=== PATIENT | male | born 1955 | race Caucasian/White ===

== ENCOUNTER → 2020-12-23 05:00 | Outpatient (REF) | payer MEDICAID, SELFPAY ==
[2020-12-23 08:23] LABS: Absolute Lymphocyte Count 1.75 X10^3/uL (0.83-4.51); Absolute Neutrophil Count 4.8 X10^3/uL (2.0-7.7); Basophil# 0.04 X10^3/uL; Basophil% 0.5 % (0-1); Eosinophil# 0.04 X10^3/uL; Eosinophils% 0.5 % (0-5); Hemoglobin 13.4 g/dL (13.0-16.5); Lymphocyte # 1.75 X10^3/ul (0.83-4.51); Lymphocyte % 23.9 % (19-41); Mean Corp Hgb Conc 32.7 g/dL (32-36); Mean Corpuscular Hgb 30.2 pg (27.0-32.0); Mean Corpuscular Volume 92.6 fL (80-94); Mean Platelet Vol. 11.8 fl (6.2-12.0); Monocyte% 9.5 % (0-10); NRBC Flagged by Analyzer 0 % (0-5); Neutrophil # 4.77 X10^3/uL (2.7-7.7); Neutrophil % 65.2 % (47-70); Platelet Count 178 K/mm3 (150-450); RBC Distribution Width CV 12.5 % (11.6-14.6); RBC Distribution Width SD 42.6 fl (35.1-43.9); Red Blood Count 4.43 M/mm3 (4.6-6.2); White Blood Count 7.3 K/mm3 (4.4-11.0)
[2020-12-23 08:36] LABS: Anion Gap 5 (5-15); BUN 21 mg/dL (7-18); BUN/Creat Ratio 41.6 RATIO (10-20); Calcium,Total 8.2 mg/dL (8.5-10.1); Chloride 109 mmol/L (98-107); Cholesterol 98 mg/dL (200); EST Glomerular Filtration Rate 176 mL/min (>60); Est Glom Filt Rate - Afr Amer 213 mL/min (>60); Glucose 100 mg/dL (74-106); High Density Lipoprotein 37 mg/dL; Potassium 3.4 mmol/L (3.5-5.1); Sodium Level 141 mmol/L (136-145); Triglycerides 169 mg/dL; Very Low Density Lipoprotein 34 mg/dL (5-40)
== END ==
LOC: OLS.SANC 05:00
PROVIDERS: Visit Provider Internal Medicine
DX: F20.9 Schizophrenia, unspecified (principal)
CPT/HCPCS: 36415; 80048; 80061; 85025

== ENCOUNTER → 2020-12-28 05:00 | Outpatient (REF) | payer MEDICAID, SELFPAY ==
[2020-12-28 08:47] LABS: Hematocrit 40.7 % (40-54); Hemoglobin 13.5 g/dL (13.0-16.5); Mean Corp Hgb Conc 33.2 g/dL (32-36); Mean Corpuscular Hgb 30.5 pg (27.0-32.0); Mean Corpuscular Volume 92.1 fL (80-94); Mean Platelet Vol. 11.8 fl (6.2-12.0); NRBC Flagged by Analyzer 0 % (0-5); Platelet Count 186 K/mm3 (150-450); RBC Distribution Width CV 12.5 % (11.6-14.6); RBC Distribution Width SD 42.5 fl (35.1-43.9); Red Blood Count 4.42 M/mm3 (4.6-6.2); White Blood Count 6.5 K/mm3 (4.4-11.0)
[2020-12-28 08:51] LABS: POSITIVE DIFFERENTIAL NO
[2020-12-28 08:57] LABS: Absolute Lymphocyte Count 1.59 X10^3/uL (0.83-4.51); Absolute Neutrophil Count 4.5 X10^3/uL (2.0-7.7); Basophil# 0.04 X10^3/uL; Basophil% 0.6 % (0-1); Eosinophil# 0.03 X10^3/uL; Eosinophils% 0.4 % (0-5); Lymphocyte # 1.59 X10^3/ul (0.83-4.51); Lymphocyte % 23.6 % (19-41); Monocyte# 0.47 X10^3/uL; Neutrophil # 4.53 X10^3/uL (2.7-7.7); Neutrophil % 67.2 % (47-70)
== END ==
LOC: OLS.SANC 05:00
PROVIDERS: Visit Provider Internal Medicine
DX: F20.9 Schizophrenia, unspecified (principal)
CPT/HCPCS: 36415; 85025

== ENCOUNTER → 2020-12-30 06:10 | Outpatient (REF) | payer MEDICAID, SELFPAY ==
[2020-12-30 09:08] LABS: Absolute Lymphocyte Count 1.44 X10^3/uL (0.83-4.51); Absolute Neutrophil Count 4.5 X10^3/uL (2.0-7.7); Basophil# 0.03 X10^3/uL; Basophil% 0.5 % (0-1); Eosinophil# 0.03 X10^3/uL; Eosinophils% 0.5 % (0-5); Hematocrit 40.9 % (40-54); Hemoglobin 13.7 g/dL (13.0-16.5); Lymphocyte # 1.44 X10^3/ul (0.83-4.51); Lymphocyte % 21.8 % (19-41); Mean Corp Hgb Conc 33.5 g/dL (32-36); Mean Corpuscular Volume 92.5 fL (80-94); Mean Platelet Vol. 11.8 fl (6.2-12.0); Monocyte# 0.57 X10^3/uL; Monocyte% 8.6 % (0-10); NRBC Flagged by Analyzer 0 % (0-5); Neutrophil # 4.51 X10^3/uL (2.7-7.7); Neutrophil % 68.3 % (47-70); Platelet Count 177 K/mm3 (150-450); RBC Distribution Width CV 12.9 % (11.6-14.6); RBC Distribution Width SD 43.3 fl (35.1-43.9); Red Blood Count 4.42 M/mm3 (4.6-6.2); White Blood Count 6.6 K/mm3 (4.4-11.0)
== END ==
LOC: OLS.SANC 06:10
PROVIDERS: Visit Provider Internal Medicine
DX: Z79.899 Other long term (current) drug therapy (principal)
CPT/HCPCS: 36415; 85025

== ENCOUNTER → 2021-01-05 05:00 | Outpatient (REF) | payer MEDICAID, SELFPAY ==
[2021-01-05 11:16] LABS: Absolute Lymphocyte Count 1.64 X10^3/uL (0.83-4.51); Basophil# 0.04 X10^3/uL; Basophil% 0.5 % (0-1); Eosinophil# 0.06 X10^3/uL; Eosinophils% 0.8 % (0-5); Hematocrit 40.9 % (40-54); Hemoglobin 13.6 g/dL (13.0-16.5); Lymphocyte # 1.64 X10^3/ul (0.83-4.51); Lymphocyte % 21.8 % (19-41); Mean Corp Hgb Conc 33.3 g/dL (32-36); Mean Corpuscular Hgb 30.7 pg (27.0-32.0); Mean Corpuscular Volume 92.3 fL (80-94); Mean Platelet Vol. 12.5 fl (6.2-12.0); Monocyte# 0.78 X10^3/uL; Monocyte% 10.4 % (0-10); NRBC Flagged by Analyzer 0 % (0-5); Neutrophil # 4.98 X10^3/uL (2.7-7.7); Neutrophil % 66.1 % (47-70); Platelet Count 158 K/mm3 (150-450); RBC Distribution Width CV 12.9 % (11.6-14.6); RBC Distribution Width SD 43.5 fl (35.1-43.9); Red Blood Count 4.43 M/mm3 (4.6-6.2); White Blood Count 7.5 K/mm3 (4.4-11.0)
[2021-01-05 11:54] LABS: AST(SGOT) 16 U/L (15-37); Alanine Aminotransfer ALT/SGPT 30 U/L (16-61); Albumin, Serum 3.1 g/dL (3.2-5.0); Alkaline Phosphatase 104 U/L (45-117); Anion Gap 4 (5-15); BUN 16 mg/dL (7-18); BUN/Creat Ratio 34.4 RATIO (10-20); Calcium,Total 8.3 mg/dL (8.5-10.1); Chloride 106 mmol/L (98-107); Creatinine, Serum 0.46 mg/dL (0.70-1.30); EST Glomerular Filtration Rate 194 mL/min (>60); Est Glom Filt Rate - Afr Amer 234 mL/min (>60); Globulin 3.2 g/dL (2.2-4.2); Glucose 69 mg/dL (74-106); Potassium 3.4 mmol/L (3.5-5.1); Protein, Total 6.3 g/dL (6.4-8.2); Sodium Level 141 mmol/L (136-145)
== END ==
LOC: OLS.SANC 05:00
PROVIDERS: Visit Provider Internal Medicine
DX: F20.9 Schizophrenia, unspecified (principal)
CPT/HCPCS: 36415; 80053; 85025

== ENCOUNTER → 2021-01-11 05:00 | Outpatient (REF) | payer MEDICAID, SELFPAY ==
[2021-01-11 08:53] LABS: Absolute Lymphocyte Count 1.69 X10^3/uL (0.83-4.51); Absolute Neutrophil Count 4.3 X10^3/uL (2.0-7.7); Basophil# 0.04 X10^3/uL; Basophil% 0.6 % (0-1); Eosinophil# 0.05 X10^3/uL; Eosinophils% 0.8 % (0-5); Hematocrit 42.5 % (40-54); Hemoglobin 13.9 g/dL (13.0-16.5); Lymphocyte # 1.69 X10^3/ul (0.83-4.51); Lymphocyte % 25.8 % (19-41); Mean Corp Hgb Conc 32.7 g/dL (32-36); Mean Corpuscular Hgb 30.7 pg (27.0-32.0); Mean Corpuscular Volume 93.8 fL (80-94); Mean Platelet Vol. 11.7 fl (6.2-12.0); Monocyte% 7.6 % (0-10); NRBC Flagged by Analyzer 0 % (0-5); Neutrophil # 4.25 X10^3/uL (2.7-7.7); Neutrophil % 64.7 % (47-70); Platelet Count 195 K/mm3 (150-450); RBC Distribution Width CV 12.6 % (11.6-14.6); RBC Distribution Width SD 43.4 fl (35.1-43.9); Red Blood Count 4.53 M/mm3 (4.6-6.2); White Blood Count 6.6 K/mm3 (4.4-11.0)
[2021-01-11 09:09] LABS: Anion Gap 6 (5-15); BUN 15 mg/dL (7-18); BUN/Creat Ratio 32.2 RATIO (10-20); Calcium,Total 8.3 mg/dL (8.5-10.1); Chloride 105 mmol/L (98-107); Cholesterol 99 mg/dL (200); Creatinine, Serum 0.47 mg/dL (0.70-1.30); EST Glomerular Filtration Rate 193 mL/min (>60); Est Glom Filt Rate - Afr Amer 234 mL/min (>60); Glucose 91 mg/dL (74-106); High Density Lipoprotein 34 mg/dL; Sodium Level 141 mmol/L (136-145); Triglycerides 154 mg/dL; Very Low Density Lipoprotein 31 mg/dL (5-40)
== END ==
LOC: OLS.SANC 05:00
PROVIDERS: Visit Provider Internal Medicine
DX: F20.9 Schizophrenia, unspecified (principal)
CPT/HCPCS: 36415; 80048; 80061; 85025

== ENCOUNTER → 2021-01-13 05:00 | Outpatient (REF) | payer MEDICAID, SELFPAY ==
[2021-01-13 10:01] LABS: Absolute Lymphocyte Count 1.58 X10^3/uL (0.83-4.51); Absolute Neutrophil Count 4.3 X10^3/uL (2.0-7.7); Basophil# 0.03 X10^3/uL; Basophil% 0.5 % (0-1); Eosinophil# 0.05 X10^3/uL; Eosinophils% 0.8 % (0-5); Hematocrit 41.9 % (40-54); Hemoglobin 13.6 g/dL (13.0-16.5); Lymphocyte # 1.58 X10^3/ul (0.83-4.51); Lymphocyte % 24.8 % (19-41); Mean Corp Hgb Conc 32.5 g/dL (32-36); Mean Corpuscular Hgb 30.1 pg (27.0-32.0); Mean Corpuscular Volume 92.7 fL (80-94); Mean Platelet Vol. 11.8 fl (6.2-12.0); Monocyte# 0.42 X10^3/uL; Monocyte% 6.6 % (0-10); NRBC Flagged by Analyzer 0 % (0-5); Neutrophil # 4.26 X10^3/uL (2.7-7.7); Platelet Count 196 K/mm3 (150-450); RBC Distribution Width CV 12.4 % (11.6-14.6); RBC Distribution Width SD 42.3 fl (35.1-43.9); Red Blood Count 4.52 M/mm3 (4.6-6.2); White Blood Count 6.4 K/mm3 (4.4-11.0)
[2021-01-13 10:14] LABS: Anion Gap 4 (5-15); BUN 14 mg/dL (7-18); BUN/Creat Ratio 28.8 RATIO (10-20); Calcium,Total 8.4 mg/dL (8.5-10.1); Chloride 105 mmol/L (98-107); Creatinine, Serum 0.49 mg/dL (0.70-1.30); EST Glomerular Filtration Rate 184 mL/min (>60); Est Glom Filt Rate - Afr Amer 223 mL/min (>60); Glucose 128 mg/dL (74-106); Potassium 3.3 mmol/L (3.5-5.1); Sodium Level 139 mmol/L (136-145)
== END ==
LOC: OLS.SANC 05:00
PROVIDERS: Visit Provider Internal Medicine
DX: F03.90 Unspecified dementia, unspecified severity, without behavioral disturbance, psychotic disturbance, mood disturbance, and anxiety (principal); E78.5 Hyperlipidemia, unspecified; F20.9 Schizophrenia, unspecified
CPT/HCPCS: 36415; 80048; 85025

== ENCOUNTER → 2021-01-18 05:00 | Outpatient (REF) | payer MEDICAID, SELFPAY ==
[2021-01-18 08:50] LABS: Absolute Lymphocyte Count 1.72 X10^3/uL (0.83-4.51); Basophil# 0.05 X10^3/uL; Basophil% 0.7 % (0-1); Eosinophil# 0.08 X10^3/uL; Eosinophils% 1.1 % (0-5); Hematocrit 40.4 % (40-54); Hemoglobin 13.1 g/dL (13.0-16.5); Lymphocyte # 1.72 X10^3/ul (0.83-4.51); Lymphocyte % 22.8 % (19-41); Mean Corp Hgb Conc 32.4 g/dL (32-36); Mean Corpuscular Hgb 30.4 pg (27.0-32.0); Mean Corpuscular Volume 93.7 fL (80-94); Mean Platelet Vol. 11.7 fl (6.2-12.0); Monocyte# 0.67 X10^3/uL; Monocyte% 8.9 % (0-10); NRBC Flagged by Analyzer 0 % (0-5); Neutrophil # 4.99 X10^3/uL (2.7-7.7); Neutrophil % 66.2 % (47-70); Platelet Count 174 K/mm3 (150-450); RBC Distribution Width CV 12.5 % (11.6-14.6); RBC Distribution Width SD 43.3 fl (35.1-43.9); Red Blood Count 4.31 M/mm3 (4.6-6.2); White Blood Count 7.5 K/mm3 (4.4-11.0)
== END ==
LOC: OLS.SANC 05:00
PROVIDERS: Visit Provider Internal Medicine
DX: F20.9 Schizophrenia, unspecified (principal); Z79.899 Other long term (current) drug therapy
CPT/HCPCS: 36415; 85025

== ENCOUNTER → 2021-01-25 05:50 | Outpatient (REF) | payer MEDICAID, SELFPAY ==
[2021-01-25 07:38] LABS: Absolute Lymphocyte Count 1.57 X10^3/uL (0.83-4.51); Absolute Neutrophil Count 4.4 X10^3/uL (2.0-7.7); Basophil# 0.03 X10^3/uL; Basophil% 0.5 % (0-1); Eosinophil# 0.05 X10^3/uL; Eosinophils% 0.8 % (0-5); Hematocrit 41.8 % (40-54); Hemoglobin 13.6 g/dL (13.0-16.5); Lymphocyte # 1.57 X10^3/ul (0.83-4.51); Lymphocyte % 24.3 % (19-41); Mean Corp Hgb Conc 32.5 g/dL (32-36); Mean Corpuscular Hgb 30.5 pg (27.0-32.0); Mean Corpuscular Volume 93.7 fL (80-94); Mean Platelet Vol. 11.8 fl (6.2-12.0); Monocyte% 6.2 % (0-10); NRBC Flagged by Analyzer 0 % (0-5); Neutrophil # 4.39 X10^3/uL (2.7-7.7); Neutrophil % 67.7 % (47-70); Platelet Count 193 K/mm3 (150-450); RBC Distribution Width CV 12.7 % (11.6-14.6); RBC Distribution Width SD 43.2 fl (35.1-43.9); Red Blood Count 4.46 M/mm3 (4.6-6.2); White Blood Count 6.5 K/mm3 (4.4-11.0)
== END ==
LOC: OLS.SANC 05:50
PROVIDERS: Visit Provider Internal Medicine
DX: F20.9 Schizophrenia, unspecified (principal)
CPT/HCPCS: 36415; 85025

== ENCOUNTER → 2021-02-01 05:00 | Outpatient (REF) | payer MEDICAID, SELFPAY ==
[2021-02-01 08:53] LABS: Absolute Lymphocyte Count 1.38 X10^3/uL (0.83-4.51); Absolute Neutrophil Count 4.8 X10^3/uL (2.0-7.7); Basophil# 0.02 X10^3/uL; Basophil% 0.3 % (0-1); Eosinophil# 0.05 X10^3/uL; Eosinophils% 0.7 % (0-5); Hematocrit 41.7 % (40-54); Hemoglobin 13.7 g/dL (13.0-16.5); Lymphocyte # 1.38 X10^3/ul (0.83-4.51); Lymphocyte % 20.5 % (19-41); Mean Corp Hgb Conc 32.9 g/dL (32-36); Mean Corpuscular Hgb 30.6 pg (27.0-32.0); Mean Corpuscular Volume 93.3 fL (80-94); Mean Platelet Vol. 11.6 fl (6.2-12.0); Monocyte# 0.51 X10^3/uL; Monocyte% 7.6 % (0-10); NRBC Flagged by Analyzer 0 % (0-5); Neutrophil # 4.75 X10^3/uL (2.7-7.7); Neutrophil % 70.6 % (47-70); Platelet Count 167 K/mm3 (150-450); RBC Distribution Width CV 12.9 % (11.6-14.6); RBC Distribution Width SD 44.2 fl (35.1-43.9); Red Blood Count 4.47 M/mm3 (4.6-6.2); White Blood Count 6.7 K/mm3 (4.4-11.0)
== END ==
LOC: OLS.SANC 05:00
PROVIDERS: Visit Provider Internal Medicine
DX: F20.0 Paranoid schizophrenia (principal); Z79.899 Other long term (current) drug therapy
CPT/HCPCS: 36415; 85025

== ENCOUNTER → 2021-02-08 04:00 | Outpatient (REF) | payer MEDICAID, SELFPAY ==
[2021-02-08 08:11] LABS: Absolute Lymphocyte Count 2.14 X10^3/uL (0.83-4.51); Absolute Neutrophil Count 3.9 X10^3/uL (2.0-7.7); Basophil# 0.05 X10^3/uL; Basophil% 0.8 % (0-1); Eosinophil# 0.04 X10^3/uL; Eosinophils% 0.6 % (0-5); Hemoglobin 13.4 g/dL (13.0-16.5); Lymphocyte # 2.14 X10^3/ul (0.83-4.51); Lymphocyte % 32.7 % (19-41); Mean Corp Hgb Conc 32.7 g/dL (32-36); Mean Corpuscular Hgb 30.2 pg (27.0-32.0); Mean Corpuscular Volume 92.3 fL (80-94); Mean Platelet Vol. 11.1 fl (6.2-12.0); Monocyte# 0.43 X10^3/uL; Monocyte% 6.6 % (0-10); NRBC Flagged by Analyzer 0 % (0-5); Neutrophil # 3.88 X10^3/uL (2.7-7.7); Neutrophil % 59.1 % (47-70); Platelet Count 175 K/mm3 (150-450); RBC Distribution Width CV 12.6 % (11.6-14.6); RBC Distribution Width SD 42.8 fl (35.1-43.9); Red Blood Count 4.44 M/mm3 (4.6-6.2); White Blood Count 6.6 K/mm3 (4.4-11.0)
== END ==
LOC: OLS.SANC 04:00
PROVIDERS: Visit Provider Internal Medicine
DX: F20.9 Schizophrenia, unspecified (principal); Z79.899 Other long term (current) drug therapy
CPT/HCPCS: 36415; 85025

== ENCOUNTER → 2021-02-15 08:30 | Outpatient (REF) | payer MEDICAID, SELFPAY ==
[2021-02-15 10:23] LABS: Absolute Lymphocyte Count 1.73 X10^3/uL (0.83-4.51); Absolute Neutrophil Count 4.4 X10^3/uL (2.0-7.7); Basophil# 0.03 X10^3/uL; Basophil% 0.4 % (0-1); Eosinophil# 0.05 X10^3/uL; Eosinophils% 0.7 % (0-5); Hematocrit 43.1 % (40-54); Lymphocyte # 1.73 X10^3/ul (0.83-4.51); Lymphocyte % 25.8 % (19-41); Mean Corp Hgb Conc 32.5 g/dL (32-36); Mean Corpuscular Hgb 30.6 pg (27.0-32.0); Mean Corpuscular Volume 94.3 fL (80-94); Mean Platelet Vol. 11.7 fl (6.2-12.0); Monocyte# 0.44 X10^3/uL; Monocyte% 6.6 % (0-10); NRBC Flagged by Analyzer 0 % (0-5); Neutrophil # 4.43 X10^3/uL (2.7-7.7); Neutrophil % 66.2 % (47-70); Platelet Count 171 K/mm3 (150-450); RBC Distribution Width CV 12.4 % (11.6-14.6); RBC Distribution Width SD 42.9 fl (35.1-43.9); Red Blood Count 4.57 M/mm3 (4.6-6.2); White Blood Count 6.7 K/mm3 (4.4-11.0)
== END ==
LOC: OLS.SANC 08:30
PROVIDERS: Visit Provider Internal Medicine
DX: Z79.899 Other long term (current) drug therapy (principal); F20.9 Schizophrenia, unspecified
CPT/HCPCS: 36415; 85025

== ENCOUNTER → 2021-02-22 04:00 | Outpatient (REF) | payer MEDICAID, SELFPAY ==
[2021-02-22 08:34] LABS: Absolute Lymphocyte Count 1.64 X10^3/uL (0.83-4.51); Absolute Neutrophil Count 3.5 X10^3/uL (2.0-7.7); Basophil# 0.04 X10^3/uL; Basophil% 0.7 % (0-1); Eosinophil# 0.04 X10^3/uL; Eosinophils% 0.7 % (0-5); Hematocrit 41.7 % (40-54); Hemoglobin 13.8 g/dL (13.0-16.5); Lymphocyte # 1.64 X10^3/ul (0.83-4.51); Lymphocyte % 28.9 % (19-41); Mean Corp Hgb Conc 33.1 g/dL (32-36); Mean Corpuscular Hgb 30.8 pg (27.0-32.0); Mean Corpuscular Volume 93.1 fL (80-94); Monocyte# 0.47 X10^3/uL; Monocyte% 8.3 % (0-10); NRBC Flagged by Analyzer 0 % (0-5); Neutrophil # 3.46 X10^3/uL (2.7-7.7); Platelet Count 170 K/mm3 (150-450); RBC Distribution Width CV 12.4 % (11.6-14.6); RBC Distribution Width SD 42.6 fl (35.1-43.9); Red Blood Count 4.48 M/mm3 (4.6-6.2); White Blood Count 5.7 K/mm3 (4.4-11.0)
== END ==
LOC: OLS.SANC 04:00
PROVIDERS: Visit Provider Family Medicine
DX: J96.92 Respiratory failure, unspecified with hypercapnia (principal)
CPT/HCPCS: 36415; 85025

== ENCOUNTER → 2021-03-01 10:15 | Outpatient (REF) | payer MEDICAID, SELFPAY ==
[2021-03-01 11:09] LABS: Absolute Lymphocyte Count 1.77 X10^3/uL (0.83-4.51); Absolute Neutrophil Count 4.7 X10^3/uL (2.0-7.7); Basophil# 0.03 X10^3/uL; Basophil% 0.4 % (0-1); Eosinophil# 0.03 X10^3/uL; Eosinophils% 0.4 % (0-5); Hematocrit 43.3 % (40-54); Hemoglobin 14.5 g/dL (13.0-16.5); Lymphocyte # 1.77 X10^3/ul (0.83-4.51); Mean Corp Hgb Conc 33.5 g/dL (32-36); Mean Corpuscular Hgb 30.7 pg (27.0-32.0); Mean Corpuscular Volume 91.5 fL (80-94); Mean Platelet Vol. 11.6 fl (6.2-12.0); Monocyte# 0.52 X10^3/uL; Monocyte% 7.4 % (0-10); NRBC Flagged by Analyzer 0 % (0-5); Neutrophil # 4.71 X10^3/uL (2.7-7.7); Neutrophil % 66.7 % (47-70); Platelet Count 171 K/mm3 (150-450); RBC Distribution Width CV 12.3 % (11.6-14.6); Red Blood Count 4.73 M/mm3 (4.6-6.2); White Blood Count 7.1 K/mm3 (4.4-11.0)
== END ==
LOC: OLS.SANC 10:15
PROVIDERS: Visit Provider Internal Medicine
DX: F20.9 Schizophrenia, unspecified (principal)
CPT/HCPCS: 36415; 85025

== ENCOUNTER → 2021-03-08 08:00 | Outpatient (REF) | payer MEDICAID, SELFPAY ==
[2021-03-08 10:44] LABS: Absolute Neutrophil Count 4.3 X10^3/uL (2.0-7.7); Basophil# 0.04 X10^3/uL; Basophil% 0.6 % (0-1); Eosinophil# 0.04 X10^3/uL; Eosinophils% 0.6 % (0-5); Hematocrit 38.9 % (40-54); Mean Corp Hgb Conc 33.4 g/dL (32-36); Mean Corpuscular Hgb 30.7 pg (27.0-32.0); Mean Platelet Vol. 11.7 fl (6.2-12.0); Monocyte# 0.53 X10^3/uL; Monocyte% 8.3 % (0-10); NRBC Flagged by Analyzer 0 % (0-5); Neutrophil # 4.33 X10^3/uL (2.7-7.7); Platelet Count 173 K/mm3 (150-450); RBC Distribution Width CV 12.4 % (11.6-14.6); RBC Distribution Width SD 41.8 fl (35.1-43.9); Red Blood Count 4.23 M/mm3 (4.6-6.2); White Blood Count 6.4 K/mm3 (4.4-11.0)
== END ==
LOC: OLS.SANC 08:00
PROVIDERS: Visit Provider Internal Medicine
DX: I10 Essential (primary) hypertension (principal); Z79.899 Other long term (current) drug therapy
CPT/HCPCS: 36415; 85025

== ENCOUNTER → 2021-03-15 05:00 | Outpatient (REF) | payer MEDICAID, SELFPAY ==
[2021-03-15 07:57] LABS: Absolute Lymphocyte Count 1.63 X10^3/uL (0.83-4.51); Absolute Neutrophil Count 5.2 X10^3/uL (2.0-7.7); Basophil# 0.04 X10^3/uL; Basophil% 0.5 % (0-1); Eosinophil# 0.06 X10^3/uL; Eosinophils% 0.8 % (0-5); Hematocrit 39.6 % (40-54); Hemoglobin 13.1 g/dL (13.0-16.5); Lymphocyte # 1.63 X10^3/ul (0.83-4.51); Lymphocyte % 21.6 % (19-41); Mean Corp Hgb Conc 33.1 g/dL (32-36); Mean Corpuscular Hgb 30.5 pg (27.0-32.0); Mean Corpuscular Volume 92.1 fL (80-94); Monocyte# 0.59 X10^3/uL; Monocyte% 7.8 % (0-10); NRBC Flagged by Analyzer 0 % (0-5); Neutrophil % 68.9 % (47-70); Platelet Count 160 K/mm3 (150-450); RBC Distribution Width CV 12.6 % (11.6-14.6); RBC Distribution Width SD 42.2 fl (35.1-43.9); White Blood Count 7.6 K/mm3 (4.4-11.0)
== END ==
LOC: OLS.SANC 05:00
PROVIDERS: Visit Provider Internal Medicine
DX: Z79.899 Other long term (current) drug therapy (principal)
CPT/HCPCS: 36415; 85025

== ENCOUNTER → 2021-03-29 05:00 | Outpatient (REF) | payer MEDICAID, SELFPAY ==
[2021-03-29 08:14] LABS: Hematocrit 37.3 % (40-54); Hemoglobin 12.3 g/dL (13.0-16.5); Mean Corpuscular Hgb 30.4 pg (27.0-32.0); Mean Corpuscular Volume 92.1 fL (80-94); Mean Platelet Vol. 10.7 fl (6.2-12.0); Platelet Count 216 K/mm3 (150-450); RBC Distribution Width CV 12.7 % (11.6-14.6); RBC Distribution Width SD 42.3 fl (35.1-43.9); Red Blood Count 4.05 M/mm3 (4.6-6.2); White Blood Count 10.5 K/mm3 (4.4-11.0)
== END ==
LOC: OLS.SANC 05:00
PROVIDERS: Visit Provider Internal Medicine
DX: F20.9 Schizophrenia, unspecified (principal); Z79.899 Other long term (current) drug therapy
CPT/HCPCS: 36415; 85027

== ENCOUNTER → 2021-04-07 05:00 | Outpatient (REF) | payer MEDICAID, SELFPAY ==
[2021-04-07 07:39] LABS: Absolute Lymphocyte Count 1.55 X10^3/uL (0.83-4.51); Absolute Neutrophil Count 5.3 X10^3/uL (2.0-7.7); Basophil# 0.05 X10^3/uL; Basophil% 0.6 % (0-1); Eosinophil# 0.06 X10^3/uL; Eosinophils% 0.7 % (0-5); Hematocrit 38.7 % (40-54); Hemoglobin 12.9 g/dL (13.0-16.5); Lymphocyte # 1.55 X10^3/ul (0.83-4.51); Lymphocyte % 19.2 % (19-41); Mean Corp Hgb Conc 33.3 g/dL (32-36); Mean Corpuscular Hgb 30.9 pg (27.0-32.0); Mean Corpuscular Volume 92.6 fL (80-94); Mean Platelet Vol. 10.9 fl (6.2-12.0); Monocyte# 1.05 X10^3/uL; NRBC Flagged by Analyzer 0 % (0-5); Neutrophil # 5.33 X10^3/uL (2.7-7.7); Platelet Count 210 K/mm3 (150-450); RBC Distribution Width CV 13.5 % (11.6-14.6); RBC Distribution Width SD 45.8 fl (35.1-43.9); Red Blood Count 4.18 M/mm3 (4.6-6.2); White Blood Count 8.1 K/mm3 (4.4-11.0)
== END ==
LOC: OLS.SANC 05:00
PROVIDERS: Visit Provider Internal Medicine
DX: Z79.899 Other long term (current) drug therapy (principal); F20.9 Schizophrenia, unspecified
CPT/HCPCS: 36415; 85025

== ENCOUNTER → 2021-04-12 04:00 | Outpatient (REF) | payer MEDICAID, SELFPAY ==
[2021-04-12 07:57] LABS: Absolute Lymphocyte Count 1.41 X10^3/uL (0.83-4.51); Absolute Neutrophil Count 3.4 X10^3/uL (2.0-7.7); Basophil# 0.03 X10^3/uL; Basophil% 0.6 % (0-1); Eosinophil# 0.05 X10^3/uL; Eosinophils% 0.9 % (0-5); Hematocrit 38.2 % (40-54); Hemoglobin 12.4 g/dL (13.0-16.5); Lymphocyte # 1.41 X10^3/ul (0.83-4.51); Lymphocyte % 25.9 % (19-41); Mean Corp Hgb Conc 32.5 g/dL (32-36); Mean Corpuscular Hgb 30.3 pg (27.0-32.0); Mean Corpuscular Volume 93.4 fL (80-94); Mean Platelet Vol. 11.1 fl (6.2-12.0); Monocyte% 9.2 % (0-10); NRBC Flagged by Analyzer 0 % (0-5); Neutrophil # 3.44 X10^3/uL (2.7-7.7); Platelet Count 173 K/mm3 (150-450); RBC Distribution Width CV 13.7 % (11.6-14.6); RBC Distribution Width SD 46.7 fl (35.1-43.9); Red Blood Count 4.09 M/mm3 (4.6-6.2); White Blood Count 5.5 K/mm3 (4.4-11.0)
[2021-04-14 07:07] LABS: AST(SGOT) 15 U/L (15-37); Alanine Aminotransfer ALT/SGPT 30 U/L (16-61); Albumin, Serum 2.8 g/dL (3.2-5.0); Alkaline Phosphatase 101 U/L (45-117); Bilirubin, Direct 0.08 mg/dL (0.00-0.30); Globulin 2.9 g/dL (2.2-4.2); Protein, Total 5.7 g/dL (6.4-8.2)
== END ==
LOC: OLS.SANC 04:00
PROVIDERS: Referring Provider Internal Medicine; Visit Provider Internal Medicine
DX: F20.9 Schizophrenia, unspecified (principal); J95.821 Acute postprocedural respiratory failure; Z79.899 Other long term (current) drug therapy
CPT/HCPCS: 36415; 80076; 85025

== ENCOUNTER → 2021-04-19 05:00 | Outpatient (REF) | payer MEDICAID, SELFPAY ==
[2021-04-19 09:20] LABS: Absolute Lymphocyte Count 1.31 X10^3/uL (0.83-4.51); Basophil# 0.05 X10^3/uL; Eosinophil# 0.14 X10^3/uL; Eosinophils% 2.8 % (0-5); Hematocrit 39.9 % (40-54); Hemoglobin 13.2 g/dL (13.0-16.5); Lymphocyte # 1.31 X10^3/ul (0.83-4.51); Lymphocyte % 26.1 % (19-41); Mean Corp Hgb Conc 33.1 g/dL (32-36); Mean Corpuscular Volume 93.7 fL (80-94); Mean Platelet Vol. 10.9 fl (6.2-12.0); NRBC Flagged by Analyzer 0 % (0-5); Neutrophil % 59.7 % (47-70); Platelet Count 165 K/mm3 (150-450); RBC Distribution Width CV 13.7 % (11.6-14.6); RBC Distribution Width SD 46.7 fl (35.1-43.9); Red Blood Count 4.26 M/mm3 (4.6-6.2)
== END ==
LOC: OLS.SANC 05:00
PROVIDERS: Visit Provider Internal Medicine
DX: F25.9 Schizoaffective disorder, unspecified (principal)
CPT/HCPCS: 36415; 85025

== ENCOUNTER → 2021-04-26 05:00 | Outpatient (REF) | payer MEDICAID, SELFPAY ==
[2021-04-26 09:33] LABS: Absolute Lymphocyte Count 1.68 X10^3/uL (0.83-4.51); Absolute Neutrophil Count 4.5 X10^3/uL (2.0-7.7); Basophil# 0.04 X10^3/uL; Basophil% 0.6 % (0-1); Eosinophil# 0.08 X10^3/uL; Eosinophils% 1.1 % (0-5); Hematocrit 40.3 % (40-54); Hemoglobin 13.5 g/dL (13.0-16.5); Lymphocyte # 1.68 X10^3/ul (0.83-4.51); Lymphocyte % 23.5 % (19-41); Mean Corp Hgb Conc 33.5 g/dL (32-36); Mean Corpuscular Hgb 31.3 pg (27.0-32.0); Mean Corpuscular Volume 93.3 fL (80-94); Monocyte# 0.79 X10^3/uL; NRBC Flagged by Analyzer 0 % (0-5); Neutrophil # 4.52 X10^3/uL (2.7-7.7); Neutrophil % 63.2 % (47-70); Platelet Count 172 K/mm3 (150-450); RBC Distribution Width CV 13.2 % (11.6-14.6); RBC Distribution Width SD 45.8 fl (35.1-43.9); Red Blood Count 4.32 M/mm3 (4.6-6.2); White Blood Count 7.2 K/mm3 (4.4-11.0)
== END ==
LOC: OLS.SANC 05:00
PROVIDERS: Visit Provider Internal Medicine
DX: J95.821 Acute postprocedural respiratory failure (principal); F20.9 Schizophrenia, unspecified; Z79.899 Other long term (current) drug therapy
CPT/HCPCS: 36415; 85025

== ENCOUNTER → 2021-05-03 05:00 | Outpatient (REF) | payer MEDICAID, SELFPAY ==
[2021-05-03 09:56] LABS: Absolute Lymphocyte Count 1.69 X10^3/uL (0.83-4.51); Absolute Neutrophil Count 4.6 X10^3/uL (2.0-7.7); Basophil# 0.04 X10^3/uL; Basophil% 0.6 % (0-1); Eosinophil# 0.05 X10^3/uL; Eosinophils% 0.7 % (0-5); Hematocrit 42.4 % (40-54); Lymphocyte # 1.69 X10^3/ul (0.83-4.51); Lymphocyte % 23.6 % (19-41); Mean Corpuscular Hgb 30.8 pg (27.0-32.0); Mean Corpuscular Volume 93.2 fL (80-94); Mean Platelet Vol. 11.7 fl (6.2-12.0); Monocyte# 0.74 X10^3/uL; Monocyte% 10.3 % (0-10); NRBC Flagged by Analyzer 0 % (0-5); Neutrophil # 4.62 X10^3/uL (2.7-7.7); Neutrophil % 64.4 % (47-70); Platelet Count 175 K/mm3 (150-450); RBC Distribution Width CV 13.1 % (11.6-14.6); RBC Distribution Width SD 44.2 fl (35.1-43.9); Red Blood Count 4.55 M/mm3 (4.6-6.2); White Blood Count 7.2 K/mm3 (4.4-11.0)
== END ==
LOC: OLS.SANC 05:00
PROVIDERS: Visit Provider Internal Medicine
DX: F25.9 Schizoaffective disorder, unspecified (principal); Z79.899 Other long term (current) drug therapy
CPT/HCPCS: 36415; 85025

== ENCOUNTER → 2021-05-10 04:00 | Outpatient (REF) | payer MEDICAID, SELFPAY ==
[2021-05-10 08:47] LABS: Absolute Lymphocyte Count 1.65 X10^3/uL (0.83-4.51); Absolute Neutrophil Count 5.6 X10^3/uL (2.0-7.7); Basophil# 0.04 X10^3/uL; Basophil% 0.5 % (0-1); Eosinophil# 0.06 X10^3/uL; Eosinophils% 0.7 % (0-5); Hematocrit 41.5 % (40-54); Hemoglobin 13.8 g/dL (13.0-16.5); Lymphocyte # 1.65 X10^3/ul (0.83-4.51); Lymphocyte % 20.4 % (19-41); Mean Corp Hgb Conc 33.3 g/dL (32-36); Mean Corpuscular Hgb 30.5 pg (27.0-32.0); Mean Corpuscular Volume 91.8 fL (80-94); Mean Platelet Vol. 11.3 fl (6.2-12.0); Monocyte# 0.68 X10^3/uL; Monocyte% 8.4 % (0-10); NRBC Flagged by Analyzer 0 % (0-5); Neutrophil # 5.62 X10^3/uL (2.7-7.7); Neutrophil % 69.5 % (47-70); Platelet Count 191 K/mm3 (150-450); RBC Distribution Width CV 12.8 % (11.6-14.6); RBC Distribution Width SD 42.9 fl (35.1-43.9); Red Blood Count 4.52 M/mm3 (4.6-6.2); White Blood Count 8.1 K/mm3 (4.4-11.0)
== END ==
LOC: OLS.SANC 04:00
PROVIDERS: Referring Provider Internal Medicine; Visit Provider Internal Medicine
DX: Z79.899 Other long term (current) drug therapy (principal)
CPT/HCPCS: 36415; 85025

== ENCOUNTER → 2021-05-14 04:00 | Outpatient (REF) | payer MEDICAID, SELFPAY ==
[2021-05-14 07:40] LABS: Anion Gap 6 (5-15); BUN 20 mg/dL (7-18); BUN/Creat Ratio 39.2 RATIO (10-20); Calcium,Total 8.4 mg/dL (8.5-10.1); Chloride 105 mmol/L (98-107); Creatinine, Serum 0.51 mg/dL (0.70-1.30); EST Glomerular Filtration Rate 174 mL/min (>60); Est Glom Filt Rate - Afr Amer 210 mL/min (>60); Glucose 96 mg/dL (74-106); Potassium 3.5 mmol/L (3.5-5.1); Sodium Level 141 mmol/L (136-145)
== END ==
LOC: OLS.SANC 04:00
PROVIDERS: Visit Provider Internal Medicine
DX: M62.81 Muscle weakness (generalized) (principal)
CPT/HCPCS: 36415; 80048

== ENCOUNTER → 2021-05-17 05:00 | Outpatient (REF) | payer MEDICAID, SELFPAY ==
[2021-05-17 10:36] LABS: Absolute Lymphocyte Count 1.59 X10^3/uL (0.83-4.51); Absolute Neutrophil Count 3.5 X10^3/uL (2.0-7.7); Basophil# 0.04 X10^3/uL; Basophil% 0.7 % (0-1); Eosinophils% 1.7 % (0-5); Hematocrit 40.4 % (40-54); Hemoglobin 13.4 g/dL (13.0-16.5); Lymphocyte # 1.59 X10^3/ul (0.83-4.51); Lymphocyte % 26.9 % (19-41); Mean Corp Hgb Conc 33.2 g/dL (32-36); Mean Corpuscular Hgb 30.8 pg (27.0-32.0); Mean Corpuscular Volume 92.9 fL (80-94); Mean Platelet Vol. 11.5 fl (6.2-12.0); Monocyte# 0.65 X10^3/uL; NRBC Flagged by Analyzer 0 % (0-5); Neutrophil # 3.53 X10^3/uL (2.7-7.7); Neutrophil % 59.5 % (47-70); Platelet Count 171 K/mm3 (150-450); RBC Distribution Width CV 12.7 % (11.6-14.6); RBC Distribution Width SD 43.4 fl (35.1-43.9); Red Blood Count 4.35 M/mm3 (4.6-6.2); White Blood Count 5.9 K/mm3 (4.4-11.0)
== END ==
LOC: OLS.SANC 05:00
PROVIDERS: Visit Provider Internal Medicine
DX: F25.9 Schizoaffective disorder, unspecified (principal); Z79.899 Other long term (current) drug therapy
CPT/HCPCS: 36415; 85025

== ENCOUNTER 2021-05-24 05:00 | Outpatient (REF) | payer MEDICAID, SELFPAY ==
[2021-05-24 10:13] LABS: Absolute Lymphocyte Count 1.58 X10^3/uL (0.83-4.51); Absolute Neutrophil Count 3.8 X10^3/uL (2.0-7.7); Basophil# 0.05 X10^3/uL; Basophil% 0.8 % (0-1); Eosinophil# 0.15 X10^3/uL; Eosinophils% 2.4 % (0-5); Hematocrit 41.8 % (40-54); Hemoglobin 13.7 g/dL (13.0-16.5); Lymphocyte # 1.58 X10^3/ul (0.83-4.51); Mean Corp Hgb Conc 32.8 g/dL (32-36); Mean Corpuscular Hgb 30.4 pg (27.0-32.0); Mean Corpuscular Volume 92.9 fL (80-94); Mean Platelet Vol. 11.3 fl (6.2-12.0); Monocyte# 0.71 X10^3/uL; Monocyte% 11.2 % (0-10); NRBC Flagged by Analyzer 0 % (0-5); Neutrophil # 3.81 X10^3/uL (2.7-7.7); Neutrophil % 60.3 % (47-70); Platelet Count 207 K/mm3 (150-450); RBC Distribution Width CV 12.6 % (11.6-14.6); RBC Distribution Width SD 42.8 fl (35.1-43.9); White Blood Count 6.3 K/mm3 (4.4-11.0)
== END 2021-05-24 23:59 | disposition home or self-care (01) ==
LOC: OLS.SANC 05:00
PROVIDERS: Visit Provider Internal Medicine
DX: Z79.899 Other long term (current) drug therapy (principal)
CPT/HCPCS: 36415; 85025

== ENCOUNTER 2021-05-31 05:00 | Outpatient (REF) | payer MEDICAID, SELFPAY ==
[2021-05-31 09:53] LABS: Absolute Lymphocyte Count 1.72 X10^3/uL (0.83-4.51); Absolute Neutrophil Count 3.3 X10^3/uL (2.0-7.7); Basophil# 0.04 X10^3/uL; Basophil% 0.7 % (0-1); Eosinophil# 0.06 X10^3/uL; Eosinophils% 1.1 % (0-5); Hematocrit 40.9 % (40-54); Hemoglobin 13.6 g/dL (13.0-16.5); Lymphocyte # 1.72 X10^3/ul (0.83-4.51); Lymphocyte % 30.7 % (19-41); Mean Corp Hgb Conc 33.3 g/dL (32-36); Mean Corpuscular Hgb 30.6 pg (27.0-32.0); Mean Corpuscular Volume 92.1 fL (80-94); Mean Platelet Vol. 11.2 fl (6.2-12.0); Monocyte# 0.48 X10^3/uL; Monocyte% 8.6 % (0-10); NRBC Flagged by Analyzer 0 % (0-5); Neutrophil # 3.29 X10^3/uL (2.7-7.7); Neutrophil % 58.5 % (47-70); Platelet Count 189 K/mm3 (150-450); RBC Distribution Width CV 12.4 % (11.6-14.6); RBC Distribution Width SD 42.2 fl (35.1-43.9); Red Blood Count 4.44 M/mm3 (4.6-6.2); White Blood Count 5.6 K/mm3 (4.4-11.0)
== END 2021-05-31 23:59 | disposition home or self-care (01) ==
LOC: OLS.SANC 05:00
PROVIDERS: Visit Provider Internal Medicine
DX: Z79.899 Other long term (current) drug therapy (principal)
CPT/HCPCS: 36415; 85025

== ENCOUNTER 2021-06-07 05:00 | Outpatient (REF) | payer MEDICAID, SELFPAY ==
[2021-06-07 10:19] LABS: Absolute Lymphocyte Count 1.38 X10^3/uL (0.83-4.51); Absolute Neutrophil Count 7.3 X10^3/uL (2.0-7.7); Basophil# 0.02 X10^3/uL; Basophil% 0.2 % (0-1); Hematocrit 41.6 % (40-54); Hemoglobin 13.8 g/dL (13.0-16.5); Lymphocyte # 1.38 X10^3/ul (0.83-4.51); Lymphocyte % 14.2 % (19-41); Mean Corp Hgb Conc 33.2 g/dL (32-36); Mean Corpuscular Hgb 30.8 pg (27.0-32.0); Mean Corpuscular Volume 92.9 fL (80-94); Mean Platelet Vol. 11.9 fl (6.2-12.0); Monocyte# 0.99 X10^3/uL; Monocyte% 10.2 % (0-10); NRBC Flagged by Analyzer 0 % (0-5); Neutrophil # 7.31 X10^3/uL (2.7-7.7); Neutrophil % 75.3 % (47-70); Platelet Count 152 K/mm3 (150-450); RBC Distribution Width CV 12.8 % (11.6-14.6); RBC Distribution Width SD 43.8 fl (35.1-43.9); Red Blood Count 4.48 M/mm3 (4.6-6.2); White Blood Count 9.7 K/mm3 (4.4-11.0)
== END 2021-06-07 23:59 | disposition home or self-care (01) ==
LOC: OLS.SANC 05:00
PROVIDERS: Visit Provider Internal Medicine
DX: Z79.899 Other long term (current) drug therapy (principal)
CPT/HCPCS: 36415; 85025

== ENCOUNTER → 2021-06-14 | Outpatient (REF) | payer MEDICAID, SELFPAY ==
[2021-06-14 11:42] LABS: Absolute Lymphocyte Count 1.41 X10^3/uL (0.83-4.51); Absolute Neutrophil Count 4.8 X10^3/uL (2.0-7.7); Basophil# 0.03 X10^3/uL; Basophil% 0.4 % (0-1); Eosinophil# 0.04 X10^3/uL; Eosinophils% 0.6 % (0-5); Hematocrit 42.8 % (40-54); Hemoglobin 14.9 g/dL (13.0-16.5); Lymphocyte # 1.41 X10^3/ul (0.83-4.51); Lymphocyte % 20.8 % (19-41); Mean Corp Hgb Conc 34.8 g/dL (32-36); Mean Corpuscular Hgb 31.2 pg (27.0-32.0); Mean Corpuscular Volume 89.5 fL (80-94); Mean Platelet Vol. 11.5 fl (6.2-12.0); Monocyte# 0.52 X10^3/uL; Monocyte% 7.7 % (0-10); NRBC Flagged by Analyzer 0 % (0-5); Neutrophil # 4.75 X10^3/uL (2.7-7.7); Neutrophil % 69.9 % (47-70); Platelet Count 223 K/mm3 (150-450); RBC Distribution Width SD 39.3 fl (35.1-43.9); Red Blood Count 4.78 M/mm3 (4.6-6.2); White Blood Count 6.8 K/mm3 (4.4-11.0)
[2021-06-15 04:49] LABS: Anion Gap 7 (5-15); BUN 20 mg/dL (7-18); Chloride 106 mmol/L (98-107); Creatinine, Serum 0.57 mg/dL (0.70-1.30); EST Glomerular Filtration Rate 153 mL/min (>60); Est Glom Filt Rate - Afr Amer 185 mL/min (>60); Glucose 121 mg/dL (74-106); Potassium 3.7 mmol/L (3.5-5.1); Sodium Level 140 mmol/L (136-145)
== END | disposition home or self-care (01) ==
LOC: OLS.SANC 04:00
PROVIDERS: Referring Provider Internal Medicine; Visit Provider Internal Medicine
DX: N40.0 Benign prostatic hyperplasia without lower urinary tract symptoms (principal); Z79.899 Other long term (current) drug therapy
CPT/HCPCS: 36415; 80048; 85025

== ENCOUNTER 2021-06-21 05:00 | Outpatient (REF) | payer MEDICAID, SELFPAY ==
[2021-06-21 08:59] LABS: Absolute Lymphocyte Count 1.78 X10^3/uL (0.83-4.51); Absolute Neutrophil Count 4.2 X10^3/uL (2.0-7.7); Basophil# 0.02 X10^3/uL; Basophil% 0.3 % (0-1); Eosinophil# 0.03 X10^3/uL; Eosinophils% 0.4 % (0-5); Hematocrit 38.3 % (40-54); Hemoglobin 13.3 g/dL (13.0-16.5); Lymphocyte # 1.78 X10^3/ul (0.83-4.51); Lymphocyte % 26.3 % (19-41); Mean Corp Hgb Conc 34.7 g/dL (32-36); Mean Corpuscular Hgb 31.6 pg (27.0-32.0); Mean Platelet Vol. 11.5 fl (6.2-12.0); Monocyte# 0.67 X10^3/uL; Monocyte% 9.9 % (0-10); NRBC Flagged by Analyzer 0 % (0-5); Neutrophil # 4.23 X10^3/uL (2.7-7.7); Neutrophil % 62.7 % (47-70); Platelet Count 217 K/mm3 (150-450); RBC Distribution Width CV 12.2 % (11.6-14.6); RBC Distribution Width SD 40.2 fl (35.1-43.9); Red Blood Count 4.21 M/mm3 (4.6-6.2); White Blood Count 6.8 K/mm3 (4.4-11.0)
== END 2021-06-21 23:59 | disposition home or self-care (01) ==
LOC: OLS.SANC 05:00
PROVIDERS: Visit Provider Internal Medicine
DX: Z79.899 Other long term (current) drug therapy (principal)
CPT/HCPCS: 36415; 85025

== ENCOUNTER 2021-06-28 05:15 | Outpatient (REF) | payer MEDICAID, SELFPAY ==
[2021-06-28 08:38] LABS: Absolute Lymphocyte Count 2.01 X10^3/uL (0.83-4.51); Absolute Neutrophil Count 3.3 X10^3/uL (2.0-7.7); Basophil# 0.03 X10^3/uL; Basophil% 0.5 % (0-1); Eosinophil# 0.02 X10^3/uL; Eosinophils% 0.3 % (0-5); Hematocrit 38.8 % (40-54); Hemoglobin 13.5 g/dL (13.0-16.5); Lymphocyte # 2.01 X10^3/ul (0.83-4.51); Lymphocyte % 33.5 % (19-41); Mean Corp Hgb Conc 34.8 g/dL (32-36); Mean Corpuscular Hgb 31.3 pg (27.0-32.0); Mean Corpuscular Volume 89.8 fL (80-94); Mean Platelet Vol. 11.8 fl (6.2-12.0); NRBC Flagged by Analyzer 0 % (0-5); Neutrophil # 3.33 X10^3/uL (2.7-7.7); Neutrophil % 55.5 % (47-70); Platelet Count 185 K/mm3 (150-450); RBC Distribution Width CV 12.5 % (11.6-14.6); RBC Distribution Width SD 40.6 fl (35.1-43.9); Red Blood Count 4.32 M/mm3 (4.6-6.2)
== END 2021-06-28 23:59 | disposition home or self-care (01) ==
LOC: OLS.SANC 05:15
PROVIDERS: Visit Provider Internal Medicine
DX: F20.9 Schizophrenia, unspecified (principal)
CPT/HCPCS: 36415; 85025

== ENCOUNTER → 2021-07-05 | Outpatient (REF) | payer MEDICAID, SELFPAY ==
[2021-07-05 09:28] LABS: Absolute Lymphocyte Count 1.55 X10^3/uL (0.83-4.51); Absolute Neutrophil Count 5.5 X10^3/uL (2.0-7.7); Basophil# 0.03 X10^3/uL; Basophil% 0.4 % (0-1); Eosinophil# 0.02 X10^3/uL; Eosinophils% 0.3 % (0-5); Hematocrit 40.6 % (40-54); Hemoglobin 13.4 g/dL (13.0-16.5); Lymphocyte # 1.55 X10^3/ul (0.83-4.51); Mean Platelet Vol. 11.7 fl (6.2-12.0); Monocyte# 0.63 X10^3/uL; Monocyte% 8.1 % (0-10); NRBC Flagged by Analyzer 0 % (0-5); Neutrophil % 70.9 % (47-70); Platelet Count 186 K/mm3 (150-450); RBC Distribution Width CV 12.8 % (11.6-14.6); RBC Distribution Width SD 41.9 fl (35.1-43.9); Red Blood Count 4.46 M/mm3 (4.6-6.2); White Blood Count 7.8 K/mm3 (4.4-11.0)
[2021-07-05 09:47] LABS: Cholesterol 148 mg/dL (200); High Density Lipoprotein 30 mg/dL; Triglycerides 201 mg/dL; Very Low Density Lipoprotein 40 mg/dL (5-40)
== END | disposition home or self-care (01) ==
LOC: OLS.SANC 05:00
PROVIDERS: Visit Provider Internal Medicine
DX: Z79.899 Other long term (current) drug therapy (principal); Z51.81 Encounter for therapeutic drug level monitoring
CPT/HCPCS: 36415; 80061; 85025

== ENCOUNTER 2021-07-12 04:00 | Outpatient (REF) | payer MEDICAID, SELFPAY ==
[2021-07-12 09:34] LABS: Absolute Lymphocyte Count 1.42 X10^3/uL (0.83-4.51); Absolute Neutrophil Count 4.7 X10^3/uL (2.0-7.7); Basophil# 0.04 X10^3/uL; Basophil% 0.6 % (0-1); Eosinophil# 0.02 X10^3/uL; Eosinophils% 0.3 % (0-5); Hemoglobin 14.4 g/dL (13.0-16.5); Lymphocyte # 1.42 X10^3/ul (0.83-4.51); Lymphocyte % 20.4 % (19-41); Mean Corp Hgb Conc 34.3 g/dL (32-36); Mean Corpuscular Hgb 31.2 pg (27.0-32.0); Mean Corpuscular Volume 91.1 fL (80-94); Mean Platelet Vol. 11.2 fl (6.2-12.0); Monocyte# 0.77 X10^3/uL; Monocyte% 11.1 % (0-10); NRBC Flagged by Analyzer 0 % (0-5); Neutrophil # 4.69 X10^3/uL (2.7-7.7); Neutrophil % 67.3 % (47-70); Platelet Count 184 K/mm3 (150-450); RBC Distribution Width CV 12.6 % (11.6-14.6); RBC Distribution Width SD 41.4 fl (35.1-43.9); Red Blood Count 4.61 M/mm3 (4.6-6.2)
== END 2021-07-12 23:59 | disposition home or self-care (01) ==
LOC: OLS.SANC 04:00
PROVIDERS: Referring Provider Internal Medicine; Visit Provider Internal Medicine
DX: E78.5 Hyperlipidemia, unspecified (principal); F20.9 Schizophrenia, unspecified; E78.2 Mixed hyperlipidemia; E03.9 Hypothyroidism, unspecified; E55.9 Vitamin D deficiency, unspecified; Z79.899 Other long term (current) drug therapy
CPT/HCPCS: 36415; 85025

== ENCOUNTER 2021-07-19 04:00 | Outpatient (REF) | payer MEDICAID, SELFPAY ==
[2021-07-19 08:47] LABS: Absolute Lymphocyte Count 2.04 X10^3/uL (0.83-4.51); Basophil# 0.02 X10^3/uL; Basophil% 0.3 % (0-1); Eosinophil# 0.03 X10^3/uL; Eosinophils% 0.4 % (0-5); Hemoglobin 14.1 g/dL (13.0-16.5); Lymphocyte # 2.04 X10^3/ul (0.83-4.51); Lymphocyte % 30.5 % (19-41); Mean Corp Hgb Conc 34.4 g/dL (32-36); Mean Corpuscular Hgb 31.1 pg (27.0-32.0); Mean Corpuscular Volume 90.5 fL (80-94); Mean Platelet Vol. 11.4 fl (6.2-12.0); NRBC Flagged by Analyzer 0 % (0-5); Neutrophil # 3.96 X10^3/uL (2.7-7.7); Neutrophil % 59.2 % (47-70); Platelet Count 193 K/mm3 (150-450); RBC Distribution Width CV 12.5 % (11.6-14.6); RBC Distribution Width SD 41.1 fl (35.1-43.9); Red Blood Count 4.53 M/mm3 (4.6-6.2); White Blood Count 6.7 K/mm3 (4.4-11.0)
== END 2021-07-19 23:59 | disposition home or self-care (01) ==
LOC: OLS.SANC 04:00
PROVIDERS: Visit Provider Internal Medicine
DX: Z79.899 Other long term (current) drug therapy (principal)
CPT/HCPCS: 36415; 85025

== ENCOUNTER → 2021-07-26 | Outpatient (REF) | payer MEDICAID, SELFPAY ==
[2021-07-26 08:25] LABS: Absolute Lymphocyte Count 1.83 X10^3/uL (0.83-4.51); Absolute Neutrophil Count 3.3 X10^3/uL (2.0-7.7); Basophil# 0.03 X10^3/uL; Basophil% 0.5 % (0-1); Eosinophil# 0.02 X10^3/uL; Eosinophils% 0.3 % (0-5); Hematocrit 38.2 % (40-54); Hemoglobin 12.9 g/dL (13.0-16.5); Lymphocyte # 1.83 X10^3/ul (0.83-4.51); Lymphocyte % 31.9 % (19-41); Mean Corp Hgb Conc 33.8 g/dL (32-36); Mean Corpuscular Hgb 30.6 pg (27.0-32.0); Mean Corpuscular Volume 90.7 fL (80-94); Mean Platelet Vol. 11.5 fl (6.2-12.0); Monocyte# 0.51 X10^3/uL; Monocyte% 8.9 % (0-10); NRBC Flagged by Analyzer 0 % (0-5); Neutrophil # 3.33 X10^3/uL (2.7-7.7); Neutrophil % 58.1 % (47-70); Platelet Count 180 K/mm3 (150-450); RBC Distribution Width CV 12.5 % (11.6-14.6); RBC Distribution Width SD 41.2 fl (35.1-43.9); Red Blood Count 4.21 M/mm3 (4.6-6.2); White Blood Count 5.7 K/mm3 (4.4-11.0)
== END | disposition home or self-care (01) ==
LOC: OLS.SANC 05:00
PROVIDERS: Visit Provider Internal Medicine
DX: F20.9 Schizophrenia, unspecified (principal)
CPT/HCPCS: 36415; 85025

== ENCOUNTER → 2021-08-02 | Outpatient (REF) | payer MEDICAID, SELFPAY ==
[2021-08-02 09:53] LABS: Absolute Lymphocyte Count 1.69 X10^3/uL (0.83-4.51); Absolute Neutrophil Count 3.8 X10^3/uL (2.0-7.7); Basophil# 0.02 X10^3/uL; Basophil% 0.3 % (0-1); Eosinophil# 0.02 X10^3/uL; Eosinophils% 0.3 % (0-5); Hematocrit 40.9 % (40-54); Hemoglobin 13.8 g/dL (13.0-16.5); Lymphocyte # 1.69 X10^3/ul (0.83-4.51); Lymphocyte % 27.7 % (19-41); Mean Corp Hgb Conc 33.7 g/dL (32-36); Mean Corpuscular Hgb 30.4 pg (27.0-32.0); Mean Corpuscular Volume 90.1 fL (80-94); Mean Platelet Vol. 11.2 fl (6.2-12.0); Monocyte# 0.58 X10^3/uL; Monocyte% 9.5 % (0-10); NRBC Flagged by Analyzer 0 % (0-5); Neutrophil # 3.78 X10^3/uL (2.7-7.7); Neutrophil % 61.9 % (47-70); Platelet Count 192 K/mm3 (150-450); RBC Distribution Width CV 12.4 % (11.6-14.6); RBC Distribution Width SD 40.3 fl (35.1-43.9); Red Blood Count 4.54 M/mm3 (4.6-6.2); White Blood Count 6.1 K/mm3 (4.4-11.0)
== END | disposition home or self-care (01) ==
LOC: OLS.SANC 04:00
PROVIDERS: Referring Provider Internal Medicine; Visit Provider Internal Medicine
DX: F20.9 Schizophrenia, unspecified (principal); Z79.899 Other long term (current) drug therapy
CPT/HCPCS: 36415; 85025

== ENCOUNTER → 2021-08-09 | Outpatient (REF) | payer MEDICAID, SELFPAY ==
[2021-08-09 09:04] LABS: Absolute Lymphocyte Count 1.78 X10^3/uL (0.83-4.51); Basophil# 0.04 X10^3/uL; Basophil% 0.5 % (0-1); Eosinophil# 0.01 X10^3/uL; Eosinophils% 0.1 % (0-5); Hematocrit 39.9 % (40-54); Hemoglobin 13.5 g/dL (13.0-16.5); Lymphocyte # 1.78 X10^3/ul (0.83-4.51); Lymphocyte % 21.2 % (19-41); Mean Corp Hgb Conc 33.8 g/dL (32-36); Mean Corpuscular Hgb 30.9 pg (27.0-32.0); Mean Corpuscular Volume 91.3 fL (80-94); Mean Platelet Vol. 11.1 fl (6.2-12.0); Monocyte# 0.55 X10^3/uL; Monocyte% 6.5 % (0-10); NRBC Flagged by Analyzer 0 % (0-5); Neutrophil % 71.3 % (47-70); Platelet Count 177 K/mm3 (150-450); RBC Distribution Width CV 12.5 % (11.6-14.6); RBC Distribution Width SD 41.4 fl (35.1-43.9); Red Blood Count 4.37 M/mm3 (4.6-6.2); White Blood Count 8.4 K/mm3 (4.4-11.0)
== END | disposition home or self-care (01) ==
LOC: OLS.SANC 04:00
PROVIDERS: Referring Provider Internal Medicine; Visit Provider Internal Medicine
DX: Z51.81 Encounter for therapeutic drug level monitoring (principal)
CPT/HCPCS: 36415; 85025

== ENCOUNTER → 2021-08-16 | Outpatient (REF) | payer MEDICAID, SELFPAY ==
[2021-08-16 08:43] LABS: Absolute Lymphocyte Count 1.71 X10^3/uL (0.83-4.51); Absolute Neutrophil Count 8.6 X10^3/uL (2.0-7.7); Basophil# 0.03 X10^3/uL; Basophil% 0.3 % (0-1); Eosinophil# 0.02 X10^3/uL; Eosinophils% 0.2 % (0-5); Hematocrit 40.6 % (40-54); Hemoglobin 13.4 g/dL (13.0-16.5); Lymphocyte # 1.71 X10^3/ul (0.83-4.51); Lymphocyte % 15.2 % (19-41); Mean Corpuscular Hgb 30.3 pg (27.0-32.0); Mean Corpuscular Volume 91.9 fL (80-94); Monocyte% 7.1 % (0-10); NRBC Flagged by Analyzer 0 % (0-5); Neutrophil # 8.63 X10^3/uL (2.7-7.7); Neutrophil % 76.8 % (47-70); Platelet Count 187 K/mm3 (150-450); RBC Distribution Width CV 12.7 % (11.6-14.6); Red Blood Count 4.42 M/mm3 (4.6-6.2); White Blood Count 11.2 K/mm3 (4.4-11.0)
== END | disposition home or self-care (01) ==
LOC: OLS.SANC 05:00
PROVIDERS: Visit Provider Internal Medicine
DX: Z51.81 Encounter for therapeutic drug level monitoring (principal)
CPT/HCPCS: 36415; 85025

== ENCOUNTER → 2021-08-18 | Outpatient (REF) | payer MEDICAID, SELFPAY ==
[2021-08-18 10:15] LABS: Bacteria 0 SEEN /hpf (None Seen); Mucous, Urine 0 SEEN /hpf (<or=2+); Red Blood Cells-Urine 0 SEEN /hpf (0-5); Squamous Epithelial Cells - UA 0 SEEN /hpf (0-5); White Blood Cells 0 SEEN /hpf (0-5)
[2021-08-18 10:40] LABS: Color, Urine Yellow (Yellow); Glucose, Dipstick Normal (Normal); Ketone-Dipstick Negative (Negative); Leukocyte Esterase-Dipstick Negative /ul (Negative); Nitrite-Dipstick Negative (Negative); Occult Blood-Urine Negative /ul (Negative); Protein-Dipstick Negative (Negative); Urine Bilirubin Dipstick Negative (Negative); Urine Clarity Clear (Clear); Urine Urobilinogen 4 mg/dl (Normal)
== END | disposition home or self-care (01) ==
LOC: OLS.SANC 02:00
PROVIDERS: Visit Provider Internal Medicine
DX: N39.0 Urinary tract infection, site not specified (principal); R35.0 Frequency of micturition
CPT/HCPCS: 81001; 87086

== ENCOUNTER → 2021-08-23 | Outpatient (REF) | payer MEDICAID, SELFPAY ==
[2021-08-23 10:13] LABS: Absolute Lymphocyte Count 1.91 X10^3/uL (0.83-4.51); Absolute Neutrophil Count 4.2 X10^3/uL (2.0-7.7); Basophil# 0.03 X10^3/uL; Basophil% 0.4 % (0-1); Eosinophil# 0.02 X10^3/uL; Eosinophils% 0.3 % (0-5); Hematocrit 41.5 % (40-54); Hemoglobin 13.7 g/dL (13.0-16.5); Lymphocyte # 1.91 X10^3/ul (0.83-4.51); Lymphocyte % 28.3 % (19-41); Mean Corpuscular Hgb 30.7 pg (27.0-32.0); Mean Platelet Vol. 10.6 fl (6.2-12.0); Monocyte# 0.55 X10^3/uL; Monocyte% 8.1 % (0-10); NRBC Flagged by Analyzer 0 % (0-5); Neutrophil % 62.3 % (47-70); Platelet Count 198 K/mm3 (150-450); RBC Distribution Width CV 12.5 % (11.6-14.6); RBC Distribution Width SD 42.4 fl (35.1-43.9); Red Blood Count 4.46 M/mm3 (4.6-6.2); White Blood Count 6.8 K/mm3 (4.4-11.0)
== END | disposition home or self-care (01) ==
LOC: OLS.SANC 05:45
PROVIDERS: Visit Provider Internal Medicine
DX: F20.9 Schizophrenia, unspecified (principal)
CPT/HCPCS: 36415; 85025

== ENCOUNTER → 2021-08-30 | Outpatient (REF) | payer MEDICAID, SELFPAY ==
[2021-08-30 10:41] LABS: Absolute Lymphocyte Count 1.44 X10^3/uL (0.83-4.51); Absolute Neutrophil Count 9.6 X10^3/uL (2.0-7.7); Basophil# 0.04 X10^3/uL; Basophil% 0.3 % (0-1); Eosinophil# 0.02 X10^3/uL; Eosinophils% 0.2 % (0-5); Hematocrit 41.9 % (40-54); Hemoglobin 13.9 g/dL (13.0-16.5); Lymphocyte # 1.44 X10^3/ul (0.83-4.51); Mean Corp Hgb Conc 33.2 g/dL (32-36); Mean Corpuscular Hgb 30.8 pg (27.0-32.0); Mean Corpuscular Volume 92.7 fL (80-94); Mean Platelet Vol. 11.3 fl (6.2-12.0); Monocyte% 6.7 % (0-10); NRBC Flagged by Analyzer 0 % (0-5); Neutrophil # 9.62 X10^3/uL (2.7-7.7); Neutrophil % 80.4 % (47-70); Platelet Count 200 K/mm3 (150-450); RBC Distribution Width CV 12.6 % (11.6-14.6); RBC Distribution Width SD 42.6 fl (35.1-43.9); Red Blood Count 4.52 M/mm3 (4.6-6.2)
== END | disposition home or self-care (01) ==
LOC: OLS.SANC 05:00
PROVIDERS: PCP Internal Medicine; Referring Provider Internal Medicine; Visit Provider Internal Medicine
DX: Z79.899 Other long term (current) drug therapy (principal)
CPT/HCPCS: 36415; 85025

== ENCOUNTER → 2021-09-06 | Outpatient (REF) | payer MEDICAID, SELFPAY ==
[2021-09-06 09:07] LABS: Absolute Lymphocyte Count 1.86 X10^3/uL (0.83-4.51); Absolute Neutrophil Count 4.4 X10^3/uL (2.0-7.7); Basophil# 0.05 X10^3/uL; Basophil% 0.7 % (0-1); Eosinophil# 0.02 X10^3/uL; Eosinophils% 0.3 % (0-5); Hematocrit 41.9 % (40-54); Hemoglobin 13.8 g/dL (13.0-16.5); Lymphocyte # 1.86 X10^3/ul (0.83-4.51); Lymphocyte % 26.5 % (19-41); Mean Corp Hgb Conc 32.9 g/dL (32-36); Mean Corpuscular Hgb 30.6 pg (27.0-32.0); Mean Corpuscular Volume 92.9 fL (80-94); Mean Platelet Vol. 10.7 fl (6.2-12.0); Monocyte# 0.67 X10^3/uL; Monocyte% 9.5 % (0-10); NRBC Flagged by Analyzer 0 % (0-5); Neutrophil # 4.39 X10^3/uL (2.7-7.7); Neutrophil % 62.6 % (47-70); Platelet Count 189 K/mm3 (150-450); RBC Distribution Width CV 12.7 % (11.6-14.6); Red Blood Count 4.51 M/mm3 (4.6-6.2)
== END | disposition home or self-care (01) ==
LOC: OLS.SANC 05:00
PROVIDERS: Visit Provider Internal Medicine
DX: F20.9 Schizophrenia, unspecified (principal)
CPT/HCPCS: 36415; 85025

== ENCOUNTER → 2021-09-13 | Outpatient (REF) | payer MEDICAID, SELFPAY ==
[2021-09-13 09:55] LABS: Absolute Lymphocyte Count 1.85 X10^3/uL (0.83-4.51); Absolute Neutrophil Count 4.3 X10^3/uL (2.0-7.7); Basophil# 0.04 X10^3/uL; Basophil% 0.6 % (0-1); Eosinophil# 0.02 X10^3/uL; Eosinophils% 0.3 % (0-5); Hematocrit 43.3 % (40-54); Hemoglobin 14.2 g/dL (13.0-16.5); Lymphocyte # 1.85 X10^3/ul (0.83-4.51); Lymphocyte % 27.5 % (19-41); Mean Corp Hgb Conc 32.8 g/dL (32-36); Mean Corpuscular Hgb 30.7 pg (27.0-32.0); Mean Corpuscular Volume 93.5 fL (80-94); Monocyte# 0.55 X10^3/uL; Monocyte% 8.2 % (0-10); NRBC Flagged by Analyzer 0 % (0-5); Neutrophil # 4.25 X10^3/uL (2.7-7.7); Neutrophil % 63.1 % (47-70); Platelet Count 188 K/mm3 (150-450); RBC Distribution Width CV 12.6 % (11.6-14.6); Red Blood Count 4.63 M/mm3 (4.6-6.2); White Blood Count 6.7 K/mm3 (4.4-11.0)
== END | disposition home or self-care (01) ==
LOC: OLS.SANC 04:00
PROVIDERS: Referring Provider Internal Medicine; Visit Provider Internal Medicine
DX: Z79.899 Other long term (current) drug therapy (principal)
CPT/HCPCS: 36415; 85025

== ENCOUNTER → 2021-09-20 | Outpatient (REF) | payer MEDICAID, SELFPAY ==
[2021-09-20 09:30] LABS: Absolute Lymphocyte Count 1.79 X10^3/uL (0.83-4.51); Absolute Neutrophil Count 4.1 X10^3/uL (2.0-7.7); Basophil# 0.03 X10^3/uL; Basophil% 0.4 % (0-1); Eosinophil# 0.02 X10^3/uL; Eosinophils% 0.3 % (0-5); Hematocrit 40.2 % (40-54); Hemoglobin 13.6 g/dL (13.0-16.5); Lymphocyte # 1.79 X10^3/ul (0.83-4.51); Lymphocyte % 26.8 % (19-41); Mean Corp Hgb Conc 33.8 g/dL (32-36); Mean Corpuscular Hgb 31.5 pg (27.0-32.0); Mean Corpuscular Volume 93.1 fL (80-94); Mean Platelet Vol. 10.7 fl (6.2-12.0); Monocyte# 0.72 X10^3/uL; Monocyte% 10.8 % (0-10); NRBC Flagged by Analyzer 0 % (0-5); Neutrophil % 61.3 % (47-70); Platelet Count 170 K/mm3 (150-450); RBC Distribution Width CV 12.6 % (11.6-14.6); Red Blood Count 4.32 M/mm3 (4.6-6.2); White Blood Count 6.7 K/mm3 (4.4-11.0)
== END | disposition home or self-care (01) ==
LOC: OLS.SANC 05:00
PROVIDERS: Visit Provider Internal Medicine
DX: Z79.899 Other long term (current) drug therapy (principal)
CPT/HCPCS: 36415; 85025

== ENCOUNTER → 2021-09-28 | Outpatient (REF) | payer MEDICAID, SELFPAY ==
[2021-09-28 10:38] LABS: Absolute Neutrophil Count 4.3 X10^3/uL (2.0-7.7); Basophil# 0.03 X10^3/uL; Basophil% 0.4 % (0-1); Eosinophil# 0.02 X10^3/uL; Eosinophils% 0.3 % (0-5); Hematocrit 39.6 % (40-54); Hemoglobin 13.3 g/dL (13.0-16.5); Lymphocyte % 29.3 % (19-41); Mean Corp Hgb Conc 33.6 g/dL (32-36); Mean Corpuscular Hgb 30.6 pg (27.0-32.0); Mean Corpuscular Volume 91.2 fL (80-94); Mean Platelet Vol. 10.7 fl (6.2-12.0); Monocyte% 9.8 % (0-10); NRBC Flagged by Analyzer 0 % (0-5); Neutrophil % 59.9 % (47-70); Platelet Count 181 K/mm3 (150-450); RBC Distribution Width CV 12.6 % (11.6-14.6); RBC Distribution Width SD 41.8 fl (35.1-43.9); Red Blood Count 4.34 M/mm3 (4.6-6.2); White Blood Count 7.2 K/mm3 (4.4-11.0)
== END | disposition home or self-care (01) ==
LOC: OLS.SANC 05:00
PROVIDERS: Visit Provider Internal Medicine
DX: Z79.899 Other long term (current) drug therapy (principal)
CPT/HCPCS: 36415; 85025

== ENCOUNTER → 2021-10-04 05:00 | Outpatient (REF) | payer MEDICAID, SELFPAY ==
[2021-10-04 10:44] LABS: Absolute Lymphocyte Count 1.97 X10^3/uL (0.83-4.51); Basophil# 0.04 X10^3/uL; Basophil% 0.5 % (0-1); Eosinophil# 0.01 X10^3/uL; Eosinophils% 0.1 % (0-5); Hematocrit 41.3 % (40-54); Hemoglobin 13.9 g/dL (13.0-16.5); Lymphocyte # 1.97 X10^3/ul (0.83-4.51); Lymphocyte % 25.6 % (19-41); Mean Corp Hgb Conc 33.7 g/dL (32-36); Mean Corpuscular Hgb 30.8 pg (27.0-32.0); Mean Corpuscular Volume 91.4 fL (80-94); Monocyte# 0.69 X10^3/uL; NRBC Flagged by Analyzer 0 % (0-5); Neutrophil # 4.95 X10^3/uL (2.7-7.7); Neutrophil % 64.4 % (47-70); Platelet Count 179 K/mm3 (150-450); RBC Distribution Width CV 12.8 % (11.6-14.6); RBC Distribution Width SD 42.2 fl (35.1-43.9); Red Blood Count 4.52 M/mm3 (4.6-6.2); White Blood Count 7.7 K/mm3 (4.4-11.0)
== END ==
LOC: OLS.SANC 05:00
PROVIDERS: Visit Provider Internal Medicine
DX: F25.9 Schizoaffective disorder, unspecified (principal)
CPT/HCPCS: 36415; 85025

== ENCOUNTER → 2021-10-11 05:00 | Outpatient (REF) | payer MEDICAID, SELFPAY ==
[2021-10-11 08:43] LABS: Absolute Lymphocyte Count 1.66 X10^3/uL (0.83-4.51); Absolute Neutrophil Count 5.9 X10^3/uL (2.0-7.7); Basophil# 0.04 X10^3/uL; Basophil% 0.5 % (0-1); Eosinophil# 0.01 X10^3/uL; Eosinophils% 0.1 % (0-5); Hematocrit 42.8 % (40-54); Hemoglobin 14.1 g/dL (13.0-16.5); Lymphocyte # 1.66 X10^3/ul (0.83-4.51); Mean Corp Hgb Conc 32.9 g/dL (32-36); Mean Corpuscular Hgb 30.3 pg (27.0-32.0); Mean Corpuscular Volume 91.8 fL (80-94); Mean Platelet Vol. 10.7 fl (6.2-12.0); Monocyte# 0.68 X10^3/uL; Monocyte% 8.2 % (0-10); NRBC Flagged by Analyzer 0 % (0-5); Neutrophil # 5.89 X10^3/uL (2.7-7.7); Neutrophil % 70.8 % (47-70); Platelet Count 193 K/mm3 (150-450); RBC Distribution Width CV 12.8 % (11.6-14.6); RBC Distribution Width SD 42.8 fl (35.1-43.9); Red Blood Count 4.66 M/mm3 (4.6-6.2); White Blood Count 8.3 K/mm3 (4.4-11.0)
== END ==
LOC: OLS.SANC 05:00
PROVIDERS: Visit Provider Internal Medicine
DX: Z79.899 Other long term (current) drug therapy (principal)
CPT/HCPCS: 36415; 85025

== ENCOUNTER → 2021-10-18 04:00 | Outpatient (REF) | payer MEDICAID, SELFPAY ==
[2021-10-18 09:26] LABS: Absolute Lymphocyte Count 1.66 X10^3/uL (0.83-4.51); Absolute Neutrophil Count 4.3 X10^3/uL (2.0-7.7); Basophil# 0.03 X10^3/uL; Basophil% 0.5 % (0-1); Eosinophil# 0.01 X10^3/uL; Eosinophils% 0.2 % (0-5); Hematocrit 41.9 % (40-54); Hemoglobin 14.1 g/dL (13.0-16.5); Lymphocyte # 1.66 X10^3/ul (0.83-4.51); Lymphocyte % 25.2 % (19-41); Mean Corp Hgb Conc 33.7 g/dL (32-36); Mean Corpuscular Hgb 30.9 pg (27.0-32.0); Mean Corpuscular Volume 91.7 fL (80-94); Mean Platelet Vol. 10.6 fl (6.2-12.0); Monocyte# 0.58 X10^3/uL; Monocyte% 8.8 % (0-10); NRBC Flagged by Analyzer 0 % (0-5); Neutrophil # 4.28 X10^3/uL (2.7-7.7); Platelet Count 185 K/mm3 (150-450); RBC Distribution Width CV 12.5 % (11.6-14.6); RBC Distribution Width SD 41.6 fl (35.1-43.9); Red Blood Count 4.57 M/mm3 (4.6-6.2); White Blood Count 6.6 K/mm3 (4.4-11.0)
== END ==
LOC: OLS.SANC 04:00
PROVIDERS: Referring Provider Internal Medicine; Visit Provider Internal Medicine
DX: F25.9 Schizoaffective disorder, unspecified (principal)
CPT/HCPCS: 36415; 85025

== ENCOUNTER → 2021-10-25 04:00 | Outpatient (REF) | payer MEDICAID, SELFPAY ==
[2021-10-25 07:35] LABS: Absolute Lymphocyte Count 2.05 X10^3/uL (0.83-4.51); Absolute Neutrophil Count 4.2 X10^3/uL (2.0-7.7); Basophil# 0.03 X10^3/uL; Basophil% 0.4 % (0-1); Eosinophil# 0.02 X10^3/uL; Eosinophils% 0.3 % (0-5); Hematocrit 41.5 % (40-54); Hemoglobin 13.9 g/dL (13.0-16.5); Lymphocyte # 2.05 X10^3/ul (0.83-4.51); Lymphocyte % 30.1 % (19-41); Mean Corp Hgb Conc 33.5 g/dL (32-36); Mean Corpuscular Hgb 30.5 pg (27.0-32.0); Mean Platelet Vol. 10.6 fl (6.2-12.0); Monocyte% 7.3 % (0-10); NRBC Flagged by Analyzer 0 % (0-5); Neutrophil # 4.18 X10^3/uL (2.7-7.7); Neutrophil % 61.3 % (47-70); Platelet Count 191 K/mm3 (150-450); RBC Distribution Width CV 12.6 % (11.6-14.6); RBC Distribution Width SD 41.7 fl (35.1-43.9); Red Blood Count 4.56 M/mm3 (4.6-6.2); White Blood Count 6.8 K/mm3 (4.4-11.0)
== END ==
LOC: OLS.SANC 04:00
PROVIDERS: Referring Provider Internal Medicine; Visit Provider Internal Medicine
DX: Z79.899 Other long term (current) drug therapy (principal)
CPT/HCPCS: 36415; 85025

== ENCOUNTER → 2021-11-08 | Outpatient (REF) | payer MEDICAID, SELFPAY ==
[2021-11-08 08:16] LABS: Absolute Lymphocyte Count 1.97 X10^3/uL (0.83-4.51); Absolute Neutrophil Count 5.1 X10^3/uL (2.0-7.7); Basophil# 0.02 X10^3/uL; Basophil% 0.3 % (0-1); Eosinophil# 0.02 X10^3/uL; Eosinophils% 0.3 % (0-5); Hemoglobin 14.2 g/dL (13.0-16.5); Lymphocyte # 1.97 X10^3/ul (0.83-4.51); Lymphocyte % 25.2 % (19-41); Mean Corp Hgb Conc 33.8 g/dL (32-36); Mean Corpuscular Hgb 31.3 pg (27.0-32.0); Mean Corpuscular Volume 92.7 fL (80-94); Mean Platelet Vol. 10.9 fl (6.2-12.0); Monocyte# 0.73 X10^3/uL; Monocyte% 9.3 % (0-10); NRBC Flagged by Analyzer 0 % (0-5); Neutrophil # 5.05 X10^3/uL (2.7-7.7); Neutrophil % 64.6 % (47-70); Platelet Count 207 K/mm3 (150-450); RBC Distribution Width CV 12.5 % (11.6-14.6); RBC Distribution Width SD 42.3 fl (35.1-43.9); Red Blood Count 4.53 M/mm3 (4.6-6.2); White Blood Count 7.8 K/mm3 (4.4-11.0)
== END | disposition home or self-care (01) ==
LOC: OLS.SANC 05:00
PROVIDERS: Visit Provider Internal Medicine
DX: Z79.899 Other long term (current) drug therapy (principal)
CPT/HCPCS: 36415; 85025

== ENCOUNTER → 2021-11-15 | Outpatient (REF) | payer MEDICAID, SELFPAY ==
[2021-11-15 08:36] LABS: Absolute Lymphocyte Count 2.09 X10^3/uL (0.83-4.51); Absolute Neutrophil Count 4.2 X10^3/uL (2.0-7.7); Basophil# 0.04 X10^3/uL; Basophil% 0.6 % (0-1); Eosinophil# 0.03 X10^3/uL; Eosinophils% 0.4 % (0-5); Hematocrit 43.4 % (40-54); Hemoglobin 14.6 g/dL (13.0-16.5); Lymphocyte # 2.09 X10^3/ul (0.83-4.51); Lymphocyte % 29.4 % (19-41); Mean Corp Hgb Conc 33.6 g/dL (32-36); Mean Corpuscular Hgb 30.9 pg (27.0-32.0); Mean Corpuscular Volume 91.9 fL (80-94); Mean Platelet Vol. 10.7 fl (6.2-12.0); Monocyte# 0.72 X10^3/uL; Monocyte% 10.1 % (0-10); NRBC Flagged by Analyzer 0 % (0-5); Neutrophil % 59.1 % (47-70); Platelet Count 191 K/mm3 (150-450); RBC Distribution Width CV 12.4 % (11.6-14.6); RBC Distribution Width SD 41.9 fl (35.1-43.9); Red Blood Count 4.72 M/mm3 (4.6-6.2); White Blood Count 7.1 K/mm3 (4.4-11.0)
== END | disposition home or self-care (01) ==
LOC: OLS.SANC 04:00
PROVIDERS: Referring Provider Internal Medicine; Visit Provider Internal Medicine
DX: F20.9 Schizophrenia, unspecified (principal)
CPT/HCPCS: 36415; 85025

== ENCOUNTER → 2021-11-22 | Outpatient (REF) | payer MEDICAID, SELFPAY ==
[2021-11-22 09:11] LABS: Absolute Lymphocyte Count 2.25 X10^3/uL (0.83-4.51); Absolute Neutrophil Count 5.1 X10^3/uL (2.0-7.7); Basophil# 0.03 X10^3/uL; Basophil% 0.4 % (0-1); Eosinophil# 0.03 X10^3/uL; Eosinophils% 0.4 % (0-5); Hematocrit 41.2 % (40-54); Hemoglobin 13.5 g/dL (13.0-16.5); Lymphocyte # 2.25 X10^3/ul (0.83-4.51); Lymphocyte % 27.2 % (19-41); Mean Corp Hgb Conc 32.8 g/dL (32-36); Mean Corpuscular Hgb 30.2 pg (27.0-32.0); Mean Corpuscular Volume 92.2 fL (80-94); Mean Platelet Vol. 11.1 fl (6.2-12.0); Monocyte# 0.82 X10^3/uL; Monocyte% 9.9 % (0-10); NRBC Flagged by Analyzer 0 % (0-5); Neutrophil % 61.7 % (47-70); Platelet Count 190 K/mm3 (150-450); RBC Distribution Width CV 12.6 % (11.6-14.6); RBC Distribution Width SD 42.3 fl (35.1-43.9); Red Blood Count 4.47 M/mm3 (4.6-6.2); White Blood Count 8.3 K/mm3 (4.4-11.0)
== END | disposition home or self-care (01) ==
LOC: OLS.SANC 05:00
PROVIDERS: Visit Provider Internal Medicine
DX: Z79.899 Other long term (current) drug therapy (principal)
CPT/HCPCS: 36415; 85025

== ENCOUNTER → 2021-11-29 | Outpatient (REF) | payer MEDICAID, SELFPAY ==
[2021-11-29 10:26] LABS: Absolute Neutrophil Count 4.4 X10^3/uL (2.0-7.7); Basophil# 0.03 X10^3/uL; Basophil% 0.4 % (0-1); Eosinophil# 0.02 X10^3/uL; Eosinophils% 0.3 % (0-5); Hematocrit 43.4 % (40-54); Hemoglobin 14.6 g/dL (13.0-16.5); Lymphocyte % 28.6 % (19-41); Mean Corp Hgb Conc 33.6 g/dL (32-36); Mean Corpuscular Hgb 30.9 pg (27.0-32.0); Mean Corpuscular Volume 91.9 fL (80-94); Mean Platelet Vol. 11.1 fl (6.2-12.0); Monocyte# 0.53 X10^3/uL; Monocyte% 7.6 % (0-10); NRBC Flagged by Analyzer 0 % (0-5); Neutrophil % 62.8 % (47-70); Platelet Count 205 K/mm3 (150-450); RBC Distribution Width CV 12.4 % (11.6-14.6); RBC Distribution Width SD 41.8 fl (35.1-43.9); Red Blood Count 4.72 M/mm3 (4.6-6.2)
== END | disposition home or self-care (01) ==
LOC: OLS.SANC 04:00
PROVIDERS: Referring Provider Internal Medicine; Visit Provider Internal Medicine
DX: Z79.899 Other long term (current) drug therapy (principal)
CPT/HCPCS: 36415; 85025

== ENCOUNTER → 2021-12-06 | Outpatient (REF) | payer MEDICAID, SELFPAY ==
[2021-12-06 09:50] LABS: Absolute Lymphocyte Count 1.91 X10^3/uL (0.83-4.51); Absolute Neutrophil Count 4.4 X10^3/uL (2.0-7.7); Basophil# 0.03 X10^3/uL; Basophil% 0.4 % (0-1); Eosinophil# 0.02 X10^3/uL; Eosinophils% 0.3 % (0-5); Hematocrit 42.2 % (40-54); Hemoglobin 13.8 g/dL (13.0-16.5); Lymphocyte # 1.91 X10^3/ul (0.83-4.51); Lymphocyte % 27.2 % (19-41); Mean Corp Hgb Conc 32.7 g/dL (32-36); Mean Corpuscular Hgb 30.1 pg (27.0-32.0); Mean Corpuscular Volume 92.1 fL (80-94); Mean Platelet Vol. 11.1 fl (6.2-12.0); Monocyte# 0.67 X10^3/uL; Monocyte% 9.6 % (0-10); NRBC Flagged by Analyzer 0 % (0-5); Neutrophil # 4.36 X10^3/uL (2.7-7.7); Neutrophil % 62.2 % (47-70); Platelet Count 180 K/mm3 (150-450); RBC Distribution Width CV 12.6 % (11.6-14.6); RBC Distribution Width SD 42.1 fl (35.1-43.9); Red Blood Count 4.58 M/mm3 (4.6-6.2)
== END | disposition home or self-care (01) ==
LOC: OLS.SANC 05:00
PROVIDERS: Visit Provider Internal Medicine
DX: Z79.899 Other long term (current) drug therapy (principal)
CPT/HCPCS: 36415; 85025

== ENCOUNTER → 2021-12-13 | Outpatient (REF) | payer MEDICAID, SELFPAY ==
[2021-12-13 09:45] LABS: Absolute Lymphocyte Count 1.88 X10^3/uL (0.83-4.51); Absolute Neutrophil Count 4.5 X10^3/uL (2.0-7.7); Basophil# 0.04 X10^3/uL; Basophil% 0.6 % (0-1); Eosinophil# 0.02 X10^3/uL; Eosinophils% 0.3 % (0-5); Hematocrit 42.7 % (40-54); Hemoglobin 14.4 g/dL (13.0-16.5); Lymphocyte # 1.88 X10^3/ul (0.83-4.51); Lymphocyte % 26.7 % (19-41); Mean Corp Hgb Conc 33.7 g/dL (32-36); Mean Corpuscular Hgb 30.6 pg (27.0-32.0); Mean Corpuscular Volume 90.9 fL (80-94); Mean Platelet Vol. 10.9 fl (6.2-12.0); Monocyte% 8.5 % (0-10); NRBC Flagged by Analyzer 0 % (0-5); Neutrophil # 4.49 X10^3/uL (2.7-7.7); Neutrophil % 63.6 % (47-70); Platelet Count 194 K/mm3 (150-450); RBC Distribution Width CV 12.6 % (11.6-14.6); RBC Distribution Width SD 42.1 fl (35.1-43.9); White Blood Count 7.1 K/mm3 (4.4-11.0)
== END | disposition home or self-care (01) ==
LOC: OLS.SANC 05:00
PROVIDERS: Visit Provider Internal Medicine
DX: Z79.899 Other long term (current) drug therapy (principal)
CPT/HCPCS: 36415; 85025

== ENCOUNTER → 2021-12-20 | Outpatient (REF) | payer MEDICAID, SELFPAY ==
[2021-12-20 08:58] LABS: Absolute Lymphocyte Count 2.02 X10^3/uL (0.83-4.51); Absolute Neutrophil Count 3.6 X10^3/uL (2.0-7.7); Basophil# 0.01 X10^3/uL; Basophil% 0.2 % (0-1); Eosinophil# 0.02 X10^3/uL; Eosinophils% 0.3 % (0-5); Hematocrit 44.8 % (40-54); Hemoglobin 14.8 g/dL (13.0-16.5); Lymphocyte # 2.02 X10^3/ul (0.83-4.51); Lymphocyte % 32.9 % (19-41); Mean Corpuscular Hgb 30.8 pg (27.0-32.0); Mean Corpuscular Volume 93.1 fL (80-94); Mean Platelet Vol. 11.1 fl (6.2-12.0); Monocyte# 0.51 X10^3/uL; Monocyte% 8.3 % (0-10); NRBC Flagged by Analyzer 0 % (0-5); Neutrophil # 3.55 X10^3/uL (2.7-7.7); Neutrophil % 57.8 % (47-70); POSITIVE COUNT YES; RBC Distribution Width CV 12.4 % (11.6-14.6); RBC Distribution Width SD 42.4 fl (35.1-43.9); Red Blood Count 4.81 M/mm3 (4.6-6.2); White Blood Count 6.1 K/mm3 (4.4-11.0)
[2021-12-20 09:29] LABS: Differential Indicated SCAN CRITERIA MET; Platelet Estimate ADEQUATE (ADEQ)
== END | disposition home or self-care (01) ==
LOC: OLS.SANC 05:00
PROVIDERS: Visit Provider Internal Medicine
DX: Z79.899 Other long term (current) drug therapy (principal)
CPT/HCPCS: 36415; 85025

== ENCOUNTER → 2021-12-27 | Outpatient (REF) | payer MEDICAID, SELFPAY ==
[2021-12-27 09:23] LABS: Absolute Lymphocyte Count 1.79 X10^3/uL (0.83-4.51); Absolute Neutrophil Count 4.9 X10^3/uL (2.0-7.7); Basophil# 0.03 X10^3/uL; Basophil% 0.4 % (0-1); Eosinophil# 0.03 X10^3/uL; Eosinophils% 0.4 % (0-5); Hematocrit 42.4 % (40-54); Hemoglobin 14.5 g/dL (13.0-16.5); Lymphocyte # 1.79 X10^3/ul (0.83-4.51); Lymphocyte % 23.6 % (19-41); Mean Corp Hgb Conc 34.2 g/dL (32-36); Mean Corpuscular Hgb 31.1 pg (27.0-32.0); Mean Platelet Vol. 10.9 fl (6.2-12.0); Monocyte# 0.76 X10^3/uL; NRBC Flagged by Analyzer 0 % (0-5); Neutrophil # 4.94 X10^3/uL (2.7-7.7); Neutrophil % 65.2 % (47-70); Platelet Count 185 K/mm3 (150-450); RBC Distribution Width CV 12.6 % (11.6-14.6); RBC Distribution Width SD 41.2 fl (35.1-43.9); Red Blood Count 4.66 M/mm3 (4.6-6.2); White Blood Count 7.6 K/mm3 (4.4-11.0)
== END | disposition home or self-care (01) ==
LOC: OLS.SANC 04:00
PROVIDERS: Referring Provider Internal Medicine; Visit Provider Internal Medicine
DX: F20.9 Schizophrenia, unspecified (principal)
CPT/HCPCS: 36415; 85025

== ENCOUNTER → 2022-01-04 | Outpatient (REF) | payer MEDICAID, SELFPAY ==
[2022-01-04 09:51] LABS: Absolute Lymphocyte Count 1.84 X10^3/uL (0.83-4.51); Absolute Neutrophil Count 4.8 X10^3/uL (2.0-7.7); Basophil# 0.02 X10^3/uL; Basophil% 0.3 % (0-1); Eosinophil# 0.02 X10^3/uL; Eosinophils% 0.3 % (0-5); Hematocrit 42.5 % (40-54); Hemoglobin 14.2 g/dL (13.0-16.5); Lymphocyte # 1.84 X10^3/ul (0.83-4.51); Mean Corp Hgb Conc 33.4 g/dL (32-36); Mean Corpuscular Hgb 30.4 pg (27.0-32.0); Monocyte# 0.67 X10^3/uL; Monocyte% 9.1 % (0-10); NRBC Flagged by Analyzer 0 % (0-5); Neutrophil # 4.77 X10^3/uL (2.7-7.7); Neutrophil % 64.8 % (47-70); Platelet Count 184 K/mm3 (150-450); RBC Distribution Width CV 12.7 % (11.6-14.6); RBC Distribution Width SD 41.4 fl (35.1-43.9); Red Blood Count 4.67 M/mm3 (4.6-6.2); White Blood Count 7.4 K/mm3 (4.4-11.0)
== END | disposition home or self-care (01) ==
LOC: OLS.SANC 05:00
PROVIDERS: Visit Provider Internal Medicine
DX: Z79.899 Other long term (current) drug therapy (principal)
CPT/HCPCS: 36415; 85025

== ENCOUNTER → 2022-01-10 | Outpatient (REF) | payer MEDICAID, SELFPAY ==
[2022-01-10 08:26] LABS: Absolute Lymphocyte Count 2.07 X10^3/uL (0.83-4.51); Absolute Neutrophil Count 4.2 X10^3/uL (2.0-7.7); Basophil# 0.04 X10^3/uL; Basophil% 0.6 % (0-1); Eosinophil# 0.02 X10^3/uL; Eosinophils% 0.3 % (0-5); Hematocrit 47.1 % (40-54); Hemoglobin 14.8 g/dL (13.0-16.5); Lymphocyte # 2.07 X10^3/ul (0.83-4.51); Lymphocyte % 29.5 % (19-41); Mean Corp Hgb Conc 31.4 g/dL (32-36); Mean Corpuscular Hgb 30.6 pg (27.0-32.0); Mean Corpuscular Volume 97.5 fL (80-94); Mean Platelet Vol. 10.8 fl (6.2-12.0); Monocyte# 0.71 X10^3/uL; Monocyte% 10.1 % (0-10); NRBC Flagged by Analyzer 0 % (0-5); Neutrophil # 4.16 X10^3/uL (2.7-7.7); Neutrophil % 59.2 % (47-70); Platelet Count 169 K/mm3 (150-450); RBC Distribution Width CV 12.7 % (11.6-14.6); RBC Distribution Width SD 44.9 fl (35.1-43.9); Red Blood Count 4.83 M/mm3 (4.6-6.2)
== END | disposition home or self-care (01) ==
LOC: OLS.SANC 06:00
PROVIDERS: Visit Provider Internal Medicine
DX: F20.9 Schizophrenia, unspecified (principal)
CPT/HCPCS: 36415; 85025

== ENCOUNTER → 2022-01-17 | Outpatient (REF) | payer MEDICAID, SELFPAY ==
[2022-01-17 09:35] LABS: Absolute Lymphocyte Count 1.89 X10^3/uL (0.83-4.51); Absolute Neutrophil Count 4.4 X10^3/uL (2.0-7.7); Basophil# 0.03 X10^3/uL; Basophil% 0.4 % (0-1); Eosinophil# 0.02 X10^3/uL; Eosinophils% 0.3 % (0-5); Hematocrit 42.6 % (40-54); Hemoglobin 14.1 g/dL (13.0-16.5); Lymphocyte # 1.89 X10^3/ul (0.83-4.51); Mean Corp Hgb Conc 33.1 g/dL (32-36); Mean Corpuscular Hgb 30.4 pg (27.0-32.0); Mean Corpuscular Volume 91.8 fL (80-94); Mean Platelet Vol. 11.1 fl (6.2-12.0); Monocyte# 0.65 X10^3/uL; Monocyte% 9.3 % (0-10); NRBC Flagged by Analyzer 0 % (0-5); Neutrophil # 4.38 X10^3/uL (2.7-7.7); Neutrophil % 62.4 % (47-70); Platelet Count 200 K/mm3 (150-450); RBC Distribution Width CV 12.5 % (11.6-14.6); RBC Distribution Width SD 41.5 fl (35.1-43.9); Red Blood Count 4.64 M/mm3 (4.6-6.2)
== END | disposition home or self-care (01) ==
LOC: OLS.SANC 04:00
PROVIDERS: Referring Provider Internal Medicine; Visit Provider Internal Medicine
DX: Z79.899 Other long term (current) drug therapy (principal)
CPT/HCPCS: 36415; 85025

== ENCOUNTER → 2022-01-24 | Outpatient (REF) | payer MEDICAID, SELFPAY ==
[2022-01-24 08:47] LABS: Absolute Lymphocyte Count 1.82 X10^3/uL (0.83-4.51); Absolute Neutrophil Count 6.1 X10^3/uL (2.0-7.7); Basophil# 0.03 X10^3/uL; Basophil% 0.3 % (0-1); Eosinophil# 0.03 X10^3/uL; Eosinophils% 0.3 % (0-5); Hematocrit 43.6 % (40-54); Hemoglobin 14.5 g/dL (13.0-16.5); Lymphocyte # 1.82 X10^3/ul (0.83-4.51); Lymphocyte % 20.9 % (19-41); Mean Corp Hgb Conc 33.3 g/dL (32-36); Mean Corpuscular Hgb 30.6 pg (27.0-32.0); Mean Platelet Vol. 10.9 fl (6.2-12.0); Monocyte# 0.73 X10^3/uL; Monocyte% 8.4 % (0-10); NRBC Flagged by Analyzer 0 % (0-5); Neutrophil # 6.06 X10^3/uL (2.7-7.7); Neutrophil % 69.9 % (47-70); Platelet Count 192 K/mm3 (150-450); RBC Distribution Width CV 12.5 % (11.6-14.6); RBC Distribution Width SD 42.3 fl (35.1-43.9); Red Blood Count 4.74 M/mm3 (4.6-6.2); White Blood Count 8.7 K/mm3 (4.4-11.0)
== END | disposition home or self-care (01) ==
LOC: OLS.SANC 05:00
PROVIDERS: Visit Provider Internal Medicine
DX: Z79.899 Other long term (current) drug therapy (principal)
CPT/HCPCS: 36415; 85025

== ENCOUNTER → 2022-01-31 | Outpatient (REF) | payer MEDICAID, SELFPAY ==
[2022-01-31 10:17] LABS: Absolute Lymphocyte Count 2.19 X10^3/uL (0.83-4.51); Absolute Neutrophil Count 5.7 X10^3/uL (2.0-7.7); Basophil# 0.03 X10^3/uL; Basophil% 0.3 % (0-1); Eosinophil# 0.02 X10^3/uL; Eosinophils% 0.2 % (0-5); Hematocrit 44.7 % (40-54); Hemoglobin 14.9 g/dL (13.0-16.5); Lymphocyte # 2.19 X10^3/ul (0.83-4.51); Lymphocyte % 24.9 % (19-41); Mean Corp Hgb Conc 33.3 g/dL (32-36); Mean Corpuscular Volume 92.9 fL (80-94); Monocyte# 0.81 X10^3/uL; Monocyte% 9.2 % (0-10); NRBC Flagged by Analyzer 0 % (0-5); Neutrophil % 64.9 % (47-70); Platelet Count 204 K/mm3 (150-450); RBC Distribution Width CV 12.6 % (11.6-14.6); RBC Distribution Width SD 42.9 fl (35.1-43.9); Red Blood Count 4.81 M/mm3 (4.6-6.2); White Blood Count 8.8 K/mm3 (4.4-11.0)
== END | disposition home or self-care (01) ==
LOC: OLS.SANC 04:00
PROVIDERS: Referring Provider Internal Medicine; Visit Provider Internal Medicine
DX: Z79.899 Other long term (current) drug therapy (principal)
CPT/HCPCS: 36415; 85025

== ENCOUNTER → 2022-02-07 | Outpatient (REF) | payer MEDICAID, SELFPAY ==
[2022-02-07 09:12] LABS: Absolute Lymphocyte Count 1.97 X10^3/uL (0.83-4.51); Absolute Neutrophil Count 4.2 X10^3/uL (2.0-7.7); Basophil# 0.03 X10^3/uL; Basophil% 0.4 % (0-1); Eosinophil# 0.02 X10^3/uL; Eosinophils% 0.3 % (0-5); Hemoglobin 15.4 g/dL (13.0-16.5); Lymphocyte # 1.97 X10^3/ul (0.83-4.51); Lymphocyte % 29.1 % (19-41); Mean Corp Hgb Conc 34.2 g/dL (32-36); Mean Corpuscular Hgb 31.7 pg (27.0-32.0); Mean Corpuscular Volume 92.6 fL (80-94); Monocyte# 0.55 X10^3/uL; Monocyte% 8.1 % (0-10); NRBC Flagged by Analyzer 0 % (0-5); Neutrophil # 4.18 X10^3/uL (2.7-7.7); Neutrophil % 61.8 % (47-70); Platelet Count 196 K/mm3 (150-450); RBC Distribution Width CV 12.7 % (11.6-14.6); RBC Distribution Width SD 43.1 fl (35.1-43.9); Red Blood Count 4.86 M/mm3 (4.6-6.2); White Blood Count 6.8 K/mm3 (4.4-11.0)
== END | disposition home or self-care (01) ==
LOC: OLS.SANC 04:00
PROVIDERS: Referring Provider Internal Medicine; Visit Provider Internal Medicine
DX: Z79.899 Other long term (current) drug therapy (principal)
CPT/HCPCS: 36415; 85025

== ENCOUNTER → 2022-02-14 | Outpatient (REF) | payer MEDICAID, SELFPAY ==
[2022-02-14 08:27] LABS: Absolute Neutrophil Count 6.4 X10^3/uL (2.0-7.7); Basophil# 0.06 X10^3/uL; Basophil% 0.6 % (0-1); Eosinophil# 0.03 X10^3/uL; Eosinophils% 0.3 % (0-5); Hematocrit 42.7 % (40-54); Hemoglobin 14.6 g/dL (13.0-16.5); Lymphocyte % 21.6 % (19-41); Mean Corp Hgb Conc 34.2 g/dL (32-36); Mean Corpuscular Hgb 31.4 pg (27.0-32.0); Mean Corpuscular Volume 91.8 fL (80-94); Mean Platelet Vol. 11.1 fl (6.2-12.0); Monocyte% 7.6 % (0-10); NRBC Flagged by Analyzer 0 % (0-5); Neutrophil # 6.44 X10^3/uL (2.7-7.7); Neutrophil % 69.5 % (47-70); Platelet Count 187 K/mm3 (150-450); RBC Distribution Width SD 43.7 fl (35.1-43.9); Red Blood Count 4.65 M/mm3 (4.6-6.2); White Blood Count 9.3 K/mm3 (4.4-11.0)
== END | disposition home or self-care (01) ==
LOC: OLS.SANC 05:00
PROVIDERS: Visit Provider Internal Medicine
DX: Z79.899 Other long term (current) drug therapy (principal)
CPT/HCPCS: 36415; 85025

== ENCOUNTER → 2022-02-21 | Outpatient (REF) | payer MEDICAID, SELFPAY ==
[2022-02-21 07:43] LABS: Absolute Lymphocyte Count 1.93 X10^3/uL (0.83-4.51); Absolute Neutrophil Count 4.6 X10^3/uL (2.0-7.7); Basophil# 0.03 X10^3/uL; Basophil% 0.4 % (0-1); Eosinophil# 0.03 X10^3/uL; Eosinophils% 0.4 % (0-5); Hematocrit 41.5 % (40-54); Hemoglobin 14.1 g/dL (13.0-16.5); Lymphocyte # 1.93 X10^3/ul (0.83-4.51); Lymphocyte % 26.7 % (19-41); Mean Corpuscular Hgb 31.1 pg (27.0-32.0); Mean Corpuscular Volume 91.4 fL (80-94); Mean Platelet Vol. 11.1 fl (6.2-12.0); Monocyte# 0.64 X10^3/uL; Monocyte% 8.8 % (0-10); NRBC Flagged by Analyzer 0 % (0-5); Neutrophil # 4.59 X10^3/uL (2.7-7.7); Neutrophil % 63.4 % (47-70); Platelet Count 189 K/mm3 (150-450); RBC Distribution Width CV 12.6 % (11.6-14.6); RBC Distribution Width SD 41.9 fl (35.1-43.9); Red Blood Count 4.54 M/mm3 (4.6-6.2); White Blood Count 7.2 K/mm3 (4.4-11.0)
== END | disposition home or self-care (01) ==
LOC: OLS.SANC 05:00
PROVIDERS: Visit Provider Internal Medicine
DX: Z79.899 Other long term (current) drug therapy (principal)
CPT/HCPCS: 36415; 85025

== ENCOUNTER → 2022-02-28 | Outpatient (REF) | payer MEDICAID, SELFPAY ==
[2022-02-28 08:56] LABS: Absolute Lymphocyte Count 1.85 X10^3/uL (0.83-4.51); Absolute Neutrophil Count 5.3 X10^3/uL (2.0-7.7); Basophil# 0.03 X10^3/uL; Basophil% 0.4 % (0-1); Eosinophil# 0.03 X10^3/uL; Eosinophils% 0.4 % (0-5); Hematocrit 41.9 % (40-54); Hemoglobin 14.3 g/dL (13.0-16.5); Lymphocyte # 1.85 X10^3/ul (0.83-4.51); Lymphocyte % 23.8 % (19-41); Mean Corp Hgb Conc 34.1 g/dL (32-36); Mean Corpuscular Hgb 31.2 pg (27.0-32.0); Mean Corpuscular Volume 91.5 fL (80-94); Mean Platelet Vol. 10.8 fl (6.2-12.0); Monocyte# 0.56 X10^3/uL; Monocyte% 7.2 % (0-10); NRBC Flagged by Analyzer 0 % (0-5); Neutrophil # 5.28 X10^3/uL (2.7-7.7); Neutrophil % 67.8 % (47-70); Platelet Count 202 K/mm3 (150-450); RBC Distribution Width CV 12.7 % (11.6-14.6); RBC Distribution Width SD 42.2 fl (35.1-43.9); Red Blood Count 4.58 M/mm3 (4.6-6.2); White Blood Count 7.8 K/mm3 (4.4-11.0)
== END | disposition home or self-care (01) ==
LOC: OLS.SANC 05:00
PROVIDERS: Visit Provider Internal Medicine
DX: Z79.899 Other long term (current) drug therapy (principal)
CPT/HCPCS: 36415; 85025

== ENCOUNTER → 2022-03-07 | Outpatient (REF) | payer MEDICAID, SELFPAY ==
[2022-03-07 09:45] LABS: Absolute Lymphocyte Count 1.97 X10^3/uL (0.83-4.51); Absolute Neutrophil Count 4.3 X10^3/uL (2.0-7.7); Basophil# 0.04 X10^3/uL; Basophil% 0.6 % (0-1); Eosinophil# 0.03 X10^3/uL; Eosinophils% 0.4 % (0-5); Hematocrit 43.6 % (40-54); Hemoglobin 14.4 g/dL (13.0-16.5); Lymphocyte # 1.97 X10^3/ul (0.83-4.51); Lymphocyte % 28.3 % (19-41); Mean Corpuscular Hgb 30.1 pg (27.0-32.0); Mean Corpuscular Volume 91.2 fL (80-94); Mean Platelet Vol. 11.1 fl (6.2-12.0); Monocyte# 0.63 X10^3/uL; Monocyte% 9.1 % (0-10); NRBC Flagged by Analyzer 0 % (0-5); Neutrophil # 4.27 X10^3/uL (2.7-7.7); Neutrophil % 61.3 % (47-70); Platelet Count 210 K/mm3 (150-450); RBC Distribution Width CV 12.6 % (11.6-14.6); Red Blood Count 4.78 M/mm3 (4.6-6.2)
== END | disposition home or self-care (01) ==
LOC: OLS.SANC 04:00
PROVIDERS: Referring Provider Internal Medicine; Visit Provider Internal Medicine
DX: F20.9 Schizophrenia, unspecified (principal)
CPT/HCPCS: 36415; 85025

== ENCOUNTER → 2022-03-14 | Outpatient (REF) | payer MEDICAID, SELFPAY ==
[2022-03-14 07:58] LABS: Absolute Lymphocyte Count 2.18 X10^3/uL (0.83-4.51); Absolute Neutrophil Count 4.3 X10^3/uL (2.0-7.7); Basophil# 0.03 X10^3/uL; Basophil% 0.4 % (0-1); Eosinophil# 0.04 X10^3/uL; Eosinophils% 0.6 % (0-5); Hematocrit 43.9 % (40-54); Hemoglobin 14.5 g/dL (13.0-16.5); Lymphocyte # 2.18 X10^3/ul (0.83-4.51); Lymphocyte % 30.1 % (19-41); Mean Corpuscular Hgb 30.2 pg (27.0-32.0); Mean Corpuscular Volume 91.5 fL (80-94); Monocyte# 0.69 X10^3/uL; Monocyte% 9.5 % (0-10); NRBC Flagged by Analyzer 0 % (0-5); Neutrophil # 4.27 X10^3/uL (2.7-7.7); Neutrophil % 58.8 % (47-70); Platelet Count 201 K/mm3 (150-450); RBC Distribution Width CV 12.4 % (11.6-14.6); RBC Distribution Width SD 41.1 fl (35.1-43.9); White Blood Count 7.3 K/mm3 (4.4-11.0)
== END | disposition home or self-care (01) ==
LOC: OLS.SANC 05:00
PROVIDERS: Visit Provider Internal Medicine
DX: Z79.899 Other long term (current) drug therapy (principal)
CPT/HCPCS: 36415; 85025

== ENCOUNTER → 2022-03-21 | Outpatient (REF) | payer MEDICAID, SELFPAY ==
[2022-03-21 08:57] LABS: Absolute Lymphocyte Count 1.98 X10^3/uL (0.83-4.51); Absolute Neutrophil Count 4.9 X10^3/uL (2.0-7.7); Basophil# 0.04 X10^3/uL; Basophil% 0.5 % (0-1); Eosinophil# 0.04 X10^3/uL; Eosinophils% 0.5 % (0-5); Hematocrit 43.7 % (40-54); Hemoglobin 14.9 g/dL (13.0-16.5); Lymphocyte # 1.98 X10^3/ul (0.83-4.51); Lymphocyte % 25.7 % (19-41); Mean Corp Hgb Conc 34.1 g/dL (32-36); Mean Corpuscular Hgb 30.9 pg (27.0-32.0); Mean Corpuscular Volume 90.7 fL (80-94); Mean Platelet Vol. 10.8 fl (6.2-12.0); Monocyte# 0.72 X10^3/uL; Monocyte% 9.3 % (0-10); NRBC Flagged by Analyzer 0 % (0-5); Neutrophil % 63.6 % (47-70); Platelet Count 186 K/mm3 (150-450); RBC Distribution Width CV 12.4 % (11.6-14.6); RBC Distribution Width SD 40.8 fl (35.1-43.9); Red Blood Count 4.82 M/mm3 (4.6-6.2); White Blood Count 7.7 K/mm3 (4.4-11.0)
== END | disposition home or self-care (01) ==
LOC: OLS.SANC 05:00
PROVIDERS: Visit Provider Internal Medicine
DX: F20.9 Schizophrenia, unspecified (principal)
CPT/HCPCS: 36415; 85025

== ENCOUNTER → 2022-03-28 | Outpatient (REF) | payer MEDICAID, SELFPAY ==
[2022-03-28 07:57] LABS: Absolute Lymphocyte Count 2.25 X10^3/uL (0.83-4.51); Absolute Neutrophil Count 4.8 X10^3/uL (2.0-7.7); Basophil# 0.05 X10^3/uL; Basophil% 0.6 % (0-1); Eosinophil# 0.04 X10^3/uL; Eosinophils% 0.5 % (0-5); Hematocrit 43.2 % (40-54); Hemoglobin 14.4 g/dL (13.0-16.5); Lymphocyte # 2.25 X10^3/ul (0.83-4.51); Lymphocyte % 28.1 % (19-41); Mean Corp Hgb Conc 33.3 g/dL (32-36); Mean Corpuscular Hgb 30.7 pg (27.0-32.0); Mean Corpuscular Volume 92.1 fL (80-94); Mean Platelet Vol. 10.8 fl (6.2-12.0); Monocyte# 0.78 X10^3/uL; Monocyte% 9.8 % (0-10); NRBC Flagged by Analyzer 0 % (0-5); Neutrophil # 4.84 X10^3/uL (2.7-7.7); Neutrophil % 60.5 % (47-70); Platelet Count 207 K/mm3 (150-450); RBC Distribution Width CV 12.5 % (11.6-14.6); Red Blood Count 4.69 M/mm3 (4.6-6.2)
== END | disposition home or self-care (01) ==
LOC: OLS.SANC 05:00
PROVIDERS: Visit Provider Internal Medicine
DX: Z79.899 Other long term (current) drug therapy (principal)
CPT/HCPCS: 36415; 85025

== ENCOUNTER → 2022-04-04 | Outpatient (REF) | payer MEDICAID, SELFPAY ==
[2022-04-04 10:31] LABS: Absolute Lymphocyte Count 1.99 X10^3/uL (0.83-4.51); Absolute Neutrophil Count 4.9 X10^3/uL (2.0-7.7); Basophil# 0.03 X10^3/uL; Basophil% 0.4 % (0-1); Eosinophil# 0.03 X10^3/uL; Eosinophils% 0.4 % (0-5); Hemoglobin 14.1 g/dL (13.0-16.5); Lymphocyte # 1.99 X10^3/ul (0.83-4.51); Lymphocyte % 25.9 % (19-41); Mean Corp Hgb Conc 33.6 g/dL (32-36); Mean Corpuscular Hgb 30.5 pg (27.0-32.0); Mean Corpuscular Volume 90.7 fL (80-94); Mean Platelet Vol. 11.3 fl (6.2-12.0); Monocyte# 0.66 X10^3/uL; Monocyte% 8.6 % (0-10); NRBC Flagged by Analyzer 0 % (0-5); Neutrophil # 4.93 X10^3/uL (2.7-7.7); Neutrophil % 64.2 % (47-70); Platelet Count 174 K/mm3 (150-450); RBC Distribution Width CV 12.4 % (11.6-14.6); RBC Distribution Width SD 41.3 fl (35.1-43.9); Red Blood Count 4.63 M/mm3 (4.6-6.2); White Blood Count 7.7 K/mm3 (4.4-11.0)
[2022-04-04 10:42] LABS: Cholesterol 158 mg/dL (200); High Density Lipoprotein 26 mg/dL; Triglycerides 259 mg/dL; Very Low Density Lipoprotein 52 mg/dL (5-40)
== END | disposition home or self-care (01) ==
LOC: OLS.SANC 05:00
PROVIDERS: Visit Provider Internal Medicine
DX: F20.9 Schizophrenia, unspecified (principal)
CPT/HCPCS: 36415; 80061; 85025

== ENCOUNTER → 2022-04-11 | Outpatient (REF) | payer MEDICAID, SELFPAY ==
[2022-04-11 10:04] LABS: Absolute Lymphocyte Count 2.16 X10^3/uL (0.83-4.51); Absolute Neutrophil Count 4.2 X10^3/uL (2.0-7.7); Basophil# 0.03 X10^3/uL; Basophil% 0.4 % (0-1); Eosinophil# 0.03 X10^3/uL; Eosinophils% 0.4 % (0-5); Hematocrit 42.1 % (40-54); Hemoglobin 13.9 g/dL (13.0-16.5); Lymphocyte # 2.16 X10^3/ul (0.83-4.51); Lymphocyte % 31.2 % (19-41); Mean Corpuscular Hgb 30.3 pg (27.0-32.0); Mean Corpuscular Volume 91.9 fL (80-94); Mean Platelet Vol. 11.4 fl (6.2-12.0); Monocyte# 0.45 X10^3/uL; Monocyte% 6.5 % (0-10); NRBC Flagged by Analyzer 0 % (0-5); Neutrophil # 4.22 X10^3/uL (2.7-7.7); Neutrophil % 61.1 % (47-70); Platelet Count 191 K/mm3 (150-450); RBC Distribution Width CV 12.3 % (11.6-14.6); RBC Distribution Width SD 41.5 fl (35.1-43.9); Red Blood Count 4.58 M/mm3 (4.6-6.2); White Blood Count 6.9 K/mm3 (4.4-11.0)
== END | disposition home or self-care (01) ==
LOC: OLS.SANC 05:00
PROVIDERS: Visit Provider Internal Medicine
DX: Z79.899 Other long term (current) drug therapy (principal)
CPT/HCPCS: 36415; 85025

== ENCOUNTER → 2022-04-14 | Outpatient (REF) | payer MEDICAID, SELFPAY ==
[2022-04-14 09:44] LABS: AST(SGOT) 12 U/L (15-37); Alanine Aminotransfer ALT/SGPT 26 U/L (16-61); Albumin, Serum 3.1 g/dL (3.2-5.0); Alkaline Phosphatase 117 U/L (45-117); Bilirubin, Direct 0.12 mg/dL (0.00-0.30); Globulin 3.2 g/dL (2.2-4.2); Protein, Total 6.3 g/dL (6.4-8.2)
== END | disposition home or self-care (01) ==
LOC: OLS.SANC 05:00
PROVIDERS: Visit Provider Internal Medicine
DX: Z79.899 Other long term (current) drug therapy (principal)
CPT/HCPCS: 36415; 80076

== ENCOUNTER → 2022-04-18 | Outpatient (REF) | payer MEDICAID, SELFPAY ==
[2022-04-18 08:46] LABS: Absolute Lymphocyte Count 2.03 X10^3/uL (0.83-4.51); Absolute Neutrophil Count 4.5 X10^3/uL (2.0-7.7); Basophil# 0.04 X10^3/uL; Basophil% 0.6 % (0-1); Eosinophil# 0.04 X10^3/uL; Eosinophils% 0.6 % (0-5); Hematocrit 42.4 % (40-54); Hemoglobin 14.5 g/dL (13.0-16.5); Lymphocyte # 2.03 X10^3/ul (0.83-4.51); Lymphocyte % 28.2 % (19-41); Mean Corp Hgb Conc 34.2 g/dL (32-36); Mean Corpuscular Volume 90.8 fL (80-94); Mean Platelet Vol. 11.2 fl (6.2-12.0); Monocyte# 0.59 X10^3/uL; Monocyte% 8.2 % (0-10); NRBC Flagged by Analyzer 0 % (0-5); Neutrophil # 4.47 X10^3/uL (2.7-7.7); Platelet Count 196 K/mm3 (150-450); RBC Distribution Width CV 12.5 % (11.6-14.6); RBC Distribution Width SD 41.1 fl (35.1-43.9); Red Blood Count 4.67 M/mm3 (4.6-6.2); White Blood Count 7.2 K/mm3 (4.4-11.0)
== END | disposition home or self-care (01) ==
LOC: OLS.SANC 05:00
PROVIDERS: Visit Provider Internal Medicine
DX: Z79.899 Other long term (current) drug therapy (principal)
CPT/HCPCS: 36415; 85025

== ENCOUNTER → 2022-04-26 | Outpatient (REF) | payer MEDICAID, SELFPAY ==
[2022-04-26 10:22] LABS: Absolute Lymphocyte Count 2.79 X10^3/uL (0.83-4.51); Absolute Neutrophil Count 5.9 X10^3/uL (2.0-7.7); Basophil# 0.04 X10^3/uL; Basophil% 0.4 % (0-1); Eosinophil# 0.04 X10^3/uL; Eosinophils% 0.4 % (0-5); Hematocrit 45.4 % (40-54); Hemoglobin 15.2 g/dL (13.0-16.5); Lymphocyte # 2.79 X10^3/ul (0.83-4.51); Lymphocyte % 28.9 % (19-41); Mean Corp Hgb Conc 33.5 g/dL (32-36); Mean Corpuscular Hgb 30.9 pg (27.0-32.0); Mean Corpuscular Volume 92.3 fL (80-94); Monocyte# 0.87 X10^3/uL; NRBC Flagged by Analyzer 0 % (0-5); Neutrophil # 5.87 X10^3/uL (2.7-7.7); Neutrophil % 60.9 % (47-70); Platelet Count 178 K/mm3 (150-450); RBC Distribution Width CV 12.5 % (11.6-14.6); RBC Distribution Width SD 42.1 fl (35.1-43.9); Red Blood Count 4.92 M/mm3 (4.6-6.2); White Blood Count 9.7 K/mm3 (4.4-11.0)
== END | disposition home or self-care (01) ==
LOC: OLS.SANC 05:00
PROVIDERS: Visit Provider Internal Medicine
DX: Z79.899 Other long term (current) drug therapy (principal)
CPT/HCPCS: 36415; 85025

== ENCOUNTER → 2022-05-03 | Outpatient (REF) | payer MEDICAID, SELFPAY ==
[2022-05-03 09:50] LABS: Absolute Lymphocyte Count 1.86 X10^3/uL (0.83-4.51); Absolute Neutrophil Count 6.4 X10^3/uL (2.0-7.7); Basophil# 0.03 X10^3/uL; Basophil% 0.3 % (0-1); Eosinophil# 0.03 X10^3/uL; Eosinophils% 0.3 % (0-5); Hematocrit 41.9 % (40-54); Hemoglobin 14.5 g/dL (13.0-16.5); Lymphocyte # 1.86 X10^3/ul (0.83-4.51); Lymphocyte % 20.9 % (19-41); Mean Corp Hgb Conc 34.6 g/dL (32-36); Mean Corpuscular Hgb 31.2 pg (27.0-32.0); Mean Corpuscular Volume 90.1 fL (80-94); Mean Platelet Vol. 11.1 fl (6.2-12.0); Monocyte# 0.55 X10^3/uL; Monocyte% 6.2 % (0-10); NRBC Flagged by Analyzer 0 % (0-5); Neutrophil % 71.9 % (47-70); Platelet Count 203 K/mm3 (150-450); RBC Distribution Width CV 12.2 % (11.6-14.6); RBC Distribution Width SD 39.7 fl (35.1-43.9); Red Blood Count 4.65 M/mm3 (4.6-6.2); White Blood Count 8.9 K/mm3 (4.4-11.0)
== END | disposition home or self-care (01) ==
LOC: OLS.SANC 05:00
PROVIDERS: Visit Provider Internal Medicine
DX: Z79.899 Other long term (current) drug therapy (principal)
CPT/HCPCS: 36415; 85025

== ENCOUNTER → 2022-05-09 | Outpatient (REF) | payer MEDICAID, SELFPAY ==
[2022-05-09 10:18] LABS: Absolute Lymphocyte Count 1.92 X10^3/uL (0.83-4.51); Absolute Neutrophil Count 4.3 X10^3/uL (2.0-7.7); Basophil# 0.05 X10^3/uL; Basophil% 0.7 % (0-1); Eosinophil# 0.05 X10^3/uL; Eosinophils% 0.7 % (0-5); Hematocrit 42.5 % (40-54); Hemoglobin 14.1 g/dL (13.0-16.5); Lymphocyte # 1.92 X10^3/ul (0.83-4.51); Lymphocyte % 27.2 % (19-41); Mean Corp Hgb Conc 33.2 g/dL (32-36); Mean Corpuscular Hgb 30.2 pg (27.0-32.0); Mean Platelet Vol. 11.5 fl (6.2-12.0); Monocyte# 0.72 X10^3/uL; Monocyte% 10.2 % (0-10); NRBC Flagged by Analyzer 0.4 % (0-5); Neutrophil % 60.9 % (47-70); Platelet Count 202 K/mm3 (150-450); RBC Distribution Width CV 12.7 % (11.6-14.6); RBC Distribution Width SD 41.4 fl (35.1-43.9); Red Blood Count 4.67 M/mm3 (4.6-6.2); White Blood Count 7.1 K/mm3 (4.4-11.0)
== END | disposition home or self-care (01) ==
LOC: OLS.SANC 04:00
PROVIDERS: Referring Provider Internal Medicine; Visit Provider Internal Medicine
DX: Z79.899 Other long term (current) drug therapy (principal)
CPT/HCPCS: 36415; 85025

== ENCOUNTER → 2022-05-16 | Outpatient (REF) | payer MEDICAID, SELFPAY ==
[2022-05-16 09:45] LABS: Absolute Lymphocyte Count 2.06 X10^3/uL (0.83-4.51); Absolute Neutrophil Count 4.4 X10^3/uL (2.0-7.7); Basophil# 0.04 X10^3/uL; Basophil% 0.6 % (0-1); Eosinophil# 0.04 X10^3/uL; Eosinophils% 0.6 % (0-5); Hematocrit 41.9 % (40-54); Hemoglobin 13.9 g/dL (13.0-16.5); Lymphocyte # 2.06 X10^3/ul (0.83-4.51); Mean Corp Hgb Conc 33.2 g/dL (32-36); Mean Corpuscular Hgb 30.3 pg (27.0-32.0); Mean Corpuscular Volume 91.5 fL (80-94); Mean Platelet Vol. 11.1 fl (6.2-12.0); Monocyte# 0.58 X10^3/uL; Monocyte% 8.2 % (0-10); NRBC Flagged by Analyzer 0 % (0-5); Neutrophil # 4.35 X10^3/uL (2.7-7.7); Neutrophil % 61.2 % (47-70); Platelet Count 205 K/mm3 (150-450); RBC Distribution Width CV 12.5 % (11.6-14.6); RBC Distribution Width SD 41.3 fl (35.1-43.9); Red Blood Count 4.58 M/mm3 (4.6-6.2); White Blood Count 7.1 K/mm3 (4.4-11.0)
== END | disposition home or self-care (01) ==
LOC: OLS.SANC 05:00
PROVIDERS: Visit Provider Internal Medicine
DX: Z79.899 Other long term (current) drug therapy (principal)
CPT/HCPCS: 36415; 85025

== ENCOUNTER → 2022-05-23 | Outpatient (REF) | payer MEDICAID, SELFPAY ==
[2022-05-23 09:09] LABS: Absolute Lymphocyte Count 2.07 X10^3/uL (0.83-4.51); Absolute Neutrophil Count 5.7 X10^3/uL (2.0-7.7); Basophil# 0.04 X10^3/uL; Basophil% 0.5 % (0-1); Eosinophil# 0.03 X10^3/uL; Eosinophils% 0.4 % (0-5); Hematocrit 43.2 % (40-54); Hemoglobin 14.3 g/dL (13.0-16.5); Lymphocyte # 2.07 X10^3/ul (0.83-4.51); Lymphocyte % 24.4 % (19-41); Mean Corp Hgb Conc 33.1 g/dL (32-36); Mean Corpuscular Hgb 30.1 pg (27.0-32.0); Mean Corpuscular Volume 90.9 fL (80-94); Mean Platelet Vol. 11.1 fl (6.2-12.0); Monocyte# 0.65 X10^3/uL; Monocyte% 7.7 % (0-10); NRBC Flagged by Analyzer 0 % (0-5); Neutrophil # 5.66 X10^3/uL (2.7-7.7); Neutrophil % 66.5 % (47-70); Platelet Count 213 K/mm3 (150-450); RBC Distribution Width CV 12.5 % (11.6-14.6); RBC Distribution Width SD 41.7 fl (35.1-43.9); Red Blood Count 4.75 M/mm3 (4.6-6.2); White Blood Count 8.5 K/mm3 (4.4-11.0)
== END | disposition home or self-care (01) ==
LOC: OLS.SANC 05:00
PROVIDERS: Visit Provider Internal Medicine
DX: Z79.899 Other long term (current) drug therapy (principal)
CPT/HCPCS: 36415; 85025

== ENCOUNTER → 2022-05-30 | Outpatient (REF) | payer MEDICAID, SELFPAY ==
[2022-05-30 09:40] LABS: Absolute Lymphocyte Count 2.32 X10^3/uL (0.83-4.51); Absolute Neutrophil Count 5.2 X10^3/uL (2.0-7.7); Basophil# 0.03 X10^3/uL; Basophil% 0.4 % (0-1); Eosinophil# 0.04 X10^3/uL; Eosinophils% 0.5 % (0-5); Hematocrit 44.6 % (40-54); Hemoglobin 14.6 g/dL (13.0-16.5); Lymphocyte # 2.32 X10^3/ul (0.83-4.51); Lymphocyte % 27.9 % (19-41); Mean Corp Hgb Conc 32.7 g/dL (32-36); Mean Corpuscular Volume 91.6 fL (80-94); Mean Platelet Vol. 10.9 fl (6.2-12.0); Monocyte# 0.67 X10^3/uL; NRBC Flagged by Analyzer 0 % (0-5); Neutrophil # 5.22 X10^3/uL (2.7-7.7); Neutrophil % 62.6 % (47-70); Platelet Count 213 K/mm3 (150-450); RBC Distribution Width CV 12.6 % (11.6-14.6); RBC Distribution Width SD 42.4 fl (35.1-43.9); Red Blood Count 4.87 M/mm3 (4.6-6.2); White Blood Count 8.3 K/mm3 (4.4-11.0)
== END | disposition home or self-care (01) ==
LOC: OLS.SANC 04:00
PROVIDERS: Referring Provider Internal Medicine; Visit Provider Internal Medicine
DX: F20.9 Schizophrenia, unspecified (principal); Z79.899 Other long term (current) drug therapy
CPT/HCPCS: 36415; 85025

== ENCOUNTER → 2022-06-06 | Outpatient (REF) | payer MEDICAID, SELFPAY ==
[2022-06-06 09:15] LABS: Absolute Lymphocyte Count 2.02 X10^3/uL (0.83-4.51); Absolute Neutrophil Count 4.7 X10^3/uL (2.0-7.7); Basophil# 0.04 X10^3/uL; Basophil% 0.5 % (0-1); Eosinophil# 0.05 X10^3/uL; Eosinophils% 0.7 % (0-5); Hematocrit 41.2 % (40-54); Lymphocyte # 2.02 X10^3/ul (0.83-4.51); Lymphocyte % 27.2 % (19-41); Mean Corpuscular Hgb 30.6 pg (27.0-32.0); Mean Corpuscular Volume 90.2 fL (80-94); Mean Platelet Vol. 10.7 fl (6.2-12.0); Monocyte# 0.59 X10^3/uL; Monocyte% 7.9 % (0-10); NRBC Flagged by Analyzer 0 % (0-5); Neutrophil # 4.71 X10^3/uL (2.7-7.7); Neutrophil % 63.3 % (47-70); Platelet Count 197 K/mm3 (150-450); RBC Distribution Width CV 12.7 % (11.6-14.6); RBC Distribution Width SD 41.5 fl (35.1-43.9); Red Blood Count 4.57 M/mm3 (4.6-6.2); White Blood Count 7.4 K/mm3 (4.4-11.0)
== END | disposition home or self-care (01) ==
LOC: OLS.SANC 05:00
PROVIDERS: Visit Provider Internal Medicine
DX: Z79.899 Other long term (current) drug therapy (principal)
CPT/HCPCS: 36415; 85025

== ENCOUNTER → 2022-06-13 | Outpatient (REF) | payer MEDICAID, SELFPAY ==
[2022-06-13 08:26] LABS: Absolute Lymphocyte Count 2.28 X10^3/uL (0.83-4.51); Basophil# 0.05 X10^3/uL; Basophil% 0.5 % (0-1); Eosinophil# 0.04 X10^3/uL; Eosinophils% 0.4 % (0-5); Hemoglobin 13.7 g/dL (13.0-16.5); Lymphocyte # 2.28 X10^3/ul (0.83-4.51); Lymphocyte % 24.9 % (19-41); Mean Corp Hgb Conc 32.6 g/dL (32-36); Mean Corpuscular Hgb 30.1 pg (27.0-32.0); Mean Corpuscular Volume 92.3 fL (80-94); Mean Platelet Vol. 10.9 fl (6.2-12.0); Monocyte# 0.75 X10^3/uL; Monocyte% 8.2 % (0-10); NRBC Flagged by Analyzer 0 % (0-5); Neutrophil % 65.6 % (47-70); Platelet Count 203 K/mm3 (150-450); RBC Distribution Width CV 12.8 % (11.6-14.6); RBC Distribution Width SD 43.2 fl (35.1-43.9); Red Blood Count 4.55 M/mm3 (4.6-6.2); White Blood Count 9.2 K/mm3 (4.4-11.0)
== END | disposition home or self-care (01) ==
LOC: OLS.SANC 05:00
PROVIDERS: Visit Provider Internal Medicine
DX: F20.9 Schizophrenia, unspecified (principal); Z79.899 Other long term (current) drug therapy
CPT/HCPCS: 36415; 85025

== ENCOUNTER → 2022-06-20 | Outpatient (REF) | payer MEDICAID, SELFPAY ==
[2022-06-20 07:33] LABS: Absolute Lymphocyte Count 1.57 X10^3/uL (0.83-4.51); Absolute Neutrophil Count 6.5 X10^3/uL (2.0-7.7); Basophil# 0.02 X10^3/uL; Basophil% 0.2 % (0-1); Eosinophil# 0.02 X10^3/uL; Eosinophils% 0.2 % (0-5); Hematocrit 44.1 % (40-54); Hemoglobin 14.6 g/dL (13.0-16.5); Lymphocyte # 1.57 X10^3/ul (0.83-4.51); Lymphocyte % 17.8 % (19-41); Mean Corp Hgb Conc 33.1 g/dL (32-36); Mean Corpuscular Hgb 30.5 pg (27.0-32.0); Mean Corpuscular Volume 92.1 fL (80-94); Mean Platelet Vol. 11.1 fl (6.2-12.0); Monocyte# 0.62 X10^3/uL; NRBC Flagged by Analyzer 0 % (0-5); Neutrophil # 6.54 X10^3/uL (2.7-7.7); Neutrophil % 74.5 % (47-70); Platelet Count 207 K/mm3 (150-450); RBC Distribution Width CV 12.6 % (11.6-14.6); RBC Distribution Width SD 42.4 fl (35.1-43.9); Red Blood Count 4.79 M/mm3 (4.6-6.2); White Blood Count 8.8 K/mm3 (4.4-11.0)
== END | disposition home or self-care (01) ==
LOC: OLS.SANC 05:00
PROVIDERS: Visit Provider Internal Medicine
DX: Z79.899 Other long term (current) drug therapy (principal)
CPT/HCPCS: 36415; 85025

== ENCOUNTER → 2022-06-27 | Outpatient (REF) | payer MEDICAID, SELFPAY ==
[2022-06-27 08:13] LABS: Absolute Lymphocyte Count 1.83 X10^3/uL (0.83-4.51); Basophil# 0.03 X10^3/uL; Basophil% 0.4 % (0-1); Eosinophil# 0.04 X10^3/uL; Eosinophils% 0.5 % (0-5); Hematocrit 41.2 % (40-54); Hemoglobin 13.9 g/dL (13.0-16.5); Lymphocyte # 1.83 X10^3/ul (0.83-4.51); Lymphocyte % 24.7 % (19-41); Mean Corp Hgb Conc 33.7 g/dL (32-36); Mean Corpuscular Hgb 30.8 pg (27.0-32.0); Mean Corpuscular Volume 91.2 fL (80-94); Mean Platelet Vol. 10.7 fl (6.2-12.0); Monocyte# 0.47 X10^3/uL; Monocyte% 6.4 % (0-10); NRBC Flagged by Analyzer 0 % (0-5); Neutrophil % 67.6 % (47-70); Platelet Count 200 K/mm3 (150-450); RBC Distribution Width CV 12.7 % (11.6-14.6); RBC Distribution Width SD 41.9 fl (35.1-43.9); Red Blood Count 4.52 M/mm3 (4.6-6.2); White Blood Count 7.4 K/mm3 (4.4-11.0)
== END | disposition home or self-care (01) ==
LOC: OLS.SANC 05:00
PROVIDERS: Visit Provider Internal Medicine
DX: F20.9 Schizophrenia, unspecified (principal); Z79.899 Other long term (current) drug therapy
CPT/HCPCS: 36415; 85025

== ENCOUNTER → 2022-07-04 | Outpatient (REF) | payer MEDICAID, SELFPAY ==
[2022-07-04 08:48] LABS: Absolute Lymphocyte Count 1.87 X10^3/uL (0.83-4.51); Absolute Neutrophil Count 7.5 X10^3/uL (2.0-7.7); Basophil# 0.04 X10^3/uL; Basophil% 0.4 % (0-1); Eosinophil# 0.05 X10^3/uL; Eosinophils% 0.5 % (0-5); Hematocrit 41.4 % (40-54); Hemoglobin 13.5 g/dL (13.0-16.5); Lymphocyte # 1.87 X10^3/ul (0.83-4.51); Lymphocyte % 18.1 % (19-41); Mean Corp Hgb Conc 32.6 g/dL (32-36); Mean Corpuscular Hgb 30.3 pg (27.0-32.0); Mean Platelet Vol. 11.3 fl (6.2-12.0); Monocyte% 7.7 % (0-10); NRBC Flagged by Analyzer 0 % (0-5); Neutrophil # 7.53 X10^3/uL (2.7-7.7); Neutrophil % 72.8 % (47-70); Platelet Count 211 K/mm3 (150-450); RBC Distribution Width CV 12.5 % (11.6-14.6); Red Blood Count 4.45 M/mm3 (4.6-6.2); White Blood Count 10.3 K/mm3 (4.4-11.0)
== END | disposition home or self-care (01) ==
LOC: OLS.SANC 05:00
PROVIDERS: Visit Provider Internal Medicine
DX: Z79.899 Other long term (current) drug therapy (principal)
CPT/HCPCS: 36415; 85025

== ENCOUNTER → 2022-07-11 | Outpatient (REF) | payer MEDICAID, SELFPAY ==
[2022-07-11 08:49] LABS: Absolute Lymphocyte Count 2.37 X10^3/uL (0.83-4.51); Absolute Neutrophil Count 5.3 X10^3/uL (2.0-7.7); Basophil# 0.05 X10^3/uL; Basophil% 0.6 % (0-1); Eosinophil# 0.04 X10^3/uL; Eosinophils% 0.5 % (0-5); Hematocrit 43.8 % (40-54); Hemoglobin 14.7 g/dL (13.0-16.5); Lymphocyte # 2.37 X10^3/ul (0.83-4.51); Lymphocyte % 27.8 % (19-41); Mean Corp Hgb Conc 33.6 g/dL (32-36); Mean Corpuscular Hgb 30.4 pg (27.0-32.0); Mean Corpuscular Volume 90.7 fL (80-94); Mean Platelet Vol. 10.6 fl (6.2-12.0); Monocyte# 0.75 X10^3/uL; Monocyte% 8.8 % (0-10); NRBC Flagged by Analyzer 0 % (0-5); Neutrophil # 5.26 X10^3/uL (2.7-7.7); Neutrophil % 61.8 % (47-70); Platelet Count 207 K/mm3 (150-450); RBC Distribution Width CV 12.7 % (11.6-14.6); RBC Distribution Width SD 41.2 fl (35.1-43.9); Red Blood Count 4.83 M/mm3 (4.6-6.2); White Blood Count 8.5 K/mm3 (4.4-11.0)
== END | disposition home or self-care (01) ==
LOC: OLS.SANC 04:00
PROVIDERS: Referring Provider Internal Medicine; Visit Provider Internal Medicine
DX: F20.9 Schizophrenia, unspecified (principal); Z79.899 Other long term (current) drug therapy
CPT/HCPCS: 36415; 85025

== ENCOUNTER → 2022-07-18 | Outpatient (REF) | payer MEDICAID, SELFPAY ==
[2022-07-18 08:49] LABS: Absolute Lymphocyte Count 2.48 X10^3/uL (0.83-4.51); Absolute Neutrophil Count 5.9 X10^3/uL (2.0-7.7); Basophil# 0.05 X10^3/uL; Basophil% 0.5 % (0-1); Eosinophil# 0.06 X10^3/uL; Eosinophils% 0.6 % (0-5); Hematocrit 42.8 % (40-54); Hemoglobin 13.9 g/dL (13.0-16.5); Lymphocyte # 2.48 X10^3/ul (0.83-4.51); Lymphocyte % 25.9 % (19-41); Mean Corp Hgb Conc 32.5 g/dL (32-36); Mean Corpuscular Hgb 30.5 pg (27.0-32.0); Mean Corpuscular Volume 93.9 fL (80-94); Mean Platelet Vol. 11.3 fl (6.2-12.0); Monocyte# 1.05 X10^3/uL; NRBC Flagged by Analyzer 0 % (0-5); Neutrophil # 5.88 X10^3/uL (2.7-7.7); Neutrophil % 61.6 % (47-70); Platelet Count 207 K/mm3 (150-450); RBC Distribution Width CV 12.8 % (11.6-14.6); Red Blood Count 4.56 M/mm3 (4.6-6.2); White Blood Count 9.6 K/mm3 (4.4-11.0)
== END | disposition home or self-care (01) ==
LOC: OLS.SANC 04:00
PROVIDERS: Referring Provider Internal Medicine; Visit Provider Internal Medicine
DX: Z79.899 Other long term (current) drug therapy (principal)
CPT/HCPCS: 36415; 85025

== ENCOUNTER → 2022-07-19 | Outpatient (REF) | payer MEDICAID, SELFPAY ==
[2022-07-19 09:22] LABS: Vitamin D,25 Hydroxy 34.2 ng/mL
== END | disposition home or self-care (01) ==
LOC: OLS.SANC 05:00
PROVIDERS: Visit Provider Internal Medicine
DX: E55.9 Vitamin D deficiency, unspecified (principal); F20.9 Schizophrenia, unspecified
CPT/HCPCS: 36415; 82306

== ENCOUNTER → 2022-07-25 | Outpatient (REF) | payer MEDICAID, SELFPAY ==
[2022-07-25 08:25] LABS: Absolute Lymphocyte Count 2.16 X10^3/uL (0.83-4.51); Absolute Neutrophil Count 5.4 X10^3/uL (2.0-7.7); Basophil# 0.05 X10^3/uL; Basophil% 0.6 % (0-1); Eosinophil# 0.05 X10^3/uL; Eosinophils% 0.6 % (0-5); Hematocrit 41.3 % (40-54); Hemoglobin 13.4 g/dL (13.0-16.5); Lymphocyte # 2.16 X10^3/ul (0.83-4.51); Lymphocyte % 25.7 % (19-41); Mean Corp Hgb Conc 32.4 g/dL (32-36); Mean Corpuscular Hgb 30.1 pg (27.0-32.0); Mean Corpuscular Volume 92.8 fL (80-94); Monocyte# 0.71 X10^3/uL; Monocyte% 8.4 % (0-10); NRBC Flagged by Analyzer 0 % (0-5); Neutrophil # 5.43 X10^3/uL (2.7-7.7); Neutrophil % 64.5 % (47-70); Platelet Count 200 K/mm3 (150-450); RBC Distribution Width CV 12.5 % (11.6-14.6); RBC Distribution Width SD 42.5 fl (35.1-43.9); Red Blood Count 4.45 M/mm3 (4.6-6.2); White Blood Count 8.4 K/mm3 (4.4-11.0)
== END | disposition home or self-care (01) ==
LOC: OLS.SANC 05:00
PROVIDERS: Visit Provider Internal Medicine
DX: F20.9 Schizophrenia, unspecified (principal); Z79.899 Other long term (current) drug therapy
CPT/HCPCS: 36415; 85025

== ENCOUNTER → 2022-08-01 | Outpatient (REF) | payer MEDICAID, SELFPAY ==
[2022-08-01 10:16] LABS: Absolute Lymphocyte Count 2.09 X10^3/uL (0.83-4.51); Absolute Neutrophil Count 6.6 X10^3/uL (2.0-7.7); Basophil# 0.04 X10^3/uL; Basophil% 0.4 % (0-1); Eosinophil# 0.04 X10^3/uL; Eosinophils% 0.4 % (0-5); Hemoglobin 13.9 g/dL (13.0-16.5); Lymphocyte # 2.09 X10^3/ul (0.83-4.51); Lymphocyte % 21.9 % (19-41); Mean Corp Hgb Conc 33.9 g/dL (32-36); Mean Corpuscular Volume 91.5 fL (80-94); Monocyte# 0.75 X10^3/uL; Monocyte% 7.9 % (0-10); NRBC Flagged by Analyzer 0 % (0-5); Neutrophil # 6.59 X10^3/uL (2.7-7.7); Neutrophil % 69.1 % (47-70); Platelet Count 208 K/mm3 (150-450); RBC Distribution Width CV 12.5 % (11.6-14.6); RBC Distribution Width SD 41.6 fl (35.1-43.9); Red Blood Count 4.48 M/mm3 (4.6-6.2); White Blood Count 9.5 K/mm3 (4.4-11.0)
== END | disposition home or self-care (01) ==
LOC: OLS.SANC 04:00
PROVIDERS: Referring Provider Internal Medicine; Visit Provider Internal Medicine
DX: Z79.899 Other long term (current) drug therapy (principal)
CPT/HCPCS: 36415; 85025

== ENCOUNTER → 2022-08-08 | Outpatient (REF) | payer MEDICAID, SELFPAY ==
[2022-08-08 08:18] LABS: Absolute Lymphocyte Count 1.96 X10^3/uL (0.83-4.51); Absolute Neutrophil Count 4.7 X10^3/uL (2.0-7.7); Basophil# 0.04 X10^3/uL; Basophil% 0.5 % (0-1); Eosinophil# 0.04 X10^3/uL; Eosinophils% 0.5 % (0-5); Hematocrit 40.7 % (40-54); Hemoglobin 13.6 g/dL (13.0-16.5); Lymphocyte # 1.96 X10^3/ul (0.83-4.51); Lymphocyte % 26.5 % (19-41); Mean Corp Hgb Conc 33.4 g/dL (32-36); Mean Corpuscular Hgb 30.6 pg (27.0-32.0); Mean Corpuscular Volume 91.7 fL (80-94); Mean Platelet Vol. 10.8 fl (6.2-12.0); Monocyte% 8.1 % (0-10); NRBC Flagged by Analyzer 0 % (0-5); Neutrophil # 4.74 X10^3/uL (2.7-7.7); Neutrophil % 64.1 % (47-70); Platelet Count 187 K/mm3 (150-450); RBC Distribution Width CV 12.6 % (11.6-14.6); RBC Distribution Width SD 42.7 fl (35.1-43.9); Red Blood Count 4.44 M/mm3 (4.6-6.2); White Blood Count 7.4 K/mm3 (4.4-11.0)
== END | disposition home or self-care (01) ==
LOC: OLS.SANC 05:00
PROVIDERS: Visit Provider Internal Medicine
DX: F20.9 Schizophrenia, unspecified (principal)
CPT/HCPCS: 36415; 85025

== ENCOUNTER → 2022-08-15 | Outpatient (REF) | payer MEDICAID, SELFPAY ==
[2022-08-15 08:53] LABS: Absolute Lymphocyte Count 1.88 X10^3/uL (0.83-4.51); Absolute Neutrophil Count 5.1 X10^3/uL (2.0-7.7); Basophil# 0.04 X10^3/uL; Basophil% 0.5 % (0-1); Eosinophil# 0.04 X10^3/uL; Eosinophils% 0.5 % (0-5); Hematocrit 40.8 % (40-54); Hemoglobin 13.7 g/dL (13.0-16.5); Lymphocyte # 1.88 X10^3/ul (0.83-4.51); Lymphocyte % 23.9 % (19-41); Mean Corp Hgb Conc 33.6 g/dL (32-36); Mean Corpuscular Hgb 30.6 pg (27.0-32.0); Mean Corpuscular Volume 91.1 fL (80-94); Mean Platelet Vol. 10.7 fl (6.2-12.0); Monocyte# 0.77 X10^3/uL; Monocyte% 9.8 % (0-10); NRBC Flagged by Analyzer 0 % (0-5); Neutrophil # 5.11 X10^3/uL (2.7-7.7); Platelet Count 212 K/mm3 (150-450); RBC Distribution Width CV 12.4 % (11.6-14.6); Red Blood Count 4.48 M/mm3 (4.6-6.2); White Blood Count 7.9 K/mm3 (4.4-11.0)
== END | disposition home or self-care (01) ==
LOC: OLS.SANC 05:00
PROVIDERS: Visit Provider Internal Medicine
DX: Z79.899 Other long term (current) drug therapy (principal)
CPT/HCPCS: 36415; 85025

== ENCOUNTER → 2022-08-22 | Outpatient (REF) | payer MEDICAID, SELFPAY ==
[2022-08-22 10:35] LABS: Absolute Lymphocyte Count 1.86 X10^3/uL (0.83-4.51); Absolute Neutrophil Count 6.5 X10^3/uL (2.0-7.7); Basophil# 0.04 X10^3/uL; Basophil% 0.4 % (0-1); Eosinophil# 0.04 X10^3/uL; Eosinophils% 0.4 % (0-5); Hematocrit 41.8 % (40-54); Hemoglobin 14.1 g/dL (13.0-16.5); Lymphocyte # 1.86 X10^3/ul (0.83-4.51); Lymphocyte % 20.1 % (19-41); Mean Corp Hgb Conc 33.7 g/dL (32-36); Mean Corpuscular Volume 91.9 fL (80-94); Mean Platelet Vol. 10.8 fl (6.2-12.0); Monocyte# 0.77 X10^3/uL; Monocyte% 8.3 % (0-10); NRBC Flagged by Analyzer 0 % (0-5); Neutrophil # 6.52 X10^3/uL (2.7-7.7); Neutrophil % 70.5 % (47-70); Platelet Count 197 K/mm3 (150-450); RBC Distribution Width CV 12.6 % (11.6-14.6); RBC Distribution Width SD 42.5 fl (35.1-43.9); Red Blood Count 4.55 M/mm3 (4.6-6.2); White Blood Count 9.3 K/mm3 (4.4-11.0)
== END | disposition home or self-care (01) ==
LOC: OLS.SANC 04:00
PROVIDERS: Referring Provider Internal Medicine; Visit Provider Internal Medicine
DX: F20.9 Schizophrenia, unspecified (principal)
CPT/HCPCS: 36415; 85025

== ENCOUNTER → 2022-08-29 | Outpatient (REF) | payer MEDICAID, SELFPAY ==
[2022-08-29 09:10] LABS: Absolute Lymphocyte Count 1.91 X10^3/uL (0.83-4.51); Absolute Neutrophil Count 4.8 X10^3/uL (2.0-7.7); Basophil# 0.03 X10^3/uL; Basophil% 0.4 % (0-1); Eosinophil# 0.03 X10^3/uL; Eosinophils% 0.4 % (0-5); Hematocrit 40.8 % (40-54); Hemoglobin 13.6 g/dL (13.0-16.5); Lymphocyte # 1.91 X10^3/ul (0.83-4.51); Lymphocyte % 26.2 % (19-41); Mean Corp Hgb Conc 33.3 g/dL (32-36); Mean Corpuscular Hgb 30.7 pg (27.0-32.0); Mean Corpuscular Volume 92.1 fL (80-94); Monocyte# 0.48 X10^3/uL; Monocyte% 6.6 % (0-10); NRBC Flagged by Analyzer 0 % (0-5); Platelet Count 195 K/mm3 (150-450); RBC Distribution Width CV 12.4 % (11.6-14.6); Red Blood Count 4.43 M/mm3 (4.6-6.2); White Blood Count 7.3 K/mm3 (4.4-11.0)
== END ==
LOC: OLS.SANC 05:00
PROVIDERS: Visit Provider Internal Medicine
DX: Z79.899 Other long term (current) drug therapy (principal)
CPT/HCPCS: 36415; 85025

== ENCOUNTER → 2022-09-05 | Outpatient (REF) | payer MEDICAID, SELFPAY ==
[2022-09-05 09:34] LABS: Absolute Lymphocyte Count 1.94 X10^3/uL (0.83-4.51); Absolute Neutrophil Count 5.4 X10^3/uL (2.0-7.7); Basophil# 0.04 X10^3/uL; Basophil% 0.5 % (0-1); Eosinophil# 0.03 X10^3/uL; Eosinophils% 0.4 % (0-5); Hematocrit 39.1 % (40-54); Hemoglobin 12.9 g/dL (13.0-16.5); Lymphocyte # 1.94 X10^3/ul (0.83-4.51); Lymphocyte % 24.5 % (19-41); Mean Corpuscular Hgb 30.1 pg (27.0-32.0); Mean Corpuscular Volume 91.4 fL (80-94); Mean Platelet Vol. 10.7 fl (6.2-12.0); Monocyte# 0.52 X10^3/uL; Monocyte% 6.6 % (0-10); NRBC Flagged by Analyzer 0 % (0-5); Neutrophil # 5.36 X10^3/uL (2.7-7.7); Neutrophil % 67.5 % (47-70); Platelet Count 200 K/mm3 (150-450); RBC Distribution Width CV 12.6 % (11.6-14.6); RBC Distribution Width SD 41.5 fl (35.1-43.9); Red Blood Count 4.28 M/mm3 (4.6-6.2); White Blood Count 7.9 K/mm3 (4.4-11.0)
[2022-09-05 09:59] LABS: Cholesterol 136 mg/dL (200); High Density Lipoprotein 24 mg/dL; Triglycerides 304 mg/dL; Very Low Density Lipoprotein 61 mg/dL (5-40)
== END | disposition home or self-care (01) ==
LOC: OLS.SANC 05:00
PROVIDERS: Visit Provider Internal Medicine
DX: F20.9 Schizophrenia, unspecified (principal); Z79.899 Other long term (current) drug therapy
CPT/HCPCS: 36415; 80061; 85025

== ENCOUNTER → 2022-09-12 | Outpatient (REF) | payer MEDICAID, SELFPAY ==
[2022-09-12 08:58] LABS: Absolute Lymphocyte Count 2.11 X10^3/uL (0.83-4.51); Absolute Neutrophil Count 4.7 X10^3/uL (2.0-7.7); Basophil# 0.04 X10^3/uL; Basophil% 0.5 % (0-1); Eosinophil# 0.05 X10^3/uL; Eosinophils% 0.7 % (0-5); Hematocrit 40.2 % (40-54); Hemoglobin 13.5 g/dL (13.0-16.5); Lymphocyte # 2.11 X10^3/ul (0.83-4.51); Lymphocyte % 28.8 % (19-41); Mean Corp Hgb Conc 33.6 g/dL (32-36); Mean Corpuscular Hgb 30.7 pg (27.0-32.0); Mean Corpuscular Volume 91.4 fL (80-94); Mean Platelet Vol. 10.7 fl (6.2-12.0); Monocyte# 0.45 X10^3/uL; Monocyte% 6.1 % (0-10); NRBC Flagged by Analyzer 0 % (0-5); Neutrophil # 4.65 X10^3/uL (2.7-7.7); Neutrophil % 63.6 % (47-70); Platelet Count 197 K/mm3 (150-450); RBC Distribution Width CV 12.5 % (11.6-14.6); RBC Distribution Width SD 41.3 fl (35.1-43.9); White Blood Count 7.3 K/mm3 (4.4-11.0)
== END | disposition home or self-care (01) ==
LOC: OLS.SANC 04:00
PROVIDERS: Referring Provider Internal Medicine; Visit Provider Internal Medicine
DX: Z79.899 Other long term (current) drug therapy (principal)
CPT/HCPCS: 36415; 85025

== ENCOUNTER → 2022-09-19 | Outpatient (REF) | payer MEDICAID, SELFPAY ==
[2022-09-19 09:19] LABS: Absolute Lymphocyte Count 1.59 X10^3/uL (0.83-4.51); Absolute Neutrophil Count 7.4 X10^3/uL (2.0-7.7); Basophil# 0.05 X10^3/uL; Basophil% 0.5 % (0-1); Eosinophil# 0.03 X10^3/uL; Eosinophils% 0.3 % (0-5); Hematocrit 41.1 % (40-54); Hemoglobin 13.5 g/dL (13.0-16.5); Lymphocyte # 1.59 X10^3/ul (0.83-4.51); Lymphocyte % 16.1 % (19-41); Mean Corp Hgb Conc 32.8 g/dL (32-36); Mean Corpuscular Hgb 30.3 pg (27.0-32.0); Mean Corpuscular Volume 92.2 fL (80-94); Mean Platelet Vol. 10.8 fl (6.2-12.0); Monocyte# 0.75 X10^3/uL; Monocyte% 7.6 % (0-10); NRBC Flagged by Analyzer 0 % (0-5); Platelet Count 245 K/mm3 (150-450); RBC Distribution Width CV 12.3 % (11.6-14.6); RBC Distribution Width SD 41.2 fl (35.1-43.9); Red Blood Count 4.46 M/mm3 (4.6-6.2); White Blood Count 9.9 K/mm3 (4.4-11.0)
== END | disposition home or self-care (01) ==
LOC: OLS.SANC 05:00
PROVIDERS: Visit Provider Internal Medicine
DX: F20.9 Schizophrenia, unspecified (principal); Z79.899 Other long term (current) drug therapy
CPT/HCPCS: 36415; 85025

== ENCOUNTER → 2022-10-03 | Outpatient (REF) | payer MEDICAID, SELFPAY ==
[2022-10-03 09:48] LABS: Absolute Neutrophil Count 5.1 X10^3/uL (2.0-7.7); Basophil# 0.05 X10^3/uL; Basophil% 0.6 % (0-1); Eosinophil# 0.06 X10^3/uL; Eosinophils% 0.8 % (0-5); Hemoglobin 13.9 g/dL (13.0-16.5); Lymphocyte % 25.1 % (19-41); Mean Corp Hgb Conc 32.3 g/dL (32-36); Mean Corpuscular Hgb 30.3 pg (27.0-32.0); Mean Corpuscular Volume 93.9 fL (80-94); Mean Platelet Vol. 11.1 fl (6.2-12.0); NRBC Flagged by Analyzer 0 % (0-5); Neutrophil # 5.05 X10^3/uL (2.7-7.7); Neutrophil % 63.2 % (47-70); Platelet Count 204 K/mm3 (150-450); RBC Distribution Width CV 12.7 % (11.6-14.6); RBC Distribution Width SD 43.8 fl (35.1-43.9); Red Blood Count 4.58 M/mm3 (4.6-6.2)
[2022-10-03 09:53] LABS: AST(SGOT) 13 U/L (15-37); Alanine Aminotransfer ALT/SGPT 19 U/L (16-61); Alkaline Phosphatase 98 U/L (45-117); Anion Gap 0 (5-15); BUN 16 mg/dL (7-18); BUN/Creat Ratio 25.6 RATIO (10-20); Calcium,Total 8.4 mg/dL (8.5-10.1); Chloride 109 mmol/L (98-107); Cholesterol 129 mg/dL (200); Creatinine, Serum 0.63 mg/dL (0.70-1.30); EST Glomerular Filtration Rate 137 mL/min (>60); Est Glom Filt Rate - Afr Amer 165 mL/min (>60); Globulin 3.1 g/dL (2.2-4.2); Glucose 82 mg/dL (74-106); High Density Lipoprotein 29 mg/dL; Potassium 3.9 mmol/L (3.5-5.1); Protein, Total 6.1 g/dL (6.4-8.2); Sodium Level 140 mmol/L (136-145); Triglycerides 209 mg/dL; Very Low Density Lipoprotein 42 mg/dL (5-40)
== END | disposition home or self-care (01) ==
LOC: OLS.SANC 05:00
PROVIDERS: Visit Provider Internal Medicine
DX: F20.9 Schizophrenia, unspecified (principal); Z79.899 Other long term (current) drug therapy
CPT/HCPCS: 36415; 80053; 80061; 85025

== ENCOUNTER → 2022-10-10 | Outpatient (REF) | payer MEDICAID, SELFPAY ==
[2022-10-10 09:01] LABS: Absolute Lymphocyte Count 2.21 X10^3/uL (0.83-4.51); Absolute Neutrophil Count 4.7 X10^3/uL (2.0-7.7); Basophil# 0.05 X10^3/uL; Basophil% 0.6 % (0-1); Eosinophil# 0.05 X10^3/uL; Eosinophils% 0.6 % (0-5); Hematocrit 45.3 % (40-54); Hemoglobin 14.4 g/dL (13.0-16.5); Lymphocyte # 2.21 X10^3/ul (0.83-4.51); Mean Corp Hgb Conc 31.8 g/dL (32-36); Mean Corpuscular Hgb 30.1 pg (27.0-32.0); Mean Corpuscular Volume 94.8 fL (80-94); Mean Platelet Vol. 10.7 fl (6.2-12.0); Monocyte# 0.85 X10^3/uL; Monocyte% 10.8 % (0-10); NRBC Flagged by Analyzer 0 % (0-5); Neutrophil # 4.71 X10^3/uL (2.7-7.7); Neutrophil % 59.6 % (47-70); Platelet Count 198 K/mm3 (150-450); RBC Distribution Width CV 12.6 % (11.6-14.6); RBC Distribution Width SD 43.8 fl (35.1-43.9); Red Blood Count 4.78 M/mm3 (4.6-6.2); White Blood Count 7.9 K/mm3 (4.4-11.0)
== END | disposition home or self-care (01) ==
LOC: OLS.SANC 05:00
PROVIDERS: Visit Provider Internal Medicine
DX: J95.821 Acute postprocedural respiratory failure (principal); Z79.899 Other long term (current) drug therapy
CPT/HCPCS: 36415; 85025

== ENCOUNTER → 2022-10-17 | Outpatient (REF) | payer MEDICAID, SELFPAY ==
[2022-10-17 09:42] LABS: Absolute Lymphocyte Count 2.05 X10^3/uL (0.83-4.51); Absolute Neutrophil Count 6.7 X10^3/uL (2.0-7.7); Basophil# 0.04 X10^3/uL; Basophil% 0.4 % (0-1); Eosinophil# 0.05 X10^3/uL; Eosinophils% 0.5 % (0-5); Hematocrit 40.6 % (40-54); Hemoglobin 13.3 g/dL (13.0-16.5); Lymphocyte # 2.05 X10^3/ul (0.83-4.51); Lymphocyte % 21.7 % (19-41); Mean Corp Hgb Conc 32.8 g/dL (32-36); Mean Corpuscular Hgb 30.7 pg (27.0-32.0); Mean Corpuscular Volume 93.8 fL (80-94); Mean Platelet Vol. 10.9 fl (6.2-12.0); Monocyte# 0.58 X10^3/uL; Monocyte% 6.1 % (0-10); NRBC Flagged by Analyzer 0 % (0-5); Neutrophil # 6.68 X10^3/uL (2.7-7.7); Neutrophil % 70.9 % (47-70); Platelet Count 186 K/mm3 (150-450); RBC Distribution Width CV 12.4 % (11.6-14.6); RBC Distribution Width SD 42.7 fl (35.1-43.9); Red Blood Count 4.33 M/mm3 (4.6-6.2); White Blood Count 9.4 K/mm3 (4.4-11.0)
== END | disposition home or self-care (01) ==
LOC: OLS.SANC 05:00
PROVIDERS: Visit Provider Internal Medicine
DX: F20.9 Schizophrenia, unspecified (principal); Z79.899 Other long term (current) drug therapy
CPT/HCPCS: 36415; 85025

== ENCOUNTER → 2022-10-24 | Outpatient (REF) | payer MEDICAID, SELFPAY ==
[2022-10-24 09:20] LABS: Absolute Lymphocyte Count 1.96 X10^3/uL (0.83-4.51); Absolute Neutrophil Count 4.5 X10^3/uL (2.0-7.7); Basophil# 0.03 X10^3/uL; Basophil% 0.4 % (0-1); Eosinophil# 0.05 X10^3/uL; Eosinophils% 0.7 % (0-5); Hematocrit 40.6 % (40-54); Hemoglobin 13.2 g/dL (13.0-16.5); Lymphocyte # 1.96 X10^3/ul (0.83-4.51); Mean Corp Hgb Conc 32.5 g/dL (32-36); Mean Corpuscular Hgb 29.9 pg (27.0-32.0); Mean Corpuscular Volume 92.1 fL (80-94); Mean Platelet Vol. 10.9 fl (6.2-12.0); Monocyte# 0.68 X10^3/uL; Monocyte% 9.4 % (0-10); NRBC Flagged by Analyzer 0 % (0-5); Neutrophil # 4.49 X10^3/uL (2.7-7.7); Neutrophil % 61.9 % (47-70); Platelet Count 213 K/mm3 (150-450); RBC Distribution Width CV 12.8 % (11.6-14.6); RBC Distribution Width SD 42.8 fl (35.1-43.9); Red Blood Count 4.41 M/mm3 (4.6-6.2); White Blood Count 7.3 K/mm3 (4.4-11.0)
== END | disposition home or self-care (01) ==
LOC: OLS.SANC 04:00
PROVIDERS: Referring Provider Internal Medicine; Visit Provider Internal Medicine
DX: Z79.899 Other long term (current) drug therapy (principal)
CPT/HCPCS: 36415; 85025

== ENCOUNTER → 2022-10-31 | Outpatient (REF) | payer MEDICAID, SELFPAY ==
[2022-10-31 09:05] LABS: Absolute Lymphocyte Count 1.97 X10^3/uL (0.83-4.51); Absolute Neutrophil Count 6.7 X10^3/uL (2.0-7.7); Basophil# 0.05 X10^3/uL; Basophil% 0.5 % (0-1); Eosinophil# 0.06 X10^3/uL; Eosinophils% 0.6 % (0-5); Hematocrit 41.3 % (40-54); Hemoglobin 13.5 g/dL (13.0-16.5); Lymphocyte # 1.97 X10^3/ul (0.83-4.51); Lymphocyte % 20.5 % (19-41); Mean Corp Hgb Conc 32.7 g/dL (32-36); Mean Corpuscular Hgb 30.2 pg (27.0-32.0); Mean Corpuscular Volume 92.4 fL (80-94); Mean Platelet Vol. 11.1 fl (6.2-12.0); Monocyte# 0.76 X10^3/uL; Monocyte% 7.9 % (0-10); NRBC Flagged by Analyzer 0 % (0-5); Neutrophil % 69.9 % (47-70); Platelet Count 221 K/mm3 (150-450); RBC Distribution Width CV 12.7 % (11.6-14.6); RBC Distribution Width SD 42.9 fl (35.1-43.9); Red Blood Count 4.47 M/mm3 (4.6-6.2); White Blood Count 9.6 K/mm3 (4.4-11.0)
== END | disposition home or self-care (01) ==
LOC: OLS.SANC 05:00
PROVIDERS: Visit Provider Internal Medicine
DX: N40.0 Benign prostatic hyperplasia without lower urinary tract symptoms (principal); F20.9 Schizophrenia, unspecified; J95.821 Acute postprocedural respiratory failure
CPT/HCPCS: 36415; 85025

== ENCOUNTER → 2022-11-07 05:00 | Outpatient (REF) | payer MEDICAID, SELFPAY ==
[2022-11-07 08:05] LABS: Absolute Lymphocyte Count 1.99 X10^3/uL (0.83-4.51); Absolute Neutrophil Count 5.1 X10^3/uL (2.0-7.7); Basophil# 0.06 X10^3/uL; Basophil% 0.8 % (0-1); Eosinophil# 0.04 X10^3/uL; Eosinophils% 0.5 % (0-5); Hematocrit 40.7 % (40-54); Hemoglobin 13.7 g/dL (13.0-16.5); Lymphocyte # 1.99 X10^3/ul (0.83-4.51); Mean Corp Hgb Conc 33.7 g/dL (32-36); Mean Corpuscular Hgb 30.8 pg (27.0-32.0); Mean Corpuscular Volume 91.5 fL (80-94); Mean Platelet Vol. 10.7 fl (6.2-12.0); Monocyte# 0.75 X10^3/uL; Monocyte% 9.4 % (0-10); NRBC Flagged by Analyzer 0 % (0-5); Neutrophil # 5.09 X10^3/uL (2.7-7.7); Platelet Count 220 K/mm3 (150-450); RBC Distribution Width CV 12.8 % (11.6-14.6); RBC Distribution Width SD 42.4 fl (35.1-43.9); Red Blood Count 4.45 M/mm3 (4.6-6.2)
== END ==
LOC: OLS.SANC 05:00
PROVIDERS: Visit Provider Internal Medicine
DX: Z79.899 Other long term (current) drug therapy (principal)
CPT/HCPCS: 36415; 85025

== ENCOUNTER → 2022-11-14 | Outpatient (REF) | payer MEDICAID, SELFPAY ==
[2022-11-14 09:19] LABS: Absolute Lymphocyte Count 1.82 X10^3/uL (0.83-4.51); Absolute Neutrophil Count 4.7 X10^3/uL (2.0-7.7); Basophil# 0.03 X10^3/uL; Basophil% 0.4 % (0-1); Eosinophil# 0.03 X10^3/uL; Eosinophils% 0.4 % (0-5); Hematocrit 40.6 % (40-54); Hemoglobin 13.6 g/dL (13.0-16.5); Lymphocyte # 1.82 X10^3/ul (0.83-4.51); Lymphocyte % 25.6 % (19-41); Mean Corp Hgb Conc 33.5 g/dL (32-36); Mean Corpuscular Hgb 31.3 pg (27.0-32.0); Mean Corpuscular Volume 93.3 fL (80-94); Mean Platelet Vol. 10.9 fl (6.2-12.0); Monocyte# 0.47 X10^3/uL; Monocyte% 6.6 % (0-10); NRBC Flagged by Analyzer 0 % (0-5); Neutrophil # 4.72 X10^3/uL (2.7-7.7); Neutrophil % 66.6 % (47-70); Platelet Count 202 K/mm3 (150-450); RBC Distribution Width CV 12.8 % (11.6-14.6); RBC Distribution Width SD 43.9 fl (35.1-43.9); Red Blood Count 4.35 M/mm3 (4.6-6.2); White Blood Count 7.1 K/mm3 (4.4-11.0)
[2022-11-14 09:46] LABS: Anion Gap 3 (5-15); BUN 18 mg/dL (7-18); Calcium,Total 8.2 mg/dL (8.5-10.1); Chloride 107 mmol/L (98-107); Creatinine, Serum 0.69 mg/dL (0.70-1.30); EST Glomerular Filtration Rate 122 mL/min (>60); Est Glom Filt Rate - Afr Amer 147 mL/min (>60); Glucose 121 mg/dL (74-106); Potassium 3.7 mmol/L (3.5-5.1); Sodium Level 141 mmol/L (136-145)
== END | disposition home or self-care (01) ==
LOC: OLS.SANC 05:00
PROVIDERS: Visit Provider Internal Medicine
DX: N40.0 Benign prostatic hyperplasia without lower urinary tract symptoms (principal); F20.9 Schizophrenia, unspecified; J95.821 Acute postprocedural respiratory failure
CPT/HCPCS: 36415; 80048; 85025

== ENCOUNTER → 2022-11-21 | Outpatient (REF) | payer MEDICAID, SELFPAY ==
[2022-11-21 07:19] LABS: Absolute Lymphocyte Count 2.32 X10^3/uL (0.83-4.51); Basophil# 0.05 X10^3/uL; Basophil% 0.6 % (0-1); Eosinophil# 0.06 X10^3/uL; Eosinophils% 0.7 % (0-5); Hematocrit 43.3 % (40-54); Hemoglobin 14.3 g/dL (13.0-16.5); Lymphocyte # 2.32 X10^3/ul (0.83-4.51); Lymphocyte % 28.2 % (19-41); Mean Corpuscular Hgb 30.4 pg (27.0-32.0); Mean Corpuscular Volume 91.9 fL (80-94); Mean Platelet Vol. 10.4 fl (6.2-12.0); Monocyte# 0.76 X10^3/uL; Monocyte% 9.2 % (0-10); NRBC Flagged by Analyzer 0 % (0-5); Neutrophil # 4.99 X10^3/uL (2.7-7.7); Neutrophil % 60.6 % (47-70); Platelet Count 219 K/mm3 (150-450); RBC Distribution Width CV 12.8 % (11.6-14.6); RBC Distribution Width SD 43.1 fl (35.1-43.9); Red Blood Count 4.71 M/mm3 (4.6-6.2); White Blood Count 8.2 K/mm3 (4.4-11.0)
== END | disposition home or self-care (01) ==
LOC: OLS.SANC 05:00
PROVIDERS: Visit Provider Internal Medicine
DX: Z79.899 Other long term (current) drug therapy (principal)
CPT/HCPCS: 36415; 85025

== ENCOUNTER → 2022-11-28 | Outpatient (REF) | payer MEDICAID, SELFPAY ==
[2022-11-28 09:20] LABS: Absolute Lymphocyte Count 2.07 X10^3/uL (0.83-4.51); Absolute Neutrophil Count 5.1 X10^3/uL (2.0-7.7); Basophil# 0.03 X10^3/uL; Basophil% 0.4 % (0-1); Eosinophil# 0.05 X10^3/uL; Eosinophils% 0.6 % (0-5); Hematocrit 42.5 % (40-54); Hemoglobin 13.7 g/dL (13.0-16.5); Lymphocyte # 2.07 X10^3/ul (0.83-4.51); Lymphocyte % 26.2 % (19-41); Mean Corp Hgb Conc 32.2 g/dL (32-36); Mean Corpuscular Hgb 30.2 pg (27.0-32.0); Mean Corpuscular Volume 93.6 fL (80-94); Mean Platelet Vol. 10.6 fl (6.2-12.0); Monocyte# 0.61 X10^3/uL; Monocyte% 7.7 % (0-10); NRBC Flagged by Analyzer 0 % (0-5); Neutrophil % 64.6 % (47-70); Platelet Count 201 K/mm3 (150-450); RBC Distribution Width CV 12.7 % (11.6-14.6); RBC Distribution Width SD 43.5 fl (35.1-43.9); Red Blood Count 4.54 M/mm3 (4.6-6.2); White Blood Count 7.9 K/mm3 (4.4-11.0)
== END | disposition home or self-care (01) ==
LOC: OLS.SANC 04:00
PROVIDERS: Referring Provider Internal Medicine; Visit Provider Internal Medicine
DX: F20.9 Schizophrenia, unspecified (principal); Z79.899 Other long term (current) drug therapy
CPT/HCPCS: 36415; 85025

== ENCOUNTER → 2022-12-05 | Outpatient (REF) | payer MEDICAID, SELFPAY ==
[2022-12-05 09:30] LABS: Absolute Lymphocyte Count 1.94 X10^3/uL (0.83-4.51); Absolute Neutrophil Count 4.1 X10^3/uL (2.0-7.7); Basophil# 0.03 X10^3/uL; Basophil% 0.4 % (0-1); Eosinophil# 0.06 X10^3/uL; Eosinophils% 0.9 % (0-5); Hematocrit 39.8 % (40-54); Hemoglobin 13.3 g/dL (13.0-16.5); Lymphocyte # 1.94 X10^3/ul (0.83-4.51); Lymphocyte % 28.8 % (19-41); Mean Corp Hgb Conc 33.4 g/dL (32-36); Mean Corpuscular Hgb 30.3 pg (27.0-32.0); Mean Corpuscular Volume 90.7 fL (80-94); Mean Platelet Vol. 10.8 fl (6.2-12.0); Monocyte# 0.56 X10^3/uL; Monocyte% 8.3 % (0-10); NRBC Flagged by Analyzer 0 % (0-5); Neutrophil # 4.12 X10^3/uL (2.7-7.7); Neutrophil % 61.2 % (47-70); Platelet Count 208 K/mm3 (150-450); RBC Distribution Width CV 12.6 % (11.6-14.6); RBC Distribution Width SD 41.8 fl (35.1-43.9); Red Blood Count 4.39 M/mm3 (4.6-6.2); White Blood Count 6.7 K/mm3 (4.4-11.0)
== END | disposition home or self-care (01) ==
LOC: OLS.SANC 05:00
PROVIDERS: Visit Provider Internal Medicine
DX: Z79.899 Other long term (current) drug therapy (principal)
CPT/HCPCS: 36415; 85025

== ENCOUNTER → 2022-12-12 | Outpatient (REF) | payer MEDICAID, SELFPAY ==
[2022-12-12 09:37] LABS: Absolute Lymphocyte Count 2.33 X10^3/uL (0.83-4.51); Absolute Neutrophil Count 5.8 X10^3/uL (2.0-7.7); Basophil# 0.05 X10^3/uL; Basophil% 0.6 % (0-1); Eosinophil# 0.08 X10^3/uL; Eosinophils% 0.9 % (0-5); Hematocrit 42.6 % (40-54); Hemoglobin 13.9 g/dL (13.0-16.5); Lymphocyte # 2.33 X10^3/ul (0.83-4.51); Lymphocyte % 25.6 % (19-41); Mean Corp Hgb Conc 32.6 g/dL (32-36); Mean Corpuscular Hgb 30.8 pg (27.0-32.0); Mean Corpuscular Volume 94.2 fL (80-94); Mean Platelet Vol. 10.9 fl (6.2-12.0); Monocyte# 0.83 X10^3/uL; Monocyte% 9.1 % (0-10); NRBC Flagged by Analyzer 0 % (0-5); Neutrophil # 5.77 X10^3/uL (2.7-7.7); Neutrophil % 63.5 % (47-70); Platelet Count 211 K/mm3 (150-450); RBC Distribution Width CV 12.8 % (11.6-14.6); RBC Distribution Width SD 44.3 fl (35.1-43.9); Red Blood Count 4.52 M/mm3 (4.6-6.2); White Blood Count 9.1 K/mm3 (4.4-11.0)
== END | disposition home or self-care (01) ==
LOC: OLS.SANC 05:00
PROVIDERS: Visit Provider Internal Medicine
DX: Z79.899 Other long term (current) drug therapy (principal)
CPT/HCPCS: 36415; 85025

== ENCOUNTER → 2022-12-19 | Outpatient (REF) | payer MEDICAID, SELFPAY ==
[2022-12-19 09:12] LABS: Absolute Lymphocyte Count 2.24 X10^3/uL (0.83-4.51); Absolute Neutrophil Count 5.7 X10^3/uL (2.0-7.7); Basophil# 0.03 X10^3/uL; Basophil% 0.3 % (0-1); Eosinophil# 0.07 X10^3/uL; Eosinophils% 0.8 % (0-5); Hematocrit 41.2 % (40-54); Hemoglobin 13.5 g/dL (13.0-16.5); Lymphocyte # 2.24 X10^3/ul (0.83-4.51); Lymphocyte % 25.1 % (19-41); Mean Corp Hgb Conc 32.8 g/dL (32-36); Mean Corpuscular Hgb 30.4 pg (27.0-32.0); Mean Corpuscular Volume 92.8 fL (80-94); Monocyte# 0.84 X10^3/uL; Monocyte% 9.4 % (0-10); NRBC Flagged by Analyzer 0 % (0-5); Neutrophil # 5.71 X10^3/uL (2.7-7.7); Neutrophil % 64.1 % (47-70); Platelet Count 194 K/mm3 (150-450); RBC Distribution Width CV 12.7 % (11.6-14.6); RBC Distribution Width SD 43.2 fl (35.1-43.9); Red Blood Count 4.44 M/mm3 (4.6-6.2); White Blood Count 8.9 K/mm3 (4.4-11.0)
== END | disposition home or self-care (01) ==
LOC: OLS.SANC 05:00
PROVIDERS: Visit Provider Internal Medicine
DX: Z79.899 Other long term (current) drug therapy (principal)
CPT/HCPCS: 36415; 85025

== ENCOUNTER → 2022-12-26 | Outpatient (REF) | payer MEDICAID, SELFPAY ==
[2022-12-26 08:48] LABS: Absolute Neutrophil Count 6.2 X10^3/uL (2.0-7.7); Basophil# 0.04 X10^3/uL; Basophil% 0.4 % (0-1); Eosinophil# 0.05 X10^3/uL; Eosinophils% 0.6 % (0-5); Hematocrit 42.7 % (40-54); Lymphocyte % 20.2 % (19-41); Mean Corp Hgb Conc 32.8 g/dL (32-36); Mean Corpuscular Hgb 30.6 pg (27.0-32.0); Mean Corpuscular Volume 93.2 fL (80-94); Mean Platelet Vol. 10.8 fl (6.2-12.0); Monocyte# 0.77 X10^3/uL; Monocyte% 8.6 % (0-10); NRBC Flagged by Analyzer 0 % (0-5); Neutrophil # 6.23 X10^3/uL (2.7-7.7); Neutrophil % 69.8 % (47-70); Platelet Count 200 K/mm3 (150-450); RBC Distribution Width CV 12.5 % (11.6-14.6); RBC Distribution Width SD 42.5 fl (35.1-43.9); Red Blood Count 4.58 M/mm3 (4.6-6.2); White Blood Count 8.9 K/mm3 (4.4-11.0)
== END | disposition home or self-care (01) ==
LOC: OLS.SANC 04:00
PROVIDERS: Referring Provider Internal Medicine; Visit Provider Internal Medicine
DX: N40.0 Benign prostatic hyperplasia without lower urinary tract symptoms (principal); J95.821 Acute postprocedural respiratory failure; Z79.899 Other long term (current) drug therapy
CPT/HCPCS: 36415; 85025

== ENCOUNTER → 2023-01-03 | Outpatient (REF) | payer MEDICAID, SELFPAY ==
[2023-01-03 08:50] LABS: Absolute Lymphocyte Count 2.18 X10^3/uL (0.83-4.51); Absolute Neutrophil Count 5.4 X10^3/uL (2.0-7.7); Basophil# 0.05 X10^3/uL; Basophil% 0.6 % (0-1); Eosinophil# 0.04 X10^3/uL; Eosinophils% 0.5 % (0-5); Hematocrit 42.6 % (40-54); Hemoglobin 13.9 g/dL (13.0-16.5); Lymphocyte # 2.18 X10^3/ul (0.83-4.51); Lymphocyte % 25.9 % (19-41); Mean Corp Hgb Conc 32.6 g/dL (32-36); Mean Corpuscular Hgb 30.3 pg (27.0-32.0); Mean Corpuscular Volume 92.8 fL (80-94); Monocyte% 8.3 % (0-10); NRBC Flagged by Analyzer 0 % (0-5); Neutrophil % 64.2 % (47-70); Platelet Count 200 K/mm3 (150-450); RBC Distribution Width CV 12.6 % (11.6-14.6); RBC Distribution Width SD 42.5 fl (35.1-43.9); Red Blood Count 4.59 M/mm3 (4.6-6.2); White Blood Count 8.4 K/mm3 (4.4-11.0)
[2023-01-03 09:02] LABS: PSA,Total - Annual Screen 3.37 ng/mL (0.00-4.00)
== END | disposition home or self-care (01) ==
LOC: OLS.SANC 04:00
PROVIDERS: Visit Provider Internal Medicine
DX: Z79.899 Other long term (current) drug therapy (principal)
CPT/HCPCS: 36415; 84153; 85025; G0103

== ENCOUNTER → 2023-01-09 | Outpatient (REF) | payer MEDICAID, SELFPAY ==
[2023-01-09 09:34] LABS: Absolute Lymphocyte Count 2.41 X10^3/uL (0.83-4.51); Absolute Neutrophil Count 5.4 X10^3/uL (2.0-7.7); Basophil# 0.06 X10^3/uL; Basophil% 0.7 % (0-1); Eosinophil# 0.07 X10^3/uL; Eosinophils% 0.8 % (0-5); Hematocrit 42.2 % (40-54); Hemoglobin 13.8 g/dL (13.0-16.5); Lymphocyte # 2.41 X10^3/ul (0.83-4.51); Mean Corp Hgb Conc 32.7 g/dL (32-36); Mean Corpuscular Hgb 30.3 pg (27.0-32.0); Mean Corpuscular Volume 92.5 fL (80-94); Mean Platelet Vol. 10.8 fl (6.2-12.0); Monocyte# 0.95 X10^3/uL; Monocyte% 10.7 % (0-10); NRBC Flagged by Analyzer 0 % (0-5); Neutrophil % 60.5 % (47-70); Platelet Count 209 K/mm3 (150-450); RBC Distribution Width CV 12.5 % (11.6-14.6); RBC Distribution Width SD 42.7 fl (35.1-43.9); Red Blood Count 4.56 M/mm3 (4.6-6.2); White Blood Count 8.9 K/mm3 (4.4-11.0)
== END | disposition home or self-care (01) ==
LOC: OLS.SANC 05:00
PROVIDERS: Visit Provider Internal Medicine
DX: Z79.899 Other long term (current) drug therapy (principal)
CPT/HCPCS: 36415; 85025

== ENCOUNTER → 2023-01-16 | Outpatient (REF) | payer MEDICAID, SELFPAY ==
[2023-01-16 08:10] LABS: Absolute Neutrophil Count 7.2 X10^3/uL (2.0-7.7); Basophil# 0.04 X10^3/uL; Basophil% 0.4 % (0-1); Eosinophil# 0.04 X10^3/uL; Eosinophils% 0.4 % (0-5); Hematocrit 44.1 % (40-54); Hemoglobin 14.1 g/dL (13.0-16.5); Lymphocyte % 18.4 % (19-41); Mean Corpuscular Hgb 29.6 pg (27.0-32.0); Mean Corpuscular Volume 92.5 fL (80-94); Mean Platelet Vol. 10.6 fl (6.2-12.0); Monocyte# 0.67 X10^3/uL; Monocyte% 6.9 % (0-10); NRBC Flagged by Analyzer 0 % (0-5); Neutrophil # 7.19 X10^3/uL (2.7-7.7); Neutrophil % 73.5 % (47-70); Platelet Count 221 K/mm3 (150-450); RBC Distribution Width CV 12.4 % (11.6-14.6); RBC Distribution Width SD 41.8 fl (35.1-43.9); Red Blood Count 4.77 M/mm3 (4.6-6.2); White Blood Count 9.8 K/mm3 (4.4-11.0)
== END | disposition home or self-care (01) ==
LOC: OLS.SANC 05:00
PROVIDERS: Visit Provider Internal Medicine
DX: Z79.899 Other long term (current) drug therapy (principal)
CPT/HCPCS: 36415; 85025

== ENCOUNTER → 2023-01-23 | Outpatient (REF) | payer MEDICAID, SELFPAY ==
[2023-01-23 09:09] LABS: Absolute Lymphocyte Count 2.32 X10^3/uL (0.83-4.51); Absolute Neutrophil Count 5.3 X10^3/uL (2.0-7.7); Basophil# 0.05 X10^3/uL; Basophil% 0.6 % (0-1); Eosinophil# 0.03 X10^3/uL; Eosinophils% 0.4 % (0-5); Hematocrit 41.8 % (40-54); Hemoglobin 13.6 g/dL (13.0-16.5); Lymphocyte # 2.32 X10^3/ul (0.83-4.51); Lymphocyte % 27.5 % (19-41); Mean Corp Hgb Conc 32.5 g/dL (32-36); Mean Corpuscular Hgb 30.3 pg (27.0-32.0); Mean Corpuscular Volume 93.1 fL (80-94); Mean Platelet Vol. 10.9 fl (6.2-12.0); Monocyte# 0.69 X10^3/uL; Monocyte% 8.2 % (0-10); NRBC Flagged by Analyzer 0 % (0-5); Neutrophil % 62.7 % (47-70); Platelet Count 220 K/mm3 (150-450); RBC Distribution Width CV 12.6 % (11.6-14.6); RBC Distribution Width SD 42.7 fl (35.1-43.9); Red Blood Count 4.49 M/mm3 (4.6-6.2); White Blood Count 8.4 K/mm3 (4.4-11.0)
== END | disposition home or self-care (01) ==
LOC: OLS.SANC 04:00
PROVIDERS: Referring Provider Internal Medicine; Visit Provider Internal Medicine
DX: F20.89 Other schizophrenia (principal); Z79.899 Other long term (current) drug therapy
CPT/HCPCS: 36415; 85025

== ENCOUNTER → 2023-01-30 | Outpatient (REF) | payer MEDICAID, SELFPAY ==
[2023-01-30 07:18] LABS: Bacteria 0 SEEN /hpf (None Seen); Mucous, Urine 0 SEEN /hpf (<or=2+); Red Blood Cells-Urine 0 SEEN /hpf (0-5); White Blood Cells 0 SEEN /hpf (0-5)
[2023-01-30 07:23] LABS: Absolute Lymphocyte Count 1.91 X10^3/uL (0.83-4.51); Basophil# 0.04 X10^3/uL; Basophil% 0.5 % (0-1); Eosinophil# 0.04 X10^3/uL; Eosinophils% 0.5 % (0-5); Hematocrit 41.1 % (40-54); Hemoglobin 13.5 g/dL (13.0-16.5); Lymphocyte # 1.91 X10^3/ul (0.83-4.51); Lymphocyte % 22.1 % (19-41); Mean Corp Hgb Conc 32.8 g/dL (32-36); Mean Corpuscular Volume 91.3 fL (80-94); Mean Platelet Vol. 11.1 fl (6.2-12.0); Monocyte# 0.62 X10^3/uL; Monocyte% 7.2 % (0-10); NRBC Flagged by Analyzer 0 % (0-5); Neutrophil # 6.01 X10^3/uL (2.7-7.7); Neutrophil % 69.4 % (47-70); Platelet Count 205 K/mm3 (150-450); RBC Distribution Width CV 12.6 % (11.6-14.6); RBC Distribution Width SD 41.4 fl (35.1-43.9); White Blood Count 8.7 K/mm3 (4.4-11.0)
[2023-01-30 07:40] LABS: PSA,Total - Annual Screen 4.18 ng/mL (0.00-4.00)
[2023-01-30 07:54] LABS: Color, Urine Yellow (Yellow); Glucose, Dipstick Normal (Normal); Ketone-Dipstick Negative (Negative); Leukocyte Esterase-Dipstick Negative /ul (Negative); Nitrite-Dipstick Negative (Negative); Occult Blood-Urine Negative /ul (Negative); Protein-Dipstick Negative (Negative); Urine Bilirubin Dipstick Negative (Negative); Urine Clarity Clear (Clear); Urine Urobilinogen Normal (Normal)
[2023-01-30 08:09] LABS: Squamous Epithelial Cells - UA 0-5 SEEN /hpf (0-5)
== END | disposition home or self-care (01) ==
LOC: OLS.SANC 05:00
PROVIDERS: Visit Provider Internal Medicine
DX: N39.0 Urinary tract infection, site not specified (principal); J95.821 Acute postprocedural respiratory failure; Z79.899 Other long term (current) drug therapy; Z12.5 Encounter for screening for malignant neoplasm of prostate
CPT/HCPCS: 36415; 81001; 84153; 85025; 87086; 87088; G0103

== ENCOUNTER → 2023-02-06 | Outpatient (REF) | payer MEDICAID, SELFPAY ==
[2023-02-06 09:38] LABS: Absolute Lymphocyte Count 2.28 X10^3/uL (0.83-4.51); Absolute Neutrophil Count 5.5 X10^3/uL (2.0-7.7); Basophil# 0.04 X10^3/uL; Basophil% 0.5 % (0-1); Eosinophil# 0.06 X10^3/uL; Eosinophils% 0.7 % (0-5); Hematocrit 44.5 % (40-54); Hemoglobin 14.1 g/dL (13.0-16.5); Lymphocyte # 2.28 X10^3/ul (0.83-4.51); Lymphocyte % 26.4 % (19-41); Mean Corp Hgb Conc 31.7 g/dL (32-36); Mean Corpuscular Hgb 29.9 pg (27.0-32.0); Mean Corpuscular Volume 94.5 fL (80-94); Monocyte# 0.71 X10^3/uL; Monocyte% 8.2 % (0-10); NRBC Flagged by Analyzer 0 % (0-5); Neutrophil # 5.51 X10^3/uL (2.7-7.7); Neutrophil % 63.7 % (47-70); Platelet Count 196 K/mm3 (150-450); RBC Distribution Width CV 12.7 % (11.6-14.6); RBC Distribution Width SD 43.5 fl (35.1-43.9); Red Blood Count 4.71 M/mm3 (4.6-6.2); White Blood Count 8.6 K/mm3 (4.4-11.0)
== END | disposition home or self-care (01) ==
LOC: OLS.SANC 05:00
PROVIDERS: Visit Provider Internal Medicine
DX: F20.9 Schizophrenia, unspecified (principal); Z79.899 Other long term (current) drug therapy
CPT/HCPCS: 36415; 85025

== ENCOUNTER → 2023-02-13 | Outpatient (REF) | payer MEDICAID, SELFPAY ==
[2023-02-13 09:15] LABS: Absolute Lymphocyte Count 2.01 X10^3/uL (0.83-4.51); Absolute Neutrophil Count 4.7 X10^3/uL (2.0-7.7); Basophil# 0.05 X10^3/uL; Basophil% 0.7 % (0-1); Eosinophil# 0.04 X10^3/uL; Eosinophils% 0.5 % (0-5); Hematocrit 41.3 % (40-54); Hemoglobin 13.6 g/dL (13.0-16.5); Lymphocyte # 2.01 X10^3/ul (0.83-4.51); Mean Corp Hgb Conc 32.9 g/dL (32-36); Mean Corpuscular Hgb 30.5 pg (27.0-32.0); Mean Corpuscular Volume 92.6 fL (80-94); Mean Platelet Vol. 10.7 fl (6.2-12.0); Monocyte% 8.1 % (0-10); NRBC Flagged by Analyzer 0 % (0-5); Neutrophil # 4.71 X10^3/uL (2.7-7.7); Neutrophil % 63.3 % (47-70); Platelet Count 187 K/mm3 (150-450); RBC Distribution Width CV 12.6 % (11.6-14.6); RBC Distribution Width SD 42.7 fl (35.1-43.9); Red Blood Count 4.46 M/mm3 (4.6-6.2); White Blood Count 7.4 K/mm3 (4.4-11.0)
== END | disposition home or self-care (01) ==
LOC: OLS.SANC 04:00
PROVIDERS: Referring Provider Internal Medicine; Visit Provider Internal Medicine
DX: Z79.899 Other long term (current) drug therapy (principal)
CPT/HCPCS: 36415; 85025

== ENCOUNTER → 2023-02-20 | Outpatient (REF) | payer MEDICAID, SELFPAY ==
[2023-02-20 09:00] LABS: Absolute Lymphocyte Count 2.23 X10^3/uL (0.83-4.51); Absolute Neutrophil Count 5.9 X10^3/uL (2.0-7.7); Basophil# 0.03 X10^3/uL; Basophil% 0.3 % (0-1); Eosinophil# 0.06 X10^3/uL; Eosinophils% 0.7 % (0-5); Hematocrit 40.4 % (40-54); Hemoglobin 13.3 g/dL (13.0-16.5); Lymphocyte # 2.23 X10^3/ul (0.83-4.51); Lymphocyte % 24.7 % (19-41); Mean Corp Hgb Conc 32.9 g/dL (32-36); Mean Corpuscular Hgb 29.8 pg (27.0-32.0); Mean Corpuscular Volume 90.6 fL (80-94); Mean Platelet Vol. 10.7 fl (6.2-12.0); Monocyte# 0.72 X10^3/uL; NRBC Flagged by Analyzer 0 % (0-5); Neutrophil # 5.94 X10^3/uL (2.7-7.7); Neutrophil % 65.7 % (47-70); Platelet Count 220 K/mm3 (150-450); RBC Distribution Width CV 12.8 % (11.6-14.6); RBC Distribution Width SD 41.9 fl (35.1-43.9); Red Blood Count 4.46 M/mm3 (4.6-6.2)
== END | disposition home or self-care (01) ==
LOC: OLS.SANC 05:00
PROVIDERS: Visit Provider Internal Medicine
DX: F20.9 Schizophrenia, unspecified (principal); Z79.899 Other long term (current) drug therapy
CPT/HCPCS: 36415; 85025

== ENCOUNTER → 2023-02-27 | Outpatient (REF) | payer MEDICAID, SELFPAY ==
[2023-02-27 08:37] LABS: Absolute Lymphocyte Count 2.13 X10^3/uL (0.83-4.51); Absolute Neutrophil Count 5.1 X10^3/uL (2.0-7.7); Basophil# 0.05 X10^3/uL; Basophil% 0.6 % (0-1); Eosinophil# 0.05 X10^3/uL; Eosinophils% 0.6 % (0-5); Hematocrit 40.8 % (40-54); Hemoglobin 13.7 g/dL (13.0-16.5); Lymphocyte # 2.13 X10^3/ul (0.83-4.51); Lymphocyte % 26.4 % (19-41); Mean Corp Hgb Conc 33.6 g/dL (32-36); Mean Corpuscular Hgb 30.2 pg (27.0-32.0); Mean Corpuscular Volume 89.9 fL (80-94); Mean Platelet Vol. 10.8 fl (6.2-12.0); Monocyte% 8.7 % (0-10); NRBC Flagged by Analyzer 0 % (0-5); Neutrophil % 63.3 % (47-70); Platelet Count 182 K/mm3 (150-450); RBC Distribution Width CV 12.5 % (11.6-14.6); Red Blood Count 4.54 M/mm3 (4.6-6.2); White Blood Count 8.1 K/mm3 (4.4-11.0)
== END | disposition home or self-care (01) ==
LOC: OLS.SANC 05:00
PROVIDERS: Visit Provider Internal Medicine
DX: Z79.899 Other long term (current) drug therapy (principal)
CPT/HCPCS: 36415; 85025

== ENCOUNTER → 2023-03-06 | Outpatient (REF) | payer MEDICAID, SELFPAY ==
[2023-03-06 10:21] LABS: Absolute Neutrophil Count 5.5 X10^3/uL (2.0-7.7); Basophil# 0.04 X10^3/uL; Basophil% 0.5 % (0-1); Eosinophil# 0.04 X10^3/uL; Eosinophils% 0.5 % (0-5); Hematocrit 43.1 % (40-54); Lymphocyte % 22.3 % (19-41); Mean Corp Hgb Conc 32.5 g/dL (32-36); Mean Corpuscular Hgb 29.9 pg (27.0-32.0); Mean Corpuscular Volume 91.9 fL (80-94); Mean Platelet Vol. 10.9 fl (6.2-12.0); Monocyte# 0.66 X10^3/uL; Monocyte% 8.2 % (0-10); NRBC Flagged by Analyzer 0 % (0-5); Platelet Count 232 K/mm3 (150-450); RBC Distribution Width CV 12.9 % (11.6-14.6); RBC Distribution Width SD 42.5 fl (35.1-43.9); Red Blood Count 4.69 M/mm3 (4.6-6.2); White Blood Count 8.1 K/mm3 (4.4-11.0)
[2023-03-06 10:40] LABS: ALB/GLOB Ratio 0.9 RATIO (0.9-2.4); AST(SGOT) 10 U/L (15-37); Alanine Aminotransfer ALT/SGPT 20 U/L (16-61); Alkaline Phosphatase 120 U/L (45-117); Anion Gap 4 (5-15); BUN 17 mg/dL (7-18); BUN/Creat Ratio 27.1 RATIO (10-20); Calcium,Total 8.2 mg/dL (8.5-10.1); Chloride 107 mmol/L (98-107); Cholesterol 118 mg/dL (200); Creatinine, Serum 0.63 mg/dL (0.70-1.30); EST Glomerular Filtration Rate 136 mL/min (>60); Est Glom Filt Rate - Afr Amer 165 mL/min (>60); Globulin 3.3 g/dL (2.2-4.2); Glucose 107 mg/dL (74-106); High Density Lipoprotein 25 mg/dL; Potassium 3.8 mmol/L (3.5-5.1); Protein, Total 6.3 g/dL (6.4-8.2); Sodium Level 141 mmol/L (136-145); Triglycerides 185 mg/dL; Very Low Density Lipoprotein 37 mg/dL (5-40)
== END | disposition home or self-care (01) ==
LOC: OLS.SANC 04:00
PROVIDERS: Referring Provider Internal Medicine; Visit Provider Internal Medicine
DX: F20.9 Schizophrenia, unspecified (principal)
CPT/HCPCS: 36415; 80053; 80061; 85025

== ENCOUNTER → 2023-03-13 | Outpatient (REF) | payer MEDICAID, SELFPAY ==
[2023-03-13 09:42] LABS: Absolute Lymphocyte Count 2.36 X10^3/uL (0.83-4.51); Absolute Neutrophil Count 5.2 X10^3/uL (2.0-7.7); Basophil# 0.04 X10^3/uL; Basophil% 0.5 % (0-1); Eosinophil# 0.04 X10^3/uL; Eosinophils% 0.5 % (0-5); Hematocrit 42.5 % (40-54); Hemoglobin 13.4 g/dL (13.0-16.5); Lymphocyte # 2.36 X10^3/ul (0.83-4.51); Lymphocyte % 27.7 % (19-41); Mean Corp Hgb Conc 31.5 g/dL (32-36); Mean Corpuscular Hgb 29.5 pg (27.0-32.0); Mean Corpuscular Volume 93.4 fL (80-94); Mean Platelet Vol. 10.6 fl (6.2-12.0); Monocyte# 0.81 X10^3/uL; Monocyte% 9.5 % (0-10); NRBC Flagged by Analyzer 0 % (0-5); Neutrophil # 5.22 X10^3/uL (2.7-7.7); Neutrophil % 61.3 % (47-70); Platelet Count 200 K/mm3 (150-450); RBC Distribution Width SD 44.1 fl (35.1-43.9); Red Blood Count 4.55 M/mm3 (4.6-6.2); White Blood Count 8.5 K/mm3 (4.4-11.0)
== END | disposition home or self-care (01) ==
LOC: OLS.SANC 05:00
PROVIDERS: Visit Provider Internal Medicine
DX: Z79.899 Other long term (current) drug therapy (principal)
CPT/HCPCS: 36415; 85025

== ENCOUNTER → 2023-03-16 | Outpatient (REF) | payer MEDICAID, SELFPAY ==
[2023-03-16 09:15] LABS: Erythrocyte Sedimentation Rate 3 mm/hr (0-20)
== END | disposition home or self-care (01) ==
LOC: OLS.SANC 05:00
PROVIDERS: Visit Provider Internal Medicine
DX: Z79.899 Other long term (current) drug therapy (principal)
CPT/HCPCS: 36415; 85652

== ENCOUNTER → 2023-03-20 | Outpatient (REF) | payer MEDICAID, SELFPAY ==
[2023-03-20 07:59] LABS: Absolute Lymphocyte Count 1.89 X10^3/uL (0.83-4.51); Absolute Neutrophil Count 4.8 X10^3/uL (2.0-7.7); Basophil# 0.04 X10^3/uL; Basophil% 0.5 % (0-1); Eosinophil# 0.03 X10^3/uL; Eosinophils% 0.4 % (0-5); Hematocrit 42.1 % (40-54); Hemoglobin 13.7 g/dL (13.0-16.5); Lymphocyte # 1.89 X10^3/ul (0.83-4.51); Lymphocyte % 25.7 % (19-41); Mean Corp Hgb Conc 32.5 g/dL (32-36); Mean Corpuscular Hgb 29.6 pg (27.0-32.0); Mean Corpuscular Volume 90.9 fL (80-94); Mean Platelet Vol. 10.7 fl (6.2-12.0); Monocyte% 8.2 % (0-10); NRBC Flagged by Analyzer 0 % (0-5); Neutrophil # 4.77 X10^3/uL (2.7-7.7); Neutrophil % 64.9 % (47-70); Platelet Count 208 K/mm3 (150-450); RBC Distribution Width CV 12.9 % (11.6-14.6); Red Blood Count 4.63 M/mm3 (4.6-6.2); White Blood Count 7.4 K/mm3 (4.4-11.0)
[2023-03-20 08:20] LABS: Anion Gap 6 (5-15); BUN 18 mg/dL (7-18); BUN/Creat Ratio 30.7 RATIO (10-20); Calcium,Total 8.1 mg/dL (8.5-10.1); Chloride 107 mmol/L (98-107); Creatinine, Serum 0.59 mg/dL (0.70-1.30); EST Glomerular Filtration Rate 147 mL/min (>60); Est Glom Filt Rate - Afr Amer 178 mL/min (>60); Glucose 124 mg/dL (74-106); Potassium 3.6 mmol/L (3.5-5.1); Sodium Level 142 mmol/L (136-145)
== END | disposition home or self-care (01) ==
LOC: OLS.SANC 05:00
PROVIDERS: Visit Provider Internal Medicine
DX: Z79.899 Other long term (current) drug therapy (principal)
CPT/HCPCS: 36415; 80048; 85025

== ENCOUNTER → 2023-03-27 | Outpatient (REF) | payer MEDICAID, SELFPAY ==
[2023-03-27 09:06] LABS: Absolute Lymphocyte Count 2.06 X10^3/uL (0.83-4.51); Absolute Neutrophil Count 6.3 X10^3/uL (2.0-7.7); Basophil# 0.04 X10^3/uL; Basophil% 0.4 % (0-1); Eosinophil# 0.02 X10^3/uL; Eosinophils% 0.2 % (0-5); Hematocrit 41.3 % (40-54); Hemoglobin 13.2 g/dL (13.0-16.5); Lymphocyte # 2.06 X10^3/ul (0.83-4.51); Lymphocyte % 22.6 % (19-41); Mean Corpuscular Hgb 29.3 pg (27.0-32.0); Mean Corpuscular Volume 91.6 fL (80-94); Mean Platelet Vol. 10.8 fl (6.2-12.0); Monocyte# 0.66 X10^3/uL; Monocyte% 7.3 % (0-10); NRBC Flagged by Analyzer 0 % (0-5); Neutrophil # 6.26 X10^3/uL (2.7-7.7); Neutrophil % 68.8 % (47-70); Platelet Count 205 K/mm3 (150-450); RBC Distribution Width CV 12.9 % (11.6-14.6); RBC Distribution Width SD 42.9 fl (35.1-43.9); Red Blood Count 4.51 M/mm3 (4.6-6.2); White Blood Count 9.1 K/mm3 (4.4-11.0)
== END | disposition home or self-care (01) ==
LOC: OLS.SANC 05:00
PROVIDERS: Visit Provider Internal Medicine
DX: Z79.899 Other long term (current) drug therapy (principal)
CPT/HCPCS: 36415; 85025

== ENCOUNTER → 2023-04-03 | Outpatient (REF) | payer MEDICAID, SELFPAY ==
[2023-04-03 09:13] LABS: Absolute Lymphocyte Count 1.91 X10^3/uL (0.83-4.51); Basophil# 0.04 X10^3/uL; Basophil% 0.5 % (0-1); Eosinophil# 0.04 X10^3/uL; Eosinophils% 0.5 % (0-5); Hematocrit 42.3 % (40-54); Hemoglobin 13.7 g/dL (13.0-16.5); Lymphocyte # 1.91 X10^3/ul (0.83-4.51); Lymphocyte % 25.2 % (19-41); Mean Corp Hgb Conc 32.4 g/dL (32-36); Mean Corpuscular Hgb 29.7 pg (27.0-32.0); Mean Corpuscular Volume 91.6 fL (80-94); Mean Platelet Vol. 10.8 fl (6.2-12.0); Monocyte# 0.52 X10^3/uL; Monocyte% 6.9 % (0-10); NRBC Flagged by Analyzer 0 % (0-5); Neutrophil # 5.03 X10^3/uL (2.7-7.7); Neutrophil % 66.5 % (47-70); Platelet Count 216 K/mm3 (150-450); RBC Distribution Width CV 12.8 % (11.6-14.6); RBC Distribution Width SD 42.6 fl (35.1-43.9); Red Blood Count 4.62 M/mm3 (4.6-6.2); White Blood Count 7.6 K/mm3 (4.4-11.0)
== END | disposition home or self-care (01) ==
LOC: OLS.SANC 04:00
PROVIDERS: Referring Provider Internal Medicine; Visit Provider Internal Medicine
DX: F20.89 Other schizophrenia (principal)
CPT/HCPCS: 36415; 85025

== ENCOUNTER → 2023-04-10 | Outpatient (REF) | payer MEDICAID, SELFPAY ==
[2023-04-10 08:26] LABS: Absolute Lymphocyte Count 2.54 X10^3/uL (0.83-4.51); Absolute Neutrophil Count 5.1 X10^3/uL (2.0-7.7); Basophil# 0.04 X10^3/uL; Basophil% 0.5 % (0-1); Eosinophil# 0.04 X10^3/uL; Eosinophils% 0.5 % (0-5); Hematocrit 44.3 % (40-54); Hemoglobin 14.2 g/dL (13.0-16.5); Lymphocyte # 2.54 X10^3/ul (0.83-4.51); Lymphocyte % 29.4 % (19-41); Mean Corp Hgb Conc 32.1 g/dL (32-36); Mean Corpuscular Hgb 29.3 pg (27.0-32.0); Mean Corpuscular Volume 91.5 fL (80-94); Mean Platelet Vol. 11.1 fl (6.2-12.0); Monocyte# 0.89 X10^3/uL; Monocyte% 10.3 % (0-10); NRBC Flagged by Analyzer 0 % (0-5); Neutrophil # 5.11 X10^3/uL (2.7-7.7); Platelet Count 216 K/mm3 (150-450); RBC Distribution Width CV 12.6 % (11.6-14.6); RBC Distribution Width SD 41.9 fl (35.1-43.9); Red Blood Count 4.84 M/mm3 (4.6-6.2); White Blood Count 8.7 K/mm3 (4.4-11.0)
== END | disposition home or self-care (01) ==
LOC: OLS.SANC 05:00
PROVIDERS: Visit Provider Internal Medicine
DX: Z79.899 Other long term (current) drug therapy (principal)
CPT/HCPCS: 36415; 85025

== ENCOUNTER → 2023-04-14 | Outpatient (REF) | payer MEDICAID, SELFPAY ==
[2023-04-14 08:58] LABS: AST(SGOT) 14 U/L (15-37); Alanine Aminotransfer ALT/SGPT 23 U/L (16-61); Alkaline Phosphatase 139 U/L (45-117); Bilirubin, Direct 0.11 mg/dL (0.00-0.30); Globulin 3.2 g/dL (2.2-4.2); Protein, Total 6.2 g/dL (6.4-8.2)
== END | disposition home or self-care (01) ==
LOC: OLS.SANC 04:00
PROVIDERS: Referring Provider Internal Medicine; Visit Provider Internal Medicine
DX: N31.9 Neuromuscular dysfunction of bladder, unspecified (principal); M62.81 Muscle weakness (generalized)
CPT/HCPCS: 36415; 80076

== ENCOUNTER → 2023-04-17 | Outpatient (REF) | payer MEDICAID, SELFPAY ==
[2023-04-17 08:26] LABS: Absolute Lymphocyte Count 0.92 X10^3/uL (0.83-4.51); Basophil# 0.01 X10^3/uL; Basophil% 0.1 % (0-1); Hematocrit 41.7 % (40-54); Hemoglobin 13.7 g/dL (13.0-16.5); Lymphocyte # 0.92 X10^3/ul (0.83-4.51); Lymphocyte % 12.5 % (19-41); Mean Corp Hgb Conc 32.9 g/dL (32-36); Mean Corpuscular Hgb 29.8 pg (27.0-32.0); Mean Corpuscular Volume 90.8 fL (80-94); Mean Platelet Vol. 10.9 fl (6.2-12.0); Monocyte# 0.41 X10^3/uL; Monocyte% 5.6 % (0-10); NRBC Flagged by Analyzer 0 % (0-5); Neutrophil % 81.4 % (47-70); Platelet Count 194 K/mm3 (150-450); RBC Distribution Width CV 12.8 % (11.6-14.6); RBC Distribution Width SD 42.3 fl (35.1-43.9); Red Blood Count 4.59 M/mm3 (4.6-6.2); White Blood Count 7.4 K/mm3 (4.4-11.0)
== END | disposition home or self-care (01) ==
LOC: OLS.SANC 05:00
PROVIDERS: Visit Provider Internal Medicine
DX: F20.9 Schizophrenia, unspecified (principal)
CPT/HCPCS: 36415; 85025

== ENCOUNTER → 2023-05-08 | Outpatient (REF) | payer MEDICAID, SELFPAY ==
[2023-05-08 10:14] LABS: Absolute Lymphocyte Count 2.06 X10^3/uL (0.83-4.51); Basophil# 0.03 X10^3/uL; Basophil% 0.4 % (0-1); Eosinophil# 0.04 X10^3/uL; Eosinophils% 0.5 % (0-5); Hematocrit 42.4 % (40-54); Hemoglobin 13.6 g/dL (13.0-16.5); Lymphocyte # 2.06 X10^3/ul (0.83-4.51); Lymphocyte % 27.4 % (19-41); Mean Corp Hgb Conc 32.1 g/dL (32-36); Mean Corpuscular Hgb 29.4 pg (27.0-32.0); Mean Corpuscular Volume 91.8 fL (80-94); Monocyte# 0.42 X10^3/uL; Monocyte% 5.6 % (0-10); NRBC Flagged by Analyzer 0 % (0-5); Neutrophil # 4.95 X10^3/uL (2.7-7.7); Neutrophil % 65.7 % (47-70); Platelet Count 226 K/mm3 (150-450); RBC Distribution Width SD 43.1 fl (35.1-43.9); Red Blood Count 4.62 M/mm3 (4.6-6.2); White Blood Count 7.5 K/mm3 (4.4-11.0)
== END | disposition home or self-care (01) ==
LOC: OLS.SANC 05:00
PROVIDERS: Visit Provider Internal Medicine
DX: Z79.899 Other long term (current) drug therapy (principal)
CPT/HCPCS: 36415; 85025

== ENCOUNTER → 2023-05-15 | Outpatient (REF) | payer MEDICAID, SELFPAY ==
[2023-05-15 07:58] LABS: Absolute Lymphocyte Count 2.11 X10^3/uL (0.83-4.51); Absolute Neutrophil Count 4.9 X10^3/uL (2.0-7.7); Basophil# 0.05 X10^3/uL; Basophil% 0.6 % (0-1); Eosinophil# 0.06 X10^3/uL; Eosinophils% 0.8 % (0-5); Hematocrit 41.7 % (40-54); Hemoglobin 13.9 g/dL (13.0-16.5); Lymphocyte # 2.11 X10^3/ul (0.83-4.51); Lymphocyte % 26.7 % (19-41); Mean Corp Hgb Conc 33.3 g/dL (32-36); Mean Corpuscular Hgb 30.2 pg (27.0-32.0); Mean Corpuscular Volume 90.5 fL (80-94); Mean Platelet Vol. 10.7 fl (6.2-12.0); Monocyte# 0.72 X10^3/uL; Monocyte% 9.1 % (0-10); NRBC Flagged by Analyzer 0 % (0-5); Neutrophil # 4.94 X10^3/uL (2.7-7.7); Neutrophil % 62.4 % (47-70); Platelet Count 202 K/mm3 (150-450); RBC Distribution Width CV 12.9 % (11.6-14.6); RBC Distribution Width SD 42.4 fl (35.1-43.9); Red Blood Count 4.61 M/mm3 (4.6-6.2); White Blood Count 7.9 K/mm3 (4.4-11.0)
== END | disposition home or self-care (01) ==
LOC: OLS.SANC 05:00
PROVIDERS: Visit Provider Internal Medicine
DX: F20.9 Schizophrenia, unspecified (principal); Z79.899 Other long term (current) drug therapy
CPT/HCPCS: 36415; 85025

== ENCOUNTER → 2023-05-22 | Outpatient (REF) | payer MEDICAID, SELFPAY ==
[2023-05-22 09:21] LABS: Basophil# 0.04 X10^3/uL; Basophil% 0.4 % (0-1); Eosinophil# 0.04 X10^3/uL; Eosinophils% 0.4 % (0-5); Hematocrit 41.5 % (40-54); Hemoglobin 13.7 g/dL (13.0-16.5); Lymphocyte % 25.6 % (19-41); Mean Corpuscular Hgb 30.3 pg (27.0-32.0); Mean Corpuscular Volume 91.8 fL (80-94); Mean Platelet Vol. 11.3 fl (6.2-12.0); Monocyte# 0.85 X10^3/uL; Monocyte% 9.1 % (0-10); NRBC Flagged by Analyzer 0 % (0-5); Neutrophil # 5.97 X10^3/uL (2.7-7.7); Neutrophil % 63.9 % (47-70); Platelet Count 192 K/mm3 (150-450); RBC Distribution Width CV 12.8 % (11.6-14.6); RBC Distribution Width SD 43.4 fl (35.1-43.9); Red Blood Count 4.52 M/mm3 (4.6-6.2); White Blood Count 9.4 K/mm3 (4.4-11.0)
== END | disposition home or self-care (01) ==
LOC: OLS.SANC 05:00
PROVIDERS: Visit Provider Internal Medicine
DX: Z79.899 Other long term (current) drug therapy (principal)
CPT/HCPCS: 36415; 85025

== ENCOUNTER → 2023-05-29 | Outpatient (REF) | payer MEDICAID, SELFPAY ==
[2023-05-29 09:49] LABS: Absolute Lymphocyte Count 2.32 X10^3/uL (0.83-4.51); Absolute Neutrophil Count 5.7 X10^3/uL (2.0-7.7); Basophil# 0.05 X10^3/uL; Basophil% 0.6 % (0-1); Eosinophil# 0.04 X10^3/uL; Eosinophils% 0.5 % (0-5); Hematocrit 45.4 % (40-54); Hemoglobin 14.2 g/dL (13.0-16.5); Lymphocyte # 2.32 X10^3/ul (0.83-4.51); Lymphocyte % 26.7 % (19-41); Mean Corp Hgb Conc 31.3 g/dL (32-36); Mean Corpuscular Hgb 29.4 pg (27.0-32.0); Mean Platelet Vol. 11.1 fl (6.2-12.0); Monocyte# 0.59 X10^3/uL; Monocyte% 6.8 % (0-10); NRBC Flagged by Analyzer 0 % (0-5); Neutrophil # 5.66 X10^3/uL (2.7-7.7); Neutrophil % 65.2 % (47-70); Platelet Count 116 K/mm3 (150-450); RBC Distribution Width CV 12.6 % (11.6-14.6); Red Blood Count 4.83 M/mm3 (4.6-6.2); White Blood Count 8.7 K/mm3 (4.4-11.0)
== END | disposition home or self-care (01) ==
LOC: OLS.SANC 05:00
PROVIDERS: Visit Provider Internal Medicine
DX: N40.0 Benign prostatic hyperplasia without lower urinary tract symptoms (principal); F20.0 Paranoid schizophrenia; J95.821 Acute postprocedural respiratory failure; Z79.899 Other long term (current) drug therapy
CPT/HCPCS: 36415; 85025

== ENCOUNTER → 2023-06-05 | Outpatient (REF) | payer MEDICAID, SELFPAY ==
[2023-06-05 09:02] LABS: Absolute Lymphocyte Count 2.05 X10^3/uL (0.83-4.51); Absolute Neutrophil Count 5.7 X10^3/uL (2.0-7.7); Basophil# 0.04 X10^3/uL; Basophil% 0.5 % (0-1); Eosinophil# 0.04 X10^3/uL; Eosinophils% 0.5 % (0-5); Hemoglobin 13.6 g/dL (13.0-16.5); Lymphocyte # 2.05 X10^3/ul (0.83-4.51); Lymphocyte % 24.1 % (19-41); Mean Corp Hgb Conc 33.2 g/dL (32-36); Mean Corpuscular Hgb 29.8 pg (27.0-32.0); Mean Corpuscular Volume 89.7 fL (80-94); Mean Platelet Vol. 10.8 fl (6.2-12.0); Monocyte# 0.65 X10^3/uL; Monocyte% 7.6 % (0-10); NRBC Flagged by Analyzer 0 % (0-5); Neutrophil # 5.71 X10^3/uL (2.7-7.7); Neutrophil % 66.9 % (47-70); Platelet Count 193 K/mm3 (150-450); RBC Distribution Width CV 12.6 % (11.6-14.6); RBC Distribution Width SD 41.1 fl (35.1-43.9); Red Blood Count 4.57 M/mm3 (4.6-6.2); White Blood Count 8.5 K/mm3 (4.4-11.0)
== END | disposition home or self-care (01) ==
LOC: OLS.SANC 05:00
PROVIDERS: Visit Provider Internal Medicine
DX: Z79.899 Other long term (current) drug therapy (principal)
CPT/HCPCS: 36415; 85025

== ENCOUNTER → 2023-06-12 | Outpatient (REF) | payer MEDICAID, SELFPAY ==
[2023-06-12 10:20] LABS: Absolute Lymphocyte Count 2.17 X10^3/uL (0.83-4.51); Absolute Neutrophil Count 5.1 X10^3/uL (2.0-7.7); Basophil# 0.03 X10^3/uL; Basophil% 0.4 % (0-1); Eosinophil# 0.04 X10^3/uL; Eosinophils% 0.5 % (0-5); Hematocrit 40.8 % (40-54); Hemoglobin 13.5 g/dL (13.0-16.5); Lymphocyte # 2.17 X10^3/ul (0.83-4.51); Lymphocyte % 26.7 % (19-41); Mean Corp Hgb Conc 33.1 g/dL (32-36); Mean Corpuscular Hgb 30.2 pg (27.0-32.0); Mean Corpuscular Volume 91.3 fL (80-94); Monocyte# 0.73 X10^3/uL; NRBC Flagged by Analyzer 0 % (0-5); Neutrophil # 5.13 X10^3/uL (2.7-7.7); Platelet Count 195 K/mm3 (150-450); RBC Distribution Width CV 12.6 % (11.6-14.6); RBC Distribution Width SD 41.5 fl (35.1-43.9); Red Blood Count 4.47 M/mm3 (4.6-6.2); White Blood Count 8.1 K/mm3 (4.4-11.0)
== END | disposition home or self-care (01) ==
LOC: OLS.SANC 05:00
PROVIDERS: Visit Provider Internal Medicine
DX: F20.9 Schizophrenia, unspecified (principal); Z79.899 Other long term (current) drug therapy
CPT/HCPCS: 36415; 85025

== ENCOUNTER → 2023-06-19 | Outpatient (REF) | payer MEDICAID, SELFPAY ==
[2023-06-19 10:13] LABS: Absolute Lymphocyte Count 2.13 X10^3/uL (0.83-4.51); Absolute Neutrophil Count 4.6 X10^3/uL (2.0-7.7); Basophil# 0.04 X10^3/uL; Basophil% 0.5 % (0-1); Eosinophil# 0.04 X10^3/uL; Eosinophils% 0.5 % (0-5); Hematocrit 43.1 % (40-54); Hemoglobin 13.7 g/dL (13.0-16.5); Lymphocyte # 2.13 X10^3/ul (0.83-4.51); Lymphocyte % 28.8 % (19-41); Mean Corp Hgb Conc 31.8 g/dL (32-36); Mean Corpuscular Hgb 29.1 pg (27.0-32.0); Mean Corpuscular Volume 91.7 fL (80-94); Mean Platelet Vol. 11.1 fl (6.2-12.0); Monocyte% 8.1 % (0-10); NRBC Flagged by Analyzer 0 % (0-5); Neutrophil # 4.55 X10^3/uL (2.7-7.7); Neutrophil % 61.6 % (47-70); Platelet Count 201 K/mm3 (150-450); RBC Distribution Width CV 12.7 % (11.6-14.6); RBC Distribution Width SD 42.8 fl (35.1-43.9); White Blood Count 7.4 K/mm3 (4.4-11.0)
== END | disposition home or self-care (01) ==
LOC: OLS.SANC 04:00
PROVIDERS: Referring Provider Internal Medicine; Visit Provider Internal Medicine
DX: Z79.899 Other long term (current) drug therapy (principal)
CPT/HCPCS: 36415; 85025

== ENCOUNTER → 2023-06-26 05:00 | Outpatient (REF) | payer MEDICAID, SELFPAY ==
[2023-06-26 09:14] LABS: Absolute Lymphocyte Count 2.23 X10^3/uL (0.83-4.51); Absolute Neutrophil Count 5.1 X10^3/uL (2.0-7.7); Basophil# 0.04 X10^3/uL; Basophil% 0.5 % (0-1); Eosinophil# 0.06 X10^3/uL; Eosinophils% 0.7 % (0-5); Hematocrit 42.6 % (40-54); Hemoglobin 13.7 g/dL (13.0-16.5); Lymphocyte # 2.23 X10^3/ul (0.83-4.51); Lymphocyte % 27.3 % (19-41); Mean Corp Hgb Conc 32.2 g/dL (32-36); Mean Corpuscular Hgb 29.7 pg (27.0-32.0); Mean Corpuscular Volume 92.2 fL (80-94); Monocyte# 0.78 X10^3/uL; Monocyte% 9.5 % (0-10); NRBC Flagged by Analyzer 0 % (0-5); Neutrophil # 5.05 X10^3/uL (2.7-7.7); Neutrophil % 61.8 % (47-70); Platelet Count 182 K/mm3 (150-450); RBC Distribution Width CV 12.7 % (11.6-14.6); RBC Distribution Width SD 42.8 fl (35.1-43.9); Red Blood Count 4.62 M/mm3 (4.6-6.2); White Blood Count 8.2 K/mm3 (4.4-11.0)
== END ==
LOC: OLS.SANC 05:00
PROVIDERS: Visit Provider Internal Medicine
DX: Z79.899 Other long term (current) drug therapy (principal)
CPT/HCPCS: 36415; 85025

== ENCOUNTER → 2023-07-03 | Outpatient (REF) | payer MEDICAID, SELFPAY ==
[2023-07-03 09:43] LABS: Absolute Lymphocyte Count 1.84 X10^3/uL (0.83-4.51); Absolute Neutrophil Count 8.1 X10^3/uL (2.0-7.7); Basophil# 0.06 X10^3/uL; Basophil% 0.5 % (0-1); Eosinophil# 0.04 X10^3/uL; Eosinophils% 0.4 % (0-5); Hematocrit 40.3 % (40-54); Hemoglobin 13.2 g/dL (13.0-16.5); Lymphocyte # 1.84 X10^3/ul (0.83-4.51); Lymphocyte % 16.9 % (19-41); Mean Corp Hgb Conc 32.8 g/dL (32-36); Mean Corpuscular Hgb 29.4 pg (27.0-32.0); Mean Corpuscular Volume 89.8 fL (80-94); Mean Platelet Vol. 11.2 fl (6.2-12.0); Monocyte# 0.81 X10^3/uL; Monocyte% 7.4 % (0-10); NRBC Flagged by Analyzer 0 % (0-5); Neutrophil # 8.12 X10^3/uL (2.7-7.7); Neutrophil % 74.4 % (47-70); Platelet Count 191 K/mm3 (150-450); RBC Distribution Width CV 12.7 % (11.6-14.6); RBC Distribution Width SD 41.9 fl (35.1-43.9); Red Blood Count 4.49 M/mm3 (4.6-6.2); White Blood Count 10.9 K/mm3 (4.4-11.0)
[2023-07-04 05:37] LABS: PSA,Total- Diagnostic 3.17 ng/mL (0.0-4.0)
== END | disposition home or self-care (01) ==
LOC: OLS.SANC 05:00
PROVIDERS: Visit Provider Internal Medicine
DX: N31.9 Neuromuscular dysfunction of bladder, unspecified (principal); N40.0 Benign prostatic hyperplasia without lower urinary tract symptoms; Z79.899 Other long term (current) drug therapy
CPT/HCPCS: 36415; 84153; 85025

== ENCOUNTER → 2023-07-10 | Outpatient (REF) | payer MEDICAID, SELFPAY ==
[2023-07-10 09:22] LABS: Absolute Lymphocyte Count 2.14 X10^3/uL (0.83-4.51); Absolute Neutrophil Count 5.8 X10^3/uL (2.0-7.7); Basophil# 0.03 X10^3/uL; Basophil% 0.3 % (0-1); Eosinophil# 0.03 X10^3/uL; Eosinophils% 0.3 % (0-5); Hemoglobin 13.8 g/dL (13.0-16.5); Lymphocyte # 2.14 X10^3/ul (0.83-4.51); Lymphocyte % 24.7 % (19-41); Mean Corp Hgb Conc 33.7 g/dL (32-36); Mean Corpuscular Hgb 29.9 pg (27.0-32.0); Mean Corpuscular Volume 88.9 fL (80-94); Monocyte# 0.68 X10^3/uL; Monocyte% 7.8 % (0-10); NRBC Flagged by Analyzer 0 % (0-5); Neutrophil # 5.76 X10^3/uL (2.7-7.7); Neutrophil % 66.4 % (47-70); Platelet Count 215 K/mm3 (150-450); RBC Distribution Width CV 12.6 % (11.6-14.6); RBC Distribution Width SD 40.6 fl (35.1-43.9); Red Blood Count 4.61 M/mm3 (4.6-6.2); White Blood Count 8.7 K/mm3 (4.4-11.0)
== END | disposition home or self-care (01) ==
LOC: OLS.SANC 05:00
PROVIDERS: Visit Provider Internal Medicine
DX: F20.9 Schizophrenia, unspecified (principal); Z79.899 Other long term (current) drug therapy
CPT/HCPCS: 36415; 85025

== ENCOUNTER → 2023-07-17 | Outpatient (REF) | payer MEDICAID, SELFPAY ==
[2023-07-17 08:15] LABS: Absolute Lymphocyte Count 2.22 X10^3/uL (0.83-4.51); Absolute Neutrophil Count 5.8 X10^3/uL (2.0-7.7); Basophil# 0.04 X10^3/uL; Basophil% 0.5 % (0-1); Eosinophil# 0.05 X10^3/uL; Eosinophils% 0.6 % (0-5); Hematocrit 42.8 % (40-54); Lymphocyte # 2.22 X10^3/ul (0.83-4.51); Lymphocyte % 25.4 % (19-41); Mean Corp Hgb Conc 32.7 g/dL (32-36); Mean Corpuscular Hgb 29.6 pg (27.0-32.0); Mean Corpuscular Volume 90.5 fL (80-94); Mean Platelet Vol. 10.9 fl (6.2-12.0); Monocyte# 0.58 X10^3/uL; Monocyte% 6.6 % (0-10); NRBC Flagged by Analyzer 0 % (0-5); Neutrophil % 66.4 % (47-70); Platelet Count 193 K/mm3 (150-450); RBC Distribution Width CV 12.4 % (11.6-14.6); RBC Distribution Width SD 41.1 fl (35.1-43.9); Red Blood Count 4.73 M/mm3 (4.6-6.2); White Blood Count 8.7 K/mm3 (4.4-11.0)
[2023-07-17 08:23] LABS: Cholesterol 126 mg/dL (200); High Density Lipoprotein 28 mg/dL; Triglycerides 176 mg/dL; Very Low Density Lipoprotein 35 mg/dL (5-40)
[2023-07-17 08:35] LABS: Vitamin D,25 Hydroxy 33.1 ng/mL
== END | disposition home or self-care (01) ==
LOC: OLS.SANC 04:00
PROVIDERS: Referring Provider Internal Medicine; Visit Provider Internal Medicine
DX: K21.00 Gastro-esophageal reflux disease with esophagitis, without bleeding (principal); M62.81 Muscle weakness (generalized); Z79.899 Other long term (current) drug therapy
CPT/HCPCS: 36415; 80061; 82306; 85025

== ENCOUNTER → 2023-07-24 | Outpatient (REF) | payer MEDICAID, SELFPAY ==
[2023-07-24 09:42] LABS: Basophil# 0.05 X10^3/uL; Basophil% 0.7 % (0-1); Eosinophil# 0.05 X10^3/uL; Eosinophils% 0.7 % (0-5); Hematocrit 43.3 % (40-54); Hemoglobin 14.2 g/dL (13.0-16.5); Lymphocyte % 26.2 % (19-41); Mean Corp Hgb Conc 32.8 g/dL (32-36); Mean Corpuscular Hgb 29.5 pg (27.0-32.0); Mean Corpuscular Volume 89.8 fL (80-94); Monocyte# 0.49 X10^3/uL; Monocyte% 6.4 % (0-10); NRBC Flagged by Analyzer 0 % (0-5); Neutrophil % 65.6 % (47-70); Platelet Count 215 K/mm3 (150-450); RBC Distribution Width CV 12.8 % (11.6-14.6); Red Blood Count 4.82 M/mm3 (4.6-6.2); White Blood Count 7.6 K/mm3 (4.4-11.0)
== END | disposition home or self-care (01) ==
LOC: OLS.SANC 04:00
PROVIDERS: Referring Provider Internal Medicine; Visit Provider Internal Medicine
DX: Z79.899 Other long term (current) drug therapy (principal); F20.9 Schizophrenia, unspecified
CPT/HCPCS: 36415; 85025

== ENCOUNTER → 2023-07-31 | Outpatient (REF) | payer MEDICAID, SELFPAY ==
[2023-07-31 09:18] LABS: Absolute Lymphocyte Count 2.04 X10^3/uL (0.83-4.51); Absolute Neutrophil Count 5.5 X10^3/uL (2.0-7.7); Basophil# 0.05 X10^3/uL; Basophil% 0.6 % (0-1); Eosinophil# 0.05 X10^3/uL; Eosinophils% 0.6 % (0-5); Hematocrit 41.7 % (40-54); Hemoglobin 13.9 g/dL (13.0-16.5); Lymphocyte # 2.04 X10^3/ul (0.83-4.51); Lymphocyte % 24.2 % (19-41); Mean Corp Hgb Conc 33.3 g/dL (32-36); Mean Corpuscular Hgb 29.9 pg (27.0-32.0); Mean Corpuscular Volume 89.7 fL (80-94); Mean Platelet Vol. 10.6 fl (6.2-12.0); Monocyte# 0.72 X10^3/uL; Monocyte% 8.5 % (0-10); NRBC Flagged by Analyzer 0 % (0-5); Neutrophil # 5.54 X10^3/uL (2.7-7.7); Neutrophil % 65.7 % (47-70); Platelet Count 201 K/mm3 (150-450); RBC Distribution Width CV 12.8 % (11.6-14.6); RBC Distribution Width SD 42.2 fl (35.1-43.9); Red Blood Count 4.65 M/mm3 (4.6-6.2); White Blood Count 8.4 K/mm3 (4.4-11.0)
== END | disposition home or self-care (01) ==
LOC: OLS.SANC 05:00
PROVIDERS: Visit Provider Internal Medicine
DX: Z79.899 Other long term (current) drug therapy (principal)
CPT/HCPCS: 36415; 85025

== ENCOUNTER → 2023-08-07 | Outpatient (REF) | payer MEDICAID, SELFPAY ==
[2023-08-07 10:11] LABS: Absolute Lymphocyte Count 2.23 X10^3/uL (0.83-4.51); Absolute Neutrophil Count 6.2 X10^3/uL (2.0-7.7); Basophil# 0.04 X10^3/uL; Basophil% 0.4 % (0-1); Eosinophil# 0.04 X10^3/uL; Eosinophils% 0.4 % (0-5); Hematocrit 42.5 % (40-54); Hemoglobin 13.9 g/dL (13.0-16.5); Lymphocyte # 2.23 X10^3/ul (0.83-4.51); Lymphocyte % 23.9 % (19-41); Mean Corp Hgb Conc 32.7 g/dL (32-36); Mean Corpuscular Hgb 29.4 pg (27.0-32.0); Mean Platelet Vol. 10.7 fl (6.2-12.0); Monocyte# 0.75 X10^3/uL; NRBC Flagged by Analyzer 0 % (0-5); Neutrophil # 6.22 X10^3/uL (2.7-7.7); Neutrophil % 66.9 % (47-70); Platelet Count 210 K/mm3 (150-450); RBC Distribution Width SD 42.5 fl (35.1-43.9); Red Blood Count 4.72 M/mm3 (4.6-6.2); White Blood Count 9.3 K/mm3 (4.4-11.0)
== END | disposition home or self-care (01) ==
LOC: OLS.SANC 04:00
PROVIDERS: Referring Provider Internal Medicine; Visit Provider Internal Medicine
DX: Z79.899 Other long term (current) drug therapy (principal)
CPT/HCPCS: 36415; 85025

== ENCOUNTER → 2023-08-14 | Outpatient (REF) | payer MEDICAID, SELFPAY ==
[2023-08-14 09:42] LABS: Absolute Neutrophil Count 5.5 X10^3/uL (2.0-7.7); Basophil# 0.05 X10^3/uL; Basophil% 0.6 % (0-1); Eosinophil# 0.03 X10^3/uL; Eosinophils% 0.4 % (0-5); Hematocrit 39.9 % (40-54); Hemoglobin 13.1 g/dL (13.0-16.5); Lymphocyte % 24.9 % (19-41); Mean Corp Hgb Conc 32.8 g/dL (32-36); Mean Corpuscular Volume 91.5 fL (80-94); Mean Platelet Vol. 11.2 fl (6.2-12.0); Monocyte# 0.71 X10^3/uL; Monocyte% 8.4 % (0-10); NRBC Flagged by Analyzer 0 % (0-5); Neutrophil # 5.51 X10^3/uL (2.7-7.7); Neutrophil % 65.3 % (47-70); Platelet Count 193 K/mm3 (150-450); RBC Distribution Width CV 12.9 % (11.6-14.6); RBC Distribution Width SD 43.3 fl (35.1-43.9); Red Blood Count 4.36 M/mm3 (4.6-6.2); White Blood Count 8.4 K/mm3 (4.4-11.0)
== END | disposition home or self-care (01) ==
LOC: OLS.SANC 05:00
PROVIDERS: Visit Provider Internal Medicine
DX: Z79.899 Other long term (current) drug therapy (principal)
CPT/HCPCS: 36415; 85025

== ENCOUNTER → 2023-08-21 | Outpatient (REF) | payer MEDICAID, SELFPAY ==
[2023-08-21 09:59] LABS: Absolute Lymphocyte Count 1.86 X10^3/uL (0.83-4.51); Absolute Neutrophil Count 5.7 X10^3/uL (2.0-7.7); Basophil# 0.04 X10^3/uL; Basophil% 0.5 % (0-1); Eosinophil# 0.05 X10^3/uL; Eosinophils% 0.6 % (0-5); Hematocrit 41.9 % (40-54); Hemoglobin 13.8 g/dL (13.0-16.5); Lymphocyte # 1.86 X10^3/ul (0.83-4.51); Lymphocyte % 22.7 % (19-41); Mean Corp Hgb Conc 32.9 g/dL (32-36); Mean Corpuscular Hgb 29.7 pg (27.0-32.0); Mean Corpuscular Volume 90.3 fL (80-94); Mean Platelet Vol. 10.9 fl (6.2-12.0); Monocyte# 0.56 X10^3/uL; Monocyte% 6.8 % (0-10); NRBC Flagged by Analyzer 0 % (0-5); Neutrophil # 5.67 X10^3/uL (2.7-7.7); Platelet Count 201 K/mm3 (150-450); RBC Distribution Width CV 13.2 % (11.6-14.6); RBC Distribution Width SD 42.8 fl (35.1-43.9); Red Blood Count 4.64 M/mm3 (4.6-6.2); White Blood Count 8.2 K/mm3 (4.4-11.0)
== END | disposition home or self-care (01) ==
LOC: OLS.SANC 04:00
PROVIDERS: Referring Provider Internal Medicine; Visit Provider Internal Medicine
DX: F20.9 Schizophrenia, unspecified (principal); Z79.899 Other long term (current) drug therapy
CPT/HCPCS: 36415; 85025

== ENCOUNTER → 2023-08-28 | Outpatient (REF) | payer MEDICAID, SELFPAY ==
[2023-08-28 09:09] LABS: Absolute Lymphocyte Count 2.65 X10^3/uL (0.83-4.51); Absolute Neutrophil Count 7.2 X10^3/uL (2.0-7.7); Basophil# 0.07 X10^3/uL; Basophil% 0.6 % (0-1); Eosinophil# 0.05 X10^3/uL; Eosinophils% 0.5 % (0-5); Hematocrit 45.4 % (40-54); Hemoglobin 14.5 g/dL (13.0-16.5); Lymphocyte # 2.65 X10^3/ul (0.83-4.51); Lymphocyte % 24.4 % (19-41); Mean Corp Hgb Conc 31.9 g/dL (32-36); Mean Corpuscular Hgb 29.8 pg (27.0-32.0); Mean Corpuscular Volume 93.2 fL (80-94); Mean Platelet Vol. 10.7 fl (6.2-12.0); Monocyte# 0.91 X10^3/uL; Monocyte% 8.4 % (0-10); NRBC Flagged by Analyzer 0 % (0-5); Neutrophil # 7.16 X10^3/uL (2.7-7.7); Neutrophil % 65.7 % (47-70); Platelet Count 190 K/mm3 (150-450); RBC Distribution Width SD 44.1 fl (35.1-43.9); Red Blood Count 4.87 M/mm3 (4.6-6.2); White Blood Count 10.9 K/mm3 (4.4-11.0)
== END | disposition home or self-care (01) ==
LOC: OLS.SANC 05:00
PROVIDERS: Visit Provider Internal Medicine
DX: Z79.899 Other long term (current) drug therapy (principal)
CPT/HCPCS: 36415; 85025

== ENCOUNTER → 2023-09-04 | Outpatient (REF) | payer MEDICAID, SELFPAY ==
[2023-09-04 08:58] LABS: Absolute Lymphocyte Count 1.96 X10^3/uL (0.83-4.51); Absolute Neutrophil Count 4.9 X10^3/uL (2.0-7.7); Basophil# 0.03 X10^3/uL; Basophil% 0.4 % (0-1); Eosinophil# 0.04 X10^3/uL; Eosinophils% 0.5 % (0-5); Hematocrit 40.3 % (40-54); Hemoglobin 13.4 g/dL (13.0-16.5); Lymphocyte # 1.96 X10^3/ul (0.83-4.51); Lymphocyte % 26.1 % (19-41); Mean Corp Hgb Conc 33.3 g/dL (32-36); Mean Corpuscular Hgb 30.1 pg (27.0-32.0); Mean Corpuscular Volume 90.6 fL (80-94); Monocyte# 0.57 X10^3/uL; Monocyte% 7.6 % (0-10); NRBC Flagged by Analyzer 0 % (0-5); Neutrophil % 65.1 % (47-70); Platelet Count 184 K/mm3 (150-450); RBC Distribution Width CV 12.8 % (11.6-14.6); RBC Distribution Width SD 41.9 fl (35.1-43.9); Red Blood Count 4.45 M/mm3 (4.6-6.2); White Blood Count 7.5 K/mm3 (4.4-11.0)
== END | disposition home or self-care (01) ==
LOC: OLS.SANC 05:00
PROVIDERS: Visit Provider Internal Medicine
DX: F20.9 Schizophrenia, unspecified (principal); Z79.899 Other long term (current) drug therapy
CPT/HCPCS: 36415; 85025

== ENCOUNTER → 2023-09-11 | Outpatient (REF) | payer MEDICAID, SELFPAY ==
[2023-09-11 09:21] LABS: Absolute Lymphocyte Count 2.47 X10^3/uL (0.83-4.51); Absolute Neutrophil Count 5.5 X10^3/uL (2.0-7.7); Basophil# 0.05 X10^3/uL; Basophil% 0.6 % (0-1); Eosinophil# 0.04 X10^3/uL; Eosinophils% 0.5 % (0-5); Hematocrit 40.6 % (40-54); Hemoglobin 13.3 g/dL (13.0-16.5); Lymphocyte # 2.47 X10^3/ul (0.83-4.51); Lymphocyte % 28.2 % (19-41); Mean Corp Hgb Conc 32.8 g/dL (32-36); Mean Corpuscular Volume 91.4 fL (80-94); Mean Platelet Vol. 11.1 fl (6.2-12.0); Monocyte# 0.62 X10^3/uL; Monocyte% 7.1 % (0-10); NRBC Flagged by Analyzer 0 % (0-5); Neutrophil # 5.53 X10^3/uL (2.7-7.7); Neutrophil % 63.1 % (47-70); Platelet Count 193 K/mm3 (150-450); RBC Distribution Width CV 12.8 % (11.6-14.6); RBC Distribution Width SD 42.5 fl (35.1-43.9); Red Blood Count 4.44 M/mm3 (4.6-6.2); White Blood Count 8.8 K/mm3 (4.4-11.0)
[2023-09-11 09:40] LABS: ALB/GLOB Ratio 1.2 RATIO (0.9-2.4); AST(SGOT) 12 U/L (15-37); Alanine Aminotransfer ALT/SGPT 21 U/L (16-61); Alkaline Phosphatase 107 U/L (45-117); Anion Gap 1 (5-15); BUN 17 mg/dL (7-18); BUN/Creat Ratio 23.4 RATIO (10-20); Calcium,Total 8.1 mg/dL (8.5-10.1); Chloride 107 mmol/L (98-107); Cholesterol 119 mg/dL (200); Creatinine, Serum 0.73 mg/dL (0.70-1.30); EST Glomerular Filtration Rate 114 mL/min (>60); Est Glom Filt Rate - Afr Amer 139 mL/min (>60); Globulin 2.6 g/dL (2.2-4.2); Glucose 125 mg/dL (74-106); High Density Lipoprotein 22 mg/dL; Potassium 3.6 mmol/L (3.5-5.1); Protein, Total 5.6 g/dL (6.4-8.2); Sodium Level 140 mmol/L (136-145); Triglycerides 230 mg/dL; Very Low Density Lipoprotein 46 mg/dL (5-40)
== END | disposition home or self-care (01) ==
LOC: OLS.SANC 05:00
PROVIDERS: Visit Provider Internal Medicine
DX: Z79.899 Other long term (current) drug therapy (principal)
CPT/HCPCS: 36415; 80053; 80061; 85025

== ENCOUNTER → 2023-09-18 | Outpatient (REF) | payer MEDICAID, SELFPAY ==
[2023-09-18 10:26] LABS: Absolute Lymphocyte Count 2.03 X10^3/uL (0.83-4.51); Absolute Neutrophil Count 5.4 X10^3/uL (2.0-7.7); Basophil# 0.04 X10^3/uL; Basophil% 0.5 % (0-1); Eosinophil# 0.03 X10^3/uL; Eosinophils% 0.4 % (0-5); Hematocrit 41.5 % (40-54); Hemoglobin 13.9 g/dL (13.0-16.5); Lymphocyte # 2.03 X10^3/ul (0.83-4.51); Lymphocyte % 24.7 % (19-41); Mean Corp Hgb Conc 33.5 g/dL (32-36); Mean Corpuscular Hgb 30.5 pg (27.0-32.0); Mean Platelet Vol. 11.4 fl (6.2-12.0); Monocyte# 0.72 X10^3/uL; Monocyte% 8.8 % (0-10); NRBC Flagged by Analyzer 0 % (0-5); Neutrophil # 5.38 X10^3/uL (2.7-7.7); Neutrophil % 65.4 % (47-70); POSITIVE COUNT YES; RBC Distribution Width SD 42.8 fl (35.1-43.9); Red Blood Count 4.56 M/mm3 (4.6-6.2); White Blood Count 8.2 K/mm3 (4.4-11.0)
[2023-09-18 11:50] LABS: Differential Indicated SCAN CRITERIA MET; Platelet Estimate ADEQUATE (ADEQ)
== END | disposition home or self-care (01) ==
LOC: OLS.SANC 05:00
PROVIDERS: Visit Provider Internal Medicine
DX: F20.9 Schizophrenia, unspecified (principal); Z79.899 Other long term (current) drug therapy
CPT/HCPCS: 36415; 85025

== ENCOUNTER → 2023-09-27 | Outpatient (REF) | payer MEDICAID, SELFPAY ==
[2023-09-27 08:07] LABS: Absolute Lymphocyte Count 1.95 X10^3/uL (0.83-4.51); Absolute Neutrophil Count 4.8 X10^3/uL (2.0-7.7); Basophil# 0.04 X10^3/uL; Basophil% 0.5 % (0-1); Eosinophil# 0.05 X10^3/uL; Eosinophils% 0.7 % (0-5); Hematocrit 38.9 % (40-54); Hemoglobin 12.7 g/dL (13.0-16.5); Lymphocyte # 1.95 X10^3/ul (0.83-4.51); Lymphocyte % 26.2 % (19-41); Mean Corp Hgb Conc 32.6 g/dL (32-36); Mean Corpuscular Hgb 29.7 pg (27.0-32.0); Mean Corpuscular Volume 91.1 fL (80-94); Monocyte# 0.61 X10^3/uL; Monocyte% 8.2 % (0-10); NRBC Flagged by Analyzer 0 % (0-5); Neutrophil # 4.76 X10^3/uL (2.7-7.7); Neutrophil % 64.1 % (47-70); Platelet Count 188 K/mm3 (150-450); RBC Distribution Width CV 12.8 % (11.6-14.6); Red Blood Count 4.27 M/mm3 (4.6-6.2); White Blood Count 7.4 K/mm3 (4.4-11.0)
== END | disposition home or self-care (01) ==
LOC: OLS.SANC 05:00
PROVIDERS: Visit Provider Internal Medicine
DX: F20.9 Schizophrenia, unspecified (principal); Z79.899 Other long term (current) drug therapy
CPT/HCPCS: 36415; 85025

== ENCOUNTER → 2023-10-02 | Outpatient (REF) | payer MEDICAID, SELFPAY ==
[2023-10-02 08:57] LABS: Absolute Lymphocyte Count 1.02 X10^3/uL (0.83-4.51); Absolute Neutrophil Count 6.8 X10^3/uL (2.0-7.7); Basophil# 0.04 X10^3/uL; Basophil% 0.5 % (0-1); Hematocrit 44.5 % (40-54); Hemoglobin 14.3 g/dL (13.0-16.5); Lymphocyte # 1.02 X10^3/ul (0.83-4.51); Lymphocyte % 11.9 % (19-41); Mean Corp Hgb Conc 32.1 g/dL (32-36); Mean Corpuscular Hgb 29.7 pg (27.0-32.0); Mean Corpuscular Volume 92.3 fL (80-94); Mean Platelet Vol. 11.4 fl (6.2-12.0); Monocyte# 0.64 X10^3/uL; Monocyte% 7.5 % (0-10); NRBC Flagged by Analyzer 0 % (0-5); Neutrophil # 6.82 X10^3/uL (2.7-7.7); Neutrophil % 79.6 % (47-70); Platelet Count 170 K/mm3 (150-450); RBC Distribution Width SD 44.1 fl (35.1-43.9); Red Blood Count 4.82 M/mm3 (4.6-6.2); White Blood Count 8.6 K/mm3 (4.4-11.0)
== END | disposition home or self-care (01) ==
LOC: OLS.SANC 04:00
PROVIDERS: Referring Provider Internal Medicine; Visit Provider Internal Medicine
DX: F20.9 Schizophrenia, unspecified (principal); Z79.899 Other long term (current) drug therapy
CPT/HCPCS: 36415; 85025

== ENCOUNTER → 2023-10-09 | Outpatient (REF) | payer MEDICAID, SELFPAY ==
[2023-10-09 08:54] LABS: Absolute Lymphocyte Count 2.05 X10^3/uL (0.83-4.51); Absolute Neutrophil Count 5.5 X10^3/uL (2.0-7.7); Basophil# 0.02 X10^3/uL; Basophil% 0.2 % (0-1); Eosinophil# 0.03 X10^3/uL; Eosinophils% 0.4 % (0-5); Hemoglobin 13.2 g/dL (13.0-16.5); Lymphocyte # 2.05 X10^3/ul (0.83-4.51); Lymphocyte % 24.8 % (19-41); Mean Corpuscular Hgb 30.1 pg (27.0-32.0); Mean Corpuscular Volume 91.3 fL (80-94); Mean Platelet Vol. 10.4 fl (6.2-12.0); Monocyte# 0.59 X10^3/uL; Monocyte% 7.1 % (0-10); NRBC Flagged by Analyzer 0 % (0-5); Neutrophil # 5.52 X10^3/uL (2.7-7.7); Neutrophil % 66.8 % (47-70); Platelet Count 234 K/mm3 (150-450); RBC Distribution Width CV 12.5 % (11.6-14.6); RBC Distribution Width SD 41.9 fl (35.1-43.9); Red Blood Count 4.38 M/mm3 (4.6-6.2); White Blood Count 8.3 K/mm3 (4.4-11.0)
== END | disposition home or self-care (01) ==
LOC: OLS.SANC 05:00
PROVIDERS: Visit Provider Internal Medicine
DX: N40.0 Benign prostatic hyperplasia without lower urinary tract symptoms (principal); F20.89 Other schizophrenia
CPT/HCPCS: 36415; 85025

== ENCOUNTER → 2023-10-16 | Outpatient (REF) | payer MEDICAID, SELFPAY ==
[2023-10-16 08:15] LABS: Absolute Lymphocyte Count 2.37 X10^3/uL (0.83-4.51); Absolute Neutrophil Count 5.6 X10^3/uL (2.0-7.7); Basophil# 0.03 X10^3/uL; Basophil% 0.3 % (0-1); Eosinophil# 0.02 X10^3/uL; Eosinophils% 0.2 % (0-5); Hematocrit 39.6 % (40-54); Hemoglobin 12.8 g/dL (13.0-16.5); Lymphocyte # 2.37 X10^3/ul (0.83-4.51); Lymphocyte % 27.3 % (19-41); Mean Corp Hgb Conc 32.3 g/dL (32-36); Mean Corpuscular Hgb 29.7 pg (27.0-32.0); Mean Corpuscular Volume 91.9 fL (80-94); Mean Platelet Vol. 10.7 fl (6.2-12.0); Monocyte# 0.59 X10^3/uL; Monocyte% 6.8 % (0-10); NRBC Flagged by Analyzer 0 % (0-5); Neutrophil # 5.62 X10^3/uL (2.7-7.7); Neutrophil % 64.9 % (47-70); Platelet Count 209 K/mm3 (150-450); RBC Distribution Width CV 12.6 % (11.6-14.6); RBC Distribution Width SD 42.5 fl (35.1-43.9); Red Blood Count 4.31 M/mm3 (4.6-6.2); White Blood Count 8.7 K/mm3 (4.4-11.0)
== END | disposition home or self-care (01) ==
LOC: OLS.SANC 05:00
PROVIDERS: Visit Provider Internal Medicine
DX: N40.0 Benign prostatic hyperplasia without lower urinary tract symptoms (principal); F20.9 Schizophrenia, unspecified; N31.9 Neuromuscular dysfunction of bladder, unspecified; J95.821 Acute postprocedural respiratory failure; Z79.899 Other long term (current) drug therapy
CPT/HCPCS: 36415; 85025

== ENCOUNTER → 2023-10-23 | Outpatient (REF) | payer MEDICAID, SELFPAY ==
[2023-10-23 08:33] LABS: Absolute Lymphocyte Count 2.08 X10^3/uL (0.83-4.51); Absolute Neutrophil Count 4.3 X10^3/uL (2.0-7.7); Basophil# 0.04 X10^3/uL; Basophil% 0.6 % (0-1); Eosinophil# 0.04 X10^3/uL; Eosinophils% 0.6 % (0-5); Hematocrit 39.1 % (40-54); Hemoglobin 12.6 g/dL (13.0-16.5); Lymphocyte # 2.08 X10^3/ul (0.83-4.51); Lymphocyte % 29.1 % (19-41); Mean Corp Hgb Conc 32.2 g/dL (32-36); Mean Corpuscular Hgb 29.7 pg (27.0-32.0); Mean Corpuscular Volume 92.2 fL (80-94); Mean Platelet Vol. 11.3 fl (6.2-12.0); Monocyte# 0.69 X10^3/uL; Monocyte% 9.6 % (0-10); NRBC Flagged by Analyzer 0 % (0-5); Neutrophil # 4.28 X10^3/uL (2.7-7.7); Neutrophil % 59.7 % (47-70); Platelet Count 200 K/mm3 (150-450); RBC Distribution Width CV 12.9 % (11.6-14.6); RBC Distribution Width SD 43.5 fl (35.1-43.9); Red Blood Count 4.24 M/mm3 (4.6-6.2); White Blood Count 7.2 K/mm3 (4.4-11.0)
== END | disposition home or self-care (01) ==
LOC: OLS.SANC 05:00
PROVIDERS: Visit Provider Internal Medicine
DX: Z79.899 Other long term (current) drug therapy (principal)
CPT/HCPCS: 36415; 85025

== ENCOUNTER → 2023-10-30 | Outpatient (REF) | payer MEDICAID, SELFPAY ==
[2023-10-30 08:32] LABS: Absolute Lymphocyte Count 3.06 X10^3/uL (0.83-4.51); Absolute Neutrophil Count 5.1 X10^3/uL (2.0-7.7); Basophil# 0.05 X10^3/uL; Basophil% 0.5 % (0-1); Eosinophil# 0.03 X10^3/uL; Eosinophils% 0.3 % (0-5); Hematocrit 43.8 % (40-54); Hemoglobin 13.9 g/dL (13.0-16.5); Lymphocyte # 3.06 X10^3/ul (0.83-4.51); Lymphocyte % 32.4 % (19-41); Mean Corp Hgb Conc 31.7 g/dL (32-36); Mean Corpuscular Hgb 29.3 pg (27.0-32.0); Mean Corpuscular Volume 92.4 fL (80-94); Mean Platelet Vol. 11.7 fl (6.2-12.0); Monocyte# 1.12 X10^3/uL; Monocyte% 11.9 % (0-10); NRBC Flagged by Analyzer 0 % (0-5); Neutrophil # 5.14 X10^3/uL (2.7-7.7); Neutrophil % 54.5 % (47-70); Platelet Count 203 K/mm3 (150-450); RBC Distribution Width CV 13.2 % (11.6-14.6); RBC Distribution Width SD 44.7 fl (35.1-43.9); Red Blood Count 4.74 M/mm3 (4.6-6.2); White Blood Count 9.4 K/mm3 (4.4-11.0)
== END | disposition home or self-care (01) ==
LOC: OLS.SANC 05:00
PROVIDERS: Visit Provider Internal Medicine
DX: F20.9 Schizophrenia, unspecified (principal); Z79.899 Other long term (current) drug therapy
CPT/HCPCS: 36415; 85025

== ENCOUNTER → 2023-11-06 | Outpatient (REF) | payer MEDICAID, SELFPAY ==
[2023-11-06 09:00] LABS: Absolute Lymphocyte Count 2.13 X10^3/uL (0.83-4.51); Absolute Neutrophil Count 4.7 X10^3/uL (2.0-7.7); Basophil# 0.05 X10^3/uL; Basophil% 0.7 % (0-1); Eosinophil# 0.03 X10^3/uL; Eosinophils% 0.4 % (0-5); Hematocrit 42.4 % (40-54); Hemoglobin 13.9 g/dL (13.0-16.5); Lymphocyte # 2.13 X10^3/ul (0.83-4.51); Lymphocyte % 28.1 % (19-41); Mean Corp Hgb Conc 32.8 g/dL (32-36); Mean Corpuscular Hgb 30.3 pg (27.0-32.0); Mean Corpuscular Volume 92.4 fL (80-94); Mean Platelet Vol. 10.9 fl (6.2-12.0); Monocyte# 0.67 X10^3/uL; Monocyte% 8.8 % (0-10); NRBC Flagged by Analyzer 0 % (0-5); Neutrophil # 4.67 X10^3/uL (2.7-7.7); Neutrophil % 61.6 % (47-70); Platelet Count 173 K/mm3 (150-450); RBC Distribution Width CV 13.1 % (11.6-14.6); Red Blood Count 4.59 M/mm3 (4.6-6.2); White Blood Count 7.6 K/mm3 (4.4-11.0)
== END | disposition home or self-care (01) ==
LOC: OLS.SANC 05:00
PROVIDERS: Referring Provider Internal Medicine; Visit Provider Internal Medicine
DX: Z79.899 Other long term (current) drug therapy (principal)
CPT/HCPCS: 36415; 85025

== ENCOUNTER → 2023-11-13 | Outpatient (REF) | payer MEDICAID, SELFPAY ==
[2023-11-13 07:44] LABS: Absolute Lymphocyte Count 2.72 X10^3/uL (0.83-4.51); Absolute Neutrophil Count 8.2 X10^3/uL (2.0-7.7); Basophil# 0.06 X10^3/uL; Basophil% 0.5 % (0-1); Eosinophil# 0.04 X10^3/uL; Eosinophils% 0.3 % (0-5); Hematocrit 43.6 % (40-54); Lymphocyte # 2.72 X10^3/ul (0.83-4.51); Lymphocyte % 23.2 % (19-41); Mean Corp Hgb Conc 32.1 g/dL (32-36); Mean Corpuscular Hgb 29.9 pg (27.0-32.0); Mean Platelet Vol. 11.2 fl (6.2-12.0); Monocyte# 0.68 X10^3/uL; Monocyte% 5.8 % (0-10); NRBC Flagged by Analyzer 0 % (0-5); Neutrophil # 8.16 X10^3/uL (2.7-7.7); Neutrophil % 69.8 % (47-70); Platelet Count 207 K/mm3 (150-450); RBC Distribution Width CV 12.9 % (11.6-14.6); RBC Distribution Width SD 43.4 fl (35.1-43.9); Red Blood Count 4.69 M/mm3 (4.6-6.2); White Blood Count 11.7 K/mm3 (4.4-11.0)
== END | disposition home or self-care (01) ==
LOC: OLS.SANC 05:00
PROVIDERS: Visit Provider Internal Medicine
DX: F20.9 Schizophrenia, unspecified (principal); Z79.899 Other long term (current) drug therapy
CPT/HCPCS: 36415; 85025

== ENCOUNTER → 2023-11-13 | Outpatient (REF) | payer MEDICAID, SELFPAY ==
[2023-11-14 09:02] LABS: Bacteria 0 SEEN /hpf (None Seen); Mucous, Urine 0 SEEN /hpf (<or=2+); Squamous Epithelial Cells - UA 0 SEEN /hpf (0-5)
[2023-11-14 09:54] LABS: Color, Urine Yellow (Yellow); Glucose, Dipstick Normal (Normal); Ketone-Dipstick Negative (Negative); Leukocyte Esterase-Dipstick Negative /ul (Negative); Nitrite-Dipstick Negative (Negative); Occult Blood-Urine Negative /ul (Negative); Protein-Dipstick Negative (Negative); Urine Bilirubin Dipstick Negative (Negative); Urine Clarity Clear (Clear); Urine Urobilinogen 4 mg/dl (Normal)
[2023-11-14 10:04] LABS: Red Blood Cells-Urine 0-5 SEEN /hpf (0-5); White Blood Cells 0-5 SEEN /hpf (0-5)
== END | disposition home or self-care (01) ==
LOC: OLS.SANC 21:08
PROVIDERS: Referring Provider Internal Medicine; Visit Provider Internal Medicine
DX: N39.0 Urinary tract infection, site not specified (principal); D72.829 Elevated white blood cell count, unspecified
CPT/HCPCS: 81001; 87086

== ENCOUNTER → 2023-11-20 | Outpatient (REF) | payer MEDICAID, SELFPAY ==
[2023-11-20 09:16] LABS: Absolute Lymphocyte Count 2.24 X10^3/uL (0.83-4.51); Absolute Neutrophil Count 5.7 X10^3/uL (2.0-7.7); Basophil# 0.05 X10^3/uL; Basophil% 0.6 % (0-1); Eosinophil# 0.04 X10^3/uL; Eosinophils% 0.5 % (0-5); Hematocrit 41.5 % (40-54); Hemoglobin 13.6 g/dL (13.0-16.5); Lymphocyte # 2.24 X10^3/ul (0.83-4.51); Lymphocyte % 25.5 % (19-41); Mean Corp Hgb Conc 32.8 g/dL (32-36); Mean Corpuscular Volume 91.4 fL (80-94); Mean Platelet Vol. 11.5 fl (6.2-12.0); NRBC Flagged by Analyzer 0 % (0-5); Neutrophil # 5.72 X10^3/uL (2.7-7.7); Neutrophil % 65.2 % (47-70); Platelet Count 190 K/mm3 (150-450); RBC Distribution Width CV 13.1 % (11.6-14.6); RBC Distribution Width SD 43.3 fl (35.1-43.9); Red Blood Count 4.54 M/mm3 (4.6-6.2); White Blood Count 8.8 K/mm3 (4.4-11.0)
== END | disposition home or self-care (01) ==
LOC: OLS.SANC 05:00
PROVIDERS: Visit Provider Internal Medicine
DX: N40.0 Benign prostatic hyperplasia without lower urinary tract symptoms (principal); J95.821 Acute postprocedural respiratory failure; Z79.899 Other long term (current) drug therapy
CPT/HCPCS: 36415; 85025

== ENCOUNTER → 2023-11-27 | Outpatient (REF) | payer MEDICAID, SELFPAY ==
[2023-11-27 09:04] LABS: Absolute Lymphocyte Count 1.72 X10^3/uL (0.83-4.51); Absolute Neutrophil Count 4.3 X10^3/uL (2.0-7.7); Basophil# 0.03 X10^3/uL; Basophil% 0.4 % (0-1); Eosinophil# 0.04 X10^3/uL; Eosinophils% 0.6 % (0-5); Hematocrit 40.8 % (40-54); Hemoglobin 13.2 g/dL (13.0-16.5); Lymphocyte # 1.72 X10^3/ul (0.83-4.51); Lymphocyte % 25.8 % (19-41); Mean Corp Hgb Conc 32.4 g/dL (32-36); Mean Corpuscular Hgb 29.7 pg (27.0-32.0); Mean Corpuscular Volume 91.7 fL (80-94); NRBC Flagged by Analyzer 0 % (0-5); Neutrophil # 4.26 X10^3/uL (2.7-7.7); Neutrophil % 63.9 % (47-70); Platelet Count 196 K/mm3 (150-450); RBC Distribution Width SD 43.5 fl (35.1-43.9); Red Blood Count 4.45 M/mm3 (4.6-6.2); White Blood Count 6.7 K/mm3 (4.4-11.0)
== END | disposition home or self-care (01) ==
LOC: OLS.SANC 04:00
PROVIDERS: Visit Provider Internal Medicine
DX: F20.9 Schizophrenia, unspecified (principal); Z79.899 Other long term (current) drug therapy
CPT/HCPCS: 36415; 85025

== ENCOUNTER → 2023-12-04 | Outpatient (REF) | payer MEDICAID, SELFPAY ==
[2023-12-04 09:35] LABS: Hemoglobin 13.4 g/dL (13.0-16.5); Mean Corp Hgb Conc 32.7 g/dL (32-36); Mean Corpuscular Volume 91.7 fL (80-94); Mean Platelet Vol. 10.8 fl (6.2-12.0); Platelet Count 219 K/mm3 (150-450); RBC Distribution Width CV 12.8 % (11.6-14.6); Red Blood Count 4.47 M/mm3 (4.6-6.2); White Blood Count 7.6 K/mm3 (4.4-11.0)
== END | disposition home or self-care (01) ==
LOC: OLS.SANC 05:00
PROVIDERS: Visit Provider Internal Medicine
DX: Z79.899 Other long term (current) drug therapy (principal)
CPT/HCPCS: 36415; 85027

== ENCOUNTER → 2023-12-11 | Outpatient (REF) | payer MEDICAID, SELFPAY ==
[2023-12-11 08:31] LABS: Absolute Lymphocyte Count 2.03 X10^3/uL (0.83-4.51); Absolute Neutrophil Count 5.7 X10^3/uL (2.0-7.7); Basophil# 0.05 X10^3/uL; Basophil% 0.6 % (0-1); Eosinophil# 0.05 X10^3/uL; Eosinophils% 0.6 % (0-5); Hematocrit 39.9 % (40-54); Hemoglobin 12.8 g/dL (13.0-16.5); Lymphocyte # 2.03 X10^3/ul (0.83-4.51); Lymphocyte % 23.9 % (19-41); Mean Corp Hgb Conc 32.1 g/dL (32-36); Mean Corpuscular Hgb 29.4 pg (27.0-32.0); Mean Corpuscular Volume 91.7 fL (80-94); Mean Platelet Vol. 11.1 fl (6.2-12.0); Monocyte# 0.66 X10^3/uL; Monocyte% 7.8 % (0-10); NRBC Flagged by Analyzer 0 % (0-5); Neutrophil # 5.69 X10^3/uL (2.7-7.7); Neutrophil % 66.7 % (47-70); Platelet Count 204 K/mm3 (150-450); RBC Distribution Width CV 12.8 % (11.6-14.6); RBC Distribution Width SD 43.2 fl (35.1-43.9); Red Blood Count 4.35 M/mm3 (4.6-6.2); White Blood Count 8.5 K/mm3 (4.4-11.0)
== END | disposition home or self-care (01) ==
LOC: OLS.SANC 05:00
PROVIDERS: Visit Provider Internal Medicine
DX: F20.9 Schizophrenia, unspecified (principal); Z79.899 Other long term (current) drug therapy
CPT/HCPCS: 36415; 85025

== ENCOUNTER → 2023-12-18 | Outpatient (REF) | payer MEDICAID, SELFPAY ==
[2023-12-18 08:48] LABS: Absolute Lymphocyte Count 2.38 X10^3/uL (0.83-4.51); Absolute Neutrophil Count 5.2 X10^3/uL (2.0-7.7); Basophil# 0.03 X10^3/uL; Basophil% 0.4 % (0-1); Eosinophil# 0.06 X10^3/uL; Eosinophils% 0.7 % (0-5); Hemoglobin 15.3 g/dL (13.0-16.5); Lymphocyte # 2.38 X10^3/ul (0.83-4.51); Lymphocyte % 28.5 % (19-41); Mean Corp Hgb Conc 31.9 g/dL (32-36); Mean Corpuscular Hgb 29.4 pg (27.0-32.0); Mean Corpuscular Volume 92.3 fL (80-94); Mean Platelet Vol. 11.6 fl (6.2-12.0); Monocyte% 8.4 % (0-10); NRBC Flagged by Analyzer 0 % (0-5); Neutrophil # 5.15 X10^3/uL (2.7-7.7); Neutrophil % 61.8 % (47-70); Platelet Count 183 K/mm3 (150-450); RBC Distribution Width CV 12.8 % (11.6-14.6); RBC Distribution Width SD 43.5 fl (35.1-43.9); White Blood Count 8.3 K/mm3 (4.4-11.0)
== END | disposition home or self-care (01) ==
LOC: OLS.SANC 05:00
PROVIDERS: Visit Provider Internal Medicine
DX: Z79.899 Other long term (current) drug therapy (principal)
CPT/HCPCS: 36415; 85025

== ENCOUNTER → 2023-12-25 04:00 | Outpatient (REF) | payer MEDICAID, SELFPAY ==
[2023-12-25 08:14] LABS: Absolute Lymphocyte Count 2.51 X10^3/uL (0.83-4.51); Absolute Neutrophil Count 4.1 X10^3/uL (2.0-7.7); Basophil# 0.04 X10^3/uL; Basophil% 0.5 % (0-1); Eosinophil# 0.06 X10^3/uL; Eosinophils% 0.8 % (0-5); Hematocrit 40.5 % (40-54); Hemoglobin 12.9 g/dL (13.0-16.5); Lymphocyte # 2.51 X10^3/ul (0.83-4.51); Lymphocyte % 33.5 % (19-41); Mean Corp Hgb Conc 31.9 g/dL (32-36); Mean Corpuscular Hgb 29.3 pg (27.0-32.0); Mean Platelet Vol. 10.8 fl (6.2-12.0); Monocyte% 10.7 % (0-10); NRBC Flagged by Analyzer 0 % (0-5); Neutrophil # 4.06 X10^3/uL (2.7-7.7); Neutrophil % 54.1 % (47-70); Platelet Count 193 K/mm3 (150-450); RBC Distribution Width CV 13.1 % (11.6-14.6); White Blood Count 7.5 K/mm3 (4.4-11.0)
== END ==
LOC: OLS.SANC 04:00
PROVIDERS: Visit Provider Internal Medicine
DX: Z79.899 Other long term (current) drug therapy (principal)
CPT/HCPCS: 36415; 85025

== ENCOUNTER → 2024-01-02 05:00 | Outpatient (REF) | payer MEDICAID, SELFPAY ==
[2024-01-02 08:58] LABS: Absolute Lymphocyte Count 2.57 X10^3/uL (0.83-4.51); Absolute Neutrophil Count 5.9 X10^3/uL (2.0-7.7); Basophil# 0.05 X10^3/uL; Basophil% 0.5 % (0-1); Eosinophil# 0.04 X10^3/uL; Eosinophils% 0.4 % (0-5); Hematocrit 40.6 % (40-54); Hemoglobin 13.3 g/dL (13.0-16.5); Lymphocyte # 2.57 X10^3/ul (0.83-4.51); Mean Corp Hgb Conc 32.8 g/dL (32-36); Mean Corpuscular Hgb 30.2 pg (27.0-32.0); Mean Corpuscular Volume 92.3 fL (80-94); Mean Platelet Vol. 12.1 fl (6.2-12.0); Monocyte# 0.92 X10^3/uL; Monocyte% 9.7 % (0-10); NRBC Flagged by Analyzer 0 % (0-5); Neutrophil # 5.92 X10^3/uL (2.7-7.7); Neutrophil % 62.1 % (47-70); Platelet Count 172 K/mm3 (150-450); RBC Distribution Width CV 13.1 % (11.6-14.6); White Blood Count 9.5 K/mm3 (4.4-11.0)
[2024-01-02 09:07] LABS: Cholesterol 115 mg/dL (200); High Density Lipoprotein 24 mg/dL; Triglycerides 271 mg/dL; Very Low Density Lipoprotein 54 mg/dL (5-40)
== END ==
LOC: OLS.SANC 05:00
PROVIDERS: Visit Provider Internal Medicine
DX: E78.5 Hyperlipidemia, unspecified (principal); Z79.899 Other long term (current) drug therapy
CPT/HCPCS: 36415; 80061; 85025

== ENCOUNTER → 2024-01-08 | Outpatient (REF) | payer MEDICAID, SELFPAY ==
[2024-01-08 10:58] LABS: Absolute Neutrophil Count 5.5 X10^3/uL (2.0-7.7); Basophil# 0.05 X10^3/uL; Basophil% 0.5 % (0-1); Eosinophil# 0.06 X10^3/uL; Eosinophils% 0.6 % (0-5); Hematocrit 44.3 % (40-54); Hemoglobin 14.4 g/dL (13.0-16.5); Lymphocyte % 31.4 % (19-41); Mean Corp Hgb Conc 32.5 g/dL (32-36); Mean Corpuscular Hgb 29.8 pg (27.0-32.0); Mean Corpuscular Volume 91.7 fL (80-94); Mean Platelet Vol. 11.9 fl (6.2-12.0); Monocyte% 12.8 % (0-10); NRBC Flagged by Analyzer 0 % (0-5); Neutrophil # 5.54 X10^3/uL (2.7-7.7); Neutrophil % 54.3 % (47-70); Platelet Count 187 K/mm3 (150-450); RBC Distribution Width CV 13.2 % (11.6-14.6); RBC Distribution Width SD 44.3 fl (35.1-43.9); Red Blood Count 4.83 M/mm3 (4.6-6.2); White Blood Count 10.2 K/mm3 (4.4-11.0)
== END | disposition home or self-care (01) ==
LOC: OLS.SANC 05:00
PROVIDERS: Visit Provider Internal Medicine
DX: F20.9 Schizophrenia, unspecified (principal); Z79.899 Other long term (current) drug therapy
CPT/HCPCS: 36415; 85025

== ENCOUNTER → 2024-01-15 05:00 | Outpatient (REF) | payer MEDICAID, SELFPAY ==
[2024-01-15 09:06] LABS: Absolute Lymphocyte Count 2.15 X10^3/uL (0.83-4.51); Absolute Neutrophil Count 5.4 X10^3/uL (2.0-7.7); Basophil# 0.06 X10^3/uL; Basophil% 0.7 % (0-1); Eosinophil# 0.06 X10^3/uL; Eosinophils% 0.7 % (0-5); Hematocrit 44.1 % (40-54); Hemoglobin 14.2 g/dL (13.0-16.5); Lymphocyte # 2.15 X10^3/ul (0.83-4.51); Lymphocyte % 25.7 % (19-41); Mean Corp Hgb Conc 32.2 g/dL (32-36); Mean Corpuscular Hgb 29.5 pg (27.0-32.0); Mean Corpuscular Volume 91.7 fL (80-94); Mean Platelet Vol. 11.1 fl (6.2-12.0); Monocyte# 0.63 X10^3/uL; Monocyte% 7.5 % (0-10); NRBC Flagged by Analyzer 0 % (0-5); Neutrophil # 5.44 X10^3/uL (2.7-7.7); Platelet Count 200 K/mm3 (150-450); RBC Distribution Width CV 13.1 % (11.6-14.6); RBC Distribution Width SD 44.1 fl (35.1-43.9); Red Blood Count 4.81 M/mm3 (4.6-6.2); White Blood Count 8.4 K/mm3 (4.4-11.0)
== END ==
LOC: OLS.SANC 05:00
PROVIDERS: Visit Provider Internal Medicine
DX: F03.90 Unspecified dementia, unspecified severity, without behavioral disturbance, psychotic disturbance, mood disturbance, and anxiety (principal); E03.9 Hypothyroidism, unspecified
CPT/HCPCS: 36415; 85025

== ENCOUNTER → 2024-01-22 | Outpatient (REF) | payer MEDICAID, SELFPAY ==
[2024-01-22 08:16] LABS: Absolute Lymphocyte Count 1.62 X10^3/uL (0.83-4.51); Absolute Neutrophil Count 8.1 X10^3/uL (2.0-7.7); Basophil# 0.04 X10^3/uL; Basophil% 0.4 % (0-1); Eosinophil# 0.01 X10^3/uL; Eosinophils% 0.1 % (0-5); Hematocrit 41.9 % (40-54); Hemoglobin 13.5 g/dL (13.0-16.5); Lymphocyte # 1.62 X10^3/ul (0.83-4.51); Lymphocyte % 15.2 % (19-41); Mean Corp Hgb Conc 32.2 g/dL (32-36); Mean Corpuscular Hgb 29.3 pg (27.0-32.0); Mean Corpuscular Volume 90.9 fL (80-94); Mean Platelet Vol. 11.2 fl (6.2-12.0); Monocyte# 0.79 X10^3/uL; Monocyte% 7.4 % (0-10); NRBC Flagged by Analyzer 0 % (0-5); Neutrophil # 8.13 X10^3/uL (2.7-7.7); Neutrophil % 76.5 % (47-70); Platelet Count 220 K/mm3 (150-450); RBC Distribution Width CV 12.9 % (11.6-14.6); RBC Distribution Width SD 42.1 fl (35.1-43.9); Red Blood Count 4.61 M/mm3 (4.6-6.2); White Blood Count 10.6 K/mm3 (4.4-11.0)
== END | disposition home or self-care (01) ==
LOC: OLS.SANC 05:00
PROVIDERS: Visit Provider Internal Medicine
DX: F20.9 Schizophrenia, unspecified (principal); Z79.899 Other long term (current) drug therapy
CPT/HCPCS: 36415; 85025

== ENCOUNTER → 2024-01-29 | Outpatient (REF) | payer MEDICAID, SELFPAY ==
[2024-01-29 08:05] LABS: Absolute Lymphocyte Count 2.12 X10^3/uL (0.83-4.51); Absolute Neutrophil Count 5.2 X10^3/uL (2.0-7.7); Basophil# 0.05 X10^3/uL; Basophil% 0.6 % (0-1); Eosinophil# 0.04 X10^3/uL; Eosinophils% 0.5 % (0-5); Hemoglobin 14.5 g/dL (13.0-16.5); Lymphocyte # 2.12 X10^3/ul (0.83-4.51); Lymphocyte % 25.9 % (19-41); Mean Corp Hgb Conc 31.5 g/dL (32-36); Mean Corpuscular Hgb 29.2 pg (27.0-32.0); Mean Corpuscular Volume 92.7 fL (80-94); Mean Platelet Vol. 10.9 fl (6.2-12.0); Monocyte# 0.74 X10^3/uL; NRBC Flagged by Analyzer 0 % (0-5); Neutrophil # 5.23 X10^3/uL (2.7-7.7); Neutrophil % 63.8 % (47-70); Platelet Count 192 K/mm3 (150-450); RBC Distribution Width CV 13.2 % (11.6-14.6); RBC Distribution Width SD 44.6 fl (35.1-43.9); Red Blood Count 4.96 M/mm3 (4.6-6.2); White Blood Count 8.2 K/mm3 (4.4-11.0)
== END | disposition home or self-care (01) ==
LOC: OLS.SANC 05:00
PROVIDERS: Visit Provider Internal Medicine
DX: Z79.899 Other long term (current) drug therapy (principal)
CPT/HCPCS: 36415; 85025

== ENCOUNTER → 2024-02-05 | Outpatient (REF) | payer MEDICAID, SELFPAY ==
[2024-02-05 08:11] LABS: Absolute Lymphocyte Count 2.06 X10^3/uL (0.83-4.51); Absolute Neutrophil Count 4.8 X10^3/uL (2.0-7.7); Basophil# 0.05 X10^3/uL; Basophil% 0.7 % (0-1); Eosinophil# 0.04 X10^3/uL; Eosinophils% 0.5 % (0-5); Hematocrit 42.7 % (40-54); Hemoglobin 13.5 g/dL (13.0-16.5); Lymphocyte # 2.06 X10^3/ul (0.83-4.51); Lymphocyte % 26.9 % (19-41); Mean Corp Hgb Conc 31.6 g/dL (32-36); Mean Corpuscular Hgb 29.3 pg (27.0-32.0); Mean Corpuscular Volume 92.8 fL (80-94); Mean Platelet Vol. 11.2 fl (6.2-12.0); Monocyte# 0.71 X10^3/uL; Monocyte% 9.3 % (0-10); NRBC Flagged by Analyzer 0 % (0-5); Neutrophil # 4.77 X10^3/uL (2.7-7.7); Neutrophil % 62.2 % (47-70); Platelet Count 192 K/mm3 (150-450); RBC Distribution Width CV 13.2 % (11.6-14.6); RBC Distribution Width SD 44.9 fl (35.1-43.9); White Blood Count 7.7 K/mm3 (4.4-11.0)
== END | disposition home or self-care (01) ==
LOC: OLS.SANC 05:00
PROVIDERS: Visit Provider Internal Medicine
DX: Z79.899 Other long term (current) drug therapy (principal)
CPT/HCPCS: 36415; 85025

== ENCOUNTER → 2024-02-12 | Outpatient (REF) | payer MEDICAID, SELFPAY ==
[2024-02-12 08:31] LABS: Absolute Lymphocyte Count 2.08 X10^3/uL (0.83-4.51); Absolute Neutrophil Count 6.9 X10^3/uL (2.0-7.7); Basophil# 0.05 X10^3/uL; Basophil% 0.5 % (0-1); Eosinophil# 0.03 X10^3/uL; Eosinophils% 0.3 % (0-5); Hematocrit 40.6 % (40-54); Hemoglobin 13.1 g/dL (13.0-16.5); Lymphocyte # 2.08 X10^3/ul (0.83-4.51); Lymphocyte % 21.2 % (19-41); Mean Corp Hgb Conc 32.3 g/dL (32-36); Mean Corpuscular Hgb 29.8 pg (27.0-32.0); Mean Corpuscular Volume 92.5 fL (80-94); Mean Platelet Vol. 10.8 fl (6.2-12.0); Monocyte# 0.74 X10^3/uL; Monocyte% 7.6 % (0-10); NRBC Flagged by Analyzer 0 % (0-5); Neutrophil # 6.87 X10^3/uL (2.7-7.7); Neutrophil % 70.1 % (47-70); Platelet Count 221 K/mm3 (150-450); RBC Distribution Width CV 12.8 % (11.6-14.6); RBC Distribution Width SD 43.4 fl (35.1-43.9); Red Blood Count 4.39 M/mm3 (4.6-6.2); White Blood Count 9.8 K/mm3 (4.4-11.0)
== END | disposition home or self-care (01) ==
LOC: OLS.SANC 04:00
PROVIDERS: Visit Provider Internal Medicine
DX: N40.0 Benign prostatic hyperplasia without lower urinary tract symptoms (principal)
CPT/HCPCS: 36415; 85025

== ENCOUNTER → 2024-02-19 | Outpatient (REF) | payer MEDICAID, SELFPAY ==
[2024-02-19 09:54] LABS: Absolute Lymphocyte Count 1.92 X10^3/uL (0.83-4.51); Absolute Neutrophil Count 6.9 X10^3/uL (2.0-7.7); Basophil# 0.04 X10^3/uL; Basophil% 0.4 % (0-1); Eosinophil# 0.06 X10^3/uL; Eosinophils% 0.6 % (0-5); Hematocrit 40.4 % (40-54); Hemoglobin 13.3 g/dL (13.0-16.5); Lymphocyte # 1.92 X10^3/ul (0.83-4.51); Lymphocyte % 20.1 % (19-41); Mean Corp Hgb Conc 32.9 g/dL (32-36); Mean Corpuscular Hgb 30.2 pg (27.0-32.0); Mean Corpuscular Volume 91.6 fL (80-94); Mean Platelet Vol. 10.9 fl (6.2-12.0); Monocyte# 0.65 X10^3/uL; Monocyte% 6.8 % (0-10); NRBC Flagged by Analyzer 0 % (0-5); Neutrophil # 6.85 X10^3/uL (2.7-7.7); Neutrophil % 71.8 % (47-70); Platelet Count 209 K/mm3 (150-450); RBC Distribution Width CV 12.9 % (11.6-14.6); RBC Distribution Width SD 42.8 fl (35.1-43.9); Red Blood Count 4.41 M/mm3 (4.6-6.2); White Blood Count 9.6 K/mm3 (4.4-11.0)
== END | disposition home or self-care (01) ==
LOC: OLS.SANC 05:00
PROVIDERS: Visit Provider Internal Medicine
DX: F20.9 Schizophrenia, unspecified (principal); Z79.899 Other long term (current) drug therapy
CPT/HCPCS: 36415; 85025

== ENCOUNTER → 2024-02-23 | Outpatient (REF) | payer MEDICAID, SELFPAY ==
[2024-02-23 10:05] LABS: Hematocrit 41.6 % (40-54); Mean Corp Hgb Conc 33.7 g/dL (32-36); Mean Corpuscular Hgb 30.6 pg (27.0-32.0); Mean Platelet Vol. 11.5 fl (6.2-12.0); Platelet Count 209 K/mm3 (150-450); RBC Distribution Width CV 12.9 % (11.6-14.6); RBC Distribution Width SD 42.4 fl (35.1-43.9); Red Blood Count 4.57 M/mm3 (4.6-6.2); White Blood Count 8.4 K/mm3 (4.4-11.0)
[2024-02-23 10:52] LABS: ALB/GLOB Ratio 1.1 RATIO (0.9-2.4); AST(SGOT) 10 U/L (15-37); Alanine Aminotransfer ALT/SGPT 16 U/L (16-61); Albumin, Serum 3.1 g/dL (3.2-5.0); Alkaline Phosphatase 123 U/L (45-117); Anion Gap 6 (5-15); BUN 16 mg/dL (7-18); BUN/Creat Ratio 24.9 RATIO (10-20); Calcium,Total 8.5 mg/dL (8.5-10.1); Chloride 109 mmol/L (98-107); Cholesterol 123 mg/dL (200); Creatinine, Serum 0.64 mg/dL (0.70-1.30); EST Glomerular Filtration Rate 132 mL/min (>60); Est Glom Filt Rate - Afr Amer 160 mL/min (>60); Globulin 2.9 g/dL (2.2-4.2); Glucose 111 mg/dL (74-106); High Density Lipoprotein 28 mg/dL; Potassium 3.6 mmol/L (3.5-5.1); Sodium Level 141 mmol/L (136-145); Triglycerides 119 mg/dL; Very Low Density Lipoprotein 24 mg/dL (5-40)
== END | disposition home or self-care (01) ==
LOC: OLS.SANC 05:00
PROVIDERS: Visit Provider Internal Medicine
DX: F20.9 Schizophrenia, unspecified (principal); E78.5 Hyperlipidemia, unspecified; Z79.899 Other long term (current) drug therapy
CPT/HCPCS: 36415; 80053; 80061; 85027

== ENCOUNTER → 2024-02-26 | Outpatient (REF) | payer MEDICAID, SELFPAY ==
[2024-02-26 08:03] LABS: Absolute Lymphocyte Count 2.15 X10^3/uL (0.83-4.51); Absolute Neutrophil Count 7.1 X10^3/uL (2.0-7.7); Basophil# 0.04 X10^3/uL; Basophil% 0.4 % (0-1); Eosinophil# 0.06 X10^3/uL; Eosinophils% 0.6 % (0-5); Hematocrit 40.2 % (40-54); Hemoglobin 13.6 g/dL (13.0-16.5); Lymphocyte # 2.15 X10^3/ul (0.83-4.51); Lymphocyte % 20.9 % (19-41); Mean Corp Hgb Conc 33.8 g/dL (32-36); Mean Corpuscular Hgb 30.6 pg (27.0-32.0); Mean Corpuscular Volume 90.5 fL (80-94); Mean Platelet Vol. 11.2 fl (6.2-12.0); Monocyte# 0.88 X10^3/uL; Monocyte% 8.5 % (0-10); NRBC Flagged by Analyzer 0 % (0-5); Neutrophil # 7.12 X10^3/uL (2.7-7.7); Neutrophil % 69.1 % (47-70); Platelet Count 226 K/mm3 (150-450); RBC Distribution Width CV 12.6 % (11.6-14.6); RBC Distribution Width SD 41.5 fl (35.1-43.9); Red Blood Count 4.44 M/mm3 (4.6-6.2); White Blood Count 10.3 K/mm3 (4.4-11.0)
== END | disposition home or self-care (01) ==
LOC: OLS.SANC 05:00
PROVIDERS: Visit Provider Internal Medicine
DX: Z79.899 Other long term (current) drug therapy (principal)
CPT/HCPCS: 36415; 85025

== ENCOUNTER → 2024-03-04 | Outpatient (REF) | payer MEDICAID, SELFPAY ==
[2024-03-04 08:52] LABS: Absolute Lymphocyte Count 1.99 X10^3/uL (0.83-4.51); Absolute Neutrophil Count 5.3 X10^3/uL (2.0-7.7); Basophil# 0.05 X10^3/uL; Basophil% 0.6 % (0-1); Eosinophil# 0.06 X10^3/uL; Eosinophils% 0.7 % (0-5); Hematocrit 42.1 % (40-54); Lymphocyte # 1.99 X10^3/ul (0.83-4.51); Lymphocyte % 24.5 % (19-41); Mean Corp Hgb Conc 33.3 g/dL (32-36); Mean Corpuscular Hgb 30.2 pg (27.0-32.0); Mean Corpuscular Volume 90.7 fL (80-94); Monocyte# 0.67 X10^3/uL; Monocyte% 8.2 % (0-10); NRBC Flagged by Analyzer 0 % (0-5); Neutrophil # 5.33 X10^3/uL (2.7-7.7); Neutrophil % 65.6 % (47-70); Platelet Count 216 K/mm3 (150-450); RBC Distribution Width CV 12.7 % (11.6-14.6); RBC Distribution Width SD 41.9 fl (35.1-43.9); Red Blood Count 4.64 M/mm3 (4.6-6.2); White Blood Count 8.1 K/mm3 (4.4-11.0)
== END | disposition home or self-care (01) ==
LOC: OLS.SANC 05:00
PROVIDERS: Visit Provider Internal Medicine
DX: N40.0 Benign prostatic hyperplasia without lower urinary tract symptoms (principal); F20.89 Other schizophrenia; J95.821 Acute postprocedural respiratory failure; Z79.899 Other long term (current) drug therapy
CPT/HCPCS: 36415; 85025

== ENCOUNTER → 2024-03-11 | Outpatient (REF) | payer MEDICAID, SELFPAY ==
[2024-03-11 08:20] LABS: Absolute Neutrophil Count 6.2 X10^3/uL (2.0-7.7); Basophil# 0.05 X10^3/uL; Basophil% 0.5 % (0-1); Eosinophil# 0.06 X10^3/uL; Eosinophils% 0.6 % (0-5); Hematocrit 41.5 % (40-54); Hemoglobin 13.8 g/dL (13.0-16.5); Lymphocyte % 25.6 % (19-41); Mean Corp Hgb Conc 33.3 g/dL (32-36); Mean Corpuscular Hgb 30.4 pg (27.0-32.0); Mean Corpuscular Volume 91.4 fL (80-94); Monocyte# 0.88 X10^3/uL; NRBC Flagged by Analyzer 0 % (0-5); Neutrophil # 6.22 X10^3/uL (2.7-7.7); Neutrophil % 63.8 % (47-70); Platelet Count 220 K/mm3 (150-450); RBC Distribution Width CV 12.7 % (11.6-14.6); RBC Distribution Width SD 41.5 fl (35.1-43.9); Red Blood Count 4.54 M/mm3 (4.6-6.2); White Blood Count 9.8 K/mm3 (4.4-11.0)
== END | disposition home or self-care (01) ==
LOC: OLS.SANC 05:00
PROVIDERS: Visit Provider Internal Medicine
DX: F20.9 Schizophrenia, unspecified (principal); J95.821 Acute postprocedural respiratory failure; Z79.899 Other long term (current) drug therapy
CPT/HCPCS: 36415; 85025

== ENCOUNTER → 2024-03-18 | Outpatient (REF) | payer MEDICAID, SELFPAY ==
[2024-03-18 08:31] LABS: Absolute Lymphocyte Count 2.23 X10^3/uL (0.83-4.51); Absolute Neutrophil Count 5.2 X10^3/uL (2.0-7.7); Basophil# 0.05 X10^3/uL; Basophil% 0.6 % (0-1); Eosinophil# 0.06 X10^3/uL; Eosinophils% 0.7 % (0-5); Hemoglobin 13.6 g/dL (13.0-16.5); Lymphocyte # 2.23 X10^3/ul (0.83-4.51); Mean Corp Hgb Conc 32.4 g/dL (32-36); Mean Corpuscular Hgb 29.5 pg (27.0-32.0); Mean Corpuscular Volume 91.1 fL (80-94); Mean Platelet Vol. 10.8 fl (6.2-12.0); Monocyte% 8.5 % (0-10); NRBC Flagged by Analyzer 0 % (0-5); Neutrophil # 5.18 X10^3/uL (2.7-7.7); Neutrophil % 62.7 % (47-70); Platelet Count 211 K/mm3 (150-450); RBC Distribution Width CV 12.8 % (11.6-14.6); RBC Distribution Width SD 42.3 fl (35.1-43.9); Red Blood Count 4.61 M/mm3 (4.6-6.2); White Blood Count 8.3 K/mm3 (4.4-11.0)
== END | disposition home or self-care (01) ==
LOC: OLS.SANC 05:00
PROVIDERS: Visit Provider Internal Medicine
DX: F20.9 Schizophrenia, unspecified (principal); Z79.899 Other long term (current) drug therapy
CPT/HCPCS: 36415; 85025

== ENCOUNTER → 2024-03-25 | Outpatient (REF) | payer MEDICAID, SELFPAY ==
[2024-03-25 08:46] LABS: Absolute Lymphocyte Count 2.14 X10^3/uL (0.83-4.51); Absolute Neutrophil Count 5.4 X10^3/uL (2.0-7.7); Basophil# 0.04 X10^3/uL; Basophil% 0.5 % (0-1); Eosinophil# 0.06 X10^3/uL; Eosinophils% 0.7 % (0-5); Hematocrit 42.3 % (40-54); Hemoglobin 13.7 g/dL (13.0-16.5); Lymphocyte # 2.14 X10^3/ul (0.83-4.51); Lymphocyte % 25.8 % (19-41); Mean Corp Hgb Conc 32.4 g/dL (32-36); Mean Corpuscular Hgb 29.2 pg (27.0-32.0); Mean Corpuscular Volume 90.2 fL (80-94); Mean Platelet Vol. 11.2 fl (6.2-12.0); Monocyte# 0.66 X10^3/uL; NRBC Flagged by Analyzer 0 % (0-5); Neutrophil # 5.36 X10^3/uL (2.7-7.7); Neutrophil % 64.5 % (47-70); Platelet Count 204 K/mm3 (150-450); RBC Distribution Width CV 12.7 % (11.6-14.6); RBC Distribution Width SD 41.8 fl (35.1-43.9); Red Blood Count 4.69 M/mm3 (4.6-6.2); White Blood Count 8.3 K/mm3 (4.4-11.0)
== END | disposition home or self-care (01) ==
LOC: OLS.SANC 05:00
PROVIDERS: Visit Provider Internal Medicine
DX: N40.0 Benign prostatic hyperplasia without lower urinary tract symptoms (principal); Z79.899 Other long term (current) drug therapy
CPT/HCPCS: 36415; 85025

== ENCOUNTER → 2024-04-01 05:00 | Outpatient (REF) | payer MEDICAID, SELFPAY ==
[2024-04-01 08:20] LABS: Absolute Lymphocyte Count 1.97 X10^3/uL (0.83-4.51); Absolute Neutrophil Count 7.1 X10^3/uL (2.0-7.7); Basophil# 0.04 X10^3/uL; Basophil% 0.4 % (0-1); Eosinophil# 0.04 X10^3/uL; Eosinophils% 0.4 % (0-5); Hematocrit 41.7 % (40-54); Hemoglobin 13.6 g/dL (13.0-16.5); Lymphocyte # 1.97 X10^3/ul (0.83-4.51); Mean Corp Hgb Conc 32.6 g/dL (32-36); Mean Corpuscular Hgb 29.7 pg (27.0-32.0); Mean Platelet Vol. 11.3 fl (6.2-12.0); Monocyte% 7.1 % (0-10); NRBC Flagged by Analyzer 0 % (0-5); Neutrophil # 7.06 X10^3/uL (2.7-7.7); Neutrophil % 71.8 % (47-70); Platelet Count 195 K/mm3 (150-450); RBC Distribution Width CV 12.6 % (11.6-14.6); RBC Distribution Width SD 41.2 fl (35.1-43.9); Red Blood Count 4.58 M/mm3 (4.6-6.2); White Blood Count 9.8 K/mm3 (4.4-11.0)
== END ==
LOC: OLS.SANC 05:00
PROVIDERS: Visit Provider Internal Medicine
DX: Z79.899 Other long term (current) drug therapy (principal)
CPT/HCPCS: 36415; 85025

== ENCOUNTER → 2024-04-08 05:00 | Outpatient (REF) | payer MEDICAID, SELFPAY ==
[2024-04-08 08:37] LABS: Absolute Lymphocyte Count 2.27 X10^3/uL (0.83-4.51); Absolute Neutrophil Count 5.7 X10^3/uL (2.0-7.7); Basophil# 0.05 X10^3/uL; Basophil% 0.6 % (0-1); Eosinophil# 0.04 X10^3/uL; Eosinophils% 0.5 % (0-5); Hematocrit 41.2 % (40-54); Hemoglobin 13.3 g/dL (13.0-16.5); Lymphocyte # 2.27 X10^3/ul (0.83-4.51); Mean Corp Hgb Conc 32.3 g/dL (32-36); Mean Corpuscular Hgb 29.6 pg (27.0-32.0); Mean Corpuscular Volume 91.8 fL (80-94); Mean Platelet Vol. 10.8 fl (6.2-12.0); Monocyte# 0.68 X10^3/uL; Monocyte% 7.8 % (0-10); NRBC Flagged by Analyzer 0 % (0-5); Neutrophil # 5.66 X10^3/uL (2.7-7.7); Neutrophil % 64.9 % (47-70); Platelet Count 208 K/mm3 (150-450); RBC Distribution Width CV 12.6 % (11.6-14.6); RBC Distribution Width SD 42.4 fl (35.1-43.9); Red Blood Count 4.49 M/mm3 (4.6-6.2); White Blood Count 8.7 K/mm3 (4.4-11.0)
== END ==
LOC: OLS.SANC 05:00
PROVIDERS: Visit Provider Internal Medicine
DX: N40.0 Benign prostatic hyperplasia without lower urinary tract symptoms (principal); R45.1 Restlessness and agitation
CPT/HCPCS: 36415; 85025

== ENCOUNTER → 2024-04-15 | Outpatient (REF) | payer MEDICAID, SELFPAY ==
[2024-04-15 09:06] LABS: Absolute Lymphocyte Count 1.93 X10^3/uL (0.83-4.51); Absolute Neutrophil Count 8.7 X10^3/uL (2.0-7.7); Basophil# 0.03 X10^3/uL; Basophil% 0.3 % (0-1); Eosinophil# 0.04 X10^3/uL; Eosinophils% 0.4 % (0-5); Hematocrit 42.5 % (40-54); Hemoglobin 13.7 g/dL (13.0-16.5); Lymphocyte # 1.93 X10^3/ul (0.83-4.51); Lymphocyte % 16.9 % (19-41); Mean Corp Hgb Conc 32.2 g/dL (32-36); Mean Corpuscular Hgb 29.5 pg (27.0-32.0); Mean Corpuscular Volume 91.6 fL (80-94); Mean Platelet Vol. 11.1 fl (6.2-12.0); Monocyte# 0.68 X10^3/uL; NRBC Flagged by Analyzer 0 % (0-5); Neutrophil # 8.69 X10^3/uL (2.7-7.7); Platelet Count 197 K/mm3 (150-450); RBC Distribution Width CV 12.8 % (11.6-14.6); RBC Distribution Width SD 42.5 fl (35.1-43.9); Red Blood Count 4.64 M/mm3 (4.6-6.2); White Blood Count 11.4 K/mm3 (4.4-11.0)
[2024-04-15 09:59] LABS: AST(SGOT) 18 U/L (15-37); Alanine Aminotransfer ALT/SGPT 21 U/L (16-61); Albumin, Serum 2.9 g/dL (3.2-5.0); Alkaline Phosphatase 126 U/L (45-117); Bilirubin, Direct < 0.05 mg/dL (0.00-0.30); Protein, Total 5.9 g/dL (6.4-8.2)
== END | disposition home or self-care (01) ==
LOC: OLS.SANC 05:00
PROVIDERS: Visit Provider Internal Medicine
DX: F20.9 Schizophrenia, unspecified (principal); Z79.899 Other long term (current) drug therapy
CPT/HCPCS: 36415; 80076; 85025

== ENCOUNTER → 2024-04-22 | Outpatient (REF) | payer MEDICAID, SELFPAY ==
[2024-04-22 08:40] LABS: Absolute Lymphocyte Count 2.61 X10^3/uL (0.83-4.51); Absolute Neutrophil Count 8.1 X10^3/uL (2.0-7.7); Basophil# 0.06 X10^3/uL; Basophil% 0.5 % (0-1); Eosinophil# 0.05 X10^3/uL; Eosinophils% 0.4 % (0-5); Hematocrit 44.5 % (40-54); Hemoglobin 14.3 g/dL (13.0-16.5); Lymphocyte # 2.61 X10^3/ul (0.83-4.51); Mean Corp Hgb Conc 32.1 g/dL (32-36); Mean Corpuscular Hgb 29.7 pg (27.0-32.0); Mean Corpuscular Volume 92.5 fL (80-94); Monocyte# 0.98 X10^3/uL; Monocyte% 8.3 % (0-10); NRBC Flagged by Analyzer 0 % (0-5); Neutrophil # 8.13 X10^3/uL (2.7-7.7); Neutrophil % 68.5 % (47-70); Platelet Count 190 K/mm3 (150-450); RBC Distribution Width CV 12.6 % (11.6-14.6); Red Blood Count 4.81 M/mm3 (4.6-6.2); White Blood Count 11.9 K/mm3 (4.4-11.0)
== END | disposition home or self-care (01) ==
LOC: OLS.SANC 05:00
PROVIDERS: Visit Provider Internal Medicine
DX: Z79.899 Other long term (current) drug therapy (principal)
CPT/HCPCS: 36415; 85025

== ENCOUNTER → 2024-04-29 | Outpatient (REF) | payer MEDICAID, SELFPAY ==
[2024-04-29 09:03] LABS: Absolute Lymphocyte Count 2.11 X10^3/uL (0.83-4.51); Absolute Neutrophil Count 6.3 X10^3/uL (2.0-7.7); Basophil# 0.04 X10^3/uL; Basophil% 0.4 % (0-1); Eosinophil# 0.04 X10^3/uL; Eosinophils% 0.4 % (0-5); Hematocrit 41.6 % (40-54); Hemoglobin 13.7 g/dL (13.0-16.5); Lymphocyte # 2.11 X10^3/ul (0.83-4.51); Lymphocyte % 22.6 % (19-41); Mean Corp Hgb Conc 32.9 g/dL (32-36); Mean Corpuscular Hgb 30.1 pg (27.0-32.0); Mean Corpuscular Volume 91.4 fL (80-94); Monocyte# 0.87 X10^3/uL; Monocyte% 9.3 % (0-10); NRBC Flagged by Analyzer 0 % (0-5); Neutrophil # 6.25 X10^3/uL (2.7-7.7); Neutrophil % 66.9 % (47-70); Platelet Count 211 K/mm3 (150-450); RBC Distribution Width CV 12.6 % (11.6-14.6); RBC Distribution Width SD 41.5 fl (35.1-43.9); Red Blood Count 4.55 M/mm3 (4.6-6.2); White Blood Count 9.4 K/mm3 (4.4-11.0)
== END | disposition home or self-care (01) ==
LOC: OLS.SANC 05:00
PROVIDERS: Visit Provider Internal Medicine
DX: F20.9 Schizophrenia, unspecified (principal); Z79.899 Other long term (current) drug therapy
CPT/HCPCS: 36415; 85025

== ENCOUNTER → 2024-05-06 | Outpatient (REF) | payer MEDICAID, SELFPAY ==
[2024-05-06 09:59] LABS: Absolute Lymphocyte Count 2.22 X10^3/uL (0.83-4.51); Absolute Neutrophil Count 5.9 X10^3/uL (2.0-7.7); Basophil# 0.05 X10^3/uL; Basophil% 0.5 % (0-1); Eosinophil# 0.04 X10^3/uL; Eosinophils% 0.4 % (0-5); Hemoglobin 14.5 g/dL (13.0-16.5); Lymphocyte # 2.22 X10^3/ul (0.83-4.51); Lymphocyte % 24.4 % (19-41); Mean Corp Hgb Conc 32.2 g/dL (32-36); Mean Corpuscular Hgb 29.9 pg (27.0-32.0); Mean Corpuscular Volume 92.8 fL (80-94); Mean Platelet Vol. 11.4 fl (6.2-12.0); Monocyte# 0.88 X10^3/uL; Monocyte% 9.7 % (0-10); NRBC Flagged by Analyzer 0 % (0-5); Neutrophil # 5.87 X10^3/uL (2.7-7.7); Neutrophil % 64.5 % (47-70); Platelet Count 201 K/mm3 (150-450); RBC Distribution Width SD 43.9 fl (35.1-43.9); Red Blood Count 4.85 M/mm3 (4.6-6.2); White Blood Count 9.1 K/mm3 (4.4-11.0)
== END | disposition home or self-care (01) ==
LOC: OLS.SANC 05:00
PROVIDERS: Visit Provider Internal Medicine
DX: Z79.899 Other long term (current) drug therapy (principal)
CPT/HCPCS: 36415; 85025

== ENCOUNTER → 2024-05-13 | Outpatient (REF) | payer MEDICAID, SELFPAY ==
[2024-05-13 08:32] LABS: Absolute Neutrophil Count 6.2 X10^3/uL (2.0-7.7); Basophil# 0.05 X10^3/uL; Basophil% 0.5 % (0-1); Eosinophil# 0.05 X10^3/uL; Eosinophils% 0.5 % (0-5); Hematocrit 42.5 % (40-54); Hemoglobin 14.2 g/dL (13.0-16.5); Lymphocyte % 22.8 % (19-41); Mean Corp Hgb Conc 33.4 g/dL (32-36); Mean Corpuscular Hgb 30.3 pg (27.0-32.0); Mean Corpuscular Volume 90.6 fL (80-94); Mean Platelet Vol. 11.1 fl (6.2-12.0); Monocyte% 8.7 % (0-10); NRBC Flagged by Analyzer 0 % (0-5); Neutrophil # 6.19 X10^3/uL (2.7-7.7); Neutrophil % 67.2 % (47-70); Platelet Count 218 K/mm3 (150-450); RBC Distribution Width CV 12.9 % (11.6-14.6); RBC Distribution Width SD 42.3 fl (35.1-43.9); Red Blood Count 4.69 M/mm3 (4.6-6.2); White Blood Count 9.2 K/mm3 (4.4-11.0)
== END | disposition home or self-care (01) ==
LOC: OLS.SANC 04:00
PROVIDERS: Referring Provider Internal Medicine; Visit Provider Internal Medicine
DX: F20.9 Schizophrenia, unspecified (principal); Z79.899 Other long term (current) drug therapy
CPT/HCPCS: 36415; 85025

== ENCOUNTER → 2024-05-20 | Outpatient (REF) | payer MEDICAID, SELFPAY ==
[2024-05-20 10:55] LABS: Absolute Lymphocyte Count 1.73 X10^3/uL (0.83-4.51); Basophil# 0.05 X10^3/uL; Basophil% 0.5 % (0-1); Eosinophil# 0.05 X10^3/uL; Eosinophils% 0.5 % (0-5); Hematocrit 43.6 % (40-54); Hemoglobin 14.4 g/dL (13.0-16.5); Lymphocyte # 1.73 X10^3/ul (0.83-4.51); Lymphocyte % 17.7 % (19-41); Mean Corpuscular Hgb 30.4 pg (27.0-32.0); Mean Platelet Vol. 10.7 fl (6.2-12.0); Monocyte# 0.92 X10^3/uL; Monocyte% 9.4 % (0-10); NRBC Flagged by Analyzer 0 % (0-5); Neutrophil % 71.4 % (47-70); Platelet Count 239 K/mm3 (150-450); RBC Distribution Width CV 12.6 % (11.6-14.6); RBC Distribution Width SD 42.5 fl (35.1-43.9); Red Blood Count 4.74 M/mm3 (4.6-6.2); White Blood Count 9.8 K/mm3 (4.4-11.0)
== END | disposition home or self-care (01) ==
LOC: OLS.SANC 05:00
PROVIDERS: Visit Provider Internal Medicine
DX: Z79.899 Other long term (current) drug therapy (principal)
CPT/HCPCS: 36415; 85025

== ENCOUNTER → 2024-05-27 | Outpatient (REF) | payer MEDICAID, SELFPAY ==
[2024-05-27 08:27] LABS: Absolute Lymphocyte Count 1.81 X10^3/uL (0.83-4.51); Basophil# 0.04 X10^3/uL; Basophil% 0.5 % (0-1); Eosinophil# 0.04 X10^3/uL; Eosinophils% 0.5 % (0-5); Hematocrit 39.8 % (40-54); Hemoglobin 13.2 g/dL (13.0-16.5); Lymphocyte # 1.81 X10^3/ul (0.83-4.51); Lymphocyte % 24.4 % (19-41); Mean Corp Hgb Conc 33.2 g/dL (32-36); Mean Corpuscular Hgb 30.2 pg (27.0-32.0); Mean Corpuscular Volume 91.1 fL (80-94); Mean Platelet Vol. 10.3 fl (6.2-12.0); Monocyte# 0.52 X10^3/uL; NRBC Flagged by Analyzer 0 % (0-5); Neutrophil # 4.98 X10^3/uL (2.7-7.7); Neutrophil % 67.2 % (47-70); Platelet Count 239 K/mm3 (150-450); RBC Distribution Width CV 12.8 % (11.6-14.6); RBC Distribution Width SD 42.5 fl (35.1-43.9); Red Blood Count 4.37 M/mm3 (4.6-6.2); White Blood Count 7.4 K/mm3 (4.4-11.0)
== END | disposition home or self-care (01) ==
LOC: OLS.SANC 05:00
PROVIDERS: Visit Provider Internal Medicine
DX: F20.9 Schizophrenia, unspecified (principal); Z79.899 Other long term (current) drug therapy
CPT/HCPCS: 36415; 85025

== ENCOUNTER → 2024-06-03 | Outpatient (REF) | payer MEDICAID, SELFPAY ==
[2024-06-03 09:51] LABS: Absolute Lymphocyte Count 1.94 X10^3/uL (0.83-4.51); Absolute Neutrophil Count 9.5 X10^3/uL (2.0-7.7); Basophil# 0.06 X10^3/uL; Basophil% 0.5 % (0-1); Eosinophil# 0.04 X10^3/uL; Eosinophils% 0.3 % (0-5); Hematocrit 40.1 % (40-54); Hemoglobin 13.2 g/dL (13.0-16.5); Lymphocyte # 1.94 X10^3/ul (0.83-4.51); Lymphocyte % 15.7 % (19-41); Mean Corp Hgb Conc 32.9 g/dL (32-36); Mean Corpuscular Hgb 30.1 pg (27.0-32.0); Mean Corpuscular Volume 91.3 fL (80-94); Mean Platelet Vol. 11.1 fl (6.2-12.0); Monocyte# 0.81 X10^3/uL; Monocyte% 6.6 % (0-10); NRBC Flagged by Analyzer 0 % (0-5); Neutrophil # 9.45 X10^3/uL (2.7-7.7); Neutrophil % 76.5 % (47-70); Platelet Count 249 K/mm3 (150-450); RBC Distribution Width SD 42.8 fl (35.1-43.9); Red Blood Count 4.39 M/mm3 (4.6-6.2); White Blood Count 12.4 K/mm3 (4.4-11.0)
== END | disposition home or self-care (01) ==
LOC: OLS.SANC 05:00
PROVIDERS: Visit Provider Internal Medicine
DX: N40.0 Benign prostatic hyperplasia without lower urinary tract symptoms (principal); J95.821 Acute postprocedural respiratory failure
CPT/HCPCS: 36415; 85025

== ENCOUNTER → 2024-06-07 | Outpatient (REF) | payer MEDICAID, SELFPAY ==
[2024-06-07 08:41] LABS: Red Blood Cells-Urine 0 SEEN /hpf (0-5)
[2024-06-07 08:51] LABS: Color, Urine Yellow (Yellow); Glucose, Dipstick Normal (Normal); Ketone-Dipstick Negative (Negative); Leukocyte Esterase-Dipstick Negative /ul (Negative); Nitrite-Dipstick Negative (Negative); Occult Blood-Urine Negative /ul (Negative); Protein-Dipstick 15 mg/dl (Negative); Urine Bilirubin Dipstick Negative (Negative); Urine Clarity Clear (Clear); Urine Urobilinogen 1 mg/dl (Normal)
[2024-06-07 08:53] LABS: Hematocrit 39.3 % (40-54); Mean Corp Hgb Conc 33.1 g/dL (32-36); Mean Corpuscular Hgb 30.2 pg (27.0-32.0); Mean Corpuscular Volume 91.2 fL (80-94); Mean Platelet Vol. 10.8 fl (6.2-12.0); Platelet Count 251 K/mm3 (150-450); RBC Distribution Width SD 43.7 fl (35.1-43.9); Red Blood Count 4.31 M/mm3 (4.6-6.2); White Blood Count 9.9 K/mm3 (4.4-11.0)
[2024-06-07 09:13] LABS: Bacteria 2+ /hpf (None Seen); Squamous Epithelial Cells - UA 0-5 SEEN /hpf (0-5); White Blood Cells 0-5 SEEN /hpf (0-5); Yeast-Urine 1+ /hpf (None Seen)
[2024-06-07 10:20] LABS: Mucous, Urine 0 SEEN /hpf (<or=2+)
== END | disposition home or self-care (01) ==
LOC: OLS.SANC 05:00
PROVIDERS: Visit Provider Internal Medicine
DX: Z79.899 Other long term (current) drug therapy (principal)
CPT/HCPCS: 36415; 81001; 85027; 87077; 87086; 87088; 87186

== ENCOUNTER → 2024-06-10 | Outpatient (REF) | payer MEDICAID, SELFPAY ==
[2024-06-10 09:21] LABS: Absolute Lymphocyte Count 2.38 X10^3/uL (0.83-4.51); Absolute Neutrophil Count 5.3 X10^3/uL (2.0-7.7); Basophil# 0.06 X10^3/uL; Basophil% 0.7 % (0-1); Eosinophil# 0.06 X10^3/uL; Eosinophils% 0.7 % (0-5); Hematocrit 41.1 % (40-54); Hemoglobin 13.5 g/dL (13.0-16.5); Lymphocyte # 2.38 X10^3/ul (0.83-4.51); Lymphocyte % 27.5 % (19-41); Mean Corp Hgb Conc 32.8 g/dL (32-36); Mean Corpuscular Hgb 30.1 pg (27.0-32.0); Mean Corpuscular Volume 91.7 fL (80-94); Monocyte# 0.83 X10^3/uL; Monocyte% 9.6 % (0-10); NRBC Flagged by Analyzer 0 % (0-5); Neutrophil # 5.27 X10^3/uL (2.7-7.7); Platelet Count 261 K/mm3 (150-450); RBC Distribution Width CV 13.1 % (11.6-14.6); RBC Distribution Width SD 43.2 fl (35.1-43.9); Red Blood Count 4.48 M/mm3 (4.6-6.2); White Blood Count 8.6 K/mm3 (4.4-11.0)
== END | disposition home or self-care (01) ==
LOC: OLS.SANC 05:00
PROVIDERS: Visit Provider Internal Medicine
DX: F20.9 Schizophrenia, unspecified (principal); Z79.899 Other long term (current) drug therapy
CPT/HCPCS: 36415; 85025

== ENCOUNTER → 2024-06-17 | Outpatient (REF) | payer MEDICAID, SELFPAY ==
[2024-06-17 09:25] LABS: Absolute Neutrophil Count 5.1 X10^3/uL (2.0-7.7); Basophil# 0.09 X10^3/uL; Basophil% 1.1 % (0-1); Eosinophil# 0.28 X10^3/uL; Eosinophils% 3.4 % (0-5); Hematocrit 39.3 % (40-54); Hemoglobin 12.8 g/dL (13.0-16.5); Lymphocyte % 24.5 % (19-41); Mean Corp Hgb Conc 32.6 g/dL (32-36); Mean Corpuscular Hgb 29.6 pg (27.0-32.0); Mean Corpuscular Volume 90.8 fL (80-94); Mean Platelet Vol. 10.9 fl (6.2-12.0); Monocyte# 0.72 X10^3/uL; Monocyte% 8.8 % (0-10); NRBC Flagged by Analyzer 0 % (0-5); Neutrophil # 5.05 X10^3/uL (2.7-7.7); Platelet Count 218 K/mm3 (150-450); RBC Distribution Width CV 13.3 % (11.6-14.6); Red Blood Count 4.33 M/mm3 (4.6-6.2); White Blood Count 8.2 K/mm3 (4.4-11.0)
== END | disposition home or self-care (01) ==
LOC: OLS.SANC 05:00
PROVIDERS: Visit Provider Internal Medicine
DX: J95.821 Acute postprocedural respiratory failure (principal); Z79.899 Other long term (current) drug therapy
CPT/HCPCS: 36415; 85025

== ENCOUNTER → 2024-06-24 | Outpatient (REF) | payer MEDICAID, SELFPAY ==
[2024-06-24 09:45] LABS: Absolute Lymphocyte Count 1.65 X10^3/uL (0.83-4.51); Absolute Neutrophil Count 10.2 X10^3/uL (2.0-7.7); Basophil# 0.06 X10^3/uL; Basophil% 0.5 % (0-1); Eosinophils% 0.8 % (0-5); Hematocrit 41.8 % (40-54); Hemoglobin 13.6 g/dL (13.0-16.5); Lymphocyte # 1.65 X10^3/ul (0.83-4.51); Lymphocyte % 12.8 % (19-41); Mean Corp Hgb Conc 32.5 g/dL (32-36); Mean Corpuscular Hgb 30.2 pg (27.0-32.0); Mean Corpuscular Volume 92.7 fL (80-94); Mean Platelet Vol. 11.3 fl (6.2-12.0); Monocyte# 0.82 X10^3/uL; Monocyte% 6.4 % (0-10); NRBC Flagged by Analyzer 0 % (0-5); Neutrophil # 10.19 X10^3/uL (2.7-7.7); POSITIVE COUNT YES; Platelet Count 171 K/mm3 (150-450); RBC Distribution Width CV 13.2 % (11.6-14.6); RBC Distribution Width SD 45.1 fl (35.1-43.9); Red Blood Count 4.51 M/mm3 (4.6-6.2); White Blood Count 12.9 K/mm3 (4.4-11.0)
[2024-06-24 21:21] LABS: Anion Gap 8 (5-15); BUN 15 mg/dL (7-18); BUN/Creat Ratio 24.9 RATIO (10-20); Calcium,Total 8.3 mg/dL (8.5-10.1); Chloride 107 mmol/L (98-107); EST Glomerular Filtration Rate 142 mL/min (>60); Est Glom Filt Rate - Afr Amer 172 mL/min (>60); Glucose 101 mg/dL (74-106); Potassium 4.1 mmol/L (3.5-5.1); Sodium Level 139 mmol/L (136-145)
== END | disposition home or self-care (01) ==
LOC: OLS.SANC 05:00
PROVIDERS: Visit Provider Internal Medicine
DX: N40.0 Benign prostatic hyperplasia without lower urinary tract symptoms (principal); J95.821 Acute postprocedural respiratory failure; F20.89 Other schizophrenia; N31.9 Neuromuscular dysfunction of bladder, unspecified; Z79.899 Other long term (current) drug therapy
CPT/HCPCS: 36415; 80048; 85025

== ENCOUNTER → 2024-06-27 | Outpatient (REF) | payer MEDICAID, SELFPAY ==
[2024-06-27 08:20] LABS: Bacteria 0 SEEN /hpf (None Seen); Mucous, Urine 0 SEEN /hpf (<or=2+); Squamous Epithelial Cells - UA 0 SEEN /hpf (0-5); White Blood Cells 0 SEEN /hpf (0-5)
[2024-06-27 08:39] LABS: Color, Urine Yellow (Yellow); Glucose, Dipstick Normal (Normal); Ketone-Dipstick Negative (Negative); Leukocyte Esterase-Dipstick Negative /ul (Negative); Nitrite-Dipstick Negative (Negative); Occult Blood-Urine Negative /ul (Negative); Protein-Dipstick 15 mg/dl (Negative); Urine Bilirubin Dipstick Negative (Negative); Urine Clarity Clear (Clear); Urine Urobilinogen 4 mg/dl (Normal)
[2024-06-27 14:21] LABS: Red Blood Cells-Urine 0 SEEN /hpf (0-5)
== END | disposition home or self-care (01) ==
LOC: OLS.SANC 02:00
PROVIDERS: Visit Provider Internal Medicine
DX: R41.82 Altered mental status, unspecified (principal)
CPT/HCPCS: 81001; 87077; 87086; 87088; 87186

== ENCOUNTER → 2024-07-01 | Outpatient (REF) | payer MEDICAID, SELFPAY ==
[2024-07-01 08:29] LABS: Absolute Lymphocyte Count 2.03 X10^3/uL (0.83-4.51); Basophil# 0.06 X10^3/uL; Basophil% 0.6 % (0-1); Eosinophil# 0.13 X10^3/uL; Eosinophils% 1.3 % (0-5); Hematocrit 41.7 % (40-54); Hemoglobin 13.6 g/dL (13.0-16.5); Lymphocyte # 2.03 X10^3/ul (0.83-4.51); Lymphocyte % 20.3 % (19-41); Mean Corp Hgb Conc 32.6 g/dL (32-36); Mean Corpuscular Hgb 29.6 pg (27.0-32.0); Mean Corpuscular Volume 90.8 fL (80-94); Monocyte# 0.68 X10^3/uL; Monocyte% 6.8 % (0-10); NRBC Flagged by Analyzer 0 % (0-5); Neutrophil # 7.03 X10^3/uL (2.7-7.7); Neutrophil % 70.5 % (47-70); Platelet Count 208 K/mm3 (150-450); RBC Distribution Width CV 13.1 % (11.6-14.6); RBC Distribution Width SD 42.8 fl (35.1-43.9); Red Blood Count 4.59 M/mm3 (4.6-6.2)
== END | disposition home or self-care (01) ==
LOC: OLS.SANC 04:00
PROVIDERS: Referring Provider Internal Medicine; Visit Provider Internal Medicine
DX: Z79.899 Other long term (current) drug therapy (principal)
CPT/HCPCS: 36415; 85025

== ENCOUNTER → 2024-07-08 | Outpatient (REF) | payer MEDICAID, SELFPAY ==
[2024-07-08 08:26] LABS: Absolute Lymphocyte Count 2.02 X10^3/uL (0.83-4.51); Absolute Neutrophil Count 7.2 X10^3/uL (2.0-7.7); Basophil# 0.06 X10^3/uL; Basophil% 0.6 % (0-1); Eosinophil# 0.15 X10^3/uL; Eosinophils% 1.5 % (0-5); Hematocrit 40.6 % (40-54); Hemoglobin 13.6 g/dL (13.0-16.5); Lymphocyte # 2.02 X10^3/ul (0.83-4.51); Lymphocyte % 19.7 % (19-41); Mean Corp Hgb Conc 33.5 g/dL (32-36); Mean Corpuscular Hgb 30.5 pg (27.0-32.0); Mean Platelet Vol. 11.1 fl (6.2-12.0); Monocyte# 0.76 X10^3/uL; Monocyte% 7.4 % (0-10); NRBC Flagged by Analyzer 0 % (0-5); Neutrophil # 7.21 X10^3/uL (2.7-7.7); Neutrophil % 70.3 % (47-70); Platelet Count 207 K/mm3 (150-450); RBC Distribution Width CV 12.9 % (11.6-14.6); RBC Distribution Width SD 42.5 fl (35.1-43.9); Red Blood Count 4.46 M/mm3 (4.6-6.2); White Blood Count 10.3 K/mm3 (4.4-11.0)
== END | disposition home or self-care (01) ==
LOC: OLS.SANC 05:00
PROVIDERS: Visit Provider Internal Medicine
DX: F29 Unspecified psychosis not due to a substance or known physiological condition (principal); Z79.899 Other long term (current) drug therapy
CPT/HCPCS: 36415; 85025

== ENCOUNTER → 2024-07-15 | Outpatient (REF) | payer MEDICAID, SELFPAY ==
[2024-07-15 09:04] LABS: Absolute Neutrophil Count 6.9 X10^3/uL (2.0-7.7); Basophil# 0.05 X10^3/uL; Basophil% 0.5 % (0-1); Eosinophil# 0.12 X10^3/uL; Eosinophils% 1.2 % (0-5); Hemoglobin 13.4 g/dL (13.0-16.5); Mean Corp Hgb Conc 32.7 g/dL (32-36); Mean Corpuscular Hgb 29.7 pg (27.0-32.0); Mean Corpuscular Volume 90.9 fL (80-94); Mean Platelet Vol. 11.4 fl (6.2-12.0); Monocyte# 0.76 X10^3/uL; Monocyte% 7.6 % (0-10); NRBC Flagged by Analyzer 0 % (0-5); Neutrophil # 6.92 X10^3/uL (2.7-7.7); Neutrophil % 69.4 % (47-70); Platelet Count 206 K/mm3 (150-450); RBC Distribution Width CV 12.9 % (11.6-14.6); RBC Distribution Width SD 42.3 fl (35.1-43.9); Red Blood Count 4.51 M/mm3 (4.6-6.2)
== END | disposition home or self-care (01) ==
LOC: OLS.SANC 05:00
PROVIDERS: Visit Provider Internal Medicine
DX: Z79.899 Other long term (current) drug therapy (principal)
CPT/HCPCS: 36415; 85025

== ENCOUNTER → 2024-07-16 | Outpatient (REF) | payer MEDICAID, SELFPAY ==
[2024-07-16 08:23] LABS: Vitamin D,25 Hydroxy 21.8 ng/mL (30-100)
== END | disposition home or self-care (01) ==
LOC: OLS.SANC 04:00
PROVIDERS: Referring Provider Internal Medicine; Visit Provider Internal Medicine
DX: E55.9 Vitamin D deficiency, unspecified (principal)
CPT/HCPCS: 36415; 82306

== ENCOUNTER → 2024-07-22 | Outpatient (REF) | payer MEDICAID, SELFPAY ==
[2024-07-22 10:26] LABS: Absolute Neutrophil Count 5.2 X10^3/uL (2.0-7.7); Basophil# 0.05 X10^3/uL; Basophil% 0.6 % (0-1); Eosinophil# 0.07 X10^3/uL; Eosinophils% 0.9 % (0-5); Hematocrit 41.4 % (40-54); Hemoglobin 13.5 g/dL (13.0-16.5); Lymphocyte % 23.9 % (19-41); Mean Corp Hgb Conc 32.6 g/dL (32-36); Mean Corpuscular Hgb 29.8 pg (27.0-32.0); Mean Corpuscular Volume 91.4 fL (80-94); Mean Platelet Vol. 11.5 fl (6.2-12.0); Monocyte# 0.75 X10^3/uL; Monocyte% 9.4 % (0-10); NRBC Flagged by Analyzer 0 % (0-5); Neutrophil # 5.17 X10^3/uL (2.7-7.7); Neutrophil % 64.9 % (47-70); Platelet Count 202 K/mm3 (150-450); RBC Distribution Width CV 12.9 % (11.6-14.6); RBC Distribution Width SD 42.7 fl (35.1-43.9); Red Blood Count 4.53 M/mm3 (4.6-6.2)
== END | disposition home or self-care (01) ==
LOC: OLS.SANC 05:00
PROVIDERS: Visit Provider Internal Medicine
DX: F20.89 Other schizophrenia (principal); Z79.899 Other long term (current) drug therapy
CPT/HCPCS: 36415; 85025

== ENCOUNTER → 2024-07-29 | Outpatient (REF) | payer MEDICAID, SELFPAY ==
[2024-07-29 08:44] LABS: Absolute Lymphocyte Count 1.93 X10^3/uL (0.83-4.51); Absolute Neutrophil Count 6.8 X10^3/uL (2.0-7.7); Basophil# 0.05 X10^3/uL; Basophil% 0.5 % (0-1); Eosinophil# 0.07 X10^3/uL; Eosinophils% 0.7 % (0-5); Hematocrit 40.7 % (40-54); Hemoglobin 13.5 g/dL (13.0-16.5); Lymphocyte # 1.93 X10^3/ul (0.83-4.51); Lymphocyte % 20.2 % (19-41); Mean Corp Hgb Conc 33.2 g/dL (32-36); Mean Corpuscular Hgb 29.9 pg (27.0-32.0); Mean Platelet Vol. 11.2 fl (6.2-12.0); Monocyte# 0.68 X10^3/uL; Monocyte% 7.1 % (0-10); NRBC Flagged by Analyzer 0 % (0-5); Neutrophil % 71.1 % (47-70); Platelet Count 218 K/mm3 (150-450); RBC Distribution Width CV 12.8 % (11.6-14.6); RBC Distribution Width SD 41.9 fl (35.1-43.9); Red Blood Count 4.52 M/mm3 (4.6-6.2); White Blood Count 9.6 K/mm3 (4.4-11.0)
== END | disposition home or self-care (01) ==
LOC: OLS.SANC 05:00
PROVIDERS: Visit Provider Internal Medicine
DX: Z79.899 Other long term (current) drug therapy (principal)
CPT/HCPCS: 36415; 85025

== ENCOUNTER → 2024-08-05 | Outpatient (REF) | payer MEDICAID, SELFPAY ==
[2024-08-05 10:09] LABS: Absolute Lymphocyte Count 2.31 X10^3/uL (0.83-4.51); Absolute Neutrophil Count 5.4 X10^3/uL (2.0-7.7); Basophil# 0.05 X10^3/uL; Basophil% 0.6 % (0-1); Eosinophil# 0.07 X10^3/uL; Eosinophils% 0.8 % (0-5); Hematocrit 41.6 % (40-54); Hemoglobin 13.7 g/dL (13.0-16.5); Lymphocyte # 2.31 X10^3/ul (0.83-4.51); Lymphocyte % 26.9 % (19-41); Mean Corp Hgb Conc 32.9 g/dL (32-36); Mean Corpuscular Hgb 30.1 pg (27.0-32.0); Mean Corpuscular Volume 91.4 fL (80-94); Mean Platelet Vol. 11.1 fl (6.2-12.0); Monocyte# 0.71 X10^3/uL; Monocyte% 8.3 % (0-10); NRBC Flagged by Analyzer 0 % (0-5); Neutrophil # 5.43 X10^3/uL (2.7-7.7); Neutrophil % 63.1 % (47-70); Platelet Count 199 K/mm3 (150-450); RBC Distribution Width CV 12.7 % (11.6-14.6); RBC Distribution Width SD 42.5 fl (35.1-43.9); Red Blood Count 4.55 M/mm3 (4.6-6.2); White Blood Count 8.6 K/mm3 (4.4-11.0)
== END | disposition home or self-care (01) ==
LOC: OLS.SANC 05:00
PROVIDERS: Visit Provider Internal Medicine
DX: F20.9 Schizophrenia, unspecified (principal); Z79.899 Other long term (current) drug therapy
CPT/HCPCS: 36415; 85025

== ENCOUNTER → 2024-08-12 | Outpatient (REF) | payer MEDICAID, SELFPAY ==
[2024-08-12 09:01] LABS: Absolute Lymphocyte Count 2.09 X10^3/uL (0.83-4.51); Basophil# 0.04 X10^3/uL; Basophil% 0.5 % (0-1); Eosinophil# 0.07 X10^3/uL; Eosinophils% 0.9 % (0-5); Hematocrit 41.9 % (40-54); Hemoglobin 14.1 g/dL (13.0-16.5); Lymphocyte # 2.09 X10^3/ul (0.83-4.51); Mean Corp Hgb Conc 33.7 g/dL (32-36); Mean Corpuscular Hgb 30.3 pg (27.0-32.0); Mean Corpuscular Volume 90.1 fL (80-94); Mean Platelet Vol. 11.2 fl (6.2-12.0); Monocyte# 0.55 X10^3/uL; Monocyte% 7.1 % (0-10); NRBC Flagged by Analyzer 0 % (0-5); Neutrophil # 4.98 X10^3/uL (2.7-7.7); Neutrophil % 64.2 % (47-70); Platelet Count 188 K/mm3 (150-450); RBC Distribution Width CV 12.7 % (11.6-14.6); RBC Distribution Width SD 41.6 fl (35.1-43.9); Red Blood Count 4.65 M/mm3 (4.6-6.2); White Blood Count 7.8 K/mm3 (4.4-11.0)
== END | disposition home or self-care (01) ==
LOC: OLS.SANC 05:00
PROVIDERS: Visit Provider Internal Medicine
DX: Z79.899 Other long term (current) drug therapy (principal)
CPT/HCPCS: 36415; 85025

== ENCOUNTER → 2024-08-19 | Outpatient (REF) | payer MEDICAID, SELFPAY ==
[2024-08-19 09:40] LABS: Absolute Lymphocyte Count 1.97 X10^3/uL (0.83-4.51); Basophil# 0.04 X10^3/uL; Basophil% 0.5 % (0-1); Eosinophil# 0.08 X10^3/uL; Hemoglobin 13.6 g/dL (13.0-16.5); Lymphocyte # 1.97 X10^3/ul (0.83-4.51); Lymphocyte % 25.4 % (19-41); Mean Corp Hgb Conc 33.2 g/dL (32-36); Mean Corpuscular Hgb 30.2 pg (27.0-32.0); Mean Corpuscular Volume 91.1 fL (80-94); Mean Platelet Vol. 11.1 fl (6.2-12.0); Monocyte# 0.64 X10^3/uL; Monocyte% 8.2 % (0-10); NRBC Flagged by Analyzer 0 % (0-5); Neutrophil # 5.01 X10^3/uL (2.7-7.7); Neutrophil % 64.5 % (47-70); Platelet Count 207 K/mm3 (150-450); RBC Distribution Width CV 12.7 % (11.6-14.6); White Blood Count 7.8 K/mm3 (4.4-11.0)
== END | disposition home or self-care (01) ==
LOC: OLS.SANC 04:00
PROVIDERS: Referring Provider Internal Medicine; Visit Provider Internal Medicine
DX: F20.9 Schizophrenia, unspecified (principal); Z79.899 Other long term (current) drug therapy
CPT/HCPCS: 36415; 85025

== ENCOUNTER → 2024-08-23 | Outpatient (REF) | payer MEDICAID, SELFPAY ==
[2024-08-23 08:50] LABS: Hematocrit 42.2 % (40-54); Mean Corp Hgb Conc 33.2 g/dL (32-36); Mean Corpuscular Volume 90.6 fL (80-94); Mean Platelet Vol. 11.3 fl (6.2-12.0); Platelet Count 184 K/mm3 (150-450); RBC Distribution Width CV 12.7 % (11.6-14.6); RBC Distribution Width SD 41.8 fl (35.1-43.9); Red Blood Count 4.66 M/mm3 (4.6-6.2); White Blood Count 8.6 K/mm3 (4.4-11.0)
[2024-08-23 09:05] LABS: ALB/GLOB Ratio 1.4 RATIO (0.9-2.4); AST(SGOT) 17 U/L (<=37); Alanine Aminotransfer ALT/SGPT 13 U/L (<=46); Albumin, Serum 3.4 g/dL (3.4-4.8); Alkaline Phosphatase 101 U/L (40-129); Anion Gap 10 (5-15); BUN 14 mg/dL (4-19); BUN/Creat Ratio 21.4 RATIO (10-20); Calcium,Total 8.2 mg/dL (7.6-11.0); Carbon Dioxide 24.9 mmol/L (21.0-32.0); Chloride 106 mmol/L (98-108); Cholesterol 125 mg/dL (<=200); Creatinine, Serum 0.63 mg/dL (0.70-1.20); EST Glomerular Filtration Rate 104 (>60); Globulin 2.3 g/dL (2.2-4.2); Glucose 116 mg/dL (70-99); High Density Lipoprotein 24 mg/dL; Low Density Lipoprotein Calc. 62 mg/dL; Potassium 3.8 mmol/L (3.3-5.1); Protein, Total 5.7 g/dL (5.9-8.4); Sodium Level 141 mmol/L (133-145); Total Bilirubin 0.35 mg/dL (0.00-1.30); Triglycerides 198 mg/dL; Very Low Density Lipoprotein 40 mg/dL (5-40); cholesterol:hdl ratio screen 5.32
== END | disposition home or self-care (01) ==
LOC: OLS.SANC 05:00
PROVIDERS: Visit Provider Internal Medicine
DX: N40.0 Benign prostatic hyperplasia without lower urinary tract symptoms (principal); F20.9 Schizophrenia, unspecified; R27.9 Unspecified lack of coordination; J95.821 Acute postprocedural respiratory failure
CPT/HCPCS: 36415; 80053; 80061; 85027

== ENCOUNTER → 2024-08-26 | Outpatient (REF) | payer MEDICAID, SELFPAY ==
[2024-08-26 09:20] LABS: Absolute Lymphocyte Count 2.17 X10^3/uL (0.83-4.51); Absolute Neutrophil Count 5.7 X10^3/uL (2.0-7.7); Basophil# 0.05 X10^3/uL; Basophil% 0.6 % (0-1); Eosinophil# 0.07 X10^3/uL; Eosinophils% 0.8 % (0-5); Hematocrit 41.8 % (40-54); Hemoglobin 13.8 g/dL (13.0-16.5); Lymphocyte # 2.17 X10^3/ul (0.83-4.51); Lymphocyte % 25.1 % (19-41); Mean Corpuscular Hgb 29.7 pg (27.0-32.0); Mean Corpuscular Volume 90.1 fL (80-94); Mean Platelet Vol. 11.3 fl (6.2-12.0); Monocyte# 0.64 X10^3/uL; Monocyte% 7.4 % (0-10); NRBC Flagged by Analyzer 0 % (0-5); Neutrophil # 5.69 X10^3/uL (2.7-7.7); Neutrophil % 65.9 % (47-70); Platelet Count 196 K/mm3 (150-450); RBC Distribution Width CV 12.7 % (11.6-14.6); RBC Distribution Width SD 41.3 fl (35.1-43.9); Red Blood Count 4.64 M/mm3 (4.6-6.2); White Blood Count 8.6 K/mm3 (4.4-11.0)
== END | disposition home or self-care (01) ==
LOC: OLS.SANC 05:00
PROVIDERS: Visit Provider Internal Medicine
DX: Z79.899 Other long term (current) drug therapy (principal)
CPT/HCPCS: 36415; 85025

== ENCOUNTER → 2024-09-02 | Outpatient (REF) | payer MEDICAID, SELFPAY ==
[2024-09-02 10:01] LABS: Absolute Lymphocyte Count 2.07 X10^3/uL (0.83-4.51); Absolute Neutrophil Count 5.8 X10^3/uL (2.0-7.7); Basophil# 0.05 X10^3/uL; Basophil% 0.6 % (0-1); Eosinophil# 0.06 X10^3/uL; Eosinophils% 0.7 % (0-5); Hematocrit 44.5 % (40-54); Hemoglobin 14.9 g/dL (13.0-16.5); Lymphocyte # 2.07 X10^3/ul (0.83-4.51); Lymphocyte % 24.4 % (19-41); Mean Corp Hgb Conc 33.5 g/dL (32-36); Mean Corpuscular Hgb 29.9 pg (27.0-32.0); Mean Corpuscular Volume 89.4 fL (80-94); Mean Platelet Vol. 10.7 fl (6.2-12.0); Monocyte# 0.46 X10^3/uL; Monocyte% 5.4 % (0-10); NRBC Flagged by Analyzer 0 % (0-5); Neutrophil % 68.5 % (47-70); Platelet Count 189 K/mm3 (150-450); RBC Distribution Width CV 12.8 % (11.6-14.6); RBC Distribution Width SD 41.7 fl (35.1-43.9); Red Blood Count 4.98 M/mm3 (4.6-6.2); White Blood Count 8.5 K/mm3 (4.4-11.0)
== END | disposition home or self-care (01) ==
LOC: OLS.SANC 04:00
PROVIDERS: Referring Provider Internal Medicine; Visit Provider Internal Medicine
DX: F20.9 Schizophrenia, unspecified (principal); Z79.899 Other long term (current) drug therapy
CPT/HCPCS: 36415; 85025

== ENCOUNTER → 2024-09-09 | Outpatient (REF) | payer MEDICAID, SELFPAY ==
[2024-09-09 10:02] LABS: Absolute Lymphocyte Count 2.24 X10^3/uL (0.83-4.51); Absolute Neutrophil Count 8.7 X10^3/uL (2.0-7.7); Basophil# 0.05 X10^3/uL; Basophil% 0.4 % (0-1); Eosinophil# 0.06 X10^3/uL; Eosinophils% 0.5 % (0-5); Hematocrit 44.7 % (40-54); Hemoglobin 14.6 g/dL (13.0-16.5); Lymphocyte # 2.24 X10^3/ul (0.83-4.51); Lymphocyte % 19.1 % (19-41); Mean Corp Hgb Conc 32.7 g/dL (32-36); Mean Corpuscular Hgb 30.1 pg (27.0-32.0); Mean Corpuscular Volume 92.2 fL (80-94); Mean Platelet Vol. 11.6 fl (6.2-12.0); Monocyte% 5.1 % (0-10); NRBC Flagged by Analyzer 0 % (0-5); Neutrophil # 8.72 X10^3/uL (2.7-7.7); Neutrophil % 74.6 % (47-70); Platelet Count 189 K/mm3 (150-450); RBC Distribution Width SD 43.8 fl (35.1-43.9); Red Blood Count 4.85 M/mm3 (4.6-6.2); White Blood Count 11.7 K/mm3 (4.4-11.0)
== END | disposition home or self-care (01) ==
LOC: OLS.SANC 05:00
PROVIDERS: Visit Provider Internal Medicine
DX: F20.9 Schizophrenia, unspecified (principal); Z79.899 Other long term (current) drug therapy
CPT/HCPCS: 36415; 85025

== ENCOUNTER → 2024-09-11 | Outpatient (REF) | payer MEDICAID, SELFPAY ==
[2024-09-11 10:00] LABS: Hematocrit 42.7 % (40-54); Mean Corp Hgb Conc 32.8 g/dL (32-36); Mean Corpuscular Volume 91.4 fL (80-94); Mean Platelet Vol. 11.3 fl (6.2-12.0); Platelet Count 191 K/mm3 (150-450); RBC Distribution Width CV 13.2 % (11.6-14.6); RBC Distribution Width SD 43.7 fl (35.1-43.9); Red Blood Count 4.67 M/mm3 (4.6-6.2); White Blood Count 7.6 K/mm3 (4.4-11.0)
[2024-09-11 10:14] LABS: Anion Gap 11 (5-15); BUN 13 mg/dL (4-19); Calcium,Total 8.7 mg/dL (7.6-11.0); Carbon Dioxide 25.9 mmol/L (21.0-32.0); Chloride 104 mmol/L (98-108); Creatinine, Serum 0.58 mg/dL (0.70-1.20); EST Glomerular Filtration Rate 107 (>60); Glucose 113 mg/dL (70-99); Potassium 3.8 mmol/L (3.3-5.1); Sodium Level 141 mmol/L (133-145)
== END | disposition home or self-care (01) ==
LOC: OLS.SANC 05:00
PROVIDERS: Visit Provider Internal Medicine
DX: Z79.899 Other long term (current) drug therapy (principal)
CPT/HCPCS: 36415; 80048; 85027

== ENCOUNTER → 2024-09-16 | Outpatient (REF) | payer MEDICAID, SELFPAY ==
[2024-09-16 08:53] LABS: Absolute Lymphocyte Count 2.44 X10^3/uL (0.83-4.51); Absolute Neutrophil Count 5.5 X10^3/uL (2.0-7.7); Basophil# 0.07 X10^3/uL; Basophil% 0.8 % (0-1); Eosinophil# 0.06 X10^3/uL; Eosinophils% 0.7 % (0-5); Hematocrit 46.8 % (40-54); Hemoglobin 15.4 g/dL (13.0-16.5); Lymphocyte # 2.44 X10^3/ul (0.83-4.51); Lymphocyte % 27.7 % (19-41); Mean Corp Hgb Conc 32.9 g/dL (32-36); Mean Corpuscular Hgb 30.1 pg (27.0-32.0); Mean Corpuscular Volume 91.4 fL (80-94); Mean Platelet Vol. 10.6 fl (6.2-12.0); Monocyte# 0.75 X10^3/uL; Monocyte% 8.5 % (0-10); NRBC Flagged by Analyzer 0 % (0-5); Neutrophil # 5.48 X10^3/uL (2.7-7.7); Neutrophil % 62.1 % (47-70); Platelet Count 190 K/mm3 (150-450); RBC Distribution Width CV 13.1 % (11.6-14.6); RBC Distribution Width SD 43.3 fl (35.1-43.9); Red Blood Count 5.12 M/mm3 (4.6-6.2); White Blood Count 8.8 K/mm3 (4.4-11.0)
== END | disposition home or self-care (01) ==
LOC: OLS.SANC 05:00
PROVIDERS: Visit Provider Internal Medicine
DX: F20.9 Schizophrenia, unspecified (principal); Z79.899 Other long term (current) drug therapy
CPT/HCPCS: 36415; 85025

== ENCOUNTER → 2024-09-24 | Outpatient (REF) | payer MEDICAID, SELFPAY ==
[2024-09-24 09:00] LABS: Absolute Lymphocyte Count 1.97 X10^3/uL (0.83-4.51); Absolute Neutrophil Count 6.8 X10^3/uL (2.0-7.7); Basophil# 0.05 X10^3/uL; Basophil% 0.5 % (0-1); Eosinophil# 0.05 X10^3/uL; Eosinophils% 0.5 % (0-5); Hematocrit 40.4 % (40-54); Hemoglobin 13.4 g/dL (13.0-16.5); Lymphocyte # 1.97 X10^3/ul (0.83-4.51); Lymphocyte % 20.5 % (19-41); Mean Corp Hgb Conc 33.2 g/dL (32-36); Mean Corpuscular Hgb 29.9 pg (27.0-32.0); Mean Corpuscular Volume 90.2 fL (80-94); Mean Platelet Vol. 11.3 fl (6.2-12.0); Monocyte# 0.69 X10^3/uL; Monocyte% 7.2 % (0-10); NRBC Flagged by Analyzer 0 % (0-5); Neutrophil # 6.81 X10^3/uL (2.7-7.7); Platelet Count 187 K/mm3 (150-450); RBC Distribution Width CV 13.1 % (11.6-14.6); RBC Distribution Width SD 42.9 fl (35.1-43.9); Red Blood Count 4.48 M/mm3 (4.6-6.2); White Blood Count 9.6 K/mm3 (4.4-11.0)
== END | disposition home or self-care (01) ==
LOC: OLS.SANC 04:00
PROVIDERS: Referring Provider Internal Medicine; Visit Provider Internal Medicine
DX: F20.9 Schizophrenia, unspecified (principal); Z79.899 Other long term (current) drug therapy
CPT/HCPCS: 36415; 85025

== ENCOUNTER → 2024-09-30 05:00 | Outpatient (REF) | payer MEDICAID, SELFPAY ==
[2024-09-30 08:40] LABS: Absolute Lymphocyte Count 3.13 X10^3/uL (0.83-4.51); Absolute Neutrophil Count 5.6 X10^3/uL (2.0-7.7); Basophil# 0.06 X10^3/uL; Basophil% 0.6 % (0-1); Eosinophil# 0.07 X10^3/uL; Eosinophils% 0.7 % (0-5); Hematocrit 46.9 % (40-54); Hemoglobin 15.3 g/dL (13.0-16.5); Lymphocyte # 3.13 X10^3/ul (0.83-4.51); Lymphocyte % 31.7 % (19-41); Mean Corp Hgb Conc 32.6 g/dL (32-36); Mean Corpuscular Hgb 29.7 pg (27.0-32.0); Mean Corpuscular Volume 91.1 fL (80-94); Mean Platelet Vol. 11.7 fl (6.2-12.0); Monocyte# 1.03 X10^3/uL; Monocyte% 10.4 % (0-10); NRBC Flagged by Analyzer 0 % (0-5); Neutrophil # 5.56 X10^3/uL (2.7-7.7); Neutrophil % 56.3 % (47-70); Platelet Count 208 K/mm3 (150-450); RBC Distribution Width SD 42.7 fl (35.1-43.9); Red Blood Count 5.15 M/mm3 (4.6-6.2); White Blood Count 9.9 K/mm3 (4.4-11.0)
== END ==
LOC: OLS.SANC 05:00
PROVIDERS: Visit Provider Internal Medicine
DX: Z79.899 Other long term (current) drug therapy (principal)
CPT/HCPCS: 36415; 85025

== ENCOUNTER → 2024-10-07 05:00 | Outpatient (REF) | payer MEDICAID, SELFPAY ==
--- OUTSIDE RECORDS SUMMARY | 2024-10-07 04:39 | XMS RPT_ITS | CCD ---
Author Organization [facility] Care Team Providers Care Stenocaptioner Name Role Phone JORDAN OREILLY Attending Unavailable PROVIDER, UNKNOWN Referring Unavailable Nathanael Cazares Primary Care Unavailable PROVIDER, UNKNOWN Referring Unavailable Nathanael Cazares Primary Care Unavailable Jaime Lindquist Attending Unavailable Unavailable Primary Care Provider UnavailBethany Navarrete Primary Care Provider [phone] Jarvis Kendall MD Unavailable [phone] Bethany Russell MD Primary Care Provider [phone] Unavailable Primary Care Provider Unavailclifton Latif MD, Jenn Edwin Primary Care Provider [phone] Unavailable Primary Care Provider UnavailRenard Mccann Primary Care Provider Unavailable Primary Care Provider UnavailRENARD Mccann Attending Unavailable RENARD BURGOS Referring Unavailable RENARD BURGOS Primary Care Unavailable RASHAAD SMITH Attending Unavailable RASHAAD SMITH Referring Unavailable RENARD BURGOS Primary Care Unavailable FEI FAROOQ Attending Unavailable Renard Jackson Attending Provider Unavailab gadiel KatsaRenard Ruiz Referring Provider Unavailab le KatsaRenard Ruiz Attending Provider Unavailab le KatsaRenard Ruiz Referring Provider Unavailab le [place] Renard GARLAND Attending Provider Unavailab le [place] Renard GARLAND Attending Provider Unavailab le [place] Renard GARLAND Attending Provider Unavailab le [place] Renard GARLAND Attending Provider Unavailab le [place] Renard GARLAND Attending Provider Unavailab le [place] Renard GARLAND Referring Provider Unavailab le KatsaRenard Ruiz Attending Provider Unavailab le Katsaros OLS, Renard Attending Unavailable Katsaros OLS, Renard Attending Unavailable Katsaros OLS, Renard Attending Unavailable Katsaros OLS, Renard Referring Unavailable Katsaros OLS, Renard Attending Unavailable Katsaros OLS, Renard Attending Unavailable Katsaros OLS, Peter Attending Unavailable Katsaros OLS, Peter Attending Unavailable Katsaros OLS, Peter Attending Unavailable Katsaros OLS, Renard Referring Unavailable Katsaros OLS, Renard Attending Unavailable Katsaros OLS, Renard Attending Unavailable Katsaros OLS, Renard Attending Unavailable Katsaros OLS, Renard Attending Unavailable Katsaros OLS, Renard Attending Unavailable Katsaros OLS, Renard Attending Unavailable Katsaros OLS, Renard Attending Unavailable Katsaros OLS, Renard Attending Unavailable Katsaros OLS, Renard Attending Unavailable Katsaros OLS, Renard Attending Unavailable Katsaros OLS, Renard Attending Unavailable Katsaros OLS, Renard Referring Unavailable Katsaros OLS, Renard Attending Unavailable Katsaros OLS, Renard Attending Unavailable Katsaros OLS, Peter Attending Unavailable Katsaros OLS, Renard Attending Unavailable Katsaros OLS, Renard Attending Unavailable Katsaros OLS, Renard Attending Unavailable Katsaros OLS, Renard Attending Unavailable Katsaros OLS, Peter Attending Unavailable Katsaros OLS, Peter Attending Unavailable Katsaros OLS, Peter Attending Unavailable Katsaros OLS, Renard Attending Unavailable Katsaros OLS, Renard Referring Unavailable Katsaros OLS, Renard Attending Unavailable Katsaros OLS, Renard Attending Unavailable Katsaros OLS, Renard Referring Unavailable Katsaros OLS, Renrad Attending Unavailable Katsaros OLS, Renard Attending Unavailable Katsaros OLS, Peter Attending Unavailable Katsaros OLS, Renard Attending Unavailable Katsaros OLS, Renard Attending Unavailable Katsaros OLS, Renard Attending Unavailable Katsaros OLS, Renard Attending Unavailable Katsaros OLS, Peter Attending Unavailable Katsaros OLS, Peter Attending Unavailable Katsaros OLS, Peter Referring Unavailable Katsaros OLS, Renard Attending Unavailable Katsaros OLS, Renard Attending Unavailable Katsaros OLS, Renard Attending Unavailable Katsaros OLS, Renard Attending Unavailable Katsaros OLS, Renard Referring Unavailable Katsaros OLS, Renard Attending Unavailable Katsaros OLS, Renard Attending Unavailable Katsaros OLS, Renard Attending Unavailable Katsaros OLS, Renard Attending Unavailable Katsaros OLS, Renard Attending Unavailable Katsaros OLS, Renard Attending Unavailable Katsaros OLS, Renard Attending Unavailable Katsaros OLS, Renard Attending Unavailable Katsaros OLS, Renard Attending Unavailable Katsaros OLS, Renard Attending Unavailable Katsaros OLS, Peter Attending Unavailable Renard Jackson Attending Unavailable Renard Jackson Attending Unavailable Renard Jackson Attending Unavailable Medications Current Medications Medication Drug Class(es) Dates Sig (Normalized) Sig (Original) Acetaminophen (18 sources) Start: 03-20-2021 acetaminophen (TYLENOL) tablet 650 mg Start: 05-22-2019 ACETAMINOPHEN 325 MG TABS 2 tablet via peg tube as needed ACETAMINOPHEN [id number] Ana Diesch FAMILY SERVICES SPECIALIST albuterol 0.83 mg/ml inhalation solution (1 source) beta2-Adrenergic Agonist Start: 03-19-2021 albut veronica (PROVENTIL) nebulizer solution 2.5 mg albuterol 0.833 mg/ml / ipratropium bromide 0.167 mg/ml inhalation solution (18 sources) Anticholinergic, beta2-Adrenergic Agonist Start: 03-20-2021 ipratropium-alb utero l (DUONEB) nebulizer solution 1 ampule Start: 05-22-2019 IPRATROPIUM-AL BUTEROL 0.5-2.5 (3) MG/3ML SOLN 3ml via nebulizer every 4 hours as needed IPRATROPIUM-ALBUTEROL [id number] Ana Diesch FAMILY SERVICES SPECIALIST Start: 08-22-2018 take 3 mL by inhalat ion every four hours ipratropium-albuterol (DUONEB) 0.5-2.5 (3) MG/3ML SOLN nebulizer solution Inhale 3 mLs into the lungs every 4 hours 360 mL 0 08/22/2018 Active aspirin 81 mg chewable tablet (9 sources) Platelet Aggregation Inhibitor, Nonsteroidal Anti-inflammatory Drug Start: 05-22-2019 ASPIRIN ADULT LOW STRENGTH 81 MG CHEW one tablet via peg tube daily ASPIRIN [id number] Ana Diesch FAMILY SERVICES SPECIALIST Start: 08-23-2018 aspirin 81 MG chewable tablet 1 tablet by Per NG tube route daily 30 tablet 3 08/23/2018 Active atorvastatin 40 mg oral tablet (9 sources) HMG-CoA Reductase Inhibitor Start: 05-22-2019 ATORVASTATIN CALCIUM 40 MG TABS one tablet via peg tube daily ATORVASTATIN CALCIUM [id number] Ana Diesch FAMILY SERVICES SPECIALIST Start: 08-22-2018 atorvastatin ( LIPITOR) 40 MG tablet 1 tablet by Per NG tube route nightly 30 tablet 3 08/22/2018 Active castor oil 0.788 mg/mg / [place] citizen balsam 0.087 mg/mg topical ointment (7 sources) Standardized Chemical Allergen Start: 08-22-2018 Balsam [place] (VENELEX) OINT ointment Apply topically every 8 hours 0 08/22/2018 Active cefepime (MAXIPIME) 2000 mg IVPB minibag (2 sources) Start: 03-24-2021 End: 03-24-2021 cefepime (MAXIPIME) 2000 mg IVPB minibag Start: 03-20-2021 End: 03-24-2021 cefepime (MAXIPIME) 2000 mg IVPB minibag cloZAPine 25 mg oral tablet (20 sources) Atypical Antipsychotic Start: 03-23-2021 cloZAPi ne (CLOZARIL) tablet 75 mg Start: 03-21-2021 End: 03-23-2021 cloZAPine (CLOZARIL) tablet 50 mg Start: 03-19-2021 End: 03-21-2021 100 mg, Per G Tube, 2 TIMES DAILY, First dose on Mon03/19/21 at 2323 Avoid changes in caffeine intake. Start: 05-22-2019 CLOZAPINE 200 MG TABS 250mg via peg tube twice daily CLOZAPINE [id number] [facility] Start: 08-22-2018 cloZAPine (AILYN ZARIL) 100 MG tablet 1 tablet by Per G Tube route 2 times daily 30 tablet 3 08/22/2018 Active cloZAPine (Cloza ril) 100 MG tablet Take 225 mg by mouth 2 times daily. Active take 1 tablet by [facility] once daily cloZAPine (Clozaril) 50 MG tablet Take 50 mg by mouth daily. Active docusate sodium 10 mg/ml ora l suspension (18 sources) Start: 05-22-2019 DOCU 50 MG/5ML LIQD 5ml via peg tube twice daily DOCUSATE SODIUM [id number] [facility] Start: 08-22-2018 docusate (COLA CE) 50 MG/5ML liquid 10 mLs by Per NG tube route 2 times daily 0 08/22/2018 Active take [address] [facility] twice daily docusate sodium (Colace) 100 MG capsule Take 100 mg by mouth 2 times daily. Active 0.3 ml enoxaparin sodium 100 mg/ml prefilled syringe (8 sources) Low Molecular Weight Heparin Start: 08-22-2018 enoxaparin (LOVENOX) 30 MG/0.3ML injection Inject 0.3 mLs into the skin 2 times daily 30 Syringe 0 08/22/2018 Active finasteride 5 mg oral tablet (9 sources) 5-alpha Reductase Inhibitor Start: 08-23-2018 take 1 tablet by mouth once daily finasteride (PROSCAR) 5 MG tablet Take 1 tablet by mouth daily 30 tablet 3 08/23/2018 Active lansoprazole 30 mg disintegrating oral tablet (1 source) Proton Pump Inhibitor Start: 03-21-2021 lansoprazole (PREVACID SOLUTAB) disintegrating tablet 30 mg melatonin 3 mg oral tablet (9 sources) Start: 05-22-2019 MELATONIN 3 MG TABS one tablet via peg tube nightly MELATONIN [id number] Ana Stveenson FAMILY SERVICES SPECIALIST Start: 08-22-2018 melatonin 3 MG TABS tablet 1 tablet by Per G Tube route nightly as needed (sleeplessness) 0 08/22/2018 Active Multiple Vitamins-Minerals (CENTRUM/CERTA-JAVIRE WITH MINERALS ORAL) solution (7 sources) Start: 08-23-2018 take 15 mL by mouth once daily Multiple Vitamins-Minerals (CENTRUM/CERTA-JAVIER WITH MINERALS ORAL) solution Take 15 mLs by mouth daily 0 08/23/2018 Active ondansetron (ZOFRAN-ODT) disintegrating tablet 4 mg (1 source) Start: 03-20-2021 ondansetron (ZOFRAN-ODT) disintegrating tablet 4 mg petrolatum 0.41 mg/mg topical ointment (7 sources) Start: 08-23-2018 mineral oil-hydrophilic petrolatum (AQUAPHOR) ointment Apply topically as needed. 0 08/23/2018 Active polyethylene glycol 3350 18695 mg powder for oral solution (1 source) Osmotic Laxative Start: 03-20-2021 17 g, Oral, DAILY PRN, Constipation, Starting on 03/20/21 at 0015 First line therapy for constipation potassium chloride 1.33 meq/ml oral solution (9 sources) take 20 mEq by mouth once daily Potassium Chloride 20 MEQ/15ML (10%) solution Take 20 mEq by mouth daily. Active predniSONE 20 mg oral tablet (2 sources) Start: 03-24-2021 End: 03-29-2021 take 2 tablets by mouth once daily predniSONE (DELTASONE) 20 MG tablet Take 2 tablets by mouth daily for 5 days 10 tablet 0 03/24/2021 03/29/2021 Active Start: 03-24-2021 predniSONE (DE LTASONE) tablet 40 mg risperiDONE 0.5 mg oral tablet (18 sources) Atypical Antipsychotic Start: 03-22-2021 risperi DONE (RISPERDAL) tablet 0.5 mg Start: 03-20-2021 End: 03-21-2021 take 0.5 mg by mouth once daily 0.5 mg, Oral, DAILY, F irst dose on 03/20/21 at 0900 take 1 tablet by edmar th twice daily risperiDONE (RisperDAL) 1 MG tablet Take 1 mg by mouth 2 times daily. Active take 1 tablet by edmar th once daily risperiDONE (RISPERDAL) 0.5 MG tablet Take 0.5 mg by mouth daily 0 Active sucralfate 100 mg/ml oral suspension (9 sources) Aluminum Complex take 1 g by mouth in the morning sucralfate (Carafate) 1 GM/10ML suspension Take 1 g by mouth in the morning and 1 g in the evening. Active tamsulosin hydrochloride 0.4 mg oral capsule (17 sources) alpha-Adrenergic Kisha Start: 9 take 1 capsule by mouth once daily tamsulosin (FLOMAX) 0.4 MG capsule Take 1 capsule by mouth daily 30 capsule 3 08/22/2018 Active thiamine 100 mg oral tablet (18 sources) Start: 0 take 100 mg by mouth once daily 100 mg, Oral, DAILY, First dose on 03/20/21 at 0900 traZODone hydrochloride 50 mg oral tablet (9 sources) Serotonin Reuptake Inhibitor take 1 tablet by mouth once daily traZODone (Desyrel) 50 MG tablet Take 50 mg by mouth Nightly. Active vitamin d 1000 unt oral tablet (1 source) take 1 tablet by mouth once daily vitamin D (CHOLECALCIFEROL) 1000 UNIT TABS tablet Take 1,000 Units by mouth daily 0 Active Completed/Discontinued Medications Medication Drug Class(es) Dates Sig (Normalized) Sig (Original) barium sulfate (Varibar [place], Varibar Honey) 40 % suspension 5 mL (2 sources) Start: 11-22-2023 End: 11-22-2023 take 5 mL by mouth once 5 mL, Oral, Once, On Mon11/22/23 at 1300, For 1 dose barium sulfate (Varibar Pudding) 40 % oral paste 5 mL (2 sources) Start: 11-22-2023 End: 11-22-2023 5 mL, Oral, Once, On Mon11/22/23 at 1300, For 1 dose, Administer with oral syringe or spoon. Max cumulative dose of 30 mL. Discard any unused product 21 days after tube opened. barium sulfate (Varibar THIN Liquid) 40 % suspension 5 mL (2 sources) Start: 11-22-2023 End: 11-22-2023 take 5 mL by mouth once 5 mL, Oral, Once, On Mon11/22/23 at 1300, For 1 dose bisacodyl 5 mg delayed release oral tablet (2 sources) Stimulant Laxative Start: 05-22-2019 DULCOLAX 10 MG SUPP every 24 hours as needed BISACODYL [id number] Ana Diesch FAMILY SERVICES SPECIALIST Start: 05-22-2019 BISACODYL EC 5 MG TBEC one tablet via peg tube daily as needed BISACODYL [id number] Ana Diesch FAMILY SERVICES SPECIALIST chlorhexidine gluconate 1.2 mg/ml mouthwash (10 sources) Start: 05-22-2019 PERIDEX 0.12 % SOLN 15ml twice daily CHLORHEXIDINE GLUCONATE [id number] [facility] (P eridex) 0.12 % solution Use 15 mL in the mouth or throat if needed for wound care. Active cholecalciferol 1000 unt oral tablet (16 sources) Vitamin D Start: 05-22-2019 VITAMIN D3 25 MCG (1000 UT) TABS one tablet via peg tube daily CHOLECALCIFEROL [id number] Ana Diesch FAMILY SERVICES SPECIALIST cholecalciferol (SM Vitamin D3) 25 MCG (1000 UT) tablet Take 1,000 Units by mouth daily. Active dextromethorphan hydrobromide 2 mg/ml / guaiFENesin 20 mg/ml oral solution (1 source) Uncompetitive S-mhgbfz-X-aspartate Receptor Antagonist, Sigma-1 Agonist Start: 05-22-2019 ROBITUSSIN PEAK COLD DM SYRP 5ml via peg tube every 4 hours as needed for cough DEXTROMETHORPHAN-GUAIFENESIN SYRP [id number] Ana Stevenson LPN magnesium hydroxide 240 mg/ml oral suspension (1 source) Start: 05-22-2019 MILK OF MAGNESIA CONCENTRATE SUSP 30ml via peg tube every 24 hours MAGNESIUM HYDROXIDE SUSP [id number] Ana Stevenson LPN methylPREDNISolone 40 mg injection (2 sources) Corticosteroid Start: 03-20-2021 End: 03-24-2021 methylPREDNISolone sodium (SOLU-MEDROL) injection 40 mg MULTIPLE VITAMINS-MINERALS (1 source) Start: 05-22-2019 MENS MULTIVITAMIN TABS one tablet via peg tube daily MULTIPLE VITAMINS-MINERALS [id number] Ana Stevenson LPN POLYETHYLENE GLYCOL 1450 (1 source) Start: 05-22-2019 POLYETHYLENE GLYCOL 1450 POW D 17 grams via peg tube twice daily POLYETHYLENE GLYCOL 1450 [id number] Ana Stevenson LPN SENNOSIDES-DOCUSATE SODIUM (1 source) Start: 05-22-2019 SENNA PLUS 8.6-50 MG TABS on e tablet via peg tube daily SENNOSIDES-DOCUSATE SODIUM [id number] Ana Stevenson LPN 50 ml sodium chloride 9 mg/ml injection (20 sources) Start: 10-02-2023 End: 10-02-2023 sodium chloride 0.9 % bolus 250 mL Start: 10-02-2023 End: 10-02-2023 sodium chloride 0.9 % infusi on Start: 10-02-2023 End: 10-02-2023 take 5-40 mL intravenously every twelve hours sodium chloride 0.9% (NS) flush 5-40 mL Start: 03-20-2021 take 1 dose intraven ously twice daily 5-40 mL, IntraVENous, EVERY 12 HOURS SCHEDULED (2 times per day), First dose on 03/20/21 at 0900 For Line Patency: Peripheral IV = 5 mL; Midline or Central Line = 10 mL/lumen. If following IV push medication, administer flush at same rate as the IV push. Flush volume is determined by type of infusion therapy being given. For non-viscous solutions use: Peripheral IV = 5 mL Midline or Central Line = 10 mL/lumen For viscous solutions (i.e. blood components, parenteral nutrition, contrast media, or after obtaining blood sample) use: Peripheral IV = 10 mL Midline or Central Line = 20 mL/lumen Start: 03-20-2021 take 25 mL intraveno usly every hour as needed 25 mL, IntraVENous, at 100 mL/hr, PRN, If patient receiving piggyback infusions without ordered maintenance IV fluids or with frequent/long duration piggyback infusions, Starting on 03/20/21 at 0015 Administer at the same rate as the piggyback being infused. Start: 03-20-2021 take 5-40 mL intrave nously once as needed 5-40 mL, IntraVENous, PRN, Line Care, After every IV line use, Starting on 03/20/21 at 0015 For Line Patency: Peripheral IV = 5 mL; Midline or Central Line = 10 mL/lumen. If following IV push medication, administer flush at same rate as the IV push. Flush volume is determined by type of infusion therapy being given. For non-viscous solutions use: Peripheral IV = 5 mL Midline or Central Line = 10 mL/lumen For viscous solutions (i.e. blood components, parenteral nutrition, contrast media, or after obtaining blood sample) use: Peripheral IV = 10 mL Midline or Central Line = 20 mL/lumen Start: 03-19-2021 4 mL, Nebuliza tion, 2 TIMES DAILY, First dose on Mon03/19/21 at 2323 Start: 03-19-2021 End: 03-19-2021 0.9 % sodium chloride bolus Start: 08-22-2018 sodium chlorid e, Inhalant, 3 % nebulizer solution Take 4 mLs by nebulization 4 times daily 0 08/22/2018 Active vancomycin (VANCOCIN) 1,250 mg in dextrose 5 % 250 mL IVPB (1 source) Start: 03-20-2021 End: 03-22-2021 vancomycin (VANCOCIN) 1,250 mg in dextrose 5 % 250 mL IVPB Problems Active Problems Problem Classification Problem Date Documented Da te Episodic/Chronic Acute and unspecified renal failure (1 source) Acute injury of kidney; Translations: [TREVER (acute kidney injury)] 07-23-2018 Alcohol-related disorders (20 sources) Alcohol abuse, uncomplicated; Translations: [Alcohol abuse] Onset: 9 07-08-2018 Chronic Anxiety disorders (2 sources) Anxiety disorder, unspecified; Translations: [Anxiety disorder, unspecified] Onset: 9 Chronic Bacterial infection; unspecified site (2 sources) Klebsiella pneumoniae [K. pneumoniae] as the cause of diseases classified elsewhere; Translations: [Klebsiella pneumoniae as the cause of diseases classd elsr] Onset: 9 Episodic Chronic ulcer of skin (20 sources) Pressure ulcer of sacral region, unspecified stage; Translations: [Pressure ulcer of sacral region, stage 2] Onset: 9 08-09-2018 Chronic Complications of surgical procedures or medical care (6 sources) Gastrostomy infection; Translations: [Malfunction of gastrostomy tube] Onset: 9 Episodic Conduction disorders (3 sources) Long QT syndrome; Translations: [Prolonged QT interval] Onset: 9 08-15-2018 Chronic Deficiency and other anemia (2 sources) Anemia, unspecified; Translations: [Anemia, unspecified] Onset: 9 Episodic Diabetes mellitus without complication (2 sources) Hyperglycemia, unspecified; Translations: [Hyperglycemia, unspecified] Onset: 9 Episodic Diseases of white blood cells (1 source) Elevated white blood cell count, unspecified; Translations: [Elevated white blood cell count, unspecified] Onset: 4 Chronic Disorders of lipid metabolism (2 sources) Hyperlipidemia, unspecified; Translations: [Hyperlipidemia, unspecified] Onset: 4 Chronic External cause codes: Unspecified (2 sources) Nosocomial condition; Translations: [Nosocomial condition] Onset: 9 Hepatitis (2 sources) Acute viral hepatitis, unspecified; Translations: [Acute viral hepatitis, unspecified] Onset: 9 Episodic Hyperplasia of prostate (2 sources) Benign prostatic hyperplasia without lower urinary tract symptoms; Translations: [Benign prostatic hyperplasia without lower urinary tract symptoms] Onset: 4 Chronic Mood disorders (2 sources) Major depressive disorder, single episode, unspecified; Translations: [Major depressive disorder, single episode, unspecified] Onset: 9 Nutritional deficiencies (20 sources) Unspecified protein-calorie malnutrition; Translations: [Vitamin D deficiency, unspecified] Onset: 9 07-10-2018 Chronic Occlusion or stenosis of precerebral arteries (19 sources) 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; Translations: [Bilateral vertebral artery occlusion] Onset: 9 07-11-2018 Chronic Occlusion or stenosis of precerebral arteries (1 source) Bilateral vertebral artery occlusion; Translations: [Vertebral artery occlusion, bilateral] Onset: 9 07-11-2018 Other aftercare (2 sources) termite inspector (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; Translations: [MCFP (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] Onset: 9 Episodic Other aftercare (2 sources) Other termite inspector (current) drug therapy; Translations: [Other termite inspector (current) drug therapy] Onset: 4 Episodic Other aftercare (1 source) MCFP (current) use of antibiotics; Translations: [termite inspector (current) use of antibiotics] Onset: 5 Episodic Other aftercare (1 source) termite inspector (current) use of 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; Translations: [termite inspector (current) use of 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] Onset: 5 Episodic Other connective tissue disease (1 source) Fat necrosis; 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 Other connective tissue disease (2 sources) Arthrodesis status; Translations: [Arthrodesis status] Onset: 9 Episodic Other diseases of bladder and urethra (1 source) Neuromuscular dysfunction of bladder, unspecified; Translations: [Neuromuscular dysfunction of bladder, unspecified] Onset: 5 Chronic Other fractures (2 sources) Unspecified displaced fracture of fourth cervical vertebra, subsequent encounter for fracture with routine healing; Translations: [Unsp disp fx of 4th cervcal vert, subs for fx w routn heal] Onset: 9 Episodic Other fractures (2 sources) Unspecified fracture of first thoracic vertebra, subsequent encounter for fracture with routine healing; Translations: [Unsp fx first thor vertebra, subs for fx w routn heal] Onset: 9 Episodic Other fractures (2 sources) Unspecified traumatic displaced spondylolisthesis of third cervical vertebra, subsequent encounter for fracture with routine healing; Translations: [Unsp traum displ spondylolysis of 3rd cervcal vert, 7thD] Onset: 9 Episodic Other fractures (2 sources) Unspecified traumatic nondisplaced spondylolisthesis of third cervical vertebra, initial encounter for closed fracture; Translations: [Unsp traum nondisp spondylolysis of third cervcal vert, init] Onset: 9 Episodic Other fractures (2 sources) Unspecified traumatic nondisplaced spondylolisthesis of fourth cervical vertebra, initial encounter for closed fracture; Translations: [Unsp traum nondisp spondylolysis of 4th cervcal vert, init] Onset: 9 Episodic Other fractures (2 sources) Wedge compression fracture of first thoracic vertebra, initial encounter for closed fracture; Translations: [Wedge compression fracture of first thoracic vertebra, init] Onset: 9 Episodic Other gastrointestinal disorders (2 sources) Other dysphagia; Translations: [Other dysphagia] Onset: 9 Episodic Other injuries and conditions due to external causes (1 source) Central cord syndrome; Translations: [Central cord syndrome] Onset: 9 08-15-2018 Chronic Other injuries and conditions due to external causes (2 sources) Traumatic ischemia of muscle, initial encounter; Translations: [Traumatic ischemia of muscle, initial encounter] Onset: 9 Episodic Other lower respiratory disease (2 sources) Dyspnea; Translations: [Dyspnea, unspecified] 10-02-2023 Episodic Other lower respiratory disease (8 sources) Chronic cough; Translations: [Chronic cough] Onset: 5 06-24-2024 Episodic Other nervous system disorders (1 source) Unspecified lack of coordination; Translations: [Unspecified lack of coordination] Onset: 5 Episodic Other nutritional; endocrine; and metabolic disorders (2 sources) Hypermagnesemia; Translations: [Hypermagnesemia] Onset: 9 Chronic Other nutritional; endocrine; and metabolic disorders (2 sources) Overweight; Translations: [Overweight] Onset: 9 Chronic Other nutritional; endocrine; and metabolic disorders (2 sources) Body mass index (BMI) 26.0-26.9, adult; Translations: [Body mass index (BMI) 26.0-26.9, adult] Onset: 9 Episodic Other nutritional; endocrine; and metabolic disorders (3 sources) Feeding problem; Translations: [Feeding difficulties] 11-22-2023 Episodic Other upper respiratory disease (2 sources) Tracheostomy status; Translations: [Tracheostomy status] Onset: 9 Chronic Residual codes; unclassified (1 source) Restlessness and agitation; Translations: [Restlessness and agitation] Onset: 4 Chronic Residual codes; unclassified (2 sources) Physical restraint status; Translations: [Physical restraint status] Onset: 9 Episodic Residual codes; unclassified (1 source) Altered mental status, unspecified; Translations: [Altered mental status, unspecified] Onset: 5 Episodic Respiratory failure; insufficiency; arrest (adult) (4 sources) Chronic respiratory failure, unspecified whether with hypoxia or hypercapnia; Translations: [Dependence on respirator [ventilator] status] Onset: 9 Chronic Schizophrenia and other psychotic disorders (20 sources) Schizotypal disorder; Translations: [Chronic latent schizophrenia] Onset: 9 08-15-2018 Chronic Screening and history of mental health and substance abuse codes (2 sources) Personal history of nicotine dependence; Translations: [Personal history of nicotine dependence] Onset: 9 Episodic Septicemia (except in labor) (4 sources) Other Gram-negative sepsis; Translations: [Sepsis due to Enterococcus] Onset: 9 Spinal cord injury (18 sources) Central cord syndrome at C3 level of cervical spinal cord, initial encounter; Translations: [Central cord syndrome] Onset: 9 08-15-2018 Chronic Spinal cord injury (2 sources) Central cord syndrome at C3 level of cervical spinal cord, subsequent encounter; Translations: [Central cord syndrome at C3, subs] Onset: 9 Episodic Spondylosis; intervertebral disc disorders; other back problems (2 sources) Ankylosing hyperostosis [Forestier], cervical region; Translations: [Ankylosing hyperostosis [Forestier], cervical region] Onset: 9 Chronic Spondylosis; intervertebral disc disorders; other back problems (2 sources) Spinal stenosis, cervical region; Translations: [Spinal stenosis, cervical region] Onset: 9 Episodic Unclassified (2 sources) Respiratory failure following trauma; Translations: [Respiratory failure after trauma] 08-15-2018 Unclassified (1 source) Feeding difficulties, unspecified; Translations: [Feeding difficulties, unspecified] Onset: 4 Past or Other Problems Problem Classification Problem Date Documented Da te Episodic/Chronic Acute and unspecified renal failure (19 sources) Acute kidney failure, unspecified; Translations: [Acute injury of kidney] Onset: 9 07-23-2018 Episodic Complication of device; implant or graft (7 sources) Infection and inflammatory reaction due to other internal prosthetic devices, implants and grafts, initial encounter; Translations: [Displacement of other gastrointestinal prosthetic devices, implants and grafts, initial encounter] Onset: 9 Episodic Conduction disorders (17 sources) Prolonged QT interval; Translations: [Abnormal electrocardiogram [ECG] [EKG]] Onset: 9 08-15-2018 Episodic E Codes: Fall (5 sources) Fall; Translations: [Unspecified fall, initial encounter] Resolved: 9 08-12-2018 Episodic External cause codes: Fall (4 sources) Unspecified fall, initial encounter; Translations: [Fall] Onset: 9 Resolved: 9 08-12-2018 Fluid and electrolyte disorders (20 sources) Hypokalemia; Translations: [Hypokalemia] Onset: 9 07-21-2018 Episodic Genitourinary symptoms and ill-defined conditions (20 sources) Retention of urine, unspecified; Translations: [Other retention of urine] Onset: 9 07-28-2018 Episodic Intestinal obstruction without hernia (20 sources) Ileus, unspecified; Translations: [Intestinal obstruction co-occurrent and due to decreased peristalsis] Onset: 9 07-23-2018 Episodic Other connective tissue disease (1 source) Trochanteric bursitis; Translations: [Trochanteric bursitis, right hip] Onset: 0 05-22-2019 Episodic Other connective tissue disease (17 sources) Fat necrosis; Translations: [Sclerosing mesenteritis] Onset: 9 08-16-2018 Episodic Other fractures (18 sources) Fracture dislocation of cervical spine; Translations: [Fracture of neck, unspecified, initial encounter] Onset: 9 07-08-2018 Episodic Other fractures (3 sources) Closed fracture of fifth cervical vertebra; Translations: [Unspecified traumatic nondisplaced spondylolisthesis of third cervical vertebra, initial encounter for closed fracture] Onset: 9 07-08-2018 Episodic Other fractures (18 sources) Closed fracture thoracic vertebra, wedge; Translations: [Wedge compression fracture of first thoracic vertebra, initial encounter for closed fracture] Onset: 9 07-08-2018 Episodic Other fractures (15 sources) Closed fracture of third cervical vertebra; Translations: [Unspecified traumatic nondisplaced spondylolisthesis of third cervical vertebra, initial encounter for closed fracture] Onset: 9 07-08-2018 Episodic Other gastrointestinal disorders (4 sources) Oropharyngeal dysphagia; Translations: [Dysphagia, oropharyngeal phase] Onset: 4 11-22-2023 Episodic Other gastrointestinal disorders (1 source) Dysphagia, oropharyngeal phase; Translations: [Dysphagia, oropharyngeal phase] Onset: 4 Episodic Other injuries and conditions due to external causes (1 source) Contusion; Translations: [Other injury of unspecified body region, initial encounter] Onset: 0 05-22-2019 Episodic Other injuries and conditions due to external causes (1 source) Central cord syndrome Onset: 9 08-15-2018 Episodic Other lower respiratory disease (15 sources) Hypoxia; Translations: [Hypoxemia] Onset: 1 Episodic Other lower respiratory disease (2 sources) Dyspnea, unspecified; Translations: [Dyspnea, unspecified] Onset: 4 Episodic Pleurisy; pneumothorax; pulmonary collapse (20 sources) Pleural effusion, not elsewhere classified; Translations: [Atelectasis] Onset: 9 07-26-2018 Episodic Pneumonia (except that caused by tuberculosis or sexually transmitted disease) (20 sources) Pneumonia, unspecified organism; Translations: [Hospital acquired pneumonia] Onset: 9 07-26-2018 Episodic Respiratory failure; insufficiency; arrest (adult) (20 sources) Acute respiratory failure with hypoxia; Translations: [Acute respiratory failure] Onset: 9 07-26-2018 Episodic Skin and subcutaneous tissue infections (20 sources) Cutaneous abscess of abdominal wall; Translations: [Cellulitis of abdominal wall] Onset: 9 08-15-2018 Episodic Superficial injury; contusion (3 sources) Contusion of other part of head, initial encounter; Translations: [Contusion of hip] Onset: 9 Episodic Unclassified (1 source) Problem Unclassified (1 source) Feeding difficulties, unspecified; Translations: [Feeding difficulties, unspecified] Onset: 4 Urinary tract infections (1 source) Urinary tract infection, site not specified; Translations: [Urinary tract infection, site not specified] Onset: 4 Episodic Viral infection (15 sources) Respiratory syncytial virus infection; Translations: [Respiratory syncytial virus as the cause of diseases classified elsewhere] Onset: 1 Episodic Results Test Name Value Interpretation Reference Range Facility CBC W/Diff, Automatedon 06-0 Absolute Lymph 3.13 X10 3/uL Normal 0.83-4.51 [facility] Comment on above: Order Comment: 109-1 Performed By: #### L 100.0100 ####[facility] [address] [place], [address] Absolute Neut 5.6 X10 3/uL Normal 2.0-7.7 [facility] Comment on above: Order Comment: 109-1 Performed By: #### L 100.0100 ####[facility] [address] [place], [address] Basophils/100 WBC (Bld) 0.6 % Normal 0-1 [facility] Comment on above: Order Comment: 109-1 Performed By: #### L 100.0100 ####[facility] [address] [place], [address] Eosinophils/100 WBC (Bld) 0.7 % Normal 0-5 [facility] Comment on above: Order Comment: 109-1 Performed By: #### L 100.0100 ####[facility] [address] [place], [address] Erythrocyte distribution width (RBC) [Ratio] 13.0 % Normal 11.6-14.6 [facility] Comment on above: Order Comment: 109-1 Performed By: #### L 100.0100 ####[facility] [address] [place], [address] Hematocrit (Bld) [Volume fraction] 46.9 % Normal 40-54 [facility] Comment on above: Order Comment: 109-1 Performed By: #### L 100.0100 ####[facility] [address] [place], [address] Hemoglobin (Bld) [Mass/Vol] 15.3 g/dL Normal 13.0-16.5 [facility] Comment on above: Order Comment: 109-1 Performed By: #### L 100.0100 ####[facility] [address] [place], [address] IG% 0.300 Normal 0.0-0.9 [facility] Comment on above: Order Comment: 109-1 Result Comment: IG% - Immature Granulocytes (promyelocytes, myelocytes andmetamyelocytes) > 1% indicates that a LEFT SHIFT is Present. Performed By: #### L 100.0100 ####[facility] [address] [place], [address] Lymphocytes/100 WBC (Bld) 31.7 % Normal 19-41 [facility] Comment on above: Order Comment: 109-1 Performed By: #### L 100.0100 ####[facility] [address] [place], [address] MCH (RBC) [Entitic mass] 29.7 pg Normal 27.0-32.0 [facility] Comment on above: Order Comment: 109-1 Performed By: #### L 100.0100 ####[facility] [address] [place], [address] MCHC (RBC) [Mass/Vol] 32.6 g/dL Normal 32-36 [facility] Comment on above: Order Comment: 109-1 Performed By: #### L 100.0100 ####[facility] [address] [place], [address] MCV (RBC) [Entitic vol] 91.1 fL Normal 80-94 [facility] Comment on above: Order Comment: 109-1 Performed By: #### L 100.0100 ####[facility] [address] [place], [address] Monocytes/100 WBC (Bld) 10.4 % High 0-10 [facility] Comment on above: Order Comment: 109-1 Performed By: #### L 100.0100 ####[facility] [address] [place], [address] Neutrophils/100 WBC (Bld) 56.3 % Normal 47-70 [facility] Comment on above: Order Comment: 109-1 Performed By: #### L 100.0100 ####[facility] [address] [place], [address] Nucleated RBC (Bld) [#/Vol] 0 10*3/uL Normal 0-5 [facility] Comment on above: Order Comment: 109-1 Performed By: #### L 100.0100 ####[facility] [address] [place], [address] Platelet mean volume (Bld) [Entitic vol] 11.7 fL Normal 6.2-12.0 [facility] Comment on above: Order Comment: 109-1 Performed By: #### L 100.0100 ####[facility] [address] [place], [address] Platelets (Bld) [#/Vol] 208 10*3/uL Normal 150-450 [facility] Comment on above: Order Comment: 109-1 Performed By: #### L 100.0100 ####[facility] [address] [place], [address] RBC (Bld) [#/Vol] 5.15 10*6/uL Normal 4.6-6.[address] [facility] Comment on above: Order Comment: 109-1 Performed By: #### L 100.0100 ####[facility] [address] [place], [address] RDW SD 42.7 fl Normal 35.1-43.9 [facility] Comment on above: Order Comment: 109-1 Performed By: #### L 100.0100 ####[facility] [address] [place], [address] WBC (Bld) [#/Vol] 9.9 10*3/uL Normal 4.4-11.0 [facility] Comment on above: Order Comment: 109-1 Performed By: #### L 100.0100 ####[facility] [address] [place], [address] Absolute lymphocyte countOrd ered By: Renard Burgos on 09-24-2024 Lymphocytes Auto (Unsp spec) [#/Vol] 1.97 10*3/uL 0.83-4.51 [facility] Absolute neutrophil countOrd ered By: Renard Burgos on 09-24-2024 Neutrophils (Bld) [#/Vol] 6.8 10*3/uL 2.0-7.7 [facility] Automated blood erythrocyte countOrdered By: Renard Burgos on 09-24-2024 RBC (Bld) [#/Vol] 4.48 10*6/uL Low 4.6-6.[address] [facility] Comment on above: Order Comment: 109 Performed By: #### L 100.0100 ####[facility] [address] [place], [address] Automated blood hematocrit ( percentage)Ordered By: Renard Burgos on 09-24-2024 Hematocrit (Bld) [Volume fraction] 40.4 % Normal 40-54 [facility] Comment on above: Order Comment: 109 Performed By: #### L 100.0100 ####[facility] [address] [place], [address] Automated lymphocyte count a s percentage of total leukocytesOrdered By: Renard Burgos on 09-24-2024 Lymphocytes/100 WBC Auto (Unsp spec) 20.5 % 19-41 [facility] Basophil percentageOrdered B y: Renard Burgos on 09-24-2024 Basophils/100 WBC (Bld) 0.5 % Normal 0-1 [facility] Comment on above: Order Comment: 109 Performed By: #### L 100.0100 ####[facility] [address] [place], [address] CBC W/Diff, Automatedon 08-30 Absolute Lymph 1.97 X10 3/uL Normal 0.83-4.51 [facility] Comment on above: Order Comment: 109 Performed By: #### L 100.0100 ####[facility] [address] [place], [address] Absolute Neut 6.8 X10 3/uL Normal 2.0-7.7 [facility] Comment on above: Order Comment: 109 Performed By: #### L 100.0100 ####[facility] [address] [place], [address] IG% 0.300 Normal 0.0-0.9 [facility] Comment on above: Order Comment: 109 Result Comment: IG% - Immature Granulocytes (promyelocytes, myelocytes andmetamyelocytes) > 1% indicates that a LEFT SHIFT is Present. Performed By: #### L 100.0100 ####[facility] [address] [place], [address] Lymphocytes/100 WBC (Bld) 20.5 % Normal 19-41 [facility] Comment on above: Order Comment: 109 Performed By: #### L 100.0100 ####[facility] [address] [place], [address] Nucleated RBC (Bld) [#/Vol] 0 10*3/uL Normal 0-5 [facility] Comment on above: Order Comment: 109 Performed By: #### L 100.0100 ####[facility] [address] [place], [address] RDW SD 42.9 fl Normal 35.1-43.9 [facility] Comment on above: Order Comment: 109 Performed By: #### L 100.0100 ####[facility] [address] [place], [address] Eosinophil percentageOrdered By: Renard Burgos on 09-24-2024 Eosinophils/100 WBC (Bld) 0.5 % Normal 0-5 [facility] Comment on above: Order Comment: 109 Performed By: #### L 100.0100 ####[facility] [address] [place], [address] Erythrocyte distribution wid th ratioOrdered By: Renard Burgos on 09-24-2024 Erythrocyte distribution width (RBC) [Ratio] 13.1 % Normal 11.6-14.6 [facility] Comment on above: Order Comment: 109 Performed By: #### L 100.0100 ####[facility] [address] [place], [address] Erythrocyte distribution wid th standard deviationOrdered By: Renard Burgos on 09-24-2024 Erythrocyte distribution width (RBC) [Ratio] 42.9 fl 35.1-43.9 [facility] Hemoglobin measurementOrdere d By: Renard Burgos on 09-24-2024 Hemoglobin (Bld) [Mass/Vol] 13.4 g/dL Normal 13.0-16.5 [facility] Comment on above: Order Comment: 109 Performed By: #### L 100.0100 ####[facility] [address] [place], [address] Immature granulocytes/100 WB C Auto (Bld)Ordered By: Renard Burgos on 09-24-2024 Immature granulocytes/100 WBC (Bld) 0.300 % 0.0-0.9 [facility] Comment on above: IG% - Immature Granu locytes (promyelocytes, myelocytes and metamyelocytes) > 1% indicates that a LEFT SHIFT is Present. MCV (mean corpuscular volume ) determinationOrdered By: Renard Burgos on 09-24-2024 MCV (RBC) [Entitic vol] 90.2 fL Normal 80-94 [facility] Comment on above: Order Comment: 109 Performed By: #### L 100.0100 ####[facility] [address] [place], [place], [phone] Mean corpuscular hemoglobin (MCH) determinationOrdered By: Renard Burgos on 09-24-2024 MCH (RBC) [Entitic mass] 29.9 pg Normal 27.0-32.0 [facility] Comment on above: Order Comment: 109 Performed By: #### L 100.0100 ####[facility] [address] [place], [place], [phone] Mean corpuscular hemoglobin concentration (MCHC) determinationOrdered By: Renard Burgos on 09-24-2024 MCHC (RBC) [Mass/Vol] 33.2 g/dL Normal 32-36 [facility] Comment on above: Order Comment: 109 Performed By: #### L 100.0100 ####[facility] [address] [place], [place], [phone] Mean platelet volume determi nationOrdered By: Renard Burgos on 09-24-2024 Platelet mean volume (Bld) [Entitic vol] 11.3 fL Normal 6.2-12.0 [facility] Comment on above: Order Comment: 109 Performed By: #### L 100.0100 ####[facility] [address] [place], [address] Monocyte percentageOrdered B y: Renard Burgos on 09-24-2024 Monocytes/100 WBC (Bld) 7.2 % Normal 0-10 [facility] Comment on above: Order Comment: 109 Performed By: #### L 100.0100 ####[facility] [address] [place], [address] Neutrophil percentageOrdered By: Renard Burgos on 09-24-2024 Neutrophils/100 WBC (Bld) 71.0 % High 47-70 [facility] Comment on above: Order Comment: 109 Performed By: #### L 100.0100 ####[facility] [address] [place], [address] Nucleated red blood cell per centageOrdered By: Renard Burgos on 09-24-2024 Nucleated RBC/100 WBC (Bld) [Ratio] 0 % 0-5 [facility] Platelet countOrdered By: Garrick Bhatt on 09-24-2024 Platelets (Bld) [#/Vol] 187 10*3/uL Normal 150-450 [facility] Comment on above: Order Comment: 109 Performed By: #### L 100.0100 ####[facility] [address] [place], [address] White blood cell (WBC) count Ordered By: Renard Burgos on 09-24-2024 WBC (Bld) [#/Vol] 9.6 10*3/uL Normal 4.4-11.0 [facility] Comment on above: Order Comment: 109 Performed By: #### L 100.0100 ####[facility] [address] [place], [address] Absolute lymphocyte countOrd ered By: Renard Burgos on 09-16-2024 Lymphocytes Auto (Unsp spec) [#/Vol] 2.44 10*3/uL 0.83-4.51 [facility] Absolute neutrophil countOrd ered By: Renard Amezquitahola on 09-16-2024 Neutrophils (Bld) [#/Vol] 5.5 10*3/uL 2.0-7.7 [facility] Automated lymphocyte count a s percentage of total leukocytesOrdered By: Renard Burgos on 09-16-2024 Lymphocytes/100 WBC Auto (Unsp spec) 27.7 % 19-41 [facility] Basophil percentageOrdered B y: Renard Burgos on 09-16-2024 Basophils/100 WBC (Bld) 0.8 % 0-1 [facility] CBC W/Diff, Automatedon 08-29 Absolute Lymph 2.44 X10 3/uL Normal 0.83-4.51 [facility] Comment on above: Order Comment: 109.1 Performed By: #### L 100.0100 ####[facility] [address] [place], [address] Absolute Neut 5.5 X10 3/uL Normal 2.0-7.7 [facility] Comment on above: Order Comment: 109.1 Performed By: #### L 100.0100 ####[facility] [address] [place], [address] Basophils/100 WBC (Bld) 0.8 % Normal 0-1 [facility] Comment on above: Order Comment: 109.1 Performed By: #### L 100.0100 ####[facility] [address] [place], [address] Eosinophils/100 WBC (Bld) 0.7 % Normal 0-5 [facility] Comment on above: Order Comment: 109.1 Performed By: #### L 100.0100 ####[facility] [address] [place], [address] Erythrocyte distribution width (RBC) [Ratio] 13.1 % Normal 11.6-14.6 [facility] Comment on above: Order Comment: 109.1 Performed By: #### L 100.0100 ####[facility] [address] [place], [address] Hematocrit (Bld) [Volume fraction] 46.8 % Normal 40-54 [facility] Comment on above: Order Comment: 109.1 Performed By: #### L 100.0100 ####[facility] [address] [place], [address] Hemoglobin (Bld) [Mass/Vol] 15.4 g/dL Normal 13.0-16.5 [facility] Comment on above: Order Comment: 109.1 Performed By: #### L 100.0100 ####[facility] [address] [place], [address] IG% 0.200 Normal 0.0-0.9 [facility] Comment on above: Order Comment: 109.1 Result Comment: IG% - Immature Granulocytes (promyelocytes, myelocytes andmetamyelocytes) > 1% indicates that a LEFT SHIFT is Present. Performed By: #### L 100.0100 ####[facility] [address] [place], [address] Lymphocytes/100 WBC (Bld) 27.7 % Normal 19-41 [facility] Comment on above: Order Comment: 109.1 Performed By: #### L 100.0100 ####[facility] [address] [place], [address] MCH (RBC) [Entitic mass] 30.1 pg Normal 27.0-32.0 [facility] Comment on above: Order Comment: 109.1 Performed By: #### L 100.0100 ####[facility] [address] [place], [address] MCHC (RBC) [Mass/Vol] 32.9 g/dL Normal 32-36 [facility] Comment on above: Order Comment: 109.1 Performed By: #### L 100.0100 ####[facility] [address] [place], [address] MCV (RBC) [Entitic vol] 91.4 fL Normal 80-94 [facility] Comment on above: Order Comment: 109.1 Performed By: #### L 100.0100 ####[facility] [address] [place], [address] Monocytes/100 WBC (Bld) 8.5 % Normal 0-10 [facility] Comment on above: Order Comment: 109.1 Performed By: #### L 100.0100 ####[facility] [address] [place], [address] Neutrophils/100 WBC (Bld) 62.1 % Normal 47-70 [facility] Comment on above: Order Comment: 109.1 Performed By: #### L 100.0100 ####[facility] [address] [place], [address] Nucleated RBC (Bld) [#/Vol] 0 10*3/uL Normal 0-5 [facility] Comment on above: Order Comment: 109.1 Performed By: #### L 100.0100 ####[facility] [address] [place], [address] Platelet mean volume (Bld) [Entitic vol] 10.6 fL Normal 6.2-12.0 [facility] Comment on above: Order Comment: 109.1 Performed By: #### L 100.0100 ####[facility] [address] [place], [address] Platelets (Bld) [#/Vol] 190 10*3/uL Normal 150-450 [facility] Comment on above: Order Comment: 109.1 Performed By: #### L 100.0100 ####[facility] [address] [place], [address] RBC (Bld) [#/Vol] 5.12 10*6/uL Normal 4.6-6.[address] [facility] Comment on above: Order Comment: 109.1 Performed By: #### L 100.0100 ####[facility] [address] [place], [address] RDW SD 43.3 fl Normal 35.1-43.9 [facility] Comment on above: Order Comment: 109.1 Performed By: #### L 100.0100 ####[facility] [address] [place], [address] WBC (Bld) [#/Vol] 8.8 10*3/uL Normal 4.4-11.0 [facility] Comment on above: Order Comment: 109.1 Performed By: #### L 100.0100 ####[facility] [address] [place], [address] Eosinophil percentageOrdered By: Renard Burgos on 09-16-2024 Eosinophils/100 WBC (Bld) 0.7 % 0-5 [facility] Erythrocyte distribution wid th ratioOrdered By: Renard Burgos on 09-16-2024 Erythrocyte distribution width (RBC) [Ratio] 13.1 % 11.6-14.6 [facility] Erythrocyte distribution wid th standard deviationOrdered By: Renard Burgos on 09-16-2024 Erythrocyte distribution width (RBC) [Ratio] 43.3 fl 35.1-43.9 [facility] Hematocrit Auto (Bld) [Volum e fraction]Ordered By: Renard Burgos on 09-16-2024 Hematocrit (Bld) [Volume fraction] 46.8 % 40-54 [facility] Hemoglobin measurementOrdere d By: Renard Burgos on 09-16-2024 Hemoglobin (Bld) [Mass/Vol] 15.4 g/dL 13.0-16.5 [facility] Immature granulocytes/100 WB C Auto (Bld)Ordered By: Renard Burgos on 09-16-2024 Immature granulocytes/100 WBC (Bld) 0.200 % 0.0-0.9 [facility] Comment on above: IG% - Immature Granu locytes (promyelocytes, myelocytes and metamyelocytes) > 1% indicates that a LEFT SHIFT is Present. MCV (mean corpuscular volume ) determinationOrdered By: Renard Burgos on 09-16-2024 MCV (RBC) [Entitic vol] 91.4 fL 80-94 [facility] Mean corpuscular hemoglobin (MCH) determinationOrdered By: Renard Burgos on 09-16-2024 MCH (RBC) [Entitic mass] 30.1 pg 27.0-32.0 [facility] Mean corpuscular hemoglobin concentration (MCHC) determinationOrdered By: Renard Burgos on 09-16-2024 MCHC (RBC) [Mass/Vol] 32.9 g/dL 32-36 [facility] Mean platelet volume determi nationOrdered By: Renard Burgos on 09-16-2024 Platelet mean volume (Bld) [Entitic vol] 10.6 fL 6.2-12.0 [facility] Monocyte percentageOrdered B y: Renard Burgos on 09-16-2024 Monocytes/100 WBC (Bld) 8.5 % 0-10 [facility] Neutrophil percentageOrdered By: Renard Burgos on 09-16-2024 Neutrophils/100 WBC (Bld) 62.1 % 47-70 [facility] Nucleated red blood cell per centageOrdered By: Renard Burgos on 09-16-2024 Nucleated RBC/100 WBC (Bld) [Ratio] 0 % 0-5 [facility] Platelet countOrdered By: Garrick Bhatt on 09-16-2024 Platelets (Bld) [#/Vol] 190 10*3/uL 150-450 [facility] RBC Auto (Bld) [#/Vol]Ordere d By: Renard Burgos on 09-16-2024 RBC (Bld) [#/Vol] 5.12 10*6/uL 4.6-6.[address] [facility] White blood cell (WBC) count Ordered By: Renard Burgos on 09-16-2024 WBC (Bld) [#/Vol] 8.8 10*3/uL 4.4-11.0 [facility] Anion gap in Serum or Plasma Ordered By: Renard Burgos on 09-11-2024 Anion gap [Moles/Vol] 11 mmol/L 5-15 [facility] Automated blood erythrocyte countOrdered By: Renard Burgos on 09-11-2024 RBC (Bld) [#/Vol] 4.67 10*6/uL Normal 4.6-6.[address] [facility] Comment on above: Order Comment: 109-1 Performed By: #### L 100.0500, L500.2500 ####[facility] [address] [place], [address] Automated blood hematocrit ( percentage)Ordered By: Renard Burgos on 09-11-2024 Hematocrit (Bld) [Volume fraction] 42.7 % Normal 40-54 [facility] Comment on above: Order Comment: 109-1 Performed By: #### L 100.0500, L500.2500 ####[facility] [address] [place], [address] BUN/creatinine ratioOrdered By: Renard Burgos on 09-11-2024 Urea nitrogen/Creatinine [Mass ratio] 23.0 mg/mg High 10-20 [facility] Basic Metabolic Profile (BMP )on 09-11-2024 BUN/CRE 23.0 RATIO High 10-20 [facility] Comment on above: Order Comment: 109-1 Performed By: #### L 100.0500, L500.2500 ####[facility] [address] [place], [address] Calcium [Mass/Vol] 8.7 mg/dL Normal 7.6-11.0 [facility] Comment on above: Order Comment: 109-1 Performed By: #### L 100.0500, L500.2500 ####[facility] [address] [place], [address] Chloride [Moles/Vol] 104 mmol/L Normal 98-108 [facility] Comment on above: Order Comment: 109-1 Performed By: #### L 100.0500, L500.2500 ####[facility] [address] [place], [address] CO2 [Moles/Vol] 25.9 mmol/L Normal 21.0-32.0 [facility] Comment on above: Order Comment: 109-1 Performed By: #### L 100.0500, L500.2500 ####[facility] [address] [place], [address] Creatinine [Mass/Vol] 0.58 mg/dL Low 0.70-1.20 [facility] Comment on above: Order Comment: 109-1 Performed By: #### L 100.0500, L500.2500 ####[facility] [address] [place], [address] GAP 11 Normal 5-15 [facility] Comment on above: Order Comment: 109-1 Performed By: #### L 100.0500, L500.2500 ####[facility] [address] [place], [address] GFR/1.73 sq M.predicted among non-blacks MDRD (S/P/Bld) [Vol rate/Area] 107 mL/min/{1.73_m2} Normal >60 [facility] Comment on above: Order Comment: 109-1 Result Comment: mL/m in/1.73m2 CKD-EPI Creatinine Equation (2020) Performed By: #### L 100.0500, L500.2500 ####[facility] [address] [place], [address] Glucose [Mass/Vol] 113 mg/dL High 70-99 [facility] Comment on above: Order Comment: 109-1 Performed By: #### L 100.0500, L500.2500 ####[facility] [address] [place], [address] Potassium [Moles/Vol] 3.8 mmol/L Normal 3.3-5.1 [facility] Comment on above: Order Comment: 109-1 Performed By: #### L 100.0500, L500.2500 ####[facility] [address] [place], [address] Sodium [Moles/Vol] 141 mmol/L Normal 133-145 [facility] Comment on above: Order Comment: 109-1 Performed By: #### L 100.0500, L500.2500 ####[facility] [address] [place], [address] Urea nitrogen [Mass/Vol] 13 mg/dL Normal 4-19 [facility] Comment on above: Order Comment: 109-1 Performed By: #### L 100.0500, L500.2500 ####[facility] [address] [place], [address] CBC-Complete Blood Cnt No Di ffon 09-11-2024 RDW SD 43.7 fl Normal 35.1-43.9 [facility] Comment on above: Order Comment: 109-1 Performed By: #### L 100.0500, L500.2500 ####[facility] [address] [place], [address] Carbon dioxide, total [Moles /volume] in Central venous bloodOrdered By: Renard Burgos on 09-11-2024 CO2 [Moles/Vol] 25.9 mmol/L 21.0-32.0 [facility] Chloride assayOrdered By: Garrick Bhatt on 09-11-2024 Chloride [Moles/Vol] 104 mmol/L 98-108 [facility] Erythrocyte distribution wid th ratioOrdered By: Renard Burgos on 09-11-2024 Erythrocyte distribution width (RBC) [Ratio] 13.2 % Normal 11.6-14.6 [facility] Comment on above: Order Comment: 109-1 Performed By: #### L 100.0500, L500.2500 ####[facility] [address] [place], [address] Erythrocyte distribution wid th standard deviationOrdered By: Renard Burgos on 09-11-2024 Erythrocyte distribution width (RBC) [Ratio] 43.7 fl 35.1-43.9 [facility] Glomerular filtration rate ( GFR) estimation/1.73 sq m using serum, plasma, or whole bOrdered By: Renard Burgos on 09-11-2024 GFR/1.73 sq M.predicted among non-blacks MDRD (S/P/Bld) [Vol rate/Area] 107 mL/min/{1.73_m2} >60 [facility] Comment on above: mL/min/1.73m2 CKD-EP I Creatinine Equation (2020) Hemoglobin measurementOrdere d By: Renard Burgos on 09-11-2024 Hemoglobin (Bld) [Mass/Vol] 14.0 g/dL Normal 13.0-16.5 [facility] Comment on above: Order Comment: 109-1 Performed By: #### L 100.0500, L500.2500 ####[facility] [address] [facility] [place], [place], [id number] MCV (mean corpuscular volume ) determinationOrdered By: Renard Burgos on 09-11-2024 MCV (RBC) [Entitic vol] 91.4 fL Normal 80-94 [facility] Comment on above: Order Comment: 109-1 Performed By: #### L 100.0500, L500.2500 ####[facility] [address] [place], [address] Mean corpuscular hemoglobin (MCH) determinationOrdered By: Renard Burgos on 09-11-2024 MCH (RBC) [Entitic mass] 30.0 pg Normal 27.0-32.0 [facility] Comment on above: Order Comment: 109-1 Performed By: #### L 100.0500, L500.2500 ####[facility] [address] [place], [address] Mean corpuscular hemoglobin concentration (MCHC) determinationOrdered By: Renard Burgos on 09-11-2024 MCHC (RBC) [Mass/Vol] 32.8 g/dL Normal 32-36 [facility] Comment on above: Order Comment: 109-1 Performed By: #### L 100.0500, L500.2500 ####[facility] [address] [place], [address] Mean platelet volume determi nationOrdered By: Renard Burgos on 09-11-2024 Platelet mean volume (Bld) [Entitic vol] 11.3 fL Normal 6.2-12.0 [facility] Comment on above: Order Comment: 109-1 Performed By: #### L 100.0500, L500.2500 ####[facility] [address] [place], [address] Platelet countOrdered By: Garrick Bhtat on 09-11-2024 Platelets (Bld) [#/Vol] 191 10*3/uL Normal 150-450 [facility] Comment on above: Order Comment: 109-1 Performed By: #### L 100.0500, L500.2500 ####[facility] [address] [place], [address] Potassium measurement (mass/ volume)Ordered By: Renard Burgos on 09-11-2024 Potassium (Unsp spec) [Mass/Vol] 3.8 mmol/L 3.3-5.1 [facility] Serum creatinine measurement (mass/volume)Ordered By: Renard Burgos on 09-11-2024 Creatinine [Mass/Vol] 0.58 mg/dL Low 0.70-1.20 [facility] Serum glucose measurement (m ass/volume)Ordered By: Renard Burgos on 09-11-2024 Glucose [Mass/Vol] 113 mg/dL High 70-99 [facility] Serum or plasma calcium gordy urement (mass/volume)Ordered By: Renard Burgos on 09-11-2024 Calcium [Mass/Vol] 8.7 mg/dL 7.6-11.0 [facility] Serum or plasma urea nitroge n measurement (mass/volume)Ordered By: Renard Burgos on 09-11-2024 Urea nitrogen [Mass/Vol] 13 mg/dL 4-19 [facility] Sodium levelOrdered By: Lamine Burgos on 09-11-2024 Sodium [Moles/Vol] 141 mmol/L 133-145 [facility] White blood cell (WBC) count Ordered By: Renard Burgos on 09-11-2024 WBC (Bld) [#/Vol] 7.6 10*3/uL Normal 4.4-11.0 [facility] Comment on above: Order Comment: 109-1 Performed By: #### L 100.0500, L500.2500 ####[facility] [address] [place], [address] Absolute lymphocyte countOrd ered By: Renard Burgos on 09-09-2024 Lymphocytes Auto (Unsp spec) [#/Vol] 2.24 10*3/uL 0.83-4.51 [facility] Absolute neutrophil countOrd ered By: Renard Burgos on 09-09-2024 Neutrophils (Bld) [#/Vol] 8.7 10*3/uL High 2.0-7.7 [facility] Automated lymphocyte count a s percentage of total leukocytesOrdered By: Renard Burgos on 09-09-2024 Lymphocytes/100 WBC Auto (Unsp spec) 19.1 % 19- [facility] Basophil percentageOrdered B y: Renard Burgos on 09-09-2024 Basophils/100 WBC (Bld) 0.4 % 0-1 [facility] CBC W/Diff, Automatedon 08-29 Absolute Lymph 2.24 X10 3/uL Normal 0.83-4.51 [facility] Comment on above: Order Comment: 109-1 Performed By: #### L 100.0100 ####[facility] [address] [place], [address] Absolute Neut 8.7 X10 3/uL High 2.0-7.7 [facility] Comment on above: Order Comment: 109-1 Performed By: #### L 100.0100 ####[facility] [address] [place], [address] Basophils/100 WBC (Bld) 0.4 % Normal 0-1 [facility] Comment on above: Order Comment: 109-1 Performed By: #### L 100.0100 ####[facility] [address] [place], [address] Eosinophils/100 WBC (Bld) 0.5 % Normal 0-5 [facility] Comment on above: Order Comment: 109-1 Performed By: #### L 100.0100 ####[facility] [address] [place], [address] Erythrocyte distribution width (RBC) [Ratio] 13.0 % Normal 11.6-14.6 [facility] Comment on above: Order Comment: 109-1 Performed By: #### L 100.0100 ####[facility] [address] [place], [address] Hematocrit (Bld) [Volume fraction] 44.7 % Normal 40-54 [facility] Comment on above: Order Comment: 109-1 Performed By: #### L 100.0100 ####[facility] [address] [place], [address] Hemoglobin (Bld) [Mass/Vol] 14.6 g/dL Normal 13.0-16.5 [facility] Comment on above: Order Comment: 109-1 Performed By: #### L 100.0100 ####[facility] [address] [place], [address] IG% 0.300 Normal 0.0-0.9 [facility] Comment on above: Order Comment: 109-1 Result Comment: IG% - Immature Granulocytes (promyelocytes, myelocytes andmetamyelocytes) > 1% indicates that a LEFT SHIFT is Present. Performed By: #### L 100.0100 ####[facility] [address] [place], [address] Lymphocytes/100 WBC (Bld) 19.1 % Normal 19-41 [facility] Comment on above: Order Comment: 109-1 Performed By: #### L 100.0100 ####[facility] [address] [place], [address] MCH (RBC) [Entitic mass] 30.1 pg Normal 27.0-32.0 [facility] Comment on above: Order Comment: 109-1 Performed By: #### L 100.0100 ####[facility] [address] [place], [address] MCHC (RBC) [Mass/Vol] 32.7 g/dL Normal 32-36 [facility] Comment on above: Order Comment: 109-1 Performed By: #### L 100.0100 ####[facility] [address] [place], [address] MCV (RBC) [Entitic vol] 92.2 fL Normal 80-94 [facility] Comment on above: Order Comment: 109-1 Performed By: #### L 100.0100 ####[facility] [address] [place], [address] Monocytes/100 WBC (Bld) 5.1 % Normal 0-10 [facility] Comment on above: Order Comment: 109-1 Performed By: #### L 100.0100 ####[facility] [address] [place], [address] Neutrophils/100 WBC (Bld) 74.6 % High 47-70 [facility] Comment on above: Order Comment: 109-1 Performed By: #### L 100.0100 ####[facility] [address] [place], [address] Nucleated RBC (Bld) [#/Vol] 0 10*3/uL Normal 0-5 [facility] Comment on above: Order Comment: 109-1 Performed By: #### L 100.0100 ####[facility] [address] [place], [address] Platelet mean volume (Bld) [Entitic vol] 11.6 fL Normal 6.2-12.0 [facility] Comment on above: Order Comment: 109-1 Performed By: #### L 100.0100 ####[facility] [address] [place], [address] Platelets (Bld) [#/Vol] 189 10*3/uL Normal 150-450 [facility] Comment on above: Order Comment: 109-1 Performed By: #### L 100.0100 ####[facility] [address] [place], [address] RBC (Bld) [#/Vol] 4.85 10*6/uL Normal 4.6-6.[address] [facility] Comment on above: Order Comment: 109-1 Performed By: #### L 100.0100 ####[facility] [address] [place], [address] RDW SD 43.8 fl Normal 35.1-43.9 [facility] Comment on above: Order Comment: 109-1 Performed By: #### L 100.0100 ####[facility] [address] [place], [address] WBC (Bld) [#/Vol] 11.7 10*3/uL High 4.4-11.[address] [facility] Comment on above: Order Comment: 109-1 Performed By: #### L 100.0100 ####[facility] [address] [place], [address] Eosinophil percentageOrdered By: Renard Burgos on 09-09-2024 Eosinophils/100 WBC (Bld) 0.5 % 0-5 [facility] Erythrocyte distribution wid th ratioOrdered By: Renard Burgos on 09-09-2024 Erythrocyte distribution width (RBC) [Ratio] 13.0 % 11.6-14.6 [facility] Erythrocyte distribution wid th standard deviationOrdered By: Renard Burgos on 09-09-2024 Erythrocyte distribution width (RBC) [Ratio] 43.8 fl 35.1-43.9 [facility] Hematocrit Auto (Bld) [Volum e fraction]Ordered By: Renard Burgos on 09-09-2024 Hematocrit (Bld) [Volume fraction] 44.7 % 40-54 [facility] Hemoglobin measurementOrdere d By: Renard Burgos on 09-09-2024 Hemoglobin (Bld) [Mass/Vol] 14.6 g/dL 13.0-16.5 [facility] Immature granulocytes/100 WB C Auto (Bld)Ordered By: Renard Burgos on 09-09-2024 Immature granulocytes/100 WBC (Bld) 0.300 % 0.0-0.9 [facility] Comment on above: IG% - Immature Granu locytes (promyelocytes, myelocytes and metamyelocytes) > 1% indicates that a LEFT SHIFT is Present. MCV (mean corpuscular volume ) determinationOrdered By: Renard Burgos on 09-09-2024 MCV (RBC) [Entitic vol] 92.2 fL 80-94 [facility] Mean corpuscular hemoglobin (MCH) determinationOrdered By: Renard Burgos on 09-09-2024 MCH (RBC) [Entitic mass] 30.1 pg 27.0-32.0 [facility] Mean corpuscular hemoglobin concentration (MCHC) determinationOrdered By: Renard Burgos on 09-09-2024 MCHC (RBC) [Mass/Vol] 32.7 g/dL 32-36 [facility] Mean platelet volume determi nationOrdered By: Renard Burgos on 09-09-2024 Platelet mean volume (Bld) [Entitic vol] 11.6 fL 6.2-12.0 [facility] Monocyte percentageOrdered B y: Renard Burgos on 09-09-2024 Monocytes/100 WBC (Bld) 5.1 % 0-10 [facility] Neutrophil percentageOrdered By: Renard Burgos on 09-09-2024 Neutrophils/100 WBC (Bld) 74.6 % High 47-70 [facility] Nucleated red blood cell per centageOrdered By: Renard Burgos on 09-09-2024 Nucleated RBC/100 WBC (Bld) [Ratio] 0 % 0-5 [facility] Platelet countOrdered By: Garrick Bhatt on 09-09-2024 Platelets (Bld) [#/Vol] 189 10*3/uL 150-450 [facility] RBC Auto (Bld) [#/Vol]Ordere d By: Renard Burgos on 09-09-2024 RBC (Bld) [#/Vol] 4.85 10*6/uL 4.6-6.[address] [facility] White blood cell (WBC) count Ordered By: Renard Burgos on 09-09-2024 WBC (Bld) [#/Vol] 11.7 10*3/uL High 4.4-11.[address] [facility] Absolute lymphocyte countOrd ered By: Renard Burgos on 09-02-2024 Lymphocytes Auto (Unsp spec) [#/Vol] 2.07 10*3/uL 0.83-4.51 [facility] Absolute neutrophil countOrd ered By: Renard Burgos on 09-02-2024 Neutrophils (Bld) [#/Vol] 5.8 10*3/uL 2.0-7.7 [facility] Automated lymphocyte count a s percentage of total leukocytesOrdered By: Renard Burgos on 09-02-2024 Lymphocytes/100 WBC Auto (Unsp spec) 24.4 % 19-41 [facility] Basophil percentageOrdered B y: Renard Burgos on 09-02-2024 Basophils/100 WBC (Bld) 0.6 % 0-1 [facility] CBC W/Diff, Automatedon Absolute Lymph 2.07 X10 3/uL Normal 0.83-4.51 [facility] Comment on above: Order Comment: 109 Performed By: #### L 100.0100 ####[facility] [address] [facility] [place], [place], [address] Absolute Neut 5.8 X10 3/uL Normal 2.0-7.7 [facility] Comment on above: Order Comment: 109 Performed By: #### L 100.0100 ####[facility] [address] [place], [address] Basophils/100 WBC (Bld) 0.6 % Normal 0-1 [facility] Comment on above: Order Comment: 109 Performed By: #### L 100.0100 ####[facility] [address] [place], [address] Eosinophils/100 WBC (Bld) 0.7 % Normal 0-5 [facility] Comment on above: Order Comment: 109 Performed By: #### L 100.0100 ####[facility] [address] [place], [address] Erythrocyte distribution width (RBC) [Ratio] 12.8 % Normal 11.6-14.6 [facility] Comment on above: Order Comment: 109 Performed By: #### L 100.0100 ####[facility] [address] [place], [address] Hematocrit (Bld) [Volume fraction] 44.5 % Normal 40-54 [facility] Comment on above: Order Comment: 109 Performed By: #### L 100.0100 ####[facility] [address] [place], [address] Hemoglobin (Bld) [Mass/Vol] 14.9 g/dL Normal 13.0-16.5 [facility] Comment on above: Order Comment: 109 Performed By: #### L 100.0100 ####[facility] [address] [place], [address] IG% 0.400 Normal 0.0-0.9 [facility] Comment on above: Order Comment: 109 Result Comment: IG% - Immature Granulocytes (promyelocytes, myelocytes andmetamyelocytes) > 1% indicates that a LEFT SHIFT is Present. Performed By: #### L 100.0100 ####[facility] [address] [place], [address] Lymphocytes/100 WBC (Bld) 24.4 % Normal 19-41 [facility] Comment on above: Order Comment: 109 Performed By: #### L 100.0100 ####[facility] [address] [place], [address] MCH (RBC) [Entitic mass] 29.9 pg Normal 27.0-32.0 [facility] Comment on above: Order Comment: 109 Performed By: #### L 100.0100 ####[facility] [address] [place], [address] MCHC (RBC) [Mass/Vol] 33.5 g/dL Normal 32-36 [facility] Comment on above: Order Comment: 109 Performed By: #### L 100.0100 ####[facility] [address] [place], [address] MCV (RBC) [Entitic vol] 89.4 fL Normal 80-94 [facility] Comment on above: Order Comment: 109 Performed By: #### L 100.0100 ####[facility] [address] [place], [address] Monocytes/100 WBC (Bld) 5.4 % Normal 0-10 [facility] Comment on above: Order Comment: 109 Performed By: #### L 100.0100 ####[facility] [address] [place], [address] Neutrophils/100 WBC (Bld) 68.5 % Normal 47-70 [facility] Comment on above: Order Comment: 109 Performed By: #### L 100.0100 ####[facility] [address] [place], [address] Nucleated RBC (Bld) [#/Vol] 0 10*3/uL Normal 0-5 [facility] Comment on above: Order Comment: 109 Performed By: #### L 100.0100 ####[facility] [address] [place], [address] Platelet mean volume (Bld) [Entitic vol] 10.7 fL Normal 6.2-12.0 [facility] Comment on above: Order Comment: 109 Performed By: #### L 100.0100 ####[facility] [address] [place], [address] Platelets (Bld) [#/Vol] 189 10*3/uL Normal 150-450 [facility] Comment on above: Order Comment: 109 Performed By: #### L 100.0100 ####[facility] [address] [place], [address] RBC (Bld) [#/Vol] 4.98 10*6/uL Normal 4.6-6.[address] [facility] Comment on above: Order Comment: 109 Performed By: #### L 100.0100 ####[facility] [address] [place], [address] RDW SD 41.7 fl Normal 35.1-43.9 [facility] Comment on above: Order Comment: 109 Performed By: #### L 100.0100 ####[facility] [address] [place], [address] WBC (Bld) [#/Vol] 8.5 10*3/uL Normal 4.4-11.0 [facility] Comment on above: Order Comment: 109 Performed By: #### L 100.0100 ####[facility] [address] [place], [address] Eosinophil percentageOrdered By: Renard Burgos on 09-02-2024 Eosinophils/100 WBC (Bld) 0.7 % 0-5 [facility] Erythrocyte distribution wid th ratioOrdered By: Renard Burgos on 09-02-2024 Erythrocyte distribution width (RBC) [Ratio] 12.8 % 11.6-14.6 [facility] Erythrocyte distribution wid th standard deviationOrdered By: Renard Burgos on 09-02-2024 Erythrocyte distribution width (RBC) [Ratio] 41.7 fl 35.1-43.9 [facility] Hematocrit Auto (Bld) [Volum e fraction]Ordered By: Renard Burgos on 09-02-2024 Hematocrit (Bld) [Volume fraction] 44.5 % 40-54 [facility] [facility] Hemoglobin measurementOrdere d By: Renard Burgos on 09-02-2024 Hemoglobin (Bld) [Mass/Vol] 14.9 g/dL 13.0-16.5 [facility] Immature granulocytes/100 WB C Auto (Bld)Ordered By: Renard Burgos on 09-02-2024 Immature granulocytes/100 WBC (Bld) 0.400 % 0.0-0.9 [facility] Comment on above: IG% - Immature Granu locytes (promyelocytes, myelocytes and metamyelocytes) > 1% indicates that a LEFT SHIFT is Present. MCV (mean corpuscular volume ) determinationOrdered By: Renard Burgos on 09-02-2024 MCV (RBC) [Entitic vol] 89.4 fL 80-94 [facility] Mean corpuscular hemoglobin (MCH) determinationOrdered By: Renard Burgos on 09-02-2024 MCH (RBC) [Entitic mass] 29.9 pg 27.0-32.0 [facility] Mean corpuscular hemoglobin concentration (MCHC) determinationOrdered By: Renard Burgos on 09-02-2024 MCHC (RBC) [Mass/Vol] 33.5 g/dL 32-36 [facility] Mean platelet volume determi nationOrdered By: Renard Burgos on 09-02-2024 Platelet mean volume (Bld) [Entitic vol] 10.7 fL 6.2-12.0 [facility] Monocyte percentageOrdered B y: Renard Burgos on 09-02-2024 Monocytes/100 WBC (Bld) 5.4 % 0-10 [facility] Neutrophil percentageOrdered By: Renard Burgos on 09-02-2024 Neutrophils/100 WBC (Bld) 68.5 % 47-70 [facility] Nucleated red blood cell per centageOrdered By: Renard Burgos on 09-02-2024 Nucleated RBC/100 WBC (Bld) [Ratio] 0 % 0-5 [facility] Platelet countOrdered By: Garrick Bhatt on 09-02-2024 Platelets (Bld) [#/Vol] 189 10*3/uL 150-450 [facility] RBC Auto (Bld) [#/Vol]Ordere d By: Renard Burgos on 09-02-2024 RBC (Bld) [#/Vol] 4.98 10*6/uL 4.6-6.[address] [facility] White blood cell (WBC) count Ordered By: Renard Burgos on 09-02-2024 WBC (Bld) [#/Vol] 8.5 10*3/uL 4.4-11.0 [facility] Absolute lymphocyte countOrd ered By: Renard Burgos on 08-26-2024 Lymphocytes Auto (Unsp spec) [#/Vol] 2.17 10*3/uL 0.83-4.51 [facility] Absolute neutrophil countOrd ered By: Renard Burgos on 08-26-2024 Neutrophils (Bld) [#/Vol] 5.7 10*3/uL 2.0-7.7 [facility] Automated lymphocyte count a s percentage of total leukocytesOrdered By: Renard Burgos on 08-26-2024 Lymphocytes/100 WBC Auto (Unsp spec) 25.1 % 19-41 [facility] Basophil percentageOrdered B y: Renard Burgos on 08-26-2024 Basophils/100 WBC (Bld) 0.6 % 0-1 [facility] CBC W/Diff, Automatedon 07-31 Absolute Lymph 2.17 X10 3/uL Normal 0.83-4.51 [facility] Comment on above: Order Comment: 109-1 Performed By: #### L 100.0100 ####[facility] [address] [place], [address] Absolute Neut 5.7 X10 3/uL Normal 2.0-7.7 [facility] Comment on above: Order Comment: 109-1 Performed By: #### L 100.0100 ####[facility] [address] [place], [address] Basophils/100 WBC (Bld) 0.6 % Normal 0-1 [facility] Comment on above: Order Comment: 109-1 Performed By: #### L 100.0100 ####[facility] [address] [place], [address] Eosinophils/100 WBC (Bld) 0.8 % Normal 0-5 [facility] Comment on above: Order Comment: 109-1 Performed By: #### L 100.0100 ####[facility] [address] [place], [address] Erythrocyte distribution width (RBC) [Ratio] 12.7 % Normal 11.6-14.6 [facility] Comment on above: Order Comment: 109-1 Performed By: #### L 100.0100 ####[facility] [address] [place], [address] Hematocrit (Bld) [Volume fraction] 41.8 % Normal 40-54 [facility] Comment on above: Order Comment: 109-1 Performed By: #### L 100.0100 ####[facility] [address] [place], [address] Hemoglobin (Bld) [Mass/Vol] 13.8 g/dL Normal 13.0-16.5 [facility] Comment on above: Order Comment: 109-1 Performed By: #### L 100.0100 ####[facility] [address] [place], [address] IG% 0.200 Normal 0.0-0.9 [facility] Comment on above: Order Comment: 109-1 Result Comment: IG% - Immature Granulocytes (promyelocytes, myelocytes andmetamyelocytes) > 1% indicates that a LEFT SHIFT is Present. Performed By: #### L 100.0100 ####[facility] [address] [place], [address] Lymphocytes/100 WBC (Bld) 25.1 % Normal 19-41 [facility] Comment on above: Order Comment: 109-1 Performed By: #### L 100.0100 ####[facility] [address] [place], [address] MCH (RBC) [Entitic mass] 29.7 pg Normal 27.0-32.0 [facility] Comment on above: Order Comment: 109-1 Performed By: #### L 100.0100 ####[facility] [address] [place], [address] MCHC (RBC) [Mass/Vol] 33.0 g/dL Normal 32-36 [facility] Comment on above: Order Comment: 109-1 Performed By: #### L 100.0100 ####[facility] [address] [place], [address] MCV (RBC) [Entitic vol] 90.1 fL Normal 80-94 [facility] Comment on above: Order Comment: 109-1 Performed By: #### L 100.0100 ####[facility] [address] [place], [address] Monocytes/100 WBC (Bld) 7.4 % Normal 0-10 [facility] Comment on above: Order Comment: 109-1 Performed By: #### L 100.0100 ####[facility] [address] [place], [address] Neutrophils/100 WBC (Bld) 65.9 % Normal 47-70 [facility] Comment on above: Order Comment: 109-1 Performed By: #### L 100.0100 ####[facility] [address] [place], [address] Nucleated RBC (Bld) [#/Vol] 0 10*3/uL Normal 0-5 [facility] Comment on above: Order Comment: 109-1 Performed By: #### L 100.0100 ####[facility] [address] [place], [address] Platelet mean volume (Bld) [Entitic vol] 11.3 fL Normal 6.2-12.0 [facility] Comment on above: Order Comment: 109-1 Performed By: #### L 100.0100 ####[facility] [address] [place], [address] Platelets (Bld) [#/Vol] 196 10*3/uL Normal 150-450 [facility] Comment on above: Order Comment: 109-1 Performed By: #### L 100.0100 ####[facility] [address] [place], [address] RBC (Bld) [#/Vol] 4.64 10*6/uL Normal 4.6-6.[address] [facility] Comment on above: Order Comment: 109-1 Performed By: #### L 100.0100 ####[facility] [address] [place], [address] RDW SD 41.3 fl Normal 35.1-43.9 [facility] Comment on above: Order Comment: 109-1 Performed By: #### L 100.0100 ####[facility] [address] [place], [address] WBC (Bld) [#/Vol] 8.6 10*3/uL Normal 4.4-11.0 [facility] Comment on above: Order Comment: 109-1 Performed By: #### L 100.0100 ####[facility] [address] [place], [address] Eosinophil percentageOrdered By: Renard Burgos on 08-26-2024 Eosinophils/100 WBC (Bld) 0.8 % 0-5 [facility] Erythrocyte distribution wid th ratioOrdered By: Renard Burgos on 08-26-2024 Erythrocyte distribution width (RBC) [Ratio] 12.7 % 11.6-14.6 [facility] Erythrocyte distribution wid th standard deviationOrdered By: Renard Burgos on 08-26-2024 Erythrocyte distribution width (RBC) [Ratio] 41.3 fl 35.1-43.9 [facility] Hematocrit Auto (Bld) [Volum e fraction]Ordered By: Renard Burgos on 08-26-2024 Hematocrit (Bld) [Volume fraction] 41.8 % 40-54 [facility] Hemoglobin measurementOrdere d By: Renard Burgos on 08-26-2024 Hemoglobin (Bld) [Mass/Vol] 13.8 g/dL 13.0-16.5 [facility] Immature granulocytes/100 WB C Auto (Bld)Ordered By: Renard Burgos on 08-26-2024 Immature granulocytes/100 WBC (Bld) 0.200 % 0.0-0.9 [facility] Comment on above: IG% - Immature Granu locytes (promyelocytes, myelocytes and metamyelocytes) > 1% indicates that a LEFT SHIFT is Present. MCV (mean corpuscular volume ) determinationOrdered By: Renard Burgos on 08-26-2024 MCV (RBC) [Entitic vol] 90.1 fL 80-94 [facility] Mean corpuscular hemoglobin (MCH) determinationOrdered By: Renard Burgos on 08-26-2024 MCH (RBC) [Entitic mass] 29.7 pg 27.0-32.0 [facility] Mean corpuscular hemoglobin concentration (MCHC) determinationOrdered By: Rneard Burgos on 08-26-2024 MCHC (RBC) [Mass/Vol] 33.0 g/dL 32-36 [facility] Mean platelet volume determi nationOrdered By: Renard Burgos on 08-26-2024 Platelet mean volume (Bld) [Entitic vol] 11.3 fL 6.2-12.0 [facility] Monocyte percentageOrdered B y: Renard Burgos on 08-26-2024 Monocytes/100 WBC (Bld) 7.4 % 0-10 [facility] Neutrophil percentageOrdered By: Renard Burgos on 08-26-2024 Neutrophils/100 WBC (Bld) 65.9 % 47-70 [facility] Nucleated red blood cell per centageOrdered By: Renard Burgos on 08-26-2024 Nucleated RBC/100 WBC (Bld) [Ratio] 0 % 0-5 [facility] Platelet countOrdered By: Garrick Bhatt on 08-26-2024 Platelets (Bld) [#/Vol] 196 10*3/uL 150-450 [facility] RBC Auto (Bld) [#/Vol]Ordere d By: Renard Burgos on 08-26-2024 RBC (Bld) [#/Vol] 4.64 10*6/uL 4.6-6.[address] [facility] White blood cell (WBC) count Ordered By: Renard Burgos on 08-26-2024 WBC (Bld) [#/Vol] 8.6 10*3/uL 4.4-11.0 [facility] Anion gap in Serum or Plasma Ordered By: Renard Burgos on 08-23-2024 Anion gap [Moles/Vol] 10 mmol/L 5-15 [facility] BUN/creatinine ratioOrdered By: Renard Burgos on 08-23-2024 Urea nitrogen/Creatinine [Mass ratio] 21.4 mg/mg High 10-20 [facility] Bilirubin, totalOrdered By: Renard Burgos on 08-23-2024 Bilirubin [Mass/Vol] 0.35 mg/dL 0.00-1.30 [facility] CBC-Complete Blood Cnt No Di ffon 08-23-2024 Erythrocyte distribution width (RBC) [Ratio] 12.7 % Normal 11.6-14.6 [facility] Comment on above: Order Comment: 109.1 Performed By: #### L 500.4050, L500.4100, L100.0500 ####[facility] [address] [place], [address] Hematocrit (Bld) [Volume fraction] 42.2 % Normal 40-54 [facility] Comment on above: Order Comment: 109.1 Performed By: #### L 500.4050, L500.4100, L100.0500 ####[facility] [address] [place], [address] Hemoglobin (Bld) [Mass/Vol] 14.0 g/dL Normal 13.0-16.5 [facility] Comment on above: Order Comment: 109.1 Performed By: #### L 500.4050, L500.4100, L100.0500 ####[facility] [address] [place], [address] MCH (RBC) [Entitic mass] 30.0 pg Normal 27.0-32.0 [facility] Comment on above: Order Comment: 109.1 Performed By: #### L 500.4050, L500.4100, L100.0500 ####[facility] [address] [place], [address] MCHC (RBC) [Mass/Vol] 33.2 g/dL Normal 32-36 [facility] Comment on above: Order Comment: 109.1 Performed By: #### L 500.4050, L500.4100, L100.0500 ####[facility] [address] [place], [address] MCV (RBC) [Entitic vol] 90.6 fL Normal 80-94 [facility] Comment on above: Order Comment: 109.1 Performed By: #### L 500.4050, L500.4100, L100.0500 ####[facility] [address] [place], [address] Platelet mean volume (Bld) [Entitic vol] 11.3 fL Normal 6.2-12.0 [facility] Comment on above: Order Comment: 109.1 Performed By: #### L 500.4050, L500.4100, L100.0500 ####[facility] [address] [place], [address] Platelets (Bld) [#/Vol] 184 10*3/uL Normal 150-450 [facility] Comment on above: Order Comment: 109.1 Performed By: #### L 500.4050, L500.4100, L100.0500 ####[facility] [address] [place], [place], [address] RBC (Bld) [#/Vol] 4.66 10*6/uL Normal 4.6-6.[address] [facility] Comment on above: Order Comment: 109.1 Performed By: #### L 500.4050, L500.4100, L100.0500 ####[facility] [address] [place], [place], [address] RDW SD 41.8 fl Normal 35.1-43.9 [facility] Comment on above: Order Comment: 109.1 Performed By: #### L 500.4050, L500.4100, L100.0500 ####[facility] [address] [place], [place], [address] WBC (Bld) [#/Vol] 8.6 10*3/uL Normal 4.4-11.0 [facility] Comment on above: Order Comment: 109.1 Performed By: #### L 500.4050, L500.4100, L100.0500 ####[facility] [address] [place], [place], [address] Calculated very low density lipoprotein (VLDL) cholesterol measurementOrdered By: Renard Burgos on 08-23-2024 Calculated very low density lipoprotein (VLDL) cholesterol measurement 40 mg/dL 5-40 [facility] Carbon dioxide, total [Moles /volume] in Central venous bloodOrdered By: Renard Burgos on 08-23-2024 CO2 [Moles/Vol] 24.9 mmol/L 21.0-32.0 [facility] Chloride assayOrdered By: Garrick Bhatt on 08-23-2024 Chloride [Moles/Vol] 106 mmol/L 98-108 [facility] Comprehensive Metabolic Prof ilon 08-23-2024 Albumin [Mass/Vol] 3.4 g/dL Normal 3.4-4.8 [facility] Comment on above: Order Comment: 109.1 Performed By: #### L 500.4050, L500.4100, L100.0500 ####[facility] [address] [place], [address] Albumin/Globulin [Mass ratio] 1.4 {ratio} Normal 0.9-2.4 [facility] Comment on above: Order Comment: 109.1 Performed By: #### L 500.4050, L500.4100, L100.0500 ####[facility] [address] [place], [address] ALK PHOS 101 U/L Normal 40-129 [facility] Comment on above: Order Comment: 109.1 Performed By: #### L 500.4050, L500.4100, L100.0500 ####[facility] [address] [place], [address] ALT [Catalytic activity/Vol] 13 U/L Normal <=46 [facility] Comment on above: Order Comment: 109.1 Performed By: #### L 500.4050, L500.4100, L100.0500 ####[facility] [address] [place], [address] AST [Catalytic activity/Vol] 17 U/L Normal <=37 [facility] Comment on above: Order Comment: 109.1 Performed By: #### L 500.4050, L500.4100, L100.0500 ####[facility] [address] [place], [address] Bilirubin [Mass/Vol] 0.35 mg/dL Normal 0.00-1.30 [facility] Comment on above: Order Comment: 109.1 Performed By: #### L 500.4050, L500.4100, L100.0500 ####[facility] [address] [place], [address] BUN/CRE 21.4 RATIO High 10-20 [facility] Comment on above: Order Comment: 109.1 Performed By: #### L 500.4050, L500.4100, L100.0500 ####[facility] [address] [place], [address] Calcium [Mass/Vol] 8.2 mg/dL Normal 7.6-11.0 [facility] Comment on above: Order Comment: 109.1 Performed By: #### L 500.4050, L500.4100, L100.0500 ####[facility] [address] [place], [address] Chloride [Moles/Vol] 106 mmol/L Normal 98-108 [facility] Comment on above: Order Comment: 109.1 Performed By: #### L 500.4050, L500.4100, L100.0500 ####[facility] [address] [place], [address] CO2 [Moles/Vol] 24.9 mmol/L Normal 21.0-32.0 [facility] Comment on above: Order Comment: 109.1 Performed By: #### L 500.4050, L500.4100, L100.0500 ####[facility] [address] [place], [address] Creatinine [Mass/Vol] 0.63 mg/dL Low 0.70-1.20 [facility] Comment on above: Order Comment: 109.1 Performed By: #### L 500.4050, L500.4100, L100.0500 ####[facility] [address] [place], [address] GAP 10 Normal 5-15 [facility] Comment on above: Order Comment: 109.1 Performed By: #### L 500.4050, L500.4100, L100.0500 ####[facility] [address] [place], [address] GFR/1.73 sq M.predicted among non-blacks MDRD (S/P/Bld) [Vol rate/Area] 104 mL/min/{1.73_m2} Normal >60 [facility] Comment on above: Order Comment: 109.1 Result Comment: mL/m in/1.73m2 CKD-EPI Creatinine Equation (2020) Performed By: #### L 500.4050, L500.4100, L100.0500 ####[facility] [address] [place], [address] Globulin (S) [Mass/Vol] 2.3 g/dL Normal 2.2-4.2 [facility] Comment on above: Order Comment: 109.1 Performed By: #### L 500.4050, L500.4100, L100.0500 ####[facility] [address] [place], [address] Glucose [Mass/Vol] 116 mg/dL High 70-99 [facility] Comment on above: Order Comment: 109.1 Performed By: #### L 500.4050, L500.4100, L100.0500 ####[facility] [address] [place], [address] Potassium [Moles/Vol] 3.8 mmol/L Normal 3.3-5.1 [facility] Comment on above: Order Comment: 109.1 Performed By: #### L 500.4050, L500.4100, L100.0500 ####[facility] [address] [place], [address] Sodium [Moles/Vol] 141 mmol/L Normal 133-145 [facility] Comment on above: Order Comment: 109.1 Performed By: #### L 500.4050, L500.4100, L100.0500 ####[facility] [address] [place], [address] T PROT 5.7 g/dL Low 5.9-8.4 [facility] Comment on above: Order Comment: 109.1 Performed By: #### L 500.4050, L500.4100, L100.0500 ####[facility] [address] [place], [address] Urea nitrogen [Mass/Vol] 14 mg/dL Normal 4-19 [facility] Comment on above: Order Comment: 109.1 Performed By: #### L 500.4050, L500.4100, L100.0500 ####[facility] [address] [place], [address] Erythrocyte distribution wid th ratioOrdered By: Renard Burgos on 08-23-2024 Erythrocyte distribution width (RBC) [Ratio] 12.7 % 11.6-14.6 [facility] Erythrocyte distribution wid th standard deviationOrdered By: Renard Burgos on 08-23-2024 Erythrocyte distribution width (RBC) [Ratio] 41.8 fl 35.1-43.9 [facility] Glomerular filtration rate ( GFR) estimation/1.73 sq m using serum, plasma, or whole bOrdered By: Renard Burgos on 08-23-2024 GFR/1.73 sq M.predicted among non-blacks MDRD (S/P/Bld) [Vol rate/Area] 104 mL/min/{1.73_m2} >60 [facility] Comment on above: mL/min/1.73m2 CKD-EP I Creatinine Equation (2020) Hematocrit Auto (Bld) [Volum e fraction]Ordered By: Renard Burgos on 08-23-2024 Hematocrit (Bld) [Volume fraction] 42.2 % 40-54 [facility] Hemoglobin measurementOrdere d By: Renard Burgos on 08-23-2024 Hemoglobin (Bld) [Mass/Vol] 14.0 g/dL 13.0-16.5 [facility] LDL calc ser/plasOrdered By: Renard Burgos on 08-23-2024 Cholesterol in LDL [Mass/Vol] 62 mg/dL [facility] Comment on above: Ggxgrnpmae=308-623 m g/dL & Higher Veta=685 mg/dL or greater Laboratory - Chemistry and C hemistry - challengeOrdered By: Renard Burgos on 08-23-2024 AST [Catalytic activity/Vol] 17 U/L <38 [facility] Lipid Profileon 08-23-2024 CHOL:HDL 5.32 Normal [facility] Comment on above: Order Comment: 109.1 Performed By: #### L 500.4050, L500.4100, L100.0500 ####[facility] [address] [place], [address] Cholesterol [Mass/Vol] 125 mg/dL Normal <=200 [facility] Comment on above: Order Comment: 109.1 Result Comment: Chol esterol level, Desirable <200 mg/dLBorderline high cholesterol 200-239 mg/dLHigh cholesterol >=240 mg/dLRecommendations of the NCEP Adult Treatment Panel for thefollowing risk-cutoff thresholds for the [place] Americanpulation. Performed By: #### L 500.4050, L500.4100, L100.0500 ####[facility] [address] [place], [address] Cholesterol in HDL [Mass/Vol] 24 mg/dL Low [facility] Comment on above: Order Comment: 109.1 Result Comment: Lucy onal Cholesterol Education Program (NCEP) guidelines:<40 mg/dL: Low HDL-cholesterol (major risk factor for CHD)>= 60 mg/dL: High HDL-cholesterol (negative risk factor forCHD)HDL-cholesterol is affected by a number of factors, e.g.smoking, exercise, hormones, sex and age. Performed By: #### L 500.4050, L500.4100, L100.0500 ####[facility] [address] [place], [address] Cholesterol in LDL [Mass/Vol] 62 mg/dL Normal [facility] Comment on above: Order Comment: 109.1 Result Comment: Bord hihvcu=467-477 mg/dL Higher Ytlx=090 mg/dL or greater Performed By: #### L 500.4050, L500.4100, L100.0500 ####[facility] [address] [place], [address] Cholesterol in VLDL [Mass/Vol] 40 mg/dL Normal 5-40 [facility] Comment on above: Order Comment: 109.1 Performed By: #### L 500.4050, L500.4100, L100.0500 ####[facility] [address] [place], [address] Triglyceride [Mass/Vol] 198 mg/dL Normal [facility] Comment on above: Order Comment: 109.1 Result Comment: The drugs N-Acetylcysteine and Metamizole may falselydepress this assay.Normal range: <150 mg/dLBorderline High: 150-199 mg/dLHigh: 200-499 mg/dLVery High: >500 mg/dL Performed By: #### L 500.4050, L500.4100, L100.0500 ####[facility] [address] [place], [place], [address] MCV (mean corpuscular volume ) determinationOrdered By: Renard Burgos on 08-23-2024 MCV (RBC) [Entitic vol] 90.6 fL 80-94 [facility] Mean corpuscular hemoglobin (MCH) determinationOrdered By: Renard Burgos on 08-23-2024 MCH (RBC) [Entitic mass] 30.0 pg 27.0-32.0 [facility] Mean corpuscular hemoglobin concentration (MCHC) determinationOrdered By: Renard Burgos on 08-23-2024 MCHC (RBC) [Mass/Vol] 33.2 g/dL 32-36 [facility] Mean platelet volume determi nationOrdered By: Renard Burgos on 08-23-2024 Platelet mean volume (Bld) [Entitic vol] 11.3 fL 6.2-12.0 [facility] Platelet countOrdered By: Garrick Bhatt on 08-23-2024 Platelets (Bld) [#/Vol] 184 10*3/uL 150-450 [facility] Potassium measurement (mass/ volume)Ordered By: Renard Burgos on 08-23-2024 Potassium (Unsp spec) [Mass/Vol] 3.8 mmol/L 3.3-5.1 [facility] RBC Auto (Bld) [#/Vol]Ordere d By: Renard Burgos on 08-23-2024 RBC (Bld) [#/Vol] 4.66 10*6/uL 4.6-6.[address] [facility] Screening total cholesterol/ high density lipoprotein (HDL) cholesterol ratioOrdered By: Renard Burgos on 08-23-2024 Cholesterol.total/Cecilia sterol in HDL [Mass ratio] 5.32 {ratio} [facility] Serum creatinine measurement (mass/volume)Ordered By: Renard Burgos on 08-23-2024 Creatinine [Mass/Vol] 0.63 mg/dL Low 0.70-1.20 [facility] Serum globulin measurementOr dered By: Renard Burgos on 08-23-2024 Globulin (S) [Mass/Vol] 2.3 g/dL 2.2-4.2 [facility] Serum glucose measurement (m ass/volume)Ordered By: Renard Burgos on 08-23-2024 Glucose [Mass/Vol] 116 mg/dL High 70-99 [facility] Serum or plasma alanine kay otransferase (ALT) measurementOrdered By: Renard Burgos on 08-23-2024 ALT [Catalytic activity/Vol] 13 U/L <47 [facility] Serum or plasma albumin gordy urement (mass/volume)Ordered By: Renard Burgos on 08-23-2024 Albumin [Mass/Vol] 3.4 g/dL 3.4-4.8 [facility] Serum or plasma albumin/glob ulin mass ratioOrdered By: Renard Burgos on 08-23-2024 Albumin/Globulin [Mass ratio] 1.4 {ratio} 0.9-2.4 [facility] Serum or plasma alkaline trace sphatase measurementOrdered By: Renard Burgos on 08-23-2024 ALP [Catalytic activity/Vol] 101 U/L 40-129 [facility] Serum or plasma calcium gordy urement (mass/volume)Ordered By: Renard Burgos on 08-23-2024 Calcium [Mass/Vol] 8.2 mg/dL 7.6-11.0 [facility] Serum or plasma cholesterol in HDL measurement (mass/volume)Ordered By: Renard Burgos on 08-23-2024 Cholesterol in HDL [Mass/Vol] 24 mg/dL Low >40 [facility] Comment on above: National Cholesterol Education Program (NCEP) guidelines:<40 mg/dL: Low HDL-cholesterol (major risk factor for CHD)>= 60 mg/dL: High HDL-cholesterol (negative risk factor for CHD)HDL-cholesterol is affected by a number of factors, e.g. smoking, exercise, hormones, sex and age. Serum or plasma cholesterol measurement (mass/volume)Ordered By: Renard Burgos on 08-23-2024 Cholesterol [Mass/Vol] 125 mg/dL <201 [facility] Comment on above: Cholesterol level, D esirable <200 mg/dLBorderline high cholesterol 200-239 mg/dLHigh cholesterol >=240 mg/dLRecommendations of the NCEP Adult Treatment Panel for the following risk-cutoff thresholds for the [place] population. Serum or plasma urea nitroge n measurement (mass/volume)Ordered By: Renard Burgos on 08-23-2024 Urea nitrogen [Mass/Vol] 14 mg/dL 4-19 [facility] Sodium levelOrdered By: Lamine Burgos on 08-23-2024 Sodium [Moles/Vol] 141 mmol/L 133-145 [facility] Total proteinOrdered By: Lyubov Burgos on 08-23-2024 Protein [Mass/Vol] 5.7 g/dL Low 5.9-8.4 [facility] Triglycerides measurementOrd ered By: Renard Burgos on 08-23-2024 Triglyceride [Mass/Vol] 198 mg/dL <199 [facility] Comment on above: The drugs N-Acetylcy steine and Metamizole may falsely depress this assay. Normal range: <150 mg/dLBorderline High: 150-199 mg/dLHigh: 200-499 mg/dLVery High: >500 mg/dL White blood cell (WBC) count Ordered By: Renard Burgos on 08-23-2024 WBC (Bld) [#/Vol] 8.6 10*3/uL 4.4-11.0 [facility] Absolute lymphocyte countOrd ered By: Renard Burgos on 08-19-2024 Lymphocytes Auto (Unsp spec) [#/Vol] 1.97 10*3/uL 0.83-4.51 [facility] Absolute neutrophil countOrd ered By: Renard Hensleydiego on 08-19-2024 Neutrophils (Bld) [#/Vol] 5.0 10*3/uL 2.0-7.7 [facility] Automated lymphocyte count a s percentage of total leukocytesOrdered By: Renard Burgos on 08-19-2024 Lymphocytes/100 WBC Auto (Unsp spec) 25.4 % 19-41 [facility] Basophil percentageOrdered B y: Renard Burgos on 08-19-2024 Basophils/100 WBC (Bld) 0.5 % 0-1 [facility] CBC W/Diff, Automatedon 07-31-2024 Absolute Lymph 1.97 X10 3/uL Normal 0.83-4.51 [facility] Comment on above: Order Comment: 109 Performed By: #### L 100.0100 ####[facility] [address] [place], [address] Absolute Neut 5.0 X10 3/uL Normal 2.0-7.7 [facility] Comment on above: Order Comment: 109 Performed By: #### L 100.0100 ####[facility] [address] [place], [address] Basophils/100 WBC (Bld) 0.5 % Normal 0-1 [facility] Comment on above: Order Comment: 109 Performed By: #### L 100.0100 ####[facility] [address] [place], [address] Eosinophils/100 WBC (Bld) 1.0 % Normal 0-5 [facility] Comment on above: Order Comment: 109 Performed By: #### L 100.0100 ####[facility] [address] [place], [address] Erythrocyte distribution width (RBC) [Ratio] 12.7 % Normal 11.6-14.6 [facility] Comment on above: Order Comment: 109 Performed By: #### L 100.0100 ####[facility] [address] [place], [address] Hematocrit (Bld) [Volume fraction] 41.0 % Normal 40-54 [facility] Comment on above: Order Comment: 109 Performed By: #### L 100.0100 ####[facility] [address] [place], [address] Hemoglobin (Bld) [Mass/Vol] 13.6 g/dL Normal 13.0-16.5 [facility] Comment on above: Order Comment: 109 Performed By: #### L 100.0100 ####[facility] [address] [place], [address] IG% 0.400 Normal 0.0-0.9 [facility] Comment on above: Order Comment: 109 Result Comment: IG% - Immature Granulocytes (promyelocytes, myelocytes andmetamyelocytes) > 1% indicates that a LEFT SHIFT is Present. Performed By: #### L 100.0100 ####[facility] [address] [place], [address] Lymphocytes/100 WBC (Bld) 25.4 % Normal 19-41 [facility] Comment on above: Order Comment: 109 Performed By: #### L 100.0100 ####[facility] [address] [place], [address] MCH (RBC) [Entitic mass] 30.2 pg Normal 27.0-32.0 [facility] Comment on above: Order Comment: 109 Performed By: #### L 100.0100 ####[facility] [address] [place], [address] MCHC (RBC) [Mass/Vol] 33.2 g/dL Normal 32-36 [facility] Comment on above: Order Comment: 109 Performed By: #### L 100.0100 ####[facility] [address] [place], [address] MCV (RBC) [Entitic vol] 91.1 fL Normal 80-94 [facility] Comment on above: Order Comment: 109 Performed By: #### L 100.0100 ####[facility] [address] [place], [address] Monocytes/100 WBC (Bld) 8.2 % Normal 0-10 [facility] Comment on above: Order Comment: 109 Performed By: #### L 100.0100 ####[facility] [address] [place], [address] Neutrophils/100 WBC (Bld) 64.5 % Normal 47-70 [facility] Comment on above: Order Comment: 109 Performed By: #### L 100.0100 ####[facility] [address] [place], [address] Nucleated RBC (Bld) [#/Vol] 0 10*3/uL Normal 0-5 [facility] Comment on above: Order Comment: 109 Performed By: #### L 100.0100 ####[facility] [address] [place], [address] Platelet mean volume (Bld) [Entitic vol] 11.1 fL Normal 6.2-12.0 [facility] Comment on above: Order Comment: 109 Performed By: #### L 100.0100 ####[facility] [address] [place], [address] Platelets (Bld) [#/Vol] 207 10*3/uL Normal 150-450 [facility] Comment on above: Order Comment: 109 Performed By: #### L 100.0100 ####[facility] [address] [place], [address] RBC (Bld) [#/Vol] 4.50 10*6/uL Low 4.6-6.[address] [facility] Comment on above: Order Comment: 109 Performed By: #### L 100.0100 ####[facility] [address] [place], [address] RDW SD 42.0 fl Normal 35.1-43.9 [facility] Comment on above: Order Comment: 109 Performed By: #### L 100.0100 ####[facility] [address] [place], [address] WBC (Bld) [#/Vol] 7.8 10*3/uL Normal 4.4-11.0 [facility] Comment on above: Order Comment: 109 Performed By: #### L 100.0100 ####[facility] [address] [place], [address] Eosinophil percentageOrdered By: Renard Burgos on 08-19-2024 Eosinophils/100 WBC (Bld) 1.0 % 0-5 [facility] Erythrocyte distribution wid th ratioOrdered By: Renard Burgos on 08-19-2024 Erythrocyte distribution width (RBC) [Ratio] 12.7 % 11.6-14.6 [facility] Erythrocyte distribution wid th standard deviationOrdered By: Renard Burgos on 08-19-2024 Erythrocyte distribution width (RBC) [Ratio] 42.0 fl 35.1-43.9 [facility] Hematocrit Auto (Bld) [Volum e fraction]Ordered By: Renard Burgos on 08-19-2024 Hematocrit (Bld) [Volume fraction] 41.0 % 40-54 [facility] Hemoglobin measurementOrdere d By: Renard Burgos on 08-19-2024 Hemoglobin (Bld) [Mass/Vol] 13.6 g/dL 13.0-16.5 [facility] Immature granulocytes/100 WB C Auto (Bld)Ordered By: Renard Burgos on 08-19-2024 Immature granulocytes/100 WBC (Bld) 0.400 % 0.0-0.9 [facility] Comment on above: IG% - Immature Granu locytes (promyelocytes, myelocytes and metamyelocytes) > 1% indicates that a LEFT SHIFT is Present. MCV (mean corpuscular volume ) determinationOrdered By: Renard Burgos on 08-19-2024 MCV (RBC) [Entitic vol] 91.1 fL 80-94 [facility] Mean corpuscular hemoglobin (MCH) determinationOrdered By: Renard Burgos on 08-19-2024 MCH (RBC) [Entitic mass] 30.2 pg 27.0-32.0 [facility] Mean corpuscular hemoglobin concentration (MCHC) determinationOrdered By: Renard Burgos on 08-19-2024 MCHC (RBC) [Mass/Vol] 33.2 g/dL 32-36 [facility] Mean platelet volume determi nationOrdered By: Renard Burgos on 08-19-2024 Platelet mean volume (Bld) [Entitic vol] 11.1 fL 6.2-12.0 [facility] Monocyte percentageOrdered B y: Renard Burgos on 08-19-2024 Monocytes/100 WBC (Bld) 8.2 % 0-10 [facility] Neutrophil percentageOrdered By: Renard Burgos on 08-19-2024 Neutrophils/100 WBC (Bld) 64.5 % 47-70 [facility] Nucleated red blood cell per centageOrdered By: Renard Burgos on 08-19-2024 Nucleated RBC/100 WBC (Bld) [Ratio] 0 % 0-5 [facility] Platelet countOrdered By: Garrick Bhatt on 08-19-2024 Platelets (Bld) [#/Vol] 207 10*3/uL 150-450 [facility] RBC Auto (Bld) [#/Vol]Ordere d By: Renard Burgos on 08-19-2024 RBC (Bld) [#/Vol] 4.50 10*6/uL Low 4.6-6.[address] [facility] White blood cell (WBC) count Ordered By: Renard Burgos on 08-19-2024 WBC (Bld) [#/Vol] 7.8 10*3/uL 4.4-11.0 [facility] Absolute lymphocyte countOrd ered By: Renard Burgos on 08-12-2024 Lymphocytes Auto (Unsp spec) [#/Vol] 2.09 10*3/uL 0.83-4.51 [facility] Absolute neutrophil countOrd ered By: Renard Burgos on 08-12-2024 Neutrophils (Bld) [#/Vol] 5.0 10*3/uL 2.0-7.7 [facility] Automated lymphocyte count a s percentage of total leukocytesOrdered By: Renard Burgos on 08-12-2024 Lymphocytes/100 WBC Auto (Unsp spec) 27.0 % 19-41 [facility] Basophil percentageOrdered B y: Renard Burgos on 08-12-2024 Basophils/100 WBC (Bld) 0.5 % 0-1 [facility] CBC W/Diff, Automatedon 07-30-2024 Absolute Lymph 2.09 X10 3/uL Normal 0.83-4.51 [facility] Comment on above: Order Comment: 109.1 Performed By: #### L 100.0100 ####[facility] [address] [place], [address] Absolute Neut 5.0 X10 3/uL Normal 2.0-7.7 [facility] Comment on above: Order Comment: 109.1 Performed By: #### L 100.0100 ####[facility] [address] [place], [address] Basophils/100 WBC (Bld) 0.5 % Normal 0-1 [facility] Comment on above: Order Comment: 109.1 Performed By: #### L 100.0100 ####[facility] [address] [place], [address] Eosinophils/100 WBC (Bld) 0.9 % Normal 0-5 [facility] Comment on above: Order Comment: 109.1 Performed By: #### L 100.0100 ####[facility] [address] [place], [address] Erythrocyte distribution width (RBC) [Ratio] 12.7 % Normal 11.6-14.6 [facility] Comment on above: Order Comment: 109.1 Performed By: #### L 100.0100 ####[facility] [address] [place], [address] Hematocrit (Bld) [Volume fraction] 41.9 % Normal 40-54 [facility] Comment on above: Order Comment: 109.1 Performed By: #### L 100.0100 ####[facility] [address] [place], [address] Hemoglobin (Bld) [Mass/Vol] 14.1 g/dL Normal 13.0-16.5 [facility] Comment on above: Order Comment: 109.1 Performed By: #### L 100.0100 ####[facility] [address] [place], [address] IG% 0.300 Normal 0.0-0.9 [facility] Comment on above: Order Comment: 109.1 Result Comment: IG% - Immature Granulocytes (promyelocytes, myelocytes andmetamyelocytes) > 1% indicates that a LEFT SHIFT is Present. Performed By: #### L 100.0100 ####[facility] [address] [place], [address] Lymphocytes/100 WBC (Bld) 27.0 % Normal 19-41 [facility] Comment on above: Order Comment: 109.1 Performed By: #### L 100.0100 ####[facility] [address] [place], [address] MCH (RBC) [Entitic mass] 30.3 pg Normal 27.0-32.0 [facility] Comment on above: Order Comment: 109.1 Performed By: #### L 100.0100 ####[facility] [address] [place], [address] MCHC (RBC) [Mass/Vol] 33.7 g/dL Normal 32-36 [facility] Comment on above: Order Comment: 109.1 Performed By: #### L 100.0100 ####[facility] [address] [place], [address] MCV (RBC) [Entitic vol] 90.1 fL Normal 80-94 [facility] Comment on above: Order Comment: 109.1 Performed By: #### L 100.0100 ####[facility] [address] [place], [address] Monocytes/100 WBC (Bld) 7.1 % Normal 0-10 [facility] Comment on above: Order Comment: 109.1 Performed By: #### L 100.0100 ####[facility] [address] [place], [address] Neutrophils/100 WBC (Bld) 64.2 % Normal 47-70 [facility] Comment on above: Order Comment: 109.1 Performed By: #### L 100.0100 ####[facility] [address] [place], [address] Nucleated RBC (Bld) [#/Vol] 0 10*3/uL Normal 0-5 [facility] Comment on above: Order Comment: 109.1 Performed By: #### L 100.0100 ####[facility] [address] [place], [address] Platelet mean volume (Bld) [Entitic vol] 11.2 fL Normal 6.2-12.0 [facility] Comment on above: Order Comment: 109.1 Performed By: #### L 100.0100 ####[facility] [address] [place], [address] Platelets (Bld) [#/Vol] 188 10*3/uL Normal 150-450 [facility] Comment on above: Order Comment: 109.1 Performed By: #### L 100.0100 ####[facility] [address] [place], [address] RBC (Bld) [#/Vol] 4.65 10*6/uL Normal 4.6-6.[address] [facility] Comment on above: Order Comment: 109.1 Performed By: #### L 100.0100 ####[facility] [address] [place], [address] RDW SD 41.6 fl Normal 35.1-43.9 [facility] Comment on above: Order Comment: 109.1 Performed By: #### L 100.0100 ####[facility] [address] [place], [address] WBC (Bld) [#/Vol] 7.8 10*3/uL Normal 4.4-11.0 [facility] Comment on above: Order Comment: 109.1 Performed By: #### L 100.0100 ####[facility] [address] [place], [address] Eosinophil percentageOrdered By: Renard Burgos on 08-12-2024 Eosinophils/100 WBC (Bld) 0.9 % 0-5 [facility] Erythrocyte distribution wid th (RBC) [Ratio]Ordered By: Renard Burgos on 08-12-2024 Erythrocyte distribution width (RBC) [Entitic vol] 41.6 fL 35.1-43.9 [facility] Erythrocyte distribution wid th ratioOrdered By: Renard Burgos on 08-12-2024 Erythrocyte distribution width (RBC) [Ratio] 12.7 % 11.6-14.6 [facility] Erythrocyte distribution wid th standard deviationOrdered By: Renard Burgos on 08-12-2024 Erythrocyte distribution width (RBC) [Ratio] 41.6 fl 35.1-43.9 [facility] Hematocrit Auto (Bld) [Volum e fraction]Ordered By: Renard Burgos on 08-12-2024 Hematocrit (Bld) [Volume fraction] 41.9 % 40-54 [facility] Hemoglobin measurementOrdere d By: Renard Burgos on 08-12-2024 Hemoglobin (Bld) [Mass/Vol] 14.1 g/dL 13.0-16.5 [facility] Immature granulocytes/100 WB C Auto (Bld)Ordered By: Renard Burgos on 08-12-2024 Immature granulocytes/100 WBC (Bld) 0.300 % 0.0-0.9 [facility] Comment on above: IG% - Immature Granu locytes (promyelocytes, myelocytes and metamyelocytes) > 1% indicates that a LEFT SHIFT is Present. Lymphocytes Auto (Unsp spec) [#/Vol]Ordered By: Renard Burgos on 08-12-2024 Lymphocytes (Bld) [#/Vol] 2.09 10*3/uL 0.83-4.51 [facility] Lymphocytes/100 WBC Auto (Un sp spec)Ordered By: Renard Burgos on 08-12-2024 Lymphocytes/100 WBC (Bld) 27.0 % 19-41 [facility] MCV (mean corpuscular volume ) determinationOrdered By: Renard Burgos on 08-12-2024 MCV (RBC) [Entitic vol] 90.1 fL 80-94 [facility] Mean corpuscular hemoglobin (MCH) determinationOrdered By: Renard Burgos on 08-12-2024 MCH (RBC) [Entitic mass] 30.3 pg 27.0-32.0 [facility] Mean corpuscular hemoglobin concentration (MCHC) determinationOrdered By: Renard Burgos on 08-12-2024 MCHC (RBC) [Mass/Vol] 33.7 g/dL 32-36 [facility] Mean platelet volume determi nationOrdered By: Renard Burgos on 08-12-2024 Platelet mean volume (Bld) [Entitic vol] 11.2 fL 6.2-12.0 [facility] Monocyte percentageOrdered B y: Renard Burgos on 08-12-2024 Monocytes/100 WBC (Bld) 7.1 % 0-10 [facility] Neutrophil percentageOrdered By: Renard Burgos on 08-12-2024 Neutrophils/100 WBC (Bld) 64.2 % 47-70 [facility] Nucleated red blood cell per centageOrdered By: Renard Burgos on 08-12-2024 Nucleated RBC/100 WBC (Bld) [Ratio] 0 % 0-5 [facility] Platelet countOrdered By: Garrick Bhatt on 08-12-2024 Platelets (Bld) [#/Vol] 188 10*3/uL 150-450 [facility] RBC Auto (Bld) [#/Vol]Ordere d By: Renard Burgos on 08-12-2024 RBC (Bld) [#/Vol] 4.65 10*6/uL 4.6-6.[address] [facility] White blood cell (WBC) count Ordered By: Renard Burgos on 08-12-2024 WBC (Bld) [#/Vol] 7.8 10*3/uL 4.4-11.0 [facility] Absolute lymphocyte countOrd ered By: Renard Burgos on 08-05-2024 Lymphocytes Auto (Unsp spec) [#/Vol] 2.31 10*3/uL 0.83-4.51 [facility] Absolute neutrophil countOrd ered By: Renard Burgos on 08-05-2024 Neutrophils (Bld) [#/Vol] 5.4 10*3/uL 2.0-7.7 [facility] Automated lymphocyte count a s percentage of total leukocytesOrdered By: Renard Burgos on 08-05-2024 Lymphocytes/100 WBC Auto (Unsp spec) 26.9 % 19-41 [facility] Basophil percentageOrdered B y: Renard Burgos on 08-05-2024 Basophils/100 WBC (Bld) 0.6 % 0-1 [facility] CBC W/Diff, Automatedon - Absolute Lymph 2.31 X10 3/uL Normal 0.83-4.51 [facility] Comment on above: Order Comment: 109.1 Performed By: #### L 100.0100 ####[facility] [address] [place], [address] Absolute Neut 5.4 X10 3/uL Normal 2.0-7.7 [facility] Comment on above: Order Comment: 109.1 Performed By: #### L 100.0100 ####[facility] [address] [place], [address] Basophils/100 WBC (Bld) 0.6 % Normal 0-1 [facility] Comment on above: Order Comment: 109.1 Performed By: #### L 100.0100 ####[facility] [address] [place], [address] Eosinophils/100 WBC (Bld) 0.8 % Normal 0-5 [facility] Comment on above: Order Comment: 109.1 Performed By: #### L 100.0100 ####[facility] [address] [place], [address] Erythrocyte distribution width (RBC) [Ratio] 12.7 % Normal 11.6-14.6 [facility] Comment on above: Order Comment: 109.1 Performed By: #### L 100.0100 ####[facility] [address] [place], [address] Hematocrit (Bld) [Volume fraction] 41.6 % Normal 40-54 [facility] Comment on above: Order Comment: 109.1 Performed By: #### L 100.0100 ####[facility] [address] [place], [address] Hemoglobin (Bld) [Mass/Vol] 13.7 g/dL Normal 13.0-16.5 [facility] Comment on above: Order Comment: 109.1 Performed By: #### L 100.0100 ####[facility] [address] [place], [address] IG% 0.300 Normal 0.0-0.9 [facility] Comment on above: Order Comment: 109.1 Result Comment: IG% - Immature Granulocytes (promyelocytes, myelocytes andmetamyelocytes) > 1% indicates that a LEFT SHIFT is Present. Performed By: #### L 100.0100 ####[facility] [address] [place], [address] Lymphocytes/100 WBC (Bld) 26.9 % Normal 19-41 [facility] Comment on above: Order Comment: 109.1 Performed By: #### L 100.0100 ####[facility] [address] [place], [address] MCH (RBC) [Entitic mass] 30.1 pg Normal 27.0-32.0 [facility] Comment on above: Order Comment: 109.1 Performed By: #### L 100.0100 ####[facility] [address] [place], [address] MCHC (RBC) [Mass/Vol] 32.9 g/dL Normal 32-36 [facility] Comment on above: Order Comment: 109.1 Performed By: #### L 100.0100 ####[facility] [address] [place], [address] MCV (RBC) [Entitic vol] 91.4 fL Normal 80-94 [facility] Comment on above: Order Comment: 109.1 Performed By: #### L 100.0100 ####[facility] [address] [place], [address] Monocytes/100 WBC (Bld) 8.3 % Normal 0-10 [facility] Comment on above: Order Comment: 109.1 Performed By: #### L 100.0100 ####[facility] [address] [place], [address] Neutrophils/100 WBC (Bld) 63.1 % Normal 47-70 [facility] Comment on above: Order Comment: 109.1 Performed By: #### L 100.0100 ####[facility] [address] [place], [address] Nucleated RBC (Bld) [#/Vol] 0 10*3/uL Normal 0-5 [facility] Comment on above: Order Comment: 109.1 Performed By: #### L 100.0100 ####[facility] [address] [place], [address] Platelet mean volume (Bld) [Entitic vol] 11.1 fL Normal 6.2-12.0 [facility] Comment on above: Order Comment: 109.1 Performed By: #### L 100.0100 ####[facility] [address] [place], [address] Platelets (Bld) [#/Vol] 199 10*3/uL Normal 150-450 [facility] Comment on above: Order Comment: 109.1 Performed By: #### L 100.0100 ####[facility] [address] [place], [address] RBC (Bld) [#/Vol] 4.55 10*6/uL Low 4.6-6.[address] [facility] Comment on above: Order Comment: 109.1 Performed By: #### L 100.0100 ####[facility] [address] [place], [address] RDW SD 42.5 fl Normal 35.1-43.9 [facility] Comment on above: Order Comment: 109.1 Performed By: #### L 100.0100 ####[facility] [address] [place], [address] WBC (Bld) [#/Vol] 8.6 10*3/uL Normal 4.4-11.0 [facility] Comment on above: Order Comment: 109.1 Performed By: #### L 100.0100 ####[facility] [address] [place], [address] Eosinophil percentageOrdered By: Renard Burgos on 08-05-2024 Eosinophils/100 WBC (Bld) 0.8 % 0-5 [facility] Erythrocyte distribution wid th (RBC) [Ratio]Ordered By: Renard Burgos on 08-05-2024 Erythrocyte distribution width (RBC) [Entitic vol] 42.5 fL 35.1-43.9 [facility] Erythrocyte distribution wid th ratioOrdered By: Renard Burgos on 08-05-2024 Erythrocyte distribution width (RBC) [Ratio] 12.7 % 11.6-14.6 [facility] Erythrocyte distribution wid th standard deviationOrdered By: Renard Burgos on 08-05-2024 Erythrocyte distribution width (RBC) [Ratio] 42.5 fl 35.1-43.9 [facility] Hematocrit Auto (Bld) [Volum e fraction]Ordered By: Renard Burgos on 08-05-2024 Hematocrit (Bld) [Volume fraction] 41.6 % 40-54 [facility] Hemoglobin measurementOrdere d By: Renard Burgos on 08-05-2024 Hemoglobin (Bld) [Mass/Vol] 13.7 g/dL 13.0-16.5 [facility] Immature granulocytes/100 WB C Auto (Bld)Ordered By: Renard Burgos on 08-05-2024 Immature granulocytes/100 WBC (Bld) 0.300 % 0.0-0.9 [facility] Comment on above: IG% - Immature Granu locytes (promyelocytes, myelocytes and metamyelocytes) > 1% indicates that a LEFT SHIFT is Present. Lymphocytes Auto (Unsp spec) [#/Vol]Ordered By: Renard Burgos on 08-05-2024 Lymphocytes (Bld) [#/Vol] 2.31 10*3/uL 0.83-4.51 [facility] Lymphocytes/100 WBC Auto (Un sp spec)Ordered By: Renard Burgos on 08-05-2024 Lymphocytes/100 WBC (Bld) 26.9 % 19-41 [facility] MCV (mean corpuscular volume ) determinationOrdered By: Renard Burgos on 08-05-2024 MCV (RBC) [Entitic vol] 91.4 fL 80-94 [facility] Mean corpuscular hemoglobin (MCH) determinationOrdered By: Renard Burgos on 08-05-2024 MCH (RBC) [Entitic mass] 30.1 pg 27.0-32.0 [facility] Mean corpuscular hemoglobin concentration (MCHC) determinationOrdered By: Renard Burgos on 08-05-2024 MCHC (RBC) [Mass/Vol] 32.9 g/dL 32-36 [facility] Mean platelet volume determi nationOrdered By: Renard Burgos on 08-05-2024 Platelet mean volume (Bld) [Entitic vol] 11.1 fL 6.2-12.0 [facility] Monocyte percentageOrdered B y: Renard Burgos on 08-05-2024 Monocytes/100 WBC (Bld) 8.3 % 0-10 [facility] Neutrophil percentageOrdered By: Renard Burgos on 08-05-2024 Neutrophils/100 WBC (Bld) 63.1 % 47-70 [facility] Nucleated red blood cell per centageOrdered By: Renard Burgos on 08-05-2024 Nucleated RBC/100 WBC (Bld) [Ratio] 0 % 0-5 [facility] Platelet countOrdered By: Garrick Bhatt on 08-05-2024 Platelets (Bld) [#/Vol] 199 10*3/uL 150-450 [facility] RBC Auto (Bld) [#/Vol]Ordere d By: Renard Burgos on 08-05-2024 RBC (Bld) [#/Vol] 4.55 10*6/uL Low 4.6-6.[address] [facility] White blood cell (WBC) count Ordered By: Renard Burgos on 08-05-2024 WBC (Bld) [#/Vol] 8.6 10*3/uL 4.4-11.0 [facility] Absolute lymphocyte countOrd ered By: Renard Burgos on 07-29-2024 Lymphocytes Auto (Unsp spec) [#/Vol] 1.93 10*3/uL 0.83-4.51 [facility] Absolute neutrophil countOrd ered By: Renard Burgos on 07-29-2024 Neutrophils (Bld) [#/Vol] 6.8 10*3/uL 2.0-7.7 [facility] Automated lymphocyte count a s percentage of total leukocytesOrdered By: Renard Burgos on 07-29-2024 Lymphocytes/100 WBC Auto (Unsp spec) 20.2 % 19-41 [facility] Basophil percentageOrdered B y: Renard Burgos on 07-29-2024 Basophils/100 WBC (Bld) 0.5 % 0-1 [facility] CBC W/Diff, Automatedon 07-01 Absolute Lymph 1.93 X10 3/uL Normal 0.83-4.51 [facility] Comment on above: Order Comment: 109-1 Performed By: #### L 100.0100 ####[facility] [address] [place], [address] Absolute Neut 6.8 X10 3/uL Normal 2.0-7.7 [facility] Comment on above: Order Comment: 109-1 Performed By: #### L 100.0100 ####[facility] [address] [place], [address] Basophils/100 WBC (Bld) 0.5 % Normal 0-1 [facility] Comment on above: Order Comment: 109-1 Performed By: #### L 100.0100 ####[facility] [address] [place], [address] Eosinophils/100 WBC (Bld) 0.7 % Normal 0-5 [facility] Comment on above: Order Comment: 109-1 Performed By: #### L 100.0100 ####[facility] [address] [place], [address] Erythrocyte distribution width (RBC) [Ratio] 12.8 % Normal 11.6-14.6 [facility] Comment on above: Order Comment: 109-1 Performed By: #### L 100.0100 ####[facility] [address] [place], [address] Hematocrit (Bld) [Volume fraction] 40.7 % Normal 40-54 [facility] Comment on above: Order Comment: 109-1 Performed By: #### L 100.0100 ####[facility] [address] [place], [address] Hemoglobin (Bld) [Mass/Vol] 13.5 g/dL Normal 13.0-16.5 [facility] Comment on above: Order Comment: 109-1 Performed By: #### L 100.0100 ####[facility] [address] [place], [address] IG% 0.400 Normal 0.0-0.9 [facility] Comment on above: Order Comment: 109-1 Result Comment: IG% - Immature Granulocytes (promyelocytes, myelocytes andmetamyelocytes) > 1% indicates that a LEFT SHIFT is Present. Performed By: #### L 100.0100 ####[facility] [address] [place], [address] Lymphocytes/100 WBC (Bld) 20.2 % Normal 19-41 [facility] Comment on above: Order Comment: 109-1 Performed By: #### L 100.0100 ####[facility] [address] [place], [address] MCH (RBC) [Entitic mass] 29.9 pg Normal 27.0-32.0 [facility] Comment on above: Order Comment: 109-1 Performed By: #### L 100.0100 ####[facility] [address] [place], [address] MCHC (RBC) [Mass/Vol] 33.2 g/dL Normal 32-36 [facility] Comment on above: Order Comment: 109-1 Performed By: #### L 100.0100 ####[facility] [address] [place], [address] MCV (RBC) [Entitic vol] 90.0 fL Normal 80-94 [facility] Comment on above: Order Comment: 109-1 Performed By: #### L 100.0100 ####[facility] [address] [place], [address] Monocytes/100 WBC (Bld) 7.1 % Normal 0-10 [facility] Comment on above: Order Comment: 109-1 Performed By: #### L 100.0100 ####[facility] [address] [place], [address] Neutrophils/100 WBC (Bld) 71.1 % High 47-70 [facility] Comment on above: Order Comment: 109-1 Performed By: #### L 100.0100 ####[facility] [address] [place], [address] Nucleated RBC (Bld) [#/Vol] 0 10*3/uL Normal 0-5 [facility] Comment on above: Order Comment: 109-1 Performed By: #### L 100.0100 ####[facility] [address] [place], [address] Platelet mean volume (Bld) [Entitic vol] 11.2 fL Normal 6.2-12.0 [facility] Comment on above: Order Comment: 109-1 Performed By: #### L 100.0100 ####[facility] [address] [place], [address] Platelets (Bld) [#/Vol] 218 10*3/uL Normal 150-450 [facility] Comment on above: Order Comment: 109-1 Performed By: #### L 100.0100 ####[facility] [address] [place], [address] RBC (Bld) [#/Vol] 4.52 10*6/uL Low 4.6-6.[address] [facility] Comment on above: Order Comment: 109-1 Performed By: #### L 100.0100 ####[facility] [address] [place], [address] RDW SD 41.9 fl Normal 35.1-43.9 [facility] Comment on above: Order Comment: 109-1 Performed By: #### L 100.0100 ####[facility] [address] [place], [address] WBC (Bld) [#/Vol] 9.6 10*3/uL Normal 4.4-11.0 [facility] Comment on above: Order Comment: 109-1 Performed By: #### L 100.0100 ####[facility] [address] [place], [address] Eosinophil percentageOrdered By: Renard Burgos on 07-29-2024 Eosinophils/100 WBC (Bld) 0.7 % 0-5 [facility] Erythrocyte distribution wid th ratioOrdered By: Renard Burgos on 07-29-2024 Erythrocyte distribution width (RBC) [Ratio] 12.8 % 11.6-14.6 [facility] Erythrocyte distribution wid th standard deviationOrdered By: Renard Burgos on 07-29-2024 Erythrocyte distribution width (RBC) [Entitic vol] 41.9 fL 35.1-43.9 [facility] Erythrocyte distribution width (RBC) [Ratio] 41.9 fl 35.1-43.9 [facility] Hematocrit Auto (Bld) [Volum e fraction]Ordered By: Renard Burgos on 07-29-2024 Hematocrit (Bld) [Volume fraction] 40.7 % 40-54 [facility] Hemoglobin measurementOrdere d By: Renard Burgos on 07-29-2024 Hemoglobin (Bld) [Mass/Vol] 13.5 g/dL 13.0-16.5 [facility] Immature granulocytes/100 WB C Auto (Bld)Ordered By: Renard Burgos on 07-29-2024 Immature granulocytes/100 WBC (Bld) 0.400 % 0.0-0.9 [facility] Comment on above: IG% - Immature Granu locytes (promyelocytes, myelocytes and metamyelocytes) > 1% indicates that a LEFT SHIFT is Present. Lymphocytes Auto (Unsp spec) [#/Vol]Ordered By: Renard Burgos on 07-29-2024 Lymphocytes (Bld) [#/Vol] 1.93 10*3/uL 0.83-4.51 [facility] Lymphocytes/100 WBC Auto (Un sp spec)Ordered By: Renard Burgos on 07-29-2024 Lymphocytes/100 WBC (Bld) 20.2 % 19-41 [facility] MCV (mean corpuscular volume ) determinationOrdered By: Renard Burgos on 07-29-2024 MCV (RBC) [Entitic vol] 90.0 fL 80-94 [facility] Mean corpuscular hemoglobin (MCH) determinationOrdered By: Renard Burgos on 07-29-2024 MCH (RBC) [Entitic mass] 29.9 pg 27.0-32.0 [facility] Mean corpuscular hemoglobin concentration (MCHC) determinationOrdered By: Renard Burgos on 07-29-2024 MCHC (RBC) [Mass/Vol] 33.2 g/dL 32-36 [facility] Mean platelet volume determi nationOrdered By: Renard Burgos on 07-29-2024 Platelet mean volume (Bld) [Entitic vol] 11.2 fL 6.2-12.0 [facility] Monocyte percentageOrdered B y: Renard Burgos on 07-29-2024 Monocytes/100 WBC (Bld) 7.1 % 0-10 [facility] Neutrophil percentageOrdered By: Renard Burgos on 07-29-2024 Neutrophils/100 WBC (Bld) 71.1 % High 47-70 [facility] Nucleated red blood cell per centageOrdered By: Renard Burgos on 07-29-2024 Nucleated RBC/100 WBC (Bld) [Ratio] 0 % 0-5 [facility] Platelet countOrdered By: Garrick Bhatt on 07-29-2024 Platelets (Bld) [#/Vol] 218 10*3/uL 150-450 [facility] RBC Auto (Bld) [#/Vol]Ordere d By: Renard Burgos on 07-29-2024 RBC (Bld) [#/Vol] 4.52 10*6/uL Low 4.6-6.[address] [facility] White blood cell (WBC) count Ordered By: Renard Burgos on 07-29-2024 WBC (Bld) [#/Vol] 9.6 10*3/uL 4.4-11.0 [facility] Absolute lymphocyte countOrd ered By: Renard Burgos on 07-22-2024 Lymphocytes Auto (Unsp spec) [#/Vol] 1.90 10*3/uL 0.83-4.51 [facility] Absolute neutrophil countOrd ered By: Renard Burgos on 07-22-2024 Neutrophils (Bld) [#/Vol] 5.2 10*3/uL 2.0-7.7 [facility] Automated lymphocyte count a s percentage of total leukocytesOrdered By: Renard Burgos on 07-22-2024 Lymphocytes/100 WBC Auto (Unsp spec) 23.9 % 19-41 [facility] Basophil percentageOrdered B y: Renard Burgos on 07-22-2024 Basophils/100 WBC (Bld) 0.6 % 0-1 [facility] CBC W/Diff, Automatedon 06-30 Absolute Lymph 1.90 X10 3/uL Normal 0.83-4.51 [facility] Comment on above: Order Comment: 109.1 Performed By: #### L 100.0100 ####[facility] [address] [place], [address] Absolute Neut 5.2 X10 3/uL Normal 2.0-7.7 [facility] Comment on above: Order Comment: 109.1 Performed By: #### L 100.0100 ####[facility] [address] [place], [address] Basophils/100 WBC (Bld) 0.6 % Normal 0-1 [facility] Comment on above: Order Comment: 109.1 Performed By: #### L 100.0100 ####[facility] [address] [place], [address] Eosinophils/100 WBC (Bld) 0.9 % Normal 0-5 [facility] Comment on above: Order Comment: 109.1 Performed By: #### L 100.0100 ####[facility] [address] [place], [address] Erythrocyte distribution width (RBC) [Ratio] 12.9 % Normal 11.6-14.6 [facility] Comment on above: Order Comment: 109.1 Performed By: #### L 100.0100 ####[facility] [address] [place], [address] Hematocrit (Bld) [Volume fraction] 41.4 % Normal 40-54 [facility] Comment on above: Order Comment: 109.1 Performed By: #### L 100.0100 ####[facility] [address] [place], [address] Hemoglobin (Bld) [Mass/Vol] 13.5 g/dL Normal 13.0-16.5 [facility] Comment on above: Order Comment: 109.1 Performed By: #### L 100.0100 ####[facility] [address] [place], [address] IG% 0.300 Normal 0.0-0.9 [facility] Comment on above: Order Comment: 109.1 Result Comment: IG% - Immature Granulocytes (promyelocytes, myelocytes andmetamyelocytes) > 1% indicates that a LEFT SHIFT is Present. Performed By: #### L 100.0100 ####[facility] [address] [place], [address] Lymphocytes/100 WBC (Bld) 23.9 % Normal 19-41 [facility] Comment on above: Order Comment: 109.1 Performed By: #### L 100.0100 ####[facility] [address] [place], [address] MCH (RBC) [Entitic mass] 29.8 pg Normal 27.0-32.0 [facility] Comment on above: Order Comment: 109.1 Performed By: #### L 100.0100 ####[facility] [address] [place], [address] MCHC (RBC) [Mass/Vol] 32.6 g/dL Normal 32-36 [facility] Comment on above: Order Comment: 109.1 Performed By: #### L 100.0100 ####[facility] [address] [place], [address] MCV (RBC) [Entitic vol] 91.4 fL Normal 80-94 [facility] Comment on above: Order Comment: 109.1 Performed By: #### L 100.0100 ####[facility] [address] [place], [address] Monocytes/100 WBC (Bld) 9.4 % Normal 0-10 [facility] Comment on above: Order Comment: 109.1 Performed By: #### L 100.0100 ####[facility] [address] [place], [address] Neutrophils/100 WBC (Bld) 64.9 % Normal 47-70 [facility] Comment on above: Order Comment: 109.1 Performed By: #### L 100.0100 ####[facility] [address] [place], [address] Nucleated RBC (Bld) [#/Vol] 0 10*3/uL Normal 0-5 [facility] Comment on above: Order Comment: 109.1 Performed By: #### L 100.0100 ####[facility] [address] [place], [address] Platelet mean volume (Bld) [Entitic vol] 11.5 fL Normal 6.2-12.0 [facility] Comment on above: Order Comment: 109.1 Performed By: #### L 100.0100 ####[facility] [address] [place], [address] Platelets (Bld) [#/Vol] 202 10*3/uL Normal 150-450 [facility] Comment on above: Order Comment: 109.1 Performed By: #### L 100.0100 ####[facility] [address] [place], [address] RBC (Bld) [#/Vol] 4.53 10*6/uL Low 4.6-6.[address] [facility] Comment on above: Order Comment: 109.1 Performed By: #### L 100.0100 ####[facility] [address] [place], [address] RDW SD 42.7 fl Normal 35.1-43.9 [facility] Comment on above: Order Comment: 109.1 Performed By: #### L 100.0100 ####[facility] [address] [place], [address] WBC (Bld) [#/Vol] 8.0 10*3/uL Normal 4.4-11.0 [facility] Comment on above: Order Comment: 109.1 Performed By: #### L 100.0100 ####[facility] [address] [place], [address] Eosinophil percentageOrdered By: Renard Burgos on 07-22-2024 Eosinophils/100 WBC (Bld) 0.9 % 0-5 [facility] Erythrocyte distribution wid th ratioOrdered By: Renard Burgos on 07-22-2024 Erythrocyte distribution width (RBC) [Ratio] 12.9 % 11.6-14.6 [facility] Erythrocyte distribution wid th standard deviationOrdered By: Renard Burgos on 07-22-2024 Erythrocyte distribution width (RBC) [Entitic vol] 42.7 fL 35.1-43.9 [facility] Erythrocyte distribution width (RBC) [Ratio] 42.7 fl 35.1-43.9 [facility] Hematocrit Auto (Bld) [Volum e fraction]Ordered By: Renard Burgos on 07-22-2024 Hematocrit (Bld) [Volume fraction] 41.4 % 40-54 [facility] Hemoglobin measurementOrdere d By: Renard Burgos on 07-22-2024 Hemoglobin (Bld) [Mass/Vol] 13.5 g/dL 13.0-16.5 [facility] Immature granulocytes/100 WB C Auto (Bld)Ordered By: Renard Burgos on 07-22-2024 Immature granulocytes/100 WBC (Bld) 0.300 % 0.0-0.9 [facility] Comment on above: IG% - Immature Granu locytes (promyelocytes, myelocytes and metamyelocytes) > 1% indicates that a LEFT SHIFT is Present. Lymphocytes Auto (Unsp spec) [#/Vol]Ordered By: Renard Burgos on 07-22-2024 Lymphocytes (Bld) [#/Vol] 1.90 10*3/uL 0.83-4.51 [facility] Lymphocytes/100 WBC Auto (Un sp spec)Ordered By: Renard Burgos on 07-22-2024 Lymphocytes/100 WBC (Bld) 23.9 % 19-41 [facility] MCV (mean corpuscular volume ) determinationOrdered By: Renard Burgos on 07-22-2024 MCV (RBC) [Entitic vol] 91.4 fL 80-94 [facility] Mean corpuscular hemoglobin (MCH) determinationOrdered By: Renard Burgos on 07-22-2024 MCH (RBC) [Entitic mass] 29.8 pg 27.0-32.0 [facility] Mean corpuscular hemoglobin concentration (MCHC) determinationOrdered By: Renard Burgos on 07-22-2024 MCHC (RBC) [Mass/Vol] 32.6 g/dL 32-36 [facility] Mean platelet volume determi nationOrdered By: Renard Burgos on 07-22-2024 Platelet mean volume (Bld) [Entitic vol] 11.5 fL 6.2-12.0 [facility] Monocyte percentageOrdered B y: Renard Burgos on 07-22-2024 Monocytes/100 WBC (Bld) 9.4 % 0-10 [facility] Neutrophil percentageOrdered By: Renard Burgos on 07-22-2024 Neutrophils/100 WBC (Bld) 64.9 % 47-70 [facility] Nucleated red blood cell per centageOrdered By: Renard Burgos on 07-22-2024 Nucleated RBC/100 WBC (Bld) [Ratio] 0 % 0-5 [facility] Platelet countOrdered By: Garrick Bhatt on 07-22-2024 Platelets (Bld) [#/Vol] 202 10*3/uL 150-450 [facility] RBC Auto (Bld) [#/Vol]Ordere d By: Renard Burgos on 07-22-2024 RBC (Bld) [#/Vol] 4.53 10*6/uL Low 4.6-6.[address] [facility] White blood cell (WBC) count Ordered By: Renard Burgos on 07-22-2024 WBC (Bld) [#/Vol] 8.0 10*3/uL 4.4-11.0 [facility] L506.1001on 07-16-2024 Vitamin D 25-OH 21.8 ng/mL Low 30-100 [facility] Comment on above: Order Comment: 109 Result Comment: Edilma min D StatusDeficiency: <20 ng/mL (50nmol/L)Insufficiency: 20-30 ng/mL (50-75 nmol/L)Sufficiency: 30-100 ng/mL (75-250 nmol/L)Toxicity: >100 ng/mL (>250 nmol/L) Performed By: #### L 506.1001 ####[facility] [address] [place], [address] Vitamin D, 25-hydroxyOrdered By: Renard Burgos on 07-16-2024 Vitamin D 25-Hydroxy 21.8 ng/mL Low 30-100 [facility] Comment on above: Vitamin D StatusDefi ciency: <20 ng/mL (50nmol/L)Insufficiency: 20-30 ng/mL (50-75 nmol/L)Sufficiency: 30-100 ng/mL (75-250 nmol/L)Toxicity: >100 ng/mL (>250 nmol/L) Absolute lymphocyte countOrd ered By: Renard Burgos on 07-15-2024 Lymphocytes Auto (Unsp spec) [#/Vol] 2.10 10*3/uL 0.83-4.51 [facility] Absolute neutrophil countOrd ered By: Renard Burgos on 07-15-2024 Neutrophils (Bld) [#/Vol] 6.9 10*3/uL 2.0-7.7 [facility] Automated lymphocyte count a s percentage of total leukocytesOrdered By: Renard Burgos on 07-15-2024 Lymphocytes/100 WBC Auto (Unsp spec) 21.0 % 19-41 [facility] Basophil percentageOrdered B y: Renard Burgos on 07-15-2024 Basophils/100 WBC (Bld) 0.5 % 0-1 [facility] CBC W/Diff, Automatedon 03- Absolute Lymph 2.10 X10 3/uL Normal 0.83-4.51 [facility] Comment on above: Order Comment: 109.1 Performed By: #### L 100.0100 ####[facility] [address] [place], [address] Absolute Neut 6.9 X10 3/uL Normal 2.0-7.7 [facility] Comment on above: Order Comment: 109.1 Performed By: #### L 100.0100 ####[facility] [address] [place], [address] Basophils/100 WBC (Bld) 0.5 % Normal 0-1 [facility] Comment on above: Order Comment: 109.1 Performed By: #### L 100.0100 ####[facility] [address] [place], [address] Eosinophils/100 WBC (Bld) 1.2 % Normal 0-5 [facility] Comment on above: Order Comment: 109.1 Performed By: #### L 100.0100 ####[facility] [address] [place], [address] Erythrocyte distribution width (RBC) [Ratio] 12.9 % Normal 11.6-14.6 [facility] Comment on above: Order Comment: 109.1 Performed By: #### L 100.0100 ####[facility] [address] [place], [address] Hematocrit (Bld) [Volume fraction] 41.0 % Normal 40-54 [facility] Comment on above: Order Comment: 109.1 Performed By: #### L 100.0100 ####[facility] [address] [place], [address] Hemoglobin (Bld) [Mass/Vol] 13.4 g/dL Normal 13.0-16.5 [facility] Comment on above: Order Comment: 109.1 Performed By: #### L 100.0100 ####[facility] [address] [place], [address] IG% 0.300 Normal 0.0-0.9 [facility] Comment on above: Order Comment: 109.1 Result Comment: IG% - Immature Granulocytes (promyelocytes, myelocytes andmetamyelocytes) > 1% indicates that a LEFT SHIFT is Present. Performed By: #### L 100.0100 ####[facility] [address] [place], [address] Lymphocytes/100 WBC (Bld) 21.0 % Normal 19-41 [facility] Comment on above: Order Comment: 109.1 Performed By: #### L 100.0100 ####[facility] [address] [place], [address] MCH (RBC) [Entitic mass] 29.7 pg Normal 27.0-32.0 [facility] Comment on above: Order Comment: 109.1 Performed By: #### L 100.0100 ####[facility] [address] [place], [address] MCHC (RBC) [Mass/Vol] 32.7 g/dL Normal 32-36 [facility] Comment on above: Order Comment: 109.1 Performed By: #### L 100.0100 ####[facility] [address] [place], [address] MCV (RBC) [Entitic vol] 90.9 fL Normal 80-94 [facility] Comment on above: Order Comment: 109.1 Performed By: #### L 100.0100 ####[facility] [address] [place], [address] Monocytes/100 WBC (Bld) 7.6 % Normal 0-10 [facility] Comment on above: Order Comment: 109.1 Performed By: #### L 100.0100 ####[facility] [address] [place], [address] Neutrophils/100 WBC (Bld) 69.4 % Normal 47-70 [facility] Comment on above: Order Comment: 109.1 Performed By: #### L 100.0100 ####[facility] [address] [place], [address] Nucleated RBC (Bld) [#/Vol] 0 10*3/uL Normal 0-5 [facility] Comment on above: Order Comment: 109.1 Performed By: #### L 100.0100 ####[facility] [address] [place], [address] Platelet mean volume (Bld) [Entitic vol] 11.4 fL Normal 6.2-12.0 [facility] Comment on above: Order Comment: 109.1 Performed By: #### L 100.0100 ####[facility] [address] [place], [address] Platelets (Bld) [#/Vol] 206 10*3/uL Normal 150-450 [facility] Comment on above: Order Comment: 109.1 Performed By: #### L 100.0100 ####[facility] [address] [place], [address] RBC (Bld) [#/Vol] 4.51 10*6/uL Low 4.6-6.[address] [facility] Comment on above: Order Comment: 109.1 Performed By: #### L 100.0100 ####[facility] [address] [place], [address] RDW SD 42.3 fl Normal 35.1-43.9 [facility] Comment on above: Order Comment: 109.1 Performed By: #### L 100.0100 ####[facility] [address] [place], [address] WBC (Bld) [#/Vol] 10.0 10*3/uL Normal 4.4-11.[address] [facility] Comment on above: Order Comment: 109.1 Performed By: #### L 100.0100 ####[facility] [address] [place], [address] Eosinophil percentageOrdered By: Renard Burgos on 07-15-2024 Eosinophils/100 WBC (Bld) 1.2 % 0-5 [facility] Erythrocyte distribution wid th ratioOrdered By: Renard Burgos on 07-15-2024 Erythrocyte distribution width (RBC) [Ratio] 12.9 % 11.6-14.6 [facility] Erythrocyte distribution wid th standard deviationOrdered By: Renard Burgos on 07-15-2024 Erythrocyte distribution width (RBC) [Entitic vol] 42.3 fL 35.1-43.9 [facility] Erythrocyte distribution width (RBC) [Ratio] 42.3 fl 35.1-43.9 [facility] Hematocrit Auto (Bld) [Volum e fraction]Ordered By: Renard Burgos on 07-15-2024 Hematocrit (Bld) [Volume fraction] 41.0 % 40-54 [facility] Hemoglobin measurementOrdere d By: Renard Burgos on 07-15-2024 Hemoglobin (Bld) [Mass/Vol] 13.4 g/dL 13.0-16.5 [facility] Immature granulocytes/100 WB C Auto (Bld)Ordered By: Renard Burgos on 07-15-2024 Immature granulocytes/100 WBC (Bld) 0.300 % 0.0-0.9 [facility] Comment on above: IG% - Immature Granu locytes (promyelocytes, myelocytes and metamyelocytes) > 1% indicates that a LEFT SHIFT is Present. Lymphocytes Auto (Unsp spec) [#/Vol]Ordered By: Renard Burgos on 07-15-2024 Lymphocytes (Bld) [#/Vol] 2.10 10*3/uL 0.83-4.51 [facility] Lymphocytes/100 WBC Auto (Un sp spec)Ordered By: Renard Burgos on 07-15-2024 Lymphocytes/100 WBC (Bld) 21.0 % 19-41 [facility] MCV (mean corpuscular volume ) determinationOrdered By: Renard Burgos on 07-15-2024 MCV (RBC) [Entitic vol] 90.9 fL 80-94 [facility] Mean corpuscular hemoglobin (MCH) determinationOrdered By: Renard Burgos on 07-15-2024 MCH (RBC) [Entitic mass] 29.7 pg 27.0-32.0 [facility] Mean corpuscular hemoglobin concentration (MCHC) determinationOrdered By: Renard Burgos on 07-15-2024 MCHC (RBC) [Mass/Vol] 32.7 g/dL 32-36 [facility] Mean platelet volume determi nationOrdered By: Renard Burgos on 07-15-2024 Platelet mean volume (Bld) [Entitic vol] 11.4 fL 6.2-12.0 [facility] Monocyte percentageOrdered B y: Renard Burgos on 07-15-2024 Monocytes/100 WBC (Bld) 7.6 % 0-10 [facility] Neutrophil percentageOrdered By: Renard Burgos on 07-15-2024 Neutrophils/100 WBC (Bld) 69.4 % 47-70 [facility] Nucleated red blood cell per centageOrdered By: Renard Burgos on 07-15-2024 Nucleated RBC/100 WBC (Bld) [Ratio] 0 % 0-5 [facility] Platelet countOrdered By: Garrick Bhatt on 07-15-2024 Platelets (Bld) [#/Vol] 206 10*3/uL 150-450 [facility] RBC Auto (Bld) [#/Vol]Ordere d By: Renard Burgos on 07-15-2024 RBC (Bld) [#/Vol] 4.51 10*6/uL Low 4.6-6.[address] [facility] White blood cell (WBC) count Ordered By: Renard Burgos on 07-15-2024 WBC (Bld) [#/Vol] 10.0 10*3/uL 4.4-11.[address] [facility] Absolute lymphocyte countOrd ered By: Renard Burgos on 07-08-2024 Lymphocytes Auto (Unsp spec) [#/Vol] 2.02 10*3/uL 0.83-4.51 [facility] Absolute neutrophil countOrd ered By: Renard Burgos on 07-08-2024 Neutrophils (Bld) [#/Vol] 7.2 10*3/uL 2.0-7.7 [facility] Automated lymphocyte count a s percentage of total leukocytesOrdered By: Renard Burgos on 07-08-2024 Lymphocytes/100 WBC Auto (Unsp spec) 19.7 % 19-41 [facility] Basophil percentageOrdered B y: Renard Burgos on 07-08-2024 Basophils/100 WBC (Bld) 0.6 % 0-1 [facility] CBC W/Diff, Automatedon 06-29 0-2024 Absolute Lymph 2.02 X10 3/uL Normal 0.83-4.51 [facility] Comment on above: Order Comment: 109-1 Performed By: #### L 100.0100 ####[facility] [address] [place], [address] Absolute Neut 7.2 X10 3/uL Normal 2.0-7.7 [facility] Comment on above: Order Comment: 109-1 Performed By: #### L 100.0100 ####[facility] [address] [place], [address] Basophils/100 WBC (Bld) 0.6 % Normal 0-1 [facility] Comment on above: Order Comment: 109-1 Performed By: #### L 100.0100 ####[facility] [address] [place], [address] Eosinophils/100 WBC (Bld) 1.5 % Normal 0-5 [facility] Comment on above: Order Comment: 109-1 Performed By: #### L 100.0100 ####[facility] [address] [place], [address] Erythrocyte distribution width (RBC) [Ratio] 12.9 % Normal 11.6-14.6 [facility] Comment on above: Order Comment: 109-1 Performed By: #### L 100.0100 ####[facility] [address] [place], [address] Hematocrit (Bld) [Volume fraction] 40.6 % Normal 40-54 [facility] Comment on above: Order Comment: 109-1 Performed By: #### L 100.0100 ####[facility] [address] [place], [address] Hemoglobin (Bld) [Mass/Vol] 13.6 g/dL Normal 13.0-16.5 [facility] Comment on above: Order Comment: 109-1 Performed By: #### L 100.0100 ####[facility] [address] [place], [address] IG% 0.500 Normal 0.0-0.9 [facility] Comment on above: Order Comment: 109-1 Result Comment: IG% - Immature Granulocytes (promyelocytes, myelocytes andmetamyelocytes) > 1% indicates that a LEFT SHIFT is Present. Performed By: #### L 100.0100 ####[facility] [address] [place], [address] Lymphocytes/100 WBC (Bld) 19.7 % Normal 19-41 [facility] Comment on above: Order Comment: 109-1 Performed By: #### L 100.0100 ####[facility] [address] [place], [address] MCH (RBC) [Entitic mass] 30.5 pg Normal 27.0-32.0 [facility] Comment on above: Order Comment: 109-1 Performed By: #### L 100.0100 ####[facility] [address] [place], [address] MCHC (RBC) [Mass/Vol] 33.5 g/dL Normal 32-36 [facility] Comment on above: Order Comment: 109-1 Performed By: #### L 100.0100 ####[facility] [address] [place], [address] MCV (RBC) [Entitic vol] 91.0 fL Normal 80-94 [facility] Comment on above: Order Comment: 109-1 Performed By: #### L 100.0100 ####[facility] [address] [place], [address] Monocytes/100 WBC (Bld) 7.4 % Normal 0-10 [facility] Comment on above: Order Comment: 109-1 Performed By: #### L 100.0100 ####[facility] [address] [place], [address] Neutrophils/100 WBC (Bld) 70.3 % High 47-70 [facility] Comment on above: Order Comment: 109-1 Performed By: #### L 100.0100 ####[facility] [address] [place], [address] Nucleated RBC (Bld) [#/Vol] 0 10*3/uL Normal 0-5 [facility] Comment on above: Order Comment: 109-1 Performed By: #### L 100.0100 ####[facility] [address] [place], [address] Platelet mean volume (Bld) [Entitic vol] 11.1 fL Normal 6.2-12.0 [facility] Comment on above: Order Comment: 109-1 Performed By: #### L 100.0100 ####[facility] [address] [place], [address] Platelets (Bld) [#/Vol] 207 10*3/uL Normal 150-450 [facility] Comment on above: Order Comment: 109-1 Performed By: #### L 100.0100 ####[facility] [address] [place], [address] RBC (Bld) [#/Vol] 4.46 10*6/uL Low 4.6-6.[address] [facility] Comment on above: Order Comment: 109-1 Performed By: #### L 100.0100 ####[facility] [address] [place], [address] RDW SD 42.5 fl Normal 35.1-43.9 [facility] Comment on above: Order Comment: 109-1 Performed By: #### L 100.0100 ####[facility] [address] [place], [address] WBC (Bld) [#/Vol] 10.3 10*3/uL Normal 4.4-11.[address] [facility] Comment on above: Order Comment: 109-1 Performed By: #### L 100.0100 ####[facility] [address] [place], [address] Eosinophil percentageOrdered By: Renard Burgos on 07-08-2024 Eosinophils/100 WBC (Bld) 1.5 % 0-5 [facility] Erythrocyte distribution wid th ratioOrdered By: Renard Burgos on 07-08-2024 Erythrocyte distribution width (RBC) [Ratio] 12.9 % 11.6-14.6 [facility] Erythrocyte distribution wid th standard deviationOrdered By: Renard Burgos on 07-08-2024 Erythrocyte distribution width (RBC) [Entitic vol] 42.5 fL 35.1-43.9 [facility] Erythrocyte distribution width (RBC) [Ratio] 42.5 fl 35.1-43.9 [facility] Hematocrit Auto (Bld) [Volum e fraction]Ordered By: Renard Burgos on 07-08-2024 Hematocrit (Bld) [Volume fraction] 40.6 % 40-54 [facility] Hemoglobin measurementOrdere d By: Renard Burgos on 07-08-2024 Hemoglobin (Bld) [Mass/Vol] 13.6 g/dL 13.0-16.5 [facility] Immature granulocytes/100 WB C Auto (Bld)Ordered By: Renard Burgos on 07-08-2024 Immature granulocytes/100 WBC (Bld) 0.500 % 0.0-0.9 [facility] Comment on above: IG% - Immature Granu locytes (promyelocytes, myelocytes and metamyelocytes) > 1% indicates that a LEFT SHIFT is Present. Lymphocytes Auto (Unsp spec) [#/Vol]Ordered By: Renard Burgos on 07-08-2024 Lymphocytes (Bld) [#/Vol] 2.02 10*3/uL 0.83-4.51 [facility] Lymphocytes/100 WBC Auto (Un sp spec)Ordered By: Renard Burgos on 07-08-2024 Lymphocytes/100 WBC (Bld) 19.7 % 19-41 [facility] MCV (mean corpuscular volume ) determinationOrdered By: Renard Burgos on 07-08-2024 MCV (RBC) [Entitic vol] 91.0 fL 80-94 [facility] Mean corpuscular hemoglobin (MCH) determinationOrdered By: Renard Burgos on 07-08-2024 MCH (RBC) [Entitic mass] 30.5 pg 27.0-32.0 [facility] Mean corpuscular hemoglobin concentration (MCHC) determinationOrdered By: Renard Burgos on 07-08-2024 MCHC (RBC) [Mass/Vol] 33.5 g/dL 32-36 [facility] Mean platelet volume determi nationOrdered By: Renard Burgos on 07-08-2024 Platelet mean volume (Bld) [Entitic vol] 11.1 fL 6.2-12.0 [facility] Monocyte percentageOrdered B y: Renard Burgos on 07-08-2024 Monocytes/100 WBC (Bld) 7.4 % 0-10 [facility] Neutrophil percentageOrdered By: Renard Burgos on 07-08-2024 Neutrophils/100 WBC (Bld) 70.3 % High 47-70 [facility] Nucleated red blood cell per centageOrdered By: Renard Burgos on 07-08-2024 Nucleated RBC/100 WBC (Bld) [Ratio] 0 % 0-5 [facility] Platelet countOrdered By: Garrick Bhatt on 07-08-2024 Platelets (Bld) [#/Vol] 207 10*3/uL 150-450 [facility] RBC Auto (Bld) [#/Vol]Ordere d By: Renard Burgos on 07-08-2024 RBC (Bld) [#/Vol] 4.46 10*6/uL Low 4.6-6.[address] [facility] White blood cell (WBC) count Ordered By: Renard Burgos on 07-08-2024 WBC (Bld) [#/Vol] 10.3 10*3/uL 4.4-11.[address] [facility] Absolute lymphocyte countOrd ered By: Renard Burgos on 07-01-2024 Lymphocytes Auto (Unsp spec) [#/Vol] 2.03 10*3/uL 0.83-4.51 [facility] Absolute neutrophil countOrd ered By: Renard Burgos on 07-01-2024 Neutrophils (Bld) [#/Vol] 7.0 10*3/uL 2.0-7.7 [facility] Automated lymphocyte count a s percentage of total leukocytesOrdered By: Renard Burgos on 07-01-2024 Lymphocytes/100 WBC Auto (Unsp spec) 20.3 % 19-41 [facility] Basophil percentageOrdered B y: Renard Burgos on 07-01-2024 Basophils/100 WBC (Bld) 0.6 % 0-1 [facility] CBC W/Diff, Automatedon Absolute Lymph 2.03 X10 3/uL Normal 0.83-4.51 [facility] Comment on above: Order Comment: 109 Performed By: #### L 100.0100 ####[facility] [address] [place], [address] Absolute Neut 7.0 X10 3/uL Normal 2.0-7.7 [facility] Comment on above: Order Comment: 109 Performed By: #### L 100.0100 ####[facility] [address] [place], [address] Basophils/100 WBC (Bld) 0.6 % Normal 0-1 [facility] Comment on above: Order Comment: 109 Performed By: #### L 100.0100 ####[facility] [address] [place], [address] Eosinophils/100 WBC (Bld) 1.3 % Normal 0-5 [facility] Comment on above: Order Comment: 109 Performed By: #### L 100.0100 ####[facility] [address] [place], [address] Erythrocyte distribution width (RBC) [Ratio] 13.1 % Normal 11.6-14.6 [facility] Comment on above: Order Comment: 109 Performed By: #### L 100.0100 ####[facility] [address] [place], [address] Hematocrit (Bld) [Volume fraction] 41.7 % Normal 40-54 [facility] Comment on above: Order Comment: 109 Performed By: #### L 100.0100 ####[facility] [address] [place], [address] Hemoglobin (Bld) [Mass/Vol] 13.6 g/dL Normal 13.0-16.5 [facility] Comment on above: Order Comment: 109 Performed By: #### L 100.0100 ####[facility] [address] [place], [address] IG% 0.500 Normal 0.0-0.9 [facility] Comment on above: Order Comment: 109 Result Comment: IG% - Immature Granulocytes (promyelocytes, myelocytes andmetamyelocytes) > 1% indicates that a LEFT SHIFT is Present. Performed By: #### L 100.0100 ####[facility] [address] [place], [address] Lymphocytes/100 WBC (Bld) 20.3 % Normal 19-41 [facility] Comment on above: Order Comment: 109 Performed By: #### L 100.0100 ####[facility] [address] [place], [address] MCH (RBC) [Entitic mass] 29.6 pg Normal 27.0-32.0 [facility] Comment on above: Order Comment: 109 Performed By: #### L 100.0100 ####[facility] [address] [place], [address] MCHC (RBC) [Mass/Vol] 32.6 g/dL Normal 32-36 [facility] Comment on above: Order Comment: 109 Performed By: #### L 100.0100 ####[facility] [address] [place], [address] MCV (RBC) [Entitic vol] 90.8 fL Normal 80-94 [facility] Comment on above: Order Comment: 109 Performed By: #### L 100.0100 ####[facility] [address] [place], [address] Monocytes/100 WBC (Bld) 6.8 % Normal 0-10 [facility] Comment on above: Order Comment: 109 Performed By: #### L 100.0100 ####[facility] [address] [place], [address] Neutrophils/100 WBC (Bld) 70.5 % High 47-70 [facility] Comment on above: Order Comment: 109 Performed By: #### L 100.0100 ####[facility] [address] [place], [address] Nucleated RBC (Bld) [#/Vol] 0 10*3/uL Normal 0-5 [facility] Comment on above: Order Comment: 109 Performed By: #### L 100.0100 ####[facility] [address] [place], [address] Platelet mean volume (Bld) [Entitic vol] 11.0 fL Normal 6.2-12.0 [facility] Comment on above: Order Comment: 109 Performed By: #### L 100.0100 ####[facility] [address] [place], [address] Platelets (Bld) [#/Vol] 208 10*3/uL Normal 150-450 [facility] Comment on above: Order Comment: 109 Performed By: #### L 100.0100 ####[facility] [address] [place], [address] RBC (Bld) [#/Vol] 4.59 10*6/uL Low 4.6-6.[address] [facility] Comment on above: Order Comment: 109 Performed By: #### L 100.0100 ####[facility] [address] [place], [address] RDW SD 42.8 fl Normal 35.1-43.9 [facility] Comment on above: Order Comment: 109 Performed By: #### L 100.0100 ####[facility] [address] [place], [address] WBC (Bld) [#/Vol] 10.0 10*3/uL Normal 4.4-11.[address] [facility] Comment on above: Order Comment: 109 Performed By: #### L 100.0100 ####[facility] [address] [place], [address] Eosinophil percentageOrdered By: Renard Burgos on 07-01-2024 Eosinophils/100 WBC (Bld) 1.3 % 0-5 [facility] Erythrocyte distribution wid th ratioOrdered By: Renard Burgos on 07-01-2024 Erythrocyte distribution width (RBC) [Ratio] 13.1 % 11.6-14.6 [facility] Erythrocyte distribution wid th standard deviationOrdered By: Renard Burgos on 07-01-2024 Erythrocyte distribution width (RBC) [Entitic vol] 42.8 fL 35.1-43.9 [facility] Erythrocyte distribution width (RBC) [Ratio] 42.8 fl 35.1-43.9 [facility] Hematocrit Auto (Bld) [Volum e fraction]Ordered By: Renard Burgos on 07-01-2024 Hematocrit (Bld) [Volume fraction] 41.7 % 40-54 [facility] Hemoglobin measurementOrdere d By: Renard Burgos on 07-01-2024 Hemoglobin (Bld) [Mass/Vol] 13.6 g/dL 13.0-16.5 [facility] Immature granulocytes/100 WB C Auto (Bld)Ordered By: Renard Burgos on 07-01-2024 Immature granulocytes/100 WBC (Bld) 0.500 % 0.0-0.9 [facility] Comment on above: IG% - Immature Granu locytes (promyelocytes, myelocytes and metamyelocytes) > 1% indicates that a LEFT SHIFT is Present. Lymphocytes Auto (Unsp spec) [#/Vol]Ordered By: Renard Burgos on 07-01-2024 Lymphocytes (Bld) [#/Vol] 2.03 10*3/uL 0.83-4.51 [facility] Lymphocytes/100 WBC Auto (Un sp spec)Ordered By: Renard Burgos on 07-01-2024 Lymphocytes/100 WBC (Bld) 20.3 % 19-41 [facility] MCV (mean corpuscular volume ) determinationOrdered By: Renard Burgos on 07-01-2024 MCV (RBC) [Entitic vol] 90.8 fL 80-94 [facility] Mean corpuscular hemoglobin (MCH) determinationOrdered By: Renard Burgos on 07-01-2024 MCH (RBC) [Entitic mass] 29.6 pg 27.0-32.0 [facility] Mean corpuscular hemoglobin concentration (MCHC) determinationOrdered By: Renard Burgos on 07-01-2024 MCHC (RBC) [Mass/Vol] 32.6 g/dL 32-36 [facility] Mean platelet volume determi nationOrdered By: Renard Burgos on 07-01-2024 Platelet mean volume (Bld) [Entitic vol] 11.0 fL 6.2-12.0 [facility] Monocyte percentageOrdered B y: Renard Burgos on 07-01-2024 Monocytes/100 WBC (Bld) 6.8 % 0-10 [facility] Neutrophil percentageOrdered By: Renard Burgos on 07-01-2024 Neutrophils/100 WBC (Bld) 70.5 % High 47-70 [facility] Nucleated red blood cell per centageOrdered By: Renard Burgos on 07-01-2024 Nucleated RBC/100 WBC (Bld) [Ratio] 0 % 0-5 [facility] Platelet countOrdered By: Garrick Bhatt on 07-01-2024 Platelets (Bld) [#/Vol] 208 10*3/uL 150-450 [facility] RBC Auto (Bld) [#/Vol]Ordere d By: Renard Burgos on 07-01-2024 RBC (Bld) [#/Vol] 4.59 10*6/uL Low 4.6-6.[address] [facility] White blood cell (WBC) count Ordered By: Renard Burgos on 07-01-2024 WBC (Bld) [#/Vol] 10.0 10*3/uL 4.4-11.[address] [facility] Urine Cultureon 06-30-2024 URC Normal [facility] Comment on above: Performed By: #### M 100.2200, L400.0001 ####[facility] [address] [place], [address] Bilirubin Test strip Ql (U)O rdered By: Renard Burgos on 06-27-2024 Bilirubin Ql (U) Negative Negative [facility] Epithelial cells.squamous LM Ql (Urine sed)Ordered By: Renard Burgos on 06-27-2024 Epithelial cells.squamous LM.HPF (Urine sed) [#/Area] 0 /[HPF] 0-5 [facility] Glucose Ql (U)Ordered By: Garrick Bhatt on 06-27-2024 Urine Glucose (UA) Normal mg/dl Normal [facility] Ketones Test strip Ql (U)Ord ered By: Renard Burgos on 06-27-2024 Ketones Ql (U) Negative Negative [facility] Microscopic analysis of urin e for red blood cells (RBC)Ordered By: Renard Burgos on 06-27-2024 Microscopic analysis of urine for red blood cells (RBC) 0 SEEN /hpf 0-5 [facility] Urine RBC 0 SEEN /hpf 0-5 [facility] Mucus LM Ql (Urine sed)Order ed By: Renard Burgos on 06-27-2024 Mucus Ql (Urine sed) 0 SEEN /hpf [facility] Nitrite Test strip Ql (U)Ord ered By: Renard Burgos on 06-27-2024 Nitrite Ql (U) Negative Negative [facility] Protein Test strip Ql (U)Ord ered By: Renard Burgos on 06-27-2024 Protein Ql (U) 15 mg/dl High Negative [facility] Squamous epithelial cells de tection in urine sediment by light microscopyOrdered By: Renard Burgos on 06-27-2024 Epithelial cells.squamous LM Ql (Urine sed) 0 SEEN /hpf 0-5 [facility] Urinalysis, Completeon 06-27 RBC 0 SEEN Normal 0-5 [facility] Comment on above: Order Comment: ARCHANA TER SPECIMEN Performed By: #### M 100.2200, L400.0001 ####[facility] [address] [place], [address] Urine blood detectionOrdered By: Renard Burgos on 06-27-2024 Urine Occult Blood Negative Negative [facility] Urine clarityOrdered By: Lyubov Burgos on 06-27-2024 Clarity (U) Clear Clear [facility] Urine color determinationOrd ered By: Renard Burgos on 06-27-2024 Color (U) Yellow Yellow [facility] Urine cultureOrdered By: Lyubov Burgos on 06-27-2024 Bacteria identified Cx Nom (U) Staphylococcus warneri Abnormal [facility] Bacteria identified Cx Nom (U) Aerococcus viridans. Abnormal [facility] Bacteria identified Cx Nom (U) Presumptive C albicans Abnormal [facility] Bacteria identified Cx Nom (U) Staphylococcus warneri Abnormal [facility] Bacteria identified Cx Nom (U) Aerococcus viridans. Abnormal [facility] Bacteria identified Cx Nom (U) Presumptive C albicans Abnormal [facility] Urine glucose detectionOrder ed By: Renard Burgos on 06-27-2024 Glucose Ql (U) Normal mg/dl Normal [facility] Urine leukocyte esterase det ection by dipstickOrdered By: Renard Burgos on 06-27-2024 Leukocyte esterase Test strip Ql (U) Negative Negative [facility] Urine pHOrdered By: Renard ocampo on 06-27-2024 pH (U) 7.0 [pH] 5.0 - 8.0 [facility] Urine sediment bacteria coun t by microscopy (number/high power field)Ordered By: Renard Burgos on 06-27-2024 Bacteria LM.HPF (Urine sed) [#/Area] 0 /[HPF] None Seen [facility] Urine specific gravity measu rementOrdered By: Renard Burgos on 06-27-2024 Specific gravity (U) [Rel density] 1.010 1.002-1.030 [facility] Urine urobilinogen measureme ntOrdered By: Renard Burgos on 06-27-2024 Urobilinogen Ql (U) 4 mg/dl High Normal [facility] Urobilinogen Ql (U)Ordered B y: Renard Burgos on 06-27-2024 Urobilinogen (U) [Mass/Vol] 4 mg/dL High Normal [facility] White blood cell countOrdere d By: Renard Burgos on 06-27-2024 Urine WBC 0 SEEN /hpf 0-5 [facility] White blood cell count 0 SEEN /hpf 0-[address] [facility] [address] CHEST WO IV CONTRASTon CT CHEST WO IV CONTRAST [facility] 1955 [id number] Ex[facility] Date/Time: 06/24/2024 16:30 Procedure: CT CHEST [...] infection Report Dictated on Electronically Signed By: Maria Eugenia Ruiz MD Electronically Signed Date/Time: 06/26/2024 8:07 AM EST Cough x 2months Normal [facility] CT Chest WO contraston 06-26 Nonspecific groundglass densities are noted in the bilateral lower lobes. Correlate with concern for atypical infection Report Dictated on Electronically Signed By: Maria Eugenia Ruiz MD Electronically Signed Date/Time: 06/26/2024 8:07 AM EST [facility] [employer] Patient Name: KATHYA HOOPER : 1955 Exam Date/Time: 06/24/2024 16:30 Procedure: CT CHEST [...] There is ossification of the supraspinous ligament. [facility] Maria Eugenia Ruiz MD - 06/26/2024 Patient Name: [facility] : 1955 [id number] Exam Date/Time: 06/24/2024 16:30 Procedure: CT CHEST [...] infection Report Dictated on Electronically Signed By: Maria Eugenia Ruiz MD Electronically Signed Date/Time: 06/26/2024 8:07 AM EST [employer] CT Chest WO contrastOrdered By: Maria Eugenia Ruiz on 06-26-2024 [employer] Work Phone: Absolute lymphocyte countOrd ered By: Renard Burgos on 06-24-2024 Lymphocytes Auto (Unsp spec) [#/Vol] 1.65 10*3/uL 0.83-4.51 [facility] Absolute neutrophil countOrd ered By: Renard Burgos on 06-24-2024 Neutrophils (Bld) [#/Vol] 10.2 10*3/uL High 2.0-7.7 [facility] Automated lymphocyte count a s percentage of total leukocytesOrdered By: Renard Burgos on 06-24-2024 Lymphocytes/100 WBC Auto (Unsp spec) 12.8 % Low 19-41 [facility] Basic Metabolic Profile (BMP )on 06-24-2024 BUN/CRE 24.9 RATIO High 10-20 [facility] Comment on above: Order Comment: 109.1 Performed By: #### L 100.0100, L500.2500 ####[facility] [address] [place], [address] CA,Total 8.3 mg/dL Low 8.5-10.1 [facility] Comment on above: Order Comment: 109.1 Performed By: #### L 100.0100, L500.2500 ####[facility] [address] [place], [address] Chloride [Moles/Vol] 107 mmol/L Normal 98-107 [facility] Comment on above: Order Comment: 109.1 Performed By: #### L 100.0100, L500.2500 ####[facility] [address] [place], [address] CO2 [Moles/Vol] 24.0 mmol/L Normal 21.0-32.0 [facility] Comment on above: Order Comment: 109.1 Performed By: #### L 100.0100, L500.2500 ####[facility] [address] [place], [address] Creatinine [Mass/Vol] 0.60 mg/dL Low 0.70-1.30 [facility] Comment on above: Order Comment: 109.1 Result Comment: The validity of the calculated GFR GFRAA in patients over70 years has not been determined. Clinical correlation isessential. Performed By: #### L 100.0100, L500.2500 ####[facility] [address] [place], [address] EST GFR - AA 172 mL/min Normal >60 [facility] Comment on above: Order Comment: 109.1 Result Comment: Afri can Chilean GFR Calc Performed By: #### L 100.0100, L500.2500 ####[facility] [address] [place], [address] GAP 8 Normal 5-15 [facility] Comment on above: Order Comment: 109.1 Performed By: #### L 100.0100, L500.2500 ####[facility] [address] [place], [address] GFR/1.73 sq M.predicted among non-blacks MDRD (S/P/Bld) [Vol rate/Area] 142 mL/min/{1.73_m2} Normal >60 [facility] Comment on above: Order Comment: 109.1 Result Comment: Non- GFR Calc Performed By: #### L 100.0100, L500.2500 ####[facility] [address] [place], [address] Glucose [Mass/Vol] 101 mg/dL Normal 74-106 [facility] Comment on above: Order Comment: 109.1 Result Comment: Fast ing Glucose result from 100 to 125 mg/dLsuggests IMPAIRED HOMEOSTASIS per A.D.A. criteria. Performed By: #### L 100.0100, L500.2500 ####[facility] [address] [place], [address] Potassium [Moles/Vol] 4.1 mmol/L Normal 3.5-5.1 [facility] Comment on above: Order Comment: 109.1 Performed By: #### L 100.0100, L500.2500 ####[facility] [address] [place], [address] Sodium [Moles/Vol] 139 mmol/L Normal 136-145 [facility] Comment on above: Order Comment: 109.1 Performed By: #### L 100.0100, L500.2500 ####[facility] [address] [place], [address] Urea nitrogen [Mass/Vol] 15 mg/dL Normal 7-18 [facility] Comment on above: Order Comment: 109.1 Performed By: #### L 100.0100, L500.2500 ####[facility] [address] [place], [address] Basophil percentageOrdered B y: Renard Burgos on 06-24-2024 Basophils/100 WBC (Bld) 0.5 % 0-1 [facility] Blood urea nitrogen (BUN)/cr eatinine ratioOrdered By: Renard Burgos on 06-24-2024 Urea nitrogen/Creatinine [Mass ratio] 24.9 mg/mg High 10-20 [facility] CBC W/Diff, Automatedon - Absolute Lymph 1.65 X10 3/uL Normal 0.83-4.51 [facility] Comment on above: Order Comment: 109.1 Performed By: #### L 100.0100, L500.2500 ####[facility] [address] [place], [address] Absolute Neut 10.2 X10 3/uL High 2.0-7.7 [facility] Comment on above: Order Comment: 109.1 Performed By: #### L 100.0100, L500.2500 ####[facility] [address] [place], [address] Basophils/100 WBC (Bld) 0.5 % Normal 0-1 [facility] Comment on above: Order Comment: 109.1 Performed By: #### L 100.0100, L500.2500 ####[facility] [address] [place], [address] Eosinophils/100 WBC (Bld) 0.8 % Normal 0-5 [facility] Comment on above: Order Comment: 109.1 Performed By: #### L 100.0100, L500.2500 ####[facility] [address] [place], [address] Erythrocyte distribution width (RBC) [Ratio] 13.2 % Normal 11.6-14.6 [facility] Comment on above: Order Comment: 109.1 Performed By: #### L 100.0100, L500.2500 ####[facility] [address] [place], [address] Hematocrit (Bld) [Volume fraction] 41.8 % Normal 40-54 [facility] Comment on above: Order Comment: 109.1 Performed By: #### L 100.0100, L500.2500 ####[facility] [address] [place], [address] Hemoglobin (Bld) [Mass/Vol] 13.6 g/dL Normal 13.0-16.5 [facility] Comment on above: Order Comment: 109.1 Performed By: #### L 100.0100, L500.2500 ####[facility] [address] [place], [address] IG% 0.500 Normal 0.0-0.9 [facility] Comment on above: Order Comment: 109.1 Result Comment: IG% - Immature Granulocytes (promyelocytes, myelocytes andmetamyelocytes) > 1% indicates that a LEFT SHIFT is Present. Performed By: #### L 100.0100, L500.2500 ####[facility] [address] [place], [address] Lymphocytes/100 WBC (Bld) 12.8 % Low 19-41 [facility] Comment on above: Order Comment: 109.1 Performed By: #### L 100.0100, L500.2500 ####[facility] [address] [place], [address] MCH (RBC) [Entitic mass] 30.2 pg Normal 27.0-32.0 [facility] Comment on above: Order Comment: 109.1 Performed By: #### L 100.0100, L500.2500 ####[facility] [address] [place], [address] MCHC (RBC) [Mass/Vol] 32.5 g/dL Normal 32-36 [facility] Comment on above: Order Comment: 109.1 Performed By: #### L 100.0100, L500.2500 ####[facility] [address] [place], [address] MCV (RBC) [Entitic vol] 92.7 fL Normal 80-94 [facility] Comment on above: Order Comment: 109.1 Performed By: #### L 100.0100, L500.2500 ####[facility] [address] [place], [address] Monocytes/100 WBC (Bld) 6.4 % Normal 0-10 [facility] Comment on above: Order Comment: 109.1 Performed By: #### L 100.0100, L500.2500 ####[facility] [address] [place], [address] Neutrophils/100 WBC (Bld) 79.0 % High 47-70 [facility] Comment on above: Order Comment: 109.1 Performed By: #### L 100.0100, L500.2500 ####[facility] [address] [place], [address] Nucleated RBC (Bld) [#/Vol] 0 10*3/uL Normal 0-5 [facility] Comment on above: Order Comment: 109.1 Performed By: #### L 100.0100, L500.2500 ####[facility] [address] [place], [address] Platelet mean volume (Bld) [Entitic vol] 11.3 fL Normal 6.2-12.0 [facility] Comment on above: Order Comment: 109.1 Performed By: #### L 100.0100, L500.2500 ####[facility] [address] [place], [address] Platelets (Bld) [#/Vol] 171 10*3/uL Normal 150-450 [facility] Comment on above: Order Comment: 109.1 Performed By: #### L 100.0100, L500.2500 ####[facility] [address] [place], [address] RBC (Bld) [#/Vol] 4.51 10*6/uL Low 4.6-6.[address] [facility] Comment on above: Order Comment: 109.1 Performed By: #### L 100.0100, L500.2500 ####[facility] [address] [place], [address] RDW SD 45.1 fl High 35.1-43.9 [facility] Comment on above: Order Comment: 109.1 Performed By: #### L 100.0100, L500.2500 ####[facility] [address] [place], [address] WBC (Bld) [#/Vol] 12.9 10*3/uL High 4.4-11.[address] [facility] Comment on above: Order Comment: 109.1 Performed By: #### L 100.0100, L500.2500 ####[facility] [address] [place], [address] CT Chest WO contraston 06-24 Radiology Study observation (narrative) Estefania smith Carbon dioxide measurementOr dered By: Renard Burgos on 06-24-2024 CO2 [Moles/Vol] 24.0 mmol/L 21.0-32.0 [facility] Chloride measurementOrdered By: Renard Burgos on 06-24-2024 Chloride [Moles/Vol] 107 mmol/L 98-107 [facility] Eosinophil percentageOrdered By: Renard Burgos on 06-24-2024 Eosinophils/100 WBC (Bld) 0.8 % 0-5 [facility] Erythrocyte distribution wid th ratioOrdered By: Renard Burgos on 06-24-2024 Erythrocyte distribution width (RBC) [Ratio] 13.2 % 11.6-14.6 [facility] Erythrocyte distribution wid th standard deviationOrdered By: Renard uBrgos on 06-24-2024 Erythrocyte distribution width (RBC) [Entitic vol] 45.1 fL High 35.1-43.9 [facility] Erythrocyte distribution width (RBC) [Ratio] 45.1 fl High 35.1-43.9 [facility] Estimated glomerular filtrat ion rate (GFR) AmericanOrdered By: Renard Burgos on 06-24-2024 Estimated GFR (MDRD) Amer 172 mL/min >60 [facility] Comment on above: GFR Calc Glomerular filtration rate ( GFR) estimationOrdered By: Renard Burgos on 06-24-2024 Estimated GFR (MDRD) Non-Af Amer 142 mL/min >60 [facility] Comment on above: Non- GFR Calc GFR/1.73 sq M.predicted among non-blacks MDRD (S/P/Bld) [Vol rate/Area] 142 mL/min/{1.73_m2} >60 [facility] Comment on above: Non- GFR Calc Glucose measurementOrdered B y: Renard Burgos on 06-24-2024 Glucose [Mass/Vol] 101 mg/dL 74-106 [facility] Comment on above: Fasting Glucose resu lt from 100 to 125 mg/dL suggests IMPAIRED HOMEOSTASIS per A.D.A. criteria. Hematocrit Auto (Bld) [Volum e fraction]Ordered By: Renard Burgos on 06-24-2024 Hematocrit (Bld) [Volume fraction] 41.8 % 40-54 [facility] Hemoglobin measurementOrdere d By: Renard Burgos on 06-24-2024 Hemoglobin (Bld) [Mass/Vol] 13.6 g/dL 13.0-16.5 [facility] Immature granulocytes/100 WB C Auto (Bld)Ordered By: Renard Burgos on 06-24-2024 Immature granulocytes/100 WBC (Bld) 0.500 % 0.0-0.9 [facility] Comment on above: IG% - Immature Granu locytes (promyelocytes, myelocytes and metamyelocytes) > 1% indicates that a LEFT SHIFT is Present. Lymphocytes Auto (Unsp spec) [#/Vol]Ordered By: Renard Burgos on 06-24-2024 Lymphocytes (Bld) [#/Vol] 1.65 10*3/uL 0.83-4.51 [facility] Lymphocytes/100 WBC Auto (Un sp spec)Ordered By: Renard Burgos on 06-24-2024 Lymphocytes/100 WBC (Bld) 12.8 % Low 19-41 [facility] MCV (mean corpuscular volume ) determinationOrdered By: Renard Burgos on 06-24-2024 MCV (RBC) [Entitic vol] 92.7 fL 80-94 [facility] Mean corpuscular hemoglobin (MCH) determinationOrdered By: Renard Burgos on 06-24-2024 MCH (RBC) [Entitic mass] 30.2 pg 27.0-32.0 [facility] Mean corpuscular hemoglobin concentration (MCHC) determinationOrdered By: Renard Burgos on 06-24-2024 MCHC (RBC) [Mass/Vol] 32.5 g/dL 32-36 [facility] Mean platelet volume determi nationOrdered By: Renard Burgos on 06-24-2024 Platelet mean volume (Bld) [Entitic vol] 11.3 fL 6.2-12.0 [facility] Monocyte percentageOrdered B y: Renard Burgos on 06-24-2024 Monocytes/100 WBC (Bld) 6.4 % 0-10 [facility] Neutrophil percentageOrdered By: Renard Burgos on 06-24-2024 Neutrophils/100 WBC (Bld) 79.0 % High 47-70 [facility] Nucleated red blood cell per centageOrdered By: Renard Burgos on 06-24-2024 Nucleated RBC/100 WBC (Bld) [Ratio] 0 % 0-5 [facility] Platelet countOrdered By: Garrick Bhatt on 06-24-2024 Platelets (Bld) [#/Vol] 171 10*3/uL 150-450 [facility] Potassium measurementOrdered By: Renard Burgos on 06-24-2024 Potassium [Moles/Vol] 4.1 mmol/L 3.5-5.1 [facility] RBC Auto (Bld) [#/Vol]Ordere d By: Renard Burgos on 06-24-2024 RBC (Bld) [#/Vol] 4.51 10*6/uL Low 4.6-6.[address] [facility] Serum anion gap measurementO rdered By: Renard Burgos on 06-24-2024 Anion gap [Moles/Vol] 8 mmol/L 5-15 [facility] Serum or plasma calcium gordy urement (mass/volume)Ordered By: Renard Burgos on 06-24-2024 Calcium [Mass/Vol] 8.3 mg/dL Low 8.5-10.1 [facility] Serum or plasma creatinine m easurement (mass/volume)Ordered By: Renard Burgos on 06-24-2024 Creatinine [Mass/Vol] 0.60 mg/dL Low 0.70-1.30 [facility] Comment on above: The validity of the calculated GFR & GFRAA in patients over 70 years has not been determined. Clinical correlation is essential. Serum or plasma urea nitroge n measurement (mass/volume)Ordered By: Renard Burgos on 06-24-2024 Urea nitrogen [Mass/Vol] 15 mg/dL 7-18 [facility] Sodium levelOrdered By: Lamine Burgos on 06-24-2024 Sodium [Moles/Vol] 139 mmol/L 136-145 [facility] White blood cell (WBC) count Ordered By: Renard Burgos on 06-24-2024 WBC (Bld) [#/Vol] 12.9 10*3/uL High 4.4-11.[address] [facility] Absolute lymphocyte countOrd ered By: Renard Burgos on 06-17-2024 Lymphocytes Auto (Unsp spec) [#/Vol] 2.00 10*3/uL 0.83-4.51 [facility] Absolute neutrophil countOrd ered By: Renard Burgos on 06-17-2024 Neutrophils (Bld) [#/Vol] 5.1 10*3/uL 2.0-7.7 [facility] Automated lymphocyte count a s percentage of total leukocytesOrdered By: Renard Burgos on 06-17-2024 Lymphocytes/100 WBC Auto (Unsp spec) 24.5 % 19-41 [facility] Basophil percentageOrdered B y: Renard Burgos on 06-17-2024 Basophils/100 WBC (Bld) 1.1 % High 0-1 [facility] CBC W/Diff, Automatedon 06-01 Absolute Lymph 2.00 X10 3/uL Normal 0.83-4.51 [facility] Comment on above: Order Comment: 109-1 Performed By: #### L 100.0100 ####[facility] [address] [place], [address] Absolute Neut 5.1 X10 3/uL Normal 2.0-7.7 [facility] Comment on above: Order Comment: 109-1 Performed By: #### L 100.0100 ####[facility] [address] [place], [address] Basophils/100 WBC (Bld) 1.1 % High 0-1 [facility] Comment on above: Order Comment: 109-1 Performed By: #### L 100.0100 ####[facility] [address] [place], [address] Eosinophils/100 WBC (Bld) 3.4 % Normal 0-5 [facility] Comment on above: Order Comment: 109-1 Performed By: #### L 100.0100 ####[facility] [address] [place], [address] Erythrocyte distribution width (RBC) [Ratio] 13.3 % Normal 11.6-14.6 [facility] Comment on above: Order Comment: 109-1 Performed By: #### L 100.0100 ####[facility] [address] [place], [address] Hematocrit (Bld) [Volume fraction] 39.3 % Low 40-54 [facility] Comment on above: Order Comment: 109-1 Performed By: #### L 100.0100 ####[facility] [address] [place], [address] Hemoglobin (Bld) [Mass/Vol] 12.8 g/dL Low 13.0-16.5 [facility] Comment on above: Order Comment: 109-1 Performed By: #### L 100.0100 ####[facility] [address] [place], [address] IG% 0.200 Normal 0.0-0.9 [facility] Comment on above: Order Comment: 109-1 Result Comment: IG% - Immature Granulocytes (promyelocytes, myelocytes andmetamyelocytes) > 1% indicates that a LEFT SHIFT is Present. Performed By: #### L 100.0100 ####[facility] [address] [place], [address] Lymphocytes/100 WBC (Bld) 24.5 % Normal 19-41 [facility] Comment on above: Order Comment: 109-1 Performed By: #### L 100.0100 ####[facility] [address] [place], [address] MCH (RBC) [Entitic mass] 29.6 pg Normal 27.0-32.0 [facility] Comment on above: Order Comment: 109-1 Performed By: #### L 100.0100 ####[facility] [address] [place], [address] MCHC (RBC) [Mass/Vol] 32.6 g/dL Normal 32-36 [facility] Comment on above: Order Comment: 109-1 Performed By: #### L 100.0100 ####[facility] [address] [place], [address] MCV (RBC) [Entitic vol] 90.8 fL Normal 80-94 [facility] Comment on above: Order Comment: 109-1 Performed By: #### L 100.0100 ####[facility] [address] [place], [address] Monocytes/100 WBC (Bld) 8.8 % Normal 0-10 [facility] Comment on above: Order Comment: 109-1 Performed By: #### L 100.0100 ####[facility] [address] [place], [address] Neutrophils/100 WBC (Bld) 62.0 % Normal 47-70 [facility] Comment on above: Order Comment: 109-1 Performed By: #### L 100.0100 ####[facility] [address] [place], [address] Nucleated RBC (Bld) [#/Vol] 0 10*3/uL Normal 0-5 [facility] Comment on above: Order Comment: 109-1 Performed By: #### L 100.0100 ####[facility] [address] [place], [address] Platelet mean volume (Bld) [Entitic vol] 10.9 fL Normal 6.2-12.0 [facility] Comment on above: Order Comment: 109-1 Performed By: #### L 100.0100 ####[facility] [address] [place], [address] Platelets (Bld) [#/Vol] 218 10*3/uL Normal 150-450 [facility] Comment on above: Order Comment: 109-1 Performed By: #### L 100.0100 ####[facility] [address] [place], [address] RBC (Bld) [#/Vol] 4.33 10*6/uL Low 4.6-6.[address] [facility] Comment on above: Order Comment: 109-1 Performed By: #### L 100.0100 ####[facility] [address] [place], [address] RDW SD 44.0 fl High 35.1-43.9 [facility] Comment on above: Order Comment: 109-1 Performed By: #### L 100.0100 ####[facility] [address] [place], [address] WBC (Bld) [#/Vol] 8.2 10*3/uL Normal 4.4-11.0 [facility] Comment on above: Order Comment: 109-1 Performed By: #### L 100.0100 ####[facility] [address] [place], [address] Eosinophil percentageOrdered By: Renard Burgos on 06-17-2024 Eosinophils/100 WBC (Bld) 3.4 % 0-5 [facility] Erythrocyte distribution wid th ratioOrdered By: Renard Burgos on 06-17-2024 Erythrocyte distribution width (RBC) [Ratio] 13.3 % 11.6-14.6 [facility] Erythrocyte distribution wid th standard deviationOrdered By: Renard Burgos on 06-17-2024 Erythrocyte distribution width (RBC) [Entitic vol] 44.0 fL High 35.1-43.9 [facility] Erythrocyte distribution width (RBC) [Ratio] 44.0 fl High 35.1-43.9 [facility] Hematocrit Auto (Bld) [Volum e fraction]Ordered By: Renard Burgos on 06-17-2024 Hematocrit (Bld) [Volume fraction] 39.3 % Low 40-54 [facility] Hemoglobin measurementOrdere d By: Renard Burgos on 06-17-2024 Hemoglobin (Bld) [Mass/Vol] 12.8 g/dL Low 13.0-16.5 [facility] Immature granulocytes/100 WB C Auto (Bld)Ordered By: Renard Burgos on 06-17-2024 Immature granulocytes/100 WBC (Bld) 0.200 % 0.0-0.9 [facility] Comment on above: IG% - Immature Granu locytes (promyelocytes, myelocytes and metamyelocytes) > 1% indicates that a LEFT SHIFT is Present. Lymphocytes Auto (Unsp spec) [#/Vol]Ordered By: Renard Burgos on 06-17-2024 Lymphocytes (Bld) [#/Vol] 2.00 10*3/uL 0.83-4.51 [facility] Lymphocytes/100 WBC Auto (Un sp spec)Ordered By: Renard Burgos on 06-17-2024 Lymphocytes/100 WBC (Bld) 24.5 % 19-41 [facility] MCV (mean corpuscular volume ) determinationOrdered By: Renard Burgos on 06-17-2024 MCV (RBC) [Entitic vol] 90.8 fL 80-94 [facility] Mean corpuscular hemoglobin (MCH) determinationOrdered By: Renard Burgos on 06-17-2024 MCH (RBC) [Entitic mass] 29.6 pg 27.0-32.0 [facility] Mean corpuscular hemoglobin concentration (MCHC) determinationOrdered By: Renard Burgos on 06-17-2024 MCHC (RBC) [Mass/Vol] 32.6 g/dL 32-36 [facility] Mean platelet volume determi nationOrdered By: Renard Burgos on 06-17-2024 Platelet mean volume (Bld) [Entitic vol] 10.9 fL 6.2-12.0 [facility] Monocyte percentageOrdered B y: Renard Burgos on 06-17-2024 Monocytes/100 WBC (Bld) 8.8 % 0-10 [facility] Neutrophil percentageOrdered By: Renard Burgos on 06-17-2024 Neutrophils/100 WBC (Bld) 62.0 % 47-70 [facility] Nucleated red blood cell per centageOrdered By: Renard Burgos on 06-17-2024 Nucleated RBC/100 WBC (Bld) [Ratio] 0 % 0-5 [facility] Platelet countOrdered By: Garrick Bhatt on 06-17-2024 Platelets (Bld) [#/Vol] 218 10*3/uL 150-450 [facility] RBC Auto (Bld) [#/Vol]Ordere d By: Renard Burgos on 06-17-2024 RBC (Bld) [#/Vol] 4.33 10*6/uL Low 4.6-6.[address] [facility] White blood cell (WBC) count Ordered By: Renard Burgos on 06-17-2024 WBC (Bld) [#/Vol] 8.2 10*3/uL 4.4-11.0 [facility] Absolute lymphocyte countOrd ered By: Renard Burgos on 06-10-2024 Lymphocytes Auto (Unsp spec) [#/Vol] 2.38 10*3/uL 0.83-4.51 [facility] Absolute neutrophil countOrd ered By: Renard Burgos on 06-10-2024 Neutrophils (Bld) [#/Vol] 5.3 10*3/uL 2.0-7.7 [facility] Automated lymphocyte count a s percentage of total leukocytesOrdered By: Renard Burgos on 06-10-2024 Lymphocytes/100 WBC Auto (Unsp spec) 27.5 % 19-41 [facility] Basophil percentageOrdered B y: Renard Burgos on 06-10-2024 Basophils/100 WBC (Bld) 0.7 % 0-1 [facility] CBC W/Diff, Automatedon 06-01-2024 Absolute Lymph 2.38 X10 3/uL Normal 0.83-4.51 [facility] Comment on above: Order Comment: 109.1 Performed By: #### L 100.0100 ####[facility] [address] [place], [address] Absolute Neut 5.3 X10 3/uL Normal 2.0-7.7 [facility] Comment on above: Order Comment: 109.1 Performed By: #### L 100.0100 ####[facility] [address] [place], [address] Basophils/100 WBC (Bld) 0.7 % Normal 0-1 [facility] Comment on above: Order Comment: 109.1 Performed By: #### L 100.0100 ####[facility] [address] [place], [address] Eosinophils/100 WBC (Bld) 0.7 % Normal 0-5 [facility] Comment on above: Order Comment: 109.1 Performed By: #### L 100.0100 ####[facility] [address] [place], [address] Erythrocyte distribution width (RBC) [Ratio] 13.1 % Normal 11.6-14.6 [facility] Comment on above: Order Comment: 109.1 Performed By: #### L 100.0100 ####[facility] [address] [place], [address] Hematocrit (Bld) [Volume fraction] 41.1 % Normal 40-54 [facility] Comment on above: Order Comment: 109.1 Performed By: #### L 100.0100 ####[facility] [address] [place], [address] Hemoglobin (Bld) [Mass/Vol] 13.5 g/dL Normal 13.0-16.5 [facility] Comment on above: Order Comment: 109.1 Performed By: #### L 100.0100 ####[facility] [address] [place], [address] IG% 0.500 Normal 0.0-0.9 [facility] Comment on above: Order Comment: 109.1 Result Comment: IG% - Immature Granulocytes (promyelocytes, myelocytes andmetamyelocytes) > 1% indicates that a LEFT SHIFT is Present. Performed By: #### L 100.0100 ####[facility] [address] [place], [address] Lymphocytes/100 WBC (Bld) 27.5 % Normal 19-41 [facility] Comment on above: Order Comment: 109.1 Performed By: #### L 100.0100 ####[facility] [address] [place], [address] MCH (RBC) [Entitic mass] 30.1 pg Normal 27.0-32.0 [facility] Comment on above: Order Comment: 109.1 Performed By: #### L 100.0100 ####[facility] [address] [place], [address] MCHC (RBC) [Mass/Vol] 32.8 g/dL Normal 32-36 [facility] Comment on above: Order Comment: 109.1 Performed By: #### L 100.0100 ####[facility] [address] [place], [address] MCV (RBC) [Entitic vol] 91.7 fL Normal 80-94 [facility] Comment on above: Order Comment: 109.1 Performed By: #### L 100.0100 ####[facility] [address] [place], [address] Monocytes/100 WBC (Bld) 9.6 % Normal 0-10 [facility] Comment on above: Order Comment: 109.1 Performed By: #### L 100.0100 ####[facility] [address] [place], [address] Neutrophils/100 WBC (Bld) 61.0 % Normal 47-70 [facility] Comment on above: Order Comment: 109.1 Performed By: #### L 100.0100 ####[facility] [address] [place], [address] Nucleated RBC (Bld) [#/Vol] 0 10*3/uL Normal 0-5 [facility] Comment on above: Order Comment: 109.1 Performed By: #### L 100.0100 ####[facility] [address] [place], [address] Platelet mean volume (Bld) [Entitic vol] 11.0 fL Normal 6.2-12.0 [facility] Comment on above: Order Comment: 109.1 Performed By: #### L 100.0100 ####[facility] [address] [place], [address] Platelets (Bld) [#/Vol] 261 10*3/uL Normal 150-450 [facility] Comment on above: Order Comment: 109.1 Performed By: #### L 100.0100 ####[facility] [address] [place], [address] RBC (Bld) [#/Vol] 4.48 10*6/uL Low 4.6-6.[address] [facility] Comment on above: Order Comment: 109.1 Performed By: #### L 100.0100 ####[facility] [address] [place], [address] RDW SD 43.2 fl Normal 35.1-43.9 [facility] Comment on above: Order Comment: 109.1 Performed By: #### L 100.0100 ####[facility] [address] [place], [address] WBC (Bld) [#/Vol] 8.6 10*3/uL Normal 4.4-11.0 [facility] Comment on above: Order Comment: 109.1 Performed By: #### L 100.0100 ####[facility] [address] [place], [address] Eosinophil percentageOrdered By: Renard Burgos on 06-10-2024 Eosinophils/100 WBC (Bld) 0.7 % 0-5 [facility] Erythrocyte distribution wid th ratioOrdered By: Renard Burgos on 06-10-2024 Erythrocyte distribution width (RBC) [Ratio] 13.1 % 11.6-14.6 [facility] Erythrocyte distribution wid th standard deviationOrdered By: Renard Burgos on 06-10-2024 Erythrocyte distribution width (RBC) [Entitic vol] 43.2 fL 35.1-43.9 [facility] Erythrocyte distribution width (RBC) [Ratio] 43.2 fl 35.1-43.9 [facility] Hematocrit Auto (Bld) [Volum e fraction]Ordered By: Renard Burgos on 06-10-2024 Hematocrit (Bld) [Volume fraction] 41.1 % 40-54 [facility] Hemoglobin measurementOrdere d By: Renard Burgos on 06-10-2024 Hemoglobin (Bld) [Mass/Vol] 13.5 g/dL 13.0-16.5 [facility] Immature granulocytes/100 WB C Auto (Bld)Ordered By: Renard Burgos on 06-10-2024 Immature granulocytes/100 WBC (Bld) 0.500 % 0.0-0.9 [facility] Comment on above: IG% - Immature Granu locytes (promyelocytes, myelocytes and metamyelocytes) > 1% indicates that a LEFT SHIFT is Present. Lymphocytes Auto (Unsp spec) [#/Vol]Ordered By: Renard Burgos on 06-10-2024 Lymphocytes (Bld) [#/Vol] 2.38 10*3/uL 0.83-4.51 [facility] Lymphocytes/100 WBC Auto (Un sp spec)Ordered By: Renard Burgos on 06-10-2024 Lymphocytes/100 WBC (Bld) 27.5 % 19-41 [facility] MCV (mean corpuscular volume ) determinationOrdered By: Renard Burgos on 06-10-2024 MCV (RBC) [Entitic vol] 91.7 fL 80-94 [facility] Mean corpuscular hemoglobin (MCH) determinationOrdered By: Renard Burgos on 06-10-2024 MCH (RBC) [Entitic mass] 30.1 pg 27.0-32.0 [facility] Mean corpuscular hemoglobin concentration (MCHC) determinationOrdered By: Renard Burgos on 06-10-2024 MCHC (RBC) [Mass/Vol] 32.8 g/dL 32-36 [facility] Mean platelet volume determi nationOrdered By: Renard Burgos on 06-10-2024 Platelet mean volume (Bld) [Entitic vol] 11.0 fL 6.2-12.0 [facility] Monocyte percentageOrdered B y: Renard Burgos on 06-10-2024 Monocytes/100 WBC (Bld) 9.6 % 0-10 [facility] Neutrophil percentageOrdered By: Renard Burgos on 06-10-2024 Neutrophils/100 WBC (Bld) 61.0 % 47-70 [facility] Nucleated red blood cell per centageOrdered By: Renard Burgos on 06-10-2024 Nucleated RBC/100 WBC (Bld) [Ratio] 0 % 0-5 [facility] Platelet countOrdered By: Garrick Bhatt on 06-10-2024 Platelets (Bld) [#/Vol] 261 10*3/uL 150-450 [facility] RBC Auto (Bld) [#/Vol]Ordere d By: Renard Burgos on 06-10-2024 RBC (Bld) [#/Vol] 4.48 10*6/uL Low 4.6-6.[address] [facility] Urine Cultureon 06-10-2024 URC Normal [facility] Comment on above: Performed By: #### M 100.2200, L400.0001 ####[facility] [address] [place], [place], [phone] White blood cell (WBC) count Ordered By: Renard Burgos on 06-10-2024 WBC (Bld) [#/Vol] 8.6 10*3/uL 4.4-11.0 [facility] Bilirubin Test strip Ql (U)O rdered By: Renard Burgos on 06-07-2024 Bilirubin Ql (U) Negative Negative [facility] CBC-Complete Blood Cnt No Di ffon 06-07-2024 Erythrocyte distribution width (RBC) [Ratio] 13.0 % Normal 11.6-14.6 [facility] Comment on above: Order Comment: 109-1 Performed By: #### L 100.0500 ####[facility] [address] [place], [address] Hematocrit (Bld) [Volume fraction] 39.3 % Low 40-54 [facility] Comment on above: Order Comment: 109-1 Performed By: #### L 100.0500 ####[facility] [address] [place], [address] Hemoglobin (Bld) [Mass/Vol] 13.0 g/dL Normal 13.0-16.5 [facility] Comment on above: Order Comment: 109-1 Performed By: #### L 100.0500 ####[facility] [address] [place], [address] MCH (RBC) [Entitic mass] 30.2 pg Normal 27.0-32.0 [facility] Comment on above: Order Comment: 109-1 Performed By: #### L 100.0500 ####[facility] [address] [place], [address] MCHC (RBC) [Mass/Vol] 33.1 g/dL Normal 32-36 [facility] Comment on above: Order Comment: 109-1 Performed By: #### L 100.0500 ####[facility] [address] [place], [address] MCV (RBC) [Entitic vol] 91.2 fL Normal 80-94 [facility] Comment on above: Order Comment: 109-1 Performed By: #### L 100.0500 ####[facility] [address] [place], [address] Platelet mean volume (Bld) [Entitic vol] 10.8 fL Normal 6.2-12.0 [facility] Comment on above: Order Comment: 109-1 Performed By: #### L 100.0500 ####[facility] [address] [place], [address] Platelets (Bld) [#/Vol] 251 10*3/uL Normal 150-450 [facility] Comment on above: Order Comment: 109-1 Performed By: #### L 100.0500 ####[facility] [address] [place], [address] RBC (Bld) [#/Vol] 4.31 10*6/uL Low 4.6-6.[address] [facility] Comment on above: Order Comment: 109-1 Performed By: #### L 100.0500 ####[facility] [address] [place], [address] RDW SD 43.7 fl Normal 35.1-43.9 [facility] Comment on above: Order Comment: 109-1 Performed By: #### L 100.0500 ####[facility] [address] [place], [address] WBC (Bld) [#/Vol] 9.9 10*3/uL Normal 4.4-11.0 [facility] Comment on above: Order Comment: 109-1 Performed By: #### L 100.0500 ####[facility] [address] [place], [address] Epithelial cells.squamous LM Ql (Urine sed)Ordered By: Renard Burgos on 06-07-2024 Epithelial cells.squamous LM.HPF (Urine sed) [#/Area] 0 /[HPF] 0-5 [facility] Erythrocyte distribution wid th ratioOrdered By: Renard Burgos on 06-07-2024 Erythrocyte distribution width (RBC) [Ratio] 13.0 % 11.6-14.6 [facility] Erythrocyte distribution wid th standard deviationOrdered By: Renard Burgos on 06-07-2024 Erythrocyte distribution width (RBC) [Entitic vol] 43.7 fL 35.1-43.9 [facility] Erythrocyte distribution width (RBC) [Ratio] 43.7 fl 35.1-43.9 [facility] Glucose Ql (U)Ordered By: Garrick Bhatt on 06-07-2024 Urine Glucose (UA) Normal mg/dl Normal [facility] Hematocrit Auto (Bld) [Volum e fraction]Ordered By: Renard Burgos on 06-07-2024 Hematocrit (Bld) [Volume fraction] 39.3 % Low 40-54 [facility] Hemoglobin measurementOrdere d By: Renard Burgos on 06-07-2024 Hemoglobin (Bld) [Mass/Vol] 13.0 g/dL 13.0-16.5 [facility] Ketones Test strip Ql (U)Ord ered By: Renard Burgos on 06-07-2024 Ketones Ql (U) Negative Negative [facility] MCV (mean corpuscular volume ) determinationOrdered By: Renard Burgos on 06-07-2024 MCV (RBC) [Entitic vol] 91.2 fL 80-94 [facility] Mean corpuscular hemoglobin (MCH) determinationOrdered By: Renard Burgos on 06-07-2024 MCH (RBC) [Entitic mass] 30.2 pg 27.0-32.0 [facility] Mean corpuscular hemoglobin concentration (MCHC) determinationOrdered By: Renard Burgos on 06-07-2024 MCHC (RBC) [Mass/Vol] 33.1 g/dL 32-36 [facility] Mean platelet volume determi nationOrdered By: Renard Burgos on 06-07-2024 Platelet mean volume (Bld) [Entitic vol] 10.8 fL 6.2-12.0 [facility] Microscopic analysis of urin e for red blood cells (RBC)Ordered By: Renard Burgos on 06-07-2024 Microscopic analysis of urine for red blood cells (RBC) 0 SEEN /hpf 0-5 [facility] Urine RBC 0 SEEN /hpf 0-5 [facility] Mucus LM Ql (Urine sed)Order ed By: Renard Burgos on 06-07-2024 Mucus Ql (Urine sed) 0 SEEN /hpf [facility] Nitrite Test strip Ql (U)Ord ered By: Renard Burgos on 06-07-2024 Nitrite Ql (U) Negative Negative [facility] Platelet countOrdered By: Garrick Bhatt on 06-07-2024 Platelets (Bld) [#/Vol] 251 10*3/uL 150-450 [facility] Protein Test strip Ql (U)Ord ered By: Renard Burgos on 06-07-2024 Protein Ql (U) 15 mg/dl High Negative [facility] RBC Auto (Bld) [#/Vol]Ordere d By: Renard Burgos on 06-07-2024 RBC (Bld) [#/Vol] 4.31 10*6/uL Low 4.6-6.[address] [facility] Squamous epithelial cells de tection in urine sediment by light microscopyOrdered By: Renard Burgos on 06-07-2024 Epithelial cells.squamous LM Ql (Urine sed) 0-5 SEEN /hpf 0-5 [facility] Urinalysis, Completeon 06-07 Mucus Ql (Urine sed) 0 SEEN Normal [facility] Comment on above: Order Comment: CLEAN CATCH Performed By: #### M 100.2200, L400.0001 ####[facility] [address] [place], [address] Urine blood detectionOrdered By: Renard Burgos on 06-07-2024 Urine Occult Blood Negative Negative [facility] Urine clarityOrdered By: Lyubov Burgos on 06-07-2024 Clarity (U) Clear Clear [facility] Urine color determinationOrd ered By: Renard Burgos on 06-07-2024 Color (U) Yellow Yellow [facility] Urine cultureOrdered By: Lyubov Burgos on 06-07-2024 Bacteria identified Cx Nom (U) Pseudomonas aeruginosa Abnormal [facility] Bacteria identified Cx Nom (U) Pseudomonas aeruginosa Abnormal [facility] Urine glucose detectionOrder ed By: Renard Burgos on 06-07-2024 Glucose Ql (U) Normal mg/dl Normal [facility] Urine leukocyte esterase det ection by dipstickOrdered By: Renard Burgos on 06-07-2024 Leukocyte esterase Test strip Ql (U) Negative Negative [facility] Urine pHOrdered By: Renard ocampo on 06-07-2024 pH (U) 7.0 [pH] 5.0 - 8.0 [facility] Urine sediment bacteria coun t by microscopy (number/high power field)Ordered By: Renard Burgos on 06-07-2024 Bacteria LM.HPF (Urine sed) [#/Area] 2 /[HPF] None Seen [facility] Urine sediment yeast count b y microscopy (number/high powered field)Ordered By: Renard Burgos on 06-07-2024 Yeast LM.HPF (Urine sed) [#/Area] 1 /[HPF] None Seen [facility] Urine specific gravity measu rementOrdered By: Renard Burgos on 06-07-2024 Specific gravity (U) [Rel density] 1.010 1.002-1.030 [facility] Urine urobilinogen measureme ntOrdered By: Renard Burgos on 06-07-2024 Urobilinogen Ql (U) 1 mg/dl High Normal [facility] Urobilinogen Ql (U)Ordered B y: Renard Burgos on 06-07-2024 Urobilinogen (U) [Mass/Vol] 1 mg/dL High Normal [facility] White blood cell (WBC) count Ordered By: Renard Burgos on 06-07-2024 WBC (Bld) [#/Vol] 9.9 10*3/uL 4.4-11.0 [facility] White blood cell countOrdere d By: Renard Burgos on 06-07-2024 Urine WBC 0-5 SEEN /hpf 0-5 [facility] White blood cell count 0-5 SEEN /hpf 0-5 [facility] Yeast LM.HPF (Urine sed) [#/ Area]Ordered By: Renard Burgos on 06-07-2024 Urine Yeast 1+ /hpf None Seen [facility] Absolute lymphocyte countOrd ered By: Renard Burgos on 06-03-2024 Lymphocytes Auto (Unsp spec) [#/Vol] 1.94 10*3/uL 0.83-4.51 [facility] Absolute neutrophil countOrd ered By: Renard Burgos on 06-03-2024 Neutrophils (Bld) [#/Vol] 9.5 10*3/uL High 2.0-7.7 [facility] Automated lymphocyte count a s percentage of total leukocytesOrdered By: Renard Burgos on 06-03-2024 Lymphocytes/100 WBC Auto (Unsp spec) 15.7 % Low 19-41 [facility] Basophil percentageOrdered B y: Renard Burgos on 06-03-2024 Basophils/100 WBC (Bld) 0.5 % 0-1 [facility] CBC W/Diff, Automatedon Absolute Lymph 1.94 X10 3/uL Normal 0.83-4.51 [facility] Comment on above: Order Comment: 109-1 Performed By: #### L 100.0100 ####[facility] [address] [place], [place], [address] Absolute Neut 9.5 X10 3/uL High 2.0-7.7 [facility] Comment on above: Order Comment: 109-1 Performed By: #### L 100.0100 ####[facility] [address] [place], [address] Basophils/100 WBC (Bld) 0.5 % Normal 0-1 [facility] Comment on above: Order Comment: 109-1 Performed By: #### L 100.0100 ####[facility] [address] [place], [address] Eosinophils/100 WBC (Bld) 0.3 % Normal 0-5 [facility] Comment on above: Order Comment: 109-1 Performed By: #### L 100.0100 ####[facility] [address] [place], [address] Erythrocyte distribution width (RBC) [Ratio] 13.0 % Normal 11.6-14.6 [facility] Comment on above: Order Comment: 109-1 Performed By: #### L 100.0100 ####[facility] [address] [place], [address] Hematocrit (Bld) [Volume fraction] 40.1 % Normal 40-54 [facility] Comment on above: Order Comment: 109-1 Performed By: #### L 100.0100 ####[facility] [address] [place], [address] Hemoglobin (Bld) [Mass/Vol] 13.2 g/dL Normal 13.0-16.5 [facility] Comment on above: Order Comment: 109-1 Performed By: #### L 100.0100 ####[facility] [address] [place], [address] IG% 0.400 Normal 0.0-0.9 [facility] Comment on above: Order Comment: 109-1 Result Comment: IG% - Immature Granulocytes (promyelocytes, myelocytes andmetamyelocytes) > 1% indicates that a LEFT SHIFT is Present. Performed By: #### L 100.0100 ####[facility] [address] [place], [address] Lymphocytes/100 WBC (Bld) 15.7 % Low 19-41 [facility] Comment on above: Order Comment: 109-1 Performed By: #### L 100.0100 ####[facility] [address] [place], [address] MCH (RBC) [Entitic mass] 30.1 pg Normal 27.0-32.0 [facility] Comment on above: Order Comment: 109-1 Performed By: #### L 100.0100 ####[facility] [address] [place], [address] MCHC (RBC) [Mass/Vol] 32.9 g/dL Normal 32-36 [facility] Comment on above: Order Comment: 109-1 Performed By: #### L 100.0100 ####[facility] [address] [place], [address] MCV (RBC) [Entitic vol] 91.3 fL Normal 80-94 [facility] Comment on above: Order Comment: 109-1 Performed By: #### L 100.0100 ####[facility] [address] [place], [address] Monocytes/100 WBC (Bld) 6.6 % Normal 0-10 [facility] Comment on above: Order Comment: 109-1 Performed By: #### L 100.0100 ####[facility] [address] [place], [address] Neutrophils/100 WBC (Bld) 76.5 % High 47-70 [facility] Comment on above: Order Comment: 109-1 Performed By: #### L 100.0100 ####[facility] [address] [place], [address] Nucleated RBC (Bld) [#/Vol] 0 10*3/uL Normal 0-5 [facility] Comment on above: Order Comment: 109-1 Performed By: #### L 100.0100 ####[facility] [address] [place], [address] Platelet mean volume (Bld) [Entitic vol] 11.1 fL Normal 6.2-12.0 [facility] Comment on above: Order Comment: 109-1 Performed By: #### L 100.0100 ####[facility] [address] [place], [address] Platelets (Bld) [#/Vol] 249 10*3/uL Normal 150-450 [facility] Comment on above: Order Comment: 109-1 Performed By: #### L 100.0100 ####[facility] [address] [place], [address] RBC (Bld) [#/Vol] 4.39 10*6/uL Low 4.6-6.[address] [facility] Comment on above: Order Comment: 109-1 Performed By: #### L 100.0100 ####[facility] [address] [place], [address] RDW SD 42.8 fl Normal 35.1-43.9 [facility] Comment on above: Order Comment: 109-1 Performed By: #### L 100.0100 ####[facility] [address] [place], [address] WBC (Bld) [#/Vol] 12.4 10*3/uL High 4.4-11.[address] [facility] Comment on above: Order Comment: 109-1 Performed By: #### L 100.0100 ####[facility] [address] [place], [address] Eosinophil percentageOrdered By: Renard Burgos on 06-03-2024 Eosinophils/100 WBC (Bld) 0.3 % 0-5 [facility] Erythrocyte distribution wid th ratioOrdered By: Renard Burgos on 06-03-2024 Erythrocyte distribution width (RBC) [Ratio] 13.0 % 11.6-14.6 [facility] Erythrocyte distribution wid th standard deviationOrdered By: Renard Burgos on 06-03-2024 Erythrocyte distribution width (RBC) [Entitic vol] 42.8 fL 35.1-43.9 [facility] Erythrocyte distribution width (RBC) [Ratio] 42.8 fl 35.1-43.9 [facility] Hematocrit Auto (Bld) [Volum e fraction]Ordered By: Renard Burgos on 06-03-2024 Hematocrit (Bld) [Volume fraction] 40.1 % 40-54 [facility] Hemoglobin measurementOrdere d By: Renard Burgos on 06-03-2024 Hemoglobin (Bld) [Mass/Vol] 13.2 g/dL 13.0-16.5 [facility] Immature granulocytes/100 WB C Auto (Bld)Ordered By: Renard Burgos on 06-03-2024 Immature granulocytes/100 WBC (Bld) 0.400 % 0.0-0.9 [facility] Comment on above: IG% - Immature Granu locytes (promyelocytes, myelocytes and metamyelocytes) > 1% indicates that a LEFT SHIFT is Present. Lymphocytes Auto (Unsp spec) [#/Vol]Ordered By: Renard Burgos on 06-03-2024 Lymphocytes (Bld) [#/Vol] 1.94 10*3/uL 0.83-4.51 [facility] Lymphocytes/100 WBC Auto (Un sp spec)Ordered By: Renard Burgos on 06-03-2024 Lymphocytes/100 WBC (Bld) 15.7 % Low 19-41 [facility] MCV (mean corpuscular volume ) determinationOrdered By: Renard Burgos on 06-03-2024 MCV (RBC) [Entitic vol] 91.3 fL 80-94 [facility] Mean corpuscular hemoglobin (MCH) determinationOrdered By: Renard Burgos on 06-03-2024 MCH (RBC) [Entitic mass] 30.1 pg 27.0-32.0 [facility] Mean corpuscular hemoglobin concentration (MCHC) determinationOrdered By: Renard Burgos on 06-03-2024 MCHC (RBC) [Mass/Vol] 32.9 g/dL 32-36 [facility] Mean platelet volume determi nationOrdered By: Reanrd Burgos on 06-03-2024 Platelet mean volume (Bld) [Entitic vol] 11.1 fL 6.2-12.0 [facility] Monocyte percentageOrdered B y: Renard Burgos on 06-03-2024 Monocytes/100 WBC (Bld) 6.6 % 0-10 [facility] Neutrophil percentageOrdered By: Renard Burgos on 06-03-2024 Neutrophils/100 WBC (Bld) 76.5 % High 47-70 [facility] Nucleated red blood cell per centageOrdered By: Renard Burgos on 06-03-2024 Nucleated RBC/100 WBC (Bld) [Ratio] 0 % 0-5 [facility] Platelet countOrdered By: Garrick Bhatt on 06-03-2024 Platelets (Bld) [#/Vol] 249 10*3/uL 150-450 [facility] RBC Auto (Bld) [#/Vol]Ordere d By: Renard Burgos on 06-03-2024 RBC (Bld) [#/Vol] 4.39 10*6/uL Low 4.6-6.[address] [facility] White blood cell (WBC) count Ordered By: Renard Burgos on 06-03-2024 WBC (Bld) [#/Vol] 12.4 10*3/uL High 4.4-11.[address] [facility] Absolute lymphocyte countOrd ered By: Renard Burgos on 05-27-2024 Lymphocytes Auto (Unsp spec) [#/Vol] 1.81 10*3/uL 0.83-4.51 [facility] Absolute neutrophil countOrd ered By: Renard Burgos on 05-27-2024 Neutrophils (Bld) [#/Vol] 5.0 10*3/uL 2.0-7.7 [facility] Automated lymphocyte count a s percentage of total leukocytesOrdered By: Renard Burgos on 05-27-2024 Lymphocytes/100 WBC Auto (Unsp spec) 24.4 % 19-41 [facility] Basophil percentageOrdered B y: Renard Burgos on 05-27-2024 Basophils/100 WBC (Bld) 0.5 % 0-1 [facility] CBC W/Diff, Automatedon 01-2 Absolute Lymph 1.81 X10 3/uL Normal 0.83-4.51 [facility] Comment on above: Order Comment: 109.1 Performed By: #### L 100.0100 ####[facility] [address] [place], [address] Absolute Neut 5.0 X10 3/uL Normal 2.0-7.7 [facility] Comment on above: Order Comment: 109.1 Performed By: #### L 100.0100 ####[facility] [address] [place], [address] Basophils/100 WBC (Bld) 0.5 % Normal 0-1 [facility] Comment on above: Order Comment: 109.1 Performed By: #### L 100.0100 ####[facility] [address] [place], [address] Eosinophils/100 WBC (Bld) 0.5 % Normal 0-5 [facility] Comment on above: Order Comment: 109.1 Performed By: #### L 100.0100 ####[facility] [address] [place], [address] Erythrocyte distribution width (RBC) [Ratio] 12.8 % Normal 11.6-14.6 [facility] Comment on above: Order Comment: 109.1 Performed By: #### L 100.0100 ####[facility] [address] [place], [address] Hematocrit (Bld) [Volume fraction] 39.8 % Low 40-54 [facility] Comment on above: Order Comment: 109.1 Performed By: #### L 100.0100 ####[facility] [address] [place], [address] Hemoglobin (Bld) [Mass/Vol] 13.2 g/dL Normal 13.0-16.5 [facility] Comment on above: Order Comment: 109.1 Performed By: #### L 100.0100 ####[facility] [address] [place], [address] IG% 0.400 Normal 0.0-0.9 [facility] Comment on above: Order Comment: 109.1 Result Comment: IG% - Immature Granulocytes (promyelocytes, myelocytes andmetamyelocytes) > 1% indicates that a LEFT SHIFT is Present. Performed By: #### L 100.0100 ####[facility] [address] [place], [address] Lymphocytes/100 WBC (Bld) 24.4 % Normal 19-41 [facility] Comment on above: Order Comment: 109.1 Performed By: #### L 100.0100 ####[facility] [address] [place], [address] MCH (RBC) [Entitic mass] 30.2 pg Normal 27.0-32.0 [facility] Comment on above: Order Comment: 109.1 Performed By: #### L 100.0100 ####[facility] [address] [place], [address] MCHC (RBC) [Mass/Vol] 33.2 g/dL Normal 32-36 [facility] Comment on above: Order Comment: 109.1 Performed By: #### L 100.0100 ####[facility] [address] [place], [address] MCV (RBC) [Entitic vol] 91.1 fL Normal 80-94 [facility] Comment on above: Order Comment: 109.1 Performed By: #### L 100.0100 ####[facility] [address] [place], [address] Monocytes/100 WBC (Bld) 7.0 % Normal 0-10 [facility] Comment on above: Order Comment: 109.1 Performed By: #### L 100.0100 ####[facility] [address] [place], [address] Neutrophils/100 WBC (Bld) 67.2 % Normal 47-70 [facility] Comment on above: Order Comment: 109.1 Performed By: #### L 100.0100 ####[facility] [address] [place], [address] Nucleated RBC (Bld) [#/Vol] 0 10*3/uL Normal 0-5 [facility] Comment on above: Order Comment: 109.1 Performed By: #### L 100.0100 ####[facility] [address] [place], [address] Platelet mean volume (Bld) [Entitic vol] 10.3 fL Normal 6.2-12.0 [facility] Comment on above: Order Comment: 109.1 Performed By: #### L 100.0100 ####[facility] [address] [place], [address] Platelets (Bld) [#/Vol] 239 10*3/uL Normal 150-450 [facility] Comment on above: Order Comment: 109.1 Performed By: #### L 100.0100 ####[facility] [address] [place], [address] RBC (Bld) [#/Vol] 4.37 10*6/uL Low 4.6-6.[address] [facility] Comment on above: Order Comment: 109.1 Performed By: #### L 100.0100 ####[facility] [address] [place], [address] RDW SD 42.5 fl Normal 35.1-43.9 [facility] Comment on above: Order Comment: 109.1 Performed By: #### L 100.0100 ####[facility] [address] [place], [address] WBC (Bld) [#/Vol] 7.4 10*3/uL Normal 4.4-11.0 [facility] Comment on above: Order Comment: 109.1 Performed By: #### L 100.0100 ####[facility] [address] [place], [address] Eosinophil percentageOrdered By: Renard Burgos on 05-27-2024 Eosinophils/100 WBC (Bld) 0.5 % 0-5 [facility] Erythrocyte distribution wid th ratioOrdered By: Renard Burgos on 05-27-2024 Erythrocyte distribution width (RBC) [Ratio] 12.8 % 11.6-14.6 [facility] Erythrocyte distribution wid th standard deviationOrdered By: Renard Burgos on 05-27-2024 Erythrocyte distribution width (RBC) [Entitic vol] 42.5 fL 35.1-43.9 [facility] Erythrocyte distribution width (RBC) [Ratio] 42.5 fl 35.1-43.9 [facility] Hematocrit Auto (Bld) [Volum e fraction]Ordered By: Renard Burgos on 05-27-2024 Hematocrit (Bld) [Volume fraction] 39.8 % Low 40-54 [facility] Hemoglobin measurementOrdere d By: Renard Burgos on 05-27-2024 Hemoglobin (Bld) [Mass/Vol] 13.2 g/dL 13.0-16.5 [facility] Immature granulocytes/100 WB C Auto (Bld)Ordered By: Renard Burgos on 05-27-2024 Immature granulocytes/100 WBC (Bld) 0.400 % 0.0-0.9 [facility] Comment on above: IG% - Immature Granu locytes (promyelocytes, myelocytes and metamyelocytes) > 1% indicates that a LEFT SHIFT is Present. Lymphocytes Auto (Unsp spec) [#/Vol]Ordered By: Renard Burgos on 05-27-2024 Lymphocytes (Bld) [#/Vol] 1.81 10*3/uL 0.83-4.51 [facility] Lymphocytes/100 WBC Auto (Un sp spec)Ordered By: Renard Burgos on 05-27-2024 Lymphocytes/100 WBC (Bld) 24.4 % 19-41 [facility] MCV (mean corpuscular volume ) determinationOrdered By: Renard Burgos on 05-27-2024 MCV (RBC) [Entitic vol] 91.1 fL 80-94 [facility] Mean corpuscular hemoglobin (MCH) determinationOrdered By: Renard Burgos on 05-27-2024 MCH (RBC) [Entitic mass] 30.2 pg 27.0-32.0 [facility] Mean corpuscular hemoglobin concentration (MCHC) determinationOrdered By: Renard Burgos on 05-27-2024 MCHC (RBC) [Mass/Vol] 33.2 g/dL 32-36 [facility] Mean platelet volume determi nationOrdered By: Renard Burgos on 05-27-2024 Platelet mean volume (Bld) [Entitic vol] 10.3 fL 6.2-12.0 [facility] Monocyte percentageOrdered B y: Renard Burgos on 05-27-2024 Monocytes/100 WBC (Bld) 7.0 % 0-10 [facility] Neutrophil percentageOrdered By: Renard Burgos on 05-27-2024 Neutrophils/100 WBC (Bld) 67.2 % 47-70 [facility] Nucleated red blood cell per centageOrdered By: Renard Burgos on 05-27-2024 Nucleated RBC/100 WBC (Bld) [Ratio] 0 % 0-5 [facility] Platelet countOrdered By: Garrick Bhatt on 05-27-2024 Platelets (Bld) [#/Vol] 239 10*3/uL 150-450 [facility] RBC Auto (Bld) [#/Vol]Ordere d By: Renard Burgos on 05-27-2024 RBC (Bld) [#/Vol] 4.37 10*6/uL Low 4.6-6.[address] [facility] White blood cell (WBC) count Ordered By: Renard Burgos on 05-27-2024 WBC (Bld) [#/Vol] 7.4 10*3/uL 4.4-11.0 [facility] Absolute lymphocyte countOrd ered By: Renard Burgos on 05-20-2024 Lymphocytes Auto (Unsp spec) [#/Vol] 1.73 10*3/uL 0.83-4.51 [facility] Absolute neutrophil countOrd ered By: Renard Burgos on 05-20-2024 Neutrophils (Bld) [#/Vol] 7.0 10*3/uL 2.0-7.7 [facility] Automated blood erythrocyte countOrdered By: Renard Burgos on 05-20-2024 RBC (Bld) [#/Vol] 4.74 10*6/uL Normal 4.6-6.[address] [facility] Comment on above: Order Comment: 109-1 Performed By: #### L 100.0100 ####[facility] [address] [place], [place], [id number](510) Automated blood hematocrit ( percentage)Ordered By: Renard Burgos on 05-20-2024 Hematocrit (Bld) [Volume fraction] 43.6 % Normal 40-54 [facility] Comment on above: Order Comment: 109-1 Performed By: #### L 100.0100 ####[facility] [address] [place], [address] Automated lymphocyte count a s percentage of total leukocytesOrdered By: Renard Burgos on 05-20-2024 Lymphocytes/100 WBC (Bld) 17.7 % Low - [facility] Comment on above: Order Comment: 109-1 Performed By: #### L 100.0100 ####[facility] [address] [place], [address] Lymphocytes/100 WBC Auto (Unsp spec) 17.7 % Low - [facility] Basophil percentageOrdered B y: Renard Burgos on 05-20-2024 Basophils/100 WBC (Bld) 0.5 % Normal 0-1 [facility] Comment on above: Order Comment: 109-1 Performed By: #### L 100.0100 ####[facility] [address] [place], [place], [phone](031) CBC W/Diff, Automatedon - Absolute Lymph 1.73 X10 3/uL Normal 0.83-4.51 [facility] Comment on above: Order Comment: 109-1 Performed By: #### L 100.0100 ####[facility] [address] [place], [address] Absolute Neut 7.0 X10 3/uL Normal 2.0-7.7 [facility] Comment on above: Order Comment: 109-1 Performed By: #### L 100.0100 ####[facility] [address] [place], [address] IG% 0.500 Normal 0.0-0.9 [facility] Comment on above: Order Comment: 109-1 Result Comment: IG% - Immature Granulocytes (promyelocytes, myelocytes andmetamyelocytes) > 1% indicates that a LEFT SHIFT is Present. Performed By: #### L 100.0100 ####[facility] [address] [place], [address] Nucleated RBC (Bld) [#/Vol] 0 10*3/uL Normal 0-5 [facility] Comment on above: Order Comment: 109-1 Performed By: #### L 100.0100 ####[facility] [address] [place], [address] RDW SD 42.5 fl Normal 35.1-43.9 [facility] Comment on above: Order Comment: 109-1 Performed By: #### L 100.0100 ####[facility] [address] [place], [address] Eosinophil percentageOrdered By: Renard Burgos on 05-20-2024 Eosinophils/100 WBC (Bld) 0.5 % Normal 0-5 [facility] Comment on above: Order Comment: 109-1 Performed By: #### L 100.0100 ####[facility] [address] [place], [address] Erythrocyte distribution wid th ratioOrdered By: Renard Burgos on 05-20-2024 Erythrocyte distribution width (RBC) [Ratio] 12.6 % Normal 11.6-14.6 [facility] Comment on above: Order Comment: 109-1 Performed By: #### L 100.0100 ####[facility] [address] [place], [place], [id number] Erythrocyte distribution wid th standard deviationOrdered By: Renard Burgos on 05-20-2024 Erythrocyte distribution width (RBC) [Entitic vol] 42.5 fL 35.1-43.9 [facility] Erythrocyte distribution width (RBC) [Ratio] 42.5 fl 35.1-43.9 [facility] Hemoglobin measurementOrdere d By: Renard Burgos on 05-20-2024 Hemoglobin (Bld) [Mass/Vol] 14.4 g/dL Normal 13.0-16.5 [facility] Comment on above: Order Comment: 109-1 Performed By: #### L 100.0100 ####[facility] [address] [place], [address] Immature granulocytes/100 WB C Auto (Bld)Ordered By: Renard Burgos on 05-20-2024 Immature granulocytes/100 WBC (Bld) 0.500 % 0.0-0.9 [facility] Comment on above: IG% - Immature Granu locytes (promyelocytes, myelocytes and metamyelocytes) > 1% indicates that a LEFT SHIFT is Present. Lymphocytes Auto (Unsp spec) [#/Vol]Ordered By: Renard Burgos on 05-20-2024 Lymphocytes (Bld) [#/Vol] 1.73 10*3/uL 0.83-4.51 [facility] MCV (mean corpuscular volume ) determinationOrdered By: Renard Burgos on 05-20-2024 MCV (RBC) [Entitic vol] 92.0 fL Normal 80-94 [facility] Comment on above: Order Comment: 109-1 Performed By: #### L 100.0100 ####[facility] [address] [place], [place], [address] Mean corpuscular hemoglobin (MCH) determinationOrdered By: Renard Burgos on 05-20-2024 MCH (RBC) [Entitic mass] 30.4 pg Normal 27.0-32.0 [facility] Comment on above: Order Comment: 109-1 Performed By: #### L 100.0100 ####[facility] [address] [place], [address] Mean corpuscular hemoglobin concentration (MCHC) determinationOrdered By: Renard Burgos on 05-20-2024 MCHC (RBC) [Mass/Vol] 33.0 g/dL Normal 32-36 [facility] Comment on above: Order Comment: 109-1 Performed By: #### L 100.0100 ####[facility] [address] [place], [address] Mean platelet volume determi nationOrdered By: Renard Burgos on 05-20-2024 Platelet mean volume (Bld) [Entitic vol] 10.7 fL Normal 6.2-12.0 [facility] Comment on above: Order Comment: 109-1 Performed By: #### L 100.0100 ####[facility] [address] [place], [address] Monocyte percentageOrdered B y: Renard Burgos on 05-20-2024 Monocytes/100 WBC (Bld) 9.4 % Normal 0-10 [facility] Comment on above: Order Comment: 109-1 Performed By: #### L 100.0100 ####[facility] [address] [place], [address] Neutrophil percentageOrdered By: Renard Burgos on 05-20-2024 Neutrophils/100 WBC (Bld) 71.4 % High 47-70 [facility] Comment on above: Order Comment: 109-1 Performed By: #### L 100.0100 ####[facility] [address] [place], [address] Nucleated red blood cell per centageOrdered By: Renard Burgos on 01-20-2025 Nucleated RBC/100 WBC (Bld) [Ratio] 0 % 0-5 [facility] Platelet countOrdered By: Garrick Bhatt on 05-20-2024 Platelets (Bld) [#/Vol] 239 10*3/uL Normal 150-450 [facility] Comment on above: Order Comment: 109-1 Performed By: #### L 100.0100 ####[facility] [address] [place], [place], [address] White blood cell (WBC) count Ordered By: Renard Burgos on 05-20-2024 WBC (Bld) [#/Vol] 9.8 10*3/uL Normal 4.4-11.0 [facility] Comment on above: Order Comment: 109-1 Performed By: #### L 100.0100 ####[facility] [address] [place], [address] Absolute lymphocyte countOrd ered By: Renard Burgos on 05-13-2024 Lymphocytes Auto (Unsp spec) [#/Vol] 2.10 10*3/uL 0.83-4.51 [facility] Absolute neutrophil countOrd ered By: Renard Burgos on 05-13-2024 Neutrophils (Bld) [#/Vol] 6.2 10*3/uL 2.0-7.7 [facility] Automated lymphocyte count a s percentage of total leukocytesOrdered By: Renard Burgos on 05-13-2024 Lymphocytes/100 WBC Auto (Unsp spec) 22.8 % 19-41 [facility] Basophil percentageOrdered B y: Renard Burgos on 05-13-2024 Basophils/100 WBC (Bld) 0.5 % 0-1 [facility] CBC W/Diff, Automatedon 05-01 Absolute Lymph 2.10 X10 3/uL Normal 0.83-4.51 [facility] Comment on above: Order Comment: 109 Performed By: #### L 100.0100 ####[facility] [address] [place], [address] Absolute Neut 6.2 X10 3/uL Normal 2.0-7.7 [facility] Comment on above: Order Comment: 109 Performed By: #### L 100.0100 ####[facility] [address] [place], [address] Basophils/100 WBC (Bld) 0.5 % Normal 0-1 [facility] Comment on above: Order Comment: 109 Performed By: #### L 100.0100 ####[facility] [address] [place], [address] Eosinophils/100 WBC (Bld) 0.5 % Normal 0-5 [facility] Comment on above: Order Comment: 109 Performed By: #### L 100.0100 ####[facility] [address] [place], [address] Erythrocyte distribution width (RBC) [Ratio] 12.9 % Normal 11.6-14.6 [facility] Comment on above: Order Comment: 109 Performed By: #### L 100.0100 ####[facility] [address] [place], [address] Hematocrit (Bld) [Volume fraction] 42.5 % Normal 40-54 [facility] Comment on above: Order Comment: 109 Performed By: #### L 100.0100 ####[facility] [address] [place], [address] Hemoglobin (Bld) [Mass/Vol] 14.2 g/dL Normal 13.0-16.5 [facility] Comment on above: Order Comment: 109 Performed By: #### L 100.0100 ####[facility] [address] [place], [address] IG% 0.300 Normal 0.0-0.9 [facility] Comment on above: Order Comment: 109 Result Comment: IG% - Immature Granulocytes (promyelocytes, myelocytes andmetamyelocytes) > 1% indicates that a LEFT SHIFT is Present. Performed By: #### L 100.0100 ####[facility] [address] [place], [address] Lymphocytes/100 WBC (Bld) 22.8 % Normal 19-41 [facility] Comment on above: Order Comment: 109 Performed By: #### L 100.0100 ####[facility] [address] [place], [address] MCH (RBC) [Entitic mass] 30.3 pg Normal 27.0-32.0 [facility] Comment on above: Order Comment: 109 Performed By: #### L 100.0100 ####[facility] [address] [place], [address] MCHC (RBC) [Mass/Vol] 33.4 g/dL Normal 32-36 [facility] Comment on above: Order Comment: 109 Performed By: #### L 100.0100 ####[facility] [address] [place], [address] MCV (RBC) [Entitic vol] 90.6 fL Normal 80-94 [facility] Comment on above: Order Comment: 109 Performed By: #### L 100.0100 ####[facility] [address] [place], [address] Monocytes/100 WBC (Bld) 8.7 % Normal 0-10 [facility] Comment on above: Order Comment: 109 Performed By: #### L 100.0100 ####[facility] [address] [place], [address] Neutrophils/100 WBC (Bld) 67.2 % Normal 47-70 [facility] Comment on above: Order Comment: 109 Performed By: #### L 100.0100 ####[facility] [address] [place], [address] Nucleated RBC (Bld) [#/Vol] 0 10*3/uL Normal 0-5 [facility] Comment on above: Order Comment: 109 Performed By: #### L 100.0100 ####[facility] [address] [place], [address] Platelet mean volume (Bld) [Entitic vol] 11.1 fL Normal 6.2-12.0 [facility] Comment on above: Order Comment: 109 Performed By: #### L 100.0100 ####[facility] [address] [place], [address] Platelets (Bld) [#/Vol] 218 10*3/uL Normal 150-450 [facility] Comment on above: Order Comment: 109 Performed By: #### L 100.0100 ####[facility] [address] [place], [address] RBC (Bld) [#/Vol] 4.69 10*6/uL Normal 4.6-6.[address] [facility] Comment on above: Order Comment: 109 Performed By: #### L 100.0100 ####[facility] [address] [place], [address] RDW SD 42.3 fl Normal 35.1-43.9 [facility] Comment on above: Order Comment: 109 Performed By: #### L 100.0100 ####[facility] [address] [place], [address] WBC (Bld) [#/Vol] 9.2 10*3/uL Normal 4.4-11.0 [facility] Comment on above: Order Comment: 109 Performed By: #### L 100.0100 ####[facility] [address] [place], [address] Eosinophil percentageOrdered By: Renard Burgos on 05-13-2024 Eosinophils/100 WBC (Bld) 0.5 % 0-5 [facility] Erythrocyte distribution wid th ratioOrdered By: Renard Burgos on 05-13-2024 Erythrocyte distribution width (RBC) [Ratio] 12.9 % 11.6-14.6 [facility] Erythrocyte distribution wid th standard deviationOrdered By: Renard Burgos on 05-13-2024 Erythrocyte distribution width (RBC) [Entitic vol] 42.3 fL 35.1-43.9 [facility] Erythrocyte distribution width (RBC) [Ratio] 42.3 fl 35.1-43.9 [facility] Hematocrit Auto (Bld) [Volum e fraction]Ordered By: Renard Burgos on 05-13-2024 Hematocrit (Bld) [Volume fraction] 42.5 % 40-54 [facility] Hemoglobin measurementOrdere d By: Renard Burgos on 05-13-2024 Hemoglobin (Bld) [Mass/Vol] 14.2 g/dL 13.0-16.5 [facility] Immature granulocytes/100 WB C Auto (Bld)Ordered By: Renard Burgos on 05-13-2024 Immature granulocytes/100 WBC (Bld) 0.300 % 0.0-0.9 [facility] Comment on above: IG% - Immature Granu locytes (promyelocytes, myelocytes and metamyelocytes) > 1% indicates that a LEFT SHIFT is Present. Lymphocytes Auto (Unsp spec) [#/Vol]Ordered By: Renard Burgos on 05-13-2024 Lymphocytes (Bld) [#/Vol] 2.10 10*3/uL 0.83-4.51 [facility] Lymphocytes/100 WBC Auto (Un sp spec)Ordered By: Renard Burgos on 05-13-2024 Lymphocytes/100 WBC (Bld) 22.8 % 19-41 [facility] MCV (mean corpuscular volume ) determinationOrdered By: Renard Burgos on 05-13-2024 MCV (RBC) [Entitic vol] 90.6 fL 80-94 [facility] Mean corpuscular hemoglobin (MCH) determinationOrdered By: Renard Burgos on 05-13-2024 MCH (RBC) [Entitic mass] 30.3 pg 27.0-32.0 [facility] Mean corpuscular hemoglobin concentration (MCHC) determinationOrdered By: Renard Burgos on 05-13-2024 MCHC (RBC) [Mass/Vol] 33.4 g/dL 32-36 [facility] Mean platelet volume determi nationOrdered By: Renard Burgos on 05-13-2024 Platelet mean volume (Bld) [Entitic vol] 11.1 fL 6.2-12.0 [facility] Monocyte percentageOrdered B y: Renard Burgos on 05-13-2024 Monocytes/100 WBC (Bld) 8.7 % 0-10 [facility] Neutrophil percentageOrdered By: Renard Burgos on 05-13-2024 Neutrophils/100 WBC (Bld) 67.2 % 47-70 [facility] Nucleated red blood cell per centageOrdered By: Renard Burgos on 05-13-2024 Nucleated RBC/100 WBC (Bld) [Ratio] 0 % 0-5 [facility] Platelet countOrdered By: Garrick Bhatt on 05-13-2024 Platelets (Bld) [#/Vol] 218 10*3/uL 150-450 [facility] RBC Auto (Bld) [#/Vol]Ordere d By: Renard Burgos on 05-13-2024 RBC (Bld) [#/Vol] 4.69 10*6/uL 4.6-6.[address] [facility] White blood cell (WBC) count Ordered By: Renard Burgos on 05-13-2024 WBC (Bld) [#/Vol] 9.2 10*3/uL 4.4-11.0 [facility] Absolute neutrophil countOrd ered By: Renard Burgos on 05-06-2024 Neutrophils (Bld) [#/Vol] 5.9 10*3/uL 2.0-7.7 [facility] Automated blood erythrocyte countOrdered By: Renard Burgos on 05-06-2024 RBC (Bld) [#/Vol] 4.85 10*6/uL Normal 4.6-6.[address] [facility] Comment on above: Order Comment: 109-1 Performed By: #### L 100.0100 ####[facility] [address] [place], [address] Automated blood hematocrit ( percentage)Ordered By: Renard Burgos on 05-06-2024 Hematocrit (Bld) [Volume fraction] 45.0 % Normal 40-54 [facility] Comment on above: Order Comment: 109-1 Performed By: #### L 100.0100 ####[facility] [address] [place], [address] Automated lymphocyte count a s percentage of total leukocytesOrdered By: Renard Burgos on 05-06-2024 Lymphocytes/100 WBC (Bld) 24.4 % Normal 19-41 [facility] Comment on above: Order Comment: 109-1 Performed By: #### L 100.0100 ####[facility] [address] [place], [address] Basophil percentageOrdered B y: Renard Burgos on 05-06-2024 Basophils/100 WBC (Bld) 0.5 % Normal 0-1 [facility] Comment on above: Order Comment: 109-1 Performed By: #### L 100.0100 ####[facility] [address] [place], [address] CBC W/Diff, Automatedon 01-0 Absolute Lymph 2.22 X10 3/uL Normal 0.83-4.51 [facility] Comment on above: Order Comment: 109-1 Performed By: #### L 100.0100 ####[facility] [address] [place], [address] Absolute Neut 5.9 X10 3/uL Normal 2.0-7.7 [facility] Comment on above: Order Comment: 109-1 Performed By: #### L 100.0100 ####[facility] [address] [place], [address] IG% 0.500 Normal 0.0-0.9 [facility] Comment on above: Order Comment: 109-1 Result Comment: IG% - Immature Granulocytes (promyelocytes, myelocytes andmetamyelocytes) > 1% indicates that a LEFT SHIFT is Present. Performed By: #### L 100.0100 ####[facility] [address] [place], [address] Nucleated RBC (Bld) [#/Vol] 0 10*3/uL Normal 0-5 [facility] Comment on above: Order Comment: 109-1 Performed By: #### L 100.0100 ####[facility] [address] [place], [address] RDW SD 43.9 fl Normal 35.1-43.9 [facility] Comment on above: Order Comment: 109-1 Performed By: #### L 100.0100 ####[facility] [address] [place], [address] Eosinophil percentageOrdered By: Renard Burgos on 05-06-2024 Eosinophils/100 WBC (Bld) 0.4 % Normal 0-5 [facility] Comment on above: Order Comment: 109-1 Performed By: #### L 100.0100 ####[facility] [address] [place], [address] Erythrocyte distribution wid th ratioOrdered By: Renard Burgos on 05-06-2024 Erythrocyte distribution width (RBC) [Ratio] 13.0 % Normal 11.6-14.6 [facility] Comment on above: Order Comment: 109-1 Performed By: #### L 100.0100 ####[facility] [address] [place], [address] Erythrocyte distribution wid th standard deviationOrdered By: Renard Burgos on 05-06-2024 Erythrocyte distribution width (RBC) [Entitic vol] 43.9 fL 35.1-43.9 [facility] Hemoglobin measurementOrdere d By: Renard Burgos on 05-06-2024 Hemoglobin (Bld) [Mass/Vol] 14.5 g/dL Normal 13.0-16.5 [facility] Comment on above: Order Comment: 109-1 Performed By: #### L 100.0100 ####[facility] [address] [place], [address] Immature granulocytes/100 WB C Auto (Bld)Ordered By: Renard Burgos on 05-06-2024 Immature granulocytes/100 WBC (Bld) 0.500 % 0.0-0.9 [facility] Comment on above: IG% - Immature Granu locytes (promyelocytes, myelocytes and metamyelocytes) > 1% indicates that a LEFT SHIFT is Present. Lymphocytes Auto (Unsp spec) [#/Vol]Ordered By: Renard Burgos on 05-06-2024 Lymphocytes (Bld) [#/Vol] 2.22 10*3/uL 0.83-4.51 [facility] MCV (mean corpuscular volume ) determinationOrdered By: Renard Burgos on 05-06-2024 MCV (RBC) [Entitic vol] 92.8 fL Normal 80-94 [facility] Comment on above: Order Comment: 109-1 Performed By: #### L 100.0100 ####[facility] [address] [facility] [address] [place], [place], [id number]) Mean corpuscular hemoglobin (MCH) determinationOrdered By: Renard Burgos on 05-06-2024 MCH (RBC) [Entitic mass] 29.9 pg Normal 27.0-32.0 [facility] Comment on above: Order Comment: 109-1 Performed By: #### L 100.0100 ####[facility] [address] [place], [address] Mean corpuscular hemoglobin concentration (MCHC) determinationOrdered By: Renard Burgos on 05-06-2024 MCHC (RBC) [Mass/Vol] 32.2 g/dL Normal 32-36 [facility] Comment on above: Order Comment: 109-1 Performed By: #### L 100.0100 ####[facility] [address] [facility] [place], [address] Mean platelet volume determi nationOrdered By: Renard Burgos on 05-06-2024 Platelet mean volume (Bld) [Entitic vol] 11.4 fL Normal 6.2-12.0 [facility] Comment on above: Order Comment: 109-1 Performed By: #### L 100.0100 ####[facility] [address] [place], [address] Monocyte percentageOrdered B y: Renard Burgos on 05-06-2024 Monocytes/100 WBC (Bld) 9.7 % Normal 0-10 [facility] Comment on above: Order Comment: 109-1 Performed By: #### L 100.0100 ####[facility] [address] [place], [address] Neutrophil percentageOrdered By: Renard Burgos on 05-06-2024 Neutrophils/100 WBC (Bld) 64.5 % Normal 47-70 [facility] Comment on above: Order Comment: 109-1 Performed By: #### L 100.0100 ####[facility] [address] [place], [address] Nucleated red blood cell per centageOrdered By: Renard Burgos on 05-06-2024 Nucleated RBC/100 WBC (Bld) [Ratio] 0 % 0-5 [facility] Platelet countOrdered By: Garrick Bhatt on 05-06-2024 Platelets (Bld) [#/Vol] 201 10*3/uL Normal 150-450 [facility] Comment on above: Order Comment: 109-1 Performed By: #### L 100.0100 ####[facility] [address] [place], [address] White blood cell (WBC) count Ordered By: Renard Burgos on 05-06-2024 WBC (Bld) [#/Vol] 9.1 10*3/uL Normal 4.4-11.0 [facility] Comment on above: Order Comment: 109-1 Performed By: #### L 100.0100 ####[facility] [address] [place], [address] 36on 05-03-2024 36 Gissel is calling to let Dr. Burgos know that the medication he prescribed he not certified, she is going to fax the information to the office. [phone] Normal [facility] Absolute neutrophil countOrd ered By: Renard Burgos on 04-29-2024 Neutrophils (Bld) [#/Vol] 6.3 10*3/uL 2.0-7.7 [facility] Basophil percentageOrdered B y: Renard Burgos on 04-29-2024 Basophils/100 WBC (Bld) 0.4 % 0-1 [facility] CBC W/Diff, Automatedon - 0-2023 Absolute Lymph 2.11 X10 3/uL Normal 0.83-4.51 [facility] Comment on above: Order Comment: 109.1 Performed By: #### L 100.0100 ####[facility] [address] [place], [address] Absolute Neut 6.3 X10 3/uL Normal 2.0-7.7 [facility] Comment on above: Order Comment: 109.1 Performed By: #### L 100.0100 ####[facility] [address] [place], [address] Basophils/100 WBC (Bld) 0.4 % Normal 0-1 [facility] Comment on above: Order Comment: 109.1 Performed By: #### L 100.0100 ####[facility] [address] [place], [address] Eosinophils/100 WBC (Bld) 0.4 % Normal 0-5 [facility] Comment on above: Order Comment: 109.1 Performed By: #### L 100.0100 ####[facility] [address] [place], [address] Erythrocyte distribution width (RBC) [Ratio] 12.6 % Normal 11.6-14.6 [facility] Comment on above: Order Comment: 109.1 Performed By: #### L 100.0100 ####[facility] [address] [place], [address] Hematocrit (Bld) [Volume fraction] 41.6 % Normal 40-54 [facility] Comment on above: Order Comment: 109.1 Performed By: #### L 100.0100 ####[facility] [address] [place], [address] Hemoglobin (Bld) [Mass/Vol] 13.7 g/dL Normal 13.0-16.5 [facility] Comment on above: Order Comment: 109.1 Performed By: #### L 100.0100 ####[facility] [address] [place], [address] IG% 0.400 Normal 0.0-0.9 [facility] Comment on above: Order Comment: 109.1 Result Comment: IG% - Immature Granulocytes (promyelocytes, myelocytes andmetamyelocytes) > 1% indicates that a LEFT SHIFT is Present. Performed By: #### L 100.0100 ####[facility] [address] [place], [address] Lymphocytes/100 WBC (Bld) 22.6 % Normal 19-41 [facility] Comment on above: Order Comment: 109.1 Performed By: #### L 100.0100 ####[facility] [address] [place], [address] MCH (RBC) [Entitic mass] 30.1 pg Normal 27.0-32.0 [facility] Comment on above: Order Comment: 109.1 Performed By: #### L 100.0100 ####[facility] [address] [place], [address] MCHC (RBC) [Mass/Vol] 32.9 g/dL Normal 32-36 [facility] Comment on above: Order Comment: 109.1 Performed By: #### L 100.0100 ####[facility] [address] [place], [address] MCV (RBC) [Entitic vol] 91.4 fL Normal 80-94 [facility] Comment on above: Order Comment: 109.1 Performed By: #### L 100.0100 ####[facility] [address] [place], [address] Monocytes/100 WBC (Bld) 9.3 % Normal 0-10 [facility] Comment on above: Order Comment: 109.1 Performed By: #### L 100.0100 ####[facility] [address] [place], [address] Neutrophils/100 WBC (Bld) 66.9 % Normal 47-70 [facility] Comment on above: Order Comment: 109.1 Performed By: #### L 100.0100 ####[facility] [address] [place], [address] Nucleated RBC (Bld) [#/Vol] 0 10*3/uL Normal 0-5 [facility] Comment on above: Order Comment: 109.1 Performed By: #### L 100.0100 ####[facility] [address] [place], [address] Platelet mean volume (Bld) [Entitic vol] 11.0 fL Normal 6.2-12.0 [facility] Comment on above: Order Comment: 109.1 Performed By: #### L 100.0100 ####[facility] [address] [place], [address] Platelets (Bld) [#/Vol] 211 10*3/uL Normal 150-450 [facility] Comment on above: Order Comment: 109.1 Performed By: #### L 100.0100 ####[facility] [address] [place], [address] RBC (Bld) [#/Vol] 4.55 10*6/uL Low 4.6-6.[address] [facility] Comment on above: Order Comment: 109.1 Performed By: #### L 100.0100 ####[facility] [address] [place], [address] RDW SD 41.5 fl Normal 35.1-43.9 [facility] Comment on above: Order Comment: 109.1 Performed By: #### L 100.0100 ####[facility] [address] [place], [address] WBC (Bld) [#/Vol] 9.4 10*3/uL Normal 4.4-11.0 [facility] Comment on above: Order Comment: 109.1 Performed By: #### L 100.0100 ####[facility] [address] [place], [address] Eosinophil percentageOrdered By: Renard Burgos on 04-29-2024 Eosinophils/100 WBC (Bld) 0.4 % 0-5 [facility] Erythrocyte distribution wid th ratioOrdered By: Renard Burgos on 04-29-2024 Erythrocyte distribution width (RBC) [Ratio] 12.6 % 11.6-14.6 [facility] Erythrocyte distribution wid th standard deviationOrdered By: Renard Burgos on 04-29-2024 Erythrocyte distribution width (RBC) [Entitic vol] 41.5 fL 35.1-43.9 [facility] Hematocrit Auto (Bld) [Volum e fraction]Ordered By: Renard Burgos on 04-29-2024 Hematocrit (Bld) [Volume fraction] 41.6 % 40-54 [facility] Hemoglobin measurementOrdere d By: Renard Burgos on 04-29-2024 Hemoglobin (Bld) [Mass/Vol] 13.7 g/dL 13.0-16.5 [facility] Immature granulocytes/100 WB C Auto (Bld)Ordered By: Renard Burgos on 04-29-2024 Immature granulocytes/100 WBC (Bld) 0.400 % 0.0-0.9 [facility] Comment on above: IG% - Immature Granu locytes (promyelocytes, myelocytes and metamyelocytes) > 1% indicates that a LEFT SHIFT is Present. Lymphocytes Auto (Unsp spec) [#/Vol]Ordered By: Renard Burgos on 04-29-2024 Lymphocytes (Bld) [#/Vol] 2.11 10*3/uL 0.83-4.51 [facility] Lymphocytes/100 WBC Auto (Un sp spec)Ordered By: Renard Burgos on 04-29-2024 Lymphocytes/100 WBC (Bld) 22.6 % 19-41 [facility] MCV (mean corpuscular volume ) determinationOrdered By: Renard Burgos on 04-29-2024 MCV (RBC) [Entitic vol] 91.4 fL 80-94 [facility] Mean corpuscular hemoglobin (MCH) determinationOrdered By: Renard Burgos on 04-29-2024 MCH (RBC) [Entitic mass] 30.1 pg 27.0-32.0 [facility] Mean corpuscular hemoglobin concentration (MCHC) determinationOrdered By: Renard Burgos on 04-29-2024 MCHC (RBC) [Mass/Vol] 32.9 g/dL 32-36 [facility] Mean platelet volume determi nationOrdered By: Renard Burgos on 04-29-2024 Platelet mean volume (Bld) [Entitic vol] 11.0 fL 6.2-12.0 [facility] Monocyte percentageOrdered B y: Renard Burgos on 04-29-2024 Monocytes/100 WBC (Bld) 9.3 % 0-10 [facility] Neutrophil percentageOrdered By: Renard Burgos on 04-29-2024 Neutrophils/100 WBC (Bld) 66.9 % 47-70 [facility] Nucleated red blood cell per centageOrdered By: Renard Burgos on 04-29-2024 Nucleated RBC/100 WBC (Bld) [Ratio] 0 % 0-5 [facility] Platelet countOrdered By: Garrick Bhatt on 04-29-2024 Platelets (Bld) [#/Vol] 211 10*3/uL 150-450 [facility] RBC Auto (Bld) [#/Vol]Ordere d By: Renard Burgos on 04-29-2024 RBC (Bld) [#/Vol] 4.55 10*6/uL Low 4.6-6.[address] [facility] White blood cell (WBC) count Ordered By: Renard Burgos on 04-29-2024 WBC (Bld) [#/Vol] 9.4 10*3/uL 4.4-11.0 [facility] Absolute neutrophil countOrd ered By: Renard Hensleydiego on 04-22-2024 Neutrophils (Bld) [#/Vol] 8.1 10*3/uL High 2.0-7.7 [facility] Basophil percentageOrdered B y: Renard Burgos on 04-22-2024 Basophils/100 WBC (Bld) 0.5 % 0-1 [facility] CBC W/Diff, Automatedon 04-01 Absolute Lymph 2.61 X10 3/uL Normal 0.83-4.51 [facility] Comment on above: Order Comment: 109-1 Performed By: #### L 100.0100 ####[facility] [address] [place], [address] Absolute Neut 8.1 X10 3/uL High 2.0-7.7 [facility] Comment on above: Order Comment: 109-1 Performed By: #### L 100.0100 ####[facility] [address] [place], [address] Basophils/100 WBC (Bld) 0.5 % Normal 0-1 [facility] Comment on above: Order Comment: 109-1 Performed By: #### L 100.0100 ####[facility] [address] [place], [address] Eosinophils/100 WBC (Bld) 0.4 % Normal 0-5 [facility] Comment on above: Order Comment: 109-1 Performed By: #### L 100.0100 ####[facility] [address] [place], [address] Erythrocyte distribution width (RBC) [Ratio] 12.6 % Normal 11.6-14.6 [facility] Comment on above: Order Comment: 109-1 Performed By: #### L 100.0100 ####[facility] [address] [place], [address] Hematocrit (Bld) [Volume fraction] 44.5 % Normal 40-54 [facility] Comment on above: Order Comment: 109-1 Performed By: #### L 100.0100 ####[facility] [address] [place], [address] Hemoglobin (Bld) [Mass/Vol] 14.3 g/dL Normal 13.0-16.5 [facility] Comment on above: Order Comment: 109-1 Performed By: #### L 100.0100 ####[facility] [address] [place], [address] IG% 0.300 Normal 0.0-0.9 [facility] Comment on above: Order Comment: 109-1 Result Comment: IG% - Immature Granulocytes (promyelocytes, myelocytes andmetamyelocytes) > 1% indicates that a LEFT SHIFT is Present. Performed By: #### L 100.0100 ####[facility] [address] [place], [address] Lymphocytes/100 WBC (Bld) 22.0 % Normal 19-41 [facility] Comment on above: Order Comment: 109-1 Performed By: #### L 100.0100 ####[facility] [address] [place], [address] MCH (RBC) [Entitic mass] 29.7 pg Normal 27.0-32.0 [facility] Comment on above: Order Comment: 109-1 Performed By: #### L 100.0100 ####[facility] [address] [place], [address] MCHC (RBC) [Mass/Vol] 32.1 g/dL Normal 32-36 [facility] Comment on above: Order Comment: 109-1 Performed By: #### L 100.0100 ####[facility] [address] [place], [address] MCV (RBC) [Entitic vol] 92.5 fL Normal 80-94 [facility] Comment on above: Order Comment: 109-1 Performed By: #### L 100.0100 ####[facility] [address] [place], [address] Monocytes/100 WBC (Bld) 8.3 % Normal 0-10 [facility] Comment on above: Order Comment: 109-1 Performed By: #### L 100.0100 ####[facility] [address] [place], [address] Neutrophils/100 WBC (Bld) 68.5 % Normal 47-70 [facility] Comment on above: Order Comment: 109-1 Performed By: #### L 100.0100 ####[facility] [address] [place], [address] Nucleated RBC (Bld) [#/Vol] 0 10*3/uL Normal 0-5 [facility] Comment on above: Order Comment: 109-1 Performed By: #### L 100.0100 ####[facility] [address] [place], [address] Platelet mean volume (Bld) [Entitic vol] 11.0 fL Normal 6.2-12.0 [facility] Comment on above: Order Comment: 109-1 Performed By: #### L 100.0100 ####[facility] [address] [place], [address] Platelets (Bld) [#/Vol] 190 10*3/uL Normal 150-450 [facility] Comment on above: Order Comment: 109-1 Performed By: #### L 100.0100 ####[facility] [address] [place], [address] RBC (Bld) [#/Vol] 4.81 10*6/uL Normal 4.6-6.[address] [facility] Comment on above: Order Comment: 109-1 Performed By: #### L 100.0100 ####[facility] [address] [place], [address] RDW SD 43.0 fl Normal 35.1-43.9 [facility] Comment on above: Order Comment: 109-1 Performed By: #### L 100.0100 ####[facility] [address] [place], [address] WBC (Bld) [#/Vol] 11.9 10*3/uL High 4.4-11.[address] [facility] Comment on above: Order Comment: 109-1 Performed By: #### L 100.0100 ####[facility] [address] [place], [address] Eosinophil percentageOrdered By: Renard Burgos on 04-22-2024 Eosinophils/100 WBC (Bld) 0.4 % 0-5 [facility] Erythrocyte distribution wid th ratioOrdered By: Renard Burgos on 04-22-2024 Erythrocyte distribution width (RBC) [Ratio] 12.6 % 11.6-14.6 [facility] Erythrocyte distribution wid th standard deviationOrdered By: Renard Burgos on 04-22-2024 Erythrocyte distribution width (RBC) [Entitic vol] 43.0 fL 35.1-43.9 [facility] Hematocrit Auto (Bld) [Volum e fraction]Ordered By: Renard Burgos on 04-22-2024 Hematocrit (Bld) [Volume fraction] 44.5 % 40-54 [facility] Hemoglobin measurementOrdere d By: Renard Burgos on 04-22-2024 Hemoglobin (Bld) [Mass/Vol] 14.3 g/dL 13.0-16.5 [facility] Immature granulocytes/100 WB C Auto (Bld)Ordered By: Renard Burgos on 04-22-2024 Immature granulocytes/100 WBC (Bld) 0.300 % 0.0-0.9 [facility] Comment on above: IG% - Immature Granu locytes (promyelocytes, myelocytes and metamyelocytes) > 1% indicates that a LEFT SHIFT is Present. Lymphocytes Auto (Unsp spec) [#/Vol]Ordered By: Renard Burgos on 04-22-2024 Lymphocytes (Bld) [#/Vol] 2.61 10*3/uL 0.83-4.51 [facility] Lymphocytes/100 WBC Auto (Un sp spec)Ordered By: Renard Burgos on 04-22-2024 Lymphocytes/100 WBC (Bld) 22.0 % 19-41 [facility] MCV (mean corpuscular volume ) determinationOrdered By: Renard Burgos on 04-22-2024 MCV (RBC) [Entitic vol] 92.5 fL 80-94 [facility] Mean corpuscular hemoglobin (MCH) determinationOrdered By: Renard Burgos on 04-22-2024 MCH (RBC) [Entitic mass] 29.7 pg 27.0-32.0 [facility] Mean corpuscular hemoglobin concentration (MCHC) determinationOrdered By: Renard Burgos on 04-22-2024 MCHC (RBC) [Mass/Vol] 32.1 g/dL 32-36 [facility] Mean platelet volume determi nationOrdered By: Renard Burgos on 04-22-2024 Platelet mean volume (Bld) [Entitic vol] 11.0 fL 6.2-12.0 [facility] Monocyte percentageOrdered B y: Renard Burgos on 04-22-2024 Monocytes/100 WBC (Bld) 8.3 % 0-10 [facility] Neutrophil percentageOrdered By: Renard Burgos on 04-22-2024 Neutrophils/100 WBC (Bld) 68.5 % 47-70 [facility] Nucleated red blood cell per centageOrdered By: Renard Burgos on 04-22-2024 Nucleated RBC/100 WBC (Bld) [Ratio] 0 % 0-5 [facility] Platelet countOrdered By: Garrick Bhatt on 04-22-2024 Platelets (Bld) [#/Vol] 190 10*3/uL 150-450 [facility] RBC Auto (Bld) [#/Vol]Ordere d By: Renard Burgos on 04-22-2024 RBC (Bld) [#/Vol] 4.81 10*6/uL 4.6-6.[address] [facility] White blood cell (WBC) count Ordered By: Renard Burgos on 04-22-2024 WBC (Bld) [#/Vol] 11.9 10*3/uL High 4.4-11.[address] [facility] Absolute neutrophil countOrd ered By: Renard Burgos on 04-15-2024 Neutrophils (Bld) [#/Vol] 8.7 10*3/uL High 2.0-7.7 [facility] Basophil percentageOrdered B y: Renard Burgos on 04-15-2024 Basophils/100 WBC (Bld) 0.3 % 0-1 [facility] Bilirubin, totalOrdered By: Renard Burgos on 04-15-2024 Bilirubin [Mass/Vol] 0.30 mg/dL 0.20-1.00 [facility] Comment on above: For patients on eltr ombopag therapy, use of Dimension [place] TBIL is not recommended. Bilirubin.direct [Mass/Vol]O rdered By: Renard Burgos on 04-15-2024 Direct Bilirubin < 0.05 mg/dL 0.00-0.30 [facility] CBC W/Diff, Automatedon 03-31 Absolute Lymph 1.93 X10 3/uL Normal 0.83-4.51 [facility] Comment on above: Order Comment: 109-1 Performed By: #### L 100.0100, L500.3400 ####[facility] [address] [place], [address] Absolute Neut 8.7 X10 3/uL High 2.0-7.7 [facility] Comment on above: Order Comment: 109-1 Performed By: #### L 100.0100, L500.3400 ####[facility] [address] [place], [address] Basophils/100 WBC (Bld) 0.3 % Normal 0-1 [facility] Comment on above: Order Comment: 109-1 Performed By: #### L 100.0100, L500.3400 ####[facility] [address] [place], [address] Eosinophils/100 WBC (Bld) 0.4 % Normal 0-5 [facility] Comment on above: Order Comment: 109-1 Performed By: #### L 100.0100, L500.3400 ####[facility] [address] [place], [address] Erythrocyte distribution width (RBC) [Ratio] 12.8 % Normal 11.6-14.6 [facility] Comment on above: Order Comment: 109-1 Performed By: #### L 100.0100, L500.3400 ####[facility] [address] [place], [address] Hematocrit (Bld) [Volume fraction] 42.5 % Normal 40-54 [facility] Comment on above: Order Comment: 109-1 Performed By: #### L 100.0100, L500.3400 ####[facility] [address] [place], [address] Hemoglobin (Bld) [Mass/Vol] 13.7 g/dL Normal 13.0-16.5 [facility] Comment on above: Order Comment: 109-1 Performed By: #### L 100.0100, L500.3400 ####[facility] [address] [place], [address] IG% 0.400 Normal 0.0-0.9 [facility] Comment on above: Order Comment: 109-1 Result Comment: IG% - Immature Granulocytes (promyelocytes, myelocytes andmetamyelocytes) > 1% indicates that a LEFT SHIFT is Present. Performed By: #### L 100.0100, L500.3400 ####[facility] [address] [place], [address] Lymphocytes/100 WBC (Bld) 16.9 % Low 19-41 [facility] Comment on above: Order Comment: 109-1 Performed By: #### L 100.0100, L500.3400 ####[facility] [address] [place], [address] MCH (RBC) [Entitic mass] 29.5 pg Normal 27.0-32.0 [facility] Comment on above: Order Comment: 109-1 Performed By: #### L 100.0100, L500.3400 ####[facility] [address] [place], [address] MCHC (RBC) [Mass/Vol] 32.2 g/dL Normal 32-36 [facility] Comment on above: Order Comment: 109-1 Performed By: #### L 100.0100, L500.3400 ####[facility] [address] [place], [address] MCV (RBC) [Entitic vol] 91.6 fL Normal 80-94 [facility] Comment on above: Order Comment: 109-1 Performed By: #### L 100.0100, L500.3400 ####[facility] [address] [place], [address] Monocytes/100 WBC (Bld) 6.0 % Normal 0-10 [facility] Comment on above: Order Comment: 109-1 Performed By: #### L 100.0100, L500.3400 ####[facility] [address] [place], [address] Neutrophils/100 WBC (Bld) 76.0 % High 47-70 [facility] Comment on above: Order Comment: 109-1 Performed By: #### L 100.0100, L500.3400 ####[facility] [address] [place], [address] Nucleated RBC (Bld) [#/Vol] 0 10*3/uL Normal 0-5 [facility] Comment on above: Order Comment: 109-1 Performed By: #### L 100.0100, L500.3400 ####[facility] [address] [place], [address] Platelet mean volume (Bld) [Entitic vol] 11.1 fL Normal 6.2-12.0 [facility] Comment on above: Order Comment: 109-1 Performed By: #### L 100.0100, L500.3400 ####[facility] [address] [place], [address] Platelets (Bld) [#/Vol] 197 10*3/uL Normal 150-450 [facility] Comment on above: Order Comment: 109-1 Performed By: #### L 100.0100, L500.3400 ####[facility] [address] [place], [address] RBC (Bld) [#/Vol] 4.64 10*6/uL Normal 4.6-6.[address] [facility] Comment on above: Order Comment: 109-1 Performed By: #### L 100.0100, L500.3400 ####[facility] [address] [place], [address] RDW SD 42.5 fl Normal 35.1-43.9 [facility] Comment on above: Order Comment: 109-1 Performed By: #### L 100.0100, L500.3400 ####[facility] [address] [place], [address] WBC (Bld) [#/Vol] 11.4 10*3/uL High 4.4-11.[address] [facility] Comment on above: Order Comment: 109-1 Performed By: #### L 100.0100, L500.3400 ####[facility] [address] [place], [address] Eosinophil percentageOrdered By: Renard Burgos on 04-15-2024 Eosinophils/100 WBC (Bld) 0.4 % 0-5 [facility] Erythrocyte distribution wid th ratioOrdered By: Renard Burgos on 04-15-2024 Erythrocyte distribution width (RBC) [Ratio] 12.8 % 11.6-14.6 [facility] Erythrocyte distribution wid th standard deviationOrdered By: Renard Burgos on 04-15-2024 Erythrocyte distribution width (RBC) [Entitic vol] 42.5 fL 35.1-43.9 [facility] Hematocrit Auto (Bld) [Volum e fraction]Ordered By: Renard Burgos on 04-15-2024 Hematocrit (Bld) [Volume fraction] 42.5 % 40-54 [facility] Hemoglobin measurementOrdere d By: Renard Burgos on 04-15-2024 Hemoglobin (Bld) [Mass/Vol] 13.7 g/dL 13.0-16.5 [facility] Immature granulocytes/100 WB C Auto (Bld)Ordered By: Renard Burgos on 04-15-2024 Immature granulocytes/100 WBC (Bld) 0.400 % 0.0-0.9 [facility] Comment on above: IG% - Immature Granu locytes (promyelocytes, myelocytes and metamyelocytes) > 1% indicates that a LEFT SHIFT is Present. Laboratory - Chemistry and C hemistry - challengeOrdered By: Reanrd Burgos on 04-15-2024 AST [Catalytic activity/Vol] 18 U/L 15-37 [facility] Comment on above: Slight Hemolysis, Re sult may be falsely increased. Liver Profileon 04-15-2024 Albumin [Mass/Vol] 2.9 g/dL Low 3.2-5.0 [facility] Comment on above: Order Comment: 109-1 Performed By: #### L 100.0100, L500.3400 ####[facility] [address] [place], [place], [id number] ALK P 126 U/L High 45-117 [facility] Comment on above: Order Comment: 109-1 Performed By: #### L 100.0100, L500.3400 ####[facility] [address] [place], [address] ALT [Catalytic activity/Vol] 21 U/L Normal 16-61 [facility] Comment on above: Order Comment: 109-1 Performed By: #### L 100.0100, L500.3400 ####[facility] [address] [place], [address] AST [Catalytic activity/Vol] 18 U/L Normal 15-37 [facility] Comment on above: Order Comment: 109-1 Result Comment: Slig ht Hemolysis, Result may be falsely increased. Performed By: #### L 100.0100, L500.3400 ####[facility] [address] [place], [address] Bilirubin [Mass/Vol] 0.30 mg/dL Normal 0.20-1.00 [facility] Comment on above: Order Comment: 109-1 Result Comment: For patients on eltrombopag therapy, use of Dimension [place] TBIL is not recommended. Performed By: #### L 100.0100, L500.3400 ####[facility] [address] [place], [address] D BILI < 0.05 Normal 0.00-0.30 [facility] Comment on above: Order Comment: 109-1 Performed By: #### L 100.0100, L500.3400 ####[facility] [address] [place], [address] Globulin (S) [Mass/Vol] 3.0 g/dL Normal 2.2-4.2 [facility] Comment on above: Order Comment: 109-1 Performed By: #### L 100.0100, L500.3400 ####[facility] [address] [place], [address] T PROT 5.9 g/dL Low 6.4-8.2 [facility] Comment on above: Order Comment: 109-1 Performed By: #### L 100.0100, L500.3400 ####[facility] [address] [place], [address] Lymphocytes Auto (Unsp spec) [#/Vol]Ordered By: Renard Burgos on 04-15-2024 Lymphocytes (Bld) [#/Vol] 1.93 10*3/uL 0.83-4.51 [facility] Lymphocytes/100 WBC Auto (Un sp spec)Ordered By: Renard Burgos on 04-15-2024 Lymphocytes/100 WBC (Bld) 16.9 % Low 19-41 [facility] MCV (mean corpuscular volume ) determinationOrdered By: Renard Burgos on 04-15-2024 MCV (RBC) [Entitic vol] 91.6 fL 80-94 [facility] Mean corpuscular hemoglobin (MCH) determinationOrdered By: Renard Burgos on 04-15-2024 MCH (RBC) [Entitic mass] 29.5 pg 27.0-32.0 [facility] Mean corpuscular hemoglobin concentration (MCHC) determinationOrdered By: Renard Burgos on 04-15-2024 MCHC (RBC) [Mass/Vol] 32.2 g/dL 32-36 [facility] Mean platelet volume determi nationOrdered By: Renard Burgos on 04-15-2024 Platelet mean volume (Bld) [Entitic vol] 11.1 fL 6.2-12.0 [facility] Monocyte percentageOrdered B y: Renard Burgos on 04-15-2024 Monocytes/100 WBC (Bld) 6.0 % 0-10 [facility] Neutrophil percentageOrdered By: Renard Burgos on 04-15-2024 Neutrophils/100 WBC (Bld) 76.0 % High 47-70 [facility] Nucleated red blood cell per centageOrdered By: Renard Burgos on 04-15-2024 Nucleated RBC/100 WBC (Bld) [Ratio] 0 % 0-5 [facility] Platelet countOrdered By: Garrick Bhatt on 04-15-2024 Platelets (Bld) [#/Vol] 197 10*3/uL 150-450 [facility] RBC Auto (Bld) [#/Vol]Ordere d By: Renard Burgos on 04-15-2024 RBC (Bld) [#/Vol] 4.64 10*6/uL 4.6-6.[address] [facility] Serum globulin measurementOr dered By: Renard Burgos on 04-15-2024 Globulin (S) [Mass/Vol] 3.0 g/dL 2.2-4.2 [facility] Serum or plasma alanine kay otransferase (ALT) measurementOrdered By: Renard Burgos on 04-15-2024 ALT [Catalytic activity/Vol] 21 U/L 16-61 [facility] Serum or plasma albumin gordy urement (mass/volume)Ordered By: Renard Burgos on 04-15-2024 Albumin [Mass/Vol] 2.9 g/dL Low 3.2-5.0 [facility] Serum or plasma alkaline trace sphatase measurementOrdered By: Renard Burgos on 04-15-2024 ALP [Catalytic activity/Vol] 126 U/L High 45-117 [facility] Total proteinOrdered By: Lyubov Burgos on 04-15-2024 Protein [Mass/Vol] 5.9 g/dL Low 6.4-8.2 [facility] White blood cell (WBC) count Ordered By: Renard Burgos on 04-15-2024 WBC (Bld) [#/Vol] 11.4 10*3/uL High 4.4-11.[address] [facility] Absolute neutrophil countOrd ered By: Renard Burgos on 04-08-2024 Neutrophils (Bld) [#/Vol] 5.7 10*3/uL 2.0-7.7 [facility] Basophil percentageOrdered B y: Renrad Burgos on 04-08-2024 Basophils/100 WBC (Bld) 0.6 % 0-1 [facility] CBC W/Diff, Automatedon Absolute Lymph 2.27 X10 3/uL Normal 0.83-4.51 [facility] Comment on above: Order Comment: 109.1 Performed By: #### L 100.0100 ####[facility] [address] [place], [place], [address] Absolute Neut 5.7 X10 3/uL Normal 2.0-7.7 [facility] Comment on above: Order Comment: 109.1 Performed By: #### L 100.0100 ####[facility] [address] [place], [address] Basophils/100 WBC (Bld) 0.6 % Normal 0-1 [facility] Comment on above: Order Comment: 109.1 Performed By: #### L 100.0100 ####[facility] [address] [place], [address] Eosinophils/100 WBC (Bld) 0.5 % Normal 0-5 [facility] Comment on above: Order Comment: 109.1 Performed By: #### L 100.0100 ####[facility] [address] [place], [address] Erythrocyte distribution width (RBC) [Ratio] 12.6 % Normal 11.6-14.6 [facility] Comment on above: Order Comment: 109.1 Performed By: #### L 100.0100 ####[facility] [address] [place], [address] Hematocrit (Bld) [Volume fraction] 41.2 % Normal 40-54 [facility] Comment on above: Order Comment: 109.1 Performed By: #### L 100.0100 ####[facility] [address] [place], [address] Hemoglobin (Bld) [Mass/Vol] 13.3 g/dL Normal 13.0-16.5 [facility] Comment on above: Order Comment: 109.1 Performed By: #### L 100.0100 ####[facility] [address] [place], [address] IG% 0.200 Normal 0.0-0.9 [facility] Comment on above: Order Comment: 109.1 Result Comment: IG% - Immature Granulocytes (promyelocytes, myelocytes andmetamyelocytes) > 1% indicates that a LEFT SHIFT is Present. Performed By: #### L 100.0100 ####[facility] [address] [place], [address] Lymphocytes/100 WBC (Bld) 26.0 % Normal 19-41 [facility] Comment on above: Order Comment: 109.1 Performed By: #### L 100.0100 ####[facility] [address] [place], [address] MCH (RBC) [Entitic mass] 29.6 pg Normal 27.0-32.0 [facility] Comment on above: Order Comment: 109.1 Performed By: #### L 100.0100 ####[facility] [address] [place], [address] MCHC (RBC) [Mass/Vol] 32.3 g/dL Normal 32-36 [facility] Comment on above: Order Comment: 109.1 Performed By: #### L 100.0100 ####[facility] [address] [place], [address] MCV (RBC) [Entitic vol] 91.8 fL Normal 80-94 [facility] Comment on above: Order Comment: 109.1 Performed By: #### L 100.0100 ####[facility] [address] [place], [address] Monocytes/100 WBC (Bld) 7.8 % Normal 0-10 [facility] Comment on above: Order Comment: 109.1 Performed By: #### L 100.0100 ####[facility] [address] [place], [address] Neutrophils/100 WBC (Bld) 64.9 % Normal 47-70 [facility] Comment on above: Order Comment: 109.1 Performed By: #### L 100.0100 ####[facility] [address] [place], [address] Nucleated RBC (Bld) [#/Vol] 0 10*3/uL Normal 0-5 [facility] Comment on above: Order Comment: 109.1 Performed By: #### L 100.0100 ####[facility] [address] [place], [address] Platelet mean volume (Bld) [Entitic vol] 10.8 fL Normal 6.2-12.0 [facility] Comment on above: Order Comment: 109.1 Performed By: #### L 100.0100 ####[facility] [address] [place], [address] Platelets (Bld) [#/Vol] 208 10*3/uL Normal 150-450 [facility] Comment on above: Order Comment: 109.1 Performed By: #### L 100.0100 ####[facility] [address] [place], [address] RBC (Bld) [#/Vol] 4.49 10*6/uL Low 4.6-6.[address] [facility] Comment on above: Order Comment: 109.1 Performed By: #### L 100.0100 ####[facility] [address] [place], [address] RDW SD 42.4 fl Normal 35.1-43.9 [facility] Comment on above: Order Comment: 109.1 Performed By: #### L 100.0100 ####[facility] [address] [place], [address] WBC (Bld) [#/Vol] 8.7 10*3/uL Normal 4.4-11.0 [facility] Comment on above: Order Comment: 109.1 Performed By: #### L 100.0100 ####[facility] [address] [place], [address] Eosinophil percentageOrdered By: Renard Burgos on 04-08-2024 Eosinophils/100 WBC (Bld) 0.5 % 0-5 [facility] Erythrocyte distribution wid th ratioOrdered By: Renard Burgos on 04-08-2024 Erythrocyte distribution width (RBC) [Ratio] 12.6 % 11.6-14.6 [facility] Erythrocyte distribution wid th standard deviationOrdered By: Renard Burgos on 04-08-2024 Erythrocyte distribution width (RBC) [Entitic vol] 42.4 fL 35.1-43.9 [facility] Hematocrit Auto (Bld) [Volum e fraction]Ordered By: Renard Burgos on 04-08-2024 Hematocrit (Bld) [Volume fraction] 41.2 % 40-54 [facility] Hemoglobin measurementOrdere d By: Renard Burgos on 04-08-2024 Hemoglobin (Bld) [Mass/Vol] 13.3 g/dL 13.0-16.5 [facility] Immature granulocytes/100 WB C Auto (Bld)Ordered By: Renard Burgos on 04-08-2024 Immature granulocytes/100 WBC (Bld) 0.200 % 0.0-0.9 [facility] Comment on above: IG% - Immature Granu locytes (promyelocytes, myelocytes and metamyelocytes) > 1% indicates that a LEFT SHIFT is Present. Lymphocytes Auto (Unsp spec) [#/Vol]Ordered By: Renard Burgos on 04-08-2024 Lymphocytes (Bld) [#/Vol] 2.27 10*3/uL 0.83-4.51 [facility] Lymphocytes/100 WBC Auto (Un sp spec)Ordered By: Renard Burgos on 04-08-2024 Lymphocytes/100 WBC (Bld) 26.0 % 19-41 [facility] MCV (mean corpuscular volume ) determinationOrdered By: Renard Burgos on 04-08-2024 MCV (RBC) [Entitic vol] 91.8 fL 80-94 [facility] Mean corpuscular hemoglobin (MCH) determinationOrdered By: Renard Burgos on 04-08-2024 MCH (RBC) [Entitic mass] 29.6 pg 27.0-32.0 [facility] Mean corpuscular hemoglobin concentration (MCHC) determinationOrdered By: Renard Burgos on 04-08-2024 MCHC (RBC) [Mass/Vol] 32.3 g/dL 32-36 [facility] Mean platelet volume determi nationOrdered By: Renard Burgos on 04-08-2024 Platelet mean volume (Bld) [Entitic vol] 10.8 fL 6.2-12.0 [facility] Monocyte percentageOrdered B y: Renard Burgos on 04-08-2024 Monocytes/100 WBC (Bld) 7.8 % 0-10 [facility] Neutrophil percentageOrdered By: Renard Burgos on 04-08-2024 Neutrophils/100 WBC (Bld) 64.9 % 47-70 [facility] Nucleated red blood cell per centageOrdered By: Renard Burgos on 04-08-2024 Nucleated RBC/100 WBC (Bld) [Ratio] 0 % 0-5 [facility] Platelet countOrdered By: Garrick Bhatt on 04-08-2024 Platelets (Bld) [#/Vol] 208 10*3/uL 150-450 [facility] RBC Auto (Bld) [#/Vol]Ordere d By: Renard Burgos on 04-08-2024 RBC (Bld) [#/Vol] 4.49 10*6/uL Low 4.6-6.[address] [facility] White blood cell (WBC) count Ordered By: Renard Burgos on 04-08-2024 WBC (Bld) [#/Vol] 8.7 10*3/uL 4.4-11.0 [facility] Absolute neutrophil countOrd ered By: Renard Burgos on 04-01-2024 Neutrophils (Bld) [#/Vol] 7.1 10*3/uL 2.0-7.7 [facility] Basophil percentageOrdered B y: Renard Burgos on 04-01-2024 Basophils/100 WBC (Bld) 0.4 % 0-1 [facility] CBC W/Diff, Automatedon Absolute Lymph 1.97 X10 3/uL Normal 0.83-4.51 [facility] Comment on above: Order Comment: 109-1 Performed By: #### L 100.0100 ####[facility] [address] [place], [address] Absolute Neut 7.1 X10 3/uL Normal 2.0-7.7 [facility] Comment on above: Order Comment: 109-1 Performed By: #### L 100.0100 ####[facility] [address] [place], [address] Basophils/100 WBC (Bld) 0.4 % Normal 0-1 [facility] Comment on above: Order Comment: 109-1 Performed By: #### L 100.0100 ####[facility] [address] [place], [address] Eosinophils/100 WBC (Bld) 0.4 % Normal 0-5 [facility] Comment on above: Order Comment: 109-1 Performed By: #### L 100.0100 ####[facility] [address] [place], [address] Erythrocyte distribution width (RBC) [Ratio] 12.6 % Normal 11.6-14.6 [facility] Comment on above: Order Comment: 109-1 Performed By: #### L 100.0100 ####[facility] [address] [place], [address] Hematocrit (Bld) [Volume fraction] 41.7 % Normal 40-54 [facility] Comment on above: Order Comment: 109-1 Performed By: #### L 100.0100 ####[facility] [address] [place], [address] Hemoglobin (Bld) [Mass/Vol] 13.6 g/dL Normal 13.0-16.5 [facility] Comment on above: Order Comment: 109-1 Performed By: #### L 100.0100 ####[facility] [address] [place], [address] IG% 0.300 Normal 0.0-0.9 [facility] Comment on above: Order Comment: 109-1 Result Comment: IG% - Immature Granulocytes (promyelocytes, myelocytes andmetamyelocytes) > 1% indicates that a LEFT SHIFT is Present. Performed By: #### L 100.0100 ####[facility] [address] [place], [address] Lymphocytes/100 WBC (Bld) 20.0 % Normal 19-41 [facility] Comment on above: Order Comment: 109-1 Performed By: #### L 100.0100 ####[facility] [address] [place], [address] MCH (RBC) [Entitic mass] 29.7 pg Normal 27.0-32.0 [facility] Comment on above: Order Comment: 109-1 Performed By: #### L 100.0100 ####[facility] [address] [place], [address] MCHC (RBC) [Mass/Vol] 32.6 g/dL Normal 32-36 [facility] Comment on above: Order Comment: 109-1 Performed By: #### L 100.0100 ####[facility] [address] [place], [address] MCV (RBC) [Entitic vol] 91.0 fL Normal 80-94 [facility] Comment on above: Order Comment: 109-1 Performed By: #### L 100.0100 ####[facility] [address] [place], [address] Monocytes/100 WBC (Bld) 7.1 % Normal 0-10 [facility] Comment on above: Order Comment: 109-1 Performed By: #### L 100.0100 ####[facility] [address] [place], [address] Neutrophils/100 WBC (Bld) 71.8 % High 47-70 [facility] Comment on above: Order Comment: 109-1 Performed By: #### L 100.0100 ####[facility] [address] [place], [address] Nucleated RBC (Bld) [#/Vol] 0 10*3/uL Normal 0-5 [facility] Comment on above: Order Comment: 109-1 Performed By: #### L 100.0100 ####[facility] [address] [place], [address] Platelet mean volume (Bld) [Entitic vol] 11.3 fL Normal 6.2-12.0 [facility] Comment on above: Order Comment: 109-1 Performed By: #### L 100.0100 ####[facility] [address] [place], [address] Platelets (Bld) [#/Vol] 195 10*3/uL Normal 150-450 [facility] Comment on above: Order Comment: 109-1 Performed By: #### L 100.0100 ####[facility] [address] [place], [address] RBC (Bld) [#/Vol] 4.58 10*6/uL Low 4.6-6.[address] [facility] Comment on above: Order Comment: 109-1 Performed By: #### L 100.0100 ####[facility] [address] [place], [address] RDW SD 41.2 fl Normal 35.1-43.9 [facility] Comment on above: Order Comment: 109-1 Performed By: #### L 100.0100 ####[facility] [address] [place], [address] WBC (Bld) [#/Vol] 9.8 10*3/uL Normal 4.4-11.0 [facility] Comment on above: Order Comment: 109-1 Performed By: #### L 100.0100 ####[facility] [address] [place], [address] Eosinophil percentageOrdered By: Renard Burgos on 04-01-2024 Eosinophils/100 WBC (Bld) 0.4 % 0-5 [facility] Erythrocyte distribution wid th ratioOrdered By: Renard Burgos on 04-01-2024 Erythrocyte distribution width (RBC) [Ratio] 12.6 % 11.6-14.6 [facility] Erythrocyte distribution wid th standard deviationOrdered By: Renard Burgos on 04-01-2024 Erythrocyte distribution width (RBC) [Entitic vol] 41.2 fL 35.1-43.9 [facility] Hematocrit Auto (Bld) [Volum e fraction]Ordered By: Renard Burgos on 04-01-2024 Hematocrit (Bld) [Volume fraction] 41.7 % 40-54 [facility] Hemoglobin measurementOrdere d By: Renard Burgos on 04-01-2024 Hemoglobin (Bld) [Mass/Vol] 13.6 g/dL 13.0-16.5 [facility] Immature granulocytes/100 WB C Auto (Bld)Ordered By: Renard Burgos on 04-01-2024 Immature granulocytes/100 WBC (Bld) 0.300 % 0.0-0.9 [facility] Comment on above: IG% - Immature Granu locytes (promyelocytes, myelocytes and metamyelocytes) > 1% indicates that a LEFT SHIFT is Present. Lymphocytes Auto (Unsp spec) [#/Vol]Ordered By: Renard Burgos on 04-01-2024 Lymphocytes (Bld) [#/Vol] 1.97 10*3/uL 0.83-4.51 [facility] Lymphocytes/100 WBC Auto (Un sp spec)Ordered By: Renard Burgos on 04-01-2024 Lymphocytes/100 WBC (Bld) 20.0 % 19-41 [facility] MCV (mean corpuscular volume ) determinationOrdered By: Renard Burgos on 04-01-2024 MCV (RBC) [Entitic vol] 91.0 fL 80-94 [facility] Mean corpuscular hemoglobin (MCH) determinationOrdered By: Renard Burgos on 04-01-2024 MCH (RBC) [Entitic mass] 29.7 pg 27.0-32.0 [facility] Mean corpuscular hemoglobin concentration (MCHC) determinationOrdered By: Renard Burgos on 04-01-2024 MCHC (RBC) [Mass/Vol] 32.6 g/dL 32-36 [facility] Mean platelet volume determi nationOrdered By: Renard Burgos on 04-01-2024 Platelet mean volume (Bld) [Entitic vol] 11.3 fL 6.2-12.0 [facility] Monocyte percentageOrdered B y: Renard Burgos on 04-01-2024 Monocytes/100 WBC (Bld) 7.1 % 0-10 [facility] Neutrophil percentageOrdered By: Renard Burgos on 04-01-2024 Neutrophils/100 WBC (Bld) 71.8 % High 47-70 [facility] Nucleated red blood cell per centageOrdered By: Renard Burgos on 04-01-2024 Nucleated RBC/100 WBC (Bld) [Ratio] 0 % 0-5 [facility] Platelet countOrdered By: Garrick Bhatt on 04-01-2024 Platelets (Bld) [#/Vol] 195 10*3/uL 150-450 [facility] RBC Auto (Bld) [#/Vol]Ordere d By: Renard Burgos on 04-01-2024 RBC (Bld) [#/Vol] 4.58 10*6/uL Low 4.6-6.[address] [facility] White blood cell (WBC) count Ordered By: Renard Burgos on 04-01-2024 WBC (Bld) [#/Vol] 9.8 10*3/uL 4.4-11.0 [facility] Absolute neutrophil countOrd ered By: Renard Burgos on 03-25-2024 Neutrophils (Bld) [#/Vol] 5.4 10*3/uL 2.0-7.7 [facility] Basophil percentageOrdered B y: Renard Burgos on 03-25-2024 Basophils/100 WBC (Bld) 0.5 % 0-1 [facility] CBC W/Diff, Automatedon 03-02 Absolute Lymph 2.14 X10 3/uL Normal 0.83-4.51 [facility] Comment on above: Order Comment: 109-1 Performed By: #### L 100.0100 ####[facility] [address] [place], [address] Absolute Neut 5.4 X10 3/uL Normal 2.0-7.7 [facility] Comment on above: Order Comment: 109-1 Performed By: #### L 100.0100 ####[facility] [address] [place], [address] Basophils/100 WBC (Bld) 0.5 % Normal 0-1 [facility] Comment on above: Order Comment: 109-1 Performed By: #### L 100.0100 ####[facility] [address] [place], [address] Eosinophils/100 WBC (Bld) 0.7 % Normal 0-5 [facility] Comment on above: Order Comment: 109-1 Performed By: #### L 100.0100 ####[facility] [address] [place], [address] Erythrocyte distribution width (RBC) [Ratio] 12.7 % Normal 11.6-14.6 [facility] Comment on above: Order Comment: 109-1 Performed By: #### L 100.0100 ####[facility] [address] [place], [address] Hematocrit (Bld) [Volume fraction] 42.3 % Normal 40-54 [facility] Comment on above: Order Comment: 109-1 Performed By: #### L 100.0100 ####[facility] [address] [place], [address] Hemoglobin (Bld) [Mass/Vol] 13.7 g/dL Normal 13.0-16.5 [facility] Comment on above: Order Comment: 109-1 Performed By: #### L 100.0100 ####[facility] [address] [place], [address] IG% 0.500 Normal 0.0-0.9 [facility] Comment on above: Order Comment: 109-1 Result Comment: IG% - Immature Granulocytes (promyelocytes, myelocytes andmetamyelocytes) > 1% indicates that a LEFT SHIFT is Present. Performed By: #### L 100.0100 ####[facility] [address] [place], [address] Lymphocytes/100 WBC (Bld) 25.8 % Normal 19-41 [facility] Comment on above: Order Comment: 109-1 Performed By: #### L 100.0100 ####[facility] [address] [place], [address] MCH (RBC) [Entitic mass] 29.2 pg Normal 27.0-32.0 [facility] Comment on above: Order Comment: 109-1 Performed By: #### L 100.0100 ####[facility] [address] [place], [address] MCHC (RBC) [Mass/Vol] 32.4 g/dL Normal 32-36 [facility] Comment on above: Order Comment: 109-1 Performed By: #### L 100.0100 ####[facility] [address] [place], [address] MCV (RBC) [Entitic vol] 90.2 fL Normal 80-94 [facility] Comment on above: Order Comment: 109-1 Performed By: #### L 100.0100 ####[facility] [address] [place], [address] Monocytes/100 WBC (Bld) 8.0 % Normal 0-10 [facility] Comment on above: Order Comment: 109-1 Performed By: #### L 100.0100 ####[facility] [address] [place], [address] Neutrophils/100 WBC (Bld) 64.5 % Normal 47-70 [facility] Comment on above: Order Comment: 109-1 Performed By: #### L 100.0100 ####[facility] [address] [place], [address] Nucleated RBC (Bld) [#/Vol] 0 10*3/uL Normal 0-5 [facility] Comment on above: Order Comment: 109-1 Performed By: #### L 100.0100 ####[facility] [address] [place], [address] Platelet mean volume (Bld) [Entitic vol] 11.2 fL Normal 6.2-12.0 [facility] Comment on above: Order Comment: 109-1 Performed By: #### L 100.0100 ####[facility] [address] [place], [address] Platelets (Bld) [#/Vol] 204 10*3/uL Normal 150-450 [facility] Comment on above: Order Comment: 109-1 Performed By: #### L 100.0100 ####[facility] [address] [place], [address] RBC (Bld) [#/Vol] 4.69 10*6/uL Normal 4.6-6.[address] [facility] Comment on above: Order Comment: 109-1 Performed By: #### L 100.0100 ####[facility] [address] [place], [address] RDW SD 41.8 fl Normal 35.1-43.9 [facility] Comment on above: Order Comment: 109-1 Performed By: #### L 100.0100 ####[facility] [address] [place], [address] WBC (Bld) [#/Vol] 8.3 10*3/uL Normal 4.4-11.0 [facility] Comment on above: Order Comment: 109-1 Performed By: #### L 100.0100 ####[facility] [address] [place], [address] Eosinophil percentageOrdered By: Renard Burgos on 03-25-2024 Eosinophils/100 WBC (Bld) 0.7 % 0-5 [facility] Erythrocyte distribution wid th ratioOrdered By: Renard Burgos on 03-25-2024 Erythrocyte distribution width (RBC) [Ratio] 12.7 % 11.6-14.6 [facility] Erythrocyte distribution wid th standard deviationOrdered By: Renard Burgos on 03-25-2024 Erythrocyte distribution width (RBC) [Entitic vol] 41.8 fL 35.1-43.9 [facility] Hematocrit Auto (Bld) [Volum e fraction]Ordered By: Renard Burgos on 03-25-2024 Hematocrit (Bld) [Volume fraction] 42.3 % 40-54 [facility] Hemoglobin measurementOrdere d By: Renard Burgos on 03-25-2024 Hemoglobin (Bld) [Mass/Vol] 13.7 g/dL 13.0-16.5 [facility] Immature granulocytes/100 WB C Auto (Bld)Ordered By: Renard Burgos on 03-25-2024 Immature granulocytes/100 WBC (Bld) 0.500 % 0.0-0.9 [facility] Comment on above: IG% - Immature Granu locytes (promyelocytes, myelocytes and metamyelocytes) > 1% indicates that a LEFT SHIFT is Present. Lymphocytes Auto (Unsp spec) [#/Vol]Ordered By: Renard Burgos on 03-25-2024 Lymphocytes (Bld) [#/Vol] 2.14 10*3/uL 0.83-4.51 [facility] Lymphocytes/100 WBC Auto (Un sp spec)Ordered By: Renard Burgos on 03-25-2024 Lymphocytes/100 WBC (Bld) 25.8 % 19-41 [facility] MCV (mean corpuscular volume ) determinationOrdered By: Renard Burgos on 03-25-2024 MCV (RBC) [Entitic vol] 90.2 fL 80-94 [facility] Mean corpuscular hemoglobin (MCH) determinationOrdered By: Renard Burgos on 03-25-2024 MCH (RBC) [Entitic mass] 29.2 pg 27.0-32.0 [facility] Mean corpuscular hemoglobin concentration (MCHC) determinationOrdered By: Renard Burgos on 03-25-2024 MCHC (RBC) [Mass/Vol] 32.4 g/dL 32-36 [facility] Mean platelet volume determi nationOrdered By: Rneard Burgos on 03-25-2024 Platelet mean volume (Bld) [Entitic vol] 11.2 fL 6.2-12.0 [facility] Monocyte percentageOrdered B y: Renard Burgos on 03-25-2024 Monocytes/100 WBC (Bld) 8.0 % 0-10 [facility] Neutrophil percentageOrdered By: Renard Burgos on 03-25-2024 Neutrophils/100 WBC (Bld) 64.5 % 47-70 [facility] Nucleated red blood cell per centageOrdered By: Renard Burgos on 03-25-2024 Nucleated RBC/100 WBC (Bld) [Ratio] 0 % 0-5 [facility] Platelet countOrdered By: Garrick Bhatt on 03-25-2024 Platelets (Bld) [#/Vol] 204 10*3/uL 150-450 [facility] RBC Auto (Bld) [#/Vol]Ordere d By: Renard Burgos on 03-25-2024 RBC (Bld) [#/Vol] 4.69 10*6/uL 4.6-6.[address] [facility] White blood cell (WBC) count Ordered By: Renard Burgos on 03-25-2024 WBC (Bld) [#/Vol] 8.3 10*3/uL 4.4-11.0 [facility] Absolute neutrophil countOrd ered By: Renard Burgos on 03-18-2024 Neutrophils (Bld) [#/Vol] 5.2 10*3/uL 2.0-7.7 [facility] Basophil percentageOrdered B y: Renard Burgos on 03-18-2024 Basophils/100 WBC (Bld) 0.6 % 0-1 [facility] CBC W/Diff, Automatedon 03-01 Absolute Lymph 2.23 X10 3/uL Normal 0.83-4.51 [facility] Comment on above: Order Comment: 109.1 Performed By: #### L 100.0100 ####[facility] [address] [place], [address] Absolute Neut 5.2 X10 3/uL Normal 2.0-7.7 [facility] Comment on above: Order Comment: 109.1 Performed By: #### L 100.0100 ####[facility] [address] [place], [address] Basophils/100 WBC (Bld) 0.6 % Normal 0-1 [facility] Comment on above: Order Comment: 109.1 Performed By: #### L 100.0100 ####[facility] [address] [place], [address] Eosinophils/100 WBC (Bld) 0.7 % Normal 0-5 [facility] Comment on above: Order Comment: 109.1 Performed By: #### L 100.0100 ####[facility] [address] [place], [address] Erythrocyte distribution width (RBC) [Ratio] 12.8 % Normal 11.6-14.6 [facility] Comment on above: Order Comment: 109.1 Performed By: #### L 100.0100 ####[facility] [address] [place], [address] Hematocrit (Bld) [Volume fraction] 42.0 % Normal 40-54 [facility] Comment on above: Order Comment: 109.1 Performed By: #### L 100.0100 ####[facility] [address] [place], [address] Hemoglobin (Bld) [Mass/Vol] 13.6 g/dL Normal 13.0-16.5 [facility] Comment on above: Order Comment: 109.1 Performed By: #### L 100.0100 ####[facility] [address] [place], [address] IG% 0.500 Normal 0.0-0.9 [facility] Comment on above: Order Comment: 109.1 Result Comment: IG% - Immature Granulocytes (promyelocytes, myelocytes andmetamyelocytes) > 1% indicates that a LEFT SHIFT is Present. Performed By: #### L 100.0100 ####[facility] [address] [place], [address] Lymphocytes/100 WBC (Bld) 27.0 % Normal 19-41 [facility] Comment on above: Order Comment: 109.1 Performed By: #### L 100.0100 ####[facility] [address] [place], [address] MCH (RBC) [Entitic mass] 29.5 pg Normal 27.0-32.0 [facility] Comment on above: Order Comment: 109.1 Performed By: #### L 100.0100 ####[facility] [address] [place], [address] MCHC (RBC) [Mass/Vol] 32.4 g/dL Normal 32-36 [facility] Comment on above: Order Comment: 109.1 Performed By: #### L 100.0100 ####[facility] [address] [place], [address] MCV (RBC) [Entitic vol] 91.1 fL Normal 80-94 [facility] Comment on above: Order Comment: 109.1 Performed By: #### L 100.0100 ####[facility] [address] [place], [address] Monocytes/100 WBC (Bld) 8.5 % Normal 0-10 [facility] Comment on above: Order Comment: 109.1 Performed By: #### L 100.0100 ####[facility] [address] [place], [address] Neutrophils/100 WBC (Bld) 62.7 % Normal 47-70 [facility] Comment on above: Order Comment: 109.1 Performed By: #### L 100.0100 ####[facility] [address] [place], [address] Nucleated RBC (Bld) [#/Vol] 0 10*3/uL Normal 0-5 [facility] Comment on above: Order Comment: 109.1 Performed By: #### L 100.0100 ####[facility] [address] [place], [address] Platelet mean volume (Bld) [Entitic vol] 10.8 fL Normal 6.2-12.0 [facility] Comment on above: Order Comment: 109.1 Performed By: #### L 100.0100 ####[facility] [address] [place], [address] Platelets (Bld) [#/Vol] 211 10*3/uL Normal 150-450 [facility] Comment on above: Order Comment: 109.1 Performed By: #### L 100.0100 ####[facility] [address] [place], [address] RBC (Bld) [#/Vol] 4.61 10*6/uL Normal 4.6-6.[address] [facility] Comment on above: Order Comment: 109.1 Performed By: #### L 100.0100 ####[facility] [address] [place], [address] RDW SD 42.3 fl Normal 35.1-43.9 [facility] Comment on above: Order Comment: 109.1 Performed By: #### L 100.0100 ####[facility] [address] [place], [address] WBC (Bld) [#/Vol] 8.3 10*3/uL Normal 4.4-11.0 [facility] Comment on above: Order Comment: 109.1 Performed By: #### L 100.0100 ####[facility] [address] [place], [address] Eosinophil percentageOrdered By: Renard Burgos on 03-18-2024 Eosinophils/100 WBC (Bld) 0.7 % 0-5 [facility] Erythrocyte distribution wid th ratioOrdered By: Renard Burgos on 03-18-2024 Erythrocyte distribution width (RBC) [Ratio] 12.8 % 11.6-14.6 [facility] Erythrocyte distribution wid th standard deviationOrdered By: Renard Burgos on 03-18-2024 Erythrocyte distribution width (RBC) [Entitic vol] 42.3 fL 35.1-43.9 [facility] Hematocrit Auto (Bld) [Volum e fraction]Ordered By: Renard Burgos on 03-18-2024 Hematocrit (Bld) [Volume fraction] 42.0 % 40-54 [facility] Hemoglobin measurementOrdere d By: Renard Burgos on 03-18-2024 Hemoglobin (Bld) [Mass/Vol] 13.6 g/dL 13.0-16.5 [facility] Immature granulocytes/100 WB C Auto (Bld)Ordered By: Renard Burgos on 03-18-2024 Immature granulocytes/100 WBC (Bld) 0.500 % 0.0-0.9 [facility] Comment on above: IG% - Immature Granu locytes (promyelocytes, myelocytes and metamyelocytes) > 1% indicates that a LEFT SHIFT is Present. Lymphocytes Auto (Unsp spec) [#/Vol]Ordered By: Renard Burgos on 03-18-2024 Lymphocytes (Bld) [#/Vol] 2.23 10*3/uL 0.83-4.51 [facility] Lymphocytes/100 WBC Auto (Un sp spec)Ordered By: Renard Burgos on 03-18-2024 Lymphocytes/100 WBC (Bld) 27.0 % 19-41 [facility] MCV (mean corpuscular volume ) determinationOrdered By: Renard Burgos on 03-18-2024 MCV (RBC) [Entitic vol] 91.1 fL 80-94 [facility] Mean corpuscular hemoglobin (MCH) determinationOrdered By: Renard Burgos on 03-18-2024 MCH (RBC) [Entitic mass] 29.5 pg 27.0-32.0 [facility] Mean corpuscular hemoglobin concentration (MCHC) determinationOrdered By: Renard Burgos on 03-18-2024 MCHC (RBC) [Mass/Vol] 32.4 g/dL 32-36 [facility] Mean platelet volume determi nationOrdered By: Renard Burgos on 03-18-2024 Platelet mean volume (Bld) [Entitic vol] 10.8 fL 6.2-12.0 [facility] Monocyte percentageOrdered B y: Renard Burgos on 03-18-2024 Monocytes/100 WBC (Bld) 8.5 % 0-10 [facility] Neutrophil percentageOrdered By: Renard Burgos on 03-18-2024 Neutrophils/100 WBC (Bld) 62.7 % 47-70 [facility] Nucleated red blood cell per centageOrdered By: Renard Burgos on 03-18-2024 Nucleated RBC/100 WBC (Bld) [Ratio] 0 % 0-5 [facility] Platelet countOrdered By: Garrick Bhatt on 03-18-2024 Platelets (Bld) [#/Vol] 211 10*3/uL 150-450 [facility] RBC Auto (Bld) [#/Vol]Ordere d By: Renard Burgos on 03-18-2024 RBC (Bld) [#/Vol] 4.61 10*6/uL 4.6-6.[address] [facility] White blood cell (WBC) count Ordered By: Renard Burgos on 03-18-2024 WBC (Bld) [#/Vol] 8.3 10*3/uL 4.4-11.0 [facility] Absolute neutrophil countOrd ered By: Renard Burgos on 03-11-2024 Neutrophils (Bld) [#/Vol] 6.2 10*3/uL 2.0-7.7 [facility] Automated blood erythrocyte countOrdered By: Renard Burgos on 03-11-2024 RBC (Bld) [#/Vol] 4.54 10*6/uL Low 4.6-6.[address] [facility] Comment on above: Order Comment: 109.1 Performed By: #### L 100.0100 ####[facility] [address] [place], [address] Automated blood hematocrit ( percentage)Ordered By: Renard Burgos on 03-11-2024 Hematocrit (Bld) [Volume fraction] 41.5 % Normal 40-54 [facility] Comment on above: Order Comment: 109.1 Performed By: #### L 100.0100 ####[facility] [address] [place], [address] Automated lymphocyte count a s percentage of total leukocytesOrdered By: Renard Burgos on 03-11-2024 Lymphocytes/100 WBC (Bld) 25.6 % Normal 19-41 [facility] Comment on above: Order Comment: 109.1 Performed By: #### L 100.0100 ####[facility] [address] [place], [address] Basophil percentageOrdered B y: Renard Burgos on 03-11-2024 Basophils/100 WBC (Bld) 0.5 % Normal 0-1 [facility] Comment on above: Order Comment: 109.1 Performed By: #### L 100.0100 ####[facility] [address] [place], [address] CBC W/Diff, Automatedon 03-01 Absolute Lymph 2.50 X10 3/uL Normal 0.83-4.51 [facility] Comment on above: Order Comment: 109.1 Performed By: #### L 100.0100 ####[facility] [address] [place], [address] Absolute Neut 6.2 X10 3/uL Normal 2.0-7.7 [facility] Comment on above: Order Comment: 109.1 Performed By: #### L 100.0100 ####[facility] [address] [place], [address] IG% 0.500 Normal 0.0-0.9 [facility] Comment on above: Order Comment: 109.1 Result Comment: IG% - Immature Granulocytes (promyelocytes, myelocytes andmetamyelocytes) > 1% indicates that a LEFT SHIFT is Present. Performed By: #### L 100.0100 ####[facility] [address] [place], [address] Nucleated RBC (Bld) [#/Vol] 0 10*3/uL Normal 0-5 [facility] Comment on above: Order Comment: 109.1 Performed By: #### L 100.0100 ####[facility] [address] [place], [address] RDW SD 41.5 fl Normal 35.1-43.9 [facility] Comment on above: Order Comment: 109.1 Performed By: #### L 100.0100 ####[facility] [address] [place], [address] Eosinophil percentageOrdered By: Renard Burgos on 03-11-2024 Eosinophils/100 WBC (Bld) 0.6 % Normal 0-5 [facility] Comment on above: Order Comment: 109.1 Performed By: #### L 100.0100 ####[facility] [address] [place], [address] Erythrocyte distribution wid th ratioOrdered By: Renard Burgos on 03-11-2024 Erythrocyte distribution width (RBC) [Ratio] 12.7 % Normal 11.6-14.6 [facility] Comment on above: Order Comment: 109.1 Performed By: #### L 100.0100 ####[facility] [address] [place], [address] Erythrocyte distribution wid th standard deviationOrdered By: Renard Burgos on 03-11-2024 Erythrocyte distribution width (RBC) [Entitic vol] 41.5 fL 35.1-43.9 [facility] Hemoglobin measurementOrdere d By: Renard Burgos on 03-11-2024 Hemoglobin (Bld) [Mass/Vol] 13.8 g/dL Normal 13.0-16.5 [facility] Comment on above: Order Comment: 109.1 Performed By: #### L 100.0100 ####[facility] [address] [place], [place], [id number] Immature granulocytes/100 WB C Auto (Bld)Ordered By: Renard Burgos on 03-11-2024 Immature granulocytes/100 WBC (Bld) 0.500 % 0.0-0.9 [facility] Comment on above: IG% - Immature Granu locytes (promyelocytes, myelocytes and metamyelocytes) > 1% indicates that a LEFT SHIFT is Present. Lymphocytes Auto (Unsp spec) [#/Vol]Ordered By: Renard Burgos on 03-11-2024 Lymphocytes (Bld) [#/Vol] 2.50 10*3/uL 0.83-4.51 [facility] MCV (mean corpuscular volume ) determinationOrdered By: Renard Burgos on 03-11-2024 MCV (RBC) [Entitic vol] 91.4 fL Normal 80-94 [facility] Comment on above: Order Comment: 109.1 Performed By: #### L 100.0100 ####[facility] [address] [place], [place], [id number] Mean corpuscular hemoglobin (MCH) determinationOrdered By: Renard Burgos on 03-11-2024 MCH (RBC) [Entitic mass] 30.4 pg Normal 27.0-32.0 [facility] Comment on above: Order Comment: 109.1 Performed By: #### L 100.0100 ####[facility] [address] [place], [address] Mean corpuscular hemoglobin concentration (MCHC) determinationOrdered By: Renard Burgos on 03-11-2024 MCHC (RBC) [Mass/Vol] 33.3 g/dL Normal 32-36 [facility] Comment on above: Order Comment: 109.1 Performed By: #### L 100.0100 ####[facility] [address] [place], [address] Mean platelet volume determi nationOrdered By: Renard Burgos on 03-11-2024 Platelet mean volume (Bld) [Entitic vol] 11.0 fL Normal 6.2-12.0 [facility] Comment on above: Order Comment: 109.1 Performed By: #### L 100.0100 ####[facility] [address] [place], [address] Monocyte percentageOrdered B y: Renard Burgos on 03-11-2024 Monocytes/100 WBC (Bld) 9.0 % Normal 0-10 [facility] Comment on above: Order Comment: 109.1 Performed By: #### L 100.0100 ####[facility] [address] [place], [address] Neutrophil percentageOrdered By: Renard Burgos on 03-11-2024 Neutrophils/100 WBC (Bld) 63.8 % Normal 47-70 [facility] Comment on above: Order Comment: 109.1 Performed By: #### L 100.0100 ####[facility] [address] [place], [address] Nucleated red blood cell per centageOrdered By: Renard Burgos on 03-11-2024 Nucleated RBC/100 WBC (Bld) [Ratio] 0 % 0-5 [facility] Platelet countOrdered By: Garrick Bhatt on 03-11-2024 Platelets (Bld) [#/Vol] 220 10*3/uL Normal 150-450 [facility] Comment on above: Order Comment: 109.1 Performed By: #### L 100.0100 ####[facility] [address] [place], [address] White blood cell (WBC) count Ordered By: Renard Burgos on 03-11-2024 WBC (Bld) [#/Vol] 9.8 10*3/uL Normal 4.4-11.0 [facility] Comment on above: Order Comment: 109.1 Performed By: #### L 100.0100 ####[facility] [address] [place], [address] CBC W/Diff, Automatedon 11-0 4-4 Absolute Lymph 1.99 X10 3/uL Normal 0.83-4.51 [facility] Comment on above: Order Comment: 109.1 Performed By: #### L 100.0100 ####[facility] [address] [place], [address] Absolute Neut 5.3 X10 3/uL Normal 2.0-7.7 [facility] Comment on above: Order Comment: 109.1 Performed By: #### L 100.0100 ####[facility] [address] [place], [address] Basophils/100 WBC (Bld) 0.6 % Normal 0-1 [facility] Comment on above: Order Comment: 109.1 Performed By: #### L 100.0100 ####[facility] [address] [place], [address] Eosinophils/100 WBC (Bld) 0.7 % Normal 0-5 [facility] Comment on above: Order Comment: 109.1 Performed By: #### L 100.0100 ####[facility] [address] [place], [address] Erythrocyte distribution width (RBC) [Ratio] 12.7 % Normal 11.6-14.6 [facility] Comment on above: Order Comment: 109.1 Performed By: #### L 100.0100 ####[facility] [address] [place], [address] Hematocrit (Bld) [Volume fraction] 42.1 % Normal 40-54 [facility] Comment on above: Order Comment: 109.1 Performed By: #### L 100.0100 ####[facility] [address] [place], [address] Hemoglobin (Bld) [Mass/Vol] 14.0 g/dL Normal 13.0-16.5 [facility] Comment on above: Order Comment: 109.1 Performed By: #### L 100.0100 ####[facility] [address] [place], [address] IG% 0.400 Normal 0.0-0.9 [facility] Comment on above: Order Comment: 109.1 Result Comment: IG% - Immature Granulocytes (promyelocytes, myelocytes andmetamyelocytes) > 1% indicates that a LEFT SHIFT is Present. Performed By: #### L 100.0100 ####[facility] [address] [place], [address] Lymphocytes/100 WBC (Bld) 24.5 % Normal 19-41 [facility] Comment on above: Order Comment: 109.1 Performed By: #### L 100.0100 ####[facility] [address] [place], [address] MCH (RBC) [Entitic mass] 30.2 pg Normal 27.0-32.0 [facility] Comment on above: Order Comment: 109.1 Performed By: #### L 100.0100 ####[facility] [address] [place], [address] MCHC (RBC) [Mass/Vol] 33.3 g/dL Normal 32-36 [facility] Comment on above: Order Comment: 109.1 Performed By: #### L 100.0100 ####[facility] [address] [place], [address] MCV (RBC) [Entitic vol] 90.7 fL Normal 80-94 [facility] Comment on above: Order Comment: 109.1 Performed By: #### L 100.0100 ####[facility] [address] [place], [address] Monocytes/100 WBC (Bld) 8.2 % Normal 0-10 [facility] Comment on above: Order Comment: 109.1 Performed By: #### L 100.0100 ####[facility] [address] [place], [address] Neutrophils/100 WBC (Bld) 65.6 % Normal 47-70 [facility] Comment on above: Order Comment: 109.1 Performed By: #### L 100.0100 ####[facility] [address] [place], [address] Nucleated RBC (Bld) [#/Vol] 0 10*3/uL Normal 0-5 [facility] Comment on above: Order Comment: 109.1 Performed By: #### L 100.0100 ####[facility] [address] [place], [address] Platelet mean volume (Bld) [Entitic vol] 11.0 fL Normal 6.2-12.0 [facility] Comment on above: Order Comment: 109.1 Performed By: #### L 100.0100 ####[facility] [address] [place], [address] Platelets (Bld) [#/Vol] 216 10*3/uL Normal 150-450 [facility] Comment on above: Order Comment: 109.1 Performed By: #### L 100.0100 ####[facility] [address] [place], [address] RBC (Bld) [#/Vol] 4.64 10*6/uL Normal 4.6-6.[address] [facility] Comment on above: Order Comment: 109.1 Performed By: #### L 100.0100 ####[facility] [address] [place], [address] RDW SD 41.9 fl Normal 35.1-43.9 [facility] Comment on above: Order Comment: 109.1 Performed By: #### L 100.0100 ####[facility] [address] [place], [address] WBC (Bld) [#/Vol] 8.1 10*3/uL Normal 4.4-11.0 [facility] Comment on above: Order Comment: 109.1 Performed By: #### L 100.0100 ####[facility] [address] [place], [address] CBC W/Diff, Automatedon 10-2 -2023 Absolute Lymph 2.15 X10 3/uL Normal 0.83-4.51 [facility] Comment on above: Order Comment: 109.1 Performed By: #### L 100.0100 ####[facility] [address] [place], [address] Absolute Neut 7.1 X10 3/uL Normal 2.0-7.7 [facility] Comment on above: Order Comment: 109.1 Performed By: #### L 100.0100 ####[facility] [address] [place], [address] Basophils/100 WBC (Bld) 0.4 % Normal 0-1 [facility] Comment on above: Order Comment: 109.1 Performed By: #### L 100.0100 ####[facility] [address] [place], [address] Eosinophils/100 WBC (Bld) 0.6 % Normal 0-5 [facility] Comment on above: Order Comment: 109.1 Performed By: #### L 100.0100 ####[facility] [address] [place], [address] Erythrocyte distribution width (RBC) [Ratio] 12.6 % Normal 11.6-14.6 [facility] Comment on above: Order Comment: 109.1 Performed By: #### L 100.0100 ####[facility] [address] [place], [address] Hematocrit (Bld) [Volume fraction] 40.2 % Normal 40-54 [facility] Comment on above: Order Comment: 109.1 Performed By: #### L 100.0100 ####[facility] [address] [place], [address] Hemoglobin (Bld) [Mass/Vol] 13.6 g/dL Normal 13.0-16.5 [facility] Comment on above: Order Comment: 109.1 Performed By: #### L 100.0100 ####[facility] [address] [place], [address] IG% 0.500 Normal 0.0-0.9 [facility] Comment on above: Order Comment: 109.1 Result Comment: IG% - Immature Granulocytes (promyelocytes, myelocytes andmetamyelocytes) > 1% indicates that a LEFT SHIFT is Present. Performed By: #### L 100.0100 ####[facility] [address] [place], [address] Lymphocytes/100 WBC (Bld) 20.9 % Normal 19-41 [facility] Comment on above: Order Comment: 109.1 Performed By: #### L 100.0100 ####[facility] [address] [place], [address] MCH (RBC) [Entitic mass] 30.6 pg Normal 27.0-32.0 [facility] Comment on above: Order Comment: 109.1 Performed By: #### L 100.0100 ####[facility] [address] [place], [address] MCHC (RBC) [Mass/Vol] 33.8 g/dL Normal 32-36 [facility] Comment on above: Order Comment: 109.1 Performed By: #### L 100.0100 ####[facility] [address] [place], [address] MCV (RBC) [Entitic vol] 90.5 fL Normal 80-94 [facility] Comment on above: Order Comment: 109.1 Performed By: #### L 100.0100 ####[facility] [address] [place], [address] Monocytes/100 WBC (Bld) 8.5 % Normal 0-10 [facility] Comment on above: Order Comment: 109.1 Performed By: #### L 100.0100 ####[facility] [address] [place], [address] Neutrophils/100 WBC (Bld) 69.1 % Normal 47-70 [facility] Comment on above: Order Comment: 109.1 Performed By: #### L 100.0100 ####[facility] [address] [place], [address] Nucleated RBC (Bld) [#/Vol] 0 10*3/uL Normal 0-5 [facility] Comment on above: Order Comment: 109.1 Performed By: #### L 100.0100 ####[facility] [address] [place], [address] Platelet mean volume (Bld) [Entitic vol] 11.2 fL Normal 6.2-12.0 [facility] Comment on above: Order Comment: 109.1 Performed By: #### L 100.0100 ####[facility] [address] [place], [address] Platelets (Bld) [#/Vol] 226 10*3/uL Normal 150-450 [facility] Comment on above: Order Comment: 109.1 Performed By: #### L 100.0100 ####[facility] [address] [place], [address] RBC (Bld) [#/Vol] 4.44 10*6/uL Low 4.6-6.[address] [facility] Comment on above: Order Comment: 109.1 Performed By: #### L 100.0100 ####[facility] [address] [place], [address] RDW SD 41.5 fl Normal 35.1-43.9 [facility] Comment on above: Order Comment: 109.1 Performed By: #### L 100.0100 ####[facility] [address] [place], [address] WBC (Bld) [#/Vol] 10.3 10*3/uL Normal 4.4-11.[address] [facility] Comment on above: Order Comment: 109.1 Performed By: #### L 100.0100 ####[facility] [address] [place], [address] CBC-Complete Blood Cnt No Di ffon 02-23-2024 Erythrocyte distribution width (RBC) [Ratio] 12.9 % Normal 11.6-14.6 [facility] Comment on above: Order Comment: 109-1 Performed By: #### L 100.0500, L500.4100, L500.4050 ####[facility] [address] [place], [address] Hematocrit (Bld) [Volume fraction] 41.6 % Normal 40-54 [facility] Comment on above: Order Comment: 109-1 Performed By: #### L 100.0500, L500.4100, L500.4050 ####[facility] [address] [place], [address] Hemoglobin (Bld) [Mass/Vol] 14.0 g/dL Normal 13.0-16.5 [facility] Comment on above: Order Comment: 109-1 Performed By: #### L 100.0500, L500.4100, L500.4050 ####[facility] [address] [place], [address] MCH (RBC) [Entitic mass] 30.6 pg Normal 27.0-32.0 [facility] Comment on above: Order Comment: 109-1 Performed By: #### L 100.0500, L500.4100, L500.4050 ####[facility] [address] [place], [address] MCHC (RBC) [Mass/Vol] 33.7 g/dL Normal 32-36 [facility] Comment on above: Order Comment: 109-1 Performed By: #### L 100.0500, L500.4100, L500.4050 ####[facility] [address] [place], [address] MCV (RBC) [Entitic vol] 91.0 fL Normal 80-94 [facility] Comment on above: Order Comment: 109-1 Performed By: #### L 100.0500, L500.4100, L500.4050 ####[facility] [address] [place], [address] Platelet mean volume (Bld) [Entitic vol] 11.5 fL Normal 6.2-12.0 [facility] Comment on above: Order Comment: 109-1 Performed By: #### L 100.0500, L500.4100, L500.4050 ####[facility] [address] [place], [address] Platelets (Bld) [#/Vol] 209 10*3/uL Normal 150-450 [facility] Comment on above: Order Comment: 109-1 Performed By: #### L 100.0500, L500.4100, L500.4050 ####[facility] [address] [place], [address] RBC (Bld) [#/Vol] 4.57 10*6/uL Low 4.6-6.[address] [facility] Comment on above: Order Comment: 109-1 Performed By: #### L 100.0500, L500.4100, L500.4050 ####[facility] [address] [place], [address] RDW SD 42.4 fl Normal 35.1-43.9 [facility] Comment on above: Order Comment: 109-1 Performed By: #### L 100.0500, L500.4100, L500.4050 ####[facility] [address] [place], [address] WBC (Bld) [#/Vol] 8.4 10*3/uL Normal 4.4-11.0 [facility] Comment on above: Order Comment: 109-1 Performed By: #### L 100.0500, L500.4100, L500.4050 ####[facility] [address] [place], [address] Comprehensive Metabolic Prof ilon 02-23-2024 Albumin [Mass/Vol] 3.1 g/dL Low 3.2-5.0 [facility] Comment on above: Order Comment: 109-1 Performed By: #### L 100.0500, L500.4100, L500.4050 ####[facility] [address] [place], [address] Albumin/Globulin [Mass ratio] 1.1 {ratio} Normal 0.9-2.4 [facility] Comment on above: Order Comment: 109-1 Performed By: #### L 100.0500, L500.4100, L500.4050 ####[facility] [address] [place], [address] ALK P 123 U/L High 45-117 [facility] Comment on above: Order Comment: 109-1 Performed By: #### L 100.0500, L500.4100, L500.4050 ####[facility] [address] [place], [address] ALT [Catalytic activity/Vol] 16 U/L Normal 16-61 [facility] Comment on above: Order Comment: 109-1 Performed By: #### L 100.0500, L500.4100, L500.4050 ####[facility] [address] [place], [address] AST [Catalytic activity/Vol] 10 U/L Low 15-37 [facility] Comment on above: Order Comment: 109-1 Performed By: #### L 100.0500, L500.4100, L500.4050 ####[facility] [address] [place], [address] Bilirubin [Mass/Vol] 0.50 mg/dL Normal 0.20-1.00 [facility] Comment on above: Order Comment: 109-1 Result Comment: For patients on eltrombopag therapy, use of Dimension [place] TBIL is not recommended. Performed By: #### L 100.0500, L500.4100, L500.4050 ####[facility] [address] [place], [address] BUN/CRE 24.9 RATIO High 10-20 [facility] Comment on above: Order Comment: 109-1 Performed By: #### L 100.0500, L500.4100, L500.4050 ####[facility] [address] [place], [address] CA,Total 8.5 mg/dL Normal 8.5-10.1 [facility] Comment on above: Order Comment: 109-1 Performed By: #### L 100.0500, L500.4100, L500.4050 ####[facility] [address] [place], [address] Chloride [Moles/Vol] 109 mmol/L High 98-107 [facility] Comment on above: Order Comment: 109-1 Performed By: #### L 100.0500, L500.4100, L500.4050 ####[facility] [address] [place], [address] CO2 [Moles/Vol] 27.0 mmol/L Normal 21.0-32.0 [facility] Comment on above: Order Comment: 109-1 Performed By: #### L 100.0500, L500.4100, L500.4050 ####[facility] [address] [place], [address] Creatinine [Mass/Vol] 0.64 mg/dL Low 0.70-1.30 [facility] Comment on above: Order Comment: 109-1 Result Comment: The validity of the calculated GFR GFRAA in patients over70 years has not been determined. Clinical correlation isessential. Performed By: #### L 100.0500, L500.4100, L500.4050 ####[facility] [address] [place], [address] EST GFR - AA 160 mL/min Normal >60 [facility] Comment on above: Order Comment: -1 Result Comment: Afri can [place]an GFR Calc Performed By: #### L 100.0500, L500.4100, L500.4050 ####[facility] [address] [place], [address] GAP 6 Normal 5-15 [facility] Comment on above: Order Comment: 109-1 Performed By: #### L 100.0500, L500.4100, L500.4050 ####[facility] [address] [place], [address] GFR/1.73 sq M.predicted among non-blacks MDRD (S/P/Bld) [Vol rate/Area] 132 mL/min/{1.73_m2} Normal >60 [facility] Comment on above: Order Comment: 109-1 Result Comment: Non- GFR Calc Performed By: #### L 100.0500, L500.4100, L500.4050 ####[facility] [address] [place], [address] Globulin (S) [Mass/Vol] 2.9 g/dL Normal 2.2-4.2 [facility] Comment on above: Order Comment: 109-1 Performed By: #### L 100.0500, L500.4100, L500.4050 ####[facility] [address] [place], [address] Glucose [Mass/Vol] 111 mg/dL High 74-106 [facility] Comment on above: Order Comment: 109-1 Result Comment: Fast ing Glucose result from 100 to 125 mg/dLsuggests IMPAIRED HOMEOSTASIS per A.D.A. criteria. Performed By: #### L 100.0500, L500.4100, L500.4050 ####[facility] [address] [place], [address] Potassium [Moles/Vol] 3.6 mmol/L Normal 3.5-5.1 [facility] Comment on above: Order Comment: 109-1 Performed By: #### L 100.0500, L500.4100, L500.4050 ####[facility] [address] [place], [address] Sodium [Moles/Vol] 141 mmol/L Normal 136-145 [facility] Comment on above: Order Comment: 109-1 Performed By: #### L 100.0500, L500.4100, L500.4050 ####[facility] [address] [place], [address] T PROT 6.0 g/dL Low 6.4-8.2 [facility] Comment on above: Order Comment: 109-1 Performed By: #### L 100.0500, L500.4100, L500.4050 ####[facility] [address] [place], [address] Urea nitrogen [Mass/Vol] 16 mg/dL Normal 7-18 [facility] Comment on above: Order Comment: 109-1 Performed By: #### L 100.0500, L500.4100, L500.4050 ####[facility] [address] [place], [address] Lipid Profileon 02-23-2024 Cholesterol [Mass/Vol] 123 mg/dL Normal 200 [facility] Comment on above: Order Comment: 109 Result Comment: <200 mg/dL Desirable 200-240 mg/dL Borderline >240 mg/dL High Risk Performed By: #### L 100.0500, L500.4100, L500.4050 ####[facility] [address] [place], [address] Cholesterol in HDL [Mass/Vol] 28 mg/dL Low [facility] Comment on above: Order Comment: Result Comment: The drugs N-Acetylcysteine and Metamizole may falselydepress this assay. Reference Range HDL <40 mg/dL Low HDL Cholesterol HDL >or= 60 mg/dL High HDL Cholesterol Performed By: #### L 100.0500, L500.4100, L500.4050 ####[facility] [address] [place], [address] Cholesterol in LDL [Mass/Vol] 71 mg/dL Normal 0-130 [facility] Comment on above: Order Comment: Performed By: #### L 100.0500, L500.4100, L500.4050 ####[facility] [address] [place], [address] Cholesterol in VLDL [Mass/Vol] 24 mg/dL Normal 5-40 [facility] Comment on above: Order Comment: Performed By: #### L 100.0500, L500.4100, L500.4050 ####[facility] [address] [place], [address] Triglyceride [Mass/Vol] 119 mg/dL Normal [facility] Comment on above: Order Comment: Result Comment: The drugs N-Acetylcysteine and Metamizole may falselydepress this assay.Serum Triglycerides Reference Interval Normal <150 mg/dL Borderline high 150 - 199 mg/dL High 200 - 499 mg/dL Very High > or = 500 mg/dL Performed By: #### L 100.0500, L500.4100, L500.4050 ####[facility] [address] [place], [address] CBC W/Diff, Automatedon 10-2 Absolute Lymph 1.92 X10 3/uL Normal 0.83-4.51 [facility] Comment on above: Order Comment: 109-1 Performed By: #### L 100.0100 ####[facility] [address] [place], [address] Absolute Neut 6.9 X10 3/uL Normal 2.0-7.7 [facility] Comment on above: Order Comment: 109-1 Performed By: #### L 100.0100 ####[facility] [address] [place], [address] Basophils/100 WBC (Bld) 0.4 % Normal 0-1 [facility] Comment on above: Order Comment: 109-1 Performed By: #### L 100.0100 ####[facility] [address] [place], [address] Eosinophils/100 WBC (Bld) 0.6 % Normal 0-5 [facility] Comment on above: Order Comment: 109-1 Performed By: #### L 100.0100 ####[facility] [address] [place], [address] Erythrocyte distribution width (RBC) [Ratio] 12.9 % Normal 11.6-14.6 [facility] Comment on above: Order Comment: 109-1 Performed By: #### L 100.0100 ####[facility] [address] [place], [address] Hematocrit (Bld) [Volume fraction] 40.4 % Normal 40-54 [facility] Comment on above: Order Comment: 109-1 Performed By: #### L 100.0100 ####[facility] [address] [place], [address] Hemoglobin (Bld) [Mass/Vol] 13.3 g/dL Normal 13.0-16.5 [facility] Comment on above: Order Comment: 109-1 Performed By: #### L 100.0100 ####[facility] [address] [place], [address] IG% 0.300 Normal 0.0-0.9 [facility] Comment on above: Order Comment: 109-1 Result Comment: IG% - Immature Granulocytes (promyelocytes, myelocytes andmetamyelocytes) > 1% indicates that a LEFT SHIFT is Present. Performed By: #### L 100.0100 ####[facility] [address] [place], [address] Lymphocytes/100 WBC (Bld) 20.1 % Normal 19-41 [facility] Comment on above: Order Comment: 109-1 Performed By: #### L 100.0100 ####[facility] [address] [place], [address] MCH (RBC) [Entitic mass] 30.2 pg Normal 27.0-32.0 [facility] Comment on above: Order Comment: 109-1 Performed By: #### L 100.0100 ####[facility] [address] [place], [address] MCHC (RBC) [Mass/Vol] 32.9 g/dL Normal 32-36 [facility] Comment on above: Order Comment: 109-1 Performed By: #### L 100.0100 ####[facility] [address] [place], [address] MCV (RBC) [Entitic vol] 91.6 fL Normal 80-94 [facility] Comment on above: Order Comment: 109-1 Performed By: #### L 100.0100 ####[facility] [address] [place], [address] Monocytes/100 WBC (Bld) 6.8 % Normal 0-10 [facility] Comment on above: Order Comment: 109-1 Performed By: #### L 100.0100 ####[facility] [address] [place], [address] Neutrophils/100 WBC (Bld) 71.8 % High 47-70 [facility] Comment on above: Order Comment: 109-1 Performed By: #### L 100.0100 ####[facility] [address] [place], [address] Nucleated RBC (Bld) [#/Vol] 0 10*3/uL Normal 0-5 [facility] Comment on above: Order Comment: 109-1 Performed By: #### L 100.0100 ####[facility] [address] [place], [address] Platelet mean volume (Bld) [Entitic vol] 10.9 fL Normal 6.2-12.0 [facility] Comment on above: Order Comment: 109-1 Performed By: #### L 100.0100 ####[facility] [address] [place], [address] Platelets (Bld) [#/Vol] 209 10*3/uL Normal 150-450 [facility] Comment on above: Order Comment: 109-1 Performed By: #### L 100.0100 ####[facility] [address] [place], [address] RBC (Bld) [#/Vol] 4.41 10*6/uL Low 4.6-6.[address] [facility] Comment on above: Order Comment: 109-1 Performed By: #### L 100.0100 ####[facility] [address] [place], [address] RDW SD 42.8 fl Normal 35.1-43.9 [facility] Comment on above: Order Comment: 109-1 Performed By: #### L 100.0100 ####[facility] [address] [place], [address] WBC (Bld) [#/Vol] 9.6 10*3/uL Normal 4.4-11.0 [facility] Comment on above: Order Comment: 109-1 Performed By: #### L 100.0100 ####[facility] [address] [place], [address] CBC W/Diff, Automatedon 10-05 04-2023 Absolute Lymph 2.08 X10 3/uL Normal 0.83-4.51 [facility] Comment on above: Order Comment: 109.1 Performed By: #### L 100.0100 ####[facility] [address] [place], [address] Absolute Neut 6.9 X10 3/uL Normal 2.0-7.7 [facility] Comment on above: Order Comment: 109.1 Performed By: #### L 100.0100 ####[facility] [address] [place], [address] Basophils/100 WBC (Bld) 0.5 % Normal 0-1 [facility] Comment on above: Order Comment: 109.1 Performed By: #### L 100.0100 ####[facility] [address] [place], [address] Eosinophils/100 WBC (Bld) 0.3 % Normal 0-5 [facility] Comment on above: Order Comment: 109.1 Performed By: #### L 100.0100 ####[facility] [address] [place], [address] Erythrocyte distribution width (RBC) [Ratio] 12.8 % Normal 11.6-14.6 [facility] Comment on above: Order Comment: 109.1 Performed By: #### L 100.0100 ####[facility] [address] [place], [address] Hematocrit (Bld) [Volume fraction] 40.6 % Normal 40-54 [facility] Comment on above: Order Comment: 109.1 Performed By: #### L 100.0100 ####[facility] [address] [place], [address] Hemoglobin (Bld) [Mass/Vol] 13.1 g/dL Normal 13.0-16.5 [facility] Comment on above: Order Comment: 109.1 Performed By: #### L 100.0100 ####[facility] [address] [place], [address] IG% 0.300 Normal 0.0-0.9 [facility] Comment on above: Order Comment: 109.1 Result Comment: IG% - Immature Granulocytes (promyelocytes, myelocytes andmetamyelocytes) > 1% indicates that a LEFT SHIFT is Present. Performed By: #### L 100.0100 ####[facility] [address] [place], [address] Lymphocytes/100 WBC (Bld) 21.2 % Normal 19-41 [facility] Comment on above: Order Comment: 109.1 Performed By: #### L 100.0100 ####[facility] [address] [place], [address] MCH (RBC) [Entitic mass] 29.8 pg Normal 27.0-32.0 [facility] Comment on above: Order Comment: 109.1 Performed By: #### L 100.0100 ####[facility] [address] [place], [address] MCHC (RBC) [Mass/Vol] 32.3 g/dL Normal 32-36 [facility] Comment on above: Order Comment: 109.1 Performed By: #### L 100.0100 ####[facility] [address] [place], [address] MCV (RBC) [Entitic vol] 92.5 fL Normal 80-94 [facility] Comment on above: Order Comment: 109.1 Performed By: #### L 100.0100 ####[facility] [address] [place], [address] Monocytes/100 WBC (Bld) 7.6 % Normal 0-10 [facility] Comment on above: Order Comment: 109.1 Performed By: #### L 100.0100 ####[facility] [address] [place], [address] Neutrophils/100 WBC (Bld) 70.1 % High 47-70 [facility] Comment on above: Order Comment: 109.1 Performed By: #### L 100.0100 ####[facility] [address] [place], [address] Nucleated RBC (Bld) [#/Vol] 0 10*3/uL Normal 0-5 [facility] Comment on above: Order Comment: 109.1 Performed By: #### L 100.0100 ####[facility] [address] [place], [address] Platelet mean volume (Bld) [Entitic vol] 10.8 fL Normal 6.2-12.0 [facility] Comment on above: Order Comment: 109.1 Performed By: #### L 100.0100 ####[facility] [address] [place], [address] Platelets (Bld) [#/Vol] 221 10*3/uL Normal 150-450 [facility] Comment on above: Order Comment: 109.1 Performed By: #### L 100.0100 ####[facility] [address] [place], [address] RBC (Bld) [#/Vol] 4.39 10*6/uL Low 4.6-6.[address] [facility] Comment on above: Order Comment: 109.1 Performed By: #### L 100.0100 ####[facility] [address] [place], [address] RDW SD 43.4 fl Normal 35.1-43.9 [facility] Comment on above: Order Comment: 109.1 Performed By: #### L 100.0100 ####[facility] [address] [place], [address] WBC (Bld) [#/Vol] 9.8 10*3/uL Normal 4.4-11.0 [facility] Comment on above: Order Comment: 109.1 Performed By: #### L 100.0100 ####[facility] [address] [place], [address] CBC W/Diff, Automatedon 10-0 7-2024 Absolute Lymph 2.06 X10 3/uL Normal 0.83-4.51 [facility] Comment on above: Order Comment: 109.1 Performed By: #### L 100.0100 ####[facility] [address] [place], [address] Absolute Neut 4.8 X10 3/uL Normal 2.0-7.7 [facility] Comment on above: Order Comment: 109.1 Performed By: #### L 100.0100 ####[facility] [address] [place], [address] Basophils/100 WBC (Bld) 0.7 % Normal 0-1 [facility] Comment on above: Order Comment: 109.1 Performed By: #### L 100.0100 ####[facility] [address] [place], [address] Eosinophils/100 WBC (Bld) 0.5 % Normal 0-5 [facility] Comment on above: Order Comment: 109.1 Performed By: #### L 100.0100 ####[facility] [address] [place], [address] Erythrocyte distribution width (RBC) [Ratio] 13.2 % Normal 11.6-14.6 [facility] Comment on above: Order Comment: 109.1 Performed By: #### L 100.0100 ####[facility] [address] [place], [address] Hematocrit (Bld) [Volume fraction] 42.7 % Normal 40-54 [facility] Comment on above: Order Comment: 109.1 Performed By: #### L 100.0100 ####[facility] [address] [place], [address] Hemoglobin (Bld) [Mass/Vol] 13.5 g/dL Normal 13.0-16.5 [facility] Comment on above: Order Comment: 109.1 Performed By: #### L 100.0100 ####[facility] [address] [place], [address] IG% 0.400 Normal 0.0-0.9 [facility] Comment on above: Order Comment: 109.1 Result Comment: IG% - Immature Granulocytes (promyelocytes, myelocytes andmetamyelocytes) > 1% indicates that a LEFT SHIFT is Present. Performed By: #### L 100.0100 ####[facility] [address] [place], [address] Lymphocytes/100 WBC (Bld) 26.9 % Normal 19-41 [facility] Comment on above: Order Comment: 109.1 Performed By: #### L 100.0100 ####[facility] [address] [place], [address] MCH (RBC) [Entitic mass] 29.3 pg Normal 27.0-32.0 [facility] Comment on above: Order Comment: 109.1 Performed By: #### L 100.0100 ####[facility] [address] [place], [address] MCHC (RBC) [Mass/Vol] 31.6 g/dL Low 32-36 [facility] Comment on above: Order Comment: 109.1 Performed By: #### L 100.0100 ####[facility] [address] [place], [address] MCV (RBC) [Entitic vol] 92.8 fL Normal 80-94 [facility] Comment on above: Order Comment: 109.1 Performed By: #### L 100.0100 ####[facility] [address] [place], [address] Monocytes/100 WBC (Bld) 9.3 % Normal 0-10 [facility] Comment on above: Order Comment: 109.1 Performed By: #### L 100.0100 ####[facility] [address] [place], [address] Neutrophils/100 WBC (Bld) 62.2 % Normal 47-70 [facility] Comment on above: Order Comment: 109.1 Performed By: #### L 100.0100 ####[facility] [address] [place], [address] Nucleated RBC (Bld) [#/Vol] 0 10*3/uL Normal 0-5 [facility] Comment on above: Order Comment: 109.1 Performed By: #### L 100.0100 ####[facility] [address] [place], [address] Platelet mean volume (Bld) [Entitic vol] 11.2 fL Normal 6.2-12.0 [facility] Comment on above: Order Comment: 109.1 Performed By: #### L 100.0100 ####[facility] [address] [place], [address] Platelets (Bld) [#/Vol] 192 10*3/uL Normal 150-450 [facility] Comment on above: Order Comment: 109.1 Performed By: #### L 100.0100 ####[facility] [address] [place], [address] RBC (Bld) [#/Vol] 4.60 10*6/uL Normal 4.6-6.[address] [facility] Comment on above: Order Comment: 109.1 Performed By: #### L 100.0100 ####[facility] [address] [place], [address] RDW SD 44.9 fl High 35.1-43.9 [facility] Comment on above: Order Comment: 109.1 Performed By: #### L 100.0100 ####[facility] [address] [place], [address] WBC (Bld) [#/Vol] 7.7 10*3/uL Normal 4.4-11.0 [facility] Comment on above: Order Comment: 109.1 Performed By: #### L 100.0100 ####[facility] [address] [place], [address] CBC W/Diff, Automatedon 09-3 0-2024 Absolute Lymph 2.12 X10 3/uL Normal 0.83-4.51 [facility] Comment on above: Order Comment: 109.1 Performed By: #### L 100.0100 ####[facility] [address] [place], [address] Absolute Neut 5.2 X10 3/uL Normal 2.0-7.7 [facility] Comment on above: Order Comment: 109.1 Performed By: #### L 100.0100 ####[facility] [address] [place], [address] Basophils/100 WBC (Bld) 0.6 % Normal 0-1 [facility] Comment on above: Order Comment: 109.1 Performed By: #### L 100.0100 ####[facility] [address] [place], [address] Eosinophils/100 WBC (Bld) 0.5 % Normal 0-5 [facility] Comment on above: Order Comment: 109.1 Performed By: #### L 100.0100 ####[facility] [address] [place], [address] Erythrocyte distribution width (RBC) [Ratio] 13.2 % Normal 11.6-14.6 [facility] Comment on above: Order Comment: 109.1 Performed By: #### L 100.0100 ####[facility] [address] [place], [address] Hematocrit (Bld) [Volume fraction] 46.0 % Normal 40-54 [facility] Comment on above: Order Comment: 109.1 Performed By: #### L 100.0100 ####[facility] [address] [place], [address] Hemoglobin (Bld) [Mass/Vol] 14.5 g/dL Normal 13.0-16.5 [facility] Comment on above: Order Comment: 109.1 Performed By: #### L 100.0100 ####[facility] [address] [place], [address] IG% 0.200 Normal 0.0-0.9 [facility] Comment on above: Order Comment: 109.1 Result Comment: IG% - Immature Granulocytes (promyelocytes, myelocytes andmetamyelocytes) > 1% indicates that a LEFT SHIFT is Present. Performed By: #### L 100.0100 ####[facility] [address] [place], [address] Lymphocytes/100 WBC (Bld) 25.9 % Normal 19-41 [facility] Comment on above: Order Comment: 109.1 Performed By: #### L 100.0100 ####[facility] [address] [place], [address] MCH (RBC) [Entitic mass] 29.2 pg Normal 27.0-32.0 [facility] Comment on above: Order Comment: 109.1 Performed By: #### L 100.0100 ####[facility] [address] [place], [address] MCHC (RBC) [Mass/Vol] 31.5 g/dL Low 32-36 [facility] Comment on above: Order Comment: 109.1 Performed By: #### L 100.0100 ####[facility] [address] [place], [address] MCV (RBC) [Entitic vol] 92.7 fL Normal 80-94 [facility] Comment on above: Order Comment: 109.1 Performed By: #### L 100.0100 ####[facility] [address] [place], [address] Monocytes/100 WBC (Bld) 9.0 % Normal 0-10 [facility] Comment on above: Order Comment: 109.1 Performed By: #### L 100.0100 ####[facility] [address] [place], [address] Neutrophils/100 WBC (Bld) 63.8 % Normal 47-70 [facility] Comment on above: Order Comment: 109.1 Performed By: #### L 100.0100 ####[facility] [address] [place], [address] Nucleated RBC (Bld) [#/Vol] 0 10*3/uL Normal 0-5 [facility] Comment on above: Order Comment: 109.1 Performed By: #### L 100.0100 ####[facility] [address] [place], [address] Platelet mean volume (Bld) [Entitic vol] 10.9 fL Normal 6.2-12.0 [facility] Comment on above: Order Comment: 109.1 Performed By: #### L 100.0100 ####[facility] [address] [place], [address] Platelets (Bld) [#/Vol] 192 10*3/uL Normal 150-450 [facility] Comment on above: Order Comment: 109.1 Performed By: #### L 100.0100 ####[facility] [address] [place], [address] RBC (Bld) [#/Vol] 4.96 10*6/uL Normal 4.6-6.[address] [facility] Comment on above: Order Comment: 109.1 Performed By: #### L 100.0100 ####[facility] [address] [place], [address] RDW SD 44.6 fl High 35.1-43.9 [facility] Comment on above: Order Comment: 109.1 Performed By: #### L 100.0100 ####[facility] [address] [place], [address] WBC (Bld) [#/Vol] 8.2 10*3/uL Normal 4.4-11.0 [facility] Comment on above: Order Comment: 109.1 Performed By: #### L 100.0100 ####[facility] [address] [place], [address] CBC W/Diff, Automatedon 09-2 -2023 Absolute Lymph 1.62 X10 3/uL Normal 0.83-4.51 [facility] Comment on above: Order Comment: 109-1 Performed By: #### L 100.0100 ####[facility] [address] [place], [address] Absolute Neut 8.1 X10 3/uL High 2.0-7.7 [facility] Comment on above: Order Comment: 109-1 Performed By: #### L 100.0100 ####[facility] [address] [place], [address] Basophils/100 WBC (Bld) 0.4 % Normal 0-1 [facility] Comment on above: Order Comment: 109-1 Performed By: #### L 100.0100 ####[facility] [address] [place], [address] Eosinophils/100 WBC (Bld) 0.1 % Normal 0-5 [facility] Comment on above: Order Comment: 109-1 Performed By: #### L 100.0100 ####[facility] [address] [place], [address] Erythrocyte distribution width (RBC) [Ratio] 12.9 % Normal 11.6-14.6 [facility] Comment on above: Order Comment: 109-1 Performed By: #### L 100.0100 ####[facility] [address] [place], [address] Hematocrit (Bld) [Volume fraction] 41.9 % Normal 40-54 [facility] Comment on above: Order Comment: 109-1 Performed By: #### L 100.0100 ####[facility] [address] [place], [address] Hemoglobin (Bld) [Mass/Vol] 13.5 g/dL Normal 13.0-16.5 [facility] Comment on above: Order Comment: 109-1 Performed By: #### L 100.0100 ####[facility] [address] [place], [address] IG% 0.400 Normal 0.0-0.9 [facility] Comment on above: Order Comment: 109-1 Result Comment: IG% - Immature Granulocytes (promyelocytes, myelocytes andmetamyelocytes) > 1% indicates that a LEFT SHIFT is Present. Performed By: #### L 100.0100 ####[facility] [address] [place], [address] Lymphocytes/100 WBC (Bld) 15.2 % Low 19-41 [facility] Comment on above: Order Comment: 109-1 Performed By: #### L 100.0100 ####[facility] [address] [place], [address] MCH (RBC) [Entitic mass] 29.3 pg Normal 27.0-32.0 [facility] Comment on above: Order Comment: 109-1 Performed By: #### L 100.0100 ####[facility] [address] [place], [address] MCHC (RBC) [Mass/Vol] 32.2 g/dL Normal 32-36 [facility] Comment on above: Order Comment: 109-1 Performed By: #### L 100.0100 ####[facility] [address] [place], [address] MCV (RBC) [Entitic vol] 90.9 fL Normal 80-94 [facility] Comment on above: Order Comment: 109-1 Performed By: #### L 100.0100 ####[facility] [address] [place], [address] Monocytes/100 WBC (Bld) 7.4 % Normal 0-10 [facility] Comment on above: Order Comment: 109-1 Performed By: #### L 100.0100 ####[facility] [address] [place], [address] Neutrophils/100 WBC (Bld) 76.5 % High 47-70 [facility] Comment on above: Order Comment: 109-1 Performed By: #### L 100.0100 ####[facility] [address] [place], [address] Nucleated RBC (Bld) [#/Vol] 0 10*3/uL Normal 0-5 [facility] Comment on above: Order Comment: 109-1 Performed By: #### L 100.0100 ####[facility] [address] [place], [address] Platelet mean volume (Bld) [Entitic vol] 11.2 fL Normal 6.2-12.0 [facility] Comment on above: Order Comment: 109-1 Performed By: #### L 100.0100 ####[facility] [address] [place], [address] Platelets (Bld) [#/Vol] 220 10*3/uL Normal 150-450 [facility] Comment on above: Order Comment: 109-1 Performed By: #### L 100.0100 ####[facility] [address] [place], [address] RBC (Bld) [#/Vol] 4.61 10*6/uL Normal 4.6-6.[address] [facility] Comment on above: Order Comment: 109-1 Performed By: #### L 100.0100 ####[facility] [address] [place], [address] RDW SD 42.1 fl Normal 35.1-43.9 [facility] Comment on above: Order Comment: 109-1 Performed By: #### L 100.0100 ####[facility] [address] [place], [address] WBC (Bld) [#/Vol] 10.6 10*3/uL Normal 4.4-11.[address] [facility] Comment on above: Order Comment: 109-1 Performed By: #### L 100.0100 ####[facility] [address] [place], [address] CBC W/Diff, Automatedon - Absolute Lymph 2.15 X10 3/uL Normal 0.83-4.51 [facility] Comment on above: Order Comment: 109-1 Performed By: #### L 100.0100 ####[facility] [address] [place], [address] Absolute Neut 5.4 X10 3/uL Normal 2.0-7.7 [facility] Comment on above: Order Comment: 109-1 Performed By: #### L 100.0100 ####[facility] [address] [place], [address] Basophils/100 WBC (Bld) 0.7 % Normal 0-1 [facility] Comment on above: Order Comment: 109-1 Performed By: #### L 100.0100 ####[facility] [address] [place], [address] Eosinophils/100 WBC (Bld) 0.7 % Normal 0-5 [facility] Comment on above: Order Comment: 109-1 Performed By: #### L 100.0100 ####[facility] [address] [place], [address] Erythrocyte distribution width (RBC) [Ratio] 13.1 % Normal 11.6-14.6 [facility] Comment on above: Order Comment: 109-1 Performed By: #### L 100.0100 ####[facility] [address] [place], [address] Hematocrit (Bld) [Volume fraction] 44.1 % Normal 40-54 [facility] Comment on above: Order Comment: 109-1 Performed By: #### L 100.0100 ####[facility] [address] [place], [address] Hemoglobin (Bld) [Mass/Vol] 14.2 g/dL Normal 13.0-16.5 [facility] Comment on above: Order Comment: 109-1 Performed By: #### L 100.0100 ####[facility] [facility] [address] [place], [address] IG% 0.400 Normal 0.0-0.9 [facility] Comment on above: Order Comment: 109-1 Result Comment: IG% - Immature Granulocytes (promyelocytes, myelocytes andmetamyelocytes) > 1% indicates that a LEFT SHIFT is Present. Performed By: #### L 100.0100 ####[facility] [address] [place], [address] Lymphocytes/100 WBC (Bld) 25.7 % Normal 19-41 [facility] Comment on above: Order Comment: 109-1 Performed By: #### L 100.0100 ####[facility] [address] [place], [address] MCH (RBC) [Entitic mass] 29.5 pg Normal 27.0-32.0 [facility] Comment on above: Order Comment: 109-1 Performed By: #### L 100.0100 ####[facility] [address] [place], [address] MCHC (RBC) [Mass/Vol] 32.2 g/dL Normal 32-36 [facility] Comment on above: Order Comment: 109-1 Performed By: #### L 100.0100 ####[facility] [address] [place], [address] MCV (RBC) [Entitic vol] 91.7 fL Normal 80-94 [facility] Comment on above: Order Comment: 109-1 Performed By: #### L 100.0100 ####[facility] [address] [place], [address] Monocytes/100 WBC (Bld) 7.5 % Normal 0-10 [facility] Comment on above: Order Comment: 109-1 Performed By: #### L 100.0100 ####[facility] [address] [place], [address] Neutrophils/100 WBC (Bld) 65.0 % Normal 47-70 [facility] Comment on above: Order Comment: 109-1 Performed By: #### L 100.0100 ####[facility] [address] [place], [address] Nucleated RBC (Bld) [#/Vol] 0 10*3/uL Normal 0-5 [facility] Comment on above: Order Comment: 109-1 Performed By: #### L 100.0100 ####[facility] [address] [place], [address] Platelet mean volume (Bld) [Entitic vol] 11.1 fL Normal 6.2-12.0 [facility] Comment on above: Order Comment: 109-1 Performed By: #### L 100.0100 ####[facility] [address] [place], [address] Platelets (Bld) [#/Vol] 200 10*3/uL Normal 150-450 [facility] Comment on above: Order Comment: 109-1 Performed By: #### L 100.0100 ####[facility] [address] [place], [address] RBC (Bld) [#/Vol] 4.81 10*6/uL Normal 4.6-6.[address] [facility] Comment on above: Order Comment: 109-1 Performed By: #### L 100.0100 ####[facility] [address] [place], [address] RDW SD 44.1 fl High 35.1-43.9 [facility] Comment on above: Order Comment: 109-1 Performed By: #### L 100.0100 ####[facility] [address] [place], [address] WBC (Bld) [#/Vol] 8.4 10*3/uL Normal 4.4-11.0 [facility] Comment on above: Order Comment: 109-1 Performed By: #### L 100.0100 ####[facility] [address] [place], [address] CBC W/Diff, Automatedon 09-0 9-4 Absolute Lymph 3.20 X10 3/uL Normal 0.83-4.51 [facility] Comment on above: Order Comment: 109-1 Performed By: #### L 100.0100 ####[facility] [address] [place], [address] Absolute Neut 5.5 X10 3/uL Normal 2.0-7.7 [facility] Comment on above: Order Comment: 109-1 Performed By: #### L 100.0100 ####[facility] [address] [place], [address] Basophils/100 WBC (Bld) 0.5 % Normal 0-1 [facility] Comment on above: Order Comment: 109-1 Performed By: #### L 100.0100 ####[facility] [address] [place], [address] Eosinophils/100 WBC (Bld) 0.6 % Normal 0-5 [facility] Comment on above: Order Comment: 109-1 Performed By: #### L 100.0100 ####[facility] [address] [place], [address] Erythrocyte distribution width (RBC) [Ratio] 13.2 % Normal 11.6-14.6 [facility] Comment on above: Order Comment: 109-1 Performed By: #### L 100.0100 ####[facility] [address] [place], [address] Hematocrit (Bld) [Volume fraction] 44.3 % Normal 40-54 [facility] Comment on above: Order Comment: 109-1 Performed By: #### L 100.0100 ####[facility] [address] [place], [address] Hemoglobin (Bld) [Mass/Vol] 14.4 g/dL Normal 13.0-16.5 [facility] Comment on above: Order Comment: 109-1 Performed By: #### L 100.0100 ####[facility] [address] [place], [address] IG% 0.400 Normal 0.0-0.9 [facility] Comment on above: Order Comment: 109-1 Result Comment: IG% - Immature Granulocytes (promyelocytes, myelocytes andmetamyelocytes) > 1% indicates that a LEFT SHIFT is Present. Performed By: #### L 100.0100 ####[facility] [address] [place], [address] Lymphocytes/100 WBC (Bld) 31.4 % Normal 19-41 [facility] Comment on above: Order Comment: 109-1 Performed By: #### L 100.0100 ####[facility] [address] [place], [address] MCH (RBC) [Entitic mass] 29.8 pg Normal 27.0-32.0 [facility] Comment on above: Order Comment: 109-1 Performed By: #### L 100.0100 ####[facility] [address] [place], [address] MCHC (RBC) [Mass/Vol] 32.5 g/dL Normal 32-36 [facility] Comment on above: Order Comment: 109-1 Performed By: #### L 100.0100 ####[facility] [address] [place], [address] MCV (RBC) [Entitic vol] 91.7 fL Normal 80-94 [facility] Comment on above: Order Comment: 109-1 Performed By: #### L 100.0100 ####[facility] [address] [place], [address] Monocytes/100 WBC (Bld) 12.8 % High 0-10 [facility] Comment on above: Order Comment: 109-1 Performed By: #### L 100.0100 ####[facility] [address] [place], [address] Neutrophils/100 WBC (Bld) 54.3 % Normal 47-70 [facility] Comment on above: Order Comment: 109-1 Performed By: #### L 100.0100 ####[facility] [address] [place], [address] Nucleated RBC (Bld) [#/Vol] 0 10*3/uL Normal 0-5 [facility] Comment on above: Order Comment: 109-1 Performed By: #### L 100.0100 ####[facility] [address] [place], [address] Platelet mean volume (Bld) [Entitic vol] 11.9 fL Normal 6.2-12.0 [facility] Comment on above: Order Comment: 109-1 Performed By: #### L 100.0100 ####[facility] [address] [place], [address] Platelets (Bld) [#/Vol] 187 10*3/uL Normal 150-450 [facility] Comment on above: Order Comment: 109-1 Performed By: #### L 100.0100 ####[facility] [address] [place], [address] RBC (Bld) [#/Vol] 4.83 10*6/uL Normal 4.6-6.[address] [facility] Comment on above: Order Comment: 109-1 Performed By: #### L 100.0100 ####[facility] [address] [place], [address] RDW SD 44.3 fl High 35.1-43.9 [facility] Comment on above: Order Comment: 109-1 Performed By: #### L 100.0100 ####[facility] [address] [place], [address] WBC (Bld) [#/Vol] 10.2 10*3/uL Normal 4.4-11.[address] [facility] Comment on above: Order Comment: 109-1 Performed By: #### L 100.0100 ####[facility] [address] [place], [address] CBC W/Diff, Automatedon 09-0 3-2023 Absolute Lymph 2.57 X10 3/uL Normal 0.83-4.51 [facility] Comment on above: Order Comment: 109-1 Performed By: #### L 100.0100, L500.4100 ####[facility] [address] [place], [address] Absolute Neut 5.9 X10 3/uL Normal 2.0-7.7 [facility] Comment on above: Order Comment: 109-1 Performed By: #### L 100.0100, L500.4100 ####[facility] [address] [place], [address] Basophils/100 WBC (Bld) 0.5 % Normal 0-1 [facility] Comment on above: Order Comment: 109-1 Performed By: #### L 100.0100, L500.4100 ####[facility] [address] [place], [address] Eosinophils/100 WBC (Bld) 0.4 % Normal 0-5 [facility] Comment on above: Order Comment: 109-1 Performed By: #### L 100.0100, L500.4100 ####[facility] [address] [place], [address] Erythrocyte distribution width (RBC) [Ratio] 13.1 % Normal 11.6-14.6 [facility] Comment on above: Order Comment: 109-1 Performed By: #### L 100.0100, L500.4100 ####[facility] [address] [place], [address] Hematocrit (Bld) [Volume fraction] 40.6 % Normal 40-54 [facility] Comment on above: Order Comment: 109-1 Performed By: #### L 100.0100, L500.4100 ####[facility] [address] [place], [address] Hemoglobin (Bld) [Mass/Vol] 13.3 g/dL Normal 13.0-16.5 [facility] Comment on above: Order Comment: 109-1 Performed By: #### L 100.0100, L500.4100 ####[facility] [address] [place], [address] IG% 0.300 Normal 0.0-0.9 [facility] Comment on above: Order Comment: 109-1 Result Comment: IG% - Immature Granulocytes (promyelocytes, myelocytes andmetamyelocytes) > 1% indicates that a LEFT SHIFT is Present. Performed By: #### L 100.0100, L500.4100 ####[facility] [address] [place], [address] Lymphocytes/100 WBC (Bld) 27.0 % Normal 19-41 [facility] Comment on above: Order Comment: 109-1 Performed By: #### L 100.0100, L500.4100 ####[facility] [address] [place], [address] MCH (RBC) [Entitic mass] 30.2 pg Normal 27.0-32.0 [facility] Comment on above: Order Comment: 109-1 Performed By: #### L 100.0100, L500.4100 ####[facility] [address] [place], [address] MCHC (RBC) [Mass/Vol] 32.8 g/dL Normal 32-36 [facility] Comment on above: Order Comment: 109-1 Performed By: #### L 100.0100, L500.4100 ####[facility] [address] [place], [address] MCV (RBC) [Entitic vol] 92.3 fL Normal 80-94 [facility] Comment on above: Order Comment: 109-1 Performed By: #### L 100.0100, L500.4100 ####[facility] [address] [place], [address] Monocytes/100 WBC (Bld) 9.7 % Normal 0-10 [facility] Comment on above: Order Comment: 109-1 Performed By: #### L 100.0100, L500.4100 ####[facility] [address] [place], [address] Neutrophils/100 WBC (Bld) 62.1 % Normal 47-70 [facility] Comment on above: Order Comment: 109-1 Performed By: #### L 100.0100, L500.4100 ####[facility] [address] [place], [address] Nucleated RBC (Bld) [#/Vol] 0 10*3/uL Normal 0-5 [facility] Comment on above: Order Comment: 109-1 Performed By: #### L 100.0100, L500.4100 ####[facility] [address] [place], [address] Platelet mean volume (Bld) [Entitic vol] 12.1 fL High 6.2-12.0 [facility] Comment on above: Order Comment: 109-1 Performed By: #### L 100.0100, L500.4100 ####[facility] [address] [place], [address] Platelets (Bld) [#/Vol] 172 10*3/uL Normal 150-450 [facility] Comment on above: Order Comment: 109-1 Performed By: #### L 100.0100, L500.4100 ####[facility] [address] [place], [address] RBC (Bld) [#/Vol] 4.40 10*6/uL Low 4.6-6.[address] [facility] Comment on above: Order Comment: 109-1 Performed By: #### L 100.0100, L500.4100 ####[facility] [address] [place], [address] RDW SD 44.0 fl High 35.1-43.9 [facility] Comment on above: Order Comment: 109-1 Performed By: #### L 100.0100, L500.4100 ####[facility] [address] [place], [address] WBC (Bld) [#/Vol] 9.5 10*3/uL Normal 4.4-11.0 [facility] Comment on above: Order Comment: 109-1 Performed By: #### L 100.0100, L500.4100 ####[facility] [address] [place], [address] Lipid Profileon 01-02-2024 Cholesterol [Mass/Vol] 115 mg/dL Normal 200 [facility] Comment on above: Order Comment: 109-1 Result Comment: <200 mg/dL Desirable 200-240 mg/dL Borderline >240 mg/dL High Risk Performed By: #### L 100.0100, L500.4100 ####[facility] [address] [place], [address] Cholesterol in HDL [Mass/Vol] 24 mg/dL Low [facility] Comment on above: Order Comment: 109-1 Result Comment: The drugs N-Acetylcysteine and Metamizole may falselydepress this assay. Reference Range HDL <40 mg/dL Low HDL Cholesterol HDL >or= 60 mg/dL High HDL Cholesterol Performed By: #### L 100.0100, L500.4100 ####[facility] [address] [place], [address] Cholesterol in LDL [Mass/Vol] 37 mg/dL Normal 0-130 [facility] Comment on above: Order Comment: 109-1 Performed By: #### L 100.0100, L500.4100 ####[facility] [address] [place], [address] Cholesterol in VLDL [Mass/Vol] 54 mg/dL High 5-40 [facility] Comment on above: Order Comment: 109-1 Performed By: #### L 100.0100, L500.4100 ####[facility] [address] [place], [address] Triglyceride [Mass/Vol] 271 mg/dL High [facility] Comment on above: Order Comment: 109-1 Result Comment: The drugs N-Acetylcysteine and Metamizole may falselydepress this assay.Serum Triglycerides Reference Interval Normal <150 mg/dL Borderline high 150 - 199 mg/dL High 200 - 499 mg/dL Very High > or = 500 mg/dL Performed By: #### L 100.0100, L500.4100 ####[facility] [address] [place], [address] CBC W/Diff, Automatedon 11-30 Absolute Lymph 2.51 X10 3/uL Normal 0.83-4.51 [facility] Comment on above: Order Comment: 109.1 Performed By: #### L 100.0100 ####[facility] [address] [place], [address] Absolute Neut 4.1 X10 3/uL Normal 2.0-7.7 [facility] Comment on above: Order Comment: 109.1 Performed By: #### L 100.0100 ####[facility] [address] [place], [address] Basophils/100 WBC (Bld) 0.5 % Normal 0-1 [facility] Comment on above: Order Comment: 109.1 Performed By: #### L 100.0100 ####[facility] [address] [place], [address] Eosinophils/100 WBC (Bld) 0.8 % Normal 0-5 [facility] Comment on above: Order Comment: 109.1 Performed By: #### L 100.0100 ####[facility] [address] [place], [address] Erythrocyte distribution width (RBC) [Ratio] 13.1 % Normal 11.6-14.6 [facility] Comment on above: Order Comment: 109.1 Performed By: #### L 100.0100 ####[facility] [address] [place], [address] Hematocrit (Bld) [Volume fraction] 40.5 % Normal 40-54 [facility] Comment on above: Order Comment: 109.1 Performed By: #### L 100.0100 ####[facility] [address] [place], [address] Hemoglobin (Bld) [Mass/Vol] 12.9 g/dL Low 13.0-16.5 [facility] Comment on above: Order Comment: 109.1 Performed By: #### L 100.0100 ####[facility] [address] [place], [address] IG% 0.400 Normal 0.0-0.9 [facility] Comment on above: Order Comment: 109.1 Result Comment: IG% - Immature Granulocytes (promyelocytes, myelocytes andmetamyelocytes) > 1% indicates that a LEFT SHIFT is Present. Performed By: #### L 100.0100 ####[facility] [address] [place], [address] Lymphocytes/100 WBC (Bld) 33.5 % Normal 19-41 [facility] Comment on above: Order Comment: 109.1 Performed By: #### L 100.0100 ####[facility] [address] [place], [address] MCH (RBC) [Entitic mass] 29.3 pg Normal 27.0-32.0 [facility] Comment on above: Order Comment: 109.1 Performed By: #### L 100.0100 ####[facility] [address] [place], [address] MCHC (RBC) [Mass/Vol] 31.9 g/dL Low 32-36 [facility] Comment on above: Order Comment: 109.1 Performed By: #### L 100.0100 ####[facility] [address] [place], [address] MCV (RBC) [Entitic vol] 92.0 fL Normal 80-94 [facility] Comment on above: Order Comment: 109.1 Performed By: #### L 100.0100 ####[facility] [address] [place], [address] Monocytes/100 WBC (Bld) 10.7 % High 0-10 [facility] Comment on above: Order Comment: 109.1 Performed By: #### L 100.0100 ####[facility] [address] [place], [address] Neutrophils/100 WBC (Bld) 54.1 % Normal 47-70 [facility] Comment on above: Order Comment: 109.1 Performed By: #### L 100.0100 ####[facility] [address] [place], [address] Nucleated RBC (Bld) [#/Vol] 0 10*3/uL Normal 0-5 [facility] Comment on above: Order Comment: 109.1 Performed By: #### L 100.0100 ####[facility] [address] [place], [address] Platelet mean volume (Bld) [Entitic vol] 10.8 fL Normal 6.2-12.0 [facility] Comment on above: Order Comment: 109.1 Performed By: #### L 100.0100 ####[facility] [address] [place], [address] Platelets (Bld) [#/Vol] 193 10*3/uL Normal 150-450 [facility] Comment on above: Order Comment: 109.1 Performed By: #### L 100.0100 ####[facility] [address] [place], [address] RBC (Bld) [#/Vol] 4.40 10*6/uL Low 4.6-6.[address] [facility] Comment on above: Order Comment: 109.1 Performed By: #### L 100.0100 ####[facility] [address] [place], [address] RDW SD 44.0 fl High 35.1-43.9 [facility] Comment on above: Order Comment: 109.1 Performed By: #### L 100.0100 ####[facility] [address] [place], [address] WBC (Bld) [#/Vol] 7.5 10*3/uL Normal 4.4-11.0 [facility] Comment on above: Order Comment: 109.1 Performed By: #### L 100.0100 ####[facility] [address] [place], [address] CBC W/Diff, Automatedon 08- Absolute Lymph 2.38 X10 3/uL Normal 0.83-4.51 [facility] Comment on above: Order Comment: 109-1 Performed By: #### L 100.0100 ####[facility] [address] [place], [address] Absolute Neut 5.2 X10 3/uL Normal 2.0-7.7 [facility] Comment on above: Order Comment: 109-1 Performed By: #### L 100.0100 ####[facility] [address] [place], [address] Basophils/100 WBC (Bld) 0.4 % Normal 0-1 [facility] Comment on above: Order Comment: 109-1 Performed By: #### L 100.0100 ####[facility] [address] [place], [address] Eosinophils/100 WBC (Bld) 0.7 % Normal 0-5 [facility] Comment on above: Order Comment: 109-1 Performed By: #### L 100.0100 ####[facility] [address] [place], [address] Erythrocyte distribution width (RBC) [Ratio] 12.8 % Normal 11.6-14.6 [facility] Comment on above: Order Comment: 109-1 Performed By: #### L 100.0100 ####[facility] [address] [place], [address] Hematocrit (Bld) [Volume fraction] 48.0 % Normal 40-54 [facility] Comment on above: Order Comment: 109-1 Performed By: #### L 100.0100 ####[facility] [address] [place], [address] Hemoglobin (Bld) [Mass/Vol] 15.3 g/dL Normal 13.0-16.5 [facility] Comment on above: Order Comment: 109-1 Performed By: #### L 100.0100 ####[facility] [address] [place], [address] IG% 0.200 Normal 0.0-0.9 [facility] Comment on above: Order Comment: 109-1 Result Comment: IG% - Immature Granulocytes (promyelocytes, myelocytes andmetamyelocytes) > 1% indicates that a LEFT SHIFT is Present. Performed By: #### L 100.0100 ####[facility] [address] [place], [address] Lymphocytes/100 WBC (Bld) 28.5 % Normal 19-41 [facility] Comment on above: Order Comment: 109-1 Performed By: #### L 100.0100 ####[facility] [address] [place], [address] MCH (RBC) [Entitic mass] 29.4 pg Normal 27.0-32.0 [facility] Comment on above: Order Comment: 109-1 Performed By: #### L 100.0100 ####[facility] [address] [place], [address] MCHC (RBC) [Mass/Vol] 31.9 g/dL Low 32-36 [facility] Comment on above: Order Comment: 109-1 Performed By: #### L 100.0100 ####[facility] [address] [place], [address] MCV (RBC) [Entitic vol] 92.3 fL Normal 80-94 [facility] Comment on above: Order Comment: 109-1 Performed By: #### L 100.0100 ####[facility] [address] [place], [address] Monocytes/100 WBC (Bld) 8.4 % Normal 0-10 [facility] Comment on above: Order Comment: 109-1 Performed By: #### L 100.0100 ####[facility] [address] [place], [address] Neutrophils/100 WBC (Bld) 61.8 % Normal 47-70 [facility] Comment on above: Order Comment: 109-1 Performed By: #### L 100.0100 ####[facility] [address] [place], [address] Nucleated RBC (Bld) [#/Vol] 0 10*3/uL Normal 0-5 [facility] Comment on above: Order Comment: 109-1 Performed By: #### L 100.0100 ####[facility] [address] [place], [address] Platelet mean volume (Bld) [Entitic vol] 11.6 fL Normal 6.2-12.0 [facility] Comment on above: Order Comment: 109-1 Performed By: #### L 100.0100 ####[facility] [address] [place], [address] Platelets (Bld) [#/Vol] 183 10*3/uL Normal 150-450 [facility] Comment on above: Order Comment: 109-1 Performed By: #### L 100.0100 ####[facility] [address] [place], [address] RBC (Bld) [#/Vol] 5.20 10*6/uL Normal 4.6-6.[address] [facility] Comment on above: Order Comment: 109-1 Performed By: #### L 100.0100 ####[facility] [address] [place], [address] RDW SD 43.5 fl Normal 35.1-43.9 [facility] Comment on above: Order Comment: 109-1 Performed By: #### L 100.0100 ####[facility] [address] [place], [address] WBC (Bld) [#/Vol] 8.3 10*3/uL Normal 4.4-11.0 [facility] Comment on above: Order Comment: 109-1 Performed By: #### L 100.0100 ####[facility] [facility] [address] [place], [address] CBC W/Diff, Automatedon 11-29 Absolute Lymph 2.03 X10 3/uL Normal 0.83-4.51 [facility] Comment on above: Order Comment: 109-1 Performed By: #### L 100.0100 ####[facility] [address] [place], [address] Absolute Neut 5.7 X10 3/uL Normal 2.0-7.7 [facility] Comment on above: Order Comment: 109-1 Performed By: #### L 100.0100 ####[facility] [address] [place], [address] Basophils/100 WBC (Bld) 0.6 % Normal 0-1 [facility] Comment on above: Order Comment: 109-1 Performed By: #### L 100.0100 ####[facility] [address] [place], [address] Eosinophils/100 WBC (Bld) 0.6 % Normal 0-5 [facility] Comment on above: Order Comment: 109-1 Performed By: #### L 100.0100 ####[facility] [address] [place], [address] Erythrocyte distribution width (RBC) [Ratio] 12.8 % Normal 11.6-14.6 [facility] Comment on above: Order Comment: 109-1 Performed By: #### L 100.0100 ####[facility] [address] [place], [address] Hematocrit (Bld) [Volume fraction] 39.9 % Low 40-54 [facility] Comment on above: Order Comment: 109-1 Performed By: #### L 100.0100 ####[facility] [address] [place], [address] Hemoglobin (Bld) [Mass/Vol] 12.8 g/dL Low 13.0-16.5 [facility] Comment on above: Order Comment: 109-1 Performed By: #### L 100.0100 ####[facility] [address] [place], [address] IG% 0.400 Normal 0.0-0.9 [facility] Comment on above: Order Comment: 109-1 Result Comment: IG% - Immature Granulocytes (promyelocytes, myelocytes andmetamyelocytes) > 1% indicates that a LEFT SHIFT is Present. Performed By: #### L 100.0100 ####[facility] [address] [place], [address] Lymphocytes/100 WBC (Bld) 23.9 % Normal 19-41 [facility] Comment on above: Order Comment: 109-1 Performed By: #### L 100.0100 ####[facility] [address] [place], [address] MCH (RBC) [Entitic mass] 29.4 pg Normal 27.0-32.0 [facility] Comment on above: Order Comment: 109-1 Performed By: #### L 100.0100 ####[facility] [address] [place], [address] MCHC (RBC) [Mass/Vol] 32.1 g/dL Normal 32-36 [facility] Comment on above: Order Comment: 109-1 Performed By: #### L 100.0100 ####[facility] [address] [place], [address] MCV (RBC) [Entitic vol] 91.7 fL Normal 80-94 [facility] Comment on above: Order Comment: 109-1 Performed By: #### L 100.0100 ####[facility] [address] [place], [address] Monocytes/100 WBC (Bld) 7.8 % Normal 0-10 [facility] Comment on above: Order Comment: 109-1 Performed By: #### L 100.0100 ####[facility] [address] [place], [address] Neutrophils/100 WBC (Bld) 66.7 % Normal 47-70 [facility] Comment on above: Order Comment: 109-1 Performed By: #### L 100.0100 ####[facility] [address] [place], [address] Nucleated RBC (Bld) [#/Vol] 0 10*3/uL Normal 0-5 [facility] Comment on above: Order Comment: 109-1 Performed By: #### L 100.0100 ####[facility] [address] [place], [address] Platelet mean volume (Bld) [Entitic vol] 11.1 fL Normal 6.2-12.0 [facility] Comment on above: Order Comment: 109-1 Performed By: #### L 100.0100 ####[facility] [address] [place], [address] Platelets (Bld) [#/Vol] 204 10*3/uL Normal 150-450 [facility] Comment on above: Order Comment: 109-1 Performed By: #### L 100.0100 ####[facility] [address] [place], [address] RBC (Bld) [#/Vol] 4.35 10*6/uL Low 4.6-6.[address] [facility] Comment on above: Order Comment: 109-1 Performed By: #### L 100.0100 ####[facility] [address] [place], [address] RDW SD 43.2 fl Normal 35.1-43.9 [facility] Comment on above: Order Comment: 109-1 Performed By: #### L 100.0100 ####[facility] [address] [place], [address] WBC (Bld) [#/Vol] 8.5 10*3/uL Normal 4.4-11.0 [facility] Comment on above: Order Comment: 109-1 Performed By: #### L 100.0100 ####[facility] [address] [place], [address] CBC-Complete Blood Cnt No Di ffon 12-04-2023 Erythrocyte distribution width (RBC) [Ratio] 12.8 % Normal 11.6-14.6 [facility] Comment on above: Order Comment: 109.1 Performed By: #### L 100.0500 ####[facility] [address] [place], [address] Hematocrit (Bld) [Volume fraction] 41.0 % Normal 40-54 [facility] Comment on above: Order Comment: 109.1 Performed By: #### L 100.0500 ####[facility] [address] [place], [address] Hemoglobin (Bld) [Mass/Vol] 13.4 g/dL Normal 13.0-16.5 [facility] Comment on above: Order Comment: 109.1 Performed By: #### L 100.0500 ####[facility] [address] [place], [address] MCH (RBC) [Entitic mass] 30.0 pg Normal 27.0-32.0 [facility] Comment on above: Order Comment: 109.1 Performed By: #### L 100.0500 ####[facility] [address] [place], [address] MCHC (RBC) [Mass/Vol] 32.7 g/dL Normal 32-36 [facility] Comment on above: Order Comment: 109.1 Performed By: #### L 100.0500 ####[facility] [address] [place], [address] MCV (RBC) [Entitic vol] 91.7 fL Normal 80-94 [facility] Comment on above: Order Comment: 109.1 Performed By: #### L 100.0500 ####[facility] [address] [place], [address] Platelet mean volume (Bld) [Entitic vol] 10.8 fL Normal 6.2-12.0 [facility] Comment on above: Order Comment: 109.1 Performed By: #### L 100.0500 ####[facility] [address] [place], [address] Platelets (Bld) [#/Vol] 219 10*3/uL Normal 150-450 [facility] Comment on above: Order Comment: 109.1 Performed By: #### L 100.0500 ####[facility] [address] [place], [address] RBC (Bld) [#/Vol] 4.47 10*6/uL Low 4.6-6.[address] [facility] Comment on above: Order Comment: 109.1 Performed By: #### L 100.0500 ####[facility] [address] [place], [address] RDW SD 43.0 fl Normal 35.1-43.9 [facility] Comment on above: Order Comment: 109.1 Performed By: #### L 100.0500 ####[facility] [address] [place], [address] WBC (Bld) [#/Vol] 7.6 10*3/uL Normal 4.4-11.0 [facility] Comment on above: Order Comment: 109.1 Performed By: #### L 100.0500 ####[facility] [address] [place], [address] CBC W/Diff, Automatedon 07-2 Absolute Lymph 1.72 X10 3/uL Normal 0.83-4.51 [facility] Comment on above: Order Comment: 109.1 Performed By: #### L 100.0100 ####[facility] [address] [place], [address] Absolute Neut 4.3 X10 3/uL Normal 2.0-7.7 [facility] Comment on above: Order Comment: 109.1 Performed By: #### L 100.0100 ####[facility] [address] [place], [address] Basophils/100 WBC (Bld) 0.4 % Normal 0-1 [facility] Comment on above: Order Comment: 109.1 Performed By: #### L 100.0100 ####[facility] [address] [place], [address] Eosinophils/100 WBC (Bld) 0.6 % Normal 0-5 [facility] Comment on above: Order Comment: 109.1 Performed By: #### L 100.0100 ####[facility] [address] [place], [address] Erythrocyte distribution width (RBC) [Ratio] 13.0 % Normal 11.6-14.6 [facility] Comment on above: Order Comment: 109.1 Performed By: #### L 100.0100 ####[facility] [address] [place], [address] Hematocrit (Bld) [Volume fraction] 40.8 % Normal 40-54 [facility] Comment on above: Order Comment: 109.1 Performed By: #### L 100.0100 ####[facility] [address] [place], [address] Hemoglobin (Bld) [Mass/Vol] 13.2 g/dL Normal 13.0-16.5 [facility] Comment on above: Order Comment: 109.1 Performed By: #### L 100.0100 ####[facility] [address] [place], [address] IG% 0.300 Normal 0.0-0.9 [facility] Comment on above: Order Comment: 109.1 Result Comment: IG% - Immature Granulocytes (promyelocytes, myelocytes andmetamyelocytes) > 1% indicates that a LEFT SHIFT is Present. Performed By: #### L 100.0100 ####[facility] [address] [place], [address] Lymphocytes/100 WBC (Bld) 25.8 % Normal 19-41 [facility] Comment on above: Order Comment: 109.1 Performed By: #### L 100.0100 ####[facility] [address] [place], [address] MCH (RBC) [Entitic mass] 29.7 pg Normal 27.0-32.0 [facility] Comment on above: Order Comment: 109.1 Performed By: #### L 100.0100 ####[facility] [address] [place], [address] MCHC (RBC) [Mass/Vol] 32.4 g/dL Normal 32-36 [facility] Comment on above: Order Comment: 109.1 Performed By: #### L 100.0100 ####[facility] [address] [place], [address] MCV (RBC) [Entitic vol] 91.7 fL Normal 80-94 [facility] Comment on above: Order Comment: 109.1 Performed By: #### L 100.0100 ####[facility] [address] [place], [address] Monocytes/100 WBC (Bld) 9.0 % Normal 0-10 [facility] Comment on above: Order Comment: 109.1 Performed By: #### L 100.0100 ####[facility] [address] [place], [address] Neutrophils/100 WBC (Bld) 63.9 % Normal 47-70 [facility] Comment on above: Order Comment: 109.1 Performed By: #### L 100.0100 ####[facility] [address] [place], [address] Nucleated RBC (Bld) [#/Vol] 0 10*3/uL Normal 0-5 [facility] Comment on above: Order Comment: 109.1 Performed By: #### L 100.0100 ####[facility] [address] [place], [address] Platelet mean volume (Bld) [Entitic vol] 11.0 fL Normal 6.2-12.0 [facility] Comment on above: Order Comment: 109.1 Performed By: #### L 100.0100 ####[facility] [address] [place], [address] Platelets (Bld) [#/Vol] 196 10*3/uL Normal 150-450 [facility] Comment on above: Order Comment: 109.1 Performed By: #### L 100.0100 ####[facility] [address] [place], [address] RBC (Bld) [#/Vol] 4.45 10*6/uL Low 4.6-6.[address] [facility] Comment on above: Order Comment: 109.1 Performed By: #### L 100.0100 ####[facility] [address] [place], [address] RDW SD 43.5 fl Normal 35.1-43.9 [facility] Comment on above: Order Comment: 109.1 Performed By: #### L 100.0100 ####[facility] [address] [place], [address] WBC (Bld) [#/Vol] 6.7 10*3/uL Normal 4.4-11.0 [facility] Comment on above: Order Comment: 109.1 Performed By: #### L 100.0100 ####[facility] [address] [place], [address] Progress Noteon 11-22-2023 Progress Note Speech-Language Pathology SPEECH LANGUAGE PATHOLOGY [facility] Modified Barium Swallow Study Patient Name: Kathya Hooper Evaluation Date: 11/22/2023 Date of : 1955 Admission Date: 11/22/2023 11:30 AM Age: 68 y.o. Room/Bed: Room/bed info not found IMPRESSION: The patient presents with mild oral phase dysphagia associated with reduced oral bolus control. There is moderate - marked pharyngeal phase dysphagia associated with and base of tongue weakness, pharyngeal wall weakness, incomplete epiglottic deflection, cervical osteophytes, and reduced hyoid trajectory. +vocal cord penetration with thin, mildly thick and pudding textures. Trace to mild accumulation/aspirati on and anterior tracheal coating. Cough response to initial vocal cord penetration. Cued cough to attempt clearing aspiration without success. RECOMMENDATION: (pt verbalized desire to continue po intake) Recommend NPO but if continue po for comfort and pleasure-Puree with thin liquid and meds non-oral and the following precautions: - Upright positioning for all PO intake - Slow rate of intake - Small bites/sips - No straws - Alternate solid and liquids - Consistent mouth care - Multiple swallow and alternate liquids after solids. --Monitor for clinical s/s aspiration pneumonia Penetration-Aspiratio n Scale: 7. Contrast enters the airway, crosses the plane of the vocal folds, and is not ejected from the airway despite effort. Pt may benefit from skilled COMFORT ADVISOR services to address: Anterior hyoid movement (difficult d/t cervical fusion C2-C6; pressure generation, cough strengthening (EMST). Frequency: Per treating COMFORT ADVISOR Barriers: large osteophytes, bridging with anterior projection to posterior pharyngeal wall C2-C6 (restricting epiglottic deflection) Prognosis: fair D/C Recommendations: Ongoing ST at current level of care. General Initial MBS completed to assess the efficiency of his swallow function, rule out aspiration, and make recommendations regarding safe dietary consistencies, effective compensatory strategies, and safe eating environment. Subjective: Radiologist: Dr. Nir Cancino/IONA Jang Prior MBSS?: No, unable to locate in [facility] Current Diet: Puree diet with ?liquid (no information from [place]) Textures tested: - thin liquid, (cup edge) - mildly thick liquid, (cup edge) - puree, (teaspoon) Patient position: lateral Past Medical History: Past Medical History: Diagnosis Date TREVER (acute kidney injury) ([facility]) ([facility]) Alcohol abuse 07/08/2018 Anxiety C1 spinal cord injury ([facility]) ([facility]) Depression Fall 06/2018 Schizophrenia ([facility]) Past Surgical History: Past Surgical History: Procedure Laterality Date CERVICAL FUSION 07/09/2014 C2-6 cervical fusion GASTROSTOMY TUBE PLACEMENT 07/13/2018 TRACHEOSTOMY 07/13/2018 Admission Diagnosis: Patient Active Problem List Diagnosis Date Noted Respiratory syncytial virus (RSV) 03/22/2021 Hypoxia 03/19/2021 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[facility]) ([facility]) 08/16/2018 Chronic latent schizophrenia ([facility]) 08/15/2018 Prolonged Q-T interval on ECG 08/15/2018 Abdominal wall abscess 08/15/2018 Central cord syndrome ([facility]) ([facility]) 08/15/2018 Respiratory failure after trauma ([facility]) 08/15/2018 Pressure ulcer of sacral region, stage 2 ([facility]) 08/09/2018 Urinary retention 07/28/2018 Acute respiratory failure with hypoxia ([facility]) 07/26/2018 Mild bibasilar atelectasis 07/26/2018 Hospital-acquired pneumonia 07/26/2018 Bilateral pleural effusion 07/26/2018 Ileus ([facility]) ([facility]) 07/23/2018 TREVER (acute kidney injury) ([facility]) 07/23/2018 Hypokalemia 07/21/2018 Vertebral artery occlusion, bilateral 07/11/2018 Vitamin D insufficiency 07/10/2018 Alcohol abuse 07/08/2018 Closed wedge compression fracture of first thoracic vertebra ([facility]) 07/08/2018 Traumatic nondisp spondylolisthesis of C3 vertebra with closed fx, initial encounter ([facility]) 07/08/2018 Closed fracture dislocation of cervical spine ([facility]) 07/08/2018 Pain: Pt denies any current pain. Reason for current admission: Pt with h/o of PEG and trach from 2019. Pt is currently decannulated. 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 Noted very large connective osteophytes on the cervical spine that correlates with fusion. Oral Phase Very mild oral deficits with mild spillage to the vallecula prior to swallowing. No significant oral residuals after the swallow noted. Coating of base of tongue only noted. Pharyngeal Phase Pt without full epiglottic deflection, poor anterior trajectory of hyoid, reduced pressure generation and pharyngeal clearing (suspect some reduction in base of tongue and pharyngeal wall constriction d/t residuals). Mild to moderate residuals remain after swallow in vallecula and severe-marked in piriform-with liquids (thin,mildly thick); pt is able to clear to mild amount after re-swallows. +vocal cord penetration due to posterior spill (more content not included)... Normal [facility] RF videography Hypopharynx a nd Esophagus Views for swallowing function W speech and W barium contrast Rosalino 11-22-2023 Abnormal findings as described above. Please refer to the speech pathologist 's report for additional details and recommendations. Report Dictated on Electronically Signed By: Nir Cancino MD Electronically Signed Date/Time: 11/22/2023 1:57 PM EDT [facility] Patient Name: KATHYA HOOPER : 1955 Exam Date/Time: 11/22/2023 12:53 Procedure: FL MODIFIED BARIUM WITH VIDEO AND SPEECH Ordering Provider: BURGOS PETER Reason For Exam: r13.12, r63.3 MODIFIED BARIUM SWALLOW (COOKIE SWALLOW) History: Dysphagia. Aspiration. Wet voice. Fluoroscopy dose: Ka,r = 37.3 mGy Technique: The exam was performed under fluoroscopy with video recording. Barium mixtures of various consistencies was used. Findings: In the preparatory phase of swallowing, decreased cognition noted. The oral phase shows coating of the tongue base and spillage to the valleculae. The pharyngeal phase shows reduced epiglottic deflection, decreased laryngeal elevation, weakness of the tongue base and pharyngeal wall, coating of the pharyngeal will with vallecular and piriform residuals. There is coating of the back of the epiglottis, vocal cord penetration and also airway aspiration of small amount of barium after swallow with cough response. There is limited visualization of posterior cervical spine hardware fusion and small anterior vertebral osteophytes. The esophagus is not visualized in this exam for evaluation. [facility] Nir Cancino MD - 11/22/2023 Patient Name: KATHYA HOOPER : 1955 Exam Date/Time: 11/22/2023 12:53 Procedure: FL MODIFIED BARIUM WITH VIDEO AND SPEECH Ordering Provider: BURGOS PETER Reason For Exam: r13.12, r63.3 MODIFIED BARIUM SWALLOW (COOKIE SWALLOW) History: Dysphagia. Aspiration. Wet voice. Fluoroscopy dose: Ka,r = 37.3 mGy Technique: The exam was performed under fluoroscopy with video recording. Barium mixtures of various consistencies was used. Findings: In the preparatory phase of swallowing, decreased cognition noted. The oral phase shows coating of the tongue base and spillage to the valleculae. The pharyngeal phase shows reduced epiglottic deflection, decreased laryngeal elevation, weakness of the tongue base and pharyngeal wall, coating of the pharyngeal will with vallecular and piriform residuals. There is coating of the back of the epiglottis, vocal cord penetration and also airway aspiration of small amount of barium after swallow with cough response. There is limited visualization of posterior cervical spine hardware fusion and small anterior vertebral osteophytes. The esophagus is not visualized in this exam for evaluation. IMPRESSION: Abnormal findings as described above. Please refer to the speech pathologist 's report for additional details and recommendations. Report Dictated on Electronically Signed By: Nir Cancino MD Electronically Signed Date/Time: 11/22/2023 1:57 PM EDT [facility] Radiology Study observation (narrative) [facility] alth RF videography Hypopharynx a nd Esophagus Views for swallowing function W speech and W barium contrast POOrdered By: Nir Cancino on 11-22-2023 [facility] Work Phone: CBC W/Diff, Automatedon 10-30 Absolute Lymph 2.24 X10 3/uL Normal 0.83-4.51 [facility] Comment on above: Order Comment: 109-1 Performed By: #### L 100.0100 ####[facility] [address] [place], [address] Absolute Neut 5.7 X10 3/uL Normal 2.0-7.7 [facility] Comment on above: Order Comment: 109-1 Performed By: #### L 100.0100 ####[facility] [address] [place], [address] Basophils/100 WBC (Bld) 0.6 % Normal 0-1 [facility] Comment on above: Order Comment: 109-1 Performed By: #### L 100.0100 ####[facility] [address] [place], [address] Eosinophils/100 WBC (Bld) 0.5 % Normal 0-5 [facility] Comment on above: Order Comment: 109-1 Performed By: #### L 100.0100 ####[facility] [address] [place], [address] Erythrocyte distribution width (RBC) [Ratio] 13.1 % Normal 11.6-14.6 [facility] Comment on above: Order Comment: 109-1 Performed By: #### L 100.0100 ####[facility] [address] [place], [address] Hematocrit (Bld) [Volume fraction] 41.5 % Normal 40-54 [facility] Comment on above: Order Comment: 109-1 Performed By: #### L 100.0100 ####[facility] [address] [place], [address] Hemoglobin (Bld) [Mass/Vol] 13.6 g/dL Normal 13.0-16.5 [facility] Comment on above: Order Comment: 109-1 Performed By: #### L 100.0100 ####[facility] [address] [place], [address] IG% 0.200 Normal 0.0-0.9 [facility] Comment on above: Order Comment: 109-1 Result Comment: IG% - Immature Granulocytes (promyelocytes, myelocytes andmetamyelocytes) > 1% indicates that a LEFT SHIFT is Present. Performed By: #### L 100.0100 ####[facility] [address] [place], [address] Lymphocytes/100 WBC (Bld) 25.5 % Normal 19-41 [facility] Comment on above: Order Comment: 109-1 Performed By: #### L 100.0100 ####[facility] [address] [place], [address] MCH (RBC) [Entitic mass] 30.0 pg Normal 27.0-32.0 [facility] Comment on above: Order Comment: 109-1 Performed By: #### L 100.0100 ####[facility] [address] [place], [address] MCHC (RBC) [Mass/Vol] 32.8 g/dL Normal 32-36 [facility] Comment on above: Order Comment: 109-1 Performed By: #### L 100.0100 ####[facility] [address] [place], [address] MCV (RBC) [Entitic vol] 91.4 fL Normal 80-94 [facility] Comment on above: Order Comment: 109-1 Performed By: #### L 100.0100 ####[facility] [address] [place], [address] Monocytes/100 WBC (Bld) 8.0 % Normal 0-10 [facility] Comment on above: Order Comment: 109-1 Performed By: #### L 100.0100 ####[facility] [address] [place], [address] Neutrophils/100 WBC (Bld) 65.2 % Normal 47-70 [facility] Comment on above: Order Comment: 109-1 Performed By: #### L 100.0100 ####[facility] [address] [place], [address] Nucleated RBC (Bld) [#/Vol] 0 10*3/uL Normal 0-5 [facility] Comment on above: Order Comment: 109-1 Performed By: #### L 100.0100 ####[facility] [address] [place], [address] Platelet mean volume (Bld) [Entitic vol] 11.5 fL Normal 6.2-12.0 [facility] Comment on above: Order Comment: 109-1 Performed By: #### L 100.0100 ####[facility] [address] [place], [address] Platelets (Bld) [#/Vol] 190 10*3/uL Normal 150-450 [facility] Comment on above: Order Comment: 109-1 Performed By: #### L 100.0100 ####[facility] [address] [place], [address] RBC (Bld) [#/Vol] 4.54 10*6/uL Low 4.6-6.[address] [facility] Comment on above: Order Comment: 109-1 Performed By: #### L 100.0100 ####[facility] [address] [place], [address] RDW SD 43.3 fl Normal 35.1-43.9 [facility] Comment on above: Order Comment: 109-1 Performed By: #### L 100.0100 ####[facility] [address] [place], [address] WBC (Bld) [#/Vol] 8.8 10*3/uL Normal 4.4-11.0 [facility] Comment on above: Order Comment: 109-1 Performed By: #### L 100.0100 ####[facility] [address] [place], [address] Urine Cultureon 11-15-2023 [facility] Culture exhibits no growth. Normal [facility] Comment on above: Performed By: #### M 100.2200, L400.0001 ####[facility] [address] [place], [address] Urinalysis, Completeon 11-13 RBC 0-5 SEEN Normal 0-5 [facility] Comment on above: Order Comment: CLEAN CATCH Performed By: #### M 100.2200, L400.0001 ####[facility] [address] [place], [address] WBC 0-5 SEEN Normal 0-5 [facility] Comment on above: Order Comment: CLEAN CATCH Performed By: #### M 100.2200, L400.0001 ####[facility] [address] [place], [address] BACTERIA 0 SEEN Normal None Seen [facility] Comment on above: Order Comment: CLEAN CATCH Performed By: #### M 100.2200, L400.0001 ####[facility] [address] [place], [address] EPI,SQUAMOUS 0 SEEN Normal 0-5 [facility] Comment on above: Order Comment: CLEAN CATCH Performed By: #### M 100.2200, L400.0001 ####[facility] [address] [place], [address] Mucus Ql (Urine sed) 0 SEEN Normal [facility] Comment on above: Order Comment: CLEAN CATCH Performed By: #### M 100.2200, L400.0001 ####[facility] [address] [place], [address] CBC W/Diff, Automatedon 10-29 Absolute Lymph 2.72 X10 3/uL Normal 0.83-4.51 [facility] Comment on above: Order Comment: 109-1 Performed By: #### L 100.0100 ####[facility] [address] [place], [address] Absolute Neut 8.2 X10 3/uL High 2.0-7.7 [facility] Comment on above: Order Comment: 109-1 Performed By: #### L 100.0100 ####[facility] [address] [place], [address] Basophils/100 WBC (Bld) 0.5 % Normal 0-1 [facility] Comment on above: Order Comment: 109-1 Performed By: #### L 100.0100 ####[facility] [address] [place], [address] Eosinophils/100 WBC (Bld) 0.3 % Normal 0-5 [facility] Comment on above: Order Comment: 109-1 Performed By: #### L 100.0100 ####[facility] [address] [place], [address] Erythrocyte distribution width (RBC) [Ratio] 12.9 % Normal 11.6-14.6 [facility] Comment on above: Order Comment: 109-1 Performed By: #### L 100.0100 ####[facility] [address] [place], [address] Hematocrit (Bld) [Volume fraction] 43.6 % Normal 40-54 [facility] Comment on above: Order Comment: 109-1 Performed By: #### L 100.0100 ####[facility] [address] [place], [address] Hemoglobin (Bld) [Mass/Vol] 14.0 g/dL Normal 13.0-16.5 [facility] Comment on above: Order Comment: 109-1 Performed By: #### L 100.0100 ####[facility] [address] [place], [address] IG% 0.400 Normal 0.0-0.9 [facility] Comment on above: Order Comment: 109-1 Result Comment: IG% - Immature Granulocytes (promyelocytes, myelocytes andmetamyelocytes) > 1% indicates that a LEFT SHIFT is Present. Performed By: #### L 100.0100 ####[facility] [address] [place], [address] Lymphocytes/100 WBC (Bld) 23.2 % Normal 19-41 [facility] Comment on above: Order Comment: 109-1 Performed By: #### L 100.0100 ####[facility] [address] [place], [address] MCH (RBC) [Entitic mass] 29.9 pg Normal 27.0-32.0 [facility] Comment on above: Order Comment: 109-1 Performed By: #### L 100.0100 ####[facility] [address] [place], [address] MCHC (RBC) [Mass/Vol] 32.1 g/dL Normal 32-36 [facility] Comment on above: Order Comment: 109-1 Performed By: #### L 100.0100 ####[facility] [address] [place], [address] MCV (RBC) [Entitic vol] 93.0 fL Normal 80-94 [facility] Comment on above: Order Comment: 109-1 Performed By: #### L 100.0100 ####[facility] [address] [place], [address] Monocytes/100 WBC (Bld) 5.8 % Normal 0-10 [facility] Comment on above: Order Comment: 109-1 Performed By: #### L 100.0100 ####[facility] [address] [place], [address] Neutrophils/100 WBC (Bld) 69.8 % Normal 47-70 [facility] Comment on above: Order Comment: 109-1 Performed By: #### L 100.0100 ####[facility] [address] [place], [address] Nucleated RBC (Bld) [#/Vol] 0 10*3/uL Normal 0-5 [facility] Comment on above: Order Comment: 109-1 Performed By: #### L 100.0100 ####[facility] [address] [place], [address] Platelet mean volume (Bld) [Entitic vol] 11.2 fL Normal 6.2-12.0 [facility] Comment on above: Order Comment: 109-1 Performed By: #### L 100.0100 ####[facility] [address] [place], [address] Platelets (Bld) [#/Vol] 207 10*3/uL Normal 150-450 [facility] Comment on above: Order Comment: 109-1 Performed By: #### L 100.0100 ####[facility] [address] [place], [address] RBC (Bld) [#/Vol] 4.69 10*6/uL Normal 4.6-6.[address] [facility] Comment on above: Order Comment: 109-1 Performed By: #### L 100.0100 ####[facility] [address] [place], [address] RDW SD 43.4 fl Normal 35.1-43.9 [facility] Comment on above: Order Comment: 109-1 Performed By: #### L 100.0100 ####[facility] [address] [place], [address] WBC (Bld) [#/Vol] 11.7 10*3/uL High 4.4-11.[address] [facility] Comment on above: Order Comment: 109-1 Performed By: #### L 100.0100 ####[facility] [address] [place], [address] CBC W/Diff, Automatedon 07-0 8-4 Absolute Lymph 2.13 X10 3/uL Normal 0.83-4.51 [facility] Comment on above: Order Comment: 109-1 Performed By: #### L 100.0100 ####[facility] [address] [place], [address] Absolute Neut 4.7 X10 3/uL Normal 2.0-7.7 [facility] Comment on above: Order Comment: 109-1 Performed By: #### L 100.0100 ####[facility] [address] [place], [address] Basophils/100 WBC (Bld) 0.7 % Normal 0-1 [facility] Comment on above: Order Comment: 109-1 Performed By: #### L 100.0100 ####[facility] [address] [place], [address] Eosinophils/100 WBC (Bld) 0.4 % Normal 0-5 [facility] Comment on above: Order Comment: 109-1 Performed By: #### L 100.0100 ####[facility] [address] [place], [address] Erythrocyte distribution width (RBC) [Ratio] 13.1 % Normal 11.6-14.6 [facility] Comment on above: Order Comment: 109-1 Performed By: #### L 100.0100 ####[facility] [address] [place], [address] Hematocrit (Bld) [Volume fraction] 42.4 % Normal 40-54 [facility] Comment on above: Order Comment: 109-1 Performed By: #### L 100.0100 ####[facility] [address] [place], [address] Hemoglobin (Bld) [Mass/Vol] 13.9 g/dL Normal 13.0-16.5 [facility] Comment on above: Order Comment: 109-1 Performed By: #### L 100.0100 ####[facility] [address] [place], [address] IG% 0.400 Normal 0.0-0.9 [facility] Comment on above: Order Comment: 109-1 Result Comment: IG% - Immature Granulocytes (promyelocytes, myelocytes andmetamyelocytes) > 1% indicates that a LEFT SHIFT is Present. Performed By: #### L 100.0100 ####[facility] [address] [place], [address] Lymphocytes/100 WBC (Bld) 28.1 % Normal 19-41 [facility] Comment on above: Order Comment: 109-1 Performed By: #### L 100.0100 ####[facility] [address] [place], [address] MCH (RBC) [Entitic mass] 30.3 pg Normal 27.0-32.0 [facility] Comment on above: Order Comment: 109-1 Performed By: #### L 100.0100 ####[facility] [address] [place], [address] MCHC (RBC) [Mass/Vol] 32.8 g/dL Normal 32-36 [facility] Comment on above: Order Comment: 109-1 Performed By: #### L 100.0100 ####[facility] [address] [place], [address] MCV (RBC) [Entitic vol] 92.4 fL Normal 80-94 [facility] Comment on above: Order Comment: 109-1 Performed By: #### L 100.0100 ####[facility] [address] [place], [address] Monocytes/100 WBC (Bld) 8.8 % Normal 0-10 [facility] Comment on above: Order Comment: 109-1 Performed By: #### L 100.0100 ####[facility] [address] [place], [address] Neutrophils/100 WBC (Bld) 61.6 % Normal 47-70 [facility] Comment on above: Order Comment: 109-1 Performed By: #### L 100.0100 ####[facility] [address] [place], [address] Nucleated RBC (Bld) [#/Vol] 0 10*3/uL Normal 0-5 [facility] Comment on above: Order Comment: 109-1 Performed By: #### L 100.0100 ####[facility] [address] [place], [address] Platelet mean volume (Bld) [Entitic vol] 10.9 fL Normal 6.2-12.0 [facility] Comment on above: Order Comment: 109-1 Performed By: #### L 100.0100 ####[facility] [address] [place], [address] Platelets (Bld) [#/Vol] 173 10*3/uL Normal 150-450 [facility] Comment on above: Order Comment: 109-1 Performed By: #### L 100.0100 ####[facility] [address] [place], [address] RBC (Bld) [#/Vol] 4.59 10*6/uL Low 4.6-6.[address] [facility] Comment on above: Order Comment: 109-1 Performed By: #### L 100.0100 ####[facility] [address] [place], [address] RDW SD 44.0 fl High 35.1-43.9 [facility] Comment on above: Order Comment: 109-1 Performed By: #### L 100.0100 ####[facility] [address] [place], [address] WBC (Bld) [#/Vol] 7.6 10*3/uL Normal 4.4-11.0 [facility] Comment on above: Order Comment: 109-1 Performed By: #### L 100.0100 ####[facility] [address] [place], [address] CBC W/Diff, Automatedon 07-0 1-2024 Absolute Lymph 3.06 X10 3/uL Normal 0.83-4.51 [facility] Comment on above: Order Comment: 109-1 Performed By: #### L 100.0100 ####[facility] [address] [place], [address] Absolute Neut 5.1 X10 3/uL Normal 2.0-7.7 [facility] Comment on above: Order Comment: 109-1 Performed By: #### L 100.0100 ####[facility] [address] [place], [address] Basophils/100 WBC (Bld) 0.5 % Normal 0-1 [facility] Comment on above: Order Comment: 109-1 Performed By: #### L 100.0100 ####[facility] [address] [place], [address] Eosinophils/100 WBC (Bld) 0.3 % Normal 0-5 [facility] Comment on above: Order Comment: 109-1 Performed By: #### L 100.0100 ####[facility] [address] [place], [address] Erythrocyte distribution width (RBC) [Ratio] 13.2 % Normal 11.6-14.6 [facility] Comment on above: Order Comment: 109-1 Performed By: #### L 100.0100 ####[facility] [address] [place], [address] Hematocrit (Bld) [Volume fraction] 43.8 % Normal 40-54 [facility] Comment on above: Order Comment: 109-1 Performed By: #### L 100.0100 ####[facility] [address] [place], [address] Hemoglobin (Bld) [Mass/Vol] 13.9 g/dL Normal 13.0-16.5 [facility] Comment on above: Order Comment: 109-1 Performed By: #### L 100.0100 ####[facility] [address] [place], [address] IG% 0.400 Normal 0.0-0.9 [facility] Comment on above: Order Comment: 109-1 Result Comment: IG% - Immature Granulocytes (promyelocytes, myelocytes andmetamyelocytes) > 1% indicates that a LEFT SHIFT is Present. Performed By: #### L 100.0100 ####[facility] [address] [place], [address] Lymphocytes/100 WBC (Bld) 32.4 % Normal 19-41 [facility] Comment on above: Order Comment: 109-1 Performed By: #### L 100.0100 ####[facility] [address] [place], [address] MCH (RBC) [Entitic mass] 29.3 pg Normal 27.0-32.0 [facility] Comment on above: Order Comment: 109-1 Performed By: #### L 100.0100 ####[facility] [address] [place], [address] MCHC (RBC) [Mass/Vol] 31.7 g/dL Low 32-36 [facility] Comment on above: Order Comment: 109-1 Performed By: #### L 100.0100 ####[facility] [address] [place], [address] MCV (RBC) [Entitic vol] 92.4 fL Normal 80-94 [facility] Comment on above: Order Comment: 109-1 Performed By: #### L 100.0100 ####[facility] [address] [place], [address] Monocytes/100 WBC (Bld) 11.9 % High 0-10 [facility] Comment on above: Order Comment: 109-1 Performed By: #### L 100.0100 ####[facility] [address] [place], [address] Neutrophils/100 WBC (Bld) 54.5 % Normal 47-70 [facility] Comment on above: Order Comment: 109-1 Performed By: #### L 100.0100 ####[facility] [address] [place], [address] Nucleated RBC (Bld) [#/Vol] 0 10*3/uL Normal 0-5 [facility] Comment on above: Order Comment: 109-1 Performed By: #### L 100.0100 ####[facility] [address] [place], [address] Platelet mean volume (Bld) [Entitic vol] 11.7 fL Normal 6.2-12.0 [facility] Comment on above: Order Comment: 109-1 Performed By: #### L 100.0100 ####[facility] [address] [place], [address] Platelets (Bld) [#/Vol] 203 10*3/uL Normal 150-450 [facility] Comment on above: Order Comment: 109-1 Performed By: #### L 100.0100 ####[facility] [address] [place], [address] RBC (Bld) [#/Vol] 4.74 10*6/uL Normal 4.6-6.[address] [facility] Comment on above: Order Comment: 109-1 Performed By: #### L 100.0100 ####[facility] [address] [place], [address] RDW SD 44.7 fl High 35.1-43.9 [facility] Comment on above: Order Comment: 109-1 Performed By: #### L 100.0100 ####[facility] [address] [place], [address] WBC (Bld) [#/Vol] 9.4 10*3/uL Normal 4.4-11.0 [facility] Comment on above: Order Comment: 109-1 Performed By: #### L 100.0100 ####[facility] [address] [place], [address] CBC W/Diff, Automatedon 06-2 -2023 Absolute Lymph 2.08 X10 3/uL Normal 0.83-4.51 [facility] Comment on above: Order Comment: 109-1 Performed By: #### L 100.0100 ####[facility] [address] [place], [address] Absolute Neut 4.3 X10 3/uL Normal 2.0-7.7 [facility] Comment on above: Order Comment: 109-1 Performed By: #### L 100.0100 ####[facility] [address] [place], [address] Basophils/100 WBC (Bld) 0.6 % Normal 0-1 [facility] Comment on above: Order Comment: 109-1 Performed By: #### L 100.0100 ####[facility] [address] [place], [address] Eosinophils/100 WBC (Bld) 0.6 % Normal 0-5 [facility] Comment on above: Order Comment: 109-1 Performed By: #### L 100.0100 ####[facility] [address] [place], [address] Erythrocyte distribution width (RBC) [Ratio] 12.9 % Normal 11.6-14.6 [facility] Comment on above: Order Comment: 109-1 Performed By: #### L 100.0100 ####[facility] [address] [place], [address] Hematocrit (Bld) [Volume fraction] 39.1 % Low 40-54 [facility] Comment on above: Order Comment: 109-1 Performed By: #### L 100.0100 ####[facility] [address] [place], [address] Hemoglobin (Bld) [Mass/Vol] 12.6 g/dL Low 13.0-16.5 [facility] Comment on above: Order Comment: 109-1 Performed By: #### L 100.0100 ####[facility] [address] [place], [address] IG% 0.400 Normal 0.0-0.9 [facility] Comment on above: Order Comment: 109-1 Result Comment: IG% - Immature Granulocytes (promyelocytes, myelocytes andmetamyelocytes) > 1% indicates that a LEFT SHIFT is Present. Performed By: #### L 100.0100 ####[facility] [address] [place], [address] Lymphocytes/100 WBC (Bld) 29.1 % Normal 19-41 [facility] Comment on above: Order Comment: 109-1 Performed By: #### L 100.0100 ####[facility] [address] [place], [address] MCH (RBC) [Entitic mass] 29.7 pg Normal 27.0-32.0 [facility] Comment on above: Order Comment: 109-1 Performed By: #### L 100.0100 ####[facility] [address] [place], [address] MCHC (RBC) [Mass/Vol] 32.2 g/dL Normal 32-36 [facility] Comment on above: Order Comment: 109-1 Performed By: #### L 100.0100 ####[facility] [address] [place], [address] MCV (RBC) [Entitic vol] 92.2 fL Normal 80-94 [facility] Comment on above: Order Comment: 109-1 Performed By: #### L 100.0100 ####[facility] [address] [place], [address] Monocytes/100 WBC (Bld) 9.6 % Normal 0-10 [facility] Comment on above: Order Comment: 109-1 Performed By: #### L 100.0100 ####[facility] [address] [place], [address] Neutrophils/100 WBC (Bld) 59.7 % Normal 47-70 [facility] Comment on above: Order Comment: 109-1 Performed By: #### L 100.0100 ####[facility] [address] [place], [address] Nucleated RBC (Bld) [#/Vol] 0 10*3/uL Normal 0-5 [facility] Comment on above: Order Comment: 109-1 Performed By: #### L 100.0100 ####[facility] [address] [place], [address] Platelet mean volume (Bld) [Entitic vol] 11.3 fL Normal 6.2-12.0 [facility] Comment on above: Order Comment: 109-1 Performed By: #### L 100.0100 ####[facility] [address] [place], [address] Platelets (Bld) [#/Vol] 200 10*3/uL Normal 150-450 [facility] Comment on above: Order Comment: 109-1 Performed By: #### L 100.0100 ####[facility] [address] [place], [address] RBC (Bld) [#/Vol] 4.24 10*6/uL Low 4.6-6.[address] [facility] Comment on above: Order Comment: 109-1 Performed By: #### L 100.0100 ####[facility] [address] [place], [address] RDW SD 43.5 fl Normal 35.1-43.9 [facility] Comment on above: Order Comment: 109-1 Performed By: #### L 100.0100 ####[facility] [address] [place], [address] WBC (Bld) [#/Vol] 7.2 10*3/uL Normal 4.4-11.0 [facility] Comment on above: Order Comment: 109-1 Performed By: #### L 100.0100 ####[facility] [address] [place], [address] CBC W/Diff, Automatedon 09-29 Absolute Lymph 2.37 X10 3/uL Normal 0.83-4.51 [facility] Comment on above: Order Comment: 109-1 Performed By: #### L 100.0100 ####[facility] [address] [place], [address] Absolute Neut 5.6 X10 3/uL Normal 2.0-7.7 [facility] Comment on above: Order Comment: 109-1 Performed By: #### L 100.0100 ####[facility] [address] [place], [address] Basophils/100 WBC (Bld) 0.3 % Normal 0-1 [facility] Comment on above: Order Comment: 109-1 Performed By: #### L 100.0100 ####[facility] [address] [place], [address] Eosinophils/100 WBC (Bld) 0.2 % Normal 0-5 [facility] Comment on above: Order Comment: 109-1 Performed By: #### L 100.0100 ####[facility] [address] [place], [address] Erythrocyte distribution width (RBC) [Ratio] 12.6 % Normal 11.6-14.6 [facility] Comment on above: Order Comment: 109-1 Performed By: #### L 100.0100 ####[facility] [address] [place], [address] Hematocrit (Bld) [Volume fraction] 39.6 % Low 40-54 [facility] Comment on above: Order Comment: 109-1 Performed By: #### L 100.0100 ####[facility] [address] [place], [address] Hemoglobin (Bld) [Mass/Vol] 12.8 g/dL Low 13.0-16.5 [facility] Comment on above: Order Comment: 109-1 Performed By: #### L 100.0100 ####[facility] [address] [place], [address] IG% 0.500 Normal 0.0-0.9 [facility] [facility] Comment on above: Order Comment: 109-1 Result Comment: IG% - Immature Granulocytes (promyelocytes, myelocytes andmetamyelocytes) > 1% indicates that a LEFT SHIFT is Present. Performed By: #### L 100.0100 ####[facility] [address] [place], [address] Lymphocytes/100 WBC (Bld) 27.3 % Normal 19-41 [facility] Comment on above: Order Comment: 109-1 Performed By: #### L 100.0100 ####[facility] [address] [place], [address] MCH (RBC) [Entitic mass] 29.7 pg Normal 27.0-32.0 [facility] Comment on above: Order Comment: 109-1 Performed By: #### L 100.0100 ####[facility] [address] [place], [address] MCHC (RBC) [Mass/Vol] 32.3 g/dL Normal 32-36 [facility] Comment on above: Order Comment: 109-1 Performed By: #### L 100.0100 ####[facility] [address] [place], [address] MCV (RBC) [Entitic vol] 91.9 fL Normal 80-94 [facility] Comment on above: Order Comment: 109-1 Performed By: #### L 100.0100 ####[facility] [address] [place], [address] Monocytes/100 WBC (Bld) 6.8 % Normal 0-10 [facility] Comment on above: Order Comment: 109-1 Performed By: #### L 100.0100 ####[facility] [address] [place], [address] Neutrophils/100 WBC (Bld) 64.9 % Normal 47-70 [facility] Comment on above: Order Comment: 109-1 Performed By: #### L 100.0100 ####[facility] [address] [place], [address] Nucleated RBC (Bld) [#/Vol] 0 10*3/uL Normal 0-5 [facility] Comment on above: Order Comment: 109-1 Performed By: #### L 100.0100 ####[facility] [address] [place], [address] Platelet mean volume (Bld) [Entitic vol] 10.7 fL Normal 6.2-12.0 [facility] Comment on above: Order Comment: 109-1 Performed By: #### L 100.0100 ####[facility] [address] [place], [address] Platelets (Bld) [#/Vol] 209 10*3/uL Normal 150-450 [facility] Comment on above: Order Comment: 109-1 Performed By: #### L 100.0100 ####[facility] [address] [place], [address] RBC (Bld) [#/Vol] 4.31 10*6/uL Low 4.6-6.[address] [facility] Comment on above: Order Comment: 109-1 Performed By: #### L 100.0100 ####[facility] [address] [place], [address] RDW SD 42.5 fl Normal 35.1-43.9 [facility] Comment on above: Order Comment: 109-1 Performed By: #### L 100.0100 ####[facility] [address] [place], [address] WBC (Bld) [#/Vol] 8.7 10*3/uL Normal 4.4-11.0 [facility] Comment on above: Order Comment: 109-1 Performed By: #### L 100.0100 ####[facility] [address] [place], [address] CBC W/Diff, Automatedon 06-1 0-2024 Absolute Lymph 2.05 X10 3/uL Normal 0.83-4.51 [facility] Comment on above: Order Comment: 109-1 Performed By: #### L 100.0100 ####[facility] [address] [place], [address] Absolute Neut 5.5 X10 3/uL Normal 2.0-7.7 [facility] Comment on above: Order Comment: 109-1 Performed By: #### L 100.0100 ####[facility] [address] [place], [address] Basophils/100 WBC (Bld) 0.2 % Normal 0-1 [facility] Comment on above: Order Comment: 109-1 Performed By: #### L 100.0100 ####[facility] [address] [place], [address] Eosinophils/100 WBC (Bld) 0.4 % Normal 0-5 [facility] Comment on above: Order Comment: 109-1 Performed By: #### L 100.0100 ####[facility] [address] [place], [address] Erythrocyte distribution width (RBC) [Ratio] 12.5 % Normal 11.6-14.6 [facility] Comment on above: Order Comment: 109-1 Performed By: #### L 100.0100 ####[facility] [address] [place], [address] Hematocrit (Bld) [Volume fraction] 40.0 % Normal 40-54 [facility] Comment on above: Order Comment: 109-1 Performed By: #### L 100.0100 ####[facility] [address] [place], [address] Hemoglobin (Bld) [Mass/Vol] 13.2 g/dL Normal 13.0-16.5 [facility] Comment on above: Order Comment: 109-1 Performed By: #### L 100.0100 ####[facility] [address] [place], [address] IG% 0.700 Normal 0.0-0.9 [facility] Comment on above: Order Comment: 109-1 Result Comment: IG% - Immature Granulocytes (promyelocytes, myelocytes andmetamyelocytes) > 1% indicates that a LEFT SHIFT is Present. Performed By: #### L 100.0100 ####[facility] [address] [place], [address] Lymphocytes/100 WBC (Bld) 24.8 % Normal 19-41 [facility] Comment on above: Order Comment: 109-1 Performed By: #### L 100.0100 ####[facility] [address] [place], [address] MCH (RBC) [Entitic mass] 30.1 pg Normal 27.0-32.0 [facility] Comment on above: Order Comment: 109-1 Performed By: #### L 100.0100 ####[facility] [address] [place], [address] MCHC (RBC) [Mass/Vol] 33.0 g/dL Normal 32-36 [facility] Comment on above: Order Comment: 109-1 Performed By: #### L 100.0100 ####[facility] [address] [place], [address] MCV (RBC) [Entitic vol] 91.3 fL Normal 80-94 [facility] Comment on above: Order Comment: 109-1 Performed By: #### L 100.0100 ####[facility] [address] [place], [address] Monocytes/100 WBC (Bld) 7.1 % Normal 0-10 [facility] Comment on above: Order Comment: 109-1 Performed By: #### L 100.0100 ####[facility] [address] [place], [address] Neutrophils/100 WBC (Bld) 66.8 % Normal 47-70 [facility] Comment on above: Order Comment: 109-1 Performed By: #### L 100.0100 ####[facility] [address] [place], [address] Nucleated RBC (Bld) [#/Vol] 0 10*3/uL Normal 0-5 [facility] Comment on above: Order Comment: 109-1 Performed By: #### L 100.0100 ####[facility] [address] [place], [address] Platelet mean volume (Bld) [Entitic vol] 10.4 fL Normal 6.2-12.0 [facility] Comment on above: Order Comment: 109-1 Performed By: #### L 100.0100 ####[facility] [address] [place], [address] Platelets (Bld) [#/Vol] 234 10*3/uL Normal 150-450 [facility] Comment on above: Order Comment: 109-1 Performed By: #### L 100.0100 ####[facility] [address] [place], [address] RBC (Bld) [#/Vol] 4.38 10*6/uL Low 4.6-6.[address] [facility] Comment on above: Order Comment: 109-1 Performed By: #### L 100.0100 ####[facility] [address] [place], [address] RDW SD 41.9 fl Normal 35.1-43.9 [facility] Comment on above: Order Comment: 109-1 Performed By: #### L 100.0100 ####[facility] [address] [place], [address] WBC (Bld) [#/Vol] 8.3 10*3/uL Normal 4.4-11.0 [facility] Comment on above: Order Comment: 109-1 Performed By: #### L 100.0100 ####[facility] [address] [place], [address] CBC W Auto Differential pane l (Bld)on 10-02-2023 Basophils (Bld) [#/Vol] 0.0 10*3/uL 0.0 - 0.2 10*3/uL [facility] [employer] Basophils/100 WBC (Bld) 0.3 % 0.0 - 2.0 % [facility] [employer] Eosinophils (Bld) [#/Vol] 0.0 10*3/uL 0.0 - 0.5 10*3/uL [facility] [employer] Eosinophils/100 WBC (Bld) 0.0 % 0.0 - 6.0 % [facility] [employer] Erythrocyte distribution width (RBC) [Ratio] 13.0 % 11.5 - 15.0 % [facility] [employer] Hematocrit (Bld) [Volume fraction] 37.8 % Low 40.0 - 52.0 % [facility] [employer] Hemoglobin (Bld) [Mass/Vol] 13.0 g/dL 13.0 - 18.0 g/dL [facility] [employer] Immature granulocytes (Bld) [#/Vol] 0.1 10*3/uL High NINF - 0.1 10*3/uL [facility] Immature granulocytes/100 WBC (Bld) 0.5 % 0.0 - 2.0 % [facility] Interpretation and review of laboratory results Abnormal [facility] [employer] Lymphocytes (Bld) [#/Vol] 0.9 10*3/uL Low 1.0 - 4.3 10*3/uL [facility] Lymphocytes/100 WBC (Bld) 8.4 % Low 15.0 - 45.0 % [facility] MCH (RBC) [Entitic mass] 30.3 pg 26.0 - 34.0 pg [facility] [employer] MCHC (RBC) [Mass/Vol] 34.4 % 30.5 - 36.0 % [facility] MCV (RBC) [Entitic vol] 88.1 fL 77.0 - 99.0 fL [facility] [employer] Monocytes (Bld) [#/Vol] 0.9 10*3/uL 0.0 - 0.9 10*3/uL [facility] Monocytes/100 WBC (Bld) 8.2 % 5.0 - 13.0 % [facility] Neutrophils (Bld) [#/Vol] 8.9 10*3/uL High 1.8 - 7.5 10*3/uL [facility] Neutrophils/100 WBC (Bld) 82.6 % High 38.0 - 82.0 % [facility] Nucleated RBC/100 WBC (Bld) [Ratio] 0.0 % [facility] [employer] Platelet mean volume (Bld) [Entitic vol] 10.7 fL 9.0 - 12.7 fL [facility] [employer] Platelets (Bld) [#/Vol] 148 10*3/uL 140 - 440 10*3/uL [facility] RBC (Bld) [#/Vol] 4.29 10*6/uL Low 4.40 - 5.9 0 10*6/uL [facility] WBC (Bld) [#/Vol] 10.7 10*3/uL 3.6 - 10.7 10*3/uL [facility] CBC WITH AUTO DIFFERENTIALon 10-02-2023 Basophils (Bld) [#/Vol] 0.0 10*3/uL Normal 0.0-0.2 [facility] Comment on above: Performed By: #### L [id number] #### [facility] Manager: CYNDI LILLY ([phone]) [facility] ([facility]) [address] Basophils/100 WBC (Bld) 0.3 % Normal 0.0-2.0 [facility] Comment on above: Performed By: #### L [id number] #### [facility] Manager: CYNDI DRIVERRADHA ([phone]) [facility] ([facility]) [address] Eosinophils (Bld) [#/Vol] 0.0 10*3/uL Normal 0.0-0.5 [facility] Comment on above: Performed By: #### L [id number] #### [facility] Manager: CYNDI DRIVERRADHA ([phone]) [facility] [place] [facility] [address] Eosinophils/100 WBC (Bld) 0.0 % Normal 0.0-6.0 [facility] Comment on above: Performed By: #### L [id number] #### [facility] Manager: CYNDI DRIVERRADHA ([phone]) [facility] [place] ([facility]) [address] Erythrocyte distribution width (RBC) [Ratio] 13.0 % Normal 11.5-15.0 [facility] Comment on above: Performed By: #### L [id number] #### [facility] Manager: CYNDI DRIVERRADHA ([phone]) [facility] [place] ([facility]) [address] Hematocrit (Bld) [Volume fraction] 37.8 % Low 40.0-52.0 [facility] Comment on above: Performed By: #### L [id number] #### [facility] Manager: CYNDI LILLY ([phone]) [facility] [address] Hemoglobin (Bld) [Mass/Vol] 13.0 g/dL Normal 13.0-18.0 [facility] Comment on above: Performed By: #### L [id number] #### [facility] Manager: CYNDI LILLY ([phone]) [facility] ([facility]) [address] IMMATURE GRANS % 0.5 % Normal 0.0-2.0 [facility] Comment on above: Performed By: #### L [id number] #### [facility] Manager: CYNDI LILLY ([phone]) [facility] ([facility]) [address] IMMATURE GRANS ABSOLUTE 0.1 10*3/uL High <0.1 [facility] Comment on above: Performed By: #### L [id number] #### [facility] Manager: CYNDI LILLY ([phone]) [facility] ([facility]) [address] [place] [address] [place] Lymphocytes (Bld) [#/Vol] 0.9 10*3/uL Low 1.0-4.3 [facility] Comment on above: Performed By: #### L [id number] #### [facility] Manager: CYNDI LILLY ([phone]) [facility] [address] Lymphocytes/100 WBC (Bld) 8.4 % Low 15.0-45.0 [facility] Comment on above: Performed By: #### L [id number] #### [facility] Manager: CYNDI LILLY ([phone]) [facility] [address] MCH (RBC) [Entitic mass] 30.3 pg Normal 26.0-34.0 [facility] Comment on above: Performed By: #### L [id number] #### [facility] Manager: CYNDI LILLY ([phone]) [facility] ([facility]) [address] MCHC 34.4 % Normal 30.5-36.0 [facility] Comment on above: Performed By: #### L [id number] #### [facility] [employer] [facility] Manager: CYNDI LILLY ([phone]) [facility] ([facility]) [address] MCV (RBC) [Entitic vol] 88.1 fL Normal 77.0-99.0 [facility] Comment on above: Performed By: #### L [id number] #### [facility] [employer] Manager: CYNDI LILLY ([phone]) [facility] [place] ([facility]) [address] Monocytes (Bld) [#/Vol] 0.9 10*3/uL Normal 0.0-0.9 [facility] Comment on above: Performed By: #### L [id number] #### [facility] [facility] Manager: CYNDI DRIVERRADHA ([phone]) [facility] [place] ([facility]) [address] [place] [address] [place] Monocytes/100 WBC (Bld) 8.2 % Normal 5.0-13.0 [facility] Comment on above: Performed By: #### L [id number] #### [facility] Manager: CYNDI DRIVERRADHA ([phone]) [facility] [place] ([facility]) [address] NEUTROPHILS ABSOLUTE 8.9 10*3/uL High 1.8-7.5 [facility] Comment on above: Performed By: #### L [id number] #### [facility] [facility] Manager: CYNDI LILLY ([phone]) [facility] [place] ([facility]) [address] [place] [address] [place] Neutrophils/100 WBC (Bld) 82.6 % High 38.0-82.0 [facility] Comment on above: Performed By: #### L [id number] #### [facility] Manager: CYNDI DRIVERRADHA ([phone]) [facility] [place] ([facility]) [address] [place] [address] [place] NRBC 0.0 /100 WBCs Normal 0.0-2.0 [facility] Comment on above: Performed By: #### L [id number] #### [facility] Manager: CYNDI LILLY ([phone]) [facility] [place] ([facility]) [address] Platelet mean volume (Bld) [Entitic vol] 10.7 fL Normal 9.0-12.7 [facility] Comment on above: Performed By: #### L [id number] #### [facility] Manager: CYNDI LILLY ([phone]) [facility] ([facility] [address] Platelets (Bld) [#/Vol] 148 10*3/uL Normal 140-440 [facility] Comment on above: Performed By: #### L [id number] #### [facility] Manager: CYNDI LILLY ([phone]) [facility] ([facility]) [address] RBC (Bld) [#/Vol] 4.29 10*6/uL Low 4.40-5.90 [facility] Comment on above: Performed By: #### L [id number] #### [facility] Manager: CYNDI LILLY ([phone]) [facility] [address] WBC (Bld) [#/Vol] 10.7 10*3/uL Normal 3.6-10.7 [facility] Comment on above: Performed By: #### L [id number] #### [facility] Manager: CYNDI LILLY ([phone]) [facility] [address] COMPREHENSIVE METABOLIC PANE Reji 10-02-2023 Albumin [Mass/Vol] 3.7 g/dL Normal 3.5-5.0 [facility] Comment on above: Performed By: #### L AB17, [id number] ####[facility] Manager: CYNDI LILLY ([phone])[facility] ([facility])[address] ALP [Catalytic activity/Vol] 78 U/L Normal 38-126 [facility] Comment on above: Performed By: #### Alban SMITH, [id number] ####[facility] Manager: CYNDI LILLY ([phone])[facility] ([facility])[address] ALT [Catalytic activity/Vol] 21 U/L Normal 0-49 [facility] Comment on above: Performed By: #### Alban SMITH, [id number] ####[facility] Manager: CYNDI LILLY ([phone])[facility] ([facility])[address] Anion gap [Moles/Vol] 10 mmol/L Normal 3-13 [facility] Comment on above: Performed By: #### Alban SMITH, [id number] ####[facility] Transplant Network Manager: CYNDI LILLY ([phone])[facility] ([facility])[address] AST [Catalytic activity/Vol] 29 U/L Normal 15-46 [facility] Comment on above: Performed By: #### Alban SMITH, [id number] ####[facility] Transplant Network Manager: CYNDI LILLY ([phone])[facility] ([facility])[address] Bilirubin [Mass/Vol] 1.1 mg/dL Normal 0.2-1.3 [facility] Comment on above: Performed By: #### Alban SMITH, [id number] ####[facility] Transplant Network Manager: CYNDI LILLY ([phone])[facility] ([facility])[address] Calcium [Mass/Vol] 7.8 mg/dL Low 8.4-10.4 [facility] Comment on above: Performed By: #### L AB17, [id number] ####On[facility] Transplant Network Manager: CYNDI LILLY ([phone])[facility]N ([facility])[address] [place] [address] [place] Chloride [Moles/Vol] 102 mmol/L Normal 98-107 [facility] Comment on above: Performed By: #### Alban YEH17, [id number] ####On[facility] Transplant Network Manager: CYNDI LILLY ([phone])[facility] ([facility])[address] CO2 [Moles/Vol] 23 mmol/L Normal 22-30 [facility] Comment on above: Performed By: #### Alban YEH17, [id number] ####On[facility] Transplant Network Manager: CYNDI LILLY ([phone])[facility] ([facility])[address] Creatinine [Mass/Vol] 0.58 mg/dL Low 0.66-1.25 [facility] Comment on above: Performed By: #### Alban YEH17, [id number] ####On[facility] Transplant Network Manager: CYNDI LILLY ([phone])[facility] GLOMERULAR FILTRATION RATE ML/MIN/1.73 SQ M.PREDICTED >90.0 Normal >60.0 [facility] Comment on above: Result Comment: Calc ulation based on the Chronic Kidney Disease Epidemiology Collaboration (CKD-EPI) equation refit without adjustment for race Performed By: #### Ablan YEH17, [id number] ####[facility] Transplant Network Manager: CYNDI LILLY ([phone])[facility] ([facility])[address] Glucose [Mass/Vol] 111 mg/dL High 70-100 [facility] Comment on above: Performed By: #### L AB17, [id number] ####[facility] Transplant Network Manager: CYNDI LILLY ([phone])[facility] (HLAB)[address] Potassium [Moles/Vol] 4.0 mmol/L Normal 3.5-5.1 [facility] Comment on above: Performed By: #### L AB17, [id number] ####[facility] Transplant Network Manager: CYNDI LILLY ([phone])[facility] [place] ([facility])[address] [place] [address] Protein [Mass/Vol] 6.5 g/dL Normal 6.3-8.2 [facility] Comment on above: Performed By: #### L AB17, [id number] ####On[facility] Transplant Network Manager: CYNDI DRIVERRADHA ([phone])[facility] [place] ([facility])[address] [place] [address] Sodium [Moles/Vol] 135 mmol/L Normal 135-145 [facility] Comment on above: Performed By: #### L AB17, [id number] ####Oncology Transplant Network Manager: CYNDI DRIVERRADHA ([phone])[facility] [place] [address] Urea nitrogen [Mass/Vol] 18 mg/dL Normal 9-20 [facility] Comment on above: Performed By: #### L AB17, [id number] ####Oncology Transplant Network Manager: CYNDI SMITHEASTON ([phone])[facility] ([facility])[address] [place] [address] CT HEAD WO IV CONTRASTon CT HEAD WO IV CONTRAST [facility] 1955 [id number] Exam Date/Time: 10/02/2023 11:03 Procedure: CT HEAD WO IV CONTRAST Ordering Provider: TOLEDO AMY Reason For Exam: Neuro deficit, acute, stroke suspected EXAMINATION: CT HEAD WO IV CONTRAST HISTORY: Neuro deficit, acute, stroke suspected - - - - - [id number] - - - - TECHNIQUE: CT head without contrast. Dose reduction was employed with automated exposure control. COMPARISON: None. RESULT: Acute change: No evidence of an acute intracranial process. Hemorrhage: No evidence of acute intracranial hemorrhage. Mass Lesion / Mass Effect: No evidence of an intracranial mass, extra-axial fluid collection, or significant localized mass effect. Chronic change: None apparent. Parenchyma: There is mild generalized volume loss. The brain parenchyma is otherwise within normal limits for age. Ventricles: Normal caliber and morphology. Other: There is mild mucosal thickening of scattered bilateral ethmoid air cells and the left sphenoid sinus IMPRESSION: No CT evidence of an acute intracranial abnormality. Report Dictated on Electronically Signed By: Maria Eugenia Ruiz MD Electronically Signed Date/Time: 10/02/2023 11:09 AM EDT Left sided facial droop. Per EMS nurse is new and does not know patient very well but he is A&O x 2 at baseline. Per EMS the nurse states it was 20 mins ago. Contacted nurse that was caring for him and she states that was the first time she has seen him for that day, rn shift mgr did not report any problems. EMS states stroke scale was negative but he has breathing problems so he was given a duoneb and placed on 4L NC. Upon arrival pt is alert and oriented x 3. Pt is leaving his mouth open but is able to close it, he states he doesn't know when this started. Pt has no complaints at this time. Normal [facility] CT Head WO contraston [address] evidence of an acute intracranial abnormality. Report Dictated on Electronically Signed By: Maria Eugenia Ruiz MD Electronically Signed Date/Time: 10/02/2023 11:09 AM T [facility] Name[facility] 1955 [id number] Exam Date/Time: 10/02/2023 11:03 Procedure: CT HEAD WO IV CONTRAST Ordering Provider: TOLEDO AMY Reason For Exam: Neuro deficit, acute, stroke suspected EXAMINATION: CT HEAD WO IV CONTRAST HISTORY: Neuro deficit, acute, stroke suspected - - - - - [id number] - - - - TECHNIQUE: CT head without contrast. Dose reduction was employed with automated exposure control. COMPARISON: None. RESULT: Acute change: No evidence of an acute intracranial process. Hemorrhage: No evidence of acute intracranial hemorrhage. Mass Lesion / Mass Effect: No evidence of an intracranial mass, extra-axial fluid collection, or significant localized mass effect. Chronic change: None apparent. Parenchyma: There is mild generalized volume loss. The brain parenchyma is otherwise within normal limits for age. Ventricles: Normal caliber and morphology. Other: There is mild mucosal thickening of scattered bilateral ethmoid air cells and the left sphenoid sinus [facility] Maria Eugenia Ruiz MD - 10/02/2023 [facility] 1955 [id number] Exam Date/Time: 10/02/2023 11:03 Procedure: CT HEAD WO IV CONTRAST Ordering Provider: TOLEDO AMY Reason For Exam: Neuro deficit, acute, stroke suspected EXAMINATION: CT HEAD WO IV CONTRAST HISTORY: Neuro deficit, acute, stroke suspected - - - - - [id number] - - - - TECHNIQUE: CT head without contrast. Dose reduction was employed with automated exposure control. COMPARISON: None. RESULT: Acute change: No evidence of an acute intracranial process. Hemorrhage: No evidence of acute intracranial hemorrhage. Mass Lesion / Mass Effect: No evidence of an intracranial mass, extra-axial fluid collection, or significant localized mass effect. Chronic change: None apparent. Parenchyma: There is mild generalized volume loss. The brain parenchyma is otherwise within normal limits for age. Ventricles: Normal caliber and morphology. Other: There is mild mucosal thickening of scattered bilateral ethmoid air cells and the left sphenoid sinus IMPRESSION: No CT evidence of an acute intracranial abnormality. Report Dictated on Electronically Signed By: Maria Eugenia Ruiz MD Electronically Signed Date/Time: 10/02/2023 11:09 AM EDT [facility] Radiology Study observation (narrative) [facility] CT Head WO contrastOrdered B y: Maria Eugenia Ruiz on 10-02-2023 [facility] [employer] Work Phone: Comprehensive metabolic 1998 panelon 10-02-2023 Albumin [Mass/Vol] 3.7 g/dL 3.5 - 5.0 g/dL [facility] [employer] ALP [Catalytic activity/Vol] 78 U/L 38 - 126 U/L [facility] ALT [Catalytic activity/Vol] 21 U/L 0 - 49 U/L [facility] Anion gap [Moles/Vol] 10 mmol/L 3 - 13 mmol/L [facility] AST [Catalytic activity/Vol] 29 U/L 15 - 46 U/L [facility] Bilirubin [Mass/Vol] 1.1 mg/dL 0.2 - 1 .3 mg/dL [facility] Calcium [Mass/Vol] 7.8 mg/dL Low 8.4 - 10. 4 mg/dL [facility] Chloride [Moles/Vol] 102 mmol/L 98 - 10 7 mmol/L [facility] CO2 [Moles/Vol] 23 mmol/L 22 - 30 mmol/L [facility] Creatinine [Mass/Vol] 0.58 mg/dL Low 0.66 - 1.25 mg/dL [facility] GFR/1.73 sq M.predicted MDRD (S/P/Bld) [Vol rate/Area] - PINF [facility] Comment on above: Calculation based on the Chronic Kidney Disease Epidemiology Collaboration (CKD-EPI) equation refit without adjustment for race Glucose [Mass/Vol] 111 mg/dL High 70 - 100 mg/dL [facility] Interpretation and review of laboratory results Abnormal [facility] Potassium [Moles/Vol] 4.0 mmol/L 3.5 - 5.1 mmol/L [facility] Protein [Mass/Vol] 6.5 g/dL 6.3 - 8.2 g/dL [facility] Sodium [Moles/Vol] 135 mmol/L 135 - 145 mmol/L [facility] Urea nitrogen [Mass/Vol] 18 mg/dL 9 - 20 mg/dL [facility] ECG 12-LEADon 10-02-2023 ECG 12-LEAD IMPRESSION: Sinus tachycardia Left bundle branch block ST elevation secondary to IVCD Electronically Signed On 10-02-2023 12:40:15 EDT by Fei Farooq Normal [facility] ED Nursing Noteon 10-02-2023 ED Nursing Note [facility] at bedside at this time Mami Lantigua RN 10/02/23 1427 Normal [facility] ED Nursing Note This RN gave report to Marnie at [facility] at this time Mami Lantigua RN 10/02/23 1358 Normal [facility] ED Nursing Note This RN went to evaluate patient, was on 2L o2 and does not wear at baseline, plan is dc, this RN turned o2 off to trial patient, spo2 monitor on Mami Lantigua RN 10/02/23 1325 Normal [facility] ED Nursing Note Pt to ct via cart Eloisa Alfaro RN 10/02/23 1043 [facility] ED Nursing Note Pt was brought in vi [facility] from [facility] for Left sided facial droop. Per EMS nurse is new and does not know patient very well but he is A&O x 2 at baseline. Per EMS the nurse states it was 20 mins ago. Contacted nurse that was caring for him and she states that was the first time she has seen him for that day, rn shift mgr did not report any problems. EMS states stroke scale was negative but he has breathing problems so he was given a duoneb and placed on 4L NC. Upon arrival pt is alert and oriented x 3. Pt is leaving his mouth open but is able to close it, he states he doesn't know when this started. Pt has no complaints at this time. Pt walks with a cane at the facility. Hx of schizophrenia. BS 131. [facility] ED Provider Noteon ED Provider Note [facility] ED eMERGENCY dEPARTMENT eNCOUnter Pt Name: Kathya Hooper Birthdate 1955 Date of evaluation: 10/02/2023 Provider: Helen Toledo PA-C CHIEF COMPLAINT Chief Complaint Patient presents with Altered Mental Status HISTORY OF PRESENT ILLNESS (Location/Symptom, Timing/Onset,Context/ Setting, Quality, Duration, Modifying Factors, Severity) Note limiting factors. HPI This patient is seen in conjunction with Dr. Farooq who also interviewed and evaluated the patient at bedside. Kathya Hooper is a 68 y.o. male who presents to the emergency department from a local intermediate facility where he is currently a resident. Patient was sent in for possible altered mental status. There was concerns for possible facial droop. On arrival patient himself denies any complaints. He states that he has been feeling a bit confused but that is been going on for about 8 months now. He denies any difficulty speaking or loss of coordination. He denies any headache or numbness. Nursing Notes were reviewed. REVIEW OF SYSTEMS (2+ for4; 10+ for level 5) Review of Systems Constitutional: Negative for chills and fever. HENT: Negative for ear pain and sore throat. Eyes: Negative for pain and visual disturbance. Respiratory: Negative for cough and shortness of breath. Cardiovascular: Negative for chest pain and palpitations. Gastrointestinal: Negative for abdominal pain and vomiting. Genitourinary: Negative for dysuria and hematuria. Musculoskeletal: Negative for arthralgias and back pain. Skin: Negative for color change and rash. Neurological: Negative for seizures and syncope. All other systems reviewed and are negative. PAST MEDICAL HISTORY Past Medical History: Diagnosis Date TREVER (acute kidney injury) ([facility] ([facility]) Alcohol abuse 07/08/2018 Anxiety C1 spinal cord injury ([facility]) ([facility]) Depression Fall 06/2018 Schizophrenia ([facility]) SURGICALHISTORY Past Surgical History: Procedure Laterality Date CERVICAL FUSION 07/09/2014 C2-6 cervical fusion GASTROSTOMY TUBE PLACEMENT 07/13/2018 TRACHEOSTOMY 07/13/2018 CURRENT MEDICATIONS Discharge Medication List as of 10/02/2023 1:53 PM CONTINUE these medications which have NOT CHANGED Details acetaminophen (Tylenol) 325 MG tablet Take 650 mg by mouth every 6 hours as needed., Historical Med chlorhexidine (Peridex) 0.12 % solution Use 15 mL in the mouth or throat if needed for wound care., Historical Med cholecalciferol ( Vitamin D3) 25 MCG (1000 UT) tablet Take 1,000 Units by mouth daily., Historical Med !! cloZAPine (Clozaril) 100 MG tablet Take 225 mg by mouth 2 times daily., Historical Med !! cloZAPine (Clozaril) 50 MG tablet Take 50 mg by mouth daily., Historical Med docusate sodium (Colace) 100 MG capsule Take 100 mg by mouth 2 times daily., Historical Med ipratropium-albuterol (Duo-Neb) 0.5-2.5 mg/3 mL nebulizer solution Take 3 mL by nebulization every 4 hours., Historical Med Potassium Chloride 20 MEQ/15ML (10%) solution Take 20 mEq by mouth daily., Historical Med risperiDONE (RisperDAL) 1 MG tablet Take 1 mg by mouth 2 times daily., Historical Med sucralfate (Carafate) 1 GM/10ML suspension Take 1 g by mouth in the morning and 1 g in the evening., Historical Med tamsulosin (Flomax) 0.4 MG 24 hr capsule Take 0.4 mg by mouth daily., Historical Med thiamine (Vitamin B-1) 100 MG tablet Take 100 mg by mouth daily., Historical Med traZODone (Desyrel) 50 MG tablet Take 50 mg by mouth Nightly., Historical Med !! - Potential duplicate medications found. Please discuss with provider. Patient has no known allergies. FAMILY HISTORY No family history on file. SOCIAL HISTORY Social History Socioeconomic History Marital status: Single Tobacco Use Smoking status: Former Types: Cigarettes Quit date: 02/06/2016 Years since quittin.6 Smokeless tobacco: Never Substance and Sexual Activity Alcohol use: Yes Alcohol/week: 6.0 standard drinks of alcohol Drug use: No SCREENINGS PHYSICAL EXAM (5+ for level 4, 8+ for level 5) @EDTRIAGEVSS@ Physical Exam Vitals and nursing note reviewed. Constitutional: General: He is not in acute distress. Appearance: Normal appearance. He is well-developed. HENT: Head: Normocephalic and atraumatic. Eyes: Conjunctiva/sclera: Conjunctivae normal. Cardiovascular: Rate and Rhythm: Normal rate and regular rhythm. Heart sounds: No murmur heard. Pulmonary: Effort: Pulmonary effort is normal. No respiratory distress. Breath sounds: Normal breath sounds. Musculoskeletal: General: No swelling. Skin: General: Skin is warm and dry. Neurological: General: No focal deficit present. Mental Status: He is alert and oriented to person, place, and time. Psychiatric: Mood and Affect: Mood normal. Behavior: Behavior normal. DIAGNOSTIC RESULTS EKG (Per Emergency Physician): RADIOLOGY (Per EmergencyPhysician): Interpret (more content not included)... Normal [facility] ED Provider Note Emergency Department Encounter [facility] ED Patient: Kathya Hooper : 1955 Date of Evaluation: 10/02/2023 ED Supervising Physician: Fei Farooq MD I personally saw Kathya Hooper and made/approved the management plan and take responsibility for the patient management. In brief, Kathya Hooper is a 68 y.o. that presents to the emergency department for evaluation of altered mental status. Patient sent in with concerns for possible facial droop. Patient states that he is a little bit confused. But when asked about this patient states that that is been an ongoing problem for about 8 months and he has not noticed it being significantly worse. Denies any headache blurry vision double vision hearing changes nausea vomiting chest pain shortness of breath. Denies numbness tingling weakness in the extremities. Focused exam: General appearance: Well-appearing, no acute distress. Psych: Awake alert and oriented ?3. Pleasant and cooperative. Skin: Warm and dry. Neck: Supple. Cardiovascular: Mild tachycardia with regular rhythm Lungs: Clear to auscultation bilaterally, no accessory muscle use, tachypnea, or retractions. Abdomen: Soft, nontender, and nondistended, no rebound, rigidity, or guarding, positive bowel sounds 4 quadrants. Extremities: Warm and well perfused. NROM and SILT throughout upper and lower extermities. Neuro: Cranial nerves II-XII grossly intact. Normal strength and sensation throughout upper and lower extremities. No pronator drift. No focal neurological deficit. NIH 1 for mild right facial droop Brief ED course/MDM: Patient presents emergency department with question of possible facial droop. Patient's last known well was 4 he went to bed overnight. Patient is not a TNK candidate for this reason. Patient does not have signs on examination that would be concerning for a large vessel occlusion. Diagnostics interpreted by me: CT scan(s) no intracranial hemorrhage EMERGENCY DEPARTMENT COURSE and DIFFERENTIAL DIAGNOSIS/MDM: Vitals: Vitals: 10/02/23 0947 10/02/23 1113 BP: 109/61 99/60 BP Location: Left arm Pulse: 109 103 Resp: 16 16 Temp: 36.7 ?C (98 ?F) TempSrc: Oral SpO2: 95% 95% Weight: 92.5 kg (204 lb) All diagnostic, treatment, and disposition decisions were made by myself in conjunction with the YANET/Resident. I also supervised dotson portions of any procedures performed by the YANET/Resident. For all further details of the patient's emergency department visit, please see their documentation. This will serve as my supervisory note and shared attestation. I did perform a substantiative portion of the visit including all aspects of the medical decision making. (Please note that portions of this note may have been completed with a voice recognition program. Efforts were made to edit the dictations but occasionally words are mis-transcribed.) Fei Farooq MD [employer] Fei Farooq MD 10/02/23 1129 Normal [facility] Laboratory - Chemistry and C hemistry - challengeon 10-02-2023 Troponin I.cardiac [Mass/Vol] ng/mL NINF - 0.034 ng/mL [facility] Laboratory - Coagulationon 0 10-02-2023 aPTT Coag (PPP) [Time] 29.6 s 20.0 - 30.5 s [facility] INR Coag (PPP) [Relative time] 1.1 {INR} 0.9 - 1.1 [facility] Comment on above: Recommended Anticoag ulant Therapy: SEE BELOW ----- INR of 2.0 - 3.0 : - Prophylaxis of Venous Thrombosis (high-risk surgery) - Treatment of Venous Thrombosis - Treatment of Pulmonary Embolism (Includes tissue heart valves, Acute Myocardial Infarction to prevent systemic embolism, Valvular Heart Disease, and Atrial Fibrillation) ----- INR of 2.5 - 3.5 : - Mechanical Prosthetic Valves (high risk) - If oral anticoagulant therapy is used to prevent Myocardial Infarction PT Coag (Bld) [Time] 11.6 s 9.0 - 12.0 s [facility] No Panel Informationon 10-01 Heart Rate 103 bpm [facility] P [place] 48 degrees [facility] OR Interval 172 ms [facility] QRS [place] -38 degrees [facility] QRSD Interval 159 ms [facility]val 405 ms [facility] QTC Interval 532 ms [facility] T Wave [place] 109 degrees [facility] Sinus tachycardia Left bundle branch block ST elevation secondary to IVCD Electronically Signed On 10-02-2023 12:40:15 EDT by Fei Farooq CV Fei Lopez MD - 10/02/2023 IMPRESSION: Sinus tachycardia Left bundle branch block ST elevation secondary to IVCD Electronically Signed On 10-02-2023 12:40:15 EDT by Fei Farooq [facility] Interpretation and review of laboratory results Normal [facility] PROTIME AND APTTon aPTT Coag (Bld) [Time] 29.6 s Normal 20.0-30.5 [facility] Comment on above: Performed By: #### L [id number] ####Oncology Transplant Network Manager: CYNDI LILLY ([phone])[facility] ([facility])[address] [place] [address] INR Coag (PPP) [Relative time] 1.1 {INR} Normal 0.9-1.1 [facility] Comment on above: Result Comment: Yefri mmended Anticoagulant Therapy: SEE BELOW ----- INR of 2.0 - 3.0 : - Prophylaxis of Venous Thrombosis (high-risk surgery) - Treatment of Venous Thrombosis - Treatment of Pulmonary Embolism (Includes tissue heart valves, Acute Myocardial Infarction to prevent systemic embolism, Valvular Heart Disease, and Atrial Fibrillation) ----- INR of 2.5 - 3.5 : - Mechanical Prosthetic Valves (high risk) - If oral anticoagulant therapy is used to prevent Myocardial Infarction Performed By: #### L [id number] ####Oncology Transplant Network Manager: CYNDI LILLY ([phone])[facility] ([facility])[address] [place] [address] PT Coag (PPP) [Time] 11.6 s Normal 9.0-12.0 [facility] Comment on above: Performed By: #### L [id number] ####Oncology Transplant Network Manager: CYNDI LILLY ([phone])[facility] ([facility])[address] [place] [address] TROPONIN, WITH SERIAL REFLEX on 10-02-2023 Troponin I.cardiac [Mass/Vol] ng/mL Normal <0.034 [facility] Comment on above: Result Comment: SHARON Stevens COMMENTS: Patients with high levels of Biotin oral intake (ie >5 mg/day) may have falsely decreased Troponin levels. Performed By: #### L [id number], [id number] ####Oncology Transplant Network Manager: CYNDI LILLY ([phone])[facility] ([facility])[address] [place] [address] Troponin I.cardiac [Mass/Vol ]on 10-02-2023 Interpretation and review of laboratory results Normal [facility] Patients with high levels of Biotin oral intake (ie >5 mg/day) may have falsely decreased Troponin levels. [facility] XR Chest Single viewon 10-01 No acute cardiopulmonary disease. Report Dictated on Electronically Signed By: Maria Eugenia Ruiz MD Electronically Signed Date/Time: 10/02/2023 11:06 AM EDT [facility] Patient Name: KATHYA HOOPER : 1955 Exam Date/Time: 10/02/2023 11:11 Procedure: XR CHEST 1 VIEW Ordering Provider: TOLEDO AMY Reason For Exam: DYSPNEA AP CHEST X-RAY CLINICAL INDICATION: DYSPNEA TECHNIQUE: AP portable x-ray of the chest. COMPARISON: March 19, 2021 FINDINGS: Lines/Tubes: None Heart/Mediastinum: Within normal limits Lungs: Well-inflated and clear. No pneumothorax. Bones: Degenerative changes are seen in the thoracic spine and shoulders. No acute osseous findings. [facility] Maria Eugenia Ruiz MD - 10/02/2023 Patient Name: KATHYA HOOPER : 1955 Exam Date/Time: 10/02/2023 11:11 Procedure: XR CHEST 1 VIEW Ordering Provider: TOLEDO AMY Reason For Exam: DYSPNEA AP CHEST X-RAY CLINICAL INDICATION: DYSPNEA TECHNIQUE: AP portable x-ray of the chest. COMPARISON: March 19, 2021 FINDINGS: Lines/Tubes: None Heart/Mediastinum: Within normal limits Lungs: Well-inflated and clear. No pneumothorax. Bones: Degenerative changes are seen in the thoracic spine and shoulders. No acute osseous findings. IMPRESSION: No acute cardiopulmonary disease. Report Dictated on Electronically Signed By: Maria Eugenia Ruiz MD Electronically Signed Date/Time: 10/02/2023 11:06 AM EDT [facility] Radiology Study observation (narrative) [facility] Absolute lymphocyte countOrd ered By: Renard Burgos on 08-07-2023 Lymphocytes Auto (Unsp spec) [#/Vol] 2.23 10*3/uL 0.83-4.51 [facility] Automated lymphocyte count a s percentage of total leukocytesOrdered By: Renard Burgos on 08-07-2023 Lymphocytes/100 WBC Auto (Unsp spec) 23.9 % 19-41 [facility] Basophil percentageOrdered B y: Renard Burgos on 08-07-2023 Basophils/100 WBC (Bld) 0.4 % 0-1 [facility] Eosinophils/100 WBC (Bld) 0.4 % 0-5 [facility] Hemoglobin (Bld) [Mass/Vol] 13.9 g/dL 13.0-16.5 [facility] Monocytes/100 WBC (Bld) 8.0 % 0-10 [facility] Neutrophils (Bld) [#/Vol] 6.2 10*3/uL 2.0-7.7 [facility] Neutrophils/100 WBC (Bld) 66.9 % 47-70 [facility] WBC (Bld) [#/Vol] 9.3 10*3/uL 4.4-11.0 [facility] Determination of erythrocyte mean corpuscular volume (MCV)Ordered By: Renard Burgos on 08-07-2023 MCV (RBC) [Entitic vol] 90.0 fL 80-94 [facility] Erythrocyte distribution wid th ratioOrdered By: Renard Burgos on 08-07-2023 Erythrocyte distribution width (RBC) [Ratio] 13.0 % 11.6-14.6 [facility] Erythrocyte distribution wid th standard deviationOrdered By: Renard Burgos on 08-07-2023 Erythrocyte distribution width (RBC) [Entitic vol] 42.5 fL 35.1-43.9 [facility] Hematocrit Auto (Bld) [Volum e fraction]Ordered By: Renard Burgos on 08-07-2023 Hematocrit (Bld) [Volume fraction] 42.5 % 40-54 [facility] Immature granulocytes/100 WB C Auto (Bld)Ordered By: Renard Burgos on 08-07-2023 Immature granulocytes/100 WBC (Bld) 0.400 % 0.0-0.9 [facility] Comment on above: IG% - Immature Granu locytes (promyelocytes, myelocytes and metamyelocytes) > 1% indicates that a LEFT SHIFT is Present. Laboratory - Hematology and Cell countsOrdered By: Renard Burgos on 08-07-2023 MCH (RBC) [Entitic mass] 29.4 pg 27.0-32.0 [facility] MCHC (RBC) [Mass/Vol] 32.7 g/dL 32-36 [facility] Nucleated RBC/100 WBC (Bld) [Ratio] 0 % 0-5 [facility] Platelet mean volume (Bld) [Entitic vol] 10.7 fL 6.2-12.0 [facility] Platelets (Bld) [#/Vol] 210 10*3/uL 150-450 [facility] RBC Auto (Bld) [#/Vol]Ordere d By: Renard Burgos on 08-07-2023 RBC (Bld) [#/Vol] 4.72 10*6/uL 4.6-6.[address] [facility] Absolute lymphocyte countOrd ered By: Renard Burgos on 07-31-2023 Lymphocytes Auto (Unsp spec) [#/Vol] 2.04 10*3/uL 0.83-4.51 [facility] Automated lymphocyte count a s percentage of total leukocytesOrdered By: Renard Burgos on 07-31-2023 Lymphocytes/100 WBC Auto (Unsp spec) 24.2 % 19-41 [facility] Basophil percentageOrdered B y: Renard Burgos on 07-31-2023 Basophils/100 WBC (Bld) 0.6 % 0-1 [facility] Eosinophils/100 WBC (Bld) 0.6 % 0-5 [facility] Hemoglobin (Bld) [Mass/Vol] 13.9 g/dL 13.0-16.5 [facility] Monocytes/100 WBC (Bld) 8.5 % 0-10 [facility] Neutrophils (Bld) [#/Vol] 5.5 10*3/uL 2.0-7.7 [facility] Neutrophils/100 WBC (Bld) 65.7 % 47-70 [facility] WBC (Bld) [#/Vol] 8.4 10*3/uL 4.4-11.0 [facility] Determination of erythrocyte mean corpuscular volume (MCV)Ordered By: Renard Burgos on 07-31-2023 MCV (RBC) [Entitic vol] 89.7 fL 80-94 [facility] Erythrocyte distribution wid th ratioOrdered By: Renard Burgos on 07-31-2023 Erythrocyte distribution width (RBC) [Ratio] 12.8 % 11.6-14.6 [facility] Erythrocyte distribution wid th standard deviationOrdered By: Renard Burgos on 07-31-2023 Erythrocyte distribution width (RBC) [Entitic vol] 42.2 fL 35.1-43.9 [facility] Hematocrit Auto (Bld) [Volum e fraction]Ordered By: Renard Burgos on 07-31-2023 Hematocrit (Bld) [Volume fraction] 41.7 % 40-54 [facility] Immature granulocytes/100 WB C Auto (Bld)Ordered By: Renard Burgos on 07-31-2023 Immature granulocytes/100 WBC (Bld) 0.400 % 0.0-0.9 [facility] Comment on above: IG% - Immature Granu locytes (promyelocytes, myelocytes and metamyelocytes) > 1% indicates that a LEFT SHIFT is Present. Laboratory - Hematology and Cell countsOrdered By: Renard Burgos on 07-31-2023 MCH (RBC) [Entitic mass] 29.9 pg 27.0-32.0 [facility] MCHC (RBC) [Mass/Vol] 33.3 g/dL 32-36 [facility] Nucleated RBC/100 WBC (Bld) [Ratio] 0 % 0-5 [facility] Platelet mean volume (Bld) [Entitic vol] 10.6 fL 6.2-12.0 [facility] Platelets (Bld) [#/Vol] 201 10*3/uL 150-450 [facility] RBC Auto (Bld) [#/Vol]Ordere d By: Renard Burgos on 07-31-2023 RBC (Bld) [#/Vol] 4.65 10*6/uL 4.6-6.[address] [facility] Absolute lymphocyte countOrd ered By: Renard Burgos on 07-24-2023 Lymphocytes Auto (Unsp spec) [#/Vol] 2.00 10*3/uL 0.83-4.51 [facility] Automated lymphocyte count a s percentage of total leukocytesOrdered By: Renard Burgos on 07-24-2023 Lymphocytes/100 WBC Auto (Unsp spec) 26.2 % 19-41 [facility] Basophil percentageOrdered B y: Renard Burgos on 07-24-2023 Basophils/100 WBC (Bld) 0.7 % 0-1 [facility] Eosinophils/100 WBC (Bld) 0.7 % 0-5 [facility] Hemoglobin (Bld) [Mass/Vol] 14.2 g/dL 13.0-16.5 [facility] Monocytes/100 WBC (Bld) 6.4 % 0-10 [facility] Neutrophils (Bld) [#/Vol] 5.0 10*3/uL 2.0-7.7 [facility] Neutrophils/100 WBC (Bld) 65.6 % 47-70 [facility] WBC (Bld) [#/Vol] 7.6 10*3/uL 4.4-11.0 [facility] Determination of erythrocyte mean corpuscular volume (MCV)Ordered By: Renard Burgos on 07-24-2023 MCV (RBC) [Entitic vol] 89.8 fL 80-94 [facility] Erythrocyte distribution wid th ratioOrdered By: Renard Burgos on 07-24-2023 Erythrocyte distribution width (RBC) [Ratio] 12.8 % 11.6-14.6 [facility] Erythrocyte distribution wid th standard deviationOrdered By: Renard Burgos on 07-24-2023 Erythrocyte distribution width (RBC) [Entitic vol] 42.0 fL 35.1-43.9 [facility] Hematocrit Auto (Bld) [Volum e fraction]Ordered By: Renard Burgos on 07-24-2023 Hematocrit (Bld) [Volume fraction] 43.3 % 40-54 [facility] Immature granulocytes/100 WB C Auto (Bld)Ordered By: Renard Burgos on 07-24-2023 Immature granulocytes/100 WBC (Bld) 0.400 % 0.0-0.9 [facility] Comment on above: IG% - Immature Granu locytes (promyelocytes, myelocytes and metamyelocytes) > 1% indicates that a LEFT SHIFT is Present. Laboratory - Hematology and Cell countsOrdered By: Renard Burgos on 07-24-2023 MCH (RBC) [Entitic mass] 29.5 pg 27.0-32.0 [facility] MCHC (RBC) [Mass/Vol] 32.8 g/dL 32-36 [facility] Nucle[facility] RBC/100 WBC (Bld) [Ratio] 0 % 0-5 [facility] Platelet mean volume (Bld) [Entitic vol] 11.0 fL 6.2-12.0 [facility] Platelets (Bld) [#/Vol] 215 10*3/uL 150-450 [facility] RBC Auto (Bld) [#/Vol]Ordere d By: Renard Burgos on 07-24-2023 RBC (Bld) [#/Vol] 4.82 10*6/uL 4.6-6.[address] [facility] Absolute lymphocyte countOrd ered By: Renard Burgos on 07-17-2023 Lymphocytes Auto (Unsp spec) [#/Vol] 2.22 10*3/uL 0.83-4.51 [facility] Automated lymphocyte count a s percentage of total leukocytesOrdered By: Renard Burgos on 07-17-2023 Lymphocytes/100 WBC Auto (Unsp spec) 25.4 % 19-41 [facility] Basophil percentageOrdered B y: Renard Burgos on 07-17-2023 Basophils/100 WBC (Bld) 0.5 % 0-1 [facility] Cholesterol [Mass/Vol] 126 mg/dL <200 [facility] Comment on above: <200 mg/dL Desirable 200-240 mg/dL Borderline >240 mg/dL High Risk Eosinophils/100 WBC (Bld) 0.6 % 0-5 [facility] Hemoglobin (Bld) [Mass/Vol] 14.0 g/dL 13.0-16.5 [facility] Monocytes/100 WBC (Bld) 6.6 % 0-10 [facility] Neutrophils (Bld) [#/Vol] 5.8 10*3/uL 2.0-7.7 [facility] Neutrophils/100 WBC (Bld) 66.4 % 47-70 [facility] Triglyceride [Mass/Vol] 176 mg/dL <199 [facility] Comment on above: The drugs N-Acetylcy steine and Metamizole may falsely depress this assay.Serum Triglycerides Reference Interval Normal <150 mg/dL Borderline high 150 - 199 mg/dL High 200 - 499 mg/dL Very High > or = 500 mg/dL WBC (Bld) [#/Vol] 8.7 10*3/uL 4.4-11.0 [facility] Determination of erythrocyte mean corpuscular volume (MCV)Ordered By: Renard Burgos on 07-17-2023 MCV (RBC) [Entitic vol] 90.5 fL 80-94 [facility] Erythrocyte distribution wid th ratioOrdered By: Renard Burgos on 07-17-2023 Erythrocyte distribution width (RBC) [Ratio] 12.4 % 11.6-14.6 [facility] Erythrocyte distribution wid th standard deviationOrdered By: Renard Burgos on 07-17-2023 Erythrocyte distribution width (RBC) [Entitic vol] 41.1 fL 35.1-43.9 [facility] Hematocrit Auto (Bld) [Volum e fraction]Ordered By: Renard Burgos on 07-17-2023 Hematocrit (Bld) [Volume fraction] 42.8 % 40-54 [facility] Immature granulocytes/100 WB C Auto (Bld)Ordered By: Renard Burgos on 07-17-2023 Immature granulocytes/100 WBC (Bld) 0.500 % 0.0-0.9 [facility] Comment on above: IG% - Immature Granu locytes (promyelocytes, myelocytes and metamyelocytes) > 1% indicates that a LEFT SHIFT is Present. Laboratory - Chemistry and C hemistry - challengeOrdered By: Renard Burgos on 07-17-2023 Cholesterol in HDL [Mass/Vol] 28 mg/dL >40 [facility] Comment on above: The drugs N-Acetylcy steine and Metamizole may falsely depress this assay. Reference Range HDL <40 mg/dL Low HDL Cholesterol HDL >or= 60 mg/dL High HDL Cholesterol Cholesterol in LDL [Mass/Vol] 63 mg/dL 0-130 [facility] Laboratory - Hematology and Cell countsOrdered By: Renard Burgos on 07-17-2023 MCH (RBC) [Entitic mass] 29.6 pg 27.0-32.0 [facility] MCHC (RBC) [Mass/Vol] 32.7 g/dL 32-36 [facility] Nucleated RBC/100 WBC (Bld) [Ratio] 0 % 0-5 [facility] Platelet mean volume (Bld) [Entitic vol] 10.9 fL 6.2-12.0 [facility] Platelets (Bld) [#/Vol] 193 10*3/uL 150-450 [facility] No Panel InformationOrdered By: Renard Burgos on 07-17-2023 Vitamin D 25-Hydroxy 33.1 ng/mL [facility] Comment on above: Vitamin D 25(OH) Sta tus Range Deficiency <20 ng/mL (50nmol/L) Insufficiency 20 - 30 ng/mL (50 - 75 nmol/L) Sufficiency 30 - 100 ng/mL (75 - 250 nmol/L) Toxicity >100 ng/mL (>250 nmol/L) VLDL Cholesterol 35 mg/dL 5-40 [facility] RBC Auto (Bld) [#/Vol]Ordere d By: Renard Burgos on 07-17-2023 RBC (Bld) [#/Vol] 4.73 10*6/uL 4.6-6.[address] [facility] Absolute lymphocyte countOrd ered By: Renard Burgos on 07-10-2023 Lymphocytes Auto (Unsp spec) [#/Vol] 2.14 10*3/uL 0.83-4.51 [facility] Automated lymphocyte count a s percentage of total leukocytesOrdered By: Renard Burgos on 07-10-2023 Lymphocytes/100 WBC Auto (Unsp spec) 24.7 % 19-41 [facility] Basophil percentageOrdered B y: Renard Burgos on 07-10-2023 Basophils/100 WBC (Bld) 0.3 % 0-1 [facility] Eosinophils/100 WBC (Bld) 0.3 % 0-5 [facility] Hemoglobin (Bld) [Mass/Vol] 13.8 g/dL 13.0-16.5 [facility] Monocytes/100 WBC (Bld) 7.8 % 0-10 [facility] Neutrophils (Bld) [#/Vol] 5.8 10*3/uL 2.0-7.7 [facility] Neutrophils/100 WBC (Bld) 66.4 % 47-70 [facility] WBC (Bld) [#/Vol] 8.7 10*3/uL 4.4-11.0 [facility] Determination of erythrocyte mean corpuscular volume (MCV)Ordered By: Renard Burgos on 07-10-2023 MCV (RBC) [Entitic vol] 88.9 fL 80-94 [facility] Erythrocyte distribution wid th ratioOrdered By: Renard Burgos on 07-10-2023 Erythrocyte distribution width (RBC) [Ratio] 12.6 % 11.6-14.6 [facility] Erythrocyte distribution wid th standard deviationOrdered By: Renard Burgos on 07-10-2023 Erythrocyte distribution width (RBC) [Entitic vol] 40.6 fL 35.1-43.9 [facility] Hematocrit Auto (Bld) [Volum e fraction]Ordered By: Renard Burgos on 07-10-2023 Hematocrit (Bld) [Volume fraction] 41.0 % 40-54 [facility] Immature granulocytes/100 WB C Auto (Bld)Ordered By: Renard Burgos on 07-10-2023 Immature granulocytes/100 WBC (Bld) 0.500 % 0.0-0.9 [facility] Comment on above: IG% - Immature Granu locytes (promyelocytes, myelocytes and metamyelocytes) > 1% indicates that a LEFT SHIFT is Present. Laboratory - Hematology and Cell countsOrdered By: Renard Burgos on 07-10-2023 MCH (RBC) [Entitic mass] 29.9 pg 27.0-32.0 [facility] MCHC (RBC) [Mass/Vol] 33.7 g/dL 32-36 [facility] Nucleated RBC/100 WBC (Bld) [Ratio] 0 % 0-5 [facility] Platelet mean volume (Bld) [Entitic vol] 11.0 fL 6.2-12.0 [facility] Platelets (Bld) [#/Vol] 215 10*3/uL 150-450 [facility] RBC Auto (Bld) [#/Vol]Ordere d By: Renard Burgos on 07-10-2023 RBC (Bld) [#/Vol] 4.61 10*6/uL 4.6-6.[address] [facility] Absolute lymphocyte countOrd ered By: Renard Burgos on 07-03-2023 Lymphocytes Auto (Unsp spec) [#/Vol] 1.84 10*3/uL 0.83-4.51 [facility] Automated lymphocyte count a s percentage of total leukocytesOrdered By: Renard Burgos on 07-03-2023 Lymphocytes/100 WBC Auto (Unsp spec) 16.9 % 19-41 [facility] Basophil percentageOrdered B y: Renard Burgos on 07-03-2023 Basophil percentage 3.17 ng/mL 0.0-4.[address] [facility] Comment on above: This test was perfor med using the TPSA assay method for the[employer] chemistry system. Values obtained with differentassay methods cannot be used interchangably.When changing PSA assays in the course of monitoring apatient, additional sequential testing should be carriedout to confirm baseline values. Basophils/100 WBC (Bld) 0.5 % 0-1 [facility] Eosinophils/100 WBC (Bld) 0.4 % 0-5 [facility] Hemoglobin (Bld) [Mass/Vol] 13.2 g/dL 13.0-16.5 [facility] Monocytes/100 WBC (Bld) 7.4 % 0-10 [facility] Neutrophils (Bld) [#/Vol] 8.1 10*3/uL 2.0-7.7 [facility] Neutrophils/100 WBC (Bld) 74.4 % 47-70 [facility] WBC (Bld) [#/Vol] 10.9 10*3/uL 4.4-11.[address] [facility] Determination of erythrocyte mean corpuscular volume (MCV)Ordered By: Renard Burgos on 07-03-2023 MCV (RBC) [Entitic vol] 89.8 fL 80-94 [facility] Erythrocyte distribution wid th ratioOrdered By: Renard Burgos on 07-03-2023 Erythrocyte distribution width (RBC) [Ratio] 12.7 % 11.6-14.6 [facility] Erythrocyte distribution wid th standard deviationOrdered By: Renard Burgos on 07-03-2023 Erythrocyte distribution width (RBC) [Entitic vol] 41.9 fL 35.1-43.9 [facility] Hematocrit Auto (Bld) [Volum e fraction]Ordered By: Renard Burgos on 07-03-2023 Hematocrit (Bld) [Volume fraction] 40.3 % 40-54 [facility] Immature granulocytes/100 WB C Auto (Bld)Ordered By: Rneard Burgos on 07-03-2023 Immature granulocytes/100 WBC (Bld) 0.400 % 0.0-0.9 [facility] Comment on above: IG% - Immature Granu locytes (promyelocytes, myelocytes and metamyelocytes) > 1% indicates that a LEFT SHIFT is Present. Laboratory - Hematology and Cell countsOrdered By: Renard Burgos on 07-03-2023 MCH (RBC) [Entitic mass] 29.4 pg 27.0-32.0 [facility] MCHC (RBC) [Mass/Vol] 32.8 g/dL 32-36 [facility] Nucleated RBC/100 WBC (Bld) [Ratio] 0 % 0-5 [facility] Platelet mean volume (Bld) [Entitic vol] 11.2 fL 6.2-12.0 [facility] Platelets (Bld) [#/Vol] 191 10*3/uL 150-450 [facility] RBC Auto (Bld) [#/Vol]Ordere d By: Renard Burgos on 07-03-2023 RBC (Bld) [#/Vol] 4.49 10*6/uL 4.6-6.[address] [facility] Absolute lymphocyte countOrd ered By: Renard Burgos on 06-26-2023 Lymphocytes Auto (Unsp spec) [#/Vol] 2.23 10*3/uL 0.83-4.51 [facility] Automated lymphocyte count a s percentage of total leukocytesOrdered By: Renard Burgos on 06-26-2023 Lymphocytes/100 WBC Auto (Unsp spec) 27.3 % 19-41 [facility] Basophil percentageOrdered B y: Renard Burgos on 06-26-2023 Basophils/100 WBC (Bld) 0.5 % 0-1 [facility] Eosinophils/100 WBC (Bld) 0.7 % 0-5 [facility] Hemoglobin (Bld) [Mass/Vol] 13.7 g/dL 13.0-16.5 [facility] Monocytes/100 WBC (Bld) 9.5 % 0-10 [facility] Neutrophils (Bld) [#/Vol] 5.1 10*3/uL 2.0-7.7 [facility] Neutrophils/100 WBC (Bld) 61.8 % 47-70 [facility] WBC (Bld) [#/Vol] 8.2 10*3/uL 4.4-11.0 [facility] Determination of erythrocyte mean corpuscular volume (MCV)Ordered By: Renard Burgos on 06-26-2023 MCV (RBC) [Entitic vol] 92.2 fL 80-94 [facility] Erythrocyte distribution wid th ratioOrdered By: Renard Burgos on 06-26-2023 Erythrocyte distribution width (RBC) [Ratio] 12.7 % 11.6-14.6 [facility] Erythrocyte distribution wid th standard deviationOrdered By: Renard Burgos on 06-26-2023 Erythrocyte distribution width (RBC) [Entitic vol] 42.8 fL 35.1-43.9 [facility] Hematocrit Auto (Bld) [Volum e fraction]Ordered By: Renard Burgos on 06-26-2023 Hematocrit (Bld) [Volume fraction] 42.6 % 40-54 [facility] Immature granulocytes/100 WB C Auto (Bld)Ordered By: Renard Burgos on 06-26-2023 Immature granulocytes/100 WBC (Bld) 0.200 % 0.0-0.9 [facility] Comment on above: IG% - Immature Granu locytes (promyelocytes, myelocytes and metamyelocytes) > 1% indicates that a LEFT SHIFT is Present. Laboratory - Hematology and Cell countsOrdered By: Renard Burgos on 06-26-2023 MCH (RBC) [Entitic mass] 29.7 pg 27.0-32.0 [facility] MCHC (RBC) [Mass/Vol] 32.2 g/dL 32-36 [facility] Nucleated RBC/100 WBC (Bld) [Ratio] 0 % 0-5 [facility] Platelet mean volume (Bld) [Entitic vol] 11.0 fL 6.2-12.0 [facility] Platelets (Bld) [#/Vol] 182 10*3/uL 150-450 [facility] RBC Auto (Bld) [#/Vol]Ordere d By: Renard Burgos on 06-26-2023 RBC (Bld) [#/Vol] 4.62 10*6/uL 4.6-6.[address] [facility] Absolute lymphocyte countOrd ered By: Renard Burgos on 06-19-2023 Lymphocytes Auto (Unsp spec) [#/Vol] 2.13 10*3/uL 0.83-4.51 [facility] Automated lymphocyte count a s percentage of total leukocytesOrdered By: Renard Burgos on 06-19-2023 Lymphocytes/100 WBC Auto (Unsp spec) 28.8 % 19-41 [facility] Basophil percentageOrdered B y: Renard Burgos on 06-19-2023 Basophils/100 WBC (Bld) 0.5 % 0-1 [facility] Eosinophils/100 WBC (Bld) 0.5 % 0-5 [facility] Hemoglobin (Bld) [Mass/Vol] 13.7 g/dL 13.0-16.5 [facility] Monocytes/100 WBC (Bld) 8.1 % 0-10 [facility] Neutrophils (Bld) [#/Vol] 4.6 10*3/uL 2.0-7.7 [facility] Neutrophils/100 WBC (Bld) 61.6 % 47-70 [facility] WBC (Bld) [#/Vol] 7.4 10*3/uL 4.4-11.0 [facility] Determination of erythrocyte mean corpuscular volume (MCV)Ordered By: Renard Burgos on 06-19-2023 MCV (RBC) [Entitic vol] 91.7 fL 80-94 [facility] Erythrocyte distribution wid th ratioOrdered By: Renard Burgos on 06-19-2023 Erythrocyte distribution width (RBC) [Ratio] 12.7 % 11.6-14.6 [facility] Erythrocyte distribution wid th standard deviationOrdered By: Renard Burgos on 06-19-2023 Erythrocyte distribution width (RBC) [Entitic vol] 42.8 fL 35.1-43.9 [facility] Hematocrit Auto (Bld) [Volum e fraction]Ordered By: Renard Burgos on 06-19-2023 Hematocrit (Bld) [Volume fraction] 43.1 % 40-54 [facility] Immature granulocytes/100 WB C Auto (Bld)Ordered By: Renard Burgos on 06-19-2023 Immature granulocytes/100 WBC (Bld) 0.500 % 0.0-0.9 [facility] Comment on above: IG% - Immature Granu locytes (promyelocytes, myelocytes and metamyelocytes) > 1% indicates that a LEFT SHIFT is Present. Laboratory - Hematology and Cell countsOrdered By: Renard Burgos on 06-19-2023 MCH (RBC) [Entitic mass] 29.1 pg 27.0-32.0 [facility] MCHC (RBC) [Mass/Vol] 31.8 g/dL 32-36 [facility] Nucleated RBC/100 WBC (Bld) [Ratio] 0 % 0-5 [facility] Platelet mean volume (Bld) [Entitic vol] 11.1 fL 6.2-12.0 [facility] Platelets (Bld) [#/Vol] 201 10*3/uL 150-450 [facility] RBC Auto (Bld) [#/Vol]Ordere d By: Renard Burgos on 06-19-2023 RBC (Bld) [#/Vol] 4.70 10*6/uL 4.6-6.[address] [facility] Absolute lymphocyte countOrd ered By: Renard Burgos on 06-12-2023 Lymphocytes Auto (Unsp spec) [#/Vol] 2.17 10*3/uL 0.83-4.51 [facility] Automated lymphocyte count a s percentage of total leukocytesOrdered By: Renard Burgos on 06-12-2023 Lymphocytes/100 WBC Auto (Unsp spec) 26.7 % 19-41 [facility] Basophil percentageOrdered B y: Renard Burgos on 06-12-2023 Basophils/100 WBC (Bld) 0.4 % 0-1 [facility] Eosinophils/100 WBC (Bld) 0.5 % 0-5 [facility] Hemoglobin (Bld) [Mass/Vol] 13.5 g/dL 13.0-16.5 [facility] Monocytes/100 WBC (Bld) 9.0 % 0-10 [facility] Neutrophils (Bld) [#/Vol] 5.1 10*3/uL 2.0-7.7 [facility] Neutrophils/100 WBC (Bld) 63.0 % 47-70 [facility] WBC (Bld) [#/Vol] 8.1 10*3/uL 4.4-11.0 [facility] Determination of erythrocyte mean corpuscular volume (MCV)Ordered By: Renard Burgos on 06-12-2023 MCV (RBC) [Entitic vol] 91.3 fL 80-94 [facility] Erythrocyte distribution wid th ratioOrdered By: Renard Burgos on 06-12-2023 Erythrocyte distribution width (RBC) [Ratio] 12.6 % 11.6-14.6 [facility] Erythrocyte distribution wid th standard deviationOrdered By: Renard Burgos on 06-12-2023 Erythrocyte distribution width (RBC) [Entitic vol] 41.5 fL 35.1-43.9 [facility] Hematocrit Auto (Bld) [Volum e fraction]Ordered By: Renard Burgos on 06-12-2023 Hematocrit (Bld) [Volume fraction] 40.8 % 40-54 [facility] Immature granulocytes/100 WB C Auto (Bld)Ordered By: Renard Burgos on 06-12-2023 Immature granulocytes/100 WBC (Bld) 0.400 % 0.0-0.9 [facility] Comment on above: IG% - Immature Granu locytes (promyelocytes, myelocytes and metamyelocytes) > 1% indicates that a LEFT SHIFT is Present. Laboratory - Hematology and Cell countsOrdered By: Renard Burgos on 06-12-2023 MCH (RBC) [Entitic mass] 30.2 pg 27.0-32.0 [facility] MCHC (RBC) [Mass/Vol] 33.1 g/dL 32-36 [facility] Nucleated RBC/100 WBC (Bld) [Ratio] 0 % 0-5 [facility] Platelet mean volume (Bld) [Entitic vol] 11.0 fL 6.2-12.0 [facility] Platelets (Bld) [#/Vol] 195 10*3/uL 150-450 [facility] RBC Auto (Bld) [#/Vol]Ordere d By: Renard Burgos on 06-12-2023 RBC (Bld) [#/Vol] 4.47 10*6/uL 4.6-6.[address] [facility] Absolute lymphocyte countOrd ered By: Renard Burgos on 06-05-2023 Lymphocytes Auto (Unsp spec) [#/Vol] 2.05 10*3/uL 0.83-4.51 [facility] Automated lymphocyte count a s percentage of total leukocytesOrdered By: Renard Burgos on 06-05-2023 Lymphocytes/100 WBC Auto (Unsp spec) 24.1 % 19-41 [facility] Basophil percentageOrdered B y: Renard Burgos on 06-05-2023 Basophils/100 WBC (Bld) 0.5 % 0-1 [facility] Eosinophils/100 WBC (Bld) 0.5 % 0-5 [facility] Hemoglobin (Bld) [Mass/Vol] 13.6 g/dL 13.0-16.5 [facility] Monocytes/100 WBC (Bld) 7.6 % 0-10 [facility] Neutrophils (Bld) [#/Vol] 5.7 10*3/uL 2.0-7.7 [facility] Neutrophils/100 WBC (Bld) 66.9 % 47-70 [facility] WBC (Bld) [#/Vol] 8.5 10*3/uL 4.4-11.0 [facility] Determination of erythrocyte mean corpuscular volume (MCV)Ordered By: Renard Burgos on 06-05-2023 MCV (RBC) [Entitic vol] 89.7 fL 80-94 [facility] Erythrocyte distribution wid th ratioOrdered By: Renard Burgos on 06-05-2023 Erythrocyte distribution width (RBC) [Ratio] 12.6 % 11.6-14.6 [facility] Erythrocyte distribution wid th standard deviationOrdered By: Renard Burgos on 06-05-2023 Erythrocyte distribution width (RBC) [Entitic vol] 41.1 fL 35.1-43.9 [facility] Hematocrit Auto (Bld) [Volum e fraction]Ordered By: Renard Burgos on 06-05-2023 Hematocrit (Bld) [Volume fraction] 41.0 % 40-54 [facility] Immature granulocytes/100 WB C Auto (Bld)Ordered By: Renard Burgos on 06-05-2023 Immature granulocytes/100 WBC (Bld) 0.400 % 0.0-0.9 [facility] Comment on above: IG% - Immature Granu locytes (promyelocytes, myelocytes and metamyelocytes) > 1% indicates that a LEFT SHIFT is Present. Laboratory - Hematology and Cell countsOrdered By: Renard Burgos on 06-05-2023 MCH (RBC) [Entitic mass] 29.8 pg 27.0-32.0 [facility] MCHC (RBC) [Mass/Vol] 33.2 g/dL 32-36 [facility] Nucleated RBC/100 WBC (Bld) [Ratio] 0 % 0-5 [facility] Platelets (Bld) [#/Vol] 193 10*3/uL 150-450 [facility] Platelet mean volume Adam-Ec ker (Bld) [Entitic vol]Ordered By: Renard Burgos on 06-05-2023 Platelet mean volume (Bld) [Entitic vol] 10.8 fL 6.2-12.0 [facility] RBC Auto (Bld) [#/Vol]Ordere d By: Renard Burgos on 06-05-2023 RBC (Bld) [#/Vol] 4.57 10*6/uL 4.6-6.[address] [facility] Absolute lymphocyte countOrd ered By: Renard Burgos on 05-29-2023 Lymphocytes Auto (Unsp spec) [#/Vol] 2.32 10*3/uL 0.83-4.51 [facility] Automated lymphocyte count a s percentage of total leukocytesOrdered By: Renard Burgos on 05-29-2023 Lymphocytes/100 WBC Auto (Unsp spec) 26.7 % 19-41 [facility] Basophil percentageOrdered B y: Renard Burgos on 05-29-2023 Basophils/100 WBC (Bld) 0.6 % 0-1 [facility] Eosinophils/100 WBC (Bld) 0.5 % 0-5 [facility] Hemoglobin (Bld) [Mass/Vol] 14.2 g/dL 13.0-16.5 [facility] Monocytes/100 WBC (Bld) 6.8 % 0-10 [facility] Neutrophils (Bld) [#/Vol] 5.7 10*3/uL 2.0-7.7 [facility] Neutrophils/100 WBC (Bld) 65.2 % 47-70 [facility] WBC (Bld) [#/Vol] 8.7 10*3/uL 4.4-11.0 [facility] Determination of erythrocyte mean corpuscular volume (MCV)Ordered By: Renard Burgos on 05-29-2023 MCV (RBC) [Entitic vol] 94.0 fL 80-94 [facility] Erythrocyte distribution wid th ratioOrdered By: Renard Burgos on 05-29-2023 Erythrocyte distribution width (RBC) [Ratio] 12.6 % 11.6-14.6 [facility] Erythrocyte distribution wid th standard deviationOrdered By: Renard Burgos on 05-29-2023 Erythrocyte distribution width (RBC) [Entitic vol] 43.0 fL 35.1-43.9 [facility] Hematocrit Auto (Bld) [Volum e fraction]Ordered By: Renard Burgos on 05-29-2023 Hematocrit (Bld) [Volume fraction] 45.4 % 40-54 [facility] Immature granulocytes/100 WB C Auto (Bld)Ordered By: Renard Burgos on 05-29-2023 Immature granulocytes/100 WBC (Bld) 0.200 % 0.0-0.9 [facility] Comment on above: IG% - Immature Granu locytes (promyelocytes, myelocytes and metamyelocytes) > 1% indicates that a LEFT SHIFT is Present. Laboratory - Hematology and Cell countsOrdered By: Renard Burgos on 05-29-2023 MCH (RBC) [Entitic mass] 29.4 pg 27.0-32.0 [facility] MCHC (RBC) [Mass/Vol] 31.3 g/dL 32-36 [facility] Nucleated RBC/100 WBC (Bld) [Ratio] 0 % 0-5 [facility] Platelets (Bld) [#/Vol] 116 10*3/uL 150-450 [facility] Platelet mean volume Adam-Ec ker (Bld) [Entitic vol]Ordered By: Renard Burgos on 05-29-2023 Platelet mean volume (Bld) [Entitic vol] 11.1 fL 6.2-12.0 [facility] RBC Auto (Bld) [#/Vol]Ordere d By: Renard Burgos on 05-29-2023 RBC (Bld) [#/Vol] 4.83 10*6/uL 4.6-6.[address] [facility] Absolute lymphocyte countOrd ered By: Renard Burgos on 05-22-2023 Lymphocytes Auto (Unsp spec) [#/Vol] 2.40 10*3/uL 0.83-4.51 [facility] Automated lymphocyte count a s percentage of total leukocytesOrdered By: Renard Burgos on 05-22-2023 Lymphocytes/100 WBC Auto (Unsp spec) 25.6 % 19-41 [facility] Basophil percentageOrdered B y: Renard Burgos on 05-22-2023 Basophils/100 WBC (Bld) 0.4 % 0-1 [facility] Eosinophils/100 WBC (Bld) 0.4 % 0-5 [facility] Hemoglobin (Bld) [Mass/Vol] 13.7 g/dL 13.0-16.5 [facility] Monocytes/100 WBC (Bld) 9.1 % 0-10 [facility] Neutrophils (Bld) [#/Vol] 6.0 10*3/uL 2.0-7.7 [facility] Neutrophils/100 WBC (Bld) 63.9 % 47-70 [facility] WBC (Bld) [#/Vol] 9.4 10*3/uL 4.4-11.0 [facility] Determination of erythrocyte mean corpuscular volume (MCV)Ordered By: Renard Burgos on 05-22-2023 MCV (RBC) [Entitic vol] 91.8 fL 80-94 [facility] Erythrocyte distribution wid th ratioOrdered By: Renard Burgos on 05-22-2023 Erythrocyte distribution width (RBC) [Ratio] 12.8 % 11.6-14.6 [facility] Erythrocyte distribution wid th standard deviationOrdered By: Renard Burgos on 05-22-2023 Erythrocyte distribution width (RBC) [Entitic vol] 43.4 fL 35.1-43.9 [facility] Hematocrit Auto (Bld) [Volum e fraction]Ordered By: Renard Burgos on 05-22-2023 Hematocrit (Bld) [Volume fraction] 41.5 % 40-54 [facility] Immature granulocytes/100 WB C Auto (Bld)Ordered By: Renard Burgos on 05-22-2023 Immature granulocytes/100 WBC (Bld) 0.600 % 0.0-0.9 [facility] Comment on above: IG% - Immature Granu locytes (promyelocytes, myelocytes and metamyelocytes) > 1% indicates that a LEFT SHIFT is Present. Laboratory - Hematology and Cell countsOrdered By: Renard Burgos on 05-22-2023 MCH (RBC) [Entitic mass] 30.3 pg 27.0-32.0 [facility] MCHC (RBC) [Mass/Vol] 33.0 g/dL 32-36 [facility] Nucleated RBC/100 WBC (Bld) [Ratio] 0 % 0-5 [facility] Platelets (Bld) [#/Vol] 192 10*3/uL 150-450 [facility] Platelet mean volume Adam-Ec ker (Bld) [Entitic vol]Ordered By: Renard Burgos on 05-22-2023 Platelet mean volume (Bld) [Entitic vol] 11.3 fL 6.2-12.0 [facility] RBC Auto (Bld) [#/Vol]Ordere d By: Renard Burgos on 05-22-2023 RBC (Bld) [#/Vol] 4.52 10*6/uL 4.6-6.[address] [facility] Absolute lymphocyte countOrd ered By: Renard Burgos on 05-15-2023 Lymphocytes Auto (Unsp spec) [#/Vol] 2.11 10*3/uL 0.83-4.51 [facility] Basophil percentageOrdered B y: Renard Burgos on 05-15-2023 Basophils/100 WBC (Bld) 0.6 % 0-1 [facility] Eosinophils/100 WBC (Bld) 0.8 % 0-5 [facility] Neutrophils (Bld) [#/Vol] 4.9 10*3/uL 2.0-7.7 [facility] Neutrophils/100 WBC (Bld) 62.4 % 47-70 [facility] WBC (Bld) [#/Vol] 7.9 10*3/uL 4.4-11.0 [facility] Blood erythrocytes count (nu mber/volume)Ordered By: Renard Burgos on 05-15-2023 RBC (Bld) [#/Vol] 4.61 10*6/uL 4.6-6.[address] [facility] Blood hemoglobin measurement (mass/volume)Ordered By: Renard Burgos on 05-15-2023 Hemoglobin (Bld) [Mass/Vol] 13.9 g/dL 13.0-16.5 [facility] Blood lymphocytes/100 leukoc ytesOrdered By: Renard Burgos on 05-15-2023 Lymphocytes/100 WBC (Bld) 26.7 % 19-41 [facility] Blood monocytes/100 leukocyt esOrdered By: Renard Burgos on 05-15-2023 Monocytes/100 WBC (Bld) 9.1 % 0-10 [facility] Blood platelet mean volumeOr dered By: Renard Burgos on 05-15-2023 Platelet mean volume (Bld) [Entitic vol] 10.7 fL 6.2-12.0 [facility] Determination of erythrocyte mean corpuscular volume (MCV)Ordered By: Renard Burgos on 05-15-2023 MCV (RBC) [Entitic vol] 90.5 fL 80-94 [facility] Hematocrit Auto (Bld) [Volum e fraction]Ordered By: Renard Burgos on 05-15-2023 Hematocrit (Bld) [Volume fraction] 41.7 % 40-54 [facility] Laboratory - Hematology and Cell countsOrdered By: Renard Burgos on 05-15-2023 Erythrocyte distribution width (RBC) [Entitic vol] 42.4 fL 35.1-43.9 [facility] Erythrocyte distribution width (RBC) [Ratio] 12.9 % 11.6-14.6 [facility] Immature granulocytes/100 WBC (Bld) 0.400 % 0.0-0.9 [facility] Comment on above: IG% - Immature Granu locytes (promyelocytes, myelocytes and metamyelocytes) > 1% indicates that a LEFT SHIFT is Present. MCH (RBC) [Entitic mass] 30.2 pg 27.0-32.0 [facility] Nucleated RBC/100 WBC (Bld) [Ratio] 0 % 0-5 [facility] MCHC Auto (RBC) [Mass/Vol]Or dered By: Renard Burgos on 05-15-2023 MCHC (RBC) [Mass/Vol] 33.3 g/dL 32-36 [facility] Platelets bldOrdered By: Lyubov Burgos on 05-15-2023 Platelets (Bld) [#/Vol] 202 10*3/uL 150-450 [facility] Absolute lymphocyte countOrd ered By: Renard Burgos on 05-08-2023 Lymphocytes Auto (Unsp spec) [#/Vol] 2.06 10*3/uL 0.83-4.51 [facility] Basophil percentageOrdered B y: Renard Burgos on 05-08-2023 Basophils/100 WBC (Bld) 0.4 % 0-1 [facility] Eosinophils/100 WBC (Bld) 0.5 % 0-5 [facility] Neutrophils (Bld) [#/Vol] 5.0 10*3/uL 2.0-7.7 [facility] Neutrophils/100 WBC (Bld) 65.7 % 47-70 [facility] WBC (Bld) [#/Vol] 7.5 10*3/uL 4.4-11.0 [facility] Blood erythrocytes count (nu mber/volume)Ordered By: Renard Burgos on 05-08-2023 RBC (Bld) [#/Vol] 4.62 10*6/uL 4.6-6.[address] [facility] Blood hemoglobin measurement (mass/volume)Ordered By: Renard Burgos on 05-08-2023 Hemoglobin (Bld) [Mass/Vol] 13.6 g/dL 13.0-16.5 [facility] Blood lymphocytes/100 leukoc ytesOrdered By: Renard Burgos on 05-08-2023 Lymphocytes/100 WBC (Bld) 27.4 % 19-41 [facility] Blood monocytes/100 leukocyt esOrdered By: Renard Burgos on 05-08-2023 Monocytes/100 WBC (Bld) 5.6 % 0-10 [facility] Blood platelet mean volumeOr dered By: Renard Burgos on 05-08-2023 Platelet mean volume (Bld) [Entitic vol] 11.0 fL 6.2-12.0 [facility] Determination of erythrocyte mean corpuscular volume (MCV)Ordered By: Renard Burgos on 05-08-2023 MCV (RBC) [Entitic vol] 91.8 fL 80-94 [facility] Hematocrit Auto (Bld) [Volum e fraction]Ordered By: Renard Burgos on 05-08-2023 Hematocrit (Bld) [Volume fraction] 42.4 % 40-54 [facility] Laboratory - Hematology and Cell countsOrdered By: Renard Burgos on 05-08-2023 Erythrocyte distribution width (RBC) [Entitic vol] 43.1 fL 35.1-43.9 [facility] Erythrocyte distribution width (RBC) [Ratio] 13.0 % 11.6-14.6 [facility] Immature granulocytes/100 WBC (Bld) 0.400 % 0.0-0.9 [facility] Comment on above: IG% - Immature Granu locytes (promyelocytes, myelocytes and metamyelocytes) > 1% indicates that a LEFT SHIFT is Present. MCH (RBC) [Entitic mass] 29.4 pg 27.0-32.0 [facility] Nucleated RBC/100 WBC (Bld) [Ratio] 0 % 0-5 [facility] MCHC Auto (RBC) [Mass/Vol]Or dered By: Renard Burgos on 05-08-2023 MCHC (RBC) [Mass/Vol] 32.1 g/dL 32-36 [facility] Platelets bldOrdered By: Lyubov Burgos on 05-08-2023 Platelets (Bld) [#/Vol] 226 10*3/uL 150-450 [facility] Absolute lymphocyte countOrd ered By: Renard Burgos on 04-17-2023 Lymphocytes Auto (Unsp spec) [#/Vol] 0.92 10*3/uL 0.83-4.51 [facility] Basophil percentageOrdered B y: Renard Burgos on 04-17-2023 Basophils/100 WBC (Bld) 0.1 % 0-1 [facility] Eosinophils/100 WBC (Bld) 0.0 % 0-5 [facility] Neutrophils (Bld) [#/Vol] 6.0 10*3/uL 2.0-7.7 [facility] Neutrophils/100 WBC (Bld) 81.4 % 47-70 [facility] WBC (Bld) [#/Vol] 7.4 10*3/uL 4.4-11.0 [facility] Blood erythrocytes count (nu mber/volume)Ordered By: Renard Burgos on 04-17-2023 RBC (Bld) [#/Vol] 4.59 10*6/uL 4.6-6.[address] [facility] Blood hemoglobin measurement (mass/volume)Ordered By: Renard Burgos on 04-17-2023 Hemoglobin (Bld) [Mass/Vol] 13.7 g/dL 13.0-16.5 [facility] Blood lymphocytes/100 leukoc ytesOrdered By: Renard Burgos on 04-17-2023 Lymphocytes/100 WBC (Bld) 12.5 % 19-41 [facility] Blood monocytes/100 leukocyt esOrdered By: Renard Burgos on 04-17-2023 Monocytes/100 WBC (Bld) 5.6 % 0-10 [facility] Blood platelet mean volumeOr dered By: Renard Burgos on 04-17-2023 Platelet mean volume (Bld) [Entitic vol] 10.9 fL 6.2-12.0 [facility] Determination of erythrocyte mean corpuscular volume (MCV)Ordered By: Renard Burgos on 04-17-2023 MCV (RBC) [Entitic vol] 90.8 fL 80-94 [facility] Hematocrit Auto (Bld) [Volum e fraction]Ordered By: Renard Burgos on 04-17-2023 Hematocrit (Bld) [Volume fraction] 41.7 % 40-54 [facility] Laboratory - Hematology and Cell countsOrdered By: Renard Burgos on 04-17-2023 Erythrocyte distribution width (RBC) [Entitic vol] 42.3 fL 35.1-43.9 [facility] Erythrocyte distribution width (RBC) [Ratio] 12.8 % 11.6-14.6 [facility] Immature granulocytes/100 WBC (Bld) 0.400 % 0.0-0.9 [facility] Comment on above: IG% - Immature Granu locytes (promyelocytes, myelocytes and metamyelocytes) > 1% indicates that a LEFT SHIFT is Present. MCH (RBC) [Entitic mass] 29.8 pg 27.0-32.0 [facility] Nucleated RBC/100 WBC (Bld) [Ratio] 0 % 0-5 [facility] MCHC Auto (RBC) [Mass/Vol]Or dered By: Renard Burgos on 04-17-2023 MCHC (RBC) [Mass/Vol] 32.9 g/dL 32-36 [facility] Platelets bldOrdered By: Lyubov Burgos on 04-17-2023 Platelets (Bld) [#/Vol] 194 10*3/uL 150-450 [facility] Basophil percentageOrdered B y: Renard Burgos on 04-14-2023 Bilirubin [Mass/Vol] 0.30 mg/dL 0.20-1.00 [facility] Comment on above: For patients on eltr ombopag therapy, use of Dimension [place] TBIL is not recommended. Protein [Mass/Vol] 6.2 g/dL 6.4-8.2 [facility] Direct bilirubinOrdered By: Renard Burgos on 04-14-2023 Bilirubin.direct [Mass/Vol] 0.11 mg/dL 0.00-0.30 [facility] Laboratory - Chemistry and C hemistry - challengeOrdered By: Renard Burgos on 04-14-2023 ALP [Catalytic activity/Vol] 139 U/L 45-117 [facility] ALT [Catalytic activity/Vol] 23 U/L 16-61 [facility] Globulin (S) [Mass/Vol] 3.2 g/dL 2.2-4.2 [facility] Serum or plasma albumin gordy urement (mass/volume)Ordered By: Renard Burgos on 04-14-2023 Albumin [Mass/Vol] 3.0 g/dL 3.2-5.0 [facility] Thin prep Papanicolaou smear with manual screeningOrdered By: Renard Burgos on 04-14-2023 Thin prep Papanicolaou smear with manual screening 14 U/L 15-37 [facility] Absolute lymphocyte countOrd ered By: Renard Burgos on 04-10-2023 Lymphocytes Auto (Unsp spec) [#/Vol] 2.54 10*3/uL 0.83-4.51 [facility] Basophil percentageOrdered B y: Renard Burgos on 04-10-2023 Basophils/100 WBC (Bld) 0.5 % 0-1 [facility] Eosinophils/100 WBC (Bld) 0.5 % 0-5 [facility] Neutrophils (Bld) [#/Vol] 5.1 10*3/uL 2.0-7.7 [facility] Neutrophils/100 WBC (Bld) 59.0 % 47-70 [facility] WBC (Bld) [#/Vol] 8.7 10*3/uL 4.4-11.0 [facility] Blood erythrocytes count (nu mber/volume)Ordered By: Renard Burgos on 04-10-2023 RBC (Bld) [#/Vol] 4.84 10*6/uL 4.6-6.[address] [facility] Blood hemoglobin measurement (mass/volume)Ordered By: Renard Burgos on 04-10-2023 Hemoglobin (Bld) [Mass/Vol] 14.2 g/dL 13.0-16.5 [facility] Blood lymphocytes/100 leukoc ytesOrdered By: Renard Burgos on 04-10-2023 Lymphocytes/100 WBC (Bld) 29.4 % 19-41 [facility] Blood monocytes/100 leukocyt esOrdered By: Renard Burgos on 04-10-2023 Monocytes/100 WBC (Bld) 10.3 % 0-10 [facility] Blood platelet mean volumeOr dered By: Renard Burgos on 04-10-2023 Platelet mean volume (Bld) [Entitic vol] 11.1 fL 6.2-12.0 [facility] Determination of erythrocyte mean corpuscular volume (MCV)Ordered By: Renard Burgos on 04-10-2023 MCV (RBC) [Entitic vol] 91.5 fL 80-94 [facility] Hematocrit Auto (Bld) [Volum e fraction]Ordered By: Renard Burgos on 04-10-2023 Hematocrit (Bld) [Volume fraction] 44.3 % 40-54 [facility] Laboratory - Hematology and Cell countsOrdered By: Renard Burgos on 04-10-2023 Erythrocyte distribution width (RBC) [Entitic vol] 41.9 fL 35.1-43.9 [facility] Erythrocyte distribution width (RBC) [Ratio] 12.6 % 11.6-14.6 [facility] Immature granulocytes/100 WBC (Bld) 0.300 % 0.0-0.9 [facility] Comment on above: IG% - Immature Granu locytes (promyelocytes, myelocytes and metamyelocytes) > 1% indicates that a LEFT SHIFT is Present. MCH (RBC) [Entitic mass] 29.3 pg 27.0-32.0 [facility] Nucleated RBC/100 WBC (Bld) [Ratio] 0 % 0-5 [facility] MCHC Auto (RBC) [Mass/Vol]Or dered By: Renard Burgos on 04-10-2023 MCHC (RBC) [Mass/Vol] 32.1 g/dL 32-36 [facility] Platelets bldOrdered By: Lyubov Burgos on 04-10-2023 Platelets (Bld) [#/Vol] 216 10*3/uL 150-450 [facility] Absolute lymphocyte countOrd ered By: Renard Burgos on 04-03-2023 Lymphocytes Auto (Unsp spec) [#/Vol] 1.91 10*3/uL 0.83-4.51 [facility] Basophil percentageOrdered B y: Renard Burgos on 04-03-2023 Basophils/100 WBC (Bld) 0.5 % 0-1 [facility] Eosinophils/100 WBC (Bld) 0.5 % 0-5 [facility] Neutrophils (Bld) [#/Vol] 5.0 10*3/uL 2.0-7.7 [facility] Neutrophils/100 WBC (Bld) 66.5 % 47-70 [facility] WBC (Bld) [#/Vol] 7.6 10*3/uL 4.4-11.0 [facility] Blood erythrocytes count (nu mber/volume)Ordered By: Renard Burgos on 04-03-2023 RBC (Bld) [#/Vol] 4.62 10*6/uL 4.6-6.[address] [facility] Blood hemoglobin measurement (mass/volume)Ordered By: Renard Burgos on 04-03-2023 Hemoglobin (Bld) [Mass/Vol] 13.7 g/dL 13.0-16.5 [facility] Blood lymphocytes/100 leukoc ytesOrdered By: Renard Burgos on 04-03-2023 Lymphocytes/100 WBC (Bld) 25.2 % 19-41 [facility] Blood monocytes/100 leukocyt esOrdered By: Renard Burgos on 04-03-2023 Monocytes/100 WBC (Bld) 6.9 % 0-10 [facility] Blood platelet mean volumeOr dered By: Renard Burgos on 04-03-2023 Platelet mean volume (Bld) [Entitic vol] 10.8 fL 6.2-12.0 [facility] Determination of erythrocyte mean corpuscular volume (MCV)Ordered By: Renard Burgos on 04-03-2023 MCV (RBC) [Entitic vol] 91.6 fL 80-94 [facility] Hematocrit Auto (Bld) [Volum e fraction]Ordered By: Renard Burgos on 04-03-2023 Hematocrit (Bld) [Volume fraction] 42.3 % 40-54 [facility] Laboratory - Hematology and Cell countsOrdered By: Renard Burgos on 04-03-2023 Erythrocyte distribution width (RBC) [Entitic vol] 42.6 fL 35.1-43.9 [facility] Erythrocyte distribution width (RBC) [Ratio] 12.8 % 11.6-14.6 [facility] Immature granulocytes/100 WBC (Bld) 0.400 % 0.0-0.9 [facility] Comment on above: IG% - Immature Granu locytes (promyelocytes, myelocytes and metamyelocytes) > 1% indicates that a LEFT SHIFT is Present. MCH (RBC) [Entitic mass] 29.7 pg 27.0-32.0 [facility] Nucleated RBC/100 WBC (Bld) [Ratio] 0 % 0-5 [facility] MCHC Auto (RBC) [Mass/Vol]Or dered By: Renard Burgos on 04-03-2023 MCHC (RBC) [Mass/Vol] 32.4 g/dL 32-36 [facility] Platelets bldOrdered By: Lyubov Burgos on 04-03-2023 Platelets (Bld) [#/Vol] 216 10*3/uL 150-450 [facility] Absolute lymphocyte countOrd ered By: Renard Burgos on 03-27-2023 Lymphocytes Auto (Unsp spec) [#/Vol] 2.06 10*3/uL 0.83-4.51 [facility] Basophil percentageOrdered B y: Renard Burgos on 03-27-2023 Basophils/100 WBC (Bld) 0.4 % 0-1 [facility] Eosinophils/100 WBC (Bld) 0.2 % 0-5 [facility] Neutrophils (Bld) [#/Vol] 6.3 10*3/uL 2.0-7.7 [facility] Neutrophils/100 WBC (Bld) 68.8 % 47-70 [facility] WBC (Bld) [#/Vol] 9.1 10*3/uL 4.4-11.0 [facility] Blood erythrocytes count (nu mber/volume)Ordered By: Renard Burgos on 03-27-2023 RBC (Bld) [#/Vol] 4.51 10*6/uL 4.6-6.[address] [facility] Blood hemoglobin measurement (mass/volume)Ordered By: Renard Burgos on 03-27-2023 Hemoglobin (Bld) [Mass/Vol] 13.2 g/dL 13.0-16.5 [facility] Blood lymphocytes/100 leukoc ytesOrdered By: Renard Burgos on 03-27-2023 Lymphocytes/100 WBC (Bld) 22.6 % 19-41 [facility] Blood monocytes/100 leukocyt esOrdered By: Renard Burgos on 03-27-2023 Monocytes/100 WBC (Bld) 7.3 % 0-10 [facility] Blood platelet mean volumeOr dered By: Renard Burgos on 03-27-2023 Platelet mean volume (Bld) [Entitic vol] 10.8 fL 6.2-12.0 [facility] Determination of erythrocyte mean corpuscular volume (MCV)Ordered By: Renard Burgos on 03-27-2023 MCV (RBC) [Entitic vol] 91.6 fL 80-94 [facility] Hematocrit Auto (Bld) [Volum e fraction]Ordered By: Renard Burgos on 03-27-2023 Hematocrit (Bld) [Volume fraction] 41.3 % 40-54 [facility] Laboratory - Hematology and Cell countsOrdered By: Renard Burgos on 03-27-2023 Erythrocyte distribution width (RBC) [Entitic vol] 42.9 fL 35.1-43.9 [facility] Erythrocyte distribution width (RBC) [Ratio] 12.9 % 11.6-14.6 [facility] Immature granulocytes/100 WBC (Bld) 0.700 % 0.0-0.9 [facility] Comment on above: IG% - Immature Granu locytes (promyelocytes, myelocytes and metamyelocytes) > 1% indicates that a LEFT SHIFT is Present. MCH (RBC) [Entitic mass] 29.3 pg 27.0-32.0 [facility] Nucleated RBC/100 WBC (Bld) [Ratio] 0 % 0-5 [facility] MCHC Auto (RBC) [Mass/Vol]Or dered By: Renard Burgos on 03-27-2023 MCHC (RBC) [Mass/Vol] 32.0 g/dL 32-36 [facility] Platelets bldOrdered By: Lyubov Burgos on 03-27-2023 Platelets (Bld) [#/Vol] 205 10*3/uL 150-450 [facility] Absolute lymphocyte countOrd ered By: Renard Burgos on 03-20-2023 Lymphocytes Auto (Unsp spec) [#/Vol] 1.89 10*3/uL 0.83-4.51 [facility] Basophil percentageOrdered B y: Renard Burgos on 03-20-2023 Basophils/100 WBC (Bld) 0.5 % 0-1 [facility] Chloride [Moles/Vol] 107 mmol/L 98-[facility] Eosin[facility]/100 WBC (Bld) 0.4 % 0-5 [facility] Glucose [Mass/Vol] 124 mg/dL 74-106 [facility] Comment on above: Fasting Glucose resu lt from 100 to 125 mg/dL suggests IMPAIRED HOMEOSTASIS per A.D.A. criteria. Neutrophils (Bld) [#/Vol] 4.8 10*3/uL 2.0-7.7 [facility] Neutrophils/100 WBC (Bld) 64.9 % 47-70 [facility] Potassium [Moles/Vol] 3.6 mmol/L 3.5-5.1 [facility] Sodium [Moles/Vol] 142 mmol/L 136-145 [facility] WBC (Bld) [#/Vol] 7.4 10*3/uL 4.4-11.0 [facility] Blood erythrocytes count (nu mber/volume)Ordered By: Renard Burgos on 03-20-2023 RBC (Bld) [#/Vol] 4.63 10*6/uL 4.6-6.[address] [facility] Blood hemoglobin measurement (mass/volume)Ordered By: Renard Burgos on 03-20-2023 Hemoglobin (Bld) [Mass/Vol] 13.7 g/dL 13.0-16.5 [facility] Blood lymphocytes/100 leukoc ytesOrdered By: Renard Burgos on 03-20-2023 Lymphocytes/100 WBC (Bld) 25.7 % 19-41 [facility] Blood monocytes/100 leukocyt esOrdered By: Renard Burgos on 03-20-2023 Monocytes/100 WBC (Bld) 8.2 % 0-10 [facility] Blood platelet mean volumeOr dered By: Renard Burgos on 03-20-2023 Platelet mean volume (Bld) [Entitic vol] 10.7 fL 6.2-12.0 [facility] Determination of erythrocyte mean corpuscular volume (MCV)Ordered By: Renard Burgos on 03-20-2023 MCV (RBC) [Entitic vol] 90.9 fL 80-94 [facility] Hematocrit Auto (Bld) [Volum e fraction]Ordered By: Renard Burgos on 03-20-2023 Hematocrit (Bld) [Volume fraction] 42.1 % 40-54 [facility] Laboratory - Chemistry and C hemistry - challengeOrdered By: Renard Burgos on 03-20-2023 CO2 [Moles/Vol] 29.0 mmol/L 21.0-32.0 [facility] Urea nitrogen/Creatinine [Mass ratio] 30.7 mg/mg 02-17 [facility] Laboratory - Hematology and Cell countsOrdered By: Renard Burgos on 03-20-2023 Erythrocyte distribution width (RBC) [Entitic vol] 43.0 fL 35.1-43.9 [facility] Erythrocyte distribution width (RBC) [Ratio] 12.9 % 11.6-14.6 [facility] Immature granulocytes/100 WBC (Bld) 0.300 % 0.0-0.9 [facility] Comment on above: IG% - Immature Granu locytes (promyelocytes, myelocytes and metamyelocytes) > 1% indicates that a LEFT SHIFT is Present. MCH (RBC) [Entitic mass] 29.6 pg 27.0-32.0 [facility] Nucleated RBC/100 WBC (Bld) [Ratio] 0 % 0-5 [facility] MCHC Auto (RBC) [Mass/Vol]Or dered By: Renard Burgos on 03-20-2023 MCHC (RBC) [Mass/Vol] 32.5 g/dL 32-36 [facility] No Panel InformationOrdered By: Renard Burgos on 03-20-2023 Estimated GFR (MDRD) Amer 178 mL/min >60 [facility] Comment on above: GFR Calc Estimated GFR (MDRD) Non-Af Amer 147 mL/min >60 [facility] Comment on above: Non- GFR Calc Platelets bldOrdered By: Lyubov Burgos on 03-20-2023 Platelets (Bld) [#/Vol] 208 10*3/uL 150-450 [facility] Serum or plasma calcium gordy urement (mass/volume)Ordered By: Renard Burgos on 03-20-2023 Calcium [Mass/Vol] 8.1 mg/dL 8.5-10.1 [facility] Serum or plasma creatinine m easurement (mass/volume)Ordered By: Renard Burgos on 03-20-2023 Creatinine [Mass/Vol] 0.59 mg/dL 0.70-1.30 [facility] Comment on above: The validity of the calculated GFR & GFRAA in patients over 70 years has not been determined. Clinical correlation is essential. Serum or plasma urea nitroge n measurement (mass/volume)Ordered By: Renard Burgos on 03-20-2023 Urea nitrogen [Mass/Vol] 18 mg/dL 7-18 [facility] Thin prep Papanicolaou smear with manual screeningOrdered By: Renard Burgos on 03-20-2023 Thin prep Papanicolaou smear with manual screening 6 5-15 [facility] Erythrocyte sedimentation ra teOrdered By: Renard Burgos on 03-16-2023 ESR (Bld) [Velocity] 3 mm/h 0-20 [facility] Absolute lymphocyte countOrd ered By: Renard Burgos on 03-13-2023 Lymphocytes Auto (Unsp spec) [#/Vol] 2.36 10*3/uL 0.83-4.51 [facility] Basophil percentageOrdered B y: Renard Burgos on 03-13-2023 Basophils/100 WBC (Bld) 0.5 % 0-1 [facility] Eosinophils/100 WBC (Bld) 0.5 % 0-5 [facility] Neutrophils (Bld) [#/Vol] 5.2 10*3/uL 2.0-7.7 [facility] Neutrophils/100 WBC (Bld) 61.3 % 47-70 [facility] WBC (Bld) [#/Vol] 8.5 10*3/uL 4.4-11.0 [facility] Blood erythrocytes count (nu mber/volume)Ordered By: Renard Burgos on 03-13-2023 RBC (Bld) [#/Vol] 4.55 10*6/uL 4.6-6.[address] [facility] Blood hemoglobin measurement (mass/volume)Ordered By: Renard Burgos on 03-13-2023 Hemoglobin (Bld) [Mass/Vol] 13.4 g/dL 13.0-16.5 [facility] Blood lymphocytes/100 leukoc ytesOrdered By: Renard Burgos on 03-13-2023 Lymphocytes/100 WBC (Bld) 27.7 % 19-41 [facility] Blood monocytes/100 leukocyt esOrdered By: Renard Burgos on 03-13-2023 Monocytes/100 WBC (Bld) 9.5 % 0-10 [facility] Blood platelet mean volumeOr dered By: Renard Burgos on 03-13-2023 Platelet mean volume (Bld) [Entitic vol] 10.6 fL 6.2-12.0 [facility] Determination of erythrocyte mean corpuscular volume (MCV)Ordered By: Renard Burgos on 03-13-2023 MCV (RBC) [Entitic vol] 93.4 fL 80-94 [facility] Hematocrit Auto (Bld) [Volum e fraction]Ordered By: Renard Burgos on 03-13-2023 Hematocrit (Bld) [Volume fraction] 42.5 % 40-54 [facility] Laboratory - Hematology and Cell countsOrdered By: Renard Burgos on 03-13-2023 Erythrocyte distribution width (RBC) [Entitic vol] 44.1 fL 35.1-43.9 [facility] Erythrocyte distribution width (RBC) [Ratio] 13.0 % 11.6-14.6 [facility] Immature granulocytes/100 WBC (Bld) 0.500 % 0.0-0.9 [facility] Comment on above: IG% - Immature Granu locytes (promyelocytes, myelocytes and metamyelocytes) > 1% indicates that a LEFT SHIFT is Present. MCH (RBC) [Entitic mass] 29.5 pg 27.0-32.0 [facility] Nucleated RBC/100 WBC (Bld) [Ratio] 0 % 0-5 [facility] MCHC Auto (RBC) [Mass/Vol]Or dered By: Renard Burgos on 03-13-2023 MCHC (RBC) [Mass/Vol] 31.5 g/dL 32-36 [facility] Platelets bldOrdered By: Lyubov Burgos on 03-13-2023 Platelets (Bld) [#/Vol] 200 10*3/uL 150-450 [facility] Absolute lymphocyte countOrd ered By: Renard Burgos on 03-06-2023 Lymphocytes Auto (Unsp spec) [#/Vol] 1.80 10*3/uL 0.83-4.51 [facility] Basophil percentageOrdered B y: Renard Burgos on 03-06-2023 Basophils/100 WBC (Bld) 0.5 % 0-1 [facility] Bilirubin [Mass/Vol] 0.40 mg/dL 0.20-1.00 [facility] Comment on above: For patients on eltr ombopag therapy, use of Dimension [place] TBIL is not recommended. Chloride [Moles/Vol] 107 mmol/L 98-107 [facility] Cholesterol [Mass/Vol] 118 mg/dL <200 [facility] Comment on above: <200 mg/dL Desirable 200-240 mg/dL Borderline >240 mg/dL High Risk Eosinophils/100 WBC (Bld) 0.5 % 0-5 [facility] Glucose [Mass/Vol] 107 mg/dL 74-106 [facility] Comment on above: Fasting Glucose resu lt from 100 to 125 mg/dL suggests IMPAIRED HOMEOSTASIS per A.D.A. criteria. Neutrophils (Bld) [#/Vol] 5.5 10*3/uL 2.0-7.7 [facility] Neutrophils/100 WBC (Bld) 68.0 % 47-70 [facility] Potassium [Moles/Vol] 3.8 mmol/L 3.5-5.1 [facility] Protein [Mass/Vol] 6.3 g/dL 6.4-8.2 [facility] Sodium [Moles/Vol] 141 mmol/L 136-145 [facility] Triglyceride [Mass/Vol] 185 mg/dL <199 [facility] Comment on above: The drugs N-Acetylcy steine and Metamizole may falsely depress this assay.Serum Triglycerides Reference Interval Normal <150 mg/dL Borderline high 150 - 199 mg/dL High 200 - 499 mg/dL Very High > or = 500 mg/dL WBC (Bld) [#/Vol] 8.1 10*3/uL 4.4-11.0 [facility] Blood erythrocytes count (nu mber/volume)Ordered By: Renard Burgos on 03-06-2023 RBC (Bld) [#/Vol] 4.69 10*6/uL 4.6-6.[address] [facility] Blood hemoglobin measurement (mass/volume)Ordered By: Renard Burgos on 03-06-2023 Hemoglobin (Bld) [Mass/Vol] 14.0 g/dL 13.0-16.5 [facility] Blood lymphocytes/100 leukoc ytesOrdered By: Renard Burgos on 03-06-2023 Lymphocytes/100 WBC (Bld) 22.3 % 19-41 [facility] Blood monocytes/100 leukocyt esOrdered By: Renard Burgos on 03-06-2023 Monocytes/100 WBC (Bld) 8.2 % 0-10 [facility] Blood platelet mean volumeOr dered By: Renard Burgos on 03-06-2023 Platelet mean volume (Bld) [Entitic vol] 10.9 fL 6.2-12.0 [facility] Determination of erythrocyte mean corpuscular volume (MCV)Ordered By: Renard Burgos on 03-06-2023 MCV (RBC) [Entitic vol] 91.9 fL 80-94 [facility] Hematocrit Auto (Bld) [Volum e fraction]Ordered By: Renard Burgos on 03-06-2023 Hematocrit (Bld) [Volume fraction] 43.1 % 40-54 [facility] Laboratory - Chemistry and C hemistry - challengeOrdered By: Renard Burgos on 03-06-2023 ALP [Catalytic activity/Vol] 120 U/L 45-117 [facility] ALT [Catalytic activity/Vol] 20 U/L 16-61 [facility] CO2 [Moles/Vol] 30.0 mmol/L 21.0-32.0 [facility] Globulin (S) [Mass/Vol] 3.3 g/dL 2.2-4.2 [facility] Urea nitrogen/Creatinine [Mass ratio] 27.1 mg/mg 10-20 [facility] Laboratory - Hematology and Cell countsOrdered By: Renard Burgos on 03-06-2023 Erythrocyte distribution width (RBC) [Entitic vol] 42.5 fL 35.1-43.9 [facility] Erythrocyte distribution width (RBC) [Ratio] 12.9 % 11.6-14.6 [facility] Immature granulocytes/100 WBC (Bld) 0.500 % 0.0-0.9 [facility] Comment on above: IG% - Immature Granu locytes (promyelocytes, myelocytes and metamyelocytes) > 1% indicates that a LEFT SHIFT is Present. MCH (RBC) [Entitic mass] 29.9 pg 27.0-32.0 [facility] Nucleated RBC/100 WBC (Bld) [Ratio] 0 % 0-5 [facility] MCHC Auto (RBC) [Mass/Vol]Or dered By: Renard Burgos on 03-06-2023 MCHC (RBC) [Mass/Vol] 32.5 g/dL 32-36 [facility] No Panel InformationOrdered By: Renard Burgos on 03-06-2023 Estimated GFR (MDRD) Amer 165 mL/min >60 [facility] Comment on above: GFR Calc Estimated GFR (MDRD) Non-Af Amer 136 mL/min >60 [facility] Comment on above: Non- GFR Calc Platelets bldOrdered By: Lyubov Burgos on 03-06-2023 Platelets (Bld) [#/Vol] 232 10*3/uL 150-450 [facility] Serum or plasma albumin gordy urement (mass/volume)Ordered By: Renard Burgos on 03-06-2023 Albumin [Mass/Vol] 3.0 g/dL 3.2-5.0 [facility] Serum or plasma albumin/glob ulin mass ratioOrdered By: Renard Burgos on 03-06-2023 Albumin/Globulin [Mass ratio] 0.9 {ratio} 0.9-2.4 [facility] Serum or plasma calcium gordy urement (mass/volume)Ordered By: Renard Burgos on 03-06-2023 Calcium [Mass/Vol] 8.2 mg/dL 8.5-10.1 [facility] Serum or plasma cholesterol in HDL measurement (mass/volume)Ordered By: Renard Burgos on 03-06-2023 Cholesterol in HDL [Mass/Vol] 25 mg/dL >40 [facility] Comment on above: The drugs N-Acetylcy steine and Metamizole may falsely depress this assay. Reference Range HDL <40 mg/dL Low HDL Cholesterol HDL >or= 60 mg/dL High HDL Cholesterol Serum or plasma cholesterol in VLDL measurement (mass/volume)Ordered By: Renard Burgos on 03-06-2023 Cholesterol in VLDL [Mass/Vol] 37 mg/dL 5-40 [facility] Serum or plasma creatinine m easurement (mass/volume)Ordered By: Renard Burgos on 03-06-2023 Creatinine [Mass/Vol] 0.63 mg/dL 0.70-1.30 [facility] Comment on above: The validity of the calculated GFR & GFRAA in patients over 70 years has not been determined. Clinical correlation is essential. Serum or plasma low density lipoprotein (LDL) cholesterol measurement (mass/volume)Ordered By: Renard Burgos on 03-06-2023 Cholesterol in LDL [Mass/Vol] 56 mg/dL 0-130 [facility] Serum or plasma urea nitroge n measurement (mass/volume)Ordered By: Renard Burgos on 03-06-2023 Urea nitrogen [Mass/Vol] 17 mg/dL 7-18 [facility] Thin prep Papanicolaou smear with manual screeningOrdered By: Renard Burgos on 03-06-2023 Thin prep Papanicolaou smear with manual screening 10 U/L 15-37 [facility] Thin prep Papanicolaou smear with manual screening 4 5-15 [facility] Absolute lymphocyte countOrd ered By: Renard Burgos on 02-27-2023 Lymphocytes Auto (Unsp spec) [#/Vol] 2.13 10*3/uL 0.83-4.51 [facility] Basophil percentageOrdered B y: Renard Burgos on 02-27-2023 Basophils/100 WBC (Bld) 0.6 % 0-1 [facility] Eosinophils/100 WBC (Bld) 0.6 % 0-5 [facility] Neutrophils (Bld) [#/Vol] 5.1 10*3/uL 2.0-7.7 [facility] Neutrophils/100 WBC (Bld) 63.3 % 47-70 [facility] WBC (Bld) [#/Vol] 8.1 10*3/uL 4.4-11.0 [facility] Blood erythrocytes count (nu mber/volume)Ordered By: Renard Burgos on 02-27-2023 RBC (Bld) [#/Vol] 4.54 10*6/uL 4.6-6.[address] [facility] Blood hemoglobin measurement (mass/volume)Ordered By: Renard Burgos on 02-27-2023 Hemoglobin (Bld) [Mass/Vol] 13.7 g/dL 13.0-16.5 [facility] Blood lymphocytes/100 leukoc ytesOrdered By: Renard Burgos on 02-27-2023 Lymphocytes/100 WBC (Bld) 26.4 % 19-41 [facility] Blood monocytes/100 leukocyt esOrdered By: Renard Burgos on 02-27-2023 Monocytes/100 WBC (Bld) 8.7 % 0-10 [facility] Blood platelet mean volumeOr dered By: Renard Burgos on 02-27-2023 Platelet mean volume (Bld) [Entitic vol] 10.8 fL 6.2-12.0 [facility] Determination of erythrocyte mean corpuscular volume (MCV)Ordered By: Renard Burgos on 02-27-2023 MCV (RBC) [Entitic vol] 89.9 fL 80-94 [facility] Hematocrit Auto (Bld) [Volum e fraction]Ordered By: Renard Burgos on 02-27-2023 Hematocrit (Bld) [Volume fraction] 40.8 % 40-54 [facility] Laboratory - Hematology and Cell countsOrdered By: Renard Burgos on 02-27-2023 Erythrocyte distribution width (RBC) [Entitic vol] 41.0 fL 35.1-43.9 [facility] Erythrocyte distribution width (RBC) [Ratio] 12.5 % 11.6-14.6 [facility] Immature granulocytes/100 WBC (Bld) 0.400 % 0.0-0.9 [facility] Comment on above: IG% - Immature Granu locytes (promyelocytes, myelocytes and metamyelocytes) > 1% indicates that a LEFT SHIFT is Present. MCH (RBC) [Entitic mass] 30.2 pg 27.0-32.0 [facility] Nucleated RBC/100 WBC (Bld) [Ratio] 0 % 0-5 [facility] MCHC Auto (RBC) [Mass/Vol]Or dered By: Renard Burgos on 02-27-2023 MCHC (RBC) [Mass/Vol] 33.6 g/dL 32-36 [facility] Platelets bldOrdered By: Lyubov Burgos on 02-27-2023 Platelets (Bld) [#/Vol] 182 10*3/uL 150-450 [facility] Absolute lymphocyte countOrd ered By: Renard Burgos on 02-20-2023 Lymphocytes Auto (Unsp spec) [#/Vol] 2.23 10*3/uL 0.83-4.51 [facility] Basophil percentageOrdered B y: Renard Burgos on 02-20-2023 Basophils/100 WBC (Bld) 0.3 % 0-1 [facility] Eosinophils/100 WBC (Bld) 0.7 % 0-5 [facility] Neutrophils (Bld) [#/Vol] 5.9 10*3/uL 2.0-7.7 [facility] Neutrophils/100 WBC (Bld) 65.7 % 47-70 [facility] WBC (Bld) [#/Vol] 9.0 10*3/uL 4.4-11.0 [facility] Blood erythrocytes count (nu mber/volume)Ordered By: Renard Burgos on 02-20-2023 RBC (Bld) [#/Vol] 4.46 10*6/uL 4.6-6.[address] [facility] Blood hemoglobin measurement (mass/volume)Ordered By: Renard Burgos on 02-20-2023 Hemoglobin (Bld) [Mass/Vol] 13.3 g/dL 13.0-16.5 [facility] Blood lymphocytes/100 leukoc ytesOrdered By: Renard Burgos on 02-20-2023 Lymphocytes/100 WBC (Bld) 24.7 % 19-41 [facility] Blood monocytes/100 leukocyt esOrdered By: Renard Burgos on 02-20-2023 Monocytes/100 WBC (Bld) 8.0 % 0-10 [facility] Blood platelet mean volumeOr dered By: Renard Burgos on 02-20-2023 Platelet mean volume (Bld) [Entitic vol] 10.7 fL 6.2-12.0 [facility] Determination of erythrocyte mean corpuscular volume (MCV)Ordered By: Renard Burgos on 02-20-2023 MCV (RBC) [Entitic vol] 90.6 fL 80-94 [facility] Hematocrit Auto (Bld) [Volum e fraction]Ordered By: Renard Burgos on 02-20-2023 Hematocrit (Bld) [Volume fraction] 40.4 % 40-54 [facility] Laboratory - Hematology and Cell countsOrdered By: Renard Burgos on 02-20-2023 Erythrocyte distribution width (RBC) [Entitic vol] 41.9 fL 35.1-43.9 [facility] Erythrocyte distribution width (RBC) [Ratio] 12.8 % 11.6-14.6 [facility] Immature granulocytes/100 WBC (Bld) 0.600 % 0.0-0.9 [facility] Comment on above: IG% - Immature Granu locytes (promyelocytes, myelocytes and metamyelocytes) > 1% indicates that a LEFT SHIFT is Present. MCH (RBC) [Entitic mass] 29.8 pg 27.0-32.0 [facility] Nucleated RBC/100 WBC (Bld) [Ratio] 0 % 0-5 [facility] MCHC Auto (RBC) [Mass/Vol]Or dered By: Renard Burgso on 02-20-2023 MCHC (RBC) [Mass/Vol] 32.9 g/dL 32-36 [facility] Platelets bldOrdered By: Lyubov Burgos on 02-20-2023 Platelets (Bld) [#/Vol] 220 10*3/uL 150-450 [facility] Absolute lymphocyte countOrd ered By: Renard Burgos on 02-13-2023 Lymphocytes Auto (Unsp spec) [#/Vol] 2.01 10*3/uL 0.83-4.51 [facility] Basophil percentageOrdered B y: Renard Burgos on 02-13-2023 Basophils/100 WBC (Bld) 0.7 % 0-1 [facility] Eosinophils/100 WBC (Bld) 0.5 % 0-5 [facility] Neutrophils (Bld) [#/Vol] 4.7 10*3/uL 2.0-7.7 [facility] Neutrophils/100 WBC (Bld) 63.3 % 47-70 [facility] WBC (Bld) [#/Vol] 7.4 10*3/uL 4.4-11.0 [facility] Blood erythrocytes count (nu mber/volume)Ordered By: Renard Burgos on 02-13-2023 RBC (Bld) [#/Vol] 4.46 10*6/uL 4.6-6.[address] [facility] Blood hemoglobin measurement (mass/volume)Ordered By: Renard Burgos on 02-13-2023 Hemoglobin (Bld) [Mass/Vol] 13.6 g/dL 13.0-16.5 [facility] Blood lymphocytes/100 leukoc ytesOrdered By: Renard Burgos on 02-13-2023 Lymphocytes/100 WBC (Bld) 27.0 % 19-41 [facility] Blood monocytes/100 leukocyt esOrdered By: Renard Burgos on 02-13-2023 Monocytes/100 WBC (Bld) 8.1 % 0-10 [facility] Blood platelet mean volumeOr dered By: Renard Burgos on 02-13-2023 Platelet mean volume (Bld) [Entitic vol] 10.7 fL 6.2-12.0 [facility] Determination of erythrocyte mean corpuscular volume (MCV)Ordered By: Renard Burgos on 02-13-2023 MCV (RBC) [Entitic vol] 92.6 fL 80-94 [facility] Hematocrit Auto (Bld) [Volum e fraction]Ordered By: Renard Burgos on 02-13-2023 Hematocrit (Bld) [Volume fraction] 41.3 % 40-54 [facility] Laboratory - Hematology and Cell countsOrdered By: Renard Burgos on 02-13-2023 Erythrocyte distribution width (RBC) [Entitic vol] 42.7 fL 35.1-43.9 [facility] Erythrocyte distribution width (RBC) [Ratio] 12.6 % 11.6-14.6 [facility] Immature granulocytes/100 WBC (Bld) 0.400 % 0.0-0.9 [facility] Comment on above: IG% - Immature Granu locytes (promyelocytes, myelocytes and metamyelocytes) > 1% indicates that a LEFT SHIFT is Present. MCH (RBC) [Entitic mass] 30.5 pg 27.0-32.0 [facility] Nucleated RBC/100 WBC (Bld) [Ratio] 0 % 0-5 [facility] MCHC Auto (RBC) [Mass/Vol]Or dered By: Renard Burgos on 02-13-2023 MCHC (RBC) [Mass/Vol] 32.9 g/dL 32-36 [facility] Platelets bldOrdered By: Pet lizy Burgos on 02-13-2023 Platelets (Bld) [#/Vol] 187 10*3/uL 150-450 [facility] Absolute lymphocyte countOrd ered By: Renard Burgos on 02-06-2023 Lymphocytes Auto (Unsp spec) [#/Vol] 2.28 10*3/uL 0.83-4.51 [facility] Basophil percentageOrdered B y: Renard Burgos on 02-06-2023 Basophils/100 WBC (Bld) 0.5 % 0-1 [facility] Eosinophils/100 WBC (Bld) 0.7 % 0-5 [facility] Neutrophils (Bld) [#/Vol] 5.5 10*3/uL 2.0-7.7 [facility] Neutrophils/100 WBC (Bld) 63.7 % 47-70 [facility] WBC (Bld) [#/Vol] 8.6 10*3/uL 4.4-11.0 [facility] Blood erythrocytes count (nu mber/volume)Ordered By: Renard Burgos on 02-06-2023 RBC (Bld) [#/Vol] 4.71 10*6/uL 4.6-6.[address] [facility] Blood hemoglobin measurement (mass/volume)Ordered By: Renard Burgos on 02-06-2023 Hemoglobin (Bld) [Mass/Vol] 14.1 g/dL 13.0-16.5 [facility] Blood lymphocytes/100 leukoc ytesOrdered By: Renard Burgos on 02-06-2023 Lymphocytes/100 WBC (Bld) 26.4 % 19-41 [facility] Blood monocytes/100 leukocyt esOrdered By: Renard Burgos on 02-06-2023 Monocytes/100 WBC (Bld) 8.2 % 0-10 [facility] Blood platelet mean volumeOr dered By: Renard Burgos on 02-06-2023 Platelet mean volume (Bld) [Entitic vol] 11.0 fL 6.2-12.0 [facility] Determination of erythrocyte mean corpuscular volume (MCV)Ordered By: Renard Burgos on 02-06-2023 MCV (RBC) [Entitic vol] 94.5 fL 80-94 [facility] Hematocrit Auto (Bld) [Volum e fraction]Ordered By: Renard Burgos on 02-06-2023 Hematocrit (Bld) [Volume fraction] 44.5 % 40-54 [facility] Laboratory - Hematology and Cell countsOrdered By: Renard Burgos on 02-06-2023 Erythrocyte distribution width (RBC) [Entitic vol] 43.5 fL 35.1-43.9 [facility] Erythrocyte distribution width (RBC) [Ratio] 12.7 % 11.6-14.6 [facility] Immature granulocytes/100 WBC (Bld) 0.500 % 0.0-0.9 [facility] Comment on above: IG% - Immature Granu locytes (promyelocytes, myelocytes and metamyelocytes) > 1% indicates that a LEFT SHIFT is Present. MCH (RBC) [Entitic mass] 29.9 pg 27.0-32.0 [facility] Nucleated RBC/100 WBC (Bld) [Ratio] 0 % 0-5 [facility] MCHC Auto (RBC) [Mass/Vol]Or dered By: Renard Burgos on 02-06-2023 MCHC (RBC) [Mass/Vol] 31.7 g/dL 32-36 [facility] Platelets bldOrdered By: Lyubov Burgos on 02-06-2023 Platelets (Bld) [#/Vol] 196 10*3/uL 150-450 [facility] Absolute lymphocyte countOrd ered By: Renard Burgos on 01-30-2023 Lymphocytes Auto (Unsp spec) [#/Vol] 1.91 10*3/uL 0.83-4.51 [facility] Basophil percentageOrdered B y: Renard Burgos on 01-30-2023 Basophils/100 WBC (Bld) 0.5 % 0-1 [facility] Eosinophils/100 WBC (Bld) 0.5 % 0-5 [facility] Neutrophils (Bld) [#/Vol] 6.0 10*3/uL 2.0-7.7 [facility] Neutrophils/100 WBC (Bld) 69.4 % 47-70 [facility] WBC (Bld) [#/Vol] 8.7 10*3/uL 4.4-11.0 [facility] Basophil percentage 0 SEEN /hpf 0-5 [facility] Bilirubin Test strip Ql (U)O rdered By: Renard Burgos on 01-30-2023 Bilirubin Ql (U) Negative Negative [facility] Blood erythrocytes count (nu mber/volume)Ordered By: Renard Burgos on 01-30-2023 RBC (Bld) [#/Vol] 4.50 10*6/uL 4.6-6.[address] [facility] Blood hemoglobin measurement (mass/volume)Ordered By: Renard Burgos on 01-30-2023 Hemoglobin (Bld) [Mass/Vol] 13.5 g/dL 13.0-16.5 [facility] Blood lymphocytes/100 leukoc ytesOrdered By: Renard Burgos on 01-30-2023 Lymphocytes/100 WBC (Bld) 22.1 % 19-41 [facility] Blood monocytes/100 leukocyt esOrdered By: Renard Burgos on 01-30-2023 Monocytes/100 WBC (Bld) 7.2 % 0-10 [facility] Blood platelet mean volumeOr dered By: Renard Burgos on 01-30-2023 Platelet mean volume (Bld) [Entitic vol] 11.1 fL 6.2-12.0 [facility] Culture, urineOrdered By: Garrick Bhatt on 01-30-2023 Bacteria identified Cx Nom (U) Positive [facility] Determination of erythrocyte mean corpuscular volume (MCV)Ordered By: Renard Burgos on 01-30-2023 MCV (RBC) [Entitic vol] 91.3 fL 80-94 [facility] Hematocrit Auto (Bld) [Volum e fraction]Ordered By: Renard Burgos on 01-30-2023 Hematocrit (Bld) [Volume fraction] 41.1 % 40-54 [facility] Ketones Test strip Ql (U)Ord ered By: Renard Burgos on 01-30-2023 Ketones Ql (U) Negative Negative [facility] Laboratory - Hematology and Cell countsOrdered By: Renard Burgos on 01-30-2023 Erythrocyte distribution width (RBC) [Entitic vol] 41.4 fL 35.1-43.9 [facility] Erythrocyte distribution width (RBC) [Ratio] 12.6 % 11.6-14.6 [facility] Immature granulocytes/100 WBC (Bld) 0.300 % 0.0-0.9 [facility] Comment on above: IG% - Immature Granu locytes (promyelocytes, myelocytes and metamyelocytes) > 1% indicates that a LEFT SHIFT is Present. MCH (RBC) [Entitic mass] 30.0 pg 27.0-32.0 [facility] Nucleated RBC/100 WBC (Bld) [Ratio] 0 % 0-5 [facility] MCHC Auto (RBC) [Mass/Vol]Or dered By: Renard Burgos on 01-30-2023 MCHC (RBC) [Mass/Vol] 32.8 g/dL 32-36 [facility] Mucus LM Ql (Urine sed)Order ed By: Renard Burgos on 01-30-2023 Mucus Ql (Urine sed) 0 SEEN /hpf [facility] Nitrite Test strip Ql (U)Ord ered By: Renard Burgos on 01-30-2023 Nitrite Ql (U) Negative Negative [facility] No Panel InformationOrdered By: Renard Burgso on 01-30-2023 Prostate Specific Antigen Screen 4.18 ng/mL 0.00-4.00 [facility] Comment on above: This test was perfor med using the TPSA assay method for the[employer] chemistry system. Values obtained with differentassay methods cannot be used interchangably.When changing PSA assays in the course of monitoring apatient, additional sequential testing should be carriedout to confirm baseline values. Platelets bldOrdered By: Lyubov Burgos on 01-30-2023 Platelets (Bld) [#/Vol] 205 10*3/uL 150-450 [facility] Protein Test strip Ql (U)Ord ered By: Renard Burgos on 01-30-2023 Protein Ql (U) Negative Negative [facility] Squamous epithelial cells de tection in urine sediment by light microscopyOrdered By: Renard Burgos on 01-30-2023 Epithelial cells.squamous LM Ql (Urine sed) 0-5 SEEN /hpf 0-5 [facility] Urine blood detectionOrdered By: Renard Burgos on 01-30-2023 RBC Ql (U) Negative Negative [facility] RBC Ql (U) 0 SEEN /hpf 0-5 [facility] Urine clarityOrdered By: Lyubov Burgos on 01-30-2023 Clarity (U) Clear Clear [facility] Urine color determinationOrd ered By: Renard Burgos on 01-30-2023 Color (U) Yellow Yellow [facility] Urine glucose detectionOrder ed By: Renard Burgos on 01-30-2023 Glucose Ql (U) Normal mg/dl Normal [facility] Urine leukocyte esterase det ection by dipstickOrdered By: Renard Burgos on 01-30-2023 Leukocyte esterase Test strip Ql (U) Negative Negative [facility] Urine pHOrdered By: Renard ocampo on 01-30-2023 pH (U) 8.0 [pH] 5.0 - 8.0 [facility] Urine sediment bacteria coun t by microscopy (number/high power field)Ordered By: Renard Burgos on 01-30-2023 Bacteria LM.HPF (Urine sed) [#/Area] 0 /[HPF] None Seen [facility] Urine specific gravity measu rementOrdered By: Renard Burgos on 01-30-2023 Specific gravity (U) [Rel density] 1.010 1.002-1.030 [facility] Urobilinogen Auto test strip Ql (U)Ordered By: Renard Burgos on 01-30-2023 Urobilinogen Ql (U) Normal mg/dl Normal [facility] Absolute lymphocyte countOrd ered By: Renard Burgos on 01-23-2023 Lymphocytes Auto (Unsp spec) [#/Vol] 2.32 10*3/uL 0.83-4.51 [facility] Basophil percentageOrdered B y: Renard Burgos on 01-23-2023 Basophils/100 WBC (Bld) 0.6 % 0-1 [facility] Eosinophils/100 WBC (Bld) 0.4 % 0-5 [facility] Neutrophils (Bld) [#/Vol] 5.3 10*3/uL 2.0-7.7 [facility] Neutrophils/100 WBC (Bld) 62.7 % 47-70 [facility] WBC (Bld) [#/Vol] 8.4 10*3/uL 4.4-11.0 [facility] Blood erythrocytes count (nu mber/volume)Ordered By: Renard Burgos on 01-23-2023 RBC (Bld) [#/Vol] 4.49 10*6/uL 4.6-6.[address] [facility] Blood hemoglobin measurement (mass/volume)Ordered By: Renard Burgos on 01-23-2023 Hemoglobin (Bld) [Mass/Vol] 13.6 g/dL 13.0-16.5 [facility] Blood lymphocytes/100 leukoc ytesOrdered By: Renard Burgos on 01-23-2023 Lymphocytes/100 WBC (Bld) 27.5 % 19-41 [facility] Blood monocytes/100 leukocyt esOrdered By: Renard Burgos on 01-23-2023 Monocytes/100 WBC (Bld) 8.2 % 0-10 [facility] Blood platelet mean volumeOr dered By: Renard Burgos on 01-23-2023 Platelet mean volume (Bld) [Entitic vol] 10.9 fL 6.2-12.0 [facility] Determination of erythrocyte mean corpuscular volume (MCV)Ordered By: Renard Burgos on 01-23-2023 MCV (RBC) [Entitic vol] 93.1 fL 80-94 [facility] Hematocrit Auto (Bld) [Volum e fraction]Ordered By: Renard Burgos on 01-23-2023 Hematocrit (Bld) [Volume fraction] 41.8 % 40-54 [facility] Laboratory - Hematology and Cell countsOrdered By: Renard Burgos on 01-23-2023 Erythrocyte distribution width (RBC) [Entitic vol] 42.7 fL 35.1-43.9 [facility] Erythrocyte distribution width (RBC) [Ratio] 12.6 % 11.6-14.6 [facility] Immature granulocytes/100 WBC (Bld) 0.600 % 0.0-0.9 [facility] Comment on above: IG% - Immature Granu locytes (promyelocytes, myelocytes and metamyelocytes) > 1% indicates that a LEFT SHIFT is Present. MCH (RBC) [Entitic mass] 30.3 pg 27.0-32.0 [facility] Nucleated RBC/100 WBC (Bld) [Ratio] 0 % 0-5 [facility] MCHC Auto (RBC) [Mass/Vol]Or dered By: Rneard Burgos on 01-23-2023 MCHC (RBC) [Mass/Vol] 32.5 g/dL 32-36 [facility] Platelets bldOrdered By: Lyubov lizy Loretta on 01-23-2023 Platelets (Bld) [#/Vol] 220 10*3/uL 150-450 [facility] Absolute lymphocyte countOrd ered By: Renard Burgos on 01-16-2023 Lymphocytes Auto (Unsp spec) [#/Vol] 1.80 10*3/uL 0.83-4.51 [facility] Basophil percentageOrdered B y: Renard Burgos on 01-16-2023 Basophils/100 WBC (Bld) 0.4 % 0-1 [facility] Eosinophils/100 WBC (Bld) 0.4 % 0-5 [facility] Neutrophils (Bld) [#/Vol] 7.2 10*3/uL 2.0-7.7 [facility] Neutrophils/100 WBC (Bld) 73.5 % 47-70 [facility] WBC (Bld) [#/Vol] 9.8 10*3/uL 4.4-11.0 [facility] Blood erythrocytes count (nu mber/volume)Ordered By: Renard Burgos on 01-16-2023 RBC (Bld) [#/Vol] 4.77 10*6/uL 4.6-6.[address] [facility] Blood hemoglobin measurement (mass/volume)Ordered By: Renard Burgos on 01-16-2023 Hemoglobin (Bld) [Mass/Vol] 14.1 g/dL 13.0-16.5 [facility] Blood lymphocytes/100 leukoc ytesOrdered By: Renard Burgos on 01-16-2023 Lymphocytes/100 WBC (Bld) 18.4 % 19-41 [facility] Blood monocytes/100 leukocyt esOrdered By: Rneard Burgos on 01-16-2023 Monocytes/100 WBC (Bld) 6.9 % 0-10 [facility] Blood platelet mean volumeOr dered By: Renard Burgos on 01-16-2023 Platelet mean volume (Bld) [Entitic vol] 10.6 fL 6.2-12.0 [facility] Determination of erythrocyte mean corpuscular volume (MCV)Ordered By: Renard Burgos on 01-16-2023 MCV (RBC) [Entitic vol] 92.5 fL 80-94 [facility] Hematocrit Auto (Bld) [Volum e fraction]Ordered By: Renard Burgos on 01-16-2023 Hematocrit (Bld) [Volume fraction] 44.1 % 40-54 [facility] Laboratory - Hematology and Cell countsOrdered By: Renard Burgos on 01-16-2023 Erythrocyte distribution width (RBC) [Entitic vol] 41.8 fL 35.1-43.9 [facility] Erythrocyte distribution width (RBC) [Ratio] 12.4 % 11.6-14.6 [facility] Immature granulocytes/100 WBC (Bld) 0.400 % 0.0-0.9 [facility] Comment on above: IG% - Immature Granu locytes (promyelocytes, myelocytes and metamyelocytes) > 1% indicates that a LEFT SHIFT is Present. MCH (RBC) [Entitic mass] 29.6 pg 27.0-32.0 [facility] Nucleated RBC/100 WBC (Bld) [Ratio] 0 % 0-5 [facility] MCHC Auto (RBC) [Mass/Vol]Or dered By: Renard Burgos on 01-16-2023 MCHC (RBC) [Mass/Vol] 32.0 g/dL 32-36 [facility] Platelets bldOrdered By: Lyubov Burgos on 01-16-2023 Platelets (Bld) [#/Vol] 221 10*3/uL 150-450 [facility] Absolute lymphocyte countOrd ered By: Renard Burgos on 01-09-2023 Lymphocytes Auto (Unsp spec) [#/Vol] 2.41 10*3/uL 0.83-4.51 [facility] Basophil percentageOrdered B y: Renard Burgos on 01-09-2023 Basophils/100 WBC (Bld) 0.7 % 0-1 [facility] Eosinophils/100 WBC (Bld) 0.8 % 0-5 [facility] Neutrophils (Bld) [#/Vol] 5.4 10*3/uL 2.0-7.7 [facility] Neutrophils/100 WBC (Bld) 60.5 % 47-70 [facility] WBC (Bld) [#/Vol] 8.9 10*3/uL 4.4-11.0 [facility] Blood erythrocytes count (nu mber/volume)Ordered By: Renard Burgos on 01-09-2023 RBC (Bld) [#/Vol] 4.56 10*6/uL 4.6-6.[address] [facility] Blood hemoglobin measurement (mass/volume)Ordered By: Renard Burgos on 01-09-2023 Hemoglobin (Bld) [Mass/Vol] 13.8 g/dL 13.0-16.5 [facility] Blood lymphocytes/100 leukoc ytesOrdered By: Renard Burgos on 01-09-2023 Lymphocytes/100 WBC (Bld) 27.0 % 19-41 [facility] Blood monocytes/100 leukocyt esOrdered By: Renard Burgos on 01-09-2023 Monocytes/100 WBC (Bld) 10.7 % 0-10 [facility] Blood platelet mean volumeOr dered By: Renard Burgos on 01-09-2023 Platelet mean volume (Bld) [Entitic vol] 10.8 fL 6.2-12.0 [facility] Determination of erythrocyte mean corpuscular volume (MCV)Ordered By: Renard Burgos on 01-09-2023 MCV (RBC) [Entitic vol] 92.5 fL 80-94 [facility] Hematocrit Auto (Bld) [Volum e fraction]Ordered By: Renard Burgos on 01-09-2023 Hematocrit (Bld) [Volume fraction] 42.2 % 40-54 [facility] Laboratory - Hematology and Cell countsOrdered By: Renard Burgos on 01-09-2023 Erythrocyte distribution width (RBC) [Entitic vol] 42.7 fL 35.1-43.9 [facility] Erythrocyte distribution width (RBC) [Ratio] 12.5 % 11.6-14.6 [facility] Immature granulocytes/100 WBC (Bld) 0.300 % 0.0-0.9 [facility] Comment on above: IG% - Immature Granu locytes (promyelocytes, myelocytes and metamyelocytes) > 1% indicates that a LEFT SHIFT is Present. MCH (RBC) [Entitic mass] 30.3 pg 27.0-32.0 [facility] Nucleated RBC/100 WBC (Bld) [Ratio] 0 % 0-5 [facility] MCHC Auto (RBC) [Mass/Vol]Or dered By: Renard Burgos on 01-09-2023 MCHC (RBC) [Mass/Vol] 32.7 g/dL 32-36 [facility] Platelets bldOrdered By: Lyubov Burgos on 01-09-2023 Platelets (Bld) [#/Vol] 209 10*3/uL 150-450 [facility] Absolute lymphocyte countOrd ered By: Renard Burgos on 01-03-2023 Lymphocytes Auto (Unsp spec) [#/Vol] 2.18 10*3/uL 0.83-4.51 [facility] Basophil percentageOrdered B y: Renard Burgos on 01-03-2023 Basophils/100 WBC (Bld) 0.6 % 0-1 [facility] Eosinophils/100 WBC (Bld) 0.5 % 0-5 [facility] Neutrophils (Bld) [#/Vol] 5.4 10*3/uL 2.0-7.7 [facility] Neutrophils/100 WBC (Bld) 64.2 % 47-70 [facility] WBC (Bld) [#/Vol] 8.4 10*3/uL 4.4-11.0 [facility] Blood erythrocytes count (nu mber/volume)Ordered By: Renard Burgos on 01-03-2023 RBC (Bld) [#/Vol] 4.59 10*6/uL 4.6-6.[address] [facility] Blood hemoglobin measurement (mass/volume)Ordered By: Renard Burgos on 01-03-2023 Hemoglobin (Bld) [Mass/Vol] 13.9 g/dL 13.0-16.5 [facility] Blood lymphocytes/100 leukoc ytesOrdered By: Renard Burgos on 01-03-2023 Lymphocytes/100 WBC (Bld) 25.9 % 19-41 [facility] Blood monocytes/100 leukocyt esOrdered By: Renard Burgos on 01-03-2023 Monocytes/100 WBC (Bld) 8.3 % 0-10 [facility] Blood platelet mean volumeOr dered By: Renard Burgos on 01-03-2023 Platelet mean volume (Bld) [Entitic vol] 11.0 fL 6.2-12.0 [facility] Determination of erythrocyte mean corpuscular volume (MCV)Ordered By: Renard Burgos on 01-03-2023 MCV (RBC) [Entitic vol] 92.8 fL 80-94 [facility] Hematocrit Auto (Bld) [Volum e fraction]Ordered By: Renard Burgos on 01-03-2023 Hematocrit (Bld) [Volume fraction] 42.6 % 40-54 [facility] Laboratory - Hematology and Cell countsOrdered By: Renard Burgos on 01-03-2023 Erythrocyte distribution width (RBC) [Entitic vol] 42.5 fL 35.1-43.9 [facility] Erythrocyte distribution width (RBC) [Ratio] 12.6 % 11.6-14.6 [facility] Immature granulocytes/100 WBC (Bld) 0.500 % 0.0-0.9 [facility] Comment on above: IG% - Immature Granu locytes (promyelocytes, myelocytes and metamyelocytes) > 1% indicates that a LEFT SHIFT is Present. MCH (RBC) [Entitic mass] 30.3 pg 27.0-32.0 [facility] Nucleated RBC/100 WBC (Bld) [Ratio] 0 % 0-5 [facility] MCHC Auto (RBC) [Mass/Vol]Or dered By: Renard Burgos on 01-03-2023 MCHC (RBC) [Mass/Vol] 32.6 g/dL 32-36 [facility] No Panel InformationOrdered By: Renard Burgos on 01-03-2023 Prostate Specific Antigen Screen 3.37 ng/mL 0.00-4.00 [facility] Comment on above: This test was perfor med using the TPSA assay method for the[facility] chemistry system. Values obtained with differentassay methods cannot be used interchangably.When changing PSA assays in the course of monitoring apatient, additional sequential testing should be carriedout to confirm baseline values. Platelets bldOrdered By: Lyubov Burgos on 01-03-2023 Platelets (Bld) [#/Vol] 200 10*3/uL 150-450 [facility] Absolute lymphocyte countOrd ered By: Renard Burgos on 12-26-2022 Lymphocytes Auto (Unsp spec) [#/Vol] 1.80 10*3/uL 0.83-4.51 [facility] Basophil percentageOrdered B y: Renard Burgos on 12-26-2022 Basophils/100 WBC (Bld) 0.4 % 0-1 [facility] Eosinophils/100 WBC (Bld) 0.6 % 0-5 [facility] Neutrophils (Bld) [#/Vol] 6.2 10*3/uL 2.0-7.7 [facility] Neutrophils/100 WBC (Bld) 69.8 % 47-70 [facility] WBC (Bld) [#/Vol] 8.9 10*3/uL 4.4-11.0 [facility] Blood erythrocytes count (nu mber/volume)Ordered By: Renard Burgos on 12-26-2022 RBC (Bld) [#/Vol] 4.58 10*6/uL 4.6-6.[address] [facility] Blood hemoglobin measurement (mass/volume)Ordered By: Renard Burgos on 12-26-2022 Hemoglobin (Bld) [Mass/Vol] 14.0 g/dL 13.0-16.5 [facility] Blood lymphocytes/100 leukoc ytesOrdered By: Renard Burgos on 12-26-2022 Lymphocytes/100 WBC (Bld) 20.2 % 19-41 [facility] Blood monocytes/100 leukocyt esOrdered By: Renard Burgos on 12-26-2022 Monocytes/100 WBC (Bld) 8.6 % 0-10 [facility] Blood platelet mean volumeOr dered By: Renard Burgos on 12-26-2022 Platelet mean volume (Bld) [Entitic vol] 10.8 fL 6.2-12.0 [facility] Determination of erythrocyte mean corpuscular volume (MCV)Ordered By: Renard Burgos on 12-26-2022 MCV (RBC) [Entitic vol] 93.2 fL 80-94 [facility] Hematocrit Auto (Bld) [Volum e fraction]Ordered By: Renard Burgos on 12-26-2022 Hematocrit (Bld) [Volume fraction] 42.7 % 40-54 [facility] Laboratory - Hematology and Cell countsOrdered By: Renard Burgos on 12-26-2022 Erythrocyte distribution width (RBC) [Entitic vol] 42.5 fL 35.1-43.9 [facility] Erythrocyte distribution width (RBC) [Ratio] 12.5 % 11.6-14.6 [facility] Immature granulocytes/100 WBC (Bld) 0.400 % 0.0-0.9 [facility] Comment on above: IG% - Immature Granu locytes (promyelocytes, myelocytes and metamyelocytes) > 1% indicates that a LEFT SHIFT is Present. MCH (RBC) [Entitic mass] 30.6 pg 27.0-32.0 [facility] Nucleated RBC/100 WBC (Bld) [Ratio] 0 % 0-5 [facility] MCHC Auto (RBC) [Mass/Vol]Or dered By: Renard Burgos on 12-26-2022 MCHC (RBC) [Mass/Vol] 32.8 g/dL 32-36 [facility] Platelets bldOrdered By: Lyubov Burgos on 12-26-2022 Platelets (Bld) [#/Vol] 200 10*3/uL 150-450 [facility] Absolute lymphocyte countOrd ered By: Renard Burgos on 12-19-2022 Lymphocytes Auto (Unsp spec) [#/Vol] 2.24 10*3/uL 0.83-4.51 [facility] Basophil percentageOrdered B y: Renard Burgos on 12-19-2022 Basophils/100 WBC (Bld) 0.3 % 0-1 [facility] Eosinophils/100 WBC (Bld) 0.8 % 0-5 [facility] Neutrophils (Bld) [#/Vol] 5.7 10*3/uL 2.0-7.7 [facility] Neutrophils/100 WBC (Bld) 64.1 % 47-70 [facility] WBC (Bld) [#/Vol] 8.9 10*3/uL 4.4-11.0 [facility] Blood erythrocytes count (nu mber/volume)Ordered By: Renard Burgos on 08-21-2023 RBC (Bld) [#/Vol] 4.44 10*6/uL 4.6-6.[address] [facility] Blood hemoglobin measurement (mass/volume)Ordered By: Renard Burgos on 12-19-2022 Hemoglobin (Bld) [Mass/Vol] 13.5 g/dL 13.0-16.5 [facility] Blood lymphocytes/100 leukoc ytesOrdered By: Renard Burgos on 12-19-2022 Lymphocytes/100 WBC (Bld) 25.1 % 19-41 [facility] Blood monocytes/100 leukocyt esOrdered By: Renard Burgos on 12-19-2022 Monocytes/100 WBC (Bld) 9.4 % 0-10 [facility] Blood platelet mean volumeOr dered By: Renard Burgos on 12-19-2022 Platelet mean volume (Bld) [Entitic vol] 11.0 fL 6.2-12.0 [facility] Determination of erythrocyte mean corpuscular volume (MCV)Ordered By: Renard Burgos on 12-19-2022 MCV (RBC) [Entitic vol] 92.8 fL 80-94 [facility] Hematocrit Auto (Bld) [Volum e fraction]Ordered By: Renard Burgos on 12-19-2022 Hematocrit (Bld) [Volume fraction] 41.2 % 40-54 [facility] Laboratory - Hematology and Cell countsOrdered By: Renard Burgos on 12-19-2022 Erythrocyte distribution width (RBC) [Entitic vol] 43.2 fL 35.1-43.9 [facility] Erythrocyte distribution width (RBC) [Ratio] 12.7 % 11.6-14.6 [facility] Immature granulocytes/100 WBC (Bld) 0.300 % 0.0-0.9 [facility] Comment on above: IG% - Immature Granu locytes (promyelocytes, myelocytes and metamyelocytes) > 1% indicates that a LEFT SHIFT is Present. MCH (RBC) [Entitic mass] 30.4 pg 27.0-32.0 [facility] Nucleated RBC/100 WBC (Bld) [Ratio] 0 % 0-5 [facility] MCHC Auto (RBC) [Mass/Vol]Or dered By: Renard Burgos on 12-19-2022 MCHC (RBC) [Mass/Vol] 32.8 g/dL 32-36 [facility] Platelets bldOrdered By: Lyubov lizy Loretta on 12-19-2022 Platelets (Bld) [#/Vol] 194 10*3/uL 150-450 [facility] Absolute lymphocyte countOrd ered By: Renard Burgos on 12-12-2022 Lymphocytes Auto (Unsp spec) [#/Vol] 2.33 10*3/uL 0.83-4.51 [facility] Basophil percentageOrdered B y: Renard Burgos on 12-12-2022 Basophils/100 WBC (Bld) 0.6 % 0-1 [facility] Eosinophils/100 WBC (Bld) 0.9 % 0-5 [facility] Neutrophils (Bld) [#/Vol] 5.8 10*3/uL 2.0-7.7 [facility] Neutrophils/100 WBC (Bld) 63.5 % 47-70 [facility] WBC (Bld) [#/Vol] 9.1 10*3/uL 4.4-11.0 [facility] Blood erythrocytes count (nu mber/volume)Ordered By: Renard Burgos on 12-12-2022 RBC (Bld) [#/Vol] 4.52 10*6/uL 4.6-6.[address] [facility] Blood hemoglobin measurement (mass/volume)Ordered By: Renadr Burgos on 12-12-2022 Hemoglobin (Bld) [Mass/Vol] 13.9 g/dL 13.0-16.5 [facility] Blood lymphocytes/100 leukoc ytesOrdered By: Renard Burgos on 12-12-2022 Lymphocytes/100 WBC (Bld) 25.6 % 19-41 [facility] Blood monocytes/100 leukocyt esOrdered By: Renard Burgos on 12-12-2022 Monocytes/100 WBC (Bld) 9.1 % 0-10 [facility] Blood platelet mean volumeOr dered By: Renard Burgos on 12-12-2022 Platelet mean volume (Bld) [Entitic vol] 10.9 fL 6.2-12.0 [facility] Determination of erythrocyte mean corpuscular volume (MCV)Ordered By: Renard Burgos on 12-12-2022 MCV (RBC) [Entitic vol] 94.2 fL 80-94 [facility] Hematocrit Auto (Bld) [Volum e fraction]Ordered By: Renard Burgos on 12-12-2022 Hematocrit (Bld) [Volume fraction] 42.6 % 40-54 [facility] Laboratory - Hematology and Cell countsOrdered By: Renard Burgos on 12-12-2022 Erythrocyte distribution width (RBC) [Entitic vol] 44.3 fL 35.1-43.9 [facility] Erythrocyte distribution width (RBC) [Ratio] 12.8 % 11.6-14.6 [facility] Immature granulocytes/100 WBC (Bld) 0.300 % 0.0-0.9 [facility] Comment on above: IG% - Immature Granu locytes (promyelocytes, myelocytes and metamyelocytes) > 1% indicates that a LEFT SHIFT is Present. MCH (RBC) [Entitic mass] 30.8 pg 27.0-32.0 [facility] Nucleated RBC/100 WBC (Bld) [Ratio] 0 % 0-5 [facility] MCHC Auto (RBC) [Mass/Vol]Or dered By: Reanrd Burgos on 12-12-2022 MCHC (RBC) [Mass/Vol] 32.6 g/dL 32-36 [facility] Platelets bldOrdered By: Lyubov Burgos on 12-12-2022 Platelets (Bld) [#/Vol] 211 10*3/uL 150-450 [facility] Absolute lymphocyte countOrd ered By: Renard Burgos on 12-05-2022 Lymphocytes Auto (Unsp spec) [#/Vol] 1.94 10*3/uL 0.83-4.51 [facility] Basophil percentageOrdered B y: Renard Burgos on 12-05-2022 Basophils/100 WBC (Bld) 0.4 % 0-1 [facility] Eosinophils/100 WBC (Bld) 0.9 % 0-5 [facility] Neutrophils (Bld) [#/Vol] 4.1 10*3/uL 2.0-7.7 [facility] Neutrophils/100 WBC (Bld) 61.2 % 47-70 [facility] WBC (Bld) [#/Vol] 6.7 10*3/uL 4.4-11.0 [facility] Blood erythrocytes count (nu mber/volume)Ordered By: Renard Burgos on 12-05-2022 RBC (Bld) [#/Vol] 4.39 10*6/uL 4.6-6.[address] [facility] Blood hemoglobin measurement (mass/volume)Ordered By: Renard Burgos on 12-05-2022 Hemoglobin (Bld) [Mass/Vol] 13.3 g/dL 13.0-16.5 [facility] Blood lymphocytes/100 leukoc ytesOrdered By: Renard Burgos on 12-05-2022 Lymphocytes/100 WBC (Bld) 28.8 % 19-41 [facility] Blood monocytes/100 leukocyt esOrdered By: Renard Burgos on 12-05-2022 Monocytes/100 WBC (Bld) 8.3 % 0-10 [facility] Blood platelet mean volumeOr dered By: Renard Burgos on 12-05-2022 Platelet mean volume (Bld) [Entitic vol] 10.8 fL 6.2-12.0 [facility] Determination of erythrocyte mean corpuscular volume (MCV)Ordered By: Renard Burgos on 12-05-2022 MCV (RBC) [Entitic vol] 90.7 fL 80-94 [facility] Hematocrit Auto (Bld) [Volum e fraction]Ordered By: Renard Burgos on 12-05-2022 Hematocrit (Bld) [Volume fraction] 39.8 % 40-54 [facility] Laboratory - Hematology and Cell countsOrdered By: Renard Burgos on 12-05-2022 Erythrocyte distribution width (RBC) [Entitic vol] 41.8 fL 35.1-43.9 [facility] Erythrocyte distribution width (RBC) [Ratio] 12.6 % 11.6-14.6 [facility] Immature granulocytes/100 WBC (Bld) 0.400 % 0.0-0.9 [facility] Comment on above: IG% - Immature Granu locytes (promyelocytes, myelocytes and metamyelocytes) > 1% indicates that a LEFT SHIFT is Present. MCH (RBC) [Entitic mass] 30.3 pg 27.0-32.0 [facility] Nucleated RBC/100 WBC (Bld) [Ratio] 0 % 0-5 [facility] MCHC Auto (RBC) [Mass/Vol]Or dered By: Renard Burgos on 12-05-2022 MCHC (RBC) [Mass/Vol] 33.4 g/dL 32-36 [facility] Platelets bldOrdered By: Lyubov Burgos on 12-05-2022 Platelets (Bld) [#/Vol] 208 10*3/uL 150-450 [facility] Absolute lymphocyte countOrd ered By: Renard Burgos on 11-28-2022 Lymphocytes Auto (Unsp spec) [#/Vol] 2.07 10*3/uL 0.83-4.51 [facility] Basophil percentageOrdered B y: Renard Burgos on 11-28-2022 Basophils/100 WBC (Bld) 0.4 % 0-1 [facility] Eosinophils/100 WBC (Bld) 0.6 % 0-5 [facility] Neutrophils (Bld) [#/Vol] 5.1 10*3/uL 2.0-7.7 [facility] Neutrophils/100 WBC (Bld) 64.6 % 47-70 [facility] WBC (Bld) [#/Vol] 7.9 10*3/uL 4.4-11.0 [facility] Blood erythrocytes count (nu mber/volume)Ordered By: Renard Burgos on 11-28-2022 RBC (Bld) [#/Vol] 4.54 10*6/uL 4.6-6.[address] [facility] Blood hemoglobin measurement (mass/volume)Ordered By: Renard Burgos on 11-28-2022 Hemoglobin (Bld) [Mass/Vol] 13.7 g/dL 13.0-16.5 [facility] Blood lymphocytes/100 leukoc ytesOrdered By: Renard Burgos on 11-28-2022 Lymphocytes/100 WBC (Bld) 26.2 % 19-41 [facility] Blood monocytes/100 leukocyt esOrdered By: Renard Burgos on 11-28-2022 Monocytes/100 WBC (Bld) 7.7 % 0-10 [facility] Blood platelet mean volumeOr dered By: Renard Burgos on 11-28-2022 Platelet mean volume (Bld) [Entitic vol] 10.6 fL 6.2-12.0 [facility] Determination of erythrocyte mean corpuscular volume (MCV)Ordered By: Renard Burgos on 11-28-2022 MCV (RBC) [Entitic vol] 93.6 fL 80-94 [facility] Hematocrit Auto (Bld) [Volum e fraction]Ordered By: Renard Burgos on 11-28-2022 Hematocrit (Bld) [Volume fraction] 42.5 % 40-54 [facility] Laboratory - Hematology and Cell countsOrdered By: Renard Burgos on 11-28-2022 Erythrocyte distribution width (RBC) [Entitic vol] 43.5 fL 35.1-43.9 [facility] Erythrocyte distribution width (RBC) [Ratio] 12.7 % 11.6-14.6 [facility] Immature granulocytes/100 WBC (Bld) 0.500 % 0.0-0.9 [facility] Comment on above: IG% - Immature Granu locytes (promyelocytes, myelocytes and metamyelocytes) > 1% indicates that a LEFT SHIFT is Present. MCH (RBC) [Entitic mass] 30.2 pg 27.0-32.0 [facility] Nucleated RBC/100 WBC (Bld) [Ratio] 0 % 0-5 [facility] MCHC Auto (RBC) [Mass/Vol]Or dered By: Renard Burgos on 11-28-2022 MCHC (RBC) [Mass/Vol] 32.2 g/dL 32-36 [facility] Platelets bldOrdered By: Lyubov Burgos on 11-28-2022 Platelets (Bld) [#/Vol] 201 10*3/uL 150-450 [facility] Absolute lymphocyte countOrd ered By: Renard Burgos on 11-21-2022 Lymphocytes Auto (Unsp spec) [#/Vol] 2.32 10*3/uL 0.83-4.51 [facility] Basophil percentageOrdered B y: Renard Burgos on 11-21-2022 Basophils/100 WBC (Bld) 0.6 % 0-1 [facility] Eosinophils/100 WBC (Bld) 0.7 % 0-5 [facility] Neutrophils (Bld) [#/Vol] 5.0 10*3/uL 2.0-7.7 [facility] Neutrophils/100 WBC (Bld) 60.6 % 47-70 [facility] WBC (Bld) [#/Vol] 8.2 10*3/uL 4.4-11.0 [facility] Blood erythrocytes count (nu mber/volume)Ordered By: Renard Burgos on 11-21-2022 RBC (Bld) [#/Vol] 4.71 10*6/uL 4.6-6.[address] [facility] Blood hemoglobin measurement (mass/volume)Ordered By: Renard Burgos on 11-21-2022 Hemoglobin (Bld) [Mass/Vol] 14.3 g/dL 13.0-16.5 [facility] Blood lymphocytes/100 leukoc ytesOrdered By: Renard Burgos on 11-21-2022 Lymphocytes/100 WBC (Bld) 28.2 % 19-41 [facility] Blood monocytes/100 leukocyt esOrdered By: Renard Burgos on 11-21-2022 Monocytes/100 WBC (Bld) 9.2 % 0-10 [facility] Blood platelet mean volumeOr dered By: Renard Burgos on 11-21-2022 Platelet mean volume (Bld) [Entitic vol] 10.4 fL 6.2-12.0 [facility] Determination of erythrocyte mean corpuscular volume (MCV)Ordered By: Renard Burgos on 11-21-2022 MCV (RBC) [Entitic vol] 91.9 fL 80-94 [facility] Hematocrit Auto (Bld) [Volum e fraction]Ordered By: Renard Burgos on 11-21-2022 Hematocrit (Bld) [Volume fraction] 43.3 % 40-54 [facility] Laboratory - Hematology and Cell countsOrdered By: Renard Burgos on 11-21-2022 Erythrocyte distribution width (RBC) [Entitic vol] 43.1 fL 35.1-43.9 [facility] Erythrocyte distribution width (RBC) [Ratio] 12.8 % 11.6-14.6 [facility] Immature granulocytes/100 WBC (Bld) 0.700 % 0.0-0.9 [facility] Comment on above: IG% - Immature Granu locytes (promyelocytes, myelocytes and metamyelocytes) > 1% indicates that a LEFT SHIFT is Present. MCH (RBC) [Entitic mass] 30.4 pg 27.0-32.0 [facility] Nucleated RBC/100 WBC (Bld) [Ratio] 0 % 0-5 [facility] MCHC Auto (RBC) [Mass/Vol]Or dered By: Renard Burgos on 11-21-2022 MCHC (RBC) [Mass/Vol] 33.0 g/dL 32-36 [facility] Platelets bldOrdered By: Lyubov Burgos on 11-21-2022 Platelets (Bld) [#/Vol] 219 10*3/uL 150-450 [facility] Absolute lymphocyte countOrd ered By: Renard Burgos on 11-14-2022 Lymphocytes Auto (Unsp spec) [#/Vol] 1.82 10*3/uL 0.83-4.51 [facility] Basophil percentageOrdered B y: Renard Burgos on 11-14-2022 Basophils/100 WBC (Bld) 0.4 % 0-1 [facility] Chloride [Moles/Vol] 107 mmol/L 98-107 [facility] Eosinophils/100 WBC (Bld) 0.4 % 0-5 [facility] Glucose [Mass/Vol] 121 mg/dL 74-106 [facility] Comment on above: Fasting Glucose resu lt from 100 to 125 mg/dL suggests IMPAIRED HOMEOSTASIS per A.D.A. criteria. Neutrophils (Bld) [#/Vol] 4.7 10*3/uL 2.0-7.7 [facility] Neutrophils/100 WBC (Bld) 66.6 % 47-70 [facility] Potassium [Moles/Vol] 3.7 mmol/L 3.5-5.1 [facility] Sodium [Moles/Vol] 141 mmol/L 136-145 [facility] WBC (Bld) [#/Vol] 7.1 10*3/uL 4.4-11.0 [facility] Blood erythrocytes count (nu mber/volume)Ordered By: Renard Burgos on 11-14-2022 RBC (Bld) [#/Vol] 4.35 10*6/uL 4.6-6.[address] [facility] Blood hemoglobin measurement (mass/volume)Ordered By: Renard Burgos on 11-14-2022 Hemoglobin (Bld) [Mass/Vol] 13.6 g/dL 13.0-16.5 [facility] Blood lymphocytes/100 leukoc ytesOrdered By: Renard Burgos on 11-14-2022 Lymphocytes/100 WBC (Bld) 25.6 % 19-41 [facility] Blood monocytes/100 leukocyt esOrdered By: Renard Burgos on 11-14-2022 Monocytes/100 WBC (Bld) 6.6 % 0-10 [facility] Blood platelet mean volumeOr dered By: Renard Burgos on 11-14-2022 Platelet mean volume (Bld) [Entitic vol] 10.9 fL 6.2-12.0 [facility] Determination of erythrocyte mean corpuscular volume (MCV)Ordered By: Renard Burgos on 11-14-2022 MCV (RBC) [Entitic vol] 93.3 fL 80-94 [facility] Hematocrit Auto (Bld) [Volum e fraction]Ordered By: Renard Burgos on 11-14-2022 Hematocrit (Bld) [Volume fraction] 40.6 % 40-54 [facility] Laboratory - Chemistry and C hemistry - challengeOrdered By: Renard Burgos on 11-14-2022 CO2 [Moles/Vol] 31.0 mmol/L 21.0-32.0 [facility] Urea nitrogen/Creatinine [Mass ratio] 26.0 mg/mg 10-20 [facility] Laboratory - Hematology and Cell countsOrdered By: Renard Burgos on 11-14-2022 Erythrocyte distribution width (RBC) [Entitic vol] 43.9 fL 35.1-43.9 [facility] Erythrocyte distribution width (RBC) [Ratio] 12.8 % 11.6-14.6 [facility] Immature granulocytes/100 WBC (Bld) 0.400 % 0.0-0.9 [facility] Comment on above: IG% - Immature Granu locytes (promyelocytes, myelocytes and metamyelocytes) > 1% indicates that a LEFT SHIFT is Present. MCH (RBC) [Entitic mass] 31.3 pg 27.0-32.0 [facility] Nucleated RBC/100 WBC (Bld) [Ratio] 0 % 0-5 [facility] MCHC Auto (RBC) [Mass/Vol]Or dered By: Renard Burgos on 11-14-2022 MCHC (RBC) [Mass/Vol] 33.5 g/dL 32-36 [facility] No Panel InformationOrdered By: Renard Burgos on 11-14-2022 Estimated GFR (MDRD) Amer 147 mL/min >60 [facility] Comment on above: GFR Calc Estimated GFR (MDRD) Non-Af Amer 122 mL/min >60 [facility] Comment on above: Non- GFR Calc Platelets bldOrdered By: Lyubov Burgos on 11-14-2022 Platelets (Bld) [#/Vol] 202 10*3/uL 150-450 [facility] Serum or plasma calcium gordy urement (mass/volume)Ordered By: Renard Burgos on 11-14-2022 Calcium [Mass/Vol] 8.2 mg/dL 8.5-10.1 [facility] Serum or plasma creatinine m easurement (mass/volume)Ordered By: Renard Burgos on 11-14-2022 Creatinine [Mass/Vol] 0.69 mg/dL 0.70-1.30 [facility] Comment on above: The validity of the calculated GFR & GFRAA in patients over 70 years has not been determined. Clinical correlation is essential. Serum or plasma urea nitroge n measurement (mass/volume)Ordered By: Renard Burgos on 11-14-2022 Urea nitrogen [Mass/Vol] 18 mg/dL 7-18 [facility] Thin prep Papanicolaou smear with manual screeningOrdered By: Renard Burgos on 11-14-2022 Thin prep Papanicolaou smear with manual screening 3 5-15 [facility] Absolute lymphocyte countOrd ered By: Renard Burgos on 11-07-2022 Lymphocytes Auto (Unsp spec) [#/Vol] 1.99 10*3/uL 0.83-4.51 [facility] Basophil percentageOrdered B y: Renard Burgos on 11-07-2022 Basophils/100 WBC (Bld) 0.8 % 0-1 [facility] Eosinophils/100 WBC (Bld) 0.5 % 0-5 [facility] Neutrophils (Bld) [#/Vol] 5.1 10*3/uL 2.0-7.7 [facility] Neutrophils/100 WBC (Bld) 64.0 % 47-70 [facility] WBC (Bld) [#/Vol] 8.0 10*3/uL 4.4-11.0 [facility] Blood erythrocytes count (nu mber/volume)Ordered By: Renard Burgos on 11-07-2022 RBC (Bld) [#/Vol] 4.45 10*6/uL 4.6-6.[address] [facility] Blood hemoglobin measurement (mass/volume)Ordered By: Renard Burgos on 11-07-2022 Hemoglobin (Bld) [Mass/Vol] 13.7 g/dL 13.0-16.5 [facility] Blood lymphocytes/100 leukoc ytesOrdered By: Renard Burgos on 11-07-2022 Lymphocytes/100 WBC (Bld) 25.0 % 19-41 [facility] Blood monocytes/100 leukocyt esOrdered By: Renard Burgos on 11-07-2022 Monocytes/100 WBC (Bld) 9.4 % 0-10 [facility] Blood platelet mean volumeOr dered By: Renard Burgos on 11-07-2022 Platelet mean volume (Bld) [Entitic vol] 10.7 fL 6.2-12.0 [facility] Determination of erythrocyte mean corpuscular volume (MCV)Ordered By: Renard Burgos on 11-07-2022 MCV (RBC) [Entitic vol] 91.5 fL 80-94 [facility] Hematocrit Auto (Bld) [Volum e fraction]Ordered By: Renard Burgos on 11-07-2022 Hematocrit (Bld) [Volume fraction] 40.7 % 40-54 [facility] Laboratory - Hematology and Cell countsOrdered By: Renard Burgos on 11-07-2022 Erythrocyte distribution width (RBC) [Entitic vol] 42.4 fL 35.1-43.9 [facility] Erythrocyte distribution width (RBC) [Ratio] 12.8 % 11.6-14.6 [facility] Immature granulocytes/100 WBC (Bld) 0.300 % 0.0-0.9 [facility] Comment on above: IG% - Immature Granu locytes (promyelocytes, myelocytes and metamyelocytes) > 1% indicates that a LEFT SHIFT is Present. MCH (RBC) [Entitic mass] 30.8 pg 27.0-32.0 [facility] Nucleated RBC/100 WBC (Bld) [Ratio] 0 % 0-5 [facility] MCHC Auto (RBC) [Mass/Vol]Or dered By: Renard Burgos on 11-07-2022 MCHC (RBC) [Mass/Vol] 33.7 g/dL 32-36 [facility] Platelets bldOrdered By: Lyubov Burgos on 11-07-2022 Platelets (Bld) [#/Vol] 220 10*3/uL 150-450 [facility] Absolute lymphocyte countOrd ered By: Renard Burgos on 10-31-2022 Lymphocytes Auto (Unsp spec) [#/Vol] 1.97 10*3/uL 0.83-4.51 [facility] Basophil percentageOrdered B y: Renard Burgos on 10-31-2022 Basophils/100 WBC (Bld) 0.5 % 0-1 [facility] Eosinophils/100 WBC (Bld) 0.6 % 0-5 [facility] Neutrophils (Bld) [#/Vol] 6.7 10*3/uL 2.0-7.7 [facility] Neutrophils/100 WBC (Bld) 69.9 % 47-70 [facility] WBC (Bld) [#/Vol] 9.6 10*3/uL 4.4-11.0 [facility] Blood erythrocytes count (nu mber/volume)Ordered By: Renard Burgos on 10-31-2022 RBC (Bld) [#/Vol] 4.47 10*6/uL 4.6-6.[address] [facility] Blood hemoglobin measurement (mass/volume)Ordered By: Renard Burgos on 10-31-2022 Hemoglobin (Bld) [Mass/Vol] 13.5 g/dL 13.0-16.5 [facility] Blood lymphocytes/100 leukoc ytesOrdered By: Renard Burgos on 10-31-2022 Lymphocytes/100 WBC (Bld) 20.5 % 19-41 [facility] Blood monocytes/100 leukocyt esOrdered By: Renard Burgos on 10-31-2022 Monocytes/100 WBC (Bld) 7.9 % 0-10 [facility] Blood platelet mean volumeOr dered By: Renard Burgos on 10-31-2022 Platelet mean volume (Bld) [Entitic vol] 11.1 fL 6.2-12.0 [facility] Determination of erythrocyte mean corpuscular volume (MCV)Ordered By: Renard Burgos on 10-31-2022 MCV (RBC) [Entitic vol] 92.4 fL 80-94 [facility] Hematocrit Auto (Bld) [Volum e fraction]Ordered By: Renard Burgos on 10-31-2022 Hematocrit (Bld) [Volume fraction] 41.3 % 40-54 [facility] Laboratory - Hematology and Cell countsOrdered By: Renard Burgos on 10-31-2022 Erythrocyte distribution width (RBC) [Entitic vol] 42.9 fL 35.1-43.9 [facility] Erythrocyte distribution width (RBC) [Ratio] 12.7 % 11.6-14.6 [facility] Immature granulocytes/100 WBC (Bld) 0.600 % 0.0-0.9 [facility] Comment on above: IG% - Immature Granu locytes (promyelocytes, myelocytes and metamyelocytes) > 1% indicates that a LEFT SHIFT is Present. MCH (RBC) [Entitic mass] 30.2 pg 27.0-32.0 [facility] Nucleated RBC/100 WBC (Bld) [Ratio] 0 % 0-5 [facility] MCHC Auto (RBC) [Mass/Vol]Or dered By: Renard Burgos on 10-31-2022 MCHC (RBC) [Mass/Vol] 32.7 g/dL 32-36 [facility] Platelets bldOrdered By: Lyubov Burgos on 10-31-2022 Platelets (Bld) [#/Vol] 221 10*3/uL 150-450 [facility] Absolute lymphocyte countOrd ered By: Renard Burgos on 10-24-2022 Lymphocytes Auto (Unsp spec) [#/Vol] 1.96 10*3/uL 0.83-4.51 [facility] Basophil percentageOrdered B y: Renard Burgos on 10-24-2022 Basophils/100 WBC (Bld) 0.4 % 0-1 [facility] Eosinophils/100 WBC (Bld) 0.7 % 0-5 [facility] Neutrophils (Bld) [#/Vol] 4.5 10*3/uL 2.0-7.7 [facility] Neutrophils/100 WBC (Bld) 61.9 % 47-70 [facility] WBC (Bld) [#/Vol] 7.3 10*3/uL 4.4-11.0 [facility] Blood erythrocytes count (nu mber/volume)Ordered By: Renard Burgos on 10-24-2022 RBC (Bld) [#/Vol] 4.41 10*6/uL 4.6-6.[address] [facility] Blood hemoglobin measurement (mass/volume)Ordered By: Renard Burgos on 10-24-2022 Hemoglobin (Bld) [Mass/Vol] 13.2 g/dL 13.0-16.5 [facility] Blood lymphocytes/100 leukoc ytesOrdered By: Renard Burgos on 10-24-2022 Lymphocytes/100 WBC (Bld) 27.0 % 19-41 [facility] Blood monocytes/100 leukocyt esOrdered By: Renard Burgos on 10-24-2022 Monocytes/100 WBC (Bld) 9.4 % 0-10 [facility] Blood platelet mean volumeOr dered By: Renard Burgos on 10-24-2022 Platelet mean volume (Bld) [Entitic vol] 10.9 fL 6.2-12.0 [facility] Determination of erythrocyte mean corpuscular volume (MCV)Ordered By: Renard Burgos on 10-24-2022 MCV (RBC) [Entitic vol] 92.1 fL 80-94 [facility] Hematocrit Auto (Bld) [Volum e fraction]Ordered By: Renard Burgos on 10-24-2022 Hematocrit (Bld) [Volume fraction] 40.6 % 40-54 [facility] Laboratory - Hematology and Cell countsOrdered By: Renard Burgos on 10-24-2022 Erythrocyte distribution width (RBC) [Entitic vol] 42.8 fL 35.1-43.9 [facility] Erythrocyte distribution width (RBC) [Ratio] 12.8 % 11.6-14.6 [facility] Immature granulocytes/100 WBC (Bld) 0.600 % 0.0-0.9 [facility] Comment on above: IG% - Immature Granu locytes (promyelocytes, myelocytes and metamyelocytes) > 1% indicates that a LEFT SHIFT is Present. MCH (RBC) [Entitic mass] 29.9 pg 27.0-32.0 [facility] Nucleated RBC/100 WBC (Bld) [Ratio] 0 % 0-5 [facility] MCHC Auto (RBC) [Mass/Vol]Or dered By: Renard Burgos on 10-24-2022 MCHC (RBC) [Mass/Vol] 32.5 g/dL 32-36 [facility] Platelets bldOrdered By: Lyubov Burgos on 10-24-2022 Platelets (Bld) [#/Vol] 213 10*3/uL 150-450 [facility] Absolute lymphocyte countOrd ered By: Renard Burgos on 10-17-2022 Lymphocytes Auto (Unsp spec) [#/Vol] 2.05 10*3/uL 0.83-4.51 [facility] Basophil percentageOrdered B y: Renard Burgos on 10-17-2022 Basophils/100 WBC (Bld) 0.4 % 0-1 [facility] Eosinophils/100 WBC (Bld) 0.5 % 0-5 [facility] Neutrophils (Bld) [#/Vol] 6.7 10*3/uL 2.0-7.7 [facility] Neutrophils/100 WBC (Bld) 70.9 % 47-70 [facility] WBC (Bld) [#/Vol] 9.4 10*3/uL 4.4-11.0 [facility] Blood erythrocytes count (nu mber/volume)Ordered By: Renard Burgos on 10-17-2022 RBC (Bld) [#/Vol] 4.33 10*6/uL 4.6-6.[address] [facility] Blood hemoglobin measurement (mass/volume)Ordered By: Renard Burgos on 10-17-2022 Hemoglobin (Bld) [Mass/Vol] 13.3 g/dL 13.0-16.5 [facility] Blood lymphocytes/100 leukoc ytesOrdered By: Renard Burgos on 10-17-2022 Lymphocytes/100 WBC (Bld) 21.7 % 19-41 [facility] Blood monocytes/100 leukocyt esOrdered By: Renard Burgos on 10-17-2022 Monocytes/100 WBC (Bld) 6.1 % 0-10 [facility] Blood platelet mean volumeOr dered By: Renard Burgos on 10-17-2022 Platelet mean volume (Bld) [Entitic vol] 10.9 fL 6.2-12.0 [facility] Determination of erythrocyte mean corpuscular volume (MCV)Ordered By: Renard Burgos on 10-17-2022 MCV (RBC) [Entitic vol] 93.8 fL 80-94 [facility] Hematocrit Auto (Bld) [Volum e fraction]Ordered By: Renard Burgos on 10-17-2022 Hematocrit (Bld) [Volume fraction] 40.6 % 40-54 [facility] Laboratory - Hematology and Cell countsOrdered By: Renard Burgos on 10-17-2022 Erythrocyte distribution width (RBC) [Entitic vol] 42.7 fL 35.1-43.9 [facility] Erythrocyte distribution width (RBC) [Ratio] 12.4 % 11.6-14.6 [facility] Immature granulocytes/100 WBC (Bld) 0.400 % 0.0-0.9 [facility] Comment on above: IG% - Immature Granu locytes (promyelocytes, myelocytes and metamyelocytes) > 1% indicates that a LEFT SHIFT is Present. MCH (RBC) [Entitic mass] 30.7 pg 27.0-32.0 [facility] Nucleated RBC/100 WBC (Bld) [Ratio] 0 % 0-5 [facility] MCHC Auto (RBC) [Mass/Vol]Or dered By: Renard Burgos on 10-17-2022 MCHC (RBC) [Mass/Vol] 32.8 g/dL 32-36 [facility] Platelets bldOrdered By: Lyubov medel Loretta on 10-17-2022 Platelets (Bld) [#/Vol] 186 10*3/uL 150-450 [facility] Absolute lymphocyte countOrd ered By: Renard Burgos on 10-10-2022 Lymphocytes Auto (Unsp spec) [#/Vol] 2.21 10*3/uL 0.83-4.51 [facility] Basophil percentageOrdered B y: Renard Burgos on 10-10-2022 Basophils/100 WBC (Bld) 0.6 % 0-1 [facility] Eosinophils/100 WBC (Bld) 0.6 % 0-5 [facility] Neutrophils (Bld) [#/Vol] 4.7 10*3/uL 2.0-7.7 [facility] Neutrophils/100 WBC (Bld) 59.6 % 47-70 [facility] WBC (Bld) [#/Vol] 7.9 10*3/uL 4.4-11.0 [facility] Blood erythrocytes count (nu mber/volume)Ordered By: Renard Burgos on 10-10-2022 RBC (Bld) [#/Vol] 4.78 10*6/uL 4.6-6.[address] [facility] Blood hemoglobin measurement (mass/volume)Ordered By: Renard Burgos on 10-10-2022 Hemoglobin (Bld) [Mass/Vol] 14.4 g/dL 13.0-16.5 [facility] Blood lymphocytes/100 leukoc ytesOrdered By: Renard Burgos on 10-10-2022 Lymphocytes/100 WBC (Bld) 28.0 % 19-41 [facility] Blood monocytes/100 leukocyt esOrdered By: Renard Burgos on 10-10-2022 Monocytes/100 WBC (Bld) 10.8 % 0-10 [facility] Blood platelet mean volumeOr dered By: Renard Burgos on 10-10-2022 Platelet mean volume (Bld) [Entitic vol] 10.7 fL 6.2-12.0 [facility] Determination of erythrocyte mean corpuscular volume (MCV)Ordered By: Renard Burgos on 10-10-2022 MCV (RBC) [Entitic vol] 94.8 fL 80-94 [facility] Hematocrit Auto (Bld) [Volum e fraction]Ordered By: Renard Burgos on 10-10-2022 Hematocrit (Bld) [Volume fraction] 45.3 % 40-54 [facility] Laboratory - Hematology and Cell countsOrdered By: Renard Burgos on 10-10-2022 Erythrocyte distribution width (RBC) [Entitic vol] 43.8 fL 35.1-43.9 [facility] Erythrocyte distribution width (RBC) [Ratio] 12.6 % 11.6-14.6 [facility] Immature granulocytes/100 WBC (Bld) 0.400 % 0.0-0.9 [facility] Comment on above: IG% - Immature Granu locytes (promyelocytes, myelocytes and metamyelocytes) > 1% indicates that a LEFT SHIFT is Present. MCH (RBC) [Entitic mass] 30.1 pg 27.0-32.0 [facility] Nucleated RBC/100 WBC (Bld) [Ratio] 0 % 0-5 [facility] MCHC Auto (RBC) [Mass/Vol]Or dered By: Renard Burgos on 10-10-2022 MCHC (RBC) [Mass/Vol] 31.8 g/dL 32-36 [facility] Platelets bldOrdered By: Lyubov Burgos on 10-10-2022 Platelets (Bld) [#/Vol] 198 10*3/uL 150-450 [facility] Absolute lymphocyte countOrd ered By: Renard Burgos on 10-03-2022 Lymphocytes Auto (Unsp spec) [#/Vol] 2.00 10*3/uL 0.83-4.51 [facility] Basophil percentageOrdered B y: Renard Burgos on 10-03-2022 Basophils/100 WBC (Bld) 0.6 % 0-1 [facility] Bilirubin [Mass/Vol] 0.30 mg/dL 0.20-1.00 [facility] Comment on above: For patients on eltr ombopag therapy, use of Dimension [place] TBIL is not recommended. Chloride [Moles/Vol] 109 mmol/L 98-107 [facility] Cholesterol [Mass/Vol] 129 mg/dL <200 [facility] Comment on above: <200 mg/dL Desirable 200-240 mg/dL Borderline >240 mg/dL High Risk Eosinophils/100 WBC (Bld) 0.8 % 0-5 [facility] Glucose [Mass/Vol] 82 mg/dL 74-106 [facility] Neutrophils (Bld) [#/Vol] 5.1 10*3/uL 2.0-7.7 [facility] Neutrophils/100 WBC (Bld) 63.2 % 47-70 [facility] Potassium [Moles/Vol] 3.9 mmol/L 3.5-5.1 [facility] Protein [Mass/Vol] 6.1 g/dL 6.4-8.2 [facility] Sodium [Moles/Vol] 140 mmol/L 136-145 [facility] Triglyceride [Mass/Vol] 209 mg/dL <199 [facility] Comment on above: The drugs N-Acetylcy steine and Metamizole may falsely depress this assay.Serum Triglycerides Reference Interval Normal <150 mg/dL Borderline high 150 - 199 mg/dL High 200 - 499 mg/dL Very High > or = 500 mg/dL WBC (Bld) [#/Vol] 8.0 10*3/uL 4.4-11.0 [facility] Blood erythrocytes count (nu mber/volume)Ordered By: Renard Burgos on 10-03-2022 RBC (Bld) [#/Vol] 4.58 10*6/uL 4.6-6.[address] [facility] Blood hemoglobin measurement (mass/volume)Ordered By: Renard Burgos on 10-03-2022 Hemoglobin (Bld) [Mass/Vol] 13.9 g/dL 13.0-16.5 [facility] Blood lymphocytes/100 leukoc ytesOrdered By: Renard Burgos on 10-03-2022 Lymphocytes/100 WBC (Bld) 25.1 % 19-41 [facility] Blood monocytes/100 leukocyt esOrdered By: Renard Burgos on 10-03-2022 Monocytes/100 WBC (Bld) 10.0 % 0-10 [facility] Blood platelet mean volumeOr dered By: Renard Burgos on 10-03-2022 Platelet mean volume (Bld) [Entitic vol] 11.1 fL 6.2-12.0 [facility] Determination of erythrocyte mean corpuscular volume (MCV)Ordered By: Renard Burgos on 10-03-2022 MCV (RBC) [Entitic vol] 93.9 fL 80-94 [facility] Hematocrit Auto (Bld) [Volum e fraction]Ordered By: Renard Burgos on 10-03-2022 Hematocrit (Bld) [Volume fraction] 43.0 % 40-54 [facility] Laboratory - Chemistry and C hemistry - challengeOrdered By: Renard Burgos on 10-03-2022 ALP [Catalytic activity/Vol] 98 U/L 45-117 [facility] ALT [Catalytic activity/Vol] 19 U/L 16-61 [facility] CO2 [Moles/Vol] 31.0 mmol/L 21.0-32.0 [facility] Globulin (S) [Mass/Vol] 3.1 g/dL 2.2-4.2 [facility] Urea nitrogen/Creatinine [Mass ratio] 25.6 mg/mg 10-20 [facility] Laboratory - Hematology and Cell countsOrdered By: Renard Burgos on 10-03-2022 Erythrocyte distribution width (RBC) [Entitic vol] 43.8 fL 35.1-43.9 [facility] Erythrocyte distribution width (RBC) [Ratio] 12.7 % 11.6-14.6 [facility] Immature granulocytes/100 WBC (Bld) 0.300 % 0.0-0.9 [facility] Comment on above: IG% - Immature Granu locytes (promyelocytes, myelocytes and metamyelocytes) > 1% indicates that a LEFT SHIFT is Present. MCH (RBC) [Entitic mass] 30.3 pg 27.0-32.0 [facility] Nucleated RBC/100 WBC (Bld) [Ratio] 0 % 0-5 [facility] MCHC Auto (RBC) [Mass/Vol]Or dered By: Rneard Burgos on 10-03-2022 MCHC (RBC) [Mass/Vol] 32.3 g/dL 32-36 [facility] No Panel InformationOrdered By: Renard Burgos on 10-03-2022 Estimated GFR (MDRD) Amer 165 mL/min >60 [facility] Comment on above: GFR Calc Estimated GFR (MDRD) Non-Af Amer 137 mL/min >60 [facility] Comment on above: Non- GFR Calc Platelets bldOrdered By: Lyubov Burgos on 10-03-2022 Platelets (Bld) [#/Vol] 204 10*3/uL 150-450 [facility] Serum or plasma albumin gordy urement (mass/volume)Ordered By: Renard Burgos on 10-03-2022 Albumin [Mass/Vol] 3.0 g/dL 3.2-5.0 [facility] Serum or plasma albumin/glob ulin mass ratioOrdered By: Renard Burgos on 10-03-2022 Albumin/Globulin [Mass ratio] 1.0 {ratio} 0.9-2.4 [facility] Serum or plasma calcium gordy urement (mass/volume)Ordered By: Renard Burgos on 10-03-2022 Calcium [Mass/Vol] 8.4 mg/dL 8.5-10.1 [facility] Serum or plasma cholesterol in HDL measurement (mass/volume)Ordered By: Renard Burgos on 10-03-2022 Cholesterol in HDL [Mass/Vol] 29 mg/dL >40 [facility] Comment on above: The drugs N-Acetylcy steine and Metamizole may falsely depress this assay. Reference Range HDL <40 mg/dL Low HDL Cholesterol HDL >or= 60 mg/dL High HDL Cholesterol Serum or plasma cholesterol in VLDL measurement (mass/volume)Ordered By: Renard Burgos on 10-03-2022 Cholesterol in VLDL [Mass/Vol] 42 mg/dL 5-40 [facility] Serum or plasma creatinine m easurement (mass/volume)Ordered By: Renard Burgos on 10-03-2022 Creatinine [Mass/Vol] 0.63 mg/dL 0.70-1.30 [facility] Comment on above: The validity of the calculated GFR & GFRAA in patients over 70 years has not been determined. Clinical correlation is essential. Serum or plasma low density lipoprotein (LDL) cholesterol measurement (mass/volume)Ordered By: Renard Burgos on 10-03-2022 Cholesterol in LDL [Mass/Vol] 58 mg/dL 0-130 [facility] Serum or plasma urea nitroge n measurement (mass/volume)Ordered By: Renard Burgos on 10-03-2022 Urea nitrogen [Mass/Vol] 16 mg/dL 7-18 [facility] Thin prep Papanicolaou smear with manual screeningOrdered By: Renard Burgos on 10-03-2022 Thin prep Papanicolaou smear with manual screening 13 U/L 15-37 [facility] Thin prep Papanicolaou smear with manual screening 0 5-15 [facility] Absolute lymphocyte countOrd ered By: Renard Burgos on 09-19-2022 Lymphocytes Auto (Unsp spec) [#/Vol] 1.59 10*3/uL 0.83-4.51 [facility] Basophil percentageOrdered B y: Renard Burgos on 09-19-2022 Basophils/100 WBC (Bld) 0.5 % 0-1 [facility] Eosinophils/100 WBC (Bld) 0.3 % 0-5 [facility] Neutrophils (Bld) [#/Vol] 7.4 10*3/uL 2.0-7.7 [facility] Neutrophils/100 WBC (Bld) 75.0 % 47-70 [facility] WBC (Bld) [#/Vol] 9.9 10*3/uL 4.4-11.0 [facility] Blood erythrocytes count (nu mber/volume)Ordered By: Renard Burgos on 09-19-2022 RBC (Bld) [#/Vol] 4.46 10*6/uL 4.6-6.[address] [facility] Blood hemoglobin measurement (mass/volume)Ordered By: Renard Burgos on 09-19-2022 Hemoglobin (Bld) [Mass/Vol] 13.5 g/dL 13.0-16.5 [facility] Blood lymphocytes/100 leukoc ytesOrdered By: Renard Burgos on 09-19-2022 Lymphocytes/100 WBC (Bld) 16.1 % 19-41 [facility] Blood monocytes/100 leukocyt esOrdered By: Renard Burgos on 09-19-2022 Monocytes/100 WBC (Bld) 7.6 % 0-10 [facility] Blood platelet mean volumeOr dered By: Renard Burgos on 05-22-2023 Platelet mean volume (Bld) [Entitic vol] 10.8 fL 6.2-12.0 [facility] Determination of erythrocyte mean corpuscular volume (MCV)Ordered By: Renard Burgos on 09-19-2022 MCV (RBC) [Entitic vol] 92.2 fL 80-94 [facility] Hematocrit Auto (Bld) [Volum e fraction]Ordered By: Renard Burgos on 09-19-2022 Hematocrit (Bld) [Volume fraction] 41.1 % 40-54 [facility] Laboratory - Hematology and Cell countsOrdered By: Renard Burgos on 09-19-2022 Erythrocyte distribution width (RBC) [Entitic vol] 41.2 fL 35.1-43.9 [facility] Erythrocyte distribution width (RBC) [Ratio] 12.3 % 11.6-14.6 [facility] Immature granulocytes/100 WBC (Bld) 0.500 % 0.0-0.9 [facility] Comment on above: IG% - Immature Granu locytes (promyelocytes, myelocytes and metamyelocytes) > 1% indicates that a LEFT SHIFT is Present. MCH (RBC) [Entitic mass] 30.3 pg 27.0-32.0 [facility] Nucleated RBC/100 WBC (Bld) [Ratio] 0 % 0-5 [facility] MCHC Auto (RBC) [Mass/Vol]Or dered By: Renard Burgos on 09-19-2022 MCHC (RBC) [Mass/Vol] 32.8 g/dL 32-36 [facility] Platelets bldOrdered By: Lyubov Burgos on 09-19-2022 Platelets (Bld) [#/Vol] 245 10*3/uL 150-450 [facility] Absolute lymphocyte countOrd ered By: Renard Burgos on 09-12-2022 Lymphocytes Auto (Unsp spec) [#/Vol] 2.11 10*3/uL 0.83-4.51 [facility] Basophil percentageOrdered B y: Renard Burgos on 09-12-2022 Basophils/100 WBC (Bld) 0.5 % 0-1 [facility] Eosinophils/100 WBC (Bld) 0.7 % 0-5 [facility] Neutrophils (Bld) [#/Vol] 4.7 10*3/uL 2.0-7.7 [facility] Neutrophils/100 WBC (Bld) 63.6 % 47-70 [facility] WBC (Bld) [#/Vol] 7.3 10*3/uL 4.4-11.0 [facility] Blood erythrocytes count (nu mber/volume)Ordered By: Renard Burgos on 09-12-2022 RBC (Bld) [#/Vol] 4.40 10*6/uL 4.6-6.[address] [facility] Blood hemoglobin measurement (mass/volume)Ordered By: Renard Burgos on 09-12-2022 Hemoglobin (Bld) [Mass/Vol] 13.5 g/dL 13.0-16.5 [facility] Blood lymphocytes/100 leukoc ytesOrdered By: Renard Burgos on 09-12-2022 Lymphocytes/100 WBC (Bld) 28.8 % 19-41 [facility] Blood monocytes/100 leukocyt esOrdered By: Renard Burgos on 09-12-2022 Monocytes/100 WBC (Bld) 6.1 % 0-10 [facility] Blood platelet mean volumeOr dered By: Renard Burgos on 09-12-2022 Platelet mean volume (Bld) [Entitic vol] 10.7 fL 6.2-12.0 [facility] Determination of erythrocyte mean corpuscular volume (MCV)Ordered By: Renard Burgos on 09-12-2022 MCV (RBC) [Entitic vol] 91.4 fL 80-94 [facility] Hematocrit Auto (Bld) [Volum e fraction]Ordered By: Renard Burgos on 09-12-2022 Hematocrit (Bld) [Volume fraction] 40.2 % 40-54 [facility] Laboratory - Hematology and Cell countsOrdered By: Renard Burgos on 09-12-2022 Erythrocyte distribution width (RBC) [Entitic vol] 41.3 fL 35.1-43.9 [facility] Erythrocyte distribution width (RBC) [Ratio] 12.5 % 11.6-14.6 [facility] Immature granulocytes/100 WBC (Bld) 0.300 % 0.0-0.9 [facility] Comment on above: IG% - Immature Granu locytes (promyelocytes, myelocytes and metamyelocytes) > 1% indicates that a LEFT SHIFT is Present. MCH (RBC) [Entitic mass] 30.7 pg 27.0-32.0 [facility] Nucleated RBC/100 WBC (Bld) [Ratio] 0 % 0-5 [facility] MCHC Auto (RBC) [Mass/Vol]Or dered By: Renard Burgos on 09-12-2022 MCHC (RBC) [Mass/Vol] 33.6 g/dL 32-36 [facility] Platelets bldOrdered By: Lyubov Burgos on 09-12-2022 Platelets (Bld) [#/Vol] 197 10*3/uL 150-450 [facility] Absolute lymphocyte countOrd ered By: Renard Burgos on 09-05-2022 Lymphocytes Auto (Unsp spec) [#/Vol] 1.94 10*3/uL 0.83-4.51 [facility] Basophil percentageOrdered B y: Renard Burgos on 09-05-2022 Basophils/100 WBC (Bld) 0.5 % 0-1 [facility] Cholesterol [Mass/Vol] 136 mg/dL <200 [facility] Comment on above: <200 mg/dL Desirable 200-240 mg/dL Borderline >240 mg/dL High Risk Eosinophils/100 WBC (Bld) 0.4 % 0-5 [facility] Neutrophils (Bld) [#/Vol] 5.4 10*3/uL 2.0-7.7 [facility] Neutrophils/100 WBC (Bld) 67.5 % 47-70 [facility] Triglyceride [Mass/Vol] 304 mg/dL <199 [facility] Comment on above: The drugs N-Acetylcy steine and Metamizole may falsely depress this assay.Serum Triglycerides Reference Interval Normal <150 mg/dL Borderline high 150 - 199 mg/dL High 200 - 499 mg/dL Very High > or = 500 mg/dL WBC (Bld) [#/Vol] 7.9 10*3/uL 4.4-11.0 [facility] Blood erythrocytes count (nu mber/volume)Ordered By: Renard Burgos on 09-05-2022 RBC (Bld) [#/Vol] 4.28 10*6/uL 4.6-6.[address] [facility] Blood hemoglobin measurement (mass/volume)Ordered By: Renard Burgos on 09-05-2022 Hemoglobin (Bld) [Mass/Vol] 12.9 g/dL 13.0-16.5 [facility] Blood lymphocytes/100 leukoc ytesOrdered By: Renard Burgos on 09-05-2022 Lymphocytes/100 WBC (Bld) 24.5 % 19-41 [facility] Blood monocytes/100 leukocyt esOrdered By: Renard Burgos on 09-05-2022 Monocytes/100 WBC (Bld) 6.6 % 0-10 [facility] Blood platelet mean volumeOr dered By: Renard Burgos on 09-05-2022 Platelet mean volume (Bld) [Entitic vol] 10.7 fL 6.2-12.0 [facility] Determination of erythrocyte mean corpuscular volume (MCV)Ordered By: Renard Burgos on 09-05-2022 MCV (RBC) [Entitic vol] 91.4 fL 80-94 [facility] Hematocrit Auto (Bld) [Volum e fraction]Ordered By: Renard Burgos on 09-05-2022 Hematocrit (Bld) [Volume fraction] 39.1 % 40-54 [facility] Laboratory - Hematology and Cell countsOrdered By: Renard Burgos on 09-05-2022 Erythrocyte distribution width (RBC) [Entitic vol] 41.5 fL 35.1-43.9 [facility] Erythrocyte distribution width (RBC) [Ratio] 12.6 % 11.6-14.6 [facility] Immature granulocytes/100 WBC (Bld) 0.500 % 0.0-0.9 [facility] Comment on above: IG% - Immature Granu locytes (promyelocytes, myelocytes and metamyelocytes) > 1% indicates that a LEFT SHIFT is Present. MCH (RBC) [Entitic mass] 30.1 pg 27.0-32.0 [facility] Nucleated RBC/100 WBC (Bld) [Ratio] 0 % 0-5 [facility] MCHC Auto (RBC) [Mass/Vol]Or dered By: Renard Burgos on 09-05-2022 MCHC (RBC) [Mass/Vol] 33.0 g/dL 32-36 [facility] Platelets bldOrdered By: Lyubov Burgos on 09-05-2022 Platelets (Bld) [#/Vol] 200 10*3/uL 150-450 [facility] Serum or plasma cholesterol in HDL measurement (mass/volume)Ordered By: Renard Burgos on 09-05-2022 Cholesterol in HDL [Mass/Vol] 24 mg/dL >40 [facility] Comment on above: The drugs N-Acetylcy steine and Metamizole may falsely depress this assay. Reference Range HDL <40 mg/dL Low HDL Cholesterol HDL >or= 60 mg/dL High HDL Cholesterol Serum or plasma cholesterol in VLDL measurement (mass/volume)Ordered By: Renard Burgos on 09-05-2022 Cholesterol in VLDL [Mass/Vol] 61 mg/dL 5-40 [facility] Serum or plasma low density lipoprotein (LDL) cholesterol measurement (mass/volume)Ordered By: Renard Burgos on 09-05-2022 Cholesterol in LDL [Mass/Vol] 51 mg/dL 0-130 [facility] Absolute lymphocyte countOrd ered By: Renard Burgos on 08-29-2022 Lymphocytes Auto (Unsp spec) [#/Vol] 1.91 10*3/uL 0.83-4.51 [facility] Basophil percentageOrdered B y: Renard Burgos on 08-29-2022 Basophils/100 WBC (Bld) 0.4 % 0-1 [facility] Eosinophils/100 WBC (Bld) 0.4 % 0-5 [facility] Neutrophils (Bld) [#/Vol] 4.8 10*3/uL 2.0-7.7 [facility] Neutrophils/100 WBC (Bld) 66.0 % 47-70 [facility] WBC (Bld) [#/Vol] 7.3 10*3/uL 4.4-11.0 [facility] Blood erythrocytes count (nu mber/volume)Ordered By: Renard Burgos on 08-29-2022 RBC (Bld) [#/Vol] 4.43 10*6/uL 4.6-6.[address] [facility] Blood hemoglobin measurement (mass/volume)Ordered By: Renard Burgos on 08-29-2022 Hemoglobin (Bld) [Mass/Vol] 13.6 g/dL 13.0-16.5 [facility] Blood lymphocytes/100 leukoc ytesOrdered By: Renard Burgos on 08-29-2022 Lymphocytes/100 WBC (Bld) 26.2 % 19-41 [facility] Blood monocytes/100 leukocyt esOrdered By: Renard Burgos on 08-29-2022 Monocytes/100 WBC (Bld) 6.6 % 0-10 [facility] Blood platelet mean volumeOr dered By: Renard Burgos on 08-29-2022 Platelet mean volume (Bld) [Entitic vol] 11.0 fL 6.2-12.0 [facility] Determination of erythrocyte mean corpuscular volume (MCV)Ordered By: Renard Burgos on 08-29-2022 MCV (RBC) [Entitic vol] 92.1 fL 80-94 [facility] Hematocrit Auto (Bld) [Volum e fraction]Ordered By: Renard Burgos on 08-29-2022 Hematocrit (Bld) [Volume fraction] 40.8 % 40-54 [facility] Laboratory - Hematology and Cell countsOrdered By: Renard Burgos on 08-29-2022 Erythrocyte distribution width (RBC) [Entitic vol] 42.0 fL 35.1-43.9 [facility] Erythrocyte distribution width (RBC) [Ratio] 12.4 % 11.6-14.6 [facility] Immature granulocytes/100 WBC (Bld) 0.400 % 0.0-0.9 [facility] Comment on above: IG% - Immature Granu locytes (promyelocytes, myelocytes and metamyelocytes) > 1% indicates that a LEFT SHIFT is Present. MCH (RBC) [Entitic mass] 30.7 pg 27.0-32.0 [facility] Nucleated RBC/100 WBC (Bld) [Ratio] 0 % 0-5 [facility] MCHC Auto (RBC) [Mass/Vol]Or dered By: Renard Burgos on 08-29-2022 MCHC (RBC) [Mass/Vol] 33.3 g/dL 32-36 [facility] Platelets bldOrdered By: Lyubov Burgos on 08-29-2022 Platelets (Bld) [#/Vol] 195 10*3/uL 150-450 [facility] Absolute lymphocyte countOrd ered By: Renard Burgos on 08-22-2022 Lymphocytes Auto (Unsp spec) [#/Vol] 1.86 10*3/uL 0.83-4.51 [facility] Basophil percentageOrdered B y: Renard Burgos on 08-22-2022 Basophils/100 WBC (Bld) 0.4 % 0-1 [facility] Eosinophils/100 WBC (Bld) 0.4 % 0-5 [facility] Neutrophils (Bld) [#/Vol] 6.5 10*3/uL 2.0-7.7 [facility] Neutrophils/100 WBC (Bld) 70.5 % 47-70 [facility] WBC (Bld) [#/Vol] 9.3 10*3/uL 4.4-11.0 [facility] Blood erythrocytes count (nu mber/volume)Ordered By: Renard Burgos on 08-22-2022 RBC (Bld) [#/Vol] 4.55 10*6/uL 4.6-6.[address] [facility] Blood hemoglobin measurement (mass/volume)Ordered By: Renard Burgos on 08-22-2022 Hemoglobin (Bld) [Mass/Vol] 14.1 g/dL 13.0-16.5 [facility] Blood lymphocytes/100 leukoc ytesOrdered By: Renard Burgos on 08-22-2022 Lymphocytes/100 WBC (Bld) 20.1 % 19-41 [facility] Blood monocytes/100 leukocyt esOrdered By: Renard Burgos on 08-22-2022 Monocytes/100 WBC (Bld) 8.3 % 0-10 [facility] Blood platelet mean volumeOr dered By: Renard Burgos on 08-22-2022 Platelet mean volume (Bld) [Entitic vol] 10.8 fL 6.2-12.0 [facility] Determination of erythrocyte mean corpuscular volume (MCV)Ordered By: Renard Burgos on 08-22-2022 MCV (RBC) [Entitic vol] 91.9 fL 80-94 [facility] Hematocrit Auto (Bld) [Volum e fraction]Ordered By: Renard Burgos on 08-22-2022 Hematocrit (Bld) [Volume fraction] 41.8 % 40-54 [facility] Laboratory - Hematology and Cell countsOrdered By: Renard Burgos on 08-22-2022 Erythrocyte distribution width (RBC) [Entitic vol] 42.5 fL 35.1-43.9 [facility] Erythrocyte distribution width (RBC) [Ratio] 12.6 % 11.6-14.6 [facility] Immature granulocytes/100 WBC (Bld) 0.300 % 0.0-0.9 [facility] Comment on above: IG% - Immature Granu locytes (promyelocytes, myelocytes and metamyelocytes) > 1% indicates that a LEFT SHIFT is Present. MCH (RBC) [Entitic mass] 31.0 pg 27.0-32.0 [facility] Nucleated RBC/100 WBC (Bld) [Ratio] 0 % 0-5 [facility] MCHC Auto (RBC) [Mass/Vol]Or dered By: Renard Burgos on 08-22-2022 MCHC (RBC) [Mass/Vol] 33.7 g/dL 32-36 [facility] Platelets bldOrdered By: Lyubov Burgos on 08-22-2022 Platelets (Bld) [#/Vol] 197 10*3/uL 150-450 [facility] Absolute lymphocyte countOrd ered By: Renard Burgos on 08-15-2022 Lymphocytes Auto (Unsp spec) [#/Vol] 1.88 10*3/uL 0.83-4.51 [facility] Basophil percentageOrdered B y: Renard Burgos on 08-15-2022 Basophils/100 WBC (Bld) 0.5 % 0-1 [facility] Eosinophils/100 WBC (Bld) 0.5 % 0-5 [facility] Neutrophils (Bld) [#/Vol] 5.1 10*3/uL 2.0-7.7 [facility] Neutrophils/100 WBC (Bld) 65.0 % 47-70 [facility] WBC (Bld) [#/Vol] 7.9 10*3/uL 4.4-11.0 [facility] Blood erythrocytes count (nu mber/volume)Ordered By: Renard Burgos on 08-15-2022 RBC (Bld) [#/Vol] 4.48 10*6/uL 4.6-6.[address] [facility] Blood hemoglobin measurement (mass/volume)Ordered By: Renard Burgos on 08-15-2022 Hemoglobin (Bld) [Mass/Vol] 13.7 g/dL 13.0-16.5 [facility] Blood lymphocytes/100 leukoc ytesOrdered By: Renard Burgos on 08-15-2022 Lymphocytes/100 WBC (Bld) 23.9 % 19-41 [facility] Blood monocytes/100 leukocyt esOrdered By: Renard Burgos on 08-15-2022 Monocytes/100 WBC (Bld) 9.8 % 0-10 [facility] Blood platelet mean volumeOr dered By: Renard Burgos on 08-15-2022 Platelet mean volume (Bld) [Entitic vol] 10.7 fL 6.2-12.0 [facility] Determination of erythrocyte mean corpuscular volume (MCV)Ordered By: Renard Burgos on 08-15-2022 MCV (RBC) [Entitic vol] 91.1 fL 80-94 [facility] Hematocrit Auto (Bld) [Volum e fraction]Ordered By: Renrad Burgos on 08-15-2022 Hematocrit (Bld) [Volume fraction] 40.8 % 40-54 [facility] Laboratory - Hematology and Cell countsOrdered By: Renard Burgos on 08-15-2022 Erythrocyte distribution width (RBC) [Entitic vol] 41.0 fL 35.1-43.9 [facility] Erythrocyte distribution width (RBC) [Ratio] 12.4 % 11.6-14.6 [facility] Immature granulocytes/100 WBC (Bld) 0.300 % 0.0-0.9 [facility] Comment on above: IG% - Immature Granu locytes (promyelocytes, myelocytes and metamyelocytes) > 1% indicates that a LEFT SHIFT is Present. MCH (RBC) [Entitic mass] 30.6 pg 27.0-32.0 [facility] Nucleated RBC/100 WBC (Bld) [Ratio] 0 % 0-5 [facility] MCHC Auto (RBC) [Mass/Vol]Or dered By: Renard Burgos on 08-15-2022 MCHC (RBC) [Mass/Vol] 33.6 g/dL 32-36 [facility] Platelets bldOrdered By: Lyubov medel Loretta on 08-15-2022 Platelets (Bld) [#/Vol] 212 10*3/uL 150-450 [facility] Absolute lymphocyte countOrd ered By: Renard Burgos on 08-08-2022 Lymphocytes Auto (Unsp spec) [#/Vol] 1.96 10*3/uL 0.83-4.51 [facility] Basophil percentageOrdered B y: Renard Burgos on 08-08-2022 Basophils/100 WBC (Bld) 0.5 % 0-1 [facility] Eosinophils/100 WBC (Bld) 0.5 % 0-5 [facility] Neutrophils (Bld) [#/Vol] 4.7 10*3/uL 2.0-7.7 [facility] Neutrophils/100 WBC (Bld) 64.1 % 47-70 [facility] WBC (Bld) [#/Vol] 7.4 10*3/uL 4.4-11.0 [facility] Blood erythrocytes count (nu mber/volume)Ordered By: Renard Burgos on 08-08-2022 RBC (Bld) [#/Vol] 4.44 10*6/uL 4.6-6.[address] [facility] Blood hemoglobin measurement (mass/volume)Ordered By: Renard Burgos on 08-08-2022 Hemoglobin (Bld) [Mass/Vol] 13.6 g/dL 13.0-16.5 [facility] Blood lymphocytes/100 leukoc ytesOrdered By: eRnard Burgos on 08-08-2022 Lymphocytes/100 WBC (Bld) 26.5 % 19-41 [facility] Blood monocytes/100 leukocyt esOrdered By: Renard Burgos on 08-08-2022 Monocytes/100 WBC (Bld) 8.1 % 0-10 [facility] Blood platelet mean volumeOr dered By: Renard Burgos on 08-08-2022 Platelet mean volume (Bld) [Entitic vol] 10.8 fL 6.2-12.0 [facility] Determination of erythrocyte mean corpuscular volume (MCV)Ordered By: Renard Burgos on 08-08-2022 MCV (RBC) [Entitic vol] 91.7 fL 80-94 [facility] Hematocrit Auto (Bld) [Volum e fraction]Ordered By: Renard Burgos on 08-08-2022 Hematocrit (Bld) [Volume fraction] 40.7 % 40-54 [facility] Laboratory - Hematology and Cell countsOrdered By: Renard Burgos on 08-08-2022 Erythrocyte distribution width (RBC) [Entitic vol] 42.7 fL 35.1-43.9 [facility] Erythrocyte distribution width (RBC) [Ratio] 12.6 % 11.6-14.6 [facility] Immature granulocytes/100 WBC (Bld) 0.300 % 0.0-0.9 [facility] Comment on above: IG% - Immature Granu locytes (promyelocytes, myelocytes and metamyelocytes) > 1% indicates that a LEFT SHIFT is Present. MCH (RBC) [Entitic mass] 30.6 pg 27.0-32.0 [facility] Nucleated RBC/100 WBC (Bld) [Ratio] 0 % 0-5 [facility] MCHC Auto (RBC) [Mass/Vol]Or dered By: Renard Burgos on 08-08-2022 MCHC (RBC) [Mass/Vol] 33.4 g/dL 32-36 [facility] Platelets bldOrdered By: Lyubov Burgos on 08-08-2022 Platelets (Bld) [#/Vol] 187 10*3/uL 150-450 [facility] Absolute lymphocyte countOrd ered By: Renard Burgos on 08-01-2022 Lymphocytes Auto (Unsp spec) [#/Vol] 2.09 10*3/uL 0.83-4.51 [facility] Basophil percentageOrdered B y: Renard Burgos on 08-01-2022 Basophils/100 WBC (Bld) 0.4 % 0-1 [facility] Eosinophils/100 WBC (Bld) 0.4 % 0-5 [facility] Neutrophils (Bld) [#/Vol] 6.6 10*3/uL 2.0-7.7 [facility] Neutrophils/100 WBC (Bld) 69.1 % 47-70 [facility] WBC (Bld) [#/Vol] 9.5 10*3/uL 4.4-11.0 [facility] Blood erythrocytes count (nu mber/volume)Ordered By: Renard Burgos on 08-01-2022 RBC (Bld) [#/Vol] 4.48 10*6/uL 4.6-6.[address] [facility] Blood hemoglobin measurement (mass/volume)Ordered By: Renard Burgos on 08-01-2022 Hemoglobin (Bld) [Mass/Vol] 13.9 g/dL 13.0-16.5 [facility] Blood lymphocytes/100 leukoc ytesOrdered By: Renard Burgos on 08-01-2022 Lymphocytes/100 WBC (Bld) 21.9 % 19-41 [facility] Blood monocytes/100 leukocyt esOrdered By: Renard Burgos on 08-01-2022 Monocytes/100 WBC (Bld) 7.9 % 0-10 [facility] Blood platelet mean volumeOr dered By: Renard Burgos on 08-01-2022 Platelet mean volume (Bld) [Entitic vol] 11.0 fL 6.2-12.0 [facility] Determination of erythrocyte mean corpuscular volume (MCV)Ordered By: Renard Burgos on 08-01-2022 MCV (RBC) [Entitic vol] 91.5 fL 80-94 [facility] Hematocrit Auto (Bld) [Volum e fraction]Ordered By: Renard Burgos on 08-01-2022 Hematocrit (Bld) [Volume fraction] 41.0 % 40-54 [facility] Laboratory - Hematology and Cell countsOrdered By: Renard Burgos on 08-01-2022 Erythrocyte distribution width (RBC) [Entitic vol] 41.6 fL 35.1-43.9 [facility] Erythrocyte distribution width (RBC) [Ratio] 12.5 % 11.6-14.6 [facility] Immature granulocytes/100 WBC (Bld) 0.300 % 0.0-0.9 [facility] Comment on above: IG% - Immature Granu locytes (promyelocytes, myelocytes and metamyelocytes) > 1% indicates that a LEFT SHIFT is Present. MCH (RBC) [Entitic mass] 31.0 pg 27.0-32.0 [facility] Nucleated RBC/100 WBC (Bld) [Ratio] 0 % 0-5 [facility] MCHC Auto (RBC) [Mass/Vol]Or dered By: Renard Burgos on 08-01-2022 MCHC (RBC) [Mass/Vol] 33.9 g/dL 32-36 [facility] Platelets bldOrdered By: Lyubov Burgos on 08-01-2022 Platelets (Bld) [#/Vol] 208 10*3/uL 150-450 [facility] Absolute lymphocyte countOrd ered By: Renard Burgos on 07-25-2022 Lymphocytes Auto (Unsp spec) [#/Vol] 2.16 10*3/uL 0.83-4.51 [facility] Basophil percentageOrdered B y: Renard Burgos on 07-25-2022 Basophils/100 WBC (Bld) 0.6 % 0-1 [facility] Eosinophils/100 WBC (Bld) 0.6 % 0-5 [facility] Neutrophils (Bld) [#/Vol] 5.4 10*3/uL 2.0-7.7 [facility] Neutrophils/100 WBC (Bld) 64.5 % 47-70 [facility] WBC (Bld) [#/Vol] 8.4 10*3/uL 4.4-11.0 [facility] Blood erythrocytes count (nu mber/volume)Ordered By: Renard Burgos on 07-25-2022 RBC (Bld) [#/Vol] 4.45 10*6/uL 4.6-6.[address] [facility] Blood hemoglobin measurement (mass/volume)Ordered By: Renard Burgos on 07-25-2022 Hemoglobin (Bld) [Mass/Vol] 13.4 g/dL 13.0-16.5 [facility] Blood lymphocytes/100 leukoc ytesOrdered By: Renard Burgos on 07-25-2022 Lymphocytes/100 WBC (Bld) 25.7 % 19-41 [facility] Blood monocytes/100 leukocyt esOrdered By: Renard Burgos on 07-25-2022 Monocytes/100 WBC (Bld) 8.4 % 0-10 [facility] Blood platelet mean volumeOr dered By: Renard Burgos on 07-25-2022 Platelet mean volume (Bld) [Entitic vol] 11.0 fL 6.2-12.0 [facility] Determination of erythrocyte mean corpuscular volume (MCV)Ordered By: Renard Burgos on 07-25-2022 MCV (RBC) [Entitic vol] 92.8 fL 80-94 [facility] Hematocrit Auto (Bld) [Volum e fraction]Ordered By: Renard Burgos on 07-25-2022 Hematocrit (Bld) [Volume fraction] 41.3 % 40-54 [facility] - Hematology and Cell countsOrdered By: Renard Burgos on 07-25-2022 Erythrocyte distribution width (RBC) [Entitic vol] 42.5 fL 35.1-43.9 [facility] Erythrocyte distribution width (RBC) [Ratio] 12.5 % 11.6-14.6 [facility] Immature granulocytes/100 WBC (Bld) 0.200 % 0.0-0.9 [facility] Comment on above: IG% - Immature Granu locytes (promyelocytes, myelocytes and metamyelocytes) > 1% indicates that a LEFT SHIFT is Present. MCH (RBC) [Entitic mass] 30.1 pg 27.0-32.0 [facility] Nucleated RBC/100 WBC (Bld) [Ratio] 0 % 0-5 [facility] MCHC Auto (RBC) [Mass/Vol]Or dered By: Renard Burgos on 07-25-2022 MCHC (RBC) [Mass/Vol] 32.4 g/dL 32-36 [facility] Platelets bldOrdered By: Lyubov Burgos on 07-25-2022 Platelets (Bld) [#/Vol] 200 10*3/uL 150-450 [facility] No Panel InformationOrdered By: Renard Burgos on 07-19-2022 Vitamin D 25-Hydroxy 34.2 ng/mL [facility] Comment on above: Vitamin D 25(OH) Sta tus Range Deficiency <20 ng/mL (50nmol/L) Insufficiency 20 - 30 ng/mL (50 - 75 nmol/L) Sufficiency 30 - 100 ng/mL (75 - 250 nmol/L) Toxicity >100 ng/mL (>250 nmol/L) Absolute lymphocyte countOrd ered By: Renadr Burgos on 07-18-2022 Lymphocytes Auto (Unsp spec) [#/Vol] 2.48 10*3/uL 0.83-4.51 [facility] Basophil percentageOrdered B y: Renard Burgos on 07-18-2022 Basophils/100 WBC (Bld) 0.5 % 0-1 [facility] Eosinophils/100 WBC (Bld) 0.6 % 0-5 [facility] Neutrophils (Bld) [#/Vol] 5.9 10*3/uL 2.0-7.7 [facility] Neutrophils/100 WBC (Bld) 61.6 % 47-70 [facility] WBC (Bld) [#/Vol] 9.6 10*3/uL 4.4-11.0 [facility] Blood erythrocytes count (nu mber/volume)Ordered By: Renard Burgos on 07-18-2022 RBC (Bld) [#/Vol] 4.56 10*6/uL 4.6-6.[address] [facility] Blood hemoglobin measurement (mass/volume)Ordered By: Renard Burgos on 07-18-2022 Hemoglobin (Bld) [Mass/Vol] 13.9 g/dL 13.0-16.5 [facility] Blood lymphocytes/100 leukoc ytesOrdered By: Renard Burgos on 07-18-2022 Lymphocytes/100 WBC (Bld) 25.9 % 19-41 [facility] Blood monocytes/100 leukocyt esOrdered By: Renard Burgos on 07-18-2022 Monocytes/100 WBC (Bld) 11.0 % 0-10 [facility] Blood platelet mean volumeOr dered By: Renard Burgos on 07-18-2022 Platelet mean volume (Bld) [Entitic vol] 11.3 fL 6.2-12.0 [facility] Determination of erythrocyte mean corpuscular volume (MCV)Ordered By: Renard Burgos on 07-18-2022 MCV (RBC) [Entitic vol] 93.9 fL 80-94 [facility] Hematocrit Auto (Bld) [Volum e fraction]Ordered By: Renard Burgos on 07-18-2022 Hematocrit (Bld) [Volume fraction] 42.8 % 40-54 [facility] Laboratory - Hematology and Cell countsOrdered By: Renard Burgos on 07-18-2022 Erythrocyte distribution width (RBC) [Entitic vol] 44.0 fL 35.1-43.9 [facility] Erythrocyte distribution width (RBC) [Ratio] 12.8 % 11.6-14.6 [facility] Immature granulocytes/100 WBC (Bld) 0.400 % 0.0-0.9 [facility] Comment on above: IG% - Immature Granu locytes (promyelocytes, myelocytes and metamyelocytes) > 1% indicates that a LEFT SHIFT is Present. MCH (RBC) [Entitic mass] 30.5 pg 27.0-32.0 [facility] Nucleated RBC/100 WBC (Bld) [Ratio] 0 % 0-5 [facility] MCHC Auto (RBC) [Mass/Vol]Or dered By: Renard Burgos on 07-18-2022 MCHC (RBC) [Mass/Vol] 32.5 g/dL 32-36 [facility] Platelets bldOrdered By: Lyubov Burgos on 07-18-2022 Platelets (Bld) [#/Vol] 207 10*3/uL 150-450 [facility] Absolute lymphocyte countOrd ered By: Renard Burgos on 07-11-2022 Lymphocytes Auto (Unsp spec) [#/Vol] 2.37 10*3/uL 0.83-4.51 [facility] Basophil percentageOrdered B y: Renard Burgos on 07-11-2022 Basophils/100 WBC (Bld) 0.6 % 0-1 [facility] Eosinophils/100 WBC (Bld) 0.5 % 0-5 [facility] Neutrophils (Bld) [#/Vol] 5.3 10*3/uL 2.0-7.7 [facility] Neutrophils/100 WBC (Bld) 61.8 % 47-70 [facility] WBC (Bld) [#/Vol] 8.5 10*3/uL 4.4-11.0 [facility] Blood erythrocytes count (nu mber/volume)Ordered By: Renard Burgos on 07-11-2022 RBC (Bld) [#/Vol] 4.83 10*6/uL 4.6-6.[address] [facility] Blood hemoglobin measurement (mass/volume)Ordered By: Renard Burgos on 07-11-2022 Hemoglobin (Bld) [Mass/Vol] 14.7 g/dL 13.0-16.5 [facility] Blood lymphocytes/100 leukoc ytesOrdered By: Renard Burgos on 07-11-2022 Lymphocytes/100 WBC (Bld) 27.8 % 19-41 [facility] Blood monocytes/100 leukocyt esOrdered By: Renard Burgos on 07-11-2022 Monocytes/100 WBC (Bld) 8.8 % 0-10 [facility] Blood platelet mean volumeOr dered By: Renard Burgos on 07-11-2022 Platelet mean volume (Bld) [Entitic vol] 10.6 fL 6.2-12.0 [facility] Determination of erythrocyte mean corpuscular volume (MCV)Ordered By: Renard Burgos on 07-11-2022 MCV (RBC) [Entitic vol] 90.7 fL 80-94 [facility] Hematocrit Auto (Bld) [Volum e fraction]Ordered By: Renard Burgos on 07-11-2022 Hematocrit (Bld) [Volume fraction] 43.8 % 40-54 [facility] Laboratory - Hematology and Cell countsOrdered By: Renard Burgos on 07-11-2022 Erythrocyte distribution width (RBC) [Entitic vol] 41.2 fL 35.1-43.9 [facility] Erythrocyte distribution width (RBC) [Ratio] 12.7 % 11.6-14.6 [facility] Immature granulocytes/100 WBC (Bld) 0.500 % 0.0-0.9 [facility] Comment on above: IG% - Immature Granu locytes (promyelocytes, myelocytes and metamyelocytes) > 1% indicates that a LEFT SHIFT is Present. MCH (RBC) [Entitic mass] 30.4 pg 27.0-32.0 [facility] Nucleated RBC/100 WBC (Bld) [Ratio] 0 % 0-5 [facility] MCHC Auto (RBC) [Mass/Vol]Or dered By: Renard Burgos on 07-11-2022 MCHC (RBC) [Mass/Vol] 33.6 g/dL 32-36 [facility] Platelets bldOrdered By: [facility] lizy Loretta on 07-11-2022 Platelets (Bld) [#/Vol] 207 10*3/uL 150-450 [facility] Absolute lymphocyte countOrd ered By: Renard Burgos on 07-04-2022 Lymphocytes Auto (Unsp spec) [#/Vol] 1.87 10*3/uL 0.83-4.51 [facility] Basophil percentageOrdered B y: Renard Burgos on 07-04-2022 Basophils/100 WBC (Bld) 0.4 % 0-1 [facility] Eosinophils/100 WBC (Bld) 0.5 % 0-5 [facility] Neutrophils (Bld) [#/Vol] 7.5 10*3/uL 2.0-7.7 [facility] Neutrophils/100 WBC (Bld) 72.8 % 47-70 [facility] WBC (Bld) [#/Vol] 10.3 10*3/uL 4.4-11.[address] [facility] Blood erythrocytes count (nu mber/volume)Ordered By: Renard Burgos on 07-04-2022 RBC (Bld) [#/Vol] 4.45 10*6/uL 4.6-6.[address] [facility] Blood hemoglobin measurement (mass/volume)Ordered By: Renard Burgos on 07-04-2022 Hemoglobin (Bld) [Mass/Vol] 13.5 g/dL 13.0-16.5 [facility] Blood lymphocytes/100 leukoc ytesOrdered By: Renard Burgos on 07-04-2022 Lymphocytes/100 WBC (Bld) 18.1 % 19-41 [facility] Blood monocytes/100 leukocyt esOrdered By: Renard Burgos on 07-04-2022 Monocytes/100 WBC (Bld) 7.7 % 0-10 [facility] Blood platelet mean volumeOr dered By: Renard Burgos on 07-04-2022 Platelet mean volume (Bld) [Entitic vol] 11.3 fL 6.2-12.0 [facility] Determination of erythrocyte mean corpuscular volume (MCV)Ordered By: Renard Burgos on 07-04-2022 MCV (RBC) [Entitic vol] 93.0 fL 80-94 [facility] Hematocrit Auto (Bld) [Volum e fraction]Ordered By: Renard Burgos on 07-04-2022 Hematocrit (Bld) [Volume fraction] 41.4 % 40-54 [facility] Laboratory - Hematology and Cell countsOrdered By: Renard Burgos on 07-04-2022 Erythrocyte distribution width (RBC) [Entitic vol] 43.0 fL 35.1-43.9 [facility] Erythrocyte distribution width (RBC) [Ratio] 12.5 % 11.6-14.6 [facility] Immature granulocytes/100 WBC (Bld) 0.500 % 0.0-0.9 [facility] Comment on above: IG% - Immature Granu locytes (promyelocytes, myelocytes and metamyelocytes) > 1% indicates that a LEFT SHIFT is Present. MCH (RBC) [Entitic mass] 30.3 pg 27.0-32.0 [facility] Nucleated RBC/100 WBC (Bld) [Ratio] 0 % 0-5 [facility] MCHC Auto (RBC) [Mass/Vol]Or dered By: Renard Burgos on 07-04-2022 MCHC (RBC) [Mass/Vol] 32.6 g/dL 32-36 [facility] Platelets bldOrdered By: Lyubov Burgos on 07-04-2022 Platelets (Bld) [#/Vol] 211 10*3/uL 150-450 [facility] Absolute lymphocyte countOrd ered By: Renard Burgos on 06-27-2022 Lymphocytes Auto (Unsp spec) [#/Vol] 1.83 10*3/uL 0.83-4.51 [facility] Basophil percentageOrdered B y: Renard Burgos on 06-27-2022 Basophils/100 WBC (Bld) 0.4 % 0-1 [facility] Eosinophils/100 WBC (Bld) 0.5 % 0-5 [facility] Neutrophils (Bld) [#/Vol] 5.0 10*3/uL 2.0-7.7 [facility] Neutrophils/100 WBC (Bld) 67.6 % 47-70 [facility] WBC (Bld) [#/Vol] 7.4 10*3/uL 4.4-11.0 [facility] Blood erythrocytes count (nu mber/volume)Ordered By: Renard Burgos on 06-27-2022 RBC (Bld) [#/Vol] 4.52 10*6/uL 4.6-6.[address] [facility] Blood hemoglobin measurement (mass/volume)Ordered By: Renard Burgos on 06-27-2022 Hemoglobin (Bld) [Mass/Vol] 13.9 g/dL 13.0-16.5 [facility] Blood lymphocytes/100 leukoc ytesOrdered By: Renard Burgos on 06-27-2022 Lymphocytes/100 WBC (Bld) 24.7 % 19-41 [facility] Blood monocytes/100 leukocyt esOrdered By: Renard Burgos on 06-27-2022 Monocytes/100 WBC (Bld) 6.4 % 0-10 [facility] Blood platelet mean volumeOr dered By: Renard Burgos on 06-27-2022 Platelet mean volume (Bld) [Entitic vol] 10.7 fL 6.2-12.0 [facility] Determination of erythrocyte mean corpuscular volume (MCV)Ordered By: Renard Burgos on 06-27-2022 MCV (RBC) [Entitic vol] 91.2 fL 80-94 [facility] Hematocrit Auto (Bld) [Volum e fraction]Ordered By: Renard Burgos on 06-27-2022 Hematocrit (Bld) [Volume fraction] 41.2 % 40-54 [facility] Laboratory - Hematology and Cell countsOrdered By: Renard Burgos on 06-27-2022 Erythrocyte distribution width (RBC) [Entitic vol] 41.9 fL 35.1-43.9 [facility] Erythrocyte distribution width (RBC) [Ratio] 12.7 % 11.6-14.6 [facility] Immature granulocytes/100 WBC (Bld) 0.400 % 0.0-0.9 [facility] Comment on above: IG% - Immature Granu locytes (promyelocytes, myelocytes and metamyelocytes) > 1% indicates that a LEFT SHIFT is Present. MCH (RBC) [Entitic mass] 30.8 pg 27.0-32.0 [facility] Nucleated RBC/100 WBC (Bld) [Ratio] 0 % 0-5 [facility] MCHC Auto (RBC) [Mass/Vol]Or dered By: Renard Burgos on 06-27-2022 MCHC (RBC) [Mass/Vol] 33.7 g/dL 32-36 [facility] Platelets bldOrdered By: Lyubov Burgos on 06-27-2022 Platelets (Bld) [#/Vol] 200 10*3/uL 150-450 [facility] Absolute lymphocyte countOrd ered By: Renard Burgos on 06-20-2022 Lymphocytes Auto (Unsp spec) [#/Vol] 1.57 10*3/uL 0.83-4.51 [facility] Basophil percentageOrdered B y: Renard Burgos on 06-20-2022 Basophils/100 WBC (Bld) 0.2 % 0-1 [facility] Eosinophils/100 WBC (Bld) 0.2 % 0-5 [facility] Neutrophils (Bld) [#/Vol] 6.5 10*3/uL 2.0-7.7 [facility] Neutrophils/100 WBC (Bld) 74.5 % 47-70 [facility] WBC (Bld) [#/Vol] 8.8 10*3/uL 4.4-11.0 [facility] Blood erythrocytes count (nu mber/volume)Ordered By: Renard Burgos on 06-20-2022 RBC (Bld) [#/Vol] 4.79 10*6/uL 4.6-6.[address] [facility] Blood hemoglobin measurement (mass/volume)Ordered By: Renard Burgos on 06-20-2022 Hemoglobin (Bld) [Mass/Vol] 14.6 g/dL 13.0-16.5 [facility] Blood lymphocytes/100 leukoc ytesOrdered By: Renard Burgos on 06-20-2022 Lymphocytes/100 WBC (Bld) 17.8 % 19-41 [facility] Blood monocytes/100 leukocyt esOrdered By: Renard Burgos on 06-20-2022 Monocytes/100 WBC (Bld) 7.0 % 0-10 [facility] Blood platelet mean volumeOr dered By: Renard Burgos on 06-20-2022 Platelet mean volume (Bld) [Entitic vol] 11.1 fL 6.2-12.0 [facility] Determination of erythrocyte mean corpuscular volume (MCV)Ordered By: Renard Burgos on 06-20-2022 MCV (RBC) [Entitic vol] 92.1 fL 80-94 [facility] Hematocrit Auto (Bld) [Volum e fraction]Ordered By: Renard Burgos on 06-20-2022 Hematocrit (Bld) [Volume fraction] 44.1 % 40-54 [facility] Laboratory - Hematology and Cell countsOrdered By: Renard Burgos on 06-20-2022 Erythrocyte distribution width (RBC) [Entitic vol] 42.4 fL 35.1-43.9 [facility] Erythrocyte distribution width (RBC) [Ratio] 12.6 % 11.6-14.6 [facility] Immature granulocytes/100 WBC (Bld) 0.300 % 0.0-0.9 [facility] Comment on above: IG% - Immature Granu locytes (promyelocytes, myelocytes and metamyelocytes) > 1% indicates that a LEFT SHIFT is Present. MCH (RBC) [Entitic mass] 30.5 pg 27.0-32.0 [facility] Nucleated RBC/100 WBC (Bld) [Ratio] 0 % 0-5 [facility] MCHC Auto (RBC) [Mass/Vol]Or dered By: Renard Burgos on 06-20-2022 MCHC (RBC) [Mass/Vol] 33.1 g/dL 32-36 [facility] Platelets bldOrdered By: Lyubov Burgos on 06-20-2022 Platelets (Bld) [#/Vol] 207 10*3/uL 150-450 [facility] Absolute lymphocyte countOrd ered By: Renard Burgos on 06-13-2022 Lymphocytes Auto (Unsp spec) [#/Vol] 2.28 10*3/uL 0.83-4.51 [facility] Basophil percentageOrdered B y: Renard Burgos on 06-13-2022 Basophils/100 WBC (Bld) 0.5 % 0-1 [facility] Eosinophils/100 WBC (Bld) 0.4 % 0-5 [facility] Neutrophils (Bld) [#/Vol] 6.0 10*3/uL 2.0-7.7 [facility] Neutrophils/100 WBC (Bld) 65.6 % 47-70 [facility] WBC (Bld) [#/Vol] 9.2 10*3/uL 4.4-11.0 [facility] Blood erythrocytes count (nu mber/volume)Ordered By: Renard Burgos on 06-13-2022 RBC (Bld) [#/Vol] 4.55 10*6/uL 4.6-6.[address] [facility] Blood hemoglobin measurement (mass/volume)Ordered By: Renard Burgos on 06-13-2022 Hemoglobin (Bld) [Mass/Vol] 13.7 g/dL 13.0-16.5 [facility] Blood lymphocytes/100 leukoc ytesOrdered By: Renard Burgos on 06-13-2022 Lymphocytes/100 WBC (Bld) 24.9 % 19-41 [facility] Blood monocytes/100 leukocyt esOrdered By: Renard Burgos on 06-13-2022 Monocytes/100 WBC (Bld) 8.2 % 0-10 [facility] Blood platelet mean volumeOr dered By: Renard Burgos on 06-13-2022 Platelet mean volume (Bld) [Entitic vol] 10.9 fL 6.2-12.0 [facility] Determination of erythrocyte mean corpuscular volume (MCV)Ordered By: Renard Burgos on 06-13-2022 MCV (RBC) [Entitic vol] 92.3 fL 80-94 [facility] Hematocrit Auto (Bld) [Volum e fraction]Ordered By: Renard Burgos on 06-13-2022 Hematocrit (Bld) [Volume fraction] 42.0 % 40-54 [facility] Laboratory - Hematology and Cell countsOrdered By: Renard Burgos on 06-13-2022 Erythrocyte distribution width (RBC) [Entitic vol] 43.2 fL 35.1-43.9 [facility] Erythrocyte distribution width (RBC) [Ratio] 12.8 % 11.6-14.6 [facility] Immature granulocytes/100 WBC (Bld) 0.400 % 0.0-0.9 [facility] Comment on above: IG% - Immature Granu locytes (promyelocytes, myelocytes and metamyelocytes) > 1% indicates that a LEFT SHIFT is Present. MCH (RBC) [Entitic mass] 30.1 pg 27.0-32.0 [facility] Nucleated RBC/100 WBC (Bld) [Ratio] 0 % 0-5 [facility] MCHC Auto (RBC) [Mass/Vol]Or dered By: Renard Burgos on 06-13-2022 MCHC (RBC) [Mass/Vol] 32.6 g/dL 32-36 [facility] Platelets bldOrdered By: Lyubov Burgos on 06-13-2022 Platelets (Bld) [#/Vol] 203 10*3/uL 150-450 [facility] Absolute lymphocyte countOrd ered By: Renard Burgos on 06-06-2022 Lymphocytes Auto (Unsp spec) [#/Vol] 2.02 10*3/uL 0.83-4.51 [facility] Basophil percentageOrdered B y: Renard Burgos on 06-06-2022 Basophils/100 WBC (Bld) 0.5 % 0-1 [facility] Eosinophils/100 WBC (Bld) 0.7 % 0-5 [facility] Neutrophils (Bld) [#/Vol] 4.7 10*3/uL 2.0-7.7 [facility] Neutrophils/100 WBC (Bld) 63.3 % 47-70 [facility] WBC (Bld) [#/Vol] 7.4 10*3/uL 4.4-11.0 [facility] Blood erythrocytes count (nu mber/volume)Ordered By: Renard Burgos on 06-06-2022 RBC (Bld) [#/Vol] 4.57 10*6/uL 4.6-6.[address] [facility] Blood hemoglobin measurement (mass/volume)Ordered By: Renard Burgos on 06-06-2022 Hemoglobin (Bld) [Mass/Vol] 14.0 g/dL 13.0-16.5 [facility] Blood lymphocytes/100 leukoc ytesOrdered By: Renard Burgos on 06-06-2022 Lymphocytes/100 WBC (Bld) 27.2 % 19-41 [facility] Blood monocytes/100 leukocyt esOrdered By: Renard Burgos on 06-06-2022 Monocytes/100 WBC (Bld) 7.9 % 0-10 [facility] Blood platelet mean volumeOr dered By: Renard Burgos on 06-06-2022 Platelet mean volume (Bld) [Entitic vol] 10.7 fL 6.2-12.0 [facility] Determination of erythrocyte mean corpuscular volume (MCV)Ordered By: Renard Burgos on 06-06-2022 MCV (RBC) [Entitic vol] 90.2 fL 80-94 [facility] Hematocrit Auto (Bld) [Volum e fraction]Ordered By: Renard Burgos on 06-06-2022 Hematocrit (Bld) [Volume fraction] 41.2 % 40-54 [facility] Laboratory - Hematology and Cell countsOrdered By: Renard Burgos on 06-06-2022 Erythrocyte distribution width (RBC) [Entitic vol] 41.5 fL 35.1-43.9 [facility] Erythrocyte distribution width (RBC) [Ratio] 12.7 % 11.6-14.6 [facility] Immature granulocytes/100 WBC (Bld) 0.400 % 0.0-0.9 [facility] Comment on above: IG% - Immature Granu locytes (promyelocytes, myelocytes and metamyelocytes) > 1% indicates that a LEFT SHIFT is Present. MCH (RBC) [Entitic mass] 30.6 pg 27.0-32.0 [facility] Nucleated RBC/100 WBC (Bld) [Ratio] 0 % 0-5 [facility] MCHC Auto (RBC) [Mass/Vol]Or dered By: Renard Burgos on 06-06-2022 MCHC (RBC) [Mass/Vol] 34.0 g/dL 32-36 [facility] Platelets bldOrdered By: Lyubov Burgos on 06-06-2022 Platelets (Bld) [#/Vol] 197 10*3/uL 150-450 [facility] Absolute lymphocyte countOrd ered By: Renard Burgos on 05-30-2022 Lymphocytes Auto (Unsp spec) [#/Vol] 2.32 10*3/uL 0.83-4.51 [facility] Basophil percentageOrdered B y: Renard Burgos on 05-30-2022 Basophils/100 WBC (Bld) 0.4 % 0-1 [facility] Eosinophils/100 WBC (Bld) 0.5 % 0-5 [facility] Neutrophils (Bld) [#/Vol] 5.2 10*3/uL 2.0-7.7 [facility] Neutrophils/100 WBC (Bld) 62.6 % 47-70 [facility] WBC (Bld) [#/Vol] 8.3 10*3/uL 4.4-11.0 [facility] Blood erythrocytes count (nu mber/volume)Ordered By: Renard Burgos on 05-30-2022 RBC (Bld) [#/Vol] 4.87 10*6/uL 4.6-6.[address] [facility] Blood hemoglobin measurement (mass/volume)Ordered By: Renard Burgos on 05-30-2022 Hemoglobin (Bld) [Mass/Vol] 14.6 g/dL 13.0-16.5 [facility] Blood lymphocytes/100 leukoc ytesOrdered By: Renard Burgos on 05-30-2022 Lymphocytes/100 WBC (Bld) 27.9 % 19-41 [facility] Blood monocytes/100 leukocyt esOrdered By: Renard Burgos on 05-30-2022 Monocytes/100 WBC (Bld) 8.0 % 0-10 [facility] Blood platelet mean volumeOr dered By: Renard Burgos on 05-30-2022 Platelet mean volume (Bld) [Entitic vol] 10.9 fL 6.2-12.0 [facility] Determination of erythrocyte mean corpuscular volume (MCV)Ordered By: Renard Burgos on 05-30-2022 MCV (RBC) [Entitic vol] 91.6 fL 80-94 [facility] Hematocrit Auto (Bld) [Volum e fraction]Ordered By: Renard Burgos on 05-30-2022 Hematocrit (Bld) [Volume fraction] 44.6 % 40-54 [facility] Laboratory - Hematology and Cell countsOrdered By: Renard Burgos on 05-30-2022 Erythrocyte distribution width (RBC) [Entitic vol] 42.4 fL 35.1-43.9 [facility] Erythrocyte distribution width (RBC) [Ratio] 12.6 % 11.6-14.6 [facility] Immature granulocytes/100 WBC (Bld) 0.600 % 0.0-0.9 [facility] Comment on above: IG% - Immature Granu locytes (promyelocytes, myelocytes and metamyelocytes) > 1% indicates that a LEFT SHIFT is Present. MCH (RBC) [Entitic mass] 30.0 pg 27.0-32.0 [facility] Nucleated RBC/100 WBC (Bld) [Ratio] 0 % 0-5 [facility] MCHC Auto (RBC) [Mass/Vol]Or dered By: Renard Burgos on 05-30-2022 MCHC (RBC) [Mass/Vol] 32.7 g/dL 32-36 [facility] Platelets bldOrdered By: Pet lizy Burgos on 05-30-2022 Platelets (Bld) [#/Vol] 213 10*3/uL 150-450 [facility] Absolute lymphocyte countOrd ered By: Renard Burgos on 05-23-2022 Lymphocytes Auto (Unsp spec) [#/Vol] 2.07 10*3/uL 0.83-4.51 [facility] Basophil percentageOrdered B y: Renard Burgos on 05-23-2022 Basophils/100 WBC (Bld) 0.5 % 0-1 [facility] Eosinophils/100 WBC (Bld) 0.4 % 0-5 [facility] Neutrophils (Bld) [#/Vol] 5.7 10*3/uL 2.0-7.7 [facility] Neutrophils/100 WBC (Bld) 66.5 % 47-70 [facility] WBC (Bld) [#/Vol] 8.5 10*3/uL 4.4-11.0 [facility] Blood erythrocytes count (nu mber/volume)Ordered By: Renard Burgos on 05-23-2022 RBC (Bld) [#/Vol] 4.75 10*6/uL 4.6-6.[address] [facility] Blood hemoglobin measurement (mass/volume)Ordered By: Renard Burgos on 05-23-2022 Hemoglobin (Bld) [Mass/Vol] 14.3 g/dL 13.0-16.5 [facility] Blood lymphocytes/100 leukoc ytesOrdered By: Renard Burgos on 05-23-2022 Lymphocytes/100 WBC (Bld) 24.4 % 19-41 [facility] Blood monocytes/100 leukocyt esOrdered By: Renard Burgos on 05-23-2022 Monocytes/100 WBC (Bld) 7.7 % 0-10 [facility] Blood platelet mean volumeOr dered By: Renard Burgos on 05-23-2022 Platelet mean volume (Bld) [Entitic vol] 11.1 fL 6.2-12.0 [facility] Determination of erythrocyte mean corpuscular volume (MCV)Ordered By: Renard Burgos on 05-23-2022 MCV (RBC) [Entitic vol] 90.9 fL 80-94 [facility] Hematocrit Auto (Bld) [Volum e fraction]Ordered By: Renard Burgos on 05-23-2022 Hematocrit (Bld) [Volume fraction] 43.2 % 40-54 [facility] Laboratory - Hematology and Cell countsOrdered By: Renard Burgos on 05-23-2022 Erythrocyte distribution width (RBC) [Entitic vol] 41.7 fL 35.1-43.9 [facility] Erythrocyte distribution width (RBC) [Ratio] 12.5 % 11.6-14.6 [facility] Immature granulocytes/100 WBC (Bld) 0.500 % 0.0-0.9 [facility] Comment on above: IG% - Immature Granu locytes (promyelocytes, myelocytes and metamyelocytes) > 1% indicates that a LEFT SHIFT is Present. MCH (RBC) [Entitic mass] 30.1 pg 27.0-32.0 [facility] Nucleated RBC/100 WBC (Bld) [Ratio] 0 % 0-5 [facility] MCHC Auto (RBC) [Mass/Vol]Or dered By: Renard Burgos on 05-23-2022 MCHC (RBC) [Mass/Vol] 33.1 g/dL 32-36 [facility] [facility] Platelets bldOrdered By: Lyubov Burgos on 05-23-2022 Platelets (Bld) [#/Vol] 213 10*3/uL 150-450 [facility] No Panel Informationon 05-20 Dejah Hazel DO 05/20/2022 7:32 PM Feeding Tube Replacement Performed by: Dejah Hazel DO Authorized by: Abelardo Rios DO Consent: Consent obtained: Verbal Consent given by: Patient [place] protocol: Patient identity confirmed: Verbally with patient Pre-procedure details: Old tube size: 18 Fr Sedation: Sedation type: None Anesthesia: Anesthesia method: None Procedure details: Patient position: Supine Procedure type: Replacement Tube type: Gastrostomy Tube size: 18 Fr Bulb inflation volume: 15 ml Bulb inflation fluid: Sterile water Post-procedure details: Placement/position confirmation: X-ray Placement difficulty: None Bleeding: None Procedure completion: Tolerated well, no immediate complications [id number] [employer] XR Abdomen Single viewon G-tube position is within the stomach. No evidence of contrast extravasation. Report Dictated on Electronically Signed By: Jason Tran Electronically Signed Date/Time: 05/20/2022 7:38 PM EST [employer] Patient Name: KATHYA HOOPER Exam Date/Time: 05/20/2022 19:18 Procedure: XR ABDOMEN 1 VIEW Ordering Provider: RIOS TYLER Reason For Exam: SUPINE ABDOMEN (KUB) CLINICAL INDICATION: confirm placement of G tube A supine plain film of the abdomen was obtained. Repeat abdominal radiographs following hand injection of enteric contrast via the patient's enteric tube. (Gastrografin 30 mL). COMPARISON: None FINDINGS: On the billet bed operator image, no dilated bowel loops are identified. Feeding tube overlies the epigastric region of the abdomen. On the postcontrast images, there is a small amount of enteric contrast in the stomach and contrast is present throughout the proximal duodenum. No extravasated contrast is evident. [employer] Jason Tran M D - 05/20/2022 Patient Name: KATHYA HOOPER Exam Date/Time: 05/20/2022 19:18 Procedure: XR ABDOMEN 1 VIEW Ordering Provider: RIOS TYLER Reason For Exam: SUPINE ABDOMEN (KUB) CLINICAL INDICATION: confirm placement of G tube A supine plain film of the abdomen was obtained. Repeat abdominal radiographs following hand injection of enteric contrast via the patient's enteric tube. (Gastrografin 30 mL). COMPARISON: None FINDINGS: On the billet bed operator image, no dilated bowel loops are identified. Feeding tube overlies the epigastric region of the abdomen. On the postcontrast images, there is a small amount of enteric contrast in the stomach and contrast is present throughout the proximal duodenum. No extravasated contrast is evident. IMPRESSION: G-tube position is within the stomach. No evidence of contrast extravasation. Report Dictated on Electronically Signed By: Jason Tran Electronically Signed Date/Time: 05/20/2022 7:38 PM EST [facility] [employer] Radiology Study observation (narrative) [facility] XR Abdomen Single viewOrdere d By: Jason Tran on 05-20-2022 [employer] Work Phone: Absolute lymphocyte countOrd ered By: Renard Burgos on 05-16-2022 Lymphocytes Auto (Unsp spec) [#/Vol] 2.06 10*3/uL 0.83-4.51 [facility] Basophil percentageOrdered B y: Renard Burgos on 05-16-2022 Basophils/100 WBC (Bld) 0.6 % 0-1 [facility] Eosinophils/100 WBC (Bld) 0.6 % 0-5 [facility] Neutrophils (Bld) [#/Vol] 4.4 10*3/uL 2.0-7.7 [facility] Neutrophils/100 WBC (Bld) 61.2 % 47-70 [facility] WBC (Bld) [#/Vol] 7.1 10*3/uL 4.4-11.[facility] erythrocytes count (nu mber/volume)Ordered By: Renard Burgos on 05-16-2022 RBC (Bld) [#/Vol] 4.58 10*6/uL 4.6-6.2 [facility] Blood hemoglobin measurement (mass/volume)Ordered By: Renard Burgos on 05-16-2022 Hemoglobin (Bld) [Mass/Vol] 13.9 g/dL 13.0-16.5 [facility] Blood lymphocytes/100 leukoc ytesOrdered By: Renard Burgos on 05-16-2022 Lymphocytes/100 WBC (Bld) 29.0 % 19-41 [facility] Blood monocytes/100 leukocyt esOrdered By: Renard Burgos on 05-16-2022 Monocytes/100 WBC (Bld) 8.2 % 0-10 [facility] Blood platelet mean volumeOr dered By: Renard Burgos on 05-16-2022 Platelet mean volume (Bld) [Entitic vol] 11.1 fL 6.2-12.0 [facility] Determination of erythrocyte mean corpuscular volume (MCV)Ordered By: Renard Burgos on 05-16-2022 MCV (RBC) [Entitic vol] 91.5 fL 80-94 [facility] Hematocrit Auto (Bld) [Volum e fraction]Ordered By: Renard Burgos on 05-16-2022 Hematocrit (Bld) [Volume fraction] 41.9 % 40-54 [facility] Laboratory - Hematology and Cell countsOrdered By: Renard Burgos on 05-16-2022 Erythrocyte distribution width (RBC) [Entitic vol] 41.3 fL 35.1-43.9 [facility] Erythrocyte distribution width (RBC) [Ratio] 12.5 % 11.6-14.6 [facility] Immature granulocytes/100 WBC (Bld) 0.400 % 0.0-0.9 [facility] Comment on above: IG% - Immature Granu locytes (promyelocytes, myelocytes and metamyelocytes) > 1% indicates that a LEFT SHIFT is Present. MCH (RBC) [Entitic mass] 30.3 pg 27.0-32.0 [facility] Nucleated RBC/100 WBC (Bld) [Ratio] 0 % 0-5 [facility] MCHC Auto (RBC) [Mass/Vol]Or dered By: Renard Burgos on 05-16-2022 MCHC (RBC) [Mass/Vol] 33.2 g/dL 32-36 [facility] Platelets bldOrdered By: Lyubov Burgso on 05-16-2022 Platelets (Bld) [#/Vol] 205 10*3/uL 150-450 [facility] Absolute lymphocyte countOrd ered By: Renard Burgos on 05-09-2022 Lymphocytes Auto (Unsp spec) [#/Vol] 1.92 10*3/uL 0.83-4.51 [facility] Basophil percentageOrdered B y: Renard Burgos on 05-09-2022 Basophils/100 WBC (Bld) 0.7 % 0-1 [facility] Eosinophils/100 WBC (Bld) 0.7 % 0-5 [facility] Neutrophils (Bld) [#/Vol] 4.3 10*3/uL 2.0-7.7 [facility] Neutrophils/100 WBC (Bld) 60.9 % 47-70 [facility] WBC (Bld) [#/Vol] 7.1 10*3/uL 4.4-11.0 [facility] Blood erythrocytes count (nu mber/volume)Ordered By: Renard Burgos on 05-09-2022 RBC (Bld) [#/Vol] 4.67 10*6/uL 4.6-6.[address] [facility] Blood hemoglobin measurement (mass/volume)Ordered By: Renard Burgos on 05-09-2022 Hemoglobin (Bld) [Mass/Vol] 14.1 g/dL 13.0-16.5 [facility] Blood lymphocytes/100 leukoc ytesOrdered By: Renard Burgos on 05-09-2022 Lymphocytes/100 WBC (Bld) 27.2 % 19-41 [facility] Blood monocytes/100 leukocyt esOrdered By: Renard Burgos on 05-09-2022 Monocytes/100 WBC (Bld) 10.2 % 0-10 [facility] Blood platelet mean volumeOr dered By: Renard Burgos on 05-09-2022 Platelet mean volume (Bld) [Entitic vol] 11.5 fL 6.2-12.0 [facility] Determination of erythrocyte mean corpuscular volume (MCV)Ordered By: Renard Burgos on 05-09-2022 MCV (RBC) [Entitic vol] 91.0 fL 80-94 [facility] Hematocrit Auto (Bld) [Volum e fraction]Ordered By: Renard Burgos on 05-09-2022 Hematocrit (Bld) [Volume fraction] 42.5 % 40-54 [facility] Laboratory - Hematology and Cell countsOrdered By: Renard Burgos on 05-09-2022 Erythrocyte distribution width (RBC) [Entitic vol] 41.4 fL 35.1-43.9 [facility] Erythrocyte distribution width (RBC) [Ratio] 12.7 % 11.6-14.6 [facility] Immature granulocytes/100 WBC (Bld) 0.300 % 0.0-0.9 [facility] Comment on above: IG% - Immature Granu locytes (promyelocytes, myelocytes and metamyelocytes) > 1% indicates that a LEFT SHIFT is Present. MCH (RBC) [Entitic mass] 30.2 pg 27.0-32.0 [facility] Nucleated RBC/100 WBC (Bld) [Ratio] 0.4 % 0-5 [facility] MCHC Auto (RBC) [Mass/Vol]Or dered By: Renard Burgos on 05-09-2022 MCHC (RBC) [Mass/Vol] 33.2 g/dL 32-36 [facility] Platelets bldOrdered By: Lyubov Burgos on 05-09-2022 Platelets (Bld) [#/Vol] 202 10*3/uL 150-450 [facility] Absolute lymphocyte countOrd ered By: Renard Burgos on 05-03-2022 Lymphocytes Auto (Unsp spec) [#/Vol] 1.86 10*3/uL 0.83-4.51 [facility] Basophil percentageOrdered B y: Renard Burgos on 05-03-2022 Basophils/100 WBC (Bld) 0.3 % 0-1 [facility] Eosinophils/100 WBC (Bld) 0.3 % 0-5 [facility] Neutrophils (Bld) [#/Vol] 6.4 10*3/uL 2.0-7.7 [facility] Neutrophils/100 WBC (Bld) 71.9 % 47-70 [facility] WBC (Bld) [#/Vol] 8.9 10*3/uL 4.4-11.0 [facility] Blood erythrocytes count (nu mber/volume)Ordered By: Renard Burgos on 05-03-2022 RBC (Bld) [#/Vol] 4.65 10*6/uL 4.6-6.[address] [facility] Blood hemoglobin measurement (mass/volume)Ordered By: Renard Burgos on 05-03-2022 Hemoglobin (Bld) [Mass/Vol] 14.5 g/dL 13.0-16.5 [facility] Blood lymphocytes/100 leukoc ytesOrdered By: Renard Burgos on 05-03-2022 Lymphocytes/100 WBC (Bld) 20.9 % 19-41 [facility] Blood monocytes/100 leukocyt esOrdered By: Renard Burgos on 05-03-2022 Monocytes/100 WBC (Bld) 6.2 % 0-10 [facility] Blood platelet mean volumeOr dered By: Renard Burgos on 05-03-2022 Platelet mean volume (Bld) [Entitic vol] 11.1 fL 6.2-12.0 [facility] Determination of erythrocyte mean corpuscular volume (MCV)Ordered By: Renard Burgos on 05-03-2022 MCV (RBC) [Entitic vol] 90.1 fL 80-94 [facility] Hematocrit Auto (Bld) [Volum e fraction]Ordered By: Renard Burgos on 05-03-2022 Hematocrit (Bld) [Volume fraction] 41.9 % 40-54 [facility] Laboratory - Hematology and Cell countsOrdered By: Renard Burgos on 05-03-2022 Erythrocyte distribution width (RBC) [Entitic vol] 39.7 fL 35.1-43.9 [facility] Erythrocyte distribution width (RBC) [Ratio] 12.2 % 11.6-14.6 [facility] Immature granulocytes/100 WBC (Bld) 0.400 % 0.0-0.9 [facility] Comment on above: IG% - Immature Granu locytes (promyelocytes, myelocytes and metamyelocytes) > 1% indicates that a LEFT SHIFT is Present. MCH (RBC) [Entitic mass] 31.2 pg 27.0-32.0 [facility] Nucleated RBC/100 WBC (Bld) [Ratio] 0 % 0-5 [facility] MCHC Auto (RBC) [Mass/Vol]Or dered By: Renard Burgos on 05-03-2022 MCHC (RBC) [Mass/Vol] 34.6 g/dL 32-36 [facility] Platelets bldOrdered By: Lyubov Burgos on 05-03-2022 Platelets (Bld) [#/Vol] 203 10*3/uL 150-450 [facility] Absolute lymphocyte countOrd ered By: Renard Burgos on 04-26-2022 Lymphocytes Auto (Unsp spec) [#/Vol] 2.79 10*3/uL 0.83-4.51 [facility] Basophil percentageOrdered B y: Renard Burgos on 04-26-2022 Basophils/100 WBC (Bld) 0.4 % 0-1 [facility] Eosinophils/100 WBC (Bld) 0.4 % 0-5 [facility] Neutrophils (Bld) [#/Vol] 5.9 10*3/uL 2.0-7.7 [facility] Neutrophils/100 WBC (Bld) 60.9 % 47-70 [facility] WBC (Bld) [#/Vol] 9.7 10*3/uL 4.4-11.0 [facility] Blood erythrocytes count (nu mber/volume)Ordered By: Renard Burgos on 04-26-2022 RBC (Bld) [#/Vol] 4.92 10*6/uL 4.6-6.[address] [facility] Blood hemoglobin measurement (mass/volume)Ordered By: Renard Burgos on 04-26-2022 Hemoglobin (Bld) [Mass/Vol] 15.2 g/dL 13.0-16.5 [facility] Blood lymphocytes/100 leukoc ytesOrdered By: Renard Burgos on 04-26-2022 Lymphocytes/100 WBC (Bld) 28.9 % 19-41 [facility] Blood monocytes/100 leukocyt esOrdered By: Renard Burgos on 04-26-2022 Monocytes/100 WBC (Bld) 9.0 % 0-10 [facility] Blood platelet mean volumeOr dered By: Renard Burgos on 04-26-2022 Platelet mean volume (Bld) [Entitic vol] 11.0 fL 6.2-12.0 [facility] Determination of erythrocyte mean corpuscular volume (MCV)Ordered By: Renard Burgos on 04-26-2022 MCV (RBC) [Entitic vol] 92.3 fL 80-94 [facility] Hematocrit Auto (Bld) [Volum e fraction]Ordered By: Renard Burgos on 04-26-2022 Hematocrit (Bld) [Volume fraction] 45.4 % 40-54 [facility] Laboratory - Hematology and Cell countsOrdered By: Renard Burgos on 04-26-2022 Erythrocyte distribution width (RBC) [Entitic vol] 42.1 fL 35.1-43.9 [facility] Erythrocyte distribution width (RBC) [Ratio] 12.5 % 11.6-14.6 [facility] Immature granulocytes/100 WBC (Bld) 0.400 % 0.0-0.9 [facility] Comment on above: IG% - Immature Granu locytes (promyelocytes, myelocytes and metamyelocytes) > 1% indicates that a LEFT SHIFT is Present. MCH (RBC) [Entitic mass] 30.9 pg 27.0-32.0 [facility] Nucleated RBC/100 WBC (Bld) [Ratio] 0 % 0-5 [facility] MCHC Auto (RBC) [Mass/Vol]Or dered By: Renard Burgos on 04-26-2022 MCHC (RBC) [Mass/Vol] 33.5 g/dL 32-36 [facility] Platelets bldOrdered By: Lyubov Burgos on 04-26-2022 Platelets (Bld) [#/Vol] 178 10*3/uL 150-450 [facility] Absolute lymphocyte countOrd ered By: Renard Burgos on 04-18-2022 Lymphocytes Auto (Unsp spec) [#/Vol] 2.03 10*3/uL 0.83-4.51 [facility] Basophil percentageOrdered B y: Renard Burgos on 04-18-2022 Basophils/100 WBC (Bld) 0.6 % 0-1 [facility] Eosinophils/100 WBC (Bld) 0.6 % 0-5 [facility] Neutrophils (Bld) [#/Vol] 4.5 10*3/uL 2.0-7.7 [facility] Neutrophils/100 WBC (Bld) 62.0 % 47-70 [facility] WBC (Bld) [#/Vol] 7.2 10*3/uL 4.4-11.0 [facility] Blood erythrocytes count (nu mber/volume)Ordered By: Renard Burgos on 04-18-2022 RBC (Bld) [#/Vol] 4.67 10*6/uL 4.6-6.[address] [facility] Blood hemoglobin measurement (mass/volume)Ordered By: Renard Burgos on 04-18-2022 Hemoglobin (Bld) [Mass/Vol] 14.5 g/dL 13.0-16.5 [facility] Blood lymphocytes/100 leukoc ytesOrdered By: Renard Burgos on 04-18-2022 Lymphocytes/100 WBC (Bld) 28.2 % 19-41 [facility] Blood monocytes/100 leukocyt esOrdered By: Renard Burgos on 04-18-2022 Monocytes/100 WBC (Bld) 8.2 % 0-10 [facility] Blood platelet mean volumeOr dered By: Renard Burgos on 04-18-2022 Platelet mean volume (Bld) [Entitic vol] 11.2 fL 6.2-12.0 [facility] Determination of erythrocyte mean corpuscular volume (MCV)Ordered By: Renard Burgos on 04-18-2022 MCV (RBC) [Entitic vol] 90.8 fL 80-94 [facility] Hematocrit Auto (Bld) [Volum e fraction]Ordered By: Renard Burgos on 04-18-2022 Hematocrit (Bld) [Volume fraction] 42.4 % 40-54 [facility] Laboratory - Hematology and Cell countsOrdered By: Renard Burgos on 04-18-2022 Erythrocyte distribution width (RBC) [Entitic vol] 41.1 fL 35.1-43.9 [facility] Erythrocyte distribution width (RBC) [Ratio] 12.5 % 11.6-14.6 [facility] Immature granulocytes/100 WBC (Bld) 0.400 % 0.0-0.9 [facility] Comment on above: IG% - Immature Granu locytes (promyelocytes, myelocytes and metamyelocytes) > 1% indicates that a LEFT SHIFT is Present. MCH (RBC) [Entitic mass] 31.0 pg 27.0-32.0 [facility] Nucleated RBC/100 WBC (Bld) [Ratio] 0 % 0-5 [facility] MCHC Auto (RBC) [Mass/Vol]Or dered By: Renard Burgos on 04-18-2022 MCHC (RBC) [Mass/Vol] 34.2 g/dL 32-36 [facility] Platelets bldOrdered By: Lyubov Burgos on 04-18-2022 Platelets (Bld) [#/Vol] 196 10*3/uL 150-450 [facility] Basophil percentageOrdered B y: Renard Burgos on 04-14-2022 Bilirubin [Mass/Vol] 0.40 mg/dL 0.20-1.00 [facility] Comment on above: For patients on eltr ombopag therapy, use of Dimension [place] TBIL is not recommended. Protein [Mass/Vol] 6.3 g/dL 6.4-8.2 [facility] Direct bilirubinOrdered By: Renard Burgos on 04-14-2022 Bilirubin.direct [Mass/Vol] 0.12 mg/dL 0.00-0.30 [facility] Laboratory - Chemistry and C hemistry - challengeOrdered By: Renard Burgos on 04-14-2022 ALP [Catalytic activity/Vol] 117 U/L 45-117 [facility] ALT [Catalytic activity/Vol] 26 U/L 16-61 [facility] Globulin (S) [Mass/Vol] 3.2 g/dL 2.2-4.2 [facility] Serum or plasma albumin gordy urement (mass/volume)Ordered By: Renard Burgos on 04-14-2022 Albumin [Mass/Vol] 3.1 g/dL 3.2-5.0 [facility] Thin prep Papanicolaou smear with manual screeningOrdered By: Renard Burgos on 04-14-2022 Thin prep Papanicolaou smear with manual screening 12 U/L 15-37 [facility] Absolute lymphocyte countOrd ered By: Renard Burgos on 04-11-2022 Lymphocytes Auto (Unsp spec) [#/Vol] 2.16 10*3/uL 0.83-4.51 [facility] Basophil percentageOrdered B y: Renard Burgos on 04-11-2022 Basophils/100 WBC (Bld) 0.4 % 0-1 [facility] Eosinophils/100 WBC (Bld) 0.4 % 0-5 [facility] Neutrophils (Bld) [#/Vol] 4.2 10*3/uL 2.0-7.7 [facility] Neutrophils/100 WBC (Bld) 61.1 % 47-70 [facility] WBC (Bld) [#/Vol] 6.9 10*3/uL 4.4-11.0 [facility] Blood erythrocytes count (nu mber/volume)Ordered By: Renard Burgos on 04-11-2022 RBC (Bld) [#/Vol] 4.58 10*6/uL 4.6-6.[address] [facility] Blood hemoglobin measurement (mass/volume)Ordered By: Renard Burgos on 04-11-2022 Hemoglobin (Bld) [Mass/Vol] 13.9 g/dL 13.0-16.5 [facility] Blood lymphocytes/100 leukoc ytesOrdered By: Renard Burgos on 04-11-2022 Lymphocytes/100 WBC (Bld) 31.2 % 19-41 [facility] Blood monocytes/100 leukocyt esOrdered By: Renard Burgos on 04-11-2022 Monocytes/100 WBC (Bld) 6.5 % 0-10 [facility] Blood platelet mean volumeOr dered By: Renard Burgos on 04-11-2022 Platelet mean volume (Bld) [Entitic vol] 11.4 fL 6.2-12.0 [facility] Determination of erythrocyte mean corpuscular volume (MCV)Ordered By: Renard Burgos on 04-11-2022 MCV (RBC) [Entitic vol] 91.9 fL 80-94 [facility] Hematocrit Auto (Bld) [Volum e fraction]Ordered By: Renard Burgos on 04-11-2022 Hematocrit (Bld) [Volume fraction] 42.1 % 40-54 [facility] Laboratory - Hematology and Cell countsOrdered By: Renard Burgos on 04-11-2022 Erythrocyte distribution width (RBC) [Entitic vol] 41.5 fL 35.1-43.9 [facility] Erythrocyte distribution width (RBC) [Ratio] 12.3 % 11.6-14.6 [facility] Immature granulocytes/100 WBC (Bld) 0.400 % 0.0-0.9 [facility] Comment on above: IG% - Immature Granu locytes (promyelocytes, myelocytes and metamyelocytes) > 1% indicates that a LEFT SHIFT is Present. MCH (RBC) [Entitic mass] 30.3 pg 27.0-32.0 [facility] Nucleated RBC/100 WBC (Bld) [Ratio] 0 % 0-5 [facility] MCHC Auto (RBC) [Mass/Vol]Or dered By: Renard Burgos on 04-11-2022 MCHC (RBC) [Mass/Vol] 33.0 g/dL 32-36 [facility] Platelets bldOrdered By: Lyubov Burgos on 04-11-2022 Platelets (Bld) [#/Vol] 191 10*3/uL 150-450 [facility] Absolute lymphocyte countOrd ered By: Renard Burgos on 04-04-2022 Lymphocytes Auto (Unsp spec) [#/Vol] 1.99 10*3/uL 0.83-4.51 [facility] Basophil percentageOrdered B y: Renard Burgos on 04-04-2022 Basophils/100 WBC (Bld) 0.4 % 0-1 [facility] Cholesterol [Mass/Vol] 158 mg/dL <200 [facility] Comment on above: <200 mg/dL Desirable 200-240 mg/dL Borderline >240 mg/dL High Risk Eosinophils/100 WBC (Bld) 0.4 % 0-5 [facility] Neutrophils (Bld) [#/Vol] 4.9 10*3/uL 2.0-7.7 [facility] Neutrophils/100 WBC (Bld) 64.2 % 47-70 [facility] Triglyceride [Mass/Vol] 259 mg/dL <199 [facility] Comment on above: The drugs N-Acetylcy steine and Metamizole may falsely depress this assay.Serum Triglycerides Reference Interval Normal <150 mg/dL Borderline high 150 - 199 mg/dL High 200 - 499 mg/dL Very High > or = 500 mg/dL WBC (Bld) [#/Vol] 7.7 10*3/uL 4.4-11.0 [facility] Blood erythrocytes count (nu mber/volume)Ordered By: Renard Burgos on 04-04-2022 RBC (Bld) [#/Vol] 4.63 10*6/uL 4.6-6.[address] [facility] Blood hemoglobin measurement (mass/volume)Ordered By: Renard Burgos on 04-04-2022 Hemoglobin (Bld) [Mass/Vol] 14.1 g/dL 13.0-16.5 [facility] Blood lymphocytes/100 leukoc ytesOrdered By: Renard Burgos on 04-04-2022 Lymphocytes/100 WBC (Bld) 25.9 % 19-41 [facility] Blood monocytes/100 leukocyt esOrdered By: Renard Burgos on 04-04-2022 Monocytes/100 WBC (Bld) 8.6 % 0-10 [facility] Blood platelet mean volumeOr dered By: Renard Burgos on 04-04-2022 Platelet mean volume (Bld) [Entitic vol] 11.3 fL 6.2-12.0 [facility] Determination of erythrocyte mean corpuscular volume (MCV)Ordered By: Renard Burgos on 04-04-2022 MCV (RBC) [Entitic vol] 90.7 fL 80-94 [facility] Hematocrit Auto (Bld) [Volum e fraction]Ordered By: Renard Burgos on 04-04-2022 Hematocrit (Bld) [Volume fraction] 42.0 % 40-54 [facility] Laboratory - Hematology and Cell countsOrdered By: Renard Burgos on 04-04-2022 Erythrocyte distribution width (RBC) [Entitic vol] 41.3 fL 35.1-43.9 [facility] Erythrocyte distribution width (RBC) [Ratio] 12.4 % 11.6-14.6 [facility] Immature granulocytes/100 WBC (Bld) 0.500 % 0.0-0.9 [facility] Comment on above: IG% - Immature Granu locytes (promyelocytes, myelocytes and metamyelocytes) > 1% indicates that a LEFT SHIFT is Present. MCH (RBC) [Entitic mass] 30.5 pg 27.0-32.0 [facility] Nucleated RBC/100 WBC (Bld) [Ratio] 0 % 0-5 [facility] MCHC Auto (RBC) [Mass/Vol]Or dered By: Renard Burgos on 04-04-2022 MCHC (RBC) [Mass/Vol] 33.6 g/dL 32-36 [facility] Platelets bldOrdered By: Lyubov Burgos on 04-04-2022 Platelets (Bld) [#/Vol] 174 10*3/uL 150-450 [facility] Serum or plasma cholesterol in HDL measurement (mass/volume)Ordered By: Renard Burgos on 04-04-2022 Cholesterol in HDL [Mass/Vol] 26 mg/dL >40 [facility] Comment on above: The drugs N-Acetylcy steine and Metamizole may falsely depress this assay. Reference Range HDL <40 mg/dL Low HDL Cholesterol HDL >or= 60 mg/dL High HDL Cholesterol Serum or plasma cholesterol in VLDL measurement (mass/volume)Ordered By: Renard Burgos on 04-04-2022 Cholesterol in VLDL [Mass/Vol] 52 mg/dL 5-40 [facility] Serum or plasma low density lipoprotein (LDL) cholesterol measurement (mass/volume)Ordered By: Renard Burgos on 04-04-2022 Cholesterol in LDL [Mass/Vol] 80 mg/dL 0-130 [facility] Absolute lymphocyte countOrd ered By: Renard Burgos on 03-28-2022 Lymphocytes Auto (Unsp spec) [#/Vol] 2.25 10*3/uL 0.83-4.51 [facility] Basophil percentageOrdered B y: Renard Burgos on 03-28-2022 Basophils/100 WBC (Bld) 0.6 % 0-1 [facility] Eosinophils/100 WBC (Bld) 0.5 % 0-5 [facility] Neutrophils (Bld) [#/Vol] 4.8 10*3/uL 2.0-7.7 [facility] Neutrophils/100 WBC (Bld) 60.5 % 47-70 [facility] WBC (Bld) [#/Vol] 8.0 10*3/uL 4.4-11.0 [facility] Blood erythrocytes count (nu mber/volume)Ordered By: Renard Burgos on 03-28-2022 RBC (Bld) [#/Vol] 4.69 10*6/uL 4.6-6.[address] [facility] Blood hemoglobin measurement (mass/volume)Ordered By: Renard Burgos on 03-28-2022 Hemoglobin (Bld) [Mass/Vol] 14.4 g/dL 13.0-16.5 [facility] Blood lymphocytes/100 leukoc ytesOrdered By: Renard Burgos on 03-28-2022 Lymphocytes/100 WBC (Bld) 28.1 % 19-41 [facility] Blood monocytes/100 leukocyt esOrdered By: Renard Burgos on 03-28-2022 Monocytes/100 WBC (Bld) 9.8 % 0-10 [facility] Blood platelet mean volumeOr dered By: Renard Burgos on 03-28-2022 Platelet mean volume (Bld) [Entitic vol] 10.8 fL 6.2-12.0 [facility] Determination of erythrocyte mean corpuscular volume (MCV)Ordered By: Renard Burgos on 03-28-2022 MCV (RBC) [Entitic vol] 92.1 fL 80-94 [facility] Hematocrit Auto (Bld) [Volum e fraction]Ordered By: Renard Burgos on 03-28-2022 Hematocrit (Bld) [Volume fraction] 43.2 % 40-54 [facility] Laboratory - Hematology and Cell countsOrdered By: Renard Burgos on 03-28-2022 Erythrocyte distribution width (RBC) [Entitic vol] 42.0 fL 35.1-43.9 [facility] Erythrocyte distribution width (RBC) [Ratio] 12.5 % 11.6-14.6 [facility] Immature granulocytes/100 WBC (Bld) 0.500 % 0.0-0.9 [facility] Comment on above: IG% - Immature Granu locytes (promyelocytes, myelocytes and metamyelocytes) > 1% indicates that a LEFT SHIFT is Present. MCH (RBC) [Entitic mass] 30.7 pg 27.0-32.0 [facility] Nucleated RBC/100 WBC (Bld) [Ratio] 0 % 0-5 [facility] MCHC Auto (RBC) [Mass/Vol]Or dered By: Renard Burgos on 03-28-2022 MCHC (RBC) [Mass/Vol] 33.3 g/dL 32-36 [facility] Platelets bldOrdered By: Lyubov Burgos on 03-28-2022 Platelets (Bld) [#/Vol] 207 10*3/uL 150-450 [facility] Absolute lymphocyte countOrd ered By: Renard Burgos on 03-21-2022 Lymphocytes Auto (Unsp spec) [#/Vol] 1.98 10*3/uL 0.83-4.51 [facility] Basophil percentageOrdered B y: Renard Burgos on 03-21-2022 Basophils/100 WBC (Bld) 0.5 % 0-1 [facility] Eosinophils/100 WBC (Bld) 0.5 % 0-5 [facility] Neutrophils (Bld) [#/Vol] 4.9 10*3/uL 2.0-7.7 [facility] Neutrophils/100 WBC (Bld) 63.6 % 47-70 [facility] WBC (Bld) [#/Vol] 7.7 10*3/uL 4.4-11.0 [facility] Blood erythrocytes count (nu mber/volume)Ordered By: Renard Burgos on 03-21-2022 RBC (Bld) [#/Vol] 4.82 10*6/uL 4.6-6.[address] [facility] Blood hemoglobin measurement (mass/volume)Ordered By: Renard Burgos on 03-21-2022 Hemoglobin (Bld) [Mass/Vol] 14.9 g/dL 13.0-16.5 [facility] Blood lymphocytes/100 leukoc ytesOrdered By: Renard Burgos on 03-21-2022 Lymphocytes/100 WBC (Bld) 25.7 % 19-41 [facility] Blood monocytes/100 leukocyt esOrdered By: Renard Burgos on 03-21-2022 Monocytes/100 WBC (Bld) 9.3 % 0-10 [facility] Blood platelet mean volumeOr dered By: Renard Burgos on 03-21-2022 Platelet mean volume (Bld) [Entitic vol] 10.8 fL 6.2-12.0 [facility] Determination of erythrocyte mean corpuscular volume (MCV)Ordered By: Renard Burgos on 03-21-2022 MCV (RBC) [Entitic vol] 90.7 fL 80-94 [facility] Hematocrit Auto (Bld) [Volum e fraction]Ordered By: Renard Burgos on 03-21-2022 Hematocrit (Bld) [Volume fraction] 43.7 % 40-54 [facility] Laboratory - Hematology and Cell countsOrdered By: Renard Burgos on 03-21-2022 Erythrocyte distribution width (RBC) [Entitic vol] 40.8 fL 35.1-43.9 [facility] Erythrocyte distribution width (RBC) [Ratio] 12.4 % 11.6-14.6 [facility] Immature granulocytes/100 WBC (Bld) 0.400 % 0.0-0.9 [facility] Comment on above: IG% - Immature Granu locytes (promyelocytes, myelocytes and metamyelocytes) > 1% indicates that a LEFT SHIFT is Present. MCH (RBC) [Entitic mass] 30.9 pg 27.0-32.0 [facility] Nucleated RBC/100 WBC (Bld) [Ratio] 0 % 0-5 [facility] MCHC Auto (RBC) [Mass/Vol]Or dered By: Renard Burgos on 03-21-2022 MCHC (RBC) [Mass/Vol] 34.1 g/dL 32-36 [facility] Platelets bldOrdered By: Lyubov Burgos on 03-21-2022 Platelets (Bld) [#/Vol] 186 10*3/uL 150-450 [facility] Absolute lymphocyte countOrd ered By: Renard Burgos on 03-14-2022 Lymphocytes Auto (Unsp spec) [#/Vol] 2.18 10*3/uL 0.83-4.51 [facility] Basophil percentageOrdered B y: Renard Burgos on 03-14-2022 Basophils/100 WBC (Bld) 0.4 % 0-1 [facility] Eosinophils/100 WBC (Bld) 0.6 % 0-5 [facility] Neutrophils (Bld) [#/Vol] 4.3 10*3/uL 2.0-7.7 [facility] Neutrophils/100 WBC (Bld) 58.8 % 47-70 [facility] WBC (Bld) [#/Vol] 7.3 10*3/uL 4.4-11.0 [facility] Blood erythrocytes count (nu mber/volume)Ordered By: Renard Burgos on 03-14-2022 RBC (Bld) [#/Vol] 4.80 10*6/uL 4.6-6.[address] [facility] Blood hemoglobin measurement (mass/volume)Ordered By: Renard Burgos on 03-14-2022 Hemoglobin (Bld) [Mass/Vol] 14.5 g/dL 13.0-16.5 [facility] Blood lymphocytes/100 leukoc ytesOrdered By: Renard Burgos on 03-14-2022 Lymphocytes/100 WBC (Bld) 30.1 % 19-41 [facility] Blood monocytes/100 leukocyt esOrdered By: Renard Burgos on 03-14-2022 Monocytes/100 WBC (Bld) 9.5 % 0-10 [facility] Blood platelet mean volumeOr dered By: Renard Burgos on 03-14-2022 Platelet mean volume (Bld) [Entitic vol] 11.0 fL 6.2-12.0 [facility] Determination of erythrocyte mean corpuscular volume (MCV)Ordered By: Renard Burgos on 03-14-2022 MCV (RBC) [Entitic vol] 91.5 fL 80-94 [facility] Hematocrit Auto (Bld) [Volum e fraction]Ordered By: Renard Burgos on 03-14-2022 Hematocrit (Bld) [Volume fraction] 43.9 % 40-54 [facility] Laboratory - Hematology and Cell countsOrdered By: Renard Burgos on 03-14-2022 Erythrocyte distribution width (RBC) [Entitic vol] 41.1 fL 35.1-43.9 [facility] Erythrocyte distribution width (RBC) [Ratio] 12.4 % 11.6-14.6 [facility] Immature granulocytes/100 WBC (Bld) 0.600 % 0.0-0.9 [facility] Comment on above: IG% - Immature Granu locytes (promyelocytes, myelocytes and metamyelocytes) > 1% indicates that a LEFT SHIFT is Present. MCH (RBC) [Entitic mass] 30.2 pg 27.0-32.0 [facility] Nucleated RBC/100 WBC (Bld) [Ratio] 0 % 0-5 [facility] MCHC Auto (RBC) [Mass/Vol]Or dered By: Renard Burgos on 03-14-2022 MCHC (RBC) [Mass/Vol] 33.0 g/dL 32-36 [facility] Platelets bldOrdered By: [facility] lizy Burgos on 03-14-2022 Platelets (Bld) [#/Vol] 201 10*3/uL 150-450 [facility] Absolute lymphocyte countOrd ered By: Renard Burgos on 2022 Lymphocytes Auto (Unsp spec) [#/Vol] 1.97 10*3/uL 0.83-4.51 [facility] Basophil percentageOrdered B y: Renard Burgos on 2022 Basophils/100 WBC (Bld) 0.6 % 0-1 [facility] Eosinophils/100 WBC (Bld) 0.4 % 0-5 [facility] Neutrophils (Bld) [#/Vol] 4.3 10*3/uL 2.0-7.7 [facility] Neutrophils/100 WBC (Bld) 61.3 % 47-70 [facility] WBC (Bld) [#/Vol] 7.0 10*3/uL 4.4-11.0 [facility] Blood erythrocytes count (nu mber/volume)Ordered By: Renard Burgos on 2022 RBC (Bld) [#/Vol] 4.78 10*6/uL 4.6-6.[address] [facility] Blood hemoglobin measurement (mass/volume)Ordered By: Renard Burgos on 2022 Hemoglobin (Bld) [Mass/Vol] 14.4 g/dL 13.0-16.5 [facility] Blood lymphocytes/100 leukoc ytesOrdered By: Renard Burgos on 2022 Lymphocytes/100 WBC (Bld) 28.3 % 19-41 [facility] Blood monocytes/100 leukocyt esOrdered By: Renard Burgos on 2022 Monocytes/100 WBC (Bld) 9.1 % 0-10 [facility] Blood platelet mean volumeOr dered By: Renard Burgos on 2022 Platelet mean volume (Bld) [Entitic vol] 11.1 fL 6.2-12.0 [facility] Determination of erythrocyte mean corpuscular volume (MCV)Ordered By: Renard Burgos on 2022 MCV (RBC) [Entitic vol] 91.2 fL 80-94 [facility] Hematocrit Auto (Bld) [Volum e fraction]Ordered By: Renard Burgos on 2022 Hematocrit (Bld) [Volume fraction] 43.6 % 40-54 [facility] Laboratory - Hematology and Cell countsOrdered By: Renard Burgos on 2022 Erythrocyte distribution width (RBC) [Entitic vol] 42.0 fL 35.1-43.9 [facility] Erythrocyte distribution width (RBC) [Ratio] 12.6 % 11.6-14.6 [facility] Immature granulocytes/100 WBC (Bld) 0.300 % 0.0-0.9 [facility] Comment on above: IG% - Immature Granu locytes (promyelocytes, myelocytes and metamyelocytes) > 1% indicates that a LEFT SHIFT is Present. MCH (RBC) [Entitic mass] 30.1 pg 27.0-32.0 [facility] Nucleated RBC/100 WBC (Bld) [Ratio] 0 % 0-5 [facility] MCHC Auto (RBC) [Mass/Vol]Or dered By: Renard Burgos on 2022 MCHC (RBC) [Mass/Vol] 33.0 g/dL 32-36 [facility] Platelets bldOrdered By: Lyubov Burgos on 2022 Platelets (Bld) [#/Vol] 210 10*3/uL 150-450 [facility] Absolute lymphocyte countOrd ered By: Renard Burgos on 02-28-2022 Lymphocytes Auto (Unsp spec) [#/Vol] 1.85 10*3/uL 0.83-4.51 [facility] Basophil percentageOrdered B y: Renard Burgos on 02-28-2022 Basophils/100 WBC (Bld) 0.4 % 0-1 [facility] Eosinophils/100 WBC (Bld) 0.4 % 0-5 [facility] Neutrophils (Bld) [#/Vol] 5.3 10*3/uL 2.0-7.7 [facility] Neutrophils/100 WBC (Bld) 67.8 % 47-70 [facility] WBC (Bld) [#/Vol] 7.8 10*3/uL 4.4-11.0 [facility] Blood erythrocytes count (nu mber/volume)Ordered By: Renard Burgos on 02-28-2022 RBC (Bld) [#/Vol] 4.58 10*6/uL 4.6-6.[address] [facility] Blood hemoglobin measurement (mass/volume)Ordered By: Renard Burgos on 02-28-2022 Hemoglobin (Bld) [Mass/Vol] 14.3 g/dL 13.0-16.5 [facility] Blood lymphocytes/100 leukoc ytesOrdered By: Renard Burgos on 02-28-2022 Lymphocytes/100 WBC (Bld) 23.8 % 19-41 [facility] Blood monocytes/100 leukocyt esOrdered By: Renard Burgos on 02-28-2022 Monocytes/100 WBC (Bld) 7.2 % 0-10 [facility] Blood platelet mean volumeOr dered By: Renard Burgos on 02-28-2022 Platelet mean volume (Bld) [Entitic vol] 10.8 fL 6.2-12.0 [facility] Determination of erythrocyte mean corpuscular volume (MCV)Ordered By: Renard Burgos on 02-28-2022 MCV (RBC) [Entitic vol] 91.5 fL 80-94 [facility] Hematocrit Auto (Bld) [Volum e fraction]Ordered By: Renard Burgos on 02-28-2022 Hematocrit (Bld) [Volume fraction] 41.9 % 40-54 [facility] Laboratory - Hematology and Cell countsOrdered By: Renard Burgos on 02-28-2022 Erythrocyte distribution width (RBC) [Entitic vol] 42.2 fL 35.1-43.9 [facility] Erythrocyte distribution width (RBC) [Ratio] 12.7 % 11.6-14.6 [facility] Immature granulocytes/100 WBC (Bld) 0.400 % 0.0-0.9 [facility] Comment on above: IG% - Immature Granu locytes (promyelocytes, myelocytes and metamyelocytes) > 1% indicates that a LEFT SHIFT is Present. MCH (RBC) [Entitic mass] 31.2 pg 27.0-32.0 [facility] Nucleated RBC/100 WBC (Bld) [Ratio] 0 % 0-5 [facility] MCHC Auto (RBC) [Mass/Vol]Or dered By: Renard Burgos on 02-28-2022 MCHC (RBC) [Mass/Vol] 34.1 g/dL 32-36 [facility] Platelets bldOrdered By: Lyubov Burgos on 02-28-2022 Platelets (Bld) [#/Vol] 202 10*3/uL 150-450 [facility] Absolute lymphocyte countOrd ered By: Renard Burgos on 02-21-2022 Lymphocytes Auto (Unsp spec) [#/Vol] 1.93 10*3/uL 0.83-4.51 [facility] Basophil percentageOrdered B y: Renard Burgos on 02-21-2022 Basophils/100 WBC (Bld) 0.4 % 0-1 [facility] Eosinophils/100 WBC (Bld) 0.4 % 0-5 [facility] Neutrophils (Bld) [#/Vol] 4.6 10*3/uL 2.0-7.7 [facility] Neutrophils/100 WBC (Bld) 63.4 % 47-70 [facility] WBC (Bld) [#/Vol] 7.2 10*3/uL 4.4-11.0 [facility] Blood erythrocytes count (nu mber/volume)Ordered By: Renard Burgos on 02-21-2022 RBC (Bld) [#/Vol] 4.54 10*6/uL 4.6-6.[address] [facility] Blood hemoglobin measurement (mass/volume)Ordered By: Renard Burgos on 02-21-2022 Hemoglobin (Bld) [Mass/Vol] 14.1 g/dL 13.0-16.5 [facility] Blood lymphocytes/100 leukoc ytesOrdered By: Renard Burgos on 02-21-2022 Lymphocytes/100 WBC (Bld) 26.7 % 19-41 [facility] Blood monocytes/100 leukocyt esOrdered By: Renard Burgos on 02-21-2022 Monocytes/100 WBC (Bld) 8.8 % 0-10 [facility] Blood platelet mean volumeOr dered By: Renard Burgos on 02-21-2022 Platelet mean volume (Bld) [Entitic vol] 11.1 fL 6.2-12.0 [facility] Determination of erythrocyte mean corpuscular volume (MCV)Ordered By: Renard Burgos on 02-21-2022 MCV (RBC) [Entitic vol] 91.4 fL 80-94 [facility] Hematocrit Auto (Bld) [Volum e fraction]Ordered By: Renard Burgos on 02-21-2022 Hematocrit (Bld) [Volume fraction] 41.5 % 40-54 [facility] Laboratory - Hematology and Cell countsOrdered By: Renard Burgos on 02-21-2022 Erythrocyte distribution width (RBC) [Entitic vol] 41.9 fL 35.1-43.9 [facility] Erythrocyte distribution width (RBC) [Ratio] 12.6 % 11.6-14.6 [facility] Immature granulocytes/100 WBC (Bld) 0.300 % 0.0-0.9 [facility] Comment on above: IG% - Immature Granu locytes (promyelocytes, myelocytes and metamyelocytes) > 1% indicates that a LEFT SHIFT is Present. MCH (RBC) [Entitic mass] 31.1 pg 27.0-32.0 [facility] Nucleated RBC/100 WBC (Bld) [Ratio] 0 % 0-5 [facility] MCHC Auto (RBC) [Mass/Vol]Or dered By: Renard Burgos on 02-21-2022 MCHC (RBC) [Mass/Vol] 34.0 g/dL 32-36 [facility] Platelets bldOrdered By: Lyubov Burgos on 02-21-2022 Platelets (Bld) [#/Vol] 189 10*3/uL 150-450 [facility] Absolute lymphocyte countOrd ered By: Renard Burgos on 02-14-2022 Lymphocytes Auto (Unsp spec) [#/Vol] 2.00 10*3/uL 0.83-4.51 [facility] Basophil percentageOrdered B y: Renard Burgos on 02-14-2022 Basophils/100 WBC (Bld) 0.6 % 0-1 [facility] Eosinophils/100 WBC (Bld) 0.3 % 0-5 [facility] Neutrophils (Bld) [#/Vol] 6.4 10*3/uL 2.0-7.7 [facility] Neutrophils/100 WBC (Bld) 69.5 % 47-70 [facility] WBC (Bld) [#/Vol] 9.3 10*3/uL 4.4-11.0 [facility] Blood erythrocytes count (nu mber/volume)Ordered By: Renard Burgos on 02-14-2022 RBC (Bld) [#/Vol] 4.65 10*6/uL 4.6-6.[address] [facility] Blood hemoglobin measurement (mass/volume)Ordered By: Renard Burgos on 02-14-2022 Hemoglobin (Bld) [Mass/Vol] 14.6 g/dL 13.0-16.5 [facility] Blood lymphocytes/100 leukoc ytesOrdered By: Renard Burgos on 02-14-2022 Lymphocytes/100 WBC (Bld) 21.6 % 19-41 [facility] Blood monocytes/100 leukocyt esOrdered By: Renard Burgos on 02-14-2022 Monocytes/100 WBC (Bld) 7.6 % 0-10 [facility] Blood platelet mean volumeOr dered By: Renard Burgos on 02-14-2022 Platelet mean volume (Bld) [Entitic vol] 11.1 fL 6.2-12.0 [facility] Determination of erythrocyte mean corpuscular volume (MCV)Ordered By: Renard Burgos on 02-14-2022 MCV (RBC) [Entitic vol] 91.8 fL 80-94 [facility] Hematocrit Auto (Bld) [Volum e fraction]Ordered By: Renard Burgos on 02-14-2022 Hematocrit (Bld) [Volume fraction] 42.7 % 40-54 [facility] Laboratory - Hematology and Cell countsOrdered By: Renard Burgos on 02-14-2022 Erythrocyte distribution width (RBC) [Entitic vol] 43.7 fL 35.1-43.9 [facility] Erythrocyte distribution width (RBC) [Ratio] 13.0 % 11.6-14.6 [facility] Immature granulocytes/100 WBC (Bld) 0.400 % 0.0-0.9 [facility] Comment on above: IG% - Immature Granu locytes (promyelocytes, myelocytes and metamyelocytes) > 1% indicates that a LEFT SHIFT is Present. MCH (RBC) [Entitic mass] 31.4 pg 27.0-32.0 [facility] Nucleated RBC/100 WBC (Bld) [Ratio] 0 % 0-5 [facility] MCHC Auto (RBC) [Mass/Vol]Or dered By: Renard Burgos on 02-14-2022 MCHC (RBC) [Mass/Vol] 34.2 g/dL 32-36 [facility] Platelets bldOrdered By: Lyubov Burgos on 02-14-2022 Platelets (Bld) [#/Vol] 187 10*3/uL 150-450 [facility] Absolute lymphocyte countOrd ered By: Renard Burgos on 02-07-2022 Lymphocytes Auto (Unsp spec) [#/Vol] 1.97 10*3/uL 0.83-4.51 [facility] Basophil percentageOrdered B y: Renard Burgos on 02-07-2022 Basophils/100 WBC (Bld) 0.4 % 0-1 [facility] Eosinophils/100 WBC (Bld) 0.3 % 0-5 [facility] Neutrophils (Bld) [#/Vol] 4.2 10*3/uL 2.0-7.7 [facility] Neutrophils/100 WBC (Bld) 61.8 % 47-70 [facility] WBC (Bld) [#/Vol] 6.8 10*3/uL 4.4-11.0 [facility] Blood erythrocytes count (nu mber/volume)Ordered By: Renard Burgos on 02-07-2022 RBC (Bld) [#/Vol] 4.86 10*6/uL 4.6-6.[address] [facility] Blood hemoglobin measurement (mass/volume)Ordered By: Renard Burgos on 02-07-2022 Hemoglobin (Bld) [Mass/Vol] 15.4 g/dL 13.0-16.5 [facility] Blood lymphocytes/100 leukoc ytesOrdered By: Renard Burgos on 02-07-2022 Lymphocytes/100 WBC (Bld) 29.1 % 19-41 [facility] Blood monocytes/100 leukocyt esOrdered By: Renard Burgos on 02-07-2022 Monocytes/100 WBC (Bld) 8.1 % 0-10 [facility] Blood platelet mean volumeOr dered By: Renard Burgos on 02-07-2022 Platelet mean volume (Bld) [Entitic vol] 11.0 fL 6.2-12.0 [facility] Determination of erythrocyte mean corpuscular volume (MCV)Ordered By: Renard Burgos on 02-07-2022 MCV (RBC) [Entitic vol] 92.6 fL 80-94 [facility] Hematocrit Auto (Bld) [Volum e fraction]Ordered By: Renard Burgos on 02-07-2022 Hematocrit (Bld) [Volume fraction] 45.0 % 40-54 [facility] Laboratory - Hematology and Cell countsOrdered By: Renard Burgos on 02-07-2022 Erythrocyte distribution width (RBC) [Entitic vol] 43.1 fL 35.1-43.9 [facility] Erythrocyte distribution width (RBC) [Ratio] 12.7 % 11.6-14.6 [facility] Immature granulocytes/100 WBC (Bld) 0.300 % 0.0-0.9 [facility] Comment on above: IG% - Immature Granu locytes (promyelocytes, myelocytes and metamyelocytes) > 1% indicates that a LEFT SHIFT is Present. MCH (RBC) [Entitic mass] 31.7 pg 27.0-32.0 [facility] Nucleated RBC/100 WBC (Bld) [Ratio] 0 % 0-5 [facility] MCHC Auto (RBC) [Mass/Vol]Or dered By: Renard Burgos on 02-07-2022 MCHC (RBC) [Mass/Vol] 34.2 g/dL 32-36 [facility] Platelets bldOrdered By: Pet lizy Loretta on 02-07-2022 Platelets (Bld) [#/Vol] 196 10*3/uL 150-450 [facility] Absolute lymphocyte countOrd ered By: Renard Burgos on 01-31-2022 Lymphocytes Auto (Unsp spec) [#/Vol] 2.19 10*3/uL 0.83-4.51 [facility] Basophil percentageOrdered B y: Renard Burgos on 01-31-2022 Basophils/100 WBC (Bld) 0.3 % 0-1 [facility] Eosinophils/100 WBC (Bld) 0.2 % 0-5 [facility] Neutrophils (Bld) [#/Vol] 5.7 10*3/uL 2.0-7.7 [facility] Neutrophils/100 WBC (Bld) 64.9 % 47-70 [facility] WBC (Bld) [#/Vol] 8.8 10*3/uL 4.4-11.0 [facility] Blood erythrocytes count (nu mber/volume)Ordered By: Renard Burgos on 01-31-2022 RBC (Bld) [#/Vol] 4.81 10*6/uL 4.6-6.[address] [facility] Blood hemoglobin measurement (mass/volume)Ordered By: Renard Burgos on 01-31-2022 Hemoglobin (Bld) [Mass/Vol] 14.9 g/dL 13.0-16.5 [facility] Blood lymphocytes/100 leukoc ytesOrdered By: Renard Burgos on 01-31-2022 Lymphocytes/100 WBC (Bld) 24.9 % 19-41 [facility] Blood monocytes/100 leukocyt esOrdered By: Renard Burgos on 01-31-2022 Monocytes/100 WBC (Bld) 9.2 % 0-10 [facility] Blood platelet mean volumeOr dered By: Renard Burgos on 01-31-2022 Platelet mean volume (Bld) [Entitic vol] 11.0 fL 6.2-12.0 [facility] Determination of erythrocyte mean corpuscular volume (MCV)Ordered By: Renard Burgos on 01-31-2022 MCV (RBC) [Entitic vol] 92.9 fL 80-94 [facility] Hematocrit Auto (Bld) [Volum e fraction]Ordered By: Renard Burgos on 01-31-2022 Hematocrit (Bld) [Volume fraction] 44.7 % 40-54 [facility] Laboratory - Hematology and Cell countsOrdered By: Renard Burgos on 01-31-2022 Erythrocyte distribution width (RBC) [Entitic vol] 42.9 fL 35.1-43.9 [facility] Erythrocyte distribution width (RBC) [Ratio] 12.6 % 11.6-14.6 [facility] Immature granulocytes/100 WBC (Bld) 0.500 % 0.0-0.9 [facility] Comment on above: IG% - Immature Granu locytes (promyelocytes, myelocytes and metamyelocytes) > 1% indicates that a LEFT SHIFT is Present. MCH (RBC) [Entitic mass] 31.0 pg 27.0-32.0 [facility] Nucleated RBC/100 WBC (Bld) [Ratio] 0 % 0-5 [facility] MCHC Auto (RBC) [Mass/Vol]Or dered By: Renard Burgos on 01-31-2022 MCHC (RBC) [Mass/Vol] 33.3 g/dL 32-36 [facility] Platelets bldOrdered By: Lyubov Burgos on 01-31-2022 Platelets (Bld) [#/Vol] 204 10*3/uL 150-450 [facility] Absolute lymphocyte countOrd ered By: Renard Burgos on 01-24-2022 Lymphocytes Auto (Unsp spec) [#/Vol] 1.82 10*3/uL 0.83-4.51 [facility] Basophil percentageOrdered B y: Renard Burgos on 01-24-2022 Basophils/100 WBC (Bld) 0.3 % 0-1 [facility] Eosinophils/100 WBC (Bld) 0.3 % 0-5 [facility] Neutrophils (Bld) [#/Vol] 6.1 10*3/uL 2.0-7.7 [facility] Neutrophils/100 WBC (Bld) 69.9 % 47-70 [facility] WBC (Bld) [#/Vol] 8.7 10*3/uL 4.4-11.0 [facility] Blood erythrocytes count (nu mber/volume)Ordered By: Renard Burgos on 01-24-2022 RBC (Bld) [#/Vol] 4.74 10*6/uL 4.6-6.[address] [facility] Blood hemoglobin measurement (mass/volume)Ordered By: Renard Burgos on 01-24-2022 Hemoglobin (Bld) [Mass/Vol] 14.5 g/dL 13.0-16.5 [facility] Blood lymphocytes/100 leukoc ytesOrdered By: Renard Burgos on 01-24-2022 Lymphocytes/100 WBC (Bld) 20.9 % 19-41 [facility] Blood monocytes/100 leukocyt esOrdered By: Renard Burgos on 01-24-2022 Monocytes/100 WBC (Bld) 8.4 % 0-10 [facility] Blood platelet mean volumeOr dered By: Renard Burgos on 01-24-2022 Platelet mean volume (Bld) [Entitic vol] 10.9 fL 6.2-12.0 [facility] Determination of erythrocyte mean corpuscular volume (MCV)Ordered By: Renard Burgos on 01-24-2022 MCV (RBC) [Entitic vol] 92.0 fL 80-94 [facility] Hematocrit Auto (Bld) [Volum e fraction]Ordered By: Renard Burgos on 01-24-2022 Hematocrit (Bld) [Volume fraction] 43.6 % 40-54 [facility] - Hematology and Cell countsOrdered By: Renard Burgos on 01-24-2022 Erythrocyte distribution width (RBC) [Entitic vol] 42.3 fL 35.1-43.9 [place] [facility] Erythrocyte distribution width (RBC) [Ratio] 12.5 % 11.6-14.6 [facility] Immature granulocytes/100 WBC (Bld) 0.200 % 0.0-0.9 [facility] Comment on above: IG% - Immature Granu locytes (promyelocytes, myelocytes and metamyelocytes) > 1% indicates that a LEFT SHIFT is Present. MCH (RBC) [Entitic mass] 30.6 pg 27.0-32.0 [facility] Nucleated RBC/100 WBC (Bld) [Ratio] 0 % 0-5 [facility] MCHC Auto (RBC) [Mass/Vol]Or dered By: Renard Burgos on 01-24-2022 MCHC (RBC) [Mass/Vol] 33.3 g/dL 32-36 [facility] Platelets bldOrdered By: Pet lizy Burgos on 01-24-2022 Platelets (Bld) [#/Vol] 192 10*3/uL 150-450 [facility] Absolute lymphocyte counton 01-17-2022 Lymphocytes Auto (Unsp spec) [#/Vol] 1.89 10*3/uL 0.83-4.51 [facility] Work Phone: Basophil percentageon 2021 Basophils/100 WBC (Bld) 0.4 % 0-1 [facility] Work Phone: Eosinophils/100 WBC (Bld) 0.3 % 0-5 [facility] Work Phone: Neutrophils (Bld) [#/Vol] 4.4 10*3/uL 2.0-7.7 [facility] Work Phone: [phone] Neutrophils/100 WBC (Bld) 62.4 % 47-70 [facility] Work Phone: [phone] WBC (Bld) [#/Vol] 7.0 10*3/uL 4.4-11.0 [facility] Work Phone: Blood erythrocytes count (nu mber/volume)on 01-17-2022 RBC (Bld) [#/Vol] 4.64 10*6/uL 4.6-6.2 [facility]: Blood hemoglobin measurement (mass/volume)on 01-17-2022 Hemoglobin (Bld) [Mass/Vol] 14.1 g/dL 13.0-16.5 [facility] Work Phone: Blood lymphocytes/100 leukoc yteson 01-17-2022 Lymphocytes/100 WBC (Bld) 27.0 % 19-41 [facility] Work Phone: Blood monocytes/100 leukocyt eson 01-17-2022 Monocytes/100 WBC (Bld) 9.3 % 0-10 [facility] Work Phone: Blood platelet mean volumeon 01-17-2022 Platelet mean volume (Bld) [Entitic vol] 11.1 fL 6.2-12.0 [facility] Work Phone: Determination of erythrocyte mean corpuscular volume (MCV)on 01-17-2022 MCV (RBC) [Entitic vol] 91.8 fL 80-94 [facility] Work Phone: Hematocrit Auto (Bld) [Volum e fraction]on 01-17-2022 Hematocrit (Bld) [Volume fraction] 42.6 % 40-54 [facility] Work Phone: Laboratory - Hematology and Cell countson 01-17-2022 Erythrocyte distribution width (RBC) [Entitic vol] 41.5 fL 35.1-43.9 [facility] Work Phone: Erythrocyte distribution width (RBC) [Ratio] 12.5 % 11.6-14.6 [facility] Work Phone: Immature granulocytes/100 WBC (Bld) 0.600 % 0.0-0.9 [facility] Work Phone: Comment on above: IG% - Immature Granu locytes (promyelocytes, myelocytes and metamyelocytes) > 1% indicates that a LEFT SHIFT is Present. MCH (RBC) [Entitic mass] 30.4 pg 27.0-32.0 [facility] Work Phone: Nucleated RBC/100 WBC (Bld) [Ratio] 0 % 0-5 [facility] Work Phone: MCHC Auto (RBC) [Mass/Vol]on 01-17-2022 MCHC (RBC) [Mass/Vol] 33.1 g/dL 32-36 [facility] Work [facility]: Platelets bldon 01-17-2022 Platelets (Bld) [#/Vol] 200 10*3/uL 150-450 [facility] Work Phone: Absolute lymphocyte counton 01-10-2022 Lymphocytes Auto (Unsp spec) [#/Vol] 2.07 10*3/uL 0.83-4.51 [facility] Work Phone: Basophil percentageon 2021 Basophils/100 WBC (Bld) 0.6 % 0-1 [facility] Work Phone: [phone] Eosinophils/100 WBC (Bld) 0.3 % 0-5 [facility] Work Phone: [phone] Neutrophils (Bld) [#/Vol] 4.2 10*3/uL 2.0-7.7 [facility] Work Phone: Neutrophils/100 WBC (Bld) 59.2 % 47-70 [facility] Work Phone: WBC (Bld) [#/Vol] 7.0 10*3/uL 4.4-11.0 [facility] Work Phone: Blood erythrocytes count (nu mber/volume)on 01-10-2022 RBC (Bld) [#/Vol] 4.83 10*6/uL 4.6-6.[address] [facility] Work Phone: Blood hemoglobin measurement (mass/volume)on 01-10-2022 Hemoglobin (Bld) [Mass/Vol] 14.8 g/dL 13.0-16.5 [facility] Work Phone: Blood lymphocytes/100 leukoc yteson 01-10-2022 Lymphocytes/100 WBC (Bld) 29.5 % 19-41 [facility] Work Phone: [phone] Blood monocytes/100 leukocyt eson 01-10-2022 Monocytes/100 WBC (Bld) 10.1 % 0-10 [facility] Work Phone: Blood platelet mean volumeon 01-10-2022 Platelet mean volume (Bld) [Entitic vol] 10.8 fL 6.2-12.0 [facility] Work Phone: Determination of erythrocyte mean corpuscular volume (MCV)on 01-10-2022 MCV (RBC) [Entitic vol] 97.5 fL 80-94 [facility] Work Phone: Hematocrit Auto (Bld) [Volum e fraction]on 01-10-2022 Hematocrit (Bld) [Volume fraction] 47.1 % 40-54 [facility] Work Phone: Laboratory - Hematology and Cell countson 01-10-2022 Erythrocyte distribution width (RBC) [Entitic vol] 44.9 fL 35.1-43.9 [facility] Work Phone: Erythrocyte distribution width (RBC) [Ratio] 12.7 % 11.6-14.6 [facility] Work Phone: Immature granulocytes/100 WBC (Bld) 0.300 % 0.0-0.9 [facility] Work Phone: Comment on above: IG% - Immature Granu locytes (promyelocytes, myelocytes and metamyelocytes) > 1% indicates that a LEFT SHIFT is Present. MCH (RBC) [Entitic mass] 30.6 pg 27.0-32.0 [facility] Work Phone: Nucleated RBC/100 WBC (Bld) [Ratio] 0 % 0-5 [facility] Work Phone: MCHC Auto (RBC) [Mass/Vol]on 01-10-2022 MCHC (RBC) [Mass/Vol] 31.4 g/dL 32-36 [facility] Work Phone: Platelets bldon 01-10-2022 Platelets (Bld) [#/Vol] 169 10*3/uL 150-450 [facility] Work Phone: Absolute lymphocyte counton 01-04-2022 Lymphocytes Auto (Unsp spec) [#/Vol] 1.84 10*3/uL 0.83-4.51 [facility] Work Phone: Basophil percentageon 2021 Basophils/100 WBC (Bld) 0.3 % 0-1 [facility] Work Phone: Eosinophils/100 WBC (Bld) 0.3 % 0-5 [facility] Work Phone: Neutrophils (Bld) [#/Vol] 4.8 10*3/uL 2.0-7.7 [facility] Work Phone: Neutrophils/100 WBC (Bld) 64.8 % 47-70 [facility] Work Phone: [phone] WBC (Bld) [#/Vol] 7.4 10*3/uL 4.4-11.0 [facility] Work [facility]: Blood erythrocytes count (nu mber/volume)on 01-04-2022 RBC (Bld) [#/Vol] 4.67 10*6/uL 4.6-6.2 [facility] Work Phone: Blood hemoglobin measurement (mass/volume)on 01-04-2022 Hemoglobin (Bld) [Mass/Vol] 14.2 g/dL 13.0-16.5 [facility] Work Phone: Blood lymphocytes/100 leukoc yteson 01-04-2022 Lymphocytes/100 WBC (Bld) 25.0 % 19-41 [facility] Work Phone: Blood monocytes/100 leukocyt eson 01-04-2022 Monocytes/100 WBC (Bld) 9.1 % 0-10 [facility] Work Phone: Blood platelet mean volumeon 01-04-2022 Platelet mean volume (Bld) [Entitic vol] 11.0 fL 6.2-12.0 [facility] Work Phone: Determination of erythrocyte mean corpuscular volume (MCV)on 01-04-2022 MCV (RBC) [Entitic vol] 91.0 fL 80-94 [facility] Work Phone: Hematocrit Auto (Bld) [Volum e fraction]on 01-04-2022 Hematocrit (Bld) [Volume fraction] 42.5 % 40-54 [facility] Work Phone: Laboratory - Hematology and Cell countson 01-04-2022 Erythrocyte distribution width (RBC) [Entitic vol] 41.4 fL 35.1-43.9 [facility] Work Phone: Erythrocyte distribution width (RBC) [Ratio] 12.7 % 11.6-14.6 [facility] Work Phone: Immature granulocytes/100 WBC (Bld) 0.500 % 0.0-0.9 [facility] Work Phone: Comment on above: IG% - Immature Granu locytes (promyelocytes, myelocytes and metamyelocytes) > 1% indicates that a LEFT SHIFT is Present. MCH (RBC) [Entitic mass] 30.4 pg 27.0-32.0 [facility] Work Phone: Nucleated RBC/100 WBC (Bld) [Ratio] 0 % 0-5 [facility] Work Phone: MCHC Auto (RBC) [Mass/Vol]on 01-04-2022 MCHC (RBC) [Mass/Vol] 33.4 g/dL 32-36 [facility] Work Phone: Platelets bldon 01-04-2022 Platelets (Bld) [#/Vol] 184 10*3/uL 150-450 [facility] Work Phone: Absolute lymphocyte counton 12-27-2021 Lymphocytes Auto (Unsp spec) [#/Vol] 1.79 10*3/uL 0.83-4.51 [facility] Work Phone: Basophil percentageon 2021 Basophils/100 WBC (Bld) 0.4 % 0-1 [facility] Work Phone: Eosinophils/100 WBC (Bld) 0.4 % 0-5 [facility] Work Phone: Neutrophils (Bld) [#/Vol] 4.9 10*3/uL 2.0-7.7 [facility] Work Phone: Neutrophils/100 WBC (Bld) 65.2 % 47-70 [facility] Work Phone: WBC (Bld) [#/Vol] 7.6 10*3/uL 4.4-11.0 [facility] Work Phone: Blood erythrocytes count (nu mber/volume)on 12-27-2021 RBC (Bld) [#/Vol] 4.66 10*6/uL 4.6-6.2 [facility] Work Phone: Blood hemoglobin measurement (mass/volume)on 12-27-2021 Hemoglobin (Bld) [Mass/Vol] 14.5 g/dL 13.0-16.5 [facility] Work Phone: Blood lymphocytes/100 leukoc yteson 12-27-2021 Lymphocytes/100 WBC (Bld) 23.6 % 19-41 [facility] Work Phone: Blood monocytes/100 leukocyt eson 12-27-2021 Monocytes/100 WBC (Bld) 10.0 % 0-10 [facility] Work Phone: Blood platelet mean volumeon 12-27-2021 Platelet mean volume (Bld) [Entitic vol] 10.9 fL 6.2-12.0 [facility] Work Phone: Determination of erythrocyte mean corpuscular volume (MCV)on 12-27-2021 MCV (RBC) [Entitic vol] 91.0 fL 80-94 [facility] Work Phone: Hematocrit Auto (Bld) [Volum e fraction]on 12-27-2021 Hematocrit (Bld) [Volume fraction] 42.4 % 40-54 [facility] Work Phone: Laboratory - Hematology and Cell countson 12-27-2021 Erythrocyte distribution width (RBC) [Entitic vol] 41.2 fL 35.1-43.9 [facility] Work Phone: [phone] Erythrocyte distribution width (RBC) [Ratio] 12.6 % 11.6-14.6 [facility] Work Phone: Immature granulocytes/100 WBC (Bld) 0.400 % 0.0-0.9 [facility] Work Phone: Comment on above: IG% - Immature Granu locytes (promyelocytes, myelocytes and metamyelocytes) > 1% indicates that a LEFT SHIFT is Present. MCH (RBC) [Entitic mass] 31.1 pg 27.0-32.0 [facility] Work Phone: Nucleated RBC/100 WBC (Bld) [Ratio] 0 % 0-5 [facility] Work Phone: MCHC Auto (RBC) [Mass/Vol]on 12-27-2021 MCHC (RBC) [Mass/Vol] 34.2 g/dL 32-36 [facility] Work Phone: Platelets bldon 12-27-2021 Platelets (Bld) [#/Vol] 185 10*3/uL 150-450 [facility] Work Phone: Absolute lymphocyte counton 12-20-2021 Lymphocytes Auto (Unsp spec) [#/Vol] 2.02 10*3/uL 0.83-4.51 [facility] Work Phone: Basophil percentageon 2021 Basophils/100 WBC (Bld) 0.2 % 0-1 [facility] Work Phone: Eosinophils/100 WBC (Bld) 0.3 % 0-5 [facility] Work Phone: Neutrophils (Bld) [#/Vol] 3.6 10*3/uL 2.0-7.7 [facility] Work Phone: Neutrophils/100 WBC (Bld) 57.8 % 47-70 [facility] Work Phone: WBC (Bld) [#/Vol] 6.1 10*3/uL 4.4-11.0 [facility] Work Phone: Blood erythrocytes count (nu mber/volume)on 12-20-2021 RBC (Bld) [#/Vol] 4.81 10*6/uL 4.6-6.2 [facility] Work Phone: Blood hemoglobin measurement (mass/volume)on 12-20-2021 Hemoglobin (Bld) [Mass/Vol] 14.8 g/dL 13.0-16.5 [facility] Work Phone: Blood lymphocytes/100 leukoc yteson 12-20-2021 Lymphocytes/100 WBC (Bld) 32.9 % 19-41 [facility] Work Phone: Blood monocytes/100 leukocyt eson 12-20-2021 Monocytes/100 WBC (Bld) 8.3 % 0-10 [facility] Work Phone: Blood platelet adequacy dete ction by light microscopyon 12-20-2021 Platelets LM Ql (Bld) ADEQUATE ADEQ [facility] Work Phone: Blood platelet mean volumeon 12-20-2021 Platelet mean volume (Bld) [Entitic vol] 11.1 fL 6.2-12.0 [facility] Work Phone: Determination of erythrocyte mean corpuscular volume (MCV)on 12-20-2021 MCV (RBC) [Entitic vol] 93.1 fL 80-94 [facility] Work Phone: Hematocrit Auto (Bld) [Volum e fraction]on 12-20-2021 Hematocrit (Bld) [Volume fraction] 44.8 % 40-54 [facility] Work Phone: Laboratory - Hematology and Cell countson 12-20-2021 Erythrocyte distribution width (RBC) [Entitic vol] 42.4 fL 35.1-43.9 [facility] Work Phone: Erythrocyte distribution width (RBC) [Ratio] 12.4 % 11.6-14.6 [facility] Work Phone: Immature granulocytes/100 WBC (Bld) 0.500 % 0.0-0.9 [facility] Work Phone: Comment on above: IG% - Immature Granu locytes (promyelocytes, myelocytes and metamyelocytes) > 1% indicates that a LEFT SHIFT is Present. MCH (RBC) [Entitic mass] 30.8 pg 27.0-32.0 [facility] Work Phone: Nucleated RBC/100 WBC (Bld) [Ratio] 0 % 0-5 [facility] Work Phone: MCHC Auto (RBC) [Mass/Vol]on 12-20-2021 MCHC (RBC) [Mass/Vol] 33.0 g/dL 32-36 [facility] Work Phone: Platelets bldon 12-20-2021 Platelets (Bld) [#/Vol] See comment 150-450 [facility] Work Phone: Comment on above: Please note: For thi s sample, a platelet estimate is provided rather than a platelet count due to platelet clumping. Other parameters associated with this sample are not affected by platelet clumping. If a more accurate platelet count is required, a redraw of the patient will be necessary. Absolute lymphocyte counton 12-13-2021 Lymphocytes Auto (Unsp spec) [#/Vol] 1.88 10*3/uL 0.83-4.51 [facility] Work Phone: Basophil percentageon 2021 Basophils/100 WBC (Bld) 0.6 % 0-1 [facility] Work Phone: [phone] Eosinophils/100 WBC (Bld) 0.3 % 0-5 [facility] Work Phone: [phone] Neutrophils (Bld) [#/Vol] 4.5 10*3/uL 2.0-7.7 [facility] Work Phone: Neutrophils/100 WBC (Bld) 63.6 % 47-70 [facility] Work Phone: WBC (Bld) [#/Vol] 7.1 10*3/uL 4.4-11.0 [facility] Work Phone: Blood erythrocytes count (nu mber/volume)on 12-13-2021 RBC (Bld) [#/Vol] 4.70 10*6/uL 4.6-6.2 [facility] Work Phone: Blood hemoglobin measurement (mass/volume)on 12-13-2021 Hemoglobin (Bld) [Mass/Vol] 14.4 g/dL 13.0-16.5 [facility] Work Phone: Blood lymphocytes/100 leukoc yteson 12-13-2021 Lymphocytes/100 WBC (Bld) 26.7 % 19-41 [facility] Work Phone: Blood monocytes/100 leukocyt eson 12-13-2021 Monocytes/100 WBC (Bld) 8.5 % 0-10 [facility] Work Phone: Blood platelet mean volumeon 12-13-2021 Platelet mean volume (Bld) [Entitic vol] 10.9 fL 6.2-12.0 [facility] Work Phone: Determination of erythrocyte mean corpuscular volume (MCV)on 12-13-2021 MCV (RBC) [Entitic vol] 90.9 fL 80-94 [facility] Work Phone: Hematocrit Auto (Bld) [Volum e fraction]on 12-13-2021 Hematocrit (Bld) [Volume fraction] 42.7 % 40-54 [facility] Work Phone: Laboratory - Hematology and Cell countson 12-13-2021 Erythrocyte distribution width (RBC) [Entitic vol] 42.1 fL 35.1-43.9 [facility] Work Phone: Erythrocyte distribution width (RBC) [Ratio] 12.6 % 11.6-14.6 [facility] Work Phone: Immature granulocytes/100 WBC (Bld) 0.300 % 0.0-0.9 [facility] Work Phone: [phone] Comment on above: IG% - Immature Granu locytes (promyelocytes, myelocytes and metamyelocytes) > 1% indicates that a LEFT SHIFT is Present. MCH (RBC) [Entitic mass] 30.6 pg 27.0-32.0 [facility] Work Phone: [phone] Nucleated RBC/100 WBC (Bld) [Ratio] 0 % 0-5 [facility] Work Phone: [phone] MCHC Auto (RBC) [Mass/Vol]on 12-13-2021 MCHC (RBC) [Mass/Vol] 33.7 g/dL 32-36 [facility] Work Phone: [phone] Platelets bldon 12-13-2021 Platelets (Bld) [#/Vol] 194 10*3/uL 150-450 [facility] Work Phone: [phone] Absolute lymphocyte counton 12-06-2021 Lymphocytes Auto (Unsp spec) [#/Vol] 1.91 10*3/uL 0.83-4.51 [facility] Work Phone: [phone] Basophil percentageon 2021 Basophils/100 WBC (Bld) 0.4 % 0-1 [facility] Work Phone: [phone] Eosinophils/100 WBC (Bld) 0.3 % 0-5 [facility] Work Phone: Neutrophils (Bld) [#/Vol] 4.4 10*3/uL 2.0-7.7 [facility] Work Phone: Neutrophils/100 WBC (Bld) 62.2 % 47-70 [facility] Work Phone: WBC (Bld) [#/Vol] 7.0 10*3/uL 4.4-11.0 [facility] Work Phone: [phone] Blood erythrocytes count (nu mber/volume)on 12-06-2021 RBC (Bld) [#/Vol] 4.58 10*6/uL 4.6-6.2 [facility] Work Phone: Blood hemoglobin measurement (mass/volume)on 12-06-2021 Hemoglobin (Bld) [Mass/Vol] 13.8 g/dL 13.0-16.5 [facility] Work Phone: Blood lymphocytes/100 leukoc yteson 12-06-2021 Lymphocytes/100 WBC (Bld) 27.2 % 19-41 [facility] Work Phone: Blood monocytes/100 leukocyt eson 12-06-2021 Monocytes/100 WBC (Bld) 9.6 % 0-10 [facility] Work Phone: Blood platelet mean volumeon 12-06-2021 Platelet mean volume (Bld) [Entitic vol] 11.1 fL 6.2-12.0 [facility] Work Phone: Determination of erythrocyte mean corpuscular volume (MCV)on 12-06-2021 MCV (RBC) [Entitic vol] 92.1 fL 80-94 [facility] Work Phone: Hematocrit Auto (Bld) [Volum e fraction]on 12-06-2021 Hematocrit (Bld) [Volume fraction] 42.2 % 40-54 [facility] Work Phone: Laboratory - Hematology and Cell countson 12-06-2021 Erythrocyte distribution width (RBC) [Entitic vol] 42.1 fL 35.1-43.9 [facility] Work Phone: Erythrocyte distribution width (RBC) [Ratio] 12.6 % 11.6-14.6 [facility] Work Phone: Immature granulocytes/100 WBC (Bld) 0.300 % 0.0-0.9 [facility] Work Phone: Comment on above: IG% - Immature Granu locytes (promyelocytes, myelocytes and metamyelocytes) > 1% indicates that a LEFT SHIFT is Present. MCH (RBC) [Entitic mass] 30.1 pg 27.0-32.0 [facility] Work Phone: Nucleated RBC/100 WBC (Bld) [Ratio] 0 % 0-5 [facility] Work Phone: MCHC Auto (RBC) [Mass/Vol]on 12-06-2021 MCHC (RBC) [Mass/Vol] 32.7 g/dL 32-36 [facility] Work Phone: Platelets bldon 12-06-2021 Platelets (Bld) [#/Vol] 180 10*3/uL 150-450 [facility] Work Phone: Absolute lymphocyte counton 11-29-2021 Lymphocytes Auto (Unsp spec) [#/Vol] 2.00 10*3/uL 0.83-4.51 [facility] Work Phone: Basophil percentageon 2021 Basophils/100 WBC (Bld) 0.4 % 0-1 [facility] Work Phone: Eosinophils/100 WBC (Bld) 0.3 % 0-5 [facility] Work Phone: Neutrophils (Bld) [#/Vol] 4.4 10*3/uL 2.0-7.7 [facility] Work Phone: Neutrophils/100 WBC (Bld) 62.8 % 47-70 [facility] Work Phone: WBC (Bld) [#/Vol] 7.0 10*3/uL 4.4-11.0 [facility] Work Phone: Blood erythrocytes count (nu mber/volume)on 11-29-2021 RBC (Bld) [#/Vol] 4.72 10*6/uL 4.6-6.[address] [facility] Work Phone: Blood hemoglobin measurement (mass/volume)on 11-29-2021 Hemoglobin (Bld) [Mass/Vol] 14.6 g/dL 13.0-16.5 [facility] Work Phone: Blood lymphocytes/100 leukoc yteson 11-29-2021 Lymphocytes/100 WBC (Bld) 28.6 % 19-41 [facility] Work Phone: Blood monocytes/100 leukocyt eson 11-29-2021 Monocytes/100 WBC (Bld) 7.6 % 0-10 [facility] Work Phone: Blood platelet mean volumeon 11-29-2021 Platelet mean volume (Bld) [Entitic vol] 11.1 fL 6.2-12.0 [facility] Work Phone: Determination of erythrocyte mean corpuscular volume (MCV)on 11-29-2021 MCV (RBC) [Entitic vol] 91.9 fL 80-94 [facility] Work Phone: Hematocrit Auto (Bld) [Volum e fraction]on 11-29-2021 Hematocrit (Bld) [Volume fraction] 43.4 % 40-54 [facility] Work Phone: Laboratory - Hematology and Cell countson 11-29-2021 Erythrocyte distribution width (RBC) [Entitic vol] 41.8 fL 35.1-43.9 [facility] Work Phone: Erythrocyte distribution width (RBC) [Ratio] 12.4 % 11.6-14.6 [facility] Work Phone: Immature granulocytes/100 WBC (Bld) 0.300 % 0.0-0.9 [facility] Work Phone: Comment on above: IG% - Immature Granu locytes (promyelocytes, myelocytes and metamyelocytes) > 1% indicates that a LEFT SHIFT is Present. MCH (RBC) [Entitic mass] 30.9 pg 27.0-32.0 [facility] Work Phone: Nucleated RBC/100 WBC (Bld) [Ratio] 0 % 0-5 [facility] Work Phone: MCHC Auto (RBC) [Mass/Vol]on 11-29-2021 MCHC (RBC) [Mass/Vol] 33.6 g/dL 32-36 [facility] Work Phone: Platelets bldon 11-29-2021 Platelets (Bld) [#/Vol] 205 10*3/uL 150-450 [facility] Work Phone: Absolute lymphocyte counton 11-22-2021 Lymphocytes Auto (Unsp spec) [#/Vol] 2.25 10*3/uL 0.83-4.51 [facility] Work Phone: Basophil percentageon 2021 Basophils/100 WBC (Bld) 0.4 % 0-1 [facility] Work Phone: Eosinophils/100 WBC (Bld) 0.4 % 0-5 [facility] Work Phone: [phone] Neutrophils (Bld) [#/Vol] 5.1 10*3/uL 2.0-7.7 [facility] Work Phone: Neutrophils/100 WBC (Bld) 61.7 % 47-70 [facility] Work Phone: WBC (Bld) [#/Vol] 8.3 10*3/uL 4.4-11.0 [facility] Work Phone: [phone] Blood erythrocytes count (nu mber/volume)on 11-22-2021 RBC (Bld) [#/Vol] 4.47 10*6/uL 4.6-6.2 [facility] Work Phone: [phone] Blood hemoglobin measurement (mass/volume)on 11-22-2021 Hemoglobin (Bld) [Mass/Vol] 13.5 g/dL 13.0-16.5 [facility] Work Phone: Blood lymphocytes/100 leukoc yteson 11-22-2021 Lymphocytes/100 WBC (Bld) 27.2 % 19-41 [facility] Work Phone: Blood monocytes/100 leukocyt eson 11-22-2021 Monocytes/100 WBC (Bld) 9.9 % 0-10 [facility] Work Phone: Blood platelet mean volumeon 11-22-2021 Platelet mean volume (Bld) [Entitic vol] 11.1 fL 6.2-12.0 [facility] Work Phone: Determination of erythrocyte mean corpuscular volume (MCV)on 11-22-2021 MCV (RBC) [Entitic vol] 92.2 fL 80-94 [facility] Work Phone: Hematocrit Auto (Bld) [Volum e fraction]on 11-22-2021 Hematocrit (Bld) [Volume fraction] 41.2 % 40-54 [facility] Work Phone: Laboratory - Hematology and Cell countson 11-22-2021 Erythrocyte distribution width (RBC) [Entitic vol] 42.3 fL 35.1-43.9 [facility] Work Phone: Erythrocyte distribution width (RBC) [Ratio] 12.6 % 11.6-14.6 [facility] Work Phone: Immature granulocytes/100 WBC (Bld) 0.400 % 0.0-0.9 [facility] Work Phone: Comment on above: IG% - Immature Granu locytes (promyelocytes, myelocytes and metamyelocytes) > 1% indicates that a LEFT SHIFT is Present. MCH (RBC) [Entitic mass] 30.2 pg 27.0-32.0 [facility] Work Phone: Nucleated RBC/100 WBC (Bld) [Ratio] 0 % 0-5 [facility] Work Phone: MCHC Auto (RBC) [Mass/Vol]on 11-22-2021 MCHC (RBC) [Mass/Vol] 32.8 g/dL 32-36 [facility] Work [facility]: Platelets bldon 11-22-2021 Platelets (Bld) [#/Vol] 190 10*3/uL 150-450 [facility] Work Phone: Absolute lymphocyte counton 11-15-2021 Lymphocytes Auto (Unsp spec) [#/Vol] 2.09 10*3/uL 0.83-4.51 [facility] Work Phone: Basophil percentageon 2021 Basophils/100 WBC (Bld) 0.6 % 0-1 [facility] Work Phone: Eosinophils/100 WBC (Bld) 0.4 % 0-5 [facility] Work Phone: Neutrophils (Bld) [#/Vol] 4.2 10*3/uL 2.0-7.7 [facility] Work Phone: Neutrophils/100 WBC (Bld) 59.1 % 47-70 [facility] Work Phone: WBC (Bld) [#/Vol] 7.1 10*3/uL 4.4-11.0 [facility]: Blood erythrocytes count (nu mber/volume)on 11-15-2021 RBC (Bld) [#/Vol] 4.72 10*6/uL 4.6-6.2 [facility]: Blood hemoglobin measurement (mass/volume)on 11-15-2021 Hemoglobin (Bld) [Mass/Vol] 14.6 g/dL 13.0-16.5 [facility] Work Phone: Blood lymphocytes/100 leukoc yteson 11-15-2021 Lymphocytes/100 WBC (Bld) 29.4 % 19-41 [facility] Work Phone: Blood monocytes/100 leukocyt eson 11-15-2021 Monocytes/100 WBC (Bld) 10.1 % 0-10 [facility] Work Phone: Blood platelet mean volumeon 11-15-2021 Platelet mean volume (Bld) [Entitic vol] 10.7 fL 6.2-12.0 [facility] Work Phone: Determination of erythrocyte mean corpuscular volume (MCV)on 11-15-2021 MCV (RBC) [Entitic vol] 91.9 fL 80-94 [facility] Work Phone: Hematocrit Auto (Bld) [Volum e fraction]on 11-15-2021 Hematocrit (Bld) [Volume fraction] 43.4 % 40-54 [facility] Work Phone: Laboratory - Hematology and Cell countson 11-15-2021 Erythrocyte distribution width (RBC) [Entitic vol] 41.9 fL 35.1-43.9 [facility] Work Phone: Erythrocyte distribution width (RBC) [Ratio] 12.4 % 11.6-14.6 [facility] Work Phone: Immature granulocytes/100 WBC (Bld) 0.400 % 0.0-0.9 [facility] Work Phone: Comment on above: IG% - Immature Granu locytes (promyelocytes, myelocytes and metamyelocytes) > 1% indicates that a LEFT SHIFT is Present. MCH (RBC) [Entitic mass] 30.9 pg 27.0-32.0 [facility] Work Phone: Nucleated RBC/100 WBC (Bld) [Ratio] 0 % 0-5 [facility] Work Phone: MCHC Auto (RBC) [Mass/Vol]on 11-15-2021 MCHC (RBC) [Mass/Vol] 33.6 g/dL 32-36 [facility] Work [facility]: Platelets bldon 11-15-2021 Platelets (Bld) [#/Vol] 191 10*3/uL 150-450 [facility] Work Phone: Absolute lymphocyte counton 11-08-2021 Lymphocytes Auto (Unsp spec) [#/Vol] 1.97 10*3/uL 0.83-4.51 [facility] Work Phone: Basophil percentageon 2021 Basophils/100 WBC (Bld) 0.3 % 0-1 [facility] Work Phone: Eosinophils/100 WBC (Bld) 0.3 % 0-5 [facility] Work Phone: Neutrophils (Bld) [#/Vol] 5.1 10*3/uL 2.0-7.7 [facility] Work Phone: Neutrophils/100 WBC (Bld) 64.6 % 47-70 [facility] Work Phone: WBC (Bld) [#/Vol] 7.8 10*3/uL 4.4-11.0 [facility] Work Phone: Blood erythrocytes count (nu mber/volume)on 11-08-2021 RBC (Bld) [#/Vol] 4.53 10*6/uL 4.6-6.2 [facility] Work Phone: [phone] Blood hemoglobin measurement (mass/volume)on 11-08-2021 Hemoglobin (Bld) [Mass/Vol] 14.2 g/dL 13.0-16.5 [facility] Work Phone: Blood lymphocytes/100 leukoc yteson 11-08-2021 Lymphocytes/100 WBC (Bld) 25.2 % 19-41 [facility] Work Phone: Blood monocytes/100 leukocyt eson 11-08-2021 Monocytes/100 WBC (Bld) 9.3 % 0-10 [facility] Work Phone: Blood platelet mean volumeon 11-08-2021 Platelet mean volume (Bld) [Entitic vol] 10.9 fL 6.2-12.0 [facility] Work Phone: Determination of erythrocyte mean corpuscular volume (MCV)on 11-08-2021 MCV (RBC) [Entitic vol] 92.7 fL 80-94 [facility] Work Phone: Hematocrit Auto (Bld) [Volum e fraction]on 11-08-2021 Hematocrit (Bld) [Volume fraction] 42.0 % 40-54 [facility] Work Phone: Laboratory - Hematology and Cell countson 11-08-2021 Erythrocyte distribution width (RBC) [Entitic vol] 42.3 fL 35.1-43.9 [facility] Work Phone: [phone] Erythrocyte distribution width (RBC) [Ratio] 12.5 % 11.6-14.6 [facility] Work Phone: [phone] Immature granulocytes/100 WBC (Bld) 0.300 % 0.0-0.9 [facility] Work Phone: Comment on above: IG% - Immature Granu locytes (promyelocytes, myelocytes and metamyelocytes) > 1% indicates that a LEFT SHIFT is Present. MCH (RBC) [Entitic mass] 31.3 pg 27.0-32.0 [facility] Work Phone: Nucleated RBC/100 WBC (Bld) [Ratio] 0 % 0-5 [facility] Work Phone: MCHC Auto (RBC) [Mass/Vol]on 11-08-2021 MCHC (RBC) [Mass/Vol] 33.8 g/dL 32-36 [facility] Work Phone: Platelets bldon 11-08-2021 Platelets (Bld) [#/Vol] 207 10*3/uL 150-450 [facility] Work Phone: Absolute lymphocyte counton 10-25-2021 Lymphocytes Auto (Unsp spec) [#/Vol] 2.05 10*3/uL 0.83-4.51 [facility] Work Phone: Basophil percentageon 2021 Basophils/100 WBC (Bld) 0.4 % 0-1 [facility] Work Phone: Eosinophils/100 WBC (Bld) 0.3 % 0-5 [facility] Work Phone: Neutrophils (Bld) [#/Vol] 4.2 10*3/uL 2.0-7.7 [facility] Work Phone: Neutrophils/100 WBC (Bld) 61.3 % 47-70 [facility] Work Phone: WBC (Bld) [#/Vol] 6.8 10*3/uL 4.4-11.0 [facility] Work Phone: Blood erythrocytes count (nu mber/volume)on 10-25-2021 RBC (Bld) [#/Vol] 4.56 10*6/uL 4.6-6.2 [facility] Work Phone: Blood hemoglobin measurement (mass/volume)on 10-25-2021 Hemoglobin (Bld) [Mass/Vol] 13.9 g/dL 13.0-16.5 [facility] Work Phone: Blood lymphocytes/100 leukoc yteson 10-25-2021 Lymphocytes/100 WBC (Bld) 30.1 % 19-41 [facility] Work Phone: Blood monocytes/100 leukocyt eson 10-25-2021 Monocytes/100 WBC (Bld) 7.3 % 0-10 [facility] Work Phone: Blood platelet mean volumeon 10-25-2021 Platelet mean volume (Bld) [Entitic vol] 10.6 fL 6.2-12.0 [facility] Work Phone: Determination of erythrocyte mean corpuscular volume (MCV)on 10-25-2021 MCV (RBC) [Entitic vol] 91.0 fL 80-94 [facility] Work Phone: Hematocrit Auto (Bld) [Volum e fraction]on 10-25-2021 Hematocrit (Bld) [Volume fraction] 41.5 % 40-54 [facility] Work Phone: Laboratory - Hematology and Cell countson 10-25-2021 Erythrocyte distribution width (RBC) [Entitic vol] 41.7 fL 35.1-43.9 [facility] Work Phone: Erythrocyte distribution width (RBC) [Ratio] 12.6 % 11.6-14.6 [facility] Work Phone: Immature granulocytes/100 WBC (Bld) 0.600 % 0.0-0.9 [facility] Work Phone: Comment on above: IG% - Immature Granu locytes (promyelocytes, myelocytes and metamyelocytes) > 1% indicates that a LEFT SHIFT is Present. MCH (RBC) [Entitic mass] 30.5 pg 27.0-32.0 [facility] Work Phone: Nucleated RBC/100 WBC (Bld) [Ratio] 0 % 0-5 [facility] Work Phone: [phone] MCHC Auto (RBC) [Mass/Vol]on 10-25-2021 MCHC (RBC) [Mass/Vol] 33.5 g/dL 32-36 [facility] Work Phone: Platelets bldon 10-25-2021 Platelets (Bld) [#/Vol] 191 10*3/uL 150-450 [facility] Work Phone: Absolute lymphocyte counton 10-18-2021 Lymphocytes Auto (Unsp spec) [#/Vol] 1.66 10*3/uL 0.83-4.51 [facility] Work Phone: Basophil percentageon 2021 Basophils/100 WBC (Bld) 0.5 % 0-1 [facility] Work Phone: Eosinophils/100 WBC (Bld) 0.2 % 0-5 [facility] Work Phone: Neutrophils (Bld) [#/Vol] 4.3 10*3/uL 2.0-7.7 [facility] Work Phone: Neutrophils/100 WBC (Bld) 65.0 % 47-70 [facility] Work Phone: WBC (Bld) [#/Vol] 6.6 10*3/uL 4.4-11.0 [facility] Work Phone: Blood erythrocytes count (nu mber/volume)on 10-18-2021 RBC (Bld) [#/Vol] 4.57 10*6/uL 4.6-6.2 [facility] Work Phone: Blood hemoglobin measurement (mass/volume)on 10-18-2021 Hemoglobin (Bld) [Mass/Vol] 14.1 g/dL 13.0-16.5 [facility] Work Phone: Blood lymphocytes/100 leukoc yteson 10-18-2021 Lymphocytes/100 WBC (Bld) 25.2 % 19-41 [facility] Work Phone: Blood monocytes/100 leukocyt eson 10-18-2021 Monocytes/100 WBC (Bld) 8.8 % 0-10 [facility] Work Phone: Blood platelet mean volumeon 10-18-2021 Platelet mean volume (Bld) [Entitic vol] 10.6 fL 6.2-12.0 [facility] Work Phone: Determination of erythrocyte mean corpuscular volume (MCV)on 10-18-2021 MCV (RBC) [Entitic vol] 91.7 fL 80-94 [facility] Work Phone: Hematocrit Auto (Bld) [Volum e fraction]on 10-18-2021 Hematocrit (Bld) [Volume fraction] 41.9 % 40-54 [facility] Work Phone: Laboratory - Hematology and Cell countson 10-18-2021 Erythrocyte distribution width (RBC) [Entitic vol] 41.6 fL 35.1-43.9 [facility] Work Phone: Erythrocyte distribution width (RBC) [Ratio] 12.5 % 11.6-14.6 [facility] Work Phone: Immature granulocytes/100 WBC (Bld) 0.300 % 0.0-0.9 [facility] Work Phone: Comment on above: IG% - Immature Granu locytes (promyelocytes, myelocytes and metamyelocytes) > 1% indicates that a LEFT SHIFT is Present. MCH (RBC) [Entitic mass] 30.9 pg 27.0-32.0 [facility] Work Phone: Nucleated RBC/100 WBC (Bld) [Ratio] 0 % 0-5 [facility] Work Phone: MCHC Auto (RBC) [Mass/Vol]on 10-18-2021 MCHC (RBC) [Mass/Vol] 33.7 g/dL 32-36 [facility] Work Phone: Platelets bldon 10-18-2021 Platelets (Bld) [#/Vol] 185 10*3/uL 150-450 [facility] Work Phone: Absolute lymphocyte counton 10-11-2021 Lymphocytes Auto (Unsp spec) [#/Vol] 1.66 10*3/uL 0.83-4.51 [facility] Work Phone: Basophil percentageon 2021 Basophils/100 WBC (Bld) 0.5 % 0-1 [facility] Work Phone: Eosinophils/100 WBC (Bld) 0.1 % 0-5 [facility] Work Phone: Neutrophils (Bld) [#/Vol] 5.9 10*3/uL 2.0-7.7 [facility] Work Phone: Neutrophils/100 WBC (Bld) 70.8 % 47-70 [facility] Work Phone: WBC (Bld) [#/Vol] 8.3 10*3/uL 4.4-11.0 [facility] Work Phone: [phone] Blood erythrocytes count (nu mber/volume)on 10-11-2021 RBC (Bld) [#/Vol] 4.66 10*6/uL 4.6-6.2 [facility] Work Phone: [phone] Blood hemoglobin measurement (mass/volume)on 10-11-2021 Hemoglobin (Bld) [Mass/Vol] 14.1 g/dL 13.0-16.5 [facility] Work Phone: Blood lymphocytes/100 leukoc yteson 10-11-2021 Lymphocytes/100 WBC (Bld) 20.0 % 19-41 [facility] Work Phone: Blood monocytes/100 leukocyt eson 10-11-2021 Monocytes/100 WBC (Bld) 8.2 % 0-10 [facility] Work Phone: Blood platelet mean volumeon 10-11-2021 Platelet mean volume (Bld) [Entitic vol] 10.7 fL 6.2-12.0 [facility] Work Phone: Determination of erythrocyte mean corpuscular volume (MCV)on 10-11-2021 MCV (RBC) [Entitic vol] 91.8 fL 80-94 [facility] Work Phone: Hematocrit Auto (Bld) [Volum e fraction]on 10-11-2021 Hematocrit (Bld) [Volume fraction] 42.8 % 40-54 [facility] Work Phone: Laboratory - Hematology and Cell countson 10-11-2021 Erythrocyte distribution width (RBC) [Entitic vol] 42.8 fL 35.1-43.9 [facility] Work Phone: Erythrocyte distribution width (RBC) [Ratio] 12.8 % 11.6-14.6 [facility] Work Phone: Immature granulocytes/100 WBC (Bld) 0.400 % 0.0-0.9 [facility] Work Phone: Comment on above: IG% - Immature Granu locytes (promyelocytes, myelocytes and metamyelocytes) > 1% indicates that a LEFT SHIFT is Present. MCH (RBC) [Entitic mass] 30.3 pg 27.0-32.0 [facility] Work Phone: Nucleated RBC/100 WBC (Bld) [Ratio] 0 % 0-5 [facility] Work Phone: MCHC Auto (RBC) [Mass/Vol]on 10-11-2021 MCHC (RBC) [Mass/Vol] 32.9 g/dL 32-36 [facility] Work Phone: [phone] Platelets bldon 10-11-2021 Platelets (Bld) [#/Vol] 193 10*3/uL 150-450 [facility] Work Phone: Absolute lymphocyte counton 10-04-2021 Lymphocytes Auto (Unsp spec) [#/Vol] 1.97 10*3/uL 0.83-4.51 [facility] Work Phone: [phone] Basophil percentageon 2021 Basophils/100 WBC (Bld) 0.5 % 0-1 [facility] Work Phone: [phone] Eosinophils/100 WBC (Bld) 0.1 % 0-5 [facility] Work Phone: [phone] Neutrophils (Bld) [#/Vol] 5.0 10*3/uL 2.0-7.7 [facility] Work Phone: [phone] Neutrophils/100 WBC (Bld) 64.4 % 47-70 [facility] Work Phone: [phone] WBC (Bld) [#/Vol] 7.7 10*3/uL 4.4-11.0 [facility] Work Phone: Blood erythrocytes count (nu mber/volume)on 10-04-2021 RBC (Bld) [#/Vol] 4.52 10*6/uL 4.6-6.2 [facility] Work Phone: [phone] Blood hemoglobin measurement (mass/volume)on 10-04-2021 Hemoglobin (Bld) [Mass/Vol] 13.9 g/dL 13.0-16.5 [facility] Work Phone: [phone] Blood lymphocytes/100 leukoc yteson 10-04-2021 Lymphocytes/100 WBC (Bld) 25.6 % 19-41 [facility] Work Phone: Blood monocytes/100 leukocyt eson 10-04-2021 Monocytes/100 WBC (Bld) 9.0 % 0-10 [facility] Work Phone: Blood platelet mean volumeon 10-04-2021 Platelet mean volume (Bld) [Entitic vol] 11.0 fL 6.2-12.0 [facility] Work Phone: Determination of erythrocyte mean corpuscular volume (MCV)on 10-04-2021 MCV (RBC) [Entitic vol] 91.4 fL 80-94 [facility] Work Phone: Hematocrit Auto (Bld) [Volum e fraction]on 10-04-2021 Hematocrit (Bld) [Volume fraction] 41.3 % 40-54 [facility] Work Phone: Laboratory - Hematology and Cell countson 10-04-2021 Erythrocyte distribution width (RBC) [Entitic vol] 42.2 fL 35.1-43.9 [facility] Work Phone: Erythrocyte distribution width (RBC) [Ratio] 12.8 % 11.6-14.6 [facility] Work Phone: Immature granulocytes/100 WBC (Bld) 0.400 % 0.0-0.9 [facility] Work Phone: Comment on above: IG% - Immature Granu locytes (promyelocytes, myelocytes and metamyelocytes) > 1% indicates that a LEFT SHIFT is Present. MCH (RBC) [Entitic mass] 30.8 pg 27.0-32.0 [facility] Work Phone: Nucleated RBC/100 WBC (Bld) [Ratio] 0 % 0-5 [facility] Work Phone: MCHC Auto (RBC) [Mass/Vol]on 10-04-2021 MCHC (RBC) [Mass/Vol] 33.7 g/dL 32-36 [facility] Work Phone: Platelets bldon 10-04-2021 Platelets (Bld) [#/Vol] 179 10*3/uL 150-450 [facility] Work Phone: [phone] Absolute lymphocyte counton 09-28-2021 Lymphocytes Auto (Unsp spec) [#/Vol] 2.10 10*3/uL 0.83-4.51 [facility] Work Phone: [phone] Basophil percentageon 2021 Basophils/100 WBC (Bld) 0.4 % 0-1 [facility] Work Phone: Eosinophils/100 WBC (Bld) 0.3 % 0-5 [facility] Work Phone: [phone] Neutrophils (Bld) [#/Vol] 4.3 10*3/uL 2.0-7.7 [facility] Work Phone: [phone] Neutrophils/100 WBC (Bld) 59.9 % 47-70 [facility] Work Phone: [phone] WBC (Bld) [#/Vol] 7.2 10*3/uL 4.4-11.0 [facility] Work Phone: Blood erythrocytes count (nu mber/volume)on 09-28-2021 RBC (Bld) [#/Vol] 4.34 10*6/uL 4.6-6.[address] [facility] Work Phone: Blood hemoglobin measurement (mass/volume)on 09-28-2021 Hemoglobin (Bld) [Mass/Vol] 13.3 g/dL 13.0-16.5 [facility] Work Phone: [phone] Blood lymphocytes/100 leukoc yteson 09-28-2021 Lymphocytes/100 WBC (Bld) 29.3 % 19-41 [facility] Work Phone: [phone] Blood monocytes/100 leukocyt eson 09-28-2021 Monocytes/100 WBC (Bld) 9.8 % 0-10 [facility] Work Phone: Blood platelet mean volumeon 09-28-2021 Platelet mean volume (Bld) [Entitic vol] 10.7 fL 6.2-12.0 [facility] Work Phone: Determination of erythrocyte mean corpuscular volume (MCV)on 09-28-2021 MCV (RBC) [Entitic vol] 91.2 fL 80-94 [facility] Work Phone: Hematocrit Auto (Bld) [Volum e fraction]on 09-28-2021 Hematocrit (Bld) [Volume fraction] 39.6 % 40-54 [facility] Work Phone: Laboratory - Hematology and Cell countson 09-28-2021 Erythrocyte distribution width (RBC) [Entitic vol] 41.8 fL 35.1-43.9 [facility] Work Phone: Erythrocyte distribution width (RBC) [Ratio] 12.6 % 11.6-14.6 [facility] Work Phone: Immature granulocytes/100 WBC (Bld) 0.300 % 0.0-0.9 [facility] Work Phone: Comment on above: IG% - Immature Granu locytes (promyelocytes, myelocytes and metamyelocytes) > 1% indicates that a LEFT SHIFT is Present. MCH (RBC) [Entitic mass] 30.6 pg 27.0-32.0 [facility] Work Phone: Nucleated RBC/100 WBC (Bld) [Ratio] 0 % 0-5 [facility] Work Phone: MCHC Auto (RBC) [Mass/Vol]on 09-28-2021 MCHC (RBC) [Mass/Vol] 33.6 g/dL 32-36 [facility] Work Phone: Platelets bldon 09-28-2021 Platelets (Bld) [#/Vol] 181 10*3/uL 150-450 [facility] Work Phone: Absolute lymphocyte counton 09-20-2021 Lymphocytes Auto (Unsp spec) [#/Vol] 1.79 10*3/uL 0.83-4.51 [facility] Work Phone: Basophil percentageon 2021 Basophils/100 WBC (Bld) 0.4 % 0-1 [facility] Work Phone: Eosinophils/100 WBC (Bld) 0.3 % 0-5 [facility] Work Phone: Neutrophils (Bld) [#/Vol] 4.1 10*3/uL 2.0-7.7 [facility] Work Phone: Neutrophils/100 WBC (Bld) 61.3 % 47-70 [facility] Work Phone: WBC (Bld) [#/Vol] 6.7 10*3/uL 4.4-11.0 [facility] Work Phone: Blood erythrocytes count (nu mber/volume)on 09-20-2021 RBC (Bld) [#/Vol] 4.32 10*6/uL 4.6-6.2 [facility] Work Phone: Blood hemoglobin measurement (mass/volume)on 09-20-2021 Hemoglobin (Bld) [Mass/Vol] 13.6 g/dL 13.0-16.5 [facility] Work Phone: Blood lymphocytes/100 leukoc yteson 09-20-2021 Lymphocytes/100 WBC (Bld) 26.8 % 19-41 [facility] Work Phone: Blood monocytes/100 leukocyt eson 09-20-2021 Monocytes/100 WBC (Bld) 10.8 % 0-10 [facility] Work Phone: Blood platelet mean volumeon 09-20-2021 Platelet mean volume (Bld) [Entitic vol] 10.7 fL 6.2-12.0 [facility] Work Phone: Determination of erythrocyte mean corpuscular volume (MCV)on 09-20-2021 MCV (RBC) [Entitic vol] 93.1 fL 80-94 [facility] Work Phone: Hematocrit Auto (Bld) [Volum e fraction]on 09-20-2021 Hematocrit (Bld) [Volume fraction] 40.2 % 40-54 [facility] Work Phone: Laboratory - Hematology and Cell countson 09-20-2021 Erythrocyte distribution width (RBC) [Entitic vol] 43.0 fL 35.1-43.9 [facility] Work Phone: Erythrocyte distribution width (RBC) [Ratio] 12.6 % 11.6-14.6 [facility] Work Phone: Immature granulocytes/100 WBC (Bld) 0.400 % 0.0-0.9 [facility] Work Phone: Comment on above: IG% - Immature Granu locytes (promyelocytes, myelocytes and metamyelocytes) > 1% indicates that a LEFT SHIFT is Present. MCH (RBC) [Entitic mass] 31.5 pg 27.0-32.0 [facility] Work Phone: Nucleated RBC/100 WBC (Bld) [Ratio] 0 % 0-5 [facility] Work Phone: MCHC Auto (RBC) [Mass/Vol]on 09-20-2021 MCHC (RBC) [Mass/Vol] 33.8 g/dL 32-36 [facility] Work Phone: Platelets bldon 09-20-2021 Platelets (Bld) [#/Vol] 170 10*3/uL 150-450 [facility] Work Phone: Absolute lymphocyte counton 09-13-2021 Lymphocytes Auto (Unsp spec) [#/Vol] 1.85 10*3/uL 0.83-4.51 [facility] Work Phone: Basophil percentageon 2021 Basophils/100 WBC (Bld) 0.6 % 0-1 [facility] Work Phone: Eosinophils/100 WBC (Bld) 0.3 % 0-5 [facility] Work Phone: Neutrophils (Bld) [#/Vol] 4.3 10*3/uL 2.0-7.7 [facility] Work Phone: Neutrophils/100 WBC (Bld) 63.1 % 47-70 [facility] Work Phone: WBC (Bld) [#/Vol] 6.7 10*3/uL 4.4-11.0 [facility] Work Phone: Blood erythrocytes count (nu mber/volume)on 09-13-2021 RBC (Bld) [#/Vol] 4.63 10*6/uL 4.6-6.2 [facility] Work Phone: Blood hemoglobin measurement (mass/volume)on 09-13-2021 Hemoglobin (Bld) [Mass/Vol] 14.2 g/dL 13.0-16.5 [facility] Work Phone: Blood lymphocytes/100 leukoc yteson 09-13-2021 Lymphocytes/100 WBC (Bld) 27.5 % 19-41 [facility] Work Phone: Blood monocytes/100 leukocyt eson 09-13-2021 Monocytes/100 WBC (Bld) 8.2 % 0-10 [facility] Work Phone: Blood platelet mean volumeon 09-13-2021 Platelet mean volume (Bld) [Entitic vol] 11.0 fL 6.2-12.0 [facility] Work Phone: Determination of erythrocyte mean corpuscular volume (MCV)on 09-13-2021 MCV (RBC) [Entitic vol] 93.5 fL 80-94 [facility] Work Phone: Hematocrit Auto (Bld) [Volum e fraction]on 09-13-2021 Hematocrit (Bld) [Volume fraction] 43.3 % 40-54 [facility] Work Phone: Laboratory - Hematology and Cell countson 09-13-2021 Erythrocyte distribution width (RBC) [Entitic vol] 43.0 fL 35.1-43.9 [facility] Work Phone: Erythrocyte distribution width (RBC) [Ratio] 12.6 % 11.6-14.6 [facility] Work Phone: Immature granulocytes/100 WBC (Bld) 0.300 % 0.0-0.9 [facility] Work Phone: Comment on above: IG% - Immature Granu locytes (promyelocytes, myelocytes and metamyelocytes) > 1% indicates that a LEFT SHIFT is Present. MCH (RBC) [Entitic mass] 30.7 pg 27.0-32.0 [facility] Work Phone: Nucleated RBC/100 WBC (Bld) [Ratio] 0 % 0-5 [facility] Work Phone: MCHC Auto (RBC) [Mass/Vol]on 09-13-2021 MCHC (RBC) [Mass/Vol] 32.8 g/dL 32-36 [facility] Work Phone: Platelets bldon 09-13-2021 Platelets (Bld) [#/Vol] 188 10*3/uL 150-450 [facility] Work Phone: Absolute lymphocyte counton 09-06-2021 Lymphocytes Auto (Unsp spec) [#/Vol] 1.86 10*3/uL 0.83-4.51 [facility] Work Phone: Basophil percentageon 2021 Basophils/100 WBC (Bld) 0.7 % 0-1 [facility] Work Phone: Eosinophils/100 WBC (Bld) 0.3 % 0-5 [facility] Work Phone: Neutrophils (Bld) [#/Vol] 4.4 10*3/uL 2.0-7.7 [facility] Work Phone: Neutrophils/100 WBC (Bld) 62.6 % 47-70 [facility] Work Phone: WBC (Bld) [#/Vol] 7.0 10*3/uL 4.4-11.0 [facility] Work Phone: Blood erythrocytes count (nu mber/volume)on 09-06-2021 RBC (Bld) [#/Vol] 4.51 10*6/uL 4.6-6.2 [facility] Work Phone: Blood hemoglobin measurement (mass/volume)on 09-06-2021 Hemoglobin (Bld) [Mass/Vol] 13.8 g/dL 13.0-16.5 [facility] Work Phone: Blood lymphocytes/100 leukoc yteson 09-06-2021 Lymphocytes/100 WBC (Bld) 26.5 % 19-41 [facility] Work Phone: Blood monocytes/100 leukocyt eson 09-06-2021 Monocytes/100 WBC (Bld) 9.5 % 0-10 [facility] Work Phone: Blood platelet mean volumeon 09-06-2021 Platelet mean volume (Bld) [Entitic vol] 10.7 fL 6.2-12.0 [facility] Work Phone: Determination of erythrocyte mean corpuscular volume (MCV)on 09-06-2021 MCV (RBC) [Entitic vol] 92.9 fL 80-94 [facility] Work Phone: Hematocrit Auto (Bld) [Volum e fraction]on 09-06-2021 Hematocrit (Bld) [Volume fraction] 41.9 % 40-54 [facility] Work Phone: Laboratory - Hematology and Cell countson 09-06-2021 Erythrocyte distribution width (RBC) [Entitic vol] 43.0 fL 35.1-43.9 [facility] Work Phone: Erythrocyte distribution width (RBC) [Ratio] 12.7 % 11.6-14.6 [facility] Work Phone: Immature granulocytes/100 WBC (Bld) 0.400 % 0.0-0.9 [facility] Work Phone: Comment on above: IG% - Immature Granu locytes (promyelocytes, myelocytes and metamyelocytes) > 1% indicates that a LEFT SHIFT is Present. MCH (RBC) [Entitic mass] 30.6 pg 27.0-32.0 [facility] Work Phone: Nucleated RBC/100 WBC (Bld) [Ratio] 0 % 0-5 [facility] Work Phone: MCHC Auto (RBC) [Mass/Vol]on 09-06-2021 MCHC (RBC) [Mass/Vol] 32.9 g/dL 32-36 [facility] Work Phone: Platelets bldon 09-06-2021 Platelets (Bld) [#/Vol] 189 10*3/uL 150-450 [facility] Work Phone: [phone] Absolute lymphocyte counton 08-30-2021 Lymphocytes Auto (Unsp spec) [#/Vol] 1.44 10*3/uL 0.83-4.51 [facility] Work Phone: Basophil percentageon 2021 Basophils/100 WBC (Bld) 0.3 % 0-1 [facility] Work Phone: Eosinophils/100 WBC (Bld) 0.2 % 0-5 [facility] Work Phone: Neutrophils (Bld) [#/Vol] 9.6 10*3/uL 2.0-7.7 [facility] Work Phone: Neutrophils/100 WBC (Bld) 80.4 % 47-70 [facility] Work Phone: WBC (Bld) [#/Vol] 12.0 10*3/uL 4.4-11.[address] [facility] Work Phone: Blood erythrocytes count (nu mber/volume)on 08-30-2021 RBC (Bld) [#/Vol] 4.52 10*6/uL 4.6-6.[address] [facility] Work Phone: Blood hemoglobin measurement (mass/volume)on 08-30-2021 Hemoglobin (Bld) [Mass/Vol] 13.9 g/dL 13.0-16.5 [facility] Work Phone: Blood lymphocytes/100 leukoc yteson 08-30-2021 Lymphocytes/100 WBC (Bld) 12.0 % 19-41 [facility] Work Phone: Blood monocytes/100 leukocyt eson 08-30-2021 Monocytes/100 WBC (Bld) 6.7 % 0-10 [facility] Work Phone: Blood platelet mean volumeon 08-30-2021 Platelet mean volume (Bld) [Entitic vol] 11.3 fL 6.2-12.0 [facility] Work Phone: Determination of erythrocyte mean corpuscular volume (MCV)on 08-30-2021 MCV (RBC) [Entitic vol] 92.7 fL 80-94 [facility] Work Phone: Hematocrit Auto (Bld) [Volum e fraction]on 08-30-2021 Hematocrit (Bld) [Volume fraction] 41.9 % 40-54 [facility] Work Phone: Laboratory - Hematology and Cell countson 08-30-2021 Erythrocyte distribution width (RBC) [Entitic vol] 42.6 fL 35.1-43.9 [facility] Work Phone: Erythrocyte distribution width (RBC) [Ratio] 12.6 % 11.6-14.6 [facility] Work Phone: Immature granulocytes/100 WBC (Bld) 0.400 % 0.0-0.9 [facility] Work Phone: Comment on above: IG% - Immature Granu locytes (promyelocytes, myelocytes and metamyelocytes) > 1% indicates that a LEFT SHIFT is Present. MCH (RBC) [Entitic mass] 30.8 pg 27.0-32.0 [facility] Work Phone: Nucleated RBC/100 WBC (Bld) [Ratio] 0 % 0-5 [facility] Work Phone: [phone] MCHC Auto (RBC) [Mass/Vol]on 08-30-2021 MCHC (RBC) [Mass/Vol] 33.2 g/dL 32-36 [facility] Work Phone: Platelets bldon 08-30-2021 Platelets (Bld) [#/Vol] 200 10*3/uL 150-450 [facility] Work Phone: Absolute lymphocyte counton 08-23-2021 Lymphocytes Auto (Unsp spec) [#/Vol] 1.91 10*3/uL 0.83-4.51 [facility] Work Phone: Basophil percentageon 2021 Basophils/100 WBC (Bld) 0.4 % 0-1 [facility] Work Phone: Eosinophils/100 WBC (Bld) 0.3 % 0-5 [facility] Work Phone: Neutrophils (Bld) [#/Vol] 4.2 10*3/uL 2.0-7.7 [facility] Work Phone: Neutrophils/100 WBC (Bld) 62.3 % 47-70 [facility] Work Phone: WBC (Bld) [#/Vol] 6.8 10*3/uL 4.4-11.0 [facility] Work Phone: Blood erythrocytes count (nu mber/volume)on 08-23-2021 RBC (Bld) [#/Vol] 4.46 10*6/uL 4.6-6.[address] [facility] Work Phone: Blood hemoglobin measurement (mass/volume)on 08-23-2021 Hemoglobin (Bld) [Mass/Vol] 13.7 g/dL 13.0-16.5 [facility] Work Phone: Blood lymphocytes/100 leukoc yteson 08-23-2021 Lymphocytes/100 WBC (Bld) 28.3 % 19-41 [facility] Work Phone: Blood monocytes/100 leukocyt eson 08-23-2021 Monocytes/100 WBC (Bld) 8.1 % 0-10 [facility] Work Phone: Blood platelet mean volumeon 08-23-2021 Platelet mean volume (Bld) [Entitic vol] 10.6 fL 6.2-12.0 [facility] Work Phone: Determination of erythrocyte mean corpuscular volume (MCV)on 08-23-2021 MCV (RBC) [Entitic vol] 93.0 fL 80-94 [facility] Work Phone: Hematocrit Auto (Bld) [Volum e fraction]on 08-23-2021 Hematocrit (Bld) [Volume fraction] 41.5 % 40-54 [facility] Work Phone: Laboratory - Hematology and Cell countson 08-23-2021 Erythrocyte distribution width (RBC) [Entitic vol] 42.4 fL 35.1-43.9 [facility] Work Phone: Erythrocyte distribution width (RBC) [Ratio] 12.5 % 11.6-14.6 [facility] Work Phone: Immature granulocytes/100 WBC (Bld) 0.600 % 0.0-0.9 [facility] Work Phone: Comment on above: IG% - Immature Granu locytes (promyelocytes, myelocytes and metamyelocytes) > 1% indicates that a LEFT SHIFT is Present. MCH (RBC) [Entitic mass] 30.7 pg 27.0-32.0 [facility] Work Phone: Nucleated RBC/100 WBC (Bld) [Ratio] 0 % 0-5 [facility] Work Phone: MCHC Auto (RBC) [Mass/Vol]on 08-23-2021 MCHC (RBC) [Mass/Vol] 33.0 g/dL 32-36 [facility] Work [facility]: Platelets bldon 08-23-2021 Platelets (Bld) [#/Vol] 198 10*3/uL 150-450 [facility] Work Phone: Basophil percentageon 2021 Basophil percentage 0 SEEN /hpf 0-5 [facility] Work Phone: Bilirubin Test strip Ql (U)o n 08-18-2021 Bilirubin Ql (U) Negative Negative [facility] Work Phone: Culture, urineon 08-18-2021 Bacteria identified Cx Nom (U) Culture exhibits no growth. [facility] Work Phone: Ketones Test strip Ql (U)on 08-18-2021 Ketones Ql (U) Negative Negative [facility] Work Phone: Mucus LM Ql (Urine sed)on Mucus Ql (Urine sed) 0 SEEN /hpf [facility] Work Phone: Nitrite Test strip Ql (U)on 08-18-2021 Nitrite Ql (U) Negative Negative [facility] Work Phone: Protein Test strip Ql (U)on 08-18-2021 Protein Ql (U) Negative Negative [facility] Work Phone: Squamous epithelial cells de tection in urine sediment by light microscopyon 08-18-2021 Epithelial cells.squamous LM Ql (Urine sed) 0 SEEN /hpf 0-5 [facility] Work Phone: Urine blood detectionon - RBC Ql (U) Negative Negative [facility] Work Phone: RBC Ql (U) 0 SEEN /hpf 0-5 [facility] Work Phone: Urine clarityon 08-18-2021 Clarity (U) Clear Clear [facility] Work Phone: Urine color determinationon 08-18-2021 Color (U) Yellow Yellow [facility] Work Phone: Urine glucose detectionon Glucose Ql (U) Normal mg/dl Normal [facility] Work Phone: Urine leukocyte esterase det ection by dipstickon 08-18-2021 Leukocyte esterase Test strip Ql (U) Negative Negative [facility] Work Phone: Urine pHon 08-18-2021 pH (U) 7.0 [pH] 5.0 - 8.0 [facility] Work Phone: Urine sediment bacteria coun t by microscopy (number/high power field)on 08-18-2021 Bacteria LM.HPF (Urine sed) [#/Area] 0 /[HPF] None Seen [facility] Work Phone: Urine specific gravity measu rementon 08-18-2021 Specific gravity (U) [Rel density] 1.010 1.002-1.030 [facility] Work Phone: Urobilinogen Auto test strip Ql (U)on 08-18-2021 Urobilinogen Ql (U) 4 mg/dl Normal [facility] Work Phone: [phone] Absolute lymphocyte counton 08-16-2021 Lymphocytes Auto (Unsp spec) [#/Vol] 1.71 10*3/uL 0.83-4.51 [facility] Work Phone: Basophil percentageon 2021 Basophils/100 WBC (Bld) 0.3 % 0-1 [facility] Work Phone: Eosinophils/100 WBC (Bld) 0.2 % 0-5 [facility] Work Phone: Neutrophils (Bld) [#/Vol] 8.6 10*3/uL 2.0-7.7 [facility] Work Phone: Neutrophils/100 WBC (Bld) 76.8 % 47-70 [facility] Work Phone: WBC (Bld) [#/Vol] 11.2 10*3/uL 4.4-11.[address] [facility] Work Phone: Blood erythrocytes count (nu mber/volume)on 08-16-2021 RBC (Bld) [#/Vol] 4.42 10*6/uL 4.6-6.[address] [facility] Work Phone: Blood hemoglobin measurement (mass/volume)on 08-16-2021 Hemoglobin (Bld) [Mass/Vol] 13.4 g/dL 13.0-16.5 [facility] Work Phone: Blood lymphocytes/100 leukoc yteson 08-16-2021 Lymphocytes/100 WBC (Bld) 15.2 % 19-41 [facility] Work Phone: Blood monocytes/100 leukocyt eson 08-16-2021 Monocytes/100 WBC (Bld) 7.1 % 0-10 [facility] Work Phone: Blood platelet mean volumeon 08-16-2021 Platelet mean volume (Bld) [Entitic vol] 11.0 fL 6.2-12.0 [facility] Work Phone: Determination of erythrocyte mean corpuscular volume (MCV)on 08-16-2021 MCV (RBC) [Entitic vol] 91.9 fL 80-94 [facility] Work Phone: Hematocrit Auto (Bld) [Volum e fraction]on 08-16-2021 Hematocrit (Bld) [Volume fraction] 40.6 % 40-54 [facility] Work Phone: Laboratory - Hematology and Cell countson 08-16-2021 Erythrocyte distribution width (RBC) [Entitic vol] 43.0 fL 35.1-43.9 [facility] Work Phone: Erythrocyte distribution width (RBC) [Ratio] 12.7 % 11.6-14.6 [facility] Work Phone: Immature granulocytes/100 WBC (Bld) 0.400 % 0.0-0.9 [facility] Work Phone: Comment on above: IG% - Immature Granu locytes (promyelocytes, myelocytes and metamyelocytes) > 1% indicates that a LEFT SHIFT is Present. MCH (RBC) [Entitic mass] 30.3 pg 27.0-32.0 [facility] Work Phone: Nucleated RBC/100 WBC (Bld) [Ratio] 0 % 0-5 [facility] Work Phone: MCHC Auto (RBC) [Mass/Vol]on 08-16-2021 MCHC (RBC) [Mass/Vol] 33.0 g/dL 32-36 [facility] Work Phone: Platelets bldon 08-16-2021 Platelets (Bld) [#/Vol] 187 10*3/uL 150-450 [facility] Work Phone: Absolute lymphocyte counton 08-09-2021 Lymphocytes Auto (Unsp spec) [#/Vol] 1.78 10*3/uL 0.83-4.51 [facility] Work Phone: Basophil percentageon 2021 Basophils/100 WBC (Bld) 0.5 % 0-1 [facility] Work Phone: Eosinophils/100 WBC (Bld) 0.1 % 0-5 [facility] Work Phone: Neutrophils (Bld) [#/Vol] 6.0 10*3/uL 2.0-7.7 [facility] Work Phone: Neutrophils/100 WBC (Bld) 71.3 % 47-70 [facility] Work Phone: WBC (Bld) [#/Vol] 8.4 10*3/uL 4.4-11.0 [facility] Work Phone: [phone] Blood erythrocytes count (nu mber/volume)on 08-09-2021 RBC (Bld) [#/Vol] 4.37 10*6/uL 4.6-6.2 [facility] Work Phone: [phone] Blood hemoglobin measurement (mass/volume)on 08-09-2021 Hemoglobin (Bld) [Mass/Vol] 13.5 g/dL 13.0-16.5 [facility] Work Phone: Blood lymphocytes/100 leukoc yteson 08-09-2021 Lymphocytes/100 WBC (Bld) 21.2 % 19-41 [facility] Work Phone: Blood monocytes/100 leukocyt eson 08-09-2021 Monocytes/100 WBC (Bld) 6.5 % 0-10 [facility] Work Phone: Blood platelet mean volumeon 08-09-2021 Platelet mean volume (Bld) [Entitic vol] 11.1 fL 6.2-12.0 [facility] Work Phone: Determination of erythrocyte mean corpuscular volume (MCV)on 08-09-2021 MCV (RBC) [Entitic vol] 91.3 fL 80-94 [facility] Work Phone: Hematocrit Auto (Bld) [Volum e fraction]on 08-09-2021 Hematocrit (Bld) [Volume fraction] 39.9 % 40-54 [facility] Work Phone: Laboratory - Hematology and Cell countson 08-09-2021 Erythrocyte distribution width (RBC) [Entitic vol] 41.4 fL 35.1-43.9 [facility] Work Phone: Erythrocyte distribution width (RBC) [Ratio] 12.5 % 11.6-14.6 [facility] Work Phone: Immature granulocytes/100 WBC (Bld) 0.400 % 0.0-0.9 [facility] Work Phone: Comment on above: IG% - Immature Granu locytes (promyelocytes, myelocytes and metamyelocytes) > 1% indicates that a LEFT SHIFT is Present. MCH (RBC) [Entitic mass] 30.9 pg 27.0-32.0 [facility] Work Phone: Nucleated RBC/100 WBC (Bld) [Ratio] 0 % 0-5 [facility] Work Phone: MCHC Auto (RBC) [Mass/Vol]on 08-09-2021 MCHC (RBC) [Mass/Vol] 33.8 g/dL 32-36 [facility] Work Phone: Platelets bldon 08-09-2021 Platelets (Bld) [#/Vol] 177 10*3/uL 150-450 [facility] Work Phone: Absolute lymphocyte counton 08-02-2021 Lymphocytes Auto (Unsp spec) [#/Vol] 1.69 10*3/uL 0.83-4.51 [facility] Work Phone: Basophil percentageon 2021 Basophils/100 WBC (Bld) 0.3 % 0-1 [facility] Work Phone: Eosinophils/100 WBC (Bld) 0.3 % 0-5 [facility] Work Phone: Neutrophils (Bld) [#/Vol] 3.8 10*3/uL 2.0-7.7 [facility] Work Phone: Neutrophils/100 WBC (Bld) 61.9 % 47-70 [facility] Work Phone: [phone] WBC (Bld) [#/Vol] 6.1 10*3/uL 4.4-11.0 [facility]: Blood erythrocytes count (nu mber/volume)on 08-02-2021 RBC (Bld) [#/Vol] 4.54 10*6/uL 4.6-6.2 [facility]: Blood hemoglobin measurement (mass/volume)on 08-02-2021 Hemoglobin (Bld) [Mass/Vol] 13.8 g/dL 13.0-16.5 [facility] Work Phone: [phone] Blood lymphocytes/100 leukoc yteson 08-02-2021 Lymphocytes/100 WBC (Bld) 27.7 % 19-41 [facility] Work Phone: Blood monocytes/100 leukocyt eson 08-02-2021 Monocytes/100 WBC (Bld) 9.5 % 0-10 [facility] Work Phone: Blood platelet mean volumeon 08-02-2021 Platelet mean volume (Bld) [Entitic vol] 11.2 fL 6.2-12.0 [facility] Work Phone: Determination of erythrocyte mean corpuscular volume (MCV)on 08-02-2021 MCV (RBC) [Entitic vol] 90.1 fL 80-94 [facility] Work Phone: Hematocrit Auto (Bld) [Volum e fraction]on 08-02-2021 Hematocrit (Bld) [Volume fraction] 40.9 % 40-54 [facility] Work Phone: Laboratory - Hematology and Cell countson 08-02-2021 Erythrocyte distribution width (RBC) [Entitic vol] 40.3 fL 35.1-43.9 [facility] Work Phone: Erythrocyte distribution width (RBC) [Ratio] 12.4 % 11.6-14.6 [facility] Work Phone: Immature granulocytes/100 WBC (Bld) 0.300 % 0.0-0.9 [facility] Work Phone: [phone] Comment on above: IG% - Immature Granu locytes (promyelocytes, myelocytes and metamyelocytes) > 1% indicates that a LEFT SHIFT is Present. MCH (RBC) [Entitic mass] 30.4 pg 27.0-32.0 [facility] Work Phone: Nucleated RBC/100 WBC (Bld) [Ratio] 0 % 0-5 [facility] Work Phone: MCHC Auto (RBC) [Mass/Vol]on 08-02-2021 MCHC (RBC) [Mass/Vol] 33.7 g/dL 32-36 [facility] Work Phone: Platelets bldon 08-02-2021 Platelets (Bld) [#/Vol] 192 10*3/uL 150-450 [facility] Work Phone: Absolute lymphocyte counton 07-26-2021 Lymphocytes Auto (Unsp spec) [#/Vol] 1.83 10*3/uL 0.83-4.51 [facility] Work Phone: Basophil percentageon 2021 Basophils/100 WBC (Bld) 0.5 % 0-1 [facility] Work Phone: [phone] Eosinophils/100 WBC (Bld) 0.3 % 0-5 [facility] Work Phone: [phone] Neutrophils (Bld) [#/Vol] 3.3 10*3/uL 2.0-7.7 [facility] Work Phone: [phone] Neutrophils/100 WBC (Bld) 58.1 % 47-70 [facility] Work Phone: WBC (Bld) [#/Vol] 5.7 10*3/uL 4.4-11.0 [facility] Work Phone: Blood erythrocytes count (nu mber/volume)on 07-26-2021 RBC (Bld) [#/Vol] 4.21 10*6/uL 4.6-6.[address] [facility] Work Phone: Blood hemoglobin measurement (mass/volume)on 07-26-2021 Hemoglobin (Bld) [Mass/Vol] 12.9 g/dL 13.0-16.5 [facility] Work Phone: [phone] Blood lymphocytes/100 leukoc yteson 07-26-2021 Lymphocytes/100 WBC (Bld) 31.9 % 19-41 [facility] Work Phone: [phone] Blood monocytes/100 leukocyt eson 07-26-2021 Monocytes/100 WBC (Bld) 8.9 % 0-10 [facility] Work Phone: Blood platelet mean volumeon 07-26-2021 Platelet mean volume (Bld) [Entitic vol] 11.5 fL 6.2-12.0 [facility] Work Phone: Determination of erythrocyte mean corpuscular volume (MCV)on 07-26-2021 MCV (RBC) [Entitic vol] 90.7 fL 80-94 [facility] Work Phone: Hematocrit Auto (Bld) [Volum e fraction]on 07-26-2021 Hematocrit (Bld) [Volume fraction] 38.2 % 40-54 [facility] Work Phone: Laboratory - Hematology and Cell countson 07-26-2021 Erythrocyte distribution width (RBC) [Entitic vol] 41.2 fL 35.1-43.9 [facility] Work Phone: Erythrocyte distribution width (RBC) [Ratio] 12.5 % 11.6-14.6 [facility] Work Phone: Immature granulocytes/100 WBC (Bld) 0.300 % 0.0-0.9 [facility] Work Phone: Comment on above: IG% - Immature Granu locytes (promyelocytes, myelocytes and metamyelocytes) > 1% indicates that a LEFT SHIFT is Present. MCH (RBC) [Entitic mass] 30.6 pg 27.0-32.0 [facility] Work Phone: Nucleated RBC/100 WBC (Bld) [Ratio] 0 % 0-5 [facility] Work Phone: MCHC Auto (RBC) [Mass/Vol]on 07-26-2021 MCHC (RBC) [Mass/Vol] 33.8 g/dL 32-36 [facility] Work Phone: Platelets bldon 07-26-2021 Platelets (Bld) [#/Vol] 180 10*3/uL 150-450 [facility] Work Phone: Absolute lymphocyte counton 07-19-2021 Lymphocytes Auto (Unsp spec) [#/Vol] 2.04 10*3/uL 0.83-4.51 [facility] Work Phone: Basophil percentageon 2021 Basophils/100 WBC (Bld) 0.3 % 0-1 [facility] Work Phone: Eosinophils/100 WBC (Bld) 0.4 % 0-5 [facility] Work Phone: Neutrophils (Bld) [#/Vol] 4.0 10*3/uL 2.0-7.7 [facility] Work Phone: Neutrophils/100 WBC (Bld) 59.2 % 47-70 [facility] Work Phone: WBC (Bld) [#/Vol] 6.7 10*3/uL 4.4-11.0 [facility] Work Phone: Blood erythrocytes count (nu mber/volume)on 07-19-2021 RBC (Bld) [#/Vol] 4.53 10*6/uL 4.6-6.2 [facility] Work Phone: Blood hemoglobin measurement (mass/volume)on 07-19-2021 Hemoglobin (Bld) [Mass/Vol] 14.1 g/dL 13.0-16.5 [facility] Work Phone: Blood lymphocytes/100 leukoc yteson 07-19-2021 Lymphocytes/100 WBC (Bld) 30.5 % 19-41 [facility] Work Phone: Blood monocytes/100 leukocyt eson 07-19-2021 Monocytes/100 WBC (Bld) 9.0 % 0-10 [facility] Work Phone: Blood platelet mean volumeon 07-19-2021 Platelet mean volume (Bld) [Entitic vol] 11.4 fL 6.2-12.0 [facility] Work Phone: Determination of erythrocyte mean corpuscular volume (MCV)on 07-19-2021 MCV (RBC) [Entitic vol] 90.5 fL 80-94 [facility] Work Phone: Hematocrit Auto (Bld) [Volum e fraction]on 07-19-2021 Hematocrit (Bld) [Volume fraction] 41.0 % 40-54 [facility] Work Phone: Laboratory - Hematology and Cell countson 07-19-2021 Erythrocyte distribution width (RBC) [Entitic vol] 41.1 fL 35.1-43.9 [facility] Work Phone: Erythrocyte distribution width (RBC) [Ratio] 12.5 % 11.6-14.6 [facility] Work Phone: Immature granulocytes/100 WBC (Bld) 0.600 % 0.0-0.9 [facility] Work Phone: Comment on above: IG% - Immature Granu locytes (promyelocytes, myelocytes and metamyelocytes) > 1% indicates that a LEFT SHIFT is Present. MCH (RBC) [Entitic mass] 31.1 pg 27.0-32.0 [facility] Work Phone: Nucleated RBC/100 WBC (Bld) [Ratio] 0 % 0-5 [facility] Work Phone: MCHC Auto (RBC) [Mass/Vol]on 07-19-2021 MCHC (RBC) [Mass/Vol] 34.4 g/dL 32-36 [facility] Work Phone: Platelets bldon 07-19-2021 Platelets (Bld) [#/Vol] 193 10*3/uL 150-450 [facility] Work Phone: Absolute lymphocyte counton 07-12-2021 Lymphocytes Auto (Unsp spec) [#/Vol] 1.42 10*3/uL 0.83-4.51 [facility] Work Phone: Basophil percentageon 2021 Basophils/100 WBC (Bld) 0.6 % 0-1 [facility] Work Phone: [phone] Eosinophils/100 WBC (Bld) 0.3 % 0-5 [facility] Work Phone: Neutrophils (Bld) [#/Vol] 4.7 10*3/uL 2.0-7.7 [facility] Work Phone: Neutrophils/100 WBC (Bld) 67.3 % 47-70 [facility] Work Phone: WBC (Bld) [#/Vol] 7.0 10*3/uL 4.4-11.0 [facility] Work Phone: Blood erythrocytes count (nu mber/volume)on 07-12-2021 RBC (Bld) [#/Vol] 4.61 10*6/uL 4.6-6.[address] [facility] Work Phone: Blood hemoglobin measurement (mass/volume)on 07-12-2021 Hemoglobin (Bld) [Mass/Vol] 14.4 g/dL 13.0-16.5 [facility] Work Phone: Blood lymphocytes/100 leukoc yteson 07-12-2021 Lymphocytes/100 WBC (Bld) 20.4 % 19-41 [facility] Work Phone: Blood monocytes/100 leukocyt eson 07-12-2021 Monocytes/100 WBC (Bld) 11.1 % 0-10 [facility] Work Phone: Blood platelet mean volumeon 07-12-2021 Platelet mean volume (Bld) [Entitic vol] 11.2 fL 6.2-12.0 [facility] Work Phone: Determination of erythrocyte mean corpuscular volume (MCV)on 07-12-2021 MCV (RBC) [Entitic vol] 91.1 fL 80-94 [facility] Work Phone: Hematocrit Auto (Bld) [Volum e fraction]on 07-12-2021 Hematocrit (Bld) [Volume fraction] 42.0 % 40-54 [facility] Work Phone: Laboratory - Hematology and Cell countson 07-12-2021 Erythrocyte distribution width (RBC) [Entitic vol] 41.4 fL 35.1-43.9 [facility] Work Phone: Erythrocyte distribution width (RBC) [Ratio] 12.6 % 11.6-14.6 [facility] Work Phone: Immature granulocytes/100 WBC (Bld) 0.300 % 0.0-0.9 [facility] Work Phone: Comment on above: IG% - Immature Granu locytes (promyelocytes, myelocytes and metamyelocytes) > 1% indicates that a LEFT SHIFT is Present. MCH (RBC) [Entitic mass] 31.2 pg 27.0-32.0 [facility] Work Phone: Nucleated RBC/100 WBC (Bld) [Ratio] 0 % 0-5 [facility] Work Phone: MCHC Auto (RBC) [Mass/Vol]on 07-12-2021 MCHC (RBC) [Mass/Vol] 34.3 g/dL 32-36 [facility] Work Phone: Platelets bldon 07-12-2021 Platelets (Bld) [#/Vol] 184 10*3/uL 150-450 [facility] Work Phone: Absolute lymphocyte counton 07-05-2021 Lymphocytes Auto (Unsp spec) [#/Vol] 1.55 10*3/uL 0.83-4.51 [facility] Work Phone: Basophil percentageon 2021 Basophils/100 WBC (Bld) 0.4 % 0-1 [facility] Work Phone: Cholesterol [Mass/Vol] 148 mg/dL <200 [facility] Work Phone: Comment on above: <200 mg/dL Desirable 200-240 mg/dL Borderline >240 mg/dL High Risk Eosinophils/100 WBC (Bld) 0.3 % 0-5 [facility] Work Phone: Neutrophils (Bld) [#/Vol] 5.5 10*3/uL 2.0-7.7 [facility] Work Phone: Neutrophils/100 WBC (Bld) 70.9 % 47-70 [facility] Work Phone: Triglyceride [Mass/Vol] 201 mg/dL <199 [facility] Work Phone: Comment on above: The drugs N-Acetylcy steine and Metamizole may falsely depress this assay.Serum Triglycerides Reference Interval Normal <150 mg/dL Borderline high 150 - 199 mg/dL High 200 - 499 mg/dL Very High > or = 500 mg/dL WBC (Bld) [#/Vol] 7.8 10*3/uL 4.4-11.0 [facility] Work Phone: Blood erythrocytes count (nu mber/volume)on 07-05-2021 RBC (Bld) [#/Vol] 4.46 10*6/uL 4.6-6.[address] [facility] Work Phone: Blood hemoglobin measurement (mass/volume)on 07-05-2021 Hemoglobin (Bld) [Mass/Vol] 13.4 g/dL 13.0-16.5 [facility] Work Phone: Blood lymphocytes/100 leukoc yteson 07-05-2021 Lymphocytes/100 WBC (Bld) 20.0 % 19-41 [facility] Work Phone: Blood monocytes/100 leukocyt eson 07-05-2021 Monocytes/100 WBC (Bld) 8.1 % 0-10 [facility] Work Phone: Blood platelet mean volumeon 07-05-2021 Platelet mean volume (Bld) [Entitic vol] 11.7 fL 6.2-12.0 [facility] Work Phone: Determination of erythrocyte mean corpuscular volume (MCV)on 07-05-2021 MCV (RBC) [Entitic vol] 91.0 fL 80-94 [facility] Work Phone: Hematocrit Auto (Bld) [Volum e fraction]on 07-05-2021 Hematocrit (Bld) [Volume fraction] 40.6 % 40-54 [facility] Work Phone: Laboratory - Hematology and Cell countson 07-05-2021 Erythrocyte distribution width (RBC) [Entitic vol] 41.9 fL 35.1-43.9 [facility] Work Phone: Erythrocyte distribution width (RBC) [Ratio] 12.8 % 11.6-14.6 [facility] Work Phone: Immature granulocytes/100 WBC (Bld) 0.300 % 0.0-0.9 [facility] Work Phone: Comment on above: IG% - Immature Granu locytes (promyelocytes, myelocytes and metamyelocytes) > 1% indicates that a LEFT SHIFT is Present. MCH (RBC) [Entitic mass] 30.0 pg 27.0-32.0 [facility] Work Phone: Nucleated RBC/100 WBC (Bld) [Ratio] 0 % 0-5 [facility] Work Phone: MCHC Auto (RBC) [Mass/Vol]on 07-05-2021 MCHC (RBC) [Mass/Vol] 33.0 g/dL 32-36 [facility] Work Phone: Platelets bldon 07-05-2021 Platelets (Bld) [#/Vol] 186 10*3/uL 150-450 [facility] Work Phone: Serum or plasma cholesterol in HDL measurement (mass/volume)on 07-05-2021 Cholesterol in HDL [Mass/Vol] 30 mg/dL >40 [facility] Work Phone: Comment on above: The drugs N-Acetylcy steine and Metamizole may falsely depress this assay. Reference Range HDL <40 mg/dL Low HDL Cholesterol HDL >or= 60 mg/dL High HDL Cholesterol Serum or plasma cholesterol in VLDL measurement (mass/volume)on 07-05-2021 Cholesterol in VLDL [Mass/Vol] 40 mg/dL 5-40 [facility] Work Phone: Serum or plasma low density lipoprotein (LDL) cholesterol measurement (mass/volume)on 07-05-2021 Cholesterol in LDL [Mass/Vol] 78 mg/dL 0-130 [facility] Work Phone: Absolute lymphocyte counton 06-28-2021 Lymphocytes Auto (Unsp spec) [#/Vol] 2.01 10*3/uL 0.83-4.51 [facility] Work Phone: Basophil percentageon 2021 Basophils/100 WBC (Bld) 0.5 % 0-1 [facility] Work Phone: Eosinophils/100 WBC (Bld) 0.3 % 0-5 [facility] Work Phone: Neutrophils (Bld) [#/Vol] 3.3 10*3/uL 2.0-7.7 [facility] Work Phone: Neutrophils/100 WBC (Bld) 55.5 % 47-70 [facility] Work Phone: WBC (Bld) [#/Vol] 6.0 10*3/uL 4.4-11.0 [facility] Work Phone: Blood erythrocytes count (nu mber/volume)on 06-28-2021 RBC (Bld) [#/Vol] 4.32 10*6/uL 4.6-6.[address] [facility] Work Phone: Blood hemoglobin measurement (mass/volume)on 06-28-2021 Hemoglobin (Bld) [Mass/Vol] 13.5 g/dL 13.0-16.5 [facility] Work Phone: Blood lymphocytes/100 leukoc yteson 06-28-2021 Lymphocytes/100 WBC (Bld) 33.5 % 19-41 [facility] Work Phone: Blood monocytes/100 leukocyt eson 06-28-2021 Monocytes/100 WBC (Bld) 10.0 % 0-10 [facility] Work Phone: Blood platelet mean volumeon 06-28-2021 Platelet mean volume (Bld) [Entitic vol] 11.8 fL 6.2-12.0 [facility] Work Phone: Determination of erythrocyte mean corpuscular volume (MCV)on 06-28-2021 MCV (RBC) [Entitic vol] 89.8 fL 80-94 [facility] Work Phone: Hematocrit Auto (Bld) [Volum e fraction]on 06-28-2021 Hematocrit (Bld) [Volume fraction] 38.8 % 40-54 [facility] Work Phone: Laboratory - Hematology and Cell countson 06-28-2021 Erythrocyte distribution width (RBC) [Entitic vol] 40.6 fL 35.1-43.9 [facility] Work Phone: Erythrocyte distribution width (RBC) [Ratio] 12.5 % 11.6-14.6 [facility] Work Phone: Immature granulocytes/100 WBC (Bld) 0.200 % 0.0-0.9 [facility] Work Phone: Comment on above: IG% - Immature Granu locytes (promyelocytes, myelocytes and metamyelocytes) > 1% indicates that a LEFT SHIFT is Present. MCH (RBC) [Entitic mass] 31.3 pg 27.0-32.0 [facility] Work Phone: Nucleated RBC/100 WBC (Bld) [Ratio] 0 % 0-5 [facility] Work Phone: MCHC Auto (RBC) [Mass/Vol]on 06-28-2021 MCHC (RBC) [Mass/Vol] 34.8 g/dL 32-36 [facility] Work Phone: Platelets bldon 06-28-2021 Platelets (Bld) [#/Vol] 185 10*3/uL 150-450 [facility] Work Phone: Absolute lymphocyte counton 06-21-2021 Lymphocytes Auto (Unsp spec) [#/Vol] 1.78 10*3/uL 0.83-4.51 [facility] Work Phone: [phone] Basophil percentageon 2021 Basophils/100 WBC (Bld) 0.3 % 0-1 [facility] Work Phone: Eosinophils/100 WBC (Bld) 0.4 % 0-5 [facility] Work Phone: Neutrophils (Bld) [#/Vol] 4.2 10*3/uL 2.0-7.7 [facility] Work Phone: Neutrophils/100 WBC (Bld) 62.7 % 47-70 [facility] Work Phone: WBC (Bld) [#/Vol] 6.8 10*3/uL 4.4-11.0 [facility] Work Phone: Blood erythrocytes count (nu mber/volume)on 06-21-2021 RBC (Bld) [#/Vol] 4.21 10*6/uL 4.6-6.2 [facility] Work [facility]: Blood hemoglobin measurement (mass/volume)on 06-21-2021 Hemoglobin (Bld) [Mass/Vol] 13.3 g/dL 13.0-16.5 [facility] Work Phone: Blood lymphocytes/100 leukoc yteson 06-21-2021 Lymphocytes/100 WBC (Bld) 26.3 % 19-41 [facility] Work Phone: Blood monocytes/100 leukocyt eson 06-21-2021 Monocytes/100 WBC (Bld) 9.9 % 0-10 [facility] Work Phone: Blood platelet mean volumeon 06-21-2021 Platelet mean volume (Bld) [Entitic vol] 11.5 fL 6.2-12.0 [facility] Work Phone: Determination of erythrocyte mean corpuscular volume (MCV)on 06-21-2021 MCV (RBC) [Entitic vol] 91.0 fL 80-94 [facility] Work Phone: Hematocrit Auto (Bld) [Volum e fraction]on 06-21-2021 Hematocrit (Bld) [Volume fraction] 38.3 % 40-54 [facility] Work Phone: Laboratory - Hematology and Cell countson 06-21-2021 Erythrocyte distribution width (RBC) [Entitic vol] 40.2 fL 35.1-43.9 [facility] Work Phone: Erythrocyte distribution width (RBC) [Ratio] 12.2 % 11.6-14.6 [facility] Work Phone: Immature granulocytes/100 WBC (Bld) 0.400 % 0.0-0.9 [facility] Work Phone: Comment on above: IG% - Immature Granu locytes (promyelocytes, myelocytes and metamyelocytes) > 1% indicates that a LEFT SHIFT is Present. MCH (RBC) [Entitic mass] 31.6 pg 27.0-32.0 [facility] Work Phone: Nucleated RBC/100 WBC (Bld) [Ratio] 0 % 0-5 [facility] Work Phone: MCHC Auto (RBC) [Mass/Vol]on 06-21-2021 MCHC (RBC) [Mass/Vol] 34.7 g/dL 32-36 [facility] Work Phone: Platelets bldon 06-21-2021 Platelets (Bld) [#/Vol] 217 10*3/uL 150-450 [facility] Work Phone: Absolute lymphocyte counton 06-14-2021 Lymphocytes Auto (Unsp spec) [#/Vol] 1.41 10*3/uL 0.83-4.51 [facility] Work Phone: Basophil percentageon 2021 Basophils/100 WBC (Bld) 0.4 % 0-1 [facility] Work Phone: Chloride [Moles/Vol] 106 mmol/L 98-107 [facility] Work Phone: Eosinophils/100 WBC (Bld) 0.6 % 0-5 [facility] Work Phone: Glucose [Mass/Vol] 121 mg/dL 74-106 [facility] Work Phone: Comment on above: Fasting Glucose resu lt from 100 to 125 mg/dL suggests IMPAIRED HOMEOSTASIS per A.D.A. criteria. Neutrophils (Bld) [#/Vol] 4.8 10*3/uL 2.0-7.7 [facility] Work Phone: Neutrophils/100 WBC (Bld) 69.9 % 47-70 [facility] Work Phone: Potassium [Moles/Vol] 3.7 mmol/L 3.5-5.1 [facility] Work Phone: Sodium [Moles/Vol] 140 mmol/L 136-145 [facility] Work Phone: WBC (Bld) [#/Vol] 6.8 10*3/uL 4.4-11.0 [facility] Work Phone: Blood erythrocytes count (nu mber/volume)on 06-14-2021 RBC (Bld) [#/Vol] 4.78 10*6/uL 4.6-6.[address] [facility] Work Phone: Blood hemoglobin measurement (mass/volume)on 06-14-2021 Hemoglobin (Bld) [Mass/Vol] 14.9 g/dL 13.0-16.5 [facility] Work Phone: Blood lymphocytes/100 leukoc yteson 06-14-2021 Lymphocytes/100 WBC (Bld) 20.8 % 19-41 [facility] Work Phone: Blood monocytes/100 leukocyt eson 06-14-2021 Monocytes/100 WBC (Bld) 7.7 % 0-10 [facility] Work Phone: Blood platelet mean volumeon 06-14-2021 Platelet mean volume (Bld) [Entitic vol] 11.5 fL 6.2-12.0 [facility] Work Phone: Determination of erythrocyte mean corpuscular volume (MCV)on 06-14-2021 MCV (RBC) [Entitic vol] 89.5 fL 80-94 [facility] Work Phone: Hematocrit Auto (Bld) [Volum e fraction]on 06-14-2021 Hematocrit (Bld) [Volume fraction] 42.8 % 40-54 [facility] Work Phone: Laboratory - Chemistry and C hemistry - challengeon 06-14-2021 CO2 [Moles/Vol] 27.0 mmol/L 21.0-32.0 [facility] Work Phone: Urea nitrogen/Creatinine [Mass ratio] 35.0 mg/mg 10-20 [facility] Work Phone: Laboratory - Hematology and Cell countson 06-14-2021 Erythrocyte distribution width (RBC) [Entitic vol] 39.3 fL 35.1-43.9 [facility] Work Phone: Erythrocyte distribution width (RBC) [Ratio] 12.0 % 11.6-14.6 [facility] Work Phone: Immature granulocytes/100 WBC (Bld) 0.600 % 0.0-0.9 [facility] Work Phone: Comment on above: IG% - Immature Granu locytes (promyelocytes, myelocytes and metamyelocytes) > 1% indicates that a LEFT SHIFT is Present. MCH (RBC) [Entitic mass] 31.2 pg 27.0-32.0 [facility] Work Phone: Nucleated RBC/100 WBC (Bld) [Ratio] 0 % 0-5 [facility] Work Phone: MCHC Auto (RBC) [Mass/Vol]on 06-14-2021 MCHC (RBC) [Mass/Vol] 34.8 g/dL 32-36 [facility] Work Phone: No Panel Informationon 06-14 Estimated GFR (MDRD) Amer 185 mL/min >60 [facility] Work Phone: Comment on above: GFR Calc Estimated GFR (MDRD) Non-Af Amer 153 mL/min >60 [facility] Work Phone: Comment on above: Non- GFR Calc Platelets bldon 06-14-2021 Platelets (Bld) [#/Vol] 223 10*3/uL 150-450 [facility] Work Phone: Serum or plasma calcium gordy urement (mass/volume)on 06-14-2021 Calcium [Mass/Vol] 8.0 mg/dL 8.5-10.1 [facility] Work Phone: Serum or plasma creatinine m easurement (mass/volume)on 06-14-2021 Creatinine [Mass/Vol] 0.57 mg/dL 0.70-1.30 [facility] Work Phone: Comment on above: The validity of the calculated GFR & GFRAA in patients over 70 years has not been determined. Clinical correlation is essential. Serum or plasma urea nitroge n measurement (mass/volume)on 06-14-2021 Urea nitrogen [Mass/Vol] 20 mg/dL 7-18 [facility] Work Phone: Thin prep Papanicolaou smear with manual screeningon 06-14-2021 Thin prep Papanicolaou smear with manual screening 7 5-15 [facility] Work Phone: Absolute lymphocyte counton 06-07-2021 Lymphocytes Auto (Unsp spec) [#/Vol] 1.38 10*3/uL 0.83-4.51 [facility] Work Phone: Basophil percentageon 2021 Basophils/100 WBC (Bld) 0.2 % 0-1 [facility] Work Phone: Eosinophils/100 WBC (Bld) 0.0 % 0-5 [facility] Work Phone: Neutrophils (Bld) [#/Vol] 7.3 10*3/uL 2.0-7.7 [facility] Work Phone: Neutrophils/100 WBC (Bld) 75.3 % 47-70 [facility] Work Phone: WBC (Bld) [#/Vol] 9.7 10*3/uL 4.4-11.0 [facility] Work Phone: Blood erythrocytes count (nu mber/volume)on 06-07-2021 RBC (Bld) [#/Vol] 4.48 10*6/uL 4.6-6.[address] [facility] Work Phone: Blood hemoglobin measurement (mass/volume)on 06-07-2021 Hemoglobin (Bld) [Mass/Vol] 13.8 g/dL 13.0-16.5 [facility] Work Phone: Blood lymphocytes/100 leukoc yteson 06-07-2021 Lymphocytes/100 WBC (Bld) 14.2 % 19-41 [facility] Work Phone: Blood monocytes/100 leukocyt eson 06-07-2021 Monocytes/100 WBC (Bld) 10.2 % 0-10 [facility] Work Phone: Blood platelet mean volumeon 06-07-2021 Platelet mean volume (Bld) [Entitic vol] 11.9 fL 6.2-12.0 [facility] Work Phone: Determination of erythrocyte mean corpuscular volume (MCV)on 06-07-2021 MCV (RBC) [Entitic vol] 92.9 fL 80-94 [facility] Work Phone: Hematocrit Auto (Bld) [Volum e fraction]on 06-07-2021 Hematocrit (Bld) [Volume fraction] 41.6 % 40-54 [facility] Work Phone: Laboratory - Hematology and Cell countson 06-07-2021 Erythrocyte distribution width (RBC) [Entitic vol] 43.8 fL 35.1-43.9 [facility] Work Phone: [phone] Erythrocyte distribution width (RBC) [Ratio] 12.8 % 11.6-14.6 [facility] Work Phone: [phone] Immature granulocytes/100 WBC (Bld) 0.100 % 0.0-0.9 [facility] Work Phone: [phone] Comment on above: IG% - Immature Granu locytes (promyelocytes, myelocytes and metamyelocytes) > 1% indicates that a LEFT SHIFT is Present. MCH (RBC) [Entitic mass] 30.8 pg 27.0-32.0 [facility] Work Phone: [phone] Nucleated RBC/100 WBC (Bld) [Ratio] 0 % 0-5 [facility] Work Phone: [phone] MCHC Auto (RBC) [Mass/Vol]on 06-07-2021 MCHC (RBC) [Mass/Vol] 33.2 g/dL 32-36 [facility] Work Phone: Platelets bldon 06-07-2021 Platelets (Bld) [#/Vol] 152 10*3/uL 150-450 [facility] Work Phone: [phone] Absolute lymphocyte counton 05-31-2021 Lymphocytes Auto (Unsp spec) [#/Vol] 1.72 10*3/uL 0.83-4.51 [facility] Work Phone: [phone] Basophil percentageon 2021 Basophils/100 WBC (Bld) 0.7 % 0-1 [facility] Work Phone: Eosinophils/100 WBC (Bld) 1.1 % 0-5 [facility] Work Phone: Neutrophils (Bld) [#/Vol] 3.3 10*3/uL 2.0-7.7 [facility] Work Phone: [phone] Neutrophils/100 WBC (Bld) 58.5 % 47-70 [facility] Work Phone: WBC (Bld) [#/Vol] 5.6 10*3/uL 4.4-11.0 [facility] Work Phone: Blood erythrocytes count (nu mber/volume)on 05-31-2021 RBC (Bld) [#/Vol] 4.44 10*6/uL 4.6-6.2 [facility] Work [facility]: Blood hemoglobin measurement (mass/volume)on 05-31-2021 Hemoglobin (Bld) [Mass/Vol] 13.6 g/dL 13.0-16.5 [facility] Work Phone: Blood lymphocytes/100 leukoc yteson 05-31-2021 Lymphocytes/100 WBC (Bld) 30.7 % 19-41 [facility] Work Phone: Blood monocytes/100 leukocyt eson 05-31-2021 Monocytes/100 WBC (Bld) 8.6 % 0-10 [facility] Work Phone: Blood platelet mean volumeon 05-31-2021 Platelet mean volume (Bld) [Entitic vol] 11.2 fL 6.2-12.0 [facility] Work Phone: Determination of erythrocyte mean corpuscular volume (MCV)on 05-31-2021 MCV (RBC) [Entitic vol] 92.1 fL 80-94 [facility] Work Phone: Hematocrit Auto (Bld) [Volum e fraction]on 05-31-2021 Hematocrit (Bld) [Volume fraction] 40.9 % 40-54 [facility] Work Phone: Laboratory - Hematology and Cell countson 05-31-2021 Erythrocyte distribution width (RBC) [Entitic vol] 42.2 fL 35.1-43.9 [facility] Work Phone: Erythrocyte distribution width (RBC) [Ratio] 12.4 % 11.6-14.6 [facility] Work Phone: Immature granulocytes/100 WBC (Bld) 0.400 % 0.0-0.9 [facility] Work Phone: Comment on above: IG% - Immature Granu locytes (promyelocytes, myelocytes and metamyelocytes) > 1% indicates that a LEFT SHIFT is Present. MCH (RBC) [Entitic mass] 30.6 pg 27.0-32.0 [facility] Work Phone: Nucleated RBC/100 WBC (Bld) [Ratio] 0 % 0-5 [facility] Work Phone: MCHC Auto (RBC) [Mass/Vol]on 05-31-2021 MCHC (RBC) [Mass/Vol] 33.3 g/dL 32-36 [facility] Work Phone: Platelets bldon 05-31-2021 Platelets (Bld) [#/Vol] 189 10*3/uL 150-450 [facility] Work Phone: [phone] Absolute lymphocyte counton 05-24-2021 Lymphocytes Auto (Unsp spec) [#/Vol] 1.58 10*3/uL 0.83-4.51 [facility] Work Phone: Basophil percentageon 2021 Basophils/100 WBC (Bld) 0.8 % 0-1 [facility] Work Phone: Eosinophils/100 WBC (Bld) 2.4 % 0-5 [facility] Work Phone: Neutrophils (Bld) [#/Vol] 3.8 10*3/uL 2.0-7.7 [facility] Work Phone: Neutrophils/100 WBC (Bld) 60.3 % 47-70 [facility] Work Phone: WBC (Bld) [#/Vol] 6.3 10*3/uL 4.4-11.0 [facility] Work Phone: [phone] Blood erythrocytes count (nu mber/volume)on 05-24-2021 RBC (Bld) [#/Vol] 4.50 10*6/uL 4.6-6.2 [facility] Work Phone: Blood hemoglobin measurement (mass/volume)on 05-24-2021 Hemoglobin (Bld) [Mass/Vol] 13.7 g/dL 13.0-16.5 [facility] Work Phone: Blood lymphocytes/100 leukoc yteson 05-24-2021 Lymphocytes/100 WBC (Bld) 25.0 % 19-41 [facility] Work Phone: Blood monocytes/100 leukocyt eson 05-24-2021 Monocytes/100 WBC (Bld) 11.2 % 0-10 [facility] Work Phone: Blood platelet mean volumeon 05-24-2021 Platelet mean volume (Bld) [Entitic vol] 11.3 fL 6.2-12.0 [facility] Work Phone: Determination of erythrocyte mean corpuscular volume (MCV)on 05-24-2021 MCV (RBC) [Entitic vol] 92.9 fL 80-94 [facility] Work Phone: Hematocrit Auto (Bld) [Volum e fraction]on 05-24-2021 Hematocrit (Bld) [Volume fraction] 41.8 % 40-54 [facility] Work Phone: Laboratory - Hematology and Cell countson 05-24-2021 Erythrocyte distribution width (RBC) [Entitic vol] 42.8 fL 35.1-43.9 [facility] Work Phone: Erythrocyte distribution width (RBC) [Ratio] 12.6 % 11.6-14.6 [facility] Work Phone: Immature granulocytes/100 WBC (Bld) 0.300 % 0.0-0.9 [facility] Work Phone: Comment on above: IG% - Immature Granu locytes (promyelocytes, myelocytes and metamyelocytes) > 1% indicates that a LEFT SHIFT is Present. MCH (RBC) [Entitic mass] 30.4 pg 27.0-32.0 [facility] Work Phone: Nucleated RBC/100 WBC (Bld) [Ratio] 0 % 0-5 [facility] Work Phone: MCHC Auto (RBC) [Mass/Vol]on 05-24-2021 MCHC (RBC) [Mass/Vol] 32.8 g/dL 32-36 [facility] Work Phone: Platelets bldon 05-24-2021 Platelets (Bld) [#/Vol] 207 10*3/uL 150-450 [facility] Work Phone: Absolute lymphocyte counton 05-17-2021 Lymphocytes Auto (Unsp spec) [#/Vol] 1.59 10*3/uL 0.83-4.51 [facility] Work Phone: Basophil percentageon 2021 Basophils/100 WBC (Bld) 0.7 % 0-1 [facility] Work Phone: [phone] Eosinophils/100 WBC (Bld) 1.7 % 0-5 [facility] Work Phone: Neutrophils (Bld) [#/Vol] 3.5 10*3/uL 2.0-7.7 [facility] Work Phone: Neutrophils/100 WBC (Bld) 59.5 % 47-70 [facility] Work Phone: WBC (Bld) [#/Vol] 5.9 10*3/uL 4.4-11.0 [facility] Work [facility]: Blood erythrocytes count (nu mber/volume)on 05-17-2021 RBC (Bld) [#/Vol] 4.35 10*6/uL 4.6-6.2 [facility] Work Phone: Blood hemoglobin measurement (mass/volume)on 05-17-2021 Hemoglobin (Bld) [Mass/Vol] 13.4 g/dL 13.0-16.5 [facility] Work Phone: Blood lymphocytes/100 leukoc yteson 05-17-2021 Lymphocytes/100 WBC (Bld) 26.9 % 19-41 [facility] Work Phone: Blood monocytes/100 leukocyt eson 05-17-2021 Monocytes/100 WBC (Bld) 11.0 % 0-10 [facility] Work Phone: Blood platelet mean volumeon 05-17-2021 Platelet mean volume (Bld) [Entitic vol] 11.5 fL 6.2-12.0 [facility] Work Phone: Determination of erythrocyte mean corpuscular volume (MCV)on 05-17-2021 MCV (RBC) [Entitic vol] 92.9 fL 80-94 [facility] Work Phone: Hematocrit Auto (Bld) [Volum e fraction]on 05-17-2021 Hematocrit (Bld) [Volume fraction] 40.4 % 40-54 [facility] Work Phone: Laboratory - Hematology and Cell countson 05-17-2021 Erythrocyte distribution width (RBC) [Entitic vol] 43.4 fL 35.1-43.9 [facility] Work Phone: Erythrocyte distribution width (RBC) [Ratio] 12.7 % 11.6-14.6 [facility] Work Phone: Immature granulocytes/100 WBC (Bld) 0.200 % 0.0-0.9 [facility] Work Phone: Comment on above: IG% - Immature Granu locytes (promyelocytes, myelocytes and metamyelocytes) > 1% indicates that a LEFT SHIFT is Present. MCH (RBC) [Entitic mass] 30.8 pg 27.0-32.0 [facility] Work Phone: Nucleated RBC/100 WBC (Bld) [Ratio] 0 % 0-5 [facility] Work Phone: MCHC Auto (RBC) [Mass/Vol]on 01-17-2022 MCHC (RBC) [Mass/Vol] 33.2 g/dL 32-36 [facility] Work Phone: Platelets bldon 05-17-2021 Platelets (Bld) [#/Vol] 171 10*3/uL 150-450 [facility] Work Phone: ED Provider Noteon 2 ED Provider Note Emergency Department Encounter [facility] ED Patient: Kathya Hooper : 1955 Date of Evaluation: 05/15/2021 ED Supervising Physician: Timothy Burton DO This patient was seen during a global health emergency during the COVID-19 pandemic and its resultant significant effects on the delivery of emergency care. This includes but is not limited to the following: significant ED boarding, hospital overcrowding, limited bed availability (floor and especially ICU), limited resources (personnel, supplies, testing, services etc). While every and all efforts are made to delivery the highest quality care in a prompt way there may or may not be significant delays in care as a result. I independently examined and evaluated Kathya Hooper. I saw and evaluated the patient. The case was discussed with the YANET/resident. I personally reviewed the HPI, PH, FH, SH, ROS and medications. I repeated pertinent portions of the examination reviewed the relevant imaging and laboratory data. I agree with the findings, assessment and plan as documented. Chief Complaint Patient presents with ? Other peg tube dislodgement Kathya Hooper 66 y.o. male here for PEG tube dislodgment. EtOH, schizophrenia Exam: BP 115/76 Pulse 102 Temp 97.6 ?F (36.4 ?C) (Temporal) Resp 16 Ht 6' 2 (1.88 m) Wt 83.9 kg (185 lb) SpO2 99% BMI 23.75 kg/m? The patient was hemodynamically stable, afebrile, non-toxic appearing. There was no murmurs, gallops, or rubs. Lungs were clear without wheezing or rales. The patient had symmetric pulses in all 4 extremities. There is no lower extremity edema. There were no pulsatile abdominal masses, no auscultated abdominal bruits, no peritoneal signs. Ospina and PEG tube orifice. PEG tube site clean dry intact no erythema fluctuance or induration. No tenderness to palpation around PEG tube site. There were no focal neurologic deficits. MDM/Plan: I personally saw the patient and performed a substantive portion of the visit including all aspects of the medical decision making. Patient's PEG tube was replaced with a G-tube. He tolerated procedure well. He is discharged stable condition. I personally saw the patient and independently provided 00 minutes of non-concurrent critical care out of the total shared critical care time provided. 1. PEG tube malfunction (HCC) Feeding Tube Date/Time: 05/15/2021 3:28 PM Performed by: Timothy Burton DO Authorized by: Timothy Burton DO Consent: Consent obtained: Verbal Consent given by: Patient Risks discussed: Bleeding, infection and pain Alternatives discussed: No treatment Pre-procedure details: Old tube type: Gastrostomy Old tube size: 18 Fr Anesthesia (see MAR for exact dosages): Anesthesia method: Local infiltration Local anesthetic: Lidocaine 1% w/o epi Procedure details: Tube type: Gastrostomy Tube size: 16 Fr Bulb inflation fluid: Normal saline Post-procedure details: Placement/position confirmation: Auscultation Placement difficulty: None Bleeding: None Patient tolerance of procedure: Tolerated well, no immediate complications All diagnostic, treatment, and disposition decisions were made by myself in conjunction with the YANET. For all further details of the patient's emergency department visit, please see their documentation. (Please note that portions of this note may have been completed with a voice recognition program. Efforts were made to edit the dictations but occasionally words are mis-transcribed.) Timothy Burton DO [employer] Timothy Burton DO 05/15/21 1530 [facility] ED Provider Note [facility] ED eMERGENCY dEPARTMENT eNCOUnter Pt Name: Kathya Hooper Birthdate 1955 Date of evaluation: 05/15/2021 Provider: Mary Cochran PA-C CHIEF COMPLAINT Chief Complaint Patient presents with ? Other peg tube dislodgement HISTORY OF PRESENT ILLNESS (Location/Symptom, Timing/Onset,Context/ Setting, Quality, Duration, Modifying Factors, Severity) Note limiting factors. HPI Kathya Hooper is a 66 y.o. male who presents to the emergency department complaining of his PEG tube being dislodged around 3 AM when he woke up to go to the bathroom. Patient denies being in any pain today. No aggravating or alleviating factors. No radiation component. He states the symptoms are constant. Patient states he has this PEG tube due to problems swallowing. He has had his PEG tube for 2-1/2 years. Patient denies any associated fevers chills. Patient denies any purulence or redness around the site of the PEG tube. Patient denies any abdominal pain. Patient states he has not had problems with his PEG tube in the past. Nursing Notes were reviewed. REVIEW OFSYSTEMS (2+ for level 4; 10+ for level 5) Review of Systems Constitutional: Negative for chills and fever. HENT: Negative for congestion, postnasal drip, rhinorrhea and sore throat. Eyes: Negative for photophobia and visual disturbance. Respiratory: Negative for cough, chest tightness and shortness of breath. Cardiovascular: Negative for chest pain, palpitations and leg swelling. Gastrointestinal: Negative for abdominal distention, abdominal pain, blood in stool, constipation, diarrhea, nausea and vomiting. Endocrine: Negative for polydipsia, polyphagia and polyuria. Genitourinary: Negative for difficulty urinating, dysuria, flank pain, hematuria and urgency. Musculoskeletal: Negative for arthralgias, back pain and myalgias. Skin: Negative for rash and wound. Some dried blood surrounding PEG tube site, no purulence or erythema surrounding site. Neurological: Negative for dizziness, syncope, light-headedness and numbness. Psychiatric/Behaviora l: Negative for agitation. The patient is not nervous/anxious. All other systems reviewed and are negative. PAST MEDICAL HISTORY Past Medical History: Diagnosis Date ? TREVER (acute kidney injury) ([facility]) ? Alcohol abuse 07/08/2018 ? Anxiety ? C1 spinal cord injury (HCC) ? Depression ? Fall 06/2018 ? Schizophrenia (HCC) SURGICAL HISTORY Past Surgical History: Procedure Laterality Date ? CERVICAL FUSION 07/09/2014 C2-6 cervical fusion ? GASTROSTOMY TUBE PLACEMENT 07/13/2018 ? TRACHEOSTOMY 07/13/2018 CURRENT MEDICATIONS Previous Medications ACETAMINOPHEN (TYLENOL) 325 MG TABLET Take 650 mg by mouth every 6 hours as needed for Pain ASPIRIN 81 MG CHEWABLE TABLET 1 tablet by Per NG tube route daily ATORVASTATIN (LIPITOR) 40 MG TABLET 1 tablet by Per NG tube route nightly BALSAM TRACEY-CASTOR OIL (VENELEX) OINT OINTMENT Apply topically every 8 hours CLOZAPINE (CLOZARIL) 100 MG TABLET 1 tablet by Per G Tube route 2 times daily DOCUSATE (COLACE) 50 MG/5ML LIQUID 10 mLs by Per NG tube route 2 times daily ENOXAPARIN (LOVENOX) 30 MG/0.3ML INJECTION Inject 0.3 mLs into the skin 2 times daily FINASTERIDE (PROSCAR) 5 MG TABLET Take 1 tablet by mouth daily IPRATROPIUM-ALBUTEROL (DUONEB) 0.5-2.5 (3) MG/3ML SOLN NEBULIZER SOLUTION Inhale 3 mLs into the lungs every 4 hours MELATONIN 3 MG TABS TABLET 1 tablet by Per G Tube route nightly as needed (sleeplessness) MINERAL OIL-HYDROPHILIC PETROLATUM (AQUAPHOR) OINTMENT Apply topically as needed. MULTIPLE VITAMINS-MINERALS (CENTRUM/CERTA-JAVIER WITH MINERALS ORAL) SOLUTION Take 15 mLs by mouth daily RISPERIDONE (RISPERDAL) 0.5 MG TABLET Take 0.5 mg by mouth daily SODIUM CHLORIDE, INHALANT, 3 % NEBULIZER SOLUTION Take 4 mLs by nebulization 4 times daily TAMSULOSIN (FLOMAX) 0.4 MG CAPSULE Take 1 capsule by mouth daily VITAMIN B-1 (THIAMINE) 100 MG TABLET Take 100 mg by mouth daily VITAMIN D (CHOLECALCIFEROL) 1000 UNIT TABS TABLET Take 1,000 Units by mouth daily ALLERGIES Patient has no known allergies. FAMILY HISTORY History reviewed. No pertinent family history. SOCIAL HISTORY Social History Socioeconomic History ? Marital status: Single Spouse name: None ? Number of children: None ? Years of education: None ? Highest education level: None Occupational History ? None Tobacco Use ? Smoking status: Former Smoker Types: Cigars Quit date: 02/06/2016 Years since quittin.2 ? Smokeless tobacco: Never Used Vaping Use ? Vaping Use: Never used Substance and Sexual Activity ? Alcohol use: Yes Alcohol/week: 6.0 standard drinks Types: 6 Cans of beer per week Comment: 2 times per work, occasionally liquor ? Drug use: No Comment: quit pot 3 yrs ago. ? Sexual activity: None Other Topics Concern ? None Social History Narrative ? None Social Determinants of Hea (more content not included)... Normal [facility] Basophil percentageon 2021 Chloride [Moles/Vol] 105 mmol/L 98-107 [facility] Work Phone: Glucose [Mass/Vol] 96 mg/dL 74-106 [facility] Work Phone: Potassium [Moles/Vol] 3.5 mmol/L 3.5-5.1 [facility] Work Phone: Sodium [Moles/Vol] 141 mmol/L 136-145 [facility] Work Phone: Laboratory - Chemistry and C hemistry - challengeon 05-14-2021 CO2 [Moles/Vol] 30.0 mmol/L 21.0-32.0 [facility] Work Phone: Urea nitrogen/Creatinine [Mass ratio] 39.2 mg/mg 10-20 [facility] Work Phone: No Panel Informationon 05-14 Estimated GFR (MDRD) Amer 210 mL/min >60 [facility] Work Phone: Comment on above: GFR Calc Estimated GFR (MDRD) Non-Af Amer 174 mL/min >60 [facility] Work Phone: Comment on above: Non- GFR Calc Serum or plasma calcium gordy urement (mass/volume)on 05-14-2021 Calcium [Mass/Vol] 8.4 mg/dL 8.5-10.1 [facility] Work Phone: Serum or plasma creatinine m easurement (mass/volume)on 05-14-2021 Creatinine [Mass/Vol] 0.51 mg/dL 0.70-1.30 [facility] Work Phone: Comment on above: The validity of the calculated GFR & GFRAA in patients over 70 years has not been determined. Clinical correlation is essential. Serum or plasma urea nitroge n measurement (mass/volume)on 05-14-2021 Urea nitrogen [Mass/Vol] 20 mg/dL 7-18 [facility] Work Phone: Thin prep Papanicolaou smear with manual screeningon 05-14-2021 Thin prep Papanicolaou smear with manual screening 6 5-15 [facility] Work Phone: Absolute lymphocyte counton 05-10-2021 Lymphocytes Auto (Unsp spec) [#/Vol] 1.65 10*3/uL 0.83-4.51 [facility] Work Phone: Basophil percentageon 2021 Basophils/100 WBC (Bld) 0.5 % 0-1 [facility] Work Phone: Eosinophils/100 WBC (Bld) 0.7 % 0-5 [facility] Work Phone: Neutrophils (Bld) [#/Vol] 5.6 10*3/uL 2.0-7.7 [facility] Work Phone: Neutrophils/100 WBC (Bld) 69.5 % 47-70 [facility] Work Phone: WBC (Bld) [#/Vol] 8.1 10*3/uL 4.4-11.0 [facility] Work Phone: Blood erythrocytes count (nu mber/volume)on 05-10-2021 RBC (Bld) [#/Vol] 4.52 10*6/uL 4.6-6.[address] [facility] Work Phone: Blood hemoglobin measurement (mass/volume)on 05-10-2021 Hemoglobin (Bld) [Mass/Vol] 13.8 g/dL 13.0-16.5 [facility] Work Phone: Blood lymphocytes/100 leukoc yteson 05-10-2021 Lymphocytes/100 WBC (Bld) 20.4 % 19-41 [facility] Work Phone: Blood monocytes/100 leukocyt eson 05-10-2021 Monocytes/100 WBC (Bld) 8.4 % 0-10 [facility] Work Phone: Blood platelet mean volumeon 05-10-2021 Platelet mean volume (Bld) [Entitic vol] 11.3 fL 6.2-12.0 [facility] Work Phone: Determination of erythrocyte mean corpuscular volume (MCV)on 05-10-2021 MCV (RBC) [Entitic vol] 91.8 fL 80-94 [facility] Work Phone: Hematocrit Auto (Bld) [Volum e fraction]on 05-10-2021 Hematocrit (Bld) [Volume fraction] 41.5 % 40-54 [facility] Work Phone: Laboratory - Hematology and Cell countson 05-10-2021 Erythrocyte distribution width (RBC) [Entitic vol] 42.9 fL 35.1-43.9 [facility] Work Phone: Erythrocyte distribution width (RBC) [Ratio] 12.8 % 11.6-14.6 [facility] Work Phone: Immature granulocytes/100 WBC (Bld) 0.500 % 0.0-0.9 [facility] Work Phone: Comment on above: IG% - Immature Granu locytes (promyelocytes, myelocytes and metamyelocytes) > 1% indicates that a LEFT SHIFT is Present. MCH (RBC) [Entitic mass] 30.5 pg 27.0-32.0 [facility] Work Phone: Nucleated RBC/100 WBC (Bld) [Ratio] 0 % 0-5 [facility] Work Phone: MCHC Auto (RBC) [Mass/Vol]on 05-10-2021 MCHC (RBC) [Mass/Vol] 33.3 g/dL 32-36 [facility] Work Phone: Platelets bldon 05-10-2021 Platelets (Bld) [#/Vol] 191 10*3/uL 150-450 [facility] Work Phone: Absolute lymphocyte counton 05-03-2021 Lymphocytes Auto (Unsp spec) [#/Vol] 1.69 10*3/uL 0.83-4.51 [facility] Work Phone: [phone] Basophil percentageon 2021 Basophils/100 WBC (Bld) 0.6 % 0-1 [facility] Work Phone: Eosinophils/100 WBC (Bld) 0.7 % 0-5 [facility] Work Phone: Neutrophils (Bld) [#/Vol] 4.6 10*3/uL 2.0-7.7 [facility] Work Phone: Neutrophils/100 WBC (Bld) 64.4 % 47-70 [facility] Work Phone: WBC (Bld) [#/Vol] 7.2 10*3/uL 4.4-11.0 [facility] Work [facility]: Blood erythrocytes count (nu mber/volume)on 05-03-2021 RBC (Bld) [#/Vol] 4.55 10*6/uL 4.6-6.2 [facility] Work [facility]: Blood hemoglobin measurement (mass/volume)on 05-03-2021 Hemoglobin (Bld) [Mass/Vol] 14.0 g/dL 13.0-16.5 [facility] Work Phone: Blood lymphocytes/100 leukoc yteson 05-03-2021 Lymphocytes/100 WBC (Bld) 23.6 % 19-41 [facility] Work Phone: Blood monocytes/100 leukocyt eson 05-03-2021 Monocytes/100 WBC (Bld) 10.3 % 0-10 [facility] Work Phone: Blood platelet mean volumeon 05-03-2021 Platelet mean volume (Bld) [Entitic vol] 11.7 fL 6.2-12.0 [facility] Work Phone: Determination of erythrocyte mean corpuscular volume (MCV)on 05-03-2021 MCV (RBC) [Entitic vol] 93.2 fL 80-94 [facility] Work Phone: Hematocrit Auto (Bld) [Volum e fraction]on 05-03-2021 Hematocrit (Bld) [Volume fraction] 42.4 % 40-54 [facility] Work Phone: Laboratory - Hematology and Cell countson 05-03-2021 Erythrocyte distribution width (RBC) [Entitic vol] 44.2 fL 35.1-43.9 [facility] Work Phone: Erythrocyte distribution width (RBC) [Ratio] 13.1 % 11.6-14.6 [facility] Work Phone: Immature granulocytes/100 WBC (Bld) 0.400 % 0.0-0.9 [facility] Work Phone: Comment on above: IG% - Immature Granu locytes (promyelocytes, myelocytes and metamyelocytes) > 1% indicates that a LEFT SHIFT is Present. MCH (RBC) [Entitic mass] 30.8 pg 27.0-32.0 [facility] Work Phone: Nucleated RBC/100 WBC (Bld) [Ratio] 0 % 0-5 [facility] Work Phone: MCHC Auto (RBC) [Mass/Vol]on 05-03-2021 MCHC (RBC) [Mass/Vol] 33.0 g/dL 32-36 [facility] Work Phone: Platelets bldon 05-03-2021 Platelets (Bld) [#/Vol] 175 10*3/uL 150-450 [facility] Work Phone: Absolute lymphocyte counton 04-26-2021 Lymphocytes Auto (Unsp spec) [#/Vol] 1.68 10*3/uL 0.83-4.51 [facility] Work Phone: Basophil percentageon 2020 Eosinophils/100 WBC (Bld) 1.1 % 0-5 [facility] Work Phone: Neutrophils (Bld) [#/Vol] 4.5 10*3/uL 2.0-7.7 [facility] Work Phone: WBC (Bld) [#/Vol] 7.2 10*3/uL 4.4-11.0 [facility] Work Phone: Blood erythrocytes count (nu mber/volume)on 04-26-2021 RBC (Bld) [#/Vol] 4.32 10*6/uL 4.6-6.2 [facility] Work Phone: Blood hemoglobin measurement (mass/volume)on 04-26-2021 Hemoglobin (Bld) [Mass/Vol] 13.5 g/dL 13.0-16.5 [facility] Work Phone: Blood lymphocytes/100 leukoc yteson 04-26-2021 Lymphocytes/100 WBC (Bld) 23.5 % 19-41 [facility] Work Phone: Blood monocytes/100 leukocyt eson 04-26-2021 Monocytes/100 WBC (Bld) 11.0 % 0-10 [facility] Work Phone: Blood platelet mean volumeon 04-26-2021 Platelet mean volume (Bld) [Entitic vol] 11.0 fL 6.2-12.0 [facility] Work Phone: Determination of erythrocyte mean corpuscular volume (MCV)on 04-26-2021 MCV (RBC) [Entitic vol] 93.3 fL 80-94 [facility] Work Phone: Hematocrit Auto (Bld) [Volum e fraction]on 04-26-2021 Hematocrit (Bld) [Volume fraction] 40.3 % 40-54 [facility] Work Phone: Laboratory - Hematology and Cell countson 04-26-2021 Basophils/100 WBC (Unsp spec) 0.6 % 0-1 [facility] Work Phone: Erythrocyte distribution width (RBC) [Entitic vol] 45.8 fL 35.1-43.9 [facility] Work Phone: [phone] Erythrocyte distribution width (RBC) [Ratio] 13.2 % 11.6-14.6 [facility] Work Phone: [phone] Immature granulocytes/100 WBC (Bld) 0.600 % 0.0-0.9 [facility] Work Phone: Comment on above: IG% - Immature Granu locytes (promyelocytes, myelocytes and metamyelocytes) > 1% indicates that a LEFT SHIFT is Present. MCH (RBC) [Entitic mass] 31.3 pg 27.0-32.0 [facility] Work Phone: [phone] Neutrophils/100 WBC (Bld) 63.2 % 47-70 [facility] Work Phone: [phone] Nucleated RBC/100 WBC (Bld) [Ratio] 0 % 0-5 [facility] Work Phone: [phone] MCHC Auto (RBC) [Mass/Vol]on 04-26-2021 MCHC (RBC) [Mass/Vol] 33.5 g/dL 32-36 [facility] Work Phone: Platelets bldon 04-26-2021 Platelets (Bld) [#/Vol] 172 10*3/uL 150-450 [facility] Work Phone: [phone] Absolute lymphocyte counton 04-19-2021 Lymphocytes Auto (Unsp spec) [#/Vol] 1.31 10*3/uL 0.83-4.51 [facility] Work Phone: Basophil percentageon 2020 Eosinophils/100 WBC (Bld) 2.8 % 0-5 [facility] Work Phone: Neutrophils (Bld) [#/Vol] 3.0 10*3/uL 2.0-7.7 [facility] Work Phone: WBC (Bld) [#/Vol] 5.0 10*3/uL 4.4-11.0 [facility] Work Phone: [phone] Blood erythrocytes count (nu mber/volume)on 04-19-2021 RBC (Bld) [#/Vol] 4.26 10*6/uL 4.6-6.2 [facility] Work Phone: Blood hemoglobin measurement (mass/volume)on 04-19-2021 Hemoglobin (Bld) [Mass/Vol] 13.2 g/dL 13.0-16.5 [facility] Work Phone: Blood lymphocytes/100 leukoc yteson 04-19-2021 Lymphocytes/100 WBC (Bld) 26.1 % 19-41 [facility] Work Phone: Blood monocytes/100 leukocyt eson 04-19-2021 Monocytes/100 WBC (Bld) 10.0 % 0-10 [facility] Work Phone: Blood platelet mean volumeon 04-19-2021 Platelet mean volume (Bld) [Entitic vol] 10.9 fL 6.2-12.0 [facility] Work Phone: Determination of erythrocyte mean corpuscular volume (MCV)on 04-19-2021 MCV (RBC) [Entitic vol] 93.7 fL 80-94 [facility] Work Phone: Hematocrit Auto (Bld) [Volum e fraction]on 04-19-2021 Hematocrit (Bld) [Volume fraction] 39.9 % 40-54 [facility] Work Phone: Laboratory - Hematology and Cell countson 04-19-2021 Basophils/100 WBC (Unsp spec) 1.0 % 0-1 [facility] Work Phone: Erythrocyte distribution width (RBC) [Entitic vol] 46.7 fL 35.1-43.9 [facility] Work Phone: Erythrocyte distribution width (RBC) [Ratio] 13.7 % 11.6-14.6 [facility] Work Phone: Immature granulocytes/100 WBC (Bld) 0.400 % 0.0-0.9 [facility] Work Phone: Comment on above: IG% - Immature Granu locytes (promyelocytes, myelocytes and metamyelocytes) > 1% indicates that a LEFT SHIFT is Present. MCH (RBC) [Entitic mass] 31.0 pg 27.0-32.0 [facility] Work Phone: [phone] Neutrophils/100 WBC (Bld) 59.7 % 47-70 [facility] Work Phone: [phone] Nucleated RBC/100 WBC (Bld) [Ratio] 0 % 0-5 [facility] Work Phone: [phone] MCHC Auto (RBC) [Mass/Vol]on 04-19-2021 MCHC (RBC) [Mass/Vol] 33.1 g/dL 32-36 [facility] Work Phone: [phone] Platelets bldon 04-19-2021 Platelets (Bld) [#/Vol] 165 10*3/uL 150-450 [facility] Work Phone: [phone] Absolute lymphocyte counton 04-12-2021 Lymphocytes Auto (Unsp spec) [#/Vol] 1.41 10*3/uL 0.83-4.51 [facility] Work Phone: [phone] Basophil percentageon 2020 Bilirubin [Mass/Vol] 0.40 mg/dL 0.20-1.00 [facility] Work Phone: Comment on above: For patients on eltr ombopag therapy, use of Dimension [place] TBIL is not recommended. Eosinophils/100 WBC (Bld) 0.9 % 0-5 [facility] Work Phone: Neutrophils (Bld) [#/Vol] 3.4 10*3/uL 2.0-7.7 [facility] Work Phone: Protein [Mass/Vol] 5.7 g/dL 6.4-8.2 [facility] Work Phone: [phone] WBC (Bld) [#/Vol] 5.5 10*3/uL 4.4-11.0 [facility] Work Phone: Blood erythrocytes count (nu mber/volume)on 04-12-2021 RBC (Bld) [#/Vol] 4.09 10*6/uL 4.6-6.[address] [facility] Work Phone: Blood hemoglobin measurement (mass/volume)on 04-12-2021 Hemoglobin (Bld) [Mass/Vol] 12.4 g/dL 13.0-16.5 [facility] Work Phone: Blood lymphocytes/100 leukoc yteson 04-12-2021 Lymphocytes/100 WBC (Bld) 25.9 % 19-41 [facility] Work Phone: Blood monocytes/100 leukocyt eson 04-12-2021 Monocytes/100 WBC (Bld) 9.2 % 0-10 [facility] Work Phone: Blood platelet mean volumeon 04-12-2021 Platelet mean volume (Bld) [Entitic vol] 11.1 fL 6.2-12.0 [facility] Work Phone: Determination of erythrocyte mean corpuscular volume (MCV)on 04-12-2021 MCV (RBC) [Entitic vol] 93.4 fL 80-94 [facility] Work Phone: Direct bilirubinon Bilirubin.direct [Mass/Vol] 0.08 mg/dL 0.00-0.30 [facility] Work Phone: Hematocrit Auto (Bld) [Volum e fraction]on 04-12-2021 Hematocrit (Bld) [Volume fraction] 38.2 % 40-54 [facility] Work Phone: Laboratory - Chemistry and C hemistry - challengeon 04-12-2021 ALP [Catalytic activity/Vol] 101 U/L 45-117 [facility] Work Phone: ALT [Catalytic activity/Vol] 30 U/L 16-61 [facility] Work Phone: Globulin (S) [Mass/Vol] 2.9 g/dL 2.2-4.2 [facility] Work Phone: Laboratory - Hematology and Cell countson 04-12-2021 Basophils/100 WBC (Unsp spec) 0.6 % 0-1 [facility] Work Phone: Erythrocyte distribution width (RBC) [Entitic vol] 46.7 fL 35.1-43.9 [facility] Work Phone: Erythrocyte distribution width (RBC) [Ratio] 13.7 % 11.6-14.6 [facility] Work Phone: Immature granulocytes/100 WBC (Bld) 0.400 % 0.0-0.9 [facility] Work Phone: Comment on above: IG% - Immature Granu locytes (promyelocytes, myelocytes and metamyelocytes) > 1% indicates that a LEFT SHIFT is Present. MCH (RBC) [Entitic mass] 30.3 pg 27.0-32.0 [facility] Work Phone: Neutrophils/100 WBC (Bld) 63.0 % 47-70 [facility] Work Phone: Nucleated RBC/100 WBC (Bld) [Ratio] 0 % 0-5 [facility] Work Phone: MCHC Auto (RBC) [Mass/Vol]on 04-12-2021 MCHC (RBC) [Mass/Vol] 32.5 g/dL 32-36 [facility] Work Phone: Platelets bldon 04-12-2021 Platelets (Bld) [#/Vol] 173 10*3/uL 150-450 [facility] Work Phone: Serum or plasma albumin gordy urement (mass/volume)on 04-12-2021 Albumin [Mass/Vol] 2.8 g/dL 3.2-5.0 [facility] Work Phone: Thin prep Papanicolaou smear with manual screeningon 04-12-2021 Thin prep Papanicolaou smear with manual screening 15 U/L 15-37 [facility] Work Phone: Absolute lymphocyte counton 04-07-2021 Lymphocytes Auto (Unsp spec) [#/Vol] 1.55 10*3/uL 0.83-4.51 [facility] Work Phone: Basophil percentageon 2020 Eosinophils/100 WBC (Bld) 0.7 % 0-5 [facility] Work Phone: Neutrophils (Bld) [#/Vol] 5.3 10*3/uL 2.0-7.7 [facility] Work Phone: WBC (Bld) [#/Vol] 8.1 10*3/uL 4.4-11.0 [facility] Work Phone: Blood erythrocytes count (nu mber/volume)on 04-07-2021 RBC (Bld) [#/Vol] 4.18 10*6/uL 4.6-6.2 [facility] Work Phone: Blood hemoglobin measurement (mass/volume)on 04-07-2021 Hemoglobin (Bld) [Mass/Vol] 12.9 g/dL 13.0-16.5 [facility] Work Phone: Blood lymphocytes/100 leukoc yteson 04-07-2021 Lymphocytes/100 WBC (Bld) 19.2 % 19-41 [facility] Work Phone: [phone] Blood monocytes/100 leukocyt eson 04-07-2021 Monocytes/100 WBC (Bld) 13.0 % 0-10 [facility] Work Phone: Blood platelet mean volumeon 04-07-2021 Platelet mean volume (Bld) [Entitic vol] 10.9 fL 6.2-12.0 [facility] Work Phone: Determination of erythrocyte mean corpuscular volume (MCV)on 04-07-2021 MCV (RBC) [Entitic vol] 92.6 fL 80-94 [facility] Work Phone: Hematocrit Auto (Bld) [Volum e fraction]on 04-07-2021 Hematocrit (Bld) [Volume fraction] 38.7 % 40-54 [facility] Work Phone: Laboratory - Hematology and Cell countson 04-07-2021 Basophils/100 WBC (Unsp spec) 0.6 % 0-1 [facility] Work Phone: Erythrocyte distribution width (RBC) [Entitic vol] 45.8 fL 35.1-43.9 [facility] Work Phone: Erythrocyte distribution width (RBC) [Ratio] 13.5 % 11.6-14.6 [facility] Work Phone: Immature granulocytes/100 WBC (Bld) 0.500 % 0.0-0.9 [facility] Work Phone: Comment on above: IG% - Immature Granu locytes (promyelocytes, myelocytes and metamyelocytes) > 1% indicates that a LEFT SHIFT is Present. MCH (RBC) [Entitic mass] 30.9 pg 27.0-32.0 [facility] Work Phone: Neutrophils/100 WBC (Bld) 66.0 % 47-70 [facility] Work Phone: Nucleated RBC/100 WBC (Bld) [Ratio] 0 % 0-5 [facility] Work Phone: MCHC Auto (RBC) [Mass/Vol]on 04-07-2021 MCHC (RBC) [Mass/Vol] 33.3 g/dL 32-36 [facility] Work Phone: Platelets bldon 04-07-2021 Platelets (Bld) [#/Vol] 210 10*3/uL 150-450 [facility] Work Phone: CULTURE BLOODon 03-25-2021 Microscopic examination of blood, culture CULTURE BLOOD --> Status: F No growth at 5 days. Normal [facility] [employer] Comment on above: Performed By: #### C /BLD ####[facility] [employer] [id number] [place] [address] CULTURE BLOOD (Two)on 2020 Microscopic examination of blood, culture CULTURE BLOOD (Two) --> Status: F No growth at 5 days. Normal [facility] Comment on above: Performed By: #### C /BLT ####[facility] [facility] [place] [address] Basic Metabolic Panelon 03-02 Calcium [Mass/Vol] 8.8 mg/dL Normal 8.4-10.4 [facility] Comment on above: Performed By: #### H EMDF, BMP3 #### [facility] [address] [place] [address] Glucose [Mass/Vol] 103 mg/dL High 70-100 [facility] Comment on above: Performed By: #### H EMDF, BMP3 #### [facility] [address] [place] [address] Anion gap [Moles/Vol] 5 mmol/L Normal 3-13 [facility] Comment on above: Performed By: #### H EMDF, BMP3 #### [facility] [address] [place] [address] CO2 [Moles/Vol] 26 mmol/L Normal 22-30 [facility] Comment on above: Performed By: #### H EMDF, BMP3 #### [facility] [address] [place] [address] Creatinine [Mass/Vol] 0.49 mg/dL Low 0.52-1.25 [facility] Comment on above: Performed By: #### H EMDF, BMP3 #### [facility] [address] [place] [address] eGFR OTHER > 90.0 Normal >60 [facility] Comment on above: Result Comment: KDIG O guidelines provide the following GFR categories: Stage GFR(ml/min/1.73 m2) Terms G1 >=90 Normal or high G2 60-89 Mildly decreased* G3a 45-59 Mildly to moderately decreased G3b 30-44 Moderately to severely decreased G4 15-29 Severely decreased G5 <15 Kidney failure *Relative to young adult level. In the absence of evidence of kidney damage, neither GFR category G1 nor G2 fulfill the criteria for CKD. The CKD-EPI equation is validated in individuals 18 years of age and older. Currently the best equation for estimating glomerular filtration rate (GFR) from serum creatinine in children is the Bedside Noriega equation. It is less accurate in patients with extremes of muscle mass, restriction of dietary protein, ingestion of creatine, extra-renal metabolism of creatinine, or treatment with medications that affect renal tubular creatinine secretion. Performed By: #### Kerri BRAR BMP3 #### [facility] [address] [place] [address] GFR/1.73 sq M.predicted among blacks MDRD (S/P/Bld) [Vol rate/Area] mL/min/{1.73_m2} Normal >60 [facility] Comment on above: Performed By: #### Kerri BRAR BMP3 #### [facility] [address] [place] [address] Urea nitrogen [Mass/Vol] 30 mg/dL High 7-17 [facility] Comment on above: Performed By: #### Kerri BRAR BMP3 #### [facility] [address] [place] [address] Chloride [Moles/Vol] 112 mmol/L High 98-107 [facility] Comment on above: Performed By: #### Kerri BRAR BMP3 #### [facility] [address] [place] [address] Potassium [Moles/Vol] 4.1 mmol/L Normal 3.5-5.1 [facility] Comment on above: Performed By: #### Kerri BRAR BMP3 #### [facility] [address] [place] [address] Sodium [Moles/Vol] 142 mmol/L Normal 135-145 [facility] Comment on above: Performed By: #### Kerri BRAR BMP3 #### [facility] [address] [place] [address] Anion gap [Moles/Vol] 5 mmol/L 3 - 13 mmol/L [facility] Work Phone: Calcium [Mass/Vol] 8.8 mg/dL 8.4 - 10. 4 mg/dL [facility] Work Phone: Chloride [Moles/Vol] 112 mmol/L High 98 - 10 7 mmol/L [facility] Work Phone: CO2 [Moles/Vol] 26 mmol/L 22 - 30 mmol/L [facility] Work Phone: Creatinine [Mass/Vol] 0.49 mg/dL Low 0.52 - 1.25 mg/dL [facility] Work Phone: EGFR IF NonAfrican Chilean >90.0 >60 mL/min [facility] Work Phone: Comment on above: KDIGO guidelines pro vide the following GFR categories: Stage GFR(ml/min/1.73 m2) Terms G1 >=90 Normal or high G2 60-89 Mildly decreased* G3a 45-59 Mildly to moderately decreased G3b 30-44 Moderately to severely decreased G4 15-29 Severely decreased G5 <15 Kidney failure *Relative to young adult level. In the absence of evidence of kidney damage, neither GFR category G1 nor G2 fulfill the criteria for CKD. The CKD-EPI equation is validated in individuals 18 years of age and older. Currently the best equation for estimating glomerular filtration rate (GFR) from serum creatinine in children is the Bedside Noriega equation. It is less accurate in patients with extremes of muscle mass, restriction of dietary protein, ingestion of creatine, extra-renal metabolism of creatinine, or treatment with medications that affect renal tubular creatinine secretion. GFR/1.73 sq M.predicted among blacks MDRD (S/P/Bld) [Vol rate/Area] mL/min/{1.73_m2} >60 mL/min [facility] Work Phone: Glucose [Mass/Vol] 103 mg/dL High 70 - 100 mg/dL [facility] Work Phone: Interpretation and review of laboratory results Abnormal [facility] Work Phone: Potassium [Moles/Vol] 4.1 mmol/L 3.5 - 5.1 mmol/L [facility] Work Phone: Sodium [Moles/Vol] 142 mmol/L 135 - 145 mmol/L [facility] Work Phone: Urea nitrogen (BldV) [Mass/Vol] 30 mg/dL High 7 - 17 mg/dL [facility] Work Phone: Test Performed by [employer], [address] [place], [place] [address] [facility] LAB [facility] Work Phone: CBC Auto Differentialon 11-2 Hematocrit (Bld) [Volume fraction] 35.0 % Low 40.0 - 52.0 % [facility] Work Phone: Hemoglobin.gastrointest inal spec 1 Ql (Stl) 11.7 g/dL Low 13.0 - 18.0 g/dL [facility] Work Phone: Interpretation and review of laboratory results Abnormal [facility] Work Phone: [phone] MCH (RBC) [Entitic mass] 31.0 pg 26.0 - 34.0 pg [facility] Work Phone: [phone] MCHC (RBC) [Mass/Vol] 33.4 % 32.0 - 36.0 % [facility] Work Phone: MCV (RBC) [Entitic vol] 92.7 fL 80.0 - 98.0 fL [employer] Work Phone: Platelet distribution width (Bld) [Ratio] 13.4 % 11.5 - 14.5 % [employer] Work Phone: Platelet mean volume (Bld) [Entitic vol] 8.6 fL 7.4 - 10.4 fL [employer] Work Phone: [phone] Platelets (Bld) [#/Vol] 236 10*3/uL 140 - 440 10*3/uL [employer] Work Phone: RBC (Bld) [#/Vol] 3.77 10*6/uL Low 4.40 - 5.9 0 10*6/uL [employer] Work Phone: WBC (Bld) [#/Vol] 12.8 10*3/uL High 3.6 - 10.7 10*3/uL [facility] Work Phone: Test Performed by [facility], [address] [place], [place] [address] [facility] LAB [facility] Work Phone: Glucose,Bedsideon 03-24-2021 Glucose [Mass/Vol] 93 mg/dL Normal 70-100 [facility] Comment on above: Result Comment: Test performed by glucose meter. Results may be 10%-15% lower than serum/plasma values. (CLIA ID [id number]) Performed By: #### H EMDF, BMP3 #### [employer] [address] [place] [address] Glucose [Mass/Vol] 166 mg/dL High 70-100 [facility] Comment on above: Result Comment: Test performed by glucose meter. Results may be 10%-15% lower than serum/plasma values. (CLIA ID [id number]) Performed By: #### B GLU ####[facility] [facility] [place] [address] Hemogram w/ Autodiffon 03-24 Erythrocyte distribution width (RBC) [Ratio] 13.4 % Normal 11.5-14.5 [facility] Comment on above: Performed By: #### H EMDF, BMP3 #### [employer] [address] [place] [address] Hematocrit (Bld) [Volume fraction] 35.0 % Low 40.0-52.0 [facility] Comment on above: Performed By: #### H EMDF, BMP3 #### [facility] [address] [place] [address] Hemoglobin (Bld) [Mass/Vol] 11.7 g/dL Low 13.0-18.0 [facility] Comment on above: Performed By: #### H EMDF, BMP3 #### [employer] [address] [place] [address] MCH (RBC) [Entitic mass] 31.0 pg Normal 26.0-34.0 [facility] Comment on above: Performed By: #### H EMDF, BMP3 #### [employer] [address] [place] [address] MCHC 33.4 % Normal 32.0-36.0 [facility] Comment on above: Performed By: #### H EMDF, BMP3 #### [facility] [address] [place] [address] MCV (RBC) [Entitic vol] 92.7 fL Normal 80.0-98.0 S [facility] Comment on above: Performed By: #### H EMDF, BMP3 #### [facility] [address] [place] [address] Platelet mean volume (Bld) [Entitic vol] 8.6 fL Normal 7.4-10.4 [facility] Comment on above: Performed By: #### H EMDF, BMP3 #### [facility] [address] [place] [address] Platelets (Bld) [#/Vol] 236 10*3/uL Normal 140-440 [facility] Comment on above: Performed By: #### H EMDF, BMP3 #### [facility] [address] [place] [address] RBC (Bld) [#/Vol] 3.77 10*6/uL Low 4.40-5.90 [facility] Comment on above: Performed By: #### H EMDF, BMP3 #### [facility] [address] [place] [address] WBC (Bld) [#/Vol] 12.8 10*3/uL High 3.6-10.7 [facility] Comment on above: Performed By: #### H EMDF, BMP3 #### [facility] [address] [place] [address] Manual Diffon 03-24-2021 Abs Lymph Cnt 1.7 10*3/uL Normal 1.1-4.5 [facility] Comment on above: Performed By: #### H EMDF, BMP3 #### [facility] [address] [place] [address] Abs Monocyte Cnt 0.8 10*3/uL Normal 0.2-1.1 [facility] Comment on above: Performed By: #### H EMDF, BMP3 #### [facility] [address] [place] [address] Abs Neutrophile Cnt 10.1 10*3/uL High 2.2-8.2 [facility] Comment on above: Performed By: #### H EMDF, BMP3 #### [facility] [address] [place] [address] Anisocytosis Slight Normal [facility] Comment on above: Performed By: #### H EMDF, BMP3 #### [facility] [address] [place] [address] Atypical Lymphocytes 2 % Abnormal <1 [facility] Comment on above: Performed By: #### H EMDF, BMP3 #### [facility] [address] [place] [address] Abdoul Cells Slight Normal [facility] Comment on above: Performed By: #### H EMDF, BMP3 #### [facility] [address] [place] [address] Lymphocytes 11 % Low 20-40 [facility] Comment on above: Performed By: #### H EMDF, BMP3 #### [facility] [address] [place] [address] Monocytes 6 % Normal 2-10 [facility] Comment on above: Performed By: #### H EMDF, BMP3 #### [facility] [address] [place] [address] Myelocytes 2 % Abnormal <1 [facility] Comment on above: Performed By: #### H EMDF, BMP3 #### [facility] [address] [place] [address] Ovalocytes Slight Normal [facility] Comment on above: Performed By: #### H EMDF, BMP3 #### [facility] [address] [place] [address] Poikilocytosis Slight Normal [facility] Comment on above: Performed By: #### H EMDF, BMP3 #### [facility] [address] [place] [address] Polychromasia Slight Normal [facility] Comment on above: Performed By: #### H EMDF, BMP3 #### [facility] [address] [place] [address] RBC Morphology ABNORMAL Normal [facility] Comment on above: Performed By: #### H EMDF, BMP3 #### [facility] [address] [place] [address] Seg Neutrophils 79 % Normal 40-80 [facility] Comment on above: Performed By: #### H EMDF, BMP3 #### [facility] [address] [place] [address] Tear Drop Forms Slight Normal [facility] Comment on above: Performed By: #### H EMDF, BMP3 #### [facility] [address] [place] [address] Abs Baso Cnt 0.0 10*3/uL Normal 0.0-0.2 [facility] Comment on above: Performed By: #### H EMDF, BMP3 #### [facility] [address] [place] [address] Abs Eosin Cnt 0.0 10*3/uL Normal 0.0-0.5 [facility] Comment on above: Performed By: #### H EMDF, BMP3 #### [facility] [address] [place] [address] Bands 0 % Normal 0-3 [facility] Comment on above: Performed By: #### H EMDF, BMP3 #### [facility] [address] [place] [address] Basophils 0 % Normal 0-2 [facility] Comment on above: Performed By: #### H EMDF, BMP3 #### [facility] [address] [place] [address] Cells counted 100 Normal [facility] Comment on above: Performed By: #### H EMDF, BMP3 #### [facility] [address] [place] [address] Eosinophils 0 % Low 1-6 [facility] Comment on above: Performed By: #### H EMDF, BMP3 #### [facility] [address] [place] [address] Manual Differentialon 2020 Absolute Baso # 0.0 10*3/uL 0.0 - 0.2 10*3/uL [facility] Work Phone: Absolute Eos # 0.0 10*3/uL 0.0 - 0.5 10*3/uL [facility] Work Phone: Absolute Lymph # 1.7 10*3/uL 1.1 - 4.5 10*3/uL [facility] Work Phone: Absolute Clare # 0.8 10*3/uL 0.2 - 1.1 10*3/uL [facility] Work Phone: Absolute Neut # 10.1 10*3/uL High 2.2 - 8.2 10*3/uL [facility] Work Phone: Anisocytosis Slight [facility] Work Phone: Atypical Lymphocytes 2 % Abnormal <1 [facility] Work Phone: Bands 0 % 0 - 3 % [facility] Work Phone: Basophils/100 WBC (Bld) 0 % 0 - 2 % S [facility] Work Phone: Abdoul Cells Slight [facility] Work Phone: Eosinophils/100 WBC (Bld) 0 % Low 1 - 6 % [facility] Work Phone: Interpretation and review of laboratory results Abnormal [facility] Work Phone: Lymphocytes/100 WBC (Bld) 11 % Low 20 - 40 % [facility] Work Phone: Monocytes/100 WBC (Bld) 6 % 2 - 10 % S [facility] Work Phone: Myelocytes 2 % Abnormal <1 [facility] Work Phone: Ovalocytes Slight [facility] Work Phone: Poikilocytes Slight [facility] Work Phone: Polychromasia Slight [facility] Work Phone: RBC (Bld) [#/Vol] ABNORMAL [facility] Work Phone: Seg Neutrophils 79 % 40 - 80 % [facility] Work Phone: Tear Drop Cells Slight [facility] Work Phone: TOTAL CELLS COUNTED 100 [facility] Work Phone: Test Performed by [facility], [address] [place] [address] [facility] Work Phone: POCT Glucoseon 03-24-2020 Glucose [Mass/Vol] 93 mg/dL 70 - 100 mg/dL [facility] Work Phone: Comment on above: Test performed by gl ucose meter. Results may be 10%-15% lower than serum/plasma values. (CLIA ID [id number]) Test Performed by [facility], [address] [place] [address] [facility] Work Phone: Basic Metabolic Panelon 03-02 Calcium [Mass/Vol] 8.8 mg/dL Normal 8.4-10.4 [facility] Comment on above: Performed By: #### H EMDF, BMP3 #### [facility] [address] [place] [address] Glucose [Mass/Vol] 143 mg/dL High 70-100 [facility] Comment on above: Performed By: #### H EMDF, BMP3 #### [facility] [address] [place] [address] Anion gap [Moles/Vol] 8 mmol/L Normal 3-13 [facility] Comment on above: Performed By: #### H EMDF, BMP3 #### [facility] [address] [place] [address] CO2 [Moles/Vol] 24 mmol/L Normal 22-30 [facility] Comment on above: Performed By: #### H EMDF, BMP3 #### [facility] [address] [place] [address] Creatinine [Mass/Vol] 0.47 mg/dL Low 0.52-1.25 [facility] Comment on above: Performed By: #### H EMDF, BMP3 #### [facility] [address] [place] [address] eGFR OTHER > 90.0 Normal >60 [facility] Comment on above: Result Comment: KDIG O guidelines provide the following GFR categories: Stage GFR(ml/min/1.73 m2) Terms G1 >=90 Normal or high G2 60-89 Mildly decreased* G3a 45-59 Mildly to moderately decreased G3b 30-44 Moderately to severely decreased G4 15-29 Severely decreased G5 <15 Kidney failure *Relative to young adult level. In the absence of evidence of kidney damage, neither GFR category G1 nor G2 fulfill the criteria for CKD. The CKD-EPI equation is validated in individuals 18 years of age and older. Currently the best equation for estimating glomerular filtration rate (GFR) from serum creatinine in children is the Bedside Noriega equation. It is less accurate in patients with extremes of muscle mass, restriction of dietary protein, ingestion of creatine, extra-renal metabolism of creatinine, or treatment with medications that affect renal tubular creatinine secretion. Performed By: #### H MAYKEL BMP3 #### [facility] [address] [place] [address] GFR/1.73 sq M.predicted among blacks MDRD (S/P/Bld) [Vol rate/Area] mL/min/{1.73_m2} Normal >60 [facility] Comment on above: Performed By: #### H MAYKEL BMP3 #### [facility] [address] [place] [address] Urea nitrogen [Mass/Vol] 32 mg/dL High 7-17 [facility] Comment on above: Performed By: #### H ALCIRAF BMP3 #### [facility] [address] [place] [address] Chloride [Moles/Vol] 110 mmol/L High 98-107 [facility] Comment on above: Performed By: #### H EMDF BMP3 #### [facility] [address] [place] [address] Potassium [Moles/Vol] 3.9 mmol/L Normal 3.5-5.1 [facility] Comment on above: Performed By: #### H EMDF, BMP3 #### [facility] [address] [place] [address] Sodium [Moles/Vol] 142 mmol/L Normal 135-145 [facility] Comment on above: Performed By: #### H MAYKEL BMP3 #### [facility] [address] [place] [address] Anion gap [Moles/Vol] 8 mmol/L 3 - 13 mmol/L [employer] Work Phone: Calcium [Mass/Vol] 8.8 mg/dL 8.4 - 10. 4 mg/dL [employer] Work Phone: Chloride [Moles/Vol] 110 mmol/L High 98 - 10 7 mmol/L [facility] Work Phone: CO2 [Moles/Vol] 24 mmol/L 22 - 30 mmol/L [employer] Work Phone: Creatinine [Mass/Vol] 0.47 mg/dL Low 0.52 - 1.25 mg/dL [employer] Work Phone: EGFR IF NonAfrican Chilean >90.0 >60 mL/min [employer] Work Phone: Comment on above: KDIGO guidelines pro vide the following GFR categories: Stage GFR(ml/min/1.73 m2) Terms G1 >=90 Normal or high G2 60-89 Mildly decreased* G3a 45-59 Mildly to moderately decreased G3b 30-44 Moderately to severely decreased G4 15-29 Severely decreased G5 <15 Kidney failure *Relative to young adult level. In the absence of evidence of kidney damage, neither GFR category G1 nor G2 fulfill the criteria for CKD. The CKD-EPI equation is validated in individuals 18 years of age and older. Currently the best equation for estimating glomerular filtration rate (GFR) from serum creatinine in children is the Bedside Noriega equation. It is less accurate in patients with extremes of muscle mass, restriction of dietary protein, ingestion of creatine, extra-renal metabolism of creatinine, or treatment with medications that affect renal tubular creatinine secretion. GFR/1.73 sq M.predicted among blacks MDRD (S/P/Bld) [Vol rate/Area] mL/min/{1.73_m2} >60 mL/min [facility] Work Phone: Glucose [Mass/Vol] 143 mg/dL High 70 - 100 mg/dL [employer] Work Phone: Interpretation and review of laboratory results Abnormal [employer] Work Phone: Potassium [Moles/Vol] 3.9 mmol/L 3.5 - 5.1 mmol/L [employer] Work Phone: Sodium [Moles/Vol] 142 mmol/L 135 - 145 mmol/L [facility] Work Phone: Urea nitrogen (BldV) [Mass/Vol] 32 mg/dL High 7 - 17 mg/dL [facility] Work Phone: Test Performed by [facility], [address] [place], [place] [id number] [place] [address] LAB [facility] Work Phone: CBC Auto Differentialon 11-2 Absolute Baso # 0.0 10*3/uL 0.0 - 0.2 10*3/uL [facility] Work Phone: Absolute Neut # 13.5 10*3/uL High 1.8 - 7.0 10*3/uL [employer] Work Phone: Basophils/100 WBC (Bld) 0.3 % 0.0 - 2.0 % [employer] Work Phone: Eosinophils (Bld) [#/Vol] 0.0 10*3/uL 0.0 - 0.5 10*3/uL [facility] Work Phone: Eosinophils/100 WBC (Bld) 0.0 % Low 1.0 - 6.0 % [facility] Work Phone: Granulocytes/100 WBC (Bld) 89.5 % High 40.0 - 80.0 % [facility] Work Phone: Hematocrit (Bld) [Volume fraction] 36.5 % Low 40.0 - 52.0 % [employer] Work Phone: Hemoglobin.gastrointest inal spec 1 Ql (Stl) 12.4 g/dL Low 13.0 - 18.0 g/dL [employer] Work Phone: Interpretation and review of laboratory results Abnormal [facility] Work Phone: Lymphocytes (Bld) [#/Vol] 0.7 10*3/uL Low 1.0 - 4.3 10*3/uL [employer] Work Phone: Lymphocytes/100 WBC (Bld) 4.8 % Low 20.0 - 40.0 % [employer] Work Phone: MCH (RBC) [Entitic mass] 31.3 pg 26.0 - 34.0 pg [employer] Work Phone: MCHC (RBC) [Mass/Vol] 34.1 % 32.0 - 36.0 % [employer] Work Phone: MCV (RBC) [Entitic vol] 92.0 fL 80.0 - 98.0 fL [employer] Work Phone: Monocytes (Bld) [#/Vol] 0.8 10*3/uL 0.0 - 0.8 10*3/uL [employer] Work Phone: Monocytes/100 WBC (Bld) 5.4 % 2.0 - 10.0 % [employer] Work Phone: Platelet distribution width (Bld) [Ratio] 13.2 % 11.5 - 14.5 % [employer] Work Phone: Platelet mean volume (Bld) [Entitic vol] 9.0 fL 7.4 - 10.4 fL [employer] Work Phone: Platelets (Bld) [#/Vol] 211 10*3/uL 140 - 440 10*3/uL [employer] Work Phone: RBC (Bld) [#/Vol] 3.96 10*6/uL Low 4.40 - 5.9 0 10*6/uL [employer] Work Phone: WBC (Bld) [#/Vol] 15.1 10*3/uL High 3.6 - 10.7 10*3/uL [employer] Work Phone: Test Performed by [employer] [facility], [address] [place], [place] [id number] [place] [address] LAB [employer] Work Phone: Glucose,Bedsideon 03-23-2021 Glucose [Mass/Vol] 122 mg/dL High 70-100 [facility] Comment on above: Result Comment: Test performed by glucose meter. Results may be 10%-15% lower than serum/plasma values. (CLIA ID [id number]) Performed By: #### H MAYKEL BMP3 #### [facility] [address] [place] [address] Glucose [Mass/Vol] 129 mg/dL High 70-100 [facility] Comment on above: Test performed by gl ucose meter. Results may be 10%-15% lower than serum/plasma values. (CLIA ID [id number]) Result Comment: Test performed by glucose meter. Results may be 10%-15% lower than serum/plasma values. (CLIA ID [id number]) Performed By: #### B GLU ####[place] [address] [place] [address] Glucose [Mass/Vol] 136 mg/dL High 70-100 [facility] Comment on above: Result Comment: Test performed by glucose meter. Results may be 10%-15% lower than serum/plasma values. (CLIA ID [id number]) Performed By: #### B GLU #### [facility] [address] [place] [address] Hemogram w/ Autodiffon 03-23 Abs Baso Cnt 0.0 10*3/uL Normal 0.0-0.2 [facility] Comment on above: Performed By: #### H MAYKEL BMP3 #### [facility] [address] [place] [address] Abs Neutrophile Cnt 13.5 10*3/uL High 1.8-7.0 [facility] Comment on above: Performed By: #### H MAYKEL BMP3 #### [facility] [address] [place] [address] Basophils/100 WBC (Bld) 0.3 % Normal 0.0-2.0 S [facility] Comment on above: Performed By: #### H MAYKEL BMP3 #### [facility] [address] [place] [place] [address] Eosinophils (Bld) [#/Vol] 0.0 10*3/uL Normal 0.0-0.5 [facility] Comment on above: Performed By: #### H EMDF, BMP3 #### [facility] [address] [place] [address] Eosinophils/100 WBC (Bld) 0.0 % Low 1.0-6.0 [facility] Comment on above: Performed By: #### H EMDF, BMP3 #### [facility] [address] [place] [address] Erythrocyte distribution width (RBC) [Ratio] 13.2 % Normal 11.5-14.5 [facility] Comment on above: Performed By: #### H EMDF, BMP3 #### [facility] [address] [place] [address] Granulocytes/100 WBC (Bld) 89.5 % High 40.0-80.0 [facility] Comment on above: Performed By: #### H EMDF, BMP3 #### [facility] [address] [place] [address] Hematocrit (Bld) [Volume fraction] 36.5 % Low 40.0-52.0 [facility] Comment on above: Performed By: #### H EMDF, BMP3 #### [facility] [address] [place] [address] Hemoglobin (Bld) [Mass/Vol] 12.4 g/dL Low 13.0-18.0 [facility] Comment on above: Performed By: #### H EMDF, BMP3 #### [facility] [address] [place] [address] Lymphocytes (Bld) [#/Vol] 0.7 10*3/uL Low 1.0-4.3 [facility] Comment on above: Performed By: #### H EMDF, BMP3 #### [facility] [address] [place] [address] Lymphocytes/100 WBC (Bld) 4.8 % Low 20.0-40.0 [facility] Comment on above: Performed By: #### H EMDF, BMP3 #### [facility] [address] [place] [address] MCH (RBC) [Entitic mass] 31.3 pg Normal 26.0-34.0 [facility] Comment on above: Performed By: #### H EMDF, BMP3 #### [facility] [address] [place] [address] MCHC 34.1 % Normal 32.0-36.0 [facility] Comment on above: Performed By: #### H EMDF, BMP3 #### [facility] [address] [place] [address] MCV (RBC) [Entitic vol] 92.0 fL Normal 80.0-98.0 S [facility] Comment on above: Performed By: #### H EMDF, BMP3 #### [facility] [address] [place] [address] Monocytes (Bld) [#/Vol] 0.8 10*3/uL Normal 0.0-0.8 [facility] Comment on above: Performed By: #### H EMDF, BMP3 #### [facility] [address] [place] [address] Monocytes/100 WBC (Bld) 5.4 % Normal 2.0-10.0 S [facility] Comment on above: Performed By: #### H EMDF, BMP3 #### [facility] [address] [place] [address] Platelet mean volume (Bld) [Entitic vol] 9.0 fL Normal 7.4-10.4 [facility] Comment on above: Performed By: #### H EMDF, BMP3 #### [facility] [address] [place] [address] Platelets (Bld) [#/Vol] 211 10*3/uL Normal 140-440 [facility] Comment on above: Performed By: #### H EMDF, BMP3 #### [facility] [address] [place] [address] RBC (Bld) [#/Vol] 3.96 10*6/uL Low 4.40-5.90 [facility] Comment on above: Performed By: #### H EMDF, BMP3 #### [facility] [address] [place] [address] WBC (Bld) [#/Vol] 15.1 10*3/uL High 3.6-10.7 [facility] Comment on above: Performed By: #### H [facility] #### [facility] [address] [place] [address] No Panel Informationon 03-23 Interpretation and review of laboratory results Abnormal [facility] Work Phone: Test Performed by [facility], [facility] [address] LAB [facility] Work Phone: POCT Glucoseon 03-23-2021 Glucose [Mass/Vol] 166 mg/dL High 70 - 100 mg/dL [facility] Comment on above: Test performed by gl ucose meter. Results may be 10%-15% lower than serum/plasma values. (CLIA ID [id number]) Interpretation and review of laboratory results Abnormal [facility] Test Performed by [facility], [address] LAB [facility] Glucose [Mass/Vol] 122 mg/dL High 70 - 100 mg/dL [facility] Work Phone: Comment on above: Test performed by gl ucose meter. Results may be 10%-15% lower than serum/plasma values. (CLIA ID [id number]) Glucose [Mass/Vol] 136 mg/dL High 70 - 100 mg/dL [facility] Comment on above: Test performed by gl ucose meter. Results may be 10%-15% lower than serum/plasma values. (CLIA ID [id number]) Interpretation and review of laboratory results Abnormal [facility] Test Performed by [facility], [facility] [address] LAB [facility] CBC Auto Differentialon 03-02 Absolute Baso # 0.0 10*3/uL 0.0 - 0.2 10*3/uL [facility] Absolute Neut # 12.3 10*3/uL High 1.8 - 7.0 10*3/uL [facility] Basophils/100 WBC (Bld) 0.2 % 0.0 - 2.0 % [facility] Eosinophils (Bld) [#/Vol] 0.0 10*3/uL 0.0 - 0.5 10*3/uL [facility] Eosinophils/100 WBC (Bld) 0.0 % Low 1.0 - 6.0 % [facility] Granulocytes/100 WBC (Bld) 92.7 % High 40.0 - 80.0 % [facility] Hematocrit (Bld) [Volume fraction] 35.9 % Low 40.0 - 52.0 % [facility] Hemoglobin.gastrointest inal spec 1 Ql (Stl) 12.4 g/dL Low 13.0 - 18.0 g/dL [facility] Interpretation and review of laboratory results Abnormal [facility] Lymphocytes (Bld) [#/Vol] 0.5 10*3/uL Low 1.0 - 4.3 10*3/uL [facility] Lymphocytes/100 WBC (Bld) 3.6 % Low 20.0 - 40.0 % [facility] MCH (RBC) [Entitic mass] 31.6 pg 26.0 - 34.0 pg [facility] MCHC (RBC) [Mass/Vol] 34.6 % 32.0 - 36.0 % [facility] MCV (RBC) [Entitic vol] 91.2 fL 80.0 - 98.0 fL [facility] Monocytes (Bld) [#/Vol] 0.5 10*3/uL 0.0 - 0.8 10*3/uL [facility] Monocytes/100 WBC (Bld) 3.5 % 2.0 - 10.0 % [facility] Platelet distribution width (Bld) [Ratio] 12.8 % 11.5 - 14.5 % [facility] Platelet mean volume (Bld) [Entitic vol] 9.5 fL 7.4 - 10.4 fL [facility] Platelets (Bld) [#/Vol] 158 10*3/uL 140 - 440 10*3/uL [facility] RBC (Bld) [#/Vol] 3.93 10*6/uL Low 4.40 - 5.9 0 10*6/uL [facility] WBC (Bld) [#/Vol] 13.3 10*3/uL High 3.6 - 10.7 10*3/uL [facility] Test Performed by [facility] [employer] [facility], [address] [place], [place] [id number] [place] [address] LAB [facility] Glucose,Bedsideon 03-22-2021 Glucose [Mass/Vol] 134 mg/dL High 70-100 [facility] Comment on above: Result Comment: Test performed by glucose meter. Results may be 10%-15% lower than serum/plasma values. (CLIA ID [id number]) Performed By: #### H EMDF, BMP3 #### [facility] [address] [place] [address] Glucose [Mass/Vol] 190 mg/dL High 70-100 [facility] Comment on above: Result Comment: Test performed by glucose meter. Results may be 10%-15% lower than serum/plasma values. (CLIA ID [id number]) Performed By: #### B GLU #### [facility] [address] [place] [place] [address] Glucose [Mass/Vol] 200 mg/dL [facility] [address] [place] [address] Comment on above: Result Comment: Test performed by glucose meter. Results may be 10%-15% lower than serum/plasma values. (CLIA ID [id number]) Performed By: #### B GLU #### [facility] [address] [place] [address] Glucose [Mass/Vol] 181 mg/dL [facility] [address] [facility] Comment on above: Result Comment: Test performed by glucose meter. Results may be 10%-15% lower than serum/plasma values. (CLIA ID [id number]) Performed By: #### B GLU #### [facility] [address] [place] [address] Glucose [Mass/Vol] 186 mg/dL [facility] [address] [place] [address] Comment on above: Result Comment: Test performed by glucose meter. Results may be 10%-15% lower than serum/plasma values. (CLIA ID [id number]) Performed By: #### B GLU #### [facility] [address] [place] [address] Hemoglobin A1Con 03-22-2021 Glucose [Mass/Vol] 108 mg/dL Normal [facility] Comment on above: Performed By: #### B GLU #### [facility] [address] [place] [address] HbA1c (Bld) [Mass fraction] 5.4 % Normal [facility] Comment on above: Result Comment: [place] less than 5.7% Prediabetes 5.7% to 6.4% Diabetes 6.5% or higher --HgbA1C levels may not be accurate in patients who have renal disease, received recent blood transfusions, are anemic, or who have dyshemoglobinemia. Performed By: #### B GLU #### [facility] [address] [place] [address] HbA1c (Bld) [Mass fraction] 5.4 % [facility] Comment on above: Normal less than 5.7 % Prediabetes 5.7% to 6.4% Diabetes 6.5% or higher --HgbA1C levels may not be accurate in patients who have renal disease, received recent blood transfusions, are anemic, or who have dyshemoglobinemia. Magnesium [Mass/Vol] 108 mg/dL [facility] Test Performed by [facility], [facility] [address] [place] [address] [facility] LAB [facility] Hemogram w/ Autodiffon 03-22 Abs Baso Cnt 0.0 10*3/uL Normal 0.0-0.2 [facility] Comment on above: Performed By: #### B GLU #### [facility] [address] [place] [address] Abs Neutrophile Cnt 12.3 10*3/uL High 1.8-7.0 [facility] Comment on above: Performed By: #### B GLU #### [facility] [address] [place] [address] Basophils/100 WBC (Bld) 0.2 % Normal 0.0-2.0 [facility] Comment on above: Performed By: #### B GLU #### [facility] [address] [place] [address] Eosinophils (Bld) [#/Vol] 0.0 10*3/uL Normal 0.0-0.5 [facility] Comment on above: Performed By: #### B GLU #### [facility] [address] [place] [address] Eosinophils/100 WBC (Bld) 0.0 % Low 1.0-6.0 [facility] Comment on above: Performed By: #### B GLU #### [facility] [address] [place] [address] Erythrocyte distribution width (RBC) [Ratio] 12.8 % Normal 11.5-14.5 [facility] Comment on above: Performed By: #### B GLU #### [facility] [address] [place] [address] Granulocytes/100 WBC (Bld) 92.7 % High 40.0-80.0 [facility] Comment on above: Performed By: #### B GLU #### [facility] [address] [place] [address] Hematocrit (Bld) [Volume fraction] 35.9 % Low 40.0-52.0 [facility] Comment on above: Performed By: #### B GLU #### [facility] [address] [place] [address] Hemoglobin (Bld) [Mass/Vol] 12.4 g/dL Low 13.0-18.0 [facility] Comment on above: Performed By: #### B GLU #### [facility] [address] [place] [address] Lymphocytes (Bld) [#/Vol] 0.5 10*3/uL Low 1.0-4.3 [facility] Comment on above: Performed By: #### B GLU #### [facility] [address] [place] [address] Lymphocytes/100 WBC (Bld) 3.6 % Low 20.0-40.0 [facility] Comment on above: Performed By: #### B GLU #### [facility] [address] [place] [address] MCH (RBC) [Entitic mass] 31.6 pg Normal 26.0-34.0 [facility] Comment on above: Performed By: #### B GLU #### [facility] [address] [place] [address] MCHC 34.6 % Normal 32.0-36.0 [facility] Comment on above: Performed By: #### B GLU #### [facility] [address] [place] [address] MCV (RBC) [Entitic vol] 91.2 fL Normal 80.0-98.0 S [facility] Comment on above: Performed By: #### B GLU #### [facility] [address] [place] [address] Monocytes (Bld) [#/Vol] 0.5 10*3/uL Normal 0.0-0.8 [facility] Comment on above: Performed By: #### B GLU #### [facility] [address] [place] [address] Monocytes/100 WBC (Bld) 3.5 % Normal 2.0-10.0 S [facility] Comment on above: Performed By: #### B GLU #### [facility] [address] [place] [address] Platelet mean volume (Bld) [Entitic vol] 9.5 fL Normal 7.4-10.4 [facility] Comment on above: Performed By: #### B GLU #### [facility] [address] [place] [address] Platelets (Bld) [#/Vol] 158 10*3/uL Normal 140-440 [facility] Comment on above: Performed By: #### B GLU #### [facility] [address] [place] [address] RBC (Bld) [#/Vol] 3.93 10*6/uL Low 4.40-5.90 [facility] Comment on above: Performed By: #### B GLU #### [facility] [address] [place] [address] WBC (Bld) [#/Vol] 13.3 10*3/uL High 3.6-10.7 [facility] Comment on above: Performed By: #### B GLU #### [facility] [address] [place] [address] MRSA by PCRon 03-22-2021 Staph Aureus Sc No S. aureus detected. Negative nasal MRSA PCR has a high negative predictive value for MRSA pneumonia. Consider stopping vancomycin if no other clinical indication. Contact Antimicrobial Stewardship for further recommendations. The analytical performance characteristics of this assay have been determined by [employer] in accordance with CLIA regulations. The modifications have not been cleared or approved by the U. S. Food and Drug Administration; however, the FDA has determined that such clearance or approval is not necessary. [facility] Test Performed by [facility] [employer] [facility], [address] [place] [address] [facility] LAB [facility] POCT GlucoseOrdered By: Pascual Morgan on 03-22-2021 Glucose [Mass/Vol] 134 mg/dL High 70 - 100 mg/dL [facility] Work Phone: Comment on above: Test performed by gl ucose meter. Results may be 10%-15% lower than serum/plasma values. (CLIA ID [id number]) Interpretation and review of laboratory results Abnormal [facility] Work Phone: [facility] Work Phone: POCT Glucoseon 03-22-2021 Test Performed by [facility], [address] LAB Glucose [Mass/Vol] 190 mg/dL High 70 - 100 mg/dL [facility] Comment on above: Test performed by gl ucose meter. Results may be 10%-15% lower than serum/plasma values. (CLIA ID [id number]) Interpretation and review of laboratory results Abnormal [facility] Test Performed by [facility], [address] LAB [facility] Glucose [Mass/Vol] 200 mg/dL High 70 - 100 mg/dL [facility] Comment on above: Test performed by gl ucose meter. Results may be 10%-15% lower than serum/plasma values. (CLIA ID [id number]) Interpretation and review of laboratory results Abnormal [facility] Test Performed by [facility], [address] LAB [facility] Glucose [Mass/Vol] 181 mg/dL High 70 - 100 mg/dL [facility] Comment on above: Test performed by gl ucose meter. Results may be 10%-15% lower than serum/plasma values. (CLIA ID [id number]) Interpretation and review of laboratory results Abnormal [facility] Test Performed by [facility] [employer], [address], [place], [place] [address] [facility] LAB [facility] Glucose [Mass/Vol] 186 mg/dL High 70 - 100 mg/dL [facility] Comment on above: Test performed by gl ucose meter. Results may be 10%-15% lower than serum/plasma values. (CLIA ID [id number]) Interpretation and review of laboratory results Abnormal [facility] Test Performed by [facility], [address], [place], [place] [address] [facility] LAB [facility] Procalcitoninon 03-22-2021 Procalcitonin 0.09 ng/mL Normal 0.00-0.09 [facility] Comment on above: Performed By: #### H EMD, BMP3 #### [facility] [address] [place] [address] Interpretation See Below [facility] Comment on above: PCT <0.50 = Low risk of severe sepsis and/or septic shock. PCT >2.00 = High risk of severe sepsis and/or septic shock. Procalcitonin 0.09 ng/mL 0.00 - 0.09 ng/mL [facility] Test Performed by [facility], [address] [place], [place] [id number] [place] [address] LAB [facility] Staph Aureus Complete Nasalo n 03-22-2021 Staph Aureus Complete Nasal Staph Screen --> Status: F No S. aureus detected. Negative nasal MRSA PCR has a high negative predictive value for MRSA pneumonia. Consider stopping vancomycin if no other clinical indication. Contact Antimicrobial Stewardship for further recommendations. The analytical performance characteristics of this assay have been determined by [employer] in accordance with CLIA regulations. The modifications have not been cleared or approved by the U. S. Food and Drug Administration; however, the FDA has determined that such clearance or approval is not necessary. Negative nasal MRSA PCR has a high negative predictive value for MRSA pneumonia. Consider stopping vancomycin if no other clinical indication. Contact Antimicrobial Stewardship for further recommendations. The analytical performance characteristics of this assay have been determined by [employer] in accordance with CLIA regulations. The modifications have not been cleared or approved by the U. S. Food and Drug Administration; however, the FDA has determined that such clearance or approval is not necessary. Normal [facility] Comment on above: Performed By: #### S APCR ####[facility] [place] [address] Vancomycin Troughon 03-22-20 21 Vancomycin Trough 8.1 ug/mL Low 15.0-20.0 [facility] Comment on above: Result Comment: . Performed By: #### B GLU #### [facility] [address] [place] [address] Vancomycin, Troughon 021 Interpretation and review of laboratory results Abnormal [facility] Vancomycin Tr 8.1 ug/mL Low 15.0 - 20.0 ug/mL [facility] Comment on above: . Test Performed by [facility], [address] [place] [address] [facility] LAB [facility] Basic Metabolic Panelon 03-02 Anion gap [Moles/Vol] 7 mmol/L Normal 3-13 [facility] Comment on above: Performed By: #### H MAYKEL BMP3 #### [facility] [address] [place] [address] Calcium [Mass/Vol] 8.1 mg/dL Low 8.4-10.4 [facility] Comment on above: Performed By: #### H MAYKEL BMP3 #### [facility] [address] [place] [address] CO2 [Moles/Vol] 26 mmol/L Normal 22-30 [facility] Comment on above: Performed By: #### H MAYKEL BMP3 #### [facility] [address] [place] [address] Glucose [Mass/Vol] 156 mg/dL High 70-100 [facility] Comment on above: Performed By: #### H MAYKEL BMP3 #### [facility] [address] [place] [address] Urea nitrogen [Mass/Vol] 19 mg/dL High 7-17 [facility] Comment on above: Performed By: #### H EMDF, BMP3 #### [facility] [address] [place] [address] Creatinine [Mass/Vol] 0.53 mg/dL Normal 0.52-1.25 [facility] Comment on above: Performed By: #### H MAYKEL BMP3 #### [facility] [address] [place] [address] eGFR OTHER > 90.0 Normal >60 [facility] Comment on above: Result Comment: KDIG O guidelines provide the following GFR categories: Stage GFR(ml/min/1.73 m2) Terms G1 >=90 Normal or high G2 60-89 Mildly decreased* G3a 45-59 Mildly to moderately decreased G3b 30-44 Moderately to severely decreased G4 15-29 Severely decreased G5 <15 Kidney failure *Relative to young adult level. In the absence of evidence of kidney damage, neither GFR category G1 nor G2 fulfill the criteria for CKD. The CKD-EPI equation is validated in individuals 18 years of age and older. Currently the best equation for estimating glomerular filtration rate (GFR) from serum creatinine in children is the Bedside Noriega equation. It is less accurate in patients with extremes of muscle mass, restriction of dietary protein, ingestion of creatine, extra-renal metabolism of creatinine, or treatment with medications that affect renal tubular creatinine secretion. Performed By: #### H MAYKEL BMP3 #### [facility] [address] [place] [address] GFR/1.73 sq M.predicted among blacks MDRD (S/P/Bld) [Vol rate/Area] mL/min/{1.73_m2} Normal >60 [facility] Comment on above: Performed By: #### H MAYKEL BMP3 #### [facility] [address] [place] [address] Chloride [Moles/Vol] 103 mmol/L Normal 98-107 [facility] Comment on above: Performed By: #### H MAYKEL BMP3 #### [facility] [address] [place] [address] Potassium [Moles/Vol] 3.4 mmol/L Low 3.5-5.1 [facility] Comment on above: Performed By: #### H MAYKEL BMP3 #### [facility] [address] [place] [address] Sodium [Moles/Vol] 136 mmol/L Normal 135-145 [facility] Comment on above: Performed By: #### H MAYKEL, BMP3 #### [facility] [employer] [facility] [address] [place] [address] Basic Metabolic Panel w/ Ref marciano to MGon 03-21-2021 Anion gap [Moles/Vol] 7 mmol/L 3 - 13 mmol/L [employer] Work Phone: Calcium [Mass/Vol] 8.1 mg/dL Low 8.4 - 10. 4 mg/dL [facility] Work Phone: Chloride [Moles/Vol] 103 mmol/L 98 - 10 7 mmol/L [facility] Work Phone: CO2 [Moles/Vol] 26 mmol/L 22 - 30 mmol/L [facility] Work Phone: Creatinine [Mass/Vol] 0.53 mg/dL 0.52 - 1.25 mg/dL [facility] Work Phone: EGFR IF NonAfrican [place]an >90.0 >60 mL/min [facility] Work Phone: Comment on above: KDIGO guidelines pro vide the following GFR categories: Stage GFR(ml/min/1.73 m2) Terms G1 >=90 Normal or high G2 60-89 Mildly decreased* G3a 45-59 Mildly to moderately decreased G3b 30-44 Moderately to severely decreased G4 15-29 Severely decreased G5 <15 Kidney failure *Relative to young adult level. In the absence of evidence of kidney damage, neither GFR category G1 nor G2 fulfill the criteria for CKD. The CKD-EPI equation is validated in individuals 18 years of age and older. Currently the best equation for estimating glomerular filtration rate (GFR) from serum creatinine in children is the Bedside Noriega equation. It is less accurate in patients with extremes of muscle mass, restriction of dietary protein, ingestion of creatine, extra-renal metabolism of creatinine, or treatment with medications that affect renal tubular creatinine secretion. GFR/1.73 sq M.predicted among blacks MDRD (S/P/Bld) [Vol rate/Area] mL/min/{1.73_m2} >60 mL/min [facility] Work Phone: Glucose [Mass/Vol] 156 mg/dL High 70 - 100 mg/dL [facility] Work Phone: Interpretation and review of laboratory results Abnormal [employer] Work Phone: Potassium [Moles/Vol] 3.4 mmol/L Low 3.5 - 5.1 mmol/L [employer] Work Phone: Sodium [Moles/Vol] 136 mmol/L 135 - 145 mmol/L [employer] Work Phone: Urea nitrogen (BldV) [Mass/Vol] 19 mg/dL High 7 - 17 mg/dL [employer] Work Phone: Test Performed by [facility] [employer] [facility], [facility] [place], [place] [id number] [place] [address] LAB [facility] Work Phone: CBCon 03-21-2021 Hematocrit (Bld) [Volume fraction] 35.4 % Low 40.0 - 52.0 % [facility] Work Phone: Hemoglobin.gastrointest inal spec 1 Ql (Stl) 11.9 g/dL Low 13.0 - 18.0 g/dL [facility] Work Phone: Interpretation and review of laboratory results Abnormal [facility] Work Phone: MCH (RBC) [Entitic mass] 30.5 pg 26.0 - 34.0 pg [employer] Work Phone: MCHC (RBC) [Mass/Vol] 33.7 % 32.0 - 36.0 % [facility] Work Phone: MCV (RBC) [Entitic vol] 90.6 fL 80.0 - 98.0 fL [employer] Work Phone: Platelet distribution width (Bld) [Ratio] 13.1 % 11.5 - 14.5 % [employer] Work Phone: Platelet mean volume (Bld) [Entitic vol] 9.1 fL 7.4 - 10.4 fL [employer] Work Phone: Platelets (Bld) [#/Vol] 136 10*3/uL Low 140 - 440 10*3/uL [facility] Work Phone: RBC (Bld) [#/Vol] 3.91 10*6/uL Low 4.40 - 5.9 0 10*6/uL [facility] Work Phone: WBC (Bld) [#/Vol] 7.1 10*3/uL 3.6 - 10.7 10*3/uL [facility] Work Phone: Test Performed by [facility] [employer], [address] [place], [place] [address] [facility] LAB [facility] [facility] Work Phone: Glucose,Bedsideon 03-21-2021 Glucose [Mass/Vol] 131 mg/dL High 70-100 [facility] Comment on above: Result Comment: Test performed by glucose meter. Results may be 10%-15% lower than serum/plasma values. (CLIA ID [id number]) Performed By: #### B GLU #### [facility] [address] [place] [address] Glucose [Mass/Vol] 230 mg/dL High 70-100 [facility] Comment on above: Result Comment: Test performed by glucose meter. Results may be 10%-15% lower than serum/plasma values. (CLIA ID [id number]) Performed By: #### B GLU #### [facility] [address] [place] [address] Hemogramon 03-21-2021 Erythrocyte distribution width (RBC) [Ratio] 13.1 % Normal 11.5-14.5 [facility] Comment on above: Performed By: #### H EMDF BMP3 #### [facility] [employer] [facility] [address] [place] [address] Hematocrit (Bld) [Volume fraction] 35.4 % Low 40.0-52.0 [facility] Comment on above: Performed By: #### H EMDF BMP3 #### [facility] [address] [place] [address] Hemoglobin (Bld) [Mass/Vol] 11.9 g/dL Low 13.0-18.0 [facility] Comment on above: Performed By: #### H EMDF BMP3 #### [facility] [address] [place] [address] MCH (RBC) [Entitic mass] 30.5 pg Normal 26.0-34.0 [facility] Comment on above: Performed By: #### H EMDF, BMP3 #### [facility] [address] [place] [address] MCHC 33.7 % Normal 32.0-36.0 [facility] Comment on above: Performed By: #### H EMDMaurice, BMP3 #### [facility] [address] [place] [address] MCV (RBC) [Entitic vol] 90.6 fL Normal 80.0-98.0 S [facility] Comment on above: Performed By: #### H EMDF, BMP3 #### [facility] [address] [place] [address] Platelet mean volume (Bld) [Entitic vol] 9.1 fL Normal 7.4-10.4 [facility] Comment on above: Performed By: #### H EMDF, BMP3 #### [facility] [address] [place] [address] Platelets (Bld) [#/Vol] 136 10*3/uL Low 140-440 [facility] Comment on above: Performed By: #### H EMDF, BMP3 #### [facility] [address] [place] [address] RBC (Bld) [#/Vol] 3.91 10*6/uL Low 4.40-5.90 [facility] Comment on above: Performed By: #### H EMDF, BMP3 #### [facility] [address] [place] [address] WBC (Bld) [#/Vol] 7.1 10*3/uL Normal 3.6-10.7 [facility] Comment on above: Performed By: #### H EMDF, BMP3 #### [facility] [address] [place] [address] Magnesiumon 03-21-2021 Magnesium [Mass/Vol] 2.2 mg/dL Normal 1.6-2.3 [facility] Comment on above: Performed By: #### H MAYKEL, BMP3 #### [facility] [address] [place] [address] Magnesium [Mass/Vol] 2.2 mg/dL 1.6 - 2 .3 mg/dL [facility] Work Phone: Test Performed by [facility], [address], [place], [place] [address] [facility] Work Phone: POCT Glucoseon 03-21-2021 Glucose [Mass/Vol] 131 mg/dL High 70 - 100 mg/dL [facility] Comment on above: Test performed by gl ucose meter. Results may be 10%-15% lower than serum/plasma values. (CLIA ID [id number]) Interpretation and review of laboratory results Abnormal [facility] Test Performed by [facility], [address], [place], [place] [id number] [place] [address] LAB [facility] Glucose [Mass/Vol] 230 mg/dL High 70 - 100 mg/dL [facility] Comment on above: Test performed by gl ucose meter. Results may be 10%-15% lower than serum/plasma values. (CLIA ID [id number]) Interpretation and review of laboratory results Abnormal [facility] Test Performed by [facility], [address], [place], [place] [id number] [place] [address] LAB [facility] Procalcitoninon 03-21-2021 Interpretation See Below Normal [facility] Comment on above: Result Comment: PCT <0.50 = Low risk of severe sepsis and/or septic shock. PCT >2.00 = High risk of severe sepsis and/or septic shock. Performed By: #### H MYAKEL BMP3 #### [facility] [address] [place] [address] Basic Metabolic Panelon 03-02 Calcium [Mass/Vol] 8.4 mg/dL Normal 8.4-10.4 [facility] Comment on above: Performed By: #### H EMDF, BMP3 #### [facility] [address] [place] [address] Anion gap [Moles/Vol] 6 mmol/L Normal 3-13 [facility] Comment on above: Performed By: #### H EMDF, BMP3 #### [facility] [address] [place] [address] CO2 [Moles/Vol] 27 mmol/L Normal 22-30 [facility] Comment on above: Performed By: #### H EMDF, BMP3 #### [facility] [address] [place] [address] Glucose [Mass/Vol] 106 mg/dL High 70-100 [facility] Comment on above: Performed By: #### H EMDF, BMP3 #### [facility] [address] [place] [address] Urea nitrogen [Mass/Vol] 14 mg/dL Normal 7-17 [facility] Comment on above: Performed By: #### H EMDF, BMP3 #### [facility] [address] [place] [address] Creatinine [Mass/Vol] 0.51 mg/dL Low 0.52-1.25 [facility] Comment on above: Performed By: #### H EMDF, BMP3 #### [facility] [address] [place] [address] eGFR OTHER > 90.0 Normal >60 [facility] Comment on above: Result Comment: KDIG O guidelines provide the following GFR categories: Stage GFR(ml/min/1.73 m2) Terms G1 >=90 Normal or high G2 60-89 Mildly decreased* G3a 45-59 Mildly to moderately decreased G3b 30-44 Moderately to severely decreased G4 15-29 Severely decreased G5 <15 Kidney failure *Relative to young adult level. In the absence of evidence of kidney damage, neither GFR category G1 nor G2 fulfill the criteria for CKD. The CKD-EPI equation is validated in individuals 18 years of age and older. Currently the best equation for estimating glomerular filtration rate (GFR) from serum creatinine in children is the Bedside Noriega equation. It is less accurate in patients with extremes of muscle mass, restriction of dietary protein, ingestion of creatine, extra-renal metabolism of creatinine, or treatment with medications that affect renal tubular creatinine secretion. Performed By: #### H EMDF, BMP3 #### [facility] [address] [place] [address] GFR/1.73 sq M.predicted among blacks MDRD (S/P/Bld) [Vol rate/Area] mL/min/{1.73_m2} Normal >60 [facility] Comment on above: Performed By: #### H MAYKEL, BMP3 #### [facility] [address] [place] [address] Chloride [Moles/Vol] 104 mmol/L Normal 98-107 [facility] Comment on above: Performed By: #### H ALCIRAF, BMP3 #### [facility] [address] [place] [address] Potassium [Moles/Vol] 3.9 mmol/L Normal 3.5-5.1 [facility] Comment on above: Performed By: #### H MAYKEL, BMP3 #### [facility] [address] [place] [address] Sodium [Moles/Vol] 137 mmol/L Normal 135-145 [facility] Comment on above: Performed By: #### H MAYKEL, BMP3 #### [facility] [address] [place] [address] Anion gap [Moles/Vol] 6 mmol/L 3 - 13 mmol/L [facility] Work Phone: Calcium [Mass/Vol] 8.4 mg/dL 8.4 - 10. 4 mg/dL [facility] Work Phone: Chloride [Moles/Vol] 104 mmol/L 98 - 10 7 mmol/L [facility] Work Phone: CO2 [Moles/Vol] 27 mmol/L 22 - 30 mmol/L [facility] Work Phone: Creatinine [Mass/Vol] 0.51 mg/dL Low 0.52 - 1.25 mg/dL [facility] Work Phone: EGFR IF NonAfrican Chilean >90.0 >60 mL/min [facility] Work Phone: Comment on above: KDIGO guidelines pro vide the following GFR categories: Stage GFR(ml/min/1.73 m2) Terms G1 >=90 Normal or high G2 60-89 Mildly decreased* G3a 45-59 Mildly to moderately decreased G3b 30-44 Moderately to severely decreased G4 15-29 Severely decreased G5 <15 Kidney failure *Relative to young adult level. In the absence of evidence of kidney damage, neither GFR category G1 nor G2 fulfill the criteria for CKD. The CKD-EPI equation is validated in individuals 18 years of age and older. Currently the best equation for estimating glomerular filtration rate (GFR) from serum creatinine in children is the Bedside Noriega equation. It is less accurate in patients with extremes of muscle mass, restriction of dietary protein, ingestion of creatine, extra-renal metabolism of creatinine, or treatment with medications that affect renal tubular creatinine secretion. GFR/1.73 sq M.predicted among blacks MDRD (S/P/Bld) [Vol rate/Area] mL/min/{1.73_m2} >60 mL/min [facility] Work Phone: Glucose [Mass/Vol] 106 mg/dL High 70 - 100 mg/dL [facility] Work Phone: Interpretation and review of laboratory results Abnormal [facility] Work Phone: Potassium [Moles/Vol] 3.9 mmol/L 3.5 - 5.1 mmol/L [facility] Work Phone: Sodium [Moles/Vol] 137 mmol/L 135 - 145 mmol/L [facility] Work Phone: Urea nitrogen (BldV) [Mass/Vol] 14 mg/dL 7 - 17 mg/dL [facility] Work Phone: Test Performed by [facility], [address] [place], [place] [address] [facility] Work Phone: C-Reactive Proteinon 11-20-2 021 CRP [Mass/Vol] 228.1 mg/L High 0.0-9.9 [facility] Comment on above: Result Comment: . Performed By: #### H MAYKEL BMP3 #### [facility] [address] [place] [address] CRP [Mass/Vol] 228.1 mg/L High 0.0 - 9.9 mg/L [facility] Work Phone: Comment on above: . Interpretation and review of laboratory results Abnormal [facility] [employer] Work Phone: Test Performed by [facility], [address] [place], [place] [id number] [place] [address] LAB [facility] Work Phone: COVID and Resp PCR Panelon 1 05-20-2020 SARS-CoV-2 (COVID-19) RNA SHIRLEY+probe Ql (Unsp spec) COVID and Resp PCR Panel --> Status: F POSITIVE: Respiratory Syncytial Virus DETECTED. _ Expected Result: Not Detected [facility] Upper Respiratory Pathogens PCR Panel can detect the following targets: SARS-CoV-2, Adenovirus, Coronavirus 229E, Coronavirus HKU1, Coronavirus NL63, Coronavirus OC43, Human Metapneumovirus, Human Rhinovirus/Enteroviru s, Influenza A, Influenza B, Parainfluenza Virus 1, Parainfluenza Virus 2, Parainfluenza Virus 3, Parainfluenza Virus 4, Respiratory Syncytial Virus, Bordetella pertussis, Bordetella parapertussis, Chlamydia pneumoniae, Mycoplasma pneumoniae. Method: Real-time PCR. _ Expected Result: Not Detected [facility] [employer] Upper Respiratory Pathogens PCR Panel can detect the following targets: SARS-CoV-2, Adenovirus, Coronavirus 229E, Coronavirus HKU1, Coronavirus NL63, Coronavirus OC43, Human Metapneumovirus, Human Rhinovirus/Enteroviru s, Influenza A, Influenza B, Parainfluenza Virus 1, Parainfluenza Virus 2, Parainfluenza Virus 3, Parainfluenza Virus 4, Respiratory Syncytial Virus, Bordetella pertussis, Bordetella parapertussis, Chlamydia pneumoniae, Mycoplasma pneumoniae. Method: Real-time PCR. Abnormal [facility] Comment on above: Performed By: #### B FRP2 #### [facility] [address] [place] [id number] EKG 12 Lead - Chest Painon 1 05-20-2020 [facility] Test Date: 2021-03-19 Pat Name: KATHYA HOOPER Department: 1 Room: 465 Gender: M Community Outreach Advocate: SHAILA : 1955 Requested By: BRADY DESAI Order Number: [id number] Reading MD: Fei Menjivar Measurements Intervals [place] Rate: 102 P: 71 OR: 172 QRS: -30 QRSD: 156 T: 85 QT: 412 QTc: 537 Interpretive Statements SINUS TACHYCARDIA LEFT BUNDLE BRANCH BLOCK Electronically Signed On 03-20-2021 22:47:41 EST by Fei BARNETT CARDIOLOGY Ti[place], Fei Cotto MD - 03/20/2021 [facility] Test Date: 2021-03-19 Pat Name: KATHYA HOOPER Department: 1 Room: [facility] Gender: M Community Outreach Advocate: SHAILA : 1955 Requested By: BRADY DESAI Order Number: [id number] Reading MD: Fei Menjivar Measurements Intervals [place] Rate: 102 P: 71 OR: 172 QRS: -30 QRSD: 156 T: 85 QT: 412 QTc: 537 Interpretive Statements SINUS TACHYCARDIA LEFT BUNDLE BRANCH BLOCK Electronically Signed On 03-20-2021 22:47:41 EST by Fei Menjivar [facility] Work Phone: EKG 12 Lead - Chest PainOrde red By: Fei Menjivar on 03-20-2021 [facility] Work Phone: Lactic Acidon 03-20-2021 Lactate [Moles/Vol] 0.7 mmol/L Normal 0.7-2.0 [facility] Comment on above: Performed By: #### H EMD, BMP3 #### [facility] [address] [place] [address] Lactic Acid, Plasmaon 2020 Lactate [Moles/Vol] 0.7 mmol/L 0.7 - 2. 0 mmol/L [facility] Work Phone: Test Performed by [facility], [address] [place], [place] [id number] [place] [address] LAB [facility] Work Phone: PROCALCITONINon 03-20-2021 Interpretation See Below [facility] Work Phone: Comment on above: PCT <0.50 = Low risk of severe sepsis and/or septic shock. PCT >2.00 = High risk of severe sepsis and/or septic shock. Interpretation and review of laboratory results Abnormal [facility] Work Phone: Test [facility] by [facility], [address] [place] [address] [facility] Work Phone: Procalcitoninon 03-20-2021 Procalcitonin 0.14 ng/mL High 0.00-0.09 [facility] Work Phone: Comment on above: Performed By: #### H EMDF, BMP3 #### [employer] [facility] [address] [place] [address] Interpretation See Below Normal [facility] Comment on above: Result Comment: PCT <0.50 = Low risk of severe sepsis and/or septic shock. PCT >2.00 = High risk of severe sepsis and/or septic shock. Performed By: #### H EMDF, BMP3 #### [facility] [employer] [facility] [address] [place] [address] Troponinon 03-20-2021 Interpretation and review of laboratory results Abnormal [facility] Work Phone: Troponin I.cardiac [Mass/Vol] 0.037 ng/mL High 0.000 - 0.034 ng/mL [facility] Work Phone: Comment on above: . Test Performed by [facility], [address] [place], [place] [address] [facility] Work Phone: Troponin Ion 03-20-2021 Troponin I.cardiac [Mass/Vol] 0.037 ng/mL High 0.000-0.034 [facility] Comment on above: Result Comment: . Performed By: #### H EMDF, BMP3 #### [facility] [employer] [facility] [address] [place] [address] Arterial Blood Gas Respirato yasmine 03-19-2021 Base Excess 1.2 mmol/L Normal -3.0-3.0 [facility] Comment on above: Performed By: #### B GLU #### [facility] [address] [place] [address] CO2 [Moles/Vol] 25.6 mmol/L Normal 23.0-27.0 [facility] Comment on above: Performed By: #### B GLU #### [facility] [address] [place] [address] FIO2 5 Normal [facility] Comment on above: Result Comment: Perf ormed by CLIA ID: [id number] [place], [place] Performed By: #### B GLU #### [facility] [address] [place] [address] HCO3 (Bld) [Moles/Vol] 24.6 mmol/L Normal 21.0-25.0 [facility] Comment on above: Performed By: #### B GLU #### [facility] [address] [place] [address] Oxygen (Bld) [Partial pressure] 56.7 mm[Hg] Low 80.0-100.0 [facility] Comment on above: Performed By: #### B GLU #### [facility] [address] [place] [address] Oxygen saturation in Blood 91.0 % Low 95.0-100.0 [facility] Comment on above: Performed By: #### B GLU #### [facility] [address] [place] [address] pCO2 33.9 mm[Hg] Low 35.0-45.0 [facility] Comment on above: Performed By: #### B GLU #### [facility] [address] [place] [address] pH 7.468 High 7.350-7.450 [facility] Comment on above: Performed By: #### B GLU #### [facility] [address] [place] [address] Basic Metabolic Panelon 11-1 Anion gap [Moles/Vol] 9 mmol/L Normal 3-13 [facility] Comment on above: Performed By: #### B MP3, TROPN ####[facility] [place] [address] Calcium [Mass/Vol] 8.5 mg/dL Normal 8.4-10.4 [facility] Comment on above: Performed By: #### B MP3, TROPN ####[facility] [place] [address] CO2 [Moles/Vol] 26 mmol/L Normal 22-30 [facility] Comment on above: Performed By: #### B MP3, TROPN ####[place] [address] [place] [address] Creatinine [Mass/Vol] 0.48 mg/dL Low 0.52-1.25 [facility] Comment on above: Performed By: #### B MP3, TROPN ####[place] [address] [place] [address] eGFR OTHER > 90.0 Normal >60 [facility] Comment on above: Result Comment: KDIG O guidelines provide the following GFR categories: Stage GFR(ml/min/1.73 m2) Terms G1 >=90 Normal or high G2 60-89 Mildly decreased* G3a 45-59 Mildly to moderately decreased G3b 30-44 Moderately to severely decreased G4 15-29 Severely decreased G5 <15 Kidney failure *Relative to young adult level. In the absence of evidence of kidney damage, neither GFR category G1 nor G2 fulfill the criteria for CKD. The CKD-EPI equation is validated in individuals 18 years of age and older. Currently the best equation for estimating glomerular filtration rate (GFR) from serum creatinine in children is the Bedside Noriega equation. It is less accurate in patients with extremes of muscle mass, restriction of dietary protein, ingestion of creatine, extra-renal metabolism of creatinine, or treatment with medications that affect renal tubular creatinine secretion. Performed By: #### Anamika LOPEZ3, TROPN ####[facility] [place] [address] GFR/1.73 sq M.predicted among blacks MDRD (S/P/Bld) [Vol rate/Area] mL/min/{1.73_m2} Normal >60 [facility] Comment on above: Performed By: #### B MP3, TROPN ####[address] [place] [address] Glucose [Mass/Vol] 132 mg/dL High 70-100 [facility] Comment on above: Performed By: #### B MP3, TROPN ####[address] [place] [address] Urea nitrogen [Mass/Vol] 16 mg/dL Normal 7-17 [facility] Comment on above: Performed By: #### Anamika MP3, TROPN ####[facility] [place] [address] Chloride [Moles/Vol] 102 mmol/L Normal 98-107 [facility] Comment on above: Performed By: #### Anamika MP3, TROPN ####[facility] [place] [address] Potassium [Moles/Vol] 4.1 mmol/L Normal 3.5-5.1 [facility] Comment on above: Performed By: #### B MP3, TROPN ####[facility] [place] [address] Sodium [Moles/Vol] 137 mmol/L Normal 135-145 [facility] Comment on above: Performed By: #### Anamika MP3, TROPN ####[facility] [place] [address] Anion gap [Moles/Vol] 9 mmol/L 3 - 13 mmol/L [facility] Calcium [Mass/Vol] 8.5 mg/dL 8.4 - 10. 4 mg/dL [facility] Chloride [Moles/Vol] 102 mmol/L 98 - 10 7 mmol/L [facility] CO2 [Moles/Vol] 26 mmol/L 22 - 30 mmol/L [facility] Creatinine [Mass/Vol] 0.48 mg/dL Low 0.52 - 1.25 mg/dL [facility] EGFR IF NonAfrican Chilean >90.0 >60 mL/min [facility] Comment on above: KDIGO guidelines pro vide the following GFR categories: Stage GFR(ml/min/1.73 m2) Terms G1 >=90 Normal or high G2 60-89 Mildly decreased* G3a 45-59 Mildly to moderately decreased G3b 30-44 Moderately to severely decreased G4 15-29 Severely decreased G5 <15 Kidney failure *Relative to young adult level. In the absence of evidence of kidney damage, neither GFR category G1 nor G2 fulfill the criteria for CKD. The CKD-EPI equation is validated in individuals 18 years of age and older. Currently the best equation for estimating glomerular filtration rate (GFR) from serum creatinine in children is the Bedside Noriega equation. It is less accurate in patients with extremes of muscle mass, restriction of dietary protein, ingestion of creatine, extra-renal metabolism of creatinine, or treatment with medications that affect renal tubular creatinine secretion. GFR/1.73 sq M.predicted among blacks MDRD (S/P/Bld) [Vol rate/Area] mL/min/{1.73_m2} >60 mL/min [facility] Glucose [Mass/Vol] 132 mg/dL High 70 - 100 mg/dL [facility] Interpretation and review of laboratory results Abnormal [facility] Potassium [Moles/Vol] 4.1 mmol/L 3.5 - 5.1 mmol/L [facility] Sodium [Moles/Vol] 137 mmol/L 135 - 145 mmol/L [facility] Urea nitrogen (BldV) [Mass/Vol] 16 mg/dL 7 - 17 mg/dL [facility] Test Performed by [facility], [address] [place] [id number] [place] [address] LAB [facility] CBC Auto Differentialon 03-01 Absolute Baso # 0.1 10*3/uL 0.0 - 0.2 10*3/uL [facility] Absolute Neut # 7.2 10*3/uL High 1.8 - 7.0 10*3/uL [facility] Hemoglobin.gastrointest inal spec 1 Ql (Stl) 13.1 g/dL 13.0 - 18.0 g/dL [facility] MCHC (RBC) [Mass/Vol] 33.9 % 32.0 - 36.0 % [facility] Platelet distribution width (Bld) [Ratio] 13.0 % 11.5 - 14.5 % [facility] COVID-19, Flu A/B, and RSV C omboon 03-19-2021 Influenza A by PCR Not detected [facility] Influenza B by PCR Not detected [facility] Interpretation and review of laboratory results Abnormal [facility] RSV PCR DETECTED Expected Result: Not Detected _ Method: Real-time, RT-PCR This assay was developed by [employer] and distributed under an Emergency Use Authorization (EUA) granted by the FDA for the qualitative detection of nucleic acids from SARS-CoV-2, Influenza A, Influenza B, and Respiratory Syncytial Virus. Provider and patient fact sheets can be found at https://www.fda.gov/m edia/931706/download and https://www.fda.gov/m edia/998627/download. Abnormal [facility] SARS-CoV-2 (COVID-19) RNA SHIRLEY+probe Ql (Unsp spec) Not detected [facility] Test Performed by [facility], [address] [place], [place] [id number] [place] [address] LAB [facility] CR Chest Portableon 03-19-20 21 CR Chest Portable Patient Name: KATHYA HOOPER Diagnostic Radiology ACCESSION EXAM DATE/TIME PROCEDURE ORDERING PROVIDER [id number] 03/19/2021 17:10 EST CR Chest Portable [id number] -BRADY DESAI CPT code 25681 Reason For Exam (CR Chest Portable) hypoxia Report Examination: AP portable chest Clinical Indication: hypoxia Comparison: 03/18/2021 Findings: Lungs appear normally inflated. There is no focal consolidation, effusion, or pulmonary edema identified. The cardiomediastinal silhouette is within normal limits. Degenerative changes visualized right shoulder and spine. Impression: No acute cardiopulmonary process. Report Dictated on Final Dictating Physician: MD SIMPSON ANTHONY J Signed Date and Time: 03/19/2021 5:21 pm Signed by: MD SIMPSON ANTHONY J Transcribed Date and Time: 03/19/2021 5:22 Normal [facility] ED Provider Noteon ED Provider Note Emergency Department Encounter [facility] ED Patient: Kathya Hooper : 1955 Date of Evaluation: 03/19/2021 ED Provider: Brady Desai DO Chief Complaint Chief Complaint Patient presents with ? Shortness of Breath TYONEK I wore appropriate PPE for the entirety of this encounter. Does this patient come from an ECF, SNF, Rehab, Retirement or other Congregate setting: yes (If yes to above patient needs a Covid-19 test) Kathya Hooper is a 66 y.o. male who presents to the emergency department complaining of shortness of breath. Patient is from nursing facility with previous history of alcohol abuse, schizophrenia and has undergone cervical fractures. He has a chronic mental baseline deficit. He was seen yesterday in the emergency department for respiratory symptoms and was diagnosed with RSV, hypoxia and was discharged home on oxygen. At the nursing facility, he was reportedly having worsening desaturation despite 6L of oxygen via nasal cannula. He seemed to have more cognitive decline and for these reasons they felt he required repeat evaluation. Patient is alert to self, location but not date. He denies any current complaints. ROS: 10 systems reviewed and otherwise acutely negative except as in the [place]. Past History Past Medical History: Diagnosis Date ? TREVER (acute kidney injury) (HCC) ? Alcohol abuse 07/08/2018 ? Anxiety ? Depression ? Fall 06/2018 ? Schizophrenia (HCC) Past Surgical History: Procedure Laterality Date ? CERVICAL FUSION 07/09/2014 C2-6 cervical fusion ? GASTROSTOMY TUBE PLACEMENT 07/13/2018 ? TRACHEOSTOMY 07/13/2018 Social History Socioeconomic History ? Marital status: Single Spouse name: None ? Number of children: None ? Years of education: None ? Highest education level: None Occupational History ? None Tobacco Use ? Smoking status: Former Smoker Types: Cigars Quit date: 02/06/2016 Years since quittin.1 ? Smokeless tobacco: Never Used Vaping Use ? Vaping Use: Never used Substance and Sexual Activity ? Alcohol use: Yes Alcohol/week: 6.0 standard drinks Types: 6 Cans of beer per week Comment: 2 times per work, occasionally liquor ? Drug use: No Comment: quit pot 3 yrs ago. ? Sexual activity: None Other Topics Concern ? None Social History Narrative ? None Social Determinants of Health Financial Resource Strain: ? Difficulty of Paying Living Expenses: Not on file Food Insecurity: ? Worried About Running Out of Food in the Last Year: Not on file ? Ran Out of Food in the Last Year: Not on file Transportation Needs: ? Lack of Transportation (Medical): Not on file ? Lack of Transportation (Non-Medical): Not on file Physical Activity: ? Days of Exercise per Week: Not on file ? Minutes of Exercise per Session: Not on file Stress: ? Feeling of Stress : Not on file Social Connections: ? Frequency of Communication with Friends and Family: Not on file ? Frequency of Social Gatherings with Friends and Family: Not on file ? Attends Christianity Services: Not on file ? Active Member of Clubs or Organizations: Not on file ? Attends Club or Organization Meetings: Not on file ? Marital Status: Not on file Intimate Partner Violence: ? Fear of Current or Ex-Partner: Not on file ? Emotionally Abused: Not on file ? Physically Abused: Not on file ? Sexually Abused: Not on file Housing Stability: ? Unable to Pay for Housing in the Last Year: Not on file ? Number of Places Lived in the Last Year: Not on file ? Unstable Housing in the Last Year: Not on file Medications/Allergies Previous Medications ACETAMINOPHEN (TYLENOL) 325 MG TABLET Take 650 mg by mouth every 6 hours as needed for Pain ASPIRIN 81 MG CHEWABLE TABLET 1 tablet by Per NG tube route daily ATORVASTATIN (LIPITOR) 40 MG TABLET 1 tablet by Per NG tube route nightly BALSAM TRACEY-CASTOR OIL (VENELEX) OINT OINTMENT Apply topically every 8 hours CLOZAPINE (CLOZARIL) 100 MG TABLET 1 tablet by Per G Tube route 2 times daily DOCUSATE (COLACE) 50 MG/5ML LIQUID 10 mLs by Per NG tube route 2 times daily ENOXAPARIN (LOVENOX) 30 MG/0.3ML INJECTION Inject 0.3 mLs into the skin 2 times daily FINASTERIDE (PROSCAR) 5 MG TABLET Take 1 tablet by mouth daily IPRATROPIUM-ALBUTEROL (DUONEB) 0.5-2.5 (3) MG/3ML SOLN NEBULIZER SOLUTION Inhale 3 mLs into the lungs every 4 hours MELATONIN 3 MG TABS TABLET 1 tablet by Per G Tube route nightly as needed (sleeplessness) MINERAL OIL-HYDROPHILIC PETROLATUM (AQUAPHOR) OINTMENT Apply topically as needed. MULTIPLE VITAMINS-MINERALS (CENTRUM/CERTA-JAVIER WITH MINERALS ORAL) SOLUTION Take 15 mLs by mouth daily RISPERIDONE (RISPERDAL) 0.5 MG TABLET Take 0.5 mg by mouth daily SODIUM CHLORIDE, INHALANT, 3 % NEBULIZER SOLUTION Take 4 mLs by nebulization 4 times daily TAMSULOSIN (FLOMAX) 0.4 MG CAPSULE Take 1 capsule by mouth daily VITAMIN B-1 (THIAMINE) 100 MG TABLET T (more content not included)... Normal [employer] Hemogram w/ Autodiffon 03-19 Abs Baso Cnt 0.1 10*3/uL Normal 0.0-0.2 [facility] [employer] [facility] Comment on above: Performed By: #### B GLU #### [facility] [address] [place] [address] Abs Neutrophile Cnt 7.2 10*3/uL High 1.8-7.0 [facility] Comment on above: Performed By: #### B GLU #### [facility] [address] [place] [address] Basophils/100 WBC (Bld) 0.6 % Normal 0.0-2.0 [facility] Comment on above: Performed By: #### B GLU #### [facility] [address] [place] [address] Eosinophils (Bld) [#/Vol] 0.0 10*3/uL Normal 0.0-0.5 [facility] Comment on above: Performed By: #### B GLU #### [facility] [address] [place] [address] Eosinophils/100 WBC (Bld) 0.2 % Low 1.0-6.0 [facility] Comment on above: Performed By: #### B GLU #### [place] [address] [place] [address] Erythrocyte distribution width (RBC) [Ratio] 13.0 % Normal 11.5-14.5 [facility] Comment on above: Performed By: #### B GLU #### [facility] [address] [place] [address] Granulocytes/100 WBC (Bld) 79.0 % Normal 40.0-80.0 [facility] Comment on above: Performed By: #### B GLU #### [facility] [address] [place] [address] Hematocrit (Bld) [Volume fraction] 38.5 % Low 40.0-52.0 [facility] Comment on above: Performed By: #### B GLU #### [facility] [address] [place] [address] Hemoglobin (Bld) [Mass/Vol] 13.1 g/dL Normal 13.0-18.0 [facility] Comment on above: Performed By: #### B GLU #### [place] [address] [place] [address] Lymphocytes (Bld) [#/Vol] 1.0 10*3/uL Normal 1.0-4.3 [facility] Comment on above: Performed By: #### B GLU #### [facility] [address] [place] [address] Lymphocytes/100 WBC (Bld) 10.8 % Low 20.0-40.0 [facility] Comment on above: Performed By: #### B GLU #### [facility] [address] [place] [address] MCH (RBC) [Entitic mass] 30.9 pg Normal 26.0-34.0 [facility] Comment on above: Performed By: #### B GLU #### [facility] [address] [place] [address] MCHC 33.9 % Normal 32.0-36.0 [facility] Comment on above: Performed By: #### B GLU #### [facility] [address] [place] [address] MCV (RBC) [Entitic vol] 91.1 fL Normal 80.0-98.0 [facility] Comment on above: Performed By: #### B GLU #### [facility] [address] [place] [address] Monocytes (Bld) [#/Vol] 0.9 10*3/uL High 0.0-0.8 [facility] Comment on above: Performed By: #### B GLU #### [facility] [address] [place] [address] Monocytes/100 WBC (Bld) 9.4 % Normal 2.0-10.0 [facility] Comment on above: Performed By: #### B GLU #### [facility] [address] [place] [address] Platelet mean volume (Bld) [Entitic vol] 9.9 fL Normal 7.4-10.4 [facility] Comment on above: Performed By: #### B GLU #### [facility] [address] [place] [address] Platelets (Bld) [#/Vol] 163 10*3/uL Normal 140-440 [facility] Comment on above: Performed By: #### B GLU #### [facility] [address] [place] [address] RBC (Bld) [#/Vol] 4.23 10*6/uL Low 4.40-5.90 [facility] Comment on above: Performed By: #### B GLU #### [facility] [address] [place] [address] WBC (Bld) [#/Vol] 9.1 10*3/uL Normal 3.6-10.7 [facility] Comment on above: Performed By: #### B GLU #### [facility] [address] [place] [address] Lactic Acidon 03-19-2021 Lactate [Moles/Vol] 2.3 mmol/L Critically high 0.7-2.0 [facility] Comment on above: Performed By: #### L ACT3 ####[place] [address] [place] [address] Lactic Acid, Plasmaon 2020 Lactate [Moles/Vol] 2.3 mmol/L Critically high 0.7 - 2.0 mmol/L [facility] No Panel Informationon 03-19 Interpretation and review of laboratory results Abnormal [facility] Test Performed by [facility], [facility] [address] [place], [place] [address] [facility] RBC MORPHOLOGYon 03-19-2021 Poikilocytes Slight [facility] RBC (Bld) [#/Vol] ABNORMAL [facility] Tear Drop Cells Slight [facility] RBC Morphologyon 03-19-2021 Ovalocytes Slight Normal [facility] Comment on above: Performed By: #### B GLU #### [facility] [address] [place] [address] Po[facility]ilocytosis Slight [facility] Comment on above: Performed By: #### B GLU #### [facility] [address] [place] [address] Polychromasia Slight Normal [facility] Comment on above: Performed By: #### B GLU #### [place] [address] [place] [address] RBC morphology finding Nom (Bld) ABNORMAL Normal [facility] Comment on above: Performed By: #### B GLU #### [place] [address] [place] [address] Tear Drop Forms Slight Normal [facility] Comment on above: Performed By: #### B GLU #### [facility] [address] [place] [address] Respiratory Panel, Molecular , with COVID-19 (Restricted: peds pts or suitable admitted adults)on 03-19-2021 Interpretation and review of laboratory results Abnormal [facility] Respiratory Panel Molecular, with COVID POSITIVE: Respiratory Syncytial Virus DETECTED. _ Expected Result: Not Detected [facility] Upper Respiratory Pathogens PCR Panel can detect the following targets: SARS-CoV-2, Adenovirus, Coronavirus 229E, Coronavirus HKU1, Coronavirus NL63, Coronavirus OC43, Human Metapneumovirus, Human Rhinovirus/Enteroviru s, Influenza A, Influenza B, Parainfluenza Virus 1, Parainfluenza Virus 2, Parainfluenza Virus 3, Parainfluenza Virus 4, Respiratory Syncytial Virus, Bordetella pertussis, Bordetella parapertussis, Chlamydia pneumoniae, Mycoplasma pneumoniae. Method: Real-time PCR. Abnormal [facility] Test Performed by [facility], [address] [place] [address] [facility] SARS-CoV-2, Flu A/B and RSVo n 03-19-2021 SARS-CoV-2 (COVID-19) RNA SHIRLEY+probe Ql (Unsp spec) SARS-CoV-2 --> Status: F Not Detected. Flu A PCR --> Status: F Not Detected. Flu B PCR --> Status: F Not Detected. RSV PCR --> Status: F DETECTED Expected Result: Not Detected _ Method: Real-time, RT-PCR This assay was developed by [employer] and distributed under an Emergency Use Authorization (EUA) granted by the FDA for the qualitative detection of nucleic acids from SARS-CoV-2, Influenza A, Influenza B, and Respiratory Syncytial Virus. Provider and patient fact sheets can be found at https://www.fda.gov/m edia/202873/download and https://www.fda.gov/m edia/929369/download. Expected Result: Not Detected _ Method: Real-time, RT-PCR This assay was developed by [employer] and distributed under an Emergency Use Authorization (EUA) granted by the FDA for the qualitative detection of nucleic acids from SARS-CoV-2, Influenza A, Influenza B, and Respiratory Syncytial Virus. Provider and patient fact sheets can be found at https://www.fda.gov/m edia/111374/download and https://www.fda.gov/m edia/418271/download. Abnormal [facility] Comment on above: Performed By: #### C VFLR #### [facility] [address] [place] [address] , [address] Troponinon 03-19-2021 Troponin I.cardiac [Mass/Vol] 0.017 ng/mL 0.000 - 0.034 ng/mL [facility] Comment on above: . Test Performed by [facility], [address] [place], [place] [address] [facility] Troponin Ion 03-19-2021 Troponin I.cardiac [Mass/Vol] 0.017 ng/mL Normal 0.000-0.034 [facility] Comment on above: Result Comment: . Performed By: #### B MP3, TROPN ####[facility] [place] [address] XR CHEST PORTABLEon 03-19-20 Patient Name: KATHYA HOOPER Diagnostic Radiology ACCESSION EXAM DATE/TIME PROCEDURE ORDERING PROVIDER [id number] 03/19/2021 17:10 EST CR Chest Portable [id number] -BRADY DESAI CPT code 47818 Reason For Exam (CR Chest Portable) hypoxia Report Examination: AP portable chest Clinical Indication: hypoxia Comparison: 03/18/2021 Findings: Lungs appear normally inflated. There is no focal consolidation, effusion, or pulmonary edema identified. The cardiomediastinal silhouette is within normal limits. Degenerative changes visualized right shoulder and spine. Impression: No acute cardiopulmonary process. Report Dictated on --- Final --- Dictating Physician: MD SIMPSON ANTHONY J Signed Date and Time: 03/19/2021 5:21 pm Signed by: MD SIMPSON ANTHONY J Transcribed Date and Time: 03/19/2021 5:22 [facility] Keshawn Simpson MD - 03/19/2021 Patient Name: KATHYA HOOPER Diagnostic Radiology ACCESSION EXAM DATE/TIME PROCEDURE ORDERING PROVIDER [id number] 03/19/2021 17:10 EST CR Chest Portable [id number] -BRADY DESAI CPT code 03565 Reason For Exam (CR Chest Portable) hypoxia Report Examination: AP portable chest Clinical Indication: hypoxia Comparison: 03/18/2021 Findings: Lungs appear normally inflated. There is no focal consolidation, effusion, or pulmonary edema identified. The cardiomediastinal silhouette is within normal limits. Degenerative changes visualized right shoulder and spine. Impression: No acute cardiopulmonary process. Report Dictated on --- Final --- Dictating Physician: MD SIMPSON ANTHONY J Signed Date and Time: 03/19/2021 5:21 pm Signed by: MD SIMPSON ANTHONY J Transcribed Date and Time: 03/19/2021 5:22 [facility] Work Phone: Radiology Study observation (narrative) [facility] Work Phone: XR CHEST PORTABLEOrdered By: Keshawn Simpson on 03-19-2021 [facility] Work Phone: Basic Metabolic Panelon 03-01 Calcium [Mass/Vol] 8.4 mg/dL Normal 8.4-10.4 [facility] Comment on above: Performed By: #### H MAYKEL BMP3 #### [facility] [address] [place] [address] Glucose [Mass/Vol] 110 mg/dL High 70-100 [facility] Comment on above: Performed By: #### H MAYKEL BMP3 #### [facility] [address] [place] [address] Anion gap [Moles/Vol] 7 mmol/L Normal 3-13 [facility] Comment on above: Performed By: #### H MAYKEL BMP3 #### [facility] [address] [place] [address] CO2 [Moles/Vol] 26 mmol/L Normal 22-30 [facility] Comment on above: Performed By: #### H MAYKEL BMP3 #### [facility] [address] [place] [address] Creatinine [Mass/Vol] 0.54 mg/dL Normal 0.52-1.25 [facility] Comment on above: Performed By: #### H MAYKEL BMP3 #### [facility] [address] [place] [address] eGFR OTHER > 90.0 Normal >60 [facility] Comment on above: Result Comment: KDIG O guidelines provide the following GFR categories: Stage GFR(ml/min/1.73 m2) Terms G1 >=90 Normal or high G2 60-89 Mildly decreased* G3a 45-59 Mildly to moderately decreased G3b 30-44 Moderately to severely decreased G4 15-29 Severely decreased G5 <15 Kidney failure *Relative to young adult level. In the absence of evidence of kidney damage, neither GFR category G1 nor G2 fulfill the criteria for CKD. The CKD-EPI equation is validated in individuals 18 years of age and older. Currently the best equation for estimating glomerular filtration rate (GFR) from serum creatinine in children is the Bedside Noriega equation. It is less accurate in patients with extremes of muscle mass, restriction of dietary protein, ingestion of creatine, extra-renal metabolism of creatinine, or treatment with medications that affect renal tubular creatinine secretion. Performed By: #### H MAYKEL BMP3 #### [facility] [address] [place] [address] GFR/1.73 sq M.predicted among blacks MDRD (S/P/Bld) [Vol rate/Area] mL/min/{1.73_m2} Normal >60 [facility] Comment on above: Performed By: #### H MAYKEL BMP3 #### [facility] [address] [place] [address] Urea nitrogen [Mass/Vol] 18 mg/dL High 7-17 [facility] Comment on above: Performed By: #### H MAYKEL BMP3 #### [facility] [address] [place] [address] Potassium [Moles/Vol] 3.9 mmol/L Normal 3.5-5.1 [facility] Comment on above: Performed By: #### H EMDF, BMP3 #### [facility] [address] [place] [address] Chloride [Moles/Vol] 104 mmol/L Normal 98-107 [facility] Comment on above: Performed By: #### H EMDF, BMP3 #### [facility] [address] [place] [address] Sodium [Moles/Vol] 137 mmol/L Normal 135-145 [facility] Comment on above: Performed By: #### H EMDF, BMP3 #### [facility] [address] [place] [address] Anion gap [Moles/Vol] 7 mmol/L 3 - 13 mmol/L [facility] Calcium [Mass/Vol] 8.4 mg/dL 8.4 - 10. 4 mg/dL [facility] Chloride [Moles/Vol] 104 mmol/L 98 - 10 7 mmol/L [facility] CO2 [Moles/Vol] 26 mmol/L 22 - 30 mmol/L [facility] Creatinine [Mass/Vol] 0.54 mg/dL 0.52 - 1.25 mg/dL [facility] EGFR IF NonAfrican [place]an >90.0 >60 mL/min [facility] Comment on above: KDIGO guidelines pro vide the following GFR categories: Stage GFR(ml/min/1.73 m2) Terms G1 >=90 Normal or high G2 60-89 Mildly decreased* G3a 45-59 Mildly to moderately decreased G3b 30-44 Moderately to severely decreased G4 15-29 Severely decreased G5 <15 Kidney failure *Relative to young adult level. In the absence of evidence of kidney damage, neither GFR category G1 nor G2 fulfill the criteria for CKD. The CKD-EPI equation is validated in individuals 18 years of age and older. Currently the best equation for estimating glomerular filtration rate (GFR) from serum creatinine in children is the Bedside Noriega equation. It is less accurate in patients with extremes of muscle mass, restriction of dietary protein, ingestion of creatine, extra-renal metabolism of creatinine, or treatment with medications that affect renal tubular creatinine secretion. GFR/1.73 sq M.predicted among blacks MDRD (S/P/Bld) [Vol rate/Area] mL/min/{1.73_m2} >60 mL/min [facility] Glucose [Mass/Vol] 110 mg/dL High 70 - 100 mg/dL [facility] Interpretation and review of laboratory results Abnormal [facility] Potassium [Moles/Vol] 3.9 mmol/L 3.5 - 5.1 mmol/L [facility] Sodium [Moles/Vol] 137 mmol/L 135 - 145 mmol/L [facility] Urea nitrogen (BldV) [Mass/Vol] 18 mg/dL High 7 - 17 mg/dL [facility] Brain Natriuretic Peptideon 03-18-2021 Interpretation and review of laboratory results Abnormal [facility] Natriuretic peptide B (Bld) [Mass/Vol] 710 pg/mL High 0 - 125 pg/mL [facility] Test Performed by [facility], [address] [place] [address] Str. [place], [place] [id number] [place] [address] LAB [facility] CBC Auto Differentialon 03-01 Absolute Baso # 0.0 10*3/uL 0.0 - 0.2 10*3/uL [facility] Absolute Neut # 7.3 10*3/uL High 1.8 - 7.0 10*3/uL [facility] Basophils/100 WBC (Bld) 0.5 % 0.0 - 2.0 % [facility] Eosinophils (Bld) [#/Vol] 0.0 10*3/uL 0.0 - 0.5 10*3/uL [facility] Eosinophils/100 WBC (Bld) 0.1 % Low 1.0 - 6.0 % [facility] Granulocytes/100 WBC (Bld) 82.8 % High 40.0 - 80.0 % [facility] Hematocrit (Bld) [Volume fraction] 38.3 % Low 40.0 - 52.0 % [facility] Hemoglobin.gastrointest inal spec 1 Ql (Stl) 13.6 g/dL 13.0 - 18.0 g/dL [facility] Interpretation and review of laboratory results Abnormal [facility] Lymphocytes (Bld) [#/Vol] 0.7 10*3/uL Low 1.0 - 4.3 10*3/uL [facility] Lymphocytes/100 WBC (Bld) 7.6 % Low 20.0 - 40.0 % [facility] MCH (RBC) [Entitic mass] 32.0 pg 26.0 - 34.0 pg [facility] MCHC (RBC) [Mass/Vol] 35.4 % 32.0 - 36.0 % [facility] MCV (RBC) [Entitic vol] 90.2 fL 80.0 - 98.0 fL [facility] Monocytes (Bld) [#/Vol] 0.8 10*3/uL 0.0 - 0.8 10*3/uL [facility] Monocytes/100 WBC (Bld) 9.0 % 2.0 - 10.0 % [facility] Platelet distribution width (Bld) [Ratio] 12.9 % 11.5 - 14.5 % [facility] Platelet mean volume (Bld) [Entitic vol] 9.8 fL 7.4 - 10.4 fL [facility] Platelets (Bld) [#/Vol] 129 10*3/uL Low 140 - 440 10*3/uL [facility] RBC (Bld) [#/Vol] 4.24 10*6/uL Low 4.40 - 5.9 0 10*6/uL [facility] WBC (Bld) [#/Vol] 8.8 10*3/uL 3.6 - 10.7 10*3/uL [facility] Test Performed by [facility], [facility] [address] LAB [facility] COVID-19, Flu A/B, and RSV C omboon 03-18-2021 Influenza A by PCR Not detected [facility] Influenza B by PCR Not detected [facility] Interpretation and review of laboratory results Abnormal [facility] RSV PCR DETECTED Expected Result: Not Detected _ Method: Real-time, RT-PCR This assay was developed by [employer] and distributed under an Emergency Use Authorization (EUA) granted by the FDA for the qualitative detection of nucleic acids from SARS-CoV-2, Influenza A, Influenza B, and Respiratory Syncytial Virus. Provider and patient fact sheets can be found at https://www.fda.gov/m edia/013282/download and https://www.fda.gov/m edia/683847/download. Abnormal [facility] SARS-CoV-2 (COVID-19) RNA SHIRLEY+probe Ql (Unsp spec) Not detected [facility] Test Performed by [facility], [facility] [address] LAB [facility] CR Chest Portableon 03-18-20 21 CR Chest Portable Patient Name: KATHYA HOOPER Diagnostic Radiology ACCESSION EXAM DATE/TIME PROCEDURE ORDERING PROVIDER [id number] 03/18/2021 15:30 EST CR Chest Portable [id number] -BOO CASTRO CPT code 36955 Reason For Exam (CR Chest Portable) sob, ams Report EXAMINATION: Portable chest INDICATION: sob, ams FINDINGS: There is no focal consolidation, sizable pleural effusion or pneumothorax. The cardiac silhouette and mediastinum are within normal limits. Small osteophytes of the spine are present at multiple levels. IMPRESSION: No radiographic evidence of acute cardiopulmonary process. Report Dictated on Final Dictating Physician: MD MUNOZ KRIKOR Signed Date and Time: 03/18/2021 3:34 pm Signed by: MD MUNOZ KRIKOR Transcribed Date and Time: 03/18/2021 3:35 Normal [facility] CTA Chest W WO (PE study)on 03-18-2021 Patient Name: KATHYA HOOPER Computed Tomography ACCESSION EXAM DATE/TIME PROCEDURE ORDERING PROVIDER [id number] 03/18/2021 16:27 EST CTA Chest w/ + w/o [id number] -MATTHEWAlyson BOO CPT code 20540 Q9967 Reason For Exam (CTA Chest w/ + w/o Contrast) pulmonary embolus Report CTA chest with and without contrast History: chest pain Protocol: 1 mm images after IV contrast, 3D rendering performed by md on a separate workstation No evidence of aortic dissection or pulmonary embolism. Patchy scattered bilateral lung infiltrates. Minimal left pleural effusion. No lymphadenopathy. IMPRESSION: Patchy scattered bilateral lung infiltrates. Minimal left pleural effusion. Report Dictated on --- Final --- Dictating Physician: MD MICHAELS MALAY Signed Date and Time: 03/18/2021 4:35 pm Signed by: MD MICHAELS MALAY Transcribed Date and Time: 03/18/2021 4:36 [facility] Malcolm Michaels MD - 03/18/2021 Patient Name: KATHYA HOOPER Computed Tomography ACCESSION EXAM DATE/TIME PROCEDURE ORDERING PROVIDER [id number] 03/18/2021 16:27 EST CTA Chest w/ + w/o [id number] -TOMBSTONE, Contrast BOO CPT code 75101 Q9967 Reason For Exam (CTA Chest w/ + w/o Contrast) pulmonary embolus Report CTA chest with and without contrast History: chest pain Protocol: 1 mm images after IV contrast, 3D rendering performed by me on a separate workstation No evidence of aortic dissection or pulmonary embolism. Patchy scattered bilateral lung infiltrates. Minimal left pleural effusion. No lymphadenopathy. IMPRESSION: Patchy scattered bilateral lung infiltrates. Minimal left pleural effusion. Report Dictated on --- Final --- Dictating Physician: MD MICHAELS MALAY Signed Date and Time: 03/18/2021 4:35 pm Signed by: MD IMCHAELS MALAY Transcribed Date and Time: 03/18/2021 4:36 [facility] Work Phone: Radiology Study observation (narrative) [facility] Work Phone: CTA Chest W WO (PE study)Ord ered By: Malcolm Michaels on 03-18-2021 [facility] Work Phone: CTA Chest w/ + w/o Contrasto n 03-18-2021 CTA Chest w/ + w/o Contrast Patient Name: KATHYA HOOPER Computed Tomography ACCESSION EXAM DATE/TIME PROCEDURE ORDERING PROVIDER [id number] 03/18/2021 16:27 EST CTA Chest w/ + w/o [id number] -TOMBSTONE, Contrast BOO CPT code 06075 Q9967 Reason For Exam (CTA Chest w/ + w/o Contrast) pulmonary embolus Report CTA chest with and without contrast History: chest pain Protocol: 1 mm images after IV contrast, 3D rendering performed by md on a separate workstation No evidence of aortic dissection or pulmonary embolism. Patchy scattered bilateral lung infiltrates. Minimal left pleural effusion. No lymphadenopathy. IMPRESSION: Patchy scattered bilateral lung infiltrates. Minimal left pleural effusion. 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 CTA of the head and neck was performed after the intravenous administration of contrast. 3-D reconstructions were performed. Contrast: 75 mL Isovue-370 nonionic IV contrast. COMPARISON: CTA head and neck 07/09/2018. FINDINGS: CT HEAD: BRAIN PARENCHYMA: No acute intraparenchymal hemorrhage, acute territorial infarct or masses. 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 Periventricular and subcortical white matter hypodensities, nonspecific, but likely representing chronic microangiopathic changes. MIDLINE SHIFT OR HERNIATION: No midline shift or herniation. VENTRICLES: No hydrocephalus. DURAL VENOUS SINUSES: No hyperdensity to suggest acute thrombus. EXTRA-AXIAL SPACES (epidural, subdural, subarachnoid spaces and basal cisterns): No collections. VISUALIZED ORBITS: Normal. VISUALIZED PARANASAL SINUSES AND MASTOID AIR CELLS: Paranasal sinuses demonstrate mucosal thickening. Tympanomastoid cavities are aerated. SOFT TISSUES: Normal. CALVARIUM AND SKULL BASE: Normal. Computed Tomography Report CTA NECK: AORTIC ARCH: The visualized portion of the aortic arch is unremarkable in appearance. The origins of the great vessels and the vertebral arteries are normal without evidence of stenosis. CERVICAL CAROTID ARTERIES: The common carotid arteries are patent bilaterally without evidence of stenosis. There is no narrowing of the cervical internal carotid arteries bilaterally. VERTEBRAL ARTERIES: The vertebral arteries are patent bilaterally throughout their course. CTA HEAD: INTERNAL CAROTID ARTERIES: Patent distal internal carotid arteries. CEREBRAL ARTERIES: The proximal anterior, middle and posterior cerebral arteries are patent bilaterally. Left A1 segment is dominant. VERTEBROBASILAR SYSTEM: Normal vertebrobasilar system. Left intradural vertebral artery is dominant. VASCULAR MALFORMATION: No evidence of aneurysm or vascular malformation. OTHER: There are enlarged mediastinal lymph nodes, for instance a right lower paratracheal lymph node measuring up to 2.2 cm. There is also a possible necrotic subcarinal lymph node, partially visualized on the current exam. Status post posterior decompression of C3-C6 with fusion of C2-C6. There is extensive anterior bridging osteophytes which diffusely narrows the aerodigestive tract. There is an anterior osteophyte arising from the anterior arch of C1 which results in severe effacement of the airway at the level of the uvula. IMPRESSION: No acute intracranial abnormality. 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 Grossly unremarkable examination of the cervical and intracranial vasculature. No large vessel occlusion or aneurysm. Status post decompression of C3-C6 with posterior fusion of C2-C6. Extensive anterior bridging osteophytes, including from the anterior arch of C1, which results in severe effacement of the airway at the level of the naso-oropharynx junction. Partially visualized mediastinal lymphadenopathy. Subcarinal lymph node is possibly necrotic. Dedicated CT the chest with contrast is recommended. Report Dictated on --- Final --- Dictating Physician: MD PRESTON, GREYSON HICKEY Signed Date and Time: 03/18/2021 4:51 pm Signed by: MD RAI WASSIM OSAMA Transcribed Date and Time: 03/18/2021 4:52 [facility] Greyson Rai MD - 03/18/2021 [id number] Computed Tomography ACCESSION EXAM DATE/TIME PROCEDURE ORDERING PROVIDER [id number] 03/18/2021 16:26 EST CTA Head/Neck w/ + w/o [id number] -alyson CASTRO CPT code [id number] Q9967 Reason For Exam (CTA Head/Neck w/ + w/o contrast) AMS, dysphasia and ?aphasia possibly since yesterday- 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 CTA of the head and neck was performed after the intravenous administration of contrast. 3-D reconstructions were performed. Contrast: 75 mL Isovue-370 nonionic IV contrast. COMPARISON: CTA head and neck 07/09/2018. FINDINGS: CT HEAD: BRAIN PARENCHYMA: No acute intraparenchymal hemorrhage, acute territorial infarct or masses. 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 Periventricular and subcortical white matter hypodensities, nonspecific, but likely representing chronic microangiopathic changes. MIDLINE SHIFT OR HERNIATION: No midline shift or herniation. VENTRICLES: No hydrocephalus. DURAL VENOUS SINUSES: No hyperdensity to suggest acute thrombus. EXTRA-AXIAL SPACES (epidural, subdural, subarachnoid spaces and basal cisterns): No collections. VISUALIZED ORBITS: Normal. VISUALIZED PARANASAL SINUSES AND MASTOID AIR CELLS: Paranasal sinuses demonstrate mucosal thickening. Tympanomastoid cavities are aerated. SOFT TISSUES: Normal. CALVARIUM AND SKULL BASE: Normal. Computed Tomography Report CTA NECK: AORTIC ARCH: The visualized portion of the aortic arch is unremarkable in appearance. The origins of the great vessels and the vertebral arteries are normal without evidence of stenosis. CERVICAL CAROTID ARTERIES: The common carotid arteries are patent bilaterally without evidence of stenosis. There is no narrowing of the cervical internal carotid arteries bilaterally. VERTEBRAL ARTERIES: The vertebral arteries are patent bilaterally throughout their course. CTA HEAD: INTERNAL CAROTID ARTERIES: Patent distal internal carotid arteries. CEREBRAL ARTERIES: The proximal anterior, middle and posterior cerebral arteries are patent bilaterally. Left A1 segment is dominant. VERTEBROBASILAR SYSTEM: Normal vertebrobasilar system. Left intradural vertebral artery is dominant. VASCULAR MALFORMATION: No evidence of aneurysm or vascular malformation. OTHER: There are enlarged mediastinal lymph nodes, for instance a right lower paratracheal lymph node measuring up to 2.2 cm. There is also a possible necrotic subcarinal lymph node, partially visualized on the current exam. Status post posterior decompression of C3-C6 with fusion of C2-C6. There is extensive anterior bridging osteophytes which diffusely narrows the aerodigestive tract. There is an anterior osteophyte arising from the anterior arch of C1 which results in severe effacement of the airway at the level of the uvula. IMPRESSION: No acute intracranial abnormality. 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 Grossly unremarkable examination of the cervical and intracranial vasculature. No large vessel occlusion or aneurysm. Status post decompression of C3-C6 with posterior fusion of C2-C6. Extensive anterior bridging osteophytes, including from the anterior arch of C1, which results in severe effacement of the airway at the level of the naso-oropharynx junction. Partially visualized mediastinal lymphadenopathy. Subcarinal lymph node is possibly necrotic. Dedicated CT the chest with contrast is recommended. Report Dictated on --- Final --- Dictating Physician: MD PRESTON, GREYSON HICKEY Signed Date and Time: 03/18/2021 4:51 pm Signed by: MD PRESTON, GREYSON HICKEY Transcribed Date and Time: 03/18/2021 4:52 [facility] Work Phone: Radiology Study observation (narrative) [facility] Work Phone: CTA HEAD NECK W WO CONTRASTO rdered By: Greyson Rai on 03-18-2021 [facility] Work Phone: CTA Head/Neck w/ + w/o contr birgit 03-18-2021 CTA Head/Neck w/ + w/o contrast Patient Name: KATHYA HOOPER Computed Tomography ACCESSION EXAM DATE/TIME PROCEDURE ORDERING PROVIDER [id number] 03/18/2021 16:26 EST CTA Head/Neck w/ + w/o [id number] -CASTROalyson BOO CPT code [id number] [id number] Reason For Exam (CTA Head/Neck w/ + w/o contrast) AMS, dysphasia and ?aphasia possibly since yesterday- 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 CTA of the head and neck was performed after the intravenous administration of contrast. 3-D reconstructions were performed. Contrast: 75 mL Isovue-370 nonionic IV contrast. COMPARISON: CTA head and neck 07/09/2018. FINDINGS: CT HEAD: BRAIN PARENCHYMA: No acute intraparenchymal hemorrhage, acute territorial infarct or masses. 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 Periventricular and subcortical white matter hypodensities, nonspecific, but likely representing chronic microangiopathic changes. MIDLINE SHIFT OR HERNIATION: No midline shift or herniation. VENTRICLES: No hydrocephalus. DURAL VENOUS SINUSES: No hyperdensity to suggest acute thrombus. EXTRA-AXIAL SPACES (epidural, subdural, subarachnoid spaces and basal cisterns): No collections. VISUALIZED ORBITS: Normal. VISUALIZED PARANASAL SINUSES AND MASTOID AIR CELLS: Paranasal sinuses demonstrate mucosal thickening. Tympanomastoid cavities are aerated. SOFT TISSUES: Normal. CALVARIUM AND SKULL BASE: Normal. Computed Tomography Report CTA NECK: AORTIC ARCH: The visualized portion of the aortic arch is unremarkable in appearance. The origins of the great vessels and the vertebral arteries are normal without evidence of stenosis. CERVICAL CAROTID ARTERIES: The common carotid arteries are patent bilaterally without evidence of stenosis. There is no narrowing of the cervical internal carotid arteries bilaterally. VERTEBRAL ARTERIES: The vertebral arteries are patent bilaterally throughout their course. CTA HEAD: INTERNAL CAROTID ARTERIES: Patent distal internal carotid arteries. CEREBRAL ARTERIES: The proximal anterior, middle and posterior cerebral arteries are patent bilaterally. Left A1 segment is dominant. VERTEBROBASILAR SYSTEM: Normal vertebrobasilar system. Left intradural vertebral artery is dominant. VASCULAR MALFORMATION: No evidence of aneurysm or vascular malformation. OTHER: There are enlarged mediastinal lymph nodes, for instance a right lower paratracheal lymph node measuring up to 2.2 cm. There is also a possible necrotic subcarinal lymph node, partially visualized on the current exam. Status post posterior decompression of C3-C6 with fusion of C2-C6. There is extensive anterior bridging osteophytes which diffusely narrows the aerodigestive tract. There is an anterior osteophyte arising from the anterior arch of C1 which results in severe effacement of the airway at the level of the uvula. IMPRESSION: No acute intracranial abnormality. 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 Grossly unremarkable examination of the cervical and intracranial vasculature. No large vessel occlusion or aneurysm. Status post decompression of C3-C6 with posterior fusion of C2-C6. Extensive anterior bridging osteophytes, including from the anterior arch of C1, which results in severe effacement of the airway at the level of the naso-oropharynx junction. Partially visualized mediastinal lymphadenopathy. Subcarinal lymph node is possibly necrotic. Dedicated CT the chest with contrast is recommended. Report Dictated on Final Dictating Physician: MD PRESTON, GREYSON HICKEY Signed Date and Time: 03/18/2021 4:51 pm Signed by: MD RAI WASSIM OSAMA Transcribed Date and Time: 03/18/2021 4:52 Normal [facility] ED Provider Noteon ED Provider Note [facility] ENCOUNTER Pt Name: Kathya Hooper Birthdate 1955 Date of evaluation: 03/18/2021 Provider: Boo Castro MD CHIEF COMPLAINT Chief Complaint Patient presents with ? Shortness of Breath HISTORY OF PRESENT ILLNESS (Location/Symptom, Timing/Onset, Context/Setting, Quality, Duration, Modifying Factors, Severity) Note limiting factors. I wore a surgical mask for the entirety of this encounter. Does this patient come from an ECF, SNF, Rehab, Retirement or other Congregate setting: no (If yes to above patient needs a Covid-19 test) HPI Kathya Hooper is a 66 y.o. 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 Pt is poor historian but able to tell me he felt last normal sometime last night when he developed a sore throat and difficulty swallowing - but very hard to illicit if this difficulty swallowing is from pain or is worsening of his prior dysphagia and pt is unable to tell me, but indicates his throat feels sore and like there is something in it. He also complains of worsening cough, difficulty fully coughing up all of the sputum, and shortness of breath particularly when lying flat. Per my discussion with Kayla Ruiz, at baseline, does not speak well, but usually coherent even if difficult to understand. 12:30-1pm was not his normal self and seemed somewhat out of it. 85% and 99.6, HR 110, labored respirations. He seemed weak and wobbly and confused at around 11 but garbled speech didn't start till several hours after this, maybe 1:30 pm. Before 11 am, we do not have a clear last known well, but per pt feels this was yesterday. Confirmed that pt is Full Code. REVIEW OF SYSTEMS (2+ for level 4; 10+ for level 5) Review of Systems Constitutional: Negative for diaphoresis and fever. HENT: Positive for sore throat. Negative for congestion. Eyes: Negative for discharge and redness. Respiratory: Positive for cough and shortness of breath. Negative for stridor. Cardiovascular: Negative for chest pain. Gastrointestinal: Negative for nausea and vomiting. Skin: Negative for pallor and wound. Allergic/Immunologic: Negative for immunocompromised state. Neurological: Negative for facial asymmetry. Psychiatric/Behaviora l: Negative for agitation and confusion. PAST MEDICAL HISTORY Past Medical History: Diagnosis Date ? TREVER (acute kidney injury) (HCC) ? Alcohol abuse 07/08/2018 ? Anxiety ? Depression ? Fall 06/2018 ? Schizophrenia (HCC) SURGICAL HISTORY Past Surgical History: Procedure Laterality Date ? CERVICAL FUSION 07/09/2014 C2-6 cervical fusion ? GASTROSTOMY TUBE PLACEMENT 07/13/2018 ? TRACHEOSTOMY 07/13/2018 CURRENT MEDICATIONS Previous Medications ACETAMINOPHEN (TYLENOL) 325 MG TABLET Take 650 mg by mouth every 6 hours as needed for Pain ASPIRIN 81 MG CHEWABLE TABLET 1 tablet by Per NG tube route daily ATORVASTATIN (LIPITOR) 40 MG TABLET 1 tablet by Per NG tube route nightly BALSAM TRACEY-CASTOR OIL (VENELEX) OINT OINTMENT Apply topically every 8 hours CLOZAPINE (CLOZARIL) 100 MG TABLET 1 tablet by Per G Tube route 2 times daily DOCUSATE (COLACE) 50 MG/5ML LIQUID 10 mLs by Per NG tube route 2 times daily ENOXAPARIN (LOVENOX) 30 MG/0.3ML INJECTION Inject 0.3 mLs into the skin 2 times daily FINASTERIDE (PROSCAR) 5 MG TABLET Take 1 tablet by mouth daily IPRATROPIUM-ALBUTEROL (DUONEB) 0.5-2.5 (3) MG/3ML SOLN NEBULIZER SOLUTION Inhale 3 mLs into the lungs every 4 hours MELATONIN 3 MG TABS TABLET 1 tablet by Per G Tube route nightly as needed (sleeplessness) MINERAL OIL-HYDROPHILIC PETROLATUM (AQUAPHOR) OINTMENT Apply topically as needed. MULTIPLE VITAMINS-MINERALS (CENTRUM/CERTA-JAVIER WITH MINERALS ORAL) SOLUTION Take 15 mLs by mouth daily RISPERIDONE (RISPERDAL) 0.5 MG TABLET Take 0.5 mg by mouth daily SODIUM CHLORIDE, INHALANT, 3 % NEBULIZER SOLUTION Take 4 mLs by nebulization 4 times daily TAMSULOSIN (FLOMAX) 0.4 MG CAPSULE Take 1 capsule by mouth daily VITAMIN B-1 (THIAMINE) 100 MG TABLET Take 100 mg by mouth daily VITAMIN D (CHOLECALCIFEROL) 1000 UNIT TABS TABLET Take 1,000 Units by mouth daily ALLERGIES Patient has no known allergies. FAMILY HISTORY History reviewed. No pertinent family history. SOCIAL HISTORY Social History Socioeconomic History ? Marital status: Single Spouse name: None ? Number of children: None ? Years of education: None ? Highest education level: None Occupational History ? None Tobacco Use ? Smoking status: Former Smoker Types: Cigars Quit date: 02/06/2016 Years since quittin.1 ? Smokeless tobacco: Never Used Vaping Use ? Vaping Us (more content not included)... Normal [facility] Hemogram w/ Autodiffon 03-18 Abs Baso Cnt 0.0 10*3/uL Normal 0.0-0.2 [facility] Comment on above: Performed By: #### H MAYKEL BMP3 #### [facility] [address] [place] [address] Abs Neutrophile Cnt 7.3 10*3/uL High 1.8-7.0 [facility] Comment on above: Performed By: #### H MAYKEL BMP3 #### [facility] [address] [place] [address] Basophils/100 WBC (Bld) 0.5 % Normal 0.0-2.0 [facility] Comment on above: Performed By: #### H MAYKEL BMP3 #### [facility] [address] [place] [address] Eosinophils (Bld) [#/Vol] 0.0 10*3/uL Normal 0.0-0.5 [facility] Comment on above: Performed By: #### H MAYKEL BMP3 #### [facility] [address] [place] [address] Eosinophils/100 WBC (Bld) 0.1 % Low 1.0-6.0 [facility] Comment on above: Performed By: #### H MAYKEL BMP3 #### [facility] [address] [place] [address] Erythrocyte distribution width (RBC) [Ratio] 12.9 % Normal 11.5-14.5 [facility] Comment on above: Performed By: #### H MAYKEL BMP3 #### [facility] [address] [place] [address] Granulocytes/100 WBC (Bld) 82.8 % High 40.0-80.0 [facility] Comment on above: Performed By: #### H MAYKEL BMP3 #### [facility] [address] [place] [address] Hematocrit (Bld) [Volume fraction] 38.3 % Low 40.0-52.0 [facility] Comment on above: Performed By: #### H MAYKEL BMP3 #### [facility] [address] [place] [address] Hemoglobin (Bld) [Mass/Vol] 13.6 g/dL Normal 13.0-18.0 [facility] Comment on above: Performed By: #### H EMDF BMP3 #### [facility] [address] [place] [address] Lymphocytes (Bld) [#/Vol] 0.7 10*3/uL Low 1.0-4.3 [facility] Comment on above: Performed By: #### H MAYKEL BMP3 #### [facility] [address] [place] [address] Lymphocytes/100 WBC (Bld) 7.6 % Low 20.0-40.0 [facility] Comment on above: Performed By: #### H EMDMaurice BMP3 #### [facility] [address] [place] [address] MCH (RBC) [Entitic mass] 32.0 pg Normal 26.0-34.0 [facility] Comment on above: Performed By: #### H MAYKEL BMP3 #### [facility] [address] [place] [address] MCHC 35.4 % Normal 32.0-36.0 [facility] Comment on above: Performed By: #### H EMDF BMP3 #### [facility] [address] [place] [address] MCV (RBC) [Entitic vol] 90.2 fL Normal 80.0-98.0 [facility] Comment on above: Performed By: #### H EMDF BMP3 #### [facility] [address] [place] [address] Monocytes (Bld) [#/Vol] 0.8 10*3/uL Normal 0.0-0.8 [facility] Comment on above: Performed By: #### H EMDF, BMP3 #### [facility] [address] [place] [address] Monocytes/100 WBC (Bld) 9.0 % Normal 2.0-10.0 [facility] Comment on above: Performed By: #### H MAYKEL BMP3 #### [facility] [address] [place] [address] Platelet mean volume (Bld) [Entitic vol] 9.8 fL Normal 7.4-10.4 [facility] Comment on above: Performed By: #### H MAYKEL BMP3 #### [facility] [address] [place] [address] Platelets (Bld) [#/Vol] 129 10*3/uL Low 140-440 [facility] Comment on above: Performed By: #### H MAYKEL BMP3 #### [facility] [address] [place] [address] RBC (Bld) [#/Vol] 4.24 10*6/uL Low 4.40-5.90 [facility] Comment on above: Performed By: #### H MAYKEL BMP3 #### [facility] [address] [place] [address] WBC (Bld) [#/Vol] 8.8 10*3/uL Normal 3.6-10.7 [facility] Comment on above: Performed By: #### H MAYKEL BMP3 #### [facility] [address] [place] [address] MAGNESIUMon 03-18-2021 Magnesium [Mass/Vol] 2.0 mg/dL 1.6 - 2 .3 mg/dL [facility] Magnesiumon 03-18-2021 Magnesium [Mass/Vol] 2.0 mg/dL Normal 1.6-2.3 [facility] Comment on above: Performed By: #### H MAYKEL BMP3 #### [facility] [address] [place] [address] NT pro BNPon 03-18-2021 Natriuretic peptide B (Bld) [Mass/Vol] 710 pg/mL High 0-125 [facility] Comment on above: Performed By: #### H MAYKEL BMP3 #### [facility] [address] [place] [address] No Panel Informationon 03-18 Test Performed by [facility], [address], [place], [place] [address] [facility] PROT[facility]/INR & PTTon 03-18-20 21 aPTT Coag (Bld) [Time] 30.7 s High 20.0 - 30.5 s [facility] Comment on above: NOTE: The therapeuti c time for Heparin anticoagulation, based on Xa activity inhibition, is an APTT of 46-80 seconds. INR Coag (Bld) [Relative time] 1.1 {INR} [facility] Comment on above: Recommended Anticoag ulant Therapy: SEE BELOW ----- INR of 2.0 - 3.0 : - Prophylaxis of Venous Thrombosis (high-risk surgery) - Treatment of Venous Thrombosis - Treatment of Pulmonary Embolism (Includes tissue heart valves, Acute Myocardial Infarction to prevent systemic embolism, Valvular Heart Disease, and Atrial Fibrillation) ----- INR of 2.5 - 3.5 : - Mechanical Prosthetic Valves (high risk) - If oral anticoagulant therapy is used to prevent Myocardial Infarction Interpretation and review of laboratory results Abnormal [facility] PT Coag (PPP) [Time] 11.4 s 9.0 - 12.0 s [facility] Comment on above: . Test Performed by [facility], [address], [place], [place] [id number] [place] [address] [facility] Protime AND APTTon aPTT Coag (Bld) [Time] 30.7 s High 20.0-30.5 [facility] Comment on above: Result Comment: NOTE : The therapeutic time for Heparin anticoagulation, based on Xa activity inhibition, is an APTT of 46-80 seconds. Performed By: #### H EMD, BMP3 #### [facility] [address] [place] [address] INR 1.1 Normal 0.9-1.1 [facility] Comment on above: Result Comment: Yefri mmended Anticoagulant Therapy: SEE BELOW ----- INR of 2.0 - 3.0 : - Prophylaxis of Venous Thrombosis (high-risk surgery) - Treatment of Venous Thrombosis - Treatment of Pulmonary Embolism (Includes tissue heart valves, Acute Myocardial Infarction to prevent systemic embolism, Valvular Heart Disease, and Atrial Fibrillation) ----- INR of 2.5 - 3.5 : - Mechanical Prosthetic Valves (high risk) - If oral anticoagulant therapy is used to prevent Myocardial Infarction Performed By: #### H MITALI BRAR #### [facility] [address] [place] [address] PT Coag (PPP) [Time] 11.4 s Normal 9.0-12.0 [facility] Comment on above: Result Comment: . Performed By: #### H KORIN BRAR3 #### [facility] [address] [place] [address] SARS-CoV-2, Flu A/B and RSVo n 03-18-2021 SARS-CoV-2 (COVID-19) RNA SHIRLEY+probe Ql (Unsp spec) SARS-CoV-2 --> Status: F Not Detected. Flu A PCR --> Status: F Not Detected. Flu B PCR --> Status: F Not Detected. RSV PCR --> Status: F DETECTED Expected Result: Not Detected _ Method: Real-time, RT-PCR This assay was developed by [employer] and distributed under an Emergency Use Authorization (EUA) granted by the FDA for the qualitative detection of nucleic acids from SARS-CoV-2, Influenza A, Influenza B, and Respiratory Syncytial Virus. Provider and patient fact sheets can be found at https://www.fda.gov/m edia/814687/download and https://www.fda.gov/m edia/775054/download. Expected Result: Not Detected _ Method: Real-time, RT-PCR This assay was developed by [employer] and distributed under an Emergency Use Authorization (EUA) granted by the FDA for the qualitative detection of nucleic acids from SARS-CoV-2, Influenza A, Influenza B, and Respiratory Syncytial Virus. Provider and patient fact sheets can be found at https://www.fda.gov/m edia/282669/download and https://www.fda.gov/m edia/050843/download. Abnormal [facility] Comment on above: Performed By: #### C VFLR #### [facility] [address] [place] [address] , [address] TS GELon 03-18-2021 TS GEL ABO Group: O Rh, Gel: POS Antibody Screen Gel: NEG Normal [facility] Comment on above: Performed By: #### T SGL #### [facility] TYPE AND SCREENon 03-18-2021 ABO Grouping O [facility] Rh Type Positive [facility] Test Performed by [facility], [address], [place], [place] [id number] [place] [address] LAB [facility] XR CHEST PORTABLEon 03-18-20 Patient Name: KATHYA HOOPER Diagnostic Radiology ACCESSION EXAM DATE/TIME PROCEDURE ORDERING PROVIDER [id number] 03/18/2021 15:30 EST CR Chest Portable [id number] -[facility] CPT code 58893 Reason For Exam (CR Chest Portable) sob, ams Report EXAMINATION: Portable chest INDICATION: sob, ams FINDINGS: There is no focal consolidation, sizable pleural effusion or pneumothorax. The cardiac silhouette and mediastinum are within normal limits. Small osteophytes of the spine are present at multiple levels. IMPRESSION: No radiographic evidence of acute cardiopulmonary process. Report Dictated on --- Final --- Dictating Physician: MD MUNOZ KRIKOR Signed Date and Time: 03/18/2021 3:34 pm Signed by: MD MUNOZ KRIKOR Transcribed Date and Time: 03/18/2021 3:35 [facility] RAD Alejandra Munoz MD - 03/18/2021 Patient Name: KATHYA HOOPER Diagnostic Radiology ACCESSION EXAM DATE/TIME PROCEDURE ORDERING PROVIDER [id number] 03/18/2021 15:30 EST CR Chest Portable [id number] [place] [address] CPT code 31020 Reason For Exam (CR Chest Portable) sob, ams Report EXAMINATION: Portable chest INDICATION: sob, ams FINDINGS: There is no focal consolidation, sizable pleural effusion or pneumothorax. The cardiac silhouette and mediastinum are within normal limits. Small osteophytes of the spine are present at multiple levels. IMPRESSION: No radiographic evidence of acute cardiopulmonary process. Report Dictated on --- Final --- Dictating Physician: MD MUNOZ KRIKOR Signed Date and Time: 03/18/2021 3:34 pm Signed by: MD MUNOZ KRIKOR Transcribed Date and Time: 03/18/2021 3:35 [employer] Work Phone: Radiology Study observation (narrative) [facility] Work Phone: XR CHEST PORTABLEOrdered By: Alejandra Munoz on 03-18-2021 [employer] Work Phone: ED Provider Noteon ED Provider Note - Attestation signed by Edwin Montejo MD at 10/31/2020 7:09 AM Emergency Medicine Attending Note This patient was seen and treated independently by the medication administration professional. I was present and available in the emergency department when this patient was treated. Vero Montejo MD [facility] ED eMERGENCY dEPARTMENT eNCOUnter Pt Name: Kathya Hooper Birthdate 1955 Date of evaluation: 10/30/2020 Provider: WINSOME WILSON CHIEF COMPLAINT Chief Complaint Patient presents with ? Feeding Tube Problem pt states his feeding tube needs to be replaced HISTORY OF PRESENT ILLNESS (Location/Symptom, Timing/Onset,Context/ Setting, Quality, Duration, Modifying Factors, Severity) Note limiting factors. HPI I did don an N95 mask and gloves during all of my interactions with this patient. Kathya Hooper is a 65 y.o. male who presents to the emergency department stating that his G-tube is leaking and cracked. This patient was seen here back in August of this year as well as June of this year for G-tube replacements. He denies any pain. He states has been leaking all over. He believes it is also coming out. Nursing Notes were reviewed. REVIEW OF SYSTEMS (2+ for4; 10+ for level 5) Review of Systems Constitutional: Negative for chills, diaphoresis and fever. HENT: Negative for congestion, ear pain, facial swelling, rhinorrhea and sore throat. Eyes: Negative for photophobia, pain and visual disturbance. Respiratory: Negative for cough, chest tightness, shortness of breath and wheezing. Cardiovascular: Negative for chest pain and leg swelling. Gastrointestinal: Negative for abdominal pain, constipation, diarrhea, nausea and vomiting. Genitourinary: Negative for difficulty urinating, dysuria, flank pain, frequency, hematuria and urgency. Musculoskeletal: Negative for arthralgias, back pain, myalgias and neck pain. Skin: Negative for rash. Neurological: Negative for dizziness and headaches. Psychiatric/Behaviora l: Negative for suicidal ideas. PAST MEDICAL HISTORY Past Medical History: Diagnosis Date ? TREVER (acute kidney injury) ([facility]) ? Alcohol abuse 07/08/2018 ? Anxiety ? Depression ? Fall 06/2018 ? Schizophrenia ([facility]) SURGICALHISTORY Past Surgical History: Procedure Laterality Date ? CERVICAL FUSION 07/09/2014 C2-6 cervical fusion ? GASTROSTOMY TUBE PLACEMENT 07/13/2018 ? TRACHEOSTOMY 07/13/2018 CURRENT MEDICATIONS Previous Medications ACETAMINOPHEN (TYLENOL) 325 MG TABLET Take 650 mg by mouth every 6 hours as needed for Pain ASPIRIN 81 MG CHEWABLE TABLET 1 tablet by Per NG tube route daily ATORVASTATIN (LIPITOR) 40 MG TABLET 1 tablet by Per NG tube route nightly BALSAM TRACEY-CASTOR OIL (VENELEX) OINT OINTMENT Apply topically every 8 hours CLOZAPINE (CLOZARIL) 100 MG TABLET 1 tablet by Per G Tube route 2 times daily DOCUSATE (COLACE) 50 MG/5ML LIQUID 10 mLs by Per NG tube route 2 times daily ENOXAPARIN (LOVENOX) 30 MG/0.3ML INJECTION Inject 0.3 mLs into the skin 2 times daily FINASTERIDE (PROSCAR) 5 MG TABLET Take 1 tablet by mouth daily IPRATROPIUM-ALBUTEROL (DUONEB) 0.5-2.5 (3) MG/3ML SOLN NEBULIZER SOLUTION Inhale 3 mLs into the lungs every 4 hours MELATONIN 3 MG TABS TABLET 1 tablet by Per G Tube route nightly as needed (sleeplessness) MINERAL OIL-HYDROPHILIC PETROLATUM (AQUAPHOR) OINTMENT Apply topically as needed. MULTIPLE VITAMINS-MINERALS (CENTRUM/CERTA-AJVIER WITH MINERALS ORAL) SOLUTION Take 15 mLs by mouth daily RISPERIDONE (RISPERDAL) 0.5 MG TABLET Take 0.5 mg by mouth daily SODIUM CHLORIDE, INHALANT, 3 % NEBULIZER SOLUTION Take 4 mLs by nebulization 4 times daily TAMSULOSIN (FLOMAX) 0.4 MG CAPSULE Take 1 capsule by mouth daily VITAMIN B-1 (THIAMINE) 100 MG TABLET Take 100 mg by mouth daily VITAMIN D (CHOLECALCIFEROL) 1000 UNIT TABS TABLET Take 1,000 Units by mouth daily Patient has no known allergies. FAMILY HISTORY History reviewed. No pertinent family history. SOCIAL HISTORY Social History Socioeconomic History ? Marital status: Single Spouse name: None ? Number of children: None ? Years of education: None ? Highest education level: None Occupational History ? None Tobacco Use ? Smoking status: Former Smoker Types: Cigars Quit date: 02/06/2016 Years since quittin.7 ? Smokeless tobacco: Never Used Vaping Use ? Vaping Use: Never used Substance and Sexual Activity ? Alcohol use: Yes Alcohol/week: 6.0 standard drinks Types: 6 Cans of beer per week Comment: 2 times per work, occasionally liquor ? Drug use: No Comment: quit pot 3 yrs ago. ? Sexual activity: None Other Topics Concern ? None Social History Narrative ? None Social Determinants of Health Financial Resource Strain: ? (more content not included)... Normal [facility] [place] GI TUBE EVALUATION W CONT RASTOrdered By: Helen Toledo on 10-30-2020 Patient Name: KATHYA HOOPER Fluoroscopy ACCESSION EXAM DATE/TIME PROCEDURE ORDERING PROVIDER [id number] 10/30/2020 15:07 EDT RF Intro Long GI Tube w/ KRISTA TOLEDO, HELEN [place] Fluoro CPT code 72040 Reason For Exam (RF Intro Long GI Tube w/ Fluoro) tube Placement Report Examination: Supine abdomen Clinical Indication: tube Placement Comparison: 09/22/2020 Findings: KUB of the abdomen prior to and after 30 mL Gastrografin contrast administered through G-tube. Contrast is intraluminal within the stomach and proximal small bowel. No abnormal extravasation. Mild gaseous distention of large bowel within the left mid abdomen. Nonspecific bowel gas appearance. Air and stool seen distally to the rectum. Free air and air-fluid levels incompletely evaluated without upright or decubitus view. No pathologic calcification is seen. Degenerative changes within the spine and hips. Enthesophytes along the iliac wings. Impression: Adequate positioning of the G-tube. Contrast remains intraluminal within the stomach and small bowel. Mild gaseous distention of large bowel within the left mid abdomen without january dilation. This is more pronounced than seen previously. Report Dictated on --- Final --- Dictating Physician: MD SIMPSON ANTHONY J Signed Date and Time: 10/30/2020 4:05 pm Signed by: MD SIMPSON ANTHONY J Transcribed Date and Time: 10/30/2020 4:06 [facility] Work Phone: [facility], [facility] Incoming Radiology Results From [facility] - 10/30/2020 4:07 PM EDT Patient Name: KATHYA HOOPER Fluoroscopy ACCESSION EXAM DATE/TIME PROCEDURE ORDERING PROVIDER [id number] 10/30/2020 15:07 EDT RF Intro Long GI Tube w/ KRISTA TOLEDO AMY L Fluoro CPT code 58945 Reason For Exam (RF Intro Long GI Tube w/ Fluoro) tube Placement Report Examination: Supine abdomen Clinical Indication: tube Placement Comparison: 09/22/2020 Findings: KUB of the abdomen prior to and after 30 mL Gastrografin contrast administered through G-tube. Contrast is intraluminal within the stomach and proximal small bowel. No abnormal extravasation. Mild gaseous distention of large bowel within the left mid abdomen. Nonspecific bowel gas appearance. Air and stool seen distally to the rectum. Free air and air-fluid levels incompletely evaluated without upright or decubitus view. No pathologic calcification is seen. Degenerative changes within the spine and hips. Enthesophytes along the iliac wings. Impression: Adequate positioning of the G-tube. Contrast remains intraluminal within the stomach and small bowel. Mild gaseous distention of large bowel within the left mid abdomen without january dilation. This is more pronounced than seen previously. Report Dictated on --- Final --- Dictating Physician: MD SIMPSON ANTHONY J Signed Date and Time: 10/30/2020 4:05 pm Signed by: MD SIMPSON ANTHONY J Transcribed Date and Time: 10/30/2020 4:06 [facility] Work Phone: [facility] Work Phone: RF Intro Long GI Tube w/ Flu oroon 10-30-2020 RF Intro Long GI Tube w/ Fluoro Patient Name: KATHYA HOOPER Fluoroscopy ACCESSION EXAM DATE/TIME PROCEDURE ORDERING PROVIDER [id number] 10/30/2020 15:07 EDT RF Intro Long GI Tube w/ KRISTA TOLEDO AMY L Fluoro CPT code 26046 Reason For Exam (RF Intro Long GI Tube w/ Fluoro) tube Placement Report Examination: Supine abdomen Clinical Indication: tube Placement Comparison: 09/22/2020 Findings: KUB of the abdomen prior to and after 30 mL Gastrografin contrast administered through G-tube. Contrast is intraluminal within the stomach and proximal small bowel. No abnormal extravasation. Mild gaseous distention of large bowel within the left mid abdomen. Nonspecific bowel gas appearance. Air and stool seen distally to the rectum. Free air and air-fluid levels incompletely evaluated without upright or decubitus view. No pathologic calcification is seen. Degenerative changes within the spine and hips. Enthesophytes along the iliac wings. Impression: Adequate positioning of the G-tube. Contrast remains intraluminal within the stomach and small bowel. Mild gaseous distention of large bowel within the left mid abdomen without january dilation. This is more pronounced than seen previously. Report Dictated on Final Dictating Physician: MD SIMPSON ANTHONY J Signed Date and Time: 10/30/2020 4:05 pm Signed by: MD MAGGI, KESHAWN Pineda Transcribed Date and Time: 10/30/2020 4:06 [facility] ED Provider Noteon ED Provider Note [facility] ED EMERGENCY DEPARTMENT ENCOUNTER Pt Name: Kathya Hooper Birthdate 1955 Date of evaluation: 09/22/2020 Provider: Elizabeth Moura MD CHIEF COMPLAINT Chief Complaint Patient presents with ? G Tube Complications HISTORY OF PRESENT ILLNESS (Location/Symptom, Timing/Onset,Context/ Setting, Quality, Duration, Modifying Factors, Severity) Note limiting factors. HPI Kathya Hooper is a 65 y.o. male who presents to the emergency department for the evaluation of peg tube malfunction. Leaking port. Needs replaced. Has been in for months. No symptoms. Nursing Notes were reviewed. REVIEW OF SYSTEMS (2+ for level 4; 10+ for level 5) Review of Systems 10 system review of systems negative except as perhistory of present illness. PAST MEDICAL HISTORY Past Medical History: Diagnosis Date ? TREVER (acute kidney injury) (HCC) ? Alcohol abuse 07/08/2018 ? Anxiety ? Depression ? Fall 06/2018 ? Schizophrenia (HCC) SURGICAL HISTORY Past Surgical History: Procedure Laterality Date ? CERVICAL FUSION 07/09/2014 C2-6 cervical fusion ? GASTROSTOMY TUBE PLACEMENT 07/13/2018 ? TRACHEOSTOMY 07/13/2018 CURRENT MEDICATIONS Previous Medications ACETAMINOPHEN (TYLENOL) 325 MG TABLET Take 650 mg by mouth every 6 hours as needed for Pain ASPIRIN 81 MG CHEWABLE TABLET 1 tablet by Per NG tube route daily ATORVASTATIN (LIPITOR) 40 MG TABLET 1 tablet by Per NG tube route nightly BALSAM TRACEY-CASTOR OIL (VENELEX) OINT OINTMENT Apply topically every 8 hours CLOZAPINE (CLOZARIL) 100 MG TABLET 1 tablet by Per G Tube route 2 times daily DOCUSATE (COLACE) 50 MG/5ML LIQUID 10 mLs by Per NG tube route 2 times daily ENOXAPARIN (LOVENOX) 30 MG/0.3ML INJECTION Inject 0.3 mLs into the skin 2 times daily FINASTERIDE (PROSCAR) 5 MG TABLET Take 1 tablet by mouth daily IPRATROPIUM-ALBUTEROL (DUONEB) 0.5-2.5 (3) MG/3ML SOLN NEBULIZER SOLUTION Inhale 3 mLs into the lungs every 4 hours MELATONIN 3 MG TABS TABLET 1 tablet by Per G Tube route nightly as needed (sleeplessness) MINERAL OIL-HYDROPHILIC PETROLATUM (AQUAPHOR) OINTMENT Apply topically as needed. MULTIPLE VITAMINS-MINERALS (CENTRUM/CERTA-JAVIER WITH MINERALS ORAL) SOLUTION Take 15 mLs by mouth daily RISPERIDONE (RISPERDAL) 0.5 MG TABLET Take 0.5 mg by mouth daily SODIUM CHLORIDE, INHALANT, 3 % NEBULIZER SOLUTION Take 4 mLs by nebulization 4 times daily TAMSULOSIN (FLOMAX) 0.4 MG CAPSULE Take 1 capsule by mouth daily VITAMIN B-1 (THIAMINE) 100 MG TABLET Take 100 mg by mouth daily VITAMIN D (CHOLECALCIFEROL) 1000 UNIT TABS TABLET Take 1,000 Units by mouth daily ALLERGIES Patient has no known allergies. FAMILY HISTORY History reviewed. No pertinent family history. SOCIALHISTORY Social History Socioeconomic History ? Marital status: Single Spouse name: None ? Number of children: None ? Years of education: None ? Highest education level: None Occupational History ? None Tobacco Use ? Smoking status: Former Smoker Types: Cigars Quit date: 02/06/2016 Years since quittin.6 ? Smokeless tobacco: Never Used Vaping Use ? Vaping Use: Never used Substance and Sexual Activity ? Alcohol use: Yes Alcohol/week: 6.0 standard drinks Types: 6 Cans of beer per week Comment: 2 times per work, occasionally liquor ? Drug use: No Comment: quit pot 3 yrs ago. ? Sexual activity: None Other Topics Concern ? None Social History Narrative ? None Social Determinants of Health Financial Resource Strain: ? Difficulty of Paying Living Expenses: Food Insecurity: ? Worried About Running Out of Food in the Last Year: ? Ran Out of Food in the Last Year: Transportation Needs: ? Lack of Transportation (Medical): ? Lack of Transportation (Non-Medical): Physical Activity: ? Days of Exercise per Week: ? Minutes of Exercise per Session: Stress: ? Feeling of Stress : Social Connections: ? Frequency of Communication with Friends and Family: ? Frequency of Social Gatherings with Friends and Family: ? Attends Christianity Services: ? Active Member of Clubs or Organizations: ? Attends Club or Organization Meetings: ? Marital Status: Intimate Partner Violence: ? Fear of Current or Ex-Partner: ? Emotionally Abused: ? Physically Abused: ? Sexually Abused: SCREENINGS PHYSICAL EXAM (up to 7 for level 4, 8 or more for level 5) ED Triage Vitals [09/22/20 0026] BP Temp Temp Source Pulse Resp SpO2 Height Weight 121/76 97.8 ?F (36.6 ?C) Temporal 86 16 98 % -- -- Physical Exam General Appearance: Alert, cooperative, no distress, appears stated age. Head: Normocephalic, without obvious abnormality, atraumatic. Eyes: conjunctiva/corneas clear, EOM's intact. Sclera anicteric. ENT: Mucous membranes moist. Neck: Supple, symmetrical, trachea midline, No jugular venous distention. Lungs: No Respiratory Distress. Chest Wall: Nontender Heart: RRR Abdomen: Soft, non-distended (more content not included)... Normal [facility] [place] GI TUBE EVALUATION W CONT RASTOrdered By: Elizabeth Moura on 09-22-2020 Patient Name: KATHYA HOOPER Fluoroscopy ACCESSION EXAM DATE/TIME PROCEDURE ORDERING PROVIDER [id number] 09/22/2020 04:09 EDT RF Intro Long GI Tube w/ [id number] -ELIZABETH MOURA CPT code 95259 Reason For Exam (RF Intro Long GI Tube w/ Fluoro) confirm peg tube placement Report CLINICAL INFORMATION: G-tube replacement. KUB is provided both before and after the administration of Gastrografin via PEG tube. The examination is compared to a previous study dated 06/26/2020. FINDINGS: A gastrostomy tube overlies the epigastrium. Injected contrast is contained within the gastric lumen. There is no extravasation of contrast. The visualized small and large bowel are nondistended. The lung bases are clear. IMPRESSION: 1. PEG tube appears well-positioned. 2. Injected contrast is contained within the gastric lumen. Report Dictated on --- Final --- Dictating Physician: MD JERNIGAN JEFFREY Signed Date and Time: 09/22/2020 5:09 am Signed by: MD JERNIGAN JEFFREY Transcribed Date and Time: 09/22/2020 5:11 [facility] Phone[facility] From [facility] - 09/22/2020 5:11 AM EDT Patient Name: KATHYA HOOPER Fluoroscopy ACCESSION EXAM DATE/TIME PROCEDURE ORDERING PROVIDER [id number] 09/22/2020 04:09 EDT RF Intro Long GI Tube w/ 58Hayley JoesphZENY ELIZABETH Fluoro CPT code 37852 Reason For Exam (RF Intro Long GI Tube w/ Fluoro) confirm peg tube placement Report CLINICAL INFORMATION: G-tube replacement. KUB is provided both before and after the administration of Gastrografin via PEG tube. The examination is compared to a previous study dated 06/26/2020. FINDINGS: A gastrostomy tube overlies the epigastrium. Injected contrast is contained within the gastric lumen. There is no extravasation of contrast. The visualized small and large bowel are nondistended. The lung bases are clear. IMPRESSION: 1. PEG tube appears well-positioned. 2. Injected contrast is contained within the gastric lumen. Report Dictated on --- Final --- Dictating Physician: MD JERNIGAN JEFFREY Signed Date and Time: 09/22/2020 5:09 am Signed by: MD JERNIGAN JEFFREY Transcribed Date and Time: 09/22/2020 5:11 [facility] Work Phone: [facility] Work Phone: RF Intro Long GI Tube w/ Flu oroon 09-22-2020 RF Intro Long GI Tube w/ Fluoro Patient Name: KATHYA HOOPER Fluoroscopy ACCESSION EXAM DATE/TIME PROCEDURE ORDERING PROVIDER [id number] 09/22/2020 04:09 EDT RF Intro Long GI Tube w/ ZakHayley JoesphZENY ELIZABETH Fluoro CPT code 19487 Reason For Exam (RF Intro Long GI Tube w/ Fluoro) confirm peg tube placement Report CLINICAL INFORMATION: G-tube replacement. KUB is provided both before and after the administration of Gastrografin via PEG tube. The examination is compared to a previous study dated 06/26/2020. FINDINGS: A gastrostomy tube overlies the epigastrium. Injected contrast is contained within the gastric lumen. There is no extravasation of contrast. The visualized small and large bowel are nondistended. The lung bases are clear. IMPRESSION: 1. PEG tube appears well-positioned. 2. Injected contrast is contained within the gastric lumen. Report Dictated on Final Dictating Physician: MD JERNIGAN JEFFREY Signed Date and Time: 09/22/2020 5:09 am Signed by: MD JERNIGAN JEFFREY Transcribed Date and Time: 09/22/2020 5:11 [facility] ED Provider Noteon ED Provider Note [facility]Jonn ED EMERGENCY DEPARTMENT ENCOUNTER Pt Name: Kathya Hooper Birthdate 1955 Date of evaluation: 06/26/2020 Provider: Abelardo Rios, CHIEF COMPLAINT Chief Complaint Patient presents with ? Feeding Tube Problem PEG tube problem HISTORY OF PRESENT ILLNESS (Location/Symptom, Timing/Onset, Context/Setting, Quality, Duration, Modifying Factors, Severity) Note limiting factors. I wore a n95 mask for the entirety of this encounter. Kathya Hooper is a 65 y.o. male who presents to the emergency department with his PEG tube broken. Patient states it has been in since 2019. On chart review, Dr. Lindquist placed the PEG tube in 2019. Patient states the tip of his tube broke off and he is unable to receive his normal tube feeds. Patient's only complaint is being hungry because he could not get tube feeds today. Patient denies any other chest pain, shortness of breath, fever, chills, weakness, numbness. Nursing Notes were reviewed. REVIEW OF SYSTEMS (2+ for level 4; 10+ for level 5) 14 systems reviewed and otherwise acutely negative except as in the [place]. PAST MEDICAL HISTORY Past Medical History: Diagnosis Date ? TREVER (acute kidney injury) (HCC) ? Alcohol abuse 07/08/2018 ? Anxiety ? Depression ? Fall 06/2018 ? Schizophrenia (HCC) SURGICAL HISTORY Past Surgical History: Procedure Laterality Date ? CERVICAL FUSION 07/09/2014 C2-6 cervical fusion ? GASTROSTOMY TUBE PLACEMENT 07/13/2018 ? TRACHEOSTOMY 07/13/2018 CURRENT MEDICATIONS Current Discharge Medication List CONTINUE these medications which have NOT CHANGED Details risperiDONE (RISPERDAL) 0.5 MG tablet Take 0.5 mg by mouth daily vitamin B-1 (THIAMINE) 100 MG tablet Take 100 mg by mouth daily vitamin D (CHOLECALCIFEROL) 1000 UNIT TABS tablet Take 1,000 Units by mouth daily acetaminophen (TYLENOL) 325 MG tablet Take 650 mg by mouth every 6 hours as needed for Pain aspirin 81 MG chewable tablet 1 tablet by Per NG tube route daily Qty: 30 tablet, Refills: 3 ipratropium-albuterol (DUONEB) 0.5-2.5 (3) MG/3ML SOLN nebulizer solution Inhale 3 mLs into the lungs every 4 hours Qty: 360 mL, Refills: 0 enoxaparin (LOVENOX) 30 MG/0.3ML injection Inject 0.3 mLs into the skin 2 times daily Qty: 30 Syringe, Refills: 0 atorvastatin (LIPITOR) 40 MG tablet 1 tablet by Per NG tube route nightly Qty: 30 tablet, Refills: 3 cloZAPine (CLOZARIL) 100 MG tablet 1 tablet by Per G Tube route 2 times daily Qty: 30 tablet, Refills: 3 sodium chloride, Inhalant, 3 % nebulizer solution Take 4 mLs by nebulization 4 times daily mineral oil-hydrophilic petrolatum (AQUAPHOR) ointment Apply topically as needed. Balsam [place] Oil (VENELEX) OINT ointment Apply topically every 8 hours docusate (COLACE) 50 MG/5ML liquid 10 mLs by Per NG tube route 2 times daily melatonin 3 MG TABS tablet 1 tablet by Per G Tube route nightly as needed (sleeplessness) Refills: 0 finasteride (PROSCAR) 5 MG tablet Take 1 tablet by mouth daily Qty: 30 tablet, Refills: 3 tamsulosin (FLOMAX) 0.4 MG capsule Take 1 capsule by mouth daily Qty: 30 capsule, Refills: 3 Multiple Vitamins-Minerals (CENTRUM/CERTA-JAVIER WITH MINERALS ORAL) solution Take 15 mLs by mouth daily Refills: 0 ALLERGIES Patient has no known allergies. FAMILY HISTORY No family history on file. SOCIAL HISTORY Social History Socioeconomic History ? Marital status: Single Spouse name: Not on file ? Number of children: Not on file ? Years of education: Not on file ? Highest education level: Not on file Occupational History ? Not on file Social Needs ? Financial resource strain: Not on file ? Food insecurity Worry: Not on file Inability: Not on file ? Transportation needs Medical: Not on file Non-medical: Not on file Tobacco Use ? Smoking status: Former Smoker Types: Cigars Quit date: 02/06/2016 Years since quittin.3 ? Smokeless tobacco: Never Used Substance and Sexual Activity ? Alcohol use: Yes Alcohol/week: 6.0 standard drinks Types: 6 Cans of beer per week Comment: 2 times per work, occasionally liquor ? Drug use: No Comment: quit pot 3 yrs ago. ? Sexual activity: Not on file Lifestyle ? Physical activity Days per week: Not on file Minutes per session: Not on file ? Stress: Not on file Relationships ? Social connections Talks on phone: Not on file Gets together: Not on file Attends christianity service: Not on file Active member of club or organization: Not on file Attends meetings of clubs or organizations: Not on file Relationship status: Not on file ? Intimate partner violence Fear of current or ex partner: Not on file Emotionally abused: Not on file Physically abused: Not on file Forced sexual activity: Not on file Other Topics Concern ? Not on file Social History Narrative ? Not on file SCREENINGS PHYSICAL EXAM (up to 7 for level 4, 8 or more for level (more content not included)... Normal [facility] FL GI TUBE EVALUATION W BRANDON Warner 06-26-2020 Patient Name: KATHYA HOOPER Fluoroscopy ACCESSION EXAM DATE/TIME PROCEDURE ORDERING PROVIDER [id number] 06/26/2020 20:20 EST RF Intro Long GI Tube w/ [id number] ABELARDO JANE CPT code 10063 Reason For Exam (RF Intro Long GI Tube w/ Fluoro) PEG tube placement Report Reason for examination: PEG tube placement. A preliminary view of the abdomen was performed. Scattered gas is noted in the small bowel and colon. The bowel gas pattern is nonspecific. A PEG tube is noted overlying the left paraspinal region in the mid abdomen. There is no evidence of organomegaly. No obvious pathologic calcifications are seen. 30 mL of contrast was administered by Dr. Rios through a PEG tube. I was not present for the examination. Contrast is noted within the stomach and duodenum. There is no evidence of extravasation of contrast. Report Dictated on --- Final --- Dictating Physician: MD HOLDER LAUREN B Signed Date and Time: 06/26/2020 9:15 pm Signed by: MD HOLDER LAUREN B Transcribed Date and Time: 06/26/2020 9:16 [facility] Work Phone: [facility], [facility] Incoming Radiology Results From [facility] - 06/26/2020 9:16 PM EST Patient Name: KATHYA HOOPER Fluoroscopy ACCESSION EXAM DATE/TIME PROCEDURE ORDERING PROVIDER [id number] 06/26/2020 20:20 EST RF Intro Long GI Tube w/ [id number] -ABELARDO RIOS CPT code 72068 Reason For Exam (RF Intro Long GI Tube w/ Fluoro) PEG tube placement Report Reason for examination: PEG tube placement. A preliminary view of the abdomen was performed. Scattered gas is noted in the small bowel and colon. The bowel gas pattern is nonspecific. A PEG tube is noted overlying the left paraspinal region in the mid abdomen. There is no evidence of organomegaly. No obvious pathologic calcifications are seen. 30 mL of contrast was administered by Dr. Rios through a PEG tube. I was not present for the examination. Contrast is noted within the stomach and duodenum. There is no evidence of extravasation of contrast. Report Dictated on --- Final --- Dictating Physician: MD HOLDER LAUREN B Signed Date and Time: 06/26/2020 9:15 pm Signed by: MD HOLDER LAUREN B Transcribed Date and Time: 06/26/2020 9:16 [facility] Work Phone: Feeding Tubeon 06-26-2020 Abelardo Rios DO 06/26/2020 9:50 PM Feeding Tube Date/Time: 06/26/2020 9:50 PM Performed by: Abelardo Rios DO Authorized by: Abelardo Rios DO Consent: Consent obtained: Verbal Consent given by: Patient Risks discussed: Bleeding, infection and pain Pre-procedure details: Old tube type: Gastrostomy Old tube size: 18 Fr Anesthesia (see MAR for exact dosages): Anesthesia method: None Procedure details: Patient position: Supine Procedure type: Replacement Tube type: Gastrostomy Tube size: 22. Bulb inflation volume: 15 Bulb inflation fluid: Normal saline Post-procedure details: Placement/position confirmation: X-ray Placement difficulty: None Bleeding: None Patient tolerance of procedure: Tolerated well, no immediate complications [facility] Work Phone: RF Intro Long GI Tube w/ Flu oroon 06-26-2020 RF Intro Long GI Tube w/ Fluoro Patient Name: KATHYA HOOPER Fluoroscopy ACCESSION EXAM DATE/TIME PROCEDURE ORDERING PROVIDER [id number] 06/26/2020 20:20 EST RF Intro Long GI Tube w/ [id number] -ABELARDO RIOS CPT code 80187 Reason For Exam (RF Intro Long GI Tube w/ Fluoro) PEG tube placement Report Reason for examination: PEG tube placement. A preliminary view of the abdomen was performed. Scattered gas is noted in the small bowel and colon. The bowel gas pattern is nonspecific. A PEG tube is noted overlying the left paraspinal region in the mid abdomen. There is no evidence of organomegaly. No obvious pathologic calcifications are seen. 30 mL of contrast was administered by Dr. Rios through a PEG tube. I was not present for the examination. Contrast is noted within the stomach and duodenum. There is no evidence of extravasation of contrast. Report Dictated on Final Dictating Physician: MD HOLDER LAUREN B Signed Date and Time: 06/26/2020 9:15 pm Signed by: MD HOLDER LAUREN B Transcribed Date and Time: 06/26/2020 9:16 Normal [facility] Clinical Summary: HMSPatient IDon 05-22-2019 WOP [facility] Work Phone: Office Visit: New - 1st visi t with practice, Rm: 2on 05-22-2019 NEGATED: Highlighted rowCT scan history of the right lower extremity on 05/16/2019 at [facility] Work Phone: NEGATED: Highlighted rowTobacco smoking status NHIS current someday smoker [facility] Work Phone: NEGATED: Highlighted rowxray history of the pelvis with hip on 05/11/2019 at [facility] , of the pelvis on 05/13/2019 at [facility] Work Phone: CT LOWER EXTREMITY RIGHT WO CONTRASTOrdered By: Elizabeth Moura on 05-16-2019 Patient Name: KATHYA HOOPER ---CT--- Exam Date/Time 05/16/2019 21:10:[address] Low Ext w/o Contrast Right Ordering Physician ELIZABETH BARKER Accession Number [id number] CPT4 Codes 32783 () Reason For Exam right hip pain, fall 3 days ago, negative plain films, persistent pain Report CT scan right hip: 05/16/2019. CLINICAL INFORMATION: Pain, negative radiographs. FINDINGS: CT scans of the right hip were performed at thin section imaging with bony targeting. No prior studies for comparison. There is moderate narrowing of the right femoral acetabular joint with spurring from the right femoral head and inferior and superior rims of the glenoid. There is no evidence of fracture or dislocation. The superior and inferior pubic rami are unremarkable. IMPRESSION: No acute bony process. Degenerative changes. Report Dictated on --- Final --- Dictating Physician: MD JOHNSON RISA Signed Date and Time: 05/16/2019 9:23 pm Signed by: MD JOHNSON RISA Transcribed Date and Time: 05/16/2019 9:24 [facility] Work Phone: [facility], [facility] Incoming Radiology Results From [facility] - 05/16/2019 9:24 PM EST Patient Name: KATHYA HOOPER ---CT--- Exam Date/Time 05/16/2019 21:10:[address] Low Ext w/o Contrast Right Ordering Physician Zak16 JoesphELIZABETH MOURA Accession Number [id number] CPT4 Codes 62242 () Reason For Exam right hip pain, fall 3 days ago, negative plain films, persistent pain Report CT scan right hip: 05/16/2019. CLINICAL INFORMATION: Pain, negative radiographs. FINDINGS: CT scans of the right hip were performed at thin section imaging with bony targeting. No prior studies for comparison. There is moderate narrowing of the right femoral acetabular joint with spurring from the right femoral head and inferior and superior rims of the glenoid. There is no evidence of fracture or dislocation. The superior and inferior pubic rami are unremarkable. IMPRESSION: No acute bony process. Degenerative changes. Report Dictated on --- Final --- Dictating Physician: MD JOHNSON RISA Signed Date and Time: 05/16/2019 9:23 pm Signed by: MD JOHNSON RISA Transcribed Date and Time: 05/16/2019 9:24 [facility] Work Phone: Differential,Body Fluidson 0 09-27-2018 Other Cells 46 % Normal [facility] Comment on above: Result Comment: Bloo dy specimen with reactive mesothelial cells and chronic inflammation with occasional hemophagocytosis. 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 [address] #### VD25H #### [facility] [address] [place] [address] CULTURE AND STAIN - FLUIDon 09-25-2018 CULTURE AND STAIN - FLUID CULTURE & STAIN - FLUID --> Status: F No growth at 5 days. STAIN GRAM --> Status: F Moderate polymorphonuclear cells/lpf. Moderate mononuclear cells/lpf No organisms seen. Cytocentrifugation performed. Moderate mononuclear cells/lpf No organisms seen. Cytocentrifugation performed. Normal [facility] Comment on above: Performed By: #### H EMDF, PT, BMP3M, PHOS3, MG3, CK3 #### [facility] [address] [place] [address] #### VD25H #### [facility] [address] [place] [address] Cell Count,Body Fluidon 05-2 Nucleated Cells 2391 {cells}/uL Normal [facility] Comment on above: Performed By: #### H EMDF, PT, BMP3M, PHOS3, MG3, CK3 #### [place] [address] [place], [place] #### VD25H #### [facility] [address] [place] [address] RBC [place] [address] {RBC}/uL Normal [facility] Comment on above: Performed By: #### H EMDF, PT, BMP3M, PHOS3, MG3, CK3 #### [place] [address] [place], [place] #### VD25H #### [place] [address] [place] [address] Fluid Type Thoracentesis Normal [facility] Comment on above: Performed By: #### H EMDF, PT, BMP3M, PHOS3, MG3, CK3 #### [address] #### VD25H #### [place] [address] [place] [address] Differential,Body Fluidson 0 09-25-2018 Lymphocytes/100 WBC (Bld) 28 % Normal [facility] Comment on above: Performed By: #### H EMDF, PT, BMP3M, PHOS3, MG3, CK3 #### [place] [address] [place], [place] #### VD25H #### [place] [address] [place] [address] Monocytes/100 WBC (Bld) 1 % Normal [facility] Comment on above: Performed By: #### H EMDF, PT, BMP3M, PHOS3, MG3, CK3 #### [place] [address] [place], [place] #### VD25H #### [place] [address] [place] [address] Neutrophils/100 WBC (Bld) 25 % Normal [facility] Comment on above: Performed By: #### H EMDF, PT, BMP3M, PHOS3, MG3, CK3 #### [facility] [address] [place], [place] #### VD25H #### [facility] [address] [place] [address] Cells Counted for Diff 100 Normal [facility] Comment on above: Performed By: #### H EMDF, PT, BMP3M, PHOS3, MG3, CK3 #### [place] [address] [place], [place] #### VD25H #### [facility] [address] [place] [address] LDH, Body Fluidon 09-25-2018 LDH, Body Fluid 174 U/L Normal No Range [facility] Comment on above: Performed By: #### H EMDF, PT, BMP3M, PHOS3, MG3, CK3 #### [place] [address] [place], [place] #### VD25H #### [facility] [address] [place] [address] Protein, Total Body Fluidon 09-25-2018 Protein,Total-Body Fld 3.4 g/dL Normal No Range [facility] Comment on above: Performed By: #### H EMDF, PT, BMP3M, PHOS3, MG3, CK3 #### [place] [address] [place], [place] #### VD25H #### [facility] [address] [place] [address] US Thora-Aspir Pleura w/ Evelin geon 09-25-2018 US Thora-Aspir Pleura w/ Image Patient Name: KATHYA HOOPER Ultrasound Exam Date/Time 09/25/2018 13:23:41 EDT Exam US Thora-Aspir Pleura w/ Image Ordering Physician SALO DAVIS Accession Number [id number] CPT4 Codes 84429 () Reason For Exam pleural effusion Report THORACENTESIS LEFT SIDE CLINICAL INDICATION: Left pleural effusion TECHNIQUE: Ultrasound guidance used. FINDINGS: Written informed consent was obtained and placed in the patient's chart for an ultrasound-guided thoracentesis. The exam was performed under the supervision of Dr. Malcolm Michaels, by Anila De La Vega PA-C. Patient was in a decubitus position. Ultrasound was used to scan and localize a pocket of fluid in the left pleural cavity. After localization of a pocket of fluid, sterile prep and drape was performed. 1% lidocaine was used as local anesthetic. Through this region, and with ultrasound guidance, a Yueh catheter was inserted into the pleural cavity. 250 mL of praneeth-colored pleural effusion was aspirated. The patient tolerated the procedure well and no immediate complications occurred. Specimen was sent to lab for analysis. Ultrasound images are available for viewing. IMPRESSION: Successful left side thoracentesis as described above. Specimen sent the lab for analysis. Report Dictated on Final Dictated: 09/25/2018 3:07 pm Dictating Physician: KRISTA DE LA VEGA JENNIFER Signed Date and Time: 09/25/2018 3:08 pm Signed by: KRISTA DE LA VEGA JENNIFER Transcribed Date and Time: 09/25/2018 3:07 [facility] CULTURE MYCOBACTERIAon 09-03 CULTURE MYCOBACTERIA CULTURE MYCOBACTERI A --> Status: F No acid-fast bacilli isolated after 6 weeks incubation. [facility] Comment on above: Performed By: #### H EMDF, PT, BMP3M, PHOS3, MG3, CK3 #### [facility] [address] [place] [address] #### VD25H #### [facility] [address] [facility] [place] [address] CULTURE URINEon 08-23-2018 CULTURE URINE CULTURE URINE --> Status: F No growth (<1,000 CFU/ml). [facility] Comment on above: Order Comment: Speci men Source Comment:Urine, clean catch Performed By: #### H EMDF, PT, BMP3M, PHOS3, MG3, CK3 #### [facility] [employer] [facility] [address] [place] [address] #### VD25H #### [facility] [employer] [facility] [address] [place] [address] CR Chest Portableon 08-23-19 19 CR Chest Portable Patient Name: KATHYA HOOPER Diagnostic Radiology Exam Date/Time 08/22/2018 07:07:07 EDT Exam CR Chest Portable Ordering Physician HIRAM ONEIL Accession Number [id number] CPT4 Codes 96715 () Reason For Exam dyspnea Report Portable chest 08/22/2018: Clinical Information: Dyspnea. Findings: A single AP portable view of the chest was obtained at 651 hours. Comparison was made to the prior study prior day. A tracheostomy tube and Dobbhoff feeding tube are unchanged. A right-sided PICC line has been repositioned. There is a loop in the region of the subclavian on the right with the tip is in the region of the superior vena cava. There is increased density behind the heart on the left consistent with left lower lobe atelectasis, effusion or infiltrate. The lung bauer are otherwise clear. Report Dictated on Final Dictated: 08/22/2018 7:31 am Dictating Physician: MD JOHNSON RISA Signed Date and Time: 08/22/2018 7:32 am Signed by: MD JOHNSON RISA Transcribed Date and Time: 08/22/2018 7:31 Normal [facility] [employer] [facility] Glucose,Bedsideon 08-22-2018 Glucose mass conc 127 mg/dL High 70-[address] [facility] Comment on above: Result Comment: Test performed by glucose meter. Results may be 10%-15% lower than serum/plasma values. (CLIA ID [id number]) Performed By: #### H EMDF, PT, BMP3M, PHOS3, MG3, CK3 #### [facility] [employer] [facility] [address] [place] [address] #### VD25H #### [facility] [employer] [facility] [address] [place] [address] Urinalysis,Macroon 9 Appearance Nom (U) clear Normal Clear [facility] Comment on above: Performed By: #### H EMDF, PT, BMP3M, PHOS3, MG3, CK3 #### [facility] [address] [place], [place] #### VD25H #### [facility] [address] [place] [address] Bilirubin,Ur Negative Normal Negative [facility] Comment on above: Performed By: #### H EMDF, PT, BMP3M, PHOS3, MG3, CK3 #### [place] [address] [place], [place] #### VD25H #### [facility] [address] [place] [address] Color Nom (U) dk.yel Normal Lt. Yellow [facility] Comment on above: Performed By: #### H EMDF, PT, BMP3M, PHOS3, MG3, CK3 #### [place] [address] [place], [place] #### VD25H #### [facility] [address] [place] [address] Glucose Ql (U) NORM Normal Negative [facility] Comment on above: Performed By: #### H EMDF, PT, BMP3M, PHOS3, MG3, CK3 #### [address] #### VD25H #### [facility] [address] [place] [address] Ketone,Urine Negative Normal Negative [facility] Comment on above: Performed By: #### H EMDF, PT, BMP3M, PHOS3, MG3, CK3 #### [address] #### VD25H #### [facility] [address] [place] [address] Nitrite Ql (U) Negative Normal Negative [facility] Comment on above: Performed By: #### H EMDF, PT, BMP3M, PHOS3, MG3, CK3 #### [place] [address] [address] [facility], [place] #### VD25H #### [facility] [address] [place] [address] Occult Blood,Ur Negative Normal Negative [facility] Comment on above: Performed By: #### H EMDF, PT, BMP3M, PHOS3, MG3, CK3 #### [place] [address] [facility], [place] #### VD25H #### [facility] [address] [place] [address] pH (U) 8.0 Normal 5.0-8.0 [facility] Comment on above: Performed By: #### H EMDF, PT, BMP3M, PHOS3, MG3, CK3 #### [address] #### VD25H #### [place] [address] [place] [address] Protein mass conc (U) Negative Normal Negative [facility] Comment on above: Performed By: #### H EMDF, PT, BMP3M, PHOS3, MG3, CK3 #### [address] [place], [place] #### VD25H #### [place] [address] [place] [address] Specific [place],Urine 1.015 Normal 1.005-1.030 S [facility] Comment on above: Performed By: #### H EMDF, PT, BMP3M, PHOS3, MG3, CK3 #### [place] [address] [address] [facility], [place] #### VD25H #### [facility] [address] [place] [address] Urobilinogen Qn (U) 1 mg/dL Normal 0-1 [facility] Comment on above: Performed By: #### H EMDF, PT, BMP3M, PHOS3, MG3, CK3 #### [place] [address] [address] [facility], [place] #### VD25H #### [facility] [address] [place] [address] WBC #/vol (Bld) Negative Normal Negative [facility] Comment on above: Performed By: #### H EMDF, PT, BMP3M, PHOS3, MG3, CK3 #### [place] [address] [place], [place] #### VD25H #### [facility] [address] [place] [address] Basic Metabolic Panelon 04-2 Calcium mass conc 7.8 mg/dL Low 8.4-10.[address] [facility] Comment on above: Performed By: #### H EMDF, PT, BMP3M, PHOS3, MG3, CK3 #### [place] [address] [place], [place] #### VD25H #### [facility] [address] [place] [address] Glucose mass conc 102 mg/dL High 70-[address] [facility] Comment on above: Performed By: #### H EMDF, PT, BMP3M, PHOS3, MG3, CK3 #### [place] [address] [place], [place] #### VD25H #### [facility] [address] [place] [address] Anion gap molar conc 0 Normal [facility] Comment on above: Performed By: #### H EMDF, PT, BMP3M, PHOS3, MG3, CK3 #### [address] #### VD25H #### [facility] [address] [place] [address] CO2 molar conc 37 mmol/L High 22-30 [facility] Comment on above: Performed By: #### H EMDF, PT, BMP3M, PHOS3, MG3, CK3 #### [place] [address] [place], [place] #### VD25H #### [facility] [address] [place] [address] Creatinine mass conc 0.46 mg/dL Low 0.52-1.25 [facility] Comment on above: Performed By: #### H EMDF, PT, BMP3M, PHOS3, MG3, CK3 #### [address] #### VD25H #### [facility] [address] [place] [address] GFR/1.73 sq M predicted among blacks MDRD vol rate/area (S/P/Bld) mL/min/{1.73_m2} Normal >60 [facility] Comment on above: Performed By: #### H EMDF, PT, BMP3M, PHOS3, MG3, CK3 #### [address] #### VD25H #### [facility] [address] [place] [address] GFR/1.73 sq M predicted among non-blacks MDRD vol rate/area (S/P/Bld) mL/min/{1.73_m2} Normal >60 [facility] Comment on above: Result Comment: Sour ce- MDRD equation with creatinine calibration to IDMS(NKDEP) eGFR not recommended for drug dose adjustment Performed By: #### H EMDF, PT, BMP3M, PHOS3, MG3, CK3 #### [address] #### VD25H #### [facility] [address] [place] [address] Urea nitrogen mass conc 7 mg/dL Normal 7-20 S [facility] Comment on above: Performed By: #### H EMDF, PT, BMP3M, PHOS3, MG3, CK3 #### [address] #### VD25H #### [facility] [address] [place] [address] Potassium molar conc 3.7 mmol/L Normal 3.5-5.1 [facility] Comment on above: Performed By: #### H EMDF, PT, BMP3M, PHOS3, MG3, CK3 #### [facility] [address] [place] [address] #### VD25H #### [facility] [address] [place] [address] Chloride molar conc 101 mmol/L Normal 98-107 [facility] Comment on above: Performed By: #### H EMDF, PT, BMP3M, PHOS3, MG3, CK3 #### [facility] [address] [place] [address] #### VD25H #### [facility] [address] [place] [address] Sodium molar conc 138 mmol/L Normal 135-[address] [facility] Comment on above: Performed By: #### H EMDF, PT, BMP3M, PHOS3, MG3, CK3 #### [facility] [address] [place] [address] #### VD25H #### [facility] [address] [place] [address] CR Chest Portableon 08-22-19 CR Chest Portable Patient Name: KATHYA HOOPER Diagnostic Radiology Exam Date/Time 08/21/2018 09:46:47 EDT Exam CR Chest Portable Ordering Physician MALLORY STAPLES Accession Number [id number] CPT4 Codes 22813 () Reason For Exam edema Report PORTABLE CHEST X-RAY CLINICAL INDICATION: Pulmonary edema A portable frontal view of the chest was obtained. COMPARISON: 08/17/2018 FINDINGS: The heart size is within normal limits. Right-sided PICC line now terminates superiorly in the expected location of the right jugular vein. Repositioning is recommended. Tracheostomy tube and feeding tube are unchanged in position. Previously noted pulmonary vascular congestion has improved somewhat. There continues to be left lower lobe infiltrate and small left pleural effusion. No pneumothorax is seen. Bony structures are unremarkable. IMPRESSION: Right-sided PICC line now terminates in the expected location of the right jugular vein. Repositioning is recommended. Improvement of previously noted pulmonary vascular congestion. Left retrocardiac infiltrate and small left pleural effusion. Report Dictated on Final Dictated: 08/21/2018 11:14 am Dictating Physician: MD RODRIGUEZ JONATHAN R Signed Date and Time: 08/21/2018 11:15 am Signed by: MD RODRIGUEZ JONATHAN R Transcribed Date and Time: 08/21/2018 11:14 Normal [facility] CULTURE ANAEROBEon 9 CULTURE ANAEROBE CULTURE ANAEROBE --> Status: F No growth of anaerobes at 5 days. Normal [facility] Comment on above: Order Comment: or co llected Performed By: #### H EMDF, PT, BMP3M, PHOS3, MG3, CK3 #### [facility] [employer] [address] [place], [place] #### VD25H #### [employer]83 [employer] [facility] [address] [place] [address] Glucose,Bedsideon 08-21-2018 Glucose mass conc 124 mg/dL High 70-100 [facility] Comment on above: Result Comment: Test performed by glucose meter. Results may be 10%-15% lower than serum/plasma values. (CLIA ID [id number]) Performed By: #### H EMDF, PT, BMP3M, PHOS3, MG3, CK3 #### [employer] [address] [place] [address] #### VD25H #### [employer] [facility] [address] [place] [address] Glucose mass conc 135 mg/dL High 70-100 [facility] Comment on above: Result Comment: Test performed by glucose meter. Results may be 10%-15% lower than serum/plasma values. (CLIA ID [id number]) Performed By: #### H EMDF, PT, BMP3M, PHOS3, MG3, CK3 #### [facility] [address] [place] [address] #### VD25H #### [employer] [address] [place] [address] Glucose mass conc 131 mg/dL High 70-[address] [facility] Comment on above: Result Comment: Test performed by glucose meter. Results may be 10%-15% lower than serum/plasma values. (CLIA ID [id number]) Performed By: #### H EMDF, PT, BMP3M, PHOS3, MG3, CK3 #### [address] [address] [place] [address] #### VD25H #### [facility] [address] [place] [address] Glucose mass conc 112 mg/dL High 70-[address] [facility] Comment on above: Result Comment: Test performed by glucose meter. Results may be 10%-15% lower than serum/plasma values. (CLIA ID [id number]) Performed By: #### H EMDF, PT, BMP3M, PHOS3, MG3, CK3 #### [address] #### VD25H #### [facility] [address] [place] [address] Basic Metabolic Panelon 04-2 Anion gap molar conc 4 Normal [facility] Comment on above: Performed By: #### H EMDF, PT, BMP3M, PHOS3, MG3, CK3 #### [address] #### VD25H #### [facility] [address] [place] [address] Calcium mass conc 7.6 mg/dL Low 8.4-10.[address] [facility] Comment on above: Performed By: #### H EMDF, PT, BMP3M, PHOS3, MG3, CK3 #### [address] #### VD25H #### [facility] [address] [place] [address] CO2 molar conc 36 mmol/L High 22-30 [facility] Comment on above: Performed By: #### H EMDF, PT, BMP3M, PHOS3, MG3, CK3 #### [address] [place], [place] #### VD25H #### [facility] [address] [place] [address] Glucose mass conc 121 mg/dL High 70-[address] [facility] Comment on above: Performed By: #### H EMDF, PT, BMP3M, PHOS3, MG3, CK3 #### [address] [address] [facility], [place] #### VD25H #### [facility] [address] [place] [address] Urea nitrogen mass conc 9 mg/dL Normal 7-20 S [facility] Comment on above: Performed By: #### H EMDF, PT, BMP3M, PHOS3, MG3, CK3 #### [address] #### VD25H #### [facility] [address] [place] [address] Creatinine mass conc 0.51 mg/dL Low 0.52-1.25 [facility] Comment on above: Performed By: #### H EMDF, PT, BMP3M, PHOS3, MG3, CK3 #### [address] [place], [place] #### VD25H #### [facility] [address] [place] [address] GFR/1.73 sq M predicted among blacks MDRD vol rate/area (S/P/Bld) mL/min/{1.73_m2} Normal >60 [facility] Comment on above: Performed By: #### H EMDF, PT, BMP3M, PHOS3, MG3, CK3 #### [address], [place] #### VD25H #### [facility] [address] [place] [address] GFR/1.73 sq M predicted among non-blacks MDRD vol rate/area (S/P/Bld) mL/min/{1.73_m2} Normal >[address] [facility] Comment on above: Result Comment: Sour ce- MDRD equation with creatinine calibration to IDMS(NKDEP) eGFR not recommended for drug dose adjustment Performed By: #### H EMDF, PT, BMP3M, PHOS3, MG3, CK3 #### [facility] [address] [place] [address] #### VD25H #### [facility] [address] [place] [address] Chloride molar conc 100 mmol/L Normal 98-107 [facility] Comment on above: Performed By: #### H EMDF, PT, BMP3M, PHOS3, MG3, CK3 #### [address] [address] [facility] [place] #### VD25H #### [facility] [address] [place] [address] Potassium molar conc 3.3 mmol/L Low 3.5-5.1 [facility] Comment on above: Performed By: #### H EMDF, PT, BMP3M, PHOS3, MG3, CK3 #### [address], [place] #### VD25H #### [facility] [address] [place] [address] Sodium molar conc 140 mmol/L Normal 135-[address] [facility] Comment on above: Performed By: #### H EMDF, PT, BMP3M, PHOS3, MG3, CK3 #### [facility] [address] [facility] [place] #### VD25H #### [facility] [address] [place] [address] Glucose,Bedsideon 08-20-2018 Glucose mass conc 121 mg/dL High 70-[address] [facility] Comment on above: Result Comment: Test performed by glucose meter. Results may be 10%-15% lower than serum/plasma values. (CLIA ID [id number]) Performed By: #### H EMDF, PT, BMP3M, PHOS3, MG3, CK3 #### [address] [place], [place] #### VD25H #### [facility] [address] [place] [address] Glucose mass conc 127 mg/dL High 70-[address] [facility] Comment on above: Result Comment: Test performed by glucose meter. Results may be 10%-15% lower than serum/plasma values. (CLIA ID [id number]) Performed By: #### H EMDF, PT, BMP3M, PHOS3, MG3, CK3 #### [address] [address] [place], [place] #### VD25H #### [facility] [address] [place] [address] Hep A Abs, Totalon 9 Hep A Abs, Total Negative Normal Negative [facility] Comment on above: Result Comment: Perf ormed by [employer], [address] [place] [id number] [email or web address] MD - Lab. Director Performed By: #### H EMDF, PT, BMP3M, PHOS3, MG3, CK3 #### [address] #### VD25H #### [facility] [address] [place] [address] Basic Metabolic Panelon - Anion gap molar conc 1 Normal [facility] Comment on above: Performed By: #### H EMDF, PT, BMP3M, PHOS3, MG3, CK3 #### [address] #### VD25H #### [facility] [address] [place] [address] Calcium mass conc 7.6 mg/dL Low 8.4-10.[address] [facility] Comment on above: Performed By: #### H EMDF, PT, BMP3M, PHOS3, MG3, CK3 #### [address] #### VD25H #### [facility] [address] [place] [address] CO2 molar conc 33 mmol/L High 22-30 [facility] Comment on above: Performed By: #### H EMDF, PT, BMP3M, PHOS3, MG3, CK3 #### [address] [place], [place] #### VD25H #### [facility] [address] [place] [address] Glucose mass conc 139 mg/dL High 70-[address] [facility] Comment on above: Performed By: #### H EMDF, PT, BMP3M, PHOS3, MG3, CK3 #### [address] #### VD25H #### [place] [address] [place] [address] Urea nitrogen mass conc 10 mg/dL Normal 7-20 S [facility] Comment on above: Performed By: #### H EMDF, PT, BMP3M, PHOS3, MG3, CK3 #### [address] #### VD25H #### [facility] [address] [place] [address] Creatinine mass conc 0.57 mg/dL Normal 0.52-1.25 [facility] Comment on above: Performed By: #### H EMDF, PT, BMP3M, PHOS3, MG3, CK3 #### [address] [place], [place] #### VD25H #### [facility] [address] [place] [address] GFR/1.73 sq M predicted among blacks MDRD vol rate/area (S/P/Bld) mL/min/{1.73_m2} Normal >60 [facility] Comment on above: Performed By: #### H EMDF, PT, BMP3M, PHOS3, MG3, CK3 #### [address] #### VD25H #### [facility] [address] [place] [address] GFR/1.73 sq M predicted among non-blacks MDRD vol rate/area (S/P/Bld) mL/min/{1.73_m2} Normal >60 [facility] Comment on above: Result Comment: Sour ce- MDRD equation with creatinine calibration to IDMS(NKDEP) eGFR not recommended for drug dose adjustment Performed By: #### H EMDF, PT, BMP3M, PHOS3, MG3, CK3 #### [facility] [address] [place], [place] #### VD25H #### [facility] [address] [place] [address] Potassium molar conc 3.4 mmol/L Low 3.5-5.1 [facility] Comment on above: Performed By: #### H EMDF, PT, BMP3M, PHOS3, MG3, CK3 #### [facility] [address] [place], [place] #### VD25H #### [facility] [address] [place] [address] Chloride molar conc 104 mmol/L Normal 98-107 [facility] Comment on above: Performed By: #### H EMDF, PT, BMP3M, PHOS3, MG3, CK3 #### [facility] [address] [place], [place] #### VD25H #### [facility] [address] [place] [address] Sodium molar conc 138 mmol/L Normal 135-145 [facility] Comment on above: Performed By: #### H EMDF, PT, BMP3M, PHOS3, MG3, CK3 #### [address] #### VD25H #### [facility] [address] [place] [address] CULT./ST. BACTERIAon 019 CULT./ST. BACTERIA STAIN GRAM --> Status: F Moderate polymorphonuclear cells/lpf. Moderate gram negative bacilli. Rare gram positive bacilli. Moderate gram negative bacilli. Rare gram positive bacilli. 1 Organism Klebsiella pneumoniae Moderate 2 Organism Citrobacter youngae Few This phenotype is suggestive of an ESBL-producing organism. Treatment with beta-lactam antibiotics other than carbapenems may not be effective. An ID consult may be warranted. 3 Organism Enterococcus faecalis Few 1 Organism Antibiotic Result Intrp Amikacin(CHRISTI) <= 2 S Amoxicillin/Clavulani c Acid(CHRISTI) = 4 S Ampicillin(CHRISTI) R Ampicillin/Sulbactam( HCRISTI) = 8 S Aztreonam(CHRISTI) <= 1 S Cefazolin(CHRISTI) <= 4 S Cefepime(CHRISTI) <= 1 S Ceftriaxone(CHRISTI) <= 1 S Ciprofloxacin(CHRISTI) <= 0.25 S Ertapenem(CHRISTI) <= 0.5 S Gentamicin(CHRISTI) <= 1 S Levofloxacin(CHRISTI) <= 0.12 S Meropenem(CHRISTI) <= 0.25 S Pip/Tazobactam(CHRISTI) = 8 S Tetracycline(CHRISTI) = 2 S Trimeth/Sulfa(CHRISTI) <= 20 S 2 Organism Antibiotic Result Intrp Amikacin(CHRISTI) <= 2 S Amoxicillin/Clavulani c Acid(CHRISTI) R Ampicillin(CHRISTI) R Ampicillin/Sulbactam( CHRISTI) R Aztreonam(CHRISTI) R Cefazolin(CHRISTI) R Cefepime(CHRISTI) R Ceftriaxone(CHRISTI) R Ciprofloxacin(CHRISTI) <= 0.25 S Ertapenem(CHRISTI) <= 0.5 S Gentamicin(CHRISTI) <= 1 S Levofloxacin(CHRISTI) <= 0.12 S Meropenem(CHRISTI) <= 0.25 S Pip/Tazobactam(CHRISTI) R Tetracycline(CHRISTI) = 2 S Trimeth/Sulfa(CHRISTI) <= 20 S 3 Organism Antibiotic Result Intrp Ampicillin(CHRISTI) <= 2 S Gentamicin High Level synergy(CHRISTI) SYN-S S Linezolid(CHRISTI) = 2 S Streptomycin High Level synergy(CHRISTI)SYN-S S Tigecycline(CHRISTI) <= 0.12 S Vancomycin(CHRISTI) = 1 S Normal [employer] Comment on above: Order Comment: or co llected Performed By: #### H EMDF, PT, BMP3M, PHOS3, MG3, CK3 #### [facility] [address] [facility], [place] #### VD25H #### [facility] [address] [place] [address] Basic Metabolic Panelon 04-2 Calcium mass conc 7.8 mg/dL Low 8.4-10.4 [facility] Comment on above: Performed By: #### H EMDF, PT, BMP3M, PHOS3, MG3, CK3 #### [address] [address] [address] [facility], [place] #### VD25H #### [facility] [address] [place] [address] Glucose mass conc 104 mg/dL High 70-100 [facility] Comment on above: Performed By: #### H EMDF, PT, BMP3M, PHOS3, MG3, CK3 #### [address] [address] [address] [facility], [place] #### VD25H #### [facility] [address] [place] [address] Urea nitrogen mass conc 12 mg/dL Normal 7-20 S [facility] Comment on above: Performed By: #### H EMDF, PT, BMP3M, PHOS3, MG3, CK3 #### [address] [facility], [place] #### VD25H #### [facility] [address] [place] [address] Anion gap molar conc 5 Normal [facility] Comment on above: Performed By: #### H EMDF, PT, BMP3M, PHOS3, MG3, CK3 #### [address] [address] [address] [facility], [place] #### VD25H #### [facility] [address] [place] [address] CO2 molar conc 26 mmol/L Normal 22-30 [facility] Comment on above: Performed By: #### H EMDF, PT, BMP3M, PHOS3, MG3, CK3 #### [address] [place], [place] #### VD25H #### [facility] [address] [place] [address] Creatinine mass conc 0.61 mg/dL Normal 0.52-1.25 [facility] Comment on above: Performed By: #### H EMDF, PT, BMP3M, PHOS3, MG3, CK3 #### [facility] [address] [place], [place] #### VD25H #### [facility] [address] [place] [address] GFR/1.73 sq M predicted among blacks MDRD vol rate/area (S/P/Bld) mL/min/{1.73_m2} Normal >60 [facility] Comment on above: Performed By: #### H EMDF, PT, BMP3M, PHOS3, MG3, CK3 #### [address] [place], [place] #### VD25H #### [facility] [address] [place] [address] GFR/1.73 sq M predicted among non-blacks MDRD vol rate/area (S/P/Bld) mL/min/{1.73_m2} Normal >60 [facility] Comment on above: Result Comment: Sour ce- MDRD equation with creatinine calibration to IDMS(NKDEP) eGFR not recommended for drug dose adjustment Performed By: #### H EMDF, PT, BMP3M, PHOS3, MG3, CK3 #### [facility] [address] [place], [place] #### VD25H #### [facility] [address] [place] [address] Chloride molar conc 107 mmol/L Normal 98-107 [facility] Comment on above: Performed By: #### H EMDF, PT, BMP3M, PHOS3, MG3, CK3 #### [facility] [address] [place], [place] #### VD25H #### [facility] [address] [place] [address] Potassium molar conc 3.4 mmol/L Low 3.5-5.1 [facility] Comment on above: Performed By: #### H EMDF, PT, BMP3M, PHOS3, MG3, CK3 #### [facility] [address] [place], [place] #### VD25H #### [facility] [address] [place] Sodium molar conc 138 mmol/L Normal 135-145 [facility] Comment on above: Performed By: #### H EMDF, PT, BMP3M, PHOS3, MG3, CK3 #### [facility] [address] [place], [place] #### VD25H #### [facility] [address] [place] [address] Glucose,Bedsideon 08-18-2018 Glucose mass conc 113 mg/dL High 70-100 [facility] Comment on above: Result Comment: Test performed by glucose meter. Results may be 10%-15% lower than serum/plasma values. (CLIA ID [id number]) Performed By: #### H EMDF, PT, BMP3M, PHOS3, MG3, CK3 #### [address] [place], [place] #### VD25H #### [facility] [address] [place] [address] Hemogram w/ Autodiffon 08-18 Erythrocyte distribution width Ratio (RBC) 14.4 % Normal 11.5-14.5 [facility] Comment on above: Performed By: #### H EMDF, PT, BMP3M, PHOS3, MG3, CK3 #### [facility] [address] [place], [place] #### VD25H #### [facility] [address] [place] [address] Hematocrit Volume Fraction (Bld) 29.3 % Low 40.0-52.0 [facility] Comment on above: Performed By: #### H EMDF, PT, BMP3M, PHOS3, MG3, CK3 #### [facility] [address] [place], [place] #### VD25H #### [facility] [address] [place] [address] Hemoglobin mass conc (Bld) 9.8 g/dL Low 13.0-18.0 [facility] Comment on above: Performed By: #### H EMDF, PT, BMP3M, PHOS3, MG3, CK3 #### [address] #### VD25H #### [facility] [address] [place] [address] MCH Entitic mass (RBC) 28.0 pg Normal 26.0-34.0 [facility] Comment on above: Performed By: #### H EMDF, PT, BMP3M, PHOS3, MG3, CK3 #### [address] #### VD25H #### [facility] [address] [place] [address] MCHC mass conc (RBC) 33.4 % Normal 32.0-36.0 [facility] Comment on above: Performed By: #### H EMDF, PT, BMP3M, PHOS3, MG3, CK3 #### [address] #### VD25H #### [facility] [address] [place] [address] MCV Entitic volume (RBC) 84.1 fL Normal 80.0-98.0 [facility] Comment on above: Performed By: #### H EMDF, PT, BMP3M, PHOS3, MG3, CK3 #### [address] #### VD25H #### [facility] [address] [place] [place] [address] Platelet mean volume Entitic volume (Bld) 7.9 fL Normal 7.4-10.4 [facility] Comment on above: Performed By: #### H EMDF, PT, BMP3M, PHOS3, MG3, CK3 #### [address] #### VD25H #### [facility] [address] [place] [address] Platelets #/vol (Bld) 301 10*3/uL Normal 140-440 [facility] Comment on above: Performed By: #### H EMDF, PT, BMP3M, PHOS3, MG3, CK3 #### [address] [place], [place] #### VD25H #### [place] [address] [place] [address] RBC #/vol (Bld) 3.49 10*6/uL Low 4.40-5.90 [facility] Comment on above: Performed By: #### H EMDF, PT, BMP3M, PHOS3, MG3, CK3 #### [address] #### VD25H #### [place] [address] [place] [address] WBC #/vol (Bld) 8.3 10*3/uL Normal 3.6-10.7 [facility] Comment on above: Performed By: #### H EMDF, PT, BMP3M, PHOS3, MG3, CK3 #### [address] #### VD25H #### [place] [address] [place] [address] Magnesiumon 08-18-2018 Magnesium mass conc 2.0 mg/dL Normal 1.6-2.3 [facility] Comment on above: Performed By: #### H EMDF, PT, BMP3M, PHOS3, MG3, CK3 #### [address] #### VD25H #### [place] [address] [place] [address] Manual Diffon 08-18-2018 Abs Neutrophile Cnt 5.1 10*3/uL Normal 2.2-8.2 [facility] Comment on above: Performed By: #### H EMDF, PT, BMP3M, PHOS3, MG3, CK3 #### [facility] [address] [place], [place] #### VD25H #### [facility] [address] [place] [address] Bands 3 % Normal 0-3 [facility] Comment on above: Performed By: #### H EMDF, PT, BMP3M, PHOS3, MG3, CK3 #### [address] [place], [place] #### VD25H #### [facility] [address] [place] [address] Eosinophils #/vol (Bld) 0.2 10*3/uL Normal 0.0-0.5 [facility] Comment on above: Performed By: #### H EMDF, PT, BMP3M, PHOS3, MG3, CK3 #### [facility] [address] [place], [place] #### VD25H #### [facility] [address] [place] [address] Eosinophils/100 WBC (Bld) 2 % Normal 1-6 [facility] Comment on above: Performed By: #### H EMDF, PT, BMP3M, PHOS3, MG3, CK3 #### [facility] [address] [place], [place] #### VD25H #### [facility] [address] [place] [address] Lymphocytes #/vol (Bld) 2.1 10*3/uL Normal 1.1-4.5 [facility] Comment on above: Performed By: #### H EMDF, PT, BMP3M, PHOS3, MG3, CK3 #### [facility] [address] [place], [place] #### VD25H #### [facility] [address] [place] [address] Lymphocytes/100 WBC (Bld) 25 % Normal 20-40 [facility] Comment on above: Performed By: #### H EMDF, PT, BMP3M, PHOS3, MG3, CK3 #### [address] [place], [place] #### VD25H #### [facility] [address] [place] [address] Metamyelocytes 1 % Abnormal <1 [facility] Comment on above: Performed By: #### H EMDF, PT, BMP3M, PHOS3, MG3, CK3 #### [address] [place], [place] #### VD25H #### [facility] [address] [place] [address] Monocytes #/vol (Bld) 0.6 10*3/uL Normal 0.2-1.1 [facility] Comment on above: Performed By: #### H EMDF, PT, BMP3M, PHOS3, MG3, CK3 #### [address] #### VD25H #### [facility] [address] [place] [address] Monocytes/100 WBC (Bld) 7 % Normal 2-10 S [facility] Comment on above: Performed By: #### H EMDF, PT, BMP3M, PHOS3, MG3, CK3 #### [address] [address] [place], [place] #### VD25H #### [facility] [address] [place] [address] Myelocytes 1 % Abnormal <1 [facility] Comment on above: Performed By: #### H EMDF, PT, BMP3M, PHOS3, MG3, CK3 #### [address] #### VD25H #### [facility] [address] [place] [address] Protein mass conc 2 % Abnormal <[address] [facility] Comment on above: Performed By: #### H EMDF, PT, BMP3M, PHOS3, MG3, CK3 #### [address] [place], [place] #### VD25H #### [facility] [address] [place] [address] RBC morphology finding Nom (Bld) See Prev Normal [facility] Comment on above: Performed By: #### H EMDF, PT, BMP3M, PHOS3, MG3, CK3 #### [address] [place], [place] #### VD25H #### [facility] [address] [place] [address] Seg Neutrophils 59 % Normal 40-80 [facility] Comment on above: Performed By: #### H EMDF, PT, BMP3M, PHOS3, MG3, CK3 #### [address] #### VD25H #### [facility] [address] [place] [address] Abs Baso Cnt 0.0 10*3/uL Normal 0.0-0.2 [facility] Comment on above: Performed By: #### H EMDF, PT, BMP3M, PHOS3, MG3, CK3 #### [address] #### VD25H #### [facility] [address] [place] [address] Basophils/100 WBC (Bld) 0 % Normal 0-2 [facility] Comment on above: Performed By: #### H EMDF, PT, BMP3M, PHOS3, MG3, CK3 #### [address] #### VD25H #### [facility] [address] [place] [address] Cells counted 100 Normal [facility] Comment on above: Performed By: #### H EMDF, PT, BMP3M, PHOS3, MG3, CK3 #### [address] [address] [place], [place] #### VD25H #### [facility] [address] [place] [address] Phosphoruson 08-18-2018 Phosphate mass conc 4.6 mg/dL High 2.5-4.5 [facility] Comment on above: Performed By: #### H EMDF, PT, BMP3M, PHOS3, MG3, CK3 #### [address] [place], [place] #### VD25H #### [facility] [address] [place] [address] Basic Metabolic Panelon 07-30 Calcium mass conc 7.7 mg/dL Low 8.4-10.[address] [facility] Comment on above: Performed By: #### H EMDF, PT, BMP3M, PHOS3, MG3, CK3 #### [address] [address] [place], [place] #### VD25H #### [place] [address] [place] [address] Anion gap molar conc 7 Normal [facility] Comment on above: Performed By: #### H EMDF, PT, BMP3M, PHOS3, MG3, CK3 #### [place] [address] [address] [facility], [place] #### VD25H #### [facility] [address] [place] [address] CO2 molar conc 25 mmol/L Normal 22-30 [facility] Comment on above: Performed By: #### H EMDF, PT, BMP3M, PHOS3, MG3, CK3 #### [place] [address] [facility], [place] #### VD25H #### [facility] [address] [place] [address] Creatinine mass conc 0.59 mg/dL Normal 0.52-1.25 [facility] Comment on above: Performed By: #### H EMDF, PT, BMP3M, PHOS3, MG3, CK3 #### [address] [place], [place] #### VD25H #### [facility] [address] [place] [address] GFR/1.73 sq M predicted among blacks MDRD vol rate/area (S/P/Bld) mL/min/{1.73_m2} Normal >60 [facility] Comment on above: Performed By: #### H EMDF, PT, BMP3M, PHOS3, MG3, CK3 #### [place] [address] [place], [place] #### VD25H #### [place] [address] [place] [address] GFR/1.73 sq M predicted among non-blacks MDRD vol rate/area (S/P/Bld) mL/min/{1.73_m2} Normal >[address] [facility] Comment on above: Result Comment: Sour ce- MDRD equation with creatinine calibration to IDMS(NKDEP) eGFR not recommended for drug dose adjustment Performed By: #### H EMDF, PT, BMP3M, PHOS3, MG3, CK3 #### [address] #### VD25H #### [place] [address] [place] [address] Glucose mass conc 116 mg/dL High 70-[address] [facility] Comment on above: Performed By: #### H EMDF, PT, BMP3M, PHOS3, MG3, CK3 #### [address] [place], [place] #### VD25H #### [place] [address] [place] [address] Urea nitrogen mass conc 12 mg/dL Normal 7-20 [facility] Comment on above: Performed By: #### H EMDF, PT, BMP3M, PHOS3, MG3, CK3 #### [address] #### VD25H #### [place] [address] [place] [address] Potassium molar conc 3.2 mmol/L Low 3.5-5.1 [facility] Comment on above: Performed By: #### H EMDF, PT, BMP3M, PHOS3, MG3, CK3 #### [facility] [address] [place] [address] #### VD25H #### [facility] [address] [place] [address] Sodium molar conc 138 mmol/L Normal 135-[address] [facility] Comment on above: Performed By: #### H EMDF, PT, BMP3M, PHOS3, MG3, CK3 #### [facility] [address] [place] [address] #### VD25H #### [facility] [address] [place] [address] Chloride molar conc 106 mmol/L Normal 98-107 [facility] Comment on above: Performed By: #### H EMDF, PT, BMP3M, PHOS3, MG3, CK3 #### [facility] [address] [place] [address] #### VD25H #### [facility] [address] [place] [address] CR Chest Portableon 08-18-19 CR Chest Portable Patient Name: KATHYA HOOPER Diagnostic Radiology Exam Date/Time 08/17/2018 17:54:46 EDT Exam CR Chest Portable Ordering Physician SALO DAVIS Accession Number [id number] CPT4 Codes 76379 () Reason For Exam line placement Report INDICATION:Line placement. PORTABLE CHEST: COMPARISON: 08/17/2018. Interval placement of a right-sided PICC line, the tip of which lies in the region of the right atrium. No pneumothorax. Worsening linear atelectasis in the right lung. Persistent opacity at the left base, compatible with fluid, atelectasis and or infiltrates. Enteric tube extends inferior to the left hemidiaphragm. Heart and mediastinal contours are stable. Tracheostomy tube still present. IMPRESSION: Placement of a right-sided PICC line, tip of which lies in the region of the right atrium. Worsening right lung atelectasis. Persistent left lower lung infiltrate/atelectasi s/pleural effusion. Report Dictated on Final Dictated: 08/17/2018 6:05 pm Dictating Physician: MD HANEY LAURA Signed Date and Time: 08/17/2018 6:06 pm Signed by: MD HANEY LAURA Transcribed Date and Time: 08/17/2018 6:05 Normal [facility] CR Chest Portable Patient Name: KATHYA HOOPER Diagnostic Radiology Exam Date/Time 08/17/2018 06:11:03 EDT Exam CR Chest Portable Ordering Physician ETIENNE VELÁSQUEZ KATHYA Costa Accession Number [id number] CPT4 Codes 78839 () Reason For Exam follow left pleural effusion Report Portable chest 08/17/2018: Clinical Information: Dyspnea. Findings: A single AP portable view of the chest was obtained at 601 hours. Comparison was made to the prior study prior day. The tracheostomy tube and Dobbhoff type feeding tube are unchanged. There continues to be increased density behind the heart on the left consistent with left lower lobe atelectasis, effusion or infiltrate. There is layering of a left pleural effusion. The pulmonary vasculature may be at most mildly congested. Report Dictated on Final Dictated: 08/17/2018 7:16 am Dictating Physician: MD JOHNSON RISA Signed Date and Time: 08/17/2018 7:17 am Signed by: MD JOHNSON RISA Transcribed Date and Time: 08/17/2018 7:16 Normal [facility] Ferritinon 08-17-2018 Ferritin mass conc 1100 ng/mL High 18-464 [facility] Comment on above: Performed By: #### H EMDF, PT, BMP3M, PHOS3, MG3, CK3 #### [facility] [address] [place] [address] #### VD25H #### [facility] [address] [place] [address] Folateon 08-17-2018 Folate 15.1 ng/mL Normal 2.8-20.0 [facility] Comment on above: Performed By: #### H EMDF, PT, BMP3M, PHOS3, MG3, CK3 #### [facility] [address] [place], [place] #### VD25H #### [facility] [address] [place] [address] Glucose,Bedsideon 08-17-2018 Glucose mass conc 133 mg/dL High 70-[address] [facility] Comment on above: Result Comment: Test performed by glucose meter. Results may be 10%-15% lower than serum/plasma values. (CLIA ID [id number]) Performed By: #### H EMDF, PT, BMP3M, PHOS3, MG3, CK3 #### [address] #### VD25H #### [facility] [employer] [facility] [address] [place] [address] Hemoglobin A1Con 08-17-2018 Hemoglobin A1c/Hemoglobin.total mass fraction (Bld) 117 mg/dL Normal [facility] Comment on above: Performed By: #### H EMDF, PT, BMP3M, PHOS3, MG3, CK3 #### [address] #### VD25H #### [facility] [address] [place] [address] Hemoglobin A1c/Hemoglobin.total mass fraction (Bld) 5.7 % Normal 4.0-5.7 [facility] Comment on above: Result Comment: --Hg bA1C levels may not be accurate in patients who have renal disease, received recent blood transfusions, are anemic, or who have dyshemoglobinemia. Performed By: #### H EMDF, PT, BMP3M, PHOS3, MG3, CK3 #### [address] #### VD25H #### [facility] [address] [place] [address] Hemogram w/ Autodiffon 08-17 Erythrocyte distribution width Ratio (RBC) 14.3 % Normal 11.5-14.5 [facility] Comment on above: Performed By: #### H EMDF, PT, BMP3M, PHOS3, MG3, CK3 #### [facility] [address] [place], [place] #### VD25H #### [facility] [address] [place] [address] Hematocrit Volume Fraction (Bld) 29.1 % Low 40.0-52.0 [facility] Comment on above: Performed By: #### H EMDF, PT, BMP3M, PHOS3, MG3, CK3 #### [address] #### VD25H #### [facility] [address] [place] [address] Hemoglobin mass conc (Bld) 9.8 g/dL Low 13.0-18.0 [facility] Comment on above: Performed By: #### H EMDF, PT, BMP3M, PHOS3, MG3, CK3 #### [address] #### VD25H #### [facility] [address] [place] [address] MCH Entitic mass (RBC) 28.4 pg Normal 26.0-34.0 [facility] Comment on above: Performed By: #### H EMDF, PT, BMP3M, PHOS3, MG3, CK3 #### [address] [place], [place] #### VD25H #### [facility] [address] [place] [address] MCHC mass conc (RBC) 33.5 % Normal 32.0-36.0 [facility] Comment on above: Performed By: #### H EMDF, PT, BMP3M, PHOS3, MG3, CK3 #### [address] #### VD25H #### [facility] [address] [place] [address] MCV Entitic volume (RBC) 84.7 fL Normal 80.0-98.0 [facility] Comment on above: Performed By: #### H EMDF, PT, BMP3M, PHOS3, MG3, CK3 #### [facility] [address] [place], [place] #### VD25H #### [facility] [address] [place] [address] Platelet mean volume Entitic volume (Bld) 8.1 fL Normal 7.4-10.4 [facility] Comment on above: Performed By: #### H EMDF, PT, BMP3M, PHOS3, MG3, CK3 #### [address] #### VD25H #### [facility] [address] [place] [address] Platelets #/vol (Bld) 281 10*3/uL Normal 140-440 [facility] Comment on above: Performed By: #### H EMDF, PT, BMP3M, PHOS3, MG3, CK3 #### [address] #### VD25H #### [facility] [address] [place] [address] RBC #/vol (Bld) 3.44 10*6/uL Low 4.40-5.[address] [facility] Comment on above: Performed By: #### H EMDF, PT, BMP3M, PHOS3, MG3, CK3 #### [address] #### VD25H #### [facility] [address] [place] [address] WBC #/vol (Bld) 8.3 10*3/uL Normal 3.6-10.7 [facility] Comment on above: Performed By: #### H EMDF, PT, BMP3M, PHOS3, MG3, CK3 #### [address] #### VD25H #### [facility] [address] [place] [address] Hep B Surface Abon 9 Hep B Surface Ab < 8.0 Normal [facility] Comment on above: Result Comment: Inte rpretation: <8.0 Non-Reactive 8.0-11.9 Equivocal >= 12.0 Ab Detected Performed By: #### H EMDF, PT, BMP3M, PHOS3, MG3, CK3 #### [facility] [address] [place], [place] #### VD25H #### [facility] [address] [place] [address] Hep B Surface Agon 9 Hep B Surface Ag NOT DETECTED Normal Not-Detected [facility] Comment on above: Performed By: #### H EMDF, PT, BMP3M, PHOS3, MG3, CK3 #### [address] #### VD25H #### [facility] [address] [place] [address] Hep C Antibodyon 08-17-2018 Hep C Antibody NOT DETECTED Normal Not-Detected [facility] Comment on above: Result Comment: Bharti ents with DETECTED Hepatitis C Ab results should have a new specimen submitted for supplemental testing with a Hepatitis C Quantitative RNA assay (viral load), if clinically indicated. Performed By: #### H EMDF, PT, BMP3M, PHOS3, MG3, CK3 #### [facility] [address] [place], [place] #### VD25H #### [facility] [address] [place] [address] Hepatic Functionon 9 ALP enzyme act/vol 116 U/L Normal 38-126 [facility] Comment on above: Performed By: #### H EMDF, PT, BMP3M, PHOS3, MG3, CK3 #### [address] #### VD25H #### [facility] [address] [place] [address] ALT enzyme act/vol 370 U/L High 13-69 [facility] Comment on above: Performed By: #### H EMDF, PT, BMP3M, PHOS3, MG3, CK3 #### [facility] [address] [place] #### VD25H #### [facility] [address] [place] [address] AST enzyme act/vol 150 U/L High 15-46 [facility] Comment on above: Performed By: #### H EMDF, PT, BMP3M, PHOS3, MG3, CK3 #### [place] [address] [place], [place] #### VD25H #### [facility] [address] [place] [address] Bilirubin mass conc 0.7 mg/dL Normal 0.2-1.3 [facility] Comment on above: Performed By: #### H EMDF, PT, BMP3M, PHOS3, MG3, CK3 #### [place] [address] [place], [place] #### VD25H #### [facility] [address] [place] [address] Bilirubin.direct mass conc 0.0 mg/dL Normal 0.0-0.3 [facility] Comment on above: Performed By: #### H EMDF, PT, BMP3M, PHOS3, MG3, CK3 #### [facility] [address] [place] #### VD25H #### [facility] [address] [place] [address] Protein mass conc 5.4 g/dL Low 6.3-8.2 [facility] Comment on above: Performed By: #### H EMDF, PT, BMP3M, PHOS3, MG3, CK3 #### [place] [place], [place] #### VD25H #### [facility] [address] [place] [address] Albumin mass conc 2.5 g/dL Low 3.5-5.0 [facility] Comment on above: Performed By: #### H EMDF, PT, BMP3M, PHOS3, MG3, CK3 #### [facility] [address] [place], [place] #### VD25H #### [facility] [address] [place] [address] Iron AND TIBCon 08-17-2018 Saturation 14 % Low 15-50 [facility] Comment on above: Performed By: #### H EMDF, PT, BMP3M, PHOS3, MG3, CK3 #### [address] [place] [place], [place] #### VD25H #### [facility] [address] [place] [address] Total Iron Binding Cap. 166 ug/dL Low 261-497 S [facility] Comment on above: Performed By: #### H EMDF, PT, BMP3M, PHOS3, MG3, CK3 #### [place] [address] [place], [place] #### VD25H #### [facility] [address] [place] [address] Iron, Total 23 ug/dL Low 49-181 [facility] Comment on above: Performed By: #### H EMDF, PT, BMP3M, PHOS3, MG3, CK3 #### [facility] [address] [place], [place] #### VD25H #### [facility] [address] [place] [address] Magnesiumon 08-17-2018 Magnesium mass conc 2.0 mg/dL Normal 1.6-2.3 [facility] Comment on above: Performed By: #### H EMDF, PT, BMP3M, PHOS3, MG3, CK3 #### [address] [place] [place], [place] #### VD25H #### [facility] [address] [place] [address] Manual Diffon 08-17-2018 Abs Baso Cnt 0.1 10*3/uL Normal 0.0-0.2 [facility] Comment on above: Performed By: #### H EMDF, PT, BMP3M, PHOS3, MG3, CK3 #### [address] [place], [place] #### VD25H #### [facility] [address] [place] [address] Abs Neutrophile Cnt 5.6 10*3/uL Normal 2.2-8.2 [facility] Comment on above: Performed By: #### H EMDF, PT, BMP3M, PHOS3, MG3, CK3 #### [address] #### VD25H #### [facility] [address] [place] [address] Anisocytosis Ql (Bld) Slight Normal [facility] Comment on above: Performed By: #### H EMDF, PT, BMP3M, PHOS3, MG3, CK3 #### [address] #### VD25H #### [facility] [address] [place] [address] Bands 9 % High 0-3 [facility] Comment on above: Performed By: #### H EMDF, PT, BMP3M, PHOS3, MG3, CK3 #### [address] #### VD25H #### [facility] [address] [place] [address] Basophils/100 WBC (Bld) 1 % Normal 0-2 [facility] Comment on above: Performed By: #### H EMDF, PT, BMP3M, PHOS3, MG3, CK3 #### [address] #### VD25H #### [facility] [address] [place] [address] Eosinophils #/vol (Bld) 0.2 10*3/uL Normal 0.0-0.5 [facility] Comment on above: Performed By: #### H EMDF, PT, BMP3M, PHOS3, MG3, CK3 #### [facility] [address] [place] #### VD25H #### [facility] [address] [place] [address] Eosinophils/100 WBC (Bld) 3 % Normal 1-6 [facility] Comment on above: Performed By: #### H EMDF, PT, BMP3M, PHOS3, MG3, CK3 #### [address] [place] #### VD25H #### [facility] [address] [place] [address] Lymphocytes #/vol (Bld) 1.5 10*3/uL Normal 1.1-4.5 [facility] Comment on above: Performed By: #### H EMDF, PT, BMP3M, PHOS3, MG3, CK3 #### [address] #### VD25H #### [facility] [address] [place] [address] Lymphocytes/100 WBC (Bld) 18 % Low 20-40 [facility] Comment on above: Performed By: #### H EMDF, PT, BMP3M, PHOS3, MG3, CK3 #### [facility] [address] [place] #### VD25H #### [facility] [address] [place] [address] Monocytes #/vol (Bld) 0.4 10*3/uL Normal 0.2-1.1 [facility] Comment on above: Performed By: #### H EMDF, PT, BMP3M, PHOS3, MG3, CK3 #### [address] [place], [place] #### VD25H #### [facility] [address] [place] [address] Monocytes/100 WBC (Bld) 5 % Normal 2-10 [facility] Comment on above: Performed By: #### H EMDF, PT, BMP3M, PHOS3, MG3, CK3 #### [facility] [address] [place] #### VD25H #### [facility] [address] [place] [address] Myelocytes 5 % Abnormal <1 [facility] Comment on above: Performed By: #### H EMDF, PT, BMP3M, PHOS3, MG3, CK3 #### [address] [place], [place] #### VD25H #### [facility] [address] [place] [address] Polychromasia Slight Normal [facility] Comment on above: Performed By: #### H EMDF, PT, BMP3M, PHOS3, MG3, CK3 #### [address] [place], [place] #### VD25H #### [facility] [address] [place] [address] RBC morphology finding Nom (Bld) ABNORMAL Normal [facility] Comment on above: Performed By: #### H EMDF, PT, BMP3M, PHOS3, MG3, CK3 #### [address] #### VD25H #### [facility] [address] [place] [address] Seg Neutrophils 59 % Normal 40-80 [facility] Comment on above: Performed By: #### H EMDF, PT, BMP3M, PHOS3, MG3, CK3 #### [address] #### VD25H #### [facility] [address] [place] [address] Toxic Granulation Slight Normal [facility] Comment on above: Performed By: #### H EMDF, PT, BMP3M, PHOS3, MG3, CK3 #### [address] [place], [place] #### VD25H #### [facility] [address] [place] [address] Cells counted 100 Normal [facility] Comment on above: Performed By: #### H EMDF, PT, BMP3M, PHOS3, MG3, CK3 #### [address] [place] [place] #### VD25H #### [facility] [address] [place] [address] Phosphoruson 08-17-2018 Phosphate mass conc 3.9 mg/dL Normal 2.5-4.5 [facility] Comment on above: Performed By: #### H EMDF, PT, BMP3M, PHOS3, MG3, CK3 #### [address] [place] #### VD25H #### [facility] [address] [place] [address] Triglycerideon 08-17-2018 Triglyceride mass conc 104 mg/dL Normal <150 [facility] Comment on above: Performed By: #### H EMDF, PT, BMP3M, PHOS3, MG3, CK3 #### [address] [place] [place], [place] #### VD25H #### [facility] [address] [place] [address] Vitamin B12on 08-17-2018 Cobalamin (Vitamin B12) mass conc 615 pg/mL Normal 239-931 [facility] Comment on above: Performed By: #### H EMDF, PT, BMP3M, PHOS3, MG3, CK3 #### [address] #### VD25H #### [facility] [address] [place] [address] Albumin, Serumon 08-16-2018 Albumin mass conc 2.6 g/dL Low 3.5-5.0 [facility] Comment on above: Performed By: #### H EMDF, PT, BMP3M, PHOS3, MG3, CK3 #### [facility] [address] [place] [address] #### VD25H #### [facility] [address] [place] [address] CR Abdomen APon 08-16-2018 CR Abdomen AP Patient Name: KATHYA HOOPER Diagnostic Radiology Exam Date/Time 08/16/2018 10:17:24 EDT Exam CR Abdomen AP Ordering Physician JOEY CABALLERO Accession Number [id number] CPT4 Codes 00711 () Reason For Exam dobhoff placement Report ABDOMEN, Single View: INDICATION: Dobbhoff tube placement COMPARISON: None. A single supine view of the abdomen was obtained at 1009 hours. The bowel gas pattern is satisfactory. There are no obvious findings to suggest pneumoperitoneum. No abnormal calcifications are identified. . Dobbhoff tube is identified with the distal portion overlying the gastric air bubble. There is no appreciable mass effect. Review of the osseous structures arthritic changes of the spine are present. IMPRESSION: No acute abdominal process. A Dobbhoff tube is present with the tip overlying the gastric air bubble. Report Dictated on Final Dictated: 08/16/2018 12:33 pm Dictating Physician: DO FUCHS ALFRED Signed Date and Time: 08/16/2018 12:34 pm Signed by: DO FUCHS ALFRED Transcribed Date and Time: 08/16/2018 12:33 Normal [facility] CR Chest Portableon 08-17-19 19 CR Chest Portable Patient Name: KATHYA HOOPER Diagnostic Radiology Exam Date/Time 08/16/2018 10:17:24 EDT Exam CR Chest Portable Ordering Physician JOEY CABALLERO Accession Number [id number] CPT4 Codes 39928 () Reason For Exam dyspnea Report PORTABLE CHEST: INDICATION: Dyspnea COMPARISON: 07/30/2018 Obtained at 1008 hours. A single portable AP radiograph of the chest was obtained with a low-level of inspiration. The heart is normal in size. The mediastinal silhouette is normal. There is a layering left effusion. The right lung is relatively clear. There is no pleural thickening. Arthritic changes of the spine and shoulders are present. The tracheostomy catheter is unchanged. The PICC has been removed. A small bore NG tube is now present. The distal portion of the tube is not included on the examination. IMPRESSION: Low inspiration chest. Layering left pleural effusion. Report Dictated on Final Dictated: 08/16/2018 12:31 pm Dictating Physician: DO FUCHS ALFRED Signed Date and Time: 08/16/2018 12:33 pm Signed by: DO FUCHS ALFRED Transcribed Date and Time: 08/16/2018 12:31 Normal [facility] Comp Panel with Mg Reflexon 08-16-2018 Calcium mass conc 7.8 mg/dL Low 8.4-10.4 [facility] Comment on above: Performed By: #### H EMDF, PT, BMP3M, PHOS3, MG3, CK3 #### [facility] [address] [place], [place] #### VD25H #### [facility] [address] [place] [address] Glucose mass conc 114 mg/dL High 70-100 [facility] Comment on above: Performed By: #### H EMDF, PT, BMP3M, PHOS3, MG3, CK3 #### [address] #### VD25H #### [facility] [address] [place] [address] ALP enzyme act/vol 114 U/L Normal 38-126 [facility] Comment on above: Performed By: #### H EMDF, PT, BMP3M, PHOS3, MG3, CK3 #### [address] #### VD25H #### [facility] [address] [place] [address] ALT enzyme act/vol 539 U/L High 13-69 [facility] Comment on above: Performed By: #### H EMDF, PT, BMP3M, PHOS3, MG3, CK3 #### [address] [place], [place] #### VD25H #### [facility] [address] [place] [address] Anion gap molar conc 4 Normal [facility] Comment on above: Performed By: #### H EMDF, PT, BMP3M, PHOS3, MG3, CK3 #### [address] [place], [place] #### VD25H #### [facility] [address] [place] [address] AST enzyme act/vol 460 U/L High 15-46 [facility] Comment on above: Performed By: #### H EMDF, PT, BMP3M, PHOS3, MG3, CK3 #### [address] #### VD25H #### [facility] [address] [place] [address] Bilirubin mass conc 0.7 mg/dL Normal 0.2-1.3 [facility] Comment on above: Performed By: #### H EMDF, PT, BMP3M, PHOS3, MG3, CK3 #### [address] [address] [place], [place] #### VD25H #### [facility] [address] [place] [address] CO2 molar conc 25 mmol/L Normal 22-30 [facility] Comment on above: Performed By: #### H EMDF, PT, BMP3M, PHOS3, MG3, CK3 #### [address] #### VD25H #### [facility] [address] [place] [address] Creatinine mass conc 0.71 mg/dL Normal 0.52-1.25 [facility] Comment on above: Performed By: #### H EMDF, PT, BMP3M, PHOS3, MG3, CK3 #### [facility] [address] [place], [place] #### VD25H #### [facility] [address] [place] [address] GFR/1.73 sq M predicted among blacks MDRD vol rate/area (S/P/Bld) mL/min/{1.73_m2} Normal >60 [facility] Comment on above: Performed By: #### H EMDF, PT, BMP3M, PHOS3, MG3, CK3 #### [address] [place], [place] #### VD25H #### [facility] [address] [place] [address] GFR/1.73 sq M predicted among non-blacks MDRD vol rate/area (S/P/Bld) mL/min/{1.73_m2} Normal >[address] [facility] Comment on above: Result Comment: Sour ce- MDRD equation with creatinine calibration to IDMS(NKDEP) eGFR not recommended for drug dose adjustment Performed By: #### H EMDF, PT, BMP3M, PHOS3, MG3, CK3 #### [address] #### VD25H #### [facility] [address] [place] [address] Protein mass conc 5.1 g/dL Low 6.3-8.[address] [facility] Comment on above: Performed By: #### H EMDF, PT, BMP3M, PHOS3, MG3, CK3 #### [address] [place], [place] #### VD25H #### [facility] [address] [place] [address] Urea nitrogen mass conc 22 mg/dL High 7-20 S [facility] Comment on above: Performed By: #### H EMDF, PT, BMP3M, PHOS3, MG3, CK3 #### [address] [address] [place], [place] #### VD25H #### [facility] [address] [place] [address] Chloride molar conc 102 mmol/L Normal 98-107 [facility] Comment on above: Performed By: #### H EMDF, PT, BMP3M, PHOS3, MG3, CK3 #### [address] [place], [place] #### VD25H #### [facility] [address] [place] [address] Potassium molar conc 3.1 mmol/L Low 3.5-5.1 [facility] Comment on above: Performed By: #### H EMDF, PT, BMP3M, PHOS3, MG3, CK3 #### [address] #### VD25H #### [facility] [address] [place] [address] Sodium molar conc 131 mmol/L Low 135-[address] [facility] Comment on above: Performed By: #### H EMDF, PT, BMP3M, PHOS3, MG3, CK3 #### [address] #### VD25H #### [facility] [address] [place] [address] Albumin mass conc 2.4 g/dL Low 3.5-5.[address] [facility] Comment on above: Performed By: #### H EMDF, PT, BMP3M, PHOS3, MG3, CK3 #### [address] [place], [place] #### VD25H #### [facility] [address] [place] [address] Glucose,Bedsideon 08-16-2018 Glucose mass conc 100 mg/dL Normal 70-[address] [facility] Comment on above: Result Comment: Test performed by glucose meter. Results may be 10%-15% lower than serum/plasma values. (CLIA ID [id number]) Performed By: #### H EMDF, PT, BMP3M, PHOS3, MG3, CK3 #### [facility] [address] [place] [address] #### VD25H #### [facility] [address] [place] [place] [address] Glucose mass conc 98 mg/dL Normal 70-100 [facility] Comment on above: Result Comment: Test performed by glucose meter. Results may be 10%-15% lower than serum/plasma values. (CLIA ID [id number]) Performed By: #### H EMDF, PT, BMP3M, PHOS3, MG3, CK3 #### [facility] [address] [place] [address] #### VD25H #### [facility] [address] [place] [facility] [place] [address] Glucose mass conc 110 mg/dL High 70-100 [facility] Comment on above: Result Comment: Test performed by glucose meter. Results may be 10%-15% lower than serum/plasma values. (CLIA ID [id number]) Performed By: #### H EMDF, PT, BMP3M, PHOS3, MG3, CK3 #### [facility] [address] [place] [address] #### VD25H #### [facility] [address] [place] [address] Glucose mass conc 113 mg/dL High 70-100 [facility] Comment on above: Result Comment: Test performed by glucose meter. Results may be 10%-15% lower than serum/plasma values. (CLIA ID [id number]) Performed By: #### H EMDF, PT, BMP3M, PHOS3, MG3, CK3 #### [facility] [address] [place] [address] #### VD25H #### [facility] [address] [place] [facility] [place] [address] Glucose mass conc 126 mg/dL High 70-100 [facility] Comment on above: Result Comment: Test performed by glucose meter. Results may be 10%-15% lower than serum/plasma values. (CLIA ID [id number]) Performed By: #### H EMDF, PT, BMP3M, PHOS3, MG3, CK3 #### [facility] [address] [place], [place] #### VD25H #### [facility] [address] [place] [address] Hemogram w/ Autodiffon 08-16 Abs Baso Cnt 0.0 10*3/uL Normal 0.0-0.2 [facility] Comment on above: Performed By: #### H EMDF, PT, BMP3M, PHOS3, MG3, CK3 #### [address] #### VD25H #### [facility] [address] [place] [address] Abs Neutrophile Cnt 7.7 10*3/uL High 1.8-7.0 [facility] Comment on above: Performed By: #### H EMDF, PT, BMP3M, PHOS3, MG3, CK3 #### [address] #### VD25H #### [facility] [address] [place] [address] Basophils/100 WBC (Bld) 0.5 % Normal 0.0-2.0 [facility] Comment on above: Performed By: #### H EMDF, PT, BMP3M, PHOS3, MG3, CK3 #### [address] #### VD25H #### [facility] [address] [place] [address] Eosinophils #/vol (Bld) 0.1 10*3/uL Normal 0.0-0.5 [facility] Comment on above: Performed By: #### H EMDF, PT, BMP3M, PHOS3, MG3, CK3 #### [address] #### VD25H #### [facility] [address] [place] [address] Eosinophils/100 WBC (Bld) 1.5 % Normal 1.0-6.0 [facility] Comment on above: Performed By: #### H EMDF, PT, BMP3M, PHOS3, MG3, CK3 #### [facility] [address] [place] #### VD25H #### [facility] [address] [place] [address] Erythrocyte distribution width Ratio (RBC) 14.4 % Normal 11.5-14.5 [facility] Comment on above: Performed By: #### H EMDF, PT, BMP3M, PHOS3, MG3, CK3 #### [address] #### VD25H #### [facility] [address] [place] [address] Granulocytes/100 WBC (Bld) 79.7 % Normal 40.0-80.0 [facility] Comment on above: Performed By: #### H EMDF, PT, BMP3M, PHOS3, MG3, CK3 #### [address] #### VD25H #### [facility] [address] [place] [address] Hematocrit Volume Fraction (Bld) 27.1 % Low 40.0-52.0 [facility] Comment on above: Performed By: #### H EMDF, PT, BMP3M, PHOS3, MG3, CK3 #### [address] #### VD25H #### [facility] [address] [place] [address] Hemoglobin mass conc (Bld) 9.2 g/dL Low 13.0-18.0 [facility] Comment on above: Performed By: #### H EMDF, PT, BMP3M, PHOS3, MG3, CK3 #### [address] #### VD25H #### [facility] [address] [place] [address] Lymphocytes #/vol (Bld) 1.0 10*3/uL Normal 1.0-4.3 [facility] Comment on above: Performed By: #### H EMDF, PT, BMP3M, PHOS3, MG3, CK3 #### [place] [address] [place], [place] #### VD25H #### [facility] [address] [place] [address] Lymphocytes/100 WBC (Bld) 10.0 % Low 20.0-40.0 [facility] Comment on above: Performed By: #### H EMDF, PT, BMP3M, PHOS3, MG3, CK3 #### [address] #### VD25H #### [place] [address] [place] [address] MCH Entitic mass (RBC) 28.5 pg Normal 26.0-34.0 [facility] Comment on above: Performed By: #### H EMDF, PT, BMP3M, PHOS3, MG3, CK3 #### [address] #### VD25H #### [place] [address] [place] [address] MCHC mass conc (RBC) 33.8 % Normal 32.0-36.0 [facility] Comment on above: Performed By: #### H EMDF, PT, BMP3M, PHOS3, MG3, CK3 #### [address] #### VD25H #### [facility] [address] [address] MCV Entitic volume (RBC) 84.4 fL Normal 80.0-98.0 [facility] Comment on above: Performed By: #### H EMDF, PT, BMP3M, PHOS3, MG3, CK3 #### [address] #### VD25H #### [facility] [address] [place] [address] Monocytes #/vol (Bld) 0.8 10*3/uL Normal 0.0-0.8 [facility] Comment on above: Performed By: #### H EMDF, PT, BMP3M, PHOS3, MG3, CK3 #### [address] #### VD25H #### [facility] [address] [place] [address] Monocytes/100 WBC (Bld) 8.3 % Normal 2.0-10.0 [facility] Comment on above: Performed By: #### H EMDF, PT, BMP3M, PHOS3, MG3, CK3 #### [address] #### VD25H #### [place] [address] [place] [address] Platelet mean volume Entitic volume (Bld) 8.4 fL Normal 7.4-10.4 [facility] Comment on above: Performed By: #### H EMDF, PT, BMP3M, PHOS3, MG3, CK3 #### [address] #### VD25H #### [place] [address] [place] [address] Platelets #/vol (Bld) 245 10*3/uL Normal 140-440 [facility] Comment on above: Performed By: #### H EMDF, PT, BMP3M, PHOS3, MG3, CK3 #### [address] #### VD25H #### [facility] [address] [place] [address] RBC #/vol (Bld) 3.21 10*6/uL Low 4.40-5.[address] [facility] Comment on above: Performed By: #### H EMDF, PT, BMP3M, PHOS3, MG3, CK3 #### [address] #### VD25H #### [facility] [address] [place] [address] WBC #/vol (Bld) 9.7 10*3/uL Normal 3.6-10.7 [facility] Comment on above: Performed By: #### H EMDF, PT, BMP3M, PHOS3, MG3, CK3 #### [address] #### VD25H #### [facility] [address] [place] [address] Magnesiumon 08-16-2018 Magnesium mass conc 2.1 mg/dL Normal 1.6-2.3 [facility] Comment on above: Performed By: #### H EMDF, PT, BMP3M, PHOS3, MG3, CK3 #### [address] #### VD25H #### [facility] [address] [place] [address] Phosphoruson 08-16-2018 Phosphate mass conc 4.4 mg/dL Normal 2.5-4.5 [facility] Comment on above: Performed By: #### H EMDF, PT, BMP3M, PHOS3, MG3, CK3 #### [address] #### VD25H #### [facility] [address] [place] [address] Potassiumon 08-16-2018 Potassium molar conc 3.5 mmol/L Normal 3.5-5.1 [facility] Comment on above: Performed By: #### H EMDF, PT, BMP3M, PHOS3, MG3, CK3 #### [address] #### VD25H #### [facility] [address] [place] [address] Procalcitoninon 08-16-2018 Protein mass conc 3.10 ng/mL Abnormal <0.[address] [facility] Comment on above: Performed By: #### H EMDF, PT, BMP3M, PHOS3, MG3, CK3 #### [address] #### VD25H #### [facility] [address] [place] [address] Prothrombin Timeon 9 INR Coag RelTime (PPP) 1.1 Normal 0.9-1.1 [facility] Comment on above: Result Comment: Yefri mmended Anticoagulant Therapy: SEE BELOW ----- INR of 2.0 - 3.0 : - Prophylaxis of Venous Thrombosis (high-risk surgery) - Treatment of Venous Thrombosis - Treatment of Pulmonary Embolism (Includes tissue heart valves, Acute Myocardial Infarction to prevent systemic embolism, Valvular Heart Disease, and Atrial Fibrillation) ----- INR of 2.5 - 3.5 : - Mechanical Prosthetic Valves (high risk) - If oral anticoagulant therapy is used to prevent Myocardial Infarction Performed By: #### H EMDF, PT, BMP3M, PHOS3, MG3, CK3 #### [address] #### VD25H #### [facility] [address] [place] [address] Prothrombin time (PT) Coag time (PPP) 11.8 s Normal 9.0-12.0 [facility] Comment on above: Result Comment: . Performed By: #### H EMDF, PT, BMP3M, PHOS3, MG3, CK3 #### [address] #### VD25H #### [facility] [address] [place] [address] US Abdomen Limitedon 019 US Abdomen Limited Patient Name: KATHYA HOOPER Ultrasound Exam Date/Time 08/16/2018 19:12:00 EDT Exam US Abdomen Limited Ordering Physician [id number] ANNA Accession Number [id number] CPT4 Codes 13849 () Reason For Exam elevated transaminases Report HISTORY: Elevated transaminases. Multiple sonographic images of the gallbladder and right upper quadrant of the abdomen were obtained. Comparisons available: CT abdomen pelvis from 07/20/2018 FINDINGS: The gallbladder is normal in appearance. No gallstones, wall thickening, or surrounding fluid is seen. Sonographic Barba's sign is negative. The left hepatic lobe is obscured by bowel gas due to its configuration and the presence of interposed gas-filled which is apparent on the comparison CT. Parenchymal echotexture in the right lobe is normal. No focal hepatic lesions are seen. There is no intrahepatic or extrahepatic biliary dilatation. The common bile duct is normal, measuring 3 mm. The pancreas is not adequately visualized. Survey views of the right kidney are unremarkable. There is no hydronephrosis. IMPRESSION: Somewhat limited exam due to shadowing bowel gas, demonstrating no significant abnormality in the right upper quadrant of the abdomen. Report Dictated on Final Dictated: 08/16/2018 7:26 pm Dictating Physician: MD SIMMONS KERISTEN L Signed Date and Time: 08/16/2018 7:29 pm Signed by: MD SIMMONS KERISTEN L Transcribed Date and Time: 08/16/2018 7:26 Normal [facility] Glucose,Bedsideon 08-15-2018 Glucose mass conc 98 mg/dL Normal 70-[address] [facility] Comment on above: Result Comment: Test performed by glucose meter. Results may be 10%-15% lower than serum/plasma values. (CLIA ID [id number]) Performed By: #### H EMDF, PT, BMP3M, PHOS3, MG3, CK3 #### [facility] [address] [place] [address] #### VD25H #### [facility] [address] [place] [address] Procalcitoninon 08-15-2018 Interpretation See Below Normal [facility] Comment on above: Result Comment: PCT <0.50 = Low risk of severe sepsis and/or septic shock. PCT >2.00 = High risk of severe sepsis and/or septic shock. Performed By: #### H EMDF, PT, BMP3M, PHOS3, MG3, CK3 #### [address] #### VD25H #### [facility] [address] [place] [address] CULTURE FUNGUSon 08-13-2018 CULTURE FUNGUS CULTURE FUNGUS --> Status: F No fungus isolated after 21 days. Normal [facility] Comment on above: Order Comment: Speci men Source Comment:Body Fluid Performed By: #### H EMDF, PT, BMP3M, PHOS3, MG3, CK3 #### [address] [place], [place] #### VD25H #### [facility] [address] [place] [address] Hemogram w/ Autodiffon 08-01 Abs Baso Cnt 0.2 10*3/uL Normal 0.0-0.2 [facility] Comment on above: Performed By: #### H EMDF, PT, BMP3M, PHOS3, MG3, CK3 #### [address] [place] #### VD25H #### [facility] [address] [place] [address] Abs Neutrophile Cnt 14.3 10*3/uL High 1.8-7.0 [facility] Comment on above: Performed By: #### H EMDF, PT, BMP3M, PHOS3, MG3, CK3 #### [address] #### VD25H #### [facility] [address] [place] [address] Basophils/100 WBC (Bld) 1.0 % Normal 0.0-2.0 S [facility] Comment on above: Performed By: #### H EMDF, PT, BMP3M, PHOS3, MG3, CK3 #### [address] #### VD25H #### [facility] [address] [place] [address] Eosinophils #/vol (Bld) 0.4 10*3/uL Normal 0.0-0.5 [facility] Comment on above: Performed By: #### H EMDF, PT, BMP3M, PHOS3, MG3, CK3 #### [facility] [address] [place] #### VD25H #### [facility] [address] [place] [address] Eosinophils/100 WBC (Bld) 2.3 % Normal 1.0-6.0 [facility] Comment on above: Performed By: #### H EMDF, PT, BMP3M, PHOS3, MG3, CK3 #### [address] #### VD25H #### [facility] [address] [place] [address] Erythrocyte distribution width Ratio (RBC) 13.7 % Normal 11.5-14.5 [facility] Comment on above: Performed By: #### H EMDF, PT, BMP3M, PHOS3, MG3, CK3 #### [address] #### VD25H #### [facility] [address] [place] [address] Granulocytes/100 WBC (Bld) 82.1 % High 40.0-80.0 [facility] Comment on above: Performed By: #### H EMDF, PT, BMP3M, PHOS3, MG3, CK3 #### [address] [place] [place], [place] #### VD25H #### [facility] [address] [place] [address] Hematocrit Volume Fraction (Bld) 31.2 % Low 40.0-52.0 [facility] Comment on above: Performed By: #### H EMDF, PT, BMP3M, PHOS3, MG3, CK3 #### [address] #### VD25H #### [facility] [address] [place] [address] Hemoglobin mass conc (Bld) 10.5 g/dL Low 13.0-18.0 [facility] Comment on above: Performed By: #### H EMDF, PT, BMP3M, PHOS3, MG3, CK3 #### [facility] [address] [place] #### VD25H #### [facility] [address] [place] [address] Lymphocytes #/vol (Bld) 1.6 10*3/uL Normal 1.0-4.3 [facility] Comment on above: Performed By: #### H EMDF, PT, BMP3M, PHOS3, MG3, CK3 #### [address] #### VD25H #### [facility] [address] [place] [address] Lymphocytes/100 WBC (Bld) 9.1 % Low 20.0-40.0 [facility] Comment on above: Performed By: #### H EMDF, PT, BMP3M, PHOS3, MG3, CK3 #### [address] #### VD25H #### [facility] [address] [place] [address] MCH Entitic mass (RBC) 28.9 pg Normal 26.0-34.0 [facility] Comment on above: Performed By: #### H EMDF, PT, BMP3M, PHOS3, MG3, CK3 #### [address] [place], [place] #### VD25H #### [facility] [address] [place] [address] MCHC mass conc (RBC) 33.7 % Normal 32.0-36.0 [facility] Comment on above: Performed By: #### H EMDF, PT, BMP3M, PHOS3, MG3, CK3 #### [address] #### VD25H #### [facility] [address] [place] [address] MCV Entitic volume (RBC) 85.5 fL Normal 80.0-98.0 [facility] Comment on above: Performed By: #### H EMDF, PT, BMP3M, PHOS3, MG3, CK3 #### [address] [place] #### VD25H #### [facility] [address] [place] [address] Monocytes #/vol (Bld) 1.0 10*3/uL High 0.0-0.8 [facility] Comment on above: Performed By: #### H EMDF, PT, BMP3M, PHOS3, MG3, CK3 #### [address] #### VD25H #### [facility] [address] [place] [address] Monocytes/100 WBC (Bld) 5.5 % Normal 2.0-10.0 [facility] Comment on above: Performed By: #### H EMDF, PT, BMP3M, PHOS3, MG3, CK3 #### [address] #### VD25H #### [facility] [address] [place] [address] Platelet mean volume Entitic volume (Bld) 8.0 fL Normal 7.4-10.4 [facility] Comment on above: Performed By: #### H EMDF, PT, BMP3M, PHOS3, MG3, CK3 #### [address] #### VD25H #### [facility] [address] [place] [address] Platelets #/vol (Bld) 425 10*3/uL Normal 140-440 [facility] Comment on above: Performed By: #### H EMDF, PT, BMP3M, PHOS3, MG3, CK3 #### [address] #### VD25H #### [facility] [address] [place] [address] RBC #/vol (Bld) 3.65 10*6/uL Low 4.40-5.90 [facility] Comment on above: Performed By: #### H EMDF, PT, BMP3M, PHOS3, MG3, CK3 #### [address] #### VD25H #### [facility] [address] [place] [address] WBC #/vol (Bld) 17.4 10*3/uL High 3.6-10.7 [facility] Comment on above: Performed By: #### H EMDF, PT, BMP3M, PHOS3, MG3, CK3 #### [address] #### VD25H #### [facility] [address] [place] [address] Basic Metabolic Panelon 04-0 Calcium mass conc 8.3 mg/dL Low 8.4-10.4 [facility] Comment on above: Performed By: #### H EMDF, PT, BMP3M, PHOS3, MG3, CK3 #### [address] #### VD25H #### [facility] [address] [place] [address] Glucose mass conc 114 mg/dL High 70-100 [facility] Comment on above: Performed By: #### H EMDF, PT, BMP3M, PHOS3, MG3, CK3 #### [address] #### VD25H #### [facility] [address] [place] [address] Anion gap molar conc 10 Normal [facility] Comment on above: Performed By: #### H EMDF, PT, BMP3M, PHOS3, MG3, CK3 #### [address] [place] [place], [place] #### VD25H #### [facility] [address] [place] [address] CO2 molar conc 34 mmol/L High 22-30 [facility] Comment on above: Performed By: #### H EMDF, PT, BMP3M, PHOS3, MG3, CK3 #### [address] [place] #### VD25H #### [facility] [address] [place] [address] Creatinine mass conc 0.52 mg/dL Normal 0.52-1.25 [facility] Comment on above: Performed By: #### H EMDF, PT, BMP3M, PHOS3, MG3, CK3 #### [address] #### VD25H #### [place] [address] [place] [address] GFR/1.73 sq M predicted among blacks MDRD vol rate/area (S/P/Bld) mL/min/{1.73_m2} Normal >60 [facility] Comment on above: Performed By: #### H EMDF, PT, BMP3M, PHOS3, MG3, CK3 #### [address] #### VD25H #### [facility] [address] [place] [address] GFR/1.73 sq M predicted among non-blacks MDRD vol rate/area (S/P/Bld) mL/min/{1.73_m2} Normal >[address] [facility] Comment on above: Result Comment: Sour ce- MDRD equation with creatinine calibration to IDMS(NKDEP) eGFR not recommended for drug dose adjustment Performed By: #### H EMDF, PT, BMP3M, PHOS3, MG3, CK3 #### [address] [place] [address] [place] #### VD25H #### [facility] [address] [place] [address] Urea nitrogen mass conc 23 mg/dL High 7-20 [facility] Comment on above: Performed By: #### H EMDF, PT, BMP3M, PHOS3, MG3, CK3 #### [facility] [address] [place] #### VD25H #### [facility] [address] [place] [address] Chloride molar conc 95 mmol/L Low 98-107 [facility] Comment on above: Performed By: #### H EMDF, PT, BMP3M, PHOS3, MG3, CK3 #### [address] [place] #### VD25H #### [facility] [address] [place] [address] Potassium molar conc 3.7 mmol/L Normal 3.5-5.1 [facility] Comment on above: Performed By: #### H EMDF, PT, BMP3M, PHOS3, MG3, CK3 #### [address] [place] #### VD25H #### [facility] [address] [place] [address] Sodium molar conc 139 mmol/L Normal 135-[address] [facility] Comment on above: Performed By: #### H EMDF, PT, BMP3M, PHOS3, MG3, CK3 #### [address] [place] #### VD25H #### [facility] [address] [place] [address] Hemogram w/ Autodiffon 07-31 Abs Baso Cnt 0.2 10*3/uL Normal 0.0-0.2 [facility] Comment on above: Performed By: #### H EMDF, PT, BMP3M, PHOS3, MG3, CK3 #### [address] [place] [place] #### VD25H #### [facility] [address] [place] [address] Abs Neutrophile Cnt 13.4 10*3/uL High 1.8-7.0 [facility] Comment on above: Performed By: #### H EMDF, PT, BMP3M, PHOS3, MG3, CK3 #### [address] [place], [place] #### VD25H #### [facility] [address] [place] [address] Basophils/100 WBC (Bld) 1.0 % Normal 0.0-2.0 [facility] Comment on above: Performed By: #### H EMDF, PT, BMP3M, PHOS3, MG3, CK3 #### [address] #### VD25H #### [facility] [address] [place] [address] Eosinophils #/vol (Bld) 0.5 10*3/uL Normal 0.0-0.5 [facility] Comment on above: Performed By: #### H EMDF, PT, BMP3M, PHOS3, MG3, CK3 #### [address] #### VD25H #### [facility] [address] [place] [address] Eosinophils/100 WBC (Bld) 3.1 % Normal 1.0-6.0 [facility] Comment on above: Performed By: #### H EMDF, PT, BMP3M, PHOS3, MG3, CK3 #### [address] #### VD25H #### [facility] [address] [place] [address] Erythrocyte distribution width Ratio (RBC) 14.0 % Normal 11.5-14.5 [facility] Comment on above: Performed By: #### H EMDF, PT, BMP3M, PHOS3, MG3, CK3 #### [address] #### VD25H #### [facility] [address] [place] [address] Granulocytes/100 WBC (Bld) 80.6 % High 40.0-80.0 [facility] Comment on above: Performed By: #### H EMDF, PT, BMP3M, PHOS3, MG3, CK3 #### [address] #### VD25H #### [facility] [address] [place] [address] Hematocrit Volume Fraction (Bld) 32.3 % Low 40.0-52.0 [facility] Comment on above: Performed By: #### H EMDF, PT, BMP3M, PHOS3, MG3, CK3 #### [address] #### VD25H #### [facility] [address] [place] [address] Hemoglobin mass conc (Bld) 10.8 g/dL Low 13.0-18.0 [facility] Comment on above: Performed By: #### H EMDF, PT, BMP3M, PHOS3, MG3, CK3 #### [address] #### VD25H #### [facility] [address] [place] [address] Lymphocytes #/vol (Bld) 1.6 10*3/uL Normal 1.0-4.3 [facility] Comment on above: Performed By: #### H EMDF, PT, BMP3M, PHOS3, MG3, CK3 #### [address] #### VD25H #### [facility] [address] [place] [address] Lymphocytes/100 WBC (Bld) 9.8 % Low 20.0-40.0 [facility] Comment on above: Performed By: #### H EMDF, PT, BMP3M, PHOS3, MG3, CK3 #### [address], [place] #### VD25H #### [facility] [address] [place] [address] MCH Entitic mass (RBC) 28.9 pg Normal 26.0-34.0 [facility] Comment on above: Performed By: #### H EMDF, PT, BMP3M, PHOS3, MG3, CK3 #### [address] [place] [place] #### VD25H #### [facility] [address] [place] [address] MCHC mass conc (RBC) 33.6 % Normal 32.0-36.0 [facility] Comment on above: Performed By: #### H EMDF, PT, BMP3M, PHOS3, MG3, CK3 #### [address] #### VD25H #### [facility] [address] [place] [address] MCV Entitic volume (RBC) 86.1 fL Normal 80.0-98.0 [facility] Comment on above: Performed By: #### H EMDF, PT, BMP3M, PHOS3, MG3, CK3 #### [address] [place], [place] #### VD25H #### [facility] [address] [place] [address] Monocytes #/vol (Bld) 0.9 10*3/uL High 0.0-0.8 [facility] Comment on above: Performed By: #### H EMDF, PT, BMP3M, PHOS3, MG3, CK3 #### [address] #### [id number] #### [facility] [address] [place] [address] Monocytes/100 WBC (Bld) 5.5 % Normal 2.0-10.0 [facility] Comment on above: Performed By: #### H EMDF, PT, BMP3M, PHOS3, MG3, CK3 #### [place] [address] [address] [place], [place] #### [id number] #### [facility] [address] [place] [address] Platelet mean volume Entitic volume (Bld) 8.2 fL Normal 7.4-10.4 [facility] Comment on above: Performed By: #### H EMDF, PT, BMP3M, PHOS3, MG3, CK3 #### [place] [place], [place] #### VD25H #### [facility] [address] [place] [address] Platelets #/vol (Bld) 475 10*3/uL High 140-440 [facility] Comment on above: Performed By: #### H EMDF, PT, BMP3M, PHOS3, MG3, CK3 #### [address] #### VD25H #### [facility] [address] [place] [address] RBC #/vol (Bld) 3.75 10*6/uL Low 4.40-5.[address] [facility] Comment on above: Performed By: #### H EMDF, PT, BMP3M, PHOS3, MG3, CK3 #### [address] #### VD25H #### [facility] [address] [place] [address] WBC #/vol (Bld) 16.6 10*3/uL High 3.6-10.[address] [facility] Comment on above: Performed By: #### H EMDF, PT, BMP3M, PHOS3, MG3, CK3 #### [address] [place], [place] #### VD25H #### [facility] [address] [place] [address] Magnesiumon 07-31-2018 Magnesium mass conc 2.4 mg/dL High 1.6-2.3 [facility] Comment on above: Performed By: #### H EMDF, PT, BMP3M, PHOS3, MG3, CK3 #### [address] [place], [place] #### VD25H #### [facility] [address] [place] [address] Phosphoruson 07-31-2018 Phosphate mass conc 4.5 mg/dL Normal 2.5-4.5 [facility] Comment on above: Performed By: #### H EMDF, PT, BMP3M, PHOS3, MG3, CK3 #### [address] #### VD25H #### [facility] [address] [place] [address] Basic Metabolic Panelon Calcium mass conc 8.6 mg/dL Normal 8.4-10.4 [facility] Comment on above: Performed By: #### H EMDF, PT, BMP3M, PHOS3, MG3, CK3 #### [address], [place] #### VD25H #### [facility] [address] [place] [address] Anion gap molar conc 8 Normal [facility] Comment on above: Performed By: #### H EMDF, PT, BMP3M, PHOS3, MG3, CK3 #### [address] #### VD25H #### [facility] [address] [place] [address] CO2 molar conc 34 mmol/L High 22-30 [facility] Comment on above: Performed By: #### H EMDF, PT, BMP3M, PHOS3, MG3, CK3 #### [address], [place] #### VD25H #### [facility] [address] [place] [address] Creatinine mass conc 0.56 mg/dL Normal 0.52-1.25 [facility] Comment on above: Performed By: #### H EMDF, PT, BMP3M, PHOS3, MG3, CK3 #### [address] #### VD25H #### [facility] [address] [place] [address] GFR/1.73 sq M predicted among blacks MDRD vol rate/area (S/P/Bld) mL/min/{1.73_m2} Normal >60 [facility] Comment on above: Performed By: #### H EMDF, PT, BMP3M, PHOS3, MG3, CK3 #### [address] #### VD25H #### [facility] [address] [place] [address] GFR/1.73 sq M predicted among non-blacks MDRD vol rate/area (S/P/Bld) mL/min/{1.73_m2} Normal >60 [facility] Comment on above: Result Comment: Sour ce- MDRD equation with creatinine calibration to IDMS(NKDEP) eGFR not recommended for drug dose adjustment Performed By: #### H EMDF, PT, BMP3M, PHOS3, MG3, CK3 #### [address] #### VD25H #### [facility] [address] [place] [address] Glucose mass conc 121 mg/dL High 70-100 [facility] Comment on above: Performed By: #### H EMDF, PT, BMP3M, PHOS3, MG3, CK3 #### [address] #### VD25H #### [facility] [address] [place] [address] Urea nitrogen mass conc 29 mg/dL High 7-20 S [facility] Comment on above: Performed By: #### H EMDF, PT, BMP3M, PHOS3, MG3, CK3 #### [facility] [address] [place] [place] [address] #### VD25H #### [facility] [address] [place] [address] Chloride molar conc 99 mmol/L Normal 98-107 [facility] Comment on above: Performed By: #### H EMDF, PT, BMP3M, PHOS3, MG3, CK3 #### [facility] [address] [place] [place] [address] #### VD25H #### [facility] [address] [place] [address] Potassium molar conc 3.7 mmol/L Normal 3.5-5.1 [facility] Comment on above: Performed By: #### H EMDF, PT, BMP3M, PHOS3, MG3, CK3 #### [facility] [address] [place] [place] [address] #### VD25H #### [facility] [address] [place] [address] Sodium molar conc 141 mmol/L Normal 135-[address] [facility] Comment on above: Performed By: #### H EMDF, PT, BMP3M, PHOS3, MG3, CK3 #### [facility] [address] [place] [facility] [place] [address] #### VD25H #### [facility] [address] [place] [address] CR Abdomen APon 07-30-2018 CR Abdomen AP Patient Name: KATHYA HOOPER Diagnostic Radiology Exam Date/Time 07/30/2018 10:28:42 EDT Exam CR Abdomen AP Ordering Physician INDRA JACOBSON Accession Number [id number] CPT4 Codes 14187 () Reason For Exam abd distension Report KUB History: Abdominal distention Findings: Two AP spine abdominal views show large amount of gas in distended large and small bowel loops that could reflect ileus. However, routine evaluation of any possible free air requires upright or decubitus views that are not concurrently available. There is pelvic masslike fullness that could reflect distended urinary bladder with corresponding bowel evaluation. Tip of PEG tube project in the left upper abdomen. There is spondylosis. IMPRESSION: Limited exam. Gaseous bowel distention could reflect ileus. Report Dictated on Final Dictated: 07/30/2018 3:57 pm Dictating Physician: MD CANCINO AHMAD Signed Date and Time: 07/30/2018 4:01 pm Signed by: MD CANCINO AHMAD Transcribed Date and Time: 07/30/2018 3:57 Normal [facility] CR Chest Portableon 07-31-19 19 CR Chest Portable Patient Name: KATHYA HOOPER Diagnostic Radiology Exam Date/Time 07/30/2018 12:28:13 EDT Exam CR Chest Portable Ordering Physician SALO DAVIS Accession Number [id number] CPT4 Codes 66438 () Reason For Exam line reposition Report CHEST: CLINICAL INDICATION: Line repositioning TECHNIQUE: AP portable chest COMPARISON: 07/30/2018 FINDINGS: Left PICC is again seen, which turns upwards and terminates overlying the right internal jugular vein. A tracheostomy cannula is again seen The cardiomediastinal silhouette appears unchanged from the prior exam. Bibasilar atelectasis and small left pleural effusion are again seen. IMPRESSION: 1. The left PICC again terminates overlying the right internal jugular vein. Recommend repositioning. 2. Small left pleural effusion. Report Dictated on Final Dictated: 07/30/2018 1:32 pm Dictating Physician: MD BOLAÑOS NICHOLAS Signed Date and Time: 07/30/2018 1:34 pm Signed by: MD BOLAÑOS NICHOLAS Transcribed Date and Time: 07/30/2018 1:32 Normal [facility] CR Chest Portable Patient Name: KATHYA HOOPER Diagnostic Radiology Exam Date/Time 07/30/2018 06:40:08 EDT Exam CR Chest Portable Ordering Physician MARIA EUGENIA PEREZ Accession Number [id number] CPT4 Codes 06328 () Reason For Exam ETT placement Report CLINICAL INFORMATION: Respiratory distress. Portable view of the chest at 0615 hours is provided and compared to a previous study dated July 29, 2018. FINDINGS: A midline tracheostomy tube is in place. A PICC line is noted via the left arm. The distal tip is deflected into the right internal jugular vein. The cardiac silhouette and mediastinum are otherwise unremarkable. There is mild bibasilar atelectasis. There is blunting of left costophrenic angle consistent with a small effusion. IMPRESSION: 1. Left-sided PICC line as described. The distal tip has now flipped up into the right internal jugular vein. This may reposition into the superior vena cava with a brisk flush of saline with a small syringe (5 or 10 mL). 2. Small left-sided pleural effusion. Report Dictated on Final Dictated: 07/30/2018 10:26 am Dictating Physician: MD JERNIGAN JEFFREY Signed Date and Time: 07/30/2018 10:28 am Signed by: MD JERNIGAN JEFFREY Transcribed Date and Time: 07/30/2018 10:26 [facility] 07-30-2018 Glucose mass conc 125 mg/dL High 70-100 [facility] Comment on above: Result Comment: Test performed by glucose meter. Results may be 10%-15% lower than serum/plasma values. (CLIA ID [id number]) Performed By: #### H EMDF, PT, BMP3M, PHOS3, MG3, CK3 #### [address] [place] [address] #### VD25H #### [facility] [address] [place] [address] Glucose mass conc 117 mg/dL High 70-100 [facility] Comment on above: Result Comment: Test performed by glucose meter. Results may be 10%-15% lower than serum/plasma values. (CLIA ID [id number]) Performed By: #### H EMDF, PT, BMP3M, PHOS3, MG3, CK3 #### [address] [place] [address] #### VD25H #### [facility] [address] [place] [address] Glucose mass conc 44 mg/dL Low 70-[address] [facility] Comment on above: Result Comment: Repe ated Test; Test performed by glucose meter. Results may be 10%-15% lower than serum/plasma values. (CLIA ID [id number]) Performed By: #### H EMDF, PT, BMP3M, PHOS3, MG3, CK3 #### [address] #### VD25H #### [place] [address] [place] [address] Hemogram w/ Autodiffon 07-30 Abs Baso Cnt 0.2 10*3/uL Normal 0.0-0.2 [facility] Comment on above: Performed By: #### H EMDF, PT, BMP3M, PHOS3, MG3, CK3 #### [address] #### VD25H #### [place] [address] [place] [address] Abs Neutrophile Cnt 13.2 10*3/uL High 1.8-7.0 [facility] Comment on above: Performed By: #### H EMDF, PT, BMP3M, PHOS3, MG3, CK3 #### [address] #### VD25H #### [place] [address] [place] [address] Basophils/100 WBC (Bld) 0.9 % Normal 0.0-2.0 S [facility] Comment on above: Performed By: #### H EMDF, PT, BMP3M, PHOS3, MG3, CK3 #### [address] #### VD25H #### [place] [address] [place] [address] Eosinophils #/vol (Bld) 0.5 10*3/uL Normal 0.0-0.5 [facility] Comment on above: Performed By: #### H EMDF, PT, BMP3M, PHOS3, MG3, CK3 #### [facility] [address] [place], [place] #### VD25H #### [facility] [address] [place] [address] Eosinophils/100 WBC (Bld) 2.8 % Normal 1.0-6.0 [facility] Comment on above: Performed By: #### H EMDF, PT, BMP3M, PHOS3, MG3, CK3 #### [address] #### VD25H #### [facility] [address] [place] [address] Erythrocyte distribution width Ratio (RBC) 13.7 % Normal 11.5-14.5 [facility] Comment on above: Performed By: #### H EMDF, PT, BMP3M, PHOS3, MG3, CK3 #### [address] #### VD25H #### [facility] [address] [place] [address] Granulocytes/100 WBC (Bld) 76.6 % Normal 40.0-80.0 [facility] Comment on above: Performed By: #### H EMDF, PT, BMP3M, PHOS3, MG3, CK3 #### [address] [address] [place], [place] #### VD25H #### [facility] [address] [place] [address] Hematocrit Volume Fraction (Bld) 31.4 % Low 40.0-52.0 [facility] Comment on above: Performed By: #### H EMDF, PT, BMP3M, PHOS3, MG3, CK3 #### [address] #### VD25H #### [facility] [address] [place] [address] Hemoglobin mass conc (Bld) 10.6 g/dL Low 13.0-18.0 [facility] Comment on above: Performed By: #### H EMDF, PT, BMP3M, PHOS3, MG3, CK3 #### [address] #### VD25H #### [facility] [address] [place] [address] Lymphocytes #/vol (Bld) 2.2 10*3/uL Normal 1.0-4.3 [facility] Comment on above: Performed By: #### H EMDF, PT, BMP3M, PHOS3, MG3, CK3 #### [address] #### VD25H #### [place] [address] [place] [address] Lymphocytes/100 WBC (Bld) 12.9 % Low 20.0-40.0 [facility] Comment on above: Performed By: #### H EMDF, PT, BMP3M, PHOS3, MG3, CK3 #### [address] #### VD25H #### [facility] [address] [place] [address] MCH Entitic mass (RBC) 29.2 pg Normal 26.0-34.0 [facility] Comment on above: Performed By: #### H EMDF, PT, BMP3M, PHOS3, MG3, CK3 #### [address] #### VD25H #### [facility] [address] [place] [address] MCHC mass conc (RBC) 33.8 % Normal 32.0-36.0 [facility] Comment on above: Performed By: #### H EMDF, PT, BMP3M, PHOS3, MG3, CK3 #### [address] #### VD25H #### [facility] [address] [place] [address] MCV Entitic volume (RBC) 86.4 fL Normal 80.0-98.0 [facility] Comment on above: Performed By: #### H EMDF, PT, BMP3M, PHOS3, MG3, CK3 #### [address] [place], [place] #### VD25H #### [facility] [address] [place] [address] Monocytes #/vol (Bld) 1.2 10*3/uL High 0.0-0.8 [facility] Comment on above: Performed By: #### H EMDF, PT, BMP3M, PHOS3, MG3, CK3 #### [address] #### VD25H #### [place] [address] [place] [address] Monocytes/100 WBC (Bld) 6.8 % Normal 2.0-10.0 [facility] Comment on above: Performed By: #### H EMDF, PT, BMP3M, PHOS3, MG3, CK3 #### [address] #### VD25H #### [facility] [address] [place] [address] Platelet mean volume Entitic volume (Bld) 8.1 fL Normal 7.4-10.4 [facility] Comment on above: Performed By: #### H EMDF, PT, BMP3M, PHOS3, MG3, CK3 #### [address] #### VD25H #### [facility] [address] [place] [address] Platelets #/vol (Bld) 507 10*3/uL High 140-440 [facility] Comment on above: Performed By: #### H EMDF, PT, BMP3M, PHOS3, MG3, CK3 #### [address] #### VD25H #### [facility] [address] [place] [address] RBC #/vol (Bld) 3.64 10*6/uL Low 4.40-5.[address] [facility] Comment on above: Performed By: #### H EMDF, PT, BMP3M, PHOS3, MG3, CK3 #### [address] [address] [place], [place] #### VD25H #### [facility] [address] [place] [address] WBC #/vol (Bld) 17.2 10*3/uL High 3.6-10.[address] [facility] Comment on above: Performed By: #### H EMDF, PT, BMP3M, PHOS3, MG3, CK3 #### [address] #### VD25H #### [facility] [employer] [place] [address] [place] [address] Magnesiumon 07-30-2018 Magnesium mass conc 2.5 mg/dL High 1.6-2.3 [facility] Comment on above: Performed By: #### H EMDF, PT, BMP3M, PHOS3, MG3, CK3 #### [address] #### VD25H #### [address] [place] [address] Phosphoruson 07-30-2018 Phosphate mass conc 4.5 mg/dL Normal 2.5-4.5 [facility] Comment on above: Performed By: #### H EMDF, PT, BMP3M, PHOS3, MG3, CK3 #### [address] #### VD25H #### [place] [address] [place] [address] VL Venous Duplex US Lower Ex t Bilateralon 07-30-2018 VL Venous Duplex US Lower Ext Bilateral Patient Name: KATHYA HOOPER Ultrasound Exam Date/Time 07/30/2018 12:27:47 EDT Exam VL Venous Duplex US Lower Ext Bilateral Ordering Physician ETIENNE MARTÍNEZ JULIE Accession Number [id number] CPT4 Codes 57119 () Reason For Exam edema Report [facility] --- Lower Extremity Venous Duplex Report Patient Name: Kathya Hooper : 1955 Study Date: 07/30/2018 W (63yrs) Age: 63 Account: [id number] Gender: M Loc: T209 BP: Ordering: Yesenia Martínez Technologist: Ordering Physician: Yesenia Martínez Metal Burrer: Barbara Suarez RDMS, [facility] Interpreting Physician: Krysta Arora --- Location: [facility] --- INDICATIONS: Edema. --- CONCLUSIONS 1. Normal venous duplex --- IMPRESSIONS: These findings are negative for deep or superficial vein thrombosis in the bilateral lower extremities. --- STUDY DATA: Complete lower extremity venous duplex evaluation. Birthdate: Patient birthdate: 1955. Age: Patient is 63 yr old. Sex: Gender: male. Ethnicity: Ethnicity: white. Doppler flow study including spectral analysis, color and boland scale imaging. Patient status: Inpatient. Procedure: A vascular evaluation was performed. The images were obtained using a Innovate2 E9 vascular ultrasound machine. --- VENOUS FLOW AND IMAGING: + ---------+-------+--- --+ !Location !Overall!Flow properties ! + ---------+-------+--- --+ !Right common femoral !Patent !Normal phasicity; spontaneous; normal ! ! ! !augmentation; compressible ! + ---------+-------+--- --+ !Right saphenofemoral junction!Patent !Compressible ! + ---------+-------+--- --+ !Right profunda femoral !Patent !Normal phasicity; spontaneous; normal ! ! ! !augmentation ! + ---------+-------+--- --+ !R femoral proximal !Patent !Compressible ! + ---------+-------+--- --+ !R femoral mid !Patent !Normal phasicity; spontaneous; normal ! ! ! !augmentation; compressible ! + ---------+-------+--- --+ !R femoral distal !Patent !Compressible ! + ---------+-------+--- --+ !Right popliteal !Patent !Normal phasicity; spontaneous; normal ! ! ! !augmentation; compressible ! + ---------+-------+--- --+ !Right gastrocnemius !Patent !Compressible ! + ---------+-------+--- --+ !Right posterior tibial !Patent !Compressible ! + ---------+-------+--- --+ !Right peroneal !Patent !Compressible ! + ---------+-------+--- --+ !Right soleal !Patent !Compressible ! + ---------+-------+--- --+ !Right greater saphenous !Patent !Compressible ! + ---------+-------+--- --+ !Left common femoral !Patent !Normal phasicity; spontaneous; normal ! ! ! !augmentation; compressible ! + ---------+-------+--- --+ !Left saphenofemoral junction !Patent !Compressible ! + ---------+-------+--- --+ !Left profunda femoral !Patent !Normal phasicity; spontaneous; normal ! ! ! !augmentation ! + ---------+-------+--- --+ !L femoral proximal !Patent !Compressible ! + ---------+-------+--- --+ !L femoral mid !Patent !Normal phasicity; spontaneous; normal ! ! ! !augmentation; compressible ! + ---------+-------+--- --+ !L femoral distal !Patent !Compressible ! + ---------+-------+--- --+ !Left popliteal !Patent !Normal phasicity; spontaneous; normal ! ! ! !augmentation; compressible ! + ---------+-------+--- --+ !Left gastrocnemius !Patent !Compressible ! + ---------+-------+--- --+ !Left posterior tibial !Patent !Compressible ! + ---------+-------+--- --+ !Left peroneal !Patent !Compressible ! + ---------+-------+--- --+ !Left soleal !Patent !Compressible ! + ---------+-------+--- --+ !Left greater saphenous !Patent !Compressible ! + ---------+-------+--- --+ Electronically signed by: Krysta Arora [id number] Final Dictated: 07/30/2018 1:30 pm Dictating Physician: KRYSTA ARORA Signed Date and Time: 07/30/2018 1:29 pm Signed by: KRYSTA ARORA Normal [facility] Arterial Blood Gaseson 07-29 CO2 molar conc 34.4 mmol/L High 23.0-27.0 [facility] Comment on above: Performed By: #### H EMDF, PT, BMP3M, PHOS3, MG3, CK3 #### [facility] [employer] [facility] [address] [place] [address] #### VD25H #### [facility] [address] [place] [address] HCO3 molar conc (Bld) 33.0 mmol/L High 21.0-25.0 [facility] Comment on above: Performed By: #### H EMDF, PT, BMP3M, PHOS3, MG3, CK3 #### [facility] [address] [place], [place] #### VD25H #### [facility] [address] [place] [address] Hemoglobin mass conc (Bld) 11.5 g/dL Normal [facility] Comment on above: Performed By: #### H EMDF, PT, BMP3M, PHOS3, MG3, CK3 #### [facility] [address] [place], [place] #### VD25H #### [facility] [address] [place] [address] Oxygen ppres (Bld) 84.2 mm[Hg] Normal 80.0-100.0 [facility] Comment on above: Performed By: #### H EMDF, PT, BMP3M, PHOS3, MG3, CK3 #### [place] [address] [place], [place] #### VD25H #### [facility] [address] [place] [address] Oxygen saturation in Blood 96.2 % Normal 95.0-100.0 [facility] Comment on above: Performed By: #### H EMDF, PT, BMP3M, PHOS3, MG3, CK3 #### [place] [address] [place], [place] #### VD25H #### [facility] [address] [place] [address] pCO2 46.8 mm[Hg] High 35.0-45.0 [facility] Comment on above: Performed By: #### H EMDF, PT, BMP3M, PHOS3, MG3, CK3 #### [place] [address] [place] #### VD25H #### [facility] [address] [place] [address] pH (Bld) 7.466 High 7.350-7.450 [facility] Comment on above: Performed By: #### H EMDF, PT, BMP3M, PHOS3, MG3, CK3 #### [place] [address] [place], [place] #### VD25H #### [facility] [address] [place] [address] Std Base Excess 8.2 mmol/L High -3.0-3.0 [facility] Comment on above: Performed By: #### H EMDF, PT, BMP3M, PHOS3, MG3, CK3 #### [place] [address] [facility], [place] #### VD25H #### [facility] [address] [place] [address] FIO2 .30 Normal [facility] Comment on above: Performed By: #### H EMDF, PT, BMP3M, PHOS3, MG3, CK3 #### [place] [address] [facility], [place] #### VD25H #### [facility] [address] [place] [address] Basic Metabolic Panelon 03-3 Calcium mass conc 8.5 mg/dL Normal 8.4-10.4 [facility] Comment on above: Performed By: #### H EMDF, PT, BMP3M, PHOS3, MG3, CK3 #### [place] [address] [facility], [place] #### VD25H #### [facility] [address] [place] [address] Glucose mass conc 163 mg/dL High 70-100 [facility] Comment on above: Performed By: #### H EMDF, PT, BMP3M, PHOS3, MG3, CK3 #### [place] [address] [facility], [place] #### VD25H #### [facility] [address] [place] [address] Anion gap molar conc 10 Normal [facility] Comment on above: Performed By: #### H EMDF, PT, BMP3M, PHOS3, MG3, CK3 #### [place] [address] [facility], [place] #### VD25H #### [facility] [address] [place] [address] CO2 molar conc 37 mmol/L High 22-30 [facility] Comment on above: Performed By: #### H EMDF, PT, BMP3M, PHOS3, MG3, CK3 #### [facility] [address] [place], [place] #### VD25H #### [facility] [address] [place] [address] Creatinine mass conc 0.57 mg/dL Normal 0.52-1.25 [facility] Comment on above: Performed By: #### H EMDF, PT, BMP3M, PHOS3, MG3, CK3 #### [address] #### VD25H #### [facility] [address] [place] [address] GFR/1.73 sq M predicted among blacks MDRD vol rate/area (S/P/Bld) mL/min/{1.73_m2} Normal >60 [facility] Comment on above: Performed By: #### H EMDF, PT, BMP3M, PHOS3, MG3, CK3 #### [address] #### VD25H #### [facility] [address] [place] [address] GFR/1.73 sq M predicted among non-blacks MDRD vol rate/area (S/P/Bld) mL/min/{1.73_m2} Normal >[address] [facility] Comment on above: Result Comment: Sour ce- MDRD equation with creatinine calibration to IDMS(NKDEP) eGFR not recommended for drug dose adjustment Performed By: #### H EMDF, PT, BMP3M, PHOS3, MG3, CK3 #### [address] #### VD25H #### [facility] [address] [place] [address] Urea nitrogen mass conc 30 mg/dL High 7-20 [facility] Comment on above: Performed By: #### H EMDF, PT, BMP3M, PHOS3, MG3, CK3 #### [facility] [address] [place] [address] #### VD25H #### [facility] [address] [place] [address] Chloride molar conc 95 mmol/L Low 98-107 [facility] Comment on above: Performed By: #### H EMDF, PT, BMP3M, PHOS3, MG3, CK3 #### [facility] [address] [place] [address] #### VD25H #### [facility] [address] [place] [address] Potassium molar conc 3.3 mmol/L Low 3.5-5.1 [facility] Comment on above: Performed By: #### H EMDF, PT, BMP3M, PHOS3, MG3, CK3 #### [facility] [address] [place], [place] #### VD25H #### [facility] [address] [place] [address] Sodium molar conc 141 mmol/L Normal 135-[address] [facility] Comment on above: Performed By: #### H EMDF, PT, BMP3M, PHOS3, MG3, CK3 #### [facility] [address] [place] [id number] #### VD25H #### [facility] [address] [place] [address] CR Chest Portableon 07-30-19 19 CR Chest Portable Patient Name: KATHYA HOOPER Diagnostic Radiology Exam Date/Time 07/29/2018 07:01:44 EDT Exam CR Chest Portable Ordering Physician MARIA EUGENIA PEREZ Accession Number [id number] CPT4 Codes 52719 () Reason For Exam ETT placement Report CLINICAL INDICATION: ETT placement COMPARISON: 07/29/2018 TECHNIQUE: Single portable AP radiograph of the chest. FINDINGS: LUNGS/PLEURA: There is mild increase in right basilar opacities. Left basilar opacities are unchanged. Trachea is midline. There is no pneumothorax. MEDIASTINUM:Heart size and mediastinal contours are normal. VASCULARITY: Normal BONES:Unremarkable SUPPORT LINES: Tracheostomy tube is unchanged. IMPRESSION: Mild interval increase in right basilar atelectasis. Left basilar opacities remain unchanged. Report Dictated on Final Dictated: 07/29/2018 9:04 am Dictating Physician: MD JORDAN YUN ROBERT Signed Date and Time: 07/29/2018 9:13 am Signed by: MD JORDAN YUN ROBERT Transcribed Date and Time: 07/29/2018 9:04 Normal [facility] Glucose,Bedsideon 07-29-2018 Glucose mass conc 124 mg/dL High 70-100 [facility] Comment on above: Result Comment: Test performed by glucose meter. Results may be 10%-15% lower than serum/plasma values. (CLIA ID [id number]) Performed By: #### H EMDF, PT, BMP3M, PHOS3, MG3, CK3 #### [employer] [address] [place] [address] #### VD25H #### [facility] [address] [place] [address] Glucose mass conc 175 mg/dL High 70-100 [facility] Comment on above: Result Comment: Test performed by glucose meter. Results may be 10%-15% lower than serum/plasma values. (CLIA ID [id number]) Performed By: #### H EMDF, PT, BMP3M, PHOS3, MG3, CK3 #### [facility] [facility] [address] [place] [address] #### VD25H #### [facility] [address] [place] [address] Glucose mass conc 138 mg/dL High 70-100 [facility] Comment on above: Result Comment: Test performed by glucose meter. Results may be 10%-15% lower than serum/plasma values. (CLIA ID [id number]) Performed By: #### H EMDF, PT, BMP3M, PHOS3, MG3, CK3 #### [address] #### VD25H #### [facility] [address] [place] [address] Glucose mass conc 147 mg/dL High 70-[address] [facility] Comment on above: Result Comment: Test performed by glucose meter. Results may be 10%-15% lower than serum/plasma values. (CLIA ID [id number]) Performed By: #### H EMDF, PT, BMP3M, PHOS3, MG3, CK3 #### [address] #### VD25H #### [facility] [address] [place] [address] Hemogram w/ Autodiffon 07-29 Erythrocyte distribution width Ratio (RBC) 13.8 % Normal 11.5-14.5 [facility] Comment on above: Performed By: #### H EMDF, PT, BMP3M, PHOS3, MG3, CK3 #### [address] #### VD25H #### [facility] [address] [place] [address] Hematocrit Volume Fraction (Bld) 32.9 % Low 40.0-52.0 [facility] Comment on above: Performed By: #### H EMDF, PT, BMP3M, PHOS3, MG3, CK3 #### [address] #### VD25H #### [facility] [address] [place] [address] Hemoglobin mass conc (Bld) 11.0 g/dL Low 13.0-18.0 [facility] Comment on above: Performed By: #### H EMDF, PT, BMP3M, PHOS3, MG3, CK3 #### [address] #### VD25H #### [facility] [address] [place] [place] [address] MCH Entitic mass (RBC) 29.0 pg Normal 26.0-34.0 [facility] Comment on above: Performed By: #### H EMDF, PT, BMP3M, PHOS3, MG3, CK3 #### [facility] [address] [place] #### VD25H #### [facility] [address] [place] [address] MCHC mass conc (RBC) 33.6 % Normal 32.0-36.0 [facility] Comment on above: Performed By: #### H EMDF, PT, BMP3M, PHOS3, MG3, CK3 #### [place] [address] [place], [place] #### VD25H #### [facility] [address] [place] [address] MCV Entitic volume (RBC) 86.3 fL Normal 80.0-98.0 [facility] Comment on above: Performed By: #### H EMDF, PT, BMP3M, PHOS3, MG3, CK3 #### [address] #### VD25H #### [facility] [address] [place] [address] Platelet mean volume Entitic volume (Bld) 8.1 fL Normal 7.4-10.4 [facility] Comment on above: Performed By: #### H EMDF, PT, BMP3M, PHOS3, MG3, CK3 #### [place] [address] [place], [place] #### VD25H #### [facility] [address] [place] [address] Platelets #/vol (Bld) 501 10*3/uL High 140-440 [facility] Comment on above: Performed By: #### H EMDF, PT, BMP3M, PHOS3, MG3, CK3 #### [address] #### VD25H #### [facility] [address] [place] [address] RBC #/vol (Bld) 3.81 10*6/uL Low 4.40-5.90 [facility] Comment on above: Performed By: #### H EMDF, PT, BMP3M, PHOS3, MG3, CK3 #### [address] #### VD25H #### [facility] [address] [place] [address] WBC #/vol (Bld) 20.8 10*3/uL High 3.6-10.7 [facility] Comment on above: Performed By: #### H EMDF, PT, BMP3M, PHOS3, MG3, CK3 #### [address] #### VD25H #### [facility] [address] [place] [address] Magnesiumon 07-29-2018 Magnesium mass conc 2.5 mg/dL High 1.6-2.3 [facility] Comment on above: Performed By: #### H EMDF, PT, BMP3M, PHOS3, MG3, CK3 #### [address] #### VD25H #### [facility] [address] [place] [address] Manual Diffon 07-29-2018 Abs Neutrophile Cnt 17.3 10*3/uL High 2.2-8.2 [facility] Comment on above: Performed By: #### H EMDF, PT, BMP3M, PHOS3, MG3, CK3 #### [address] #### VD25H #### [facility] [address] [place] [address] Bands 1 % Normal 0-3 [facility] Comment on above: Performed By: #### H EMDF, PT, BMP3M, PHOS3, MG3, CK3 #### [address] #### VD25H #### [facility] [address] [place] [address] Eosinophils #/vol (Bld) 0.6 10*3/uL High 0.0-0.5 [facility] Comment on above: Performed By: #### H EMDF, PT, BMP3M, PHOS3, MG3, CK3 #### [facility] [address] [place] #### VD25H #### [facility] [address] [place] [address] Eosinophils/100 WBC (Bld) 3 % Normal 1-6 [facility] Comment on above: Performed By: #### H EMDF, PT, BMP3M, PHOS3, MG3, CK3 #### [address] #### VD25H #### [facility] [address] [place] [address] Lymphocytes #/vol (Bld) 2.3 10*3/uL Normal 1.1-4.5 [facility] Comment on above: Performed By: #### H EMDF, PT, BMP3M, PHOS3, MG3, CK3 #### [address] [place] [address] [place] #### VD25H #### [facility] [address] [place] [address] Lymphocytes/100 WBC (Bld) 11 % Low 20-40 [facility] Comment on above: Performed By: #### H EMDF, PT, BMP3M, PHOS3, MG3, CK3 #### [address] #### VD25H #### [facility] [address] [place] [address] Metamyelocytes 1 % Abnormal <1 [facility] Comment on above: Performed By: #### H EMDF, PT, BMP3M, PHOS3, MG3, CK3 #### [address] #### VD25H #### [facility] [address] [place] [address] Monocytes #/vol (Bld) 0.4 10*3/uL Normal 0.2-1.1 [facility] Comment on above: Performed By: #### H EMDF, PT, BMP3M, PHOS3, MG3, CK3 #### [place] [address] [place], [place] #### VD25H #### [facility] [address] [place] [address] Monocytes/100 WBC (Bld) 2 % Normal 2-10 [facility] Comment on above: Performed By: #### H EMDF, PT, BMP3M, PHOS3, MG3, CK3 #### [address] [place], [place] #### VD25H #### [place] [address] [place] [address] RBC morphology finding Nom (Bld) See Prev Normal [facility] Comment on above: Performed By: #### H EMDF, PT, BMP3M, PHOS3, MG3, CK3 #### [place] [place] #### VD25H #### [place] [address] [place] [address] Seg Neutrophils 82 % High 40-80 [facility] Comment on above: Performed By: #### H EMDF, PT, BMP3M, PHOS3, MG3, CK3 #### [place] [place] #### VD25H #### [facility] [address] [place] [address] Abs Baso Cnt 0.0 10*3/uL Normal 0.0-0.2 [facility] Comment on above: Performed By: #### H EMDF, PT, BMP3M, PHOS3, MG3, CK3 #### [address] [place] [place] #### VD25H #### [facility] [address] [place] [address] Basophils/100 WBC (Bld) 0 % Normal 0-2 [facility] Comment on above: Performed By: #### H EMDF, PT, BMP3M, PHOS3, MG3, CK3 #### [address] #### VD25H #### [facility] [address] [place] [address] Cells counted 100 Normal [facility] Comment on above: Performed By: #### H EMDF, PT, BMP3M, PHOS3, MG3, CK3 #### [address] #### VD25H #### [place] [address] [place] [address] Phosphoruson 07-29-2018 Phosphate mass conc 4.2 mg/dL Normal 2.5-4.5 [facility] Comment on above: Performed By: #### H EMDF, PT, BMP3M, PHOS3, MG3, CK3 #### [address] #### VD25H #### [place] [address] [place] [address] Procalcitoninon 07-29-2018 Protein mass conc 0.11 ng/mL Abnormal <0.[address] [facility] Comment on above: Performed By: #### H EMDF, PT, BMP3M, PHOS3, MG3, CK3 #### [address] #### VD25H #### [place] [address] [place] [address] Interpretation See Below Normal [facility] Comment on above: Result Comment: PCT <0.50 = Low risk of severe sepsis and/or septic shock. PCT >2.00 = High risk of severe sepsis and/or septic shock. Performed By: #### H EMDF, PT, BMP3M, PHOS3, MG3, CK3 #### [address] [place], [place] #### VD25H #### [facility] [address] [place] [address] Vancomycin Troughon 07-30-19 Vancomycin Trough 12.2 ug/mL Low 15.0-20.[address] [facility] Comment on above: Result Comment: . Performed By: #### H EMDF, PT, BMP3M, PHOS3, MG3, CK3 #### [address] [place] #### VD25H #### [facility] [address] [place] [address] Basic Metabolic Panelon 07-01 Calcium mass conc 8.6 mg/dL Normal 8.4-10.[address] [facility] Comment on above: Performed By: #### H EMDF, PT, BMP3M, PHOS3, MG3, CK3 #### [address] #### VD25H #### [facility] [address] [place] [address] Glucose mass conc 158 mg/dL High 70-[address] [facility] Comment on above: Performed By: #### H EMDF, PT, BMP3M, PHOS3, MG3, CK3 #### [address] #### VD25H #### [facility] [address] [place] [address] Urea nitrogen mass conc 29 mg/dL High 7-20 S [facility] Comment on above: Performed By: #### H EMDF, PT, BMP3M, PHOS3, MG3, CK3 #### [address] #### VD25H #### [facility] [address] [place] [address] Anion gap molar conc 9 Normal [facility] Comment on above: Performed By: #### H EMDF, PT, BMP3M, PHOS3, MG3, CK3 #### [address] [place] [place] #### VD25H #### [facility] [address] [place] [address] CO2 molar conc 32 mmol/L High 22-30 [facility] Comment on above: Performed By: #### H EMDF, PT, BMP3M, PHOS3, MG3, CK3 #### [address] [place] #### VD25H #### [facility] [address] [place] [address] Creatinine mass conc 0.61 mg/dL Normal 0.52-1.25 [facility] Comment on above: Performed By: #### H EMDF, PT, BMP3M, PHOS3, MG3, CK3 #### [address] #### VD25H #### [place] [address] [place] [address] GFR/1.73 sq M predicted among blacks MDRD vol rate/area (S/P/Bld) mL/min/{1.73_m2} Normal >60 [facility] Comment on above: Performed By: #### H EMDF, PT, BMP3M, PHOS3, MG3, CK3 #### [address] #### VD25H #### [facility] [address] [place] [address] GFR/1.73 sq M predicted among non-blacks MDRD vol rate/area (S/P/Bld) mL/min/{1.73_m2} Normal >[address] [facility] Comment on above: Result Comment: Sour ce- MDRD equation with creatinine calibration to IDMS(NKDEP) eGFR not recommended for drug dose adjustment Performed By: #### H EMDF, PT, BMP3M, PHOS3, MG3, CK3 #### [address] [place] [address] [place], [place] #### VD25H #### [place] [address] [place] [address] Potassium molar conc 3.6 mmol/L Normal 3.5-5.1 [facility] Comment on above: Performed By: #### H EMDF, PT, BMP3M, PHOS3, MG3, CK3 #### [facility] [address] [place] [address] #### VD25H #### [facility] [address] [place] [address] Chloride molar conc 100 mmol/L Normal 98-107 [facility] Comment on above: Performed By: #### H EMDF, PT, BMP3M, PHOS3, MG3, CK3 #### [facility] [address] [place] [address] #### VD25H #### [facility] [address] [place] [address] Sodium molar conc 141 mmol/L Normal 135-[address] [facility] Comment on above: Performed By: #### H EMDF, PT, BMP3M, PHOS3, MG3, CK3 #### [facility] [address] [place] [address] #### VD25H #### [facility] [address] [place] [address] CR Chest Portableon 07-29-19 19 CR Chest Portable Patient Name: KATHYA HOOPER Diagnostic Radiology Exam Date/Time 07/28/2018 07:09:40 EDT Exam CR Chest Portable Ordering Physician MARIA EUGENIA PEREZ Accession Number [id number] CPT4 Codes 72357 () Reason For Exam ETT placement Report PORTABLE CHEST: INDICATION: Respiratory failure COMPARISON: 07/27/2018 Obtained at 0 622 hours. A single portable AP radiograph of the chest was obtained. The heart is normal in size. The mediastinal silhouette is normal. A left basal infiltrate is present. There is bibasal atelectasis. A small left effusion is also present. There is no pleural thickening. Arthritic changes of the spine and shoulders are present. IMPRESSION: No significant interval change. Bibasal atelectasis with left basal infiltrate and effusion. Report Dictated on Final Dictated: 07/28/2018 7:16 am Dictating Physician: DO FUCHS ALFRED Signed Date and Time: 07/28/2018 7:18 am Signed by: DO FUCHS ALFRED Transcribed Date and Time: 07/28/2018 7:16 Normal [facility] Glucose,Bedsideon 07-28-2018 Glucose mass conc 149 mg/dL High 70-100 [facility] Comment on above: Result Comment: Test performed by glucose meter. Results may be 10%-15% lower than serum/plasma values. (CLIA ID [id number]) Performed By: #### H EMDF, PT, BMP3M, PHOS3, MG3, CK3 #### [facility] [employer] [address] [address] [place], [place] #### VD25H #### [facility] [employer] [facility] [address] [place] [address] Glucose mass conc 142 mg/dL High 70-100 [facility] Comment on above: Result Comment: Test performed by glucose meter. Results may be 10%-15% lower than serum/plasma values. (CLIA ID [id number]) Performed By: #### H EMDF, PT, BMP3M, PHOS3, MG3, CK3 #### [facility] [employer] [facility] [address] [place], [place] #### VD25H #### [facility] [employer] [facility] [address] [place] [address] Hemogram w/ Autodiffon 07-28 Erythrocyte distribution width Ratio (RBC) 13.8 % Normal 11.5-14.5 [facility] Comment on above: Performed By: #### H EMDF, PT, BMP3M, PHOS3, MG3, CK3 #### [facility] [employer] [facility] [address] [place], [place] #### VD25H #### [facility] [address] [place] [address] Hematocrit Volume Fraction (Bld) 33.0 % Low 40.0-52.0 [facility] Comment on above: Performed By: #### H EMDF, PT, BMP3M, PHOS3, MG3, CK3 #### [address] [place], [place] #### VD25H #### [facility] [address] [place] [address] Hemoglobin mass conc (Bld) 11.0 g/dL Low 13.0-18.0 [facility] Comment on above: Performed By: #### H EMDF, PT, BMP3M, PHOS3, MG3, CK3 #### [address] #### VD25H #### [facility] [address] [place] [address] MCH Entitic mass (RBC) 28.7 pg Normal 26.0-34.0 [facility] Comment on above: Performed By: #### H EMDF, PT, BMP3M, PHOS3, MG3, CK3 #### [address] #### VD25H #### [facility] [address] [place] [address] MCHC mass conc (RBC) 33.4 % Normal 32.0-36.0 [facility] Comment on above: Performed By: #### H EMDF, PT, BMP3M, PHOS3, MG3, CK3 #### [address] #### VD25H #### [facility] [address] [place] [address] MCV Entitic volume (RBC) 86.0 fL Normal 80.0-98.0 [facility] Comment on above: Performed By: #### H EMDF, PT, BMP3M, PHOS3, MG3, CK3 #### [address] #### VD25H #### [facility] [address] [place] [address] Platelet mean volume Entitic volume (Bld) 8.4 fL Normal 7.4-10.4 [facility] Comment on above: Performed By: #### H EMDF, PT, BMP3M, PHOS3, MG3, CK3 #### [facility] [address] [place], [place] #### VD25H #### [facility] [address] [place] [address] Platelets #/vol (Bld) 477 10*3/uL High 140-440 [facility] Comment on above: Performed By: #### H EMDF, PT, BMP3M, PHOS3, MG3, CK3 #### [address] [address] [place], [place] #### VD25H #### [facility] [address] [place] [address] RBC #/vol (Bld) 3.84 10*6/uL Low 4.40-5.[address] [facility] Comment on above: Performed By: #### H EMDF, PT, BMP3M, PHOS3, MG3, CK3 #### [address] [place], [place] #### VD25H #### [facility] [address] [place] [address] WBC #/vol (Bld) 18.1 10*3/uL High 3.6-10.[address] [facility] Comment on above: Performed By: #### H EMDF, PT, BMP3M, PHOS3, MG3, CK3 #### [facility] [address] [place] #### VD25H #### [facility] [address] [place] [address] Magnesiumon 07-28-2018 Magnesium mass conc 2.4 mg/dL High 1.6-2.3 [facility] Comment on above: Performed By: #### H EMDF, PT, BMP3M, PHOS3, MG3, CK3 #### [address] [address] [place], [place] #### VD25H #### [facility] [address] [place] [address] Manual Diffon 07-28-2018 Abs Neutrophile Cnt 14.8 10*3/uL High 2.2-8.2 [facility] Comment on above: Performed By: #### H EMDF, PT, BMP3M, PHOS3, MG3, CK3 #### [address] [place], [place] #### VD25H #### [facility] [address] [place] [address] Anisocytosis Ql (Bld) Slight Normal [facility] Comment on above: Performed By: #### H EMDF, PT, BMP3M, PHOS3, MG3, CK3 #### [address] [place], [place] #### VD25H #### [place] [address] [place] [address] Hypochromia Slight Normal [facility] Comment on above: Performed By: #### H EMDF, PT, BMP3M, PHOS3, MG3, CK3 #### [address] #### VD25H #### [facility] [address] [place] [address] Lymphocytes #/vol (Bld) 1.3 10*3/uL Normal 1.1-4.5 [facility] Comment on above: Performed By: #### H EMDF, PT, BMP3M, PHOS3, MG3, CK3 #### [address] [place], [place] #### VD25H #### [facility] [address] [place] [address] Lymphocytes/100 WBC (Bld) 7 % Low 20-40 [facility] Comment on above: Performed By: #### H EMDF, PT, BMP3M, PHOS3, MG3, CK3 #### [address] [address] [place], [place] #### VD25H #### [facility] [address] [place] [address] Microcytosis Slight Normal [facility] Comment on above: Performed By: #### H EMDF, PT, BMP3M, PHOS3, MG3, CK3 #### [place] [place] #### VD25H #### [facility] [address] [place] [address] Monocytes #/vol (Bld) 2.0 10*3/uL High 0.2-1.1 [facility] Comment on above: Performed By: #### H EMDF, PT, BMP3M, PHOS3, MG3, CK3 #### [address] #### VD25H #### [facility] [address] [place] [address] Monocytes/100 WBC (Bld) 11 % High 2-10 S [facility] Comment on above: Performed By: #### H EMDF, PT, BMP3M, PHOS3, MG3, CK3 #### [address] [address] [place], [place] #### VD25H #### [facility] [address] [place] [address] RBC morphology finding Nom (Bld) ABNORMAL Normal [facility] Comment on above: Performed By: #### H EMDF, PT, BMP3M, PHOS3, MG3, CK3 #### [address] [address] [place], [place] #### VD25H #### [facility] [address] [place] [address] Seg Neutrophils 82 % High 40-80 [facility] Comment on above: Performed By: #### H EMDF, PT, BMP3M, PHOS3, MG3, CK3 #### [address] #### VD25H #### [facility] [address] [place] [address] Abs Baso Cnt 0.0 10*3/uL Normal 0.0-0.2 [facility] Comment on above: Performed By: #### H EMDF, PT, BMP3M, PHOS3, MG3, CK3 #### [facility] [address] [place], [place] #### VD25H #### [facility] [address] [place] [address] Bands 0 % Normal 0-3 [facility] Comment on above: Performed By: #### H EMDF, PT, BMP3M, PHOS3, MG3, CK3 #### [facility] [address] [place], [place] #### VD25H #### [facility] [address] [place] [address] Basophils/100 WBC (Bld) 0 % Normal 0-2 S [facility] Comment on above: Performed By: #### H EMDF, PT, BMP3M, PHOS3, MG3, CK3 #### [address] [place], [place] #### VD25H #### [facility] [address] [place] [address] Cells counted 100 Normal [facility] Comment on above: Performed By: #### H EMDF, PT, BMP3M, PHOS3, MG3, CK3 #### [facility] [address] [place], [place] #### VD25H #### [facility] [address] [place] [address] Eosinophils #/vol (Bld) 0.0 10*3/uL Normal 0.0-0.5 [facility] Comment on above: Performed By: #### H EMDF, PT, BMP3M, PHOS3, MG3, CK3 #### [address] [place] [address] [place], [place] #### VD25H #### [facility] [address] [place] [address] Eosinophils/100 WBC (Bld) 0 % Low 1-6 [facility] Comment on above: Performed By: #### H EMDF, PT, BMP3M, PHOS3, MG3, CK3 #### [address] [place], [place] #### VD25H #### [facility] [address] [place] [address] Phosphoruson 07-28-2018 Phosphate mass conc 4.4 mg/dL Normal 2.5-4.5 [facility] Comment on above: Performed By: #### H EMDF, PT, BMP3M, PHOS3, MG3, CK3 #### [address] #### VD25H #### [facility] [address] [place] [address] Vancomycin Troughon 07-29-19 19 Vancomycin Trough 12.9 ug/mL Low 15.0-20.[address] [facility] Comment on above: Result Comment: . Performed By: #### H EMDF, PT, BMP3M, PHOS3, MG3, CK3 #### [address] #### VD25H #### [place] [address] [place] [address] Arterial Blood Gaseson 07-27 CO2 molar conc 28.4 mmol/L High 23.0-27.0 [facility] Comment on above: Performed By: #### H EMDF, PT, BMP3M, PHOS3, MG3, CK3 #### [address] #### VD25H #### [facility] [address] [place] [address] HCO3 molar conc (Bld) 27.2 mmol/L High 21.0-25.0 [facility] Comment on above: Performed By: #### H EMDF, PT, BMP3M, PHOS3, MG3, CK3 #### [address] #### VD25H #### [facility] [address] [place] [address] Hemoglobin mass conc (Bld) 11.7 g/dL Normal ScreenOnly [facility] Comment on above: Performed By: #### H EMDF, PT, BMP3M, PHOS3, MG3, CK3 #### [facility] [address] [place], [place] #### VD25H #### [facility] [address] [place] [address] Oxygen ppres (Bld) 91.3 mm[Hg] Normal 80.0-100.0 [facility] Comment on above: Performed By: #### H EMDF, PT, BMP3M, PHOS3, MG3, CK3 #### [address] [address] [place], [place] #### VD25H #### [facility] [address] [place] [address] Oxygen saturation in Blood 96.9 % Normal 95.0-100.0 [facility] Comment on above: Performed By: #### H EMDF, PT, BMP3M, PHOS3, MG3, CK3 #### [facility] [address], [place] #### [id number] #### [facility] [address] [place] [address] pCO2 39.0 mm[Hg] Normal 35.0-45.0 [facility] Comment on above: Performed By: #### H EMDF, PT, BMP3M, PHOS3, MG3, CK3 #### [facility] [address] [place] #### VD25H #### [facility] [address] [place] [address] pH (Bld) 7.461 High 7.350-7.450 [facility] Comment on above: Performed By: #### H EMDF, PT, BMP3M, PHOS3, MG3, CK3 #### [facility] [address] [place], [place] #### VD25H #### [facility] [address] [place] [address] Std Base Excess 3.2 mmol/L High -3.0-3.0 [facility] Comment on above: Performed By: #### H EMDF, PT, BMP3M, PHOS3, MG3, CK3 #### [address] [place] [place], [place] #### VD25H #### [facility] [address] [place] [address] FIO2 No data Normal [facility] Comment on above: Performed By: #### H EMDF, PT, BMP3M, PHOS3, MG3, CK3 #### [address] [place] #### VD25H #### [facility] [address] [place] [address] Basic Metabolic Panelon -2 Anion gap molar conc 12 Normal [facility] Comment on above: Performed By: #### H EMDF, PT, BMP3M, PHOS3, MG3, CK3 #### [address] [place] #### VD25H #### [facility] [address] [place] [address] Calcium mass conc 8.3 mg/dL Low 8.4-10.4 [facility] Comment on above: Performed By: #### H EMDF, PT, BMP3M, PHOS3, MG3, CK3 #### [address] [place] #### VD25H #### [facility] [address] [place] [address] CO2 molar conc 28 mmol/L Normal 22-30 [facility] Comment on above: Performed By: #### H EMDF, PT, BMP3M, PHOS3, MG3, CK3 #### [address] [place] #### VD25H #### [facility] [address] [place] [address] Glucose mass conc 156 mg/dL High 70-[address] [facility] Comment on above: Performed By: #### H EMDF, PT, BMP3M, PHOS3, MG3, CK3 #### [address] [address] #### VD25H #### [facility] [address] [place] [address] Urea nitrogen mass conc 21 mg/dL High 7-20 S [facility] Comment on above: Performed By: #### H EMDF, PT, BMP3M, PHOS3, MG3, CK3 #### [address] [address] #### VD25H #### [facility] [address] [place] [address] Creatinine mass conc 0.53 mg/dL Normal 0.52-1.25 [facility] Comment on above: Performed By: #### H EMDF, PT, BMP3M, PHOS3, MG3, CK3 #### [address] [address] #### VD25H #### [facility] [address] [place] [address] GFR/1.73 sq M predicted among blacks MDRD vol rate/area (S/P/Bld) mL/min/{1.73_m2} Normal >60 [facility] Comment on above: Performed By: #### H EMDF, PT, BMP3M, PHOS3, MG3, CK3 #### [address] [address] #### VD25H #### [facility] [address] [place] [address] GFR/1.73 sq M predicted among non-blacks MDRD vol rate/area (S/P/Bld) mL/min/{1.73_m2} Normal >[address] [facility] Comment on above: Result Comment: Sour ce- MDRD equation with creatinine calibration to IDMS(NKDEP) eGFR not recommended for drug dose adjustment Performed By: #### H EMDF, PT, BMP3M, PHOS3, MG3, CK3 #### [address] [place] #### VD25H #### [facility] [address] [place] [address] Potassium molar conc 3.2 mmol/L Low 3.5-5.1 [facility] Comment on above: Performed By: #### H EMDF, PT, BMP3M, PHOS3, MG3, CK3 #### [address] [place] #### VD25H #### [facility] [address] [place] [address] Chloride molar conc 99 mmol/L Normal 98-107 [facility] Comment on above: Performed By: #### H EMDF, PT, BMP3M, PHOS3, MG3, CK3 #### [address] #### VD25H #### [facility] [address] [place] [address] Sodium molar conc 139 mmol/L Normal 135-[address] [facility] Comment on above: Performed By: #### H EMDF, PT, BMP3M, PHOS3, MG3, CK3 #### [address] [place], [place] #### VD25H #### [facility] [address] [place] [address] CR Chest Portableon 07-28-19 19 CR Chest Portable Patient Name: KATHYA HOOPER Diagnostic Radiology Exam Date/Time 07/27/2018 07:08:59 EDT Exam CR Chest Portable Ordering Physician MARIA EUGENIA PEREZ Accession Number [id number] CPT4 Codes 74320 () Reason For Exam ETT placement Report INDICATION:Endotrache al tube placement PORTABLE CHEST: COMPARISON: 07/26/2018. Tracheostomy tube unchanged. No pneumothorax. Persistent opacity left base compatible with pleural fluid and underlying atelectasis and or infiltrate. Linear atelectasis in both lungs bilaterally. Slight improved aeration of the left lung since the previous study. IMPRESSION: Slight improved aeration of the left lung. Persistent opacities, compatible with underlying infiltrate, atelectasis and or pleural fluid. Bilateral lower lung atelectasis. Report Dictated on Final Dictated: 07/27/2018 8:02 am Dictating Physician: MD HANEY LAURA Signed Date and Time: 07/27/2018 8:04 am Signed by: MD HANEY LAURA Transcribed Date and Time: 07/27/2018 8:02 Normal [facility] Glucose,Bedsideon 07-27-2018 Glucose mass conc 151 mg/dL High 70-100 [facility] Comment on above: Result Comment: Test performed by glucose meter. Results may be 10%-15% lower than serum/plasma values. (CLIA ID [id number]) Performed By: #### H EMDF, PT, BMP3M, PHOS3, MG3, CK3 #### [facility] [address] [place], [place] #### VD25H #### [facility] [address] [place] [address] Glucose mass conc 131 mg/dL High 70-100 [facility] Comment on above: Result Comment: Test performed by glucose meter. Results may be 10%-15% lower than serum/plasma values. (CLIA ID [id number]) Performed By: #### H EMDF, PT, BMP3M, PHOS3, MG3, CK3 #### [facility] [address] [place], [place] #### VD25H #### [facility] [address] [place] [address] Glucose mass conc 123 mg/dL High 70-100 [facility] Comment on above: Result Comment: Test performed by glucose meter. Results may be 10%-15% lower than serum/plasma values. (CLIA ID [id number]) Performed By: #### H EMDF, PT, BMP3M, PHOS3, MG3, CK3 #### [facility] [address] [place], [place] #### VD25H #### [facility] [address] [place] [address] Glucose mass conc 133 mg/dL High 70-100 [facility] Comment on above: Result Comment: Test performed by glucose meter. Results may be 10%-15% lower than serum/plasma values. (CLIA ID [id number]) Performed By: #### H EMDF, PT, BMP3M, PHOS3, MG3, CK3 #### [address] #### VD25H #### [place] [address] [place] [address] Hemogram w/ Autodiffon 07-27 Erythrocyte distribution width Ratio (RBC) 13.5 % Normal 11.5-14.5 [facility] Comment on above: Performed By: #### H EMDF, PT, BMP3M, PHOS3, MG3, CK3 #### [address] #### VD25H #### [address] [place] [address] Hematocrit Volume Fraction (Bld) 32.5 % Low 40.0-52.0 [facility] Comment on above: Performed By: #### H EMDF, PT, BMP3M, PHOS3, MG3, CK3 #### [address] #### VD25H #### [address] [place] [address] Hemoglobin mass conc (Bld) 11.1 g/dL Low 13.0-18.0 [facility] Comment on above: Performed By: #### H EMDF, PT, BMP3M, PHOS3, MG3, CK3 #### [address] #### VD25H #### [place] [address] [place] [address] MCH Entitic mass (RBC) 29.2 pg Normal 26.0-34.0 [facility] Comment on above: Performed By: #### H EMDF, PT, BMP3M, PHOS3, MG3, CK3 #### [address] #### VD25H #### [facility] [address] [place] [address] MCHC mass conc (RBC) 34.1 % Normal 32.0-36.0 [facility] Comment on above: Performed By: #### H EMDF, PT, BMP3M, PHOS3, MG3, CK3 #### [address] #### VD25H #### [facility] [address] [place] [address] MCV Entitic volume (RBC) 85.7 fL Normal 80.0-98.0 [facility] Comment on above: Performed By: #### H EMDF, PT, BMP3M, PHOS3, MG3, CK3 #### [address] #### VD25H #### [facility] [address] [place] [address] Platelet mean volume Entitic volume (Bld) 7.9 fL Normal 7.4-10.4 [facility] Comment on above: Performed By: #### H EMDF, PT, BMP3M, PHOS3, MG3, CK3 #### [address] #### VD25H #### [facility] [address] [place] [address] Platelets #/vol (Bld) 466 10*3/uL High 140-440 [facility] Comment on above: Performed By: #### H EMDF, PT, BMP3M, PHOS3, MG3, CK3 #### [address] #### VD25H #### [facility] [address] [place] [address] RBC #/vol (Bld) 3.79 10*6/uL Low 4.40-5.90 [facility] Comment on above: Performed By: #### H EMDF, PT, BMP3M, PHOS3, MG3, CK3 #### [facility] [address] [place] #### VD25H #### [facility] [address] [place] [address] WBC #/vol (Bld) 18.7 10*3/uL High 3.6-10.7 [facility] Comment on above: Performed By: #### H EMDF, PT, BMP3M, PHOS3, MG3, CK3 #### [address] #### VD25H #### [facility] [address] [place] [address] Magnesiumon 07-27-2018 Magnesium mass conc 2.1 mg/dL Normal 1.6-2.3 [facility] Comment on above: Performed By: #### H EMDF, PT, BMP3M, PHOS3, MG3, CK3 #### [address] #### VD25H #### [facility] [address] [place] [address] Manual Diffon 07-27-2018 RBC morphology finding Nom (Bld) Normal Normal [facility] Comment on above: Performed By: #### H EMDF, PT, BMP3M, PHOS3, MG3, CK3 #### [address] #### VD25H #### [facility] [address] [place] [address] Abs Neutrophile Cnt 14.2 10*3/uL High 2.2-8.2 [facility] Comment on above: Performed By: #### H EMDF, PT, BMP3M, PHOS3, MG3, CK3 #### [address] #### VD25H #### [facility] [address] [place] [address] Atypical Lymphocytes 2 % Abnormal <1 [facility] Comment on above: Performed By: #### H EMDF, PT, BMP3M, PHOS3, MG3, CK3 #### [facility] [address] [place] #### VD25H #### [facility] [address] [place] [address] Bands 5 % High 0-3 [facility] Comment on above: Performed By: #### H EMDF, PT, BMP3M, PHOS3, MG3, CK3 #### [facility] [address] [place] #### VD25H #### [facility] [address] [place] [address] Eosinophils #/vol (Bld) 0.6 10*3/uL High 0.0-0.5 [facility] Comment on above: Performed By: #### H EMDF, PT, BMP3M, PHOS3, MG3, CK3 #### [facility] [address] [place] #### VD25H #### [facility] [address] [place] [address] Eosinophils/100 WBC (Bld) 3 % Normal 1-6 [facility] Comment on above: Performed By: #### H EMDF, PT, BMP3M, PHOS3, MG3, CK3 #### [facility] [address] [place] #### VD25H #### [facility] [address] [place] [address] Lymphocytes #/vol (Bld) 2.1 10*3/uL Normal 1.1-4.5 [facility] Comment on above: Performed By: #### H EMDF, PT, BMP3M, PHOS3, MG3, CK3 #### [facility] [address] [place] #### VD25H #### [facility] [address] [place] [address] Lymphocytes/100 WBC (Bld) 11 % Low 20-40 [facility] Comment on above: Performed By: #### H EMDF, PT, BMP3M, PHOS3, MG3, CK3 #### [facility] [address] [place] #### VD25H #### [facility] [address] [place] [address] Monocytes #/vol (Bld) 1.5 10*3/uL High 0.2-1.1 [facility] Comment on above: Performed By: #### H EMDF, PT, BMP3M, PHOS3, MG3, CK3 #### [address] [address] [place], [place] #### VD25H #### [facility] [address] [place] [address] Monocytes/100 WBC (Bld) 8 % Normal 2-10 S [facility] Comment on above: Performed By: #### H EMDF, PT, BMP3M, PHOS3, MG3, CK3 #### [address] [place] #### VD25H #### [facility] [address] [place] [address] NRBC 1 /100{WBCs} High -1-0 [facility] Comment on above: Result Comment: Newb orn (<60 days) 1-10 Adult <1 Performed By: #### H EMDF, PT, BMP3M, PHOS3, MG3, CK3 #### [facility] [address] [place] #### VD25H #### [facility] [address] [place] [address] Seg Neutrophils 71 % Normal 40-80 [facility] Comment on above: Performed By: #### H EMDF, PT, BMP3M, PHOS3, MG3, CK3 #### [address] #### VD25H #### [facility] [address] [place] [address] Abs Baso Cnt 0.0 10*3/uL Normal 0.0-0.2 [facility] Comment on above: Performed By: #### H EMDF, PT, BMP3M, PHOS3, MG3, CK3 #### [facility] [address] [place] #### VD25H #### [facility] [address] [place] [address] Basophils/100 WBC (Bld) 0 % Normal 0-2 S [facility] Comment on above: Performed By: #### H EMDF, PT, BMP3M, PHOS3, MG3, CK3 #### [address] [address] [place] #### VD25H #### [facility] [address] [place] [address] Cells counted 100 Normal [facility] Comment on above: Performed By: #### H EMDF, PT, BMP3M, PHOS3, MG3, CK3 #### [facility] [address] [place] #### VD25H #### [facility] [address] [place] [address] Phosphoruson 07-27-2018 Phosphate mass conc 3.0 mg/dL Normal 2.5-4.5 [facility] Comment on above: Performed By: #### H EMDF, PT, BMP3M, PHOS3, MG3, CK3 #### [address] [place] #### VD25H #### [facility] [address] [place] [address] VL Venous Duplex US Lower Ex t Bilateralon 07-27-2018 VL Venous Duplex US Lower Ext Bilateral Patient Name: KATHYA HOOPER Ultrasound Exam Date/Time 07/27/2018 10:56:18 EDT Exam VL Venous Duplex US Lower Ext Bilateral Ordering Physician ETIENNE MARTÍNEZ JULIE Accession Number [id number] CPT4 Codes 34318 () Reason For Exam edema Report [facility] --- Lower Extremity Venous Duplex Report Patient Name: Kathya Hooper : 1955 Study Date: 07/27/2018 W (63yrs) Age: 63 Account: [id number] Gender: M Loc: T209 BP: Ordering: Yesenia Martínez Technologist: Ordering Physician: Yesenia Martínez Metal Burrer: Mary Man RVT Interpreting Physician: Ricardo Hall MD --- Location: [facility] --- INDICATIONS: Bilateral leg edema. --- CONCLUSIONS 1. These findings are negative for deep or superficial vein thrombosis in the bilateral lower extremities. --- IMPRESSIONS: - The superficial and deep systems of the bilateral lower extremities appear to be free of thrombus. - These findings are negative for deep or superficial vein thrombosis in the bilateral lower extremities. --- STUDY DATA: Complete lower extremity venous duplex evaluation. Birthdate: Patient birthdate: 1955. Age: Patient is 63 yr old. Sex: Gender: male. Ethnicity: Ethnicity: white. Doppler flow study including spectral analysis, color and boland scale imaging. Patient status: Inpatient. Procedure: A vascular evaluation was performed. The images were obtained using a Innovate2 E9 vascular ultrasound machine. The study was technically limited due to poor patient cooperation. --- VENOUS FLOW AND IMAGING: + -+-------+ +------- --+ !Location !Overall!Flow properties !Comments ! + -+-------+ +------- --+ !Right common femoral !Patent !Normal phasicity; ! --! ! ! !spontaneous; normal ! ! ! ! !augmentation; ! ! ! ! !compressible ! ! + -+-------+ +------- --+ !Right saphenofemoral !Patent !Compressible ! --! !junction ! ! ! ! + -+-------+ +------- --+ !Right profunda !Patent !Normal phasicity; ! --! !femoral ! !spontaneous; normal ! ! ! ! !augmentation ! ! + -+-------+ +------- --+ !R femoral proximal !Patent !Compressible ! --! + -+-------+ +------- --+ !R femoral mid !Patent !Normal phasicity; ! --! ! ! !spontaneous; normal ! ! ! ! !augmentation; ! ! ! ! !compressible ! ! + -+-------+ +------- --+ !R femoral distal !Patent !Compressible ! --! + -+-------+ +------- --+ !Right popliteal !Patent !Normal phasicity; ! --! ! ! !spontaneous; normal ! ! ! ! !augmentation; ! ! ! ! !compressible ! ! + -+-------+ +------- --+ !Right gastrocnemius !-------! !Unable to visualize ! ! ! ! !due to patient ! ! ! ! !positioning. ! + -+-------+ +------- --+ !Right posterior !Patent !Compressible ! --! !tibial ! ! ! ! + -+-------+ +------- --+ !Right peroneal !Patent !Compressible ! --! + -+-------+ +------- --+ !Right soleal !Patent !Compressible ! --! + -+-------+ +------- --+ !Right greater !Patent !Compressible ! --! !saphenous ! ! ! ! + -+-------+ +------- --+ !Left common femoral !Patent !Normal phasicity; ! --! ! ! !spontaneous; normal ! ! ! ! !augmentation; ! ! ! ! !compressible ! ! + -+-------+ +------- --+ !Left saphenofemoral !Patent !Compressible ! --! !junction ! ! ! ! + -+-------+ +------- --+ !Left profunda femoral!Patent !Normal phasicity; ! --! ! ! !spontaneous; normal ! ! ! ! !augmentation ! ! + -+-------+ +------- --+ !L femoral proximal !Patent !Compressible ! --! + -+-------+ +------- --+ !L femoral mid !Patent !Normal phasicity; ! --! ! ! !spontaneous; normal ! ! ! ! !augmentation; ! ! ! ! !compressible ! ! + -+-------+ +------- --+ !L femoral distal !Patent !Compressible ! --! + -+-------+ +------- --+ !Left popliteal !Patent !Normal phasicity; ! --! ! ! !spontaneous; normal ! ! ! ! !augmentation; ! ! ! ! !compressible ! ! + -+-------+ +------- --+ !Left gastrocnemius !-------! !Unable to visualize ! ! ! ! !due to patient ! ! ! ! !positioning. ! + -+-------+ +------- --+ !Left posterior tibial!Patent !Compressible ! --! + -+-------+ +------- --+ !Left peroneal !Patent !Compressible ! --! + -+-------+ +------- --+ !Left soleal !-------! !Unable to visualize. ! + -+-------+ +------- --+ !Left greater !Patent !Compressible ! --! !saphenous ! ! ! ! + -+-------+ +------- --+ Electronically signed by: Ricardo Hall MD [id number] Final Dictated: 07/27/2018 12:55 pm Dictating Physician: RICARDO HALL Signed Date and Time: 07/27/2018 12:55 pm Signed by: RICARDO HALL [facility] Basic Metabolic Panelon 06-30 Calcium mass conc 7.9 mg/dL Low 8.4-10.[address] [facility] Comment on above: Performed By: #### H EMDF, PT, BMP3M, PHOS3, MG3, CK3 #### [address] [address] [address] [place], [place] #### VD25H #### [facility] [address] [place] [address] Anion gap molar conc 9 Normal [facility] Comment on above: Performed By: #### H EMDF, PT, BMP3M, PHOS3, MG3, CK3 #### [address] #### VD25H #### [facility] [address] [place] [address] CO2 molar conc 24 mmol/L Normal 22-30 [facility] Comment on above: Performed By: #### H EMDF, PT, BMP3M, PHOS3, MG3, CK3 #### [address] [place] #### VD25H #### [facility] [address] [place] [address] Creatinine mass conc 0.54 mg/dL Normal 0.52-1.25 [facility] Comment on above: Performed By: #### H EMDF, PT, BMP3M, PHOS3, MG3, CK3 #### [address] [address] [place], [place] #### VD25H #### [facility] [address] [place] [address] GFR/1.73 sq M predicted among blacks MDRD vol rate/area (S/P/Bld) mL/min/{1.73_m2} Normal >60 [facility] Comment on above: Performed By: #### H EMDF, PT, BMP3M, PHOS3, MG3, CK3 #### [address] #### VD25H #### [facility] [address] [place] [address] GFR/1.73 sq M predicted among non-blacks MDRD vol rate/area (S/P/Bld) mL/min/{1.73_m2} Normal >60 [facility] Comment on above: Result Comment: Sour ce- MDRD equation with creatinine calibration to IDMS(NKDEP) eGFR not recommended for drug dose adjustment Performed By: #### H EMDF, PT, BMP3M, PHOS3, MG3, CK3 #### [facility] [address] [place] #### VD25H #### [facility] [address] [place] [address] Glucose mass conc 166 mg/dL High 70-100 [facility] Comment on above: Performed By: #### H EMDF, PT, BMP3M, PHOS3, MG3, CK3 #### [address] [address] [place], [place] #### VD25H #### [facility] [address] [place] [address] Urea nitrogen mass conc 21 mg/dL High 7-20 S [facility] Comment on above: Performed By: #### H EMDF, PT, BMP3M, PHOS3, MG3, CK3 #### [address] [place] #### VD25H #### [facility] [address] [place] [address] Chloride molar conc 107 mmol/L Normal 98-107 [facility] Comment on above: Performed By: #### H EMDF, PT, BMP3M, PHOS3, MG3, CK3 #### [address] #### VD25H #### [facility] [address] [place] [address] Potassium molar conc 3.7 mmol/L Normal 3.5-5.1 [facility] Comment on above: Performed By: #### H EMDF, PT, BMP3M, PHOS3, MG3, CK3 #### [address] [address] [place] [address] #### VD25H #### [facility] [address] [place] [address] Sodium molar conc 140 mmol/L Normal 135-145 [facility] Comment on above: Performed By: #### H EMDF, PT, BMP3M, PHOS3, MG3, CK3 #### [facility] [address] [place] #### VD25H #### [facility] [address] [place] [address] CR Chest Portableon 07-27-19 19 CR Chest Portable Patient Name: KATHYA HOOPER Diagnostic Radiology Exam Date/Time 07/26/2018 06:06:25 EDT Exam CR Chest Portable Ordering Physician MARIA EUGENIA PEREZ Accession Number [id number] CPT4 Codes 92067 () Reason For Exam ETT placement Report CHEST - PORTABLE: CLINICAL INDICATION: Respiratory distress for follow up TECHNIQUE: Portable AP COMPARISON: One day ago FINDINGS: Life support devices: Tracheostomy tube is again noted Heart/Mediastinum: Unchanged Lungs/Pleura: Consolidation or atelectasis remains in the left lower lobe obscuring the hemidiaphragm and some of the left heart border. No new consolidation is noted on the right. The right costophrenic angle is sharp. IMPRESSION: Persistent opacity in the left lower hemithorax, corresponding to consolidation, atelectasis or pleural fluid Report Dictated on Final Dictated: 07/26/2018 9:15 am Dictating Physician: MD POZO JEFFREY Signed Date and Time: 07/26/2018 9:16 am Signed by: MD POZO JEFFREY Transcribed Date and Time: 07/26/2018 9:15 Normal [facility] Glucose,Bedsideon 07-26-2018 Glucose mass conc 160 mg/dL High 70-100 [facility] Comment on above: Result Comment: Test performed by glucose meter. Results may be 10%-15% lower than serum/plasma values. (CLIA ID [id number]) Performed By: #### H EMDF, PT, BMP3M, PHOS3, MG3, CK3 #### [employer] [facility] [address] [place], [place] #### VD25H #### [facility] [address] [place] [address] Glucose mass conc 166 mg/dL High 70-100 [facility] Comment on above: Result Comment: Test performed by glucose meter. Results may be 10%-15% lower than serum/plasma values. (CLIA ID [id number]) Performed By: #### H EMDF, PT, BMP3M, PHOS3, MG3, CK3 #### [facility] [address] [place] [address] #### VD25H #### [facility] [address] [place] [address] Glucose mass conc 183 mg/dL High 70-100 [facility] Comment on above: Result Comment: Test performed by glucose meter. Results may be 10%-15% lower than serum/plasma values. (CLIA ID [id number]) Performed By: #### H EMDF, PT, BMP3M, PHOS3, MG3, CK3 #### [facility] [address] [place] [address] #### VD25H #### [facility] [address] [place] [address] Glucose mass conc 151 mg/dL High 70-100 [facility] Comment on above: Result Comment: Test performed by glucose meter. Results may be 10%-15% lower than serum/plasma values. (CLIA ID [id number]) Performed By: #### H EMDF, PT, BMP3M, PHOS3, MG3, CK3 #### [facility] [address] [place], [place] #### VD25H #### [employer] [facility] [address] [place] [address] Hemogram w/ Autodiffon 07-26 Erythrocyte distribution width Ratio (RBC) 13.7 % Normal 11.5-14.5 [facility] Comment on above: Performed By: #### H EMDF, PT, BMP3M, PHOS3, MG3, CK3 #### [address] [place], [place] #### VD25H #### [facility] [address] [place] [address] Hematocrit Volume Fraction (Bld) 31.1 % Low 40.0-52.0 [facility] Comment on above: Performed By: #### H EMDF, PT, BMP3M, PHOS3, MG3, CK3 #### [address] [address] #### VD25H #### [facility] [address] [place] [address] Hemoglobin mass conc (Bld) 10.6 g/dL Low 13.0-18.0 [facility] Comment on above: Performed By: #### H EMDF, PT, BMP3M, PHOS3, MG3, CK3 #### [address] #### VD25H #### [facility] [address] [place] [address] MCH Entitic mass (RBC) 29.2 pg Normal 26.0-34.0 [facility] Comment on above: Performed By: #### H EMDF, PT, BMP3M, PHOS3, MG3, CK3 #### [address] #### VD25H #### [facility] [address] [place] [address] MCHC mass conc (RBC) 34.0 % Normal 32.0-36.0 [facility] Comment on above: Performed By: #### H EMDF, PT, BMP3M, PHOS3, MG3, CK3 #### [address] #### VD25H #### [facility] [address] [place] [address] MCV Entitic volume (RBC) 86.1 fL Normal 80.0-98.0 [facility] Comment on above: Performed By: #### H EMDF, PT, BMP3M, PHOS3, MG3, CK3 #### [address] [place], [place] #### VD25H #### [facility] [address] [place] [address] Platelet mean volume Entitic volume (Bld) 8.3 fL Normal 7.4-10.4 [facility] Comment on above: Performed By: #### H EMDF, PT, BMP3M, PHOS3, MG3, CK3 #### [address] #### VD25H #### [facility] [address] [place] [address] Platelets #/vol (Bld) 364 10*3/uL Normal 140-440 [facility] Comment on above: Performed By: #### H EMDF, PT, BMP3M, PHOS3, MG3, CK3 #### [address] [place], [place] #### VD25H #### [facility] [address] [place] [address] RBC #/vol (Bld) 3.62 10*6/uL Low 4.40-5.[address] [facility] Comment on above: Performed By: #### H EMDF, PT, BMP3M, PHOS3, MG3, CK3 #### [address] [place], [place] #### VD25H #### [facility] [address] [place] [address] WBC #/vol (Bld) 15.2 10*3/uL High 3.6-10.[address] [facility] Comment on above: Performed By: #### H EMDF, PT, BMP3M, PHOS3, MG3, CK3 #### [address] #### VD25H #### [facility] [address] [place] [address] Magnesiumon 03-28-2019 Magnesium mass conc 2.0 mg/dL Normal 1.6-2.3 [facility] Comment on above: Performed By: #### H EMDF, PT, BMP3M, PHOS3, MG3, CK3 #### [facility] [address] [place], [place] #### VD25H #### [facility] [address] [place] [address] Manual Diffon 07-26-2018 Abs Neutrophile Cnt 12.8 10*3/uL High 2.2-8.2 [facility] Comment on above: Performed By: #### H EMDF, PT, BMP3M, PHOS3, MG3, CK3 #### [address] #### VD25H #### [facility] [address] [place] [address] Lymphocytes #/vol (Bld) 1.4 10*3/uL Normal 1.1-4.5 [facility] Comment on above: Performed By: #### H EMDF, PT, BMP3M, PHOS3, MG3, CK3 #### [facility] [address] [place], [place] #### VD25H #### [facility] [address] [place] [address] Lymphocytes/100 WBC (Bld) 9 % Low 20-40 [facility] Comment on above: Performed By: #### H EMDF, PT, BMP3M, PHOS3, MG3, CK3 #### [facility] [address] [place], [place] #### VD25H #### [facility] [address] [place] [address] Monocytes #/vol (Bld) 1.1 10*3/uL Normal 0.2-1.1 [facility] Comment on above: Performed By: #### H EMDF, PT, BMP3M, PHOS3, MG3, CK3 #### [address] #### VD25H #### [facility] [address] [place] [address] Monocytes/100 WBC (Bld) 7 % Normal 2-10 S [facility] Comment on above: Performed By: #### H EMDF, PT, BMP3M, PHOS3, MG3, CK3 #### [address] [place], [place] #### VD25H #### [facility] [address] [place] [address] RBC morphology finding Nom (Bld) Normal Normal [facility] Comment on above: Performed By: #### H EMDF, PT, BMP3M, PHOS3, MG3, CK3 #### [address] #### VD25H #### [facility] [address] [place] [address] Seg Neutrophils 84 % High 40-80 [facility] Comment on above: Performed By: #### H EMDF, PT, BMP3M, PHOS3, MG3, CK3 #### [address] #### VD25H #### [facility] [address] [place] [address] Abs Baso Cnt 0.0 10*3/uL Normal 0.0-0.2 [facility] Comment on above: Performed By: #### H EMDF, PT, BMP3M, PHOS3, MG3, CK3 #### [address] [place], [place] #### VD25H #### [facility] [address] [place] [address] Bands 0 % Normal 0-3 [facility] Comment on above: Performed By: #### H EMDF, PT, BMP3M, PHOS3, MG3, CK3 #### [address] #### VD25H #### [facility] [address] [place] [address] Basophils/100 WBC (Bld) 0 % Normal 0-2 S [facility] Comment on above: Performed By: #### H EMDF, PT, BMP3M, PHOS3, MG3, CK3 #### [address] [place], [place] #### VD25H #### [facility] [address] [place] [address] Cells counted 100 Normal [facility] Comment on above: Performed By: #### H EMDF, PT, BMP3M, PHOS3, MG3, CK3 #### [address] #### VD25H #### [facility] [address] [place] [address] Eosinophils #/vol (Bld) 0.0 10*3/uL Normal 0.0-0.5 [facility] Comment on above: Performed By: #### H EMDF, PT, BMP3M, PHOS3, MG3, CK3 #### [address] #### VD25H #### [facility] [address] [place] [address] Eosinophils/100 WBC (Bld) 0 % Low 1-6 [facility] Comment on above: Performed By: #### H EMDF, PT, BMP3M, PHOS3, MG3, CK3 #### [address] #### VD25H #### [facility] [address] [place] [address] Phosphoruson 07-26-2018 Phosphate mass conc 3.1 mg/dL Normal 2.5-4.5 [facility] Comment on above: Performed By: #### H EMDF, PT, BMP3M, PHOS3, MG3, CK3 #### [address] #### VD25H #### [facility] [address] [place] [address] Vancomycin Troughon 07-27-19 19 Vancomycin Trough 8.9 ug/mL Low 15.0-20.0 [facility] Comment on above: Result Comment: . Performed By: #### H EMDF, PT, BMP3M, PHOS3, MG3, CK3 #### [facility] [address] [place] #### VD25H #### [facility] [address] [place] [address] Arterial Blood Gaseson 07-25 CO2 molar conc 22.0 mmol/L Low 23.0-27.0 [facility] Comment on above: Performed By: #### H EMDF, PT, BMP3M, PHOS3, MG3, CK3 #### [address] #### VD25H #### [facility] [address] [place] [address] HCO3 molar conc (Bld) 21.1 mmol/L Normal 21.0-25.0 [facility] Comment on above: Performed By: #### H EMDF, PT, BMP3M, PHOS3, MG3, CK3 #### [address] #### VD25H #### [facility] [address] [place] [address] Hemoglobin mass conc (Bld) 10.1 g/dL Normal ScreenOnly [facility] Comment on above: Performed By: #### H EMDF, PT, BMP3M, PHOS3, MG3, CK3 #### [address] #### VD25H #### [facility] [address] [place] [address] Oxygen ppres (Bld) 88.3 mm[Hg] Normal 80.0-100.0 [facility] Comment on above: Performed By: #### H EMDF, PT, BMP3M, PHOS3, MG3, CK3 #### [address] #### VD25H #### [facility] [address] [place] [address] Oxygen saturation in Blood 96.8 % Normal 95.0-100.0 [facility] Comment on above: Performed By: #### H EMDF, PT, BMP3M, PHOS3, MG3, CK3 #### [address] [place], [place] #### VD25H #### [facility] [address] [place] [address] pCO2 29.9 mm[Hg] Low 35.0-45.0 [facility] Comment on above: Performed By: #### H EMDF, PT, BMP3M, PHOS3, MG3, CK3 #### [address] #### VD25H #### [address] [place] [address] [place] [address] pH (Bld) 7.467 High 7.350-7.450 [facility] Comment on above: Performed By: #### H EMDF, PT, BMP3M, PHOS3, MG3, CK3 #### [address] #### VD25H #### [facility] [address] [place] [address] Std Base Excess -1.9 mmol/L Normal -3.0-3.0 [facility] Comment on above: Performed By: #### H EMDF, PT, BMP3M, PHOS3, MG3, CK3 #### [address] [place], [place] #### VD25H #### [facility] [address] [place] [address] FIO2 .30 Normal [facility] Comment on above: Performed By: #### H EMDF, PT, BMP3M, PHOS3, MG3, CK3 #### [address] #### VD25H #### [place] [address] [place] [address] Basic Metabolic Panelon 03-2 Calcium mass conc 8.1 mg/dL Low 8.4-10.[address] [facility] Comment on above: Performed By: #### H EMDF, PT, BMP3M, PHOS3, MG3, CK3 #### [address] #### VD25H #### [facility] [address] [place] [address] Anion gap molar conc 8 Normal [facility] Comment on above: Performed By: #### H EMDF, PT, BMP3M, PHOS3, MG3, CK3 #### [address] #### VD25H #### [place] [address] [place] [address] CO2 molar conc 24 mmol/L Normal 22-30 [facility] Comment on above: Performed By: #### H EMDF, PT, BMP3M, PHOS3, MG3, CK3 #### [address] #### VD25H #### [place] [address] [place] [address] Creatinine mass conc 0.55 mg/dL Normal 0.52-1.25 [facility] Comment on above: Performed By: #### H EMDF, PT, BMP3M, PHOS3, MG3, CK3 #### [address] #### VD25H #### [place] [address] [place] [address] GFR/1.73 sq M predicted among blacks MDRD vol rate/area (S/P/Bld) mL/min/{1.73_m2} Normal >60 [facility] Comment on above: Performed By: #### H EMDF, PT, BMP3M, PHOS3, MG3, CK3 #### [address] [address] #### VD25H #### [facility] [address] [place] [address] GFR/1.73 sq M predicted among non-blacks MDRD vol rate/area (S/P/Bld) mL/min/{1.73_m2} Normal >60 [facility] Comment on above: Result Comment: Sour ce- MDRD equation with creatinine calibration to IDMS(NKDEP) eGFR not recommended for drug dose adjustment Performed By: #### H EMDF, PT, BMP3M, PHOS3, MG3, CK3 #### [address] [place], [place] #### VD25H #### [facility] [address] [place] [address] Glucose mass conc 184 mg/dL High 70-100 [facility] Comment on above: Performed By: #### H EMDF, PT, BMP3M, PHOS3, MG3, CK3 #### [address] #### VD25H #### [facility] [address] [place] [address] Urea nitrogen mass conc 20 mg/dL Normal 7-20 S [facility] Comment on above: Performed By: #### H EMDF, PT, BMP3M, PHOS3, MG3, CK3 #### [address] #### VD25H #### [facility] [address] [place] [address] Chloride molar conc 109 mmol/L High 98-107 [facility] Comment on above: Performed By: #### H EMDF, PT, BMP3M, PHOS3, MG3, CK3 #### [address] #### VD25H #### [facility] [address] [place] [address] Potassium molar conc 4.0 mmol/L Normal 3.5-5.1 [facility] Comment on above: Performed By: #### H EMDF, PT, BMP3M, PHOS3, MG3, CK3 #### [facility] [address] [place] [address] #### VD25H #### [facility] [address] [place] [address] Sodium molar conc 141 mmol/L Normal 135-[address] [facility] Comment on above: Performed By: #### H EMDF, PT, BMP3M, PHOS3, MG3, CK3 #### [facility] [address] [facility] [place] [address] #### VD25H #### [facility] [address] [place] [address] CR Chest Portableon 07-26-19 19 CR Chest Portable Patient Name: KATHYA HOOPER Diagnostic Radiology Exam Date/Time 07/25/2018 06:39:42 EDT Exam CR Chest Portable Ordering Physician MARIA EUGENIA PEREZ Accession Number [id number] CPT4 Codes 28047 () Reason For Exam ETT placement Report Portable chest 07/25/2018: Clinical Information: Tracheostomy tube placement. Findings: A single AP portable view of the chest was obtained at 613 hours. Comparison was made to the prior study prior day . The tracheostomy tube and and left-sided PICC line are unchanged. There is increased density behind the heart on the left consistent with left lower lobe atelectasis, effusion or infiltrate. There is also layering of a left pleural effusion. The remaining lung bauer are clear. Report Dictated on Final Dictated: 07/25/2018 7:45 am Dictating Physician: MD JOHNSON RISA Signed Date and Time: 07/25/2018 7:46 am Signed by: MD JOHNSON RISA Transcribed Date and Time: 07/25/2018 7:45 Normal [facility] CULTURE URINEon 07-25-2018 CULTURE URINE 1 Organism Klebsiell a pneumoniae >100,000 CFU/ml 1 Organism Antibiotic Result Intrp Amikacin(CHRISTI) <= 2 S Amoxicillin/Clavulani c Acid(CHRISTI) <= 2 S Ampicillin(CHRISTI) R Ampicillin/Sulbactam( CHRISTI) = 8 S Aztreonam(CHRISTI) <= 1 S Cefazolin(CHRISTI) <= 4 S Cefepime(CHRISTI) <= 1 S Ceftriaxone(CHRISTI) <= 1 S Ciprofloxacin(CHRISTI) <= 0.25 S Ertapenem(CHRISTI) <= 0.5 S Gentamicin(CHRISTI) <= 1 S Levofloxacin(CHRISTI) <= 0.12 S Meropenem(CHRISTI) <= 0.25 S Nitrofurantoin(CHRISTI) = 32 S Pip/Tazobactam(CHRISTI) <= 4 S Trimeth/Sulfa(CHRISTI) <= 20 S Normal AF83 [facility] Comment on above: Order Comment: Speci men Source Comment:Urine, clean catch Performed By: #### H EMDF, PT, BMP3M, PHOS3, MG3, CK3 #### [facility] [address] [place] [address] #### VD25H #### [facility] [address] [place] [address] Glucose,Bedsideon 07-25-2018 Glucose mass conc 140 mg/dL High 70-100 [facility] Comment on above: Result Comment: Test performed by glucose meter. Results may be 10%-15% lower than serum/plasma values. (CLIA ID [id number]) Performed By: #### H EMDF, PT, BMP3M, PHOS3, MG3, CK3 #### [facility] [address] [place] [id number] #### VD25H #### [facility] [address] [place] [address] Glucose mass conc 158 mg/dL High 70-100 [facility] Comment on above: Result Comment: Test performed by glucose meter. Results may be 10%-15% lower than serum/plasma values. (CLIA ID [id number]) Performed By: #### H EMDF, PT, BMP3M, PHOS3, MG3, CK3 #### [facility] [address] [place] [address] #### VD25H #### [facility] [address] [place] [address] Glucose mass conc 172 mg/dL High 70-100 [facility] Comment on above: Result Comment: Test performed by glucose meter. Results may be 10%-15% lower than serum/plasma values. (CLIA ID [id number]) Performed By: #### H EMDF, PT, BMP3M, PHOS3, MG3, CK3 #### [facility] [address] [place], [place] #### VD25H #### [facility] [address] [place] [address] Glucose mass conc 169 mg/dL High 70-100 [facility] Comment on above: Result Comment: Test performed by glucose meter. Results may be 10%-15% lower than serum/plasma values. (CLIA ID [id number]) Performed By: #### H EMDF, PT, BMP3M, PHOS3, MG3, CK3 #### [facility] [address] [place] [address] #### VD25H #### [facility] [address] [place] [address] Glucose mass conc 165 mg/dL High 70-100 [facility] Comment on above: Result Comment: Test performed by glucose meter. Results may be 10%-15% lower than serum/plasma values. (CLIA ID [id number]) Performed By: #### H EMDF, PT, BMP3M, PHOS3, MG3, CK3 #### [address] [place], [place] #### VD25H #### [facility] [address] [place] [address] Hemogram w/ Autodiffon 07-25 Erythrocyte distribution width Ratio (RBC) 13.6 % Normal 11.5-14.5 [facility] Comment on above: Performed By: #### H EMDF, PT, BMP3M, PHOS3, MG3, CK3 #### [address] #### VD25H #### [facility] [address] [place] [address] Hematocrit Volume Fraction (Bld) 31.3 % Low 40.0-52.0 [facility] Comment on above: Performed By: #### H EMDF, PT, BMP3M, PHOS3, MG3, CK3 #### [address] #### VD25H #### [facility] [address] [place] [address] Hemoglobin mass conc (Bld) 10.6 g/dL Low 13.0-18.0 [facility] Comment on above: Performed By: #### H EMDF, PT, BMP3M, PHOS3, MG3, CK3 #### [address] #### VD25H #### [facility] [address] [place] [address] MCH Entitic mass (RBC) 29.4 pg Normal 26.0-34.0 [facility] Comment on above: Performed By: #### H EMDF, PT, BMP3M, PHOS3, MG3, CK3 #### [address] #### VD25H #### [facility] [address] [place] [address] MCHC mass conc (RBC) 33.8 % Normal 32.0-36.0 [facility] Comment on above: Performed By: #### H EMDF, PT, BMP3M, PHOS3, MG3, CK3 #### [address] [place], [place] #### VD25H #### [facility] [address] [place] [address] MCV Entitic volume (RBC) 86.9 fL Normal 80.0-98.0 [facility] Comment on above: Performed By: #### H EMDF, PT, BMP3M, PHOS3, MG3, CK3 #### [address] [place] #### VD25H #### [facility] [address] [place] [address] Platelet mean volume Entitic volume (Bld) 8.3 fL Normal 7.4-10.4 [facility] Comment on above: Performed By: #### H EMDF, PT, BMP3M, PHOS3, MG3, CK3 #### [address] [place], [place] #### VD25H #### [facility] [address] [place] [address] Platelets #/vol (Bld) 360 10*3/uL Normal 140-440 [facility] Comment on above: Performed By: #### H EMDF, PT, BMP3M, PHOS3, MG3, CK3 #### [address] [address] [place] #### VD25H #### [facility] [address] [place] [address] RBC #/vol (Bld) 3.61 10*6/uL Low 4.40-5.[address] [facility] Comment on above: Performed By: #### H EMDF, PT, BMP3M, PHOS3, MG3, CK3 #### [address] #### VD25H #### [facility] [address] [place] [address] WBC #/vol (Bld) 14.7 10*3/uL High 3.6-10.[address] [facility] Comment on above: Performed By: #### H EMDF, PT, BMP3M, PHOS3, MG3, CK3 #### [facility] [address] [place] #### VD25H #### [facility] [address] [place] [address] Magnesiumon 07-25-2018 Magnesium mass conc 2.1 mg/dL Normal 1.6-2.3 [facility] Comment on above: Performed By: #### H EMDF, PT, BMP3M, PHOS3, MG3, CK3 #### [address] #### VD25H #### [place] [address] [place] [address] Manual Diffon 07-25-2018 Abs Baso Cnt 0.1 10*3/uL Normal 0.0-0.2 [facility] Comment on above: Performed By: #### H EMDF, PT, BMP3M, PHOS3, MG3, CK3 #### [address] #### VD25H #### [facility] [address] [place] Abs Neutrophile Cnt 12.9 10*3/uL High 2.2-8.2 [facility] Comment on above: Performed By: #### H EMDF, PT, BMP3M, PHOS3, MG3, CK3 #### [address] #### VD25H #### [facility] [address] [place] [address] Anisocytosis Ql (Bld) Slight Normal [facility] Comment on above: Performed By: #### H EMDF, PT, BMP3M, PHOS3, MG3, CK3 #### [address] #### VD25H #### [facility] [address] [place] [address] Bands 4 % High 0-3 [facility] Comment on above: Performed By: #### H EMDF, PT, BMP3M, PHOS3, MG3, CK3 #### [facility] [address] [place] #### VD25H #### [facility] [address] [place] [address] Basophils/100 WBC (Bld) 1 % Normal 0-2 S [facility] Comment on above: Performed By: #### H EMDF, PT, BMP3M, PHOS3, MG3, CK3 #### [address] [place], [place] #### VD25H #### [facility] [address] [place] [address] Eosinophils #/vol (Bld) 0.6 10*3/uL High 0.0-0.5 [facility] Comment on above: Performed By: #### H EMDF, PT, BMP3M, PHOS3, MG3, CK3 #### [address] [place] #### VD25H #### [facility] [address] [place] [address] Eosinophils/100 WBC (Bld) 4 % Normal 1-6 [facility] Comment on above: Performed By: #### H EMDF, PT, BMP3M, PHOS3, MG3, CK3 #### [address] [place] #### VD25H #### [facility] [address] [place] [address] Lymphocytes #/vol (Bld) 0.1 10*3/uL Low 1.1-4.5 [facility] Comment on above: Performed By: #### H EMDF, PT, BMP3M, PHOS3, MG3, CK3 #### [address] [place] #### VD25H #### [facility] [address] [place] [address] Lymphocytes/100 WBC (Bld) 1 % Low 20-40 [facility] Comment on above: Performed By: #### H EMDF, PT, BMP3M, PHOS3, MG3, CK3 #### [address] [place] #### VD25H #### [facility] [address] [place] [address] Macrocytosis Slight Normal [facility] Comment on above: Performed By: #### H EMDF, PT, BMP3M, PHOS3, MG3, CK3 #### [address] #### VD25H #### [facility] [address] [place] [address] Metamyelocytes 2 % Abnormal <1 [facility] Comment on above: Performed By: #### H EMDF, PT, BMP3M, PHOS3, MG3, CK3 #### [address] [place] #### VD25H #### [facility] [address] [place] [address] Microcytosis Slight Normal [facility] Comment on above: Performed By: #### H EMDF, PT, BMP3M, PHOS3, MG3, CK3 #### [address] #### VD25H #### [facility] [address] [place] [address] Monocytes #/vol (Bld) 0.6 10*3/uL Normal 0.2-1.1 [facility] Comment on above: Performed By: #### H EMDF, PT, BMP3M, PHOS3, MG3, CK3 #### [address] [place] #### VD25H #### [facility] [address] [place] [address] Monocytes/100 WBC (Bld) 4 % Normal 2-10 S [facility] Comment on above: Performed By: #### H EMDF, PT, BMP3M, PHOS3, MG3, CK3 #### [facility] [address] [place] #### VD25H #### [facility] [address] [place] [address] RBC morphology finding Nom (Bld) ABNORMAL Normal [facility] Comment on above: Performed By: #### H EMDF, PT, BMP3M, PHOS3, MG3, CK3 #### [facility] [address] [place] #### VD25H #### [facility] [address] [place] [address] Seg Neutrophils 84 % High 40-80 [facility] Comment on above: Performed By: #### H EMDF, PT, BMP3M, PHOS3, MG3, CK3 #### [address] [address] [place] #### VD25H #### [facility] [address] [place] [address] Cells counted 100 Normal [facility] Comment on above: Performed By: #### H EMDF, PT, BMP3M, PHOS3, MG3, CK3 #### [address] [place] #### VD25H #### [facility] [address] [place] [address] Phosphoruson 07-25-2018 Phosphate mass conc 2.7 mg/dL Normal 2.5-4.5 [facility] Comment on above: Performed By: #### H EMDF, PT, BMP3M, PHOS3, MG3, CK3 #### [address] [place] #### VD25H #### [facility] [address] [place] [address] Triglycerideon 07-25-2018 Triglyceride mass conc 82 mg/dL Normal <150 [facility] Comment on above: Performed By: #### H EMDF, PT, BMP3M, PHOS3, MG3, CK3 #### [address] [place], [place] #### VD25H #### [facility] [address] [place] [address] Basic Metabolic Panelon 03-2 Calcium mass conc 8.0 mg/dL Low 8.4-10.[address] [facility] Comment on above: Performed By: #### H EMDF, PT, BMP3M, PHOS3, MG3, CK3 #### [address] [place] #### VD25H #### [facility] [address] [place] [address] Anion gap molar conc 9 Normal [facility] Comment on above: Performed By: #### H EMDF, PT, BMP3M, PHOS3, MG3, CK3 #### [address] #### VD25H #### [place] [address] [place] [address] CO2 molar conc 23 mmol/L Normal 22-30 [facility] Comment on above: Performed By: #### H EMDF, PT, BMP3M, PHOS3, MG3, CK3 #### [address] #### VD25H #### [facility] [address] [place] [address] Creatinine mass conc 0.71 mg/dL Normal 0.52-1.25 [facility] Comment on above: Performed By: #### H EMDF, PT, BMP3M, PHOS3, MG3, CK3 #### [address] #### VD25H #### [place] [address] [place] [address] GFR/1.73 sq M predicted among blacks MDRD vol rate/area (S/P/Bld) mL/min/{1.73_m2} Normal >60 [facility] Comment on above: Performed By: #### H EMDF, PT, BMP3M, PHOS3, MG3, CK3 #### [facility] [address] [facility], [place] #### VD25H #### [facility] [address] [place] [address] GFR/1.73 sq M predicted among non-blacks MDRD vol rate/area (S/P/Bld) mL/min/{1.73_m2} Normal >60 [facility] Comment on above: Result Comment: Sour ce- MDRD equation with creatinine calibration to IDMS(NKDEP) eGFR not recommended for drug dose adjustment Performed By: #### H EMDF, PT, BMP3M, PHOS3, MG3, CK3 #### [place] [address] [address] [facility], [place] #### VD25H #### [facility] [address] [place] [address] Glucose mass conc 160 mg/dL High 70-100 [facility] Comment on above: Performed By: #### H EMDF, PT, BMP3M, PHOS3, MG3, CK3 #### [place] [address] [address] [facility], [place] #### VD25H #### [facility] [address] [place] [address] Urea nitrogen mass conc 28 mg/dL High 7-20 S [facility] Comment on above: Performed By: #### H EMDF, PT, BMP3M, PHOS3, MG3, CK3 #### [facility] [address] [facility] [place] #### VD25H #### [facility] [address] [place] [address] Chloride molar conc 109 mmol/L High 98-107 [facility] Comment on above: Performed By: #### H EMDF, PT, BMP3M, PHOS3, MG3, CK3 #### [facility] [address] [facility] [place] #### VD25H #### [facility] [address] [place] [address] Potassium molar conc 3.7 mmol/L Normal 3.5-5.1 [facility] Comment on above: Performed By: #### H EMDF, PT, BMP3M, PHOS3, MG3, CK3 #### [facility] [address] [place] [address] #### VD25H #### [facility] [address] [place] [address] Sodium molar conc 141 mmol/L Normal 135-[address] [facility] Comment on above: Performed By: #### H EMDF, PT, BMP3M, PHOS3, MG3, CK3 #### [facility] [address] [place] [address] #### VD25H #### [facility] [address] [place] [address] CR Chest Portableon 07-25-19 19 CR Chest Portable Patient Name: KATHYA HOOPER Diagnostic Radiology Exam Date/Time 07/24/2018 13:12:47 EDT Exam CR Chest Portable Ordering Physician DO WOLFF KATHRYN C Accession Number [id number] CPT4 Codes 92644 () Reason For Exam line placement Report PORTABLE CHEST: INDICATION: PICC line placement COMPARISON: Compared to a prior study performed earlier today at 0529 hours Obtained at 1248 hours. A single portable AP radiograph of the chest was obtained with a low-level of inspiration. The heart is normal in size. The mediastinal silhouette is normal. There is pulmonary congestion with bilateral infiltrates, more pronounced on the left. Blunting of the costophrenic angles is consistent with small bilateral effusions. There is biapical pleural thickening. Arthritic changes of the spine and shoulders are present. The tracheostomy catheter is unchanged. IMPRESSION: Low inspiration chest. Pulmonary congestion with bilateral effusions and infiltrates, left greater than right. Report Dictated on Final Dictated: 07/24/2018 3:10 pm Dictating Physician: DO FUCHS ALFRED Signed Date and Time: 07/24/2018 3:16 pm Signed by: DO FUCHS ALFRED Transcribed Date and Time: 07/24/2018 3:10 Normal [facility] CR Chest Portable Patient Name: KATHYA HOOPER Diagnostic Radiology Exam Date/Time 07/24/2018 07:11:26 EDT Exam CR Chest Portable Ordering Physician MARIA EUGENIA PEREZ Accession Number [id number] CPT4 Codes 77189 () Reason For Exam ETT placement Report CHEST (Frontal View) History: Respiratory abnormality Comparison: 06/25/2018 Findings: Frontal portable chest view shows left basilar atelectasis/infiltrat e and small pleural effusion, not significantly changed from the prior exam. There is smaller linear right basilar atelectasis. Both lungs show mild congestion with interstitial prominence. The heart is borderline in size. Tip of left-sided PICC line project at the right atrium. Tracheostomy tube and surgical hardware at the visualized cervical spine are again noted. There is no mediastinal widening or other significant interval change. Report Dictated on Final Dictated: 07/24/2018 7:31 am Dictating Physician: MD EDGAR, NIR Signed Date and Time: 07/24/2018 7:33 am Signed by: MD CANCINO AHMAD Transcribed Date and Time: 07/24/2018 7:31 Normal [facility] CULT./ST. RESPIRATORYon 06-30 CULT./ST. RESPIRATORY CULT./ST. RESPIRAT ORY --> Status: F No growth of normal respiratory elizabeth. STAIN GRAM --> Status: F Many polymorphonuclear cells/lpf. Many gram positive bacilli. Many gram positive bacilli. 1 Organism Corynebacterium species Many Corynebacterium striatum Possible identification 2 Organism Klebsiella pneumoniae Few 1 Organism Antibiotic Result Intrp Ceftriaxone(BP) > 32 R Penicillin-G(BP) > 32 R Vancomycin(BP) = 0.50 S 2 Organism Antibiotic Result Intrp Amikacin(CHRISTI) <= 2 S Amoxicillin/Clavulani c Acid(CHRISTI) <= 2 S Ampicillin(CHRISTI) R Ampicillin/Sulbactam( CHRISTI) = 4 S Aztreonam(CHRISTI) <= 1 S Cefazolin(CHRISTI) <= 4 S Cefepime(CHRISTI) <= 1 S Ceftriaxone(CHRISTI) <= 1 S Ciprofloxacin(CHRISTI) <= 0.25 S Ertapenem(CHRISTI) <= 0.5 S Gentamicin(CHRISTI) <= 1 S Levofloxacin(CHRISTI) <= 0.12 S Meropenem(CHRISTI) <= 0.25 S Pip/Tazobactam(CHRISTI) <= 4 S Tetracycline(CHRISTI) <= 1 S Trimeth/Sulfa(CHRISTI) <= 20 S Normal [facility] Comment on above: Order Comment: Speci men Source Comment:Endotracheal Performed By: #### H EMDF, PT, BMP3M, PHOS3, MG3, CK3 #### [employer] [facility] [address] [place] [id number] #### VD25H #### [facility] [address] [place] [address] CULTURE URINEon 07-24-2018 CULTURE URINE 1 Organism Klebsiell a pneumoniae >100,000 CFU/ml 2 Organism Escherichia coli >100,000 CFU/ml 1 Organism Antibiotic Result Intrp Amikacin(CHRISTI) <= 2 S Amoxicillin/Clavulani c Acid(CHRISTI) <= 2 S Ampicillin(CHRISTI) R Ampicillin/Sulbactam( CHRISTI) = 8 S Aztreonam(CHRISTI) <= 1 S Cefazolin(CHRISTI) <= 4 S Cefepime(CHRISTI) <= 1 S Ceftriaxone(CHRISTI) <= 1 S Ciprofloxacin(CHRISTI) <= 0.25 S Ertapenem(CHRISTI) <= 0.5 S Gentamicin(CHRISTI) <= 1 S Levofloxacin(CHRISTI) <= 0.12 S Meropenem(CHRISTI) <= 0.25 S Nitrofurantoin(CHRISTI) = 32 S Pip/Tazobactam(CHRISTI) <= 4 S Trimeth/Sulfa(CHRISTI) <= 20 S 2 Organism Antibiotic Result Intrp Amikacin(CHRISTI) <= 2 S Amoxicillin/Clavulani c Acid(CHRISTI) = 16 I Ampicillin(CHRISTI) >= 32 R Ampicillin/Sulbactam( CHRISTI) = 16 I Aztreonam(CHRISTI) <= 1 S Cefazolin(CHRISTI) <= 4 S Cefepime(CHRISTI) <= 1 S Ceftriaxone(CHRISTI) <= 1 S Ciprofloxacin(CHRISTI) <= 0.25 S Ertapenem(CHRISTI) <= 0.5 S Gentamicin(CHRISTI) <= 1 S Levofloxacin(CHRISTI) <= 0.12 S Meropenem(CHRISTI) <= 0.25 S Nitrofurantoin(CHRISTI) <= 16 S Pip/Tazobactam(CHRISTI) <= 4 S Trimeth/Sulfa(CHRISTI) <= 20 S Normal [facility] Comment on above: Order Comment: Speci men Source Comment:Urine, clean catch Performed By: #### H EMDF, PT, BMP3M, PHOS3, MG3, CK3 #### [facility] [employer] [facility] [address] [place] [address] #### VD25H #### [facility] [employer] [facility] [address] [place] [address] Creatinine, Ur Randomon 06-30 Creatinine, Ur Random 49.5 mg/dL Normal No Range [facility] Comment on above: Performed By: #### H EMDF, PT, BMP3M, PHOS3, MG3, CK3 #### [facility] [employer] [facility] [address] [place] [address] #### VD25H #### [facility] [employer] [facility] [address] [place] [address] Glucose,Bedsideon 07-24-2018 Glucose mass conc 124 mg/dL High 70-100 [facility] Comment on above: Result Comment: Test performed by glucose meter. Results may be 10%-15% lower than serum/plasma values. (CLIA ID [id number]) Performed By: #### H EMDF, PT, BMP3M, PHOS3, MG3, CK3 #### [facility] [facility] [address] [place] [address] #### VD25H #### [employer] [address] [place] [address] Glucose mass conc 152 mg/dL High 70-100 [facility] Comment on above: Result Comment: Test performed by glucose meter. Results may be 10%-15% lower than serum/plasma values. (CLIA ID [id number]) Performed By: #### H EMDF, PT, BMP3M, PHOS3, MG3, CK3 #### [employer] [address] [place] [address] #### VD25H #### [employer] [facility] [address] [place] [address] Glucose mass conc 149 mg/dL High 70-100 [facility] Comment on above: Result Comment: Test performed by glucose meter. Results may be 10%-15% lower than serum/plasma values. (CLIA ID [id number]) Performed By: #### H EMDF, PT, BMP3M, PHOS3, MG3, CK3 #### [facility] [address] [place] [address] #### VD25H #### [employer] [facility] [address] [place] [address] Hemogram w/ Autodiffon 07-24 Erythrocyte distribution width Ratio (RBC) 13.7 % Normal 11.5-14.5 [facility] [employer] Comment on above: Performed By: #### H EMDF, PT, BMP3M, PHOS3, MG3, CK3 #### [employer] [address] #### VD25H #### [employer] [facility] [address] [place] [address] Hematocrit Volume Fraction (Bld) 31.4 % Low 40.0-52.0 [facility] [employer] [facility] Comment on above: Performed By: #### H EMDF, PT, BMP3M, PHOS3, MG3, CK3 #### [address] #### VD25H #### [facility] [address] [place] [address] Hemoglobin mass conc (Bld) 10.7 g/dL Low 13.0-18.0 [facility] Comment on above: Performed By: #### H EMDF, PT, BMP3M, PHOS3, MG3, CK3 #### [address] #### VD25H #### [facility] [address] [place] [address] MCH Entitic mass (RBC) 29.4 pg Normal 26.0-34.0 [facility] Comment on above: Performed By: #### H EMDF, PT, BMP3M, PHOS3, MG3, CK3 #### [address] #### VD25H #### [facility] [address] [place] [address] MCHC mass conc (RBC) 33.9 % Normal 32.0-36.0 [facility] Comment on above: Performed By: #### H EMDF, PT, BMP3M, PHOS3, MG3, CK3 #### [address] #### VD25H #### [facility] [address] [place] [address] MCV Entitic volume (RBC) 86.8 fL Normal 80.0-98.0 [facility] Comment on above: Performed By: #### H EMDF, PT, BMP3M, PHOS3, MG3, CK3 #### [address] #### VD25H #### [facility] [address] [place] [address] Platelet mean volume Entitic volume (Bld) 8.6 fL Normal 7.4-10.4 [facility] Comment on above: Performed By: #### H EMDF, PT, BMP3M, PHOS3, MG3, CK3 #### [facility] [address] [place], [place] #### VD25H #### [facility] [address] [place] [address] Platelets #/vol (Bld) 304 10*3/uL Normal 140-440 [facility] Comment on above: Performed By: #### H EMDF, PT, BMP3M, PHOS3, MG3, CK3 #### [place] [address] [address] [place], [place] #### VD25H #### [facility] [address] [place] [address] RBC #/vol (Bld) 3.62 10*6/uL Low 4.40-5.[address] [facility] Comment on above: Performed By: #### H EMDF, PT, BMP3M, PHOS3, MG3, CK3 #### [address] [place], [place] #### VD25H #### [facility] [address] [place] [address] WBC #/vol (Bld) 14.0 10*3/uL High 3.6-10.[address] [facility] Comment on above: Performed By: #### H EMDF, PT, BMP3M, PHOS3, MG3, CK3 #### [place] [address] [address] [place], [place] #### VD25H #### [facility] [address] [place] [address] Magnesiumon 07-24-2018 Magnesium mass conc 2.2 mg/dL Normal 1.6-2.3 [facility] Comment on above: Performed By: #### H EMDF, PT, BMP3M, PHOS3, MG3, CK3 #### [address] #### VD25H #### [facility] [address] [place] [address] Manual Diffon 07-24-2018 Abs Baso Cnt 0.0 10*3/uL Normal 0.0-0.2 [facility] Comment on above: Performed By: #### H EMDF, PT, BMP3M, PHOS3, MG3, CK3 #### [facility] [address] [place], [place] #### VD25H #### [facility] [address] [place] [address] Abs Neutrophile Cnt 12.2 10*3/uL High 2.2-8.2 [facility] Comment on above: Performed By: #### H EMDF, PT, BMP3M, PHOS3, MG3, CK3 #### [address] #### VD25H #### [facility] [address] [place] [address] Eosinophils #/vol (Bld) 0.4 10*3/uL Normal 0.0-0.5 [facility] Comment on above: Performed By: #### H EMDF, PT, BMP3M, PHOS3, MG3, CK3 #### [address] #### VD25H #### [facility] [address] [place] [address] Eosinophils/100 WBC (Bld) 3 % Normal 1-6 [facility] Comment on above: Performed By: #### H EMDF, PT, BMP3M, PHOS3, MG3, CK3 #### [address] #### VD25H #### [facility] [address] [place] [address] Lymphocytes #/vol (Bld) 1.0 10*3/uL Low 1.1-4.5 [facility] Comment on above: Performed By: #### H EMDF, PT, BMP3M, PHOS3, MG3, CK3 #### [address] #### VD25H #### [facility] [address] [place] [address] Lymphocytes/100 WBC (Bld) 7 % Low 20-40 [facility] Comment on above: Performed By: #### H EMDF, PT, BMP3M, PHOS3, MG3, CK3 #### [place] [address] [address] [place], [place] #### VD25H #### [facility] [address] [place] [address] Monocytes #/vol (Bld) 0.4 10*3/uL Normal 0.2-1.1 [facility] Comment on above: Performed By: #### H EMDF, PT, BMP3M, PHOS3, MG3, CK3 #### [address] #### VD25H #### [place] [address] [place] [address] Monocytes/100 WBC (Bld) 3 % Normal 2-10 S [facility] Comment on above: Performed By: #### H EMDF, PT, BMP3M, PHOS3, MG3, CK3 #### [address] #### VD25H #### [facility] [address] [place] [address] RBC morphology finding Nom (Bld) Normal Normal [facility] Comment on above: Performed By: #### H EMDF, PT, BMP3M, PHOS3, MG3, CK3 #### [address] #### VD25H #### [facility] [address] [place] [address] Seg Neutrophils 87 % High 40-80 [facility] Comment on above: Performed By: #### H EMDF, PT, BMP3M, PHOS3, MG3, CK3 #### [place] [address] [place] #### VD25H #### [place] [address] [place] [address] Bands 0 % Normal 0-3 [facility] Comment on above: Performed By: #### H EMDF, PT, BMP3M, PHOS3, MG3, CK3 #### [facility] [address] [place] #### VD25H #### [facility] [address] [place] [address] Basophils/100 WBC (Bld) 0 % Normal 0-2 S [facility] Comment on above: Performed By: #### H EMDF, PT, BMP3M, PHOS3, MG3, CK3 #### [place] [address] [address] [place], [place] #### VD25H #### [facility] [address] [place] [address] Cells counted 100 Normal [facility] Comment on above: Performed By: #### H EMDF, PT, BMP3M, PHOS3, MG3, CK3 #### [place] [address] [address] [place], [place] #### VD25H #### [facility] [address] [place] [address] Phosphoruson 07-24-2018 Phosphate mass conc 2.7 mg/dL Normal 2.5-4.5 [facility] Comment on above: Performed By: #### H EMDF, PT, BMP3M, PHOS3, MG3, CK3 #### [place] [address] [address] [place], [place] #### VD25H #### [facility] [address] [place] [address] Triglycerideon 07-24-2018 Triglyceride mass conc 78 mg/dL Normal <150 [facility] Comment on above: Performed By: #### H EMDF, PT, BMP3M, PHOS3, MG3, CK3 #### [address] [place], [place] #### VD25H #### [facility] [address] [place] [address] Urea Nitrogen,Ur Randomon Urea nitrogen mass conc 1199 mg/dL Normal No Range S [facility] Comment on above: Performed By: #### H EMDF, PT, BMP3M, PHOS3, MG3, CK3 #### [facility] [address] [place], [place] #### VD25H #### [facility] [address] [place] [address] Add on test from HISon 07-23 Add on test from HIS Accepted Normal [facility] Comment on above: Result Comment: Spec imen available & acceptable for analysis. Performed By: #### H EMDF, PT, BMP3M, PHOS3, MG3, CK3 #### [place] [address] [address] [place], [place] #### VD25H #### [facility] [address] [place] [address] Arterial Blood Gaseson 07-23 CO2 molar conc 23.0 mmol/L Normal 23.0-27.0 [facility] Comment on above: Performed By: #### H EMDF, PT, BMP3M, PHOS3, MG3, CK3 #### [place] [address] [address] [place] #### VD25H #### [facility] [address] [place] [address] HCO3 molar conc (Bld) 22.0 mmol/L Normal 21.0-25.0 [facility] Comment on above: Performed By: #### H EMDF, PT, BMP3M, PHOS3, MG3, CK3 #### [place] [address] [address] [place] #### VD25H #### [facility] [address] [place] [address] Hemoglobin mass conc (Bld) 10.9 g/dL Normal [facility] Comment on above: Performed By: #### H EMDF, PT, BMP3M, PHOS3, MG3, CK3 #### [place] [address] [address] [place] #### VD25H #### [facility] [address] [place] [address] Oxygen ppres (Bld) 102.4 mm[Hg] High 80.0-100.0 [facility] Comment on above: Performed By: #### H EMDF, PT, BMP3M, PHOS3, MG3, CK3 #### [facility] [address] [facility], [place] #### VD25H #### [facility] [address] [place] [address] Oxygen saturation in Blood 97.7 % Normal 95.0-100.0 [facility] Comment on above: Performed By: #### H EMDF, PT, BMP3M, PHOS3, MG3, CK3 #### [address] [place], [place] #### VD25H #### [facility] [address] [place] [address] pCO2 34.4 mm[Hg] Low 35.0-45.0 [facility] Comment on above: Performed By: #### H EMDF, PT, BMP3M, PHOS3, MG3, CK3 #### [place] [address] [address] [facility], [place] #### VD25H #### [facility] [address] [place] [address] pH (Bld) 7.423 Normal 7.350-7.450 [facility] Comment on above: Performed By: #### H EMDF, PT, BMP3M, PHOS3, MG3, CK3 #### [address] [facility], [place] #### VD25H #### [facility] [address] [place] [address] Std Base Excess -1.9 mmol/L Normal -3.0-3.0 [facility] Comment on above: Performed By: #### H EMDF, PT, BMP3M, PHOS3, MG3, CK3 #### [place] [address] [address] [facility], [place] #### VD25H #### [facility] [address] [place] [address] FIO2 .30 Normal [facility] Comment on above: Performed By: #### H EMDF, PT, BMP3M, PHOS3, MG3, CK3 #### [facility] [address] [place] [address] #### VD25H #### [facility] [address] [place] [address] Basic Metabolic Panelon 06-30 Anion gap molar conc 12 Normal [facility] Comment on above: Performed By: #### H EMDF, PT, BMP3M, PHOS3, MG3, CK3 #### [place] [address] [place] #### VD25H #### [facility] [address] [place] [address] Calcium mass conc 7.5 mg/dL Low 8.4-10.4 [facility] Comment on above: Performed By: #### H EMDF, PT, BMP3M, PHOS3, MG3, CK3 #### [place] [address] [place] #### VD25H #### [facility] [address] [place] [address] CO2 molar conc 23 mmol/L Normal 22-30 [facility] Comment on above: Performed By: #### H EMDF, PT, BMP3M, PHOS3, MG3, CK3 #### [facility] [address] [place] #### VD25H #### [facility] [address] [place] [address] Glucose mass conc 148 mg/dL High 70-[address] [facility] Comment on above: Performed By: #### H EMDF, PT, BMP3M, PHOS3, MG3, CK3 #### [place] [address] [address] [place] #### VD25H #### [facility] [address] [place] [address] Urea nitrogen mass conc 82 mg/dL High 7-20 S [facility] Comment on above: Performed By: #### H EMDF, PT, BMP3M, PHOS3, MG3, CK3 #### [facility] [address] [place] [address] #### VD25H #### [facility] [address] [place] [address] Creatinine mass conc 3.01 mg/dL High 0.52-1.25 [facility] Comment on above: Performed By: #### H EMDF, PT, BMP3M, PHOS3, MG3, CK3 #### [address] #### VD25H #### [facility] [address] [place] [address] GFR/1.73 sq M predicted among blacks MDRD vol rate/area (S/P/Bld) 25.8 mL/min/{1.73_m2} Normal >60 [facility] Comment on above: Performed By: #### H EMDF, PT, BMP3M, PHOS3, MG3, CK3 #### [address] #### VD25H #### [facility] [address] [place] [address] GFR/1.73 sq M predicted among non-blacks MDRD vol rate/area (S/P/Bld) 21.3 mL/min/{1.73_m2} Normal >60 [facility] Comment on above: Result Comment: Sour ce- MDRD equation with creatinine calibration to IDMS(NKDEP) eGFR not recommended for drug dose adjustment Performed By: #### H EMDF, PT, BMP3M, PHOS3, MG3, CK3 #### [address] [address] #### VD25H #### [facility] [address] [place] [address] Chloride molar conc 106 mmol/L Normal 98-107 [facility] Comment on above: Performed By: #### H EMDF, PT, BMP3M, PHOS3, MG3, CK3 #### [facility] [address] [place] [address] #### VD25H #### [facility] [address] [place] [address] Potassium molar conc 4.2 mmol/L Normal 3.5-5.1 [facility] Comment on above: Performed By: #### H EMDF, PT, BMP3M, PHOS3, MG3, CK3 #### [facility] [address] [place] [address] #### VD25H #### [facility] [address] [place] [address] Sodium molar conc 141 mmol/L Normal 135-[address] [facility] Comment on above: Performed By: #### H EMDF, PT, BMP3M, PHOS3, MG3, CK3 #### [facility] [address] [place], [place] #### VD25H #### [facility] [address] [place] [address] CR Chest Portableon 07-24-19 19 CR Chest Portable Patient Name: KATHYA HOOPER Diagnostic Radiology Exam Date/Time 07/23/2018 07:06:03 EDT Exam CR Chest Portable Ordering Physician MARIA EUGENIA PEREZ Accession Number [id number] CPT4 Codes 56738 () Reason For Exam ETT placement Report Indication: Shortness of breath. A frontal view of the chest timed 0611 is compared to the study dated 07/22/2018. Again identified is a tracheostomy tube and left-sided PICC line. There are postsurgical changes of the cervical spine. No sizable pneumothorax is seen. There are low lung volumes which accentuates the pulmonary vascularity. There are lower lung infiltrates/atelectat ic changes and a small left pleural effusion. These findings are similar to the prior study. The heart is unchanged in size. The mediastinum is unchanged in appearance. Report Dictated on Final Dictated: 07/23/2018 7:58 am Dictating Physician: DO OLVERA ANTHONY Signed Date and Time: 07/23/2018 7:59 am Signed by: DO OLVERA ANTHONY Transcribed Date and Time: 07/23/2018 7:58 Normal [facility] Creatinine, Ur Randomon 06-30 Creatinine, Ur Random 56.8 mg/dL Normal No Range [facility] Comment on above: Performed By: #### H EMDF, PT, BMP3M, PHOS3, MG3, CK3 #### [facility] [address] [place] [address] #### VD25H #### [facility] [address] [place] [address] Glucose,Bedsideon 07-23-2018 Glucose mass conc 116 mg/dL High 70-100 [facility] Comment on above: Result Comment: Test performed by glucose meter. Results may be 10%-15% lower than serum/plasma values. (CLIA ID [id number]) Performed By: #### H EMDF, PT, BMP3M, PHOS3, MG3, CK3 #### [facility] [address] [place] [address] #### VD25H #### [facility] [employer] [facility] [address] [place] [address] Glucose mass conc 139 mg/dL High 70-100 [facility] Comment on above: Result Comment: Test performed by glucose meter. Results may be 10%-15% lower than serum/plasma values. (CLIA ID [id number]) Performed By: #### H EMDF, PT, BMP3M, PHOS3, MG3, CK3 #### [facility] [address] [place] [address] #### VD25H #### [facility] [employer] [facility] [address] [place] [address] Glucose mass conc 140 mg/dL High 70-100 [facility] Comment on above: Result Comment: Test performed by glucose meter. Results may be 10%-15% lower than serum/plasma values. (CLIA ID [id number]) Performed By: #### H EMDF, PT, BMP3M, PHOS3, MG3, CK3 #### [address] #### VD25H #### [facility] [address] [place] [address] Glucose mass conc 140 mg/dL High 70-[address] [facility] Comment on above: Result Comment: Test performed by glucose meter. Results may be 10%-15% lower than serum/plasma values. (CLIA ID [id number]) Performed By: #### H EMDF, PT, BMP3M, PHOS3, MG3, CK3 #### [address] #### VD25H #### [place] [address] [place] [address] Hemogram w/ Autodiffon 07-23 Abs Baso Cnt 0.0 10*3/uL Normal 0.0-0.2 [facility] Comment on above: Performed By: #### H EMDF, PT, BMP3M, PHOS3, MG3, CK3 #### [address] #### VD25H #### [place] [address] [place] [address] Abs Neutrophile Cnt 16.2 10*3/uL High 1.8-7.0 [facility] Comment on above: Performed By: #### H EMDF, PT, BMP3M, PHOS3, MG3, CK3 #### [address] #### VD25H #### [place] [address] [place] [address] Basophils/100 WBC (Bld) 0.3 % Normal 0.0-2.0 [facility] Comment on above: Performed By: #### H EMDF, PT, BMP3M, PHOS3, MG3, CK3 #### [address] #### VD25H #### [place] [address] [place] [address] Eosinophils #/vol (Bld) 0.2 10*3/uL Normal 0.0-0.5 [facility] Comment on above: Performed By: #### H EMDF, PT, BMP3M, PHOS3, MG3, CK3 #### [address] #### VD25H #### [facility] [address] [place] [address] Eosinophils/100 WBC (Bld) 1.2 % Normal 1.0-6.0 [facility] Comment on above: Performed By: #### H EMDF, PT, BMP3M, PHOS3, MG3, CK3 #### [address] #### VD25H #### [place] [address] [place] [address] Erythrocyte distribution width Ratio (RBC) 13.9 % Normal 11.5-14.5 [facility] Comment on above: Performed By: #### H EMDF, PT, BMP3M, PHOS3, MG3, CK3 #### [address] #### VD25H #### [facility] [address] [place] [address] Granulocytes/100 WBC (Bld) 86.8 % High 40.0-80.0 [facility] Comment on above: Performed By: #### H EMDF, PT, BMP3M, PHOS3, MG3, CK3 #### [address] #### VD25H #### [facility] [address] [place] [address] Hematocrit Volume Fraction (Bld) 26.7 % Low 40.0-52.0 [facility] Comment on above: Performed By: #### H EMDF, PT, BMP3M, PHOS3, MG3, CK3 #### [address] #### VD25H #### [facility] [address] [place] [address] Hemoglobin mass conc (Bld) 8.9 g/dL Low 13.0-18.0 [facility] Comment on above: Performed By: #### H EMDF, PT, BMP3M, PHOS3, MG3, CK3 #### [address] #### VD25H #### [facility] [address] [place] [address] Lymphocytes #/vol (Bld) 1.2 10*3/uL Normal 1.0-4.3 [facility] Comment on above: Performed By: #### H EMDF, PT, BMP3M, PHOS3, MG3, CK3 #### [address] #### VD25H #### [place] [address] [place] [address] Lymphocytes/100 WBC (Bld) 6.6 % Low 20.0-40.0 [facility] Comment on above: Performed By: #### H EMDF, PT, BMP3M, PHOS3, MG3, CK3 #### [address] #### VD25H #### [place] [address] [place] [address] MCH Entitic mass (RBC) 29.5 pg Normal 26.0-34.0 [facility] Comment on above: Performed By: #### H EMDF, PT, BMP3M, PHOS3, MG3, CK3 #### [address] #### VD25H #### [facility] [address] [place] [address] MCHC mass conc (RBC) 33.5 % Normal 32.0-36.0 [facility] Comment on above: Performed By: #### H EMDF, PT, BMP3M, PHOS3, MG3, CK3 #### [address] #### VD25H #### [facility] [address] [place] [address] MCV Entitic volume (RBC) 87.9 fL Normal 80.0-98.0 [facility] Comment on above: Performed By: #### H EMDF, PT, BMP3M, PHOS3, MG3, CK3 #### [place] [address] [place], [place] #### VD25H #### [facility] [address] [place] [address] Monocytes #/vol (Bld) 1.0 10*3/uL High 0.0-0.8 [facility] Comment on above: Performed By: #### H EMDF, PT, BMP3M, PHOS3, MG3, CK3 #### [place] [address] [place] #### VD25H #### [facility] [address] [place] [address] Monocytes/100 WBC (Bld) 5.1 % Normal 2.0-10.0 [facility] Comment on above: Performed By: #### H EMDF, PT, BMP3M, PHOS3, MG3, CK3 #### [place] [address] [place], [place] #### VD25H #### [facility] [address] [place] [address] Platelet mean volume Entitic volume (Bld) 8.2 fL Normal 7.4-10.4 [facility] Comment on above: Performed By: #### H EMDF, PT, BMP3M, PHOS3, MG3, CK3 #### [address] [place], [place] #### VD25H #### [facility] [address] [place] [address] Platelets #/vol (Bld) 294 10*3/uL Normal 140-440 [facility] Comment on above: Performed By: #### H EMDF, PT, BMP3M, PHOS3, MG3, CK3 #### [facility] [address] [place], [place] #### VD25H #### [facility] [address] [place] [address] RBC #/vol (Bld) 3.03 10*6/uL Low 4.40-5.[address] [facility] Comment on above: Performed By: #### H EMDF, PT, BMP3M, PHOS3, MG3, CK3 #### [place] [address] [place], [place] #### VD25H #### [facility] [address] [place] [address] WBC #/vol (Bld) 18.7 10*3/uL High 3.6-10.[address] [facility] Comment on above: Performed By: #### H EMDF, PT, BMP3M, PHOS3, MG3, CK3 #### [place] [address] [place], [place] #### VD25H #### [facility] [address] [place] [address] LDHon 07-23-2018 LDH 342 U/L High 65-175 [facility] Comment on above: Performed By: #### H EMDF, PT, BMP3M, PHOS3, MG3, CK3 #### [address] #### VD25H #### [facility] [address] [place] [address] Magnesiumon 07-23-2018 Magnesium mass conc 2.5 mg/dL High 1.6-2.3 [facility] Comment on above: Performed By: #### H EMDF, PT, BMP3M, PHOS3, MG3, CK3 #### [address] [place], [place] #### VD25H #### [facility] [address] [place] [address] Phosphoruson 07-23-2018 Phosphate mass conc 4.5 mg/dL Normal 2.5-4.5 [facility] Comment on above: Performed By: #### H EMDF, PT, BMP3M, PHOS3, MG3, CK3 #### [facility] [address] [place] #### VD25H #### [facility] [address] [place] [address] Protein, Total Body Fluidon 07-23-2018 Protein,Total-Body Fld 2.7 g/dL Normal No Range [facility] Comment on above: Performed By: #### H EMDF, PT, BMP3M, PHOS3, MG3, CK3 #### [place] [address] [place], [place] #### VD25H #### [facility] [address] [place] [address] Triglycerideon 07-23-2018 Triglyceride mass conc 63 mg/dL Normal <150 [facility] Comment on above: Performed By: #### H EMDF, PT, BMP3M, PHOS3, MG3, CK3 #### [place] [address] [place], [place] #### VD25H #### [facility] [address] [place] [address] Urea Nitrogen,Ur Randomon Urea nitrogen mass conc 677 mg/dL Normal No Range S [facility] Comment on above: Performed By: #### H EMDF, PT, BMP3M, PHOS3, MG3, CK3 #### [facility] [address] [place] #### VD25H #### [facility] [address] [place] [address] Urinalysis,Macroon 9 Appearance Nom (U) cloudy Normal Clear [facility] Comment on above: Performed By: #### H EMDF, PT, BMP3M, PHOS3, MG3, CK3 #### [place] [address] [place], [place] #### VD25H #### [facility] [address] [place] [address] Bilirubin,Ur Negative Normal Negative [facility] Comment on above: Performed By: #### H EMDF, PT, BMP3M, PHOS3, MG3, CK3 #### [place] [address] [place] #### VD25H #### [facility] [address] [place] [address] Color Nom (U) dk.yel Normal Lt. Yellow [facility] Comment on above: Performed By: #### H EMDF, PT, BMP3M, PHOS3, MG3, CK3 #### [place] [address] [place], [place] #### VD25H #### [facility] [address] [place] [address] Glucose Ql (U) NORM Normal Negative [facility] Comment on above: Performed By: #### H EMDF, PT, BMP3M, PHOS3, MG3, CK3 #### [place] [address] [place], [place] #### VD25H #### [facility] [address] [place] [address] Ketone,Urine Negative Normal Negative [facility] Comment on above: Performed By: #### H EMDF, PT, BMP3M, PHOS3, MG3, CK3 #### [place] [address] [place] #### VD25H #### [facility] [address] [place] [address] Nitrite Ql (U) Negative Normal Negative [facility] Comment on above: Performed By: #### H EMDF, PT, BMP3M, PHOS3, MG3, CK3 #### [place] [address] [place], [place] #### VD25H #### [facility] [address] [place] [address] Occult Blood,Ur 250 {RBC}/uL Normal Negative [facility] Comment on above: Performed By: #### H EMDF, PT, BMP3M, PHOS3, MG3, CK3 #### [facility] [address] [place] #### VD25H #### [facility] [address] [place] [address] pH (U) 5.0 Normal 5.0-8.0 [facility] Comment on above: Performed By: #### H EMDF, PT, BMP3M, PHOS3, MG3, CK3 #### [place] [address] [address] [facility], [place] #### VD25H #### [facility] [address] [place] [address] Protein mass conc (U) 75 mg/dL Normal Negative [facility] Comment on above: Performed By: #### H EMDF, PT, BMP3M, PHOS3, MG3, CK3 #### [address] [facility], [place] #### VD25H #### [facility] [address] [place] [address] Specific [place],Urine 1.015 Normal 1.005-1.030 [facility] Comment on above: Performed By: #### H EMDF, PT, BMP3M, PHOS3, MG3, CK3 #### [place] [address] [address] [facility], [place] #### VD25H #### [facility] [address] [place] [address] Urobilinogen Qn (U) NORM Normal 0-1 [facility] Comment on above: Performed By: #### H EMDF, PT, BMP3M, PHOS3, MG3, CK3 #### [place] [address] [facility], [place] #### VD25H #### [facility] [address] [place] [address] WBC #/vol (Bld) 2 + Normal Negative [facility] Comment on above: Performed By: #### H EMDF, PT, BMP3M, PHOS3, MG3, CK3 #### [place] [address] [address] [facility], [place] #### VD25H #### [facility] [address] [place] [address] Urinalysis,Microscopicon Bacteria LM.HPF #/area (Urine sed) Moderate (6-50) Normal Negative [facility] Comment on above: Performed By: #### H EMDF, PT, BMP3M, PHOS3, MG3, CK3 #### [address] #### VD25H #### [facility] [address] [place] [address] Epithelial cells LM.HPF #/area (Urine sed) 0 - 2 Normal 3-5 [facility] Comment on above: Performed By: #### H EMDF, PT, BMP3M, PHOS3, MG3, CK3 #### [address] #### VD25H #### [place] [address] [place] [address] RBC LM.HPF #/area (Urine sed) /[HPF] Normal 0-2 [facility] Comment on above: Performed By: #### H EMDF, PT, BMP3M, PHOS3, MG3, CK3 #### [address] #### VD25H #### [facility] [address] [place] [address] Volume,Urine 8-12 ml Normal [facility] Comment on above: Performed By: #### H EMDF, PT, BMP3M, PHOS3, MG3, CK3 #### [address] #### VD25H #### [facility] [address] [place] [address] WBC LM.HPF #/area (Urine sed) 26 - 50 Normal 0-5 [facility] Comment on above: Performed By: #### H EMDF, PT, BMP3M, PHOS3, MG3, CK3 #### [address] #### VD25H #### [facility] [address] [place] [address] VL Venous Duplex US Lower Ex t Bilateralon 07-23-2018 VL Venous Duplex US Lower Ext Bilateral Patient Name: KATHYA HOOPER Ultrasound Exam Date/Time 07/23/2018 11:16:11 EDT Exam VL Venous Duplex US Lower Ext Bilateral Ordering Physician ETIENNE MARTÍNEZ JULIE Accession Number [id number] CPT4 Codes 05625 () Reason For Exam edema Report [facility] --- Lower Extremity Venous Duplex Report Patient Name: Kathya Hooper : 1955 Study Date: 07/23/2018 [place] (63yrs) Age: 63 Account: [id number] Gender: M Loc: T209 BP: Ordering: Yesenia Martínez Technologist: Ordering Physician: Yesenia Martínez Metal Burrer: León Chaidez RVT [facility] Interpreting Physician: Vamsi York MD --- Location: [facility] --- INDICATIONS: Edema. bilateral calf edema. --- CONCLUSIONS 1. This is a normal study. --- IMPRESSIONS: - The superficial and deep systems of the bilateral lower extremities appear to be free of thrombus. - This is a normal study. --- STUDY DATA: Complete lower extremity venous duplex evaluation. Birthdate: Patient birthdate: 1955. Age: Patient is 63 yr old. Sex: Gender: male. Ethnicity: Ethnicity: white. Doppler flow study including spectral analysis, color and boland scale imaging. Patient status: Inpatient. Procedure: A vascular evaluation was performed. The images were obtained using a Innovate2 E9 vascular ultrasound machine. --- VENOUS FLOW AND IMAGING: + ---------+-------+--- --+ !Location !Overall!Flow properties ! + ---------+-------+--- --+ !Right common femoral !Patent !Normal phasicity; spontaneous; normal ! ! ! !augmentation; compressible ! + ---------+-------+--- --+ !Right saphenofemoral junction!Patent !Compressible ! + ---------+-------+--- --+ !Right profunda femoral !Patent ! --! + ---------+-------+--- --+ !R femoral proximal !Patent !Compressible ! + ---------+-------+--- --+ !R femoral mid !Patent !Normal phasicity; spontaneous; normal ! ! ! !augmentation; compressible ! + ---------+-------+--- --+ !R femoral distal !Patent !Compressible ! + ---------+-------+--- --+ !Right popliteal !Patent !Normal phasicity; spontaneous; normal ! ! ! !augmentation; compressible ! + ---------+-------+--- --+ !Right gastrocnemius !Patent !Compressible ! + ---------+-------+--- --+ !Right posterior tibial !Patent !Compressible ! + ---------+-------+--- --+ !Right peroneal !Patent !Compressible ! + ---------+-------+--- --+ !Right soleal !Patent !Compressible ! + ---------+-------+--- --+ !Right greater saphenous !Patent !Compressible ! + ---------+-------+--- --+ !Left common femoral !Patent !Normal phasicity; spontaneous; normal ! ! ! !augmentation; compressible ! + ---------+-------+--- --+ !Left saphenofemoral junction !Patent !Compressible ! + ---------+-------+--- --+ !Left profunda femoral !Patent ! --! + ---------+-------+--- --+ !L femoral proximal !Patent !Compressible ! + ---------+-------+--- --+ !L femoral mid !Patent !Normal phasicity; spontaneous; normal ! ! ! !augmentation; compressible ! + ---------+-------+--- --+ !L femoral distal !Patent !Compressible ! + ---------+-------+--- --+ !Left popliteal !Patent !Normal phasicity; spontaneous; normal ! ! ! !augmentation; compressible ! + ---------+-------+--- --+ !Left gastrocnemius !Patent !Compressible ! + ---------+-------+--- --+ !Left posterior tibial !Patent !Compressible ! + ---------+-------+--- --+ !Left peroneal !Patent !Compressible ! + ---------+-------+--- --+ !Left soleal !Patent !Compressible ! + ---------+-------+--- --+ !Left greater saphenous !Patent !Compressible ! + ---------+-------+--- --+ Electronically signed by: Vamsi York MD [id number] Final Dictated: 07/23/2018 3:00 pm Dictating Physician: VAMSI YORK Signed Date and Time: 07/23/2018 3:00 pm Signed by: VAMSI YORK Normal [facility] Vancomycin Troughon 07-24-19 19 Vancomycin Trough 10.8 ug/mL Low 15.0-20.[address] [facility] Comment on above: Result Comment: . Performed By: #### H EMDF, PT, BMP3M, PHOS3, MG3, CK3 #### [facility] [address] [facility], [place] #### VD25H #### [facility] [address] [place] [address] Basic Metabolic Panelon 03-2 Calcium mass conc 7.9 mg/dL Low 8.4-10.4 [facility] Comment on above: Performed By: #### H EMDF, PT, BMP3M, PHOS3, MG3, CK3 #### [place] [address] [address] [facility], [place] #### VD25H #### [facility] [address] [place] [address] Anion gap molar conc 11 Normal [facility] Comment on above: Performed By: #### H EMDF, PT, BMP3M, PHOS3, MG3, CK3 #### [place] [address] [address] [facility], [place] #### VD25H #### [facility] [address] [place] [address] CO2 molar conc 28 mmol/L Normal 22-30 [facility] Comment on above: Performed By: #### H EMDF, PT, BMP3M, PHOS3, MG3, CK3 #### [place] [address] [address] [facility], [place] #### VD25H #### [facility] [address] [place] [address] Glucose mass conc 134 mg/dL High 70-[address] [facility] Comment on above: Performed By: #### H EMDF, PT, BMP3M, PHOS3, MG3, CK3 #### [place] [address] [address] [facility], [place] #### VD25H #### [facility] [address] [place] [address] Urea nitrogen mass conc 51 mg/dL High 7-20 [facility] Comment on above: Performed By: #### H EMDF, PT, BMP3M, PHOS3, MG3, CK3 #### [facility] [address] [place] #### VD25H #### [facility] [address] [place] [address] Creatinine mass conc 1.57 mg/dL High 0.52-1.25 [facility] Comment on above: Performed By: #### H EMDF, PT, BMP3M, PHOS3, MG3, CK3 #### [place] [address] [address] [place], [place] #### VD25H #### [facility] [address] [place] [address] GFR/1.73 sq M predicted among blacks MDRD vol rate/area (S/P/Bld) 54.6 mL/min/{1.73_m2} Normal >60 [facility] Comment on above: Performed By: #### H EMDF, PT, BMP3M, PHOS3, MG3, CK3 #### [address] #### VD25H #### [facility] [address] [place] [address] GFR/1.73 sq M predicted among non-blacks MDRD vol rate/area (S/P/Bld) 45.1 mL/min/{1.73_m2} Normal >60 [facility] Comment on above: Result Comment: Sour ce- MDRD equation with creatinine calibration to IDMS(NKDEP) eGFR not recommended for drug dose adjustment Performed By: #### H EMDF, PT, BMP3M, PHOS3, MG3, CK3 #### [address] #### VD25H #### [facility] [address] [place] [address] Chloride molar conc 107 mmol/L Normal 98-107 [facility] Comment on above: Performed By: #### H EMDF, PT, BMP3M, PHOS3, MG3, CK3 #### [address] #### VD25H #### [facility] [address] [place] [address] Potassium molar conc 3.8 mmol/L Normal 3.5-5.1 [facility] Comment on above: Performed By: #### H EMDF, PT, BMP3M, PHOS3, MG3, CK3 #### [facility] [address] [facility] #### VD25H #### [facility] [address] [place] [address] Sodium molar conc 146 mmol/L High 135-[address] [facility] Comment on above: Performed By: #### H EMDF, PT, BMP3M, PHOS3, MG3, CK3 #### [facility] [address] [facility] [place] #### VD25H #### [facility] [address] [place] [address] CR Abdomen APon 07-22-2018 CR Abdomen AP Patient Name: KATHYA HOOPER Diagnostic Radiology Exam Date/Time 07/22/2018 08:02:02 EDT Exam CR Abdomen AP Ordering Physician MARIA EUGENIA PEREZ Accession Number [id number] CPT4 Codes 94134 () Reason For Exam ileus Report Supine view of the abdomen, 07/22/2018. Reason for examination: Abdominal distention. Ileus. COMPARISON: 07/21/2018. FINDINGS: Mild to moderate colonic and small bowel distention are again noted, similar to the prior study. There is enteric contrast in the colon. A probable percutaneous gastrostomy tube is noted in the left upper quadrant. There are scattered calcifications in the abdomen and pelvis which appear to be vascular in nature. There are degenerative changes in the lumbar spine. IMPRESSION: Mild colonic and small bowel distention, consistent with history of an ileus. Findings are similar to the prior study. Report Dictated on Final Dictated: 07/22/2018 9:28 am Dictating Physician: MD GARCIA JOE M Signed Date and Time: 07/22/2018 9:30 am Signed by: MD GARCIA JOE M Transcribed Date and Time: 07/22/2018 9:28 Normal [facility] CR Chest Portableon 07-23-19 CR Chest Portable Patient Name: KATHYA HOOPER Diagnostic Radiology Exam Date/Time 07/22/2018 16:32:15 EDT Exam CR Chest Portable Ordering Physician MD NATE, [facility] Accession Number [id number] CPT4 Codes 81780 () Reason For Exam Thoracentesis Report Clinical indications: Thoracentesis FINDINGS: A single view is submitted and compared with a previous exam performed on the same date at 0617 hours. Tracheostomy tube is unchanged. The cardiomediastinal silhouette is stable. There is some blunting of the left costophrenic angle suggestive of pleural fluid accumulation. There is no evidence of CHF or pneumothorax. Patchy infiltrates/atelectat ic change in the right lung base is unchanged. IMPRESSION: Hazy opacity present in the left lung on the previous exam has mostly resolved. There is some residual blunting of the left costophrenic angle. Patchy infiltrate/atelectasi s in the right lung base is stable. Report Dictated on Final Dictated: 07/22/2018 6:46 pm Dictating Physician: MD JUAREZ RUSSELL Signed Date and Time: 07/22/2018 6:50 pm Signed by: MD JUAREZ RUSSELL Transcribed Date and Time: 07/22/2018 6:46 Normal [facility] CR Chest Portable Patient Name: KATHYA HOOPER Diagnostic Radiology Exam Date/Time 07/22/2018 06:49:22 EDT Exam CR Chest Portable Ordering Physician MARIA EUGENIA PEREZ Accession Number [id number] CPT4 Codes 36439 () Reason For Exam ETT placement Report Portable semiupright AP view of the chest, 07/22/2018. Reason for examination: Respiratory insufficiency. COMPARISON: 07/21/2018. FINDINGS: Lung volumes remain relatively low. Cardiac size is within normal limits. Pulmonary vasculature is prominent and mildly redistributed. There are patchy bilateral infiltrates, left greater than right, with a probable layering left pleural effusion. Findings are relatively similar to the prior study. No pneumothorax is noted. Tracheostomy catheter is again noted with tip in satisfactory position. There is a left arm PICC. Surgical skin jada and cervical fusion hardware project over the lower neck. IMPRESSION: Relatively low lung volumes with patchy bilateral infiltrates and layering left pleural effusion. Findings are similar to the prior study. Report Dictated on Final Dictated: 07/22/2018 9:31 am Dictating Physician: MD GARCIA JOE M Signed Date and Time: 07/22/2018 9:32 am Signed by: MD GARCIA JOE M Transcribed Date and Time: 07/22/2018 9:31 Normal [facility] CULTURE AND STAIN - FLUIDon 07-22-2018 CULTURE AND STAIN - FLUID CULTURE & STAIN - FLUID --> Status: F No growth at 5 days. STAIN GRAM --> Status: F Moderate polymorphonuclear cells/lpf. Moderate mononuclear cells/lpf No organisms seen. Cytocentrifugation performed. Moderate mononuclear cells/lpf No organisms seen. Cytocentrifugation performed. Normal [facility] Comment on above: Order Comment: Speci men Source Comment:Body Fluid Performed By: #### H EMDF, PT, BMP3M, PHOS3, MG3, CK3 #### [facility] [address] [place] [address] #### VD25H #### [facility] [address] [place] [address] Cell Count,Body Fluidon 06-30 Nucleated Cells 259 {cells}/uL Normal [facility] Comment on above: Performed By: #### H EMDF, PT, BMP3M, PHOS3, MG3, CK3 #### [facility] [address] [place] [address] #### VD25H #### [facility] [address] [place] [address] RBC Count Body Fld 123 {RBC}/uL Normal [facility] Comment on above: Performed By: #### H EMDF, PT, BMP3M, PHOS3, MG3, CK3 #### [facility] [address] [facility], [place] #### VD25H #### [facility] [address] [place] [address] Fluid Type thoracentesis Normal [facility] Comment on above: Performed By: #### H EMDF, PT, BMP3M, PHOS3, MG3, CK3 #### [facility] [address] [facility], [place] #### VD25H #### [facility] [address] [place] [address] Glucose, Body Fluidon 2018 Fluid Type Thoracentesis Normal [facility] Comment on above: Performed By: #### H EMDF, PT, BMP3M, PHOS3, MG3, CK3 #### [place] [address] [address] [facility], [place] #### VD25H #### [facility] [address] [place] [address] Glucose, Body Fluid 136 mg/dL Normal No Range [facility] Comment on above: Performed By: #### H EMDF, PT, BMP3M, PHOS3, MG3, CK3 #### [place] [address] [address] [facility], [place] #### VD25H #### [facility] [address] [place] [address] Glucose,Bedsideon 07-22-2018 Glucose mass conc 142 mg/dL High 70-[address] [facility] Comment on above: Result Comment: Test performed by glucose meter. Results may be 10%-15% lower than serum/plasma values. (CLIA ID [id number]) Performed By: #### H EMDF, PT, BMP3M, PHOS3, MG3, CK3 #### [place] [address] [address] [facility], [place] #### VD25H #### [facility] [address] [place] [address] Glucose mass conc 127 mg/dL High 70-[address] [facility] Comment on above: Result Comment: Test performed by glucose meter. Results may be 10%-15% lower than serum/plasma values. (CLIA ID [id number]) Performed By: #### H EMDF, PT, BMP3M, PHOS3, MG3, CK3 #### [employer] [facility] [address] [place] [address] #### VD25H #### [employer] [facility] [address] [place] [address] Glucose mass conc 139 mg/dL High 70-100 [facility] Comment on above: Result Comment: Test performed by glucose meter. Results may be 10%-15% lower than serum/plasma values. (CLIA ID [id number]) Performed By: #### H EMDF, PT, BMP3M, PHOS3, MG3, CK3 #### [employer] [facility] [address] [place] [address] #### VD25H #### [employer] [facility] [address] [place] [address] Glucose mass conc 124 mg/dL High 70-100 [facility] Comment on above: Result Comment: Test performed by glucose meter. Results may be 10%-15% lower than serum/plasma values. (CLIA ID [id number]) Performed By: #### H EMDF, PT, BMP3M, PHOS3, MG3, CK3 #### [employer] [facility] [address] [place] [id number] #### VD25H #### [employer] [facility] [address] [place] [address] Glucose mass conc 128 mg/dL High 70-100 [facility] Comment on above: Result Comment: Test performed by glucose meter. Results may be 10%-15% lower than serum/plasma values. (CLIA ID [id number]) Performed By: #### H EMDF, PT, BMP3M, PHOS3, MG3, CK3 #### [employer] [facility] [address] [place] [phone] #### VD25H #### [employer] [facility] [address] [place] [address] Glucose mass conc 113 mg/dL High 70-[address] [facility] Comment on above: Result Comment: Test performed by glucose meter. Results may be 10%-15% lower than serum/plasma values. (CLIA ID [id number]) Performed By: #### H EMDF, PT, BMP3M, PHOS3, MG3, CK3 #### [facility] [address] [place], [place] #### VD25H #### [facility] [address] [place] [address] Hemogram w/ Autodiffon 07-22 Abs Baso Cnt 0.1 10*3/uL Normal 0.0-0.2 [facility] Comment on above: Performed By: #### H EMDF, PT, BMP3M, PHOS3, MG3, CK3 #### [address] #### VD25H #### [facility] [address] [place] [address] Abs Neutrophile Cnt 15.2 10*3/uL High 1.8-7.0 [facility] Comment on above: Performed By: #### H EMDF, PT, BMP3M, PHOS3, MG3, CK3 #### [address] #### VD25H #### [facility] [address] [place] [address] Basophils/100 WBC (Bld) 0.6 % Normal 0.0-2.0 [facility] Comment on above: Performed By: #### H EMDF, PT, BMP3M, PHOS3, MG3, CK3 #### [address] #### VD25H #### [facility] [address] [place] [address] Eosinophils #/vol (Bld) 0.2 10*3/uL Normal 0.0-0.5 [facility] Comment on above: Performed By: #### H EMDF, PT, BMP3M, PHOS3, MG3, CK3 #### [facility] [address] [place], [place] #### VD25H #### [facility] [address] [place] [address] Eosinophils/100 WBC (Bld) 0.9 % Low 1.0-6.0 [facility] Comment on above: Performed By: #### H EMDF, PT, BMP3M, PHOS3, MG3, CK3 #### [address] [place], [place] #### VD25H #### [facility] [address] [place] [address] Erythrocyte distribution width Ratio (RBC) 13.9 % Normal 11.5-14.5 [facility] Comment on above: Performed By: #### H EMDF, PT, BMP3M, PHOS3, MG3, CK3 #### [address] #### VD25H #### [facility] [address] [place] [address] Granulocytes/100 WBC (Bld) 88.8 % High 40.0-80.0 [facility] Comment on above: Performed By: #### H EMDF, PT, BMP3M, PHOS3, MG3, CK3 #### [address] #### VD25H #### [facility] [address] [place] [address] Hematocrit Volume Fraction (Bld) 31.6 % Low 40.0-52.0 [facility] Comment on above: Performed By: #### H EMDF, PT, BMP3M, PHOS3, MG3, CK3 #### [address] #### VD25H #### [facility] [address] [place] [address] Hemoglobin mass conc (Bld) 10.9 g/dL Low 13.0-18.0 [facility] Comment on above: Performed By: #### H EMDF, PT, BMP3M, PHOS3, MG3, CK3 #### [facility] [address] [place], [place] #### VD25H #### [facility] [address] [place] [address] Lymphocytes #/vol (Bld) 1.1 10*3/uL Normal 1.0-4.3 [facility] Comment on above: Performed By: #### H EMDF, PT, BMP3M, PHOS3, MG3, CK3 #### [place] [address] [address] [place], [place] #### VD25H #### [facility] [address] [place] [address] Lymphocytes/100 WBC (Bld) 6.2 % Low 20.0-40.0 [facility] Comment on above: Performed By: #### H EMDF, PT, BMP3M, PHOS3, MG3, CK3 #### [place] [address] [address] [place], [place] #### VD25H #### [facility] [address] [place] [address] MCH Entitic mass (RBC) 31.1 pg Normal 26.0-34.0 [facility] Comment on above: Performed By: #### H EMDF, PT, BMP3M, PHOS3, MG3, CK3 #### [place] [address] [place] #### VD25H #### [facility] [address] [place] [address] MCHC mass conc (RBC) 34.6 % Normal 32.0-36.0 [facility] Comment on above: Performed By: #### H EMDF, PT, BMP3M, PHOS3, MG3, CK3 #### [address] #### VD25H #### [facility] [address] [place] [address] MCV Entitic volume (RBC) 89.9 fL Normal 80.0-98.0 [facility] Comment on above: Performed By: #### H EMDF, PT, BMP3M, PHOS3, MG3, CK3 #### [address] [place], [place] #### VD25H #### [facility] [address] [place] [address] Monocytes #/vol (Bld) 0.6 10*3/uL Normal 0.0-0.8 [facility] Comment on above: Performed By: #### H EMDF, PT, BMP3M, PHOS3, MG3, CK3 #### [address] #### VD25H #### [facility] [address] [place] [address] Monocytes/100 WBC (Bld) 3.5 % Normal 2.0-10.0 S [facility] Comment on above: Performed By: #### H EMDF, PT, BMP3M, PHOS3, MG3, CK3 #### [address] #### VD25H #### [facility] [address] [place] [address] Platelet mean volume Entitic volume (Bld) 7.9 fL Normal 7.4-10.4 [facility] Comment on above: Performed By: #### H EMDF, PT, BMP3M, PHOS3, MG3, CK3 #### [address] #### VD25H #### [facility] [address] [place] [address] Platelets #/vol (Bld) 299 10*3/uL Normal 140-440 [facility] Comment on above: Performed By: #### H EMDF, PT, BMP3M, PHOS3, MG3, CK3 #### [address] #### VD25H #### [facility] [address] [place] [address] RBC #/vol (Bld) 3.52 10*6/uL Low 4.40-5.[address] [facility] Comment on above: Performed By: #### H EMDF, PT, BMP3M, PHOS3, MG3, CK3 #### [address] #### VD25H #### [facility] [address] [place] [address] WBC #/vol (Bld) 17.1 10*3/uL High 3.6-10.[address] [facility] Comment on above: Performed By: #### H EMDF, PT, BMP3M, PHOS3, MG3, CK3 #### [address] #### VD25H #### [address] [place] [address] LDH, Body Fluidon 07-22-2018 LDH, Body Fluid 232 U/L Normal No [facility] Comment on above: Performed By: #### H EMDF, PT, BMP3M, PHOS3, MG3, CK3 #### [address] #### VD25H #### [facility] [address] [place] [address] Magnesiumon 07-22-2018 Magnesium mass conc 2.6 mg/dL High 1.6-2.3 [facility] Comment on above: Performed By: #### H EMDF, PT, BMP3M, PHOS3, MG3, CK3 #### [address] #### VD25H #### [facility] [address] [place] [address] Medical Cytologyon 9 Medical Cytology [facility] [id number] DEPARTMENT OF PATHOLOGY AND [facility]ATORY MEDICINE [address] [facility] [place] [address] FINAL MEDICAL CYTOLOGY REPORT NAME: KATHYA HOOPER : 1955 63 Y M BILLING NO.: [id number] LOCATION: 1T2I T2 INPAT T209 PROCEDURE 07/22/2018 DATE: PHYSICIAN: NICOLE SULLIVAN M.D. RECEIVED DATE: 07/23/2018 ATTENDING: JORDAN OREILLY MD REPORT DATE: 07/24/2018 COPIES TO: JAHAIRA GUADARRAMA MD; CARRINGTON SHAVER M.D. CLINICAL DATA: DIAGNOSIS NO MALIGNANT CELLS IDENTIFIED. Reactive mesothelial cell changes. Lymphocytosis present. SPECIMEN: PLEURAL FLUID, LEFT PROCEDURE(S): FLUID COLLECTION GROSS DESCRIPTION: 350 ml, yellow, clotted fluid, w/o cytolyt Materials Prepared & Examined: Cell Blocks . . . . . . . . . . . . 2 Monolayers . . . . . . . . . . . . 1 MRC Screened by CYNDI LILLY M.D. The following statement applies to all immunohistochemistry, in situ hybridization, molecular studies, and immunofluorescence testing. The use of one or more reagents in the above tests is regulated as an analyte specific reagent (ASR). These tests were developed and their performance characteristics determined by the clinical laboratories of [facility]. They have not been cleared by the US Food and Drug Administration (FDA). The FDA has determined that such clearance or approval is not necessary. All the above immunostains were performed on paraffin embedded tissue. Appropriate positive and negative controls (where applicable) were run in parallel with the patient's specimen; these controls showed expected staining pattern, with acceptable intensity of staining. Immunohistochemical assays have not been validated on decalcified tissues. Results should be interpreted with caution given the raised possibility of false negativity on decalcified specimens. Case reviewed at [facility] [address] [place] [address]. DEPARTMENT OF PATHOLOGY AND LABORATORY MEDICINE [place], [place] Normal [facility] Phosphoruson 07-22-2018 Phosphate mass conc 4.6 mg/dL High 2.5-4.5 [facility] Comment on above: Performed By: #### H EMDF, PT, BMP3M, PHOS3, MG3, CK3 #### [address] #### VD25H #### [facility] [address] [place] [address] Procalcitoninon 07-22-2018 Protein mass conc 0.27 ng/mL Abnormal <0.10 [facility] Comment on above: Result Comment: (Cor rect ref.range is <0.09 ng/mL) Test performed: [place], [place]. Performed By: #### H EMDF, PT, BMP3M, PHOS3, MG3, CK3 #### [address] #### VD25H #### [facility] [address] [place] [address] Interpretation See Below Normal [facility] Comment on above: Result Comment: PCT <0.50 = Low risk of severe sepsis and/or septic shock. PCT >2.00 = High risk of severe sepsis and/or septic shock. Performed By: #### H EMDF, PT, BMP3M, PHOS3, MG3, CK3 #### [address] #### VD25H #### [facility] [address] [place] [address] STAIN ACID-FASTon 07-22-2018 STAIN ACID-FAST STAIN ACID-FAST --> Status: F No acid-fast bacilli seen in smear. - Method: AFB by Kinyoun Stain - Method: AFB by Kinyoun Stain Normal [facility] Comment on above: Performed By: #### H EMDF, PT, BMP3M, PHOS3, MG3, CK3 #### [facility] [address] [place] [address] #### VD25H #### [facility] [address] [place] [address] Triglycerideon 07-22-2018 Triglyceride mass conc 96 mg/dL Normal <150 [facility] Comment on above: Performed By: #### H EMDF, PT, BMP3M, PHOS3, MG3, CK3 #### [facility] [address] [facility] [place] [address] #### VD25H #### [facility] [address] [place] [address] US Thora-Aspir Pleura w/ Evelin geon 07-22-2018 US Thora-Aspir Pleura w/ Image Patient Name: KATHYA HOOPER Ultrasound Exam Date/Time 07/22/2018 14:23:28 EDT Exam US Thora-Aspir Pleura w/ Image Ordering Physician MARIA EUGENIA PEREZ Accession Number [id number] CPT4 Codes 18696 () Reason For Exam L thoracentesis Report Reasons for examination: Left pleural effusion. Respiratory insufficiency. Ultrasound was performed of the left hemithorax, localizing the pleural fluid. After obtaining informed consent, sterile preparation, draping, and local anesthetic administration, thoracentesis was performed under direct ultrasonographic guidance with a 5 Yoruba Yueh needle/catheter. A total of 300 mL of clear, yellow pleural fluid was drained via the Yueh catheter. Samples were sent for laboratory analysis with accompanying requisitions. A sterile dressing was applied at the puncture site. Post thoracentesis ultrasound images demonstrate a small amount of residual fluid. The patient tolerated the procedure, and there were no immediate complications. IMPRESSION: Satisfactory ultrasound guided left thoracentesis. Report Dictated on Final Dictated: 07/22/2018 2:55 pm Dictating Physician: MD GARCIA JOE M Signed Date and Time: 07/22/2018 3:00 pm Signed by: MD GARCIA JOE M Transcribed Date and Time: 07/22/2018 2:55 Normal [facility] pH,Misc Body Fluidon 019 pH,Misc 7.996 Normal None Available [facility] Comment on above: Performed By: #### H EMDF, PT, BMP3M, PHOS3, MG3, CK3 #### [facility] [address] [place] [address] #### VD25H #### [facility] [address] [place] [address] Arterial Blood Gaseson 07-21 CO2 molar conc 29.8 mmol/L High 23.0-27.0 [facility] Comment on above: Performed By: #### T SGL #### [facility] [address] [place] [address] HCO3 molar conc (Bld) 28.7 mmol/L High 21.0-25.0 [facility] Comment on above: Performed By: #### T SGL #### [facility] [address] [place] [address] Hemoglobin mass conc (Bld) 11.7 g/dL Normal ScreenOnly [facility] Comment on above: Performed By: #### T SGL #### [facility] [address] [place] [address] Oxygen ppres (Bld) 144.9 mm[Hg] High 80.0-100.0 [facility] Comment on above: Performed By: #### T SGL #### [facility] [address] [place] [address] Oxygen saturation in Blood 98.4 % Normal 95.0-100.0 [facility] Comment on above: Performed By: #### T SGL #### [facility] [address] [place] [address] pCO2 36.8 mm[Hg] Normal 35.0-45.0 [facility] Comment on above: Performed By: #### T SGL #### [facility] [address] [place] [address] pH (Bld) 7.510 High 7.350-7.450 [facility] Comment on above: Performed By: #### T SGL #### [place] [address] [place] [address] Std Base Excess 5.5 mmol/L High -3.0-3.0 [facility] Comment on above: Performed By: #### T SGL #### [facility] [address] [place] [address] FIO2 .50 Normal [facility] Comment on above: Performed By: #### T SGL #### [facility] [address] [place] [address] CR Abdomen APon 07-21-2018 CR Abdomen AP Patient Name: KATHYA HOOPER Diagnostic Radiology Exam Date/Time 07/21/2018 06:41:07 EDT Exam CR Abdomen AP Ordering Physician JOYA ROJAS Accession Number [id number] CPT4 Codes 30823 () Reason For Exam ileus Report Reason for examination: Ileus. KUB of the abdomen is performed. Comparison is to the previous days examination. There is a PEG tube in the left upper quadrant, unchanged. There are are multiple gas filled loops of large bowel. A few mildly distended small bowel loops are noted. Compared to the previous examination there has been mild improvement. No obvious pathologic calcifications are seen. There are degenerative changes of the lumbar spine. Report Dictated on Final Dictated: 07/21/2018 7:23 am Dictating Physician: MD HOLDER LAUREN B Signed Date and Time: 07/21/2018 7:25 am Signed by: MD HOLDER LAUREN B Transcribed Date and Time: 07/21/2018 7:23 Normal [facility] CR Chest Portableon 07-22-19 19 CR Chest Portable Patient Name: KATHYA HOOPER Diagnostic Radiology Exam Date/Time 07/21/2018 06:40:50 EDT Exam CR Chest Portable Ordering Physician MARIA EUGENIA PEREZ Accession Number [id number] CPT4 Codes 69388 () Reason For Exam ETT placement Report CHEST: CLINICAL INDICATION: Respiratory failure TECHNIQUE: AP portable chest COMPARISON: 07/21/2018 FINDINGS: Unchanged tracheostomy cannula left PICC. The cardiomediastinal silhouette appears unchanged from the prior exam. Redemonstration of mild pulmonary edema, bibasilar atelectasis and a left basilar consolidation. Bilateral pleural effusions, left greater than right.. Degenerative postsurgical changes are seen in the visualized spine. IMPRESSION: No significant interval change compared to the prior study including pulmonary edema, bilateral pleural effusions, bibasilar atelectasis and left basilar consolidation. Support devices as described above. Report Dictated on Workstation: [id number] Final Dictated: 07/21/2018 5:38 am Dictating Physician: MD BOLAÑOS NICHOLAS Signed Date and Time: 07/21/2018 5:40 am Signed by: MD BOLAÑOS NICHOLAS Transcribed Date and Time: 07/21/2018 5:38 Normal [facility] CR Chest Portable Patient Name: KATHYA HOOPER Diagnostic Radiology Exam Date/Time 07/21/2018 01:11:50 EDT Exam CR Chest Portable Ordering Physician MD GRIFFIN NICHOLAS Accession Number [id number] CPT4 Codes 78633 () Reason For Exam s/p bronch Report CHEST: CLINICAL INDICATION: Status post bronchoscopy, respiratory failure TECHNIQUE: AP portable chest COMPARISON: 07/20/2018 FINDINGS: A tracheostomy cannula overlies the tracheal air column. A right PICC terminates overlying the right atrium The cardiomediastinal silhouette appears unchanged from the prior exam. There is bibasilar atelectasis. There is a superimposed left basilar consolidation. There is pulmonary venous congestion and mild pulmonary edema. There are bilateral pleural effusions, left greater than right. Degenerative change of the thoracic spine is noted. Postsurgical changes are seen in the cervical spine, as well as multiple surgical jada. IMPRESSION: 1. Bilateral pleural effusions, bibasilar atelectasis and left basilar consolidation. 2. Mild pulmonary edema. 3. Postsurgical changes. 4. Support devices as described above. Report Dictated on Workstation: [id number] Final Dictated: 07/21/2018 1:26 am Dictating Physician: MD BOLAÑOS NICHOLAS Signed Date and Time: 07/21/2018 1:29 am Signed by: MD BOLAÑOS NICHOLAS Transcribed Date and Time: 07/21/2018 1:26 Normal [facility] Comp Metabolic Panelon 07-21 Calcium mass conc 7.9 mg/dL Low 8.4-10.4 [facility] Comment on above: Performed By: #### T SGL #### [facility] [address] [place] [address] ALP enzyme act/vol 85 U/L Normal 38-126 [facility] Comment on above: Performed By: #### T SGL #### [facility] [address] [place] [address] ALT enzyme act/vol 105 U/L High 13-69 [facility] Comment on above: Performed By: #### T SGL #### [place] [address] [place] [address] Anion gap molar conc 8 Normal [facility] Comment on above: Performed By: #### T SGL #### [facility] [address] [place] [address] AST enzyme act/vol 78 U/L High 15-46 [facility] Comment on above: Performed By: #### T SGL #### [facility] [address] [place] [address] Bilirubin mass conc 1.1 mg/dL Normal 0.2-1.3 [facility] Comment on above: Performed By: #### T SGL #### [facility] [address] [place] [address] CO2 molar conc 33 mmol/L High 22-30 [facility] Comment on above: Performed By: #### T SGL #### [facility] [address] [place] [address] Creatinine mass conc 0.90 mg/dL Normal 0.52-1.25 [facility] Comment on above: Performed By: #### T SGL #### [facility] [address] [place] [address] GFR/1.73 sq M predicted among blacks MDRD vol rate/area (S/P/Bld) mL/min/{1.73_m2} Normal >60 [facility] Comment on above: Performed By: #### T SGL #### [facility] [address] [place] [address] GFR/1.73 sq M predicted among non-blacks MDRD vol rate/area (S/P/Bld) mL/min/{1.73_m2} Normal >[address] [facility] Comment on above: Result Comment: Sour ce- MDRD equation with creatinine calibration to IDMS(NKDEP) eGFR not recommended for drug dose adjustment Performed By: #### T SGL #### [place] [address] [place] [address] Glucose mass conc 113 mg/dL High 70-[address] [facility] Comment on above: Performed By: #### T SGL #### [place] [address] [place] [address] Protein mass conc 5.6 g/dL Low 6.3-8.[address] [facility] Comment on above: Performed By: #### T SGL #### [place] [address] [place] [address] Urea nitrogen mass conc 28 mg/dL High 7-20 S [facility] Comment on above: Performed By: #### T SGL #### [place] [address] [place] [address] Chloride molar conc 104 mmol/L Normal 98-107 [facility] Comment on above: Performed By: #### T SGL #### [place] [address] [place] [address] Potassium molar conc 3.6 mmol/L Normal 3.5-5.1 [facility] Comment on above: Performed By: #### T SGL #### [place] [address] [place] [address] Sodium molar conc 145 mmol/L Normal 135-[address] [facility] Comment on above: Performed By: #### T SGL #### [place] [address] [place] [address] Albumin mass conc 2.8 g/dL Low 3.5-5.[address] [facility] Comment on above: Performed By: #### T SGL #### [address] [place] [place] [address] Glucose,Bedsideon 07-21-2018 Glucose mass conc 124 mg/dL High 70-100 [facility] Comment on above: Result Comment: Test performed by glucose meter. Results may be 10%-15% lower than serum/plasma values. (CLIA ID [id number]) Performed By: #### H EMDF, PT, BMP3M, PHOS3, MG3, CK3 #### [employer] [address] #### VD25H #### [employer] [facility] [address] [place] [address] Glucose mass conc 151 mg/dL High 70-100 [facility] Comment on above: Result Comment: Test performed by glucose meter. Results may be 10%-15% lower than serum/plasma values. (CLIA ID [id number]) Performed By: #### H EMDF, PT, BMP3M, PHOS3, MG3, CK3 #### [employer] [address] #### VD25H #### [employer] [facility] [address] [place] [address] Glucose mass conc 127 mg/dL High 70-100 [facility] Comment on above: Result Comment: Test performed by glucose meter. Results may be 10%-15% lower than serum/plasma values. (CLIA ID [id number]) Performed By: #### T SGL #### [employer] [place] [address] [place] [address] Glucose mass conc 113 mg/dL High 70-100 [facility] Comment on above: Result Comment: Test performed by glucose meter. Results may be 10%-15% lower than serum/plasma values. (CLIA ID [id number]) Performed By: #### A DDON #### [employer] [address] Hemogram w/ Autodiffon 07-21 Abs Baso Cnt 0.1 10*3/uL Normal 0.0-0.2 [facility] Comment on above: Performed By: #### T SGL #### [employer] [address] [place] [address] Abs Neutrophile Cnt 11.0 10*3/uL High 1.8-7.0 [facility] Comment on above: Performed By: #### T SGL #### [address] [place] [address] Basophils/100 WBC (Bld) 0.5 % Normal 0.0-2.0 S [facility] Comment on above: Performed By: #### T SGL #### [address] [place] [address] Eosinophils #/vol (Bld) 0.3 10*3/uL Normal 0.0-0.5 [facility] Comment on above: Performed By: #### T SGL #### [address] [place] [address] Eosinophils/100 WBC (Bld) 1.9 % Normal 1.0-6.0 [facility] Comment on above: Performed By: #### T SGL #### [address] [place] [address] Erythrocyte distribution width Ratio (RBC) 13.7 % Normal 11.5-14.5 [facility] Comment on above: Performed By: #### T SGL #### [address] [place] [address] Granulocytes/100 WBC (Bld) 81.0 % High 40.0-80.0 [facility] Comment on above: Performed By: #### T SGL #### [address] [place] [address] Hematocrit Volume Fraction (Bld) 32.1 % Low 40.0-52.0 [facility] Comment on above: Performed By: #### T SGL #### [address] [place] [address] Hemoglobin mass conc (Bld) 10.7 g/dL Low 13.0-18.0 [facility] Comment on above: Performed By: #### T SGL #### [address] [place] [address] Lymphocytes #/vol (Bld) 1.3 10*3/uL Normal 1.0-4.3 [facility] Comment on above: Performed By: #### T SGL #### [facility] [address] [place] [address] Lymphocytes/100 WBC (Bld) 9.8 % Low 20.0-40.0 [facility] Comment on above: Performed By: #### T SGL #### [facility] [address] [place] [address] MCH Entitic mass (RBC) 29.0 pg Normal 26.0-34.0 [facility] Comment on above: Performed By: #### T SGL #### [address] [place] [address] MCHC mass conc (RBC) 33.4 % Normal 32.0-36.0 [facility] Comment on above: Performed By: #### T SGL #### [address] [place] [address] MCV Entitic volume (RBC) 86.9 fL Normal 80.0-98.0 [facility] Comment on above: Performed By: #### T SGL #### [address] [place] [address] Monocytes #/vol (Bld) 0.9 10*3/uL High 0.0-0.8 [facility] Comment on above: Performed By: #### T SGL #### [address] [place] [address] Monocytes/100 WBC (Bld) 6.8 % Normal 2.0-10.0 [facility] Comment on above: Performed By: #### T SGL #### [address] [place] [address] Platelet mean volume Entitic volume (Bld) 7.4 fL Normal 7.4-10.4 [facility] Comment on above: Performed By: #### T SGL #### [address] [place] [address] Platelets #/vol (Bld) 367 10*3/uL Normal 140-440 [facility] Comment on above: Performed By: #### T SGL #### [address] [place] [address] RBC #/vol (Bld) 3.69 10*6/uL Low 4.40-5.[address] [facility] Comment on above: Performed By: #### T SGL #### [facility] [address] [place] [address] WBC #/vol (Bld) 13.6 10*3/uL High 3.6-10.[address] [facility] Comment on above: Performed By: #### T SGL #### [facility] [address] [place] [address] Magnesiumon 07-21-2018 Magnesium mass conc 2.6 mg/dL High 1.6-2.3 [facility] Comment on above: Performed By: #### T SGL #### [facility] [address] [place] [address] Phosphoruson 07-21-2018 Phosphate mass conc 4.2 mg/dL Normal 2.5-4.5 [facility] Comment on above: Performed By: #### T SGL #### [address] [place] [address] Triglycerideon 07-21-2018 Triglyceride mass conc 105 mg/dL Normal <150 [facility] Comment on above: Performed By: #### T SGL #### [address] [place] [address] Add on test from HISon 07-20 Add on test from HIS Accepted Normal [facility] Comment on above: Result Comment: Spec imen available & acceptable for analysis. Performed By: #### A DDON #### [address] [place] [address] Basic Metabolic Panelon 06-30 Calcium mass conc 7.7 mg/dL Low 8.4-10.[address] [facility] Comment on above: Performed By: #### A DDON #### [address] [place] [address] Glucose mass conc 96 mg/dL Normal 70-[address] [facility] Comment on above: Performed By: #### A DDON #### [address] [place] Urea nitrogen mass conc 22 mg/dL High 7-20 S [facility] Comment on above: Performed By: #### A DDON #### [facility] [address] [place] [address] Anion gap molar conc 10 Normal [facility] Comment on above: Performed By: #### A DDON #### [facility] [address] [place] [address] CO2 molar conc 29 mmol/L Normal 22-30 [facility] Comment on above: Performed By: #### A DDON #### [facility] [address] [place] [address] Creatinine mass conc 0.87 mg/dL Normal 0.52-1.25 [facility] Comment on above: Performed By: #### A DDON #### [facility] [address] [place] [address] GFR/1.73 sq M predicted among blacks MDRD vol rate/area (S/P/Bld) mL/min/{1.73_m2} Normal >60 [facility] Comment on above: Performed By: #### A DDON #### [facility] [address] [place] [address] GFR/1.73 sq M predicted among non-blacks MDRD vol rate/area (S/P/Bld) mL/min/{1.73_m2} Normal >[address] [facility] Comment on above: Result Comment: Sour ce- MDRD equation with creatinine calibration to IDMS(NKDEP) eGFR not recommended for drug dose adjustment Performed By: #### A DDON #### [facility] [address] [place] [address] Potassium molar conc 3.6 mmol/L Normal 3.5-5.1 [facility] Comment on above: Performed By: #### A DDON #### [facility] [address] [place] [address] Chloride molar conc 105 mmol/L Normal 98-107 [facility] Comment on above: Performed By: #### A DDON #### [facility] [address] [place] [address] Sodium molar conc 144 mmol/L Normal 135-[address] [facility] Comment on above: Performed By: #### A DDON #### [address] [address] CR Abdomen APon 07-20-2018 CR Abdomen AP Patient Name: KATHYA HOOPER Diagnostic Radiology Exam Date/Time 07/20/2018 08:39:45 EDT Exam CR Abdomen AP Ordering Physician JOYA ROJAS Accession Number [id number] CPT4 Codes 24259 () Reason For Exam ileus Report Clinical Information: Abdominal distention. Ileus. Abdomen, KUB, portable, 0822 hours: AP supine portable views of the abdomen are compared to the examination of the previous day. Multiple dilated gas containing loops of large and small bowel are redemonstrated throughout the abdomen and upper pelvis similar to prior examination and compatible with ileus. There is a unchanged left-sided PEG tube. No other changes. Report Dictated on Final Dictated: 07/20/2018 9:29 am Dictating Physician: MD MENDES HARLAN Signed Date and Time: 07/20/2018 9:31 am Signed by: MD MENDES HARLAN Transcribed Date and Time: 07/20/2018 9:29 Normal [facility] CR Chest Portableon 07-21-19 19 CR Chest Portable Patient Name: KATHYA HOOPER Diagnostic Radiology Exam Date/Time 07/20/2018 08:39:26 EDT Exam CR Chest Portable Ordering Physician MARIA EUGENIA PEREZ Accession Number [id number] CPT4 Codes 43553 () Reason For Exam ETT placement Report CLINICAL INFORMATION: Respiratory distress. Chest x-ray, single view, portable, 0819 hours: AP portable view of the chest is compared to the examination of previous day. The patient exhibits a limited inspiratory volume and is rotated to the left. There is no change in the position of the tracheostomy tube or left subclavian PIC catheter. Pulmonary vascular congestion is similar. Small left pleural effusion also unchanged. No other acute process or interval change. Report Dictated on Final Dictated: 07/20/2018 9:28 am Dictating Physician: MD MENDES HARLAN Signed Date and Time: 07/20/2018 9:29 am Signed by: MD MENDES HARLAN Transcribed Date and Time: 07/20/2018 9:[address] [facility] [address] Abdomen/Pelvis w/ Contras ton 07-20-2018 CT Abdomen/Pelvis w/ Contrast Patient Name: KATHYA HOOPER CT Exam Date/Time 07/20/2018 11:30:[address] Abdomen/Pelvis w/ IV Contrast (IV Onl Ordering Physician [id number] [place] JOYA Accession Number [id number] CPT4 Codes 05545 (CT Abdomen/Pelvis w/ IV Contrast (IV Onl) Reason For Exam ileus Report CLINICAL INFORMATION: Abdominal and pelvic pain. Abdominal distention. Ileus. CT ABDOMEN AND PELVIS WITH INTRAVENOUS CONTRAST: Contrast: Isovue-370, [address] ABDOMEN: Volume acquisition CT images are obtained from diaphragm to iliac crests following enteric and intravenous contrast with axial, coronal and sagittal 2-D reconstructions. Findings pertaining to the lower chest are reported separately. Images through the upper abdomen are degraded by beam hardening artifact most likely from a combination of the patient's arms at his side and contact of the left side of the abdomen with the gantry. The liver, spleen, pancreas and kidneys are unremarkable in size, configuration and density. There is mild dilatation of both renal pelves and proximal ureters extending into the pelvis. 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 There is a mildly distended gallbladder with tortuosity of the neck and possibly dilatation of the proximal cystic duct. No calcified calculi, wall thickening or adjacent inflammation is seen. There is a PEG tube with the mushroom tip in the gastric fundus. The stomach is mildly dilated. There are dilated gas containing loops of anterior abdominal bowel which appeared of the redundant transverse colon and hepatic flexure. There are a few mildly dilated fluid containing loops of mid abdominal small bowel. Additional loops of abdominal small bowel are normal in caliber containing enteric contrast. No ascites or retroperitoneal lymphadenopathy is seen. No focal mass, fluid collection or inflammatory changes are identified. There is mild atherosclerotic calcification of a normal caliber abdominal aorta extending to the bifurcation. CT PELVIS: Volume acquisition CT images were obtained from the iliac crests to the symphysis pubis following enteric and intravenous contrast with axial, coronal and sagittal 2-D reconstructions. There is a distended unopacified urinary bladder without calcified calculus or other visible abnormality. The pelvic ureters are mildly dilated extending to the urinary bladder without calcified calculi. The prostate is enlarged. No focal mass or fluid collection is seen. There is no iliac or inguinal lymphadenopathy. No ascites or inflammatory changes are identified. IMPRESSION: 1. Images through the abdomen are degraded by beam hardening artifact to be secondary from factors described above. 2. Mild nonspecific dilatation of gas containing loops of bowel in the anterior mid abdomen thought to be transverse colon possibly redundant splenic flexure rather than small bowel. There are a few nonspecific mildly dilated fluid containing loops of mid abdominal small bowel. 3. 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 4. Mildly dilated gallbladder with tortuosity of the neck and possibly dilatation of the proximal cystic duct without calcified calculus. 5. Distended urinary bladder of undefined etiology with mild hydronephrosis and ureteral dilatation. No calcified calculi are identified. 6. No evidence of mass, lymphadenopathy or inflammatory changes. Report Dictated on Final Dictated: 07/20/2018 1:10 pm Dictating Physician: MD MENDES HARLAN Signed Date and Time: 07/20/2018 1:24 pm Signed by: MD MENDES HARLAN Transcribed Date and Time: 07/20/2018 1:[address] [facility] [address] Chest w/ Contraston 07-20 CT Chest w/ Contrast Patient Name: KATHYA RAY CT Exam Date/Time 07/20/2018 11:30:[address] Chest w/ Contrast Ordering Physician [id number] AGUILERA Accession Number [id number] CPT4 Codes 87637 (), Q9967 (CT ISOVUE 370MG/[id number]) Reason For Exam SOB, possible pneumonia Report CLINICAL INFORMATION: Shortness of breath. Respiratory distress. CT CHEST WITH INTRAVENOUS CONTRAST: Contrast: Isovue-370, [address] images were obtained from thoracic inlet to the diaphragm following intravenous contrast with axial, coronal and sagittal 2-D reconstructions. The patient exhibits low lung volumes. There is elevation the right hemidiaphragm. Images through the lower hemithorax are degraded by beam hardening artifact could be from the patient's arms and possibly contact with the left side of the gantry. There is a tracheostomy tube with the tip appearing to be the level of the top of the alma. There are moderate left and small right pleural fusions with dense bilateral lower lobe air bronchogram containing consolidations consistent with compressive atelectasis although underlying pneumonia is not excluded on either or both sides. There is a smaller consolidation in the posterior aspect of the left upper lobe most likely dependent and/or compressive atelectasis. No parenchymal mass or nodule is seen in either lung. No mediastinal or hilar lymphadenopathy or mass is seen. There is no axillary or supraclavicular fossa mass or lymphadenopathy. Findings pertaining to the upper abdomen are reported separately. IMPRESSION: 1. Low lung volumes and elevation the right hemidiaphragm. 2. Image degrading artifacts as described. 3. Moderate left and small right pleural effusions with dense bilateral lower lobe and bronchogram containing consolidations most likely compressive and dependent atelectasis well underlying pneumonia is not excluded. 4. Small consolidation in the left upper lobe adjacent to the pleural fluid most likely compressive and/or dependent atelectasis. 5. No evidence of parenchymal lung mass or mediastinal/hilar lymphadenopathy. 6. Tracheostomy tube with the tip appearing to be near the top of the alma. Report Dictated on Final Dictated: 07/20/2018 1:28 pm Dictating Physician: MD MENDES HARLAN Signed Date and Time: 07/20/2018 1:34 pm Signed by: MD MENDES HARLAN Transcribed Date and Time: 07/20/2018 1:28 Normal [facility] Glucose,Bedsideon 07-20-2018 Glucose mass conc 128 mg/dL High 70-[address] [facility] Comment on above: Result Comment: Test performed by glucose meter. Results may be 10%-15% lower than serum/plasma values. (CLIA ID [id number]) Performed By: #### A DDON #### [address] Hemogram w/ Autodiffon 07-20 Abs Baso Cnt 0.1 10*3/uL Normal 0.0-0.2 [facility] Comment on above: Performed By: #### H EMDF, PT, BMP3M, PHOS3, MG3, CK3 #### [address] #### VD25H #### [facility] [address] [place] [facility] [place] [address] Abs Neutrophile Cnt 13.0 10*3/uL High 1.8-7.0 [facility] Comment on above: Performed By: #### H EMDF, PT, BMP3M, PHOS3, MG3, CK3 #### [address] #### VD25H #### [place] [place] [place] [address] Basophils/100 WBC (Bld) 0.3 % Normal 0.0-2.0 S [facility] Comment on above: Performed By: #### H EMDF, PT, BMP3M, PHOS3, MG3, CK3 #### [address] #### VD25H #### [facility] [address] [place] [facility] [place] [address] Eosinophils #/vol (Bld) 0.3 10*3/uL Normal 0.0-0.5 [facility] Comment on above: Performed By: #### H EMDF, PT, BMP3M, PHOS3, MG3, CK3 #### [address] #### VD25H #### [facility] [address] [place] [address] Eosinophils/100 WBC (Bld) 1.9 % Normal 1.0-6.0 [facility] Comment on above: Performed By: #### H EMDF, PT, BMP3M, PHOS3, MG3, CK3 #### [address] [place], [place] #### VD25H #### [facility] [address] [place] [address] Erythrocyte distribution width Ratio (RBC) 13.3 % Normal 11.5-14.5 [facility] Comment on above: Performed By: #### H EMDF, PT, BMP3M, PHOS3, MG3, CK3 #### [address] [place], [place] #### VD25H #### [facility] [address] [place] [address] Granulocytes/100 WBC (Bld) 81.8 % High 40.0-80.0 [facility] Comment on above: Performed By: #### H EMDF, PT, BMP3M, PHOS3, MG3, CK3 #### [address] #### VD25H #### [facility] [address] [place] [address] Hematocrit Volume Fraction (Bld) 33.6 % Low 40.0-52.0 [facility] Comment on above: Performed By: #### H EMDF, PT, BMP3M, PHOS3, MG3, CK3 #### [address] #### VD25H #### [facility] [address] [place] [address] Hemoglobin mass conc (Bld) 11.4 g/dL Low 13.0-18.0 [facility] Comment on above: Performed By: #### H EMDF, PT, BMP3M, PHOS3, MG3, CK3 #### [address] [address] [place] #### VD25H #### [facility] [address] [place] [address] Lymphocytes #/vol (Bld) 1.5 10*3/uL Normal 1.0-4.3 [facility] Comment on above: Performed By: #### H EMDF, PT, BMP3M, PHOS3, MG3, CK3 #### [address] [place], [place] #### VD25H #### [facility] [address] [place] [address] Lymphocytes/100 WBC (Bld) 9.2 % Low 20.0-40.0 [facility] Comment on above: Performed By: #### H EMDF, PT, BMP3M, PHOS3, MG3, CK3 #### [address] [place], [place] #### VD25H #### [facility] [address] [place] [address] MCH Entitic mass (RBC) 29.3 pg Normal 26.0-34.0 [facility] Comment on above: Performed By: #### H EMDF, PT, BMP3M, PHOS3, MG3, CK3 #### [address] #### VD25H #### [facility] [address] [place] [address] MCHC mass conc (RBC) 33.9 % Normal 32.0-36.0 [facility] Comment on above: Performed By: #### H EMDF, PT, BMP3M, PHOS3, MG3, CK3 #### [address] #### VD25H #### [facility] [address] [place] [address] MCV Entitic volume (RBC) 86.5 fL Normal 80.0-98.0 [facility] Comment on above: Performed By: #### H EMDF, PT, BMP3M, PHOS3, MG3, CK3 #### [address] #### VD25H #### [facility] [address] [place] [address] Monocytes #/vol (Bld) 1.1 10*3/uL High 0.0-0.8 [facility] Comment on above: Performed By: #### H EMDF, PT, BMP3M, PHOS3, MG3, CK3 #### [facility] [address] [place] #### VD25H #### [facility] [address] [place] [address] Monocytes/100 WBC (Bld) 6.8 % Normal 2.0-10.0 S [facility] Comment on above: Performed By: #### H EMDF, PT, BMP3M, PHOS3, MG3, CK3 #### [address] [place], [place] #### VD25H #### [facility] [address] [place] [address] Platelet mean volume Entitic volume (Bld) 7.5 fL Normal 7.4-10.4 [facility] Comment on above: Performed By: #### H EMDF, PT, BMP3M, PHOS3, MG3, CK3 #### [address] #### VD25H #### [facility] [address] [place] [address] Platelets #/vol (Bld) 375 10*3/uL Normal 140-440 [facility] Comment on above: Performed By: #### H EMDF, PT, BMP3M, PHOS3, MG3, CK3 #### [address] [facility], [place] #### VD25H #### [facility] [address] [place] [address] RBC #/vol (Bld) 3.88 10*6/uL Low 4.40-5.[address] [facility] Comment on above: Performed By: #### H EMDF, PT, BMP3M, PHOS3, MG3, CK3 #### [address], [place] #### VD25H #### [facility] [address] [place] [address] WBC #/vol (Bld) 15.9 10*3/uL High 3.6-10.7 [facility] Comment on above: Performed By: #### H EMDF, PT, BMP3M, PHOS3, MG3, CK3 #### [address] #### VD25H #### [facility] [address] [place] [address] Phosphoruson 07-20-2018 Phosphate mass conc 5.5 mg/dL High 2.5-4.5 [facility] Comment on above: Performed By: #### A DDON #### [address] Add on test from HISon 07-19 Add on test from HIS Accepted Normal [facility] Comment on above: Result Comment: Spec imen available & acceptable for analysis. Performed By: #### H EMDF, PT, BMP3M, PHOS3, MG3, CK3 #### [address] #### VD25H #### [facility] [address] [place] [address] Arterial Blood Gaseson 07-19 CO2 molar conc 31.5 mmol/L High 23.0-27.0 [facility] Comment on above: Performed By: #### H EMDF, PT, BMP3M, PHOS3, MG3, CK3 #### [address] #### VD25H #### [facility] [address] [place] [address] HCO3 molar conc (Bld) 30.2 mmol/L High 21.0-25.0 [facility] Comment on above: Performed By: #### H EMDF, PT, BMP3M, PHOS3, MG3, CK3 #### [address] #### VD25H #### [facility] [address] [place] [address] Hemoglobin mass conc (Bld) 11.7 g/dL Normal ScreenOnly [facility] Comment on above: Performed By: #### H EMDF, PT, BMP3M, PHOS3, MG3, CK3 #### [facility] [address] [place] #### VD25H #### [facility] [address] [place] [address] Oxygen ppres (Bld) 85.1 mm[Hg] Normal 80.0-100.0 [facility] Comment on above: Performed By: #### H EMDF, PT, BMP3M, PHOS3, MG3, CK3 #### [address] [place], [place] #### VD25H #### [facility] [address] [place] [address] Oxygen saturation in Blood 95.9 % Normal 95.0-100.0 [facility] Comment on above: Performed By: #### H EMDF, PT, BMP3M, PHOS3, MG3, CK3 #### [address] [place] #### VD25H #### [facility] [address] [place] [address] pCO2 43.6 mm[Hg] Normal 35.0-45.0 [facility] Comment on above: Performed By: #### H EMDF, PT, BMP3M, PHOS3, MG3, CK3 #### [facility] [address] [place] #### VD25H #### [facility] [address] [place] [address] pH (Bld) 7.458 High 7.350-7.450 [facility] Comment on above: Performed By: #### H EMDF, PT, BMP3M, PHOS3, MG3, CK3 #### [address] [address] [facility], [place] #### VD25H #### [facility] [address] [place] [address] Std Base Excess 5.7 mmol/L High -3.0-3.0 [facility] Comment on above: Performed By: #### H EMDF, PT, BMP3M, PHOS3, MG3, CK3 #### [facility] [address] [facility], [place] #### VD25H #### [facility] [address] [place] [address] FIO2 40% Normal [facility] Comment on above: Performed By: #### H EMDF, PT, BMP3M, PHOS3, MG3, CK3 #### [address] [address] [facility], [place] #### VD25H #### [facility] [address] [place] [address] Basic Metabolic Panelon 03-2 Calcium mass conc 7.5 mg/dL Low 8.4-10.4 [facility] Comment on above: Performed By: #### H EMDF, PT, BMP3M, PHOS3, MG3, CK3 #### [place] [address] [address] [facility], [place] #### VD25H #### [facility] [address] [place] [address] Glucose mass conc 274 mg/dL High 70-100 [facility] Comment on above: Performed By: #### H EMDF, PT, BMP3M, PHOS3, MG3, CK3 #### [place] [address] [address] [facility], [place] #### VD25H #### [facility] [address] [place] [address] Anion gap molar conc 6 Normal [facility] Comment on above: Performed By: #### H EMDF, PT, BMP3M, PHOS3, MG3, CK3 #### [place] [address] [address] [facility], [place] #### VD25H #### [facility] [address] [place] [address] CO2 molar conc 31 mmol/L High 22-30 [facility] Comment on above: Performed By: #### H EMDF, PT, BMP3M, PHOS3, MG3, CK3 #### [address] [address] #### VD25H #### [facility] [address] [place] [address] Creatinine mass conc 0.64 mg/dL Normal 0.52-1.25 [facility] Comment on above: Performed By: #### H EMDF, PT, BMP3M, PHOS3, MG3, CK3 #### [address] [address] #### VD25H #### [facility] [address] [place] [address] GFR/1.73 sq M predicted among blacks MDRD vol rate/area (S/P/Bld) mL/min/{1.73_m2} Normal >60 [facility] Comment on above: Performed By: #### H EMDF, PT, BMP3M, PHOS3, MG3, CK3 #### [address] [address] #### VD25H #### [facility] [address] [place] [address] GFR/1.73 sq M predicted among non-blacks MDRD vol rate/area (S/P/Bld) mL/min/{1.73_m2} Normal >[address] [facility] Comment on above: Result Comment: Sour ce- MDRD equation with creatinine calibration to IDMS(NKDEP) eGFR not recommended for drug dose adjustment Performed By: #### H EMDF, PT, BMP3M, PHOS3, MG3, CK3 #### [address] [address] #### VD25H #### [facility] [address] [place] [address] Urea nitrogen mass conc 15 mg/dL Normal 7-20 S [facility] Comment on above: Performed By: #### H EMDF, PT, BMP3M, PHOS3, MG3, CK3 #### [address] [place] [address] #### VD25H #### [facility] [address] [place] [address] Chloride molar conc 105 mmol/L Normal 98-107 [facility] Comment on above: Performed By: #### H EMDF, PT, BMP3M, PHOS3, MG3, CK3 #### [facility] [address] [place] [address] #### VD25H #### [facility] [address] [place] [address] Potassium molar conc 4.3 mmol/L Normal 3.5-5.1 [facility] Comment on above: Performed By: #### H EMDF, PT, BMP3M, PHOS3, MG3, CK3 #### [facility] [address] [place] [address] #### VD25H #### [facility] [address] [place] [address] Sodium molar conc 141 mmol/L Normal 135-145 [facility] Comment on above: Performed By: #### H EMDF, PT, BMP3M, PHOS3, MG3, CK3 #### [facility] [address] [place] [address] #### VD25H #### [facility] [address] [place] [address] CR Abdomen APon 07-19-2018 CR Abdomen AP Patient Name: KATHYA HOOPER Diagnostic Radiology Exam Date/Time 07/19/2018 06:44:12 EDT Exam CR Abdomen AP Ordering Physician JOYA ROJAS Accession Number [id number] CPT4 Codes 79876 () Reason For Exam ileus Report Abdomen: 07/19/2018. Clinical Information: Distention. Findings: A single supine view of the abdomen was compared to the prior day's study. The feeding tube in the left upper quadrant is unchanged. There continues to be dilated loops of both large and small bowel similar to the prior study most likely consistent with an ileus. Report Dictated on Final Dictated: 07/19/2018 7:46 am Dictating Physician: MD JOHNSON RISA Signed Date and Time: 07/19/2018 7:46 am Signed by: MD JOHNSON RISA Transcribed Date and Time: 07/19/2018 7:46 Normal [facility] CR Chest Portableon 07-20-19 19 CR Chest Portable Patient Name: KATHYA HOOPER Diagnostic Radiology Exam Date/Time 07/19/2018 06:43:52 EDT Exam CR Chest Portable Ordering Physician MARIA EUEGNIA PEREZ Accession Number [id number] CPT4 Codes 79631 () Reason For Exam ETT placement Report Portable chest 07/19/2018: Clinical Information: Respiratory distress. Findings: A single AP portable view of the chest was obtained at 557 hours. Comparison was made to the prior study prior day. The tracheostomy tube and left-sided PICC line are unchanged. There continues to be increased density behind the heart on the left consistent with left lower lobe atelectasis, effusion or infiltrate. There is haziness in both lung bases suggesting layering of bilateral pleural effusions. The pulmonary vasculature does not appear congested. Report Dictated on Final Dictated: 07/19/2018 7:44 am Dictating Physician: MD JOHNSON RISA Signed Date and Time: 07/19/2018 7:45 am Signed by: MD JOHNSON RISA Transcribed Date and Time: 07/19/2018 7:44 Normal [facility] Glucose,Bedsideon 07-19-2018 Glucose mass conc 95 mg/dL Normal 70-100 [facility] Comment on above: Result Comment: Test performed by glucose meter. Results may be 10%-15% lower than serum/plasma values. (CLIA ID [id number]) Performed By: #### H EMDF, PT, BMP3M, PHOS3, MG3, CK3 #### [facility] [address] [place] [address] #### VD25H #### [facility] [address] [place] [address] Hemogram w/ Autodiffon 07-19 Abs Baso Cnt 0.1 10*3/uL Normal 0.0-0.2 [facility] Comment on above: Performed By: #### H EMDF, PT, BMP3M, PHOS3, MG3, CK3 #### [facility] [address] [place] #### VD25H #### [facility] [address] [place] [address] Abs Neutrophile Cnt 9.8 10*3/uL High 1.8-7.0 [facility] Comment on above: Performed By: #### H EMDF, PT, BMP3M, PHOS3, MG3, CK3 #### [address] #### VD25H #### [facility] [address] [place] [address] Basophils/100 WBC (Bld) 0.5 % Normal 0.0-2.0 [facility] Comment on above: Performed By: #### H EMDF, PT, BMP3M, PHOS3, MG3, CK3 #### [address] #### VD25H #### [facility] [address] [place] [place] [address] Eosinophils #/vol (Bld) 0.3 10*3/uL Normal 0.0-0.5 [facility] Comment on above: Performed By: #### H EMDF, PT, BMP3M, PHOS3, MG3, CK3 #### [address] #### VD25H #### [facility] [address] [place] [place] [address] Eosinophils/100 WBC (Bld) 2.5 % Normal 1.0-6.0 [facility] Comment on above: Performed By: #### H EMDF, PT, BMP3M, PHOS3, MG3, CK3 #### [address] #### VD25H #### [facility] [address] [place] [address] Erythrocyte distribution width Ratio (RBC) 13.3 % Normal 11.5-14.5 [facility] Comment on above: Performed By: #### H EMDF, PT, BMP3M, PHOS3, MG3, CK3 #### [place] [address] [place], [place] #### VD25H #### [facility] [address] [place] [address] Granulocytes/100 WBC (Bld) 80.4 % High 40.0-80.0 [facility] Comment on above: Performed By: #### H EMDF, PT, BMP3M, PHOS3, MG3, CK3 #### [address] [place], [place] #### VD25H #### [facility] [address] [place] [address] Hematocrit Volume Fraction (Bld) 30.6 % Low 40.0-52.0 [facility] Comment on above: Performed By: #### H EMDF, PT, BMP3M, PHOS3, MG3, CK3 #### [address] [place], [place] #### VD25H #### [facility] [address] [place] [address] Hemoglobin mass conc (Bld) 10.5 g/dL Low 13.0-18.0 [facility] Comment on above: Performed By: #### H EMDF, PT, BMP3M, PHOS3, MG3, CK3 #### [address] #### VD25H #### [facility] [address] [place] [address] Lymphocytes #/vol (Bld) 1.1 10*3/uL Normal 1.0-4.3 [facility] Comment on above: Performed By: #### H EMDF, PT, BMP3M, PHOS3, MG3, CK3 #### [address] [place] #### VD25H #### [facility] [address] [place] [address] Lymphocytes/100 WBC (Bld) 9.1 % Low 20.0-40.0 [facility] Comment on above: Performed By: #### H EMDF, PT, BMP3M, PHOS3, MG3, CK3 #### [address] [place], [place] #### VD25H #### [facility] [address] [place] [address] MCH Entitic mass (RBC) 29.7 pg Normal 26.0-34.0 [facility] Comment on above: Performed By: #### H EMDF, PT, BMP3M, PHOS3, MG3, CK3 #### [address] #### VD25H #### [place] [address] [place] [address] MCHC mass conc (RBC) 34.3 % Normal 32.0-36.0 [facility] Comment on above: Performed By: #### H EMDF, PT, BMP3M, PHOS3, MG3, CK3 #### [address] #### VD25H #### [facility] [address] [place] [address] MCV Entitic volume (RBC) 86.7 fL Normal 80.0-98.0 [facility] Comment on above: Performed By: #### H EMDF, PT, BMP3M, PHOS3, MG3, CK3 #### [address] #### VD25H #### [facility] [address] [place] [address] Monocytes #/vol (Bld) 0.9 10*3/uL High 0.0-0.8 [facility] Comment on above: Performed By: #### H EMDF, PT, BMP3M, PHOS3, MG3, CK3 #### [facility] [address] [place], [place] #### VD25H #### [facility] [address] [place] [address] Monocytes/100 WBC (Bld) 7.5 % Normal 2.0-10.0 [facility] Comment on above: Performed By: #### H EMDF, PT, BMP3M, PHOS3, MG3, CK3 #### [address] [place] [place], [place] #### VD25H #### [facility] [address] [place] [address] Platelet mean volume Entitic volume (Bld) 7.3 fL Low 7.4-10.4 [facility] Comment on above: Performed By: #### H EMDF, PT, BMP3M, PHOS3, MG3, CK3 #### [address] #### VD25H #### [facility] [address] [place] [address] Platelets #/vol (Bld) 329 10*3/uL Normal 140-440 [facility] Comment on above: Performed By: #### H EMDF, PT, BMP3M, PHOS3, MG3, CK3 #### [address] #### VD25H #### [facility] [address] [place] [address] RBC #/vol (Bld) 3.53 10*6/uL Low 4.40-5.[address] [facility] Comment on above: Performed By: #### H EMDF, PT, BMP3M, PHOS3, MG3, CK3 #### [address] [place], [place] #### VD25H #### [facility] [address] [place] [address] WBC #/vol (Bld) 12.2 10*3/uL High 3.6-10.[address] [facility] Comment on above: Performed By: #### H EMDF, PT, BMP3M, PHOS3, MG3, CK3 #### [address] #### VD25H #### [facility] [address] [place] [address] Magnesiumon 07-19-2018 Magnesium mass conc 2.3 mg/dL Normal 1.6-2.3 [facility] Comment on above: Performed By: #### H EMDF, PT, BMP3M, PHOS3, MG3, CK3 #### [address] #### VD25H #### [address] [place] [address] Procalcitoninon 07-19-2018 Protein mass conc 0.15 ng/mL Abnormal <0.10 [facility] Comment on above: Performed By: #### H EMDF, PT, BMP3M, PHOS3, MG3, CK3 #### [address] #### VD25H #### [facility] [address] [place] [address] Interpretation See Below Normal [facility] Comment on above: Result Comment: PCT <0.50 = Low risk of severe sepsis and/or septic shock. PCT >2.00 = High risk of severe sepsis and/or septic shock. Performed By: #### H EMDF, PT, BMP3M, PHOS3, MG3, CK3 #### [address] #### VD25H #### [facility] [address] [place] [address] VL Venous Duplex US Lower Ex t Bilateralon 07-19-2018 VL Venous Duplex US Lower Ext Bilateral Patient Name: KATHYA HOOPER Ultrasound Exam Date/Time 07/19/2018 11:10:14 EDT Exam VL Venous Duplex US Lower Ext Bilateral Ordering Physician ETIENNE MARTÍNEZ JULIE Accession Number [id number] CPT4 Codes 47680 () Reason For Exam edema Report [facility] --- Lower Extremity Venous Duplex Report Patient Name: Kathya Hopoer : 1955 Study Date: 07/19/2018 W (63yrs) Age: 63 Account: [id number] Gender: M Loc: [id number] BP: Ordering: Yesenia Martínez Technologist: Ordering Physician: Yesenia Martínez Metal Burrer: León Chaidez RVT [facility] Interpreting Physician: Ricardo Hall MD --- Location: [facility] --- INDICATIONS: Edema. bilateral calf edema. --- CONCLUSIONS 1. This is a normal study. --- IMPRESSIONS: - The superficial and deep systems of the bilateral lower extremities appear to be free of thrombus. - This is a normal study. --- STUDY DATA: Complete lower extremity venous duplex evaluation. Birthdate: Patient birthdate: 1955. Age: Patient is 63 yr old. Sex: Gender: male. Ethnicity: Ethnicity: white. Doppler flow study including spectral analysis, color and boland scale imaging. Patient status: Inpatient. Procedure: A vascular evaluation was performed. The images were obtained using a Innovate2 E9 vascular ultrasound machine. --- VENOUS FLOW AND IMAGING: + ---------+-------+--- --+ !Location !Overall!Flow properties ! + ---------+-------+--- --+ !Right common femoral !Patent !Normal phasicity; spontaneous; normal ! ! ! !augmentation; compressible ! + ---------+-------+--- --+ !Right saphenofemoral junction!Patent !Compressible ! + ---------+-------+--- --+ !Right profunda femoral !Patent ! --! + ---------+-------+--- --+ !R femoral proximal !Patent !Compressible ! + ---------+-------+--- --+ !R femoral mid !Patent !Normal phasicity; spontaneous; normal ! ! ! !augmentation; compressible ! + ---------+-------+--- --+ !R femoral distal !Patent !Compressible ! + ---------+-------+--- --+ !Right popliteal !Patent !Normal phasicity; spontaneous; normal ! ! ! !augmentation; compressible ! + ---------+-------+--- --+ !Right gastrocnemius !Patent !Compressible ! + ---------+-------+--- --+ !Right posterior tibial !Patent !Compressible ! + ---------+-------+--- --+ !Right peroneal !Patent !Compressible ! + ---------+-------+--- --+ !Right soleal !Patent !Compressible ! + ---------+-------+--- --+ !Right greater saphenous !Patent !Compressible ! + ---------+-------+--- --+ !Left common femoral !Patent !Normal phasicity; spontaneous; normal ! ! ! !augmentation; compressible ! + ---------+-------+--- --+ !Left saphenofemoral junction !Patent !Compressible ! + ---------+-------+--- --+ !Left profunda femoral !Patent ! --! + ---------+-------+--- --+ !L femoral proximal !Patent !Compressible ! + ---------+-------+--- --+ !L femoral mid !Patent !Normal phasicity; spontaneous; normal ! ! ! !augmentation; compressible ! + ---------+-------+--- --+ !L femoral distal !Patent !Compressible ! + ---------+-------+--- --+ !Left popliteal !Patent !Normal phasicity; spontaneous; normal ! ! ! !augmentation; compressible ! + ---------+-------+--- --+ !Left gastrocnemius !Patent !Compressible ! + ---------+-------+--- --+ !Left posterior tibial !Patent !Compressible ! + ---------+-------+--- --+ !Left peroneal !Patent !Compressible ! + ---------+-------+--- --+ !Left soleal !Patent !Compressible ! + ---------+-------+--- --+ !Left greater saphenous !Patent !Compressible ! + ---------+-------+--- --+ Electronically signed by: Ricardo Hall MD [id number] Final Dictated: 07/20/2018 10:49 am Dictating Physician: RICARDO HALL Signed Date and Time: 07/19/2018 11:03 am Signed by: RICARDO HALL Normal [facility] Basic Metabolic Panelon 03-2 Calcium mass conc 7.9 mg/dL Low 8.4-10.4 [facility] Comment on above: Performed By: #### H EMDF, PT, BMP3M, PHOS3, MG3, CK3 #### [facility] [address] [place] [address] #### VD25H #### [employer] [address] [place] [address] Glucose mass conc 113 mg/dL High 70-100 [facility] Comment on above: Performed By: #### H EMDF, PT, BMP3M, PHOS3, MG3, CK3 #### [place] [place], [place] #### VD25H #### [facility] [address] [place] [address] Anion gap molar conc 7 Normal [facility] Comment on above: Performed By: #### H EMDF, PT, BMP3M, PHOS3, MG3, CK3 #### [address] [place] [place] #### VD25H #### [facility] [address] [place] [address] CO2 molar conc 31 mmol/L High 22-30 [facility] Comment on above: Performed By: #### H EMDF, PT, BMP3M, PHOS3, MG3, CK3 #### [address] #### VD25H #### [facility] [address] [place] [address] Creatinine mass conc 0.59 mg/dL Normal 0.52-1.25 [facility] Comment on above: Performed By: #### H EMDF, PT, BMP3M, PHOS3, MG3, CK3 #### [address] [place], [place] #### VD25H #### [facility] [address] [place] [address] GFR/1.73 sq M predicted among blacks MDRD vol rate/area (S/P/Bld) mL/min/{1.73_m2} Normal >60 [facility] Comment on above: Performed By: #### H EMDF, PT, BMP3M, PHOS3, MG3, CK3 #### [address] #### VD25H #### [facility] [address] [place] [address] GFR/1.73 sq M predicted among non-blacks MDRD vol rate/area (S/P/Bld) mL/min/{1.73_m2} Normal >[address] [facility] Comment on above: Result Comment: Sour ce- MDRD equation with creatinine calibration to IDMS(NKDEP) eGFR not recommended for drug dose adjustment Performed By: #### H EMDF, PT, BMP3M, PHOS3, MG3, CK3 #### [facility] [address] [place] #### VD25H #### [facility] [address] [place] [address] Urea nitrogen mass conc 19 mg/dL Normal 7-20 S [facility] Comment on above: Performed By: #### H EMDF, PT, BMP3M, PHOS3, MG3, CK3 #### [place] [address] [facility] [place] #### VD25H #### [facility] [address] [place] [address] Chloride molar conc 104 mmol/L Normal 98-107 [facility] Comment on above: Performed By: #### H EMDF, PT, BMP3M, PHOS3, MG3, CK3 #### [place] [address] [facility] [place] #### VD25H #### [facility] [address] [place] [address] Potassium molar conc 3.4 mmol/L Low 3.5-5.1 [facility] Comment on above: Performed By: #### H EMDF, PT, BMP3M, PHOS3, MG3, CK3 #### [place] [address] [facility], [place] #### VD25H #### [facility] [address] [place] [address] Sodium molar conc 142 mmol/L Normal 135-145 [facility] Comment on above: Performed By: #### H EMDF, PT, BMP3M, PHOS3, MG3, CK3 #### [place] [address] [facility], [place] #### VD25H #### [facility] [address] [place] [address] CR Abdomen APon 07-18-2018 CR Abdomen AP Patient Name: KATHYA HOOPER Diagnostic Radiology Exam Date/Time 07/18/2018 06:52:18 EDT Exam CR Abdomen AP Ordering Physician [id number] AGUILERA Accession Number [id number] CPT4 Codes 77702 () Reason For Exam ileus Report CLINICAL INFORMATION: Abdominal pain and distention. G-tube. KUB is provided. The examination is compared to a previous study dated 07/17/2018. FINDINGS: Percutaneous gastrostomy tube overlies the left upper quadrant. Air is noted moderate diffusely dilated small bowel loops. Air and stool are noted in nondistended loops of colon to the level of the rectum. IMPRESSION: 1. Moderate diffuse dilatation of small bowel loops. The pattern is similar to yesterday's study. 2. Significant air-fluid levels or free air cannot be evaluated on this supine-only study. Report Dictated on Final Dictated: 07/18/2018 2:33 pm Dictating Physician: MD JERNIGAN JEFFREY Signed Date and Time: 07/18/2018 2:34 pm Signed by: MD JERNIGAN JEFFREY Transcribed Date and Time: 07/18/2018 2:33 Normal [facility] CR Chest Portableon 07-19-19 19 CR Chest Portable Patient Name: KATHYA HOOPER Diagnostic Radiology Exam Date/Time 07/18/2018 06:52:50 EDT Exam CR Chest Portable Ordering Physician MARIA EUGENIA PEREZ Accession Number [id number] CPT4 Codes 61644 () Reason For Exam ETT placement Report CLINICAL INFORMATION: Respiratory distress. Portable view of the chest at 0600 hours is provided and compared to a previous study dated July 17, 2018. FINDINGS: A midline tracheostomy tube is in place. A PICC line is noted via left arm. The distal tip is in the superior vena cava. The cardiac silhouette and mediastinum are otherwise unremarkable. Bibasilar infiltrates and effusions are redemonstrated, left greater the right. There is mild prominence of the central pulmonary vasculature. The pattern is unchanged. IMPRESSION: 1. Bibasilar infiltrates and effusions, left greater than right. 2. Prominence of the central pulmonary vasculature consistent with mild congestive heart failure/fluid overload. 3. No significant change from yesterday's study. Report Dictated on Final Dictated: 07/18/2018 2:32 pm Dictating Physician: MD JERNIGAN JEFFREY Signed Date and Time: 07/18/2018 2:33 pm Signed by: MD JERNIGAN JEFFREY Transcribed Date and Time: 07/18/2018 2:32 Normal [facility] Hemogram w/ Autodiffon 07-18 Abs Baso Cnt 0.0 10*3/uL Normal 0.0-0.2 [facility] Comment on above: Performed By: #### H EMDF, PT, BMP3M, PHOS3, MG3, CK3 #### [address] #### VD25H #### [facility] [address] [place] [address] Abs Neutrophile Cnt 8.6 10*3/uL High 1.8-7.0 [facility] Comment on above: Performed By: #### H EMDF, PT, BMP3M, PHOS3, MG3, CK3 #### [facility] [address] [place], [place] #### VD25H #### [facility] [address] [place] [address] Basophils/100 WBC (Bld) 0.4 % Normal 0.0-2.0 S [facility] Comment on above: Performed By: #### H EMDF, PT, BMP3M, PHOS3, MG3, CK3 #### [address] #### VD25H #### [facility] [address] [place] [address] Eosinophils #/vol (Bld) 0.2 10*3/uL Normal 0.0-0.5 [facility] Comment on above: Performed By: #### H EMDF, PT, BMP3M, PHOS3, MG3, CK3 #### [facility] [address] [place], [place] #### VD25H #### [facility] [address] [place] [address] Eosinophils/100 WBC (Bld) 2.1 % Normal 1.0-6.0 [facility] Comment on above: Performed By: #### H EMDF, PT, BMP3M, PHOS3, MG3, CK3 #### [address] #### VD25H #### [facility] [address] [place] [address] Erythrocyte distribution width Ratio (RBC) 13.4 % Normal 11.5-14.5 [facility] Comment on above: Performed By: #### H EMDF, PT, BMP3M, PHOS3, MG3, CK3 #### [address] #### VD25H #### [facility] [address] [place] [address] Granulocytes/100 WBC (Bld) 80.0 % Normal 40.0-80.0 [facility] Comment on above: Performed By: #### H EMDF, PT, BMP3M, PHOS3, MG3, CK3 #### [address] #### VD25H #### [facility] [address] [place] [address] Hematocrit Volume Fraction (Bld) 37.3 % Low 40.0-52.0 [facility] Comment on above: Performed By: #### H EMDF, PT, BMP3M, PHOS3, MG3, CK3 #### [address] #### VD25H #### [facility] [address] [place] [address] Hemoglobin mass conc (Bld) 12.6 g/dL Low 13.0-18.0 [facility] Comment on above: Performed By: #### H EMDF, PT, BMP3M, PHOS3, MG3, CK3 #### [address] [place] [place], [place] #### VD25H #### [facility] [address] [place] [address] Lymphocytes #/vol (Bld) 1.1 10*3/uL Normal 1.0-4.3 [facility] Comment on above: Performed By: #### H EMDF, PT, BMP3M, PHOS3, MG3, CK3 #### [address] [place] [place], [place] #### VD25H #### [facility] [address] [place] [address] Lymphocytes/100 WBC (Bld) 10.3 % Low 20.0-40.0 [facility] Comment on above: Performed By: #### H EMDF, PT, BMP3M, PHOS3, MG3, CK3 #### [address] [place] [place] #### VD25H #### [facility] [address] [place] [address] MCH Entitic mass (RBC) 29.4 pg Normal 26.0-34.0 [facility] Comment on above: Performed By: #### H EMDF, PT, BMP3M, PHOS3, MG3, CK3 #### [address] [place] [place], [place] #### VD25H #### [facility] [address] [place] [address] MCHC mass conc (RBC) 33.9 % Normal 32.0-36.0 [facility] Comment on above: Performed By: #### H EMDF, PT, BMP3M, PHOS3, MG3, CK3 #### [address] [place], [place] #### VD25H #### [facility] [address] [place] [address] MCV Entitic volume (RBC) 86.8 fL Normal 80.0-98.0 [facility] Comment on above: Performed By: #### H EMDF, PT, BMP3M, PHOS3, MG3, CK3 #### [address] [place] #### VD25H #### [facility] [address] [place] [address] Monocytes #/vol (Bld) 0.8 10*3/uL Normal 0.0-0.8 [facility] Comment on above: Performed By: #### H EMDF, PT, BMP3M, PHOS3, MG3, CK3 #### [address] #### VD25H #### [facility] [address] [place] [address] Monocytes/100 WBC (Bld) 7.2 % Normal 2.0-10.0 [facility] Comment on above: Performed By: #### H EMDF, PT, BMP3M, PHOS3, MG3, CK3 #### [address] #### VD25H #### [facility] [address] [place] [address] Platelet mean volume Entitic volume (Bld) 7.8 fL Normal 7.4-10.4 [facility] Comment on above: Performed By: #### H EMDF, PT, BMP3M, PHOS3, MG3, CK3 #### [address] [place], [place] #### VD25H #### [facility] [address] [place] [address] Platelets #/vol (Bld) 301 10*3/uL Normal 140-440 [facility] Comment on above: Performed By: #### H EMDF, PT, BMP3M, PHOS3, MG3, CK3 #### [address] #### VD25H #### [facility] [address] [place] [address] RBC #/vol (Bld) 4.29 10*6/uL Low 4.40-5.90 [facility] Comment on above: Performed By: #### H EMDF, PT, BMP3M, PHOS3, MG3, CK3 #### [address] #### VD25H #### [facility] [address] [place] [address] WBC #/vol (Bld) 10.8 10*3/uL High 3.6-10.[address] [facility] Comment on above: Performed By: #### H EMDF, PT, BMP3M, PHOS3, MG3, CK3 #### [address] #### VD25H #### [place] [address] [place] [address] Arterial Blood Gaseson 07-17 CO2 molar conc 29.7 mmol/L High 23.0-27.0 [facility] Comment on above: Performed By: #### H EMDF, PT, BMP3M, PHOS3, MG3, CK3 #### [address] #### VD25H #### [facility] [address] [place] [address] HCO3 molar conc (Bld) 28.4 mmol/L High 21.0-25.0 [facility] Comment on above: Performed By: #### H EMDF, PT, BMP3M, PHOS3, MG3, CK3 #### [address] #### VD25H #### [facility] [address] [place] [address] Hemoglobin mass conc (Bld) 11.1 g/dL Normal ScreenOnly [facility] Comment on above: Performed By: #### H EMDF, PT, BMP3M, PHOS3, MG3, CK3 #### [address] #### VD25H #### [facility] [address] [place] [address] Oxygen ppres (Bld) 109.2 mm[Hg] High 80.0-100.0 [facility] Comment on above: Performed By: #### H EMDF, PT, BMP3M, PHOS3, MG3, CK3 #### [place] [place], [place] #### VD25H #### [facility] [address] [place] [address] Oxygen saturation in Blood 97.8 % Normal 95.0-100.0 [facility] Comment on above: Performed By: #### H EMDF, PT, BMP3M, PHOS3, MG3, CK3 #### [address] #### VD25H #### [facility] [address] [place] [address] pCO2 39.8 mm[Hg] Normal 35.0-45.0 [facility] Comment on above: Performed By: #### H EMDF, PT, BMP3M, PHOS3, MG3, CK3 #### [address] [address] [address] [facility], [place] #### VD25H #### [facility] [address] [place] [address] pH (Bld) 7.472 High 7.350-7.450 [facility] Comment on above: Performed By: #### H EMDF, PT, BMP3M, PHOS3, MG3, CK3 #### [place] [address] [address] [facility], [place] #### VD25H #### [facility] [address] [place] [address] Std Base Excess 4.5 mmol/L High -3.0-3.0 [facility] Comment on above: Performed By: #### H EMDF, PT, BMP3M, PHOS3, MG3, CK3 #### [address] [place] [address] [address] [place], [place] #### VD25H #### [facility] [address] [place] [address] FIO2 60% Normal [facility] Comment on above: Performed By: #### H EMDF, PT, BMP3M, PHOS3, MG3, CK3 #### [facility] [address] [facility], [place] #### VD25H #### [facility] [address] [place] [address] Basic Metabolic Panelon - Anion gap molar conc 6 Normal [facility] Comment on above: Performed By: #### H EMDF, PT, BMP3M, PHOS3, MG3, CK3 #### [place] [address] [address] [facility], [place] #### VD25H #### [facility] [address] [place] [address] Calcium mass conc 8.0 mg/dL Low 8.4-10.4 [facility] Comment on above: Performed By: #### H EMDF, PT, BMP3M, PHOS3, MG3, CK3 #### [place] [address] [address] [facility], [place] #### VD25H #### [facility] [address] [place] [address] CO2 molar conc 31 mmol/L High 22-30 [facility] Comment on above: Performed By: #### H EMDF, PT, BMP3M, PHOS3, MG3, CK3 #### [facility] [address] [facility], [place] #### VD25H #### [facility] [address] [place] [address] Glucose mass conc 107 mg/dL High 70-[address] [facility] Comment on above: Performed By: #### H EMDF, PT, BMP3M, PHOS3, MG3, CK3 #### [facility] [address] [facility], [place] #### VD25H #### [facility] [address] [place] [address] Urea nitrogen mass conc 22 mg/dL High 7-20 [facility] Comment on above: Performed By: #### H EMDF, PT, BMP3M, PHOS3, MG3, CK3 #### [facility] [address] [place] [address] #### VD25H #### [facility] [address] [place] [address] Creatinine mass conc 0.66 mg/dL Normal 0.52-1.25 [facility] Comment on above: Performed By: #### H EMDF, PT, BMP3M, PHOS3, MG3, CK3 #### [address] #### VD25H #### [facility] [address] [place] [address] GFR/1.73 sq M predicted among blacks MDRD vol rate/area (S/P/Bld) mL/min/{1.73_m2} Normal >60 [facility] Comment on above: Performed By: #### H EMDF, PT, BMP3M, PHOS3, MG3, CK3 #### [address] #### VD25H #### [facility] [address] [place] [address] GFR/1.73 sq M predicted among non-blacks MDRD vol rate/area (S/P/Bld) mL/min/{1.73_m2} Normal >[address] [facility] Comment on above: Result Comment: Sour ce- MDRD equation with creatinine calibration to IDMS(NKDEP) eGFR not recommended for drug dose adjustment Performed By: #### H EMDF, PT, BMP3M, PHOS3, MG3, CK3 #### [facility] [address] [place], [place] #### VD25H #### [facility] [address] [place] [address] Chloride molar conc 105 mmol/L Normal 98-107 [facility] Comment on above: Performed By: #### H EMDF, PT, BMP3M, PHOS3, MG3, CK3 #### [facility] [address] [place] [address] #### VD25H #### [facility] [address] [place] [address] Potassium molar conc 3.9 mmol/L Normal 3.5-5.1 [facility] Comment on above: Performed By: #### H EMDF, PT, BMP3M, PHOS3, MG3, CK3 #### [facility] [address] [place] [address] #### VD25H #### [facility] [address] [place] [address] Sodium molar conc 142 mmol/L Normal 135-[address] [facility] Comment on above: Performed By: #### H EMDF, PT, BMP3M, PHOS3, MG3, CK3 #### [facility] [address] [place] [address] #### VD25H #### [facility] [address] [place] [address] CR Abdomen APon 07-17-2018 CR Abdomen AP Patient Name: KATHYA HOOPER Diagnostic Radiology Exam Date/Time 07/17/2018 12:46:31 EDT Exam CR Abdomen AP Ordering Physician [id number] THAKKAR Accession Number [id number] CPT4 Codes 46304 () Reason For Exam ileus Report Abdomen: 07/17/2018. Clinical Information: Ileus. Findings: A single supine view of the abdomen was compared to the earlier study same date. There is less gastric distention than the earlier study. There continues to be dilated loops of both large and small bowel similar to the earlier study suggesting an ileus. Report Dictated on Final Dictated: 07/17/2018 12:46 pm Dictating Physician: MD JOHNSON RISA Signed Date and Time: 07/17/2018 12:46 pm Signed by: MD JOHNSON RISA Transcribed Date and Time: 07/17/2018 12:46 Normal [facility] CR Abdomen AP Patient Name: KATHYA HOOPER Diagnostic Radiology Exam Date/Time 07/17/2018 06:25:43 EDT Exam CR Abdomen AP Ordering Physician [id number] OR[place]O JOYA Accession Number [id number] CPT4 Codes 66606 () Reason For Exam ileus Report Abdomen: 07/17/2018. Clinical Information: Distention. Findings: A single supine view of the abdomen reveals a feeding tube in the region of the stomach. There is moderate distention of small bowel and stomach with some limited colonic gas. The findings are most likely consistent with an ileus. Note is made that the entire abdomen is not included on the examination. Report Dictated on Final Dictated: 07/17/2018 7:16 am Dictating Physician: MD JOHNSON RISA Signed Date and Time: 07/17/2018 7:17 am Signed by: MD JOHNSON RISA Transcribed Date and Time: 07/17/2018 7:16 Normal [facility] CR Chest Portableon 07-18-19 19 CR Chest Portable Patient Name: KATHYA HOOPER Diagnostic Radiology Exam Date/Time 07/17/2018 18:08:41 EDT Exam CR Chest Portable Ordering Physician SALO DAVIS Accession Number [id number] CPT4 Codes 54843 () Reason For Exam picc Report CHEST PORTABLE: Indication: Line positioning Views: Portable frontal Comparison: 07/16/2018 at 5:49 Time: 07/17/2018 at 17:47 FINDINGS AND IMPRESSION: Interval placement of a left PICC line with tip projecting superiorly in the region of the left internal jugular central venous catheter. A follow-up portable chest demonstrated repositioning of this PICC line with tip subsequently placed over the superior vena cava. A right subclavian central venous catheter is present with tip projecting in the region of the superior vena cava. A tracheostomy tube projects over the midline. Cardiac monitoring wires and leads are present. The trachea is midline. The cardiomediastinal silhouette is mildly enlarged. The lung volumes are low with bilateral lower lung opacities, left greater than right, with a small left pleural effusion. Report Dictated on Final Dictated: 07/17/2018 7:24 pm Dictating Physician: MD CHARLES JENNIFER R Signed Date and Time: 07/17/2018 7:27 pm Signed by: MD CHARLES JENNIFER R Transcribed Date and Time: 07/17/2018 7:24 Normal [facility] CR Chest Portable Patient Name: KATHYA HOOPER Diagnostic Radiology Exam Date/Time 07/17/2018 18:08:41 EDT Exam CR Chest Portable Ordering Physician SALO DAVIS Accession Number [id number] CPT4 Codes 51587 () Reason For Exam reheck line tip Report CHEST PORTABLE: Indication: Line repositioned Views: Portable frontal Comparison: 07/17/2018 at 17:47 Time: 07/17/2018 at 17:51 FINDINGS: Interval repositioning of a left PICC line with tip now overlying the superior vena cava. Right subclavian central venous catheter is present with tip in the region of the superior vena cava. A tracheostomy is noted at the midline. Surgical skin jdaa overlie the right lower neck. Cervical spine fusion hardware is present. Cardiac monitoring wires and leads are present, limiting overall evaluation. The trachea is midline. The cardiomediastinal silhouette is mildly enlarged. The lung volumes are low. Bilateral lower lung opacities are present, left greater than right. There is blunting of the left costophrenic angle. IMPRESSION: 1. Support lines and tubes as above. 2. Bilateral lower lung infiltrates, left greater than right, with layering left pleural effusion. Report Dictated on Final Dictated: 07/17/2018 7:21 pm Dictating Physician: MD CHARLES JENNIFER R Signed Date and Time: 07/17/2018 7:24 pm Signed by: MD CHARLES JENNIFER R Transcribed Date and Time: 07/17/2018 7:21 [facility] CR Chest Portable Patient Name: KATHYA HOOPER Diagnostic Radiology Exam Date/Time 07/17/2018 06:26:06 EDT Exam CR Chest Portable Ordering Physician MARIA EUGENIA PEREZ Accession Number [id number] CPT4 Codes 98442 () Reason For Exam ETT placement Report Portable chest 07/17/2018: Clinical Information: Respiratory failure. Findings: A single AP portable view of the chest was obtained at 549 hours. Comparison was made to the prior study prior day. The various lines and tubes are unchanged. There continues to be haziness in both lung bases suggesting layering of bilateral pleural effusions. There is increased density behind the heart on the left consistent with left lower lobe atelectasis, effusion or infiltrate. Report Dictated on Final Dictated: 07/17/2018 7:17 am Dictating Physician: MD JOHNSON RISA Signed Date and Time: 07/17/2018 7:19 am Signed by: MD JOHNSON RISA Transcribed Date and Time: 07/17/2018 7:17 Normal [facility] Hemogram w/ Autodiffon 07-17 Abs Baso Cnt 0.0 10*3/uL Normal 0.0-0.2 [facility] Comment on above: Performed By: #### H EMDF, PT, BMP3M, PHOS3, MG3, CK3 #### [facility] [address] [place], [place] #### VD25H #### [facility] [address] [place] [address] Abs Neutrophile Cnt 8.1 10*3/uL High 1.8-7.0 [facility] Comment on above: Performed By: #### H EMDF, PT, BMP3M, PHOS3, MG3, CK3 #### [facility] [address] [place], [place] #### VD25H #### [facility] [address] [place] [address] Basophils/100 WBC (Bld) 0.4 % Normal 0.0-2.0 S [facility] Comment on above: Performed By: #### H EMDF, PT, BMP3M, PHOS3, MG3, CK3 #### [facility] [address] [place], [place] #### VD25H #### [facility] [address] [place] [address] Eosinophils #/vol (Bld) 0.1 10*3/uL Normal 0.0-0.5 [facility] Comment on above: Performed By: #### H EMDF, PT, BMP3M, PHOS3, MG3, CK3 #### [address] [place], [place] #### VD25H #### [facility] [address] [place] [address] Eosinophils/100 WBC (Bld) 1.4 % Normal 1.0-6.0 [facility] Comment on above: Performed By: #### H EMDF, PT, BMP3M, PHOS3, MG3, CK3 #### [address] #### VD25H #### [facility] [address] [place] [address] Erythrocyte distribution width Ratio (RBC) 13.5 % Normal 11.5-14.5 [facility] Comment on above: Performed By: #### H EMDF, PT, BMP3M, PHOS3, MG3, CK3 #### [address] #### VD25H #### [facility] [address] [place] [address] Granulocytes/100 WBC (Bld) 78.6 % Normal 40.0-80.0 [facility] Comment on above: Performed By: #### H EMDF, PT, BMP3M, PHOS3, MG3, CK3 #### [address] #### VD25H #### [facility] [address] [place] [address] Hematocrit Volume Fraction (Bld) 31.3 % Low 40.0-52.0 [facility] Comment on above: Performed By: #### H EMDF, PT, BMP3M, PHOS3, MG3, CK3 #### [address] [place], [place] #### VD25H #### [facility] [address] [place] [address] Hemoglobin mass conc (Bld) 10.4 g/dL Low 13.0-18.0 [facility] Comment on above: Performed By: #### H EMDF, PT, BMP3M, PHOS3, MG3, CK3 #### [address] [address] [address] [place], [place] #### VD25H #### [facility] [address] [place] [address] Lymphocytes #/vol (Bld) 1.0 10*3/uL Normal 1.0-4.3 [facility] Comment on above: Performed By: #### H EMDF, PT, BMP3M, PHOS3, MG3, CK3 #### [address] #### VD25H #### [facility] [address] [place] [address] Lymphocytes/100 WBC (Bld) 10.0 % Low 20.0-40.0 [facility] Comment on above: Performed By: #### H EMDF, PT, BMP3M, PHOS3, MG3, CK3 #### [address] #### VD25H #### [facility] [address] [place] [address] MCH Entitic mass (RBC) 29.3 pg Normal 26.0-34.0 [facility] Comment on above: Performed By: #### H EMDF, PT, BMP3M, PHOS3, MG3, CK3 #### [address] #### VD25H #### [facility] [address] [place] [address] MCHC mass conc (RBC) 33.3 % Normal 32.0-36.0 [facility] Comment on above: Performed By: #### H EMDF, PT, BMP3M, PHOS3, MG3, CK3 #### [facility] [address] [place], [place] #### VD25H #### [facility] [address] [place] [address] MCV Entitic volume (RBC) 87.9 fL Normal 80.0-98.0 [facility] Comment on above: Performed By: #### H EMDF, PT, BMP3M, PHOS3, MG3, CK3 #### [address] #### VD25H #### [facility] [address] [place] [address] Monocytes #/vol (Bld) 1.0 10*3/uL High 0.0-0.8 [facility] Comment on above: Performed By: #### H EMDF, PT, BMP3M, PHOS3, MG3, CK3 #### [address] #### VD25H #### [facility] [address] [place] [address] Monocytes/100 WBC (Bld) 9.6 % Normal 2.0-10.0 [facility] Comment on above: Performed By: #### H EMDF, PT, BMP3M, PHOS3, MG3, CK3 #### [address] #### VD25H #### [facility] [address] [place] [address] Platelet mean volume Entitic volume (Bld) 7.6 fL Normal 7.4-10.4 [facility] Comment on above: Performed By: #### H EMDF, PT, BMP3M, PHOS3, MG3, CK3 #### [address] #### VD25H #### [facility] [address] [place] [address] Platelets #/vol (Bld) 307 10*3/uL Normal 140-440 [facility] Comment on above: Performed By: #### H EMDF, PT, BMP3M, PHOS3, MG3, CK3 #### [facility] [address] [place], [place] #### VD25H #### [facility] [address] [place] [address] RBC #/vol (Bld) 3.56 10*6/uL Low 4.40-5.[address] [facility] Comment on above: Performed By: #### H EMDF, PT, BMP3M, PHOS3, MG3, CK3 #### [address] #### VD25H #### [place] [address] [place] [address] WBC #/vol (Bld) 10.2 10*3/uL Normal 3.6-10.7 [facility] Comment on above: Performed By: #### H EMDF, PT, BMP3M, PHOS3, MG3, CK3 #### [address] #### VD25H #### [facility] [address] [place] [address] Basic Metabolic Panelon 06-29 Calcium mass conc 8.1 mg/dL Low 8.4-10.[address] [facility] Comment on above: Performed By: #### H EMDF, PT, BMP3M, PHOS3, MG3, CK3 #### [address] #### VD25H #### [facility] [address] [place] [address] Anion gap molar conc 5 Normal [facility] Comment on above: Performed By: #### H EMDF, PT, BMP3M, PHOS3, MG3, CK3 #### [address] #### VD25H #### [facility] [address] [place] [address] CO2 molar conc 32 mmol/L High 22-30 [facility] Comment on above: Performed By: #### H EMDF, PT, BMP3M, PHOS3, MG3, CK3 #### [facility] [address] [place] [address] #### VD25H #### [facility] [address] [place] [address] Creatinine mass conc 0.62 mg/dL Normal 0.52-1.25 [facility] Comment on above: Performed By: #### H EMDF, PT, BMP3M, PHOS3, MG3, CK3 #### [address] #### VD25H #### [facility] [address] [place] [address] GFR/1.73 sq M predicted among blacks MDRD vol rate/area (S/P/Bld) mL/min/{1.73_m2} Normal >60 [facility] Comment on above: Performed By: #### H EMDF, PT, BMP3M, PHOS3, MG3, CK3 #### [address] #### VD25H #### [facility] [address] [place] [address] GFR/1.73 sq M predicted among non-blacks MDRD vol rate/area (S/P/Bld) mL/min/{1.73_m2} Normal >60 [facility] Comment on above: Result Comment: Sour ce- MDRD equation with creatinine calibration to IDMS(NKDEP) eGFR not recommended for drug dose adjustment Performed By: #### H EMDF, PT, BMP3M, PHOS3, MG3, CK3 #### [address] #### VD25H #### [facility] [address] [place] [address] Glucose mass conc 103 mg/dL High 70-[address] [facility] Comment on above: Performed By: #### H EMDF, PT, BMP3M, PHOS3, MG3, CK3 #### [address] [address] [place], [place] #### VD25H #### [facility] [address] [place] [address] Urea nitrogen mass conc 20 mg/dL Normal 7-20 S [facility] Comment on above: Performed By: #### H EMDF, PT, BMP3M, PHOS3, MG3, CK3 #### [address] [place], [place] #### VD25H #### [facility] [address] [place] [address] Chloride molar conc 107 mmol/L Normal 98-107 [facility] Comment on above: Performed By: #### H EMDF, PT, BMP3M, PHOS3, MG3, CK3 #### [address] [address] [place] #### VD25H #### [facility] [address] [place] [address] Potassium molar conc 3.7 mmol/L Normal 3.5-5.1 [facility] Comment on above: Performed By: #### H EMDF, PT, BMP3M, PHOS3, MG3, CK3 #### [address] [place], [place] #### VD25H #### [facility] [address] [place] [address] Sodium molar conc 145 mmol/L Normal 135-[address] [facility] Comment on above: Performed By: #### H EMDF, PT, BMP3M, PHOS3, MG3, CK3 #### [address] [place], [place] #### VD25H #### [facility] [address] [place] [address] CR Abdomen APon 07-16-2018 CR Abdomen AP Patient Name: KATHYA HOOPER Diagnostic Radiology Exam Date/Time 07/16/2018 08:00:58 EDT Exam CR Abdomen AP Ordering Physician [id number] -JOYA OCAMPO Accession Number [id number] CPT4 Codes 53886 () Reason For Exam ileus Report KUB History: Abdominal distention, ileus COMPARISON: 07/15/2018 Findings: Two AP spine abdominal views show mild gaseous distention of multiple small bowel loops, decreased compared to last exam. There is smaller amount of gas an stools in the colon. The appearance suggest partial small bowel obstruction versus less likely ileus. Tip of tube project at the left mid abdomen. Routine evaluation of any possible free air requires upright or decubitus views that are not concurrently available. Catheter project at the symphysis pubis. There is spondylosis. IMPRESSION: Limited exam. Gaseous bowel distention suggest partial small bowel obstruction versus less likely ileus but requires continued evaluation. Report Dictated on Final Dictated: 07/16/2018 10:03 am Dictating Physician: MD CANCINO AHMAD Signed Date and Time: 07/16/2018 10:10 am Signed by: MD CANCINO AHMAD Transcribed Date and Time: 07/16/2018 10:03 Normal [facility] CR Chest Portableon 07-17-19 CR Chest Portable Patient Name: KATHYA HOOPER Diagnostic Radiology Exam Date/Time 07/16/2018 06:19:28 EDT Exam CR Chest Portable Ordering Physician MARIA EUGENIA PEREZ Accession Number [id number] CPT4 Codes 70801 () Reason For Exam ETT placement Report CHEST (Frontal View) History: Respiratory abnormality Comparison: 07/15/2018 Findings: Frontal portable chest view redemonstrates left and smaller right basilar atelectasis/infiltrat e with small left pleural effusion, not significantly changed from the prior exam. The lungs are mildly congested. The heart is borderline in size. Tracheostomy tube and right central catheter are similar to last exam. There is partially visualized surgical hardware and jada overlying the lower cervical spine. There is no mediastinal widening or other significant interval change. Report Dictated on Final Dictated: 07/16/2018 10:10 am Dictating Physician: MD CANCINO AHMAD Signed Date and Time: 07/16/2018 10:13 am Signed by: MD CANCINO AHMAD Transcribed Date and Time: 07/16/2018 10:10 Normal [facility] Hemogram w/ Autodiffon 07-16 Abs Baso Cnt 0.0 10*3/uL Normal 0.0-0.2 [facility] Comment on above: Performed By: #### H EMDF, PT, BMP3M, PHOS3, MG3, CK3 #### [facility] [address] [place], [place] #### VD25H #### [facility] [address] [place] [address] Abs Neutrophile Cnt 8.7 10*3/uL High 1.8-7.0 [facility] Comment on above: Performed By: #### H EMDF, PT, BMP3M, PHOS3, MG3, CK3 #### [facility] [address] [place], [place] #### VD25H #### [facility] [address] [place] [address] Basophils/100 WBC (Bld) 0.2 % Normal 0.0-2.0 S [facility] Comment on above: Performed By: #### H EMDF, PT, BMP3M, PHOS3, MG3, CK3 #### [address] #### VD25H #### [facility] [address] [place] [address] Eosinophils #/vol (Bld) 0.1 10*3/uL Normal 0.0-0.5 [facility] Comment on above: Performed By: #### H EMDF, PT, BMP3M, PHOS3, MG3, CK3 #### [address] #### VD25H #### [facility] [address] [place] [address] Eosinophils/100 WBC (Bld) 0.7 % Low 1.0-6.0 [facility] Comment on above: Performed By: #### H EMDF, PT, BMP3M, PHOS3, MG3, CK3 #### [facility] [address] [place], [place] #### VD25H #### [facility] [address] [place] [address] Erythrocyte distribution width Ratio (RBC) 13.7 % Normal 11.5-14.5 [facility] Comment on above: Performed By: #### H EMDF, PT, BMP3M, PHOS3, MG3, CK3 #### [address] #### VD25H #### [facility] [address] [place] [address] Granulocytes/100 WBC (Bld) 83.0 % High 40.0-80.0 [facility] Comment on above: Performed By: #### H EMDF, PT, BMP3M, PHOS3, MG3, CK3 #### [address] #### VD25H #### [facility] [address] [place] [address] Hematocrit Volume Fraction (Bld) 30.3 % Low 40.0-52.0 [facility] Comment on above: Performed By: #### H EMDF, PT, BMP3M, PHOS3, MG3, CK3 #### [address] #### VD25H #### [facility] [address] [place] [address] Hemoglobin mass conc (Bld) 10.5 g/dL Low 13.0-18.0 [facility] Comment on above: Performed By: #### H EMDF, PT, BMP3M, PHOS3, MG3, CK3 #### [address] #### VD25H #### [facility] [address] [place] [address] Lymphocytes #/vol (Bld) 0.7 10*3/uL Low 1.0-4.3 [facility] Comment on above: Performed By: #### H EMDF, PT, BMP3M, PHOS3, MG3, CK3 #### [address] #### VD25H #### [facility] [address] [place] [address] Lymphocytes/100 WBC (Bld) 6.7 % Low 20.0-40.0 [facility] Comment on above: Performed By: #### H EMDF, PT, BMP3M, PHOS3, MG3, CK3 #### [address] #### VD25H #### [facility] [address] [place] [address] MCH Entitic mass (RBC) 30.2 pg Normal 26.0-34.0 [facility] Comment on above: Performed By: #### H EMDF, PT, BMP3M, PHOS3, MG3, CK3 #### [address] #### VD25H #### [facility] [address] [place] [address] MCHC mass conc (RBC) 34.6 % Normal 32.0-36.0 [facility] Comment on above: Performed By: #### H EMDF, PT, BMP3M, PHOS3, MG3, CK3 #### [address] #### VD25H #### [facility] [address] [place] [address] MCV Entitic volume (RBC) 87.3 fL Normal 80.0-98.0 [facility] Comment on above: Performed By: #### H EMDF, PT, BMP3M, PHOS3, MG3, CK3 #### [address] #### VD25H #### [facility] [address] [place] [address] Monocytes #/vol (Bld) 1.0 10*3/uL High 0.0-0.8 [facility] Comment on above: Performed By: #### H EMDF, PT, BMP3M, PHOS3, MG3, CK3 #### [address] [place] [place], [place] #### VD25H #### [facility] [address] [place] [address] Monocytes/100 WBC (Bld) 9.4 % Normal 2.0-10.0 [facility] Comment on above: Performed By: #### H EMDF, PT, BMP3M, PHOS3, MG3, CK3 #### [address] [place], [place] #### VD25H #### [place] [address] [place] [address] Platelet mean volume Entitic volume (Bld) 6.9 fL Low 7.4-10.4 [facility] Comment on above: Performed By: #### H EMDF, PT, BMP3M, PHOS3, MG3, CK3 #### [address] #### VD25H #### [facility] [address] [place] [address] Platelets #/vol (Bld) 254 10*3/uL Normal 140-440 [facility] Comment on above: Performed By: #### H EMDF, PT, BMP3M, PHOS3, MG3, CK3 #### [address] #### VD25H #### [facility] [address] [place] [address] RBC #/vol (Bld) 3.47 10*6/uL Low 4.40-5.[address] [facility] Comment on above: Performed By: #### H EMDF, PT, BMP3M, PHOS3, MG3, CK3 #### [address] #### VD25H #### [facility] [address] [place] [address] WBC #/vol (Bld) 10.5 10*3/uL Normal 3.6-10.7 [facility] Comment on above: Performed By: #### H EMDF, PT, BMP3M, PHOS3, MG3, CK3 #### [address] [place], [place] #### VD25H #### [facility] [address] [place] [address] Arterial Blood Gaseson 07-15 CO2 molar conc 26.7 mmol/L Normal 23.0-27.0 [facility] Comment on above: Performed By: #### H EMDF, PT, BMP3M, PHOS3, MG3, CK3 #### [address] [place], [place] #### VD25H #### [place] [address] [place] [address] FIO2 50% Normal [facility] Comment on above: Performed By: #### H EMDF, PT, BMP3M, PHOS3, MG3, CK3 #### [address] [place], [place] #### VD25H #### [place] [address] [place] [address] HCO3 molar conc (Bld) 25.7 mmol/L High 21.0-25.0 [facility] Comment on above: Performed By: #### H EMDF, PT, BMP3M, PHOS3, MG3, CK3 #### [address] #### VD25H #### [place] [address] [place] [address] Hemoglobin mass conc (Bld) 12.5 g/dL Normal [facility] Comment on above: Performed By: #### H EMDF, PT, BMP3M, PHOS3, MG3, CK3 #### [address] [place], [place] #### VD25H #### [facility] [address] [place] [address] Oxygen ppres (Bld) 90.4 mm[Hg] Normal 80.0-100.0 [facility] Comment on above: Performed By: #### H EMDF, PT, BMP3M, PHOS3, MG3, CK3 #### [facility] [address] [place], [place] #### VD25H #### [facility] [address] [place] [address] Oxygen saturation in Blood 96.8 % Normal 95.0-100.0 [facility] Comment on above: Performed By: #### H EMDF, PT, BMP3M, PHOS3, MG3, CK3 #### [address] #### VD25H #### [place] [address] [place] [address] pCO2 33.4 mm[Hg] Low 35.0-45.0 [facility] Comment on above: Performed By: #### H EMDF, PT, BMP3M, PHOS3, MG3, CK3 #### [address] [address] [address] [facility], [place] #### VD25H #### [facility] [address] [place] [address] pH (Bld) 7.504 High 7.350-7.450 [facility] Comment on above: Performed By: #### H EMDF, PT, BMP3M, PHOS3, MG3, CK3 #### [address] [place], [place] #### VD25H #### [facility] [address] [place] [address] Std Base Excess 2.9 mmol/L Normal -3.0-3.0 [facility] Comment on above: Performed By: #### H EMDF, PT, BMP3M, PHOS3, MG3, CK3 #### [place] [address] [address] [facility], [place] #### VD25H #### [facility] [address] [place] [address] Basic Metabolic Panelon 06-29 Anion gap molar conc 8 Normal [facility] Comment on above: Performed By: #### H EMDF, PT, BMP3M, PHOS3, MG3, CK3 #### [place] [address] [address] [facility], [place] #### VD25H #### [facility] [address] [place] [address] Calcium mass conc 8.6 mg/dL Normal 8.4-10.4 [facility] Comment on above: Performed By: #### H EMDF, PT, BMP3M, PHOS3, MG3, CK3 #### [address], [place] #### VD25H #### [facility] [address] [place] [address] CO2 molar conc 29 mmol/L Normal 22-30 [facility] Comment on above: Performed By: #### H EMDF, PT, BMP3M, PHOS3, MG3, CK3 #### [place] [address] [address] [facility], [place] #### VD25H #### [facility] [address] [place] [address] Glucose mass conc 119 mg/dL High 70-100 [facility] Comment on above: Performed By: #### H EMDF, PT, BMP3M, PHOS3, MG3, CK3 #### [place] [address] [address] [facility], [place] #### VD25H #### [facility] [address] [place] [address] Urea nitrogen mass conc 23 mg/dL High 7-20 S [facility] Comment on above: Performed By: #### H EMDF, PT, BMP3M, PHOS3, MG3, CK3 #### [address] [place] [address] [address] [facility], [place] #### VD25H #### [facility] [address] [place] [address] Creatinine mass conc 0.73 mg/dL Normal 0.52-1.25 [facility] Comment on above: Performed By: #### H EMDF, PT, BMP3M, PHOS3, MG3, CK3 #### [address] #### VD25H #### [facility] [address] [place] [address] GFR/1.73 sq M predicted among blacks MDRD vol rate/area (S/P/Bld) mL/min/{1.73_m2} Normal >60 [facility] Comment on above: Performed By: #### H EMDF, PT, BMP3M, PHOS3, MG3, CK3 #### [address] #### VD25H #### [place] [address] [place] [address] GFR/1.73 sq M predicted among non-blacks MDRD vol rate/area (S/P/Bld) mL/min/{1.73_m2} Normal >60 [facility] Comment on above: Result Comment: Sour ce- MDRD equation with creatinine calibration to IDMS(NKDEP) eGFR not recommended for drug dose adjustment Performed By: #### H EMDF, PT, BMP3M, PHOS3, MG3, CK3 #### [address] #### VD25H #### [facility] [address] [place] [address] Potassium molar conc 4.1 mmol/L Normal 3.5-5.1 [facility] Comment on above: Performed By: #### H EMDF, PT, BMP3M, PHOS3, MG3, CK3 #### [address] #### VD25H #### [facility] [address] [place] [address] Sodium molar conc 144 mmol/L Normal 135-[address] [facility] Comment on above: Performed By: #### H EMDF, PT, BMP3M, PHOS3, MG3, CK3 #### [facility] [address] [place] [address] #### VD25H #### [facility] [address] [place] [address] Chloride molar conc 107 mmol/L Normal 98-107 [facility] Comment on above: Performed By: #### H EMDF, PT, BMP3M, PHOS3, MG3, CK3 #### [facility] [address] [place] [address] #### VD25H #### [facility] [address] [place] [address] CR Abdomen APon 07-15-2018 CR Abdomen AP Patient Name: KATHYA HOOPER Diagnostic Radiology Exam Date/Time 07/15/2018 09:25:44 EDT Exam CR Abdomen AP Ordering Physician [id number] JOYA PERRY Accession Number [id number] CPT4 Codes 84427 () Reason For Exam ileus Report EXAMINATION: Abdomen: AP view. COMPARISON: 07/14/2018. REASON FOR STUDY: Ileus. FINDINGS: Small bowel loops are diffusely dilated. The colon is decompressed. A gastrostomy tube is projected over the gastric fundus. CONCLUSIONS: Probable distal small bowel obstruction. Further investigation with CT scan may be useful. Report Dictated on Final Dictated: 07/15/2018 10:07 am Dictating Physician: MD PIZANO B NELSON Signed Date and Time: 07/15/2018 10:10 am Signed by: MD PIZANO B NELSON Transcribed Date and Time: 07/15/2018 10:07 Normal [facility] CR Chest Portableon 07-16-19 19 CR Chest Portable Patient Name: KATHYA HOOPER Diagnostic Radiology Exam Date/Time 07/15/2018 06:00:00 EDT Exam CR Chest Portable Ordering Physician CHRIS MARIA EUGENIA Accession Number [id number] CPT4 Codes 25090 () Reason For Exam ETT placement Report Examination: AP portable chest Clinical Indication: ETT placement Comparison: 07/14/2018 Findings: Tracheostomy tube terminates at the level the clavicles overlying the trachea. Right-sided subclavian central line catheter tip terminates at the mid SVC unchanged. Diminished lung volumes with central vascular crowding and basilar subsegmental atelectasis. Small pleural effusions unchanged. Improved interstitial disease, pulmonary edema. Heart size at the upper limits of normal. Postsurgical changes lower cervical spine with posterior fusion hardware and cutaneous jada. Impression: 1. Diminished lung volumes with central vascular crowding and basilar atelectasis. Improved pulmonary edema/CHF. Small pleural effusions unchanged. Report Dictated on Final Dictated: 07/15/2018 9:14 am Dictating Physician: MD SIMPSON ANTHONY J Signed Date and Time: 07/15/2018 9:16 am Signed by: MD SIMPSON ANTHONY J Transcribed Date and Time: 07/15/2018 9:14 Normal [facility] CULT./ST. RESPIRATORYon 06-29 CULT./ST. RESPIRATORY CULT./ST. RESPIRAT ORY --> Status: F Moderate normal respiratory elizabeth. STAIN GRAM --> Status: F Many polymorphonuclear cells/lpf. Rare epithelial cells/lpf. Many gram positive bacilli. Few gram positive cocci in pairs and chains. Few gram positive cocci in clusters. Rare gram negative bacilli. Rare epithelial cells/lpf. Many gram positive bacilli. Few gram positive cocci in pairs and chains. Few gram positive cocci in clusters. Rare gram negative bacilli. Normal [facility] Comment on above: Order Comment: Speci men Source Comment:Sputum, Suctioned Performed By: #### H EMDF, PT, BMP3M, PHOS3, MG3, CK3 #### [facility] [address] [place] [address] #### VD25H #### [facility] [address] [place] [address] Hemogram w/ Autodiffon 07-15 Abs Baso Cnt 0.0 10*3/uL Normal 0.0-0.2 [facility] Comment on above: Performed By: #### H EMDF, PT, BMP3M, PHOS3, MG3, CK3 #### [facility] [address] [place], [place] #### VD25H #### [facility] [address] [place] [address] Abs Neutrophile Cnt 13.2 10*3/uL High 1.8-7.0 [facility] Comment on above: Performed By: #### H EMDF, PT, BMP3M, PHOS3, MG3, CK3 #### [address] #### VD25H #### [facility] [address] [place] [address] Basophils/100 WBC (Bld) 0.2 % Normal 0.0-2.0 S [facility] Comment on above: Performed By: #### H EMDF, PT, BMP3M, PHOS3, MG3, CK3 #### [address] #### VD25H #### [facility] [address] [place] [address] Eosinophils #/vol (Bld) 0.0 10*3/uL Normal 0.0-0.5 [facility] Comment on above: Performed By: #### H EMDF, PT, BMP3M, PHOS3, MG3, CK3 #### [address] [place], [place] #### VD25H #### [facility] [address] [place] [address] Eosinophils/100 WBC (Bld) 0.1 % Low 1.0-6.0 [facility] Comment on above: Performed By: #### H EMDF, PT, BMP3M, PHOS3, MG3, CK3 #### [address] #### VD25H #### [facility] [address] [place] [address] Erythrocyte distribution width Ratio (RBC) 13.9 % Normal 11.5-14.5 [facility] Comment on above: Performed By: #### H EMDF, PT, BMP3M, PHOS3, MG3, CK3 #### [address] #### VD25H #### [facility] [address] [place] [address] Granulocytes/100 WBC (Bld) 88.1 % High 40.0-80.0 [facility] Comment on above: Performed By: #### H EMDF, PT, BMP3M, PHOS3, MG3, CK3 #### [address] #### VD25H #### [place] [address] [place] [address] Hematocrit Volume Fraction (Bld) 35.3 % Low 40.0-52.0 [facility] Comment on above: Performed By: #### H EMDF, PT, BMP3M, PHOS3, MG3, CK3 #### [address] #### VD25H #### [facility] [address] [place] [address] Hemoglobin mass conc (Bld) 11.9 g/dL Low 13.0-18.0 [facility] Comment on above: Performed By: #### H EMDF, PT, BMP3M, PHOS3, MG3, CK3 #### [address] #### VD25H #### [facility] [address] [place] [address] Lymphocytes #/vol (Bld) 0.8 10*3/uL Low 1.0-4.3 [facility] Comment on above: Performed By: #### H EMDF, PT, BMP3M, PHOS3, MG3, CK3 #### [address] #### VD25H #### [facility] [address] [place] [address] Lymphocytes/100 WBC (Bld) 5.0 % Low 20.0-40.0 [facility] Comment on above: Performed By: #### H EMDF, PT, BMP3M, PHOS3, MG3, CK3 #### [address] #### VD25H #### [facility] [address] [place] [address] MCH Entitic mass (RBC) 29.5 pg Normal 26.0-34.0 [facility] Comment on above: Performed By: #### H EMDF, PT, BMP3M, PHOS3, MG3, CK3 #### [address] #### VD25H #### [place] [address] [place] [address] MCHC mass conc (RBC) 33.8 % Normal 32.0-36.0 [facility] Comment on above: Performed By: #### H EMDF, PT, BMP3M, PHOS3, MG3, CK3 #### [address] #### VD25H #### [facility] [address] [place] [address] MCV Entitic volume (RBC) 87.2 fL Normal 80.0-98.0 [facility] Comment on above: Performed By: #### H EMDF, PT, BMP3M, PHOS3, MG3, CK3 #### [address] #### VD25H #### [facility] [address] [place] [address] Monocytes #/vol (Bld) 1.0 10*3/uL High 0.0-0.8 [facility] Comment on above: Performed By: #### H EMDF, PT, BMP3M, PHOS3, MG3, CK3 #### [address] #### VD25H #### [facility] [address] [place] [address] Monocytes/100 WBC (Bld) 6.6 % Normal 2.0-10.0 S [facility] Comment on above: Performed By: #### H EMDF, PT, BMP3M, PHOS3, MG3, CK3 #### [address] [place], [place] #### VD25H #### [facility] [address] [place] [address] Platelet mean volume Entitic volume (Bld) 7.9 fL Normal 7.4-10.4 [facility] Comment on above: Performed By: #### H EMDF, PT, BMP3M, PHOS3, MG3, CK3 #### [address] [place], [place] #### VD25H #### [facility] [address] [place] [address] Platelets #/vol (Bld) 319 10*3/uL Normal 140-440 [facility] Comment on above: Performed By: #### H EMDF, PT, BMP3M, PHOS3, MG3, CK3 #### [address] [place], [place] #### VD25H #### [facility] [address] [place] [address] RBC #/vol (Bld) 4.05 10*6/uL Low 4.40-5.90 [facility] Comment on above: Performed By: #### H EMDF, PT, BMP3M, PHOS3, MG3, CK3 #### [address] [place], [place] #### VD25H #### [facility] [address] [place] [address] WBC #/vol (Bld) 15.0 10*3/uL High 3.6-10.7 [facility] Comment on above: Performed By: #### H EMDF, PT, BMP3M, PHOS3, MG3, CK3 #### [address] [place], [place] #### VD25H #### [facility] [address] [place] [address] Basic Metabolic Panelon - Anion gap molar conc 9 Normal [facility] Comment on above: Performed By: #### H EMDF, PT, BMP3M, PHOS3, MG3, CK3 #### [place] [address] [address] [facility], [place] #### VD25H #### [facility] [address] [place] [address] Calcium mass conc 7.6 mg/dL Low 8.4-10.4 [facility] Comment on above: Performed By: #### H EMDF, PT, BMP3M, PHOS3, MG3, CK3 #### [address] [place], [place] #### VD25H #### [facility] [address] [place] [address] CO2 molar conc 26 mmol/L Normal 22-30 [facility] Comment on above: Performed By: #### H EMDF, PT, BMP3M, PHOS3, MG3, CK3 #### [address] [place], [place] #### VD25H #### [facility] [address] [place] [address] Glucose mass conc 148 mg/dL High 70-100 [facility] Comment on above: Performed By: #### H EMDF, PT, BMP3M, PHOS3, MG3, CK3 #### [place] [address] [address] [facility], [place] #### VD25H #### [facility] [address] [place] [address] Urea nitrogen mass conc 16 mg/dL Normal 7-20 S [facility] Comment on above: Performed By: #### H EMDF, PT, BMP3M, PHOS3, MG3, CK3 #### [address] [address] [place], [place] #### VD25H #### [facility] [address] [place] [place] [address] Creatinine mass conc 0.62 mg/dL Normal 0.52-1.25 [facility] Comment on above: Performed By: #### H EMDF, PT, BMP3M, PHOS3, MG3, CK3 #### [address] #### VD25H #### [facility] [address] [place] [address] GFR/1.73 sq M predicted among blacks MDRD vol rate/area (S/P/Bld) mL/min/{1.73_m2} Normal >60 [facility] Comment on above: Performed By: #### H EMDF, PT, BMP3M, PHOS3, MG3, CK3 #### [address] #### VD25H #### [facility] [address] [place] [address] GFR/1.73 sq M predicted among non-blacks MDRD vol rate/area (S/P/Bld) mL/min/{1.73_m2} Normal >60 [facility] Comment on above: Result Comment: Sour ce- MDRD equation with creatinine calibration to IDMS(NKDEP) eGFR not recommended for drug dose adjustment Performed By: #### H EMDF, PT, BMP3M, PHOS3, MG3, CK3 #### [address] #### VD25H #### [facility] [address] [place] [address] Potassium molar conc 4.5 mmol/L Normal 3.5-5.1 [facility] Comment on above: Performed By: #### H EMDF, PT, BMP3M, PHOS3, MG3, CK3 #### [address] #### VD25H #### [facility] [address] [place] [address] Sodium molar conc 137 mmol/L Normal 135-[address] [facility] Comment on above: Performed By: #### H EMDF, PT, BMP3M, PHOS3, MG3, CK3 #### [facility] [address] [place] [address] #### VD25H #### [facility] [address] [place] [address] Chloride molar conc 103 mmol/L Normal 98-107 [facility] Comment on above: Performed By: #### H EMDF, PT, BMP3M, PHOS3, MG3, CK3 #### [facility] [address] [place] [address] #### VD25H #### [facility] [address] [place] [address] CR Abdomen APon 07-14-2018 CR Abdomen AP Patient Name: KATHYA HOOPER Diagnostic Radiology Exam Date/Time 07/14/2018 19:15:43 EDT Exam CR Abdomen AP Ordering Physician [id number] AGUILERA Accession Number [id number] CPT4 Codes 28148 () Reason For Exam Distended with emesis Report SINGLE VIEW ABDOMEN CLINICAL INDICATION: Distended with emesis TECHNIQUE: Single view abdomen x-ray COMPARISON: Lumbar x-rays from 07/08/2018 FINDINGS: Gaseous distention of the stomach. A G-tube projects over the stomach. Diffuse gaseous distention of small and large bowel, most likely related to ileus. No evidence of free air. Ospina catheter noted. No suspicious calcifications. IMPRESSION: 1. Findings most compatible with ileus. Follow-up recommended. Report Dictated on Final Dictated: 07/14/2018 7:28 pm Dictating Physician: MD GILLIS JOHN R Signed Date and Time: 07/14/2018 7:30 pm Signed by: MD GILLIS JOHN R Transcribed Date and Time: 07/14/2018 7:28 Normal [facility] CR Chest Portableon 07-15-19 19 CR Chest Portable Patient Name: KATHYA HOOPER Diagnostic Radiology Exam Date/Time 07/14/2018 06:53:29 EDT Exam CR Chest Portable Ordering Physician MARIA EUGENIA PEREZ Accession Number [id number] CPT4 Codes 46581 () Reason For Exam ETT placement Report Examination: AP portable chest Clinical Indication: ETT placement Comparison: 07/13/2018 Findings: Right-sided subclavian central line catheter tip terminates at the mid SVC. Tracheostomy tube overlies the trachea. Heart size within normal limits. There is moderately diminished lung volumes with small pleural effusions and central vascular crowding/congestion. Postsurgical changes cervical spine with cutaneous jada and posterior fusion hardware. Impression: Moderately diminished lung volumes with small bilateral pleural effusions and mild pulmonary edema/vascular congestion. Worsening lung aeration from comparison exam. Placement of tracheostomy tube. Report Dictated on Final Dictated: 07/14/2018 11:51 am Dictating Physician: MD SIMPSON ANTHONY J Signed Date and Time: 07/14/2018 11:52 am Signed by: MD SIMPSON ANTHONY J Transcribed Date and Time: 07/14/2018 11:51 Normal [facility] Hemogram w/ Autodiffon 07-14 Abs Baso Cnt 0.0 10*3/uL Normal 0.0-0.2 [facility] Comment on above: Performed By: #### H EMDF, PT, BMP3M, PHOS3, MG3, CK3 #### [facility] [address] [place], [place] #### VD25H #### [facility] [address] [place] [address] Abs Neutrophile Cnt 11.7 10*3/uL High 1.8-7.0 [facility] Comment on above: Performed By: #### H EMDF, PT, BMP3M, PHOS3, MG3, CK3 #### [facility] [address] [place], [place] #### VD25H #### [facility] [address] [place] [address] Basophils/100 WBC (Bld) 0.3 % Normal 0.0-2.0 S [facility] Comment on above: Performed By: #### H EMDF, PT, BMP3M, PHOS3, MG3, CK3 #### [facility] [address] [place], [place] #### VD25H #### [facility] [address] [place] [address] Eosinophils #/vol (Bld) 0.0 10*3/uL Normal 0.0-0.5 [facility] Comment on above: Performed By: #### H EMDF, PT, BMP3M, PHOS3, MG3, CK3 #### [address] #### VD25H #### [facility] [address] [place] [address] Eosinophils/100 WBC (Bld) 0.1 % Low 1.0-6.0 [facility] Comment on above: Performed By: #### H EMDF, PT, BMP3M, PHOS3, MG3, CK3 #### [address] #### VD25H #### [facility] [address] [place] [address] Erythrocyte distribution width Ratio (RBC) 13.8 % Normal 11.5-14.5 [facility] Comment on above: Performed By: #### H EMDF, PT, BMP3M, PHOS3, MG3, CK3 #### [address] #### VD25H #### [facility] [address] [place] [address] Granulocytes/100 WBC (Bld) 89.1 % High 40.0-80.0 [facility] Comment on above: Performed By: #### H EMDF, PT, BMP3M, PHOS3, MG3, CK3 #### [address] #### VD25H #### [facility] [address] [place] [address] Hematocrit Volume Fraction (Bld) 33.8 % Low 40.0-52.0 [facility] Comment on above: Performed By: #### H EMDF, PT, BMP3M, PHOS3, MG3, CK3 #### [address] #### VD25H #### [facility] [address] [place] [address] Hemoglobin mass conc (Bld) 11.5 g/dL Low 13.0-18.0 [facility] Comment on above: Performed By: #### H EMDF, PT, BMP3M, PHOS3, MG3, CK3 #### [address] #### VD25H #### [place] [address] [place] [address] Lymphocytes #/vol (Bld) 0.6 10*3/uL Low 1.0-4.3 [facility] Comment on above: Performed By: #### H EMDF, PT, BMP3M, PHOS3, MG3, CK3 #### [address] #### VD25H #### [place] [address] [place] [address] Lymphocytes/100 WBC (Bld) 4.5 % Low 20.0-40.0 [facility] Comment on above: Performed By: #### H EMDF, PT, BMP3M, PHOS3, MG3, CK3 #### [address] #### VD25H #### [facility] [address] [place] [address] MCH Entitic mass (RBC) 29.6 pg Normal 26.0-34.0 [facility] Comment on above: Performed By: #### H EMDF, PT, BMP3M, PHOS3, MG3, CK3 #### [address], [place] #### VD25H #### [facility] [address] [place] [address] MCHC mass conc (RBC) 33.9 % Normal 32.0-36.0 [facility] Comment on above: Performed By: #### H EMDF, PT, BMP3M, PHOS3, MG3, CK3 #### [address] #### VD25H #### [facility] [address] [place] [address] MCV Entitic volume (RBC) 87.3 fL Normal 80.0-98.0 [facility] Comment on above: Performed By: #### H EMDF, PT, BMP3M, PHOS3, MG3, CK3 #### [address] #### VD25H #### [facility] [address] [place] [address] Monocytes #/vol (Bld) 0.8 10*3/uL Normal 0.0-0.8 [facility] Comment on above: Performed By: #### H EMDF, PT, BMP3M, PHOS3, MG3, CK3 #### [address] #### VD25H #### [place] [address] [place] [address] Monocytes/100 WBC (Bld) 6.0 % Normal 2.0-10.0 [facility] Comment on above: Performed By: #### H EMDF, PT, BMP3M, PHOS3, MG3, CK3 #### [address] #### VD25H #### [facility] [address] [place] [address] Platelet mean volume Entitic volume (Bld) 8.1 fL Normal 7.4-10.4 [facility] Comment on above: Performed By: #### H EMDF, PT, BMP3M, PHOS3, MG3, CK3 #### [facility] [address] [place], [place] #### VD25H #### [facility] [address] [place] [address] Platelets #/vol (Bld) 196 10*3/uL Normal 140-440 [facility] Comment on above: Performed By: #### H EMDF, PT, BMP3M, PHOS3, MG3, CK3 #### [place] [address] [place], [place] #### VD25H #### [place] [address] [place] [address] RBC #/vol (Bld) 3.87 10*6/uL Low 4.40-5.[address] [facility] Comment on above: Performed By: #### H EMDF, PT, BMP3M, PHOS3, MG3, CK3 #### [place] [address] [place], [place] #### VD25H #### [place] [address] [place] [address] WBC #/vol (Bld) 13.2 10*3/uL High 3.6-10.[address] [facility] Comment on above: Performed By: #### H EMDF, PT, BMP3M, PHOS3, MG3, CK3 #### [address] [place], [place] #### VD25H #### [place] [address] [place] [address] Add on test from HISon 07-13 Add on test from HIS Rejected Normal [facility] Comment on above: Result Comment: No s pecimen available for addon. Performed By: #### H EMDF, PT, BMP3M, PHOS3, MG3, CK3 #### [place] [address] [place], [place] #### VD25H #### [facility] [address] [place] [address] Arterial Blood Gaseson 07-13 CO2 molar conc 25.6 mmol/L Normal 23.0-27.0 [facility] Comment on above: Performed By: #### H EMDF, PT, BMP3M, PHOS3, MG3, CK3 #### [address] #### VD25H #### [facility] [address] [place] [address] HCO3 molar conc (Bld) 24.5 mmol/L Normal 21.0-25.0 [facility] Comment on above: Performed By: #### H EMDF, PT, BMP3M, PHOS3, MG3, CK3 #### [address] #### VD25H #### [address] [place] [address] Hemoglobin mass conc (Bld) 9.7 g/dL Normal ScreenOnly [facility] Comment on above: Performed By: #### H EMDF, PT, BMP3M, PHOS3, MG3, CK3 #### [address] #### VD25H #### [facility] [address] [place] [place] [address] Oxygen ppres (Bld) 99.9 mm[Hg] Normal 80.0-100.0 [facility] Comment on above: Performed By: #### H EMDF, PT, BMP3M, PHOS3, MG3, CK3 #### [address] #### VD25H #### [facility] [address] [place] [address] Oxygen saturation in Blood 97.5 % Normal 95.0-100.0 [facility] Comment on above: Performed By: #### H EMDF, PT, BMP3M, PHOS3, MG3, CK3 #### [address] #### VD25H #### [facility] [address] [place] [address] pCO2 36.0 mm[Hg] Normal 35.0-45.0 [facility] Comment on above: Performed By: #### H EMDF, PT, BMP3M, PHOS3, MG3, CK3 #### [facility] [address] [place], [place] #### VD25H #### [facility] [address] [place] [address] pH (Bld) 7.450 Normal 7.350-7.450 [facility] Comment on above: Performed By: #### H EMDF, PT, BMP3M, PHOS3, MG3, CK3 #### [address] #### VD25H #### [facility] [address] [place] [address] Std Base Excess 0.6 mmol/L Normal -3.0-3.0 [facility] Comment on above: Performed By: #### H EMDF, PT, BMP3M, PHOS3, MG3, CK3 #### [address] #### VD25H #### [facility] [address] [place] [address] FIO2 .50 Normal [facility] Comment on above: Performed By: #### H EMDF, PT, BMP3M, PHOS3, MG3, CK3 #### [address] #### VD25H #### [facility] [address] [place] [address] Basic Metabolic Panelon 06-29 Calcium mass conc 7.6 mg/dL Low 8.4-10.4 [facility] Comment on above: Performed By: #### H EMDF, PT, BMP3M, PHOS3, MG3, CK3 #### [address] #### VD25H #### [facility] [address] [place] [address] Glucose mass conc 120 mg/dL High 70-[address] [facility] Comment on above: Performed By: #### H EMDF, PT, BMP3M, PHOS3, MG3, CK3 #### [facility] [address] [place] [address] #### VD25H #### [facility] [address] [place] [address] Anion gap molar conc 7 Normal [facility] Comment on above: Performed By: #### H EMDF, PT, BMP3M, PHOS3, MG3, CK3 #### [place] [address] [place], [place] #### VD25H #### [facility] [address] [place] [address] CO2 molar conc 27 mmol/L Normal 22-30 [facility] Comment on above: Performed By: #### H EMDF, PT, BMP3M, PHOS3, MG3, CK3 #### [place] [address] [place], [place] #### VD25H #### [facility] [address] [place] [address] Creatinine mass conc 0.62 mg/dL Normal 0.52-1.25 [facility] Comment on above: Performed By: #### H EMDF, PT, BMP3M, PHOS3, MG3, CK3 #### [address] [address] [place], [place] #### VD25H #### [facility] [address] [place] [address] GFR/1.73 sq M predicted among blacks MDRD vol rate/area (S/P/Bld) mL/min/{1.73_m2} Normal >60 [facility] Comment on above: Performed By: #### H EMDF, PT, BMP3M, PHOS3, MG3, CK3 #### [place] [address] [place], [place] #### VD25H #### [facility] [address] [place] [address] GFR/1.73 sq M predicted among non-blacks MDRD vol rate/area (S/P/Bld) mL/min/{1.73_m2} Normal >60 [facility] Comment on above: Result Comment: Sour ce- MDRD equation with creatinine calibration to IDMS(NKDEP) eGFR not recommended for drug dose adjustment Performed By: #### H EMDF, PT, BMP3M, PHOS3, MG3, CK3 #### [facility] [address] [place], [place] #### VD25H #### [facility] [address] [place] [address] Urea nitrogen mass conc 17 mg/dL Normal 7-20 S [facility] Comment on above: Performed By: #### H EMDF, PT, BMP3M, PHOS3, MG3, CK3 #### [address] #### VD25H #### [facility] [address] [place] [address] Chloride molar conc 105 mmol/L Normal 98-107 [facility] Comment on above: Performed By: #### H EMDF, PT, BMP3M, PHOS3, MG3, CK3 #### [address] #### VD25H #### [facility] [address] [place] [address] Potassium molar conc 3.8 mmol/L Normal 3.5-5.1 [facility] Comment on above: Performed By: #### H EMDF, PT, BMP3M, PHOS3, MG3, CK3 #### [address], [place] #### VD25H #### [facility] [address] [place] [address] Sodium molar conc 139 mmol/L Normal 135-145 [facility] Comment on above: Performed By: #### H EMDF, PT, BMP3M, PHOS3, MG3, CK3 #### [address] [address] #### VD25H #### [facility] [employer] [facility] [address] [place] [address] CR Chest Portableon 07-14-19 19 CR Chest Portable Patient Name: KATHYA HOOPER Diagnostic Radiology Exam Date/Time 07/13/2018 06:05:45 EDT Exam CR Chest Portable Ordering Physician MARIA EUGENIA PEREZ Accession Number [id number] CPT4 Codes 22725 () Reason For Exam ETT placement Report EXAM TYPE: RADIOLOGIC EXAMINATION, CHEST, SINGLE VIEW FRONTAL (CXR SINGLE VIEW) EXAM DATE AND TIME: 07/13/2018 6:05 AM EDT INDICATION: Respiratory distress COMPARISON: 07/12/2018 TECHNIQUE: A single frontal view of the thorax was obtained and reviewed. Special views: None. IMPRESSION: 1. Lines/Tubes/Devices/H ardware: Projection of the endotracheal tube, NG tube, right subclavian catheter stable. Please confirm position/function of devices/catheters clinically. 2. Lungs: Abnormal. Similar previous. Lower lobe volume loss/consolidation. These infiltrate or edema. 3. Pleura: Effusions present. No significant pneumothorax. 4. Heart and mediastinum: Limited. Adjacent volume loss. Patient rotated. 5. Upper abdomen: No acute process seen. Report Dictated on Final Dictated: 07/13/2018 6:33 am Dictating Physician: MD MADERA JOHN Signed Date and Time: 07/13/2018 6:35 am Signed by: MD MADERA JOHN Transcribed Date and Time: 07/13/2018 6:33 Normal [facility] Calcium,Ionizedon 07-13-2018 Ionized Ca,Measured 4.10 mg/dL Low 4.30-5.20 [facility] Comment on above: Performed By: #### H EMDF, PT, BMP3M, PHOS3, MG3, CK3 #### [facility] [employer] [address] [place] [address] #### VD25H #### [facility] [employer] [facility] [address] [place] [address] pH, Ionized Calcium 7.40 Normal 7.31-7.46 [facility] Comment on above: Performed By: #### H EMDF, PT, BMP3M, PHOS3, MG3, CK3 #### [facility] [address] [place], [place] #### VD25H #### [facility] [address] [place] [address] Hemogram w/ Autodiffon 07-13 Abs Baso Cnt 0.0 10*3/uL Normal 0.0-0.2 [facility] Comment on above: Performed By: #### H EMDF, PT, BMP3M, PHOS3, MG3, CK3 #### [address] #### VD25H #### [facility] [address] [place] [address] Abs Neutrophile Cnt 11.2 10*3/uL High 1.8-7.0 [facility] Comment on above: Performed By: #### H EMDF, PT, BMP3M, PHOS3, MG3, CK3 #### [address] #### VD25H #### [facility] [address] [place] [address] Basophils/100 WBC (Bld) 0.3 % Normal 0.0-2.0 S [facility] Comment on above: Performed By: #### H EMDF, PT, BMP3M, PHOS3, MG3, CK3 #### [address] #### VD25H #### [facility] [address] [place] [address] Eosinophils #/vol (Bld) 0.2 10*3/uL Normal 0.0-0.5 [facility] Comment on above: Performed By: #### H EMDF, PT, BMP3M, PHOS3, MG3, CK3 #### [address] #### VD25H #### [facility] [address] [place] [address] Eosinophils/100 WBC (Bld) 1.1 % Normal 1.0-6.0 [facility] Comment on above: Performed By: #### H EMDF, PT, BMP3M, PHOS3, MG3, CK3 #### [address] #### VD25H #### [facility] [address] [place] [address] Erythrocyte distribution width Ratio (RBC) 13.9 % Normal 11.5-14.5 [facility] Comment on above: Performed By: #### H EMDF, PT, BMP3M, PHOS3, MG3, CK3 #### [address] #### VD25H #### [facility] [address] [place] [address] Granulocytes/100 WBC (Bld) 82.2 % High 40.0-80.0 [facility] Comment on above: Performed By: #### H EMDF, PT, BMP3M, PHOS3, MG3, CK3 #### [address] #### VD25H #### [facility] [address] [place] [address] Hematocrit Volume Fraction (Bld) 36.7 % Low 40.0-52.0 [facility] Comment on above: Performed By: #### H EMDF, PT, BMP3M, PHOS3, MG3, CK3 #### [address] #### VD25H #### [facility] [address] [place] [address] Hemoglobin mass conc (Bld) 12.6 g/dL Low 13.0-18.0 [facility] Comment on above: Performed By: #### H EMDF, PT, BMP3M, PHOS3, MG3, CK3 #### [address] #### VD25H #### [facility] [address] [place] [address] Lymphocytes #/vol (Bld) 1.1 10*3/uL Normal 1.0-4.3 [facility] Comment on above: Performed By: #### H EMDF, PT, BMP3M, PHOS3, MG3, CK3 #### [address] #### VD25H #### [facility] [address] [place] [address] Lymphocytes/100 WBC (Bld) 8.2 % Low 20.0-40.0 [facility] Comment on above: Performed By: #### H EMDF, PT, BMP3M, PHOS3, MG3, CK3 #### [address] #### VD25H #### [place] [address] [place] [address] MCH Entitic mass (RBC) 29.6 pg Normal 26.0-34.0 [facility] Comment on above: Performed By: #### H EMDF, PT, BMP3M, PHOS3, MG3, CK3 #### [address] #### VD25H #### [place] [address] [place] [address] MCHC mass conc (RBC) 34.4 % Normal 32.0-36.0 [facility] Comment on above: Performed By: #### H EMDF, PT, BMP3M, PHOS3, MG3, CK3 #### [address] #### VD25H #### [facility] [address] [place] [address] MCV Entitic volume (RBC) 86.2 fL Normal 80.0-98.0 [facility] Comment on above: Performed By: #### H EMDF, PT, BMP3M, PHOS3, MG3, CK3 #### [address] #### VD25H #### [facility] [address] [place] [address] Monocytes #/vol (Bld) 1.1 10*3/uL High 0.0-0.8 [facility] Comment on above: Performed By: #### H EMDF, PT, BMP3M, PHOS3, MG3, CK3 #### [place] [address] [place], [place] #### VD25H #### [facility] [address] [place] [address] Monocytes/100 WBC (Bld) 8.2 % Normal 2.0-10.0 S [facility] Comment on above: Performed By: #### H EMDF, PT, BMP3M, PHOS3, MG3, CK3 #### [address] #### VD25H #### [facility] [address] [place] [address] Platelet mean volume Entitic volume (Bld) 8.1 fL Normal 7.4-10.4 [facility] Comment on above: Performed By: #### H EMDF, PT, BMP3M, PHOS3, MG3, CK3 #### [address] #### VD25H #### [facility] [address] [place] [address] Platelets #/vol (Bld) 194 10*3/uL Normal 140-440 [facility] Comment on above: Performed By: #### H EMDF, PT, BMP3M, PHOS3, MG3, CK3 #### [address] #### VD25H #### [facility] [address] [place] [address] RBC #/vol (Bld) 4.26 10*6/uL Low 4.40-5.[address] [facility] Comment on above: Performed By: #### H EMDF, PT, BMP3M, PHOS3, MG3, CK3 #### [address] #### VD25H #### [facility] [address] [place] [address] WBC #/vol (Bld) 13.7 10*3/uL High 3.6-10.7 [facility] Comment on above: Performed By: #### H EMDF, PT, BMP3M, PHOS3, MG3, CK3 #### [address] #### VD25H #### [place] [address] [place] [address] Arterial Blood Gaseson 07-12 CO2 molar conc 26.4 mmol/L Normal 23.0-27.0 [facility] Comment on above: Performed By: #### H EMDF, PT, BMP3M, PHOS3, MG3, CK3 #### [address] #### VD25H #### [address] [place] [address] HCO3 molar conc (Bld) 25.2 mmol/L High 21.0-25.0 [facility] Comment on above: Performed By: #### H EMDF, PT, BMP3M, PHOS3, MG3, CK3 #### [address] #### VD25H #### [place] [address] [place] [address] Hemoglobin mass conc (Bld) 13.9 g/dL Normal ScreenOnly [facility] Comment on above: Performed By: #### H EMDF, PT, BMP3M, PHOS3, MG3, CK3 #### [address] #### VD25H #### [place] [address] [place] [place] [address] Oxygen ppres (Bld) 83.9 mm[Hg] Normal 80.0-100.0 [facility] Comment on above: Performed By: #### H EMDF, PT, BMP3M, PHOS3, MG3, CK3 #### [place] [address] [place], [place] #### VD25H #### [facility] [address] [place] [address] Oxygen saturation in Blood 96.3 % Normal 95.0-100.0 [facility] Comment on above: Performed By: #### H EMDF, PT, BMP3M, PHOS3, MG3, CK3 #### [address] [place], [place] #### VD25H #### [facility] [address] [place] [address] pCO2 38.2 mm[Hg] Normal 35.0-45.0 [facility] Comment on above: Performed By: #### H EMDF, PT, BMP3M, PHOS3, MG3, CK3 #### [place] [address] [address] [facility], [place] #### VD25H #### [facility] [address] [place] [address] pH (Bld) 7.437 Normal 7.350-7.450 [facility] Comment on above: Performed By: #### H EMDF, PT, BMP3M, PHOS3, MG3, CK3 #### [address] #### VD25H #### [facility] [address] [place] [address] Std Base Excess 1.1 mmol/L Normal -3.0-3.0 [facility] Comment on above: Performed By: #### H EMDF, PT, BMP3M, PHOS3, MG3, CK3 #### [place] [address] [facility], [place] #### VD25H #### [facility] [address] [place] [address] FIO2 50% Normal [facility] Comment on above: Performed By: #### H EMDF, PT, BMP3M, PHOS3, MG3, CK3 #### [address] #### VD25H #### [facility] [address] [place] [address] CO2 molar conc 27.2 mmol/L High 23.0-27.0 [facility] Comment on above: Performed By: #### H EMDF, PT, BMP3M, PHOS3, MG3, CK3 #### [address] [place], [place] #### VD25H #### [facility] [address] [place] [address] HCO3 molar conc (Bld) 26.1 mmol/L High 21.0-25.0 [facility] Comment on above: Performed By: #### H EMDF, PT, BMP3M, PHOS3, MG3, CK3 #### [address] #### VD25H #### [facility] [address] [place] [address] Hemoglobin mass conc (Bld) 14.7 g/dL Normal ScreenOnly [facility] Comment on above: Performed By: #### H EMDF, PT, BMP3M, PHOS3, MG3, CK3 #### [address] #### VD25H #### [facility] [address] [place] [address] Oxygen ppres (Bld) 125.7 mm[Hg] High 80.0-100.0 [facility] Comment on above: Performed By: #### H EMDF, PT, BMP3M, PHOS3, MG3, CK3 #### [address] #### VD25H #### [facility] [address] [place] [address] Oxygen saturation in Blood 98.6 % Normal 95.0-100.0 [facility] Comment on above: Performed By: #### H EMDF, PT, BMP3M, PHOS3, MG3, CK3 #### [place] [address] [place] #### VD25H #### [facility] [address] [place] [address] pCO2 37.5 mm[Hg] Normal 35.0-45.0 [facility] Comment on above: Performed By: #### H EMDF, PT, BMP3M, PHOS3, MG3, CK3 #### [place] [address] [place] #### VD25H #### [facility] [address] [place] [address] pH (Bld) 7.460 High 7.350-7.450 [facility] Comment on above: Performed By: #### H EMDF, PT, BMP3M, PHOS3, MG3, CK3 #### [address] #### VD25H #### [facility] [address] [place] [address] Std Base Excess 2.4 mmol/L Normal -3.0-3.0 [facility] Comment on above: Performed By: #### H EMDF, PT, BMP3M, PHOS3, MG3, CK3 #### [address] #### VD25H #### [facility] [address] [place] [address] FIO2 62.5 Normal [facility] Comment on above: Performed By: #### H EMDF, PT, BMP3M, PHOS3, MG3, CK3 #### [address] #### VD25H #### [facility] [address] [place] [address] Basic Metabolic Panelon 06-29 Anion gap molar conc 6 Normal [facility] Comment on above: Performed By: #### H EMDF, PT, BMP3M, PHOS3, MG3, CK3 #### [address] [place], [place] #### VD25H #### [facility] [address] [place] [address] Calcium mass conc 8.0 mg/dL Low 8.4-10.[address] [facility] Comment on above: Performed By: #### H EMDF, PT, BMP3M, PHOS3, MG3, CK3 #### [address] [place] #### VD25H #### [facility] [address] [place] [address] CO2 molar conc 28 mmol/L Normal 22-30 [facility] Comment on above: Performed By: #### H EMDF, PT, BMP3M, PHOS3, MG3, CK3 #### [address] #### VD25H #### [facility] [address] [place] [address] Creatinine mass conc 0.62 mg/dL Normal 0.52-1.25 [facility] Comment on above: Performed By: #### H EMDF, PT, BMP3M, PHOS3, MG3, CK3 #### [address] #### VD25H #### [facility] [address] [place] [address] GFR/1.73 sq M predicted among blacks MDRD vol rate/area (S/P/Bld) mL/min/{1.73_m2} Normal >60 [facility] Comment on above: Performed By: #### H EMDF, PT, BMP3M, PHOS3, MG3, CK3 #### [address] [place], [place] #### VD25H #### [facility] [address] [place] [address] GFR/1.73 sq M predicted among non-blacks MDRD vol rate/area (S/P/Bld) mL/min/{1.73_m2} Normal >60 [facility] Comment on above: Result Comment: Sour ce- MDRD equation with creatinine calibration to IDMS(NKDEP) eGFR not recommended for drug dose adjustment Performed By: #### H EMDF, PT, BMP3M, PHOS3, MG3, CK3 #### [facility] [address] [place], [place] #### VD25H #### [facility] [address] [place] [address] Glucose mass conc 125 mg/dL High 70-100 [facility] Comment on above: Performed By: #### H EMDF, PT, BMP3M, PHOS3, MG3, CK3 #### [address] [place] #### VD25H #### [facility] [address] [place] [address] Urea nitrogen mass conc 12 mg/dL Normal 7-20 S [facility] Comment on above: Performed By: #### H EMDF, PT, BMP3M, PHOS3, MG3, CK3 #### [address] [address] [place] #### VD25H #### [facility] [address] [place] [address] Chloride molar conc 104 mmol/L Normal 98-107 [facility] Comment on above: Performed By: #### H EMDF, PT, BMP3M, PHOS3, MG3, CK3 #### [address] [place] #### VD25H #### [facility] [address] [place] [address] Potassium molar conc 3.6 mmol/L Normal 3.5-5.1 [facility] Comment on above: Performed By: #### H EMDF, PT, BMP3M, PHOS3, MG3, CK3 #### [address] [place] #### VD25H #### [facility] [address] [place] [address] Sodium molar conc 138 mmol/L Normal 135-145 [facility] Comment on above: Performed By: #### H EMDF, PT, BMP3M, PHOS3, MG3, CK3 #### [facility] [address] [place] [address] #### VD25H #### [facility] [address] [place] [address] CR Chest Portableon 07-13-19 19 CR Chest Portable Patient Name: KATHYA HOOPER Diagnostic Radiology Exam Date/Time 07/12/2018 10:18:11 EDT Exam CR Chest Portable Ordering Physician MARIA EUGENIA PEREZ Accession Number [id number] CPT4 Codes 97152 () Reason For Exam ETT Placement Report PORTABLE CHEST X-RAY CLINICAL INDICATION: Endotracheal tube placement A portable frontal view of the chest was obtained. COMPARISON: 07/12/2018 at 5:52 AM FINDINGS: The heart size is at the upper limits of normal. There has been placement of an endotracheal tube which terminates approximately 5.5 cm above the alma. Feeding tube terminates below the level of the diaphragm. The tip is not seen. Right subclavian line is unchanged. There are low lung volumes with streaky basilar atelectasis or infiltrate, worse on the left. There may be a small left pleural effusion, grossly unchanged. There is no evidence of pneumothorax. Bony structures are unremarkable. IMPRESSION: Lines and tubes as above. Low lung volumes with streaky left retrocardiac atelectasis or infiltrate and possible small left pleural effusion. More mild atelectasis or an alternate the right lung base is also noted. These findings appear stable when compared to the study from earlier the same day. Report Dictated on Final Dictated: 07/12/2018 1:21 pm Dictating Physician: MD RODRIGUEZ JONATHAN R Signed Date and Time: 07/12/2018 1:23 pm Signed by: MD RODRIGUEZ JONATHAN R Transcribed Date and Time: 07/12/2018 1:21 Normal [facility] CR Chest Portable Patient Name: KATHYA HOOPER Diagnostic Radiology Exam Date/Time 07/12/2018 06:19:03 EDT Exam CR Chest Portable Ordering Physician MD NATE, NICOLE HOLLEY Accession Number [id number] CPT4 Codes 17883 () Reason For Exam dyspnea Report PORTABLE CHEST X-RAY CLINICAL INDICATION: Dyspnea A portable frontal view of the chest was obtained. COMPARISON: 07/11/2018 FINDINGS: The heart size is within normal limits. There is streaky consolidation within the left lung base, worsened when compared to the prior examination. Atelectasis at the right lung base is grossly similar. Low lung volumes are noted. There is no large pleural effusion or pneumothorax. Right subclavian line is unchanged. Previously noted endotracheal tube and feeding tube have been removed. Incidental note is made of gaseous distention of the stomach and colon, incompletely visualized. IMPRESSION: Endotracheal tube and feeding tube have been removed. Right subclavian line appears unchanged. Low lung volumes. Streaky consolidation within the left retrocardiac region appears worsened. Right basilar atelectasis is grossly unchanged. There appears to be gaseous distention of the stomach and/or colon within the visualized portion of the upper abdomen. Plain films of the abdomen would be helpful for additional evaluation. Report Dictated on Final Dictated: 07/12/2018 8:01 am Dictating Physician: MD RODRIGUEZ JONATHAN R Signed Date and Time: 07/12/2018 8:02 am Signed by: MD RODRIGUEZ JONATHAN R Transcribed Date and Time: 07/12/2018 8:01 Normal [facility] Hemogram w/ Autodiffon 07-12 Abs Baso Cnt 0.0 10*3/uL Normal 0.0-0.2 [facility] Comment on above: Performed By: #### H EMDF, PT, BMP3M, PHOS3, MG3, CK3 #### [facility] [address] [place] [address] #### VD25H #### [facility] [address] [place] [address] Abs Neutrophile Cnt 10.2 10*3/uL High 1.8-7.0 [facility] Comment on above: Performed By: #### H EMDF, PT, BMP3M, PHOS3, MG3, CK3 #### [facility] [address] [place], [place] #### VD25H #### [facility] [address] [place] [address] Basophils/100 WBC (Bld) 0.4 % Normal 0.0-2.0 [facility] Comment on above: Performed By: #### H EMDF, PT, BMP3M, PHOS3, MG3, CK3 #### [address] #### VD25H #### [facility] [address] [place] [address] Eosinophils #/vol (Bld) 0.1 10*3/uL Normal 0.0-0.5 [facility] Comment on above: Performed By: #### H EMDF, PT, BMP3M, PHOS3, MG3, CK3 #### [address] #### VD25H #### [facility] [address] [place] [address] Eosinophils/100 WBC (Bld) 0.6 % Low 1.0-6.0 [facility] Comment on above: Performed By: #### H EMDF, PT, BMP3M, PHOS3, MG3, CK3 #### [address] #### VD25H #### [facility] [address] [place] [address] Erythrocyte distribution width Ratio (RBC) 13.5 % Normal 11.5-14.5 [facility] Comment on above: Performed By: #### H EMDF, PT, BMP3M, PHOS3, MG3, CK3 #### [address] #### VD25H #### [facility] [address] [place] [address] Granulocytes/100 WBC (Bld) 84.7 % High 40.0-80.0 [facility] Comment on above: Performed By: #### H EMDF, PT, BMP3M, PHOS3, MG3, CK3 #### [facility] [address] [place], [place] #### VD25H #### [facility] [address] [place] [address] Hematocrit Volume Fraction (Bld) 39.7 % Low 40.0-52.0 [facility] Comment on above: Performed By: #### H EMDF, PT, BMP3M, PHOS3, MG3, CK3 #### [address] [address] [place], [place] #### VD25H #### [facility] [address] [place] [address] Hemoglobin mass conc (Bld) 13.5 g/dL Normal 13.0-18.0 [facility] Comment on above: Performed By: #### H EMDF, PT, BMP3M, PHOS3, MG3, CK3 #### [address] #### VD25H #### [facility] [address] [place] [address] Lymphocytes #/vol (Bld) 0.9 10*3/uL Low 1.0-4.3 [facility] Comment on above: Performed By: #### H EMDF, PT, BMP3M, PHOS3, MG3, CK3 #### [address] [place], [place] #### VD25H #### [facility] [address] [place] [address] Lymphocytes/100 WBC (Bld) 7.6 % Low 20.0-40.0 [facility] Comment on above: Performed By: #### H EMDF, PT, BMP3M, PHOS3, MG3, CK3 #### [address] #### VD25H #### [facility] [address] [place] [address] MCH Entitic mass (RBC) 29.6 pg Normal 26.0-34.0 [facility] Comment on above: Performed By: #### H EMDF, PT, BMP3M, PHOS3, MG3, CK3 #### [address] [place], [place] #### VD25H #### [facility] [address] [place] [address] MCHC mass conc (RBC) 34.1 % Normal 32.0-36.0 [facility] Comment on above: Performed By: #### H EMDF, PT, BMP3M, PHOS3, MG3, CK3 #### [address] #### VD25H #### [place] [address] [place] [address] MCV Entitic volume (RBC) 87.0 fL Normal 80.0-98.0 [facility] Comment on above: Performed By: #### H EMDF, PT, BMP3M, PHOS3, MG3, CK3 #### [address] #### VD25H #### [place] [address] [place] [address] Monocytes #/vol (Bld) 0.8 10*3/uL Normal 0.0-0.8 [facility] Comment on above: Performed By: #### H EMDF, PT, BMP3M, PHOS3, MG3, CK3 #### [address] #### VD25H #### [place] [address] [place] [address] Monocytes/100 WBC (Bld) 6.7 % Normal 2.0-10.0 [facility] Comment on above: Performed By: #### H EMDF, PT, BMP3M, PHOS3, MG3, CK3 #### [address] #### VD25H #### [facility] [address] [place] [address] Platelet mean volume Entitic volume (Bld) 8.4 fL Normal 7.4-10.4 [facility] Comment on above: Performed By: #### H EMDF, PT, BMP3M, PHOS3, MG3, CK3 #### [address] [address] [place], [place] #### VD25H #### [facility] [address] [place] [address] Platelets #/vol (Bld) 185 10*3/uL Normal 140-440 [facility] Comment on above: Performed By: #### H EMDF, PT, BMP3M, PHOS3, MG3, CK3 #### [address] #### VD25H #### [place] [address] [place] [address] RBC #/vol (Bld) 4.57 10*6/uL Normal 4.40-5.[address] [facility] Comment on above: Performed By: #### H EMDF, PT, BMP3M, PHOS3, MG3, CK3 #### [address] #### VD25H #### [place] [address] [place] [address] WBC #/vol (Bld) 12.1 10*3/uL High 3.6-10.[address] [facility] Comment on above: Performed By: #### H EMDF, PT, BMP3M, PHOS3, MG3, CK3 #### [address] #### VD25H #### [place] [address] [place] [address] VL Venous Duplex US Lower Ex t Bilateralon 07-12-2018 VL Venous Duplex US Lower Ext Bilateral Patient Name: KATHYA HOOPER Ultrasound Exam Date/Time 07/12/2018 17:20:46 EDT Exam VL Venous Duplex US Lower Ext Bilateral Ordering Physician MD AVELAR ADAM Accession Number [id number] CPT4 Codes 62360 () Reason For Exam leg swelling Report [facility] --- Lower Extremity Venous Duplex Report Patient Name: Kathya Hooper : 1955 Study Date: 07/12/2018 W (63yrs) Age: 63 Account: [id number] Gender: M Loc: [id number] BP: Ordering: Joshua Avelar Technologist: Ordering Physician: Joshua Avelar Metal Burrer: Elizabeth Sanford RVT Interpreting Physician: Krysta Arora --- Location: [facility] --- INDICATIONS: Edema. bilateral calves. --- CONCLUSIONS 1. Normal venous duplex --- IMPRESSIONS: These findings are negative for deep or superficial vein thrombosis in the bilateral lower extremities. --- STUDY DATA: Complete lower extremity venous duplex evaluation. Birthdate: Patient birthdate: 1955. Age: Patient is 63 yr old. Sex: Gender: male. Ethnicity: Ethnicity: white. Doppler flow study including spectral analysis, color and boland scale imaging. Patient status: Inpatient. Procedure: A vascular evaluation was performed. The images were obtained using a Innovate2 E9 vascular ultrasound machine. --- VENOUS FLOW AND IMAGING: + ---------+-------+--- --+ !Location !Overall!Flow properties ! + ---------+-------+--- --+ !Right common femoral !Patent !Normal phasicity; spontaneous; normal ! ! ! !augmentation; compressible ! + ---------+-------+--- --+ !Right saphenofemoral junction!Patent !Compressible ! + ---------+-------+--- --+ !Right profunda femoral !Patent !Normal phasicity; spontaneous; normal ! ! ! !augmentation ! + ---------+-------+--- --+ !R femoral proximal !Patent !Compressible ! + ---------+-------+--- --+ !R femoral mid !Patent !Normal phasicity; spontaneous; normal ! ! ! !augmentation; compressible ! + ---------+-------+--- --+ !R femoral distal !Patent !Compressible ! + ---------+-------+--- --+ !Right popliteal !Patent !Normal phasicity; spontaneous; normal ! ! ! !augmentation; compressible ! + ---------+-------+--- --+ !Right gastrocnemius !Patent !Compressible ! + ---------+-------+--- --+ !Right posterior tibial !Patent !Compressible ! + ---------+-------+--- --+ !Right peroneal !Patent !Compressible ! + ---------+-------+--- --+ !Right soleal !Patent !Compressible ! + ---------+-------+--- --+ !Right greater saphenous !Patent !Compressible ! + ---------+-------+--- --+ !Left common femoral !Patent !Normal phasicity; spontaneous; normal ! ! ! !augmentation; compressible ! + ---------+-------+--- --+ !Left saphenofemoral junction !Patent !Compressible ! + ---------+-------+--- --+ !Left profunda femoral !Patent !Normal phasicity; spontaneous; normal ! ! ! !augmentation ! + ---------+-------+--- --+ !L femoral proximal !Patent !Compressible ! + ---------+-------+--- --+ !L femoral mid !Patent !Normal phasicity; spontaneous; normal ! ! ! !augmentation; compressible ! + ---------+-------+--- --+ !L femoral distal !Patent !Compressible ! + ---------+-------+--- --+ !Left popliteal !Patent !Normal phasicity; spontaneous; normal ! ! ! !augmentation; compressible ! + ---------+-------+--- --+ !Left gastrocnemius !Patent !Compressible ! + ---------+-------+--- --+ !Left posterior tibial !Patent !Compressible ! + ---------+-------+--- --+ !Left peroneal !Patent !Compressible ! + ---------+-------+--- --+ !Left soleal !Patent !Compressible ! + ---------+-------+--- --+ !Left greater saphenous !Patent !Compressible ! + ---------+-------+--- --+ Electronically signed by: Krysta Arora [id number] Final Dictated: 07/13/2018 8:45 am Dictating Physician: KRYSTA ARORA Signed Date and Time: 07/13/2018 8:45 am Signed by: KRYSTA ARORA Normal [facility] Basic Metabolic Panelon 06-29 Calcium mass conc 7.8 mg/dL Low 8.4-10.[address] [facility] Comment on above: Performed By: #### H EMDF, PT, BMP3M, PHOS3, MG3, CK3 #### [employer] [facility] [address] [place] [address] #### VD25H #### [employer] [address] [facility] [place] [address] Anion gap molar conc 4 Normal [facility] Comment on above: Performed By: #### H EMDF, PT, BMP3M, PHOS3, MG3, CK3 #### [facility] [facility] [address] [place] [address] #### VD25H #### [facility] [employer] [address] [place] [address] CO2 molar conc 26 mmol/L Normal 22-30 [facility] Comment on above: Performed By: #### H EMDF, PT, BMP3M, PHOS3, MG3, CK3 #### [facility] [address] [place] [address] #### VD25H #### [facility] [address] [place] [address] Glucose mass conc 118 mg/dL High 70-[address] [facility] Comment on above: Performed By: #### H EMDF, PT, BMP3M, PHOS3, MG3, CK3 #### [address] #### VD25H #### [facility] [address] [place] [address] Urea nitrogen mass conc 19 mg/dL Normal 7-20 [facility] Comment on above: Performed By: #### H EMDF, PT, BMP3M, PHOS3, MG3, CK3 #### [address] #### VD25H #### [facility] [address] [place] [address] Creatinine mass conc 0.74 mg/dL Normal 0.52-1.25 [facility] Comment on above: Performed By: #### H EMDF, PT, BMP3M, PHOS3, MG3, CK3 #### [address] [address] [place], [place] #### VD25H #### [facility] [address] [place] [address] GFR/1.73 sq M predicted among blacks MDRD vol rate/area (S/P/Bld) mL/min/{1.73_m2} Normal >60 [facility] Comment on above: Performed By: #### H EMDF, PT, BMP3M, PHOS3, MG3, CK3 #### [address] #### VD25H #### [facility] [address] [place] [address] GFR/1.73 sq M predicted among non-blacks MDRD vol rate/area (S/P/Bld) mL/min/{1.73_m2} Normal >60 [facility] Comment on above: Result Comment: Sour ce- MDRD equation with creatinine calibration to IDMS(NKDEP) eGFR not recommended for drug dose adjustment Performed By: #### H EMDF, PT, BMP3M, PHOS3, MG3, CK3 #### [address] [address] #### VD25H #### [facility] [address] [place] [address] Chloride molar conc 112 mmol/L High 98-107 [facility] Comment on above: Performed By: #### H EMDF, PT, BMP3M, PHOS3, MG3, CK3 #### [address] #### VD25H #### [facility] [address] [place] [address] Potassium molar conc 3.8 mmol/L Normal 3.5-5.1 [facility] Comment on above: Performed By: #### H EMDF, PT, BMP3M, PHOS3, MG3, CK3 #### [address] #### VD25H #### [facility] [address] [place] [address] Sodium molar conc 141 mmol/L Normal 135-145 [facility] Comment on above: Performed By: #### H EMDF, PT, BMP3M, PHOS3, MG3, CK3 #### [address] #### VD25H #### [facility] [address] [place] [address] CR Chest 1 View Frontalon CR Chest 1 View Frontal Patient Name: KATHYA FELDER Diagnostic Radiology Exam Date/Time 07/11/2018 06:36:48 EDT Exam CR Chest 1 View Frontal Ordering Physician MD MOISÉS, JOSHUA Accession Number [id number] CPT4 Codes 03113 () Reason For Exam dyspnea Report EXAM TYPE: RADIOLOGIC EXAMINATION, CHEST, SINGLE VIEW FRONTAL (CXR SINGLE VIEW) EXAM DATE AND TIME: 07/11/2018 6:36 AM EDT INDICATION: Respiratory distress COMPARISON: 07/10/2018 TECHNIQUE: A single frontal view of the thorax was obtained and reviewed. Special views: None. IMPRESSION: 1. Lines/Tubes/Devices/H ardware: Stable projection of the endotracheal tube, right subclavian catheter, NG tube with tip off the film below level of the diaphragm.. Please confirm position/function of devices/catheters clinically. 2. Lungs: Poor depth of inspiration. Lower lobe volume loss/consolidation. Similar findings seen previously. Residual pneumonia possible. 3. Pleura: Effusions possible. No significant pneumothorax. 4. Heart and mediastinum: Limited due to adjacent volume loss. Patient rotated. 5. Upper abdomen: No acute process seen. Report Dictated on Final Dictated: 07/11/2018 7:05 am Dictating Physician: MD MADERA JOHN Signed Date and Time: 07/11/2018 7:07 am Signed by: MD MADERA JOHN Transcribed Date and Time: 07/11/2018 7:05 Normal [facility] Hemogram w/ Autodiffon 07-11 Abs Baso Cnt 0.0 10*3/uL Normal 0.0-0.2 [facility] Comment on above: Performed By: #### H EMDF, PT, BMP3M, PHOS3, MG3, CK3 #### [facility] [address] [place] [address] #### VD25H #### [facility] [address] [place] [address] Abs Neutrophile Cnt 8.8 10*3/uL High 1.8-7.0 [facility] Comment on above: Performed By: #### H EMDF, PT, BMP3M, PHOS3, MG3, CK3 #### [facility] [address] [place], [place] #### VD25H #### [facility] [address] [place] [address] Basophils/100 WBC (Bld) 0.4 % Normal 0.0-2.0 S [facility] Comment on above: Performed By: #### H EMDF, PT, BMP3M, PHOS3, MG3, CK3 #### [facility] [address] [place], [place] #### VD25H #### [facility] [address] [place] [address] Eosinophils #/vol (Bld) 0.0 10*3/uL Normal 0.0-0.5 [facility] Comment on above: Performed By: #### H EMDF, PT, BMP3M, PHOS3, MG3, CK3 #### [address] #### VD25H #### [facility] [address] [place] [address] Eosinophils/100 WBC (Bld) 0.4 % Low 1.0-6.0 [facility] Comment on above: Performed By: #### H EMDF, PT, BMP3M, PHOS3, MG3, CK3 #### [address] [place], [place] #### VD25H #### [facility] [address] [place] [address] Erythrocyte distribution width Ratio (RBC) 13.7 % Normal 11.5-14.5 [facility] Comment on above: Performed By: #### H EMDF, PT, BMP3M, PHOS3, MG3, CK3 #### [address] #### VD25H #### [facility] [address] [place] [address] Granulocytes/100 WBC (Bld) 80.6 % High 40.0-80.0 [facility] Comment on above: Performed By: #### H EMDF, PT, BMP3M, PHOS3, MG3, CK3 #### [address] [place], [place] #### VD25H #### [facility] [address] [place] [address] Hematocrit Volume Fraction (Bld) 32.8 % Low 40.0-52.0 [facility] Comment on above: Performed By: #### H EMDF, PT, BMP3M, PHOS3, MG3, CK3 #### [address] [place], [place] #### VD25H #### [facility] [address] [place] [address] Hemoglobin mass conc (Bld) 11.4 g/dL Low 13.0-18.0 [facility] Comment on above: Performed By: #### H EMDF, PT, BMP3M, PHOS3, MG3, CK3 #### [address] #### VD25H #### [place] [address] [place] [address] Lymphocytes #/vol (Bld) 1.3 10*3/uL Normal 1.0-4.3 [facility] Comment on above: Performed By: #### H EMDF, PT, BMP3M, PHOS3, MG3, CK3 #### [address] #### VD25H #### [facility] [address] [place] [address] Lymphocytes/100 WBC (Bld) 11.5 % Low 20.0-40.0 [facility] Comment on above: Performed By: #### H EMDF, PT, BMP3M, PHOS3, MG3, CK3 #### [address] #### VD25H #### [facility] [address] [place] [address] MCH Entitic mass (RBC) 30.2 pg Normal 26.0-34.0 [facility] Comment on above: Performed By: #### H EMDF, PT, BMP3M, PHOS3, MG3, CK3 #### [address] #### VD25H #### [facility] [address] [place] [address] MCHC mass conc (RBC) 34.7 % Normal 32.0-36.0 [facility] Comment on above: Performed By: #### H EMDF, PT, BMP3M, PHOS3, MG3, CK3 #### [address] #### VD25H #### [facility] [address] [place] [address] MCV Entitic volume (RBC) 86.9 fL Normal 80.0-98.0 [facility] Comment on above: Performed By: #### H EMDF, PT, BMP3M, PHOS3, MG3, CK3 #### [address] #### VD25H #### [facility] [address] [place] [address] Monocytes #/vol (Bld) 0.8 10*3/uL Normal 0.0-0.8 [facility] Comment on above: Performed By: #### H EMDF, PT, BMP3M, PHOS3, MG3, CK3 #### [address] #### VD25H #### [facility] [address] [place] [address] Monocytes/100 WBC (Bld) 7.1 % Normal 2.0-10.0 [facility] Comment on above: Performed By: #### H EMDF, PT, BMP3M, PHOS3, MG3, CK3 #### [address] #### VD25H #### [facility] [address] [place] [address] Platelet mean volume Entitic volume (Bld) 8.8 fL Normal 7.4-10.4 [facility] Comment on above: Performed By: #### H EMDF, PT, BMP3M, PHOS3, MG3, CK3 #### [address] [place], [place] #### VD25H #### [facility] [address] [place] [address] Platelets #/vol (Bld) 158 10*3/uL Normal 140-440 [facility] Comment on above: Performed By: #### H EMDF, PT, BMP3M, PHOS3, MG3, CK3 #### [address] #### VD25H #### [facility] [address] [place] [address] RBC #/vol (Bld) 3.78 10*6/uL Low 4.40-5.[address] [facility] Comment on above: Performed By: #### H EMDF, PT, BMP3M, PHOS3, MG3, CK3 #### [address] #### VD25H #### [facility] [address] [place] [address] WBC #/vol (Bld) 10.9 10*3/uL High 3.6-10.[address] [facility] Comment on above: Performed By: #### H EMDF, PT, BMP3M, PHOS3, MG3, CK3 #### [address] [place], [place] #### VD25H #### [facility] [address] [place] [address] Magnesiumon 07-11-2018 Magnesium mass conc 2.3 mg/dL Normal 1.6-2.3 [facility] Comment on above: Performed By: #### H EMDF, PT, BMP3M, PHOS3, MG3, CK3 #### [address] #### VD25H #### [facility] [address] [place] [address] Phosphoruson 07-11-2018 Phosphate mass conc 2.8 mg/dL Normal 2.5-4.5 [facility] Comment on above: Performed By: #### H EMDF, PT, BMP3M, PHOS3, MG3, CK3 #### [facility] [address] [place] #### VD25H #### [facility] [address] [place] [address] Basic Metabolic Panelon 06-29 Calcium mass conc 8.9 mg/dL Normal 8.4-10.4 [facility] Comment on above: Performed By: #### H EMDF, PT, BMP3M, PHOS3, MG3, CK3 #### [address] [address] [place], [place] #### VD25H #### [facility] [address] [place] [address] Glucose mass conc 133 mg/dL High 70-100 [facility] Comment on above: Performed By: #### H EMDF, PT, BMP3M, PHOS3, MG3, CK3 #### [address] [address] [place], [place] #### VD25H #### [facility] [address] [place] [address] Anion gap molar conc 4 Normal [facility] Comment on above: Performed By: #### H EMDF, PT, BMP3M, PHOS3, MG3, CK3 #### [facility] [address] [place], [place] #### VD25H #### [facility] [address] [place] [address] CO2 molar conc 27 mmol/L Normal 22-30 [facility] Comment on above: Performed By: #### H EMDF, PT, BMP3M, PHOS3, MG3, CK3 #### [address] [address] [place], [place] #### VD25H #### [facility] [address] [place] [address] Creatinine mass conc 0.69 mg/dL Normal 0.52-1.25 [facility] Comment on above: Performed By: #### H EMDF, PT, BMP3M, PHOS3, MG3, CK3 #### [facility] [address] [place], [place] #### VD25H #### [facility] [address] [place] [address] GFR/1.73 sq M predicted among blacks MDRD vol rate/area (S/P/Bld) mL/min/{1.73_m2} Normal >60 [facility] Comment on above: Performed By: #### H EMDF, PT, BMP3M, PHOS3, MG3, CK3 #### [address] #### VD25H #### [facility] [address] [place] [address] GFR/1.73 sq M predicted among non-blacks MDRD vol rate/area (S/P/Bld) mL/min/{1.73_m2} Normal >[address] [facility] Comment on above: Result Comment: Sour ce- MDRD equation with creatinine calibration to IDMS(NKDEP) eGFR not recommended for drug dose adjustment Performed By: #### H EMDF, PT, BMP3M, PHOS3, MG3, CK3 #### [address] #### VD25H #### [place] [address] [place] [address] Urea nitrogen mass conc 16 mg/dL Normal 7-20 [facility] Comment on above: Performed By: #### H EMDF, PT, BMP3M, PHOS3, MG3, CK3 #### [address] #### VD25H #### [facility] [address] [address] Potassium molar conc 4.1 mmol/L Normal 3.5-5.1 [facility] Comment on above: Performed By: #### H EMDF, PT, BMP3M, PHOS3, MG3, CK3 #### [address] [place], [place] #### VD25H #### [facility] [address] [place] [address] Sodium molar conc 142 mmol/L Normal 135-145 [facility] Comment on above: Performed By: #### H EMDF, PT, BMP3M, PHOS3, MG3, CK3 #### [address] [place], [place] #### VD25H #### [facility] [address] [place] [address] Chloride molar conc 110 mmol/L High 98-107 [facility] Comment on above: Performed By: #### H EMDF, PT, BMP3M, PHOS3, MG3, CK3 #### [address] [address] [place], [place] #### VD25H #### [facility] [address] [place] [address] CKon 07-10-2018 CK enzyme act/vol 1291 U/L High 30-170 [facility] Comment on above: Performed By: #### H EMDF, PT, BMP3M, PHOS3, MG3, CK3 #### [address] [place], [place] #### VD25H #### [facility] [address] [place] [address] CK enzyme act/vol 1382 U/L High 30-170 [facility] Comment on above: Performed By: #### H EMDF, PT, BMP3M, PHOS3, MG3, CK3 #### [address] [place], [place] #### VD25H #### [facility] [address] [place] [address] CR Chest 1 View Frontalon CR Chest 1 View Frontal Patient Name: KATHYA FELDER Diagnostic Radiology Exam Date/Time 07/10/2018 06:38:06 EDT Exam CR Chest 1 View Frontal Ordering Physician MD NATE, [facility] Accession Number [id number] CPT4 Codes 98481 () Reason For Exam dyspnea Report EXAMINATION: Portable Chest, 0617 hours 07/10/2018. COMPARISON: 07/09/2018. REASON FOR STUDY: Dyspnea. FINDINGS: The cardiac silhouette is normal in size. No mediastinal abnormality is observed. The lungs are diminished in volume. An ill-defined opacity is present at the left base with concomitant blunting of the costophrenic angle. Curvilinear opacities are present in the right base. Osseous structures appear intact. Support Devices: Endotracheal tube tube projects about 4 cm above the alma. Orogastric tube courses into the abdomen. Right subclavian line projects over the azygos arch, likely in the superior vena cava. CONCLUSION(S): 1. Probable left pleural effusion and basilar atelectasis. 2. Right basilar subsegmental atelectasis. 3. Stable position of support devices as above. Report Dictated on Final Dictated: 07/10/2018 8:57 am Dictating Physician: MD PIZANO B NELSON Signed Date and Time: 07/10/2018 9:01 am Signed by: MD PIZANO B NELSON Transcribed Date and Time: 07/10/2018 8:57 Normal [facility] Hemogram w/ Autodiffon 07-10 Abs Baso Cnt 0.0 10*3/uL Normal 0.0-0.2 [facility] Comment on above: Performed By: #### H EMDF, PT, BMP3M, PHOS3, MG3, CK3 #### [facility] [address] [place] [address] #### VD25H #### [facility] [address] [place] [address] Abs Neutrophile Cnt 12.2 10*3/uL High 1.8-7.0 [facility] Comment on above: Performed By: #### H EMDF, PT, BMP3M, PHOS3, MG3, CK3 #### [facility] [address] [place], [place] #### VD25H #### [facility] [address] [place] [address] Basophils/100 WBC (Bld) 0.3 % Normal 0.0-2.0 [facility] Comment on above: Performed By: #### H EMDF, PT, BMP3M, PHOS3, MG3, CK3 #### [facility] [address] [place], [place] #### VD25H #### [facility] [address] [place] [address] Eosinophils #/vol (Bld) 0.0 10*3/uL Normal 0.0-0.5 [facility] Comment on above: Performed By: #### H EMDF, PT, BMP3M, PHOS3, MG3, CK3 #### [address] #### VD25H #### [facility] [address] [place] [address] Eosinophils/100 WBC (Bld) 0.0 % Low 1.0-6.0 [facility] Comment on above: Performed By: #### H EMDF, PT, BMP3M, PHOS3, MG3, CK3 #### [address] #### VD25H #### [facility] [address] [place] [address] Erythrocyte distribution width Ratio (RBC) 13.9 % Normal 11.5-14.5 [facility] Comment on above: Performed By: #### H EMDF, PT, BMP3M, PHOS3, MG3, CK3 #### [address] #### VD25H #### [facility] [address] [place] [address] Granulocytes/100 WBC (Bld) 89.5 % High 40.0-80.0 [facility] Comment on above: Performed By: #### H EMDF, PT, BMP3M, PHOS3, MG3, CK3 #### [address] [place], [place] #### VD25H #### [facility] [address] [place] [address] Hematocrit Volume Fraction (Bld) 36.0 % Low 40.0-52.0 [facility] Comment on above: Performed By: #### H EMDF, PT, BMP3M, PHOS3, MG3, CK3 #### [address] [place], [place] #### VD25H #### [facility] [address] [place] [address] Hemoglobin mass conc (Bld) 12.3 g/dL Low 13.0-18.0 [facility] Comment on above: Performed By: #### H EMDF, PT, BMP3M, PHOS3, MG3, CK3 #### [address] #### VD25H #### [facility] [address] [place] [address] Lymphocytes #/vol (Bld) 0.6 10*3/uL Low 1.0-4.3 [facility] Comment on above: Performed By: #### H EMDF, PT, BMP3M, PHOS3, MG3, CK3 #### [address] #### VD25H #### [facility] [address] [place] [address] Lymphocytes/100 WBC (Bld) 4.3 % Low 20.0-40.0 [facility] Comment on above: Performed By: #### H EMDF, PT, BMP3M, PHOS3, MG3, CK3 #### [address] #### VD25H #### [facility] [address] [place] [address] MCH Entitic mass (RBC) 29.8 pg Normal 26.0-34.0 [facility] Comment on above: Performed By: #### H EMDF, PT, BMP3M, PHOS3, MG3, CK3 #### [address] #### VD25H #### [facility] [address] [place] [address] MCHC mass conc (RBC) 34.2 % Normal 32.0-36.0 [facility] Comment on above: Performed By: #### H EMDF, PT, BMP3M, PHOS3, MG3, CK3 #### [address] #### VD25H #### [facility] [address] [place] [address] MCV Entitic volume (RBC) 87.1 fL Normal 80.0-98.0 [facility] Comment on above: Performed By: #### H EMDF, PT, BMP3M, PHOS3, MG3, CK3 #### [address] #### VD25H #### [facility] [address] [place] [address] Monocytes #/vol (Bld) 0.8 10*3/uL Normal 0.0-0.8 [facility] Comment on above: Performed By: #### H EMDF, PT, BMP3M, PHOS3, MG3, CK3 #### [address] #### VD25H #### [facility] [address] [place] [address] Monocytes/100 WBC (Bld) 5.9 % Normal 2.0-10.0 S [facility] Comment on above: Performed By: #### H EMDF, PT, BMP3M, PHOS3, MG3, CK3 #### [address] #### VD25H #### [facility] [address] [place] [address] Platelet mean volume Entitic volume (Bld) 8.4 fL Normal 7.4-10.4 [facility] Comment on above: Performed By: #### H EMDF, PT, BMP3M, PHOS3, MG3, CK3 #### [address] [address] [address] [place] #### VD25H #### [facility] [address] [place] [address] Platelets #/vol (Bld) 155 10*3/uL Normal 140-440 [facility] Comment on above: Performed By: #### H EMDF, PT, BMP3M, PHOS3, MG3, CK3 #### [address] #### VD25H #### [facility] [address] [place] [address] RBC #/vol (Bld) 4.13 10*6/uL Low 4.40-5.[address] [facility] Comment on above: Performed By: #### H EMDF, PT, BMP3M, PHOS3, MG3, CK3 #### [address] #### VD25H #### [facility] [address] [place] [address] WBC #/vol (Bld) 13.6 10*3/uL High 3.6-10.[address] [facility] Comment on above: Performed By: #### H EMDF, PT, BMP3M, PHOS3, MG3, CK3 #### [address] [address] [place] #### VD25H #### [facility] [address] [place] [address] Magnesiumon 07-10-2018 Magnesium mass conc 2.3 mg/dL Normal 1.6-2.3 [facility] Comment on above: Performed By: #### H EMDF, PT, BMP3M, PHOS3, MG3, CK3 #### [address] #### VD25H #### [facility] [address] [place] [address] Phosphoruson 07-10-2018 Phosphate mass conc 2.7 mg/dL Normal 2.5-4.5 [facility] Comment on above: Performed By: #### H EMDF, PT, BMP3M, PHOS3, MG3, CK3 #### [address] [address] [place] #### VD25H #### [facility] [address] [place] [address] Add on test from HISon 07-09 Add on test from HIS Accepted Normal [facility] Comment on above: Result Comment: Spec imen available & acceptable for analysis. Performed By: #### A DDON #### [address] [address] [place] Arterial Blood Gaseson 07-09 CO2 molar conc 24.5 mmol/L Normal 23.0-27.0 [facility] Comment on above: Performed By: #### H EMDF, PT, BMP3M, PHOS3, MG3, CK3 #### [address] #### VD25H #### [facility] [address] [place] [address] HCO3 molar conc (Bld) 23.2 mmol/L Normal 21.0-25.0 [facility] Comment on above: Performed By: #### H EMDF, PT, BMP3M, PHOS3, MG3, CK3 #### [address] [address] [place] #### VD25H #### [facility] [address] [place] [address] Hemoglobin mass conc (Bld) 15.7 g/dL Normal ScreenOnly [facility] Comment on above: Performed By: #### H EMDF, PT, BMP3M, PHOS3, MG3, CK3 #### [address] #### VD25H #### [facility] [address] [place] [address] Oxygen ppres (Bld) 397.4 mm[Hg] High 80.0-100.0 [facility] Comment on above: Performed By: #### H EMDF, PT, BMP3M, PHOS3, MG3, CK3 #### [facility] [address] [place] #### VD25H #### [facility] [address] [place] [address] Oxygen saturation in Blood 99.2 % Normal 95.0-100.0 [facility] Comment on above: Performed By: #### H EMDF, PT, BMP3M, PHOS3, MG3, CK3 #### [address] #### VD25H #### [facility] [address] [place] [address] pCO2 42.3 mm[Hg] Normal 35.0-45.0 [facility] Comment on above: Performed By: #### H EMDF, PT, BMP3M, PHOS3, MG3, CK3 #### [address] #### VD25H #### [facility] [address] [place] [address] pH (Bld) 7.357 Normal 7.350-7.450 [facility] Comment on above: Performed By: #### H EMDF, PT, BMP3M, PHOS3, MG3, CK3 #### [address] [place] #### VD25H #### [facility] [address] [place] [address] Std Base Excess -2.3 mmol/L Normal -3.0-3.0 [facility] Comment on above: Performed By: #### H EMDF, PT, BMP3M, PHOS3, MG3, CK3 #### [address] #### VD25H #### [facility] [address] [place] [address] FIO2 100% Normal [facility] Comment on above: Performed By: #### H EMDF, PT, BMP3M, PHOS3, MG3, CK3 #### [address] [place] #### VD25H #### [facility] [address] [place] [address] Basic Metabolic Panelon 06-29 Calcium mass conc 8.6 mg/dL Normal 8.4-10.4 [facility] Comment on above: Performed By: #### H EMDF, PT, BMP3M, PHOS3, MG3, CK3 #### [address] [address] [place], [place] #### VD25H #### [facility] [address] [place] [address] Glucose mass conc 150 mg/dL High 70-100 [facility] Comment on above: Performed By: #### H EMDF, PT, BMP3M, PHOS3, MG3, CK3 #### [address] [address] [place], [place] #### VD25H #### [facility] [address] [place] [address] Anion gap molar conc 7 Normal [facility] Comment on above: Performed By: #### H EMDF, PT, BMP3M, PHOS3, MG3, CK3 #### [address] [address] [place], [place] #### VD25H #### [facility] [address] [place] [address] CO2 molar conc 26 mmol/L Normal 22-30 [facility] Comment on above: Performed By: #### H EMDF, PT, BMP3M, PHOS3, MG3, CK3 #### [address], [place] #### VD25H #### [facility] [address] [place] [address] Creatinine mass conc 0.80 mg/dL Normal 0.52-1.25 [facility] Comment on above: Performed By: #### H EMDF, PT, BMP3M, PHOS3, MG3, CK3 #### [address] [address] #### VD25H #### [facility] [address] [place] [address] GFR/1.73 sq M predicted among blacks MDRD vol rate/area (S/P/Bld) mL/min/{1.73_m2} Normal >60 [facility] Comment on above: Performed By: #### H EMDF, PT, BMP3M, PHOS3, MG3, CK3 #### [address] #### VD25H #### [address] [place] [address] GFR/1.73 sq M predicted among non-blacks MDRD vol rate/area (S/P/Bld) mL/min/{1.73_m2} Normal >60 [facility] Comment on above: Result Comment: Sour ce- MDRD equation with creatinine calibration to IDMS(NKDEP) eGFR not recommended for drug dose adjustment Performed By: #### H EMDF, PT, BMP3M, PHOS3, MG3, CK3 #### [address] #### VD25H #### [facility] [address] [place] [address] Urea nitrogen mass conc 16 mg/dL Normal 7-20 S [facility] Comment on above: Performed By: #### H EMDF, PT, BMP3M, PHOS3, MG3, CK3 #### [address] #### VD25H #### [facility] [address] [place] [address] Chloride molar conc 110 mmol/L High 98-107 [facility] Comment on above: Performed By: #### H EMDF, PT, BMP3M, PHOS3, MG3, CK3 #### [address], [place] #### VD25H #### [facility] [address] [place] [address] Potassium molar conc 4.7 mmol/L Normal 3.5-5.1 [facility] Comment on above: Performed By: #### H EMDF, PT, BMP3M, PHOS3, MG3, CK3 #### [address] [address] [place] #### VD25H #### [facility] [address] [place] [address] Sodium molar conc 143 mmol/L Normal 135-145 [facility] Comment on above: Performed By: #### H EMDF, PT, BMP3M, PHOS3, MG3, CK3 #### [address] [place] #### VD25H #### [address] [place] [place] [address] CKon 07-09-2018 CK enzyme act/vol 1451 U/L High 30-170 [facility] Comment on above: Performed By: #### H EMDF, PT, BMP3M, PHOS3, MG3, CK3 #### [address] [place] #### VD25H #### [facility] [address] [place] [address] CK enzyme act/vol 3832 U/L High 30-170 [facility] Comment on above: Performed By: #### H EMDF, PT, BMP3M, PHOS3, MG3, CK3 #### [address] [place] #### VD25H #### [address] [place] [place] [address] CR Chest 1 View Frontalon CR Chest 1 View Frontal Patient Name: KATHYA FELDER Diagnostic Radiology Exam Date/Time 07/09/2018 06:21:56 EDT Exam CR Chest 1 View Frontal Ordering Physician MD NATE, [facility] Accession Number [id number] CPT4 Codes 71795 () Reason For Exam dyspnea Report CHEST PORTABLE: Indication: Shortness of breath Views: Portable frontal Comparison: 07/09/2018 at 2:46 Time: 07/09/2018 at 5:53 FINDINGS: The endotracheal tube and enteric tube are stable in positioning. Cardiac monitoring wires and leads are present. The trachea is midline. The cardiomediastinal silhouette is within normal limits. Left lower lung opacities, similar to prior imaging. The lung volumes are low. IMPRESSION: 1. Endotracheal tube and enteric tube. 2. Stable left lower lung opacities possibly representing combination of infiltrate and/or atelectasis. Report Dictated on Final Dictated: 07/09/2018 6:39 am Dictating Physician: MD CHARLES JENNIFER R Signed Date and Time: 07/09/2018 6:41 am Signed by: MD CHARLES JENNIFER R Transcribed Date and Time: 07/09/2018 6:39 Normal [facility] CR Chest Portableon 07-10-19 19 CR Chest Portable Patient Name: KATHYA HOOPER Diagnostic Radiology Exam Date/Time 07/09/2018 11:34:09 EDT Exam CR Chest Portable Ordering Physician [id number] GUNN Accession Number [id number] CPT4 Codes 34934 () Reason For Exam Central line placement Report EXAM TYPE: RADIOLOGIC EXAMINATION, CHEST, SINGLE VIEW FRONTAL (CXR SINGLE VIEW) EXAM DATE AND TIME: 07/09/2018 11:34 AM EDT INDICATION: Central line placement COMPARISON: 07/09/2018 TECHNIQUE: A single frontal view of the thorax was obtained and reviewed. Special views: None. IMPRESSION: 1. Lines/Tubes/Devices/H ardware: New right subclavian catheter with tip projecting over SVC. Projection of endotracheal tube and NG tube stable.. Please confirm position/function of devices/catheters clinically. 2. Lungs: Stable infiltrates with patchy left lower lobe/perihilar consolidation. Elevated left hemidiaphragm. 3. Pleura: Left effusion possible. No significant pneumothorax. 4. Heart and mediastinum: Limited. Adjacent volume loss. 5. Upper abdomen: No acute process seen. Report Dictated on Final Dictated: 07/09/2018 1:01 pm Dictating Physician: MD MADERA JOHN Signed Date and Time: 07/09/2018 1:02 pm Signed by: MD MADERA JOHN Transcribed Date and Time: 07/09/2018 1:01 [facility] CR Chest Portable Patient Name: KATHYA HOOPER Diagnostic Radiology Exam Date/Time 07/09/2018 03:05:20 EDT Exam CR Chest Portable Ordering Physician MD NATE, NICOLE HOLLEY Accession Number [id number] CPT4 Codes 09139 () Reason For Exam intubation Report CHEST PORTABLE: Indication: Inpatient; intubation Views: Portable frontal Comparison: 07/08/2018 at 22:16 Time: 07/09/2018 at 2:46 FINDINGS: Interval intubation with endotracheal tube approximately 4.2 cm above the level of the alma. An enteric tube has been placed with distal tip below the hemidiaphragm but excluded from [id number]. Cardiac monitoring wires and leads are present. The lungs are symmetrically inflated. The lung volumes are low. Left lower lung patchy opacities are present. IMPRESSION: 1. Endotracheal tube and enteric tube, as above. 2. Interval increase in left lower lung opacities possibly representing evolving infiltrate. Report Dictated on Final Dictated: 07/09/2018 3:10 am Dictating Physician: MD CHARLES JENNIFER R Signed Date and Time: 07/09/2018 3:12 am Signed by: MD CHARLES JENNIFER R Transcribed Date and Time: 07/09/2018 3:10 [facility] CR Chest Portable Patient Name: KATHYA HOOPER Diagnostic Radiology Exam Date/Time 07/08/2018 22:31:57 EDT Exam CR Chest Portable Ordering Physician MD NATE, NICOLE HOLLEY Accession Number [id number] CPT4 Codes 36894 () Reason For Exam cough Report CHEST PORTABLE CLINICAL INDICATION: cough TECHNIQUE: Single, portable chest x-ray. COMPARISON: Earlier on same date. FINDINGS: Patient rotated to the left. Cardiac and mediastinal silhouette within normal limits. Lungs hypoinflated, and show patchy, partially confluent opacities projected over retrocardiac region of left lower lung more conspicuous or mildly increased from comparison. No significant vascular congestion. No other focal consolidation or apparent pneumothorax. Bony thorax grossly unremarkable. IMPRESSION: 1. Hypoinflation, and findings which may represent left basilar atelectasis versus mild or developing infiltrate, mildly increased in the interval. Follow-up suggested as warranted. Report Dictated on Workstation: YANNA Final Dictated: 07/08/2018 11:23 pm Dictating Physician: MD ESPOSITO WENDELL Signed Date and Time: 07/08/2018 11:34 pm Signed by: MD ESPOSITO WENDELL Transcribed Date and Time: 07/08/2018 11:23 Normal [facility] CTA Head/Neck w/ + w/o contr birgit 07-09-2018 CTA Head/Neck w/ + w/o contrast Patient Name: KAHTYA HOOPER CT Exam Date/Time 07/09/2018 04:42:10 EDT Exam CTA Head/Neck w/ + w/o contrast Ordering Physician MD OREILLY ALEKSANDAR Accession Number [id number] CPT4 Codes Q9967 (CT ISOVUE 370MG/[id number]), 97657 (), 95602 () Reason For Exam CERVICAL SPINE FRACTURE Report CLINICAL INFORMATION: C-spine fracture after trauma. Vascular injury suspected. CTA HEAD: After 75 ml Isovue IV contrast, 0.3 mm axial cuts were obtained through the brain. Coronal and sagittal reconstructions are reviewed. In addition, 3D images of the [place] were constructed by me and reviewed simultaneously on the separate [employer] Workstation. The examination is compared to a previous unenhanced study dated 07/08/2018. FINDINGS: The ventricles are within normal limits in respect to their size and configuration. There is no evidence of mass or mass-effect. There are no abnormal intra- or extra-axial fluid collections. No hemorrhage is identified. There is no CT evidence of acute infarct. The bone windows demonstrate no evidence of skull fracture. Mild inflammatory changes are noted in the bilateral maxillary and ethmoid sinuses. The mastoid air cells are clear. Cerumen and/or debris is noted in the left external auditory canal. After IV contrast, there are no regions of abnormal enhancement. 3D images demonstrate forward flow in both distal vertebral arteries and within the basilar artery. The distal left vertebral artery is mildly dominant. The terminal branches of the middle cerebral arteries are symmetric bilaterally. The anterior vessels are normal. There is no evidence of aneurysmal dilatation, cut-off, or significant stenosis. No arteriovenous malformations are seen. IMPRESSION: 1. No evidence of aneurysm or AVM. 2. There are no intracranial cut-offs to suggest thromboembolism. 3. No intracranial hemorrhage. 4. Sinusitis. Cerumen and/or debris is noted in the left external auditory canal. Please correlate with direct visualization. CTA NECK: After 75 ml Isovue IV contrast, 0.3 mm axial cuts were obtained through the neck. Coronal and sagittal reconstructed images are reviewed. In addition, 3D images of the carotids were constructed by me and reviewed simultaneously on the separate [employer] Workstation. The examination is compared to a previous unenhanced study dated 07/08/2018. FINDINGS: There are extensive flowing osteophytes along the anterior margin of the cervical vertebral bodies. An acute distracted fracture is noted through the C3-4 level. This courses through the very superior endplate of the C4 vertebral body. A separate slightly comminuted fracture is noted through the body of T1. There is a significant intimal injury involving both vertebral arteries at the level of the C3-4 distracted fracture. These results in complete or near-complete occlusion of both vertebral arteries for a very short segment. This is slightly more pronounced on the left than that seen on the right. The more distal vertebral arteries bilaterally remain widely patent. The right and left common carotid artery bifurcations are normal without evidence of a flow-limiting stenosis (< 10% via NASCET criteria). There is a mild beaded pattern involving the proximal internal carotid arteries bilaterally. This is slightly more pronounced on the left than that seen on the right. The origins of the great vessels are within normal limits. The patient is intubated. The endotracheal tube terminates 2 cm above the alma. An OG tube is in place. There are no significant cervical chain nodes. There is no abnormal mass. The salivary glands are symmetric bilaterally without abnormality. There is no evidence of abscess. There is no airway compromise. The lung apices are normal. IMPRESSION: 1. Extensive flowing anterior osteophytes consistent with DISH (diffuse idiopathic skeletal hyperostosis). 2. Acute displacement cervical spine fracture at the C3-4 level. This courses through the very superior endplate of C4. A comminuted fracture is noted through the anterior T1 vertebral body. 3. Acute intimal injury involving both vertebral arteries at the level of the C3-4 displacement fracture. This severe intimal injury results complete or near-complete short segment occlusion of flow. The more distal vertebral arteries remain patent. 4. The carotid bifurcations are widely patent. Incidental note is made of a mild beaded appearance involving the proximal internal carotid arteries. This may indicate an element of fibromuscular dysplasia (FMD). The above findings were discussed with Dr. Oreilly by attending radiologist Ricardo Madera on July 09, 2018 at 0735 hrs. Report Dictated on Workstation: [employer] Final Dictated: 07/09/2018 9:50 am Dictating Physician: MD JERNIGAN JEFFREY Signed Date and Time: 07/09/2018 10:26 am Signed by: MD JERNIGAN JEFFREY Transcribed Date and Time: 07/09/2018 9:50 Normal [facility] Hemogram w/ Autodiffon 07-09 Abs Baso Cnt 0.1 10*3/uL Normal 0.0-0.2 [facility] Comment on above: Performed By: #### H EMDF, PT, BMP3M, PHOS3, MG3, CK3 #### [facility] [address] [place] [address] #### VD25H #### [facility] [address] [place] [address] Abs Neutrophile Cnt 13.3 10*3/uL High 1.8-7.0 [facility] Comment on above: Performed By: #### H EMDF, PT, BMP3M, PHOS3, MG3, CK3 #### [facility] [address] [place] [address] #### VD25H #### [facility] [address] [place] [address] Basophils/100 WBC (Bld) 0.3 % Normal 0.0-2.0 S [facility] Comment on above: Performed By: #### H EMDF, PT, BMP3M, PHOS3, MG3, CK3 #### [address] #### VD25H #### [facility] [address] [place] [address] Eosinophils #/vol (Bld) 0.0 10*3/uL Normal 0.0-0.5 [facility] Comment on above: Performed By: #### H EMDF, PT, BMP3M, PHOS3, MG3, CK3 #### [address] #### VD25H #### [place] [address] [place] [address] Eosinophils/100 WBC (Bld) 0.0 % Low 1.0-6.0 [facility] Comment on above: Performed By: #### H EMDF, PT, BMP3M, PHOS3, MG3, CK3 #### [address] #### VD25H #### [place] [address] [place] [address] Erythrocyte distribution width Ratio (RBC) 13.7 % Normal 11.5-14.5 [facility] Comment on above: Performed By: #### H EMDF, PT, BMP3M, PHOS3, MG3, CK3 #### [address] #### VD25H #### [facility] [address] [place] [address] Granulocytes/100 WBC (Bld) 86.5 % High 40.0-80.0 [facility] Comment on above: Performed By: #### H EMDF, PT, BMP3M, PHOS3, MG3, CK3 #### [address] #### VD25H #### [facility] [address] [place] [address] Hematocrit Volume Fraction (Bld) 45.1 % Normal 40.0-52.0 [facility] Comment on above: Performed By: #### H EMDF, PT, BMP3M, PHOS3, MG3, CK3 #### [address] #### VD25H #### [facility] [address] [place] [address] Hemoglobin mass conc (Bld) 15.6 g/dL Normal 13.0-18.0 [facility] Comment on above: Performed By: #### H EMDF, PT, BMP3M, PHOS3, MG3, CK3 #### [address] #### VD25H #### [facility] [address] [place] [address] Lymphocytes #/vol (Bld) 0.8 10*3/uL Low 1.0-4.3 [facility] Comment on above: Performed By: #### H EMDF, PT, BMP3M, PHOS3, MG3, CK3 #### [address] #### VD25H #### [facility] [address] [place] [address] Lymphocytes/100 WBC (Bld) 5.5 % Low 20.0-40.0 [facility] Comment on above: Performed By: #### H EMDF, PT, BMP3M, PHOS3, MG3, CK3 #### [address] #### VD25H #### [facility] [address] [place] [address] MCH Entitic mass (RBC) 29.9 pg Normal 26.0-34.0 [facility] Comment on above: Performed By: #### H EMDF, PT, BMP3M, PHOS3, MG3, CK3 #### [address] [place], [place] #### VD25H #### [facility] [address] [place] [address] MCHC mass conc (RBC) 34.5 % Normal 32.0-36.0 [facility] Comment on above: Performed By: #### H EMDF, PT, BMP3M, PHOS3, MG3, CK3 #### [address] [place], [place] #### VD25H #### [facility] [address] [place] [address] MCV Entitic volume (RBC) 86.7 fL Normal 80.0-98.0 [facility] Comment on above: Performed By: #### H EMDF, PT, BMP3M, PHOS3, MG3, CK3 #### [address] #### VD25H #### [place] [address] [place] [address] Monocytes #/vol (Bld) 1.2 10*3/uL High 0.0-0.8 [facility] Comment on above: Performed By: #### H EMDF, PT, BMP3M, PHOS3, MG3, CK3 #### [address] #### [id number] #### [facility] [address] [place] [address] Monocytes/100 WBC (Bld) 7.7 % Normal 2.0-10.0 [facility] Comment on above: Performed By: #### H EMDF, PT, BMP3M, PHOS3, MG3, CK3 #### [address] #### VD25H #### [place] [address] [place] [address] Platelet mean volume Entitic volume (Bld) 8.1 fL Normal 7.4-10.4 [facility] Comment on above: Performed By: #### H EMDF, PT, BMP3M, PHOS3, MG3, CK3 #### [address] #### VD25H #### [facility] [address] [place] [address] Platelets #/vol (Bld) 197 10*3/uL Normal 140-440 [facility] Comment on above: Performed By: #### H EMDF, PT, BMP3M, PHOS3, MG3, CK3 #### [address] #### VD25H #### [address] [place] [address] RBC #/vol (Bld) 5.20 10*6/uL Normal 4.40-5.90 [facility] Comment on above: Performed By: #### H EMDF, PT, BMP3M, PHOS3, MG3, CK3 #### [address] #### VD25H #### [address] [place] [address] WBC #/vol (Bld) 15.4 10*3/uL High 3.6-10.7 [facility] Comment on above: Performed By: #### H EMDF, PT, BMP3M, PHOS3, MG3, CK3 #### [address] #### VD25H #### [address] [place] [address] MRI Spine Cervical w/o Contr birgit 07-09-2018 MRI Spine Cervical w/o Contrast Patient Name: KATHYA HOOPER MRI Exam Date/Time 07/09/2018 00:44:49 EDT Exam MRI Spine Cervical w/o Contrast Ordering Physician MD CHEYENNE, BRITTANY BERRY Accession Number [id number] CPT4 Codes 81091 () Reason For Exam CERVICAL SPINE FRACTURE Report EXAMINATION: MRI of the C-spine without contrast. COMPARISON: Correlation with CT scan of 07/08/2018. REASON FOR STUDY: Cervical spine fracture. TECHNIQUE: Axial and sagittal spin and gradient echo T1 and T2-weighted images were obtained. FINDINGS: T2 weighted images are severely degraded by motion artifacts. DISC SPACES: C2-C3: Normal. C3-C4: Broad-based disc-osteophytic bulge. Transverse fracture through the inferior margin of the disc. C4-C5: Normal. C5-C6: Completely obliterated. C6-C7, C7-T1: Normal. SPINAL CANAL AND NEURAL FORAMINA: Spinal Canal: C3-C4: Moderate narrowing. C4-C5, C5-C6: Mild narrowing. Neural foramina: Moderate bilateral narrowing of C4, C5 and C6. Spinal Cord: Ill-defined signal alteration at C3-C4. No appreciable impingement. VERTEBRAE: Diffuse anterior syndesmophytic fusion between C2 and T1. Fracture through the inferior margin of the C3-C4 disc space. Complex fracture at the anterior aspect of T1 with fracture lines extending to the superior and inferior endplates. There is signal deficiency and the fracture lines suspect for sclerosis. SOFT TISSUES: Prevertebral soft tissue expansion from the occipitocervical junction to C4. Diffuse signal alteration from the occipitocervical junction through the upper thoracic spine. CONCLUSION(S): 1. Probable cord contusion at C3-C4. 2. Transverse fracture through C3-C4 involving the bridging anterior syndesmophytes and disc space. 3. Diffuse disc-osteophytic bulge at C3-C4. 4. Complex fracture through the anterior aspect of T1 with signal pattern suggesting a long-standing process. 5. Prevertebral hematoma predominating between the occipitocervical junction and C4. Report Dictated on Final Dictated: 07/09/2018 7:45 am Dictating Physician: MD PIZANO B NELSON Signed Date and Time: 07/09/2018 8:16 am Signed by: MD PIZANO B NELSON Transcribed Date and Time: 07/09/2018 7:45 Normal [facility] Magnesiumon 07-09-2018 Magnesium mass conc 2.2 mg/dL Normal 1.6-2.3 [facility] Comment on above: Performed By: #### H EMDF, PT, BMP3M, PHOS3, MG3, CK3 #### [facility] [address] [place], [place] #### VD25H #### [facility] [address] [place] [address] Phosphoruson 07-09-2018 Phosphate mass conc 4.0 mg/dL Normal 2.5-4.5 [facility] Comment on above: Performed By: #### H EMDF, PT, BMP3M, PHOS3, MG3, CK3 #### [facility] [address], [place] #### VD25H #### [facility] [address] [place], [place] Prothrombin Timeon 9 INR Coag RelTime (PPP) 1.0 Normal 0.9-1.1 [facility] Comment on above: Result Comment: Yefri mmended Anticoagulant Therapy: SEE BELOW ----- INR of 2.0 - 3.0 : - Prophylaxis of Venous Thrombosis (high-risk surgery) - Treatment of Venous Thrombosis - Treatment of Pulmonary Embolism (Includes tissue heart valves, Acute Myocardial Infarction to prevent systemic embolism, Valvular Heart Disease, and Atrial Fibrillation) ----- INR of 2.5 - 3.5 : - Mechanical Prosthetic Valves (high risk) - If oral anticoagulant therapy is used to prevent Myocardial Infarction Performed By: #### H EMDF, PT, BMP3M, PHOS3, MG3, CK3 #### [place] [address] [place], [place] #### VD25H #### [facility] [address] [place], [place] Prothrombin time (PT) Coag time (PPP) 10.3 s Normal 9.0-12.0 [facility] Comment on above: Result Comment: . Performed By: #### H EMDF, PT, BMP3M, PHOS3, MG3, CK3 #### [facility] [address] [place], [place] #### VD25H #### [facility] [address] [place], [place] TS GELon 07-09-2018 TS GEL ABO Group: O Rh, Gel: POS Antibody Screen Gel: NEG Normal [facility] Comment on above: Performed By: #### T SGL #### [employer] [address] [place] [address] Vit D 25-OH, Totalon 019 Vit D 25-OH, Total 23 ng/mL Low 30-100 [facility] [employer] [facility] Comment on above: Result Comment: Ther apy is based on measurement of Total 25-OHD with the following classification levels: Less than 20 ng/mL: Indicative of Vit D deficiency 20-30 ng/mL: Suggests Vit D insufficiency Optimal: Greater than or equal to 30 ng/mL Test performed by [employer] Competitive Immunoassay, measuring Total Vitamin D, not individual fractions. Performed By: #### H EMDF, PT, BMP3M, PHOS3, MG3, CK3 #### [facility] [address] [place] [address] #### VD25H #### [facility] [address] [place] [address] Hematologyon 01-03-2003 Lymphocytes (Bld) [#/Vol] RECTUM, BIOPSY - BENIGN COLONIC MUCOSA WITH INTRAMUCOSAL LYMPHOID AGGREGATES. [facility] Otheron 01-03-2003 CONVERTED ELECTRONIC SIGNATURE BARBARA CASTILLO M.D., PATHOLOGIST (Electronic signature on file) Final Signed Out: 01/03/2003 15:09 [facility] CONVERTED ORDERING PROVIDER Ordering Provider: BENI VERA [facility] Culture, urine Bacteria identified Cx Nom (U) Culture exhibits no growth. [facility] Work Phone: Vital Signs Date Time Vital Sign Value Performing Clinician Facility 10-02-2023 13:56-0400 Diastolic blood pressure 62 mm[Hg] Fei Farooq MD Work Phone: [facility] 10-02-2023 13:56-0400 Heart rate 104 /min Fei Farooq MD Work Phone: [facility] 10-02-2023 13:56-0400 SaO2% (BldA) [Mass fraction] 94 % Fei Farooq MD Work Phone: [facility] 10-02-2023 13:56-0400 Systolic blood pressure 124 mm[Hg] Fei Farooq MD Work Phone: [employer] 10-02-2023 11:13-0400 Respiratory rate 16 /min Fei Farooq MD Work Phone: [id number] 10-02-2023 09:47-0400 Body mass index (BMI) [Ratio] 26.19 kg/m2 Fei Farooq MD Work Phone: [employer] 10-02-2023 09:47-0400 Body temperature 98.01 [degF] Fei Farooq MD Work Phone: [employer] 10-02-2023 09:47-0400 Body weight 92.53 kg Fei Farooq MD Work Phone: [employer] 05-20-2022 18:30-0500 Body mass index (BMI) [Ratio] 26.32 kg/m2 Abelardo Gombash DO Work Phone: [employer] 05-20-2022 18:30-0500 Body temperature 97.3 [degF] Abelardo Gombash DO Work Phone: [employer] 05-20-2022 18:30-0500 Body weight 92.99 kg Abelardo Gombash DO Work Phone: [employer] 05-20-2022 18:30-0500 Diastolic blood pressure 108 mm[Hg] Abelardo Gombash DO Work Phone: [employer] 05-20-2022 18:30-0500 Heart rate 100 /min Abelardo Gombash DO Work Phone: [employer] 05-20-2022 18:30-0500 Respiratory rate 14 /min Abelardo Gombash DO Work Phone: [employer] 05-20-2022 18:30-0500 SaO2% (BldA) [Mass fraction] 98 % Abelardo Gombash DO Work Phone: [employer] 05-20-2022 18:30-0500 Systolic blood pressure 125 mm[Hg] Abelardo Gombash DO Work Phone: [facility] 05-15-2021 09:40-0500 Body height 188 cm Timothy Micheal DO Work Phone: [facility] 05-15-2021 09:40-0500 Body mass index (BMI) [Ratio] 23.75 kg/m2 Timothy Micheal DO Work Phone: [facility] 05-15-2021 09:40-0500 Body weight 83.92 kg Timothy Micheal DO Work Phone: [employer] 05-15-2021 09:38-0500 Body temperature 97.59 [degF] Timothy Micheal DO Work Phone: [employer] 05-15-2021 09:38-0500 Diastolic blood pressure 76 mm[Hg] Timothy Micheal DO Work Phone: [employer] 05-15-2021 09:38-0500 Heart rate 102 /min Timothy Micheal DO Work Phone: [employer] 05-15-2021 09:38-0500 Respiratory rate 16 /min Timothy Micheal DO Work Phone: [employer] 05-15-2021 09:38-0500 SaO2% (BldA) [Mass fraction] 99 % Timothy Micheal DO Work Phone: [employer] 05-15-2021 09:38-0500 Systolic blood pressure 115 mm[Hg] Timothy Micheal DO Work Phone: [employer] 03-24-2021 10:20-0500 Respiratory rate 18 /min Brady Nesheim DO Work Phone: [employer] 03-24-2021 10:20-0500 SaO2% (BldA) [Mass fraction] 94 % Brady Nesheim DO Work Phone: [facility] 03-24-2021 08:44-0500 Body temperature 97.7 [degF] Brady Nesheim DO Work Phone: [employer] 03-24-2021 08:44-0500 Diastolic blood pressure 55 mm[Hg] Brady [facility] DO [facility] 03-24-2021 08:44-0500 Heart rate 85 /min Brady Nesheim DO Work Phone: [facility] 03-24-2021 08:44-0500 Systolic blood pressure 85 mm[Hg] Brady Nesheim DO Work Phone: [facility] 03-20-2021 13:41-0500 Body height 188 cm Brady Nesheim DO Work Phone: [facility] 03-20-2021 11:16-0500 Body mass index (BMI) [Ratio] 23.86 kg/m2 Brady Nesheim DO Work Phone: [facility] 03-20-2021 11:16-0500 Body weight 84.32 kg Brady Nesheim DO Work Phone: [facility] Comment on above: per Nataly RN (bed scal e measurement) on 03/20/2021 03-18-2021 15:02-0500 Body temperature 99.5 [degF] Boo Castor MD Work Phone: [facility] 03-18-2021 15:02-0500 Diastolic blood pressure 82 mm[Hg] Boo Castro MD Work Phone: [facility] 03-18-2021 15:02-0500 Heart rate 111 /min Boo Castro MD Work Phone: [facility] 03-18-2021 15:02-0500 Respiratory rate 18 /min Boo Castro MD Work Phone: [facility] 03-18-2021 15:02-0500 SaO2% (BldA) [Mass fraction] 93 % Boo Castro MD Work Phone: [facility] 03-18-2021 15:02-0500 Systolic blood pressure 111 mm[Hg] Boo Castro MD Work Phone: [facility] 10-30-2020 17:10-0400 Diastolic blood pressure 82 mm[Hg] Bethany Clemons MD Work Phone: [facility] Work Phone: 10-30-2020 17:10-0400 Heart rate 110 /min Bethany Clemons MD Work Phone: [employer] Work Phone: 10-30-2020 17:10-0400 Respiratory rate 16 /min Bethany Clemons MD Work Phone: [employer] Work Phone: 10-30-2020 17:10-0400 SaO2% (BldA) [Mass fraction] 99 % Bethany Clemons MD Work Phone: [employer] Work Phone: 10-30-2020 17:10-0400 Systolic blood pressure 125 mm[Hg] Bethany Clemons MD Work Phone: [employer] Work Phone: 10-30-2020 13:02-0400 Body mass index (BMI) [Ratio] 24.65 kg/m2 Bethany Clemons MD Work Phone: [employer] Work Phone: 10-30-2020 13:02-0400 Body temperature 96.91 [degF] Bethany Clemons MD Work Phone: [employer] Work Phone: 10-30-2020 13:02-0400 Body weight 87.09 kg Bethany Clemons MD Work Phone: [employer] Work Phone: 09-22-2020 05:01-0400 Diastolic blood pressure 76 mm[Hg] Elizabeth Moura MD Work Phone: [employer] Work Phone: 09-22-2020 05:01-0400 Systolic blood pressure 114 mm[Hg] Elizabeth Moura MD Work Phone: [employer] Work Phone: 09-22-2020 00:26-0400 Body temperature 97.81 [degF] Elizabeth Moura MD Work Phone: [employer] Work Phone: 09-22-2020 00:26-0400 Heart rate 86 /min Elizabeth Moura MD Work Phone: [facility] Work Phone: 09-22-2020 00:26-0400 Respiratory rate 16 /min Elizabeth Moura MD Work Phone: [facility] Work Phone: 09-22-2020 00:26-0400 SaO2% (BldA) [Mass fraction] 98 % Elizabeth Moura MD Work Phone: [facility] Work Phone: 06-26-2020 21:50-0500 BP Diastolic 71 mm[Hg] Abelardo [facility] Work Phone: 06-26-2020 21:50-0500 BP Systolic 118 mm[Hg] Abelardo [employer] Work Phone: 06-26-2020 21:50-0500 Pulse (Heart Rate) 84 /min Abelardo Gabriel [employer] Work Phone: 06-26-2020 21:50-0500 Pulse Oximetry 96 % Abelardo Gabriel [employer] Work Phone: 06-26-2020 21:50-0500 Respiratory Rate 16 /min Abelardo Gabriel [employer] Work Phone: 06-26-2020 17:58-0500 BMI (Body Mass Index) 25.16 kg/m2 Abelardo Adryanmbgeorgie [employer] Work Phone: 06-26-2020 17:58-0500 Body Temperature 97.39 [degF] Abelardo Gabriel [employer] Work Phone: 06-26-2020 17:58-0500 Body weight 88.91 kg Abelardo Gabriel [employer] Work Phone: 06-26-2020 17:58-0500 Height 188 cm Abelardo Gabriel [employer] Work Phone: 05-16-2019 23:00-0500 Diastolic blood pressure 68 mm[Hg] Elizabeth Moura MD Work Phone: [facility] Work Phone: 05-16-2019 23:00-0500 Heart rate 95 /min Elizabeth Moura MD Work Phone: [facility] Work Phone: 05-16-2019 23:00-0500 Respiratory rate 18 /min Elizabeth Moura MD Work Phone: [facility] Work Phone: 05-16-2019 23:00-0500 SaO2% (BldA) [Mass fraction] 100 % Elizabeth Moura MD [facility] Work Phone: 05-16-2019 23:00-0500 Systolic blood pressure 115 mm[Hg] Elizabeth Moura MD Work Phone: [facility] Work Phone: 05-16-2019 19:57-0500 Body temperature 98.49 [degF] Elizabeth Moura MD [facility] Phone: [facility] Work Phone: NEGATED: Highlighted [id number] 14:34-0500 BMI (Body Mass Index) 22.16 kg/m2 Ana Stevenson FAMILY SERVICES SPECIALIST [facility] Work Phone: NEGATED: Highlighted [id number] 14:34-0500 Body weight 78.02 kg Ana Stevenson FAMILY SERVICES SPECIALIST [facility] Work Phone: NEGATED: Highlighted [id number] 14:34-0500 Body weight 78 kg Ana Stevenson FAMILY SERVICES SPECIALIST [facility] Work Phone: NEGATED: Highlighted [id number] 14:34-0500 BP Diastolic 66 mm[Hg] Ana Peoplesch FAMILY SERVICES SPECIALIST [facility] Work Phone: NEGATED: Highlighted [id number] 14:34-0500 BP Systolic 102 mm[Hg] Ana Peoplesch FAMILY SERVICES SPECIALIST [facility] Work Phone: NEGATED: Highlighted [id number] 14:34-0500 Height 187.96 cm Ana Stevenson FAMILY SERVICES SPECIALIST [facility] Work Phone: NEGATED: Highlighted [id number] 14:34-0500 Height 188 cm Ana Stevenson FAMILY SERVICES SPECIALIST [facility] Work Phone: NEGATED: Highlighted [id number] 14:34-0500 Pulse (Heart Rate) 104 /min Ana Stevenson LPN [facility] Work Phone: Encounters Encounter Date Encounter Type Care Provider Facility Start: 09-30-2024 ambulatory Renard GARLAND Faci lity:[facility] Start: 09-24-2024 ambulatory Renard GARLAND Faci lity:[facility] Start: 09-24-2024 Registered Referred Renard Burgos - [facility] Start: 09-16-2024 ambulatory Renard GARLAND Faci lity:[facility] Start: 09-16-2024 Registered Referred Renard Burgos - [facility] Start: 09-11-2024 Registered Referred Renard Burgos - [facility] Start: 09-11-2024 End: 09-11-2024 ambulatory Renard GARLAND Facility:[facility] Start: 09-09-2024 End: 09-09-2024 ambulatory Renard GARLAND [facility] Work Phone: Start: 09-09-2024 End: 09-09-2024 Departed Referred Renard Burgos -[facility] Start: 09-09-2024 Registered Referred Renard Burgos - [facility] Start: 09-09-2024 End: 09-09-2024 ambulatory Renard GARLAND Facility:[facility] Start: 09-02-2024 Registered Referred Renard Burgos - [facility] Start: 09-02-2024 End: 09-02-2024 ambulatory Renard GARLAND Facility:[facility] Start: 08-26-2024 End: 08-26-2024 ambulatory Renard GARLAND [facility] Work Phone: Start: 08-26-2024 End: 08-26-2024 Departed Referred Renard Amezquitaros -[facility] Start: 08-26-2024 Registered Referred Renard Amezquitaros - [facility] Start: 08-26-2024 End: 08-26-2024 ambulatory Renard GARLAND Facility:[facility] Start: 08-23-2024 End: 08-23-2024 Departed Referred Renard Amezquitaros -[facility] Start: 08-23-2024 Registered Referred Renard Hensleysaros - [facility] Start: 08-23-2024 End: 08-23-2024 ambulatory Renard GARLAND Facility:[facility] Start: 08-19-2024 End: 08-19-2024 ambulatory Renard GARLAND [facility] Work Phone: Start: 08-19-2024 End: 08-19-2024 Departed Referred Renard Amezquitaros -[facility] Start: 08-19-2024 Registered Referred Renard Amezquitaros - [facility] Start: 08-19-2024 End: 08-19-2024 ambulatory Renard GARLAND Facility:[facility] Start: 08-12-2024 End: 08-12-2024 ambulatory Renard GARLAND [facility] Work Phone: Start: 08-12-2024 End: 08-12-2024 Departed Referred Renard Amezquitaros -[facility] Start: 08-12-2024 Registered Referred Renard Amezquitaros - [facility] Start: 08-12-2024 End: 08-12-2024 ambulatory Renard GARLAND Facility:[facility] Start: 08-05-2024 End: 08-05-2024 Departed Referred Renard Amezquitaros -[facility] Start: 08-05-2024 Registered Referred Renard Amezquitaros - [facility] Start: 08-05-2024 End: 08-05-2024 ambulatory Renard GARLAND Facility:[facility] Start: 07-29-2024 End: 07-29-2024 ambulatory Renard Shelliediego GARLAND [facility] Work Phone: Start: 07-29-2024 End: 07-29-2024 Dep[facility]ed Referred [facility] Start: 07-29-2024 Registered [facility] Start: 07-29-2024 End: 07-29-2024 ambulatory Renard GARLAND Facility:[facility] Start: 07-22-2024 End: 07-22-2024 ambulatory Renard GARLAND [facility] Work Phone: Start: 07-22-2024 End: 07-22-2024 Departed Referred Renard Burgos -[facility] Start: 07-22-2024 Registered Referred [facility] Start: 07-22-2024 End: 07-22-2024 ambulatory Renard GARLAND Facility:[facility] Start: 07-16-2024 End: 07-16-2024 ambulatory Renard GARLAND [facility] Work Phone: Start: 07-16-2024 End: 07-16-2024 Departed Referred [facility] Start: 07-16-2024 Registered Referred Renard Burgos - [facility] Start: 07-15-2024 End: 07-16-2024 ambulatory Renard GARLAND [facility] Work Phone: Start: 07-15-2024 End: 07-15-2024 Departed Referred Renard Burgos -[facility] Start: 07-15-2024 Registered Ref[facility] Start: 07-15-2024 End: 07-15-2024 ambulatory Renard GARLAND Facility:[facility] Start: 07-08-2024 End: 07-08-2024 ambulatory Renard GARLAND [facility] Work Phone: Start: 07-08-2024 End: 07-08-2024 Departed Referred Peter Katsaros -[facility] Start: 07-08-2024 Registered Referred Renard Burgos - [facility] Start: 07-08-2024 End: 07-08-2024 ambulatory Renard GARLAND Facility:[facility] Start: 07-01-2024 End: 07-01-2024 ambulatory Renard GARLAND [facility] Work Phone: Start: 07-01-2024 End: 07-01-2024 Departed Referred Renard Burgos -[facility] Start: 07-01-2024 Registered Referred Renard Burgos - [facility] Start: 07-01-2024 End: 07-01-2024 ambulatory Renard GARLAND Facility:[facility] Start: 06-27-2024 End: 06-27-2024 ambulatory Renard GARLAND [facility] Work Phone: Start: 06-27-2024 End: 06-27-2024 Departed Referred Renard Burgos -[facility] Start: 06-27-2024 Registered Referred Renard Burgos - [facility] Start: 06-27-2024 End: 06-27-2024 ambulatory Renard GARLAND Facility:[facility] Start: 06-24-2024 End: 06-24-2024 Subsequent hospital visit by physician Rashaad Pink NP Work Phone: [facility] Imaging Comment on above: Chronic cough Start: 06-24-2024 End: 06-24-2024 ambulatory RASHAAD SMITH [facility] Start: 06-24-2024 End: 06-24-2024 Departed Referred Renard Burgos -[facility] Start: 06-24-2024 Registered Referred Renard Burgos - [facility] Start: 06-24-2024 End: 06-24-2024 ambulatory Renard GARLAND Facility:[facility] Start: 06-17-2024 End: 06-17-2024 ambulatory Renard GARLAND [facility] Work Phone: Start: 06-17-2024 End: 06-17-2024 Departed Referred [facility] Start: 06-17-2024 Registered Referred [facility] Start: 06-17-2024 End: 06-17-2024 ambulatory Renard GARLAND Facility:[facility] Start: 06-12-2024 End: 09-11-2024 Transcribe Orders Rashaad Smith [employer] Work Phone: [facility] Central Scheduling Comment on above: Chronic cough (Prima ry Dx) Start: 06-10-2024 End: 06-10-2024 ambulatory Renard GARLAND [facility] Work Phone: Start: 06-10-2024 End: 06-10-2024 Departed Referred [facility] Start: 06-10-2024 Registered Referred [facility] Start: 06-10-2024 End: 06-10-2024 ambulatory Renard GARLAND Facility:[facility] Start: 06-07-2024 End: 06-07-2024 ambulatory Renard GARLAND [facility] Work Phone: Start: 06-07-2024 End: 06-07-2024 Departed Referred [facility]ard [facility] Start: 06-07-2024 Registered Referred [facility]ard [facility] Start: 06-07-2024 End: 06-07-2024 ambulatory Renard GALRAND Facility:[facility] Start: 06-03-2024 End: 06-03-2024 ambulatory Renard GARLAND [facility] Work Phone: Start: 06-03-2024 End: 06-03-2024 Departed Referred Renard [facility] Start: 06-03-2024 End: 06-03-2024 ambulatory Renard GARLAND Facility:[facility] Start: 05-27-2024 End: 05-27-2024 Departed Referred [facility] Start: 05-27-2024 End: 05-27-2024 ambulatory Renard GARLAND Facility:[facility] Start: 05-20-2024 End: 05-20-2024 Departed Referred Renard Burgos -[facility] Start: 05-20-2024 End: 05-20-2024 ambulatory Renard GARLAND Facility:[facility] Start: 05-13-2024 End: 05-13-2024 Departed Referred Renard Burgos -[facility] Start: 05-13-2024 End: 05-13-2024 ambulatory Renard GARLAND Facility:[facility] Start: 05-06-2024 End: 05-06-2024 Departed Referred Renard Burgos -[facility] Start: 05-06-2024 End: 05-06-2024 ambulatory Renard GARLAND Facility:[facility] Start: 05-03-2024 End: 05-03-2024 Telephone encounter Renard Cramer Phone: [facility] Clinical Communication Comment on above: Other Start: 04-29-2024 End: 04-29-2024 Departed Referred Renard Burgos -[facility] Start: 04-29-2024 End: 04-29-2024 ambulatory Renard GARLAND Facility:[facility] Start: 04-22-2024 End: 04-22-2024 Departed Referred Renard Burgos -[facility] Start: 04-22-2024 End: 04-22-2024 ambulatory Renard GARLAND Facility:[facility] Start: 04-15-2024 End: 04-15-2024 Departed Referred Renard Burgos [facility] Start: 04-15-2024 End: 04-15-2024 ambulatory Renard GARLAND Facility:[facility] Start: 04-08-2024 ambulatory Renard GARLAND Faci lity:[facility] Start: 04-08-2024 Registered Referred Renard Burgos - [facility] Start: 04-01-2024 ambulatory Renard GARLAND Faci lity:[facility] Start: 04-01-2024 Registered Referred Renard Burgos - [facility] Start: 03-25-2024 End: 03-25-2024 Departed Referred Renard [facility]os [facility] Start: 03-25-2024 End: 03-25-2024 ambulatory Renard Hensleysahola OLS Facility:[facility] Start: 03-18-2024 End: 03-18-2024 Departed Referred Renard Burgos [facility] Start: 03-18-2024 End: 03-18-2024 ambulatory Renard Hensleysahola OLS Facility:[facility] Start: 03-11-2024 End: 03-11-2024 Departed Referred Renard Shelliediego -[facility] Start: 03-11-2024 End: 03-11-2024 ambulatory Renard Burgos OLS Facility:[facility] Start: 03-04-2024 End: 03-04-2024 ambulatory Renard Burgos OLS Facility:[facility] Start: 02-26-2024 End: 02-26-2024 ambulatory Renard Burgos OLS Facility:[facility] Start: 02-23-2024 End: 02-23-2024 ambulatory Renard Burgos OLS Facility:[facility] Start: 02-19-2024 End: 02-19-2024 ambulatory Renard Burgos OLS Facility:[facility] Start: 02-12-2024 End: 02-12-2024 ambulatory Renard Hensleysahola OLS Facility:[facility] Start: 02-05-2024 End: 02-05-2024 ambulatory Renard Burgos OLS Facility:[facility] Start: 01-29-2024 End: 01-29-2024 ambulatory Renard Hensleysahola OLS Facility:[facility] Start: 01-22-2024 End: 01-22-2024 ambulatory Renard Hensleysaros OLS Facility:[facility] Start: 01-15-2024 ambulatory Renard Hensleysahola OLS Faci lity:[facility] Start: 01-08-2024 End: 01-08-2024 ambulatory Renard Hensleysaros OLS Facility:[facility] Start: 01-02-2024 ambulatory Renard Burgos OLS Faci lity:[facility] Start: 12-25-2023 ambulatory Renard Hensleysaros OLS Faci lity:[facility] Start: 12-18-2023 End: 12-18-2023 ambulatory Renard GARLAND Facility:[facility] Start: 12-11-2023 End: 12-11-2023 ambulatory Renard Shelliesaros OLS Facility:[facility] Start: 12-04-2023 End: 12-04-2023 ambulatory Renard Shelliediego OLS Facility:[facility] Start: 11-27-2023 End: 11-27-2023 ambulatory Renard Burgos OLS Facility:[facility] Start: 11-22-2023 End: 11-22-2023 ambulatory RENARD SHELLIEDIEGO [facility] Start: 11-22-2023 End: 11-22-2023 Subsequent hospital visit by physician Renard Burgos Work Phone: [facility] X-ray Imaging Comment on above: Dysphagia, oropharyn geal phase; Feeding difficulties Start: 11-20-2023 End: 11-20-2023 ambulatory Renard GARLAND Facility:[facility] Start: 11-13-2023 End: 11-13-2023 ambulatory Renard Shelliediego GARLAND Facility:[facility] Start: 11-06-2023 End: 11-06-2023 ambulatory Renard GARLAND Facility:[facility] Start: 10-30-2023 End: 10-30-2023 ambulatory Renard Shelliediego GARLAND Facility:[facility] Start: 10-23-2023 End: 10-23-2023 ambulatory Renard GARLAND Facility:[facility] Start: 10-16-2023 End: 01-15-2024 Transcribe Orders Renard Burgos Work Phone: [facility] Central Scheduling Comment on above: Dysphagia, oropharyn geal phase (Primary Dx); Feeding difficulties Start: 10-16-2023 End: 10-16-2023 ambulatory Renard GARLAND Facility:[facility] Start: 10-09-2023 End: 10-09-2023 ambulatory Renard GARLAND Facility:[facility] Start: 10-02-2023 End: 10-02-2023 Emergency department patient visit Fei Farooq MD Work Phone: [facility] ED Comment on above: Dyspnea, unspecified type (Primary Dx) Start: 08-07-[address] [facility] Start: 07-31-2023 End: 07-31-2023 ambulatory [facility] Work Phone: Start: 07-31-2023 End: 07-31-2023 [facility] Start: 07-31-[address] [facility] [facility] Start: 07-24-2023 End: 07-24-2023 ambulatory [facility] Work Phone: Start: 07-24-2023 End: 07-24-2023 [facility] Start: 07-17-2023 End: 07-17-2023 ambulatory [facility] Work Phone: Start: 07-17-2023 End: 07-17-2023 [facility] Start: 07-17-[address] [facility] [facility] Start: 07-10-2023 End: 07-10-2023 ambulatory [facility] Work Phone: Start: 07-10-2023 End: 07-10-2023 [facility] Start: 07-10-[address] [facility] Start: 07-03-2023 End: 07-03-2023 ambulatory [facility] Work Phone: Start: 07-03-2023 End: 07-03-2023 [facility] Start: 07-03-2023 [facility] Start[facility] 06-26-[address] [facility] Start: 06-19-2023 End: 06-19-2023 ambulatory [facility] Work Phone: Start: 06-19-2023 End: 06-19-2023 Departed Referred [facility] Start: 06-19-2023 Registered Referred [facility] Start: 06-12-2023 End: 06-12-2023 ambulatory [facility] Work Phone: Start: 06-12-2023 End: 06-12-2023 [facility] Start: 06-12-2023 [facility] Start: 06-05-2023 End: 06-05-2023 ambulatory [facility] Work Phone: Start: 06-05-2023 End: 06-05-2023 [facility] Start: 06-05-2023 [facility] Start: 05-29-2023 End: 05-29-2023 [facility] Start: 05-29-2023 Registered Referred [facility] Start: 05-22-2023 End: 05-22-2023 ambulatory [facility] Work Phone: Start: 05-22-2023 End: 05-22-2023 [facility] Start: 05-22-2023 Registered Referred [facility] Start: 05-15-2023 End: 05-15-2023 [facility] Start: 05-15-2023 Registered [facility] Start: 05-08-2023 End: 05-08-2023 ambulatory [facility] Work Phone: Start: 05-08-2023 End: 05-08-2023 [facility] Start: 04-17-2023 End: 04-17-2023 ambulatory [facility] Work Phone: Start: 04-17-2023 End: 04-17-2023 [facility] Start: 04-17-2023 Registered Referred [facility] Start: 04-14-2023 End: 04-14-2023 ambulatory [facility] Work Phone: Start: 04-14-2023 End: 04-14-2023 [facility] Start: 04-14-2023 Registered Referred [facility] Start: 04-10-2023 End: 04-10-2023 [facility] Start: 04-10-2023 [facility] Start: 04-03-2023 End: 04-03-2023 ambulatory [facility] Work Phone: Start: 04-03-2023 End: 04-03-2023 [facility] Start: 04-03-2023 [facility] Start: 03-27-2023 End: 03-27-2023 ambulatory [facility] Work Phone: Start: 03-27-2023 End: 03-27-2023 [facility] Start: 03-27-2023 [facility] Start: 03-20-2023 End: 03-20-2023 ambulatory [facility] Work Phone: Start: 03-20-2023 End: 03-20-2023 [facility] Start: 03-20-2023 [facility] Start: 03-16-2023 End: 03-16-2023 ambulatory [facility] Work Phone: Start: 03-16-2023 End: 03-16-2023 [facility] Start: 03-16-2023 Registered Referred [facility] Start: 03-13-2023 End: 03-13-2023 ambulatory [facility] Work Phone: Start: 03-13-2023 End: 03-13-2023 [facility] Start: 03-06-2023 End: 03-06-2023 ambulatory [facility] Work Phone: Start: 03-06-2023 End: 03-06-2023 [facility] Start: 03-06-2023 [facility] Start: 02-27-2023 End: 02-27-2023 ambulatory [facility] Work Phone: Start: 02-27-2023 End: 02-27-2023 [facility] Start: 02-20-2023 End: 02-20-2023 ambulatory [facility] Work Phone: Start: 02-20-2023 End: 02-20-2023 [facility] Start: 02-20-2023 [facility] Start: 02-13-2023 End: 02-13-2023 ambulatory [facility] Work Phone: Start: 02-13-2023 End: 02-13-2023 [facility] Start: 02-13-2023 Registered Referred [facility] Start: 02-06-2023 End: 02-06-2023 ambulatory [facility] Work Phone: Start: 02-06-2023 End: 02-06-2023 [facility] Start: 02-06-2023 Registered Referred [facility] Start: 01-30-2023 End: 01-30-2023 ambulatory [facility] Work Phone: Start: 01-30-2023 End: 01-30-2023 Departed Referred [facility] Start: 01-30-2023 Reg[facility] Start: 01-23-2023 End: 01-23-2023 Departed Referred [facility] Start: 01-23-2023 Registered Referred [facility] Start: 01-16-2023 End: 01-16-2023 ambulatory [facility] Work Phone: Start: 01-16-2023 End: 01-16-2023 [facility] Start: 01-16-2023 Registered Referred [facility] Start: 01-09-2023 End: 01-09-2023 Departed Referred [facility] Start: 01-09-2023 Registered Referred [facility] Start: 01-03-2023 End: 01-03-2023 ambulatory [facility] Work Phone: Start: 01-03-2023 End: 01-03-2023 Departed Referred [facility] Start: 01-03-2023 Registered Referred [facility] Start: 12-26-2022 End: 12-26-2022 ambulatory [facility] Work Phone: Start: 12-26-2022 End: 12-26-2022 Dep[facility]ed [facility] Start: 12-26-2022 Registered [facility] Start: 12-19-2022 End: 12-19-2022 ambulatory [facility] Work Phone: Start: 12-19-2022 End: 12-19-2022 [facility] Start: 12-19-2022 [facility] Start: 12-12-2022 End: 12-12-2022 [facility]ed [facility] Start: 12-12-2022 [facility] Start: 12-05-2022 End: 12-05-2022 ambulatory [facility] Work Phone: Start: 12-05-2022 End: 12-05-2022 [facility] Start: 12-05-2022 [facility] Start: 11-28-2022 End: 11-28-2022 ambulatory [facility] Work Phone: Start: 11-28-2022 End: 11-28-2022 [facility] Start: 11-28-2022 [facility] Start: 11-21-2022 End: 11-21-2022 ambulatory [facility] Work Phone: Start: 11-21-2022 End: 11-21-2022 [facility] Start: 11-21-2022 [facility] Start: 11-14-2022 End: 11-14-2022 ambulatory [facility] Work Phone: Start: 11-14-2022 End: 11-14-2022 [facility] Start: 11-14-2022 [facility] Start: 11-07-2022 [facility] Start: 10-31-2022 End: 10-31-2022 ambulatory [facility] Work Phone: Start: 10-31-2022 End: 10-31-2022 Departed Referred [facility] Start: 10-31-2022 Registered Referred [facility] Start: 10-24-2022 End: 10-24-2022 ambulatory [facility] Work Phone: Start: 10-24-2022 End: 10-24-2022 Departed Referred [facility] Start: 10-24-2022 Registered Referred [facility] Start: 10-17-2022 End: 10-17-2022 Departed Referred [facility] Start: 10-17-2022 Registered Referred [facility] Start: 10-10-2022 End: 10-10-2022 ambulatory [facility] Work Phone: Start: 10-10-2022 End: 10-10-2022 Departed Referred [facility] Start: 10-10-2022 Registered Referred [facility] Start: 10-03-2022 End: 10-03-2022 ambulatory [facility] Work Phone: Start: 10-03-2022 End: 10-03-2022 Departed Referred [facility] Start: 09-19-2022 End: 09-19-2022 Departed Referred [facility] Start: 09-19-2022 Registered Referred [facility] Start: 09-12-2022 End: 09-12-2022 ambulatory [facility] Work Phone: Start: 09-12-2022 End: 09-12-2022 Departed Referred [facility] Start: 09-05-2022 End: 09-05-2022 Departed Referred [facility] Start: 09-05-2022 Registered Referred [facility] Start: 08-29-2022 End: 08-29-2022 Departed Referred [facility] Start: 08-29-2022 Registered Referred [facility] Start: 08-22-2022 End: 08-22-2022 ambulatory [facility] Work Phone: Start: 08-22-2022 End: 08-22-2022 Departed Referred [facility] Start: 08-22-2022 Registered Referred [facility] Start: 08-15-2022 End: 08-15-2022 ambulatory [facility] Work Phone: Start: 08-15-2022 End: 08-15-2022 Departed Referred [facility] Start: 08-15-2022 Registered Referred [facility] Start: 08-08-2022 End: 08-08-2022 Departed Referred [facility] Start: 08-08-2022 Registered Referred [facility] Start: 08-01-2022 End: 08-01-2022 ambulatory [facility] Work Phone: Start: 08-01-2022 End: 08-01-2022 Departed Referred [facility] Start: 08-01-2022 Registered Referred [facility] Start: 07-25-2022 End: 07-25-2022 ambulatory [facility] Work Phone: Start: 07-25-2022 End: 07-25-2022 Departed Referred [facility] Start: 07-25-2022 Registered Referred [facility] Start: 07-19-2022 End: 07-19-2022 Departed Referred [facility] Start: 07-19-2022 [facility] Start: 07-18-2022 End: 07-18-2022 ambulatory [facility] Work Phone: Start: 07-18-2022 End: 07-18-2022 [facility] Start: 07-18-2022 [facility] Start: 07-11-2022 End: 07-11-2022 ambulatory [facility] Work Phone: Start: 07-11-2022 End: 07-11-2022 [facility] Start: 07-11-2022 [facility] Start: 07-04-2022 End: 07-04-2022 [facility] Start: 07-04-2022 [facility] Start: 06-27-2022 End: 06-27-2022 ambulatory [facility] Work Phone: Start: 06-27-2022 End: 06-27-2022 [facility] Start: 06-27-2022 [facility] Start: 06-20-2022 End: 06-20-2022 ambulatory [facility] Work Phone: Start: 06-20-2022 End: 06-20-2022 [facility] Start: 06-20-2022 [facility] Start: 06-13-2022 End: 06-13-2022 ambulatory [facility] Work Phone: Start: 06-13-2022 End: 06-13-2022 [facility] Start: 06-13-2022 [facility] Start: 06-06-2022 End: 06-06-2022 [facility] Start: 06-06-[address] [facility] Start: 05-30-2022 End: 05-30-2022 ambulatory [facility] Work Phone: Start: 05-30-2022 End: 05-30-2022 [facility] Start: 05-23-2022 End: 05-23-2022 ambulatory [facility] Work Phone: Start: 05-23-2022 End: 05-23-2022 Departed Referred [facility] Start: 05-23-2022 Registered Referred [facility] Start: 05-20-2022 End: 05-20-2022 Emergency department patient visit Abelardo Rios Work Phone: [facility] ED Comment on above: Dislodged gastrostom y tube (Primary Dx) Start: 05-16-2022 End: 05-16-2022 Departed Referred [facility] Start: 05-16-[address] [facility] Start: 05-09-2022 End: 05-09-2022 ambulatory [facility] Work Phone: Start: 05-09-2022 End: 05-09-2022 [facility] Start: 05-09-2022 [facility] Start: 05-03-2022 End: 05-03-2022 ambulatory [facility] Work Phone: Start: 05-03-2022 End: 05-03-2022 Departed Referred [facility] Start: 05-03-2022 Registered Ref[facility] Start: 04-26-2022 End: 04-26-2022 Departed Referred [facility] Start: 04-26-2022 Registered Referred [facility] Start: 04-18-2022 End: 04-18-2022 ambulatory [facility] Work Phone: Start: 04-18-2022 End: 04-18-2022 Departed Referred [facility] Start: 04-18-2022 [facility] Start: 04-14-2022 End: 04-14-2022 ambulatory [facility] Work Phone: Start: 04-14-2022 End: 04-14-2022 [facility] Start: 04-14-2022 [facility] Start: 04-11-2022 End: 04-11-2022 ambulatory [facility] Work Phone: Start: 04-11-2022 End: 04-11-2022 [facility] Start: 04-11-2022 Registered Referred [facility] Start: 04-04-2022 End: 04-04-2022 ambulatory [facility] Work Phone: Start: 04-04-2022 End: 04-04-2022 Departed Referred [facility] Start: 04-04-2022 Registered Referred [facility] Start: 03-28-2022 End: 03-28-2022 ambulatory [facility] Work Phone: Start: 03-28-2022 End: 03-28-2022 [facility] Start: 03-28-2022 [facility] Start: 03-21-2022 End: 03-21-2022 ambulatory [facility] Work Phone: Start: 03-21-2022 End: 03-21-2022 Departed Referred [facility] Start: 03-21-2022 Registered Referred [facility] Start: 03-14-2022 End: 03-14-2022 [facility] Start: 03-14-2022 Registered Referred [facility] Start: 2022 End: 2022 ambulatory [facility] Work Phone: Start: 2022 End: 2022 [facility] Start: 2022 Registered Referred [facility] Start: 02-28-2022 End: 02-28-2022 [facility]ed [facility] Start: 02-28-2022 Registered Referred [facility] Start: 02-21-2022 End: 02-21-2022 ambulatory [facility] Work Phone: Start: 02-21-2022 End: 02-21-2022 [facility]ed [facility] Start: 02-21-2022 Registered Referred [facility] Start: 02-14-2022 End: 02-14-2022 ambulatory [facility] Work Phone: Start: 02-14-2022 End: 02-14-2022 [facility]ed [facility] Start: 02-14-2022 [facility] Start: 02-07-2022 End: 02-07-2022 ambulatory [facility] Work Phone: Start: 02-07-2022 End: 02-07-2022 Departed Referred [facility] Start: 02-07-[address] [facility] Start: 01-31-2022 End: 01-31-2022 ambulatory [facility] Work Phone: Start: 01-31-2022 End: 01-31-2022 [facility]ed [facility] Start: 01-31-[address] [facility] Start: 01-24-2022 End: 01-24-2022 ambulatory [facility] Work Phone: Start: 01-24-2022 End: 01-24-2022 [facility]ed [facility] Start: 01-24-2022 [facility] Start: 01-17-2022 End: 01-17-2022 [facility]ed [facility] Start: 01-17-2022 [facility] Start: 01-10-2022 End: 01-10-2022 ambulatory [facility] Work Phone: Start: 01-10-2022 End: 01-10-2022 [facility]ed [facility] Start: 01-10-[address] [facility] Start: 01-04-2022 End: 01-04-2022 ambulatory [facility] Work Phone: Start: 01-04-2022 End: 01-04-2022 [facility]ed [facility] Start: 01-04-[address] [facility] Start: 12-27-2021 End: 12-27-2021 ambulatory [facility] Work Phone: Start: 12-27-2021 End: 12-27-2021 [facility]ed [facility] Start: 12-27-2021 Registered [facility] Start: 12-20-2021 End: 12-20-2021 ambulatory [facility] Work Phone: Start: 12-20-2021 End: 12-20-2021 Departed Referred [facility] Start: 12-20-2021 Registered [facility] Start: 12-13-2021 End: 12-13-2021 [facility]ed [facility] Start: 12-13-2021 Registered [facility] Start: 12-06-2021 End: 12-06-2021 ambulatory [facility] Work Phone: Start: 12-06-2021 End: 12-06-2021 [facility]ed [facility] Start: 12-06-2021 Registered Referred [facility] Start: 11-29-2021 End: 11-29-2021 ambulatory [facility] Work Phone: Start: 11-29-2021 End: 11-29-2021 Departed Referred [facility] Start: 11-29-2021 Registered Referred [facility] Start: 11-22-2021 End: 11-22-2021 Departed Referred [facility] Start: 11-22-2021 Registered [facility] Start: 11-15-2021 End: 11-15-2021 Departed Referred [facility] Start: 11-15-2021 Registered [facility] Start: 11-08-2021 End: 11-08-2021 Departed Referred [facility] Start: 10-25-2021 Registered [facility] Start: 10-18-2021 Registered Ref[facility] Start: 10-11-2021 Registered Ref[facility] Start: 10-04-2021 Registered Ref[facility] Start: 09-28-2021 End: 09-28-2021 Departed Referred [facility] Start: 09-28-2021 Registered Ref[facility] Start: 09-20-2021 End: 09-20-2021 [facility]ed [facility] Start: 09-20-2021 Registered [facility] Start: 09-13-2021 End: 09-13-2021 [facility]ed [facility] Start: 09-13-2021 Registered [facility] Start: 09-06-2021 End: 09-06-2021 [facility]ed [facility] Start: 09-06-2021 Registered [facility] Start: 08-30-2021 End: 08-30-2021 Departed Referred [facility] Start: 08-30-2021 Registered [facility] Start: 08-23-2021 End: 08-23-2021 [facility]ed [facility] Start: 08-23-2021 Registered [facility] Start: 08-18-2021 End: 08-18-2021 Departed Referred [facility] Start: 08-18-2021 Registered [facility] Start: 08-16-2021 End: 08-16-2021 Dep[facility]ed [facility] Start: 08-16-2021 Registered [facility] Start: 08-09-2021 End: 08-09-2021 Departed Referred [facility] Start: 08-02-2021 End: 08-02-2021 Departed Referred [facility] Start: 08-02-2021 Registered Referred [facility] Start: 07-26-2021 End: 07-26-2021 [facility]ed [facility] Start: 07-26-2021 Registered Referred [facility] Start: 07-19-2021 End: 07-19-2021 Departed [facility] Start: 07-19-2021 Reg[facility] Start: 07-12-2021 End: 07-12-2021 Dep[facility]ed [facility] Start: 07-05-2021 End: 07-05-2021 Dep[facility]ed [facility] Start: 07-05-2021 Registered Referred [facility] Start: 06-28-2021 End: 06-28-2021 Departed [facility] Start: 06-28-2021 Registered Referred [facility] Start: 06-21-2021 End: 06-21-2021 Departed [facility] Start: 06-21-2021 Registered Referred [facility] Start: 06-14-2021 Registered [facility] Start: 06-07-2021 End: 06-07-2021 Departed [facility] Start: 06-07-2021 Registered [facility] Start: 05-31-2021 End: 05-31-2021 Departed [facility] Start: 05-31-2021 Registered Referred [facility] Start: 05-24-2021 End: 05-24-2021 [facility]arted [facility] Start: 05-17-2021 Registered Referred [facility] Start: 05-15-2021 End: 05-15-2021 Emergency department patient visit Timothy Burton DO Work Phone: [facility] Comment on above: PEG tube malfunction (HCC) (Primary Dx) Start: 05-14-2021 Registered Referred [facility] Start: 05-10-2021 Registered [facility] Start: 05-03-2021 Registered Referred [facility] Start: 04-26-2021 Registered [facility] Start: 04-19-2021 Registered [facility] Start: 04-12-2021 Registered Referred [facility] Start: 04-07-2021 Registered Referred [facility] Start: 03-19-2021 End: 03-24-2021 Evaluation and management of inpatient Brady Desai DO Work Phone: [facility] Comment on above: Respiratory syncytia l virus (RSV) (Primary Dx); Hypoxia Start: 03-18-2021 End: 03-18-2021 Emergency department patient visit Boo Castro MD [facility] Comment on above: Respiratory syncytia l virus (RSV) (Primary Dx); Hypoxia Start: 10-30-2020 End: 10-30-2020 Emergency department patient visit Bethany Clemons MD Work Phone[facility] Comment on above: Feeding tube dysfunc tion, initial encounter (Primary Dx) Start: 09-22-2020 End: 09-22-2020 Emergency department patient visit Elizabeth Moura MD Work Phone[facility] Comment on above: PEG tube malfunction (HCC) (Primary Dx) Start: 06-26-2020 End: 06-26-2020 Emergency department patient visit Abelardo Rios Work Phone: [facility] Comment on above: PEG tube malfunction (HCC) (Primary Dx) Start: 05-22-2019 End: 05-22-2019 Patient encounter procedure Jarvis Kendall MD Work Phone: [facility] Work Phone: Start: 05-22-2019 End: 05-22-2019 Pt evaluation Jarvis Kendall MD Work Phone: [facility] Work Phone: Start: 05-16-2019 End: 05-16-2019 Emergency department patient visit Elizabeth Moura MD Work Phone: [facility] Comment on above: Contusion of right h ip, initial encounter (Primary Dx) Start: 08-15-2018 Evaluation and management of inpatient UNKNOWN PROVIDER [facility] Start: 07-08-2018 Evaluation and management of inpatient JORDAN GEUBE [facility] Start: 01-02-2003 End: 01-02-2003 Patient encounter procedure Beni Vera Work Phone: [facility] Start: 01-02-2003 Results Only Beni Vera Work Phone: [facility] Procedures Date Procedure Procedure Detail Performing Clinician Start: 07-16-2024 Vitamin D, 25-hydrox y measurement Renard GARLAND Comment on above: Vitamin D StatusDefi ciency: <20 ng/mL (50nmol/L)Insufficiency: 20-30 ng/mL (50-75 nmol/L)Sufficiency: 30-100 ng/mL (75-250 nmol/L)Toxicity: >100 ng/mL (>250 nmol/L) Start: 06-27-2024 Urine culture Renard GARLAND Start: 06-27-2024 Urnls dip stick/tabl et reagent auto microscopy Renard GARLAND Start: 06-24-2024 Measurement of renal function Renard GARLAND Comment on above: GFR Calc Start: 06-07-2024 Urine culture Renard easton GILL Start: 06-07-2024 Urnls dip stick/tabl et reagent auto microscopy Renard Burgos GILL Start: 11-22-2023 Radiologic exam swal low function contrast study Renard Burgos Work Phone: Start: 10-02-2023 Comprehensive metabo lic panel Helen Toledo PA-C Work Phone: Start: 10-02-2023 Radiologic exam ches t single view Helen Phoenix Janas PA-C Work Phone: Start: 10-02-2023 Ecg routine ecg w/le ast 12 lds trcg only w/o i&r Helen Toledo PA-C Work Phone: Start: 10-02-2023 Ct head/brain w/o contrast material Helen Toledo PA-C Work Phone: Start: 01-30-2023 Urine culture Start: 05-20-2022 Perq replacement gtu be not req revj gstrst trc Dejah Hazel DO Work Phone: Start: 05-20-2022 Radiologic exam abdo men 1 view Dejah Pattersons DO Work Phone: Start: 08-18-2021 Urine culture Start: 03-24-2021 Gluc bld gluc mntr d ev cleared fda spec home use Rafa Michel MD Work Phone: Start: 03-24-2021 Basic metabolic pane l calcium total Niya Fernandez MD Work Phone: Start: 03-24-2021 Manual Differential panel - Blood Niya Fernandez MD Work Phone: Start: 03-23-2021 Gluc bld gluc mntr d ev cleared fda spec home use Rafa Michel MD Work Phone: Start: 03-23-2021 Gluc bld gluc mntr d ev cleared fda spec home use Rafa Michel MD Work Phone: Start: 03-23-2021 Gluc bld gluc mntr d ev cleared fda spec home use Rafa Michel MD Work Phone: Start: 03-23-2021 End: 03-23-2021 Basic metabolic panel calcium total Niya Fernandez MD Work Phone: Start: 03-22-2021 Gluc bld gluc mntr d ev cleared fda spec home use Rafa Michel MD Work Phone: Start: 03-22-2021 Gluc bld gluc mntr d ev cleared fda spec home use Rafa Michel MD Work Phone: Start: 03-22-2021 Gluc bld gluc mntr d ev cleared fda spec home use Rafa Michel MD Work Phone: Start: 03-22-2021 Gluc bld gluc mntr d ev cleared fda spec home use Rafa Michel MD Work Phone: Start: 03-22-2021 Gluc bld gluc mntr d ev cleared fda spec home use Rafa Michel MD Work Phone: Start: 03-22-2021 MRSA BY PCR Isaac Stafford MD Work Phone: Start: 03-22-2021 Drug screen quantita tive vancomycin Chanel Singh MD Work Phone: Start: 03-22-2021 Hemoglobin glycosyla td a1c Isaac Stafford MD Work Phone: Start: 03-21-2021 Gluc bld gluc mntr d ev cleared fda spec home use Rafa Michel MD Work Phone: Start: 03-21-2021 Gluc bld gluc mntr d ev cleared fda spec home use Brady Desai DO Work Phone: Start: 03-21-2021 Assay of magnesium Suraj Michel MD Work Phone: Start: 03-21-2021 BASIC METABOLIC PANE L W/ REFLEX TO MG FOR LOW K Rafa Michel MD Work Phone: Start: 03-20-2021 Speech and language therapy regime Chanel Singh MD Work Phone: Start: 03-20-2021 Basic metabolic pane l calcium total Rafa Michel MD Work Phone: Start: 03-20-2021 C-reactive protein Suraj Michel MD Work Phone: Start: 03-19-2021 COVID-19, FLU A/B, A ND RSV COMBO Brady G Nesheim DO Work Phone: Start: 03-19-2021 Assay of lactate Brady G Nesheim DO Work Phone: Start: 03-19-2021 Culture bacterial bl ood aerobic w/id isolates Brady G Nesheim DO Work Phone: Start: 03-19-2021 CULTURE, BLOOD 1 Brady G Nesheim DO Work Phone: Start: 03-19-2021 RESPIRATORY PANEL, MOLECULAR, WITH COVID-19 Brady G Nesheim DO Work Phone: Start: 03-19-2021 Basic metabolic pane l calcium total Brady G Nesheim DO Work Phone: Start: 03-19-2021 RBC morphology findi ng Nom (Bld) Brady G Nesheim DO Work Phone: Start: 03-19-2021 Radiologic exam ches t single view Brady G Nesheim DO Work Phone: Start: 03-19-2021 Ecg routine ecg w/le ast 12 lds w/i&r Brady G Nesheim DO Work Phone: Start: 03-18-2021 Antibody screen Boo Castro MD Work Phone: Start: 03-18-2021 Ct angiography head w/contrast/noncontrast Boo Castro MD Work Phone: Start: 03-18-2021 Ct angiography chest w/contrast/noncontrast Boo Castro MD Work Phone: Start: 03-18-2021 Radiologic exam ches t single view Boo Castro MD Work Phone: Start: 03-18-2021 Basic metabolic pane l calcium total Boo Castro MD Work Phone: Start: 03-18-2021 Blood typing serolog ic abo Boo Castro MD Work Phone: Start: 03-18-2021 PROTIME/INR & PTT Corby Castro MD Work Phone: Start: 03-18-2021 COVID-19, FLU A/B, A ND RSV COMBO Boo Castro MD Work Phone: Start: 03-18-2021 Ecg routine ecg w/le ast 12 lds w/i&r Boo Castro MD Work Phone: Start: 10-30-2020 Contrast injection p erq radiologic eval gi tube Helen SCHUMACHER Work Phone: Start: 10-30-2020 FEEDING TUBE REPLACEMENT Helen SCHUMACHER Work Phone: Start: 09-22-2020 Contrast injection p erq radiologic eval gi tube Elizabeth Moura MD Work Phone: Start: 06-26-2020 Contrast injection p erq radiologic eval gi tube Abelardo Rios Work Phone: Start: 06-26-2020 FEEDING TUBE REPLACEMENT Abelardo Rios Work Phone: Start: 05-22-2019 End: 05-22-2019 Arthrocentesis aspir&/inj major jt/bursa w/o us Jarvis Kendall MD Work Phone: Start: 05-22-2019 End: 05-22-2019 Blood pressure within normal parameters - no follow-up required Jarvis Kendall MD Work Phone: Start: 05-22-2019 End: 05-22-2019 BMI documented within normal parameters - no follow-up plan is required Jarvis Kendall MD Work Phone: Start: 05-22-2019 End: 05-22-2019 Documentation of current medications Jarvis Kendall MD Work Phone: Start: 05-22-2019 End: 05-22-2019 Injection - triamcinolone acetonide 10 mg Jarvis Kendall MD Work Phone: Start: 05-22-2019 End: 05-22-2019 Pain assessment documented as positive - follow-up documented Jarvis Kendall MD Work Phone: Start: 05-22-2019 End: 05-22-2019 Pt tobacco screen rcvd tlk Jarvis Kendall MD Work Phone: Start: 05-22-2019 End: 05-22-2019 Radex hip unilateral with pelvis 2-3 views Jarvis Kendall MD Work Phone: Start: 05-16-2019 Ct lower extremity w /o contrast material Elizabeth Moura MD Work Phone: Start: 08-21-2018 Microscopic examinat ion of blood, culture Comment on above: Order Comment: Speci men Source Comment:Blood Performed By: #### H EMDF, PT, BMP3M, PHOS3, MG3, CK3 #### [employer] [address] [place], [place] #### [id number] #### [employer] [address] [place] [address] Start: 07-27-2018 Microscopic examinat ion of blood, culture Comment on above: Order Comment: Speci men Source Comment:Blood Performed By: #### H EMDF, PT, BMP3M, PHOS3, MG3, CK3 #### [employer] [facility] [address] [place], [place] #### [id number] #### [employer] [address] [place] [address] Start: 07-19-2018 Microscopic examinat ion of blood, culture Comment on above: Order Comment: Speci men Source Comment:Blood Performed By: #### H EMDF, PT, BMP3M, PHOS3, MG3, CK3 #### [facility] [address] [facility] [place] [place] [address] #### [id number] #### [facility] [address] [place] [address] Start: 01-02-2003 CONVERTED SURGICAL PATHOLOGY Benimargarita Vera Work Phone: Urine culture NEGATED: Highlighted rowStart: 05-22-2019 End: 05-22-2019 Documentation of current medications Ana Stevenson LPN NEGATED: Highlighted rowStart: 05-22-2019 End: 05-22-2019 Smoking cessation education Ana Stevenson LPN Plan of Treatment Date Care Activity Detail Author Start: 2032 RSV Immunization for Adults (1 - 1-dose 75+ series) RSV Immunization for Adults (1 - 1-dose 75+ series) [facility] Start: 01-10-2027 DTaP/Tdap/Td vaccine (2 - Td or Tdap) DTaP/Tdap/Td vaccine (2 - Td or Tdap) [facility] Start: 01-10-2027 DTaP/Tdap/Td vaccine (2 - Td) DTaP/Tdap/Td vaccine (2 - Td) [facility] Work Phone: Start: 01-10-2027 DTaP/Tdap/Td Vaccine s (2 - Td or Tdap) DTaP/Tdap/Td Vaccines (2 - Td or Tdap) [facility] Start: 12-30-2024 Influenza vaccination Influenz a Vaccine (Season Ended) [facility] Start: 03-22-2024 Diabetes mellitus screening Diabetes Screening [facility] Start: 12-31-2023 COVID-19 Vaccine ( season) COVID-19 Vaccine ( season) [facility] Start: 12-31-2023 COVID-19 Vaccine ( season) COVID-19 Vaccine ( season) [facility] Start: 12-31-2023 COVID-19 Vaccine ( season) COVID-19 Vaccine ( season) [facility] Start: 12-31-2023 Influenza vaccination S [facility] Start: 01-30-2023 Bacteria identified in Urine by Culture Urine Culture [facility] Start: 01-30-2023 [facility] Start: 12-30-2022 COVID-19 Vaccine ( season) COVID-19 Vaccine ( season) [facility] Start: 2022 Pneumococcal 0-64 ye ars Vaccine (2 of 2 - PPSV23) Pneumococcal 0-64 years Vaccine (2 of 2 - PPSV23) [facility] Start: 2022 Pneumococcal 0-64 ye ars Vaccine (2 of 2) Pneumococcal 0-64 years Vaccine (2 of 2) [facility] Work Phone: Start: 2022 Pneumococcal Vaccine : 65+ Years (2 of 2 - PCV) Pneumococcal Vaccine: 65+ Years (2 of 2 - PCV) [facility] Start: 12-30-2021 Influenza vaccination Influenza Vacc ine (#1) [facility] Start: 12-30-2020 Influenza vaccination S [facility] Start: 12-31-2019 Influenza vaccination Flu vaccine (# 1) [facility] Work Phone: Start: 08-18-2019 A1C test (Diabetic o r Prediabetic) A1C test (Diabetic or Prediabetic) [facility] Work Phone: Start: 08-18-2019 HbA1c (Bld) [Mass fraction] A1C test (Diabetic or Prediabetic) [facility] Work Phone: Start: 08-18-2019 Hemoglobin A1c measurement A1C test (Diabetic or Prediabetic) [facility] Start: 05-22-2019 End: 05-22-2019 Appointment Appointment [facility] Work Phone: Start: 02-07-2019 Lipid panel Lipid screen [facility] Start: 02-07-2019 Lipid screen Lipid screen [facility] Work Phone: Start: 12-30-2018 Influenza vaccination Flu vaccine (# 1) [facility] Work Phone: Start: 01-10-2018 Pneumococcal Vaccine : 50+ Years (2 of 2 - PCV) Pneumococcal Vaccine: 50+ Years (2 of 2 - PCV) [facility] Start: 01-10-2018 Pneumococcal Vaccine : 65+ Years (2 - PCV) Pneumococcal Vaccine: 65+ Years (2 - PCV) [facility] Start: 2017 RSV Immunization age d 60 or older (1 - 1-dose 60+ series) RSV Immunization aged 60 or older (1 - 1-dose 60+ series) [facility] Start: 2007 Colon cancer screen colonoscopy Colon cancer screen colonoscopy [facility] Work Phone: Start: 2007 Screening for malign ant neoplasm of colon Colon cancer screen colonoscopy [facility] Work Phone: Start: 2007 Shingles Vaccine (1 of 2) Shingles Vaccine (1 of 2) [facility] Start: 2007 Zoster Vaccines (1 o f 2) Zoster Vaccines (1 of 2) [facility] Start: 2002 Screening for malign ant neoplasm of colon Colon cancer screen colonoscopy [facility] Start: 1976 Hepatitis A Vaccines (1 of 2 - Risk 2-dose series) Hepatitis A Vaccines (1 of 2 - Risk 2-dose series) [facility] Start: 1975 Hepatitis C screening Hepatitis C Sc reening [facility] Start: 1969 COVID-19 Vaccine (1) COVID-19 Vaccin e (1) [facility] Start: 1969 Depression Monitoring Depression Mon [facility] Start: 1969 Depression Screen Depression Screen [facility] Start: 1962 COVID-19 Vaccine (1) COVID-19 Vaccin e (1) [facility] Start: 1957 COVID-19 Vaccine (#1) COVID-19 Vacci ne (#1) [facility] Start: 1957 Annual wellness visit Medicare Initial Physical (IPPE) [facility] Start: 1957 Hepatitis B Vaccines (1 of 3 - 3-dose series) Hepatitis B Vaccines (1 of 3 - 3-dose series) [facility] Start: 1957 Lipid panel Lipid Panel [facility] Start: 1957 Screening for malign ant neoplasm of colon [facility] Basic metabolic 2000 panel - Serum or Plasma Basic Metabolic Panel Lab Routine Daily until discontinued starting 03/23/2021, 2 completed [facility] Work Phone: Comment on above: Daily until disconti nued starting 03/23/2021, 2 completed CBC W Auto Different ial panel - Blood CBC Auto Differential Lab Routine Daily until discontinued starting 03/23/2021, 2 completed [employer] Work Phone: Comment on above: Daily until disconti nued starting 03/23/2021, 2 completed End: 06-24-2024 CT Chest WO contrast [employer] Work Phone: Comment on above: Once for 1 Occurrenc es starting 06/24/2024 until 06/24/2024 Culture, Blood 2 Culture, Blood 2 Microbiology STAT 03/19/2021 6:26 PM EST [employer] Work Phone: End: 03-20-2021 Culture, Respiratory Culture, Respiratory Microbiology Routine One Time for 1 Occurrences starting 03/20/2021 until 03/20/2021 [employer] Work Phone: Comment on above: One Time for 1 Occur rences starting 03/20/2021 until 03/20/2021 EKG 12 Lead EKG 12 Lead ECG STAT 03/18/2021 3:20 PM EST [employer] Work Phone: Feeding Tube Feeding Tube Pro cedures Routine 10/30/2020 2:22 PM EDT [employer] Work Phone: End: 09-22-2020 FL WATER SOLUBLE ENEMA W OR WO KUB FL WATER SOLUBLE ENEMA W OR WO KUB Imaging STAT Once for 1 Occurrences starting 09/22/2020 until 09/22/2020 [employer] Phone: Comment on above: Once for 1 Occurrenc es starting 09/22/2020 until 09/22/2020 End: 03-23-2021 Glucose [Mass/volume] in Serum or Plasma POCT GLUCOSE Point of Care Testing Routine Now Then Every 6hr for 7 Occurrences starting 03/21/2021 until 03/23/2021 [employer] Work Phone: Comment on above: Now Then Every 6hr f or 7 Occurrences starting 03/21/2021 until 03/23/2021 High Frequency Chest Wall Oscillation (HFCWO) High Frequency Chest Wall Oscillation (HFCWO) Respiratory Care Routine 0800,1999 (respiratory use only) until discontinued starting 03/22/2021 [facility] Work Phone: Comment on above: 0800,1999 (respirato ry use only) until discontinued starting 03/22/2021 End: 03-20-2021 Legionella Antigen, Urine Legionella Antigen, Urine Microbiology Routine One Time for 1 Occurrences starting 03/20/2021 until 03/20/2021 [employer] Work Phone: Comment on above: One Time for 1 Occur rences starting 03/20/2021 until 03/20/2021 Microscopic examinat ion of blood, culture Culture, Blood Microbiology STAT 03/19/2021 6:26 PM EST [employer] Work Phone: End: 03-20-2021 Microscopic observation [Identifier] in Unspecified specimen by Gram stain Gram Stain Microbiology Routine Once for 1 Occurrences starting 03/20/2021 until 03/20/2021 [employer] Work Phone: Comment on above: Once for 1 Occurrenc es starting 03/20/2021 until 03/20/2021 Oxygen therapy [[facility] Data Set] Initiate Oxygen Therapy Protocol Respiratory Care Routine Daily until discontinued starting 03/20/2021 [employer] Work Phone: Comment on above: Daily until disconti nued starting 03/20/2021 Patient Education \cps-sql1\CPS_ PtEducati on\CDC_FALL_PREVENTION. pdf, \cps-sql1\CPS_PtEducati on\quitting_smoking_032 [id number].pdf [facility] Work Phone: RT Communication Order RT Commun ication Order Respiratory Care STAT Daily until discontinued starting 03/18/2021 [employer] Work Phone: Comment on above: Daily until disconti nued starting 03/18/2021 RT Communication Order RT Commun ication Order Respiratory Care Routine Daily until discontinued starting 03/20/2021 [employer] Work Phone: Comment on above: Daily until disconti nued starting 03/20/2021 End: 03-20-2021 STREP PNEUMONIAE ANTIGEN STREP PNEUMONIAE ANTIGEN Microbiology Routine One Time for 1 Occurrences starting 03/20/2021 until 03/20/2021 [employer] Work Phone: Comment on above: One Time for 1 Occur rences starting 03/20/2021 until 03/20/2021 End: 03-18-2021 Urinalysis Urinalysis Lab STAT One Time for 1 Occurrences starting 03/18/2021 until 03/18/2021 [facility] Work Phone: Comment on above: One Time for 1 Occur rences starting 03/18/2021 until 03/18/2021 End: 03-18-2021 Urine Drug Screen Urine Drug Screen Lab STAT One Time for 1 Occurrences starting 03/18/2021 until 03/18/2021 [facility] Work Phone: Comment on above: One Time for 1 Occur rences starting 03/18/2021 until 03/18/2021 End: 09-22-2020 XR ABDOMEN (KUB) (SINGLE AP VIEW) XR ABDOMEN (KUB) (SINGLE AP VIEW) Imaging Routine Once for 1 Occurrences starting 09/22/2020 until 09/22/2020 [facility] Work Phone: Comment on above: Once for 1 Occurrenc es starting 09/22/2020 until 09/22/2020 Immunizations Immunization Date Immunization Notes Care Provider Fa [facility] 02-02-2021 influenza virus vacc ine, unspecified formulation Rashaad Smith [employer] Work Phone: [facility] 01-10-2017 pneumococcal polysaccharide vaccine, 23 valent Elizabeth Moura MD Work Phone: [facility] 01-10-2017 tetanus toxoid, redu delia diphtheria toxoid, and acellular pertussis vaccine, adsorbed Elizabeth Moura MD Work Phone: [facility] Work Phone: Payers Date Payer Category Payer Self-pay [id number] 2019 Medicaid [id number] 2019 Medicaid [id number]. [id number] 2018 Private Health Insurance [id number]. [id number] 2018 Private Health Insurance [facility] xxxxxxxxx 2018-Present [phone] [address] [place] [address] xxxxxxxxx [id number]. [id number] 1955 Unknown [id number] 2.840.1.192887.3.579.2. 668 1955 Unknown [id number] 2.840.1.047709.3.579.2. 668 Private Health Insurance Unknown [id number] 2.840.1.215380.3.579.2. 462 Unknown [id number] 2.840.1.324737.3.579.2. 462 Unknown [id number] 2.840.1.596178.3.579.2. 462 Unknown [id number] 2.840.1.000063.3.579.2. 462 Unknown [id number] .840.1.523226.3.579.2. 462 Unknown [id number] 2.840.1.919990.3.579.2. 462 Unknown [id number] 2.16840.1.547573.3.579.2. 462 Unknown [id number] 2.16840.1.088343.3.579.2. 462 Unknown [id number] 2.840.1.767128.3.579.2. 462 Unknown [id number] 2.840.1.356926.3.579.2. 462 Unknown [id number] 2.840.1.650719.3.579.2. 462 Unknown [id number] 2.16.840.1.778925.3.579.2. 462 Unknown [id number] 2.16.840.1.120506.3.579.2. 462 Unknown [id number] 2.16.840.1.372156.3.579.2. 462 Unknown [id number] 2.16.840.1.716086.3.579.2. 462 Unknown [id number] 2.16.840.1.346022.3.579.2. 462 Unknown [id number] 2.16.840.1.782097.3.579.2. 462 Unknown [id number] 2.840.1.065546.3.579.2. 462 Unknown [id number] 2.840.1.926687.3.579.2. 462 Unknown [id number] 2.840.1.637295.3.579.2. 462 Unknown [id number] 2.840.1.365414.3.579.2. 462 Unknown [id number] 2.16.840.1.157734.3.579.2. 462 Unknown [id number] 2.16840.1.085471.3.579.2. 462 Unknown [id number] 2.16840.1.987077.3.579.2. 462 Unknown [id number] 2.840.1.391266.3.579.2. 462 Unknown [id number] 2.16.840.1.077498.3.579.2. 462 Unknown [id number] 2.16.840.1.654172.3.579.2. 462 Unknown [id number] 2.16.840.1.205056.3.579.2. 462 Unknown [id number] 2.16.840.1.514672.3.579.2. 462 Unknown [id number] 2.16.840.1.536091.3.579.2. 462 Unknown [id number] 2.16.840.1.442801.3.579.2. 462 Unknown [id number] 2.16840.1.601239.3.579.2. 462 Unknown [id number] 2.16840.1.367642.3.579.2. 462 Unknown [id number] 2.840.1.537579.3.579.2. 462 Unknown [id number] 2.840.1.078331.3.579.2. 462 Unknown [id number] 2.840.1.795357.3.579.2. 462 Unknown [id number] 2.840.1.603660.3.579.2. 462 Unknown [id number] 2.840.1.023014.3.579.2. 462 Unknown [id number] 2.840.1.994568.3.579.2. 462 Unknown [id number] 2.840.1.819840.3.579.2. 462 Unknown [id number] 2.840.1.309774.3.579.2. 462 Unknown [id number] 2.840.1.552543.3.579.2. 462 Unknown [id number] 2.840.1.466237.3.579.2. 462 Unknown [id number] .840.1.672670.3.579.2. 462 Unknown [id number] 2.840.1.809463.3.579.2. 462 Unknown [id number] 2.840.1.509061.3.579.2. 462 Unknown [id number] 2.840.1.048633.3.579.2. 462 Unknown [id number] 2.840.1.514776.3.579.2. 462 Unknown [id number] 2.16.840.1.993868.3.579.2. 462 Unknown [id number] 2.16.840.1.491572.3.579.2. 462 Unknown [id number] 2.16.840.1.806531.3.579.2. 462 Unknown [id number] 2.16.840.1.274506.3.579.2. 462 Unknown [id number] 2.16.840.1.795685.3.579.2. 462 Unknown [id number] 2.16.840.1.279151.3.579.2. 462 Unknown [id number] 2.16.840.1.794170.3.579.2. 462 Unknown [id number] 2.16.840.1.728693.3.579.2. 462 Unknown [id number] 2.16.840.1.478942.3.579.2. 462 Unknown [id number] 2.16.840.1.010356.3.579.2. 462 Unknown [id number] 2.16.840.1.535732.3.579.2. 462 Social History Date Type Detail Facility Tobacco smoking status IDIS Unknown if ever smoked [facility] Work Phone: Start: 1955 Sex Assigned At Not on file [employer] Work Phone: Start: 11-05-2018 End: 06-26-2020 Tobacco smoking status NHIS Former smoker [employer] Phone: End: 02-06-2016 History of tobacco use Current smoker [employer] Phone: End: 02-06-2016 History of tobacco use Cigar Smoker [employer] Phone: Start: 02-05-2018 End: 06-26-2020 Tobacco use and exposure Never used [employer] Phone: Start: 06-26-2020 End: 05-20-2022 Alcohol intake Current drinker of alcohol (finding) [facility] Work Phone: Start: 07-08-2018 Alcohol Comment 2 times per wo rk, occasionally liquor [facility] Work Phone: Start: 05-10-2022 End: 05-20-2022 Exposure to SARS-CoV-2 (event) Not sure [facility] Work Phone: Start: 09-22-2020 End: 05-20-2022 Alcohol intake [facility] Start: 1955 Sex Assigned At Male [facility] End: 02-06-2016 History of tobacco use Cigarette Smoker [facility] [employer] Start: 05-20-2022 End: 10-02-2023 Tobacco use panel [facility] How often to you have a drink containing alcohol? Never [facility] How many standard drinks containing alcohol do you have on a typical day? Patient does not drink [facility] Start: 11-29-2021 End: 08-16-2024 Sex Male (finding) [facility] Tobacco smoking status NHIS Unknown if ever smoked [facility] Work Phone: NEGATED: Highlighted rowStart: 05-22-2019 End: 05-22-2019 Alcohol use Alcohol use [facility] Work Phone: NEGATED: Highlighted rowStart: 05-22-2019 End: 05-22-2019 Assertion Current some day smoker [facility] Work Phone: NEGATED: Highlighted rowStart: 05-22-2019 End: 05-22-2019 Details of drug misuse behavior Details of drug misuse behavior [facility] Work Phone: NEGATED: Highlighted rowStart: 05-22-2019 End: 05-22-2019 Tobacco use and exposure Tobacco use and exposure [facility] Work Phone: Clinical Notes 03-18-2021 to 05-03-2024 Telephone Encounter - Aravind Wallace - 05/03/2024 5:29 PM ESTTelephone Encounter - Aravind Wallace - 05/03/2024 5:29 PM ZACHARY Baptiste - 11/22/2023 11:30 AM EDTDischarge Instr - CHRIS Note Date & Type Note Facility 05-03-2024 Telephone encounter Note Gissel is calling to let Dr. Burgos know that the medication he prescribed he not certified, she is going to fax the information to the office. [phone] [facility] 05-03-2024 Miscellaneous Notes Gissel is calling to let Dr. Burgos know that the medication he prescribed he not certified, she is going to fax the information to the office. [phone] documented in this encounter [facility] 11-22-2023 History of Presen t illness Narrative Images from the original note were not included. Speech-Language Pathology SPEECH LANGUAGE PATHOLOGY [facility] Modified Barium Swallow Study Patient Name: Kathya Hooper Evaluation Date: 11/22/2023 Date of : 1955 Admission Date: 11/22/2023 11:30 AM Age: 68 y.o. Room/Bed: Room/bed info not found IMPRESSION: The patient presents with mild oral phase dysphagia associated with reduced oral bolus control. There is moderate - marked pharyngeal phase dysphagia associated with and base of tongue weakness, pharyngeal wall weakness, incomplete epiglottic deflection, cervical osteophytes, and reduced hyoid trajectory. +vocal cord penetration with thin, mildly thick and pudding textures. Trace to mild accumulation/aspiration and anterior tracheal coating. Cough response to initial vocal cord penetration. Cued cough to attempt clearing aspiration without success. RECOMMENDATION: (pt verbalized desire to continue po intake) Recommend NPO but if continue po for comfort and pleasure-Puree with thin liquid and meds non-oral and the following precautions: - Upright positioning for all PO intake - Slow rate of intake - Small bites/sips - No straws - Alternate solid and liquids - Consistent mouth care - Multiple swallow and alternate liquids after solids. --Monitor for clinical s/s aspiration pneumonia Penetration-Aspiration Scale: 7. Contrast enters the airway, crosses the plane of the vocal folds, and is not ejected from the airway despite effort. Pt may benefit from skilled COMFORT ADVISOR services to address: Anterior hyoid movement (difficult d/t cervical fusion C2-C6; pressure generation, cough strengthening (EMST). Frequency: Per treating COMFORT ADVISOR Barriers: large osteophytes, bridging with anterior projection to posterior pharyngeal wall C2-C6 (restricting epiglottic deflection) Prognosis: fair D/C Recommendations: Ongoing ST at current level of care. General Initial MBS completed to assess the efficiency of his swallow function, rule out aspiration, and make recommendations regarding safe dietary consistencies, effective compensatory strategies, and safe eating environment. Subjective: Radiologist: Dr. Nir Cancino/IONA Jang Prior MBSS?: No, unable to locate in [facility] Current Diet: Puree diet with ?liquid (no information from [place]) Textures tested: - thin liquid, (cup edge) - mildly thick liquid, (cup edge) - puree, (teaspoon) Patient position: lateral Past Medical History: Past Medical History: Diagnosis Date TREVER (acute kidney injury) ([facility] ([facility]) Alcohol abuse 07/08/2018 Anxiety C1 spinal cord injury ([facility]) ([facility]) Depression Fall 06/2018 Schizophrenia ([facility]) Past Surgical History: Past Surgical History: Procedure Laterality Date CERVICAL FUSION 07/09/2014 C2-6 cervical fusion GASTROSTOMY TUBE PLACEMENT 07/13/2018 TRACHEOSTOMY 07/13/2018 Admission Diagnosis: Patient Active Problem List Diagnosis Date Noted Respiratory syncytial virus (RSV) 03/22/2021 Hypoxia 03/19/2021 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[facility]) ([facility]) 08/16/2018 Chronic latent schizophrenia ([facility]) 08/15/2018 Prolonged Q-T interval on ECG 08/15/2018 Abdominal wall abscess 08/15/2018 Central cord syndrome ([facility]) ([facility]) 08/15/2018 Respiratory failure after trauma ([facility]) 08/15/2018 Pressure ulcer of sacral region, stage 2 ([facility]) 08/09/2018 Urinary retention 07/28/2018 Acute respiratory failure with hypoxia ([facility]) 07/26/2018 Mild bibasilar atelectasis 07/26/2018 Hospital-acquired pneumonia 07/26/2018 Bilateral pleural effusion 07/26/2018 Ileus ([facility]) ([facility]) 07/23/2018 TREVER (acute kidney injury) ([facility]) 07/23/2018 Hypokalemia 07/21/2018 Vertebral artery occlusion, bilateral 07/11/2018 Vitamin D insufficiency 07/10/2018 Alcohol abuse 07/08/2018 Closed wedge compression fracture of first thoracic vertebra ([facility]) 07/08/2018 Traumatic nondisp spondylolisthesis of C3 vertebra with closed fx, initial encounter ([facility]) 07/08/2018 Closed fracture dislocation of cervical spine ([facility]) 07/08/2018 Pain: Pt denies any current pain. Reason for current admission: Pt with h/o of PEG and trach from 2019. Pt is currently decannulated. 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 Noted very large connective osteophytes on the cervical spine that correlates with fusion. Oral Phase Very mild oral deficits with mild spillage to the vallecula prior to swallowing. No significant oral residuals after the swallow noted. Coating of base of tongue only noted. Pharyngeal Phase Pt without full epiglottic deflection, poor anterior trajectory of hyoid, reduced pressure generation and pharyngeal clearing (suspect some reduction in base of tongue and pharyngeal wall constriction d/t residuals). Mild to moderate residuals remain after swallow in vallecula and severe-marked in piriform-with liquids (thin,mildly thick); pt is able to clear to mild amount after re-swallows. +vocal cord penetration due to posterior spillage of residuals into laryngeal vestibule with intermittent mild amount of aspiration and tracheal staining. Severe to marked vallecular and mild to moderate piriform residuals after pudding. Multiple re-swallows to clear residuals with attempt for liquids chaser to reduce pharyngeal residuals with pudding (some clearing of piriform sinuses with liquids chasers however continue trace airway compromise with slight darkening of anterior trachea-further aspiration) Continue trace amounts of vocal cord penetration of residuals. Cough with initial vocal cord penetration. Cue cough to attempt to clear airway of aspiration without success. Inability to completely clear pharyngeal secretions. Pt is at high risk for aspiration pneumonia. Strategies: re-swallow (clears and reduce piriform, not vallecula), liquid chaser (reduce residuals, especially in piriform-but continue vocal cord penetration and anterior tracheal staining), Effortful swallow (no various from re-swallow). Expectoration, clear a little. Esophageal Phase The esophagus was not visualized below the level of the UES. Noted: N/A Education The preliminary results of this evaluation were briefly shared with the patient. Concern of eating and aspiration. Pt voiced desire to eat food and not rely on the PEG. Goals Patient Stated Goal: To be able to eat by mouth. Therapy Time COMFORT ADVISOR Individual Minutes Time In: 1150 Time Out: 1215 Minutes: 25 ZACHARY Sun documented in this encounter [facility] 10-02-2023 Emergency department Note [facility] at bedside at this time Mami Lantigua RN 10/02/23 1427 [facility] 10-02-2023 Emergency department Note [facility] at bedside at this time Mami Lantigua RN 10/02/23 1427 This RN gave report to Marnie at [facility] at this time Mami Lantigua RN 10/02/23 1358 This RN went to evaluate patient, was on 2L o2 and does not wear at baseline, plan is dc, this RN turned o2 off to trial patient, spo2 monitor on Mami Lantigua RN 10/02/[address] cart Eloisa Alfaro RN 10/02/23 [address] [facility] ED Patient: Kathya Hooper : 1955 Date of Evaluation: 10/02/2023 ED Supervising Physician: Fei Farooq MD I personally saw Kathya Hooper and made/approved the management plan and take responsibility for the patient management. In brief, Kathya Hooper is a 68 y.o. that presents to the emergency department for evaluation of altered mental status. Patient sent in with concerns for possible facial droop. Patient states that he is a little bit confused. But when asked about this patient states that that is been an ongoing problem for about 8 months and he has not noticed it being significantly worse. Denies any headache blurry vision double vision hearing changes nausea vomiting chest pain shortness of breath. Denies numbness tingling weakness in the extremities. Focused exam: General appearance: Well-appearing, no acute distress. Psych: Awake alert and oriented 3. Pleasant and cooperative. Skin: Warm and dry. Neck: Supple. Cardiovascular: Mild tachycardia with regular rhythm Lungs: Clear to auscultation bilaterally, no accessory muscle use, tachypnea, or retractions. Abdomen: Soft, nontender, and nondistended, no rebound, rigidity, or guarding, positive bowel sounds 4 quadrants. Extremities: Warm and well perfused. NROM and SILT throughout upper and lower extermities. Neuro: Cranial nerves II-XII grossly intact. Normal strength and sensation throughout upper and lower extremities. No pronator drift. No focal neurological deficit. NIH 1 for mild right facial droop Brief ED course/MDM: Patient presents emergency department with question of possible facial droop. Patient's last known well was 4 he went to bed overnight. Patient is not a TNK candidate for this reason. Patient does not have signs on examination that would be concerning for a large vessel occlusion. Diagnostics interpreted by me: CT scan(s) no intracranial hemorrhage EMERGENCY DEPARTMENT COURSE and DIFFERENTIAL DIAGNOSIS/MDM: Vitals: Vitals: 10/02/23 0947 10/02/23 1113 BP: 109/61 99/60 BP Location: Left arm Pulse: 109 103 Resp: 16 16 Temp: 36.7 C (98 F) TempSrc: Oral SpO2: 95% 95% Weight: 92.5 kg (204 lb) All diagnostic, treatment, and disposition decisions were made by myself in conjunction with the YANET/Resident. I also supervised dotson portions of any procedures performed by the YANET/Resident. For all further details of the patient's emergency department visit, please see their documentation. This will serve as my supervisory note and shared attestation. I did perform a substantiative portion of the visit including all aspects of the medical decision making. (Please note that portions of this note may have been completed with a voice recognition program. Efforts were made to edit the dictations but occasionally words are mis-transcribed.) Fei Farooq MD Acute Care [facility] Fei Farooq MD 10/02/23 8020 Pt was brought in via [facility] from [facility] for Left sided facial droop. Per EMS nurse is new and does not know patient very well but he is A&O x 2 at baseline. Per EMS the nurse states it was 20 mins ago. Contacted nurse that was caring for him and she states that was the first time she has seen him for that day, rn shift mgr did not report any problems. EMS states stroke scale was negative but he has breathing problems so he was given a duoneb and placed on 4L NC. Upon arrival pt is alert and oriented x 3. Pt is leaving his mouth open but is able to close it, he states he doesn't know when this started. Pt has no complaints at this time. Pt walks with a cane at the facility. Hx of schizophrenia. BS 131. documented in this encounter [facility] 10-02-2023 Emergency department Note This RN gave report to Marnie at [facility] at this time Mami Lantigua RN 10/02/23 2946 [facility] 10-02-2023 Emergency department Note This RN went to evaluate patient, was on 2L o2 and does not wear at baseline, plan is dc, this RN turned o2 off to trial patient, spo2 monitor on Mami Lantigua RN 10/02/23 1325 [facility] 10-02-2023 Emergency department Note Pt to ct via cart Eloisa Alfaro RN 10/02/23 1043 [facility] 10-02-2023 Emergency department Triage note Pt was brought in via [facility] from [facility] for Left sided facial droop. Per EMS nurse is new and does not know patient very well but he is A&O x 2 at baseline. Per EMS the nurse states it was 20 mins ago. Contacted nurse that was caring for him and she states that was the first time she has seen him for that day, rn shift mgr did not report any problems. EMS states stroke scale was negative but he has breathing problems so he was given a duoneb and placed on 4L NC. Upon arrival pt is alert and oriented x 3. Pt is leaving his mouth open but is able to close it, he states he doesn't know when this started. Pt has no complaints at this time. Pt walks with a cane at the facility. Hx of schizophrenia. BS 131. [facility] 10-02-2023 Physician Emergency department Note Emergency Department Encounter [facility] ED Patient: Kathya Hooper : 1955 Date of Evaluation: 10/02/2023 ED Supervising Physician: Fei Farooq MD I personally saw Kathya Hooper and made/approved the management plan and take responsibility for the patient management. In brief, Kathya Hooper is a 68 y.o. that presents to the emergency department for evaluation of altered mental status. Patient sent in with concerns for possible facial droop. Patient states that he is a little bit confused. But when asked about this patient states that that is been an ongoing problem for about 8 months and he has not noticed it being significantly worse. Denies any headache blurry vision double vision hearing changes nausea vomiting chest pain shortness of breath. Denies numbness tingling weakness in the extremities. Focused exam: General appearance: Well-appearing, no acute distress. Psych: Awake alert and oriented 3. Pleasant and cooperative. Skin: Warm and dry. Neck: Supple. Cardiovascular: Mild tachycardia with regular rhythm Lungs: Clear to auscultation bilaterally, no accessory muscle use, tachypnea, or retractions. Abdomen: Soft, nontender, and nondistended, no rebound, rigidity, or guarding, positive bowel sounds 4 quadrants. Extremities: Warm and well perfused. NROM and SILT throughout upper and lower extermities. Neuro: Cranial nerves II-XII grossly intact. Normal strength and sensation throughout upper and lower extremities. No pronator drift. No focal neurological deficit. NIH 1 for mild right facial droop Brief ED course/MDM: Patient presents emergency department with question of possible facial droop. Patient's last known well was 4 he went to bed overnight. Patient is not a TNK candidate for this reason. Patient does not have signs on examination that would be concerning for a large vessel occlusion. Diagnostics interpreted by me: CT scan(s) no intracranial hemorrhage EMERGENCY DEPARTMENT COURSE and DIFFERENTIAL DIAGNOSIS/MDM: Vitals: Vitals: 10/02/23 0947 10/02/23 1113 BP: 109/61 99/60 BP Location: Left arm Pulse: 109 103 Resp: 16 16 Temp: 36.7 C (98 F) TempSrc: Oral SpO2: 95% 95% Weight: 92.5 kg (204 lb) All diagnostic, treatment, and disposition decisions were made by myself in conjunction with the YANET/Resident. I also supervised dotson portions of any procedures performed by the YANET/Resident. For all further details of the patient's emergency department visit, please see their documentation. This will serve as my supervisory note and shared attestation. I did perform a substantiative portion of the visit including all aspects of the medical decision making. (Please note that portions of this note may have been completed with a voice recognition program. Efforts were made to edit the dictations but occasionally words are mis-transcribed.) Fei Farooq MD Acute Care [facility] Fei Farooq MD 10/02/23 1129 [employer] Work Phone: 05-20-2022 Emergency department Note Report called to custodial. Copy of Xray report sent with discharge packet Gary Ghosh RN 05/20/222007 [employer] 05-20-2022 Emergency department Note Report called to custodial. Copy of Xray report sent with discharge packet Gary Ghosh RN 05/20/222007 Emergency Department Encounter [facility] ED Patient: Kathya Hooper : 1955 Date of Evaluation: 05/20/2022 ED Supervising Physician: Abelardo Rios DO I independently examined and evaluated Kathya Hooper. This will serve as my Supervisory note as the department clinician of record and shared attestation. I did perform a substantive portion of the visit including all aspects of the Medical Decision Making. I wore appropriate PPE for the entirety of this encounter. In brief, Kathya Hooper is a 67 y.o. male that presents to the emergency department after his G-tube fell out today at the custodial. Upon inspection of the G-tube, it appears small was deflated somehow. Patient with no complaints. Patient thinks it was placed around 1 year ago. Focused exam: Alert and oriented 4, no acute distress, nontoxic appearing, Pulm: clear to auscultation bilaterally, Cardiac: regular rate and rhythm, Abdomen: soft nontender, ostomy site appears clean dry and intact, Neuro: no focal motor or sensory deficits. Brief ED course/MDM: Patient presents for G-tube replacement. It appears the bulb deflated on his old tube which fell out today at the custodial. Tube was easily replaced in the emergency room. Will order KUB with dye study to confirm placement and discharge back to the custodial. X-ray confirms due to position within the stomach. Will discharge back to his facility. Labs Reviewed - No data to display XR abdomen 1 view Final Result G-tube position is within the stomach. No evidence of contrast extravasation. Report Dictated on Electronically Signed By: Jason Tran Electronically Signed Date/Time: 05/20/2022 7:38 PM EST Critical care time: 0 All diagnostic, treatment, and disposition decisions were made by myself in conjunction with the Resident. I also supervised dotson portions of any procedures performed by the Resident. For all further details of the patient's emergency department visit, please see their documentation. (Comment: Please note this report has been produced using speech recognition software and may contain errors related to that system including errors in grammar, punctuation, and spelling, as well as words and phrases that may be inappropriate. If there are any questions or concerns please feel free to contact the dictating provider for clarification.) Abelardo Rios DO [employer] Abelardo Rois DO 05/20/222014 documented in this encounter [facility] 05-20-2022 Miscellaneous Notes Associated Order(s): Feeding Tube Replacement Procedure Feeding Tube Replacement Performed by: Dejah Hazel DO Authorized by: Abelardo Rios DO Consent: Consent obtained: Verbal Consent given by: Patient [place] protocol: Patient identity confirmed: Verbally with patient Pre-procedure details: Old tube size: 18 Fr Sedation: Sedation type: None Anesthesia: Anesthesia method: None Procedure details: Patient position: Supine Procedure type: Replacement Tube type: Gastrostomy Tube size: 18 Fr Bulb inflation volume: 15 ml Bulb inflation fluid: Sterile water Post-procedure details: Placement/position confirmation: X-ray Placement difficulty: None Bleeding: None Procedure completion: Tolerated well, no immediate complications Dejah Hazel DO Resident 05/20/221931 documented in this encounter [facility] 05-20-2022 Note Associated Order(s): Feeding Tube Replacement Procedure Feeding Tube Replacement Performed by: Dejah Hazel DO Authorized by: Abelardo Rios DO Consent: Consent obtained: Verbal Consent given by: Patient [place] protocol: Patient identity confirmed: Verbally with patient Pre-procedure details: Old tube size: 18 Fr Sedation: Sedation type: None Anesthesia: Anesthesia method: None Procedure details: Patient position: Supine Procedure type: Replacement Tube type: Gastrostomy Tube size: 18 Fr Bulb inflation volume: 15 ml Bulb inflation fluid: Sterile water Post-procedure details: Placement/position confirmation: X-ray Placement difficulty: None Bleeding: None Procedure completion: Tolerated well, no immediate complications Dejah Hazel DO Resident 05/20/221931 [employer] Phone: 05-20-2022 Note Associated Order(s): Feeding Tube Replacement Procedure Feeding Tube Replacement Performed by: Dejah Hazel DO Authorized by: Abelardo Rios DO Consent: Consent obtained: Verbal Consent given by: Patient [place] protocol: Patient identity confirmed: Verbally with patient Pre-procedure details: Old tube size: 18 Fr Sedation: Sedation type: None Anesthesia: Anesthesia method: None Procedure details: Patient position: Supine Procedure type: Replacement Tube type: Gastrostomy Tube size: 18 Fr Bulb inflation volume: 15 ml Bulb inflation fluid: Sterile water Post-procedure details: Placement/position confirmation: X-ray Placement difficulty: None Bleeding: None Procedure completion: Tolerated well, no immediate complications Dejah Hazel DO Resident 05/20/221931 [employer] Phone: 05-20-2022 Physician Emergency department Note Emergency Department Encounter [facility] ED Patient: Kathya Hooper : 1955 Date of Evaluation: 05/20/2022 ED Supervising Physician: Abelardo Rios DO I independently examined and evaluated Kathya Hooper. This will serve as my Supervisory note as the department clinician of record and shared attestation. I did perform a substantive portion of the visit including all aspects of the Medical Decision Making. I wore appropriate PPE for the entirety of this encounter. In brief, Kathya Hooper is a 67 y.o. male that presents to the emergency department after his G-tube fell out today at the custodial. Upon inspection of the G-tube, it appears small was deflated somehow. Patient with no complaints. Patient thinks it was placed around 1 year ago. Focused exam: Alert and oriented 4, no acute distress, nontoxic appearing, Pulm: clear to auscultation bilaterally, Cardiac: regular rate and rhythm, Abdomen: soft nontender, ostomy site appears clean dry and intact, Neuro: no focal motor or sensory deficits. Brief ED course/MDM: Patient presents for G-tube replacement. It appears the bulb deflated on his old tube which fell out today at the custodial. Tube was easily replaced in the emergency room. Will order KUB with dye study to confirm placement and discharge back to the custodial. X-ray confirms due to position within the stomach. Will discharge back to his facility. Labs Reviewed - No data to display XR abdomen 1 view Final Result G-tube position is within the stomach. No evidence of contrast extravasation. Report Dictated on Electronically Signed By: Jason Tran Electronically Signed Date/Time: 05/20/2022 7:38 PM EST Critical care time: 0 All diagnostic, treatment, and disposition decisions were made by myself in conjunction with the Resident. I also supervised dotson portions of any procedures performed by the Resident. For all further details of the patient's emergency department visit, please see their documentation. (Comment: Please note this report has been produced using speech recognition software and may contain errors related to that system including errors in grammar, punctuation, and spelling, as well as words and phrases that may be inappropriate. If there are any questions or concerns please feel free to contact the dictating provider for clarification.) Abelardo Rios DO [employer] Abelardo Rios DO 05/20/222014 [employer] Phone: 03-24-2021 Note Hospitalist Discharg e Summary Kathya Hooper : 1955 Admit date: 03/19/2021 Discharge date: 03/24/21 Admitting Physician: Rafa Michel MD Primary Care Physician: No primary care provider on file. Discharge Diagnosis: Acute hypoxic respiratory failure Patchy infiltrate and Pneumonia. Small left pleural effusion. Schizophrenia Debility Hospital Course: Patient is a 66 years old male admitted with respiratory failure. Was Found to have Pneumonia. Treated with antibiotics. He resides in [facility]. He was stablized and discharged Diet NPO ADULT TUBE FEEDING; PEG; 2.0 Calorie; Cyclic; 75; 6:00 PM; 9:00 AM; 200; Q 4 hours Vitals: BP (!) 85/55 Pulse 85 Temp 97.7 ?F (36.5 ?C) (Temporal) Resp 18 Ht 6' 2.02 (1.88 m) Wt 185 lb 14.4 oz (84.3 kg) Comment: per Nataly RN (bed scale measurement) on 03/20/2021 SpO2 94% BMI 23.86 kg/m? General appearance: alert and cooperative with exam Lungs: clear to auscultation bilaterally Heart: regular rate and rhythm, S1, S2 normal, no murmur, click, rub or gallop Abdomen: soft, non-tender; bowel sounds normal; no masses, no organomegaly Extremities: extremities normal, atraumatic, no cyanosis or edema Neurologic: No obvious focal neurologic deficits. Recent Labs 03/22/21 0020 03/23/21 0348 03/24/21 0448 WBC 13.3* 15.1* 12.8* HGB 12.4* 12.4* 11.7* PLT 158 211 236 Recent Labs 03/23/21 0348 03/24/21 0448 NA 142 142 K 3.9 4.1 CL 110* 112* CO2 24 26 BUN 32* 30* CREATININE 0.47* 0.49* GLUCOSE 143* 103* No results for input(s): AST, ALT, ALB, BILITOT, ALKPHOS in the last 72 hours. Significant Diagnostic Studies: CTA HEAD NECK W WO CONTRAST Result Date: 03/18/2021 Patient Name: KATHYA HOOPER Computed Tomography ACCESSION EXAM DATE/TIME PROCEDURE ORDERING PROVIDER [id number] 03/18/2021 16:26 EST CTA Head/Neck w/ + w/o [id number] alyson ARCHIBALD CPT code 10164 26306 Q9967 Reason For Exam (CTA Head/Neck w/ + w/o contrast) AMS, dysphasia and ?aphasia possibly since yesterday- 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 CTA of the head and neck was performed after the intravenous administration of contrast. 3-D reconstructions were performed. Contrast: 75 mL Isovue-370 nonionic IV contrast. COMPARISON: CTA head and neck 07/09/2018. FINDINGS: CT HEAD: BRAIN PARENCHYMA: No acute intraparenchymal hemorrhage, acute territorial infarct or masses. Ill-defined hypodensity in the right occipital lobe (series 3 image 28 and 29), thought to represent chronic infarct/encephalomalacia. Periventricular and subcortical white matter hypodensities, nonspecific, but likely representing chronic microangiopathic changes. MIDLINE SHIFT OR HERNIATION: No midline shift or herniation. VENTRICLES: No hydrocephalus. DURAL VENOUS SINUSES: No hyperdensity to suggest acute thrombus. EXTRA-AXIAL SPACES (epidural, subdural, subarachnoid spaces and basal cisterns): No collections. VISUALIZED ORBITS: Normal. VISUALIZED PARANASAL SINUSES AND MASTOID AIR CELLS: Paranasal sinuses demonstrate mucosal thickening. Tympanomastoid cavities are aerated. SOFT TISSUES: Normal. CALVARIUM AND SKULL BASE: Normal. Computed Tomography Report CTA NECK: AORTIC ARCH: The visualized portion of the aortic arch is unremarkable in appearance. The origins of the great vessels and the vertebral arteries are normal without evidence of stenosis. CERVICAL CAROTID ARTERIES: The common carotid arteries are patent bilaterally without evidence of stenosis. There is no narrowing of the cervical internal carotid arteries bilaterally. VERTEBRAL ARTERIES: The vertebral arteries are patent bilaterally throughout their course. CTA HEAD: INTERNAL CAROTID ARTERIES: Patent distal internal carotid arteries. CEREBRAL ARTERIES: The proximal anterior, middle and posterior cerebral arteries are patent bilaterally. Left A1 segment is dominant.VERTEBROBASILAR SYSTEM: Normal vertebrobasilar system. Left intradural vertebral artery is dominant. VASCULAR MALFORMATION: No evidence of aneurysm or vascular malformation. OTHER: There are enlarged mediastinal lymph nodes, for instance a right lower paratracheal lymph node measuring up to 2.2 cm. There is also a possible necrotic subcarinal lymph node, partially visualized on the current exam. Status post posterior decompression of C3-C6 with fusion of C2-C6. There is extensive anterior bridging osteophytes which diffusely narrows the aerodigestive tract. There is an anterior osteophyte arising from the anterior arch of C1 which results in severe effacement of the airway at the (more content not included)... [facility] 03-24-2021 Hospital course Narrative Hospitalist Discharge Summary Kathya Hooper : 1955 Admit date: 03/19/2021 Discharge date: 03/24/21 Admitting Physician: Rafa Michel MD Primary Care Physician: No primary care provider on file. Discharge Diagnosis: Acute hypoxic respiratory failure Patchy infiltrate and Pneumonia. Small left pleural effusion. Schizophrenia Debility Hospital Course: Patient is a 66 years old male admitted with respiratory failure. Was Found to have Pneumonia. Treated with antibiotics. He resides in [facility]. He was stablized and discharged Diet NPO ADULT TUBE FEEDING; PEG; 2.0 Calorie; Cyclic; 75; 6:00 PM; 9:00 AM; 200; Q 4 hours Vitals: BP (!) 85/55 Pulse 85 Temp 97.7 F (36.5 C) (Temporal) Resp 18 Ht 6' 2.02 (1.88 m) Wt 185 lb 14.4 oz (84.3 kg) Comment: per Nataly RN (bed scale measurement) on 03/20/2021 SpO2 94% BMI 23.86 kg/m General appearance: alert and cooperative with exam Lungs: clear to auscultation bilaterally Heart: regular rate and rhythm, S1, S2 normal, no murmur, click, rub or gallop Abdomen: soft, non-tender; bowel sounds normal; no masses, no organomegaly Extremities: extremities normal, atraumatic, no cyanosis or edema Neurologic: No obvious focal neurologic deficits. Recent Labs 03/22/21 0020 03/23/21 0348 03/24/21 0448 WBC 13.3* 15.1* 12.8* HGB 12.4* 12.4* 11.7* PLT 158 211 236 Recent Labs 03/23/21 0348 03/24/21 0448 NA 142 142 K 3.9 4.1 CL 110* 112* CO2 24 26 BUN 32* 30* CREATININE 0.47* 0.49* GLUCOSE 143* 103* No results for input(s): AST, ALT, ALB, BILITOT, ALKPHOS in the last 72 hours. Significant Diagnostic Studies: CTA HEAD NECK W WO CONTRAST Result Date: 03/18/2021 Patient Name: KATHYA HOOPER Computed Tomography ACCESSION EXAM DATE/TIME PROCEDURE ORDERING PROVIDER [id number] 03/18/2021 16:26 EST CTA Head/Neck w/ + w/o [id number] alyson ARCHIBALD CPT code 97856 86011 Q9967 Reason For Exam (CTA Head/Neck w/ + w/o contrast) AMS, dysphasia and ?aphasia possibly since yesterday- 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 CTA of the head and neck was performed after the intravenous administration of contrast. 3-D reconstructions were performed. Contrast: 75 mL Isovue-370 nonionic IV contrast. COMPARISON: CTA head and neck 07/09/2018. FINDINGS: CT HEAD: BRAIN PARENCHYMA: No acute intraparenchymal hemorrhage, acute territorial infarct or masses. Ill-defined hypodensity in the right occipital lobe (series 3 image 28 and 29), thought to represent chronic infarct/encephalomalacia. Periventricular and subcortical white matter hypodensities, nonspecific, but likely representing chronic microangiopathic changes. MIDLINE SHIFT OR HERNIATION: No midline shift or herniation. VENTRICLES: No hydrocephalus. DURAL VENOUS SINUSES: No hyperdensity to suggest acute thrombus. EXTRA-AXIAL SPACES (epidural, subdural, subarachnoid spaces and basal cisterns): No collections. VISUALIZED ORBITS: Normal. VISUALIZED PARANASAL SINUSES AND MASTOID AIR CELLS: Paranasal sinuses demonstrate mucosal thickening. Tympanomastoid cavities are aerated. SOFT TISSUES: Normal. CALVARIUM AND SKULL BASE: Normal. Computed Tomography Report CTA NECK: AORTIC ARCH: The visualized portion of the aortic arch is unremarkable in appearance. The origins of the great vessels and the vertebral arteries are normal without evidence of stenosis. CERVICAL CAROTID ARTERIES: The common carotid arteries are patent bilaterally without evidence of stenosis. There is no narrowing of the cervical internal carotid arteries bilaterally. VERTEBRAL ARTERIES: The vertebral arteries are patent bilaterally throughout their course. CTA HEAD: INTERNAL CAROTID ARTERIES: Patent distal internal carotid arteries. CEREBRAL ARTERIES: The proximal anterior, middle and posterior cerebral arteries are patent bilaterally. Left A1 segment is dominant. VERTEBROBASILAR SYSTEM: Normal vertebrobasilar system. Left intradural vertebral artery is dominant. VASCULAR MALFORMATION: No evidence of aneurysm or vascular malformation. OTHER: There are enlarged mediastinal lymph nodes, for instance a right lower paratracheal lymph node measuring up to 2.2 cm. There is also a possible necrotic subcarinal lymph node, partially visualized on the current exam. Status post posterior decompression of C3-C6 with fusion of C2-C6. There is extensive anterior bridging osteophytes which diffusely narrows the aerodigestive tract. There is an anterior osteophyte arising from the anterior arch of C1 which results in severe effacement of the airway at the level of the uvula. IMPRESSION: No acute intracranial abnormality. 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 Grossly unremarkable examination of the cervical and intracranial vasculature. No large vessel occlusion or aneurysm. Status post decompression of C3-C6 with posterior fusion of C2-C6. Extensive anterior bridging osteophytes, including from the anterior arch of C1, which results in severe effacement of the airway at the level of the naso-oropharynx junction. Partially visualized mediastinal lymphadenopathy. Subcarinal lymph node is possibly necrotic. Dedicated CT the chest with contrast is recommended. Report Dictated on --- Final --- Dictating Physician: MD PRESTON, GREYSON HICKEY Signed Date and Time: 03/18/2021 4:51 pm Signed by: MD RAI WASSIM OSAMA Transcribed Date and Time: 03/18/2021 4:52 CTA Chest W WO (PE study) Result Date: 03/18/2021 Patient Name: KATHYA HOOPER Computed Tomography ACCESSION EXAM DATE/TIME PROCEDURE ORDERING PROVIDER [id number] 03/18/2021 16:27 EST CTA Chest w/ + w/o [id number] -CASTROAlyson TIM CPT code 31140 Q9967 Reason For Exam (CTA Chest w/ + w/o Contrast) pulmonary embolus Report CTA chest with and without contrast History: chest pain Protocol: 1 mm images after IV contrast, 3D rendering performed by md on a separate workstation No evidence of aortic dissection or pulmonary embolism. Patchy scattered bilateral lung infiltrates. Minimal left pleural effusion. No lymphadenopathy. IMPRESSION: Patchy scattered bilateral lung infiltrates. Minimal left pleural effusion. Report Dictated on --- Final --- Dictating Physician: MD MICHAELS MALAY Signed Date and Time: 03/18/2021 4:35 pm Signed by: MD MICHAELS MALAY Transcribed Date and Time: 03/18/2021 4:36 XR CHEST PORTABLE Result Date: 03/19/2021 Patient Name: KATHYA HOOPER Diagnostic Radiology ACCESSION EXAM DATE/TIME PROCEDURE ORDERING PROVIDER [id number] 03/19/2021 17:10 EST CR Chest Portable [id number] -BRADY DESAI CPT code 27425 Reason For Exam (CR Chest Portable) hypoxia Report Examination: AP portable chest Clinical Indication: hypoxia Comparison: 03/18/2021 Findings: Lungs appear normally inflated. There is no focal consolidation, effusion, or pulmonary edema identified. The cardiomediastinal silhouette is within normal limits. Degenerative changes visualized right shoulder and spine. Impression: No acute cardiopulmonary process. Report Dictated on --- Final --- Dictating Physician: MD SIMPSON ANTHONY J Signed Date and Time: 03/19/2021 5:21 pm Signed by: MD SIMPSON ANTHONY J Transcribed Date and Time: 03/19/2021 5:22 XR CHEST PORTABLE Result Date: 03/18/2021 [id number]iology ACCESSION EXAM DATE/TIME PROCEDURE ORDERING PROVIDER [id number] 03/18/2021 15:30 EST CR Chest Portable [id number] -BOO CASTRO CPT code 05160 Reason For Exam (CR Chest Portable) sob, ams Report EXAMINATION: Portable chest INDICATION: sob, ams FINDINGS: There is no focal consolidation, sizable pleural effusion or pneumothorax. The cardiac silhouette and mediastinum are within normal limits. Small osteophytes of the spine are present at multiple levels. IMPRESSION: No radiographic evidence of acute cardiopulmonary process. Report Dictated on --- Final --- Dictating Physician: MD MUNOZ KRIKOR Signed Date and Time: 03/18/2021 3:34 pm Signed by: MD MUNOZ KRIKOR Transcribed Date and Time: 03/18/2021 3:35 Discharge Medications: @DISCHARGEMEDSLIST(<NOROUTINE> error)@ Consults: pulmonary Disposition: Patient discharged in stable condition. Greater than 30 minutes spent discharging the patient and coming up with patient discharge plan. Follow up with No primary care provider on file. in 1-2 weeks. Signed: NIYA FERNANDEZ MD, MD 03/24/2021, 11:48 AM documented in this encounter [facility] Work Phone: 03-24-2021 Hospital Discharg e instructions Niya Fernandez MD - 03/24/2021 10:14 AM EST Continuity of Care Form Patient Name: Kathya Hooper : 1955 Admit date: 03/19/2021 Discharge date: Code Status Order: Full Code Advance Directives: Admitting Physician: Rafa Michel MD PCP: No primary care provider on file. Discharging Nurse: Discharging Hospital Unit/Room#: 465/[id number] Discharging Unit Phone Number: Emergency Contact: Extended Emergency Contact Information Primary Emergency Contact: Jason Hooper [facility] Relation: Parent Past Surgical History: Past Surgical History: Procedure Laterality Date CERVICAL FUSION 07/09/2014 C2-6 cervical fusion GASTROSTOMY TUBE PLACEMENT 07/13/2018 TRACHEOSTOMY 07/13/2018 Immunization History: Immunization History Administered Date(s) Administered Pneumococcal Polysaccharide (Xezovpynv22) 01/10/2017 Tdap (Boostrix, Adacel) 01/10/2017 Active Problems: Patient Active Problem List Diagnosis Code Closed fracture dislocation of cervical spine ([facility]) S12.9XXA Traumatic nondisp spondylolisthesis of C3 vertebra with closed fx, initial encounter ([facility]) S12.231A Closed wedge compression fracture of first thoracic vertebra ([facility]) S22.010A Central cord syndrome ([facility]) S14.129A Chronic latent schizophrenia ([facility]) F21 Alcohol abuse F10.10 Respiratory failure after trauma ([facility]) J96.90 Vitamin D insufficiency E55.9 Vertebral artery occlusion, 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 Hypokalemia E87.6 Ileus ([facility]) K56.7 TREVER (acute kidney injury) ([facility]) N17.9 Acute respiratory failure with hypoxia ([facility]) J96.01 Hospital-acquired pneumonia J18.9, Y95 Bilateral pleural effusion J90 Mild bibasilar atelectasis J98.11 Urinary retention R33.9 Prolonged Q-T interval on ECG R94.31 Pressure ulcer of sacral region, stage 2 ([facility]) L89.152 Abdominal wall abscess L02.211 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[facility]) K65.4 Hypoxia R09.02 Respiratory syncytial virus (RSV) B97.4 Isolation/Infection: Isolation No Isolation Patient Infection Status Infection Onset Added Last Indicated Last Indicated By Review Planned Expiration Resolved Resolved By None active Resolved COVID-19 (Rule Out) 03/19/21 03/19/21 03/19/21 COVID-19, Flu A/B, and RSV Combo (Ordered) 03/19/21 Rule-Out Test Resulted Respiratory Syncytial Virus (RSV) 03/19/21 03/19/21 Jennifer Pak RN 03/23/21 Evy Farris RN 03/18/21 All patients testing positive on the Respiratory Virus PCR Panel (Influenza, Metapneumovirus, Rhinovirus, RSV, etc.) will be placed into [employer] Private room or cohort like-viruses (Notify Infection Prevention). Use of mask and face protection in the room. COVID-19 (Rule Out) 03/18/21 03/18/21 03/18/21 COVID-19, Flu A/B, and RSV Combo (Ordered) 03/18/21 Rule-Out Test Resulted ESBL (Extended Spectrum Beta Lactamase) 08/20/18 08/20/18 Cristy Gupta RN 09/24/20 Evy Farris RN 08/15/18 - Klebsiella - abscess Nurse Assessment: Last Vital Signs: BP (!) 85/55 Pulse 85 Temp 97.7 F (36.5 C) (Temporal) Resp 18 Ht 6' 2.02 (1.88 m) Wt 185 lb 14.4 oz (84.3 kg) Comment: earlene Ingram RN (bed scale measurement) on 03/20/2021 SpO2 94% BMI 23.86 kg/m Last documented pain score (0-10 scale): Pain Level: 0 Last Weight: Wt Readings from Last 1 Encounters: 03/20/21 185 lb 14.4 oz (84.3 kg) Mental Status: {IP PT MENTAL STATUS:} IV Access: { CHRIS IV ACCESS:629827574} Nursing Mobility/ADLs: Walking {CHP DME ADLs:174376874} Transfer {CHP DME ADLs:147983778} Bathing {CHP DME ADLs:643542623} Dressing {CHP DME ADLs:076122985} Toileting {CHP DME ADLs:896642283} Feeding {CHP DME ADLs:827062938} Paint Coating Machine Operator {P DME ADLs:376623172} Med Delivery { CHRIS MED Delivery:814103446} Wound Care Documentation and Therapy: Negative Pressure Wound Therapy Abdomen Left (Active) Number of days: 947 Wound Sacrum Mid (Active) Number of days: Elimination: Continence: Bowel: {YES / NO:} Bladder: {YES / NO:} Urinary Catheter: {Urinary Catheter:941595923} Colostomy/Ileostomy/Ileal Conduit: {YES / NO:77338} Date of Last BM: No intake or output data in the 24 hours ending 03/24/21 1013 I/O last 3 completed shifts: In: 660 [NG/GT:660] Out: - Safety Concerns: { CHRIS Safety Concerns:095105321} Impairments/Disabilities: { CHRIS Impairments/Disabilities:11606770 3} Nutrition Therapy: Current Nutrition Therapy: { CHRIS Diet List:819601175} Routes of Feeding: {[facility] DME Other Feedings:262524412} Liquids: {[facility] liquid thickness:28863} Daily Fluid Restriction: {CHP DME Yes amt example:421003024} Last Modified Barium Swallow with Video (Video Swallowing Test): {Done Not Done Date:} Treatments at the Time of Hospital Discharge: Respiratory Treatments: Oxygen Therapy: {Therapy; copd oxygen:71771} Ventilator: { CC Vent List:003669915} Rehab Therapies: {THERAPEUTIC INTERVENTION:6365080558} Weight Bearing Status/Restrictions: {[facility] Weight Bearin} Other Medical Equipment (for information only, NOT a DME order): {EQUIPMENT:459819821} Other Treatments: Patient's personal belongings (please select all that are sent with patient): {[facility] DME Belongings:023088443} RN SIGNATURE: {Esignature:393812538} CASE MANAGEMENT/SOCIAL WORK SECTION Inpatient Status Date: Readmission Risk Assessment Score: Readmission Risk Risk of Unplanned Readmission: 25 Discharging to Facility/ Agency Name: [facility] Address: [address] [place] [id number] Dialysis Facility (if applicable) Name: Address: Dialysis Schedule: Phone: Fax: Manager Nursing Home/Recreation Attendant signature: PHYSICIAN SECTION Prognosis: Good Condition at Discharge: Stable Rehab Potential (if transferring to Rehab): Good Recommended Labs or Other Treatments After Discharge: Physician Certification: I certify the above information and transfer of Kathya Hooper is necessary for the continuing treatment of the diagnosis listed and that he requires Prison Facility for greater 30 days. Update Admission H&P: No change in H&P PHYSICIAN SIGNATURE: documented in this encounter [facility] Work Phone: 03-24-2021 History of Presen t illness Narrative Comprehensive Nutrition Assessment Type and Reason for Visit: Reassess Nutrition Recommendations/Plan: 1. Continue with tube feed TwoCal HN @ 75 mL/hr over 15 hours with 200 mL flushes Q4H Regimen provides: 2250 kcal, 94 g protein and 1988 mL free H2O --> 26 kcal and 1.09 g protein/kg IBW<86.2 kg> 2. Monitor tube tolerance, wts, and labs. RD will follow. Nutrition Assessment: Pt's TF running at goal of 75ml/hr- per pump, 759 ml infused as of 8am. Had some interruptions in TF yesterday due to nausea. TF needs to run at 75ml/hr from 6pm to 9am for 15 hrs for a total of 1125 ml/day. Bed scale today weighed pt at 85kg (187#) Malnutrition Assessment: Malnutrition Status: No malnutrition Context: Chronic Illness Findings of the 6 clinical characteristics of malnutrition: Energy Intake: No significant decrease in energy intake Weight Loss: No significant weight loss Body Fat Loss: No significant body fat loss Muscle Mass Loss: No significant muscle mass loss Fluid Accumulation: No significant fluid accumulation Director Of Diagnostic Imaging Strength: Not Performed Estimated Daily Nutrient Needs: Energy (kcal): 9094-8306 (25-30 kcal/kg IBW); Weight Used for Energy Requirements: [place] (86.2 kg) Protein (g): 86-103 (1.0-1.2 g protein/kg IBW); Weight Used for Protein Requirements: [place] (86.2 kg) Fluid (ml/day): per . At facility receivin mL free water daily from EN and flushes; Method Used for Fluid Requirements: Other (Comment) Nutrition Related Findings: no edema; Cl 112, BUN 30, Cr 0.49, POC Glucose 93, 122, 129, NT pro BNP 710, Hgb 11.7, Hct 35.0, CRP 228.1, Hgb A1c 5.4% Wounds: (left buttock redness) Current Nutrition Therapies: Current Tube Feeding (TF) Orders: Feeding Route: PEG Formula: 2.0 Calorie Schedule: Cyclic Additives/Modulars: (None) Water Flushes: 200 mL Q4H Current TF & Flush Orders Provides: TwoCal HN @ 75 mL/hr over 15 hours with 200 mL flushes Q4H provides: 2250 kcal, 94 g protein and 1988 mL free H2O (788 mL from EN and 1200 mL from flushes) Goal TF & Flush Orders Provides: TF @ goal rate Anthropometric Measures: Height: 6' 2.02 (188 cm) Current Body Weight: 187 lb (84.8 kg) Admission Body Weight: 185 lb 13.6 oz (84.3 kg) (03/20) Usual Body Weight: 187 lb 1.6 oz (84.9 kg) (per facility on 03/02/21, October weight= 185.5# on 01/29/21) [place] Body Weight: 190 lbs; % [place] Body Weight 97.8 % BMI: 24 Adjusted Body Weight: ; No Adjustment BMI Categories: Normal Weight (BMI 18.5-24.9) Nutrition Diagnosis: Increased nutrient needs related to acute injury/trauma, increase demand for energy/nutrients, impaired respiratory function as evidenced by (RSV) Altered GI function related to altered GI function as evidenced by nutrition support - enteral nutrition (s/p trach/PEG 07/13/18) Nutrition Interventions: Food and/or Nutrient Delivery: Continue Current Tube Feeding Nutrition Education/Counseling: No recommendation at this time Coordination of Nutrition Care: Continue to monitor while inpatient Goals: Pt will receive/tolerate tube feed at goal rate Nutrition Monitoring and Evaluation: Behavioral-Environmental Outcomes: None Identified Food/Nutrient Intake Outcomes: Enteral Nutrition Intake/Tolerance Physical Signs/Symptoms Outcomes: Biochemical Data, GI Status, Fluid Status or Edema, Nutrition Focused Physical Findings, Skin, Weight Discharge Planning: Enteral Nutrition Contact: [phone] Images from the original note were not included. Hospitalist Progress Note 03/23/2021 9:27 AM Subjective: Admit Date: 03/19/2021 PCP: No primary care provider on file. Room#: [id number]/[id number] Patient seen and examined. Laying in bed. Appears much better. But was confused earlier. Had some hallucinations, paranoia. Diet NPO ADULT TUBE FEEDING; PEG; 2.0 Calorie; Cyclic; 75; 6:00 PM; 9:00 AM; 200; Q 4 hours Patient Vitals for the past 96 hrs (Last 3 readings): Weight 03/20/21 1116 185 lb 14.4 oz (84.3 kg) Medications: sodium chloride cloZAPine 50 mg Per G Tube BID risperiDONE 0.5 mg Oral Nightly methylPREDNISolone 40 mg IntraVENous Q12H sodium chloride flush 5-40 mL IntraVENous 2 times per day ipratropium-albuterol 1 ampule Inhalation Q4H WA cefepime 2,000 mg IntraVENous Q8H lansoprazole 30 mg PEG Tube QAM AC aspirin 81 mg Per NG tube Daily atorvastatin 40 mg Per NG tube Nightly docusate 100 mg Per NG tube BID enoxaparin 30 mg SubCUTAneous BID finasteride 5 mg Oral Daily sodium chloride (Inhalant) 4 mL Nebulization BID tamsulosin 0.4 mg Oral Daily thiamine 100 mg Oral Daily LABS: CBC: Recent Labs 03/21/21 0156 03/22/21 0020 03/23/21 0348 WBC 7.1 13.3* 15.1* RBC 3.91* 3.93* 3.96* HGB 11.9* 12.4* 12.4* HCT 35.4* 35.9* 36.5* MCV 90.6 91.2 92.0 RDW 13.1 12.8 13.2 PLT 136* 158 211 BMP: Recent Labs 03/21/21 0156 03/23/21 0348 NA 136 142 K 3.4* 3.9 CL 103 110* CO2 26 24 BUN 19* 32* CREATININE 0.53 0.47* GLUCOSE 156* 143* CALCIUM 8.1* 8.8 ANIONGAP 7 8 LIVER PROFILE:No results for input(s): AST, ALT, BILITOT, ALKPHOS, LABALBU, PROT in the last 72 hours. PT/INR: No results for input(s): PROTIME, INR in the last 72 hours. CARDIAC ENZYMES: No results for input(s): TROPONINI in the last 72 hours. Procalcitonin: Lab Results Component Value Date PROCAL 0.09 03/22/2021 Objective: Vitals: BP 126/75 Pulse 96 Temp 97.1 F (36.2 C) (Temporal) Resp 20 Ht 6' 2.02 (1.88 m) Wt 185 lb 14.4 oz (84.3 kg) Comment: per Nataly RN (bed scale measurement) on 03/20/2021 SpO2 95% BMI 23.86 kg/m Pulse Ox: SpO2 Av.2 % Min: 91 % Max: 99 % Supplemental O2: O2 Flow Rate (L/min): 4 L/min General appearance: Lethargic, no acute distress noted otherwise HEENT: Eyes: No scleral icterus, pallor- Oral: Tongue is semi-moist Cardiovascular: S1S2 heard, regular tachycardia Respiratory: Normal effort, bilateral scattered rhonchi - some improvement Abdomen: Soft, PEG tube+, non-distended with normal bowel sounds. Musculoskeletal: Trace pedal edema, no obvious deformities seen Skin: No visible acute rashes or lesions, peg tube site appears wnl. Assessment Acute hypoxic respiratory failure likely due to aspiration pneumonia COPD with acute exacerbation RSV respiratory tract infection H/o spinal cord injury with C2-6 fusion H/o trach and peg, s/p trach removal, PEG continued for dysphagia H/o anxiety and schizophrenia Plan Discussed with ASP: DOMENICA Vancomycin. Stop date for cefepime is 03/24 Sputum studies if able to get sample, urine legionella and strep antigen, procalcitonin was 0.14. Solumedrol to bid, Appreciate pulm input, bronchodilator therapy, continue tube feed. Home medications have been resumed as appropriate. Increase Clozapine 75mg bid, risperdal only at night - likely causing increased somnolence and lethargy. DVT Prophylaxis: SQ Lovenox. GI Prophylaxis: Add lansoprazole. Advance Directive: Full Code Discharge planning: TBD . Images from the original note were not included. [facility], Pulmonary Critical Care and Sleep Medicine [address] [place] [address] Patient - Kathya Hooper, Age - 66 y.o. - 1955 Room Number - [id number] Consulting - Rafa Michel MD Primary Care Physician - No [facility] provider [facility] file[phone] Date of Admission - 03/19/2021 3:52 PM Hospital Day - 3 Subjective/Events Past 24 hours/ROS Patient lying in the bed appears to be comfortable denies any chest pain or shortness of breath at rest, currently on 4 L nasal cannula oxygen, no significant events overnight All other systems reviewed Objective Vitals height is 6' 2.02 (1.88 m) and weight is 185 lb 14.4 oz (84.3 kg). His temporal temperature is 97.1 F (36.2 C). His blood pressure is 126/75 and his pulse is 96. His respiration is 24 and oxygen saturation is 92%. O2 Flow Rate (L/min): 4 L/min I/O No intake or output data in the 24 hours ending 03/23/21 0818 Patient Vitals for the past 96 hrs (Last 3 readings): Weight 03/20/21 1116 185 lb 14.4 oz (84.3 kg) Exam General Appearance Awake, alert, oriented, in no acute distress HEENT - normocephalic, atraumatic, sclarea is anicteric, conjunctiva is pink, nasal mucosa is normal, no congestion, external ears are intact. Neck - Supple, trachea midline Lymph nodes- no cervical, clavicular, or posterior auricular lymphadenopathy Lungs Normal effort Poor air entry bilaterally, no obvious wheezing or crackles, diminished breath sounds at the bases. Cardiovascular - Heart sounds are normal. Regular rate and rhythm, no murmur or rub Abdomen - Soft, nontender, nondistended, no masses or organomegaly Neurologic - Awake, alert, CN II to XII intact, There are no focal motor deficits grossly Skin - No bruising or bleeding, good turgor, normal warmth Extremities - No clubbing, cyanosis, edema Peripheral pulses- radial and pedal pulses 2+ bilaterally Meds cloZAPine 50 mg Per G Tube BID risperiDONE 0.5 mg Oral Nightly methylPREDNISolone 40 mg IntraVENous Q12H sodium chloride flush 5-40 mL IntraVENous 2 times per day ipratropium-albuterol 1 ampule Inhalation Q4H WA cefepime 2,000 mg IntraVENous Q8H lansoprazole 30 mg PEG Tube QAM AC aspirin 81 mg Per NG tube Daily atorvastatin 40 mg Per NG tube Nightly docusate 100 mg Per NG tube BID enoxaparin 30 mg SubCUTAneous BID finasteride 5 mg Oral Daily sodium chloride (Inhalant) 4 mL Nebulization BID tamsulosin 0.4 mg Oral Daily thiamine 100 mg Oral Daily sodium chloride sodium chloride flush, sodium chloride, ondansetron OR ondansetron, polyethylene glycol, acetaminophen OR acetaminophen, melatonin, albuterol Labs CBC Recent Labs 03/23/21 034 WBC 15.1* HGB 12.4* HCT 36.5* MCV 92.0 PLT 211 BMP: Recent Labs 03/21/21 0156 03/21/21 0156 03/23/218 NA 136 < > 142 K 3.4* < > 3.9 CL 103 < > 110* CO2 26 < > 24 BUN 19* < > 32* CREATININE 0.53 < > 0.47* GLUCOSE 156* < > 143* MG 2.2 -- -- < > = values in this interval not displayed. ABG: Lab Results Component Value Date PH 7.40 07/13/2018 INR Lab Results Component Value Date INR 1.1 03/18/2021 INR 1.1 08/16/2018 INR 1.0 07/09/2018 PROTIME 11.4 03/18/2021 PROTIME 11.8 08/16/2018 PROTIME 10.3 07/09/2018 PTT Lab Results Component Value Date APTT 30.7 (H) 03/18/2021 Radiology CXR105/19/2020 Reviewed (See actual reports for details) Active Hospital Problem List Active Hospital Problems Diagnosis Date Noted Hypoxia [R09.02] 03/19/2021 Respiratory syncytial virus (RSV) [B97.4] 03/19/2021 Assessment and Plan Acute hypoxic respiratory failure, improving wean supplemental oxygen as tolerated keep oxygen saturation above 92 percentile RSV lower respiratory tract infection supportive care Possible aspiration pneumonia, continue antibiotics as per infectious disease History of dysphagia aspiration precautions Case discussed with nurse and patient Questions and concerns addressed. Went in pt's room to give night meds. Pt was paranoid and trying to get out of bed. Pt thought there was a copier technician in the corner of his room. When pt got his meds he calmed down. Pt now watching tv. Call light within reach. Bed alarm on. Images from the original note were not included. [facility], Pulmonary Critical Care and Sleep Medicine [address] [place], [place] [id number] Patient - Kathya Hooper, Age - 66 y.o. - 1955 Room Number - [id number] Consulting - Rafa Michel MD Primary Care Physician - No primary care provider on file. [facility] [id number] Date of Admission - 03/19/2021 3:52 PM Hospital Day - 2 Subjective/Events Past 24 hours/ROS On 6L supplemental oxygen, does not use at ECF. He reports feeling a little better today. Has a frequent cough and trouble getting up phlegm. All other systems reviewed Objective Vitals Vitals: BP 137/79 Pulse 98 Temp 98.1 F (36.7 C) (Temporal) Resp 20 Ht 6' 2.02 (1.88 m) Wt 185 lb 14.4 oz (84.3 kg) Comment: earlene Ingram RN (bed scale measurement) on 03/20/2021 SpO2 93% BMI 23.86 kg/m Pulse Ox: SpO2 Av.4 % Min: 89 % Max: 96 % Supplemental O2: O2 Flow Rate (L/min): 6 L/min I/O 24HR INTAKE/OUTPUT: Intake/Output Summary (Last 24 hours) at 03/22/2021 0924 Last data filed at 03/22/2021 0407 Gross per 24 hour Intake 467 ml Output Net 467 ml Patient Vitals for the past 96 hrs (Last 3 readings): Weight 03/20/21 1116 185 lb 14.4 oz (84.3 kg) Exam General Appearance Awake, alert, oriented, in no acute distress. On 6L. HEENT - normocephalic, atraumatic, sclarea is anicteric, conjunctiva is pink, nasal mucosa is normal, no congestion, external ears are intact. Neck - Supple, trachea midline, full range of motion. Lymph nodes- no cervical, clavicular, or posterior auricular lymphadenopathy Lungs-poor airway clearance, congested, +rhonchi , +harsh wet sounding cough Cardiac- Rate regular sounds are normal. Regular rate and rhythm, without murmurs, rubs or gallops Abdomen - Soft, nontender, nondistended, no masses or organomegaly Neurologic - Awake, alert, follows commands. Cranial nerves II-XII are intact, There are no focal motor deficits grossly Skin - No bruising or bleeding, normal turgor, no rashes or lesions Extremities - no edema, gross motor movement to bilateral upper extrem, non ambulatory Peripheral pulses- present bilaterally and symmetric Psychiatric: appropriate, oriented to person, place and time/date Meds vancomycin 1,500 mg IntraVENous Q8H cloZAPine 50 mg Per G Tube BID risperiDONE 0.5 mg Oral Nightly methylPREDNISolone 40 mg IntraVENous Q12H sodium chloride flush 5-40 mL IntraVENous 2 times per day ipratropium-albuterol 1 ampule Inhalation Q4H WA cefepime 2,000 mg IntraVENous Q8H lansoprazole 30 mg PEG Tube QAM AC aspirin 81 mg Per NG tube Daily atorvastatin 40 mg Per NG tube Nightly docusate 100 mg Per NG tube BID enoxaparin 30 mg SubCUTAneous BID finasteride 5 mg Oral Daily sodium chloride (Inhalant) 4 mL Nebulization BID tamsulosin 0.4 mg Oral Daily thiamine 100 mg Oral Daily sodium chloride sodium chloride flush, sodium chloride, ondansetron OR ondansetron, polyethylene glycol, acetaminophen OR acetaminophen, melatonin, albuterol Labs CBC Recent Labs 03/22/21 0020 WBC 13.3* HGB 12.4* HCT 35.9* MCV 91.2 PLT 158 BMP: Recent Labs 03/21/21 0156 NA 136 K 3.4* CL 103 CO2 26 BUN 19* CREATININE 0.53 GLUCOSE 156* MG 2.2 ABG: No results for input(s): PH, PCO2, PO2, HCO3, O2SAT in the last 72 hours. No results found for: IFIO2, MODE, SETTIDVOL, SETPEEP LIVER PROFILE No results for input(s): AST, ALT, LIPASE, BILIDIR, BILITOT, ALKPHOS in the last 72 hours. Invalid input(s): AMYLASE, LB INR Lab Results Component Value Date INR 1.1 03/18/2021 INR 1.1 08/16/2018 INR 1.0 07/09/2018 PROTIME 11.4 03/18/2021 PROTIME 11.8 08/16/2018 PROTIME 10.3 07/09/2018 PTT Lab Results Component Value Date APTT 30.7 (H) 03/18/2021 Cultures PCR +RSV Radiology 03/19 CTA chest Patchy scattered bilateral lung infiltrates. Minimal left pleural effusion. Reviewed (See actual reports for details) Active Hospital Problem List Active Hospital Problems Diagnosis Date Noted Hypoxia [R09.02] 03/19/2021 RSV (respiratory syncytial virus infection) [B97.4] 03/19/2021 Assessment and Plan Acute hypoxic respiratory failure secondary to RSV infection and suspected superimposed bacterial pneumonia, possible aspiration -on 6L this morning, does not use home O2 -on solu-medrol 40mg IV, ok to continue for now -MRSA PCR negative, will stop Vanc -ok to continue Cefepime through 03/24-discussed with ID stewardship Dysphagia, concern for aspiration -not able to clear his secretions efficiently, keep HOB elevated and suction prn, assess for any mucous plugging in airway -needs aggressive pulmonary toileting-continue Hypersal, nebs -continue antibiotics -has PEG for feedings and denies taking any po recently Small left pleural effusion -monitor History of spinal cord injury with cervical effusion, s/p PEG, trach now removed -non ambulatory and contributes to overall difficulty with airway clearance History of anxiety/schizophrenia -clozaril, risperidol DVT prophylaxis: [x] Lovenox [] Heparin [] SCDs [x] Encourage ambulation [] Already on Anticoagulation Advance Directive: Full Code Discharge planning: TBD Case discussed with Dr Shipman. Questions and concerns addressed. Associated attestation - Wendy Shipman MD - 03/22/2021 4:59 PM EST I have personally performed a face to face diagnostic evaluation on this patient. Labs, imaging studies and electronic medical record have been reviewed by me. This note documented by the YANET reflects my history, exam and medical decision making as discussed with the YANET . I have reviewed and agree with the care plan. Changes were made in the orders as necessary My history, exam, assessment and plan are as follows. Patient lying in the bed appears to be comfortable complains of cough denies any chest pain or shortness of breath currently on 5 L nasal cannula oxygen Assessment Vitals: BP 137/79 Pulse 98 Temp 98.1 F (36.7 C) (Temporal) Resp 20 Ht 6' 2.02 (1.88 m) Wt 185 lb 14.4 oz (84.3 kg) Comment: per Nataly RN (bed scale measurement) on 03/20/2021 SpO2 92% BMI 23.86 kg/m Pulse Ox: SpO2 Av.4 % Min: 90 % Max: 99 % Supplemental O2: O2 Flow Rate (L/min): 5 L/min General Appearance Awake, alert, oriented, in no acute distress HEENT - normocephalic, atraumatic, sclarea is anicteric, conjunctiva is pink, nasal mucosa is normal, no congestion, external ears are intact. Neck - Supple, trachea midline Lymph nodes- no cervical, clavicular, or posterior auricular lymphadenopathy Lungs Normal effort Poor air entry bilaterally, no obvious wheezing or crackles, diminished breath sounds at the bases. Cardiovascular - Heart sounds are normal. Regular rate and rhythm, no murmur or rub Abdomen - Soft, nontender, nondistended, no masses or organomegaly Neurologic - Awake, alert, CN II to XII intact, There are no focal motor deficits grossly Skin - No bruising or bleeding, good turgor, normal warmth Extremities - No clubbing, cyanosis, edema Peripheral pulses- radial and pedal pulses 2+ bilaterally Psychiatric: appropriate, oriented to person, place and time/date, normal thought processes, normal thought content, normal affect Dx/ Plan of care Acute hypoxic respiratory failure due to RSV lower respiratory tract infection with superimposed bacterial pneumonia, continue supplemental oxygen wean as tolerated Possible aspiration pneumonia, continue cefepime as per infectious disease RSV lower respiratory tract infection, supportive care History of dysphagia, aspiration precautions Small left pleural effusion, repeat chest x-ray if clinically indicated Oxygen supplement to maintain SpO2 92%. Wean FiO2 as patient tolerates Images from the original note were not included. Hospitalist Progress Note 03/22/2021 8:50 AM Subjective: Admit Date: 03/19/2021 PCP: No primary care provider on file. Room#: 465/4651 Patient seen and examined. Laying in bed. Appears much better. Diet NPO ADULT TUBE FEEDING; PEG; 2.0 Calorie; Cyclic; 75; 6:00 PM; 9:00 AM; 200; Q 4 hours Patient Vitals for the past 96 hrs (Last 3 readings): Weight 03/20/21 1116 185 lb 14.4 oz (84.3 kg) Medications: sodium chloride vancomycin 1,500 mg IntraVENous Q8H cloZAPine 50 mg Per G Tube BID risperiDONE 0.5 mg Oral Nightly methylPREDNISolone 40 mg IntraVENous Q12H sodium chloride flush 5-40 mL IntraVENous 2 times per day ipratropium-albuterol 1 ampule Inhalation Q4H WA cefepime 2,000 mg IntraVENous Q8H lansoprazole 30 mg PEG Tube QAM AC aspirin 81 mg Per NG tube Daily atorvastatin 40 mg Per NG tube Nightly docusate 100 mg Per NG tube BID enoxaparin 30 mg SubCUTAneous BID finasteride 5 mg Oral Daily sodium chloride (Inhalant) 4 mL Nebulization BID tamsulosin 0.4 mg Oral Daily thiamine 100 mg Oral Daily LABS: CBC: Recent Labs 03/19/21 1710 03/21/21 0156 03/22/21 0020 WBC 9.1 7.1 13.3* RBC 4.23* 3.91* 3.93* HGB 13.1 11.9* 12.4* HCT 38.5* 35.4* 35.9* MCV 91.1 90.6 91.2 RDW 13.0 13.1 12.8 PLT 163 136* 158 BMP: Recent Labs 03/19/21 1710 03/20/21 0023 03/21/21 0156 NA 137 137 136 K 4.1 3.9 3.4* CL 102 104 103 CO2 26 27 26 BUN 16 14 19* CREATININE 0.48* 0.51* 0.53 GLUCOSE 132* 106* 156* CALCIUM 8.5 8.4 8.1* ANIONGAP 9 6 7 LIVER PROFILE:No results for input(s): AST, ALT, BILITOT, ALKPHOS, LABALBU, PROT in the last 72 hours. PT/INR: No results for input(s): PROTIME, INR in the last 72 hours. CARDIAC ENZYMES: Recent Labs 03/19/21 1710 03/20/21 0023 TROPONINI 0.017 0.037* Procalcitonin: Lab Results Component Value Date PROCAL 0.14 03/20/2021 Objective: Vitals: BP 137/79 Pulse 98 Temp 98.1 F (36.7 C) (Temporal) Resp 20 Ht 6' 2.02 (1.88 m) Wt 185 lb 14.4 oz (84.3 kg) Comment: per Nataly RN (bed scale measurement) on 03/20/2021 SpO2 93% BMI 23.86 kg/m Pulse Ox: SpO2 Av.5 % Min: 89 % Max: 96 % Supplemental O2: O2 Flow Rate (L/min): 6 L/min General appearance: Lethargic, no acute distress noted otherwise HEENT: Eyes: No scleral icterus, pallor- Oral: Tongue is semi-moist Cardiovascular: S1S2 heard, regular tachycardia Respiratory: Normal effort, bilateral scattered rhonchi - some improvement Abdomen: Soft, PEG tube+, non-distended with normal bowel sounds. Musculoskeletal: Trace pedal edema, no obvious deformities seen Skin: No visible acute rashes or lesions, peg tube site appears wnl. Assessment Acute hypoxic respiratory failure likely due to aspiration pneumonia COPD with acute exacerbation RSV respiratory tract infection H/o spinal cord injury with C2-6 fusion H/o trach and peg, s/p trach removal, PEG continued for dysphagia H/o anxiety and schizophrenia Plan Discussed with ASP: DOMENICA Vancomycin. Stop date for cefepime is 03/24 Sputum studies if able to get sample, urine legionella and strep antigen, procalcitonin was 0.14. Solumedrol to bid, Appreciate pulm input, bronchodilator therapy, continue tube feed. Home medications have been resumed as appropriate. Continue olanzapine 50 mg bid, risperdal only at night - likely causing increased somnolence and lethargy. DVT Prophylaxis: SQ Lovenox. GI Prophylaxis: Add lansoprazole. Advance Directive: Full Code Discharge planning: TBD . Pharmacy Vancomycin Consult Follow-Up Note Current Dosin mg q12h Recent Labs 03/20/21 0023 03/21/21 0156 BUN 14 19* Recent Labs 03/20/21 0023 03/21/21 0156 CREATININE 0.51* 0.53 Recent Labs 03/21/21 0156 03/22/21 0020 WBC 7.1 13.3* Ht Readings from Last 1 Encounters: 03/20/21 6' 2.02 (1.88 m) Wt Readings from Last 1 Encounters: 03/20/21 185 lb 14.4 oz (84.3 kg) Body mass index is 23.86 kg/m . Estimated Creatinine Clearance: 164 mL/min (based on SCr of 0.53 mg/dL). Trough: 8.1 mcg/ml drawn 03/22/21 at 0020 Assessment/Plan: Subtherapeutic trough. Renal function stable. Increased to 1500 mg q8h. Trough scheduled for 03/23/21 at 0830 prior to the 4th dose. Pulmonary F/U Note: Patient - Kathya Hooper, Age - 66 y.o. - 1955 Room Number - [id number] Date of Admission - 03/19/2021 3:52 PM Hospital Day - 1 HPI/Subjective Patient sleepy, easily awake Still on 6 L N/C No resp distress No rattling today Active Hospital Problem List Active Hospital Problems Diagnosis Date Noted Hypoxia [R09.02] 03/19/2021 RSV (respiratory syncytial virus infection) [B97.4] 03/19/2021 Events of Past 24 Hours as noted above All other systems reviewed Vitals height is 6' 2.02 (1.88 m) and weight is 185 lb 14.4 oz (84.3 kg). His temporal temperature is 97.9 F (36.6 C). His blood pressure is 124/76 and his pulse is 109. His respiration is 18 and oxygen saturation is 95%. Range Data Temperature Range: Temp: 97.9 F (36.6 C)Temp Av.1 F (37.3 C) Min: 97.9 F (36.6 C) Max: 100 F (37.8 C) BP Range: Systolic (24hrs), Av , Min:110 , Max:124 Diastolic (24hrs), Av, Min:64, Max:76 Pulse Range: Pulse Av.7 Min: 103 Max: 109 Respiration Range: Resp Av Min: 18 Max: 20SpO2: 95 % 24hr Pulse Ox Range: SpO2 Av.4 % Min: 89 % Max: 95 % O2 Flow Rate (L/min): 6 L/min I/O Intake/Output Summary (Last 24 hours) at 03/21/2021 1213 Last data filed at 03/21/2021 0605 Gross per 24 hour Intake 1003 ml Output Net 1003 ml I/O last 3 completed shifts: In: 1003 [NG/GT:1003] Out: - Date 03/21/21 0000 - 03/21/21 2359 Shift 5354-6634 2546-6071 4424-1579 24 Hour Total INTAKE NG/GT(mL/kg) 542(6.4) 542(6.4) Shift Total(mL/kg) 542(6.4) 542(6.4) OUTPUT Shift Total(mL/kg) Weight (kg) 84.3 84.3 84.3 84.3 Patient Vitals for the past 96 hrs (Last 3 readings): Weight 03/20/21 1116 185 lb 14.4 oz (84.3 kg) Medications cloZAPine 50 mg Per G Tube BID [START ON 03/22/2021] risperiDONE 0.5 mg Oral Nightly methylPREDNISolone 40 mg IntraVENous Q12H sodium chloride flush 5-40 mL IntraVENous 2 times per day ipratropium-albuterol 1 ampule Inhalation Q4H WA vancomycin 1,250 mg IntraVENous Q12H cefepime 2,000 mg IntraVENous Q8H lansoprazole 30 mg PEG Tube QAM AC aspirin 81 mg Per NG tube Daily atorvastatin 40 mg Per NG tube Nightly docusate 100 mg Per NG tube BID enoxaparin 30 mg SubCUTAneous BID finasteride 5 mg Oral Daily sodium chloride (Inhalant) 4 mL Nebulization BID tamsulosin 0.4 mg Oral Daily thiamine 100 mg Oral Daily PRN sodium chloride flush, sodium chloride, ondansetron OR ondansetron, polyethylene glycol, acetaminophen OR acetaminophen, melatonin, albuterol IV sodium chloride Diet/Nutrition Diet NPO ADULT TUBE FEEDING; PEG; 2.0 Calorie; Cyclic; 75; 6:00 PM; 9:00 AM; 200; Q 4 hours Exam General Appearance sleepy, easily awake Follows simple commands NAD Mood/Affect - Normal affect, thought process and thought content HEENT - Head is normocephalic, atraumatic. EOMI, PERRLA, sclarea is anicteric, conjunctiva is pink, nasal mucosa is normal, no congestion, external ears are intact. Neck -Soft, trachea midline and straight, no thyromegaly Lungs - decreased BS rales at bases no wheezing Cardiovascular - Heart sounds are normal. Regular rhythm, normal rate without murmur, gallop or rub. Abdomen - Soft, nontender, nondistended, no masses or organomegaly PEG tube in place Skin - No bruising or bleeding, good turgor, normal warmth Extremities - No cyanosis, clubbing or edema, moves all extremities x 4. Warm and well perfused. Capillary refill <2 seconds in fingers Neurologic - CN II-XII are grossly intact. Normal light touch sensation in 4 extremities grossly, There are no focal motor deficits grossly Generalized weakness in all extremities Lymphatics- No cervical/ axillary/ inguinal adenopathy Peripheral pulses- Present bilaterally and symmetric Lab Results CBC Lab Results Component Value Date WBC 7.1 03/21/2021 RBC 3.91 03/21/2021 HGB 11.9 03/21/2021 HCT 35.4 03/21/2021 PLT 136 03/21/2021 MCV 90.6 03/21/2021 MCH 30.5 03/21/2021 MCHC 33.7 03/21/2021 RDW 13.1 03/21/2021 NRBC 1 07/27/2018 METASPCT 1 08/18/2018 LYMPHOPCT 10.8 03/19/2021 PROMYELOPCT 2 08/18/2018 MONOPCT 9.4 03/19/2021 MYELOPCT 1 08/18/2018 BASOPCT 0.6 03/19/2021 MONOSABS 0.9 03/19/2021 LYMPHSABS 1.0 03/19/2021 EOSABS 0.0 03/19/2021 BASOSABS 0.1 03/19/2021 BMP Lab Results Component Value Date NA 136 03/21/2021 K 3.4 03/21/2021 CL 103 03/21/2021 CO2 26 03/21/2021 BUN 19 03/21/2021 CREATININE 0.53 03/21/2021 GLUCOSE 156 03/21/2021 IONCA 4.10 07/13/2018 LFTS Lab Results Component Value Date ALKPHOS 116 08/17/2018 ALT 370 08/17/2018 AST 150 08/17/2018 PROT 5.4 08/17/2018 BILITOT 0.7 08/17/2018 BILIDIR 0.0 08/17/2018 LABALBU 2.5 08/17/2018 ABG Lab Results Component Value Date PH 7.40 07/13/2018 No results found for: IFIO2, MODE, SETTIDVOL, SETPEEP INR Lab Results Component Value Date INR 1.1 03/18/2021 INR 1.1 08/16/2018 INR 1.0 07/09/2018 PROTIME 11.4 03/18/2021 PROTIME 11.8 08/16/2018 PROTIME 10.3 07/09/2018 APTT Recent Labs 03/18/21 1524 APTT 30.7* Lactic Acid Lab Results Component Value Date LACTA 0.7 03/20/2021 LACTA 2.3 03/19/2021 LACTA 1.3 11/05/2018 BNP No results for input(s): BNP in the last 72 hours. Cultures RSV/PCR Radiology CXR/CT Chest Reviewed (See actual reports for details) ASSESSMENT AND PLAN - ACUTE HYPOXIC RESPIRATORY FAILURE, LIKELY SECONDARY TO BILATERAL PATCHY INFILTRATE AND PNEUMONIA, POSSIBLE ASPIRATION PNEUMONIA/ RSV resp tract infection Titrate FiO2 keeping O2 sat >92% Broad spectrum antibiotics Follow Cx result F/U Imaging - ACUTE BRONCHOSPASM WITH HISTORY OF TOBACCO USE DISORDER, QUIT RECENTLY, PROBABLY UNDERLYING CHRONIC OBSTRUCTIVE PULMONARY DISEASE WITH EXACERBATION. BD therapy Short course of steroid - RESPIRATORY SYNCYTIAL VIRUS RESPIRATORY TRACT INFECTION. Droplet isolation Supportive care - SMALL LEFT PLEURAL EFFUSION ON CT OF THE CHEST. F/u imaging - HISTORY OF SPINAL CORD INJURY WITH C2-C6 FUSION. ? Bed bound On PEG tube feeding Bed side PT/OT - PERCUTANEOUS ENDOSCOPIC GASTROSTOMY TUBE IN PLACE. On tube feed - HISTORY OF TRACHEOSTOMY IN THE PAST, WHICH HAD BEEN REMOVED. - HISTORY OF ANXIETY AND SCHIZOPHRENIA. on multiple meds DVT prophylaxis Case discussed with nurse and patient/. Questions and concerns addressed. Images from the original note were not included. Hospitalist Progress Note 03/21/2021 9:41 AM [phone]: Please page me for patient care issues. [phone]: Please page [facility] night Hospitalist for any issues. Subjective: Admit Date: 03/19/2021 PCP: No primary care provider on file. Room#: 465/4658 Interval History: Lethargic, hard to arouse this morning. Did wake up to pain stimuli, opened eyes with diffculty. Denies pain or dyspnea, not answering questions much. Diet NPO ADULT TUBE FEEDING; PEG; 2.0 Calorie; Cyclic; 75; 6:00 PM; 9:00 AM; 200; Q 4 hours Patient Vitals for the past 96 hrs (Last 3 readings): Weight 03/20/21 1116 185 lb 14.4 oz (84.3 kg) Medications: sodium chloride cloZAPine 50 mg Per G Tube BID [START ON 03/22/2021] risperiDONE 0.5 mg Oral Nightly methylPREDNISolone 40 mg IntraVENous Q12H sodium chloride flush 5-40 mL IntraVENous 2 times per day ipratropium-albuterol 1 ampule Inhalation Q4H WA vancomycin 1,250 mg IntraVENous Q12H cefepime 2,000 mg IntraVENous Q8H lansoprazole 30 mg PEG Tube QAM AC aspirin 81 mg Per NG tube Daily atorvastatin 40 mg Per NG tube Nightly docusate 100 mg Per NG tube BID enoxaparin 30 mg SubCUTAneous BID finasteride 5 mg Oral Daily sodium chloride (Inhalant) 4 mL Nebulization BID tamsulosin 0.4 mg Oral Daily thiamine 100 mg Oral Daily LABS: CBC: Recent Labs 03/18/21 1524 03/19/21 1710 03/21/21 0156 WBC 8.8 9.1 7.1 RBC 4.24* 4.23* 3.91* HGB 13.6 13.1 11.9* HCT 38.3* 38.5* 35.4* MCV 90.2 91.1 90.6 RDW 12.9 13.0 13.1 PLT 129* 163 136* BMP: Recent Labs 03/19/21 1710 03/20/21 0023 03/21/21 0156 NA 137 137 136 K 4.1 3.9 3.4* CL 102 104 103 CO2 26 27 26 BUN 16 14 19* CREATININE 0.48* 0.51* 0.53 GLUCOSE 132* 106* 156* CALCIUM 8.5 8.4 8.1* ANIONGAP 9 6 7 LIVER PROFILE:No results for input(s): AST, ALT, BILITOT, ALKPHOS, LABALBU, PROT in the last 72 hours. PT/INR: Recent Labs 03/18/21 1524 PROTIME 11.4 INR 1.1 CARDIAC ENZYMES: Recent Labs 03/19/21 1710 03/20/21 0023 TROPONINI 0.017 0.037* Procalcitonin: Lab Results Component Value Date PROCAL 0.14 03/20/2021 Objective: Vitals: BP 113/64 Pulse 103 Temp 100 F (37.8 C) (Temporal) Resp 18 Ht 6' 2.02 (1.88 m) Wt 185 lb 14.4 oz (84.3 kg) Comment: per Nataly RN (bed scale measurement) on 03/20/2021 SpO2 93% BMI 23.86 kg/m Pulse Ox: SpO2 Av.8 % Min: 90 % Max: 95 % Supplemental O2: O2 Flow Rate (L/min): 6 L/min General appearance: Lethargic, no acute distress noted otherwise HEENT: Eyes: No scleral icterus, pallor- Oral: Tongue is semi-moist Cardiovascular: S1S2 heard, regular tachycardia Respiratory: Normal effort, bilateral scattered rhonchi - some improvement Abdomen: Soft, PEG tube+, non-distended with normal bowel sounds. Musculoskeletal: Trace pedal edema, no obvious deformities seen Skin: No visible acute rashes or lesions, peg tube site appears wnl. Assessment Acute hypoxic respiratory failure likely due to aspiration pneumonia COPD with acute exacerbation RSV respiratory tract infection H/o spinal cord injury with C2-6 fusion H/o trach and peg, s/p trach removal, PEG continued for dysphagia H/o anxiety and schizophrenia Plan Continue cefepime and vancomycin, mrsa pcr ordered, can stop vancomycin if negative. Sputum studies if able to get sample, urine legionella and strep antigen, procalcitonin was 0.14. Solumedrol to bid, Appreciate pulm input, bronchodilator therapy, continue tube feed. Home medications have been resumed as appropriate. Decrease olanzapine to 50 bid, risperdal only at night - likely causing increased somnolence and lethargy. DVT Prophylaxis: SQ Lovenox. GI Prophylaxis: Add lansoprazole. Advance Directive: Full Code Discharge planning: TBD . Comprehensive Nutrition Assessment Type and Reason for Visit: Initial, Consult (Tube Feeding Ordering and Management) Nutrition Recommendations/Plan: 1. Patient NPO with PEG in place, confirmed EN regimen with facility. Nutren 2.0 @ 75 mL/hr over 15 hours with 300 mL H2O flushes Q4H, which provides: 2250 kcal, 94.5 g protein. 2579 mL free H2O daily 2. Discussed with Dr Stafford- and per MNT protocol, changed EN formula to: TwoCal HN @ 75 mL/hr over 15 hours with 200 mL flushes Q4H Regimen provides: 2250 kcal, 94 g protein and 1988 mL free H2O --> 26 kcal and 1.09 g protein/kg IBW<86.2 kg> 3. RDN to continue to monitor weekly changes in: fluid accumulation, weight, skin integrity, daily lab values, intakes and clinical status and/or goals of care Nutrition Assessment: 66 year old man with PMHx: EtoH abuse, TREVER, Depression, schizophrenia, C2-6 cervical fusion in 2015 and s/p Trach PEG 07/13/2018. [facility] from [facility] to [facility] ED with worsening SOB. Evaluated in ED on 03/18, diagnosed with RSV and hypoxia and discharged back to facility on O2. When back at facility, patient with worsening desaturation and required another evaluation. Noted elevated Lactic Acid (2.3) on admission and Chest Xray in ED: No acute cardiopulmonary process. Noted Chest CT from ED visit on 03/18: Patchy scattered bilateral lung infiltrates. Minimal left pleural effusion . Pulmonology consulted, started on maxipime and vancocin to cover aspiration PNA. Obtained recent weight and EN regimen from facility. At time of visit patient resting in bed, introduced self and role. Consent obtained and NFPE completed. Patient states no issues with GI distress or diarrhea with EN regimen at facility- does endorse loose stooling at baseline. Feels urge to move bowels, alerted RN Nataly. Discussed EN change in product and to cycle feeding. Malnutrition Assessment: Malnutrition Status: No malnutrition Context: Chronic Illness Findings of the 6 clinical characteristics of malnutrition: Energy Intake: No significant decrease in energy intake Weight Loss: No significant weight loss Body Fat Loss: No significant body fat loss Muscle Mass Loss: No significant muscle mass loss Fluid Accumulation: No significant fluid accumulation Director Of Diagnostic Imaging Strength: Not Performed Estimated Daily Nutrient Needs: Energy (kcal): 0335-5108 (25-30 kcal/kg IBW); Weight Used for Energy Requirements: [place] (86.2 kg) Protein (g): 86-103 (1.0-1.2 g protein/kg IBW); Weight Used for Protein Requirements: [place] (86.2 kg) Fluid (ml/day): per MD. At facility receivin mL free water daily from EN and flushes; Method Used for Fluid Requirements: Other (Comment) Nutrition Related Findings: Massimo score= 15. No skin breakdown or edema noted. S/p Trach/PEG, per COMFORT ADVISOR note, does not take any food, drink or medications orally. Elevated LA in ED (2.3->0.7), elevated CRP(228.1), and low Creatinine(0.51). Weight stable x 1 month per facility and receiving > 75% estimated needs from EN Wounds: None Current Nutrition Therapies: Diet NPO ADULT TUBE FEEDING; PEG; 2.0 Calorie; Cyclic; 75; 6:00 PM; 9:00 AM; 200; Q 4 hours Current Tube Feeding (TF) Orders: Feeding Route: PEG Formula: 2.0 Calorie (TwoCal HN) Schedule: Cyclic (1800 to 0900) Additives/Modulars: (None) Water Flushes: 200 mL Q4H Current TF & Flush Orders Provides: TwoCal HN @ 75 mL/hr over 15 hours with 200 mL flushes Q4H provides: 2250 kcal, 94 g protein and 1988 mL free H2O (788 mL from EN and 1200 mL from flushes) Goal TF & Flush Orders Provides: Anthropometric Measures: Height: 6' 2.02 (188 cm) Current Body Weight: 185 lb 13.6 oz (84.3 kg) (03/20) Admission Body Weight: 185 lb 13.6 oz (84.3 kg) (03/20) Usual Body Weight: 187 lb 1.6 oz (84.9 kg) (per facility on 03/02/21, January weight= 185.5# on 01/29/21) [place] Body Weight: 190 lbs; % [place] Body Weight 97.8 % BMI: 23.9 BMI Categories: Normal Weight (BMI 18.5-24.9) Nutrition Diagnosis: Increased nutrient needs related to acute injury/trauma, increase demand for energy/nutrients, impaired respiratory function as evidenced by (RSV) Altered GI function related to altered GI function as evidenced by nutrition support - enteral nutrition (s/p trach/PEG 07/13/18) Nutrition Interventions: Food and/or Nutrient Delivery: Modify Tube Feeding, Continue NPO Nutrition Education/Counseling: Education not indicated Coordination of Nutrition Care: Continue to monitor while inpatient Goals: Patient to meet > 75% estimated needs via EN Nutrition Monitoring and Evaluation: Behavioral-Environmental Outcomes: None Identified Food/Nutrient Intake Outcomes: Enteral Nutrition Intake/Tolerance Physical Signs/Symptoms Outcomes: Biochemical Data, GI Status, Hemodynamic Status, Fluid Status or Edema, Nausea or Vomiting, Nutrition Focused Physical Findings, Skin, Weight Discharge Planning: Too soon to determine, Enteral Nutrition Contact: [phone] Speech Language Pathology Facility/Department: [facility] TELEMETRY CLINICAL BEDSIDE SWALLOW EVALUATION NAME: Kathya Hooper : 1955 ADMISSION DATE: 03/19/2021 ADMITTING DIAGNOSIS: has Closed fracture dislocation of cervical spine (HCC); Traumatic nondisp spondylolisthesis of C3 vertebra with closed fx, initial encounter (HCC); Closed wedge compression fracture of first thoracic vertebra (HCC); Central cord syndrome (HCC); Chronic latent schizophrenia (HCC); Alcohol abuse; Respiratory failure after trauma (HCC); Vitamin D insufficiency; Vertebral artery occlusion, bilateral; Hypokalemia; Ileus (HCC); TREVER (acute kidney injury) (HCC); Acute respiratory failure with hypoxia (HCC); Hospital-acquired pneumonia; Bilateral pleural effusion; Mild bibasilar atelectasis; Urinary retention; Prolonged Q-T interval on ECG; Pressure ulcer of sacral region, stage 2 (HCC); Abdominal wall abscess; 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HCC); Hypoxia; and RSV (respiratory syncytial virus infection) on their problem list. ONSET DATE: 03/19/21 Date of Eval: 03/20/2021 Evaluating Therapist: ZACHARY Cárdenas Pain: Pain Assessment Pain Level: 0 Reason for Referral Kathya Hooper was referred for a bedside swallow evaluation to assess the efficiency of his swallow function, identify signs and symptoms of aspiration and make recommendations regarding safe dietary consistencies, effective compensatory strategies, and safe eating environment. Impression: Discussed order status with nursing staff this date following chart review. Pt has a PEG tube in place for nutrition/hydration and has not received any po intake for over 2 years. He is not appropriate for bedside swallowing evaluation at this time due to medical status and level of dysphagia. Will discontinue order for swallowing evaluation at this time. ZACHARY Cárdenas, A 03/20/2021 11:57 AM Spoke with KRISTY Auguste. Updated her on plan of care. I asked about his history, pt had a severe spinal cord injury 2.5 yrs ago. Family unsure what happened. Stated he was drinking, and known to slam his head against things. Kalyani states that she is the only family [phone] Images from the original note were not included. Hospitalist Progress Note 03/20/2021 9:58 AM [phone]: Please page me for patient care issues. [phone]: Please page [facility] night Hospitalist for any issues. Subjective: Admit Date: 03/19/2021 PCP: No primary care provider on file. Room#: [id number] Interval History: He continues to have cough with minimal sputum, rhonchi audible during conversation. Denies pain. No nasuea or vomiting. He is on peg tube feed, npo by mouth. H/o dysphagia. Diet NPO ADULT TUBE FEEDING; PEG; Standard with Fiber; Continuous; 50; No; 30; Q 6 hours No data found. Medications: sodium chloride sodium chloride flush 5-40 mL IntraVENous 2 times per day aspirin 81 mg Per NG tube Daily atorvastatin 40 mg Per NG tube Nightly cloZAPine 100 mg Per G Tube BID docusate 100 mg Per NG tube BID enoxaparin 30 mg SubCUTAneous BID finasteride 5 mg Oral Daily risperiDONE 0.5 mg Oral Daily sodium chloride (Inhalant) 4 mL Nebulization BID tamsulosin 0.4 mg Oral Daily thiamine 100 mg Oral Daily LABS: CBC: Recent Labs 03/18/21 1524 03/19/21 1710 WBC 8.8 9.1 RBC 4.24* 4.23* HGB 13.6 13.1 HCT 38.3* 38.5* MCV 90.2 91.1 RDW 12.9 13.0 PLT 129* 163 BMP: Recent Labs 03/18/21 1524 03/19/21 1710 03/20/21 0023 NA 137 137 137 K 3.9 4.1 3.9 CL 104 102 104 CO2 26 26 27 BUN 18* 16 14 CREATININE 0.54 0.48* 0.51* GLUCOSE 110* 132* 106* CALCIUM 8.4 8.5 8.4 ANIONGAP 7 9 6 LIVER PROFILE:No results for input(s): AST, ALT, BILITOT, ALKPHOS, LABALBU, PROT in the last 72 hours. PT/INR: Recent Labs 03/18/21 1524 PROTIME 11.4 INR 1.1 CARDIAC ENZYMES: Recent Labs 03/19/21 1710 03/20/21 0023 TROPONINI 0.017 0.037* Procalcitonin: Lab Results Component Value Date PROCAL 0.14 03/20/2021 Objective: Vitals: BP 104/68 Pulse 102 Temp 98.9 F (37.2 C) (Temporal) Resp 22 SpO2 (!) 87% Pulse Ox: SpO2 Av.1 % Min: 86 % Max: 95 % Supplemental O2: O2 Flow Rate (L/min): 6 L/min General appearance: Awake, no acute distress noted HEENT: Eyes: No scleral icterus, pallor- Oral: Tongue is semi-moist Cardiovascular: S1S2 heard, regular tachycardia Respiratory: Normal effort, bilateral scattered rhonchi Abdomen: Soft, PEG tube+, non-distended with normal bowel sounds. Musculoskeletal: Trace pedal edema, no obvious deformities seen Skin: No visible acute rashes or lesions, peg tube site with some dried secretions. Assessment Acute hypoxic respiratory failure likely due to aspiration pneumonia COPD with acute exacerbation RSV respiratory tract infection H/o spinal cord injury with C2-6 fusion H/o trach and peg, s/p trach removal, PEG continued for dysphagia H/o anxiety and schizophrenia Plan Continue cefepime and vancomycin, sputum studies if able to get sample, urine legionella and strep antigen, check procalcitonin. Solumedrol, Appreciate ID input, bronchodilator therapy, continue tube feed. Home medications have been resumed as appropriate. DVT Prophylaxis: SQ Lovenox. GI Prophylaxis: Add lansoprazole. Advance Directive: Full Code Discharge planning: TBD . documented in this encounter [facility] Work Phone: 03-18-2021 History of Presen t illness Narrative NIF -20 documented in this encounter [facility] Work Phone: 03-18-2021 Hospital DischBoo Damon MD - 03/18/2021 Mr. Hooper was seen at the [facility] emergency department for low oxygen levels. Patient has been found to have a viral infection known as RSV. Our hospitalist team recommended that patient be given breathing treatments and oxygen as needed at the facility while recovering from RSV, and may ultimately need to be on long-term oxygen. He does not have a blood clot in his lungs, and after discussion with nursing staff and comparing their descriptions of patient to his current exam, patient is not altered off of his baseline. Please return if anything changes or he develops new symptoms or worsening hypoxia. The following attachments cannot be sent through Care Everywhere.Viral Infections (Libyan)documented in this encounter [facility] Work Phone: Evaluation note Diagnosis PEG tube malfunction (HCC)- Primary Mechanical complication of gastrostomy documented [facility] encounter [facility] Work Phone: Evaluation note* Diagnosis Feeding tube dysfunction, initial encounter- Primary documented in this encounter [facility] Work Phone: Evaluation note* Diagnosis Respiratory syncytial virus (RSV)- Primary Hypoxia Hypoxemia documented in this encounter [facility] Work Phone: Evaluation note* Diagnosis Respiratory syncytial virus (RSV)- Primary Hypoxia Hypoxemia documented in this encounter [facility] Work Phone: Evaluation note* Diagnosis PEG tube malfunction (HCC)- Primary Mechanical complication of gastrostomy documented in this encounter [facility] Work Phone: Evaluation note* Diagnosis Contusion of right hip, initial encounter- Primary documented in this encounter [facility] Work Phone: Evaluation noteNo assessment information available [facility] Work Phone: Evaluation note* Diagnosis Dyspnea, unspecified type- Primary documented in this encounter [facility]* Diagnosis Dysphagia, oropharyngeal phase Feeding difficulties Feeding difficulties and mismanagement documented in this encounter [facility]* Diagnosis Dysphagia, oropharyngeal phase- Primary Feeding difficulties Feeding difficulties and mismanagement Dysphagia, oropharyngeal phase Feeding difficulties Feeding difficulties and mismanagement [facility]* Diagnosis Dislodged gastrostomy tube- Primary documented in this encounter [facility] note* Diagnosis Chronic cough Cough documented in this encounter [facility] note* Diagnosis Chronic cough- Primary Cough Chronic cough Cough [facility]* Attachments The following attachments cannot be sent through Care Everywhere. * PEG (Percutaneous Endoscopic Gastrostomy): Post-op (Libyan) documented in this [facility] Work Phone: Hospital Discharge instructions* Attachments The following attachments cannot be sent through Care Everywhere. * Feeding Tube: General Info (Libyan) documented in this [facility] Work Phone: Hospital Discharge instructions* Instructions* Mary Cochran PA-C - 05/15/2021 Please return to the ED if you have any new or worsening symptoms. documented in this [facility] Work Phone: Hospital Discharge instructions* Attachments The following attachments cannot be sent through Care Everywhere. * Hip Pain (Libyan) * Contusion (Libyan) documented in this [facility] Work Phone: Hospital Discharge instructions* Attachments The following attachments cannot be sent through Care Everywhere. * Shortness of Breath (Dyspnea) Discharge Instructions (Libyan) documented in this [facility] Discharge instructions* Attachments The following attachments cannot be sent through Care Everywhere. * How to Care for Your Gastrostomy Tube (Libyan) [facility]No reason for referral information [facility]WTuscaraw[facility] Work Phone: Reason for visit Narrative* Imaging (Routine) - Closed Specialty Diagnoses / Procedures Referred By Contlang t Referred To Contact Radiology Diagnoses Chronic cough Procedures CT chest wo IV contrast Rashaad Smith APRN - SIM [id number] [address] Phone: tel: fax: Referral ID Status Reason Start Date Expiration Date Visits Re quested Visits Authorized [id number] Closed 06/12/2024 06/12/2025 1 1 [facility] Summary Purpose Family History No Family History Records FoundNo Family History Records FoundThere may be information available, but it has not been provided by the sender.No Family History Records FoundNo Family History Records FoundNo Family History Records FoundNo Family History Records Found Advance Directives No Advanced Directives Records FoundDocuments on File Type Date Recorded Patient Timber Trimmer Expl anation ACP-Advance Directive ACP-Advance Directive 08/07/2018 1:53 PM ACP-Power of Foreign Exchange Trader Latest Code Status on File Code Status Date Activated Date Inactivated Comments Full Code 08/15/2018 8:27 PM 08/22/2018 4:31 PM Full Code 08/15/2018 8:12 PM 08/15/2018 8:27 PM Full Code 07/08/2018 8:28 PM 08/01/2018 2:39 PM Documents on File Type Date Recorded Patient Timber Trimmer Expl anation ACP-Advance Directive ACP-Power of Foreign Exchange Trader ACP-Advance Directive 08/07/2018 1:53 PM Latest Code Status on File Code Status Date Activated Date Inactivated Comments Full Code 03/20/2021 12:17 AM Full Code 08/15/2018 8:27 PM 08/22/2018 4:31 PM Documents on File Type Date Recorded Patient Timber Trimmer Expl anation ACP-Advance Directive ACP-Power of Foreign Exchange Trader ACP-Advance Directive 03/26/2021 9:48 AM ACP-Advance Directive 08/07/2018 1:53 PM Latest Code Status on File Code Status Date Activated Date Inactivated Comments Full Code 03/20/2021 12:17 AM 03/24/2021 3:23 PM Documents on File Type Date Recorded Patient Timber Trimmer Expl anation Advance Directives and Livin g Will Advance Directives and Livin g Will 08/07/2018 1:53 PM Power of Foreign Exchange Trader Documents on File Type Date Recorded Patient Timber Trimmer Expl anation Advance Directives and Livin g Will 05/23/2022 10:48 AM Advance Directives and Livin g Will 03/19/2021 Documents on File Type Date Recorded Patient Timber Trimmer Expl anation Advance Directives and Living Will 03/19/2021 Documents on File Type Date Recorded Patient Timber Trimmer Expl 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 * Feeding Tube: General Info (Libyan) documented in this encounter Assessments Diagnosis PEG tube malfunction (HCC)- Primary Mechanical complication of gastrostomy Chief Complaint Chief Complaint Description Start Date right hip pain Preliminary chief co mplaint data, not yet signed by the author as of Review of System There may be information available, but it has not been provided by the sender. History of Present Illness There may be information available, but it has not been provided by the sender. Chief Complaint and Reason for Visit Chief Complaint CUSTODIAL LABWORK CUSTODIAL LAB WORK CUSTODIAL LABWORK CUSTODIAL LABWORK CUSTODIAL LABWORK CUSTODIAL LAB WORK CUSTODIAL LABWORK CUSTODIAL LABWORK CUSTODIAL LABWORK CUSTODIAL LABWORK CUSTODIAL LABWORK CUSTODIAL LAB WORK CUSTODIAL LABWORK NURING HOME LABWORK CUSTODIAL LABWORK CUSTODIAL LAB WORK CUSTODIAL LABWORK Chief Complaint CUSTODIAL LABWORK CUSTODIAL LABWORK CUSTODIAL LABWORK CUSTODIAL LAB WORK CUSTODIAL LABWORK NURING HOME LABWORK CUSTODIAL LABWORK CUSTODIAL LAB WORK CUSTODIAL LABWORK CUSTODIAL LABWORK CUSTODIAL LAB WORK CUSTODIAL LAB WORK CUSTODIAL BLOOD WORK CUSTODIAL LABWORK CUSTODIAL LAB WORK Chief Complaint CUSTODIAL LABWORK CUSTODIAL LABWORK CUSTODIAL LAB WORK CUSTODIAL LABWORK NURING HOME LABWORK CUSTODIAL LABWORK CUSTODIAL LAB WORK CUSTODIAL LABWORK CUSTODIAL LABWORK CUSTODIAL LAB WORK CUSTODIAL LAB WORK CUSTODIAL BLOOD WORK CUSTODIAL LABWORK LABWORK LABWORK CUSTODIAL LAB WORK Chief Complaint CUSTODIAL LABWORK CUSTODIAL LAB WORK CUSTODIAL LABWORK NURING HOME LABWORK CUSTODIAL LABWORK CUSTODIAL LAB WORK CUSTODIAL LABWORK CUSTODIAL LABWORK CUSTODIAL LAB WORK CUSTODIAL LAB WORK CUSTODIAL BLOOD WORK CUSTODIAL LABWORK LABWORK LABWORK CUSTODIAL LAB WORK Chief Complaint CUSTODIAL LAB WOR K CUSTODIAL LABWORK NURING HOME LABWORK CUSTODIAL LABWORK CUSTODIAL LAB WORK CUSTODIAL LABWORK CUSTODIAL LABWORK CUSTODIAL LAB WORK CUSTODIAL LAB WORK CUSTODIAL BLOOD WORK CUSTODIAL LABWORK LABWORK LABWORK CUSTODIAL LAB WORK Chief Complaint CUSTODIAL LAB WOR K CUSTODIAL LABWORK NURING HOME LABWORK CUSTODIAL LABWORK CUSTODIAL LAB WORK CUSTODIAL LABWORK CUSTODIAL LABWORK CUSTODIAL LAB WORK CUSTODIAL LAB WORK CUSTODIAL BLOOD WORK CUSTODIAL LABWORK LABWORK LABWORK CUSTODIAL LAB WORK LABWORK CUSTODIAL LABWORK Chief Complaint CUSTODIAL LABWORK NURING HOME LABWORK CUSTODIAL LABWORK CUSTODIAL LAB WORK CUSTODIAL LABWORK CUSTODIAL LABWORK CUSTODIAL LAB WORK CUSTODIAL LAB WORK CUSTODIAL BLOOD WORK CUSTODIAL LABWORK LABWORK LABWORK CUSTODIAL LAB WORK LABWORK CUSTODIAL LABWORK CUSTODIAL LAB WORK Chief Complaint CUSTODIAL BLOOD W ORK CUSTODIAL LABWORK CUSTODIAL LABWORK LABWORK LABWORK CUSTODIAL LAB WORK LABWORK CUSTODIAL LABWORK CUSTODIAL LAB WORK LABWORK CUSTODIAL LAB WORK CUSTODIAL LAB WORK LABWORK CUSTODIAL LAB WORK Chief Complaint CUSTODIAL BLOOD W ORK CUSTODIAL LABWORK CUSTODIAL LABWORK LABWORK LABWORK CUSTODIAL LAB WORK LABWORK CUSTODIAL LABWORK CUSTODIAL LAB WORK LABWORK CUSTODIAL LAB WORK CUSTODIAL LAB WORK LABWORK CUSTODIAL LAB WORK LABWORK Chief Complaint LABWORK LABWORK CUSTODIAL LAB WORK LABWORK CUSTODIAL LABWORK CUSTODIAL LAB WORK LABWORK CUSTODIAL LAB WORK CUSTODIAL LAB WORK LABWORK CUSTODIAL LAB WORK LABWORK CUSTODIAL LAB WORK Chief Complaint LABWORK CUSTODIAL LAB WORK LABWORK CUSTODIAL LABWORK CUSTODIAL LAB WORK LABWORK CUSTODIAL LAB WORK CUSTODIAL LAB WORK LABWORK CUSTODIAL LAB WORK LABWORK CUSTODIAL LAB WORK CUSTODIAL LABWORK Chief Complaint LABWORK CUSTODIAL LABWORK CUSTODIAL LAB WORK LABWORK CUSTODIAL LAB WORK CUSTODIAL LAB WORK LABWORK CUSTODIAL LAB WORK LABWORK CUSTODIAL LAB WORK CUSTODIAL LABWORK CUSTODIAL LABWORK LABWORK CUSTODIAL LAB WORK Chief Complaint CUSTODIAL LAB WOR K LABWORK CUSTODIAL LAB WORK CUSTODIAL LAB WORK LABWORK CUSTODIAL LAB WORK LABWORK CUSTODIAL LAB WORK CUSTODIAL LABWORK CUSTODIAL LABWORK LABWORK CUSTODIAL LAB WORK CUSTODIAL LAB WORK Chief Complaint CUSTODIAL LAB WOR K CUSTODIAL LAB WORK LABWORK CUSTODIAL LAB WORK LABWORK CUSTODIAL LAB WORK CUSTODIAL LABWORK CUSTODIAL LABWORK LABWORK CUSTODIAL LAB WORK CUSTODIAL LAB WORK LABWORK CUSTODIAL LAB WORK Chief Complaint CUSTODIAL LAB WOR K LABWORK CUSTODIAL LAB WORK LABWORK CUSTODIAL LAB WORK CUSTODIAL LABWORK CUSTODIAL LABWORK LABWORK CUSTODIAL LAB WORK CUSTODIAL LAB WORK LABWORK CUSTODIAL LAB WORK CUSTODIAL LAB WORK Chief Complaint CUSTODIAL LAB WOR K LABWORK CUSTODIAL LAB WORK CUSTODIAL LABWORK CUSTODIAL LABWORK LABWORK CUSTODIAL LAB WORK CUSTODIAL LAB WORK LABWORK CUSTODIAL LAB WORK LABWORK CUSTODIAL LAB WORK CUSTODIAL LAB WORK CUSTODIAL LABWORK CUSTODIAL LABWORK Chief Complaint LABWORK CUSTODIAL LAB WORK CUSTODIAL LABWORK CUSTODIAL LABWORK LABWORK CUSTODIAL LAB WORK CUSTODIAL LAB WORK LABWORK CUSTODIAL LAB WORK LABWORK CUSTODIAL LAB WORK CUSTODIAL LAB WORK CUSTODIAL LABWORK LABWORK CUSTODIAL LABWORK Chief Complaint LABWORK CUSTODIAL LAB WORK CUSTODIAL LAB WORK LABWORK CUSTODIAL LAB WORK LABWORK CUSTODIAL LAB WORK CUSTODIAL LAB WORK CUSTODIAL LABWORK LABWORK CUSTODIAL LABWORK CUSTODIAL LAB WORK Chief Complaint CUSTODIAL LAB WOR K LABWORK CUSTODIAL LAB WORK CUSTODIAL LAB WORK CUSTODIAL LABWORK LABWORK CUSTODIAL LABWORK CUSTODIAL LAB WORK LABWORK LABWORK LABWORK LABWORK CUSTODIAL LABWORK CUSTODIAL LAB WORK LABWORK LABWORK Chief Complaint LABWORK CUSTODIAL LAB WORK CUSTODIAL LAB WORK CUSTODIAL LABWORK LABWORK CUSTODIAL LABWORK CUSTODIAL LAB WORK LABWORK LABWORK LABWORK LABWORK CUSTODIAL LABWORK CUSTODIAL LAB WORK LABWORK LABWORK CUSTODIAL LABWORK Chief Complaint CUSTODIAL LAB WOR K CUSTODIAL LAB WORK CUSTODIAL LABWORK LABWORK CUSTODIAL LABWORK CUSTODIAL LAB WORK LABWORK LABWORK LABWORK LABWORK CUSTODIAL LABWORK CUSTODIAL LAB WORK LABWORK LABWORK CUSTODIAL LABWORK CUSTODIAL LAB WORK Chief Complaint CUSTODIAL LABWORK LABWORK CUSTODIAL LABWORK CUSTODIAL LAB WORK LABWORK LABWORK LABWORK LABWORK CUSTODIAL LABWORK CUSTODIAL LAB WORK LABWORK LABWORK CUSTODIAL LABWORK CUSTODIAL LAB WORK CUSTODIAL LABWORK CUSTODIAL LAB WORK Chief Complaint LABWORK CUSTODIAL LABWORK CUSTODIAL LAB WORK LABWORK LABWORK LABWORK LABWORK CUSTODIAL LABWORK CUSTODIAL LAB WORK LABWORK LABWORK CUSTODIAL LABWORK CUSTODIAL LAB WORK CUSTODIAL LABWORK LABWORK CUSTODIAL LAB WORK Chief Complaint LABWORK LABWORK LABWORK LABWORK CUSTODIAL LABWORK CUSTODIAL LAB WORK LABWORK LABWORK CUSTODIAL LABWORK CUSTODIAL LAB WORK CUSTODIAL LABWORK LABWORK CUSTODIAL LAB WORK LABWORK CUSTODIAL LABWORK Chief Complaint LABWORK CUSTODIAL LABWORK CUSTODIAL LAB WORK LABWORK LABWORK CUSTODIAL LABWORK CUSTODIAL LAB WORK CUSTODIAL LABWORK LABWORK CUSTODIAL LAB WORK LABWORK CUSTODIAL LABWORK LABWORK LABWORK Chief Complaint CUSTODIAL LABWORK CUSTODIAL LAB WORK LABWORK LABWORK CUSTODIAL LABWORK CUSTODIAL LAB WORK CUSTODIAL LABWORK LABWORK CUSTODIAL LAB WORK LABWORK CUSTODIAL LABWORK LABWORK LABWORK LABWORK CUSTODIAL LAB WORK CUSTODIAL LAB WORK CUSTODIAL LABWORK Chief Complaint CUSTODIAL LABWORK CUSTODIAL LAB WORK LABWORK LABWORK CUSTODIAL LABWORK CUSTODIAL LAB WORK CUSTODIAL LABWORK LABWORK CUSTODIAL LAB WORK LABWORK CUSTODIAL LABWORK LABWORK LABWORK LABWORK CUSTODIAL LAB WORK CUSTODIAL LAB WORK CUSTODIAL LABWORK CUSTODIAL LABWORK Chief Complaint LABWORK LABWORK CUSTODIAL LABWORK CUSTODIAL LAB WORK CUSTODIAL LABWORK LABWORK CUSTODIAL LAB WORK LABWORK CUSTODIAL LABWORK LABWORK LABWORK LABWORK CUSTODIAL LAB WORK CUSTODIAL LAB WORK CUSTODIAL LABWORK CUSTODIAL LABWORK CUSTODIAL LAB WORK LABWORK Chief Complaint CUSTODIAL LABWORK CUSTODIAL LAB WORK CUSTODIAL LABWORK LABWORK CUSTODIAL LAB WORK LABWORK CUSTODIAL LABWORK LABWORK LABWORK LABWORK CUSTODIAL LAB WORK CUSTODIAL LAB WORK CUSTODIAL LABWORK CUSTODIAL LABWORK CUSTODIAL LAB WORK LABWORK CUSTODIAL LABWORK Chief Complaint CUSTODIAL LABWORK LABWORK CUSTODIAL LAB WORK LABWORK CUSTODIAL LABWORK LABWORK LABWORK LABWORK CUSTODIAL LAB WORK CUSTODIAL LAB WORK CUSTODIAL LABWORK CUSTODIAL LABWORK CUSTODIAL LAB WORK LABWORK CUSTODIAL LABWORK CUSTODIAL LAB WORK Chief Complaint LABWORK CUSTODIAL LABWORK LABWORK LABWORK LABWORK CUSTODIAL LAB WORK CUSTODIAL LAB WORK CUSTODIAL LABWORK CUSTODIAL LABWORK CUSTODIAL LAB WORK LABWORK CUSTODIAL LABWORK CUSTODIAL LAB WORK CUSTODIAL LABWORK CUSTODIAL LAB WORK Chief Complaint LABWORK CUSTODIAL LABWORK CUSTODIAL LAB WORK CUSTODIAL LABWORK CUSTODIAL LAB WORK CUSTODIAL LABWORK CUSTODIAL LABWORK CUSTODIAL LABWORK CUSTODIAL LABWORK CUSTODIAL LAB WORK LABWORK LABWORK CUSTODIAL LABWORK Chief Complaint CUSTODIAL LABWORK CUSTODIAL LAB WORK CUSTODIAL LABWORK CUSTODIAL LABWORK CUSTODIAL LABWORK CUSTODIAL LABWORK CUSTODIAL LAB WORK LABWORK LABWORK CUSTODIAL LABWORK LABWORK CUSTODIAL LAB WORK CUSTODIAL LAB WORK Chief Complaint CUSTODIAL LABWORK CUSTODIAL LABWORK CUSTODIAL LABWORK CUSTODIAL LABWORK CUSTODIAL LAB WORK LABWORK LABWORK CUSTODIAL LABWORK LABWORK CUSTODIAL LAB WORK CUSTODIAL LAB WORK CUSTODIAL LABWORK CUSTODIAL LABWORK CUSTODIAL LAB WORK CUSTODIAL LAB WORK Chief Complaint CUSTODIAL LABWORK CUSTODIAL LABWORK CUSTODIAL LABWORK CUSTODIAL LAB WORK LABWORK LABWORK CUSTODIAL LABWORK LABWORK CUSTODIAL LAB WORK CUSTODIAL LAB WORK CUSTODIAL LABWORK CUSTODIAL LABWORK CUSTODIAL LAB WORK CUSTODIAL LAB WORK Chief Complaint CUSTODIAL LABWORK CUSTODIAL LABWORK CUSTODIAL LABWORK CUSTODIAL LAB WORK LABWORK LABWORK CUSTODIAL LABWORK LABWORK CUSTODIAL LAB WORK CUSTODIAL LAB WORK CUSTODIAL LABWORK CUSTODIAL LABWORK CUSTODIAL LAB WORK CUSTODIAL LAB WORK CUSTODIAL LABWORK LABWORK Chief Complaint CUSTODIAL LAB WOR K LABWORK LABWORK CUSTODIAL LABWORK LABWORK CUSTODIAL LAB WORK CUSTODIAL LAB WORK CUSTODIAL LABWORK CUSTODIAL LABWORK CUSTODIAL LAB WORK CUSTODIAL LAB WORK CUSTODIAL LABWORK LABWORK CUSTODIAL LAB WORK LABWORK Chief Complaint CUSTODIAL LAB WOR K LABWORK LABWORK CUSTODIAL LABWORK LABWORK CUSTODIAL LAB WORK CUSTODIAL LAB WORK CUSTODIAL LABWORK CUSTODIAL LABWORK CUSTODIAL LAB WORK CUSTODIAL LAB WORK CUSTODIAL LABWORK LABWORK CUSTODIAL LAB WORK LABWORK CUSTODIAL LABWORK CUSTODIAL LAB WORK Chief Complaint LABWORK LABWORK CUSTODIAL LABWORK LABWORK CUSTODIAL LAB WORK CUSTODIAL LAB WORK CUSTODIAL LABWORK CUSTODIAL LABWORK CUSTODIAL LAB WORK CUSTODIAL LAB WORK CUSTODIAL LABWORK LABWORK CUSTODIAL LAB WORK LABWORK CUSTODIAL LABWORK CUSTODIAL LAB WORK LABWORK\ Chief Complaint LABWORK CUSTODIAL LABWORK LABWORK CUSTODIAL LAB WORK CUSTODIAL LAB WORK CUSTODIAL LABWORK CUSTODIAL LABWORK CUSTODIAL LAB WORK CUSTODIAL LAB WORK CUSTODIAL LABWORK LABWORK CUSTODIAL LAB WORK LABWORK CUSTODIAL LABWORK CUSTODIAL LAB WORK LABWORK\ LABWORK Chief Complaint CUSTODIAL LAB WOR K CUSTODIAL LAB WORK CUSTODIAL LABWORK CUSTODIAL LABWORK CUSTODIAL LAB WORK CUSTODIAL LAB WORK CUSTODIAL LABWORK LABWORK CUSTODIAL LAB WORK LABWORK CUSTODIAL LABWORK CUSTODIAL LAB WORK LABWORK\ LABWORK CUSTODIAL LAB WORK LABWORK Chief Complaint CUSTODIAL LAB WOR K CUSTODIAL LABWORK CUSTODIAL LABWORK CUSTODIAL LAB WORK CUSTODIAL LAB WORK CUSTODIAL LABWORK LABWORK CUSTODIAL LAB WORK LABWORK CUSTODIAL LABWORK CUSTODIAL LAB WORK LABWORK\ LABWORK CUSTODIAL LAB WORK LABWORK LABWORK Chief Complaint CUSTODIAL LABWORK CUSTODIAL LABWORK CUSTODIAL LAB WORK CUSTODIAL LAB WORK CUSTODIAL LABWORK LABWORK CUSTODIAL LAB WORK LABWORK CUSTODIAL LABWORK CUSTODIAL LAB WORK LABWORK\ LABWORK CUSTODIAL LAB WORK LABWORK CUSTODIAL LABWORK LABWORK Chief Complaint CUSTODIAL LAB WOR K CUSTODIAL LABWORK LABWORK CUSTODIAL LAB WORK LABWORK CUSTODIAL LABWORK CUSTODIAL LAB WORK LABWORK\ LABWORK CUSTODIAL LAB WORK LABWORK CUSTODIAL LABWORK LABWORK CUSTODIAL LABWORK CUSTODIAL LAB WORK LABWORK CUSTODIAL LAB WORK Chief Complaint CUSTODIAL LABWORK LABWORK CUSTODIAL LAB WORK LABWORK CUSTODIAL LABWORK CUSTODIAL LAB WORK LABWORK\ LABWORK CUSTODIAL LAB WORK LABWORK CUSTODIAL LABWORK LABWORK CUSTODIAL LABWORK CUSTODIAL LAB WORK LABWORK CUSTODIAL LAB WORK LABWORK Chief Complaint CUSTODIAL LAB WOR K LABWORK CUSTODIAL LABWORK CUSTODIAL LAB WORK LABWORK\ LABWORK CUSTODIAL LAB WORK LABWORK CUSTODIAL LABWORK LABWORK CUSTODIAL LABWORK CUSTODIAL LAB WORK LABWORK CUSTODIAL LAB WORK LABWORK LABWORK Chief Complaint CUSTODIAL LAB WOR K LABWORK\ LABWORK CUSTODIAL LAB WORK LABWORK CUSTODIAL LABWORK LABWORK CUSTODIAL LABWORK CUSTODIAL LAB WORK LABWORK CUSTODIAL LAB WORK LABWORK LABWORK LABWORK LABWORK LABWORK Chief Complaint LABWORK\ LABWORK CUSTODIAL LAB WORK LABWORK CUSTODIAL LABWORK LABWORK CUSTODIAL LABWORK CUSTODIAL LAB WORK LABWORK CUSTODIAL LAB WORK LABWORK LABWORK LABWORK LABWORK LABWORK LABWORK Chief Complaint CUSTODIAL LAB WOR K LABWORK CUSTODIAL LABWORK LABWORK CUSTODIAL LABWORK CUSTODIAL LAB WORK LABWORK CUSTODIAL LAB WORK LABWORK LABWORK LABWORK LABWORK LABWORK LABWORK LABWORK Chief Complaint CUSTODIAL LABWORK LABWORK CUSTODIAL LABWORK CUSTODIAL LAB WORK LABWORK CUSTODIAL LAB WORK LABWORK LABWORK LABWORK LABWORK LABWORK LABWORK LABWORK CUSTODIAL LAB WORK LABWORK Chief Complaint LABWORK CUSTODIAL LABWORK CUSTODIAL LAB WORK LABWORK CUSTODIAL LAB WORK LABWORK LABWORK LABWORK LABWORK LABWORK LABWORK LABWORK CUSTODIAL LAB WORK LABWORK LABWORK LABWORK Chief Complaint LABWORK CUSTODIAL LAB WORK LABWORK LABWORK LABWORK LABWORK LABWORK LABWORK LABWORK CUSTODIAL LAB WORK LABWORK LABWORK LABWORK CUSTODIAL LAB WORK CUSTODIAL LAB WORK Chief Complaint CUSTODIAL LAB WOR K LABWORK LABWORK LABWORK LABWORK LABWORK LABWORK LABWORK CUSTODIAL LAB WORK LABWORK LABWORK LABWORK CUSTODIAL LAB WORK CUSTODIAL LAB WORK LABWORK Chief Complaint CUSTODIAL LABWORK CUSTODIAL LAB WORK CUSTODIAL LAB WORK CUSTODIAL LABWORK LABWORK CUSTODIAL LAB WORK LABWORK CUSTODIAL LABWORK CUSTODIAL LAB WORK LABWORK\ LABWORK CUSTODIAL LAB WORK LABWORK CUSTODIAL LABWORK LABWORK CUSTODIAL LABWORK Chief Complaint CUSTODIAL LABWORK CUSTODIAL LAB WORK CUSTODIAL LAB WORK CUSTODIAL LABWORK LABWORK CUSTODIAL LAB WORK LABWORK CUSTODIAL LABWORK CUSTODIAL LAB WORK LABWORK\ LABWORK CUSTODIAL LAB WORK LABWORK CUSTODIAL LABWORK LABWORK CUSTODIAL LABWORK CUSTODIAL LAB WORK Chief Complaint Admit Date CUSTODIAL LAB WORK March 11 5:00am CUSTODIAL LAB WORK March 18 5:00am LABWORK March 25, 2024 5:00am LABWORK April 01, 2024 5 :00am CUSTODIAL LAB WORK April 08, 2024 5:00am LABWORK April 15, 2024 5:00am LABWORK April 22, 2024 5:00am CUSTODIAL LAB WORK April 29 5:00am LABWORK May 06, 2024 5: 00am CUSTODIAL LAB WORK May 13, 2024 4:00am LABWORK May 20, 2024 5 :00am CUSTODIAL LAB WORK May 27, 2024 5:00am LABWORK June 03, 2024 5 :00am LABWORK June 07, 2024 5 :00am CUSTODIAL LAB WORK June 10 5:00am LABWORK June 17, 2024 5:00am CUSTODIAL LAB WORK June 24 5:00am Chief Complaint Admit Date LABWORK April 01, 2024 5 :00am CUSTODIAL LAB WORK April 08, 2024 5:00am LABWORK April 15, 2024 5:00am LABWORK April 22, 2024 5:00am CUSTODIAL LAB WORK April 29 5:00am LABWORK May 06, 2024 5: 00am CUSTODIAL LAB WORK May 13, 2024 4:00am LABWORK May 20, 2024 5 :00am CUSTODIAL LAB WORK May 27, 2024 5:00am LABWORK June 03, 2024 5 :00am LABWORK June 07, 2024 5 :00am CUSTODIAL LAB WORK June 10 5:00am LABWORK June 17, 2024 5:00am CUSTODIAL LAB WORK June 24 5:00am CUSTODIAL LAB WORK June 27 2:00am CUSTODIAL LAB WORK July 01, 2024 4: 00am LABWORK July 08, 2024 5:0 0am CUSTODIAL LAB WORK July 16, 2024 4 :00am Chief Complaint Admit Date CUSTODIAL LAB WORK April 08, 2024 5:00am LABWORK April 15, 2024 5:00am LABWORK April 22, 2024 5:00am CUSTODIAL LAB WORK April 29 5:00am LABWORK May 06, 2024 5: 00am CUSTODIAL LAB WORK May 13, 2024 4:00am LABWORK May 20, 2024 5 :00am CUSTODIAL LAB WORK May 27, 2024 5:00am LABWORK June 03, 2024 5 :00am LABWORK June 07, 2024 5 :00am CUSTODIAL LAB WORK June 10 5:00am LABWORK June 17, 2024 5:00am CUSTODIAL LAB WORK June 24 5:00am CUSTODIAL LAB WORK June 27 2:00am CUSTODIAL LAB WORK July 01, 2024 4: 00am LABWORK July 08, 2024 5:0 0am CUSTODIAL LAB WORK July 15, 2024 5 :00am CUSTODIAL LAB WORK July 16, 2024 4 :00am Chief Complaint Admit Date LABWORK April 15, 2024 5:00am LABWORK April 22, 2024 5:00am CUSTODIAL LAB WORK April 29 5:00am LABWORK May 06, 2024 5: 00am CUSTODIAL LAB WORK May 13, 2024 4:00am LABWORK May 20, 2024 5 :00am CUSTODIAL LAB WORK May 27, 2024 5:00am LABWORK June 03, 2024 5 :00am LABWORK June 07, 2024 5 :00am CUSTODIAL LAB WORK June 10 5:00am LABWORK June 17, 2024 5:00am CUSTODIAL LAB WORK June 24 5:00am CUSTODIAL LAB WORK June 27 2:00am CUSTODIAL LAB WORK July 01, 2024 4: 00am LABWORK July 08, 2024 5:0 0am CUSTODIAL LAB WORK July 15, 2024 5 :00am CUSTODIAL LAB WORK July 16, 2024 4 :00am CUSTODIAL LAB WORK July 22, 2024 5 :00am Chief Complaint Admit Date LABWORK April 22, 2024 5:00am CUSTODIAL LAB WORK April 29 5:00am LABWORK May 06, 2024 5: 00am CUSTODIAL LAB WORK May 13, 2024 4:00am LABWORK May 20, 2024 5 :00am CUSTODIAL LAB WORK May 27, 2024 5:00am LABWORK June 03, 2024 5 :00am LABWORK June 07, 2024 5 :00am CUSTODIAL LAB WORK June 10 5:00am LABWORK June 17, 2024 5:00am CUSTODIAL LAB WORK June 24 5:00am CUSTODIAL LAB WORK June 27 2:00am CUSTODIAL LAB WORK July 01, 2024 4: 00am LABWORK July 08, 2024 5:0 0am CUSTODIAL LAB WORK July 15, 2024 5 :00am CUSTODIAL LAB WORK July 16, 2024 4 :00am CUSTODIAL LAB WORK July 22, 2024 5 :00am LABWORK July 29, 2024 5:0 0am Chief Complaint Admit Date CUSTODIAL LAB WORK May 13, 2024 4:00am LABWORK May 20, 2024 5 :00am CUSTODIAL LAB WORK May 27, 2024 5:00am LABWORK June 03, 2024 5 :00am LABWORK June 07, 2024 5 :00am CUSTODIAL LAB WORK June 10 5:00am LABWORK June 17, 2024 5:00am CUSTODIAL LAB WORK June 24 5:00am CUSTODIAL LAB WORK June 27 2:00am CUSTODIAL LAB WORK July 01, 2024 4: 00am LABWORK July 08, 2024 5:0 0am CUSTODIAL LAB WORK July 15, 2024 5 :00am CUSTODIAL LAB WORK July 16, 2024 4 :00am CUSTODIAL LAB WORK July 22, 2024 5 :00am LABWORK July 29, 2024 5:0 0am CUSTODIAL LAB WORK August 05, 2024 5: 00am CUSTODIAL LAB WORK August 12, 2024 5 :00am Chief Complaint Admit Date LABWORK May 20, 2024 5 :00am CUSTODIAL LAB WORK May 27, 2024 5:00am LABWORK June 03, 2024 5 :00am LABWORK June 07, 2024 5 :00am CUSTODIAL LAB WORK June 10 5:00am LABWORK June 17, 2024 5:00am CUSTODIAL LAB WORK June 24 5:00am CUSTODIAL LAB WORK June 27 2:00am CUSTODIAL LAB WORK July 01, 2024 4: 00am LABWORK July 08, 2024 5:0 0am CUSTODIAL LAB WORK July 15, 2024 5 :00am CUSTODIAL LAB WORK July 16, 2024 4 :00am CUSTODIAL LAB WORK July 22, 2024 5 :00am LABWORK July 29, 2024 5:0 0am CUSTODIAL LAB WORK August 05, 2024 5: 00am CUSTODIAL LAB WORK August 12, 2024 5 :00am LABWORK August 26, 2024 5:0 0am Chief Complaint Admit Date LABWORK June 03, 2024 5 :00am LABWORK June 07, 2024 5 :00am CUSTODIAL LAB WORK June 10 5:00am LABWORK June 17, 2024 5:00am CUSTODIAL LAB WORK June 24 5:00am CUSTODIAL LAB WORK June 27 2:00am CUSTODIAL LAB WORK July 01, 2024 4: 00am LABWORK July 08, 2024 5:0 0am CUSTODIAL LAB WORK July 15, 2024 5 :00am CUSTODIAL LAB WORK July 16, 2024 4 :00am CUSTODIAL LAB WORK July 22, 2024 5 :00am LABWORK July 29, 2024 5:0 0am CUSTODIAL LAB WORK August 05, 2024 5: 00am CUSTODIAL LAB WORK August 12, 2024 5 :00am CUSTODIAL LAB WORK August 19, 2024 4 :00am CUSTODIAL LAB WORK August 23, 2024 5 :00am LABWORK August 26, 2024 5:0 0am LABWORK September 09, 2024 5:00a m Additional Source Comments (unrecognized sect ion and content) No Status Records FoundNo Status Records FoundNo Status Records FoundNo Status Records FoundNo Status Records FoundNo Status Records Found INFORMATION SOURCE (unrecogn ized section and content) DATE CREATED AUTHOR 09/04/2018 [facility] DATE CREATED AUTHOR AUTHOR'S ORGANIZ ATION 10/06/2018 [facility] DATE CREATED AUTHOR AUTHOR'S ORGANIZ ATION 03/26/2021 [facility] DATE CREATED AUTHOR AUTHOR'S ORGANIZ ATION 05/21/2021 [facility] DATE CREATED AUTHOR AUTHOR'S ORGANIZ ATION 06/28/2024 [facility] DATE CREATED AUTHOR AUTHOR'S ORGANIZ ATION 10/03/2024 [facility] Source Comments (unrecognize d section and content) In the event this informatio n is protected by the Federal Confidentiality of Alcohol and Drug Abuse Patient Records regulations: The Federal rules restrict any use of the information to criminally investigate or prosecute any alcohol or drug abuse patient.[facility] Reason for Visit (unrecogniz ed section and content) Reason Comments Feeding Tube Problem PEG tube problem Reason For Visit Description Start Date New - 1st visit with practice Preliminary reason f or visit data, not yet signed by the author as of right hip pain Reason Comments G Tube Complications Reason Comments Feeding Tube Problem pt states his feedi ng tube needs to be replaced Reason Comments Shortness of Breath Reason Comments Other peg tube dislodgemen t Reason Comments Hip Pain Reason Comments Altered Mental Status Reason Comments feeding tube replacement Pt states his f eeding tube came loose when he was sleeping. Pt states the site is not painful and tube is still in pt Reason Onset Date Comments Other 05/03/2024 Ordered Prescriptions (unrec ognized section and content) Prescription Sig Dispensed Refills Start Date End Da te predniSONE (DELTASONE) 20 MG tablet Take 2 tablets by mouth daily for 5 days 10 tablet 0 03/24/2021 03/29/2021 Scheduled Active and Recently Administ ered Medications (unrecognized section and content) Medication Order 03/22/2021 03/23/2021 03/24/2021 aspirin chewable tablet 81 mg 81 mg, Per NG tube, DAILY, First dose on 03/20/21 at 0900 0754 (Given - Provider: Tra Pearl RN) 0914 (Given - Provider: Jovana Armstrong RN) 0914 (Given - Provider: Sandeep Thompson RN) atorvastatin (LIPITOR) tablet 40 mg 40 mg, Per NG tube, NIGHTLY, First dose on 03/19/21 at 2323 2207 (Given - Provider: Nancy Solorio RN) 2148 (Given - Provider: Nancy Solorio RN) 2100 (Due) cefepime (MAXIPIME) 2000 mg IVPB minibag (CANCELED) 2,000 mg, IntraVENous, at 12.5 mL/hr, Administer over 240 Minutes, EVERY 8 HOURS, First dose (after last reorder) on Mon03/20/21 at 1400, For 14 doses, >> Dose adjusted for CrCl of > 100, on 03/20/2021, to Cefepime 2gm q8h ext inf (per P&T / Antibiotic Stewardship guidelines). << 0330 (Stopped - Provider: Francesca Cortez RN)0645 (New Bag - Provider: Francesca Cortez RN)1050 (Stopped - Provider: Tra Pearl RN)1458 (New Bag - Provider: Tra Pearl RN)2207 (Stopped - Provider: Nancy Solorio RN)2244 (New Bag - Provider: Nancy Solorio RN) 0401 (Stopped - Provider: Nancy Solorio RN)0639 (New Bag - Provider: Nancy Solorio, KUSHAL)1140 (Stopped - Provider: Jovana Armstrong RN)1448 (New Bag - Provider: Jovana Armstrong, KUSHAL)1935 (Stopped - Provider: Nancy Solorio, KUSHAL)2149 (New Bag - Provider: Nancy Solorio, KUSHAL) 0200 (Stopped - Provider: Nancy Solorio RN)0640 (New Bag - Provider: Nancy Solorio, KUSHAL)1040 (Stopped - Provider: Sandeep Thompson RN) cefepime (MAXIPIME) 2000 mg IVPB minibag 2,000 mg, IntraVENous, at 100 mL/hr, Administer over 30 Minutes, EVERY 8 HOURS, First dose (after last modification) on Mon03/24/21 at 1400, For 2 doses, >> Dose adjusted for CrCl of > 100, on 03/20/2021, to Cefepime 2gm q8h ext inf (per P&T / Antibiotic Stewardship guidelines). << 1400 (Due)2200 (Due) cloZAPine (CLOZARIL) tablet 50 mg (CANCELED) 50 mg, Per G Tube, 2 TIMES DAILY, First dose (after last modification) on Mon03/21/21 at 2100, Avoid changes in caffeine intake. 0754 (Given - Provider: Tra Pearl RN)2205 (Given - Provider: Nancy Solorio RN) 0914 (Given - Provider: Jovana Armstrong, KUSHAL) cloZAPine (CLOZARIL) tablet 75 mg 75 mg, Per G Tube, 2 TIMES DAILY, First dose (after last modification) on Mon03/23/21 at 2100, Avoid changes in caffeine intake. 214 (Given - Provider: Nancy Solorio RN) 0914 (Given - Provider: Sandeep Thompson, KUSHAL)2099 (Due) docusate (COLACE) 50 MG/5ML liquid 100 mg 100 mg, Per NG tube, 2 TIMES DAILY, First dose on Mon03/19/21 at 2323 0754 (Given - Provider: Tra Pearl RN)2204 (Given - Provider: Nancy Solorio RN) 09 (Given - Provider: Jovana Armstrong, KUSHAL)2148 (Given - Provider: Nancy Solorio, KUSHAL) 0914 (Given - Provider: Sandeep Thompson, KUSHAL)2099 (Due) enoxaparin (LOVENOX) injection 30 mg 30 mg, SubCUTAneous, 2 TIMES DAILY, First dose on Mon03/19/21 at 2323, Pharmacy to dose if renal insufficiency present. 0753 (Given - Provider: Tra Pearl RN)2206 (Given - Provider: Nancy Solorio RN) 0940 (Given - Provider: Jovana Armstrong, KUSHAL)2148 (Given - Provider: Nancy Solorio, KUSHAL) 0914 (Given - Provider: Sandeep Thompson, KUSHAL)2099 (Due) finasteride (PROSCAR) tablet 5 mg 5 mg, Oral, DAILY, First dose on Mon03/20/21 at 0900, Women should not handle crushed or broken finasteride tablets when they are or may potentially be , due to potential risk to the fetus. 0754 (Given - Provider: Tra Pearl RN) 0914 (Given - Provider: Jovana Armstrong, KUSHAL) 0914 (Given - Provider: Sandeep Thompson, KUSHAL) ipratropium-albuterol (DUONEB) nebulizer solution 1 ampule 1 ampule, Inhalation, EVERY 4 HOURS WHILE AWAKE, First dose on 03/20/21 at 1200 0953 (Given - Provider: Amelie Taylor [facility])1356 (Given - Provider: Amelie Taylor [facility])1648 (Given - Provider: Amelie Taylor [facility])2212 (Given - Provider: Claire Lagos [facility]) 0841 (Given - Provider: Ana Cabrera [facility])1213 (Given - Provider: Ana Cabrera [facility] [facility])1622 (Given - Provider: Ana Cabrera [employer])2037 (Given - Provider: Perla Loyola [facility]) 1020 (Given - Provider: Gabriel Soares [facility])1200 (Due)1600 (Due)2000 (Due) lansoprazole (PREVACID SOLUTAB) disintegrating tablet 30 mg 30 mg, PEG Tube, DAILY BEFORE BREAKFAST, First dose on 03/21/21 at 0700, Do not crush or break. 0754 (Given - Provider: Tra Pearl RN) 0639 (Given - Provider: Nancy Solorio RN) 0641 (Given - Provider: Nancy Solorio, KUSHAL) methylPREDNISolone sodium (SOLU-MEDROL) injection 40 mg (CANCELED) 40 mg, IntraVENous, EVERY 12 HOURS, First dose (after last modification) on 03/21/21 at 1445 0137 (Given - Provider: Francesca Cortez RN)1458 (Given - Provider: Tra Pearl RN) 0405 (Given - Provider: Nancy Solorio, KUSHAL)1448 (Given - Provider: Jovana Armstrong, KUSHAL) 0245 (Given - Provider: Nancy Solorio, KUSHAL) predniSONE (DELTASONE) tablet 40 mg 40 mg, Oral, DAILY, First dose on Mon03/24/21 at 0930 0914 (Given - Provider: Sandeep Thompson, KUSHAL) risperiDONE (RISPERDAL) tablet 0.5 mg 0.5 mg, Oral, NIGHTLY, First dose (after last modification) on 03/22/21 at 2100 2209 (Given - Provider: Nancy Solorio RN) 2150 (Given - Provider: Nancy Solorio RN) 2100 (Due) sodium chloride (Inhalant) 3 % nebulizer solution 4 mL 4 mL, Nebulization, 2 TIMES DAILY, First dose on Mon03/19/21 at 2323 1003 (Given - Provider: Amelie Taylor [employer])2215 (Given - Provider: Claire Lagos [employer]) 0841 (Given - Provider: Ana Cabrera [employer])2051 (Given - Provider: Perla Loyola [employer]) 1200 (Due - Provider: Gabriel Soares [employer])2100 (Due) sodium chloride flush 0.9 % injection 5-40 mL 5-40 mL, IntraVENous, EVERY 12 HOURS SCHEDULED (2 times per day), First dose on 03/20/21 at 0900, For Line Patency: Peripheral IV = 5 mL; Midline or Central Line = 10 mL/lumen. If following IV push medication, administer flush at same rate as the IV push. Flush volume is determined by type of infusion therapy being given. For non-viscous solutions use: Peripheral IV = 5 mL Midline or Central Line = 10 mL/lumen For viscous solutions (i.e. blood components, parenteral nutrition, contrast media, or after obtaining blood sample) use: Peripheral IV = 10 mL Midline or Central Line = 20 mL/lumen 0755 (Given - Provider: Tra Pearl RN)2206 (Given - Provider: Nancy Solorio RN) 1055 (Given - Provider: Jovana Armstrong RN)2150 (Given - Provider: Nancy Solorio RN) 0918 (Given - Provider: Sandeep Thompson, KUSHAL)2100 (Due) tamsulosin (FLOMAX) capsule 0.4 mg 0.4 mg, Oral, DAILY, First dose on 03/20/21 at 0900, Do not crush or break. 0754 (Given - Provider: Tra Pearl RN) 0914 (Given - Provider: Jovana Armstrong, KUSHAL) 0914 (Given - Provider: Sandeep Thompson, KUSHAL) thiamine tablet 100 mg 100 mg, Oral, DAILY, First dose on 03/20/21 at 0900 0754 (Given - Provider: Tra Pearl, RN) 1055 (Given - Provider: Jovana Armstrong, RN) 0914 (Given - Provider: Sandeep Thompson, KUSHAL) vancomycin (VANCOCIN) 1,250 mg in dextrose 5 % 250 mL IVPB (CANCELED) 1,250 mg (14.8 mg/kg), IntraVENous, at 125 mL/hr, Administer over 120 Minutes, EVERY 12 HOURS, First dose (after last reorder) on 03/20/21 at 1300 0137 (New Bag - Provider: Francesca Cortez, KUSHAL)0407 (Stopped - Provider: Francesca Cortez RN) PRN Medication Order 03/22/2021 03/23/2021 03/24/2021 0.9 % sodium chloride infusion 25 mL, IntraVENous, at 100 mL/hr, PRN, If patient receiving piggyback infusions without ordered maintenance IV fluids or with frequent/long duration piggyback infusions, Starting on 03/20/21 at 0015, Administer at the same rate as the piggyback being infused. acetaminophen (TYLENOL) suppository 650 mg(Linked Group 1) 650 mg, Rectal, EVERY 6 HOURS PRN, Pain Mild (1-3), Fever, For temp greater than 100.4 F (38 C), Starting on 03/20/21 at 0015, Administer if oral route cannot be used. acetaminophen (TYLENOL) tablet 650 mg(Linked Group 1) 650 mg, Oral, EVERY 6 HOURS PRN, Pain Mild (1-3), Fever, For temp greater than 100.4 F (38 C), Starting on 03/20/21 at 0015, Maximum dose of acetaminophen is 4000 mg from all sources in 24 hours. albuterol (PROVENTIL) nebulizer solution 2.5 mg 2.5 mg, Nebulization, EVERY 4 HOURS PRN, Wheezing, Shortness of Breath, Starting on Mon03/19/21 at 2322 melatonin tablet 3 mg 3 mg, Per G Tube, NIGHTLY PRN, sleeplessness, Starting on Mon03/19/21 at 2330 ondansetron (ZOFRAN) injection 4 mg(Linked Group 2) 4 mg, IntraVENous, EVERY 6 HOURS PRN, Nausea, Vomiting, Starting on 03/20/21 at 0015, Administer if oral route cannot be used. ondansetron (ZOFRAN-ODT) disintegrating tablet 4 mg(Linked Group 2) 4 mg, Oral, EVERY 8 HOURS PRN, Nausea, Vomiting, Starting on 03/20/21 at 0015 polyethylene glycol (GLYCOLAX) packet 17 g 17 g, Oral, DAILY PRN, Constipation, Starting on 03/20/21 at 0015, First line therapy for constipation sodium chloride flush 0.9 % injection 5-40 mL 5-40 mL, IntraVENous, PRN, Line Care, After every IV line use, Starting on 03/20/21 at 0015, For Line Patency: Peripheral IV = 5 mL; Midline or Central Line = 10 mL/lumen. If following IV push medication, administer flush at same rate as the IV push. Flush volume is determined by type of infusion therapy being given. For non-viscous solutions use: Peripheral IV = 5 mL Midline or Central Line = 10 mL/lumen For viscous solutions (i.e. blood components, parenteral nutrition, contrast media, or after obtaining blood sample) use: Peripheral IV = 10 mL Midline or Central Line = 20 mL/lumen Linked Groups Order Group 1: acetaminophen (TYLENOL) tablet 650 mgJump to med 650 mg, Oral, EVERY 6 HOURS PRN, Pain Mild (1-3), Fever, For temp greater than 100.4 F (38 C), Starting on 03/20/21 at 0015
Maximum dose of acetaminophen is 4000 mg from all sources in 24 hours.
Or acetaminophen (TYLENOL) suppository 650 mgJump to med 650 mg, Rectal, EVERY 6 HOURS PRN, Pain Mild (1-3), Fever, For temp greater than 100.4 F (38 C), Starting on 03/20/21 at 0015
Administer if oral route cannot be used.
Group 2: ondansetron (ZOFRAN-ODT) disintegrating tablet 4 mgJump to med 4 mg, Oral, EVERY 8 HOURS PRN, Nausea, Vomiting, Starting on 03/20/21 at 0015 Or ondansetron (ZOFRAN) injection 4 mgJump to med 4 mg, IntraVENous, EVERY 6 HOURS PRN, Nausea, Vomiting, Starting on 03/20/21 at 0015
Administer if oral route cannot be used.
Scheduled Medication Order 09/30/2023 10/01/2023 10/02/2023 sodium chloride 0.9 % bolus 250 mL (COMPLETED) 250 mL, IntraVENous, at 250 mL/hr, Administer over 1 Hours, Once, On 10/02/23 at 1035, For 1 dose 1117 (New Bag - Prov ider: Eloisa Alfaro RN)1217 (Stopped - Provider: Mami Lantigua RN) sodium chloride 0.9% (NS) flush 5-40 mL 5-40 mL, IntraVENous, Every 12 hours, First dose on 10/02/23 at 1035, For Line Patency: Peripheral IV = 5 mL; Midline or Central Line = 10 mL/lumen. If following IV push medication, administer flush at same rate as the IV push. Flush volume is determined by type of infusion therapy being given. For non-viscous solutions use: Peripheral IV = 5 mL Midline or Central Line = 10 mL/lumen For viscous solutions (i.e. blood components, parenteral nutrition, contrast media, or after obtaining blood sample) use: Peripheral IV = 10 mL Midline or Central Line = 20 mL/lumen 1035 (Given - Provid er: Eloisa Alfaro RN) Continuous Medication Order 09/30/2023 10/01/2023 10/02/2023 sodium chloride 0.9 % infusion 50 mL/hr, IntraVENous, Continuous, Starting on Mon10/02/23 at 1035 1114 (New Bag - Prov ider: Eloisa Alfaro RN)1419 (Stopped - Provider: Mami Lantigua RN) PRN Medication Order 09/30/2023 10/01/2023 10/02/2023 sodium chloride 0.9 % infusion 5-250 mL/hr, IntraVENous, PRN, if patient receiving piggyback infusions and maintenance fluids are not ordered OR KVO fluids to protect IV site / prevent frequent line interruptions / long duration, Starting on Mon10/02/23 at 1034, For piggyback infusion, administer at same rate as piggyback for a total of 25 mL. Enter 25 mL into dose field and piggyback rate into rate field of order. If piggyback is infusing at a rate less than 100 mL/hr, enter 25 mL into dose field and 100 mL/hr into rate field of order. For KVO fluids, enter rate of 20 mL/hr or less into rate field of order. sodium chloride 0.9% (NS) flush 5-40 mL 5-40 mL, IntraVENous, PRN, line care, After every IV line use, Starting on Mon10/02/23 at 1034, For Line Patency: Peripheral IV = 5 mL; Midline or Central Line = 10 mL/lumen. If following IV push medication, administer flush at same rate as the IV push. Flush volume is determined by type of infusion therapy being given. For non-viscous solutions use: Peripheral IV = 5 mL Midline or Central Line = 10 mL/lumen For viscous solutions (i.e. blood components, parenteral nutrition, contrast media, or after obtaining blood sample) use: Peripheral IV = 10 mL Midline or Central Line = 20 mL/lumen Goals (unrecognized section and content) Goals may be documented in a n alternate sectionGoals may be documented in an alternate sectionGoals may be documented in an alternate sectionGoals may be documented in an alternate sectionGoals may be documented in an alternate sectionGoals may be documented in an alternate sectionGoals may be documented in an alternate sectionGoals may be documented in an alternate sectionGoals may be documented in an alternate sectionGoals may be documented in an alternate sectionGoals may be documented in an alternate sectionGoals may be documented in an alternate sectionGoals may be documented in an alternate sectionGoals may be documented in an alternate sectionGoals may be documented in an alternate sectionGoals may be documented in an alternate sectionGoals may be documented in an alternate sectionGoals may be documented in an alternate sectionGoals may be documented in an alternate sectionGoals may be documented in an alternate sectionGoals may be documented in an alternate sectionGoals may be documented in an alternate sectionGoals may be documented in an alternate sectionGoals may be documented in an alternate sectionGoals may be documented in an alternate sectionGoals may be documented in an alternate sectionGoals may be documented in an alternate sectionGoals may be documented in an alternate sectionGoals may be documented in an alternate sectionGoals may be documented in an alternate sectionGoals may be documented in an alternate sectionGoals may be documented in an alternate sectionGoals may be documented in an alternate sectionGoals may be documented in an alternate sectionGoals may be documented in an alternate sectionGoals may be documented in an alternate sectionGoals may be documented in an alternate sectionGoals may be documented in an alternate sectionGoals may be documented in an alternate sectionGoals may be documented in an alternate sectionGoals may be documented in an alternate sectionGoals may be documented in an alternate sectionGoals may be documented in an alternate sectionGoals may be documented in an alternate sectionGoals may be documented in an alternate sectionGoals may be documented in an alternate sectionGoals may be documented in an alternate sectionGoals may be documented in an alternate sectionGoals may be documented in an alternate sectionGoals may be documented in an alternate sectionGoals may be documented in an alternate sectionGoals may be documented in an alternate sectionGoals may be documented in an alternate sectionGoals may be documented in an alternate sectionGoals may be documented in an alternate sectionGoals may be documented in an alternate sectionGoals may be documented in an alternate sectionGoals may be documented in an alternate sectionGoals may be documented in an alternate sectionGoals may be documented in an alternate sectionGoals may be documented in an alternate sectionGoals may be documented in an alternate sectionGoals may be documented in an alternate sectionGoals may be documented in an alternate sectionGoals may be documented in an alternate sectionGoals may be documented in an alternate sectionGoals may be documented in an alternate sectionGoals may be documented in an alternate sectionGoals may be documented in an alternate sectionGoals may be documented in an alternate sectionGoals may be documented in an alternate sectionGoals may be documented in an alternate sectionGoals may be documented in an alternate sectionGoals may be documented in an alternate sectionGoals may be documented in an alternate sectionGoals may be documented in an alternate sectionGoals may be documented in an alternate sectionGoals may be documented in an alternate sectionGoals may be documented in an alternate sectionGoals may be documented in an alternate sectionGoals may be documented in an alternate sectionGoals may be documented in an alternate sectionGoals may be documented in an alternate sectionGoals may be documented in an alternate sectionGoals may be documented in an alternate sectionGoals may be documented in an alternate sectionGoals may be documented in an alternate sectionGoals may be documented in an alternate sectionGoals may be documented in an alternate sectionGoals may be documented in an alternate sectionGoals may be documented in an alternate sectionGoals may be documented in an alternate sectionGoals may be documented in an alternate sectionGoals may be documented in an alternate sectionGoals may be documented in an alternate sectionGoals may be documented in an alternate sectionGoals may be documented in an alternate sectionGoals may be documented in an alternate sectionGoals may be documented in an alternate sectionGoals may be documented in an alternate sectionGoals may be documented in an alternate sectionGoals may be documented in an alternate sectionGoals may be documented in an alternate sectionGoals may be documented in an alternate section Care Teams (unrecognized sec tion and content) Team Status: Inactive Member Role Status Dates Renard GARLAND Attending Provider Active Team Status: Inactive Member Role Status Dates Renard GARLAND Attending Provider, Referring Provi gelacio Active Team Status: Active Member Role Status Dates Renard GARLAND Attending Provider Active Team Status: Active Member Role Status Dates Renard GARLAND Attending Provider, Referring Provi gelacio Active Team Status: Inactive Member Role Status Dates Renard Burgos Attending Provider Active Team Status: Inactive Member Role Status Dates Renard Burgos Attending Provider, Referring Provider Active Team Status: Active Member Role Status Dates Renard Burgos Attending Provider Active Stenocaptioner Relationship Specialty Start Date End Date Renard Burgos [address] [place] [id number] PCP - General Internal Medicine 10/16/23 Stenocaptioner Relationship Specialty Start Date End Date Renard Burgos [address] [place] [id number] PCP - General Internal Medicine 10/16/23 Stenocaptioner Relationship Specialty Start Date End Date Renard Burgos [address] [place] [id number] PCP - General Internal Medicine 10/16/23 Stenocaptioner Relationship Specialty Start Date End Date ShellieholaRenard [address] [facility] [address] [place] [address] PCP - General Internal Medicine 10/16/23 Team Status: Inactive Member Role Status Dates Renard GARLAND Attending Provider Active Sta rt: March 11, 2024 End: March 11, 2024 Team Status: Inactive Member Role Status Dates Renard GARLAND Attending Provider Active Sta rt: March 18, 2024 End: March 18, 2024 Team Status: Inactive Member Role Status Dates Renard GARLAND Attending Provider Active Sta rt: March 25, 2024 End: March 25, 2024 Team Status: Active Member Role Status Dates Renard GARLAND Attending Provider Active Sta rt: April 01, 2024 Team Status: Active Member Role Status Dates Renard GARLAND Attending Provider Active Sta rt: April 08, 2024 Team Status: Inactive Member Role Status Dates Renard GARLAND Attending Provider Active Sta rt: April 15, 2024 End: April 15, 2024 Team Status: Inactive Member Role Status Dates Renard GARLAND Attending Provider Active Sta rt: April 22, 2024 End: April 22, 2024 Team Status: Inactive Member Role Status Dates Renard GARLAND Attending Provider Active Sta rt: April 29, 2024 End: April 29, 2024 Team Status: Inactive Member Role Status Dates Renard GARLAND Attending Provider Active Sta rt: May 06, 2024 End: May 06, 2024 Team Status: Inactive Member Role Status Dates Renard GARLAND Attending Provider Active Sta rt: May 13, 2024 End: May 13, 2024 Renard GARLAND Referring Provider Active Sta rt: May 13, 2024 End: May 13, 2024 Team Status: Inactive Member Role Status Dates Renard GARLAND Attending Provider Active Sta rt: May 20, 2024 End: May 20, 2024 Team Status: Inactive Member Role Status Dates Renard GARLAND Attending Provider Active Sta rt: May 27, 2024 End: May 27, 2024 Team Status: Inactive Member Role Status Dates Renard GARLAND Attending Provider Active Sta rt: June 03, 2024 End: June 03, 2024 Team Status: Active Member Role Status Dates Renard GARLAND Attending Provider Active Sta rt: June 07, 2024 Team Status: Active Member Role Status Dates Renard GARLAND Attending Provider Active Sta rt: June 10, 2024 Team Status: Active Member Role Status Dates Renard GARLAND Attending Provider Active Sta rt: June 17, 2024 Team Status: Active Member Role Status Dates Renard GARLAND Attending Provider Active Sta rt: June 24, 2024 Team Status: Active Member Role Status Dates Renard GARLAND Attending Provider Active Sta rt: June 27, 2024 Team Status: Active Member Role Status Dates Renard GARLAND Attending Provider Active Sta rt: July 01, 2024 Team Status: Inactive Member Role Status Dates Renard GARLAND Attending Provider Active Sta rt: June 10, 2024 End: June 10, 2024 Team Status: Inactive Member Role Status Dates Renard GARLAND Attending Provider Active Sta rt: June 17, 2024 End: June 17, 2024 Team Status: Inactive Member Role Status Dates Renard GARLAND Attending Provider Active Sta rt: June 24, 2024 End: June 24, 2024 Team Status: Inactive Member Role Status Dates Renard GARLAND Attending Provider Active Sta rt: June 07, 2024 End: June 07, 2024 Team Status: Inactive Member Role Status Dates Renard GARLAND Attending Provider Active Sta rt: June 27, 2024 End: June 27, 2024 Team Status: Active Member Role Status Dates Renard GARLAND Attending Provider Active Sta rt: July 01, 2024 Renard GARLAND Referring Provider Active Sta rt: July 01, 2024 Team Status: Active Member Role Status Dates Renard GARLAND Attending Provider Active Sta rt: July 08, 2024 Team Status: Active Member Role Status Dates Renard GARLAND Attending Provider Active Sta rt: July 15, 2024 Team Status: Active Member Role Status Dates Renard GARLAND Attending Provider Active Sta rt: July 16, 2024 Renard GARLAND Referring Provider Active Sta rt: July 16, 2024 Team Status: Active Member Role Status Dates Renard GARLAND Attending Provider Active Sta rt: July 22, 2024 Team Status: Active Member Role Status Dates Renard GARLAND Attending Provider Active Sta rt: July 29, 2024 Team Status: Inactive Member Role Status Dates Renard GARLAND Attending Provider Active Sta rt: July 01, 2024 End: July 01, 2024 Renard GARLAND Referring Provider Active Sta rt: July 01, 2024 End: July 01, 2024 Team Status: Inactive Member Role Status Dates Renard GARLAND Attending Provider Active Sta rt: July 16, 2024 End: July 16, 2024 Renard GARLAND Referring Provider Active Sta rt: July 16, 2024 End: July 16, 2024 Team Status: Inactive Member Role Status Dates Renard GARLAND Attending Provider Active Sta rt: July 08, 2024 End: July 08, 2024 Team Status: Inactive Member Role Status Dates Renard GARLAND Attending Provider Active Sta rt: July 15, 2024 End: July 15, 2024 Team Status: Active Member Role Status Dates Renard GARLAND Attending Provider Active Sta rt: August 05, 2024 Team Status: Inactive Member Role Status Dates Renard GARLAND Attending Provider Active Sta rt: July 22, 2024 End: July 22, 2024 Team Status: Inactive Member Role Status Dates Renard GARLAND Attending Provider Active Sta rt: July 29, 2024 End: July 29, 2024 Team Status: Active Member Role Status Dates Renard GARLAND Attending Provider Active Sta rt: August 12, 2024 Team Status: Inactive Member Role Status Dates Renard GARLAND Attending Provider Active Sta rt: August 05, 2024 End: August 05, 2024 Team Status: Inactive Member Role Status Dates Renard GARLAND Attending Provider Active Sta rt: August 12, 2024 End: August 12, 2024 Team Status: Active Member Role Status Dates Renard GARLAND Attending Provider Active Sta rt: August 19, 2024 Team Status: Active Member Role Status Dates Renard GARLAND Attending Provider Active Sta rt: August 23, 2024 Team Status: Active Member Role Status Dates Renard GARLAND Attending Provider Active Sta rt: August 26, 2024 Team Status: Active Member Role Status Dates Renard GARLAND Attending Provider Active Sta rt: September 02, 2024 Team Status: Active Member Role Status Dates Renard GARLAND Attending Provider Active Sta rt: September 09, 2024 Stenocaptioner Relationship Specialty Start Date End Date Renard Burgos [address] [id number] PCP - General Internal Medicine 10/16/23 Team Status: Inactive Member Role Status Dates Renard Burgos GILL Attending Provider Active Sta rt: August 26, 2024 End: August 26, 2024 Team Status: Active Member Role Status Dates Renard Burgos GILL Attending Provider Active Sta rt: September 11, 2024 Team Status: Inactive Member Role Status Dates Renard Shelliediego GARLAND Attending Provider Active Sta rt: August 19, 2024 End: August 19, 2024 Renard Shelliediego GARLAND Referring Provider Active Sta rt: August 19, 2024 End: August 19, 2024 Team Status: Inactive Member Role Status Dates Renard Amezquitahola GARLAND Attending Provider Active Sta rt: August 23, 2024 End: August 23, 2024 Team Status: Active Member Role Status Dates Renard Shelliediego GARLAND Attending Provider Active Sta rt: September 16, 2024 Team Status: Active Member Role Status Dates Renard Aliriohola GARLAND Attending Provider Active Sta rt: September 24, 2024 Team Status: Inactive Member Role Status Dates Renard Shelliediego GARLAND Attending Provider Active Sta rt: September 09, 2024 End: September 09, 2024 FOR RECORDS PERTAINING TO PATIENTS WHO ARE OR HAVE BEEN ENROLLED IN A CHEMICAL DEPENDENCY/SUBSTANCEABUSE PROGRAM, SOME INFORMATION MAY BE OMITTED. This clinical summary was aggregated from multiple sources. Caution should be exercised in using it in the provision of clinical care. This summary normalizes information from multiple sources, and as a consequence, information in this document may materially change the coding, format and clinical context of patient data. In addition, data may be omitted in some cases. CLINICAL DECISIONS SHOULD BE BASED ON THE PRIMARY CLINICAL RECORDS. [employer] provides no warranty or guarantee of the accuracy or completeness of information in this document.
--- OUTSIDE RECORDS SUMMARY | 2024-10-07 04:39 | XMS RPT_ITS | CCD ---
Author Organization [facility] Care Team Providers [employer] Teammate Name Role Phone JORDAN OREILLY Attending Unavailable PROVIDER, UNKNOWN Referring Unavailable Nathanael Cazares Primary Care Unavailable PROVIDER, UNKNOWN Referring Unavailable Nathanael Cazares Primary Care Unavailable Jaime Lindquist Attending Unavailable Unavailable Primary Care Provider UnavailBethany Navarrete Primary Care Provider Jarvis Kendall MD Unavailable [phone] Bethany Russell MD Primary Care Provider Unavailable Primary Care Provider Unavailclifton Latif MD, Jenn Edwin Primary Care Provider [phone] Unavailable Primary Care Provider UnavailRenard Mccann Primary Care Provider [phone] Unavailable Primary Care Provider UnavailRENARD Mccann Attending [...] tablet via peg tube as needed ACETAMINOPHEN [id number] Ana Diesch [employer] albuterol 0.83 mg/ml inhalation solution (1 source) beta2-Adrenergic Agonist Start: 03-19-2021 albut veronica (PROVENTIL) nebulizer solution 2.5 mg albuterol 0.833 mg/ml / ipratropium bromide 0.167 mg/ml inhalation solution (18 sources) Anticholinergic, beta2-Adrenergic Agonist Start: 03-20-2021 ipratropium-alb utero l (DUONEB) nebulizer solution 1 ampule Start: 05-22-2019 IPRATROPIUM-AL BUTEROL 0.5-2.5 (3) MG/3ML SOLN 3ml via nebulizer every 4 hours as needed IPRATROPIUM-ALBUTEROL [id number] Ana Diesch [employer] Start: 08-22-2018 take 3 mL by inhalat ion every four hours ipratropium-albuterol (DUONEB) 0.5-2.5 (3) MG/3ML SOLN nebulizer solution Inhale 3 mLs into the lungs every 4 hours 360 mL 0 08/22/2018 Active aspirin 81 mg chewable tablet (9 sources) Platelet Aggregation Inhibitor, Nonsteroidal Anti-inflammatory Drug Start: 05-22-2019 ASPIRIN ADULT LOW STRENGTH 81 MG CHEW one tablet via peg tube daily ASPIRIN [id number] Ana Diesch [employer] Start: 08-23-2018 aspirin 81 MG chewable tablet 1 tablet by Per NG tube route daily 30 tablet 3 08/23/2018 Active atorvastatin 40 mg oral tablet (9 sources) HMG-CoA Reductase Inhibitor Start: 05-22-2019 ATORVASTATIN CALCIUM 40 MG TABS one tablet via peg tube daily ATORVASTATIN CALCIUM [id number] Ana Diesch [employer] Start: 08-22-2018 atorvastatin ( LIPITOR) 40 MG tablet 1 tablet by Per NG tube route nightly 30 tablet 3 08/22/2018 Active castor oil 0.788 mg/mg / gambian balsam 0.087 mg/mg topical ointment (7 sources) Standardized Chemical Allergen Start: 08-22-2018 Balsam [place] O il (VENELEX) OINT ointment Apply topically [...] 250mg via peg tube twice daily CLOZAPINE [id number] [facility] Start: 08-22-2018 cloZAPine (AILYN ZARIL) 100 MG tablet 1 tablet by Per G Tube route 2 times daily 30 tablet 3 08/22/2018 Active cloZAPine (Cloza ril) 100 MG tablet Take 225 mg by mouth 2 times daily. Active take 1 tablet by [facility] once daily cloZAPine (Clozaril) 50 MG tablet Take 50 mg by mouth daily. Active docusate sodium 10 mg/ml ora l suspension (18 sources) Start: 05-22-2019 DOCU 50 MG/5ML LIQD 5ml via peg tube twice daily DOCUSATE SODIUM [id number] [facility] Start: 08-22-2018 docusate (COLA CE) 50 MG/5ML liquid 10 mLs by Per NG tube route 2 times daily 0 08/22/2018 Active take 1 capsule by [facility] twice daily docusate sodium (Colace) 100 MG [...] one tablet via peg tube nightly MELATONIN [id number] Ana Stevenson [employer] Start: 08-22-2018 melatonin 3 MG TABS tablet 1 tablet by Per G Tube route nightly as needed (sleeplessness) 0 08/22/2018 Active Multiple Vitamins-Minerals (CENTRUM/CERTA-JAVIER WITH MINERALS ORAL) solution (7 sources) Start: [...] needed. 0 08/23/2018 Active polyethylene glycol 3350 00011 mg powder for oral solution (1 source) [...] Sig (Normalized) Sig (Original) barium sulfate (Varibar [place], Varibar Honey) 40 % suspension 5 mL [...] SUPP every 24 hours as needed BISACODYL [id number] Ana Diesch [employer] Start: 05-22-2019 BISACODYL EC 5 MG TBEC one tablet via peg tube daily as needed BISACODYL [id number] Ana Diesch [employer] chlorhexidine gluconate 1.2 mg/ml mouthwash (10 sources) Start: 05-22-2019 PERIDEX 0.12 % SOLN 15ml twice daily CHLORHEXIDINE GLUCONATE [id number] [facility] chlorhexidine (P eridex) 0.12 % solution Use 15 mL in the mouth or throat if needed for wound care. Active cholecalciferol 1000 unt oral tablet (16 sources) Vitamin D Start: 05-22-2019 VITAMIN D3 25 MCG (1000 UT) TABS one tablet via peg tube daily CHOLECALCIFEROL [id number] Ana Diesch [employer] cholecalciferol (SM Vitamin D3) 25 MCG (1000 UT) tablet Take 1,000 Units by mouth daily. Active dextromethorphan hydrobromide 2 mg/ml / guaiFENesin 20 mg/ml oral solution (1 source) Uncompetitive V-dajlgy-T-aspartate Receptor Antagonist, Sigma-1 Agonist Start: 05-22-2019 ROBITUSSIN PEAK COLD DM SYRP 5ml via peg tube every 4 hours as needed for cough DEXTROMETHORPHAN-GUAIFENESIN SYRP [id number] Ana Stevenson LPN magnesium hydroxide 240 mg/ml oral suspension (1 source) Start: 05-22-2019 MILK OF MAGNESIA CONCENTRATE SUSP 30ml via peg tube every 24 hours MAGNESIUM HYDROXIDE SUSP [id number] Ana Stevenson LPN methylPREDNISolone 40 mg injection (2 sources) Corticosteroid Start: 03-20-2021 End: 03-24-2021 methylPREDNISolone sodium (SOLU-MEDROL) injection 40 mg MULTIPLE VITAMINS-MINERALS (1 source) Start: 05-22-2019 MENS MULTIVITAMIN TABS one tablet via peg tube daily MULTIPLE VITAMINS-MINERALS [id number] Ana Stevenson LPN POLYETHYLENE GLYCOL 1450 (1 source) Start: 05-22-2019 POLYETHYLENE GLYCOL 1450 POW D 17 grams via peg tube twice daily POLYETHYLENE GLYCOL 1450 [id number] Ana Stevenson LPN SENNOSIDES-DOCUSATE SODIUM (1 source) Start: 05-22-2019 SENNA PLUS 8.6-50 MG TABS on e tablet via peg tube daily SENNOSIDES-DOCUSATE SODIUM [id number] Ana Stevenson LPN 50 ml sodium chloride [...] Onset: 9 07-11-2018 Other aftercare (2 sources) emt intermediate (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; Translations: [alf (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] Onset: 9 Episodic Other aftercare (2 sources) Other parts counterman (current) drug therapy; Translations: [Other parts counterman (current) drug therapy] Onset: 4 Episodic Other aftercare (1 source) alf (current) use of antibiotics; Translations: [emt intermediate (current) use of antibiotics] Onset: 5 Episodic Other aftercare (1 source) emt intermediate (current) use of 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; Translations: [emt intermediate (current) use of 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] Onset: 5 Episodic [...] Absolute Lymph 3.13 X10 3/uL Normal 0.83-4.51 [facility] Comment on above: Order Comment: 109-1 Performed By: #### L 100.0100 ####[facility] [address] [place], [address] Absolute Neut 5.6 X10 3/uL Normal 2.0-7.7 [facility] Comment on above: Order Comment: 109-1 Performed By: #### L 100.0100 ####[facility] [address] [place], [address] Basophils/100 WBC (Bld) 0.6 % Normal 0-1 [facility] Comment on above: Order Comment: 109-1 Performed By: #### L 100.0100 ####[facility] [address] [place], [address] Eosinophils/100 WBC (Bld) 0.7 % Normal 0-5 [facility] Comment on above: Order Comment: 109-1 Performed By: #### L 100.0100 ####[facility] [address] [place], [address] Erythrocyte distribution width (RBC) [Ratio] 13.0 % Normal 11.6-14.6 [facility] Comment on above: Order Comment: 109-1 Performed By: #### L 100.0100 ####[facility] [address] [place], [address] Hematocrit (Bld) [Volume fraction] 46.9 % Normal 40-54 [facility] Comment on above: Order Comment: 109-1 Performed By: #### L 100.0100 ####[facility] [address] [place], [address] Hemoglobin (Bld) [Mass/Vol] 15.3 g/dL Normal 13.0-16.5 [facility] Comment on above: Order Comment: 109-1 Performed By: #### L 100.0100 ####[facility] [address] [place], [address] IG% 0.300 Normal 0.0-0.9 [facility] Comment on above: Order Comment: 109-1 Result Comment: IG% - Immature Granulocytes (promyelocytes, myelocytes andmetamyelocytes) > 1% indicates that a LEFT SHIFT is Present. Performed By: #### L 100.0100 ####[facility] [address] [place], [address] Lymphocytes/100 WBC (Bld) 31.7 % Normal 19-41 [facility] Comment on above: Order Comment: 109-1 Performed By: #### L 100.0100 ####[facility] [address] [place], [address] MCH (RBC) [Entitic mass] 29.7 pg Normal 27.0-32.0 [facility] Comment on above: Order Comment: 109-1 Performed By: #### L 100.0100 ####[facility] [address] [place], [address] MCHC (RBC) [Mass/Vol] 32.6 g/dL Normal 32-36 [facility] Comment on above: Order Comment: 109-1 Performed By: #### L 100.0100 ####[facility] [address] [place], [address] MCV (RBC) [Entitic vol] 91.1 fL Normal 80-94 [facility] Comment on above: Order Comment: 109-1 Performed By: #### L 100.0100 ####[facility] [address] [place], [address] Monocytes/100 WBC (Bld) 10.4 % High 0-10 [facility] Comment on above: Order Comment: 109-1 Performed By: #### L 100.0100 ####[facility] [address] [place], [address] Neutrophils/100 WBC (Bld) 56.3 % Normal 47-70 [facility] Comment on above: Order Comment: 109-1 Performed By: #### L 100.0100 ####[facility] [address] [place], [address] Nucleated RBC (Bld) [#/Vol] 0 10*3/uL Normal 0-5 [facility] Comment on above: Order Comment: 109-1 Performed By: #### L 100.0100 ####[facility] [address] [place], [address] Platelet mean volume (Bld) [Entitic vol] 11.7 fL Normal 6.2-12.0 [facility] Comment on above: Order Comment: 109-1 Performed By: #### L 100.0100 ####[facility] [address] [place], [address] Platelets (Bld) [#/Vol] 208 10*3/uL Normal 150-450 [facility] Comment on above: Order Comment: 109-1 Performed By: #### L 100.0100 ####[facility] [address] [place], [address] RBC (Bld) [#/Vol] 5.15 10*6/uL Normal 4.6-6.2 [facility] Comment on above: Order Comment: 109-1 Performed By: #### L 100.0100 ####[facility] [address] [place], [address] RDW SD 42.7 fl Normal 35.1-43.9 [facility] Comment on above: Order Comment: 109-1 Performed By: #### L 100.0100 ####[facility] [address] [place], [address] WBC (Bld) [#/Vol] 9.9 10*3/uL Normal 4.4-11.0 [facility] Comment on above: Order Comment: 109-1 Performed By: #### L 100.0100 ####[facility] [address] [place], [address] Absolute lymphocyte countOrd ered By: Renard Burgos on 09-24-2024 Lymphocytes Auto (Unsp spec) [#/Vol] 1.97 10*3/uL 0.83-4.51 [facility] Absolute neutrophil countOrd ered By: Renard Burgos on 09-24-2024 Neutrophils (Bld) [#/Vol] 6.8 10*3/uL 2.0-7.7 [facility] Automated blood erythrocyte countOrdered By: Renard Burgos on 09-24-2024 RBC (Bld) [#/Vol] 4.48 10*6/uL Low 4.6-6.2 [facility] Comment on above: Order Comment: 109 Performed By: #### L 100.0100 ####[facility] [address] [place], [address] Automated blood hematocrit ( percentage)Ordered By: Renard Burgos on 09-24-2024 Hematocrit (Bld) [Volume fraction] 40.4 % Normal 40-54 [facility] Comment on above: Order Comment: 109 Performed By: #### L 100.0100 ####[facility] [address] [place], [address] Automated lymphocyte count a s percentage of total leukocytesOrdered By: Renard Burgos on 09-24-2024 Lymphocytes/100 WBC Auto (Unsp spec) 20.5 % 19-41 [facility] Basophil percentageOrdered B y: Renard Burgos on 09-24-2024 Basophils/100 WBC (Bld) 0.5 % Normal 0-1 [facility] Comment on above: Order Comment: 109 Performed By: #### L 100.0100 ####[facility] [address] [place], [address] CBC W/Diff, Automatedon 08-30 Absolute Lymph 1.97 X10 3/uL Normal 0.83-4.51 [facility] Comment on above: Order Comment: 109 Performed By: #### L 100.0100 ####[facility] [address] [place], [address] Absolute Neut 6.8 X10 3/uL Normal 2.0-7.7 [facility] Comment on above: Order Comment: 109 Performed By: #### L 100.0100 ####[facility] [address] [place], [address] IG% 0.300 Normal 0.0-0.9 [facility] Comment on above: Order Comment: 109 Result Comment: IG% - Immature Granulocytes (promyelocytes, myelocytes andmetamyelocytes) > 1% indicates that a LEFT SHIFT is Present. Performed By: #### L 100.0100 ####[facility] [address] [place], [address] Lymphocytes/100 WBC (Bld) 20.5 % Normal 19-41 [facility] Comment on above: Order Comment: 109 Performed By: #### L 100.0100 ####[facility] [address] [place], [address] Nucleated RBC (Bld) [#/Vol] 0 10*3/uL Normal 0-5 [facility] Comment on above: Order Comment: 109 Performed By: #### L 100.0100 ####[facility] [address] [place], [address] RDW SD 42.9 fl Normal 35.1-43.9 [facility] Comment on above: Order Comment: 109 Performed By: #### L 100.0100 ####[facility] [address] [place], [address] Eosinophil percentageOrdered By: Renard Burgos on 09-24-2024 Eosinophils/100 WBC (Bld) 0.5 % Normal 0-5 [facility] Comment on above: Order Comment: 109 Performed By: #### L 100.0100 ####[facility] [address] [place], [address] Erythrocyte distribution wid th ratioOrdered By: Renard Burgos on 09-24-2024 Erythrocyte distribution width (RBC) [Ratio] 13.1 % Normal 11.6-14.6 [facility] Comment on above: Order Comment: 109 Performed By: #### L 100.0100 ####[facility] [address] [place], [address] Erythrocyte distribution wid th standard deviationOrdered By: Renard Burgos on 09-24-2024 Erythrocyte distribution width (RBC) [Ratio] 42.9 fl 35.1-43.9 [facility] Hemoglobin measurementOrdere d By: Renard Burgos on 09-24-2024 Hemoglobin (Bld) [Mass/Vol] 13.4 g/dL Normal 13.0-16.5 [facility] Comment on above: Order Comment: 109 Performed By: #### L 100.0100 ####[facility] [address] [place], [address] Immature granulocytes/100 WB C Auto (Bld)Ordered By: Renard Burgos on 09-24-2024 Immature granulocytes/100 WBC (Bld) 0.300 % 0.0-0.9 [facility] Comment on above: IG% - Immature Granu locytes (promyelocytes, myelocytes and metamyelocytes) > 1% indicates that a LEFT SHIFT is Present. MCV (mean corpuscular volume ) determinationOrdered By: Renard Burgos on 09-24-2024 MCV (RBC) [Entitic vol] 90.2 fL Normal 80-94 [facility] Comment on above: Order Comment: 109 Performed By: #### L 100.0100 ####[facility] [address] [place], [place], [phone] Mean corpuscular hemoglobin (MCH) determinationOrdered By: Renard Burgos on 09-24-2024 MCH (RBC) [Entitic mass] 29.9 pg Normal 27.0-32.0 [facility] Comment on above: Order Comment: 109 Performed By: #### L 100.0100 ####[facility] [address] [place], [place], [phone] Mean corpuscular hemoglobin concentration (MCHC) determinationOrdered By: Renard Burgos on 09-24-2024 MCHC (RBC) [Mass/Vol] 33.2 g/dL Normal 32-36 [facility] Comment on above: Order Comment: 109 Performed By: #### L 100.0100 ####[facility] [address] [place], [place], [phone] Mean platelet volume determi nationOrdered By: Renard Burgos on 09-24-2024 Platelet mean volume (Bld) [Entitic vol] 11.3 fL Normal 6.2-12.0 [facility] Comment on above: Order Comment: 109 Performed By: #### L 100.0100 ####[facility] [address] [place], [address] Monocyte percentageOrdered B y: Renard Burgos on 09-24-2024 Monocytes/100 WBC (Bld) 7.2 % Normal 0-10 [facility] Comment on above: Order Comment: 109 Performed By: #### L 100.0100 ####[facility] [address] [place], [address] Neutrophil percentageOrdered By: Renard Burgos on 09-24-2024 Neutrophils/100 WBC (Bld) 71.0 % High 47-70 [facility] Comment on above: Order Comment: 109 Performed By: #### L 100.0100 ####[facility] [address] [place], [address] Nucleated red blood cell per centageOrdered By: Renard Burgos on 09-24-2024 Nucleated RBC/100 WBC (Bld) [Ratio] 0 % 0-5 [facility] Platelet countOrdered By: Garrick Bhatt on 09-24-2024 Platelets (Bld) [#/Vol] 187 10*3/uL Normal 150-450 [facility] Comment on above: Order Comment: 109 Performed By: #### L 100.0100 ####[facility] [address] [place], [address] White blood cell (WBC) count Ordered By: Renard Burgos on 09-24-2024 WBC (Bld) [#/Vol] 9.6 10*3/uL Normal 4.4-11.0 [facility] Comment on above: Order Comment: 109 Performed By: #### L 100.0100 ####[facility] [address] [place], [address] Absolute lymphocyte countOrd ered By: Renard Burgos on 09-16-2024 Lymphocytes Auto (Unsp spec) [#/Vol] 2.44 10*3/uL 0.83-4.51 [facility] Absolute neutrophil countOrd ered By: Renard Amezquitahola on 09-16-2024 Neutrophils (Bld) [#/Vol] 5.5 10*3/uL 2.0-7.7 [facility] Automated lymphocyte count a s percentage of total leukocytesOrdered By: Renard Burgos on 09-16-2024 Lymphocytes/100 WBC Auto (Unsp spec) 27.7 % 19-41 [facility] Basophil percentageOrdered B y: Renard Burgos on 09-16-2024 Basophils/100 WBC (Bld) 0.8 % 0-1 [facility] CBC W/Diff, Automatedon 08-29 Absolute Lymph 2.44 X10 3/uL Normal 0.83-4.51 [facility] Comment on above: Order Comment: 109.1 Performed By: #### L 100.0100 ####[facility] [address] [place], [address] Absolute Neut 5.5 X10 3/uL Normal 2.0-7.7 [facility] Comment on above: Order Comment: 109.1 Performed By: #### L 100.0100 ####[facility] [address] [place], [address] Basophils/100 WBC (Bld) 0.8 % Normal 0-1 [facility] Comment on above: Order Comment: 109.1 Performed By: #### L 100.0100 ####[facility] [address] [place], [address] Eosinophils/100 WBC (Bld) 0.7 % Normal 0-5 [facility] Comment on above: Order Comment: 109.1 Performed By: #### L 100.0100 ####[facility] [address] [place], [address] Erythrocyte distribution width (RBC) [Ratio] 13.1 % Normal 11.6-14.6 [facility] Comment on above: Order Comment: 109.1 Performed By: #### L 100.0100 ####[facility] [address] [place], [address] Hematocrit (Bld) [Volume fraction] 46.8 % Normal 40-54 [facility] Comment on above: Order Comment: 109.1 Performed By: #### L 100.0100 ####[facility] [address] [place], [address] Hemoglobin (Bld) [Mass/Vol] 15.4 g/dL Normal 13.0-16.5 [facility] Comment on above: Order Comment: 109.1 Performed By: #### L 100.0100 ####[facility] [address] [place], [address] IG% 0.200 Normal 0.0-0.9 [facility] Comment on above: Order Comment: 109.1 Result Comment: IG% - Immature Granulocytes (promyelocytes, myelocytes andmetamyelocytes) > 1% indicates that a LEFT SHIFT is Present. Performed By: #### L 100.0100 ####[facility] [address] [place], [address] Lymphocytes/100 WBC (Bld) 27.7 % Normal 19-41 [facility] Comment on above: Order Comment: 109.1 Performed By: #### L 100.0100 ####[facility] [address] [place], [address] MCH (RBC) [Entitic mass] 30.1 pg Normal 27.0-32.0 [facility] Comment on above: Order Comment: 109.1 Performed By: #### L 100.0100 ####[facility] [address] [place], [address] MCHC (RBC) [Mass/Vol] 32.9 g/dL Normal 32-36 [facility] Comment on above: Order Comment: 109.1 Performed By: #### L 100.0100 ####[facility] [address] [place], [address] MCV (RBC) [Entitic vol] 91.4 fL Normal 80-94 [facility] Comment on above: Order Comment: 109.1 Performed By: #### L 100.0100 ####[facility] [address] [place], [address] Monocytes/100 WBC (Bld) 8.5 % Normal 0-10 [facility] Comment on above: Order Comment: 109.1 Performed By: #### L 100.0100 ####[facility] [address] [place], [address] Neutrophils/100 WBC (Bld) 62.1 % Normal 47-70 [facility] Comment on above: Order Comment: 109.1 Performed By: #### L 100.0100 ####[facility] [address] [place], [address] Nucleated RBC (Bld) [#/Vol] 0 10*3/uL Normal 0-5 [facility] Comment on above: Order Comment: 109.1 Performed By: #### L 100.0100 ####[facility] [address] [place], [address] Platelet mean volume (Bld) [Entitic vol] 10.6 fL Normal 6.2-12.0 [facility] Comment on above: Order Comment: 109.1 Performed By: #### L 100.0100 ####[facility] [address] [place], [address] Platelets (Bld) [#/Vol] 190 10*3/uL Normal 150-450 [facility] Comment on above: Order Comment: 109.1 Performed By: #### L 100.0100 ####[facility] [address] [place], [address] RBC (Bld) [#/Vol] 5.12 10*6/uL Normal 4.6-6.2 [facility] Comment on above: Order Comment: 109.1 Performed By: #### L 100.0100 ####[facility] [facility] [address] [place], [address] RDW SD 43.3 fl Normal 35.1-43.9 [facility] Comment on above: Order Comment: 109.1 Performed By: #### L 100.0100 ####[facility] [address] [place], [address] WBC (Bld) [#/Vol] 8.8 10*3/uL Normal 4.4-11.0 [facility] Comment on above: Order Comment: 109.1 Performed By: #### L 100.0100 ####[facility] [address] [place], [address] Eosinophil percentageOrdered By: Renard Burgos on 09-16-2024 Eosinophils/100 WBC (Bld) 0.7 % 0-5 [facility] Erythrocyte distribution wid th ratioOrdered By: Renard Burgos on 09-16-2024 Erythrocyte distribution width (RBC) [Ratio] 13.1 % 11.6-14.6 [facility] Erythrocyte distribution wid th standard deviationOrdered By: Renard Burgos on 09-16-2024 Erythrocyte distribution width (RBC) [Ratio] 43.3 fl 35.1-43.9 [facility] Hematocrit Auto (Bld) [Volum e fraction]Ordered By: Renard Burgos on 09-16-2024 Hematocrit (Bld) [Volume fraction] 46.8 % 40-54 [facility] Hemoglobin measurementOrdere d By: Renard Burgos on 09-16-2024 Hemoglobin (Bld) [Mass/Vol] 15.4 g/dL 13.0-16.5 [facility] Immature granulocytes/100 WB C Auto (Bld)Ordered By: Renard Burgos on 09-16-2024 Immature granulocytes/100 WBC (Bld) 0.200 % 0.0-0.9 [facility] Comment on above: IG% - Immature Granu locytes (promyelocytes, myelocytes and metamyelocytes) > 1% indicates that a LEFT SHIFT is Present. MCV (mean corpuscular volume ) determinationOrdered By: Renard Burgos on 09-16-2024 MCV (RBC) [Entitic vol] 91.4 fL 80-94 [facility] Mean corpuscular hemoglobin (MCH) determinationOrdered By: Renard Burgos on 09-16-2024 MCH (RBC) [Entitic mass] 30.1 pg 27.0-32.0 [facility] Mean corpuscular hemoglobin concentration (MCHC) determinationOrdered By: Renard Burgos on 09-16-2024 MCHC (RBC) [Mass/Vol] 32.9 g/dL 32-36 [facility] Mean platelet volume determi nationOrdered By: Renard Burgos on 09-16-2024 Platelet mean volume (Bld) [Entitic vol] 10.6 fL 6.2-12.0 [facility] Monocyte percentageOrdered B y: Renard Burgos on 09-16-2024 Monocytes/100 WBC (Bld) 8.5 % 0-10 [facility] Neutrophil percentageOrdered By: Renard Burgos on 09-16-2024 Neutrophils/100 WBC (Bld) 62.1 % 47-70 [facility] Nucleated red blood cell per centageOrdered By: Renard Burgos on 09-16-2024 Nucleated RBC/100 WBC (Bld) [Ratio] 0 % 0-5 [facility] Platelet countOrdered By: Garrick Bhatt on 09-16-2024 Platelets (Bld) [#/Vol] 190 10*3/uL 150-450 [facility] RBC Auto (Bld) [#/Vol]Ordere d By: Renard Burgos on 09-16-2024 RBC (Bld) [#/Vol] 5.12 10*6/uL 4.6-6.2 [facility] White blood cell (WBC) count Ordered By: Renard Burgos on 09-16-2024 WBC (Bld) [#/Vol] 8.8 10*3/uL 4.4-11.0 [facility] Anion gap in Serum or Plasma Ordered By: Renard Burgos on 09-11-2024 Anion gap [Moles/Vol] 11 mmol/L 5-15 [facility] Automated blood erythrocyte countOrdered By: Renard Burgos on 09-11-2024 RBC (Bld) [#/Vol] 4.67 10*6/uL Normal 4.6-6.2 [facility] Comment on above: Order Comment: 109-1 Performed By: #### L 100.0500, L500.2500 ####[facility] [address] [place], [address] Automated blood hematocrit ( percentage)Ordered By: Renard Burgos on 09-11-2024 Hematocrit (Bld) [Volume fraction] 42.7 % Normal 40-54 [facility] Comment on above: Order Comment: 109-1 Performed By: #### L 100.0500, L500.2500 ####[facility] [address] [place], [address] BUN/creatinine ratioOrdered By: Renard Burgos on 09-11-2024 Urea nitrogen/Creatinine [Mass ratio] 23.0 mg/mg High 10-20 [facility] Basic Metabolic Profile (BMP )on 09-11-2024 BUN/CRE 23.0 RATIO High 10-20 [facility] Comment on above: Order Comment: 109-1 Performed By: #### L 100.0500, L500.2500 ####[facility] [address] [place], [address] Calcium [Mass/Vol] 8.7 mg/dL Normal 7.6-11.0 [facility] Comment on above: Order Comment: 109-1 Performed By: #### L 100.0500, L500.2500 ####[facility] [address] [place], [address] Chloride [Moles/Vol] 104 mmol/L Normal 98-108 [facility] Comment on above: Order Comment: 109-1 Performed By: #### L 100.0500, L500.2500 ####[facility] [address] [place], [address] CO2 [Moles/Vol] 25.9 mmol/L Normal 21.0-32.0 [facility] Comment on above: Order Comment: 109-1 Performed By: #### L 100.0500, L500.2500 ####[facility] [address] [place], [address] Creatinine [Mass/Vol] 0.58 mg/dL Low 0.70-1.20 [facility] Comment on above: Order Comment: 109-1 Performed By: #### L 100.0500, L500.2500 ####[facility] [address] [place], [address] GAP 11 Normal 5-15 [facility] Comment on above: Order Comment: 109-1 Performed By: #### L 100.0500, L500.2500 ####[facility] [address] [place], [address] GFR/1.73 sq M.predicted among non-blacks MDRD (S/P/Bld) [Vol rate/Area] 107 mL/min/{1.73_m2} Normal >60 [facility] Comment on above: Order Comment: 109-1 Result Comment: mL/m in/1.73m2 CKD-EPI Creatinine Equation (2020) Performed By: #### L 100.0500, L500.2500 ####[facility] [address] [place], [address] Glucose [Mass/Vol] 113 mg/dL High 70-99 [facility] Comment on above: Order Comment: 109-1 Performed By: #### L 100.0500, L500.2500 ####[facility] [address] [place], [address] Potassium [Moles/Vol] 3.8 mmol/L Normal 3.3-5.1 [facility] Comment on above: Order Comment: 109-1 Performed By: #### L 100.0500, L500.2500 ####[facility] [address] [place], [address] Sodium [Moles/Vol] 141 mmol/L Normal 133-145 [facility] Comment on above: Order Comment: 109-1 Performed By: #### L 100.0500, L500.2500 ####[facility] [address] [place], [address] Urea nitrogen [Mass/Vol] 13 mg/dL Normal 4-19 [facility] Comment on above: Order Comment: 109-1 Performed By: #### L 100.0500, L500.2500 ####[facility] [address] [place], [address] CBC-Complete Blood Cnt No Di ffon 09-11-2024 RDW SD 43.7 fl Normal 35.1-43.9 [facility] Comment on above: Order Comment: 109-1 Performed By: #### L 100.0500, L500.2500 ####[facility] [address] [place], [address] Carbon dioxide, total [Moles /volume] in Central venous bloodOrdered By: Renard Burgos on 09-11-2024 CO2 [Moles/Vol] 25.9 mmol/L 21.0-32.0 [facility] Chloride assayOrdered By: Garrick Bhatt on 09-11-2024 Chloride [Moles/Vol] 104 mmol/L 98-108 [facility] Erythrocyte distribution wid th ratioOrdered By: Renard Burgos on 09-11-2024 Erythrocyte distribution width (RBC) [Ratio] 13.2 % Normal 11.6-14.6 [facility] Comment on above: Order Comment: 109-1 Performed By: #### L 100.0500, L500.2500 ####[facility] [address] [place], [address] Erythrocyte distribution wid th standard deviationOrdered By: Renard Burgos on 09-11-2024 Erythrocyte distribution width (RBC) [Ratio] 43.7 fl 35.1-43.9 [facility] Glomerular filtration rate ( GFR) estimation/1.73 sq m using serum, plasma, or whole bOrdered By: Renard Burgos on 09-11-2024 GFR/1.73 sq M.predicted among non-blacks MDRD (S/P/Bld) [Vol rate/Area] 107 mL/min/{1.73_m2} >60 [facility] Comment on above: mL/min/1.73m2 CKD-EP I Creatinine Equation (2020) Hemoglobin measurementOrdere d By: Renard Burgos on 09-11-2024 Hemoglobin (Bld) [Mass/Vol] 14.0 g/dL Normal 13.0-16.5 [facility] Comment on above: Order Comment: 109-1 Performed By: #### L 100.0500, L500.2500 ####[facility] [address] [facility] [place], [place], [id number] MCV (mean corpuscular volume ) determinationOrdered By: Renard Burgos on 09-11-2024 MCV (RBC) [Entitic vol] 91.4 fL Normal 80-94 [facility] Comment on above: Order Comment: 109-1 Performed By: #### L 100.0500, L500.2500 ####[facility] [address] [place], [address] Mean corpuscular hemoglobin (MCH) determinationOrdered By: Renard Burgos on 09-11-2024 MCH (RBC) [Entitic mass] 30.0 pg Normal 27.0-32.0 [facility] Comment on above: Order Comment: 109-1 Performed By: #### L 100.0500, L500.2500 ####[facility] [address] [place], [address] Mean corpuscular hemoglobin concentration (MCHC) determinationOrdered By: Renard Burgos on 09-11-2024 MCHC (RBC) [Mass/Vol] 32.8 g/dL Normal 32-36 [facility] Comment on above: Order Comment: 109-1 Performed By: #### L 100.0500, L500.2500 ####[facility] [address] [place], [address] Mean platelet volume determi nationOrdered By: Renard Burgos on 09-11-2024 Platelet mean volume (Bld) [Entitic vol] 11.3 fL Normal 6.2-12.0 [facility] Comment on above: Order Comment: 109-1 Performed By: #### L 100.0500, L500.2500 ####[facility] [address] [place], [address] Platelet countOrdered By: Garrick Bhatt on 09-11-2024 Platelets (Bld) [#/Vol] 191 10*3/uL Normal 150-450 [facility] Comment on above: Order Comment: 109-1 Performed By: #### L 100.0500, L500.2500 ####[facility] [address] [place], [address] Potassium measurement (mass/ volume)Ordered By: Renard Burgos on 09-11-2024 Potassium (Unsp spec) [Mass/Vol] 3.8 mmol/L 3.3-5.1 [facility] Serum creatinine measurement (mass/volume)Ordered By: Renard Burgos on 09-11-2024 Creatinine [Mass/Vol] 0.58 mg/dL Low 0.70-1.20 [facility] Serum glucose measurement (m ass/volume)Ordered By: Renard uBrgos on 09-11-2024 Glucose [Mass/Vol] 113 mg/dL High 70-99 [facility] Serum or plasma calcium gordy urement (mass/volume)Ordered By: Renard Burgos on 09-11-2024 Calcium [Mass/Vol] 8.7 mg/dL 7.6-11.0 [facility] Serum or plasma urea nitroge n measurement (mass/volume)Ordered By: Renard Burgos on 09-11-2024 Urea nitrogen [Mass/Vol] 13 mg/dL 4-19 [facility] Sodium levelOrdered By: Lamine Burgos on 09-11-2024 Sodium [Moles/Vol] 141 mmol/L 133-145 [facility] White blood cell (WBC) count Ordered By: Renard Burgos on 09-11-2024 WBC (Bld) [#/Vol] 7.6 10*3/uL Normal 4.4-11.0 [facility] Comment on above: Order Comment: 109-1 Performed By: #### L 100.0500, L500.2500 ####[facility] [address] [place], [address] Absolute lymphocyte countOrd ered By: Renard Burgos on 09-09-2024 Lymphocytes Auto (Unsp spec) [#/Vol] 2.24 10*3/uL 0.83-4.51 [facility] Absolute neutrophil countOrd ered By: Renard Burgos on 09-09-2024 Neutrophils (Bld) [#/Vol] 8.7 10*3/uL High 2.0-7.7 [facility] Automated lymphocyte count a s percentage of total leukocytesOrdered By: Renard Burgos on 09-09-2024 Lymphocytes/100 WBC Auto (Unsp spec) 19.1 % 19- [facility] Basophil percentageOrdered B y: Renard Burgos on 09-09-2024 Basophils/100 WBC (Bld) 0.4 % 0-1 [facility] CBC W/Diff, Automatedon 08-29 Absolute Lymph 2.24 X10 3/uL Normal 0.83-4.51 [facility] Comment on above: Order Comment: 109-1 Performed By: #### L 100.0100 ####[facility] [address] [place], [address] Absolute Neut 8.7 X10 3/uL High 2.0-7.7 [facility] Comment on above: Order Comment: 109-1 Performed By: #### L 100.0100 ####[facility] [address] [place], [address] Basophils/100 WBC (Bld) 0.4 % Normal 0-1 [facility] Comment on above: Order Comment: 109-1 Performed By: #### L 100.0100 ####[facility] [address] [place], [address] Eosinophils/100 WBC (Bld) 0.5 % Normal 0-5 [facility] Comment on above: Order Comment: 109-1 Performed By: #### L 100.0100 ####[facility] [address] [place], [address] Erythrocyte distribution width (RBC) [Ratio] 13.0 % Normal 11.6-14.6 [facility] Comment on above: Order Comment: 109-1 Performed By: #### L 100.0100 ####[facility] [address] [place], [address] Hematocrit (Bld) [Volume fraction] 44.7 % Normal 40-54 [facility] Comment on above: Order Comment: 109-1 Performed By: #### L 100.0100 ####[facility] [address] [place], [address] Hemoglobin (Bld) [Mass/Vol] 14.6 g/dL Normal 13.0-16.5 [facility] Comment on above: Order Comment: 109-1 Performed By: #### L 100.0100 ####[facility] [address] [place], [address] IG% 0.300 Normal 0.0-0.9 [facility] Comment on above: Order Comment: 109-1 Result Comment: IG% - Immature Granulocytes (promyelocytes, myelocytes andmetamyelocytes) > 1% indicates that a LEFT SHIFT is Present. Performed By: #### L 100.0100 ####[facility] [address] [place], [address] Lymphocytes/100 WBC (Bld) 19.1 % Normal 19-41 [facility] Comment on above: Order Comment: 109-1 Performed By: #### L 100.0100 ####[facility] [address] [place], [address] MCH (RBC) [Entitic mass] 30.1 pg Normal 27.0-32.0 [facility] Comment on above: Order Comment: 109-1 Performed By: #### L 100.0100 ####[facility] [address] [place], [address] MCHC (RBC) [Mass/Vol] 32.7 g/dL Normal 32-36 [facility] Comment on above: Order Comment: 109-1 Performed By: #### L 100.0100 ####[facility] [address] [place], [address] MCV (RBC) [Entitic vol] 92.2 fL Normal 80-94 [facility] Comment on above: Order Comment: 109-1 Performed By: #### L 100.0100 ####[facility] [address] [place], [address] Monocytes/100 WBC (Bld) 5.1 % Normal 0-10 [facility] Comment on above: Order Comment: 109-1 Performed By: #### L 100.0100 ####[facility] [address] [place], [address] Neutrophils/100 WBC (Bld) 74.6 % High 47-70 [facility] Comment on above: Order Comment: 109-1 Performed By: #### L 100.0100 ####[facility] [address] [place], [address] Nucleated RBC (Bld) [#/Vol] 0 10*3/uL Normal 0-5 [facility] Comment on above: Order Comment: 109-1 Performed By: #### L 100.0100 ####[facility] [address] [place], [address] Platelet mean volume (Bld) [Entitic vol] 11.6 fL Normal 6.2-12.0 [facility] Comment on above: Order Comment: 109-1 Performed By: #### L 100.0100 ####[facility] [address] [place], [address] Platelets (Bld) [#/Vol] 189 10*3/uL Normal 150-450 [facility] Comment on above: Order Comment: 109-1 Performed By: #### L 100.0100 ####[facility] [address] [place], [address] RBC (Bld) [#/Vol] 4.85 10*6/uL Normal 4.6-6.2 [facility] Comment on above: Order Comment: 109-1 Performed By: #### L 100.0100 ####[facility] [address] [place], [address] RDW SD 43.8 fl Normal 35.1-43.9 [facility] Comment on above: Order Comment: 109-1 Performed By: #### L 100.0100 ####[facility] [address] [place], [address] WBC (Bld) [#/Vol] 11.7 10*3/uL High 4.4-11.0 [facility] Comment on above: Order Comment: 109-1 Performed By: #### L 100.0100 ####[facility] [address] [place], [address] Eosinophil percentageOrdered By: Renard Burgos on 09-09-2024 Eosinophils/100 WBC (Bld) 0.5 % 0-5 [facility] Erythrocyte distribution wid th ratioOrdered By: Renard Burgos on 09-09-2024 Erythrocyte distribution width (RBC) [Ratio] 13.0 % 11.6-14.6 [facility] Erythrocyte distribution wid th standard deviationOrdered By: Renard Burgos on 09-09-2024 Erythrocyte distribution width (RBC) [Ratio] 43.8 fl 35.1-43.9 [facility] Hematocrit Auto (Bld) [Volum e fraction]Ordered By: Renard Burgos on 09-09-2024 Hematocrit (Bld) [Volume fraction] 44.7 % 40-54 [facility] Hemoglobin measurementOrdere d By: Renard Burgos on 09-09-2024 Hemoglobin (Bld) [Mass/Vol] 14.6 g/dL 13.0-16.5 [facility] Immature granulocytes/100 WB C Auto (Bld)Ordered By: Renard Burgos on 09-09-2024 Immature granulocytes/100 WBC (Bld) 0.300 % 0.0-0.9 [facility] Comment on above: IG% - Immature Granu locytes (promyelocytes, myelocytes and metamyelocytes) > 1% indicates that a LEFT SHIFT is Present. MCV (mean corpuscular volume ) determinationOrdered By: Renard Burgos on 09-09-2024 MCV (RBC) [Entitic vol] 92.2 fL 80-94 [facility] Mean corpuscular hemoglobin (MCH) determinationOrdered By: Renard Burgos on 09-09-2024 MCH (RBC) [Entitic mass] 30.1 pg 27.0-32.0 [facility] Mean corpuscular hemoglobin concentration (MCHC) determinationOrdered By: Renard Burgos on 09-09-2024 MCHC (RBC) [Mass/Vol] 32.7 g/dL 32-36 [facility] Mean platelet volume determi nationOrdered By: Renard Burgos on 09-09-2024 Platelet mean volume (Bld) [Entitic vol] 11.6 fL 6.2-12.0 [facility] Monocyte percentageOrdered B y: Renard Burgos on 09-09-2024 Monocytes/100 WBC (Bld) 5.1 % 0-10 [facility] Neutrophil percentageOrdered By: Renard Burgos on 09-09-2024 Neutrophils/100 WBC (Bld) 74.6 % High 47-70 [facility] Nucleated red blood cell per centageOrdered By: Renard Burgos on 09-09-2024 Nucleated RBC/100 WBC (Bld) [Ratio] 0 % 0-5 [facility] Platelet countOrdered By: Garrick Bhatt on 09-09-2024 Platelets (Bld) [#/Vol] 189 10*3/uL 150-450 [facility] RBC Auto (Bld) [#/Vol]Ordere d By: Renard Burgos on 09-09-2024 RBC (Bld) [#/Vol] 4.85 10*6/uL 4.6-6.2 [facility] White blood cell (WBC) count Ordered By: Renard Burgos on 09-09-2024 WBC (Bld) [#/Vol] 11.7 10*3/uL High 4.4-11.0 [facility] Absolute lymphocyte countOrd ered By: Renard Burgos on 09-02-2024 Lymphocytes Auto (Unsp spec) [#/Vol] 2.07 10*3/uL 0.83-4.51 [facility] Absolute neutrophil countOrd ered By: Renard Burgos on 09-02-2024 Neutrophils (Bld) [#/Vol] 5.8 10*3/uL 2.0-7.7 [facility] Automated lymphocyte count a s percentage of total leukocytesOrdered By: Renard Burgos on 09-02-2024 Lymphocytes/100 WBC Auto (Unsp spec) 24.4 % 19-41 [facility] Basophil percentageOrdered B y: Renard Burgos on 09-02-2024 Basophils/100 WBC (Bld) 0.6 % 0-1 [facility] CBC W/Diff, Automatedon Absolute Lymph 2.07 X10 3/uL Normal 0.83-4.51 [facility] Comment on above: Order Comment: 109 Performed By: #### L 100.0100 ####[facility] [address] [facility] [place], [place], [address] Absolute Neut 5.8 X10 3/uL Normal 2.0-7.7 [facility] Comment on above: Order Comment: 109 Performed By: #### L 100.0100 ####[facility] [address] [place], [address] Basophils/100 WBC (Bld) 0.6 % Normal 0-1 [facility] Comment on above: Order Comment: 109 Performed By: #### L 100.0100 ####[facility] [address] [place], [address] Eosinophils/100 WBC (Bld) 0.7 % Normal 0-5 [facility] Comment on above: Order Comment: 109 Performed By: #### L 100.0100 ####[facility] [address] [place], [address] Erythrocyte distribution width (RBC) [Ratio] 12.8 % Normal 11.6-14.6 [facility] Comment on above: Order Comment: 109 Performed By: #### L 100.0100 ####[facility] [address] [place], [address] Hematocrit (Bld) [Volume fraction] 44.5 % Normal 40-54 [facility] Comment on above: Order Comment: 109 Performed By: #### L 100.0100 ####[facility] [address] [place], [address] Hemoglobin (Bld) [Mass/Vol] 14.9 g/dL Normal 13.0-16.5 [facility] Comment on above: Order Comment: 109 Performed By: #### L 100.0100 ####[facility] [address] [place], [address] IG% 0.400 Normal 0.0-0.9 [facility] Comment on above: Order Comment: 109 Result Comment: IG% - Immature Granulocytes (promyelocytes, myelocytes andmetamyelocytes) > 1% indicates that a LEFT SHIFT is Present. Performed By: #### L 100.0100 ####[facility] [address] [place], [address] Lymphocytes/100 WBC (Bld) 24.4 % Normal 19-41 [facility] Comment on above: Order Comment: 109 Performed By: #### L 100.0100 ####[facility] [address] [place], [address] MCH (RBC) [Entitic mass] 29.9 pg Normal 27.0-32.0 [facility] Comment on above: Order Comment: 109 Performed By: #### L 100.0100 ####[facility] [address] [place], [address] MCHC (RBC) [Mass/Vol] 33.5 g/dL Normal 32-36 [facility] Comment on above: Order Comment: 109 Performed By: #### L 100.0100 ####[facility] [address] [place], [address] MCV (RBC) [Entitic vol] 89.4 fL Normal 80-94 [facility] Comment on above: Order Comment: 109 Performed By: #### L 100.0100 ####[facility] [address] [place], [address] Monocytes/100 WBC (Bld) 5.4 % Normal 0-10 [facility] Comment on above: Order Comment: 109 Performed By: #### L 100.0100 ####[facility] [address] [place], [address] Neutrophils/100 WBC (Bld) 68.5 % Normal 47-70 [facility] Comment on above: Order Comment: 109 Performed By: #### L 100.0100 ####[facility] [address] [place], [address] Nucleated RBC (Bld) [#/Vol] 0 10*3/uL Normal 0-5 [facility] Comment on above: Order Comment: 109 Performed By: #### L 100.0100 ####[facility] [address] [place], [address] Platelet mean volume (Bld) [Entitic vol] 10.7 fL Normal 6.2-12.0 [facility] Comment on above: Order Comment: 109 Performed By: #### L 100.0100 ####[facility] [address] [place], [address] Platelets (Bld) [#/Vol] 189 10*3/uL Normal 150-450 [facility] Comment on above: Order Comment: 109 Performed By: #### L 100.0100 ####[facility] [address] [place], [address] RBC (Bld) [#/Vol] 4.98 10*6/uL Normal 4.6-6.2 [facility] Comment on above: Order Comment: 109 Performed By: #### L 100.0100 ####[facility] [address] [place], [address] RDW SD 41.7 fl Normal 35.1-43.9 [facility] Comment on above: Order Comment: 109 Performed By: #### L 100.0100 ####[facility] [address] [place], [address] WBC (Bld) [#/Vol] 8.5 10*3/uL Normal 4.4-11.0 [facility] Comment on above: Order Comment: 109 Performed By: #### L 100.0100 ####[facility] [address] [place], [address] Eosinophil percentageOrdered By: Renard Burgos on 09-02-2024 Eosinophils/100 WBC (Bld) 0.7 % 0-5 [facility] Erythrocyte distribution wid th ratioOrdered By: Renard Burgos on 09-02-2024 Erythrocyte distribution width (RBC) [Ratio] 12.8 % 11.6-14.6 [facility] Erythrocyte distribution wid th standard deviationOrdered By: Renard Burgos on 09-02-2024 Erythrocyte distribution width (RBC) [Ratio] 41.7 fl 35.1-43.9 [facility] Hematocrit Auto (Bld) [Volum e fraction]Ordered By: Renard Burgos on 09-02-2024 Hematocrit (Bld) [Volume fraction] 44.5 % 40-54 [facility] Hemoglobin measurementOrdere d By: Renard Burgos on 09-02-2024 Hemoglobin (Bld) [Mass/Vol] 14.9 g/dL 13.0-16.5 [facility] Immature granulocytes/100 WB C Auto (Bld)Ordered By: Renard Burgos on 09-02-2024 Immature granulocytes/100 WBC (Bld) 0.400 % 0.0-0.9 [facility] Comment on above: IG% - Immature Granu locytes (promyelocytes, myelocytes and metamyelocytes) > 1% indicates that a LEFT SHIFT is Present. MCV (mean corpuscular volume ) determinationOrdered By: Renard Burgos on 09-02-2024 MCV (RBC) [Entitic vol] 89.4 fL 80-94 [facility] Mean corpuscular hemoglobin (MCH) determinationOrdered By: Renard Burgos on 09-02-2024 MCH (RBC) [Entitic mass] 29.9 pg 27.0-32.0 [facility] Mean corpuscular hemoglobin concentration (MCHC) determinationOrdered By: Renard Burgos on 09-02-2024 MCHC (RBC) [Mass/Vol] 33.5 g/dL 32-36 [facility] Mean platelet volume determi nationOrdered By: Renard Burgos on 09-02-2024 Platelet mean volume (Bld) [Entitic vol] 10.7 fL 6.2-12.0 [facility] Monocyte percentageOrdered B y: Renard Burgos on 09-02-2024 Monocytes/100 WBC (Bld) 5.4 % 0-10 [facility] Neutrophil percentageOrdered By: Renard Burgos on 09-02-2024 Neutrophils/100 WBC (Bld) 68.5 % 47-70 [facility] Nucleated red blood cell per centageOrdered By: Renard Burgos on 09-02-2024 Nucleated RBC/100 WBC (Bld) [Ratio] 0 % 0-5 [facility] Platelet countOrdered By: Garrick Bhatt on 09-02-2024 Platelets (Bld) [#/Vol] 189 10*3/uL 150-450 [facility] RBC Auto (Bld) [#/Vol]Ordere d By: Renard Burgos on 09-02-2024 RBC (Bld) [#/Vol] 4.98 10*6/uL 4.6-6.2 [facility] White blood cell (WBC) count Ordered By: Renard Burgos on 09-02-2024 WBC (Bld) [#/Vol] 8.5 10*3/uL 4.4-11.0 [facility] Absolute lymphocyte countOrd ered By: Renard Burgos on 08-26-2024 Lymphocytes Auto (Unsp spec) [#/Vol] 2.17 10*3/uL 0.83-4.51 [facility] Absolute neutrophil countOrd ered By: Renard Burgos on 08-26-2024 Neutrophils (Bld) [#/Vol] 5.7 10*3/uL 2.0-7.7 [facility] Automated lymphocyte count a s percentage of total leukocytesOrdered By: Renard Burgos on 08-26-2024 Lymphocytes/100 WBC Auto (Unsp spec) 25.1 % 19-41 [facility] Basophil percentageOrdered B y: Renard Burgos on 08-26-2024 Basophils/100 WBC (Bld) 0.6 % 0-1 [facility] CBC W/Diff, Automatedon 07-31 Absolute Lymph 2.17 X10 3/uL Normal 0.83-4.51 [facility] Comment on above: Order Comment: 109-1 Performed By: #### L 100.0100 ####[facility] [address] [place], [address] Absolute Neut 5.7 X10 3/uL Normal 2.0-7.7 [facility] Comment on above: Order Comment: 109-1 Performed By: #### L 100.0100 ####[facility] [address] [place], [address] Basophils/100 WBC (Bld) 0.6 % Normal 0-1 [facility] Comment on above: Order Comment: 109-1 Performed By: #### L 100.0100 ####[facility] [address] [place], [address] Eosinophils/100 WBC (Bld) 0.8 % Normal 0-5 [facility] Comment on above: Order Comment: 109-1 Performed By: #### L 100.0100 ####[facility] [address] [place], [address] Erythrocyte distribution width (RBC) [Ratio] 12.7 % Normal 11.6-14.6 [facility] Comment on above: Order Comment: 109-1 Performed By: #### L 100.0100 ####[facility] [address] [place], [address] Hematocrit (Bld) [Volume fraction] 41.8 % Normal 40-54 [facility] Comment on above: Order Comment: 109-1 Performed By: #### L 100.0100 ####[facility] [address] [place], [address] Hemoglobin (Bld) [Mass/Vol] 13.8 g/dL Normal 13.0-16.5 [facility] Comment on above: Order Comment: 109-1 Performed By: #### L 100.0100 ####[facility] [address] [place], [address] IG% 0.200 Normal 0.0-0.9 [facility] Comment on above: Order Comment: 109-1 Result Comment: IG% - Immature Granulocytes (promyelocytes, myelocytes andmetamyelocytes) > 1% indicates that a LEFT SHIFT is Present. Performed By: #### L 100.0100 ####[facility] [address] [place], [address] Lymphocytes/100 WBC (Bld) 25.1 % Normal 19-41 [facility] Comment on above: Order Comment: 109-1 Performed By: #### L 100.0100 ####[facility] [address] [place], [address] MCH (RBC) [Entitic mass] 29.7 pg Normal 27.0-32.0 [facility] Comment on above: Order Comment: 109-1 Performed By: #### L 100.0100 ####[facility] [address] [place], [address] MCHC (RBC) [Mass/Vol] 33.0 g/dL Normal 32-36 [facility] Comment on above: Order Comment: 109-1 Performed By: #### L 100.0100 ####[facility] [address] [place], [address] MCV (RBC) [Entitic vol] 90.1 fL Normal 80-94 [facility] Comment on above: Order Comment: 109-1 Performed By: #### L 100.0100 ####[facility] [address] [place], [address] Monocytes/100 WBC (Bld) 7.4 % Normal 0-10 [facility] Comment on above: Order Comment: 109-1 Performed By: #### L 100.0100 ####[facility] [address] [place], [address] Neutrophils/100 WBC (Bld) 65.9 % Normal 47-70 [facility] Comment on above: Order Comment: 109-1 Performed By: #### L 100.0100 ####[facility] [address] [place], [address] Nucleated RBC (Bld) [#/Vol] 0 10*3/uL Normal 0-5 [facility] Comment on above: Order Comment: 109-1 Performed By: #### L 100.0100 ####[facility] [address] [place], [address] Platelet mean volume (Bld) [Entitic vol] 11.3 fL Normal 6.2-12.0 [facility] Comment on above: Order Comment: 109-1 Performed By: #### L 100.0100 ####[facility] [address] [place], [address] Platelets (Bld) [#/Vol] 196 10*3/uL Normal 150-450 [facility] Comment on above: Order Comment: 109-1 Performed By: #### L 100.0100 ####[facility] [address] [place], [address] RBC (Bld) [#/Vol] 4.64 10*6/uL Normal 4.6-6.2 [facility] Comment on above: Order Comment: 109-1 Performed By: #### L 100.0100 ####[facility] [address] [place], [address] RDW SD 41.3 fl Normal 35.1-43.9 [facility] Comment on above: Order Comment: 109-1 Performed By: #### L 100.0100 ####[facility] [address] [place], [address] WBC (Bld) [#/Vol] 8.6 10*3/uL Normal 4.4-11.0 [facility] Comment on above: Order Comment: 109-1 Performed By: #### L 100.0100 ####[facility] [address] [place], [address] Eosinophil percentageOrdered By: Renard Burgos on 08-26-2024 Eosinophils/100 WBC (Bld) 0.8 % 0-5 [facility] Erythrocyte distribution wid th ratioOrdered By: Renard Burgos on 08-26-2024 Erythrocyte distribution width (RBC) [Ratio] 12.7 % 11.6-14.6 [facility] Erythrocyte distribution wid th standard deviationOrdered By: Renard Burgos on 08-26-2024 Erythrocyte distribution width (RBC) [Ratio] 41.3 fl 35.1-43.9 [facility] Hematocrit Auto (Bld) [Volum e fraction]Ordered By: Renard Burgos on 08-26-2024 Hematocrit (Bld) [Volume fraction] 41.8 % 40-54 [facility] Hemoglobin measurementOrdere d By: Renard Burgos on 08-26-2024 Hemoglobin (Bld) [Mass/Vol] 13.8 g/dL 13.0-16.5 [facility] Immature granulocytes/100 WB C Auto (Bld)Ordered By: Renard Burgos on 08-26-2024 Immature granulocytes/100 WBC (Bld) 0.200 % 0.0-0.9 [facility] Comment on above: IG% - Immature Granu locytes (promyelocytes, myelocytes and metamyelocytes) > 1% indicates that a LEFT SHIFT is Present. MCV (mean corpuscular volume ) determinationOrdered By: Renard Burgos on 08-26-2024 MCV (RBC) [Entitic vol] 90.1 fL 80-94 [facility] Mean corpuscular hemoglobin (MCH) determinationOrdered By: Renard Burgos on 08-26-2024 MCH (RBC) [Entitic mass] 29.7 pg 27.0-32.0 [facility] Mean corpuscular hemoglobin concentration (MCHC) determinationOrdered By: Renard Burgos on 08-26-2024 MCHC (RBC) [Mass/Vol] 33.0 g/dL 32-36 [facility] Mean platelet volume determi nationOrdered By: Renard Burgos on 08-26-2024 Platelet mean volume (Bld) [Entitic vol] 11.3 fL 6.2-12.0 [facility] Monocyte percentageOrdered B y: Renard Burgos on 08-26-2024 Monocytes/100 WBC (Bld) 7.4 % 0-10 [facility] Neutrophil percentageOrdered By: Renard Burgos on 08-26-2024 Neutrophils/100 WBC (Bld) 65.9 % 47-70 [facility] Nucleated red blood cell per centageOrdered By: Renard Burgos on 08-26-2024 Nucleated RBC/100 WBC (Bld) [Ratio] 0 % 0-5 [facility] Platelet countOrdered By: Garrick Bhatt on 08-26-2024 Platelets (Bld) [#/Vol] 196 10*3/uL 150-450 [facility] RBC Auto (Bld) [#/Vol]Ordere d By: Renard Burgos on 08-26-2024 RBC (Bld) [#/Vol] 4.64 10*6/uL 4.6-6.2 [facility] White blood cell (WBC) count Ordered By: Renard Burgos on 08-26-2024 WBC (Bld) [#/Vol] 8.6 10*3/uL 4.4-11.0 [facility] Anion gap in Serum or Plasma Ordered By: Renard Burgos on 08-23-2024 Anion gap [Moles/Vol] 10 mmol/L 5-15 [facility] BUN/creatinine ratioOrdered By: Renard Burgos on 08-23-2024 Urea nitrogen/Creatinine [Mass ratio] 21.4 mg/mg High 10-20 [facility] Bilirubin, totalOrdered By: Renard Burgos on 08-23-2024 Bilirubin [Mass/Vol] 0.35 mg/dL 0.00-1.30 [facility] CBC-Complete Blood Cnt No Di ffon 08-23-2024 Erythrocyte distribution width (RBC) [Ratio] 12.7 % Normal 11.6-14.6 [facility] Comment on above: Order Comment: 109.1 Performed By: #### L 500.4050, L500.4100, L100.0500 ####[facility] [address] [place], [address] Hematocrit (Bld) [Volume fraction] 42.2 % Normal 40-54 [facility] Comment on above: Order Comment: 109.1 Performed By: #### L 500.4050, L500.4100, L100.0500 ####[facility] [address] [place], [address] Hemoglobin (Bld) [Mass/Vol] 14.0 g/dL Normal 13.0-16.5 [facility] Comment on above: Order Comment: 109.1 Performed By: #### L 500.4050, L500.4100, L100.0500 ####[facility] [address] [place], [address] MCH (RBC) [Entitic mass] 30.0 pg Normal 27.0-32.0 [facility] Comment on above: Order Comment: 109.1 Performed By: #### L 500.4050, L500.4100, L100.0500 ####[facility] [address] [place], [address] MCHC (RBC) [Mass/Vol] 33.2 g/dL Normal 32-36 [facility] Comment on above: Order Comment: 109.1 Performed By: #### L 500.4050, L500.4100, L100.0500 ####[facility] [address] [place], [address] MCV (RBC) [Entitic vol] 90.6 fL Normal 80-94 [facility] Comment on above: Order Comment: 109.1 Performed By: #### L 500.4050, L500.4100, L100.0500 ####[facility] [address] [place], [address] Platelet mean volume (Bld) [Entitic vol] 11.3 fL Normal 6.2-12.0 [facility] Comment on above: Order Comment: 109.1 Performed By: #### L 500.4050, L500.4100, L100.0500 ####[facility] [address] [place], [address] Platelets (Bld) [#/Vol] 184 10*3/uL Normal 150-450 [facility] Comment on above: Order Comment: 109.1 Performed By: #### L 500.4050, L500.4100, L100.0500 ####[facility] [address] [place], [place], [address] RBC (Bld) [#/Vol] 4.66 10*6/uL Normal 4.6-6.2 [facility] Comment on above: Order Comment: 109.1 Performed By: #### L 500.4050, L500.4100, L100.0500 ####[facility] [address] [place], [place], [address] RDW SD 41.8 fl Normal 35.1-43.9 [facility] Comment on above: Order Comment: 109.1 Performed By: #### L 500.4050, L500.4100, L100.0500 ####[facility] [address] [place], [place], [address] WBC (Bld) [#/Vol] 8.6 10*3/uL Normal 4.4-11.0 [facility] Comment on above: Order Comment: 109.1 Performed By: #### L 500.4050, L500.4100, L100.0500 ####[facility] [address] [place], [place], [address] Calculated very low density lipoprotein (VLDL) cholesterol measurementOrdered By: Renard Burgos on 08-23-2024 Calculated very low density lipoprotein (VLDL) cholesterol measurement 40 mg/dL 5-40 [facility] Carbon dioxide, total [Moles /volume] in Central venous bloodOrdered By: Renard Burgos on 08-23-2024 CO2 [Moles/Vol] 24.9 mmol/L 21.0-32.0 [facility] Chloride assayOrdered By: Garrick Bhatt on 08-23-2024 Chloride [Moles/Vol] 106 mmol/L 98-108 [facility] Comprehensive Metabolic Prof ilon 08-23-2024 Albumin [Mass/Vol] 3.4 g/dL Normal 3.4-4.8 [facility] Comment on above: Order Comment: 109.1 Performed By: #### L 500.4050, L500.4100, L100.0500 ####[facility] [address] [place], [address] Albumin/Globulin [Mass ratio] 1.4 {ratio} Normal 0.9-2.4 [facility] Comment on above: Order Comment: 109.1 Performed By: #### L 500.4050, L500.4100, L100.0500 ####[facility] [address] [place], [address] ALK PHOS 101 U/L Normal 40-129 [facility] Comment on above: Order Comment: 109.1 Performed By: #### L 500.4050, L500.4100, L100.0500 ####[facility] [address] [place], [address] ALT [Catalytic activity/Vol] 13 U/L Normal <=46 [facility] Comment on above: Order Comment: 109.1 Performed By: #### L 500.4050, L500.4100, L100.0500 ####[facility] [address] [place], [address] AST [Catalytic activity/Vol] 17 U/L Normal <=37 [facility] Comment on above: Order Comment: 109.1 Performed By: #### L 500.4050, L500.4100, L100.0500 ####[facility] [address] [place], [address] Bilirubin [Mass/Vol] 0.35 mg/dL Normal 0.00-1.30 [facility] Comment on above: Order Comment: 109.1 Performed By: #### L 500.4050, L500.4100, L100.0500 ####[facility] [address] [place], [address] BUN/CRE 21.4 RATIO High 10-20 [facility] Comment on above: Order Comment: 109.1 Performed By: #### L 500.4050, L500.4100, L100.0500 ####[facility] [address] [place], [address] Calcium [Mass/Vol] 8.2 mg/dL Normal 7.6-11.0 [facility] Comment on above: Order Comment: 109.1 Performed By: #### L 500.4050, L500.4100, L100.0500 ####[facility] [address] [place], [address] Chloride [Moles/Vol] 106 mmol/L Normal 98-108 [facility] Comment on above: Order Comment: 109.1 Performed By: #### L 500.4050, L500.4100, L100.0500 ####[facility] [address] [place], [address] CO2 [Moles/Vol] 24.9 mmol/L Normal 21.0-32.0 [facility] Comment on above: Order Comment: 109.1 Performed By: #### L 500.4050, L500.4100, L100.0500 ####[facility] [address] [place], [address] Creatinine [Mass/Vol] 0.63 mg/dL Low 0.70-1.20 [facility] Comment on above: Order Comment: 109.1 Performed By: #### L 500.4050, L500.4100, L100.0500 ####[facility] [address] [place], [address] GAP 10 Normal 5-15 [facility] Comment on above: Order Comment: 109.1 Performed By: #### L 500.4050, L500.4100, L100.0500 ####[facility] [address] [place], [address] GFR/1.73 sq M.predicted among non-blacks MDRD (S/P/Bld) [Vol rate/Area] 104 mL/min/{1.73_m2} Normal >60 [facility] Comment on above: Order Comment: 109.1 Result Comment: mL/m in/1.73m2 CKD-EPI Creatinine Equation (2020) Performed By: #### L 500.4050, L500.4100, L100.0500 ####[facility] [address] [place], [address] Globulin (S) [Mass/Vol] 2.3 g/dL Normal 2.2-4.2 [facility] Comment on above: Order Comment: 109.1 Performed By: #### L 500.4050, L500.4100, L100.0500 ####[facility] [address] [place], [address] Glucose [Mass/Vol] 116 mg/dL High 70-99 [facility] Comment on above: Order Comment: 109.1 Performed By: #### L 500.4050, L500.4100, L100.0500 ####[facility] [address] [place], [address] Potassium [Moles/Vol] 3.8 mmol/L Normal 3.3-5.1 [facility] Comment on above: Order Comment: 109.1 Performed By: #### L 500.4050, L500.4100, L100.0500 ####[facility] [address] [place], [address] Sodium [Moles/Vol] 141 mmol/L Normal 133-145 [facility] Comment on above: Order Comment: 109.1 Performed By: #### L 500.4050, L500.4100, L100.0500 ####[facility] [address] [place], [address] T PROT 5.7 g/dL Low 5.9-8.4 [facility] Comment on above: Order Comment: 109.1 Performed By: #### L 500.4050, L500.4100, L100.0500 ####[facility] [address] [place], [address] Urea nitrogen [Mass/Vol] 14 mg/dL Normal 4-19 [facility] Comment on above: Order Comment: 109.1 Performed By: #### L 500.4050, L500.4100, L100.0500 ####[facility] [address] [place], [address] Erythrocyte distribution wid th ratioOrdered By: Renard Burgos on 08-23-2024 Erythrocyte distribution width (RBC) [Ratio] 12.7 % 11.6-14.6 [facility] Erythrocyte distribution wid th standard deviationOrdered By: Renard Burgos on 08-23-2024 Erythrocyte distribution width (RBC) [Ratio] 41.8 fl 35.1-43.9 [facility] Glomerular filtration rate ( GFR) estimation/1.73 sq m using serum, plasma, or whole bOrdered By: Renard Burgos on 08-23-2024 GFR/1.73 sq M.predicted among non-blacks MDRD (S/P/Bld) [Vol rate/Area] 104 mL/min/{1.73_m2} >60 [facility] Comment on above: mL/min/1.73m2 CKD-EP I Creatinine Equation (2020) Hematocrit Auto (Bld) [Volum e fraction]Ordered By: Renard Burgos on 08-23-2024 Hematocrit (Bld) [Volume fraction] 42.2 % 40-54 [facility] Hemoglobin measurementOrdere d By: Renard Burgos on 08-23-2024 Hemoglobin (Bld) [Mass/Vol] 14.0 g/dL 13.0-16.5 [facility] LDL calc ser/plasOrdered By: Renard Bugros on 08-23-2024 Cholesterol in LDL [Mass/Vol] 62 mg/dL [facility] Comment on above: Osngmliqwu=620-871 m g/dL & Higher Mfqo=797 mg/dL or greater Laboratory - Chemistry and C hemistry - challengeOrdered By: Renard Burgos on 08-23-2024 AST [Catalytic activity/Vol] 17 U/L <38 [facility] Lipid Profileon 08-23-2024 CHOL:HDL 5.32 Normal [facility] Comment on above: Order Comment: 109.1 Performed By: #### L 500.4050, L500.4100, L100.0500 ####[facility] [address] [place], [address] Cholesterol [Mass/Vol] 125 mg/dL Normal <=200 [facility] Comment on above: Order Comment: 109.1 Result Comment: Chol esterol level, Desirable <200 mg/dLBorderline high cholesterol 200-239 mg/dLHigh cholesterol >=240 mg/dLRecommendations of the NCEP Adult Treatment Panel for thefollowing risk-cutoff thresholds for the [place] American[place]. Performed By: #### L 500.4050, L500.4100, L100.0500 ####[facility] [address] [place], [address] Cholesterol in HDL [Mass/Vol] 24 mg/dL Low [facility] Comment on above: Order Comment: 109.1 Result Comment: Lucy onal Cholesterol Education Program (NCEP) guidelines:<40 mg/dL: Low HDL-cholesterol (major risk factor for CHD)>= 60 mg/dL: High HDL-cholesterol (negative risk factor forCHD)HDL-cholesterol is affected by a number of factors, e.g.smoking, exercise, hormones, sex and age. Performed By: #### L 500.4050, L500.4100, L100.0500 ####[facility] [address] [place], [address] Cholesterol in LDL [Mass/Vol] 62 mg/dL Normal [facility] Comment on above: Order Comment: 109.1 Result Comment: Bord mkbyvz=973-210 mg/dL Higher Itvf=344 mg/dL or greater Performed By: #### L 500.4050, L500.4100, L100.0500 ####[facility] [address] [place], [address] Cholesterol in VLDL [Mass/Vol] 40 mg/dL Normal 5-40 [facility] Comment on above: Order Comment: 109.1 Performed By: #### L 500.4050, L500.4100, L100.0500 ####[facility] [address], [address] Triglyceride [Mass/Vol] 198 mg/dL Normal [facility] Comment on above: Order Comment: 109.1 Result Comment: The drugs N-Acetylcysteine and Metamizole may falselydepress this assay.Normal range: <150 mg/dLBorderline High: 150-199 mg/dLHigh: 200-499 mg/dLVery High: >500 mg/dL Performed By: #### L 500.4050, L500.4100, L100.0500 ####[facility] [address] [place], [place], [id number] MCV (mean corpuscular volume ) determinationOrdered By: Renard Burgos on 08-23-2024 MCV (RBC) [Entitic vol] 90.6 fL 80-94 [facility] Mean corpuscular hemoglobin (MCH) determinationOrdered By: Renard Burgos on 08-23-2024 MCH (RBC) [Entitic mass] 30.0 pg 27.0-32.0 [facility] Mean corpuscular hemoglobin concentration (MCHC) determinationOrdered By: Renard Burgos on 08-23-2024 MCHC (RBC) [Mass/Vol] 33.2 g/dL 32-36 [facility] Mean platelet volume determi nationOrdered By: Renard Burgos on 08-23-2024 Platelet mean volume (Bld) [Entitic vol] 11.3 fL 6.2-12.0 [facility] Platelet countOrdered By: Garrick Bhatt on 08-23-2024 Platelets (Bld) [#/Vol] 184 10*3/uL 150-450 [facility] Potassium measurement (mass/ volume)Ordered By: Renard Burgos on 08-23-2024 Potassium (Unsp spec) [Mass/Vol] 3.8 mmol/L 3.3-5.1 [facility] RBC Auto (Bld) [#/Vol]Ordere d By: Renard Burgos on 08-23-2024 RBC (Bld) [#/Vol] 4.66 10*6/uL 4.6-6.2 [facility] Screening total cholesterol/ high density lipoprotein (HDL) cholesterol ratioOrdered By: Renard Burgos on 08-23-2024 Cholesterol.total/Cecilia sterol in HDL [Mass ratio] 5.32 {ratio} [facility] Serum creatinine measurement (mass/volume)Ordered By: Renard Burgos on 08-23-2024 Creatinine [Mass/Vol] 0.63 mg/dL Low 0.70-1.20 [facility] Serum globulin measurementOr dered By: Renard Burgos on 08-23-2024 Globulin (S) [Mass/Vol] 2.3 g/dL 2.2-4.2 [facility] Serum glucose measurement (m ass/volume)Ordered By: Renard Burgos on 08-23-2024 Glucose [Mass/Vol] 116 mg/dL High 70-99 [facility] Serum or plasma alanine kay otransferase (ALT) measurementOrdered By: Renard Burgos on 08-23-2024 ALT [Catalytic activity/Vol] 13 U/L <47 [facility] Serum or plasma albumin gordy urement (mass/volume)Ordered By: Renard Burgos on 08-23-2024 Albumin [Mass/Vol] 3.4 g/dL 3.4-4.8 [facility] Serum or plasma albumin/glob ulin mass ratioOrdered By: Renard Burgos on 08-23-2024 Albumin/Globulin [Mass ratio] 1.4 {ratio} 0.9-2.4 [facility] Serum or plasma alkaline trace sphatase measurementOrdered By: Renard Burgos on 08-23-2024 ALP [Catalytic activity/Vol] 101 U/L 40-129 [facility] Serum or plasma calcium gordy urement (mass/volume)Ordered By: Renard Burgos on 08-23-2024 Calcium [Mass/Vol] 8.2 mg/dL 7.6-11.0 [facility] Serum or plasma cholesterol in HDL measurement (mass/volume)Ordered By: Renard Burgos on 08-23-2024 Cholesterol in HDL [Mass/Vol] 24 mg/dL Low >40 [facility] Comment on above: National Cholesterol Education Program (NCEP) guidelines:<40 mg/dL: Low HDL-cholesterol (major risk factor for CHD)>= 60 mg/dL: High HDL-cholesterol (negative risk factor for CHD)HDL-cholesterol is affected by a number of factors, e.g. smoking, exercise, hormones, sex and age. Serum or plasma cholesterol measurement (mass/volume)Ordered By: Renard Burgos on 08-23-2024 Cholesterol [Mass/Vol] 125 mg/dL <201 [facility] Comment on above: Cholesterol level, D esirable <200 mg/dLBorderline high cholesterol 200-239 mg/dLHigh cholesterol >=240 mg/dLRecommendations of the NCEP Adult Treatment Panel for the following risk-cutoff thresholds for the [place] population. Serum or plasma urea nitroge n measurement (mass/volume)Ordered By: Renard Burgos on 08-23-2024 Urea nitrogen [Mass/Vol] 14 mg/dL 4-19 [facility] Sodium levelOrdered By: Lamine Burgos on 08-23-2024 Sodium [Moles/Vol] 141 mmol/L 133-145 [facility] Total proteinOrdered By: Lyubov Burgos on 08-23-2024 Protein [Mass/Vol] 5.7 g/dL Low 5.9-8.4 [facility] Triglycerides measurementOrd ered By: Renard Burgos on 08-23-2024 Triglyceride [Mass/Vol] 198 mg/dL <199 [facility] Comment on above: The drugs N-Acetylcy steine and Metamizole may falsely depress this assay. Normal range: <150 mg/dLBorderline High: 150-199 mg/dLHigh: 200-499 mg/dLVery High: >500 mg/dL White blood cell (WBC) count Ordered By: Renard Burgos on 08-23-2024 WBC (Bld) [#/Vol] 8.6 10*3/uL 4.4-11.0 [facility] Absolute lymphocyte countOrd ered By: Renard Burgos on 08-19-2024 Lymphocytes Auto (Unsp spec) [#/Vol] 1.97 10*3/uL 0.83-4.51 [facility] Absolute neutrophil countOrd ered By: Renard Hensleydiego on 08-19-2024 Neutrophils (Bld) [#/Vol] 5.0 10*3/uL 2.0-7.7 [facility] Automated lymphocyte count a s percentage of total leukocytesOrdered By: Renard Burgos on 08-19-2024 Lymphocytes/100 WBC Auto (Unsp spec) 25.4 % 19-41 [facility] Basophil percentageOrdered B y: Renard Burgos on 08-19-2024 Basophils/100 WBC (Bld) 0.5 % 0-1 [facility] CBC W/Diff, Automatedon 07-31-2024 Absolute Lymph 1.97 X10 3/uL Normal 0.83-4.51 [facility] Comment on above: Order Comment: 109 Performed By: #### L 100.0100 ####[facility] [address] [place], [address] Absolute Neut 5.0 X10 3/uL Normal 2.0-7.7 [facility] Comment on above: Order Comment: 109 Performed By: #### L 100.0100 ####[facility] [address] [place], [address] Basophils/100 WBC (Bld) 0.5 % Normal 0-1 [facility] Comment on above: Order Comment: 109 Performed By: #### L 100.0100 ####[facility] [address] [place], [address] Eosinophils/100 WBC (Bld) 1.0 % Normal 0-5 [facility] Comment on above: Order Comment: 109 Performed By: #### L 100.0100 ####[facility] [address] [place], [address] Erythrocyte distribution width (RBC) [Ratio] 12.7 % Normal 11.6-14.6 [facility] Comment on above: Order Comment: 109 Performed By: #### L 100.0100 ####[facility] [address] [place], [address] Hematocrit (Bld) [Volume fraction] 41.0 % Normal 40-54 [facility] Comment on above: Order Comment: 109 Performed By: #### L 100.0100 ####[facility] [address] [place], [address] Hemoglobin (Bld) [Mass/Vol] 13.6 g/dL Normal 13.0-16.5 [facility] Comment on above: Order Comment: 109 Performed By: #### L 100.0100 ####[facility] [address] [place], [address] IG% 0.400 Normal 0.0-0.9 [facility] Comment on above: Order Comment: 109 Result Comment: IG% - Immature Granulocytes (promyelocytes, myelocytes andmetamyelocytes) > 1% indicates that a LEFT SHIFT is Present. Performed By: #### L 100.0100 ####[facility] [address] [place], [address] Lymphocytes/100 WBC (Bld) 25.4 % Normal 19-41 [facility] Comment on above: Order Comment: 109 Performed By: #### L 100.0100 ####[facility] [address] [place], [address] MCH (RBC) [Entitic mass] 30.2 pg Normal 27.0-32.0 [facility] Comment on above: Order Comment: 109 Performed By: #### L 100.0100 ####[facility] [address] [place], [address] MCHC (RBC) [Mass/Vol] 33.2 g/dL Normal 32-36 [facility] Comment on above: Order Comment: 109 Performed By: #### L 100.0100 ####[facility] [address] [place], [address] MCV (RBC) [Entitic vol] 91.1 fL Normal 80-94 [facility] Comment on above: Order Comment: 109 Performed By: #### L 100.0100 ####[facility] [address] [place], [address] Monocytes/100 WBC (Bld) 8.2 % Normal 0-10 [facility] Comment on above: Order Comment: 109 Performed By: #### L 100.0100 ####[facility] [address] [place], [address] Neutrophils/100 WBC (Bld) 64.5 % Normal 47-70 [facility] Comment on above: Order Comment: 109 Performed By: #### L 100.0100 ####[facility] [address] [place], [address] Nucleated RBC (Bld) [#/Vol] 0 10*3/uL Normal 0-5 [facility] Comment on above: Order Comment: 109 Performed By: #### L 100.0100 ####[facility] [address] [place], [address] Platelet mean volume (Bld) [Entitic vol] 11.1 fL Normal 6.2-12.0 [facility] Comment on above: Order Comment: 109 Performed By: #### L 100.0100 ####[facility] [address] [place], [address] Platelets (Bld) [#/Vol] 207 10*3/uL Normal 150-450 [facility] Comment on above: Order Comment: 109 Performed By: #### L 100.0100 ####[facility] [address] [place], [address] RBC (Bld) [#/Vol] 4.50 10*6/uL Low 4.6-6.2 [facility] Comment on above: Order Comment: 109 Performed By: #### L 100.0100 ####[facility] [address] [place], [address] RDW SD 42.0 fl Normal 35.1-43.9 [facility] Comment on above: Order Comment: 109 Performed By: #### L 100.0100 ####[facility] [address] [place], [address] WBC (Bld) [#/Vol] 7.8 10*3/uL Normal 4.4-11.0 [facility] Comment on above: Order Comment: 109 Performed By: #### L 100.0100 ####[facility] [address] [place], [address] Eosinophil percentageOrdered By: Renard Burgos on 08-19-2024 Eosinophils/100 WBC (Bld) 1.0 % 0-5 [facility] Erythrocyte distribution wid th ratioOrdered By: Renard Burgos on 08-19-2024 Erythrocyte distribution width (RBC) [Ratio] 12.7 % 11.6-14.6 [facility] Erythrocyte distribution wid th standard deviationOrdered By: Renard Burgos on 08-19-2024 Erythrocyte distribution width (RBC) [Ratio] 42.0 fl 35.1-43.9 [facility] Hematocrit Auto (Bld) [Volum e fraction]Ordered By: Renard Burgos on 08-19-2024 Hematocrit (Bld) [Volume fraction] 41.0 % 40-54 [facility] Hemoglobin measurementOrdere d By: Renard Burgos on 08-19-2024 Hemoglobin (Bld) [Mass/Vol] 13.6 g/dL 13.0-16.5 [facility] Immature granulocytes/100 WB C Auto (Bld)Ordered By: Renard Burgos on 08-19-2024 Immature granulocytes/100 WBC (Bld) 0.400 % 0.0-0.9 [facility] Comment on above: IG% - Immature Granu locytes (promyelocytes, myelocytes and metamyelocytes) > 1% indicates that a LEFT SHIFT is Present. MCV (mean corpuscular volume ) determinationOrdered By: Renard Burgos on 08-19-2024 MCV (RBC) [Entitic vol] 91.1 fL 80-94 [facility] Mean corpuscular hemoglobin (MCH) determinationOrdered By: Renard Burgos on 08-19-2024 MCH (RBC) [Entitic mass] 30.2 pg 27.0-32.0 [facility] Mean corpuscular hemoglobin concentration (MCHC) determinationOrdered By: Renard Burgos on 08-19-2024 MCHC (RBC) [Mass/Vol] 33.2 g/dL 32-36 [facility] Mean platelet volume determi nationOrdered By: Renard Burgos on 08-19-2024 Platelet mean volume (Bld) [Entitic vol] 11.1 fL 6.2-12.0 [facility] Monocyte percentageOrdered B y: Renard Burgos on 08-19-2024 Monocytes/100 WBC (Bld) 8.2 % 0-10 [facility] Neutrophil percentageOrdered By: Renard Burgos on 08-19-2024 Neutrophils/100 WBC (Bld) 64.5 % 47-70 [facility] Nucleated red blood cell per centageOrdered By: Renard Burgos on 08-19-2024 Nucleated RBC/100 WBC (Bld) [Ratio] 0 % 0-5 [facility] Platelet countOrdered By: Garrick Bhatt on 08-19-2024 Platelets (Bld) [#/Vol] 207 10*3/uL 150-450 [facility] RBC Auto (Bld) [#/Vol]Ordere d By: Renard Burgos on 08-19-2024 RBC (Bld) [#/Vol] 4.50 10*6/uL Low 4.6-6.2 [facility] White blood cell (WBC) count Ordered By: Renard Burgos on 08-19-2024 WBC (Bld) [#/Vol] 7.8 10*3/uL 4.4-11.0 [facility] Absolute lymphocyte countOrd ered By: Renard Burgos on 08-12-2024 Lymphocytes Auto (Unsp spec) [#/Vol] 2.09 10*3/uL 0.83-4.51 [facility] Absolute neutrophil countOrd ered By: Renard Burgos on 08-12-2024 Neutrophils (Bld) [#/Vol] 5.0 10*3/uL 2.0-7.7 [facility] Automated lymphocyte count a s percentage of total leukocytesOrdered By: Renard Burgos on 08-12-2024 Lymphocytes/100 WBC Auto (Unsp spec) 27.0 % 19-41 [facility] Basophil percentageOrdered B y: Renard Burgos on 08-12-2024 Basophils/100 WBC (Bld) 0.5 % 0-1 [facility] CBC W/Diff, Automatedon 07-30-2024 Absolute Lymph 2.09 X10 3/uL Normal 0.83-4.51 [facility] Comment on above: Order Comment: 109.1 Performed By: #### L 100.0100 ####[facility] [address] [place], [address] Absolute Neut 5.0 X10 3/uL Normal 2.0-7.7 [facility] Comment on above: Order Comment: 109.1 Performed By: #### L 100.0100 ####[facility] [address] [place], [address] Basophils/100 WBC (Bld) 0.5 % Normal 0-1 [facility] Comment on above: Order Comment: 109.1 Performed By: #### L 100.0100 ####[facility] [address] [place], [address] Eosinophils/100 WBC (Bld) 0.9 % Normal 0-5 [facility] Comment on above: Order Comment: 109.1 Performed By: #### L 100.0100 ####[facility] [address] [place], [address] Erythrocyte distribution width (RBC) [Ratio] 12.7 % Normal 11.6-14.6 [facility] Comment on above: Order Comment: 109.1 Performed By: #### L 100.0100 ####[facility] [address] [place], [address] Hematocrit (Bld) [Volume fraction] 41.9 % Normal 40-54 [facility] Comment on above: Order Comment: 109.1 Performed By: #### L 100.0100 ####[facility] [address] [place], [address] Hemoglobin (Bld) [Mass/Vol] 14.1 g/dL Normal 13.0-16.5 [facility] Comment on above: Order Comment: 109.1 Performed By: #### L 100.0100 ####[facility] [address] [place], [address] IG% 0.300 Normal 0.0-0.9 [facility] Comment on above: Order Comment: 109.1 Result Comment: IG% - Immature Granulocytes (promyelocytes, myelocytes andmetamyelocytes) > 1% indicates that a LEFT SHIFT is Present. Performed By: #### L 100.0100 ####[facility] [address] [place], [address] Lymphocytes/100 WBC (Bld) 27.0 % Normal 19-41 [facility] Comment on above: Order Comment: 109.1 Performed By: #### L 100.0100 ####[facility] [address] [place], [address] MCH (RBC) [Entitic mass] 30.3 pg Normal 27.0-32.0 [facility] Comment on above: Order Comment: 109.1 Performed By: #### L 100.0100 ####[facility] [address] [place], [address] MCHC (RBC) [Mass/Vol] 33.7 g/dL Normal 32-36 [facility] Comment on above: Order Comment: 109.1 Performed By: #### L 100.0100 ####[facility] [address] [place], [address] MCV (RBC) [Entitic vol] 90.1 fL Normal 80-94 [facility] Comment on above: Order Comment: 109.1 Performed By: #### L 100.0100 ####[facility] [address] [place], [address] Monocytes/100 WBC (Bld) 7.1 % Normal 0-10 [facility] Comment on above: Order Comment: 109.1 Performed By: #### L 100.0100 ####[facility] [address] [place], [address] Neutrophils/100 WBC (Bld) 64.2 % Normal 47-70 [facility] Comment on above: Order Comment: 109.1 Performed By: #### L 100.0100 ####[facility] [address] [place], [address] Nucleated RBC (Bld) [#/Vol] 0 10*3/uL Normal 0-5 [facility] Comment on above: Order Comment: 109.1 Performed By: #### L 100.0100 ####[facility] [address] [place], [address] Platelet mean volume (Bld) [Entitic vol] 11.2 fL Normal 6.2-12.0 [facility] Comment on above: Order Comment: 109.1 Performed By: #### L 100.0100 ####[facility] [address] [place], [address] Platelets (Bld) [#/Vol] 188 10*3/uL Normal 150-450 [facility] Comment on above: Order Comment: 109.1 Performed By: #### L 100.0100 ####[facility] [address] [place], [address] RBC (Bld) [#/Vol] 4.65 10*6/uL Normal 4.6-6.2 [facility] Comment on above: Order Comment: 109.1 Performed By: #### L 100.0100 ####[facility] [address] [place], [address] RDW SD 41.6 fl Normal 35.1-43.9 [facility] Comment on above: Order Comment: 109.1 Performed By: #### L 100.0100 ####[facility] [address] [place], [address] WBC (Bld) [#/Vol] 7.8 10*3/uL Normal 4.4-11.0 [facility] Comment on above: Order Comment: 109.1 Performed By: #### L 100.0100 ####[facility] [address] [place], [address] Eosinophil percentageOrdered By: Renard Burgos on 08-12-2024 Eosinophils/100 WBC (Bld) 0.9 % 0-5 [facility] Erythrocyte distribution wid th (RBC) [Ratio]Ordered By: Renard Burgos on 08-12-2024 Erythrocyte distribution width (RBC) [Entitic vol] 41.6 fL 35.1-43.9 [facility] Erythrocyte distribution wid th ratioOrdered By: Renard Burgos on 08-12-2024 Erythrocyte distribution width (RBC) [Ratio] 12.7 % 11.6-14.6 [facility] Erythrocyte distribution wid th standard deviationOrdered By: Renard Burgos on 08-12-2024 Erythrocyte distribution width (RBC) [Ratio] 41.6 fl 35.1-43.9 [facility] Hematocrit Auto (Bld) [Volum e fraction]Ordered By: Renard Burgos on 08-12-2024 Hematocrit (Bld) [Volume fraction] 41.9 % 40-54 [facility] Hemoglobin measurementOrdere d By: Renard Burgos on 08-12-2024 Hemoglobin (Bld) [Mass/Vol] 14.1 g/dL 13.0-16.5 [facility] Immature granulocytes/100 WB C Auto (Bld)Ordered By: Renard Burgos on 08-12-2024 Immature granulocytes/100 WBC (Bld) 0.300 % 0.0-0.9 [facility] Comment on above: IG% - Immature Granu locytes (promyelocytes, myelocytes and metamyelocytes) > 1% indicates that a LEFT SHIFT is Present. Lymphocytes Auto (Unsp spec) [#/Vol]Ordered By: Renard Burgos on 08-12-2024 Lymphocytes (Bld) [#/Vol] 2.09 10*3/uL 0.83-4.51 [facility] Lymphocytes/100 WBC Auto (Un sp spec)Ordered By: Renard Burgos on 08-12-2024 Lymphocytes/100 WBC (Bld) 27.0 % 19-41 [facility] MCV (mean corpuscular volume ) determinationOrdered By: Renard Burgos on 08-12-2024 MCV (RBC) [Entitic vol] 90.1 fL 80-94 [facility] Mean corpuscular hemoglobin (MCH) determinationOrdered By: Renard Burgos on 08-12-2024 MCH (RBC) [Entitic mass] 30.3 pg 27.0-32.0 [facility] Mean corpuscular hemoglobin concentration (MCHC) determinationOrdered By: Renard Burgos on 08-12-2024 MCHC (RBC) [Mass/Vol] 33.7 g/dL 32-36 [facility] Mean platelet volume determi nationOrdered By: Renard Burgos on 08-12-2024 Platelet mean volume (Bld) [Entitic vol] 11.2 fL 6.2-12.0 [facility] Monocyte percentageOrdered B y: Renard Burgos on 08-12-2024 Monocytes/100 WBC (Bld) 7.1 % 0-10 [facility] Neutrophil percentageOrdered By: Renard Burgos on 08-12-2024 Neutrophils/100 WBC (Bld) 64.2 % 47-70 [facility] Nucleated red blood cell per centageOrdered By: Renard Burgos on 08-12-2024 Nucleated RBC/100 WBC (Bld) [Ratio] 0 % 0-5 [facility] Platelet countOrdered By: Garrick Bhatt on 08-12-2024 Platelets (Bld) [#/Vol] 188 10*3/uL 150-450 [facility] RBC Auto (Bld) [#/Vol]Ordere d By: Renard Burgos on 08-12-2024 RBC (Bld) [#/Vol] 4.65 10*6/uL 4.6-6.2 [facility] White blood cell (WBC) count Ordered By: Renard Burgos on 08-12-2024 WBC (Bld) [#/Vol] 7.8 10*3/uL 4.4-11.0 [facility] Absolute lymphocyte countOrd ered By: Renard Burgos on 08-05-2024 Lymphocytes Auto (Unsp spec) [#/Vol] 2.31 10*3/uL 0.83-4.51 [facility] Absolute neutrophil countOrd ered By: Renard Burgos on 08-05-2024 Neutrophils (Bld) [#/Vol] 5.4 10*3/uL 2.0-7.7 [facility] Automated lymphocyte count a s percentage of total leukocytesOrdered By: Renard Burgos on 08-05-2024 Lymphocytes/100 WBC Auto (Unsp spec) 26.9 % 19-41 [facility] Basophil percentageOrdered B y: Renard Burgos on 08-05-2024 Basophils/100 WBC (Bld) 0.6 % 0-1 [facility] CBC W/Diff, Automatedon - Absolute Lymph 2.31 X10 3/uL Normal 0.83-4.51 [facility] Comment on above: Order Comment: 109.1 Performed By: #### L 100.0100 ####[facility] [address] [place], [address] Absolute Neut 5.4 X10 3/uL Normal 2.0-7.7 [facility] Comment on above: Order Comment: 109.1 Performed By: #### L 100.0100 ####[facility] [address] [place], [address] Basophils/100 WBC (Bld) 0.6 % Normal 0-1 [facility] Comment on above: Order Comment: 109.1 Performed By: #### L 100.0100 ####[facility] [address] [place], [address] Eosinophils/100 WBC (Bld) 0.8 % Normal 0-5 [facility] Comment on above: Order Comment: 109.1 Performed By: #### L 100.0100 ####[facility] [address] [place], [address] Erythrocyte distribution width (RBC) [Ratio] 12.7 % Normal 11.6-14.6 [facility] Comment on above: Order Comment: 109.1 Performed By: #### L 100.0100 ####[facility] [address] [place], [address] Hematocrit (Bld) [Volume fraction] 41.6 % Normal 40-54 [facility] Comment on above: Order Comment: 109.1 Performed By: #### L 100.0100 ####[facility] [address], [address] Hemoglobin (Bld) [Mass/Vol] 13.7 g/dL Normal 13.0-16.5 [facility] Comment on above: Order Comment: 109.1 Performed By: #### L 100.0100 ####[facility] [address] [place], [address] IG% 0.300 Normal 0.0-0.9 [facility] Comment on above: Order Comment: 109.1 Result Comment: IG% - Immature Granulocytes (promyelocytes, myelocytes andmetamyelocytes) > 1% indicates that a LEFT SHIFT is Present. Performed By: #### L 100.0100 ####[facility] [address] [place], [address] Lymphocytes/100 WBC (Bld) 26.9 % Normal 19-41 [facility] Comment on above: Order Comment: 109.1 Performed By: #### L 100.0100 ####[facility] [address] [place], [address] MCH (RBC) [Entitic mass] 30.1 pg Normal 27.0-32.0 [facility] Comment on above: Order Comment: 109.1 Performed By: #### L 100.0100 ####[facility] [address] [place], [address] MCHC (RBC) [Mass/Vol] 32.9 g/dL Normal 32-36 [facility] Comment on above: Order Comment: 109.1 Performed By: #### L 100.0100 ####[facility] [address] [place], [address] MCV (RBC) [Entitic vol] 91.4 fL Normal 80-94 [facility] Comment on above: Order Comment: 109.1 Performed By: #### L 100.0100 ####[facility] [address] [place], [address] Monocytes/100 WBC (Bld) 8.3 % Normal 0-10 [facility] Comment on above: Order Comment: 109.1 Performed By: #### L 100.0100 ####[facility] [address] [place], [address] Neutrophils/100 WBC (Bld) 63.1 % Normal 47-70 [facility] Comment on above: Order Comment: 109.1 Performed By: #### L 100.0100 ####[facility] [address] [place], [address] Nucleated RBC (Bld) [#/Vol] 0 10*3/uL Normal 0-5 [facility] Comment on above: Order Comment: 109.1 Performed By: #### L 100.0100 ####[facility] [address] [place], [address] Platelet mean volume (Bld) [Entitic vol] 11.1 fL Normal 6.2-12.0 [facility] Comment on above: Order Comment: 109.1 Performed By: #### L 100.0100 ####[facility] [address] [place], [address] Platelets (Bld) [#/Vol] 199 10*3/uL Normal 150-450 [facility] Comment on above: Order Comment: 109.1 Performed By: #### L 100.0100 ####[facility] [address] [place], [address] RBC (Bld) [#/Vol] 4.55 10*6/uL Low 4.6-6.2 [facility] Comment on above: Order Comment: 109.1 Performed By: #### L 100.0100 ####[facility] [address] [place], [address] RDW SD 42.5 fl Normal 35.1-43.9 [facility] Comment on above: Order Comment: 109.1 Performed By: #### L 100.0100 ####[facility] [address] [place], [address] WBC (Bld) [#/Vol] 8.6 10*3/uL Normal 4.4-11.0 [facility] Comment on above: Order Comment: 109.1 Performed By: #### L 100.0100 ####[facility] [address] [place], [address] Eosinophil percentageOrdered By: Renard Burgos on 08-05-2024 Eosinophils/100 WBC (Bld) 0.8 % 0-5 [facility] Erythrocyte distribution wid th (RBC) [Ratio]Ordered By: Renard Burgos on 08-05-2024 Erythrocyte distribution width (RBC) [Entitic vol] 42.5 fL 35.1-43.9 [facility] Erythrocyte distribution wid th ratioOrdered By: Renard Burgos on 08-05-2024 Erythrocyte distribution width (RBC) [Ratio] 12.7 % 11.6-14.6 [facility] Erythrocyte distribution wid th standard deviationOrdered By: Renard Burgos on 08-05-2024 Erythrocyte distribution width (RBC) [Ratio] 42.5 fl 35.1-43.9 [facility] Hematocrit Auto (Bld) [Volum e fraction]Ordered By: Renard Burgos on 08-05-2024 Hematocrit (Bld) [Volume fraction] 41.6 % 40-54 [facility] Hemoglobin measurementOrdere d By: Renard Burgos on 08-05-2024 Hemoglobin (Bld) [Mass/Vol] 13.7 g/dL 13.0-16.5 [facility] Immature granulocytes/100 WB C Auto (Bld)Ordered By: Renard Burgos on 08-05-2024 Immature granulocytes/100 WBC (Bld) 0.300 % 0.0-0.9 [facility] Comment on above: IG% - Immature Granu locytes (promyelocytes, myelocytes and metamyelocytes) > 1% indicates that a LEFT SHIFT is Present. Lymphocytes Auto (Unsp spec) [#/Vol]Ordered By: Renard Burgos on 08-05-2024 Lymphocytes (Bld) [#/Vol] 2.31 10*3/uL 0.83-4.51 [facility] Lymphocytes/100 WBC Auto (Un sp spec)Ordered By: Renard Burgos on 08-05-2024 Lymphocytes/100 WBC (Bld) 26.9 % 19-41 [facility] MCV (mean corpuscular volume ) determinationOrdered By: Renard Burgos on 08-05-2024 MCV (RBC) [Entitic vol] 91.4 fL 80-94 [facility] Mean corpuscular hemoglobin (MCH) determinationOrdered By: Renard Burgos on 08-05-2024 MCH (RBC) [Entitic mass] 30.1 pg 27.0-32.0 [facility] Mean corpuscular hemoglobin concentration (MCHC) determinationOrdered By: Renard Burgos on 08-05-2024 MCHC (RBC) [Mass/Vol] 32.9 g/dL 32-36 [facility] Mean platelet volume determi nationOrdered By: Renard Burgos on 08-05-2024 Platelet mean volume (Bld) [Entitic vol] 11.1 fL 6.2-12.0 [facility] Monocyte percentageOrdered B y: Renard Burgos on 08-05-2024 Monocytes/100 WBC (Bld) 8.3 % 0-10 [facility] Neutrophil percentageOrdered By: Renard Burgos on 08-05-2024 Neutrophils/100 WBC (Bld) 63.1 % 47-70 [facility] Nucleated red blood cell per centageOrdered By: Renard Burgos on 08-05-2024 Nucleated RBC/100 WBC (Bld) [Ratio] 0 % 0-5 [facility] Platelet countOrdered By: Garrick Bhatt on 08-05-2024 Platelets (Bld) [#/Vol] 199 10*3/uL 150-450 [facility] RBC Auto (Bld) [#/Vol]Ordere d By: Renard Burgos on 08-05-2024 RBC (Bld) [#/Vol] 4.55 10*6/uL Low 4.6-6.2 [facility] White blood cell (WBC) count Ordered By: Renard Burgos on 08-05-2024 WBC (Bld) [#/Vol] 8.6 10*3/uL 4.4-11.0 [facility] Absolute lymphocyte countOrd ered By: Renard Burgos on 07-29-2024 Lymphocytes Auto (Unsp spec) [#/Vol] 1.93 10*3/uL 0.83-4.51 [facility] Absolute neutrophil countOrd ered By: Renard Burgos on 07-29-2024 Neutrophils (Bld) [#/Vol] 6.8 10*3/uL 2.0-7.7 [facility] Automated lymphocyte count a s percentage of total leukocytesOrdered By: Renard Burgos on 07-29-2024 Lymphocytes/100 WBC Auto (Unsp spec) 20.2 % 19-41 [facility] Basophil percentageOrdered B y: Renard Burgos on 07-29-2024 Basophils/100 WBC (Bld) 0.5 % 0-1 [facility] CBC W/Diff, Automatedon 07-01 Absolute Lymph 1.93 X10 3/uL Normal 0.83-4.51 [facility] Comment on above: Order Comment: 109-1 Performed By: #### L 100.0100 ####[facility] [address] [place], [address] Absolute Neut 6.8 X10 3/uL Normal 2.0-7.7 [facility] Comment on above: Order Comment: 109-1 Performed By: #### L 100.0100 ####[facility] [address] [place], [address] Basophils/100 WBC (Bld) 0.5 % Normal 0-1 [facility] Comment on above: Order Comment: 109-1 Performed By: #### L 100.0100 ####[facility] [address] [place], [address] Eosinophils/100 WBC (Bld) 0.7 % Normal 0-5 [facility] Comment on above: Order Comment: 109-1 Performed By: #### L 100.0100 ####[facility] [address] [place], [address] Erythrocyte distribution width (RBC) [Ratio] 12.8 % Normal 11.6-14.6 [facility] Comment on above: Order Comment: 109-1 Performed By: #### L 100.0100 ####[facility] [address] [place], [address] Hematocrit (Bld) [Volume fraction] 40.7 % Normal 40-54 [facility] Comment on above: Order Comment: 109-1 Performed By: #### L 100.0100 ####[facility] [address] [place], [address] Hemoglobin (Bld) [Mass/Vol] 13.5 g/dL Normal 13.0-16.5 [facility] Comment on above: Order Comment: 109-1 Performed By: #### L 100.0100 ####[facility] [address] [place], [address] IG% 0.400 Normal 0.0-0.9 [facility] Comment on above: Order Comment: 109-1 Result Comment: IG% - Immature Granulocytes (promyelocytes, myelocytes andmetamyelocytes) > 1% indicates that a LEFT SHIFT is Present. Performed By: #### L 100.0100 ####[facility] [address] [place], [address] Lymphocytes/100 WBC (Bld) 20.2 % Normal 19-41 [facility] Comment on above: Order Comment: 109-1 Performed By: #### L 100.0100 ####[facility] [address] [place], [address] MCH (RBC) [Entitic mass] 29.9 pg Normal 27.0-32.0 [facility] Comment on above: Order Comment: 109-1 Performed By: #### L 100.0100 ####[facility] [address] [place], [address] MCHC (RBC) [Mass/Vol] 33.2 g/dL Normal 32-36 [facility] Comment on above: Order Comment: 109-1 Performed By: #### L 100.0100 ####[facility] [address] [place], [address] MCV (RBC) [Entitic vol] 90.0 fL Normal 80-94 [facility] Comment on above: Order Comment: 109-1 Performed By: #### L 100.0100 ####[facility] [address] [place], [address] Monocytes/100 WBC (Bld) 7.1 % Normal 0-10 [facility] Comment on above: Order Comment: 109-1 Performed By: #### L 100.0100 ####[facility] [address] [place], [address] Neutrophils/100 WBC (Bld) 71.1 % High 47-70 [facility] Comment on above: Order Comment: 109-1 Performed By: #### L 100.0100 ####[facility] [address] [place], [address] Nucleated RBC (Bld) [#/Vol] 0 10*3/uL Normal 0-5 [facility] Comment on above: Order Comment: 109-1 Performed By: #### L 100.0100 ####[facility] [address] [place], [address] Platelet mean volume (Bld) [Entitic vol] 11.2 fL Normal 6.2-12.0 [facility] Comment on above: Order Comment: 109-1 Performed By: #### L 100.0100 ####[facility] [address] [place], [address] Platelets (Bld) [#/Vol] 218 10*3/uL Normal 150-450 [facility] Comment on above: Order Comment: 109-1 Performed By: #### L 100.0100 ####[facility] [address] [place], [address] RBC (Bld) [#/Vol] 4.52 10*6/uL Low 4.6-6.2 [facility] Comment on above: Order Comment: 109-1 Performed By: #### L 100.0100 ####[facility] [address] [place], [address] RDW SD 41.9 fl Normal 35.1-43.9 [facility] Comment on above: Order Comment: 109-1 Performed By: #### L 100.0100 ####[facility] [address] [place], [address] WBC (Bld) [#/Vol] 9.6 10*3/uL Normal 4.4-11.0 [facility] Comment on above: Order Comment: 109-1 Performed By: #### L 100.0100 ####[facility] [address] [place], [address] Eosinophil percentageOrdered By: Renard Burgos on 07-29-2024 Eosinophils/100 WBC (Bld) 0.7 % 0-5 [facility] Erythrocyte distribution wid th ratioOrdered By: Renard Burgos on 07-29-2024 Erythrocyte distribution width (RBC) [Ratio] 12.8 % 11.6-14.6 [facility] Erythrocyte distribution wid th standard deviationOrdered By: Renard Burgos on 07-29-2024 Erythrocyte distribution width (RBC) [Entitic vol] 41.9 fL 35.1-43.9 [facility] Erythrocyte distribution width (RBC) [Ratio] 41.9 fl 35.1-43.9 [facility] Hematocrit Auto (Bld) [Volum e fraction]Ordered By: Renard Burgos on 07-29-2024 Hematocrit (Bld) [Volume fraction] 40.7 % 40-54 [facility] Hemoglobin measurementOrdere d By: Renard Burgos on 07-29-2024 Hemoglobin (Bld) [Mass/Vol] 13.5 g/dL 13.0-16.5 [facility] Immature granulocytes/100 WB C Auto (Bld)Ordered By: Renard Burgos on 07-29-2024 Immature granulocytes/100 WBC (Bld) 0.400 % 0.0-0.9 [facility] Comment on above: IG% - Immature Granu locytes (promyelocytes, myelocytes and metamyelocytes) > 1% indicates that a LEFT SHIFT is Present. Lymphocytes Auto (Unsp spec) [#/Vol]Ordered By: Renard Burgos on 07-29-2024 Lymphocytes (Bld) [#/Vol] 1.93 10*3/uL 0.83-4.51 [facility] Lymphocytes/100 WBC Auto (Un sp spec)Ordered By: Renard Burgos on 07-29-2024 Lymphocytes/100 WBC (Bld) 20.2 % 19-41 [facility] MCV (mean corpuscular volume ) determinationOrdered By: Renard Burgos on 07-29-2024 MCV (RBC) [Entitic vol] 90.0 fL 80-94 [facility] Mean corpuscular hemoglobin (MCH) determinationOrdered By: Renard Burgos on 07-29-2024 MCH (RBC) [Entitic mass] 29.9 pg 27.0-32.0 [facility] Mean corpuscular hemoglobin concentration (MCHC) determinationOrdered By: Renard Burgos on 07-29-2024 MCHC (RBC) [Mass/Vol] 33.2 g/dL 32-36 [facility] Mean platelet volume determi nationOrdered By: Renard Burgos on 07-29-2024 Platelet mean volume (Bld) [Entitic vol] 11.2 fL 6.2-12.0 [facility] Monocyte percentageOrdered B y: Renard uBrgos on 07-29-2024 Monocytes/100 WBC (Bld) 7.1 % 0-10 [facility] Neutrophil percentageOrdered By: Renard Burgos on 07-29-2024 Neutrophils/100 WBC (Bld) 71.1 % High 47-70 [facility] Nucleated red blood cell per centageOrdered By: Renard Burgos on 07-29-2024 Nucleated RBC/100 WBC (Bld) [Ratio] 0 % 0-5 [facility] Platelet countOrdered By: Garrick Bhatt on 07-29-2024 Platelets (Bld) [#/Vol] 218 10*3/uL 150-450 [facility] RBC Auto (Bld) [#/Vol]Ordere d By: Renard Burgos on 07-29-2024 RBC (Bld) [#/Vol] 4.52 10*6/uL Low 4.6-6.2 [facility] White blood cell (WBC) count Ordered By: Renard Burgos on 07-29-2024 WBC (Bld) [#/Vol] 9.6 10*3/uL 4.4-11.0 [facility] Absolute lymphocyte countOrd ered By: Renard Burgos on 07-22-2024 Lymphocytes Auto (Unsp spec) [#/Vol] 1.90 10*3/uL 0.83-4.51 [facility] Absolute neutrophil countOrd ered By: Renard Burgos on 07-22-2024 Neutrophils (Bld) [#/Vol] 5.2 10*3/uL 2.0-7.7 [facility] Automated lymphocyte count a s percentage of total leukocytesOrdered By: Renard Burgos on 07-22-2024 Lymphocytes/100 WBC Auto (Unsp spec) 23.9 % 19-41 [facility] Basophil percentageOrdered B y: Renard Burgos on 07-22-2024 Basophils/100 WBC (Bld) 0.6 % 0-1 [facility] CBC W/Diff, Automatedon 06-30 Absolute Lymph 1.90 X10 3/uL Normal 0.83-4.51 [facility] Comment on above: Order Comment: 109.1 Performed By: #### L 100.0100 ####[facility] [address] [place], [address] Absolute Neut 5.2 X10 3/uL Normal 2.0-7.7 [facility] Comment on above: Order Comment: 109.1 Performed By: #### L 100.0100 ####[facility] [address] [place], [address] Basophils/100 WBC (Bld) 0.6 % Normal 0-1 [facility] Comment on above: Order Comment: 109.1 Performed By: #### L 100.0100 ####[facility] [address] [place], [address] Eosinophils/100 WBC (Bld) 0.9 % Normal 0-5 [facility] Comment on above: Order Comment: 109.1 Performed By: #### L 100.0100 ####[facility] [address] [place], [address] Erythrocyte distribution width (RBC) [Ratio] 12.9 % Normal 11.6-14.6 [facility] Comment on above: Order Comment: 109.1 Performed By: #### L 100.0100 ####[facility] [address] [place], [address] Hematocrit (Bld) [Volume fraction] 41.4 % Normal 40-54 [facility] Comment on above: Order Comment: 109.1 Performed By: #### L 100.0100 ####[facility] [address] [place], [address] Hemoglobin (Bld) [Mass/Vol] 13.5 g/dL Normal 13.0-16.5 [facility] Comment on above: Order Comment: 109.1 Performed By: #### L 100.0100 ####[facility] [address] [place], [address] IG% 0.300 Normal 0.0-0.9 [facility] Comment on above: Order Comment: 109.1 Result Comment: IG% - Immature Granulocytes (promyelocytes, myelocytes andmetamyelocytes) > 1% indicates that a LEFT SHIFT is Present. Performed By: #### L 100.0100 ####[facility] [address] [place], [address] Lymphocytes/100 WBC (Bld) 23.9 % Normal 19-41 [facility] Comment on above: Order Comment: 109.1 Performed By: #### L 100.0100 ####[facility] [address] [place], [address] MCH (RBC) [Entitic mass] 29.8 pg Normal 27.0-32.0 [facility] Comment on above: Order Comment: 109.1 Performed By: #### L 100.0100 ####[facility] [address] [place], [address] MCHC (RBC) [Mass/Vol] 32.6 g/dL Normal 32-36 [facility] Comment on above: Order Comment: 109.1 Performed By: #### L 100.0100 ####[facility] [address] [place], [address] MCV (RBC) [Entitic vol] 91.4 fL Normal 80-94 [facility] Comment on above: Order Comment: 109.1 Performed By: #### L 100.0100 ####[facility] [address] [place], [address] Monocytes/100 WBC (Bld) 9.4 % Normal 0-10 [facility] Comment on above: Order Comment: 109.1 Performed By: #### L 100.0100 ####[facility] [address] [place], [address] Neutrophils/100 WBC (Bld) 64.9 % Normal 47-70 [facility] Comment on above: Order Comment: 109.1 Performed By: #### L 100.0100 ####[facility] [address] [place], [address] Nucleated RBC (Bld) [#/Vol] 0 10*3/uL Normal 0-5 [facility] Comment on above: Order Comment: 109.1 Performed By: #### L 100.0100 ####[facility] [address] [place], [address] Platelet mean volume (Bld) [Entitic vol] 11.5 fL Normal 6.2-12.0 [facility] Comment on above: Order Comment: 109.1 Performed By: #### L 100.0100 ####[facility] [address] [place], [address] Platelets (Bld) [#/Vol] 202 10*3/uL Normal 150-450 [facility] Comment on above: Order Comment: 109.1 Performed By: #### L 100.0100 ####[facility] [address] [place], [address] RBC (Bld) [#/Vol] 4.53 10*6/uL Low 4.6-6.2 [facility] Comment on above: Order Comment: 109.1 Performed By: #### L 100.0100 ####[facility] [address] [place], [address] RDW SD 42.7 fl Normal 35.1-43.9 [facility] Comment on above: Order Comment: 109.1 Performed By: #### L 100.0100 ####[facility] [address] [place], [address] WBC (Bld) [#/Vol] 8.0 10*3/uL Normal 4.4-11.0 [facility] Comment on above: Order Comment: 109.1 Performed By: #### L 100.0100 ####[facility] [address] [place], [address] Eosinophil percentageOrdered By: Renard Burgos on 07-22-2024 Eosinophils/100 WBC (Bld) 0.9 % 0-5 [facility] Erythrocyte distribution wid th ratioOrdered By: Renard Burgos on 07-22-2024 Erythrocyte distribution width (RBC) [Ratio] 12.9 % 11.6-14.6 [facility] Erythrocyte distribution wid th standard deviationOrdered By: Renard Burgos on 07-22-2024 Erythrocyte distribution width (RBC) [Entitic vol] 42.7 fL 35.1-43.9 [facility] Erythrocyte distribution width (RBC) [Ratio] 42.7 fl 35.1-43.9 [facility] Hematocrit Auto (Bld) [Volum e fraction]Ordered By: Renard Burgos on 07-22-2024 Hematocrit (Bld) [Volume fraction] 41.4 % 40-54 [facility] Hemoglobin measurementOrdere d By: Renard Burgos on 07-22-2024 Hemoglobin (Bld) [Mass/Vol] 13.5 g/dL 13.0-16.5 [facility] Immature granulocytes/100 WB C Auto (Bld)Ordered By: Renard Burgos on 07-22-2024 Immature granulocytes/100 WBC (Bld) 0.300 % 0.0-0.9 [facility] Comment on above: IG% - Immature Granu locytes (promyelocytes, myelocytes and metamyelocytes) > 1% indicates that a LEFT SHIFT is Present. Lymphocytes Auto (Unsp spec) [#/Vol]Ordered By: Renard Burgos on 07-22-2024 Lymphocytes (Bld) [#/Vol] 1.90 10*3/uL 0.83-4.51 [facility] Lymphocytes/100 WBC Auto (Un sp spec)Ordered By: Renard Burgos on 07-22-2024 Lymphocytes/100 WBC (Bld) 23.9 % 19-41 [facility] MCV (mean corpuscular volume ) determinationOrdered By: Renard Burgos on 07-22-2024 MCV (RBC) [Entitic vol] 91.4 fL 80-94 [facility] Mean corpuscular hemoglobin (MCH) determinationOrdered By: Renard Burgos on 07-22-2024 MCH (RBC) [Entitic mass] 29.8 pg 27.0-32.0 [facility] Mean corpuscular hemoglobin concentration (MCHC) determinationOrdered By: Renard Burgos on 07-22-2024 MCHC (RBC) [Mass/Vol] 32.6 g/dL 32-36 [facility] Mean platelet volume determi nationOrdered By: Renard Burgos on 07-22-2024 Platelet mean volume (Bld) [Entitic vol] 11.5 fL 6.2-12.0 [facility] Monocyte percentageOrdered B y: Renard Burgos on 07-22-2024 Monocytes/100 WBC (Bld) 9.4 % 0-10 [facility] Neutrophil percentageOrdered By: Renard Burgos on 07-22-2024 Neutrophils/100 WBC (Bld) 64.9 % 47-70 [facility] Nucleated red blood cell per centageOrdered By: Renard Burgos on 07-22-2024 Nucleated RBC/100 WBC (Bld) [Ratio] 0 % 0-5 [facility] Platelet countOrdered By: Garrick Bhatt on 07-22-2024 Platelets (Bld) [#/Vol] 202 10*3/uL 150-450 [facility] RBC Auto (Bld) [#/Vol]Ordere d By: Renard Burgos on 07-22-2024 RBC (Bld) [#/Vol] 4.53 10*6/uL Low 4.6-6.2 [facility] White blood cell (WBC) count Ordered By: Renard Burgos on 07-22-2024 WBC (Bld) [#/Vol] 8.0 10*3/uL 4.4-11.0 [facility] L506.1001on 07-16-2024 Vitamin D 25-OH 21.8 ng/mL Low 30-100 [facility] Comment on above: Order Comment: 109 Result Comment: Edilma min D StatusDeficiency: <20 ng/mL (50nmol/L)Insufficiency: 20-30 ng/mL (50-75 nmol/L)Sufficiency: 30-100 ng/mL (75-250 nmol/L)Toxicity: >100 ng/mL (>250 nmol/L) Performed By: #### L 506.1001 ####[facility] [address] [place], [address] Vitamin D, 25-hydroxyOrdered By: Renard Burgos on 07-16-2024 Vitamin D 25-Hydroxy 21.8 ng/mL Low 30-100 [facility] Comment on above: Vitamin D StatusDefi ciency: <20 ng/mL (50nmol/L)Insufficiency: 20-30 ng/mL (50-75 nmol/L)Sufficiency: 30-100 ng/mL (75-250 nmol/L)Toxicity: >100 ng/mL (>250 nmol/L) Absolute lymphocyte countOrd ered By: Renard Burgos on 07-15-2024 Lymphocytes Auto (Unsp spec) [#/Vol] 2.10 10*3/uL 0.83-4.51 [facility] Absolute neutrophil countOrd ered By: Renard Burgos on 07-15-2024 Neutrophils (Bld) [#/Vol] 6.9 10*3/uL 2.0-7.7 [facility] Automated lymphocyte count a s percentage of total leukocytesOrdered By: Renard Burgos on 07-15-2024 Lymphocytes/100 WBC Auto (Unsp spec) 21.0 % 19-41 [facility] Basophil percentageOrdered B y: Renard Burgos on 07-15-2024 Basophils/100 WBC (Bld) 0.5 % 0-1 [facility] CBC W/Diff, Automatedon 03- Absolute Lymph 2.10 X10 3/uL Normal 0.83-4.51 [facility] Comment on above: Order Comment: 109.1 Performed By: #### L 100.0100 ####[facility] [address] [place], [address] Absolute Neut 6.9 X10 3/uL Normal 2.0-7.7 [facility] Comment on above: Order Comment: 109.1 Performed By: #### L 100.0100 ####[facility] [address] [place], [address] Basophils/100 WBC (Bld) 0.5 % Normal 0-1 [facility] Comment on above: Order Comment: 109.1 Performed By: #### L 100.0100 ####[facility] [address] [place], [address] Eosinophils/100 WBC (Bld) 1.2 % Normal 0-5 [facility] Comment on above: Order Comment: 109.1 Performed By: #### L 100.0100 ####[facility] [address] [place], [address] Erythrocyte distribution width (RBC) [Ratio] 12.9 % Normal 11.6-14.6 [facility] Comment on above: Order Comment: 109.1 Performed By: #### L 100.0100 ####[facility] [address] [place], [address] Hematocrit (Bld) [Volume fraction] 41.0 % Normal 40-54 [facility] Comment on above: Order Comment: 109.1 Performed By: #### L 100.0100 ####[facility] [address] [place], [address] Hemoglobin (Bld) [Mass/Vol] 13.4 g/dL Normal 13.0-16.5 [facility] Comment on above: Order Comment: 109.1 Performed By: #### L 100.0100 ####[facility] [address] [place], [address] IG% 0.300 Normal 0.0-0.9 [facility] Comment on above: Order Comment: 109.1 Result Comment: IG% - Immature Granulocytes (promyelocytes, myelocytes andmetamyelocytes) > 1% indicates that a LEFT SHIFT is Present. Performed By: #### L 100.0100 ####[facility] [address] [place], [address] Lymphocytes/100 WBC (Bld) 21.0 % Normal 19-41 [facility] Comment on above: Order Comment: 109.1 Performed By: #### L 100.0100 ####[facility] [address] [place], [address] MCH (RBC) [Entitic mass] 29.7 pg Normal 27.0-32.0 [facility] Comment on above: Order Comment: 109.1 Performed By: #### L 100.0100 ####[facility] [address] [place], [address] MCHC (RBC) [Mass/Vol] 32.7 g/dL Normal 32-36 [facility] Comment on above: Order Comment: 109.1 Performed By: #### L 100.0100 ####[facility] [address] [place], [address] MCV (RBC) [Entitic vol] 90.9 fL Normal 80-94 [facility] Comment on above: Order Comment: 109.1 Performed By: #### L 100.0100 ####[facility] [address] [place], [address] Monocytes/100 WBC (Bld) 7.6 % Normal 0-10 [facility] Comment on above: Order Comment: 109.1 Performed By: #### L 100.0100 ####[facility] [address] [place], [address] Neutrophils/100 WBC (Bld) 69.4 % Normal 47-70 [facility] Comment on above: Order Comment: 109.1 Performed By: #### L 100.0100 ####[facility] [address] [place], [address] Nucleated RBC (Bld) [#/Vol] 0 10*3/uL Normal 0-5 [facility] Comment on above: Order Comment: 109.1 Performed By: #### L 100.0100 ####[facility] [address] [place], [address] Platelet mean volume (Bld) [Entitic vol] 11.4 fL Normal 6.2-12.0 [facility] Comment on above: Order Comment: 109.1 Performed By: #### L 100.0100 ####[facility] [address] [place], [address] Platelets (Bld) [#/Vol] 206 10*3/uL Normal 150-450 [facility] Comment on above: Order Comment: 109.1 Performed By: #### L 100.0100 ####[facility] [address] [place], [address] RBC (Bld) [#/Vol] 4.51 10*6/uL Low 4.6-6.2 [facility] Comment on above: Order Comment: 109.1 Performed By: #### L 100.0100 ####[facility] [address] [place], [address] RDW SD 42.3 fl Normal 35.1-43.9 [facility] Comment on above: Order Comment: 109.1 Performed By: #### L 100.0100 ####[facility] [address] [place], [address] WBC (Bld) [#/Vol] 10.0 10*3/uL Normal 4.4-11.0 [facility] Comment on above: Order Comment: 109.1 Performed By: #### L 100.0100 ####[facility] [address] [place], [address] Eosinophil percentageOrdered By: Renard Burgos on 07-15-2024 Eosinophils/100 WBC (Bld) 1.2 % 0-5 [facility] Erythrocyte distribution wid th ratioOrdered By: Renard Burgos on 07-15-2024 Erythrocyte distribution width (RBC) [Ratio] 12.9 % 11.6-14.6 [facility] Erythrocyte distribution wid th standard deviationOrdered By: Renard Burgos on 07-15-2024 Erythrocyte distribution width (RBC) [Entitic vol] 42.3 fL 35.1-43.9 [facility] Erythrocyte distribution width (RBC) [Ratio] 42.3 fl 35.1-43.9 [facility] Hematocrit Auto (Bld) [Volum e fraction]Ordered By: Renard Burgos on 07-15-2024 Hematocrit (Bld) [Volume fraction] 41.0 % 40-54 [facility] Hemoglobin measurementOrdere d By: Renard Burgos on 07-15-2024 Hemoglobin (Bld) [Mass/Vol] 13.4 g/dL 13.0-16.5 [facility] Immature granulocytes/100 WB C Auto (Bld)Ordered By: Renard Burgos on 07-15-2024 Immature granulocytes/100 WBC (Bld) 0.300 % 0.0-0.9 [facility] Comment on above: IG% - Immature Granu locytes (promyelocytes, myelocytes and metamyelocytes) > 1% indicates that a LEFT SHIFT is Present. Lymphocytes Auto (Unsp spec) [#/Vol]Ordered By: Renard Burgos on 07-15-2024 Lymphocytes (Bld) [#/Vol] 2.10 10*3/uL 0.83-4.51 [facility] Lymphocytes/100 WBC Auto (Un sp spec)Ordered By: Renard Burgos on 07-15-2024 Lymphocytes/100 WBC (Bld) 21.0 % 19-41 [facility] MCV (mean corpuscular volume ) determinationOrdered By: Renard Burgos on 07-15-2024 MCV (RBC) [Entitic vol] 90.9 fL 80-94 [facility] Mean corpuscular hemoglobin (MCH) determinationOrdered By: Renard Burgos on 07-15-2024 MCH (RBC) [Entitic mass] 29.7 pg 27.0-32.0 [facility] Mean corpuscular hemoglobin concentration (MCHC) determinationOrdered By: Renard Burgos on 07-15-2024 MCHC (RBC) [Mass/Vol] 32.7 g/dL 32-36 [facility] Mean platelet volume determi nationOrdered By: Renard Burgos on 07-15-2024 Platelet mean volume (Bld) [Entitic vol] 11.4 fL 6.2-12.0 [facility] Monocyte percentageOrdered B y: Renard Burgos on 07-15-2024 Monocytes/100 WBC (Bld) 7.6 % 0-10 [facility] Neutrophil percentageOrdered By: Renard Burgos on 07-15-2024 Neutrophils/100 WBC (Bld) 69.4 % 47-70 [facility] Nucleated red blood cell per centageOrdered By: Renard Burgos on 07-15-2024 Nucleated RBC/100 WBC (Bld) [Ratio] 0 % 0-5 [facility] Platelet countOrdered By: Garrick Bhatt on 07-15-2024 Platelets (Bld) [#/Vol] 206 10*3/uL 150-450 [facility] RBC Auto (Bld) [#/Vol]Ordere d By: Renard Burgos on 07-15-2024 RBC (Bld) [#/Vol] 4.51 10*6/uL Low 4.6-6.2 [facility] White blood cell (WBC) count Ordered By: Renard Burgos on 07-15-2024 WBC (Bld) [#/Vol] 10.0 10*3/uL 4.4-11.0 [facility] Absolute lymphocyte countOrd ered By: Renard Burgos on 07-08-2024 Lymphocytes Auto (Unsp spec) [#/Vol] 2.02 10*3/uL 0.83-4.51 [facility] Absolute neutrophil countOrd ered By: Renard Burgos on 07-08-2024 Neutrophils (Bld) [#/Vol] 7.2 10*3/uL 2.0-7.7 [facility] Automated lymphocyte count a s percentage of total leukocytesOrdered By: Renard Burgos on 07-08-2024 Lymphocytes/100 WBC Auto (Unsp spec) 19.7 % 19-41 [facility] Basophil percentageOrdered B y: Renard Burgos on 07-08-2024 Basophils/100 WBC (Bld) 0.6 % 0-1 [facility] CBC W/Diff, Automatedon 06-29 0-2024 Absolute Lymph 2.02 X10 3/uL Normal 0.83-4.51 [facility] Comment on above: Order Comment: 109-1 Performed By: #### L 100.0100 ####[facility] [address] [place], [address] Absolute Neut 7.2 X10 3/uL Normal 2.0-7.7 [facility] Comment on above: Order Comment: 109-1 Performed By: #### L 100.0100 ####[facility] [address] [place], [address] Basophils/100 WBC (Bld) 0.6 % Normal 0-1 [facility] Comment on above: Order Comment: 109-1 Performed By: #### L 100.0100 ####[facility] [address] [place], [address] Eosinophils/100 WBC (Bld) 1.5 % Normal 0-5 [facility] Comment on above: Order Comment: 109-1 Performed By: #### L 100.0100 ####[facility] [address] [place], [address] Erythrocyte distribution width (RBC) [Ratio] 12.9 % Normal 11.6-14.6 [facility] Comment on above: Order Comment: 109-1 Performed By: #### L 100.0100 ####[facility] [address] [place], [address] Hematocrit (Bld) [Volume fraction] 40.6 % Normal 40-54 [facility] Comment on above: Order Comment: 109-1 Performed By: #### L 100.0100 ####[facility] [address] [place], [address] Hemoglobin (Bld) [Mass/Vol] 13.6 g/dL Normal 13.0-16.5 [facility] Comment on above: Order Comment: 109-1 Performed By: #### L 100.0100 ####[facility] [address] [place], [address] IG% 0.500 Normal 0.0-0.9 [facility] Comment on above: Order Comment: 109-1 Result Comment: IG% - Immature Granulocytes (promyelocytes, myelocytes andmetamyelocytes) > 1% indicates that a LEFT SHIFT is Present. Performed By: #### L 100.0100 ####[facility] [address] [place], [address] Lymphocytes/100 WBC (Bld) 19.7 % Normal 19-41 [facility] Comment on above: Order Comment: 109-1 Performed By: #### L 100.0100 ####[facility] [address] [place], [address] MCH (RBC) [Entitic mass] 30.5 pg Normal 27.0-32.0 [facility] Comment on above: Order Comment: 109-1 Performed By: #### L 100.0100 ####[facility] [address] [place], [address] MCHC (RBC) [Mass/Vol] 33.5 g/dL Normal 32-36 [facility] Comment on above: Order Comment: 109-1 Performed By: #### L 100.0100 ####[facility] [address] [place], [address] MCV (RBC) [Entitic vol] 91.0 fL Normal 80-94 [facility] Comment on above: Order Comment: 109-1 Performed By: #### L 100.0100 ####[facility] [address] [place], [address] Monocytes/100 WBC (Bld) 7.4 % Normal 0-10 [facility] Comment on above: Order Comment: 109-1 Performed By: #### L 100.0100 ####[facility] [address] [place], [address] Neutrophils/100 WBC (Bld) 70.3 % High 47-70 [facility] Comment on above: Order Comment: 109-1 Performed By: #### L 100.0100 ####[facility] [address] [place], [address] Nucleated RBC (Bld) [#/Vol] 0 10*3/uL Normal 0-5 [facility] Comment on above: Order Comment: 109-1 Performed By: #### L 100.0100 ####[facility] [address] [place], [address] Platelet mean volume (Bld) [Entitic vol] 11.1 fL Normal 6.2-12.0 [facility] Comment on above: Order Comment: 109-1 Performed By: #### L 100.0100 ####[facility] [address] [place], [address] Platelets (Bld) [#/Vol] 207 10*3/uL Normal 150-450 [facility] Comment on above: Order Comment: 109-1 Performed By: #### L 100.0100 ####[facility] [address] [place], [address] RBC (Bld) [#/Vol] 4.46 10*6/uL Low 4.6-6.2 [facility] Comment on above: Order Comment: 109-1 Performed By: #### L 100.0100 ####[facility] [address] [place], [address] RDW SD 42.5 fl Normal 35.1-43.9 [facility] Comment on above: Order Comment: 109-1 Performed By: #### L 100.0100 ####[facility] [address] [place], [address] WBC (Bld) [#/Vol] 10.3 10*3/uL Normal 4.4-11.0 [facility] Comment on above: Order Comment: 109-1 Performed By: #### L 100.0100 ####[facility] [address] [place], [address] Eosinophil percentageOrdered By: Renard Burgos on 07-08-2024 Eosinophils/100 WBC (Bld) 1.5 % 0-5 [facility] Erythrocyte distribution wid th ratioOrdered By: Renard Burgos on 07-08-2024 Erythrocyte distribution width (RBC) [Ratio] 12.9 % 11.6-14.6 [facility] Erythrocyte distribution wid th standard deviationOrdered By: Renard Burgos on 07-08-2024 Erythrocyte distribution width (RBC) [Entitic vol] 42.5 fL 35.1-43.9 [facility] Erythrocyte distribution width (RBC) [Ratio] 42.5 fl 35.1-43.9 [facility] Hematocrit Auto (Bld) [Volum e fraction]Ordered By: Renard Burgos on 07-08-2024 Hematocrit (Bld) [Volume fraction] 40.6 % 40-54 [facility] Hemoglobin measurementOrdere d By: Renadr Burgos on 07-08-2024 Hemoglobin (Bld) [Mass/Vol] 13.6 g/dL 13.0-16.5 [facility] Immature granulocytes/100 WB C Auto (Bld)Ordered By: Renard Burgos on 07-08-2024 Immature granulocytes/100 WBC (Bld) 0.500 % 0.0-0.9 [facility] Comment on above: IG% - Immature Granu locytes (promyelocytes, myelocytes and metamyelocytes) > 1% indicates that a LEFT SHIFT is Present. Lymphocytes Auto (Unsp spec) [#/Vol]Ordered By: Renard Burgos on 07-08-2024 Lymphocytes (Bld) [#/Vol] 2.02 10*3/uL 0.83-4.51 [facility] Lymphocytes/100 WBC Auto (Un sp spec)Ordered By: Renard Burgos on 07-08-2024 Lymphocytes/100 WBC (Bld) 19.7 % 19-41 [facility] MCV (mean corpuscular volume ) determinationOrdered By: Renard Burgos on 07-08-2024 MCV (RBC) [Entitic vol] 91.0 fL 80-94 [facility] Mean corpuscular hemoglobin (MCH) determinationOrdered By: Renard Burgos on 07-08-2024 MCH (RBC) [Entitic mass] 30.5 pg 27.0-32.0 [facility] Mean corpuscular hemoglobin concentration (MCHC) determinationOrdered By: Renard Burgos on 07-08-2024 MCHC (RBC) [Mass/Vol] 33.5 g/dL 32-36 [facility] Mean platelet volume determi nationOrdered By: Renard Burgos on 07-08-2024 Platelet mean volume (Bld) [Entitic vol] 11.1 fL 6.2-12.0 [facility] Monocyte percentageOrdered B y: Renard Burgos on 07-08-2024 Monocytes/100 WBC (Bld) 7.4 % 0-10 [facility] Neutrophil percentageOrdered By: Renard Burgos on 07-08-2024 Neutrophils/100 WBC (Bld) 70.3 % High 47-70 [facility] Nucleated red blood cell per centageOrdered By: Renard Burgos on 07-08-2024 Nucleated RBC/100 WBC (Bld) [Ratio] 0 % 0-5 [facility] Platelet countOrdered By: Garrick Bhatt on 07-08-2024 Platelets (Bld) [#/Vol] 207 10*3/uL 150-450 [facility] RBC Auto (Bld) [#/Vol]Ordere d By: Renard Burgos on 07-08-2024 RBC (Bld) [#/Vol] 4.46 10*6/uL Low 4.6-6.2 [facility] White blood cell (WBC) count Ordered By: Renard Burgos on 07-08-2024 WBC (Bld) [#/Vol] 10.3 10*3/uL 4.4-11.0 [facility] Absolute lymphocyte countOrd ered By: Renard Burgos on 07-01-2024 Lymphocytes Auto (Unsp spec) [#/Vol] 2.03 10*3/uL 0.83-4.51 [facility] Absolute neutrophil countOrd ered By: Renard Burgos on 07-01-2024 Neutrophils (Bld) [#/Vol] 7.0 10*3/uL 2.0-7.7 [facility] Automated lymphocyte count a s percentage of total leukocytesOrdered By: Renard Burgos on 07-01-2024 Lymphocytes/100 WBC Auto (Unsp spec) 20.3 % 19-41 [facility] Basophil percentageOrdered B y: Renard Burgos on 07-01-2024 Basophils/100 WBC (Bld) 0.6 % 0-1 [facility] CBC W/Diff, Automatedon Absolute Lymph 2.03 X10 3/uL Normal 0.83-4.51 [facility] Comment on above: Order Comment: 109 Performed By: #### L 100.0100 ####[facility] [address] [place], [address] Absolute Neut 7.0 X10 3/uL Normal 2.0-7.7 [facility] Comment on above: Order Comment: 109 Performed By: #### L 100.0100 ####[facility] [address] [place], [address] Basophils/100 WBC (Bld) 0.6 % Normal 0-1 [facility] Comment on above: Order Comment: 109 Performed By: #### L 100.0100 ####[facility] [address] [place], [address] Eosinophils/100 WBC (Bld) 1.3 % Normal 0-5 [facility] Comment on above: Order Comment: 109 Performed By: #### L 100.0100 ####[facility] [address] [place], [address] Erythrocyte distribution width (RBC) [Ratio] 13.1 % Normal 11.6-14.6 [facility] Comment on above: Order Comment: 109 Performed By: #### L 100.0100 ####[facility] [address] [place], [address] Hematocrit (Bld) [Volume fraction] 41.7 % Normal 40-54 [facility] Comment on above: Order Comment: 109 Performed By: #### L 100.0100 ####[facility] [address] [place], [address] Hemoglobin (Bld) [Mass/Vol] 13.6 g/dL Normal 13.0-16.5 [facility] Comment on above: Order Comment: 109 Performed By: #### L 100.0100 ####[facility] [address] [place], [address] IG% 0.500 Normal 0.0-0.9 [facility] Comment on above: Order Comment: 109 Result Comment: IG% - Immature Granulocytes (promyelocytes, myelocytes andmetamyelocytes) > 1% indicates that a LEFT SHIFT is Present. Performed By: #### L 100.0100 ####[facility] [address] [place], [address] Lymphocytes/100 WBC (Bld) 20.3 % Normal 19-41 [facility] Comment on above: Order Comment: 109 Performed By: #### L 100.0100 ####[facility] [address] [place], [address] MCH (RBC) [Entitic mass] 29.6 pg Normal 27.0-32.0 [facility] Comment on above: Order Comment: 109 Performed By: #### L 100.0100 ####[facility] [address] [place], [address] MCHC (RBC) [Mass/Vol] 32.6 g/dL Normal 32-36 [facility] Comment on above: Order Comment: 109 Performed By: #### L 100.0100 ####[facility] [address] [place], [address] MCV (RBC) [Entitic vol] 90.8 fL Normal 80-94 [facility] Comment on above: Order Comment: 109 Performed By: #### L 100.0100 ####[facility] [address] [place], [address] Monocytes/100 WBC (Bld) 6.8 % Normal 0-10 [facility] Comment on above: Order Comment: 109 Performed By: #### L 100.0100 ####[facility] [address] [place], [address] Neutrophils/100 WBC (Bld) 70.5 % High 47-70 [facility] Comment on above: Order Comment: 109 Performed By: #### L 100.0100 ####[facility] [address] [place], [address] Nucleated RBC (Bld) [#/Vol] 0 10*3/uL Normal 0-5 [facility] Comment on above: Order Comment: 109 Performed By: #### L 100.0100 ####[facility] [address] [place], [address] Platelet mean volume (Bld) [Entitic vol] 11.0 fL Normal 6.2-12.0 [facility] Comment on above: Order Comment: 109 Performed By: #### L 100.0100 ####[facility] [address] [place], [address] Platelets (Bld) [#/Vol] 208 10*3/uL Normal 150-450 [facility] Comment on above: Order Comment: 109 Performed By: #### L 100.0100 ####[facility] [address] [place], [address] RBC (Bld) [#/Vol] 4.59 10*6/uL Low 4.6-6.2 [facility] Comment on above: Order Comment: 109 Performed By: #### L 100.0100 ####[facility] [address] [place], [address] RDW SD 42.8 fl Normal 35.1-43.9 [facility] Comment on above: Order Comment: 109 Performed By: #### L 100.0100 ####[facility] [address] [place], [address] WBC (Bld) [#/Vol] 10.0 10*3/uL Normal 4.4-11.0 [facility] Comment on above: Order Comment: 109 Performed By: #### L 100.0100 ####[facility] [address] [place], [address] Eosinophil percentageOrdered By: Renard Burgos on 07-01-2024 Eosinophils/100 WBC (Bld) 1.3 % 0-5 [facility] Erythrocyte distribution wid th ratioOrdered By: Renard Burgos on 07-01-2024 Erythrocyte distribution width (RBC) [Ratio] 13.1 % 11.6-14.6 [facility] Erythrocyte distribution wid th standard deviationOrdered By: Renard Burgos on 07-01-2024 Erythrocyte distribution width (RBC) [Entitic vol] 42.8 fL 35.1-43.9 [facility] Erythrocyte distribution width (RBC) [Ratio] 42.8 fl 35.1-43.9 [facility] Hematocrit Auto (Bld) [Volum e fraction]Ordered By: Renard Burgos on 07-01-2024 Hematocrit (Bld) [Volume fraction] 41.7 % 40-54 [facility] Hemoglobin measurementOrdere d By: Renard Burgos on 07-01-2024 Hemoglobin (Bld) [Mass/Vol] 13.6 g/dL 13.0-16.5 [facility] Immature granulocytes/100 WB C Auto (Bld)Ordered By: Renard Burgos on 07-01-2024 Immature granulocytes/100 WBC (Bld) 0.500 % 0.0-0.9 [facility] Comment on above: IG% - Immature Granu locytes (promyelocytes, myelocytes and metamyelocytes) > 1% indicates that a LEFT SHIFT is Present. Lymphocytes Auto (Unsp spec) [#/Vol]Ordered By: Renard Burgos on 07-01-2024 Lymphocytes (Bld) [#/Vol] 2.03 10*3/uL 0.83-4.51 [facility] Lymphocytes/100 WBC Auto (Un sp spec)Ordered By: Renard Burgos on 07-01-2024 Lymphocytes/100 WBC (Bld) 20.3 % 19-41 [facility] MCV (mean corpuscular volume ) determinationOrdered By: Renard Burgos on 07-01-2024 MCV (RBC) [Entitic vol] 90.8 fL 80-94 [facility] Mean corpuscular hemoglobin (MCH) determinationOrdered By: Renard Burgos on 07-01-2024 MCH (RBC) [Entitic mass] 29.6 pg 27.0-32.0 [facility] Mean corpuscular hemoglobin concentration (MCHC) determinationOrdered By: Renard Burgos on 07-01-2024 MCHC (RBC) [Mass/Vol] 32.6 g/dL 32-36 [facility] Mean platelet volume determi nationOrdered By: Renard Burgos on 07-01-2024 Platelet mean volume (Bld) [Entitic vol] 11.0 fL 6.2-12.0 [facility] Monocyte percentageOrdered B y: Renard Burgos on 07-01-2024 Monocytes/100 WBC (Bld) 6.8 % 0-10 [facility] Neutrophil percentageOrdered By: Renard Burgos on 07-01-2024 Neutrophils/100 WBC (Bld) 70.5 % High 47-70 [facility] Nucleated red blood cell per centageOrdered By: Renard Burgos on 07-01-2024 Nucleated RBC/100 WBC (Bld) [Ratio] 0 % 0-5 [facility] Platelet countOrdered By: Garrick Bhatt on 07-01-2024 Platelets (Bld) [#/Vol] 208 10*3/uL 150-450 [facility] RBC Auto (Bld) [#/Vol]Ordere d By: Renard Burgos on 07-01-2024 RBC (Bld) [#/Vol] 4.59 10*6/uL Low 4.6-6.2 [facility] White blood cell (WBC) count Ordered By: Renard Burgos on 07-01-2024 WBC (Bld) [#/Vol] 10.0 10*3/uL 4.4-11.0 [facility] Urine Cultureon 06-30-2024 URC Normal [facility] Comment on above: Performed By: #### M 100.2200, L400.0001 ####[facility] [address] [place], [address] Bilirubin Test strip Ql (U)O rdered By: Renard Burgos on 06-27-2024 Bilirubin Ql (U) Negative Negative [facility] Epithelial cells.squamous LM Ql (Urine sed)Ordered By: Renard Burgos on 06-27-2024 Epithelial cells.squamous LM.HPF (Urine sed) [#/Area] 0 /[HPF] 0-5 [facility] Glucose Ql (U)Ordered By: Garrick Bhatt on 06-27-2024 Urine Glucose (UA) Normal mg/dl Normal [facility] Ketones Test strip Ql (U)Ord ered By: Renard Burgos on 06-27-2024 Ketones Ql (U) Negative Negative [facility] Microscopic analysis of urin e for red blood cells (RBC)Ordered By: Renard Burgos on 06-27-2024 Microscopic analysis of urine for red blood cells (RBC) 0 SEEN /hpf 0-5 [facility] Urine RBC 0 SEEN /hpf 0-5 [facility] Mucus LM Ql (Urine sed)Order ed By: Renard Burgos on 06-27-2024 Mucus Ql (Urine sed) 0 SEEN /hpf [facility] Nitrite Test strip Ql (U)Ord ered By: Renard Burgos on 06-27-2024 Nitrite Ql (U) Negative Negative [facility] Protein Test strip Ql (U)Ord ered By: Renard Burgos on 06-27-2024 Protein Ql (U) 15 mg/dl High Negative [facility] Squamous epithelial cells de tection in urine sediment by light microscopyOrdered By: Renard Burgos on 06-27-2024 Epithelial cells.squamous LM Ql (Urine sed) 0 SEEN /hpf 0-5 [facility] Urinalysis, Completeon 06-27 RBC 0 SEEN Normal 0-5 [facility] Comment on above: Order Comment: ARCHANA TER SPECIMEN Performed By: #### M 100.2200, L400.0001 ####[facility] [address] [place], [address] Urine blood detectionOrdered By: Renard Burgos on 06-27-2024 Urine Occult Blood Negative Negative [facility] Urine clarityOrdered By: Lyubov Burgos on 06-27-2024 Clarity (U) Clear Clear [facility] Urine color determinationOrd ered By: Renard Burgos on 06-27-2024 Color (U) Yellow Yellow [facility] Urine cultureOrdered By: Lyubov Burgos on 06-27-2024 Bacteria identified Cx Nom (U) Staphylococcus warneri Abnormal [facility] Bacteria identified Cx Nom (U) Aerococcus viridans. Abnormal [facility] Bacteria identified Cx Nom (U) Presumptive C albicans Abnormal [facility] Bacteria identified Cx Nom (U) Staphylococcus warneri Abnormal [facility] Bacteria identified Cx Nom (U) Aerococcus viridans. Abnormal [facility] Bacteria identified Cx Nom (U) Presumptive C albicans Abnormal [facility] Urine glucose detectionOrder ed By: Renard Burgos on 06-27-2024 Glucose Ql (U) Normal mg/dl Normal [facility] Urine leukocyte esterase det ection by dipstickOrdered By: Renard Burgos on 06-27-2024 Leukocyte esterase Test strip Ql (U) Negative Negative [facility] Urine pHOrdered By: Renard ocampo on 06-27-2024 pH (U) 7.0 [pH] 5.0 - 8.0 [facility] Urine sediment bacteria coun t by microscopy (number/high power field)Ordered By: Renard Burgos on 06-27-2024 Bacteria LM.HPF (Urine sed) [#/Area] 0 /[HPF] None Seen [facility] Urine specific gravity measu rementOrdered By: Renard Burgos on 06-27-2024 Specific gravity (U) [Rel density] 1.010 1.002-1.030 [facility] Urine urobilinogen measureme ntOrdered By: Renard Burgos on 06-27-2024 Urobilinogen Ql (U) 4 mg/dl High Normal [facility] Urobilinogen Ql (U)Ordered B y: Renard Burgos on 06-27-2024 Urobilinogen (U) [Mass/Vol] 4 mg/dL High Normal [facility] White blood cell countOrdere d By: Renard Burgos on 06-27-2024 Urine WBC 0 SEEN /hpf 0-5 [facility] White blood cell count 0 SEEN /hpf 0-5 [facility] CT CHEST WO IV CONTRASTon CT CHEST WO IV CONTRAST Patient Name: [facility]EL[facility] 1955 [id number] Exam Date/Time: 06/24/2024 16:30 Procedure: CT CHEST [...] 8:07 AM EST Cough x 2months Normal [facility] CT Chest WO contraston 06-26 Nonspecific groundglass densities are noted in the bilateral lower lobes. 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 [facility] Maria Eugenia Ruiz MD - 06/26/2024 Patient Name: [facility]ATH[facility] HOOPER : 1955 [id number] Exam Date/Time: 06/24/2024 16:30 Procedure: CT CHEST [...] Electronically Signed Date/Time: 06/26/2024 8:[address] [facility] [address] Chest WO contrastOrdered By: Maria Eugenia Ruiz on 06-26-2024 [facility] Work Phone: Absolute lymphocyte countOrd ered By: Renard Burgos on 06-24-2024 Lymphocytes Auto (Unsp spec) [#/Vol] 1.65 10*3/uL 0.83-4.51 [facility] Absolute neutrophil countOrd ered By: Renard Burgos on 06-24-2024 Neutrophils (Bld) [#/Vol] 10.2 10*3/uL High 2.0-7.7 [facility] Automated lymphocyte count a s percentage of total leukocytesOrdered By: Renard Burgos on 06-24-2024 Lymphocytes/100 WBC Auto (Unsp spec) 12.8 % Low 19-41 [facility] Basic Metabolic Profile (BMP )on 06-24-2024 BUN/CRE 24.9 RATIO High 10-20 [facility] Comment on above: Order Comment: 109.1 Performed By: #### L 100.0100, L500.2500 ####[facility] [address] [place], [address] CA,Total 8.3 mg/dL Low 8.5-10.1 [facility] Comment on above: Order Comment: 109.1 Performed By: #### L 100.0100, L500.2500 ####[facility] [address] [place], [address] Chloride [Moles/Vol] 107 mmol/L Normal 98-107 [facility] Comment on above: Order Comment: 109.1 Performed By: #### L 100.0100, L500.2500 ####[facility] [address] [place], [address] CO2 [Moles/Vol] 24.0 mmol/L Normal 21.0-32.0 [facility] Comment on above: Order Comment: 109.1 Performed By: #### L 100.0100, L500.2500 ####[facility] [address] [place], [address] Creatinine [Mass/Vol] 0.60 mg/dL Low 0.70-1.30 [facility] Comment on above: Order Comment: 109.1 Result Comment: The validity of the calculated GFR GFRAA in patients over70 years has not been determined. Clinical correlation isessential. Performed By: #### L 100.0100, L500.2500 ####[facility] [address] [place], [address] EST GFR - AA 172 mL/min Normal >60 [facility] Comment on above: Order Comment: 109.1 Result Comment: Afri can Haitian GFR Calc Performed By: #### L 100.0100, L500.2500 ####[facility] [address] [place], [address] GAP 8 Normal 5-15 [facility] Comment on above: Order Comment: 109.1 Performed By: #### L 100.0100, L500.2500 ####[facility] [address] [place], [address] GFR/1.73 sq M.predicted among non-blacks MDRD (S/P/Bld) [Vol rate/Area] 142 mL/min/{1.73_m2} Normal >60 [facility] Comment on above: Order Comment: 109.1 Result Comment: Non- GFR Calc Performed By: #### L 100.0100, L500.2500 ####[facility] [address] [place], [address] Glucose [Mass/Vol] 101 mg/dL Normal 74-106 [facility] Comment on above: Order Comment: 109.1 Result Comment: Fast ing Glucose result from 100 to 125 mg/dLsuggests IMPAIRED HOMEOSTASIS per A.D.A. criteria. Performed By: #### L 100.0100, L500.2500 ####[facility] [address] [place], [address] Potassium [Moles/Vol] 4.1 mmol/L Normal 3.5-5.1 [facility] Comment on above: Order Comment: 109.1 Performed By: #### L 100.0100, L500.2500 ####[facility] [address] [place], [address] Sodium [Moles/Vol] 139 mmol/L Normal 136-145 [facility] Comment on above: Order Comment: 109.1 Performed By: #### L 100.0100, L500.2500 ####[facility] [address] [place], [address] Urea nitrogen [Mass/Vol] 15 mg/dL Normal 7-18 [facility] Comment on above: Order Comment: 109.1 Performed By: #### L 100.0100, L500.2500 ####[facility] [address] [place], [address] Basophil percentageOrdered B y: Renard Burgos on 06-24-2024 Basophils/100 WBC (Bld) 0.5 % 0-1 [facility] Blood urea nitrogen (BUN)/cr eatinine ratioOrdered By: Renard Burgos on 06-24-2024 Urea nitrogen/Creatinine [Mass ratio] 24.9 mg/mg High 10-20 [facility] CBC W/Diff, Automatedon - Absolute Lymph 1.65 X10 3/uL Normal 0.83-4.51 [facility] Comment on above: Order Comment: 109.1 Performed By: #### L 100.0100, L500.2500 ####[facility] [address] [place], [address] Absolute Neut 10.2 X10 3/uL High 2.0-7.7 [facility] Comment on above: Order Comment: 109.1 Performed By: #### L 100.0100, L500.2500 ####[facility] [address] [place], [address] Basophils/100 WBC (Bld) 0.5 % Normal 0-1 [facility] Comment on above: Order Comment: 109.1 Performed By: #### L 100.0100, L500.2500 ####[facility] [address] [place], [address] Eosinophils/100 WBC (Bld) 0.8 % Normal 0-5 [facility] Comment on above: Order Comment: 109.1 Performed By: #### L 100.0100, L500.2500 ####[facility] [address] [place], [address] Erythrocyte distribution width (RBC) [Ratio] 13.2 % Normal 11.6-14.6 [facility] Comment on above: Order Comment: 109.1 Performed By: #### L 100.0100, L500.2500 ####[facility] [address] [place], [address] Hematocrit (Bld) [Volume fraction] 41.8 % Normal 40-54 [facility] Comment on above: Order Comment: 109.1 Performed By: #### L 100.0100, L500.2500 ####[facility] [address] [place], [address] Hemoglobin (Bld) [Mass/Vol] 13.6 g/dL Normal 13.0-16.5 [facility] Comment on above: Order Comment: 109.1 Performed By: #### L 100.0100, L500.2500 ####[facility] [address] [place], [address] IG% 0.500 Normal 0.0-0.9 [facility] Comment on above: Order Comment: 109.1 Result Comment: IG% - Immature Granulocytes (promyelocytes, myelocytes andmetamyelocytes) > 1% indicates that a LEFT SHIFT is Present. Performed By: #### L 100.0100, L500.2500 ####[facility] [address] [place], [address] Lymphocytes/100 WBC (Bld) 12.8 % Low 19-41 [facility] Comment on above: Order Comment: 109.1 Performed By: #### L 100.0100, L500.2500 ####[facility] [address] [place], [address] MCH (RBC) [Entitic mass] 30.2 pg Normal 27.0-32.0 [facility] Comment on above: Order Comment: 109.1 Performed By: #### L 100.0100, L500.2500 ####[facility] [address] [place], [address] MCHC (RBC) [Mass/Vol] 32.5 g/dL Normal 32-36 [facility] Comment on above: Order Comment: 109.1 Performed By: #### L 100.0100, L500.2500 ####[facility] [address] [place], [address] MCV (RBC) [Entitic vol] 92.7 fL Normal 80-94 [facility] Comment on above: Order Comment: 109.1 Performed By: #### L 100.0100, L500.2500 ####[facility] [address] [place], [address] Monocytes/100 WBC (Bld) 6.4 % Normal 0-10 [facility] Comment on above: Order Comment: 109.1 Performed By: #### L 100.0100, L500.2500 ####[facility] [address] [place], [address] Neutrophils/100 WBC (Bld) 79.0 % High 47-70 [facility] Comment on above: Order Comment: 109.1 Performed By: #### L 100.0100, L500.2500 ####[facility] [address] [place], [address] Nucleated RBC (Bld) [#/Vol] 0 10*3/uL Normal 0-5 [facility] Comment on above: Order Comment: 109.1 Performed By: #### L 100.0100, L500.2500 ####[facility] [address] [place], [address] Platelet mean volume (Bld) [Entitic vol] 11.3 fL Normal 6.2-12.0 [facility] Comment on above: Order Comment: 109.1 Performed By: #### L 100.0100, L500.2500 ####[facility] [address] [place], [address] Platelets (Bld) [#/Vol] 171 10*3/uL Normal 150-450 [facility] Comment on above: Order Comment: 109.1 Performed By: #### L 100.0100, L500.2500 ####[facility] [address] [place], [address] RBC (Bld) [#/Vol] 4.51 10*6/uL Low 4.6-6.2 [facility] Comment on above: Order Comment: 109.1 Performed By: #### L 100.0100, L500.2500 ####[facility] [address] [place], [address] RDW SD 45.1 fl High 35.1-43.9 [facility] Comment on above: Order Comment: 109.1 Performed By: #### L 100.0100, L500.2500 ####[facility] [address] [place], [address] WBC (Bld) [#/Vol] 12.9 10*3/uL High 4.4-11.0 [facility] Comment on above: Order Comment: 109.1 Performed By: #### L 100.0100, L500.2500 ####[facility] [address] [place], [address] CT Chest WO contraston 06-24 Radiology Study observation (narrative) Estefania smith Carbon dioxide measurementOr dered By: Renard Burgos on 06-24-2024 CO2 [Moles/Vol] 24.0 mmol/L 21.0-32.0 [facility] Chloride measurementOrdered By: Renard Burgos on 06-24-2024 Chloride [Moles/Vol] 107 mmol/L 98-107 [facility] Eosinophil percentageOrdered By: Renard Burgos on 06-24-2024 Eosinophils/100 WBC (Bld) 0.8 % 0-5 [facility] Erythrocyte distribution wid th ratioOrdered By: Renard Burogs on 06-24-2024 Erythrocyte distribution width (RBC) [Ratio] 13.2 % 11.6-14.6 [facility] Erythrocyte distribution wid th standard deviationOrdered By: Renard Burgos on 06-24-2024 Erythrocyte distribution width (RBC) [Entitic vol] 45.1 fL High 35.1-43.9 [facility] Erythrocyte distribution width (RBC) [Ratio] 45.1 fl High 35.1-43.9 [facility] Estimated glomerular filtrat ion rate (GFR) AmericanOrdered By: Renard Burgos on 06-24-2024 Estimated GFR (MDRD) Amer 172 mL/min >60 [facility] Comment on above: GFR Calc Glomerular filtration rate ( GFR) estimationOrdered By: Renard Burgos on 06-24-2024 Estimated GFR (MDRD) Non-Af Amer 142 mL/min >60 [facility] Comment on above: Non- GFR Calc GFR/1.73 sq M.predicted among non-blacks MDRD (S/P/Bld) [Vol rate/Area] 142 mL/min/{1.73_m2} >60 [facility] Comment on above: Non- GFR Calc Glucose measurementOrdered B y: Renard Burgos on 06-24-2024 Glucose [Mass/Vol] 101 mg/dL 74-106 [facility] Comment on above: Fasting Glucose resu lt from 100 to 125 mg/dL suggests IMPAIRED HOMEOSTASIS per A.D.A. criteria. Hematocrit Auto (Bld) [Volum e fraction]Ordered By: Renard Burgos on 06-24-2024 Hematocrit (Bld) [Volume fraction] 41.8 % 40-54 [facility] Hemoglobin measurementOrdere d By: Renard Burgos on 06-24-2024 Hemoglobin (Bld) [Mass/Vol] 13.6 g/dL 13.0-16.5 [facility] Immature granulocytes/100 WB C Auto (Bld)Ordered By: Renard Burgos on 06-24-2024 Immature granulocytes/100 WBC (Bld) 0.500 % 0.0-0.9 [facility] Comment on above: IG% - Immature Granu locytes (promyelocytes, myelocytes and metamyelocytes) > 1% indicates that a LEFT SHIFT is Present. Lymphocytes Auto (Unsp spec) [#/Vol]Ordered By: Renard Burgos on 06-24-2024 Lymphocytes (Bld) [#/Vol] 1.65 10*3/uL 0.83-4.51 [facility] Lymphocytes/100 WBC Auto (Un sp spec)Ordered By: Renard Burgos on 06-24-2024 Lymphocytes/100 WBC (Bld) 12.8 % Low 19-41 [facility] MCV (mean corpuscular volume ) determinationOrdered By: Renard Burgos on 06-24-2024 MCV (RBC) [Entitic vol] 92.7 fL 80-94 [facility] Mean corpuscular hemoglobin (MCH) determinationOrdered By: Renard Burgos on 06-24-2024 MCH (RBC) [Entitic mass] 30.2 pg 27.0-32.0 [facility] Mean corpuscular hemoglobin concentration (MCHC) determinationOrdered By: Renard Burgos on 06-24-2024 MCHC (RBC) [Mass/Vol] 32.5 g/dL 32-36 [facility] Mean platelet volume determi nationOrdered By: Renard Burgos on 06-24-2024 Platelet mean volume (Bld) [Entitic vol] 11.3 fL 6.2-12.0 [facility] Monocyte percentageOrdered B y: Renard Burgos on 06-24-2024 Monocytes/100 WBC (Bld) 6.4 % 0-10 [facility] Neutrophil percentageOrdered By: Renard Burgos on 06-24-2024 Neutrophils/100 WBC (Bld) 79.0 % High 47-70 [facility] Nucleated red blood cell per centageOrdered By: Renard Burgos on 06-24-2024 Nucleated RBC/100 WBC (Bld) [Ratio] 0 % 0-5 [facility] Platelet countOrdered By: Garrick Bhatt on 06-24-2024 Platelets (Bld) [#/Vol] 171 10*3/uL 150-450 [facility] Potassium measurementOrdered By: Renard Burgos on 06-24-2024 Potassium [Moles/Vol] 4.1 mmol/L 3.5-5.1 [facility] RBC Auto (Bld) [#/Vol]Ordere d By: Renard Burgos on 06-24-2024 RBC (Bld) [#/Vol] 4.51 10*6/uL Low 4.6-6.2 [facility] Serum anion gap measurementO rdered By: Renard Burgos on 06-24-2024 Anion gap [Moles/Vol] 8 mmol/L 5-15 [facility] Serum or plasma calcium gordy urement (mass/volume)Ordered By: Renard Burgos on 06-24-2024 Calcium [Mass/Vol] 8.3 mg/dL Low 8.5-10.1 [facility] Serum or plasma creatinine m easurement (mass/volume)Ordered By: Renard Burgos on 06-24-2024 Creatinine [Mass/Vol] 0.60 mg/dL Low 0.70-1.30 [facility] Comment on above: The validity of the calculated GFR & GFRAA in patients over 70 years has not been determined. Clinical correlation is essential. Serum or plasma urea nitroge n measurement (mass/volume)Ordered By: Renard Burgos on 06-24-2024 Urea nitrogen [Mass/Vol] 15 mg/dL 7-18 [facility] Sodium levelOrdered By: Lamine Burgos on 06-24-2024 Sodium [Moles/Vol] 139 mmol/L 136-145 [facility] White blood cell (WBC) count Ordered By: Renard Burgos on 06-24-2024 WBC (Bld) [#/Vol] 12.9 10*3/uL High 4.4-11.0 [facility] Absolute lymphocyte countOrd ered By: Renard Burgos on 06-17-2024 Lymphocytes Auto (Unsp spec) [#/Vol] 2.00 10*3/uL 0.83-4.51 [facility] Absolute neutrophil countOrd ered By: Renard Burgos on 06-17-2024 Neutrophils (Bld) [#/Vol] 5.1 10*3/uL 2.0-7.7 [facility] Automated lymphocyte count a s percentage of total leukocytesOrdered By: Renard Burgos on 06-17-2024 Lymphocytes/100 WBC Auto (Unsp spec) 24.5 % 19-41 [facility] Basophil percentageOrdered B y: Renard Burgos on 06-17-2024 Basophils/100 WBC (Bld) 1.1 % High 0-1 [facility] CBC W/Diff, Automatedon 06-01 Absolute Lymph 2.00 X10 3/uL Normal 0.83-4.51 [facility] Comment on above: Order Comment: 109-1 Performed By: #### L 100.0100 ####[facility] [address] [place], [address] Absolute Neut 5.1 X10 3/uL Normal 2.0-7.7 [facility] Comment on above: Order Comment: 109-1 Performed By: #### L 100.0100 ####[facility] [address] [place], [address] Basophils/100 WBC (Bld) 1.1 % High 0-1 [facility] Comment on above: Order Comment: 109-1 Performed By: #### L 100.0100 ####[facility] [address] [place], [address] Eosinophils/100 WBC (Bld) 3.4 % Normal 0-5 [facility] Comment on above: Order Comment: 109-1 Performed By: #### L 100.0100 ####[facility] [address] [place], [address] Erythrocyte distribution width (RBC) [Ratio] 13.3 % Normal 11.6-14.6 [facility] Comment on above: Order Comment: 109-1 Performed By: #### L 100.0100 ####[facility] [address] [place], [address] Hematocrit (Bld) [Volume fraction] 39.3 % Low 40-54 [facility] Comment on above: Order Comment: 109-1 Performed By: #### L 100.0100 ####[facility] [address] [place], [address] Hemoglobin (Bld) [Mass/Vol] 12.8 g/dL Low 13.0-16.5 [facility] Comment on above: Order Comment: 109-1 Performed By: #### L 100.0100 ####[facility] [address] [place], [address] IG% 0.200 Normal 0.0-0.9 [facility] Comment on above: Order Comment: 109-1 Result Comment: IG% - Immature Granulocytes (promyelocytes, myelocytes andmetamyelocytes) > 1% indicates that a LEFT SHIFT is Present. Performed By: #### L 100.0100 ####[facility] [address] [place], [address] Lymphocytes/100 WBC (Bld) 24.5 % Normal 19-41 [facility] Comment on above: Order Comment: 109-1 Performed By: #### L 100.0100 ####[facility] [address] [place], [address] MCH (RBC) [Entitic mass] 29.6 pg Normal 27.0-32.0 [facility] Comment on above: Order Comment: 109-1 Performed By: #### L 100.0100 ####[facility] [address] [place], [address] MCHC (RBC) [Mass/Vol] 32.6 g/dL Normal 32-36 [facility] Comment on above: Order Comment: 109-1 Performed By: #### L 100.0100 ####[facility] [address] [place], [address] MCV (RBC) [Entitic vol] 90.8 fL Normal 80-94 [facility] Comment on above: Order Comment: 109-1 Performed By: #### L 100.0100 ####[facility] [address] [place], [address] Monocytes/100 WBC (Bld) 8.8 % Normal 0-10 [facility] Comment on above: Order Comment: 109-1 Performed By: #### L 100.0100 ####[facility] [address] [place], [address] Neutrophils/100 WBC (Bld) 62.0 % Normal 47-70 [facility] Comment on above: Order Comment: 109-1 Performed By: #### L 100.0100 ####[facility] [address] [place], [address] Nucleated RBC (Bld) [#/Vol] 0 10*3/uL Normal 0-5 [facility] Comment on above: Order Comment: 109-1 Performed By: #### L 100.0100 ####[facility] [address] [place], [address] Platelet mean volume (Bld) [Entitic vol] 10.9 fL Normal 6.2-12.0 [facility] Comment on above: Order Comment: 109-1 Performed By: #### L 100.0100 ####[facility] [address] [place], [address] Platelets (Bld) [#/Vol] 218 10*3/uL Normal 150-450 [facility] Comment on above: Order Comment: 109-1 Performed By: #### L 100.0100 ####[facility] [address] [place], [address] RBC (Bld) [#/Vol] 4.33 10*6/uL Low 4.6-6.2 [facility] Comment on above: Order Comment: 109-1 Performed By: #### L 100.0100 ####[facility] [address] [place], [address] RDW SD 44.0 fl High 35.1-43.9 [facility] Comment on above: Order Comment: 109-1 Performed By: #### L 100.0100 ####[facility] [address] [place], [address] WBC (Bld) [#/Vol] 8.2 10*3/uL Normal 4.4-11.0 [facility] Comment on above: Order Comment: 109-1 Performed By: #### L 100.0100 ####[facility] [address] [place], [address] Eosinophil percentageOrdered By: Renard Burgos on 06-17-2024 Eosinophils/100 WBC (Bld) 3.4 % 0-5 [facility] Erythrocyte distribution wid th ratioOrdered By: Renard Burgos on 06-17-2024 Erythrocyte distribution width (RBC) [Ratio] 13.3 % 11.6-14.6 [facility] Erythrocyte distribution wid th standard deviationOrdered By: Renard Burgos on 06-17-2024 Erythrocyte distribution width (RBC) [Entitic vol] 44.0 fL High 35.1-43.9 [facility] Erythrocyte distribution width (RBC) [Ratio] 44.0 fl High 35.1-43.9 [facility] Hematocrit Auto (Bld) [Volum e fraction]Ordered By: Renard Burgos on 06-17-2024 Hematocrit (Bld) [Volume fraction] 39.3 % Low 40-54 [facility] Hemoglobin measurementOrdere d By: Renard Burgos on 06-17-2024 Hemoglobin (Bld) [Mass/Vol] 12.8 g/dL Low 13.0-16.5 [facility] Immature granulocytes/100 WB C Auto (Bld)Ordered By: Renard Burgos on 06-17-2024 Immature granulocytes/100 WBC (Bld) 0.200 % 0.0-0.9 [facility] Comment on above: IG% - Immature Granu locytes (promyelocytes, myelocytes and metamyelocytes) > 1% indicates that a LEFT SHIFT is Present. Lymphocytes Auto (Unsp spec) [#/Vol]Ordered By: Renard Burgos on 06-17-2024 Lymphocytes (Bld) [#/Vol] 2.00 10*3/uL 0.83-4.51 [facility] Lymphocytes/100 WBC Auto (Un sp spec)Ordered By: Renard Burgos on 06-17-2024 Lymphocytes/100 WBC (Bld) 24.5 % 19-41 [facility] MCV (mean corpuscular volume ) determinationOrdered By: Renard Burgos on 06-17-2024 MCV (RBC) [Entitic vol] 90.8 fL 80-94 [facility] Mean corpuscular hemoglobin (MCH) determinationOrdered By: Renard Burgos on 06-17-2024 MCH (RBC) [Entitic mass] 29.6 pg 27.0-32.0 [facility] Mean corpuscular hemoglobin concentration (MCHC) determinationOrdered By: Renard Burgos on 06-17-2024 MCHC (RBC) [Mass/Vol] 32.6 g/dL 32-36 [facility] Mean platelet volume determi nationOrdered By: Renard Burgos on 06-17-2024 Platelet mean volume (Bld) [Entitic vol] 10.9 fL 6.2-12.0 [facility] Monocyte percentageOrdered B y: Renard Burgos on 06-17-2024 Monocytes/100 WBC (Bld) 8.8 % 0-10 [facility] Neutrophil percentageOrdered By: Renard Burgos on 06-17-2024 Neutrophils/100 WBC (Bld) 62.0 % 47-70 [facility] Nucleated red blood cell per centageOrdered By: Renard Burgos on 06-17-2024 Nucleated RBC/100 WBC (Bld) [Ratio] 0 % 0-5 [facility] Platelet countOrdered By: Garrick Bhatt on 06-17-2024 Platelets (Bld) [#/Vol] 218 10*3/uL 150-450 [facility] RBC Auto (Bld) [#/Vol]Ordere d By: Renard Burgos on 06-17-2024 RBC (Bld) [#/Vol] 4.33 10*6/uL Low 4.6-6.2 [facility] White blood cell (WBC) count Ordered By: Renard Burgos on 06-17-2024 WBC (Bld) [#/Vol] 8.2 10*3/uL 4.4-11.0 [facility] Absolute lymphocyte countOrd ered By: Renard Burgos on 06-10-2024 Lymphocytes Auto (Unsp spec) [#/Vol] 2.38 10*3/uL 0.83-4.51 [facility] Absolute neutrophil countOrd ered By: Renard Burgos on 06-10-2024 Neutrophils (Bld) [#/Vol] 5.3 10*3/uL 2.0-7.7 [facility] Automated lymphocyte count a s percentage of total leukocytesOrdered By: Renard Burgos on 06-10-2024 Lymphocytes/100 WBC Auto (Unsp spec) 27.5 % 19-41 [facility] Basophil percentageOrdered B y: Renard Burgos on 06-10-2024 Basophils/100 WBC (Bld) 0.7 % 0-1 [facility] CBC W/Diff, Automatedon 06-01-2024 Absolute Lymph 2.38 X10 3/uL Normal 0.83-4.51 [facility] Comment on above: Order Comment: 109.1 Performed By: #### L 100.0100 ####[facility] [address] [place], [address] Absolute Neut 5.3 X10 3/uL Normal 2.0-7.7 [facility] Comment on above: Order Comment: 109.1 Performed By: #### L 100.0100 ####[facility] [address] [place], [address] Basophils/100 WBC (Bld) 0.7 % Normal 0-1 [facility] Comment on above: Order Comment: 109.1 Performed By: #### L 100.0100 ####[facility] [address] [place], [address] Eosinophils/100 WBC (Bld) 0.7 % Normal 0-5 [facility] Comment on above: Order Comment: 109.1 Performed By: #### L 100.0100 ####[facility] [address] [place], [address] Erythrocyte distribution width (RBC) [Ratio] 13.1 % Normal 11.6-14.6 [facility] Comment on above: Order Comment: 109.1 Performed By: #### L 100.0100 ####[facility] [address] [place], [address] Hematocrit (Bld) [Volume fraction] 41.1 % Normal 40-54 [facility] Comment on above: Order Comment: 109.1 Performed By: #### L 100.0100 ####[facility] [address] [place], [address] Hemoglobin (Bld) [Mass/Vol] 13.5 g/dL Normal 13.0-16.5 [facility] Comment on above: Order Comment: 109.1 Performed By: #### L 100.0100 ####[facility] [address] [place], [address] IG% 0.500 Normal 0.0-0.9 [facility] Comment on above: Order Comment: 109.1 Result Comment: IG% - Immature Granulocytes (promyelocytes, myelocytes andmetamyelocytes) > 1% indicates that a LEFT SHIFT is Present. Performed By: #### L 100.0100 ####[facility] [address] [place], [address] Lymphocytes/100 WBC (Bld) 27.5 % Normal 19-41 [facility] Comment on above: Order Comment: 109.1 Performed By: #### L 100.0100 ####[facility] [address] [place], [address] MCH (RBC) [Entitic mass] 30.1 pg Normal 27.0-32.0 [facility] Comment on above: Order Comment: 109.1 Performed By: #### L 100.0100 ####[facility] [address] [place], [address] MCHC (RBC) [Mass/Vol] 32.8 g/dL Normal 32-36 [facility] Comment on above: Order Comment: 109.1 Performed By: #### L 100.0100 ####[facility] [address] [place], [address] MCV (RBC) [Entitic vol] 91.7 fL Normal 80-94 [facility] Comment on above: Order Comment: 109.1 Performed By: #### L 100.0100 ####[facility] [address] [place], [address] Monocytes/100 WBC (Bld) 9.6 % Normal 0-10 [facility] Comment on above: Order Comment: 109.1 Performed By: #### L 100.0100 ####[facility] [address] [place], [address] Neutrophils/100 WBC (Bld) 61.0 % Normal 47-70 [facility] Comment on above: Order Comment: 109.1 Performed By: #### L 100.0100 ####[facility] [address] [place], [address] Nucleated RBC (Bld) [#/Vol] 0 10*3/uL Normal 0-5 [facility] Comment on above: Order Comment: 109.1 Performed By: #### L 100.0100 ####[facility] [address] [place], [address] Platelet mean volume (Bld) [Entitic vol] 11.0 fL Normal 6.2-12.0 [facility] Comment on above: Order Comment: 109.1 Performed By: #### L 100.0100 ####[facility] [address] [place], [address] Platelets (Bld) [#/Vol] 261 10*3/uL Normal 150-450 [facility] Comment on above: Order Comment: 109.1 Performed By: #### L 100.0100 ####[facility] [address] [place], [address] RBC (Bld) [#/Vol] 4.48 10*6/uL Low 4.6-6.2 [facility] Comment on above: Order Comment: 109.1 Performed By: #### L 100.0100 ####[facility] [address] [place], [address] RDW SD 43.2 fl Normal 35.1-43.9 [facility] Comment on above: Order Comment: 109.1 Performed By: #### L 100.0100 ####[facility] [address] [place], [address] WBC (Bld) [#/Vol] 8.6 10*3/uL Normal 4.4-11.0 [facility] Comment on above: Order Comment: 109.1 Performed By: #### L 100.0100 ####[facility] [address] [place], [address] Eosinophil percentageOrdered By: Renard Burgos on 06-10-2024 Eosinophils/100 WBC (Bld) 0.7 % 0-5 [facility] Erythrocyte distribution wid th ratioOrdered By: Renard Burgos on 06-10-2024 Erythrocyte distribution width (RBC) [Ratio] 13.1 % 11.6-14.6 [facility] Erythrocyte distribution wid th standard deviationOrdered By: Renard Burgos on 06-10-2024 Erythrocyte distribution width (RBC) [Entitic vol] 43.2 fL 35.1-43.9 [facility] Erythrocyte distribution width (RBC) [Ratio] 43.2 fl 35.1-43.9 [facility] Hematocrit Auto (Bld) [Volum e fraction]Ordered By: Renard Burgos on 06-10-2024 Hematocrit (Bld) [Volume fraction] 41.1 % 40-54 [facility] Hemoglobin measurementOrdere d By: Renard Burgos on 06-10-2024 Hemoglobin (Bld) [Mass/Vol] 13.5 g/dL 13.0-16.5 [facility] Immature granulocytes/100 WB C Auto (Bld)Ordered By: Renard Burgos on 06-10-2024 Immature granulocytes/100 WBC (Bld) 0.500 % 0.0-0.9 [facility] Comment on above: IG% - Immature Granu locytes (promyelocytes, myelocytes and metamyelocytes) > 1% indicates that a LEFT SHIFT is Present. Lymphocytes Auto (Unsp spec) [#/Vol]Ordered By: Renard Burgos on 06-10-2024 Lymphocytes (Bld) [#/Vol] 2.38 10*3/uL 0.83-4.51 [facility] Lymphocytes/100 WBC Auto (Un sp spec)Ordered By: Renard Burgos on 06-10-2024 Lymphocytes/100 WBC (Bld) 27.5 % 19-41 [facility] MCV (mean corpuscular volume ) determinationOrdered By: Renard Burgos on 06-10-2024 MCV (RBC) [Entitic vol] 91.7 fL 80-94 [facility] Mean corpuscular hemoglobin (MCH) determinationOrdered By: Renard Burgos on 06-10-2024 MCH (RBC) [Entitic mass] 30.1 pg 27.0-32.0 [facility] Mean corpuscular hemoglobin concentration (MCHC) determinationOrdered By: Renard Burgos on 06-10-2024 MCHC (RBC) [Mass/Vol] 32.8 g/dL 32-36 [facility] Mean platelet volume determi nationOrdered By: Renard Burgos on 06-10-2024 Platelet mean volume (Bld) [Entitic vol] 11.0 fL 6.2-12.0 [facility] Monocyte percentageOrdered B y: Renard Burgos on 06-10-2024 Monocytes/100 WBC (Bld) 9.6 % 0-10 [facility] Neutrophil percentageOrdered By: Renard Burgos on 06-10-2024 Neutrophils/100 WBC (Bld) 61.0 % 47-70 [facility] Nucleated red blood cell per centageOrdered By: Renard Burgos on 06-10-2024 Nucleated RBC/100 WBC (Bld) [Ratio] 0 % 0-5 [facility] Platelet countOrdered By: Garrick Bhatt on 06-10-2024 Platelets (Bld) [#/Vol] 261 10*3/uL 150-450 [facility] RBC Auto (Bld) [#/Vol]Ordere d By: Renard Burgos on 06-10-2024 RBC (Bld) [#/Vol] 4.48 10*6/uL Low 4.6-6.2 [facility] Urine Cultureon 06-10-2024 URC Normal [facility] Comment on above: Performed By: #### M 100.2200, L400.0001 ####[facility] [address] [place], [place], [id number]) White blood cell (WBC) count Ordered By: Renard Burgos on 06-10-2024 WBC (Bld) [#/Vol] 8.6 10*3/uL 4.4-11.0 [facility] Bilirubin Test strip Ql (U)O rdered By: Renard Burgos on 06-07-2024 Bilirubin Ql (U) Negative Negative [facility] CBC-Complete Blood Cnt No Di ffon 06-07-2024 Erythrocyte distribution width (RBC) [Ratio] 13.0 % Normal 11.6-14.6 [facility] Comment on above: Order Comment: 109-1 Performed By: #### L 100.0500 ####[facility] [address] [place], [address] Hematocrit (Bld) [Volume fraction] 39.3 % Low 40-54 [facility] Comment on above: Order Comment: 109-1 Performed By: #### L 100.0500 ####[facility] [address] [place], [address] Hemoglobin (Bld) [Mass/Vol] 13.0 g/dL Normal 13.0-16.5 [facility] Comment on above: Order Comment: 109-1 Performed By: #### L 100.0500 ####[facility] [address] [place], [address] MCH (RBC) [Entitic mass] 30.2 pg Normal 27.0-32.0 [facility] Comment on above: Order Comment: 109-1 Performed By: #### L 100.0500 ####[facility] [address] [place], [address] MCHC (RBC) [Mass/Vol] 33.1 g/dL Normal 32-36 [facility] Comment on above: Order Comment: 109-1 Performed By: #### L 100.0500 ####[facility] [address] [place], [address] MCV (RBC) [Entitic vol] 91.2 fL Normal 80-94 [facility] Comment on above: Order Comment: 109-1 Performed By: #### L 100.0500 ####[facility] [address] [place], [address] Platelet mean volume (Bld) [Entitic vol] 10.8 fL Normal 6.2-12.0 [facility] Comment on above: Order Comment: 109-1 Performed By: #### L 100.0500 ####[facility] [address] [place], [address] Platelets (Bld) [#/Vol] 251 10*3/uL Normal 150-450 [facility] Comment on above: Order Comment: 109-1 Performed By: #### L 100.0500 ####[facility] [address] [place], [address] RBC (Bld) [#/Vol] 4.31 10*6/uL Low 4.6-6.2 [facility] Comment on above: Order Comment: 109-1 Performed By: #### L 100.0500 ####[facility] [address] [place], [address] RDW SD 43.7 fl Normal 35.1-43.9 [facility] Comment on above: Order Comment: 109-1 Performed By: #### L 100.0500 ####[facility] [address] [place], [address] WBC (Bld) [#/Vol] 9.9 10*3/uL Normal 4.4-11.0 [facility] Comment on above: Order Comment: 109-1 Performed By: #### L 100.0500 ####[facility] [address] [place], [address] Epithelial cells.squamous LM Ql (Urine sed)Ordered By: Renard Burgos on 06-07-2024 Epithelial cells.squamous LM.HPF (Urine sed) [#/Area] 0 /[HPF] 0-5 [facility] Erythrocyte distribution wid th ratioOrdered By: Renard Burgos on 06-07-2024 Erythrocyte distribution width (RBC) [Ratio] 13.0 % 11.6-14.6 [facility] Erythrocyte distribution wid th standard deviationOrdered By: Renard Burgos on 06-07-2024 Erythrocyte distribution width (RBC) [Entitic vol] 43.7 fL 35.1-43.9 [facility] Erythrocyte distribution width (RBC) [Ratio] 43.7 fl 35.1-43.9 [facility] Glucose Ql (U)Ordered By: Garrick Bhatt on 06-07-2024 Urine Glucose (UA) Normal mg/dl Normal [facility] Hematocrit Auto (Bld) [Volum e fraction]Ordered By: Renard Burgos on 06-07-2024 Hematocrit (Bld) [Volume fraction] 39.3 % Low 40-54 [facility] Hemoglobin measurementOrdere d By: Renard Burgos on 06-07-2024 Hemoglobin (Bld) [Mass/Vol] 13.0 g/dL 13.0-16.5 [facility] Ketones Test strip Ql (U)Ord ered By: Renard Burgos on 06-07-2024 Ketones Ql (U) Negative Negative [facility] MCV (mean corpuscular volume ) determinationOrdered By: Renadr Burgos on 06-07-2024 MCV (RBC) [Entitic vol] 91.2 fL 80-94 [facility] Mean corpuscular hemoglobin (MCH) determinationOrdered By: Renard Burgos on 06-07-2024 MCH (RBC) [Entitic mass] 30.2 pg 27.0-32.0 [facility] Mean corpuscular hemoglobin concentration (MCHC) determinationOrdered By: Renard Burgos on 06-07-2024 MCHC (RBC) [Mass/Vol] 33.1 g/dL 32-36 [facility] Mean platelet volume determi nationOrdered By: Renard Burgos on 06-07-2024 Platelet mean volume (Bld) [Entitic vol] 10.8 fL 6.2-12.0 [facility] Microscopic analysis of urin e for red blood cells (RBC)Ordered By: Renard Burgos on 06-07-2024 Microscopic analysis of urine for red blood cells (RBC) 0 SEEN /hpf 0-5 [facility] Urine RBC 0 SEEN /hpf 0-5 [facility] Mucus LM Ql (Urine sed)Order ed By: Renard Burgos on 06-07-2024 Mucus Ql (Urine sed) 0 SEEN /hpf [facility] Nitrite Test strip Ql (U)Ord ered By: Renard Burgos on 06-07-2024 Nitrite Ql (U) Negative Negative [facility] [facility] Platelet countOrdered By: Garrick Bhatt on 06-07-2024 Platelets (Bld) [#/Vol] 251 10*3/uL 150-450 [facility] Protein Test strip Ql (U)Ord ered By: Renard Burgos on 06-07-2024 Protein Ql (U) 15 mg/dl High Negative [facility] RBC Auto (Bld) [#/Vol]Ordere d By: Renard Burgos on 06-07-2024 RBC (Bld) [#/Vol] 4.31 10*6/uL Low 4.6-6.2 [facility] Squamous epithelial cells de tection in urine sediment by light microscopyOrdered By: Renard Burgos on 06-07-2024 Epithelial cells.squamous LM Ql (Urine sed) 0-5 SEEN /hpf 0-5 [facility] Urinalysis, Completeon 06-07 Mucus Ql (Urine sed) 0 SEEN Normal [facility] [place] Comment on above: Order Comment: CLEAN CATCH Performed By: #### M 100.2200, L400.0001 ####[facility] [address] [place], [address] Urine blood detectionOrdered By: Renard Burgos on 06-07-2024 Urine Occult Blood Negative Negative [facility] Urine clarityOrdered By: Lyubov Burgos on 06-07-2024 Clarity (U) Clear Clear [facility] Urine color determinationOrd ered By: Renard Burgos on 06-07-2024 Color (U) Yellow Yellow [facility] Urine cultureOrdered By: Lyubov Burgos on 06-07-2024 Bacteria identified Cx Nom (U) Pseudomonas aeruginosa Abnormal [facility] Bacteria identified Cx Nom (U) Pseudomonas aeruginosa Abnormal [facility] Urine glucose detectionOrder ed By: Renard Burgos on 06-07-2024 Glucose Ql (U) Normal mg/dl Normal [facility] Urine leukocyte esterase det ection by dipstickOrdered By: Renard Burgos on 06-07-2024 Leukocyte esterase Test strip Ql (U) Negative Negative [facility] Urine pHOrdered By: Renard ocampo on 06-07-2024 pH (U) 7.0 [pH] 5.0 - 8.0 [facility] Urine sediment bacteria coun t by microscopy (number/high power field)Ordered By: Renard Burgos on 06-07-2024 Bacteria LM.HPF (Urine sed) [#/Area] 2 /[HPF] None Seen [facility] Urine sediment yeast count b y microscopy (number/high powered field)Ordered By: Renard Burgos on 06-07-2024 Yeast LM.HPF (Urine sed) [#/Area] 1 /[HPF] None Seen [facility] Urine specific gravity measu rementOrdered By: Renard Burgos on 06-07-2024 Specific gravity (U) [Rel density] 1.010 1.002-1.030 [facility] Urine urobilinogen measureme ntOrdered By: Renard Burgos on 06-07-2024 Urobilinogen Ql (U) 1 mg/dl High Normal [facility] Urobilinogen Ql (U)Ordered B y: Renard Burgos on 06-07-2024 Urobilinogen (U) [Mass/Vol] 1 mg/dL High Normal [facility] White blood cell (WBC) count Ordered By: Renard Burgos on 06-07-2024 WBC (Bld) [#/Vol] 9.9 10*3/uL 4.4-11.0 [facility] White blood cell countOrdere d By: Renard Burgos on 06-07-2024 Urine WBC 0-5 SEEN /hpf 0-5 [facility] White blood cell count 0-5 SEEN /hpf 0-5 [facility] Yeast LM.HPF (Urine sed) [#/ Area]Ordered By: Renard Burgos on 06-07-2024 Urine Yeast 1+ /hpf None Seen [facility] Absolute lymphocyte countOrd ered By: Renard Burgos on 06-03-2024 Lymphocytes Auto (Unsp spec) [#/Vol] 1.94 10*3/uL 0.83-4.51 [facility] Absolute neutrophil countOrd ered By: Renard Burgos on 06-03-2024 Neutrophils (Bld) [#/Vol] 9.5 10*3/uL High 2.0-7.7 [facility] Automated lymphocyte count a s percentage of total leukocytesOrdered By: Renard Burgos on 06-03-2024 Lymphocytes/100 WBC Auto (Unsp spec) 15.7 % Low 19-41 [facility] Basophil percentageOrdered B y: Renard Burgos on 06-03-2024 Basophils/100 WBC (Bld) 0.5 % 0-1 [facility] CBC W/Diff, Automatedon Absolute Lymph 1.94 X10 3/uL Normal 0.83-4.51 [facility] Comment on above: Order Comment: 109-1 Performed By: #### L 100.0100 ####[facility] [address] [place], [place], [address] Absolute Neut 9.5 X10 3/uL High 2.0-7.7 [facility] Comment on above: Order Comment: 109-1 Performed By: #### L 100.0100 ####[facility] [address] [place], [address] Basophils/100 WBC (Bld) 0.5 % Normal 0-1 [facility] Comment on above: Order Comment: 109-1 Performed By: #### L 100.0100 ####[facility] [address] [place], [address] Eosinophils/100 WBC (Bld) 0.3 % Normal 0-5 [facility] Comment on above: Order Comment: 109-1 Performed By: #### L 100.0100 ####[facility] [address] [place], [address] Erythrocyte distribution width (RBC) [Ratio] 13.0 % Normal 11.6-14.6 [facility] Comment on above: Order Comment: 109-1 Performed By: #### L 100.0100 ####[facility] [address] [place], [address] Hematocrit (Bld) [Volume fraction] 40.1 % Normal 40-54 [facility] Comment on above: Order Comment: 109-1 Performed By: #### L 100.0100 ####[facility] [address] [place], [address] Hemoglobin (Bld) [Mass/Vol] 13.2 g/dL Normal 13.0-16.5 [facility] Comment on above: Order Comment: 109-1 Performed By: #### L 100.0100 ####[facility] [address] [place], [address] IG% 0.400 Normal 0.0-0.9 [facility] Comment on above: Order Comment: 109-1 Result Comment: IG% - Immature Granulocytes (promyelocytes, myelocytes andmetamyelocytes) > 1% indicates that a LEFT SHIFT is Present. Performed By: #### L 100.0100 ####[facility] [address] [place], [address] Lymphocytes/100 WBC (Bld) 15.7 % Low 19-41 [facility] Comment on above: Order Comment: 109-1 Performed By: #### L 100.0100 ####[facility] [address] [place], [address] MCH (RBC) [Entitic mass] 30.1 pg Normal 27.0-32.0 [facility] Comment on above: Order Comment: 109-1 Performed By: #### L 100.0100 ####[facility] [address] [place], [address] MCHC (RBC) [Mass/Vol] 32.9 g/dL Normal 32-36 [facility] Comment on above: Order Comment: 109-1 Performed By: #### L 100.0100 ####[facility] [address] [place], [address] MCV (RBC) [Entitic vol] 91.3 fL Normal 80-94 [facility] Comment on above: Order Comment: 109-1 Performed By: #### L 100.0100 ####[facility] [address] [place], [address] Monocytes/100 WBC (Bld) 6.6 % Normal 0-10 [facility] Comment on above: Order Comment: 109-1 Performed By: #### L 100.0100 ####[facility] [address] [place], [address] Neutrophils/100 WBC (Bld) 76.5 % High 47-70 [facility] Comment on above: Order Comment: 109-1 Performed By: #### L 100.0100 ####[facility] [address] [place], [address] Nucleated RBC (Bld) [#/Vol] 0 10*3/uL Normal 0-5 [facility] Comment on above: Order Comment: 109-1 Performed By: #### L 100.0100 ####[facility] [address] [place], [address] Platelet mean volume (Bld) [Entitic vol] 11.1 fL Normal 6.2-12.0 [facility] Comment on above: Order Comment: 109-1 Performed By: #### L 100.0100 ####[facility] [address] [place], [address] Platelets (Bld) [#/Vol] 249 10*3/uL Normal 150-450 [facility] Comment on above: Order Comment: 109-1 Performed By: #### L 100.0100 ####[facility] [address] [place], [address] RBC (Bld) [#/Vol] 4.39 10*6/uL Low 4.6-6.2 [facility] Comment on above: Order Comment: 109-1 Performed By: #### L 100.0100 ####[facility] [address] [place], [address] RDW SD 42.8 fl Normal 35.1-43.9 [facility] Comment on above: Order Comment: 109-1 Performed By: #### L 100.0100 ####[facility] [address] [place], [address] WBC (Bld) [#/Vol] 12.4 10*3/uL High 4.4-11.0 [facility] Comment on above: Order Comment: 109-1 Performed By: #### L 100.0100 ####[facility] [address] [place], [address] Eosinophil percentageOrdered By: Renard Burgos on 06-03-2024 Eosinophils/100 WBC (Bld) 0.3 % 0-5 [facility] Erythrocyte distribution wid th ratioOrdered By: Renard Burgos on 06-03-2024 Erythrocyte distribution width (RBC) [Ratio] 13.0 % 11.6-14.6 [facility] Erythrocyte distribution wid th standard deviationOrdered By: Renard Burgos on 06-03-2024 Erythrocyte distribution width (RBC) [Entitic vol] 42.8 fL 35.1-43.9 [facility] Erythrocyte distribution width (RBC) [Ratio] 42.8 fl 35.1-43.9 [facility] Hematocrit Auto (Bld) [Volum e fraction]Ordered By: Renard Burgos on 06-03-2024 Hematocrit (Bld) [Volume fraction] 40.1 % 40-54 [facility] Hemoglobin measurementOrdere d By: Renard Burgos on 06-03-2024 Hemoglobin (Bld) [Mass/Vol] 13.2 g/dL 13.0-16.5 [facility] Immature granulocytes/100 WB C Auto (Bld)Ordered By: Renard Burgos on 06-03-2024 Immature granulocytes/100 WBC (Bld) 0.400 % 0.0-0.9 [facility] Comment on above: IG% - Immature Granu locytes (promyelocytes, myelocytes and metamyelocytes) > 1% indicates that a LEFT SHIFT is Present. Lymphocytes Auto (Unsp spec) [#/Vol]Ordered By: Renard Burgos on 06-03-2024 Lymphocytes (Bld) [#/Vol] 1.94 10*3/uL 0.83-4.51 [facility] Lymphocytes/100 WBC Auto (Un sp spec)Ordered By: Renard Burgos on 06-03-2024 Lymphocytes/100 WBC (Bld) 15.7 % Low 19-41 [facility] MCV (mean corpuscular volume ) determinationOrdered By: Renard Burgos on 06-03-2024 MCV (RBC) [Entitic vol] 91.3 fL 80-94 [facility] Mean corpuscular hemoglobin (MCH) determinationOrdered By: Renard Burgos on 06-03-2024 MCH (RBC) [Entitic mass] 30.1 pg 27.0-32.0 [facility] Mean corpuscular hemoglobin concentration (MCHC) determinationOrdered By: Renard Burgos on 06-03-2024 MCHC (RBC) [Mass/Vol] 32.9 g/dL 32-36 [facility] Mean platelet volume determi nationOrdered By: Renard Burgos on 06-03-2024 Platelet mean volume (Bld) [Entitic vol] 11.1 fL 6.2-12.0 [facility] Monocyte percentageOrdered B y: Renard Burgos on 06-03-2024 Monocytes/100 WBC (Bld) 6.6 % 0-10 [facility] Neutrophil percentageOrdered By: Renard Burgos on 06-03-2024 Neutrophils/100 WBC (Bld) 76.5 % High 47-70 [facility] Nucleated red blood cell per centageOrdered By: Renard Burgos on 06-03-2024 Nucleated RBC/100 WBC (Bld) [Ratio] 0 % 0-5 [facility] Platelet countOrdered By: Garrick Bhatt on 06-03-2024 Platelets (Bld) [#/Vol] 249 10*3/uL 150-450 [facility] RBC Auto (Bld) [#/Vol]Ordere d By: Renard Burgos on 06-03-2024 RBC (Bld) [#/Vol] 4.39 10*6/uL Low 4.6-6.2 [facility] White blood cell (WBC) count Ordered By: Renard Burgos on 06-03-2024 WBC (Bld) [#/Vol] 12.4 10*3/uL High 4.4-11.0 [facility] Absolute lymphocyte countOrd ered By: Renard Burgos on 05-27-2024 Lymphocytes Auto (Unsp spec) [#/Vol] 1.81 10*3/uL 0.83-4.51 [facility] Absolute neutrophil countOrd ered By: Renard Burgos on 05-27-2024 Neutrophils (Bld) [#/Vol] 5.0 10*3/uL 2.0-7.7 [facility] Automated lymphocyte count a s percentage of total leukocytesOrdered By: Renard Burgos on 05-27-2024 Lymphocytes/100 WBC Auto (Unsp spec) 24.4 % 19-41 [facility] Basophil percentageOrdered B y: Renard Burgos on 05-27-2024 Basophils/100 WBC (Bld) 0.5 % 0-1 [facility] CBC W/Diff, Automatedon 01-2 Absolute Lymph 1.81 X10 3/uL Normal 0.83-4.51 [facility] Comment on above: Order Comment: 109.1 Performed By: #### L 100.0100 ####[facility] [address] [place], [address] Absolute Neut 5.0 X10 3/uL Normal 2.0-7.7 [facility] Comment on above: Order Comment: 109.1 Performed By: #### L 100.0100 ####[facility] [address] [place], [address] Basophils/100 WBC (Bld) 0.5 % Normal 0-1 [facility] Comment on above: Order Comment: 109.1 Performed By: #### L 100.0100 ####[facility] [address] [place], [address] Eosinophils/100 WBC (Bld) 0.5 % Normal 0-5 [facility] Comment on above: Order Comment: 109.1 Performed By: #### L 100.0100 ####[facility] [address] [place], [address] Erythrocyte distribution width (RBC) [Ratio] 12.8 % Normal 11.6-14.6 [facility] Comment on above: Order Comment: 109.1 Performed By: #### L 100.0100 ####[facility] [address] [place], [address] Hematocrit (Bld) [Volume fraction] 39.8 % Low 40-54 [facility] Comment on above: Order Comment: 109.1 Performed By: #### L 100.0100 ####[facility] [address] [place], [address] Hemoglobin (Bld) [Mass/Vol] 13.2 g/dL Normal 13.0-16.5 [facility] Comment on above: Order Comment: 109.1 Performed By: #### L 100.0100 ####[facility] [address] [place], [address] IG% 0.400 Normal 0.0-0.9 [facility] Comment on above: Order Comment: 109.1 Result Comment: IG% - Immature Granulocytes (promyelocytes, myelocytes andmetamyelocytes) > 1% indicates that a LEFT SHIFT is Present. Performed By: #### L 100.0100 ####[facility] [address] [place], [address] Lymphocytes/100 WBC (Bld) 24.4 % Normal 19-41 [facility] Comment on above: Order Comment: 109.1 Performed By: #### L 100.0100 ####[facility] [address] [place], [address] MCH (RBC) [Entitic mass] 30.2 pg Normal 27.0-32.0 [facility] Comment on above: Order Comment: 109.1 Performed By: #### L 100.0100 ####[facility] [address] [place], [address] MCHC (RBC) [Mass/Vol] 33.2 g/dL Normal 32-36 [facility] Comment on above: Order Comment: 109.1 Performed By: #### L 100.0100 ####[facility] [address] [place], [address] MCV (RBC) [Entitic vol] 91.1 fL Normal 80-94 [facility] Comment on above: Order Comment: 109.1 Performed By: #### L 100.0100 ####[facility] [address] [place], [address] Monocytes/100 WBC (Bld) 7.0 % Normal 0-10 [facility] Comment on above: Order Comment: 109.1 Performed By: #### L 100.0100 ####[facility] [address] [place], [address] Neutrophils/100 WBC (Bld) 67.2 % Normal 47-70 [facility] Comment on above: Order Comment: 109.1 Performed By: #### L 100.0100 ####[facility] [address] [place], [address] Nucleated RBC (Bld) [#/Vol] 0 10*3/uL Normal 0-5 [facility] Comment on above: Order Comment: 109.1 Performed By: #### L 100.0100 ####[facility] [address] [place], [address] Platelet mean volume (Bld) [Entitic vol] 10.3 fL Normal 6.2-12.0 [facility] Comment on above: Order Comment: 109.1 Performed By: #### L 100.0100 ####[facility] [address] [place], [address] Platelets (Bld) [#/Vol] 239 10*3/uL Normal 150-450 [facility] Comment on above: Order Comment: 109.1 Performed By: #### L 100.0100 ####[facility] [address] [place], [address] RBC (Bld) [#/Vol] 4.37 10*6/uL Low 4.6-6.2 [facility] Comment on above: Order Comment: 109.1 Performed By: #### L 100.0100 ####[facility] [address] [place], [address] RDW SD 42.5 fl Normal 35.1-43.9 [facility] Comment on above: Order Comment: 109.1 Performed By: #### L 100.0100 ####[facility] [address] [place], [address] WBC (Bld) [#/Vol] 7.4 10*3/uL Normal 4.4-11.0 [facility] Comment on above: Order Comment: 109.1 Performed By: #### L 100.0100 ####[facility] [address] [place], [address] Eosinophil percentageOrdered By: Renard Burgos on 05-27-2024 Eosinophils/100 WBC (Bld) 0.5 % 0-5 [facility] Erythrocyte distribution wid th ratioOrdered By: Renard Burgos on 05-27-2024 Erythrocyte distribution width (RBC) [Ratio] 12.8 % 11.6-14.6 [facility] Erythrocyte distribution wid th standard deviationOrdered By: Renard Burgos on 05-27-2024 Erythrocyte distribution width (RBC) [Entitic vol] 42.5 fL 35.1-43.9 [facility] Erythrocyte distribution width (RBC) [Ratio] 42.5 fl 35.1-43.9 [facility] Hematocrit Auto (Bld) [Volum e fraction]Ordered By: Renard Burgos on 05-27-2024 Hematocrit (Bld) [Volume fraction] 39.8 % Low 40-54 [facility] Hemoglobin measurementOrdere d By: Renard Burgos on 05-27-2024 Hemoglobin (Bld) [Mass/Vol] 13.2 g/dL 13.0-16.5 [facility] Immature granulocytes/100 WB C Auto (Bld)Ordered By: Renard Burgos on 05-27-2024 Immature granulocytes/100 WBC (Bld) 0.400 % 0.0-0.9 [facility] Comment on above: IG% - Immature Granu locytes (promyelocytes, myelocytes and metamyelocytes) > 1% indicates that a LEFT SHIFT is Present. Lymphocytes Auto (Unsp spec) [#/Vol]Ordered By: Renard Burgos on 05-27-2024 Lymphocytes (Bld) [#/Vol] 1.81 10*3/uL 0.83-4.51 [facility] Lymphocytes/100 WBC Auto (Un sp spec)Ordered By: Renard Burgos on 05-27-2024 Lymphocytes/100 WBC (Bld) 24.4 % 19-41 [facility] MCV (mean corpuscular volume ) determinationOrdered By: Renard Burgos on 05-27-2024 MCV (RBC) [Entitic vol] 91.1 fL 80-94 [facility] Mean corpuscular hemoglobin (MCH) determinationOrdered By: Renard Burgos on 05-27-2024 MCH (RBC) [Entitic mass] 30.2 pg 27.0-32.0 [facility] Mean corpuscular hemoglobin concentration (MCHC) determinationOrdered By: Renard Burgos on 05-27-2024 MCHC (RBC) [Mass/Vol] 33.2 g/dL 32-36 [facility] Mean platelet volume determi nationOrdered By: Renard Burgos on 05-27-2024 Platelet mean volume (Bld) [Entitic vol] 10.3 fL 6.2-12.0 [facility] Monocyte percentageOrdered B y: Renard Burgos on 05-27-2024 Monocytes/100 WBC (Bld) 7.0 % 0-10 [facility] Neutrophil percentageOrdered By: Renard Burgos on 05-27-2024 Neutrophils/100 WBC (Bld) 67.2 % 47-70 [facility] Nucleated red blood cell per centageOrdered By: Renard Burgos on 05-27-2024 Nucleated RBC/100 WBC (Bld) [Ratio] 0 % 0-5 [facility] Platelet countOrdered By: Garrick Bhatt on 05-27-2024 Platelets (Bld) [#/Vol] 239 10*3/uL 150-450 [facility] RBC Auto (Bld) [#/Vol]Ordere d By: Renard Burgos on 05-27-2024 RBC (Bld) [#/Vol] 4.37 10*6/uL Low 4.6-6.2 [facility] White blood cell (WBC) count Ordered By: Renard Burgos on 05-27-2024 WBC (Bld) [#/Vol] 7.4 10*3/uL 4.4-11.0 [facility] Absolute lymphocyte countOrd ered By: Renard Burgos on 05-20-2024 Lymphocytes Auto (Unsp spec) [#/Vol] 1.73 10*3/uL 0.83-4.51 [facility] Absolute neutrophil countOrd ered By: Renard Burgos on 05-20-2024 Neutrophils (Bld) [#/Vol] 7.0 10*3/uL 2.0-7.7 [facility] Automated blood erythrocyte countOrdered By: Renard Burgos on 05-20-2024 RBC (Bld) [#/Vol] 4.74 10*6/uL Normal 4.6-6.2 [facility] Comment on above: Order Comment: 109-1 Performed By: #### L 100.0100 ####[facility] [address] [place], [place], [id number](412) Automated blood hematocrit ( percentage)Ordered By: Renard Burgos on 05-20-2024 Hematocrit (Bld) [Volume fraction] 43.6 % Normal 40-54 [facility] Comment on above: Order Comment: 109-1 Performed By: #### L 100.0100 ####[facility] [address] [place], [address] Automated lymphocyte count a s percentage of total leukocytesOrdered By: Renard Burgos on 05-20-2024 Lymphocytes/100 WBC (Bld) 17.7 % Low - [facility] Comment on above: Order Comment: 109-1 Performed By: #### L 100.0100 ####[facility] [address] [place], [address] Lymphocytes/100 WBC Auto (Unsp spec) 17.7 % Low - [facility] Basophil percentageOrdered B y: Renard Burgos on 05-20-2024 Basophils/100 WBC (Bld) 0.5 % Normal 0-1 [facility] Comment on above: Order Comment: 109-1 Performed By: #### L 100.0100 ####[facility] [address] [place], [place], [address](256) CBC W/Diff, Automatedon - Absolute Lymph 1.73 X10 3/uL Normal 0.83-4.51 [facility] Comment on above: Order Comment: 109-1 Performed By: #### L 100.0100 ####[facility] [address] [place], [address] Absolute Neut 7.0 X10 3/uL Normal 2.0-7.7 [facility] Comment on above: Order Comment: 109-1 Performed By: #### L 100.0100 ####[facility] [address] [place], [address] IG% 0.500 Normal 0.0-0.9 [facility] Comment on above: Order Comment: 109-1 Result Comment: IG% - Immature Granulocytes (promyelocytes, myelocytes andmetamyelocytes) > 1% indicates that a LEFT SHIFT is Present. Performed By: #### L 100.0100 ####[facility] [address] [place], [address] Nucleated RBC (Bld) [#/Vol] 0 10*3/uL Normal 0-5 [facility] Comment on above: Order Comment: 109-1 Performed By: #### L 100.0100 ####[facility] [address] [place], [address] RDW SD 42.5 fl Normal 35.1-43.9 [facility] Comment on above: Order Comment: 109-1 Performed By: #### L 100.0100 ####[facility] [address] [place], [address] Eosinophil percentageOrdered By: Renard Burgos on 05-20-2024 Eosinophils/100 WBC (Bld) 0.5 % Normal 0-5 [facility] [facility] Comment on above: Order Comment: 109-1 Performed By: #### L 100.0100 ####[facility] [address] [place], [address] Erythrocyte distribution wid th ratioOrdered By: Renard Burgos on 05-20-2024 Erythrocyte distribution width (RBC) [Ratio] 12.6 % Normal 11.6-14.6 [facility] Comment on above: Order Comment: 109-1 Performed By: #### L 100.0100 ####[facility] [address] [place], [place], [id number] Erythrocyte distribution wid th standard deviationOrdered By: Renard Burgos on 05-20-2024 Erythrocyte distribution width (RBC) [Entitic vol] 42.5 fL 35.1-43.9 [facility] Erythrocyte distribution width (RBC) [Ratio] 42.5 fl 35.1-43.9 [facility] Hemoglobin measurementOrdere d By: Renard Burgos on 05-20-2024 Hemoglobin (Bld) [Mass/Vol] 14.4 g/dL Normal 13.0-16.5 [facility] Comment on above: Order Comment: 109-1 Performed By: #### L 100.0100 ####[facility] [address] [place], [address] Immature granulocytes/100 WB C Auto (Bld)Ordered By: Renard Burgos on 05-20-2024 Immature granulocytes/100 WBC (Bld) 0.500 % 0.0-0.9 [facility] Comment on above: IG% - Immature Granu locytes (promyelocytes, myelocytes and metamyelocytes) > 1% indicates that a LEFT SHIFT is Present. Lymphocytes Auto (Unsp spec) [#/Vol]Ordered By: Renard Burgos on 05-20-2024 Lymphocytes (Bld) [#/Vol] 1.73 10*3/uL 0.83-4.51 [facility] MCV (mean corpuscular volume ) determinationOrdered By: Renard Burgos on 05-20-2024 MCV (RBC) [Entitic vol] 92.0 fL Normal 80-94 [facility] Comment on above: Order Comment: 109-1 Performed By: #### L 100.0100 ####[facility] [address] [place], [place], [address] Mean corpuscular hemoglobin (MCH) determinationOrdered By: Renard Burgos on 05-20-2024 MCH (RBC) [Entitic mass] 30.4 pg Normal 27.0-32.0 [facility] Comment on above: Order Comment: 109-1 Performed By: #### L 100.0100 ####[facility] [address] [place], [address] Mean corpuscular hemoglobin concentration (MCHC) determinationOrdered By: Renard Burgos on 05-20-2024 MCHC (RBC) [Mass/Vol] 33.0 g/dL Normal 32-36 [facility] Comment on above: Order Comment: 109-1 Performed By: #### L 100.0100 ####[facility] [address] [place], [address] Mean platelet volume determi nationOrdered By: Renard Burgos on 05-20-2024 Platelet mean volume (Bld) [Entitic vol] 10.7 fL Normal 6.2-12.0 [facility] Comment on above: Order Comment: 109-1 Performed By: #### L 100.0100 ####[facility] [address] [place], [address] Monocyte percentageOrdered B y: Renard Burgos on 05-20-2024 Monocytes/100 WBC (Bld) 9.4 % Normal 0-10 [facility] Comment on above: Order Comment: 109-1 Performed By: #### L 100.0100 ####[facility] [address] [place], [address] Neutrophil percentageOrdered By: Renard Burgos on 05-20-2024 Neutrophils/100 WBC (Bld) 71.4 % High 47-70 [facility] Comment on above: Order Comment: 109-1 Performed By: #### L 100.0100 ####[facility] [address] [place], [address] Nucleated red blood cell per centageOrdered By: Renard Burgos on 01-20-2025 Nucleated RBC/100 WBC (Bld) [Ratio] 0 % 0-5 [facility] Platelet countOrdered By: Garrick Bhatt on 05-20-2024 Platelets (Bld) [#/Vol] 239 10*3/uL Normal 150-450 [facility] Comment on above: Order Comment: 109-1 Performed By: #### L 100.0100 ####[facility] [address] [place], [place], [address] White blood cell (WBC) count Ordered By: Renard Burgos on 05-20-2024 WBC (Bld) [#/Vol] 9.8 10*3/uL Normal 4.4-11.0 [facility] Comment on above: Order Comment: 109-1 Performed By: #### L 100.0100 ####[facility] [address] [place], [address] Absolute lymphocyte countOrd ered By: Renard Burgos on 05-13-2024 Lymphocytes Auto (Unsp spec) [#/Vol] 2.10 10*3/uL 0.83-4.51 [facility] Absolute neutrophil countOrd ered By: Renard Burgos on 05-13-2024 Neutrophils (Bld) [#/Vol] 6.2 10*3/uL 2.0-7.7 [facility] Automated lymphocyte count a s percentage of total leukocytesOrdered By: Renard Burgos on 05-13-2024 Lymphocytes/100 WBC Auto (Unsp spec) 22.8 % 19-41 [facility] Basophil percentageOrdered B y: Renard Burgos on 05-13-2024 Basophils/100 WBC (Bld) 0.5 % 0-1 [facility] CBC W/Diff, Automatedon 05-01 Absolute Lymph 2.10 X10 3/uL Normal 0.83-4.51 [facility] Comment on above: Order Comment: 109 Performed By: #### L 100.0100 ####[facility] [address] [place], [address] Absolute Neut 6.2 X10 3/uL Normal 2.0-7.7 [facility] Comment on above: Order Comment: 109 Performed By: #### L 100.0100 ####[facility] [address] [place], [address] Basophils/100 WBC (Bld) 0.5 % Normal 0-1 [facility] Comment on above: Order Comment: 109 Performed By: #### L 100.0100 ####[facility] [address] [place], [address] Eosinophils/100 WBC (Bld) 0.5 % Normal 0-5 [facility] Comment on above: Order Comment: 109 Performed By: #### L 100.0100 ####[facility] [address] [place], [address] Erythrocyte distribution width (RBC) [Ratio] 12.9 % Normal 11.6-14.6 [facility] Comment on above: Order Comment: 109 Performed By: #### L 100.0100 ####[facility] [address] [place], [address] Hematocrit (Bld) [Volume fraction] 42.5 % Normal 40-54 [facility] Comment on above: Order Comment: 109 Performed By: #### L 100.0100 ####[facility] [address] [place], [address] Hemoglobin (Bld) [Mass/Vol] 14.2 g/dL Normal 13.0-16.5 [facility] Comment on above: Order Comment: 109 Performed By: #### L 100.0100 ####[facility] [address] [place], [address] IG% 0.300 Normal 0.0-0.9 [facility] Comment on above: Order Comment: 109 Result Comment: IG% - Immature Granulocytes (promyelocytes, myelocytes andmetamyelocytes) > 1% indicates that a LEFT SHIFT is Present. Performed By: #### L 100.0100 ####[facility] [address] [place], [address] Lymphocytes/100 WBC (Bld) 22.8 % Normal 19-41 [facility] Comment on above: Order Comment: 109 Performed By: #### L 100.0100 ####[facility] [address] [place], [address] MCH (RBC) [Entitic mass] 30.3 pg Normal 27.0-32.0 [facility] Comment on above: Order Comment: 109 Performed By: #### L 100.0100 ####[facility] [address] [place], [address] MCHC (RBC) [Mass/Vol] 33.4 g/dL Normal 32-36 [facility] Comment on above: Order Comment: 109 Performed By: #### L 100.0100 ####[facility] [address] [place], [address] MCV (RBC) [Entitic vol] 90.6 fL Normal 80-94 [facility] Comment on above: Order Comment: 109 Performed By: #### L 100.0100 ####[facility] [address] [place], [address] Monocytes/100 WBC (Bld) 8.7 % Normal 0-10 [facility] Comment on above: Order Comment: 109 Performed By: #### L 100.0100 ####[facility] [address] [place], [address] Neutrophils/100 WBC (Bld) 67.2 % Normal 47-70 [facility] Comment on above: Order Comment: 109 Performed By: #### L 100.0100 ####[facility] [address] [place], [address] Nucleated RBC (Bld) [#/Vol] 0 10*3/uL Normal 0-5 [facility] Comment on above: Order Comment: 109 Performed By: #### L 100.0100 ####[facility] [address] [place], [address] Platelet mean volume (Bld) [Entitic vol] 11.1 fL Normal 6.2-12.0 [facility] Comment on above: Order Comment: 109 Performed By: #### L 100.0100 ####[facility] [address] [place], [address] Platelets (Bld) [#/Vol] 218 10*3/uL Normal 150-450 [facility] Comment on above: Order Comment: 109 Performed By: #### L 100.0100 ####[facility] [address] [place], [address] RBC (Bld) [#/Vol] 4.69 10*6/uL Normal 4.6-6.2 [facility] Comment on above: Order Comment: 109 Performed By: #### L 100.0100 ####[facility] [address] [place], [address] RDW SD 42.3 fl Normal 35.1-43.9 [facility] Comment on above: Order Comment: 109 Performed By: #### L 100.0100 ####[facility] [address] [place], [address] WBC (Bld) [#/Vol] 9.2 10*3/uL Normal 4.4-11.0 [facility] Comment on above: Order Comment: 109 Performed By: #### L 100.0100 ####[facility] [address] [place], [address] Eosinophil percentageOrdered By: Renard Burgos on 05-13-2024 Eosinophils/100 WBC (Bld) 0.5 % 0-5 [facility] Erythrocyte distribution wid th ratioOrdered By: Renard Burgos on 05-13-2024 Erythrocyte distribution width (RBC) [Ratio] 12.9 % 11.6-14.6 [facility] Erythrocyte distribution wid th standard deviationOrdered By: Renard Burgos on 05-13-2024 Erythrocyte distribution width (RBC) [Entitic vol] 42.3 fL 35.1-43.9 [facility] Erythrocyte distribution width (RBC) [Ratio] 42.3 fl 35.1-43.9 [facility] Hematocrit Auto (Bld) [Volum e fraction]Ordered By: Renard Burgos on 05-13-2024 Hematocrit (Bld) [Volume fraction] 42.5 % 40-54 [facility] Hemoglobin measurementOrdere d By: Renard Burgos on 05-13-2024 Hemoglobin (Bld) [Mass/Vol] 14.2 g/dL 13.0-16.5 [facility] Immature granulocytes/100 WB C Auto (Bld)Ordered By: Renard Burgos on 05-13-2024 Immature granulocytes/100 WBC (Bld) 0.300 % 0.0-0.9 [facility] Comment on above: IG% - Immature Granu locytes (promyelocytes, myelocytes and metamyelocytes) > 1% indicates that a LEFT SHIFT is Present. Lymphocytes Auto (Unsp spec) [#/Vol]Ordered By: Renard Burgos on 05-13-2024 Lymphocytes (Bld) [#/Vol] 2.10 10*3/uL 0.83-4.51 [facility] Lymphocytes/100 WBC Auto (Un sp spec)Ordered By: Renard Burgos on 05-13-2024 Lymphocytes/100 WBC (Bld) 22.8 % 19-41 [facility] MCV (mean corpuscular volume ) determinationOrdered By: Renard Burgos on 05-13-2024 MCV (RBC) [Entitic vol] 90.6 fL 80-94 [facility] Mean corpuscular hemoglobin (MCH) determinationOrdered By: Renard Burgos on 05-13-2024 MCH (RBC) [Entitic mass] 30.3 pg 27.0-32.0 [facility] Mean corpuscular hemoglobin concentration (MCHC) determinationOrdered By: Renard Burgos on 05-13-2024 MCHC (RBC) [Mass/Vol] 33.4 g/dL 32-36 [facility] Mean platelet volume determi nationOrdered By: Renard Burgos on 05-13-2024 Platelet mean volume (Bld) [Entitic vol] 11.1 fL 6.2-12.0 [facility] Monocyte percentageOrdered B y: Renard Burgos on 05-13-2024 Monocytes/100 WBC (Bld) 8.7 % 0-10 [facility] Neutrophil percentageOrdered By: Renard Burgos on 05-13-2024 Neutrophils/100 WBC (Bld) 67.2 % 47-70 [facility] Nucleated red blood cell per centageOrdered By: Renard Burgos on 05-13-2024 Nucleated RBC/100 WBC (Bld) [Ratio] 0 % 0-5 [facility] Platelet countOrdered By: Garrick Bhatt on 05-13-2024 Platelets (Bld) [#/Vol] 218 10*3/uL 150-450 [facility] RBC Auto (Bld) [#/Vol]Ordere d By: Renard Burgos on 05-13-2024 RBC (Bld) [#/Vol] 4.69 10*6/uL 4.6-6.2 [facility] White blood cell (WBC) count Ordered By: Renard Burgos on 05-13-2024 WBC (Bld) [#/Vol] 9.2 10*3/uL 4.4-11.0 [facility] Absolute neutrophil countOrd ered By: Renard Burgos on 05-06-2024 Neutrophils (Bld) [#/Vol] 5.9 10*3/uL 2.0-7.7 [facility] Automated blood erythrocyte countOrdered By: Renard Burgos on 05-06-2024 RBC (Bld) [#/Vol] 4.85 10*6/uL Normal 4.6-6.2 [facility] Comment on above: Order Comment: 109-1 Performed By: #### L 100.0100 ####[facility] [address] [place], [address] Automated blood hematocrit ( percentage)Ordered By: Renard Burgos on 05-06-2024 Hematocrit (Bld) [Volume fraction] 45.0 % Normal 40-54 [facility] Comment on above: Order Comment: 109-1 Performed By: #### L 100.0100 ####[facility] [address] [place], [address] Automated lymphocyte count a s percentage of total leukocytesOrdered By: Renard Burgos on 05-06-2024 Lymphocytes/100 WBC (Bld) 24.4 % Normal 19-41 [facility] Comment on above: Order Comment: 109-1 Performed By: #### L 100.0100 ####[facility] [address] [place], [address] Basophil percentageOrdered B y: Renard Burgos on 05-06-2024 Basophils/100 WBC (Bld) 0.5 % Normal 0-1 [facility] Comment on above: Order Comment: 109-1 Performed By: #### L 100.0100 ####[facility] [address] [place], [address] CBC W/Diff, Automatedon 01-0 Absolute Lymph 2.22 X10 3/uL Normal 0.83-4.51 [facility] Comment on above: Order Comment: 109-1 Performed By: #### L 100.0100 ####[facility] [address] [place], [address] Absolute Neut 5.9 X10 3/uL Normal 2.0-7.7 [facility] Comment on above: Order Comment: 109-1 Performed By: #### L 100.0100 ####[facility] [address] [place], [address] IG% 0.500 Normal 0.0-0.9 [facility] Comment on above: Order Comment: 109-1 Result Comment: IG% - Immature Granulocytes (promyelocytes, myelocytes andmetamyelocytes) > 1% indicates that a LEFT SHIFT is Present. Performed By: #### L 100.0100 ####[facility] [address] [place], [address] Nucleated RBC (Bld) [#/Vol] 0 10*3/uL Normal 0-5 [facility] Comment on above: Order Comment: 109-1 Performed By: #### L 100.0100 ####[facility] [address] [place], [address] RDW SD 43.9 fl Normal 35.1-43.9 [facility] Comment on above: Order Comment: 109-1 Performed By: #### L 100.0100 ####[facility] [address] [place], [address] Eosinophil percentageOrdered By: Renard Burgos on 05-06-2024 Eosinophils/100 WBC (Bld) 0.4 % Normal 0-5 [facility] Comment on above: Order Comment: 109-1 Performed By: #### L 100.0100 ####[facility] [address] [place], [address] Erythrocyte distribution wid th ratioOrdered By: Renard Burgos on 05-06-2024 Erythrocyte distribution width (RBC) [Ratio] 13.0 % Normal 11.6-14.6 [facility] Comment on above: Order Comment: 109-1 Performed By: #### L 100.0100 ####[facility] [address] [place], [address] Erythrocyte distribution wid th standard deviationOrdered By: Renard Burgos on 05-06-2024 Erythrocyte distribution width (RBC) [Entitic vol] 43.9 fL 35.1-43.9 [facility] Hemoglobin measurementOrdere d By: Renard Burgos on 05-06-2024 Hemoglobin (Bld) [Mass/Vol] 14.5 g/dL Normal 13.0-16.5 [facility] Comment on above: Order Comment: 109-1 Performed By: #### L 100.0100 ####[facility] [address] [place], [address] Immature granulocytes/100 WB C Auto (Bld)Ordered By: Renard Burgos on 05-06-2024 Immature granulocytes/100 WBC (Bld) 0.500 % 0.0-0.9 [facility] Comment on above: IG% - Immature Granu locytes (promyelocytes, myelocytes and metamyelocytes) > 1% indicates that a LEFT SHIFT is Present. Lymphocytes Auto (Unsp spec) [#/Vol]Ordered By: Renard Burgos on 05-06-2024 Lymphocytes (Bld) [#/Vol] 2.22 10*3/uL 0.83-4.51 [facility] MCV (mean corpuscular volume ) determinationOrdered By: Renard Burgos on 05-06-2024 MCV (RBC) [Entitic vol] 92.8 fL Normal 80-94 [facility] Comment on above: Order Comment: 109-1 Performed By: #### L 100.0100 ####[facility] [address] [facility] [address] [place], [place], [id number]) Mean corpuscular hemoglobin (MCH) determinationOrdered By: Renard Burgos on 05-06-2024 MCH (RBC) [Entitic mass] 29.9 pg Normal 27.0-32.0 [facility] Comment on above: Order Comment: 109-1 Performed By: #### L 100.0100 ####[facility] [address] [place], [address] Mean corpuscular hemoglobin concentration (MCHC) determinationOrdered By: Renard Burgos on 05-06-2024 MCHC (RBC) [Mass/Vol] 32.2 g/dL Normal 32-36 [facility] Comment on above: Order Comment: 109-1 Performed By: #### L 100.0100 ####[facility] [address] [facility] [place], [address] Mean platelet volume determi nationOrdered By: Renard Burgos on 05-06-2024 Platelet mean volume (Bld) [Entitic vol] 11.4 fL Normal 6.2-12.0 [facility] Comment on above: Order Comment: 109-1 Performed By: #### L 100.0100 ####[facility] [address] [place], [address] Monocyte percentageOrdered B y: Renard Burgos on 05-06-2024 Monocytes/100 WBC (Bld) 9.7 % Normal 0-10 [facility] Comment on above: Order Comment: 109-1 Performed By: #### L 100.0100 ####[facility] [address] [place], [address] Neutrophil percentageOrdered By: Renard Burgos on 05-06-2024 Neutrophils/100 WBC (Bld) 64.5 % Normal 47-70 [facility] Comment on above: Order Comment: 109-1 Performed By: #### L 100.0100 ####[facility] [address] [place], [address] Nucleated red blood cell per centageOrdered By: Renard Burgos on 05-06-2024 Nucleated RBC/100 WBC (Bld) [Ratio] 0 % 0-5 [facility] Platelet countOrdered By: Garrick Bhatt on 05-06-2024 Platelets (Bld) [#/Vol] 201 10*3/uL Normal 150-450 [facility] Comment on above: Order Comment: 109-1 Performed By: #### L 100.0100 ####[facility] [address] [place], [address] White blood cell (WBC) count Ordered By: Renard Burgos on 05-06-2024 WBC (Bld) [#/Vol] 9.1 10*3/uL Normal 4.4-11.0 [facility] Comment on above: Order Comment: 109-1 Performed By: #### L 100.0100 ####[facility] [address] [place], [address] 36on 05-03-2024 36 Gissel is calling to let Dr. Burgos know that the medication he prescribed he not certified, she is going to fax the information to the office. [phone] Normal [facility] Absolute neutrophil countOrd ered By: Renard Burgos on 04-29-2024 Neutrophils (Bld) [#/Vol] 6.3 10*3/uL 2.0-7.7 [facility] Basophil percentageOrdered B y: Renard Burgos on 04-29-2024 Basophils/100 WBC (Bld) 0.4 % 0-1 [facility] CBC W/Diff, Automatedon - 0-2023 Absolute Lymph 2.11 X10 3/uL Normal 0.83-4.51 [facility] Comment on above: Order Comment: 109.1 Performed By: #### L 100.0100 ####[facility] [address] [place], [address] Absolute Neut 6.3 X10 3/uL Normal 2.0-7.7 [facility] Comment on above: Order Comment: 109.1 Performed By: #### L 100.0100 ####[facility] [address] [place], [address] Basophils/100 WBC (Bld) 0.4 % Normal 0-1 [facility] Comment on above: Order Comment: 109.1 Performed By: #### L 100.0100 ####[facility] [address] [place], [address] Eosinophils/100 WBC (Bld) 0.4 % Normal 0-5 [facility] Comment on above: Order Comment: 109.1 Performed By: #### L 100.0100 ####[facility] [address] [place], [address] Erythrocyte distribution width (RBC) [Ratio] 12.6 % Normal 11.6-14.6 [facility] Comment on above: Order Comment: 109.1 Performed By: #### L 100.0100 ####[facility] [address] [place], [address] Hematocrit (Bld) [Volume fraction] 41.6 % Normal 40-54 [facility] Comment on above: Order Comment: 109.1 Performed By: #### L 100.0100 ####[facility] [address] [place], [address] Hemoglobin (Bld) [Mass/Vol] 13.7 g/dL Normal 13.0-16.5 [facility] Comment on above: Order Comment: 109.1 Performed By: #### L 100.0100 ####[facility] [address] [place], [address] IG% 0.400 Normal 0.0-0.9 [facility] Comment on above: Order Comment: 109.1 Result Comment: IG% - Immature Granulocytes (promyelocytes, myelocytes andmetamyelocytes) > 1% indicates that a LEFT SHIFT is Present. Performed By: #### L 100.0100 ####[facility] [address] [place], [address] Lymphocytes/100 WBC (Bld) 22.6 % Normal 19-41 [facility] Comment on above: Order Comment: 109.1 Performed By: #### L 100.0100 ####[facility] [address] [place], [address] MCH (RBC) [Entitic mass] 30.1 pg Normal 27.0-32.0 [facility] Comment on above: Order Comment: 109.1 Performed By: #### L 100.0100 ####[facility] [address] [place], [address] MCHC (RBC) [Mass/Vol] 32.9 g/dL Normal 32-36 [facility] Comment on above: Order Comment: 109.1 Performed By: #### L 100.0100 ####[facility] [address] [place], [address] MCV (RBC) [Entitic vol] 91.4 fL Normal 80-94 [facility] Comment on above: Order Comment: 109.1 Performed By: #### L 100.0100 ####[facility] [address] [place], [address] Monocytes/100 WBC (Bld) 9.3 % Normal 0-10 [facility] Comment on above: Order Comment: 109.1 Performed By: #### L 100.0100 ####[facility] [address] [place], [address] Neutrophils/100 WBC (Bld) 66.9 % Normal 47-70 [facility] Comment on above: Order Comment: 109.1 Performed By: #### L 100.0100 ####[facility] [address] [place], [address] Nucleated RBC (Bld) [#/Vol] 0 10*3/uL Normal 0-5 [facility] Comment on above: Order Comment: 109.1 Performed By: #### L 100.0100 ####[facility] [address] [place], [address] Platelet mean volume (Bld) [Entitic vol] 11.0 fL Normal 6.2-12.0 [facility] Comment on above: Order Comment: 109.1 Performed By: #### L 100.0100 ####[facility] [address] [place], [address] Platelets (Bld) [#/Vol] 211 10*3/uL Normal 150-450 [facility] Comment on above: Order Comment: 109.1 Performed By: #### L 100.0100 ####[facility] [address] [place], [address] RBC (Bld) [#/Vol] 4.55 10*6/uL Low 4.6-6.2 [facility] Comment on above: Order Comment: 109.1 Performed By: #### L 100.0100 ####[facility] [address] [place], [address] RDW SD 41.5 fl Normal 35.1-43.9 [facility] Comment on above: Order Comment: 109.1 Performed By: #### L 100.0100 ####[facility] [address] [place], [address] WBC (Bld) [#/Vol] 9.4 10*3/uL Normal 4.4-11.0 [facility] Comment on above: Order Comment: 109.1 Performed By: #### L 100.0100 ####[facility] [address] [place], [address] Eosinophil percentageOrdered By: Renard Burgos on 04-29-2024 Eosinophils/100 WBC (Bld) 0.4 % 0-5 [facility] Erythrocyte distribution wid th ratioOrdered By: Renard Burgos on 04-29-2024 Erythrocyte distribution width (RBC) [Ratio] 12.6 % 11.6-14.6 [facility] Erythrocyte distribution wid th standard deviationOrdered By: Renard Burgos on 04-29-2024 Erythrocyte distribution width (RBC) [Entitic vol] 41.5 fL 35.1-43.9 [facility] Hematocrit Auto (Bld) [Volum e fraction]Ordered By: Renard Burgos on 04-29-2024 Hematocrit (Bld) [Volume fraction] 41.6 % 40-54 [facility] Hemoglobin measurementOrdere d By: Renard Burgos on 04-29-2024 Hemoglobin (Bld) [Mass/Vol] 13.7 g/dL 13.0-16.5 [facility] Immature granulocytes/100 WB C Auto (Bld)Ordered By: Renard Burgos on 04-29-2024 Immature granulocytes/100 WBC (Bld) 0.400 % 0.0-0.9 [facility] Comment on above: IG% - Immature Granu locytes (promyelocytes, myelocytes and metamyelocytes) > 1% indicates that a LEFT SHIFT is Present. Lymphocytes Auto (Unsp spec) [#/Vol]Ordered By: Renard Burgos on 04-29-2024 Lymphocytes (Bld) [#/Vol] 2.11 10*3/uL 0.83-4.51 [facility] Lymphocytes/100 WBC Auto (Un sp spec)Ordered By: Renard Burgos on 04-29-2024 Lymphocytes/100 WBC (Bld) 22.6 % 19-41 [facility] MCV (mean corpuscular volume ) determinationOrdered By: Renard Burgos on 04-29-2024 MCV (RBC) [Entitic vol] 91.4 fL 80-94 [facility] Mean corpuscular hemoglobin (MCH) determinationOrdered By: Renard Burgos on 04-29-2024 MCH (RBC) [Entitic mass] 30.1 pg 27.0-32.0 [facility] Mean corpuscular hemoglobin concentration (MCHC) determinationOrdered By: Renadr Burgos on 04-29-2024 MCHC (RBC) [Mass/Vol] 32.9 g/dL 32-36 [facility] Mean platelet volume determi nationOrdered By: Renard Burgos on 04-29-2024 Platelet mean volume (Bld) [Entitic vol] 11.0 fL 6.2-12.0 [facility] Monocyte percentageOrdered B y: Renard Burgos on 04-29-2024 Monocytes/100 WBC (Bld) 9.3 % 0-10 [facility] Neutrophil percentageOrdered By: Renard Burgos on 04-29-2024 Neutrophils/100 WBC (Bld) 66.9 % 47-70 [facility] Nucleated red blood cell per centageOrdered By: Renard Burgos on 04-29-2024 Nucleated RBC/100 WBC (Bld) [Ratio] 0 % 0-5 [facility] Platelet countOrdered By: Garrick Bhatt on 04-29-2024 Platelets (Bld) [#/Vol] 211 10*3/uL 150-450 [facility] RBC Auto (Bld) [#/Vol]Ordere d By: Renard Burgos on 04-29-2024 RBC (Bld) [#/Vol] 4.55 10*6/uL Low 4.6-6.2 [facility] White blood cell (WBC) count Ordered By: Renard Burgos on 04-29-2024 WBC (Bld) [#/Vol] 9.4 10*3/uL 4.4-11.0 [facility] Absolute neutrophil countOrd ered By: Renard Hensleydiego on 04-22-2024 Neutrophils (Bld) [#/Vol] 8.1 10*3/uL High 2.0-7.7 [facility] Basophil percentageOrdered B y: Renard Burgos on 04-22-2024 Basophils/100 WBC (Bld) 0.5 % 0-1 [facility] CBC W/Diff, Automatedon 04-01 Absolute Lymph 2.61 X10 3/uL Normal 0.83-4.51 [facility] Comment on above: Order Comment: 109-1 Performed By: #### L 100.0100 ####[facility] [address] [place], [address] Absolute Neut 8.1 X10 3/uL High 2.0-7.7 [facility] Comment on above: Order Comment: 109-1 Performed By: #### L 100.0100 ####[facility] [address] [place], [address] Basophils/100 WBC (Bld) 0.5 % Normal 0-1 [facility] Comment on above: Order Comment: 109-1 Performed By: #### L 100.0100 ####[facility] [address] [place], [address] Eosinophils/100 WBC (Bld) 0.4 % Normal 0-5 [facility] Comment on above: Order Comment: 109-1 Performed By: #### L 100.0100 ####[facility] [address] [place], [address] Erythrocyte distribution width (RBC) [Ratio] 12.6 % Normal 11.6-14.6 [facility] Comment on above: Order Comment: 109-1 Performed By: #### L 100.0100 ####[facility] [address] [place], [address] Hematocrit (Bld) [Volume fraction] 44.5 % Normal 40-54 [facility] Comment on above: Order Comment: 109-1 Performed By: #### L 100.0100 ####[facility] [address] [place], [address] Hemoglobin (Bld) [Mass/Vol] 14.3 g/dL Normal 13.0-16.5 [facility] Comment on above: Order Comment: 109-1 Performed By: #### L 100.0100 ####[facility] [address] [place], [address] IG% 0.300 Normal 0.0-0.9 [facility] Comment on above: Order Comment: 109-1 Result Comment: IG% - Immature Granulocytes (promyelocytes, myelocytes andmetamyelocytes) > 1% indicates that a LEFT SHIFT is Present. Performed By: #### L 100.0100 ####[facility] [address] [place], [address] Lymphocytes/100 WBC (Bld) 22.0 % Normal 19-41 [facility] Comment on above: Order Comment: 109-1 Performed By: #### L 100.0100 ####[facility] [address] [place], [address] MCH (RBC) [Entitic mass] 29.7 pg Normal 27.0-32.0 [facility] Comment on above: Order Comment: 109-1 Performed By: #### L 100.0100 ####[facility] [address] [place], [address] MCHC (RBC) [Mass/Vol] 32.1 g/dL Normal 32-36 [facility] Comment on above: Order Comment: 109-1 Performed By: #### L 100.0100 ####[facility] [address] [place], [address] MCV (RBC) [Entitic vol] 92.5 fL Normal 80-94 [facility] Comment on above: Order Comment: 109-1 Performed By: #### L 100.0100 ####[facility] [address] [place], [address] Monocytes/100 WBC (Bld) 8.3 % Normal 0-10 [facility] Comment on above: Order Comment: 109-1 Performed By: #### L 100.0100 ####[facility] [address] [place], [address] Neutrophils/100 WBC (Bld) 68.5 % Normal 47-70 [facility] Comment on above: Order Comment: 109-1 Performed By: #### L 100.0100 ####[facility] [address] [place], [address] Nucleated RBC (Bld) [#/Vol] 0 10*3/uL Normal 0-5 [facility] Comment on above: Order Comment: 109-1 Performed By: #### L 100.0100 ####[facility] [address] [place], [address] Platelet mean volume (Bld) [Entitic vol] 11.0 fL Normal 6.2-12.0 [facility] Comment on above: Order Comment: 109-1 Performed By: #### L 100.0100 ####[facility] [address] [place], [address] Platelets (Bld) [#/Vol] 190 10*3/uL Normal 150-450 [facility] Comment on above: Order Comment: 109-1 Performed By: #### L 100.0100 ####[facility] [address] [place], [address] RBC (Bld) [#/Vol] 4.81 10*6/uL Normal 4.6-6.2 [facility] Comment on above: Order Comment: 109-1 Performed By: #### L 100.0100 ####[facility] [address] [place], [address] RDW SD 43.0 fl Normal 35.1-43.9 [facility] Comment on above: Order Comment: 109-1 Performed By: #### L 100.0100 ####[facility] [address] [place], [address] WBC (Bld) [#/Vol] 11.9 10*3/uL High 4.4-11.0 [facility] Comment on above: Order Comment: 109-1 Performed By: #### L 100.0100 ####[facility] [address] [place], [address] Eosinophil percentageOrdered By: Renard Burgos on 04-22-2024 Eosinophils/100 WBC (Bld) 0.4 % 0-5 [facility] Erythrocyte distribution wid th ratioOrdered By: Renard Burgos on 04-22-2024 Erythrocyte distribution width (RBC) [Ratio] 12.6 % 11.6-14.6 [facility] Erythrocyte distribution wid th standard deviationOrdered By: Renard Burgos on 04-22-2024 Erythrocyte distribution width (RBC) [Entitic vol] 43.0 fL 35.1-43.9 [facility] Hematocrit Auto (Bld) [Volum e fraction]Ordered By: Renard Burgos on 04-22-2024 Hematocrit (Bld) [Volume fraction] 44.5 % 40-54 [facility] Hemoglobin measurementOrdere d By: Renard Burgos on 04-22-2024 Hemoglobin (Bld) [Mass/Vol] 14.3 g/dL 13.0-16.5 [facility] Immature granulocytes/100 WB C Auto (Bld)Ordered By: Renard Burgos on 04-22-2024 Immature granulocytes/100 WBC (Bld) 0.300 % 0.0-0.9 [facility] Comment on above: IG% - Immature Granu locytes (promyelocytes, myelocytes and metamyelocytes) > 1% indicates that a LEFT SHIFT is Present. Lymphocytes Auto (Unsp spec) [#/Vol]Ordered By: Renard Burgos on 04-22-2024 Lymphocytes (Bld) [#/Vol] 2.61 10*3/uL 0.83-4.51 [facility] Lymphocytes/100 WBC Auto (Un sp spec)Ordered By: Renard Burgos on 04-22-2024 Lymphocytes/100 WBC (Bld) 22.0 % 19-41 [facility] MCV (mean corpuscular volume ) determinationOrdered By: Renard Burgos on 04-22-2024 MCV (RBC) [Entitic vol] 92.5 fL 80-94 [facility] Mean corpuscular hemoglobin (MCH) determinationOrdered By: Renard Burgos on 04-22-2024 MCH (RBC) [Entitic mass] 29.7 pg 27.0-32.0 [facility] Mean corpuscular hemoglobin concentration (MCHC) determinationOrdered By: Renard Burgos on 04-22-2024 MCHC (RBC) [Mass/Vol] 32.1 g/dL 32-36 [facility] Mean platelet volume determi nationOrdered By: Renard Burgos on 04-22-2024 Platelet mean volume (Bld) [Entitic vol] 11.0 fL 6.2-12.0 [facility] Monocyte percentageOrdered B y: Renard Burgos on 04-22-2024 Monocytes/100 WBC (Bld) 8.3 % 0-10 [facility] Neutrophil percentageOrdered By: Renard Burgos on 04-22-2024 Neutrophils/100 WBC (Bld) 68.5 % 47-70 [facility] Nucleated red blood cell per centageOrdered By: Renard Burgos on 04-22-2024 Nucleated RBC/100 WBC (Bld) [Ratio] 0 % 0-5 [facility] Platelet countOrdered By: Garrick Bhatt on 04-22-2024 Platelets (Bld) [#/Vol] 190 10*3/uL 150-450 [facility] RBC Auto (Bld) [#/Vol]Ordere d By: Renard Burgos on 04-22-2024 RBC (Bld) [#/Vol] 4.81 10*6/uL 4.6-6.2 [facility] White blood cell (WBC) count Ordered By: Renard Burgos on 04-22-2024 WBC (Bld) [#/Vol] 11.9 10*3/uL High 4.4-11.0 [facility] Absolute neutrophil countOrd ered By: Renard Burgos on 04-15-2024 Neutrophils (Bld) [#/Vol] 8.7 10*3/uL High 2.0-7.7 [facility] Basophil percentageOrdered B y: Renard Burgos on 04-15-2024 Basophils/100 WBC (Bld) 0.3 % 0-1 [facility] Bilirubin, totalOrdered By: Renard Burgos on 04-15-2024 Bilirubin [Mass/Vol] 0.30 mg/dL 0.20-1.00 [facility] Comment on above: For patients on eltr ombopag therapy, use of Dimension [place] TBIL is not recommended. Bilirubin.direct [Mass/Vol]O rdered By: Renard Burgos on 04-15-2024 Direct Bilirubin < 0.05 mg/dL 0.00-0.30 [facility] CBC W/Diff, Automatedon 03-31 Absolute Lymph 1.93 X10 3/uL Normal 0.83-4.51 [facility] Comment on above: Order Comment: 109-1 Performed By: #### L 100.0100, L500.3400 ####[facility] [address] [place], [address] Absolute Neut 8.7 X10 3/uL High 2.0-7.7 [facility] Comment on above: Order Comment: 109-1 Performed By: #### L 100.0100, L500.3400 ####[facility] [address] [place], [address] Basophils/100 WBC (Bld) 0.3 % Normal 0-1 [facility] Comment on above: Order Comment: 109-1 Performed By: #### L 100.0100, L500.3400 ####[facility] [address] [place], [address] Eosinophils/100 WBC (Bld) 0.4 % Normal 0-5 [facility] Comment on above: Order Comment: 109-1 Performed By: #### L 100.0100, L500.3400 ####[facility] [address] [place], [address] Erythrocyte distribution width (RBC) [Ratio] 12.8 % Normal 11.6-14.6 [facility] Comment on above: Order Comment: 109-1 Performed By: #### L 100.0100, L500.3400 ####[facility] [address] [place], [address] Hematocrit (Bld) [Volume fraction] 42.5 % Normal 40-54 [facility] Comment on above: Order Comment: 109-1 Performed By: #### L 100.0100, L500.3400 ####[facility] [address] [place], [address] Hemoglobin (Bld) [Mass/Vol] 13.7 g/dL Normal 13.0-16.5 [facility] Comment on above: Order Comment: 109-1 Performed By: #### L 100.0100, L500.3400 ####[facility] [address] [place], [address] IG% 0.400 Normal 0.0-0.9 [facility] Comment on above: Order Comment: 109-1 Result Comment: IG% - Immature Granulocytes (promyelocytes, myelocytes andmetamyelocytes) > 1% indicates that a LEFT SHIFT is Present. Performed By: #### L 100.0100, L500.3400 ####[facility] [address] [place], [address] Lymphocytes/100 WBC (Bld) 16.9 % Low 19-41 [facility] Comment on above: Order Comment: 109-1 Performed By: #### L 100.0100, L500.3400 ####[facility] [address] [place], [address] MCH (RBC) [Entitic mass] 29.5 pg Normal 27.0-32.0 [facility] Comment on above: Order Comment: 109-1 Performed By: #### L 100.0100, L500.3400 ####[facility] [address] [place], [address] MCHC (RBC) [Mass/Vol] 32.2 g/dL Normal 32-36 [facility] Comment on above: Order Comment: 109-1 Performed By: #### L 100.0100, L500.3400 ####[facility] [address] [place], [address] MCV (RBC) [Entitic vol] 91.6 fL Normal 80-94 [facility] Comment on above: Order Comment: 109-1 Performed By: #### L 100.0100, L500.3400 ####[facility] [address] [place], [address] Monocytes/100 WBC (Bld) 6.0 % Normal 0-10 [facility] Comment on above: Order Comment: 109-1 Performed By: #### L 100.0100, L500.3400 ####[facility] [address] [place], [address] Neutrophils/100 WBC (Bld) 76.0 % High 47-70 [facility] Comment on above: Order Comment: 109-1 Performed By: #### L 100.0100, L500.3400 ####[facility] [address] [place], [address] Nucleated RBC (Bld) [#/Vol] 0 10*3/uL Normal 0-5 [facility] Comment on above: Order Comment: 109-1 Performed By: #### L 100.0100, L500.3400 ####[facility] [address] [place], [address] Platelet mean volume (Bld) [Entitic vol] 11.1 fL Normal 6.2-12.0 [facility] Comment on above: Order Comment: 109-1 Performed By: #### L 100.0100, L500.3400 ####[facility] [address] [place], [address] Platelets (Bld) [#/Vol] 197 10*3/uL Normal 150-450 [facility] Comment on above: Order Comment: 109-1 Performed By: #### L 100.0100, L500.3400 ####[facility] [address] [place], [address] RBC (Bld) [#/Vol] 4.64 10*6/uL Normal 4.6-6.2 [facility] Comment on above: Order Comment: 109-1 Performed By: #### L 100.0100, L500.3400 ####[facility] [address] [place], [address] RDW SD 42.5 fl Normal 35.1-43.9 [facility] Comment on above: Order Comment: 109-1 Performed By: #### L 100.0100, L500.3400 ####[facility] [address] [place], [address] WBC (Bld) [#/Vol] 11.4 10*3/uL High 4.4-11.0 [facility] Comment on above: Order Comment: 109-1 Performed By: #### L 100.0100, L500.3400 ####[facility] [address] [place], [address] Eosinophil percentageOrdered By: Renard Burgos on 04-15-2024 Eosinophils/100 WBC (Bld) 0.4 % 0-5 [facility] Erythrocyte distribution wid th ratioOrdered By: Renard Burgos on 04-15-2024 Erythrocyte distribution width (RBC) [Ratio] 12.8 % 11.6-14.6 [facility] Erythrocyte distribution wid th standard deviationOrdered By: Renard Burgos on 04-15-2024 Erythrocyte distribution width (RBC) [Entitic vol] 42.5 fL 35.1-43.9 [facility] Hematocrit Auto (Bld) [Volum e fraction]Ordered By: Renard Burgos on 04-15-2024 Hematocrit (Bld) [Volume fraction] 42.5 % 40-54 [facility] Hemoglobin measurementOrdere d By: Renard Burgos on 04-15-2024 Hemoglobin (Bld) [Mass/Vol] 13.7 g/dL 13.0-16.5 [facility] Immature granulocytes/100 WB C Auto (Bld)Ordered By: Renard Burgos on 04-15-2024 Immature granulocytes/100 WBC (Bld) 0.400 % 0.0-0.9 [facility] Comment on above: IG% - Immature Granu locytes (promyelocytes, myelocytes and metamyelocytes) > 1% indicates that a LEFT SHIFT is Present. Laboratory - Chemistry and C hemistry - challengeOrdered By: Renard Burgos on 04-15-2024 AST [Catalytic activity/Vol] 18 U/L 15-37 [facility] Comment on above: Slight Hemolysis, Re sult may be falsely increased. Liver Profileon 04-15-2024 Albumin [Mass/Vol] 2.9 g/dL Low 3.2-5.0 [facility] Comment on above: Order Comment: 109-1 Performed By: #### L 100.0100, L500.3400 ####[facility] [address] [place], [place], [address] ALK P 126 U/L High 45-117 [facility] Comment on above: Order Comment: 109-1 Performed By: #### L 100.0100, L500.3400 ####[facility] [address] [place], [address] ALT [Catalytic activity/Vol] 21 U/L Normal 16-61 [facility] Comment on above: Order Comment: 109-1 Performed By: #### L 100.0100, L500.3400 ####[facility] [address] [place], [address] AST [Catalytic activity/Vol] 18 U/L Normal 15-37 [facility] Comment on above: Order Comment: 109-1 Result Comment: Slig ht Hemolysis, Result may be falsely increased. Performed By: #### L 100.0100, L500.3400 ####[facility] [address] [place], [address] Bilirubin [Mass/Vol] 0.30 mg/dL Normal 0.20-1.00 [facility] Comment on above: Order Comment: 109-1 Result Comment: For patients on eltrombopag therapy, use of Dimension [place] TBIL is not recommended. Performed By: #### L 100.0100, L500.3400 ####[facility] [address] [place], [address] D BILI < 0.05 Normal 0.00-0.30 [facility] Comment on above: Order Comment: 109-1 Performed By: #### L 100.0100, L500.3400 ####[facility] [address] [place], [address] Globulin (S) [Mass/Vol] 3.0 g/dL Normal 2.2-4.2 [facility] Comment on above: Order Comment: 109-1 Performed By: #### L 100.0100, L500.3400 ####[facility] [address] [place], [address] T PROT 5.9 g/dL Low 6.4-8.2 [facility] Comment on above: Order Comment: 109-1 Performed By: #### L 100.0100, L500.3400 ####[facility] [address] [place], [address] Lymphocytes Auto (Unsp spec) [#/Vol]Ordered By: Renard Burgos on 04-15-2024 Lymphocytes (Bld) [#/Vol] 1.93 10*3/uL 0.83-4.51 [facility] Lymphocytes/100 WBC Auto (Un sp spec)Ordered By: Renard Burgos on 04-15-2024 Lymphocytes/100 WBC (Bld) 16.9 % Low 19-41 [facility] MCV (mean corpuscular volume ) determinationOrdered By: Renard Burgos on 04-15-2024 MCV (RBC) [Entitic vol] 91.6 fL 80-94 [facility] Mean corpuscular hemoglobin (MCH) determinationOrdered By: Renard Burgos on 04-15-2024 MCH (RBC) [Entitic mass] 29.5 pg 27.0-32.0 [facility] Mean corpuscular hemoglobin concentration (MCHC) determinationOrdered By: Renard Burgos on 04-15-2024 MCHC (RBC) [Mass/Vol] 32.2 g/dL 32-36 [facility] Mean platelet volume determi nationOrdered By: Renard Burgos on 04-15-2024 Platelet mean volume (Bld) [Entitic vol] 11.1 fL 6.2-12.0 [facility] Monocyte percentageOrdered B y: Renard Burgos on 04-15-2024 Monocytes/100 WBC (Bld) 6.0 % 0-10 [facility] Neutrophil percentageOrdered By: Renard Burgos on 04-15-2024 Neutrophils/100 WBC (Bld) 76.0 % High 47-70 [facility] Nucleated red blood cell per centageOrdered By: Renard Burgos on 04-15-2024 Nucleated RBC/100 WBC (Bld) [Ratio] 0 % 0-5 [facility] Platelet countOrdered By: Garrick Bhatt on 04-15-2024 Platelets (Bld) [#/Vol] 197 10*3/uL 150-450 [facility] RBC Auto (Bld) [#/Vol]Ordere d By: Renard Burgos on 04-15-2024 RBC (Bld) [#/Vol] 4.64 10*6/uL 4.6-6.2 [facility] Serum globulin measurementOr dered By: Renard Burgos on 04-15-2024 Globulin (S) [Mass/Vol] 3.0 g/dL 2.2-4.2 [facility] Serum or plasma alanine kay otransferase (ALT) measurementOrdered By: Renard Burgos on 04-15-2024 ALT [Catalytic activity/Vol] 21 U/L 16-61 [facility] Serum or plasma albumin gordy urement (mass/volume)Ordered By: Renard Burgos on 04-15-2024 Albumin [Mass/Vol] 2.9 g/dL Low 3.2-5.0 [facility] Serum or plasma alkaline trace sphatase measurementOrdered By: Renard Burgos on 04-15-2024 ALP [Catalytic activity/Vol] 126 U/L High 45-117 [facility] Total proteinOrdered By: Lyubov Burgos on 04-15-2024 Protein [Mass/Vol] 5.9 g/dL Low 6.4-8.2 [facility] White blood cell (WBC) count Ordered By: Renard Burgos on 04-15-2024 WBC (Bld) [#/Vol] 11.4 10*3/uL High 4.4-11.0 [facility] Absolute neutrophil countOrd ered By: Renard Burgos on 04-08-2024 Neutrophils (Bld) [#/Vol] 5.7 10*3/uL 2.0-7.7 [facility] Basophil percentageOrdered B y: Renard Burgos on 04-08-2024 Basophils/100 WBC (Bld) 0.6 % 0-1 [facility] CBC W/Diff, Automatedon Absolute Lymph 2.27 X10 3/uL Normal 0.83-4.51 [facility] Comment on above: Order Comment: 109.1 Performed By: #### L 100.0100 ####[facility] [address] [place], [place], [id number] Absolute Neut 5.7 X10 3/uL Normal 2.0-7.7 [facility] Comment on above: Order Comment: 109.1 Performed By: #### L 100.0100 ####[facility] [address] [place], [address] Basophils/100 WBC (Bld) 0.6 % Normal 0-1 [facility] Comment on above: Order Comment: 109.1 Performed By: #### L 100.0100 ####[facility] [address], [address] Eosinophils/100 WBC (Bld) 0.5 % Normal 0-5 [facility] Comment on above: Order Comment: 109.1 Performed By: #### L 100.0100 ####[facility] [address], [address] Erythrocyte distribution width (RBC) [Ratio] 12.6 % Normal 11.6-14.6 [facility] Comment on above: Order Comment: 109.1 Performed By: #### L 100.0100 ####[facility] [address] [place], [address] Hematocrit (Bld) [Volume fraction] 41.2 % Normal 40-54 [facility] Comment on above: Order Comment: 109.1 Performed By: #### L 100.0100 ####[facility] [address] [place], [address] Hemoglobin (Bld) [Mass/Vol] 13.3 g/dL Normal 13.0-16.5 [facility] Comment on above: Order Comment: 109.1 Performed By: #### L 100.0100 ####[facility] [address] [place], [address] IG% 0.200 Normal 0.0-0.9 [facility] Comment on above: Order Comment: 109.1 Result Comment: IG% - Immature Granulocytes (promyelocytes, myelocytes andmetamyelocytes) > 1% indicates that a LEFT SHIFT is Present. Performed By: #### L 100.0100 ####[facility] [address] [place], [address] Lymphocytes/100 WBC (Bld) 26.0 % Normal 19-41 [facility] Comment on above: Order Comment: 109.1 Performed By: #### L 100.0100 ####[facility] [address] [place], [address] MCH (RBC) [Entitic mass] 29.6 pg Normal 27.0-32.0 [facility] Comment on above: Order Comment: 109.1 Performed By: #### L 100.0100 ####[facility] [address] [place], [address] MCHC (RBC) [Mass/Vol] 32.3 g/dL Normal 32-36 [facility] Comment on above: Order Comment: 109.1 Performed By: #### L 100.0100 ####[facility] [address] [place], [address] MCV (RBC) [Entitic vol] 91.8 fL Normal 80-94 [facility] Comment on above: Order Comment: 109.1 Performed By: #### L 100.0100 ####[facility] [address] [place], [address] Monocytes/100 WBC (Bld) 7.8 % Normal 0-10 [facility] Comment on above: Order Comment: 109.1 Performed By: #### L 100.0100 ####[facility] [address] [place], [address] Neutrophils/100 WBC (Bld) 64.9 % Normal 47-70 [facility] Comment on above: Order Comment: 109.1 Performed By: #### L 100.0100 ####[facility] [address] [place], [address] Nucleated RBC (Bld) [#/Vol] 0 10*3/uL Normal 0-5 [facility] Comment on above: Order Comment: 109.1 Performed By: #### L 100.0100 ####[facility] [address] [place], [address] Platelet mean volume (Bld) [Entitic vol] 10.8 fL Normal 6.2-12.0 [facility] Comment on above: Order Comment: 109.1 Performed By: #### L 100.0100 ####[facility] [address] [place], [address] Platelets (Bld) [#/Vol] 208 10*3/uL Normal 150-450 [facility] Comment on above: Order Comment: 109.1 Performed By: #### L 100.0100 ####[facility] [address] [place], [address] RBC (Bld) [#/Vol] 4.49 10*6/uL Low 4.6-6.2 [facility] Comment on above: Order Comment: 109.1 Performed By: #### L 100.0100 ####[facility] [address] [place], [address] RDW SD 42.4 fl Normal 35.1-43.9 [facility] Comment on above: Order Comment: 109.1 Performed By: #### L 100.0100 ####[facility] [address] [place], [address] WBC (Bld) [#/Vol] 8.7 10*3/uL Normal 4.4-11.0 [facility] Comment on above: Order Comment: 109.1 Performed By: #### L 100.0100 ####[facility] [address] [place], [address] Eosinophil percentageOrdered By: Renard Burgos on 04-08-2024 Eosinophils/100 WBC (Bld) 0.5 % 0-5 [facility] Erythrocyte distribution wid th ratioOrdered By: Renard Burgos on 04-08-2024 Erythrocyte distribution width (RBC) [Ratio] 12.6 % 11.6-14.6 [facility] Erythrocyte distribution wid th standard deviationOrdered By: Renard Burgos on 04-08-2024 Erythrocyte distribution width (RBC) [Entitic vol] 42.4 fL 35.1-43.9 [facility] Hematocrit Auto (Bld) [Volum e fraction]Ordered By: Renard Burgos on 04-08-2024 Hematocrit (Bld) [Volume fraction] 41.2 % 40-54 [facility] Hemoglobin measurementOrdere d By: Renard Burgos on 04-08-2024 Hemoglobin (Bld) [Mass/Vol] 13.3 g/dL 13.0-16.5 [facility] Immature granulocytes/100 WB C Auto (Bld)Ordered By: Renard Burgos on 04-08-2024 Immature granulocytes/100 WBC (Bld) 0.200 % 0.0-0.9 [facility] Comment on above: IG% - Immature Granu locytes (promyelocytes, myelocytes and metamyelocytes) > 1% indicates that a LEFT SHIFT is Present. Lymphocytes Auto (Unsp spec) [#/Vol]Ordered By: Renard Burgos on 04-08-2024 Lymphocytes (Bld) [#/Vol] 2.27 10*3/uL 0.83-4.51 [facility] Lymphocytes/100 WBC Auto (Un sp spec)Ordered By: Renard Burgos on 04-08-2024 Lymphocytes/100 WBC (Bld) 26.0 % 19-41 [facility] MCV (mean corpuscular volume ) determinationOrdered By: Renard Burgos on 04-08-2024 MCV (RBC) [Entitic vol] 91.8 fL 80-94 [facility] Mean corpuscular hemoglobin (MCH) determinationOrdered By: Renard Burgos on 04-08-2024 MCH (RBC) [Entitic mass] 29.6 pg 27.0-32.0 [facility] Mean corpuscular hemoglobin concentration (MCHC) determinationOrdered By: Renard Burgos on 04-08-2024 MCHC (RBC) [Mass/Vol] 32.3 g/dL 32-36 [facility] Mean platelet volume determi nationOrdered By: Renard Burgos on 04-08-2024 Platelet mean volume (Bld) [Entitic vol] 10.8 fL 6.2-12.0 [facility] Monocyte percentageOrdered B y: Renard Burgos on 04-08-2024 Monocytes/100 WBC (Bld) 7.8 % 0-10 [facility] Neutrophil percentageOrdered By: Renard Burgos on 04-08-2024 Neutrophils/100 WBC (Bld) 64.9 % 47-70 [facility] Nucleated red blood cell per centageOrdered By: Renard Burgos on 04-08-2024 Nucleated RBC/100 WBC (Bld) [Ratio] 0 % 0-5 [facility] Platelet countOrdered By: Garrick Bhatt on 04-08-2024 Platelets (Bld) [#/Vol] 208 10*3/uL 150-450 [facility] RBC Auto (Bld) [#/Vol]Ordere d By: Renard Burgos on 04-08-2024 RBC (Bld) [#/Vol] 4.49 10*6/uL Low 4.6-6.2 [facility] White blood cell (WBC) count Ordered By: Renard Burgos on 04-08-2024 WBC (Bld) [#/Vol] 8.7 10*3/uL 4.4-11.0 [facility] Absolute neutrophil countOrd ered By: Renard Burgos on 04-01-2024 Neutrophils (Bld) [#/Vol] 7.1 10*3/uL 2.0-7.7 [facility] Basophil percentageOrdered B y: Renard Burgos on 04-01-2024 Basophils/100 WBC (Bld) 0.4 % 0-1 [facility] CBC W/Diff, Automatedon Absolute Lymph 1.97 X10 3/uL Normal 0.83-4.51 [facility] Comment on above: Order Comment: 109-1 Performed By: #### L 100.0100 ####[facility] [address] [place], [address] Absolute Neut 7.1 X10 3/uL Normal 2.0-7.7 [facility] Comment on above: Order Comment: 109-1 Performed By: #### L 100.0100 ####[facility] [address] [place], [address] Basophils/100 WBC (Bld) 0.4 % Normal 0-1 [facility] Comment on above: Order Comment: 109-1 Performed By: #### L 100.0100 ####[facility] [address] [place], [address] Eosinophils/100 WBC (Bld) 0.4 % Normal 0-5 [facility] Comment on above: Order Comment: 109-1 Performed By: #### L 100.0100 ####[facility] [address] [place], [address] Erythrocyte distribution width (RBC) [Ratio] 12.6 % Normal 11.6-14.6 [facility] Comment on above: Order Comment: 109-1 Performed By: #### L 100.0100 ####[facility] [address] [place], [address] Hematocrit (Bld) [Volume fraction] 41.7 % Normal 40-54 [facility] Comment on above: Order Comment: 109-1 Performed By: #### L 100.0100 ####[facility] [address] [place], [address] Hemoglobin (Bld) [Mass/Vol] 13.6 g/dL Normal 13.0-16.5 [facility] Comment on above: Order Comment: 109-1 Performed By: #### L 100.0100 ####[facility] [address] [place], [address] IG% 0.300 Normal 0.0-0.9 [facility] Comment on above: Order Comment: 109-1 Result Comment: IG% - Immature Granulocytes (promyelocytes, myelocytes andmetamyelocytes) > 1% indicates that a LEFT SHIFT is Present. Performed By: #### L 100.0100 ####[facility] [address] [place], [address] Lymphocytes/100 WBC (Bld) 20.0 % Normal 19-41 [facility] Comment on above: Order Comment: 109-1 Performed By: #### L 100.0100 ####[facility] [address] [place], [address] MCH (RBC) [Entitic mass] 29.7 pg Normal 27.0-32.0 [facility] Comment on above: Order Comment: 109-1 Performed By: #### L 100.0100 ####[facility] [address] [place], [address] MCHC (RBC) [Mass/Vol] 32.6 g/dL Normal 32-36 [facility] Comment on above: Order Comment: 109-1 Performed By: #### L 100.0100 ####[facility] [address] [place], [address] MCV (RBC) [Entitic vol] 91.0 fL Normal 80-94 [facility] Comment on above: Order Comment: 109-1 Performed By: #### L 100.0100 ####[facility] [address] [place], [address] Monocytes/100 WBC (Bld) 7.1 % Normal 0-10 [facility] Comment on above: Order Comment: 109-1 Performed By: #### L 100.0100 ####[facility] [address] [place], [address] Neutrophils/100 WBC (Bld) 71.8 % High 47-70 [facility] Comment on above: Order Comment: 109-1 Performed By: #### L 100.0100 ####[facility] [address] [place], [address] Nucleated RBC (Bld) [#/Vol] 0 10*3/uL Normal 0-5 [facility] Comment on above: Order Comment: 109-1 Performed By: #### L 100.0100 ####[facility] [address] [place], [address] Platelet mean volume (Bld) [Entitic vol] 11.3 fL Normal 6.2-12.0 [facility] Comment on above: Order Comment: 109-1 Performed By: #### L 100.0100 ####[facility] [address] [place], [address] Platelets (Bld) [#/Vol] 195 10*3/uL Normal 150-450 [facility] Comment on above: Order Comment: 109-1 Performed By: #### L 100.0100 ####[facility] [address] [place], [address] RBC (Bld) [#/Vol] 4.58 10*6/uL Low 4.6-6.2 [facility] Comment on above: Order Comment: 109-1 Performed By: #### L 100.0100 ####[facility] [address] [place], [address] RDW SD 41.2 fl Normal 35.1-43.9 [facility] Comment on above: Order Comment: 109-1 Performed By: #### L 100.0100 ####[facility] [address] [place], [address] WBC (Bld) [#/Vol] 9.8 10*3/uL Normal 4.4-11.0 [facility] Comment on above: Order Comment: 109-1 Performed By: #### L 100.0100 ####[facility] [address] [place], [address] Eosinophil percentageOrdered By: Renard Burgos on 04-01-2024 Eosinophils/100 WBC (Bld) 0.4 % 0-5 [facility] Erythrocyte distribution wid th ratioOrdered By: Renard Burgos on 04-01-2024 Erythrocyte distribution width (RBC) [Ratio] 12.6 % 11.6-14.6 [facility] Erythrocyte distribution wid th standard deviationOrdered By: Renard Burgos on 04-01-2024 Erythrocyte distribution width (RBC) [Entitic vol] 41.2 fL 35.1-43.9 [facility] Hematocrit Auto (Bld) [Volum e fraction]Ordered By: Renard Burgos on 04-01-2024 Hematocrit (Bld) [Volume fraction] 41.7 % 40-54 [facility] Hemoglobin measurementOrdere d By: Renard Burgos on 04-01-2024 Hemoglobin (Bld) [Mass/Vol] 13.6 g/dL 13.0-16.5 [facility] Immature granulocytes/100 WB C Auto (Bld)Ordered By: Renard Burgos on 04-01-2024 Immature granulocytes/100 WBC (Bld) 0.300 % 0.0-0.9 [facility] Comment on above: IG% - Immature Granu locytes (promyelocytes, myelocytes and metamyelocytes) > 1% indicates that a LEFT SHIFT is Present. Lymphocytes Auto (Unsp spec) [#/Vol]Ordered By: Renard Burgos on 04-01-2024 Lymphocytes (Bld) [#/Vol] 1.97 10*3/uL 0.83-4.51 [facility] Lymphocytes/100 WBC Auto (Un sp spec)Ordered By: Renard Burgos on 04-01-2024 Lymphocytes/100 WBC (Bld) 20.0 % 19-41 [facility] MCV (mean corpuscular volume ) determinationOrdered By: Renard Burgos on 04-01-2024 MCV (RBC) [Entitic vol] 91.0 fL 80-94 [facility] Mean corpuscular hemoglobin (MCH) determinationOrdered By: Renard Burgos on 04-01-2024 MCH (RBC) [Entitic mass] 29.7 pg 27.0-32.0 [facility] Mean corpuscular hemoglobin concentration (MCHC) determinationOrdered By: Renard Burgos on 04-01-2024 MCHC (RBC) [Mass/Vol] 32.6 g/dL 32-36 [facility] Mean platelet volume determi nationOrdered By: Renard Burgos on 04-01-2024 Platelet mean volume (Bld) [Entitic vol] 11.3 fL 6.2-12.0 [facility] Monocyte percentageOrdered B y: Renard Burgos on 04-01-2024 Monocytes/100 WBC (Bld) 7.1 % 0-10 [facility] Neutrophil percentageOrdered By: Renard Burgos on 04-01-2024 Neutrophils/100 WBC (Bld) 71.8 % High 47-70 [facility] Nucleated red blood cell per centageOrdered By: Renard Burgos on 04-01-2024 Nucleated RBC/100 WBC (Bld) [Ratio] 0 % 0-5 [facility] Platelet countOrdered By: Garrick Bhatt on 04-01-2024 Platelets (Bld) [#/Vol] 195 10*3/uL 150-450 [facility] RBC Auto (Bld) [#/Vol]Ordere d By: Renard Burgos on 04-01-2024 RBC (Bld) [#/Vol] 4.58 10*6/uL Low 4.6-6.2 [facility] White blood cell (WBC) count Ordered By: Renard Burgos on 04-01-2024 WBC (Bld) [#/Vol] 9.8 10*3/uL 4.4-11.0 [facility] Absolute neutrophil countOrd ered By: Renard Burgos on 03-25-2024 Neutrophils (Bld) [#/Vol] 5.4 10*3/uL 2.0-7.7 [facility] Basophil percentageOrdered B y: Renard Burgos on 03-25-2024 Basophils/100 WBC (Bld) 0.5 % 0-1 [facility] CBC W/Diff, Automatedon 03-02 Absolute Lymph 2.14 X10 3/uL Normal 0.83-4.51 [facility] Comment on above: Order Comment: 109-1 Performed By: #### L 100.0100 ####[facility] [address] [place], [address] Absolute Neut 5.4 X10 3/uL Normal 2.0-7.7 [facility] Comment on above: Order Comment: 109-1 Performed By: #### L 100.0100 ####[facility] [address] [place], [address] Basophils/100 WBC (Bld) 0.5 % Normal 0-1 [facility] Comment on above: Order Comment: 109-1 Performed By: #### L 100.0100 ####[facility] [address] [place], [address] Eosinophils/100 WBC (Bld) 0.7 % Normal 0-5 [facility] Comment on above: Order Comment: 109-1 Performed By: #### L 100.0100 ####[facility] [address] [place], [address] Erythrocyte distribution width (RBC) [Ratio] 12.7 % Normal 11.6-14.6 [facility] Comment on above: Order Comment: 109-1 Performed By: #### L 100.0100 ####[facility] [address] [place], [address] Hematocrit (Bld) [Volume fraction] 42.3 % Normal 40-54 [facility] Comment on above: Order Comment: 109-1 Performed By: #### L 100.0100 ####[facility] [address] [place], [address] Hemoglobin (Bld) [Mass/Vol] 13.7 g/dL Normal 13.0-16.5 [facility] Comment on above: Order Comment: 109-1 Performed By: #### L 100.0100 ####[facility] [address] [place], [address] IG% 0.500 Normal 0.0-0.9 [facility] Comment on above: Order Comment: 109-1 Result Comment: IG% - Immature Granulocytes (promyelocytes, myelocytes andmetamyelocytes) > 1% indicates that a LEFT SHIFT is Present. Performed By: #### L 100.0100 ####[facility] [address] [place], [address] Lymphocytes/100 WBC (Bld) 25.8 % Normal 19-41 [facility] Comment on above: Order Comment: 109-1 Performed By: #### L 100.0100 ####[facility] [address] [place], [address] MCH (RBC) [Entitic mass] 29.2 pg Normal 27.0-32.0 [facility] Comment on above: Order Comment: 109-1 Performed By: #### L 100.0100 ####[facility] [address] [place], [address] MCHC (RBC) [Mass/Vol] 32.4 g/dL Normal 32-36 [facility] Comment on above: Order Comment: 109-1 Performed By: #### L 100.0100 ####[facility] [address] [place], [address] MCV (RBC) [Entitic vol] 90.2 fL Normal 80-94 [facility] Comment on above: Order Comment: 109-1 Performed By: #### L 100.0100 ####[facility] [address] [place], [address] Monocytes/100 WBC (Bld) 8.0 % Normal 0-10 [facility] Comment on above: Order Comment: 109-1 Performed By: #### L 100.0100 ####[facility] [address] [place], [address] Neutrophils/100 WBC (Bld) 64.5 % Normal 47-70 [facility] Comment on above: Order Comment: 109-1 Performed By: #### L 100.0100 ####[facility] [address] [place], [address] Nucleated RBC (Bld) [#/Vol] 0 10*3/uL Normal 0-5 [facility] Comment on above: Order Comment: 109-1 Performed By: #### L 100.0100 ####[facility] [address] [place], [address] Platelet mean volume (Bld) [Entitic vol] 11.2 fL Normal 6.2-12.0 [facility] Comment on above: Order Comment: 109-1 Performed By: #### L 100.0100 ####[facility] [address] [place], [address] Platelets (Bld) [#/Vol] 204 10*3/uL Normal 150-450 [facility] Comment on above: Order Comment: 109-1 Performed By: #### L 100.0100 ####[facility] [address] [place], [address] RBC (Bld) [#/Vol] 4.69 10*6/uL Normal 4.6-6.2 [facility] Comment on above: Order Comment: 109-1 Performed By: #### L 100.0100 ####[facility] [address] [place], [address] RDW SD 41.8 fl Normal 35.1-43.9 [facility] Comment on above: Order Comment: 109-1 Performed By: #### L 100.0100 ####[facility] [address] [place], [address] WBC (Bld) [#/Vol] 8.3 10*3/uL Normal 4.4-11.0 [facility] Comment on above: Order Comment: 109-1 Performed By: #### L 100.0100 ####[facility] [address] [place], [address] Eosinophil percentageOrdered By: Renard Burgos on 03-25-2024 Eosinophils/100 WBC (Bld) 0.7 % 0-5 [facility] Erythrocyte distribution wid th ratioOrdered By: Renard Burgos on 03-25-2024 Erythrocyte distribution width (RBC) [Ratio] 12.7 % 11.6-14.6 [facility] Erythrocyte distribution wid th standard deviationOrdered By: Renard Burgos on 03-25-2024 Erythrocyte distribution width (RBC) [Entitic vol] 41.8 fL 35.1-43.9 [facility] Hematocrit Auto (Bld) [Volum e fraction]Ordered By: Renard Burgos on 03-25-2024 Hematocrit (Bld) [Volume fraction] 42.3 % 40-54 [facility] Hemoglobin measurementOrdere d By: Renard Burgos on 03-25-2024 Hemoglobin (Bld) [Mass/Vol] 13.7 g/dL 13.0-16.5 [facility] Immature granulocytes/100 WB C Auto (Bld)Ordered By: Renard Burgos on 03-25-2024 Immature granulocytes/100 WBC (Bld) 0.500 % 0.0-0.9 [facility] Comment on above: IG% - Immature Granu locytes (promyelocytes, myelocytes and metamyelocytes) > 1% indicates that a LEFT SHIFT is Present. Lymphocytes Auto (Unsp spec) [#/Vol]Ordered By: Renard Burgos on 03-25-2024 Lymphocytes (Bld) [#/Vol] 2.14 10*3/uL 0.83-4.51 [facility] Lymphocytes/100 WBC Auto (Un sp spec)Ordered By: Renard Burgos on 03-25-2024 Lymphocytes/100 WBC (Bld) 25.8 % 19-41 [facility] MCV (mean corpuscular volume ) determinationOrdered By: Renard Burgos on 03-25-2024 MCV (RBC) [Entitic vol] 90.2 fL 80-94 [facility] Mean corpuscular hemoglobin (MCH) determinationOrdered By: Renard Burgos on 03-25-2024 MCH (RBC) [Entitic mass] 29.2 pg 27.0-32.0 [facility] Mean corpuscular hemoglobin concentration (MCHC) determinationOrdered By: Renard Burgos on 03-25-2024 MCHC (RBC) [Mass/Vol] 32.4 g/dL 32-36 [facility] Mean platelet volume determi nationOrdered By: Renard Burgos on 03-25-2024 Platelet mean volume (Bld) [Entitic vol] 11.2 fL 6.2-12.0 [facility] Monocyte percentageOrdered B y: Renard Burgos on 03-25-2024 Monocytes/100 WBC (Bld) 8.0 % 0-10 [facility] Neutrophil percentageOrdered By: Renard Burgos on 03-25-2024 Neutrophils/100 WBC (Bld) 64.5 % 47-70 [facility] Nucleated red blood cell per centageOrdered By: Renard Burgos on 03-25-2024 Nucleated RBC/100 WBC (Bld) [Ratio] 0 % 0-5 [facility] Platelet countOrdered By: Garrick Bhatt on 03-25-2024 Platelets (Bld) [#/Vol] 204 10*3/uL 150-450 [facility] RBC Auto (Bld) [#/Vol]Ordere d By: Renard Burgos on 03-25-2024 RBC (Bld) [#/Vol] 4.69 10*6/uL 4.6-6.2 [facility] White blood cell (WBC) count Ordered By: Renard Burgos on 03-25-2024 WBC (Bld) [#/Vol] 8.3 10*3/uL 4.4-11.0 [facility] Absolute neutrophil countOrd ered By: Renard Burgos on 03-18-2024 Neutrophils (Bld) [#/Vol] 5.2 10*3/uL 2.0-7.7 [facility] Basophil percentageOrdered B y: Renard Burgos on 03-18-2024 Basophils/100 WBC (Bld) 0.6 % 0-1 [facility] CBC W/Diff, Automatedon 03-01 Absolute Lymph 2.23 X10 3/uL Normal 0.83-4.51 [facility] Comment on above: Order Comment: 109.1 Performed By: #### L 100.0100 ####[facility] [address] [place], [address] Absolute Neut 5.2 X10 3/uL Normal 2.0-7.7 [facility] Comment on above: Order Comment: 109.1 Performed By: #### L 100.0100 ####[facility] [address] [place], [address] Basophils/100 WBC (Bld) 0.6 % Normal 0-1 [facility] Comment on above: Order Comment: 109.1 Performed By: #### L 100.0100 ####[facility] [address] [place], [address] Eosinophils/100 WBC (Bld) 0.7 % Normal 0-5 [facility] Comment on above: Order Comment: 109.1 Performed By: #### L 100.0100 ####[facility] [address] [place], [address] Erythrocyte distribution width (RBC) [Ratio] 12.8 % Normal 11.6-14.6 [facility] Comment on above: Order Comment: 109.1 Performed By: #### L 100.0100 ####[facility] [address] [place], [address] Hematocrit (Bld) [Volume fraction] 42.0 % Normal 40-54 [facility] Comment on above: Order Comment: 109.1 Performed By: #### L 100.0100 ####[facility] [address] [place], [address] Hemoglobin (Bld) [Mass/Vol] 13.6 g/dL Normal 13.0-16.5 [facility] Comment on above: Order Comment: 109.1 Performed By: #### L 100.0100 ####[facility] [address] [place], [address] IG% 0.500 Normal 0.0-0.9 [facility] Comment on above: Order Comment: 109.1 Result Comment: IG% - Immature Granulocytes (promyelocytes, myelocytes andmetamyelocytes) > 1% indicates that a LEFT SHIFT is Present. Performed By: #### L 100.0100 ####[facility] [address] [place], [address] Lymphocytes/100 WBC (Bld) 27.0 % Normal 19-41 [facility] Comment on above: Order Comment: 109.1 Performed By: #### L 100.0100 ####[facility] [address] [place], [address] MCH (RBC) [Entitic mass] 29.5 pg Normal 27.0-32.0 [facility] Comment on above: Order Comment: 109.1 Performed By: #### L 100.0100 ####[facility] [address] [place], [address] MCHC (RBC) [Mass/Vol] 32.4 g/dL Normal 32-36 [facility] Comment on above: Order Comment: 109.1 Performed By: #### L 100.0100 ####[facility] [address] [place], [address] MCV (RBC) [Entitic vol] 91.1 fL Normal 80-94 [facility] Comment on above: Order Comment: 109.1 Performed By: #### L 100.0100 ####[facility] [address] [place], [address] Monocytes/100 WBC (Bld) 8.5 % Normal 0-10 [facility] Comment on above: Order Comment: 109.1 Performed By: #### L 100.0100 ####[facility] [address] [place], [address] Neutrophils/100 WBC (Bld) 62.7 % Normal 47-70 [facility] Comment on above: Order Comment: 109.1 Performed By: #### L 100.0100 ####[facility] [address] [place], [address] Nucleated RBC (Bld) [#/Vol] 0 10*3/uL Normal 0-5 [facility] Comment on above: Order Comment: 109.1 Performed By: #### L 100.0100 ####[facility] [address] [place], [address] Platelet mean volume (Bld) [Entitic vol] 10.8 fL Normal 6.2-12.0 [facility] Comment on above: Order Comment: 109.1 Performed By: #### L 100.0100 ####[facility] [address] [place], [address] Platelets (Bld) [#/Vol] 211 10*3/uL Normal 150-450 [facility] Comment on above: Order Comment: 109.1 Performed By: #### L 100.0100 ####[facility] [address] [place], [address] RBC (Bld) [#/Vol] 4.61 10*6/uL Normal 4.6-6.2 [facility] Comment on above: Order Comment: 109.1 Performed By: #### L 100.0100 ####[facility] [address] [place], [address] RDW SD 42.3 fl Normal 35.1-43.9 [facility] Comment on above: Order Comment: 109.1 Performed By: #### L 100.0100 ####[facility] [address] [place], [address] WBC (Bld) [#/Vol] 8.3 10*3/uL Normal 4.4-11.0 [facility] Comment on above: Order Comment: 109.1 Performed By: #### L 100.0100 ####[facility] [address] [place], [address] Eosinophil percentageOrdered By: Renard Burgos on 03-18-2024 Eosinophils/100 WBC (Bld) 0.7 % 0-5 [facility] Erythrocyte distribution wid th ratioOrdered By: Renard Burgos on 03-18-2024 Erythrocyte distribution width (RBC) [Ratio] 12.8 % 11.6-14.6 [facility] Erythrocyte distribution wid th standard deviationOrdered By: Renard Burgos on 03-18-2024 Erythrocyte distribution width (RBC) [Entitic vol] 42.3 fL 35.1-43.9 [facility] Hematocrit Auto (Bld) [Volum e fraction]Ordered By: Renard Burgos on 03-18-2024 Hematocrit (Bld) [Volume fraction] 42.0 % 40-54 [facility] Hemoglobin measurementOrdere d By: Renard Burgos on 03-18-2024 Hemoglobin (Bld) [Mass/Vol] 13.6 g/dL 13.0-16.5 [facility] Immature granulocytes/100 WB C Auto (Bld)Ordered By: Renard Burgos on 03-18-2024 Immature granulocytes/100 WBC (Bld) 0.500 % 0.0-0.9 [facility] Comment on above: IG% - Immature Granu locytes (promyelocytes, myelocytes and metamyelocytes) > 1% indicates that a LEFT SHIFT is Present. Lymphocytes Auto (Unsp spec) [#/Vol]Ordered By: Renard Burgos on 03-18-2024 Lymphocytes (Bld) [#/Vol] 2.23 10*3/uL 0.83-4.51 [facility] Lymphocytes/100 WBC Auto (Un sp spec)Ordered By: Renard Burgos on 03-18-2024 Lymphocytes/100 WBC (Bld) 27.0 % 19-41 [facility] MCV (mean corpuscular volume ) determinationOrdered By: Renard Burgos on 03-18-2024 MCV (RBC) [Entitic vol] 91.1 fL 80-94 [facility] Mean corpuscular hemoglobin (MCH) determinationOrdered By: Renard Burgos on 03-18-2024 MCH (RBC) [Entitic mass] 29.5 pg 27.0-32.0 [facility] Mean corpuscular hemoglobin concentration (MCHC) determinationOrdered By: Renard Burgos on 03-18-2024 MCHC (RBC) [Mass/Vol] 32.4 g/dL 32-36 [facility] Mean platelet volume determi nationOrdered By: Renard Burgos on 03-18-2024 Platelet mean volume (Bld) [Entitic vol] 10.8 fL 6.2-12.0 [facility] Monocyte percentageOrdered B y: Renard Burgos on 03-18-2024 Monocytes/100 WBC (Bld) 8.5 % 0-10 [facility] Neutrophil percentageOrdered By: Renard Burgos on 03-18-2024 Neutrophils/100 WBC (Bld) 62.7 % 47-70 [facility] Nucleated red blood cell per centageOrdered By: Renard Burgos on 03-18-2024 Nucleated RBC/100 WBC (Bld) [Ratio] 0 % 0-5 [facility] Platelet countOrdered By: Garrick Bhatt on 03-18-2024 Platelets (Bld) [#/Vol] 211 10*3/uL 150-450 [facility] RBC Auto (Bld) [#/Vol]Ordere d By: Renard Burgos on 03-18-2024 RBC (Bld) [#/Vol] 4.61 10*6/uL 4.6-6.2 [facility] White blood cell (WBC) count Ordered By: Renard Burgos on 03-18-2024 WBC (Bld) [#/Vol] 8.3 10*3/uL 4.4-11.0 [facility] Absolute neutrophil countOrd ered By: Renard Burgos on 03-11-2024 Neutrophils (Bld) [#/Vol] 6.2 10*3/uL 2.0-7.7 [facility] Automated blood erythrocyte countOrdered By: Renard Burgos on 03-11-2024 RBC (Bld) [#/Vol] 4.54 10*6/uL Low 4.6-6.2 [facility] Comment on above: Order Comment: 109.1 Performed By: #### L 100.0100 ####[facility] [address] [place], [address] Automated blood hematocrit ( percentage)Ordered By: Renard Burgos on 03-11-2024 Hematocrit (Bld) [Volume fraction] 41.5 % Normal 40-54 [facility] Comment on above: Order Comment: 109.1 Performed By: #### L 100.0100 ####[facility] [address] [place], [address] Automated lymphocyte count a s percentage of total leukocytesOrdered By: Renard Brugos on 03-11-2024 Lymphocytes/100 WBC (Bld) 25.6 % Normal 19-41 [facility] Comment on above: Order Comment: 109.1 Performed By: #### L 100.0100 ####[facility] [address] [place], [address] Basophil percentageOrdered B y: Renard Burgos on 03-11-2024 Basophils/100 WBC (Bld) 0.5 % Normal 0-1 [facility] Comment on above: Order Comment: 109.1 Performed By: #### L 100.0100 ####[facility] [address] [place], [address] CBC W/Diff, Automatedon 03-01 Absolute Lymph 2.50 X10 3/uL Normal 0.83-4.51 [facility] Comment on above: Order Comment: 109.1 Performed By: #### L 100.0100 ####[facility] [address] [place], [address] Absolute Neut 6.2 X10 3/uL Normal 2.0-7.7 [facility] Comment on above: Order Comment: 109.1 Performed By: #### L 100.0100 ####[facility] [address] [place], [address] IG% 0.500 Normal 0.0-0.9 [facility] Comment on above: Order Comment: 109.1 Result Comment: IG% - Immature Granulocytes (promyelocytes, myelocytes andmetamyelocytes) > 1% indicates that a LEFT SHIFT is Present. Performed By: #### L 100.0100 ####[facility] [address] [place], [address] Nucleated RBC (Bld) [#/Vol] 0 10*3/uL Normal 0-5 [facility] Comment on above: Order Comment: 109.1 Performed By: #### L 100.0100 ####[facility] [address] [place], [address] RDW SD 41.5 fl Normal 35.1-43.9 [facility] Comment on above: Order Comment: 109.1 Performed By: #### L 100.0100 ####[facility] [address] [place], [address] Eosinophil percentageOrdered By: Renard Burgos on 03-11-2024 Eosinophils/100 WBC (Bld) 0.6 % Normal 0-5 [facility] Comment on above: Order Comment: 109.1 Performed By: #### L 100.0100 ####[facility] [address] [place], [address] Erythrocyte distribution wid th ratioOrdered By: Renard Burgos on 03-11-2024 Erythrocyte distribution width (RBC) [Ratio] 12.7 % Normal 11.6-14.6 [facility] Comment on above: Order Comment: 109.1 Performed By: #### L 100.0100 ####[facility] [address] [place], [address] Erythrocyte distribution wid th standard deviationOrdered By: Renard Burgos on 03-11-2024 Erythrocyte distribution width (RBC) [Entitic vol] 41.5 fL 35.1-43.9 [facility] Hemoglobin measurementOrdere d By: Renard Burgos on 03-11-2024 Hemoglobin (Bld) [Mass/Vol] 13.8 g/dL Normal 13.0-16.5 [facility] Comment on above: Order Comment: 109.1 Performed By: #### L 100.0100 ####[facility] [address] [place], [place], [id number] Immature granulocytes/100 WB C Auto (Bld)Ordered By: Renard Burgos on 03-11-2024 Immature granulocytes/100 WBC (Bld) 0.500 % 0.0-0.9 [facility] Comment on above: IG% - Immature Granu locytes (promyelocytes, myelocytes and metamyelocytes) > 1% indicates that a LEFT SHIFT is Present. Lymphocytes Auto (Unsp spec) [#/Vol]Ordered By: Renard Burgos on 03-11-2024 Lymphocytes (Bld) [#/Vol] 2.50 10*3/uL 0.83-4.51 [facility] MCV (mean corpuscular volume ) determinationOrdered By: Renard Burgos on 03-11-2024 MCV (RBC) [Entitic vol] 91.4 fL Normal 80-94 [facility] Comment on above: Order Comment: 109.1 Performed By: #### L 100.0100 ####[facility] [address] [place], [place], [phone] Mean corpuscular hemoglobin (MCH) determinationOrdered By: Renard Burgos on 03-11-2024 MCH (RBC) [Entitic mass] 30.4 pg Normal 27.0-32.0 [facility] Comment on above: Order Comment: 109.1 Performed By: #### L 100.0100 ####[facility] [address] [place], [address] Mean corpuscular hemoglobin concentration (MCHC) determinationOrdered By: Renard Burgos on 03-11-2024 MCHC (RBC) [Mass/Vol] 33.3 g/dL Normal 32-36 [facility] Comment on above: Order Comment: 109.1 Performed By: #### L 100.0100 ####[facility] [address] [place], [address] Mean platelet volume determi nationOrdered By: Renard Burgos on 03-11-2024 Platelet mean volume (Bld) [Entitic vol] 11.0 fL Normal 6.2-12.0 [facility] Comment on above: Order Comment: 109.1 Performed By: #### L 100.0100 ####[facility] [address] [place], [address] Monocyte percentageOrdered B y: Renard Burgos on 03-11-2024 Monocytes/100 WBC (Bld) 9.0 % Normal 0-10 [facility] Comment on above: Order Comment: 109.1 Performed By: #### L 100.0100 ####[facility] [address], [address] Neutrophil percentageOrdered By: Renard Burgos on 03-11-2024 Neutrophils/100 WBC (Bld) 63.8 % Normal 47-70 [facility] Comment on above: Order Comment: 109.1 Performed By: #### L 100.0100 ####[facility] [address], [address] Nucleated red blood cell per centageOrdered By: Renard Burgos on 03-11-2024 Nucleated RBC/100 WBC (Bld) [Ratio] 0 % 0-5 [facility] Platelet countOrdered By: Garrick Bhatt on 03-11-2024 Platelets (Bld) [#/Vol] 220 10*3/uL Normal 150-450 [facility] Comment on above: Order Comment: 109.1 Performed By: #### L 100.0100 ####[facility] [address] [place], [address] White blood cell (WBC) count Ordered By: Renard Burgos on 03-11-2024 WBC (Bld) [#/Vol] 9.8 10*3/uL Normal 4.4-11.0 [facility] Comment on above: Order Comment: 109.1 Performed By: #### L 100.0100 ####[facility] [address] [place], [address] CBC W/Diff, Automatedon 11-0 4-4 Absolute Lymph 1.99 X10 3/uL Normal 0.83-4.51 [facility] Comment on above: Order Comment: 109.1 Performed By: #### L 100.0100 ####[facility] [address] [place], [address] Absolute Neut 5.3 X10 3/uL Normal 2.0-7.7 [facility] Comment on above: Order Comment: 109.1 Performed By: #### L 100.0100 ####[facility] [address] [place], [address] Basophils/100 WBC (Bld) 0.6 % Normal 0-1 [facility] Comment on above: Order Comment: 109.1 Performed By: #### L 100.0100 ####[facility] [address] [place], [address] Eosinophils/100 WBC (Bld) 0.7 % Normal 0-5 [facility] Comment on above: Order Comment: 109.1 Performed By: #### L 100.0100 ####[facility] [address] [place], [address] Erythrocyte distribution width (RBC) [Ratio] 12.7 % Normal 11.6-14.6 [facility] Comment on above: Order Comment: 109.1 Performed By: #### L 100.0100 ####[facility] [address] [place], [address] Hematocrit (Bld) [Volume fraction] 42.1 % Normal 40-54 [facility] Comment on above: Order Comment: 109.1 Performed By: #### L 100.0100 ####[facility] [address] [place], [address] Hemoglobin (Bld) [Mass/Vol] 14.0 g/dL Normal 13.0-16.5 [facility] Comment on above: Order Comment: 109.1 Performed By: #### L 100.0100 ####[facility] [address] [place], [address] IG% 0.400 Normal 0.0-0.9 [facility] Comment on above: Order Comment: 109.1 Result Comment: IG% - Immature Granulocytes (promyelocytes, myelocytes andmetamyelocytes) > 1% indicates that a LEFT SHIFT is Present. Performed By: #### L 100.0100 ####[facility] [address] [place], [address] Lymphocytes/100 WBC (Bld) 24.5 % Normal 19-41 [facility] Comment on above: Order Comment: 109.1 Performed By: #### L 100.0100 ####[facility] [address] [place], [address] MCH (RBC) [Entitic mass] 30.2 pg Normal 27.0-32.0 [facility] Comment on above: Order Comment: 109.1 Performed By: #### L 100.0100 ####[facility] [address] [place], [address] MCHC (RBC) [Mass/Vol] 33.3 g/dL Normal 32-36 [facility] Comment on above: Order Comment: 109.1 Performed By: #### L 100.0100 ####[facility] [address] [place], [address] MCV (RBC) [Entitic vol] 90.7 fL Normal 80-94 [facility] Comment on above: Order Comment: 109.1 Performed By: #### L 100.0100 ####[facility] [address] [place], [address] Monocytes/100 WBC (Bld) 8.2 % Normal 0-10 [facility] Comment on above: Order Comment: 109.1 Performed By: #### L 100.0100 ####[facility] [address], [address] Neutrophils/100 WBC (Bld) 65.6 % Normal 47-70 [facility] Comment on above: Order Comment: 109.1 Performed By: #### L 100.0100 ####[facility] [address] [place], [address] Nucleated RBC (Bld) [#/Vol] 0 10*3/uL Normal 0-5 [facility] Comment on above: Order Comment: 109.1 Performed By: #### L 100.0100 ####[facility] [address] [place], [address] Platelet mean volume (Bld) [Entitic vol] 11.0 fL Normal 6.2-12.0 [facility] Comment on above: Order Comment: 109.1 Performed By: #### L 100.0100 ####[facility] [address] [place], [address] Platelets (Bld) [#/Vol] 216 10*3/uL Normal 150-450 [facility] Comment on above: Order Comment: 109.1 Performed By: #### L 100.0100 ####[facility] [address] [place], [address] RBC (Bld) [#/Vol] 4.64 10*6/uL Normal 4.6-6.2 [facility] Comment on above: Order Comment: 109.1 Performed By: #### L 100.0100 ####[facility] [address] [place], [address] RDW SD 41.9 fl Normal 35.1-43.9 [facility] Comment on above: Order Comment: 109.1 Performed By: #### L 100.0100 ####[facility] [address] [place], [address] WBC (Bld) [#/Vol] 8.1 10*3/uL Normal 4.4-11.0 [facility] Comment on above: Order Comment: 109.1 Performed By: #### L 100.0100 ####[facility] [address] [place], [address] CBC W/Diff, Automatedon 10-2 -2023 Absolute Lymph 2.15 X10 3/uL Normal 0.83-4.51 [facility] Comment on above: Order Comment: 109.1 Performed By: #### L 100.0100 ####[facility] [address] [place], [address] Absolute Neut 7.1 X10 3/uL Normal 2.0-7.7 [facility] Comment on above: Order Comment: 109.1 Performed By: #### L 100.0100 ####[facility] [address] [place], [address] Basophils/100 WBC (Bld) 0.4 % Normal 0-1 [facility] Comment on above: Order Comment: 109.1 Performed By: #### L 100.0100 ####[facility] [address] [place], [address] Eosinophils/100 WBC (Bld) 0.6 % Normal 0-5 [facility] Comment on above: Order Comment: 109.1 Performed By: #### L 100.0100 ####[facility] [address], [address] Erythrocyte distribution width (RBC) [Ratio] 12.6 % Normal 11.6-14.6 [facility] Comment on above: Order Comment: 109.1 Performed By: #### L 100.0100 ####[facility] [address] [place], [address] Hematocrit (Bld) [Volume fraction] 40.2 % Normal 40-54 [facility] Comment on above: Order Comment: 109.1 Performed By: #### L 100.0100 ####[facility] [address] [place], [address] Hemoglobin (Bld) [Mass/Vol] 13.6 g/dL Normal 13.0-16.5 [facility] Comment on above: Order Comment: 109.1 Performed By: #### L 100.0100 ####[facility] [address] [place], [address] IG% 0.500 Normal 0.0-0.9 [facility] Comment on above: Order Comment: 109.1 Result Comment: IG% - Immature Granulocytes (promyelocytes, myelocytes andmetamyelocytes) > 1% indicates that a LEFT SHIFT is Present. Performed By: #### L 100.0100 ####[facility] [address] [place], [address] Lymphocytes/100 WBC (Bld) 20.9 % Normal 19-41 [facility] Comment on above: Order Comment: 109.1 Performed By: #### L 100.0100 ####[facility] [address] [place], [address] MCH (RBC) [Entitic mass] 30.6 pg Normal 27.0-32.0 [facility] Comment on above: Order Comment: 109.1 Performed By: #### L 100.0100 ####[facility] [address] [place], [address] MCHC (RBC) [Mass/Vol] 33.8 g/dL Normal 32-36 [facility] Comment on above: Order Comment: 109.1 Performed By: #### L 100.0100 ####[facility] [address] [place], [address] MCV (RBC) [Entitic vol] 90.5 fL Normal 80-94 [facility] Comment on above: Order Comment: 109.1 Performed By: #### L 100.0100 ####[facility] [address], [address] Monocytes/100 WBC (Bld) 8.5 % Normal 0-10 [facility] Comment on above: Order Comment: 109.1 Performed By: #### L 100.0100 ####[facility] [address] [place], [address] Neutrophils/100 WBC (Bld) 69.1 % Normal 47-70 [facility] Comment on above: Order Comment: 109.1 Performed By: #### L 100.0100 ####[facility] [address] [place], [address] Nucleated RBC (Bld) [#/Vol] 0 10*3/uL Normal 0-5 [facility] Comment on above: Order Comment: 109.1 Performed By: #### L 100.0100 ####[facility] [address] [place], [address] Platelet mean volume (Bld) [Entitic vol] 11.2 fL Normal 6.2-12.0 [facility] Comment on above: Order Comment: 109.1 Performed By: #### L 100.0100 ####[facility] [address] [place], [address] Platelets (Bld) [#/Vol] 226 10*3/uL Normal 150-450 [facility] Comment on above: Order Comment: 109.1 Performed By: #### L 100.0100 ####[facility] [address] [place], [address] RBC (Bld) [#/Vol] 4.44 10*6/uL Low 4.6-6.2 [facility] Comment on above: Order Comment: 109.1 Performed By: #### L 100.0100 ####[facility] [address] [place], [address] RDW SD 41.5 fl Normal 35.1-43.9 [facility] Comment on above: Order Comment: 109.1 Performed By: #### L 100.0100 ####[facility] [address] [place], [address] WBC (Bld) [#/Vol] 10.3 10*3/uL Normal 4.4-11.0 [facility] Comment on above: Order Comment: 109.1 Performed By: #### L 100.0100 ####[facility] [address] [place], [address] CBC-Complete Blood Cnt No Di ffon 02-23-2024 Erythrocyte distribution width (RBC) [Ratio] 12.9 % Normal 11.6-14.6 [facility] Comment on above: Order Comment: 109-1 Performed By: #### L 100.0500, L500.4100, L500.4050 ####[facility] [address] [place], [address] Hematocrit (Bld) [Volume fraction] 41.6 % Normal 40-54 [facility] Comment on above: Order Comment: 109-1 Performed By: #### L 100.0500, L500.4100, L500.4050 ####[facility] [address] [place], [address] Hemoglobin (Bld) [Mass/Vol] 14.0 g/dL Normal 13.0-16.5 [facility] Comment on above: Order Comment: 109-1 Performed By: #### L 100.0500, L500.4100, L500.4050 ####[facility] [address] [place], [address] MCH (RBC) [Entitic mass] 30.6 pg Normal 27.0-32.0 [facility] Comment on above: Order Comment: 109-1 Performed By: #### L 100.0500, L500.4100, L500.4050 ####[facility] [address] [place], [address] MCHC (RBC) [Mass/Vol] 33.7 g/dL Normal 32-36 [facility] Comment on above: Order Comment: 109-1 Performed By: #### L 100.0500, L500.4100, L500.4050 ####[facility] [address] [place], [address] MCV (RBC) [Entitic vol] 91.0 fL Normal 80-94 [facility] Comment on above: Order Comment: 109-1 Performed By: #### L 100.0500, L500.4100, L500.4050 ####[facility] [address] [place], [address] Platelet mean volume (Bld) [Entitic vol] 11.5 fL Normal 6.2-12.0 [facility] Comment on above: Order Comment: 109-1 Performed By: #### L 100.0500, L500.4100, L500.4050 ####[facility] [address] [place], [address] Platelets (Bld) [#/Vol] 209 10*3/uL Normal 150-450 [facility] Comment on above: Order Comment: 109-1 Performed By: #### L 100.0500, L500.4100, L500.4050 ####[facility] [address] [place], [address] RBC (Bld) [#/Vol] 4.57 10*6/uL Low 4.6-6.2 [facility] Comment on above: Order Comment: 109-1 Performed By: #### L 100.0500, L500.4100, L500.4050 ####[facility] [address] [place], [address] RDW SD 42.4 fl Normal 35.1-43.9 [facility] Comment on above: Order Comment: 109-1 Performed By: #### L 100.0500, L500.4100, L500.4050 ####[facility] [address] [place], [address] WBC (Bld) [#/Vol] 8.4 10*3/uL Normal 4.4-11.0 [facility] Comment on above: Order Comment: 109-1 Performed By: #### L 100.0500, L500.4100, L500.4050 ####[facility] [address] [place], [address] Comprehensive Metabolic Prof ilon 02-23-2024 Albumin [Mass/Vol] 3.1 g/dL Low 3.2-5.0 [facility] Comment on above: Order Comment: 109-1 Performed By: #### L 100.0500, L500.4100, L500.4050 ####[facility] [address] [place], [address] Albumin/Globulin [Mass ratio] 1.1 {ratio} Normal 0.9-2.4 [facility] Comment on above: Order Comment: 109-1 Performed By: #### L 100.0500, L500.4100, L500.4050 ####[facility] [address] [place], [address] ALK P 123 U/L High 45-117 [facility] Comment on above: Order Comment: 109-1 Performed By: #### L 100.0500, L500.4100, L500.4050 ####[facility] [address] [place], [address] ALT [Catalytic activity/Vol] 16 U/L Normal 16-61 [facility] Comment on above: Order Comment: 109-1 Performed By: #### L 100.0500, L500.4100, L500.4050 ####[facility] [address] [place], [address] AST [Catalytic activity/Vol] 10 U/L Low 15-37 [facility] Comment on above: Order Comment: 109-1 Performed By: #### L 100.0500, L500.4100, L500.4050 ####[facility] [address] [place], [address] Bilirubin [Mass/Vol] 0.50 mg/dL Normal 0.20-1.00 [facility] Comment on above: Order Comment: 109-1 Result Comment: For patients on eltrombopag therapy, use of Dimension [place] TBIL is not recommended. Performed By: #### L 100.0500, L500.4100, L500.4050 ####[facility] [address] [place], [address] BUN/CRE 24.9 RATIO High 10-20 [facility] Comment on above: Order Comment: 109-1 Performed By: #### L 100.0500, L500.4100, L500.4050 ####[facility] [address] [place], [address] CA,Total 8.5 mg/dL Normal 8.5-10.1 [facility] Comment on above: Order Comment: 109-1 Performed By: #### L 100.0500, L500.4100, L500.4050 ####[facility] [address] [place], [address] Chloride [Moles/Vol] 109 mmol/L High 98-107 [facility] Comment on above: Order Comment: 109-1 Performed By: #### L 100.0500, L500.4100, L500.4050 ####[facility] [address] [place], [address] CO2 [Moles/Vol] 27.0 mmol/L Normal 21.0-32.0 [facility] Comment on above: Order Comment: 109-1 Performed By: #### L 100.0500, L500.4100, L500.4050 ####[facility] [address] [place], [address] Creatinine [Mass/Vol] 0.64 mg/dL Low 0.70-1.30 [facility] Comment on above: Order Comment: 109-1 Result Comment: The validity of the calculated GFR GFRAA in patients over70 years has not been determined. Clinical correlation isessential. Performed By: #### L 100.0500, L500.4100, L500.4050 ####[facility] [address] [place], [address] EST GFR - AA 160 mL/min Normal >60 [facility] Comment on above: Order Comment: -1 Result Comment: Afri can Haitian GFR Calc Performed By: #### L 100.0500, L500.4100, L500.4050 ####[facility] [address] [place], [address] GAP 6 Normal 5-15 [facility] Comment on above: Order Comment: 109-1 Performed By: #### L 100.0500, L500.4100, L500.4050 ####[facility] [address] [place], [address] GFR/1.73 sq M.predicted among non-blacks MDRD (S/P/Bld) [Vol rate/Area] 132 mL/min/{1.73_m2} Normal >60 [facility] Comment on above: Order Comment: 109-1 Result Comment: Non- GFR Calc Performed By: #### L 100.0500, L500.4100, L500.4050 ####[facility] [address] [place], [address] Globulin (S) [Mass/Vol] 2.9 g/dL Normal 2.2-4.2 [facility] Comment on above: Order Comment: 109-1 Performed By: #### L 100.0500, L500.4100, L500.4050 ####[facility] [address] [place], [address] Glucose [Mass/Vol] 111 mg/dL High 74-106 [facility] Comment on above: Order Comment: 109-1 Result Comment: Fast ing Glucose result from 100 to 125 mg/dLsuggests IMPAIRED HOMEOSTASIS per A.D.A. criteria. Performed By: #### L 100.0500, L500.4100, L500.4050 ####[facility] [address] [place], [address] Potassium [Moles/Vol] 3.6 mmol/L Normal 3.5-5.1 [facility] Comment on above: Order Comment: 109-1 Performed By: #### L 100.0500, L500.4100, L500.4050 ####[facility] [address] [place], [address] Sodium [Moles/Vol] 141 mmol/L Normal 136-145 [facility] Comment on above: Order Comment: 109-1 Performed By: #### L 100.0500, L500.4100, L500.4050 ####[facility] [address] [place], [address] T PROT 6.0 g/dL Low 6.4-8.2 [facility] Comment on above: Order Comment: 109-1 Performed By: #### L 100.0500, L500.4100, L500.4050 ####[facility] [address] [place], [address] Urea nitrogen [Mass/Vol] 16 mg/dL Normal 7-18 [facility] Comment on above: Order Comment: 109-1 Performed By: #### L 100.0500, L500.4100, L500.4050 ####[facility] [address] [place], [address] Lipid Profileon 02-23-2024 Cholesterol [Mass/Vol] 123 mg/dL Normal 200 [facility] Comment on above: Order Comment: 109 Result Comment: <200 mg/dL Desirable 200-240 mg/dL Borderline >240 mg/dL High Risk Performed By: #### L 100.0500, L500.4100, L500.4050 ####[facility] [address] [place], [address] Cholesterol in HDL [Mass/Vol] 28 mg/dL Low [facility] Comment on above: Order Comment: Result Comment: The drugs N-Acetylcysteine and Metamizole may falselydepress this assay. Reference Range HDL <40 mg/dL Low HDL Cholesterol HDL >or= 60 mg/dL High HDL Cholesterol Performed By: #### L 100.0500, L500.4100, L500.4050 ####[facility] [address] [place], [address] Cholesterol in LDL [Mass/Vol] 71 mg/dL Normal 0-130 [facility] Comment on above: Order Comment: Performed By: #### L 100.0500, L500.4100, L500.4050 ####[facility] [address] [place], [address] Cholesterol in VLDL [Mass/Vol] 24 mg/dL Normal 5-40 [facility] Comment on above: Order Comment: Performed By: #### L 100.0500, L500.4100, L500.4050 ####[facility] [address] [place], [address] Triglyceride [Mass/Vol] 119 mg/dL Normal [facility] Comment on above: Order Comment: Result Comment: The drugs N-Acetylcysteine and Metamizole may falselydepress this assay.Serum Triglycerides Reference Interval Normal <150 mg/dL Borderline high 150 - 199 mg/dL High 200 - 499 mg/dL Very High > or = 500 mg/dL Performed By: #### L 100.0500, L500.4100, L500.4050 ####[facility] [address] [place], [address] CBC W/Diff, Automatedon 10-2 Absolute Lymph 1.92 X10 3/uL Normal 0.83-4.51 [facility] Comment on above: Order Comment: 109-1 Performed By: #### L 100.0100 ####[facility] [address] [place], [address] Absolute Neut 6.9 X10 3/uL Normal 2.0-7.7 [facility] Comment on above: Order Comment: 109-1 Performed By: #### L 100.0100 ####[facility] [address] [place], [address] Basophils/100 WBC (Bld) 0.4 % Normal 0-1 [facility] Comment on above: Order Comment: 109-1 Performed By: #### L 100.0100 ####[facility] [address] [place], [address] Eosinophils/100 WBC (Bld) 0.6 % Normal 0-5 [facility] Comment on above: Order Comment: 109-1 Performed By: #### L 100.0100 ####[facility] [address] [place], [address] Erythrocyte distribution width (RBC) [Ratio] 12.9 % Normal 11.6-14.6 [facility] Comment on above: Order Comment: 109-1 Performed By: #### L 100.0100 ####[facility] [address] [place], [address] Hematocrit (Bld) [Volume fraction] 40.4 % Normal 40-54 [facility] Comment on above: Order Comment: 109-1 Performed By: #### L 100.0100 ####[facility] [address] [place], [address] Hemoglobin (Bld) [Mass/Vol] 13.3 g/dL Normal 13.0-16.5 [facility] Comment on above: Order Comment: 109-1 Performed By: #### L 100.0100 ####[facility] [address] [place], [address] IG% 0.300 Normal 0.0-0.9 [facility] Comment on above: Order Comment: 109-1 Result Comment: IG% - Immature Granulocytes (promyelocytes, myelocytes andmetamyelocytes) > 1% indicates that a LEFT SHIFT is Present. Performed By: #### L 100.0100 ####[facility] [address] [place], [address] Lymphocytes/100 WBC (Bld) 20.1 % Normal 19-41 [facility] Comment on above: Order Comment: 109-1 Performed By: #### L 100.0100 ####[facility] [address] [place], [address] MCH (RBC) [Entitic mass] 30.2 pg Normal 27.0-32.0 [facility] Comment on above: Order Comment: 109-1 Performed By: #### L 100.0100 ####[facility] [address] [place], [address] MCHC (RBC) [Mass/Vol] 32.9 g/dL Normal 32-36 [facility] Comment on above: Order Comment: 109-1 Performed By: #### L 100.0100 ####[facility] [address] [place], [address] MCV (RBC) [Entitic vol] 91.6 fL Normal 80-94 [facility] Comment on above: Order Comment: 109-1 Performed By: #### L 100.0100 ####[facility] [address] [place], [address] Monocytes/100 WBC (Bld) 6.8 % Normal 0-10 [facility] Comment on above: Order Comment: 109-1 Performed By: #### L 100.0100 ####[facility] [address] [place], [address] Neutrophils/100 WBC (Bld) 71.8 % High 47-70 [facility] Comment on above: Order Comment: 109-1 Performed By: #### L 100.0100 ####[facility] [address] [place], [address] Nucleated RBC (Bld) [#/Vol] 0 10*3/uL Normal 0-5 [facility] Comment on above: Order Comment: 109-1 Performed By: #### L 100.0100 ####[facility] [address] [place], [address] Platelet mean volume (Bld) [Entitic vol] 10.9 fL Normal 6.2-12.0 [facility] Comment on above: Order Comment: 109-1 Performed By: #### L 100.0100 ####[facility] [address] [place], [address] Platelets (Bld) [#/Vol] 209 10*3/uL Normal 150-450 [facility] Comment on above: Order Comment: 109-1 Performed By: #### L 100.0100 ####[facility] [address] [place], [address] RBC (Bld) [#/Vol] 4.41 10*6/uL Low 4.6-6.2 [facility] Comment on above: Order Comment: 109-1 Performed By: #### L 100.0100 ####[facility] [address] [place], [address] RDW SD 42.8 fl Normal 35.1-43.9 [facility] Comment on above: Order Comment: 109-1 Performed By: #### L 100.0100 ####[facility] [address] [place], [address] WBC (Bld) [#/Vol] 9.6 10*3/uL Normal 4.4-11.0 [facility] Comment on above: Order Comment: 109-1 Performed By: #### L 100.0100 ####[facility] [address] [place], [address] CBC W/Diff, Automatedon 10-05 04-2023 Absolute Lymph 2.08 X10 3/uL Normal 0.83-4.51 [facility] Comment on above: Order Comment: 109.1 Performed By: #### L 100.0100 ####[facility] [address] [place], [address] Absolute Neut 6.9 X10 3/uL Normal 2.0-7.7 [facility] Comment on above: Order Comment: 109.1 Performed By: #### L 100.0100 ####[facility] [address] [place], [address] Basophils/100 WBC (Bld) 0.5 % Normal 0-1 [facility] Comment on above: Order Comment: 109.1 Performed By: #### L 100.0100 ####[facility] [address] [place], [address] Eosinophils/100 WBC (Bld) 0.3 % Normal 0-5 [facility] Comment on above: Order Comment: 109.1 Performed By: #### L 100.0100 ####[facility] [address] [place], [address] Erythrocyte distribution width (RBC) [Ratio] 12.8 % Normal 11.6-14.6 [facility] Comment on above: Order Comment: 109.1 Performed By: #### L 100.0100 ####[facility] [address] [place], [address] Hematocrit (Bld) [Volume fraction] 40.6 % Normal 40-54 [facility] Comment on above: Order Comment: 109.1 Performed By: #### L 100.0100 ####[facility] [address] [place], [address] Hemoglobin (Bld) [Mass/Vol] 13.1 g/dL Normal 13.0-16.5 [facility] Comment on above: Order Comment: 109.1 Performed By: #### L 100.0100 ####[facility] [address] [place], [address] IG% 0.300 Normal 0.0-0.9 [facility] Comment on above: Order Comment: 109.1 Result Comment: IG% - Immature Granulocytes (promyelocytes, myelocytes andmetamyelocytes) > 1% indicates that a LEFT SHIFT is Present. Performed By: #### L 100.0100 ####[facility] [address] [place], [address] Lymphocytes/100 WBC (Bld) 21.2 % Normal 19-41 [facility] Comment on above: Order Comment: 109.1 Performed By: #### L 100.0100 ####[facility] [address] [place], [address] MCH (RBC) [Entitic mass] 29.8 pg Normal 27.0-32.0 [facility] Comment on above: Order Comment: 109.1 Performed By: #### L 100.0100 ####[facility] [address] [place], [address] MCHC (RBC) [Mass/Vol] 32.3 g/dL Normal 32-36 [facility] Comment on above: Order Comment: 109.1 Performed By: #### L 100.0100 ####[facility] [address] [place], [address] MCV (RBC) [Entitic vol] 92.5 fL Normal 80-94 [facility] Comment on above: Order Comment: 109.1 Performed By: #### L 100.0100 ####[facility] [address] [place], [address] Monocytes/100 WBC (Bld) 7.6 % Normal 0-10 [facility] Comment on above: Order Comment: 109.1 Performed By: #### L 100.0100 ####[facility] [address] [place], [address] Neutrophils/100 WBC (Bld) 70.1 % High 47-70 [facility] Comment on above: Order Comment: 109.1 Performed By: #### L 100.0100 ####[facility] [address] [place], [address] Nucleated RBC (Bld) [#/Vol] 0 10*3/uL Normal 0-5 [facility] Comment on above: Order Comment: 109.1 Performed By: #### L 100.0100 ####[facility] [address] [place], [address] Platelet mean volume (Bld) [Entitic vol] 10.8 fL Normal 6.2-12.0 [facility] Comment on above: Order Comment: 109.1 Performed By: #### L 100.0100 ####[facility] [address] [place], [address] Platelets (Bld) [#/Vol] 221 10*3/uL Normal 150-450 [facility] Comment on above: Order Comment: 109.1 Performed By: #### L 100.0100 ####[facility] [address] [place], [address] RBC (Bld) [#/Vol] 4.39 10*6/uL Low 4.6-6.2 [facility] Comment on above: Order Comment: 109.1 Performed By: #### L 100.0100 ####[facility] [address] [place], [address] RDW SD 43.4 fl Normal 35.1-43.9 [facility] Comment on above: Order Comment: 109.1 Performed By: #### L 100.0100 ####[facility] [address] [place], [address] WBC (Bld) [#/Vol] 9.8 10*3/uL Normal 4.4-11.0 [facility] [facility] Comment on above: Order Comment: 109.1 Performed By: #### L 100.0100 ####[facility] [address] [place], [address] CBC W/Diff, Automatedon 10-0 7-2024 Absolute Lymph 2.06 X10 3/uL Normal 0.83-4.51 [facility] Comment on above: Order Comment: 109.1 Performed By: #### L 100.0100 ####[facility] [address] [place], [address] Absolute Neut 4.8 X10 3/uL Normal 2.0-7.7 [facility] Comment on above: Order Comment: 109.1 Performed By: #### L 100.0100 ####[facility] [address] [place], [address] Basophils/100 WBC (Bld) 0.7 % Normal 0-1 [facility] Comment on above: Order Comment: 109.1 Performed By: #### L 100.0100 ####[facility] [address] [place], [address] Eosinophils/100 WBC (Bld) 0.5 % Normal 0-5 [facility] Comment on above: Order Comment: 109.1 Performed By: #### L 100.0100 ####[facility] [address] [place], [address] Erythrocyte distribution width (RBC) [Ratio] 13.2 % Normal 11.6-14.6 [facility] Comment on above: Order Comment: 109.1 Performed By: #### L 100.0100 ####[facility] [address] [place], [address] Hematocrit (Bld) [Volume fraction] 42.7 % Normal 40-54 [facility] Comment on above: Order Comment: 109.1 Performed By: #### L 100.0100 ####[facility] [address] [place], [address] Hemoglobin (Bld) [Mass/Vol] 13.5 g/dL Normal 13.0-16.5 [facility] Comment on above: Order Comment: 109.1 Performed By: #### L 100.0100 ####[facility] [address] [place], [address] IG% 0.400 Normal 0.0-0.9 [facility] Comment on above: Order Comment: 109.1 Result Comment: IG% - Immature Granulocytes (promyelocytes, myelocytes andmetamyelocytes) > 1% indicates that a LEFT SHIFT is Present. Performed By: #### L 100.0100 ####[facility] [address] [place], [address] Lymphocytes/100 WBC (Bld) 26.9 % Normal 19-41 [facility] Comment on above: Order Comment: 109.1 Performed By: #### L 100.0100 ####[facility] [address] [place], [address] MCH (RBC) [Entitic mass] 29.3 pg Normal 27.0-32.0 [facility] Comment on above: Order Comment: 109.1 Performed By: #### L 100.0100 ####[facility] [address] [place], [address] MCHC (RBC) [Mass/Vol] 31.6 g/dL Low 32-36 [facility] Comment on above: Order Comment: 109.1 Performed By: #### L 100.0100 ####[facility] [address] [place], [address] MCV (RBC) [Entitic vol] 92.8 fL Normal 80-94 [facility] Comment on above: Order Comment: 109.1 Performed By: #### L 100.0100 ####[facility] [address] [place], [address] Monocytes/100 WBC (Bld) 9.3 % Normal 0-10 [facility] Comment on above: Order Comment: 109.1 Performed By: #### L 100.0100 ####[facility] [address] [place], [address] Neutrophils/100 WBC (Bld) 62.2 % Normal 47-70 [facility] Comment on above: Order Comment: 109.1 Performed By: #### L 100.0100 ####[facility] [address] [place], [address] Nucleated RBC (Bld) [#/Vol] 0 10*3/uL Normal 0-5 [facility] Comment on above: Order Comment: 109.1 Performed By: #### L 100.0100 ####[facility] [address] [place], [address] Platelet mean volume (Bld) [Entitic vol] 11.2 fL Normal 6.2-12.0 [facility] Comment on above: Order Comment: 109.1 Performed By: #### L 100.0100 ####[facility] [address] [place], [address] Platelets (Bld) [#/Vol] 192 10*3/uL Normal 150-450 [facility] Comment on above: Order Comment: 109.1 Performed By: #### L 100.0100 ####[facility] [address] [place], [address] RBC (Bld) [#/Vol] 4.60 10*6/uL Normal 4.6-6.2 [facility] Comment on above: Order Comment: 109.1 Performed By: #### L 100.0100 ####[facility] [address] [place], [address] RDW SD 44.9 fl High 35.1-43.9 [facility] Comment on above: Order Comment: 109.1 Performed By: #### L 100.0100 ####[facility] [address] [place], [address] WBC (Bld) [#/Vol] 7.7 10*3/uL Normal 4.4-11.0 [facility] Comment on above: Order Comment: 109.1 Performed By: #### L 100.0100 ####[facility] [address] [place], [address] CBC W/Diff, Automatedon 09-3 0-2024 Absolute Lymph 2.12 X10 3/uL Normal 0.83-4.51 [facility] Comment on above: Order Comment: 109.1 Performed By: #### L 100.0100 ####[facility] [address] [place], [address] Absolute Neut 5.2 X10 3/uL Normal 2.0-7.7 [facility] Comment on above: Order Comment: 109.1 Performed By: #### L 100.0100 ####[facility] [address] [place], [address] Basophils/100 WBC (Bld) 0.6 % Normal 0-1 [facility] Comment on above: Order Comment: 109.1 Performed By: #### L 100.0100 ####[facility] [address] [place], [address] Eosinophils/100 WBC (Bld) 0.5 % Normal 0-5 [facility] Comment on above: Order Comment: 109.1 Performed By: #### L 100.0100 ####[facility] [address] [place], [address] Erythrocyte distribution width (RBC) [Ratio] 13.2 % Normal 11.6-14.6 [facility] Comment on above: Order Comment: 109.1 Performed By: #### L 100.0100 ####[facility] [address] [place], [address] Hematocrit (Bld) [Volume fraction] 46.0 % Normal 40-54 [facility] Comment on above: Order Comment: 109.1 Performed By: #### L 100.0100 ####[facility] [address] [place], [address] Hemoglobin (Bld) [Mass/Vol] 14.5 g/dL Normal 13.0-16.5 [facility] Comment on above: Order Comment: 109.1 Performed By: #### L 100.0100 ####[facility] [address] [place], [address] IG% 0.200 Normal 0.0-0.9 [facility] Comment on above: Order Comment: 109.1 Result Comment: IG% - Immature Granulocytes (promyelocytes, myelocytes andmetamyelocytes) > 1% indicates that a LEFT SHIFT is Present. Performed By: #### L 100.0100 ####[facility] [address], [address] Lymphocytes/100 WBC (Bld) 25.9 % Normal 19-41 [facility] Comment on above: Order Comment: 109.1 Performed By: #### L 100.0100 ####[facility] [address] [place], [address] MCH (RBC) [Entitic mass] 29.2 pg Normal 27.0-32.0 [facility] Comment on above: Order Comment: 109.1 Performed By: #### L 100.0100 ####[facility] [address] [place], [address] MCHC (RBC) [Mass/Vol] 31.5 g/dL Low 32-36 [facility] Comment on above: Order Comment: 109.1 Performed By: #### L 100.0100 ####[facility] [address] [place], [address] MCV (RBC) [Entitic vol] 92.7 fL Normal 80-94 [facility] Comment on above: Order Comment: 109.1 Performed By: #### L 100.0100 ####[facility] [address] [place], [address] Monocytes/100 WBC (Bld) 9.0 % Normal 0-10 [facility] Comment on above: Order Comment: 109.1 Performed By: #### L 100.0100 ####[facility] [address] [place], [address] Neutrophils/100 WBC (Bld) 63.8 % Normal 47-70 [facility] Comment on above: Order Comment: 109.1 Performed By: #### L 100.0100 ####[facility] [address] [place], [address] Nucleated RBC (Bld) [#/Vol] 0 10*3/uL Normal 0-5 [facility] Comment on above: Order Comment: 109.1 Performed By: #### L 100.0100 ####[facility] [address] [place], [address] Platelet mean volume (Bld) [Entitic vol] 10.9 fL Normal 6.2-12.0 [facility] Comment on above: Order Comment: 109.1 Performed By: #### L 100.0100 ####[facility] [address] [place], [address] Platelets (Bld) [#/Vol] 192 10*3/uL Normal 150-450 [facility] Comment on above: Order Comment: 109.1 Performed By: #### L 100.0100 ####[facility] [address] [place], [address] RBC (Bld) [#/Vol] 4.96 10*6/uL Normal 4.6-6.2 [facility] Comment on above: Order Comment: 109.1 Performed By: #### L 100.0100 ####[facility] [address] [place], [address] RDW SD 44.6 fl High 35.1-43.9 [facility] Comment on above: Order Comment: 109.1 Performed By: #### L 100.0100 ####[facility] [address] [place], [address] WBC (Bld) [#/Vol] 8.2 10*3/uL Normal 4.4-11.0 [facility] Comment on above: Order Comment: 109.1 Performed By: #### L 100.0100 ####[facility] [address] [place], [address] CBC W/Diff, Automatedon 09-2 -2023 Absolute Lymph 1.62 X10 3/uL Normal 0.83-4.51 [facility] Comment on above: Order Comment: 109-1 Performed By: #### L 100.0100 ####[facility] [address] [place], [address] Absolute Neut 8.1 X10 3/uL High 2.0-7.7 [facility] Comment on above: Order Comment: 109-1 Performed By: #### L 100.0100 ####[facility] [address] [place], [address] Basophils/100 WBC (Bld) 0.4 % Normal 0-1 [facility] Comment on above: Order Comment: 109-1 Performed By: #### L 100.0100 ####[facility] [address] [place], [address] Eosinophils/100 WBC (Bld) 0.1 % Normal 0-5 [facility] Comment on above: Order Comment: 109-1 Performed By: #### L 100.0100 ####[facility] [address] [place], [address] Erythrocyte distribution width (RBC) [Ratio] 12.9 % Normal 11.6-14.6 [facility] Comment on above: Order Comment: 109-1 Performed By: #### L 100.0100 ####[facility] [address] [place], [address] Hematocrit (Bld) [Volume fraction] 41.9 % Normal 40-54 [facility] Comment on above: Order Comment: 109-1 Performed By: #### L 100.0100 ####[facility] [address] [place], [address] Hemoglobin (Bld) [Mass/Vol] 13.5 g/dL Normal 13.0-16.5 [facility] Comment on above: Order Comment: 109-1 Performed By: #### L 100.0100 ####[facility] [address] [place], [address] IG% 0.400 Normal 0.0-0.9 [facility] Comment on above: Order Comment: 109-1 Result Comment: IG% - Immature Granulocytes (promyelocytes, myelocytes andmetamyelocytes) > 1% indicates that a LEFT SHIFT is Present. Performed By: #### L 100.0100 ####[facility] [address] [place], [address] Lymphocytes/100 WBC (Bld) 15.2 % Low 19-41 [facility] Comment on above: Order Comment: 109-1 Performed By: #### L 100.0100 ####[facility] [address] [place], [address] MCH (RBC) [Entitic mass] 29.3 pg Normal 27.0-32.0 [facility] Comment on above: Order Comment: 109-1 Performed By: #### L 100.0100 ####[facility] [address] [place], [address] MCHC (RBC) [Mass/Vol] 32.2 g/dL Normal 32-36 [facility] Comment on above: Order Comment: 109-1 Performed By: #### L 100.0100 ####[facility] [address] [place], [address] MCV (RBC) [Entitic vol] 90.9 fL Normal 80-94 [facility] Comment on above: Order Comment: 109-1 Performed By: #### L 100.0100 ####[facility] [address] [place], [address] Monocytes/100 WBC (Bld) 7.4 % Normal 0-10 [facility] Comment on above: Order Comment: 109-1 Performed By: #### L 100.0100 ####[facility] [address] [place], [address] Neutrophils/100 WBC (Bld) 76.5 % High 47-70 [facility] Comment on above: Order Comment: 109-1 Performed By: #### L 100.0100 ####[facility] [address] [place], [address] Nucleated RBC (Bld) [#/Vol] 0 10*3/uL Normal 0-5 [facility] Comment on above: Order Comment: 109-1 Performed By: #### L 100.0100 ####[facility] [address] [place], [address] Platelet mean volume (Bld) [Entitic vol] 11.2 fL Normal 6.2-12.0 [facility] Comment on above: Order Comment: 109-1 Performed By: #### L 100.0100 ####[facility] [address] [place], [address] Platelets (Bld) [#/Vol] 220 10*3/uL Normal 150-450 [facility] Comment on above: Order Comment: 109-1 Performed By: #### L 100.0100 ####[facility] [address] [place], [address] RBC (Bld) [#/Vol] 4.61 10*6/uL Normal 4.6-6.2 [facility] Comment on above: Order Comment: 109-1 Performed By: #### L 100.0100 ####[facility] [address] [place], [address] RDW SD 42.1 fl Normal 35.1-43.9 [facility] Comment on above: Order Comment: 109-1 Performed By: #### L 100.0100 ####[facility] [address] [place], [address] WBC (Bld) [#/Vol] 10.6 10*3/uL Normal 4.4-11.0 [facility] Comment on above: Order Comment: 109-1 Performed By: #### L 100.0100 ####[facility] [address] [place], [address] CBC W/Diff, Automatedon - Absolute Lymph 2.15 X10 3/uL Normal 0.83-4.51 [facility] Comment on above: Order Comment: 109-1 Performed By: #### L 100.0100 ####[facility] [address] [place], [address] Absolute Neut 5.4 X10 3/uL Normal 2.0-7.7 [facility] Comment on above: Order Comment: 109-1 Performed By: #### L 100.0100 ####[facility] [address] [place], [address] Basophils/100 WBC (Bld) 0.7 % Normal 0-1 [facility] Comment on above: Order Comment: 109-1 Performed By: #### L 100.0100 ####[facility] [address] [place], [address] Eosinophils/100 WBC (Bld) 0.7 % Normal 0-5 [facility] Comment on above: Order Comment: 109-1 Performed By: #### L 100.0100 ####[facility] [address] [place], [address] Erythrocyte distribution width (RBC) [Ratio] 13.1 % Normal 11.6-14.6 [facility] Comment on above: Order Comment: 109-1 Performed By: #### L 100.0100 ####[facility] [address] [place], [address] Hematocrit (Bld) [Volume fraction] 44.1 % Normal 40-54 [facility] Comment on above: Order Comment: 109-1 Performed By: #### L 100.0100 ####[facility] [address] [place], [address] Hemoglobin (Bld) [Mass/Vol] 14.2 g/dL Normal 13.0-16.5 [facility] Comment on above: Order Comment: 109-1 Performed By: #### L 100.0100 ####[facility] [address] [place], [address] IG% 0.400 Normal 0.0-0.9 [facility] Comment on above: Order Comment: 109-1 Result Comment: IG% - Immature Granulocytes (promyelocytes, myelocytes andmetamyelocytes) > 1% indicates that a LEFT SHIFT is Present. Performed By: #### L 100.0100 ####[facility] [address] [place], [address] Lymphocytes/100 WBC (Bld) 25.7 % Normal 19-41 [facility] Comment on above: Order Comment: 109-1 Performed By: #### L 100.0100 ####[facility] [address] [place], [address] MCH (RBC) [Entitic mass] 29.5 pg Normal 27.0-32.0 [facility] Comment on above: Order Comment: 109-1 Performed By: #### L 100.0100 ####[facility] [address] [place], [address] MCHC (RBC) [Mass/Vol] 32.2 g/dL Normal 32-36 [facility] Comment on above: Order Comment: 109-1 Performed By: #### L 100.0100 ####[facility] [address] [place], [address] MCV (RBC) [Entitic vol] 91.7 fL Normal 80-94 [facility] Comment on above: Order Comment: 109-1 Performed By: #### L 100.0100 ####[facility] [address] [place], [address] Monocytes/100 WBC (Bld) 7.5 % Normal 0-10 [facility] Comment on above: Order Comment: 109-1 Performed By: #### L 100.0100 ####[facility] [address] [place], [address] Neutrophils/100 WBC (Bld) 65.0 % Normal 47-70 [facility] Comment on above: Order Comment: 109-1 Performed By: #### L 100.0100 ####[facility] [address] [place], [address] Nucleated RBC (Bld) [#/Vol] 0 10*3/uL Normal 0-5 [facility] Comment on above: Order Comment: 109-1 Performed By: #### L 100.0100 ####[facility] [address] [place], [address] Platelet mean volume (Bld) [Entitic vol] 11.1 fL Normal 6.2-12.0 [facility] Comment on above: Order Comment: 109-1 Performed By: #### L 100.0100 ####[facility] [address] [place], [address] Platelets (Bld) [#/Vol] 200 10*3/uL Normal 150-450 [facility] Comment on above: Order Comment: 109-1 Performed By: #### L 100.0100 ####[facility] [address] [place], [address] RBC (Bld) [#/Vol] 4.81 10*6/uL Normal 4.6-6.2 [facility] Comment on above: Order Comment: 109-1 Performed By: #### L 100.0100 ####[facility] [address] [place], [address] RDW SD 44.1 fl High 35.1-43.9 [facility] Comment on above: Order Comment: 109-1 Performed By: #### L 100.0100 ####[facility] [address] [place], [address] WBC (Bld) [#/Vol] 8.4 10*3/uL Normal 4.4-11.0 [facility] Comment on above: Order Comment: 109-1 Performed By: #### L 100.0100 ####[facility] [address] [place], [address] CBC W/Diff, Automatedon 09-0 9-4 Absolute Lymph 3.20 X10 3/uL Normal 0.83-4.51 [facility] Comment on above: Order Comment: 109-1 Performed By: #### L 100.0100 ####[facility] [address] [place], [address] Absolute Neut 5.5 X10 3/uL Normal 2.0-7.7 [facility] Comment on above: Order Comment: 109-1 Performed By: #### L 100.0100 ####[facility] [address] [place], [address] Basophils/100 WBC (Bld) 0.5 % Normal 0-1 [facility] Comment on above: Order Comment: 109-1 Performed By: #### L 100.0100 ####[facility] [address] [place], [address] Eosinophils/100 WBC (Bld) 0.6 % Normal 0-5 [facility] Comment on above: Order Comment: 109-1 Performed By: #### L 100.0100 ####[facility] [address] [place], [address] Erythrocyte distribution width (RBC) [Ratio] 13.2 % Normal 11.6-14.6 [facility] Comment on above: Order Comment: 109-1 Performed By: #### L 100.0100 ####[facility] [address] [place], [address] Hematocrit (Bld) [Volume fraction] 44.3 % Normal 40-54 [facility] Comment on above: Order Comment: 109-1 Performed By: #### L 100.0100 ####[facility] [address] [place], [address] Hemoglobin (Bld) [Mass/Vol] 14.4 g/dL Normal 13.0-16.5 [facility] Comment on above: Order Comment: 109-1 Performed By: #### L 100.0100 ####[facility] [address] [place], [address] IG% 0.400 Normal 0.0-0.9 [facility] Comment on above: Order Comment: 109-1 Result Comment: IG% - Immature Granulocytes (promyelocytes, myelocytes andmetamyelocytes) > 1% indicates that a LEFT SHIFT is Present. Performed By: #### L 100.0100 ####[facility] [address] [place], [address] Lymphocytes/100 WBC (Bld) 31.4 % Normal 19-41 [facility] Comment on above: Order Comment: 109-1 Performed By: #### L 100.0100 ####[facility] [address] [place], [address] MCH (RBC) [Entitic mass] 29.8 pg Normal 27.0-32.0 [facility] Comment on above: Order Comment: 109-1 Performed By: #### L 100.0100 ####[facility] [address] [place], [address] MCHC (RBC) [Mass/Vol] 32.5 g/dL Normal 32-36 [facility] Comment on above: Order Comment: 109-1 Performed By: #### L 100.0100 ####[facility] [address] [place], [address] MCV (RBC) [Entitic vol] 91.7 fL Normal 80-94 [facility] Comment on above: Order Comment: 109-1 Performed By: #### L 100.0100 ####[facility] [address] [place], [address] Monocytes/100 WBC (Bld) 12.8 % High 0-10 [facility] Comment on above: Order Comment: 109-1 Performed By: #### L 100.0100 ####[facility] [address] [place], [address] Neutrophils/100 WBC (Bld) 54.3 % Normal 47-70 [facility] Comment on above: Order Comment: 109-1 Performed By: #### L 100.0100 ####[facility] [address] [place], [address] Nucleated RBC (Bld) [#/Vol] 0 10*3/uL Normal 0-5 [facility] Comment on above: Order Comment: 109-1 Performed By: #### L 100.0100 ####[facility] [address] [place], [address] Platelet mean volume (Bld) [Entitic vol] 11.9 fL Normal 6.2-12.0 [facility] Comment on above: Order Comment: 109-1 Performed By: #### L 100.0100 ####[facility] [address] [place], [address] Platelets (Bld) [#/Vol] 187 10*3/uL Normal 150-450 [facility] Comment on above: Order Comment: 109-1 Performed By: #### L 100.0100 ####[facility] [address] [place], [address] RBC (Bld) [#/Vol] 4.83 10*6/uL Normal 4.6-6.2 [facility] Comment on above: Order Comment: 109-1 Performed By: #### L 100.0100 ####[facility] [address] [place], [address] RDW SD 44.3 fl High 35.1-43.9 [facility] Comment on above: Order Comment: 109-1 Performed By: #### L 100.0100 ####[facility] [address] [place], [address] WBC (Bld) [#/Vol] 10.2 10*3/uL Normal 4.4-11.0 [facility] Comment on above: Order Comment: 109-1 Performed By: #### L 100.0100 ####[facility] [address] [place], [address] CBC W/Diff, Automatedon 09-0 3-2023 Absolute Lymph 2.57 X10 3/uL Normal 0.83-4.51 [facility] Comment on above: Order Comment: 109-1 Performed By: #### L 100.0100, L500.4100 ####[facility] [address] [place], [address] Absolute Neut 5.9 X10 3/uL Normal 2.0-7.7 [facility] Comment on above: Order Comment: 109-1 Performed By: #### L 100.0100, L500.4100 ####[facility] [address] [place], [address] Basophils/100 WBC (Bld) 0.5 % Normal 0-1 [facility] Comment on above: Order Comment: 109-1 Performed By: #### L 100.0100, L500.4100 ####[facility] [address] [place], [address] Eosinophils/100 WBC (Bld) 0.4 % Normal 0-5 [facility] Comment on above: Order Comment: 109-1 Performed By: #### L 100.0100, L500.4100 ####[facility] [address] [place], [address] Erythrocyte distribution width (RBC) [Ratio] 13.1 % Normal 11.6-14.6 [facility] Comment on above: Order Comment: 109-1 Performed By: #### L 100.0100, L500.4100 ####[facility] [address] [place], [address] Hematocrit (Bld) [Volume fraction] 40.6 % Normal 40-54 [facility] Comment on above: Order Comment: 109-1 Performed By: #### L 100.0100, L500.4100 ####[facility] [address] [place], [address] Hemoglobin (Bld) [Mass/Vol] 13.3 g/dL Normal 13.0-16.5 [facility] Comment on above: Order Comment: 109-1 Performed By: #### L 100.0100, L500.4100 ####[facility] [address] [place], [address] IG% 0.300 Normal 0.0-0.9 [facility] Comment on above: Order Comment: 109-1 Result Comment: IG% - Immature Granulocytes (promyelocytes, myelocytes andmetamyelocytes) > 1% indicates that a LEFT SHIFT is Present. Performed By: #### L 100.0100, L500.4100 ####[facility] [address] [place], [address] Lymphocytes/100 WBC (Bld) 27.0 % Normal 19-41 [facility] Comment on above: Order Comment: 109-1 Performed By: #### L 100.0100, L500.4100 ####[facility] [address] [place], [address] MCH (RBC) [Entitic mass] 30.2 pg Normal 27.0-32.0 [facility] Comment on above: Order Comment: 109-1 Performed By: #### L 100.0100, L500.4100 ####[facility] [address] [place], [address] MCHC (RBC) [Mass/Vol] 32.8 g/dL Normal 32-36 [facility] Comment on above: Order Comment: 109-1 Performed By: #### L 100.0100, L500.4100 ####[facility] [address] [place], [address] MCV (RBC) [Entitic vol] 92.3 fL Normal 80-94 [facility] Comment on above: Order Comment: 109-1 Performed By: #### L 100.0100, L500.4100 ####[facility] [address] [place], [address] Monocytes/100 WBC (Bld) 9.7 % Normal 0-10 [facility] Comment on above: Order Comment: 109-1 Performed By: #### L 100.0100, L500.4100 ####[facility] [address] [place], [address] Neutrophils/100 WBC (Bld) 62.1 % Normal 47-70 [facility] Comment on above: Order Comment: 109-1 Performed By: #### L 100.0100, L500.4100 ####[facility] [address] [place], [address] Nucleated RBC (Bld) [#/Vol] 0 10*3/uL Normal 0-5 [facility] Comment on above: Order Comment: 109-1 Performed By: #### L 100.0100, L500.4100 ####[facility] [address] [place], [address] Platelet mean volume (Bld) [Entitic vol] 12.1 fL High 6.2-12.0 [facility] Comment on above: Order Comment: 109-1 Performed By: #### L 100.0100, L500.4100 ####[facility] [address] [place], [address] Platelets (Bld) [#/Vol] 172 10*3/uL Normal 150-450 [facility] Comment on above: Order Comment: 109-1 Performed By: #### L 100.0100, L500.4100 ####[facility] [address] [place], [address] RBC (Bld) [#/Vol] 4.40 10*6/uL Low 4.6-6.2 [facility] Comment on above: Order Comment: 109-1 Performed By: #### L 100.0100, L500.4100 ####[facility] [address] [place], [address] RDW SD 44.0 fl High 35.1-43.9 [facility] Comment on above: Order Comment: 109-1 Performed By: #### L 100.0100, L500.4100 ####[facility] [address] [place], [address] WBC (Bld) [#/Vol] 9.5 10*3/uL Normal 4.4-11.0 [facility] Comment on above: Order Comment: 109-1 Performed By: #### L 100.0100, L500.4100 ####[facility] [address] [place], [address] Lipid Profileon 01-02-2024 Cholesterol [Mass/Vol] 115 mg/dL Normal 200 [facility] Comment on above: Order Comment: 109-1 Result Comment: <200 mg/dL Desirable 200-240 mg/dL Borderline >240 mg/dL High Risk Performed By: #### L 100.0100, L500.4100 ####[facility] [address] [place], [address] Cholesterol in HDL [Mass/Vol] 24 mg/dL Low [facility] Comment on above: Order Comment: 109-1 Result Comment: The drugs N-Acetylcysteine and Metamizole may falselydepress this assay. Reference Range HDL <40 mg/dL Low HDL Cholesterol HDL >or= 60 mg/dL High HDL Cholesterol Performed By: #### L 100.0100, L500.4100 ####[facility] [address] [place], [address] Cholesterol in LDL [Mass/Vol] 37 mg/dL Normal 0-130 [facility] Comment on above: Order Comment: 109-1 Performed By: #### L 100.0100, L500.4100 ####[facility] [address] [place], [address] Cholesterol in VLDL [Mass/Vol] 54 mg/dL High 5-40 [facility] Comment on above: Order Comment: 109-1 Performed By: #### L 100.0100, L500.4100 ####[facility] [address] [place], [address] Triglyceride [Mass/Vol] 271 mg/dL High [facility] Comment on above: Order Comment: 109-1 Result Comment: The drugs N-Acetylcysteine and Metamizole may falselydepress this assay.Serum Triglycerides Reference Interval Normal <150 mg/dL Borderline high 150 - 199 mg/dL High 200 - 499 mg/dL Very High > or = 500 mg/dL Performed By: #### L 100.0100, L500.4100 ####[facility] [address] [place], [address] CBC W/Diff, Automatedon 11-30 Absolute Lymph 2.51 X10 3/uL Normal 0.83-4.51 [facility] Comment on above: Order Comment: 109.1 Performed By: #### L 100.0100 ####[facility] [address] [place], [address] Absolute Neut 4.1 X10 3/uL Normal 2.0-7.7 [facility] Comment on above: Order Comment: 109.1 Performed By: #### L 100.0100 ####[facility] [address] [place], [address] Basophils/100 WBC (Bld) 0.5 % Normal 0-1 [facility] Comment on above: Order Comment: 109.1 Performed By: #### L 100.0100 ####[facility] [address] [place], [address] Eosinophils/100 WBC (Bld) 0.8 % Normal 0-5 [facility] Comment on above: Order Comment: 109.1 Performed By: #### L 100.0100 ####[facility] [address], [address] Erythrocyte distribution width (RBC) [Ratio] 13.1 % Normal 11.6-14.6 [facility] Comment on above: Order Comment: 109.1 Performed By: #### L 100.0100 ####[facility] [address] [place], [address] Hematocrit (Bld) [Volume fraction] 40.5 % Normal 40-54 [facility] Comment on above: Order Comment: 109.1 Performed By: #### L 100.0100 ####[facility] [address] [place], [address] Hemoglobin (Bld) [Mass/Vol] 12.9 g/dL Low 13.0-16.5 [facility] Comment on above: Order Comment: 109.1 Performed By: #### L 100.0100 ####[facility] [address] [place], [address] IG% 0.400 Normal 0.0-0.9 [facility] Comment on above: Order Comment: 109.1 Result Comment: IG% - Immature Granulocytes (promyelocytes, myelocytes andmetamyelocytes) > 1% indicates that a LEFT SHIFT is Present. Performed By: #### L 100.0100 ####[facility] [address] [place], [address] Lymphocytes/100 WBC (Bld) 33.5 % Normal 19-41 [facility] Comment on above: Order Comment: 109.1 Performed By: #### L 100.0100 ####[facility] [address] [place], [address] MCH (RBC) [Entitic mass] 29.3 pg Normal 27.0-32.0 [facility] Comment on above: Order Comment: 109.1 Performed By: #### L 100.0100 ####[facility] [address] [place], [address] MCHC (RBC) [Mass/Vol] 31.9 g/dL Low 32-36 [facility] Comment on above: Order Comment: 109.1 Performed By: #### L 100.0100 ####[facility] [address] [place], [address] MCV (RBC) [Entitic vol] 92.0 fL Normal 80-94 [facility] Comment on above: Order Comment: 109.1 Performed By: #### L 100.0100 ####[facility] [address] [place], [address] Monocytes/100 WBC (Bld) 10.7 % High 0-10 [facility] Comment on above: Order Comment: 109.1 Performed By: #### L 100.0100 ####[facility] [address] [place], [address] Neutrophils/100 WBC (Bld) 54.1 % Normal 47-70 [facility] Comment on above: Order Comment: 109.1 Performed By: #### L 100.0100 ####[facility] [address] [place], [address] Nucleated RBC (Bld) [#/Vol] 0 10*3/uL Normal 0-5 [facility] Comment on above: Order Comment: 109.1 Performed By: #### L 100.0100 ####[facility] [address] [place], [address] Platelet mean volume (Bld) [Entitic vol] 10.8 fL Normal 6.2-12.0 [facility] Comment on above: Order Comment: 109.1 Performed By: #### L 100.0100 ####[facility] [address] [place], [address] Platelets (Bld) [#/Vol] 193 10*3/uL Normal 150-450 [facility] Comment on above: Order Comment: 109.1 Performed By: #### L 100.0100 ####[facility] [address] [place], [address] RBC (Bld) [#/Vol] 4.40 10*6/uL Low 4.6-6.2 [facility] Comment on above: Order Comment: 109.1 Performed By: #### L 100.0100 ####[facility] [address] [place], [address] RDW SD 44.0 fl High 35.1-43.9 [facility] Comment on above: Order Comment: 109.1 Performed By: #### L 100.0100 ####[facility] [address] [place], [address] WBC (Bld) [#/Vol] 7.5 10*3/uL Normal 4.4-11.0 [facility] Comment on above: Order Comment: 109.1 Performed By: #### L 100.0100 ####[facility] [address] [place], [address] CBC W/Diff, Automatedon 08- Absolute Lymph 2.38 X10 3/uL Normal 0.83-4.51 [facility] Comment on above: Order Comment: 109-1 Performed By: #### L 100.0100 ####[facility] [address] [place], [address] Absolute Neut 5.2 X10 3/uL Normal 2.0-7.7 [facility] Comment on above: Order Comment: 109-1 Performed By: #### L 100.0100 ####[facility] [address] [place], [address] Basophils/100 WBC (Bld) 0.4 % Normal 0-1 [facility] Comment on above: Order Comment: 109-1 Performed By: #### L 100.0100 ####[facility] [address] [place], [address] Eosinophils/100 WBC (Bld) 0.7 % Normal 0-5 [facility] Comment on above: Order Comment: 109-1 Performed By: #### L 100.0100 ####[facility] [address] [place], [address] Erythrocyte distribution width (RBC) [Ratio] 12.8 % Normal 11.6-14.6 [facility] Comment on above: Order Comment: 109-1 Performed By: #### L 100.0100 ####[facility] [address] [place], [address] Hematocrit (Bld) [Volume fraction] 48.0 % Normal 40-54 [facility] Comment on above: Order Comment: 109-1 Performed By: #### L 100.0100 ####[facility] [address] [place], [address] Hemoglobin (Bld) [Mass/Vol] 15.3 g/dL Normal 13.0-16.5 [facility] Comment on above: Order Comment: 109-1 Performed By: #### L 100.0100 ####[facility] [address] [place], [address] IG% 0.200 Normal 0.0-0.9 [facility] Comment on above: Order Comment: 109-1 Result Comment: IG% - Immature Granulocytes (promyelocytes, myelocytes andmetamyelocytes) > 1% indicates that a LEFT SHIFT is Present. Performed By: #### L 100.0100 ####[facility] [address] [place], [address] Lymphocytes/100 WBC (Bld) 28.5 % Normal 19-41 [facility] Comment on above: Order Comment: 109-1 Performed By: #### L 100.0100 ####[facility] [address] [place], [address] MCH (RBC) [Entitic mass] 29.4 pg Normal 27.0-32.0 [facility] Comment on above: Order Comment: 109-1 Performed By: #### L 100.0100 ####[facility] [address] [place], [address] MCHC (RBC) [Mass/Vol] 31.9 g/dL Low 32-36 [facility] Comment on above: Order Comment: 109-1 Performed By: #### L 100.0100 ####[facility] [address] [place], [address] MCV (RBC) [Entitic vol] 92.3 fL Normal 80-94 [facility] Comment on above: Order Comment: 109-1 Performed By: #### L 100.0100 ####[facility] [address] [place], [address] Monocytes/100 WBC (Bld) 8.4 % Normal 0-10 [facility] Comment on above: Order Comment: 109-1 Performed By: #### L 100.0100 ####[facility] [address] [place], [address] Neutrophils/100 WBC (Bld) 61.8 % Normal 47-70 [facility] Comment on above: Order Comment: 109-1 Performed By: #### L 100.0100 ####[facility] [address] [place], [address] Nucleated RBC (Bld) [#/Vol] 0 10*3/uL Normal 0-5 [facility] Comment on above: Order Comment: 109-1 Performed By: #### L 100.0100 ####[facility] [address] [place], [address] Platelet mean volume (Bld) [Entitic vol] 11.6 fL Normal 6.2-12.0 [facility] Comment on above: Order Comment: 109-1 Performed By: #### L 100.0100 ####[facility] [address] [place], [address] Platelets (Bld) [#/Vol] 183 10*3/uL Normal 150-450 [facility] Comment on above: Order Comment: 109-1 Performed By: #### L 100.0100 ####[facility] [address] [place], [address] RBC (Bld) [#/Vol] 5.20 10*6/uL Normal 4.6-6.2 [facility] Comment on above: Order Comment: 109-1 Performed By: #### L 100.0100 ####[facility] [address] [place], [address] RDW SD 43.5 fl Normal 35.1-43.9 [facility] Comment on above: Order Comment: 109-1 Performed By: #### L 100.0100 ####[facility] [address] [place], [address] WBC (Bld) [#/Vol] 8.3 10*3/uL Normal 4.4-11.0 [facility] Comment on above: Order Comment: 109-1 Performed By: #### L 100.0100 ####[facility] [address] [place], [address] CBC W/Diff, Automatedon 11-29 Absolute Lymph 2.03 X10 3/uL Normal 0.83-4.51 [facility] Comment on above: Order Comment: 109-1 Performed By: #### L 100.0100 ####[facility] [address] [place], [address] Absolute Neut 5.7 X10 3/uL Normal 2.0-7.7 [facility] Comment on above: Order Comment: 109-1 Performed By: #### L 100.0100 ####[facility] [address] [place], [address] Basophils/100 WBC (Bld) 0.6 % Normal 0-1 [facility] Comment on above: Order Comment: 109-1 Performed By: #### L 100.0100 ####[facility] [address] [place], [address] Eosinophils/100 WBC (Bld) 0.6 % Normal 0-5 [facility] Comment on above: Order Comment: 109-1 Performed By: #### L 100.0100 ####[facility] [address] [place], [address] Erythrocyte distribution width (RBC) [Ratio] 12.8 % Normal 11.6-14.6 [facility] Comment on above: Order Comment: 109-1 Performed By: #### L 100.0100 ####[facility] [address] [place], [address] Hematocrit (Bld) [Volume fraction] 39.9 % Low 40-54 [facility] Comment on above: Order Comment: 109-1 Performed By: #### L 100.0100 ####[facility] [address] [place], [address] Hemoglobin (Bld) [Mass/Vol] 12.8 g/dL Low 13.0-16.5 [facility] Comment on above: Order Comment: 109-1 Performed By: #### L 100.0100 ####[facility] [address] [place], [address] IG% 0.400 Normal 0.0-0.9 [facility] Comment on above: Order Comment: 109-1 Result Comment: IG% - Immature Granulocytes (promyelocytes, myelocytes andmetamyelocytes) > 1% indicates that a LEFT SHIFT is Present. Performed By: #### L 100.0100 ####[facility] [address] [place], [address] Lymphocytes/100 WBC (Bld) 23.9 % Normal 19-41 [facility] Comment on above: Order Comment: 109-1 Performed By: #### L 100.0100 ####[facility] [address] [place], [address] MCH (RBC) [Entitic mass] 29.4 pg Normal 27.0-32.0 [facility] Comment on above: Order Comment: 109-1 Performed By: #### L 100.0100 ####[facility] [address] [place], [address] MCHC (RBC) [Mass/Vol] 32.1 g/dL Normal 32-36 [facility] Comment on above: Order Comment: 109-1 Performed By: #### L 100.0100 ####[facility] [address] [place], [address] MCV (RBC) [Entitic vol] 91.7 fL Normal 80-94 [facility] Comment on above: Order Comment: 109-1 Performed By: #### L 100.0100 ####[facility] [address] [place], [address] Monocytes/100 WBC (Bld) 7.8 % Normal 0-10 [facility] Comment on above: Order Comment: 109-1 Performed By: #### L 100.0100 ####[facility] [address] [place], [address] Neutrophils/100 WBC (Bld) 66.7 % Normal 47-70 [facility] Comment on above: Order Comment: 109-1 Performed By: #### L 100.0100 ####[facility] [address] [place], [address] Nucleated RBC (Bld) [#/Vol] 0 10*3/uL Normal 0-5 [facility] Comment on above: Order Comment: 109-1 Performed By: #### L 100.0100 ####[facility] [address] [place], [address] Platelet mean volume (Bld) [Entitic vol] 11.1 fL Normal 6.2-12.0 [facility] Comment on above: Order Comment: 109-1 Performed By: #### L 100.0100 ####[facility] [address] [place], [address] Platelets (Bld) [#/Vol] 204 10*3/uL Normal 150-450 [facility] Comment on above: Order Comment: 109-1 Performed By: #### L 100.0100 ####[facility] [address] [place], [address] RBC (Bld) [#/Vol] 4.35 10*6/uL Low 4.6-6.2 [facility] Comment on above: Order Comment: 109-1 Performed By: #### L 100.0100 ####[facility] [address] [place], [address] RDW SD 43.2 fl Normal 35.1-43.9 [facility] Comment on above: Order Comment: 109-1 Performed By: #### L 100.0100 ####[facility] [address] [place], [address] WBC (Bld) [#/Vol] 8.5 10*3/uL Normal 4.4-11.0 [facility] Comment on above: Order Comment: 109-1 Performed By: #### L 100.0100 ####[facility] [address] [place], [address] CBC-Complete Blood Cnt No Di ffon 12-04-2023 Erythrocyte distribution width (RBC) [Ratio] 12.8 % Normal 11.6-14.6 [facility] Comment on above: Order Comment: 109.1 Performed By: #### L 100.0500 ####[facility] [address] [place], [address] Hematocrit (Bld) [Volume fraction] 41.0 % Normal 40-54 [facility] Comment on above: Order Comment: 109.1 Performed By: #### L 100.0500 ####[facility] [address] [place], [address] Hemoglobin (Bld) [Mass/Vol] 13.4 g/dL Normal 13.0-16.5 [facility] Comment on above: Order Comment: 109.1 Performed By: #### L 100.0500 ####[facility] [address] [place], [address] MCH (RBC) [Entitic mass] 30.0 pg Normal 27.0-32.0 [facility] Comment on above: Order Comment: 109.1 Performed By: #### L 100.0500 ####[facility] [address] [place], [address] MCHC (RBC) [Mass/Vol] 32.7 g/dL Normal 32-36 [facility] Comment on above: Order Comment: 109.1 Performed By: #### L 100.0500 ####[facility] [address] [place], [address] MCV (RBC) [Entitic vol] 91.7 fL Normal 80-94 [facility] Comment on above: Order Comment: 109.1 Performed By: #### L 100.0500 ####[facility] [address] [place], [address] Platelet mean volume (Bld) [Entitic vol] 10.8 fL Normal 6.2-12.0 [facility] Comment on above: Order Comment: 109.1 Performed By: #### L 100.0500 ####[facility] [address] [place], [address] Platelets (Bld) [#/Vol] 219 10*3/uL Normal 150-450 [facility] Comment on above: Order Comment: 109.1 Performed By: #### L 100.0500 ####[facility] [address] [place], [address] RBC (Bld) [#/Vol] 4.47 10*6/uL Low 4.6-6.2 [facility] Comment on above: Order Comment: 109.1 Performed By: #### L 100.0500 ####[facility] [address] [place], [address] RDW SD 43.0 fl Normal 35.1-43.9 [facility] Comment on above: Order Comment: 109.1 Performed By: #### L 100.0500 ####[facility] [address] [place], [address] WBC (Bld) [#/Vol] 7.6 10*3/uL Normal 4.4-11.0 [facility] Comment on above: Order Comment: 109.1 Performed By: #### L 100.0500 ####[facility] [address] [place], [address] CBC W/Diff, Automatedon 07-2 Absolute Lymph 1.72 X10 3/uL Normal 0.83-4.51 [facility] Comment on above: Order Comment: 109.1 Performed By: #### L 100.0100 ####[facility] [address] [place], [address] Absolute Neut 4.3 X10 3/uL Normal 2.0-7.7 [facility] Comment on above: Order Comment: 109.1 Performed By: #### L 100.0100 ####[facility] [address] [place], [address] Basophils/100 WBC (Bld) 0.4 % Normal 0-1 [facility] Comment on above: Order Comment: 109.1 Performed By: #### L 100.0100 ####[facility] [address] [place], [address] Eosinophils/100 WBC (Bld) 0.6 % Normal 0-5 [facility] Comment on above: Order Comment: 109.1 Performed By: #### L 100.0100 ####[facility] [address] [place], [address] Erythrocyte distribution width (RBC) [Ratio] 13.0 % Normal 11.6-14.6 [facility] Comment on above: Order Comment: 109.1 Performed By: #### L 100.0100 ####[facility] [address] [place], [address] Hematocrit (Bld) [Volume fraction] 40.8 % Normal 40-54 [facility] Comment on above: Order Comment: 109.1 Performed By: #### L 100.0100 ####[facility] [address] [place], [address] Hemoglobin (Bld) [Mass/Vol] 13.2 g/dL Normal 13.0-16.5 [facility] Comment on above: Order Comment: 109.1 Performed By: #### L 100.0100 ####[facility] [address] [place], [address] IG% 0.300 Normal 0.0-0.9 [facility] Comment on above: Order Comment: 109.1 Result Comment: IG% - Immature Granulocytes (promyelocytes, myelocytes andmetamyelocytes) > 1% indicates that a LEFT SHIFT is Present. Performed By: #### L 100.0100 ####[facility] [address] [place], [address] Lymphocytes/100 WBC (Bld) 25.8 % Normal 19-41 [facility] Comment on above: Order Comment: 109.1 Performed By: #### L 100.0100 ####[facility] [address] [place], [address] MCH (RBC) [Entitic mass] 29.7 pg Normal 27.0-32.0 [facility] Comment on above: Order Comment: 109.1 Performed By: #### L 100.0100 ####[facility] [address] [place], [address] MCHC (RBC) [Mass/Vol] 32.4 g/dL Normal 32-36 [facility] Comment on above: Order Comment: 109.1 Performed By: #### L 100.0100 ####[facility] [address] [place], [address] MCV (RBC) [Entitic vol] 91.7 fL Normal 80-94 [facility] Comment on above: Order Comment: 109.1 Performed By: #### L 100.0100 ####[facility] [address] [place], [address] Monocytes/100 WBC (Bld) 9.0 % Normal 0-10 [facility] Comment on above: Order Comment: 109.1 Performed By: #### L 100.0100 ####[facility] [address] [place], [address] Neutrophils/100 WBC (Bld) 63.9 % Normal 47-70 [facility] Comment on above: Order Comment: 109.1 Performed By: #### L 100.0100 ####[facility] [address] [place], [address] Nucleated RBC (Bld) [#/Vol] 0 10*3/uL Normal 0-5 [facility] Comment on above: Order Comment: 109.1 Performed By: #### L 100.0100 ####[facility] [address] [place], [address] Platelet mean volume (Bld) [Entitic vol] 11.0 fL Normal 6.2-12.0 [facility] Comment on above: Order Comment: 109.1 Performed By: #### L 100.0100 ####[facility] [address] [place], [address] Platelets (Bld) [#/Vol] 196 10*3/uL Normal 150-450 [facility] Comment on above: Order Comment: 109.1 Performed By: #### L 100.0100 ####[facility] [address] [place], [address] RBC (Bld) [#/Vol] 4.45 10*6/uL Low 4.6-6.2 [facility] Comment on above: Order Comment: 109.1 Performed By: #### L 100.0100 ####[facility] [address] [place], [address] RDW SD 43.5 fl Normal 35.1-43.9 [facility] Comment on above: Order Comment: 109.1 Performed By: #### L 100.0100 ####[facility] [address] [place], [address] WBC (Bld) [#/Vol] 6.7 10*3/uL Normal 4.4-11.0 [facility] Comment on above: Order Comment: 109.1 Performed By: #### L 100.0100 ####[facility] [address] [place], [address] Progress Noteon 11-22-2023 Progress Note Speech-Language Pathology SPEECH LANGUAGE PATHOLOGY [facility] Modified Barium Swallow Study [...] despite effort. 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 Frequency: Per treating [employer] Barriers: large osteophytes, bridging with anterior projection [...] Prior MBSS?: No, unable to locate in [facility] Current Diet: Puree diet with ?liquid (no information from Ramirez-Perez) Textures tested: - thin liquid, (cup edge) - mildly thick liquid, (cup edge) - puree, (teaspoon) Patient position: lateral Past Medical History: Past Medical History: Diagnosis Date TREVER (acute kidney injury) ([facility]) ([facility]) Alcohol abuse 07/08/2018 Anxiety C1 spinal cord injury ([facility]) ([facility]) Depression Fall 06/2018 Schizophrenia ([facility]) Past Surgical History: Past Surgical History: Procedure Laterality Date CERVICAL FUSION 07/09/2014 C2-6 cervical fusion GASTROSTOMY TUBE PLACEMENT 07/13/2018 TRACHEOSTOMY 07/13/2018 Admission Diagnosis: Patient Active Problem List Diagnosis Date Noted Respiratory syncytial virus (RSV) 03/22/2021 Hypoxia 03/19/2021 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[facility]) ([facility]) 08/16/2018 Chronic latent schizophrenia ([facility]) 08/15/2018 Prolonged Q-T interval on ECG 08/15/2018 Abdominal wall abscess 08/15/2018 Central cord syndrome ([facility]) ([facility]) 08/15/2018 Respiratory failure after trauma ([facility]) 08/15/2018 Pressure ulcer of sacral region, stage 2 ([facility]) 08/09/2018 Urinary retention 07/28/2018 Acute respiratory failure with hypoxia ([facility]) 07/26/2018 Mild bibasilar atelectasis 07/26/2018 Hospital-acquired pneumonia 07/26/2018 Bilateral pleural effusion 07/26/2018 Ileus ([facility]) ([facility]) 07/23/2018 TREVER (acute kidney injury) ([facility]) 07/23/2018 Hypokalemia 07/21/2018 Vertebral artery occlusion, bilateral 07/11/2018 Vitamin D insufficiency 07/10/2018 Alcohol abuse 07/08/2018 Closed wedge compression fracture of first thoracic vertebra ([facility]) 07/08/2018 Traumatic nondisp spondylolisthesis of C3 vertebra with closed fx, initial encounter ([facility]) 07/08/2018 Closed fracture dislocation of cervical spine ([facility]) 07/08/2018 Pain: Pt denies any current pain. Reason for current admission: Pt with h/o of PEG and trach from 2019. Pt is currently decannulated. H/o [employer] cervical fusion C2-C6. Noted very large connective [...] posterior spill (more content not included)... Normal [facility] RF videography Hypopharynx a nd Esophagus Views for swallowing function W speech and W barium contrast Rosalino 11-22-2023 Abnormal findings as described above. Please refer to the speech pathologist 's report for additional details and recommendations. Report Dictated on Electronically Signed By: Nir Cancino MD Electronically Signed Date/Time: 11/22/2023 1:57 PM EDT [facility] Patient Name: KATHYA HOOPER : 1955 [...] not visualized in this exam for evaluation. [facility] Nir Cancino MD - 11/22/2023 Patient [...] Electronically Signed Date/Time: 11/22/2023 1:57 PM EDT [facility] Radiology Study observation (narrative) [facility]th RF videography Hypopharynx a nd Esophagus Views for swallowing function W speech and W barium contrast POOrdered By: Nir Cancino on 11-22-2023 [facility] Work Phone: CBC W/Diff, Automatedon 10-30 Absolute Lymph 2.24 X10 3/uL Normal 0.83-4.51 [facility] Comment on above: Order Comment: 109-1 Performed By: #### L 100.0100 ####[facility] [address] [place], [address] Absolute Neut 5.7 X10 3/uL Normal 2.0-7.7 [facility] Comment on above: Order Comment: 109-1 Performed By: #### L 100.0100 ####[facility] [address] [place], [address] Basophils/100 WBC (Bld) 0.6 % Normal 0-1 [facility] Comment on above: Order Comment: 109-1 Performed By: #### L 100.0100 ####[facility] [address] [place], [address] Eosinophils/100 WBC (Bld) 0.5 % Normal 0-5 [facility] Comment on above: Order Comment: 109-1 Performed By: #### L 100.0100 ####[facility] [address] [place], [address] Erythrocyte distribution width (RBC) [Ratio] 13.1 % Normal 11.6-14.6 [facility] Comment on above: Order Comment: 109-1 Performed By: #### L 100.0100 ####[facility] [address] [place], [address] Hematocrit (Bld) [Volume fraction] 41.5 % Normal 40-54 [facility] Comment on above: Order Comment: 109-1 Performed By: #### L 100.0100 ####[facility] [address] [place], [address] Hemoglobin (Bld) [Mass/Vol] 13.6 g/dL Normal 13.0-16.5 [facility] Comment on above: Order Comment: 109-1 Performed By: #### L 100.0100 ####[facility] [address] [place], [address] IG% 0.200 Normal 0.0-0.9 [facility] Comment on above: Order Comment: 109-1 Result Comment: IG% - Immature Granulocytes (promyelocytes, myelocytes andmetamyelocytes) > 1% indicates that a LEFT SHIFT is Present. Performed By: #### L 100.0100 ####[facility] [address] [place], [address] Lymphocytes/100 WBC (Bld) 25.5 % Normal 19-41 [facility] Comment on above: Order Comment: 109-1 Performed By: #### L 100.0100 ####[facility] [address] [place], [address] MCH (RBC) [Entitic mass] 30.0 pg Normal 27.0-32.0 [facility] Comment on above: Order Comment: 109-1 Performed By: #### L 100.0100 ####[facility] [address] [place], [address] MCHC (RBC) [Mass/Vol] 32.8 g/dL Normal 32-36 [facility] Comment on above: Order Comment: 109-1 Performed By: #### L 100.0100 ####[facility] [address] [place], [address] MCV (RBC) [Entitic vol] 91.4 fL Normal 80-94 [facility] Comment on above: Order Comment: 109-1 Performed By: #### L 100.0100 ####[facility] [address] [place], [address] Monocytes/100 WBC (Bld) 8.0 % Normal 0-10 [facility] Comment on above: Order Comment: 109-1 Performed By: #### L 100.0100 ####[facility] [address] [place], [address] Neutrophils/100 WBC (Bld) 65.2 % Normal 47-70 [facility] Comment on above: Order Comment: 109-1 Performed By: #### L 100.0100 ####[facility] [address] [place], [address] Nucleated RBC (Bld) [#/Vol] 0 10*3/uL Normal 0-5 [facility] Comment on above: Order Comment: 109-1 Performed By: #### L 100.0100 ####[facility] [address] [place], [address] Platelet mean volume (Bld) [Entitic vol] 11.5 fL Normal 6.2-12.0 [facility] Comment on above: Order Comment: 109-1 Performed By: #### L 100.0100 ####[facility] [address] [place], [address] Platelets (Bld) [#/Vol] 190 10*3/uL Normal 150-450 [facility] Comment on above: Order Comment: 109-1 Performed By: #### L 100.0100 ####[facility] [address] [place], [address] RBC (Bld) [#/Vol] 4.54 10*6/uL Low 4.6-6.2 [facility] Comment on above: Order Comment: 109-1 Performed By: #### L 100.0100 ####[facility] [address] [place], [address] RDW SD 43.3 fl Normal 35.1-43.9 [facility] Comment on above: Order Comment: 109-1 Performed By: #### L 100.0100 ####[facility] [address] [place], [address] WBC (Bld) [#/Vol] 8.8 10*3/uL Normal 4.4-11.0 [facility] Comment on above: Order Comment: 109-1 Performed By: #### L 100.0100 ####[facility] [address] [place], [address] Urine Cultureon 11-15-2023 [facility] Culture exhibits no growth. Normal [facility] Comment on above: Performed By: #### M 100.2200, L400.0001 ####[facility] [address] [place], [address] Urinalysis, Completeon 11-13 RBC 0-5 SEEN Normal 0-5 [facility] Comment on above: Order Comment: CLEAN CATCH Performed By: #### M 100.2200, L400.0001 ####[facility] [address] [place], [address] WBC 0-5 SEEN Normal 0-5 [facility] Comment on above: Order Comment: CLEAN CATCH Performed By: #### M 100.2200, L400.0001 ####[facility] [address] [place], [address] BACTERIA 0 SEEN Normal None Seen [facility] Comment on above: Order Comment: CLEAN CATCH Performed By: #### M 100.2200, L400.0001 ####[facility] [address] [place], [address] EPI,SQUAMOUS 0 SEEN Normal 0-5 [facility] Comment on above: Order Comment: CLEAN CATCH Performed By: #### M 100.2200, L400.0001 ####[facility] [address] [place], [address] Mucus Ql (Urine sed) 0 SEEN Normal [facility] Comment on above: Order Comment: CLEAN CATCH Performed By: #### M 100.2200, L400.0001 ####[facility] [address] [place], [address] CBC W/Diff, Automatedon 10-29 Absolute Lymph 2.72 X10 3/uL Normal 0.83-4.51 [facility] Comment on above: Order Comment: 109-1 Performed By: #### L 100.0100 ####[facility] [address] [place], [address] Absolute Neut 8.2 X10 3/uL High 2.0-7.7 [facility] Comment on above: Order Comment: 109-1 Performed By: #### L 100.0100 ####[facility] [address] [place], [address] Basophils/100 WBC (Bld) 0.5 % Normal 0-1 [facility] Comment on above: Order Comment: 109-1 Performed By: #### L 100.0100 ####[facility] [address] [place], [address] Eosinophils/100 WBC (Bld) 0.3 % Normal 0-5 [facility] Comment on above: Order Comment: 109-1 Performed By: #### L 100.0100 ####[facility] [address] [place], [address] Erythrocyte distribution width (RBC) [Ratio] 12.9 % Normal 11.6-14.6 [facility] Comment on above: Order Comment: 109-1 Performed By: #### L 100.0100 ####[facility] [address] [place], [address] Hematocrit (Bld) [Volume fraction] 43.6 % Normal 40-54 [facility] Comment on above: Order Comment: 109-1 Performed By: #### L 100.0100 ####[facility] [address] [place], [address] Hemoglobin (Bld) [Mass/Vol] 14.0 g/dL Normal 13.0-16.5 [facility] Comment on above: Order Comment: 109-1 Performed By: #### L 100.0100 ####[facility] [address] [place], [address] IG% 0.400 Normal 0.0-0.9 [facility] Comment on above: Order Comment: 109-1 Result Comment: IG% - Immature Granulocytes (promyelocytes, myelocytes andmetamyelocytes) > 1% indicates that a LEFT SHIFT is Present. Performed By: #### L 100.0100 ####[facility] [address] [place], [address] Lymphocytes/100 WBC (Bld) 23.2 % Normal 19-41 [facility] Comment on above: Order Comment: 109-1 Performed By: #### L 100.0100 ####[facility] [address] [place], [address] MCH (RBC) [Entitic mass] 29.9 pg Normal 27.0-32.0 [facility] Comment on above: Order Comment: 109-1 Performed By: #### L 100.0100 ####[facility] [address] [place], [address] MCHC (RBC) [Mass/Vol] 32.1 g/dL Normal 32-36 [facility] Comment on above: Order Comment: 109-1 Performed By: #### L 100.0100 ####[facility] [address] [place], [address] MCV (RBC) [Entitic vol] 93.0 fL Normal 80-94 [facility] Comment on above: Order Comment: 109-1 Performed By: #### L 100.0100 ####[facility] [address] [place], [address] Monocytes/100 WBC (Bld) 5.8 % Normal 0-10 [facility] Comment on above: Order Comment: 109-1 Performed By: #### L 100.0100 ####[facility] [address] [place], [address] Neutrophils/100 WBC (Bld) 69.8 % Normal 47-70 [facility] Comment on above: Order Comment: 109-1 Performed By: #### L 100.0100 ####[facility] [address] [place], [address] Nucleated RBC (Bld) [#/Vol] 0 10*3/uL Normal 0-5 [facility] Comment on above: Order Comment: 109-1 Performed By: #### L 100.0100 ####[facility] [address] [place], [address] Platelet mean volume (Bld) [Entitic vol] 11.2 fL Normal 6.2-12.0 [facility] Comment on above: Order Comment: 109-1 Performed By: #### L 100.0100 ####[facility] [address] [place], [address] Platelets (Bld) [#/Vol] 207 10*3/uL Normal 150-450 [facility] Comment on above: Order Comment: 109-1 Performed By: #### L 100.0100 ####[facility] [address] [place], [address] RBC (Bld) [#/Vol] 4.69 10*6/uL Normal 4.6-6.2 [facility] Comment on above: Order Comment: 109-1 Performed By: #### L 100.0100 ####[facility] [address] [place], [address] RDW SD 43.4 fl Normal 35.1-43.9 [facility] Comment on above: Order Comment: 109-1 Performed By: #### L 100.0100 ####[facility] [address] [place], [address] WBC (Bld) [#/Vol] 11.7 10*3/uL High 4.4-11.0 [facility] Comment on above: Order Comment: 109-1 Performed By: #### L 100.0100 ####[facility] [address] [place], [address] CBC W/Diff, Automatedon 07-0 8-4 Absolute Lymph 2.13 X10 3/uL Normal 0.83-4.51 [facility] Comment on above: Order Comment: 109-1 Performed By: #### L 100.0100 ####[facility] [address] [place], [address] Absolute Neut 4.7 X10 3/uL Normal 2.0-7.7 [facility] Comment on above: Order Comment: 109-1 Performed By: #### L 100.0100 ####[facility] [address] [place], [address] Basophils/100 WBC (Bld) 0.7 % Normal 0-1 [facility] Comment on above: Order Comment: 109-1 Performed By: #### L 100.0100 ####[facility] [facility] [address] [place], [address] Eosinophils/100 WBC (Bld) 0.4 % Normal 0-5 [facility] Comment on above: Order Comment: 109-1 Performed By: #### L 100.0100 ####[facility] [address], [address] Erythrocyte distribution width (RBC) [Ratio] 13.1 % Normal 11.6-14.6 [facility] Comment on above: Order Comment: 109-1 Performed By: #### L 100.0100 ####[facility] [address] [place], [address] Hematocrit (Bld) [Volume fraction] 42.4 % Normal 40-54 [facility] Comment on above: Order Comment: 109-1 Performed By: #### L 100.0100 ####[facility] [address] [place], [address] Hemoglobin (Bld) [Mass/Vol] 13.9 g/dL Normal 13.0-16.5 [facility] Comment on above: Order Comment: 109-1 Performed By: #### L 100.0100 ####[facility] [address] [place], [address] IG% 0.400 Normal 0.0-0.9 [facility] Comment on above: Order Comment: 109-1 Result Comment: IG% - Immature Granulocytes (promyelocytes, myelocytes andmetamyelocytes) > 1% indicates that a LEFT SHIFT is Present. Performed By: #### L 100.0100 ####[facility] [address] [place], [address] Lymphocytes/100 WBC (Bld) 28.1 % Normal 19-41 [facility] Comment on above: Order Comment: 109-1 Performed By: #### L 100.0100 ####[facility] [address] [place], [address] MCH (RBC) [Entitic mass] 30.3 pg Normal 27.0-32.0 [facility] Comment on above: Order Comment: 109-1 Performed By: #### L 100.0100 ####[facility] [address] [place], [address] MCHC (RBC) [Mass/Vol] 32.8 g/dL Normal 32-36 [facility] Comment on above: Order Comment: 109-1 Performed By: #### L 100.0100 ####[facility] [address] [place], [address] MCV (RBC) [Entitic vol] 92.4 fL Normal 80-94 [facility] Comment on above: Order Comment: 109-1 Performed By: #### L 100.0100 ####[facility] [address] [place], [address] Monocytes/100 WBC (Bld) 8.8 % Normal 0-10 [facility] Comment on above: Order Comment: 109-1 Performed By: #### L 100.0100 ####[facility] [address] [place], [address] Neutrophils/100 WBC (Bld) 61.6 % Normal 47-70 [facility] Comment on above: Order Comment: 109-1 Performed By: #### L 100.0100 ####[facility] [address] [place], [address] Nucleated RBC (Bld) [#/Vol] 0 10*3/uL Normal 0-5 [facility] Comment on above: Order Comment: 109-1 Performed By: #### L 100.0100 ####[facility] [address] [place], [address] Platelet mean volume (Bld) [Entitic vol] 10.9 fL Normal 6.2-12.0 [facility] Comment on above: Order Comment: 109-1 Performed By: #### L 100.0100 ####[facility] [address] [place], [address] Platelets (Bld) [#/Vol] 173 10*3/uL Normal 150-450 [facility] Comment on above: Order Comment: 109-1 Performed By: #### L 100.0100 ####[facility] [address] [place], [address] RBC (Bld) [#/Vol] 4.59 10*6/uL Low 4.6-6.2 [facility] Comment on above: Order Comment: 109-1 Performed By: #### L 100.0100 ####[facility] [address] [place], [address] RDW SD 44.0 fl High 35.1-43.9 [facility] Comment on above: Order Comment: 109-1 Performed By: #### L 100.0100 ####[facility] [address] [place], [address] WBC (Bld) [#/Vol] 7.6 10*3/uL Normal 4.4-11.0 [facility] Comment on above: Order Comment: 109-1 Performed By: #### L 100.0100 ####[facility] [address] [place], [address] CBC W/Diff, Automatedon 07-0 1-2024 Absolute Lymph 3.06 X10 3/uL Normal 0.83-4.51 [facility] Comment on above: Order Comment: 109-1 Performed By: #### L 100.0100 ####[facility] [address] [place], [address] Absolute Neut 5.1 X10 3/uL Normal 2.0-7.7 [facility] Comment on above: Order Comment: 109-1 Performed By: #### L 100.0100 ####[facility] [address] [place], [address] Basophils/100 WBC (Bld) 0.5 % Normal 0-1 [facility] Comment on above: Order Comment: 109-1 Performed By: #### L 100.0100 ####[facility] [address] [place], [address] Eosinophils/100 WBC (Bld) 0.3 % Normal 0-5 [facility] Comment on above: Order Comment: 109-1 Performed By: #### L 100.0100 ####[facility] [address] [place], [address] Erythrocyte distribution width (RBC) [Ratio] 13.2 % Normal 11.6-14.6 [facility] Comment on above: Order Comment: 109-1 Performed By: #### L 100.0100 ####[facility] [address] [place], [address] Hematocrit (Bld) [Volume fraction] 43.8 % Normal 40-54 [facility] Comment on above: Order Comment: 109-1 Performed By: #### L 100.0100 ####[facility] [address] [place], [address] Hemoglobin (Bld) [Mass/Vol] 13.9 g/dL Normal 13.0-16.5 [facility] Comment on above: Order Comment: 109-1 Performed By: #### L 100.0100 ####[facility] [address] [place], [address] IG% 0.400 Normal 0.0-0.9 [facility] Comment on above: Order Comment: 109-1 Result Comment: IG% - Immature Granulocytes (promyelocytes, myelocytes andmetamyelocytes) > 1% indicates that a LEFT SHIFT is Present. Performed By: #### L 100.0100 ####[facility] [address] [place], [address] Lymphocytes/100 WBC (Bld) 32.4 % Normal 19-41 [facility] Comment on above: Order Comment: 109-1 Performed By: #### L 100.0100 ####[facility] [address] [place], [address] MCH (RBC) [Entitic mass] 29.3 pg Normal 27.0-32.0 [facility] Comment on above: Order Comment: 109-1 Performed By: #### L 100.0100 ####[facility] [address] [place], [address] MCHC (RBC) [Mass/Vol] 31.7 g/dL Low 32-36 [facility] Comment on above: Order Comment: 109-1 Performed By: #### L 100.0100 ####[facility] [address] [place], [address] MCV (RBC) [Entitic vol] 92.4 fL Normal 80-94 [facility] Comment on above: Order Comment: 109-1 Performed By: #### L 100.0100 ####[facility] [address] [place], [address] Monocytes/100 WBC (Bld) 11.9 % High 0-10 [facility] Comment on above: Order Comment: 109-1 Performed By: #### L 100.0100 ####[facility] [address] [place], [address] Neutrophils/100 WBC (Bld) 54.5 % Normal 47-70 [facility] Comment on above: Order Comment: 109-1 Performed By: #### L 100.0100 ####[facility] [address] [place], [address] Nucleated RBC (Bld) [#/Vol] 0 10*3/uL Normal 0-5 [facility] Comment on above: Order Comment: 109-1 Performed By: #### L 100.0100 ####[facility] [address] [place], [address] Platelet mean volume (Bld) [Entitic vol] 11.7 fL Normal 6.2-12.0 [facility] Comment on above: Order Comment: 109-1 Performed By: #### L 100.0100 ####[facility] [address] [place], [address] Platelets (Bld) [#/Vol] 203 10*3/uL Normal 150-450 [facility] Comment on above: Order Comment: 109-1 Performed By: #### L 100.0100 ####[facility] [address] [place], [address] RBC (Bld) [#/Vol] 4.74 10*6/uL Normal 4.6-6.2 [facility] Comment on above: Order Comment: 109-1 Performed By: #### L 100.0100 ####[facility] [address] [place], [address] RDW SD 44.7 fl High 35.1-43.9 [facility] Comment on above: Order Comment: 109-1 Performed By: #### L 100.0100 ####[facility] [address] [place], [address] WBC (Bld) [#/Vol] 9.4 10*3/uL Normal 4.4-11.0 [facility] Comment on above: Order Comment: 109-1 Performed By: #### L 100.0100 ####[facility] [address] [place], [address] CBC W/Diff, Automatedon 06-2 -2023 Absolute Lymph 2.08 X10 3/uL Normal 0.83-4.51 [facility] Comment on above: Order Comment: 109-1 Performed By: #### L 100.0100 ####[facility] [address] [place], [address] Absolute Neut 4.3 X10 3/uL Normal 2.0-7.7 [facility] Comment on above: Order Comment: 109-1 Performed By: #### L 100.0100 ####[facility] [address] [place], [address] Basophils/100 WBC (Bld) 0.6 % Normal 0-1 [facility] Comment on above: Order Comment: 109-1 Performed By: #### L 100.0100 ####[facility] [address] [place], [address] Eosinophils/100 WBC (Bld) 0.6 % Normal 0-5 [facility] Comment on above: Order Comment: 109-1 Performed By: #### L 100.0100 ####[facility] [address] [place], [address] Erythrocyte distribution width (RBC) [Ratio] 12.9 % Normal 11.6-14.6 [facility] Comment on above: Order Comment: 109-1 Performed By: #### L 100.0100 ####[facility] [address] [place], [address] Hematocrit (Bld) [Volume fraction] 39.1 % Low 40-54 [facility] Comment on above: Order Comment: 109-1 Performed By: #### L 100.0100 ####[facility] [address] [place], [address] Hemoglobin (Bld) [Mass/Vol] 12.6 g/dL Low 13.0-16.5 [facility] Comment on above: Order Comment: 109-1 Performed By: #### L 100.0100 ####[facility] [address] [place], [address] IG% 0.400 Normal 0.0-0.9 [facility] Comment on above: Order Comment: 109-1 Result Comment: IG% - Immature Granulocytes (promyelocytes, myelocytes andmetamyelocytes) > 1% indicates that a LEFT SHIFT is Present. Performed By: #### L 100.0100 ####[facility] [address] [place], [address] Lymphocytes/100 WBC (Bld) 29.1 % Normal 19-41 [facility] Comment on above: Order Comment: 109-1 Performed By: #### L 100.0100 ####[facility] [address] [place], [address] MCH (RBC) [Entitic mass] 29.7 pg Normal 27.0-32.0 [facility] Comment on above: Order Comment: 109-1 Performed By: #### L 100.0100 ####[facility] [address] [place], [address] MCHC (RBC) [Mass/Vol] 32.2 g/dL Normal 32-36 [facility] Comment on above: Order Comment: 109-1 Performed By: #### L 100.0100 ####[facility] [address] [place], [address] MCV (RBC) [Entitic vol] 92.2 fL Normal 80-94 [facility] Comment on above: Order Comment: 109-1 Performed By: #### L 100.0100 ####[facility] [address] [place], [address] Monocytes/100 WBC (Bld) 9.6 % Normal 0-10 [facility] Comment on above: Order Comment: 109-1 Performed By: #### L 100.0100 ####[facility] [address] [place], [address] Neutrophils/100 WBC (Bld) 59.7 % Normal 47-70 [facility] Comment on above: Order Comment: 109-1 Performed By: #### L 100.0100 ####[facility] [address] [place], [address] Nucleated RBC (Bld) [#/Vol] 0 10*3/uL Normal 0-5 [facility] Comment on above: Order Comment: 109-1 Performed By: #### L 100.0100 ####[facility] [address] [place], [address] Platelet mean volume (Bld) [Entitic vol] 11.3 fL Normal 6.2-12.0 [facility] Comment on above: Order Comment: 109-1 Performed By: #### L 100.0100 ####[facility] [address] [place], [address] Platelets (Bld) [#/Vol] 200 10*3/uL Normal 150-450 [facility] Comment on above: Order Comment: 109-1 Performed By: #### L 100.0100 ####[facility] [address] [place], [address] RBC (Bld) [#/Vol] 4.24 10*6/uL Low 4.6-6.2 [facility] Comment on above: Order Comment: 109-1 Performed By: #### L 100.0100 ####[facility] [address] [place], [address] RDW SD 43.5 fl Normal 35.1-43.9 [facility] Comment on above: Order Comment: 109-1 Performed By: #### L 100.0100 ####[facility] [address] [place], [address] WBC (Bld) [#/Vol] 7.2 10*3/uL Normal 4.4-11.0 [facility] Comment on above: Order Comment: 109-1 Performed By: #### L 100.0100 ####[facility] [address] [place], [address] CBC W/Diff, Automatedon 09-29 Absolute Lymph 2.37 X10 3/uL Normal 0.83-4.51 [facility] Comment on above: Order Comment: 109-1 Performed By: #### L 100.0100 ####[facility] [address] [place], [address] Absolute Neut 5.6 X10 3/uL Normal 2.0-7.7 [facility] Comment on above: Order Comment: 109-1 Performed By: #### L 100.0100 ####[facility] [address] [place], [address] Basophils/100 WBC (Bld) 0.3 % Normal 0-1 [facility] Comment on above: Order Comment: 109-1 Performed By: #### L 100.0100 ####[facility] [address] [place], [address] Eosinophils/100 WBC (Bld) 0.2 % Normal 0-5 [facility] Comment on above: Order Comment: 109-1 Performed By: #### L 100.0100 ####[facility] [address] [place], [address] Erythrocyte distribution width (RBC) [Ratio] 12.6 % Normal 11.6-14.6 [facility] Comment on above: Order Comment: 109-1 Performed By: #### L 100.0100 ####[facility] [address] [place], [address] Hematocrit (Bld) [Volume fraction] 39.6 % Low 40-54 [facility] Comment on above: Order Comment: 109-1 Performed By: #### L 100.0100 ####[facility] [address] [place], [address] Hemoglobin (Bld) [Mass/Vol] 12.8 g/dL Low 13.0-16.5 [facility] Comment on above: Order Comment: 109-1 Performed By: #### L 100.0100 ####[facility] [address] [place], [address] IG% 0.500 Normal 0.0-0.9 [facility] Comment on above: Order Comment: 109-1 Result Comment: IG% - Immature Granulocytes (promyelocytes, myelocytes andmetamyelocytes) > 1% indicates that a LEFT SHIFT is Present. Performed By: #### L 100.0100 ####[facility] [address] [place], [address] Lymphocytes/100 WBC (Bld) 27.3 % Normal 19-41 [facility] Comment on above: Order Comment: 109-1 Performed By: #### L 100.0100 ####[facility] [address] [place], [address] MCH (RBC) [Entitic mass] 29.7 pg Normal 27.0-32.0 [facility] Comment on above: Order Comment: 109-1 Performed By: #### L 100.0100 ####[facility] [address] [place], [address] MCHC (RBC) [Mass/Vol] 32.3 g/dL Normal 32-36 [facility] Comment on above: Order Comment: 109-1 Performed By: #### L 100.0100 ####[facility] [address] [place], [address] MCV (RBC) [Entitic vol] 91.9 fL Normal 80-94 [facility] Comment on above: Order Comment: 109-1 Performed By: #### L 100.0100 ####[facility] [address] [place], [address] Monocytes/100 WBC (Bld) 6.8 % Normal 0-10 [facility] Comment on above: Order Comment: 109-1 Performed By: #### L 100.0100 ####[facility] [address], [address] Neutrophils/100 WBC (Bld) 64.9 % Normal 47-70 [facility] Comment on above: Order Comment: 109-1 Performed By: #### L 100.0100 ####[facility] [address], [address] Nucleated RBC (Bld) [#/Vol] 0 10*3/uL Normal 0-5 [facility] Comment on above: Order Comment: 109-1 Performed By: #### L 100.0100 ####[facility] [address] [place], [address] Platelet mean volume (Bld) [Entitic vol] 10.7 fL Normal 6.2-12.0 [facility] Comment on above: Order Comment: 109-1 Performed By: #### L 100.0100 ####[facility] [address] [place], [address] Platelets (Bld) [#/Vol] 209 10*3/uL Normal 150-450 [facility] Comment on above: Order Comment: 109-1 Performed By: #### L 100.0100 ####[facility] [address] [place], [address] RBC (Bld) [#/Vol] 4.31 10*6/uL Low 4.6-6.2 [facility] Comment on above: Order Comment: 109-1 Performed By: #### L 100.0100 ####[facility] [address] [place], [address] RDW SD 42.5 fl Normal 35.1-43.9 [facility] Comment on above: Order Comment: 109-1 Performed By: #### L 100.0100 ####[facility] [address] [place], [address] WBC (Bld) [#/Vol] 8.7 10*3/uL Normal 4.4-11.0 [facility] Comment on above: Order Comment: 109-1 Performed By: #### L 100.0100 ####[facility] [address] [place], [address] CBC W/Diff, Automatedon 06-1 0-2024 Absolute Lymph 2.05 X10 3/uL Normal 0.83-4.51 [facility] Comment on above: Order Comment: 109-1 Performed By: #### L 100.0100 ####[facility] [address] [place], [address] Absolute Neut 5.5 X10 3/uL Normal 2.0-7.7 [facility] Comment on above: Order Comment: 109-1 Performed By: #### L 100.0100 ####[facility] [address] [place], [address] Basophils/100 WBC (Bld) 0.2 % Normal 0-1 [facility] Comment on above: Order Comment: 109-1 Performed By: #### L 100.0100 ####[facility] [address] [place], [address] Eosinophils/100 WBC (Bld) 0.4 % Normal 0-5 [facility] Comment on above: Order Comment: 109-1 Performed By: #### L 100.0100 ####[facility] [address] [place], [address] Erythrocyte distribution width (RBC) [Ratio] 12.5 % Normal 11.6-14.6 [facility] Comment on above: Order Comment: 109-1 Performed By: #### L 100.0100 ####[facility] [address] [place], [address] Hematocrit (Bld) [Volume fraction] 40.0 % Normal 40-54 [facility] Comment on above: Order Comment: 109-1 Performed By: #### L 100.0100 ####[facility] [address] [place], [address] Hemoglobin (Bld) [Mass/Vol] 13.2 g/dL Normal 13.0-16.5 [facility] Comment on above: Order Comment: 109-1 Performed By: #### L 100.0100 ####[facility] [address] [place], [address] IG% 0.700 Normal 0.0-0.9 [facility] Comment on above: Order Comment: 109-1 Result Comment: IG% - Immature Granulocytes (promyelocytes, myelocytes andmetamyelocytes) > 1% indicates that a LEFT SHIFT is Present. Performed By: #### L 100.0100 ####[facility] [address] [place], [address] Lymphocytes/100 WBC (Bld) 24.8 % Normal 19-41 [facility] Comment on above: Order Comment: 109-1 Performed By: #### L 100.0100 ####[facility] [address] [place], [address] MCH (RBC) [Entitic mass] 30.1 pg Normal 27.0-32.0 [facility] Comment on above: Order Comment: 109-1 Performed By: #### L 100.0100 ####[facility] [address] [place], [address] MCHC (RBC) [Mass/Vol] 33.0 g/dL Normal 32-36 [facility] Comment on above: Order Comment: 109-1 Performed By: #### L 100.0100 ####[facility] [address] [place], [address] MCV (RBC) [Entitic vol] 91.3 fL Normal 80-94 [facility] Comment on above: Order Comment: 109-1 Performed By: #### L 100.0100 ####[facility] [address] [place], [address] Monocytes/100 WBC (Bld) 7.1 % Normal 0-10 [facility] Comment on above: Order Comment: 109-1 Performed By: #### L 100.0100 ####[facility] [address] [place], [address] Neutrophils/100 WBC (Bld) 66.8 % Normal 47-70 [facility] Comment on above: Order Comment: 109-1 Performed By: #### L 100.0100 ####[facility] [address] [place], [address] Nucleated RBC (Bld) [#/Vol] 0 10*3/uL Normal 0-5 [facility] Comment on above: Order Comment: 109-1 Performed By: #### L 100.0100 ####[facility] [address] [place], [address] Platelet mean volume (Bld) [Entitic vol] 10.4 fL Normal 6.2-12.0 [facility] Comment on above: Order Comment: 109-1 Performed By: #### L 100.0100 ####[facility] [address] [place], [address] Platelets (Bld) [#/Vol] 234 10*3/uL Normal 150-450 [facility] Comment on above: Order Comment: 109-1 Performed By: #### L 100.0100 ####[facility] [address] [place], [address] RBC (Bld) [#/Vol] 4.38 10*6/uL Low 4.6-6.2 [facility] Comment on above: Order Comment: 109-1 Performed By: #### L 100.0100 ####[facility] [id number] [place], [address] RDW SD 41.9 fl Normal 35.1-43.9 [facility] Comment on above: Order Comment: 109-1 Performed By: #### L 100.0100 ####[facility] [id number] [place], [address] WBC (Bld) [#/Vol] 8.3 10*3/uL Normal 4.4-11.0 [facility] Comment on above: Order Comment: 109-1 Performed By: #### L 100.0100 ####[facility] [id number] [place], [address] CBC W Auto Differential pane l (Bld)on 10-02-2023 Basophils (Bld) [#/Vol] 0.0 10*3/uL 0.0 - 0.2 10*3/uL [facility] Basophils/100 WBC (Bld) 0.3 % 0.0 - 2.0 % [facility] Eosinophils (Bld) [#/Vol] 0.0 10*3/uL 0.0 - 0.5 10*3/uL [facility] Eosinophils/100 WBC (Bld) 0.0 % 0.0 - 6.0 % [employer] Erythrocyte distribution width (RBC) [Ratio] 13.0 % 11.5 - 15.0 % [employer] [facility] Hematocrit (Bld) [Volume fraction] 37.8 % Low 40.0 - 52.0 % [employer] [facility] Hemoglobin (Bld) [Mass/Vol] 13.0 g/dL 13.0 - 18.0 g/dL [facility] Immature granulocytes (Bld) [#/Vol] 0.1 10*3/uL High NINF - 0.1 10*3/uL [facility] Immature granulocytes/100 WBC (Bld) 0.5 % 0.0 - 2.0 % [facility] Interpretation and review of laboratory results Abnormal [facility] Lymphocytes (Bld) [#/Vol] 0.9 10*3/uL Low 1.0 - 4.3 10*3/uL [facility] Lymphocytes/100 WBC (Bld) 8.4 % Low 15.0 - 45.0 % [facility] MCH (RBC) [Entitic mass] 30.3 pg 26.0 - 34.0 pg [facility] MCHC (RBC) [Mass/Vol] 34.4 % 30.5 - 36.0 % [facility] MCV (RBC) [Entitic vol] 88.1 fL 77.0 - 99.0 fL [facility] Monocytes (Bld) [#/Vol] 0.9 10*3/uL 0.0 - 0.9 10*3/uL [facility] Monocytes/100 WBC (Bld) 8.2 % 5.0 - 13.0 % [facility] Neutrophils (Bld) [#/Vol] 8.9 10*3/uL High 1.8 - 7.5 10*3/uL [facility] Neutrophils/100 WBC (Bld) 82.6 % High 38.0 - 82.0 % [facility] Nucleated RBC/100 WBC (Bld) [Ratio] 0.0 % [facility] Platelet mean volume (Bld) [Entitic vol] 10.7 fL 9.0 - 12.7 fL [facility] Platelets (Bld) [#/Vol] 148 10*3/uL 140 - 440 10*3/uL [facility] RBC (Bld) [#/Vol] 4.29 10*6/uL Low 4.40 - 5.9 0 10*6/uL [facility] WBC (Bld) [#/Vol] 10.7 10*3/uL 3.6 - 10.7 10*3/uL [facility] CBC WITH AUTO DIFFERENTIALon 10-02-2023 Basophils (Bld) [#/Vol] 0.0 10*3/uL Normal 0.0-0.2 [facility] Comment on above: Performed By: #### L [id number] #### [employer] Worker: CYNDI LILLY ([id number]) [facility] ([facility]) [address] Basophils/100 WBC (Bld) 0.3 % Normal 0.0-2.0 [facility] Comment on above: Performed By: #### L [id number] #### [employer] Collection Worker: CYNDI DRIVERRADHA ([id number]) [facility] ([facility]) [address] Eosinophils (Bld) [#/Vol] 0.0 10*3/uL Normal 0.0-0.5 [facility] Comment on above: Performed By: #### L [id number] #### [employer] Collection Worker: CYNDI DRIVERRADHA ([id number]) [facility] ([facility]) [address] Eosinophils/100 WBC (Bld) 0.0 % Normal 0.0-6.0 [facility] Comment on above: Performed By: #### L [id number] #### [employer] Collection Worker: CYNDI DRIVERRADHA ([id number]) [facility] ([facility]) [address] Erythrocyte distribution width (RBC) [Ratio] 13.0 % Normal 11.5-15.0 [facility] Comment on above: Performed By: #### L [id number] #### [employer] Collection Worker: CYNDI DRIVERRADHA ([id number]) [facility] ([facility]) [address] Hematocrit (Bld) [Volume fraction] 37.8 % Low 40.0-52.0 [facility] Comment on above: Performed By: #### L [id number] #### [employer] Collection Worker: CYNDI LILLY ([id number]) [facility] [address] Hemoglobin (Bld) [Mass/Vol] 13.0 g/dL Normal 13.0-18.0 [facility] Comment on above: Performed By: #### L [id number] #### [employer] Collection Worker: CYNDI LILLY ([id number]) [facility] ([facility] [address] IMMATURE GRANS % 0.5 % Normal 0.0-2.0 [facility] Comment on above: Performed By: #### L [id number] #### [employer] Collection Worker: CYNDI LILLY ([id number]) [facility] ([facility]) [address] IMMATURE GRANS ABSOLUTE 0.1 10*3/uL High <0.1 [facility] Comment on above: Performed By: #### L [id number] #### [employer] Collection Worker: CYNDI LILLY ([id number]) [facility] ([facility]) [address] [place] [address] [place] Lymphocytes (Bld) [#/Vol] 0.9 10*3/uL Low 1.0-4.3 [facility] Comment on above: Performed By: #### L [id number] #### [employer] Collection Worker: CYNDI LILLY ([id number]) [facility] ([facility] [address] Lymphocytes/100 WBC (Bld) 8.4 % Low 15.0-45.0 [facility] Comment on above: Performed By: #### L [id number] #### [employer] Collection Worker: CYNDI LILLY ([id number]) [facility] ([facility] [address] MCH (RBC) [Entitic mass] 30.3 pg Normal 26.0-34.0 [facility] Comment on above: Performed By: #### L [id number] #### [employer] Collection Worker: CYNDI LILLY ([id number]) [facility] ([facility]) [address] MCHC 34.4 % Normal 30.5-36.0 [facility] Comment on above: Performed By: #### L [id number] #### [employer] Collection Worker: CYNDI LILLY ([id number]) [facility] ([facility]) [address] MCV (RBC) [Entitic vol] 88.1 fL Normal 77.0-99.0 [facility] Comment on above: Performed By: #### L [id number] #### [employer] Collection Worker: CYNDI LILLY ([id number]) [facility] ([facility]) [address] Monocytes (Bld) [#/Vol] 0.9 10*3/uL Normal 0.0-0.9 [facility] Comment on above: Performed By: #### L [id number] #### [employer] Collection Worker: CYNDI DRIVERRADHA ([id number]) [facility] ([facility]) [address] [place] [address] [place] Monocytes/100 WBC (Bld) 8.2 % Normal 5.0-13.0 [facility] Comment on above: Performed By: #### L [id number] #### [employer] Collection Worker: CYNDI DRIVERRADHA ([id number]) [facility] ([facility]) [address] NEUTROPHILS ABSOLUTE 8.9 10*3/uL High 1.8-7.5 [facility] Comment on above: Performed By: #### L [id number] #### [employer] Collection Worker: CYNDI LILLY ([id number]) [facility] ([facility]) [address] [place] [address] [place] Neutrophils/100 WBC (Bld) 82.6 % High 38.0-82.0 [facility] Comment on above: Performed By: #### L [id number] #### [employer] Collection Worker: CYNDI DRIVERRADHA ([id number]) [facility] ([facility]) [address] [place] [address] [place] NRBC 0.0 /100 WBCs Normal 0.0-2.0 [facility] Comment on above: Performed By: #### L [id number] #### [employer] Collection Worker: CYNDI LILLY ([id number]) [facility] ([facility]) [address] Platelet mean volume (Bld) [Entitic vol] 10.7 fL Normal 9.0-12.7 [facility] Comment on above: Performed By: #### L [id number] #### [employer] Collection Worker: CYNDI LILLY ([id number]) [facility] [address] Platelets (Bld) [#/Vol] 148 10*3/uL Normal 140-440 [facility] Comment on above: Performed By: #### L [id number] #### [employer] Collection Worker: CYNDI LILLY ([id number]) [facility] ([facility]) [address] RBC (Bld) [#/Vol] 4.29 10*6/uL Low 4.40-5.90 [facility] Comment on above: Performed By: #### L [id number] #### [employer] Collection Worker: CYNDI LILLY ([id number]) [facility] ([facility] [address] WBC (Bld) [#/Vol] 10.7 10*3/uL Normal 3.6-10.7 [facility] Comment on above: Performed By: #### L [id number] #### [employer] Collection Worker: CYNDI LILLY ([id number]) [facility] [address] COMPREHENSIVE METABOLIC PANE Reji 10-02-2023 Albumin [Mass/Vol] 3.7 g/dL Normal 3.5-5.0 [facility] Comment on above: Performed By: #### L AB17, [id number] ####[employer] Collection Worker: CYNDI LILLY ([id number])[facility] ([facility])[address] ALP [Catalytic activity/Vol] 78 U/L Normal 38-126 [facility] Comment on above: Performed By: #### Alban SMITH, [id number] ####[employer] Collection Worker: CYNDI LILLY ([id number])[facility] ([facility])[address] ALT [Catalytic activity/Vol] 21 U/L Normal 0-49 [facility] Comment on above: Performed By: #### Alban SMITH, [id number] ####[employer] Collection Worker: CYNDI LILLY ([id number])[facility] ([facility])[address] Anion gap [Moles/Vol] 10 mmol/L Normal 3-13 [facility] Comment on above: Performed By: #### Alban SMITH, [id number] ####[employer] Collection Worker: CYNDI LILLY ([id number])[facility] ([facility])[address] AST [Catalytic activity/Vol] 29 U/L Normal 15-46 [facility] Comment on above: Performed By: #### Alban SMITH, [id number] ####[employer] Collection Worker: CYNDI LILLY ([id number])[facility] ([facility])[address] Bilirubin [Mass/Vol] 1.1 mg/dL Normal 0.2-1.3 [facility] Comment on above: Performed By: #### Alban SMITH, [id number] ####[employer] Collection Worker: CYNDI LILLY ([id number])[facility] ([facility])[address] Calcium [Mass/Vol] 7.8 mg/dL Low 8.4-10.4 [facility] Comment on above: Performed By: #### L AB17, [id number] ####[employer] Collection Worker: CYNDI LILLY ([id number])[facility] ([facility])[address] [place] [address] [place] Chloride [Moles/Vol] 102 mmol/L Normal 98-107 [facility] Comment on above: Performed By: #### Alban YEH17, [id number] ####[employer] Collection Worker: CYNDI LILLY ([id number])[facility] ([facility])[address] CO2 [Moles/Vol] 23 mmol/L Normal 22-30 [facility] Comment on above: Performed By: #### Alban YEH17, [id number] ####[employer] Collection Worker: CYNDI LILLY ([id number])[facility] ([facility])[address] Creatinine [Mass/Vol] 0.58 mg/dL Low 0.66-1.25 [facility] Comment on above: Performed By: #### Alban YEH17, [id number] ####[employer] Collection Worker: CYNDI LILLY ([id number])[facility] ([facility] GLOMERULAR FILTRATION RATE ML/MIN/1.73 SQ M.PREDICTED >90.0 Normal >60.0 [facility] Comment on above: Result Comment: Calc ulation based on the Chronic Kidney Disease Epidemiology Collaboration (CKD-EPI) equation refit without adjustment for race Performed By: #### Alban YEH17, [id number] ####[employer] Collection Worker: CYNDI LILLY ([id number])[facility] ([facility])[address] Glucose [Mass/Vol] 111 mg/dL High 70-100 [facility] Comment on above: Performed By: #### L AB17, [id number] ####[employer] Collection Worker: CYNDI LILLY ([id number])[facility] (HLAB)[address] Potassium [Moles/Vol] 4.0 mmol/L Normal 3.5-5.1 [facility] Comment on above: Performed By: #### L AB17, [id number] ####[employer] Collection Worker: CYNDI LILLY ([id number])[facility] [place] ([facility])[address] [place] [address] Protein [Mass/Vol] 6.5 g/dL Normal 6.3-8.2 [facility] Comment on above: Performed By: #### L AB17, [id number] ####[employer] Collection Worker: CYNDI DRIVERRADHA ([id number])[facility] [place] ([facility])[address] [place] [address] Sodium [Moles/Vol] 135 mmol/L Normal 135-145 [facility] Comment on above: Performed By: #### L AB17, [id number] ####[employer] Collection Worker: CYNDI DRIVERRADHA ([id number])[facility] ([facility] [place] [address] Urea nitrogen [Mass/Vol] 18 mg/dL Normal 9-20 [facility] Comment on above: Performed By: #### L AB17, [id number] ####[employer] Collection Worker: CYNDI SMITHEASTON ([id number])[facility] ([facility])[address] [place] [address] CT HEAD WO IV CONTRASTon CT HEAD WO IV CONTRAST Patient Name: KATHYA YU : 1955 [id number] Exam Date/Time: 10/02/2023 11:03 Procedure: CT HEAD WO IV CONTRAST Ordering Provider: TOLEDO AMY Reason For Exam: Neuro deficit, acute, stroke suspected EXAMINATION: CT HEAD WO IV CONTRAST HISTORY: Neuro deficit, acute, stroke suspected - - - - - [id number] - - - - TECHNIQUE: CT head [...] she has seen him for that day, shift production associate did not report any problems. EMS states [...] has no complaints at this time. Normal [facility] CT Head WO contraston [address] evidence of an acute intracranial abnormality. Report Dictated on Electronically Signed By: Maria Eugenia Ruiz MD Electronically Signed Date/Time: 10/02/2023 11:09 AM T [facility] Patient Name: KATHYA HOOPER : 1955 [facility] [id number] Exam Date/Time: 10/02/2023 11:03 Procedure: CT HEAD WO IV CONTRAST Ordering Provider: TOLEDO AMY Reason For Exam: Neuro deficit, acute, stroke suspected EXAMINATION: CT HEAD WO IV CONTRAST HISTORY: Neuro deficit, acute, stroke suspected - - - - - [id number] - - - - TECHNIQUE: CT head [...] 10/02/2023 Patient Name: KATHYA HOOPER : 1955 [id number] Exam Date/Time: 10/02/2023 11:03 Procedure: CT HEAD WO IV CONTRAST Ordering Provider: TOLEDO AMY Reason For Exam: Neuro deficit, acute, stroke suspected EXAMINATION: CT HEAD WO IV CONTRAST HISTORY: Neuro deficit, acute, stroke suspected - - - - - [id number] - - - - TECHNIQUE: CT head [...] Electronically Signed Date/Time: 10/02/2023 11:09 AM EDT [facility] Radiology Study observation (narrative) [facility] CT Head WO contrastOrdered B y: Maria Eugenia Ruiz on 10-02-2023 [facility] Work Phone: Comprehensive metabolic 1998 panelon 10-02-2023 Albumin [Mass/Vol] 3.7 g/dL 3.5 - 5.0 g/dL [facility] ALP [Catalytic activity/Vol] 78 U/L 38 - 126 U/L [facility] ALT [Catalytic activity/Vol] 21 U/L 0 - 49 U/L [facility] Anion gap [Moles/Vol] 10 mmol/L 3 - 13 mmol/L [facility] AST [Catalytic activity/Vol] 29 U/L 15 - 46 U/L [facility] Bilirubin [Mass/Vol] 1.1 mg/dL 0.2 - 1 .3 mg/dL [facility] Calcium [Mass/Vol] 7.8 mg/dL Low 8.4 - 10. 4 mg/dL [facility] Chloride [Moles/Vol] 102 mmol/L 98 - 10 7 mmol/L [facility] CO2 [Moles/Vol] 23 mmol/L 22 - 30 mmol/L [facility] Creatinine [Mass/Vol] 0.58 mg/dL Low 0.66 - 1.25 mg/dL [facility] GFR/1.73 sq M.predicted MDRD (S/P/Bld) [Vol rate/Area] - PINF [facility] Comment on above: Calculation based on the Chronic Kidney Disease Epidemiology Collaboration (CKD-EPI) equation refit without adjustment for race Glucose [Mass/Vol] 111 mg/dL High 70 - 100 mg/dL [facility] Interpretation and review of laboratory results Abnormal [facility] Potassium [Moles/Vol] 4.0 mmol/L 3.5 - 5.1 mmol/L [facility] Protein [Mass/Vol] 6.5 g/dL 6.3 - 8.2 g/dL [facility] Sodium [Moles/Vol] 135 mmol/L 135 - 145 mmol/L [facility] Urea nitrogen [Mass/Vol] 18 mg/dL 9 - 20 mg/dL [facility] ECG 12-LEADon 10-02-2023 ECG 12-LEAD IMPRESSION: Sinus tachycardia Left bundle branch block ST elevation secondary to IVCD Electronically Signed On 10-02-2023 12:40:15 EDT by Fei Farooq Normal [facility] ED Nursing Noteon 10-02-2023 ED Nursing Note [facility] at bedside at this time Mami Lantigua RN 10/02/23 1427 Normal [facility] ED Nursing Note This RN gave report to Marnie at [facility] at this time Mami Lantigua RN 10/02/23 1358 Normal [facility] ED Nursing Note This RN went to evaluate patient, was on 2L o2 and does not wear at baseline, plan is dc, this RN turned o2 off to trial patient, spo2 monitor on Mami Lantigua RN 10/02/23 1325 Normal [facility] ED Nursing Note Pt to ct via cart Eloisa Alfaro RN 10/02/23 1043 [facility] ED Nursing Note Pt was brought in vi a [place] [facility] from [facility] [place] for Left sided facial droop. Per EMS nurse is new and does not know patient very well but he is A&O x 2 at baseline. Per EMS the nurse states it was 20 mins ago. Contacted nurse that was caring for him and she states that was the first time she has seen him for that day, shift production associate did not report any problems. EMS states [...] the facility. Hx of schizophrenia. BS 131. [facility] ED Provider Noteon ED Provider Note [facility] ED eMERGENCY dEPARTMENT eNCOUnter Pt [...] to the emergency department from a local long term facility where he is currently a resident. [...] History: Diagnosis Date TREVER (acute kidney injury) ([facility]) ([facility]) Alcohol abuse 07/08/2018 Anxiety C1 spinal cord injury ([facility]) ([facility]) Depression Fall 06/2018 Schizophrenia ([facility]) SURGICALHISTORY Past Surgical History: Procedure Laterality Date [...] EmergencyPhysician): Interpret (more content not included)... Normal [facility] ED Provider Note Emergency Department Encounter [facility] ED Patient: Kathya Hooper : [...] [employer] Fei Farooq MD 10/02/23 1129 Normal [facility] Laboratory - Chemistry and C hemistry - challengeon 10-02-2023 Troponin I.cardiac [Mass/Vol] ng/mL NINF - 0.034 ng/mL [facility] Laboratory - Coagulationon 0 10-02-2023 aPTT Coag (PPP) [Time] 29.6 s 20.0 - 30.5 s [facility] INR Coag (PPP) [Relative time] 1.1 {INR} 0.9 - 1.1 [facility] Comment on above: Recommended Anticoag ulant [...] [Time] 11.6 s 9.0 - 12.0 s [facility] No Panel Informationon 10-01 Heart Rate 103 bpm [facility] P Filer 48 degrees [facility] MT Interval 172 ms [facility] QRS Filer -38 degrees [facility] QRSD [facility]val [facility]val 405 ms [facility] QTC Interval 532 ms [facility] T Wave Filer 109 degrees [facility] Sinus tachycardia Left bundle branch block ST elevation secondary to IVCD Electronically Signed On 10-02-2023 12:40:15 EDT by Fei Farooq CV Fei Lopez MD - 10/02/2023 IMPRESSION: Sinus tachycardia Left bundle branch block ST elevation secondary to IVCD Electronically Signed On 10-02-2023 12:40:15 EDT by Fei Farooq [facility] Interpretation and review of laboratory results Normal [facility] PROTIME AND APTTon aPTT Coag (Bld) [Time] 29.6 s Normal 20.0-30.5 [facility] Comment on above: Performed By: #### L [id number] ####[employer] Collection Worker: CYNDI LILLY ([id number])[facility] ([facility])[address] [place] [address] INR Coag (PPP) [Relative time] 1.1 {INR} Normal 0.9-1.1 [facility] Comment on above: Result Comment: Yefri [...] prevent Myocardial Infarction Performed By: #### L [id number] ####[employer] Collection Worker: CYNDI LILLY ([id number])[facility] ([facility])[address] [place] [address] PT Coag (PPP) [Time] 11.6 s Normal 9.0-12.0 [facility] Comment on above: Performed By: #### L [id number] ####[employer] Collection Worker: CYNDI LILLY ([id number])[facility] ([facility])[address] [place] [address] TROPONIN, WITH SERIAL REFLEX on 10-02-2023 Troponin I.cardiac [Mass/Vol] ng/mL Normal <0.034 [facility] Comment on above: Result Comment: SHARON Stevens COMMENTS: Patients with high levels of Biotin oral intake (ie >5 mg/day) may have falsely decreased Troponin levels. Performed By: #### L AB17, [id number] ####[employer] Collection Worker: CYNDI LILLY ([id number])[facility] ([facility])[address] [place] [address] Troponin I.cardiac [Mass/Vol ]on 10-02-2023 Interpretation and review of laboratory results Normal [facility] Patients with high levels of Biotin oral intake (ie >5 mg/day) may have falsely decreased Troponin levels. [facility] XR Chest Single viewon 10-01 No acute cardiopulmonary disease. Report Dictated on Electronically Signed By: Maria Eugenia Ruiz MD Electronically Signed Date/Time: 10/02/2023 11:06 AM EDT [facility] Patient Name: KATHYA HOOPER : 1955 [...] spine and shoulders. No acute osseous findings. [facility] Maria Eugenia Ruiz MD - 10/02/2023 [...] Electronically Signed Date/Time: 10/02/2023 11:06 AM EDT [facility] Radiology Study observation (narrative) [facility] Absolute lymphocyte countOrd ered By: Renard Burgos on 08-07-2023 Lymphocytes Auto (Unsp spec) [#/Vol] 2.23 10*3/uL 0.83-4.51 [facility] Automated lymphocyte count a s percentage of total leukocytesOrdered By: Renard Burgos on 08-07-2023 Lymphocytes/100 WBC Auto (Unsp spec) 23.9 % 19-41 [facility] Basophil percentageOrdered B y: Renard Burgos on 08-07-2023 Basophils/100 WBC (Bld) 0.4 % 0-1 [facility] Eosinophils/100 WBC (Bld) 0.4 % 0-5 [facility] Hemoglobin (Bld) [Mass/Vol] 13.9 g/dL 13.0-16.5 [facility] Monocytes/100 WBC (Bld) 8.0 % 0-10 [facility] Neutrophils (Bld) [#/Vol] 6.2 10*3/uL 2.0-7.7 [facility] Neutrophils/100 WBC (Bld) 66.9 % 47-70 [facility] WBC (Bld) [#/Vol] 9.3 10*3/uL 4.4-11.0 [facility] Determination of erythrocyte mean corpuscular volume (MCV)Ordered By: Renard Burgos on 08-07-2023 MCV (RBC) [Entitic vol] 90.0 fL 80-94 [facility] Erythrocyte distribution wid th ratioOrdered By: Renard Burgos on 08-07-2023 Erythrocyte distribution width (RBC) [Ratio] 13.0 % 11.6-14.6 [facility] Erythrocyte distribution wid th standard deviationOrdered By: Renard Burgos on 08-07-2023 Erythrocyte distribution width (RBC) [Entitic vol] 42.5 fL 35.1-43.9 [facility] Hematocrit Auto (Bld) [Volum e fraction]Ordered By: Renard Burgos on 08-07-2023 Hematocrit (Bld) [Volume fraction] 42.5 % 40-54 [facility] Immature granulocytes/100 WB C Auto (Bld)Ordered By: Renard Burgos on 08-07-2023 Immature granulocytes/100 WBC (Bld) 0.400 % 0.0-0.9 [facility] Comment on above: IG% - Immature Granu locytes (promyelocytes, myelocytes and metamyelocytes) > 1% indicates that a LEFT SHIFT is Present. Laboratory - Hematology and Cell countsOrdered By: Renard Burgos on 08-07-2023 MCH (RBC) [Entitic mass] 29.4 pg 27.0-32.0 [facility] MCHC (RBC) [Mass/Vol] 32.7 g/dL 32-36 [facility] Nucleated RBC/100 WBC (Bld) [Ratio] 0 % 0-5 [facility] Platelet mean volume (Bld) [Entitic vol] 10.7 fL 6.2-12.0 [facility] Platelets (Bld) [#/Vol] 210 10*3/uL 150-450 [facility] RBC Auto (Bld) [#/Vol]Ordere d By: Renard Burgos on 08-07-2023 RBC (Bld) [#/Vol] 4.72 10*6/uL 4.6-6.2 [facility] Absolute lymphocyte countOrd ered By: Renard Burgos on 07-31-2023 Lymphocytes Auto (Unsp spec) [#/Vol] 2.04 10*3/uL 0.83-4.51 [facility] Automated lymphocyte count a s percentage of total leukocytesOrdered By: Renard Burgos on 07-31-2023 Lymphocytes/100 WBC Auto (Unsp spec) 24.2 % 19-41 [facility] Basophil percentageOrdered B y: Renard Burgos on 07-31-2023 Basophils/100 WBC (Bld) 0.6 % 0-1 [facility] Eosinophils/100 WBC (Bld) 0.6 % 0-5 [facility] Hemoglobin (Bld) [Mass/Vol] 13.9 g/dL 13.0-16.5 [facility] Monocytes/100 WBC (Bld) 8.5 % 0-10 [facility] Neutrophils (Bld) [#/Vol] 5.5 10*3/uL 2.0-7.7 [facility] Neutrophils/100 WBC (Bld) 65.7 % 47-70 [facility] WBC (Bld) [#/Vol] 8.4 10*3/uL 4.4-11.0 [facility] Determination of erythrocyte mean corpuscular volume (MCV)Ordered By: Renard Burgos on 07-31-2023 MCV (RBC) [Entitic vol] 89.7 fL 80-94 [facility] Erythrocyte distribution wid th ratioOrdered By: Renard Burgos on 07-31-2023 Erythrocyte distribution width (RBC) [Ratio] 12.8 % 11.6-14.6 [facility] Erythrocyte distribution wid th standard deviationOrdered By: Renard Burgos on 07-31-2023 Erythrocyte distribution width (RBC) [Entitic vol] 42.2 fL 35.1-43.9 [facility] Hematocrit Auto (Bld) [Volum e fraction]Ordered By: Renard Burgos on 07-31-2023 Hematocrit (Bld) [Volume fraction] 41.7 % 40-54 [facility] Immature granulocytes/100 WB C Auto (Bld)Ordered By: Renard Burgos on 07-31-2023 Immature granulocytes/100 WBC (Bld) 0.400 % 0.0-0.9 [facility] Comment on above: IG% - Immature Granu locytes (promyelocytes, myelocytes and metamyelocytes) > 1% indicates that a LEFT SHIFT is Present. Laboratory - Hematology and Cell countsOrdered By: Renard Burgos on 07-31-2023 MCH (RBC) [Entitic mass] 29.9 pg 27.0-32.0 [facility] MCHC (RBC) [Mass/Vol] 33.3 g/dL 32-36 [facility] Nucleated RBC/100 WBC (Bld) [Ratio] 0 % 0-5 [facility] Platelet mean volume (Bld) [Entitic vol] 10.6 fL 6.2-12.0 [facility] Platelets (Bld) [#/Vol] 201 10*3/uL 150-450 [facility] RBC Auto (Bld) [#/Vol]Ordere d By: Renard Burgos on 07-31-2023 RBC (Bld) [#/Vol] 4.65 10*6/uL 4.6-6.2 [facility] Absolute lymphocyte countOrd ered By: Renard Burgos on 07-24-2023 Lymphocytes Auto (Unsp spec) [#/Vol] 2.00 10*3/uL 0.83-4.51 [facility] Automated lymphocyte count a s percentage of total leukocytesOrdered By: Renard Burgos on 07-24-2023 Lymphocytes/100 WBC Auto (Unsp spec) 26.2 % 19-41 [facility] Basophil percentageOrdered B y: Renard Burgos on 07-24-2023 Basophils/100 WBC (Bld) 0.7 % 0-1 [facility] Eosinophils/100 WBC (Bld) 0.7 % 0-5 [facility] Hemoglobin (Bld) [Mass/Vol] 14.2 g/dL 13.0-16.5 [facility] Monocytes/100 WBC (Bld) 6.4 % 0-10 [facility] Neutrophils (Bld) [#/Vol] 5.0 10*3/uL 2.0-7.7 [facility] Neutrophils/100 WBC (Bld) 65.6 % 47-70 [facility] WBC (Bld) [#/Vol] 7.6 10*3/uL 4.4-11.0 [facility] Determination of erythrocyte mean corpuscular volume (MCV)Ordered By: Renard Burgos on 07-24-2023 MCV (RBC) [Entitic vol] 89.8 fL 80-94 [facility] Erythrocyte distribution wid th ratioOrdered By: Renard Burgos on 07-24-2023 Erythrocyte distribution width (RBC) [Ratio] 12.8 % 11.6-14.6 [facility] Erythrocyte distribution wid th standard deviationOrdered By: Renard Burgos on 07-24-2023 Erythrocyte distribution width (RBC) [Entitic vol] 42.0 fL 35.1-43.9 [facility] Hematocrit Auto (Bld) [Volum e fraction]Ordered By: Renard Burgos on 07-24-2023 Hematocrit (Bld) [Volume fraction] 43.3 % 40-54 [facility] Immature granulocytes/100 WB C Auto (Bld)Ordered By: Renard Burgos on 07-24-2023 Immature granulocytes/100 WBC (Bld) 0.400 % 0.0-0.9 [facility] Comment on above: IG% - Immature Granu locytes (promyelocytes, myelocytes and metamyelocytes) > 1% indicates that a LEFT SHIFT is Present. Laboratory - Hematology and Cell countsOrdered By: Renard Burgos on 07-24-2023 MCH (RBC) [Entitic mass] 29.5 pg 27.0-32.0 [facility] MCHC (RBC) [Mass/Vol] 32.8 g/dL 32-36 [facility] Nucleated RBC/100 WBC (Bld) [Ratio] 0 % 0-5 [facility] Platelet mean volume (Bld) [Entitic vol] 11.0 fL 6.2-12.0 [facility] Platelets (Bld) [#/Vol] 215 10*3/uL 150-450 [facility] RBC Auto (Bld) [#/Vol]Ordere d By: Renard Burgos on 07-24-2023 RBC (Bld) [#/Vol] 4.82 10*6/uL 4.6-6.2 [facility] Absolute lymphocyte countOrd ered By: Renard Burgos on 07-17-2023 Lymphocytes Auto (Unsp spec) [#/Vol] 2.22 10*3/uL 0.83-4.51 [facility] Automated lymphocyte count a s percentage of total leukocytesOrdered By: Renard Burgos on 07-17-2023 Lymphocytes/100 WBC Auto (Unsp spec) 25.4 % 19-41 [facility] Basophil percentageOrdered B y: Renard Burgos on 07-17-2023 Basophils/100 WBC (Bld) 0.5 % 0-1 [facility] Cholesterol [Mass/Vol] 126 mg/dL <200 [facility] Comment on above: <200 mg/dL Desirable 200-240 mg/dL Borderline >240 mg/dL High Risk Eosinophils/100 WBC (Bld) 0.6 % 0-5 [facility] Hemoglobin (Bld) [Mass/Vol] 14.0 g/dL 13.0-16.5 [facility] Monocytes/100 WBC (Bld) 6.6 % 0-10 [facility] Neutrophils (Bld) [#/Vol] 5.8 10*3/uL 2.0-7.7 [facility] Neutrophils/100 WBC (Bld) 66.4 % 47-70 [facility] Triglyceride [Mass/Vol] 176 mg/dL <199 [facility] Comment on above: The drugs N-Acetylcy steine and Metamizole may falsely depress this assay.Serum Triglycerides Reference Interval Normal <150 mg/dL Borderline high 150 - 199 mg/dL High 200 - 499 mg/dL Very High > or = 500 mg/dL WBC (Bld) [#/Vol] 8.7 10*3/uL 4.4-11.0 [facility] Determination of erythrocyte mean corpuscular volume (MCV)Ordered By: Renard Burgos on 07-17-2023 MCV (RBC) [Entitic vol] 90.5 fL 80-94 [facility] Erythrocyte distribution wid th ratioOrdered By: Renard Burgos on 07-17-2023 Erythrocyte distribution width (RBC) [Ratio] 12.4 % 11.6-14.6 [facility] Erythrocyte distribution wid th standard deviationOrdered By: Renard Burgos on 07-17-2023 Erythrocyte distribution width (RBC) [Entitic vol] 41.1 fL 35.1-43.9 [facility] Hematocrit Auto (Bld) [Volum e fraction]Ordered By: Renard Burgos on 07-17-2023 Hematocrit (Bld) [Volume fraction] 42.8 % 40-54 [facility] Immature granulocytes/100 WB C Auto (Bld)Ordered By: Renard Burgos on 07-17-2023 Immature granulocytes/100 WBC (Bld) 0.500 % 0.0-0.9 [facility] Comment on above: IG% - Immature Granu locytes (promyelocytes, myelocytes and metamyelocytes) > 1% indicates that a LEFT SHIFT is Present. Laboratory - Chemistry and C hemistry - challengeOrdered By: Renard Burgos on 07-17-2023 Cholesterol in HDL [Mass/Vol] 28 mg/dL >40 [facility] Comment on above: The drugs N-Acetylcy steine and Metamizole may falsely depress this assay. Reference Range HDL <40 mg/dL Low HDL Cholesterol HDL >or= 60 mg/dL High HDL Cholesterol Cholesterol in LDL [Mass/Vol] 63 mg/dL 0-130 [facility] Laboratory - Hematology and Cell countsOrdered By: Renard Burgos on 07-17-2023 MCH (RBC) [Entitic mass] 29.6 pg 27.0-32.0 [facility] MCHC (RBC) [Mass/Vol] 32.7 g/dL 32-36 [facility] Nucleated RBC/100 WBC (Bld) [Ratio] 0 % 0-5 [facility] Platelet mean volume (Bld) [Entitic vol] 10.9 fL 6.2-12.0 [facility] Platelets (Bld) [#/Vol] 193 10*3/uL 150-450 [facility] No Panel InformationOrdered By: Renard Burgos on 07-17-2023 Vitamin D 25-Hydroxy 33.1 ng/mL [facility] [place] Comment on above: Vitamin D 25(OH) Sta tus Range Deficiency <20 ng/mL (50nmol/L) Insufficiency 20 - 30 ng/mL (50 - 75 nmol/L) Sufficiency 30 - 100 ng/mL (75 - 250 nmol/L) Toxicity >100 ng/mL (>250 nmol/L) VLDL Cholesterol 35 mg/dL 5-40 [facility] RBC Auto (Bld) [#/Vol]Ordere d By: Renard Burgos on 07-17-2023 RBC (Bld) [#/Vol] 4.73 10*6/uL 4.6-6.2 [facility] Absolute lymphocyte countOrd ered By: Renard Burgos on 07-10-2023 Lymphocytes Auto (Unsp spec) [#/Vol] 2.14 10*3/uL 0.83-4.51 [facility] Automated lymphocyte count a s percentage of total leukocytesOrdered By: Renard Burgos on 07-10-2023 Lymphocytes/100 WBC Auto (Unsp spec) 24.7 % 19-41 [facility] Basophil percentageOrdered B y: Renard Burgos on 07-10-2023 Basophils/100 WBC (Bld) 0.3 % 0-1 [facility] Eosinophils/100 WBC (Bld) 0.3 % 0-5 [facility] Hemoglobin (Bld) [Mass/Vol] 13.8 g/dL 13.0-16.5 [facility] Monocytes/100 WBC (Bld) 7.8 % 0-10 [facility] Neutrophils (Bld) [#/Vol] 5.8 10*3/uL 2.0-7.7 [facility] Neutrophils/100 WBC (Bld) 66.4 % 47-70 [facility] WBC (Bld) [#/Vol] 8.7 10*3/uL 4.4-11.0 [facility] Determination of erythrocyte mean corpuscular volume (MCV)Ordered By: Renard Burgos on 07-10-2023 MCV (RBC) [Entitic vol] 88.9 fL 80-94 [facility] Erythrocyte distribution wid th ratioOrdered By: Renard Burgos on 07-10-2023 Erythrocyte distribution width (RBC) [Ratio] 12.6 % 11.6-14.6 [facility] Erythrocyte distribution wid th standard deviationOrdered By: Renard Burgos on 07-10-2023 Erythrocyte distribution width (RBC) [Entitic vol] 40.6 fL 35.1-43.9 [facility] Hematocrit Auto (Bld) [Volum e fraction]Ordered By: Renard Burgos on 07-10-2023 Hematocrit (Bld) [Volume fraction] 41.0 % 40-54 [facility] Immature granulocytes/100 WB C Auto (Bld)Ordered By: Renard Burgos on 07-10-2023 Immature granulocytes/100 WBC (Bld) 0.500 % 0.0-0.9 [facility] Comment on above: IG% - Immature Granu locytes (promyelocytes, myelocytes and metamyelocytes) > 1% indicates that a LEFT SHIFT is Present. Laboratory - Hematology and Cell countsOrdered By: Renard Burgos on 07-10-2023 MCH (RBC) [Entitic mass] 29.9 pg 27.0-32.0 [facility] MCHC (RBC) [Mass/Vol] 33.7 g/dL 32-36 [facility] Nucleated RBC/100 WBC (Bld) [Ratio] 0 % 0-5 [facility] Platelet mean volume (Bld) [Entitic vol] 11.0 fL 6.2-12.0 [facility] Platelets (Bld) [#/Vol] 215 10*3/uL 150-450 [facility] RBC Auto (Bld) [#/Vol]Ordere d By: eRnard Burgos on 07-10-2023 RBC (Bld) [#/Vol] 4.61 10*6/uL 4.6-6.2 [facility] Absolute lymphocyte countOrd ered By: Renard Burgos on 07-03-2023 Lymphocytes Auto (Unsp spec) [#/Vol] 1.84 10*3/uL 0.83-4.51 [facility] Automated lymphocyte count a s percentage of total leukocytesOrdered By: Renard Burgos on 07-03-2023 Lymphocytes/100 WBC Auto (Unsp spec) 16.9 % 19-41 [facility] Basophil percentageOrdered B y: Renard Burgos on 07-03-2023 Basophil percentage 3.17 ng/mL 0.0-4.0 [facility] Comment on above: This test was perfor med using the TPSA assay method for the[employer]act[employer] chemistry system. Values obtained with differentassay methods cannot be used interchangably.When changing PSA assays in the course of monitoring apatient, additional sequential testing should be carriedout to confirm baseline values. Basophils/100 WBC (Bld) 0.5 % 0-1 [facility] Eosinophils/100 WBC (Bld) 0.4 % 0-5 [facility] Hemoglobin (Bld) [Mass/Vol] 13.2 g/dL 13.0-16.5 [facility] Monocytes/100 WBC (Bld) 7.4 % 0-10 [facility] Neutrophils (Bld) [#/Vol] 8.1 10*3/uL 2.0-7.7 [facility] Neutrophils/100 WBC (Bld) 74.4 % 47-70 [facility] WBC (Bld) [#/Vol] 10.9 10*3/uL 4.4-11.0 [facility] Determination of erythrocyte mean corpuscular volume (MCV)Ordered By: Renard Burgos on 07-03-2023 MCV (RBC) [Entitic vol] 89.8 fL 80-94 [facility] Erythrocyte distribution wid th ratioOrdered By: Renard Burgos on 07-03-2023 Erythrocyte distribution width (RBC) [Ratio] 12.7 % 11.6-14.6 [facility] Erythrocyte distribution wid th standard deviationOrdered By: Renard Burgos on 07-03-2023 Erythrocyte distribution width (RBC) [Entitic vol] 41.9 fL 35.1-43.9 [facility] Hematocrit Auto (Bld) [Volum e fraction]Ordered By: Renard Burgos on 07-03-2023 Hematocrit (Bld) [Volume fraction] 40.3 % 40-54 [facility] Immature granulocytes/100 WB C Auto (Bld)Ordered By: Renard Burgos on 07-03-2023 Immature granulocytes/100 WBC (Bld) 0.400 % 0.0-0.9 [facility] Comment on above: IG% - Immature Granu locytes (promyelocytes, myelocytes and metamyelocytes) > 1% indicates that a LEFT SHIFT is Present. Laboratory - Hematology and Cell countsOrdered By: Renard Burgos on 07-03-2023 MCH (RBC) [Entitic mass] 29.4 pg 27.0-32.0 [facility] MCHC (RBC) [Mass/Vol] 32.8 g/dL 32-36 [facility] Nucleated RBC/100 WBC (Bld) [Ratio] 0 % 0-5 [facility] Platelet mean volume (Bld) [Entitic vol] 11.2 fL 6.2-12.0 [facility] Platelets (Bld) [#/Vol] 191 10*3/uL 150-450 [facility] RBC Auto (Bld) [#/Vol]Ordere d By: Renard Burgos on 07-03-2023 RBC (Bld) [#/Vol] 4.49 10*6/uL 4.6-6.2 [facility] Absolute lymphocyte countOrd ered By: Renard Burgos on 06-26-2023 Lymphocytes Auto (Unsp spec) [#/Vol] 2.23 10*3/uL 0.83-4.51 [facility] Automated lymphocyte count a s percentage of total leukocytesOrdered By: Renard Burgos on 06-26-2023 Lymphocytes/100 WBC Auto (Unsp spec) 27.3 % 19-41 [facility] Basophil percentageOrdered B y: Renard Burgos on 06-26-2023 Basophils/100 WBC (Bld) 0.5 % 0-1 [facility] Eosinophils/100 WBC (Bld) 0.7 % 0-5 [facility] Hemoglobin (Bld) [Mass/Vol] 13.7 g/dL 13.0-16.5 [facility] Monocytes/100 WBC (Bld) 9.5 % 0-10 [facility] Neutrophils (Bld) [#/Vol] 5.1 10*3/uL 2.0-7.7 [facility] Neutrophils/100 WBC (Bld) 61.8 % 47-70 [facility] WBC (Bld) [#/Vol] 8.2 10*3/uL 4.4-11.0 [facility] Determination of erythrocyte mean corpuscular volume (MCV)Ordered By: Renard Burgos on 06-26-2023 MCV (RBC) [Entitic vol] 92.2 fL 80-94 [facility] Erythrocyte distribution wid th ratioOrdered By: Renard Burgos on 06-26-2023 Erythrocyte distribution width (RBC) [Ratio] 12.7 % 11.6-14.6 [facility] Erythrocyte distribution wid th standard deviationOrdered By: Renard Burgos on 06-26-2023 Erythrocyte distribution width (RBC) [Entitic vol] 42.8 fL 35.1-43.9 [facility] Hematocrit Auto (Bld) [Volum e fraction]Ordered By: Renard Burgos on 06-26-2023 Hematocrit (Bld) [Volume fraction] 42.6 % 40-54 [facility] Immature granulocytes/100 WB C Auto (Bld)Ordered By: Renard Burgos on 06-26-2023 Immature granulocytes/100 WBC (Bld) 0.200 % 0.0-0.9 [facility] Comment on above: IG% - Immature Granu locytes (promyelocytes, myelocytes and metamyelocytes) > 1% indicates that a LEFT SHIFT is Present. Laboratory - Hematology and Cell countsOrdered By: Renard Burgos on 06-26-2023 MCH (RBC) [Entitic mass] 29.7 pg 27.0-32.0 [facility] MCHC (RBC) [Mass/Vol] 32.2 g/dL 32-36 [facility] Nucleated RBC/100 WBC (Bld) [Ratio] 0 % 0-5 [facility] Platelet mean volume (Bld) [Entitic vol] 11.0 fL 6.2-12.0 [facility] Platelets (Bld) [#/Vol] 182 10*3/uL 150-450 [facility] RBC Auto (Bld) [#/Vol]Ordere d By: Renard Burgos on 06-26-2023 RBC (Bld) [#/Vol] 4.62 10*6/uL 4.6-6.2 [facility] Absolute lymphocyte countOrd ered By: Renard Burgos on 06-19-2023 Lymphocytes Auto (Unsp spec) [#/Vol] 2.13 10*3/uL 0.83-4.51 [facility] Automated lymphocyte count a s percentage of total leukocytesOrdered By: Renard Burgos on 06-19-2023 Lymphocytes/100 WBC Auto (Unsp spec) 28.8 % 19-41 [facility] Basophil percentageOrdered B y: Renard Burgos on 06-19-2023 Basophils/100 WBC (Bld) 0.5 % 0-1 [facility] Eosinophils/100 WBC (Bld) 0.5 % 0-5 [facility] Hemoglobin (Bld) [Mass/Vol] 13.7 g/dL 13.0-16.5 [facility] Monocytes/100 WBC (Bld) 8.1 % 0-10 [facility] Neutrophils (Bld) [#/Vol] 4.6 10*3/uL 2.0-7.7 [facility] Neutrophils/100 WBC (Bld) 61.6 % 47-70 [facility] WBC (Bld) [#/Vol] 7.4 10*3/uL 4.4-11.0 [facility] Determination of erythrocyte mean corpuscular volume (MCV)Ordered By: Renard Burgos on 06-19-2023 MCV (RBC) [Entitic vol] 91.7 fL 80-94 [facility] Erythrocyte distribution wid th ratioOrdered By: Renard Burgos on 06-19-2023 Erythrocyte distribution width (RBC) [Ratio] 12.7 % 11.6-14.6 [facility] Erythrocyte distribution wid th standard deviationOrdered By: Renard Burgos on 06-19-2023 Erythrocyte distribution width (RBC) [Entitic vol] 42.8 fL 35.1-43.9 [facility] Hematocrit Auto (Bld) [Volum e fraction]Ordered By: Renard Burgos on 06-19-2023 Hematocrit (Bld) [Volume fraction] 43.1 % 40-54 [facility] Immature granulocytes/100 WB C Auto (Bld)Ordered By: Renard Burgos on 06-19-2023 Immature granulocytes/100 WBC (Bld) 0.500 % 0.0-0.9 [facility] Comment on above: IG% - Immature Granu locytes (promyelocytes, myelocytes and metamyelocytes) > 1% indicates that a LEFT SHIFT is Present. Laboratory - Hematology and Cell countsOrdered By: Renard Burgos on 06-19-2023 MCH (RBC) [Entitic mass] 29.1 pg 27.0-32.0 [facility] MCHC (RBC) [Mass/Vol] 31.8 g/dL 32-36 [facility] Nucleated RBC/100 WBC (Bld) [Ratio] 0 % 0-5 [facility] Platelet mean volume (Bld) [Entitic vol] 11.1 fL 6.2-12.0 [facility] Platelets (Bld) [#/Vol] 201 10*3/uL 150-450 [facility] RBC Auto (Bld) [#/Vol]Ordere d By: Renard Burgos on 06-19-2023 RBC (Bld) [#/Vol] 4.70 10*6/uL 4.6-6.2 [facility] Absolute lymphocyte countOrd ered By: Renard Burgos on 06-12-2023 Lymphocytes Auto (Unsp spec) [#/Vol] 2.17 10*3/uL 0.83-4.51 [facility] Automated lymphocyte count a s percentage of total leukocytesOrdered By: Renard Burgos on 06-12-2023 Lymphocytes/100 WBC Auto (Unsp spec) 26.7 % 19-41 [facility] Basophil percentageOrdered B y: Renard Burgos on 06-12-2023 Basophils/100 WBC (Bld) 0.4 % 0-1 [facility] Eosinophils/100 WBC (Bld) 0.5 % 0-5 [facility] Hemoglobin (Bld) [Mass/Vol] 13.5 g/dL 13.0-16.5 [facility] Monocytes/100 WBC (Bld) 9.0 % 0-10 [facility] Neutrophils (Bld) [#/Vol] 5.1 10*3/uL 2.0-7.7 [facility] Neutrophils/100 WBC (Bld) 63.0 % 47-70 [facility] WBC (Bld) [#/Vol] 8.1 10*3/uL 4.4-11.0 [facility] Determination of erythrocyte mean corpuscular volume (MCV)Ordered By: Renard Burgos on 06-12-2023 MCV (RBC) [Entitic vol] 91.3 fL 80-94 [facility] Erythrocyte distribution wid th ratioOrdered By: Renard Burgos on 06-12-2023 Erythrocyte distribution width (RBC) [Ratio] 12.6 % 11.6-14.6 [facility] Erythrocyte distribution wid th standard deviationOrdered By: Renard Burgos on 06-12-2023 Erythrocyte distribution width (RBC) [Entitic vol] 41.5 fL 35.1-43.9 [facility] Hematocrit Auto (Bld) [Volum e fraction]Ordered By: Renard Burgos on 06-12-2023 Hematocrit (Bld) [Volume fraction] 40.8 % 40-54 [facility] Immature granulocytes/100 WB C Auto (Bld)Ordered By: Renard Burgos on 06-12-2023 Immature granulocytes/100 WBC (Bld) 0.400 % 0.0-0.9 [facility] Comment on above: IG% - Immature Granu locytes (promyelocytes, myelocytes and metamyelocytes) > 1% indicates that a LEFT SHIFT is Present. Laboratory - Hematology and Cell countsOrdered By: Renard Burgos on 06-12-2023 MCH (RBC) [Entitic mass] 30.2 pg 27.0-32.0 [facility] MCHC (RBC) [Mass/Vol] 33.1 g/dL 32-36 [facility] Nucleated RBC/100 WBC (Bld) [Ratio] 0 % 0-5 [facility] Platelet mean volume (Bld) [Entitic vol] 11.0 fL 6.2-12.0 [facility] Platelets (Bld) [#/Vol] 195 10*3/uL 150-450 [facility] RBC Auto (Bld) [#/Vol]Ordere d By: Renard Burgos on 06-12-2023 RBC (Bld) [#/Vol] 4.47 10*6/uL 4.6-6.2 [facility] Absolute lymphocyte countOrd ered By: Renard Burgos on 06-05-2023 Lymphocytes Auto (Unsp spec) [#/Vol] 2.05 10*3/uL 0.83-4.51 [facility] Automated lymphocyte count a s percentage of total leukocytesOrdered By: Renard Burgos on 06-05-2023 Lymphocytes/100 WBC Auto (Unsp spec) 24.1 % 19-41 [facility] Basophil percentageOrdered B y: Renard Burgos on 06-05-2023 Basophils/100 WBC (Bld) 0.5 % 0-1 [facility] Eosinophils/100 WBC (Bld) 0.5 % 0-5 [facility] Hemoglobin (Bld) [Mass/Vol] 13.6 g/dL 13.0-16.5 [facility] Monocytes/100 WBC (Bld) 7.6 % 0-10 [facility] Neutrophils (Bld) [#/Vol] 5.7 10*3/uL 2.0-7.7 [facility] Neutrophils/100 WBC (Bld) 66.9 % 47-70 [facility] WBC (Bld) [#/Vol] 8.5 10*3/uL 4.4-11.0 [facility] Determination of erythrocyte mean corpuscular volume (MCV)Ordered By: Renard Burgos on 06-05-2023 MCV (RBC) [Entitic vol] 89.7 fL 80-94 [facility] Erythrocyte distribution wid th ratioOrdered By: Renard Burgos on 06-05-2023 Erythrocyte distribution width (RBC) [Ratio] 12.6 % 11.6-14.6 [facility] Erythrocyte distribution wid th standard deviationOrdered By: Renard Burgos on 06-05-2023 Erythrocyte distribution width (RBC) [Entitic vol] 41.1 fL 35.1-43.9 [facility] Hematocrit Auto (Bld) [Volum e fraction]Ordered By: Renard Burgos on 06-05-2023 Hematocrit (Bld) [Volume fraction] 41.0 % 40-54 [facility] Immature granulocytes/100 WB C Auto (Bld)Ordered By: Renard Burgos on 06-05-2023 Immature granulocytes/100 WBC (Bld) 0.400 % 0.0-0.9 [facility] Comment on above: IG% - Immature Granu locytes (promyelocytes, myelocytes and metamyelocytes) > 1% indicates that a LEFT SHIFT is Present. Laboratory - Hematology and Cell countsOrdered By: Renard Burgos on 06-05-2023 MCH (RBC) [Entitic mass] 29.8 pg 27.0-32.0 [facility] MCHC (RBC) [Mass/Vol] 33.2 g/dL 32-36 [facility] Nucleated RBC/100 WBC (Bld) [Ratio] 0 % 0-5 [facility] Platelets (Bld) [#/Vol] 193 10*3/uL 150-450 [facility] Platelet mean volume Adam-Ec ker (Bld) [Entitic vol]Ordered By: Renard Burgos on 06-05-2023 Platelet mean volume (Bld) [Entitic vol] 10.8 fL 6.2-12.0 [facility] RBC Auto (Bld) [#/Vol]Ordere d By: Renard Burgos on 06-05-2023 RBC (Bld) [#/Vol] 4.57 10*6/uL 4.6-6.2 [facility] Absolute lymphocyte countOrd ered By: Renard Burgos on 05-29-2023 Lymphocytes Auto (Unsp spec) [#/Vol] 2.32 10*3/uL 0.83-4.51 [facility] Automated lymphocyte count a s percentage of total leukocytesOrdered By: Renard Burgos on 05-29-2023 Lymphocytes/100 WBC Auto (Unsp spec) 26.7 % 19-41 [facility] Basophil percentageOrdered B y: Renard Burgos on 05-29-2023 Basophils/100 WBC (Bld) 0.6 % 0-1 [facility] Eosinophils/100 WBC (Bld) 0.5 % 0-5 [facility] Hemoglobin (Bld) [Mass/Vol] 14.2 g/dL 13.0-16.5 [facility] Monocytes/100 WBC (Bld) 6.8 % 0-10 [facility] Neutrophils (Bld) [#/Vol] 5.7 10*3/uL 2.0-7.7 [facility] Neutrophils/100 WBC (Bld) 65.2 % 47-70 [facility] WBC (Bld) [#/Vol] 8.7 10*3/uL 4.4-11.0 [facility] Determination of erythrocyte mean corpuscular volume (MCV)Ordered By: Renard Burgos on 05-29-2023 MCV (RBC) [Entitic vol] 94.0 fL 80-94 [facility] Erythrocyte distribution wid th ratioOrdered By: Renard Burgos on 05-29-2023 Erythrocyte distribution width (RBC) [Ratio] 12.6 % 11.6-14.6 [facility] Erythrocyte distribution wid th standard deviationOrdered By: Renard Burgos on 05-29-2023 Erythrocyte distribution width (RBC) [Entitic vol] 43.0 fL 35.1-43.9 [facility] Hematocrit Auto (Bld) [Volum e fraction]Ordered By: Renard Burgos on 05-29-2023 Hematocrit (Bld) [Volume fraction] 45.4 % 40-54 [facility] Immature granulocytes/100 WB C Auto (Bld)Ordered By: Renard Burgos on 05-29-2023 Immature granulocytes/100 WBC (Bld) 0.200 % 0.0-0.9 [facility] Comment on above: IG% - Immature Granu locytes (promyelocytes, myelocytes and metamyelocytes) > 1% indicates that a LEFT SHIFT is Present. Laboratory - Hematology and Cell countsOrdered By: Renard Burgos on 05-29-2023 MCH (RBC) [Entitic mass] 29.4 pg 27.0-32.0 [facility] MCHC (RBC) [Mass/Vol] 31.3 g/dL 32-36 [facility] Nucleated RBC/100 WBC (Bld) [Ratio] 0 % 0-5 [facility] Platelets (Bld) [#/Vol] 116 10*3/uL 150-450 [facility] Platelet mean volume Adam-Ec ker (Bld) [Entitic vol]Ordered By: Renard Burgos on 05-29-2023 Platelet mean volume (Bld) [Entitic vol] 11.1 fL 6.2-12.0 [facility] RBC Auto (Bld) [#/Vol]Ordere d By: Renard Burgos on 05-29-2023 RBC (Bld) [#/Vol] 4.83 10*6/uL 4.6-6.2 [facility] Absolute lymphocyte countOrd ered By: Renard Burgos on 05-22-2023 Lymphocytes Auto (Unsp spec) [#/Vol] 2.40 10*3/uL 0.83-4.51 [facility] Automated lymphocyte count a s percentage of total leukocytesOrdered By: Renard Burgos on 05-22-2023 Lymphocytes/100 WBC Auto (Unsp spec) 25.6 % 19-41 [facility] Basophil percentageOrdered B y: Renard Burgos on 05-22-2023 Basophils/100 WBC (Bld) 0.4 % 0-1 [facility] Eosinophils/100 WBC (Bld) 0.4 % 0-5 [facility] Hemoglobin (Bld) [Mass/Vol] 13.7 g/dL 13.0-16.5 [facility] Monocytes/100 WBC (Bld) 9.1 % 0-10 [facility] Neutrophils (Bld) [#/Vol] 6.0 10*3/uL 2.0-7.7 [facility] Neutrophils/100 WBC (Bld) 63.9 % 47-70 [facility] WBC (Bld) [#/Vol] 9.4 10*3/uL 4.4-11.0 [facility] Determination of erythrocyte mean corpuscular volume (MCV)Ordered By: Renard Burgos on 05-22-2023 MCV (RBC) [Entitic vol] 91.8 fL 80-94 [facility] Erythrocyte distribution wid th ratioOrdered By: Renard Burgos on 05-22-2023 Erythrocyte distribution width (RBC) [Ratio] 12.8 % 11.6-14.6 [facility] Erythrocyte distribution wid th standard deviationOrdered By: Renard Burgos on 05-22-2023 Erythrocyte distribution width (RBC) [Entitic vol] 43.4 fL 35.1-43.9 [facility] Hematocrit Auto (Bld) [Volum e fraction]Ordered By: Renard Burgos on 05-22-2023 Hematocrit (Bld) [Volume fraction] 41.5 % 40-54 [facility] Immature granulocytes/100 WB C Auto (Bld)Ordered By: Renard Burgos on 05-22-2023 Immature granulocytes/100 WBC (Bld) 0.600 % 0.0-0.9 [facility] Comment on above: IG% - Immature Granu locytes (promyelocytes, myelocytes and metamyelocytes) > 1% indicates that a LEFT SHIFT is Present. Laboratory - Hematology and Cell countsOrdered By: Renard Burgos on 05-22-2023 MCH (RBC) [Entitic mass] 30.3 pg 27.0-32.0 [facility] MCHC (RBC) [Mass/Vol] 33.0 g/dL 32-36 [facility] Nucleated RBC/100 WBC (Bld) [Ratio] 0 % 0-5 [facility] Platelets (Bld) [#/Vol] 192 10*3/uL 150-450 [facility] Platelet mean volume Adam-Ec ker (Bld) [Entitic vol]Ordered By: Renard Burgos on 05-22-2023 Platelet mean volume (Bld) [Entitic vol] 11.3 fL 6.2-12.0 [facility] RBC Auto (Bld) [#/Vol]Ordere d By: Renard Burgos on 05-22-2023 RBC (Bld) [#/Vol] 4.52 10*6/uL 4.6-6.2 [facility] Absolute lymphocyte countOrd ered By: Renard Burgos on 05-15-2023 Lymphocytes Auto (Unsp spec) [#/Vol] 2.11 10*3/uL 0.83-4.51 [facility] Basophil percentageOrdered B y: Renard Burgos on 05-15-2023 Basophils/100 WBC (Bld) 0.6 % 0-1 [facility] Eosinophils/100 WBC (Bld) 0.8 % 0-5 [facility] Neutrophils (Bld) [#/Vol] 4.9 10*3/uL 2.0-7.7 [facility] Neutrophils/100 WBC (Bld) 62.4 % 47-70 [facility] WBC (Bld) [#/Vol] 7.9 10*3/uL 4.4-11.0 [facility] Blood erythrocytes count (nu mber/volume)Ordered By: Renard Burgos on 05-15-2023 RBC (Bld) [#/Vol] 4.61 10*6/uL 4.6-6.2 [facility] Blood hemoglobin measurement (mass/volume)Ordered By: Renard Burgos on 05-15-2023 Hemoglobin (Bld) [Mass/Vol] 13.9 g/dL 13.0-16.5 [facility] Blood lymphocytes/100 leukoc ytesOrdered By: Renard Burgos on 05-15-2023 Lymphocytes/100 WBC (Bld) 26.7 % 19-41 [facility] Blood monocytes/100 leukocyt esOrdered By: Renard Burgos on 05-15-2023 Monocytes/100 WBC (Bld) 9.1 % 0-10 [facility] Blood platelet mean volumeOr dered By: Renard Burgos on 05-15-2023 Platelet mean volume (Bld) [Entitic vol] 10.7 fL 6.2-12.0 [facility] Determination of erythrocyte mean corpuscular volume (MCV)Ordered By: Renard Burgos on 05-15-2023 MCV (RBC) [Entitic vol] 90.5 fL 80-94 [facility] Hematocrit Auto (Bld) [Volum e fraction]Ordered By: Renard Burgos on 05-15-2023 Hematocrit (Bld) [Volume fraction] 41.7 % 40-54 [facility] Laboratory - Hematology and Cell countsOrdered By: Renard Burgos on 05-15-2023 Erythrocyte distribution width (RBC) [Entitic vol] 42.4 fL 35.1-43.9 [facility] Erythrocyte distribution width (RBC) [Ratio] 12.9 % 11.6-14.6 [facility] Immature granulocytes/100 WBC (Bld) 0.400 % 0.0-0.9 [facility] Comment on above: IG% - Immature Granu locytes (promyelocytes, myelocytes and metamyelocytes) > 1% indicates that a LEFT SHIFT is Present. MCH (RBC) [Entitic mass] 30.2 pg 27.0-32.0 [facility] Nucleated RBC/100 WBC (Bld) [Ratio] 0 % 0-5 [facility] MCHC Auto (RBC) [Mass/Vol]Or dered By: Renard Burgos on 05-15-2023 MCHC (RBC) [Mass/Vol] 33.3 g/dL 32-36 [facility] Platelets bldOrdered By: Lyubov Burgos on 05-15-2023 Platelets (Bld) [#/Vol] 202 10*3/uL 150-450 [facility] Absolute lymphocyte countOrd ered By: Renard Burgos on 05-08-2023 Lymphocytes Auto (Unsp spec) [#/Vol] 2.06 10*3/uL 0.83-4.51 [facility] Basophil percentageOrdered B y: Renard Burgos on 05-08-2023 Basophils/100 WBC (Bld) 0.4 % 0-1 [facility] Eosinophils/100 WBC (Bld) 0.5 % 0-5 [facility] Neutrophils (Bld) [#/Vol] 5.0 10*3/uL 2.0-7.7 [facility] Neutrophils/100 WBC (Bld) 65.7 % 47-70 [facility] WBC (Bld) [#/Vol] 7.5 10*3/uL 4.4-11.0 [facility] Blood erythrocytes count (nu mber/volume)Ordered By: Renard Burgos on 05-08-2023 RBC (Bld) [#/Vol] 4.62 10*6/uL 4.6-6.2 [facility] Blood hemoglobin measurement (mass/volume)Ordered By: Renard Burgos on 05-08-2023 Hemoglobin (Bld) [Mass/Vol] 13.6 g/dL 13.0-16.5 [facility] Blood lymphocytes/100 leukoc ytesOrdered By: Renard Burgos on 05-08-2023 Lymphocytes/100 WBC (Bld) 27.4 % 19-41 [facility] Blood monocytes/100 leukocyt esOrdered By: Renard Burgos on 05-08-2023 Monocytes/100 WBC (Bld) 5.6 % 0-10 [facility] Blood platelet mean volumeOr dered By: Renard Burgos on 05-08-2023 Platelet mean volume (Bld) [Entitic vol] 11.0 fL 6.2-12.0 [facility] Determination of erythrocyte mean corpuscular volume (MCV)Ordered By: Renard Burgos on 05-08-2023 MCV (RBC) [Entitic vol] 91.8 fL 80-94 [facility] Hematocrit Auto (Bld) [Volum e fraction]Ordered By: Renard Burgos on 05-08-2023 Hematocrit (Bld) [Volume fraction] 42.4 % 40-54 [facility] Laboratory - Hematology and Cell countsOrdered By: Renard Burgos on 05-08-2023 Erythrocyte distribution width (RBC) [Entitic vol] 43.1 fL 35.1-43.9 [facility] Erythrocyte distribution width (RBC) [Ratio] 13.0 % 11.6-14.6 [facility] Immature granulocytes/100 WBC (Bld) 0.400 % 0.0-0.9 [facility] Comment on above: IG% - Immature Granu locytes (promyelocytes, myelocytes and metamyelocytes) > 1% indicates that a LEFT SHIFT is Present. MCH (RBC) [Entitic mass] 29.4 pg 27.0-32.0 [facility] Nucleated RBC/100 WBC (Bld) [Ratio] 0 % 0-5 [facility] MCHC Auto (RBC) [Mass/Vol]Or dered By: Renard Burgos on 05-08-2023 MCHC (RBC) [Mass/Vol] 32.1 g/dL 32-36 [facility] Platelets bldOrdered By: Lyubov Burgos on 05-08-2023 Platelets (Bld) [#/Vol] 226 10*3/uL 150-450 [facility] Absolute lymphocyte countOrd ered By: Renard Burgos on 04-17-2023 Lymphocytes Auto (Unsp spec) [#/Vol] 0.92 10*3/uL 0.83-4.51 [facility] Basophil percentageOrdered B y: Renard Burgos on 04-17-2023 Basophils/100 WBC (Bld) 0.1 % 0-1 [facility] Eosinophils/100 WBC (Bld) 0.0 % 0-5 [facility] Neutrophils (Bld) [#/Vol] 6.0 10*3/uL 2.0-7.7 [facility] Neutrophils/100 WBC (Bld) 81.4 % 47-70 [facility] WBC (Bld) [#/Vol] 7.4 10*3/uL 4.4-11.0 [facility] Blood erythrocytes count (nu mber/volume)Ordered By: Renard Burgos on 04-17-2023 RBC (Bld) [#/Vol] 4.59 10*6/uL 4.6-6.2 [facility] Blood hemoglobin measurement (mass/volume)Ordered By: Renard Burgos on 04-17-2023 Hemoglobin (Bld) [Mass/Vol] 13.7 g/dL 13.0-16.5 [facility] Blood lymphocytes/100 leukoc ytesOrdered By: Renard Burgos on 04-17-2023 Lymphocytes/100 WBC (Bld) 12.5 % 19-41 [facility] Blood monocytes/100 leukocyt esOrdered By: Renard Burgos on 04-17-2023 Monocytes/100 WBC (Bld) 5.6 % 0-10 [facility] Blood platelet mean volumeOr dered By: Renard Burgos on 04-17-2023 Platelet mean volume (Bld) [Entitic vol] 10.9 fL 6.2-12.0 [facility] Determination of erythrocyte mean corpuscular volume (MCV)Ordered By: Renard Burgos on 04-17-2023 MCV (RBC) [Entitic vol] 90.8 fL 80-94 [facility] Hematocrit Auto (Bld) [Volum e fraction]Ordered By: Renard Burgos on 04-17-2023 Hematocrit (Bld) [Volume fraction] 41.7 % 40-54 [facility] Laboratory - Hematology and Cell countsOrdered By: Renard Burgos on 04-17-2023 Erythrocyte distribution width (RBC) [Entitic vol] 42.3 fL 35.1-43.9 [facility] Erythrocyte distribution width (RBC) [Ratio] 12.8 % 11.6-14.6 [facility] Immature granulocytes/100 WBC (Bld) 0.400 % 0.0-0.9 [facility] Comment on above: IG% - Immature Granu locytes (promyelocytes, myelocytes and metamyelocytes) > 1% indicates that a LEFT SHIFT is Present. MCH (RBC) [Entitic mass] 29.8 pg 27.0-32.0 [facility] Nucleated RBC/100 WBC (Bld) [Ratio] 0 % 0-5 [facility] MCHC Auto (RBC) [Mass/Vol]Or dered By: Renard Burgos on 04-17-2023 MCHC (RBC) [Mass/Vol] 32.9 g/dL 32-36 [facility] Platelets bldOrdered By: Lyubov Burgos on 04-17-2023 Platelets (Bld) [#/Vol] 194 10*3/uL 150-450 [facility] Basophil percentageOrdered B y: Renard Burgos on 04-14-2023 Bilirubin [Mass/Vol] 0.30 mg/dL 0.20-1.00 [facility] [place] Comment on above: For patients on eltr ombopag therapy, use of Dimension [place] TBIL is not recommended. Protein [Mass/Vol] 6.2 g/dL 6.4-8.2 [facility] Direct bilirubinOrdered By: Renard Burgos on 04-14-2023 Bilirubin.direct [Mass/Vol] 0.11 mg/dL 0.00-0.30 [facility] Laboratory - Chemistry and C hemistry - challengeOrdered By: Renard Burgos on 04-14-2023 ALP [Catalytic activity/Vol] 139 U/L 45-117 [facility] ALT [Catalytic activity/Vol] 23 U/L 16-61 [facility] Globulin (S) [Mass/Vol] 3.2 g/dL 2.2-4.2 [facility] Serum or plasma albumin gordy urement (mass/volume)Ordered By: Renard Burgos on 04-14-2023 Albumin [Mass/Vol] 3.0 g/dL 3.2-5.0 [facility] Thin prep Papanicolaou smear with manual screeningOrdered By: Renard Burgos on 04-14-2023 Thin prep Papanicolaou smear with manual screening 14 U/L 15-37 [facility] Absolute lymphocyte countOrd ered By: Renard Burgos on 04-10-2023 Lymphocytes Auto (Unsp spec) [#/Vol] 2.54 10*3/uL 0.83-4.51 [facility] Basophil percentageOrdered B y: Renard Burgos on 04-10-2023 Basophils/100 WBC (Bld) 0.5 % 0-1 [facility] Eosinophils/100 WBC (Bld) 0.5 % 0-5 [facility] Neutrophils (Bld) [#/Vol] 5.1 10*3/uL 2.0-7.7 [facility] Neutrophils/100 WBC (Bld) 59.0 % 47-70 [facility] WBC (Bld) [#/Vol] 8.7 10*3/uL 4.4-11.0 [facility] Blood erythrocytes count (nu mber/volume)Ordered By: Renard Burgos on 04-10-2023 RBC (Bld) [#/Vol] 4.84 10*6/uL 4.6-6.2 [facility] Blood hemoglobin measurement (mass/volume)Ordered By: Renard Burgos on 04-10-2023 Hemoglobin (Bld) [Mass/Vol] 14.2 g/dL 13.0-16.5 [facility] Blood lymphocytes/100 leukoc ytesOrdered By: Renard Burgos on 04-10-2023 Lymphocytes/100 WBC (Bld) 29.4 % 19-41 [facility] Blood monocytes/100 leukocyt esOrdered By: Renard Burgos on 04-10-2023 Monocytes/100 WBC (Bld) 10.3 % 0-10 [facility] Blood platelet mean volumeOr dered By: Renard Burgos on 04-10-2023 Platelet mean volume (Bld) [Entitic vol] 11.1 fL 6.2-12.0 [facility] Determination of erythrocyte mean corpuscular volume (MCV)Ordered By: Renard Burgos on 04-10-2023 MCV (RBC) [Entitic vol] 91.5 fL 80-94 [facility] Hematocrit Auto (Bld) [Volum e fraction]Ordered By: Renard Burgos on 04-10-2023 Hematocrit (Bld) [Volume fraction] 44.3 % 40-54 [facility] Laboratory - Hematology and Cell countsOrdered By: Renard Burgos on 04-10-2023 Erythrocyte distribution width (RBC) [Entitic vol] 41.9 fL 35.1-43.9 [facility] Erythrocyte distribution width (RBC) [Ratio] 12.6 % 11.6-14.6 [facility] Immature granulocytes/100 WBC (Bld) 0.300 % 0.0-0.9 [facility] Comment on above: IG% - Immature Granu locytes (promyelocytes, myelocytes and metamyelocytes) > 1% indicates that a LEFT SHIFT is Present. MCH (RBC) [Entitic mass] 29.3 pg 27.0-32.0 [facility] Nucleated RBC/100 WBC (Bld) [Ratio] 0 % 0-5 [facility] MCHC Auto (RBC) [Mass/Vol]Or dered By: Renard Burgos on 04-10-2023 MCHC (RBC) [Mass/Vol] 32.1 g/dL 32-36 [facility] Platelets bldOrdered By: Lyubov Burgos on 04-10-2023 Platelets (Bld) [#/Vol] 216 10*3/uL 150-450 [facility] Absolute lymphocyte countOrd ered By: Renard Burgos on 04-03-2023 Lymphocytes Auto (Unsp spec) [#/Vol] 1.91 10*3/uL 0.83-4.51 [facility] Basophil percentageOrdered B y: Renard Burgos on 04-03-2023 Basophils/100 WBC (Bld) 0.5 % 0-1 [facility] Eosinophils/100 WBC (Bld) 0.5 % 0-5 [facility] Neutrophils (Bld) [#/Vol] 5.0 10*3/uL 2.0-7.7 [facility] Neutrophils/100 WBC (Bld) 66.5 % 47-70 [facility] WBC (Bld) [#/Vol] 7.6 10*3/uL 4.4-11.0 [facility] Blood erythrocytes count (nu mber/volume)Ordered By: Renard Burgos on 04-03-2023 RBC (Bld) [#/Vol] 4.62 10*6/uL 4.6-6.2 [facility] Blood hemoglobin measurement (mass/volume)Ordered By: Renard Burgos on 04-03-2023 Hemoglobin (Bld) [Mass/Vol] 13.7 g/dL 13.0-16.5 [facility] Blood lymphocytes/100 leukoc ytesOrdered By: Renard Burgos on 04-03-2023 Lymphocytes/100 WBC (Bld) 25.2 % 19-41 [facility] Blood monocytes/100 leukocyt esOrdered By: Renard Burgos on 04-03-2023 Monocytes/100 WBC (Bld) 6.9 % 0-10 [facility] Blood platelet mean volumeOr dered By: Renard Burgos on 04-03-2023 Platelet mean volume (Bld) [Entitic vol] 10.8 fL 6.2-12.0 [facility] Determination of erythrocyte mean corpuscular volume (MCV)Ordered By: Renard Burgos on 04-03-2023 MCV (RBC) [Entitic vol] 91.6 fL 80-94 [facility] Hematocrit Auto (Bld) [Volum e fraction]Ordered By: Renard Burgos on 04-03-2023 Hematocrit (Bld) [Volume fraction] 42.3 % 40-54 [facility] Laboratory - Hematology and Cell countsOrdered By: Renard Burgos on 04-03-2023 Erythrocyte distribution width (RBC) [Entitic vol] 42.6 fL 35.1-43.9 [facility] Erythrocyte distribution width (RBC) [Ratio] 12.8 % 11.6-14.6 [facility] Immature granulocytes/100 WBC (Bld) 0.400 % 0.0-0.9 [facility] Comment on above: IG% - Immature Granu locytes (promyelocytes, myelocytes and metamyelocytes) > 1% indicates that a LEFT SHIFT is Present. MCH (RBC) [Entitic mass] 29.7 pg 27.0-32.0 [facility] Nucleated RBC/100 WBC (Bld) [Ratio] 0 % 0-5 [facility] MCHC Auto (RBC) [Mass/Vol]Or dered By: Renard Burgos on 04-03-2023 MCHC (RBC) [Mass/Vol] 32.4 g/dL 32-36 [facility] Platelets bldOrdered By: Lyubov Burgos on 04-03-2023 Platelets (Bld) [#/Vol] 216 10*3/uL 150-450 [facility] Absolute lymphocyte countOrd ered By: Renard Burgos on 03-27-2023 Lymphocytes Auto (Unsp spec) [#/Vol] 2.06 10*3/uL 0.83-4.51 [facility] Basophil percentageOrdered B y: Renard Burgos on 03-27-2023 Basophils/100 WBC (Bld) 0.4 % 0-1 [facility] Eosinophils/100 WBC (Bld) 0.2 % 0-5 [facility] Neutrophils (Bld) [#/Vol] 6.3 10*3/uL 2.0-7.7 [facility] Neutrophils/100 WBC (Bld) 68.8 % 47-70 [facility] WBC (Bld) [#/Vol] 9.1 10*3/uL 4.4-11.0 [facility] Blood erythrocytes count (nu mber/volume)Ordered By: Renard Burgos on 03-27-2023 RBC (Bld) [#/Vol] 4.51 10*6/uL 4.6-6.2 [facility] Blood hemoglobin measurement (mass/volume)Ordered By: Renard Burgos on 03-27-2023 Hemoglobin (Bld) [Mass/Vol] 13.2 g/dL 13.0-16.5 [facility] Blood lymphocytes/100 leukoc ytesOrdered By: Renard Burgos on 03-27-2023 Lymphocytes/100 WBC (Bld) 22.6 % 19-41 [facility] Blood monocytes/100 leukocyt esOrdered By: Renard Burgos on 03-27-2023 Monocytes/100 WBC (Bld) 7.3 % 0-10 [facility] Blood platelet mean volumeOr dered By: Renard Burgos on 03-27-2023 Platelet mean volume (Bld) [Entitic vol] 10.8 fL 6.2-12.0 [facility] Determination of erythrocyte mean corpuscular volume (MCV)Ordered By: Renard Burgos on 03-27-2023 MCV (RBC) [Entitic vol] 91.6 fL 80-94 [facility] Hematocrit Auto (Bld) [Volum e fraction]Ordered By: Renard Burgos on 03-27-2023 Hematocrit (Bld) [Volume fraction] 41.3 % 40-54 [facility] Laboratory - Hematology and Cell countsOrdered By: Renard Burgos on 03-27-2023 Erythrocyte distribution width (RBC) [Entitic vol] 42.9 fL 35.1-43.9 [facility] Erythrocyte distribution width (RBC) [Ratio] 12.9 % 11.6-14.6 [facility] Immature granulocytes/100 WBC (Bld) 0.700 % 0.0-0.9 [facility] Comment on above: IG% - Immature Granu locytes (promyelocytes, myelocytes and metamyelocytes) > 1% indicates that a LEFT SHIFT is Present. MCH (RBC) [Entitic mass] 29.3 pg 27.0-32.0 [facility] Nucleated RBC/100 WBC (Bld) [Ratio] 0 % 0-5 [facility] MCHC Auto (RBC) [Mass/Vol]Or dered By: Renard Burgos on 03-27-2023 MCHC (RBC) [Mass/Vol] 32.0 g/dL 32-36 [facility] Platelets bldOrdered By: Lyubov Burgos on 03-27-2023 Platelets (Bld) [#/Vol] 205 10*3/uL 150-450 [facility] Absolute lymphocyte countOrd ered By: Renard Burgos on 03-20-2023 Lymphocytes Auto (Unsp spec) [#/Vol] 1.89 10*3/uL 0.83-4.51 [facility] Basophil percentageOrdered B y: eRnard Burgos on 03-20-2023 Basophils/100 WBC (Bld) 0.5 % 0-1 [facility] Chloride [Moles/Vol] 107 mmol/L 98-107 [facility] Eosinophils/100 WBC (Bld) 0.4 % 0-5 [facility] Glucose [Mass/Vol] 124 mg/dL 74-106 [facility] Comment on above: Fasting Glucose resu lt from 100 to 125 mg/dL suggests IMPAIRED HOMEOSTASIS per A.D.A. criteria. Neutrophils (Bld) [#/Vol] 4.8 10*3/uL 2.0-7.7 [facility] Neutrophils/100 WBC (Bld) 64.9 % 47-70 [facility] Potassium [Moles/Vol] 3.6 mmol/L 3.5-5.1 [facility] Sodium [Moles/Vol] 142 mmol/L 136-145 [facility] WBC (Bld) [#/Vol] 7.4 10*3/uL 4.4-11.0 [facility] Blood erythrocytes count (nu mber/volume)Ordered By: Renard Burgos on 03-20-2023 RBC (Bld) [#/Vol] 4.63 10*6/uL 4.6-6.2 [facility] Blood hemoglobin measurement (mass/volume)Ordered By: Renard Burgos on 03-20-2023 Hemoglobin (Bld) [Mass/Vol] 13.7 g/dL 13.0-16.5 [facility] Blood lymphocytes/100 leukoc ytesOrdered By: Renard Burgos on 03-20-2023 Lymphocytes/100 WBC (Bld) 25.7 % 19-41 [facility] Blood monocytes/100 leukocyt esOrdered By: Renard Burgos on 03-20-2023 Monocytes/100 WBC (Bld) 8.2 % 0-10 [facility] Blood platelet mean volumeOr dered By: Renard Burgos on 03-20-2023 Platelet mean volume (Bld) [Entitic vol] 10.7 fL 6.2-12.0 [facility] Determination of erythrocyte mean corpuscular volume (MCV)Ordered By: Renard Burgos on 03-20-2023 MCV (RBC) [Entitic vol] 90.9 fL 80-94 [facility] Hematocrit Auto (Bld) [Volum e fraction]Ordered By: Renard Burgos on 03-20-2023 Hematocrit (Bld) [Volume fraction] 42.1 % 40-54 [facility] Laboratory - Chemistry and C hemistry - challengeOrdered By: Renard Burgos on 03-20-2023 CO2 [Moles/Vol] 29.0 mmol/L 21.0-32.0 [facility] Urea nitrogen/Creatinine [Mass ratio] 30.7 mg/mg 02-17 [facility] Laboratory - Hematology and Cell countsOrdered By: Renard Burgos on 03-20-2023 Erythrocyte distribution width (RBC) [Entitic vol] 43.0 fL 35.1-43.9 [facility] Erythrocyte distribution width (RBC) [Ratio] 12.9 % 11.6-14.6 [facility] Immature granulocytes/100 WBC (Bld) 0.300 % 0.0-0.9 [facility] Comment on above: IG% - Immature Granu locytes (promyelocytes, myelocytes and metamyelocytes) > 1% indicates that a LEFT SHIFT is Present. MCH (RBC) [Entitic mass] 29.6 pg 27.0-32.0 [facility] Nucleated RBC/100 WBC (Bld) [Ratio] 0 % 0-5 [facility] MCHC Auto (RBC) [Mass/Vol]Or dered By: Renard Burgos on 03-20-2023 MCHC (RBC) [Mass/Vol] 32.5 g/dL 32-36 [facility] No Panel InformationOrdered By: Renard Burgos on 03-20-2023 Estimated GFR (MDRD) Amer 178 mL/min >60 [facility] Comment on above: GFR Calc Estimated GFR (MDRD) Non-Af Amer 147 mL/min >60 [facility] Comment on above: Non- GFR Calc Platelets bldOrdered By: Lyubov Burgos on 03-20-2023 Platelets (Bld) [#/Vol] 208 10*3/uL 150-450 [facility] Serum or plasma calcium gordy urement (mass/volume)Ordered By: Renard Burgos on 03-20-2023 Calcium [Mass/Vol] 8.1 mg/dL 8.5-10.1 [facility] Serum or plasma creatinine m easurement (mass/volume)Ordered By: Renard Burgos on 03-20-2023 Creatinine [Mass/Vol] 0.59 mg/dL 0.70-1.30 [facility] Comment on above: The validity of the calculated GFR & GFRAA in patients over 70 years has not been determined. Clinical correlation is essential. Serum or plasma urea nitroge n measurement (mass/volume)Ordered By: Renard Burgos on 03-20-2023 Urea nitrogen [Mass/Vol] 18 mg/dL 7-18 [facility] Thin prep Papanicolaou smear with manual screeningOrdered By: Renard Burgos on 03-20-2023 Thin prep Papanicolaou smear with manual screening 6 5-15 [facility] Erythrocyte sedimentation ra teOrdered By: Renard Burgos on 03-16-2023 ESR (Bld) [Velocity] 3 mm/h 0-20 [facility] Absolute lymphocyte countOrd ered By: Renard Burgos on 03-13-2023 Lymphocytes Auto (Unsp spec) [#/Vol] 2.36 10*3/uL 0.83-4.51 [facility] Basophil percentageOrdered B y: Renard Burgos on 03-13-2023 Basophils/100 WBC (Bld) 0.5 % 0-1 [facility] Eosinophils/100 WBC (Bld) 0.5 % 0-5 [facility] Neutrophils (Bld) [#/Vol] 5.2 10*3/uL 2.0-7.7 [facility] Neutrophils/100 WBC (Bld) 61.3 % 47-70 [facility] WBC (Bld) [#/Vol] 8.5 10*3/uL 4.4-11.0 [facility] Blood erythrocytes count (nu mber/volume)Ordered By: Renard Burgos on 03-13-2023 RBC (Bld) [#/Vol] 4.55 10*6/uL 4.6-6.2 [facility] Blood hemoglobin measurement (mass/volume)Ordered By: Renard Burgos on 03-13-2023 Hemoglobin (Bld) [Mass/Vol] 13.4 g/dL 13.0-16.5 [facility] Blood lymphocytes/100 leukoc ytesOrdered By: Renard Burgos on 03-13-2023 Lymphocytes/100 WBC (Bld) 27.7 % 19-41 [facility] Blood monocytes/100 leukocyt esOrdered By: Renard Burgos on 03-13-2023 Monocytes/100 WBC (Bld) 9.5 % 0-10 [facility] Blood platelet mean volumeOr dered By: Renard Burgos on 03-13-2023 Platelet mean volume (Bld) [Entitic vol] 10.6 fL 6.2-12.0 [facility] Determination of erythrocyte mean corpuscular volume (MCV)Ordered By: Renard Burgos on 03-13-2023 MCV (RBC) [Entitic vol] 93.4 fL 80-94 [facility] Hematocrit Auto (Bld) [Volum e fraction]Ordered By: Renard Burgos on 03-13-2023 Hematocrit (Bld) [Volume fraction] 42.5 % 40-54 [facility] Laboratory - Hematology and Cell countsOrdered By: Renard Burgos on 03-13-2023 Erythrocyte distribution width (RBC) [Entitic vol] 44.1 fL 35.1-43.9 [facility] Erythrocyte distribution width (RBC) [Ratio] 13.0 % 11.6-14.6 [facility] Immature granulocytes/100 WBC (Bld) 0.500 % 0.0-0.9 [facility] Comment on above: IG% - Immature Granu locytes (promyelocytes, myelocytes and metamyelocytes) > 1% indicates that a LEFT SHIFT is Present. MCH (RBC) [Entitic mass] 29.5 pg 27.0-32.0 [facility] Nucleated RBC/100 WBC (Bld) [Ratio] 0 % 0-5 [facility] MCHC Auto (RBC) [Mass/Vol]Or dered By: Renard Burgos on 03-13-2023 MCHC (RBC) [Mass/Vol] 31.5 g/dL 32-36 [facility] Platelets bldOrdered By: Lyubov Burgos on 03-13-2023 Platelets (Bld) [#/Vol] 200 10*3/uL 150-450 [facility] Absolute lymphocyte countOrd ered By: Renard Burgos on 03-06-2023 Lymphocytes Auto (Unsp spec) [#/Vol] 1.80 10*3/uL 0.83-4.51 [facility] Basophil percentageOrdered B y: Renard Burgos on 03-06-2023 Basophils/100 WBC (Bld) 0.5 % 0-1 [facility] Bilirubin [Mass/Vol] 0.40 mg/dL 0.20-1.00 [facility] Comment on above: For patients on eltr ombopag therapy, use of Dimension [place] TBIL is not recommended. Chloride [Moles/Vol] 107 mmol/L 98-107 [facility] Cholesterol [Mass/Vol] 118 mg/dL <200 [facility] Comment on above: <200 mg/dL Desirable 200-240 mg/dL Borderline >240 mg/dL High Risk Eosinophils/100 WBC (Bld) 0.5 % 0-5 [facility] Glucose [Mass/Vol] 107 mg/dL 74-106 [facility] Comment on above: Fasting Glucose resu lt from 100 to 125 mg/dL suggests IMPAIRED HOMEOSTASIS per A.D.A. criteria. Neutrophils (Bld) [#/Vol] 5.5 10*3/uL 2.0-7.7 [facility] Neutrophils/100 WBC (Bld) 68.0 % 47-70 [facility] Potassium [Moles/Vol] 3.8 mmol/L 3.5-5.1 [facility] Protein [Mass/Vol] 6.3 g/dL 6.4-8.2 [facility] Sodium [Moles/Vol] 141 mmol/L 136-145 [facility] Triglyceride [Mass/Vol] 185 mg/dL <199 [facility] Comment on above: The drugs N-Acetylcy steine and Metamizole may falsely depress this assay.Serum Triglycerides Reference Interval Normal <150 mg/dL Borderline high 150 - 199 mg/dL High 200 - 499 mg/dL Very High > or = 500 mg/dL WBC (Bld) [#/Vol] 8.1 10*3/uL 4.4-11.0 [facility] Blood erythrocytes count (nu mber/volume)Ordered By: Renard Burgos on 03-06-2023 RBC (Bld) [#/Vol] 4.69 10*6/uL 4.6-6.2 [facility] Blood hemoglobin measurement (mass/volume)Ordered By: Renard Burgos on 03-06-2023 Hemoglobin (Bld) [Mass/Vol] 14.0 g/dL 13.0-16.5 [facility] Blood lymphocytes/100 leukoc ytesOrdered By: Renard Burgos on 03-06-2023 Lymphocytes/100 WBC (Bld) 22.3 % 19-41 [facility] Blood monocytes/100 leukocyt esOrdered By: Renard Burgos on 03-06-2023 Monocytes/100 WBC (Bld) 8.2 % 0-10 [facility] Blood platelet mean volumeOr dered By: Renard Burgos on 03-06-2023 Platelet mean volume (Bld) [Entitic vol] 10.9 fL 6.2-12.0 [facility] Determination of erythrocyte mean corpuscular volume (MCV)Ordered By: Renard Burgos on 03-06-2023 MCV (RBC) [Entitic vol] 91.9 fL 80-94 [facility] Hematocrit Auto (Bld) [Volum e fraction]Ordered By: Renard Burgos on 03-06-2023 Hematocrit (Bld) [Volume fraction] 43.1 % 40-54 [facility] Laboratory - Chemistry and C hemistry - challengeOrdered By: Renard Burgos on 03-06-2023 ALP [Catalytic activity/Vol] 120 U/L 45-117 [facility] ALT [Catalytic activity/Vol] 20 U/L 16-61 [facility] CO2 [Moles/Vol] 30.0 mmol/L 21.0-32.0 [facility] Globulin (S) [Mass/Vol] 3.3 g/dL 2.2-4.2 [facility] Urea nitrogen/Creatinine [Mass ratio] 27.1 mg/mg 10-20 [facility] Laboratory - Hematology and Cell countsOrdered By: Renard Burgos on 03-06-2023 Erythrocyte distribution width (RBC) [Entitic vol] 42.5 fL 35.1-43.9 [facility] Erythrocyte distribution width (RBC) [Ratio] 12.9 % 11.6-14.6 [facility] Immature granulocytes/100 WBC (Bld) 0.500 % 0.0-0.9 [facility] Comment on above: IG% - Immature Granu locytes (promyelocytes, myelocytes and metamyelocytes) > 1% indicates that a LEFT SHIFT is Present. MCH (RBC) [Entitic mass] 29.9 pg 27.0-32.0 [facility] Nucleated RBC/100 WBC (Bld) [Ratio] 0 % 0-5 [facility] MCHC Auto (RBC) [Mass/Vol]Or dered By: Renard Burgos on 03-06-2023 MCHC (RBC) [Mass/Vol] 32.5 g/dL 32-36 [facility] No Panel InformationOrdered By: Renard Burgos on 03-06-2023 Estimated GFR (MDRD) Amer 165 mL/min >60 [facility] Comment on above: GFR Calc Estimated GFR (MDRD) Non-Af Amer 136 mL/min >60 [facility] Comment on above: Non- GFR Calc Platelets bldOrdered By: Lyubov Burgos on 03-06-2023 Platelets (Bld) [#/Vol] 232 10*3/uL 150-450 [facility] Serum or plasma albumin godry urement (mass/volume)Ordered By: Renard Burgos on 03-06-2023 Albumin [Mass/Vol] 3.0 g/dL 3.2-5.0 [facility] Serum or plasma albumin/glob ulin mass ratioOrdered By: Renard Burgos on 03-06-2023 Albumin/Globulin [Mass ratio] 0.9 {ratio} 0.9-2.4 [facility] Serum or plasma calcium gordy urement (mass/volume)Ordered By: Renard Burgos on 03-06-2023 Calcium [Mass/Vol] 8.2 mg/dL 8.5-10.1 [facility] Serum or plasma cholesterol in HDL measurement (mass/volume)Ordered By: Renard Burgos on 03-06-2023 Cholesterol in HDL [Mass/Vol] 25 mg/dL >40 [facility] Comment on above: The drugs N-Acetylcy steine and Metamizole may falsely depress this assay. Reference Range HDL <40 mg/dL Low HDL Cholesterol HDL >or= 60 mg/dL High HDL Cholesterol Serum or plasma cholesterol in VLDL measurement (mass/volume)Ordered By: Renard Burgos on 03-06-2023 Cholesterol in VLDL [Mass/Vol] 37 mg/dL 5-40 [facility] Serum or plasma creatinine m easurement (mass/volume)Ordered By: Renard Burgos on 03-06-2023 Creatinine [Mass/Vol] 0.63 mg/dL 0.70-1.30 [facility] Comment on above: The validity of the calculated GFR & GFRAA in patients over 70 years has not been determined. Clinical correlation is essential. Serum or plasma low density lipoprotein (LDL) cholesterol measurement (mass/volume)Ordered By: Renard Burgos on 03-06-2023 Cholesterol in LDL [Mass/Vol] 56 mg/dL 0-130 [facility] Serum or plasma urea nitroge n measurement (mass/volume)Ordered By: Renard Burgos on 03-06-2023 Urea nitrogen [Mass/Vol] 17 mg/dL 7-18 [facility] Thin prep Papanicolaou smear with manual screeningOrdered By: Renard Burgos on 03-06-2023 Thin prep Papanicolaou smear with manual screening 10 U/L 15-37 [facility] Thin prep Papanicolaou smear with manual screening 4 5-15 [facility] Absolute lymphocyte countOrd ered By: Renard Burgos on 02-27-2023 Lymphocytes Auto (Unsp spec) [#/Vol] 2.13 10*3/uL 0.83-4.51 [facility] Basophil percentageOrdered B y: Renard Burgos on 02-27-2023 Basophils/100 WBC (Bld) 0.6 % 0-1 [facility] Eosinophils/100 WBC (Bld) 0.6 % 0-5 [facility] Neutrophils (Bld) [#/Vol] 5.1 10*3/uL 2.0-7.7 [facility] Neutrophils/100 WBC (Bld) 63.3 % 47-70 [facility] WBC (Bld) [#/Vol] 8.1 10*3/uL 4.4-11.0 [facility] Blood erythrocytes count (nu mber/volume)Ordered By: Renard Burgos on 02-27-2023 RBC (Bld) [#/Vol] 4.54 10*6/uL 4.6-6.2 [facility] Blood hemoglobin measurement (mass/volume)Ordered By: Renard Burgos on 02-27-2023 Hemoglobin (Bld) [Mass/Vol] 13.7 g/dL 13.0-16.5 [facility] Blood lymphocytes/100 leukoc ytesOrdered By: Renard Burgos on 02-27-2023 Lymphocytes/100 WBC (Bld) 26.4 % 19-41 [facility] Blood monocytes/100 leukocyt esOrdered By: Renard Burgos on 02-27-2023 Monocytes/100 WBC (Bld) 8.7 % 0-10 [facility] Blood platelet mean volumeOr dered By: Renard Burgos on 02-27-2023 Platelet mean volume (Bld) [Entitic vol] 10.8 fL 6.2-12.0 [facility] Determination of erythrocyte mean corpuscular volume (MCV)Ordered By: Renard Burgos on 02-27-2023 MCV (RBC) [Entitic vol] 89.9 fL 80-94 [facility] Hematocrit Auto (Bld) [Volum e fraction]Ordered By: Renard Burgos on 02-27-2023 Hematocrit (Bld) [Volume fraction] 40.8 % 40-54 [facility] Laboratory - Hematology and Cell countsOrdered By: Renard Burgos on 02-27-2023 Erythrocyte distribution width (RBC) [Entitic vol] 41.0 fL 35.1-43.9 [facility] Erythrocyte distribution width (RBC) [Ratio] 12.5 % 11.6-14.6 [facility] Immature granulocytes/100 WBC (Bld) 0.400 % 0.0-0.9 [facility] Comment on above: IG% - Immature Granu locytes (promyelocytes, myelocytes and metamyelocytes) > 1% indicates that a LEFT SHIFT is Present. MCH (RBC) [Entitic mass] 30.2 pg 27.0-32.0 [facility] Nucleated RBC/100 WBC (Bld) [Ratio] 0 % 0-5 [facility] MCHC Auto (RBC) [Mass/Vol]Or dered By: Renard Burgos on 02-27-2023 MCHC (RBC) [Mass/Vol] 33.6 g/dL 32-36 [facility] Platelets bldOrdered By: Lyubov Burgos on 02-27-2023 Platelets (Bld) [#/Vol] 182 10*3/uL 150-450 [facility] Absolute lymphocyte countOrd ered By: Renard Burgos on 02-20-2023 Lymphocytes Auto (Unsp spec) [#/Vol] 2.23 10*3/uL 0.83-4.51 [facility] Basophil percentageOrdered B y: Renard Burgos on 02-20-2023 Basophils/100 WBC (Bld) 0.3 % 0-1 [facility] Eosinophils/100 WBC (Bld) 0.7 % 0-5 [facility] Neutrophils (Bld) [#/Vol] 5.9 10*3/uL 2.0-7.7 [facility] Neutrophils/100 WBC (Bld) 65.7 % 47-70 [facility] WBC (Bld) [#/Vol] 9.0 10*3/uL 4.4-11.0 [facility] Blood erythrocytes count (nu mber/volume)Ordered By: Renard Burgos on 02-20-2023 RBC (Bld) [#/Vol] 4.46 10*6/uL 4.6-6.2 [facility] Blood hemoglobin measurement (mass/volume)Ordered By: Renard Burgos on 02-20-2023 Hemoglobin (Bld) [Mass/Vol] 13.3 g/dL 13.0-16.5 [facility] Blood lymphocytes/100 leukoc ytesOrdered By: Renard Burgos on 02-20-2023 Lymphocytes/100 WBC (Bld) 24.7 % 19-41 [facility] Blood monocytes/100 leukocyt esOrdered By: Renard Burgos on 02-20-2023 Monocytes/100 WBC (Bld) 8.0 % 0-10 [facility] Blood platelet mean volumeOr dered By: Renard Burgos on 02-20-2023 Platelet mean volume (Bld) [Entitic vol] 10.7 fL 6.2-12.0 [facility] Determination of erythrocyte mean corpuscular volume (MCV)Ordered By: Renard Burgos on 02-20-2023 MCV (RBC) [Entitic vol] 90.6 fL 80-94 [facility] Hematocrit Auto (Bld) [Volum e fraction]Ordered By: Renard Burgos on 02-20-2023 Hematocrit (Bld) [Volume fraction] 40.4 % 40-54 [facility] Laboratory - Hematology and Cell countsOrdered By: Renard Burgos on 02-20-2023 Erythrocyte distribution width (RBC) [Entitic vol] 41.9 fL 35.1-43.9 [facility] Erythrocyte distribution width (RBC) [Ratio] 12.8 % 11.6-14.6 [facility] Immature granulocytes/100 WBC (Bld) 0.600 % 0.0-0.9 [facility] Comment on above: IG% - Immature Granu locytes (promyelocytes, myelocytes and metamyelocytes) > 1% indicates that a LEFT SHIFT is Present. MCH (RBC) [Entitic mass] 29.8 pg 27.0-32.0 [facility] Nucleated RBC/100 WBC (Bld) [Ratio] 0 % 0-5 [facility] MCHC Auto (RBC) [Mass/Vol]Or dered By: Renard Burgos on 02-20-2023 MCHC (RBC) [Mass/Vol] 32.9 g/dL 32-36 [facility] Platelets bldOrdered By: Lyubov Burgos on 02-20-2023 Platelets (Bld) [#/Vol] 220 10*3/uL 150-450 [facility] Absolute lymphocyte countOrd ered By: Renard Burgos on 02-13-2023 Lymphocytes Auto (Unsp spec) [#/Vol] 2.01 10*3/uL 0.83-4.51 [facility] Basophil percentageOrdered B y: Renrad Burgos on 02-13-2023 Basophils/100 WBC (Bld) 0.7 % 0-1 [facility] Eosinophils/100 WBC (Bld) 0.5 % 0-5 [facility] Neutrophils (Bld) [#/Vol] 4.7 10*3/uL 2.0-7.7 [facility] Neutrophils/100 WBC (Bld) 63.3 % 47-70 [facility] WBC (Bld) [#/Vol] 7.4 10*3/uL 4.4-11.0 [facility] Blood erythrocytes count (nu mber/volume)Ordered By: Renard Burgos on 02-13-2023 RBC (Bld) [#/Vol] 4.46 10*6/uL 4.6-6.2 [facility] Blood hemoglobin measurement (mass/volume)Ordered By: Renard Burgos on 02-13-2023 Hemoglobin (Bld) [Mass/Vol] 13.6 g/dL 13.0-16.5 [facility] Blood lymphocytes/100 leukoc ytesOrdered By: Renard Burgos on 02-13-2023 Lymphocytes/100 WBC (Bld) 27.0 % 19-41 [facility] Blood monocytes/100 leukocyt esOrdered By: Renard Burgos on 02-13-2023 Monocytes/100 WBC (Bld) 8.1 % 0-10 [facility] Blood platelet mean volumeOr dered By: Renard Burgos on 02-13-2023 Platelet mean volume (Bld) [Entitic vol] 10.7 fL 6.2-12.0 [facility] Determination of erythrocyte mean corpuscular volume (MCV)Ordered By: Renard Burgos on 02-13-2023 MCV (RBC) [Entitic vol] 92.6 fL 80-94 [facility] Hematocrit Auto (Bld) [Volum e fraction]Ordered By: Renard Burgos on 02-13-2023 Hematocrit (Bld) [Volume fraction] 41.3 % 40-54 [facility] Laboratory - Hematology and Cell countsOrdered By: Renard Burgos on 02-13-2023 Erythrocyte distribution width (RBC) [Entitic vol] 42.7 fL 35.1-43.9 [facility] Erythrocyte distribution width (RBC) [Ratio] 12.6 % 11.6-14.6 [facility] Immature granulocytes/100 WBC (Bld) 0.400 % 0.0-0.9 [facility] Comment on above: IG% - Immature Granu locytes (promyelocytes, myelocytes and metamyelocytes) > 1% indicates that a LEFT SHIFT is Present. MCH (RBC) [Entitic mass] 30.5 pg 27.0-32.0 [facility] Nucleated RBC/100 WBC (Bld) [Ratio] 0 % 0-5 [facility] MCHC Auto (RBC) [Mass/Vol]Or dered By: Renard Burgos on 02-13-2023 MCHC (RBC) [Mass/Vol] 32.9 g/dL 32-36 [facility] Platelets bldOrdered By: Pet lizy Burgos on 02-13-2023 Platelets (Bld) [#/Vol] 187 10*3/uL 150-450 [facility] Absolute lymphocyte countOrd ered By: Renard Burgos on 02-06-2023 Lymphocytes Auto (Unsp spec) [#/Vol] 2.28 10*3/uL 0.83-4.51 [facility] Basophil percentageOrdered B y: Renard Burgos on 02-06-2023 Basophils/100 WBC (Bld) 0.5 % 0-1 [facility] [facility] Eosinophils/100 WBC (Bld) 0.7 % 0-5 [facility] Neutrophils (Bld) [#/Vol] 5.5 10*3/uL 2.0-7.7 [facility] Neutrophils/100 WBC (Bld) 63.7 % 47-70 [facility] WBC (Bld) [#/Vol] 8.6 10*3/uL 4.4-11.0 [facility] Blood erythrocytes count (nu mber/volume)Ordered By: Renard Burgos on 02-06-2023 RBC (Bld) [#/Vol] 4.71 10*6/uL 4.6-6.2 [facility] Blood hemoglobin measurement (mass/volume)Ordered By: Renard Burgos on 02-06-2023 Hemoglobin (Bld) [Mass/Vol] 14.1 g/dL 13.0-16.5 [facility] Blood lymphocytes/100 leukoc ytesOrdered By: Renard Burgos on 02-06-2023 Lymphocytes/100 WBC (Bld) 26.4 % 19-41 [facility] Blood monocytes/100 leukocyt esOrdered By: Renard Burgos on 02-06-2023 Monocytes/100 WBC (Bld) 8.2 % 0-10 [facility] Blood platelet mean volumeOr dered By: Renard Burgos on 02-06-2023 Platelet mean volume (Bld) [Entitic vol] 11.0 fL 6.2-12.0 [facility] Determination of erythrocyte mean corpuscular volume (MCV)Ordered By: Renard Burgos on 02-06-2023 MCV (RBC) [Entitic vol] 94.5 fL 80-94 [facility] Hematocrit Auto (Bld) [Volum e fraction]Ordered By: Renard Burgos on 02-06-2023 Hematocrit (Bld) [Volume fraction] 44.5 % 40-54 [facility] Laboratory - Hematology and Cell countsOrdered By: Renard Burgos on 02-06-2023 Erythrocyte distribution width (RBC) [Entitic vol] 43.5 fL 35.1-43.9 [facility] Erythrocyte distribution width (RBC) [Ratio] 12.7 % 11.6-14.6 [facility] Immature granulocytes/100 WBC (Bld) 0.500 % 0.0-0.9 [facility] Comment on above: IG% - Immature Granu locytes (promyelocytes, myelocytes and metamyelocytes) > 1% indicates that a LEFT SHIFT is Present. MCH (RBC) [Entitic mass] 29.9 pg 27.0-32.0 [facility] Nucleated RBC/100 WBC (Bld) [Ratio] 0 % 0-5 [facility] MCHC Auto (RBC) [Mass/Vol]Or dered By: Renard Burgos on 02-06-2023 MCHC (RBC) [Mass/Vol] 31.7 g/dL 32-36 [facility] Platelets bldOrdered By: Lyubov Burgos on 02-06-2023 Platelets (Bld) [#/Vol] 196 10*3/uL 150-450 [facility] Absolute lymphocyte countOrd ered By: Renard Burgos on 01-30-2023 Lymphocytes Auto (Unsp spec) [#/Vol] 1.91 10*3/uL 0.83-4.51 [facility] Basophil percentageOrdered B y: Renard Burgos on 01-30-2023 Basophils/100 WBC (Bld) 0.5 % 0-1 [facility] Eosinophils/100 WBC (Bld) 0.5 % 0-5 [facility] Neutrophils (Bld) [#/Vol] 6.0 10*3/uL 2.0-7.7 [facility] Neutrophils/100 WBC (Bld) 69.4 % 47-70 [facility] WBC (Bld) [#/Vol] 8.7 10*3/uL 4.4-11.0 [facility] Basophil percentage 0 SEEN /hpf 0-5 [facility] Bilirubin Test strip Ql (U)O rdered By: Renard Burgos on 01-30-2023 Bilirubin Ql (U) Negative Negative [facility] Blood erythrocytes count (nu mber/volume)Ordered By: Renard Burgos on 01-30-2023 RBC (Bld) [#/Vol] 4.50 10*6/uL 4.6-6.2 [facility] Blood hemoglobin measurement (mass/volume)Ordered By: Renard Burgos on 01-30-2023 Hemoglobin (Bld) [Mass/Vol] 13.5 g/dL 13.0-16.5 [facility] Blood lymphocytes/100 leukoc ytesOrdered By: Renard Burgos on 01-30-2023 Lymphocytes/100 WBC (Bld) 22.1 % 19-41 [facility] Blood monocytes/100 leukocyt esOrdered By: Renard Burgos on 01-30-2023 Monocytes/100 WBC (Bld) 7.2 % 0-10 [facility] Blood platelet mean volumeOr dered By: Renard Burgos on 01-30-2023 Platelet mean volume (Bld) [Entitic vol] 11.1 fL 6.2-12.0 [facility] Culture, urineOrdered By: Garrick hBatt on 01-30-2023 Bacteria identified Cx Nom (U) Positive [facility] Determination of erythrocyte mean corpuscular volume (MCV)Ordered By: Renard Burgos on 01-30-2023 MCV (RBC) [Entitic vol] 91.3 fL 80-94 [facility] Hematocrit Auto (Bld) [Volum e fraction]Ordered By: Renard Burgos on 01-30-2023 Hematocrit (Bld) [Volume fraction] 41.1 % 40-54 [facility] Ketones Test strip Ql (U)Ord ered By: Renard Burgos on 01-30-2023 Ketones Ql (U) Negative Negative [facility] Laboratory - Hematology and Cell countsOrdered By: Renard Burgos on 01-30-2023 Erythrocyte distribution width (RBC) [Entitic vol] 41.4 fL 35.1-43.9 [facility] Erythrocyte distribution width (RBC) [Ratio] 12.6 % 11.6-14.6 [facility] Immature granulocytes/100 WBC (Bld) 0.300 % 0.0-0.9 [facility] Comment on above: IG% - Immature Granu locytes (promyelocytes, myelocytes and metamyelocytes) > 1% indicates that a LEFT SHIFT is Present. MCH (RBC) [Entitic mass] 30.0 pg 27.0-32.0 [facility] Nucleated RBC/100 WBC (Bld) [Ratio] 0 % 0-5 [facility] MCHC Auto (RBC) [Mass/Vol]Or dered By: Renrad Brugos on 01-30-2023 MCHC (RBC) [Mass/Vol] 32.8 g/dL 32-36 [facility] Mucus LM Ql (Urine sed)Order ed By: Renard Burgos on 01-30-2023 Mucus Ql (Urine sed) 0 SEEN /hpf [facility] Nitrite Test strip Ql (U)Ord ered By: Renard Burgos on 01-30-2023 Nitrite Ql (U) Negative Negative [facility] No Panel InformationOrdered By: Renard Burgos on 01-30-2023 Prostate Specific Antigen Screen 4.18 ng/mL 0.00-4.00 [facility] Comment on above: This test was perfor med using the TPSA assay method for the[employer] chemistry system. Values obtained with differentassay methods cannot be used interchangably.When changing PSA assays in the course of monitoring apatient, additional sequential testing should be carriedout to confirm baseline values. Platelets bldOrdered By: Lyubov Burgos on 01-30-2023 Platelets (Bld) [#/Vol] 205 10*3/uL 150-450 [facility] Protein Test strip Ql (U)Ord ered By: Renard Burgos on 01-30-2023 Protein Ql (U) Negative Negative [facility] Squamous epithelial cells de tection in urine sediment by light microscopyOrdered By: Renard Burgos on 01-30-2023 Epithelial cells.squamous LM Ql (Urine sed) 0-5 SEEN /hpf 0-5 [facility] Urine blood detectionOrdered By: Renard Burgos on 01-30-2023 RBC Ql (U) Negative Negative [facility] RBC Ql (U) 0 SEEN /hpf 0-5 [facility] Urine clarityOrdered By: Lyubov Burgos on 01-30-2023 Clarity (U) Clear Clear [facility] Urine color determinationOrd ered By: Renard Burgos on 01-30-2023 Color (U) Yellow Yellow [facility] Urine glucose detectionOrder ed By: Renard Burgos on 01-30-2023 Glucose Ql (U) Normal mg/dl Normal [facility] Urine leukocyte esterase det ection by dipstickOrdered By: Renard Burgos on 01-30-2023 Leukocyte esterase Test strip Ql (U) Negative Negative [facility] Urine pHOrdered By: Renard ocampo on 01-30-2023 pH (U) 8.0 [pH] 5.0 - 8.0 [facility] Urine sediment bacteria coun t by microscopy (number/high power field)Ordered By: Renard Burgos on 01-30-2023 Bacteria LM.HPF (Urine sed) [#/Area] 0 /[HPF] None Seen [facility] Urine specific gravity measu rementOrdered By: Renard Burgos on 01-30-2023 Specific gravity (U) [Rel density] 1.010 1.002-1.030 [facility] Urobilinogen Auto test strip Ql (U)Ordered By: Renard Burgos on 01-30-2023 Urobilinogen Ql (U) Normal mg/dl Normal [facility] Absolute lymphocyte countOrd ered By: Renard Burgos on 01-23-2023 Lymphocytes Auto (Unsp spec) [#/Vol] 2.32 10*3/uL 0.83-4.51 [facility] Basophil percentageOrdered B y: Renard Burgos on 01-23-2023 Basophils/100 WBC (Bld) 0.6 % 0-1 [facility] Eosinophils/100 WBC (Bld) 0.4 % 0-5 [facility] Neutrophils (Bld) [#/Vol] 5.3 10*3/uL 2.0-7.7 [facility] Neutrophils/100 WBC (Bld) 62.7 % 47-70 [facility] WBC (Bld) [#/Vol] 8.4 10*3/uL 4.4-11.0 [facility] Blood erythrocytes count (nu mber/volume)Ordered By: Renard Burgos on 01-23-2023 RBC (Bld) [#/Vol] 4.49 10*6/uL 4.6-6.2 [facility] Blood hemoglobin measurement (mass/volume)Ordered By: Renard Burgos on 01-23-2023 Hemoglobin (Bld) [Mass/Vol] 13.6 g/dL 13.0-16.5 [facility] Blood lymphocytes/100 leukoc ytesOrdered By: Renard Burgos on 01-23-2023 Lymphocytes/100 WBC (Bld) 27.5 % 19-41 [facility] Blood monocytes/100 leukocyt esOrdered By: Renard Burgos on 01-23-2023 Monocytes/100 WBC (Bld) 8.2 % 0-10 [facility] Blood platelet mean volumeOr dered By: Renard Burgos on 01-23-2023 Platelet mean volume (Bld) [Entitic vol] 10.9 fL 6.2-12.0 [facility] Determination of erythrocyte mean corpuscular volume (MCV)Ordered By: Renard Burgos on 01-23-2023 MCV (RBC) [Entitic vol] 93.1 fL 80-94 [facility] Hematocrit Auto (Bld) [Volum e fraction]Ordered By: Renard Burgos on 01-23-2023 Hematocrit (Bld) [Volume fraction] 41.8 % 40-54 [facility] Laboratory - Hematology and Cell countsOrdered By: Renard Burgos on 01-23-2023 Erythrocyte distribution width (RBC) [Entitic vol] 42.7 fL 35.1-43.9 [facility] Erythrocyte distribution width (RBC) [Ratio] 12.6 % 11.6-14.6 [facility] Immature granulocytes/100 WBC (Bld) 0.600 % 0.0-0.9 [facility] Comment on above: IG% - Immature Granu locytes (promyelocytes, myelocytes and metamyelocytes) > 1% indicates that a LEFT SHIFT is Present. MCH (RBC) [Entitic mass] 30.3 pg 27.0-32.0 [facility] Nucleated RBC/100 WBC (Bld) [Ratio] 0 % 0-5 [facility] MCHC Auto (RBC) [Mass/Vol]Or dered By: Renard Burgos on 01-23-2023 MCHC (RBC) [Mass/Vol] 32.5 g/dL 32-36 [facility] Platelets bldOrdered By: Lyubov lizy Loretta on 01-23-2023 Platelets (Bld) [#/Vol] 220 10*3/uL 150-450 [facility] Absolute lymphocyte countOrd ered By: Renard Burgos on 01-16-2023 Lymphocytes Auto (Unsp spec) [#/Vol] 1.80 10*3/uL 0.83-4.51 [facility] Basophil percentageOrdered B y: Renard Burgos on 01-16-2023 Basophils/100 WBC (Bld) 0.4 % 0-1 [facility] Eosinophils/100 WBC (Bld) 0.4 % 0-5 [facility] Neutrophils (Bld) [#/Vol] 7.2 10*3/uL 2.0-7.7 [facility] Neutrophils/100 WBC (Bld) 73.5 % 47-70 [facility] WBC (Bld) [#/Vol] 9.8 10*3/uL 4.4-11.0 [facility] Blood erythrocytes count (nu mber/volume)Ordered By: Renard Burgos on 01-16-2023 RBC (Bld) [#/Vol] 4.77 10*6/uL 4.6-6.2 [facility] Blood hemoglobin measurement (mass/volume)Ordered By: Renard Burgos on 01-16-2023 Hemoglobin (Bld) [Mass/Vol] 14.1 g/dL 13.0-16.5 [facility] Blood lymphocytes/100 leukoc ytesOrdered By: Renard Burgos on 01-16-2023 Lymphocytes/100 WBC (Bld) 18.4 % 19-41 [facility] Blood monocytes/100 leukocyt esOrdered By: Renard Burgos on 01-16-2023 Monocytes/100 WBC (Bld) 6.9 % 0-10 [facility] Blood platelet mean volumeOr dered By: Renard Burgos on 01-16-2023 Platelet mean volume (Bld) [Entitic vol] 10.6 fL 6.2-12.0 [facility] Determination of erythrocyte mean corpuscular volume (MCV)Ordered By: Renard Burgos on 01-16-2023 MCV (RBC) [Entitic vol] 92.5 fL 80-94 [facility] Hematocrit Auto (Bld) [Volum e fraction]Ordered By: Renard Burgos on 01-16-2023 Hematocrit (Bld) [Volume fraction] 44.1 % 40-54 [facility] Laboratory - Hematology and Cell countsOrdered By: Renard Burgos on 01-16-2023 Erythrocyte distribution width (RBC) [Entitic vol] 41.8 fL 35.1-43.9 [facility] Erythrocyte distribution width (RBC) [Ratio] 12.4 % 11.6-14.6 [facility] Immature granulocytes/100 WBC (Bld) 0.400 % 0.0-0.9 [facility] Comment on above: IG% - Immature Granu locytes (promyelocytes, myelocytes and metamyelocytes) > 1% indicates that a LEFT SHIFT is Present. MCH (RBC) [Entitic mass] 29.6 pg 27.0-32.0 [facility] Nucleated RBC/100 WBC (Bld) [Ratio] 0 % 0-5 [facility] MCHC Auto (RBC) [Mass/Vol]Or dered By: Renard Burgos on 01-16-2023 MCHC (RBC) [Mass/Vol] 32.0 g/dL 32-36 [facility] Platelets bldOrdered By: Lyubov Burgos on 01-16-2023 Platelets (Bld) [#/Vol] 221 10*3/uL 150-450 [facility] Absolute lymphocyte countOrd ered By: Renard Burgos on 01-09-2023 Lymphocytes Auto (Unsp spec) [#/Vol] 2.41 10*3/uL 0.83-4.51 [facility] Basophil percentageOrdered B y: Renard Burgos on 01-09-2023 Basophils/100 WBC (Bld) 0.7 % 0-1 [facility] Eosinophils/100 WBC (Bld) 0.8 % 0-5 [facility] Neutrophils (Bld) [#/Vol] 5.4 10*3/uL 2.0-7.7 [facility] Neutrophils/100 WBC (Bld) 60.5 % 47-70 [facility] WBC (Bld) [#/Vol] 8.9 10*3/uL 4.4-11.0 [facility] Blood erythrocytes count (nu mber/volume)Ordered By: Renard Burgos on 01-09-2023 RBC (Bld) [#/Vol] 4.56 10*6/uL 4.6-6.2 [facility] Blood hemoglobin measurement (mass/volume)Ordered By: Renard Burgos on 01-09-2023 Hemoglobin (Bld) [Mass/Vol] 13.8 g/dL 13.0-16.5 [facility] Blood lymphocytes/100 leukoc ytesOrdered By: Renard Burgos on 01-09-2023 Lymphocytes/100 WBC (Bld) 27.0 % 19-41 [facility] Blood monocytes/100 leukocyt esOrdered By: Renard Burgos on 01-09-2023 Monocytes/100 WBC (Bld) 10.7 % 0-10 [facility] Blood platelet mean volumeOr dered By: Renard Burgos on 01-09-2023 Platelet mean volume (Bld) [Entitic vol] 10.8 fL 6.2-12.0 [facility] Determination of erythrocyte mean corpuscular volume (MCV)Ordered By: Renard Burgos on 01-09-2023 MCV (RBC) [Entitic vol] 92.5 fL 80-94 [facility] Hematocrit Auto (Bld) [Volum e fraction]Ordered By: Renard Burgos on 01-09-2023 Hematocrit (Bld) [Volume fraction] 42.2 % 40-54 [facility] Laboratory - Hematology and Cell countsOrdered By: Renard Burgos on 01-09-2023 Erythrocyte distribution width (RBC) [Entitic vol] 42.7 fL 35.1-43.9 [facility] Erythrocyte distribution width (RBC) [Ratio] 12.5 % 11.6-14.6 [facility] Immature granulocytes/100 WBC (Bld) 0.300 % 0.0-0.9 [facility] Comment on above: IG% - Immature Granu locytes (promyelocytes, myelocytes and metamyelocytes) > 1% indicates that a LEFT SHIFT is Present. MCH (RBC) [Entitic mass] 30.3 pg 27.0-32.0 [facility] Nucleated RBC/100 WBC (Bld) [Ratio] 0 % 0-5 [facility] MCHC Auto (RBC) [Mass/Vol]Or dered By: Renard Burgos on 01-09-2023 MCHC (RBC) [Mass/Vol] 32.7 g/dL 32-36 [facility] Platelets bldOrdered By: Lyubov Burgos on 01-09-2023 Platelets (Bld) [#/Vol] 209 10*3/uL 150-450 [facility] Absolute lymphocyte countOrd ered By: Renard Burgos on 01-03-2023 Lymphocytes Auto (Unsp spec) [#/Vol] 2.18 10*3/uL 0.83-4.51 [facility] Basophil percentageOrdered B y: Renard Burgos on 01-03-2023 Basophils/100 WBC (Bld) 0.6 % 0-1 [facility] Eosinophils/100 WBC (Bld) 0.5 % 0-5 [facility] Neutrophils (Bld) [#/Vol] 5.4 10*3/uL 2.0-7.7 [facility] Neutrophils/100 WBC (Bld) 64.2 % 47-70 [facility] WBC (Bld) [#/Vol] 8.4 10*3/uL 4.4-11.0 [facility] Blood erythrocytes count (nu mber/volume)Ordered By: Renard Burgos on 01-03-2023 RBC (Bld) [#/Vol] 4.59 10*6/uL 4.6-6.2 [facility] Blood hemoglobin measurement (mass/volume)Ordered By: Renard Burgos on 01-03-2023 Hemoglobin (Bld) [Mass/Vol] 13.9 g/dL 13.0-16.5 [facility] Blood lymphocytes/100 leukoc ytesOrdered By: Renard Burgos on 01-03-2023 Lymphocytes/100 WBC (Bld) 25.9 % 19-41 [facility] Blood monocytes/100 leukocyt esOrdered By: Renard Burgos on 01-03-2023 Monocytes/100 WBC (Bld) 8.3 % 0-10 [facility] Blood platelet mean volumeOr dered By: Renard Burgos on 01-03-2023 Platelet mean volume (Bld) [Entitic vol] 11.0 fL 6.2-12.0 [facility] Determination of erythrocyte mean corpuscular volume (MCV)Ordered By: Renard Burgos on 01-03-2023 MCV (RBC) [Entitic vol] 92.8 fL 80-94 [facility] Hematocrit Auto (Bld) [Volum e fraction]Ordered By: Renard Burgos on 01-03-2023 Hematocrit (Bld) [Volume fraction] 42.6 % 40-54 [facility] Laboratory - Hematology and Cell countsOrdered By: Renard Burgos on 01-03-2023 Erythrocyte distribution width (RBC) [Entitic vol] 42.5 fL 35.1-43.9 [facility] Erythrocyte distribution width (RBC) [Ratio] 12.6 % 11.6-14.6 [facility] Immature granulocytes/100 WBC (Bld) 0.500 % 0.0-0.9 [facility] Comment on above: IG% - Immature Granu locytes (promyelocytes, myelocytes and metamyelocytes) > 1% indicates that a LEFT SHIFT is Present. MCH (RBC) [Entitic mass] 30.3 pg 27.0-32.0 [facility] Nucleated RBC/100 WBC (Bld) [Ratio] 0 % 0-5 [facility] MCHC Auto (RBC) [Mass/Vol]Or dered By: Renard Burgos on 01-03-2023 MCHC (RBC) [Mass/Vol] 32.6 g/dL 32-36 [facility] No Panel InformationOrdered By: Renard Burgos on 01-03-2023 Prostate Specific Antigen Screen 3.37 ng/mL 0.00-4.00 [facility] Comment on above: This test was perfor med using the TPSA assay method for [facility]. Values obtained with differentassay methods cannot be used interchangably.When changing PSA assays in the course of monitoring apatient, additional sequential testing should be carriedout to confirm baseline values. Platelets bldOrdered By: Lyubov Burgos on 01-03-2023 Platelets (Bld) [#/Vol] 200 10*3/uL 150-450 [facility] Absolute lymphocyte countOrd ered By: Renard Burgos on 12-26-2022 Lymphocytes Auto (Unsp spec) [#/Vol] 1.80 10*3/uL 0.83-4.51 [facility] Basophil percentageOrdered B y: Renard Burgos on 12-26-2022 Basophils/100 WBC (Bld) 0.4 % 0-1 [facility] Eosinophils/100 WBC (Bld) 0.6 % 0-5 [facility] Neutrophils (Bld) [#/Vol] 6.2 10*3/uL 2.0-7.7 [facility] Neutrophils/100 WBC (Bld) 69.8 % 47-70 [facility] WBC (Bld) [#/Vol] 8.9 10*3/uL 4.4-11.0 [facility] Blood erythrocytes count (nu mber/volume)Ordered By: Renard Burgos on 12-26-2022 RBC (Bld) [#/Vol] 4.58 10*6/uL 4.6-6.2 [facility] Blood hemoglobin measurement (mass/volume)Ordered By: Renard Burgos on 12-26-2022 Hemoglobin (Bld) [Mass/Vol] 14.0 g/dL 13.0-16.5 [facility] Blood lymphocytes/100 leukoc ytesOrdered By: Renard Burgos on 12-26-2022 Lymphocytes/100 WBC (Bld) 20.2 % 19-41 [facility] Blood monocytes/100 leukocyt esOrdered By: Renard Burgos on 12-26-2022 Monocytes/100 WBC (Bld) 8.6 % 0-10 [facility] Blood platelet mean volumeOr dered By: Renard Burgos on 12-26-2022 Platelet mean volume (Bld) [Entitic vol] 10.8 fL 6.2-12.0 [facility] Determination of erythrocyte mean corpuscular volume (MCV)Ordered By: Renard Burgos on 12-26-2022 MCV (RBC) [Entitic vol] 93.2 fL 80-94 [facility] Hematocrit Auto (Bld) [Volum e fraction]Ordered By: Renard Burgos on 12-26-2022 Hematocrit (Bld) [Volume fraction] 42.7 % 40-54 [facility] Laboratory - Hematology and Cell countsOrdered By: Renard Burgos on 12-26-2022 Erythrocyte distribution width (RBC) [Entitic vol] 42.5 fL 35.1-43.9 [facility] Erythrocyte distribution width (RBC) [Ratio] 12.5 % 11.6-14.6 [facility] Immature granulocytes/100 WBC (Bld) 0.400 % 0.0-0.9 [facility] Comment on above: IG% - Immature Granu locytes (promyelocytes, myelocytes and metamyelocytes) > 1% indicates that a LEFT SHIFT is Present. MCH (RBC) [Entitic mass] 30.6 pg 27.0-32.0 [facility] Nucleated RBC/100 WBC (Bld) [Ratio] 0 % 0-5 [facility] MCHC Auto (RBC) [Mass/Vol]Or dered By: Renard Burgos on 12-26-2022 MCHC (RBC) [Mass/Vol] 32.8 g/dL 32-36 [facility] Platelets bldOrdered By: Lyubov Burgos on 12-26-2022 Platelets (Bld) [#/Vol] 200 10*3/uL 150-450 [facility] Absolute lymphocyte countOrd ered By: Renard Burgos on 12-19-2022 Lymphocytes Auto (Unsp spec) [#/Vol] 2.24 10*3/uL 0.83-4.51 [facility] Basophil percentageOrdered B y: Renard Burgos on 12-19-2022 Basophils/100 WBC (Bld) 0.3 % 0-1 [facility] Eosinophils/100 WBC (Bld) 0.8 % 0-5 [facility] Neutrophils (Bld) [#/Vol] 5.7 10*3/uL 2.0-7.7 [facility] Neutrophils/100 WBC (Bld) 64.1 % 47-70 [facility] WBC (Bld) [#/Vol] 8.9 10*3/uL 4.4-11.0 [facility] Blood erythrocytes count (nu mber/volume)Ordered By: Renard Burgos on 08-21-2023 RBC (Bld) [#/Vol] 4.44 10*6/uL 4.6-6.2 [facility] Blood hemoglobin measurement (mass/volume)Ordered By: Renard Burgos on 12-19-2022 Hemoglobin (Bld) [Mass/Vol] 13.5 g/dL 13.0-16.5 [facility] Blood lymphocytes/100 leukoc ytesOrdered By: Renard Burgos on 12-19-2022 Lymphocytes/100 WBC (Bld) 25.1 % 19-41 [facility] Blood monocytes/100 leukocyt esOrdered By: Renard Burgos on 12-19-2022 Monocytes/100 WBC (Bld) 9.4 % 0-10 [facility] Blood platelet mean volumeOr dered By: Renard Burgos on 12-19-2022 Platelet mean volume (Bld) [Entitic vol] 11.0 fL 6.2-12.0 [facility] Determination of erythrocyte mean corpuscular volume (MCV)Ordered By: Renard Burgos on 12-19-2022 MCV (RBC) [Entitic vol] 92.8 fL 80-94 [facility] Hematocrit Auto (Bld) [Volum e fraction]Ordered By: Renard Burgos on 12-19-2022 Hematocrit (Bld) [Volume fraction] 41.2 % 40-54 [facility] Laboratory - Hematology and Cell countsOrdered By: Renard Burgos on 12-19-2022 Erythrocyte distribution width (RBC) [Entitic vol] 43.2 fL 35.1-43.9 [facility] Erythrocyte distribution width (RBC) [Ratio] 12.7 % 11.6-14.6 [facility] Immature granulocytes/100 WBC (Bld) 0.300 % 0.0-0.9 [facility] Comment on above: IG% - Immature Granu locytes (promyelocytes, myelocytes and metamyelocytes) > 1% indicates that a LEFT SHIFT is Present. MCH (RBC) [Entitic mass] 30.4 pg 27.0-32.0 [facility] Nucleated RBC/100 WBC (Bld) [Ratio] 0 % 0-5 [facility] MCHC Auto (RBC) [Mass/Vol]Or dered By: Renard Burgos on 12-19-2022 MCHC (RBC) [Mass/Vol] 32.8 g/dL 32-36 [facility] Platelets bldOrdered By: Lyubov lizy Loretta on 12-19-2022 Platelets (Bld) [#/Vol] 194 10*3/uL 150-450 [facility] Absolute lymphocyte countOrd ered By: Renard Burgos on 12-12-2022 Lymphocytes Auto (Unsp spec) [#/Vol] 2.33 10*3/uL 0.83-4.51 [facility] Basophil percentageOrdered B y: Renard Burgos on 12-12-2022 Basophils/100 WBC (Bld) 0.6 % 0-1 [facility] Eosinophils/100 WBC (Bld) 0.9 % 0-5 [facility] Neutrophils (Bld) [#/Vol] 5.8 10*3/uL 2.0-7.7 [facility] Neutrophils/100 WBC (Bld) 63.5 % 47-70 [facility] WBC (Bld) [#/Vol] 9.1 10*3/uL 4.4-11.0 [facility] Blood erythrocytes count (nu mber/volume)Ordered By: Renard Burgos on 12-12-2022 RBC (Bld) [#/Vol] 4.52 10*6/uL 4.6-6.2 [facility] Blood hemoglobin measurement (mass/volume)Ordered By: Renard Burgos on 12-12-2022 Hemoglobin (Bld) [Mass/Vol] 13.9 g/dL 13.0-16.5 [facility] Blood lymphocytes/100 leukoc ytesOrdered By: Renard Burgos on 12-12-2022 Lymphocytes/100 WBC (Bld) 25.6 % 19-41 [facility] Blood monocytes/100 leukocyt esOrdered By: Renard Burgos on 12-12-2022 Monocytes/100 WBC (Bld) 9.1 % 0-10 [facility] Blood platelet mean volumeOr dered By: Renard Burgos on 12-12-2022 Platelet mean volume (Bld) [Entitic vol] 10.9 fL 6.2-12.0 [facility] Determination of erythrocyte mean corpuscular volume (MCV)Ordered By: Renard Burgos on 12-12-2022 MCV (RBC) [Entitic vol] 94.2 fL 80-94 [facility] Hematocrit Auto (Bld) [Volum e fraction]Ordered By: Renard Burgos on 12-12-2022 Hematocrit (Bld) [Volume fraction] 42.6 % 40-54 [facility] Laboratory - Hematology and Cell countsOrdered By: Renard Burgos on 12-12-2022 Erythrocyte distribution width (RBC) [Entitic vol] 44.3 fL 35.1-43.9 [facility] Erythrocyte distribution width (RBC) [Ratio] 12.8 % 11.6-14.6 [facility] Immature granulocytes/100 WBC (Bld) 0.300 % 0.0-0.9 [facility] Comment on above: IG% - Immature Granu locytes (promyelocytes, myelocytes and metamyelocytes) > 1% indicates that a LEFT SHIFT is Present. MCH (RBC) [Entitic mass] 30.8 pg 27.0-32.0 [facility] Nucleated RBC/100 WBC (Bld) [Ratio] 0 % 0-5 [facility] MCHC Auto (RBC) [Mass/Vol]Or dered By: Renard Burgos on 12-12-2022 MCHC (RBC) [Mass/Vol] 32.6 g/dL 32-36 [facility] Platelets bldOrdered By: Lyubov Burgos on 12-12-2022 Platelets (Bld) [#/Vol] 211 10*3/uL 150-450 [facility] Absolute lymphocyte countOrd ered By: Renard Burgos on 12-05-2022 Lymphocytes Auto (Unsp spec) [#/Vol] 1.94 10*3/uL 0.83-4.51 [facility] Basophil percentageOrdered B y: Renard Burgos on 12-05-2022 Basophils/100 WBC (Bld) 0.4 % 0-1 [facility] Eosinophils/100 WBC (Bld) 0.9 % 0-5 [facility] Neutrophils (Bld) [#/Vol] 4.1 10*3/uL 2.0-7.7 [facility] Neutrophils/100 WBC (Bld) 61.2 % 47-70 [facility] WBC (Bld) [#/Vol] 6.7 10*3/uL 4.4-11.0 [facility] Blood erythrocytes count (nu mber/volume)Ordered By: Renard Burgos on 12-05-2022 RBC (Bld) [#/Vol] 4.39 10*6/uL 4.6-6.2 [facility] Blood hemoglobin measurement (mass/volume)Ordered By: Renard Burgos on 12-05-2022 Hemoglobin (Bld) [Mass/Vol] 13.3 g/dL 13.0-16.5 [facility] Blood lymphocytes/100 leukoc ytesOrdered By: Renard Burgos on 12-05-2022 Lymphocytes/100 WBC (Bld) 28.8 % 19-41 [facility] Blood monocytes/100 leukocyt esOrdered By: Renard Burgos on 12-05-2022 Monocytes/100 WBC (Bld) 8.3 % 0-10 [facility] Blood platelet mean volumeOr dered By: Renard Burgos on 12-05-2022 Platelet mean volume (Bld) [Entitic vol] 10.8 fL 6.2-12.0 [facility] Determination of erythrocyte mean corpuscular volume (MCV)Ordered By: Renard Burgos on 12-05-2022 MCV (RBC) [Entitic vol] 90.7 fL 80-94 [facility] Hematocrit Auto (Bld) [Volum e fraction]Ordered By: Renard Burgos on 12-05-2022 Hematocrit (Bld) [Volume fraction] 39.8 % 40-54 [facility] Laboratory - Hematology and Cell countsOrdered By: Renard Burgos on 12-05-2022 Erythrocyte distribution width (RBC) [Entitic vol] 41.8 fL 35.1-43.9 [facility] Erythrocyte distribution width (RBC) [Ratio] 12.6 % 11.6-14.6 [facility] Immature granulocytes/100 WBC (Bld) 0.400 % 0.0-0.9 [facility] Comment on above: IG% - Immature Granu locytes (promyelocytes, myelocytes and metamyelocytes) > 1% indicates that a LEFT SHIFT is Present. MCH (RBC) [Entitic mass] 30.3 pg 27.0-32.0 [facility] Nucleated RBC/100 WBC (Bld) [Ratio] 0 % 0-5 [facility] MCHC Auto (RBC) [Mass/Vol]Or dered By: Renard Burgos on 12-05-2022 MCHC (RBC) [Mass/Vol] 33.4 g/dL 32-36 [facility] Platelets bldOrdered By: Lyubov Burgos on 12-05-2022 Platelets (Bld) [#/Vol] 208 10*3/uL 150-450 [facility] Absolute lymphocyte countOrd ered By: Renard Burgos on 11-28-2022 Lymphocytes Auto (Unsp spec) [#/Vol] 2.07 10*3/uL 0.83-4.51 [facility] Basophil percentageOrdered B y: Renard Bugros on 11-28-2022 Basophils/100 WBC (Bld) 0.4 % 0-1 [facility] Eosinophils/100 WBC (Bld) 0.6 % 0-5 [facility] Neutrophils (Bld) [#/Vol] 5.1 10*3/uL 2.0-7.7 [facility] Neutrophils/100 WBC (Bld) 64.6 % 47-70 [facility] WBC (Bld) [#/Vol] 7.9 10*3/uL 4.4-11.0 [facility] Blood erythrocytes count (nu mber/volume)Ordered By: Renard Burgos on 11-28-2022 RBC (Bld) [#/Vol] 4.54 10*6/uL 4.6-6.2 [facility] Blood hemoglobin measurement (mass/volume)Ordered By: Renard Burgos on 11-28-2022 Hemoglobin (Bld) [Mass/Vol] 13.7 g/dL 13.0-16.5 [facility] Blood lymphocytes/100 leukoc ytesOrdered By: Renard Burgos on 11-28-2022 Lymphocytes/100 WBC (Bld) 26.2 % 19-41 [facility] Blood monocytes/100 leukocyt esOrdered By: Renard Burgos on 11-28-2022 Monocytes/100 WBC (Bld) 7.7 % 0-10 [facility] Blood platelet mean volumeOr dered By: Renard Burgos on 11-28-2022 Platelet mean volume (Bld) [Entitic vol] 10.6 fL 6.2-12.0 [facility] Determination of erythrocyte mean corpuscular volume (MCV)Ordered By: Renard Burgos on 11-28-2022 MCV (RBC) [Entitic vol] 93.6 fL 80-94 [facility] Hematocrit Auto (Bld) [Volum e fraction]Ordered By: Renard Burgos on 11-28-2022 Hematocrit (Bld) [Volume fraction] 42.5 % 40-54 [facility] Laboratory - Hematology and Cell countsOrdered By: Renard Burgos on 11-28-2022 Erythrocyte distribution width (RBC) [Entitic vol] 43.5 fL 35.1-43.9 [facility] Erythrocyte distribution width (RBC) [Ratio] 12.7 % 11.6-14.6 [facility] Immature granulocytes/100 WBC (Bld) 0.500 % 0.0-0.9 [facility] Comment on above: IG% - Immature Granu locytes (promyelocytes, myelocytes and metamyelocytes) > 1% indicates that a LEFT SHIFT is Present. MCH (RBC) [Entitic mass] 30.2 pg 27.0-32.0 [facility] Nucleated RBC/100 WBC (Bld) [Ratio] 0 % 0-5 [facility] MCHC Auto (RBC) [Mass/Vol]Or dered By: Renard Burgos on 11-28-2022 MCHC (RBC) [Mass/Vol] 32.2 g/dL 32-36 [facility] Platelets bldOrdered By: Lyubov Burgos on 11-28-2022 Platelets (Bld) [#/Vol] 201 10*3/uL 150-450 [facility] Absolute lymphocyte countOrd ered By: Renard Burgos on 11-21-2022 Lymphocytes Auto (Unsp spec) [#/Vol] 2.32 10*3/uL 0.83-4.51 [facility] Basophil percentageOrdered B y: Renard Burgos on 11-21-2022 Basophils/100 WBC (Bld) 0.6 % 0-1 [facility] Eosinophils/100 WBC (Bld) 0.7 % 0-5 [facility] Neutrophils (Bld) [#/Vol] 5.0 10*3/uL 2.0-7.7 [facility] Neutrophils/100 WBC (Bld) 60.6 % 47-70 [facility] WBC (Bld) [#/Vol] 8.2 10*3/uL 4.4-11.0 [facility] Blood erythrocytes count (nu mber/volume)Ordered By: Renard Burgos on 11-21-2022 RBC (Bld) [#/Vol] 4.71 10*6/uL 4.6-6.2 [facility] Blood hemoglobin measurement (mass/volume)Ordered By: Renard Burgos on 11-21-2022 Hemoglobin (Bld) [Mass/Vol] 14.3 g/dL 13.0-16.5 [facility] Blood lymphocytes/100 leukoc ytesOrdered By: Renard Burgos on 11-21-2022 Lymphocytes/100 WBC (Bld) 28.2 % 19-41 [facility] Blood monocytes/100 leukocyt esOrdered By: Renard Burgos on 11-21-2022 Monocytes/100 WBC (Bld) 9.2 % 0-10 [facility] Blood platelet mean volumeOr dered By: Renard Burgos on 11-21-2022 Platelet mean volume (Bld) [Entitic vol] 10.4 fL 6.2-12.0 [facility] Determination of erythrocyte mean corpuscular volume (MCV)Ordered By: Renard Burgos on 11-21-2022 MCV (RBC) [Entitic vol] 91.9 fL 80-94 [facility] Hematocrit Auto (Bld) [Volum e fraction]Ordered By: Renard Burgos on 11-21-2022 Hematocrit (Bld) [Volume fraction] 43.3 % 40-54 [facility] Laboratory - Hematology and Cell countsOrdered By: Renard Burgos on 11-21-2022 Erythrocyte distribution width (RBC) [Entitic vol] 43.1 fL 35.1-43.9 [facility] Erythrocyte distribution width (RBC) [Ratio] 12.8 % 11.6-14.6 [facility] Immature granulocytes/100 WBC (Bld) 0.700 % 0.0-0.9 [facility] Comment on above: IG% - Immature Granu locytes (promyelocytes, myelocytes and metamyelocytes) > 1% indicates that a LEFT SHIFT is Present. MCH (RBC) [Entitic mass] 30.4 pg 27.0-32.0 [facility] Nucleated RBC/100 WBC (Bld) [Ratio] 0 % 0-5 [facility] MCHC Auto (RBC) [Mass/Vol]Or dered By: Renard Burgos on 11-21-2022 MCHC (RBC) [Mass/Vol] 33.0 g/dL 32-36 [facility] Platelets bldOrdered By: Lyubov Burgos on 11-21-2022 Platelets (Bld) [#/Vol] 219 10*3/uL 150-450 [facility] Absolute lymphocyte countOrd ered By: Renard Burgos on 11-14-2022 Lymphocytes Auto (Unsp spec) [#/Vol] 1.82 10*3/uL 0.83-4.51 [facility] Basophil percentageOrdered B y: Renard Burgos on 11-14-2022 Basophils/100 WBC (Bld) 0.4 % 0-1 [facility] Chloride [Moles/Vol] 107 mmol/L 98-107 [facility] Eosinophils/100 WBC (Bld) 0.4 % 0-5 [facility] Glucose [Mass/Vol] 121 mg/dL 74-106 [facility] Comment on above: Fasting Glucose resu lt from 100 to 125 mg/dL suggests IMPAIRED HOMEOSTASIS per A.D.A. criteria. Neutrophils (Bld) [#/Vol] 4.7 10*3/uL 2.0-7.7 [facility] Neutrophils/100 WBC (Bld) 66.6 % 47-70 [facility] Potassium [Moles/Vol] 3.7 mmol/L 3.5-5.1 [facility] Sodium [Moles/Vol] 141 mmol/L 136-145 [facility] WBC (Bld) [#/Vol] 7.1 10*3/uL 4.4-11.0 [facility] Blood erythrocytes count (nu mber/volume)Ordered By: Renard Burgos on 11-14-2022 RBC (Bld) [#/Vol] 4.35 10*6/uL 4.6-6.2 [facility] Blood hemoglobin measurement (mass/volume)Ordered By: Renard Burgos on 11-14-2022 Hemoglobin (Bld) [Mass/Vol] 13.6 g/dL 13.0-16.5 [facility] Blood lymphocytes/100 leukoc ytesOrdered By: Renard Burgos on 11-14-2022 Lymphocytes/100 WBC (Bld) 25.6 % 19-41 [facility] Blood monocytes/100 leukocyt esOrdered By: Renard Burgos on 11-14-2022 Monocytes/100 WBC (Bld) 6.6 % 0-10 [facility] Blood platelet mean volumeOr dered By: Renard Burgos on 11-14-2022 Platelet mean volume (Bld) [Entitic vol] 10.9 fL 6.2-12.0 [facility] Determination of erythrocyte mean corpuscular volume (MCV)Ordered By: Renard Burgos on 11-14-2022 MCV (RBC) [Entitic vol] 93.3 fL 80-94 [facility] Hematocrit Auto (Bld) [Volum e fraction]Ordered By: Renard Burgos on 11-14-2022 Hematocrit (Bld) [Volume fraction] 40.6 % 40-54 [facility] Laboratory - Chemistry and C hemistry - challengeOrdered By: Renard Burgos on 11-14-2022 CO2 [Moles/Vol] 31.0 mmol/L 21.0-32.0 [facility] Urea nitrogen/Creatinine [Mass ratio] 26.0 mg/mg 10-20 [facility] Laboratory - Hematology and Cell countsOrdered By: Renard Burgos on 11-14-2022 Erythrocyte distribution width (RBC) [Entitic vol] 43.9 fL 35.1-43.9 [facility] Erythrocyte distribution width (RBC) [Ratio] 12.8 % 11.6-14.6 [facility] Immature granulocytes/100 WBC (Bld) 0.400 % 0.0-0.9 [facility] Comment on above: IG% - Immature Granu locytes (promyelocytes, myelocytes and metamyelocytes) > 1% indicates that a LEFT SHIFT is Present. MCH (RBC) [Entitic mass] 31.3 pg 27.0-32.0 [facility] Nucleated RBC/100 WBC (Bld) [Ratio] 0 % 0-5 [facility] MCHC Auto (RBC) [Mass/Vol]Or dered By: Renard Burgos on 11-14-2022 MCHC (RBC) [Mass/Vol] 33.5 g/dL 32-36 [facility] No Panel InformationOrdered By: Renard Burgos on 11-14-2022 Estimated GFR (MDRD) Amer 147 mL/min >60 [facility] Comment on above: GFR Calc Estimated GFR (MDRD) Non-Af Amer 122 mL/min >60 [facility] Comment on above: Non- GFR Calc Platelets bldOrdered By: Lyubov Burgos on 11-14-2022 Platelets (Bld) [#/Vol] 202 10*3/uL 150-450 [facility] Serum or plasma calcium gordy urement (mass/volume)Ordered By: Renard Burgos on 11-14-2022 Calcium [Mass/Vol] 8.2 mg/dL 8.5-10.1 [facility] Serum or plasma creatinine m easurement (mass/volume)Ordered By: Renard Burgos on 11-14-2022 Creatinine [Mass/Vol] 0.69 mg/dL 0.70-1.30 [facility] Comment on above: The validity of the calculated GFR & GFRAA in patients over 70 years has not been determined. Clinical correlation is essential. Serum or plasma urea nitroge n measurement (mass/volume)Ordered By: Renard Burgos on 11-14-2022 Urea nitrogen [Mass/Vol] 18 mg/dL 7-18 [facility] Thin prep Papanicolaou smear with manual screeningOrdered By: Renard Burgos on 11-14-2022 Thin prep Papanicolaou smear with manual screening 3 5-15 [facility] Absolute lymphocyte countOrd ered By: Renard Burgos on 11-07-2022 Lymphocytes Auto (Unsp spec) [#/Vol] 1.99 10*3/uL 0.83-4.51 [facility] Basophil percentageOrdered B y: Renard Burgos on 11-07-2022 Basophils/100 WBC (Bld) 0.8 % 0-1 [facility] Eosinophils/100 WBC (Bld) 0.5 % 0-5 [facility] Neutrophils (Bld) [#/Vol] 5.1 10*3/uL 2.0-7.7 [facility] Neutrophils/100 WBC (Bld) 64.0 % 47-70 [facility] WBC (Bld) [#/Vol] 8.0 10*3/uL 4.4-11.0 [facility] Blood erythrocytes count (nu mber/volume)Ordered By: Renard Burgos on 11-07-2022 RBC (Bld) [#/Vol] 4.45 10*6/uL 4.6-6.2 [facility] Blood hemoglobin measurement (mass/volume)Ordered By: Renard Burgos on 11-07-2022 Hemoglobin (Bld) [Mass/Vol] 13.7 g/dL 13.0-16.5 [facility] Blood lymphocytes/100 leukoc ytesOrdered By: Renard Burgos on 11-07-2022 Lymphocytes/100 WBC (Bld) 25.0 % 19-41 [facility] Blood monocytes/100 leukocyt esOrdered By: Renard Burgos on 11-07-2022 Monocytes/100 WBC (Bld) 9.4 % 0-10 [facility] Blood platelet mean volumeOr dered By: Renard Burgos on 11-07-2022 Platelet mean volume (Bld) [Entitic vol] 10.7 fL 6.2-12.0 [facility] Determination of erythrocyte mean corpuscular volume (MCV)Ordered By: Renard Burgos on 11-07-2022 MCV (RBC) [Entitic vol] 91.5 fL 80-94 [facility] Hematocrit Auto (Bld) [Volum e fraction]Ordered By: Renard Burgos on 11-07-2022 Hematocrit (Bld) [Volume fraction] 40.7 % 40-54 [facility] Laboratory - Hematology and Cell countsOrdered By: Renard Burgos on 11-07-2022 Erythrocyte distribution width (RBC) [Entitic vol] 42.4 fL 35.1-43.9 [facility] Erythrocyte distribution width (RBC) [Ratio] 12.8 % 11.6-14.6 [facility] Immature granulocytes/100 WBC (Bld) 0.300 % 0.0-0.9 [facility] Comment on above: IG% - Immature Granu locytes (promyelocytes, myelocytes and metamyelocytes) > 1% indicates that a LEFT SHIFT is Present. MCH (RBC) [Entitic mass] 30.8 pg 27.0-32.0 [facility] Nucleated RBC/100 WBC (Bld) [Ratio] 0 % 0-5 [facility] MCHC Auto (RBC) [Mass/Vol]Or dered By: Renard Burgos on 11-07-2022 MCHC (RBC) [Mass/Vol] 33.7 g/dL 32-36 [facility] Platelets bldOrdered By: Lyubov Burgos on 11-07-2022 Platelets (Bld) [#/Vol] 220 10*3/uL 150-450 [facility] Absolute lymphocyte countOrd ered By: Renard Burgos on 10-31-2022 Lymphocytes Auto (Unsp spec) [#/Vol] 1.97 10*3/uL 0.83-4.51 [facility] Basophil percentageOrdered B y: Renard Burgos on 10-31-2022 Basophils/100 WBC (Bld) 0.5 % 0-1 [facility] Eosinophils/100 WBC (Bld) 0.6 % 0-5 [facility] Neutrophils (Bld) [#/Vol] 6.7 10*3/uL 2.0-7.7 [facility] Neutrophils/100 WBC (Bld) 69.9 % 47-70 [facility] WBC (Bld) [#/Vol] 9.6 10*3/uL 4.4-11.0 [facility] Blood erythrocytes count (nu mber/volume)Ordered By: Renard Burgos on 10-31-2022 RBC (Bld) [#/Vol] 4.47 10*6/uL 4.6-6.2 [facility] Blood hemoglobin measurement (mass/volume)Ordered By: Renard Burgos on 10-31-2022 Hemoglobin (Bld) [Mass/Vol] 13.5 g/dL 13.0-16.5 [facility] Blood lymphocytes/100 leukoc ytesOrdered By: Renard Burgos on 10-31-2022 Lymphocytes/100 WBC (Bld) 20.5 % 19-41 [facility] Blood monocytes/100 leukocyt esOrdered By: Renard Burgos on 10-31-2022 Monocytes/100 WBC (Bld) 7.9 % 0-10 [facility] Blood platelet mean volumeOr dered By: Renard Burgos on 10-31-2022 Platelet mean volume (Bld) [Entitic vol] 11.1 fL 6.2-12.0 [facility] Determination of erythrocyte mean corpuscular volume (MCV)Ordered By: Renard Burgos on 10-31-2022 MCV (RBC) [Entitic vol] 92.4 fL 80-94 [facility] Hematocrit Auto (Bld) [Volum e fraction]Ordered By: Renard Burgos on 10-31-2022 Hematocrit (Bld) [Volume fraction] 41.3 % 40-54 [facility] Laboratory - Hematology and Cell countsOrdered By: Renard Burgos on 10-31-2022 Erythrocyte distribution width (RBC) [Entitic vol] 42.9 fL 35.1-43.9 [facility] Erythrocyte distribution width (RBC) [Ratio] 12.7 % 11.6-14.6 [facility] Immature granulocytes/100 WBC (Bld) 0.600 % 0.0-0.9 [facility] Comment on above: IG% - Immature Granu locytes (promyelocytes, myelocytes and metamyelocytes) > 1% indicates that a LEFT SHIFT is Present. MCH (RBC) [Entitic mass] 30.2 pg 27.0-32.0 [facility] Nucleated RBC/100 WBC (Bld) [Ratio] 0 % 0-5 [facility] MCHC Auto (RBC) [Mass/Vol]Or dered By: Renard Burgos on 10-31-2022 MCHC (RBC) [Mass/Vol] 32.7 g/dL 32-36 [facility] Platelets bldOrdered By: Lyubov Burgos on 10-31-2022 Platelets (Bld) [#/Vol] 221 10*3/uL 150-450 [facility] Absolute lymphocyte countOrd ered By: Renard Burgos on 10-24-2022 Lymphocytes Auto (Unsp spec) [#/Vol] 1.96 10*3/uL 0.83-4.51 [facility] Basophil percentageOrdered B y: Renard Burgos on 10-24-2022 Basophils/100 WBC (Bld) 0.4 % 0-1 [facility] Eosinophils/100 WBC (Bld) 0.7 % 0-5 [facility] Neutrophils (Bld) [#/Vol] 4.5 10*3/uL 2.0-7.7 [facility] Neutrophils/100 WBC (Bld) 61.9 % 47-70 [facility] WBC (Bld) [#/Vol] 7.3 10*3/uL 4.4-11.0 [facility] Blood erythrocytes count (nu mber/volume)Ordered By: Renard Burgos on 10-24-2022 RBC (Bld) [#/Vol] 4.41 10*6/uL 4.6-6.2 [facility] Blood hemoglobin measurement (mass/volume)Ordered By: Renard Burgos on 10-24-2022 Hemoglobin (Bld) [Mass/Vol] 13.2 g/dL 13.0-16.5 [facility] Blood lymphocytes/100 leukoc ytesOrdered By: Renard Burgos on 10-24-2022 Lymphocytes/100 WBC (Bld) 27.0 % 19-41 [facility] Blood monocytes/100 leukocyt esOrdered By: Renard Burgos on 10-24-2022 Monocytes/100 WBC (Bld) 9.4 % 0-10 [facility] Blood platelet mean volumeOr dered By: Renard Burgos on 10-24-2022 Platelet mean volume (Bld) [Entitic vol] 10.9 fL 6.2-12.0 [facility] Determination of erythrocyte mean corpuscular volume (MCV)Ordered By: Renard Burgos on 10-24-2022 MCV (RBC) [Entitic vol] 92.1 fL 80-94 [facility] Hematocrit Auto (Bld) [Volum e fraction]Ordered By: Renard Burgos on 10-24-2022 Hematocrit (Bld) [Volume fraction] 40.6 % 40-54 [facility] Laboratory - Hematology and Cell countsOrdered By: Renard Burgos on 10-24-2022 Erythrocyte distribution width (RBC) [Entitic vol] 42.8 fL 35.1-43.9 [facility] Erythrocyte distribution width (RBC) [Ratio] 12.8 % 11.6-14.6 [facility] Immature granulocytes/100 WBC (Bld) 0.600 % 0.0-0.9 [facility] Comment on above: IG% - Immature Granu locytes (promyelocytes, myelocytes and metamyelocytes) > 1% indicates that a LEFT SHIFT is Present. MCH (RBC) [Entitic mass] 29.9 pg 27.0-32.0 [facility] Nucleated RBC/100 WBC (Bld) [Ratio] 0 % 0-5 [facility] MCHC Auto (RBC) [Mass/Vol]Or dered By: Renard Burgos on 10-24-2022 MCHC (RBC) [Mass/Vol] 32.5 g/dL 32-36 [facility] Platelets bldOrdered By: Lyubov Burgos on 10-24-2022 Platelets (Bld) [#/Vol] 213 10*3/uL 150-450 [facility] Absolute lymphocyte countOrd ered By: Renard Burgos on 10-17-2022 Lymphocytes Auto (Unsp spec) [#/Vol] 2.05 10*3/uL 0.83-4.51 [facility] Basophil percentageOrdered B y: Renard Burgos on 10-17-2022 Basophils/100 WBC (Bld) 0.4 % 0-1 [facility] Eosinophils/100 WBC (Bld) 0.5 % 0-5 [facility] Neutrophils (Bld) [#/Vol] 6.7 10*3/uL 2.0-7.7 [facility] Neutrophils/100 WBC (Bld) 70.9 % 47-70 [facility] WBC (Bld) [#/Vol] 9.4 10*3/uL 4.4-11.0 [facility] Blood erythrocytes count (nu mber/volume)Ordered By: Renard Burgos on 10-17-2022 RBC (Bld) [#/Vol] 4.33 10*6/uL 4.6-6.2 [facility] Blood hemoglobin measurement (mass/volume)Ordered By: Renard Burgos on 10-17-2022 Hemoglobin (Bld) [Mass/Vol] 13.3 g/dL 13.0-16.5 [facility] Blood lymphocytes/100 leukoc ytesOrdered By: Renard Burgos on 10-17-2022 Lymphocytes/100 WBC (Bld) 21.7 % 19-41 [facility] Blood monocytes/100 leukocyt esOrdered By: Renard Burgos on 10-17-2022 Monocytes/100 WBC (Bld) 6.1 % 0-10 [facility] Blood platelet mean volumeOr dered By: Renard Burgos on 10-17-2022 Platelet mean volume (Bld) [Entitic vol] 10.9 fL 6.2-12.0 [facility] Determination of erythrocyte mean corpuscular volume (MCV)Ordered By: Renard Burgos on 10-17-2022 MCV (RBC) [Entitic vol] 93.8 fL 80-94 [facility] Hematocrit Auto (Bld) [Volum e fraction]Ordered By: Renard Burgos on 10-17-2022 Hematocrit (Bld) [Volume fraction] 40.6 % 40-54 [facility] Laboratory - Hematology and Cell countsOrdered By: Renard Burgos on 10-17-2022 Erythrocyte distribution width (RBC) [Entitic vol] 42.7 fL 35.1-43.9 [facility] Erythrocyte distribution width (RBC) [Ratio] 12.4 % 11.6-14.6 [facility] Immature granulocytes/100 WBC (Bld) 0.400 % 0.0-0.9 [facility] Comment on above: IG% - Immature Granu locytes (promyelocytes, myelocytes and metamyelocytes) > 1% indicates that a LEFT SHIFT is Present. MCH (RBC) [Entitic mass] 30.7 pg 27.0-32.0 [facility] Nucleated RBC/100 WBC (Bld) [Ratio] 0 % 0-5 [facility] MCHC Auto (RBC) [Mass/Vol]Or dered By: Renard Burgos on 10-17-2022 MCHC (RBC) [Mass/Vol] 32.8 g/dL 32-36 [facility] Platelets bldOrdered By: Lyubov medel Loretta on 10-17-2022 Platelets (Bld) [#/Vol] 186 10*3/uL 150-450 [facility] Absolute lymphocyte countOrd ered By: Renard Burgos on 10-10-2022 Lymphocytes Auto (Unsp spec) [#/Vol] 2.21 10*3/uL 0.83-4.51 [facility] Basophil percentageOrdered B y: Renard Burgos on 10-10-2022 Basophils/100 WBC (Bld) 0.6 % 0-1 [facility] Eosinophils/100 WBC (Bld) 0.6 % 0-5 [facility] Neutrophils (Bld) [#/Vol] 4.7 10*3/uL 2.0-7.7 [facility] Neutrophils/100 WBC (Bld) 59.6 % 47-70 [facility] WBC (Bld) [#/Vol] 7.9 10*3/uL 4.4-11.0 [facility] Blood erythrocytes count (nu mber/volume)Ordered By: Renard Burgos on 10-10-2022 RBC (Bld) [#/Vol] 4.78 10*6/uL 4.6-6.2 [facility] Blood hemoglobin measurement (mass/volume)Ordered By: Renard Burgos on 10-10-2022 Hemoglobin (Bld) [Mass/Vol] 14.4 g/dL 13.0-16.5 [facility] Blood lymphocytes/100 leukoc ytesOrdered By: Renard Burgos on 10-10-2022 Lymphocytes/100 WBC (Bld) 28.0 % 19-41 [facility] Blood monocytes/100 leukocyt esOrdered By: Renard Burgos on 10-10-2022 Monocytes/100 WBC (Bld) 10.8 % 0-10 [facility] Blood platelet mean volumeOr dered By: Renard Burgos on 10-10-2022 Platelet mean volume (Bld) [Entitic vol] 10.7 fL 6.2-12.0 [facility] Determination of erythrocyte mean corpuscular volume (MCV)Ordered By: Renard Burgos on 10-10-2022 MCV (RBC) [Entitic vol] 94.8 fL 80-94 [facility] Hematocrit Auto (Bld) [Volum e fraction]Ordered By: Renard Burgos on 10-10-2022 Hematocrit (Bld) [Volume fraction] 45.3 % 40-54 [facility] Laboratory - Hematology and Cell countsOrdered By: Renard Burgos on 10-10-2022 Erythrocyte distribution width (RBC) [Entitic vol] 43.8 fL 35.1-43.9 [facility] Erythrocyte distribution width (RBC) [Ratio] 12.6 % 11.6-14.6 [facility] Immature granulocytes/100 WBC (Bld) 0.400 % 0.0-0.9 [facility] Comment on above: IG% - Immature Granu locytes (promyelocytes, myelocytes and metamyelocytes) > 1% indicates that a LEFT SHIFT is Present. MCH (RBC) [Entitic mass] 30.1 pg 27.0-32.0 [facility] Nucleated RBC/100 WBC (Bld) [Ratio] 0 % 0-5 [facility] MCHC Auto (RBC) [Mass/Vol]Or dered By: Renard Burgos on 10-10-2022 MCHC (RBC) [Mass/Vol] 31.8 g/dL 32-36 [facility] Platelets bldOrdered By: Lyubov Burgos on 10-10-2022 Platelets (Bld) [#/Vol] 198 10*3/uL 150-450 [facility] Absolute lymphocyte countOrd ered By: Renard Burgos on 10-03-2022 Lymphocytes Auto (Unsp spec) [#/Vol] 2.00 10*3/uL 0.83-4.51 [facility] Basophil percentageOrdered B y: Renard Burgos on 10-03-2022 Basophils/100 WBC (Bld) 0.6 % 0-1 [facility] Bilirubin [Mass/Vol] 0.30 mg/dL 0.20-1.00 [facility] [place] Comment on above: For patients on eltr ombopag therapy, use of Dimension [place] TBIL is not recommended. Chloride [Moles/Vol] 109 mmol/L 98-107 [facility] Cholesterol [Mass/Vol] 129 mg/dL <200 [facility] Comment on above: <200 mg/dL Desirable 200-240 mg/dL Borderline >240 mg/dL High Risk Eosinophils/100 WBC (Bld) 0.8 % 0-5 [facility] Glucose [Mass/Vol] 82 mg/dL 74-106 [facility] Neutrophils (Bld) [#/Vol] 5.1 10*3/uL 2.0-7.7 [facility] Neutrophils/100 WBC (Bld) 63.2 % 47-70 [facility] Potassium [Moles/Vol] 3.9 mmol/L 3.5-5.1 [facility] Protein [Mass/Vol] 6.1 g/dL 6.4-8.2 [facility] Sodium [Moles/Vol] 140 mmol/L 136-145 [facility] Triglyceride [Mass/Vol] 209 mg/dL <199 [facility] Comment on above: The drugs N-Acetylcy steine and Metamizole may falsely depress this assay.Serum Triglycerides Reference Interval Normal <150 mg/dL Borderline high 150 - 199 mg/dL High 200 - 499 mg/dL Very High > or = 500 mg/dL WBC (Bld) [#/Vol] 8.0 10*3/uL 4.4-11.0 [facility] Blood erythrocytes count (nu mber/volume)Ordered By: Renard Burgos on 10-03-2022 RBC (Bld) [#/Vol] 4.58 10*6/uL 4.6-6.2 [facility] Blood hemoglobin measurement (mass/volume)Ordered By: Renard Burgos on 10-03-2022 Hemoglobin (Bld) [Mass/Vol] 13.9 g/dL 13.0-16.5 [facility] Blood lymphocytes/100 leukoc ytesOrdered By: Renard Burgos on 10-03-2022 Lymphocytes/100 WBC (Bld) 25.1 % 19-41 [facility] Blood monocytes/100 leukocyt esOrdered By: Renard Burgos on 10-03-2022 Monocytes/100 WBC (Bld) 10.0 % 0-10 [facility] Blood platelet mean volumeOr dered By: Renard Burgos on 10-03-2022 Platelet mean volume (Bld) [Entitic vol] 11.1 fL 6.2-12.0 [facility] Determination of erythrocyte mean corpuscular volume (MCV)Ordered By: Renard Burgos on 10-03-2022 MCV (RBC) [Entitic vol] 93.9 fL 80-94 [facility] Hematocrit Auto (Bld) [Volum e fraction]Ordered By: Renard Burgos on 10-03-2022 Hematocrit (Bld) [Volume fraction] 43.0 % 40-54 [facility] Laboratory - Chemistry and C hemistry - challengeOrdered By: Renard Burgos on 10-03-2022 ALP [Catalytic activity/Vol] 98 U/L 45-117 [facility] ALT [Catalytic activity/Vol] 19 U/L 16-61 [facility] CO2 [Moles/Vol] 31.0 mmol/L 21.0-32.0 [facility] Globulin (S) [Mass/Vol] 3.1 g/dL 2.2-4.2 [facility] Urea nitrogen/Creatinine [Mass ratio] 25.6 mg/mg 10-20 [facility] Laboratory - Hematology and Cell countsOrdered By: Renard Burgos on 10-03-2022 Erythrocyte distribution width (RBC) [Entitic vol] 43.8 fL 35.1-43.9 [facility] Erythrocyte distribution width (RBC) [Ratio] 12.7 % 11.6-14.6 [facility] Immature granulocytes/100 WBC (Bld) 0.300 % 0.0-0.9 [facility] Comment on above: IG% - Immature Granu locytes (promyelocytes, myelocytes and metamyelocytes) > 1% indicates that a LEFT SHIFT is Present. MCH (RBC) [Entitic mass] 30.3 pg 27.0-32.0 [facility] Nucleated RBC/100 WBC (Bld) [Ratio] 0 % 0-5 [facility] MCHC Auto (RBC) [Mass/Vol]Or dered By: Renard Burgos on 10-03-2022 MCHC (RBC) [Mass/Vol] 32.3 g/dL 32-36 [facility] No Panel InformationOrdered By: Renard Burgos on 10-03-2022 Estimated GFR (MDRD) Amer 165 mL/min >60 [facility] Comment on above: GFR Calc Estimated GFR (MDRD) Non-Af Amer 137 mL/min >60 [facility] Comment on above: Non- GFR Calc Platelets bldOrdered By: Lyubov Burgos on 10-03-2022 Platelets (Bld) [#/Vol] 204 10*3/uL 150-450 [facility] Serum or plasma albumin gordy urement (mass/volume)Ordered By: Renard Burgos on 10-03-2022 Albumin [Mass/Vol] 3.0 g/dL 3.2-5.0 [facility] Serum or plasma albumin/glob ulin mass ratioOrdered By: Renard Burgos on 10-03-2022 Albumin/Globulin [Mass ratio] 1.0 {ratio} 0.9-2.4 [facility] Serum or plasma calcium gordy urement (mass/volume)Ordered By: Renard Burgos on 10-03-2022 Calcium [Mass/Vol] 8.4 mg/dL 8.5-10.1 [facility] Serum or plasma cholesterol in HDL measurement (mass/volume)Ordered By: Renard Burgos on 10-03-2022 Cholesterol in HDL [Mass/Vol] 29 mg/dL >40 [facility] Comment on above: The drugs N-Acetylcy steine and Metamizole may falsely depress this assay. Reference Range HDL <40 mg/dL Low HDL Cholesterol HDL >or= 60 mg/dL High HDL Cholesterol Serum or plasma cholesterol in VLDL measurement (mass/volume)Ordered By: Renard Burgos on 10-03-2022 Cholesterol in VLDL [Mass/Vol] 42 mg/dL 5-40 [facility] Serum or plasma creatinine m easurement (mass/volume)Ordered By: Renard Burgos on 10-03-2022 Creatinine [Mass/Vol] 0.63 mg/dL 0.70-1.30 [facility] Comment on above: The validity of the calculated GFR & GFRAA in patients over 70 years has not been determined. Clinical correlation is essential. Serum or plasma low density lipoprotein (LDL) cholesterol measurement (mass/volume)Ordered By: Renard Burgos on 10-03-2022 Cholesterol in LDL [Mass/Vol] 58 mg/dL 0-130 [facility] Serum or plasma urea nitroge n measurement (mass/volume)Ordered By: Renard Burgos on 10-03-2022 Urea nitrogen [Mass/Vol] 16 mg/dL 7-18 [facility] Thin prep Papanicolaou smear with manual screeningOrdered By: Renard Burgos on 10-03-2022 Thin prep Papanicolaou smear with manual screening 13 U/L 15-37 [facility] Thin prep Papanicolaou smear with manual screening 0 5-15 [facility] Absolute lymphocyte countOrd ered By: Renard Burgos on 09-19-2022 Lymphocytes Auto (Unsp spec) [#/Vol] 1.59 10*3/uL 0.83-4.51 [facility] Basophil percentageOrdered B y: Renard Burgos on 09-19-2022 Basophils/100 WBC (Bld) 0.5 % 0-1 [facility] Eosinophils/100 WBC (Bld) 0.3 % 0-5 [facility] Neutrophils (Bld) [#/Vol] 7.4 10*3/uL 2.0-7.7 [facility] Neutrophils/100 WBC (Bld) 75.0 % 47-70 [facility] WBC (Bld) [#/Vol] 9.9 10*3/uL 4.4-11.0 [facility] Blood erythrocytes count (nu mber/volume)Ordered By: Renard Burgos on 09-19-2022 RBC (Bld) [#/Vol] 4.46 10*6/uL 4.6-6.2 [facility] Blood hemoglobin measurement (mass/volume)Ordered By: Renard Burgos on 09-19-2022 Hemoglobin (Bld) [Mass/Vol] 13.5 g/dL 13.0-16.5 [facility] Blood lymphocytes/100 leukoc ytesOrdered By: Renard Burgos on 09-19-2022 Lymphocytes/100 WBC (Bld) 16.1 % 19-41 [facility] Blood monocytes/100 leukocyt esOrdered By: Renard Burgos on 09-19-2022 Monocytes/100 WBC (Bld) 7.6 % 0-10 [facility] Blood platelet mean volumeOr dered By: Renard Burgos on 05-22-2023 Platelet mean volume (Bld) [Entitic vol] 10.8 fL 6.2-12.0 [facility] Determination of erythrocyte mean corpuscular volume (MCV)Ordered By: Renard Burgos on 09-19-2022 MCV (RBC) [Entitic vol] 92.2 fL 80-94 [facility] Hematocrit Auto (Bld) [Volum e fraction]Ordered By: Renard Burgos on 09-19-2022 Hematocrit (Bld) [Volume fraction] 41.1 % 40-54 [facility] Laboratory - Hematology and Cell countsOrdered By: Renard Burgos on 09-19-2022 Erythrocyte distribution width (RBC) [Entitic vol] 41.2 fL 35.1-43.9 [facility] Erythrocyte distribution width (RBC) [Ratio] 12.3 % 11.6-14.6 [facility] Immature granulocytes/100 WBC (Bld) 0.500 % 0.0-0.9 [facility] Comment on above: IG% - Immature Granu locytes (promyelocytes, myelocytes and metamyelocytes) > 1% indicates that a LEFT SHIFT is Present. MCH (RBC) [Entitic mass] 30.3 pg 27.0-32.0 [facility] Nucleated RBC/100 WBC (Bld) [Ratio] 0 % 0-5 [facility] MCHC Auto (RBC) [Mass/Vol]Or dered By: Renard Burgos on 09-19-2022 MCHC (RBC) [Mass/Vol] 32.8 g/dL 32-36 [facility] Platelets bldOrdered By: Lyubov Burgos on 09-19-2022 Platelets (Bld) [#/Vol] 245 10*3/uL 150-450 [facility] Absolute lymphocyte countOrd ered By: Renard Burgos on 09-12-2022 Lymphocytes Auto (Unsp spec) [#/Vol] 2.11 10*3/uL 0.83-4.51 [facility] Basophil percentageOrdered B y: Renard Burgos on 09-12-2022 Basophils/100 WBC (Bld) 0.5 % 0-1 [facility] Eosinophils/100 WBC (Bld) 0.7 % 0-5 [facility] Neutrophils (Bld) [#/Vol] 4.7 10*3/uL 2.0-7.7 [facility] Neutrophils/100 WBC (Bld) 63.6 % 47-70 [facility] WBC (Bld) [#/Vol] 7.3 10*3/uL 4.4-11.0 [facility] Blood erythrocytes count (nu mber/volume)Ordered By: Renard Burgos on 09-12-2022 RBC (Bld) [#/Vol] 4.40 10*6/uL 4.6-6.2 [facility] Blood hemoglobin measurement (mass/volume)Ordered By: Renard Burgos on 09-12-2022 Hemoglobin (Bld) [Mass/Vol] 13.5 g/dL 13.0-16.5 [facility] Blood lymphocytes/100 leukoc ytesOrdered By: Renard Burgos on 09-12-2022 Lymphocytes/100 WBC (Bld) 28.8 % 19-41 [facility] Blood monocytes/100 leukocyt esOrdered By: Renard Burgos on 09-12-2022 Monocytes/100 WBC (Bld) 6.1 % 0-10 [facility] Blood platelet mean volumeOr dered By: Renard Burgos on 09-12-2022 Platelet mean volume (Bld) [Entitic vol] 10.7 fL 6.2-12.0 [facility] Determination of erythrocyte mean corpuscular volume (MCV)Ordered By: Renard Burgos on 09-12-2022 MCV (RBC) [Entitic vol] 91.4 fL 80-94 [facility] Hematocrit Auto (Bld) [Volum e fraction]Ordered By: Renard Burgos on 09-12-2022 Hematocrit (Bld) [Volume fraction] 40.2 % 40-54 [facility] Laboratory - Hematology and Cell countsOrdered By: Renard Burgos on 09-12-2022 Erythrocyte distribution width (RBC) [Entitic vol] 41.3 fL 35.1-43.9 [facility] Erythrocyte distribution width (RBC) [Ratio] 12.5 % 11.6-14.6 [facility] Immature granulocytes/100 WBC (Bld) 0.300 % 0.0-0.9 [facility] Comment on above: IG% - Immature Granu locytes (promyelocytes, myelocytes and metamyelocytes) > 1% indicates that a LEFT SHIFT is Present. MCH (RBC) [Entitic mass] 30.7 pg 27.0-32.0 [facility] Nucleated RBC/100 WBC (Bld) [Ratio] 0 % 0-5 [facility] MCHC Auto (RBC) [Mass/Vol]Or dered By: Renard Burgos on 09-12-2022 MCHC (RBC) [Mass/Vol] 33.6 g/dL 32-36 [facility] Platelets bldOrdered By: Lyubov Burgos on 09-12-2022 Platelets (Bld) [#/Vol] 197 10*3/uL 150-450 [facility] Absolute lymphocyte countOrd ered By: Renard Burgos on 09-05-2022 Lymphocytes Auto (Unsp spec) [#/Vol] 1.94 10*3/uL 0.83-4.51 [facility] Basophil percentageOrdered B y: Renard Burgos on 09-05-2022 Basophils/100 WBC (Bld) 0.5 % 0-1 [facility] Cholesterol [Mass/Vol] 136 mg/dL <200 [facility] Comment on above: <200 mg/dL Desirable 200-240 mg/dL Borderline >240 mg/dL High Risk Eosinophils/100 WBC (Bld) 0.4 % 0-5 [facility] Neutrophils (Bld) [#/Vol] 5.4 10*3/uL 2.0-7.7 [facility] Neutrophils/100 WBC (Bld) 67.5 % 47-70 [facility] Triglyceride [Mass/Vol] 304 mg/dL <199 [facility] Comment on above: The drugs N-Acetylcy steine and Metamizole may falsely depress this assay.Serum Triglycerides Reference Interval Normal <150 mg/dL Borderline high 150 - 199 mg/dL High 200 - 499 mg/dL Very High > or = 500 mg/dL WBC (Bld) [#/Vol] 7.9 10*3/uL 4.4-11.0 [facility] Blood erythrocytes count (nu mber/volume)Ordered By: Renard Burgos on 09-05-2022 RBC (Bld) [#/Vol] 4.28 10*6/uL 4.6-6.2 [facility] Blood hemoglobin measurement (mass/volume)Ordered By: Renard Burgos on 09-05-2022 Hemoglobin (Bld) [Mass/Vol] 12.9 g/dL 13.0-16.5 [facility] Blood lymphocytes/100 leukoc ytesOrdered By: Renard Burgos on 09-05-2022 Lymphocytes/100 WBC (Bld) 24.5 % 19-41 [facility] Blood monocytes/100 leukocyt esOrdered By: Renard Burgos on 09-05-2022 Monocytes/100 WBC (Bld) 6.6 % 0-10 [facility] Blood platelet mean volumeOr dered By: Renard Burgos on 09-05-2022 Platelet mean volume (Bld) [Entitic vol] 10.7 fL 6.2-12.0 [facility] Determination of erythrocyte mean corpuscular volume (MCV)Ordered By: Renard Burgos on 09-05-2022 MCV (RBC) [Entitic vol] 91.4 fL 80-94 [facility] Hematocrit Auto (Bld) [Volum e fraction]Ordered By: Renard Burgos on 09-05-2022 Hematocrit (Bld) [Volume fraction] 39.1 % 40-54 [facility] Laboratory - Hematology and Cell countsOrdered By: Renard Burgos on 09-05-2022 Erythrocyte distribution width (RBC) [Entitic vol] 41.5 fL 35.1-43.9 [facility] Erythrocyte distribution width (RBC) [Ratio] 12.6 % 11.6-14.6 [facility] Immature granulocytes/100 WBC (Bld) 0.500 % 0.0-0.9 [facility] Comment on above: IG% - Immature Granu locytes (promyelocytes, myelocytes and metamyelocytes) > 1% indicates that a LEFT SHIFT is Present. MCH (RBC) [Entitic mass] 30.1 pg 27.0-32.0 [facility] Nucleated RBC/100 WBC (Bld) [Ratio] 0 % 0-5 [facility] MCHC Auto (RBC) [Mass/Vol]Or dered By: Renard Burgos on 09-05-2022 MCHC (RBC) [Mass/Vol] 33.0 g/dL 32-36 [facility] Platelets bldOrdered By: Lyubov Burgos on 09-05-2022 Platelets (Bld) [#/Vol] 200 10*3/uL 150-450 [facility] Serum or plasma cholesterol in HDL measurement (mass/volume)Ordered By: Renard Bugros on 09-05-2022 Cholesterol in HDL [Mass/Vol] 24 mg/dL >40 [facility] Comment on above: The drugs N-Acetylcy steine and Metamizole may falsely depress this assay. Reference Range HDL <40 mg/dL Low HDL Cholesterol HDL >or= 60 mg/dL High HDL Cholesterol Serum or plasma cholesterol in VLDL measurement (mass/volume)Ordered By: Renard Burgos on 09-05-2022 Cholesterol in VLDL [Mass/Vol] 61 mg/dL 5-40 [facility] Serum or plasma low density lipoprotein (LDL) cholesterol measurement (mass/volume)Ordered By: Renard Burgos on 09-05-2022 Cholesterol in LDL [Mass/Vol] 51 mg/dL 0-130 [facility] Absolute lymphocyte countOrd ered By: Renard Burgos on 08-29-2022 Lymphocytes Auto (Unsp spec) [#/Vol] 1.91 10*3/uL 0.83-4.51 [facility] Basophil percentageOrdered B y: Renard Burgos on 08-29-2022 Basophils/100 WBC (Bld) 0.4 % 0-1 [facility] Eosinophils/100 WBC (Bld) 0.4 % 0-5 [facility] Neutrophils (Bld) [#/Vol] 4.8 10*3/uL 2.0-7.7 [facility] Neutrophils/100 WBC (Bld) 66.0 % 47-70 [facility] WBC (Bld) [#/Vol] 7.3 10*3/uL 4.4-11.0 [facility] Blood erythrocytes count (nu mber/volume)Ordered By: Renard Burgos on 08-29-2022 RBC (Bld) [#/Vol] 4.43 10*6/uL 4.6-6.2 [facility] Blood hemoglobin measurement (mass/volume)Ordered By: Renard Burgos on 08-29-2022 Hemoglobin (Bld) [Mass/Vol] 13.6 g/dL 13.0-16.5 [facility] Blood lymphocytes/100 leukoc ytesOrdered By: Renard Burgos on 08-29-2022 Lymphocytes/100 WBC (Bld) 26.2 % 19-41 [facility] Blood monocytes/100 leukocyt esOrdered By: Renard Burgos on 08-29-2022 Monocytes/100 WBC (Bld) 6.6 % 0-10 [facility] Blood platelet mean volumeOr dered By: Renard Burgos on 08-29-2022 Platelet mean volume (Bld) [Entitic vol] 11.0 fL 6.2-12.0 [facility] Determination of erythrocyte mean corpuscular volume (MCV)Ordered By: Renard Burgos on 08-29-2022 MCV (RBC) [Entitic vol] 92.1 fL 80-94 [facility] Hematocrit Auto (Bld) [Volum e fraction]Ordered By: Renard Burgos on 08-29-2022 Hematocrit (Bld) [Volume fraction] 40.8 % 40-54 [facility] Laboratory - Hematology and Cell countsOrdered By: Renard Burgos on 08-29-2022 Erythrocyte distribution width (RBC) [Entitic vol] 42.0 fL 35.1-43.9 [facility] Erythrocyte distribution width (RBC) [Ratio] 12.4 % 11.6-14.6 [facility] Immature granulocytes/100 WBC (Bld) 0.400 % 0.0-0.9 [facility] Comment on above: IG% - Immature Granu locytes (promyelocytes, myelocytes and metamyelocytes) > 1% indicates that a LEFT SHIFT is Present. MCH (RBC) [Entitic mass] 30.7 pg 27.0-32.0 [facility] Nucleated RBC/100 WBC (Bld) [Ratio] 0 % 0-5 [facility] MCHC Auto (RBC) [Mass/Vol]Or dered By: Renard Burgos on 08-29-2022 MCHC (RBC) [Mass/Vol] 33.3 g/dL 32-36 [facility] Platelets bldOrdered By: Lyubov Burgos on 08-29-2022 Platelets (Bld) [#/Vol] 195 10*3/uL 150-450 [facility] Absolute lymphocyte countOrd ered By: Renard Burgos on 08-22-2022 Lymphocytes Auto (Unsp spec) [#/Vol] 1.86 10*3/uL 0.83-4.51 [facility] Basophil percentageOrdered B y: Renard Burgos on 08-22-2022 Basophils/100 WBC (Bld) 0.4 % 0-1 [facility] Eosinophils/100 WBC (Bld) 0.4 % 0-5 [facility] Neutrophils (Bld) [#/Vol] 6.5 10*3/uL 2.0-7.7 [facility] [facility] Neutrophils/100 WBC (Bld) 70.5 % 47-70 [facility] WBC (Bld) [#/Vol] 9.3 10*3/uL 4.4-11.0 [facility] Blood erythrocytes count (nu mber/volume)Ordered By: Renard Burgos on 08-22-2022 RBC (Bld) [#/Vol] 4.55 10*6/uL 4.6-6.2 [facility] Blood hemoglobin measurement (mass/volume)Ordered By: Renard Burgos on 08-22-2022 Hemoglobin (Bld) [Mass/Vol] 14.1 g/dL 13.0-16.5 [facility] Blood lymphocytes/100 leukoc ytesOrdered By: Renard Burgos on 08-22-2022 Lymphocytes/100 WBC (Bld) 20.1 % 19-41 [facility] Blood monocytes/100 leukocyt esOrdered By: Renard Burgos on 08-22-2022 Monocytes/100 WBC (Bld) 8.3 % 0-10 [facility] Blood platelet mean volumeOr dered By: Renard Burgos on 08-22-2022 Platelet mean volume (Bld) [Entitic vol] 10.8 fL 6.2-12.0 [facility] Determination of erythrocyte mean corpuscular volume (MCV)Ordered By: Renard Burgos on 08-22-2022 MCV (RBC) [Entitic vol] 91.9 fL 80-94 [facility] Hematocrit Auto (Bld) [Volum e fraction]Ordered By: Renard Burgos on 08-22-2022 Hematocrit (Bld) [Volume fraction] 41.8 % 40-54 [facility] Laboratory - Hematology and Cell countsOrdered By: Renard Burgos on 08-22-2022 Erythrocyte distribution width (RBC) [Entitic vol] 42.5 fL 35.1-43.9 [facility] Erythrocyte distribution width (RBC) [Ratio] 12.6 % 11.6-14.6 [facility] Immature granulocytes/100 WBC (Bld) 0.300 % 0.0-0.9 [facility] Comment on above: IG% - Immature Granu locytes (promyelocytes, myelocytes and metamyelocytes) > 1% indicates that a LEFT SHIFT is Present. MCH (RBC) [Entitic mass] 31.0 pg 27.0-32.0 [facility] Nucleated RBC/100 WBC (Bld) [Ratio] 0 % 0-5 [facility] MCHC Auto (RBC) [Mass/Vol]Or dered By: Renard Burgos on 08-22-2022 MCHC (RBC) [Mass/Vol] 33.7 g/dL 32-36 [facility] Platelets bldOrdered By: Lyubov Burgos on 08-22-2022 Platelets (Bld) [#/Vol] 197 10*3/uL 150-450 [facility] Absolute lymphocyte countOrd ered By: Renard Burgos on 08-15-2022 Lymphocytes Auto (Unsp spec) [#/Vol] 1.88 10*3/uL 0.83-4.51 [facility] Basophil percentageOrdered B y: Renard Burgos on 08-15-2022 Basophils/100 WBC (Bld) 0.5 % 0-1 [facility] Eosinophils/100 WBC (Bld) 0.5 % 0-5 [facility] Neutrophils (Bld) [#/Vol] 5.1 10*3/uL 2.0-7.7 [facility] Neutrophils/100 WBC (Bld) 65.0 % 47-70 [facility] WBC (Bld) [#/Vol] 7.9 10*3/uL 4.4-11.0 [facility] Blood erythrocytes count (nu mber/volume)Ordered By: Renard Burgos on 08-15-2022 RBC (Bld) [#/Vol] 4.48 10*6/uL 4.6-6.2 [facility] Blood hemoglobin measurement (mass/volume)Ordered By: Renard Burgos on 08-15-2022 Hemoglobin (Bld) [Mass/Vol] 13.7 g/dL 13.0-16.5 [facility] Blood lymphocytes/100 leukoc ytesOrdered By: Renard Burgos on 08-15-2022 Lymphocytes/100 WBC (Bld) 23.9 % 19-41 [facility] Blood monocytes/100 leukocyt esOrdered By: Renard Burgos on 08-15-2022 Monocytes/100 WBC (Bld) 9.8 % 0-10 [facility] Blood platelet mean volumeOr dered By: Renard Burgos on 08-15-2022 Platelet mean volume (Bld) [Entitic vol] 10.7 fL 6.2-12.0 [facility] Determination of erythrocyte mean corpuscular volume (MCV)Ordered By: Renard Burgos on 08-15-2022 MCV (RBC) [Entitic vol] 91.1 fL 80-94 [facility] Hematocrit Auto (Bld) [Volum e fraction]Ordered By: Renard Burgos on 08-15-2022 Hematocrit (Bld) [Volume fraction] 40.8 % 40-54 [facility] Laboratory - Hematology and Cell countsOrdered By: Renard Burgos on 08-15-2022 Erythrocyte distribution width (RBC) [Entitic vol] 41.0 fL 35.1-43.9 [facility] Erythrocyte distribution width (RBC) [Ratio] 12.4 % 11.6-14.6 [facility] Immature granulocytes/100 WBC (Bld) 0.300 % 0.0-0.9 [facility] Comment on above: IG% - Immature Granu locytes (promyelocytes, myelocytes and metamyelocytes) > 1% indicates that a LEFT SHIFT is Present. MCH (RBC) [Entitic mass] 30.6 pg 27.0-32.0 [facility] Nucleated RBC/100 WBC (Bld) [Ratio] 0 % 0-5 [facility] MCHC Auto (RBC) [Mass/Vol]Or dered By: Renard Burgos on 08-15-2022 MCHC (RBC) [Mass/Vol] 33.6 g/dL 32-36 [facility] Platelets bldOrdered By: Lyubov medel Loretta on 08-15-2022 Platelets (Bld) [#/Vol] 212 10*3/uL 150-450 [facility] Absolute lymphocyte countOrd ered By: Renard Burgos on 08-08-2022 Lymphocytes Auto (Unsp spec) [#/Vol] 1.96 10*3/uL 0.83-4.51 [facility] Basophil percentageOrdered B y: Renard Burgos on 08-08-2022 Basophils/100 WBC (Bld) 0.5 % 0-1 [facility] Eosinophils/100 WBC (Bld) 0.5 % 0-5 [facility] Neutrophils (Bld) [#/Vol] 4.7 10*3/uL 2.0-7.7 [facility] Neutrophils/100 WBC (Bld) 64.1 % 47-70 [facility] WBC (Bld) [#/Vol] 7.4 10*3/uL 4.4-11.0 [facility] Blood erythrocytes count (nu mber/volume)Ordered By: Renard Burgos on 08-08-2022 RBC (Bld) [#/Vol] 4.44 10*6/uL 4.6-6.2 [facility] Blood hemoglobin measurement (mass/volume)Ordered By: Renard Burgos on 08-08-2022 Hemoglobin (Bld) [Mass/Vol] 13.6 g/dL 13.0-16.5 [facility] Blood lymphocytes/100 leukoc ytesOrdered By: Renard Burgos on 08-08-2022 Lymphocytes/100 WBC (Bld) 26.5 % 19-41 [facility] Blood monocytes/100 leukocyt esOrdered By: Renard Burgos on 08-08-2022 Monocytes/100 WBC (Bld) 8.1 % 0-10 [facility] Blood platelet mean volumeOr dered By: Renard Burgos on 08-08-2022 Platelet mean volume (Bld) [Entitic vol] 10.8 fL 6.2-12.0 [facility] Determination of erythrocyte mean corpuscular volume (MCV)Ordered By: Renard Burgos on 08-08-2022 MCV (RBC) [Entitic vol] 91.7 fL 80-94 [facility] Hematocrit Auto (Bld) [Volum e fraction]Ordered By: Renard Burgos on 08-08-2022 Hematocrit (Bld) [Volume fraction] 40.7 % 40-54 [facility] Laboratory - Hematology and Cell countsOrdered By: Renard Burgos on 08-08-2022 Erythrocyte distribution width (RBC) [Entitic vol] 42.7 fL 35.1-43.9 [facility] Erythrocyte distribution width (RBC) [Ratio] 12.6 % 11.6-14.6 [facility] Immature granulocytes/100 WBC (Bld) 0.300 % 0.0-0.9 [facility] Comment on above: IG% - Immature Granu locytes (promyelocytes, myelocytes and metamyelocytes) > 1% indicates that a LEFT SHIFT is Present. MCH (RBC) [Entitic mass] 30.6 pg 27.0-32.0 [facility] Nucleated RBC/100 WBC (Bld) [Ratio] 0 % 0-5 [facility] MCHC Auto (RBC) [Mass/Vol]Or dered By: Renard Burgos on 08-08-2022 MCHC (RBC) [Mass/Vol] 33.4 g/dL 32-36 [facility] Platelets bldOrdered By: Lyubov Burgos on 08-08-2022 Platelets (Bld) [#/Vol] 187 10*3/uL 150-450 [facility] Absolute lymphocyte countOrd ered By: Renard Burgos on 08-01-2022 Lymphocytes Auto (Unsp spec) [#/Vol] 2.09 10*3/uL 0.83-4.51 [facility] Basophil percentageOrdered B y: Renard Burgos on 08-01-2022 Basophils/100 WBC (Bld) 0.4 % 0-1 [facility] Eosinophils/100 WBC (Bld) 0.4 % 0-5 [facility] Neutrophils (Bld) [#/Vol] 6.6 10*3/uL 2.0-7.7 [facility] Neutrophils/100 WBC (Bld) 69.1 % 47-70 [facility] WBC (Bld) [#/Vol] 9.5 10*3/uL 4.4-11.0 [facility] Blood erythrocytes count (nu mber/volume)Ordered By: Renard Burgos on 08-01-2022 RBC (Bld) [#/Vol] 4.48 10*6/uL 4.6-6.2 [facility] Blood hemoglobin measurement (mass/volume)Ordered By: Renard Burgos on 08-01-2022 Hemoglobin (Bld) [Mass/Vol] 13.9 g/dL 13.0-16.5 [facility] Blood lymphocytes/100 leukoc ytesOrdered By: Renard Burgos on 08-01-2022 Lymphocytes/100 WBC (Bld) 21.9 % 19-41 [facility] Blood monocytes/100 leukocyt esOrdered By: Renard Burgos on 08-01-2022 Monocytes/100 WBC (Bld) 7.9 % 0-10 [facility] Blood platelet mean volumeOr dered By: Renard Burgos on 08-01-2022 Platelet mean volume (Bld) [Entitic vol] 11.0 fL 6.2-12.0 [facility] Determination of erythrocyte mean corpuscular volume (MCV)Ordered By: Renard Burgos on 08-01-2022 MCV (RBC) [Entitic vol] 91.5 fL 80-94 [facility] Hematocrit Auto (Bld) [Volum e fraction]Ordered By: Renard Burgos on 08-01-2022 Hematocrit (Bld) [Volume fraction] 41.0 % 40-54 [facility] Laboratory - Hematology and Cell countsOrdered By: Renard Burgos on 08-01-2022 Erythrocyte distribution width (RBC) [Entitic vol] 41.6 fL 35.1-43.9 [facility] Erythrocyte distribution width (RBC) [Ratio] 12.5 % 11.6-14.6 [facility] Immature granulocytes/100 WBC (Bld) 0.300 % 0.0-0.9 [facility] Comment on above: IG% - Immature Granu locytes (promyelocytes, myelocytes and metamyelocytes) > 1% indicates that a LEFT SHIFT is Present. MCH (RBC) [Entitic mass] 31.0 pg 27.0-32.0 [facility] Nucleated RBC/100 WBC (Bld) [Ratio] 0 % 0-5 [facility] MCHC Auto (RBC) [Mass/Vol]Or dered By: Renard Burgos on 08-01-2022 MCHC (RBC) [Mass/Vol] 33.9 g/dL 32-36 [facility] Platelets bldOrdered By: Lyubov Burgos on 08-01-2022 Platelets (Bld) [#/Vol] 208 10*3/uL 150-450 [facility] Absolute lymphocyte countOrd ered By: Renard Burgos on 07-25-2022 Lymphocytes Auto (Unsp spec) [#/Vol] 2.16 10*3/uL 0.83-4.51 [facility] Basophil percentageOrdered B y: Renard Burgos on 07-25-2022 Basophils/100 WBC (Bld) 0.6 % 0-1 [facility] Eosinophils/100 WBC (Bld) 0.6 % 0-5 [facility] Neutrophils (Bld) [#/Vol] 5.4 10*3/uL 2.0-7.7 [facility] Neutrophils/100 WBC (Bld) 64.5 % 47-70 [facility] WBC (Bld) [#/Vol] 8.4 10*3/uL 4.4-11.0 [facility] Blood erythrocytes count (nu mber/volume)Ordered By: Renard Burgos on 07-25-2022 RBC (Bld) [#/Vol] 4.45 10*6/uL 4.6-6.2 [facility] Blood hemoglobin measurement (mass/volume)Ordered By: Renard Burgos on 07-25-2022 Hemoglobin (Bld) [Mass/Vol] 13.4 g/dL 13.0-16.5 [facility] Blood lymphocytes/100 leukoc ytesOrdered By: Renard Burgos on 07-25-2022 Lymphocytes/100 WBC (Bld) 25.7 % 19-41 [facility] Blood monocytes/100 leukocyt esOrdered By: Renard Burgos on 07-25-2022 Monocytes/100 WBC (Bld) 8.4 % 0-10 [facility] Blood platelet mean volumeOr dered By: Renard Burgos on 07-25-2022 Platelet mean volume (Bld) [Entitic vol] 11.0 fL 6.2-12.0 [facility] Determination of erythrocyte mean corpuscular volume (MCV)Ordered By: Renard Bugros on 07-25-2022 MCV (RBC) [Entitic vol] 92.8 fL 80-94 [facility] Hematocrit Auto (Bld) [Volum e fraction]Ordered By: Renard Burgos on 07-25-2022 Hematocrit (Bld) [Volume fraction] 41.3 % 40-54 [facility] Laboratory - Hematology and Cell countsOrdered By: Renard Burgos on 07-25-2022 Erythrocyte distribution width (RBC) [Entitic vol] 42.5 fL 35.1-43.9 [facility] Erythrocyte distribution width (RBC) [Ratio] 12.5 % 11.6-14.6 [facility] Immature granulocytes/100 WBC (Bld) 0.200 % 0.0-0.9 [facility] Comment on above: IG% - Immature Granu locytes (promyelocytes, myelocytes and metamyelocytes) > 1% indicates that a LEFT SHIFT is Present. MCH (RBC) [Entitic mass] 30.1 pg 27.0-32.0 [facility] Nucleated RBC/100 WBC (Bld) [Ratio] 0 % 0-5 [facility] MCHC Auto (RBC) [Mass/Vol]Or dered By: Renard Burgos on 07-25-2022 MCHC (RBC) [Mass/Vol] 32.4 g/dL 32-36 [facility] Platelets bldOrdered By: Lyubov Burgos on 07-25-2022 Platelets (Bld) [#/Vol] 200 10*3/uL 150-450 [facility] No Panel InformationOrdered By: Renard Burgos on 07-19-2022 Vitamin D 25-Hydroxy 34.2 ng/mL [facility] [place] Comment on above: Vitamin D 25(OH) Sta tus Range Deficiency <20 ng/mL (50nmol/L) Insufficiency 20 - 30 ng/mL (50 - 75 nmol/L) Sufficiency 30 - 100 ng/mL (75 - 250 nmol/L) Toxicity >100 ng/mL (>250 nmol/L) Absolute lymphocyte countOrd ered By: Renard Burgos on 07-18-2022 Lymphocytes Auto (Unsp spec) [#/Vol] 2.48 10*3/uL 0.83-4.51 [facility] Basophil percentageOrdered B y: Renard Burgos on 07-18-2022 Basophils/100 WBC (Bld) 0.5 % 0-1 [facility] Eosinophils/100 WBC (Bld) 0.6 % 0-5 [facility] Neutrophils (Bld) [#/Vol] 5.9 10*3/uL 2.0-7.7 [facility] Neutrophils/100 WBC (Bld) 61.6 % 47-70 [facility] WBC (Bld) [#/Vol] 9.6 10*3/uL 4.4-11.0 [facility] Blood erythrocytes count (nu mber/volume)Ordered By: Renard Burgos on 07-18-2022 RBC (Bld) [#/Vol] 4.56 10*6/uL 4.6-6.2 [facility] Blood hemoglobin measurement (mass/volume)Ordered By: Renard Burgos on 07-18-2022 Hemoglobin (Bld) [Mass/Vol] 13.9 g/dL 13.0-16.5 [facility] Blood lymphocytes/100 leukoc ytesOrdered By: Renard Burgos on 07-18-2022 Lymphocytes/100 WBC (Bld) 25.9 % 19-41 [facility] Blood monocytes/100 leukocyt esOrdered By: Renard Burgos on 07-18-2022 Monocytes/100 WBC (Bld) 11.0 % 0-10 [facility] Blood platelet mean volumeOr dered By: Renard Burgos on 07-18-2022 Platelet mean volume (Bld) [Entitic vol] 11.3 fL 6.2-12.0 [facility] Determination of erythrocyte mean corpuscular volume (MCV)Ordered By: Renard Burgos on 07-18-2022 MCV (RBC) [Entitic vol] 93.9 fL 80-94 [facility] Hematocrit Auto (Bld) [Volum e fraction]Ordered By: Renard Burgos on 07-18-2022 Hematocrit (Bld) [Volume fraction] 42.8 % 40-54 [facility] Laboratory - Hematology and Cell countsOrdered By: Renard Burgos on 07-18-2022 Erythrocyte distribution width (RBC) [Entitic vol] 44.0 fL 35.1-43.9 [facility] Erythrocyte distribution width (RBC) [Ratio] 12.8 % 11.6-14.6 [facility] Immature granulocytes/100 WBC (Bld) 0.400 % 0.0-0.9 [facility] Comment on above: IG% - Immature Granu locytes (promyelocytes, myelocytes and metamyelocytes) > 1% indicates that a LEFT SHIFT is Present. MCH (RBC) [Entitic mass] 30.5 pg 27.0-32.0 [facility] Nucleated RBC/100 WBC (Bld) [Ratio] 0 % 0-5 [facility] MCHC Auto (RBC) [Mass/Vol]Or dered By: Renard Burgos on 07-18-2022 MCHC (RBC) [Mass/Vol] 32.5 g/dL 32-36 [facility] Platelets bldOrdered By: Lyubov Burgos on 07-18-2022 Platelets (Bld) [#/Vol] 207 10*3/uL 150-450 [facility] Absolute lymphocyte countOrd ered By: Renard Burogs on 07-11-2022 Lymphocytes Auto (Unsp spec) [#/Vol] 2.37 10*3/uL 0.83-4.51 [facility] Basophil percentageOrdered B y: Renard Burgos on 07-11-2022 Basophils/100 WBC (Bld) 0.6 % 0-1 [facility] Eosinophils/100 WBC (Bld) 0.5 % 0-5 [facility] Neutrophils (Bld) [#/Vol] 5.3 10*3/uL 2.0-7.7 [facility] Neutrophils/100 WBC (Bld) 61.8 % 47-70 [facility] WBC (Bld) [#/Vol] 8.5 10*3/uL 4.4-11.0 [facility] Blood erythrocytes count (nu mber/volume)Ordered By: Renard Burgos on 07-11-2022 RBC (Bld) [#/Vol] 4.83 10*6/uL 4.6-6.2 [facility] Blood hemoglobin measurement (mass/volume)Ordered By: Renard Burgos on 07-11-2022 Hemoglobin (Bld) [Mass/Vol] 14.7 g/dL 13.0-16.5 [facility] Blood lymphocytes/100 leukoc ytesOrdered By: Renard Burgos on 07-11-2022 Lymphocytes/100 WBC (Bld) 27.8 % 19-41 [facility] Blood monocytes/100 leukocyt esOrdered By: Renard Burgos on 07-11-2022 Monocytes/100 WBC (Bld) 8.8 % 0-10 [facility] Blood platelet mean volumeOr dered By: Renard Burgos on 07-11-2022 Platelet mean volume (Bld) [Entitic vol] 10.6 fL 6.2-12.0 [facility] Determination of erythrocyte mean corpuscular volume (MCV)Ordered By: Renard Burgos on 07-11-2022 MCV (RBC) [Entitic vol] 90.7 fL 80-94 [facility] Hematocrit Auto (Bld) [Volum e fraction]Ordered By: Renard Burgos on 07-11-2022 Hematocrit (Bld) [Volume fraction] 43.8 % 40-54 [facility] Laboratory - Hematology and Cell countsOrdered By: Renard Burgos on 07-11-2022 Erythrocyte distribution width (RBC) [Entitic vol] 41.2 fL 35.1-43.9 [facility] Erythrocyte distribution width (RBC) [Ratio] 12.7 % 11.6-14.6 [facility] Immature granulocytes/100 WBC (Bld) 0.500 % 0.0-0.9 [facility] Comment on above: IG% - Immature Granu locytes (promyelocytes, myelocytes and metamyelocytes) > 1% indicates that a LEFT SHIFT is Present. MCH (RBC) [Entitic mass] 30.4 pg 27.0-32.0 [facility] Nucleated RBC/100 WBC (Bld) [Ratio] 0 % 0-5 [facility] MCHC Auto (RBC) [Mass/Vol]Or dered By: Renard Burgos on 07-11-2022 MCHC (RBC) [Mass/Vol] 33.6 g/dL 32-36 [facility] Platelets bldOrdered By: [facility] lizy Loretta on 07-11-2022 Platelets (Bld) [#/Vol] 207 10*3/uL 150-450 [facility] Absolute lymphocyte countOrd ered By: Renard Burgos on 07-04-2022 Lymphocytes Auto (Unsp spec) [#/Vol] 1.87 10*3/uL 0.83-4.51 [facility] Basophil percentageOrdered B y: Renard Burgos on 07-04-2022 Basophils/100 WBC (Bld) 0.4 % 0-1 [facility] Eosinophils/100 WBC (Bld) 0.5 % 0-5 [facility] Neutrophils (Bld) [#/Vol] 7.5 10*3/uL 2.0-7.7 [facility] Neutrophils/100 WBC (Bld) 72.8 % 47-70 [facility] WBC (Bld) [#/Vol] 10.3 10*3/uL 4.4-11.0 [facility] Blood erythrocytes count (nu mber/volume)Ordered By: Renard Burgos on 07-04-2022 RBC (Bld) [#/Vol] 4.45 10*6/uL 4.6-6.2 [facility] Blood hemoglobin measurement (mass/volume)Ordered By: Renard Burgos on 07-04-2022 Hemoglobin (Bld) [Mass/Vol] 13.5 g/dL 13.0-16.5 [facility] Blood lymphocytes/100 leukoc ytesOrdered By: Renard Burgos on 07-04-2022 Lymphocytes/100 WBC (Bld) 18.1 % 19-41 [facility] Blood monocytes/100 leukocyt esOrdered By: Renard Burgos on 07-04-2022 Monocytes/100 WBC (Bld) 7.7 % 0-10 [facility] Blood platelet mean volumeOr dered By: Renard Burgos on 07-04-2022 Platelet mean volume (Bld) [Entitic vol] 11.3 fL 6.2-12.0 [facility] Determination of erythrocyte mean corpuscular volume (MCV)Ordered By: Renard Burgos on 07-04-2022 MCV (RBC) [Entitic vol] 93.0 fL 80-94 [facility] Hematocrit Auto (Bld) [Volum e fraction]Ordered By: Renard Burgos on 07-04-2022 Hematocrit (Bld) [Volume fraction] 41.4 % 40-54 [facility] Laboratory - Hematology and Cell countsOrdered By: Renard Burgos on 07-04-2022 Erythrocyte distribution width (RBC) [Entitic vol] 43.0 fL 35.1-43.9 [facility] Erythrocyte distribution width (RBC) [Ratio] 12.5 % 11.6-14.6 [facility] Immature granulocytes/100 WBC (Bld) 0.500 % 0.0-0.9 [facility] Comment on above: IG% - Immature Granu locytes (promyelocytes, myelocytes and metamyelocytes) > 1% indicates that a LEFT SHIFT is Present. MCH (RBC) [Entitic mass] 30.3 pg 27.0-32.0 [facility] Nucleated RBC/100 WBC (Bld) [Ratio] 0 % 0-5 [facility] MCHC Auto (RBC) [Mass/Vol]Or dered By: Renard Burgos on 07-04-2022 MCHC (RBC) [Mass/Vol] 32.6 g/dL 32-36 [facility] Platelets bldOrdered By: Lyubov Burgos on 07-04-2022 Platelets (Bld) [#/Vol] 211 10*3/uL 150-450 [facility] Absolute lymphocyte countOrd ered By: Renard Burgos on 06-27-2022 Lymphocytes Auto (Unsp spec) [#/Vol] 1.83 10*3/uL 0.83-4.51 [facility] Basophil percentageOrdered B y: Renard Burgos on 06-27-2022 Basophils/100 WBC (Bld) 0.4 % 0-1 [facility] Eosinophils/100 WBC (Bld) 0.5 % 0-5 [facility] Neutrophils (Bld) [#/Vol] 5.0 10*3/uL 2.0-7.7 [facility] Neutrophils/100 WBC (Bld) 67.6 % 47-70 [facility] WBC (Bld) [#/Vol] 7.4 10*3/uL 4.4-11.0 [facility] Blood erythrocytes count (nu mber/volume)Ordered By: Renard Burgos on 06-27-2022 RBC (Bld) [#/Vol] 4.52 10*6/uL 4.6-6.2 [facility] Blood hemoglobin measurement (mass/volume)Ordered By: Renard Burgos on 06-27-2022 Hemoglobin (Bld) [Mass/Vol] 13.9 g/dL 13.0-16.5 [facility] Blood lymphocytes/100 leukoc ytesOrdered By: Renard Burgos on 06-27-2022 Lymphocytes/100 WBC (Bld) 24.7 % 19-41 [facility] Blood monocytes/100 leukocyt esOrdered By: Renard Burgos on 06-27-2022 Monocytes/100 WBC (Bld) 6.4 % 0-10 [facility] Blood platelet mean volumeOr dered By: Renard Burgos on 06-27-2022 Platelet mean volume (Bld) [Entitic vol] 10.7 fL 6.2-12.0 [facility] Determination of erythrocyte mean corpuscular volume (MCV)Ordered By: Renard Burgos on 06-27-2022 MCV (RBC) [Entitic vol] 91.2 fL 80-94 [facility] Hematocrit Auto (Bld) [Volum e fraction]Ordered By: Renard Burgos on 06-27-2022 Hematocrit (Bld) [Volume fraction] 41.2 % 40-54 [facility] Laboratory - Hematology and Cell countsOrdered By: Renard Burgos on 06-27-2022 Erythrocyte distribution width (RBC) [Entitic vol] 41.9 fL 35.1-43.9 [facility] Erythrocyte distribution width (RBC) [Ratio] 12.7 % 11.6-14.6 [facility] Immature granulocytes/100 WBC (Bld) 0.400 % 0.0-0.9 [facility] Comment on above: IG% - Immature Granu locytes (promyelocytes, myelocytes and metamyelocytes) > 1% indicates that a LEFT SHIFT is Present. MCH (RBC) [Entitic mass] 30.8 pg 27.0-32.0 [facility] Nucleated RBC/100 WBC (Bld) [Ratio] 0 % 0-5 [facility] MCHC Auto (RBC) [Mass/Vol]Or dered By: Renard Burgos on 06-27-2022 MCHC (RBC) [Mass/Vol] 33.7 g/dL 32-36 [facility] Platelets bldOrdered By: Lyubov Burgos on 06-27-2022 Platelets (Bld) [#/Vol] 200 10*3/uL 150-450 [facility] Absolute lymphocyte countOrd ered By: Renard Burgos on 06-20-2022 Lymphocytes Auto (Unsp spec) [#/Vol] 1.57 10*3/uL 0.83-4.51 [facility] Basophil percentageOrdered B y: Renard Burgos on 06-20-2022 Basophils/100 WBC (Bld) 0.2 % 0-1 [facility] Eosinophils/100 WBC (Bld) 0.2 % 0-5 [facility] Neutrophils (Bld) [#/Vol] 6.5 10*3/uL 2.0-7.7 [facility] Neutrophils/100 WBC (Bld) 74.5 % 47-70 [facility] WBC (Bld) [#/Vol] 8.8 10*3/uL 4.4-11.0 [facility] Blood erythrocytes count (nu mber/volume)Ordered By: Renard Burgos on 06-20-2022 RBC (Bld) [#/Vol] 4.79 10*6/uL 4.6-6.2 [facility] Blood hemoglobin measurement (mass/volume)Ordered By: Renard Burgos on 06-20-2022 Hemoglobin (Bld) [Mass/Vol] 14.6 g/dL 13.0-16.5 [facility] Blood lymphocytes/100 leukoc ytesOrdered By: Renard Burgos on 06-20-2022 Lymphocytes/100 WBC (Bld) 17.8 % 19-41 [facility] Blood monocytes/100 leukocyt esOrdered By: Renard Burgos on 06-20-2022 Monocytes/100 WBC (Bld) 7.0 % 0-10 [facility] Blood platelet mean volumeOr dered By: Renard Burgos on 06-20-2022 Platelet mean volume (Bld) [Entitic vol] 11.1 fL 6.2-12.0 [facility] Determination of erythrocyte mean corpuscular volume (MCV)Ordered By: Renard Burgos on 06-20-2022 MCV (RBC) [Entitic vol] 92.1 fL 80-94 [facility] Hematocrit Auto (Bld) [Volum e fraction]Ordered By: Renard Burgos on 06-20-2022 Hematocrit (Bld) [Volume fraction] 44.1 % 40-54 [facility] Laboratory - Hematology and Cell countsOrdered By: Renard Burgos on 06-20-2022 Erythrocyte distribution width (RBC) [Entitic vol] 42.4 fL 35.1-43.9 [facility] Erythrocyte distribution width (RBC) [Ratio] 12.6 % 11.6-14.6 [facility] Immature granulocytes/100 WBC (Bld) 0.300 % 0.0-0.9 [facility] Comment on above: IG% - Immature Granu locytes (promyelocytes, myelocytes and metamyelocytes) > 1% indicates that a LEFT SHIFT is Present. MCH (RBC) [Entitic mass] 30.5 pg 27.0-32.0 [facility] Nucleated RBC/100 WBC (Bld) [Ratio] 0 % 0-5 [facility] MCHC Auto (RBC) [Mass/Vol]Or dered By: Renard Burgos on 06-20-2022 MCHC (RBC) [Mass/Vol] 33.1 g/dL 32-36 [facility] Platelets bldOrdered By: Lyubov Burgos on 06-20-2022 Platelets (Bld) [#/Vol] 207 10*3/uL 150-450 [facility] Absolute lymphocyte countOrd ered By: Renard Burgos on 06-13-2022 Lymphocytes Auto (Unsp spec) [#/Vol] 2.28 10*3/uL 0.83-4.51 [facility] Basophil percentageOrdered B y: Renard Burgos on 06-13-2022 Basophils/100 WBC (Bld) 0.5 % 0-1 [facility] Eosinophils/100 WBC (Bld) 0.4 % 0-5 [facility] Neutrophils (Bld) [#/Vol] 6.0 10*3/uL 2.0-7.7 [facility] Neutrophils/100 WBC (Bld) 65.6 % 47-70 [facility] WBC (Bld) [#/Vol] 9.2 10*3/uL 4.4-11.0 [facility] Blood erythrocytes count (nu mber/volume)Ordered By: Renard Burgos on 06-13-2022 RBC (Bld) [#/Vol] 4.55 10*6/uL 4.6-6.2 [facility] Blood hemoglobin measurement (mass/volume)Ordered By: Renard Burgos on 06-13-2022 Hemoglobin (Bld) [Mass/Vol] 13.7 g/dL 13.0-16.5 [facility] Blood lymphocytes/100 leukoc ytesOrdered By: Renard Burgos on 06-13-2022 Lymphocytes/100 WBC (Bld) 24.9 % 19-41 [facility] Blood monocytes/100 leukocyt esOrdered By: Renard Burgos on 06-13-2022 Monocytes/100 WBC (Bld) 8.2 % 0-10 [facility] Blood platelet mean volumeOr dered By: Renard Burgos on 06-13-2022 Platelet mean volume (Bld) [Entitic vol] 10.9 fL 6.2-12.0 [facility] Determination of erythrocyte mean corpuscular volume (MCV)Ordered By: Renard Burgos on 06-13-2022 MCV (RBC) [Entitic vol] 92.3 fL 80-94 [facility] Hematocrit Auto (Bld) [Volum e fraction]Ordered By: Renard Burgos on 06-13-2022 Hematocrit (Bld) [Volume fraction] 42.0 % 40-54 [facility] Laboratory - Hematology and Cell countsOrdered By: Renard Burgos on 06-13-2022 Erythrocyte distribution width (RBC) [Entitic vol] 43.2 fL 35.1-43.9 [facility] Erythrocyte distribution width (RBC) [Ratio] 12.8 % 11.6-14.6 [facility] Immature granulocytes/100 WBC (Bld) 0.400 % 0.0-0.9 [facility] Comment on above: IG% - Immature Granu locytes (promyelocytes, myelocytes and metamyelocytes) > 1% indicates that a LEFT SHIFT is Present. MCH (RBC) [Entitic mass] 30.1 pg 27.0-32.0 [facility] Nucleated RBC/100 WBC (Bld) [Ratio] 0 % 0-5 [facility] MCHC Auto (RBC) [Mass/Vol]Or dered By: Renard Burgos on 06-13-2022 MCHC (RBC) [Mass/Vol] 32.6 g/dL 32-36 [facility] Platelets bldOrdered By: Lyubov Burgos on 06-13-2022 Platelets (Bld) [#/Vol] 203 10*3/uL 150-450 [facility] Absolute lymphocyte countOrd ered By: Renard Burgos on 06-06-2022 Lymphocytes Auto (Unsp spec) [#/Vol] 2.02 10*3/uL 0.83-4.51 [facility] Basophil percentageOrdered B y: Renard Burgos on 06-06-2022 Basophils/100 WBC (Bld) 0.5 % 0-1 [facility] Eosinophils/100 WBC (Bld) 0.7 % 0-5 [facility] Neutrophils (Bld) [#/Vol] 4.7 10*3/uL 2.0-7.7 [facility] Neutrophils/100 WBC (Bld) 63.3 % 47-70 [facility] WBC (Bld) [#/Vol] 7.4 10*3/uL 4.4-11.0 [facility] Blood erythrocytes count (nu mber/volume)Ordered By: Renard Burgos on 06-06-2022 RBC (Bld) [#/Vol] 4.57 10*6/uL 4.6-6.2 [facility] Blood hemoglobin measurement (mass/volume)Ordered By: Renard Burgos on 06-06-2022 Hemoglobin (Bld) [Mass/Vol] 14.0 g/dL 13.0-16.5 [facility] Blood lymphocytes/100 leukoc ytesOrdered By: Renard Burgos on 06-06-2022 Lymphocytes/100 WBC (Bld) 27.2 % 19-41 [facility] Blood monocytes/100 leukocyt esOrdered By: Renard Burgos on 06-06-2022 Monocytes/100 WBC (Bld) 7.9 % 0-10 [facility] Blood platelet mean volumeOr dered By: Renard Brugos on 06-06-2022 Platelet mean volume (Bld) [Entitic vol] 10.7 fL 6.2-12.0 [facility] Determination of erythrocyte mean corpuscular volume (MCV)Ordered By: Renard Burgos on 06-06-2022 MCV (RBC) [Entitic vol] 90.2 fL 80-94 [facility] Hematocrit Auto (Bld) [Volum e fraction]Ordered By: Renard Burgos on 06-06-2022 Hematocrit (Bld) [Volume fraction] 41.2 % 40-54 [facility] Laboratory - Hematology and Cell countsOrdered By: Renard Burgos on 06-06-2022 Erythrocyte distribution width (RBC) [Entitic vol] 41.5 fL 35.1-43.9 [facility] Erythrocyte distribution width (RBC) [Ratio] 12.7 % 11.6-14.6 [facility] Immature granulocytes/100 WBC (Bld) 0.400 % 0.0-0.9 [facility] Comment on above: IG% - Immature Granu locytes (promyelocytes, myelocytes and metamyelocytes) > 1% indicates that a LEFT SHIFT is Present. MCH (RBC) [Entitic mass] 30.6 pg 27.0-32.0 [facility] Nucleated RBC/100 WBC (Bld) [Ratio] 0 % 0-5 [facility] MCHC Auto (RBC) [Mass/Vol]Or dered By: Renard Burgos on 06-06-2022 MCHC (RBC) [Mass/Vol] 34.0 g/dL 32-36 [facility] Platelets bldOrdered By: Lyubov Burgos on 06-06-2022 Platelets (Bld) [#/Vol] 197 10*3/uL 150-450 [facility] Absolute lymphocyte countOrd ered By: Renard Burgos on 05-30-2022 Lymphocytes Auto (Unsp spec) [#/Vol] 2.32 10*3/uL 0.83-4.51 [facility] Basophil percentageOrdered B y: Renard Burgos on 05-30-2022 Basophils/100 WBC (Bld) 0.4 % 0-1 [facility] Eosinophils/100 WBC (Bld) 0.5 % 0-5 [facility] Neutrophils (Bld) [#/Vol] 5.2 10*3/uL 2.0-7.7 [facility] Neutrophils/100 WBC (Bld) 62.6 % 47-70 [facility] WBC (Bld) [#/Vol] 8.3 10*3/uL 4.4-11.0 [facility] Blood erythrocytes count (nu mber/volume)Ordered By: Renard Burgos on 05-30-2022 RBC (Bld) [#/Vol] 4.87 10*6/uL 4.6-6.2 [facility] Blood hemoglobin measurement (mass/volume)Ordered By: Renard Burgos on 05-30-2022 Hemoglobin (Bld) [Mass/Vol] 14.6 g/dL 13.0-16.5 [facility] Blood lymphocytes/100 leukoc ytesOrdered By: Renard Burgos on 05-30-2022 Lymphocytes/100 WBC (Bld) 27.9 % 19-41 [facility] Blood monocytes/100 leukocyt esOrdered By: Renard Burgos on 05-30-2022 Monocytes/100 WBC (Bld) 8.0 % 0-10 [facility] Blood platelet mean volumeOr dered By: Renard Burgos on 05-30-2022 Platelet mean volume (Bld) [Entitic vol] 10.9 fL 6.2-12.0 [facility] Determination of erythrocyte mean corpuscular volume (MCV)Ordered By: Renard Burgos on 05-30-2022 MCV (RBC) [Entitic vol] 91.6 fL 80-94 [facility] Hematocrit Auto (Bld) [Volum e fraction]Ordered By: Renard Burgos on 05-30-2022 Hematocrit (Bld) [Volume fraction] 44.6 % 40-54 [facility] Laboratory - Hematology and Cell countsOrdered By: Renard Burgos on 05-30-2022 Erythrocyte distribution width (RBC) [Entitic vol] 42.4 fL 35.1-43.9 [facility] Erythrocyte distribution width (RBC) [Ratio] 12.6 % 11.6-14.6 [facility] Immature granulocytes/100 WBC (Bld) 0.600 % 0.0-0.9 [facility] Comment on above: IG% - Immature Granu locytes (promyelocytes, myelocytes and metamyelocytes) > 1% indicates that a LEFT SHIFT is Present. MCH (RBC) [Entitic mass] 30.0 pg 27.0-32.0 [facility] Nucleated RBC/100 WBC (Bld) [Ratio] 0 % 0-5 [facility] MCHC Auto (RBC) [Mass/Vol]Or dered By: Renard Burgos on 05-30-2022 MCHC (RBC) [Mass/Vol] 32.7 g/dL 32-36 [facility] Platelets bldOrdered By: Pet lizy Burgos on 05-30-2022 Platelets (Bld) [#/Vol] 213 10*3/uL 150-450 [facility] Absolute lymphocyte countOrd ered By: Renard Burgos on 05-23-2022 Lymphocytes Auto (Unsp spec) [#/Vol] 2.07 10*3/uL 0.83-4.51 [facility] Basophil percentageOrdered B y: Renard Burgos on 05-23-2022 Basophils/100 WBC (Bld) 0.5 % 0-1 [facility] Eosinophils/100 WBC (Bld) 0.4 % 0-5 [facility] Neutrophils (Bld) [#/Vol] 5.7 10*3/uL 2.0-7.7 [facility] Neutrophils/100 WBC (Bld) 66.5 % 47-70 [facility] WBC (Bld) [#/Vol] 8.5 10*3/uL 4.4-11.0 [facility] Blood erythrocytes count (nu mber/volume)Ordered By: Renard Burgos on 05-23-2022 RBC (Bld) [#/Vol] 4.75 10*6/uL 4.6-6.2 [facility] Blood hemoglobin measurement (mass/volume)Ordered By: Renard Burgos on 05-23-2022 Hemoglobin (Bld) [Mass/Vol] 14.3 g/dL 13.0-16.5 [facility] Blood lymphocytes/100 leukoc ytesOrdered By: Renard Burgos on 05-23-2022 Lymphocytes/100 WBC (Bld) 24.4 % 19-41 [facility] Blood monocytes/100 leukocyt esOrdered By: Renard Burgos on 05-23-2022 Monocytes/100 WBC (Bld) 7.7 % 0-10 [facility] Blood platelet mean volumeOr dered By: Renard Burgos on 05-23-2022 Platelet mean volume (Bld) [Entitic vol] 11.1 fL 6.2-12.0 [facility] Determination of erythrocyte mean corpuscular volume (MCV)Ordered By: Renard Burgos on 05-23-2022 MCV (RBC) [Entitic vol] 90.9 fL 80-94 [facility] Hematocrit Auto (Bld) [Volum e fraction]Ordered By: Renard Burgos on 05-23-2022 Hematocrit (Bld) [Volume fraction] 43.2 % 40-54 [facility] Laboratory - Hematology and Cell countsOrdered By: Renard Burgos on 05-23-2022 Erythrocyte distribution width (RBC) [Entitic vol] 41.7 fL 35.1-43.9 [facility] Erythrocyte distribution width (RBC) [Ratio] 12.5 % 11.6-14.6 [facility] Immature granulocytes/100 WBC (Bld) 0.500 % 0.0-0.9 [facility] Comment on above: IG% - Immature Granu locytes (promyelocytes, myelocytes and metamyelocytes) > 1% indicates that a LEFT SHIFT is Present. MCH (RBC) [Entitic mass] 30.1 pg 27.0-32.0 [facility] Nucleated RBC/100 WBC (Bld) [Ratio] 0 % 0-5 [facility] MCHC Auto (RBC) [Mass/Vol]Or dered By: Renard Burgos on 05-23-2022 MCHC (RBC) [Mass/Vol] 33.1 g/dL 32-36 [facility] Platelets bldOrdered By: Lyubov Burgos on 05-23-2022 Platelets (Bld) [#/Vol] 213 10*3/uL 150-450 [facility] No Panel Informationon 05-20 Dejah Hazel DO 05/20/2022 7:32 PM Feeding Tube Replacement Performed by: Dejah Hazel DO Authorized by: Abelardo Rios DO Consent: Consent obtained: Verbal Consent given by: Patient [place] protocol: Patient identity confirmed: Verbally with patient [...] Procedure completion: Tolerated well, no immediate complications [employer] XR Abdomen Single viewon G-tube position is within the stomach. No evidence of contrast extravasation. Report Dictated on Electronically Signed By: Jason Tran Electronically Signed Date/Time: 05/20/2022 7:38 PM EST [employer] Patient Name: KATHAY HOOPER Exam Date/Time: 05/20/2022 19:18 Procedure: XR ABDOMEN 1 VIEW Ordering Provider: RIOS TYLER Reason For Exam: SUPINE ABDOMEN (KUB) CLINICAL INDICATION: confirm placement of G tube A supine plain film of the abdomen was obtained. Repeat abdominal radiographs following hand injection of enteric contrast via the patient's enteric tube. (Gastrografin 30 mL). COMPARISON: None FINDINGS: On the steward/stewardess dining room image, no dilated bowel loops are identified. Feeding tube overlies the epigastric region of the abdomen. On the postcontrast images, there is a small amount of enteric contrast in the stomach and contrast is present throughout the proximal duodenum. No extravasated contrast is evident. [employer] Jason Tran M D - 05/20/2022 [...] 30 mL). COMPARISON: None FINDINGS: On the steward/stewardess dining room image, no dilated bowel loops are identified. [...] Electronically Signed Date/Time: 05/20/2022 7:38 PM EST [facility] [employer] Radiology Study observation (narrative) [facility] XR Abdomen Single viewOrdere d By: Jason Tran on 05-20-2022 [employer] Work Phone: Absolute lymphocyte countOrd ered By: Renard Burgos on 05-16-2022 Lymphocytes Auto (Unsp spec) [#/Vol] 2.06 10*3/uL 0.83-4.51 [facility] Basophil percentageOrdered B y: Renard Burgos on 05-16-2022 Basophils/100 WBC (Bld) 0.6 % 0-1 [facility] Eosinophils/100 WBC (Bld) 0.6 % 0-5 [facility] Neutrophils (Bld) [#/Vol] 4.4 10*3/uL 2.0-7.7 [facility] Neutrophils/100 WBC (Bld) 61.2 % 47-70 [facility] WBC (Bld) [#/Vol] 7.1 10*3/uL 4.4-11.0 [facility] Blood erythrocytes count (nu mber/volume)Ordered By: Renard Burgos on 05-16-2022 RBC (Bld) [#/Vol] 4.58 10*6/uL 4.6-6.2 [facility] Blood hemoglobin measurement (mass/volume)Ordered By: Renard Burgos on 05-16-2022 Hemoglobin (Bld) [Mass/Vol] 13.9 g/dL 13.0-16.5 [facility] Blood lymphocytes/100 leukoc ytesOrdered By: Renard Burgos on 05-16-2022 Lymphocytes/100 WBC (Bld) 29.0 % 19-41 [facility] Blood monocytes/100 leukocyt esOrdered By: Renard Burgos on 05-16-2022 Monocytes/100 WBC (Bld) 8.2 % 0-10 [facility] Blood platelet mean volumeOr dered By: Renard Burgos on 05-16-2022 Platelet mean volume (Bld) [Entitic vol] 11.1 fL 6.2-12.0 [facility] Determination of erythrocyte mean corpuscular volume (MCV)Ordered By: Renard Burgos on 05-16-2022 MCV (RBC) [Entitic vol] 91.5 fL 80-94 [facility] Hematocrit Auto (Bld) [Volum e fraction]Ordered By: Renard Burgos on 05-16-2022 Hematocrit (Bld) [Volume fraction] 41.9 % 40-54 [facility] Laboratory - Hematology and Cell countsOrdered By: Renard Burgos on 05-16-2022 Erythrocyte distribution width (RBC) [Entitic vol] 41.3 fL 35.1-43.9 [facility] Erythrocyte distribution width (RBC) [Ratio] 12.5 % 11.6-14.6 [facility] Immature granulocytes/100 WBC (Bld) 0.400 % 0.0-0.9 [facility] Comment on above: IG% - Immature Granu locytes (promyelocytes, myelocytes and metamyelocytes) > 1% indicates that a LEFT SHIFT is Present. MCH (RBC) [Entitic mass] 30.3 pg 27.0-32.0 [facility] Nucleated RBC/100 WBC (Bld) [Ratio] 0 % 0-5 [facility] MCHC Auto (RBC) [Mass/Vol]Or dered By: Renard Burgos on 05-16-2022 MCHC (RBC) [Mass/Vol] 33.2 g/dL 32-36 [facility] Platelets bldOrdered By: Lyubov Burgos on 05-16-2022 Platelets (Bld) [#/Vol] 205 10*3/uL 150-450 [facility] Absolute lymphocyte countOrd ered By: Renard Burgos on 05-09-2022 Lymphocytes Auto (Unsp spec) [#/Vol] 1.92 10*3/uL 0.83-4.51 [facility] Basophil percentageOrdered B y: Renard Burgos on 05-09-2022 Basophils/100 WBC (Bld) 0.7 % 0-1 [facility] Eosinophils/100 WBC (Bld) 0.7 % 0-5 [facility] Neutrophils (Bld) [#/Vol] 4.3 10*3/uL 2.0-7.7 [facility] Neutrophils/100 WBC (Bld) 60.9 % 47-70 [facility] WBC (Bld) [#/Vol] 7.1 10*3/uL 4.4-11.0 [facility] Blood erythrocytes count (nu mber/volume)Ordered By: Renard Burgos on 05-09-2022 RBC (Bld) [#/Vol] 4.67 10*6/uL 4.6-6.2 [facility] Blood hemoglobin measurement (mass/volume)Ordered By: Renard Burgos on 05-09-2022 Hemoglobin (Bld) [Mass/Vol] 14.1 g/dL 13.0-16.5 [facility] Blood lymphocytes/100 leukoc ytesOrdered By: Renard Burgos on 05-09-2022 Lymphocytes/100 WBC (Bld) 27.2 % 19-41 [facility] Blood monocytes/100 leukocyt esOrdered By: Renard Burgos on 05-09-2022 Monocytes/100 WBC (Bld) 10.2 % 0-10 [facility] Blood platelet mean volumeOr dered By: Renard Burgos on 05-09-2022 Platelet mean volume (Bld) [Entitic vol] 11.5 fL 6.2-12.0 [facility] Determination of erythrocyte mean corpuscular volume (MCV)Ordered By: Renard Burgos on 05-09-2022 MCV (RBC) [Entitic vol] 91.0 fL 80-94 [facility] Hematocrit Auto (Bld) [Volum e fraction]Ordered By: Renard Burgos on 05-09-2022 Hematocrit (Bld) [Volume fraction] 42.5 % 40-54 [facility] Laboratory - Hematology and Cell countsOrdered By: Renard Burgos on 05-09-2022 Erythrocyte distribution width (RBC) [Entitic vol] 41.4 fL 35.1-43.9 [facility] Erythrocyte distribution width (RBC) [Ratio] 12.7 % 11.6-14.6 [facility] Immature granulocytes/100 WBC (Bld) 0.300 % 0.0-0.9 [facility] Comment on above: IG% - Immature Granu locytes (promyelocytes, myelocytes and metamyelocytes) > 1% indicates that a LEFT SHIFT is Present. MCH (RBC) [Entitic mass] 30.2 pg 27.0-32.0 [facility] Nucleated RBC/100 WBC (Bld) [Ratio] 0.4 % 0-5 [facility] MCHC Auto (RBC) [Mass/Vol]Or dered By: Renard Burgos on 05-09-2022 MCHC (RBC) [Mass/Vol] 33.2 g/dL 32-36 [facility] Platelets bldOrdered By: Lyubov Burgos on 05-09-2022 Platelets (Bld) [#/Vol] 202 10*3/uL 150-450 [facility] Absolute lymphocyte countOrd ered By: Renard Burgos on 05-03-2022 Lymphocytes Auto (Unsp spec) [#/Vol] 1.86 10*3/uL 0.83-4.51 [facility] Basophil percentageOrdered B y: Renard Burgos on 05-03-2022 Basophils/100 WBC (Bld) 0.3 % 0-1 [facility] Eosinophils/100 WBC (Bld) 0.3 % 0-5 [facility] Neutrophils (Bld) [#/Vol] 6.4 10*3/uL 2.0-7.7 [facility] Neutrophils/100 WBC (Bld) 71.9 % 47-70 [facility] WBC (Bld) [#/Vol] 8.9 10*3/uL 4.4-11.0 [facility] Blood erythrocytes count (nu mber/volume)Ordered By: Renard Burgos on 05-03-2022 RBC (Bld) [#/Vol] 4.65 10*6/uL 4.6-6.2 [facility] Blood hemoglobin measurement (mass/volume)Ordered By: Renard Burgos on 05-03-2022 Hemoglobin (Bld) [Mass/Vol] 14.5 g/dL 13.0-16.5 [facility] Blood lymphocytes/100 leukoc ytesOrdered By: Renard Burgos on 05-03-2022 Lymphocytes/100 WBC (Bld) 20.9 % 19-41 [facility] Blood monocytes/100 leukocyt esOrdered By: Renard Burgos on 05-03-2022 Monocytes/100 WBC (Bld) 6.2 % 0-10 [facility] Blood platelet mean volumeOr dered By: Renard Burgos on 05-03-2022 Platelet mean volume (Bld) [Entitic vol] 11.1 fL 6.2-12.0 [facility] Determination of erythrocyte mean corpuscular volume (MCV)Ordered By: Renard Burgos on 05-03-2022 MCV (RBC) [Entitic vol] 90.1 fL 80-94 [facility] Hematocrit Auto (Bld) [Volum e fraction]Ordered By: Renard Burgos on 05-03-2022 Hematocrit (Bld) [Volume fraction] 41.9 % 40-54 [facility] Laboratory - Hematology and Cell countsOrdered By: Renard Burgos on 05-03-2022 Erythrocyte distribution width (RBC) [Entitic vol] 39.7 fL 35.1-43.9 [facility] Erythrocyte distribution width (RBC) [Ratio] 12.2 % 11.6-14.6 [facility] Immature granulocytes/100 WBC (Bld) 0.400 % 0.0-0.9 [facility] Comment on above: IG% - Immature Granu locytes (promyelocytes, myelocytes and metamyelocytes) > 1% indicates that a LEFT SHIFT is Present. MCH (RBC) [Entitic mass] 31.2 pg 27.0-32.0 [facility] Nucleated RBC/100 WBC (Bld) [Ratio] 0 % 0-5 [facility] MCHC Auto (RBC) [Mass/Vol]Or dered By: Renard Burgos on 05-03-2022 MCHC (RBC) [Mass/Vol] 34.6 g/dL 32-36 [facility] Platelets bldOrdered By: Lyubov Burgos on 05-03-2022 Platelets (Bld) [#/Vol] 203 10*3/uL 150-450 [facility] Absolute lymphocyte countOrd ered By: Renard Burgos on 04-26-2022 Lymphocytes Auto (Unsp spec) [#/Vol] 2.79 10*3/uL 0.83-4.51 [facility] Basophil percentageOrdered B y: Renard Burgos on 04-26-2022 Basophils/100 WBC (Bld) 0.4 % 0-1 [facility] Eosinophils/100 WBC (Bld) 0.4 % 0-5 [facility] Neutrophils (Bld) [#/Vol] 5.9 10*3/uL 2.0-7.7 [facility] Neutrophils/100 WBC (Bld) 60.9 % 47-70 [facility] WBC (Bld) [#/Vol] 9.7 10*3/uL 4.4-11.0 [facility] Blood erythrocytes count (nu mber/volume)Ordered By: Renard Burgos on 04-26-2022 RBC (Bld) [#/Vol] 4.92 10*6/uL 4.6-6.2 [facility] Blood hemoglobin measurement (mass/volume)Ordered By: Renard Burgos on 04-26-2022 Hemoglobin (Bld) [Mass/Vol] 15.2 g/dL 13.0-16.5 [facility] Blood lymphocytes/100 leukoc ytesOrdered By: Renard Burgos on 04-26-2022 Lymphocytes/100 WBC (Bld) 28.9 % 19-41 [facility] Blood monocytes/100 leukocyt esOrdered By: Renard Burgos on 04-26-2022 Monocytes/100 WBC (Bld) 9.0 % 0-10 [facility] Blood platelet mean volumeOr dered By: Renard Burgos on 04-26-2022 Platelet mean volume (Bld) [Entitic vol] 11.0 fL 6.2-12.0 [facility] Determination of erythrocyte mean corpuscular volume (MCV)Ordered By: Renard Burgos on 04-26-2022 MCV (RBC) [Entitic vol] 92.3 fL 80-94 [facility] Hematocrit Auto (Bld) [Volum e fraction]Ordered By: Renard Burgos on 04-26-2022 Hematocrit (Bld) [Volume fraction] 45.4 % 40-54 [facility] Laboratory - Hematology and Cell countsOrdered By: Renard Burgos on 04-26-2022 Erythrocyte distribution width (RBC) [Entitic vol] 42.1 fL 35.1-43.9 [facility] Erythrocyte distribution width (RBC) [Ratio] 12.5 % 11.6-14.6 [facility] Immature granulocytes/100 WBC (Bld) 0.400 % 0.0-0.9 [facility] Comment on above: IG% - Immature Granu locytes (promyelocytes, myelocytes and metamyelocytes) > 1% indicates that a LEFT SHIFT is Present. MCH (RBC) [Entitic mass] 30.9 pg 27.0-32.0 [facility] Nucleated RBC/100 WBC (Bld) [Ratio] 0 % 0-5 [facility] MCHC Auto (RBC) [Mass/Vol]Or dered By: Renard Burgos on 04-26-2022 MCHC (RBC) [Mass/Vol] 33.5 g/dL 32-36 [facility] Platelets bldOrdered By: Lyubov Burgos on 04-26-2022 Platelets (Bld) [#/Vol] 178 10*3/uL 150-450 [facility] Absolute lymphocyte countOrd ered By: Renard Burgos on 04-18-2022 Lymphocytes Auto (Unsp spec) [#/Vol] 2.03 10*3/uL 0.83-4.51 [facility] Basophil percentageOrdered B y: Renard Burgos on 04-18-2022 Basophils/100 WBC (Bld) 0.6 % 0-1 [facility] Eosinophils/100 WBC (Bld) 0.6 % 0-5 [facility] Neutrophils (Bld) [#/Vol] 4.5 10*3/uL 2.0-7.7 [facility] Neutrophils/100 WBC (Bld) 62.0 % 47-70 [facility] WBC (Bld) [#/Vol] 7.2 10*3/uL 4.4-11.0 [facility] Blood erythrocytes count (nu mber/volume)Ordered By: Renard Burgos on 04-18-2022 RBC (Bld) [#/Vol] 4.67 10*6/uL 4.6-6.2 [facility] Blood hemoglobin measurement (mass/volume)Ordered By: Renard Burgos on 04-18-2022 Hemoglobin (Bld) [Mass/Vol] 14.5 g/dL 13.0-16.5 [facility] Blood lymphocytes/100 leukoc ytesOrdered By: Renard Burgos on 04-18-2022 Lymphocytes/100 WBC (Bld) 28.2 % 19-41 [facility] Blood monocytes/100 leukocyt esOrdered By: Renard Burgos on 04-18-2022 Monocytes/100 WBC (Bld) 8.2 % 0-10 [facility] Blood platelet mean volumeOr dered By: Renard Burgos on 04-18-2022 Platelet mean volume (Bld) [Entitic vol] 11.2 fL 6.2-12.0 [facility] Determination of erythrocyte mean corpuscular volume (MCV)Ordered By: Renard Burgos on 04-18-2022 MCV (RBC) [Entitic vol] 90.8 fL 80-94 [facility] Hematocrit Auto (Bld) [Volum e fraction]Ordered By: Renard Burgos on 04-18-2022 Hematocrit (Bld) [Volume fraction] 42.4 % 40-54 [facility] Laboratory - Hematology and Cell countsOrdered By: Renard Burgos on 04-18-2022 Erythrocyte distribution width (RBC) [Entitic vol] 41.1 fL 35.1-43.9 [facility] Erythrocyte distribution width (RBC) [Ratio] 12.5 % 11.6-14.6 [facility] Immature granulocytes/100 WBC (Bld) 0.400 % 0.0-0.9 [facility] Comment on above: IG% - Immature Granu locytes (promyelocytes, myelocytes and metamyelocytes) > 1% indicates that a LEFT SHIFT is Present. MCH (RBC) [Entitic mass] 31.0 pg 27.0-32.0 [facility] Nucleated RBC/100 WBC (Bld) [Ratio] 0 % 0-5 [facility] MCHC Auto (RBC) [Mass/Vol]Or dered By: Renard Burgos on 04-18-2022 MCHC (RBC) [Mass/Vol] 34.2 g/dL 32-36 [facility] Platelets bldOrdered By: Lyubov Burgos on 04-18-2022 Platelets (Bld) [#/Vol] 196 10*3/uL 150-450 [facility] Basophil percentageOrdered B y: Renard Burgos on 04-14-2022 Bilirubin [Mass/Vol] 0.40 mg/dL 0.20-1.00 [facility] [place] Comment on above: For patients on eltr ombopag therapy, use of Dimension [place] TBIL is not recommended. Protein [Mass/Vol] 6.3 g/dL 6.4-8.2 [facility] Direct bilirubinOrdered By: Renard Burgos on 04-14-2022 Bilirubin.direct [Mass/Vol] 0.12 mg/dL 0.00-0.30 [facility] Laboratory - Chemistry and C hemistry - challengeOrdered By: Renard Burgos on 04-14-2022 ALP [Catalytic activity/Vol] 117 U/L 45-117 [facility] ALT [Catalytic activity/Vol] 26 U/L 16-61 [facility] Globulin (S) [Mass/Vol] 3.2 g/dL 2.2-4.2 [facility] Serum or plasma albumin gordy urement (mass/volume)Ordered By: Renard Burgos on 04-14-2022 Albumin [Mass/Vol] 3.1 g/dL 3.2-5.0 [facility] Thin prep Papanicolaou smear with manual screeningOrdered By: Renard Burgos on 04-14-2022 Thin prep Papanicolaou smear with manual screening 12 U/L 15-37 [facility] Absolute lymphocyte countOrd ered By: Renard Burgos on 04-11-2022 Lymphocytes Auto (Unsp spec) [#/Vol] 2.16 10*3/uL 0.83-4.51 [facility] Basophil percentageOrdered B y: Renard Burgos on 04-11-2022 Basophils/100 WBC (Bld) 0.4 % 0-1 [facility] Eosinophils/100 WBC (Bld) 0.4 % 0-5 [facility] Neutrophils (Bld) [#/Vol] 4.2 10*3/uL 2.0-7.7 [facility] Neutrophils/100 WBC (Bld) 61.1 % 47-70 [facility] WBC (Bld) [#/Vol] 6.9 10*3/uL 4.4-11.0 [facility] Blood erythrocytes count (nu mber/volume)Ordered By: Renard Burgos on 04-11-2022 RBC (Bld) [#/Vol] 4.58 10*6/uL 4.6-6.2 [facility] Blood hemoglobin measurement (mass/volume)Ordered By: Renard Burgos on 04-11-2022 Hemoglobin (Bld) [Mass/Vol] 13.9 g/dL 13.0-16.5 [facility] Blood lymphocytes/100 leukoc ytesOrdered By: Renard Burgos on 04-11-2022 Lymphocytes/100 WBC (Bld) 31.2 % 19-41 [facility] Blood monocytes/100 leukocyt esOrdered By: Renard Burgos on 04-11-2022 Monocytes/100 WBC (Bld) 6.5 % 0-10 [facility] Blood platelet mean volumeOr dered By: Renard Burgos on 04-11-2022 Platelet mean volume (Bld) [Entitic vol] 11.4 fL 6.2-12.0 [facility] Determination of erythrocyte mean corpuscular volume (MCV)Ordered By: Renard Burgos on 04-11-2022 MCV (RBC) [Entitic vol] 91.9 fL 80-94 [facility] Hematocrit Auto (Bld) [Volum e fraction]Ordered By: Renard Burgos on 04-11-2022 Hematocrit (Bld) [Volume fraction] 42.1 % 40-54 [facility] Laboratory - Hematology and Cell countsOrdered By: Renard Burogs on 04-11-2022 Erythrocyte distribution width (RBC) [Entitic vol] 41.5 fL 35.1-43.9 [facility] Erythrocyte distribution width (RBC) [Ratio] 12.3 % 11.6-14.6 [facility] Immature granulocytes/100 WBC (Bld) 0.400 % 0.0-0.9 [facility] Comment on above: IG% - Immature Granu locytes (promyelocytes, myelocytes and metamyelocytes) > 1% indicates that a LEFT SHIFT is Present. MCH (RBC) [Entitic mass] 30.3 pg 27.0-32.0 [facility] Nucleated RBC/100 WBC (Bld) [Ratio] 0 % 0-5 [facility] MCHC Auto (RBC) [Mass/Vol]Or dered By: Renard Burgos on 04-11-2022 MCHC (RBC) [Mass/Vol] 33.0 g/dL 32-36 [facility] Platelets bldOrdered By: Lyubov Burgos on 04-11-2022 Platelets (Bld) [#/Vol] 191 10*3/uL 150-450 [facility] Absolute lymphocyte countOrd ered By: Renard Burgos on 04-04-2022 Lymphocytes Auto (Unsp spec) [#/Vol] 1.99 10*3/uL 0.83-4.51 [facility] Basophil percentageOrdered B y: Renard Burgos on 04-04-2022 Basophils/100 WBC (Bld) 0.4 % 0-1 [facility] Cholesterol [Mass/Vol] 158 mg/dL <200 [facility] Comment on above: <200 mg/dL Desirable 200-240 mg/dL Borderline >240 mg/dL High Risk Eosinophils/100 WBC (Bld) 0.4 % 0-5 [facility] Neutrophils (Bld) [#/Vol] 4.9 10*3/uL 2.0-7.7 [facility] Neutrophils/100 WBC (Bld) 64.2 % 47-70 [facility] Triglyceride [Mass/Vol] 259 mg/dL <199 [facility] Comment on above: The drugs N-Acetylcy steine and Metamizole may falsely depress this assay.Serum Triglycerides Reference Interval Normal <150 mg/dL Borderline high 150 - 199 mg/dL High 200 - 499 mg/dL Very High > or = 500 mg/dL WBC (Bld) [#/Vol] 7.7 10*3/uL 4.4-11.0 [facility] Blood erythrocytes count (nu mber/volume)Ordered By: Renard Burgos on 04-04-2022 RBC (Bld) [#/Vol] 4.63 10*6/uL 4.6-6.2 [facility] Blood hemoglobin measurement (mass/volume)Ordered By: Renard Burgos on 04-04-2022 Hemoglobin (Bld) [Mass/Vol] 14.1 g/dL 13.0-16.5 [facility] Blood lymphocytes/100 leukoc ytesOrdered By: Renard Brugos on 04-04-2022 Lymphocytes/100 WBC (Bld) 25.9 % 19-41 [facility] Blood monocytes/100 leukocyt esOrdered By: Renard Burgos on 04-04-2022 Monocytes/100 WBC (Bld) 8.6 % 0-10 [facility] Blood platelet mean volumeOr dered By: Renard Burgos on 04-04-2022 Platelet mean volume (Bld) [Entitic vol] 11.3 fL 6.2-12.0 [facility] Determination of erythrocyte mean corpuscular volume (MCV)Ordered By: Renard Burgos on 04-04-2022 MCV (RBC) [Entitic vol] 90.7 fL 80-94 [facility] Hematocrit Auto (Bld) [Volum e fraction]Ordered By: Renard Burgos on 04-04-2022 Hematocrit (Bld) [Volume fraction] 42.0 % 40-54 [facility] Laboratory - Hematology and Cell countsOrdered By: Renard Burgos on 04-04-2022 Erythrocyte distribution width (RBC) [Entitic vol] 41.3 fL 35.1-43.9 [facility] Erythrocyte distribution width (RBC) [Ratio] 12.4 % 11.6-14.6 [facility] Immature granulocytes/100 WBC (Bld) 0.500 % 0.0-0.9 [facility] Comment on above: IG% - Immature Granu locytes (promyelocytes, myelocytes and metamyelocytes) > 1% indicates that a LEFT SHIFT is Present. MCH (RBC) [Entitic mass] 30.5 pg 27.0-32.0 [facility] Nucleated RBC/100 WBC (Bld) [Ratio] 0 % 0-5 [facility] MCHC Auto (RBC) [Mass/Vol]Or dered By: Renard Burgos on 04-04-2022 MCHC (RBC) [Mass/Vol] 33.6 g/dL 32-36 [facility] Platelets bldOrdered By: Lyubov Burgos on 04-04-2022 Platelets (Bld) [#/Vol] 174 10*3/uL 150-450 [facility] Serum or plasma cholesterol in HDL measurement (mass/volume)Ordered By: Renard Burgos on 04-04-2022 Cholesterol in HDL [Mass/Vol] 26 mg/dL >40 [facility] Comment on above: The drugs N-Acetylcy steine and Metamizole may falsely depress this assay. Reference Range HDL <40 mg/dL Low HDL Cholesterol HDL >or= 60 mg/dL High HDL Cholesterol Serum or plasma cholesterol in VLDL measurement (mass/volume)Ordered By: Renard Burgos on 04-04-2022 Cholesterol in VLDL [Mass/Vol] 52 mg/dL 5-40 [facility] Serum or plasma low density lipoprotein (LDL) cholesterol measurement (mass/volume)Ordered By: Renard Burgos on 04-04-2022 Cholesterol in LDL [Mass/Vol] 80 mg/dL 0-130 [facility] Absolute lymphocyte countOrd ered By: Renard Burgos on 03-28-2022 Lymphocytes Auto (Unsp spec) [#/Vol] 2.25 10*3/uL 0.83-4.51 [facility] Basophil percentageOrdered B y: Renard Burgos on 03-28-2022 Basophils/100 WBC (Bld) 0.6 % 0-1 [facility] Eosinophils/100 WBC (Bld) 0.5 % 0-5 [facility] Neutrophils (Bld) [#/Vol] 4.8 10*3/uL 2.0-7.7 [facility] Neutrophils/100 WBC (Bld) 60.5 % 47-70 [facility] WBC (Bld) [#/Vol] 8.0 10*3/uL 4.4-11.0 [facility] Blood erythrocytes count (nu mber/volume)Ordered By: Renard Burgos on 03-28-2022 RBC (Bld) [#/Vol] 4.69 10*6/uL 4.6-6.2 [facility] Blood hemoglobin measurement (mass/volume)Ordered By: Renard Burgos on 03-28-2022 Hemoglobin (Bld) [Mass/Vol] 14.4 g/dL 13.0-16.5 [facility] Blood lymphocytes/100 leukoc ytesOrdered By: Renard Burgos on 03-28-2022 Lymphocytes/100 WBC (Bld) 28.1 % 19-41 [facility] Blood monocytes/100 leukocyt esOrdered By: Renard Burgos on 03-28-2022 Monocytes/100 WBC (Bld) 9.8 % 0-10 [facility] Blood platelet mean volumeOr dered By: Renard Burgos on 03-28-2022 Platelet mean volume (Bld) [Entitic vol] 10.8 fL 6.2-12.0 [facility] Determination of erythrocyte mean corpuscular volume (MCV)Ordered By: Renard Burgos on 03-28-2022 MCV (RBC) [Entitic vol] 92.1 fL 80-94 [facility] Hematocrit Auto (Bld) [Volum e fraction]Ordered By: Renard Burgos on 03-28-2022 Hematocrit (Bld) [Volume fraction] 43.2 % 40-54 [facility] Laboratory - Hematology and Cell countsOrdered By: Renard Burgos on 03-28-2022 Erythrocyte distribution width (RBC) [Entitic vol] 42.0 fL 35.1-43.9 [facility] Erythrocyte distribution width (RBC) [Ratio] 12.5 % 11.6-14.6 [facility] Immature granulocytes/100 WBC (Bld) 0.500 % 0.0-0.9 [facility] Comment on above: IG% - Immature Granu locytes (promyelocytes, myelocytes and metamyelocytes) > 1% indicates that a LEFT SHIFT is Present. MCH (RBC) [Entitic mass] 30.7 pg 27.0-32.0 [facility] Nucleated RBC/100 WBC (Bld) [Ratio] 0 % 0-5 [facility] MCHC Auto (RBC) [Mass/Vol]Or dered By: Renard Burgos on 03-28-2022 MCHC (RBC) [Mass/Vol] 33.3 g/dL 32-36 [facility] Platelets bldOrdered By: Lyubov Burgos on 03-28-2022 Platelets (Bld) [#/Vol] 207 10*3/uL 150-450 [facility] Absolute lymphocyte countOrd ered By: Renard Burgos on 03-21-2022 Lymphocytes Auto (Unsp spec) [#/Vol] 1.98 10*3/uL 0.83-4.51 [facility] Basophil percentageOrdered B y: Renard Burgos on 03-21-2022 Basophils/100 WBC (Bld) 0.5 % 0-1 [facility] Eosinophils/100 WBC (Bld) 0.5 % 0-5 [facility] Neutrophils (Bld) [#/Vol] 4.9 10*3/uL 2.0-7.7 [facility] Neutrophils/100 WBC (Bld) 63.6 % 47-70 [facility] WBC (Bld) [#/Vol] 7.7 10*3/uL 4.4-11.0 [facility] Blood erythrocytes count (nu mber/volume)Ordered By: Renard Burgos on 03-21-2022 RBC (Bld) [#/Vol] 4.82 10*6/uL 4.6-6.2 [facility] Blood hemoglobin measurement (mass/volume)Ordered By: Renard Burgos on 03-21-2022 Hemoglobin (Bld) [Mass/Vol] 14.9 g/dL 13.0-16.5 [facility] Blood lymphocytes/100 leukoc ytesOrdered By: Renard Burgos on 03-21-2022 Lymphocytes/100 WBC (Bld) 25.7 % 19-41 [facility] Blood monocytes/100 leukocyt esOrdered By: Renard Burgos on 03-21-2022 Monocytes/100 WBC (Bld) 9.3 % 0-10 [facility] Blood platelet mean volumeOr dered By: Renard Burgos on 03-21-2022 Platelet mean volume (Bld) [Entitic vol] 10.8 fL 6.2-12.0 [facility] Determination of erythrocyte mean corpuscular volume (MCV)Ordered By: Renard Burgos on 03-21-2022 MCV (RBC) [Entitic vol] 90.7 fL 80-94 [facility] Hematocrit Auto (Bld) [Volum e fraction]Ordered By: Renard Burgos on 03-21-2022 Hematocrit (Bld) [Volume fraction] 43.7 % 40-54 [facility] Laboratory - Hematology and Cell countsOrdered By: Renard Burgos on 03-21-2022 Erythrocyte distribution width (RBC) [Entitic vol] 40.8 fL 35.1-43.9 [facility] Erythrocyte distribution width (RBC) [Ratio] 12.4 % 11.6-14.6 [facility] Immature granulocytes/100 WBC (Bld) 0.400 % 0.0-0.9 [facility] Comment on above: IG% - Immature Granu locytes (promyelocytes, myelocytes and metamyelocytes) > 1% indicates that a LEFT SHIFT is Present. MCH (RBC) [Entitic mass] 30.9 pg 27.0-32.0 [facility] Nucleated RBC/100 WBC (Bld) [Ratio] 0 % 0-5 [facility] MCHC Auto (RBC) [Mass/Vol]Or dered By: Renard Burgos on 03-21-2022 MCHC (RBC) [Mass/Vol] 34.1 g/dL 32-36 [facility] Platelets bldOrdered By: Lyubov Burgos on 03-21-2022 Platelets (Bld) [#/Vol] 186 10*3/uL 150-450 [facility] Absolute lymphocyte countOrd ered By: Renard Burgos on 03-14-2022 Lymphocytes Auto (Unsp spec) [#/Vol] 2.18 10*3/uL 0.83-4.51 [facility] Basophil percentageOrdered B y: Renard Burgos on 03-14-2022 Basophils/100 WBC (Bld) 0.4 % 0-1 [facility] Eosinophils/100 WBC (Bld) 0.6 % 0-5 [facility] Neutrophils (Bld) [#/Vol] 4.3 10*3/uL 2.0-7.7 [facility] Neutrophils/100 WBC (Bld) 58.8 % 47-70 [facility] WBC (Bld) [#/Vol] 7.3 10*3/uL 4.4-11.0 [facility] Blood erythrocytes count (nu mber/volume)Ordered By: Renard Burgos on 03-14-2022 RBC (Bld) [#/Vol] 4.80 10*6/uL 4.6-6.2 [facility] Blood hemoglobin measurement (mass/volume)Ordered By: Renard Burgos on 03-14-2022 Hemoglobin (Bld) [Mass/Vol] 14.5 g/dL 13.0-16.5 [facility] Blood lymphocytes/100 leukoc ytesOrdered By: Renard Burgos on 03-14-2022 Lymphocytes/100 WBC (Bld) 30.1 % 19-41 [facility] Blood monocytes/100 leukocyt esOrdered By: Renard Burgos on 03-14-2022 Monocytes/100 WBC (Bld) 9.5 % 0-10 [facility] Blood platelet mean volumeOr dered By: Renard Burgos on 03-14-2022 Platelet mean volume (Bld) [Entitic vol] 11.0 fL 6.2-12.0 [facility] Determination of erythrocyte mean corpuscular volume (MCV)Ordered By: Renard Burgos on 03-14-2022 MCV (RBC) [Entitic vol] 91.5 fL 80-94 [facility] Hematocrit Auto (Bld) [Volum e fraction]Ordered By: Renard Burgos on 03-14-2022 Hematocrit (Bld) [Volume fraction] 43.9 % 40-54 [facility] Laboratory - Hematology and Cell countsOrdered By: Renard Burgos on 03-14-2022 Erythrocyte distribution width (RBC) [Entitic vol] 41.1 fL 35.1-43.9 [facility] Erythrocyte distribution width (RBC) [Ratio] 12.4 % 11.6-14.6 [facility] Immature granulocytes/100 WBC (Bld) 0.600 % 0.0-0.9 [facility] Comment on above: IG% - Immature Granu locytes (promyelocytes, myelocytes and metamyelocytes) > 1% indicates that a LEFT SHIFT is Present. MCH (RBC) [Entitic mass] 30.2 pg 27.0-32.0 [facility] Nucleated RBC/100 WBC (Bld) [Ratio] 0 % 0-5 [facility] MCHC Auto (RBC) [Mass/Vol]Or dered By: Renard Burgos on 03-14-2022 MCHC (RBC) [Mass/Vol] 33.0 g/dL 32-36 [facility] Platelets bldOrdered By: [facility] lizy Burgos on 03-14-2022 Platelets (Bld) [#/Vol] 201 10*3/uL 150-450 [facility] Absolute lymphocyte countOrd ered By: Renard Burgos on 2022 Lymphocytes Auto (Unsp spec) [#/Vol] 1.97 10*3/uL 0.83-4.51 [facility] Basophil percentageOrdered B y: Renard Burgos on 2022 Basophils/100 WBC (Bld) 0.6 % 0-1 [facility] Eosinophils/100 WBC (Bld) 0.4 % 0-5 [facility] Neutrophils (Bld) [#/Vol] 4.3 10*3/uL 2.0-7.7 [facility] Neutrophils/100 WBC (Bld) 61.3 % 47-70 [facility] WBC (Bld) [#/Vol] 7.0 10*3/uL 4.4-11.0 [facility] Blood erythrocytes count (nu mber/volume)Ordered By: Renard Burgos on 2022 RBC (Bld) [#/Vol] 4.78 10*6/uL 4.6-6.2 [facility] Blood hemoglobin measurement (mass/volume)Ordered By: Renard Burgos on 2022 Hemoglobin (Bld) [Mass/Vol] 14.4 g/dL 13.0-16.5 [facility] Blood lymphocytes/100 leukoc ytesOrdered By: Renard Burgos on 2022 Lymphocytes/100 WBC (Bld) 28.3 % 19-41 [facility] Blood monocytes/100 leukocyt esOrdered By: Renard Burgos on 2022 Monocytes/100 WBC (Bld) 9.1 % 0-10 [facility] Blood platelet mean volumeOr dered By: Renard Burgos on 2022 Platelet mean volume (Bld) [Entitic vol] 11.1 fL 6.2-12.0 [facility] Determination of erythrocyte mean corpuscular volume (MCV)Ordered By: Renard Burgos on 2022 MCV (RBC) [Entitic vol] 91.2 fL 80-94 [facility] Hematocrit Auto (Bld) [Volum e fraction]Ordered By: Renard Burgos on 2022 Hematocrit (Bld) [Volume fraction] 43.6 % 40-54 [facility] Laboratory - Hematology and Cell countsOrdered By: Renard Burgos on 2022 Erythrocyte distribution width (RBC) [Entitic vol] 42.0 fL 35.1-43.9 [facility] Erythrocyte distribution width (RBC) [Ratio] 12.6 % 11.6-14.6 [facility] Immature granulocytes/100 WBC (Bld) 0.300 % 0.0-0.9 [facility] Comment on above: IG% - Immature Granu locytes (promyelocytes, myelocytes and metamyelocytes) > 1% indicates that a LEFT SHIFT is Present. MCH (RBC) [Entitic mass] 30.1 pg 27.0-32.0 [facility] Nucleated RBC/100 WBC (Bld) [Ratio] 0 % 0-5 [facility] MCHC Auto (RBC) [Mass/Vol]Or dered By: Renard Burgos on 2022 MCHC (RBC) [Mass/Vol] 33.0 g/dL 32-36 [facility] Platelets bldOrdered By: Lyubov Burgos on 2022 Platelets (Bld) [#/Vol] 210 10*3/uL 150-450 [facility] Absolute lymphocyte countOrd ered By: Renard Burgos on 02-28-2022 Lymphocytes Auto (Unsp spec) [#/Vol] 1.85 10*3/uL 0.83-4.51 [facility] Basophil percentageOrdered B y: Renard Burgos on 02-28-2022 Basophils/100 WBC (Bld) 0.4 % 0-1 [facility] Eosinophils/100 WBC (Bld) 0.4 % 0-5 [facility] Neutrophils (Bld) [#/Vol] 5.3 10*3/uL 2.0-7.7 [facility] Neutrophils/100 WBC (Bld) 67.8 % 47-70 [facility] WBC (Bld) [#/Vol] 7.8 10*3/uL 4.4-11.0 [facility] Blood erythrocytes count (nu mber/volume)Ordered By: Renard Burgos on 02-28-2022 RBC (Bld) [#/Vol] 4.58 10*6/uL 4.6-6.2 [facility] Blood hemoglobin measurement (mass/volume)Ordered By: Renard Burgos on 02-28-2022 Hemoglobin (Bld) [Mass/Vol] 14.3 g/dL 13.0-16.5 [facility] Blood lymphocytes/100 leukoc ytesOrdered By: Renard Burgos on 02-28-2022 Lymphocytes/100 WBC (Bld) 23.8 % 19-41 [facility] Blood monocytes/100 leukocyt esOrdered By: Renard Burgos on 02-28-2022 Monocytes/100 WBC (Bld) 7.2 % 0-10 [facility] [facility] Blood platelet mean volumeOr dered By: Renard Burgos on 02-28-2022 Platelet mean volume (Bld) [Entitic vol] 10.8 fL 6.2-12.0 [facility] Determination of erythrocyte mean corpuscular volume (MCV)Ordered By: Renard Burgos on 02-28-2022 MCV (RBC) [Entitic vol] 91.5 fL 80-94 [facility] Hematocrit Auto (Bld) [Volum e fraction]Ordered By: Renard Brugos on 02-28-2022 Hematocrit (Bld) [Volume fraction] 41.9 % 40-54 [facility] Laboratory - Hematology and Cell countsOrdered By: Renard Burgos on 02-28-2022 Erythrocyte distribution width (RBC) [Entitic vol] 42.2 fL 35.1-43.9 [facility] Erythrocyte distribution width (RBC) [Ratio] 12.7 % 11.6-14.6 [facility] Immature granulocytes/100 WBC (Bld) 0.400 % 0.0-0.9 [facility] Comment on above: IG% - Immature Granu locytes (promyelocytes, myelocytes and metamyelocytes) > 1% indicates that a LEFT SHIFT is Present. MCH (RBC) [Entitic mass] 31.2 pg 27.0-32.0 [facility] Nucleated RBC/100 WBC (Bld) [Ratio] 0 % 0-5 [facility] MCHC Auto (RBC) [Mass/Vol]Or dered By: Renard Burgos on 02-28-2022 MCHC (RBC) [Mass/Vol] 34.1 g/dL 32-36 [facility] Platelets bldOrdered By: Lyubov Burgos on 02-28-2022 Platelets (Bld) [#/Vol] 202 10*3/uL 150-450 [facility] Absolute lymphocyte countOrd ered By: Renard Burgos on 02-21-2022 Lymphocytes Auto (Unsp spec) [#/Vol] 1.93 10*3/uL 0.83-4.51 [facility] Basophil percentageOrdered B y: Renard Burgos on 02-21-2022 Basophils/100 WBC (Bld) 0.4 % 0-1 [facility] Eosinophils/100 WBC (Bld) 0.4 % 0-5 [facility] Neutrophils (Bld) [#/Vol] 4.6 10*3/uL 2.0-7.7 [facility] Neutrophils/100 WBC (Bld) 63.4 % 47-70 [facility] WBC (Bld) [#/Vol] 7.2 10*3/uL 4.4-11.0 [facility] Blood erythrocytes count (nu mber/volume)Ordered By: Renard Burgos on 02-21-2022 RBC (Bld) [#/Vol] 4.54 10*6/uL 4.6-6.2 [facility] Blood hemoglobin measurement (mass/volume)Ordered By: Renard Burgos on 02-21-2022 Hemoglobin (Bld) [Mass/Vol] 14.1 g/dL 13.0-16.5 [facility] Blood lymphocytes/100 leukoc ytesOrdered By: Renard Burgos on 02-21-2022 Lymphocytes/100 WBC (Bld) 26.7 % 19-41 [facility] Blood monocytes/100 leukocyt esOrdered By: Renard Burgos on 02-21-2022 Monocytes/100 WBC (Bld) 8.8 % 0-10 [facility] Blood platelet mean volumeOr dered By: Renard Burgos on 02-21-2022 Platelet mean volume (Bld) [Entitic vol] 11.1 fL 6.2-12.0 [facility] Determination of erythrocyte mean corpuscular volume (MCV)Ordered By: Renard Burgos on 02-21-2022 MCV (RBC) [Entitic vol] 91.4 fL 80-94 [facility] Hematocrit Auto (Bld) [Volum e fraction]Ordered By: Renard Burgos on 02-21-2022 Hematocrit (Bld) [Volume fraction] 41.5 % 40-54 [facility] Laboratory - Hematology and Cell countsOrdered By: Renard Burgos on 02-21-2022 Erythrocyte distribution width (RBC) [Entitic vol] 41.9 fL 35.1-43.9 [facility] Erythrocyte distribution width (RBC) [Ratio] 12.6 % 11.6-14.6 [facility] Immature granulocytes/100 WBC (Bld) 0.300 % 0.0-0.9 [facility] Comment on above: IG% - Immature Granu locytes (promyelocytes, myelocytes and metamyelocytes) > 1% indicates that a LEFT SHIFT is Present. MCH (RBC) [Entitic mass] 31.1 pg 27.0-32.0 [facility] Nucleated RBC/100 WBC (Bld) [Ratio] 0 % 0-5 [facility] MCHC Auto (RBC) [Mass/Vol]Or dered By: Renard Burgos on 02-21-2022 MCHC (RBC) [Mass/Vol] 34.0 g/dL 32-36 [facility] Platelets bldOrdered By: Lyubov Burgos on 02-21-2022 Platelets (Bld) [#/Vol] 189 10*3/uL 150-450 [facility] Absolute lymphocyte countOrd ered By: Renard Burgos on 02-14-2022 Lymphocytes Auto (Unsp spec) [#/Vol] 2.00 10*3/uL 0.83-4.51 [facility] Basophil percentageOrdered B y: Renard Burgos on 02-14-2022 Basophils/100 WBC (Bld) 0.6 % 0-1 [facility] Eosinophils/100 WBC (Bld) 0.3 % 0-5 [facility] Neutrophils (Bld) [#/Vol] 6.4 10*3/uL 2.0-7.7 [facility] Neutrophils/100 WBC (Bld) 69.5 % 47-70 [facility] WBC (Bld) [#/Vol] 9.3 10*3/uL 4.4-11.0 [facility] Blood erythrocytes count (nu mber/volume)Ordered By: Renard Burgos on 02-14-2022 RBC (Bld) [#/Vol] 4.65 10*6/uL 4.6-6.2 [facility] Blood hemoglobin measurement (mass/volume)Ordered By: Renard uBrgos on 02-14-2022 Hemoglobin (Bld) [Mass/Vol] 14.6 g/dL 13.0-16.5 [facility] Blood lymphocytes/100 leukoc ytesOrdered By: Renard Burgos on 02-14-2022 Lymphocytes/100 WBC (Bld) 21.6 % 19-41 [facility] Blood monocytes/100 leukocyt esOrdered By: Renard Burgos on 02-14-2022 Monocytes/100 WBC (Bld) 7.6 % 0-10 [facility] Blood platelet mean volumeOr dered By: Renard Burgos on 02-14-2022 Platelet mean volume (Bld) [Entitic vol] 11.1 fL 6.2-12.0 [facility] Determination of erythrocyte mean corpuscular volume (MCV)Ordered By: Renard Burgos on 02-14-2022 MCV (RBC) [Entitic vol] 91.8 fL 80-94 [facility] Hematocrit Auto (Bld) [Volum e fraction]Ordered By: Renard Burgos on 02-14-2022 Hematocrit (Bld) [Volume fraction] 42.7 % 40-54 [facility] Laboratory - Hematology and Cell countsOrdered By: Renard Burgos on 02-14-2022 Erythrocyte distribution width (RBC) [Entitic vol] 43.7 fL 35.1-43.9 [facility] Erythrocyte distribution width (RBC) [Ratio] 13.0 % 11.6-14.6 [facility] Immature granulocytes/100 WBC (Bld) 0.400 % 0.0-0.9 [facility] Comment on above: IG% - Immature Granu locytes (promyelocytes, myelocytes and metamyelocytes) > 1% indicates that a LEFT SHIFT is Present. MCH (RBC) [Entitic mass] 31.4 pg 27.0-32.0 [facility] Nucleated RBC/100 WBC (Bld) [Ratio] 0 % 0-5 [facility] MCHC Auto (RBC) [Mass/Vol]Or dered By: Renard Burgos on 02-14-2022 MCHC (RBC) [Mass/Vol] 34.2 g/dL 32-36 [facility] Platelets bldOrdered By: Lyubov Burgos on 02-14-2022 Platelets (Bld) [#/Vol] 187 10*3/uL 150-450 [facility] Absolute lymphocyte countOrd ered By: Renard Burgos on 02-07-2022 Lymphocytes Auto (Unsp spec) [#/Vol] 1.97 10*3/uL 0.83-4.51 [facility] Basophil percentageOrdered B y: Renard Burgos on 02-07-2022 Basophils/100 WBC (Bld) 0.4 % 0-1 [facility] Eosinophils/100 WBC (Bld) 0.3 % 0-5 [facility] Neutrophils (Bld) [#/Vol] 4.2 10*3/uL 2.0-7.7 [facility] Neutrophils/100 WBC (Bld) 61.8 % 47-70 [facility] WBC (Bld) [#/Vol] 6.8 10*3/uL 4.4-11.0 [facility] Blood erythrocytes count (nu mber/volume)Ordered By: Renard Burgos on 02-07-2022 RBC (Bld) [#/Vol] 4.86 10*6/uL 4.6-6.2 [facility] Blood hemoglobin measurement (mass/volume)Ordered By: Renard Burgos on 02-07-2022 Hemoglobin (Bld) [Mass/Vol] 15.4 g/dL 13.0-16.5 [facility] Blood lymphocytes/100 leukoc ytesOrdered By: Renard Burgos on 02-07-2022 Lymphocytes/100 WBC (Bld) 29.1 % 19-41 [facility] Blood monocytes/100 leukocyt esOrdered By: Renard Burgos on 02-07-2022 Monocytes/100 WBC (Bld) 8.1 % 0-10 [facility] Blood platelet mean volumeOr dered By: Renard Burgos on 02-07-2022 Platelet mean volume (Bld) [Entitic vol] 11.0 fL 6.2-12.0 [facility] Determination of erythrocyte mean corpuscular volume (MCV)Ordered By: Renard Burgos on 02-07-2022 MCV (RBC) [Entitic vol] 92.6 fL 80-94 [facility] Hematocrit Auto (Bld) [Volum e fraction]Ordered By: Renard Burgos on 02-07-2022 Hematocrit (Bld) [Volume fraction] 45.0 % 40-54 [facility] Laboratory - Hematology and Cell countsOrdered By: Renard Burgos on 02-07-2022 Erythrocyte distribution width (RBC) [Entitic vol] 43.1 fL 35.1-43.9 [facility] Erythrocyte distribution width (RBC) [Ratio] 12.7 % 11.6-14.6 [facility] Immature granulocytes/100 WBC (Bld) 0.300 % 0.0-0.9 [facility] Comment on above: IG% - Immature Granu locytes (promyelocytes, myelocytes and metamyelocytes) > 1% indicates that a LEFT SHIFT is Present. MCH (RBC) [Entitic mass] 31.7 pg 27.0-32.0 [facility] Nucleated RBC/100 WBC (Bld) [Ratio] 0 % 0-5 [facility] MCHC Auto (RBC) [Mass/Vol]Or dered By: Renard Burgos on 02-07-2022 MCHC (RBC) [Mass/Vol] 34.2 g/dL 32-36 [facility] Platelets bldOrdered By: Pet lizy Loretta on 02-07-2022 Platelets (Bld) [#/Vol] 196 10*3/uL 150-450 [facility] Absolute lymphocyte countOrd ered By: Renard Burgos on 01-31-2022 Lymphocytes Auto (Unsp spec) [#/Vol] 2.19 10*3/uL 0.83-4.51 [facility] Basophil percentageOrdered B y: Renard Burgos on 01-31-2022 Basophils/100 WBC (Bld) 0.3 % 0-1 [facility] Eosinophils/100 WBC (Bld) 0.2 % 0-5 [facility] Neutrophils (Bld) [#/Vol] 5.7 10*3/uL 2.0-7.7 [facility] Neutrophils/100 WBC (Bld) 64.9 % 47-70 [facility] WBC (Bld) [#/Vol] 8.8 10*3/uL 4.4-11.0 [facility] Blood erythrocytes count (nu mber/volume)Ordered By: Renard Burgos on 01-31-2022 RBC (Bld) [#/Vol] 4.81 10*6/uL 4.6-6.2 [facility] Blood hemoglobin measurement (mass/volume)Ordered By: Renard Burgos on 01-31-2022 Hemoglobin (Bld) [Mass/Vol] 14.9 g/dL 13.0-16.5 [facility] Blood lymphocytes/100 leukoc ytesOrdered By: Renard Burgos on 01-31-2022 Lymphocytes/100 WBC (Bld) 24.9 % 19-41 [facility] Blood monocytes/100 leukocyt esOrdered By: Renard Burgos on 01-31-2022 Monocytes/100 WBC (Bld) 9.2 % 0-10 [facility] Blood platelet mean volumeOr dered By: Renard Burgos on 01-31-2022 Platelet mean volume (Bld) [Entitic vol] 11.0 fL 6.2-12.0 [facility] Determination of erythrocyte mean corpuscular volume (MCV)Ordered By: Renard Burgos on 01-31-2022 MCV (RBC) [Entitic vol] 92.9 fL 80-94 [facility] Hematocrit Auto (Bld) [Volum e fraction]Ordered By: Renard Burgos on 01-31-2022 Hematocrit (Bld) [Volume fraction] 44.7 % 40-54 [facility] Laboratory - Hematology and Cell countsOrdered By: Renard Burgos on 01-31-2022 Erythrocyte distribution width (RBC) [Entitic vol] 42.9 fL 35.1-43.9 [facility] Erythrocyte distribution width (RBC) [Ratio] 12.6 % 11.6-14.6 [facility] Immature granulocytes/100 WBC (Bld) 0.500 % 0.0-0.9 [facility] Comment on above: IG% - Immature Granu locytes (promyelocytes, myelocytes and metamyelocytes) > 1% indicates that a LEFT SHIFT is Present. MCH (RBC) [Entitic mass] 31.0 pg 27.0-32.0 [facility] Nucleated RBC/100 WBC (Bld) [Ratio] 0 % 0-5 [facility] MCHC Auto (RBC) [Mass/Vol]Or dered By: Renard Burgos on 01-31-2022 MCHC (RBC) [Mass/Vol] 33.3 g/dL 32-36 [facility] Platelets bldOrdered By: Lyubov Burgos on 01-31-2022 Platelets (Bld) [#/Vol] 204 10*3/uL 150-450 [facility] Absolute lymphocyte countOrd ered By: Renard Burgos on 01-24-2022 Lymphocytes Auto (Unsp spec) [#/Vol] 1.82 10*3/uL 0.83-4.51 [facility] Basophil percentageOrdered B y: Renard Burgos on 01-24-2022 Basophils/100 WBC (Bld) 0.3 % 0-1 [facility] Eosinophils/100 WBC (Bld) 0.3 % 0-5 [facility] Neutrophils (Bld) [#/Vol] 6.1 10*3/uL 2.0-7.7 [facility] Neutrophils/100 WBC (Bld) 69.9 % 47-70 [facility] WBC (Bld) [#/Vol] 8.7 10*3/uL 4.4-11.0 [facility] Blood erythrocytes count (nu mber/volume)Ordered By: Renard Burgos on 01-24-2022 RBC (Bld) [#/Vol] 4.74 10*6/uL 4.6-6.2 [facility] Blood hemoglobin measurement (mass/volume)Ordered By: Renard Burgos on 01-24-2022 Hemoglobin (Bld) [Mass/Vol] 14.5 g/dL 13.0-16.5 [facility] Blood lymphocytes/100 leukoc ytesOrdered By: Renard Burgos on 01-24-2022 Lymphocytes/100 WBC (Bld) 20.9 % 19-41 [facility] Blood monocytes/100 leukocyt esOrdered By: Renard Burgos on 01-24-2022 Monocytes/100 WBC (Bld) 8.4 % 0-10 [facility] Blood platelet mean volumeOr dered By: Renard Burgos on 01-24-2022 Platelet mean volume (Bld) [Entitic vol] 10.9 fL 6.2-12.0 [facility] Determination of erythrocyte mean corpuscular volume (MCV)Ordered By: Renard Burgos on 01-24-2022 MCV (RBC) [Entitic vol] 92.0 fL 80-94 [facility] Hematocrit Auto (Bld) [Volum e fraction]Ordered By: Renard Burgos on 01-24-2022 Hematocrit (Bld) [Volume fraction] 43.6 % 40-54 [facility] Laboratory - Hematology and Cell countsOrdered By: Renard Burgos on 01-24-2022 Erythrocyte distribution width (RBC) [Entitic vol] 42.3 fL 35.1-43.9 [facility] Erythrocyte distribution width (RBC) [Ratio] 12.5 % 11.6-14.6 [facility] Immature granulocytes/100 WBC (Bld) 0.200 % 0.0-0.9 [facility] Comment on above: IG% - Immature Granu locytes (promyelocytes, myelocytes and metamyelocytes) > 1% indicates that a LEFT SHIFT is Present. MCH (RBC) [Entitic mass] 30.6 pg 27.0-32.0 [facility] Nucleated RBC/100 WBC (Bld) [Ratio] 0 % 0-5 [facility] MCHC Auto (RBC) [Mass/Vol]Or dered By: Renard Burgos on 01-24-2022 MCHC (RBC) [Mass/Vol] 33.3 g/dL 32-36 [facility] Platelets bldOrdered By: Pet lizy Burgos on 01-24-2022 Platelets (Bld) [#/Vol] 192 10*3/uL 150-450 [facility] Absolute lymphocyte counton 01-17-2022 Lymphocytes Auto (Unsp spec) [#/Vol] 1.89 10*3/uL 0.83-4.51 [facility] Work Phone: Basophil percentageon 2021 Basophils/100 WBC (Bld) 0.4 % 0-1 [facility] Work Phone: Eosinophils/100 WBC (Bld) 0.3 % 0-5 [facility] Work Phone: Neutrophils (Bld) [#/Vol] 4.4 10*3/uL 2.0-7.7 [facility] Work Phone: [phone] Neutrophils/100 WBC (Bld) 62.4 % 47-70 [facility] Work Phone: [phone] WBC (Bld) [#/Vol] 7.0 10*3/uL 4.4-11.0 [facility] Work Phone: Blood erythrocytes count (nu mber/volume)on 01-17-2022 RBC (Bld) [#/Vol] 4.64 10*6/uL 4.6-6.2 [facility] Work Phone: Blood hemoglobin measurement (mass/volume)on 01-17-2022 Hemoglobin (Bld) [Mass/Vol] 14.1 g/dL 13.0-16.5 [facility] Work Phone: Blood lymphocytes/100 leukoc yteson 01-17-2022 Lymphocytes/100 WBC (Bld) 27.0 % 19-41 [facility] Work Phone: Blood monocytes/100 leukocyt eson 01-17-2022 Monocytes/100 WBC (Bld) 9.3 % 0-10 [facility] Work Phone: Blood platelet mean volumeon 01-17-2022 Platelet mean volume (Bld) [Entitic vol] 11.1 fL 6.2-12.0 [facility] Work Phone: Determination of erythrocyte mean corpuscular volume (MCV)on 01-17-2022 MCV (RBC) [Entitic vol] 91.8 fL 80-94 [facility] Work Phone: Hematocrit Auto (Bld) [Volum e fraction]on 01-17-2022 Hematocrit (Bld) [Volume fraction] 42.6 % 40-54 [facility] Work Phone: Laboratory - Hematology and Cell countson 01-17-2022 Erythrocyte distribution width (RBC) [Entitic vol] 41.5 fL 35.1-43.9 [facility] Work Phone: Erythrocyte distribution width (RBC) [Ratio] 12.5 % 11.6-14.6 [facility] Work Phone: Immature granulocytes/100 WBC (Bld) 0.600 % 0.0-0.9 [facility] Work Phone: Comment on above: IG% - Immature Granu locytes (promyelocytes, myelocytes and metamyelocytes) > 1% indicates that a LEFT SHIFT is Present. MCH (RBC) [Entitic mass] 30.4 pg 27.0-32.0 [facility] Work Phone: Nucleated RBC/100 WBC (Bld) [Ratio] 0 % 0-5 [facility] Work Phone: MCHC Auto (RBC) [Mass/Vol]on 01-17-2022 MCHC (RBC) [Mass/Vol] 33.1 g/dL 32-36 [facility] Work Phone: Platelets bldon 01-17-2022 Platelets (Bld) [#/Vol] 200 10*3/uL 150-450 [facility] Work Phone: Absolute lymphocyte counton 01-10-2022 Lymphocytes Auto (Unsp spec) [#/Vol] 2.07 10*3/uL 0.83-4.51 [facility] Work Phone: Basophil percentageon 2021 Basophils/100 WBC (Bld) 0.6 % 0-1 [facility] Work Phone: [phone] Eosinophils/100 WBC (Bld) 0.3 % 0-5 [facility] Work Phone: [phone] Neutrophils (Bld) [#/Vol] 4.2 10*3/uL 2.0-7.7 [facility] Work Phone: Neutrophils/100 WBC (Bld) 59.2 % 47-70 [facility] Work Phone: WBC (Bld) [#/Vol] 7.0 10*3/uL 4.4-11.0 [facility] Work Phone: Blood erythrocytes count (nu mber/volume)on 01-10-2022 RBC (Bld) [#/Vol] 4.83 10*6/uL 4.6-6.2 [facility] Work Phone: Blood hemoglobin measurement (mass/volume)on 01-10-2022 Hemoglobin (Bld) [Mass/Vol] 14.8 g/dL 13.0-16.5 [facility] Work Phone: Blood lymphocytes/100 leukoc yteson 01-10-2022 Lymphocytes/100 WBC (Bld) 29.5 % 19-41 [facility] Work Phone: [phone] Blood monocytes/100 leukocyt eson 01-10-2022 Monocytes/100 WBC (Bld) 10.1 % 0-10 [facility] Work Phone: Blood platelet mean volumeon 01-10-2022 Platelet mean volume (Bld) [Entitic vol] 10.8 fL 6.2-12.0 [facility] Work Phone: Determination of erythrocyte mean corpuscular volume (MCV)on 01-10-2022 MCV (RBC) [Entitic vol] 97.5 fL 80-94 [facility] Work Phone: Hematocrit Auto (Bld) [Volum e fraction]on 01-10-2022 Hematocrit (Bld) [Volume fraction] 47.1 % 40-54 [facility] Work Phone: Laboratory - Hematology and Cell countson 01-10-2022 Erythrocyte distribution width (RBC) [Entitic vol] 44.9 fL 35.1-43.9 [facility] Work Phone: Erythrocyte distribution width (RBC) [Ratio] 12.7 % 11.6-14.6 [facility] Work Phone: Immature granulocytes/100 WBC (Bld) 0.300 % 0.0-0.9 [facility] Work Phone: Comment on above: IG% - Immature Granu locytes (promyelocytes, myelocytes and metamyelocytes) > 1% indicates that a LEFT SHIFT is Present. MCH (RBC) [Entitic mass] 30.6 pg 27.0-32.0 [facility] Work Phone: Nucleated RBC/100 WBC (Bld) [Ratio] 0 % 0-5 [facility] Work Phone: MCHC Auto (RBC) [Mass/Vol]on 01-10-2022 MCHC (RBC) [Mass/Vol] 31.4 g/dL 32-36 [facility] Work Phone: Platelets bldon 01-10-2022 Platelets (Bld) [#/Vol] 169 10*3/uL 150-450 [facility] Work Phone: Absolute lymphocyte counton 01-04-2022 Lymphocytes Auto (Unsp spec) [#/Vol] 1.84 10*3/uL 0.83-4.51 [facility] Work Phone: Basophil percentageon 2021 Basophils/100 WBC (Bld) 0.3 % 0-1 [facility] Work Phone: Eosinophils/100 WBC (Bld) 0.3 % 0-5 [facility] Work Phone: Neutrophils (Bld) [#/Vol] 4.8 10*3/uL 2.0-7.7 [facility] Work Phone: Neutrophils/100 WBC (Bld) 64.8 % 47-70 [facility] Work Phone: WBC (Bld) [#/Vol] 7.4 10*3/uL 4.4-11.0 [facility] Work Phone: Blood erythrocytes count (nu mber/volume)on 01-04-2022 RBC (Bld) [#/Vol] 4.67 10*6/uL 4.6-6.2 [facility] Work Phone: Blood hemoglobin measurement (mass/volume)on 01-04-2022 Hemoglobin (Bld) [Mass/Vol] 14.2 g/dL 13.0-16.5 [facility] Work Phone: Blood lymphocytes/100 leukoc yteson 01-04-2022 Lymphocytes/100 WBC (Bld) 25.0 % 19-41 [facility] Work Phone: Blood monocytes/100 leukocyt eson 01-04-2022 Monocytes/100 WBC (Bld) 9.1 % 0-10 [facility] Work Phone: Blood platelet mean volumeon 01-04-2022 Platelet mean volume (Bld) [Entitic vol] 11.0 fL 6.2-12.0 [facility] Work Phone: Determination of erythrocyte mean corpuscular volume (MCV)on 01-04-2022 MCV (RBC) [Entitic vol] 91.0 fL 80-94 [facility] Work Phone: Hematocrit Auto (Bld) [Volum e fraction]on 01-04-2022 Hematocrit (Bld) [Volume fraction] 42.5 % 40-54 [facility] Work Phone: Laboratory - Hematology and Cell countson 01-04-2022 Erythrocyte distribution width (RBC) [Entitic vol] 41.4 fL 35.1-43.9 [facility] Work Phone: Erythrocyte distribution width (RBC) [Ratio] 12.7 % 11.6-14.6 [facility] Work Phone: Immature granulocytes/100 WBC (Bld) 0.500 % 0.0-0.9 [facility] Work Phone: Comment on above: IG% - Immature Granu locytes (promyelocytes, myelocytes and metamyelocytes) > 1% indicates that a LEFT SHIFT is Present. MCH (RBC) [Entitic mass] 30.4 pg 27.0-32.0 [facility] Work Phone: Nucleated RBC/100 WBC (Bld) [Ratio] 0 % 0-5 [facility] Work Phone: MCHC Auto (RBC) [Mass/Vol]on 01-04-2022 MCHC (RBC) [Mass/Vol] 33.4 g/dL 32-36 [facility] Work Phone: Platelets bldon 01-04-2022 Platelets (Bld) [#/Vol] 184 10*3/uL 150-450 [facility] Work Phone: Absolute lymphocyte counton 12-27-2021 Lymphocytes Auto (Unsp spec) [#/Vol] 1.79 10*3/uL 0.83-4.51 [facility] Work Phone: Basophil percentageon 2021 Basophils/100 WBC (Bld) 0.4 % 0-1 [facility] Work Phone: Eosinophils/100 WBC (Bld) 0.4 % 0-5 [facility] Work Phone: Neutrophils (Bld) [#/Vol] 4.9 10*3/uL 2.0-7.7 [facility] Work Phone: Neutrophils/100 WBC (Bld) 65.2 % 47-70 [facility] Work Phone: WBC (Bld) [#/Vol] 7.6 10*3/uL 4.4-11.0 [facility] Work Phone: Blood erythrocytes count (nu mber/volume)on 12-27-2021 RBC (Bld) [#/Vol] 4.66 10*6/uL 4.6-6.2 [facility] Work Phone: Blood hemoglobin measurement (mass/volume)on 12-27-2021 Hemoglobin (Bld) [Mass/Vol] 14.5 g/dL 13.0-16.5 [facility] Work Phone: Blood lymphocytes/100 leukoc yteson 12-27-2021 Lymphocytes/100 WBC (Bld) 23.6 % 19-41 [facility] Work Phone: Blood monocytes/100 leukocyt eson 12-27-2021 Monocytes/100 WBC (Bld) 10.0 % 0-10 [facility] Work Phone: Blood platelet mean volumeon 12-27-2021 Platelet mean volume (Bld) [Entitic vol] 10.9 fL 6.2-12.0 [facility] Work Phone: Determination of erythrocyte mean corpuscular volume (MCV)on 12-27-2021 MCV (RBC) [Entitic vol] 91.0 fL 80-94 [facility] Work Phone: Hematocrit Auto (Bld) [Volum e fraction]on 12-27-2021 Hematocrit (Bld) [Volume fraction] 42.4 % 40-54 [facility] Work Phone: Laboratory - Hematology and Cell countson 12-27-2021 Erythrocyte distribution width (RBC) [Entitic vol] 41.2 fL 35.1-43.9 [facility] Work Phone: [phone] Erythrocyte distribution width (RBC) [Ratio] 12.6 % 11.6-14.6 [facility] Work Phone: Immature granulocytes/100 WBC (Bld) 0.400 % 0.0-0.9 [facility] Work Phone: Comment on above: IG% - Immature Granu locytes (promyelocytes, myelocytes and metamyelocytes) > 1% indicates that a LEFT SHIFT is Present. MCH (RBC) [Entitic mass] 31.1 pg 27.0-32.0 [facility] Work Phone: Nucleated RBC/100 WBC (Bld) [Ratio] 0 % 0-5 [facility] Work Phone: MCHC Auto (RBC) [Mass/Vol]on 12-27-2021 MCHC (RBC) [Mass/Vol] 34.2 g/dL 32-36 [facility] Work Phone: Platelets bldon 12-27-2021 Platelets (Bld) [#/Vol] 185 10*3/uL 150-450 [facility] Work Phone: Absolute lymphocyte counton 12-20-2021 Lymphocytes Auto (Unsp spec) [#/Vol] 2.02 10*3/uL 0.83-4.51 [facility] Work Phone: Basophil percentageon 2021 Basophils/100 WBC (Bld) 0.2 % 0-1 [facility] Work Phone: Eosinophils/100 WBC (Bld) 0.3 % 0-5 [facility] Work Phone: Neutrophils (Bld) [#/Vol] 3.6 10*3/uL 2.0-7.7 [facility] Work Phone: Neutrophils/100 WBC (Bld) 57.8 % 47-70 [facility] Work Phone: WBC (Bld) [#/Vol] 6.1 10*3/uL 4.4-11.0 [facility] Work Phone: Blood erythrocytes count (nu mber/volume)on 12-20-2021 RBC (Bld) [#/Vol] 4.81 10*6/uL 4.6-6.2 [facility] Work Phone: Blood hemoglobin measurement (mass/volume)on 12-20-2021 Hemoglobin (Bld) [Mass/Vol] 14.8 g/dL 13.0-16.5 [facility] Work Phone: Blood lymphocytes/100 leukoc yteson 12-20-2021 Lymphocytes/100 WBC (Bld) 32.9 % 19-41 [facility] Work Phone: Blood monocytes/100 leukocyt eson 12-20-2021 Monocytes/100 WBC (Bld) 8.3 % 0-10 [facility] Work Phone: Blood platelet adequacy dete ction by light microscopyon 12-20-2021 Platelets LM Ql (Bld) ADEQUATE ADEQ [facility] Work Phone: Blood platelet mean volumeon 12-20-2021 Platelet mean volume (Bld) [Entitic vol] 11.1 fL 6.2-12.0 [facility] Work Phone: Determination of erythrocyte mean corpuscular volume (MCV)on 12-20-2021 MCV (RBC) [Entitic vol] 93.1 fL 80-94 [facility] Work Phone: Hematocrit Auto (Bld) [Volum e fraction]on 12-20-2021 Hematocrit (Bld) [Volume fraction] 44.8 % 40-54 [facility] Work Phone: Laboratory - Hematology and Cell countson 12-20-2021 Erythrocyte distribution width (RBC) [Entitic vol] 42.4 fL 35.1-43.9 [facility] Work Phone: Erythrocyte distribution width (RBC) [Ratio] 12.4 % 11.6-14.6 [facility] Work Phone: Immature granulocytes/100 WBC (Bld) 0.500 % 0.0-0.9 [facility] Work Phone: Comment on above: IG% - Immature Granu locytes (promyelocytes, myelocytes and metamyelocytes) > 1% indicates that a LEFT SHIFT is Present. MCH (RBC) [Entitic mass] 30.8 pg 27.0-32.0 [facility] Work Phone: Nucleated RBC/100 WBC (Bld) [Ratio] 0 % 0-5 [facility] Work Phone: MCHC Auto (RBC) [Mass/Vol]on 12-20-2021 MCHC (RBC) [Mass/Vol] 33.0 g/dL 32-36 [facility] Work Phone: Platelets bldon 12-20-2021 Platelets (Bld) [#/Vol] See comment 150-450 [facility] Work Phone: Comment on above: Please note: [...] Auto (Unsp spec) [#/Vol] 1.88 10*3/uL 0.83-4.51 [facility] Work Phone: Basophil percentageon 2021 Basophils/100 WBC (Bld) 0.6 % 0-1 [facility] Work Phone: [phone] Eosinophils/100 WBC (Bld) 0.3 % 0-5 [facility] Work Phone: [phone] Neutrophils (Bld) [#/Vol] 4.5 10*3/uL 2.0-7.7 [facility] Work Phone: Neutrophils/100 WBC (Bld) 63.6 % 47-70 [facility] Work Phone: WBC (Bld) [#/Vol] 7.1 10*3/uL 4.4-11.0 [facility] Work Phone: Blood erythrocytes count (nu mber/volume)on 12-13-2021 RBC (Bld) [#/Vol] 4.70 10*6/uL 4.6-6.2 [facility] Work Phone: Blood hemoglobin measurement (mass/volume)on 12-13-2021 Hemoglobin (Bld) [Mass/Vol] 14.4 g/dL 13.0-16.5 [facility] Work Phone: Blood lymphocytes/100 leukoc yteson 12-13-2021 Lymphocytes/100 WBC (Bld) 26.7 % 19-41 [facility] Work Phone: Blood monocytes/100 leukocyt eson 12-13-2021 Monocytes/100 WBC (Bld) 8.5 % 0-10 [facility] Work Phone: Blood platelet mean volumeon 12-13-2021 Platelet mean volume (Bld) [Entitic vol] 10.9 fL 6.2-12.0 [facility] Work Phone: Determination of erythrocyte mean corpuscular volume (MCV)on 12-13-2021 MCV (RBC) [Entitic vol] 90.9 fL 80-94 [facility] Work Phone: Hematocrit Auto (Bld) [Volum e fraction]on 12-13-2021 Hematocrit (Bld) [Volume fraction] 42.7 % 40-54 [facility] Work Phone: Laboratory - Hematology and Cell countson 12-13-2021 Erythrocyte distribution width (RBC) [Entitic vol] 42.1 fL 35.1-43.9 [facility] Work Phone: Erythrocyte distribution width (RBC) [Ratio] 12.6 % 11.6-14.6 [facility] Work Phone: Immature granulocytes/100 WBC (Bld) 0.300 % 0.0-0.9 [facility] Work Phone: [phone] Comment on above: IG% - Immature Granu locytes (promyelocytes, myelocytes and metamyelocytes) > 1% indicates that a LEFT SHIFT is Present. MCH (RBC) [Entitic mass] 30.6 pg 27.0-32.0 [facility] Work Phone: [phone] Nucleated RBC/100 WBC (Bld) [Ratio] 0 % 0-5 [facility] Work Phone: [phone] MCHC Auto (RBC) [Mass/Vol]on 12-13-2021 MCHC (RBC) [Mass/Vol] 33.7 g/dL 32-36 [facility] Work Phone: [phone] Platelets bldon 12-13-2021 Platelets (Bld) [#/Vol] 194 10*3/uL 150-450 [facility] Work Phone: [phone] Absolute lymphocyte counton 12-06-2021 Lymphocytes Auto (Unsp spec) [#/Vol] 1.91 10*3/uL 0.83-4.51 [facility] Work Phone: [phone] Basophil percentageon 2021 Basophils/100 WBC (Bld) 0.4 % 0-1 [facility] Work Phone: [phone] Eosinophils/100 WBC (Bld) 0.3 % 0-5 [facility] Work Phone: Neutrophils (Bld) [#/Vol] 4.4 10*3/uL 2.0-7.7 [facility] Work Phone: Neutrophils/100 WBC (Bld) 62.2 % 47-70 [facility] Work Phone: WBC (Bld) [#/Vol] 7.0 10*3/uL 4.4-11.0 [facility] Work Phone: [phone] Blood erythrocytes count (nu mber/volume)on 12-06-2021 RBC (Bld) [#/Vol] 4.58 10*6/uL 4.6-6.2 [facility] Work Phone: Blood hemoglobin measurement (mass/volume)on 12-06-2021 Hemoglobin (Bld) [Mass/Vol] 13.8 g/dL 13.0-16.5 [facility] Work Phone: Blood lymphocytes/100 leukoc yteson 12-06-2021 Lymphocytes/100 WBC (Bld) 27.2 % 19-41 [facility] Work Phone: Blood monocytes/100 leukocyt eson 12-06-2021 Monocytes/100 WBC (Bld) 9.6 % 0-10 [facility] Work Phone: Blood platelet mean volumeon 12-06-2021 Platelet mean volume (Bld) [Entitic vol] 11.1 fL 6.2-12.0 [facility] Work Phone: Determination of erythrocyte mean corpuscular volume (MCV)on 12-06-2021 MCV (RBC) [Entitic vol] 92.1 fL 80-94 [facility] Work Phone: Hematocrit Auto (Bld) [Volum e fraction]on 12-06-2021 Hematocrit (Bld) [Volume fraction] 42.2 % 40-54 [facility] Work Phone: Laboratory - Hematology and Cell countson 12-06-2021 Erythrocyte distribution width (RBC) [Entitic vol] 42.1 fL 35.1-43.9 [facility] Work Phone: Erythrocyte distribution width (RBC) [Ratio] 12.6 % 11.6-14.6 [facility] Work Phone: Immature granulocytes/100 WBC (Bld) 0.300 % 0.0-0.9 [facility] Work Phone: Comment on above: IG% - Immature Granu locytes (promyelocytes, myelocytes and metamyelocytes) > 1% indicates that a LEFT SHIFT is Present. MCH (RBC) [Entitic mass] 30.1 pg 27.0-32.0 [facility] Work Phone: Nucleated RBC/100 WBC (Bld) [Ratio] 0 % 0-5 [facility] Work Phone: MCHC Auto (RBC) [Mass/Vol]on 12-06-2021 MCHC (RBC) [Mass/Vol] 32.7 g/dL 32-36 [facility] Work Phone: Platelets bldon 12-06-2021 Platelets (Bld) [#/Vol] 180 10*3/uL 150-450 [facility] Work Phone: Absolute lymphocyte counton 11-29-2021 Lymphocytes Auto (Unsp spec) [#/Vol] 2.00 10*3/uL 0.83-4.51 [facility] Work Phone: Basophil percentageon 2021 Basophils/100 WBC (Bld) 0.4 % 0-1 [facility] Work Phone: Eosinophils/100 WBC (Bld) 0.3 % 0-5 [facility] Work Phone: Neutrophils (Bld) [#/Vol] 4.4 10*3/uL 2.0-7.7 [facility] Work Phone: Neutrophils/100 WBC (Bld) 62.8 % 47-70 [facility] Work Phone: WBC (Bld) [#/Vol] 7.0 10*3/uL 4.4-11.0 [facility] Work Phone: Blood erythrocytes count (nu mber/volume)on 11-29-2021 RBC (Bld) [#/Vol] 4.72 10*6/uL 4.6-6.2 [facility] Work Phone: Blood hemoglobin measurement (mass/volume)on 11-29-2021 Hemoglobin (Bld) [Mass/Vol] 14.6 g/dL 13.0-16.5 [facility] Work Phone: Blood lymphocytes/100 leukoc yteson 11-29-2021 Lymphocytes/100 WBC (Bld) 28.6 % 19-41 [facility] Work Phone: Blood monocytes/100 leukocyt eson 11-29-2021 Monocytes/100 WBC (Bld) 7.6 % 0-10 [facility] Work Phone: Blood platelet mean volumeon 11-29-2021 Platelet mean volume (Bld) [Entitic vol] 11.1 fL 6.2-12.0 [facility] Work Phone: Determination of erythrocyte mean corpuscular volume (MCV)on 11-29-2021 MCV (RBC) [Entitic vol] 91.9 fL 80-94 [facility] Work Phone: Hematocrit Auto (Bld) [Volum e fraction]on 11-29-2021 Hematocrit (Bld) [Volume fraction] 43.4 % 40-54 [facility] Work Phone: Laboratory - Hematology and Cell countson 11-29-2021 Erythrocyte distribution width (RBC) [Entitic vol] 41.8 fL 35.1-43.9 [facility] Work Phone: Erythrocyte distribution width (RBC) [Ratio] 12.4 % 11.6-14.6 [facility] Work Phone: Immature granulocytes/100 WBC (Bld) 0.300 % 0.0-0.9 [facility] Work Phone: Comment on above: IG% - Immature Granu locytes (promyelocytes, myelocytes and metamyelocytes) > 1% indicates that a LEFT SHIFT is Present. MCH (RBC) [Entitic mass] 30.9 pg 27.0-32.0 [facility] Work Phone: Nucleated RBC/100 WBC (Bld) [Ratio] 0 % 0-5 [facility] Work Phone: MCHC Auto (RBC) [Mass/Vol]on 11-29-2021 MCHC (RBC) [Mass/Vol] 33.6 g/dL 32-36 [facility] Work Phone: Platelets bldon 11-29-2021 Platelets (Bld) [#/Vol] 205 10*3/uL 150-450 [facility] Work Phone: Absolute lymphocyte counton 11-22-2021 Lymphocytes Auto (Unsp spec) [#/Vol] 2.25 10*3/uL 0.83-4.51 [facility] Work Phone: Basophil percentageon 2021 Basophils/100 WBC (Bld) 0.4 % 0-1 [facility] Work Phone: Eosinophils/100 WBC (Bld) 0.4 % 0-5 [facility] Work Phone: [phone] Neutrophils (Bld) [#/Vol] 5.1 10*3/uL 2.0-7.7 [facility] Work Phone: Neutrophils/100 WBC (Bld) 61.7 % 47-70 [facility] Work Phone: WBC (Bld) [#/Vol] 8.3 10*3/uL 4.4-11.0 [facility] Work Phone: [phone] Blood erythrocytes count (nu mber/volume)on 11-22-2021 RBC (Bld) [#/Vol] 4.47 10*6/uL 4.6-6.2 [facility] Work Phone: [phone] Blood hemoglobin measurement (mass/volume)on 11-22-2021 Hemoglobin (Bld) [Mass/Vol] 13.5 g/dL 13.0-16.5 [facility] Work Phone: Blood lymphocytes/100 leukoc yteson 11-22-2021 Lymphocytes/100 WBC (Bld) 27.2 % 19-41 [facility] Work Phone: Blood monocytes/100 leukocyt eson 11-22-2021 Monocytes/100 WBC (Bld) 9.9 % 0-10 [facility] Work Phone: Blood platelet mean volumeon 11-22-2021 Platelet mean volume (Bld) [Entitic vol] 11.1 fL 6.2-12.0 [facility] Work Phone: Determination of erythrocyte mean corpuscular volume (MCV)on 11-22-2021 MCV (RBC) [Entitic vol] 92.2 fL 80-94 [facility] Work Phone: Hematocrit Auto (Bld) [Volum e fraction]on 11-22-2021 Hematocrit (Bld) [Volume fraction] 41.2 % 40-54 [facility] Work Phone: Laboratory - Hematology and Cell countson 11-22-2021 Erythrocyte distribution width (RBC) [Entitic vol] 42.3 fL 35.1-43.9 [facility] Work Phone: Erythrocyte distribution width (RBC) [Ratio] 12.6 % 11.6-14.6 [facility] Work Phone: Immature granulocytes/100 WBC (Bld) 0.400 % 0.0-0.9 [facility] Work Phone: Comment on above: IG% - Immature Granu locytes (promyelocytes, myelocytes and metamyelocytes) > 1% indicates that a LEFT SHIFT is Present. MCH (RBC) [Entitic mass] 30.2 pg 27.0-32.0 [facility] Work Phone: Nucleated RBC/100 WBC (Bld) [Ratio] 0 % 0-5 [facility] Work Phone: MCHC Auto (RBC) [Mass/Vol]on 11-22-2021 MCHC (RBC) [Mass/Vol] 32.8 g/dL 32-36 [facility] Work Phone: Platelets bldon 11-22-2021 Platelets (Bld) [#/Vol] 190 10*3/uL 150-450 [facility] Work Phone: Absolute lymphocyte counton 11-15-2021 Lymphocytes Auto (Unsp spec) [#/Vol] 2.09 10*3/uL 0.83-4.51 [facility] Work Phone: Basophil percentageon 2021 Basophils/100 WBC (Bld) 0.6 % 0-1 [facility] Work Phone: Eosinophils/100 WBC (Bld) 0.4 % 0-5 [facility] Work Phone: Neutrophils (Bld) [#/Vol] 4.2 10*3/uL 2.0-7.7 [facility] Work Phone: Neutrophils/100 WBC (Bld) 59.1 % 47-70 [facility] Work Phone: WBC (Bld) [#/Vol] 7.1 10*3/uL 4.4-11.0 [facility] Work Phone: Blood erythrocytes count (nu mber/volume)on 11-15-2021 RBC (Bld) [#/Vol] 4.72 10*6/uL 4.6-6.2 [facility] Work Phone: Blood hemoglobin measurement (mass/volume)on 11-15-2021 Hemoglobin (Bld) [Mass/Vol] 14.6 g/dL 13.0-16.5 [facility] Work Phone: Blood lymphocytes/100 leukoc yteson 11-15-2021 Lymphocytes/100 WBC (Bld) 29.4 % 19-41 [facility] Work Phone: Blood monocytes/100 leukocyt eson 11-15-2021 Monocytes/100 WBC (Bld) 10.1 % 0-10 [facility] Work Phone: Blood platelet mean volumeon 11-15-2021 Platelet mean volume (Bld) [Entitic vol] 10.7 fL 6.2-12.0 [facility] Work Phone: Determination of erythrocyte mean corpuscular volume (MCV)on 11-15-2021 MCV (RBC) [Entitic vol] 91.9 fL 80-94 [facility] Work Phone: Hematocrit Auto (Bld) [Volum e fraction]on 11-15-2021 Hematocrit (Bld) [Volume fraction] 43.4 % 40-54 [facility] Work Phone: Laboratory - Hematology and Cell countson 11-15-2021 Erythrocyte distribution width (RBC) [Entitic vol] 41.9 fL 35.1-43.9 [facility] Work Phone: Erythrocyte distribution width (RBC) [Ratio] 12.4 % 11.6-14.6 [facility] Work Phone: Immature granulocytes/100 WBC (Bld) 0.400 % 0.0-0.9 [facility] Work Phone: Comment on above: IG% - Immature Granu locytes (promyelocytes, myelocytes and metamyelocytes) > 1% indicates that a LEFT SHIFT is Present. MCH (RBC) [Entitic mass] 30.9 pg 27.0-32.0 [facility] Work Phone: Nucleated RBC/100 WBC (Bld) [Ratio] 0 % 0-5 [facility] Work Phone: MCHC Auto (RBC) [Mass/Vol]on 11-15-2021 MCHC (RBC) [Mass/Vol] 33.6 g/dL 32-36 [facility] Work Phone: Platelets bldon 11-15-2021 Platelets (Bld) [#/Vol] 191 10*3/uL 150-450 [facility] Work Phone: Absolute lymphocyte counton 11-08-2021 Lymphocytes Auto (Unsp spec) [#/Vol] 1.97 10*3/uL 0.83-4.51 [facility] Work Phone: Basophil percentageon 2021 Basophils/100 WBC (Bld) 0.3 % 0-1 [facility] Work Phone: Eosinophils/100 WBC (Bld) 0.3 % 0-5 [facility] Work Phone: Neutrophils (Bld) [#/Vol] 5.1 10*3/uL 2.0-7.7 [facility] Work Phone: Neutrophils/100 WBC (Bld) 64.6 % 47-70 [facility] Work Phone: WBC (Bld) [#/Vol] 7.8 10*3/uL 4.4-11.0 [facility] Work Phone: Blood erythrocytes count (nu mber/volume)on 11-08-2021 RBC (Bld) [#/Vol] 4.53 10*6/uL 4.6-6.2 [facility] Work Phone: Blood hemoglobin measurement (mass/volume)on 11-08-2021 Hemoglobin (Bld) [Mass/Vol] 14.2 g/dL 13.0-16.5 [facility] Work Phone: Blood lymphocytes/100 leukoc yteson 11-08-2021 Lymphocytes/100 WBC (Bld) 25.2 % 19-41 [facility] Work Phone: Blood monocytes/100 leukocyt eson 11-08-2021 Monocytes/100 WBC (Bld) 9.3 % 0-10 [facility] Work Phone: Blood platelet mean volumeon 11-08-2021 Platelet mean volume (Bld) [Entitic vol] 10.9 fL 6.2-12.0 [facility] Work Phone: Determination of erythrocyte mean corpuscular volume (MCV)on 11-08-2021 MCV (RBC) [Entitic vol] 92.7 fL 80-94 [facility] Work Phone: Hematocrit Auto (Bld) [Volum e fraction]on 11-08-2021 Hematocrit (Bld) [Volume fraction] 42.0 % 40-54 [facility] Work Phone: Laboratory - Hematology and Cell countson 11-08-2021 Erythrocyte distribution width (RBC) [Entitic vol] 42.3 fL 35.1-43.9 [facility] Work Phone: [phone] Erythrocyte distribution width (RBC) [Ratio] 12.5 % 11.6-14.6 [facility] Work Phone: [phone] Immature granulocytes/100 WBC (Bld) 0.300 % 0.0-0.9 [facility] Work Phone: Comment on above: IG% - Immature Granu locytes (promyelocytes, myelocytes and metamyelocytes) > 1% indicates that a LEFT SHIFT is Present. MCH (RBC) [Entitic mass] 31.3 pg 27.0-32.0 [facility] Work Phone: Nucleated RBC/100 WBC (Bld) [Ratio] 0 % 0-5 [facility] Work Phone: MCHC Auto (RBC) [Mass/Vol]on 11-08-2021 MCHC (RBC) [Mass/Vol] 33.8 g/dL 32-36 [facility] Work Phone: Platelets bldon 11-08-2021 Platelets (Bld) [#/Vol] 207 10*3/uL 150-450 [facility] Work Phone: Absolute lymphocyte counton 10-25-2021 Lymphocytes Auto (Unsp spec) [#/Vol] 2.05 10*3/uL 0.83-4.51 [facility] Work Phone: Basophil percentageon 2021 Basophils/100 WBC (Bld) 0.4 % 0-1 [facility] Work Phone: Eosinophils/100 WBC (Bld) 0.3 % 0-5 [facility] Work Phone: Neutrophils (Bld) [#/Vol] 4.2 10*3/uL 2.0-7.7 [facility] Work Phone: Neutrophils/100 WBC (Bld) 61.3 % 47-70 [facility] Work Phone: WBC (Bld) [#/Vol] 6.8 10*3/uL 4.4-11.0 [facility] Work Phone: Blood erythrocytes count (nu mber/volume)on 10-25-2021 RBC (Bld) [#/Vol] 4.56 10*6/uL 4.6-6.[facility] Work Phone: Blood hemoglobin measurement (mass/volume)on 10-25-2021 Hemoglobin (Bld) [Mass/Vol] 13.9 g/dL 13.0-16.5 [facility] Work Phone: Blood lymphocytes/100 leukoc yteson 10-25-2021 Lymphocytes/100 WBC (Bld) 30.1 % 19-41 [facility] Work Phone: Blood monocytes/100 leukocyt eson 10-25-2021 Monocytes/100 WBC (Bld) 7.3 % 0-10 [facility] Work Phone: Blood platelet mean volumeon 10-25-2021 Platelet mean volume (Bld) [Entitic vol] 10.6 fL 6.2-12.0 [facility] Work Phone: Determination of erythrocyte mean corpuscular volume (MCV)on 10-25-2021 MCV (RBC) [Entitic vol] 91.0 fL 80-94 [facility] Work Phone: Hematocrit Auto (Bld) [Volum e fraction]on 10-25-2021 Hematocrit (Bld) [Volume fraction] 41.5 % 40-54 [facility] Work Phone: Laboratory - Hematology and Cell countson 10-25-2021 Erythrocyte distribution width (RBC) [Entitic vol] 41.7 fL 35.1-43.9 [facility] Work Phone: Erythrocyte distribution width (RBC) [Ratio] 12.6 % 11.6-14.6 [facility] Work Phone: Immature granulocytes/100 WBC (Bld) 0.600 % 0.0-0.9 [facility] Work Phone: Comment on above: IG% - Immature Granu locytes (promyelocytes, myelocytes and metamyelocytes) > 1% indicates that a LEFT SHIFT is Present. MCH (RBC) [Entitic mass] 30.5 pg 27.0-32.0 [facility] Work Phone: Nucleated RBC/100 WBC (Bld) [Ratio] 0 % 0-5 [facility] Work Phone: [phone] MCHC Auto (RBC) [Mass/Vol]on 10-25-2021 MCHC (RBC) [Mass/Vol] 33.5 g/dL 32-36 [facility] Work Phone: Platelets bldon 10-25-2021 Platelets (Bld) [#/Vol] 191 10*3/uL 150-450 [facility] Work Phone: Absolute lymphocyte counton 10-18-2021 Lymphocytes Auto (Unsp spec) [#/Vol] 1.66 10*3/uL 0.83-4.51 [facility] Work Phone: Basophil percentageon 2021 Basophils/100 WBC (Bld) 0.5 % 0-1 [facility] Work Phone: Eosinophils/100 WBC (Bld) 0.2 % 0-5 [facility] Work Phone: Neutrophils (Bld) [#/Vol] 4.3 10*3/uL 2.0-7.7 [facility] Work Phone: Neutrophils/100 WBC (Bld) 65.0 % 47-70 [facility] Work Phone: WBC (Bld) [#/Vol] 6.6 10*3/uL 4.4-11.0 [facility] Work Phone: Blood erythrocytes count (nu mber/volume)on 10-18-2021 RBC (Bld) [#/Vol] 4.57 10*6/uL 4.6-6.2 [facility] Work Phone: Blood hemoglobin measurement (mass/volume)on 10-18-2021 Hemoglobin (Bld) [Mass/Vol] 14.1 g/dL 13.0-16.5 [facility] Work Phone: Blood lymphocytes/100 leukoc yteson 10-18-2021 Lymphocytes/100 WBC (Bld) 25.2 % 19-41 [facility] Work Phone: Blood monocytes/100 leukocyt eson 10-18-2021 Monocytes/100 WBC (Bld) 8.8 % 0-10 [facility] Work Phone: Blood platelet mean volumeon 10-18-2021 Platelet mean volume (Bld) [Entitic vol] 10.6 fL 6.2-12.0 [facility] Work Phone: Determination of erythrocyte mean corpuscular volume (MCV)on 10-18-2021 MCV (RBC) [Entitic vol] 91.7 fL 80-94 [facility] Work Phone: Hematocrit Auto (Bld) [Volum e fraction]on 10-18-2021 Hematocrit (Bld) [Volume fraction] 41.9 % 40-54 [facility] Work Phone: Laboratory - Hematology and Cell countson 10-18-2021 Erythrocyte distribution width (RBC) [Entitic vol] 41.6 fL 35.1-43.9 [facility] Work Phone: Erythrocyte distribution width (RBC) [Ratio] 12.5 % 11.6-14.6 [facility] Work Phone: Immature granulocytes/100 WBC (Bld) 0.300 % 0.0-0.9 [facility] Work Phone: Comment on above: IG% - Immature Granu locytes (promyelocytes, myelocytes and metamyelocytes) > 1% indicates that a LEFT SHIFT is Present. MCH (RBC) [Entitic mass] 30.9 pg 27.0-32.0 [facility] Work Phone: Nucleated RBC/100 WBC (Bld) [Ratio] 0 % 0-5 [facility] Work Phone: MCHC Auto (RBC) [Mass/Vol]on 10-18-2021 MCHC (RBC) [Mass/Vol] 33.7 g/dL 32-36 [facility] Work Phone: Platelets bldon 10-18-2021 Platelets (Bld) [#/Vol] 185 10*3/uL 150-450 [facility] Work Phone: Absolute lymphocyte counton 10-11-2021 Lymphocytes Auto (Unsp spec) [#/Vol] 1.66 10*3/uL 0.83-4.51 [facility] Work Phone: Basophil percentageon 2021 Basophils/100 WBC (Bld) 0.5 % 0-1 [facility] Work Phone: Eosinophils/100 WBC (Bld) 0.1 % 0-5 [facility] Work Phone: Neutrophils (Bld) [#/Vol] 5.9 10*3/uL 2.0-7.7 [facility] Work Phone: Neutrophils/100 WBC (Bld) 70.8 % 47-70 [facility] Work Phone: WBC (Bld) [#/Vol] 8.3 10*3/uL 4.4-11.0 [facility] Work Phone: [phone] Blood erythrocytes count (nu mber/volume)on 10-11-2021 RBC (Bld) [#/Vol] 4.66 10*6/uL 4.6-6.2 [facility] Work Phone: [phone] Blood hemoglobin measurement (mass/volume)on 10-11-2021 Hemoglobin (Bld) [Mass/Vol] 14.1 g/dL 13.0-16.5 [facility] Work Phone: Blood lymphocytes/100 leukoc yteson 10-11-2021 Lymphocytes/100 WBC (Bld) 20.0 % 19-41 [facility] Work Phone: Blood monocytes/100 leukocyt eson 10-11-2021 Monocytes/100 WBC (Bld) 8.2 % 0-10 [facility] Work Phone: Blood platelet mean volumeon 10-11-2021 Platelet mean volume (Bld) [Entitic vol] 10.7 fL 6.2-12.0 [facility] Work Phone: Determination of erythrocyte mean corpuscular volume (MCV)on 10-11-2021 MCV (RBC) [Entitic vol] 91.8 fL 80-94 [facility] Work Phone: Hematocrit Auto (Bld) [Volum e fraction]on 10-11-2021 Hematocrit (Bld) [Volume fraction] 42.8 % 40-54 [facility] Work Phone: Laboratory - Hematology and Cell countson 10-11-2021 Erythrocyte distribution width (RBC) [Entitic vol] 42.8 fL 35.1-43.9 [facility] Work Phone: Erythrocyte distribution width (RBC) [Ratio] 12.8 % 11.6-14.6 [facility] Work Phone: Immature granulocytes/100 WBC (Bld) 0.400 % 0.0-0.9 [facility] Work Phone: Comment on above: IG% - Immature Granu locytes (promyelocytes, myelocytes and metamyelocytes) > 1% indicates that a LEFT SHIFT is Present. MCH (RBC) [Entitic mass] 30.3 pg 27.0-32.0 [facility] Work Phone: Nucleated RBC/100 WBC (Bld) [Ratio] 0 % 0-5 [facility] Work Phone: MCHC Auto (RBC) [Mass/Vol]on 10-11-2021 MCHC (RBC) [Mass/Vol] 32.9 g/dL 32-36 [facility] Work Phone: [phone] Platelets bldon 10-11-2021 Platelets (Bld) [#/Vol] 193 10*3/uL 150-450 [facility] Work Phone: Absolute lymphocyte counton 10-04-2021 Lymphocytes Auto (Unsp spec) [#/Vol] 1.97 10*3/uL 0.83-4.51 [facility] Work Phone: [phone] Basophil percentageon 2021 Basophils/100 WBC (Bld) 0.5 % 0-1 [facility] Work Phone: [phone] Eosinophils/100 WBC (Bld) 0.1 % 0-5 [facility] Work Phone: [phone] Neutrophils (Bld) [#/Vol] 5.0 10*3/uL 2.0-7.7 [facility] Work Phone: [phone] Neutrophils/100 WBC (Bld) 64.4 % 47-70 [facility] Work Phone: [phone] WBC (Bld) [#/Vol] 7.7 10*3/uL 4.4-11.0 [facility] Work Phone: Blood erythrocytes count (nu mber/volume)on 10-04-2021 RBC (Bld) [#/Vol] 4.52 10*6/uL 4.6-6.2 [facility] Work Phone: [phone] Blood hemoglobin measurement (mass/volume)on 10-04-2021 Hemoglobin (Bld) [Mass/Vol] 13.9 g/dL 13.0-16.5 [facility] Work Phone: [phone] Blood lymphocytes/100 leukoc yteson 10-04-2021 Lymphocytes/100 WBC (Bld) 25.6 % 19-41 [facility] Work Phone: Blood monocytes/100 leukocyt eson 10-04-2021 Monocytes/100 WBC (Bld) 9.0 % 0-10 [facility] Work Phone: Blood platelet mean volumeon 10-04-2021 Platelet mean volume (Bld) [Entitic vol] 11.0 fL 6.2-12.0 [facility] Work Phone: Determination of erythrocyte mean corpuscular volume (MCV)on 10-04-2021 MCV (RBC) [Entitic vol] 91.4 fL 80-94 [facility] Work Phone: Hematocrit Auto (Bld) [Volum e fraction]on 10-04-2021 Hematocrit (Bld) [Volume fraction] 41.3 % 40-54 [facility] Work Phone: Laboratory - Hematology and Cell countson 10-04-2021 Erythrocyte distribution width (RBC) [Entitic vol] 42.2 fL 35.1-43.9 [facility] Work Phone: Erythrocyte distribution width (RBC) [Ratio] 12.8 % 11.6-14.6 [facility] Work Phone: Immature granulocytes/100 WBC (Bld) 0.400 % 0.0-0.9 [facility] Work Phone: Comment on above: IG% - Immature Granu locytes (promyelocytes, myelocytes and metamyelocytes) > 1% indicates that a LEFT SHIFT is Present. MCH (RBC) [Entitic mass] 30.8 pg 27.0-32.0 [facility] Work Phone: Nucleated RBC/100 WBC (Bld) [Ratio] 0 % 0-5 [facility] Work Phone: MCHC Auto (RBC) [Mass/Vol]on 10-04-2021 MCHC (RBC) [Mass/Vol] 33.7 g/dL 32-36 [facility] Work Phone: Platelets bldon 10-04-2021 Platelets (Bld) [#/Vol] 179 10*3/uL 150-450 [facility] Work Phone: [phone] Absolute lymphocyte counton 09-28-2021 Lymphocytes Auto (Unsp spec) [#/Vol] 2.10 10*3/uL 0.83-4.51 [facility] Work Phone: [phone] Basophil percentageon 2021 Basophils/100 WBC (Bld) 0.4 % 0-1 [facility] Work Phone: Eosinophils/100 WBC (Bld) 0.3 % 0-5 [facility] Work Phone: [phone] Neutrophils (Bld) [#/Vol] 4.3 10*3/uL 2.0-7.7 [facility] Work Phone: [phone] Neutrophils/100 WBC (Bld) 59.9 % 47-70 [facility] Work Phone: [phone] WBC (Bld) [#/Vol] 7.2 10*3/uL 4.4-11.0 [facility] Work Phone: Blood erythrocytes count (nu mber/volume)on 09-28-2021 RBC (Bld) [#/Vol] 4.34 10*6/uL 4.6-6.2 [facility] Work Phone: Blood hemoglobin measurement (mass/volume)on 09-28-2021 Hemoglobin (Bld) [Mass/Vol] 13.3 g/dL 13.0-16.5 [facility] Work Phone: [phone] Blood lymphocytes/100 leukoc yteson 09-28-2021 Lymphocytes/100 WBC (Bld) 29.3 % 19-41 [facility] Work Phone: [phone] Blood monocytes/100 leukocyt eson 09-28-2021 Monocytes/100 WBC (Bld) 9.8 % 0-10 [facility] Work Phone: Blood platelet mean volumeon 09-28-2021 Platelet mean volume (Bld) [Entitic vol] 10.7 fL 6.2-12.0 [facility] Work Phone: Determination of erythrocyte mean corpuscular volume (MCV)on 09-28-2021 MCV (RBC) [Entitic vol] 91.2 fL 80-94 [facility] Work Phone: Hematocrit Auto (Bld) [Volum e fraction]on 09-28-2021 Hematocrit (Bld) [Volume fraction] 39.6 % 40-54 [facility] Work Phone: Laboratory - Hematology and Cell countson 09-28-2021 Erythrocyte distribution width (RBC) [Entitic vol] 41.8 fL 35.1-43.9 [facility] Work Phone: Erythrocyte distribution width (RBC) [Ratio] 12.6 % 11.6-14.6 [facility] Work Phone: Immature granulocytes/100 WBC (Bld) 0.300 % 0.0-0.9 [facility] Work Phone: Comment on above: IG% - Immature Granu locytes (promyelocytes, myelocytes and metamyelocytes) > 1% indicates that a LEFT SHIFT is Present. MCH (RBC) [Entitic mass] 30.6 pg 27.0-32.0 [facility] Work Phone: Nucleated RBC/100 WBC (Bld) [Ratio] 0 % 0-5 [facility] Work Phone: MCHC Auto (RBC) [Mass/Vol]on 09-28-2021 MCHC (RBC) [Mass/Vol] 33.6 g/dL 32-36 [facility] Work Phone: Platelets bldon 09-28-2021 Platelets (Bld) [#/Vol] 181 10*3/uL 150-450 [facility] Work Phone: Absolute lymphocyte counton 09-20-2021 Lymphocytes Auto (Unsp spec) [#/Vol] 1.79 10*3/uL 0.83-4.51 [facility] Work Phone: Basophil percentageon 2021 Basophils/100 WBC (Bld) 0.4 % 0-1 [facility] Work Phone: Eosinophils/100 WBC (Bld) 0.3 % 0-5 [facility] Work Phone: Neutrophils (Bld) [#/Vol] 4.1 10*3/uL 2.0-7.7 [facility] Work Phone: Neutrophils/100 WBC (Bld) 61.3 % 47-70 [facility] Work Phone: WBC (Bld) [#/Vol] 6.7 10*3/uL 4.4-11.0 [facility] Work Phone: Blood erythrocytes count (nu mber/volume)on 09-20-2021 RBC (Bld) [#/Vol] 4.32 10*6/uL 4.6-6.2 [facility] Work Phone: Blood hemoglobin measurement (mass/volume)on 09-20-2021 Hemoglobin (Bld) [Mass/Vol] 13.6 g/dL 13.0-16.5 [facility] Work Phone: Blood lymphocytes/100 leukoc yteson 09-20-2021 Lymphocytes/100 WBC (Bld) 26.8 % 19-41 [facility] Work Phone: Blood monocytes/100 leukocyt eson 09-20-2021 Monocytes/100 WBC (Bld) 10.8 % 0-10 [facility] Work Phone: Blood platelet mean volumeon 09-20-2021 Platelet mean volume (Bld) [Entitic vol] 10.7 fL 6.2-12.0 [facility] Work Phone: Determination of erythrocyte mean corpuscular volume (MCV)on 09-20-2021 MCV (RBC) [Entitic vol] 93.1 fL 80-94 [facility] Work Phone: Hematocrit Auto (Bld) [Volum e fraction]on 09-20-2021 Hematocrit (Bld) [Volume fraction] 40.2 % 40-54 [facility] Work Phone: Laboratory - Hematology and Cell countson 09-20-2021 Erythrocyte distribution width (RBC) [Entitic vol] 43.0 fL 35.1-43.9 [facility] Work Phone: Erythrocyte distribution width (RBC) [Ratio] 12.6 % 11.6-14.6 [facility] Work Phone: Immature granulocytes/100 WBC (Bld) 0.400 % 0.0-0.9 [facility] Work Phone: Comment on above: IG% - Immature Granu locytes (promyelocytes, myelocytes and metamyelocytes) > 1% indicates that a LEFT SHIFT is Present. MCH (RBC) [Entitic mass] 31.5 pg 27.0-32.0 [facility] Work Phone: Nucleated RBC/100 WBC (Bld) [Ratio] 0 % 0-5 [facility] Work Phone: MCHC Auto (RBC) [Mass/Vol]on 09-20-2021 MCHC (RBC) [Mass/Vol] 33.8 g/dL 32-36 [facility] Work Phone: Platelets bldon 09-20-2021 Platelets (Bld) [#/Vol] 170 10*3/uL 150-450 [facility] Work Phone: Absolute lymphocyte counton 09-13-2021 Lymphocytes Auto (Unsp spec) [#/Vol] 1.85 10*3/uL 0.83-4.51 [facility] Work Phone: Basophil percentageon 2021 Basophils/100 WBC (Bld) 0.6 % 0-1 [facility] Work Phone: Eosinophils/100 WBC (Bld) 0.3 % 0-5 [facility] Work Phone: Neutrophils (Bld) [#/Vol] 4.3 10*3/uL 2.0-7.7 [facility] Work Phone: Neutrophils/100 WBC (Bld) 63.1 % 47-70 [facility] Work Phone: WBC (Bld) [#/Vol] 6.7 10*3/uL 4.4-11.0 [facility] Work Phone: Blood erythrocytes count (nu mber/volume)on 09-13-2021 RBC (Bld) [#/Vol] 4.63 10*6/uL 4.6-6.2 [facility] Work Phone: Blood hemoglobin measurement (mass/volume)on 09-13-2021 Hemoglobin (Bld) [Mass/Vol] 14.2 g/dL 13.0-16.5 [facility] Work Phone: Blood lymphocytes/100 leukoc yteson 09-13-2021 Lymphocytes/100 WBC (Bld) 27.5 % 19-41 [facility] Work Phone: Blood monocytes/100 leukocyt eson 09-13-2021 Monocytes/100 WBC (Bld) 8.2 % 0-10 [facility] Work Phone: Blood platelet mean volumeon 09-13-2021 Platelet mean volume (Bld) [Entitic vol] 11.0 fL 6.2-12.0 [facility] Work Phone: Determination of erythrocyte mean corpuscular volume (MCV)on 09-13-2021 MCV (RBC) [Entitic vol] 93.5 fL 80-94 [facility] Work Phone: Hematocrit Auto (Bld) [Volum e fraction]on 09-13-2021 Hematocrit (Bld) [Volume fraction] 43.3 % 40-54 [facility] Work Phone: Laboratory - Hematology and Cell countson 09-13-2021 Erythrocyte distribution width (RBC) [Entitic vol] 43.0 fL 35.1-43.9 [facility] Work Phone: Erythrocyte distribution width (RBC) [Ratio] 12.6 % 11.6-14.6 [facility] Work Phone: Immature granulocytes/100 WBC (Bld) 0.300 % 0.0-0.9 [facility] Work Phone: Comment on above: IG% - Immature Granu locytes (promyelocytes, myelocytes and metamyelocytes) > 1% indicates that a LEFT SHIFT is Present. MCH (RBC) [Entitic mass] 30.7 pg 27.0-32.0 [facility] Work Phone: Nucleated RBC/100 WBC (Bld) [Ratio] 0 % 0-5 [facility] Work Phone: MCHC Auto (RBC) [Mass/Vol]on 09-13-2021 MCHC (RBC) [Mass/Vol] 32.8 g/dL 32-36 [facility] Work Phone: Platelets bldon 09-13-2021 Platelets (Bld) [#/Vol] 188 10*3/uL 150-450 [facility] Work Phone: Absolute lymphocyte counton 09-06-2021 Lymphocytes Auto (Unsp spec) [#/Vol] 1.86 10*3/uL 0.83-4.51 [facility] Work Phone: Basophil percentageon 2021 Basophils/100 WBC (Bld) 0.7 % 0-1 [facility] Work Phone: Eosinophils/100 WBC (Bld) 0.3 % 0-5 [facility] Work Phone: Neutrophils (Bld) [#/Vol] 4.4 10*3/uL 2.0-7.7 [facility] Work Phone: Neutrophils/100 WBC (Bld) 62.6 % 47-70 [facility] Work Phone: WBC (Bld) [#/Vol] 7.0 10*3/uL 4.4-11.0 [facility] Work Phone: Blood erythrocytes count (nu mber/volume)on 09-06-2021 RBC (Bld) [#/Vol] 4.51 10*6/uL 4.6-6.2 [facility] Work Phone: Blood hemoglobin measurement (mass/volume)on 09-06-2021 Hemoglobin (Bld) [Mass/Vol] 13.8 g/dL 13.0-16.5 [facility] Work Phone: Blood lymphocytes/100 leukoc yteson 09-06-2021 Lymphocytes/100 WBC (Bld) 26.5 % 19-41 [facility] Work Phone: Blood monocytes/100 leukocyt eson 09-06-2021 Monocytes/100 WBC (Bld) 9.5 % 0-10 [facility] Work Phone: Blood platelet mean volumeon 09-06-2021 Platelet mean volume (Bld) [Entitic vol] 10.7 fL 6.2-12.0 [facility] Work Phone: Determination of erythrocyte mean corpuscular volume (MCV)on 09-06-2021 MCV (RBC) [Entitic vol] 92.9 fL 80-94 [facility] Work Phone: Hematocrit Auto (Bld) [Volum e fraction]on 09-06-2021 Hematocrit (Bld) [Volume fraction] 41.9 % 40-54 [facility] Work Phone: Laboratory - Hematology and Cell countson 09-06-2021 Erythrocyte distribution width (RBC) [Entitic vol] 43.0 fL 35.1-43.9 [facility] Work Phone: Erythrocyte distribution width (RBC) [Ratio] 12.7 % 11.6-14.6 [facility] Work Phone: Immature granulocytes/100 WBC (Bld) 0.400 % 0.0-0.9 [facility] Work Phone: Comment on above: IG% - Immature Granu locytes (promyelocytes, myelocytes and metamyelocytes) > 1% indicates that a LEFT SHIFT is Present. MCH (RBC) [Entitic mass] 30.6 pg 27.0-32.0 [facility] Work Phone: Nucleated RBC/100 WBC (Bld) [Ratio] 0 % 0-5 [facility] Work Phone: MCHC Auto (RBC) [Mass/Vol]on 09-06-2021 MCHC (RBC) [Mass/Vol] 32.9 g/dL 32-36 [facility] Work Phone: Platelets bldon 09-06-2021 Platelets (Bld) [#/Vol] 189 10*3/uL 150-450 [facility] Work Phone: [phone] Absolute lymphocyte counton 08-30-2021 Lymphocytes Auto (Unsp spec) [#/Vol] 1.44 10*3/uL 0.83-4.51 [facility] Work Phone: Basophil percentageon 2021 Basophils/100 WBC (Bld) 0.3 % 0-1 [facility] Work Phone: Eosinophils/100 WBC (Bld) 0.2 % 0-5 [facility] Work Phone: Neutrophils (Bld) [#/Vol] 9.6 10*3/uL 2.0-7.7 [facility] Work Phone: Neutrophils/100 WBC (Bld) 80.4 % 47-70 [facility] Work Phone: WBC (Bld) [#/Vol] 12.0 10*3/uL 4.4-11.0 [facility] Work Phone: Blood erythrocytes count (nu mber/volume)on 08-30-2021 RBC (Bld) [#/Vol] 4.52 10*6/uL 4.6-6.2 [facility] Work Phone: Blood hemoglobin measurement (mass/volume)on 08-30-2021 Hemoglobin (Bld) [Mass/Vol] 13.9 g/dL 13.0-16.5 [facility] Work Phone: Blood lymphocytes/100 leukoc yteson 08-30-2021 Lymphocytes/100 WBC (Bld) 12.0 % 19-41 [facility] Work Phone: Blood monocytes/100 leukocyt eson 08-30-2021 Monocytes/100 WBC (Bld) 6.7 % 0-10 [facility] Work Phone: Blood platelet mean volumeon 08-30-2021 Platelet mean volume (Bld) [Entitic vol] 11.3 fL 6.2-12.0 [facility] Work Phone: Determination of erythrocyte mean corpuscular volume (MCV)on 08-30-2021 MCV (RBC) [Entitic vol] 92.7 fL 80-94 [facility] Work Phone: Hematocrit Auto (Bld) [Volum e fraction]on 08-30-2021 Hematocrit (Bld) [Volume fraction] 41.9 % 40-54 [facility] Work Phone: Laboratory - Hematology and Cell countson 08-30-2021 Erythrocyte distribution width (RBC) [Entitic vol] 42.6 fL 35.1-43.9 [facility] Work Phone: Erythrocyte distribution width (RBC) [Ratio] 12.6 % 11.6-14.6 [facility] Work Phone: Immature granulocytes/100 WBC (Bld) 0.400 % 0.0-0.9 [facility] Work Phone: Comment on above: IG% - Immature Granu locytes (promyelocytes, myelocytes and metamyelocytes) > 1% indicates that a LEFT SHIFT is Present. MCH (RBC) [Entitic mass] 30.8 pg 27.0-32.0 [facility] Work Phone: [phone] Nucleated RBC/100 WBC (Bld) [Ratio] 0 % 0-5 [facility] Work Phone: MCHC Auto (RBC) [Mass/Vol]on 08-30-2021 MCHC (RBC) [Mass/Vol] 33.2 g/dL 32-36 [facility] Work Phone: Platelets bldon 08-30-2021 Platelets (Bld) [#/Vol] 200 10*3/uL 150-450 [facility] Work Phone: Absolute lymphocyte counton 08-23-2021 Lymphocytes Auto (Unsp spec) [#/Vol] 1.91 10*3/uL 0.83-4.51 [facility] Work Phone: Basophil percentageon 2021 Basophils/100 WBC (Bld) 0.4 % 0-1 [facility] Work Phone: Eosinophils/100 WBC (Bld) 0.3 % 0-5 [facility] Work Phone: Neutrophils (Bld) [#/Vol] 4.2 10*3/uL 2.0-7.7 [facility] Work Phone: Neutrophils/100 WBC (Bld) 62.3 % 47-70 [facility] Work Phone: WBC (Bld) [#/Vol] 6.8 10*3/uL 4.4-11.0 [facility] Work Phone: Blood erythrocytes count (nu mber/volume)on 08-23-2021 RBC (Bld) [#/Vol] 4.46 10*6/uL 4.6-6.2 [facility] Work Phone: Blood hemoglobin measurement (mass/volume)on 08-23-2021 Hemoglobin (Bld) [Mass/Vol] 13.7 g/dL 13.0-16.5 [facility] Work Phone: Blood lymphocytes/100 leukoc yteson 08-23-2021 Lymphocytes/100 WBC (Bld) 28.3 % 19-41 [facility] Work Phone: Blood monocytes/100 leukocyt eson 08-23-2021 Monocytes/100 WBC (Bld) 8.1 % 0-10 [facility] Work Phone: Blood platelet mean volumeon 08-23-2021 Platelet mean volume (Bld) [Entitic vol] 10.6 fL 6.2-12.0 [facility] Work Phone: Determination of erythrocyte mean corpuscular volume (MCV)on 08-23-2021 MCV (RBC) [Entitic vol] 93.0 fL 80-94 [facility] Work Phone: Hematocrit Auto (Bld) [Volum e fraction]on 08-23-2021 Hematocrit (Bld) [Volume fraction] 41.5 % 40-54 [facility] Work Phone: Laboratory - Hematology and Cell countson 08-23-2021 Erythrocyte distribution width (RBC) [Entitic vol] 42.4 fL 35.1-43.9 [facility] Work Phone: Erythrocyte distribution width (RBC) [Ratio] 12.5 % 11.6-14.6 [facility] Work Phone: Immature granulocytes/100 WBC (Bld) 0.600 % 0.0-0.9 [facility] Work Phone: Comment on above: IG% - Immature Granu locytes (promyelocytes, myelocytes and metamyelocytes) > 1% indicates that a LEFT SHIFT is Present. MCH (RBC) [Entitic mass] 30.7 pg 27.0-32.0 [facility] Work Phone: Nucleated RBC/100 WBC (Bld) [Ratio] 0 % 0-5 [facility] Work Phone: MCHC Auto (RBC) [Mass/Vol]on 08-23-2021 MCHC (RBC) [Mass/Vol] 33.0 g/dL 32-36 [facility] Work Phone: Platelets bldon 08-23-2021 Platelets (Bld) [#/Vol] 198 10*3/uL 150-450 [facility] Work Phone: Basophil percentageon 2021 Basophil percentage 0 SEEN /hpf 0-5 [facility] [place] Work Phone: Bilirubin Test strip Ql (U)o n 08-18-2021 Bilirubin Ql (U) Negative Negative [facility] Work Phone: Culture, urineon 08-18-2021 Bacteria identified Cx Nom (U) Culture exhibits no growth. [facility] Work Phone: Ketones Test strip Ql (U)on 08-18-2021 Ketones Ql (U) Negative Negative [facility] Work Phone: Mucus LM Ql (Urine sed)on Mucus Ql (Urine sed) 0 SEEN /hpf [facility] Work Phone: Nitrite Test strip Ql (U)on 08-18-2021 Nitrite Ql (U) Negative Negative [facility] Work Phone: Protein Test strip Ql (U)on 08-18-2021 Protein Ql (U) Negative Negative [facility] Work Phone: Squamous epithelial cells de tection in urine sediment by light microscopyon 08-18-2021 Epithelial cells.squamous LM Ql (Urine sed) 0 SEEN /hpf 0-5 [facility] Work Phone: Urine blood detectionon - RBC Ql (U) Negative Negative [facility] Work Phone: RBC Ql (U) 0 SEEN /hpf 0-5 [facility] Work Phone: Urine clarityon 08-18-2021 Clarity (U) Clear Clear [facility] Work Phone: Urine color determinationon 08-18-2021 Color (U) Yellow Yellow [facility] Work Phone: Urine glucose detectionon Glucose Ql (U) Normal mg/dl Normal [facility] Work Phone: Urine leukocyte esterase det ection by dipstickon 08-18-2021 Leukocyte esterase Test strip Ql (U) Negative Negative [facility] Work Phone: Urine pHon 08-18-2021 pH (U) 7.0 [pH] 5.0 - 8.0 [facility] Work Phone: Urine sediment bacteria coun t by microscopy (number/high power field)on 08-18-2021 Bacteria LM.HPF (Urine sed) [#/Area] 0 /[HPF] None Seen [facility] Work Phone: Urine specific gravity measu rementon 08-18-2021 Specific gravity (U) [Rel density] 1.010 1.002-1.030 [facility] Work Phone: Urobilinogen Auto test strip Ql (U)on 08-18-2021 Urobilinogen Ql (U) 4 mg/dl Normal [facility] Work Phone: Absolute lymphocyte counton 08-16-2021 Lymphocytes Auto (Unsp spec) [#/Vol] 1.71 10*3/uL 0.83-4.51 [facility] Work Phone: Basophil percentageon 2021 Basophils/100 WBC (Bld) 0.3 % 0-1 [facility] Work Phone: Eosinophils/100 WBC (Bld) 0.2 % 0-5 [facility] Work Phone: Neutrophils (Bld) [#/Vol] 8.6 10*3/uL 2.0-7.7 [facility] Work Phone: Neutrophils/100 WBC (Bld) 76.8 % 47-70 [facility] Work Phone: WBC (Bld) [#/Vol] 11.2 10*3/uL 4.4-11.0 [facility] Work Phone: Blood erythrocytes count (nu mber/volume)on 08-16-2021 RBC (Bld) [#/Vol] 4.42 10*6/uL 4.6-6.2 [facility] Work Phone: Blood hemoglobin measurement (mass/volume)on 08-16-2021 Hemoglobin (Bld) [Mass/Vol] 13.4 g/dL 13.0-16.5 [facility] Work Phone: Blood lymphocytes/100 leukoc yteson 08-16-2021 Lymphocytes/100 WBC (Bld) 15.2 % 19-41 [facility] Work Phone: Blood monocytes/100 leukocyt eson 08-16-2021 Monocytes/100 WBC (Bld) 7.1 % 0-10 [facility] Work Phone: Blood platelet mean volumeon 08-16-2021 Platelet mean volume (Bld) [Entitic vol] 11.0 fL 6.2-12.0 [facility] Work Phone: Determination of erythrocyte mean corpuscular volume (MCV)on 08-16-2021 MCV (RBC) [Entitic vol] 91.9 fL 80-94 [facility] Work Phone: Hematocrit Auto (Bld) [Volum e fraction]on 08-16-2021 Hematocrit (Bld) [Volume fraction] 40.6 % 40-54 [facility] Work Phone: Laboratory - Hematology and Cell countson 08-16-2021 Erythrocyte distribution width (RBC) [Entitic vol] 43.0 fL 35.1-43.9 [facility] Work Phone: Erythrocyte distribution width (RBC) [Ratio] 12.7 % 11.6-14.6 [facility] Work Phone: Immature granulocytes/100 WBC (Bld) 0.400 % 0.0-0.9 [facility] Work Phone: Comment on above: IG% - Immature Granu locytes (promyelocytes, myelocytes and metamyelocytes) > 1% indicates that a LEFT SHIFT is Present. MCH (RBC) [Entitic mass] 30.3 pg 27.0-32.0 [facility] Work Phone: Nucleated RBC/100 WBC (Bld) [Ratio] 0 % 0-5 [facility] Work Phone: MCHC Auto (RBC) [Mass/Vol]on 08-16-2021 MCHC (RBC) [Mass/Vol] 33.0 g/dL 32-36 [facility] Work Phone: Platelets bldon 08-16-2021 Platelets (Bld) [#/Vol] 187 10*3/uL 150-450 [facility] Work Phone: Absolute lymphocyte counton 08-09-2021 Lymphocytes Auto (Unsp spec) [#/Vol] 1.78 10*3/uL 0.83-4.51 [facility] Work Phone: Basophil percentageon 2021 Basophils/100 WBC (Bld) 0.5 % 0-1 [facility] Work Phone: Eosinophils/100 WBC (Bld) 0.1 % 0-5 [facility] Work Phone: Neutrophils (Bld) [#/Vol] 6.0 10*3/uL 2.0-7.7 [facility] Work Phone: Neutrophils/100 WBC (Bld) 71.3 % 47-70 [facility] Work Phone: WBC (Bld) [#/Vol] 8.4 10*3/uL 4.4-11.0 [facility] Work Phone: [phone] Blood erythrocytes count (nu mber/volume)on 08-09-2021 RBC (Bld) [#/Vol] 4.37 10*6/uL 4.6-6.2 [facility] Work Phone: [phone] Blood hemoglobin measurement (mass/volume)on 08-09-2021 Hemoglobin (Bld) [Mass/Vol] 13.5 g/dL 13.0-16.5 [facility] Work Phone: Blood lymphocytes/100 leukoc yteson 08-09-2021 Lymphocytes/100 WBC (Bld) 21.2 % 19-41 [facility] Work Phone: Blood monocytes/100 leukocyt eson 08-09-2021 Monocytes/100 WBC (Bld) 6.5 % 0-10 [facility] Work Phone: Blood platelet mean volumeon 08-09-2021 Platelet mean volume (Bld) [Entitic vol] 11.1 fL 6.2-12.0 [facility] Work Phone: Determination of erythrocyte mean corpuscular volume (MCV)on 08-09-2021 MCV (RBC) [Entitic vol] 91.3 fL 80-94 [facility] Work Phone: Hematocrit Auto (Bld) [Volum e fraction]on 08-09-2021 Hematocrit (Bld) [Volume fraction] 39.9 % 40-54 [facility] Work Phone: Laboratory - Hematology and Cell countson 08-09-2021 Erythrocyte distribution width (RBC) [Entitic vol] 41.4 fL 35.1-43.9 [facility] Work Phone: Erythrocyte distribution width (RBC) [Ratio] 12.5 % 11.6-14.6 [facility] Work Phone: Immature granulocytes/100 WBC (Bld) 0.400 % 0.0-0.9 [facility] Work Phone: Comment on above: IG% - Immature Granu locytes (promyelocytes, myelocytes and metamyelocytes) > 1% indicates that a LEFT SHIFT is Present. MCH (RBC) [Entitic mass] 30.9 pg 27.0-32.0 [facility] Work Phone: Nucleated RBC/100 WBC (Bld) [Ratio] 0 % 0-5 [facility] Work Phone: MCHC Auto (RBC) [Mass/Vol]on 08-09-2021 MCHC (RBC) [Mass/Vol] 33.8 g/dL 32-36 [facility] Work Phone: Platelets bldon 08-09-2021 Platelets (Bld) [#/Vol] 177 10*3/uL 150-450 [facility] Work Phone: Absolute lymphocyte counton 08-02-2021 Lymphocytes Auto (Unsp spec) [#/Vol] 1.69 10*3/uL 0.83-4.51 [facility] Work Phone: Basophil percentageon 2021 Basophils/100 WBC (Bld) 0.3 % 0-1 [facility] Work Phone: Eosinophils/100 WBC (Bld) 0.3 % 0-5 [facility] Work Phone: Neutrophils (Bld) [#/Vol] 3.8 10*3/uL 2.0-7.7 [facility] Work Phone: Neutrophils/100 WBC (Bld) 61.9 % 47-70 [facility] Work Phone: [phone] WBC (Bld) [#/Vol] 6.1 10*3/uL 4.4-11.0 [facility] Work Phone: Blood erythrocytes count (nu mber/volume)on 08-02-2021 RBC (Bld) [#/Vol] 4.54 10*6/uL 4.6-6.2 [facility] Work [facility]: Blood hemoglobin measurement (mass/volume)on 08-02-2021 Hemoglobin (Bld) [Mass/Vol] 13.8 g/dL 13.0-16.5 [facility] Work Phone: [phone] Blood lymphocytes/100 leukoc yteson 08-02-2021 Lymphocytes/100 WBC (Bld) 27.7 % 19-41 [facility] Work Phone: Blood monocytes/100 leukocyt eson 08-02-2021 Monocytes/100 WBC (Bld) 9.5 % 0-10 [facility] Work Phone: Blood platelet mean volumeon 08-02-2021 Platelet mean volume (Bld) [Entitic vol] 11.2 fL 6.2-12.0 [facility] Work Phone: Determination of erythrocyte mean corpuscular volume (MCV)on 08-02-2021 MCV (RBC) [Entitic vol] 90.1 fL 80-94 [facility] Work Phone: Hematocrit Auto (Bld) [Volum e fraction]on 08-02-2021 Hematocrit (Bld) [Volume fraction] 40.9 % 40-54 [facility] Work Phone: Laboratory - Hematology and Cell countson 08-02-2021 Erythrocyte distribution width (RBC) [Entitic vol] 40.3 fL 35.1-43.9 [facility] Work Phone: Erythrocyte distribution width (RBC) [Ratio] 12.4 % 11.6-14.6 [facility] Work Phone: Immature granulocytes/100 WBC (Bld) 0.300 % 0.0-0.9 [facility] Work Phone: Comment on above: IG% - Immature Granu locytes (promyelocytes, myelocytes and metamyelocytes) > 1% indicates that a LEFT SHIFT is Present. MCH (RBC) [Entitic mass] 30.4 pg 27.0-32.0 [facility] Work Phone: Nucleated RBC/100 WBC (Bld) [Ratio] 0 % 0-5 [facility] Work Phone: MCHC Auto (RBC) [Mass/Vol]on 08-02-2021 MCHC (RBC) [Mass/Vol] 33.7 g/dL 32-36 [facility] Work Phone: Platelets bldon 08-02-2021 Platelets (Bld) [#/Vol] 192 10*3/uL 150-450 [facility] Work Phone: Absolute lymphocyte counton 07-26-2021 Lymphocytes Auto (Unsp spec) [#/Vol] 1.83 10*3/uL 0.83-4.51 [facility] Work Phone: Basophil percentageon 2021 Basophils/100 WBC (Bld) 0.5 % 0-1 [facility] Work Phone: [phone] Eosinophils/100 WBC (Bld) 0.3 % 0-5 [facility] Work Phone: [phone] Neutrophils (Bld) [#/Vol] 3.3 10*3/uL 2.0-7.7 [facility] Work Phone: [phone] Neutrophils/100 WBC (Bld) 58.1 % 47-70 [facility] Work Phone: WBC (Bld) [#/Vol] 5.7 10*3/uL 4.4-11.0 [facility] Work Phone: Blood erythrocytes count (nu mber/volume)on 07-26-2021 RBC (Bld) [#/Vol] 4.21 10*6/uL 4.6-6.2 [facility] Work Phone: Blood hemoglobin measurement (mass/volume)on 07-26-2021 Hemoglobin (Bld) [Mass/Vol] 12.9 g/dL 13.0-16.5 [facility] Work Phone: [phone] Blood lymphocytes/100 leukoc yteson 07-26-2021 Lymphocytes/100 WBC (Bld) 31.9 % 19-41 [facility] Work Phone: [phone] Blood monocytes/100 leukocyt eson 07-26-2021 Monocytes/100 WBC (Bld) 8.9 % 0-10 [facility] Work Phone: Blood platelet mean volumeon 07-26-2021 Platelet mean volume (Bld) [Entitic vol] 11.5 fL 6.2-12.0 [facility] Work Phone: Determination of erythrocyte mean corpuscular volume (MCV)on 07-26-2021 MCV (RBC) [Entitic vol] 90.7 fL 80-94 [facility] Work Phone: Hematocrit Auto (Bld) [Volum e fraction]on 07-26-2021 Hematocrit (Bld) [Volume fraction] 38.2 % 40-54 [facility] Work Phone: Laboratory - Hematology and Cell countson 07-26-2021 Erythrocyte distribution width (RBC) [Entitic vol] 41.2 fL 35.1-43.9 [facility] Work Phone: Erythrocyte distribution width (RBC) [Ratio] 12.5 % 11.6-14.6 [facility] Work Phone: Immature granulocytes/100 WBC (Bld) 0.300 % 0.0-0.9 [facility] Work Phone: Comment on above: IG% - Immature Granu locytes (promyelocytes, myelocytes and metamyelocytes) > 1% indicates that a LEFT SHIFT is Present. MCH (RBC) [Entitic mass] 30.6 pg 27.0-32.0 [facility] Work Phone: Nucleated RBC/100 WBC (Bld) [Ratio] 0 % 0-5 [facility] Work Phone: MCHC Auto (RBC) [Mass/Vol]on 07-26-2021 MCHC (RBC) [Mass/Vol] 33.8 g/dL 32-36 [facility] Work Phone: Platelets bldon 07-26-2021 Platelets (Bld) [#/Vol] 180 10*3/uL 150-450 [facility] Work Phone: Absolute lymphocyte counton 07-19-2021 Lymphocytes Auto (Unsp spec) [#/Vol] 2.04 10*3/uL 0.83-4.51 [facility] Work Phone: Basophil percentageon 2021 Basophils/100 WBC (Bld) 0.3 % 0-1 [facility] Work Phone: Eosinophils/100 WBC (Bld) 0.4 % 0-5 [facility] Work Phone: [phone] Neutrophils (Bld) [#/Vol] 4.0 10*3/uL 2.0-7.7 [facility] Work Phone: Neutrophils/100 WBC (Bld) 59.2 % 47-70 [facility] Work Phone: WBC (Bld) [#/Vol] 6.7 10*3/uL 4.4-11.0 [facility] Work Phone: Blood erythrocytes count (nu mber/volume)on 07-19-2021 RBC (Bld) [#/Vol] 4.53 10*6/uL 4.6-6.2 [facility] Work Phone: Blood hemoglobin measurement (mass/volume)on 07-19-2021 Hemoglobin (Bld) [Mass/Vol] 14.1 g/dL 13.0-16.5 [facility] Work Phone: Blood lymphocytes/100 leukoc yteson 07-19-2021 Lymphocytes/100 WBC (Bld) 30.5 % 19-41 [facility] Work Phone: Blood monocytes/100 leukocyt eson 07-19-2021 Monocytes/100 WBC (Bld) 9.0 % 0-10 [facility] Work Phone: Blood platelet mean volumeon 07-19-2021 Platelet mean volume (Bld) [Entitic vol] 11.4 fL 6.2-12.0 [facility] Work Phone: Determination of erythrocyte mean corpuscular volume (MCV)on 07-19-2021 MCV (RBC) [Entitic vol] 90.5 fL 80-94 [facility] Work Phone: Hematocrit Auto (Bld) [Volum e fraction]on 07-19-2021 Hematocrit (Bld) [Volume fraction] 41.0 % 40-54 [facility] Work Phone: Laboratory - Hematology and Cell countson 07-19-2021 Erythrocyte distribution width (RBC) [Entitic vol] 41.1 fL 35.1-43.9 [facility] Work Phone: Erythrocyte distribution width (RBC) [Ratio] 12.5 % 11.6-14.6 [facility] Work Phone: Immature granulocytes/100 WBC (Bld) 0.600 % 0.0-0.9 [facility] Work Phone: Comment on above: IG% - Immature Granu locytes (promyelocytes, myelocytes and metamyelocytes) > 1% indicates that a LEFT SHIFT is Present. MCH (RBC) [Entitic mass] 31.1 pg 27.0-32.0 [facility] Work Phone: Nucleated RBC/100 WBC (Bld) [Ratio] 0 % 0-5 [facility] Work Phone: MCHC Auto (RBC) [Mass/Vol]on 07-19-2021 MCHC (RBC) [Mass/Vol] 34.4 g/dL 32-36 [facility] Work Phone: Platelets bldon 07-19-2021 Platelets (Bld) [#/Vol] 193 10*3/uL 150-450 [facility] Work Phone: Absolute lymphocyte counton 07-12-2021 Lymphocytes Auto (Unsp spec) [#/Vol] 1.42 10*3/uL 0.83-4.51 [facility] Work Phone: Basophil percentageon 2021 Basophils/100 WBC (Bld) 0.6 % 0-1 [facility] Work Phone: Eosinophils/100 WBC (Bld) 0.3 % 0-5 [facility] Work Phone: Neutrophils (Bld) [#/Vol] 4.7 10*3/uL 2.0-7.7 [facility] Work Phone: Neutrophils/100 WBC (Bld) 67.3 % 47-70 [facility] Work Phone: WBC (Bld) [#/Vol] 7.0 10*3/uL 4.4-11.0 [facility] Work Phone: Blood erythrocytes count (nu mber/volume)on 07-12-2021 RBC (Bld) [#/Vol] 4.61 10*6/uL 4.6-6.2 [facility] Work Phone: Blood hemoglobin measurement (mass/volume)on 07-12-2021 Hemoglobin (Bld) [Mass/Vol] 14.4 g/dL 13.0-16.5 [facility] Work Phone: Blood lymphocytes/100 leukoc yteson 07-12-2021 Lymphocytes/100 WBC (Bld) 20.4 % 19-41 [facility] Work Phone: Blood monocytes/100 leukocyt eson 07-12-2021 Monocytes/100 WBC (Bld) 11.1 % 0-10 [facility] Work Phone: Blood platelet mean volumeon 07-12-2021 Platelet mean volume (Bld) [Entitic vol] 11.2 fL 6.2-12.0 [facility] Work Phone: Determination of erythrocyte mean corpuscular volume (MCV)on 07-12-2021 MCV (RBC) [Entitic vol] 91.1 fL 80-94 [facility] Work Phone: Hematocrit Auto (Bld) [Volum e fraction]on 07-12-2021 Hematocrit (Bld) [Volume fraction] 42.0 % 40-54 [facility] Work Phone: Laboratory - Hematology and Cell countson 07-12-2021 Erythrocyte distribution width (RBC) [Entitic vol] 41.4 fL 35.1-43.9 [facility] Work Phone: Erythrocyte distribution width (RBC) [Ratio] 12.6 % 11.6-14.6 [facility] Work Phone: Immature granulocytes/100 WBC (Bld) 0.300 % 0.0-0.9 [facility] Work Phone: Comment on above: IG% - Immature Granu locytes (promyelocytes, myelocytes and metamyelocytes) > 1% indicates that a LEFT SHIFT is Present. MCH (RBC) [Entitic mass] 31.2 pg 27.0-32.0 [facility] Work Phone: Nucleated RBC/100 WBC (Bld) [Ratio] 0 % 0-5 [facility] Work Phone: [phone] MCHC Auto (RBC) [Mass/Vol]on 07-12-2021 MCHC (RBC) [Mass/Vol] 34.3 g/dL 32-36 [facility] Work Phone: Platelets bldon 07-12-2021 Platelets (Bld) [#/Vol] 184 10*3/uL 150-450 [facility] Work Phone: Absolute lymphocyte counton 07-05-2021 Lymphocytes Auto (Unsp spec) [#/Vol] 1.55 10*3/uL 0.83-4.51 [facility] Work Phone: Basophil percentageon 2021 Basophils/100 WBC (Bld) 0.4 % 0-1 [facility] Work Phone: Cholesterol [Mass/Vol] 148 mg/dL <200 [facility] Work Phone: Comment on above: <200 mg/dL Desirable 200-240 mg/dL Borderline >240 mg/dL High Risk Eosinophils/100 WBC (Bld) 0.3 % 0-5 [facility] Work Phone: Neutrophils (Bld) [#/Vol] 5.5 10*3/uL 2.0-7.7 [facility] Work Phone: Neutrophils/100 WBC (Bld) 70.9 % 47-70 [facility] Work Phone: Triglyceride [Mass/Vol] 201 mg/dL <199 [facility] Work Phone: Comment on above: The drugs N-Acetylcy steine and Metamizole may falsely depress this assay.Serum Triglycerides Reference Interval Normal <150 mg/dL Borderline high 150 - 199 mg/dL High 200 - 499 mg/dL Very High > or = 500 mg/dL WBC (Bld) [#/Vol] 7.8 10*3/uL 4.4-11.0 [facility] Work Phone: Blood erythrocytes count (nu mber/volume)on 07-05-2021 RBC (Bld) [#/Vol] 4.46 10*6/uL 4.6-6.2 [facility] Work Phone: Blood hemoglobin measurement (mass/volume)on 07-05-2021 Hemoglobin (Bld) [Mass/Vol] 13.4 g/dL 13.0-16.5 [facility] Work Phone: Blood lymphocytes/100 leukoc yteson 07-05-2021 Lymphocytes/100 WBC (Bld) 20.0 % 19-41 [facility] Work Phone: Blood monocytes/100 leukocyt eson 07-05-2021 Monocytes/100 WBC (Bld) 8.1 % 0-10 [facility] Work Phone: Blood platelet mean volumeon 07-05-2021 Platelet mean volume (Bld) [Entitic vol] 11.7 fL 6.2-12.0 [facility] Work Phone: Determination of erythrocyte mean corpuscular volume (MCV)on 07-05-2021 MCV (RBC) [Entitic vol] 91.0 fL 80-94 [facility] Work Phone: Hematocrit Auto (Bld) [Volum e fraction]on 07-05-2021 Hematocrit (Bld) [Volume fraction] 40.6 % 40-54 [facility] Work Phone: Laboratory - Hematology and Cell countson 07-05-2021 Erythrocyte distribution width (RBC) [Entitic vol] 41.9 fL 35.1-43.9 [facility] Work Phone: Erythrocyte distribution width (RBC) [Ratio] 12.8 % 11.6-14.6 [facility] Work Phone: Immature granulocytes/100 WBC (Bld) 0.300 % 0.0-0.9 [facility] Work Phone: Comment on above: IG% - Immature Granu locytes (promyelocytes, myelocytes and metamyelocytes) > 1% indicates that a LEFT SHIFT is Present. MCH (RBC) [Entitic mass] 30.0 pg 27.0-32.0 [facility] Work Phone: Nucleated RBC/100 WBC (Bld) [Ratio] 0 % 0-5 [facility] Work Phone: MCHC Auto (RBC) [Mass/Vol]on 07-05-2021 MCHC (RBC) [Mass/Vol] 33.0 g/dL 32-36 [facility] Work Phone: Platelets bldon 07-05-2021 Platelets (Bld) [#/Vol] 186 10*3/uL 150-450 [facility] Work Phone: Serum or plasma cholesterol in HDL measurement (mass/volume)on 07-05-2021 Cholesterol in HDL [Mass/Vol] 30 mg/dL >40 [facility] Work Phone: Comment on above: The drugs N-Acetylcy steine and Metamizole may falsely depress this assay. Reference Range HDL <40 mg/dL Low HDL Cholesterol HDL >or= 60 mg/dL High HDL Cholesterol Serum or plasma cholesterol in VLDL measurement (mass/volume)on 07-05-2021 Cholesterol in VLDL [Mass/Vol] 40 mg/dL 5-40 [facility] Work Phone: Serum or plasma low density lipoprotein (LDL) cholesterol measurement (mass/volume)on 07-05-2021 Cholesterol in LDL [Mass/Vol] 78 mg/dL 0-130 [facility] Work Phone: Absolute lymphocyte counton 06-28-2021 Lymphocytes Auto (Unsp spec) [#/Vol] 2.01 10*3/uL 0.83-4.51 [facility] Work Phone: Basophil percentageon 2021 Basophils/100 WBC (Bld) 0.5 % 0-1 [facility] Work Phone: Eosinophils/100 WBC (Bld) 0.3 % 0-5 [facility] Work Phone: Neutrophils (Bld) [#/Vol] 3.3 10*3/uL 2.0-7.7 [facility] Work Phone: Neutrophils/100 WBC (Bld) 55.5 % 47-70 [facility] Work Phone: WBC (Bld) [#/Vol] 6.0 10*3/uL 4.4-11.0 [facility] Work Phone: Blood erythrocytes count (nu mber/volume)on 06-28-2021 RBC (Bld) [#/Vol] 4.32 10*6/uL 4.6-6.2 [facility] Work Phone: Blood hemoglobin measurement (mass/volume)on 06-28-2021 Hemoglobin (Bld) [Mass/Vol] 13.5 g/dL 13.0-16.5 [facility] Work Phone: [phone] Blood lymphocytes/100 leukoc yteson 06-28-2021 Lymphocytes/100 WBC (Bld) 33.5 % 19-41 [facility] Work Phone: Blood monocytes/100 leukocyt eson 06-28-2021 Monocytes/100 WBC (Bld) 10.0 % 0-10 [facility] Work Phone: Blood platelet mean volumeon 06-28-2021 Platelet mean volume (Bld) [Entitic vol] 11.8 fL 6.2-12.0 [facility] Work Phone: Determination of erythrocyte mean corpuscular volume (MCV)on 06-28-2021 MCV (RBC) [Entitic vol] 89.8 fL 80-94 [facility] Work Phone: Hematocrit Auto (Bld) [Volum e fraction]on 06-28-2021 Hematocrit (Bld) [Volume fraction] 38.8 % 40-54 [facility] Work Phone: Laboratory - Hematology and Cell countson 06-28-2021 Erythrocyte distribution width (RBC) [Entitic vol] 40.6 fL 35.1-43.9 [facility] Work Phone: Erythrocyte distribution width (RBC) [Ratio] 12.5 % 11.6-14.6 [facility] Work Phone: Immature granulocytes/100 WBC (Bld) 0.200 % 0.0-0.9 [facility] Work Phone: Comment on above: IG% - Immature Granu locytes (promyelocytes, myelocytes and metamyelocytes) > 1% indicates that a LEFT SHIFT is Present. MCH (RBC) [Entitic mass] 31.3 pg 27.0-32.0 [facility] Work Phone: Nucleated RBC/100 WBC (Bld) [Ratio] 0 % 0-5 [facility] Work Phone: MCHC Auto (RBC) [Mass/Vol]on 06-28-2021 MCHC (RBC) [Mass/Vol] 34.8 g/dL 32-36 [facility] Work Phone: Platelets bldon 06-28-2021 Platelets (Bld) [#/Vol] 185 10*3/uL 150-450 [facility] Work Phone: Absolute lymphocyte counton 06-21-2021 Lymphocytes Auto (Unsp spec) [#/Vol] 1.78 10*3/uL 0.83-4.51 [facility] Work Phone: Basophil percentageon 2021 Basophils/100 WBC (Bld) 0.3 % 0-1 [facility] Work Phone: Eosinophils/100 WBC (Bld) 0.4 % 0-5 [facility] Work Phone: Neutrophils (Bld) [#/Vol] 4.2 10*3/uL 2.0-7.7 [facility] Work Phone: Neutrophils/100 WBC (Bld) 62.7 % 47-70 [facility] Work Phone: WBC (Bld) [#/Vol] 6.8 10*3/uL 4.4-11.0 [facility] Work Phone: Blood erythrocytes count (nu mber/volume)on 06-21-2021 RBC (Bld) [#/Vol] 4.21 10*6/uL 4.6-6.2 [facility] Work Phone: Blood hemoglobin measurement (mass/volume)on 06-21-2021 Hemoglobin (Bld) [Mass/Vol] 13.3 g/dL 13.0-16.5 [facility] Work Phone: [phone] Blood lymphocytes/100 leukoc yteson 06-21-2021 Lymphocytes/100 WBC (Bld) 26.3 % 19-41 [facility] Work Phone: [phone] Blood monocytes/100 leukocyt eson 06-21-2021 Monocytes/100 WBC (Bld) 9.9 % 0-10 [facility] Work Phone: Blood platelet mean volumeon 06-21-2021 Platelet mean volume (Bld) [Entitic vol] 11.5 fL 6.2-12.0 [facility] Work Phone: Determination of erythrocyte mean corpuscular volume (MCV)on 06-21-2021 MCV (RBC) [Entitic vol] 91.0 fL 80-94 [facility] Work Phone: Hematocrit Auto (Bld) [Volum e fraction]on 06-21-2021 Hematocrit (Bld) [Volume fraction] 38.3 % 40-54 [facility] Work Phone: Laboratory - Hematology and Cell countson 06-21-2021 Erythrocyte distribution width (RBC) [Entitic vol] 40.2 fL 35.1-43.9 [facility] Work Phone: Erythrocyte distribution width (RBC) [Ratio] 12.2 % 11.6-14.6 [facility] Work Phone: Immature granulocytes/100 WBC (Bld) 0.400 % 0.0-0.9 [facility] Work Phone: Comment on above: IG% - Immature Granu locytes (promyelocytes, myelocytes and metamyelocytes) > 1% indicates that a LEFT SHIFT is Present. MCH (RBC) [Entitic mass] 31.6 pg 27.0-32.0 [facility] Work Phone: Nucleated RBC/100 WBC (Bld) [Ratio] 0 % 0-5 [facility] Work Phone: MCHC Auto (RBC) [Mass/Vol]on 06-21-2021 MCHC (RBC) [Mass/Vol] 34.7 g/dL 32-36 [facility] Work Phone: Platelets bldon 06-21-2021 Platelets (Bld) [#/Vol] 217 10*3/uL 150-450 [facility] Work Phone: Absolute lymphocyte counton 06-14-2021 Lymphocytes Auto (Unsp spec) [#/Vol] 1.41 10*3/uL 0.83-4.51 [facility] Work Phone: Basophil percentageon 2021 Basophils/100 WBC (Bld) 0.4 % 0-1 [facility] Work Phone: Chloride [Moles/Vol] 106 mmol/L 98-107 [facility] [place] Work Phone: Eosinophils/100 WBC (Bld) 0.6 % 0-5 [facility] Work Phone: Glucose [Mass/Vol] 121 mg/dL 74-106 [facility] Work Phone: Comment on above: Fasting Glucose resu lt from 100 to 125 mg/dL suggests IMPAIRED HOMEOSTASIS per A.D.A. criteria. Neutrophils (Bld) [#/Vol] 4.8 10*3/uL 2.0-7.7 [facility] Work Phone: Neutrophils/100 WBC (Bld) 69.9 % 47-70 [facility] Work Phone: Potassium [Moles/Vol] 3.7 mmol/L 3.5-5.1 [facility] Work Phone: [phone] Sodium [Moles/Vol] 140 mmol/L 136-145 [facility] Work Phone: WBC (Bld) [#/Vol] 6.8 10*3/uL 4.4-11.0 [facility] Work Phone: Blood erythrocytes count (nu mber/volume)on 06-14-2021 RBC (Bld) [#/Vol] 4.78 10*6/uL 4.6-6.2 [facility] Work Phone: Blood hemoglobin measurement (mass/volume)on 06-14-2021 Hemoglobin (Bld) [Mass/Vol] 14.9 g/dL 13.0-16.5 [facility] Work Phone: Blood lymphocytes/100 leukoc yteson 06-14-2021 Lymphocytes/100 WBC (Bld) 20.8 % 19-41 [facility] Work Phone: Blood monocytes/100 leukocyt eson 06-14-2021 Monocytes/100 WBC (Bld) 7.7 % 0-10 [facility] Work Phone: Blood platelet mean volumeon 06-14-2021 Platelet mean volume (Bld) [Entitic vol] 11.5 fL 6.2-12.0 [facility] Work Phone: Determination of erythrocyte mean corpuscular volume (MCV)on 06-14-2021 MCV (RBC) [Entitic vol] 89.5 fL 80-94 [facility] Work Phone: Hematocrit Auto (Bld) [Volum e fraction]on 06-14-2021 Hematocrit (Bld) [Volume fraction] 42.8 % 40-54 [facility] Work Phone: Laboratory - Chemistry and C hemistry - challengeon 06-14-2021 CO2 [Moles/Vol] 27.0 mmol/L 21.0-32.0 [facility] Work Phone: Urea nitrogen/Creatinine [Mass ratio] 35.0 mg/mg 10-20 [facility] Work Phone: Laboratory - Hematology and Cell countson 06-14-2021 Erythrocyte distribution width (RBC) [Entitic vol] 39.3 fL 35.1-43.9 [facility] Work Phone: Erythrocyte distribution width (RBC) [Ratio] 12.0 % 11.6-14.6 [facility] Work Phone: Immature granulocytes/100 WBC (Bld) 0.600 % 0.0-0.9 [facility] Work Phone: Comment on above: IG% - Immature Granu locytes (promyelocytes, myelocytes and metamyelocytes) > 1% indicates that a LEFT SHIFT is Present. MCH (RBC) [Entitic mass] 31.2 pg 27.0-32.0 [facility] Work Phone: Nucleated RBC/100 WBC (Bld) [Ratio] 0 % 0-5 [facility] Work Phone: MCHC Auto (RBC) [Mass/Vol]on 06-14-2021 MCHC (RBC) [Mass/Vol] 34.8 g/dL 32-36 [facility] Work Phone: No Panel Informationon 06-14 Estimated GFR (MDRD) Amer 185 mL/min >60 [facility] Work Phone: Comment on above: GFR Calc Estimated GFR (MDRD) Non-Af Amer 153 mL/min >60 [facility] Work Phone: Comment on above: Non- GFR Calc Platelets bldon 06-14-2021 Platelets (Bld) [#/Vol] 223 10*3/uL 150-450 [facility] Work Phone: Serum or plasma calcium gordy urement (mass/volume)on 06-14-2021 Calcium [Mass/Vol] 8.0 mg/dL 8.5-10.1 [facility] Work Phone: Serum or plasma creatinine m easurement (mass/volume)on 06-14-2021 Creatinine [Mass/Vol] 0.57 mg/dL 0.70-1.30 [facility] Work Phone: Comment on above: The validity of the calculated GFR & GFRAA in patients over 70 years has not been determined. Clinical correlation is essential. Serum or plasma urea nitroge n measurement (mass/volume)on 06-14-2021 Urea nitrogen [Mass/Vol] 20 mg/dL 7-18 [facility] Work Phone: Thin prep Papanicolaou smear with manual screeningon 06-14-2021 Thin prep Papanicolaou smear with manual screening 7 5-15 [facility] Work Phone: Absolute lymphocyte counton 06-07-2021 Lymphocytes Auto (Unsp spec) [#/Vol] 1.38 10*3/uL 0.83-4.51 [facility] Work Phone: Basophil percentageon 2021 Basophils/100 WBC (Bld) 0.2 % 0-1 [facility] Work Phone: Eosinophils/100 WBC (Bld) 0.0 % 0-5 [facility] Work Phone: Neutrophils (Bld) [#/Vol] 7.3 10*3/uL 2.0-7.7 [facility] Work Phone: Neutrophils/100 WBC (Bld) 75.3 % 47-70 [facility] Work Phone: WBC (Bld) [#/Vol] 9.7 10*3/uL 4.4-11.0 [facility] Work Phone: Blood erythrocytes count (nu mber/volume)on 06-07-2021 RBC (Bld) [#/Vol] 4.48 10*6/uL 4.6-6.2 [facility] Work Phone: Blood hemoglobin measurement (mass/volume)on 06-07-2021 Hemoglobin (Bld) [Mass/Vol] 13.8 g/dL 13.0-16.5 [facility] Work Phone: Blood lymphocytes/100 leukoc yteson 06-07-2021 Lymphocytes/100 WBC (Bld) 14.2 % 19-41 [facility] Work Phone: Blood monocytes/100 leukocyt eson 06-07-2021 Monocytes/100 WBC (Bld) 10.2 % 0-10 [facility] Work Phone: Blood platelet mean volumeon 06-07-2021 Platelet mean volume (Bld) [Entitic vol] 11.9 fL 6.2-12.0 [facility] Work Phone: Determination of erythrocyte mean corpuscular volume (MCV)on 06-07-2021 MCV (RBC) [Entitic vol] 92.9 fL 80-94 [facility] Work Phone: Hematocrit Auto (Bld) [Volum e fraction]on 06-07-2021 Hematocrit (Bld) [Volume fraction] 41.6 % 40-54 [facility] Work Phone: Laboratory - Hematology and Cell countson 06-07-2021 Erythrocyte distribution width (RBC) [Entitic vol] 43.8 fL 35.1-43.9 [facility] Work Phone: [phone] Erythrocyte distribution width (RBC) [Ratio] 12.8 % 11.6-14.6 [facility] Work Phone: [phone] Immature granulocytes/100 WBC (Bld) 0.100 % 0.0-0.9 [facility] Work Phone: [phone] Comment on above: IG% - Immature Granu locytes (promyelocytes, myelocytes and metamyelocytes) > 1% indicates that a LEFT SHIFT is Present. MCH (RBC) [Entitic mass] 30.8 pg 27.0-32.0 [facility] Work Phone: [phone] Nucleated RBC/100 WBC (Bld) [Ratio] 0 % 0-5 [facility] Work Phone: [phone] MCHC Auto (RBC) [Mass/Vol]on 06-07-2021 MCHC (RBC) [Mass/Vol] 33.2 g/dL 32-36 [facility] Work Phone: Platelets bldon 06-07-2021 Platelets (Bld) [#/Vol] 152 10*3/uL 150-450 [facility] Work Phone: [phone] Absolute lymphocyte counton 05-31-2021 Lymphocytes Auto (Unsp spec) [#/Vol] 1.72 10*3/uL 0.83-4.51 [facility] Work Phone: [phone] Basophil percentageon 2021 Basophils/100 WBC (Bld) 0.7 % 0-1 [facility] Work Phone: Eosinophils/100 WBC (Bld) 1.1 % 0-5 [facility] Work Phone: Neutrophils (Bld) [#/Vol] 3.3 10*3/uL 2.0-7.7 [facility] Work Phone: [phone] Neutrophils/100 WBC (Bld) 58.5 % 47-70 [facility] Work Phone: WBC (Bld) [#/Vol] 5.6 10*3/uL 4.4-11.0 [facility] Work Phone: Blood erythrocytes count (nu mber/volume)on 05-31-2021 RBC (Bld) [#/Vol] 4.44 10*6/uL 4.6-6.2 [facility] Work Phone: Blood hemoglobin measurement (mass/volume)on 05-31-2021 Hemoglobin (Bld) [Mass/Vol] 13.6 g/dL 13.0-16.5 [facility] Work Phone: Blood lymphocytes/100 leukoc yteson 05-31-2021 Lymphocytes/100 WBC (Bld) 30.7 % 19-41 [facility] Work Phone: Blood monocytes/100 leukocyt eson 05-31-2021 Monocytes/100 WBC (Bld) 8.6 % 0-10 [facility] Work Phone: Blood platelet mean volumeon 05-31-2021 Platelet mean volume (Bld) [Entitic vol] 11.2 fL 6.2-12.0 [facility] Work Phone: Determination of erythrocyte mean corpuscular volume (MCV)on 05-31-2021 MCV (RBC) [Entitic vol] 92.1 fL 80-94 [facility] Work Phone: Hematocrit Auto (Bld) [Volum e fraction]on 05-31-2021 Hematocrit (Bld) [Volume fraction] 40.9 % 40-54 [facility] Work Phone: Laboratory - Hematology and Cell countson 05-31-2021 Erythrocyte distribution width (RBC) [Entitic vol] 42.2 fL 35.1-43.9 [facility] Work Phone: Erythrocyte distribution width (RBC) [Ratio] 12.4 % 11.6-14.6 [facility] Work Phone: Immature granulocytes/100 WBC (Bld) 0.400 % 0.0-0.9 [facility] Work Phone: Comment on above: IG% - Immature Granu locytes (promyelocytes, myelocytes and metamyelocytes) > 1% indicates that a LEFT SHIFT is Present. MCH (RBC) [Entitic mass] 30.6 pg 27.0-32.0 [facility] Work Phone: Nucleated RBC/100 WBC (Bld) [Ratio] 0 % 0-5 [facility] Work Phone: MCHC Auto (RBC) [Mass/Vol]on 05-31-2021 MCHC (RBC) [Mass/Vol] 33.3 g/dL 32-36 [facility] Work Phone: Platelets bldon 05-31-2021 Platelets (Bld) [#/Vol] 189 10*3/uL 150-450 [facility] Work Phone: [phone] Absolute lymphocyte counton 05-24-2021 Lymphocytes Auto (Unsp spec) [#/Vol] 1.58 10*3/uL 0.83-4.51 [facility] Work Phone: Basophil percentageon 2021 Basophils/100 WBC (Bld) 0.8 % 0-1 [facility] Work Phone: Eosinophils/100 WBC (Bld) 2.4 % 0-5 [facility] Work Phone: Neutrophils (Bld) [#/Vol] 3.8 10*3/uL 2.0-7.7 [facility] Work Phone: Neutrophils/100 WBC (Bld) 60.3 % 47-70 [facility] Work Phone: WBC (Bld) [#/Vol] 6.3 10*3/uL 4.4-11.0 [facility] Work Phone: [phone] Blood erythrocytes count (nu mber/volume)on 05-24-2021 RBC (Bld) [#/Vol] 4.50 10*6/uL 4.6-6.2 [facility] Work Phone: Blood hemoglobin measurement (mass/volume)on 05-24-2021 Hemoglobin (Bld) [Mass/Vol] 13.7 g/dL 13.0-16.5 [facility] Work Phone: Blood lymphocytes/100 leukoc yteson 05-24-2021 Lymphocytes/100 WBC (Bld) 25.0 % 19-41 [facility] Work Phone: Blood monocytes/100 leukocyt eson 05-24-2021 Monocytes/100 WBC (Bld) 11.2 % 0-10 [facility] Work Phone: Blood platelet mean volumeon 05-24-2021 Platelet mean volume (Bld) [Entitic vol] 11.3 fL 6.2-12.0 [facility] Work Phone: Determination of erythrocyte mean corpuscular volume (MCV)on 05-24-2021 MCV (RBC) [Entitic vol] 92.9 fL 80-94 [facility] Work Phone: Hematocrit Auto (Bld) [Volum e fraction]on 05-24-2021 Hematocrit (Bld) [Volume fraction] 41.8 % 40-54 [facility] Work Phone: Laboratory - Hematology and Cell countson 05-24-2021 Erythrocyte distribution width (RBC) [Entitic vol] 42.8 fL 35.1-43.9 [facility] Work Phone: Erythrocyte distribution width (RBC) [Ratio] 12.6 % 11.6-14.6 [facility] Work Phone: Immature granulocytes/100 WBC (Bld) 0.300 % 0.0-0.9 [facility] Work Phone: Comment on above: IG% - Immature Granu locytes (promyelocytes, myelocytes and metamyelocytes) > 1% indicates that a LEFT SHIFT is Present. MCH (RBC) [Entitic mass] 30.4 pg 27.0-32.0 [facility] Work Phone: Nucleated RBC/100 WBC (Bld) [Ratio] 0 % 0-5 [facility] Work Phone: MCHC Auto (RBC) [Mass/Vol]on 05-24-2021 MCHC (RBC) [Mass/Vol] 32.8 g/dL 32-36 [facility] Work Phone: Platelets bldon 05-24-2021 Platelets (Bld) [#/Vol] 207 10*3/uL 150-450 [facility] Work Phone: Absolute lymphocyte counton 05-17-2021 Lymphocytes Auto (Unsp spec) [#/Vol] 1.59 10*3/uL 0.83-4.51 [facility] Work Phone: Basophil percentageon 2021 Basophils/100 WBC (Bld) 0.7 % 0-1 [facility] Work Phone: [phone] Eosinophils/100 WBC (Bld) 1.7 % 0-5 [facility] Work Phone: Neutrophils (Bld) [#/Vol] 3.5 10*3/uL 2.0-7.7 [facility] Work Phone: Neutrophils/100 WBC (Bld) 59.5 % 47-70 [facility] Work Phone: WBC (Bld) [#/Vol] 5.9 10*3/uL 4.4-11.0 [facility] Work Phone: Blood erythrocytes count (nu mber/volume)on 05-17-2021 RBC (Bld) [#/Vol] 4.35 10*6/uL 4.6-6.2 [facility] Work Phone: Blood hemoglobin measurement (mass/volume)on 05-17-2021 Hemoglobin (Bld) [Mass/Vol] 13.4 g/dL 13.0-16.5 [facility] Work Phone: Blood lymphocytes/100 leukoc yteson 05-17-2021 Lymphocytes/100 WBC (Bld) 26.9 % 19-41 [facility] Work Phone: Blood monocytes/100 leukocyt eson 05-17-2021 Monocytes/100 WBC (Bld) 11.0 % 0-10 [facility] Work Phone: Blood platelet mean volumeon 05-17-2021 Platelet mean volume (Bld) [Entitic vol] 11.5 fL 6.2-12.0 [facility] Work Phone: Determination of erythrocyte mean corpuscular volume (MCV)on 05-17-2021 MCV (RBC) [Entitic vol] 92.9 fL 80-94 [facility] Work Phone: Hematocrit Auto (Bld) [Volum e fraction]on 05-17-2021 Hematocrit (Bld) [Volume fraction] 40.4 % 40-54 [facility] Work Phone: Laboratory - Hematology and Cell countson 05-17-2021 Erythrocyte distribution width (RBC) [Entitic vol] 43.4 fL 35.1-43.9 [facility] Work Phone: Erythrocyte distribution width (RBC) [Ratio] 12.7 % 11.6-14.6 [facility] Work Phone: Immature granulocytes/100 WBC (Bld) 0.200 % 0.0-0.9 [facility] Work Phone: Comment on above: IG% - Immature Granu locytes (promyelocytes, myelocytes and metamyelocytes) > 1% indicates that a LEFT SHIFT is Present. MCH (RBC) [Entitic mass] 30.8 pg 27.0-32.0 [facility] Work Phone: Nucleated RBC/100 WBC (Bld) [Ratio] 0 % 0-5 [facility] Work Phone: MCHC Auto (RBC) [Mass/Vol]on 01-17-2022 MCHC (RBC) [Mass/Vol] 33.2 g/dL 32-36 [facility] Work Phone: Platelets bldon 05-17-2021 Platelets (Bld) [#/Vol] 171 10*3/uL 150-450 [facility] Work Phone: ED Provider Noteon 2 ED Provider Note Emergency Department Encounter [facility] Patient: Kathya Hooper : 1955 [...] [employer] Timothy Burton DO 05/15/21 1530 [facility] ED Provider Note [facility] ED eMERGENCY dEPARTMENT eNCOUnter Pt Name: [...] Diagnosis Date ? TREVER (acute kidney injury) ([facility]) ? Alcohol abuse 07/08/2018 ? Anxiety ? [...] percentageon 2021 Chloride [Moles/Vol] 105 mmol/L 98-107 [facility] Work Phone: Glucose [Mass/Vol] 96 mg/dL 74-106 [facility] Work Phone: Potassium [Moles/Vol] 3.5 mmol/L 3.5-5.1 [facility] Work Phone: Sodium [Moles/Vol] 141 mmol/L 136-145 [facility] Work Phone: Laboratory - Chemistry and C hemistry - challengeon 05-14-2021 CO2 [Moles/Vol] 30.0 mmol/L 21.0-32.0 [facility] Work Phone: Urea nitrogen/Creatinine [Mass ratio] 39.2 mg/mg 10-20 [facility] Work Phone: No Panel Informationon 05-14 Estimated GFR (MDRD) Amer 210 mL/min >60 [facility] Work Phone: Comment on above: GFR Calc Estimated GFR (MDRD) Non-Af Amer 174 mL/min >60 [facility] Work Phone: Comment on above: Non- GFR Calc Serum or plasma calcium gordy urement (mass/volume)on 05-14-2021 Calcium [Mass/Vol] 8.4 mg/dL 8.5-10.1 [facility] Work Phone: Serum or plasma creatinine m easurement (mass/volume)on 05-14-2021 Creatinine [Mass/Vol] 0.51 mg/dL 0.70-1.30 [facility] Work Phone: Comment on above: The validity of the calculated GFR & GFRAA in patients over 70 years has not been determined. Clinical correlation is essential. Serum or plasma urea nitroge n measurement (mass/volume)on 05-14-2021 Urea nitrogen [Mass/Vol] 20 mg/dL 7-18 [facility] Work Phone: Thin prep Papanicolaou smear with manual screeningon 05-14-2021 Thin prep Papanicolaou smear with manual screening 6 5-15 [facility] Work Phone: Absolute lymphocyte counton 05-10-2021 Lymphocytes Auto (Unsp spec) [#/Vol] 1.65 10*3/uL 0.83-4.51 [facility] Work Phone: Basophil percentageon 2021 Basophils/100 WBC (Bld) 0.5 % 0-1 [facility] Work Phone: Eosinophils/100 WBC (Bld) 0.7 % 0-5 [facility] Work Phone: Neutrophils (Bld) [#/Vol] 5.6 10*3/uL 2.0-7.7 [facility] Work Phone: Neutrophils/100 WBC (Bld) 69.5 % 47-70 [facility] Work Phone: WBC (Bld) [#/Vol] 8.1 10*3/uL 4.4-11.0 [facility] Work Phone: Blood erythrocytes count (nu mber/volume)on 05-10-2021 RBC (Bld) [#/Vol] 4.52 10*6/uL 4.6-6.2 [facility] Work Phone: Blood hemoglobin measurement (mass/volume)on 05-10-2021 Hemoglobin (Bld) [Mass/Vol] 13.8 g/dL 13.0-16.5 [facility] Work Phone: Blood lymphocytes/100 leukoc yteson 05-10-2021 Lymphocytes/100 WBC (Bld) 20.4 % 19-41 [facility] Work Phone: Blood monocytes/100 leukocyt eson 05-10-2021 Monocytes/100 WBC (Bld) 8.4 % 0-10 [facility] Work Phone: Blood platelet mean volumeon 05-10-2021 Platelet mean volume (Bld) [Entitic vol] 11.3 fL 6.2-12.0 [facility] Work Phone: Determination of erythrocyte mean corpuscular volume (MCV)on 05-10-2021 MCV (RBC) [Entitic vol] 91.8 fL 80-94 [facility] Work Phone: Hematocrit Auto (Bld) [Volum e fraction]on 05-10-2021 Hematocrit (Bld) [Volume fraction] 41.5 % 40-54 [facility] Work Phone: Laboratory - Hematology and Cell countson 05-10-2021 Erythrocyte distribution width (RBC) [Entitic vol] 42.9 fL 35.1-43.9 [facility] Work Phone: Erythrocyte distribution width (RBC) [Ratio] 12.8 % 11.6-14.6 [facility] Work Phone: Immature granulocytes/100 WBC (Bld) 0.500 % 0.0-0.9 [facility] Work Phone: Comment on above: IG% - Immature Granu locytes (promyelocytes, myelocytes and metamyelocytes) > 1% indicates that a LEFT SHIFT is Present. MCH (RBC) [Entitic mass] 30.5 pg 27.0-32.0 [facility] Work Phone: Nucleated RBC/100 WBC (Bld) [Ratio] 0 % 0-5 [facility] Work Phone: MCHC Auto (RBC) [Mass/Vol]on 05-10-2021 MCHC (RBC) [Mass/Vol] 33.3 g/dL 32-36 [facility] Work Phone: Platelets bldon 05-10-2021 Platelets (Bld) [#/Vol] 191 10*3/uL 150-450 [facility] Work Phone: Absolute lymphocyte counton 05-03-2021 Lymphocytes Auto (Unsp spec) [#/Vol] 1.69 10*3/uL 0.83-4.51 [facility] Work Phone: [phone] Basophil percentageon 2021 Basophils/100 WBC (Bld) 0.6 % 0-1 [facility] Work Phone: Eosinophils/100 WBC (Bld) 0.7 % 0-5 [facility] Work Phone: Neutrophils (Bld) [#/Vol] 4.6 10*3/uL 2.0-7.7 [facility] Work Phone: Neutrophils/100 WBC (Bld) 64.4 % 47-70 [facility] Work Phone: WBC (Bld) [#/Vol] 7.2 10*3/uL 4.4-11.0 [facility] Work Phone: Blood erythrocytes count (nu mber/volume)on 05-03-2021 RBC (Bld) [#/Vol] 4.55 10*6/uL 4.6-6.2 [facility] Work Phone: Blood hemoglobin measurement (mass/volume)on 05-03-2021 Hemoglobin (Bld) [Mass/Vol] 14.0 g/dL 13.0-16.5 [facility] Work Phone: Blood lymphocytes/100 leukoc yteson 05-03-2021 Lymphocytes/100 WBC (Bld) 23.6 % 19-41 [facility] Work Phone: Blood monocytes/100 leukocyt eson 05-03-2021 Monocytes/100 WBC (Bld) 10.3 % 0-10 [facility] Work Phone: Blood platelet mean volumeon 05-03-2021 Platelet mean volume (Bld) [Entitic vol] 11.7 fL 6.2-12.0 [facility] Work Phone: Determination of erythrocyte mean corpuscular volume (MCV)on 05-03-2021 MCV (RBC) [Entitic vol] 93.2 fL 80-94 [facility] Work Phone: Hematocrit Auto (Bld) [Volum e fraction]on 05-03-2021 Hematocrit (Bld) [Volume fraction] 42.4 % 40-54 [facility] Work Phone: Laboratory - Hematology and Cell countson 05-03-2021 Erythrocyte distribution width (RBC) [Entitic vol] 44.2 fL 35.1-43.9 [facility] Work Phone: Erythrocyte distribution width (RBC) [Ratio] 13.1 % 11.6-14.6 [facility] Work Phone: Immature granulocytes/100 WBC (Bld) 0.400 % 0.0-0.9 [facility] Work Phone: Comment on above: IG% - Immature Granu locytes (promyelocytes, myelocytes and metamyelocytes) > 1% indicates that a LEFT SHIFT is Present. MCH (RBC) [Entitic mass] 30.8 pg 27.0-32.0 [facility] Work Phone: Nucleated RBC/100 WBC (Bld) [Ratio] 0 % 0-5 [facility] Work Phone: MCHC Auto (RBC) [Mass/Vol]on 05-03-2021 MCHC (RBC) [Mass/Vol] 33.0 g/dL 32-36 [facility] Work Phone: Platelets bldon 05-03-2021 Platelets (Bld) [#/Vol] 175 10*3/uL 150-450 [facility] Work Phone: Absolute lymphocyte counton 04-26-2021 Lymphocytes Auto (Unsp spec) [#/Vol] 1.68 10*3/uL 0.83-4.51 [facility] Work Phone: Basophil percentageon 2020 Eosinophils/100 WBC (Bld) 1.1 % 0-5 [facility] Work Phone: Neutrophils (Bld) [#/Vol] 4.5 10*3/uL 2.0-7.7 [facility] Work Phone: WBC (Bld) [#/Vol] 7.2 10*3/uL 4.4-11.0 [facility] Work Phone: Blood erythrocytes count (nu mber/volume)on 04-26-2021 RBC (Bld) [#/Vol] 4.32 10*6/uL 4.6-6.2 [facility] Work Phone: Blood hemoglobin measurement (mass/volume)on 04-26-2021 Hemoglobin (Bld) [Mass/Vol] 13.5 g/dL 13.0-16.5 [facility] Work Phone: Blood lymphocytes/100 leukoc yteson 04-26-2021 Lymphocytes/100 WBC (Bld) 23.5 % 19-41 [facility] Work Phone: Blood monocytes/100 leukocyt eson 04-26-2021 Monocytes/100 WBC (Bld) 11.0 % 0-10 [facility] Work Phone: Blood platelet mean volumeon 04-26-2021 Platelet mean volume (Bld) [Entitic vol] 11.0 fL 6.2-12.0 [facility] Work Phone: Determination of erythrocyte mean corpuscular volume (MCV)on 04-26-2021 MCV (RBC) [Entitic vol] 93.3 fL 80-94 [facility] Work Phone: Hematocrit Auto (Bld) [Volum e fraction]on 04-26-2021 Hematocrit (Bld) [Volume fraction] 40.3 % 40-54 [facility] Work Phone: Laboratory - Hematology and Cell countson 04-26-2021 Basophils/100 WBC (Unsp spec) 0.6 % 0-1 [facility] Work Phone: Erythrocyte distribution width (RBC) [Entitic vol] 45.8 fL 35.1-43.9 [facility] Work Phone: [phone] Erythrocyte distribution width (RBC) [Ratio] 13.2 % 11.6-14.6 [facility] Work Phone: [phone] Immature granulocytes/100 WBC (Bld) 0.600 % 0.0-0.9 [facility] Work Phone: Comment on above: IG% - Immature Granu locytes (promyelocytes, myelocytes and metamyelocytes) > 1% indicates that a LEFT SHIFT is Present. MCH (RBC) [Entitic mass] 31.3 pg 27.0-32.0 [facility] Work Phone: [phone] Neutrophils/100 WBC (Bld) 63.2 % 47-70 [facility] Work Phone: [phone] Nucleated RBC/100 WBC (Bld) [Ratio] 0 % 0-5 [facility] Work Phone: [phone] MCHC Auto (RBC) [Mass/Vol]on 04-26-2021 MCHC (RBC) [Mass/Vol] 33.5 g/dL 32-36 [facility] Work Phone: Platelets bldon 04-26-2021 Platelets (Bld) [#/Vol] 172 10*3/uL 150-450 [facility] Work Phone: [phone] Absolute lymphocyte counton 04-19-2021 Lymphocytes Auto (Unsp spec) [#/Vol] 1.31 10*3/uL 0.83-4.51 [facility] Work Phone: Basophil percentageon 2020 Eosinophils/100 WBC (Bld) 2.8 % 0-5 [facility] Work Phone: Neutrophils (Bld) [#/Vol] 3.0 10*3/uL 2.0-7.7 [facility] Work Phone: WBC (Bld) [#/Vol] 5.0 10*3/uL 4.4-11.0 [facility] Work Phone: [phone] Blood erythrocytes count (nu mber/volume)on 04-19-2021 RBC (Bld) [#/Vol] 4.26 10*6/uL 4.6-6.2 [facility] Work [facility]: Blood hemoglobin measurement (mass/volume)on 04-19-2021 Hemoglobin (Bld) [Mass/Vol] 13.2 g/dL 13.0-16.5 [facility] Work Phone: Blood lymphocytes/100 leukoc yteson 04-19-2021 Lymphocytes/100 WBC (Bld) 26.1 % 19-41 [facility] Work Phone: Blood monocytes/100 leukocyt eson 04-19-2021 Monocytes/100 WBC (Bld) 10.0 % 0-10 [facility] Work Phone: Blood platelet mean volumeon 04-19-2021 Platelet mean volume (Bld) [Entitic vol] 10.9 fL 6.2-12.0 [facility] Work Phone: Determination of erythrocyte mean corpuscular volume (MCV)on 04-19-2021 MCV (RBC) [Entitic vol] 93.7 fL 80-94 [facility] Work Phone: Hematocrit Auto (Bld) [Volum e fraction]on 04-19-2021 Hematocrit (Bld) [Volume fraction] 39.9 % 40-54 [facility] Work Phone: Laboratory - Hematology and Cell countson 04-19-2021 Basophils/100 WBC (Unsp spec) 1.0 % 0-1 [facility] Work Phone: Erythrocyte distribution width (RBC) [Entitic vol] 46.7 fL 35.1-43.9 [facility] Work Phone: Erythrocyte distribution width (RBC) [Ratio] 13.7 % 11.6-14.6 [facility] Work Phone: Immature granulocytes/100 WBC (Bld) 0.400 % 0.0-0.9 [facility] Work Phone: Comment on above: IG% - Immature Granu locytes (promyelocytes, myelocytes and metamyelocytes) > 1% indicates that a LEFT SHIFT is Present. MCH (RBC) [Entitic mass] 31.0 pg 27.0-32.0 [facility] Work Phone: [phone] Neutrophils/100 WBC (Bld) 59.7 % 47-70 [facility] Work Phone: [phone] Nucleated RBC/100 WBC (Bld) [Ratio] 0 % 0-5 [facility] Work Phone: [phone] MCHC Auto (RBC) [Mass/Vol]on 04-19-2021 MCHC (RBC) [Mass/Vol] 33.1 g/dL 32-36 [facility] Work Phone: [phone] Platelets bldon 04-19-2021 Platelets (Bld) [#/Vol] 165 10*3/uL 150-450 [facility] Work Phone: [phone] Absolute lymphocyte counton 04-12-2021 Lymphocytes Auto (Unsp spec) [#/Vol] 1.41 10*3/uL 0.83-4.51 [facility] Work Phone: [phone] Basophil percentageon 2020 Bilirubin [Mass/Vol] 0.40 mg/dL 0.20-1.00 [facility] Work Phone: Comment on above: For patients on eltr ombopag therapy, use of Dimension [place] TBIL is not recommended. Eosinophils/100 WBC (Bld) 0.9 % 0-5 [facility] Work Phone: Neutrophils (Bld) [#/Vol] 3.4 10*3/uL 2.0-7.7 [facility] Work Phone: Protein [Mass/Vol] 5.7 g/dL 6.4-8.2 [facility] Work Phone: [phone] WBC (Bld) [#/Vol] 5.5 10*3/uL 4.4-11.0 [facility] Work Phone: Blood erythrocytes count (nu mber/volume)on 04-12-2021 RBC (Bld) [#/Vol] 4.09 10*6/uL 4.6-6.2 [facility] Work Phone: Blood hemoglobin measurement (mass/volume)on 04-12-2021 Hemoglobin (Bld) [Mass/Vol] 12.4 g/dL 13.0-16.5 [facility] Work Phone: Blood lymphocytes/100 leukoc yteson 04-12-2021 Lymphocytes/100 WBC (Bld) 25.9 % 19-41 [facility] Work Phone: Blood monocytes/100 leukocyt eson 04-12-2021 Monocytes/100 WBC (Bld) 9.2 % 0-10 [facility] Work Phone: Blood platelet mean volumeon 04-12-2021 Platelet mean volume (Bld) [Entitic vol] 11.1 fL 6.2-12.0 [facility] Work Phone: Determination of erythrocyte mean corpuscular volume (MCV)on 04-12-2021 MCV (RBC) [Entitic vol] 93.4 fL 80-94 [facility] Work Phone: Direct bilirubinon Bilirubin.direct [Mass/Vol] 0.08 mg/dL 0.00-0.30 [facility] Work Phone: Hematocrit Auto (Bld) [Volum e fraction]on 04-12-2021 Hematocrit (Bld) [Volume fraction] 38.2 % 40-54 [facility] Work Phone: Laboratory - Chemistry and C hemistry - challengeon 04-12-2021 ALP [Catalytic activity/Vol] 101 U/L 45-117 [facility] Work Phone: ALT [Catalytic activity/Vol] 30 U/L 16-61 [facility] Work Phone: Globulin (S) [Mass/Vol] 2.9 g/dL 2.2-4.2 [facility] Work Phone: Laboratory - Hematology and Cell countson 04-12-2021 Basophils/100 WBC (Unsp spec) 0.6 % 0-1 [facility] Work Phone: Erythrocyte distribution width (RBC) [Entitic vol] 46.7 fL 35.1-43.9 [facility] Work Phone: Erythrocyte distribution width (RBC) [Ratio] 13.7 % 11.6-14.6 [facility] Work Phone: Immature granulocytes/100 WBC (Bld) 0.400 % 0.0-0.9 [facility] Work Phone: Comment on above: IG% - Immature Granu locytes (promyelocytes, myelocytes and metamyelocytes) > 1% indicates that a LEFT SHIFT is Present. MCH (RBC) [Entitic mass] 30.3 pg 27.0-32.0 [facility] Work Phone: Neutrophils/100 WBC (Bld) 63.0 % 47-70 [facility] Work Phone: Nucleated RBC/100 WBC (Bld) [Ratio] 0 % 0-5 [facility] Work Phone: MCHC Auto (RBC) [Mass/Vol]on 04-12-2021 MCHC (RBC) [Mass/Vol] 32.5 g/dL 32-36 [facility] Work Phone: Platelets bldon 04-12-2021 Platelets (Bld) [#/Vol] 173 10*3/uL 150-450 [facility] Work Phone: Serum or plasma albumin gordy urement (mass/volume)on 04-12-2021 Albumin [Mass/Vol] 2.8 g/dL 3.2-5.0 [facility] Work Phone: Thin prep Papanicolaou smear with manual screeningon 04-12-2021 Thin prep Papanicolaou smear with manual screening 15 U/L 15-37 [facility] Work Phone: Absolute lymphocyte counton 04-07-2021 Lymphocytes Auto (Unsp spec) [#/Vol] 1.55 10*3/uL 0.83-4.51 [facility] Work Phone: Basophil percentageon 2020 Eosinophils/100 WBC (Bld) 0.7 % 0-5 [facility] Work Phone: Neutrophils (Bld) [#/Vol] 5.3 10*3/uL 2.0-7.7 [facility] Work Phone: WBC (Bld) [#/Vol] 8.1 10*3/uL 4.4-11.0 [facility] Work Phone: Blood erythrocytes count (nu mber/volume)on 04-07-2021 RBC (Bld) [#/Vol] 4.18 10*6/uL 4.6-6.2 [facility] Work Phone: Blood hemoglobin measurement (mass/volume)on 04-07-2021 Hemoglobin (Bld) [Mass/Vol] 12.9 g/dL 13.0-16.5 [facility] Work Phone: Blood lymphocytes/100 leukoc yteson 04-07-2021 Lymphocytes/100 WBC (Bld) 19.2 % 19-41 [facility] Work Phone: Blood monocytes/100 leukocyt eson 04-07-2021 Monocytes/100 WBC (Bld) 13.0 % 0-10 [facility] Work Phone: Blood platelet mean volumeon 04-07-2021 Platelet mean volume (Bld) [Entitic vol] 10.9 fL 6.2-12.0 [facility] Work Phone: Determination of erythrocyte mean corpuscular volume (MCV)on 04-07-2021 MCV (RBC) [Entitic vol] 92.6 fL 80-94 [facility] Work Phone: Hematocrit Auto (Bld) [Volum e fraction]on 04-07-2021 Hematocrit (Bld) [Volume fraction] 38.7 % 40-54 [facility] Work Phone: Laboratory - Hematology and Cell countson 04-07-2021 Basophils/100 WBC (Unsp spec) 0.6 % 0-1 [facility] Work Phone: Erythrocyte distribution width (RBC) [Entitic vol] 45.8 fL 35.1-43.9 [facility] Work Phone: Erythrocyte distribution width (RBC) [Ratio] 13.5 % 11.6-14.6 [facility] Work Phone: Immature granulocytes/100 WBC (Bld) 0.500 % 0.0-0.9 [facility] Work Phone: Comment on above: IG% - Immature Granu locytes (promyelocytes, myelocytes and metamyelocytes) > 1% indicates that a LEFT SHIFT is Present. MCH (RBC) [Entitic mass] 30.9 pg 27.0-32.0 [facility] Work Phone: Neutrophils/100 WBC (Bld) 66.0 % 47-70 [facility] Work Phone: Nucleated RBC/100 WBC (Bld) [Ratio] 0 % 0-5 [facility] Work Phone: MCHC Auto (RBC) [Mass/Vol]on 04-07-2021 MCHC (RBC) [Mass/Vol] 33.3 g/dL 32-36 [facility] Work Phone: Platelets bldon 04-07-2021 Platelets (Bld) [#/Vol] 210 10*3/uL 150-450 [facility] Work Phone: CULTURE BLOODon 03-25-2021 Microscopic examination of blood, culture CULTURE BLOOD --> Status: F No growth at 5 days. Normal [facility] Comment on above: Performed By: #### C /BLD ####[facility] [employer] [id number] [facility] [address] CULTURE BLOOD (Two)on 2020 Microscopic examination of blood, culture CULTURE BLOOD (Two) --> Status: F No growth at 5 days. Normal [facility] Comment on above: Performed By: #### C /BLT ####[facility] [facility] [place] [address] Basic Metabolic Panelon 03-02 Calcium [Mass/Vol] 8.8 mg/dL Normal 8.4-10.4 [facility] Comment on above: Performed By: #### H EMDF, BMP3 #### [facility] [address] [place] [address] Glucose [Mass/Vol] 103 mg/dL High 70-100 [facility] Comment on above: Performed By: #### H EMDF, BMP3 #### [facility] [address] [place] [address] Anion gap [Moles/Vol] 5 mmol/L Normal 3-13 [facility] Comment on above: Performed By: #### H EMDF, BMP3 #### [facility] [address] [place] [address] CO2 [Moles/Vol] 26 mmol/L Normal 22-30 [facility] Comment on above: Performed By: #### H EMDF, BMP3 #### [facility] [address] [place] [address] Creatinine [Mass/Vol] 0.49 mg/dL Low 0.52-1.25 [facility] Comment on above: Performed By: #### H EMDF, BMP3 #### [facility] [address] [place] [address] eGFR OTHER > 90.0 Normal >60 [facility] Comment on above: Result Comment: KDIG [...] Performed By: #### Kerri BRAR BMP3 #### [facility] [address] [place] [address] GFR/1.73 sq M.predicted among blacks MDRD (S/P/Bld) [Vol rate/Area] mL/min/{1.73_m2} Normal >60 [facility] Comment on above: Performed By: #### Kerri BRAR BMP3 #### [facility] [address] [place] [address] Urea nitrogen [Mass/Vol] 30 mg/dL High 7-17 [facility] Comment on above: Performed By: #### Kerri BRAR BMP3 #### [facility] [address] [place] [address] Chloride [Moles/Vol] 112 mmol/L High 98-107 [facility] Comment on above: Performed By: #### Kerri BRAR BMP3 #### [facility] [address] [place] [address] Potassium [Moles/Vol] 4.1 mmol/L Normal 3.5-5.1 [facility] Comment on above: Performed By: #### Kerri BRAR BMP3 #### [facility] [address] [place] [address] Sodium [Moles/Vol] 142 mmol/L Normal 135-145 [facility] Comment on above: Performed By: #### Kerri BRAR BMP3 #### [facility] [address] [place] [address] Anion gap [Moles/Vol] 5 mmol/L 3 - 13 mmol/L [facility] Work Phone: Calcium [Mass/Vol] 8.8 mg/dL 8.4 - 10. 4 mg/dL [facility] Work Phone: Chloride [Moles/Vol] 112 mmol/L High 98 - 10 7 mmol/L [facility] Work Phone: CO2 [Moles/Vol] 26 mmol/L 22 - 30 mmol/L [facility] Work Phone: Creatinine [Mass/Vol] 0.49 mg/dL Low 0.52 - 1.25 mg/dL [facility] Work Phone: EGFR IF NonAfrican Haitian >90.0 >60 mL/min [facility] Work Phone: Comment on above: KDIGO guidelines [...] 30 mg/dL High 7 - 17 mg/dL [email or web address] Work Phone: Test Performed by [facility], [address] [place], [place] [address] [email or web address] Work Phone: CBC Auto Differentialon 11-2 Hematocrit (Bld) [Volume fraction] 35.0 % Low 40.0 - 52.0 % [email or web address] Work Phone: Hemoglobin.gastrointest inal spec 1 Ql (Stl) 11.7 g/dL Low 13.0 - 18.0 g/dL [email or web address] Work Phone: Interpretation and review of laboratory results Abnormal [email or web address] Work Phone: [phone] MCH (RBC) [Entitic mass] 31.0 pg 26.0 - 34.0 pg [email or web address] Work Phone: [phone] MCHC (RBC) [Mass/Vol] 33.4 % 32.0 - 36.0 % [facility] Work Phone: MCV (RBC) [Entitic vol] 92.7 fL 80.0 - 98.0 fL [facility] Work Phone: Platelet distribution width (Bld) [Ratio] 13.4 % 11.5 - 14.5 % [facility] Work Phone: Platelet mean volume (Bld) [Entitic vol] 8.6 fL 7.4 - 10.4 fL [facility] Work Phone: [phone] Platelets (Bld) [#/Vol] 236 10*3/uL 140 - 440 10*3/uL [facility] Work Phone: RBC (Bld) [#/Vol] 3.77 10*6/uL Low 4.40 - 5.9 0 10*6/uL [facility] Work Phone: WBC (Bld) [#/Vol] 12.8 10*3/uL High 3.6 - 10.7 10*3/uL [email or web address] Work Phone: Test Performed by [facility], [address] [place] [address] [facility] Work Phone: Glucose,Bedsideon 03-24-2021 Glucose [Mass/Vol] 93 mg/dL Normal 70-100 [facility] Comment on above: Result Comment: Test performed by glucose meter. Results may be 10%-15% lower than serum/plasma values. (CLIA ID [id number]) Performed By: #### H EMDF, BMP3 #### [facility] [address] [place] [address] Glucose [Mass/Vol] 166 mg/dL High 70-100 [facility] Comment on above: Result Comment: Test performed by glucose meter. Results may be 10%-15% lower than serum/plasma values. (CLIA ID [id number]) Performed By: #### B GLU ####[facility] [facility] [address] Hemogram w/ Autodiffon 03-24 Erythrocyte distribution width (RBC) [Ratio] 13.4 % Normal 11.5-14.5 [facility] Comment on above: Performed By: #### H EMDF, BMP3 #### [facility] [address] [place] [place] [address] Hematocrit (Bld) [Volume fraction] 35.0 % Low 40.0-52.0 [facility] Comment on above: Performed By: #### H EMDF, BMP3 #### [facility] [address] [place] [address] Hemoglobin (Bld) [Mass/Vol] 11.7 g/dL Low 13.0-18.0 [facility] Comment on above: Performed By: #### H EMDF, BMP3 #### [facility] [address] [place] [address] MCH (RBC) [Entitic mass] 31.0 pg Normal 26.0-34.0 [facility] Comment on above: Performed By: #### H EMDF, BMP3 #### [facility] [address] [place] [address] MCHC 33.4 % Normal 32.0-36.0 [facility] Comment on above: Performed By: #### H EMDF, BMP3 #### [facility] [address] [place] [address] MCV (RBC) [Entitic vol] 92.7 fL Normal 80.0-98.0 [facility] Comment on above: Performed By: #### H EMDF, BMP3 #### [facility] [address] [place] [address] Platelet mean volume (Bld) [Entitic vol] 8.6 fL Normal 7.4-10.4 [facility] Comment on above: Performed By: #### H EMDF, BMP3 #### [facility] [address] [place] [address] Platelets (Bld) [#/Vol] 236 10*3/uL Normal 140-440 [facility] Comment on above: Performed By: #### H EMDF, BMP3 #### [facility] [address] [place] [address] RBC (Bld) [#/Vol] 3.77 10*6/uL Low 4.40-5.90 [facility] Comment on above: Performed By: #### H EMDF, BMP3 #### [facility] [address] [place] [address] WBC (Bld) [#/Vol] 12.8 10*3/uL High 3.6-10.7 [facility] Comment on above: Performed By: #### H EMDF, BMP3 #### [facility] [address] [place] [address] Manual Diffon 03-24-2021 Abs Lymph Cnt 1.7 10*3/uL Normal 1.1-4.5 [facility] Comment on above: Performed By: #### H EMDF, BMP3 #### [facility] [address] [place] [address] Abs Monocyte Cnt 0.8 10*3/uL Normal 0.2-1.1 [facility] Comment on above: Performed By: #### H EMDF, BMP3 #### [facility] [address] [place] [address] Abs Neutrophile Cnt 10.1 10*3/uL High 2.2-8.2 [facility] Comment on above: Performed By: #### H EMDF, BMP3 #### [facility] [address] [place] [address] Anisocytosis Slight Normal [facility] Comment on above: Performed By: #### H EMDF, BMP3 #### [facility] [address] [place] [address] Atypical Lymphocytes 2 % Abnormal <1 [facility] Comment on above: Performed By: #### H EMDF, BMP3 #### [facility] [address] [place] [address] Abdoul Cells Slight Normal [facility] Comment on above: Performed By: #### H EMDF, BMP3 #### [facility] [address] [place] [address] Lymphocytes 11 % Low 20-40 [facility] Comment on above: Performed By: #### H EMDF, BMP3 #### [facility] [address] [place] [address] Monocytes 6 % Normal 2-10 [facility] Comment on above: Performed By: #### H EMDF, BMP3 #### [facility] [address] [place] [address] Myelocytes 2 % Abnormal <1 [facility] Comment on above: Performed By: #### H EMDF, BMP3 #### [facility] [address] [place] [address] Ovalocytes Slight Normal [facility] Comment on above: Performed By: #### H EMDF, BMP3 #### [facility] [address] [place] [address] Poikilocytosis Slight Normal [facility] Comment on above: Performed By: #### H EMDF, BMP3 #### [facility] [address] [place] [address] Polychromasia Slight Normal [facility] Comment on above: Performed By: #### H EMDF, BMP3 #### [facility] [address] [place] [address] RBC Morphology ABNORMAL Normal [facility] Comment on above: Performed By: #### H EMDF, BMP3 #### [facility] [address] [place] [address] Seg Neutrophils 79 % Normal 40-80 [facility] Comment on above: Performed By: #### H EMDF, BMP3 #### [facility] [address] [place] [address] Tear Drop Forms Slight Normal [facility] Comment on above: Performed By: #### H EMDF, BMP3 #### [facility] [address] [place] [address] Abs Baso Cnt 0.0 10*3/uL Normal 0.0-0.2 [facility] Comment on above: Performed By: #### H EMDF, BMP3 #### [facility] [address] [place] [address] Abs Eosin Cnt 0.0 10*3/uL Normal 0.0-0.5 [facility] Comment on above: Performed By: #### H EMDF, BMP3 #### [facility] [address] [place] [address] Bands 0 % Normal 0-3 [facility] Comment on above: Performed By: #### H EMDF, BMP3 #### [facility] [address] [place] [address] Basophils 0 % Normal 0-2 [facility] Comment on above: Performed By: #### H EMDF, BMP3 #### [facility] [address] [place] [address] Cells counted 100 Normal [facility] Comment on above: Performed By: #### H EMDF, BMP3 #### [facility] [address] [place] [address] Eosinophils 0 % Low 1-6 [facility] Comment on above: Performed By: #### H EMDF, BMP3 #### [facility] [address] [place] [address] Manual Differentialon 2020 Absolute Baso # 0.0 10*3/uL 0.0 - 0.2 10*3/uL [facility] Work Phone: Absolute Eos # 0.0 10*3/uL 0.0 - 0.5 10*3/uL [facility] Work Phone: Absolute Lymph # 1.7 10*3/uL 1.1 - 4.5 10*3/uL [facility] Work Phone: Absolute Assumption # 0.8 10*3/uL 0.2 - 1.1 10*3/uL [...] 100 [facility] Work Phone: Test Performed by [facility], [address] [place] [address] [facility] Work Phone: POCT Glucoseon 03-24-2020 Glucose [Mass/Vol] 93 mg/dL 70 - 100 mg/dL [facility] Work Phone: Comment on above: Test performed by gl ucose meter. Results may be 10%-15% lower than serum/plasma values. (CLIA ID [id number]) Test Performed by [facility], [address] [place] [address] [facility] Work Phone: Basic Metabolic Panelon 03-02 Calcium [Mass/Vol] 8.8 mg/dL Normal 8.4-10.4 [facility] Comment on above: Performed By: #### H EMDF, BMP3 #### [facility] [address] [place] [address] Glucose [Mass/Vol] 143 mg/dL High 70-100 [facility] Comment on above: Performed By: #### H EMDF, BMP3 #### [facility] [address] [place] [address] Anion gap [Moles/Vol] 8 mmol/L Normal 3-13 [facility] Comment on above: Performed By: #### H EMDF, BMP3 #### [facility] [address] [place] [address] CO2 [Moles/Vol] 24 mmol/L Normal 22-30 [facility] Comment on above: Performed By: #### H EMDF, BMP3 #### [facility] [address] [place] [address] Creatinine [Mass/Vol] 0.47 mg/dL Low 0.52-1.25 [facility] Comment on above: Performed By: #### H EMDF, BMP3 #### [facility] [address] [place] [address] eGFR OTHER > 90.0 Normal >60 [facility] Comment on above: Result Comment: KDIG [...] Performed By: #### H MAYKEL BMP3 #### [facility] [address] [place] [address] GFR/1.73 sq M.predicted among blacks MDRD (S/P/Bld) [Vol rate/Area] mL/min/{1.73_m2} Normal >60 [facility] Comment on above: Performed By: #### H MAYKEL BMP3 #### [facility] [address] [place] [address] Urea nitrogen [Mass/Vol] 32 mg/dL High 7-17 [facility] Comment on above: Performed By: #### H ALCIRAF BMP3 #### [facility] [address] [place] [address] Chloride [Moles/Vol] 110 mmol/L High 98-107 [facility] Comment on above: Performed By: #### H EMDF BMP3 #### [facility] [address] [place] [address] Potassium [Moles/Vol] 3.9 mmol/L Normal 3.5-5.1 [facility] Comment on above: Performed By: #### H EMDF, BMP3 #### [facility] [address] [place] [address] Sodium [Moles/Vol] 142 mmol/L Normal 135-145 [facility] Comment on above: Performed By: #### H MAYKEL BMP3 #### [facility] [address] [place] [address] Anion gap [Moles/Vol] 8 mmol/L 3 - 13 mmol/L [employer] Work Phone: Calcium [Mass/Vol] 8.8 mg/dL 8.4 - 10. 4 mg/dL [employer] Work Phone: Chloride [Moles/Vol] 110 mmol/L High 98 - 10 7 mmol/L [facility] Work Phone: CO2 [Moles/Vol] 24 mmol/L 22 - 30 mmol/L [employer] Work Phone: Creatinine [Mass/Vol] 0.47 mg/dL Low 0.52 - 1.25 mg/dL [employer] Work Phone: EGFR IF NonAfrican Haitian >90.0 >60 mL/min [employer] Work Phone: Comment on above: KDIGO guidelines [...] MDRD (S/P/Bld) [Vol rate/Area] mL/min/{1.73_m2} >60 mL/min [facility] Work Phone: Glucose [Mass/Vol] 143 mg/dL High 70 - 100 mg/dL [employer] Work Phone: Interpretation and review of laboratory results Abnormal [employer] Work Phone: Potassium [Moles/Vol] 3.9 mmol/L 3.5 - 5.1 mmol/L [employer] Work Phone: Sodium [Moles/Vol] 142 mmol/L 135 - 145 mmol/L [facility] Work Phone: Urea nitrogen (BldV) [Mass/Vol] 32 mg/dL High 7 - 17 mg/dL [facility] Work Phone: Test [facility]formed by [facility], [address] [place], [place] [id number] [place] [address] LAB [facility] Work Phone: CBC Auto Differentialon 11-2 Absolute Baso # 0.0 10*3/uL 0.0 - 0.2 10*3/uL [facility] Work Phone: Absolute Neut # 13.5 10*3/uL High 1.8 - 7.0 10*3/uL [employer] Work Phone: Basophils/100 WBC (Bld) 0.3 % 0.0 - 2.0 % [facility] Work Phone: Eosinophils (Bld) [#/Vol] 0.0 10*3/uL 0.0 - 0.5 10*3/uL [facility] Work Phone: Eosinophils/100 WBC (Bld) 0.0 % Low 1.0 - 6.0 % [facility] Work Phone: Granulocytes/100 WBC (Bld) 89.5 % High 40.0 - 80.0 % [facility] Work Phone: Hematocrit (Bld) [Volume fraction] 36.5 % Low 40.0 - 52.0 % [facility] Work Phone: Hemoglobin.gastrointest inal spec 1 Ql (Stl) 12.4 g/dL Low 13.0 - 18.0 g/dL [employer] Work Phone: Interpretation and review of laboratory results Abnormal [facility] Work Phone: Lymphocytes (Bld) [#/Vol] 0.7 10*3/uL Low 1.0 - 4.3 10*3/uL [facility] Work Phone: Lymphocytes/100 WBC (Bld) 4.8 % Low 20.0 - 40.0 % [facility] Work Phone: MCH (RBC) [Entitic mass] 31.3 pg 26.0 - 34.0 pg [facility] Work Phone: MCHC (RBC) [Mass/Vol] 34.1 % 32.0 - 36.0 % [employer] Work Phone: MCV (RBC) [Entitic vol] 92.0 fL 80.0 - 98.0 fL [facility] Work Phone: Monocytes (Bld) [#/Vol] 0.8 10*3/uL 0.0 - 0.8 10*3/uL [facility] Work Phone: Monocytes/100 WBC (Bld) 5.4 % 2.0 - 10.0 % [facility] Work Phone: Platelet distribution width (Bld) [Ratio] 13.2 % 11.5 - 14.5 % [facility] Work Phone: Platelet mean volume (Bld) [Entitic vol] 9.0 fL 7.4 - 10.4 fL [facility] Work Phone: Platelets (Bld) [#/Vol] 211 10*3/uL 140 - 440 10*3/uL [facility] Work Phone: RBC (Bld) [#/Vol] 3.96 10*6/uL Low 4.40 - 5.9 0 10*6/uL [facility] Work Phone: WBC (Bld) [#/Vol] 15.1 10*3/uL High 3.6 - 10.7 10*3/uL [facility] Work Phone: Test Performed by [facility], [address] [place], [place] [id number] [place] [address] LAB [facility] Work Phone: Glucose,Bedsideon 03-23-2021 Glucose [Mass/Vol] 122 mg/dL High 70-100 [facility] Comment on above: Result Comment: Test performed by glucose meter. Results may be 10%-15% lower than serum/plasma values. (CLIA ID [id number]) Performed By: #### H MAYKEL BMP3 #### [facility] [address] [place] [address] Glucose [Mass/Vol] 129 mg/dL High 70-100 [facility] Comment on above: Test performed by gl ucose meter. Results may be 10%-15% lower than serum/plasma values. (CLIA ID [id number]) Result Comment: Test performed by glucose meter. Results may be 10%-15% lower than serum/plasma values. (CLIA ID [id number]) Performed By: #### B GLU ####[place] [address] [place] [address] Glucose [Mass/Vol] 136 mg/dL High 70-100 [facility] Comment on above: Result Comment: Test performed by glucose meter. Results may be 10%-15% lower than serum/plasma values. (CLIA ID [id number]) Performed By: #### B GLU #### [facility] [address] [place] [address] Hemogram w/ Autodiffon 03-23 Abs Baso Cnt 0.0 10*3/uL Normal 0.0-0.2 [facility] Comment on above: Performed By: #### H MAYKEL BMP3 #### [facility] [address] [place] [address] Abs Neutrophile Cnt 13.5 10*3/uL High 1.8-7.0 [facility] Comment on above: Performed By: #### H MAYKEL BMP3 #### [facility] [address] [place] [address] Basophils/100 WBC (Bld) 0.3 % Normal 0.0-2.0 S [facility] Comment on above: Performed By: #### H MAYKEL BMP3 #### [facility] [address] [place] [address] Eosinophils (Bld) [#/Vol] 0.0 10*3/uL Normal 0.0-0.5 [facility] Comment on above: Performed By: #### H EMDF, BMP3 #### [facility] [address] [place] [address] Eosinophils/100 WBC (Bld) 0.0 % Low 1.0-6.0 [facility] Comment on above: Performed By: #### H EMDF, BMP3 #### [facility] [address] [place] [address] Erythrocyte distribution width (RBC) [Ratio] 13.2 % Normal 11.5-14.5 [facility] Comment on above: Performed By: #### H EMDF, BMP3 #### [facility] [address] [place] [address] Granulocytes/100 WBC (Bld) 89.5 % High 40.0-80.0 [facility] Comment on above: Performed By: #### H EMDF, BMP3 #### [facility] [address] [place] [address] Hematocrit (Bld) [Volume fraction] 36.5 % Low 40.0-52.0 [facility] Comment on above: Performed By: #### H EMDF, BMP3 #### [facility] [address] [place] [address] Hemoglobin (Bld) [Mass/Vol] 12.4 g/dL Low 13.0-18.0 [facility] Comment on above: Performed By: #### H EMDF, BMP3 #### [facility] [address] [place] [address] Lymphocytes (Bld) [#/Vol] 0.7 10*3/uL Low 1.0-4.3 [facility] Comment on above: Performed By: #### H EMDF, BMP3 #### [facility] [address] [place] [address] Lymphocytes/100 WBC (Bld) 4.8 % Low 20.0-40.0 [facility] Comment on above: Performed By: #### H EMDF, BMP3 #### [facility] [address] [place] [address] MCH (RBC) [Entitic mass] 31.3 pg Normal 26.0-34.0 [facility] Comment on above: Performed By: #### H EMDF, BMP3 #### [facility] [address] [place] [address] MCHC 34.1 % Normal 32.0-36.0 [facility] Comment on above: Performed By: #### H EMDF, BMP3 #### [facility] [address] [place] [address] MCV (RBC) [Entitic vol] 92.0 fL Normal 80.0-98.0 [facility] Comment on above: Performed By: #### H EMDF, BMP3 #### [facility] [address] [place] [address] Monocytes (Bld) [#/Vol] 0.8 10*3/uL Normal 0.0-0.8 [facility] Comment on above: Performed By: #### H EMDF, BMP3 #### [facility] [address] [place] [address] Monocytes/100 WBC (Bld) 5.4 % Normal 2.0-10.0 [facility] Comment on above: Performed By: #### H EMDF, BMP3 #### [facility] [address] [place] [address] Platelet mean volume (Bld) [Entitic vol] 9.0 fL Normal 7.4-10.4 [facility] Comment on above: Performed By: #### H EMDF, BMP3 #### [facility] [address] [place] [address] Platelets (Bld) [#/Vol] 211 10*3/uL Normal 140-440 [facility] Comment on above: Performed By: #### H EMDF, BMP3 #### [facility] [address] [place] [address] RBC (Bld) [#/Vol] 3.96 10*6/uL Low 4.40-5.90 [facility] Comment on above: Performed By: #### H EMDF, BMP3 #### [facility] [address] [place] [address] WBC (Bld) [#/Vol] 15.1 10*3/uL High 3.6-10.7 [facility] Comment on above: Performed By: #### [facility] #### [facility] [address] [place] [address] No Panel Informationon 03-23 Interpretation and review of laboratory results Abnormal [facility] Work Phone: Test Performed by [facility], [facility] [address] LAB [facility] Work Phone: POCT Glucoseon 03-23-2021 Glucose [Mass/Vol] 166 mg/dL High 70 - 100 mg/dL [facility] Comment on above: Test performed by gl ucose meter. Results may be 10%-15% lower than serum/plasma values. (CLIA ID [id number]) Interpretation and review of laboratory results Abnormal [facility] Test Performed by [facility], [address] LAB [facility] Glucose [Mass/Vol] 122 mg/dL High 70 - 100 mg/dL [facility] Work Phone: Comment on above: Test performed by gl ucose meter. Results may be 10%-15% lower than serum/plasma values. (CLIA ID [id number]) Glucose [Mass/Vol] 136 mg/dL High 70 - 100 mg/dL [facility] Comment on above: Test performed by gl ucose meter. Results may be 10%-15% lower than serum/plasma values. (CLIA ID [id number]) Interpretation and review of laboratory results Abnormal [facility] Test Performed by [facility], [facility] [address] LAB [facility] CBC Auto Differentialon 03-02 Absolute Baso # 0.0 10*3/uL 0.0 - 0.2 10*3/uL [facility] Absolute Neut # 12.3 10*3/uL High 1.8 [...] - 10.7 10*3/uL [facility] Test Performed by [facility], [address] [place], [place] [id number] [place] [address] LAB [facility] Glucose,Bedsideon 03-22-2021 Glucose [Mass/Vol] 134 mg/dL High 70-100 [facility] Comment on above: Result Comment: Test performed by glucose meter. Results may be 10%-15% lower than serum/plasma values. (CLIA ID [id number]) Performed By: #### H EMDF, BMP3 #### [facility] [address] [place] [address] Glucose [Mass/Vol] 190 mg/dL High 70-100 [facility] Comment on above: Result Comment: Test performed by glucose meter. Results may be 10%-15% lower than serum/plasma values. (CLIA ID [id number]) Performed By: #### B GLU #### [facility] [address] [facility] [place] [address] Glucose [Mass/Vol] 200 mg/dL [facility] [address] [place] [address] Comment on above: Result Comment: Test performed by glucose meter. Results may be 10%-15% lower than serum/plasma values. (CLIA ID [id number]) Performed By: #### B GLU #### [facility] [address] [facility] [place] [address] Glucose [Mass/Vol] 181 mg/dL [facility] [address] [facility] Comment on above: Result Comment: Test performed by glucose meter. Results may be 10%-15% lower than serum/plasma values. (CLIA ID [id number]) Performed By: #### B GLU #### [facility] [address] [place] [address] Glucose [Mass/Vol] 186 mg/dL [facility] [address] [place] [address] Comment on above: Result Comment: Test performed by glucose meter. Results may be 10%-15% lower than serum/plasma values. (CLIA ID [id number]) Performed By: #### B GLU #### [facility] [address] [place] [address] Hemoglobin A1Con 03-22-2021 Glucose [Mass/Vol] 108 mg/dL Normal [facility] Comment on above: Performed By: #### B GLU #### [facility] [address] [place] [address] HbA1c (Bld) [Mass fraction] 5.4 % Normal [facility] Comment on above: Result Comment: Norm al less than 5.7% Prediabetes 5.7% to 6.4% Diabetes 6.5% or higher --HgbA1C levels may not be accurate in patients who have renal disease, received recent blood transfusions, are anemic, or who have dyshemoglobinemia. Performed By: #### B GLU #### [facility] [address] [place] [address] HbA1c (Bld) [Mass fraction] 5.4 % [facility] Comment on above: Normal less than 5.7 % Prediabetes 5.7% to 6.4% Diabetes 6.5% or higher --HgbA1C levels may not be accurate in patients who have renal disease, received recent blood transfusions, are anemic, or who have dyshemoglobinemia. Magnesium [Mass/Vol] 108 mg/dL [facility] Test Performed by [facility], [facility] [address] [place] [address] [facility] LAB [facility] Hemogram w/ Autodiffon 03-22 Abs Baso Cnt 0.0 10*3/uL Normal 0.0-0.2 [facility] Comment on above: Performed By: #### B GLU #### [facility] [address] [place] [address] Abs Neutrophile Cnt 12.3 10*3/uL High 1.8-7.0 [facility] Comment on above: Performed By: #### B GLU #### [facility] [address] [place] [address] Basophils/100 WBC (Bld) 0.2 % Normal 0.0-2.0 [facility] Comment on above: Performed By: #### B GLU #### [facility] [address] [place] [address] Eosinophils (Bld) [#/Vol] 0.0 10*3/uL Normal 0.0-0.5 [facility] Comment on above: Performed By: #### B GLU #### [facility] [address] [place] [address] Eosinophils/100 WBC (Bld) 0.0 % Low 1.0-6.0 [facility] Comment on above: Performed By: #### B GLU #### [facility] [address] [place] [address] Erythrocyte distribution width (RBC) [Ratio] 12.8 % Normal 11.5-14.5 [facility] Comment on above: Performed By: #### B GLU #### [facility] [address] [place] [address] Granulocytes/100 WBC (Bld) 92.7 % High 40.0-80.0 [facility] Comment on above: Performed By: #### B GLU #### [facility] [address] [place] [address] Hematocrit (Bld) [Volume fraction] 35.9 % Low 40.0-52.0 [facility] Comment on above: Performed By: #### B GLU #### [facility] [address] [place] [address] Hemoglobin (Bld) [Mass/Vol] 12.4 g/dL Low 13.0-18.0 [facility] Comment on above: Performed By: #### B GLU #### [facility] [address] [place] [address] Lymphocytes (Bld) [#/Vol] 0.5 10*3/uL Low 1.0-4.3 [facility] Comment on above: Performed By: #### B GLU #### [facility] [address] [place] [address] Lymphocytes/100 WBC (Bld) 3.6 % Low 20.0-40.0 [facility] Comment on above: Performed By: #### B GLU #### [facility] [address] [place] [address] MCH (RBC) [Entitic mass] 31.6 pg Normal 26.0-34.0 [facility] Comment on above: Performed By: #### B GLU #### [facility] [address] [place] [address] MCHC 34.6 % Normal 32.0-36.0 [facility] Comment on above: Performed By: #### B GLU #### [facility] [address] [place] [address] MCV (RBC) [Entitic vol] 91.2 fL Normal 80.0-98.0 [facility] Comment on above: Performed By: #### B GLU #### [facility] [address] [place] [address] Monocytes (Bld) [#/Vol] 0.5 10*3/uL Normal 0.0-0.8 [facility] Comment on above: Performed By: #### B GLU #### [facility] [address] [place] [address] Monocytes/100 WBC (Bld) 3.5 % Normal 2.0-10.0 [facility] Comment on above: Performed By: #### B GLU #### [facility] [address] [place] [address] Platelet mean volume (Bld) [Entitic vol] 9.5 fL Normal 7.4-10.4 [facility] Comment on above: Performed By: #### B GLU #### [facility] [address] [place] [address] Platelets (Bld) [#/Vol] 158 10*3/uL Normal 140-440 [facility] Comment on above: Performed By: #### B GLU #### [facility] [address] [place] [address] RBC (Bld) [#/Vol] 3.93 10*6/uL Low 4.40-5.90 [facility] Comment on above: Performed By: #### B GLU #### [facility] [address] [place] [address] WBC (Bld) [#/Vol] 13.3 10*3/uL High 3.6-10.7 [facility] Comment on above: Performed By: #### B GLU #### [facility] [address] [place] [address] MRSA by PCRon 03-22-2021 Staph Aureus Sc No S. aureus detected. Negative nasal MRSA PCR has a high negative predictive value for MRSA pneumonia. Consider stopping vancomycin if no other clinical indication. Contact Antimicrobial Stewardship for further recommendations. The analytical performance characteristics of this assay have been determined by [facility] in accordance with CLIA regulations. The modifications have not been cleared or approved by the U. S. Food and Drug Administration; however, the FDA has determined that such clearance or approval is not necessary. [facility] Test Performed by [facility], [address] [place] [address] [facility] LAB [facility] POCT GlucoseOrdered By: Pascual Morgan on 03-22-2021 Glucose [Mass/Vol] 134 mg/dL High 70 - 100 mg/dL [facility] Work Phone: Comment on above: Test performed by gl ucose meter. Results may be 10%-15% lower than serum/plasma values. (CLIA ID [id number]) Interpretation and review of laboratory results Abnormal [facility] Work Phone: [facility] Work Phone: POCT Glucoseon 03-22-2021 Test Performed by [facility], [address] LAB Glucose [Mass/Vol] 190 mg/dL High 70 - 100 mg/dL [facility] Comment on above: Test performed by gl ucose meter. Results may be 10%-15% lower than serum/plasma values. (CLIA ID [id number]) Interpretation and review of laboratory results Abnormal [facility] Test Performed by [facility], [address] LAB [facility] Glucose [Mass/Vol] 200 mg/dL High 70 - 100 mg/dL [facility] Comment on above: Test performed by gl ucose meter. Results may be 10%-15% lower than serum/plasma values. (CLIA ID [id number]) Interpretation and review of laboratory results Abnormal [facility] Test Performed by [facility], [address] LAB [facility] Glucose [Mass/Vol] 181 mg/dL High 70 - 100 mg/dL [facility] Comment on above: Test performed by gl ucose meter. Results may be 10%-15% lower than serum/plasma values. (CLIA ID [id number]) Interpretation and review of laboratory results Abnormal [facility] Test Performed by [facility], [address], [place], [place] [address] [facility] LAB [facility] Glucose [Mass/Vol] 186 mg/dL High 70 - 100 mg/dL [facility] Comment on above: Test performed by gl ucose meter. Results may be 10%-15% lower than serum/plasma values. (CLIA ID [id number]) Interpretation and review of laboratory results Abnormal [facility] Test Performed by [facility], [address], [place], [place] [address] [facility] LAB [facility] Procalcitoninon 03-22-2021 Procalcitonin 0.09 ng/mL Normal 0.00-0.09 [facility] Comment on above: Performed By: #### H EMD, BMP3 #### [facility] [address] [place] [address] Interpretation See Below [facility] Comment on above: PCT <0.50 = Low risk of severe sepsis and/or septic shock. PCT >2.00 = High risk of severe sepsis and/or septic shock. Procalcitonin 0.09 ng/mL 0.00 - 0.09 ng/mL [facility] Test Performed by [facility], [address] [place], [place] [id number] [place] [address] LAB [facility] Staph Aureus Complete Nasalo n 03-22-2021 Staph Aureus Complete Nasal Staph Screen --> Status: F No S. aureus detected. Negative nasal MRSA PCR has a high negative predictive value for MRSA pneumonia. Consider stopping vancomycin if no other clinical indication. Contact Antimicrobial Stewardship for further recommendations. The analytical performance characteristics of this assay have been determined by [facility] in accordance with CLIA regulations. The modifications [...] of this assay have been determined by [employer] in accordance with CLIA regulations. The modifications have not been cleared or approved by the U. S. Food and Drug Administration; however, the FDA has determined that such clearance or approval is not necessary. Normal [facility] Comment on above: Performed By: #### S APCR ####[facility] [place] [address] Vancomycin Troughon 03-22-20 21 Vancomycin Trough 8.1 ug/mL Low 15.0-20.0 [facility] Comment on above: Result Comment: . Performed By: #### B GLU #### [facility] [address] [place] [address] Vancomycin, Troughon 021 Interpretation and review of laboratory results Abnormal [facility] Vancomycin Tr 8.1 ug/mL Low 15.0 - 20.0 ug/mL [facility] Comment on above: . Test Performed by [facility], [address] [place] [address] [facility] LAB [facility] Basic Metabolic Panelon 03-02 Anion gap [Moles/Vol] 7 mmol/L Normal 3-13 [facility] Comment on above: Performed By: #### H MAYKEL BMP3 #### [facility] [address] [place] [address] Calcium [Mass/Vol] 8.1 mg/dL Low 8.4-10.4 [facility] Comment on above: Performed By: #### H MAYKEL BMP3 #### [facility] [address] [place] [address] CO2 [Moles/Vol] 26 mmol/L Normal 22-30 [facility] Comment on above: Performed By: #### H MAYKEL BMP3 #### [facility] [address] [place] [address] Glucose [Mass/Vol] 156 mg/dL High 70-100 [facility] Comment on above: Performed By: #### H MAYKEL BMP3 #### [facility] [address] [place] [address] Urea nitrogen [Mass/Vol] 19 mg/dL High 7-17 [facility] Comment on above: Performed By: #### H EMDF, BMP3 #### [facility] [address] [place] [address] Creatinine [Mass/Vol] 0.53 mg/dL Normal 0.52-1.25 [facility] Comment on above: Performed By: #### H MAYKEL BMP3 #### [facility] [address] [place] [address] eGFR OTHER > 90.0 Normal >60 [facility] Comment on above: Result Comment: KDIG [...] Performed By: #### H MAYKEL BMP3 #### [facility] [address] [place] [address] GFR/1.73 sq M.predicted among blacks MDRD (S/P/Bld) [Vol rate/Area] mL/min/{1.73_m2} Normal >60 [facility] Comment on above: Performed By: #### H MAYKEL BMP3 #### [facility] [address] [place] [address] Chloride [Moles/Vol] 103 mmol/L Normal 98-107 [facility] Comment on above: Performed By: #### H MAYKEL BMP3 #### [facility] [address] [place] [address] Potassium [Moles/Vol] 3.4 mmol/L Low 3.5-5.1 [facility] Comment on above: Performed By: #### H MAYKEL BMP3 #### [facility] [address] [place] [address] Sodium [Moles/Vol] 136 mmol/L Normal 135-145 [facility] Comment on above: Performed By: #### H MAYKEL, BMP3 #### [facility] [employer] [facility] [address] [place] [address] Basic Metabolic Panel w/ Ref marciano to MGon 03-21-2021 Anion gap [Moles/Vol] 7 mmol/L 3 - 13 mmol/L [facility] Work Phone: Calcium [Mass/Vol] 8.1 mg/dL Low 8.4 - 10. 4 mg/dL [facility] Work Phone: Chloride [Moles/Vol] 103 mmol/L 98 - 10 7 mmol/L [facility] Work Phone: CO2 [Moles/Vol] 26 mmol/L 22 - 30 mmol/L [facility] Work Phone: Creatinine [Mass/Vol] 0.53 mg/dL 0.52 - 1.25 mg/dL [facility] Work Phone: EGFR IF NonAfrican Haitian >90.0 >60 mL/min [facility] Work Phone: Comment [...] Interpretation and review of laboratory results Abnormal [facility] Work Phone: Potassium [Moles/Vol] 3.4 mmol/L Low 3.5 - 5.1 mmol/L [employer] Work Phone: Sodium [Moles/Vol] 136 mmol/L 135 - 145 mmol/L [facility] Work Phone: Urea nitrogen (BldV) [Mass/Vol] 19 mg/dL High 7 - 17 mg/dL [facility] Work Phone: Test Performed by [facility] [employer] [facility], [facility] [place], [place] [id number] [place] [address] LAB [facility] Work Phone: CBCon 03-21-2021 Hematocrit (Bld) [Volume fraction] 35.4 % Low 40.0 - 52.0 % [facility] Work Phone: Hemoglobin.gastrointest inal spec 1 Ql (Stl) 11.9 g/dL Low 13.0 - 18.0 g/dL [facility] Work Phone: Interpretation and review of laboratory results Abnormal [facility] Work Phone: MCH (RBC) [Entitic mass] 30.5 pg 26.0 - 34.0 pg [facility] Work Phone: MCHC (RBC) [Mass/Vol] 33.7 % 32.0 - 36.0 % [facility] Work Phone: MCV (RBC) [Entitic vol] 90.6 fL 80.0 - 98.0 fL [facility] Work Phone: Platelet distribution width (Bld) [Ratio] 13.1 % 11.5 - 14.5 % [facility] Work Phone: Platelet mean volume (Bld) [Entitic vol] 9.1 fL 7.4 - 10.4 fL [facility] Work Phone: Platelets (Bld) [#/Vol] 136 10*3/uL Low 140 - 440 10*3/uL [facility] Work Phone: RBC (Bld) [#/Vol] 3.91 10*6/uL Low 4.40 - 5.9 0 10*6/uL [facility] Work Phone: WBC (Bld) [#/Vol] 7.1 10*3/uL 3.6 - 10.7 10*3/uL [facility] Work Phone: Test Performed by [facility], [address] [place], [place] [address] [facility] LAB [facility] Work Phone: Glucose,Bedsideon 03-21-2021 Glucose [Mass/Vol] 131 mg/dL High 70-100 [facility] Comment on above: Result Comment: Test performed by glucose meter. Results may be 10%-15% lower than serum/plasma values. (CLIA ID [id number]) Performed By: #### B GLU #### [facility] [employer] [address] [place] [address] Glucose [Mass/Vol] 230 mg/dL High 70-100 [facility] Comment on above: Result Comment: Test performed by glucose meter. Results may be 10%-15% lower than serum/plasma values. (CLIA ID [id number]) Performed By: #### B GLU #### [facility] [address] [place] [address] Hemogramon 03-21-2021 Erythrocyte distribution width (RBC) [Ratio] 13.1 % Normal 11.5-14.5 [facility] Comment on above: Performed By: #### H EMDF BMP3 #### [facility] [employer] [employer] [facility] [address] [place] [address] Hematocrit (Bld) [Volume fraction] 35.4 % Low 40.0-52.0 [facility] Comment on above: Performed By: #### H EMDF BMP3 #### [facility] [address] [place] [address] Hemoglobin (Bld) [Mass/Vol] 11.9 g/dL Low 13.0-18.0 [facility] Comment on above: Performed By: #### H EMDF BMP3 #### [facility] [address] [place] [address] MCH (RBC) [Entitic mass] 30.5 pg Normal 26.0-34.0 [facility] Comment on above: Performed By: #### H EMDF, BMP3 #### [facility] [address] [place] [address] MCHC 33.7 % Normal 32.0-36.0 [facility] Comment on above: Performed By: #### H EMDMaurice, BMP3 #### [facility] [address] [place] [address] MCV (RBC) [Entitic vol] 90.6 fL Normal 80.0-98.0 [facility] Comment on above: Performed By: #### H EMDF, BMP3 #### [facility] [address] [place] [address] Platelet mean volume (Bld) [Entitic vol] 9.1 fL Normal 7.4-10.4 [facility] Comment on above: Performed By: #### H EMDF, BMP3 #### [facility] [address] [place] [address] Platelets (Bld) [#/Vol] 136 10*3/uL Low 140-440 [facility] Comment on above: Performed By: #### H EMDF, BMP3 #### [facility] [address] [place] [address] RBC (Bld) [#/Vol] 3.91 10*6/uL Low 4.40-5.90 [facility] Comment on above: Performed By: #### H EMDF, BMP3 #### [facility] [address] [place] [address] WBC (Bld) [#/Vol] 7.1 10*3/uL Normal 3.6-10.7 [facility] Comment on above: Performed By: #### H EMDF, BMP3 #### [facility] [address] [place] [address] Magnesiumon 03-21-2021 Magnesium [Mass/Vol] 2.2 mg/dL Normal 1.6-2.3 [facility] Comment on above: Performed By: #### H MAYKEL, BMP3 #### [facility] [address] [place] [address] Magnesium [Mass/Vol] 2.2 mg/dL 1.6 - 2 .3 mg/dL [facility] Work Phone: Test Performed by [facility], [address], [place], [place] [address] [facility] LAB [facility] Work Phone: POCT Glucoseon 03-21-2021 Glucose [Mass/Vol] 131 mg/dL High 70 - 100 mg/dL [facility] Comment on above: Test performed by gl ucose meter. Results may be 10%-15% lower than serum/plasma values. (CLIA ID [id number]) Interpretation and review of laboratory results Abnormal [facility] Test Performed by [facility], [address], [place], [place] [id number] [place] [address] LAB [facility] Glucose [Mass/Vol] 230 mg/dL High 70 - 100 mg/dL [facility] Comment on above: Test performed by gl ucose meter. Results may be 10%-15% lower than serum/plasma values. (CLIA ID [id number]) Interpretation and review of laboratory results Abnormal [facility] Test Performed by [facility], [address], [place], [place] [id number] [place] [address] LAB [facility] Procalcitoninon 03-21-2021 Interpretation See Below Normal [facility] Comment on above: Result Comment: PCT <0.50 = Low risk of severe sepsis and/or septic shock. PCT >2.00 = High risk of severe sepsis and/or septic shock. Performed By: #### H MAYKEL BMP3 #### [facility] [address] [place] [address] Basic Metabolic Panelon 03-02 Calcium [Mass/Vol] 8.4 mg/dL Normal 8.4-10.4 [facility] Comment on above: Performed By: #### H EMDF, BMP3 #### [facility] [address] [place] [address] Anion gap [Moles/Vol] 6 mmol/L Normal 3-13 [facility] Comment on above: Performed By: #### H EMDF, BMP3 #### [facility] [address] [place] [address] CO2 [Moles/Vol] 27 mmol/L Normal 22-30 [facility] Comment on above: Performed By: #### H EMDF, BMP3 #### [facility] [address] [place] [address] Glucose [Mass/Vol] 106 mg/dL High 70-100 [facility] Comment on above: Performed By: #### H EMDF, BMP3 #### [facility] [address] [place] [address] Urea nitrogen [Mass/Vol] 14 mg/dL Normal 7-17 [facility] Comment on above: Performed By: #### H EMDF, BMP3 #### [facility] [address] [place] [address] Creatinine [Mass/Vol] 0.51 mg/dL Low 0.52-1.25 [facility] Comment on above: Performed By: #### H EMDF, BMP3 #### [facility] [address] [place] [address] eGFR OTHER > 90.0 Normal >60 [facility] Comment on above: Result Comment: KDIG [...] Performed By: #### H EMDF, BMP3 #### [facility] [address] [place] [address] GFR/1.73 sq M.predicted among blacks MDRD (S/P/Bld) [Vol rate/Area] mL/min/{1.73_m2} Normal >60 [facility] Comment on above: Performed By: #### H MAYKEL, BMP3 #### [facility] [address] [place] [address] Chloride [Moles/Vol] 104 mmol/L Normal 98-107 [facility] Comment on above: Performed By: #### H ALCIRAF, BMP3 #### [facility] [address] [place] [address] Potassium [Moles/Vol] 3.9 mmol/L Normal 3.5-5.1 [facility] Comment on above: Performed By: #### H MAYKEL, BMP3 #### [facility] [address] [place] [address] Sodium [Moles/Vol] 137 mmol/L Normal 135-145 [facility] Comment on above: Performed By: #### H MAYKEL, BMP3 #### [facility] [address] [place] [address] Anion gap [Moles/Vol] 6 mmol/L 3 - 13 mmol/L [facility] Work Phone: Calcium [Mass/Vol] 8.4 mg/dL 8.4 - 10. 4 mg/dL [facility] Work Phone: Chloride [Moles/Vol] 104 mmol/L 98 - 10 7 mmol/L [facility] Work Phone: CO2 [Moles/Vol] 27 mmol/L 22 - 30 mmol/L [facility] Work Phone: Creatinine [Mass/Vol] 0.51 mg/dL Low 0.52 - 1.25 mg/dL [facility] Work Phone: EGFR IF NonAfrican Haitian >90.0 >60 mL/min [facility] Work Phone: Comment on above: KDIGO guidelines [...] MDRD (S/P/Bld) [Vol rate/Area] mL/min/{1.73_m2} >60 mL/min [facility] Work Phone: Glucose [Mass/Vol] 106 mg/dL High 70 - 100 mg/dL [facility] Work Phone: Interpretation and review of laboratory results Abnormal [facility] Work Phone: Potassium [Moles/Vol] 3.9 mmol/L 3.5 - 5.1 mmol/L [facility] Work Phone: Sodium [Moles/Vol] 137 mmol/L 135 - 145 mmol/L [facility] Work Phone: Urea nitrogen (BldV) [Mass/Vol] 14 mg/dL 7 - 17 mg/dL [facility] Work Phone: Test Performed by [facility], [address] [place], [place] [address] [facility] LAB [facility] Work Phone: C-Reactive Proteinon 11-20-2 021 CRP [Mass/Vol] 228.1 mg/L High 0.0-9.9 [facility] Comment on above: Result Comment: . Performed By: #### H MAYKEL BMP3 #### [facility] [address] [place] [address] CRP [Mass/Vol] 228.1 mg/L High 0.0 - 9.9 mg/L [facility] Work Phone: Comment on above: . Interpretation and review of laboratory results Abnormal [facility] Work Phone: Test Performed by [facility], [address] [place], [place] [id number] [place] [address] LAB [facility] Work Phone: COVID and Resp PCR Panelon 1 05-20-2020 SARS-CoV-2 (COVID-19) RNA SHIRLEY+probe Ql (Unsp spec) COVID and Resp PCR Panel --> Status: F POSITIVE: Respiratory Syncytial Virus DETECTED. _ Expected Result: Not Detected The [employer] Upper Respiratory Pathogens PCR Panel can detect the following targets: SARS-CoV-2, Adenovirus, Coronavirus 229E, Coronavirus HKU1, Coronavirus NL63, Coronavirus OC43, Human Metapneumovirus, Human Rhinovirus/Enteroviru s, Influenza A, Influenza B, Parainfluenza Virus 1, Parainfluenza Virus 2, Parainfluenza Virus 3, Parainfluenza Virus 4, Respiratory Syncytial Virus, Bordetella pertussis, Bordetella parapertussis, Chlamydia pneumoniae, Mycoplasma pneumoniae. Method: Real-time PCR. _ Expected Result: Not Detected The [employer] Upper Respiratory Pathogens PCR Panel can detect the following targets: SARS-CoV-2, Adenovirus, Coronavirus 229E, Coronavirus HKU1, Coronavirus NL63, Coronavirus OC43, Human Metapneumovirus, Human Rhinovirus/Enteroviru s, Influenza A, Influenza B, Parainfluenza Virus 1, Parainfluenza Virus 2, Parainfluenza Virus 3, Parainfluenza Virus 4, Respiratory Syncytial Virus, Bordetella pertussis, Bordetella parapertussis, Chlamydia pneumoniae, Mycoplasma pneumoniae. Method: Real-time PCR. 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 : 1955 Requested By: BRADY DESAI Order Number: [id number] Reading MD: Fei Menjivar Measurements Intervals Filer Rate: 102 P: 71 MT: 172 QRS: -30 QRSD: 156 T: 85 QT: 412 QTc: 537 Interpretive Statements SINUS TACHYCARDIA LEFT BUNDLE BRANCH BLOCK Electronically Signed On 03-20-2021 22:47:41 EST by Fei BARNETT CARDIOLOGY Tiara, Fei Cotto MD - 03/20/2021 [facility] Test Date: 2021-03-19 Pat Name: KATHYA HOOPER Department: 1 Room: [facility] Gender: M 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 Comment on above: Performed By: #### H EMD, BMP3 #### [facility] [address] [place] [address] Lactic Acid, Plasmaon 2020 Lactate [Moles/Vol] 0.7 mmol/L 0.7 - 2. 0 mmol/L [facility] Work Phone: Test Performed by [facility], [address] [place], [place] [id number] [place] [address] LAB [facility] Work Phone: PROCALCITONINon 03-20-2021 Interpretation See Below [facility] Work Phone: Comment on above: PCT <0.50 = Low risk of severe sepsis and/or septic shock. PCT >2.00 = High risk of severe sepsis and/or septic shock. Interpretation and review of laboratory results Abnormal [facility] Work Phone: Test [facility], [address] [place] [id number] [facility] LAB [facility] Work Phone: Procalcitoninon 03-20-2021 Procalcitonin 0.14 ng/mL High 0.00-0.09 [facility] Work Phone: Comment on above: Performed By: #### H EMDF, BMP3 #### [employer] [facility] [address] [place] [address] Interpretation See Below Normal [facility] Comment on above: Result Comment: PCT <0.50 = Low risk of severe sepsis and/or septic shock. PCT >2.00 = High risk of severe sepsis and/or septic shock. Performed By: #### H EMDF, BMP3 #### [facility] [employer] [facility] [address] [place] [address] Troponinon 03-20-2021 Interpretation and review of laboratory results Abnormal [facility] Work Phone: Troponin I.cardiac [Mass/Vol] 0.037 ng/mL High 0.000 - 0.034 ng/mL [facility] Work Phone: Comment on above: . Test Per[facility], [address] [place], [place] [address] [facility] LAB [facility] Work Phone: Troponin Ion 03-20-2021 Troponin I.cardiac [Mass/Vol] 0.037 ng/mL High 0.000-0.034 [facility] Comment on above: Result Comment: . Performed By: #### H EMDF, BMP3 #### [facility] [employer] [facility] [address] [place] [address] Arterial Blood Gas Respirato yasmine 03-19-2021 Base Excess 1.2 mmol/L Normal -3.0-3.0 [facility] Comment on above: Performed By: #### B GLU #### [facility] [address] [place] [address] CO2 [Moles/Vol] 25.6 mmol/L Normal 23.0-27.0 [facility] Comment on above: Performed By: #### B GLU #### [facility] [address] [place] [address] FIO2 5 Normal [facility] Comment on above: Result Comment: Perf ormed by CLIA ID: [id number] [place], [place] Performed By: #### B GLU #### [facility] [address] [place] [address] HCO3 (Bld) [Moles/Vol] 24.6 mmol/L Normal 21.0-25.0 [facility] Comment on above: Performed By: #### B GLU #### [facility] [address] [place] [address] Oxygen (Bld) [Partial pressure] 56.7 mm[Hg] Low 80.0-100.0 [facility] Comment on above: Performed By: #### B GLU #### [facility] [address] [place] [address] Oxygen saturation in Blood 91.0 % Low 95.0-100.0 [facility] Comment on above: Performed By: #### B GLU #### [facility] [address] [place] [address] pCO2 33.9 mm[Hg] Low 35.0-45.0 [facility] Comment on above: Performed By: #### B GLU #### [facility] [address] [place] [address] pH 7.468 High 7.350-7.450 [facility] Comment on above: Performed By: #### B GLU #### [facility] [address] [place] [address] Basic Metabolic Panelon 11-1 Anion gap [Moles/Vol] 9 mmol/L Normal 3-13 [facility] Comment on above: Performed By: #### B MP3, TROPN ####[facility] [place] [address] Calcium [Mass/Vol] 8.5 mg/dL Normal 8.4-10.4 [facility] Comment on above: Performed By: #### B MP3, TROPN ####[facility] [place] [address] CO2 [Moles/Vol] 26 mmol/L Normal 22-30 [facility] Comment on above: Performed By: #### B MP3, TROPN ####[place] [address] [place] [address] Creatinine [Mass/Vol] 0.48 mg/dL Low 0.52-1.25 [facility] Comment on above: Performed By: #### B MP3, TROPN ####[place] [address] [place] [address] eGFR OTHER > 90.0 Normal >60 [facility] Comment on above: Result Comment: KDIG [...] secretion. Performed By: #### Anamika LOPEZ3, TROPN ####[facility] [place] [address] GFR/1.73 sq M.predicted among blacks MDRD (S/P/Bld) [Vol rate/Area] mL/min/{1.73_m2} Normal >60 [facility] Comment on above: Performed By: #### B MP3, TROPN ####[address] [place] [address] Glucose [Mass/Vol] 132 mg/dL High 70-100 [facility] Comment on above: Performed By: #### B MP3, TROPN ####[address] [place] [address] Urea nitrogen [Mass/Vol] 16 mg/dL Normal 7-17 [facility] Comment on above: Performed By: #### Anamika MP3, TROPN ####[facility] [place] [address] Chloride [Moles/Vol] 102 mmol/L Normal 98-107 [facility] Comment on above: Performed By: #### Anamika MP3, TROPN ####[facility] [place] [address] Potassium [Moles/Vol] 4.1 mmol/L Normal 3.5-5.1 [facility] Comment on above: Performed By: #### B MP3, TROPN ####[facility] [place] [address] Sodium [Moles/Vol] 137 mmol/L Normal 135-145 [facility] Comment on above: Performed By: #### Anamika MP3, TROPN ####[facility] [place] [address] Anion gap [Moles/Vol] 9 mmol/L 3 - 13 mmol/L [facility] Calcium [Mass/Vol] 8.5 mg/dL 8.4 - 10. 4 mg/dL [facility] Chloride [Moles/Vol] 102 mmol/L 98 - 10 7 mmol/L [facility] CO2 [Moles/Vol] 26 mmol/L 22 - 30 mmol/L [facility] Creatinine [Mass/Vol] 0.48 mg/dL Low 0.52 - 1.25 mg/dL [facility] EGFR IF NonAfrican Haitian >90.0 >60 mL/min [facility] Comment on above: KDIGO guidelines pro vide [...] [Mass/Vol] 16 mg/dL 7 - 17 mg/dL [facility] Test Performed by [facility], [address] [place] [id number] [place] [address] LAB [facility] CBC Auto Differentialon 03-01 Absolute Baso # [...] Interpretation and review of laboratory results Abnormal [facility] RSV PCR DETECTED Expected Result: Not Detected _ Method: Real-time, RT-PCR This assay was developed by [employer] and distributed under an Emergency Use Authorization (EUA) granted by the FDA for the qualitative detection of nucleic acids from SARS-CoV-2, Influenza A, Influenza B, and Respiratory Syncytial Virus. Provider and patient fact sheets can be found at https://www.fda.gov/m edia/229241/download and https://www.fda.gov/m edia/396297/download. Abnormal [facility] SARS-CoV-2 (COVID-19) RNA SHIRLEY+probe Ql (Unsp spec) Not detected [facility] Test Performed by [facility], [address] [place], [place] [id number] [place] [address] LAB [facility] CR Chest Portableon 03-19-20 21 CR Chest Portable Patient Name: KATHYA HOOPER Diagnostic Radiology ACCESSION EXAM DATE/TIME PROCEDURE ORDERING PROVIDER [id number] 03/19/2021 17:10 EST CR Chest Portable [id number] -BRADY DESAI CPT code 91844 Reason For Exam (CR Chest Portable) hypoxia [...] Transcribed Date and Time: 03/19/2021 5:22 Normal [facility] ED Provider Noteon ED Provider Note Emergency Department Encounter [facility] ED Patient: Kathya Hooper : 1955 Date of Evaluation: 03/19/2021 ED Provider: Brady Desai DO Chief Complaint Chief Complaint Patient presents with ? Shortness of Breath CAHTO I wore appropriate PPE for the entirety of this encounter. Does this patient come from an ECF, SNF, Rehab, Chcf or other Congregate setting: yes (If yes [...] otherwise acutely negative except as in the CAHTO. Past History Past Medical History: Diagnosis Date [...] and Family: Not on file ? Attends [employer] Services: Not on file ? Active Member [...] TABLET T (more content not included)... Normal [facility] Hemogram w/ Autodiffon 03-19 Abs Baso Cnt 0.1 10*3/uL Normal 0.0-0.2 [facility] Comment on above: Performed By: #### B GLU #### [facility] [address] [place] [address] Abs Neutrophile Cnt 7.2 10*3/uL High 1.8-7.0 [facility] Comment on above: Performed By: #### B GLU #### [facility] [address] [place] [address] Basophils/100 WBC (Bld) 0.6 % Normal 0.0-2.0 [facility] Comment on above: Performed By: #### B GLU #### [facility] [address] [place] [address] Eosinophils (Bld) [#/Vol] 0.0 10*3/uL Normal 0.0-0.5 [facility] Comment on above: Performed By: #### B GLU #### [facility] [address] [place] [address] Eosinophils/100 WBC (Bld) 0.2 % Low 1.0-6.0 [facility] Comment on above: Performed By: #### B GLU #### [place] [address] [place] [address] Erythrocyte distribution width (RBC) [Ratio] 13.0 % Normal 11.5-14.5 [facility] Comment on above: Performed By: #### B GLU #### [facility] [address] [place] [address] Granulocytes/100 WBC (Bld) 79.0 % Normal 40.0-80.0 [facility] Comment on above: Performed By: #### B GLU #### [facility] [address] [place] [address] Hematocrit (Bld) [Volume fraction] 38.5 % Low 40.0-52.0 [facility] Comment on above: Performed By: #### B GLU #### [facility] [address] [place] [address] Hemoglobin (Bld) [Mass/Vol] 13.1 g/dL Normal 13.0-18.0 [facility] Comment on above: Performed By: #### B GLU #### [place] [address] [place] [address] Lymphocytes (Bld) [#/Vol] 1.0 10*3/uL Normal 1.0-4.3 [facility] Comment on above: Performed By: #### B GLU #### [facility] [address] [place] [address] Lymphocytes/100 WBC (Bld) 10.8 % Low 20.0-40.0 [facility] Comment on above: Performed By: #### B GLU #### [facility] [address] [place] [address] MCH (RBC) [Entitic mass] 30.9 pg Normal 26.0-34.0 [facility] Comment on above: Performed By: #### B GLU #### [facility] [address] [place] [address] MCHC 33.9 % Normal 32.0-36.0 [facility] Comment on above: Performed By: #### B GLU #### [facility] [address] [place] [address] MCV (RBC) [Entitic vol] 91.1 fL Normal 80.0-98.0 [facility] Comment on above: Performed By: #### B GLU #### [facility] [address] [place] [address] Monocytes (Bld) [#/Vol] 0.9 10*3/uL High 0.0-0.8 [facility] Comment on above: Performed By: #### B GLU #### [facility] [address] [place] [address] Monocytes/100 WBC (Bld) 9.4 % Normal 2.0-10.0 [facility] Comment on above: Performed By: #### B GLU #### [facility] [address] [place] [address] Platelet mean volume (Bld) [Entitic vol] 9.9 fL Normal 7.4-10.4 [facility] Comment on above: Performed By: #### B GLU #### [facility] [address] [place] [address] Platelets (Bld) [#/Vol] 163 10*3/uL Normal 140-440 [facility] Comment on above: Performed By: #### B GLU #### [facility] [address] [place] [address] RBC (Bld) [#/Vol] 4.23 10*6/uL Low 4.40-5.90 [facility] Comment on above: Performed By: #### B GLU #### [facility] [address] [place] [address] WBC (Bld) [#/Vol] 9.1 10*3/uL Normal 3.6-10.7 [facility] Comment on above: Performed By: #### B GLU #### [facility] [address] [place] [address] Lactic Acidon 03-19-2021 Lactate [Moles/Vol] 2.3 mmol/L Critically high 0.7-2.0 [facility] Comment on above: Performed By: #### L ACT3 ####[place] [address] [place] [address] Lactic Acid, Plasmaon 2020 Lactate [Moles/Vol] 2.3 mmol/L Critically high 0.7 - 2.0 mmol/L [facility] No Panel Informationon 03-19 Interpretation and review of laboratory results Abnormal [facility] Test Performed by [facility], [facility] [address] [place] [address] [facility] RBC MORPHOLOGYon 03-19-2021 Poikilocytes Slight [facility] RBC (Bld) [#/Vol] ABNORMAL [facility] Tear Drop Cells Slight [facility] RBC Morphologyon 03-19-2021 Ovalocytes Slight Normal [facility] Comment on above: Performed By: #### B GLU #### [facility] [address] [place] [address] Poikilocytosis Slight [facility] Comment on above: Performed By: #### B GLU #### [facility] [address] [place] [address] Polychromasia Slight Normal [facility] Comment on above: Performed By: #### B GLU #### [place] [address] [place] [address] RBC morphology finding Nom (Bld) ABNORMAL Normal [facility] Comment on above: Performed By: #### B GLU #### [place] [address] [place] [address] Tear Drop Forms Slight Normal [facility] Comment on above: Performed By: #### B GLU #### [facility] [address] [place] [address] Respiratory Panel, Molecular , with COVID-19 (Restricted: peds pts or suitable admitted adults)on 03-19-2021 Interpretation and review of laboratory results Abnormal [facility] Respiratory Panel Molecular, with COVID POSITIVE: Respiratory Syncytial Virus DETECTED. _ Expected Result: Not Detected The [employer] Upper Respiratory Pathogens PCR Panel can detect the following targets: SARS-CoV-2, Adenovirus, Coronavirus 229E, Coronavirus HKU1, Coronavirus NL63, Coronavirus OC43, Human Metapneumovirus, Human Rhinovirus/Enteroviru s, Influenza A, Influenza B, Parainfluenza Virus 1, Parainfluenza Virus 2, Parainfluenza Virus 3, Parainfluenza Virus 4, Respiratory Syncytial Virus, Bordetella pertussis, Bordetella parapertussis, Chlamydia pneumoniae, Mycoplasma pneumoniae. Method: Real-time PCR. Abnormal [facility] Test Performed by [facility], [address] [place] [address] [facility] SARS-CoV-2, Flu A/B and RSVo n 03-19-2021 SARS-CoV-2 (COVID-19) RNA SHIRLEY+probe Ql (Unsp spec) SARS-CoV-2 --> Status: F Not Detected. Flu A PCR --> Status: F Not Detected. Flu B PCR --> Status: F Not Detected. RSV PCR --> Status: F DETECTED Expected Result: Not Detected _ Method: Real-time, RT-PCR This assay was developed by [employer] and distributed under an Emergency Use Authorization (EUA) granted by the FDA for the qualitative detection of nucleic acids from SARS-CoV-2, Influenza A, Influenza B, and Respiratory Syncytial Virus. Provider and patient fact sheets can be found at https://www.fda.gov/m edia/097786/download and https://www.fda.gov/m edia/418524/download. Expected Result: Not Detected _ Method: Real-time, RT-PCR This assay was developed by [employer] and distributed under an Emergency Use Authorization (EUA) granted by the FDA for the qualitative detection of nucleic acids from SARS-CoV-2, Influenza A, Influenza B, and Respiratory Syncytial Virus. Provider and patient fact sheets can be found at https://www.fda.gov/m edia/826810/download and https://www.fda.gov/m edia/424988/download. Abnormal [facility] Comment on above: Performed By: #### C VFLR #### [facility] [address] [place] [address] , [address] Troponinon 03-19-2021 Troponin I.cardiac [Mass/Vol] 0.017 ng/mL 0.000 - 0.034 ng/mL [facility] Comment on above: . Test Performed by [facility], [address] [place], [place] [address] [facility] Troponin Ion 03-19-2021 Troponin I.cardiac [Mass/Vol] 0.017 ng/mL Normal 0.000-0.034 [facility] Comment on above: Result Comment: . Performed By: #### B MP3, TROPN ####[facility] [place] [address] XR CHEST PORTABLEon 03-19-20 Patient Name: KATHYA HOOPER Diagnostic Radiology ACCESSION EXAM DATE/TIME PROCEDURE ORDERING PROVIDER [id number] 03/19/2021 17:10 EST CR Chest Portable [id number] -BRADY DESAI CPT code 55043 Reason For Exam (CR Chest Portable) hypoxia [...] Date and Time: 03/19/2021 5:22 [facility] Keshawn Simpson MD - 03/19/2021 Patient Name: KATHYA HOOPER Diagnostic Radiology ACCESSION EXAM DATE/TIME PROCEDURE ORDERING PROVIDER [id number] 03/19/2021 17:10 EST CR Chest Portable [id number] -BRADY DESAI CPT code 71044 Reason For Exam (CR Chest Portable) hypoxia [...] [facility] Work Phone: Radiology Study observation (narrative) [facility] Work Phone: XR CHEST PORTABLEOrdered By: Keshawn Simpson on 03-19-2021 [facility] Work Phone: Basic Metabolic Panelon 03-01 Calcium [Mass/Vol] 8.4 mg/dL Normal 8.4-10.4 [facility] Comment on above: Performed By: #### H MAYKEL BMP3 #### [facility] [address] [place] [address] Glucose [Mass/Vol] 110 mg/dL High 70-100 [facility] Comment on above: Performed By: #### H MAYKEL BMP3 #### [facility] [address] [place] [address] Anion gap [Moles/Vol] 7 mmol/L Normal 3-13 [facility] Comment on above: Performed By: #### H MAYKEL BMP3 #### [facility] [address] [place] [address] CO2 [Moles/Vol] 26 mmol/L Normal 22-30 [facility] Comment on above: Performed By: #### H MAYKEL BMP3 #### [facility] [address] [place] [address] Creatinine [Mass/Vol] 0.54 mg/dL Normal 0.52-1.25 [facility] Comment on above: Performed By: #### H MAYKEL BMP3 #### [facility] [address] [place] [address] eGFR OTHER > 90.0 Normal >60 [facility] Comment on above: Result Comment: KDIG [...] Performed By: #### H MAYKEL BMP3 #### [facility] [address] [place] [address] GFR/1.73 sq M.predicted among blacks MDRD (S/P/Bld) [Vol rate/Area] mL/min/{1.73_m2} Normal >60 [facility] Comment on above: Performed By: #### H MAYKEL BMP3 #### [facility] [address] [place] [address] Urea nitrogen [Mass/Vol] 18 mg/dL High 7-17 [facility] Comment on above: Performed By: #### H MAYKEL BMP3 #### [facility] [address] [place] [address] Potassium [Moles/Vol] 3.9 mmol/L Normal 3.5-5.1 [facility] Comment on above: Performed By: #### H EMDF, BMP3 #### [facility] [address] [place] [address] Chloride [Moles/Vol] 104 mmol/L Normal 98-107 [facility] Comment on above: Performed By: #### H EMDF, BMP3 #### [facility] [address] [place] [address] Sodium [Moles/Vol] 137 mmol/L Normal 135-145 [facility] Comment on above: Performed By: #### H EMDF, BMP3 #### [facility] [address] [place] [address] Anion gap [Moles/Vol] 7 mmol/L 3 - 13 mmol/L [facility] Calcium [Mass/Vol] 8.4 mg/dL 8.4 - 10. 4 mg/dL [facility] Chloride [Moles/Vol] 104 mmol/L 98 - 10 7 mmol/L [facility] CO2 [Moles/Vol] 26 mmol/L 22 - 30 mmol/L [facility] Creatinine [Mass/Vol] 0.54 mg/dL 0.52 - 1.25 mg/dL [facility] EGFR IF NonAfrican Haitian >90.0 >60 mL/min [facility] Comment on above: KDIGO guidelines pro vide [...] 110 mg/dL High 70 - 100 mg/dL [facility] Interpretation and review of laboratory results Abnormal [facility] Potassium [Moles/Vol] 3.9 mmol/L 3.5 - 5.1 mmol/L [facility] Sodium [Moles/Vol] 137 mmol/L 135 - 145 mmol/L [facility] Urea nitrogen (BldV) [Mass/Vol] 18 mg/dL High 7 - 17 mg/dL [facility] Brain Natriuretic Peptideon 03-18-2021 Interpretation and review of laboratory results Abnormal [facility] Natriuretic peptide B (Bld) [Mass/Vol] 710 pg/mL High 0 - 125 pg/mL [facility] Test Performed by [facility], [address] [place] [address] Str. [place], [place] [id number] [place] [address] LAB [facility] CBC Auto Differentialon 03-01 Absolute Baso # [...] (Stl) 13.6 g/dL 13.0 - 18.0 g/dL [facility] Interpretation and review of laboratory results Abnormal [...] - 10.7 10*3/uL [facility] Test Performed by [facility], [facility] [address] LAB [facility] COVID-19, Flu A/B, and RSV C omboon 03-18-2021 Influenza A by PCR Not detected [facility] A Influenza B by PCR Not detected [facility] A Interpretation and review of laboratory results Abnormal [facility] RSV PCR DETECTED Expected Result: Not Detected _ Method: Real-time, RT-PCR This assay was developed by [employer] and distributed under an Emergency Use Authorization (EUA) granted by the FDA for the qualitative detection of nucleic acids from SARS-CoV-2, Influenza A, Influenza B, and Respiratory Syncytial Virus. Provider and patient fact sheets can be found at https://www.fda.gov/m edia/299028/download and https://www.fda.gov/m edia/526621/download. Abnormal [facility] SARS-CoV-2 (COVID-19) RNA SHIRLEY+probe Ql (Unsp spec) Not detected [facility] Test Performed by [facility], [facility] [address] LAB [facility] CR Chest Portableon 03-18-20 21 CR Chest Portable Patient Name: KATHYA HOOPER Diagnostic Radiology ACCESSION EXAM DATE/TIME PROCEDURE ORDERING PROVIDER [id number] 03/18/2021 15:30 EST CR Chest Portable [id number] -BOO CASTRO CPT code 80485 Reason For Exam (CR Chest Portable) sob, [...] Transcribed Date and Time: 03/18/2021 3:35 Normal [facility] CTA Chest W WO (PE study)on 03-18-2021 Patient Name: KATHYA HOOPER Computed Tomography ACCESSION EXAM DATE/TIME PROCEDURE ORDERING PROVIDER [id number] 03/18/2021 16:27 EST CTA Chest w/ + w/o [id number] -MATTHEWAlyson BOO CPT code 89128 Q9967 Reason For Exam (CTA Chest w/ + w/o Contrast) pulmonary embolus Report CTA chest with and without contrast History: chest pain Protocol: 1 mm images after IV contrast, 3D rendering performed by ak on a separate workstation No evidence of aortic dissection or pulmonary embolism. Patchy scattered bilateral lung infiltrates. Minimal left pleural effusion. No lymphadenopathy. IMPRESSION: Patchy scattered bilateral lung infiltrates. Minimal left pleural effusion. Report Dictated on --- Final --- Dictating Physician: MD MICHAELS MALAY Signed Date and Time: 03/18/2021 4:35 pm Signed by: MD MICHAELS MALAY Transcribed Date and Time: 03/18/2021 4:36 [facility] Malcolm Michaels MD - 03/18/2021 Patient Name: KATHYA HOOPER Computed Tomography ACCESSION EXAM DATE/TIME PROCEDURE ORDERING PROVIDER [id number] 03/18/2021 16:27 EST CTA Chest w/ + w/o [id number] -DESHA, Contrast BOO CPT code 10789 Q9967 Reason For Exam (CTA Chest w/ [...] Tomography ACCESSION EXAM DATE/TIME PROCEDURE ORDERING PROVIDER [id number] 03/18/2021 16:27 EST CTA Chest w/ + w/o [id number] -DESHA, Contrast BOO CPT code 07527 Q9967 Reason For Exam (CTA Chest w/ + w/o Contrast) pulmonary embolus Report CTA chest with and without contrast History: chest pain Protocol: 1 mm images after IV contrast, 3D rendering performed by ak on a separate workstation No evidence of aortic dissection or pulmonary embolism. Patchy scattered bilateral lung infiltrates. Minimal left pleural effusion. No lymphadenopathy. IMPRESSION: Patchy scattered bilateral lung infiltrates. Minimal left pleural effusion. Report Dictated on Final Dictating Physician: MD MICHAELS MALAY Signed Date and Time: 03/18/2021 4:35 pm Signed by: MD MICHAELS MALAY Transcribed Date and Time: 03/18/2021 4:36 Normal [facility] CTA HEAD NECK W WO CONTRASTo n 03-18-2021 [facility]: [id number] Computed Tomography ACCESSION EXAM DATE/TIME PROCEDURE ORDERING PROVIDER [id number] 03/18/2021 16:26 EST CTA Head/Neck w/ + w/o [id number] alyson ARCHIBALD CPT code 92735 08723 Q9967 Reason For Exam (CTA Head/Neck w/ + w/o contrast) AMS, dysphasia and ?aphasia possibly since yesterday- very poor historian from residential w/ unclear prior deficits - here w/ [...] [facility]AMA Transcribed Date and Time: 03/18/2021 4:52 [facility] Greyson Rai MD - 03/18/2021 Patient Name: [facility] [id number] Computed Tomography ACCESSION EXAM DATE/TIME PROCEDURE ORDERING PROVIDER [id number] 03/18/2021 16:26 EST CTA Head/Neck w/ + w/o [id number] -alyson CASTRO CPT code 73776 75717 Q9967 Reason For Exam (CTA Head/Neck w/ + w/o contrast) AMS, dysphasia and ?aphasia possibly since yesterday- very poor historian from residential w/ unclear prior deficits - here w/ [...] Tomography ACCESSION EXAM DATE/TIME PROCEDURE ORDERING PROVIDER [id number] 03/18/2021 16:26 EST CTA Head/Neck w/ + w/o [id number] -CASTROalyson BOO CPT code 27141 31158 Q9967 Reason For Exam (CTA Head/Neck w/ + w/o contrast) AMS, dysphasia and ?aphasia possibly since yesterday- very poor historian from residential w/ unclear prior deficits - here w/ [...] Transcribed Date and Time: 03/18/2021 4:52 Normal [facility] ED Provider Noteon ED Provider Note [...] patient come from an ECF, SNF, Rehab, Chcf or other Congregate setting: no (If yes to above patient needs a Covid-19 test) HPI Kathya Hooper is a 66 y.o. 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 Normal [facility] Hemogram w/ Autodiffon 03-18 Abs Baso Cnt 0.0 10*3/uL Normal 0.0-0.2 [facility] Comment on above: Performed By: #### H MAYKEL BMP3 #### [facility] [address] [place] [address] Abs Neutrophile Cnt 7.3 10*3/uL High 1.8-7.0 [facility] Comment on above: Performed By: #### H MAYKEL BMP3 #### [facility] [address] [place] [address] Basophils/100 WBC (Bld) 0.5 % Normal 0.0-2.0 [facility] Comment on above: Performed By: #### H MAYKEL BMP3 #### [facility] [address] [place] [address] Eosinophils (Bld) [#/Vol] 0.0 10*3/uL Normal 0.0-0.5 [facility] Comment on above: Performed By: #### H MAYKEL BMP3 #### [facility] [address] [place] [address] Eosinophils/100 WBC (Bld) 0.1 % Low 1.0-6.0 [facility] Comment on above: Performed By: #### H MAYKEL BMP3 #### [facility] [address] [place] [address] Erythrocyte distribution width (RBC) [Ratio] 12.9 % Normal 11.5-14.5 [facility] Comment on above: Performed By: #### H MAYKEL BMP3 #### [facility] [address] [place] [address] Granulocytes/100 WBC (Bld) 82.8 % High 40.0-80.0 [facility] Comment on above: Performed By: #### H MAYKEL BMP3 #### [facility] [address] [place] [address] Hematocrit (Bld) [Volume fraction] 38.3 % Low 40.0-52.0 [facility] Comment on above: Performed By: #### H MAYKEL BMP3 #### [facility] [address] [place] [address] Hemoglobin (Bld) [Mass/Vol] 13.6 g/dL Normal 13.0-18.0 [facility] Comment on above: Performed By: #### H EMDF BMP3 #### [facility] [address] [place] [address] Lymphocytes (Bld) [#/Vol] 0.7 10*3/uL Low 1.0-4.3 [facility] Comment on above: Performed By: #### H MAYKEL BMP3 #### [facility] [address] [place] [address] Lymphocytes/100 WBC (Bld) 7.6 % Low 20.0-40.0 [facility] Comment on above: Performed By: #### H EMDMaurice BMP3 #### [facility] [address] [place] [address] MCH (RBC) [Entitic mass] 32.0 pg Normal 26.0-34.0 [facility] Comment on above: Performed By: #### H MAYKEL BMP3 #### [facility] [address] [place] [address] MCHC 35.4 % Normal 32.0-36.0 [facility] Comment on above: Performed By: #### H EMDF BMP3 #### [facility] [address] [place] [address] MCV (RBC) [Entitic vol] 90.2 fL Normal 80.0-98.0 [facility] Comment on above: Performed By: #### H EMDF BMP3 #### [facility] [address] [place] [address] Monocytes (Bld) [#/Vol] 0.8 10*3/uL Normal 0.0-0.8 [facility] Comment on above: Performed By: #### H EMDF, BMP3 #### [facility] [address] [place] [address] Monocytes/100 WBC (Bld) 9.0 % Normal 2.0-10.0 [facility] Comment on above: Performed By: #### H MAYKEL BMP3 #### [facility] [address] [place] [address] Platelet mean volume (Bld) [Entitic vol] 9.8 fL Normal 7.4-10.4 [facility] Comment on above: Performed By: #### H MAYKEL BMP3 #### [facility] [address] [place] [address] Platelets (Bld) [#/Vol] 129 10*3/uL Low 140-440 [facility] Comment on above: Performed By: #### H MAYKEL BMP3 #### [facility] [address] [place] [address] RBC (Bld) [#/Vol] 4.24 10*6/uL Low 4.40-5.90 [facility] Comment on above: Performed By: #### H MAYKEL BMP3 #### [facility] [address] [place] [address] WBC (Bld) [#/Vol] 8.8 10*3/uL Normal 3.6-10.7 [facility] Comment on above: Performed By: #### H MAYKEL BMP3 #### [facility] [address] [place] [address] MAGNESIUMon 03-18-2021 Magnesium [Mass/Vol] 2.0 mg/dL 1.6 - 2 .3 mg/dL [facility] Magnesiumon 03-18-2021 Magnesium [Mass/Vol] 2.0 mg/dL Normal 1.6-2.3 [facility] Comment on above: Performed By: #### H MAYKEL BMP3 #### [facility] [address] [place] [address] NT pro BNPon 03-18-2021 Natriuretic peptide B (Bld) [Mass/Vol] 710 pg/mL High 0-125 [facility] Comment on above: Performed By: #### H MAYKEL BMP3 #### [facility] [address] [place] [address] No Panel Informationon 03-18 Test Performed by [facility], [address], [place], [place] [address] [facility] PROTIME/INR & PTTon 03-18-20 21 aPTT Coag (Bld) [Time] 30.7 s High 20.0 - 30.5 s [facility] Comment on above: NOTE: The therapeuti c time for Heparin anticoagulation, based on Xa activity inhibition, is an APTT of 46-80 seconds. INR Coag (Bld) [Relative time] 1.1 {INR} [facility] Comment on above: Recommended Anticoag ulant Therapy: [...] Interpretation and review of laboratory results Abnormal [facility] PT Coag (PPP) [Time] 11.4 s 9.0 - 12.0 s [facility] Comment on above: . Test Performed by [facility], [address], [place], [place] [id number] [place] [address] LAB [facility] Protime AND APTTon aPTT Coag (Bld) [Time] 30.7 s High 20.0-30.5 [facility] Comment on above: Result Comment: NOTE : The therapeutic time for Heparin anticoagulation, based on Xa activity inhibition, is an APTT of 46-80 seconds. Performed By: #### H EMD, BMP3 #### [facility] [address] [place] [address] INR 1.1 Normal 0.9-1.1 [facility] Comment on above: Result Comment: Yefri [...] Performed By: #### H MITALI BRAR #### [facility] [address] [place] [address] PT Coag (PPP) [Time] 11.4 s Normal 9.0-12.0 [facility] Comment on above: Result Comment: . Performed By: #### H KORIN BRAR3 #### [facility] [address] [place] [address] SARS-CoV-2, Flu A/B and RSVo n 03-18-2021 SARS-CoV-2 (COVID-19) RNA SHIRLEY+probe Ql (Unsp spec) SARS-CoV-2 --> Status: F Not Detected. Flu A PCR --> Status: F Not Detected. Flu B PCR --> Status: F Not Detected. RSV PCR --> Status: F DETECTED Expected Result: Not Detected _ Method: Real-time, RT-PCR This assay was developed by [employer] and distributed under an Emergency Use Authorization (EUA) granted by the FDA for the qualitative detection of nucleic acids from SARS-CoV-2, Influenza A, Influenza B, and Respiratory Syncytial Virus. Provider and patient fact sheets can be found at https://www.fda.gov/m edia/593425/download and https://www.fda.gov/m edia/336432/download. Expected Result: Not Detected _ Method: Real-time, RT-PCR This assay was developed by [employer] and distributed under an Emergency Use Authorization (EUA) granted by the FDA for the qualitative detection of nucleic acids from SARS-CoV-2, Influenza A, Influenza B, and Respiratory Syncytial Virus. Provider and patient fact sheets can be found at https://www.fda.gov/m edia/049530/download and https://www.fda.gov/m edia/809909/download. Abnormal [facility] Comment on above: Performed By: #### C VFLR #### [facility] [address] [place] [address] , [id number] TS GELon 03-18-2021 TS GEL ABO Group: O Rh, Gel: POS Antibody Screen Gel: NEG Normal [facility] Comment on above: Performed By: #### T SGL #### [facility] TYPE AND SCREENon 03-18-2021 ABO Grouping O [facility] Rh Type Positive [facility] Test Performed by [facility], [address], [place], [place] [id number] [place] [address] LAB [facility] XR CHEST PORTABLEon 03-18-20 Patient Name: KATHYA HOOPER Diagnostic Radiology ACCESSION EXAM DATE/TIME PROCEDURE ORDERING PROVIDER [id number] 03/18/2021 15:30 EST CR Chest Portable [id number] -[facility] CPT code 58037 Reason For Exam (CR Chest Portable) sob, [...] KRIKOR Transcribed Date and Time: 03/18/2021 3:35 [facility] Alejandra Munoz MD - 03/18/2021 Patient Name: KATHYA HOOPER Diagnostic Radiology ACCESSION EXAM DATE/TIME PROCEDURE ORDERING PROVIDER [id number] 03/18/2021 15:30 EST CR Chest Portable [id number] [place] [address] CPT code 29994 Reason For Exam (CR Chest Portable) sob, [...] KRIKOR Transcribed Date and Time: 03/18/2021 3:35 [employer] Work Phone: Radiology Study observation (narrative) [facility] Work Phone: XR CHEST PORTABLEOrdered By: Alejandra Munoz on 03-18-2021 [employer] Work Phone: ED Provider Noteon ED Provider Note - Attestation signed by Edwin Montejo MD at 10/31/2020 7:09 AM Emergency Medicine Attending Note This patient was seen and treated independently by the professional employer consultant. I was present and available in the [...] Diagnosis Date ? TREVER (acute kidney injury) ([facility]) ? Alcohol abuse 07/08/2018 ? Anxiety ? Depression ? Fall 06/2018 ? Schizophrenia ([facility]) SURGICALHISTORY Past Surgical History: Procedure Laterality Date [...] Strain: ? (more content not included)... Normal [facility] [place] GI TUBE EVALUATION W CONT RASTOrdered By: Helen Toledo on 10-30-2020 Patient Name: KATHYA HOOPER Fluoroscopy ACCESSION EXAM DATE/TIME PROCEDURE ORDERING PROVIDER [id number] 10/30/2020 15:07 EDT RF Intro Long GI Tube w/ KRISTA TOLEDO, HELEN [place] Fluoro CPT code 18495 Reason For Exam (RF Intro Long GI [...] Phone: Jaquan, [facility] Incoming Radiology Results From [facility] - 10/30/2020 4:07 PM EDT Patient Name: KATHYA HOOPER Fluoroscopy ACCESSION EXAM DATE/TIME PROCEDURE ORDERING PROVIDER [id number] 10/30/2020 15:07 EDT RF Intro Long GI Tube w/ KRISTA TOLEDO AMY L Fluoro CPT code 21560 Reason For Exam (RF Intro Long GI [...] J Transcribed Date and Time: 10/30/2020 4:06 [facility] Work Phone: [facility] Work Phone: RF Intro Long GI Tube w/ Flu oroon 10-30-2020 RF Intro Long GI Tube w/ Fluoro Patient Name: KATHYA HOOPER Fluoroscopy ACCESSION EXAM DATE/TIME PROCEDURE ORDERING PROVIDER [id number] 10/30/2020 15:07 EDT RF Intro Long GI Tube w/ KRISTA TOLEDO AMY L Fluoro CPT code 18842 Reason For Exam (RF Intro Long GI [...] Pineda Transcribed Date and Time: 10/30/2020 4:06 [facility] ED Provider Noteon ED Provider Note [...] Gatherings with Friends and Family: ? Attends Restorationism Services: ? Active Member of Clubs or [...] Soft, non-distended (more content not included)... Normal [facility] [place] GI TUBE EVALUATION W CONT RASTOrdered By: Elizabeth Moura on 09-22-2020 Patient Name: KATHYA HOOPER Fluoroscopy ACCESSION EXAM DATE/TIME PROCEDURE ORDERING PROVIDER [id number] 09/22/2020 04:09 EDT RF Intro Long GI Tube w/ 5816 -ELIZABETH MOURA CPT code 75463 Reason For Exam (RF Intro Long GI [...] JEFFREY Transcribed Date and Time: 09/22/2020 5:11 [facility] Work Phone: [facility] From [facility] - 09/22/2020 5:11 AM EDT Patient Name: KATHYA HOOPER Fluoroscopy ACCESSION EXAM DATE/TIME PROCEDURE ORDERING PROVIDER [id number] 09/22/2020 04:09 EDT RF Intro Long GI Tube w/ 58Hayley JoesphZENY ELIZABETH Fluoro CPT code 01926 Reason For Exam (RF Intro Long GI [...] JEFFREY Transcribed Date and Time: 09/22/2020 5:11 [facility] Work Phone: [facility] Work Phone: RF Intro Long GI Tube w/ Flu oroon 09-22-2020 RF Intro Long GI Tube w/ Fluoro Patient Name: KATHYA HOOPER Fluoroscopy ACCESSION EXAM DATE/TIME PROCEDURE ORDERING PROVIDER [id number] 09/22/2020 04:09 EDT RF Intro Long GI Tube w/ ZakHayley JoesphZENY ELIZABETH Fluoro CPT code 46142 Reason For Exam (RF Intro Long GI [...] JEFFREY Transcribed Date and Time: 09/22/2020 5:11 [facility] ED Provider Noteon ED [facility] Pt Name: Kathya [...] otherwise acutely negative except as in the CAHTO. PAST MEDICAL HISTORY Past Medical History: Diagnosis [...] (AQUAPHOR) ointment Apply topically as needed. Balsam [place] Oil (VENELEX) OINT ointment Apply topically every [...] file Gets together: Not on file Attends restorationism service: Not on file Active member of [...] for level (more content not included)... Normal [facility] [place] GI TUBE EVALUATION W BRANDON Warner 06-26-2020 Patient Name: KATHYA HOOPER Fluoroscopy ACCESSION EXAM DATE/TIME PROCEDURE ORDERING PROVIDER [id number] 06/26/2020 20:20 EST RF Intro Long GI Tube w/ [id number] ABELARDO JANE CPT code 12912 Reason For Exam (RF Intro Long GI [...] Phone: Jaquan, [facility] Incoming Radiology Results From [facility] - 06/26/2020 9:16 PM EST Patient Name: KATHYA HOOPER Fluoroscopy ACCESSION EXAM DATE/TIME PROCEDURE ORDERING PROVIDER [id number] 06/26/2020 20:20 EST RF Intro Long GI Tube w/ [id number] -ABELARDO RIOS CPT code 86650 Reason For Exam (RF Intro Long GI [...] of procedure: Tolerated well, no immediate complications [facility] Work Phone: RF Intro Long GI Tube w/ Flu oroon 06-26-2020 RF Intro Long GI Tube w/ Fluoro Patient Name: KATHYA HOOPER Fluoroscopy ACCESSION EXAM DATE/TIME PROCEDURE ORDERING PROVIDER [id number] 06/26/2020 20:20 EST RF Intro Long GI Tube w/ [id number] -ABELARDO RIOS CPT code 81909 Reason For Exam (RF Intro Long GI [...] Transcribed Date and Time: 06/26/2020 9:16 Normal [facility] Clinical Summary: HMSPatient IDon 05-22-2019 [facility] Work Phone: Office Visit: New - 1st visi t with practice, Rm: 2on 05-22-2019 NEGATED: Highlighted rowCT scan history of the right lower extremity on 05/16/2019 at [facility] Work Phone: NEGATED: Highlighted rowTobacco smoking status NHIS current someday smoker [facility] Work Phone: NEGATED: Highlighted rowxray history of the pelvis with hip on 05/11/2019 at [facility] , of the pelvis on 05/13/2019 at [facility] Work Phone: CT LOWER EXTREMITY RIGHT WO CONTRASTOrdered By: Elizabeth Moura on 05-16-2019 Patient Name: KATHYA HOOPER ---CT--- Exam Date/Time 05/16/2019 21:10:[address] Low Ext w/o Contrast Right Ordering Physician ELIZABETH BARKER Accession Number [id number] CPT4 Codes 13954 () Reason For Exam right hip pain, [...] Phone: Jaquan, [facility] Incoming Radiology Results From [facility] - 05/16/2019 9:24 PM EST Patient Name: KATHYA HOOPER ---CT--- Exam Date/Time 05/16/2019 21:10:[address] Low Ext w/o Contrast Right Ordering Physician Zak16 JoesphELIZABETH MOURA Accession Number [id number] CPT4 Codes 69750 () Reason For Exam right hip pain, [...] RISA Transcribed Date and Time: 05/16/2019 9:24 [facility] Work Phone: Differential,Body Fluidson 0 09-27-2018 Other Cells 46 % Normal [facility] Comment on above: Result Comment: Bloo dy specimen with reactive mesothelial cells and chronic inflammation with occasional hemophagocytosis. 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 [address] [place] [address] #### VD25H #### [facility] [address] [place] [address] CULTURE AND STAIN - FLUIDon 09-25-2018 CULTURE AND STAIN - FLUID CULTURE & STAIN - FLUID --> Status: F No growth at 5 days. STAIN GRAM --> Status: F Moderate polymorphonuclear cells/lpf. Moderate mononuclear cells/lpf No organisms seen. Cytocentrifugation performed. Moderate mononuclear cells/lpf No organisms seen. Cytocentrifugation performed. Normal [facility] Comment on above: Performed By: #### H EMDF, PT, BMP3M, PHOS3, MG3, CK3 #### [facility] [address] [place] [address] #### VD25H #### [facility] [address] [place] [address] Cell Count,Body Fluidon 05-2 Nucleated Cells 2391 {cells}/uL Normal [facility] Comment on above: Performed By: #### H EMDF, PT, BMP3M, PHOS3, MG3, CK3 #### [place] [address] [place] #### VD25H #### [facility] [address] [place] [address] RBC [place] [address] {RBC}/uL Normal [facility] Comment on above: Performed By: #### H EMDF, PT, BMP3M, PHOS3, MG3, CK3 #### [place] [address] [place] #### VD25H #### [place] [address] [place] [address] Fluid Type Thoracentesis Normal [facility] Comment on above: Performed By: #### H EMDF, PT, BMP3M, PHOS3, MG3, CK3 #### [address] #### VD25H #### [place] [address] [place] [address] Differential,Body Fluidson 0 09-25-2018 Lymphocytes/100 WBC (Bld) 28 % Normal [facility] Comment on above: Performed By: #### H EMDF, PT, BMP3M, PHOS3, MG3, CK3 #### [place] [address] [place] #### VD25H #### [place] [address] [place] [address] Monocytes/100 WBC (Bld) 1 % Normal [facility] Comment on above: Performed By: #### H EMDF, PT, BMP3M, PHOS3, MG3, CK3 #### [place] [address] [place], [place] #### VD25H #### [place] [address] [place] [address] Neutrophils/100 WBC (Bld) 25 % Normal [facility] Comment on above: Performed By: #### H EMDF, PT, BMP3M, PHOS3, MG3, CK3 #### [facility] [address] [place] #### VD25H #### [facility] [address] [place] [address] Cells Counted for Diff 100 Normal [facility] Comment on above: Performed By: #### H EMDF, PT, BMP3M, PHOS3, MG3, CK3 #### [place] [address] [place] #### VD25H #### [facility] [address] [place] [address] LDH, Body Fluidon 09-25-2018 LDH, Body Fluid 174 U/L Normal No Range [facility] Comment on above: Performed By: #### H EMDF, PT, BMP3M, PHOS3, MG3, CK3 #### [place] [address] [place] #### VD25H #### [facility] [address] [place] [address] Protein, Total Body Fluidon 09-25-2018 Protein,Total-Body Fld 3.4 g/dL Normal No Range [facility] Comment on above: Performed By: #### H EMDF, PT, BMP3M, PHOS3, MG3, CK3 #### [place] [address] [place] #### VD25H #### [facility] [address] [place] [address] US Thora-Aspir Pleura w/ Evelin geon 09-25-2018 US Thora-Aspir Pleura w/ Image Patient Name: KATHYA HOOPER Ultrasound Exam Date/Time 09/25/2018 13:23:41 EDT Exam US Thora-Aspir Pleura w/ Image Ordering Physician SALO DAVIS Accession Number [id number] CPT4 Codes 21039 () Reason For Exam pleural effusion Report [...] JENNIFER Transcribed Date and Time: 09/25/2018 3:07 [facility] CULTURE MYCOBACTERIAon 09-03 CULTURE MYCOBACTERIA CULTURE MYCOBACTERI A --> Status: F No acid-fast bacilli isolated after 6 weeks incubation. [facility] Comment on above: Performed By: #### H EMDF, PT, BMP3M, PHOS3, MG3, CK3 #### [facility] [address] [place] [address] #### VD25H #### [facility] [address] [facility] [place] [address] CULTURE URINEon 08-23-2018 CULTURE URINE CULTURE URINE --> Status: F No growth (<1,000 CFU/ml). [facility] Comment on above: Order Comment: Speci men Source Comment:Urine, clean catch Performed By: #### H EMDF, PT, BMP3M, PHOS3, MG3, CK3 #### [facility] [employer] [facility] [address] [place] [address] #### VD25H #### [facility] [employer] [facility] [address] [place] [address] CR Chest Portableon 08-23-19 19 CR Chest Portable Patient Name: KATHYA HOOPRE Diagnostic Radiology Exam Date/Time 08/22/2018 07:07:07 EDT Exam CR Chest Portable Ordering Physician HIRAM ONEIL Accession Number [id number] CPT4 Codes 17904 () Reason For Exam dyspnea Report Portable [...] lobe atelectasis, effusion or infiltrate. The lung buaer are otherwise clear. Report Dictated on Final Dictated: 08/22/2018 7:31 am Dictating Physician: MD JOHNSON RISA Signed Date and Time: 08/22/2018 7:32 am Signed by: MD JOHNSON RISA Transcribed Date and Time: 08/22/2018 7:31 Normal [facility] [employer] [facility] Glucose,Bedsideon 08-22-2018 Glucose mass conc 127 mg/dL High 70-100 [facility] Comment on above: Result Comment: Test performed by glucose meter. Results may be 10%-15% lower than serum/plasma values. (CLIA ID [id number]) Performed By: #### H EMDF, PT, BMP3M, PHOS3, MG3, CK3 #### [facility] [employer] [facility] [address] [place] [address] #### VD25H #### [facility] [employer] [facility] [address] [place] [address] Urinalysis,Macroon 9 Appearance Nom (U) clear Normal Clear [facility] Comment on above: Performed By: #### H EMDF, PT, BMP3M, PHOS3, MG3, CK3 #### [facility] [address] [place] #### VD25H #### [facility] [address] [place] [address] Bilirubin,Ur Negative Normal Negative [facility] Comment on above: Performed By: #### H EMDF, PT, BMP3M, PHOS3, MG3, CK3 #### [place] [address] [place], [place] #### VD25H #### [facility] [address] [place] [address] Color Nom (U) dk.yel Normal Lt. Yellow [facility] Comment on above: Performed By: #### H EMDF, PT, BMP3M, PHOS3, MG3, CK3 #### [place] [address] [place] #### VD25H #### [facility] [address] [place] [address] Glucose Ql (U) NORM Normal Negative [facility] Comment on above: Performed By: #### H EMDF, PT, BMP3M, PHOS3, MG3, CK3 #### [address] #### VD25H #### [facility] [address] [place] [address] Ketone,Urine Negative Normal Negative [facility] Comment on above: Performed By: #### H EMDF, PT, BMP3M, PHOS3, MG3, CK3 #### [address] #### VD25H #### [facility] [address] [place] [address] Nitrite Ql (U) Negative Normal Negative [facility] Comment on above: Performed By: #### H EMDF, PT, BMP3M, PHOS3, MG3, CK3 #### [place] [address] [facility], [place] #### VD25H #### [facility] [address] [place] [address] Occult Blood,Ur Negative Normal Negative [facility] Comment on above: Performed By: #### H EMDF, PT, BMP3M, PHOS3, MG3, CK3 #### [place] [address] [facility] #### VD25H #### [facility] [address] [place] [address] pH (U) 8.0 Normal 5.0-8.0 [facility] Comment on above: Performed By: #### H EMDF, PT, BMP3M, PHOS3, MG3, CK3 #### [address] #### VD25H #### [place] [address] [place] [address] Protein mass conc (U) Negative Normal Negative [facility] Comment on above: Performed By: #### H EMDF, PT, BMP3M, PHOS3, MG3, CK3 #### [address] [place] #### VD25H #### [place] [address] [place] [address] Specific [place],Urine 1.015 Normal 1.005-1.030 S [facility] Comment on above: Performed By: #### H EMDF, PT, BMP3M, PHOS3, MG3, CK3 #### [place] [address] [facility] #### VD25H #### [facility] [address] [place] [address] Urobilinogen Qn (U) 1 mg/dL Normal 0-1 [facility] Comment on above: Performed By: #### H EMDF, PT, BMP3M, PHOS3, MG3, CK3 #### [place] [address] [facility] #### VD25H #### [facility] [address] [place] [address] WBC #/vol (Bld) Negative Normal Negative [facility] Comment on above: Performed By: #### H EMDF, PT, BMP3M, PHOS3, MG3, CK3 #### [place] [address] [place] #### VD25H #### [facility] [address] [place] [address] Basic Metabolic Panelon 04-2 Calcium mass conc 7.8 mg/dL Low 8.4-10.4 [facility] Comment on above: Performed By: #### H EMDF, PT, BMP3M, PHOS3, MG3, CK3 #### [place] [address] [place], [place] #### VD25H #### [facility] [address] [place] [address] Glucose mass conc 102 mg/dL High 70-100 [facility] Comment on above: Performed By: #### H EMDF, PT, BMP3M, PHOS3, MG3, CK3 #### [place] [address] [place], [place] #### VD25H #### [facility] [address] [place] [address] Anion gap molar conc 0 Normal [facility] Comment on above: Performed By: #### H EMDF, PT, BMP3M, PHOS3, MG3, CK3 #### [address] #### VD25H #### [facility] [address] [place] [address] CO2 molar conc 37 mmol/L High 22-30 [facility] Comment on above: Performed By: #### H EMDF, PT, BMP3M, PHOS3, MG3, CK3 #### [place] [address] [place], [place] #### VD25H #### [facility] [address] [place] [address] Creatinine mass conc 0.46 mg/dL Low 0.52-1.25 [facility] Comment on above: Performed By: #### H EMDF, PT, BMP3M, PHOS3, MG3, CK3 #### [address] #### VD25H #### [facility] [address] [place] [address] GFR/1.73 sq M predicted among blacks MDRD vol rate/area (S/P/Bld) mL/min/{1.73_m2} Normal >60 [facility] Comment on above: Performed By: #### H EMDF, PT, BMP3M, PHOS3, MG3, CK3 #### [address] #### VD25H #### [facility] [address] [place] [address] GFR/1.73 sq M predicted among non-blacks MDRD vol rate/area (S/P/Bld) mL/min/{1.73_m2} Normal >60 [facility] Comment on above: Result Comment: Sour ce- MDRD equation with creatinine calibration to IDMS(NKDEP) eGFR not recommended for drug dose adjustment Performed By: #### H EMDF, PT, BMP3M, PHOS3, MG3, CK3 #### [address] #### VD25H #### [facility] [address] [place] [address] Urea nitrogen mass conc 7 mg/dL Normal 7-20 S [facility] Comment on above: Performed By: #### H EMDF, PT, BMP3M, PHOS3, MG3, CK3 #### [address] #### VD25H #### [facility] [address] [place] [address] Potassium molar conc 3.7 mmol/L Normal 3.5-5.1 [facility] Comment on above: Performed By: #### H EMDF, PT, BMP3M, PHOS3, MG3, CK3 #### [facility] [address] [place] [address] #### VD25H #### [facility] [address] [place] [address] Chloride molar conc 101 mmol/L Normal 98-107 [facility] Comment on above: Performed By: #### H EMDF, PT, BMP3M, PHOS3, MG3, CK3 #### [facility] [address] [place] [address] #### VD25H #### [facility] [address] [place] [address] Sodium molar conc 138 mmol/L Normal 135-145 [facility] Comment on above: Performed By: #### H EMDF, PT, BMP3M, PHOS3, MG3, CK3 #### [facility] [address] [place] [address] #### VD25H #### [facility] [address] [place] [address] CR Chest Portableon 08-22-19 CR Chest Portable Patient Name: KATHYA HOOPER Diagnostic Radiology Exam Date/Time 08/21/2018 09:46:47 EDT Exam CR Chest Portable Ordering Physician MALLORY STAPLES Accession Number [id number] CPT4 Codes 02529 () Reason For Exam edema Report PORTABLE [...] Transcribed Date and Time: 08/21/2018 11:14 Normal [facility] CULTURE ANAEROBEon 9 CULTURE ANAEROBE CULTURE ANAEROBE --> Status: F No growth of anaerobes at 5 days. Normal [facility] Comment on above: Order Comment: or co llected Performed By: #### H EMDF, PT, BMP3M, PHOS3, MG3, CK3 #### [facility] [address] [place], [place] #### VD25H #### [employer] [facility] [address] [place] [address] Glucose,Bedsideon 08-21-2018 Glucose mass conc 124 mg/dL High 70-100 [facility] Comment on above: Result Comment: Test performed by glucose meter. Results may be 10%-15% lower than serum/plasma values. (CLIA ID [id number]) Performed By: #### H EMDF, PT, BMP3M, PHOS3, MG3, CK3 #### [facility] [address] [place] [address] #### VD25H #### [facility] [address] [place] [address] Glucose mass conc 135 mg/dL High 70-100 [facility] Comment on above: Result Comment: Test performed by glucose meter. Results may be 10%-15% lower than serum/plasma values. (CLIA ID [id number]) Performed By: #### H EMDF, PT, BMP3M, PHOS3, MG3, CK3 #### [facility] [address] [place] [address] #### VD25H #### [facility] [address] [place] [address] Glucose mass conc 131 mg/dL High 70-100 [facility] Comment on above: Result Comment: Test performed by glucose meter. Results may be 10%-15% lower than serum/plasma values. (CLIA ID [id number]) Performed By: #### H EMDF, PT, BMP3M, PHOS3, MG3, CK3 #### [place] [address] [place] [address] #### VD25H #### [facility] [address] [place] [address] Glucose mass conc 112 mg/dL High 70-100 [facility] Comment on above: Result Comment: Test performed by glucose meter. Results may be 10%-15% lower than serum/plasma values. (CLIA ID [id number]) Performed By: #### H EMDF, PT, BMP3M, PHOS3, MG3, CK3 #### [address] #### VD25H #### [facility] [address] [place] [address] Basic Metabolic Panelon 04-2 Anion gap molar conc 4 Normal [facility] Comment on above: Performed By: #### H EMDF, PT, BMP3M, PHOS3, MG3, CK3 #### [address] #### VD25H #### [facility] [address] [place] [address] Calcium mass conc 7.6 mg/dL Low 8.4-10.4 [facility] Comment on above: Performed By: #### H EMDF, PT, BMP3M, PHOS3, MG3, CK3 #### [address] #### VD25H #### [facility] [address] [place] [address] CO2 molar conc 36 mmol/L High 22-30 [facility] Comment on above: Performed By: #### H EMDF, PT, BMP3M, PHOS3, MG3, CK3 #### [place] [address] [place] #### VD25H #### [facility] [address] [place] [address] Glucose mass conc 121 mg/dL High 70-100 [facility] Comment on above: Performed By: #### H EMDF, PT, BMP3M, PHOS3, MG3, CK3 #### [place] [address] [address] [facility] #### VD25H #### [facility] [address] [place] [id number] Urea nitrogen mass conc 9 mg/dL Normal 7-20 [facility] Comment on above: Performed By: #### H EMDF, PT, BMP3M, PHOS3, MG3, CK3 #### [address] #### VD25H #### [facility] [address] [place] [address] Creatinine mass conc 0.51 mg/dL Low 0.52-1.25 [facility] Comment on above: Performed By: #### H EMDF, PT, BMP3M, PHOS3, MG3, CK3 #### [place] [address] [address] [place], [place] #### VD25H #### [facility] [address] [place] [address] GFR/1.73 sq M predicted among blacks MDRD vol rate/area (S/P/Bld) mL/min/{1.73_m2} Normal >60 [facility] Comment on above: Performed By: #### H EMDF, PT, BMP3M, PHOS3, MG3, CK3 #### [address], [place] #### VD25H #### [facility] [address] [place] [address] GFR/1.73 sq M predicted among non-blacks MDRD vol rate/area (S/P/Bld) mL/min/{1.73_m2} Normal >60 [facility] Comment on above: Result Comment: Sour ce- MDRD equation with creatinine calibration to IDMS(NKDEP) eGFR not recommended for drug dose adjustment Performed By: #### H EMDF, PT, BMP3M, PHOS3, MG3, CK3 #### [facility] [address] [place] [address] #### VD25H #### [facility] [address] [place] [address] Chloride molar conc 100 mmol/L Normal 98-107 [facility] Comment on above: Performed By: #### H EMDF, PT, BMP3M, PHOS3, MG3, CK3 #### [place] [address] [facility], [place] #### VD25H #### [facility] [address] [place] [address] Potassium molar conc 3.3 mmol/L Low 3.5-5.1 [facility] Comment on above: Performed By: #### H EMDF, PT, BMP3M, PHOS3, MG3, CK3 #### [address], [place] #### VD25H #### [facility] [address] [place] [address] Sodium molar conc 140 mmol/L Normal 135-145 [facility] Comment on above: Performed By: #### H EMDF, PT, BMP3M, PHOS3, MG3, CK3 #### [facility] [address] [facility], [place] #### VD25H #### [facility] [address] [place] [address] Glucose,Bedsideon 08-20-2018 Glucose mass conc 121 mg/dL High 70-100 [facility] Comment on above: Result Comment: Test performed by glucose meter. Results may be 10%-15% lower than serum/plasma values. (CLIA ID [id number]) Performed By: #### H EMDF, PT, BMP3M, PHOS3, MG3, CK3 #### [place] [address] [address] [place] #### VD25H #### [facility] [address] [place] [address] Glucose mass conc 127 mg/dL High 70-100 [facility] Comment on above: Result Comment: Test performed by glucose meter. Results may be 10%-15% lower than serum/plasma values. (CLIA ID [id number]) Performed By: #### H EMDF, PT, BMP3M, PHOS3, MG3, CK3 #### [place] [address] [place], [place] #### VD25H #### [facility] [address] [place] [address] Hep A Abs, Totalon 9 Hep A Abs, Total Negative Normal Negative [facility] Comment on above: Result Comment: Perf ormed by [employer], [address] [place] [id number] [email or web address] Lay MD - Lab. Director Performed By: #### H EMDF, PT, BMP3M, PHOS3, MG3, CK3 #### [address] #### VD25H #### [facility] [address] [place] [address] Basic Metabolic Panelon - Anion gap molar conc 1 Normal [facility] Comment on above: Performed By: #### H EMDF, PT, BMP3M, PHOS3, MG3, CK3 #### [address] #### VD25H #### [facility] [address] [place] [address] Calcium mass conc 7.6 mg/dL Low 8.4-10.4 [facility] Comment on above: Performed By: #### H EMDF, PT, BMP3M, PHOS3, MG3, CK3 #### [address] #### VD25H #### [facility] [address] [place] [address] CO2 molar conc 33 mmol/L High 22-30 [facility] Comment on above: Performed By: #### H EMDF, PT, BMP3M, PHOS3, MG3, CK3 #### [place] [address] [address] [place] #### VD25H #### [facility] [address] [place] [address] Glucose mass conc 139 mg/dL High 70-100 [facility] Comment on above: Performed By: #### H EMDF, PT, BMP3M, PHOS3, MG3, CK3 #### [address] #### VD25H #### [place] [address] [place] [address] Urea nitrogen mass conc 10 mg/dL Normal 7-20 [facility] Comment on above: Performed By: #### H EMDF, PT, BMP3M, PHOS3, MG3, CK3 #### [address] #### VD25H #### [facility] [address] [place] [address] Creatinine mass conc 0.57 mg/dL Normal 0.52-1.25 [facility] Comment on above: Performed By: #### H EMDF, PT, BMP3M, PHOS3, MG3, CK3 #### [place] [address] [address] [place] #### VD25H #### [facility] [address] [place] [address] GFR/1.73 sq M predicted among blacks MDRD vol rate/area (S/P/Bld) mL/min/{1.73_m2} Normal >60 [facility] Comment on above: Performed By: #### H EMDF, PT, BMP3M, PHOS3, MG3, CK3 #### [address] #### VD25H #### [facility] [address] [place] [address] GFR/1.73 sq M predicted among non-blacks MDRD vol rate/area (S/P/Bld) mL/min/{1.73_m2} Normal >60 [facility] Comment on above: Result Comment: Sour ce- MDRD equation with creatinine calibration to IDMS(NKDEP) eGFR not recommended for drug dose adjustment Performed By: #### H EMDF, PT, BMP3M, PHOS3, MG3, CK3 #### [facility] [address] [place] #### VD25H #### [facility] [address] [place] [address] Potassium molar conc 3.4 mmol/L Low 3.5-5.1 [facility] Comment on above: Performed By: #### H EMDF, PT, BMP3M, PHOS3, MG3, CK3 #### [facility] [address] [place] #### VD25H #### [facility] [address] [place] [address] Chloride molar conc 104 mmol/L Normal 98-107 [facility] Comment on above: Performed By: #### H EMDF, PT, BMP3M, PHOS3, MG3, CK3 #### [facility] [address] [place], [place] #### VD25H #### [facility] [address] [place] [address] Sodium molar conc 138 mmol/L Normal 135-145 [facility] Comment on above: Performed By: #### H EMDF, PT, BMP3M, PHOS3, MG3, CK3 #### [address] #### VD25H #### [facility] [address] [place] [address] CULT./ST. BACTERIAon 019 CULT./ST. BACTERIA STAIN GRAM [...] Acid(CHRISTI) = 4 S Ampicillin(CHRISTI) R Ampicillin/Sulbactam( CHRISTI) = 8 [...] 0.12 S Vancomycin(CHRISTI) = 1 S Normal [employer] [facility] Comment on above: Order Comment: or co llected Performed By: #### H EMDF, PT, BMP3M, PHOS3, MG3, CK3 #### [facility] [address] [facility], [place] #### VD25H #### [facility] [address] [place] [address] Basic Metabolic Panelon 04-2 Calcium mass conc 7.8 mg/dL Low 8.4-10.4 [facility] Comment on above: Performed By: #### H EMDF, PT, BMP3M, PHOS3, MG3, CK3 #### [place] [address] [address] [facility], [place] #### VD25H #### [facility] [address] [place] [address] Glucose mass conc 104 mg/dL High 70-100 [facility] Comment on above: Performed By: #### H EMDF, PT, BMP3M, PHOS3, MG3, CK3 #### [place] [address] [address] [facility] #### VD25H #### [facility] [address] [place] [address] Urea nitrogen mass conc 12 mg/dL Normal 7-20 [facility] Comment on above: Performed By: #### H EMDF, PT, BMP3M, PHOS3, MG3, CK3 #### [address] [facility], [place] #### VD25H #### [facility] [address] [place] [address] Anion gap molar conc 5 Normal [facility] Comment on above: Performed By: #### H EMDF, PT, BMP3M, PHOS3, MG3, CK3 #### [place] [address] [address] [facility], [place] #### VD25H #### [facility] [address] [place] [address] CO2 molar conc 26 mmol/L Normal 22-30 [facility] Comment on above: Performed By: #### H EMDF, PT, BMP3M, PHOS3, MG3, CK3 #### [place] [address] [address] [place] #### VD25H #### [facility] [address] [place] [address] Creatinine mass conc 0.61 mg/dL Normal 0.52-1.25 [facility] Comment on above: Performed By: #### H EMDF, PT, BMP3M, PHOS3, MG3, CK3 #### [facility] [address] [place] #### VD25H #### [facility] [address] [place] [address] GFR/1.73 sq M predicted among blacks MDRD vol rate/area (S/P/Bld) mL/min/{1.73_m2} Normal >60 [facility] Comment on above: Performed By: #### H EMDF, PT, BMP3M, PHOS3, MG3, CK3 #### [place] [address] [address] [place] #### VD25H #### [facility] [address] [place] [address] GFR/1.73 sq M predicted among non-blacks MDRD vol rate/area (S/P/Bld) mL/min/{1.73_m2} Normal >60 [facility] Comment on above: Result Comment: Sour ce- MDRD equation with creatinine calibration to IDMS(NKDEP) eGFR not recommended for drug dose adjustment Performed By: #### H EMDF, PT, BMP3M, PHOS3, MG3, CK3 #### [facility] [address] [place] #### VD25H #### [facility] [address] [place] [address] Chloride molar conc 107 mmol/L Normal 98-107 [facility] Comment on above: Performed By: #### H EMDF, PT, BMP3M, PHOS3, MG3, CK3 #### [facility] [address] [place] #### VD25H #### [facility] [address] [place] [address] Potassium molar conc 3.4 mmol/L Low 3.5-5.1 [facility] Comment on above: Performed By: #### H EMDF, PT, BMP3M, PHOS3, MG3, CK3 #### [facility] [address] [place] #### VD25H #### [facility] [address] [place] Sodium molar conc 138 mmol/L Normal 135-145 [facility] Comment on above: Performed By: #### H EMDF, PT, BMP3M, PHOS3, MG3, CK3 #### [facility] [address] [place] #### VD25H #### [facility] [address] [place] [address] Glucose,Bedsideon 08-18-2018 Glucose mass conc 113 mg/dL High 70-100 [facility] Comment on above: Result Comment: Test performed by glucose meter. Results may be 10%-15% lower than serum/plasma values. (CLIA ID [id number]) Performed By: #### H EMDF, PT, BMP3M, PHOS3, MG3, CK3 #### [place] [address] [address] [place] #### VD25H #### [facility] [address] [place] [address] Hemogram w/ Autodiffon 08-18 Erythrocyte distribution width Ratio (RBC) 14.4 % Normal 11.5-14.5 [facility] Comment on above: Performed By: #### H EMDF, PT, BMP3M, PHOS3, MG3, CK3 #### [facility] [address] [place], [place] #### VD25H #### [facility] [address] [place] [address] Hematocrit Volume Fraction (Bld) 29.3 % Low 40.0-52.0 [facility] Comment on above: Performed By: #### H EMDF, PT, BMP3M, PHOS3, MG3, CK3 #### [facility] [address] [place], [place] #### VD25H #### [facility] [address] [place] [address] Hemoglobin mass conc (Bld) 9.8 g/dL Low 13.0-18.0 [facility] Comment on above: Performed By: #### H EMDF, PT, BMP3M, PHOS3, MG3, CK3 #### [address] #### VD25H #### [facility] [address] [facility] [place] [address] MCH Entitic mass (RBC) 28.0 pg Normal 26.0-34.0 [facility] Comment on above: Performed By: #### H EMDF, PT, BMP3M, PHOS3, MG3, CK3 #### [address] #### VD25H #### [facility] [address] [facility] [place] [address] MCHC mass conc (RBC) 33.4 % Normal 32.0-36.0 [facility] Comment on above: Performed By: #### H EMDF, PT, BMP3M, PHOS3, MG3, CK3 #### [address] #### VD25H #### [facility] [address] [place] [address] MCV Entitic volume (RBC) 84.1 fL Normal 80.0-98.0 [facility] Comment on above: Performed By: #### H EMDF, PT, BMP3M, PHOS3, MG3, CK3 #### [address] #### VD25H #### [facility] [address] [facility] [address] Platelet mean volume Entitic volume (Bld) 7.9 fL Normal 7.4-10.4 [facility] Comment on above: Performed By: #### H EMDF, PT, BMP3M, PHOS3, MG3, CK3 #### [address] #### VD25H #### [facility] [address] [place] [address] Platelets #/vol (Bld) 301 10*3/uL Normal 140-440 [facility] Comment on above: Performed By: #### H EMDF, PT, BMP3M, PHOS3, MG3, CK3 #### [address] [place], [place] #### VD25H #### [place] [address] [place] [address] RBC #/vol (Bld) 3.49 10*6/uL Low 4.40-5.90 [facility] Comment on above: Performed By: #### H EMDF, PT, BMP3M, PHOS3, MG3, CK3 #### [address] #### VD25H #### [place] [address] [place] [address] WBC #/vol (Bld) 8.3 10*3/uL Normal 3.6-10.7 [facility] Comment on above: Performed By: #### H EMDF, PT, BMP3M, PHOS3, MG3, CK3 #### [address] #### VD25H #### [place] [address] [place] [address] Magnesiumon 08-18-2018 Magnesium mass conc 2.0 mg/dL Normal 1.6-2.3 [facility] Comment on above: Performed By: #### H EMDF, PT, BMP3M, PHOS3, MG3, CK3 #### [address] #### VD25H #### [place] [address] [place] [address] Manual Diffon 08-18-2018 Abs Neutrophile Cnt 5.1 10*3/uL Normal 2.2-8.2 [facility] Comment on above: Performed By: #### H EMDF, PT, BMP3M, PHOS3, MG3, CK3 #### [facility] [address] [place] #### VD25H #### [facility] [address] [place] [address] Bands 3 % Normal 0-3 [facility] Comment on above: Performed By: #### H EMDF, PT, BMP3M, PHOS3, MG3, CK3 #### [place] [address] [address] [place] #### VD25H #### [facility] [address] [place] [address] Eosinophils #/vol (Bld) 0.2 10*3/uL Normal 0.0-0.5 [facility] Comment on above: Performed By: #### H EMDF, PT, BMP3M, PHOS3, MG3, CK3 #### [facility] [address] [place] #### VD25H #### [facility] [address] [place] [address] Eosinophils/100 WBC (Bld) 2 % Normal 1-6 [facility] Comment on above: Performed By: #### H EMDF, PT, BMP3M, PHOS3, MG3, CK3 #### [facility] [address] [place] #### VD25H #### [facility] [address] [place] [address] Lymphocytes #/vol (Bld) 2.1 10*3/uL Normal 1.1-4.5 [facility] Comment on above: Performed By: #### H EMDF, PT, BMP3M, PHOS3, MG3, CK3 #### [facility] [address] [place] #### VD25H #### [facility] [address] [place] [address] Lymphocytes/100 WBC (Bld) 25 % Normal 20-40 [facility] Comment on above: Performed By: #### H EMDF, PT, BMP3M, PHOS3, MG3, CK3 #### [place] [address] [address] [place] #### VD25H #### [facility] [address] [place] [address] Metamyelocytes 1 % Abnormal <1 [facility] Comment on above: Performed By: #### H EMDF, PT, BMP3M, PHOS3, MG3, CK3 #### [place] [address] [place] #### VD25H #### [facility] [address] [place] [address] Monocytes #/vol (Bld) 0.6 10*3/uL Normal 0.2-1.1 [facility] Comment on above: Performed By: #### H EMDF, PT, BMP3M, PHOS3, MG3, CK3 #### [address] #### VD25H #### [facility] [address] [place] [address] Monocytes/100 WBC (Bld) 7 % Normal 2-10 [facility] Comment on above: Performed By: #### H EMDF, PT, BMP3M, PHOS3, MG3, CK3 #### [place] [address] [place], [place] #### VD25H #### [facility] [address] [place] [address] Myelocytes 1 % Abnormal <1 [facility] Comment on above: Performed By: #### H EMDF, PT, BMP3M, PHOS3, MG3, CK3 #### [address] #### VD25H #### [facility] [address] [place] [address] Protein mass conc 2 % Abnormal <1 [facility] Comment on above: Performed By: #### H EMDF, PT, BMP3M, PHOS3, MG3, CK3 #### [place] [address] [address] [place] #### VD25H #### [facility] [address] [place] [address] RBC morphology finding Nom (Bld) See Prev Normal [facility] Comment on above: Performed By: #### H EMDF, PT, BMP3M, PHOS3, MG3, CK3 #### [place] [address] [place] #### VD25H #### [facility] [address] [place] [address] Seg Neutrophils 59 % Normal 40-80 [facility] Comment on above: Performed By: #### H EMDF, PT, BMP3M, PHOS3, MG3, CK3 #### [address] #### VD25H #### [facility] [address] [place] [address] Abs Baso Cnt 0.0 10*3/uL Normal 0.0-0.2 [facility] Comment on above: Performed By: #### H EMDF, PT, BMP3M, PHOS3, MG3, CK3 #### [address] #### VD25H #### [facility] [address] [place] [address] Basophils/100 WBC (Bld) 0 % Normal 0-[address] [facility] Comment on above: Performed By: #### H EMDF, PT, BMP3M, PHOS3, MG3, CK3 #### [address] #### VD25H #### [facility] [address] [place] [address] Cells counted 100 Normal [facility] Comment on above: Performed By: #### H EMDF, PT, BMP3M, PHOS3, MG3, CK3 #### [place] [address] [place], [place] #### VD25H #### [facility] [address] [place] [address] Phosphoruson 08-18-2018 Phosphate mass conc 4.6 mg/dL High 2.5-4.5 [facility] Comment on above: Performed By: #### H EMDF, PT, BMP3M, PHOS3, MG3, CK3 #### [place] [address] [address] [place] #### VD25H #### [facility] [address] [place] [address] Basic Metabolic Panelon 07-30 Calcium mass conc 7.7 mg/dL Low 8.4-10.4 [facility] Comment on above: Performed By: #### H EMDF, PT, BMP3M, PHOS3, MG3, CK3 #### [place] [address] [place], [place] #### VD25H #### [place] [address] [place] [address] Anion gap molar conc 7 Normal [facility] Comment on above: Performed By: #### H EMDF, PT, BMP3M, PHOS3, MG3, CK3 #### [place] [address] [address] [facility] #### VD25H #### [facility] [address] [place] [address] CO2 molar conc 25 mmol/L Normal 22-30 [facility] Comment on above: Performed By: #### H EMDF, PT, BMP3M, PHOS3, MG3, CK3 #### [place] [address] [address] [facility] #### VD25H #### [facility] [address] [place] [address] Creatinine mass conc 0.59 mg/dL Normal 0.52-1.25 [facility] Comment on above: Performed By: #### H EMDF, PT, BMP3M, PHOS3, MG3, CK3 #### [place] [address] [address] [place] #### VD25H #### [facility] [address] [place] [address] GFR/1.73 sq M predicted among blacks MDRD vol rate/area (S/P/Bld) mL/min/{1.73_m2} Normal >60 [facility] Comment on above: Performed By: #### H EMDF, PT, BMP3M, PHOS3, MG3, CK3 #### [place] [address] [address] [place] #### VD25H #### [place] [address] [place] [address] GFR/1.73 sq M predicted among non-blacks MDRD vol rate/area (S/P/Bld) mL/min/{1.73_m2} Normal >60 [facility] Comment on above: Result Comment: Sour ce- MDRD equation with creatinine calibration to IDMS(NKDEP) eGFR not recommended for drug dose adjustment Performed By: #### H EMDF, PT, BMP3M, PHOS3, MG3, CK3 #### [address] #### VD25H #### [place] [address] [place] [address] Glucose mass conc 116 mg/dL High 70-100 [facility] Comment on above: Performed By: #### H EMDF, PT, BMP3M, PHOS3, MG3, CK3 #### [address] [place], [place] #### VD25H #### [place] [address] [place] [address] Urea nitrogen mass conc 12 mg/dL Normal 7-20 [facility] Comment on above: Performed By: #### H EMDF, PT, BMP3M, PHOS3, MG3, CK3 #### [address] #### VD25H #### [place] [address] [place] [address] Potassium molar conc 3.2 mmol/L Low 3.5-5.1 [facility] Comment on above: Performed By: #### H EMDF, PT, BMP3M, PHOS3, MG3, CK3 #### [facility] [address] [place] [address] #### VD25H #### [facility] [address] [place] [address] Sodium molar conc 138 mmol/L Normal 135-145 [facility] Comment on above: Performed By: #### H EMDF, PT, BMP3M, PHOS3, MG3, CK3 #### [facility] [address] [place] [address] #### VD25H #### [facility] [address] [place] [address] Chloride molar conc 106 mmol/L Normal 98-107 [facility] Comment on above: Performed By: #### H EMDF, PT, BMP3M, PHOS3, MG3, CK3 #### [facility] [address] [place] [address] #### VD25H #### [facility] [address] [place] [address] CR Chest Portableon 08-18-19 CR Chest Portable Patient Name: KATHYA HOOPER Diagnostic Radiology Exam Date/Time 08/17/2018 17:54:46 EDT Exam CR Chest Portable Ordering Physician SALO DAVIS Accession Number [id number] CPT4 Codes 90509 () Reason For Exam line placement Report [...] Transcribed Date and Time: 08/17/2018 6:05 Normal [facility] CR Chest Portable Patient Name: KATHYA HOOPER Diagnostic Radiology Exam Date/Time 08/17/2018 06:11:03 EDT Exam CR Chest Portable Ordering Physician ETIENNE VELÁSQUEZ KATHYA Costa Accession Number [id number] CPT4 Codes 52862 () Reason For Exam follow left pleural [...] Transcribed Date and Time: 08/17/2018 7:16 Normal [facility] Ferritinon 08-17-2018 Ferritin mass conc 1100 ng/mL High 18-464 [facility] Comment on above: Performed By: #### H EMDF, PT, BMP3M, PHOS3, MG3, CK3 #### [facility] [address] [place] [address] #### VD25H #### [facility] [address] [place] [address] Folateon 08-17-2018 Folate 15.1 ng/mL Normal 2.8-20.0 [facility] Comment on above: Performed By: #### H EMDF, PT, BMP3M, PHOS3, MG3, CK3 #### [facility] [address] [place], [place] #### VD25H #### [facility] [address] [place] [address] Glucose,Bedsideon 08-17-2018 Glucose mass conc 133 mg/dL High 70-100 [facility] Comment on above: Result Comment: Test performed by glucose meter. Results may be 10%-15% lower than serum/plasma values. (CLIA ID [id number]) Performed By: #### H EMDF, PT, BMP3M, PHOS3, MG3, CK3 #### [address] #### VD25H #### [facility] [employer] [facility] [address] [place] [address] Hemoglobin A1Con 08-17-2018 Hemoglobin A1c/Hemoglobin.total mass fraction (Bld) 117 mg/dL Normal [facility] Comment on above: Performed By: #### H EMDF, PT, BMP3M, PHOS3, MG3, CK3 #### [address] #### VD25H #### [facility] [address] [place] [address] Hemoglobin A1c/Hemoglobin.total mass fraction (Bld) 5.7 % Normal 4.0-5.7 [facility] Comment on above: Result Comment: --Hg bA1C levels may not be accurate in patients who have renal disease, received recent blood transfusions, are anemic, or who have dyshemoglobinemia. Performed By: #### H EMDF, PT, BMP3M, PHOS3, MG3, CK3 #### [address] #### VD25H #### [facility] [address] [place] [address] Hemogram w/ Autodiffon 08-17 Erythrocyte distribution width Ratio (RBC) 14.3 % Normal 11.5-14.5 [facility] Comment on above: Performed By: #### H EMDF, PT, BMP3M, PHOS3, MG3, CK3 #### [facility] [address] [place], [place] #### VD25H #### [facility] [address] [place] [address] Hematocrit Volume Fraction (Bld) 29.1 % Low 40.0-52.0 [facility] Comment on above: Performed By: #### H EMDF, PT, BMP3M, PHOS3, MG3, CK3 #### [address] #### VD25H #### [facility] [address] [place] [address] Hemoglobin mass conc (Bld) 9.8 g/dL Low 13.0-18.0 [facility] Comment on above: Performed By: #### H EMDF, PT, BMP3M, PHOS3, MG3, CK3 #### [address] #### VD25H #### [facility] [address] [place] [address] MCH Entitic mass (RBC) 28.4 pg Normal 26.0-34.0 [facility] Comment on above: Performed By: #### H EMDF, PT, BMP3M, PHOS3, MG3, CK3 #### [address] [place], [place] #### VD25H #### [facility] [address] [place] [address] MCHC mass conc (RBC) 33.5 % Normal 32.0-36.0 [facility] Comment on above: Performed By: #### H EMDF, PT, BMP3M, PHOS3, MG3, CK3 #### [address] #### VD25H #### [facility] [address] [place] [address] MCV Entitic volume (RBC) 84.7 fL Normal 80.0-98.0 [facility] Comment on above: Performed By: #### H EMDF, PT, BMP3M, PHOS3, MG3, CK3 #### [facility] [address] [place], [place] #### VD25H #### [facility] [address] [place] [address] Platelet mean volume Entitic volume (Bld) 8.1 fL Normal 7.4-10.4 [facility] Comment on above: Performed By: #### H EMDF, PT, BMP3M, PHOS3, MG3, CK3 #### [address] #### VD25H #### [facility] [address] [place] [address] Platelets #/vol (Bld) 281 10*3/uL Normal 140-440 [facility] Comment on above: Performed By: #### H EMDF, PT, BMP3M, PHOS3, MG3, CK3 #### [address] #### VD25H #### [facility] [address] [place] [address] RBC #/vol (Bld) 3.44 10*6/uL Low 4.40-5.90 [facility] Comment on above: Performed By: #### H EMDF, PT, BMP3M, PHOS3, MG3, CK3 #### [address] #### VD25H #### [facility] [address] [place] [address] WBC #/vol (Bld) 8.3 10*3/uL Normal 3.6-10.7 [facility] Comment on above: Performed By: #### H EMDF, PT, BMP3M, PHOS3, MG3, CK3 #### [address] #### VD25H #### [facility] [address] [place] [address] Hep B Surface Abon 9 Hep B Surface Ab < 8.0 Normal [facility] Comment on above: Result Comment: Inte rpretation: <8.0 Non-Reactive 8.0-11.9 Equivocal >= 12.0 Ab Detected Performed By: #### H EMDF, PT, BMP3M, PHOS3, MG3, CK3 #### [facility] [address] [place], [place] #### VD25H #### [facility] [address] [place] [address] Hep B Surface Agon 9 Hep B Surface Ag NOT DETECTED Normal Not-Detected [facility] Comment on above: Performed By: #### H EMDF, PT, BMP3M, PHOS3, MG3, CK3 #### [address] #### VD25H #### [facility] [address] [place] [address] Hep C Antibodyon 08-17-2018 Hep C Antibody NOT DETECTED Normal Not-Detected [facility] Comment on above: Result Comment: Bharti ents with DETECTED Hepatitis C Ab results should have a new specimen submitted for supplemental testing with a Hepatitis C Quantitative RNA assay (viral load), if clinically indicated. Performed By: #### H EMDF, PT, BMP3M, PHOS3, MG3, CK3 #### [facility] [address] [place], [place] #### VD25H #### [facility] [address] [place] [address] Hepatic Functionon 9 ALP enzyme act/vol 116 U/L Normal 38-126 [facility] Comment on above: Performed By: #### H EMDF, PT, BMP3M, PHOS3, MG3, CK3 #### [address] #### VD25H #### [facility] [address] [place] [address] ALT enzyme act/vol 370 U/L High 13-69 [facility] Comment on above: Performed By: #### H EMDF, PT, BMP3M, PHOS3, MG3, CK3 #### [facility] [address] [place] #### VD25H #### [facility] [address] [place] [address] AST enzyme act/vol 150 U/L High 15-46 [facility] Comment on above: Performed By: #### H EMDF, PT, BMP3M, PHOS3, MG3, CK3 #### [address] [place], [place] #### VD25H #### [facility] [address] [place] [address] Bilirubin mass conc 0.7 mg/dL Normal 0.2-1.3 [facility] Comment on above: Performed By: #### H EMDF, PT, BMP3M, PHOS3, MG3, CK3 #### [address] [place] #### VD25H #### [facility] [address] [place] [address] Bilirubin.direct mass conc 0.0 mg/dL Normal 0.0-0.3 [facility] Comment on above: Performed By: #### H EMDF, PT, BMP3M, PHOS3, MG3, CK3 #### [facility] [address] [place] #### VD25H #### [facility] [address] [place] [address] Protein mass conc 5.4 g/dL Low 6.3-8.2 [facility] Comment on above: Performed By: #### H EMDF, PT, BMP3M, PHOS3, MG3, CK3 #### [address] [place] #### VD25H #### [facility] [address] [place] [address] Albumin mass conc 2.5 g/dL Low 3.5-5.0 [facility] Comment on above: Performed By: #### H EMDF, PT, BMP3M, PHOS3, MG3, CK3 #### [facility] [address] [place] #### VD25H #### [facility] [address] [place] [address] Iron AND TIBCon 08-17-2018 Saturation 14 % Low 15-50 [facility] Comment on above: Performed By: #### H EMDF, PT, BMP3M, PHOS3, MG3, CK3 #### [address] [place] #### VD25H #### [facility] [address] [place] [address] Total Iron Binding Cap. 166 ug/dL Low 261-497 [facility] Comment on above: Performed By: #### H EMDF, PT, BMP3M, PHOS3, MG3, CK3 #### [address] [place] #### VD25H #### [facility] [address] [place] [address] Iron, Total 23 ug/dL Low 49-181 [facility] Comment on above: Performed By: #### H EMDF, PT, BMP3M, PHOS3, MG3, CK3 #### [facility] [address] [place] #### VD25H #### [facility] [address] [place] [address] Magnesiumon 08-17-2018 Magnesium mass conc 2.0 mg/dL Normal 1.6-2.3 [facility] Comment on above: Performed By: #### H EMDF, PT, BMP3M, PHOS3, MG3, CK3 #### [address] [place] #### VD25H #### [facility] [address] [place] [address] Manual Diffon 08-17-2018 Abs Baso Cnt 0.1 10*3/uL Normal 0.0-0.2 [facility] Comment on above: Performed By: #### H EMDF, PT, BMP3M, PHOS3, MG3, CK3 #### [address] [place], [place] #### VD25H #### [facility] [address] [place] [address] Abs Neutrophile Cnt 5.6 10*3/uL Normal 2.2-8.2 [facility] Comment on above: Performed By: #### H EMDF, PT, BMP3M, PHOS3, MG3, CK3 #### [address] #### VD25H #### [facility] [address] [place] [address] Anisocytosis Ql (Bld) Slight Normal [facility] Comment on above: Performed By: #### H EMDF, PT, BMP3M, PHOS3, MG3, CK3 #### [address] #### VD25H #### [facility] [address] [place] [address] Bands 9 % High 0-3 [facility] Comment on above: Performed By: #### H EMDF, PT, BMP3M, PHOS3, MG3, CK3 #### [address] #### VD25H #### [facility] [address] [place] [address] Basophils/100 WBC (Bld) 1 % Normal 0-2 [facility] Comment on above: Performed By: #### H EMDF, PT, BMP3M, PHOS3, MG3, CK3 #### [address] #### VD25H #### [facility] [address] [place] [address] Eosinophils #/vol (Bld) 0.2 10*3/uL Normal 0.0-0.5 [facility] Comment on above: Performed By: #### H EMDF, PT, BMP3M, PHOS3, MG3, CK3 #### [facility] [address] [place] #### VD25H #### [facility] [address] [place] [address] Eosinophils/100 WBC (Bld) 3 % Normal 1-6 [facility] Comment on above: Performed By: #### H EMDF, PT, BMP3M, PHOS3, MG3, CK3 #### [address] [place] #### VD25H #### [facility] [address] [place] [address] Lymphocytes #/vol (Bld) 1.5 10*3/uL Normal 1.1-4.5 [facility] Comment on above: Performed By: #### H EMDF, PT, BMP3M, PHOS3, MG3, CK3 #### [address] #### VD25H #### [facility] [address] [place] [address] Lymphocytes/100 WBC (Bld) 18 % Low 20-40 [facility] Comment on above: Performed By: #### H EMDF, PT, BMP3M, PHOS3, MG3, CK3 #### [facility] [address] [place] #### VD25H #### [facility] [address] [place] [address] Monocytes #/vol (Bld) 0.4 10*3/uL Normal 0.2-1.1 [facility] Comment on above: Performed By: #### H EMDF, PT, BMP3M, PHOS3, MG3, CK3 #### [address] [place], [place] #### VD25H #### [facility] [address] [place] [address] Monocytes/100 WBC (Bld) 5 % Normal 2-[address] [facility] Comment on above: Performed By: #### H EMDF, PT, BMP3M, PHOS3, MG3, CK3 #### [facility] [address] [place] #### VD25H #### [facility] [address] [place] [address] Myelocytes 5 % Abnormal <1 [facility] Comment on above: Performed By: #### H EMDF, PT, BMP3M, PHOS3, MG3, CK3 #### [address] [place] #### VD25H #### [facility] [address] [place] [address] Polychromasia Slight Normal [facility] Comment on above: Performed By: #### H EMDF, PT, BMP3M, PHOS3, MG3, CK3 #### [address] [place] #### VD25H #### [facility] [address] [place] [address] RBC morphology finding Nom (Bld) ABNORMAL Normal [facility] Comment on above: Performed By: #### H EMDF, PT, BMP3M, PHOS3, MG3, CK3 #### [address] #### VD25H #### [facility] [address] [place] [address] Seg Neutrophils 59 % Normal 40-80 [facility] Comment on above: Performed By: #### H EMDF, PT, BMP3M, PHOS3, MG3, CK3 #### [address] #### VD25H #### [facility] [address] [place] [address] Toxic Granulation Slight Normal [facility] Comment on above: Performed By: #### H EMDF, PT, BMP3M, PHOS3, MG3, CK3 #### [address] [place], [place] #### VD25H #### [facility] [address] [place] [address] Cells counted 100 Normal [facility] Comment on above: Performed By: #### H EMDF, PT, BMP3M, PHOS3, MG3, CK3 #### [address] [place] #### VD25H #### [facility] [address] [place] [address] Phosphoruson 08-17-2018 Phosphate mass conc 3.9 mg/dL Normal 2.5-4.5 [facility] Comment on above: Performed By: #### H EMDF, PT, BMP3M, PHOS3, MG3, CK3 #### [address] [place] #### VD25H #### [facility] [address] [place] [address] Triglycerideon 08-17-2018 Triglyceride mass conc 104 mg/dL Normal <150 [facility] Comment on above: Performed By: #### H EMDF, PT, BMP3M, PHOS3, MG3, CK3 #### [address] [place] #### VD25H #### [facility] [address] [place] [address] Vitamin B12on 08-17-2018 Cobalamin (Vitamin B12) mass conc 615 pg/mL Normal 239-931 [facility] Comment on above: Performed By: #### H EMDF, PT, BMP3M, PHOS3, MG3, CK3 #### [address] #### VD25H #### [facility] [address] [place] [address] Albumin, Serumon 08-16-2018 Albumin mass conc 2.6 g/dL Low 3.5-5.0 [facility] Comment on above: Performed By: #### H EMDF, PT, BMP3M, PHOS3, MG3, CK3 #### [facility] [address] [place] [address] #### VD25H #### [facility] [address] [place] [address] CR Abdomen APon 08-16-2018 CR Abdomen AP Patient Name: KATHYA HOOPER Diagnostic Radiology Exam Date/Time 08/16/2018 10:17:24 EDT Exam CR Abdomen AP Ordering Physician JOEY CABALLERO Accession Number [id number] CPT4 Codes 41171 () Reason For Exam dobhoff placement Report [...] Transcribed Date and Time: 08/16/2018 12:33 Normal [facility] CR Chest Portableon 08-17-19 19 CR Chest Portable Patient Name: KATHYA HOOPER Diagnostic Radiology Exam Date/Time 08/16/2018 10:17:24 EDT Exam CR Chest Portable Ordering Physician JOEY CABALLERO Accession Number [id number] CPT4 Codes 80342 () Reason For Exam dyspnea Report PORTABLE [...] Transcribed Date and Time: 08/16/2018 12:31 Normal [facility] Comp Panel with Mg Reflexon 08-16-2018 Calcium mass conc 7.8 mg/dL Low 8.4-10.4 [facility] Comment on above: Performed By: #### H EMDF, PT, BMP3M, PHOS3, MG3, CK3 #### [facility] [address] [place], [place] #### VD25H #### [facility] [address] [place] [address] Glucose mass conc 114 mg/dL High 70-100 [facility] Comment on above: Performed By: #### H EMDF, PT, BMP3M, PHOS3, MG3, CK3 #### [address] #### VD25H #### [facility] [address] [facility] [place] [address] ALP enzyme act/vol 114 U/L Normal 38-126 [facility] Comment on above: Performed By: #### H EMDF, PT, BMP3M, PHOS3, MG3, CK3 #### [address] #### VD25H #### [facility] [address] [place] [address] ALT enzyme act/vol 539 U/L High 13-69 [facility] Comment on above: Performed By: #### H EMDF, PT, BMP3M, PHOS3, MG3, CK3 #### [address] [place] #### VD25H #### [facility] [address] [place] [address] Anion gap molar conc 4 Normal [facility] Comment on above: Performed By: #### H EMDF, PT, BMP3M, PHOS3, MG3, CK3 #### [address] [place] #### VD25H #### [facility] [address] [place] [address] AST enzyme act/vol 460 U/L High 15-46 [facility] Comment on above: Performed By: #### H EMDF, PT, BMP3M, PHOS3, MG3, CK3 #### [address] #### VD25H #### [facility] [address] [place] [address] Bilirubin mass conc 0.7 mg/dL Normal 0.2-1.3 [facility] Comment on above: Performed By: #### H EMDF, PT, BMP3M, PHOS3, MG3, CK3 #### [address] [address] [place], [place] #### VD25H #### [facility] [address] [place] [address] CO2 molar conc 25 mmol/L Normal 22-30 [facility] Comment on above: Performed By: #### H EMDF, PT, BMP3M, PHOS3, MG3, CK3 #### [address] #### VD25H #### [facility] [address] [place] [address] Creatinine mass conc 0.71 mg/dL Normal 0.52-1.25 [facility] Comment on above: Performed By: #### H EMDF, PT, BMP3M, PHOS3, MG3, CK3 #### [facility] [address] [place] #### VD25H #### [facility] [address] [place] [address] GFR/1.73 sq M predicted among blacks MDRD vol rate/area (S/P/Bld) mL/min/{1.73_m2} Normal >60 [facility] Comment on above: Performed By: #### H EMDF, PT, BMP3M, PHOS3, MG3, CK3 #### [address] [place] #### VD25H #### [facility] [address] [place] [address] GFR/1.73 sq M predicted among non-blacks MDRD vol rate/area (S/P/Bld) mL/min/{1.73_m2} Normal >60 [facility] Comment on above: Result Comment: Sour ce- MDRD equation with creatinine calibration to IDMS(NKDEP) eGFR not recommended for drug dose adjustment Performed By: #### H EMDF, PT, BMP3M, PHOS3, MG3, CK3 #### [address] #### VD25H #### [facility] [address] [place] [address] Protein mass conc 5.1 g/dL Low 6.3-8.2 [facility] Comment on above: Performed By: #### H EMDF, PT, BMP3M, PHOS3, MG3, CK3 #### [address] [place] #### VD25H #### [facility] [address] [place] [address] Urea nitrogen mass conc 22 mg/dL High 7-20 [facility] Comment on above: Performed By: #### H EMDF, PT, BMP3M, PHOS3, MG3, CK3 #### [address] [place] [address] [place], [place] #### VD25H #### [facility] [address] [place] [address] Chloride molar conc 102 mmol/L Normal 98-107 [facility] Comment on above: Performed By: #### H EMDF, PT, BMP3M, PHOS3, MG3, CK3 #### [address] [place] #### VD25H #### [facility] [address] [place] [address] Potassium molar conc 3.1 mmol/L Low 3.5-5.1 [facility] Comment on above: Performed By: #### H EMDF, PT, BMP3M, PHOS3, MG3, CK3 #### [address] #### VD25H #### [facility] [address] [place] [address] Sodium molar conc 131 mmol/L Low 135-145 [facility] Comment on above: Performed By: #### H EMDF, PT, BMP3M, PHOS3, MG3, CK3 #### [address] #### VD25H #### [facility] [address] [place] [address] Albumin mass conc 2.4 g/dL Low 3.5-5.0 [facility] Comment on above: Performed By: #### H EMDF, PT, BMP3M, PHOS3, MG3, CK3 #### [address] [place] #### VD25H #### [facility] [address] [place] [address] Glucose,Bedsideon 08-16-2018 Glucose mass conc 100 mg/dL Normal 70-100 [facility] Comment on above: Result Comment: Test performed by glucose meter. Results may be 10%-15% lower than serum/plasma values. (CLIA ID [id number]) Performed By: #### H EMDF, PT, BMP3M, PHOS3, MG3, CK3 #### [facility] [address] [place] [address] #### VD25H #### [facility] [address] [place] [address] Glucose mass conc 98 mg/dL Normal 70-100 [facility] Comment on above: Result Comment: Test performed by glucose meter. Results may be 10%-15% lower than serum/plasma values. (CLIA ID [id number]) Performed By: #### H EMDF, PT, BMP3M, PHOS3, MG3, CK3 #### [facility] [address] [facility] [place] [address] #### VD25H #### [facility] [address] [place] [address] Glucose mass conc 110 mg/dL High 70-100 [facility] Comment on above: Result Comment: Test performed by glucose meter. Results may be 10%-15% lower than serum/plasma values. (CLIA ID [id number]) Performed By: #### H EMDF, PT, BMP3M, PHOS3, MG3, CK3 #### [facility] [address] [place] [address] #### VD25H #### [facility] [address] [place] [address] Glucose mass conc 113 mg/dL High 70-100 [facility] Comment on above: Result Comment: Test performed by glucose meter. Results may be 10%-15% lower than serum/plasma values. (CLIA ID [id number]) Performed By: #### H EMDF, PT, BMP3M, PHOS3, MG3, CK3 #### [facility] [address] [facility] [place] [address] #### VD25H #### [facility] [address] [place] [address] Glucose mass conc 126 mg/dL High 70-100 [facility] Comment on above: Result Comment: Test performed by glucose meter. Results may be 10%-15% lower than serum/plasma values. (CLIA ID [id number]) Performed By: #### H EMDF, PT, BMP3M, PHOS3, MG3, CK3 #### [facility] [address] [place], [place] #### VD25H #### [facility] [address] [place] [address] Hemogram w/ Autodiffon 08-16 Abs Baso Cnt 0.0 10*3/uL Normal 0.0-0.2 [facility] Comment on above: Performed By: #### H EMDF, PT, BMP3M, PHOS3, MG3, CK3 #### [address] #### VD25H #### [facility] [address] [place] [address] Abs Neutrophile Cnt 7.7 10*3/uL High 1.8-7.0 [facility] Comment on above: Performed By: #### H EMDF, PT, BMP3M, PHOS3, MG3, CK3 #### [address] #### VD25H #### [facility] [address] [place] [address] Basophils/100 WBC (Bld) 0.5 % Normal 0.0-2.0 [facility] Comment on above: Performed By: #### H EMDF, PT, BMP3M, PHOS3, MG3, CK3 #### [address] #### VD25H #### [facility] [address] [place] [address] Eosinophils #/vol (Bld) 0.1 10*3/uL Normal 0.0-0.5 [facility] Comment on above: Performed By: #### H EMDF, PT, BMP3M, PHOS3, MG3, CK3 #### [address] #### VD25H #### [facility] [address] [place] [address] Eosinophils/100 WBC (Bld) 1.5 % Normal 1.0-6.0 [facility] Comment on above: Performed By: #### H EMDF, PT, BMP3M, PHOS3, MG3, CK3 #### [facility] [address] [place], [place] #### VD25H #### [facility] [address] [place] [address] Erythrocyte distribution width Ratio (RBC) 14.4 % Normal 11.5-14.5 [facility] Comment on above: Performed By: #### H EMDF, PT, BMP3M, PHOS3, MG3, CK3 #### [address] #### VD25H #### [facility] [address] [place] [address] Granulocytes/100 WBC (Bld) 79.7 % Normal 40.0-80.0 [facility] Comment on above: Performed By: #### H EMDF, PT, BMP3M, PHOS3, MG3, CK3 #### [address] #### VD25H #### [facility] [address] [place] [address] Hematocrit Volume Fraction (Bld) 27.1 % Low 40.0-52.0 [facility] Comment on above: Performed By: #### H EMDF, PT, BMP3M, PHOS3, MG3, CK3 #### [address] #### VD25H #### [facility] [address] [place] [address] Hemoglobin mass conc (Bld) 9.2 g/dL Low 13.0-18.0 [facility] Comment on above: Performed By: #### H EMDF, PT, BMP3M, PHOS3, MG3, CK3 #### [address] #### VD25H #### [facility] [address] [address] Lymphocytes #/vol (Bld) 1.0 10*3/uL Normal 1.0-4.3 [facility] Comment on above: Performed By: #### H EMDF, PT, BMP3M, PHOS3, MG3, CK3 #### [address] [place], [place] #### VD25H #### [facility] [address] [place] [address] Lymphocytes/100 WBC (Bld) 10.0 % Low 20.0-40.0 [facility] Comment on above: Performed By: #### H EMDF, PT, BMP3M, PHOS3, MG3, CK3 #### [address] #### VD25H #### [place] [address] [place] [address] MCH Entitic mass (RBC) 28.5 pg Normal 26.0-34.0 [facility] Comment on above: Performed By: #### H EMDF, PT, BMP3M, PHOS3, MG3, CK3 #### [address] #### VD25H #### [place] [address] [place] [address] MCHC mass conc (RBC) 33.8 % Normal 32.0-36.0 [facility] Comment on above: Performed By: #### H EMDF, PT, BMP3M, PHOS3, MG3, CK3 #### [address] #### VD25H #### [facility] [address] [facility] [place] [address] MCV Entitic volume (RBC) 84.4 fL Normal 80.0-98.0 [facility] Comment on above: Performed By: #### H EMDF, PT, BMP3M, PHOS3, MG3, CK3 #### [address] #### VD25H #### [facility] [address] [place] [address] Monocytes #/vol (Bld) 0.8 10*3/uL Normal 0.0-0.8 [facility] Comment on above: Performed By: #### H EMDF, PT, BMP3M, PHOS3, MG3, CK3 #### [address] #### VD25H #### [facility] [address] [place] [address] Monocytes/100 WBC (Bld) 8.3 % Normal 2.0-10.0 [facility] Comment on above: Performed By: #### H EMDF, PT, BMP3M, PHOS3, MG3, CK3 #### [address] #### VD25H #### [place] [address] [place] [address] Platelet mean volume Entitic volume (Bld) 8.4 fL Normal 7.4-10.4 [facility] Comment on above: Performed By: #### H EMDF, PT, BMP3M, PHOS3, MG3, CK3 #### [address] #### VD25H #### [place] [address] [place] [address] Platelets #/vol (Bld) 245 10*3/uL Normal 140-440 [facility] Comment on above: Performed By: #### H EMDF, PT, BMP3M, PHOS3, MG3, CK3 #### [address] #### VD25H #### [facility] [address] [place] [address] RBC #/vol (Bld) 3.21 10*6/uL Low 4.40-5.90 [facility] Comment on above: Performed By: #### H EMDF, PT, BMP3M, PHOS3, MG3, CK3 #### [address] #### VD25H #### [facility] [address] [place] [address] WBC #/vol (Bld) 9.7 10*3/uL Normal 3.6-10.7 [facility] Comment on above: Performed By: #### H EMDF, PT, BMP3M, PHOS3, MG3, CK3 #### [address] #### VD25H #### [facility] [address] [place] [address] Magnesiumon 08-16-2018 Magnesium mass conc 2.1 mg/dL Normal 1.6-2.3 [facility] Comment on above: Performed By: #### H EMDF, PT, BMP3M, PHOS3, MG3, CK3 #### [address] #### VD25H #### [facility] [address] [place] [address] Phosphoruson 08-16-2018 Phosphate mass conc 4.4 mg/dL Normal 2.5-4.5 [facility] Comment on above: Performed By: #### H EMDF, PT, BMP3M, PHOS3, MG3, CK3 #### [address] #### VD25H #### [facility] [address] [place] [address] Potassiumon 08-16-2018 Potassium molar conc 3.5 mmol/L Normal 3.5-5.1 [facility] Comment on above: Performed By: #### H EMDF, PT, BMP3M, PHOS3, MG3, CK3 #### [address] #### VD25H #### [facility] [address] [place] [address] Procalcitoninon 08-16-2018 Protein mass conc 3.10 ng/mL Abnormal <0.10 [facility] Comment on above: Performed By: #### H EMDF, PT, BMP3M, PHOS3, MG3, CK3 #### [address] #### VD25H #### [facility] [address] [place] [address] Prothrombin Timeon 9 INR Coag RelTime (PPP) 1.1 Normal 0.9-1.1 [facility] Comment on above: Result Comment: Yefri [...] EMDF, PT, BMP3M, PHOS3, MG3, CK3 #### [address] #### VD25H #### [facility] [address] [place] [address] Prothrombin time (PT) Coag time (PPP) 11.8 s Normal 9.0-12.0 [facility] Comment on above: Result Comment: . Performed By: #### H EMDF, PT, BMP3M, PHOS3, MG3, CK3 #### [address] #### VD25H #### [facility] [address] [place] [address] US Abdomen Limitedon 019 US Abdomen Limited Patient Name: KATHYA HOOPER Ultrasound Exam Date/Time 08/16/2018 19:12:00 EDT Exam US Abdomen Limited Ordering Physician [id number] ANNA Accession Number [id number] CPT4 Codes 77899 () Reason For Exam elevated transaminases Report [...] Transcribed Date and Time: 08/16/2018 7:26 Normal [facility] Glucose,Bedsideon 08-15-2018 Glucose mass conc 98 mg/dL Normal 70-100 [facility] Comment on above: Result Comment: Test performed by glucose meter. Results may be 10%-15% lower than serum/plasma values. (CLIA ID [id number]) Performed By: #### H EMDF, PT, BMP3M, PHOS3, MG3, CK3 #### [facility] [address] [place] [address] #### VD25H #### [facility] [address] [facility] [place] [address] Procalcitoninon 08-15-2018 Interpretation See Below Normal [facility] Comment on above: Result Comment: PCT <0.50 = Low risk of severe sepsis and/or septic shock. PCT >2.00 = High risk of severe sepsis and/or septic shock. Performed By: #### H EMDF, PT, BMP3M, PHOS3, MG3, CK3 #### [address] #### VD25H #### [facility] [address] [place] [address] CULTURE FUNGUSon 08-13-2018 CULTURE FUNGUS CULTURE FUNGUS --> Status: F No fungus isolated after 21 days. Normal [facility] Comment on above: Order Comment: Speci men Source Comment:Body Fluid Performed By: #### H EMDF, PT, BMP3M, PHOS3, MG3, CK3 #### [address] [place], [place] #### VD25H #### [facility] [address] [place] [address] Hemogram w/ Autodiffon 08-01 Abs Baso Cnt 0.2 10*3/uL Normal 0.0-0.2 [facility] Comment on above: Performed By: #### H EMDF, PT, BMP3M, PHOS3, MG3, CK3 #### [address] [place] #### VD25H #### [facility] [address] [place] [address] Abs Neutrophile Cnt 14.3 10*3/uL High 1.8-7.0 [facility] Comment on above: Performed By: #### H EMDF, PT, BMP3M, PHOS3, MG3, CK3 #### [address] #### VD25H #### [facility] [address] [place] [address] Basophils/100 WBC (Bld) 1.0 % Normal 0.0-2.0 [facility] Comment on above: Performed By: #### H EMDF, PT, BMP3M, PHOS3, MG3, CK3 #### [address] #### VD25H #### [facility] [address] [place] [address] Eosinophils #/vol (Bld) 0.4 10*3/uL Normal 0.0-0.5 [facility] Comment on above: Performed By: #### H EMDF, PT, BMP3M, PHOS3, MG3, CK3 #### [facility] [address] [place] #### VD25H #### [facility] [address] [place] [address] Eosinophils/100 WBC (Bld) 2.3 % Normal 1.0-6.0 [facility] Comment on above: Performed By: #### H EMDF, PT, BMP3M, PHOS3, MG3, CK3 #### [address] #### VD25H #### [facility] [address] [place] [address] Erythrocyte distribution width Ratio (RBC) 13.7 % Normal 11.5-14.5 [facility] Comment on above: Performed By: #### H EMDF, PT, BMP3M, PHOS3, MG3, CK3 #### [address] #### VD25H #### [facility] [address] [place] [address] Granulocytes/100 WBC (Bld) 82.1 % High 40.0-80.0 [facility] Comment on above: Performed By: #### H EMDF, PT, BMP3M, PHOS3, MG3, CK3 #### [address] [place] #### VD25H #### [facility] [address] [place] [address] Hematocrit Volume Fraction (Bld) 31.2 % Low 40.0-52.0 [facility] Comment on above: Performed By: #### H EMDF, PT, BMP3M, PHOS3, MG3, CK3 #### [address] #### VD25H #### [facility] [address] [place] [address] Hemoglobin mass conc (Bld) 10.5 g/dL Low 13.0-18.0 [facility] Comment on above: Performed By: #### H EMDF, PT, BMP3M, PHOS3, MG3, CK3 #### [facility] [address] [place] #### VD25H #### [facility] [address] [place] [address] Lymphocytes #/vol (Bld) 1.6 10*3/uL Normal 1.0-4.3 [facility] Comment on above: Performed By: #### H EMDF, PT, BMP3M, PHOS3, MG3, CK3 #### [address] #### VD25H #### [facility] [address] [place] [address] Lymphocytes/100 WBC (Bld) 9.1 % Low 20.0-40.0 [facility] Comment on above: Performed By: #### H EMDF, PT, BMP3M, PHOS3, MG3, CK3 #### [address] #### VD25H #### [facility] [address] [place] [address] MCH Entitic mass (RBC) 28.9 pg Normal 26.0-34.0 [facility] Comment on above: Performed By: #### H EMDF, PT, BMP3M, PHOS3, MG3, CK3 #### [address] [place] #### VD25H #### [facility] [address] [place] [address] MCHC mass conc (RBC) 33.7 % Normal 32.0-36.0 [facility] Comment on above: Performed By: #### H EMDF, PT, BMP3M, PHOS3, MG3, CK3 #### [address] #### VD25H #### [facility] [address] [place] [address] MCV Entitic volume (RBC) 85.5 fL Normal 80.0-98.0 [facility] Comment on above: Performed By: #### H EMDF, PT, BMP3M, PHOS3, MG3, CK3 #### [address] [place] #### VD25H #### [facility] [address] [place] [address] Monocytes #/vol (Bld) 1.0 10*3/uL High 0.0-0.8 [facility] Comment on above: Performed By: #### H EMDF, PT, BMP3M, PHOS3, MG3, CK3 #### [address] #### VD25H #### [facility] [address] [place] [address] Monocytes/100 WBC (Bld) 5.5 % Normal 2.0-10.0 [facility] Comment on above: Performed By: #### H EMDF, PT, BMP3M, PHOS3, MG3, CK3 #### [address] #### VD25H #### [facility] [address] [place] [address] Platelet mean volume Entitic volume (Bld) 8.0 fL Normal 7.4-10.4 [facility] Comment on above: Performed By: #### H EMDF, PT, BMP3M, PHOS3, MG3, CK3 #### [address] #### VD25H #### [facility] [address] [place] [address] Platelets #/vol (Bld) 425 10*3/uL Normal 140-440 [facility] Comment on above: Performed By: #### H EMDF, PT, BMP3M, PHOS3, MG3, CK3 #### [address] #### VD25H #### [facility] [address] [place] [address] RBC #/vol (Bld) 3.65 10*6/uL Low 4.40-5.90 [facility] Comment on above: Performed By: #### H EMDF, PT, BMP3M, PHOS3, MG3, CK3 #### [address] #### VD25H #### [facility] [address] [place] [address] WBC #/vol (Bld) 17.4 10*3/uL High 3.6-10.7 [facility] Comment on above: Performed By: #### H EMDF, PT, BMP3M, PHOS3, MG3, CK3 #### [address] #### VD25H #### [facility] [address] [place] [address] Basic Metabolic Panelon 04-0 Calcium mass conc 8.3 mg/dL Low 8.4-10.4 [facility] Comment on above: Performed By: #### H EMDF, PT, BMP3M, PHOS3, MG3, CK3 #### [address] #### VD25H #### [facility] [address] [place] [address] Glucose mass conc 114 mg/dL High 70-100 [facility] Comment on above: Performed By: #### H EMDF, PT, BMP3M, PHOS3, MG3, CK3 #### [address] #### VD25H #### [facility] [address] [place] [address] Anion gap molar conc 10 Normal [facility] Comment on above: Performed By: #### H EMDF, PT, BMP3M, PHOS3, MG3, CK3 #### [address] [place] #### VD25H #### [facility] [address] [place] [address] CO2 molar conc 34 mmol/L High 22-30 [facility] Comment on above: Performed By: #### H EMDF, PT, BMP3M, PHOS3, MG3, CK3 #### [address] [place] #### VD25H #### [facility] [address] [place] [address] Creatinine mass conc 0.52 mg/dL Normal 0.52-1.25 [facility] Comment on above: Performed By: #### H EMDF, PT, BMP3M, PHOS3, MG3, CK3 #### [address] #### VD25H #### [place] [address] [place] [address] GFR/1.73 sq M predicted among blacks MDRD vol rate/area (S/P/Bld) mL/min/{1.73_m2} Normal >60 [facility] Comment on above: Performed By: #### H EMDF, PT, BMP3M, PHOS3, MG3, CK3 #### [address] #### VD25H #### [facility] [address] [place] [address] GFR/1.73 sq M predicted among non-blacks MDRD vol rate/area (S/P/Bld) mL/min/{1.73_m2} Normal >60 [facility] Comment on above: Result Comment: Sour ce- MDRD equation with creatinine calibration to IDMS(NKDEP) eGFR not recommended for drug dose adjustment Performed By: #### H EMDF, PT, BMP3M, PHOS3, MG3, CK3 #### [address] [address] [place] #### VD25H #### [facility] [address] [place] [address] Urea nitrogen mass conc 23 mg/dL High 7-20 S [facility] Comment on above: Performed By: #### H EMDF, PT, BMP3M, PHOS3, MG3, CK3 #### [facility] [address] [place] #### VD25H #### [facility] [address] [place] [address] Chloride molar conc 95 mmol/L Low 98-107 [facility] Comment on above: Performed By: #### H EMDF, PT, BMP3M, PHOS3, MG3, CK3 #### [address] [place] #### VD25H #### [facility] [address] [place] [address] Potassium molar conc 3.7 mmol/L Normal 3.5-5.1 [facility] Comment on above: Performed By: #### H EMDF, PT, BMP3M, PHOS3, MG3, CK3 #### [address] [place] #### VD25H #### [facility] [address] [place] [address] Sodium molar conc 139 mmol/L Normal 135-145 [facility] Comment on above: Performed By: #### H EMDF, PT, BMP3M, PHOS3, MG3, CK3 #### [address] [place] #### VD25H #### [facility] [address] [place] [address] Hemogram w/ Autodiffon 07-31 Abs Baso Cnt 0.2 10*3/uL Normal 0.0-0.2 [facility] Comment on above: Performed By: #### H EMDF, PT, BMP3M, PHOS3, MG3, CK3 #### [address] [place] #### VD25H #### [facility] [address] [place] [address] Abs Neutrophile Cnt 13.4 10*3/uL High 1.8-7.0 [facility] Comment on above: Performed By: #### H EMDF, PT, BMP3M, PHOS3, MG3, CK3 #### [address] [place] #### VD25H #### [facility] [address] [place] [address] Basophils/100 WBC (Bld) 1.0 % Normal 0.0-2.0 [facility] Comment on above: Performed By: #### H EMDF, PT, BMP3M, PHOS3, MG3, CK3 #### [address] #### VD25H #### [facility] [address] [place] [address] Eosinophils #/vol (Bld) 0.5 10*3/uL Normal 0.0-0.5 [facility] Comment on above: Performed By: #### H EMDF, PT, BMP3M, PHOS3, MG3, CK3 #### [address] #### VD25H #### [facility] [address] [place] [address] Eosinophils/100 WBC (Bld) 3.1 % Normal 1.0-6.0 [facility] Comment on above: Performed By: #### H EMDF, PT, BMP3M, PHOS3, MG3, CK3 #### [address] #### VD25H #### [facility] [address] [place] [address] Erythrocyte distribution width Ratio (RBC) 14.0 % Normal 11.5-14.5 [facility] Comment on above: Performed By: #### H EMDF, PT, BMP3M, PHOS3, MG3, CK3 #### [address] #### VD25H #### [facility] [address] [place] [address] Granulocytes/100 WBC (Bld) 80.6 % High 40.0-80.0 [facility] Comment on above: Performed By: #### H EMDF, PT, BMP3M, PHOS3, MG3, CK3 #### [address] #### VD25H #### [facility] [address] [place] [address] Hematocrit Volume Fraction (Bld) 32.3 % Low 40.0-52.0 [facility] Comment on above: Performed By: #### H EMDF, PT, BMP3M, PHOS3, MG3, CK3 #### [address] #### VD25H #### [facility] [address] [place] [address] Hemoglobin mass conc (Bld) 10.8 g/dL Low 13.0-18.0 [facility] Comment on above: Performed By: #### H EMDF, PT, BMP3M, PHOS3, MG3, CK3 #### [address] #### VD25H #### [facility] [address] [place] [address] Lymphocytes #/vol (Bld) 1.6 10*3/uL Normal 1.0-4.3 [facility] Comment on above: Performed By: #### H EMDF, PT, BMP3M, PHOS3, MG3, CK3 #### [address] #### VD25H #### [facility] [address] [place] [address] Lymphocytes/100 WBC (Bld) 9.8 % Low 20.0-40.0 [facility] Comment on above: Performed By: #### H EMDF, PT, BMP3M, PHOS3, MG3, CK3 #### [address] #### VD25H #### [facility] [address] [address] MCH Entitic mass (RBC) 28.9 pg Normal 26.0-34.0 [facility] Comment on above: Performed By: #### H EMDF, PT, BMP3M, PHOS3, MG3, CK3 #### [address] [place] #### VD25H #### [facility] [address] [place] [address] MCHC mass conc (RBC) 33.6 % Normal 32.0-36.0 [facility] Comment on above: Performed By: #### H EMDF, PT, BMP3M, PHOS3, MG3, CK3 #### [address] #### VD25H #### [facility] [address] [place] [address] MCV Entitic volume (RBC) 86.1 fL Normal 80.0-98.0 [facility] Comment on above: Performed By: #### H EMDF, PT, BMP3M, PHOS3, MG3, CK3 #### [address] [place] #### VD25H #### [facility] [address] [place] [address] Monocytes #/vol (Bld) 0.9 10*3/uL High 0.0-0.8 [facility] Comment on above: Performed By: #### H EMDF, PT, BMP3M, PHOS3, MG3, CK3 #### [address] #### VD25H #### [facility] [address] [place] [address] Monocytes/100 WBC (Bld) 5.5 % Normal 2.0-10.0 [facility] Comment on above: Performed By: #### H EMDF, PT, BMP3M, PHOS3, MG3, CK3 #### [address] [place] #### VD25H #### [facility] [address] [place] [address] Platelet mean volume Entitic volume (Bld) 8.2 fL Normal 7.4-10.4 [facility] Comment on above: Performed By: #### H EMDF, PT, BMP3M, PHOS3, MG3, CK3 #### [address] [place] #### VD25H #### [facility] [address] [place] [address] Platelets #/vol (Bld) 475 10*3/uL High 140-440 [facility] Comment on above: Performed By: #### H EMDF, PT, BMP3M, PHOS3, MG3, CK3 #### [address] #### VD25H #### [facility] [address] [place] [address] RBC #/vol (Bld) 3.75 10*6/uL Low 4.40-5.90 [facility] Comment on above: Performed By: #### H EMDF, PT, BMP3M, PHOS3, MG3, CK3 #### [address] #### VD25H #### [facility] [address] [place] [address] WBC #/vol (Bld) 16.6 10*3/uL High 3.6-10.7 [facility] Comment on above: Performed By: #### H EMDF, PT, BMP3M, PHOS3, MG3, CK3 #### [address] [place] #### VD25H #### [facility] [address] [place] [address] Magnesiumon 07-31-2018 Magnesium mass conc 2.4 mg/dL High 1.6-2.3 [facility] Comment on above: Performed By: #### H EMDF, PT, BMP3M, PHOS3, MG3, CK3 #### [address] [place] #### VD25H #### [facility] [address] [place] [address] Phosphoruson 07-31-2018 Phosphate mass conc 4.5 mg/dL Normal 2.5-4.5 [facility] Comment on above: Performed By: #### H EMDF, PT, BMP3M, PHOS3, MG3, CK3 #### [address] #### VD25H #### [facility] [address] [place] [address] Basic Metabolic Panelon Calcium mass conc 8.6 mg/dL Normal 8.4-10.4 [facility] Comment on above: Performed By: #### H EMDF, PT, BMP3M, PHOS3, MG3, CK3 #### [address], [place] #### VD25H #### [facility] [address] [place] [address] Anion gap molar conc 8 Normal [facility] Comment on above: Performed By: #### H EMDF, PT, BMP3M, PHOS3, MG3, CK3 #### [address] #### VD25H #### [facility] [address] [place] [address] CO2 molar conc 34 mmol/L High 22-30 [facility] Comment on above: Performed By: #### H EMDF, PT, BMP3M, PHOS3, MG3, CK3 #### [address], [place] #### VD25H #### [facility] [address] [place] [address] Creatinine mass conc 0.56 mg/dL Normal 0.52-1.25 [facility] Comment on above: Performed By: #### H EMDF, PT, BMP3M, PHOS3, MG3, CK3 #### [address] #### VD25H #### [facility] [address] [place] [address] GFR/1.73 sq M predicted among blacks MDRD vol rate/area (S/P/Bld) mL/min/{1.73_m2} Normal >60 [facility] Comment on above: Performed By: #### H EMDF, PT, BMP3M, PHOS3, MG3, CK3 #### [address] #### VD25H #### [facility] [address] [place] [address] GFR/1.73 sq M predicted among non-blacks MDRD vol rate/area (S/P/Bld) mL/min/{1.73_m2} Normal >60 [facility] Comment on above: Result Comment: Sour ce- MDRD equation with creatinine calibration to IDMS(NKDEP) eGFR not recommended for drug dose adjustment Performed By: #### H EMDF, PT, BMP3M, PHOS3, MG3, CK3 #### [address] #### VD25H #### [facility] [address] [place] [address] Glucose mass conc 121 mg/dL High 70-100 [facility] Comment on above: Performed By: #### H EMDF, PT, BMP3M, PHOS3, MG3, CK3 #### [address] #### VD25H #### [facility] [address] [place] [address] Urea nitrogen mass conc 29 mg/dL High 7-20 [facility] Comment on above: Performed By: #### H EMDF, PT, BMP3M, PHOS3, MG3, CK3 #### [facility] [address] [place] [address] #### VD25H #### [facility] [address] [place] [address] Chloride molar conc 99 mmol/L Normal 98-107 [facility] Comment on above: Performed By: #### H EMDF, PT, BMP3M, PHOS3, MG3, CK3 #### [facility] [address] [place] [address] #### VD25H #### [facility] [address] [place] [address] Potassium molar conc 3.7 mmol/L Normal 3.5-5.1 [facility] Comment on above: Performed By: #### H EMDF, PT, BMP3M, PHOS3, MG3, CK3 #### [facility] [address] [place] [address] #### VD25H #### [facility] [address] [place] [address] Sodium molar conc 141 mmol/L Normal 135-145 [facility] Comment on above: Performed By: #### H EMDF, PT, BMP3M, PHOS3, MG3, CK3 #### [facility] [address] [place] [address] #### VD25H #### [facility] [address] [place] [address] CR Abdomen APon 07-30-2018 CR Abdomen AP Patient Name: KATHYA HOOPER Diagnostic Radiology Exam Date/Time 07/30/2018 10:28:42 EDT Exam CR Abdomen AP Ordering Physician INDRA JACOBSON Accession Number [id number] CPT4 Codes 24556 () Reason For Exam abd distension Report [...] Transcribed Date and Time: 07/30/2018 3:57 Normal [facility] CR Chest Portableon 07-31-19 19 CR Chest Portable Patient Name: KATHYA HOOPER Diagnostic Radiology Exam Date/Time 07/30/2018 12:28:13 EDT Exam CR Chest Portable Ordering Physician SALO DAVIS Accession Number [id number] CPT4 Codes 39573 () Reason For Exam line reposition Report [...] Transcribed Date and Time: 07/30/2018 1:32 Normal [facility] CR Chest Portable Patient Name: KATHYA HOOPER Diagnostic Radiology Exam Date/Time 07/30/2018 06:40:08 EDT Exam CR Chest Portable Ordering Physician MARIA EUGENIA PEREZ Accession Number [id number] CPT4 Codes 82100 () Reason For Exam ETT placement Report [...] Transcribed Date and Time: 07/30/2018 10:[address] [facility] 07-30-2018 Glucose mass conc 125 mg/dL High 70-[address] [facility] Comment on above: Result Comment: Test performed by glucose meter. Results may be 10%-15% lower than serum/plasma values. (CLIA ID [id number]) Performed By: #### H EMDF, PT, BMP3M, PHOS3, MG3, CK3 #### [facility] [address] [place] [address] #### VD25H #### [facility] [address] [place] [address] Glucose mass conc 117 mg/dL High 70-[address] [facility] Comment on above: Result Comment: Test performed by glucose meter. Results may be 10%-15% lower than serum/plasma values. (CLIA ID [id number]) Performed By: #### H EMDF, PT, BMP3M, PHOS3, MG3, CK3 #### [facility] [address] [place] [address] #### VD25H #### [facility] [address] [place] [address] Glucose mass conc 44 mg/dL Low 70-100 [facility] Comment on above: Result Comment: Repe ated Test; Test performed by glucose meter. Results may be 10%-15% lower than serum/plasma values. (CLIA ID [id number]) Performed By: #### H EMDF, PT, BMP3M, PHOS3, MG3, CK3 #### [address] #### VD25H #### [place] [address] [place] [address] Hemogram w/ Autodiffon 07-30 Abs Baso Cnt 0.2 10*3/uL Normal 0.0-0.2 [facility] Comment on above: Performed By: #### H EMDF, PT, BMP3M, PHOS3, MG3, CK3 #### [address] #### VD25H #### [place] [address] [place] [address] Abs Neutrophile Cnt 13.2 10*3/uL High 1.8-7.0 [facility] Comment on above: Performed By: #### H EMDF, PT, BMP3M, PHOS3, MG3, CK3 #### [address] #### VD25H #### [place] [address] [place] [address] Basophils/100 WBC (Bld) 0.9 % Normal 0.0-2.0 [facility] Comment on above: Performed By: #### H EMDF, PT, BMP3M, PHOS3, MG3, CK3 #### [address] #### VD25H #### [place] [address] [place] [address] Eosinophils #/vol (Bld) 0.5 10*3/uL Normal 0.0-0.5 [facility] Comment on above: Performed By: #### H EMDF, PT, BMP3M, PHOS3, MG3, CK3 #### [facility] [address] [place], [place] #### VD25H #### [facility] [address] [place] [address] Eosinophils/100 WBC (Bld) 2.8 % Normal 1.0-6.0 [facility] Comment on above: Performed By: #### H EMDF, PT, BMP3M, PHOS3, MG3, CK3 #### [address] #### VD25H #### [facility] [address] [place] [address] Erythrocyte distribution width Ratio (RBC) 13.7 % Normal 11.5-14.5 [facility] Comment on above: Performed By: #### H EMDF, PT, BMP3M, PHOS3, MG3, CK3 #### [address] #### VD25H #### [facility] [address] [place] [address] Granulocytes/100 WBC (Bld) 76.6 % Normal 40.0-80.0 [facility] Comment on above: Performed By: #### H EMDF, PT, BMP3M, PHOS3, MG3, CK3 #### [place] [address] [place], [place] #### VD25H #### [facility] [address] [place] [address] Hematocrit Volume Fraction (Bld) 31.4 % Low 40.0-52.0 [facility] Comment on above: Performed By: #### H EMDF, PT, BMP3M, PHOS3, MG3, CK3 #### [address] #### VD25H #### [facility] [address] [place] [address] Hemoglobin mass conc (Bld) 10.6 g/dL Low 13.0-18.0 [facility] Comment on above: Performed By: #### H EMDF, PT, BMP3M, PHOS3, MG3, CK3 #### [address] #### VD25H #### [facility] [address] [place] [address] Lymphocytes #/vol (Bld) 2.2 10*3/uL Normal 1.0-4.3 [facility] Comment on above: Performed By: #### H EMDF, PT, BMP3M, PHOS3, MG3, CK3 #### [address] #### VD25H #### [place] [address] [place] [place] [address] Lymphocytes/100 WBC (Bld) 12.9 % Low 20.0-40.0 [facility] Comment on above: Performed By: #### H EMDF, PT, BMP3M, PHOS3, MG3, CK3 #### [address] #### VD25H #### [facility] [address] [place] [address] MCH Entitic mass (RBC) 29.2 pg Normal 26.0-34.0 [facility] Comment on above: Performed By: #### H EMDF, PT, BMP3M, PHOS3, MG3, CK3 #### [address] #### VD25H #### [facility] [address] [place] [address] MCHC mass conc (RBC) 33.8 % Normal 32.0-36.0 [facility] Comment on above: Performed By: #### H EMDF, PT, BMP3M, PHOS3, MG3, CK3 #### [address] #### VD25H #### [facility] [address] [place] [address] MCV Entitic volume (RBC) 86.4 fL Normal 80.0-98.0 [facility] Comment on above: Performed By: #### H EMDF, PT, BMP3M, PHOS3, MG3, CK3 #### [place] [address] [address] [place] #### VD25H #### [facility] [address] [place] [address] Monocytes #/vol (Bld) 1.2 10*3/uL High 0.0-0.8 [facility] Comment on above: Performed By: #### H EMDF, PT, BMP3M, PHOS3, MG3, CK3 #### [address] #### VD25H #### [place] [address] [place] [address] Monocytes/100 WBC (Bld) 6.8 % Normal 2.0-10.0 [facility] Comment on above: Performed By: #### H EMDF, PT, BMP3M, PHOS3, MG3, CK3 #### [address] #### VD25H #### [facility] [address] [place] [address] Platelet mean volume Entitic volume (Bld) 8.1 fL Normal 7.4-10.4 [facility] Comment on above: Performed By: #### H EMDF, PT, BMP3M, PHOS3, MG3, CK3 #### [address] #### VD25H #### [facility] [address] [place] [address] Platelets #/vol (Bld) 507 10*3/uL High 140-440 [facility] Comment on above: Performed By: #### H EMDF, PT, BMP3M, PHOS3, MG3, CK3 #### [address] #### VD25H #### [facility] [address] [place] [address] RBC #/vol (Bld) 3.64 10*6/uL Low 4.40-5.90 [facility] Comment on above: Performed By: #### H EMDF, PT, BMP3M, PHOS3, MG3, CK3 #### [place] [address] [place], [place] #### VD25H #### [facility] [address] [place] [address] WBC #/vol (Bld) 17.2 10*3/uL High 3.6-10.7 [facility] Comment on above: Performed By: #### H EMDF, PT, BMP3M, PHOS3, MG3, CK3 #### [address] #### VD25H #### [facility] [employer] [place] [address] [place] [address] Magnesiumon 07-30-2018 Magnesium mass conc 2.5 mg/dL High 1.6-2.3 [facility] [employer] Comment on above: Performed By: #### H EMDF, PT, BMP3M, PHOS3, MG3, CK3 #### [address] #### VD25H #### [address] [place] [address] Phosphoruson 07-30-2018 Phosphate mass conc 4.5 mg/dL Normal 2.5-4.5 [facility] [employer] Comment on above: Performed By: #### H EMDF, PT, BMP3M, PHOS3, MG3, CK3 #### [address] #### VD25H #### [place] [address] [place] [address] VL Venous Duplex US Lower Ex t Bilateralon 07-30-2018 VL Venous Duplex US Lower Ext Bilateral Patient Name: KATHYA HOOPER Ultrasound Exam Date/Time 07/30/2018 12:27:47 EDT Exam VL Venous Duplex US Lower Ext Bilateral Ordering Physician ETIENNE MARTÍNEZ JULIE Accession Number [id number] CPT4 Codes 00060 () Reason For Exam edema Report [facility]ASC[facility] --- Lower Extremity Venous Duplex Report Patient Name: Kathya Hooper : 1955 Study Date: 07/30/2018 W (63yrs) Age: 63 Account: [id number] Gender: M Loc: T209 BP: Ordering: Yesenia Martínez Technologist: Ordering Physician: Yesenia Martínez Human Service Worker: Barbara Suarez RDMS, [facility] Interpreting Physician: Krysta Arora --- Location: [facility] --- INDICATIONS: Edema. --- CONCLUSIONS 1. Normal [...] performed. The images were obtained using a [employer] E9 vascular ultrasound machine. --- VENOUS FLOW [...] ---------+-------+--- --+ Electronically signed by: Krysta Arora [id number] Final Dictated: 07/30/2018 1:30 pm Dictating Physician: KRYSTA ARORA Signed Date and Time: 07/30/2018 1:29 pm Signed by: KRYSTA ARORA Normal [facility] Arterial Blood Gaseson 07-29 CO2 molar conc 34.4 mmol/L High 23.0-27.0 [facility] Comment on above: Performed By: #### H EMDF, PT, BMP3M, PHOS3, MG3, CK3 #### [facility] [employer] [facility] [address] [place] [address] #### VD25H #### [facility] [address] [place] [address] HCO3 molar conc (Bld) 33.0 mmol/L High 21.0-25.0 [facility] Comment on above: Performed By: #### H EMDF, PT, BMP3M, PHOS3, MG3, CK3 #### [facility] [address], [place] #### VD25H #### [facility] [address] [place] [address] Hemoglobin mass conc (Bld) 11.5 g/dL Normal ScreenOnly [facility] Comment on above: Performed By: #### H EMDF, PT, BMP3M, PHOS3, MG3, CK3 #### [facility] [address] [place], [place] #### VD25H #### [facility] [address] [place] [address] Oxygen ppres (Bld) 84.2 mm[Hg] Normal 80.0-100.0 [facility] Comment on above: Performed By: #### H EMDF, PT, BMP3M, PHOS3, MG3, CK3 #### [place] [address] [address] [place], [place] #### VD25H #### [facility] [address] [place] [address] Oxygen saturation in Blood 96.2 % Normal 95.0-100.0 [facility] Comment on above: Performed By: #### H EMDF, PT, BMP3M, PHOS3, MG3, CK3 #### [place] [address] [address] [place] #### VD25H #### [facility] [address] [place] [address] pCO2 46.8 mm[Hg] High 35.0-45.0 [facility] Comment on above: Performed By: #### H EMDF, PT, BMP3M, PHOS3, MG3, CK3 #### [place] [address] [address] [place] #### VD25H #### [facility] [address] [place] [address] pH (Bld) 7.466 High 7.350-7.450 [facility] Comment on above: Performed By: #### H EMDF, PT, BMP3M, PHOS3, MG3, CK3 #### [place] [address] [address] [place] #### VD25H #### [facility] [address] [place] [address] Std Base Excess 8.2 mmol/L High -3.0-3.0 [facility] Comment on above: Performed By: #### H EMDF, PT, BMP3M, PHOS3, MG3, CK3 #### [place] [address] [address] [facility] #### VD25H #### [facility] [address] [place] [address] FIO2 .30 Normal [facility] Comment on above: Performed By: #### H EMDF, PT, BMP3M, PHOS3, MG3, CK3 #### [place] [address] [address] [facility] #### VD25H #### [facility] [address] [place] [address] Basic Metabolic Panelon 03-3 Calcium mass conc 8.5 mg/dL Normal 8.4-10.4 [facility] Comment on above: Performed By: #### H EMDF, PT, BMP3M, PHOS3, MG3, CK3 #### [place] [address] [address] [facility] #### VD25H #### [facility] [address] [place] [address] Glucose mass conc 163 mg/dL High 70-100 [facility] Comment on above: Performed By: #### H EMDF, PT, BMP3M, PHOS3, MG3, CK3 #### [place] [address] [address] [facility] #### VD25H #### [facility] [address] [place] [address] Anion gap molar conc 10 Normal [facility] Comment on above: Performed By: #### H EMDF, PT, BMP3M, PHOS3, MG3, CK3 #### [place] [address] [address] [facility] #### VD25H #### [facility] [address] [place] [address] CO2 molar conc 37 mmol/L High 22-30 [facility] Comment on above: Performed By: #### H EMDF, PT, BMP3M, PHOS3, MG3, CK3 #### [facility] [address], [place] #### VD25H #### [facility] [address] [place] [address] Creatinine mass conc 0.57 mg/dL Normal 0.52-1.25 [facility] Comment on above: Performed By: #### H EMDF, PT, BMP3M, PHOS3, MG3, CK3 #### [address] #### VD25H #### [facility] [address] [place] [address] GFR/1.73 sq M predicted among blacks MDRD vol rate/area (S/P/Bld) mL/min/{1.73_m2} Normal >60 [facility] Comment on above: Performed By: #### H EMDF, PT, BMP3M, PHOS3, MG3, CK3 #### [address] #### VD25H #### [facility] [address] [place] [address] GFR/1.73 sq M predicted among non-blacks MDRD vol rate/area (S/P/Bld) mL/min/{1.73_m2} Normal >60 [facility] Comment on above: Result Comment: Sour ce- MDRD equation with creatinine calibration to IDMS(NKDEP) eGFR not recommended for drug dose adjustment Performed By: #### H EMDF, PT, BMP3M, PHOS3, MG3, CK3 #### [address] #### VD25H #### [facility] [address] [place] [address] Urea nitrogen mass conc 30 mg/dL High 7-20 [facility] Comment on above: Performed By: #### H EMDF, PT, BMP3M, PHOS3, MG3, CK3 #### [facility] [address] [place] [address] #### VD25H #### [facility] [address] [place] [address] Chloride molar conc 95 mmol/L Low 98-107 [facility] Comment on above: Performed By: #### H EMDF, PT, BMP3M, PHOS3, MG3, CK3 #### [facility] [address] [place] [address] #### VD25H #### [facility] [address] [place] [address] Potassium molar conc 3.3 mmol/L Low 3.5-5.1 [facility] Comment on above: Performed By: #### H EMDF, PT, BMP3M, PHOS3, MG3, CK3 #### [facility] [address] [place] #### VD25H #### [facility] [address] [place] [address] Sodium molar conc 141 mmol/L Normal 135-145 [facility] Comment on above: Performed By: #### H EMDF, PT, BMP3M, PHOS3, MG3, CK3 #### [facility] [address] [place] [address] #### VD25H #### [facility] [address] [place] [address] CR Chest Portableon 07-30-19 19 CR Chest Portable Patient Name: KATHYA HOOPER Diagnostic Radiology Exam Date/Time 07/29/2018 07:01:44 EDT Exam CR Chest Portable Ordering Physician MARIA EUGENIA PEREZ Accession Number [id number] CPT4 Codes 46670 () Reason For Exam ETT placement Report [...] Transcribed Date and Time: 07/29/2018 9:04 Normal [place] Glucose,Bedsideon 07-29-2018 Glucose mass conc 124 mg/dL High 70-100 [facility] Comment on above: Result Comment: Test performed by glucose meter. Results may be 10%-15% lower than serum/plasma values. (CLIA ID [id number]) Performed By: #### H EMDF, PT, BMP3M, PHOS3, MG3, CK3 #### [facility] [address] [place] [address] #### VD25H #### [facility] [address] [place] [address] Glucose mass conc 175 mg/dL High 70-[address] [facility] Comment on above: Result Comment: Test performed by glucose meter. Results may be 10%-15% lower than serum/plasma values. (CLIA ID [id number]) Performed By: #### H EMDF, PT, BMP3M, PHOS3, MG3, CK3 #### [facility] [address] [place] [address] #### VD25H #### [facility] [address] [place] [address] Glucose mass conc 138 mg/dL High 70-[address] [facility] Comment on above: Result Comment: Test performed by glucose meter. Results may be 10%-15% lower than serum/plasma values. (CLIA ID [id number]) Performed By: #### H EMDF, PT, BMP3M, PHOS3, MG3, CK3 #### [address] #### VD25H #### [facility] [address] [place] [address] Glucose mass conc 147 mg/dL High 70-100 [facility] Comment on above: Result Comment: Test performed by glucose meter. Results may be 10%-15% lower than serum/plasma values. (CLIA ID [id number]) Performed By: #### H EMDF, PT, BMP3M, PHOS3, MG3, CK3 #### [address] #### VD25H #### [facility] [address] [place] [address] Hemogram w/ Autodiffon 07-29 Erythrocyte distribution width Ratio (RBC) 13.8 % Normal 11.5-14.5 [facility] Comment on above: Performed By: #### H EMDF, PT, BMP3M, PHOS3, MG3, CK3 #### [address] #### VD25H #### [facility] [address] [place] [address] Hematocrit Volume Fraction (Bld) 32.9 % Low 40.0-52.0 [facility] Comment on above: Performed By: #### H EMDF, PT, BMP3M, PHOS3, MG3, CK3 #### [address] #### VD25H #### [facility] [address] [place] [address] Hemoglobin mass conc (Bld) 11.0 g/dL Low 13.0-18.0 [facility] Comment on above: Performed By: #### H EMDF, PT, BMP3M, PHOS3, MG3, CK3 #### [address] #### VD25H #### [facility] [address] [facility] [place] [address] MCH Entitic mass (RBC) 29.0 pg Normal 26.0-34.0 [facility] Comment on above: Performed By: #### H EMDF, PT, BMP3M, PHOS3, MG3, CK3 #### [facility] [address] [place] #### VD25H #### [facility] [address] [place] [address] MCHC mass conc (RBC) 33.6 % Normal 32.0-36.0 [facility] Comment on above: Performed By: #### H EMDF, PT, BMP3M, PHOS3, MG3, CK3 #### [place] [address] [address] [place] #### VD25H #### [facility] [address] [place] [address] MCV Entitic volume (RBC) 86.3 fL Normal 80.0-98.0 [facility] Comment on above: Performed By: #### H EMDF, PT, BMP3M, PHOS3, MG3, CK3 #### [address] #### VD25H #### [facility] [address] [place] [address] Platelet mean volume Entitic volume (Bld) 8.1 fL Normal 7.4-10.4 [facility] Comment on above: Performed By: #### H EMDF, PT, BMP3M, PHOS3, MG3, CK3 #### [place] [address] [address] [place] #### VD25H #### [facility] [address] [place] [address] Platelets #/vol (Bld) 501 10*3/uL High 140-440 [facility] Comment on above: Performed By: #### H EMDF, PT, BMP3M, PHOS3, MG3, CK3 #### [address] #### VD25H #### [facility] [address] [place] [address] RBC #/vol (Bld) 3.81 10*6/uL Low 4.40-5.90 [facility] Comment on above: Performed By: #### H EMDF, PT, BMP3M, PHOS3, MG3, CK3 #### [address] #### VD25H #### [facility] [address] [place] [address] WBC #/vol (Bld) 20.8 10*3/uL High 3.6-10.7 [facility] Comment on above: Performed By: #### H EMDF, PT, BMP3M, PHOS3, MG3, CK3 #### [address] #### VD25H #### [facility] [address] [place] [address] Magnesiumon 07-29-2018 Magnesium mass conc 2.5 mg/dL High 1.6-2.3 [facility] Comment on above: Performed By: #### H EMDF, PT, BMP3M, PHOS3, MG3, CK3 #### [address] #### VD25H #### [facility] [address] [place] [address] Manual Diffon 07-29-2018 Abs Neutrophile Cnt 17.3 10*3/uL High 2.2-8.2 [facility] Comment on above: Performed By: #### H EMDF, PT, BMP3M, PHOS3, MG3, CK3 #### [address] #### VD25H #### [facility] [address] [place] [address] Bands 1 % Normal 0-3 [facility] Comment on above: Performed By: #### H EMDF, PT, BMP3M, PHOS3, MG3, CK3 #### [address] #### VD25H #### [facility] [address] [place] [address] Eosinophils #/vol (Bld) 0.6 10*3/uL High 0.0-0.5 [facility] Comment on above: Performed By: #### H EMDF, PT, BMP3M, PHOS3, MG3, CK3 #### [facility] [address] [place] #### VD25H #### [facility] [address] [place] [address] Eosinophils/100 WBC (Bld) 3 % Normal 1-6 [facility] Comment on above: Performed By: #### H EMDF, PT, BMP3M, PHOS3, MG3, CK3 #### [address] #### VD25H #### [facility] [address] [place] [address] Lymphocytes #/vol (Bld) 2.3 10*3/uL Normal 1.1-4.5 [facility] Comment on above: Performed By: #### H EMDF, PT, BMP3M, PHOS3, MG3, CK3 #### [place] [address] [place], [place] #### VD25H #### [facility] [address] [place] [address] Lymphocytes/100 WBC (Bld) 11 % Low 20-40 [facility] Comment on above: Performed By: #### H EMDF, PT, BMP3M, PHOS3, MG3, CK3 #### [address] #### VD25H #### [facility] [address] [place] [address] Metamyelocytes 1 % Abnormal <1 [facility] Comment on above: Performed By: #### H EMDF, PT, BMP3M, PHOS3, MG3, CK3 #### [address] #### VD25H #### [facility] [address] [place] [address] Monocytes #/vol (Bld) 0.4 10*3/uL Normal 0.2-1.1 [facility] Comment on above: Performed By: #### H EMDF, PT, BMP3M, PHOS3, MG3, CK3 #### [place] [address] [place] #### VD25H #### [facility] [address] [place] [address] Monocytes/100 WBC (Bld) 2 % Normal 2-10 [facility] Comment on above: Performed By: #### H EMDF, PT, BMP3M, PHOS3, MG3, CK3 #### [address] [place] #### VD25H #### [place] [address] [place] [address] RBC morphology finding Nom (Bld) See Prev Normal [facility] Comment on above: Performed By: #### H EMDF, PT, BMP3M, PHOS3, MG3, CK3 #### [place] [address] [address] [place] #### VD25H #### [place] [address] [place] [address] Seg Neutrophils 82 % High 40-80 [facility] Comment on above: Performed By: #### H EMDF, PT, BMP3M, PHOS3, MG3, CK3 #### [place] [address] [address] [place] #### VD25H #### [facility] [address] [place] [address] Abs Baso Cnt 0.0 10*3/uL Normal 0.0-0.2 [facility] Comment on above: Performed By: #### H EMDF, PT, BMP3M, PHOS3, MG3, CK3 #### [place] [address] [place] #### VD25H #### [facility] [address] [place] [address] Basophils/100 WBC (Bld) 0 % Normal 0-2 [facility] Comment on above: Performed By: #### H EMDF, PT, BMP3M, PHOS3, MG3, CK3 #### [address] #### VD25H #### [facility] [address] [place] [address] Cells counted 100 Normal [facility] Comment on above: Performed By: #### H EMDF, PT, BMP3M, PHOS3, MG3, CK3 #### [address] #### VD25H #### [place] [address] [place] [address] Phosphoruson 07-29-2018 Phosphate mass conc 4.2 mg/dL Normal 2.5-4.5 [facility] Comment on above: Performed By: #### H EMDF, PT, BMP3M, PHOS3, MG3, CK3 #### [address] #### VD25H #### [place] [address] [place] [address] Procalcitoninon 07-29-2018 Protein mass conc 0.11 ng/mL Abnormal <0.10 [facility] Comment on above: Performed By: #### H EMDF, PT, BMP3M, PHOS3, MG3, CK3 #### [address] #### VD25H #### [place] [address] [place] [address] Interpretation See Below Normal [facility] Comment on above: Result Comment: PCT <0.50 = Low risk of severe sepsis and/or septic shock. PCT >2.00 = High risk of severe sepsis and/or septic shock. Performed By: #### H EMDF, PT, BMP3M, PHOS3, MG3, CK3 #### [address] [place], [place] #### VD25H #### [facility] [address] [place] [address] Vancomycin Troughon 07-30-19 Vancomycin Trough 12.2 ug/mL Low 15.0-20.0 [facility] Comment on above: Result Comment: . Performed By: #### H EMDF, PT, BMP3M, PHOS3, MG3, CK3 #### [place] [address] [place] #### VD25H #### [facility] [address] [place] [address] Basic Metabolic Panelon 07-01 Calcium mass conc 8.6 mg/dL Normal 8.4-10.4 [facility] Comment on above: Performed By: #### H EMDF, PT, BMP3M, PHOS3, MG3, CK3 #### [address] #### VD25H #### [facility] [address] [place] [address] Glucose mass conc 158 mg/dL High 70-100 [facility] Comment on above: Performed By: #### H EMDF, PT, BMP3M, PHOS3, MG3, CK3 #### [address] #### VD25H #### [facility] [address] [place] [address] Urea nitrogen mass conc 29 mg/dL High 7-20 S [facility] Comment on above: Performed By: #### H EMDF, PT, BMP3M, PHOS3, MG3, CK3 #### [address] #### VD25H #### [facility] [address] [place] [address] Anion gap molar conc 9 Normal [facility] Comment on above: Performed By: #### H EMDF, PT, BMP3M, PHOS3, MG3, CK3 #### [place] [address] [place] #### VD25H #### [facility] [address] [place] [address] CO2 molar conc 32 mmol/L High 22-30 [facility] Comment on above: Performed By: #### H EMDF, PT, BMP3M, PHOS3, MG3, CK3 #### [place] [address] [place] #### VD25H #### [facility] [address] [place] [address] Creatinine mass conc 0.61 mg/dL Normal 0.52-1.25 [facility] Comment on above: Performed By: #### H EMDF, PT, BMP3M, PHOS3, MG3, CK3 #### [address] #### VD25H #### [place] [address] [place] [address] GFR/1.73 sq M predicted among blacks MDRD vol rate/area (S/P/Bld) mL/min/{1.73_m2} Normal >60 [facility] Comment on above: Performed By: #### H EMDF, PT, BMP3M, PHOS3, MG3, CK3 #### [address] #### VD25H #### [facility] [address] [place] [address] GFR/1.73 sq M predicted among non-blacks MDRD vol rate/area (S/P/Bld) mL/min/{1.73_m2} Normal >60 [facility] Comment on above: Result Comment: Sour ce- MDRD equation with creatinine calibration to IDMS(NKDEP) eGFR not recommended for drug dose adjustment Performed By: #### H EMDF, PT, BMP3M, PHOS3, MG3, CK3 #### [place] [address] [place], [place] #### VD25H #### [place] [address] [place] [address] Potassium molar conc 3.6 mmol/L Normal 3.5-5.1 [facility] Comment on above: Performed By: #### H EMDF, PT, BMP3M, PHOS3, MG3, CK3 #### [facility] [address] [place] [address] #### VD25H #### [facility] [address] [place] [address] Chloride molar conc 100 mmol/L Normal 98-107 [facility] Comment on above: Performed By: #### H EMDF, PT, BMP3M, PHOS3, MG3, CK3 #### [facility] [address] [place] [address] #### VD25H #### [facility] [address] [place] [address] Sodium molar conc 141 mmol/L Normal 135-145 [facility] Comment on above: Performed By: #### H EMDF, PT, BMP3M, PHOS3, MG3, CK3 #### [facility] [address] [place] [address] #### VD25H #### [facility] [address] [place] [address] CR Chest Portableon 07-29-19 19 CR Chest Portable Patient Name: KATHYA HOOPER Diagnostic Radiology Exam Date/Time 07/28/2018 07:09:40 EDT Exam CR Chest Portable Ordering Physician MARIA EUGENIA PEREZ Accession Number [id number] CPT4 Codes 91609 () Reason For Exam ETT placement Report [...] Transcribed Date and Time: 07/28/2018 7:16 Normal [facility] Glucose,Bedsideon 07-28-2018 Glucose mass conc 149 mg/dL High 70-100 [facility] Comment on above: Result Comment: Test performed by glucose meter. Results may be 10%-15% lower than serum/plasma values. (CLIA ID [id number]) Performed By: #### H EMDF, PT, BMP3M, PHOS3, MG3, CK3 #### [facility] [employer] [place] [address] [place], [place] #### VD25H #### [facility] [employer] [facility] [address] [place] [address] Glucose mass conc 142 mg/dL High 70-100 [facility] Comment on above: Result Comment: Test performed by glucose meter. Results may be 10%-15% lower than serum/plasma values. (CLIA ID [id number]) Performed By: #### H EMDF, PT, BMP3M, PHOS3, MG3, CK3 #### [facility] [employer] [facility] [address] [place], [place] #### VD25H #### [facility] [employer] [facility] [address] [place] [address] Hemogram w/ Autodiffon 07-28 Erythrocyte distribution width Ratio (RBC) 13.8 % Normal 11.5-14.5 [facility] Comment on above: Performed By: #### H EMDF, PT, BMP3M, PHOS3, MG3, CK3 #### [facility] [employer] [facility] [address] [place], [place] #### VD25H #### [facility] [address] [place] [address] Hematocrit Volume Fraction (Bld) 33.0 % Low 40.0-52.0 [facility] Comment on above: Performed By: #### H EMDF, PT, BMP3M, PHOS3, MG3, CK3 #### [address] [place], [place] #### VD25H #### [facility] [address] [place] [address] Hemoglobin mass conc (Bld) 11.0 g/dL Low 13.0-18.0 [facility] Comment on above: Performed By: #### H EMDF, PT, BMP3M, PHOS3, MG3, CK3 #### [address] #### VD25H #### [facility] [address] [place] [address] MCH Entitic mass (RBC) 28.7 pg Normal 26.0-34.0 [facility] Comment on above: Performed By: #### H EMDF, PT, BMP3M, PHOS3, MG3, CK3 #### [address] #### VD25H #### [facility] [address] [place] [address] MCHC mass conc (RBC) 33.4 % Normal 32.0-36.0 [facility] Comment on above: Performed By: #### H EMDF, PT, BMP3M, PHOS3, MG3, CK3 #### [address] #### VD25H #### [facility] [address] [place] [address] MCV Entitic volume (RBC) 86.0 fL Normal 80.0-98.0 [facility] Comment on above: Performed By: #### H EMDF, PT, BMP3M, PHOS3, MG3, CK3 #### [address] #### VD25H #### [facility] [address] [place] [address] Platelet mean volume Entitic volume (Bld) 8.4 fL Normal 7.4-10.4 [facility] Comment on above: Performed By: #### H EMDF, PT, BMP3M, PHOS3, MG3, CK3 #### [facility] [address] [place] #### VD25H #### [facility] [address] [place] [address] Platelets #/vol (Bld) 477 10*3/uL High 140-440 [facility] Comment on above: Performed By: #### H EMDF, PT, BMP3M, PHOS3, MG3, CK3 #### [place] [address] [place], [place] #### VD25H #### [facility] [address] [place] [address] RBC #/vol (Bld) 3.84 10*6/uL Low 4.40-5.90 [facility] Comment on above: Performed By: #### H EMDF, PT, BMP3M, PHOS3, MG3, CK3 #### [address] [place], [place] #### VD25H #### [facility] [address] [place] [address] WBC #/vol (Bld) 18.1 10*3/uL High 3.6-10.7 [facility] Comment on above: Performed By: #### H EMDF, PT, BMP3M, PHOS3, MG3, CK3 #### [facility] [address] [place] #### VD25H #### [facility] [address] [place] [address] Magnesiumon 07-28-2018 Magnesium mass conc 2.4 mg/dL High 1.6-2.3 [facility] Comment on above: Performed By: #### H EMDF, PT, BMP3M, PHOS3, MG3, CK3 #### [place] [address] [place], [place] #### VD25H #### [facility] [address] [place] [address] Manual Diffon 07-28-2018 Abs Neutrophile Cnt 14.8 10*3/uL High 2.2-8.2 [facility] Comment on above: Performed By: #### H EMDF, PT, BMP3M, PHOS3, MG3, CK3 #### [place] [address] [address] [place] #### VD25H #### [facility] [address] [place] [address] Anisocytosis Ql (Bld) Slight Normal [facility] Comment on above: Performed By: #### H EMDF, PT, BMP3M, PHOS3, MG3, CK3 #### [address] [place], [place] #### VD25H #### [place] [address] [place] [address] Hypochromia Slight Normal [facility] Comment on above: Performed By: #### H EMDF, PT, BMP3M, PHOS3, MG3, CK3 #### [address] #### VD25H #### [facility] [address] [place] [address] Lymphocytes #/vol (Bld) 1.3 10*3/uL Normal 1.1-4.5 [facility] Comment on above: Performed By: #### H EMDF, PT, BMP3M, PHOS3, MG3, CK3 #### [place] [address] [address] [place] #### VD25H #### [facility] [address] [place] [address] Lymphocytes/100 WBC (Bld) 7 % Low 20-40 [facility] Comment on above: Performed By: #### H EMDF, PT, BMP3M, PHOS3, MG3, CK3 #### [place] [address] [place], [place] #### VD25H #### [facility] [address] [place] [address] Microcytosis Slight Normal [facility] Comment on above: Performed By: #### H EMDF, PT, BMP3M, PHOS3, MG3, CK3 #### [place] [address] [address] [place] #### VD25H #### [facility] [address] [place] [address] Monocytes #/vol (Bld) 2.0 10*3/uL High 0.2-1.1 [facility] Comment on above: Performed By: #### H EMDF, PT, BMP3M, PHOS3, MG3, CK3 #### [address] #### VD25H #### [facility] [address] [place] [address] Monocytes/100 WBC (Bld) 11 % High 2-10 [facility] Comment on above: Performed By: #### H EMDF, PT, BMP3M, PHOS3, MG3, CK3 #### [place] [address] [place], [place] #### VD25H #### [facility] [address] [place] [address] RBC morphology finding Nom (Bld) ABNORMAL Normal [facility] Comment on above: Performed By: #### H EMDF, PT, BMP3M, PHOS3, MG3, CK3 #### [place] [address] [place], [place] #### VD25H #### [facility] [address] [place] [address] Seg Neutrophils 82 % High 40-80 [facility] Comment on above: Performed By: #### H EMDF, PT, BMP3M, PHOS3, MG3, CK3 #### [address] #### VD25H #### [facility] [address] [place] [address] Abs Baso Cnt 0.0 10*3/uL Normal 0.0-0.2 [facility] Comment on above: Performed By: #### H EMDF, PT, BMP3M, PHOS3, MG3, CK3 #### [facility] [address] [place], [place] #### VD25H #### [facility] [address] [place] [address] Bands 0 % Normal 0-3 [facility] Comment on above: Performed By: #### H EMDF, PT, BMP3M, PHOS3, MG3, CK3 #### [facility] [address] [place] #### VD25H #### [facility] [address] [place] [address] Basophils/100 WBC (Bld) 0 % Normal 0-2 [facility] Comment on above: Performed By: #### H EMDF, PT, BMP3M, PHOS3, MG3, CK3 #### [place] [address] [address] [place] #### VD25H #### [facility] [address] [place] [address] Cells counted 100 Normal [facility] Comment on above: Performed By: #### H EMDF, PT, BMP3M, PHOS3, MG3, CK3 #### [facility] [address] [place] #### VD25H #### [facility] [address] [place] [address] Eosinophils #/vol (Bld) 0.0 10*3/uL Normal 0.0-0.5 [facility] Comment on above: Performed By: #### H EMDF, PT, BMP3M, PHOS3, MG3, CK3 #### [place] [address] [address] [place] #### VD25H #### [facility] [address] [place] [address] Eosinophils/100 WBC (Bld) 0 % Low 1-6 [facility] Comment on above: Performed By: #### H EMDF, PT, BMP3M, PHOS3, MG3, CK3 #### [address] [place] #### VD25H #### [facility] [address] [place] [address] Phosphoruson 07-28-2018 Phosphate mass conc 4.4 mg/dL Normal 2.5-4.5 [facility] Comment on above: Performed By: #### H EMDF, PT, BMP3M, PHOS3, MG3, CK3 #### [address] #### VD25H #### [facility] [address] [place] [address] Vancomycin Troughon 07-29-19 19 Vancomycin Trough 12.9 ug/mL Low 15.0-20.0 [facility] Comment on above: Result Comment: . Performed By: #### H EMDF, PT, BMP3M, PHOS3, MG3, CK3 #### [address] #### VD25H #### [place] [address] [place] [address] Arterial Blood Gaseson 07-27 CO2 molar conc 28.4 mmol/L High 23.0-27.0 [facility] Comment on above: Performed By: #### H EMDF, PT, BMP3M, PHOS3, MG3, CK3 #### [address] #### VD25H #### [facility] [address] [place] [address] HCO3 molar conc (Bld) 27.2 mmol/L High 21.0-25.0 [facility] Comment on above: Performed By: #### H EMDF, PT, BMP3M, PHOS3, MG3, CK3 #### [address] #### VD25H #### [facility] [address] [place] [address] Hemoglobin mass conc (Bld) 11.7 g/dL Normal ScreenOnly [facility] Comment on above: Performed By: #### H EMDF, PT, BMP3M, PHOS3, MG3, CK3 #### [facility] [address] [place] #### VD25H #### [facility] [address] [place] [address] Oxygen ppres (Bld) 91.3 mm[Hg] Normal 80.0-100.0 [facility] Comment on above: Performed By: #### H EMDF, PT, BMP3M, PHOS3, MG3, CK3 #### [place] [address] [address] [place] #### VD25H #### [facility] [address] [place] [address] Oxygen saturation in Blood 96.9 % Normal 95.0-100.0 [facility] Comment on above: Performed By: #### H EMDF, PT, BMP3M, PHOS3, MG3, CK3 #### [facility] [address] [place] #### VD25H #### [facility] [address] [place] [address] pCO2 39.0 mm[Hg] Normal 35.0-45.0 [facility] Comment on above: Performed By: #### H EMDF, PT, BMP3M, PHOS3, MG3, CK3 #### [facility] [address] [place] #### VD25H #### [facility] [address] [place] [address] pH (Bld) 7.461 High 7.350-7.450 [facility] Comment on above: Performed By: #### H EMDF, PT, BMP3M, PHOS3, MG3, CK3 #### [facility] [address] [place] #### VD25H #### [facility] [address] [place] [address] Std Base Excess 3.2 mmol/L High -3.0-3.0 [facility] Comment on above: Performed By: #### H EMDF, PT, BMP3M, PHOS3, MG3, CK3 #### [place] [address] [address] [place] #### VD25H #### [facility] [address] [place] [address] FIO2 No data Normal [facility] Comment on above: Performed By: #### H EMDF, PT, BMP3M, PHOS3, MG3, CK3 #### [place] [address] [address] [place] #### VD25H #### [facility] [address] [place] [address] Basic Metabolic Panelon -2 Anion gap molar conc 12 Normal [facility] Comment on above: Performed By: #### H EMDF, PT, BMP3M, PHOS3, MG3, CK3 #### [place] [address] [address] [place] #### VD25H #### [facility] [address] [place] [address] Calcium mass conc 8.3 mg/dL Low 8.4-10.4 [facility] Comment on above: Performed By: #### H EMDF, PT, BMP3M, PHOS3, MG3, CK3 #### [place] [address] [address] [place] #### VD25H #### [facility] [address] [place] [address] CO2 molar conc 28 mmol/L Normal 22-30 [facility] Comment on above: Performed By: #### H EMDF, PT, BMP3M, PHOS3, MG3, CK3 #### [place] [address] [address] [place] #### VD25H #### [facility] [address] [place] [address] Glucose mass conc 156 mg/dL High 70-100 [facility] Comment on above: Performed By: #### H EMDF, PT, BMP3M, PHOS3, MG3, CK3 #### [address] [address] #### VD25H #### [facility] [address] [place] [address] Urea nitrogen mass conc 21 mg/dL High 7-20 [facility] Comment on above: Performed By: #### H EMDF, PT, BMP3M, PHOS3, MG3, CK3 #### [address] [address] #### VD25H #### [facility] [address] [place] [address] Creatinine mass conc 0.53 mg/dL Normal 0.52-1.25 [facility] Comment on above: Performed By: #### H EMDF, PT, BMP3M, PHOS3, MG3, CK3 #### [address] [address] #### VD25H #### [facility] [address] [place] [address] GFR/1.73 sq M predicted among blacks MDRD vol rate/area (S/P/Bld) mL/min/{1.73_m2} Normal >60 [facility] Comment on above: Performed By: #### H EMDF, PT, BMP3M, PHOS3, MG3, CK3 #### [address] [address] #### VD25H #### [facility] [address] [place] [address] GFR/1.73 sq M predicted among non-blacks MDRD vol rate/area (S/P/Bld) mL/min/{1.73_m2} Normal >60 [facility] Comment on above: Result Comment: Sour ce- MDRD equation with creatinine calibration to IDMS(NKDEP) eGFR not recommended for drug dose adjustment Performed By: #### H EMDF, PT, BMP3M, PHOS3, MG3, CK3 #### [address] [place] #### VD25H #### [facility] [address] [place] [address] Potassium molar conc 3.2 mmol/L Low 3.5-5.1 [facility] Comment on above: Performed By: #### H EMDF, PT, BMP3M, PHOS3, MG3, CK3 #### [place] [address] [address] [place] #### VD25H #### [facility] [address] [place] [address] Chloride molar conc 99 mmol/L Normal 98-107 [facility] Comment on above: Performed By: #### H EMDF, PT, BMP3M, PHOS3, MG3, CK3 #### [address] #### VD25H #### [facility] [address] [place] [address] Sodium molar conc 139 mmol/L Normal 135-145 [facility] Comment on above: Performed By: #### H EMDF, PT, BMP3M, PHOS3, MG3, CK3 #### [address] [place] #### VD25H #### [facility] [address] [place] [address] CR Chest Portableon 07-28-19 19 CR Chest Portable Patient Name: KATHYA HOOPER Diagnostic Radiology Exam Date/Time 07/27/2018 07:08:59 EDT Exam CR Chest Portable Ordering Physician MARIA EUGENIA PEREZ Accession Number [id number] CPT4 Codes 95717 () Reason For Exam ETT placement Report [...] Transcribed Date and Time: 07/27/2018 8:02 Normal [facility] Glucose,Bedsideon 07-27-2018 Glucose mass conc 151 mg/dL High 70-[address] [facility] Comment on above: Result Comment: Test performed by glucose meter. Results may be 10%-15% lower than serum/plasma values. (CLIA ID [id number]) Performed By: #### H EMDF, PT, BMP3M, PHOS3, MG3, CK3 #### [facility] [address] [place], [place] #### VD25H #### [facility] [address] [place] [address] Glucose mass conc 131 mg/dL High 70-[address] [facility] Comment on above: Result Comment: Test performed by glucose meter. Results may be 10%-15% lower than serum/plasma values. (CLIA ID [id number]) Performed By: #### H EMDF, PT, BMP3M, PHOS3, MG3, CK3 #### [facility] [address] [place], [place] #### VD25H #### [facility] [address] [place] [address] Glucose mass conc 123 mg/dL High 70-[address] [facility] Comment on above: Result Comment: Test performed by glucose meter. Results may be 10%-15% lower than serum/plasma values. (CLIA ID [id number]) Performed By: #### H EMDF, PT, BMP3M, PHOS3, MG3, CK3 #### [facility] [address] [place], [place] #### VD25H #### [facility] [address] [place] [address] Glucose mass conc 133 mg/dL High 70-100 [facility] Comment on above: Result Comment: Test performed by glucose meter. Results may be 10%-15% lower than serum/plasma values. (CLIA ID [id number]) Performed By: #### H EMDF, PT, BMP3M, PHOS3, MG3, CK3 #### [address] #### VD25H #### [place] [address] [place] [address] Hemogram w/ Autodiffon 07-27 Erythrocyte distribution width Ratio (RBC) 13.5 % Normal 11.5-14.5 [facility] Comment on above: Performed By: #### H EMDF, PT, BMP3M, PHOS3, MG3, CK3 #### [address] #### VD25H #### [address] [place] [address] Hematocrit Volume Fraction (Bld) 32.5 % Low 40.0-52.0 [facility] Comment on above: Performed By: #### H EMDF, PT, BMP3M, PHOS3, MG3, CK3 #### [address] #### VD25H #### [address] [place] [address] Hemoglobin mass conc (Bld) 11.1 g/dL Low 13.0-18.0 [facility] Comment on above: Performed By: #### H EMDF, PT, BMP3M, PHOS3, MG3, CK3 #### [address] #### VD25H #### [place] [address] [place] [address] MCH Entitic mass (RBC) 29.2 pg Normal 26.0-34.0 [facility] Comment on above: Performed By: #### H EMDF, PT, BMP3M, PHOS3, MG3, CK3 #### [address] #### VD25H #### [facility] [address] [place] [address] MCHC mass conc (RBC) 34.1 % Normal 32.0-36.0 [facility] Comment on above: Performed By: #### H EMDF, PT, BMP3M, PHOS3, MG3, CK3 #### [address] #### VD25H #### [facility] [address] [place] [address] MCV Entitic volume (RBC) 85.7 fL Normal 80.0-98.0 [facility] Comment on above: Performed By: #### H EMDF, PT, BMP3M, PHOS3, MG3, CK3 #### [address] #### VD25H #### [facility] [address] [place] [address] Platelet mean volume Entitic volume (Bld) 7.9 fL Normal 7.4-10.4 [facility] Comment on above: Performed By: #### H EMDF, PT, BMP3M, PHOS3, MG3, CK3 #### [address] #### VD25H #### [facility] [address] [place] [address] Platelets #/vol (Bld) 466 10*3/uL High 140-440 [facility] Comment on above: Performed By: #### H EMDF, PT, BMP3M, PHOS3, MG3, CK3 #### [address] #### VD25H #### [facility] [address] [place] [address] RBC #/vol (Bld) 3.79 10*6/uL Low 4.40-5.90 [facility] Comment on above: Performed By: #### H EMDF, PT, BMP3M, PHOS3, MG3, CK3 #### [facility] [address] [place] #### VD25H #### [facility] [address] [place] [address] WBC #/vol (Bld) 18.7 10*3/uL High 3.6-10.7 [facility] Comment on above: Performed By: #### H EMDF, PT, BMP3M, PHOS3, MG3, CK3 #### [address] #### VD25H #### [facility] [address] [place] [address] Magnesiumon 07-27-2018 Magnesium mass conc 2.1 mg/dL Normal 1.6-2.3 [facility] Comment on above: Performed By: #### H EMDF, PT, BMP3M, PHOS3, MG3, CK3 #### [address] #### VD25H #### [facility] [address] [place] [address] Manual Diffon 07-27-2018 RBC morphology finding Nom (Bld) Normal Normal [facility] Comment on above: Performed By: #### H EMDF, PT, BMP3M, PHOS3, MG3, CK3 #### [address] #### VD25H #### [facility] [address] [place] [address] Abs Neutrophile Cnt 14.2 10*3/uL High 2.2-8.2 [facility] Comment on above: Performed By: #### H EMDF, PT, BMP3M, PHOS3, MG3, CK3 #### [address] #### VD25H #### [facility] [address] [place] [address] Atypical Lymphocytes 2 % Abnormal <1 [facility] Comment on above: Performed By: #### H EMDF, PT, BMP3M, PHOS3, MG3, CK3 #### [facility] [address] [place] #### VD25H #### [facility] [address] [place] [address] Bands 5 % High 0-3 [facility] Comment on above: Performed By: #### H EMDF, PT, BMP3M, PHOS3, MG3, CK3 #### [facility] [address] [place] #### VD25H #### [facility] [address] [place] [address] Eosinophils #/vol (Bld) 0.6 10*3/uL High 0.0-0.5 [facility] Comment on above: Performed By: #### H EMDF, PT, BMP3M, PHOS3, MG3, CK3 #### [facility] [address] [place] #### VD25H #### [facility] [address] [place] [address] Eosinophils/100 WBC (Bld) 3 % Normal 1-6 [facility] Comment on above: Performed By: #### H EMDF, PT, BMP3M, PHOS3, MG3, CK3 #### [facility] [address] [place] #### VD25H #### [facility] [address] [place] [address] Lymphocytes #/vol (Bld) 2.1 10*3/uL Normal 1.1-4.5 [facility] Comment on above: Performed By: #### H EMDF, PT, BMP3M, PHOS3, MG3, CK3 #### [facility] [address] [place] #### VD25H #### [facility] [address] [place] [address] Lymphocytes/100 WBC (Bld) 11 % Low 20-40 [facility] Comment on above: Performed By: #### H EMDF, PT, BMP3M, PHOS3, MG3, CK3 #### [facility] [address] [place] #### VD25H #### [facility] [address] [place] [address] Monocytes #/vol (Bld) 1.5 10*3/uL High 0.2-1.1 [facility] Comment on above: Performed By: #### H EMDF, PT, BMP3M, PHOS3, MG3, CK3 #### [place] [address] [place], [place] #### VD25H #### [facility] [address] [place] [address] Monocytes/100 WBC (Bld) 8 % Normal 2-10 [facility] Comment on above: Performed By: #### H EMDF, PT, BMP3M, PHOS3, MG3, CK3 #### [place] [address] [address] [place] #### VD25H #### [facility] [address] [place] [address] NRBC 1 /100{WBCs} High -1-0 [facility] Comment on above: Result Comment: Newb orn (<60 days) 1-10 Adult <1 Performed By: #### H EMDF, PT, BMP3M, PHOS3, MG3, CK3 #### [facility] [address] [place] #### VD25H #### [facility] [address] [place] [address] Seg Neutrophils 71 % Normal 40-80 [facility] Comment on above: Performed By: #### H EMDF, PT, BMP3M, PHOS3, MG3, CK3 #### [address] #### VD25H #### [facility] [address] [place] [address] Abs Baso Cnt 0.0 10*3/uL Normal 0.0-0.2 [facility] Comment on above: Performed By: #### H EMDF, PT, BMP3M, PHOS3, MG3, CK3 #### [facility] [address] [place] #### VD25H #### [facility] [address] [place] [address] Basophils/100 WBC (Bld) 0 % Normal 0-2 S [facility] Comment on above: Performed By: #### H EMDF, PT, BMP3M, PHOS3, MG3, CK3 #### [place] [address] [address] [place] #### VD25H #### [facility] [address] [facility] [place] [address] Cells counted 100 Normal [facility] System Comment on above: Performed By: #### H EMDF, PT, BMP3M, PHOS3, MG3, CK3 #### [facility] [address] [place], [place] #### VD25H #### [facility] [address] [facility] [place] [address] Phosphoruson 07-27-2018 Phosphate mass conc 3.0 mg/dL Normal 2.5-4.5 [facility] Comment on above: Performed By: #### H EMDF, PT, BMP3M, PHOS3, MG3, CK3 #### [place] [address] [place], [place] #### VD25H #### [facility] [address] [place] [address] VL Venous Duplex US Lower Ex t Bilateralon 07-27-2018 VL Venous Duplex US Lower Ext Bilateral Patient Name: KATHYA HOOPER Ultrasound Exam Date/Time 07/27/2018 10:56:18 EDT Exam VL Venous Duplex US Lower Ext Bilateral Ordering Physician ETIENNE MARTÍNEZ JULIE Accession Number [id number] CPT4 Codes 16084 () Reason For Exam edema Report [facility] --- Lower Extremity Venous Duplex Report Patient Name: Kathya Hooper : 1955 Study Date: 07/27/2018 W (63yrs) Age: 63 Account: [id number] Gender: M Loc: T209 BP: Ordering: Yesenia Martínez Technologist: Ordering Physician: Yesenia Martínez Human Service Worker: Mary Man RVT Interpreting Physician: Ricardo Hall MD --- Location: [facility] --- INDICATIONS: Bilateral leg edema. --- CONCLUSIONS [...] performed. The images were obtained using a [employer] E9 vascular ultrasound machine. The study was [...] --+ Electronically signed by: Ricardo Hall MD [id number] Final Dictated: 07/27/2018 12:55 pm Dictating Physician: RICARDO HALL Signed Date and Time: 07/27/2018 12:55 pm Signed by: RICARDO HALL [facility] Basic Metabolic Panelon 06-30 Calcium mass conc 7.9 mg/dL Low 8.4-10.4 [facility] Comment on above: Performed By: #### H EMDF, PT, BMP3M, PHOS3, MG3, CK3 #### [place] [address] [place], [place] #### VD25H #### [facility] [address] [place] [address] Anion gap molar conc 9 Normal [facility] Comment on above: Performed By: #### H EMDF, PT, BMP3M, PHOS3, MG3, CK3 #### [address] #### VD25H #### [facility] [address] [place] [address] CO2 molar conc 24 mmol/L Normal 22-30 [facility] Comment on above: Performed By: #### H EMDF, PT, BMP3M, PHOS3, MG3, CK3 #### [place] [address] [place] #### VD25H #### [facility] [address] [place] [address] Creatinine mass conc 0.54 mg/dL Normal 0.52-1.25 [facility] Comment on above: Performed By: #### H EMDF, PT, BMP3M, PHOS3, MG3, CK3 #### [place] [address] [place], [place] #### VD25H #### [facility] [address] [place] [address] GFR/1.73 sq M predicted among blacks MDRD vol rate/area (S/P/Bld) mL/min/{1.73_m2} Normal >60 [facility] Comment on above: Performed By: #### H EMDF, PT, BMP3M, PHOS3, MG3, CK3 #### [address] #### VD25H #### [facility] [address] [place] [address] GFR/1.73 sq M predicted among non-blacks MDRD vol rate/area (S/P/Bld) mL/min/{1.73_m2} Normal >60 [facility] Comment on above: Result Comment: Sour ce- MDRD equation with creatinine calibration to IDMS(NKDEP) eGFR not recommended for drug dose adjustment Performed By: #### H EMDF, PT, BMP3M, PHOS3, MG3, CK3 #### [facility] [address] [place], [place] #### VD25H #### [facility] [address] [place] [address] Glucose mass conc 166 mg/dL High 70-100 [facility] Comment on above: Performed By: #### H EMDF, PT, BMP3M, PHOS3, MG3, CK3 #### [place] [address] [place], [place] #### VD25H #### [facility] [address] [place] [address] Urea nitrogen mass conc 21 mg/dL High 7-20 [facility] Comment on above: Performed By: #### H EMDF, PT, BMP3M, PHOS3, MG3, CK3 #### [place] [address] [place] #### VD25H #### [facility] [address] [place] [address] Chloride molar conc 107 mmol/L Normal 98-107 [facility] Comment on above: Performed By: #### H EMDF, PT, BMP3M, PHOS3, MG3, CK3 #### [address] #### VD25H #### [facility] [address] [place] [address] Potassium molar conc 3.7 mmol/L Normal 3.5-5.1 [facility] Comment on above: Performed By: #### H EMDF, PT, BMP3M, PHOS3, MG3, CK3 #### [place] [address] [place] [address] #### VD25H #### [facility] [address] [place] [address] Sodium molar conc 140 mmol/L Normal 135-145 [facility] Comment on above: Performed By: #### H EMDF, PT, BMP3M, PHOS3, MG3, CK3 #### [facility] [address] [place], [place] #### VD25H #### [facility] [address] [place] [address] CR Chest Portableon 07-27-19 19 CR Chest Portable Patient Name: KATHYA HOOPER Diagnostic Radiology Exam Date/Time 07/26/2018 06:06:25 EDT Exam CR Chest Portable Ordering Physician MARIA EUGENIA PEREZ Accession Number [id number] CPT4 Codes 47281 () Reason For Exam ETT placement Report [...] Transcribed Date and Time: 07/26/2018 9:15 Normal [facility] Glucose,Bedsideon 07-26-2018 Glucose mass conc 160 mg/dL High 70-100 [facility] Comment on above: Result Comment: Test performed by glucose meter. Results may be 10%-15% lower than serum/plasma values. (CLIA ID [id number]) Performed By: #### H EMDF, PT, BMP3M, PHOS3, MG3, CK3 #### [facility] [address] [place], [place] #### VD25H #### [facility] [address] [place] [address] Glucose mass conc 166 mg/dL High 70-[address] [facility] Comment on above: Result Comment: Test performed by glucose meter. Results may be 10%-15% lower than serum/plasma values. (CLIA ID [id number]) Performed By: #### H EMDF, PT, BMP3M, PHOS3, MG3, CK3 #### [facility] [address] [place] [address] #### VD25H #### [facility] [address] [place] [address] Glucose mass conc 183 mg/dL High 70-[address] [facility] [facility] Comment on above: Result Comment: Test performed by glucose meter. Results may be 10%-15% lower than serum/plasma values. (CLIA ID [id number]) Performed By: #### H EMDF, PT, BMP3M, PHOS3, MG3, CK3 #### [facility] [address] [place] [address] #### VD25H #### [facility] [address] [place] [address] Glucose mass conc 151 mg/dL High 70-[address] [facility] [facility] Comment on above: Result Comment: Test performed by glucose meter. Results may be 10%-15% lower than serum/plasma values. (CLIA ID [id number]) Performed By: #### H EMDF, PT, BMP3M, PHOS3, MG3, CK3 #### [facility] [address] [place], [place] #### VD25H #### [facility] [address] [place] [address] Hemogram w/ Autodiffon 07-26 Erythrocyte distribution width Ratio (RBC) 13.7 % Normal 11.5-14.5 [facility] Comment on above: Performed By: #### H EMDF, PT, BMP3M, PHOS3, MG3, CK3 #### [address] [place], [place] #### VD25H #### [facility] [address] [place] [address] Hematocrit Volume Fraction (Bld) 31.1 % Low 40.0-52.0 [facility] Comment on above: Performed By: #### H EMDF, PT, BMP3M, PHOS3, MG3, CK3 #### [address] #### VD25H #### [facility] [address] [place] [address] Hemoglobin mass conc (Bld) 10.6 g/dL Low 13.0-18.0 [facility] Comment on above: Performed By: #### H EMDF, PT, BMP3M, PHOS3, MG3, CK3 #### [address] #### VD25H #### [facility] [address] [place] [address] MCH Entitic mass (RBC) 29.2 pg Normal 26.0-34.0 [facility] Comment on above: Performed By: #### H EMDF, PT, BMP3M, PHOS3, MG3, CK3 #### [address] #### VD25H #### [facility] [address] [place] [address] MCHC mass conc (RBC) 34.0 % Normal 32.0-36.0 [facility] Comment on above: Performed By: #### H EMDF, PT, BMP3M, PHOS3, MG3, CK3 #### [address] #### VD25H #### [facility] [address] [place] [address] MCV Entitic volume (RBC) 86.1 fL Normal 80.0-98.0 [facility] Comment on above: Performed By: #### H EMDF, PT, BMP3M, PHOS3, MG3, CK3 #### [address] [place] #### VD25H #### [facility] [address] [place] [address] Platelet mean volume Entitic volume (Bld) 8.3 fL Normal 7.4-10.4 [facility] Comment on above: Performed By: #### H EMDF, PT, BMP3M, PHOS3, MG3, CK3 #### [address] #### VD25H #### [facility] [address] [place] [address] Platelets #/vol (Bld) 364 10*3/uL Normal 140-440 [facility] Comment on above: Performed By: #### H EMDF, PT, BMP3M, PHOS3, MG3, CK3 #### [address] [place] #### VD25H #### [facility] [address] [place] [address] RBC #/vol (Bld) 3.62 10*6/uL Low 4.40-5.90 [facility] Comment on above: Performed By: #### H EMDF, PT, BMP3M, PHOS3, MG3, CK3 #### [place] [address] [place] #### VD25H #### [facility] [address] [place] [address] WBC #/vol (Bld) 15.2 10*3/uL High 3.6-10.7 [facility] Comment on above: Performed By: #### H EMDF, PT, BMP3M, PHOS3, MG3, CK3 #### [address] #### VD25H #### [facility] [address] [place] [address] Magnesiumon 03-28-2019 Magnesium mass conc 2.0 mg/dL Normal 1.6-2.3 [facility] Comment on above: Performed By: #### H EMDF, PT, BMP3M, PHOS3, MG3, CK3 #### [facility] [address], [place] #### VD25H #### [facility] [address] [place] [address] Manual Diffon 07-26-2018 Abs Neutrophile Cnt 12.8 10*3/uL High 2.2-8.2 [facility] Comment on above: Performed By: #### H EMDF, PT, BMP3M, PHOS3, MG3, CK3 #### [address] #### VD25H #### [facility] [address] [place] [address] Lymphocytes #/vol (Bld) 1.4 10*3/uL Normal 1.1-4.5 [facility] Comment on above: Performed By: #### H EMDF, PT, BMP3M, PHOS3, MG3, CK3 #### [facility] [address], [place] #### VD25H #### [facility] [address] [place] [address] Lymphocytes/100 WBC (Bld) 9 % Low 20-40 [facility] Comment on above: Performed By: #### H EMDF, PT, BMP3M, PHOS3, MG3, CK3 #### [facility] [address], [place] #### VD25H #### [facility] [address] [place] [address] Monocytes #/vol (Bld) 1.1 10*3/uL Normal 0.2-1.1 [facility] Comment on above: Performed By: #### H EMDF, PT, BMP3M, PHOS3, MG3, CK3 #### [address] #### VD25H #### [facility] [address] [place] [address] Monocytes/100 WBC (Bld) 7 % Normal 2-10 [facility] Comment on above: Performed By: #### H EMDF, PT, BMP3M, PHOS3, MG3, CK3 #### [place] [address] [place] #### VD25H #### [facility] [address] [place] [address] RBC morphology finding Nom (Bld) Normal Normal [facility] Comment on above: Performed By: #### H EMDF, PT, BMP3M, PHOS3, MG3, CK3 #### [address] #### VD25H #### [facility] [address] [place] [address] Seg Neutrophils 84 % High 40-80 [facility] Comment on above: Performed By: #### H EMDF, PT, BMP3M, PHOS3, MG3, CK3 #### [address] #### VD25H #### [facility] [address] [place] [address] Abs Baso Cnt 0.0 10*3/uL Normal 0.0-0.2 [facility] Comment on above: Performed By: #### H EMDF, PT, BMP3M, PHOS3, MG3, CK3 #### [place] [address] [place] #### VD25H #### [facility] [address] [place] [address] Bands 0 % Normal 0-3 [facility] Comment on above: Performed By: #### H EMDF, PT, BMP3M, PHOS3, MG3, CK3 #### [address] #### VD25H #### [facility] [address] [place] [address] Basophils/100 WBC (Bld) 0 % Normal 0-2 [facility] Comment on above: Performed By: #### H EMDF, PT, BMP3M, PHOS3, MG3, CK3 #### [place] [address] [place] #### VD25H #### [facility] [address] [place] [address] Cells counted 100 Normal [facility] Comment on above: Performed By: #### H EMDF, PT, BMP3M, PHOS3, MG3, CK3 #### [address] #### VD25H #### [facility] [address] [place] [address] Eosinophils #/vol (Bld) 0.0 10*3/uL Normal 0.0-0.5 [facility] Comment on above: Performed By: #### H EMDF, PT, BMP3M, PHOS3, MG3, CK3 #### [address] #### VD25H #### [facility] [address] [place] [address] Eosinophils/100 WBC (Bld) 0 % Low 1-6 [facility] Comment on above: Performed By: #### H EMDF, PT, BMP3M, PHOS3, MG3, CK3 #### [address] #### VD25H #### [facility] [address] [place] [address] Phosphoruson 07-26-2018 Phosphate mass conc 3.1 mg/dL Normal 2.5-4.5 [facility] Comment on above: Performed By: #### H EMDF, PT, BMP3M, PHOS3, MG3, CK3 #### [address] #### VD25H #### [facility] [address] [place] [address] Vancomycin Troughon 07-27-19 19 Vancomycin Trough 8.9 ug/mL Low 15.0-20.0 [facility] Comment on above: Result Comment: . Performed By: #### H EMDF, PT, BMP3M, PHOS3, MG3, CK3 #### [facility] [address], [place] #### VD25H #### [facility] [address] [place] [address] Arterial Blood Gaseson 07-25 CO2 molar conc 22.0 mmol/L Low 23.0-27.0 [facility] Comment on above: Performed By: #### H EMDF, PT, BMP3M, PHOS3, MG3, CK3 #### [address] #### VD25H #### [facility] [address] [place] [address] HCO3 molar conc (Bld) 21.1 mmol/L Normal 21.0-25.0 [facility] Comment on above: Performed By: #### H EMDF, PT, BMP3M, PHOS3, MG3, CK3 #### [address] #### VD25H #### [facility] [address] [place] [address] Hemoglobin mass conc (Bld) 10.1 g/dL Normal ScreenOnly [facility] Comment on above: Performed By: #### H EMDF, PT, BMP3M, PHOS3, MG3, CK3 #### [address] #### VD25H #### [facility] [address] [facility] [place] [address] Oxygen ppres (Bld) 88.3 mm[Hg] Normal 80.0-100.0 [facility] Comment on above: Performed By: #### H EMDF, PT, BMP3M, PHOS3, MG3, CK3 #### [address] #### VD25H #### [facility] [address] [place] [address] Oxygen saturation in Blood 96.8 % Normal 95.0-100.0 [facility] Comment on above: Performed By: #### H EMDF, PT, BMP3M, PHOS3, MG3, CK3 #### [place] [address] [place] #### VD25H #### [facility] [address] [place] [address] pCO2 29.9 mm[Hg] Low 35.0-45.0 [facility] Comment on above: Performed By: #### H EMDF, PT, BMP3M, PHOS3, MG3, CK3 #### [address] #### VD25H #### [place] [address] [place] [address] pH (Bld) 7.467 High 7.350-7.450 [facility] Comment on above: Performed By: #### H EMDF, PT, BMP3M, PHOS3, MG3, CK3 #### [address] #### VD25H #### [facility] [address] [place] [address] Std Base Excess -1.9 mmol/L Normal -3.0-3.0 [facility] Comment on above: Performed By: #### H EMDF, PT, BMP3M, PHOS3, MG3, CK3 #### [address] [place] #### VD25H #### [facility] [address] [place] [address] FIO2 .30 Normal [facility] Comment on above: Performed By: #### H EMDF, PT, BMP3M, PHOS3, MG3, CK3 #### [address] #### VD25H #### [place] [address] [place] [address] Basic Metabolic Panelon 03-2 Calcium mass conc 8.1 mg/dL Low 8.4-10.4 [facility] Comment on above: Performed By: #### H EMDF, PT, BMP3M, PHOS3, MG3, CK3 #### [address] #### VD25H #### [facility] [address] [place] [address] Anion gap molar conc 8 Normal [facility] Comment on above: Performed By: #### H EMDF, PT, BMP3M, PHOS3, MG3, CK3 #### [address] #### VD25H #### [place] [address] [place] [address] CO2 molar conc 24 mmol/L Normal 22-30 [facility] Comment on above: Performed By: #### H EMDF, PT, BMP3M, PHOS3, MG3, CK3 #### [address] #### VD25H #### [place] [address] [place] [address] Creatinine mass conc 0.55 mg/dL Normal 0.52-1.25 [facility] Comment on above: Performed By: #### H EMDF, PT, BMP3M, PHOS3, MG3, CK3 #### [address] #### VD25H #### [place] [address] [place] [address] GFR/1.73 sq M predicted among blacks MDRD vol rate/area (S/P/Bld) mL/min/{1.73_m2} Normal >60 [facility] Comment on above: Performed By: #### H EMDF, PT, BMP3M, PHOS3, MG3, CK3 #### [address] [address] #### VD25H #### [facility] [address] [place] [address] GFR/1.73 sq M predicted among non-blacks MDRD vol rate/area (S/P/Bld) mL/min/{1.73_m2} Normal >60 [facility] Comment on above: Result Comment: Sour ce- MDRD equation with creatinine calibration to IDMS(NKDEP) eGFR not recommended for drug dose adjustment Performed By: #### H EMDF, PT, BMP3M, PHOS3, MG3, CK3 #### [place] [address] [place] #### VD25H #### [facility] [address] [place] [address] Glucose mass conc 184 mg/dL High 70-100 [facility] Comment on above: Performed By: #### H EMDF, PT, BMP3M, PHOS3, MG3, CK3 #### [address] #### VD25H #### [facility] [address] [place] [address] Urea nitrogen mass conc 20 mg/dL Normal 7-20 [facility] Comment on above: Performed By: #### H EMDF, PT, BMP3M, PHOS3, MG3, CK3 #### [address] #### VD25H #### [facility] [address] [place] [address] Chloride molar conc 109 mmol/L High 98-107 [facility] Comment on above: Performed By: #### H EMDF, PT, BMP3M, PHOS3, MG3, CK3 #### [address] #### VD25H #### [facility] [address] [place] [address] Potassium molar conc 4.0 mmol/L Normal 3.5-5.1 [facility] Comment on above: Performed By: #### H EMDF, PT, BMP3M, PHOS3, MG3, CK3 #### [facility] [address] [place] [address] #### VD25H #### [facility] [address] [place] [address] Sodium molar conc 141 mmol/L Normal 135-145 [facility] Comment on above: Performed By: #### H EMDF, PT, BMP3M, PHOS3, MG3, CK3 #### [facility] [address] [facility] [place] [address] #### VD25H #### [facility] [address] [place] [address] CR Chest Portableon 07-26-19 19 CR Chest Portable Patient Name: KATHYA HOOPER Diagnostic Radiology Exam Date/Time 07/25/2018 06:39:42 EDT Exam CR Chest Portable Ordering Physician MARIA EUGENIA PEREZ Accession Number [id number] CPT4 Codes 93528 () Reason For Exam ETT placement Report [...] Transcribed Date and Time: 07/25/2018 7:45 Normal [facility] CULTURE URINEon 07-25-2018 CULTURE URINE 1 [...] 4 S Trimeth/Sulfa(CHRISTI) <= 20 S Normal [employer] [facility] Comment on above: Order Comment: Speci men Source Comment:Urine, clean catch Performed By: #### H EMDF, PT, BMP3M, PHOS3, MG3, CK3 #### [facility] [address] [place] [address] #### VD25H #### [facility] [address] [place] [address] Glucose,Bedsideon 07-25-2018 Glucose mass conc 140 mg/dL High 70-100 [facility] Comment on above: Result Comment: Test performed by glucose meter. Results may be 10%-15% lower than serum/plasma values. (CLIA ID [id number]) Performed By: #### H EMDF, PT, BMP3M, PHOS3, MG3, CK3 #### [facility] [address] [place] [address] #### VD25H #### [facility] [address] [place] [address] Glucose mass conc 158 mg/dL High 70-100 [facility] Comment on above: Result Comment: Test performed by glucose meter. Results may be 10%-15% lower than serum/plasma values. (CLIA ID [id number]) Performed By: #### H EMDF, PT, BMP3M, PHOS3, MG3, CK3 #### [facility] [address] [place] [address] #### VD25H #### [facility] [address] [place] [address] Glucose mass conc 172 mg/dL High 70-[address] [facility] Comment on above: Result Comment: Test performed by glucose meter. Results may be 10%-15% lower than serum/plasma values. (CLIA ID [id number]) Performed By: #### H EMDF, PT, BMP3M, PHOS3, MG3, CK3 #### [facility] [address] [place], [place] #### VD25H #### [facility] [address] [place] [address] Glucose mass conc 169 mg/dL High 70-[address] [facility] Comment on above: Result Comment: Test performed by glucose meter. Results may be 10%-15% lower than serum/plasma values. (CLIA ID [id number]) Performed By: #### H EMDF, PT, BMP3M, PHOS3, MG3, CK3 #### [facility] [address] [place] [address] #### VD25H #### [facility] [address] [place] [address] Glucose mass conc 165 mg/dL High 70-[address] [facility] Comment on above: Result Comment: Test performed by glucose meter. Results may be 10%-15% lower than serum/plasma values. (CLIA ID [id number]) Performed By: #### H EMDF, PT, BMP3M, PHOS3, MG3, CK3 #### [address] [place], [place] #### VD25H #### [facility] [address] [place] [address] Hemogram w/ Autodiffon 07-25 Erythrocyte distribution width Ratio (RBC) 13.6 % Normal 11.5-14.5 [facility] Comment on above: Performed By: #### H EMDF, PT, BMP3M, PHOS3, MG3, CK3 #### [address] #### VD25H #### [facility] [address] [place] [address] Hematocrit Volume Fraction (Bld) 31.3 % Low 40.0-52.0 [facility] Comment on above: Performed By: #### H EMDF, PT, BMP3M, PHOS3, MG3, CK3 #### [address] #### VD25H #### [facility] [address] [address] Hemoglobin mass conc (Bld) 10.6 g/dL Low 13.0-18.0 [facility] Comment on above: Performed By: #### H EMDF, PT, BMP3M, PHOS3, MG3, CK3 #### [address] #### VD25H #### [facility] [address] [place] [address] MCH Entitic mass (RBC) 29.4 pg Normal 26.0-34.0 [facility] Comment on above: Performed By: #### H EMDF, PT, BMP3M, PHOS3, MG3, CK3 #### [address] #### VD25H #### [facility] [address] [place] [address] MCHC mass conc (RBC) 33.8 % Normal 32.0-36.0 [facility] Comment on above: Performed By: #### H EMDF, PT, BMP3M, PHOS3, MG3, CK3 #### [place] [address] [place] #### VD25H #### [facility] [address] [place] [address] MCV Entitic volume (RBC) 86.9 fL Normal 80.0-98.0 [facility] Comment on above: Performed By: #### H EMDF, PT, BMP3M, PHOS3, MG3, CK3 #### [place] [address] [place] #### VD25H #### [facility] [address] [place] [address] Platelet mean volume Entitic volume (Bld) 8.3 fL Normal 7.4-10.4 [facility] Comment on above: Performed By: #### H EMDF, PT, BMP3M, PHOS3, MG3, CK3 #### [address] [place] #### VD25H #### [facility] [address] [place] [address] Platelets #/vol (Bld) 360 10*3/uL Normal 140-440 [facility] Comment on above: Performed By: #### H EMDF, PT, BMP3M, PHOS3, MG3, CK3 #### [place] [address] [place], [place] #### VD25H #### [facility] [address] [place] [address] RBC #/vol (Bld) 3.61 10*6/uL Low 4.40-5.90 [facility] Comment on above: Performed By: #### H EMDF, PT, BMP3M, PHOS3, MG3, CK3 #### [address] #### VD25H #### [facility] [address] [place] [address] WBC #/vol (Bld) 14.7 10*3/uL High 3.6-10.7 [facility] Comment on above: Performed By: #### H EMDF, PT, BMP3M, PHOS3, MG3, CK3 #### [facility] [address] [place], [place] #### VD25H #### [facility] [address] [place] [address] Magnesiumon 07-25-2018 Magnesium mass conc 2.1 mg/dL Normal 1.6-2.3 [facility] Comment on above: Performed By: #### H EMDF, PT, BMP3M, PHOS3, MG3, CK3 #### [address] #### VD25H #### [place] [address] [place] [address] Manual Diffon 07-25-2018 Abs Baso Cnt 0.1 10*3/uL Normal 0.0-0.2 [facility] Comment on above: Performed By: #### H EMDF, PT, BMP3M, PHOS3, MG3, CK3 #### [address] #### VD25H #### [facility] [address] [facility] [address] [place] Abs Neutrophile Cnt 12.9 10*3/uL High 2.2-8.2 [facility] Comment on above: Performed By: #### H EMDF, PT, BMP3M, PHOS3, MG3, CK3 #### [address] #### VD25H #### [facility] [address] [place] [address] Anisocytosis Ql (Bld) Slight Normal [facility] Comment on above: Performed By: #### H EMDF, PT, BMP3M, PHOS3, MG3, CK3 #### [address] #### VD25H #### [facility] [address] [place] [address] Bands 4 % High 0-3 [facility] Comment on above: Performed By: #### H EMDF, PT, BMP3M, PHOS3, MG3, CK3 #### [facility] [address] [place] #### VD25H #### [facility] [address] [place] [address] Basophils/100 WBC (Bld) 1 % Normal 0-2 [facility] Comment on above: Performed By: #### H EMDF, PT, BMP3M, PHOS3, MG3, CK3 #### [place] [address] [address] [place] #### VD25H #### [facility] [address] [place] [address] Eosinophils #/vol (Bld) 0.6 10*3/uL High 0.0-0.5 [facility] Comment on above: Performed By: #### H EMDF, PT, BMP3M, PHOS3, MG3, CK3 #### [place] [address] [place] #### VD25H #### [facility] [address] [place] [address] Eosinophils/100 WBC (Bld) 4 % Normal 1-6 [facility] Comment on above: Performed By: #### H EMDF, PT, BMP3M, PHOS3, MG3, CK3 #### [place] [address] [address] [place] #### VD25H #### [facility] [address] [place] [address] Lymphocytes #/vol (Bld) 0.1 10*3/uL Low 1.1-4.5 [facility] Comment on above: Performed By: #### H EMDF, PT, BMP3M, PHOS3, MG3, CK3 #### [place] [address] [place] #### VD25H #### [facility] [address] [place] [address] Lymphocytes/100 WBC (Bld) 1 % Low 20-40 [facility] Comment on above: Performed By: #### H EMDF, PT, BMP3M, PHOS3, MG3, CK3 #### [place] [address] [address] [place] #### VD25H #### [facility] [address] [place] [address] Macrocytosis Slight Normal [facility] Comment on above: Performed By: #### H EMDF, PT, BMP3M, PHOS3, MG3, CK3 #### [address] #### VD25H #### [facility] [address] [place] [address] Metamyelocytes 2 % Abnormal <1 [facility] Comment on above: Performed By: #### H EMDF, PT, BMP3M, PHOS3, MG3, CK3 #### [place] [address] [address] [place] #### VD25H #### [facility] [address] [place] [address] Microcytosis Slight Normal [facility] Comment on above: Performed By: #### H EMDF, PT, BMP3M, PHOS3, MG3, CK3 #### [address] #### VD25H #### [facility] [address] [place] [address] Monocytes #/vol (Bld) 0.6 10*3/uL Normal 0.2-1.1 [facility] Comment on above: Performed By: #### H EMDF, PT, BMP3M, PHOS3, MG3, CK3 #### [place] [address] [address] [place] #### VD25H #### [facility] [address] [place] [address] Monocytes/100 WBC (Bld) 4 % Normal 2-10 [facility] Comment on above: Performed By: #### H EMDF, PT, BMP3M, PHOS3, MG3, CK3 #### [facility] [address] [place] #### VD25H #### [facility] [address] [place] [address] RBC morphology finding Nom (Bld) ABNORMAL Normal [facility] Comment on above: Performed By: #### H EMDF, PT, BMP3M, PHOS3, MG3, CK3 #### [facility] [address] [place] #### VD25H #### [facility] [address] [place] [address] Seg Neutrophils 84 % High 40-80 [facility] Comment on above: Performed By: #### H EMDF, PT, BMP3M, PHOS3, MG3, CK3 #### [place] [address] [place] #### VD25H #### [facility] [address] [place] [address] Cells counted 100 Normal [facility] Comment on above: Performed By: #### H EMDF, PT, BMP3M, PHOS3, MG3, CK3 #### [place] [address] [address] [place] #### VD25H #### [facility] [address] [place] [address] Phosphoruson 07-25-2018 Phosphate mass conc 2.7 mg/dL Normal 2.5-4.5 [facility] Comment on above: Performed By: #### H EMDF, PT, BMP3M, PHOS3, MG3, CK3 #### [place] [address] [place] #### VD25H #### [facility] [address] [place] [address] Triglycerideon 07-25-2018 Triglyceride mass conc 82 mg/dL Normal <150 [facility] Comment on above: Performed By: #### H EMDF, PT, BMP3M, PHOS3, MG3, CK3 #### [address] [place], [place] #### VD25H #### [facility] [address] [place] [address] Basic Metabolic Panelon 03-2 Calcium mass conc 8.0 mg/dL Low 8.4-10.4 [facility] Comment on above: Performed By: #### H EMDF, PT, BMP3M, PHOS3, MG3, CK3 #### [place] [address] [place] #### VD25H #### [facility] [address] [place] [address] Anion gap molar conc 9 Normal [facility] Comment on above: Performed By: #### H EMDF, PT, BMP3M, PHOS3, MG3, CK3 #### [address] #### VD25H #### [place] [address] [place] [address] CO2 molar conc 23 mmol/L Normal 22-30 [facility] Comment on above: Performed By: #### H EMDF, PT, BMP3M, PHOS3, MG3, CK3 #### [address] #### VD25H #### [facility] [address] [place] [address] Creatinine mass conc 0.71 mg/dL Normal 0.52-1.25 [facility] Comment on above: Performed By: #### H EMDF, PT, BMP3M, PHOS3, MG3, CK3 #### [address] #### VD25H #### [place] [address] [place] [address] GFR/1.73 sq M predicted among blacks MDRD vol rate/area (S/P/Bld) mL/min/{1.73_m2} Normal >60 [facility] Comment on above: Performed By: #### H EMDF, PT, BMP3M, PHOS3, MG3, CK3 #### [facility] [address] [facility], [place] #### VD25H #### [facility] [address] [place] [address] GFR/1.73 sq M predicted among non-blacks MDRD vol rate/area (S/P/Bld) mL/min/{1.73_m2} Normal >60 [facility] Comment on above: Result Comment: Sour ce- MDRD equation with creatinine calibration to IDMS(NKDEP) eGFR not recommended for drug dose adjustment Performed By: #### H EMDF, PT, BMP3M, PHOS3, MG3, CK3 #### [place] [address] [address] [facility], [place] #### VD25H #### [facility] [address] [place] [address] Glucose mass conc 160 mg/dL High 70-100 [facility] Comment on above: Performed By: #### H EMDF, PT, BMP3M, PHOS3, MG3, CK3 #### [place] [address] [address] [facility] #### VD25H #### [facility] [address] [place] [address] Urea nitrogen mass conc 28 mg/dL High 7-20 [facility] Comment on above: Performed By: #### H EMDF, PT, BMP3M, PHOS3, MG3, CK3 #### [facility] [address] [facility] [place] [place] #### VD25H #### [facility] [address] [place] [address] Chloride molar conc 109 mmol/L High 98-107 [facility] Comment on above: Performed By: #### H EMDF, PT, BMP3M, PHOS3, MG3, CK3 #### [facility] [address] [facility] [place] [place] #### VD25H #### [facility] [address] [place] [address] Potassium molar conc 3.7 mmol/L Normal 3.5-5.1 [facility] Comment on above: Performed By: #### H EMDF, PT, BMP3M, PHOS3, MG3, CK3 #### [facility] [address] [place] [address] #### VD25H #### [facility] [address] [place] [address] Sodium molar conc 141 mmol/L Normal 135-145 [facility] Comment on above: Performed By: #### H EMDF, PT, BMP3M, PHOS3, MG3, CK3 #### [facility] [address] [place] [address] #### VD25H #### [facility] [address] [place] [address] CR Chest Portableon 07-25-19 19 CR Chest Portable Patient Name: KATHYA HOOPER Diagnostic Radiology Exam Date/Time 07/24/2018 13:12:47 EDT Exam CR Chest Portable Ordering Physician DO WOLFF KATHRYN C Accession Number [id number] CPT4 Codes 56021 () Reason For Exam line placement Report [...] Transcribed Date and Time: 07/24/2018 3:10 Normal [facility] CR Chest Portable Patient Name: KATHYA HOOPER Diagnostic Radiology Exam Date/Time 07/24/2018 07:11:26 EDT Exam CR Chest Portable Ordering Physician MARIA EUGENIA PEREZ Accession Number [id number] CPT4 Codes 05940 () Reason For Exam ETT placement Report [...] Transcribed Date and Time: 07/24/2018 7:31 Normal [facility] CULT./ST. RESPIRATORYon 06-30 CULT./ST. RESPIRATORY CULT./ST. [...] 1 S Trimeth/Sulfa(CHRISTI) <= 20 S Normal [facility] Comment on above: Order Comment: Speci men Source Comment:Endotracheal Performed By: #### H EMDF, PT, BMP3M, PHOS3, MG3, CK3 #### [facility] [address] [place] [id number] #### VD25H #### [facility] [address] [place] [address] CULTURE URINEon 07-24-2018 CULTURE URINE 1 Organism [...] 4 S Trimeth/Sulfa(CHRISTI) <= 20 S Normal [facility] Comment on above: Order Comment: Speci men Source Comment:Urine, clean catch Performed By: #### H EMDF, PT, BMP3M, PHOS3, MG3, CK3 #### [facility] [address] [place] [address] #### VD25H #### [facility] [address] [place] [address] Creatinine, Ur Randomon 06-30 Creatinine, Ur Random 49.5 mg/dL Normal No Range [facility] Comment on above: Performed By: #### H EMDF, PT, BMP3M, PHOS3, MG3, CK3 #### [facility] [employer] [facility] [address] [place] [address] #### VD25H #### [facility] [address] [place] [address] Glucose,Bedsideon 07-24-2018 Glucose mass conc 124 mg/dL High 70-100 [facility] Comment on above: Result Comment: Test performed by glucose meter. Results may be 10%-15% lower than serum/plasma values. (CLIA ID [id number]) Performed By: #### H EMDF, PT, BMP3M, PHOS3, MG3, CK3 #### [facility] [address] [place] [address] #### VD25H #### [facility] [address] [place] [address] Glucose mass conc 152 mg/dL High 70-[address] Comment on above: Result Comment: Test performed by glucose meter. Results may be 10%-15% lower than serum/plasma values. (CLIA ID [id number]) Performed By: #### H EMDF, PT, BMP3M, PHOS3, MG3, CK3 #### [facility] [address] [place] [address] #### VD25H #### [facility] [address] [place] [address] Glucose mass conc 149 mg/dL High 70-100 [facility] Comment on above: Result Comment: Test performed by glucose meter. Results may be 10%-15% lower than serum/plasma values. (CLIA ID [id number]) Performed By: #### H EMDF, PT, BMP3M, PHOS3, MG3, CK3 #### [facility] [address] [place] [address] #### VD25H #### [facility] [address] [place] [address] Hemogram w/ Autodiffon 07-24 Erythrocyte distribution width Ratio (RBC) 13.7 % Normal 11.5-14.5 [facility] Comment on above: Performed By: #### H EMDF, PT, BMP3M, PHOS3, MG3, CK3 #### [facility] [address] #### VD25H #### [facility] [address] [place] [address] Hematocrit Volume Fraction (Bld) 31.4 % Low 40.0-52.0 [facility] Comment on above: Performed By: #### H EMDF, PT, BMP3M, PHOS3, MG3, CK3 #### [address] #### VD25H #### [facility] [address] [facility] [place] [address] Hemoglobin mass conc (Bld) 10.7 g/dL Low 13.0-18.0 [facility] Comment on above: Performed By: #### H EMDF, PT, BMP3M, PHOS3, MG3, CK3 #### [address] #### VD25H #### [facility] [address] [place] [address] MCH Entitic mass (RBC) 29.4 pg Normal 26.0-34.0 [facility] Comment on above: Performed By: #### H EMDF, PT, BMP3M, PHOS3, MG3, CK3 #### [address] #### VD25H #### [facility] [address] [place] [address] MCHC mass conc (RBC) 33.9 % Normal 32.0-36.0 [facility] Comment on above: Performed By: #### H EMDF, PT, BMP3M, PHOS3, MG3, CK3 #### [address] #### VD25H #### [facility] [address] [place] [address] MCV Entitic volume (RBC) 86.8 fL Normal 80.0-98.0 [facility] Comment on above: Performed By: #### H EMDF, PT, BMP3M, PHOS3, MG3, CK3 #### [address] #### VD25H #### [facility] [address] [place] [address] Platelet mean volume Entitic volume (Bld) 8.6 fL Normal 7.4-10.4 [facility] Comment on above: Performed By: #### H EMDF, PT, BMP3M, PHOS3, MG3, CK3 #### [facility] [address] [place] #### VD25H #### [facility] [address] [place] [address] Platelets #/vol (Bld) 304 10*3/uL Normal 140-440 [facility] Comment on above: Performed By: #### H EMDF, PT, BMP3M, PHOS3, MG3, CK3 #### [place] [address] [place] #### VD25H #### [facility] [address] [place] [address] RBC #/vol (Bld) 3.62 10*6/uL Low 4.40-5.90 [facility] Comment on above: Performed By: #### H EMDF, PT, BMP3M, PHOS3, MG3, CK3 #### [address] [place], [place] #### VD25H #### [facility] [address] [place] [address] WBC #/vol (Bld) 14.0 10*3/uL High 3.6-10.7 [facility] Comment on above: Performed By: #### H EMDF, PT, BMP3M, PHOS3, MG3, CK3 #### [place] [address] [place] #### VD25H #### [facility] [address] [place] [address] Magnesiumon 07-24-2018 Magnesium mass conc 2.2 mg/dL Normal 1.6-2.3 [facility] Comment on above: Performed By: #### H EMDF, PT, BMP3M, PHOS3, MG3, CK3 #### [address] #### VD25H #### [facility] [address] [place] [address] Manual Diffon 07-24-2018 Abs Baso Cnt 0.0 10*3/uL Normal 0.0-0.2 [facility] Comment on above: Performed By: #### H EMDF, PT, BMP3M, PHOS3, MG3, CK3 #### [facility] [address] [place], [place] #### VD25H #### [facility] [address] [place] [address] Abs Neutrophile Cnt 12.2 10*3/uL High 2.2-8.2 [facility] Comment on above: Performed By: #### H EMDF, PT, BMP3M, PHOS3, MG3, CK3 #### [address] #### VD25H #### [facility] [address] [place] [address] Eosinophils #/vol (Bld) 0.4 10*3/uL Normal 0.0-0.5 [facility] Comment on above: Performed By: #### H EMDF, PT, BMP3M, PHOS3, MG3, CK3 #### [address] #### VD25H #### [facility] [address] [place] [address] Eosinophils/100 WBC (Bld) 3 % Normal 1-6 [facility] Comment on above: Performed By: #### H EMDF, PT, BMP3M, PHOS3, MG3, CK3 #### [address] #### VD25H #### [facility] [address] [place] [address] Lymphocytes #/vol (Bld) 1.0 10*3/uL Low 1.1-4.5 [facility] Comment on above: Performed By: #### H EMDF, PT, BMP3M, PHOS3, MG3, CK3 #### [address] #### VD25H #### [facility] [address] [place] [address] Lymphocytes/100 WBC (Bld) 7 % Low 20-40 [facility] Comment on above: Performed By: #### H EMDF, PT, BMP3M, PHOS3, MG3, CK3 #### [place] [address] [address] [place] #### VD25H #### [facility] [address] [place] [address] Monocytes #/vol (Bld) 0.4 10*3/uL Normal 0.2-1.1 [facility] Comment on above: Performed By: #### H EMDF, PT, BMP3M, PHOS3, MG3, CK3 #### [address] #### VD25H #### [place] [address] [place] [address] Monocytes/100 WBC (Bld) 3 % Normal 2-10 S [facility] Comment on above: Performed By: #### H EMDF, PT, BMP3M, PHOS3, MG3, CK3 #### [address] #### VD25H #### [facility] [address] [place] [address] RBC morphology finding Nom (Bld) Normal Normal [facility] Comment on above: Performed By: #### H EMDF, PT, BMP3M, PHOS3, MG3, CK3 #### [address] #### VD25H #### [facility] [address] [place] [address] Seg Neutrophils 87 % High 40-80 [facility] Comment on above: Performed By: #### H EMDF, PT, BMP3M, PHOS3, MG3, CK3 #### [place] [address] [place] #### VD25H #### [place] [address] [place] [address] Bands 0 % Normal 0-3 [facility] Comment on above: Performed By: #### H EMDF, PT, BMP3M, PHOS3, MG3, CK3 #### [facility] [address] [place] #### VD25H #### [facility] [address] [place] [address] Basophils/100 WBC (Bld) 0 % Normal 0-2 [facility] Comment on above: Performed By: #### H EMDF, PT, BMP3M, PHOS3, MG3, CK3 #### [place] [address] [address] [place] #### VD25H #### [facility] [address] [place] [address] Cells counted 100 Normal [facility] Comment on above: Performed By: #### H EMDF, PT, BMP3M, PHOS3, MG3, CK3 #### [place] [address] [place] #### VD25H #### [facility] [address] [place] [address] Phosphoruson 07-24-2018 Phosphate mass conc 2.7 mg/dL Normal 2.5-4.5 [facility] Comment on above: Performed By: #### H EMDF, PT, BMP3M, PHOS3, MG3, CK3 #### [place] [address] [place] #### VD25H #### [facility] [address] [place] [address] Triglycerideon 07-24-2018 Triglyceride mass conc 78 mg/dL Normal <150 [facility] Comment on above: Performed By: #### H EMDF, PT, BMP3M, PHOS3, MG3, CK3 #### [address] [place] #### VD25H #### [facility] [address] [place] [address] Urea Nitrogen,Ur Randomon Urea nitrogen mass conc 1199 mg/dL Normal No Range S [facility] Comment on above: Performed By: #### H EMDF, PT, BMP3M, PHOS3, MG3, CK3 #### [facility] [address] [place] #### VD25H #### [facility] [address] [place] [address] Add on test from HISon 07-23 Add on test from HIS Accepted Normal [facility] Comment on above: Result Comment: Spec imen available & acceptable for analysis. Performed By: #### H EMDF, PT, BMP3M, PHOS3, MG3, CK3 #### [place] [address] [place] #### VD25H #### [facility] [address] [place] [address] Arterial Blood Gaseson 07-23 CO2 molar conc 23.0 mmol/L Normal 23.0-27.0 [facility] Comment on above: Performed By: #### H EMDF, PT, BMP3M, PHOS3, MG3, CK3 #### [place] [address] [place] #### VD25H #### [facility] [address] [place] [address] HCO3 molar conc (Bld) 22.0 mmol/L Normal 21.0-25.0 [facility] Comment on above: Performed By: #### H EMDF, PT, BMP3M, PHOS3, MG3, CK3 #### [place] [address] [place] #### VD25H #### [facility] [address] [place] [address] Hemoglobin mass conc (Bld) 10.9 g/dL Normal ScreenOnly [facility] Comment on above: Performed By: #### H EMDF, PT, BMP3M, PHOS3, MG3, CK3 #### [place] [address] [place] #### VD25H #### [facility] [address] [place] [address] Oxygen ppres (Bld) 102.4 mm[Hg] High 80.0-100.0 [facility] Comment on above: Performed By: #### H EMDF, PT, BMP3M, PHOS3, MG3, CK3 #### [facility] [address] [facility] #### VD25H #### [facility] [address] [place] [address] Oxygen saturation in Blood 97.7 % Normal 95.0-100.0 [facility] Comment on above: Performed By: #### H EMDF, PT, BMP3M, PHOS3, MG3, CK3 #### [address] [place] #### VD25H #### [facility] [address] [place] [address] pCO2 34.4 mm[Hg] Low 35.0-45.0 [facility] Comment on above: Performed By: #### H EMDF, PT, BMP3M, PHOS3, MG3, CK3 #### [place] [address] [address] [facility] #### VD25H #### [facility] [address] [place] [address] pH (Bld) 7.423 Normal 7.350-7.450 [facility] Comment on above: Performed By: #### H EMDF, PT, BMP3M, PHOS3, MG3, CK3 #### [address] [facility] #### VD25H #### [facility] [address] [place] [address] Std Base Excess -1.9 mmol/L Normal -3.0-3.0 [facility] Comment on above: Performed By: #### H EMDF, PT, BMP3M, PHOS3, MG3, CK3 #### [place] [address] [address] [facility] #### VD25H #### [facility] [address] [place] [address] FIO2 .30 Normal [facility] Comment on above: Performed By: #### H EMDF, PT, BMP3M, PHOS3, MG3, CK3 #### [facility] [address] [place] [address] #### VD25H #### [facility] [address] [place] [address] Basic Metabolic Panelon 06-30 Anion gap molar conc 12 Normal [facility] Comment on above: Performed By: #### H EMDF, PT, BMP3M, PHOS3, MG3, CK3 #### [place] [address] [place] #### VD25H #### [facility] [address] [place] [address] Calcium mass conc 7.5 mg/dL Low 8.4-10.4 [facility] Comment on above: Performed By: #### H EMDF, PT, BMP3M, PHOS3, MG3, CK3 #### [place] [address] [place] #### VD25H #### [facility] [address] [place] [address] CO2 molar conc 23 mmol/L Normal 22-30 [facility] Comment on above: Performed By: #### H EMDF, PT, BMP3M, PHOS3, MG3, CK3 #### [facility] [address] [place] #### VD25H #### [facility] [address] [place] [address] Glucose mass conc 148 mg/dL High 70-100 [facility] Comment on above: Performed By: #### H EMDF, PT, BMP3M, PHOS3, MG3, CK3 #### [place] [address] [place] #### VD25H #### [facility] [address] [place] [address] Urea nitrogen mass conc 82 mg/dL High 7-20 S [facility] Comment on above: Performed By: #### H EMDF, PT, BMP3M, PHOS3, MG3, CK3 #### [facility] [address] [place] [address] #### VD25H #### [facility] [address] [place] [address] Creatinine mass conc 3.01 mg/dL High 0.52-1.25 [facility] Comment on above: Performed By: #### H EMDF, PT, BMP3M, PHOS3, MG3, CK3 #### [address] #### VD25H #### [facility] [address] [place] [address] GFR/1.73 sq M predicted among blacks MDRD vol rate/area (S/P/Bld) 25.8 mL/min/{1.73_m2} Normal >60 [facility] Comment on above: Performed By: #### H EMDF, PT, BMP3M, PHOS3, MG3, CK3 #### [address] #### VD25H #### [facility] [address] [place] [address] GFR/1.73 sq M predicted among non-blacks MDRD vol rate/area (S/P/Bld) 21.3 mL/min/{1.73_m2} Normal >60 [facility] Comment on above: Result Comment: Sour ce- MDRD equation with creatinine calibration to IDMS(NKDEP) eGFR not recommended for drug dose adjustment Performed By: #### H EMDF, PT, BMP3M, PHOS3, MG3, CK3 #### [address] [address] #### VD25H #### [facility] [address] [place] [address] Chloride molar conc 106 mmol/L Normal 98-107 [facility] Comment on above: Performed By: #### H EMDF, PT, BMP3M, PHOS3, MG3, CK3 #### [facility] [address] [place] [address] #### VD25H #### [facility] [address] [place] [address] Potassium molar conc 4.2 mmol/L Normal 3.5-5.1 [facility] Comment on above: Performed By: #### H EMDF, PT, BMP3M, PHOS3, MG3, CK3 #### [facility] [address] [place] [address] #### VD25H #### [facility] [address] [place] [address] Sodium molar conc 141 mmol/L Normal 135-145 [facility] Comment on above: Performed By: #### H EMDF, PT, BMP3M, PHOS3, MG3, CK3 #### [facility] [address] [place] #### VD25H #### [facility] [address] [place] [address] CR Chest Portableon 07-24-19 19 CR Chest Portable Patient Name: KATHYA HOOPER Diagnostic Radiology Exam Date/Time 07/23/2018 07:06:03 EDT Exam CR Chest Portable Ordering Physician MARIA EUGENIA PEREZ Accession Number [id number] CPT4 Codes 01912 () Reason For Exam ETT placement Report [...] Transcribed Date and Time: 07/23/2018 7:58 Normal [facility] Creatinine, Ur Randomon 06-30 Creatinine, Ur Random 56.8 mg/dL Normal No Range [facility] Comment on above: Performed By: #### H EMDF, PT, BMP3M, PHOS3, MG3, CK3 #### [facility] [address] [place] [address] #### VD25H #### [facility] [address] [place] [address] Glucose,Bedsideon 07-23-2018 Glucose mass conc 116 mg/dL High 70-[address] [facility] Comment on above: Result Comment: Test performed by glucose meter. Results may be 10%-15% lower than serum/plasma values. (CLIA ID [id number]) Performed By: #### H EMDF, PT, BMP3M, PHOS3, MG3, CK3 #### [facility] [address] [place] [address] #### VD25H #### [facility] [employer] [facility] [address] [place] [address] Glucose mass conc 139 mg/dL High 70-[address] [facility] Comment on above: Result Comment: Test performed by glucose meter. Results may be 10%-15% lower than serum/plasma values. (CLIA ID [id number]) Performed By: #### H EMDF, PT, BMP3M, PHOS3, MG3, CK3 #### [facility] [address] [place] [address] #### VD25H #### [facility] [employer] [facility] [address] [place] [address] Glucose mass conc 140 mg/dL High 70-[address] [facility] Comment on above: Result Comment: Test performed by glucose meter. Results may be 10%-15% lower than serum/plasma values. (CLIA ID [id number]) Performed By: #### H EMDF, PT, BMP3M, PHOS3, MG3, CK3 #### [address] #### VD25H #### [facility] [address] [place] [address] Glucose mass conc 140 mg/dL High 70-100 [facility] Comment on above: Result Comment: Test performed by glucose meter. Results may be 10%-15% lower than serum/plasma values. (CLIA ID [id number]) Performed By: #### H EMDF, PT, BMP3M, PHOS3, MG3, CK3 #### [address] #### VD25H #### [place] [address] [place] [address] Hemogram w/ Autodiffon 07-23 Abs Baso Cnt 0.0 10*3/uL Normal 0.0-0.2 [facility] Comment on above: Performed By: #### H EMDF, PT, BMP3M, PHOS3, MG3, CK3 #### [address] #### VD25H #### [place] [address] [place] [address] Abs Neutrophile Cnt 16.2 10*3/uL High 1.8-7.0 [facility] Comment on above: Performed By: #### H EMDF, PT, BMP3M, PHOS3, MG3, CK3 #### [address] #### VD25H #### [place] [address] [place] [address] Basophils/100 WBC (Bld) 0.3 % Normal 0.0-2.0 [facility] Comment on above: Performed By: #### H EMDF, PT, BMP3M, PHOS3, MG3, CK3 #### [address] #### VD25H #### [place] [address] [place] [address] Eosinophils #/vol (Bld) 0.2 10*3/uL Normal 0.0-0.5 [facility] Comment on above: Performed By: #### H EMDF, PT, BMP3M, PHOS3, MG3, CK3 #### [address] #### VD25H #### [facility] [address] [place] [address] Eosinophils/100 WBC (Bld) 1.2 % Normal 1.0-6.0 [facility] Comment on above: Performed By: #### H EMDF, PT, BMP3M, PHOS3, MG3, CK3 #### [address] #### VD25H #### [place] [address] [place] [address] Erythrocyte distribution width Ratio (RBC) 13.9 % Normal 11.5-14.5 [facility] Comment on above: Performed By: #### H EMDF, PT, BMP3M, PHOS3, MG3, CK3 #### [address] #### VD25H #### [facility] [address] [place] [address] Granulocytes/100 WBC (Bld) 86.8 % High 40.0-80.0 [facility] Comment on above: Performed By: #### H EMDF, PT, BMP3M, PHOS3, MG3, CK3 #### [address] #### VD25H #### [facility] [address] [place] [address] Hematocrit Volume Fraction (Bld) 26.7 % Low 40.0-52.0 [facility] Comment on above: Performed By: #### H EMDF, PT, BMP3M, PHOS3, MG3, CK3 #### [address] #### VD25H #### [facility] [address] [place] [address] Hemoglobin mass conc (Bld) 8.9 g/dL Low 13.0-18.0 [facility] Comment on above: Performed By: #### H EMDF, PT, BMP3M, PHOS3, MG3, CK3 #### [address] #### VD25H #### [facility] [address] [place] [address] Lymphocytes #/vol (Bld) 1.2 10*3/uL Normal 1.0-4.3 [facility] Comment on above: Performed By: #### H EMDF, PT, BMP3M, PHOS3, MG3, CK3 #### [address] #### VD25H #### [place] [address] [place] [address] Lymphocytes/100 WBC (Bld) 6.6 % Low 20.0-40.0 [facility] Comment on above: Performed By: #### H EMDF, PT, BMP3M, PHOS3, MG3, CK3 #### [address] #### VD25H #### [place] [address] [place] [address] MCH Entitic mass (RBC) 29.5 pg Normal 26.0-34.0 [facility] Comment on above: Performed By: #### H EMDF, PT, BMP3M, PHOS3, MG3, CK3 #### [address] #### VD25H #### [facility] [address] [place] [address] MCHC mass conc (RBC) 33.5 % Normal 32.0-36.0 [facility] Comment on above: Performed By: #### H EMDF, PT, BMP3M, PHOS3, MG3, CK3 #### [address] #### VD25H #### [facility] [address] [place] [address] MCV Entitic volume (RBC) 87.9 fL Normal 80.0-98.0 [facility] Comment on above: Performed By: #### H EMDF, PT, BMP3M, PHOS3, MG3, CK3 #### [place] [address] [place] #### VD25H #### [facility] [address] [place] [address] Monocytes #/vol (Bld) 1.0 10*3/uL High 0.0-0.8 [facility] Comment on above: Performed By: #### H EMDF, PT, BMP3M, PHOS3, MG3, CK3 #### [place] [address] [place], [place] #### VD25H #### [facility] [address] [place] [address] Monocytes/100 WBC (Bld) 5.1 % Normal 2.0-10.0 [facility] Comment on above: Performed By: #### H EMDF, PT, BMP3M, PHOS3, MG3, CK3 #### [place] [address] [place] #### VD25H #### [facility] [address] [place] [address] Platelet mean volume Entitic volume (Bld) 8.2 fL Normal 7.4-10.4 [facility] Comment on above: Performed By: #### H EMDF, PT, BMP3M, PHOS3, MG3, CK3 #### [address] [place] #### VD25H #### [facility] [address] [place] [address] Platelets #/vol (Bld) 294 10*3/uL Normal 140-440 [facility] Comment on above: Performed By: #### H EMDF, PT, BMP3M, PHOS3, MG3, CK3 #### [facility] [address] [place] #### VD25H #### [facility] [address] [place] [address] RBC #/vol (Bld) 3.03 10*6/uL Low 4.40-5.90 [facility] Comment on above: Performed By: #### H EMDF, PT, BMP3M, PHOS3, MG3, CK3 #### [place] [address] [place] #### VD25H #### [facility] [address] [place] [address] WBC #/vol (Bld) 18.7 10*3/uL High 3.6-10.7 [facility] Comment on above: Performed By: #### H EMDF, PT, BMP3M, PHOS3, MG3, CK3 #### [place] [address] [place] #### VD25H #### [facility] [address] [place] [address] LDHon 07-23-2018 LDH 342 U/L High 65-175 [facility] Comment on above: Performed By: #### H EMDF, PT, BMP3M, PHOS3, MG3, CK3 #### [address] #### VD25H #### [facility] [address] [place] [address] Magnesiumon 07-23-2018 Magnesium mass conc 2.5 mg/dL High 1.6-2.3 [facility] Comment on above: Performed By: #### H EMDF, PT, BMP3M, PHOS3, MG3, CK3 #### [address] [place] #### VD25H #### [facility] [address] [place] [address] Phosphoruson 07-23-2018 Phosphate mass conc 4.5 mg/dL Normal 2.5-4.5 [facility] Comment on above: Performed By: #### H EMDF, PT, BMP3M, PHOS3, MG3, CK3 #### [facility] [address] [place] #### VD25H #### [facility] [address] [place] [address] Protein, Total Body Fluidon 07-23-2018 Protein,Total-Body Fld 2.7 g/dL Normal No Range [facility] Comment on above: Performed By: #### H EMDF, PT, BMP3M, PHOS3, MG3, CK3 #### [place] [address] [place] #### VD25H #### [facility] [address] [place] [address] Triglycerideon 07-23-2018 Triglyceride mass conc 63 mg/dL Normal <150 [facility] Comment on above: Performed By: #### H EMDF, PT, BMP3M, PHOS3, MG3, CK3 #### [place] [address] [place] #### VD25H #### [facility] [address] [place] [address] Urea Nitrogen,Ur Randomon Urea nitrogen mass conc 677 mg/dL Normal No Range [facility] Comment on above: Performed By: #### H EMDF, PT, BMP3M, PHOS3, MG3, CK3 #### [facility] [address] [place] #### VD25H #### [facility] [address] [place] [address] Urinalysis,Macroon 9 Appearance Nom (U) cloudy Normal Clear [facility] Comment on above: Performed By: #### H EMDF, PT, BMP3M, PHOS3, MG3, CK3 #### [place] [address] [place] #### VD25H #### [facility] [address] [place] [address] Bilirubin,Ur Negative Normal Negative [facility] Comment on above: Performed By: #### H EMDF, PT, BMP3M, PHOS3, MG3, CK3 #### [place] [address] [place] #### VD25H #### [facility] [address] [place] [address] Color Nom (U) dk.yel Normal Lt. Yellow [facility] Comment on above: Performed By: #### H EMDF, PT, BMP3M, PHOS3, MG3, CK3 #### [place] [address] [place] #### VD25H #### [facility] [address] [place] [address] Glucose Ql (U) NORM Normal Negative [facility] Comment on above: Performed By: #### H EMDF, PT, BMP3M, PHOS3, MG3, CK3 #### [place] [address] [place] #### VD25H #### [facility] [address] [place] [address] Ketone,Urine Negative Normal Negative [facility] Comment on above: Performed By: #### H EMDF, PT, BMP3M, PHOS3, MG3, CK3 #### [place] [address] [place] #### VD25H #### [facility] [address] [place] [address] Nitrite Ql (U) Negative Normal Negative [facility] Comment on above: Performed By: #### H EMDF, PT, BMP3M, PHOS3, MG3, CK3 #### [place] [address] [place] #### VD25H #### [facility] [address] [place] [address] Occult Blood,Ur 250 {RBC}/uL Normal Negative [facility] Comment on above: Performed By: #### H EMDF, PT, BMP3M, PHOS3, MG3, CK3 #### [facility] [address] [place] #### VD25H #### [facility] [address] [place] [address] pH (U) 5.0 Normal 5.0-8.0 [facility] Comment on above: Performed By: #### H EMDF, PT, BMP3M, PHOS3, MG3, CK3 #### [place] [address] [facility] #### VD25H #### [facility] [address] [place] [address] Protein mass conc (U) 75 mg/dL Normal Negative [facility] Comment on above: Performed By: #### H EMDF, PT, BMP3M, PHOS3, MG3, CK3 #### [address] [facility] #### VD25H #### [facility] [address] [place] [address] Specific [place],Urine 1.015 Normal 1.005-1.030 [facility] Comment on above: Performed By: #### H EMDF, PT, BMP3M, PHOS3, MG3, CK3 #### [place] [address] [facility] #### VD25H #### [facility] [address] [place] [address] Urobilinogen Qn (U) NORM Normal 0-1 [facility] Comment on above: Performed By: #### H EMDF, PT, BMP3M, PHOS3, MG3, CK3 #### [place] [address] [facility] #### VD25H #### [facility] [address] [place] [address] WBC #/vol (Bld) 2 + Normal Negative [facility] Comment on above: Performed By: #### H EMDF, PT, BMP3M, PHOS3, MG3, CK3 #### [place] [address] [facility] #### VD25H #### [facility] [address] [place] [address] Urinalysis,Microscopicon Bacteria LM.HPF #/area (Urine sed) Moderate (6-50) Normal Negative [facility] Comment on above: Performed By: #### H EMDF, PT, BMP3M, PHOS3, MG3, CK3 #### [address] #### VD25H #### [facility] [address] [place] [address] Epithelial cells LM.HPF #/area (Urine sed) 0 - 2 Normal 3-5 [facility] Comment on above: Performed By: #### H EMDF, PT, BMP3M, PHOS3, MG3, CK3 #### [address] #### VD25H #### [place] [address] [place] [address] RBC LM.HPF #/area (Urine sed) /[HPF] Normal 0-2 [facility] Comment on above: Performed By: #### H EMDF, PT, BMP3M, PHOS3, MG3, CK3 #### [address] #### VD25H #### [facility] [address] [place] [address] Volume,Urine 8-12 ml Normal [facility] Comment on above: Performed By: #### H EMDF, PT, BMP3M, PHOS3, MG3, CK3 #### [address] #### VD25H #### [facility] [address] [place] [address] WBC LM.HPF #/area (Urine sed) 26 - 50 Normal 0-5 [facility] Comment on above: Performed By: #### H EMDF, PT, BMP3M, PHOS3, MG3, CK3 #### [address] #### VD25H #### [facility] [address] [place] [address] VL Venous Duplex US Lower Ex t Bilateralon 07-23-2018 VL Venous Duplex US Lower Ext Bilateral Patient Name: KATHYA HOOPER Ultrasound Exam Date/Time 07/23/2018 11:16:11 EDT Exam VL Venous Duplex US Lower Ext Bilateral Ordering Physician ETIENNE MARTÍNEZ JULIE Accession Number [id number] CPT4 Codes 68312 () Reason For Exam edema Report [facility]ASC[facility] --- Lower Extremity Venous Duplex Report Patient Name: Kathya Hooper : 1955 Study Date: 07/23/2018 [place] (63yrs) Age: 63 Account: [id number] Gender: M Loc: T209 BP: Ordering: Yesenia Martínez Technologist: Ordering Physician: Yesenia Martínez Human Service Worker: León Chaidez RVT [facility] Interpreting Physician: Vamsi York MD --- Location: [facility] --- INDICATIONS: Edema. bilateral calf edema. --- [...] performed. The images were obtained using a [employer] E9 vascular ultrasound machine. --- VENOUS FLOW [...] --+ Electronically signed by: Vamsi York MD [id number] Final Dictated: 07/23/2018 3:00 pm Dictating Physician: VAMSI YORK Signed Date and Time: 07/23/2018 3:00 pm Signed by: VAMSI YORK Normal [facility] Vancomycin Troughon 07-24-19 19 Vancomycin Trough 10.8 ug/mL Low 15.0-20.0 [facility] Comment on above: Result Comment: . Performed By: #### H EMDF, PT, BMP3M, PHOS3, MG3, CK3 #### [facility] [address] [facility] #### VD25H #### [facility] [address] [place] [address] Basic Metabolic Panelon 03-2 Calcium mass conc 7.9 mg/dL Low 8.4-10.4 [facility] Comment on above: Performed By: #### H EMDF, PT, BMP3M, PHOS3, MG3, CK3 #### [place] [address] [address] [facility] #### VD25H #### [facility] [address] [place] [address] Anion gap molar conc 11 Normal [facility] Comment on above: Performed By: #### H EMDF, PT, BMP3M, PHOS3, MG3, CK3 #### [place] [address] [facility] #### VD25H #### [facility] [address] [place] [address] CO2 molar conc 28 mmol/L Normal 22-30 [facility] Comment on above: Performed By: #### H EMDF, PT, BMP3M, PHOS3, MG3, CK3 #### [place] [address] [facility] [place] #### VD25H #### [facility] [address] [place] [address] Glucose mass conc 134 mg/dL High 70-100 [facility] Comment on above: Performed By: #### H EMDF, PT, BMP3M, PHOS3, MG3, CK3 #### [place] [address] [facility] #### VD25H #### [facility] [address] [place] [address] Urea nitrogen mass conc 51 mg/dL High 7-20 S [facility] Comment on above: Performed By: #### H EMDF, PT, BMP3M, PHOS3, MG3, CK3 #### [facility] [address] [place] #### VD25H #### [facility] [address] [place] [address] Creatinine mass conc 1.57 mg/dL High 0.52-1.25 [facility] Comment on above: Performed By: #### H EMDF, PT, BMP3M, PHOS3, MG3, CK3 #### [place] [address] [place] #### VD25H #### [facility] [address] [place] [address] GFR/1.73 sq M predicted among blacks MDRD vol rate/area (S/P/Bld) 54.6 mL/min/{1.73_m2} Normal >60 [facility] Comment on above: Performed By: #### H EMDF, PT, BMP3M, PHOS3, MG3, CK3 #### [address] #### VD25H #### [facility] [address] [place] [address] GFR/1.73 sq M predicted among non-blacks MDRD vol rate/area (S/P/Bld) 45.1 mL/min/{1.73_m2} Normal >60 [facility] Comment on above: Result Comment: Sour ce- MDRD equation with creatinine calibration to IDMS(NKDEP) eGFR not recommended for drug dose adjustment Performed By: #### H EMDF, PT, BMP3M, PHOS3, MG3, CK3 #### [address] #### VD25H #### [facility] [address] [place] [address] Chloride molar conc 107 mmol/L Normal 98-107 [facility] Comment on above: Performed By: #### H EMDF, PT, BMP3M, PHOS3, MG3, CK3 #### [address] #### VD25H #### [facility] [address] [place] [address] Potassium molar conc 3.8 mmol/L Normal 3.5-5.1 [facility] Comment on above: Performed By: #### H EMDF, PT, BMP3M, PHOS3, MG3, CK3 #### [facility] [address] [facility] [place] #### VD25H #### [facility] [address] [place] [address] Sodium molar conc 146 mmol/L High 135-145 [facility] Comment on above: Performed By: #### H EMDF, PT, BMP3M, PHOS3, MG3, CK3 #### [facility] [address] [facility] [place] [place] #### VD25H #### [facility] [address] [place] [address] CR Abdomen APon 07-22-2018 CR Abdomen AP Patient Name: KATHYA HOOPER Diagnostic Radiology Exam Date/Time 07/22/2018 08:02:02 EDT Exam CR Abdomen AP Ordering Physician MARIA EUGENIA PEREZ Accession Number [id number] CPT4 Codes 02486 () Reason For Exam ileus Report Supine [...] Transcribed Date and Time: 07/22/2018 9:28 Normal [facility] CR Chest Portableon 07-23-19 CR Chest Portable Patient Name: KATHYA HOOPER Diagnostic Radiology Exam Date/Time 07/22/2018 16:32:15 EDT Exam CR Chest Portable Ordering Physician MD N[facility], [facility] Accession Number [id number] CPT4 Codes 18869 () Reason For Exam Thoracentesis Report Clinical [...] Transcribed Date and Time: 07/22/2018 6:46 Normal [facility] CR Chest Portable Patient Name: KATHYA HOOPER Diagnostic Radiology Exam Date/Time 07/22/2018 06:49:22 EDT Exam CR Chest Portable Ordering Physician MARIA EUGENIA PEREZ Accession Number [id number] CPT4 Codes 37912 () Reason For Exam ETT placement Report [...] Transcribed Date and Time: 07/22/2018 9:31 Normal [facility] CULTURE AND STAIN - FLUIDon 07-22-2018 CULTURE AND STAIN - FLUID CULTURE & STAIN - FLUID --> Status: F No growth at 5 days. STAIN GRAM --> Status: F Moderate polymorphonuclear cells/lpf. Moderate mononuclear cells/lpf No organisms seen. Cytocentrifugation performed. Moderate mononuclear cells/lpf No organisms seen. Cytocentrifugation performed. Normal [facility] Comment on above: Order Comment: Speci men Source Comment:Body Fluid Performed By: #### H EMDF, PT, BMP3M, PHOS3, MG3, CK3 #### [facility] [address] [place] [address] #### VD25H #### [facility] [address] [place] [address] Cell Count,Body Fluidon 06-30 Nucleated Cells 259 {cells}/uL Normal [facility] Comment on above: Performed By: #### H EMDF, PT, BMP3M, PHOS3, MG3, CK3 #### [facility] [address] [place] [address] #### VD25H #### [facility] [address] [place] [address] RBC Count Body Fld 123 {RBC}/uL Normal [facility] Comment on above: Performed By: #### H EMDF, PT, BMP3M, PHOS3, MG3, CK3 #### [facility] [address] [facility] #### VD25H #### [facility] [address] [place] [address] Fluid Type thoracentesis Normal [facility] Comment on above: Performed By: #### H EMDF, PT, BMP3M, PHOS3, MG3, CK3 #### [facility] [address] [facility] [place] #### VD25H #### [facility] [address] [place] [address] Glucose, Body Fluidon 2018 Fluid Type Thoracentesis Normal [facility] Comment on above: Performed By: #### H EMDF, PT, BMP3M, PHOS3, MG3, CK3 #### [place] [address] [facility] [place] #### VD25H #### [facility] [address] [place] [address] Glucose, Body Fluid 136 mg/dL Normal No Range [facility] Comment on above: Performed By: #### H EMDF, PT, BMP3M, PHOS3, MG3, CK3 #### [place] [address] [facility] [place] #### VD25H #### [facility] [address] [place] [address] Glucose,Bedsideon 07-22-2018 Glucose mass conc 142 mg/dL High 70-100 [facility] Comment on above: Result Comment: Test performed by glucose meter. Results may be 10%-15% lower than serum/plasma values. (CLIA ID [id number]) Performed By: #### H EMDF, PT, BMP3M, PHOS3, MG3, CK3 #### [place] [address] [facility] [place] #### VD25H #### [facility] [address] [place] [address] Glucose mass conc 127 mg/dL High 70-100 [facility] Comment on above: Result Comment: Test performed by glucose meter. Results may be 10%-15% lower than serum/plasma values. (CLIA ID [id number]) Performed By: #### H EMDF, PT, BMP3M, PHOS3, MG3, CK3 #### [facility] [address] [place] [address] #### VD25H #### [facility] [address] [place] [address] Glucose mass conc 139 mg/dL High 70-100 [facility] Comment on above: Result Comment: Test performed by glucose meter. Results may be 10%-15% lower than serum/plasma values. (CLIA ID [id number]) Performed By: #### H EMDF, PT, BMP3M, PHOS3, MG3, CK3 #### [facility] [address] [place] [address] #### VD25H #### [facility] [address] [place] [address] Glucose mass conc 124 mg/dL High 70-[address] [facility] Comment on above: Result Comment: Test performed by glucose meter. Results may be 10%-15% lower than serum/plasma values. (CLIA ID [id number]) Performed By: #### H EMDF, PT, BMP3M, PHOS3, MG3, CK3 #### [facility] [address] [place] [phone] #### VD25H #### [facility] [address] [place] [address] Glucose mass conc 128 mg/dL High 70-[address] [facility] Comment on above: Result Comment: Test performed by glucose meter. Results may be 10%-15% lower than serum/plasma values. (CLIA ID [id number]) Performed By: #### H EMDF, PT, BMP3M, PHOS3, MG3, CK3 #### [facility] [address] [place] [id number] #### VD25H #### [facility] [address] [place] [address] Glucose mass conc 113 mg/dL High 70-100 [facility] Comment on above: Result Comment: Test performed by glucose meter. Results may be 10%-15% lower than serum/plasma values. (CLIA ID [id number]) Performed By: #### H EMDF, PT, BMP3M, PHOS3, MG3, CK3 #### [facility] [address] [place], [place] #### VD25H #### [facility] [address] [place] [address] Hemogram w/ Autodiffon 07-22 Abs Baso Cnt 0.1 10*3/uL Normal 0.0-0.2 [facility] Comment on above: Performed By: #### H EMDF, PT, BMP3M, PHOS3, MG3, CK3 #### [address] #### VD25H #### [facility] [address] [place] [address] Abs Neutrophile Cnt 15.2 10*3/uL High 1.8-7.0 [facility] Comment on above: Performed By: #### H EMDF, PT, BMP3M, PHOS3, MG3, CK3 #### [address] #### VD25H #### [facility] [address] [place] [address] Basophils/100 WBC (Bld) 0.6 % Normal 0.0-2.0 [facility] Comment on above: Performed By: #### H EMDF, PT, BMP3M, PHOS3, MG3, CK3 #### [address] #### VD25H #### [facility] [address] [place] [address] Eosinophils #/vol (Bld) 0.2 10*3/uL Normal 0.0-0.5 [facility] Comment on above: Performed By: #### H EMDF, PT, BMP3M, PHOS3, MG3, CK3 #### [facility] [address] [place], [place] #### VD25H #### [facility] [address] [place] [address] Eosinophils/100 WBC (Bld) 0.9 % Low 1.0-6.0 [facility] Comment on above: Performed By: #### H EMDF, PT, BMP3M, PHOS3, MG3, CK3 #### [address] [place], [place] #### VD25H #### [facility] [address] [place] [address] Erythrocyte distribution width Ratio (RBC) 13.9 % Normal 11.5-14.5 [facility] Comment on above: Performed By: #### H EMDF, PT, BMP3M, PHOS3, MG3, CK3 #### [address] #### VD25H #### [facility] [address] [place] [address] Granulocytes/100 WBC (Bld) 88.8 % High 40.0-80.0 [facility] Comment on above: Performed By: #### H EMDF, PT, BMP3M, PHOS3, MG3, CK3 #### [address] #### VD25H #### [facility] [address] [place] [address] Hematocrit Volume Fraction (Bld) 31.6 % Low 40.0-52.0 [facility] Comment on above: Performed By: #### H EMDF, PT, BMP3M, PHOS3, MG3, CK3 #### [address] #### VD25H #### [facility] [address] [place] [address] Hemoglobin mass conc (Bld) 10.9 g/dL Low 13.0-18.0 [facility] Comment on above: Performed By: #### H EMDF, PT, BMP3M, PHOS3, MG3, CK3 #### [facility] [address] [place] #### VD25H #### [facility] [address] [place] [address] Lymphocytes #/vol (Bld) 1.1 10*3/uL Normal 1.0-4.3 [facility] Comment on above: Performed By: #### H EMDF, PT, BMP3M, PHOS3, MG3, CK3 #### [address] [address] [place] #### VD25H #### [facility] [address] [place] [address] Lymphocytes/100 WBC (Bld) 6.2 % Low 20.0-40.0 [facility] Comment on above: Performed By: #### H EMDF, PT, BMP3M, PHOS3, MG3, CK3 #### [address] [address] [place] [place] #### VD25H #### [facility] [address] [place] [address] MCH Entitic mass (RBC) 31.1 pg Normal 26.0-34.0 [facility] Comment on above: Performed By: #### H EMDF, PT, BMP3M, PHOS3, MG3, CK3 #### [address] [address] [place], [place] #### VD25H #### [facility] [address] [place] [address] MCHC mass conc (RBC) 34.6 % Normal 32.0-36.0 [facility] Comment on above: Performed By: #### H EMDF, PT, BMP3M, PHOS3, MG3, CK3 #### [address] #### VD25H #### [facility] [address] [place] [address] MCV Entitic volume (RBC) 89.9 fL Normal 80.0-98.0 [facility] Comment on above: Performed By: #### H EMDF, PT, BMP3M, PHOS3, MG3, CK3 #### [address] [place] #### VD25H #### [facility] [address] [place] [address] Monocytes #/vol (Bld) 0.6 10*3/uL Normal 0.0-0.8 [facility] Comment on above: Performed By: #### H EMDF, PT, BMP3M, PHOS3, MG3, CK3 #### [address] #### VD25H #### [facility] [address] [place] [address] Monocytes/100 WBC (Bld) 3.5 % Normal 2.0-10.0 [facility] Comment on above: Performed By: #### H EMDF, PT, BMP3M, PHOS3, MG3, CK3 #### [address] #### VD25H #### [facility] [address] [place] [address] Platelet mean volume Entitic volume (Bld) 7.9 fL Normal 7.4-10.4 [facility] Comment on above: Performed By: #### H EMDF, PT, BMP3M, PHOS3, MG3, CK3 #### [address] #### VD25H #### [facility] [address] [place] [address] Platelets #/vol (Bld) 299 10*3/uL Normal 140-440 [facility] Comment on above: Performed By: #### H EMDF, PT, BMP3M, PHOS3, MG3, CK3 #### [address] #### VD25H #### [facility] [address] [place] [address] RBC #/vol (Bld) 3.52 10*6/uL Low 4.40-5.90 [facility] Comment on above: Performed By: #### H EMDF, PT, BMP3M, PHOS3, MG3, CK3 #### [address] #### VD25H #### [facility] [address] [facility] [place] [address] WBC #/vol (Bld) 17.1 10*3/uL High 3.6-10.7 [facility] Comment on above: Performed By: #### H EMDF, PT, BMP3M, PHOS3, MG3, CK3 #### [address] #### VD25H #### [address] [facility] [place] [address] LDH, Body Fluidon 07-22-2018 LDH, Body Fluid 232 U/L Normal No Range [facility] Comment on above: Performed By: #### H EMDF, PT, BMP3M, PHOS3, MG3, CK3 #### [address] #### VD25H #### [facility] [address] [facility] [place] [place] [address] Magnesiumon 07-22-2018 Magnesium mass conc 2.6 mg/dL High 1.6-2.3 [facility] Comment on above: Performed By: #### H EMDF, PT, BMP3M, PHOS3, MG3, CK3 #### [address] #### VD25H #### [facility] [address] [facility] [place] [address] Medical Cytologyon 9 Medical Cytology [facility] [id number] [facility] LABORATORY MEDICINE [address] [facility] [place] [address] FINAL MEDICAL CYTOLOGY REPORT NAME: KATHYA HOOPER : 1955 63 Y M BILLING NO.: [id number] LOCATION: 1T2I T2 INPAT T209 PROCEDURE 07/22/2018 [...] characteristics determined by the clinical laboratories of [facility]. They have not been cleared by [...] [place] [facility] [place] [address] [place] [address]. DEPARTMENT OF PATHOLOGY AND LABORATORY MEDICINE [place], [place] Normal [facility] Phosphoruson 07-22-2018 Phosphate mass conc 4.6 mg/dL High 2.5-4.5 [facility] Comment on above: Performed By: #### H EMDF, PT, BMP3M, PHOS3, MG3, CK3 #### [address] #### VD25H #### [facility] [address] [place] [address] Procalcitoninon 07-22-2018 Protein mass conc 0.27 ng/mL Abnormal <0.10 [facility] Comment on above: Result Comment: (Cor rect ref.range is <0.09 ng/mL) Test performed: [place], [place]. Performed By: #### H EMDF, PT, BMP3M, PHOS3, MG3, CK3 #### [address] #### VD25H #### [facility] [address] [place] [address] Interpretation See Below Normal [facility] Comment on above: Result Comment: PCT <0.50 = Low risk of severe sepsis and/or septic shock. PCT >2.00 = High risk of severe sepsis and/or septic shock. Performed By: #### H EMDF, PT, BMP3M, PHOS3, MG3, CK3 #### [address] #### VD25H #### [facility] [address] [place] [address] STAIN ACID-FASTon 07-22-2018 STAIN ACID-FAST STAIN ACID-FAST --> Status: F No acid-fast bacilli seen in smear. - Method: AFB by Kinyoun Stain - Method: AFB by Kinyoun Stain Normal [facility] Comment on above: Performed By: #### H EMDF, PT, BMP3M, PHOS3, MG3, CK3 #### [facility] [address] [place] [address] #### VD25H #### [facility] [address] [place] [address] Triglycerideon 07-22-2018 Triglyceride mass conc 96 mg/dL Normal <150 [facility] Comment on above: Performed By: #### H EMDF, PT, BMP3M, PHOS3, MG3, CK3 #### [facility] [address] [facility] [place] [address] #### VD25H #### [facility] [address] [place] [address] US Thora-Aspir Pleura w/ Evelin geon 07-22-2018 US Thora-Aspir Pleura w/ Image Patient Name: KATHYA HOOPER Ultrasound Exam Date/Time 07/22/2018 14:23:28 EDT Exam US Thora-Aspir Pleura w/ Image Ordering Physician MARIA EUGENIA PEREZ Accession Number [id number] CPT4 Codes 56736 () Reason For Exam L thoracentesis Report Reasons for examination: Left pleural effusion. Respiratory insufficiency. Ultrasound was performed of the left hemithorax, localizing the pleural fluid. After obtaining informed consent, sterile preparation, draping, and local anesthetic administration, thoracentesis was performed under direct ultrasonographic guidance with a 5 Nepali Yueh needle/catheter. A total of 300 mL [...] Transcribed Date and Time: 07/22/2018 2:55 Normal [facility] pH,Misc Body Fluidon 019 pH,Misc 7.996 Normal None Available [facility] Comment on above: Performed By: #### H EMDF, PT, BMP3M, PHOS3, MG3, CK3 #### [facility] [address] [place] [address] #### VD25H #### [facility] [address] [place] [address] Arterial Blood Gaseson 07-21 CO2 molar conc 29.8 mmol/L High 23.0-27.0 [facility] Comment on above: Performed By: #### T SGL #### [facility] [address] [place] [address] HCO3 molar conc (Bld) 28.7 mmol/L High 21.0-25.0 [facility] Comment on above: Performed By: #### T SGL #### [facility] [address] [place] [address] Hemoglobin mass conc (Bld) 11.7 g/dL Normal ScreenOnly [facility] Comment on above: Performed By: #### T SGL #### [facility] [address] [place] [address] Oxygen ppres (Bld) 144.9 mm[Hg] High 80.0-100.0 [facility] Comment on above: Performed By: #### T SGL #### [facility] [address] [place] [address] Oxygen saturation in Blood 98.4 % Normal 95.0-100.0 [facility] Comment on above: Performed By: #### T SGL #### [facility] [address] [place] [address] pCO2 36.8 mm[Hg] Normal 35.0-45.0 [facility] Comment on above: Performed By: #### T SGL #### [facility] [address] [place] [address] pH (Bld) 7.510 High 7.350-7.450 [facility] Comment on above: Performed By: #### T SGL #### [address] [address] [place] [address] Std Base Excess 5.5 mmol/L High -3.0-3.0 [facility] Comment on above: Performed By: #### T SGL #### [facility] [address] [place] [address] FIO2 .50 Normal [facility] Comment on above: Performed By: #### T SGL #### [facility] [address] [place] [address] CR Abdomen APon 07-21-2018 CR Abdomen AP Patient Name: KATHYA HOOPER Diagnostic Radiology Exam Date/Time 07/21/2018 06:41:07 EDT Exam CR Abdomen AP Ordering Physician JOYA ROJAS Accession Number [id number] CPT4 Codes 73747 () Reason For Exam ileus Report Reason [...] Transcribed Date and Time: 07/21/2018 7:23 Normal [facility] CR Chest Portableon 07-22-19 19 CR Chest Portable Patient Name: KATHYA HOOPER Diagnostic Radiology Exam Date/Time 07/21/2018 06:40:50 EDT Exam CR Chest Portable Ordering Physician MARIA EUGENIA PEREZ Accession Number [id number] CPT4 Codes 17507 () Reason For Exam ETT placement Report [...] Transcribed Date and Time: 07/21/2018 5:38 Normal [facility] CR Chest Portable Patient Name: KATHYA HOOPER Diagnostic Radiology Exam Date/Time 07/21/2018 01:11:50 EDT Exam CR Chest Portable Ordering Physician MD GRIFFIN NICHOLAS Accession Number [id number] CPT4 Codes 67168 () Reason For Exam s/p bronch Report [...] Transcribed Date and Time: 07/21/2018 1:26 Normal [facility] Comp Metabolic Panelon 07-21 Calcium mass conc 7.9 mg/dL Low 8.4-10.4 [facility] Comment on above: Performed By: #### T SGL #### [facility] [address] [place] [address] ALP enzyme act/vol 85 U/L Normal 38-126 [facility] Comment on above: Performed By: #### T SGL #### [facility] [address] [place] [address] ALT enzyme act/vol 105 U/L High 13-69 [facility] Comment on above: Performed By: #### T SGL #### [address] [address] [place] [address] Anion gap molar conc 8 Normal [facility] Comment on above: Performed By: #### T SGL #### [facility] [address] [place] [address] AST enzyme act/vol 78 U/L High 15-46 [facility] Comment on above: Performed By: #### T SGL #### [facility] [address] [place] [address] Bilirubin mass conc 1.1 mg/dL Normal 0.2-1.3 [facility] Comment on above: Performed By: #### T SGL #### [facility] [address] [place] [address] CO2 molar conc 33 mmol/L High 22-30 [facility] Comment on above: Performed By: #### T SGL #### [facility] [address] [place] [address] Creatinine mass conc 0.90 mg/dL Normal 0.52-1.25 [facility] Comment on above: Performed By: #### T SGL #### [facility] [address] [place] [address] GFR/1.73 sq M predicted among blacks MDRD vol rate/area (S/P/Bld) mL/min/{1.73_m2} Normal >60 [facility] Comment on above: Performed By: #### T SGL #### [facility] [address] [place] [address] GFR/1.73 sq M predicted among non-blacks MDRD vol rate/area (S/P/Bld) mL/min/{1.73_m2} Normal >60 [facility] Comment on above: Result Comment: Sour ce- MDRD equation with creatinine calibration to IDMS(NKDEP) eGFR not recommended for drug dose adjustment Performed By: #### T SGL #### [address] [address] [place] [address] Glucose mass conc 113 mg/dL High 70-100 [facility] Comment on above: Performed By: #### T SGL #### [address] [address] [place] [address] Protein mass conc 5.6 g/dL Low 6.3-8.2 [facility] Comment on above: Performed By: #### T SGL #### [address] [address] [place] [address] Urea nitrogen mass conc 28 mg/dL High 7-20 [facility] Comment on above: Performed By: #### T SGL #### [address] [address] [place] [address] Chloride molar conc 104 mmol/L Normal 98-107 [facility] Comment on above: Performed By: #### T SGL #### [address] [address] [place] [address] Potassium molar conc 3.6 mmol/L Normal 3.5-5.1 [facility] Comment on above: Performed By: #### T SGL #### [address] [address] [place] [address] Sodium molar conc 145 mmol/L Normal 135-145 [facility] Comment on above: Performed By: #### T SGL #### [address] [address] [place] [address] Albumin mass conc 2.8 g/dL Low 3.5-5.0 [facility] Comment on above: Performed By: #### T SGL #### [address] [address] [place] [address] Glucose,Bedsideon 07-21-2018 Glucose mass conc 124 mg/dL High 70-100 [facility] Comment on above: Result Comment: Test performed by glucose meter. Results may be 10%-15% lower than serum/plasma values. (CLIA ID [id number]) Performed By: #### H EMDF, PT, BMP3M, PHOS3, MG3, CK3 #### [facility] [address] #### VD25H #### [employer] [facility] [address] [place] [address] Glucose mass conc 151 mg/dL High 70-100 [facility] Comment on above: Result Comment: Test performed by glucose meter. Results may be 10%-15% lower than serum/plasma values. (CLIA ID [id number]) Performed By: #### H EMDF, PT, BMP3M, PHOS3, MG3, CK3 #### [employer] [address] #### VD25H #### [facility] [address] [place] [address] Glucose mass conc 127 mg/dL High 70-100 [facility] Comment on above: Result Comment: Test performed by glucose meter. Results may be 10%-15% lower than serum/plasma values. (CLIA ID [id number]) Performed By: #### T SGL #### [employer] [employer] [address] [address] [place] [address] Glucose mass conc 113 mg/dL High 70-[address] [facility] Comment on above: Result Comment: Test performed by glucose meter. Results may be 10%-15% lower than serum/plasma values. (CLIA ID [id number]) Performed By: #### A DDON #### [employer] [address] Hemogram w/ Autodiffon 07-21 Abs Baso Cnt 0.1 10*3/uL Normal 0.0-0.[address] [facility] Comment on above: Performed By: #### T SGL #### [facility] [address] [place] [address] Abs Neutrophile Cnt 11.0 10*3/uL High 1.8-7.0 [facility] Comment on above: Performed By: #### T SGL #### [address] [address] [place] [address] Basophils/100 WBC (Bld) 0.5 % Normal 0.0-2.0 [facility] Comment on above: Performed By: #### T SGL #### [address] [address] [place] [address] Eosinophils #/vol (Bld) 0.3 10*3/uL Normal 0.0-0.5 [facility] Comment on above: Performed By: #### T SGL #### [address] [address] [place] [address] Eosinophils/100 WBC (Bld) 1.9 % Normal 1.0-6.0 [facility] Comment on above: Performed By: #### T SGL #### [address] [place] [address] Erythrocyte distribution width Ratio (RBC) 13.7 % Normal 11.5-14.5 [facility] Comment on above: Performed By: #### T SGL #### [address] [place] [address] Granulocytes/100 WBC (Bld) 81.0 % High 40.0-80.0 [facility] Comment on above: Performed By: #### T SGL #### [address] [address] [place] [address] Hematocrit Volume Fraction (Bld) 32.1 % Low 40.0-52.0 [facility] Comment on above: Performed By: #### T SGL #### [address] [address] [place] [address] Hemoglobin mass conc (Bld) 10.7 g/dL Low 13.0-18.0 [facility] Comment on above: Performed By: #### T SGL #### [address] [address] [place] [address] Lymphocytes #/vol (Bld) 1.3 10*3/uL Normal 1.0-4.3 [facility] Comment on above: Performed By: #### T SGL #### [facility] [address] [place] [address] Lymphocytes/100 WBC (Bld) 9.8 % Low 20.0-40.0 [facility] Comment on above: Performed By: #### T SGL #### [facility] [address] [place] [address] MCH Entitic mass (RBC) 29.0 pg Normal 26.0-34.0 [facility] Comment on above: Performed By: #### T SGL #### [address] [address] [place] [address] MCHC mass conc (RBC) 33.4 % Normal 32.0-36.0 [facility] Comment on above: Performed By: #### T SGL #### [address] [place] [address] MCV Entitic volume (RBC) 86.9 fL Normal 80.0-98.0 [facility] Comment on above: Performed By: #### T SGL #### [address] [address] [place] [address] Monocytes #/vol (Bld) 0.9 10*3/uL High 0.0-0.8 [facility] Comment on above: Performed By: #### T SGL #### [address] [address] [place] [address] Monocytes/100 WBC (Bld) 6.8 % Normal 2.0-10.0 [facility] Comment on above: Performed By: #### T SGL #### [address] [address] [place] [address] Platelet mean volume Entitic volume (Bld) 7.4 fL Normal 7.4-10.4 [facility] Comment on above: Performed By: #### T SGL #### [address] [address] [place] [address] Platelets #/vol (Bld) 367 10*3/uL Normal 140-440 [facility] Comment on above: Performed By: #### T SGL #### [address] [address] [place] [address] RBC #/vol (Bld) 3.69 10*6/uL Low 4.40-5.90 [facility] Comment on above: Performed By: #### T SGL #### [facility] [address] [place] [address] WBC #/vol (Bld) 13.6 10*3/uL High 3.6-10.7 [facility] Comment on above: Performed By: #### T SGL #### [facility] [address] [place] [address] Magnesiumon 07-21-2018 Magnesium mass conc 2.6 mg/dL High 1.6-2.3 [facility] Comment on above: Performed By: #### T SGL #### [facility] [address] [place] [address] Phosphoruson 07-21-2018 Phosphate mass conc 4.2 mg/dL Normal 2.5-4.5 [facility] Comment on above: Performed By: #### T SGL #### [address] [address] [place] [address] Triglycerideon 07-21-2018 Triglyceride mass conc 105 mg/dL Normal <150 [facility] Comment on above: Performed By: #### T SGL #### [address] [address] [place] [address] Add on test from HISon 07-20 Add on test from HIS Accepted Normal [facility] Comment on above: Result Comment: Spec imen available & acceptable for analysis. Performed By: #### A DDON #### [address] [place] [address] Basic Metabolic Panelon 06-30 Calcium mass conc 7.7 mg/dL Low 8.4-10.4 [facility] Comment on above: Performed By: #### A DDON #### [address] [place] [address] Glucose mass conc 96 mg/dL Normal 70-100 [facility] Comment on above: Performed By: #### A DDON #### [address] [place] Urea nitrogen mass conc 22 mg/dL High 7-20 S [facility] Comment on above: Performed By: #### A DDON #### [facility] [address] [place] [address] Anion gap molar conc 10 Normal [facility] Comment on above: Performed By: #### A DDON #### [facility] [address] [place] [address] CO2 molar conc 29 mmol/L Normal 22-30 [facility] Comment on above: Performed By: #### A DDON #### [facility] [address] [place] [address] Creatinine mass conc 0.87 mg/dL Normal 0.52-1.25 [facility] Comment on above: Performed By: #### A DDON #### [facility] [address] [place] [address] GFR/1.73 sq M predicted among blacks MDRD vol rate/area (S/P/Bld) mL/min/{1.73_m2} Normal >60 [facility] Comment on above: Performed By: #### A DDON #### [facility] [address] [place] [address] GFR/1.73 sq M predicted among non-blacks MDRD vol rate/area (S/P/Bld) mL/min/{1.73_m2} Normal >60 [facility] Comment on above: Result Comment: Sour ce- MDRD equation with creatinine calibration to IDMS(NKDEP) eGFR not recommended for drug dose adjustment Performed By: #### A DDON #### [facility] [address] [place] [address] Potassium molar conc 3.6 mmol/L Normal 3.5-5.1 [facility] Comment on above: Performed By: #### A DDON #### [facility] [address] [place] [address] Chloride molar conc 105 mmol/L Normal 98-107 [facility] Comment on above: Performed By: #### A DDON #### [facility] [address] [place] [address] Sodium molar conc 144 mmol/L Normal 135-145 [facility] Comment on above: Performed By: #### A DDON #### [address] [address] CR Abdomen APon 07-20-2018 CR Abdomen AP Patient Name: KATHYA HOOPER Diagnostic Radiology Exam Date/Time 07/20/2018 08:39:45 EDT Exam CR Abdomen AP Ordering Physician JOYA ROJAS Accession Number [id number] CPT4 Codes 70349 () Reason For Exam ileus Report Clinical [...] Transcribed Date and Time: 07/20/2018 9:29 Normal [facility] CR Chest Portableon 07-21-19 19 CR Chest Portable Patient Name: KATHYA HOOPER Diagnostic Radiology Exam Date/Time 07/20/2018 08:39:26 EDT Exam CR Chest Portable Ordering Physician MARIA EUGENIA PEREZ Accession Number [id number] CPT4 Codes 68424 () Reason For Exam ETT placement Report [...] Transcribed Date and Time: 07/20/2018 9:28 Normal [facility] CT Abdomen/Pelvis w/ Contras ton 07-20-2018 CT Abdomen/Pelvis w/ Contrast Patient Name: KATHYA HOOPER CT Exam Date/Time 07/20/2018 11:30:[address] Abdomen/Pelvis w/ IV Contrast (IV Onl Ordering Physician [id number] [place]O JOYA Accession Number [id number] CPT4 Codes 90435 (CT Abdomen/Pelvis w/ IV Contrast (IV Onl) [...] Transcribed Date and Time: 07/20/2018 1:10 Normal [facility] CT Chest w/ Contraston 07-20 CT Chest w/ Contrast Patient Name: KATHYA RAY CT Exam Date/Time 07/20/2018 11:30:[address] Chest w/ Contrast Ordering Physician [id number] AGUILERA Accession Number [id number] CPT4 Codes 94621 (), Q9967 (CT ISOVUE 370MG/[id number]) Reason For Exam SOB, possible pneumonia Report [...] Transcribed Date and Time: 07/20/2018 1:28 Normal [facility] Glucose,Bedsideon 07-20-2018 Glucose mass conc 128 mg/dL High 70-100 [facility] Comment on above: Result Comment: Test performed by glucose meter. Results may be 10%-15% lower than serum/plasma values. (CLIA ID [id number]) Performed By: #### A DDON #### [address] Hemogram w/ Autodiffon 07-20 Abs Baso Cnt 0.1 10*3/uL Normal 0.0-0.2 [facility] Comment on above: Performed By: #### H EMDF, PT, BMP3M, PHOS3, MG3, CK3 #### [address] #### VD25H #### [facility] [address] [place] [address] Abs Neutrophile Cnt 13.0 10*3/uL High 1.8-7.0 [facility] Comment on above: Performed By: #### H EMDF, PT, BMP3M, PHOS3, MG3, CK3 #### [address] #### VD25H #### [place] [address] [place] [address] Basophils/100 WBC (Bld) 0.3 % Normal 0.0-2.0 [facility] Comment on above: Performed By: #### H EMDF, PT, BMP3M, PHOS3, MG3, CK3 #### [address] #### VD25H #### [facility] [address] [place] [address] Eosinophils #/vol (Bld) 0.3 10*3/uL Normal 0.0-0.5 [facility] Comment on above: Performed By: #### H EMDF, PT, BMP3M, PHOS3, MG3, CK3 #### [address] #### VD25H #### [facility] [address] [facility] [place] [address] Eosinophils/100 WBC (Bld) 1.9 % Normal 1.0-6.0 [facility] Comment on above: Performed By: #### H EMDF, PT, BMP3M, PHOS3, MG3, CK3 #### [place] [address] [place] #### VD25H #### [facility] [address] [place] [address] Erythrocyte distribution width Ratio (RBC) 13.3 % Normal 11.5-14.5 [facility] Comment on above: Performed By: #### H EMDF, PT, BMP3M, PHOS3, MG3, CK3 #### [place] [address] [place] #### VD25H #### [facility] [address] [place] [address] Granulocytes/100 WBC (Bld) 81.8 % High 40.0-80.0 [facility] Comment on above: Performed By: #### H EMDF, PT, BMP3M, PHOS3, MG3, CK3 #### [address] #### VD25H #### [facility] [address] [place] [address] Hematocrit Volume Fraction (Bld) 33.6 % Low 40.0-52.0 [facility] Comment on above: Performed By: #### H EMDF, PT, BMP3M, PHOS3, MG3, CK3 #### [address] #### VD25H #### [facility] [address] [place] [address] Hemoglobin mass conc (Bld) 11.4 g/dL Low 13.0-18.0 [facility] Comment on above: Performed By: #### H EMDF, PT, BMP3M, PHOS3, MG3, CK3 #### [place] [address] [place], [place] #### VD25H #### [facility] [address] [place] [address] Lymphocytes #/vol (Bld) 1.5 10*3/uL Normal 1.0-4.3 [facility] Comment on above: Performed By: #### H EMDF, PT, BMP3M, PHOS3, MG3, CK3 #### [address] [place] #### VD25H #### [facility] [address] [place] [place] [address] Lymphocytes/100 WBC (Bld) 9.2 % Low 20.0-40.0 [facility] Comment on above: Performed By: #### H EMDF, PT, BMP3M, PHOS3, MG3, CK3 #### [address] [place] #### VD25H #### [facility] [address] [place] [place] [address] MCH Entitic mass (RBC) 29.3 pg Normal 26.0-34.0 [facility] Comment on above: Performed By: #### H EMDF, PT, BMP3M, PHOS3, MG3, CK3 #### [address] #### VD25H #### [facility] [address] [place] [place] [address] MCHC mass conc (RBC) 33.9 % Normal 32.0-36.0 [facility] Comment on above: Performed By: #### H EMDF, PT, BMP3M, PHOS3, MG3, CK3 #### [address] #### VD25H #### [facility] [address] [place] [place] [address] MCV Entitic volume (RBC) 86.5 fL Normal 80.0-98.0 [facility] Comment on above: Performed By: #### H EMDF, PT, BMP3M, PHOS3, MG3, CK3 #### [address] #### VD25H #### [facility] [address] [place] [address] Monocytes #/vol (Bld) 1.1 10*3/uL High 0.0-0.8 [facility] Comment on above: Performed By: #### H EMDF, PT, BMP3M, PHOS3, MG3, CK3 #### [facility] [address] [place] #### VD25H #### [facility] [address] [place] [address] Monocytes/100 WBC (Bld) 6.8 % Normal 2.0-10.0 [facility] Comment on above: Performed By: #### H EMDF, PT, BMP3M, PHOS3, MG3, CK3 #### [place] [address] [place] #### VD25H #### [facility] [address] [place] [address] Platelet mean volume Entitic volume (Bld) 7.5 fL Normal 7.4-10.4 [facility] Comment on above: Performed By: #### H EMDF, PT, BMP3M, PHOS3, MG3, CK3 #### [address] #### VD25H #### [facility] [address] [place] [address] Platelets #/vol (Bld) 375 10*3/uL Normal 140-440 [facility] Comment on above: Performed By: #### H EMDF, PT, BMP3M, PHOS3, MG3, CK3 #### [place] [address] [address] [facility] #### VD25H #### [facility] [address] [place] [address] RBC #/vol (Bld) 3.88 10*6/uL Low 4.40-5.90 [facility] Comment on above: Performed By: #### H EMDF, PT, BMP3M, PHOS3, MG3, CK3 #### [address], [place] #### VD25H #### [facility] [address] [place] [address] WBC #/vol (Bld) 15.9 10*3/uL High 3.6-10.7 [facility] Comment on above: Performed By: #### H EMDF, PT, BMP3M, PHOS3, MG3, CK3 #### [address] #### VD25H #### [facility] [address] [place] [address] Phosphoruson 07-20-2018 Phosphate mass conc 5.5 mg/dL High 2.5-4.5 [facility] Comment on above: Performed By: #### A DDON #### [address] Add on test from HISon 07-19 Add on test from HIS Accepted Normal [facility] Comment on above: Result Comment: Spec imen available & acceptable for analysis. Performed By: #### H EMDF, PT, BMP3M, PHOS3, MG3, CK3 #### [address] #### VD25H #### [facility] [address] [facility] [place] [address] Arterial Blood Gaseson 07-19 CO2 molar conc 31.5 mmol/L High 23.0-27.0 [facility] Comment on above: Performed By: #### H EMDF, PT, BMP3M, PHOS3, MG3, CK3 #### [address] #### VD25H #### [facility] [address] [facility] [place] [address] HCO3 molar conc (Bld) 30.2 mmol/L High 21.0-25.0 [facility] Comment on above: Performed By: #### H EMDF, PT, BMP3M, PHOS3, MG3, CK3 #### [address] #### VD25H #### [facility] [address] [place] [address] Hemoglobin mass conc (Bld) 11.7 g/dL Normal [facility]Only [facility] Comment on above: Performed By: #### H EMDF, PT, BMP3M, PHOS3, MG3, CK3 #### [facility] [address] [place] #### VD25H #### [facility] [address] [place] [address] Oxygen ppres (Bld) 85.1 mm[Hg] Normal 80.0-100.0 [facility] Comment on above: Performed By: #### H EMDF, PT, BMP3M, PHOS3, MG3, CK3 #### [place] [address] [place] #### VD25H #### [facility] [address] [place] [address] Oxygen saturation in Blood 95.9 % Normal 95.0-100.0 [facility] Comment on above: Performed By: #### H EMDF, PT, BMP3M, PHOS3, MG3, CK3 #### [place] [address] [place] #### VD25H #### [facility] [address] [place] [address] pCO2 43.6 mm[Hg] Normal 35.0-45.0 [facility] Comment on above: Performed By: #### H EMDF, PT, BMP3M, PHOS3, MG3, CK3 #### [facility] [address] [place] #### VD25H #### [facility] [address] [place] [address] pH (Bld) 7.458 High 7.350-7.450 [facility] Comment on above: Performed By: #### H EMDF, PT, BMP3M, PHOS3, MG3, CK3 #### [place] [address] [address] [facility] #### VD25H #### [facility] [address] [place] [address] Std Base Excess 5.7 mmol/L High -3.0-3.0 [facility] Comment on above: Performed By: #### H EMDF, PT, BMP3M, PHOS3, MG3, CK3 #### [facility] [address] [facility] #### VD25H #### [facility] [address] [place] [address] FIO2 40% Normal [facility] Comment on above: Performed By: #### H EMDF, PT, BMP3M, PHOS3, MG3, CK3 #### [place] [address] [address] [facility] #### VD25H #### [facility] [address] [place] [address] Basic Metabolic Panelon 03-2 Calcium mass conc 7.5 mg/dL Low 8.4-10.4 [facility] Comment on above: Performed By: #### H EMDF, PT, BMP3M, PHOS3, MG3, CK3 #### [place] [address] [address] [facility] #### VD25H #### [facility] [address] [place] [address] Glucose mass conc 274 mg/dL High 70-100 [facility] Comment on above: Performed By: #### H EMDF, PT, BMP3M, PHOS3, MG3, CK3 #### [place] [address] [address] [facility] #### VD25H #### [facility] [address] [place] [address] Anion gap molar conc 6 Normal [facility] Comment on above: Performed By: #### H EMDF, PT, BMP3M, PHOS3, MG3, CK3 #### [place] [address] [address] [facility] #### VD25H #### [facility] [address] [place] [address] CO2 molar conc 31 mmol/L High 22-30 [facility] Comment on above: Performed By: #### H EMDF, PT, BMP3M, PHOS3, MG3, CK3 #### [address] [address] #### VD25H #### [facility] [address] [place] [address] Creatinine mass conc 0.64 mg/dL Normal 0.52-1.25 [facility] Comment on above: Performed By: #### H EMDF, PT, BMP3M, PHOS3, MG3, CK3 #### [address] [address] #### VD25H #### [facility] [address] [place] [address] GFR/1.73 sq M predicted among blacks MDRD vol rate/area (S/P/Bld) mL/min/{1.73_m2} Normal >60 [facility] Comment on above: Performed By: #### H EMDF, PT, BMP3M, PHOS3, MG3, CK3 #### [address] [address] #### VD25H #### [facility] [address] [place] [address] GFR/1.73 sq M predicted among non-blacks MDRD vol rate/area (S/P/Bld) mL/min/{1.73_m2} Normal >60 [facility] Comment on above: Result Comment: Sour ce- MDRD equation with creatinine calibration to IDMS(NKDEP) eGFR not recommended for drug dose adjustment Performed By: #### H EMDF, PT, BMP3M, PHOS3, MG3, CK3 #### [address] [address] #### VD25H #### [facility] [address] [place] [address] Urea nitrogen mass conc 15 mg/dL Normal 7-20 [facility] Comment on above: Performed By: #### H EMDF, PT, BMP3M, PHOS3, MG3, CK3 #### [address] [place] [address] #### VD25H #### [facility] [address] [place] [address] Chloride molar conc 105 mmol/L Normal 98-107 [facility] Comment on above: Performed By: #### H EMDF, PT, BMP3M, PHOS3, MG3, CK3 #### [facility] [address] [place] [address] #### VD25H #### [facility] [address] [place] [address] Potassium molar conc 4.3 mmol/L Normal 3.5-5.1 [facility] Comment on above: Performed By: #### H EMDF, PT, BMP3M, PHOS3, MG3, CK3 #### [facility] [address] [place] [address] #### VD25H #### [facility] [address] [place] [address] Sodium molar conc 141 mmol/L Normal 135-145 [facility] Comment on above: Performed By: #### H EMDF, PT, BMP3M, PHOS3, MG3, CK3 #### [facility] [address] [place] [address] #### VD25H #### [facility] [address] [place] [address] CR Abdomen APon 07-19-2018 CR Abdomen AP Patient Name: KATHYA HOOPER Diagnostic Radiology Exam Date/Time 07/19/2018 06:44:12 EDT Exam CR Abdomen AP Ordering Physician JOYA ROJAS Accession Number [id number] CPT4 Codes 29354 () Reason For Exam ileus Report Abdomen: [...] Transcribed Date and Time: 07/19/2018 7:46 Normal [facility] CR Chest Portableon 07-20-19 19 CR Chest Portable Patient Name: KATHYA HOOPER Diagnostic Radiology Exam Date/Time 07/19/2018 06:43:52 EDT Exam CR Chest Portable Ordering Physician MARIA EUGENIA PEREZ Accession Number [id number] CPT4 Codes 03343 () Reason For Exam ETT placement Report [...] Transcribed Date and Time: 07/19/2018 7:44 Normal [facility] Glucose,Bedsideon 07-19-2018 Glucose mass conc 95 mg/dL Normal 70-100 [facility] Comment on above: Result Comment: Test performed by glucose meter. Results may be 10%-15% lower than serum/plasma values. (CLIA ID [id number]) Performed By: #### H EMDF, PT, BMP3M, PHOS3, MG3, CK3 #### [facility] [address] [place] [address] #### VD25H #### [facility] [address] [facility] [place] [address] Hemogram w/ Autodiffon 07-19 Abs Baso Cnt 0.1 10*3/uL Normal 0.0-0.2 [facility] Comment on above: Performed By: #### H EMDF, PT, BMP3M, PHOS3, MG3, CK3 #### [facility] [address] [place], [place] #### VD25H #### [facility] [address] [place] [address] Abs Neutrophile Cnt 9.8 10*3/uL High 1.8-7.0 [facility] Comment on above: Performed By: #### H EMDF, PT, BMP3M, PHOS3, MG3, CK3 #### [address] #### VD25H #### [facility] [address] [place] [address] Basophils/100 WBC (Bld) 0.5 % Normal 0.0-2.0 [facility] Comment on above: Performed By: #### H EMDF, PT, BMP3M, PHOS3, MG3, CK3 #### [address] #### VD25H #### [facility] [address] [facility] [place] [address] Eosinophils #/vol (Bld) 0.3 10*3/uL Normal 0.0-0.5 [facility] Comment on above: Performed By: #### H EMDF, PT, BMP3M, PHOS3, MG3, CK3 #### [address] #### VD25H #### [facility] [address] [facility] [place] [address] Eosinophils/100 WBC (Bld) 2.5 % Normal 1.0-6.0 [facility] Comment on above: Performed By: #### H EMDF, PT, BMP3M, PHOS3, MG3, CK3 #### [address] #### VD25H #### [facility] [address] [place] [address] Erythrocyte distribution width Ratio (RBC) 13.3 % Normal 11.5-14.5 [facility] Comment on above: Performed By: #### H EMDF, PT, BMP3M, PHOS3, MG3, CK3 #### [place] [address] [address] [place] #### VD25H #### [facility] [address] [place] [address] Granulocytes/100 WBC (Bld) 80.4 % High 40.0-80.0 [facility] Comment on above: Performed By: #### H EMDF, PT, BMP3M, PHOS3, MG3, CK3 #### [address] [place] #### VD25H #### [facility] [address] [place] [address] Hematocrit Volume Fraction (Bld) 30.6 % Low 40.0-52.0 [facility] Comment on above: Performed By: #### H EMDF, PT, BMP3M, PHOS3, MG3, CK3 #### [address] [place] #### VD25H #### [facility] [address] [place] [address] Hemoglobin mass conc (Bld) 10.5 g/dL Low 13.0-18.0 [facility] Comment on above: Performed By: #### H EMDF, PT, BMP3M, PHOS3, MG3, CK3 #### [address] #### VD25H #### [facility] [address] [place] [address] Lymphocytes #/vol (Bld) 1.1 10*3/uL Normal 1.0-4.3 [facility] Comment on above: Performed By: #### H EMDF, PT, BMP3M, PHOS3, MG3, CK3 #### [address] [place] #### VD25H #### [facility] [address] [place] [address] Lymphocytes/100 WBC (Bld) 9.1 % Low 20.0-40.0 [facility] Comment on above: Performed By: #### H EMDF, PT, BMP3M, PHOS3, MG3, CK3 #### [place] [address] [address] [place] #### VD25H #### [facility] [address] [address] MCH Entitic mass (RBC) 29.7 pg Normal 26.0-34.0 [facility] Comment on above: Performed By: #### H EMDF, PT, BMP3M, PHOS3, MG3, CK3 #### [address] #### VD25H #### [place] [address] [place] [address] MCHC mass conc (RBC) 34.3 % Normal 32.0-36.0 [facility] Comment on above: Performed By: #### H EMDF, PT, BMP3M, PHOS3, MG3, CK3 #### [address] #### VD25H #### [facility] [address] [address] MCV Entitic volume (RBC) 86.7 fL Normal 80.0-98.0 [facility] Comment on above: Performed By: #### H EMDF, PT, BMP3M, PHOS3, MG3, CK3 #### [address] #### VD25H #### [facility] [address] [place] [address] Monocytes #/vol (Bld) 0.9 10*3/uL High 0.0-0.8 [facility] Comment on above: Performed By: #### H EMDF, PT, BMP3M, PHOS3, MG3, CK3 #### [facility] [address] [place] #### VD25H #### [facility] [address] [place] [address] Monocytes/100 WBC (Bld) 7.5 % Normal 2.0-10.0 S [facility] Comment on above: Performed By: #### H EMDF, PT, BMP3M, PHOS3, MG3, CK3 #### [place] [address] [place] #### VD25H #### [facility] [address] [place] [address] Platelet mean volume Entitic volume (Bld) 7.3 fL Low 7.4-10.4 [facility] Comment on above: Performed By: #### H EMDF, PT, BMP3M, PHOS3, MG3, CK3 #### [address] #### VD25H #### [facility] [address] [place] [address] Platelets #/vol (Bld) 329 10*3/uL Normal 140-440 [facility] Comment on above: Performed By: #### H EMDF, PT, BMP3M, PHOS3, MG3, CK3 #### [address] #### VD25H #### [facility] [address] [place] [address] RBC #/vol (Bld) 3.53 10*6/uL Low 4.40-5.90 [facility] Comment on above: Performed By: #### H EMDF, PT, BMP3M, PHOS3, MG3, CK3 #### [address] [place] #### VD25H #### [facility] [address] [place] [address] WBC #/vol (Bld) 12.2 10*3/uL High 3.6-10.7 [facility] Comment on above: Performed By: #### H EMDF, PT, BMP3M, PHOS3, MG3, CK3 #### [address] #### VD25H #### [facility] [address] [place] [address] Magnesiumon 07-19-2018 Magnesium mass conc 2.3 mg/dL Normal 1.6-2.3 [facility] Comment on above: Performed By: #### H EMDF, PT, BMP3M, PHOS3, MG3, CK3 #### [address] #### VD25H #### [address] [place] [address] Procalcitoninon 07-19-2018 Protein mass conc 0.15 ng/mL Abnormal <0.10 [facility] Comment on above: Performed By: #### H EMDF, PT, BMP3M, PHOS3, MG3, CK3 #### [address] #### VD25H #### [facility] [address] [facility] [address] [place] [address] Interpretation See Below Normal [facility] Comment on above: Result Comment: PCT <0.50 = Low risk of severe sepsis and/or septic shock. PCT >2.00 = High risk of severe sepsis and/or septic shock. Performed By: #### H EMDF, PT, BMP3M, PHOS3, MG3, CK3 #### [address] #### VD25H #### [facility] [address] [place] [address] VL Venous Duplex US Lower Ex t Bilateralon 07-19-2018 VL Venous Duplex US Lower Ext Bilateral Patient Name: KATHYA HOOPER Ultrasound Exam Date/Time 07/19/2018 11:10:14 EDT Exam VL Venous Duplex US Lower Ext Bilateral Ordering Physician ETIENNE MARTÍNEZ JULIE Accession Number [id number] CPT4 Codes 84947 () Reason For Exam edema Report [facility] --- Lower Extremity Venous Duplex Report Patient Name: Kathya Hooper : 1955 Study Date: 07/19/2018 W (63yrs) Age: 63 Account: [id number] Gender: M Loc: [id number] BP: Ordering: Yesenia Martínez Technologist: Ordering Physician: Yesenia Martínez Human Service Worker: León Chaidez RVT [facility] Interpreting Physician: Ricardo Hall MD --- Location: [facility] --- INDICATIONS: Edema. bilateral calf edema. --- [...] performed. The images were obtained using a [employer] E9 vascular ultrasound machine. --- VENOUS FLOW [...] --+ Electronically signed by: Ricardo Hall MD [id number] Final Dictated: 07/20/2018 10:49 am Dictating Physician: RICARDO HALL Signed Date and Time: 07/19/2018 11:03 am Signed by: RICARDO HALL Normal [facility] Basic Metabolic Panelon 03-2 Calcium mass conc 7.9 mg/dL Low 8.4-10.4 [facility] Comment on above: Performed By: #### H EMDF, PT, BMP3M, PHOS3, MG3, CK3 #### [facility] [address] [place] [address] #### VD25H #### [facility] [address] [place] [address] Glucose mass conc 113 mg/dL High 70-100 [facility] Comment on above: Performed By: #### H EMDF, PT, BMP3M, PHOS3, MG3, CK3 #### [place] [address] [address] [place] #### VD25H #### [facility] [address] [place] [address] Anion gap molar conc 7 Normal [facility] Comment on above: Performed By: #### H EMDF, PT, BMP3M, PHOS3, MG3, CK3 #### [place] [address] [address] [place] #### VD25H #### [facility] [address] [place] [address] CO2 molar conc 31 mmol/L High 22-30 [facility] Comment on above: Performed By: #### H EMDF, PT, BMP3M, PHOS3, MG3, CK3 #### [address] #### VD25H #### [facility] [address] [place] [address] Creatinine mass conc 0.59 mg/dL Normal 0.52-1.25 [facility] Comment on above: Performed By: #### H EMDF, PT, BMP3M, PHOS3, MG3, CK3 #### [address] [place] #### VD25H #### [facility] [address] [place] [address] GFR/1.73 sq M predicted among blacks MDRD vol rate/area (S/P/Bld) mL/min/{1.73_m2} Normal >60 [facility] Comment on above: Performed By: #### H EMDF, PT, BMP3M, PHOS3, MG3, CK3 #### [address] [address] #### VD25H #### [facility] [address] [place] [address] GFR/1.73 sq M predicted among non-blacks MDRD vol rate/area (S/P/Bld) mL/min/{1.73_m2} Normal >60 [facility] Comment on above: Result Comment: Sour ce- MDRD equation with creatinine calibration to IDMS(NKDEP) eGFR not recommended for drug dose adjustment Performed By: #### H EMDF, PT, BMP3M, PHOS3, MG3, CK3 #### [facility] [address] [place], [place] #### VD25H #### [facility] [address] [place] [address] Urea nitrogen mass conc 19 mg/dL Normal 7-20 [facility] Comment on above: Performed By: #### H EMDF, PT, BMP3M, PHOS3, MG3, CK3 #### [place] [address] [address] [facility], [place] #### VD25H #### [facility] [address] [place] [address] Chloride molar conc 104 mmol/L Normal 98-107 [facility] Comment on above: Performed By: #### H EMDF, PT, BMP3M, PHOS3, MG3, CK3 #### [place] [address] [address] [facility] #### VD25H #### [facility] [address] [place] [address] Potassium molar conc 3.4 mmol/L Low 3.5-5.1 [facility] Comment on above: Performed By: #### H EMDF, PT, BMP3M, PHOS3, MG3, CK3 #### [place] [address] [address] [facility] #### VD25H #### [facility] [address] [place] [address] Sodium molar conc 142 mmol/L Normal 135-145 [facility] Comment on above: Performed By: #### H EMDF, PT, BMP3M, PHOS3, MG3, CK3 #### [place] [address] [address] [facility] #### VD25H #### [facility] [address] [place] [address] CR Abdomen APon 07-18-2018 CR Abdomen AP Patient Name: KATHYA HOOPER Diagnostic Radiology Exam Date/Time 07/18/2018 06:52:18 EDT Exam CR Abdomen AP Ordering Physician [id number] AGUILERA Accession Number [id number] CPT4 Codes 55041 () Reason For Exam ileus Report CLINICAL [...] Transcribed Date and Time: 07/18/2018 2:33 Normal [facility] CR Chest Portableon 07-19-19 19 CR Chest Portable Patient Name: KATHYA HOOPER Diagnostic Radiology Exam Date/Time 07/18/2018 06:52:50 EDT Exam CR Chest Portable Ordering Physician MARIA EUGENIA PEREZ Accession Number [id number] CPT4 Codes 00801 () Reason For Exam ETT placement Report [...] Transcribed Date and Time: 07/18/2018 2:32 Normal [facility] Hemogram w/ Autodiffon 07-18 Abs Baso Cnt 0.0 10*3/uL Normal 0.0-0.2 [facility] Comment on above: Performed By: #### H EMDF, PT, BMP3M, PHOS3, MG3, CK3 #### [address] #### VD25H #### [facility] [address] [place] [address] Abs Neutrophile Cnt 8.6 10*3/uL High 1.8-7.0 [facility] Comment on above: Performed By: #### H EMDF, PT, BMP3M, PHOS3, MG3, CK3 #### [facility] [address] [place], [place] #### VD25H #### [facility] [address] [place] [address] Basophils/100 WBC (Bld) 0.4 % Normal 0.0-2.0 [facility] Comment on above: Performed By: #### H EMDF, PT, BMP3M, PHOS3, MG3, CK3 #### [address] #### VD25H #### [facility] [address] [place] [address] Eosinophils #/vol (Bld) 0.2 10*3/uL Normal 0.0-0.5 [facility] Comment on above: Performed By: #### H EMDF, PT, BMP3M, PHOS3, MG3, CK3 #### [facility] [address] [place], [place] #### VD25H #### [facility] [address] [place] [address] Eosinophils/100 WBC (Bld) 2.1 % Normal 1.0-6.0 [facility] Comment on above: Performed By: #### H EMDF, PT, BMP3M, PHOS3, MG3, CK3 #### [address] #### VD25H #### [facility] [address] [place] [address] Erythrocyte distribution width Ratio (RBC) 13.4 % Normal 11.5-14.5 [facility] Comment on above: Performed By: #### H EMDF, PT, BMP3M, PHOS3, MG3, CK3 #### [address] #### VD25H #### [facility] [address] [place] [address] Granulocytes/100 WBC (Bld) 80.0 % Normal 40.0-80.0 [facility] Comment on above: Performed By: #### H EMDF, PT, BMP3M, PHOS3, MG3, CK3 #### [address] #### VD25H #### [facility] [address] [place] [address] Hematocrit Volume Fraction (Bld) 37.3 % Low 40.0-52.0 [facility] Comment on above: Performed By: #### H EMDF, PT, BMP3M, PHOS3, MG3, CK3 #### [address] #### VD25H #### [facility] [address] [place] [address] Hemoglobin mass conc (Bld) 12.6 g/dL Low 13.0-18.0 [facility] Comment on above: Performed By: #### H EMDF, PT, BMP3M, PHOS3, MG3, CK3 #### [place] [address] [address] [place] #### VD25H #### [facility] [address] [place] [address] Lymphocytes #/vol (Bld) 1.1 10*3/uL Normal 1.0-4.3 [facility] Comment on above: Performed By: #### H EMDF, PT, BMP3M, PHOS3, MG3, CK3 #### [place] [address] [address] [place] #### VD25H #### [facility] [address] [place] [address] Lymphocytes/100 WBC (Bld) 10.3 % Low 20.0-40.0 [facility] Comment on above: Performed By: #### H EMDF, PT, BMP3M, PHOS3, MG3, CK3 #### [address] [place] [address] [address] [place] #### VD25H #### [facility] [address] [place] [address] MCH Entitic mass (RBC) 29.4 pg Normal 26.0-34.0 [facility] Comment on above: Performed By: #### H EMDF, PT, BMP3M, PHOS3, MG3, CK3 #### [place] [address] [address] [place] #### VD25H #### [facility] [address] [place] [address] MCHC mass conc (RBC) 33.9 % Normal 32.0-36.0 [facility] Comment on above: Performed By: #### H EMDF, PT, BMP3M, PHOS3, MG3, CK3 #### [address] [place] #### VD25H #### [facility] [address] [place] [place] [address] MCV Entitic volume (RBC) 86.8 fL Normal 80.0-98.0 [facility] Comment on above: Performed By: #### H EMDF, PT, BMP3M, PHOS3, MG3, CK3 #### [place] [address] [address] [place] #### VD25H #### [facility] [address] [place] [address] Monocytes #/vol (Bld) 0.8 10*3/uL Normal 0.0-0.8 [facility] Comment on above: Performed By: #### H EMDF, PT, BMP3M, PHOS3, MG3, CK3 #### [address] #### VD25H #### [facility] [address] [place] [address] Monocytes/100 WBC (Bld) 7.2 % Normal 2.0-10.0 [facility] Comment on above: Performed By: #### H EMDF, PT, BMP3M, PHOS3, MG3, CK3 #### [address] #### VD25H #### [facility] [address] [place] [address] Platelet mean volume Entitic volume (Bld) 7.8 fL Normal 7.4-10.4 [facility] Comment on above: Performed By: #### H EMDF, PT, BMP3M, PHOS3, MG3, CK3 #### [place] [address] [address] [place] #### VD25H #### [facility] [address] [place] [address] Platelets #/vol (Bld) 301 10*3/uL Normal 140-440 [facility] Comment on above: Performed By: #### H EMDF, PT, BMP3M, PHOS3, MG3, CK3 #### [address] #### VD25H #### [facility] [address] [place] [address] RBC #/vol (Bld) 4.29 10*6/uL Low 4.40-5.90 [facility] Comment on above: Performed By: #### H EMDF, PT, BMP3M, PHOS3, MG3, CK3 #### [address] #### VD25H #### [facility] [address] [place] [address] WBC #/vol (Bld) 10.8 10*3/uL High 3.6-10.7 [facility] Comment on above: Performed By: #### H EMDF, PT, BMP3M, PHOS3, MG3, CK3 #### [address] #### VD25H #### [place] [address] [place] [address] Arterial Blood Gaseson 07-17 CO2 molar conc 29.7 mmol/L High 23.0-27.0 [facility] Comment on above: Performed By: #### H EMDF, PT, BMP3M, PHOS3, MG3, CK3 #### [address] #### VD25H #### [facility] [address] [place] [address] HCO3 molar conc (Bld) 28.4 mmol/L High 21.0-25.0 [facility] Comment on above: Performed By: #### H EMDF, PT, BMP3M, PHOS3, MG3, CK3 #### [address] #### VD25H #### [facility] [address] [place] [address] Hemoglobin mass conc (Bld) 11.1 g/dL Normal [facility] Comment on above: Performed By: #### H EMDF, PT, BMP3M, PHOS3, MG3, CK3 #### [address] #### VD25H #### [facility] [address] [place] [address] Oxygen ppres (Bld) 109.2 mm[Hg] High 80.0-100.0 [facility] Comment on above: Performed By: #### H EMDF, PT, BMP3M, PHOS3, MG3, CK3 #### [place] [address] [address] [place] #### VD25H #### [facility] [address] [place] [address] Oxygen saturation in Blood 97.8 % Normal 95.0-100.0 [facility] Comment on above: Performed By: #### H EMDF, PT, BMP3M, PHOS3, MG3, CK3 #### [address] #### VD25H #### [facility] [address] [place] [address] pCO2 39.8 mm[Hg] Normal 35.0-45.0 [facility] Comment on above: Performed By: #### H EMDF, PT, BMP3M, PHOS3, MG3, CK3 #### [place] [address] [address] [facility] #### VD25H #### [facility] [address] [place] [address] pH (Bld) 7.472 High 7.350-7.450 [facility] Comment on above: Performed By: #### H EMDF, PT, BMP3M, PHOS3, MG3, CK3 #### [place] [address] [address] [facility] #### VD25H #### [facility] [address] [place] [address] Std Base Excess 4.5 mmol/L High -3.0-3.0 [facility] Comment on above: Performed By: #### H EMDF, PT, BMP3M, PHOS3, MG3, CK3 #### [address] [place] [address] [address] [place] #### VD25H #### [facility] [address] [place] [address] FIO2 60% Normal [facility] Comment on above: Performed By: #### H EMDF, PT, BMP3M, PHOS3, MG3, CK3 #### [facility] [address] [facility] #### VD25H #### [facility] [address] [place] [address] Basic Metabolic Panelon - Anion gap molar conc 6 Normal [facility] Comment on above: Performed By: #### H EMDF, PT, BMP3M, PHOS3, MG3, CK3 #### [place] [address] [address] [facility] #### VD25H #### [facility] [address] [place] [address] Calcium mass conc 8.0 mg/dL Low 8.4-10.4 [facility] Comment on above: Performed By: #### H EMDF, PT, BMP3M, PHOS3, MG3, CK3 #### [address] [place] [address] [address] [facility] #### VD25H #### [facility] [address] [place] [address] CO2 molar conc 31 mmol/L High 22-30 [facility] Comment on above: Performed By: #### H EMDF, PT, BMP3M, PHOS3, MG3, CK3 #### [facility] [address] [facility] [place] #### VD25H #### [facility] [address] [place] [address] Glucose mass conc 107 mg/dL High 70-100 [facility] Comment on above: Performed By: #### H EMDF, PT, BMP3M, PHOS3, MG3, CK3 #### [facility] [address] [facility] #### VD25H #### [facility] [address] [place] [address] Urea nitrogen mass conc 22 mg/dL High 7-20 S [facility] Comment on above: Performed By: #### H EMDF, PT, BMP3M, PHOS3, MG3, CK3 #### [facility] [address] [place] [address] #### VD25H #### [facility] [address] [place] [address] Creatinine mass conc 0.66 mg/dL Normal 0.52-1.25 [facility] Comment on above: Performed By: #### H EMDF, PT, BMP3M, PHOS3, MG3, CK3 #### [address] #### VD25H #### [facility] [address] [place] [address] GFR/1.73 sq M predicted among blacks MDRD vol rate/area (S/P/Bld) mL/min/{1.73_m2} Normal >60 [facility] Comment on above: Performed By: #### H EMDF, PT, BMP3M, PHOS3, MG3, CK3 #### [address] #### VD25H #### [facility] [address] [place] [address] GFR/1.73 sq M predicted among non-blacks MDRD vol rate/area (S/P/Bld) mL/min/{1.73_m2} Normal >60 [facility] Comment on above: Result Comment: Sour ce- MDRD equation with creatinine calibration to IDMS(NKDEP) eGFR not recommended for drug dose adjustment Performed By: #### H EMDF, PT, BMP3M, PHOS3, MG3, CK3 #### [facility] [address] [place], [place] #### VD25H #### [facility] [address] [place] [address] Chloride molar conc 105 mmol/L Normal 98-107 [facility] Comment on above: Performed By: #### H EMDF, PT, BMP3M, PHOS3, MG3, CK3 #### [facility] [address] [place] [address] #### VD25H #### [facility] [address] [place] [address] Potassium molar conc 3.9 mmol/L Normal 3.5-5.1 [facility] Comment on above: Performed By: #### H EMDF, PT, BMP3M, PHOS3, MG3, CK3 #### [facility] [address] [place] [address] #### VD25H #### [facility] [address] [place] [address] Sodium molar conc 142 mmol/L Normal 135-145 [facility] Comment on above: Performed By: #### H EMDF, PT, BMP3M, PHOS3, MG3, CK3 #### [facility] [address] [place] [address] #### VD25H #### [facility] [address] [place] [address] CR Abdomen APon 07-17-2018 CR Abdomen AP Patient Name: KATHYA HOOPER Diagnostic Radiology Exam Date/Time 07/17/2018 12:46:31 EDT Exam CR Abdomen AP Ordering Physician [id number] THAKKAR Accession Number [id number] CPT4 Codes 51943 () Reason For Exam ileus Report Abdomen: [...] Transcribed Date and Time: 07/17/2018 12:46 Normal [facility] CR Abdomen AP Patient Name: KATHYA HOOPER Diagnostic Radiology Exam Date/Time 07/17/2018 06:25:43 EDT Exam CR Abdomen AP Ordering Physician [id number] OR[place]O JOYA Accession Number [id number] CPT4 Codes 09433 () Reason For Exam ileus Report Abdomen: [...] Transcribed Date and Time: 07/17/2018 7:16 Normal [facility] CR Chest Portableon 07-18-19 19 CR Chest Portable Patient Name: KATHYA HOOPER Diagnostic Radiology Exam Date/Time 07/17/2018 18:08:41 EDT Exam CR Chest Portable Ordering Physician SALO DAVIS Accession Number [id number] CPT4 Codes 83878 () Reason For Exam picc Report CHEST [...] Transcribed Date and Time: 07/17/2018 7:24 Normal [facility] CR Chest Portable Patient Name: KATHYA HOOPER Diagnostic Radiology Exam Date/Time 07/17/2018 18:08:41 EDT Exam CR Chest Portable Ordering Physician SALO DAVIS Accession Number [id number] CPT4 Codes 13257 () Reason For Exam reheck line tip [...] is noted at the midline. Surgical skin jada overlie the right lower neck. Cervical spine [...] R Transcribed Date and Time: 07/17/2018 7:21 [facility] CR Chest Portable Patient Name: KATHYA HOOPER Diagnostic Radiology Exam Date/Time 07/17/2018 06:26:06 EDT Exam CR Chest Portable Ordering Physician MARIA EUGENIA PEREZ Accession Number [id number] CPT4 Codes 57628 () Reason For Exam ETT placement Report [...] Transcribed Date and Time: 07/17/2018 7:17 Normal [facility] Hemogram w/ Autodiffon 07-17 Abs Baso Cnt 0.0 10*3/uL Normal 0.0-0.2 [facility] Comment on above: Performed By: #### H EMDF, PT, BMP3M, PHOS3, MG3, CK3 #### [facility] [address], [place] #### VD25H #### [facility] [address] [place] [address] Abs Neutrophile Cnt 8.1 10*3/uL High 1.8-7.0 [facility] Comment on above: Performed By: #### H EMDF, PT, BMP3M, PHOS3, MG3, CK3 #### [facility] [address] [place], [place] #### VD25H #### [facility] [address] [place] [address] Basophils/100 WBC (Bld) 0.4 % Normal 0.0-2.0 [facility] Comment on above: Performed By: #### H EMDF, PT, BMP3M, PHOS3, MG3, CK3 #### [facility] [address] [place] #### VD25H #### [facility] [address] [place] [address] Eosinophils #/vol (Bld) 0.1 10*3/uL Normal 0.0-0.5 [facility] Comment on above: Performed By: #### H EMDF, PT, BMP3M, PHOS3, MG3, CK3 #### [address] [place] #### VD25H #### [facility] [address] [place] [address] Eosinophils/100 WBC (Bld) 1.4 % Normal 1.0-6.0 [facility] Comment on above: Performed By: #### H EMDF, PT, BMP3M, PHOS3, MG3, CK3 #### [address] #### VD25H #### [facility] [address] [place] [address] Erythrocyte distribution width Ratio (RBC) 13.5 % Normal 11.5-14.5 [facility] Comment on above: Performed By: #### H EMDF, PT, BMP3M, PHOS3, MG3, CK3 #### [address] #### VD25H #### [facility] [address] [place] [address] Granulocytes/100 WBC (Bld) 78.6 % Normal 40.0-80.0 [facility] Comment on above: Performed By: #### H EMDF, PT, BMP3M, PHOS3, MG3, CK3 #### [address] #### VD25H #### [facility] [address] [place] [address] Hematocrit Volume Fraction (Bld) 31.3 % Low 40.0-52.0 [facility] Comment on above: Performed By: #### H EMDF, PT, BMP3M, PHOS3, MG3, CK3 #### [address] [place] #### VD25H #### [facility] [address] [place] [address] Hemoglobin mass conc (Bld) 10.4 g/dL Low 13.0-18.0 [facility] Comment on above: Performed By: #### H EMDF, PT, BMP3M, PHOS3, MG3, CK3 #### [address] [place] [address] [address] [place] #### VD25H #### [facility] [address] [place] [address] Lymphocytes #/vol (Bld) 1.0 10*3/uL Normal 1.0-4.3 [facility] Comment on above: Performed By: #### H EMDF, PT, BMP3M, PHOS3, MG3, CK3 #### [address] #### VD25H #### [facility] [address] [place] [address] Lymphocytes/100 WBC (Bld) 10.0 % Low 20.0-40.0 [facility] Comment on above: Performed By: #### H EMDF, PT, BMP3M, PHOS3, MG3, CK3 #### [address] #### VD25H #### [facility] [address] [place] [address] MCH Entitic mass (RBC) 29.3 pg Normal 26.0-34.0 [facility] Comment on above: Performed By: #### H EMDF, PT, BMP3M, PHOS3, MG3, CK3 #### [address] #### VD25H #### [facility] [address] [place] [address] MCHC mass conc (RBC) 33.3 % Normal 32.0-36.0 [facility] Comment on above: Performed By: #### H EMDF, PT, BMP3M, PHOS3, MG3, CK3 #### [facility] [address] [place], [place] #### VD25H #### [facility] [address] [place] [address] MCV Entitic volume (RBC) 87.9 fL Normal 80.0-98.0 [facility] Comment on above: Performed By: #### H EMDF, PT, BMP3M, PHOS3, MG3, CK3 #### [address] #### VD25H #### [facility] [address] [place] [address] Monocytes #/vol (Bld) 1.0 10*3/uL High 0.0-0.8 [facility] Comment on above: Performed By: #### H EMDF, PT, BMP3M, PHOS3, MG3, CK3 #### [address] #### VD25H #### [facility] [address] [place] [address] Monocytes/100 WBC (Bld) 9.6 % Normal 2.0-10.0 S [facility] Comment on above: Performed By: #### H EMDF, PT, BMP3M, PHOS3, MG3, CK3 #### [address] #### VD25H #### [facility] [address] [place] [address] Platelet mean volume Entitic volume (Bld) 7.6 fL Normal 7.4-10.4 [facility] Comment on above: Performed By: #### H EMDF, PT, BMP3M, PHOS3, MG3, CK3 #### [address] #### VD25H #### [facility] [address] [place] [address] Platelets #/vol (Bld) 307 10*3/uL Normal 140-440 [facility] Comment on above: Performed By: #### H EMDF, PT, BMP3M, PHOS3, MG3, CK3 #### [facility] [address] [place] #### VD25H #### [facility] [address] [place] [address] RBC #/vol (Bld) 3.56 10*6/uL Low 4.40-5.90 [facility] Comment on above: Performed By: #### H EMDF, PT, BMP3M, PHOS3, MG3, CK3 #### [address] #### VD25H #### [place] [address] [place] [address] WBC #/vol (Bld) 10.2 10*3/uL Normal 3.6-10.7 [facility] Comment on above: Performed By: #### H EMDF, PT, BMP3M, PHOS3, MG3, CK3 #### [address] #### VD25H #### [facility] [address] [place] [address] Basic Metabolic Panelon 06-29 Calcium mass conc 8.1 mg/dL Low 8.4-10.4 [facility] Comment on above: Performed By: #### H EMDF, PT, BMP3M, PHOS3, MG3, CK3 #### [address] #### VD25H #### [facility] [address] [place] [address] Anion gap molar conc 5 Normal [facility] Comment on above: Performed By: #### H EMDF, PT, BMP3M, PHOS3, MG3, CK3 #### [address] #### VD25H #### [facility] [address] [place] [address] CO2 molar conc 32 mmol/L High 22-30 [facility] Comment on above: Performed By: #### H EMDF, PT, BMP3M, PHOS3, MG3, CK3 #### [facility] [address] [place] [address] #### VD25H #### [facility] [address] [place] [address] Creatinine mass conc 0.62 mg/dL Normal 0.52-1.25 [facility] Comment on above: Performed By: #### H EMDF, PT, BMP3M, PHOS3, MG3, CK3 #### [address] #### VD25H #### [facility] [address] [place] [address] GFR/1.73 sq M predicted among blacks MDRD vol rate/area (S/P/Bld) mL/min/{1.73_m2} Normal >60 [facility] Comment on above: Performed By: #### H EMDF, PT, BMP3M, PHOS3, MG3, CK3 #### [address] #### VD25H #### [facility] [address] [place] [address] GFR/1.73 sq M predicted among non-blacks MDRD vol rate/area (S/P/Bld) mL/min/{1.73_m2} Normal >60 [facility] Comment on above: Result Comment: Sour ce- MDRD equation with creatinine calibration to IDMS(NKDEP) eGFR not recommended for drug dose adjustment Performed By: #### H EMDF, PT, BMP3M, PHOS3, MG3, CK3 #### [address] #### VD25H #### [facility] [address] [place] [address] Glucose mass conc 103 mg/dL High 70-100 [facility] Comment on above: Performed By: #### H EMDF, PT, BMP3M, PHOS3, MG3, CK3 #### [address] [place] #### VD25H #### [facility] [address] [place] [address] Urea nitrogen mass conc 20 mg/dL Normal 7-20 S [facility] Comment on above: Performed By: #### H EMDF, PT, BMP3M, PHOS3, MG3, CK3 #### [address] [place] #### VD25H #### [facility] [address] [place] [address] Chloride molar conc 107 mmol/L Normal 98-107 [facility] Comment on above: Performed By: #### H EMDF, PT, BMP3M, PHOS3, MG3, CK3 #### [address] [address] [place], [place] #### VD25H #### [facility] [address] [place] [address] Potassium molar conc 3.7 mmol/L Normal 3.5-5.1 [facility] Comment on above: Performed By: #### H EMDF, PT, BMP3M, PHOS3, MG3, CK3 #### [address] [place] #### VD25H #### [facility] [address] [place] [address] Sodium molar conc 145 mmol/L Normal 135-145 [facility] Comment on above: Performed By: #### H EMDF, PT, BMP3M, PHOS3, MG3, CK3 #### [address] [place] #### VD25H #### [facility] [address] [place] [address] CR Abdomen APon 07-16-2018 CR Abdomen AP Patient Name: KATHYA HOOPER Diagnostic Radiology Exam Date/Time 07/16/2018 08:00:58 EDT Exam CR Abdomen AP Ordering Physician [id number] -JOYA OCAMPO Accession Number [id number] CPT4 Codes 40284 () Reason For Exam ileus Report KUB [...] Transcribed Date and Time: 07/16/2018 10:03 Normal [facility] CR Chest Portableon 07-17-19 CR Chest Portable Patient Name: KATHYA HOOPER Diagnostic Radiology Exam Date/Time 07/16/2018 06:19:28 EDT Exam CR Chest Portable Ordering Physician MARIA EUGENIA PEREZ Accession Number [id number] CPT4 Codes 32250 () Reason For Exam ETT placement Report [...] Transcribed Date and Time: 07/16/2018 10:10 Normal [facility] Hemogram w/ Autodiffon 07-16 Abs Baso Cnt 0.0 10*3/uL Normal 0.0-0.2 [facility] Comment on above: Performed By: #### H EMDF, PT, BMP3M, PHOS3, MG3, CK3 #### [facility] [address] [place], [place] #### VD25H #### [facility] [address] [place] [address] Abs Neutrophile Cnt 8.7 10*3/uL High 1.8-7.0 [facility] Comment on above: Performed By: #### H EMDF, PT, BMP3M, PHOS3, MG3, CK3 #### [facility] [address] [place], [place] #### VD25H #### [facility] [address] [place] [address] Basophils/100 WBC (Bld) 0.2 % Normal 0.0-2.0 [facility] Comment on above: Performed By: #### H EMDF, PT, BMP3M, PHOS3, MG3, CK3 #### [address] #### VD25H #### [facility] [address] [place] [address] Eosinophils #/vol (Bld) 0.1 10*3/uL Normal 0.0-0.5 [facility] Comment on above: Performed By: #### H EMDF, PT, BMP3M, PHOS3, MG3, CK3 #### [address] #### VD25H #### [facility] [address] [place] [address] Eosinophils/100 WBC (Bld) 0.7 % Low 1.0-6.0 [facility] Comment on above: Performed By: #### H EMDF, PT, BMP3M, PHOS3, MG3, CK3 #### [facility] [address] [place], [place] #### VD25H #### [facility] [address] [place] [address] Erythrocyte distribution width Ratio (RBC) 13.7 % Normal 11.5-14.5 [facility] Comment on above: Performed By: #### H EMDF, PT, BMP3M, PHOS3, MG3, CK3 #### [address] #### VD25H #### [facility] [address] [place] [address] Granulocytes/100 WBC (Bld) 83.0 % High 40.0-80.0 [facility] Comment on above: Performed By: #### H EMDF, PT, BMP3M, PHOS3, MG3, CK3 #### [address] #### VD25H #### [facility] [address] [place] [address] Hematocrit Volume Fraction (Bld) 30.3 % Low 40.0-52.0 [facility] Comment on above: Performed By: #### H EMDF, PT, BMP3M, PHOS3, MG3, CK3 #### [address] #### VD25H #### [facility] [address] [place] [address] Hemoglobin mass conc (Bld) 10.5 g/dL Low 13.0-18.0 [facility] Comment on above: Performed By: #### H EMDF, PT, BMP3M, PHOS3, MG3, CK3 #### [address] #### VD25H #### [facility] [address] [place] [address] Lymphocytes #/vol (Bld) 0.7 10*3/uL Low 1.0-4.3 [facility] Comment on above: Performed By: #### H EMDF, PT, BMP3M, PHOS3, MG3, CK3 #### [address] #### VD25H #### [facility] [address] [place] [address] Lymphocytes/100 WBC (Bld) 6.7 % Low 20.0-40.0 [facility] Comment on above: Performed By: #### H EMDF, PT, BMP3M, PHOS3, MG3, CK3 #### [address] #### VD25H #### [facility] [address] [place] [address] MCH Entitic mass (RBC) 30.2 pg Normal 26.0-34.0 [facility] Comment on above: Performed By: #### H EMDF, PT, BMP3M, PHOS3, MG3, CK3 #### [address] #### VD25H #### [facility] [address] [place] [address] MCHC mass conc (RBC) 34.6 % Normal 32.0-36.0 [facility] Comment on above: Performed By: #### H EMDF, PT, BMP3M, PHOS3, MG3, CK3 #### [address] #### VD25H #### [facility] [address] [place] [address] MCV Entitic volume (RBC) 87.3 fL Normal 80.0-98.0 [facility] Comment on above: Performed By: #### H EMDF, PT, BMP3M, PHOS3, MG3, CK3 #### [address] #### VD25H #### [facility] [address] [place] [address] Monocytes #/vol (Bld) 1.0 10*3/uL High 0.0-0.8 [facility] Comment on above: Performed By: #### H EMDF, PT, BMP3M, PHOS3, MG3, CK3 #### [place] [address] [place], [place] #### VD25H #### [facility] [address] [place] [address] Monocytes/100 WBC (Bld) 9.4 % Normal 2.0-10.0 [facility] Comment on above: Performed By: #### H EMDF, PT, BMP3M, PHOS3, MG3, CK3 #### [place] [address] [place], [place] #### VD25H #### [place] [address] [place] [address] Platelet mean volume Entitic volume (Bld) 6.9 fL Low 7.4-10.4 [facility] Comment on above: Performed By: #### H EMDF, PT, BMP3M, PHOS3, MG3, CK3 #### [address] #### VD25H #### [facility] [address] [place] [address] Platelets #/vol (Bld) 254 10*3/uL Normal 140-440 [facility] Comment on above: Performed By: #### H EMDF, PT, BMP3M, PHOS3, MG3, CK3 #### [address] #### VD25H #### [facility] [address] [place] [address] RBC #/vol (Bld) 3.47 10*6/uL Low 4.40-5.90 [facility] Comment on above: Performed By: #### H EMDF, PT, BMP3M, PHOS3, MG3, CK3 #### [address] #### VD25H #### [facility] [address] [place] [address] WBC #/vol (Bld) 10.5 10*3/uL Normal 3.6-10.7 [facility] Comment on above: Performed By: #### H EMDF, PT, BMP3M, PHOS3, MG3, CK3 #### [place] [address] [place], [place] #### VD25H #### [facility] [address] [place] [address] Arterial Blood Gaseson 07-15 CO2 molar conc 26.7 mmol/L Normal 23.0-27.0 [facility] Comment on above: Performed By: #### H EMDF, PT, BMP3M, PHOS3, MG3, CK3 #### [place] [address] [place] #### VD25H #### [place] [address] [place] [address] FIO2 50% Normal [facility] Comment on above: Performed By: #### H EMDF, PT, BMP3M, PHOS3, MG3, CK3 #### [place] [address] [place] #### VD25H #### [place] [address] [place] [address] HCO3 molar conc (Bld) 25.7 mmol/L High 21.0-25.0 [facility] Comment on above: Performed By: #### H EMDF, PT, BMP3M, PHOS3, MG3, CK3 #### [address] #### VD25H #### [place] [address] [place] [address] Hemoglobin mass conc (Bld) 12.5 g/dL Normal [facility] Comment on above: Performed By: #### H EMDF, PT, BMP3M, PHOS3, MG3, CK3 #### [address] [place], [place] #### VD25H #### [facility] [address] [place] [address] Oxygen ppres (Bld) 90.4 mm[Hg] Normal 80.0-100.0 [facility] Comment on above: Performed By: #### H EMDF, PT, BMP3M, PHOS3, MG3, CK3 #### [facility] [address] [place], [place] #### VD25H #### [facility] [address] [place] [address] Oxygen saturation in Blood 96.8 % Normal 95.0-100.0 [facility] Comment on above: Performed By: #### H EMDF, PT, BMP3M, PHOS3, MG3, CK3 #### [address] #### VD25H #### [place] [address] [place] [address] pCO2 33.4 mm[Hg] Low 35.0-45.0 [facility] Comment on above: Performed By: #### H EMDF, PT, BMP3M, PHOS3, MG3, CK3 #### [place] [address] [facility], [place] #### VD25H #### [facility] [address] [place] [address] pH (Bld) 7.504 High 7.350-7.450 [facility] Comment on above: Performed By: #### H EMDF, PT, BMP3M, PHOS3, MG3, CK3 #### [address] [place], [place] #### VD25H #### [facility] [address] [place] [address] Std Base Excess 2.9 mmol/L Normal -3.0-3.0 [facility] Comment on above: Performed By: #### H EMDF, PT, BMP3M, PHOS3, MG3, CK3 #### [place] [address] [facility], [place] #### VD25H #### [facility] [address] [place] [address] Basic Metabolic Panelon 06-29 Anion gap molar conc 8 Normal [facility] Comment on above: Performed By: #### H EMDF, PT, BMP3M, PHOS3, MG3, CK3 #### [place] [address] [facility], [place] #### VD25H #### [facility] [address] [place] [address] Calcium mass conc 8.6 mg/dL Normal 8.4-10.4 [facility] Comment on above: Performed By: #### H EMDF, PT, BMP3M, PHOS3, MG3, CK3 #### [address], [place] #### VD25H #### [facility] [address] [place] [address] CO2 molar conc 29 mmol/L Normal 22-30 [facility] Comment on above: Performed By: #### H EMDF, PT, BMP3M, PHOS3, MG3, CK3 #### [place] [address] [facility], [place] #### VD25H #### [facility] [address] [place] [address] Glucose mass conc 119 mg/dL High 70-100 [facility] Comment on above: Performed By: #### H EMDF, PT, BMP3M, PHOS3, MG3, CK3 #### [place] [address] [facility], [place] #### VD25H #### [facility] [address] [place] [address] Urea nitrogen mass conc 23 mg/dL High 7-20 [facility] Comment on above: Performed By: #### H EMDF, PT, BMP3M, PHOS3, MG3, CK3 #### [place] [address] [facility], [place] #### VD25H #### [facility] [address] [place] [address] Creatinine mass conc 0.73 mg/dL Normal 0.52-1.25 [facility] Comment on above: Performed By: #### H EMDF, PT, BMP3M, PHOS3, MG3, CK3 #### [address] #### VD25H #### [facility] [address] [place] [address] GFR/1.73 sq M predicted among blacks MDRD vol rate/area (S/P/Bld) mL/min/{1.73_m2} Normal >60 [facility] Comment on above: Performed By: #### H EMDF, PT, BMP3M, PHOS3, MG3, CK3 #### [address] #### VD25H #### [place] [address] [place] [address] GFR/1.73 sq M predicted among non-blacks MDRD vol rate/area (S/P/Bld) mL/min/{1.73_m2} Normal >60 [facility] Comment on above: Result Comment: Sour ce- MDRD equation with creatinine calibration to IDMS(NKDEP) eGFR not recommended for drug dose adjustment Performed By: #### H EMDF, PT, BMP3M, PHOS3, MG3, CK3 #### [address] #### VD25H #### [facility] [address] [place] [address] Potassium molar conc 4.1 mmol/L Normal 3.5-5.1 [facility] Comment on above: Performed By: #### H EMDF, PT, BMP3M, PHOS3, MG3, CK3 #### [address] #### VD25H #### [facility] [address] [place] [address] Sodium molar conc 144 mmol/L Normal 135-145 [facility] Comment on above: Performed By: #### H EMDF, PT, BMP3M, PHOS3, MG3, CK3 #### [facility] [address] [place] [address] #### VD25H #### [facility] [address] [place] [address] Chloride molar conc 107 mmol/L Normal 98-107 [facility] Comment on above: Performed By: #### H EMDF, PT, BMP3M, PHOS3, MG3, CK3 #### [facility] [address] [place] [address] #### VD25H #### [facility] [address] [place] [address] CR Abdomen APon 07-15-2018 CR Abdomen AP Patient Name: KATHYA HOOPER Diagnostic Radiology Exam Date/Time 07/15/2018 09:25:44 EDT Exam CR Abdomen AP Ordering Physician [id number] JOYA PERRY Accession Number [id number] CPT4 Codes 52608 () Reason For Exam ileus Report EXAMINATION: [...] Transcribed Date and Time: 07/15/2018 10:07 Normal [facility] CR Chest Portableon 07-16-19 19 CR Chest Portable Patient Name: KATHYA HOOPER Diagnostic Radiology Exam Date/Time 07/15/2018 06:00:00 EDT Exam CR Chest Portable Ordering Physician CHRIS MARIA EUGENIA Accession Number [id number] CPT4 Codes 05160 () Reason For Exam ETT placement Report [...] Transcribed Date and Time: 07/15/2018 9:14 Normal [facility] CULT./ST. RESPIRATORYon 06-29 CULT./ST. RESPIRATORY CULT./ST. [...] in clusters. Rare gram negative bacilli. Normal [facility] Comment on above: Order Comment: Speci men Source Comment:Sputum, Suctioned Performed By: #### H EMDF, PT, BMP3M, PHOS3, MG3, CK3 #### [facility] [address] [place] [address] #### VD25H #### [facility] [address] [place] [address] Hemogram w/ Autodiffon 07-15 Abs Baso Cnt 0.0 10*3/uL Normal 0.0-0.2 [facility] Comment on above: Performed By: #### H EMDF, PT, BMP3M, PHOS3, MG3, CK3 #### [facility] [address] [place], [place] #### VD25H #### [facility] [address] [place] [address] Abs Neutrophile Cnt 13.2 10*3/uL High 1.8-7.0 [facility] Comment on above: Performed By: #### H EMDF, PT, BMP3M, PHOS3, MG3, CK3 #### [address] #### VD25H #### [facility] [address] [place] [address] Basophils/100 WBC (Bld) 0.2 % Normal 0.0-2.0 [facility] Comment on above: Performed By: #### H EMDF, PT, BMP3M, PHOS3, MG3, CK3 #### [address] #### VD25H #### [facility] [address] [place] [address] Eosinophils #/vol (Bld) 0.0 10*3/uL Normal 0.0-0.5 [facility] Comment on above: Performed By: #### H EMDF, PT, BMP3M, PHOS3, MG3, CK3 #### [address] [place], [place] #### VD25H #### [facility] [address] [place] [address] Eosinophils/100 WBC (Bld) 0.1 % Low 1.0-6.0 [facility] Comment on above: Performed By: #### H EMDF, PT, BMP3M, PHOS3, MG3, CK3 #### [address] #### VD25H #### [facility] [address] [place] [address] Erythrocyte distribution width Ratio (RBC) 13.9 % Normal 11.5-14.5 [facility] Comment on above: Performed By: #### H EMDF, PT, BMP3M, PHOS3, MG3, CK3 #### [address] #### VD25H #### [facility] [address] [place] [address] Granulocytes/100 WBC (Bld) 88.1 % High 40.0-80.0 [facility] Comment on above: Performed By: #### H EMDF, PT, BMP3M, PHOS3, MG3, CK3 #### [address] #### VD25H #### [place] [address] [place] [address] Hematocrit Volume Fraction (Bld) 35.3 % Low 40.0-52.0 [facility] Comment on above: Performed By: #### H EMDF, PT, BMP3M, PHOS3, MG3, CK3 #### [address] #### VD25H #### [facility] [address] [place] [address] Hemoglobin mass conc (Bld) 11.9 g/dL Low 13.0-18.0 [facility] Comment on above: Performed By: #### H EMDF, PT, BMP3M, PHOS3, MG3, CK3 #### [address] #### VD25H #### [facility] [address] [place] [address] Lymphocytes #/vol (Bld) 0.8 10*3/uL Low 1.0-4.3 [facility] Comment on above: Performed By: #### H EMDF, PT, BMP3M, PHOS3, MG3, CK3 #### [address] #### VD25H #### [facility] [address] [place] [address] Lymphocytes/100 WBC (Bld) 5.0 % Low 20.0-40.0 [facility] Comment on above: Performed By: #### H EMDF, PT, BMP3M, PHOS3, MG3, CK3 #### [address] #### VD25H #### [facility] [address] [place] [address] MCH Entitic mass (RBC) 29.5 pg Normal 26.0-34.0 [facility] Comment on above: Performed By: #### H EMDF, PT, BMP3M, PHOS3, MG3, CK3 #### [address] #### VD25H #### [place] [address] [place] [address] MCHC mass conc (RBC) 33.8 % Normal 32.0-36.0 [facility] Comment on above: Performed By: #### H EMDF, PT, BMP3M, PHOS3, MG3, CK3 #### [address] #### VD25H #### [facility] [address] [place] [address] MCV Entitic volume (RBC) 87.2 fL Normal 80.0-98.0 [facility] Comment on above: Performed By: #### H EMDF, PT, BMP3M, PHOS3, MG3, CK3 #### [address] #### VD25H #### [facility] [address] [place] [address] Monocytes #/vol (Bld) 1.0 10*3/uL High 0.0-0.8 [facility] Comment on above: Performed By: #### H EMDF, PT, BMP3M, PHOS3, MG3, CK3 #### [address] #### VD25H #### [facility] [address] [place] [address] Monocytes/100 WBC (Bld) 6.6 % Normal 2.0-10.0 [facility] Comment on above: Performed By: #### H EMDF, PT, BMP3M, PHOS3, MG3, CK3 #### [place] [address] [place] #### VD25H #### [facility] [address] [place] [address] Platelet mean volume Entitic volume (Bld) 7.9 fL Normal 7.4-10.[address] [facility] Comment on above: Performed By: #### H EMDF, PT, BMP3M, PHOS3, MG3, CK3 #### [place] [address] [place] #### VD25H #### [facility] [address] [place] [address] Platelets #/vol (Bld) 319 10*3/uL Normal 140-440 [facility] Comment on above: Performed By: #### H EMDF, PT, BMP3M, PHOS3, MG3, CK3 #### [place] [address] [place] #### VD25H #### [facility] [address] [place] [address] RBC #/vol (Bld) 4.05 10*6/uL Low 4.40-5.[address] [facility] Comment on above: Performed By: #### H EMDF, PT, BMP3M, PHOS3, MG3, CK3 #### [place] [address] [place] #### VD25H #### [facility] [address] [place] [address] WBC #/vol (Bld) 15.0 10*3/uL High 3.6-10.[address] [facility] Comment on above: Performed By: #### H EMDF, PT, BMP3M, PHOS3, MG3, CK3 #### [place] [address] [place] #### VD25H #### [facility] [address] [place] [address] Basic Metabolic Panelon - Anion gap molar conc 9 Normal [facility] Comment on above: Performed By: #### H EMDF, PT, BMP3M, PHOS3, MG3, CK3 #### [place] [address] [facility] #### VD25H #### [facility] [address] [place] [address] Calcium mass conc 7.6 mg/dL Low 8.4-10.4 [facility] Comment on above: Performed By: #### H EMDF, PT, BMP3M, PHOS3, MG3, CK3 #### [place] [address] [place] #### VD25H #### [facility] [address] [place] [address] CO2 molar conc 26 mmol/L Normal 22-30 [facility] Comment on above: Performed By: #### H EMDF, PT, BMP3M, PHOS3, MG3, CK3 #### [place] [address] [place] #### VD25H #### [facility] [address] [place] [address] Glucose mass conc 148 mg/dL High 70-100 [facility] Comment on above: Performed By: #### H EMDF, PT, BMP3M, PHOS3, MG3, CK3 #### [place] [address] [facility] #### VD25H #### [facility] [address] [place] [address] Urea nitrogen mass conc 16 mg/dL Normal 7-20 [facility] Comment on above: Performed By: #### H EMDF, PT, BMP3M, PHOS3, MG3, CK3 #### [address] [address] [place], [place] #### VD25H #### [facility] [address] [place] [address] Creatinine mass conc 0.62 mg/dL Normal 0.52-1.25 [facility] Comment on above: Performed By: #### H EMDF, PT, BMP3M, PHOS3, MG3, CK3 #### [address] #### VD25H #### [facility] [address] [place] [address] GFR/1.73 sq M predicted among blacks MDRD vol rate/area (S/P/Bld) mL/min/{1.73_m2} Normal >60 [facility] Comment on above: Performed By: #### H EMDF, PT, BMP3M, PHOS3, MG3, CK3 #### [address] #### VD25H #### [facility] [address] [place] [address] GFR/1.73 sq M predicted among non-blacks MDRD vol rate/area (S/P/Bld) mL/min/{1.73_m2} Normal >60 [facility] Comment on above: Result Comment: Sour ce- MDRD equation with creatinine calibration to IDMS(NKDEP) eGFR not recommended for drug dose adjustment Performed By: #### H EMDF, PT, BMP3M, PHOS3, MG3, CK3 #### [address] #### VD25H #### [facility] [address] [place] [address] Potassium molar conc 4.5 mmol/L Normal 3.5-5.1 [facility] Comment on above: Performed By: #### H EMDF, PT, BMP3M, PHOS3, MG3, CK3 #### [address] #### VD25H #### [facility] [address] [place] [address] Sodium molar conc 137 mmol/L Normal 135-145 [facility] Comment on above: Performed By: #### H EMDF, PT, BMP3M, PHOS3, MG3, CK3 #### [facility] [address] [place] [address] #### VD25H #### [facility] [address] [place] [address] Chloride molar conc 103 mmol/L Normal 98-107 [facility] Comment on above: Performed By: #### H EMDF, PT, BMP3M, PHOS3, MG3, CK3 #### [facility] [address] [place] [address] #### VD25H #### [facility] [address] [place] [address] CR Abdomen APon 07-14-2018 CR Abdomen AP Patient Name: KATHYA HOOPER Diagnostic Radiology Exam Date/Time 07/14/2018 19:15:43 EDT Exam CR Abdomen AP Ordering Physician [id number] AGUILERA Accession Number [id number] CPT4 Codes 06143 () Reason For Exam Distended with emesis [...] Transcribed Date and Time: 07/14/2018 7:28 Normal [facility] CR Chest Portableon 07-15-19 19 CR Chest Portable Patient Name: KATHYA HOOPER Diagnostic Radiology Exam Date/Time 07/14/2018 06:53:29 EDT Exam CR Chest Portable Ordering Physician MARIA EUGENIA PEREZ Accession Number [id number] CPT4 Codes 45611 () Reason For Exam ETT placement Report [...] Transcribed Date and Time: 07/14/2018 11:51 Normal [facility] Hemogram w/ Autodiffon 07-14 Abs Baso Cnt 0.0 10*3/uL Normal 0.0-0.2 [facility] Comment on above: Performed By: #### H EMDF, PT, BMP3M, PHOS3, MG3, CK3 #### [facility] [address] [place], [place] #### VD25H #### [facility] [address] [place] [address] Abs Neutrophile Cnt 11.7 10*3/uL High 1.8-7.0 [facility] Comment on above: Performed By: #### H EMDF, PT, BMP3M, PHOS3, MG3, CK3 #### [facility] [address] [place], [place] #### VD25H #### [facility] [address] [place] [address] Basophils/100 WBC (Bld) 0.3 % Normal 0.0-2.0 [facility] Comment on above: Performed By: #### H EMDF, PT, BMP3M, PHOS3, MG3, CK3 #### [facility] [address] [place] #### VD25H #### [facility] [address] [place] [address] Eosinophils #/vol (Bld) 0.0 10*3/uL Normal 0.0-0.5 [facility] Comment on above: Performed By: #### H EMDF, PT, BMP3M, PHOS3, MG3, CK3 #### [address] #### VD25H #### [facility] [address] [place] [address] Eosinophils/100 WBC (Bld) 0.1 % Low 1.0-6.0 [facility] Comment on above: Performed By: #### H EMDF, PT, BMP3M, PHOS3, MG3, CK3 #### [address] #### VD25H #### [facility] [address] [place] [address] Erythrocyte distribution width Ratio (RBC) 13.8 % Normal 11.5-14.5 [facility] Comment on above: Performed By: #### H EMDF, PT, BMP3M, PHOS3, MG3, CK3 #### [address] #### VD25H #### [facility] [address] [place] [address] Granulocytes/100 WBC (Bld) 89.1 % High 40.0-80.0 [facility] Comment on above: Performed By: #### H EMDF, PT, BMP3M, PHOS3, MG3, CK3 #### [address] #### VD25H #### [facility] [address] [place] [address] Hematocrit Volume Fraction (Bld) 33.8 % Low 40.0-52.0 [facility] Comment on above: Performed By: #### H EMDF, PT, BMP3M, PHOS3, MG3, CK3 #### [address] #### VD25H #### [facility] [address] [place] [address] Hemoglobin mass conc (Bld) 11.5 g/dL Low 13.0-18.0 [facility] Comment on above: Performed By: #### H EMDF, PT, BMP3M, PHOS3, MG3, CK3 #### [address] #### VD25H #### [place] [address] [place] [address] Lymphocytes #/vol (Bld) 0.6 10*3/uL Low 1.0-4.3 [facility] Comment on above: Performed By: #### H EMDF, PT, BMP3M, PHOS3, MG3, CK3 #### [address] #### [id number] #### [place] [address] [place] [address] Lymphocytes/100 WBC (Bld) 4.5 % Low 20.0-40.0 [facility] Comment on above: Performed By: #### H EMDF, PT, BMP3M, PHOS3, MG3, CK3 #### [address] #### [id number] #### [facility] [address] [place] [address] MCH Entitic mass (RBC) 29.6 pg Normal 26.0-34.0 [facility] Comment on above: Performed By: #### H EMDF, PT, BMP3M, PHOS3, MG3, CK3 #### [address], [place] #### [id number] #### [facility] [address] [place] [address] MCHC mass conc (RBC) 33.9 % Normal 32.0-36.0 [facility] Comment on above: Performed By: #### H EMDF, PT, BMP3M, PHOS3, MG3, CK3 #### [address] #### [id number] #### [facility] [facility] [address] [place] [address] MCV Entitic volume (RBC) 87.3 fL Normal 80.0-98.0 [facility] Comment on above: Performed By: #### H EMDF, PT, BMP3M, PHOS3, MG3, CK3 #### [address] #### VD25H #### [facility] [address] [place] [address] Monocytes #/vol (Bld) 0.8 10*3/uL Normal 0.0-0.8 [facility] Comment on above: Performed By: #### H EMDF, PT, BMP3M, PHOS3, MG3, CK3 #### [address] #### VD25H #### [place] [address] [place] [place] [address] Monocytes/100 WBC (Bld) 6.0 % Normal 2.0-10.0 [facility] Comment on above: Performed By: #### H EMDF, PT, BMP3M, PHOS3, MG3, CK3 #### [address] #### VD25H #### [facility] [address] [place] [address] Platelet mean volume Entitic volume (Bld) 8.1 fL Normal 7.4-10.4 [facility] Comment on above: Performed By: #### H EMDF, PT, BMP3M, PHOS3, MG3, CK3 #### [facility] [address] [place] #### VD25H #### [facility] [address] [place] [address] Platelets #/vol (Bld) 196 10*3/uL Normal 140-440 [facility] Comment on above: Performed By: #### H EMDF, PT, BMP3M, PHOS3, MG3, CK3 #### [place] [address] [place] #### VD25H #### [place] [address] [place] [address] RBC #/vol (Bld) 3.87 10*6/uL Low 4.40-5.90 [facility] Comment on above: Performed By: #### H EMDF, PT, BMP3M, PHOS3, MG3, CK3 #### [place] [address] [place] #### VD25H #### [place] [address] [place] [address] WBC #/vol (Bld) 13.2 10*3/uL High 3.6-10.7 [facility] Comment on above: Performed By: #### H EMDF, PT, BMP3M, PHOS3, MG3, CK3 #### [address] [place], [place] #### VD25H #### [place] [address] [place] [address] Add on test from HISon 07-13 Add on test from HIS Rejected Normal [facility] Comment on above: Result Comment: No s pecimen available for addon. Performed By: #### H EMDF, PT, BMP3M, PHOS3, MG3, CK3 #### [place] [address] [place] #### VD25H #### [facility] [address] [place] [address] Arterial Blood Gaseson 07-13 CO2 molar conc 25.6 mmol/L Normal 23.0-27.0 [facility] Comment on above: Performed By: #### H EMDF, PT, BMP3M, PHOS3, MG3, CK3 #### [address] #### VD25H #### [facility] [address] [place] [address] HCO3 molar conc (Bld) 24.5 mmol/L Normal 21.0-25.0 [facility] Comment on above: Performed By: #### H EMDF, PT, BMP3M, PHOS3, MG3, CK3 #### [address] #### VD25H #### [address] [place] [address] Hemoglobin mass conc (Bld) 9.7 g/dL Normal ScreenOnly [facility] Comment on above: Performed By: #### H EMDF, PT, BMP3M, PHOS3, MG3, CK3 #### [address] #### VD25H #### [facility] [address] [facility] [facility] [place] [address] Oxygen ppres (Bld) 99.9 mm[Hg] Normal 80.0-100.0 [facility] Comment on above: Performed By: #### H EMDF, PT, BMP3M, PHOS3, MG3, CK3 #### [address] #### VD25H #### [facility] [address] [place] [address] Oxygen saturation in Blood 97.5 % Normal 95.0-100.0 [facility] Comment on above: Performed By: #### H EMDF, PT, BMP3M, PHOS3, MG3, CK3 #### [address] #### VD25H #### [facility] [address] [place] [address] pCO2 36.0 mm[Hg] Normal 35.0-45.0 [facility] Comment on above: Performed By: #### H EMDF, PT, BMP3M, PHOS3, MG3, CK3 #### [facility] [address] [place] #### VD25H #### [facility] [address] [place] [address] pH (Bld) 7.450 Normal 7.350-7.450 [facility] Comment on above: Performed By: #### H EMDF, PT, BMP3M, PHOS3, MG3, CK3 #### [address] #### VD25H #### [facility] [address] [place] [address] Std Base Excess 0.6 mmol/L Normal -3.0-3.0 [facility] Comment on above: Performed By: #### H EMDF, PT, BMP3M, PHOS3, MG3, CK3 #### [address] #### VD25H #### [facility] [address] [place] [address] FIO2 .50 Normal [facility] Comment on above: Performed By: #### H EMDF, PT, BMP3M, PHOS3, MG3, CK3 #### [address] #### VD25H #### [facility] [address] [place] [address] Basic Metabolic Panelon 06-29 Calcium mass conc 7.6 mg/dL Low 8.4-10.4 [facility] Comment on above: Performed By: #### H EMDF, PT, BMP3M, PHOS3, MG3, CK3 #### [address] #### VD25H #### [facility] [address] [place] [address] Glucose mass conc 120 mg/dL High 70-100 [facility] Comment on above: Performed By: #### H EMDF, PT, BMP3M, PHOS3, MG3, CK3 #### [facility] [address] [place] [address] #### VD25H #### [facility] [address] [place] [address] Anion gap molar conc 7 Normal [facility] Comment on above: Performed By: #### H EMDF, PT, BMP3M, PHOS3, MG3, CK3 #### [place] [address] [place] #### VD25H #### [facility] [address] [place] [address] CO2 molar conc 27 mmol/L Normal 22-30 [facility] Comment on above: Performed By: #### H EMDF, PT, BMP3M, PHOS3, MG3, CK3 #### [place] [address] [place] #### VD25H #### [facility] [address] [place] [address] Creatinine mass conc 0.62 mg/dL Normal 0.52-1.25 [facility] Comment on above: Performed By: #### H EMDF, PT, BMP3M, PHOS3, MG3, CK3 #### [place] [address] [place] #### VD25H #### [facility] [address] [place] [address] GFR/1.73 sq M predicted among blacks MDRD vol rate/area (S/P/Bld) mL/min/{1.73_m2} Normal >60 [facility] Comment on above: Performed By: #### H EMDF, PT, BMP3M, PHOS3, MG3, CK3 #### [place] [address] [place] #### VD25H #### [facility] [address] [place] [address] GFR/1.73 sq M predicted among non-blacks MDRD vol rate/area (S/P/Bld) mL/min/{1.73_m2} Normal >60 [facility] Comment on above: Result Comment: Sour ce- MDRD equation with creatinine calibration to IDMS(NKDEP) eGFR not recommended for drug dose adjustment Performed By: #### H EMDF, PT, BMP3M, PHOS3, MG3, CK3 #### [facility] [address] [place] #### VD25H #### [facility] [address] [place] [address] Urea nitrogen mass conc 17 mg/dL Normal 7-20 [facility] Comment on above: Performed By: #### H EMDF, PT, BMP3M, PHOS3, MG3, CK3 #### [address] #### VD25H #### [facility] [address] [place] [address] Chloride molar conc 105 mmol/L Normal 98-107 [facility] Comment on above: Performed By: #### H EMDF, PT, BMP3M, PHOS3, MG3, CK3 #### [address] #### VD25H #### [facility] [address] [place] [address] Potassium molar conc 3.8 mmol/L Normal 3.5-5.1 [facility] Comment on above: Performed By: #### H EMDF, PT, BMP3M, PHOS3, MG3, CK3 #### [address], [place] #### VD25H #### [facility] [address] [place] [address] Sodium molar conc 139 mmol/L Normal 135-145 [facility] Comment on above: Performed By: #### H EMDF, PT, BMP3M, PHOS3, MG3, CK3 #### [address] [address] #### VD25H #### [facility] [employer] [facility] [address] [place] [address] CR Chest Portableon 07-14-19 19 CR Chest Portable Patient Name: KATHYA HOOPER Diagnostic Radiology Exam Date/Time 07/13/2018 06:05:45 EDT Exam CR Chest Portable Ordering Physician MARIA EUGENIA PEREZ Accession Number [id number] CPT4 Codes 55039 () Reason For Exam ETT placement Report [...] Transcribed Date and Time: 07/13/2018 6:33 Normal [facility] Calcium,Ionizedon 07-13-2018 Ionized Ca,Measured 4.10 mg/dL Low 4.30-5.20 [facility] Comment on above: Performed By: #### H EMDF, PT, BMP3M, PHOS3, MG3, CK3 #### [facility] [address] [place] [address] #### VD25H #### [facility] [employer] [facility] [address] [place] [address] pH, Ionized Calcium 7.40 Normal 7.31-7.46 [facility] Comment on above: Performed By: #### H EMDF, PT, BMP3M, PHOS3, MG3, CK3 #### [facility] [address] [place] #### VD25H #### [facility] [address] [place] [address] Hemogram w/ Autodiffon 07-13 Abs Baso Cnt 0.0 10*3/uL Normal 0.0-0.2 [facility] Comment on above: Performed By: #### H EMDF, PT, BMP3M, PHOS3, MG3, CK3 #### [address] #### VD25H #### [facility] [address] [place] [address] Abs Neutrophile Cnt 11.2 10*3/uL High 1.8-7.0 [facility] Comment on above: Performed By: #### H EMDF, PT, BMP3M, PHOS3, MG3, CK3 #### [address] #### VD25H #### [facility] [address] [place] [address] Basophils/100 WBC (Bld) 0.3 % Normal 0.0-2.0 [facility] Comment on above: Performed By: #### H EMDF, PT, BMP3M, PHOS3, MG3, CK3 #### [address] #### VD25H #### [facility] [address] [place] [address] Eosinophils #/vol (Bld) 0.2 10*3/uL Normal 0.0-0.5 [facility] Comment on above: Performed By: #### H EMDF, PT, BMP3M, PHOS3, MG3, CK3 #### [address] #### VD25H #### [facility] [address] [place] [address] Eosinophils/100 WBC (Bld) 1.1 % Normal 1.0-6.0 [facility] Comment on above: Performed By: #### H EMDF, PT, BMP3M, PHOS3, MG3, CK3 #### [address] #### VD25H #### [facility] [address] [place] [address] Erythrocyte distribution width Ratio (RBC) 13.9 % Normal 11.5-14.5 [facility] Comment on above: Performed By: #### H EMDF, PT, BMP3M, PHOS3, MG3, CK3 #### [address] #### VD25H #### [facility] [address] [place] [address] Granulocytes/100 WBC (Bld) 82.2 % High 40.0-80.0 [facility] Comment on above: Performed By: #### H EMDF, PT, BMP3M, PHOS3, MG3, CK3 #### [address] #### VD25H #### [facility] [address] [place] [address] Hematocrit Volume Fraction (Bld) 36.7 % Low 40.0-52.0 [facility] Comment on above: Performed By: #### H EMDF, PT, BMP3M, PHOS3, MG3, CK3 #### [address] #### VD25H #### [facility] [address] [place] [address] Hemoglobin mass conc (Bld) 12.6 g/dL Low 13.0-18.0 [facility] Comment on above: Performed By: #### H EMDF, PT, BMP3M, PHOS3, MG3, CK3 #### [address] #### VD25H #### [facility] [address] [place] [address] Lymphocytes #/vol (Bld) 1.1 10*3/uL Normal 1.0-4.3 [facility] Comment on above: Performed By: #### H EMDF, PT, BMP3M, PHOS3, MG3, CK3 #### [address] #### VD25H #### [facility] [address] [place] [address] Lymphocytes/100 WBC (Bld) 8.2 % Low 20.0-40.0 [facility] Comment on above: Performed By: #### H EMDF, PT, BMP3M, PHOS3, MG3, CK3 #### [address] #### VD25H #### [place] [address] [place] [address] MCH Entitic mass (RBC) 29.6 pg Normal 26.0-34.0 [facility] Comment on above: Performed By: #### H EMDF, PT, BMP3M, PHOS3, MG3, CK3 #### [address] #### VD25H #### [place] [address] [place] [address] MCHC mass conc (RBC) 34.4 % Normal 32.0-36.0 [facility] Comment on above: Performed By: #### H EMDF, PT, BMP3M, PHOS3, MG3, CK3 #### [address] #### VD25H #### [facility] [address] [place] [address] MCV Entitic volume (RBC) 86.2 fL Normal 80.0-98.0 [facility] Comment on above: Performed By: #### H EMDF, PT, BMP3M, PHOS3, MG3, CK3 #### [address] #### VD25H #### [facility] [address] [place] [address] Monocytes #/vol (Bld) 1.1 10*3/uL High 0.0-0.8 [facility] Comment on above: Performed By: #### H EMDF, PT, BMP3M, PHOS3, MG3, CK3 #### [place] [address] [place] #### VD25H #### [facility] [address] [place] [address] Monocytes/100 WBC (Bld) 8.2 % Normal 2.0-10.0 [facility] Comment on above: Performed By: #### H EMDF, PT, BMP3M, PHOS3, MG3, CK3 #### [address] #### VD25H #### [facility] [address] [place] [address] Platelet mean volume Entitic volume (Bld) 8.1 fL Normal 7.4-10.4 [facility] Comment on above: Performed By: #### H EMDF, PT, BMP3M, PHOS3, MG3, CK3 #### [address] #### VD25H #### [facility] [address] [place] [address] Platelets #/vol (Bld) 194 10*3/uL Normal 140-440 [facility] Comment on above: Performed By: #### H EMDF, PT, BMP3M, PHOS3, MG3, CK3 #### [address] #### VD25H #### [facility] [address] [place] [address] RBC #/vol (Bld) 4.26 10*6/uL Low 4.40-5.90 [facility] Comment on above: Performed By: #### H EMDF, PT, BMP3M, PHOS3, MG3, CK3 #### [address] #### VD25H #### [facility] [address] [place] [address] WBC #/vol (Bld) 13.7 10*3/uL High 3.6-10.7 [facility] Comment on above: Performed By: #### H EMDF, PT, BMP3M, PHOS3, MG3, CK3 #### [address] #### VD25H #### [place] [address] [facility] [place] [address] Arterial Blood Gaseson 07-12 CO2 molar conc 26.4 mmol/L Normal 23.0-27.0 [facility] Comment on above: Performed By: #### H EMDF, PT, BMP3M, PHOS3, MG3, CK3 #### [address] #### VD25H #### [address] [facility] [place] [address] HCO3 molar conc (Bld) 25.2 mmol/L High 21.0-25.0 [facility] Comment on above: Performed By: #### H EMDF, PT, BMP3M, PHOS3, MG3, CK3 #### [address] #### VD25H #### [place] [address] [facility] [address] Hemoglobin mass conc (Bld) 13.9 g/dL Normal ScreenOnly [facility] Comment on above: Performed By: #### H EMDF, PT, BMP3M, PHOS3, MG3, CK3 #### [address] #### VD25H #### [place] [address] [facility] [place] [address] Oxygen ppres (Bld) 83.9 mm[Hg] Normal 80.0-100.0 [facility] Comment on above: Performed By: #### H EMDF, PT, BMP3M, PHOS3, MG3, CK3 #### [place] [address] [place] #### VD25H #### [facility] [address] [place] [address] Oxygen saturation in Blood 96.3 % Normal 95.0-100.0 [facility] Comment on above: Performed By: #### H EMDF, PT, BMP3M, PHOS3, MG3, CK3 #### [place] [address] [place] #### VD25H #### [facility] [address] [place] [address] pCO2 38.2 mm[Hg] Normal 35.0-45.0 [facility] Comment on above: Performed By: #### H EMDF, PT, BMP3M, PHOS3, MG3, CK3 #### [place] [address] [address] [facility] #### VD25H #### [facility] [address] [place] [address] pH (Bld) 7.437 Normal 7.350-7.450 [facility] Comment on above: Performed By: #### H EMDF, PT, BMP3M, PHOS3, MG3, CK3 #### [address] #### VD25H #### [facility] [address] [place] [address] Std Base Excess 1.1 mmol/L Normal -3.0-3.0 [facility] Comment on above: Performed By: #### H EMDF, PT, BMP3M, PHOS3, MG3, CK3 #### [place] [address] [facility] #### VD25H #### [facility] [address] [place] [address] FIO2 50% Normal [facility] Comment on above: Performed By: #### H EMDF, PT, BMP3M, PHOS3, MG3, CK3 #### [address] #### VD25H #### [facility] [address] [place] [address] CO2 molar conc 27.2 mmol/L High 23.0-27.0 [facility] Comment on above: Performed By: #### H EMDF, PT, BMP3M, PHOS3, MG3, CK3 #### [address] [place] #### VD25H #### [facility] [address] [place] [address] HCO3 molar conc (Bld) 26.1 mmol/L High 21.0-25.0 [facility] Comment on above: Performed By: #### H EMDF, PT, BMP3M, PHOS3, MG3, CK3 #### [address] #### VD25H #### [facility] [address] [place] [address] Hemoglobin mass conc (Bld) 14.7 g/dL Normal ScreenOnly [facility] Comment on above: Performed By: #### H EMDF, PT, BMP3M, PHOS3, MG3, CK3 #### [address] #### VD25H #### [facility] [address] [place] [address] Oxygen ppres (Bld) 125.7 mm[Hg] High 80.0-100.0 [facility] Comment on above: Performed By: #### H EMDF, PT, BMP3M, PHOS3, MG3, CK3 #### [address] #### VD25H #### [facility] [address] [place] [address] Oxygen saturation in Blood 98.6 % Normal 95.0-100.0 [facility] Comment on above: Performed By: #### H EMDF, PT, BMP3M, PHOS3, MG3, CK3 #### [place] [address] [place] #### VD25H #### [facility] [address] [place] [address] pCO2 37.5 mm[Hg] Normal 35.0-45.0 [facility] Comment on above: Performed By: #### H EMDF, PT, BMP3M, PHOS3, MG3, CK3 #### [place] [address] [place] #### VD25H #### [facility] [address] [place] [address] pH (Bld) 7.460 High 7.350-7.450 [facility] Comment on above: Performed By: #### H EMDF, PT, BMP3M, PHOS3, MG3, CK3 #### [address] #### VD25H #### [facility] [address] [place] [address] Std Base Excess 2.4 mmol/L Normal -3.0-3.0 [facility] Comment on above: Performed By: #### H EMDF, PT, BMP3M, PHOS3, MG3, CK3 #### [address] #### VD25H #### [facility] [address] [place] [address] FIO2 62.5 Normal [facility] Comment on above: Performed By: #### H EMDF, PT, BMP3M, PHOS3, MG3, CK3 #### [address] #### VD25H #### [facility] [address] [place] [address] Basic Metabolic Panelon 06-29 Anion gap molar conc 6 Normal [facility] Comment on above: Performed By: #### H EMDF, PT, BMP3M, PHOS3, MG3, CK3 #### [address] [place] #### VD25H #### [facility] [address] [place] [address] Calcium mass conc 8.0 mg/dL Low 8.4-10.4 [facility] Comment on above: Performed By: #### H EMDF, PT, BMP3M, PHOS3, MG3, CK3 #### [place] [address] [place] #### VD25H #### [facility] [address] [place] [address] CO2 molar conc 28 mmol/L Normal 22-30 [facility] Comment on above: Performed By: #### H EMDF, PT, BMP3M, PHOS3, MG3, CK3 #### [address] #### VD25H #### [facility] [address] [place] [address] Creatinine mass conc 0.62 mg/dL Normal 0.52-1.25 [facility] Comment on above: Performed By: #### H EMDF, PT, BMP3M, PHOS3, MG3, CK3 #### [address] #### VD25H #### [facility] [address] [place] [address] GFR/1.73 sq M predicted among blacks MDRD vol rate/area (S/P/Bld) mL/min/{1.73_m2} Normal >60 [facility] Comment on above: Performed By: #### H EMDF, PT, BMP3M, PHOS3, MG3, CK3 #### [address] [place] #### VD25H #### [facility] [address] [place] [address] GFR/1.73 sq M predicted among non-blacks MDRD vol rate/area (S/P/Bld) mL/min/{1.73_m2} Normal >60 [facility] Comment on above: Result Comment: Sour ce- MDRD equation with creatinine calibration to IDMS(NKDEP) eGFR not recommended for drug dose adjustment Performed By: #### H EMDF, PT, BMP3M, PHOS3, MG3, CK3 #### [facility] [address] [place] #### VD25H #### [facility] [address] [place] [address] Glucose mass conc 125 mg/dL High 70-100 [facility] Comment on above: Performed By: #### H EMDF, PT, BMP3M, PHOS3, MG3, CK3 #### [address] [place] [address] [place] #### VD25H #### [facility] [address] [place] [address] Urea nitrogen mass conc 12 mg/dL Normal 7-20 [facility] Comment on above: Performed By: #### H EMDF, PT, BMP3M, PHOS3, MG3, CK3 #### [address] [place] [address] [place] #### VD25H #### [facility] [address] [place] [address] Chloride molar conc 104 mmol/L Normal 98-107 [facility] Comment on above: Performed By: #### H EMDF, PT, BMP3M, PHOS3, MG3, CK3 #### [place] [address] [place] #### VD25H #### [facility] [address] [place] [address] Potassium molar conc 3.6 mmol/L Normal 3.5-5.1 [facility] Comment on above: Performed By: #### H EMDF, PT, BMP3M, PHOS3, MG3, CK3 #### [place] [address] [place] #### VD25H #### [facility] [address] [place] [address] Sodium molar conc 138 mmol/L Normal 135-145 [facility] Comment on above: Performed By: #### H EMDF, PT, BMP3M, PHOS3, MG3, CK3 #### [facility] [address] [facility] [place] [address] #### VD25H #### [facility] [address] [place] [address] CR Chest Portableon 07-13-19 19 CR Chest Portable Patient Name: KATHYA HOOPER Diagnostic Radiology Exam Date/Time 07/12/2018 10:18:11 EDT Exam CR Chest Portable Ordering Physician MARIA EUGENIA PEREZ Accession Number [id number] CPT4 Codes 25745 () Reason For Exam ETT Placement Report [...] Transcribed Date and Time: 07/12/2018 1:21 Normal [facility] CR Chest Portable Patient Name: KATHYA HOOPER Diagnostic Radiology Exam Date/Time 07/12/2018 06:19:03 EDT Exam CR Chest Portable Ordering Physician MD NATE, NICOLE HOLLEY Accession Number [id number] CPT4 Codes 90942 () Reason For Exam dyspnea Report PORTABLE [...] Transcribed Date and Time: 07/12/2018 8:01 Normal [facility] Hemogram w/ Autodiffon 07-12 Abs Baso Cnt 0.0 10*3/uL Normal 0.0-0.2 [facility] Comment on above: Performed By: #### H EMDF, PT, BMP3M, PHOS3, MG3, CK3 #### [facility] [address] [place] [address] #### VD25H #### [facility] [address] [place] [address] Abs Neutrophile Cnt 10.2 10*3/uL High 1.8-7.0 [facility] Comment on above: Performed By: #### H EMDF, PT, BMP3M, PHOS3, MG3, CK3 #### [facility] [address] [place] #### VD25H #### [facility] [address] [place] [address] Basophils/100 WBC (Bld) 0.4 % Normal 0.0-2.0 [facility] Comment on above: Performed By: #### H EMDF, PT, BMP3M, PHOS3, MG3, CK3 #### [address] #### VD25H #### [facility] [address] [place] [address] Eosinophils #/vol (Bld) 0.1 10*3/uL Normal 0.0-0.5 [facility] Comment on above: Performed By: #### H EMDF, PT, BMP3M, PHOS3, MG3, CK3 #### [address] #### VD25H #### [facility] [address] [place] [address] Eosinophils/100 WBC (Bld) 0.6 % Low 1.0-6.0 [facility] Comment on above: Performed By: #### H EMDF, PT, BMP3M, PHOS3, MG3, CK3 #### [address] #### [id number] #### [facility] [address] [place] [address] Erythrocyte distribution width Ratio (RBC) 13.5 % Normal 11.5-14.5 [facility] Comment on above: Performed By: #### H EMDF, PT, BMP3M, PHOS3, MG3, CK3 #### [address] #### [id number] #### [facility] [address] [place] [address] Granulocytes/100 WBC (Bld) 84.7 % High 40.0-80.0 [facility] Comment on above: Performed By: #### H EMDF, PT, BMP3M, PHOS3, MG3, CK3 #### [facility] [address] [place], [place] #### VD25H #### [facility] [address] [place] [address] Hematocrit Volume Fraction (Bld) 39.7 % Low 40.0-52.0 [facility] Comment on above: Performed By: #### H EMDF, PT, BMP3M, PHOS3, MG3, CK3 #### [place] [address] [place], [place] #### VD25H #### [facility] [address] [place] [address] Hemoglobin mass conc (Bld) 13.5 g/dL Normal 13.0-18.0 [facility] Comment on above: Performed By: #### H EMDF, PT, BMP3M, PHOS3, MG3, CK3 #### [address] #### VD25H #### [facility] [address] [place] [address] Lymphocytes #/vol (Bld) 0.9 10*3/uL Low 1.0-4.3 [facility] Comment on above: Performed By: #### H EMDF, PT, BMP3M, PHOS3, MG3, CK3 #### [address] [place], [place] #### VD25H #### [facility] [address] [place] [address] Lymphocytes/100 WBC (Bld) 7.6 % Low 20.0-40.0 [facility] Comment on above: Performed By: #### H EMDF, PT, BMP3M, PHOS3, MG3, CK3 #### [address] #### VD25H #### [facility] [address] [place] [address] MCH Entitic mass (RBC) 29.6 pg Normal 26.0-34.0 [facility] Comment on above: Performed By: #### H EMDF, PT, BMP3M, PHOS3, MG3, CK3 #### [address] [place], [place] #### VD25H #### [facility] [address] [place] [address] MCHC mass conc (RBC) 34.1 % Normal 32.0-36.0 [facility] Comment on above: Performed By: #### H EMDF, PT, BMP3M, PHOS3, MG3, CK3 #### [address] #### VD25H #### [place] [address] [place] [address] MCV Entitic volume (RBC) 87.0 fL Normal 80.0-98.0 [facility] Comment on above: Performed By: #### H EMDF, PT, BMP3M, PHOS3, MG3, CK3 #### [address] #### VD25H #### [place] [address] [place] [address] Monocytes #/vol (Bld) 0.8 10*3/uL Normal 0.0-0.8 [facility] Comment on above: Performed By: #### H EMDF, PT, BMP3M, PHOS3, MG3, CK3 #### [address] #### VD25H #### [place] [address] [place] [address] Monocytes/100 WBC (Bld) 6.7 % Normal 2.0-10.0 [facility] Comment on above: Performed By: #### H EMDF, PT, BMP3M, PHOS3, MG3, CK3 #### [address] #### VD25H #### [facility] [address] [place] [address] Platelet mean volume Entitic volume (Bld) 8.4 fL Normal 7.4-10.4 [facility] Comment on above: Performed By: #### H EMDF, PT, BMP3M, PHOS3, MG3, CK3 #### [address] [place] [address] [place], [place] #### VD25H #### [facility] [address] [place] [address] Platelets #/vol (Bld) 185 10*3/uL Normal 140-440 [facility] Comment on above: Performed By: #### H EMDF, PT, BMP3M, PHOS3, MG3, CK3 #### [address] #### VD25H #### [place] [address] [place] [address] RBC #/vol (Bld) 4.57 10*6/uL Normal 4.40-5.90 [facility] Comment on above: Performed By: #### H EMDF, PT, BMP3M, PHOS3, MG3, CK3 #### [address] #### VD25H #### [place] [address] [place] [address] WBC #/vol (Bld) 12.1 10*3/uL High 3.6-10.7 [facility] Comment on above: Performed By: #### H EMDF, PT, BMP3M, PHOS3, MG3, CK3 #### [address] #### VD25H #### [place] [address] [place] [address] VL Venous Duplex US Lower Ex t Bilateralon 07-12-2018 VL Venous Duplex US Lower Ext Bilateral Patient Name: KATHYA HOOPER Ultrasound Exam Date/Time 07/12/2018 17:20:46 EDT Exam VL Venous Duplex US Lower Ext Bilateral Ordering Physician MD AVELAR ADAM Accession Number [id number] CPT4 Codes 08343 () Reason For Exam leg swelling Report [facility] --- Lower Extremity Venous Duplex Report Patient Name: Kathya Hooper : 1955 Study Date: 07/12/2018 W (63yrs) Age: 63 Account: [id number] Gender: M Loc: T209 BP: Ordering: Joshua Avelar Technologist: Ordering Physician: Joshua Avelar Human Service Worker: Elizabeth Sanford RVT Interpreting Physician: Krysta Arora --- Location: [facility] --- INDICATIONS: Edema. bilateral calves. --- CONCLUSIONS [...] performed. The images were obtained using a [employer] E9 vascular ultrasound machine. --- VENOUS FLOW [...] ---------+-------+--- --+ Electronically signed by: Krysta Arora [id number] Final Dictated: 07/13/2018 8:45 am Dictating Physician: KRYSTA ARORA Signed Date and Time: 07/13/2018 8:45 am Signed by: KRYSTA ARORA Normal [facility] Basic Metabolic Panelon 06-29 Calcium mass conc 7.8 mg/dL Low 8.4-10.4 [facility] Comment on above: Performed By: #### H EMDF, PT, BMP3M, PHOS3, MG3, CK3 #### [facility] [address] [place] [address] #### VD25H #### [employer] [facility] [address] [place] [address] Anion gap molar conc 4 Normal [facility] Comment on above: Performed By: #### H EMDF, PT, BMP3M, PHOS3, MG3, CK3 #### [facility] [address] [place] [address] #### VD25H #### [facility] [address] [place] [address] CO2 molar conc 26 mmol/L Normal 22-30 [facility] Comment on above: Performed By: #### H EMDF, PT, BMP3M, PHOS3, MG3, CK3 #### [facility] [address] [place] [address] #### VD25H #### [facility] [address] [place] [address] Glucose mass conc 118 mg/dL High 70-100 [facility] Comment on above: Performed By: #### H EMDF, PT, BMP3M, PHOS3, MG3, CK3 #### [address] #### VD25H #### [facility] [address] [place] [address] Urea nitrogen mass conc 19 mg/dL Normal 7-20 [facility] Comment on above: Performed By: #### H EMDF, PT, BMP3M, PHOS3, MG3, CK3 #### [address] #### VD25H #### [facility] [address] [place] [address] Creatinine mass conc 0.74 mg/dL Normal 0.52-1.25 [facility] Comment on above: Performed By: #### H EMDF, PT, BMP3M, PHOS3, MG3, CK3 #### [address] [place] [address] [place], [place] #### VD25H #### [facility] [address] [place] [address] GFR/1.73 sq M predicted among blacks MDRD vol rate/area (S/P/Bld) mL/min/{1.73_m2} Normal >60 [facility] Comment on above: Performed By: #### H EMDF, PT, BMP3M, PHOS3, MG3, CK3 #### [address] #### VD25H #### [facility] [address] [place] [address] GFR/1.73 sq M predicted among non-blacks MDRD vol rate/area (S/P/Bld) mL/min/{1.73_m2} Normal >60 [facility] Comment on above: Result Comment: Sour ce- MDRD equation with creatinine calibration to IDMS(NKDEP) eGFR not recommended for drug dose adjustment Performed By: #### H EMDF, PT, BMP3M, PHOS3, MG3, CK3 #### [address] [address] #### VD25H #### [facility] [address] [place] [address] Chloride molar conc 112 mmol/L High 98-107 [facility] Comment on above: Performed By: #### H EMDF, PT, BMP3M, PHOS3, MG3, CK3 #### [address] #### VD25H #### [facility] [address] [place] [address] Potassium molar conc 3.8 mmol/L Normal 3.5-5.1 [facility] Comment on above: Performed By: #### H EMDF, PT, BMP3M, PHOS3, MG3, CK3 #### [address] #### VD25H #### [facility] [address] [place] [address] Sodium molar conc 141 mmol/L Normal 135-145 [facility] Comment on above: Performed By: #### H EMDF, PT, BMP3M, PHOS3, MG3, CK3 #### [address] #### VD25H #### [facility] [address] [place] [address] CR Chest 1 View Frontalon CR Chest 1 View Frontal Patient Name: KATHYA FELDER Diagnostic Radiology Exam Date/Time 07/11/2018 06:36:48 EDT Exam CR Chest 1 View Frontal Ordering Physician MD MOISÉS, JOSHUA Accession Number [id number] CPT4 Codes 75601 () Reason For Exam dyspnea Report EXAM [...] Transcribed Date and Time: 07/11/2018 7:05 Normal [facility] Hemogram w/ Autodiffon 07-11 Abs Baso Cnt 0.0 10*3/uL Normal 0.0-0.2 [facility] Comment on above: Performed By: #### H EMDF, PT, BMP3M, PHOS3, MG3, CK3 #### [facility] [address] [place] [address] #### VD25H #### [facility] [address] [place] [address] Abs Neutrophile Cnt 8.8 10*3/uL High 1.8-7.0 [facility] Comment on above: Performed By: #### H EMDF, PT, BMP3M, PHOS3, MG3, CK3 #### [facility] [address] [place], [place] #### VD25H #### [facility] [address] [place] [address] Basophils/100 WBC (Bld) 0.4 % Normal 0.0-2.0 [facility] Comment on above: Performed By: #### H EMDF, PT, BMP3M, PHOS3, MG3, CK3 #### [facility] [address] [place] #### VD25H #### [facility] [address] [place] [address] Eosinophils #/vol (Bld) 0.0 10*3/uL Normal 0.0-0.5 [facility] Comment on above: Performed By: #### H EMDF, PT, BMP3M, PHOS3, MG3, CK3 #### [address] #### VD25H #### [facility] [address] [place] [address] Eosinophils/100 WBC (Bld) 0.4 % Low 1.0-6.0 [facility] Comment on above: Performed By: #### H EMDF, PT, BMP3M, PHOS3, MG3, CK3 #### [address] [place], [place] #### VD25H #### [facility] [address] [place] [address] Erythrocyte distribution width Ratio (RBC) 13.7 % Normal 11.5-14.5 [facility] Comment on above: Performed By: #### H EMDF, PT, BMP3M, PHOS3, MG3, CK3 #### [address] #### VD25H #### [facility] [address] [place] [address] Granulocytes/100 WBC (Bld) 80.6 % High 40.0-80.0 [facility] Comment on above: Performed By: #### H EMDF, PT, BMP3M, PHOS3, MG3, CK3 #### [address] [place] #### VD25H #### [facility] [address] [place] [address] Hematocrit Volume Fraction (Bld) 32.8 % Low 40.0-52.0 [facility] Comment on above: Performed By: #### H EMDF, PT, BMP3M, PHOS3, MG3, CK3 #### [address] [place] #### VD25H #### [facility] [address] [place] [address] Hemoglobin mass conc (Bld) 11.4 g/dL Low 13.0-18.0 [facility] Comment on above: Performed By: #### H EMDF, PT, BMP3M, PHOS3, MG3, CK3 #### [address] #### VD25H #### [place] [address] [place] [address] Lymphocytes #/vol (Bld) 1.3 10*3/uL Normal 1.0-4.3 [facility] Comment on above: Performed By: #### H EMDF, PT, BMP3M, PHOS3, MG3, CK3 #### [address] #### VD25H #### [facility] [address] [place] [address] Lymphocytes/100 WBC (Bld) 11.5 % Low 20.0-40.0 [facility] Comment on above: Performed By: #### H EMDF, PT, BMP3M, PHOS3, MG3, CK3 #### [address] #### VD25H #### [facility] [address] [place] [address] MCH Entitic mass (RBC) 30.2 pg Normal 26.0-34.0 [facility] Comment on above: Performed By: #### H EMDF, PT, BMP3M, PHOS3, MG3, CK3 #### [address] #### VD25H #### [facility] [address] [place] [address] MCHC mass conc (RBC) 34.7 % Normal 32.0-36.0 [facility] Comment on above: Performed By: #### H EMDF, PT, BMP3M, PHOS3, MG3, CK3 #### [address] #### VD25H #### [facility] [address] [place] [address] MCV Entitic volume (RBC) 86.9 fL Normal 80.0-98.0 [facility] Comment on above: Performed By: #### H EMDF, PT, BMP3M, PHOS3, MG3, CK3 #### [address] #### VD25H #### [facility] [address] [place] [address] Monocytes #/vol (Bld) 0.8 10*3/uL Normal 0.0-0.8 [facility] Comment on above: Performed By: #### H EMDF, PT, BMP3M, PHOS3, MG3, CK3 #### [address] #### VD25H #### [facility] [address] [place] [address] Monocytes/100 WBC (Bld) 7.1 % Normal 2.0-10.0 [facility] Comment on above: Performed By: #### H EMDF, PT, BMP3M, PHOS3, MG3, CK3 #### [address] #### VD25H #### [facility] [address] [place] [address] Platelet mean volume Entitic volume (Bld) 8.8 fL Normal 7.4-10.4 [facility] Comment on above: Performed By: #### H EMDF, PT, BMP3M, PHOS3, MG3, CK3 #### [address] [address] [place], [place] #### VD25H #### [facility] [address] [place] [address] Platelets #/vol (Bld) 158 10*3/uL Normal 140-440 [facility] Comment on above: Performed By: #### H EMDF, PT, BMP3M, PHOS3, MG3, CK3 #### [address] #### VD25H #### [facility] [address] [place] [address] RBC #/vol (Bld) 3.78 10*6/uL Low 4.40-5.90 [facility] Comment on above: Performed By: #### H EMDF, PT, BMP3M, PHOS3, MG3, CK3 #### [address] #### VD25H #### [facility] [address] [place] [address] WBC #/vol (Bld) 10.9 10*3/uL High 3.6-10.7 [facility] Comment on above: Performed By: #### H EMDF, PT, BMP3M, PHOS3, MG3, CK3 #### [address] [address] [address] [place] #### VD25H #### [facility] [address] [place] [address] Magnesiumon 07-11-2018 Magnesium mass conc 2.3 mg/dL Normal 1.6-2.3 [facility] Comment on above: Performed By: #### H EMDF, PT, BMP3M, PHOS3, MG3, CK3 #### [address] #### VD25H #### [facility] [address] [place] [address] Phosphoruson 07-11-2018 Phosphate mass conc 2.8 mg/dL Normal 2.5-4.5 [facility] Comment on above: Performed By: #### H EMDF, PT, BMP3M, PHOS3, MG3, CK3 #### [facility] [address] [place] #### VD25H #### [facility] [address] [place] [address] Basic Metabolic Panelon 06-29 Calcium mass conc 8.9 mg/dL Normal 8.4-10.4 [facility] Comment on above: Performed By: #### H EMDF, PT, BMP3M, PHOS3, MG3, CK3 #### [address] [address] [place], [place] #### VD25H #### [facility] [address] [place] [address] Glucose mass conc 133 mg/dL High 70-100 [facility] Comment on above: Performed By: #### H EMDF, PT, BMP3M, PHOS3, MG3, CK3 #### [address] [address] [place], [place] #### VD25H #### [facility] [address] [place] [address] Anion gap molar conc 4 Normal [facility] Comment on above: Performed By: #### H EMDF, PT, BMP3M, PHOS3, MG3, CK3 #### [facility] [address] [place] #### VD25H #### [facility] [address] [place] [address] CO2 molar conc 27 mmol/L Normal 22-30 [facility] Comment on above: Performed By: #### H EMDF, PT, BMP3M, PHOS3, MG3, CK3 #### [address] [place] [address] [place], [place] #### VD25H #### [facility] [address] [place] [address] Creatinine mass conc 0.69 mg/dL Normal 0.52-1.25 [facility] Comment on above: Performed By: #### H EMDF, PT, BMP3M, PHOS3, MG3, CK3 #### [facility] [address] [place], [place] #### VD25H #### [facility] [address] [place] [address] GFR/1.73 sq M predicted among blacks MDRD vol rate/area (S/P/Bld) mL/min/{1.73_m2} Normal >60 [facility] Comment on above: Performed By: #### H EMDF, PT, BMP3M, PHOS3, MG3, CK3 #### [address] #### VD25H #### [facility] [address] [place] [address] GFR/1.73 sq M predicted among non-blacks MDRD vol rate/area (S/P/Bld) mL/min/{1.73_m2} Normal >60 [facility] Comment on above: Result Comment: Sour ce- MDRD equation with creatinine calibration to IDMS(NKDEP) eGFR not recommended for drug dose adjustment Performed By: #### H EMDF, PT, BMP3M, PHOS3, MG3, CK3 #### [address] #### VD25H #### [place] [address] [place] [address] Urea nitrogen mass conc 16 mg/dL Normal 7-20 [facility] Comment on above: Performed By: #### H EMDF, PT, BMP3M, PHOS3, MG3, CK3 #### [address] #### VD25H #### [facility] [address] [facility] [place] [address] Potassium molar conc 4.1 mmol/L Normal 3.5-5.1 [facility] Comment on above: Performed By: #### H EMDF, PT, BMP3M, PHOS3, MG3, CK3 #### [address] [address] [place] #### VD25H #### [facility] [address] [place] [address] Sodium molar conc 142 mmol/L Normal 135-[address] [facility] Comment on above: Performed By: #### H EMDF, PT, BMP3M, PHOS3, MG3, CK3 #### [address] [place] #### VD25H #### [facility] [address] [place] [address] Chloride molar conc 110 mmol/L High 98-107 [facility] Comment on above: Performed By: #### H EMDF, PT, BMP3M, PHOS3, MG3, CK3 #### [address] [place] [address] [place], [place] #### VD25H #### [facility] [address] [place] [address] CKon 07-10-2018 CK enzyme act/vol 1291 U/L High 30-[address] [facility] Comment on above: Performed By: #### H EMDF, PT, BMP3M, PHOS3, MG3, CK3 #### [address] [place] [address] [place] #### VD25H #### [facility] [address] [place] [address] CK enzyme act/vol 1382 U/L High 30-[address] [facility] Comment on above: Performed By: #### H EMDF, PT, BMP3M, PHOS3, MG3, CK3 #### [address] [place] #### VD25H #### [facility] [address] [place] [address] CR Chest 1 View Frontalon CR Chest 1 View Frontal Patient Name: KATHYA FELDER Diagnostic Radiology Exam Date/Time 07/10/2018 06:38:06 EDT Exam CR Chest 1 View Frontal Ordering Physician MD NATE, [facility] Accession Number [id number] CPT4 Codes 55169 () Reason For Exam dyspnea Report EXAMINATION: [...] Transcribed Date and Time: 07/10/2018 8:57 Normal [facility] Hemogram w/ Autodiffon 07-10 Abs Baso Cnt 0.0 10*3/uL Normal 0.0-0.2 [facility] Comment on above: Performed By: #### H EMDF, PT, BMP3M, PHOS3, MG3, CK3 #### [facility] [address] [place] [address] #### VD25H #### [facility] [address] [place] [address] Abs Neutrophile Cnt 12.2 10*3/uL High 1.8-7.0 [facility] Comment on above: Performed By: #### H EMDF, PT, BMP3M, PHOS3, MG3, CK3 #### [facility] [address] [place] #### VD25H #### [facility] [address] [place] [address] Basophils/100 WBC (Bld) 0.3 % Normal 0.0-2.0 [facility] Comment on above: Performed By: #### H EMDF, PT, BMP3M, PHOS3, MG3, CK3 #### [facility] [address] [place] #### VD25H #### [facility] [address] [place] [address] Eosinophils #/vol (Bld) 0.0 10*3/uL Normal 0.0-0.5 [facility] Comment on above: Performed By: #### H EMDF, PT, BMP3M, PHOS3, MG3, CK3 #### [address] #### VD25H #### [facility] [address] [place] [address] Eosinophils/100 WBC (Bld) 0.0 % Low 1.0-6.0 [facility] Comment on above: Performed By: #### H EMDF, PT, BMP3M, PHOS3, MG3, CK3 #### [address] #### VD25H #### [facility] [address] [place] [address] Erythrocyte distribution width Ratio (RBC) 13.9 % Normal 11.5-14.5 [facility] Comment on above: Performed By: #### H EMDF, PT, BMP3M, PHOS3, MG3, CK3 #### [address] #### VD25H #### [facility] [address] [place] [address] Granulocytes/100 WBC (Bld) 89.5 % High 40.0-80.0 [facility] Comment on above: Performed By: #### H EMDF, PT, BMP3M, PHOS3, MG3, CK3 #### [address] [place] #### VD25H #### [facility] [address] [place] [address] Hematocrit Volume Fraction (Bld) 36.0 % Low 40.0-52.0 [facility] Comment on above: Performed By: #### H EMDF, PT, BMP3M, PHOS3, MG3, CK3 #### [address] [place] [address] [address] [place] #### VD25H #### [facility] [address] [place] [address] Hemoglobin mass conc (Bld) 12.3 g/dL Low 13.0-18.0 [facility] Comment on above: Performed By: #### H EMDF, PT, BMP3M, PHOS3, MG3, CK3 #### [address] #### VD25H #### [facility] [address] [place] [address] Lymphocytes #/vol (Bld) 0.6 10*3/uL Low 1.0-4.3 [facility] Comment on above: Performed By: #### H EMDF, PT, BMP3M, PHOS3, MG3, CK3 #### [address] #### VD25H #### [facility] [address] [place] [address] Lymphocytes/100 WBC (Bld) 4.3 % Low 20.0-40.0 [facility] Comment on above: Performed By: #### H EMDF, PT, BMP3M, PHOS3, MG3, CK3 #### [address] #### VD25H #### [facility] [address] [place] [address] MCH Entitic mass (RBC) 29.8 pg Normal 26.0-34.0 [facility] Comment on above: Performed By: #### H EMDF, PT, BMP3M, PHOS3, MG3, CK3 #### [address] #### VD25H #### [facility] [address] [place] [address] MCHC mass conc (RBC) 34.2 % Normal 32.0-36.0 [facility] Comment on above: Performed By: #### H EMDF, PT, BMP3M, PHOS3, MG3, CK3 #### [address] #### VD25H #### [facility] [address] [place] [address] MCV Entitic volume (RBC) 87.1 fL Normal 80.0-98.0 [facility] Comment on above: Performed By: #### H EMDF, PT, BMP3M, PHOS3, MG3, CK3 #### [address] #### VD25H #### [facility] [address] [address] Monocytes #/vol (Bld) 0.8 10*3/uL Normal 0.0-0.8 [facility] Comment on above: Performed By: #### H EMDF, PT, BMP3M, PHOS3, MG3, CK3 #### [address] #### VD25H #### [facility] [address] [place] [address] Monocytes/100 WBC (Bld) 5.9 % Normal 2.0-10.0 [facility] Comment on above: Performed By: #### H EMDF, PT, BMP3M, PHOS3, MG3, CK3 #### [address] #### VD25H #### [facility] [address] [place] [address] Platelet mean volume Entitic volume (Bld) 8.4 fL Normal 7.4-10.4 [facility] Comment on above: Performed By: #### H EMDF, PT, BMP3M, PHOS3, MG3, CK3 #### [address] [address] [address] [place] #### VD25H #### [facility] [address] [place] [address] Platelets #/vol (Bld) 155 10*3/uL Normal 140-440 [facility] Comment on above: Performed By: #### H EMDF, PT, BMP3M, PHOS3, MG3, CK3 #### [address] #### VD25H #### [facility] [address] [place] [address] RBC #/vol (Bld) 4.13 10*6/uL Low 4.40-5.90 [facility] Comment on above: Performed By: #### H EMDF, PT, BMP3M, PHOS3, MG3, CK3 #### [address] #### VD25H #### [facility] [address] [place] [address] WBC #/vol (Bld) 13.6 10*3/uL High 3.6-10.7 [facility] Comment on above: Performed By: #### H EMDF, PT, BMP3M, PHOS3, MG3, CK3 #### [address] [place] [address] [address] [place] #### VD25H #### [facility] [address] [place] [address] Magnesiumon 07-10-2018 Magnesium mass conc 2.3 mg/dL Normal 1.6-2.3 [facility] Comment on above: Performed By: #### H EMDF, PT, BMP3M, PHOS3, MG3, CK3 #### [address] #### [id number] #### [facility] [address] [place] [address] Phosphoruson 07-10-2018 Phosphate mass conc 2.7 mg/dL Normal 2.5-4.5 [facility] Comment on above: Performed By: #### H EMDF, PT, BMP3M, PHOS3, MG3, CK3 #### [place] [address] [address] [place], [place] #### [id number] #### [facility] [address] [place] [address] Add on test from HISon 07-09 Add on test from [facility] Accepted Normal [facility] Comment on above: Result Comment: Spec imen available & acceptable for analysis. Performed By: #### A DDON #### [place] [address] [place], [place] Arterial Blood Gaseson 07-09 CO2 molar conc 24.5 mmol/L Normal 23.0-27.0 [facility] Comment on above: Performed By: #### H EMDF, PT, BMP3M, PHOS3, MG3, CK3 #### [address] #### VD25H #### [facility] [address] [place] [address] HCO3 molar conc (Bld) 23.2 mmol/L Normal 21.0-25.0 [facility] Comment on above: Performed By: #### H EMDF, PT, BMP3M, PHOS3, MG3, CK3 #### [address] [place], [place] #### VD25H #### [facility] [address] [place] [address] Hemoglobin mass conc (Bld) 15.7 g/dL Normal ScreenOnly [facility] Comment on above: Performed By: #### H EMDF, PT, BMP3M, PHOS3, MG3, CK3 #### [address] #### VD25H #### [facility] [address] [place] [address] Oxygen ppres (Bld) 397.4 mm[Hg] High 80.0-100.0 [facility] Comment on above: Performed By: #### H EMDF, PT, BMP3M, PHOS3, MG3, CK3 #### [facility] [address] [place] #### VD25H #### [facility] [address] [place] [address] Oxygen saturation in Blood 99.2 % Normal 95.0-100.0 [facility] Comment on above: Performed By: #### H EMDF, PT, BMP3M, PHOS3, MG3, CK3 #### [address] #### VD25H #### [facility] [address] [place] [address] pCO2 42.3 mm[Hg] Normal 35.0-45.0 [facility] Comment on above: Performed By: #### H EMDF, PT, BMP3M, PHOS3, MG3, CK3 #### [address] #### VD25H #### [facility] [address] [place] [address] pH (Bld) 7.357 Normal 7.350-7.450 [facility] Comment on above: Performed By: #### H EMDF, PT, BMP3M, PHOS3, MG3, CK3 #### [address] [place] #### VD25H #### [facility] [address] [place] [address] Std Base Excess -2.3 mmol/L Normal -3.0-3.0 [facility] Comment on above: Performed By: #### H EMDF, PT, BMP3M, PHOS3, MG3, CK3 #### [address] #### VD25H #### [facility] [address] [place] [address] FIO2 100% Normal [facility] Comment on above: Performed By: #### H EMDF, PT, BMP3M, PHOS3, MG3, CK3 #### [address] [place] #### VD25H #### [facility] [address] [place] [address] Basic Metabolic Panelon 06-29 Calcium mass conc 8.6 mg/dL Normal 8.4-10.4 [facility] Comment on above: Performed By: #### H EMDF, PT, BMP3M, PHOS3, MG3, CK3 #### [address] [address] [place], [place] #### VD25H #### [facility] [address] [place] [address] Glucose mass conc 150 mg/dL High 70-100 [facility] Comment on above: Performed By: #### H EMDF, PT, BMP3M, PHOS3, MG3, CK3 #### [address] [address] [place], [place] #### VD25H #### [facility] [address] [place] [address] Anion gap molar conc 7 Normal [facility] Comment on above: Performed By: #### H EMDF, PT, BMP3M, PHOS3, MG3, CK3 #### [address] [address] [place], [place] #### VD25H #### [facility] [address] [place] [address] CO2 molar conc 26 mmol/L Normal 22-30 [facility] Comment on above: Performed By: #### H EMDF, PT, BMP3M, PHOS3, MG3, CK3 #### [address], [place] #### VD25H #### [facility] [address] [place] [address] Creatinine mass conc 0.80 mg/dL Normal 0.52-1.25 [facility] Comment on above: Performed By: #### H EMDF, PT, BMP3M, PHOS3, MG3, CK3 #### [address] [address] #### VD25H #### [facility] [address] [place] [address] GFR/1.73 sq M predicted among blacks MDRD vol rate/area (S/P/Bld) mL/min/{1.73_m2} Normal >60 [facility] Comment on above: Performed By: #### H EMDF, PT, BMP3M, PHOS3, MG3, CK3 #### [address] #### VD25H #### [place] [address] [place] [address] GFR/1.73 sq M predicted among non-blacks MDRD vol rate/area (S/P/Bld) mL/min/{1.73_m2} Normal >60 [facility] Comment on above: Result Comment: Sour ce- MDRD equation with creatinine calibration to IDMS(NKDEP) eGFR not recommended for drug dose adjustment Performed By: #### H EMDF, PT, BMP3M, PHOS3, MG3, CK3 #### [address] #### VD25H #### [facility] [address] [place] [address] Urea nitrogen mass conc 16 mg/dL Normal 7-20 [facility] Comment on above: Performed By: #### H EMDF, PT, BMP3M, PHOS3, MG3, CK3 #### [address] #### VD25H #### [facility] [address] [place] [address] Chloride molar conc 110 mmol/L High 98-107 [facility] Comment on above: Performed By: #### H EMDF, PT, BMP3M, PHOS3, MG3, CK3 #### [address], [place] #### VD25H #### [facility] [address] [place] [address] Potassium molar conc 4.7 mmol/L Normal 3.5-5.1 [facility] Comment on above: Performed By: #### H EMDF, PT, BMP3M, PHOS3, MG3, CK3 #### [address] [place] #### VD25H #### [facility] [address] [place] [address] Sodium molar conc 143 mmol/L Normal 135-[address] [facility] Comment on above: Performed By: #### H EMDF, PT, BMP3M, PHOS3, MG3, CK3 #### [address] [place] #### VD25H #### [place] [address] [place] [address] CKon 07-09-2018 CK enzyme act/vol 1451 U/L High 30-[address] [facility] Comment on above: Performed By: #### H EMDF, PT, BMP3M, PHOS3, MG3, CK3 #### [address] [place] #### VD25H #### [facility] [address] [place] [address] CK enzyme act/vol 3832 U/L High 30-[address] [facility] Comment on above: Performed By: #### H EMDF, PT, BMP3M, PHOS3, MG3, CK3 #### [address] [place] #### VD25H #### [address] [place] [address] [place] [address] CR Chest 1 View Frontalon CR Chest 1 View Frontal Patient Name: KATHYA FELDER Diagnostic Radiology Exam Date/Time 07/09/2018 06:21:56 EDT Exam CR Chest 1 View Frontal Ordering Physician MD NATE, [facility] Accession Number [id number] CPT4 Codes 75586 () Reason For Exam dyspnea Report CHEST [...] Transcribed Date and Time: 07/09/2018 6:39 Normal [facility] CR Chest Portableon 07-10-19 19 CR Chest Portable Patient Name: KATHYA HOOPER Diagnostic Radiology Exam Date/Time 07/09/2018 11:34:09 EDT Exam CR Chest Portable Ordering Physician [id number] GUNN Accession Number [id number] CPT4 Codes 37487 () Reason For Exam Central line placement [...] JOHN Transcribed Date and Time: 07/09/2018 1:01 [facility] CR Chest Portable Patient Name: KATHYA HOOPER Diagnostic Radiology Exam Date/Time 07/09/2018 03:05:20 EDT Exam CR Chest Portable Ordering Physician MD NATE, NICOLE HOLLEY Accession Number [id number] CPT4 Codes 03107 () Reason For Exam intubation Report CHEST PORTABLE: Indication: Inpatient; intubation Views: Portable frontal Comparison: 07/08/2018 at 22:16 Time: 07/09/2018 at 2:46 FINDINGS: Interval intubation with endotracheal tube approximately 4.2 cm above the level of the alma. An enteric tube has been placed with distal tip below the hemidiaphragm but excluded from [id number]. Cardiac monitoring wires and leads are present. [...] R Transcribed Date and Time: 07/09/2018 3:10 [facility] CR Chest Portable Patient Name: KATHYA HOOPER Diagnostic Radiology Exam Date/Time 07/08/2018 22:31:57 EDT Exam CR Chest Portable Ordering Physician MD NATE, NICOLE HOLLEY Accession Number [id number] CPT4 Codes 59805 () Reason For Exam cough Report CHEST [...] Transcribed Date and Time: 07/08/2018 11:23 Normal [facility] CTA Head/Neck w/ + w/o contr birgit 07-09-2018 CTA Head/Neck w/ + w/o contrast Patient Name: KATHYA HOOPER CT Exam Date/Time 07/09/2018 04:42:10 EDT Exam CTA Head/Neck w/ + w/o contrast Ordering Physician MD OREILLY ALEKSANDAR Accession Number [id number] CPT4 Codes Q9967 (CT ISOVUE 370MG/[id number]), 75518 (), 28949 () Reason For Exam CERVICAL SPINE FRACTURE Report CLINICAL INFORMATION: C-spine fracture after trauma. Vascular injury suspected. CTA HEAD: After 75 ml Isovue IV contrast, 0.3 mm axial cuts were obtained through the brain. Coronal and sagittal reconstructions are reviewed. In addition, 3D images of the [place] of [place] were constructed by me and reviewed simultaneously on the separate [employer] Workstation. The examination is compared to a [...] at 0735 hrs. Report Dictated on Workstation: [employer] Final Dictated: 07/09/2018 9:50 am Dictating Physician: MD JERNIGAN JEFFREY Signed Date and Time: 07/09/2018 10:26 am Signed by: MD JERNIGAN JEFFREY Transcribed Date and Time: 07/09/2018 9:50 Normal [facility] Hemogram w/ Autodiffon 07-09 Abs Baso Cnt 0.1 10*3/uL Normal 0.0-0.2 [facility] Comment on above: Performed By: #### H EMDF, PT, BMP3M, PHOS3, MG3, CK3 #### [facility] [address] [place] [address] #### VD25H #### [facility] [address] [place] [address] Abs Neutrophile Cnt 13.3 10*3/uL High 1.8-7.0 [facility] Comment on above: Performed By: #### H EMDF, PT, BMP3M, PHOS3, MG3, CK3 #### [facility] [address] [place] [address] #### VD25H #### [facility] [address] [place] [address] Basophils/100 WBC (Bld) 0.3 % Normal 0.0-2.0 S [facility] Comment on above: Performed By: #### H EMDF, PT, BMP3M, PHOS3, MG3, CK3 #### [address] #### VD25H #### [facility] [address] [place] [address] Eosinophils #/vol (Bld) 0.0 10*3/uL Normal 0.0-0.5 [facility] Comment on above: Performed By: #### H EMDF, PT, BMP3M, PHOS3, MG3, CK3 #### [address] #### VD25H #### [place] [address] [place] [address] Eosinophils/100 WBC (Bld) 0.0 % Low 1.0-6.0 [facility] Comment on above: Performed By: #### H EMDF, PT, BMP3M, PHOS3, MG3, CK3 #### [address] #### VD25H #### [place] [address] [place] [address] Erythrocyte distribution width Ratio (RBC) 13.7 % Normal 11.5-14.5 [facility] Comment on above: Performed By: #### H EMDF, PT, BMP3M, PHOS3, MG3, CK3 #### [address] #### VD25H #### [facility] [address] [place] [address] Granulocytes/100 WBC (Bld) 86.5 % High 40.0-80.0 [facility] Comment on above: Performed By: #### H EMDF, PT, BMP3M, PHOS3, MG3, CK3 #### [address] #### VD25H #### [facility] [address] [place] [address] Hematocrit Volume Fraction (Bld) 45.1 % Normal 40.0-52.0 [facility] Comment on above: Performed By: #### H EMDF, PT, BMP3M, PHOS3, MG3, CK3 #### [address] #### VD25H #### [facility] [address] [place] [address] Hemoglobin mass conc (Bld) 15.6 g/dL Normal 13.0-18.0 [facility] Comment on above: Performed By: #### H EMDF, PT, BMP3M, PHOS3, MG3, CK3 #### [address] #### VD25H #### [facility] [address] [place] [address] Lymphocytes #/vol (Bld) 0.8 10*3/uL Low 1.0-4.3 [facility] Comment on above: Performed By: #### H EMDF, PT, BMP3M, PHOS3, MG3, CK3 #### [address] #### VD25H #### [facility] [address] [place] [address] Lymphocytes/100 WBC (Bld) 5.5 % Low 20.0-40.0 [facility] Comment on above: Performed By: #### H EMDF, PT, BMP3M, PHOS3, MG3, CK3 #### [address] #### VD25H #### [facility] [address] [place] [address] MCH Entitic mass (RBC) 29.9 pg Normal 26.0-34.0 [facility] Comment on above: Performed By: #### H EMDF, PT, BMP3M, PHOS3, MG3, CK3 #### [address] [place], [place] #### VD25H #### [facility] [address] [place] [address] MCHC mass conc (RBC) 34.5 % Normal 32.0-36.0 [facility] Comment on above: Performed By: #### H EMDF, PT, BMP3M, PHOS3, MG3, CK3 #### [address] [place] #### VD25H #### [facility] [address] [place] [address] MCV Entitic volume (RBC) 86.7 fL Normal 80.0-98.0 [facility] Comment on above: Performed By: #### H EMDF, PT, BMP3M, PHOS3, MG3, CK3 #### [address] #### VD25H #### [place] [address] [place] [address] Monocytes #/vol (Bld) 1.2 10*3/uL High 0.0-0.8 [facility] Comment on above: Performed By: #### H EMDF, PT, BMP3M, PHOS3, MG3, CK3 #### [address] #### VD25H #### [facility] [address] [place] [address] Monocytes/100 WBC (Bld) 7.7 % Normal 2.0-10.0 [facility] Comment on above: Performed By: #### H EMDF, PT, BMP3M, PHOS3, MG3, CK3 #### [address] #### VD25H #### [place] [address] [place] [address] Platelet mean volume Entitic volume (Bld) 8.1 fL Normal 7.4-10.4 [facility] Comment on above: Performed By: #### H EMDF, PT, BMP3M, PHOS3, MG3, CK3 #### [address] #### VD25H #### [facility] [address] [place] [address] Platelets #/vol (Bld) 197 10*3/uL Normal 140-440 [facility] Comment on above: Performed By: #### H EMDF, PT, BMP3M, PHOS3, MG3, CK3 #### [address] #### VD25H #### [address] [place] [address] RBC #/vol (Bld) 5.20 10*6/uL Normal 4.40-5.90 [facility] Comment on above: Performed By: #### H EMDF, PT, BMP3M, PHOS3, MG3, CK3 #### [address] #### VD25H #### [address] [place] [address] WBC #/vol (Bld) 15.4 10*3/uL High 3.6-10.7 [facility] Comment on above: Performed By: #### H EMDF, PT, BMP3M, PHOS3, MG3, CK3 #### [address] #### VD25H #### [address] [place] [address] MRI Spine Cervical w/o Contr birgit 07-09-2018 MRI Spine Cervical w/o Contrast Patient Name: KATHYA HOOPER MRI Exam Date/Time 07/09/2018 00:44:49 EDT Exam MRI Spine Cervical w/o Contrast Ordering Physician MD CHEYENNE, BRITTANY BERRY Accession Number [id number] CPT4 Codes 42441 () Reason For Exam CERVICAL SPINE FRACTURE [...] Transcribed Date and Time: 07/09/2018 7:45 Normal [facility] Magnesiumon 07-09-2018 Magnesium mass conc 2.2 mg/dL Normal 1.6-2.3 [facility] Comment on above: Performed By: #### H EMDF, PT, BMP3M, PHOS3, MG3, CK3 #### [facility] [address] [place] #### VD25H #### [facility] [address] [place] [address] Phosphoruson 07-09-2018 Phosphate mass conc 4.0 mg/dL Normal 2.5-4.5 [facility] Comment on above: Performed By: #### H EMDF, PT, BMP3M, PHOS3, MG3, CK3 #### [facility] [address] [place] #### VD25H #### [facility] [address] [place], [place] Prothrombin Timeon 9 INR Coag RelTime (PPP) 1.0 Normal 0.9-1.1 [facility] Comment on above: Result Comment: Yefri [...] EMDF, PT, BMP3M, PHOS3, MG3, CK3 #### [address] [place] [address] [place], [place] #### VD25H #### [facility] [address] [place], [place] Prothrombin time (PT) Coag time (PPP) 10.3 s Normal 9.0-12.0 [facility] Comment on above: Result Comment: . Performed By: #### H EMDF, PT, BMP3M, PHOS3, MG3, CK3 #### [facility] [address] [place], [place] #### VD25H #### [facility] [address] [place], [place] TS GELon 07-09-2018 TS GEL ABO Group: O Rh, Gel: POS Antibody Screen Gel: NEG Normal [facility] Comment on above: Performed By: #### T SGL #### [facility] [address] [place] [address] Vit D 25-OH, Totalon 019 Vit D 25-OH, Total 23 ng/mL Low 30-100 [facility] [employer] [facility] Comment on above: Result Comment: Ther apy is based on measurement of Total 25-OHD with the following classification levels: Less than 20 ng/mL: Indicative of Vit D deficiency 20-30 ng/mL: Suggests Vit D insufficiency Optimal: Greater than or equal to 30 ng/mL Test performed by [email or web address] Competitive Immunoassay, measuring Total Vitamin D, not individual fractions. Performed By: #### H EMDF, PT, BMP3M, PHOS3, MG3, CK3 #### [facility] [address] [place] [address] #### VD25H #### [facility] [address] [place] [address] Hematologyon 01-03-2003 Lymphocytes (Bld) [#/Vol] RECTUM, BIOPSY - BENIGN COLONIC MUCOSA WITH INTRAMUCOSAL LYMPHOID AGGREGATES. [facility] Otheron 01-03-2003 CONVERTED ELECTRONIC SIGNATURE BARBARA CASTILLO M.D., PATHOLOGIST (Electronic signature on file) Final Signed Out: 01/03/2003 15:[address] [facility] CONVERTED ORDERING PROVIDER Ordering Provider: BENI VERA [facility] Culture, urine Bacteria identified Cx Nom (U) Culture exhibits no growth. [facility] Work Phone: Vital Signs Date Time Vital Sign Value Performing Clinician Facility 10-02-2023 13:56-0400 Diastolic blood pressure 62 mm[Hg] Fei Farooq MD Work Phone: [facility] 10-02-2023 13:56-0400 Heart rate 104 /min Fei Farooq MD Work Phone: [facility] 10-02-2023 13:56-0400 SaO2% (BldA) [Mass fraction] 94 % Fei Farooq MD Work Phone: [facility] 10-02-2023 13:56-0400 Systolic blood pressure 124 mm[Hg] Fei Farooq MD Work Phone: [facility] 10-02-2023 11:13-0400 Respiratory rate 16 /min Fei Farooq MD Work Phone: [employer] 10-02-2023 09:47-0400 Body mass index (BMI) [Ratio] 26.19 kg/m2 Fei Farooq MD Work Phone: [facility] 10-02-2023 09:47-0400 Body temperature 98.01 [degF] Fei Farooq MD Work Phone: [facility] 10-02-2023 09:47-0400 Body weight 92.53 kg Fei Farooq MD Work Phone: [facility] 05-20-2022 18:30-0500 Body mass index (BMI) [Ratio] 26.32 kg/m2 Abelardo Gombash DO Work Phone: [facility] 05-20-2022 18:30-0500 Body temperature 97.3 [degF] Abelardo Gombash DO Work Phone: [facility] 05-20-2022 18:30-0500 Body weight 92.99 kg Abelardo Gombash DO Work Phone: [facility] 05-20-2022 18:30-0500 Diastolic blood pressure 108 mm[Hg] Abelardo Gombash DO Work Phone: [facility] 05-20-2022 18:30-0500 Heart rate 100 /min Abelardo Gombash DO Work Phone: [facility] 05-20-2022 18:30-0500 Respiratory rate 14 /min Abelardo Gombash DO Work Phone: [facility] 05-20-2022 18:30-0500 SaO2% (BldA) [Mass fraction] 98 % Abelardo Gombash DO Work Phone: [facility] 05-20-2022 18:30-0500 Systolic blood pressure 125 mm[Hg] Abelardo Gombash DO Work Phone: [facility] 05-15-2021 09:40-0500 Body height 188 cm Timothy Micheal DO Work Phone: [facility] 05-15-2021 09:40-0500 Body mass index (BMI) [Ratio] 23.75 kg/m2 Timothy Micheal DO Work Phone: [facility] 05-15-2021 09:40-0500 Body weight 83.92 kg Timothy Micheal DO Work Phone: [employer] 05-15-2021 09:38-0500 Body temperature 97.59 [degF] Timothy Micheal DO Work Phone: [employer] 05-15-2021 09:38-0500 Diastolic blood pressure 76 mm[Hg] Timothy Micheal DO Work Phone: [employer] 05-15-2021 09:38-0500 Heart rate 102 /min Timothy Micheal DO Work Phone: [employer] 05-15-2021 09:38-0500 Respiratory rate 16 /min Timothy Micheal DO Work Phone: [employer] 05-15-2021 09:38-0500 SaO2% (BldA) [Mass fraction] 99 % Timothy Micheal DO Work Phone: [employer] 05-15-2021 09:38-0500 Systolic blood pressure 115 mm[Hg] Timothy Micheal DO Work Phone: [employer] 03-24-2021 10:20-0500 Respiratory rate 18 /min Brady Nesheim DO Work Phone: [employer] 03-24-2021 10:20-0500 SaO2% (BldA) [Mass fraction] 94 % Brady Nesheim DO Work Phone: [facility] 03-24-2021 08:44-0500 Body temperature 97.7 [degF] Brady Nesheim DO Work Phone: [employer] 03-24-2021 08:44-0500 Diastolic blood pressure 55 mm[Hg] Brady Nesheim DO Work Phone: [facility] 03-24-2021 08:44-0500 Heart rate 85 /min Brady Nesheim DO Work Phone: [facility] 03-24-2021 08:44-0500 Systolic blood pressure 85 mm[Hg] Brady Nesheim DO Work Phone: [facility] 03-20-2021 13:41-0500 Body height 188 cm Brady Nesheim DO Work Phone: [facility] 03-20-2021 11:16-0500 Body mass index (BMI) [Ratio] 23.86 kg/m2 Brday Nesheim DO Work Phone: [facility] 03-20-2021 11:16-0500 Body weight 84.32 kg Brady Nesheim DO Work Phone: [facility] Comment on above: per Nataly RN (bed scal e measurement) on 03/20/2021 03-18-2021 15:02-0500 Body temperature 99.5 [degF] Boo Castro MD Work Phone: [facility] 03-18-2021 15:02-0500 Diastolic blood pressure 82 mm[Hg] Boo Castro MD Work Phone: [facility] 03-18-2021 15:02-0500 Heart rate 111 /min Boo Castro MD Work Phone: [facility] 03-18-2021 15:02-0500 Respiratory rate 18 /min Boo Castro MD Work Phone: [facility] 03-18-2021 15:02-0500 SaO2% (BldA) [Mass fraction] 93 % Boo Castro MD Work Phone: [facility] 03-18-2021 15:02-0500 Systolic blood pressure 111 mm[Hg] Boo Castro MD Work Phone: [facility] 10-30-2020 17:10-0400 Diastolic blood pressure 82 mm[Hg] Bethany Clemons MD Work Phone: [facility] Work Phone: 10-30-2020 17:10-0400 Heart rate 110 /min Bethany Clemons MD Work Phone: [facility] Work Phone: 10-30-2020 17:10-0400 Respiratory rate 16 /min Bethany Clemons MD Work Phone: [facility] Work Phone: 10-30-2020 17:10-0400 SaO2% (BldA) [Mass fraction] 99 % Bethany Clemons MD Work Phone: [employer] Work Phone: 10-30-2020 17:10-0400 Systolic blood pressure 125 mm[Hg] Bethany Clemons MD Work Phone: [employer] Work Phone: 10-30-2020 13:02-0400 Body mass index (BMI) [Ratio] 24.65 kg/m2 Bethany Clemons MD Work Phone: [employer] Work Phone: 10-30-2020 13:02-0400 Body temperature 96.91 [degF] Bethany Clemons MD Work Phone: [employer] Work Phone: 10-30-2020 13:02-0400 Body weight 87.09 kg Bethany Clemons MD Work Phone: [employer] Work Phone: 09-22-2020 05:01-0400 Diastolic blood pressure 76 mm[Hg] Elizabeth Moura MD Work Phone: [employer] Work Phone: 09-22-2020 05:01-0400 Systolic blood pressure 114 mm[Hg] Elizabeth Moura MD Work Phone: [employer] Work Phone: 09-22-2020 00:26-0400 Body temperature 97.81 [degF] Elizabeth Moura MD Work Phone: [employer] Work Phone: 09-22-2020 00:26-0400 Heart rate 86 [...] 100 % Elizabeth Moura MD Work Phone: [facility] Work Phone: 05-16-2019 23:00-0500 Systolic blood pressure 115 mm[Hg] Elizabeth Moura MD Work Phone: [facility] Work Phone: 05-16-2019 19:57-0500 Body temperature 98.49 [degF] Elizabeth Moura MD Work Phone: [facility] Work Phone: NEGATED: Highlighted [id number] 14:34-0500 BMI (Body Mass Index) 22.16 kg/m2 Ana Stevenson [employer] [facility] Work Phone: NEGATED: Highlighted [id number] 14:34-0500 Body weight 78.02 kg Ana Stevenson [employer] [facility] Work Phone: NEGATED: Highlighted [id number] 14:34-0500 Body weight 78 kg Ana Stevenson [employer] [facility] Work Phone: NEGATED: Highlighted [id number] 14:34-0500 BP Diastolic 66 mm[Hg] Ana Peoplesch [employer] [facility] Work Phone: NEGATED: Highlighted [id number] 14:34-0500 BP Systolic 102 mm[Hg] Ana Peoplesch [employer] [facility] Work Phone: NEGATED: Highlighted [id number] 14:34-0500 Height 187.96 cm Ana Stevenson [employer] [facility] Work Phone: NEGATED: Highlighted [id number] 14:34-0500 Height 188 cm Ana Stevenson [employer] [facility] Work Phone: NEGATED: Highlighted [id number] 14:34-0500 Pulse (Heart Rate) 104 /min Ana Stevenson LPN [facility] Work Phone: Encounters Encounter Date Encounter Type Care Provider Facility Start: 09-30-2024 ambulatory Renard GARLAND Faci lity:[facility] Start: 09-24-2024 ambulatory Renard GARLAND Faci lity:[facility] Start: 09-24-2024 Registered Referred Renard Burgos - [facility] Start: 09-16-2024 ambulatory Renard GARLAND Faci lity:[facility] Start: 09-16-2024 Registered Referred Renard Burgos - [facility] Start: 09-11-2024 Registered Referred Renard Burgos - [facility] Start: 09-11-2024 End: 09-11-2024 ambulatory Renard GARLAND Facility:[facility] Start: 09-09-2024 End: 09-09-2024 ambulatory Renard GARLAND [facility] Work Phone: Start: 09-09-2024 End: 09-09-2024 Departed Referred Renard Burgos -[facility] Start: 09-09-2024 Registered Referred Renard Burgos - [facility] Start: 09-09-2024 End: 09-09-2024 ambulatory Renard GARLAND Facility:[facility] Start: 09-02-2024 Registered Referred Renard Burgos - [facility] Start: 09-02-2024 End: 09-02-2024 ambulatory Renard GARLAND Facility:[facility] Start: 08-26-2024 End: 08-26-2024 ambulatory Renard GARLAND [facility] Work Phone: Start: 08-26-2024 End: 08-26-2024 Departed Referred Renard Amezquitaros -[facility] Start: 08-26-2024 Registered Referred Renard Amezquitaros - [facility] Start: 08-26-2024 End: 08-26-2024 ambulatory Renard GARLAND Facility:[facility] Start: 08-23-2024 End: 08-23-2024 Departed Referred Renard Amezquitaros -[facility] Start: 08-23-2024 Registered Referred Renard Hensleysaros - [facility] Start: 08-23-2024 End: 08-23-2024 ambulatory Renard GARLAND Facility:[facility] Start: 08-19-2024 End: 08-19-2024 ambulatory Renard GARLAND [facility] Work Phone: Start: 08-19-2024 End: 08-19-2024 Departed Referred Renard Amezquitaros -[facility] Start: 08-19-2024 Registered Referred Renard Amezquitaros - [facility] Start: 08-19-2024 End: 08-19-2024 ambulatory Renard GARLAND Facility:[facility] Start: 08-12-2024 End: 08-12-2024 ambulatory Renard GARLAND [facility] Work Phone: Start: 08-12-2024 End: 08-12-2024 Departed Referred Renard Amezquitaros -[facility] Start: 08-12-2024 Registered Referred Renard Amezquitaros - [facility] Start: 08-12-2024 End: 08-12-2024 ambulatory Renard GARLAND Facility:[facility] Start: 08-05-2024 End: 08-05-2024 Departed Referred Renard Amezquitaros -[facility] Start: 08-05-2024 Registered Referred Renard Amezquitaros - [facility] Start: 08-05-2024 End: 08-05-2024 ambulatory Renard GARLAND Facility:[facility] Start: 07-29-2024 End: 07-29-2024 ambulatory Renard Shelliediego GARLAND [facility] Work Phone: Start: 07-29-2024 End: 07-29-2024 Departed Referred Renard [facility] Start: 07-29-2024 Registered Referred Renard [facility]ina[facility] Start: 07-29-2024 End: 07-29-2024 ambulatory Renard GARLAND Facility:[facility] Start: 07-22-2024 End: 07-22-2024 ambulatory Renard GARLAND [facility] Work Phone: Start: 07-22-2024 End: 07-22-2024 Departed Referred Renard Burgos -[facility] Start: 07-22-2024 Registered Referred Renard Jayctuary [facility] Start: 07-22-2024 End: 07-22-2024 ambulatory Renard GARLAND Facility:[facility] Start: 07-16-2024 End: 07-16-2024 ambulatory Renard GARLAND [facility] Work Phone: Start: 07-16-2024 End: 07-16-2024 Departed Referred Renard [facility] Start: 07-16-2024 Registered Referred Renard Burgos - [facility] [employer] Start: 07-15-2024 End: 07-16-2024 ambulatory Renard GARLAND [facility] Work Phone: Start: 07-15-2024 End: 07-15-2024 Departed Referred Renard Burgos -[facility] Start: 07-15-2024 Registered Referred Renard Molinauary [facility] Start: 07-15-2024 End: 07-15-2024 ambulatory Renard GARLAND Facility:[facility] Start: 07-08-2024 End: 07-08-2024 ambulatory Renard GARLAND [facility] Work Phone: Start: 07-08-2024 End: 07-08-2024 Departed Referred Peter Katsaros -[facility] Start: 07-08-2024 Registered Referred Renard Burgos - [facility] [employer] Start: 07-08-2024 End: 07-08-2024 ambulatory Renard GARLAND Facility:[facility] Start: 07-01-2024 End: 07-01-2024 ambulatory Renard GARLAND [facility] Work Phone: Start: 07-01-2024 End: 07-01-2024 Departed Referred Renard Burgos -[facility] Start: 07-01-2024 Registered Referred Renard Burgos - [facility] Start: 07-01-2024 End: 07-01-2024 ambulatory Renard GARLAND Facility:[facility] Start: 06-27-2024 End: 06-27-2024 ambulatory Renard GARLAND [facility] Work Phone: Start: 06-27-2024 End: 06-27-2024 Departed Referred Renard Burgos -[facility] [employer] Start: 06-27-2024 Registered Referred Renard Burgos - [facility] Start: 06-27-2024 End: 06-27-2024 ambulatory Renard GARLAND Facility:[facility] Start: 06-24-2024 End: 06-24-2024 Subsequent hospital visit by physician Rashaad Pink NP Work Phone: [facility] CT Imaging Comment on above: Chronic cough Start: 06-24-2024 End: 06-24-2024 ambulatory RASHAAD SMITH [facility] Start: 06-24-2024 End: 06-24-2024 Departed Referred Renard Burgos -[facility] Start: 06-24-2024 Registered Referred Renard Burgos - [facility] [employer] [facility] Start: 06-24-2024 End: 06-24-2024 ambulatory Renard GARLAND Facility:[facility] Start: 06-17-2024 End: 06-17-2024 ambulatory Renard GARLAND [facility] Work Phone: Start: 06-17-2024 End: 06-17-2024 Departed Referred Renard [facility] Start: 06-17-2024 Registered Referred [facility] Start: 06-17-2024 End: 06-17-2024 ambulatory Renard GARLAND Facility:[facility] Start: 06-12-2024 End: 09-11-2024 Transcribe Orders Rashaad Smith [employer] Work Phone: [facility] Central Scheduling Comment on above: Chronic cough (Prima ry Dx) Start: 06-10-2024 End: 06-10-2024 ambulatory Renard GARLAND [facility] Work Phone: Start: 06-10-2024 End: 06-10-2024 Departed Referred Renard [facility] Start: 06-10-2024 Registered Referred Renard [facility] Start: 06-10-2024 End: 06-10-2024 ambulatory Renard GARLAND Facility:[facility] Start: 06-07-2024 End: 06-07-2024 ambulatory Renard GARLAND [facility] Work Phone: Start: 06-07-2024 End: 06-07-2024 Departed Referred Renard [facility] Start: 06-07-2024 Registered Referred Renard Mol[facility] Start: 06-07-2024 End: 06-07-2024 ambulatory Renard GARLAND Facility:[facility] Start: 06-03-2024 End: 06-03-2024 ambulatory Renard GARLAND [facility] Work Phone: Start: 06-03-2024 End: 06-03-2024 Departed Referred Renard [facility] Start: 06-03-2024 End: 06-03-2024 ambulatory Renard GARLAND Facility:[facility] Start: 05-27-2024 End: 05-27-2024 Departed Referred Renard Pattersonctuary [facility] Start: 05-27-2024 End: 05-27-2024 ambulatory Renard GARLAND Facility:[facility] Start: 05-20-2024 End: 05-20-2024 Departed Referred Renard Burgos -[facility] Start: 05-20-2024 End: 05-20-2024 ambulatory Renard GARLAND Facility:[facility] Start: 05-13-2024 End: 05-13-2024 Departed Referred Renard Burgos -[facility] [employer] [facility] Start: 05-13-2024 End: 05-13-2024 ambulatory Renard GARLAND Facility:[facility] Start: 05-06-2024 End: 05-06-2024 Departed Referred Renard Burgos -[facility] [employer] [facility] Start: 05-06-2024 End: 05-06-2024 ambulatory Renard GARLAND Facility:[facility] Start: 05-03-2024 End: 05-03-2024 Telephone encounter Renard Cramer Phone: [facility] Clinical Communication Comment on above: Other Start: 04-29-2024 End: 04-29-2024 Departed Referred Renard Burgos -[facility] [employer] [facility] Start: 04-29-2024 End: 04-29-2024 ambulatory Renard GARLAND Facility:[facility] Start: 04-22-2024 End: 04-22-2024 Departed Referred Renard Burgos -[facility] [employer] [facility] Start: 04-22-2024 End: 04-22-2024 ambulatory Renard GARLAND Facility:[facility] Start: 04-15-2024 End: 04-15-2024 Departed Referred Renard Burgos -[facility] [employer] [facility] Start: 04-15-2024 End: 04-15-2024 ambulatory Renard GARLAND Facility:[facility] Start: 04-08-2024 ambulatory Renard GARLAND Faci lity:[facility] Start: 04-08-2024 Registered Referred Renard Burgos - [facility] [employer] [facility] Start: 04-01-2024 ambulatory Renard GARLAND Faci lity:[facility] Start: 04-01-2024 Registered Referred Renard Burgos - [facility] [employer] [facility] Start: 03-25-2024 End: 03-25-2024 Departed Referred Renard Burgos -[facility] Start: 03-25-2024 End: 03-25-2024 ambulatory Renard Hensleysahola OLS Facility:[facility] Start: 03-18-2024 End: 03-18-2024 Departed Referred Renard Burgos -[facility] Start: 03-18-2024 End: 03-18-2024 ambulatory Renard Hensleysahola OLS Facility:[facility] Start: 03-11-2024 End: 03-11-2024 Departed Referred Renard Shelliediego -[facility] [employer] [facility] Start: 03-11-2024 End: 03-11-2024 ambulatory Renard Burgos OLS Facility:[facility] Start: 03-04-2024 End: 03-04-2024 ambulatory Renard Burgos OLS Facility:[facility] Start: 02-26-2024 End: 02-26-2024 ambulatory Renard Burgos OLS Facility:[facility] Start: 02-23-2024 End: 02-23-2024 ambulatory Renard Burgos OLS Facility:[facility] Start: 02-19-2024 End: 02-19-2024 ambulatory Renard Burgos OLS Facility:[facility] Start: 02-12-2024 End: 02-12-2024 ambulatory Renard Hensleysahola OLS Facility:[facility] Start: 02-05-2024 End: 02-05-2024 ambulatory Renard Burgos OLS Facility:[facility] Start: 01-29-2024 End: 01-29-2024 ambulatory Renard Hensleysahola OLS Facility:[facility] Start: 01-22-2024 End: 01-22-2024 ambulatory Renard Hensleysaros OLS Facility:[facility] Start: 01-15-2024 ambulatory Renard Hensleysahola OLS Faci lity:[facility] Start: 01-08-2024 End: 01-08-2024 ambulatory Renard Hensleysaros OLS Facility:[facility] Start: 01-02-2024 ambulatory Renard Burgos OLS Faci lity:[facility] Start: 12-25-2023 ambulatory Renard Hensleysaros OLS Faci lity:[facility] Start: 12-18-2023 End: 12-18-2023 ambulatory Renard GARLAND Facility:[facility] Start: 12-11-2023 End: 12-11-2023 ambulatory Renard Shelliesaros OLS Facility:[facility] Start: 12-04-2023 End: 12-04-2023 ambulatory Renard Shelliediego OLS Facility:[facility] Start: 11-27-2023 End: 11-27-2023 ambulatory Renard Burgos OLS Facility:[facility] Start: 11-22-2023 End: 11-22-2023 ambulatory RENARD SHELLIEDIEGO [facility] Start: 11-22-2023 End: 11-22-2023 Subsequent hospital visit by physician Renard Burgos Work Phone: [facility] X-ray Imaging Comment on above: Dysphagia, oropharyn geal phase; Feeding difficulties Start: 11-20-2023 End: 11-20-2023 ambulatory Renard GARLAND Facility:[facility] Start: 11-13-2023 End: 11-13-2023 ambulatory Renard Shelliediego GARLAND Facility:[facility] Start: 11-06-2023 End: 11-06-2023 ambulatory Renard GARLAND Facility:[facility] Start: 10-30-2023 End: 10-30-2023 ambulatory Renard Shelliediego [place] Facility:[facility] Start: 10-23-2023 End: 10-23-2023 ambulatory Renard GARLAND Facility:[facility] Start: 10-16-2023 End: 01-15-2024 Transcribe Orders Renard Burgos Work Phone: [facility] Central Scheduling Comment on above: Dysphagia, oropharyn geal phase (Primary Dx); Feeding difficulties Start: 10-16-2023 End: 10-16-2023 ambulatory Renard GARLAND Facility:[facility] Start: 10-09-2023 End: 10-09-2023 ambulatory Renard GARLAND Facility:[facility] Start: 10-02-2023 End: 10-02-2023 Emergency department patient visit Fei Farooq MD Work Phone: [facility] ED Comment on above: Dyspnea, unspecified type (Primary Dx) Start: 08-07-2023 [facility] Start: 07-31-2023 End: 07-31-2023 ambulatory [facility] Work Phone: Start: 07-31-2023 End: 07-31-2023 [facility]ed [facility] Start: 07-31-2023 [facility] Start: 07-24-2023 End: 07-24-2023 ambulatory [facility] Work Phone: Start: 07-24-2023 End: 07-24-2023 Dep[facility]ed [facility] Start: 07-17-2023 End: 07-17-2023 ambulatory [facility] Work Phone: Start: 07-17-2023 End: 07-17-2023 [facility]ed [facility]erred [facility] Start: 07-17-2023 [facility] Start: 07-10-2023 End: 07-10-2023 ambulatory [facility] Work Phone: Start: 07-10-2023 End: 07-10-2023 Departed [facility]erred [facility] Start: 07-10-2023 [facility] Start: 07-03-2023 End: 07-03-2023 ambulatory [facility] Work Phone: Start: 07-03-2023 End: 07-03-2023 Departed [facility] Start: 07-03-2023 [facility] Start: 06-26-2023 [facility] [employer] Start: 06-19-2023 End: 06-19-2023 ambulatory [facility] Work Phone: Start: 06-19-2023 End: 06-19-2023 Departed Referred [facility] Start: 06-19-2023 Registered Referred [facility] [employer] [facility] Start: 06-12-2023 End: 06-12-2023 ambulatory [facility] Work Phone: Start: 06-12-2023 End: 06-12-2023 [facility] Start: 06-12-2023 [facility] Start: 06-05-2023 End: 06-05-2023 ambulatory [facility] Work Phone: Start: 06-05-2023 End: 06-05-2023 [facility] Start: 06-05-2023 [facility] Start: 05-29-2023 End: 05-29-2023 [facility] Start: 05-29-2023 Registered Referred [facility] [employer] Start: 05-22-2023 End: 05-22-2023 ambulatory [facility] Work Phone: Start: 05-22-2023 End: 05-22-2023 [facility] Start: 05-22-2023 Registered Referred [facility] Start: 05-15-2023 End: 05-15-2023 Departed Referred [facility] Start: 05-15-2023 Registered [facility] Start: 05-08-2023 End: 05-08-2023 ambulatory [facility] Work Phone: Start: 05-08-2023 End: 05-08-2023 [facility] Start: 04-17-2023 End: 04-17-2023 ambulatory [facility] Work Phone: Start: 04-17-2023 End: 04-17-2023 [facility] Start: 04-17-2023 Registered Referred [facility] Start: 04-14-2023 End: 04-14-2023 ambulatory [facility] Work Phone: Start: 04-14-2023 End: 04-14-2023 [facility] Start: 04-14-2023 Registered Referred [facility] [employer] Start: 04-10-2023 End: 04-10-2023 [facility] Start: 04-10-2023 [facility] Start: 04-03-2023 End: 04-03-2023 ambulatory [facility] Work Phone: Start: 04-03-2023 End: 04-03-2023 [facility] Start: 04-03-2023 [facility] Start: 03-27-2023 End: 03-27-2023 ambulatory [facility] Work Phone: Start: 03-27-2023 End: 03-27-2023 [facility] Start: 03-27-2023 [facility] Start: 03-20-2023 End: 03-20-2023 ambulatory [facility] Work Phone: Start: 03-20-2023 End: 03-20-2023 [facility] Start: 03-20-2023 [facility] Start: 03-16-2023 End: 03-16-2023 ambulatory [facility] Work Phone: Start: 03-16-2023 End: 03-16-2023 [facility] Start: 03-16-2023 Registered Referred [facility] [employer] [facility] Start: 03-13-2023 End: 03-13-2023 ambulatory [facility] Work Phone: Start: 03-13-2023 End: 03-13-2023 [facility] Start: 03-06-2023 End: 03-06-2023 ambulatory [facility] Work Phone: Start: 03-06-2023 End: 03-06-2023 [facility] Start: 03-06-2023 [facility] Start: 02-27-2023 End: 02-27-2023 ambulatory [facility] Work Phone: Start: 02-27-2023 End: 02-27-2023 [facility] Start: 02-20-2023 End: 02-20-2023 ambulatory [facility] Work Phone: Start: 02-20-2023 End: 02-20-2023 [facility] Start: 02-20-2023 [facility] Start: 02-13-2023 End: 02-13-2023 ambulatory [facility] Work Phone: Start: 02-13-2023 End: 02-13-2023 [facility] Start: 02-13-2023 Registered Referred [facility] Start: 02-06-2023 End: 02-06-2023 ambulatory [facility] Work Phone: Start: 02-06-2023 End: 02-06-2023 Departed Referred [facility] Start: 02-06-2023 Registered Referred [facility] [employer] [facility] Start: 01-30-2023 End: 01-30-2023 ambulatory [facility] Work Phone: Start: 01-30-2023 End: 01-30-2023 Departed Referred [facility] [employer] [facility] Start: 01-30-2023 [facility]istered [facility] [employer] [facility] Start: 01-23-2023 End: 01-23-2023 Departed Referred [facility] Start: 01-23-2023 Registered Referred [facility] [employer] [facility] Start: 01-16-2023 End: 01-16-2023 ambulatory [facility] Work Phone: Start: 01-16-2023 End: 01-16-2023 [facility] Start: 01-16-2023 Registered Referred [facility] Start: 01-09-2023 End: 01-09-2023 Departed Referred [facility] Start: 01-09-2023 Registered Referred [facility] Start: 01-03-2023 End: 01-03-2023 ambulatory [facility] Work Phone: Start: 01-03-2023 End: 01-03-2023 Departed Referred [facility] Start: 01-03-2023 Registered Referred [facility] Start: 12-26-2022 End: 12-26-2022 ambulatory [facility] Work Phone: Start: 12-26-2022 End: 12-26-2022 Departed Referred [facility] Start: 12-26-2022 Registered [facility] [employer] Start: 12-19-2022 End: 12-19-2022 ambulatory [facility] Work Phone: Start: 12-19-2022 End: 12-19-2022 [facility] Start: 12-19-2022 Registered [facility] [employer] Start: 12-12-2022 End: 12-12-2022 [facility]ed [facility] Start: 12-12-2022 [facility] [employer] Start: 12-05-2022 End: 12-05-2022 ambulatory [facility] Work Phone: Start: 12-05-2022 End: 12-05-2022 [facility] Start: 12-05-2022 [facility] [employer] Start: 11-28-2022 End: 11-28-2022 ambulatory [facility] Work Phone: Start: 11-28-2022 End: 11-28-2022 [facility] [employer] Start: 11-28-2022 [facility] Start: 11-21-2022 End: 11-21-2022 ambulatory [facility] Work Phone: Start: 11-21-2022 End: 11-21-2022 [facility] [employer] Start: 11-21-2022 [facility] Start: 11-14-2022 End: 11-14-2022 ambulatory [facility] Work Phone: Start: 11-14-2022 End: 11-14-2022 Departed Referred Access [facility] Start: 11-14-2022 [facility] Start: 11-07-2022 [facility] Start: 10-31-2022 End: 10-31-2022 ambulatory [facility] Work Phone: Start: 10-31-2022 End: 10-31-2022 Departed Referred [facility] Start: 10-31-2022 Registered Referred [facility] Start: 10-24-2022 End: 10-24-2022 ambulatory [facility] Work Phone: Start: 10-24-2022 End: 10-24-2022 Departed Referred [facility] [employer] [employer] [facility] Start: 10-24-2022 Registered Referred [facility] Start: 10-17-2022 End: 10-17-2022 Departed Referred [facility] Start: 10-17-2022 Registered Referred [facility] Start: 10-10-2022 End: 10-10-2022 ambulatory [facility] Work Phone: Start: 10-10-2022 End: 10-10-2022 Departed Referred [facility] [employer] Start: 10-10-2022 Registered Referred [facility] [employer] [facility] Start: 10-03-2022 End: 10-03-2022 ambulatory [facility] Work Phone: Start: 10-03-2022 End: 10-03-2022 Departed Referred [facility] Start: 09-19-2022 End: 09-19-2022 Departed Referred [facility] Start: 09-19-2022 Registered Referred [facility] [employer] [facility] Start: 09-12-2022 End: 09-12-2022 ambulatory [facility] Work Phone: Start: 09-12-2022 End: 09-12-2022 Departed Referred [facility] Start: 09-05-2022 End: 09-05-2022 Departed Referred [facility] [employer] Start: 09-05-2022 Registered Referred [facility] [employer] [facility] Start: 08-29-2022 End: 08-29-2022 Departed Referred [facility] Start: 08-29-2022 Registered Referred [facility] [employer] [facility] Start: 08-22-2022 End: 08-22-2022 ambulatory [facility] Work Phone: Start: 08-22-2022 End: 08-22-2022 Departed Referred [facility] [employer] [facility] Start: 08-22-2022 Registered Referred [facility] Start: 08-15-2022 End: 08-15-2022 ambulatory [facility] Work Phone: Start: 08-15-2022 End: 08-15-2022 Departed Referred [facility] Start: 08-15-2022 Registered Referred [facility] Start: 08-08-2022 End: 08-08-2022 Departed Referred [facility] Start: 08-08-2022 Registered Referred [facility] [employer] [facility] Start: 08-01-2022 End: 08-01-2022 ambulatory [facility] Work Phone: Start: 08-01-2022 End: 08-01-2022 Departed Referred [facility] Start: 08-01-2022 Registered Referred [facility] [employer] [facility] Start: 07-25-2022 End: 07-25-2022 ambulatory [facility] Work Phone: Start: 07-25-2022 End: 07-25-2022 Departed Referred [facility] [employer] [facility] Start: 07-25-2022 Registered Referred [facility] [employer] Start: 07-19-2022 End: 07-19-2022 Departed Referred [facility] [employer] Start: 07-19-2022 [facility] [employer] Start: 07-18-2022 End: 07-18-2022 ambulatory [facility] Work Phone: Start: 07-18-2022 End: 07-18-2022 [facility]ed [facility] Start: 07-18-2022 [facility] Start: 07-11-2022 End: 07-11-2022 ambulatory [facility] Work Phone: Start: 07-11-2022 End: 07-11-2022 Dep[facility]ed [facility] Start: 07-11-2022 [facility] Start: 07-04-2022 End: 07-04-2022 [facility]ed [facility] Start: 07-04-2022 [facility] Start: 06-27-2022 End: 06-27-2022 ambulatory [facility] Work Phone: Start: 06-27-2022 End: 06-27-2022 Dep[facility]ed [facility] Start: 06-27-2022 [facility] Start: 06-20-2022 End: 06-20-2022 ambulatory [facility] Work Phone: Start: 06-20-2022 End: 06-20-2022 [facility]ed [facility] Start: 06-20-2022 Registered [facility] Start: 06-13-2022 End: 06-13-2022 ambulatory [facility] Work Phone: Start: 06-13-2022 End: 06-13-2022 [facility]ed [facility] Start: 06-13-2022 [facility] [employer] [facility] Start: 06-06-2022 End: 06-06-2022 [facility] Start: 06-06-2022 [facility] [employer] Start: 05-30-2022 End: 05-30-2022 ambulatory [facility] Work Phone: Start: 05-30-2022 End: 05-30-2022 [facility] [employer] [facility] Start: 05-23-2022 End: 05-23-2022 ambulatory [facility] Work Phone: Start: 05-23-2022 End: 05-23-2022 Departed Referred [facility] Start: 05-23-2022 Registered Referred [facility] Start: 05-20-2022 End: 05-20-2022 Emergency department patient visit Abelardo Rios Work Phone: [facility] Comment on above: Dislodged gastrostom y tube (Primary Dx) Start: 05-16-2022 End: 05-16-2022 Departed Referred [facility] Start: 05-16-2022 Registered [facility] Start: 05-09-2022 End: 05-09-2022 ambulatory [facility] Work Phone: Start: 05-09-2022 End: 05-09-2022 [facility] Start: 05-09-2022 [facility] Start: 05-03-2022 End: 05-03-2022 ambulatory [facility] Work Phone: Start: 05-03-2022 End: 05-03-2022 Departed Referred [facility] [employer] Start: 05-03-2022 Registered [facility] Start: 04-26-2022 End: 04-26-2022 Departed Referred [facility] [employer] [facility] Start: 04-26-2022 Registered Referred [facility] Start: 04-18-2022 End: 04-18-2022 ambulatory [facility] Work Phone: Start: 04-18-2022 End: 04-18-2022 Departed Referred [facility] [employer] [facility] Start: 04-18-2022 [facility] Start: 04-14-2022 End: 04-14-2022 ambulatory [facility] Work Phone: Start: 04-14-2022 End: 04-14-2022 [facility] Start: 04-14-2022 Registered [facility] Start: 04-11-2022 End: 04-11-2022 ambulatory [facility] Work Phone: Start: 04-11-2022 End: 04-11-2022 [facility]ed [facility] Start: 04-11-2022 Registered Referred [facility] Start: 04-04-2022 End: 04-04-2022 ambulatory [facility] Work Phone: Start: 04-04-2022 End: 04-04-2022 Departed Referred [facility] [employer] [facility] Start: 04-04-2022 Registered Referred [facility] Start: 03-28-2022 End: 03-28-2022 ambulatory [facility] Work Phone: Start: 03-28-2022 End: 03-28-2022 [facility]ed [facility] Start: 03-28-2022 Registered [facility] Start: 03-21-2022 End: 03-21-2022 ambulatory [facility] Work Phone: Start: 03-21-2022 End: 03-21-2022 Departed Referred [facility] [employer] Start: 03-21-2022 Registered Referred [facility] Start: 03-14-2022 End: 03-14-2022 [facility]ed [facility] Start: 03-14-2022 Registered Referred [facility] Start: 2022 End: 2022 ambulatory [facility] Work Phone: Start: 2022 End: 2022 Dep[facility]ed [facility] Start: 2022 Registered Referred [facility] Start: 02-28-2022 End: 02-28-2022 Dep[facility]ed [facility] Start: 02-28-2022 Registered Referred [facility] [employer] [facility] Start: 02-21-2022 End: 02-21-2022 ambulatory [facility] Work Phone: Start: 02-21-2022 End: 02-21-2022 Dep[facility]ed [facility] Start: 02-21-2022 Registered Referred [facility] Start: 02-14-2022 End: 02-14-2022 ambulatory [facility] Work Phone: Start: 02-14-2022 End: 02-14-2022 [facility] Start: 02-14-2022 [facility] Start: 02-07-2022 End: 02-07-2022 ambulatory [facility] Work Phone: Start: 02-07-2022 End: 02-07-2022 Departed Referred [facility] [employer] [facility] Start: 02-07-2022 Registered [facility] Start: 01-31-2022 End: 01-31-2022 ambulatory [facility] Work Phone: Start: 01-31-2022 End: 01-31-2022 [facility] Start: 01-31-2022 Registered [facility] Start: 01-24-2022 End: 01-24-2022 ambulatory [facility] Work Phone: Start: 01-24-2022 End: 01-24-2022 [facility] [employer] [facility] Start: 01-24-2022 [facility] Start: 01-17-2022 End: 01-17-2022 [facility] [employer] [employer] [facility] Start: 01-17-2022 [facility] Start: 01-10-2022 End: 01-10-2022 ambulatory [facility] Work Phone: Start: 01-10-2022 End: 01-10-2022 [facility] Start: 01-10-2022 Registered [facility] [employer] Start: 01-04-2022 End: 01-04-2022 ambulatory [facility] Work Phone: Start: 01-04-2022 End: 01-04-2022 [facility] [employer] [employer] [facility] Start: 01-04-2022 Registered [facility] [employer] Start: 12-27-2021 End: 12-27-2021 ambulatory [facility] Work Phone: Start: 12-27-2021 End: 12-27-2021 [facility] [employer] [employer] [facility] Start: 12-27-2021 Registered [facility] [employer] [facility] Start: 12-20-2021 End: 12-20-2021 ambulatory [facility] Work Phone: Start: 12-20-2021 End: 12-20-2021 Departed Referred [facility] [employer] Start: 12-20-2021 [facility] [employer] [facility] Start: 12-13-2021 End: 12-13-2021 Departed Referred [facility] Start: 12-13-2021 Reg[facility] Start: 12-06-2021 End: 12-06-2021 ambulatory [facility] Work Phone: Start: 12-06-2021 End: 12-06-2021 [facility] Start: 12-06-2021 Registered Referred [facility] [employer] [facility] Start: 11-29-2021 End: 11-29-2021 ambulatory [facility] Work Phone: Start: 11-29-2021 End: 11-29-2021 Departed Referred [facility] [employer] [facility] Start: 11-29-2021 Registered Referred [facility] Start: 11-22-2021 End: 11-22-2021 Departed Referred [facility] Start: 11-22-2021 Registered [facility] Start: 11-15-2021 End: 11-15-2021 Departed Referred [facility] [employer] [place] [facility] Start: 11-15-2021 Registered Referred [facility] [employer] [facility] Start: 11-08-2021 End: 11-08-2021 Departed Referred [facility] [employer] [facility] Start: 10-25-2021 Registered [facility] [employer] [employer] [facility] Start: 10-18-2021 Registered [facility] [employer] [facility] Start: 10-11-2021 Registered Referred [facility] [employer] [facility] Start: 10-04-2021 Registered Referred [facility] Start: 09-28-2021 End: 09-28-2021 Departed Referred [facility] [employer] [place] [facility] Start: 09-28-2021 Registered Referred [facility] Start: 09-20-2021 End: 09-20-2021 Dep[facility] Start: 09-20-2021 [facility] Start: 09-13-2021 End: 09-13-2021 Dep[facility]ed [facility] Start: 09-13-2021 Registered [facility] Start: 09-06-2021 End: 09-06-2021 Dep[facility]ed [facility] Start: 09-06-2021 Registered [facility] Start: 08-30-2021 End: 08-30-2021 Departed Referred [facility] Start: 08-30-2021 Registered Referred [facility] [employer] [facility] Start: 08-23-2021 End: 08-23-2021 Dep[facility] Start: 08-23-2021 Registered Referred [facility] [employer] [facility] Start: 08-18-2021 End: 08-18-2021 Departed Referred [facility] [employer] [employer] [facility] Start: 08-18-2021 Registered Referred [facility] [employer] [employer] [facility] Start: 08-16-2021 End: 08-16-2021 Departed Referred [facility] [place] [facility] Start: 08-16-2021 Registered Referred [facility] [employer] [employer] [facility] Start: 08-09-2021 End: 08-09-2021 Departed Referred [facility] [employer] [employer] [facility] Start: 08-02-2021 End: 08-02-2021 Departed Referred [facility] Start: 08-02-2021 Registered Referred [facility] Start: 07-26-2021 End: 07-26-2021 [facility] Start: 07-26-2021 Registered Referred [facility] Start: 07-19-2021 End: 07-19-2021 [facility]ed [facility] Start: 07-19-2021 [facility] Start: 07-12-2021 End: 07-12-2021 Dep[facility]ed [facility] Start: 07-05-2021 End: 07-05-2021 Dep[facility]ed [facility] Start: 07-05-2021 Registered Referred [facility] [employer] [facility] Start: 06-28-2021 End: 06-28-2021 Dep[facility]ed [facility] Start: 06-28-2021 Registered Referred [facility] [employer] [place] [facility] Start: 06-21-2021 End: 06-21-2021 Dep[facility]ed [facility] Start: 06-21-2021 Registered Referred [facility] Start: 06-14-2021 Registered [facility] Start: 06-07-2021 End: 06-07-2021 [facility]ed [facility] Start: 06-07-2021 Registered [facility] Start: 05-31-2021 End: 05-31-2021 Dep[facility]ed [facility] Start: 05-31-2021 Registered Referred [facility] Start: 05-24-2021 End: 05-24-2021 Departed Ref[facility] Start: 05-17-2021 Registered Referred [facility] Start: 05-15-2021 End: 05-15-2021 Emergency department patient visit Timothy Burton DO Work Phone: [facility] ED Comment on above: PEG tube malfunction (HCC) (Primary Dx) Start: 05-14-2021 Registered Referred [facility] Start: 05-10-2021 [facility] Start[facility] 05-03-2021 Registered Referred [facility] Start: 04-26-2021 [facility] Start: 04-19-2021 [facility] Start: 04-12-2021 Registered Referred [facility] Start: 04-07-2021 Registered Referred [facility] Start: 03-19-2021 End: 03-24-2021 Evaluation and management of inpatient Brady Desai DO Work Phone: [facility] Comment on above: Respiratory syncytia l virus (RSV) (Primary Dx); Hypoxia Start: 03-18-2021 End: 03-18-2021 Emergency department patient visit Boo Castro MD [facility] Comment on above: Respiratory syncytia l virus (RSV) (Primary Dx); Hypoxia Start: 10-30-2020 End: 10-30-2020 Emergency department patient visit Bethany Clemons MD [facility] Comment on above: Feeding tube dysfunc tion, initial encounter (Primary Dx) Start: 09-22-2020 End: 09-22-2020 Emergency department patient visit Elizabeth Moura MD [facility] Comment on above: PEG tube malfunction (HCC) (Primary Dx) Start: 06-26-2020 End: 06-26-2020 Emergency department patient visit Abelardo Rios Work Phone: [facility] Comment on above: PEG tube malfunction (HCC) (Primary Dx) Start: 05-22-2019 End: 05-22-2019 Patient encounter procedure Jarvis Kendall MD Work Phone: [facility] Work Phone: Start: 05-22-2019 End: 05-22-2019 Pt evaluation Jarvis Kendall MD Work Phone: [facility] Work Phone: Start: 05-16-2019 End: 05-16-2019 Emergency department patient visit Elizabeth Moura MD Work Phone: [facility] Comment on above: Contusion of right h ip, initial encounter (Primary Dx) Start: 08-15-2018 Evaluation and management of inpatient UNKNOWN PROVIDER [facility] Start: 07-08-2018 Evaluation and management of inpatient JORDAN GEUBE [facility] Start: 01-02-2003 End: 01-02-2003 Patient encounter procedure Beni Vera Work Phone: [facility] Start: 01-02-2003 Results Only Beni Vera Work Phone: [facility] Procedures Date Procedure Procedure Detail Performing Clinician [...] ev cleared fda spec home use Rafa Michle MD Work Phone: Start: 03-23-2021 Gluc bld [...] d ev cleared fda spec home use Rfaa Michel MD Work Phone: Start: 03-22-2021 Gluc [...] EMDF, PT, BMP3M, PHOS3, MG3, CK3 #### [employer] [facility] [address], [place] #### [id number] #### [employer] [facility] [address] [place] [address] Start: 07-27-2018 Microscopic examinat ion of blood, culture Comment on above: Order Comment: Speci men Source Comment:Blood Performed By: #### H EMDF, PT, BMP3M, PHOS3, MG3, CK3 #### [employer] [facility] [address], [place] #### [id number] #### [employer] [facility] [address] [place] [address] Start: 07-19-2018 Microscopic examinat ion of blood, culture Comment on above: Order Comment: Speci men Source Comment:Blood Performed By: #### H EMDF, PT, BMP3M, PHOS3, MG3, CK3 #### [facility] [address] [facility] [place] [address] #### [id number] #### [facility] [address] [place] [address] Start: 01-02-2003 CONVERTED SURGICAL PATHOLOGY Benimargarita Vera [...] for Adults (1 - 1-dose 75+ series) [facility] Start: 01-10-2027 DTaP/Tdap/Td vaccine (2 - Td or Tdap) DTaP/Tdap/Td vaccine (2 - Td or Tdap) [facility] Start: 01-10-2027 DTaP/Tdap/Td vaccine (2 - Td) DTaP/Tdap/Td vaccine (2 - Td) [facility] Work Phone: Start: 01-10-2027 DTaP/Tdap/Td Vaccine s (2 - Td or Tdap) DTaP/Tdap/Td Vaccines (2 - Td or Tdap) [facility] Start: 12-30-2024 Influenza vaccination Influenz a Vaccine (Season Ended) [facility] Start: 03-22-2024 Diabetes mellitus screening Diabetes Screening [facility] Start: 12-31-2023 COVID-19 Vaccine ( season) COVID-19 Vaccine ( season) [facility] Start: 12-31-2023 COVID-19 Vaccine ( season) COVID-19 Vaccine ( season) [facility] Start: 12-31-2023 COVID-19 Vaccine ( season) COVID-19 Vaccine ( season) [facility] Start: 12-31-2023 Influenza vaccination S [facility] Start: 01-30-2023 Bacteria identified in Urine by Culture Urine Culture [facility] Start: 01-30-2023 [facility] Start: 12-30-2022 COVID-19 Vaccine ( season) COVID-19 Vaccine ( season) [facility] Start: 2022 Pneumococcal 0-64 ye ars Vaccine (2 of 2 - PPSV23) Pneumococcal 0-64 years Vaccine (2 of 2 - PPSV23) [facility] Start: 2022 Pneumococcal 0-64 ye ars Vaccine (2 of 2) Pneumococcal 0-64 years Vaccine (2 of 2) [facility] Work Phone: Start: 2022 Pneumococcal Vaccine : 65+ Years (2 of 2 - PCV) Pneumococcal Vaccine: 65+ Years (2 of 2 - PCV) [facility] Start: 12-30-2021 Influenza vaccination Influenza Vacc ine (#1) [facility] Start: 12-30-2020 Influenza vaccination S [facility] Start: 12-31-2019 Influenza vaccination Flu vaccine (# 1) [facility] Work Phone: Start: 08-18-2019 A1C test (Diabetic o r Prediabetic) A1C test (Diabetic or Prediabetic) [facility] Work Phone: Start: 08-18-2019 HbA1c (Bld) [Mass fraction] A1C test (Diabetic or Prediabetic) [facility] Work Phone: Start: 08-18-2019 Hemoglobin A1c measurement A1C test (Diabetic or Prediabetic) [facility] Start: 05-22-2019 End: 05-22-2019 Appointment Appointment [facility] Work Phone: Start: 02-07-2019 Lipid panel Lipid screen [facility] Start: 02-07-2019 Lipid screen Lipid screen [facility] Work Phone: Start: 12-30-2018 Influenza vaccination Flu vaccine (# 1) [facility] Work Phone: Start: 01-10-2018 Pneumococcal Vaccine : 50+ Years (2 of 2 - PCV) Pneumococcal Vaccine: 50+ Years (2 of 2 - PCV) [facility] Start: 01-10-2018 Pneumococcal Vaccine : 65+ Years (2 - PCV) Pneumococcal Vaccine: 65+ Years (2 - PCV) [facility] Start: 2017 RSV Immunization age d 60 or older (1 - 1-dose 60+ series) RSV Immunization aged 60 or older (1 - 1-dose 60+ series) [facility] Start: 2007 Colon cancer screen colonoscopy Colon cancer screen colonoscopy [facility] Work Phone: Start: 2007 Screening for malign ant neoplasm of colon Colon cancer screen colonoscopy [facility] Work Phone: Start: 2007 Shingles Vaccine (1 of 2) Shingles Vaccine (1 of 2) [facility] Start: 2007 Zoster Vaccines (1 o f 2) Zoster Vaccines (1 of 2) [facility] Start: 2002 Screening for malign ant neoplasm of colon Colon cancer screen colonoscopy [facility] Start: 1976 Hepatitis A Vaccines (1 of 2 - Risk 2-dose series) Hepatitis A Vaccines (1 of 2 - Risk 2-dose series) [facility] Start: 1975 Hepatitis C screening Hepatitis C Sc reening [facility] Start: 1969 COVID-19 Vaccine (1) COVID-19 Vaccin e (1) [facility] Start: 1969 Depression Monitoring Depression Mon [facility] Start: 1969 Depression Screen Depression Screen [facility] Start: 1962 COVID-19 Vaccine (1) COVID-19 Vaccin e (1) [facility] Start: 1957 COVID-19 Vaccine (#1) COVID-19 Vacci ne (#1) [facility] Start: 1955 Annual wellness visit Medicare Initial Physical (IPPE) [facility] Start: 1957 Hepatitis B Vaccines (1 of 3 - 3-dose series) Hepatitis B Vaccines (1 of 3 - 3-dose series) [facility] Start: 1957 Lipid panel Lipid Panel [facility] Start: 1957 Screening for malign ant neoplasm of colon [facility] Basic metabolic 2000 panel - Serum or Plasma Basic Metabolic Panel Lab Routine Daily until discontinued starting 03/23/2021, 2 completed [facility] Work Phone: Comment on above: Daily until disconti nued starting 03/23/2021, 2 completed CBC W Auto Different ial panel - Blood CBC Auto Differential Lab Routine Daily until discontinued starting 03/23/2021, 2 completed [facility] Work Phone: Comment on above: Daily until disconti nued starting 03/23/2021, 2 completed End: 06-24-2024 CT Chest WO contrast [facility] Work Phone: Comment on above: Once for 1 Occurrenc es starting 06/24/2024 until 06/24/2024 Culture, Blood 2 Culture, Blood 2 Microbiology STAT 03/19/2021 6:26 PM EST [facility] Work Phone: End: 03-20-2021 Culture, Respiratory Culture, Respiratory Microbiology Routine One Time for 1 Occurrences starting 03/20/2021 until 03/20/2021 [facility] Work Phone: Comment on above: One Time for 1 Occur rences starting 03/20/2021 until 03/20/2021 EKG 12 Lead EKG 12 Lead ECG STAT 03/18/2021 3:20 PM EST [facility] Work Phone: Feeding Tube Feeding Tube Pro cedures Routine 10/30/2020 2:22 PM EDT [facility] Work Phone: End: 09-22-2020 FL WATER SOLUBLE ENEMA W OR WO KUB FL WATER SOLUBLE ENEMA W OR WO KUB Imaging STAT Once for 1 Occurrences starting 09/22/2020 until 09/22/2020 [facility] Phone: Comment on above: Once for 1 Occurrenc es starting 09/22/2020 until 09/22/2020 End: 03-23-2021 Glucose [Mass/volume] in Serum or Plasma POCT GLUCOSE Point of Care Testing Routine Now Then Every 6hr for 7 Occurrences starting 03/21/2021 until 03/23/2021 [facility] Work Phone: Comment on above: Now Then [...] for 1 Occurrences starting 03/20/2021 until 03/20/2021 [facility] Work Phone: Comment on above: One Time for 1 Occur rences starting 03/20/2021 until 03/20/2021 Microscopic examinat ion of blood, culture Culture, Blood Microbiology STAT 03/19/2021 6:26 PM EST [facility] Work Phone: End: 03-20-2021 Microscopic observation [Identifier] in Unspecified specimen by Gram stain Gram Stain Microbiology Routine Once for 1 Occurrences starting 03/20/2021 until 03/20/2021 [facility] Work Phone: Comment on above: Once for 1 Occurrenc es starting 03/20/2021 until 03/20/2021 Oxygen therapy [[facility] Data Set] Initiate Oxygen Therapy Protocol Respiratory Care Routine Daily until discontinued starting 03/20/2021 [facility] Work Phone: Comment on above: Daily until disconti nued starting 03/20/2021 Patient Education \cps-sql1\CPS_ PtEducati on\CDC_FALL_PREVENTION. pdf, \cps-sql1\CPS_PtEducati on\quitting_smoking_032 [id number].pdf [facility] Work Phone: RT Communication Order RT Commun ication Order Respiratory Care STAT Daily until discontinued starting 03/18/2021 [facility] Work Phone: Comment on above: Daily until disconti nued starting 03/18/2021 RT Communication Order RT Commun ication Order Respiratory Care Routine Daily until discontinued starting 03/20/2021 [facility] Work Phone: Comment on above: Daily until disconti nued starting 03/20/2021 End: 03-20-2021 STREP PNEUMONIAE ANTIGEN STREP PNEUMONIAE ANTIGEN Microbiology Routine One Time for 1 Occurrences starting 03/20/2021 until 03/20/2021 [facility] Work Phone: Comment on above: One Time for 1 Occur rences starting 03/20/2021 until 03/20/2021 End: 03-18-2021 Urinalysis Urinalysis Lab STAT One Time for 1 Occurrences starting 03/18/2021 until 03/18/2021 [facility] Work Phone: Comment on above: One Time for 1 Occur rences starting 03/18/2021 until 03/18/2021 End: 03-18-2021 Urine Drug Screen Urine Drug Screen Lab STAT One Time for 1 Occurrences starting 03/18/2021 until 03/18/2021 [facility] Work Phone: Comment on above: One Time for 1 Occur rences starting 03/18/2021 until 03/18/2021 End: 09-22-2020 XR ABDOMEN (KUB) (SINGLE AP VIEW) XR ABDOMEN (KUB) (SINGLE AP VIEW) Imaging Routine Once for 1 Occurrences starting 09/22/2020 until 09/22/2020 [facility] Work Phone: Comment on above: Once for 1 Occurrenc es starting 09/22/2020 until 09/22/2020 Immunizations Immunization Date Immunization Notes Care Provider Fa [facility] 02-02-2021 influenza virus vacc ine, unspecified formulation Rashaad Smith [employer] - [employer] Work Phone: [facility] 01-10-2017 pneumococcal polysaccharide vaccine, 23 valent Elizabeth Moura MD Work Phone: [facility] 01-10-2017 tetanus toxoid, redu delia diphtheria toxoid, and acellular pertussis vaccine, adsorbed Elizabeth Moura MD Work Phone: [facility] Work Phone: Payers Date Payer Category Payer Self-pay [id number] 2019 Medicaid [id number] 2019 Medicaid [id number]. [id number] 2018 Private Health Insurance [id number]. [id number] 2018 Private Health Insurance [facility] xxxxxxxxx 2018-Present [phone] [address] [place] [address] xxxxxxxxx [id number]. [id number] 1955 Unknown [id number] 2.840.1.773870.3.579.2. 668 1957 Unknown [id number] 2.840.1.499533.3.579.2. 668 Private Health Insurance Unknown [id number] 2.840.1.949111.3.579.2. 462 Unknown [id number] 2.840.1.730765.3.579.2. 462 Unknown [id number] 2.840.1.735024.3.579.2. 462 Unknown [id number] 2.840.1.581612.3.579.2. 462 Unknown [id number] .840.1.088716.3.579.2. 462 Unknown [id number] 2.840.1.628134.3.579.2. 462 Unknown [id number] 2.16840.1.039277.3.579.2. 462 Unknown [id number] 2.16840.1.101762.3.579.2. 462 Unknown [id number] 2.840.1.972821.3.579.2. 462 Unknown [id number] 2.840.1.331578.3.579.2. 462 Unknown [id number] 2.840.1.438808.3.579.2. 462 Unknown [id number] 2.16.840.1.601708.3.579.2. 462 Unknown [id number] 2.16.840.1.943443.3.579.2. 462 Unknown [id number] 2.16.840.1.221763.3.579.2. 462 Unknown [id number] 2.16.840.1.997730.3.579.2. 462 Unknown [id number] 2.16.840.1.885681.3.579.2. 462 Unknown [id number] 2.16.840.1.986678.3.579.2. 462 Unknown [id number] 2.840.1.252224.3.579.2. 462 Unknown [id number] 2.840.1.510172.3.579.2. 462 Unknown [id number] 2.840.1.419393.3.579.2. 462 Unknown [id number] 2.840.1.570941.3.579.2. 462 Unknown [id number] 2.16.840.1.033961.3.579.2. 462 Unknown [id number] 2.16840.1.820918.3.579.2. 462 Unknown [id number] 2.16840.1.411907.3.579.2. 462 Unknown [id number] 2.840.1.676366.3.579.2. 462 Unknown [id number] 2.16.840.1.270251.3.579.2. 462 Unknown [id number] 2.16.840.1.071511.3.579.2. 462 Unknown [id number] 2.16.840.1.306268.3.579.2. 462 Unknown [id number] 2.16.840.1.369704.3.579.2. 462 Unknown [id number] 2.16.840.1.229668.3.579.2. 462 Unknown [id number] 2.16.840.1.695418.3.579.2. 462 Unknown [id number] 2.16840.1.707277.3.579.2. 462 Unknown [id number] 2.16840.1.863064.3.579.2. 462 Unknown [id number] 2.840.1.265751.3.579.2. 462 Unknown [id number] 2.840.1.797334.3.579.2. 462 Unknown [id number] 2.840.1.119719.3.579.2. 462 Unknown [id number] 2.840.1.122737.3.579.2. 462 Unknown [id number] 2.840.1.695545.3.579.2. 462 Unknown [id number] 2.840.1.170859.3.579.2. 462 Unknown [id number] 2.840.1.282032.3.579.2. 462 Unknown [id number] 2.840.1.257416.3.579.2. 462 Unknown [id number] 2.840.1.184377.3.579.2. 462 Unknown [id number] 2.840.1.891070.3.579.2. 462 Unknown [id number] .840.1.786606.3.579.2. 462 Unknown [id number] 2.840.1.036281.3.579.2. 462 Unknown [id number] 2.840.1.329530.3.579.2. 462 Unknown [id number] 2.840.1.987657.3.579.2. 462 Unknown [id number] 2.840.1.509746.3.579.2. 462 Unknown [id number] 2.16.840.1.772072.3.579.2. 462 Unknown [id number] 2.16.840.1.678074.3.579.2. 462 Unknown [id number] 2.16.840.1.994640.3.579.2. 462 Unknown [id number] 2.16.840.1.373147.3.579.2. 462 Unknown [id number] 2.16.840.1.101401.3.579.2. 462 Unknown [id number] 2.16.840.1.672600.3.579.2. 462 Unknown [id number] 2.16.840.1.325469.3.579.2. 462 Unknown [id number] 2.16.840.1.823120.3.579.2. 462 Unknown [id number] 2.16.840.1.241727.3.579.2. 462 Unknown [id number] 2.16.840.1.588065.3.579.2. 462 Unknown [id number] 2.16.840.1.968892.3.579.2. 462 Social History Date Type Detail Facility Tobacco smoking status MIIS Unknown if ever smoked [facility] Work Phone: Start: 1955 Sex Assigned At Not on file [facility] Work Phone: Start: 11-05-2018 End: 06-26-2020 Tobacco smoking status NHIS Former smoker [facility] Phone: End: 02-06-2016 History of tobacco use Current smoker [facility] Phone: End: 02-06-2016 History of tobacco use Cigar Smoker [facility] Phone: Start: 02-05-2018 End: 06-26-2020 Tobacco use and exposure Never used [employer] Phone: Start: 06-26-2020 End: 05-20-2022 Alcohol intake Current drinker of alcohol (finding) [facility] Work Phone: Start: 07-08-2018 Alcohol Comment 2 times per wo rk, occasionally liquor [facility] Work Phone: Start: 05-10-2022 End: 05-20-2022 Exposure to SARS-CoV-2 (event) Not sure [facility] Work Phone: Start: 09-22-2020 End: 05-20-2022 Alcohol intake [facility] Start: 1955 Sex Assigned At Male [facility] End: 02-06-2016 History of tobacco use Cigarette Smoker [facility] Start: 05-20-2022 End: 10-02-2023 Tobacco use panel [facility] How often to you have a drink containing alcohol? Never [facility] How many standard drinks containing alcohol do you have on a typical day? Patient does not drink [facility] Start: 11-29-2021 End: 08-16-2024 Sex Male (finding) [facility] Tobacco smoking status NHIS Unknown if ever smoked [facility] Work Phone: NEGATED: Highlighted rowStart: 05-22-2019 End: 05-22-2019 Alcohol use Alcohol use [facility] Work Phone: NEGATED: Highlighted rowStart: 05-22-2019 End: 05-22-2019 Assertion Current some day smoker [facility] Work Phone: NEGATED: Highlighted rowStart: 05-22-2019 End: 05-22-2019 Details of drug misuse behavior Details of drug misuse behavior [facility] Work Phone: NEGATED: Highlighted rowStart: 05-22-2019 End: 05-22-2019 Tobacco use and exposure Tobacco use and exposure [facility] Work Phone: Clinical Notes 03-18-2021 to 05-03-2024 [...] to fax the information to the office. [phone] [facility] 05-03-2024 Miscellaneous Notes Gissel is calling to let Dr. Burgos know that the medication he prescribed he not certified, she is going to fax the information to the office. [phone] documented in this encounter [facility] 11-22-2023 History of Presen t illness Narrative Images from the original note were not included. Speech-Language Pathology SPEECH LANGUAGE PATHOLOGY [facility] Modified Barium Swallow Study [...] despite effort. 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 Frequency: Per treating LEAD TECHNOLOGIST IN CYTOGENETICS Barriers: large osteophytes, bridging with anterior projection [...] Prior MBSS?: No, unable to locate in [facility] Current Diet: Puree diet with ?liquid (no information from [facility]Perez) Textures tested: - thin liquid, (cup edge) - mildly thick liquid, (cup edge) - puree, (teaspoon) Patient position: lateral Past Medical History: Past Medical History: Diagnosis Date TREVER (acute kidney injury) ([facility]) ([facility]) Alcohol abuse 07/08/2018 Anxiety C1 spinal cord injury ([facility]) ([facility]) Depression Fall 06/2018 Schizophrenia ([facility]) Past Surgical History: Past Surgical History: Procedure Laterality Date CERVICAL FUSION 07/09/2014 C2-6 cervical fusion GASTROSTOMY TUBE PLACEMENT 07/13/2018 TRACHEOSTOMY 07/13/2018 Admission Diagnosis: Patient Active Problem List Diagnosis Date Noted Respiratory syncytial virus (RSV) 03/22/2021 Hypoxia 03/19/2021 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[facility]) ([facility]) 08/16/2018 Chronic latent schizophrenia ([facility]) 08/15/2018 Prolonged Q-T interval on ECG 08/15/2018 Abdominal wall abscess 08/15/2018 Central cord syndrome ([facility]) ([facility]) 08/15/2018 Respiratory failure after trauma ([facility]) 08/15/2018 Pressure ulcer of sacral region, stage 2 ([facility]) 08/09/2018 Urinary retention 07/28/2018 Acute respiratory failure with hypoxia ([facility]) 07/26/2018 Mild bibasilar atelectasis 07/26/2018 Hospital-acquired pneumonia 07/26/2018 Bilateral pleural effusion 07/26/2018 Ileus ([facility]) ([facility]) 07/23/2018 TREVER (acute kidney injury) ([facility]) 07/23/2018 Hypokalemia 07/21/2018 Vertebral artery occlusion, bilateral 07/11/2018 Vitamin D insufficiency 07/10/2018 Alcohol abuse 07/08/2018 Closed wedge compression fracture of first thoracic vertebra ([facility]) 07/08/2018 Traumatic nondisp spondylolisthesis of C3 vertebra with closed fx, initial encounter ([facility]) 07/08/2018 Closed fracture dislocation of cervical spine ([facility]) 07/08/2018 Pain: Pt denies any current pain. Reason for current admission: Pt with h/o of PEG and trach from 2019. Pt is currently decannulated. H/o [employer] cervical fusion C2-C6. Noted very large connective [...] able to eat by mouth. Therapy Time LEAD TECHNOLOGIST IN CYTOGENETICS Individual Minutes Time In: 1150 Time Out: 1215 Minutes: 25 ZACHARY Sun documented in this encounter [facility] 10-02-2023 Emergency department Note [facility] at bedside at this time Mami Lantigua RN 10/02/23 1427 [facility] 10-02-2023 Emergency department Note [facility] at bedside at this time Mami Lantigua RN 10/02/23 1427 This RN gave report to Marnie at [facility] at this time Mami Lantigua RN 10/02/23 1358 This RN went to evaluate patient, was on 2L o2 and does not wear at baseline, plan is dc, this RN turned o2 off to trial patient, spo2 monitor on Mami Lantigua RN 10/02/[address] cart Eloisa Alfaro RN 10/02/23 1048 Emergency Department Encounter [facility] ED Patient: Kathya Hooper : [...] are mis-transcribed.) Fei Farooq MD Acute Care [facility] Fei Farooq MD 10/02/23 9357 Pt was brought in via [facility] from [facility] for Left sided facial droop. Per EMS nurse is new and does not know patient very well but he is A&O x 2 at baseline. Per EMS the nurse states it was 20 mins ago. Contacted nurse that was caring for him and she states that was the first time she has seen him for that day, shift production associate did not report any problems. EMS states [...] schizophrenia. BS 131. documented in this encounter [facility] 10-02-2023 Emergency department Note This RN gave report to Marnie at [facility] at this time Mami Lantigua RN 10/02/23 4150 [facility] 10-02-2023 Emergency department Note This RN went to evaluate patient, was on 2L o2 and does not wear at baseline, plan is dc, this RN turned o2 off to trial patient, spo2 monitor on Mami Lantigua RN 10/02/23 1325 [facility] 10-02-2023 Emergency department Note Pt to ct via cart Eloisa Alfaro RN 10/02/23 1043 [facility] 10-02-2023 Emergency department Triage note Pt was brought in via [facility] from [facility] for Left sided facial droop. Per EMS nurse is new and does not know patient very well but he is A&O x 2 at baseline. Per EMS the nurse states it was 20 mins ago. Contacted nurse that was caring for him and she states that was the first time she has seen him for that day, shift production associate did not report any problems. EMS states [...] the facility. Hx of schizophrenia. BS 131. [facility] 10-02-2023 Physician Emergency department Note Emergency Department Encounter [facility] ED Patient: Kathya Hooper : [...] are mis-transcribed.) Fei Farooq MD Acute Care [facility] Fei Farooq MD 10/02/23 1129 [facility] Work Phone: 05-20-2022 Emergency department Note Report called to residential. Copy of Xray report sent with discharge packet Gary Ghosh RN 05/20/222007 [facility] 05-20-2022 Emergency department Note Report called to residential. Copy of Xray report sent with discharge packet Gary Ghosh RN 05/20/222007 Emergency Department Encounter [facility] ED Patient: Kathya Hooper : 1955 Date of Evaluation: 05/20/2022 ED Supervising Physician: Abelardo Rios DO I independently examined and evaluated Kathya Hooper. This will serve as my Supervisory note as the candle molder machine of record and shared attestation. I did perform a substantive portion of the visit including all aspects of the Medical Decision Making. I wore appropriate PPE for the entirety of this encounter. In brief, Kathya Hooper is a 67 y.o. male that presents to the emergency department after his G-tube fell out today at the residential. Upon inspection of the G-tube, it appears [...] tube which fell out today at the residential. Tube was easily replaced in the emergency room. Will order KUB with dye study to confirm placement and discharge back to the residential. X-ray confirms due to position within the [...] [facility] [employer] Abelardo Rios DO 05/20/222014 documented in this encounter [facility] 05-20-2022 Miscellaneous Notes Associated Order(s): Feeding Tube Replacement Procedure Feeding Tube Replacement Performed by: Dejah Hazel DO Authorized by: Abelardo Rios DO Consent: Consent obtained: Verbal Consent given by: Patient [place] protocol: Patient identity confirmed: Verbally with patient [...] DO Resident 05/20/221931 documented in this encounter [facility] 05-20-2022 Note Associated Order(s): Feeding Tube Replacement Procedure Feeding Tube Replacement Performed by: Dejah Hazel DO Authorized by: Abelardo Rios DO Consent: Consent obtained: Verbal Consent given by: Patient [place] protocol: Patient identity confirmed: Verbally with patient [...] immediate complications Dejah Hazel DO Resident 05/20/221931 [facility] Phone: 05-20-2022 Note Associated Order(s): Feeding Tube Replacement Procedure Feeding Tube Replacement Performed by: Dejah Hazel DO Authorized by: Abelardo Rios DO Consent: Consent obtained: Verbal Consent given by: Patient [place] protocol: Patient identity confirmed: Verbally with patient [...] immediate complications Dejah Hazel DO Resident 05/20/221931 [facility] Phone: 05-20-2022 Physician Emergency department Note Emergency Department Encounter [facility] ED Patient: Kathya Hooper : 1955 Date of Evaluation: 05/20/2022 ED Supervising Physician: Abelardo Rios DO I independently examined and evaluated Kathya Hooper. This will serve as my Supervisory note as the candle molder machine of record and shared attestation. I did perform a substantive portion of the visit including all aspects of the Medical Decision Making. I wore appropriate PPE for the entirety of this encounter. In brief, Kathya Hooper is a 67 y.o. male that presents to the emergency department after his G-tube fell out today at the residential. Upon inspection of the G-tube, it appears [...] tube which fell out today at the residential. Tube was easily replaced in the emergency room. Will order KUB with dye study to confirm placement and discharge back to the residential. X-ray confirms due to position within the [...] [employer] Abelardo Rios DO 05/20/222014 SHERPA assistant Phone: 03-24-2021 Note Hospitalist Discharg e Summary [...] Pneumonia. Treated with antibiotics. He resides in COUNTS [facility] 234 BEDS AT THE [facility]. He was stablized and discharged Diet NPO [...] Tomography ACCESSION EXAM DATE/TIME PROCEDURE ORDERING PROVIDER [id number] 03/18/2021 16:26 EST CTA Head/Neck w/ + w/o [id number] alyson ARCHIBALD CPT code 81942 08825 Q9967 Reason For Exam (CTA Head/Neck w/ + w/o contrast) AMS, dysphasia and ?aphasia possibly since yesterday- very poor historian from residential w/ unclear prior deficits - here w/ [...] airway at the (more content not included)... [facility] 03-24-2021 Hospital course Narrative Hospitalist Discharge [...] Pneumonia. Treated with antibiotics. He resides in COUNTS INCLUDE 234 BEDS AT THE [facility]. He was stablized and discharged Diet NPO [...] Tomography ACCESSION EXAM DATE/TIME PROCEDURE ORDERING PROVIDER [id number] 03/18/2021 16:26 EST CTA Head/Neck w/ + w/o [id number] alyson ARCHIBALD CPT code 62234 34331 Q9967 Reason For Exam (CTA Head/Neck w/ + w/o contrast) AMS, dysphasia and ?aphasia possibly since yesterday- very poor historian from residential w/ unclear prior deficits - here w/ [...] Tomography ACCESSION EXAM DATE/TIME PROCEDURE ORDERING PROVIDER [id number] 03/18/2021 16:27 EST CTA Chest w/ + w/o [id number] -CASTROAlyson TIM CPT code 58443 Q9967 Reason For Exam (CTA Chest w/ + w/o Contrast) pulmonary embolus Report CTA chest with and without contrast History: chest pain Protocol: 1 mm images after IV contrast, 3D rendering performed by ak on a separate workstation No evidence of [...] Radiology ACCESSION EXAM DATE/TIME PROCEDURE ORDERING PROVIDER [id number] 03/19/2021 17:10 EST CR Chest Portable [id number] -BRADY DESAI CPT code 64568 Reason For Exam (CR Chest Portable) hypoxia [...] Result Date: 03/18/2021 [facility]: [id number] Diagnostic Radiology ACCESSION EXAM DATE/TIME PROCEDURE ORDERING PROVIDER [id number] 03/18/2021 15:30 EST CR Chest Portable [id number] -BOO CASTRO CPT code 58323 Reason For Exam (CR Chest Portable) sob, [...] Contact Information Primary Emergency Contact: Jason Hooper [facility] Relation: Parent Past Surgical History: Past Surgical History: Procedure Laterality Date CERVICAL FUSION 07/09/2014 C2-6 cervical fusion GASTROSTOMY TUBE PLACEMENT 07/13/2018 TRACHEOSTOMY 07/13/2018 Immunization History: Immunization History Administered Date(s) Administered Pneumococcal Polysaccharide ([id number]) 01/10/2017 Tdap (Boostrix, Adacel) 01/10/2017 Active Problems: Patient Active Problem List Diagnosis Code Closed fracture dislocation of cervical spine ([facility]) S12.9XXA Traumatic nondisp spondylolisthesis of C3 vertebra with closed fx, initial encounter ([facility]) S12.231A Closed wedge compression fracture of first thoracic vertebra ([facility]) S22.010A Central cord syndrome ([facility]) S14.129A Chronic latent schizophrenia ([facility]) F21 Alcohol abuse F10.10 Respiratory failure after trauma ([facility]) J96.90 Vitamin D insufficiency E55.9 Vertebral artery occlusion, 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 Hypokalemia E87.6 Ileus ([facility]) K56.7 TREVER (acute kidney injury) ([facility]) N17.9 Acute respiratory failure with hypoxia ([facility]) J96.01 Hospital-acquired pneumonia J18.9, Y95 Bilateral pleural effusion J90 Mild bibasilar atelectasis J98.11 Urinary retention R33.9 Prolonged Q-T interval on ECG R94.31 Pressure ulcer of sacral region, stage 2 ([facility]) L89.152 Abdominal wall abscess L02.211 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[facility]) K65.4 Hypoxia R09.02 Respiratory syncytial virus (RSV) [...] ESBL (Extended Spectrum Beta Lactamase) 08/20/18 08/20/18 Crsity Gupta RN 09/24/20 Evy Farris RN 08/15/18 [...] MENTAL STATUS:} IV Access: { CHRIS IV ACCESS:225646646} Nursing Mobility/ADLs: Walking {CHP DME ADLs:262039054} Transfer {CHP DME ADLs:335588733} Bathing {CHP DME ADLs:883327019} Dressing {CHP DME ADLs:625811466} Toileting {CHP DME ADLs:935458786} Feeding {CHP DME ADLs:842876479} Gis Instructor {P DME ADLs:292611231} Med Delivery { CHRIS MED Delivery:493023805} Wound Care Documentation and Therapy: Negative Pressure Wound Therapy Abdomen Left (Active) Number of days: 947 Wound Sacrum Mid (Active) Number of days: Elimination: Continence: Bowel: {YES / NO:} Bladder: {YES / NO:} Urinary Catheter: {Urinary Catheter:870138081} Colostomy/Ileostomy/Ileal Conduit: {YES / NO:47145} Date of Last BM: No intake or output data in the 24 hours ending 03/24/21 1013 I/O last 3 completed shifts: In: 660 [NG/GT:660] Out: - Safety Concerns: { CHRIS Safety Concerns:618349326} Impairments/Disabilities: { CHRIS Impairments/Disabilities:99018971 3} Nutrition Therapy: Current Nutrition Therapy: { CHRIS Diet List:154271256} Routes of Feeding: {[facility] DME Other Feedings:949283495} Liquids: {[facility] liquid thickness:75971} Daily Fluid Restriction: {CHP DME Yes amt example:760940240} Last Modified Barium Swallow with Video (Video Swallowing Test): {Done Not Done Date:} Treatments at the Time of Hospital Discharge: Respiratory Treatments: Oxygen Therapy: {Therapy; copd oxygen:23815} Ventilator: { CC Vent List:699387109} Rehab Therapies: {THERAPEUTIC INTERVENTION:8824182089} Weight Bearing Status/Restrictions: {[facility] Weight Bearin} Other Medical Equipment (for information only, NOT a DME order): {EQUIPMENT:557554855} Other Treatments: Patient's personal belongings (please select all that are sent with patient): {[facility] DME Belongings:750464059} RN SIGNATURE: {Esignature:551587926} CASE MANAGEMENT/SOCIAL WORK SECTION Inpatient Status Date: Readmission Risk Assessment Score: Readmission Risk Risk of Unplanned Readmission: 25 Discharging to Facility/ Agency Name: [facility] Address: [address] [place] [address] Dialysis Facility (if applicable) Name: Address: Dialysis Schedule: Phone: Fax: Molding Cutter/Mental Health Consultant signature: PHYSICIAN SECTION Prognosis: Good Condition at Discharge: Stable Rehab Potential (if transferring to Rehab): Good Recommended Labs or Other Treatments After Discharge: Physician Certification: I certify the above information and transfer of Kathya Hooper is necessary for the continuing treatment of the diagnosis listed and that he requires [facility] Facility for greater 30 days. Update Admission [...] loss Fluid Accumulation: No significant fluid accumulation Marketing Communication Manager Strength: Not Performed Estimated Daily Nutrient Needs: Energy (kcal): 4655-8095 (25-30 kcal/kg IBW); Weight Used for Energy Requirements: [place] (86.2 kg) Protein (g): 86-103 (1.0-1.2 g protein/kg IBW); Weight Used for Protein Requirements: [place] (86.2 kg) Fluid (ml/day): per . At [...] on 03/02/21, October weight= 185.5# on 01/29/21) [place] Body Weight: 190 lbs; % [place] Body Weight 97.8 % BMI: 24 Adjusted [...] Skin, Weight Discharge Planning: Enteral Nutrition Contact: *[phone] Images from the original note were not [...] from the original note were not included. [facility], Pulmonary Critical Care and Sleep Medicine [address] [place] [address] Patient - Kathya Hooper, Age - 66 y.o. - 1955 Room Number - [phone] Consulting - Rafa Michel MD Primary Care Physician - No primary care provider on file. [facility] - [id number] Date of Admission - 03/19/2021 3:52 PM [...] of bed. Pt thought there was a copy and print associate in the corner of his room. When pt got his meds he calmed down. Pt now watching tv. Call light within reach. Bed alarm on. Images from the original note were not included. [facility], Pulmonary Critical Care and Sleep Medicine [address] [place], [place] [id number] Patient - Kathya Hooper, Age - 66 y.o. - 1955 Room Number - [phone] Consulting - Rafa Michel MD Primary Care Physician - No primary care provider on file. [facility] # - [id number] Date of Admission - 03/19/2021 3:52 PM [...] Date 03/21/21 0000 - 03/21/21 2359 Shift [id number] [phone] 24 Hour Total INTAKE NG/GT(mL/kg) 542(6.4) 542(6.4) [...] included. Hospitalist Progress Note 03/21/2021 9:41 AM [phone]: Please page me for patient care issues. [phone]: Please page [facility] night Hospitalist for any issues. Subjective: Admit Date: 03/19/2021 PCP: No primary care provider on file. Room#: 465/465 Interval History: Lethargic, hard to arouse this [...] Trach PEG 07/13/2018. Presented from SNF to [facility] ED with worsening SOB. Evaluated in ED [...] loss Fluid Accumulation: No significant fluid accumulation Marketing Communication Manager Strength: Not Performed Estimated Daily Nutrient Needs: Energy (kcal): 8359-4295 (25-30 kcal/kg IBW); Weight Used for Energy Requirements: [place] (86.2 kg) Protein (g): 86-103 (1.0-1.2 g protein/kg IBW); Weight Used for Protein Requirements: [place] (86.2 kg) Fluid (ml/day): per MD. At facility receivin mL free water daily from EN and flushes; Method Used for Fluid Requirements: Other (Comment) Nutrition Related Findings: Massimo score= 15. No skin breakdown or edema noted. S/p Trach/PEG, per LEAD TECHNOLOGIST IN CYTOGENETICS note, does not take any food, drink [...] on 03/02/21, January weight= 185.5# on 01/29/21) [place] Body Weight: 190 lbs; % [place] Body Weight 97.8 % BMI: 23.9 BMI [...] Nutrition Contact: 2430 Speech Language Pathology Facility/Department: [facility] TELEMETRY CLINICAL BEDSIDE SWALLOW EVALUATION NAME: [...] states that she is the only family [phone] Images from the original note were not included. Hospitalist Progress Note 03/20/2021 9:58 AM [phone]: Please page me for patient care issues. [phone]: Please page [facility] night Hospitalist for any issues. Subjective: Admit Date: 03/19/2021 PCP: No primary care provider on file. Room#: [phone]/[phone] Interval History: He continues to have cough [...] 03/18/2021 Mr. Hooper was seen at the [place] emergency department for low oxygen levels. Patient [...] cannot be sent through Care Everywhere.Viral Infections (Slovenian)documented in this encounter [facility] Work Phone: Evaluation note Diagnosis PEG tube malfunction (HCC)- Primary Mechanical complication of gastrostomy documented in this encounter [facility] Work Phone: Evaluation note* Diagnosis Feeding tube dysfunction, initial encounter- Primary documented in this encounter [facility] Work Phone: Evaluation note* Diagnosis Respiratory syncytial virus (RSV)- Primary Hypoxia Hypoxemia documented in this encounter [facility] Work Phone: Evaluation note* Diagnosis Respiratory syncytial virus (RSV)- Primary Hypoxia Hypoxemia documented in this encounter [facility] Work Phone: Evaluation note* Diagnosis PEG tube malfunction (HCC)- Primary Mechanical complication of gastrostomy documented in this encounter [facility] Work Phone: Evaluation note* Diagnosis Contusion of right hip, initial encounter- Primary documented in this encounter [facility] Work Phone: Evaluation noteNo assessment information available [facility] Work Phone: Evaluation note* Diagnosis Dyspnea, unspecified type- Primary [facility] Diagnosis Dysphagia, oropharyngeal phase Feeding difficulties Feeding difficulties and mismanagement [facility]* Diagnosis Dysphagia, oropharyngeal phase- Primary Feeding difficulties Feeding difficulties and mismanagement Dysphagia, oropharyngeal phase Feeding difficulties Feeding difficulties and mismanagement [facility]* Diagnosis Dislodged gastrostomy tube- Primary documented in this encounter [facility] note* Diagnosis Chronic cough Cough documented in this encounter [facility] note* Diagnosis Chronic cough- Primary Cough Chronic cough Cough [facility]* Attachments The following attachments cannot be sent through Care Everywhere. * PEG (Percutaneous Endoscopic Gastrostomy): Post-op (Slovenian) documented in this [facility] Work Phone: Hospital Discharge instructions* Attachments The following attachments cannot be sent through Care Everywhere. * Feeding Tube: General Info (Slovenian) documented in this [facility] Work Phone: Hospital Discharge instructions* Instructions* Mary Cochran PA-C - 05/15/2021 Please return to the ED if you have any new or worsening symptoms. documented in this [facility] Work Phone: Hospital Discharge instructions* Attachments The following attachments cannot be sent through Care Everywhere. * Hip Pain (Slovenian) * Contusion (Slovenian) documented in this [facility] Work Phone: Hospital Discharge instructions* Attachments The following attachments cannot be sent through Care Everywhere. * Shortness of Breath (Dyspnea) Discharge Instructions (Slovenian) documented in this [facility] Discharge instructions* Attachments The following attachments cannot be sent through Care Everywhere. * How to Care for Your Gastrostomy Tube (Slovenian) [facility])No reason for referral information availableWMercer [facility] Work Phone: Reason for visit Narrative* Imaging (Routine) - Closed Specialty Diagnoses / Procedures Referred By Contlang t Referred To Contact Radiology Diagnoses Chronic cough Procedures CT chest wo IV contrast Rashaad Smith APRN - SIM [id number] [address] Phone: tel: fax: Referral ID Status Reason Start Date Expiration Date Visits Re quested Visits Authorized [id number] Closed 06/12/2024 06/12/2025 1 1 [facility] Summary Purpose Family History No Family History Records FoundNo Family History Records FoundThere may be information available, but it has not been provided by the sender.No Family History Records FoundNo Family History Records FoundNo Family History Records FoundNo Family History Records Found Advance Directives No Advanced Directives Records FoundDocuments on File Type Date Recorded 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 ACP-Advance Directive ACP-Advance Directive 08/07/2018 1:53 PM ACP-Power of Parts Professional Latest Code Status on File Code Status Date Activated Date Inactivated Comments Full Code 08/15/2018 8:27 PM 08/22/2018 4:31 PM Full Code 08/15/2018 8:12 PM 08/15/2018 8:27 PM Full Code 07/08/2018 8:28 PM 08/01/2018 2:39 PM Documents on File Type Date Recorded 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 ACP-Advance Directive ACP-Power of Parts Professional ACP-Advance Directive 08/07/2018 1:53 PM Latest Code Status on File Code Status Date Activated Date Inactivated Comments Full Code 03/20/2021 12:17 AM Full Code 08/15/2018 8:27 PM 08/22/2018 4:31 PM Documents on File Type Date Recorded 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 ACP-Advance Directive ACP-Power of Parts Professional ACP-Advance Directive 03/26/2021 9:48 AM ACP-Advance Directive 08/07/2018 1:53 PM Latest Code Status on File Code Status Date Activated Date Inactivated Comments Full Code 03/20/2021 12:17 AM 03/24/2021 3:23 PM Documents on File Type Date Recorded 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 Advance Directives and Livin g Will Advance Directives and Livin g Will 08/07/2018 1:53 PM Power of Parts Professional Documents on File Type Date Recorded 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 * Feeding Tube: General Info (Slovenian) documented in this encounter Assessments Diagnosis PEG [...] Complaint and Reason for Visit Chief Complaint LONG-TERM LABWORK LONG-TERM LAB WORK LONG-TERM LABWORK LONG-TERM LABWORK LONG-TERM LABWORK LONG-TERM LAB WORK LONG-TERM LABWORK LONG-TERM LABWORK LONG-TERM LABWORK LONG-TERM LABWORK LONG-TERM LABWORK LONG-TERM LAB WORK LONG-TERM LABWORK NURING HOME LABWORK LONG-TERM LABWORK LONG-TERM LAB WORK LONG-TERM LABWORK Chief Complaint LONG-TERM LABWORK LONG-TERM LABWORK LONG-TERM LABWORK LONG-TERM LAB WORK LONG-TERM LABWORK NURING HOME LABWORK LONG-TERM LABWORK LONG-TERM LAB WORK LONG-TERM LABWORK LONG-TERM LABWORK LONG-TERM LAB WORK LONG-TERM LAB WORK LONG-TERM BLOOD WORK LONG-TERM LABWORK LONG-TERM LAB WORK Chief Complaint LONG-TERM LABWORK LONG-TERM LABWORK LONG-TERM LAB WORK LONG-TERM LABWORK NURING HOME LABWORK LONG-TERM LABWORK LONG-TERM LAB WORK LONG-TERM LABWORK LONG-TERM LABWORK LONG-TERM LAB WORK LONG-TERM LAB WORK LONG-TERM BLOOD WORK LONG-TERM LABWORK LABWORK LABWORK LONG-TERM LAB WORK Chief Complaint LONG-TERM LABWORK LONG-TERM LAB WORK LONG-TERM LABWORK NURING HOME LABWORK LONG-TERM LABWORK LONG-TERM LAB WORK LONG-TERM LABWORK LONG-TERM LABWORK LONG-TERM LAB WORK LONG-TERM LAB WORK LONG-TERM BLOOD WORK LONG-TERM LABWORK LABWORK LABWORK LONG-TERM LAB WORK Chief Complaint LONG-TERM LAB WOR K LONG-TERM LABWORK NURING HOME LABWORK LONG-TERM LABWORK LONG-TERM LAB WORK LONG-TERM LABWORK LONG-TERM LABWORK LONG-TERM LAB WORK LONG-TERM LAB WORK LONG-TERM BLOOD WORK LONG-TERM LABWORK LABWORK LABWORK LONG-TERM LAB WORK Chief Complaint LONG-TERM LAB WOR K LONG-TERM LABWORK NURING HOME LABWORK LONG-TERM LABWORK LONG-TERM LAB WORK LONG-TERM LABWORK LONG-TERM LABWORK LONG-TERM LAB WORK LONG-TERM LAB WORK LONG-TERM BLOOD WORK LONG-TERM LABWORK LABWORK LABWORK LONG-TERM LAB WORK LABWORK LONG-TERM LABWORK Chief Complaint LONG-TERM LABWORK NURING HOME LABWORK LONG-TERM LABWORK LONG-TERM LAB WORK LONG-TERM LABWORK LONG-TERM LABWORK LONG-TERM LAB WORK LONG-TERM LAB WORK LONG-TERM BLOOD WORK LONG-TERM LABWORK LABWORK LABWORK LONG-TERM LAB WORK LABWORK LONG-TERM LABWORK LONG-TERM LAB WORK Chief Complaint LONG-TERM BLOOD W ORK LONG-TERM LABWORK LONG-TERM LABWORK LABWORK LABWORK LONG-TERM LAB WORK LABWORK LONG-TERM LABWORK LONG-TERM LAB WORK LABWORK LONG-TERM LAB WORK LONG-TERM LAB WORK LABWORK LONG-TERM LAB WORK Chief Complaint LONG-TERM BLOOD W ORK LONG-TERM LABWORK LONG-TERM LABWORK LABWORK LABWORK LONG-TERM LAB WORK LABWORK LONG-TERM LABWORK LONG-TERM LAB WORK LABWORK LONG-TERM LAB WORK LONG-TERM LAB WORK LABWORK LONG-TERM LAB WORK LABWORK Chief Complaint LABWORK LABWORK LONG-TERM LAB WORK LABWORK LONG-TERM LABWORK LONG-TERM LAB WORK LABWORK LONG-TERM LAB WORK LONG-TERM LAB WORK LABWORK LONG-TERM LAB WORK LABWORK LONG-TERM LAB WORK Chief Complaint LABWORK LONG-TERM LAB WORK LABWORK LONG-TERM LABWORK LONG-TERM LAB WORK LABWORK LONG-TERM LAB WORK LONG-TERM LAB WORK LABWORK LONG-TERM LAB WORK LABWORK LONG-TERM LAB WORK LONG-TERM LABWORK Chief Complaint LABWORK LONG-TERM LABWORK LONG-TERM LAB WORK LABWORK LONG-TERM LAB WORK LONG-TERM LAB WORK LABWORK LONG-TERM LAB WORK LABWORK LONG-TERM LAB WORK LONG-TERM LABWORK LONG-TERM LABWORK LABWORK LONG-TERM LAB WORK Chief Complaint LONG-TERM LAB WOR K LABWORK LONG-TERM LAB WORK LONG-TERM LAB WORK LABWORK LONG-TERM LAB WORK LABWORK LONG-TERM LAB WORK LONG-TERM LABWORK LONG-TERM LABWORK LABWORK LONG-TERM LAB WORK LONG-TERM LAB WORK Chief Complaint LONG-TERM LAB WOR K LONG-TERM LAB WORK LABWORK LONG-TERM LAB WORK LABWORK LONG-TERM LAB WORK LONG-TERM LABWORK LONG-TERM LABWORK LABWORK LONG-TERM LAB WORK LONG-TERM LAB WORK LABWORK LONG-TERM LAB WORK Chief Complaint LONG-TERM LAB WOR K LABWORK LONG-TERM LAB WORK LABWORK LONG-TERM LAB WORK LONG-TERM LABWORK LONG-TERM LABWORK LABWORK LONG-TERM LAB WORK LONG-TERM LAB WORK LABWORK LONG-TERM LAB WORK LONG-TERM LAB WORK Chief Complaint LONG-TERM LAB WOR K LABWORK LONG-TERM LAB WORK LONG-TERM LABWORK LONG-TERM LABWORK LABWORK LONG-TERM LAB WORK LONG-TERM LAB WORK LABWORK LONG-TERM LAB WORK LABWORK LONG-TERM LAB WORK LONG-TERM LAB WORK LONG-TERM LABWORK LONG-TERM LABWORK Chief Complaint LABWORK LONG-TERM LAB WORK LONG-TERM LABWORK LONG-TERM LABWORK LABWORK LONG-TERM LAB WORK LONG-TERM LAB WORK LABWORK LONG-TERM LAB WORK LABWORK LONG-TERM LAB WORK LONG-TERM LAB WORK LONG-TERM LABWORK LABWORK LONG-TERM LABWORK Chief Complaint LABWORK LONG-TERM LAB WORK LONG-TERM LAB WORK LABWORK LONG-TERM LAB WORK LABWORK LONG-TERM LAB WORK LONG-TERM LAB WORK LONG-TERM LABWORK LABWORK LONG-TERM LABWORK LONG-TERM LAB WORK Chief Complaint LONG-TERM LAB WOR K LABWORK LONG-TERM LAB WORK LONG-TERM LAB WORK LONG-TERM LABWORK LABWORK LONG-TERM LABWORK LONG-TERM LAB WORK LABWORK LABWORK LABWORK LABWORK LONG-TERM LABWORK LONG-TERM LAB WORK LABWORK LABWORK Chief Complaint LABWORK LONG-TERM LAB WORK LONG-TERM LAB WORK LONG-TERM LABWORK LABWORK LONG-TERM LABWORK LONG-TERM LAB WORK LABWORK LABWORK LABWORK LABWORK LONG-TERM LABWORK LONG-TERM LAB WORK LABWORK LABWORK LONG-TERM LABWORK Chief Complaint LONG-TERM LAB WOR K LONG-TERM LAB WORK LONG-TERM LABWORK LABWORK LONG-TERM LABWORK LONG-TERM LAB WORK LABWORK LABWORK LABWORK LABWORK LONG-TERM LABWORK LONG-TERM LAB WORK LABWORK LABWORK LONG-TERM LABWORK LONG-TERM LAB WORK Chief Complaint LONG-TERM LABWORK LABWORK LONG-TERM LABWORK LONG-TERM LAB WORK LABWORK LABWORK LABWORK LABWORK LONG-TERM LABWORK LONG-TERM LAB WORK LABWORK LABWORK LONG-TERM LABWORK LONG-TERM LAB WORK LONG-TERM LABWORK LONG-TERM LAB WORK Chief Complaint LABWORK LONG-TERM LABWORK LONG-TERM LAB WORK LABWORK LABWORK LABWORK LABWORK LONG-TERM LABWORK LONG-TERM LAB WORK LABWORK LABWORK LONG-TERM LABWORK LONG-TERM LAB WORK LONG-TERM LABWORK LABWORK LONG-TERM LAB WORK Chief Complaint LABWORK LABWORK LABWORK LABWORK LONG-TERM LABWORK LONG-TERM LAB WORK LABWORK LABWORK LONG-TERM LABWORK LONG-TERM LAB WORK LONG-TERM LABWORK LABWORK LONG-TERM LAB WORK LABWORK LONG-TERM LABWORK Chief Complaint LABWORK LONG-TERM LABWORK LONG-TERM LAB WORK LABWORK LABWORK LONG-TERM LABWORK LONG-TERM LAB WORK LONG-TERM LABWORK LABWORK LONG-TERM LAB WORK LABWORK LONG-TERM LABWORK LABWORK LABWORK Chief Complaint LONG-TERM LABWORK LONG-TERM LAB WORK LABWORK LABWORK LONG-TERM LABWORK LONG-TERM LAB WORK LONG-TERM LABWORK LABWORK LONG-TERM LAB WORK LABWORK LONG-TERM LABWORK LABWORK LABWORK LABWORK LONG-TERM LAB WORK LONG-TERM LAB WORK LONG-TERM LABWORK Chief Complaint LONG-TERM LABWORK LONG-TERM LAB WORK LABWORK LABWORK LONG-TERM LABWORK LONG-TERM LAB WORK LONG-TERM LABWORK LABWORK LONG-TERM LAB WORK LABWORK LONG-TERM LABWORK LABWORK LABWORK LABWORK LONG-TERM LAB WORK LONG-TERM LAB WORK LONG-TERM LABWORK LONG-TERM LABWORK Chief Complaint LABWORK LABWORK LONG-TERM LABWORK LONG-TERM LAB WORK LONG-TERM LABWORK LABWORK LONG-TERM LAB WORK LABWORK LONG-TERM LABWORK LABWORK LABWORK LABWORK LONG-TERM LAB WORK LONG-TERM LAB WORK LONG-TERM LABWORK LONG-TERM LABWORK LONG-TERM LAB WORK LABWORK Chief Complaint LONG-TERM LABWORK LONG-TERM LAB WORK LONG-TERM LABWORK LABWORK LONG-TERM LAB WORK LABWORK LONG-TERM LABWORK LABWORK LABWORK LABWORK LONG-TERM LAB WORK LONG-TERM LAB WORK LONG-TERM LABWORK LONG-TERM LABWORK LONG-TERM LAB WORK LABWORK LONG-TERM LABWORK Chief Complaint LONG-TERM LABWORK LABWORK LONG-TERM LAB WORK LABWORK LONG-TERM LABWORK LABWORK LABWORK LABWORK LONG-TERM LAB WORK LONG-TERM LAB WORK LONG-TERM LABWORK LONG-TERM LABWORK LONG-TERM LAB WORK LABWORK LONG-TERM LABWORK LONG-TERM LAB WORK Chief Complaint LABWORK LONG-TERM LABWORK LABWORK LABWORK LABWORK LONG-TERM LAB WORK LONG-TERM LAB WORK LONG-TERM LABWORK LONG-TERM LABWORK LONG-TERM LAB WORK LABWORK LONG-TERM LABWORK LONG-TERM LAB WORK LONG-TERM LABWORK LONG-TERM LAB WORK Chief Complaint LABWORK LONG-TERM LABWORK LONG-TERM LAB WORK LONG-TERM LABWORK LONG-TERM LAB WORK LONG-TERM LABWORK LONG-TERM LABWORK LONG-TERM LABWORK LONG-TERM LABWORK LONG-TERM LAB WORK LABWORK LABWORK LONG-TERM LABWORK Chief Complaint LONG-TERM LABWORK LONG-TERM LAB WORK LONG-TERM LABWORK LONG-TERM LABWORK LONG-TERM LABWORK LONG-TERM LABWORK LONG-TERM LAB WORK LABWORK LABWORK LONG-TERM LABWORK LABWORK LONG-TERM LAB WORK LONG-TERM LAB WORK Chief Complaint LONG-TERM LABWORK LONG-TERM LABWORK LONG-TERM LABWORK LONG-TERM LABWORK LONG-TERM LAB WORK LABWORK LABWORK LONG-TERM LABWORK LABWORK LONG-TERM LAB WORK LONG-TERM LAB WORK LONG-TERM LABWORK LONG-TERM LABWORK LONG-TERM LAB WORK LONG-TERM LAB WORK Chief Complaint LONG-TERM LABWORK LONG-TERM LABWORK LONG-TERM LABWORK LONG-TERM LAB WORK LABWORK LABWORK LONG-TERM LABWORK LABWORK LONG-TERM LAB WORK LONG-TERM LAB WORK LONG-TERM LABWORK LONG-TERM LABWORK LONG-TERM LAB WORK LONG-TERM LAB WORK Chief Complaint LONG-TERM LABWORK LONG-TERM LABWORK LONG-TERM LABWORK LONG-TERM LAB WORK LABWORK LABWORK LONG-TERM LABWORK LABWORK LONG-TERM LAB WORK LONG-TERM LAB WORK LONG-TERM LABWORK LONG-TERM LABWORK LONG-TERM LAB WORK LONG-TERM LAB WORK LONG-TERM LABWORK LABWORK Chief Complaint LONG-TERM LAB WOR K LABWORK LABWORK LONG-TERM LABWORK LABWORK LONG-TERM LAB WORK LONG-TERM LAB WORK LONG-TERM LABWORK LONG-TERM LABWORK LONG-TERM LAB WORK LONG-TERM LAB WORK LONG-TERM LABWORK LABWORK LONG-TERM LAB WORK LABWORK Chief Complaint LONG-TERM LAB WOR K LABWORK LABWORK LONG-TERM LABWORK LABWORK LONG-TERM LAB WORK LONG-TERM LAB WORK LONG-TERM LABWORK LONG-TERM LABWORK LONG-TERM LAB WORK LONG-TERM LAB WORK LONG-TERM LABWORK LABWORK LONG-TERM LAB WORK LABWORK LONG-TERM LABWORK LONG-TERM LAB WORK Chief Complaint LABWORK LABWORK LONG-TERM LABWORK LABWORK LONG-TERM LAB WORK LONG-TERM LAB WORK LONG-TERM LABWORK LONG-TERM LABWORK LONG-TERM LAB WORK LONG-TERM LAB WORK LONG-TERM LABWORK LABWORK LONG-TERM LAB WORK LABWORK LONG-TERM LABWORK LONG-TERM LAB WORK LABWORK\ Chief Complaint LABWORK LONG-TERM LABWORK LABWORK LONG-TERM LAB WORK LONG-TERM LAB WORK LONG-TERM LABWORK LONG-TERM LABWORK LONG-TERM LAB WORK LONG-TERM LAB WORK LONG-TERM LABWORK LABWORK LONG-TERM LAB WORK LABWORK LONG-TERM LABWORK LONG-TERM LAB WORK LABWORK\ LABWORK Chief Complaint LONG-TERM LAB WOR K LONG-TERM LAB WORK LONG-TERM LABWORK LONG-TERM LABWORK LONG-TERM LAB WORK LONG-TERM LAB WORK LONG-TERM LABWORK LABWORK LONG-TERM LAB WORK LABWORK LONG-TERM LABWORK LONG-TERM LAB WORK LABWORK\ LABWORK LONG-TERM LAB WORK LABWORK Chief Complaint LONG-TERM LAB WOR K LONG-TERM LABWORK LONG-TERM LABWORK LONG-TERM LAB WORK LONG-TERM LAB WORK LONG-TERM LABWORK LABWORK LONG-TERM LAB WORK LABWORK LONG-TERM LABWORK LONG-TERM LAB WORK LABWORK\ LABWORK LONG-TERM LAB WORK LABWORK LABWORK Chief Complaint LONG-TERM LABWORK LONG-TERM LABWORK LONG-TERM LAB WORK LONG-TERM LAB WORK LONG-TERM LABWORK LABWORK LONG-TERM LAB WORK LABWORK LONG-TERM LABWORK LONG-TERM LAB WORK LABWORK\ LABWORK LONG-TERM LAB WORK LABWORK LONG-TERM LABWORK LABWORK Chief Complaint LONG-TERM LAB WOR K LONG-TERM LABWORK LABWORK LONG-TERM LAB WORK LABWORK LONG-TERM LABWORK LONG-TERM LAB WORK LABWORK\ LABWORK LONG-TERM LAB WORK LABWORK LONG-TERM LABWORK LABWORK LONG-TERM LABWORK LONG-TERM LAB WORK LABWORK LONG-TERM LAB WORK Chief Complaint LONG-TERM LABWORK LABWORK LONG-TERM LAB WORK LABWORK LONG-TERM LABWORK LONG-TERM LAB WORK LABWORK\ LABWORK LONG-TERM LAB WORK LABWORK LONG-TERM LABWORK LABWORK LONG-TERM LABWORK LONG-TERM LAB WORK LABWORK LONG-TERM LAB WORK LABWORK Chief Complaint LONG-TERM LAB WOR K LABWORK LONG-TERM LABWORK LONG-TERM LAB WORK LABWORK\ LABWORK LONG-TERM LAB WORK LABWORK LONG-TERM LABWORK LABWORK LONG-TERM LABWORK LONG-TERM LAB WORK LABWORK LONG-TERM LAB WORK LABWORK LABWORK Chief Complaint LONG-TERM LAB WOR K LABWORK\ LABWORK LONG-TERM LAB WORK LABWORK LONG-TERM LABWORK LABWORK LONG-TERM LABWORK LONG-TERM LAB WORK LABWORK LONG-TERM LAB WORK LABWORK LABWORK LABWORK LABWORK LABWORK Chief Complaint LABWORK\ LABWORK LONG-TERM LAB WORK LABWORK LONG-TERM LABWORK LABWORK LONG-TERM LABWORK LONG-TERM LAB WORK LABWORK LONG-TERM LAB WORK LABWORK LABWORK LABWORK LABWORK LABWORK LABWORK Chief Complaint LONG-TERM LAB WOR K LABWORK LONG-TERM LABWORK LABWORK LONG-TERM LABWORK LONG-TERM LAB WORK LABWORK LONG-TERM LAB WORK LABWORK LABWORK LABWORK LABWORK LABWORK LABWORK LABWORK Chief Complaint LONG-TERM LABWORK LABWORK LONG-TERM LABWORK LONG-TERM LAB WORK LABWORK LONG-TERM LAB WORK LABWORK LABWORK LABWORK LABWORK LABWORK LABWORK LABWORK LONG-TERM LAB WORK LABWORK Chief Complaint LABWORK LONG-TERM LABWORK LONG-TERM LAB WORK LABWORK LONG-TERM LAB WORK LABWORK LABWORK LABWORK LABWORK LABWORK LABWORK LABWORK LONG-TERM LAB WORK LABWORK LABWORK LABWORK Chief Complaint LABWORK LONG-TERM LAB WORK LABWORK LABWORK LABWORK LABWORK LABWORK LABWORK LABWORK LONG-TERM LAB WORK LABWORK LABWORK LABWORK LONG-TERM LAB WORK LONG-TERM LAB WORK Chief Complaint LONG-TERM LAB WOR K LABWORK LABWORK LABWORK LABWORK LABWORK LABWORK LABWORK LONG-TERM LAB WORK LABWORK LABWORK LABWORK LONG-TERM LAB WORK LONG-TERM LAB WORK LABWORK Chief Complaint LONG-TERM LABWORK LONG-TERM LAB WORK LONG-TERM LAB WORK LONG-TERM LABWORK LABWORK LONG-TERM LAB WORK LABWORK LONG-TERM LABWORK LONG-TERM LAB WORK LABWORK\ LABWORK LONG-TERM LAB WORK LABWORK LONG-TERM LABWORK LABWORK LONG-TERM LABWORK Chief Complaint LONG-TERM LABWORK LONG-TERM LAB WORK LONG-TERM LAB WORK LONG-TERM LABWORK LABWORK LONG-TERM LAB WORK LABWORK LONG-TERM LABWORK LONG-TERM LAB WORK LABWORK\ LABWORK LONG-TERM LAB WORK LABWORK LONG-TERM LABWORK LABWORK LONG-TERM LABWORK LONG-TERM LAB WORK Chief Complaint Admit Date LONG-TERM LAB WORK March 11 5:00am LONG-TERM LAB WORK March 18 5:00am LABWORK March 25, 2024 5:00am LABWORK April 01, 2024 5 :00am LONG-TERM LAB WORK April 08, 2024 5:00am LABWORK April 15, 2024 5:00am LABWORK April 22, 2024 5:00am LONG-TERM LAB WORK April 29 5:00am LABWORK May 06, 2024 5: 00am LONG-TERM LAB WORK May 13, 2024 4:00am LABWORK May 20, 2024 5 :00am LONG-TERM LAB WORK May 27, 2024 5:00am LABWORK June 03, 2024 5 :00am LABWORK June 07, 2024 5 :00am LONG-TERM LAB WORK June 10 5:00am LABWORK June 17, 2024 5:00am LONG-TERM LAB WORK June 24 5:00am Chief Complaint Admit Date LABWORK April 01, 2024 5 :00am LONG-TERM LAB WORK April 08, 2024 5:00am LABWORK April 15, 2024 5:00am LABWORK April 22, 2024 5:00am LONG-TERM LAB WORK April 29 5:00am LABWORK May 06, 2024 5: 00am LONG-TERM LAB WORK May 13, 2024 4:00am LABWORK May 20, 2024 5 :00am LONG-TERM LAB WORK May 27, 2024 5:00am LABWORK June 03, 2024 5 :00am LABWORK June 07, 2024 5 :00am LONG-TERM LAB WORK June 10 5:00am LABWORK June 17, 2024 5:00am LONG-TERM LAB WORK June 24 5:00am LONG-TERM LAB WORK June 27 2:00am LONG-TERM LAB WORK July 01, 2024 4: 00am LABWORK July 08, 2024 5:0 0am LONG-TERM LAB WORK July 16, 2024 4 :00am Chief Complaint Admit Date LONG-TERM LAB WORK April 08, 2024 5:00am LABWORK April 15, 2024 5:00am LABWORK April 22, 2024 5:00am LONG-TERM LAB WORK April 29 5:00am LABWORK May 06, 2024 5: 00am LONG-TERM LAB WORK May 13, 2024 4:00am LABWORK May 20, 2024 5 :00am LONG-TERM LAB WORK May 27, 2024 5:00am LABWORK June 03, 2024 5 :00am LABWORK June 07, 2024 5 :00am LONG-TERM LAB WORK June 10 5:00am LABWORK June 17, 2024 5:00am LONG-TERM LAB WORK June 24 5:00am LONG-TERM LAB WORK June 27 2:00am LONG-TERM LAB WORK July 01, 2024 4: 00am LABWORK July 08, 2024 5:0 0am LONG-TERM LAB WORK July 15, 2024 5 :00am LONG-TERM LAB WORK July 16, 2024 4 :00am Chief Complaint Admit Date LABWORK April 15, 2024 5:00am LABWORK April 22, 2024 5:00am LONG-TERM LAB WORK April 29 5:00am LABWORK May 06, 2024 5: 00am LONG-TERM LAB WORK May 13, 2024 4:00am LABWORK May 20, 2024 5 :00am LONG-TERM LAB WORK May 27, 2024 5:00am LABWORK June 03, 2024 5 :00am LABWORK June 07, 2024 5 :00am LONG-TERM LAB WORK June 10 5:00am LABWORK June 17, 2024 5:00am LONG-TERM LAB WORK June 24 5:00am LONG-TERM LAB WORK June 27 2:00am LONG-TERM LAB WORK July 01, 2024 4: 00am LABWORK July 08, 2024 5:0 0am LONG-TERM LAB WORK July 15, 2024 5 :00am LONG-TERM LAB WORK July 16, 2024 4 :00am LONG-TERM LAB WORK July 22, 2024 5 :00am Chief Complaint Admit Date LABWORK April 22, 2024 5:00am LONG-TERM LAB WORK April 29 5:00am LABWORK May 06, 2024 5: 00am LONG-TERM LAB WORK May 13, 2024 4:00am LABWORK May 20, 2024 5 :00am LONG-TERM LAB WORK May 27, 2024 5:00am LABWORK June 03, 2024 5 :00am LABWORK June 07, 2024 5 :00am LONG-TERM LAB WORK June 10 5:00am LABWORK June 17, 2024 5:00am LONG-TERM LAB WORK June 24 5:00am LONG-TERM LAB WORK June 27 2:00am LONG-TERM LAB WORK July 01, 2024 4: 00am LABWORK July 08, 2024 5:0 0am LONG-TERM LAB WORK July 15, 2024 5 :00am LONG-TERM LAB WORK July 16, 2024 4 :00am LONG-TERM LAB WORK July 22, 2024 5 :00am LABWORK July 29, 2024 5:0 0am Chief Complaint Admit Date LONG-TERM LAB WORK May 13, 2024 4:00am LABWORK May 20, 2024 5 :00am LONG-TERM LAB WORK May 27, 2024 5:00am LABWORK June 03, 2024 5 :00am LABWORK June 07, 2024 5 :00am LONG-TERM LAB WORK June 10 5:00am LABWORK June 17, 2024 5:00am LONG-TERM LAB WORK June 24 5:00am LONG-TERM LAB WORK June 27 2:00am LONG-TERM LAB WORK July 01, 2024 4: 00am LABWORK July 08, 2024 5:0 0am LONG-TERM LAB WORK July 15, 2024 5 :00am LONG-TERM LAB WORK July 16, 2024 4 :00am LONG-TERM LAB WORK July 22, 2024 5 :00am LABWORK July 29, 2024 5:0 0am LONG-TERM LAB WORK August 05, 2024 5: 00am LONG-TERM LAB WORK August 12, 2024 5 :00am Chief Complaint Admit Date LABWORK May 20, 2024 5 :00am LONG-TERM LAB WORK May 27, 2024 5:00am LABWORK June 03, 2024 5 :00am LABWORK June 07, 2024 5 :00am LONG-TERM LAB WORK June 10 5:00am LABWORK June 17, 2024 5:00am LONG-TERM LAB WORK June 24 5:00am LONG-TERM LAB WORK June 27 2:00am LONG-TERM LAB WORK July 01, 2024 4: 00am LABWORK July 08, 2024 5:0 0am LONG-TERM LAB WORK July 15, 2024 5 :00am LONG-TERM LAB WORK July 16, 2024 4 :00am LONG-TERM LAB WORK July 22, 2024 5 :00am LABWORK July 29, 2024 5:0 0am LONG-TERM LAB WORK August 05, 2024 5: 00am LONG-TERM LAB WORK August 12, 2024 5 :00am LABWORK August 26, 2024 5:0 0am Chief Complaint Admit Date LABWORK June 03, 2024 5 :00am LABWORK June 07, 2024 5 :00am LONG-TERM LAB WORK June 10 5:00am LABWORK June 17, 2024 5:00am LONG-TERM LAB WORK June 24 5:00am LONG-TERM LAB WORK June 27 2:00am LONG-TERM LAB WORK July 01, 2024 4: 00am LABWORK July 08, 2024 5:0 0am LONG-TERM LAB WORK July 15, 2024 5 :00am LONG-TERM LAB WORK July 16, 2024 4 :00am LONG-TERM LAB WORK July 22, 2024 5 :00am LABWORK July 29, 2024 5:0 0am LONG-TERM LAB WORK August 05, 2024 5: 00am LONG-TERM LAB WORK August 12, 2024 5 :00am LONG-TERM LAB WORK August 19, 2024 4 :00am LONG-TERM LAB WORK August 23, 2024 5 :00am LABWORK August 26, 2024 5:0 0am LABWORK September 09, 2024 5:00a m Additional Source Comments (unrecognized sect ion and content) No Status Records FoundNo Status Records FoundNo Status Records FoundNo Status Records FoundNo Status Records FoundNo Status Records Found INFORMATION SOURCE (unrecogn ized section and content) DATE CREATED AUTHOR 09/04/[address] [facility] DATE CREATED AUTHOR AUTHOR'S ORGANIZ ATION 10/06/2018 [facility] DATE CREATED AUTHOR AUTHOR'S ORGANIZ ATION 03/26/2021 [facility] DATE CREATED AUTHOR AUTHOR'S ORGANIZ ATION 05/21/2021 [facility] DATE CREATED AUTHOR AUTHOR'S ORGANIZ ATION 06/28/2024 [facility] DATE CREATED AUTHOR AUTHOR'S ORGANIZ ATION 10/03/[address] [facility] Source Comments (unrecognize d section and content) In the event this informatio n is protected by the Federal Confidentiality of Alcohol and Drug Abuse Patient Records regulations: The Federal rules restrict any use of the information to criminally investigate or prosecute any alcohol or drug abuse patient.[facility] Reason for Visit (unrecogniz ed section [...] 1200 0953 (Given - Provider: Amelie Taylor [facility])1356 (Given - Provider: Amelie Taylor [facility])1648 (Given - Provider: Amelie Taylor [facility])2212 (Given - Provider: Claire Lagos [facility]) 0841 (Given - Provider: Ana Cabrera [facility])1213 (Given - Provider: Ana Cabrera DIRECTOR OF EVENTS)1622 (Given - Provider: Ana Cabrera DIRECTOR OF EVENTS)2037 (Given - Provider: Perla Loyola [facility]) 1020 (Given - Provider: Gabriel Soares [facility])1200 (Due)1600 (Due)2000 (Due) lansoprazole (PREVACID SOLUTAB) disintegrating tablet 30 mg 30 mg, PEG Tube, DAILY BEFORE BREAKFAST, First dose on 03/21/21 at 0700, Do not crush or break. 0754 (Given - Provider: Tra Pearl RN) 0639 (Given - Provider: Nnacy Solorio RN) 0641 (Given - Provider: Nancy [...] 2323 1003 (Given - Provider: Amelie Taylor DIRECTOR OF EVENTS)2215 (Given - Provider: Claire Lagos DIRECTOR OF EVENTS) 0841 (Given - Provider: Ana Cabrera DIRECTOR OF EVENTS)2051 (Given - Provider: Perla Loyola DIRECTOR OF EVENTS) 1200 (Due - Provider: Gabriel Soares DIRECTOR OF EVENTS)2100 (Due) sodium chloride flush 0.9 % injection [...] Status Dates Renard Burgos Attending Provider Active [employer] Specialty Start Date End Date Renard Burgos [address] [place] [phone] PCP - General Internal Medicine 10/16/23 [employer] Specialty Start Date End Date Renard Burgos [address] [place] [phone] PCP - General Internal Medicine 10/16/23 [employer] Relationship Specialty Start Date End Date Renard Burgos [address] [place] [phone] PCP - General Internal Medicine 10/16/23 [employer] Relationship Specialty Start Date End Date ShellieholaRenard [address] [facility] [address] [place] [address] PCP - General Internal Medicine 10/16/23 Team [...] Provider Active Sta rt: September 09, 2024 [employer] Specialty Start Date End Date Renard Burgos [address] [phone] PCP - General Internal Medicine 10/16/23 Team [...] 19, 2024 End: August 19, 2024 Renard Shelliedieog [place] Referring Provider Active Sta rt: August [...] BE BASED ON THE PRIMARY CLINICAL RECORDS. [employer] provides no warranty or guarantee of the accuracy or completeness of information in this document.
[2024-10-07 07:40] LABS: Absolute Neutrophil Count 5.1 X10^3/uL (2.0-7.7); Basophil# 0.04 X10^3/uL; Basophil% 0.5 % (0-1); Eosinophil# 0.07 X10^3/uL; Eosinophils% 0.9 % (0-5); Hematocrit 40.8 % (40-54); Hemoglobin 13.8 g/dL (13.0-16.5); Lymphocyte % 27.2 % (19-41); Mean Corp Hgb Conc 33.8 g/dL (32-36); Mean Corpuscular Volume 88.7 fL (80-94); Mean Platelet Vol. 11.2 fl (6.2-12.0); Monocyte# 0.68 X10^3/uL; Monocyte% 8.4 % (0-10); NRBC Flagged by Analyzer 0 % (0-5); Neutrophil # 5.09 X10^3/uL (2.7-7.7); Neutrophil % 62.8 % (47-70); Platelet Count 214 K/mm3 (150-450); RBC Distribution Width CV 13.2 % (11.6-14.6); White Blood Count 8.1 K/mm3 (4.4-11.0)
== END ==
LOC: OLS.SANC 05:00
PROVIDERS: Visit Provider Internal Medicine
DX: Z79.899 Other long term (current) drug therapy (principal)
CPT/HCPCS: 36415; 85025

== ENCOUNTER → 2024-10-14 04:00 | Outpatient (REF) | payer MEDICAID, SELFPAY ==
--- OUTSIDE RECORDS SUMMARY | 2024-10-14 04:50 | XMS RPT_ITS | CCD ---
Author Organization [facility] Care Team Providers Care Race Board Attendant Name Role Phone JORDAN OREILLY Attending Unavailable PROVIDER, UNKNOWN Referring Unavailable Nathanael Cazares Primary Care Unavailable PROVIDER, UNKNOWN Referring Unavailable Nathanael Cazares Primary Care Unavailable Jaime Lindquist Attending Unavailable Unavailable Primary Care Provider UnavailBethany Navarrete Primary Care Provider Jarvis Kendall MD Unavailable [phone] Bethany Russell MD Primary Care Provider Unavailable Primary Care Provider Unavailclifton Latif MD, Jenn Edwin Primary Care Provider Unavailable Primary Care Provider UnavailRenard Mccann Primary Care Provider [phone] Unavailable Primary Care Provider UnavailRENARD Mccann Attending [...] Katsaros OLS, Renard Referring Unavailable Katsaros OLS, Peter Attending Unavailable Katsaros OLS, Renard Referring Unavailable Katsaros OLS, Peter Attending Unavailable Katsaros [...] OLS, Renard Attending Unavailable Katsaros OLS, Peter Referring Unavailable [...] Unavailable Renard Jackson Attending Unavailable Renard Jackson Referring Unavailable Renard Jackson Attending Unavailable Renard Jackson Attending Unavailable Medications Current Medications Medication Drug Class(es) Dates Sig (Normalized) Sig (Original) Acetaminophen (18 sources) Start: 03-20-2021 acetaminophen (TYLENOL) tablet 650 mg Start: 05-22-2019 ACETAMINOPHEN 325 MG TABS 2 tablet via peg tube as needed ACETAMINOPHEN [id number] Ana Stevenson [employer] albuterol 0.83 mg/ml inhalation solution (1 source) beta2-Adrenergic Agonist Start: 03-19-2021 albut veronica (PROVENTIL) nebulizer solution 2.5 mg albuterol 0.833 mg/ml / ipratropium bromide 0.167 mg/ml inhalation solution (18 sources) Anticholinergic, beta2-Adrenergic Agonist Start: 03-20-2021 ipratropium-alb utero l (DUONEB) nebulizer solution 1 ampule Start: 05-22-2019 IPRATROPIUM-AL BUTEROL 0.5-2.5 (3) MG/3ML SOLN 3ml via nebulizer every 4 hours as needed IPRATROPIUM-ALBUTEROL [id number] Ana Peoplesch [employer] Start: 08-22-2018 take 3 mL by inhalat ion every four hours ipratropium-albuterol (DUONEB) 0.5-2.5 (3) MG/3ML SOLN nebulizer solution Inhale 3 mLs into the lungs every 4 hours 360 mL 0 08/22/2018 Active aspirin 81 mg chewable tablet (9 sources) Platelet Aggregation Inhibitor, Nonsteroidal Anti-inflammatory Drug Start: 05-22-2019 ASPIRIN ADULT LOW STRENGTH 81 MG CHEW one tablet via peg tube daily ASPIRIN [id number] Ana Diesch [employer] Start: 08-23-2018 aspirin 81 MG chewable tablet 1 tablet by Per NG tube route daily 30 tablet 3 08/23/2018 Active atorvastatin 40 mg oral tablet (9 sources) HMG-CoA Reductase Inhibitor Start: 05-22-2019 ATORVASTATIN CALCIUM 40 MG TABS one tablet via peg tube daily ATORVASTATIN CALCIUM [id number] Ana Diesch [employer] Start: 08-22-2018 atorvastatin ( LIPITOR) 40 MG tablet 1 tablet by Per NG tube route nightly 30 tablet 3 08/22/2018 Active castor oil 0.788 mg/mg / surinamese balsam 0.087 mg/mg topical ointment (7 sources) Standardized Chemical Allergen Start: 08-22-2018 Balsam Froilan-Huddleston O il (VENELEX) OINT ointment Apply topically [...] 250mg via peg tube twice daily CLOZAPINE [id number] [facility] Start: 08-22-2018 cloZAPine (AILYN ZARIL) 100 MG tablet 1 tablet by Per G Tube route 2 times daily 30 tablet 3 08/22/2018 Active cloZAPine (Cloza ril) 100 MG tablet Take 225 mg by mouth 2 times daily. Active take 1 [facility] daily cloZAPine (Clozaril) 50 MG tablet Take 50 mg by mouth daily. Active docusate sodium 10 mg/ml ora l suspension (18 sources) Start: 05-22-2019 DOCU 50 MG/5ML LIQD 5ml via peg tube twice daily DOCUSATE SODIUM [id number] [facility] Start: 08-22-2018 docusate (COLA CE) 50 MG/5ML liquid 10 mLs by Per NG tube route 2 times daily 0 08/22/2018 Active take 1 capsule by mo [facility] twice daily docusate sodium (Colace) 100 MG [...] one tablet via peg tube nightly MELATONIN [id number] Ana Stevenson [employer] Start: 08-22-2018 melatonin 3 MG TABS tablet [...] needed. 0 08/23/2018 Active polyethylene glycol 3350 66077 mg powder for oral solution (1 source) [...] Sig (Normalized) Sig (Original) barium sulfate (Varibar Watchtower, Varibar Honey) 40 % suspension 5 mL [...] SUPP every 24 hours as needed BISACODYL [id number] Ana Diesch [employer] Start: 05-22-2019 BISACODYL EC 5 MG TBEC one tablet via peg tube daily as needed BISACODYL [id number] [facility] chlorhexidine gluconate 1.2 mg/ml mouthwash (10 sources) Start: 05-22-2019 PERIDEX 0.12 % SOLN 15ml twice daily CHLORHEXIDINE GLUCONATE [id number] Ana Bahamaslocal.comch [employer] chlorhexidine (P eridex) 0.12 % solution Use 15 mL in the mouth or throat if needed for wound care. Active cholecalciferol 1000 unt oral tablet (16 sources) Vitamin D Start: 05-22-2019 VITAMIN D3 25 MCG (1000 UT) TABS one tablet via peg tube daily CHOLECALCIFEROL [id number] Ana Diesch [employer] cholecalciferol (SM Vitamin D3) 25 MCG (1000 UT) tablet Take 1,000 Units by mouth daily. Active dextromethorphan hydrobromide 2 mg/ml / guaiFENesin 20 mg/ml oral solution (1 source) Uncompetitive F-pldajp-Y-aspartate Receptor Antagonist, Sigma-1 Agonist Start: 05-22-2019 ROBITUSSIN PEAK COLD DM SYRP 5ml via peg tube every 4 hours as needed for cough DEXTROMETHORPHAN-GUAIFENESIN SYRP [id number] Ana Stveenson LPN magnesium hydroxide 240 mg/ml oral suspension (1 source) Start: 05-22-2019 MILK OF MAGNESIA CONCENTRATE SUSP 30ml via peg tube every 24 hours MAGNESIUM HYDROXIDE SUSP [id number] Ana Stevenson LPN methylPREDNISolone 40 mg injection (2 sources) Corticosteroid Start: 03-20-2021 End: 03-24-2021 methylPREDNISolone sodium (SOLU-MEDROL) injection 40 mg MULTIPLE VITAMINS-MINERALS (1 source) Start: 05-22-2019 MENS MULTIVITAMIN TABS one tablet via peg tube daily MULTIPLE VITAMINS-MINERALS [id number] Ana Stevenson LPN POLYETHYLENE GLYCOL 1450 (1 source) Start: 05-22-2019 POLYETHYLENE GLYCOL 1450 POW D 17 grams via peg tube twice daily POLYETHYLENE GLYCOL 1450 [id number] Ana Stevenson LPN SENNOSIDES-DOCUSATE SODIUM (1 source) Start: 05-22-2019 SENNA PLUS 8.6-50 MG TABS on e tablet via peg tube daily SENNOSIDES-DOCUSATE SODIUM [id number] Ana Stevenson LPN 50 ml sodium chloride [...] Onset: 9 07-11-2018 Other aftercare (2 sources) FPC (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; Translations: [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] Onset: 9 Episodic Other aftercare (2 sources) 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 therapy; Translations: [Other longterm (current) drug therapy] Onset: 5 Episodic Other aftercare (1 source) 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 antibiotics; Translations: [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 antibiotics] Onset: 5 Episodic Other connective tissue disease [...] decreased peristalsis] Onset: 9 07-23-2018 Episodic Other aftercare (1 source) 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; Translations: [FPC (current) use of 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] Onset: 5 Episodic [...] Facility CBC W/Diff, Automatedon 06-0 Absolute Lymph 2.20 X10 3/uL Normal 0.83-4.51 [facility] Comment on above: Order Comment: 109-1 Performed By: #### L 100.0100 ####[facility] [address] [place], [place], [id number](141 Absolute Neut 5.1 X10 3/uL Normal 2.0-7.7 [facility] Comment on above: Order Comment: 109-1 Performed By: #### L 100.0100 ####[facility] [address] [place], [place], [phone] Basophils/100 WBC (Bld) 0.5 % Normal 0-1 [facility] Comment on above: Order Comment: 109-1 Performed By: #### L 100.0100 ####[facility] [address] [place], [address] Eosinophils/100 WBC (Bld) 0.9 % Normal 0-5 [facility] Comment on above: Order Comment: 109-1 Performed By: #### L 100.0100 ####[facility] [address] [place], [address] Erythrocyte distribution width (RBC) [Ratio] 13.2 % Normal 11.6-14.6 [facility] Comment on above: Order Comment: 109-1 Performed By: #### L 100.0100 ####[facility] [address] [place], [address] Hematocrit (Bld) [Volume fraction] 40.8 % Normal 40-54 [facility] Comment on above: Order Comment: 109-1 Performed By: #### L 100.0100 ####[facility] [address] [place], [address] Hemoglobin (Bld) [Mass/Vol] 13.8 g/dL Normal 13.0-16.5 [facility] Comment on above: Order Comment: 109-1 Performed By: #### L 100.0100 ####[facility] [address] [place], [address] IG% 0.200 Normal 0.0-0.9 [facility] Comment on above: Order Comment: 109-1 Result Comment: IG% - Immature Granulocytes (promyelocytes, myelocytes andmetamyelocytes) > 1% indicates that a LEFT SHIFT is Present. Performed By: #### L 100.0100 ####[facility] [address] [place], [address] Lymphocytes/100 WBC (Bld) 27.2 % Normal 19-41 [facility] Comment on above: Order Comment: 109-1 Performed By: #### L 100.0100 ####[facility] [address] [place], [address] MCH (RBC) [Entitic mass] 30.0 pg Normal 27.0-32.0 [facility] Comment on above: Order Comment: 109-1 Performed By: #### L 100.0100 ####[facility] [address] [place], [address] MCHC (RBC) [Mass/Vol] 33.8 g/dL Normal 32-36 [facility] Comment on above: Order Comment: 109-1 Performed By: #### L 100.0100 ####[facility] [address] [place], [address] MCV (RBC) [Entitic vol] 88.7 fL Normal 80-94 [facility] Comment on above: Order Comment: 109-1 Performed By: #### L 100.0100 ####[facility] [address] [place], [address] Monocytes/100 WBC (Bld) 8.4 % Normal 0-10 [facility] Comment on above: Order Comment: 109-1 Performed By: #### L 100.0100 ####[facility] [address] [place], [address] Neutrophils/100 WBC (Bld) 62.8 % Normal 47-70 [facility] Comment on above: Order Comment: 109-1 Performed By: #### L 100.0100 ####[facility] [address] [place], [address] Nucleated RBC (Bld) [#/Vol] 0 10*3/uL Normal 0-5 [facility] Comment on above: Order Comment: 109-1 Performed By: #### L 100.0100 ####[facility] [address] [place], [address] Platelet mean volume (Bld) [Entitic vol] 11.2 fL Normal 6.2-12.0 [facility] Comment on above: Order Comment: 109-1 Performed By: #### L 100.0100 ####[facility] [address] [place], [address] Platelets (Bld) [#/Vol] 214 10*3/uL Normal 150-450 [facility] Comment on above: Order Comment: 109-1 Performed By: #### L 100.0100 ####[facility] [address] [place], [address] RBC (Bld) [#/Vol] 4.60 10*6/uL Normal 4.6-6.2 [facility] Comment on above: Order Comment: 109-1 Performed By: #### L 100.0100 ####[facility] [address] [place], [address] RDW SD 43.0 fl Normal 35.1-43.9 [facility] Comment on above: Order Comment: 109-1 Performed By: #### L 100.0100 ####[facility] [address] [place], [address] WBC (Bld) [#/Vol] 8.1 10*3/uL Normal 4.4-11.0 [facility] Comment on above: Order Comment: 109-1 Performed By: #### L 100.0100 ####[facility] [address] [place], [address] CBC W/Diff, Automatedon 06-0 2-2025 Absolute Lymph 3.13 X10 3/uL Normal 0.83-4.51 [facility] Comment on above: Order Comment: 109-1 Performed By: #### L 100.0100 ####[facility] [address] [place], [address] Absolute Neut 5.6 X10 3/uL Normal 2.0-7.7 [facility] Comment on above: Order Comment: 109-1 Performed By: #### L 100.0100 ####[facility] [address] [place], [address] Basophils/100 WBC (Bld) 0.6 % Normal 0-1 [facility] Comment on above: Order Comment: 109-1 Performed By: #### L 100.0100 ####[facility] [address] [place], [address] Eosinophils/100 WBC (Bld) 0.7 % Normal 0-5 [facility] Comment on above: Order Comment: 109-1 Performed By: #### L 100.0100 ####[facility] [address] [place], [address] Erythrocyte distribution width (RBC) [Ratio] 13.0 % Normal 11.6-14.6 [facility] Comment on above: Order Comment: 109-1 Performed By: #### L 100.0100 ####[facility] [address] [place], [address] Hematocrit (Bld) [Volume fraction] 46.9 % Normal 40-54 [facility] Comment on above: Order Comment: 109-1 Performed By: #### L 100.0100 ####[facility] [address] [place], [address] Hemoglobin (Bld) [Mass/Vol] 15.3 g/dL Normal 13.0-16.5 [facility] Comment on above: Order Comment: 109-1 Performed By: #### L 100.0100 ####[facility] [address] [place], [address] IG% 0.300 Normal 0.0-0.9 [facility] Comment on above: Order Comment: 109-1 Result Comment: IG% - Immature Granulocytes (promyelocytes, myelocytes andmetamyelocytes) > 1% indicates that a LEFT SHIFT is Present. Performed By: #### L 100.0100 ####[facility] [address] [place], [address] Lymphocytes/100 WBC (Bld) 31.7 % Normal 19-41 [facility] Comment on above: Order Comment: 109-1 Performed By: #### L 100.0100 ####[facility] [address] [place], [address] MCH (RBC) [Entitic mass] 29.7 pg Normal 27.0-32.0 [facility] Comment on above: Order Comment: 109-1 Performed By: #### L 100.0100 ####[facility] [address] [place], [address] MCHC (RBC) [Mass/Vol] 32.6 g/dL Normal 32-36 [facility] Comment on above: Order Comment: 109-1 Performed By: #### L 100.0100 ####[facility] [address] [place], [address] MCV (RBC) [Entitic vol] 91.1 fL Normal 80-94 [facility] Comment on above: Order Comment: 109-1 Performed By: #### L 100.0100 ####[facility] [address] [place], [address] Monocytes/100 WBC (Bld) 10.4 % High 0-10 [facility] Comment on above: Order Comment: 109-1 Performed By: #### L 100.0100 ####[facility] [address] [place], [address] Neutrophils/100 WBC (Bld) 56.3 % Normal 47-70 [facility] Comment on above: Order Comment: 109-1 Performed By: #### L 100.0100 ####[facility] [address] [place], [address] Nucleated RBC (Bld) [#/Vol] 0 10*3/uL Normal 0-5 [facility] Comment on above: Order Comment: 109-1 Performed By: #### L 100.0100 ####[facility] [address] [place], [address] Platelet mean volume (Bld) [Entitic vol] 11.7 fL Normal 6.2-12.0 [facility] Comment on above: Order Comment: 109-1 Performed By: #### L 100.0100 ####[facility] [address] [place], [address] Platelets (Bld) [#/Vol] 208 10*3/uL Normal 150-450 [facility] Comment on above: Order Comment: 109-1 Performed By: #### L 100.0100 ####[facility] [address] [place], [address] RBC (Bld) [#/Vol] 5.15 10*6/uL Normal 4.6-6.2 [facility] Comment on above: Order Comment: 109-1 Performed By: #### L 100.0100 ####[facility] [address] [place], [address] RDW SD 42.7 fl Normal 35.1-43.9 [facility] Comment on above: Order Comment: 109-1 Performed By: #### L 100.0100 ####[facility] [address] [place], [address] WBC (Bld) [#/Vol] 9.9 10*3/uL Normal 4.4-11.0 [facility] Comment on above: Order Comment: 109-1 Performed By: #### L 100.0100 ####[facility] [address] [place], [address] Absolute lymphocyte countOrd ered By: Renard Burgos on 09-24-2024 Lymphocytes Auto (Unsp spec) [#/Vol] 1.97 10*3/uL 0.83-4.51 [facility] Absolute neutrophil countOrd ered By: Renard Burgos on 09-24-2024 Neutrophils (Bld) [#/Vol] 6.8 10*3/uL 2.0-7.7 [facility] Automated blood erythrocyte countOrdered By: Renard Burgos on 09-24-2024 RBC (Bld) [#/Vol] 4.48 10*6/uL Low 4.6-6.2 [facility] Comment on above: Order Comment: 109 Performed By: #### L 100.0100 ####[facility] [address] [place], [place], [address] Automated blood hematocrit ( percentage)Ordered By: Renard Burgos on 09-24-2024 Hematocrit (Bld) [Volume fraction] 40.4 % Normal 40-54 [facility] Comment on above: Order Comment: 109 Performed By: #### L 100.0100 ####[facility] [address] [place], [address] Automated lymphocyte count a s percentage of total leukocytesOrdered By: Renard Burgos on 09-24-2024 Lymphocytes/100 WBC Auto (Unsp spec) 20.5 % 19-41 [facility] Basophil percentageOrdered B y: Renard Burgos on 09-24-2024 Basophils/100 WBC (Bld) 0.5 % Normal 0-1 [facility] Comment on above: Order Comment: 109 Performed By: #### L 100.0100 ####[facility] [address] [place], [address] CBC W/Diff, Automatedon 08-30 Absolute Lymph 1.97 X10 3/uL Normal 0.83-4.51 [facility] Comment on above: Order Comment: 109 Performed By: #### L 100.0100 ####[facility] [address] [place], [address] Absolute Neut 6.8 X10 3/uL Normal 2.0-7.7 [facility] Comment on above: Order Comment: 109 Performed By: #### L 100.0100 ####[facility] [address] [place], [address] IG% 0.300 Normal 0.0-0.9 [facility] Comment on above: Order Comment: 109 Result Comment: IG% - Immature Granulocytes (promyelocytes, myelocytes andmetamyelocytes) > 1% indicates that a LEFT SHIFT is Present. Performed By: #### L 100.0100 ####[facility] [address] [place], [address] Lymphocytes/100 WBC (Bld) 20.5 % Normal 19-41 [facility] Comment on above: Order Comment: 109 Performed By: #### L 100.0100 ####[facility] [address] [place], [address] Nucleated RBC (Bld) [#/Vol] 0 10*3/uL Normal 0-5 [facility] Comment on above: Order Comment: 109 Performed By: #### L 100.0100 ####[facility] [address] [place], [address] RDW SD 42.9 fl Normal 35.1-43.9 [facility] Comment on above: Order Comment: 109 Performed By: #### L 100.0100 ####[facility] [address] [place], [address] Eosinophil percentageOrdered By: Renard Burgos on 09-24-2024 Eosinophils/100 WBC (Bld) 0.5 % Normal 0-5 [facility] Comment on above: Order Comment: 109 Performed By: #### L 100.0100 ####[facility] [address] [place], [address] Erythrocyte distribution wid th ratioOrdered By: Renard Burgos on 09-24-2024 Erythrocyte distribution width (RBC) [Ratio] 13.1 % Normal 11.6-14.6 [facility] Comment on above: Order Comment: 109 Performed By: #### L 100.0100 ####[facility] [address] [place], [place], [id number] Erythrocyte distribution wid th standard deviationOrdered By: Renard Burgos on 09-24-2024 Erythrocyte distribution width (RBC) [Ratio] 42.9 fl 35.1-43.9 [facility] Hemoglobin measurementOrdere d By: Renard Burgos on 09-24-2024 Hemoglobin (Bld) [Mass/Vol] 13.4 g/dL Normal 13.0-16.5 [facility] Comment on above: Order Comment: 109 Performed By: #### L 100.0100 ####[facility] [address] [place], [address] Immature granulocytes/100 WB C Auto (Bld)Ordered By: Renard Burgos on 09-24-2024 Immature granulocytes/100 WBC (Bld) 0.300 % 0.0-0.9 [facility] Comment on above: IG% - Immature Granu locytes (promyelocytes, myelocytes and metamyelocytes) > 1% indicates that a LEFT SHIFT is Present. MCV (mean corpuscular volume ) determinationOrdered By: Renard Burgos on 09-24-2024 MCV (RBC) [Entitic vol] 90.2 fL Normal 80-94 [facility] Comment on above: Order Comment: 109 Performed By: #### L 100.0100 ####[facility] [address] [place], [address] Mean corpuscular hemoglobin (MCH) determinationOrdered By: Renard Burgos on 09-24-2024 MCH (RBC) [Entitic mass] 29.9 pg Normal 27.0-32.0 [facility] Comment on above: Order Comment: 109 Performed By: #### L 100.0100 ####[facility] [address] [place], [address] Mean corpuscular hemoglobin concentration (MCHC) determinationOrdered By: Renard Burgos on 09-24-2024 MCHC (RBC) [Mass/Vol] 33.2 g/dL Normal 32-36 [facility] Comment on above: Order Comment: 109 Performed By: #### L 100.0100 ####[facility] [address] [place], [address] Mean platelet volume determi nationOrdered By: Renard Burgos on 09-24-2024 Platelet mean volume (Bld) [Entitic vol] 11.3 fL Normal 6.2-12.0 [facility] Comment on above: Order Comment: 109 Performed By: #### L 100.0100 ####[facility] [address] [place], [address] Monocyte percentageOrdered B y: Renard Burgos on 09-24-2024 Monocytes/100 WBC (Bld) 7.2 % Normal 0-10 [facility] Comment on above: Order Comment: 109 Performed By: #### L 100.0100 ####[facility] [address] [place], [address] Neutrophil percentageOrdered By: Renard Burgos on 09-24-2024 Neutrophils/100 WBC (Bld) 71.0 % High 47-70 [facility] Comment on above: Order Comment: 109 Performed By: #### L 100.0100 ####[facility] [address] [place], [address] Nucleated red blood cell per centageOrdered By: Renard Burgos on 09-24-2024 Nucleated RBC/100 WBC (Bld) [Ratio] 0 % 0-5 [facility] Platelet countOrdered By: Garrick Bhatt on 09-24-2024 Platelets (Bld) [#/Vol] 187 10*3/uL Normal 150-450 [facility] Comment on above: Order Comment: 109 Performed By: #### L 100.0100 ####[facility] [address] [place], [address] White blood cell (WBC) count Ordered By: Renard Burgos on 09-24-2024 WBC (Bld) [#/Vol] 9.6 10*3/uL Normal 4.4-11.0 [facility] Comment on above: Order Comment: 109 Performed By: #### L 100.0100 ####[facility] [address] [place], [address] Absolute lymphocyte countOrd ered By: Renard Burgos on 09-16-2024 Lymphocytes Auto (Unsp spec) [#/Vol] 2.44 10*3/uL 0.83-4.51 [facility] Absolute neutrophil countOrd ered By: Renard Burgos on 09-16-2024 Neutrophils (Bld) [#/Vol] 5.5 10*3/uL 2.0-7.7 [facility] Automated lymphocyte count a s percentage of total leukocytesOrdered By: Renard Burgos on 09-16-2024 Lymphocytes/100 WBC Auto (Unsp spec) 27.7 % [facility] Basophil percentageOrdered B y: Renard Burgos on 09-16-2024 Basophils/100 WBC (Bld) 0.8 % 0-1 [facility] CBC W/Diff, Automatedon 08-29 Absolute Lymph 2.44 X10 3/uL Normal 0.83-4.51 [facility] Comment on above: Order Comment: 109.1 Performed By: #### L 100.0100 ####[facility] [address] [place], [address] Absolute Neut 5.5 X10 3/uL Normal 2.0-7.7 [facility] Comment on above: Order Comment: 109.1 Performed By: #### L 100.0100 ####[facility] [address] [place], [address] Basophils/100 WBC (Bld) 0.8 % Normal 0-1 [facility] Comment on above: Order Comment: 109.1 Performed By: #### L 100.0100 ####[facility] [address] [place], [address] Eosinophils/100 WBC (Bld) 0.7 % Normal 0-5 [facility] Comment on above: Order Comment: 109.1 Performed By: #### L 100.0100 ####[facility] [address] [place], [address] Erythrocyte distribution width (RBC) [Ratio] 13.1 % Normal 11.6-14.6 [facility] Comment on above: Order Comment: 109.1 Performed By: #### L 100.0100 ####[facility] [address] [place], [address] Hematocrit (Bld) [Volume fraction] 46.8 % Normal 40-54 [facility] Comment on above: Order Comment: 109.1 Performed By: #### L 100.0100 ####[facility] [address] [place], [address] Hemoglobin (Bld) [Mass/Vol] 15.4 g/dL Normal 13.0-16.5 [facility] Comment on above: Order Comment: 109.1 Performed By: #### L 100.0100 ####[facility] [address] [place], [address] IG% 0.200 Normal 0.0-0.9 [facility] Comment on above: Order Comment: 109.1 Result Comment: IG% - Immature Granulocytes (promyelocytes, myelocytes andmetamyelocytes) > 1% indicates that a LEFT SHIFT is Present. Performed By: #### L 100.0100 ####[facility] [address] [place], [address] Lymphocytes/100 WBC (Bld) 27.7 % Normal 19-41 [facility] Comment on above: Order Comment: 109.1 Performed By: #### L 100.0100 ####[facility] [address] [place], [address] MCH (RBC) [Entitic mass] 30.1 pg Normal 27.0-32.0 [facility] Comment on above: Order Comment: 109.1 Performed By: #### L 100.0100 ####[facility] [address] [place], [address] MCHC (RBC) [Mass/Vol] 32.9 g/dL Normal 32-36 [facility] Comment on above: Order Comment: 109.1 Performed By: #### L 100.0100 ####[facility] [address] [place], [address] MCV (RBC) [Entitic vol] 91.4 fL Normal 80-94 [facility] Comment on above: Order Comment: 109.1 Performed By: #### L 100.0100 ####[facility] [address] [place], [address] Monocytes/100 WBC (Bld) 8.5 % Normal 0-10 [facility] Comment on above: Order Comment: 109.1 Performed By: #### L 100.0100 ####[facility] [address] [place], [address] Neutrophils/100 WBC (Bld) 62.1 % Normal 47-70 [facility] Comment on above: Order Comment: 109.1 Performed By: #### L 100.0100 ####[facility] [address] [place], [address] Nucleated RBC (Bld) [#/Vol] 0 10*3/uL Normal 0-5 [facility] Comment on above: Order Comment: 109.1 Performed By: #### L 100.0100 ####[facility] [address] [place], [address] Platelet mean volume (Bld) [Entitic vol] 10.6 fL Normal 6.2-12.0 [facility] Comment on above: Order Comment: 109.1 Performed By: #### L 100.0100 ####[facility] [address] [place], [address] Platelets (Bld) [#/Vol] 190 10*3/uL Normal 150-450 [facility] Comment on above: Order Comment: 109.1 Performed By: #### L 100.0100 ####[facility] [address] [place], [address] RBC (Bld) [#/Vol] 5.12 10*6/uL Normal 4.6-6.2 [facility] Comment on above: Order Comment: 109.1 Performed By: #### L 100.0100 ####[facility] [address] [place], [address] RDW SD 43.3 fl Normal 35.1-43.9 [facility] Comment on above: Order Comment: 109.1 Performed By: #### L 100.0100 ####[facility] [address] [place], [address] WBC (Bld) [#/Vol] 8.8 10*3/uL Normal 4.4-11.0 [facility] Comment on above: Order Comment: 109.1 Performed By: #### L 100.0100 ####[facility] [address] [place], [address] Eosinophil percentageOrdered By: Renard Burgos on 09-16-2024 Eosinophils/100 WBC (Bld) 0.7 % 0-5 [facility] Erythrocyte distribution wid th ratioOrdered By: Renard Burgos on 09-16-2024 Erythrocyte distribution width (RBC) [Ratio] 13.1 % 11.6-14.6 [facility] Erythrocyte distribution wid th standard deviationOrdered By: Renard Burgos on 09-16-2024 Erythrocyte distribution width (RBC) [Ratio] 43.3 fl 35.1-43.9 [facility] Hematocrit Auto (Bld) [Volum e fraction]Ordered By: Renard Burgos on 09-16-2024 Hematocrit (Bld) [Volume fraction] 46.8 % 40-54 [facility] Hemoglobin measurementOrdere d By: Renard Burgos on 09-16-2024 Hemoglobin (Bld) [Mass/Vol] 15.4 g/dL 13.0-16.5 [facility] Immature granulocytes/100 WB C Auto (Bld)Ordered By: Renard Burgos on 09-16-2024 Immature granulocytes/100 WBC (Bld) 0.200 % 0.0-0.9 [facility] Comment on above: IG% - Immature Granu locytes (promyelocytes, myelocytes and metamyelocytes) > 1% indicates that a LEFT SHIFT is Present. MCV (mean corpuscular volume ) determinationOrdered By: Renard Burgos on 09-16-2024 MCV (RBC) [Entitic vol] 91.4 fL 80-94 [facility] Mean corpuscular hemoglobin (MCH) determinationOrdered By: Renard Burgos on 09-16-2024 MCH (RBC) [Entitic mass] 30.1 pg 27.0-32.0 [facility] Mean corpuscular hemoglobin concentration (MCHC) determinationOrdered By: Renard Burgos on 09-16-2024 MCHC (RBC) [Mass/Vol] 32.9 g/dL 32-36 [facility] Mean platelet volume determi nationOrdered By: Renard Burgos on 09-16-2024 Platelet mean volume (Bld) [Entitic vol] 10.6 fL 6.2-12.0 [facility] Monocyte percentageOrdered B y: Renard Burgos on 09-16-2024 Monocytes/100 WBC (Bld) 8.5 % 0-10 [facility] Neutrophil percentageOrdered By: Renard Burgos on 09-16-2024 Neutrophils/100 WBC (Bld) 62.1 % 47-70 [facility] Nucleated red blood cell per centageOrdered By: Renard Burgos on 09-16-2024 Nucleated RBC/100 WBC (Bld) [Ratio] 0 % 0-5 [facility] Platelet countOrdered By: Garrick Bhatt on 09-16-2024 Platelets (Bld) [#/Vol] 190 10*3/uL 150-450 [facility] RBC Auto (Bld) [#/Vol]Ordere d By: Renard Burgos on 09-16-2024 RBC (Bld) [#/Vol] 5.12 10*6/uL 4.6-6.2 [facility] White blood cell (WBC) count Ordered By: Renard Burgos on 09-16-2024 WBC (Bld) [#/Vol] 8.8 10*3/uL 4.4-11.0 [facility] Anion gap in Serum or Plasma Ordered By: Renard Burgos on 09-11-2024 Anion gap [Moles/Vol] 11 mmol/L 5-15 [facility] Automated blood erythrocyte countOrdered By: Renard Burgos on 09-11-2024 RBC (Bld) [#/Vol] 4.67 10*6/uL Normal 4.6-6.2 [facility] Comment on above: Order Comment: 109-1 Performed By: #### L 100.0500, L500.2500 ####[facility] [address] [facility] [address] [place], [place], [address] Automated blood hematocrit ( percentage)Ordered By: Renard Burgos on 09-11-2024 Hematocrit (Bld) [Volume fraction] 42.7 % Normal 40-54 [facility] Comment on above: Order Comment: 109-1 Performed By: #### L 100.0500, L500.2500 ####[facility] [address] [place], [address] BUN/creatinine ratioOrdered By: Renard Burgos on 09-11-2024 Urea nitrogen/Creatinine [Mass ratio] 23.0 mg/mg High [facility] Basic Metabolic Profile (BMP )on 09-11-2024 BUN/CRE 23.0 RATIO High 10- [facility] Comment on above: Order Comment: 109-1 Performed By: #### L 100.0500, L500.2500 ####[facility] [address] [place], [address] Calcium [Mass/Vol] 8.7 mg/dL Normal 7.6-11.0 [facility] Comment on above: Order Comment: 109-1 Performed By: #### L 100.0500, L500.2500 ####[facility] [address] [place], [address] Chloride [Moles/Vol] 104 mmol/L Normal 98-108 [facility] Comment on above: Order Comment: 109-1 Performed By: #### L 100.0500, L500.2500 ####[facility] [address] [place], [address] CO2 [Moles/Vol] 25.9 mmol/L Normal 21.0-32.0 [facility] Comment on above: Order Comment: 109-1 Performed By: #### L 100.0500, L500.2500 ####[facility] [address] [place], [address] Creatinine [Mass/Vol] 0.58 mg/dL Low 0.70-1.20 [facility] Comment on above: Order Comment: 109-1 Performed By: #### L 100.0500, L500.2500 ####[facility] [address] [place], [address] GAP 11 Normal 5-15 [facility] Comment on above: Order Comment: 109-1 Performed By: #### L 100.0500, L500.2500 ####[facility] [address] [place], [address] GFR/1.73 sq M.predicted among non-blacks MDRD (S/P/Bld) [Vol rate/Area] 107 mL/min/{1.73_m2} Normal >60 [facility] Comment on above: Order Comment: 109-1 Result Comment: mL/m in/1.73m2 CKD-EPI Creatinine Equation (2020) Performed By: #### L 100.0500, L500.2500 ####[facility] [address] [place], [address] Glucose [Mass/Vol] 113 mg/dL High 70-99 [facility] Comment on above: Order Comment: 109-1 Performed By: #### L 100.0500, L500.2500 ####[facility] [address] [place], [address] Potassium [Moles/Vol] 3.8 mmol/L Normal 3.3-5.1 [facility] Comment on above: Order Comment: 109-1 Performed By: #### L 100.0500, L500.2500 ####[facility] [address] [place], [address] Sodium [Moles/Vol] 141 mmol/L Normal 133-145 [facility] Comment on above: Order Comment: 109-1 Performed By: #### L 100.0500, L500.2500 ####[facility] [address] [place], [address] Urea nitrogen [Mass/Vol] 13 mg/dL Normal 4-19 [facility] Comment on above: Order Comment: 109-1 Performed By: #### L 100.0500, L500.2500 ####[facility] [address] [place], [address] CBC-Complete Blood Cnt No Di ffon 09-11-2024 RDW SD 43.7 fl Normal 35.1-43.9 [facility] Comment on above: Order Comment: 109-1 Performed By: #### L 100.0500, L500.2500 ####[facility] [address] [place], [address] Carbon dioxide, total [Moles /volume] in Central venous bloodOrdered By: Renard Burgos on 09-11-2024 CO2 [Moles/Vol] 25.9 mmol/L 21.0-32.0 [facility] Chloride assayOrdered By: Garrick Bhatt on 09-11-2024 Chloride [Moles/Vol] 104 mmol/L 98-108 [facility] Erythrocyte distribution wid th ratioOrdered By: Renard Burgos on 09-11-2024 Erythrocyte distribution width (RBC) [Ratio] 13.2 % Normal 11.6-14.6 [facility] Comment on above: Order Comment: 109-1 Performed By: #### L 100.0500, L500.2500 ####[facility] [address] [place], [place], [address] Erythrocyte distribution wid th standard deviationOrdered By: Renard Burgos on 09-11-2024 Erythrocyte distribution width (RBC) [Ratio] 43.7 fl 35.1-43.9 [facility] Glomerular filtration rate ( GFR) estimation/1.73 sq m using serum, plasma, or whole bOrdered By: Renard Burgos on 09-11-2024 GFR/1.73 sq M.predicted among non-blacks MDRD (S/P/Bld) [Vol rate/Area] 107 mL/min/{1.73_m2} >60 [facility] Comment on above: mL/min/1.73m2 CKD-EP I Creatinine Equation (2020) Hemoglobin measurementOrdere d By: Renard Burgos on 09-11-2024 Hemoglobin (Bld) [Mass/Vol] 14.0 g/dL Normal 13.0-16.5 [facility] Comment on above: Order Comment: 109-1 Performed By: #### L 100.0500, L500.2500 ####[facility] [address] [place], [place], [address] MCV (mean corpuscular volume ) determinationOrdered By: Renard Burgos on 09-11-2024 MCV (RBC) [Entitic vol] 91.4 fL Normal 80-94 [facility] Comment on above: Order Comment: 109-1 Performed By: #### L 100.0500, L500.2500 ####[facility] [address] [place], [address] Mean corpuscular hemoglobin (MCH) determinationOrdered By: Renard Burgos on 09-11-2024 MCH (RBC) [Entitic mass] 30.0 pg Normal 27.0-32.0 [facility] Comment on above: Order Comment: 109-1 Performed By: #### L 100.0500, L500.2500 ####[facility] [address] [place], [address] Mean corpuscular hemoglobin concentration (MCHC) determinationOrdered By: Renard Burgos on 09-11-2024 MCHC (RBC) [Mass/Vol] 32.8 g/dL Normal 32-36 [facility] Comment on above: Order Comment: 109-1 Performed By: #### L 100.0500, L500.2500 ####[facility] [address] [place], [address] Mean platelet volume determi nationOrdered By: Renard Burgos on 09-11-2024 Platelet mean volume (Bld) [Entitic vol] 11.3 fL Normal 6.2-12.0 [facility] Comment on above: Order Comment: 109-1 Performed By: #### L 100.0500, L500.2500 ####[facility] [address] [place], [address] Platelet countOrdered By: Garrick Bhatt on 09-11-2024 Platelets (Bld) [#/Vol] 191 10*3/uL Normal 150-450 [facility] Comment on above: Order Comment: 109-1 Performed By: #### L 100.0500, L500.2500 ####[facility] [address] [place], [address] Potassium measurement (mass/ volume)Ordered By: Renard Burgos on 09-11-2024 Potassium (Unsp spec) [Mass/Vol] 3.8 mmol/L 3.3-5.1 [facility] Serum creatinine measurement (mass/volume)Ordered By: Renard Burgos on 09-11-2024 Creatinine [Mass/Vol] 0.58 mg/dL Low 0.70-1.20 [facility] Serum glucose measurement (m ass/volume)Ordered By: Renard Burgos on 09-11-2024 Glucose [Mass/Vol] 113 mg/dL High 70-99 [facility] Serum or plasma calcium gordy urement (mass/volume)Ordered By: Renard Burgos on 09-11-2024 Calcium [Mass/Vol] 8.7 mg/dL 7.6-11.0 [facility] Serum or plasma urea nitroge n measurement (mass/volume)Ordered By: Renard Burgos on 09-11-2024 Urea nitrogen [Mass/Vol] 13 mg/dL 4-19 [facility] Sodium levelOrdered By: Lamine Burgos on 09-11-2024 Sodium [Moles/Vol] 141 mmol/L 133-145 [facility] White blood cell (WBC) count Ordered By: Renard Burgos on 09-11-2024 WBC (Bld) [#/Vol] 7.6 10*3/uL Normal 4.4-11.0 [facility] Comment on above: Order Comment: 109-1 Performed By: #### L 100.0500, L500.2500 ####[facility] [address] [place], [place], [address] Absolute lymphocyte countOrd ered By: Renard Burgos on 09-09-2024 Lymphocytes Auto (Unsp spec) [#/Vol] 2.24 10*3/uL 0.83-4.51 [facility] Absolute neutrophil countOrd ered By: Renard Burgos on 09-09-2024 Neutrophils (Bld) [#/Vol] 8.7 10*3/uL High 2.0-7.7 [facility] Automated lymphocyte count a s percentage of total leukocytesOrdered By: Renard Burgos on 09-09-2024 Lymphocytes/100 WBC Auto (Unsp spec) 19.1 % 19- [facility] Basophil percentageOrdered B y: Renard Burgos on 09-09-2024 Basophils/100 WBC (Bld) 0.4 % 0-1 [facility] CBC W/Diff, Automatedon 08-29 Absolute Lymph 2.24 X10 3/uL Normal 0.83-4.51 [facility] Comment on above: Order Comment: 109-1 Performed By: #### L 100.0100 ####[facility] [address] [place], [address] Absolute Neut 8.7 X10 3/uL High 2.0-7.7 [facility] Comment on above: Order Comment: 109-1 Performed By: #### L 100.0100 ####[facility] [address] [place], [address] Basophils/100 WBC (Bld) 0.4 % Normal 0-1 [facility] Comment on above: Order Comment: 109-1 Performed By: #### L 100.0100 ####[facility] [address] [place], [address] Eosinophils/100 WBC (Bld) 0.5 % Normal 0-5 [facility] Comment on above: Order Comment: 109-1 Performed By: #### L 100.0100 ####[facility] [address] [place], [address] Erythrocyte distribution width (RBC) [Ratio] 13.0 % Normal 11.6-14.6 [facility] Comment on above: Order Comment: 109-1 Performed By: #### L 100.0100 ####[facility] [address] [place], [address] Hematocrit (Bld) [Volume fraction] 44.7 % Normal 40-54 [facility] Comment on above: Order Comment: 109-1 Performed By: #### L 100.0100 ####[facility] [address] [place], [address] Hemoglobin (Bld) [Mass/Vol] 14.6 g/dL Normal 13.0-16.5 [facility] Comment on above: Order Comment: 109-1 Performed By: #### L 100.0100 ####[facility] [address] [place], [address] IG% 0.300 Normal 0.0-0.9 [facility] Comment on above: Order Comment: 109-1 Result Comment: IG% - Immature Granulocytes (promyelocytes, myelocytes andmetamyelocytes) > 1% indicates that a LEFT SHIFT is Present. Performed By: #### L 100.0100 ####[facility] [address] [place], [address] Lymphocytes/100 WBC (Bld) 19.1 % Normal 19-41 [facility] Comment on above: Order Comment: 109-1 Performed By: #### L 100.0100 ####[facility] [address] [place], [address] MCH (RBC) [Entitic mass] 30.1 pg Normal 27.0-32.0 [facility] Comment on above: Order Comment: 109-1 Performed By: #### L 100.0100 ####[facility] [address] [place], [address] MCHC (RBC) [Mass/Vol] 32.7 g/dL Normal 32-36 [facility] Comment on above: Order Comment: 109-1 Performed By: #### L 100.0100 ####[facility] [address] [place], [address] MCV (RBC) [Entitic vol] 92.2 fL Normal 80-94 [facility] Comment on above: Order Comment: 109-1 Performed By: #### L 100.0100 ####[facility] [address] [place], [address] Monocytes/100 WBC (Bld) 5.1 % Normal 0-10 [facility] Comment on above: Order Comment: 109-1 Performed By: #### L 100.0100 ####[facility] [address] [place], [address] Neutrophils/100 WBC (Bld) 74.6 % High 47-70 [facility] Comment on above: Order Comment: 109-1 Performed By: #### L 100.0100 ####[facility] [address] [place], [address] Nucleated RBC (Bld) [#/Vol] 0 10*3/uL Normal 0-5 [facility] Comment on above: Order Comment: 109-1 Performed By: #### L 100.0100 ####[facility] [address] [place], [address] Platelet mean volume (Bld) [Entitic vol] 11.6 fL Normal 6.2-12.0 [facility] Comment on above: Order Comment: 109-1 Performed By: #### L 100.0100 ####[facility] [address] [place], [address] Platelets (Bld) [#/Vol] 189 10*3/uL Normal 150-450 [facility] Comment on above: Order Comment: 109-1 Performed By: #### L 100.0100 ####[facility] [address] [place], [address] RBC (Bld) [#/Vol] 4.85 10*6/uL Normal 4.6-6.2 [facility] Comment on above: Order Comment: 109-1 Performed By: #### L 100.0100 ####[facility] [address] [place], [address] RDW SD 43.8 fl Normal 35.1-43.9 [facility] Comment on above: Order Comment: 109-1 Performed By: #### L 100.0100 ####[facility] [address] [place], [address] WBC (Bld) [#/Vol] 11.7 10*3/uL High 4.4-11.0 [facility] Comment on above: Order Comment: 109-1 Performed By: #### L 100.0100 ####[facility] [address] [place], [address] Eosinophil percentageOrdered By: Renard Burgos on 09-09-2024 Eosinophils/100 WBC (Bld) 0.5 % 0-5 [facility] Erythrocyte distribution wid th ratioOrdered By: Renard Burgos on 09-09-2024 Erythrocyte distribution width (RBC) [Ratio] 13.0 % 11.6-14.6 [facility] Erythrocyte distribution wid th standard deviationOrdered By: Renard Burgos on 09-09-2024 Erythrocyte distribution width (RBC) [Ratio] 43.8 fl 35.1-43.9 [facility] Hematocrit Auto (Bld) [Volum e fraction]Ordered By: Renard Burgos on 09-09-2024 Hematocrit (Bld) [Volume fraction] 44.7 % 40-54 [facility] Hemoglobin measurementOrdere d By: Renard Burgos on 09-09-2024 Hemoglobin (Bld) [Mass/Vol] 14.6 g/dL 13.0-16.5 [facility] Immature granulocytes/100 WB C Auto (Bld)Ordered By: Renard Burgos on 09-09-2024 Immature granulocytes/100 WBC (Bld) 0.300 % 0.0-0.9 [facility] Comment on above: IG% - Immature Granu locytes (promyelocytes, myelocytes and metamyelocytes) > 1% indicates that a LEFT SHIFT is Present. MCV (mean corpuscular volume ) determinationOrdered By: Renard Burgos on 09-09-2024 MCV (RBC) [Entitic vol] 92.2 fL 80-94 [facility] Mean corpuscular hemoglobin (MCH) determinationOrdered By: Renard Burgos on 09-09-2024 MCH (RBC) [Entitic mass] 30.1 pg 27.0-32.0 [facility] Mean corpuscular hemoglobin concentration (MCHC) determinationOrdered By: Renard Burgos on 09-09-2024 MCHC (RBC) [Mass/Vol] 32.7 g/dL 32-36 [facility] Mean platelet volume determi nationOrdered By: Renard Burgos on 09-09-2024 Platelet mean volume (Bld) [Entitic vol] 11.6 fL 6.2-12.0 [facility] Monocyte percentageOrdered B y: Renard Burgos on 09-09-2024 Monocytes/100 WBC (Bld) 5.1 % 0-10 [facility] Neutrophil percentageOrdered By: Renard Burgos on 09-09-2024 Neutrophils/100 WBC (Bld) 74.6 % High 47-70 [facility] Nucleated red blood cell per centageOrdered By: Renard Burgos on 09-09-2024 Nucleated RBC/100 WBC (Bld) [Ratio] 0 % 0-5 [facility] Platelet countOrdered By: Garrick Bhatt on 09-09-2024 Platelets (Bld) [#/Vol] 189 10*3/uL 150-450 [facility] RBC Auto (Bld) [#/Vol]Ordere d By: Renard Burgos on 09-09-2024 RBC (Bld) [#/Vol] 4.85 10*6/uL 4.6-6.2 [facility] White blood cell (WBC) count Ordered By: Renard Burgos on 09-09-2024 WBC (Bld) [#/Vol] 11.7 10*3/uL High 4.4-11.0 [facility] Absolute lymphocyte countOrd ered By: Renard Burgos on 09-02-2024 Lymphocytes Auto (Unsp spec) [#/Vol] 2.07 10*3/uL 0.83-4.51 [facility] Absolute neutrophil countOrd ered By: Renard Burgos on 09-02-2024 Neutrophils (Bld) [#/Vol] 5.8 10*3/uL 2.0-7.7 [facility] Automated lymphocyte count a s percentage of total leukocytesOrdered By: Renard Burgos on 09-02-2024 Lymphocytes/100 WBC Auto (Unsp spec) 24.4 % 19-41 [facility] Basophil percentageOrdered B y: Renard Burgos on 09-02-2024 Basophils/100 WBC (Bld) 0.6 % 0-1 [facility] CBC W/Diff, Automatedon Absolute Lymph 2.07 X10 3/uL Normal 0.83-4.51 [facility] Comment on above: Order Comment: 109 Performed By: #### L 100.0100 ####[facility] [address] [place], [address] Absolute Neut 5.8 X10 3/uL Normal 2.0-7.7 [facility] Comment on above: Order Comment: 109 Performed By: #### L 100.0100 ####[facility] [address] [place], [address] Basophils/100 WBC (Bld) 0.6 % Normal 0-1 [facility] Comment on above: Order Comment: 109 Performed By: #### L 100.0100 ####[facility] [address] [place], [address] Eosinophils/100 WBC (Bld) 0.7 % Normal 0-5 [facility] Comment on above: Order Comment: 109 Performed By: #### L 100.0100 ####[facility] [address] [place], [address] Erythrocyte distribution width (RBC) [Ratio] 12.8 % Normal 11.6-14.6 [facility] Comment on above: Order Comment: 109 Performed By: #### L 100.0100 ####[facility] [address] [place], [address] Hematocrit (Bld) [Volume fraction] 44.5 % Normal 40-54 [facility] Comment on above: Order Comment: 109 Performed By: #### L 100.0100 ####[facility] [address] [place], [address] Hemoglobin (Bld) [Mass/Vol] 14.9 g/dL Normal 13.0-16.5 [facility] Comment on above: Order Comment: 109 Performed By: #### L 100.0100 ####[facility] [address] [place], [address] IG% 0.400 Normal 0.0-0.9 [facility] Comment on above: Order Comment: 109 Result Comment: IG% - Immature Granulocytes (promyelocytes, myelocytes andmetamyelocytes) > 1% indicates that a LEFT SHIFT is Present. Performed By: #### L 100.0100 ####[facility] [address] [place], [address] Lymphocytes/100 WBC (Bld) 24.4 % Normal 19-41 [facility] Comment on above: Order Comment: 109 Performed By: #### L 100.0100 ####[facility] [address] [place], [address] MCH (RBC) [Entitic mass] 29.9 pg Normal 27.0-32.0 [facility] Comment on above: Order Comment: 109 Performed By: #### L 100.0100 ####[facility] [address] [place], [address] MCHC (RBC) [Mass/Vol] 33.5 g/dL Normal 32-36 [facility] Comment on above: Order Comment: 109 Performed By: #### L 100.0100 ####[facility] [address] [place], [address] MCV (RBC) [Entitic vol] 89.4 fL Normal 80-94 [facility] Comment on above: Order Comment: 109 Performed By: #### L 100.0100 ####[facility] [address] [place], [address] Monocytes/100 WBC (Bld) 5.4 % Normal 0-10 [facility] Comment on above: Order Comment: 109 Performed By: #### L 100.0100 ####[facility] [address] [place], [address] Neutrophils/100 WBC (Bld) 68.5 % Normal 47-70 [facility] Comment on above: Order Comment: 109 Performed By: #### L 100.0100 ####[facility] [address] [place], [address] Nucleated RBC (Bld) [#/Vol] 0 10*3/uL Normal 0-5 [facility] Comment on above: Order Comment: 109 Performed By: #### L 100.0100 ####[facility] [address] [place], [address] Platelet mean volume (Bld) [Entitic vol] 10.7 fL Normal 6.2-12.0 [facility] Comment on above: Order Comment: 109 Performed By: #### L 100.0100 ####[facility] [address] [place], [address] Platelets (Bld) [#/Vol] 189 10*3/uL Normal 150-450 [facility] Comment on above: Order Comment: 109 Performed By: #### L 100.0100 ####[facility] [address] [place], [address] RBC (Bld) [#/Vol] 4.98 10*6/uL Normal 4.6-6.2 [facility] Comment on above: Order Comment: 109 Performed By: #### L 100.0100 ####[facility] [address] [place], [address] RDW SD 41.7 fl Normal 35.1-43.9 [facility] Comment on above: Order Comment: 109 Performed By: #### L 100.0100 ####[facility] [address] [place], [address] WBC (Bld) [#/Vol] 8.5 10*3/uL Normal 4.4-11.0 [facility] Comment on above: Order Comment: 109 Performed By: #### L 100.0100 ####[facility] [address] [place], [address] Eosinophil percentageOrdered By: Renard Burgos on 09-02-2024 Eosinophils/100 WBC (Bld) 0.7 % 0-5 [facility] Erythrocyte distribution wid th ratioOrdered By: Renard Burgos on 09-02-2024 Erythrocyte distribution width (RBC) [Ratio] 12.8 % 11.6-14.6 [facility] Erythrocyte distribution wid th standard deviationOrdered By: Renard Burgos on 09-02-2024 Erythrocyte distribution width (RBC) [Ratio] 41.7 fl 35.1-43.9 [facility] Hematocrit Auto (Bld) [Volum e fraction]Ordered By: Renard Burgos on 09-02-2024 Hematocrit (Bld) [Volume fraction] 44.5 % 40-54 [facility] Hemoglobin measurementOrdere d By: Renard Burgos on 09-02-2024 Hemoglobin (Bld) [Mass/Vol] 14.9 g/dL 13.0-16.5 [facility] Immature granulocytes/100 WB C Auto (Bld)Ordered By: Renard Burgos on 09-02-2024 Immature granulocytes/100 WBC (Bld) 0.400 % 0.0-0.9 [facility] Comment on above: IG% - Immature Granu locytes (promyelocytes, myelocytes and metamyelocytes) > 1% indicates that a LEFT SHIFT is Present. MCV (mean corpuscular volume ) determinationOrdered By: Renard Burgos on 09-02-2024 MCV (RBC) [Entitic vol] 89.4 fL 80-94 [facility] Mean corpuscular hemoglobin (MCH) determinationOrdered By: Renard Burgos on 09-02-2024 MCH (RBC) [Entitic mass] 29.9 pg 27.0-32.0 [facility] Mean corpuscular hemoglobin concentration (MCHC) determinationOrdered By: Renard Burgos on 09-02-2024 MCHC (RBC) [Mass/Vol] 33.5 g/dL 32-36 [facility] Mean platelet volume determi nationOrdered By: Renard Burgos on 09-02-2024 Platelet mean volume (Bld) [Entitic vol] 10.7 fL 6.2-12.0 [facility] Monocyte percentageOrdered B y: Renard Burgos on 09-02-2024 Monocytes/100 WBC (Bld) 5.4 % 0-10 [facility] Neutrophil percentageOrdered By: Renard Burgos on 09-02-2024 Neutrophils/100 WBC (Bld) 68.5 % 47-70 [facility] Nucleated red blood cell per centageOrdered By: Renard uBrgos on 09-02-2024 Nucleated RBC/100 WBC (Bld) [Ratio] 0 % 0-5 [facility] Platelet countOrdered By: Garrick Bhatt on 09-02-2024 Platelets (Bld) [#/Vol] 189 10*3/uL 150-450 [facility] RBC Auto (Bld) [#/Vol]Ordere d By: Renard Burgos on 09-02-2024 RBC (Bld) [#/Vol] 4.98 10*6/uL 4.6-6.2 [facility] White blood cell (WBC) count Ordered By: Renard uBrgos on 09-02-2024 WBC (Bld) [#/Vol] 8.5 10*3/uL 4.4-11.0 [facility] Absolute lymphocyte countOrd ered By: Renard Burgos on 08-26-2024 Lymphocytes Auto (Unsp spec) [#/Vol] 2.17 10*3/uL 0.83-4.51 [facility] Absolute neutrophil countOrd ered By: Renard Burgos on 08-26-2024 Neutrophils (Bld) [#/Vol] 5.7 10*3/uL 2.0-7.7 [facility] Automated lymphocyte count a s percentage of total leukocytesOrdered By: Renard Burgos on 08-26-2024 Lymphocytes/100 WBC Auto (Unsp spec) 25.1 % 19-41 [facility] Basophil percentageOrdered B y: Renard Burgos on 08-26-2024 Basophils/100 WBC (Bld) 0.6 % 0-1 [facility] CBC W/Diff, Automatedon 07-31 Absolute Lymph 2.17 X10 3/uL Normal 0.83-4.51 [facility] Comment on above: Order Comment: 109-1 Performed By: #### L 100.0100 ####[facility] [address] [place], [address] Absolute Neut 5.7 X10 3/uL Normal 2.0-7.7 [facility] Comment on above: Order Comment: 109-1 Performed By: #### L 100.0100 ####[facility] [address] [place], [address] Basophils/100 WBC (Bld) 0.6 % Normal 0-1 [facility] Comment on above: Order Comment: 109-1 Performed By: #### L 100.0100 ####[facility] [address] [place], [address] Eosinophils/100 WBC (Bld) 0.8 % Normal 0-5 [facility] Comment on above: Order Comment: 109-1 Performed By: #### L 100.0100 ####[facility] [address] [place], [address] Erythrocyte distribution width (RBC) [Ratio] 12.7 % Normal 11.6-14.6 [facility] Comment on above: Order Comment: 109-1 Performed By: #### L 100.0100 ####[facility] [address] [place], [address] Hematocrit (Bld) [Volume fraction] 41.8 % Normal 40-54 [facility] Comment on above: Order Comment: 109-1 Performed By: #### L 100.0100 ####[facility] [address] [place], [address] Hemoglobin (Bld) [Mass/Vol] 13.8 g/dL Normal 13.0-16.5 [facility] Comment on above: Order Comment: 109-1 Performed By: #### L 100.0100 ####[facility] [address] [place], [address] IG% 0.200 Normal 0.0-0.9 [facility] Comment on above: Order Comment: 109-1 Result Comment: IG% - Immature Granulocytes (promyelocytes, myelocytes andmetamyelocytes) > 1% indicates that a LEFT SHIFT is Present. Performed By: #### L 100.0100 ####[facility] [address] [place], [address] Lymphocytes/100 WBC (Bld) 25.1 % Normal 19-41 [facility] Comment on above: Order Comment: 109-1 Performed By: #### L 100.0100 ####[facility] [address] [place], [address] MCH (RBC) [Entitic mass] 29.7 pg Normal 27.0-32.0 [facility] Comment on above: Order Comment: 109-1 Performed By: #### L 100.0100 ####[facility] [address] [place], [address] MCHC (RBC) [Mass/Vol] 33.0 g/dL Normal 32-36 [facility] Comment on above: Order Comment: 109-1 Performed By: #### L 100.0100 ####[facility] [address] [place], [address] MCV (RBC) [Entitic vol] 90.1 fL Normal 80-94 [facility] Comment on above: Order Comment: 109-1 Performed By: #### L 100.0100 ####[facility] [address] [place], [address] Monocytes/100 WBC (Bld) 7.4 % Normal 0-10 [facility] Comment on above: Order Comment: 109-1 Performed By: #### L 100.0100 ####[facility] [address] [place], [address] Neutrophils/100 WBC (Bld) 65.9 % Normal 47-70 [facility] Comment on above: Order Comment: 109-1 Performed By: #### L 100.0100 ####[facility] [address] [place], [address] Nucleated RBC (Bld) [#/Vol] 0 10*3/uL Normal 0-5 [facility] Comment on above: Order Comment: 109-1 Performed By: #### L 100.0100 ####[facility] [address] [place], [address] Platelet mean volume (Bld) [Entitic vol] 11.3 fL Normal 6.2-12.0 [facility] Comment on above: Order Comment: 109-1 Performed By: #### L 100.0100 ####[facility] [address] [place], [address] Platelets (Bld) [#/Vol] 196 10*3/uL Normal 150-450 [facility] Comment on above: Order Comment: 109-1 Performed By: #### L 100.0100 ####[facility] [address] [place], [address] RBC (Bld) [#/Vol] 4.64 10*6/uL Normal 4.6-6.2 [facility] Comment on above: Order Comment: 109-1 Performed By: #### L 100.0100 ####[facility] [address] [place], [address] RDW SD 41.3 fl Normal 35.1-43.9 [facility] Comment on above: Order Comment: 109-1 Performed By: #### L 100.0100 ####[facility] [address] [place], [address] WBC (Bld) [#/Vol] 8.6 10*3/uL Normal 4.4-11.0 [facility] Comment on above: Order Comment: 109-1 Performed By: #### L 100.0100 ####[facility] [address] [place], [address] Eosinophil percentageOrdered By: Renard Burgos on 08-26-2024 Eosinophils/100 WBC (Bld) 0.8 % 0-5 [facility] Erythrocyte distribution wid th ratioOrdered By: Renard Burgos on 08-26-2024 Erythrocyte distribution width (RBC) [Ratio] 12.7 % 11.6-14.6 [facility] Erythrocyte distribution wid th standard deviationOrdered By: Renard Burgos on 08-26-2024 Erythrocyte distribution width (RBC) [Ratio] 41.3 fl 35.1-43.9 [facility] Hematocrit Auto (Bld) [Volum e fraction]Ordered By: Renard Burgos on 08-26-2024 Hematocrit (Bld) [Volume fraction] 41.8 % 40-54 [facility] Hemoglobin measurementOrdere d By: Renard Burgos on 08-26-2024 Hemoglobin (Bld) [Mass/Vol] 13.8 g/dL 13.0-16.5 [facility] Immature granulocytes/100 WB C Auto (Bld)Ordered By: Renard Burgos on 08-26-2024 Immature granulocytes/100 WBC (Bld) 0.200 % 0.0-0.9 [facility] Comment on above: IG% - Immature Granu locytes (promyelocytes, myelocytes and metamyelocytes) > 1% indicates that a LEFT SHIFT is Present. MCV (mean corpuscular volume ) determinationOrdered By: Renard Burgos on 08-26-2024 MCV (RBC) [Entitic vol] 90.1 fL 80-94 [facility] Mean corpuscular hemoglobin (MCH) determinationOrdered By: Renard Burgos on 08-26-2024 MCH (RBC) [Entitic mass] 29.7 pg 27.0-32.0 [facility] Mean corpuscular hemoglobin concentration (MCHC) determinationOrdered By: Renard Burgos on 08-26-2024 MCHC (RBC) [Mass/Vol] 33.0 g/dL 32-36 [facility] Mean platelet volume determi nationOrdered By: Renard Burgos on 08-26-2024 Platelet mean volume (Bld) [Entitic vol] 11.3 fL 6.2-12.0 [facility] Monocyte percentageOrdered B y: Renard Burgos on 08-26-2024 Monocytes/100 WBC (Bld) 7.4 % 0-10 [facility] Neutrophil percentageOrdered By: Renard Burgos on 08-26-2024 Neutrophils/100 WBC (Bld) 65.9 % 47-70 [facility] Nucleated red blood cell per centageOrdered By: Renard Burgos on 08-26-2024 Nucleated RBC/100 WBC (Bld) [Ratio] 0 % 0-5 [facility] Platelet countOrdered By: Garrick Bhatt on 08-26-2024 Platelets (Bld) [#/Vol] 196 10*3/uL 150-450 [facility] RBC Auto (Bld) [#/Vol]Ordere d By: Renard Burgos on 08-26-2024 RBC (Bld) [#/Vol] 4.64 10*6/uL 4.6-6.2 [facility] White blood cell (WBC) count Ordered By: Renard Burgos on 08-26-2024 WBC (Bld) [#/Vol] 8.6 10*3/uL 4.4-11.0 [facility] Anion gap in Serum or Plasma Ordered By: Renard Burgos on 08-23-2024 Anion gap [Moles/Vol] 10 mmol/L 5-15 [facility] BUN/creatinine ratioOrdered By: Renard Burgos on 08-23-2024 Urea nitrogen/Creatinine [Mass ratio] 21.4 mg/mg High 10-20 [facility] Bilirubin, totalOrdered By: Renard Burgos on 08-23-2024 Bilirubin [Mass/Vol] 0.35 mg/dL 0.00-1.30 [facility] CBC-Complete Blood Cnt No Di ffon 08-23-2024 Erythrocyte distribution width (RBC) [Ratio] 12.7 % Normal 11.6-14.6 [facility] Comment on above: Order Comment: 109.1 Performed By: #### L 500.4050, L500.4100, L100.0500 ####[facility] [address] [place], [place], [id number] Hematocrit (Bld) [Volume fraction] 42.2 % Normal 40-54 [facility] Comment on above: Order Comment: 109.1 Performed By: #### L 500.4050, L500.4100, L100.0500 ####[facility] [address] [place], [address] Hemoglobin (Bld) [Mass/Vol] 14.0 g/dL Normal 13.0-16.5 [facility] Comment on above: Order Comment: 109.1 Performed By: #### L 500.4050, L500.4100, L100.0500 ####[facility] [address] [place], [address] MCH (RBC) [Entitic mass] 30.0 pg Normal 27.0-32.0 [facility] Comment on above: Order Comment: 109.1 Performed By: #### L 500.4050, L500.4100, L100.0500 ####[facility] [address] [place], [address] MCHC (RBC) [Mass/Vol] 33.2 g/dL Normal 32-36 [facility] Comment on above: Order Comment: 109.1 Performed By: #### L 500.4050, L500.4100, L100.0500 ####[facility] [address] [place], [address] MCV (RBC) [Entitic vol] 90.6 fL Normal 80-94 [facility] Comment on above: Order Comment: 109.1 Performed By: #### L 500.4050, L500.4100, L100.0500 ####[facility] [address] [place], [address] Platelet mean volume (Bld) [Entitic vol] 11.3 fL Normal 6.2-12.0 [facility] Comment on above: Order Comment: 109.1 Performed By: #### L 500.4050, L500.4100, L100.0500 ####[facility] [address] [place], [address] Platelets (Bld) [#/Vol] 184 10*3/uL Normal 150-450 [facility] Comment on above: Order Comment: 109.1 Performed By: #### L 500.4050, L500.4100, L100.0500 ####[facility] [address] [place], [address] RBC (Bld) [#/Vol] 4.66 10*6/uL Normal 4.6-6.2 [facility] Comment on above: Order Comment: 109.1 Performed By: #### L 500.4050, L500.4100, L100.0500 ####[facility] [facility] [address] [place], [address] RDW SD 41.8 fl Normal 35.1-43.9 [facility] Comment on above: Order Comment: 109.1 Performed By: #### L 500.4050, L500.4100, L100.0500 ####[facility] [address] [place], [address] WBC (Bld) [#/Vol] 8.6 10*3/uL Normal 4.4-11.0 [facility] Comment on above: Order Comment: 109.1 Performed By: #### L 500.4050, L500.4100, L100.0500 ####[facility] [address] [place], [address] Calculated very low density lipoprotein (VLDL) cholesterol measurementOrdered By: Renard Burgos on 08-23-2024 Calculated very low density lipoprotein (VLDL) cholesterol measurement 40 mg/dL 5-40 [facility] Carbon dioxide, total [Moles /volume] in Central venous bloodOrdered By: Renard Burgos on 08-23-2024 CO2 [Moles/Vol] 24.9 mmol/L 21.0-32.0 [facility] Chloride assayOrdered By: Garrick Bhatt on 08-23-2024 Chloride [Moles/Vol] 106 mmol/L 98-108 [facility] Comprehensive Metabolic Prof ilon 08-23-2024 Albumin [Mass/Vol] 3.4 g/dL Normal 3.4-4.8 [facility] Comment on above: Order Comment: 109.1 Performed By: #### L 500.4050, L500.4100, L100.0500 ####[facility] [address] [place], [address] Albumin/Globulin [Mass ratio] 1.4 {ratio} Normal 0.9-2.4 [facility] Comment on above: Order Comment: 109.1 Performed By: #### L 500.4050, L500.4100, L100.0500 ####[facility] [address] [place], [address] ALK PHOS 101 U/L Normal 40-129 [facility] Comment on above: Order Comment: 109.1 Performed By: #### L 500.4050, L500.4100, L100.0500 ####[facility] [address] [place], [address] ALT [Catalytic activity/Vol] 13 U/L Normal <=46 [facility] Comment on above: Order Comment: 109.1 Performed By: #### L 500.4050, L500.4100, L100.0500 ####[facility] [address] [place], [address] AST [Catalytic activity/Vol] 17 U/L Normal <=37 [facility] Comment on above: Order Comment: 109.1 Performed By: #### L 500.4050, L500.4100, L100.0500 ####[facility] [address] [place], [address] Bilirubin [Mass/Vol] 0.35 mg/dL Normal 0.00-1.30 [facility] Comment on above: Order Comment: 109.1 Performed By: #### L 500.4050, L500.4100, L100.0500 ####[facility] [address] [place], [address] BUN/CRE 21.4 RATIO High 10-20 [facility] Comment on above: Order Comment: 109.1 Performed By: #### L 500.4050, L500.4100, L100.0500 ####[facility] [address] [place], [address] Calcium [Mass/Vol] 8.2 mg/dL Normal 7.6-11.0 [facility] Comment on above: Order Comment: 109.1 Performed By: #### L 500.4050, L500.4100, L100.0500 ####[facility] [address] [place], [address] Chloride [Moles/Vol] 106 mmol/L Normal 98-108 [facility] Comment on above: Order Comment: 109.1 Performed By: #### L 500.4050, L500.4100, L100.0500 ####[facility] [address] [place], [address] CO2 [Moles/Vol] 24.9 mmol/L Normal 21.0-32.0 [facility] Comment on above: Order Comment: 109.1 Performed By: #### L 500.4050, L500.4100, L100.0500 ####[facility] [address] [place], [address] Creatinine [Mass/Vol] 0.63 mg/dL Low 0.70-1.20 [facility] Comment on above: Order Comment: 109.1 Performed By: #### L 500.4050, L500.4100, L100.0500 ####[facility] [address] [place], [address] GAP 10 Normal 5-15 [facility] Comment on above: Order Comment: 109.1 Performed By: #### L 500.4050, L500.4100, L100.0500 ####[facility] [address] [place], [address] GFR/1.73 sq M.predicted among non-blacks MDRD (S/P/Bld) [Vol rate/Area] 104 mL/min/{1.73_m2} Normal >60 [facility] Comment on above: Order Comment: 109.1 Result Comment: mL/m in/1.73m2 CKD-EPI Creatinine Equation (2020) Performed By: #### L 500.4050, L500.4100, L100.0500 ####[facility] [address] [place], [address] Globulin (S) [Mass/Vol] 2.3 g/dL Normal 2.2-4.2 [facility] Comment on above: Order Comment: 109.1 Performed By: #### L 500.4050, L500.4100, L100.0500 ####[facility] [address] [place], [address] Glucose [Mass/Vol] 116 mg/dL High 70-99 [facility] Comment on above: Order Comment: 109.1 Performed By: #### L 500.4050, L500.4100, L100.0500 ####[facility] [address] [place], [address] Potassium [Moles/Vol] 3.8 mmol/L Normal 3.3-5.1 [facility] Comment on above: Order Comment: 109.1 Performed By: #### L 500.4050, L500.4100, L100.0500 ####[facility] [address] [place], [address] Sodium [Moles/Vol] 141 mmol/L Normal 133-145 [facility] Comment on above: Order Comment: 109.1 Performed By: #### L 500.4050, L500.4100, L100.0500 ####[facility] [address] [place], [address] T PROT 5.7 g/dL Low 5.9-8.4 [facility] Comment on above: Order Comment: 109.1 Performed By: #### L 500.4050, L500.4100, L100.0500 ####[facility] [address] [place], [address] Urea nitrogen [Mass/Vol] 14 mg/dL Normal 4-19 [facility] Comment on above: Order Comment: 109.1 Performed By: #### L 500.4050, L500.4100, L100.0500 ####[facility] [address] [place], [address] Erythrocyte distribution wid th ratioOrdered By: Renard Burgos on 08-23-2024 Erythrocyte distribution width (RBC) [Ratio] 12.7 % 11.6-14.6 [facility] Erythrocyte distribution wid th standard deviationOrdered By: Renard Burgos on 08-23-2024 Erythrocyte distribution width (RBC) [Ratio] 41.8 fl 35.1-43.9 [facility] Glomerular filtration rate ( GFR) estimation/1.73 sq m using serum, plasma, or whole bOrdered By: Renard Burgos on 08-23-2024 GFR/1.73 sq M.predicted among non-blacks MDRD (S/P/Bld) [Vol rate/Area] 104 mL/min/{1.73_m2} >60 [facility] Comment on above: mL/min/1.73m2 CKD-EP I Creatinine Equation (2020) Hematocrit Auto (Bld) [Volum e fraction]Ordered By: Renard Burgos on 08-23-2024 Hematocrit (Bld) [Volume fraction] 42.2 % 40-54 [facility] Hemoglobin measurementOrdere d By: Renard Burgos on 08-23-2024 Hemoglobin (Bld) [Mass/Vol] 14.0 g/dL 13.0-16.5 [facility] LDL calc ser/plasOrdered By: Renard Burgos on 08-23-2024 Cholesterol in LDL [Mass/Vol] 62 mg/dL [facility] Comment on above: Thbmjbihig=107-764 m g/dL & Higher Sftz=681 mg/dL or greater Laboratory - Chemistry and C hemistry - challengeOrdered By: Renard Burgos on 08-23-2024 AST [Catalytic activity/Vol] 17 U/L <38 [facility] Lipid Profileon 08-23-2024 CHOL:HDL 5.32 Normal [facility] Comment on above: Order Comment: 109.1 Performed By: #### L 500.4050, L500.4100, L100.0500 ####[facility] [address] [place], [address] Cholesterol [Mass/Vol] 125 mg/dL Normal <=200 [facility] Comment on above: Order Comment: 109.1 Result Comment: Chol esterol level, Desirable <200 mg/dLBorderline high cholesterol 200-239 mg/dLHigh cholesterol >=240 mg/dLRecommendations of the NCEP Adult Treatment Panel for thefollowing risk-cutoff thresholds for the [place] Americanpulation. Performed By: #### L 500.4050, L500.4100, L100.0500 ####[facility] [address] [place], [address] Cholesterol in HDL [Mass/Vol] 24 mg/dL Low [facility] Comment on above: Order Comment: 109.1 Result Comment: Lucy onal Cholesterol Education Program (NCEP) guidelines:<40 mg/dL: Low HDL-cholesterol (major risk factor for CHD)>= 60 mg/dL: High HDL-cholesterol (negative risk factor forCHD)HDL-cholesterol is affected by a number of factors, e.g.smoking, exercise, hormones, sex and age. Performed By: #### L 500.4050, L500.4100, L100.0500 ####[facility] [address] [place], [address] Cholesterol in LDL [Mass/Vol] 62 mg/dL Normal [facility] Comment on above: Order Comment: 109.1 Result Comment: Bord azbyrh=817-464 mg/dL Higher Aypm=777 mg/dL or greater Performed By: #### L 500.4050, L500.4100, L100.0500 ####[facility] [address] [place], [address] Cholesterol in VLDL [Mass/Vol] 40 mg/dL Normal 5-40 [facility] Comment on above: Order Comment: 109.1 Performed By: #### L 500.4050, L500.4100, L100.0500 ####[facility] [address] [place], [address] Triglyceride [Mass/Vol] 198 mg/dL Normal [facility] Comment on above: Order Comment: 109.1 Result Comment: The drugs N-Acetylcysteine and Metamizole may falselydepress this assay.Normal range: <150 mg/dLBorderline High: 150-199 mg/dLHigh: 200-499 mg/dLVery High: >500 mg/dL Performed By: #### L 500.4050, L500.4100, L100.0500 ####[facility] [address] [place], [address] MCV (mean corpuscular volume ) determinationOrdered By: Renard Burgos on 08-23-2024 MCV (RBC) [Entitic vol] 90.6 fL 80-94 [facility] Mean corpuscular hemoglobin (MCH) determinationOrdered By: Renard Burgos on 08-23-2024 MCH (RBC) [Entitic mass] 30.0 pg 27.0-32.0 [facility] Mean corpuscular hemoglobin concentration (MCHC) determinationOrdered By: Renard Burgos on 08-23-2024 MCHC (RBC) [Mass/Vol] 33.2 g/dL 32-36 [facility] Mean platelet volume determi nationOrdered By: Renard Burgos on 08-23-2024 Platelet mean volume (Bld) [Entitic vol] 11.3 fL 6.2-12.0 [facility] Platelet countOrdered By: Garrick Bhatt on 08-23-2024 Platelets (Bld) [#/Vol] 184 10*3/uL 150-450 [facility] Potassium measurement (mass/ volume)Ordered By: Renard Burgos on 08-23-2024 Potassium (Unsp spec) [Mass/Vol] 3.8 mmol/L 3.3-5.1 [facility] RBC Auto (Bld) [#/Vol]Ordere d By: Renard Burgos on 08-23-2024 RBC (Bld) [#/Vol] 4.66 10*6/uL 4.6-6.2 [facility] Screening total cholesterol/ high density lipoprotein (HDL) cholesterol ratioOrdered By: Renard Burgos on 08-23-2024 Cholesterol.total/Cecilia sterol in HDL [Mass ratio] 5.32 {ratio} [facility] Serum creatinine measurement (mass/volume)Ordered By: Renard Burgos on 08-23-2024 Creatinine [Mass/Vol] 0.63 mg/dL Low 0.70-1.20 [facility] Serum globulin measurementOr dered By: Renard Burgos on 08-23-2024 Globulin (S) [Mass/Vol] 2.3 g/dL 2.2-4.2 [facility] Serum glucose measurement (m ass/volume)Ordered By: Renard Burgos on 08-23-2024 Glucose [Mass/Vol] 116 mg/dL High 70-99 [facility] Serum or plasma alanine kay otransferase (ALT) measurementOrdered By: Renard Burgos on 08-23-2024 ALT [Catalytic activity/Vol] 13 U/L <47 [facility] Serum or plasma albumin gordy urement (mass/volume)Ordered By: Renard Burgos on 08-23-2024 Albumin [Mass/Vol] 3.4 g/dL 3.4-4.8 [facility] Serum or plasma albumin/glob ulin mass ratioOrdered By: Renard Burgos on 08-23-2024 Albumin/Globulin [Mass ratio] 1.4 {ratio} 0.9-2.4 [facility] Serum or plasma alkaline trace sphatase measurementOrdered By: Renard Burgos on 08-23-2024 ALP [Catalytic activity/Vol] 101 U/L 40-129 [facility] Serum or plasma calcium gordy urement (mass/volume)Ordered By: Renard Burgos on 08-23-2024 Calcium [Mass/Vol] 8.2 mg/dL 7.6-11.0 [facility] Serum or plasma cholesterol in HDL measurement (mass/volume)Ordered By: Renard Burgos on 08-23-2024 Cholesterol in HDL [Mass/Vol] 24 mg/dL Low >40 [facility] Comment on above: National Cholesterol Education Program (NCEP) guidelines:<40 mg/dL: Low HDL-cholesterol (major risk factor for CHD)>= 60 mg/dL: High HDL-cholesterol (negative risk factor for CHD)HDL-cholesterol is affected by a number of factors, e.g. smoking, exercise, hormones, sex and age. Serum or plasma cholesterol measurement (mass/volume)Ordered By: Renard Burgos on 08-23-2024 Cholesterol [Mass/Vol] 125 mg/dL <201 [facility] Comment on above: Cholesterol level, D esirable <200 mg/dLBorderline high cholesterol 200-239 mg/dLHigh cholesterol >=240 mg/dLRecommendations of the NCEP Adult Treatment Panel for the following risk-cutoff thresholds for the [place] population. Serum or plasma urea nitroge n measurement (mass/volume)Ordered By: Renard Burgos on 08-23-2024 Urea nitrogen [Mass/Vol] 14 mg/dL 4-19 [facility] Sodium levelOrdered By: Lamine Burgos on 08-23-2024 Sodium [Moles/Vol] 141 mmol/L 133-145 [facility] Total proteinOrdered By: Lyubov Burgos on 08-23-2024 Protein [Mass/Vol] 5.7 g/dL Low 5.9-8.4 [facility] Triglycerides measurementOrd ered By: Renard Burgos on 08-23-2024 Triglyceride [Mass/Vol] 198 mg/dL <199 [facility] Comment on above: The drugs N-Acetylcy steine and Metamizole may falsely depress this assay. Normal range: <150 mg/dLBorderline High: 150-199 mg/dLHigh: 200-499 mg/dLVery High: >500 mg/dL White blood cell (WBC) count Ordered By: Renard Burgos on 08-23-2024 WBC (Bld) [#/Vol] 8.6 10*3/uL 4.4-11.0 [facility] Absolute lymphocyte countOrd ered By: Renard Burgos on 08-19-2024 Lymphocytes Auto (Unsp spec) [#/Vol] 1.97 10*3/uL 0.83-4.51 [facility] Absolute neutrophil countOrd ered By: Renard Burgos on 08-19-2024 Neutrophils (Bld) [#/Vol] 5.0 10*3/uL 2.0-7.7 [facility] Automated lymphocyte count a s percentage of total leukocytesOrdered By: Renard Burgos on 08-19-2024 Lymphocytes/100 WBC Auto (Unsp spec) 25.4 % 19-41 [facility] Basophil percentageOrdered B y: Renard Burgos on 08-19-2024 Basophils/100 WBC (Bld) 0.5 % 0-1 [facility] CBC W/Diff, Automatedon 07-31 Absolute Lymph 1.97 X10 3/uL Normal 0.83-4.51 [facility] Comment on above: Order Comment: 109 Performed By: #### L 100.0100 ####[facility] [address] [facility] [place], [address] Absolute Neut 5.0 X10 3/uL Normal 2.0-7.7 [facility] Comment on above: Order Comment: 109 Performed By: #### L 100.0100 ####[facility] [address] [place], [address] Basophils/100 WBC (Bld) 0.5 % Normal 0-1 [facility] Comment on above: Order Comment: 109 Performed By: #### L 100.0100 ####[facility] [address] [place], [address] Eosinophils/100 WBC (Bld) 1.0 % Normal 0-5 [facility] Comment on above: Order Comment: 109 Performed By: #### L 100.0100 ####[facility] [address] [place], [address] Erythrocyte distribution width (RBC) [Ratio] 12.7 % Normal 11.6-14.6 [facility] Comment on above: Order Comment: 109 Performed By: #### L 100.0100 ####[facility] [address] [place], [address] Hematocrit (Bld) [Volume fraction] 41.0 % Normal 40-54 [facility] Comment on above: Order Comment: 109 Performed By: #### L 100.0100 ####[facility] [address] [place], [address] Hemoglobin (Bld) [Mass/Vol] 13.6 g/dL Normal 13.0-16.5 [facility] Comment on above: Order Comment: 109 Performed By: #### L 100.0100 ####[facility] [address] [place], [address] IG% 0.400 Normal 0.0-0.9 [facility] Comment on above: Order Comment: 109 Result Comment: IG% - Immature Granulocytes (promyelocytes, myelocytes andmetamyelocytes) > 1% indicates that a LEFT SHIFT is Present. Performed By: #### L 100.0100 ####[facility] [address] [place], [address] Lymphocytes/100 WBC (Bld) 25.4 % Normal 19-41 [facility] Comment on above: Order Comment: 109 Performed By: #### L 100.0100 ####[facility] [address] [place], [address] MCH (RBC) [Entitic mass] 30.2 pg Normal 27.0-32.0 [facility] Comment on above: Order Comment: 109 Performed By: #### L 100.0100 ####[facility] [address] [place], [address] MCHC (RBC) [Mass/Vol] 33.2 g/dL Normal 32-36 [facility] Comment on above: Order Comment: 109 Performed By: #### L 100.0100 ####[facility] [address] [place], [address] MCV (RBC) [Entitic vol] 91.1 fL Normal 80-94 [facility] Comment on above: Order Comment: 109 Performed By: #### L 100.0100 ####[facility] [address] [place], [address] Monocytes/100 WBC (Bld) 8.2 % Normal 0-10 [facility] Comment on above: Order Comment: 109 Performed By: #### L 100.0100 ####[facility] [address] [place], [address] Neutrophils/100 WBC (Bld) 64.5 % Normal 47-70 [facility] Comment on above: Order Comment: 109 Performed By: #### L 100.0100 ####[facility] [address] [place], [address] Nucleated RBC (Bld) [#/Vol] 0 10*3/uL Normal 0-5 [facility] Comment on above: Order Comment: 109 Performed By: #### L 100.0100 ####[facility] [address] [place], [address] Platelet mean volume (Bld) [Entitic vol] 11.1 fL Normal 6.2-12.0 [facility] Comment on above: Order Comment: 109 Performed By: #### L 100.0100 ####[facility] [address] [place], [address] Platelets (Bld) [#/Vol] 207 10*3/uL Normal 150-450 [facility] Comment on above: Order Comment: 109 Performed By: #### L 100.0100 ####[facility] [address] [place], [address] RBC (Bld) [#/Vol] 4.50 10*6/uL Low 4.6-6.2 [facility] Comment on above: Order Comment: 109 Performed By: #### L 100.0100 ####[facility] [address] [place], [address] RDW SD 42.0 fl Normal 35.1-43.9 [facility] Comment on above: Order Comment: 109 Performed By: #### L 100.0100 ####[facility] [address] [place], [address] WBC (Bld) [#/Vol] 7.8 10*3/uL Normal 4.4-11.0 [facility] Comment on above: Order Comment: 109 Performed By: #### L 100.0100 ####[facility] [address] [place], [address] Eosinophil percentageOrdered By: Renard Burgos on 08-19-2024 Eosinophils/100 WBC (Bld) 1.0 % 0-5 [facility] Erythrocyte distribution wid th ratioOrdered By: Renard Burgos on 08-19-2024 Erythrocyte distribution width (RBC) [Ratio] 12.7 % 11.6-14.6 [facility] Erythrocyte distribution wid th standard deviationOrdered By: Renard Burgos on 08-19-2024 Erythrocyte distribution width (RBC) [Ratio] 42.0 fl 35.1-43.9 [facility] Hematocrit Auto (Bld) [Volum e fraction]Ordered By: Renard Burgos on 08-19-2024 Hematocrit (Bld) [Volume fraction] 41.0 % 40-54 [facility] Hemoglobin measurementOrdere d By: Renard Burgos on 08-19-2024 Hemoglobin (Bld) [Mass/Vol] 13.6 g/dL 13.0-16.5 [facility] Immature granulocytes/100 WB C Auto (Bld)Ordered By: Renard Burgos on 08-19-2024 Immature granulocytes/100 WBC (Bld) 0.400 % 0.0-0.9 [facility] Comment on above: IG% - Immature Granu locytes (promyelocytes, myelocytes and metamyelocytes) > 1% indicates that a LEFT SHIFT is Present. MCV (mean corpuscular volume ) determinationOrdered By: Renard Burgos on 08-19-2024 MCV (RBC) [Entitic vol] 91.1 fL 80-94 [facility] Mean corpuscular hemoglobin (MCH) determinationOrdered By: Renard Burgos on 08-19-2024 MCH (RBC) [Entitic mass] 30.2 pg 27.0-32.0 [facility] Mean corpuscular hemoglobin concentration (MCHC) determinationOrdered By: Renard Burgos on 08-19-2024 MCHC (RBC) [Mass/Vol] 33.2 g/dL 32-36 [facility] Mean platelet volume determi nationOrdered By: Renard Burgos on 08-19-2024 Platelet mean volume (Bld) [Entitic vol] 11.1 fL 6.2-12.0 [facility] Monocyte percentageOrdered B y: Renard Burgos on 08-19-2024 Monocytes/100 WBC (Bld) 8.2 % 0-10 [facility] Neutrophil percentageOrdered By: Renard Burgos on 08-19-2024 Neutrophils/100 WBC (Bld) 64.5 % 47-70 [facility] Nucleated red blood cell per centageOrdered By: Renard Burgos on 08-19-2024 Nucleated RBC/100 WBC (Bld) [Ratio] 0 % 0-5 [facility] Platelet countOrdered By: Garrick Bhatt on 08-19-2024 Platelets (Bld) [#/Vol] 207 10*3/uL 150-450 [facility] RBC Auto (Bld) [#/Vol]Ordere d By: Renard Burgos on 08-19-2024 RBC (Bld) [#/Vol] 4.50 10*6/uL Low 4.6-6.2 [facility] White blood cell (WBC) count Ordered By: Renard Burgos on 08-19-2024 WBC (Bld) [#/Vol] 7.8 10*3/uL 4.4-11.0 [facility] Absolute lymphocyte countOrd ered By: Renard Burgos on 08-12-2024 Lymphocytes Auto (Unsp spec) [#/Vol] 2.09 10*3/uL 0.83-4.51 [facility] Absolute neutrophil countOrd ered By: Renard Burgos on 08-12-2024 Neutrophils (Bld) [#/Vol] 5.0 10*3/uL 2.0-7.7 [facility] Automated lymphocyte count a s percentage of total leukocytesOrdered By: Renard Burgos on 08-12-2024 Lymphocytes/100 WBC Auto (Unsp spec) 27.0 % 19-41 [facility] [facility] Basophil percentageOrdered B y: Renard Burgos on 08-12-2024 Basophils/100 WBC (Bld) 0.5 % 0-1 [facility] CBC W/Diff, Automatedon 07-30 Absolute Lymph 2.09 X10 3/uL Normal 0.83-4.51 [facility] Comment on above: Order Comment: 109.1 Performed By: #### L 100.0100 ####[facility] [address] [place], [address] Absolute Neut 5.0 X10 3/uL Normal 2.0-7.7 [facility] Comment on above: Order Comment: 109.1 Performed By: #### L 100.0100 ####[facility] [address] [place], [address] Basophils/100 WBC (Bld) 0.5 % Normal 0-1 [facility] Comment on above: Order Comment: 109.1 Performed By: #### L 100.0100 ####[facility] [address] [place], [address] Eosinophils/100 WBC (Bld) 0.9 % Normal 0-5 [facility] Comment on above: Order Comment: 109.1 Performed By: #### L 100.0100 ####[facility] [address] [place], [address] Erythrocyte distribution width (RBC) [Ratio] 12.7 % Normal 11.6-14.6 [facility] Comment on above: Order Comment: 109.1 Performed By: #### L 100.0100 ####[facility] [address] [place], [address] Hematocrit (Bld) [Volume fraction] 41.9 % Normal 40-54 [facility] Comment on above: Order Comment: 109.1 Performed By: #### L 100.0100 ####[facility] [address] [place], [address] Hemoglobin (Bld) [Mass/Vol] 14.1 g/dL Normal 13.0-16.5 [facility] Comment on above: Order Comment: 109.1 Performed By: #### L 100.0100 ####[facility] [address] [place], [address] IG% 0.300 Normal 0.0-0.9 [facility] Comment on above: Order Comment: 109.1 Result Comment: IG% - Immature Granulocytes (promyelocytes, myelocytes andmetamyelocytes) > 1% indicates that a LEFT SHIFT is Present. Performed By: #### L 100.0100 ####[facility] [address] [place], [address] Lymphocytes/100 WBC (Bld) 27.0 % Normal 19-41 [facility] Comment on above: Order Comment: 109.1 Performed By: #### L 100.0100 ####[facility] [address] [place], [address] MCH (RBC) [Entitic mass] 30.3 pg Normal 27.0-32.0 [facility] Comment on above: Order Comment: 109.1 Performed By: #### L 100.0100 ####[facility] [address] [place], [address] MCHC (RBC) [Mass/Vol] 33.7 g/dL Normal 32-36 [facility] Comment on above: Order Comment: 109.1 Performed By: #### L 100.0100 ####[facility] [address] [place], [address] MCV (RBC) [Entitic vol] 90.1 fL Normal 80-94 [facility] Comment on above: Order Comment: 109.1 Performed By: #### L 100.0100 ####[facility] [address] [place], [address] Monocytes/100 WBC (Bld) 7.1 % Normal 0-10 [facility] Comment on above: Order Comment: 109.1 Performed By: #### L 100.0100 ####[facility] [address] [place], [address] Neutrophils/100 WBC (Bld) 64.2 % Normal 47-70 [facility] Comment on above: Order Comment: 109.1 Performed By: #### L 100.0100 ####[facility] [address] [place], [address] Nucleated RBC (Bld) [#/Vol] 0 10*3/uL Normal 0-5 [facility] Comment on above: Order Comment: 109.1 Performed By: #### L 100.0100 ####[facility] [address] [place], [address] Platelet mean volume (Bld) [Entitic vol] 11.2 fL Normal 6.2-12.0 [facility] Comment on above: Order Comment: 109.1 Performed By: #### L 100.0100 ####[facility] [address] [place], [address] Platelets (Bld) [#/Vol] 188 10*3/uL Normal 150-450 [facility] Comment on above: Order Comment: 109.1 Performed By: #### L 100.0100 ####[facility] [address] [place], [address] RBC (Bld) [#/Vol] 4.65 10*6/uL Normal 4.6-6.2 [facility] Comment on above: Order Comment: 109.1 Performed By: #### L 100.0100 ####[facility] [address] [place], [address] RDW SD 41.6 fl Normal 35.1-43.9 [facility] Comment on above: Order Comment: 109.1 Performed By: #### L 100.0100 ####[facility] [address] [place], [address] WBC (Bld) [#/Vol] 7.8 10*3/uL Normal 4.4-11.0 [facility] Comment on above: Order Comment: 109.1 Performed By: #### L 100.0100 ####[facility] [address] [place], [address] Eosinophil percentageOrdered By: Renard Burgos on 08-12-2024 Eosinophils/100 WBC (Bld) 0.9 % 0-5 [facility] Erythrocyte distribution wid th (RBC) [Ratio]Ordered By: Renard Burgos on 08-12-2024 Erythrocyte distribution width (RBC) [Entitic vol] 41.6 fL 35.1-43.9 [facility] Erythrocyte distribution wid th ratioOrdered By: Renard Burgos on 08-12-2024 Erythrocyte distribution width (RBC) [Ratio] 12.7 % 11.6-14.6 [facility] Erythrocyte distribution wid th standard deviationOrdered By: Renard Burgos on 08-12-2024 Erythrocyte distribution width (RBC) [Ratio] 41.6 fl 35.1-43.9 [facility] Hematocrit Auto (Bld) [Volum e fraction]Ordered By: Renard Burgos on 08-12-2024 Hematocrit (Bld) [Volume fraction] 41.9 % 40-54 [facility] Hemoglobin measurementOrdere d By: Renard Burgos on 08-12-2024 Hemoglobin (Bld) [Mass/Vol] 14.1 g/dL 13.0-16.5 [facility] Immature granulocytes/100 WB C Auto (Bld)Ordered By: Renard Burgos on 08-12-2024 Immature granulocytes/100 WBC (Bld) 0.300 % 0.0-0.9 [facility] Comment on above: IG% - Immature Granu locytes (promyelocytes, myelocytes and metamyelocytes) > 1% indicates that a LEFT SHIFT is Present. Lymphocytes Auto (Unsp spec) [#/Vol]Ordered By: Renard Burgos on 08-12-2024 Lymphocytes (Bld) [#/Vol] 2.09 10*3/uL 0.83-4.51 [facility] Lymphocytes/100 WBC Auto (Un sp spec)Ordered By: Renard Burgos on 08-12-2024 Lymphocytes/100 WBC (Bld) 27.0 % 19-41 [facility] MCV (mean corpuscular volume ) determinationOrdered By: Renard Burgos on 08-12-2024 MCV (RBC) [Entitic vol] 90.1 fL 80-94 [facility] Mean corpuscular hemoglobin (MCH) determinationOrdered By: Renard Burgos on 08-12-2024 MCH (RBC) [Entitic mass] 30.3 pg 27.0-32.0 [facility] Mean corpuscular hemoglobin concentration (MCHC) determinationOrdered By: Renard Burgos on 08-12-2024 MCHC (RBC) [Mass/Vol] 33.7 g/dL 32-36 [facility] Mean platelet volume determi nationOrdered By: Renard Burgos on 08-12-2024 Platelet mean volume (Bld) [Entitic vol] 11.2 fL 6.2-12.0 [facility] Monocyte percentageOrdered B y: Renard Burgos on 08-12-2024 Monocytes/100 WBC (Bld) 7.1 % 0-10 [facility] Neutrophil percentageOrdered By: Renard Burgos on 08-12-2024 Neutrophils/100 WBC (Bld) 64.2 % 47-70 [facility] Nucleated red blood cell per centageOrdered By: Renard Burgos on 08-12-2024 Nucleated RBC/100 WBC (Bld) [Ratio] 0 % 0-5 [facility] Platelet countOrdered By: Garrick Bhatt on 08-12-2024 Platelets (Bld) [#/Vol] 188 10*3/uL 150-450 [facility] RBC Auto (Bld) [#/Vol]Ordere d By: Renard Burgos on 08-12-2024 RBC (Bld) [#/Vol] 4.65 10*6/uL 4.6-6.2 [facility] White blood cell (WBC) count Ordered By: Renard Burgos on 08-12-2024 WBC (Bld) [#/Vol] 7.8 10*3/uL 4.4-11.0 [facility] Absolute lymphocyte countOrd ered By: Renard Burgos on 08-05-2024 Lymphocytes Auto (Unsp spec) [#/Vol] 2.31 10*3/uL 0.83-4.51 [facility] Absolute neutrophil countOrd ered By: Renard Burgos on 08-05-2024 Neutrophils (Bld) [#/Vol] 5.4 10*3/uL 2.0-7.7 [facility] Automated lymphocyte count a s percentage of total leukocytesOrdered By: Renard Burgos on 08-05-2024 Lymphocytes/100 WBC Auto (Unsp spec) 26.9 % 19-41 [facility] Basophil percentageOrdered B y: Renard Burgos on 08-05-2024 Basophils/100 WBC (Bld) 0.6 % 0-1 [facility] CBC W/Diff, Automatedon Absolute Lymph 2.31 X10 3/uL Normal 0.83-4.51 [facility] Comment on above: Order Comment: 109.1 Performed By: #### L 100.0100 ####[facility] [address] [place], [place], [address] Absolute Neut 5.4 X10 3/uL Normal 2.0-7.7 [facility] Comment on above: Order Comment: 109.1 Performed By: #### L 100.0100 ####[facility] [address] [place], [address] Basophils/100 WBC (Bld) 0.6 % Normal 0-1 [facility] Comment on above: Order Comment: 109.1 Performed By: #### L 100.0100 ####[facility] [address] [place], [address] Eosinophils/100 WBC (Bld) 0.8 % Normal 0-5 [facility] Comment on above: Order Comment: 109.1 Performed By: #### L 100.0100 ####[facility] [address] [place], [address] Erythrocyte distribution width (RBC) [Ratio] 12.7 % Normal 11.6-14.6 [facility] Comment on above: Order Comment: 109.1 Performed By: #### L 100.0100 ####[facility] [address] [place], [address] Hematocrit (Bld) [Volume fraction] 41.6 % Normal 40-54 [facility] Comment on above: Order Comment: 109.1 Performed By: #### L 100.0100 ####[facility] [address] [place], [address] Hemoglobin (Bld) [Mass/Vol] 13.7 g/dL Normal 13.0-16.5 [facility] Comment on above: Order Comment: 109.1 Performed By: #### L 100.0100 ####[facility] [address] [place], [address] IG% 0.300 Normal 0.0-0.9 [facility] Comment on above: Order Comment: 109.1 Result Comment: IG% - Immature Granulocytes (promyelocytes, myelocytes andmetamyelocytes) > 1% indicates that a LEFT SHIFT is Present. Performed By: #### L 100.0100 ####[facility] [address] [place], [address] Lymphocytes/100 WBC (Bld) 26.9 % Normal 19-41 [facility] Comment on above: Order Comment: 109.1 Performed By: #### L 100.0100 ####[facility] [address] [place], [address] MCH (RBC) [Entitic mass] 30.1 pg Normal 27.0-32.0 [facility] Comment on above: Order Comment: 109.1 Performed By: #### L 100.0100 ####[facility] [address] [place], [address] MCHC (RBC) [Mass/Vol] 32.9 g/dL Normal 32-36 [facility] Comment on above: Order Comment: 109.1 Performed By: #### L 100.0100 ####[facility] [address] [place], [address] MCV (RBC) [Entitic vol] 91.4 fL Normal 80-94 [facility] Comment on above: Order Comment: 109.1 Performed By: #### L 100.0100 ####[facility] [address] [place], [address] Monocytes/100 WBC (Bld) 8.3 % Normal 0-10 [facility] Comment on above: Order Comment: 109.1 Performed By: #### L 100.0100 ####[facility] [address] [place], [address] Neutrophils/100 WBC (Bld) 63.1 % Normal 47-70 [facility] Comment on above: Order Comment: 109.1 Performed By: #### L 100.0100 ####[facility] [address] [place], [address] Nucleated RBC (Bld) [#/Vol] 0 10*3/uL Normal 0-5 [facility] Comment on above: Order Comment: 109.1 Performed By: #### L 100.0100 ####[facility] [address] [place], [address] Platelet mean volume (Bld) [Entitic vol] 11.1 fL Normal 6.2-12.0 [facility] Comment on above: Order Comment: 109.1 Performed By: #### L 100.0100 ####[facility] [address] [place], [address] Platelets (Bld) [#/Vol] 199 10*3/uL Normal 150-450 [facility] Comment on above: Order Comment: 109.1 Performed By: #### L 100.0100 ####[facility] [address] [place], [address] RBC (Bld) [#/Vol] 4.55 10*6/uL Low 4.6-6.2 [facility] Comment on above: Order Comment: 109.1 Performed By: #### L 100.0100 ####[facility] [address] [place], [address] RDW SD 42.5 fl Normal 35.1-43.9 [facility] Comment on above: Order Comment: 109.1 Performed By: #### L 100.0100 ####[facility] [address] [place], [address] WBC (Bld) [#/Vol] 8.6 10*3/uL Normal 4.4-11.0 [facility] Comment on above: Order Comment: 109.1 Performed By: #### L 100.0100 ####[facility] [address] [place], [address] Eosinophil percentageOrdered By: Renard Burgos on 08-05-2024 Eosinophils/100 WBC (Bld) 0.8 % 0-5 [facility] Erythrocyte distribution wid th (RBC) [Ratio]Ordered By: Renard Burgos on 08-05-2024 Erythrocyte distribution width (RBC) [Entitic vol] 42.5 fL 35.1-43.9 [facility] Erythrocyte distribution wid th ratioOrdered By: Renard Burgos on 08-05-2024 Erythrocyte distribution width (RBC) [Ratio] 12.7 % 11.6-14.6 [facility] Erythrocyte distribution wid th standard deviationOrdered By: Renard Burgos on 08-05-2024 Erythrocyte distribution width (RBC) [Ratio] 42.5 fl 35.1-43.9 [facility] Hematocrit Auto (Bld) [Volum e fraction]Ordered By: Renard Burgos on 08-05-2024 Hematocrit (Bld) [Volume fraction] 41.6 % 40-54 [facility] Hemoglobin measurementOrdere d By: Renard Burgos on 08-05-2024 Hemoglobin (Bld) [Mass/Vol] 13.7 g/dL 13.0-16.5 [facility] Immature granulocytes/100 WB C Auto (Bld)Ordered By: Renard Burgos on 08-05-2024 Immature granulocytes/100 WBC (Bld) 0.300 % 0.0-0.9 [facility] Comment on above: IG% - Immature Granu locytes (promyelocytes, myelocytes and metamyelocytes) > 1% indicates that a LEFT SHIFT is Present. Lymphocytes Auto (Unsp spec) [#/Vol]Ordered By: Renard Burgos on 08-05-2024 Lymphocytes (Bld) [#/Vol] 2.31 10*3/uL 0.83-4.51 [facility] Lymphocytes/100 WBC Auto (Un sp spec)Ordered By: Renard Burgos on 08-05-2024 Lymphocytes/100 WBC (Bld) 26.9 % 19-41 [facility] MCV (mean corpuscular volume ) determinationOrdered By: Renard Burgos on 08-05-2024 MCV (RBC) [Entitic vol] 91.4 fL 80-94 [facility] Mean corpuscular hemoglobin (MCH) determinationOrdered By: Renard Burgos on 08-05-2024 MCH (RBC) [Entitic mass] 30.1 pg 27.0-32.0 [facility] Mean corpuscular hemoglobin concentration (MCHC) determinationOrdered By: Renard Burgos on 08-05-2024 MCHC (RBC) [Mass/Vol] 32.9 g/dL 32-36 [facility] Mean platelet volume determi nationOrdered By: Renard Burgos on 08-05-2024 Platelet mean volume (Bld) [Entitic vol] 11.1 fL 6.2-12.0 [facility] Monocyte percentageOrdered B y: Renard Burgos on 08-05-2024 Monocytes/100 WBC (Bld) 8.3 % 0-10 [facility] Neutrophil percentageOrdered By: Renard Burgos on 08-05-2024 Neutrophils/100 WBC (Bld) 63.1 % 47-70 [facility] Nucleated red blood cell per centageOrdered By: Renard Burgos on 08-05-2024 Nucleated RBC/100 WBC (Bld) [Ratio] 0 % 0-5 [facility] Platelet countOrdered By: Garrick Bhatt on 08-05-2024 Platelets (Bld) [#/Vol] 199 10*3/uL 150-450 [facility] RBC Auto (Bld) [#/Vol]Ordere d By: Renard Burgos on 08-05-2024 RBC (Bld) [#/Vol] 4.55 10*6/uL Low 4.6-6.2 [facility] White blood cell (WBC) count Ordered By: Renard Burgos on 08-05-2024 WBC (Bld) [#/Vol] 8.6 10*3/uL 4.4-11.0 [facility] Absolute lymphocyte countOrd ered By: Renard Burgos on 07-29-2024 Lymphocytes Auto (Unsp spec) [#/Vol] 1.93 10*3/uL 0.83-4.51 [facility] Absolute neutrophil countOrd ered By: Renard Burgos on 07-29-2024 Neutrophils (Bld) [#/Vol] 6.8 10*3/uL 2.0-7.7 [facility] Automated lymphocyte count a s percentage of total leukocytesOrdered By: Renard Burgos on 07-29-2024 Lymphocytes/100 WBC Auto (Unsp spec) 20.2 % 19-41 [facility] Basophil percentageOrdered B y: Renard Burgos on 07-29-2024 Basophils/100 WBC (Bld) 0.5 % 0-1 [facility] CBC W/Diff, Automatedon 07-01 Absolute Lymph 1.93 X10 3/uL Normal 0.83-4.51 [facility] Comment on above: Order Comment: 109-1 Performed By: #### L 100.0100 ####[facility] [address] [place], [address] Absolute Neut 6.8 X10 3/uL Normal 2.0-7.7 [facility] Comment on above: Order Comment: 109-1 Performed By: #### L 100.0100 ####[facility] [address] [place], [address] Basophils/100 WBC (Bld) 0.5 % Normal 0-1 [facility] Comment on above: Order Comment: 109-1 Performed By: #### L 100.0100 ####[facility] [address] [place], [address] Eosinophils/100 WBC (Bld) 0.7 % Normal 0-5 [facility] Comment on above: Order Comment: 109-1 Performed By: #### L 100.0100 ####[facility] [address] [place], [address] Erythrocyte distribution width (RBC) [Ratio] 12.8 % Normal 11.6-14.6 [facility] Comment on above: Order Comment: 109-1 Performed By: #### L 100.0100 ####[facility] [address] [place], [address] Hematocrit (Bld) [Volume fraction] 40.7 % Normal 40-54 [facility] Comment on above: Order Comment: 109-1 Performed By: #### L 100.0100 ####[facility] [address] [place], [address] Hemoglobin (Bld) [Mass/Vol] 13.5 g/dL Normal 13.0-16.5 [facility] Comment on above: Order Comment: 109-1 Performed By: #### L 100.0100 ####[facility] [address] [place], [address] IG% 0.400 Normal 0.0-0.9 [facility] Comment on above: Order Comment: 109-1 Result Comment: IG% - Immature Granulocytes (promyelocytes, myelocytes andmetamyelocytes) > 1% indicates that a LEFT SHIFT is Present. Performed By: #### L 100.0100 ####[facility] [address] [place], [address] Lymphocytes/100 WBC (Bld) 20.2 % Normal 19-41 [facility] Comment on above: Order Comment: 109-1 Performed By: #### L 100.0100 ####[facility] [address] [place], [address] MCH (RBC) [Entitic mass] 29.9 pg Normal 27.0-32.0 [facility] Comment on above: Order Comment: 109-1 Performed By: #### L 100.0100 ####[facility] [address] [place], [address] MCHC (RBC) [Mass/Vol] 33.2 g/dL Normal 32-36 [facility] Comment on above: Order Comment: 109-1 Performed By: #### L 100.0100 ####[facility] [address] [place], [address] MCV (RBC) [Entitic vol] 90.0 fL Normal 80-94 [facility] Comment on above: Order Comment: 109-1 Performed By: #### L 100.0100 ####[facility] [address] [place], [address] Monocytes/100 WBC (Bld) 7.1 % Normal 0-10 [facility] Comment on above: Order Comment: 109-1 Performed By: #### L 100.0100 ####[facility] [address] [place], [address] Neutrophils/100 WBC (Bld) 71.1 % High 47-70 [facility] Comment on above: Order Comment: 109-1 Performed By: #### L 100.0100 ####[facility] [address] [place], [address] Nucleated RBC (Bld) [#/Vol] 0 10*3/uL Normal 0-5 [facility] Comment on above: Order Comment: 109-1 Performed By: #### L 100.0100 ####[facility] [address] [place], [address] Platelet mean volume (Bld) [Entitic vol] 11.2 fL Normal 6.2-12.0 [facility] Comment on above: Order Comment: 109-1 Performed By: #### L 100.0100 ####[facility] [address] [place], [address] Platelets (Bld) [#/Vol] 218 10*3/uL Normal 150-450 [facility] Comment on above: Order Comment: 109-1 Performed By: #### L 100.0100 ####[facility] [address] [place], [address] RBC (Bld) [#/Vol] 4.52 10*6/uL Low 4.6-6.2 [facility] Comment on above: Order Comment: 109-1 Performed By: #### L 100.0100 ####[facility] [address] [place], [address] RDW SD 41.9 fl Normal 35.1-43.9 [facility] Comment on above: Order Comment: 109-1 Performed By: #### L 100.0100 ####[facility] [address] [place], [place], [address] WBC (Bld) [#/Vol] 9.6 10*3/uL Normal 4.4-11.0 [facility] Comment on above: Order Comment: 109-1 Performed By: #### L 100.0100 ####[facility] [address] [place], [place], [address] Eosinophil percentageOrdered By: Renard Burgos on 07-29-2024 Eosinophils/100 WBC (Bld) 0.7 % 0-5 [facility] Erythrocyte distribution wid th ratioOrdered By: Renard Burgos on 07-29-2024 Erythrocyte distribution width (RBC) [Ratio] 12.8 % 11.6-14.6 [facility] Erythrocyte distribution wid th standard deviationOrdered By: Renard Burgos on 07-29-2024 Erythrocyte distribution width (RBC) [Entitic vol] 41.9 fL 35.1-43.9 [facility] Erythrocyte distribution width (RBC) [Ratio] 41.9 fl 35.1-43.9 [facility] Hematocrit Auto (Bld) [Volum e fraction]Ordered By: Renard Burgos on 07-29-2024 Hematocrit (Bld) [Volume fraction] 40.7 % 40-54 [facility] Hemoglobin measurementOrdere d By: Renard Burgos on 07-29-2024 Hemoglobin (Bld) [Mass/Vol] 13.5 g/dL 13.0-16.5 [facility] Immature granulocytes/100 WB C Auto (Bld)Ordered By: Renard Burgos on 07-29-2024 Immature granulocytes/100 WBC (Bld) 0.400 % 0.0-0.9 [facility] Comment on above: IG% - Immature Granu locytes (promyelocytes, myelocytes and metamyelocytes) > 1% indicates that a LEFT SHIFT is Present. Lymphocytes Auto (Unsp spec) [#/Vol]Ordered By: Renard Burgos on 07-29-2024 Lymphocytes (Bld) [#/Vol] 1.93 10*3/uL 0.83-4.51 [facility] Lymphocytes/100 WBC Auto (Un sp spec)Ordered By: Renard Burgos on 07-29-2024 Lymphocytes/100 WBC (Bld) 20.2 % 19-41 [facility] MCV (mean corpuscular volume ) determinationOrdered By: Renard Burgos on 07-29-2024 MCV (RBC) [Entitic vol] 90.0 fL 80-94 [facility] Mean corpuscular hemoglobin (MCH) determinationOrdered By: Renard Burgos on 07-29-2024 MCH (RBC) [Entitic mass] 29.9 pg 27.0-32.0 [facility] Mean corpuscular hemoglobin concentration (MCHC) determinationOrdered By: Renard Burgos on 07-29-2024 MCHC (RBC) [Mass/Vol] 33.2 g/dL 32-36 [facility] Mean platelet volume determi nationOrdered By: Renard Burgos on 07-29-2024 Platelet mean volume (Bld) [Entitic vol] 11.2 fL 6.2-12.0 [facility] Monocyte percentageOrdered B y: Renard Burgos on 07-29-2024 Monocytes/100 WBC (Bld) 7.1 % 0-10 [facility] Neutrophil percentageOrdered By: Renard Burgos on 07-29-2024 Neutrophils/100 WBC (Bld) 71.1 % High 47-70 [facility] Nucleated red blood cell per centageOrdered By: Renard Burgos on 07-29-2024 Nucleated RBC/100 WBC (Bld) [Ratio] 0 % 0-5 [facility] Platelet countOrdered By: Garrick Bhatt on 07-29-2024 Platelets (Bld) [#/Vol] 218 10*3/uL 150-450 [facility] RBC Auto (Bld) [#/Vol]Ordere d By: Renard Burgos on 07-29-2024 RBC (Bld) [#/Vol] 4.52 10*6/uL Low 4.6-6.2 [facility] White blood cell (WBC) count Ordered By: Renard Burgos on 07-29-2024 WBC (Bld) [#/Vol] 9.6 10*3/uL 4.4-11.0 [facility] Absolute lymphocyte countOrd ered By: Renard Burgos on 07-22-2024 Lymphocytes Auto (Unsp spec) [#/Vol] 1.90 10*3/uL 0.83-4.51 [facility] Absolute neutrophil countOrd ered By: Renard Hensleydiego on 07-22-2024 Neutrophils (Bld) [#/Vol] 5.2 10*3/uL 2.0-7.7 [facility] Automated lymphocyte count a s percentage of total leukocytesOrdered By: Renard Burgos on 07-22-2024 Lymphocytes/100 WBC Auto (Unsp spec) 23.9 % 19-41 [facility] Basophil percentageOrdered B y: Renard Burgos on 07-22-2024 Basophils/100 WBC (Bld) 0.6 % 0-1 [facility] CBC W/Diff, Automatedon 06-30 Absolute Lymph 1.90 X10 3/uL Normal 0.83-4.51 [facility] Comment on above: Order Comment: 109.1 Performed By: #### L 100.0100 ####[facility] [address] [place], [address] Absolute Neut 5.2 X10 3/uL Normal 2.0-7.7 [facility] Comment on above: Order Comment: 109.1 Performed By: #### L 100.0100 ####[facility] [address] [place], [address] Basophils/100 WBC (Bld) 0.6 % Normal 0-1 [facility] Comment on above: Order Comment: 109.1 Performed By: #### L 100.0100 ####[facility] [address] [place], [address] Eosinophils/100 WBC (Bld) 0.9 % Normal 0-5 [facility] Comment on above: Order Comment: 109.1 Performed By: #### L 100.0100 ####[facility] [address] [place], [address] Erythrocyte distribution width (RBC) [Ratio] 12.9 % Normal 11.6-14.6 [facility] Comment on above: Order Comment: 109.1 Performed By: #### L 100.0100 ####[facility] [address] [place], [address] Hematocrit (Bld) [Volume fraction] 41.4 % Normal 40-54 [facility] Comment on above: Order Comment: 109.1 Performed By: #### L 100.0100 ####[facility] [address] [place], [address] Hemoglobin (Bld) [Mass/Vol] 13.5 g/dL Normal 13.0-16.5 [facility] Comment on above: Order Comment: 109.1 Performed By: #### L 100.0100 ####[facility] [address] [place], [address] IG% 0.300 Normal 0.0-0.9 [facility] Comment on above: Order Comment: 109.1 Result Comment: IG% - Immature Granulocytes (promyelocytes, myelocytes andmetamyelocytes) > 1% indicates that a LEFT SHIFT is Present. Performed By: #### L 100.0100 ####[facility] [address] [place], [address] Lymphocytes/100 WBC (Bld) 23.9 % Normal 19-41 [facility] Comment on above: Order Comment: 109.1 Performed By: #### L 100.0100 ####[facility] [address] [place], [address] MCH (RBC) [Entitic mass] 29.8 pg Normal 27.0-32.0 [facility] Comment on above: Order Comment: 109.1 Performed By: #### L 100.0100 ####[facility] [address] [place], [address] MCHC (RBC) [Mass/Vol] 32.6 g/dL Normal 32-36 [facility] Comment on above: Order Comment: 109.1 Performed By: #### L 100.0100 ####[facility] [address] [place], [address] MCV (RBC) [Entitic vol] 91.4 fL Normal 80-94 [facility] Comment on above: Order Comment: 109.1 Performed By: #### L 100.0100 ####[facility] [address] [place], [address] Monocytes/100 WBC (Bld) 9.4 % Normal 0-10 [facility] Comment on above: Order Comment: 109.1 Performed By: #### L 100.0100 ####[facility] [address] [place], [address] Neutrophils/100 WBC (Bld) 64.9 % Normal 47-70 [facility] Comment on above: Order Comment: 109.1 Performed By: #### L 100.0100 ####[facility] [address] [place], [address] Nucleated RBC (Bld) [#/Vol] 0 10*3/uL Normal 0-5 [facility] Comment on above: Order Comment: 109.1 Performed By: #### L 100.0100 ####[facility] [address] [place], [address] Platelet mean volume (Bld) [Entitic vol] 11.5 fL Normal 6.2-12.0 [facility] Comment on above: Order Comment: 109.1 Performed By: #### L 100.0100 ####[facility] [address] [place], [address] Platelets (Bld) [#/Vol] 202 10*3/uL Normal 150-450 [facility] Comment on above: Order Comment: 109.1 Performed By: #### L 100.0100 ####[facility] [address] [place], [address] RBC (Bld) [#/Vol] 4.53 10*6/uL Low 4.6-6.2 [facility] Comment on above: Order Comment: 109.1 Performed By: #### L 100.0100 ####[facility] [address] [place], [address] RDW SD 42.7 fl Normal 35.1-43.9 [facility] Comment on above: Order Comment: 109.1 Performed By: #### L 100.0100 ####[facility] [address] [place], [address] WBC (Bld) [#/Vol] 8.0 10*3/uL Normal 4.4-11.0 [facility] Comment on above: Order Comment: 109.1 Performed By: #### L 100.0100 ####[facility] [address] [place], [place], [id number]) Eosinophil percentageOrdered By: Renard Burgos on 07-22-2024 Eosinophils/100 WBC (Bld) 0.9 % 0-5 [facility] Erythrocyte distribution wid th ratioOrdered By: Renard Burgos on 07-22-2024 Erythrocyte distribution width (RBC) [Ratio] 12.9 % 11.6-14.6 [facility] Erythrocyte distribution wid th standard deviationOrdered By: Renard Burgos on 07-22-2024 Erythrocyte distribution width (RBC) [Entitic vol] 42.7 fL 35.1-43.9 [facility] Erythrocyte distribution width (RBC) [Ratio] 42.7 fl 35.1-43.9 [facility] Hematocrit Auto (Bld) [Volum e fraction]Ordered By: Renard Burgos on 07-22-2024 Hematocrit (Bld) [Volume fraction] 41.4 % 40-54 [facility] Hemoglobin measurementOrdere d By: Renard Burgos on 07-22-2024 Hemoglobin (Bld) [Mass/Vol] 13.5 g/dL 13.0-16.5 [facility] Immature granulocytes/100 WB C Auto (Bld)Ordered By: Renard Burgos on 07-22-2024 Immature granulocytes/100 WBC (Bld) 0.300 % 0.0-0.9 [facility] Comment on above: IG% - Immature Granu locytes (promyelocytes, myelocytes and metamyelocytes) > 1% indicates that a LEFT SHIFT is Present. Lymphocytes Auto (Unsp spec) [#/Vol]Ordered By: Renard Burgos on 07-22-2024 Lymphocytes (Bld) [#/Vol] 1.90 10*3/uL 0.83-4.51 [facility] Lymphocytes/100 WBC Auto (Un sp spec)Ordered By: Renard Burgos on 07-22-2024 Lymphocytes/100 WBC (Bld) 23.9 % 19-41 [facility] MCV (mean corpuscular volume ) determinationOrdered By: Renard Burgos on 07-22-2024 MCV (RBC) [Entitic vol] 91.4 fL 80-94 [facility] Mean corpuscular hemoglobin (MCH) determinationOrdered By: Renard Burgos on 07-22-2024 MCH (RBC) [Entitic mass] 29.8 pg 27.0-32.0 [facility] Mean corpuscular hemoglobin concentration (MCHC) determinationOrdered By: Renard Burgos on 07-22-2024 MCHC (RBC) [Mass/Vol] 32.6 g/dL 32-36 [facility] Mean platelet volume determi nationOrdered By: Renard Burgos on 07-22-2024 Platelet mean volume (Bld) [Entitic vol] 11.5 fL 6.2-12.0 [facility] Monocyte percentageOrdered B y: Renard Burgos on 07-22-2024 Monocytes/100 WBC (Bld) 9.4 % 0-10 [facility] Neutrophil percentageOrdered By: Renard Burgos on 07-22-2024 Neutrophils/100 WBC (Bld) 64.9 % 47-70 [facility] Nucleated red blood cell per centageOrdered By: Renard Burgos on 07-22-2024 Nucleated RBC/100 WBC (Bld) [Ratio] 0 % 0-5 [facility] Platelet countOrdered By: Garrick Bhatt on 03-24-2025 Platelets (Bld) [#/Vol] 202 10*3/uL 150-450 [facility] RBC Auto (Bld) [#/Vol]Ordere d By: Renard Burgos on 07-22-2024 RBC (Bld) [#/Vol] 4.53 10*6/uL Low 4.6-6.2 [facility] White blood cell (WBC) count Ordered By: Renard Burgos on 07-22-2024 WBC (Bld) [#/Vol] 8.0 10*3/uL 4.4-11.0 [facility] L506.1001on 07-16-2024 Vitamin D 25-OH 21.8 ng/mL Low 30-100 [facility] Comment on above: Order Comment: 109 Result Comment: Edilma min D StatusDeficiency: <20 ng/mL (50nmol/L)Insufficiency: 20-30 ng/mL (50-75 nmol/L)Sufficiency: 30-100 ng/mL (75-250 nmol/L)Toxicity: >100 ng/mL (>250 nmol/L) Performed By: #### L 506.1001 ####[facility] [address] [place], [id number] Vitamin D, 25-hydroxyOrdered By: Renard Burgos on 07-16-2024 Vitamin D 25-Hydroxy 21.8 ng/mL Low 30-100 [facility] Comment on above: Vitamin D StatusDefi ciency: <20 ng/mL (50nmol/L)Insufficiency: 20-30 ng/mL (50-75 nmol/L)Sufficiency: 30-100 ng/mL (75-250 nmol/L)Toxicity: >100 ng/mL (>250 nmol/L) Absolute lymphocyte countOrd ered By: Renard Burgos on 07-15-2024 Lymphocytes Auto (Unsp spec) [#/Vol] 2.10 10*3/uL 0.83-4.51 [facility] Absolute neutrophil countOrd ered By: Renard Burgos on 07-15-2024 Neutrophils (Bld) [#/Vol] 6.9 10*3/uL 2.0-7.7 [facility] Automated lymphocyte count a s percentage of total leukocytesOrdered By: Renard Hensleydiego on 07-15-2024 Lymphocytes/100 WBC Auto (Unsp spec) 21.0 % 19-41 [facility] Basophil percentageOrdered B y: Renard Shelliediego on 07-15-2024 Basophils/100 WBC (Bld) 0.5 % 0-1 [facility] CBC W/Diff, Automatedon 06-29 Absolute Lymph 2.10 X10 3/uL Normal 0.83-4.51 [facility] Comment on above: Order Comment: 109.1 Performed By: #### L 100.0100 ####[facility] [address] [place], [address] Absolute Neut 6.9 X10 3/uL Normal 2.0-7.7 [facility] Comment on above: Order Comment: 109.1 Performed By: #### L 100.0100 ####[facility] [address] [place], [address] Basophils/100 WBC (Bld) 0.5 % Normal 0-1 [facility] Comment on above: Order Comment: 109.1 Performed By: #### L 100.0100 ####[facility] [address] [place], [address] Eosinophils/100 WBC (Bld) 1.2 % Normal 0-5 [facility] Comment on above: Order Comment: 109.1 Performed By: #### L 100.0100 ####[facility] [address] [place], [address] Erythrocyte distribution width (RBC) [Ratio] 12.9 % Normal 11.6-14.6 [facility] Comment on above: Order Comment: 109.1 Performed By: #### L 100.0100 ####[facility] [address] [place], [address] Hematocrit (Bld) [Volume fraction] 41.0 % Normal 40-54 [facility] Comment on above: Order Comment: 109.1 Performed By: #### L 100.0100 ####[facility] [address] [place], [address] Hemoglobin (Bld) [Mass/Vol] 13.4 g/dL Normal 13.0-16.5 [facility] Comment on above: Order Comment: 109.1 Performed By: #### L 100.0100 ####[facility] [address] [place], [address] IG% 0.300 Normal 0.0-0.9 [facility] Comment on above: Order Comment: 109.1 Result Comment: IG% - Immature Granulocytes (promyelocytes, myelocytes andmetamyelocytes) > 1% indicates that a LEFT SHIFT is Present. Performed By: #### L 100.0100 ####[facility] [address] [place], [address] Lymphocytes/100 WBC (Bld) 21.0 % Normal 19-41 [facility] Comment on above: Order Comment: 109.1 Performed By: #### L 100.0100 ####[facility] [address] [place], [address] MCH (RBC) [Entitic mass] 29.7 pg Normal 27.0-32.0 [facility] Comment on above: Order Comment: 109.1 Performed By: #### L 100.0100 ####[facility] [address] [place], [address] MCHC (RBC) [Mass/Vol] 32.7 g/dL Normal 32-36 [facility] Comment on above: Order Comment: 109.1 Performed By: #### L 100.0100 ####[facility] [address] [place], [address] MCV (RBC) [Entitic vol] 90.9 fL Normal 80-94 [facility] Comment on above: Order Comment: 109.1 Performed By: #### L 100.0100 ####[facility] [address] [place], [address] Monocytes/100 WBC (Bld) 7.6 % Normal 0-10 [facility] Comment on above: Order Comment: 109.1 Performed By: #### L 100.0100 ####[facility] [address] [place], [address] Neutrophils/100 WBC (Bld) 69.4 % Normal 47-70 [facility] Comment on above: Order Comment: 109.1 Performed By: #### L 100.0100 ####[facility] [address] [place], [address] Nucleated RBC (Bld) [#/Vol] 0 10*3/uL Normal 0-5 [facility] Comment on above: Order Comment: 109.1 Performed By: #### L 100.0100 ####[facility] [address] [place], [address] Platelet mean volume (Bld) [Entitic vol] 11.4 fL Normal 6.2-12.0 [facility] Comment on above: Order Comment: 109.1 Performed By: #### L 100.0100 ####[facility] [address] [place], [address] Platelets (Bld) [#/Vol] 206 10*3/uL Normal 150-450 [facility] Comment on above: Order Comment: 109.1 Performed By: #### L 100.0100 ####[facility] [address] [place], [address] RBC (Bld) [#/Vol] 4.51 10*6/uL Low 4.6-6.2 [facility] Comment on above: Order Comment: 109.1 Performed By: #### L 100.0100 ####[facility] [address] [place], [address] RDW SD 42.3 fl Normal 35.1-43.9 [facility] Comment on above: Order Comment: 109.1 Performed By: #### L 100.0100 ####[facility] [address] [place], [address] WBC (Bld) [#/Vol] 10.0 10*3/uL Normal 4.4-11.0 [facility] Comment on above: Order Comment: 109.1 Performed By: #### L 100.0100 ####[facility] [address] [place], [address] Eosinophil percentageOrdered By: Renard Burgos on 07-15-2024 Eosinophils/100 WBC (Bld) 1.2 % 0-5 [facility] Erythrocyte distribution wid th ratioOrdered By: Renard Burgos on 07-15-2024 Erythrocyte distribution width (RBC) [Ratio] 12.9 % 11.6-14.6 [facility] Erythrocyte distribution wid th standard deviationOrdered By: Renard Burgos on 07-15-2024 Erythrocyte distribution width (RBC) [Entitic vol] 42.3 fL 35.1-43.9 [facility] Erythrocyte distribution width (RBC) [Ratio] 42.3 fl 35.1-43.9 [facility] Hematocrit Auto (Bld) [Volum e fraction]Ordered By: Renard Burgos on 07-15-2024 Hematocrit (Bld) [Volume fraction] 41.0 % 40-54 [facility] Hemoglobin measurementOrdere d By: Renard Burgos on 07-15-2024 Hemoglobin (Bld) [Mass/Vol] 13.4 g/dL 13.0-16.5 [facility] Immature granulocytes/100 WB C Auto (Bld)Ordered By: Renard Burgos on 07-15-2024 Immature granulocytes/100 WBC (Bld) 0.300 % 0.0-0.9 [facility] Comment on above: IG% - Immature Granu locytes (promyelocytes, myelocytes and metamyelocytes) > 1% indicates that a LEFT SHIFT is Present. Lymphocytes Auto (Unsp spec) [#/Vol]Ordered By: Renard Burgos on 07-15-2024 Lymphocytes (Bld) [#/Vol] 2.10 10*3/uL 0.83-4.51 [facility] Lymphocytes/100 WBC Auto (Un sp spec)Ordered By: Renard Burgos on 07-15-2024 Lymphocytes/100 WBC (Bld) 21.0 % 19-41 [facility] MCV (mean corpuscular volume ) determinationOrdered By: Renard Burgos on 07-15-2024 MCV (RBC) [Entitic vol] 90.9 fL 80-94 [facility] Mean corpuscular hemoglobin (MCH) determinationOrdered By: Renard Burgos on 07-15-2024 MCH (RBC) [Entitic mass] 29.7 pg 27.0-32.0 [facility] Mean corpuscular hemoglobin concentration (MCHC) determinationOrdered By: Renard Bugros on 07-15-2024 MCHC (RBC) [Mass/Vol] 32.7 g/dL 32-36 [facility] Mean platelet volume determi nationOrdered By: Renard Burgos on 07-15-2024 Platelet mean volume (Bld) [Entitic vol] 11.4 fL 6.2-12.0 [facility] Monocyte percentageOrdered B y: Renard Burgos on 07-15-2024 Monocytes/100 WBC (Bld) 7.6 % 0-10 [facility] Neutrophil percentageOrdered By: Renard Burgos on 07-15-2024 Neutrophils/100 WBC (Bld) 69.4 % 47-70 [facility] Nucleated red blood cell per centageOrdered By: Renard Burgos on 07-15-2024 Nucleated RBC/100 WBC (Bld) [Ratio] 0 % 0-5 [facility] Platelet countOrdered By: Garrick Bhatt on 07-15-2024 Platelets (Bld) [#/Vol] 206 10*3/uL 150-450 [facility] RBC Auto (Bld) [#/Vol]Ordere d By: Renard Burgos on 07-15-2024 RBC (Bld) [#/Vol] 4.51 10*6/uL Low 4.6-6.2 [facility] White blood cell (WBC) count Ordered By: Renard Burgos on 07-15-2024 WBC (Bld) [#/Vol] 10.0 10*3/uL 4.4-11.0 [facility] Absolute lymphocyte countOrd ered By: Renard Burgos on 07-08-2024 Lymphocytes Auto (Unsp spec) [#/Vol] 2.02 10*3/uL 0.83-4.51 [facility] Absolute neutrophil countOrd ered By: Renard Burgos on 07-08-2024 Neutrophils (Bld) [#/Vol] 7.2 10*3/uL 2.0-7.7 [facility] Automated lymphocyte count a s percentage of total leukocytesOrdered By: Renard Burgos on 07-08-2024 Lymphocytes/100 WBC Auto (Unsp spec) 19.7 % 19-41 [facility] Basophil percentageOrdered B y: Renard Burgos on 07-08-2024 Basophils/100 WBC (Bld) 0.6 % 0-1 [facility] CBC W/Diff, Automatedon 06-29 Absolute Lymph 2.02 X10 3/uL Normal 0.83-4.51 [facility] Comment on above: Order Comment: 109-1 Performed By: #### L 100.0100 ####[facility] [address] [place], [address] Absolute Neut 7.2 X10 3/uL Normal 2.0-7.7 [facility] Comment on above: Order Comment: 109-1 Performed By: #### L 100.0100 ####[facility] [address] [place], [address] Basophils/100 WBC (Bld) 0.6 % Normal 0-1 [facility] Comment on above: Order Comment: 109-1 Performed By: #### L 100.0100 ####[facility] [address] [place], [address] Eosinophils/100 WBC (Bld) 1.5 % Normal 0-5 [facility] Comment on above: Order Comment: 109-1 Performed By: #### L 100.0100 ####[facility] [address] [place], [address] Erythrocyte distribution width (RBC) [Ratio] 12.9 % Normal 11.6-14.6 [facility] Comment on above: Order Comment: 109-1 Performed By: #### L 100.0100 ####[facility] [address] [place], [address] Hematocrit (Bld) [Volume fraction] 40.6 % Normal 40-54 [facility] Comment on above: Order Comment: 109-1 Performed By: #### L 100.0100 ####[facility] [address] [place], [address] Hemoglobin (Bld) [Mass/Vol] 13.6 g/dL Normal 13.0-16.5 [facility] Comment on above: Order Comment: 109-1 Performed By: #### L 100.0100 ####[facility] [address] [place], [address] IG% 0.500 Normal 0.0-0.9 [facility] Comment on above: Order Comment: 109-1 Result Comment: IG% - Immature Granulocytes (promyelocytes, myelocytes andmetamyelocytes) > 1% indicates that a LEFT SHIFT is Present. Performed By: #### L 100.0100 ####[facility] [address] [place], [address] Lymphocytes/100 WBC (Bld) 19.7 % Normal 19-41 [facility] Comment on above: Order Comment: 109-1 Performed By: #### L 100.0100 ####[facility] [address] [place], [address] MCH (RBC) [Entitic mass] 30.5 pg Normal 27.0-32.0 [facility] Comment on above: Order Comment: 109-1 Performed By: #### L 100.0100 ####[facility] [address] [place], [address] MCHC (RBC) [Mass/Vol] 33.5 g/dL Normal 32-36 [facility] Comment on above: Order Comment: 109-1 Performed By: #### L 100.0100 ####[facility] [address] [place], [address] MCV (RBC) [Entitic vol] 91.0 fL Normal 80-94 [facility] Comment on above: Order Comment: 109-1 Performed By: #### L 100.0100 ####[facility] [address] [place], [address] Monocytes/100 WBC (Bld) 7.4 % Normal 0-10 [facility] Comment on above: Order Comment: 109-1 Performed By: #### L 100.0100 ####[facility] [address] [place], [address] Neutrophils/100 WBC (Bld) 70.3 % High 47-70 [facility] Comment on above: Order Comment: 109-1 Performed By: #### L 100.0100 ####[facility] [address] [place], [address] Nucleated RBC (Bld) [#/Vol] 0 10*3/uL Normal 0-5 [facility] Comment on above: Order Comment: 109-1 Performed By: #### L 100.0100 ####[facility] [address] [place], [address] Platelet mean volume (Bld) [Entitic vol] 11.1 fL Normal 6.2-12.0 [facility] Comment on above: Order Comment: 109-1 Performed By: #### L 100.0100 ####[facility] [address] [place], [address] Platelets (Bld) [#/Vol] 207 10*3/uL Normal 150-450 [facility] Comment on above: Order Comment: 109-1 Performed By: #### L 100.0100 ####[facility] [address] [place], [address] RBC (Bld) [#/Vol] 4.46 10*6/uL Low 4.6-6.2 [facility] Comment on above: Order Comment: 109-1 Performed By: #### L 100.0100 ####[facility] [address] [place], [address] RDW SD 42.5 fl Normal 35.1-43.9 [facility] Comment on above: Order Comment: 109-1 Performed By: #### L 100.0100 ####[facility] [address] [place], [address] WBC (Bld) [#/Vol] 10.3 10*3/uL Normal 4.4-11.0 [facility] Comment on above: Order Comment: 109-1 Performed By: #### L 100.0100 ####[facility] [address] [place], [address] Eosinophil percentageOrdered By: Renard Burgos on 07-08-2024 Eosinophils/100 WBC (Bld) 1.5 % 0-5 [facility] Erythrocyte distribution wid th ratioOrdered By: Renard Burgos on 07-08-2024 Erythrocyte distribution width (RBC) [Ratio] 12.9 % 11.6-14.6 [facility] Erythrocyte distribution wid th standard deviationOrdered By: Renard Burgos on 07-08-2024 Erythrocyte distribution width (RBC) [Entitic vol] 42.5 fL 35.1-43.9 [facility] Erythrocyte distribution width (RBC) [Ratio] 42.5 fl 35.1-43.9 [facility] Hematocrit Auto (Bld) [Volum e fraction]Ordered By: Renard Burgos on 07-08-2024 Hematocrit (Bld) [Volume fraction] 40.6 % 40-54 [facility] Hemoglobin measurementOrdere d By: Renard Burgos on 07-08-2024 Hemoglobin (Bld) [Mass/Vol] 13.6 g/dL 13.0-16.5 [facility] Immature granulocytes/100 WB C Auto (Bld)Ordered By: Renard Burgos on 07-08-2024 Immature granulocytes/100 WBC (Bld) 0.500 % 0.0-0.9 [facility] Comment on above: IG% - Immature Granu locytes (promyelocytes, myelocytes and metamyelocytes) > 1% indicates that a LEFT SHIFT is Present. Lymphocytes Auto (Unsp spec) [#/Vol]Ordered By: Renard Burgos on 07-08-2024 Lymphocytes (Bld) [#/Vol] 2.02 10*3/uL 0.83-4.51 [facility] Lymphocytes/100 WBC Auto (Un sp spec)Ordered By: Renard Burgos on 07-08-2024 Lymphocytes/100 WBC (Bld) 19.7 % 19-41 [facility] MCV (mean corpuscular volume ) determinationOrdered By: Renard Burgos on 07-08-2024 MCV (RBC) [Entitic vol] 91.0 fL 80-94 [facility] Mean corpuscular hemoglobin (MCH) determinationOrdered By: Renard Burgos on 07-08-2024 MCH (RBC) [Entitic mass] 30.5 pg 27.0-32.0 [facility] Mean corpuscular hemoglobin concentration (MCHC) determinationOrdered By: Renard Burgos on 07-08-2024 MCHC (RBC) [Mass/Vol] 33.5 g/dL 32-36 [facility] Mean platelet volume determi nationOrdered By: Renard Burgos on 07-08-2024 Platelet mean volume (Bld) [Entitic vol] 11.1 fL 6.2-12.0 [facility] Monocyte percentageOrdered B y: Renard Burgos on 07-08-2024 Monocytes/100 WBC (Bld) 7.4 % 0-10 [facility] Neutrophil percentageOrdered By: Renard Burgos on 07-08-2024 Neutrophils/100 WBC (Bld) 70.3 % High 47-70 [facility] Nucleated red blood cell per centageOrdered By: Renard Burgos on 07-08-2024 Nucleated RBC/100 WBC (Bld) [Ratio] 0 % 0-5 [facility] Platelet countOrdered By: Garrick Bhatt on 07-08-2024 Platelets (Bld) [#/Vol] 207 10*3/uL 150-450 [facility] RBC Auto (Bld) [#/Vol]Ordere d By: Renard Burgos on 07-08-2024 RBC (Bld) [#/Vol] 4.46 10*6/uL Low 4.6-6.2 [facility] White blood cell (WBC) count Ordered By: Renard Burgos on 07-08-2024 WBC (Bld) [#/Vol] 10.3 10*3/uL 4.4-11.0 [facility] Absolute lymphocyte countOrd ered By: Renard Burgos on 07-01-2024 Lymphocytes Auto (Unsp spec) [#/Vol] 2.03 10*3/uL 0.83-4.51 [facility] Absolute neutrophil countOrd ered By: Renard Burgos on 07-01-2024 Neutrophils (Bld) [#/Vol] 7.0 10*3/uL 2.0-7.7 [facility] Automated lymphocyte count a s percentage of total leukocytesOrdered By: Renard Burgos on 07-01-2024 Lymphocytes/100 WBC Auto (Unsp spec) 20.3 % 19-41 [facility] Basophil percentageOrdered B y: Renard Burgos on 07-01-2024 Basophils/100 WBC (Bld) 0.6 % 0-1 [facility] CBC W/Diff, Automatedon Absolute Lymph 2.03 X10 3/uL Normal 0.83-4.51 [facility] Comment on above: Order Comment: 109 Performed By: #### L 100.0100 ####[facility] [address] [facility] [place], [place], [id number] Absolute Neut 7.0 X10 3/uL Normal 2.0-7.7 [facility] Comment on above: Order Comment: 109 Performed By: #### L 100.0100 ####[facility] [address], [address] Basophils/100 WBC (Bld) 0.6 % Normal 0-1 [facility] Comment on above: Order Comment: 109 Performed By: #### L 100.0100 ####[facility] [address] [place], [address] Eosinophils/100 WBC (Bld) 1.3 % Normal 0-5 [facility] Comment on above: Order Comment: 109 Performed By: #### L 100.0100 ####[facility] [address] [place], [address] Erythrocyte distribution width (RBC) [Ratio] 13.1 % Normal 11.6-14.6 [facility] Comment on above: Order Comment: 109 Performed By: #### L 100.0100 ####[facility] [address] [place], [address] Hematocrit (Bld) [Volume fraction] 41.7 % Normal 40-54 [facility] Comment on above: Order Comment: 109 Performed By: #### L 100.0100 ####[facility] [address] [place], [address] Hemoglobin (Bld) [Mass/Vol] 13.6 g/dL Normal 13.0-16.5 [facility] Comment on above: Order Comment: 109 Performed By: #### L 100.0100 ####[facility] [address] [place], [address] IG% 0.500 Normal 0.0-0.9 [facility] Comment on above: Order Comment: 109 Result Comment: IG% - Immature Granulocytes (promyelocytes, myelocytes andmetamyelocytes) > 1% indicates that a LEFT SHIFT is Present. Performed By: #### L 100.0100 ####[facility] [address] [place], [address] Lymphocytes/100 WBC (Bld) 20.3 % Normal 19-41 [facility] Comment on above: Order Comment: 109 Performed By: #### L 100.0100 ####[facility] [address] [place], [address] MCH (RBC) [Entitic mass] 29.6 pg Normal 27.0-32.0 [facility] Comment on above: Order Comment: 109 Performed By: #### L 100.0100 ####[facility] [address] [place], [address] MCHC (RBC) [Mass/Vol] 32.6 g/dL Normal 32-36 [facility] Comment on above: Order Comment: 109 Performed By: #### L 100.0100 ####[facility] [address] [place], [address] MCV (RBC) [Entitic vol] 90.8 fL Normal 80-94 [facility] Comment on above: Order Comment: 109 Performed By: #### L 100.0100 ####[facility] [address] [place], [address] Monocytes/100 WBC (Bld) 6.8 % Normal 0-10 [facility] Comment on above: Order Comment: 109 Performed By: #### L 100.0100 ####[facility] [address] [place], [address] Neutrophils/100 WBC (Bld) 70.5 % High 47-70 [facility] Comment on above: Order Comment: 109 Performed By: #### L 100.0100 ####[facility] [address] [place], [address] Nucleated RBC (Bld) [#/Vol] 0 10*3/uL Normal 0-5 [facility] Comment on above: Order Comment: 109 Performed By: #### L 100.0100 ####[facility] [address] [place], [address] Platelet mean volume (Bld) [Entitic vol] 11.0 fL Normal 6.2-12.0 [facility] Comment on above: Order Comment: 109 Performed By: #### L 100.0100 ####[facility] [address] [place], [address] Platelets (Bld) [#/Vol] 208 10*3/uL Normal 150-450 [facility] Comment on above: Order Comment: 109 Performed By: #### L 100.0100 ####[facility] [address] [place], [address] RBC (Bld) [#/Vol] 4.59 10*6/uL Low 4.6-6.2 [facility] Comment on above: Order Comment: 109 Performed By: #### L 100.0100 ####[facility] [address] [place], [address] RDW SD 42.8 fl Normal 35.1-43.9 [facility] Comment on above: Order Comment: 109 Performed By: #### L 100.0100 ####[facility] [address] [place], [address] WBC (Bld) [#/Vol] 10.0 10*3/uL Normal 4.4-11.0 [facility] Comment on above: Order Comment: 109 Performed By: #### L 100.0100 ####[facility] [address] [place], [address] Eosinophil percentageOrdered By: Renard Burgos on 07-01-2024 Eosinophils/100 WBC (Bld) 1.3 % 0-5 [facility] Erythrocyte distribution wid th ratioOrdered By: Renard Burgos on 07-01-2024 Erythrocyte distribution width (RBC) [Ratio] 13.1 % 11.6-14.6 [facility] Erythrocyte distribution wid th standard deviationOrdered By: Renard Burgos on 07-01-2024 Erythrocyte distribution width (RBC) [Entitic vol] 42.8 fL 35.1-43.9 [facility] Erythrocyte distribution width (RBC) [Ratio] 42.8 fl 35.1-43.9 [facility] Hematocrit Auto (Bld) [Volum e fraction]Ordered By: Renard Burgos on 07-01-2024 Hematocrit (Bld) [Volume fraction] 41.7 % 40-54 [facility] Hemoglobin measurementOrdere d By: Renard Burgos on 07-01-2024 Hemoglobin (Bld) [Mass/Vol] 13.6 g/dL 13.0-16.5 [facility] Immature granulocytes/100 WB C Auto (Bld)Ordered By: Renard Burgos on 07-01-2024 Immature granulocytes/100 WBC (Bld) 0.500 % 0.0-0.9 [facility] Comment on above: IG% - Immature Granu locytes (promyelocytes, myelocytes and metamyelocytes) > 1% indicates that a LEFT SHIFT is Present. Lymphocytes Auto (Unsp spec) [#/Vol]Ordered By: Renard Burgos on 07-01-2024 Lymphocytes (Bld) [#/Vol] 2.03 10*3/uL 0.83-4.51 [facility] Lymphocytes/100 WBC Auto (Un sp spec)Ordered By: Renard Burgos on 07-01-2024 Lymphocytes/100 WBC (Bld) 20.3 % 19-41 [facility] MCV (mean corpuscular volume ) determinationOrdered By: Renard Burgso on 07-01-2024 MCV (RBC) [Entitic vol] 90.8 fL 80-94 [facility] Mean corpuscular hemoglobin (MCH) determinationOrdered By: Renard Burgos on 07-01-2024 MCH (RBC) [Entitic mass] 29.6 pg 27.0-32.0 [facility] Mean corpuscular hemoglobin concentration (MCHC) determinationOrdered By: Renard Burgos on 07-01-2024 MCHC (RBC) [Mass/Vol] 32.6 g/dL 32-36 [facility] Mean platelet volume determi nationOrdered By: Renard Burgos on 07-01-2024 Platelet mean volume (Bld) [Entitic vol] 11.0 fL 6.2-12.0 [facility] Monocyte percentageOrdered B y: Renard Burgos on 07-01-2024 Monocytes/100 WBC (Bld) 6.8 % 0-10 [facility] Neutrophil percentageOrdered By: Renard Burgos on 07-01-2024 Neutrophils/100 WBC (Bld) 70.5 % High 47-70 [facility] Nucleated red blood cell per centageOrdered By: Renard Burgos on 07-01-2024 Nucleated RBC/100 WBC (Bld) [Ratio] 0 % 0-5 [facility] Platelet countOrdered By: Garrick Bhatt on 07-01-2024 Platelets (Bld) [#/Vol] 208 10*3/uL 150-450 [facility] RBC Auto (Bld) [#/Vol]Ordere d By: Renard Burgos on 07-01-2024 RBC (Bld) [#/Vol] 4.59 10*6/uL Low 4.6-6.2 [facility] White blood cell (WBC) count Ordered By: Renard Burgos on 07-01-2024 WBC (Bld) [#/Vol] 10.0 10*3/uL 4.4-11.0 [facility] Urine Cultureon 06-30-2024 URC Normal [facility] Comment on above: Performed By: #### M 100.2200, L400.0001 ####[facility] [address] [place], [address] Bilirubin Test strip Ql (U)O rdered By: Renard Burgos on 06-27-2024 Bilirubin Ql (U) Negative Negative [facility] Epithelial cells.squamous LM Ql (Urine sed)Ordered By: Renard Burgos on 06-27-2024 Epithelial cells.squamous LM.HPF (Urine sed) [#/Area] 0 /[HPF] 0-5 [facility] Glucose Ql (U)Ordered By: Garrick Bhatt on 06-27-2024 Urine Glucose (UA) Normal mg/dl Normal [facility] Ketones Test strip Ql (U)Ord ered By: Renard Burgos on 06-27-2024 Ketones Ql (U) Negative Negative [facility] Microscopic analysis of urin e for red blood cells (RBC)Ordered By: Renard Burgos on 06-27-2024 Microscopic analysis of urine for red blood cells (RBC) 0 SEEN /hpf 0-5 [facility] Urine RBC 0 SEEN /hpf 0-5 [facility] Mucus LM Ql (Urine sed)Order ed By: Renard Burgos on 06-27-2024 Mucus Ql (Urine sed) 0 SEEN /hpf [facility] Nitrite Test strip Ql (U)Ord ered By: Renard Burgos on 06-27-2024 Nitrite Ql (U) Negative Negative [facility] Protein Test strip Ql (U)Ord ered By: Renard Burgos on 06-27-2024 Protein Ql (U) 15 mg/dl High Negative [facility] Squamous epithelial cells de tection in urine sediment by light microscopyOrdered By: Renard Burgos on 06-27-2024 Epithelial cells.squamous LM Ql (Urine sed) 0 SEEN /hpf 0-5 [facility] Urinalysis, Completeon 06-27 RBC 0 SEEN Normal 0-5 [facility] Comment on above: Order Comment: ARCHANA TER SPECIMEN Performed By: #### M 100.2200, L400.0001 ####[facility] [address] [place], [place], [id number] Urine blood detectionOrdered By: Renard Burgos on 06-27-2024 Urine Occult Blood Negative Negative [facility] Urine clarityOrdered By: Lyubov Burgos on 06-27-2024 Clarity (U) Clear Clear [facility] Urine color determinationOrd ered By: Renard Burgos on 06-27-2024 Color (U) Yellow Yellow [facility] Urine cultureOrdered By: Lyubov Burgos on 06-27-2024 Bacteria identified Cx Nom (U) Staphylococcus warneri Abnormal [facility] Bacteria identified Cx Nom (U) Aerococcus viridans. Abnormal [facility] Bacteria identified Cx Nom (U) Presumptive C albicans Abnormal [facility] Bacteria identified Cx Nom (U) Staphylococcus warneri Abnormal [facility] Bacteria identified Cx Nom (U) Aerococcus viridans. Abnormal [facility] Bacteria identified Cx Nom (U) Presumptive C albicans Abnormal [facility] Urine glucose detectionOrder ed By: Renard Burgos on 06-27-2024 Glucose Ql (U) Normal mg/dl Normal [facility] Urine leukocyte esterase det ection by dipstickOrdered By: Renard Burgos on 06-27-2024 Leukocyte esterase Test strip Ql (U) Negative Negative [facility] Urine pHOrdered By: Renard ocampo on 06-27-2024 pH (U) 7.0 [pH] 5.0 - 8.0 [facility] Urine sediment bacteria coun t by microscopy (number/high power field)Ordered By: Renard Burgos on 06-27-2024 Bacteria LM.HPF (Urine sed) [#/Area] 0 /[HPF] None Seen [facility] Urine specific gravity measu rementOrdered By: Renard Burgos on 06-27-2024 Specific gravity (U) [Rel density] 1.010 1.002-1.030 [facility] Urine urobilinogen measureme ntOrdered By: Renard Burgos on 06-27-2024 Urobilinogen Ql (U) 4 mg/dl High Normal [facility] Urobilinogen Ql (U)Ordered B y: Renard Burgos on 06-27-2024 Urobilinogen (U) [Mass/Vol] 4 mg/dL High Normal [facility] White blood cell countOrdere d By: Renard Burgos on 06-27-2024 Urine WBC 0 SEEN /hpf 0-5 [facility] White blood cell count 0 SEEN /hpf 0-5 [facility] CT CHEST WO IV CONTRASTon CT CHEST WO IV CONTRAST Patient Name: KATHYA FELDER : 1955 Exam Date/Time: 06/24/2024 16:30 Procedure: [...] 8:07 AM EST Cough x 2months Normal [facility] CT Chest WO contraston 06-26 Nonspecific groundglass densities are noted in the bilateral lower lobes. 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 [facility] Maria Eugenia Ruiz MD - 06/26/2024 Patient Name: KATHYA HOOPER : 1955 Exam [...] Electronically Signed Date/Time: 06/26/2024 8:07 AM EST [employer] CT Chest WO contrastOrdered By: Maria Eugenia Ruiz on 06-26-2024 [employer] Work Phone: Absolute lymphocyte countOrd ered By: Renard Burgos on 06-24-2024 Lymphocytes Auto (Unsp spec) [#/Vol] 1.65 10*3/uL 0.83-4.51 [facility] Absolute neutrophil countOrd ered By: Renard Burgos on 06-24-2024 Neutrophils (Bld) [#/Vol] 10.2 10*3/uL High 2.0-7.7 [facility] Automated lymphocyte count a s percentage of total leukocytesOrdered By: Renard Burgos on 06-24-2024 Lymphocytes/100 WBC Auto (Unsp spec) 12.8 % Low 19-41 [facility] Basic Metabolic Profile (BMP )on 06-24-2024 BUN/CRE 24.9 RATIO High 10-20 [facility] Comment on above: Order Comment: 109.1 Performed By: #### L 100.0100, L500.2500 ####[facility] [address] [place], [address] CA,Total 8.3 mg/dL Low 8.5-10.1 [facility] Comment on above: Order Comment: 109.1 Performed By: #### L 100.0100, L500.2500 ####[facility] [address] [place], [address] Chloride [Moles/Vol] 107 mmol/L Normal 98-107 [facility] Comment on above: Order Comment: 109.1 Performed By: #### L 100.0100, L500.2500 ####[facility] [address] [place], [address] CO2 [Moles/Vol] 24.0 mmol/L Normal 21.0-32.0 [facility] Comment on above: Order Comment: 109.1 Performed By: #### L 100.0100, L500.2500 ####[facility] [address] [place], [address] Creatinine [Mass/Vol] 0.60 mg/dL Low 0.70-1.30 [facility] Comment on above: Order Comment: 109.1 Result Comment: The validity of the calculated GFR GFRAA in patients over70 years has not been determined. Clinical correlation isessential. Performed By: #### L 100.0100, L500.2500 ####[facility] [address] [place], [address] EST GFR - AA 172 mL/min Normal >60 [facility] Comment on above: Order Comment: 109.1 Result Comment: Afri can [place] GFR Calc Performed By: #### L 100.0100, L500.2500 ####[facility] [address] [place], [address] GAP 8 Normal 5-15 [facility] Comment on above: Order Comment: 109.1 Performed By: #### L 100.0100, L500.2500 ####[facility] [address] [place], [address] GFR/1.73 sq M.predicted among non-blacks MDRD (S/P/Bld) [Vol rate/Area] 142 mL/min/{1.73_m2} Normal >60 [facility] Comment on above: Order Comment: 109.1 Result Comment: Non- GFR Calc Performed By: #### L 100.0100, L500.2500 ####[facility] [address] [place], [address] Glucose [Mass/Vol] 101 mg/dL Normal 74-106 [facility] Comment on above: Order Comment: 109.1 Result Comment: Fast ing Glucose result from 100 to 125 mg/dLsuggests IMPAIRED HOMEOSTASIS per A.D.A. criteria. Performed By: #### L 100.0100, L500.2500 ####[facility] [address] [place], [address] Potassium [Moles/Vol] 4.1 mmol/L Normal 3.5-5.1 [facility] Comment on above: Order Comment: 109.1 Performed By: #### L 100.0100, L500.2500 ####[facility] [address] [place], [address] Sodium [Moles/Vol] 139 mmol/L Normal 136-145 [facility] Comment on above: Order Comment: 109.1 Performed By: #### L 100.0100, L500.2500 ####[facility] [address] [place], [address] Urea nitrogen [Mass/Vol] 15 mg/dL Normal 7-18 [facility] Comment on above: Order Comment: 109.1 Performed By: #### L 100.0100, L500.2500 ####[facility] [address] [place], [address] Basophil percentageOrdered B y: Renrad Burgos on 06-24-2024 Basophils/100 WBC (Bld) 0.5 % 0-1 [facility] Blood urea nitrogen (BUN)/cr eatinine ratioOrdered By: Renard Burgos on 06-24-2024 Urea nitrogen/Creatinine [Mass ratio] 24.9 mg/mg High 10-20 [facility] CBC W/Diff, Automatedon - Absolute Lymph 1.65 X10 3/uL Normal 0.83-4.51 [facility] Comment on above: Order Comment: 109.1 Performed By: #### L 100.0100, L500.2500 ####[facility] [address] [place], [address] Absolute Neut 10.2 X10 3/uL High 2.0-7.7 [facility] Comment on above: Order Comment: 109.1 Performed By: #### L 100.0100, L500.2500 ####[facility] [address] [place], [address] Basophils/100 WBC (Bld) 0.5 % Normal 0-1 [facility] Comment on above: Order Comment: 109.1 Performed By: #### L 100.0100, L500.2500 ####[facility] [address] [place], [address] Eosinophils/100 WBC (Bld) 0.8 % Normal 0-5 [facility] Comment on above: Order Comment: 109.1 Performed By: #### L 100.0100, L500.2500 ####[facility] [address] [place], [address] Erythrocyte distribution width (RBC) [Ratio] 13.2 % Normal 11.6-14.6 [facility] Comment on above: Order Comment: 109.1 Performed By: #### L 100.0100, L500.2500 ####[facility] [address] [place], [address] Hematocrit (Bld) [Volume fraction] 41.8 % Normal 40-54 [facility] Comment on above: Order Comment: 109.1 Performed By: #### L 100.0100, L500.2500 ####[facility] [address] [place], [address] Hemoglobin (Bld) [Mass/Vol] 13.6 g/dL Normal 13.0-16.5 [facility] Comment on above: Order Comment: 109.1 Performed By: #### L 100.0100, L500.2500 ####[facility] [address] [place], [address] IG% 0.500 Normal 0.0-0.9 [facility] Comment on above: Order Comment: 109.1 Result Comment: IG% - Immature Granulocytes (promyelocytes, myelocytes andmetamyelocytes) > 1% indicates that a LEFT SHIFT is Present. Performed By: #### L 100.0100, L500.2500 ####[facility] [address] [place], [address] Lymphocytes/100 WBC (Bld) 12.8 % Low 19-41 [facility] Comment on above: Order Comment: 109.1 Performed By: #### L 100.0100, L500.2500 ####[facility] [address] [place], [address] MCH (RBC) [Entitic mass] 30.2 pg Normal 27.0-32.0 [facility] Comment on above: Order Comment: 109.1 Performed By: #### L 100.0100, L500.2500 ####[facility] [address] [place], [address] MCHC (RBC) [Mass/Vol] 32.5 g/dL Normal 32-36 [facility] Comment on above: Order Comment: 109.1 Performed By: #### L 100.0100, L500.2500 ####[facility] [address] [place], [address] MCV (RBC) [Entitic vol] 92.7 fL Normal 80-94 [facility] Comment on above: Order Comment: 109.1 Performed By: #### L 100.0100, L500.2500 ####[facility] [address] [place], [address] Monocytes/100 WBC (Bld) 6.4 % Normal 0-10 [facility] Comment on above: Order Comment: 109.1 Performed By: #### L 100.0100, L500.2500 ####[facility] [address] [place], [address] Neutrophils/100 WBC (Bld) 79.0 % High 47-70 [facility] Comment on above: Order Comment: 109.1 Performed By: #### L 100.0100, L500.2500 ####[facility] [address] [place], [address] Nucleated RBC (Bld) [#/Vol] 0 10*3/uL Normal 0-5 [facility] Comment on above: Order Comment: 109.1 Performed By: #### L 100.0100, L500.2500 ####[facility] [address] [place], [address] Platelet mean volume (Bld) [Entitic vol] 11.3 fL Normal 6.2-12.0 [facility] Comment on above: Order Comment: 109.1 Performed By: #### L 100.0100, L500.2500 ####[facility] [address] [place], [address] Platelets (Bld) [#/Vol] 171 10*3/uL Normal 150-450 [facility] Comment on above: Order Comment: 109.1 Performed By: #### L 100.0100, L500.2500 ####[facility] [address] [place], [address] RBC (Bld) [#/Vol] 4.51 10*6/uL Low 4.6-6.2 [facility] Comment on above: Order Comment: 109.1 Performed By: #### L 100.0100, L500.2500 ####[facility] [address] [place], [address] RDW SD 45.1 fl High 35.1-43.9 [facility] Comment on above: Order Comment: 109.1 Performed By: #### L 100.0100, L500.2500 ####[facility] [address] [place], [address] WBC (Bld) [#/Vol] 12.9 10*3/uL High 4.4-11.0 [facility] Comment on above: Order Comment: 109.1 Performed By: #### L 100.0100, L500.2500 ####[facility] [address] [place], [address] CT Chest WO contraston 06-24 Radiology Study observation (narrative) Estefania smith Carbon dioxide measurementOr dered By: Renard Burgos on 06-24-2024 CO2 [Moles/Vol] 24.0 mmol/L 21.0-32.0 [facility] Chloride measurementOrdered By: Renard Burgos on 06-24-2024 Chloride [Moles/Vol] 107 mmol/L 98-107 [facility] Eosinophil percentageOrdered By: Renard Burgos on 06-24-2024 Eosinophils/100 WBC (Bld) 0.8 % 0-5 [facility] Erythrocyte distribution wid th ratioOrdered By: Renard Burgos on 06-24-2024 Erythrocyte distribution width (RBC) [Ratio] 13.2 % 11.6-14.6 [facility] Erythrocyte distribution wid th standard deviationOrdered By: Renard Burgos on 06-24-2024 Erythrocyte distribution width (RBC) [Entitic vol] 45.1 fL High 35.1-43.9 [facility] Erythrocyte distribution width (RBC) [Ratio] 45.1 fl High 35.1-43.9 [facility] Estimated glomerular filtrat ion rate (GFR) AmericanOrdered By: Renard Burgos on 06-24-2024 Estimated GFR (MDRD) Amer 172 mL/min >60 [facility] Comment on above: GFR Calc Glomerular filtration rate ( GFR) estimationOrdered By: Renard Burgos on 06-24-2024 Estimated GFR (MDRD) Non-Af Amer 142 mL/min >60 [facility] Comment on above: Non- GFR Calc GFR/1.73 sq M.predicted among non-blacks MDRD (S/P/Bld) [Vol rate/Area] 142 mL/min/{1.73_m2} >60 [facility] Comment on above: Non- GFR Calc Glucose measurementOrdered B y: Renard Burgos on 06-24-2024 Glucose [Mass/Vol] 101 mg/dL 74-106 [facility] Comment on above: Fasting Glucose resu lt from 100 to 125 mg/dL suggests IMPAIRED HOMEOSTASIS per A.D.A. criteria. Hematocrit Auto (Bld) [Volum e fraction]Ordered By: Renard Burgos on 06-24-2024 Hematocrit (Bld) [Volume fraction] 41.8 % 40-54 [facility] Hemoglobin measurementOrdere d By: Renard Burgos on 06-24-2024 Hemoglobin (Bld) [Mass/Vol] 13.6 g/dL 13.0-16.5 [facility] Immature granulocytes/100 WB C Auto (Bld)Ordered By: Renard Burgos on 06-24-2024 Immature granulocytes/100 WBC (Bld) 0.500 % 0.0-0.9 [facility] Comment on above: IG% - Immature Granu locytes (promyelocytes, myelocytes and metamyelocytes) > 1% indicates that a LEFT SHIFT is Present. Lymphocytes Auto (Unsp spec) [#/Vol]Ordered By: Renard Burgos on 06-24-2024 Lymphocytes (Bld) [#/Vol] 1.65 10*3/uL 0.83-4.51 [facility] Lymphocytes/100 WBC Auto (Un sp spec)Ordered By: Renard Burgos on 06-24-2024 Lymphocytes/100 WBC (Bld) 12.8 % Low 19-41 [facility] MCV (mean corpuscular volume ) determinationOrdered By: Renard Burgos on 06-24-2024 MCV (RBC) [Entitic vol] 92.7 fL 80-94 [facility] Mean corpuscular hemoglobin (MCH) determinationOrdered By: Renard Burgos on 06-24-2024 MCH (RBC) [Entitic mass] 30.2 pg 27.0-32.0 [facility] Mean corpuscular hemoglobin concentration (MCHC) determinationOrdered By: Renard Burgos on 06-24-2024 MCHC (RBC) [Mass/Vol] 32.5 g/dL 32-36 [facility] Mean platelet volume determi nationOrdered By: Renard Burgos on 06-24-2024 Platelet mean volume (Bld) [Entitic vol] 11.3 fL 6.2-12.0 [facility] Monocyte percentageOrdered B y: Renard Burgos on 06-24-2024 Monocytes/100 WBC (Bld) 6.4 % 0-10 [facility] Neutrophil percentageOrdered By: Renard Burgos on 06-24-2024 Neutrophils/100 WBC (Bld) 79.0 % High 47-70 [facility] Nucleated red blood cell per centageOrdered By: Renard Burgos on 06-24-2024 Nucleated RBC/100 WBC (Bld) [Ratio] 0 % 0-5 [facility] Platelet countOrdered By: Garrick Bhatt on 06-24-2024 Platelets (Bld) [#/Vol] 171 10*3/uL 150-450 [facility] Potassium measurementOrdered By: Renard Burgos on 06-24-2024 Potassium [Moles/Vol] 4.1 mmol/L 3.5-5.1 [facility] RBC Auto (Bld) [#/Vol]Ordere d By: Renard Burgos on 06-24-2024 RBC (Bld) [#/Vol] 4.51 10*6/uL Low 4.6-6.2 [facility] Serum anion gap measurementO rdered By: Renard Burgos on 06-24-2024 Anion gap [Moles/Vol] 8 mmol/L 5-15 [facility] Serum or plasma calcium gordy urement (mass/volume)Ordered By: Renard Burgos on 06-24-2024 Calcium [Mass/Vol] 8.3 mg/dL Low 8.5-10.1 [facility] Serum or plasma creatinine m easurement (mass/volume)Ordered By: Renard Burgos on 06-24-2024 Creatinine [Mass/Vol] 0.60 mg/dL Low 0.70-1.30 [facility] Comment on above: The validity of the calculated GFR & GFRAA in patients over 70 years has not been determined. Clinical correlation is essential. Serum or plasma urea nitroge n measurement (mass/volume)Ordered By: Renard Burgos on 06-24-2024 Urea nitrogen [Mass/Vol] 15 mg/dL 7-18 [facility] Sodium levelOrdered By: Lamine Burgos on 06-24-2024 Sodium [Moles/Vol] 139 mmol/L 136-145 [facility] White blood cell (WBC) count Ordered By: Renard Burgos on 06-24-2024 WBC (Bld) [#/Vol] 12.9 10*3/uL High 4.4-11.0 [facility] Absolute lymphocyte countOrd ered By: Renard Burgos on 06-17-2024 Lymphocytes Auto (Unsp spec) [#/Vol] 2.00 10*3/uL 0.83-4.51 [facility] Absolute neutrophil countOrd ered By: Renard Burgos on 06-17-2024 Neutrophils (Bld) [#/Vol] 5.1 10*3/uL 2.0-7.7 [facility] Automated lymphocyte count a s percentage of total leukocytesOrdered By: Renard Burgos on 06-17-2024 Lymphocytes/100 WBC Auto (Unsp spec) 24.5 % 19-41 [facility] Basophil percentageOrdered B y: Renard Burgos on 06-17-2024 Basophils/100 WBC (Bld) 1.1 % High 0-1 [facility] CBC W/Diff, Automatedon 06-01 Absolute Lymph 2.00 X10 3/uL Normal 0.83-4.51 [facility] Comment on above: Order Comment: 109-1 Performed By: #### L 100.0100 ####[facility] [address] [place], [address] Absolute Neut 5.1 X10 3/uL Normal 2.0-7.7 [facility] Comment on above: Order Comment: 109-1 Performed By: #### L 100.0100 ####[facility] [address] [place], [address] Basophils/100 WBC (Bld) 1.1 % High 0-1 [facility] Comment on above: Order Comment: 109-1 Performed By: #### L 100.0100 ####[facility] [address] [place], [address] Eosinophils/100 WBC (Bld) 3.4 % Normal 0-5 [facility] Comment on above: Order Comment: 109-1 Performed By: #### L 100.0100 ####[facility] [address] [place], [address] Erythrocyte distribution width (RBC) [Ratio] 13.3 % Normal 11.6-14.6 [facility] Comment on above: Order Comment: 109-1 Performed By: #### L 100.0100 ####[facility] [address] [place], [address] Hematocrit (Bld) [Volume fraction] 39.3 % Low 40-54 [facility] Comment on above: Order Comment: 109-1 Performed By: #### L 100.0100 ####[facility] [address] [place], [address] Hemoglobin (Bld) [Mass/Vol] 12.8 g/dL Low 13.0-16.5 [facility] Comment on above: Order Comment: 109-1 Performed By: #### L 100.0100 ####[facility] [address] [place], [address] IG% 0.200 Normal 0.0-0.9 [facility] Comment on above: Order Comment: 109-1 Result Comment: IG% - Immature Granulocytes (promyelocytes, myelocytes andmetamyelocytes) > 1% indicates that a LEFT SHIFT is Present. Performed By: #### L 100.0100 ####[facility] [address] [place], [address] Lymphocytes/100 WBC (Bld) 24.5 % Normal 19-41 [facility] Comment on above: Order Comment: 109-1 Performed By: #### L 100.0100 ####[facility] [address] [place], [address] MCH (RBC) [Entitic mass] 29.6 pg Normal 27.0-32.0 [facility] Comment on above: Order Comment: 109-1 Performed By: #### L 100.0100 ####[facility] [address] [place], [address] MCHC (RBC) [Mass/Vol] 32.6 g/dL Normal 32-36 [facility] Comment on above: Order Comment: 109-1 Performed By: #### L 100.0100 ####[facility] [address] [place], [address] MCV (RBC) [Entitic vol] 90.8 fL Normal 80-94 [facility] Comment on above: Order Comment: 109-1 Performed By: #### L 100.0100 ####[facility] [address] [place], [address] Monocytes/100 WBC (Bld) 8.8 % Normal 0-10 [facility] Comment on above: Order Comment: 109-1 Performed By: #### L 100.0100 ####[facility] [address] [place], [address] Neutrophils/100 WBC (Bld) 62.0 % Normal 47-70 [facility] Comment on above: Order Comment: 109-1 Performed By: #### L 100.0100 ####[facility] [address] [place], [address] Nucleated RBC (Bld) [#/Vol] 0 10*3/uL Normal 0-5 [facility] Comment on above: Order Comment: 109-1 Performed By: #### L 100.0100 ####[facility] [address] [place], [address] Platelet mean volume (Bld) [Entitic vol] 10.9 fL Normal 6.2-12.0 [facility] Comment on above: Order Comment: 109-1 Performed By: #### L 100.0100 ####[facility] [address] [place], [address] Platelets (Bld) [#/Vol] 218 10*3/uL Normal 150-450 [facility] Comment on above: Order Comment: 109-1 Performed By: #### L 100.0100 ####[facility] [address] [place], [address] RBC (Bld) [#/Vol] 4.33 10*6/uL Low 4.6-6.2 [facility] Comment on above: Order Comment: 109-1 Performed By: #### L 100.0100 ####[facility] [address] [place], [address] RDW SD 44.0 fl High 35.1-43.9 [facility] Comment on above: Order Comment: 109-1 Performed By: #### L 100.0100 ####[facility] [address] [place], [address] WBC (Bld) [#/Vol] 8.2 10*3/uL Normal 4.4-11.0 [facility] Comment on above: Order Comment: 109-1 Performed By: #### L 100.0100 ####[facility] [address] [place], [address] Eosinophil percentageOrdered By: Renard Burgos on 06-17-2024 Eosinophils/100 WBC (Bld) 3.4 % 0-5 [facility] Erythrocyte distribution wid th ratioOrdered By: Renard Burgos on 06-17-2024 Erythrocyte distribution width (RBC) [Ratio] 13.3 % 11.6-14.6 [facility] Erythrocyte distribution wid th standard deviationOrdered By: Renard Burgos on 06-17-2024 Erythrocyte distribution width (RBC) [Entitic vol] 44.0 fL High 35.1-43.9 [facility] Erythrocyte distribution width (RBC) [Ratio] 44.0 fl High 35.1-43.9 [facility] Hematocrit Auto (Bld) [Volum e fraction]Ordered By: Renard Burgos on 06-17-2024 Hematocrit (Bld) [Volume fraction] 39.3 % Low 40-54 [facility] Hemoglobin measurementOrdere d By: Renard Burgos on 06-17-2024 Hemoglobin (Bld) [Mass/Vol] 12.8 g/dL Low 13.0-16.5 [facility] Immature granulocytes/100 WB C Auto (Bld)Ordered By: Renard Burgos on 06-17-2024 Immature granulocytes/100 WBC (Bld) 0.200 % 0.0-0.9 [facility] Comment on above: IG% - Immature Granu locytes (promyelocytes, myelocytes and metamyelocytes) > 1% indicates that a LEFT SHIFT is Present. Lymphocytes Auto (Unsp spec) [#/Vol]Ordered By: Renard Burgos on 06-17-2024 Lymphocytes (Bld) [#/Vol] 2.00 10*3/uL 0.83-4.51 [facility] Lymphocytes/100 WBC Auto (Un sp spec)Ordered By: Renard Burgos on 06-17-2024 Lymphocytes/100 WBC (Bld) 24.5 % 19-41 [facility] MCV (mean corpuscular volume ) determinationOrdered By: Renard Burgos on 06-17-2024 MCV (RBC) [Entitic vol] 90.8 fL 80-94 [facility] Mean corpuscular hemoglobin (MCH) determinationOrdered By: Renard Burgos on 06-17-2024 MCH (RBC) [Entitic mass] 29.6 pg 27.0-32.0 [facility] Mean corpuscular hemoglobin concentration (MCHC) determinationOrdered By: Renard Burgos on 06-17-2024 MCHC (RBC) [Mass/Vol] 32.6 g/dL 32-36 [facility] Mean platelet volume determi nationOrdered By: Renard Burgos on 06-17-2024 Platelet mean volume (Bld) [Entitic vol] 10.9 fL 6.2-12.0 [facility] Monocyte percentageOrdered B y: Renard Burgos on 06-17-2024 Monocytes/100 WBC (Bld) 8.8 % 0-10 [facility] Neutrophil percentageOrdered By: Renard Burgos on 06-17-2024 Neutrophils/100 WBC (Bld) 62.0 % 47-70 [facility] Nucleated red blood cell per centageOrdered By: Renard Burgos on 06-17-2024 Nucleated RBC/100 WBC (Bld) [Ratio] 0 % 0-5 [facility] Platelet countOrdered By: Garrick Bhatt on 06-17-2024 Platelets (Bld) [#/Vol] 218 10*3/uL 150-450 [facility] RBC Auto (Bld) [#/Vol]Ordere d By: Renard Burgos on 06-17-2024 RBC (Bld) [#/Vol] 4.33 10*6/uL Low 4.6-6.2 [facility] White blood cell (WBC) count Ordered By: Renard Burgos on 06-17-2024 WBC (Bld) [#/Vol] 8.2 10*3/uL 4.4-11.0 [facility] Absolute lymphocyte countOrd ered By: Renard Burgos on 06-10-2024 Lymphocytes Auto (Unsp spec) [#/Vol] 2.38 10*3/uL 0.83-4.51 [facility] Absolute neutrophil countOrd ered By: Renard Burgos on 06-10-2024 Neutrophils (Bld) [#/Vol] 5.3 10*3/uL 2.0-7.7 [facility] Automated lymphocyte count a s percentage of total leukocytesOrdered By: Renard Burgos on 06-10-2024 Lymphocytes/100 WBC Auto (Unsp spec) 27.5 % 19-41 [facility] Basophil percentageOrdered B y: Renard Burgos on 06-10-2024 Basophils/100 WBC (Bld) 0.7 % 0-1 [facility] CBC W/Diff, Automatedon 06-01 0-2024 Absolute Lymph 2.38 X10 3/uL Normal 0.83-4.51 [facility] Comment on above: Order Comment: 109.1 Performed By: #### L 100.0100 ####[facility] [address] [place], [address] Absolute Neut 5.3 X10 3/uL Normal 2.0-7.7 [facility] Comment on above: Order Comment: 109.1 Performed By: #### L 100.0100 ####[facility] [address] [place], [address] Basophils/100 WBC (Bld) 0.7 % Normal 0-1 [facility] Comment on above: Order Comment: 109.1 Performed By: #### L 100.0100 ####[facility] [address] [place], [address] Eosinophils/100 WBC (Bld) 0.7 % Normal 0-5 [facility] Comment on above: Order Comment: 109.1 Performed By: #### L 100.0100 ####[facility] [address] [place], [address] Erythrocyte distribution width (RBC) [Ratio] 13.1 % Normal 11.6-14.6 [facility] Comment on above: Order Comment: 109.1 Performed By: #### L 100.0100 ####[facility] [address] [place], [address] Hematocrit (Bld) [Volume fraction] 41.1 % Normal 40-54 [facility] Comment on above: Order Comment: 109.1 Performed By: #### L 100.0100 ####[facility] [address] [place], [address] Hemoglobin (Bld) [Mass/Vol] 13.5 g/dL Normal 13.0-16.5 [facility] Comment on above: Order Comment: 109.1 Performed By: #### L 100.0100 ####[facility] [address] [place], [address] IG% 0.500 Normal 0.0-0.9 [facility] Comment on above: Order Comment: 109.1 Result Comment: IG% - Immature Granulocytes (promyelocytes, myelocytes andmetamyelocytes) > 1% indicates that a LEFT SHIFT is Present. Performed By: #### L 100.0100 ####[facility] [address] [place], [address] Lymphocytes/100 WBC (Bld) 27.5 % Normal 19-41 [facility] Comment on above: Order Comment: 109.1 Performed By: #### L 100.0100 ####[facility] [address] [place], [address] MCH (RBC) [Entitic mass] 30.1 pg Normal 27.0-32.0 [facility] Comment on above: Order Comment: 109.1 Performed By: #### L 100.0100 ####[facility] [address] [place], [address] MCHC (RBC) [Mass/Vol] 32.8 g/dL Normal 32-36 [facility] Comment on above: Order Comment: 109.1 Performed By: #### L 100.0100 ####[facility] [address] [place], [address] MCV (RBC) [Entitic vol] 91.7 fL Normal 80-94 [facility] Comment on above: Order Comment: 109.1 Performed By: #### L 100.0100 ####[facility] [address] [place], [address] Monocytes/100 WBC (Bld) 9.6 % Normal 0-10 [facility] Comment on above: Order Comment: 109.1 Performed By: #### L 100.0100 ####[facility] [address] [place], [address] Neutrophils/100 WBC (Bld) 61.0 % Normal 47-70 [facility] Comment on above: Order Comment: 109.1 Performed By: #### L 100.0100 ####[facility] [address] [place], [address] Nucleated RBC (Bld) [#/Vol] 0 10*3/uL Normal 0-5 [facility] Comment on above: Order Comment: 109.1 Performed By: #### L 100.0100 ####[facility] [address] [place], [address] Platelet mean volume (Bld) [Entitic vol] 11.0 fL Normal 6.2-12.0 [facility] Comment on above: Order Comment: 109.1 Performed By: #### L 100.0100 ####[facility] [address] [place], [address] Platelets (Bld) [#/Vol] 261 10*3/uL Normal 150-450 [facility] Comment on above: Order Comment: 109.1 Performed By: #### L 100.0100 ####[facility] [address] [place], [address] RBC (Bld) [#/Vol] 4.48 10*6/uL Low 4.6-6.2 [facility] Comment on above: Order Comment: 109.1 Performed By: #### L 100.0100 ####[facility] [address] [place], [address] RDW SD 43.2 fl Normal 35.1-43.9 [facility] Comment on above: Order Comment: 109.1 Performed By: #### L 100.0100 ####[facility] [address] [place], [address] WBC (Bld) [#/Vol] 8.6 10*3/uL Normal 4.4-11.0 [facility] Comment on above: Order Comment: 109.1 Performed By: #### L 100.0100 ####[facility] [address] [place], [address] Eosinophil percentageOrdered By: Renard Burgos on 06-10-2024 Eosinophils/100 WBC (Bld) 0.7 % 0-5 [facility] Erythrocyte distribution wid th ratioOrdered By: Renard Burgos on 06-10-2024 Erythrocyte distribution width (RBC) [Ratio] 13.1 % 11.6-14.6 [facility] Erythrocyte distribution wid th standard deviationOrdered By: Renard Burgos on 06-10-2024 Erythrocyte distribution width (RBC) [Entitic vol] 43.2 fL 35.1-43.9 [facility] Erythrocyte distribution width (RBC) [Ratio] 43.2 fl 35.1-43.9 [facility] Hematocrit Auto (Bld) [Volum e fraction]Ordered By: Renard Burgos on 06-10-2024 Hematocrit (Bld) [Volume fraction] 41.1 % 40-54 [facility] Hemoglobin measurementOrdere d By: Renard Burgos on 06-10-2024 Hemoglobin (Bld) [Mass/Vol] 13.5 g/dL 13.0-16.5 [facility] Immature granulocytes/100 WB C Auto (Bld)Ordered By: Renard Burgos on 06-10-2024 Immature granulocytes/100 WBC (Bld) 0.500 % 0.0-0.9 [facility] Comment on above: IG% - Immature Granu locytes (promyelocytes, myelocytes and metamyelocytes) > 1% indicates that a LEFT SHIFT is Present. Lymphocytes Auto (Unsp spec) [#/Vol]Ordered By: Renard Burgos on 06-10-2024 Lymphocytes (Bld) [#/Vol] 2.38 10*3/uL 0.83-4.51 [facility] Lymphocytes/100 WBC Auto (Un sp spec)Ordered By: Renard Burgos on 06-10-2024 Lymphocytes/100 WBC (Bld) 27.5 % 19-41 [facility] MCV (mean corpuscular volume ) determinationOrdered By: Renard Burgos on 06-10-2024 MCV (RBC) [Entitic vol] 91.7 fL 80-94 [facility] Mean corpuscular hemoglobin (MCH) determinationOrdered By: Renard Burgos on 06-10-2024 MCH (RBC) [Entitic mass] 30.1 pg 27.0-32.0 [facility] Mean corpuscular hemoglobin concentration (MCHC) determinationOrdered By: Renard Burgos on 06-10-2024 MCHC (RBC) [Mass/Vol] 32.8 g/dL 32-36 [facility] Mean platelet volume determi nationOrdered By: Renard Burgos on 06-10-2024 Platelet mean volume (Bld) [Entitic vol] 11.0 fL 6.2-12.0 [facility] Monocyte percentageOrdered B y: Renard Burgos on 06-10-2024 Monocytes/100 WBC (Bld) 9.6 % 0-10 [facility] Neutrophil percentageOrdered By: Renard Burgos on 06-10-2024 Neutrophils/100 WBC (Bld) 61.0 % 47-70 [facility] Nucleated red blood cell per centageOrdered By: Renard Burgos on 06-10-2024 Nucleated RBC/100 WBC (Bld) [Ratio] 0 % 0-5 [facility] Platelet countOrdered By: Garrick Bhatt on 06-10-2024 Platelets (Bld) [#/Vol] 261 10*3/uL 150-450 [facility] RBC Auto (Bld) [#/Vol]Ordere d By: Renard Burgos on 06-10-2024 RBC (Bld) [#/Vol] 4.48 10*6/uL Low 4.6-6.2 [facility] Urine Cultureon 06-10-2024 URC Normal [facility] Comment on above: Performed By: #### M 100.2200, L400.0001 ####[facility] [address] [place], [place], [id number] White blood cell (WBC) count Ordered By: Renard Burgos on 06-10-2024 WBC (Bld) [#/Vol] 8.6 10*3/uL 4.4-11.0 [facility] Bilirubin Test strip Ql (U)O rdered By: Renard Burgos on 06-07-2024 Bilirubin Ql (U) Negative Negative [facility] CBC-Complete Blood Cnt No Di ffon 06-07-2024 Erythrocyte distribution width (RBC) [Ratio] 13.0 % Normal 11.6-14.6 [facility] Comment on above: Order Comment: 109-1 Performed By: #### L 100.0500 ####[facility] [address] [place], [address] Hematocrit (Bld) [Volume fraction] 39.3 % Low 40-54 [facility] Comment on above: Order Comment: 109-1 Performed By: #### L 100.0500 ####[facility] [address] [place], [address] Hemoglobin (Bld) [Mass/Vol] 13.0 g/dL Normal 13.0-16.5 [facility] Comment on above: Order Comment: 109-1 Performed By: #### L 100.0500 ####[facility] [address] [place], [address] MCH (RBC) [Entitic mass] 30.2 pg Normal 27.0-32.0 [facility] Comment on above: Order Comment: 109-1 Performed By: #### L 100.0500 ####[facility] [address] [place], [address] MCHC (RBC) [Mass/Vol] 33.1 g/dL Normal 32-36 [facility] Comment on above: Order Comment: 109-1 Performed By: #### L 100.0500 ####[facility] [address] [place], [address] MCV (RBC) [Entitic vol] 91.2 fL Normal 80-94 [facility] Comment on above: Order Comment: 109-1 Performed By: #### L 100.0500 ####[facility] [address] [place], [address] Platelet mean volume (Bld) [Entitic vol] 10.8 fL Normal 6.2-12.0 [facility] Comment on above: Order Comment: 109-1 Performed By: #### L 100.0500 ####[facility] [address] [place], [address] Platelets (Bld) [#/Vol] 251 10*3/uL Normal 150-450 [facility] Comment on above: Order Comment: 109-1 Performed By: #### L 100.0500 ####[facility] [address] [place], [address] RBC (Bld) [#/Vol] 4.31 10*6/uL Low 4.6-6.2 [facility] Comment on above: Order Comment: 109-1 Performed By: #### L 100.0500 ####[facility] [address] [place], [address] RDW SD 43.7 fl Normal 35.1-43.9 [facility] Comment on above: Order Comment: 109-1 Performed By: #### L 100.0500 ####[facility] [address] [place], [address] WBC (Bld) [#/Vol] 9.9 10*3/uL Normal 4.4-11.0 [facility] Comment on above: Order Comment: 109-1 Performed By: #### L 100.0500 ####[facility] [address] [place], [address] Epithelial cells.squamous LM Ql (Urine sed)Ordered By: Renard Burgos on 06-07-2024 Epithelial cells.squamous LM.HPF (Urine sed) [#/Area] 0 /[HPF] 0-5 [facility] Erythrocyte distribution wid th ratioOrdered By: Renard Burgos on 06-07-2024 Erythrocyte distribution width (RBC) [Ratio] 13.0 % 11.6-14.6 [facility] Erythrocyte distribution wid th standard deviationOrdered By: Renard Burgos on 06-07-2024 Erythrocyte distribution width (RBC) [Entitic vol] 43.7 fL 35.1-43.9 [facility] Erythrocyte distribution width (RBC) [Ratio] 43.7 fl 35.1-43.9 [facility] Glucose Ql (U)Ordered By: Garrick Bhatt on 06-07-2024 Urine Glucose (UA) Normal mg/dl Normal [facility] Hematocrit Auto (Bld) [Volum e fraction]Ordered By: Renard Burgos on 06-07-2024 Hematocrit (Bld) [Volume fraction] 39.3 % Low 40-54 [facility] Hemoglobin measurementOrdere d By: Renard Burgos on 06-07-2024 Hemoglobin (Bld) [Mass/Vol] 13.0 g/dL 13.0-16.5 [facility] Ketones Test strip Ql (U)Ord ered By: Renard Burgos on 06-07-2024 Ketones Ql (U) Negative Negative [facility] MCV (mean corpuscular volume ) determinationOrdered By: Renard Burgos on 06-07-2024 MCV (RBC) [Entitic vol] 91.2 fL 80-94 [facility] Mean corpuscular hemoglobin (MCH) determinationOrdered By: Renard Burgos on 06-07-2024 MCH (RBC) [Entitic mass] 30.2 pg 27.0-32.0 [facility] Mean corpuscular hemoglobin concentration (MCHC) determinationOrdered By: Renard Burgos on 06-07-2024 MCHC (RBC) [Mass/Vol] 33.1 g/dL 32-36 [facility] Mean platelet volume determi nationOrdered By: Renard Burgos on 06-07-2024 Platelet mean volume (Bld) [Entitic vol] 10.8 fL 6.2-12.0 [facility] Microscopic analysis of urin e for red blood cells (RBC)Ordered By: Renard Burgos on 06-07-2024 Microscopic analysis of urine for red blood cells (RBC) 0 SEEN /hpf 0-5 [facility] Urine RBC 0 SEEN /hpf 0-5 [facility] Mucus LM Ql (Urine sed)Order ed By: Renard Burgos on 06-07-2024 Mucus Ql (Urine sed) 0 SEEN /hpf [facility] Nitrite Test strip Ql (U)Ord ered By: Renard Burgos on 06-07-2024 Nitrite Ql (U) Negative Negative [facility] Platelet countOrdered By: Garrick Bhatt on 06-07-2024 Platelets (Bld) [#/Vol] 251 10*3/uL 150-450 [facility] Protein Test strip Ql (U)Ord ered By: Renard Burgos on 06-07-2024 Protein Ql (U) 15 mg/dl High Negative [facility] RBC Auto (Bld) [#/Vol]Ordere d By: Renard Burgos on 06-07-2024 RBC (Bld) [#/Vol] 4.31 10*6/uL Low 4.6-6.2 [facility] Squamous epithelial cells de tection in urine sediment by light microscopyOrdered By: Renard Burgos on 06-07-2024 Epithelial cells.squamous LM Ql (Urine sed) 0-5 SEEN /hpf 0-5 [facility] Urinalysis, Completeon 06-07 Mucus Ql (Urine sed) 0 SEEN Normal [facility] Comment on above: Order Comment: CLEAN CATCH Performed By: #### M 100.2200, L400.0001 ####[facility] [address] [place], [address] Urine blood detectionOrdered By: Renard Burgos on 06-07-2024 Urine Occult Blood Negative Negative [facility] Urine clarityOrdered By: Lyubov Burgos on 06-07-2024 Clarity (U) Clear Clear [facility] Urine color determinationOrd ered By: Renard Burgos on 06-07-2024 Color (U) Yellow Yellow [facility] Urine cultureOrdered By: Lyubov Burgos on 06-07-2024 Bacteria identified Cx Nom (U) Pseudomonas aeruginosa Abnormal [facility] Bacteria identified Cx Nom (U) Pseudomonas aeruginosa Abnormal [facility] Urine glucose detectionOrder ed By: Renard Burgos on 06-07-2024 Glucose Ql (U) Normal mg/dl Normal [facility] Urine leukocyte esterase det ection by dipstickOrdered By: Renard Burgos on 06-07-2024 Leukocyte esterase Test strip Ql (U) Negative Negative [facility] Urine pHOrdered By: Renard ocampo on 06-07-2024 pH (U) 7.0 [pH] 5.0 - 8.0 [facility] Urine sediment bacteria coun t by microscopy (number/high power field)Ordered By: Renard Burgos on 06-07-2024 Bacteria LM.HPF (Urine sed) [#/Area] 2 /[HPF] None Seen [facility] Urine sediment yeast count b y microscopy (number/high powered field)Ordered By: Renard Burgos on 06-07-2024 Yeast LM.HPF (Urine sed) [#/Area] 1 /[HPF] None Seen [facility] Urine specific gravity measu rementOrdered By: Renard Burgos on 06-07-2024 Specific gravity (U) [Rel density] 1.010 1.002-1.030 [facility] Urine urobilinogen measureme ntOrdered By: Renard Burgos on 06-07-2024 Urobilinogen Ql (U) 1 mg/dl High Normal [facility] Urobilinogen Ql (U)Ordered B y: Renard Burgos on 06-07-2024 Urobilinogen (U) [Mass/Vol] 1 mg/dL High Normal [facility] White blood cell (WBC) count Ordered By: Renard Burgos on 06-07-2024 WBC (Bld) [#/Vol] 9.9 10*3/uL 4.4-11.0 [facility] White blood cell countOrdere d By: Renard Burgos on 06-07-2024 Urine WBC 0-5 SEEN /hpf 0-5 [facility] White blood cell count 0-5 SEEN /hpf 0-5 [facility] Yeast LM.HPF (Urine sed) [#/ Area]Ordered By: Renard Burgos on 06-07-2024 Urine Yeast 1+ /hpf None Seen [facility] Absolute lymphocyte countOrd ered By: Renard Burgos on 06-03-2024 Lymphocytes Auto (Unsp spec) [#/Vol] 1.94 10*3/uL 0.83-4.51 [facility] Absolute neutrophil countOrd ered By: Renard Burgos on 06-03-2024 Neutrophils (Bld) [#/Vol] 9.5 10*3/uL High 2.0-7.7 [facility] Automated lymphocyte count a s percentage of total leukocytesOrdered By: Renard Burgos on 06-03-2024 Lymphocytes/100 WBC Auto (Unsp spec) 15.7 % Low 19-41 [facility] Basophil percentageOrdered B y: Renard Burgos on 06-03-2024 Basophils/100 WBC (Bld) 0.5 % 0-1 [facility] CBC W/Diff, Automatedon Absolute Lymph 1.94 X10 3/uL Normal 0.83-4.51 [facility] Comment on above: Order Comment: 109-1 Performed By: #### L 100.0100 ####[facility] [address] [place], [address] Absolute Neut 9.5 X10 3/uL High 2.0-7.7 [facility] Comment on above: Order Comment: 109-1 Performed By: #### L 100.0100 ####[facility] [address] [place], [address] Basophils/100 WBC (Bld) 0.5 % Normal 0-1 [facility] Comment on above: Order Comment: 109-1 Performed By: #### L 100.0100 ####[facility] [address] [place], [address] Eosinophils/100 WBC (Bld) 0.3 % Normal 0-5 [facility] Comment on above: Order Comment: 109-1 Performed By: #### L 100.0100 ####[facility] [address] [place], [address] Erythrocyte distribution width (RBC) [Ratio] 13.0 % Normal 11.6-14.6 [facility] Comment on above: Order Comment: 109-1 Performed By: #### L 100.0100 ####[facility] [address] [place], [address] Hematocrit (Bld) [Volume fraction] 40.1 % Normal 40-54 [facility] Comment on above: Order Comment: 109-1 Performed By: #### L 100.0100 ####[facility] [address] [place], [address] Hemoglobin (Bld) [Mass/Vol] 13.2 g/dL Normal 13.0-16.5 [facility] Comment on above: Order Comment: 109-1 Performed By: #### L 100.0100 ####[facility] [address] [place], [address] IG% 0.400 Normal 0.0-0.9 [facility] Comment on above: Order Comment: 109-1 Result Comment: IG% - Immature Granulocytes (promyelocytes, myelocytes andmetamyelocytes) > 1% indicates that a LEFT SHIFT is Present. Performed By: #### L 100.0100 ####[facility] [address] [place], [address] Lymphocytes/100 WBC (Bld) 15.7 % Low 19-41 [facility] Comment on above: Order Comment: 109-1 Performed By: #### L 100.0100 ####[facility] [address] [place], [address] MCH (RBC) [Entitic mass] 30.1 pg Normal 27.0-32.0 [facility] Comment on above: Order Comment: 109-1 Performed By: #### L 100.0100 ####[facility] [address] [place], [address] MCHC (RBC) [Mass/Vol] 32.9 g/dL Normal 32-36 [facility] Comment on above: Order Comment: 109-1 Performed By: #### L 100.0100 ####[facility] [address] [place], [address] MCV (RBC) [Entitic vol] 91.3 fL Normal 80-94 [facility] Comment on above: Order Comment: 109-1 Performed By: #### L 100.0100 ####[facility] [address] [place], [address] Monocytes/100 WBC (Bld) 6.6 % Normal 0-10 [facility] Comment on above: Order Comment: 109-1 Performed By: #### L 100.0100 ####[facility] [address] [place], [address] Neutrophils/100 WBC (Bld) 76.5 % High 47-70 [facility] Comment on above: Order Comment: 109-1 Performed By: #### L 100.0100 ####[facility] [address] [place], [address] Nucleated RBC (Bld) [#/Vol] 0 10*3/uL Normal 0-5 [facility] Comment on above: Order Comment: 109-1 Performed By: #### L 100.0100 ####[facility] [address] [place], [address] Platelet mean volume (Bld) [Entitic vol] 11.1 fL Normal 6.2-12.0 [facility] Comment on above: Order Comment: 109-1 Performed By: #### L 100.0100 ####[facility] [address] [place], [address] Platelets (Bld) [#/Vol] 249 10*3/uL Normal 150-450 [facility] Comment on above: Order Comment: 109-1 Performed By: #### L 100.0100 ####[facility] [address] [place], [address] RBC (Bld) [#/Vol] 4.39 10*6/uL Low 4.6-6.2 [facility] Comment on above: Order Comment: 109-1 Performed By: #### L 100.0100 ####[facility] [address] [place], [address] RDW SD 42.8 fl Normal 35.1-43.9 [facility] Comment on above: Order Comment: 109-1 Performed By: #### L 100.0100 ####[facility] [address] [place], [address] WBC (Bld) [#/Vol] 12.4 10*3/uL High 4.4-11.0 [facility] Comment on above: Order Comment: 109-1 Performed By: #### L 100.0100 ####[facility] [address] [place], [address] Eosinophil percentageOrdered By: Renard Burgos on 06-03-2024 Eosinophils/100 WBC (Bld) 0.3 % 0-5 [facility] Erythrocyte distribution wid th ratioOrdered By: Renard Burgos on 06-03-2024 Erythrocyte distribution width (RBC) [Ratio] 13.0 % 11.6-14.6 [facility] Erythrocyte distribution wid th standard deviationOrdered By: Renard Burgos on 06-03-2024 Erythrocyte distribution width (RBC) [Entitic vol] 42.8 fL 35.1-43.9 [facility] Erythrocyte distribution width (RBC) [Ratio] 42.8 fl 35.1-43.9 [facility] Hematocrit Auto (Bld) [Volum e fraction]Ordered By: Renard Burgos on 06-03-2024 Hematocrit (Bld) [Volume fraction] 40.1 % 40-54 [facility] Hemoglobin measurementOrdere d By: Renard Burgos on 06-03-2024 Hemoglobin (Bld) [Mass/Vol] 13.2 g/dL 13.0-16.5 [facility] Immature granulocytes/100 WB C Auto (Bld)Ordered By: Renard Burgos on 06-03-2024 Immature granulocytes/100 WBC (Bld) 0.400 % 0.0-0.9 [facility] Comment on above: IG% - Immature Granu locytes (promyelocytes, myelocytes and metamyelocytes) > 1% indicates that a LEFT SHIFT is Present. Lymphocytes Auto (Unsp spec) [#/Vol]Ordered By: Renard Burgos on 06-03-2024 Lymphocytes (Bld) [#/Vol] 1.94 10*3/uL 0.83-4.51 [facility] Lymphocytes/100 WBC Auto (Un sp spec)Ordered By: Renard Burgos on 06-03-2024 Lymphocytes/100 WBC (Bld) 15.7 % Low 19-41 [facility] MCV (mean corpuscular volume ) determinationOrdered By: Renard Burgos on 06-03-2024 MCV (RBC) [Entitic vol] 91.3 fL 80-94 [facility] Mean corpuscular hemoglobin (MCH) determinationOrdered By: Renard Burgos on 06-03-2024 MCH (RBC) [Entitic mass] 30.1 pg 27.0-32.0 [facility] Mean corpuscular hemoglobin concentration (MCHC) determinationOrdered By: Renard Burgos on 06-03-2024 MCHC (RBC) [Mass/Vol] 32.9 g/dL 32-36 [facility] Mean platelet volume determi nationOrdered By: Renard Burgos on 06-03-2024 Platelet mean volume (Bld) [Entitic vol] 11.1 fL 6.2-12.0 [facility] Monocyte percentageOrdered B y: Renard Burgos on 06-03-2024 Monocytes/100 WBC (Bld) 6.6 % 0-10 [facility] Neutrophil percentageOrdered By: Renard Burgos on 06-03-2024 Neutrophils/100 WBC (Bld) 76.5 % High 47-70 [facility] Nucleated red blood cell per centageOrdered By: Renard Burgos on 06-03-2024 Nucleated RBC/100 WBC (Bld) [Ratio] 0 % 0-5 [facility] Platelet countOrdered By: Garrick Bhatt on 06-03-2024 Platelets (Bld) [#/Vol] 249 10*3/uL 150-450 [facility] RBC Auto (Bld) [#/Vol]Ordere d By: Renard Burgos on 06-03-2024 RBC (Bld) [#/Vol] 4.39 10*6/uL Low 4.6-6.2 [facility] White blood cell (WBC) count Ordered By: Renard Burgos on 06-03-2024 WBC (Bld) [#/Vol] 12.4 10*3/uL High 4.4-11.0 [facility] Absolute lymphocyte countOrd ered By: Renard Burgos on 05-27-2024 Lymphocytes Auto (Unsp spec) [#/Vol] 1.81 10*3/uL 0.83-4.51 [facility] Absolute neutrophil countOrd ered By: Renard Burgos on 05-27-2024 Neutrophils (Bld) [#/Vol] 5.0 10*3/uL 2.0-7.7 [facility] Automated lymphocyte count a s percentage of total leukocytesOrdered By: Renard Burgos on 05-27-2024 Lymphocytes/100 WBC Auto (Unsp spec) 24.4 % 19-41 [facility] Basophil percentageOrdered B y: Renard Burgos on 05-27-2024 Basophils/100 WBC (Bld) 0.5 % 0-1 [facility] CBC W/Diff, Automatedon 05-02 Absolute Lymph 1.81 X10 3/uL Normal 0.83-4.51 [facility] Comment on above: Order Comment: 109.1 Performed By: #### L 100.0100 ####[facility] [address] [place], [address] Absolute Neut 5.0 X10 3/uL Normal 2.0-7.7 [facility] Comment on above: Order Comment: 109.1 Performed By: #### L 100.0100 ####[facility] [address] [place], [address] Basophils/100 WBC (Bld) 0.5 % Normal 0-1 [facility] Comment on above: Order Comment: 109.1 Performed By: #### L 100.0100 ####[facility] [address] [place], [address] Eosinophils/100 WBC (Bld) 0.5 % Normal 0-5 [facility] Comment on above: Order Comment: 109.1 Performed By: #### L 100.0100 ####[facility] [address] [place], [address] Erythrocyte distribution width (RBC) [Ratio] 12.8 % Normal 11.6-14.6 [facility] Comment on above: Order Comment: 109.1 Performed By: #### L 100.0100 ####[facility] [address] [place], [address] Hematocrit (Bld) [Volume fraction] 39.8 % Low 40-54 [facility] Comment on above: Order Comment: 109.1 Performed By: #### L 100.0100 ####[facility] [address] [place], [address] Hemoglobin (Bld) [Mass/Vol] 13.2 g/dL Normal 13.0-16.5 [facility] Comment on above: Order Comment: 109.1 Performed By: #### L 100.0100 ####[facility] [address] [place], [address] IG% 0.400 Normal 0.0-0.9 [facility] Comment on above: Order Comment: 109.1 Result Comment: IG% - Immature Granulocytes (promyelocytes, myelocytes andmetamyelocytes) > 1% indicates that a LEFT SHIFT is Present. Performed By: #### L 100.0100 ####[facility] [address] [place], [address] Lymphocytes/100 WBC (Bld) 24.4 % Normal 19-41 [facility] Comment on above: Order Comment: 109.1 Performed By: #### L 100.0100 ####[facility] [address] [place], [address] MCH (RBC) [Entitic mass] 30.2 pg Normal 27.0-32.0 [facility] Comment on above: Order Comment: 109.1 Performed By: #### L 100.0100 ####[facility] [address] [place], [address] MCHC (RBC) [Mass/Vol] 33.2 g/dL Normal 32-36 [facility] Comment on above: Order Comment: 109.1 Performed By: #### L 100.0100 ####[facility] [address] [place], [address] MCV (RBC) [Entitic vol] 91.1 fL Normal 80-94 [facility] Comment on above: Order Comment: 109.1 Performed By: #### L 100.0100 ####[facility] [address] [place], [address] Monocytes/100 WBC (Bld) 7.0 % Normal 0-10 [facility] Comment on above: Order Comment: 109.1 Performed By: #### L 100.0100 ####[facility] [address] [place], [address] Neutrophils/100 WBC (Bld) 67.2 % Normal 47-70 [facility] Comment on above: Order Comment: 109.1 Performed By: #### L 100.0100 ####[facility] [address] [place], [address] Nucleated RBC (Bld) [#/Vol] 0 10*3/uL Normal 0-5 [facility] Comment on above: Order Comment: 109.1 Performed By: #### L 100.0100 ####[facility] [address] [place], [address] Platelet mean volume (Bld) [Entitic vol] 10.3 fL Normal 6.2-12.0 [facility] Comment on above: Order Comment: 109.1 Performed By: #### L 100.0100 ####[facility] [address] [place], [address] Platelets (Bld) [#/Vol] 239 10*3/uL Normal 150-450 [facility] Comment on above: Order Comment: 109.1 Performed By: #### L 100.0100 ####[facility] [address] [place], [address] RBC (Bld) [#/Vol] 4.37 10*6/uL Low 4.6-6.2 [facility] Comment on above: Order Comment: 109.1 Performed By: #### L 100.0100 ####[facility] [address] [place], [address] RDW SD 42.5 fl Normal 35.1-43.9 [facility] Comment on above: Order Comment: 109.1 Performed By: #### L 100.0100 ####[facility] [address] [place], [address] WBC (Bld) [#/Vol] 7.4 10*3/uL Normal 4.4-11.0 [facility] Comment on above: Order Comment: 109.1 Performed By: #### L 100.0100 ####[facility] [address] [place], [address] Eosinophil percentageOrdered By: Renard Burgos on 05-27-2024 Eosinophils/100 WBC (Bld) 0.5 % 0-5 [facility] Erythrocyte distribution wid th ratioOrdered By: Renard Burgos on 05-27-2024 Erythrocyte distribution width (RBC) [Ratio] 12.8 % 11.6-14.6 [facility] Erythrocyte distribution wid th standard deviationOrdered By: Renard Burgos on 05-27-2024 Erythrocyte distribution width (RBC) [Entitic vol] 42.5 fL 35.1-43.9 [facility] Erythrocyte distribution width (RBC) [Ratio] 42.5 fl 35.1-43.9 [facility] Hematocrit Auto (Bld) [Volum e fraction]Ordered By: Renard Burgos on 05-27-2024 Hematocrit (Bld) [Volume fraction] 39.8 % Low 40-54 [facility] Hemoglobin measurementOrdere d By: Renard Burgos on 05-27-2024 Hemoglobin (Bld) [Mass/Vol] 13.2 g/dL 13.0-16.5 [facility] Immature granulocytes/100 WB C Auto (Bld)Ordered By: Renard Burgos on 05-27-2024 Immature granulocytes/100 WBC (Bld) 0.400 % 0.0-0.9 [facility] Comment on above: IG% - Immature Granu locytes (promyelocytes, myelocytes and metamyelocytes) > 1% indicates that a LEFT SHIFT is Present. Lymphocytes Auto (Unsp spec) [#/Vol]Ordered By: Renard Burgos on 05-27-2024 Lymphocytes (Bld) [#/Vol] 1.81 10*3/uL 0.83-4.51 [facility] Lymphocytes/100 WBC Auto (Un sp spec)Ordered By: Renard Burgos on 05-27-2024 Lymphocytes/100 WBC (Bld) 24.4 % 19-41 [facility] MCV (mean corpuscular volume ) determinationOrdered By: Renard Burgos on 05-27-2024 MCV (RBC) [Entitic vol] 91.1 fL 80-94 [facility] Mean corpuscular hemoglobin (MCH) determinationOrdered By: Renard Burgos on 05-27-2024 MCH (RBC) [Entitic mass] 30.2 pg 27.0-32.0 [facility] Mean corpuscular hemoglobin concentration (MCHC) determinationOrdered By: Renard Burgos on 05-27-2024 MCHC (RBC) [Mass/Vol] 33.2 g/dL 32-36 [facility] Mean platelet volume determi nationOrdered By: Renard Burgos on 05-27-2024 Platelet mean volume (Bld) [Entitic vol] 10.3 fL 6.2-12.0 [facility] Monocyte percentageOrdered B y: Renard Burgos on 05-27-2024 Monocytes/100 WBC (Bld) 7.0 % 0-10 [facility] Neutrophil percentageOrdered By: Renard Burgos on 05-27-2024 Neutrophils/100 WBC (Bld) 67.2 % 47-70 [facility] Nucleated red blood cell per centageOrdered By: Renard Burgos on 05-27-2024 Nucleated RBC/100 WBC (Bld) [Ratio] 0 % 0-5 [facility] Platelet countOrdered By: Garrick Bhatt on 05-27-2024 Platelets (Bld) [#/Vol] 239 10*3/uL 150-450 [facility] RBC Auto (Bld) [#/Vol]Ordere d By: Renard Burgos on 05-27-2024 RBC (Bld) [#/Vol] 4.37 10*6/uL Low 4.6-6.2 [facility] White blood cell (WBC) count Ordered By: Renard Burgos on 05-27-2024 WBC (Bld) [#/Vol] 7.4 10*3/uL 4.4-11.0 [facility] Absolute lymphocyte countOrd ered By: Renard Burgos on 05-20-2024 Lymphocytes Auto (Unsp spec) [#/Vol] 1.73 10*3/uL 0.83-4.51 [facility] Absolute neutrophil countOrd ered By: Renard Burgos on 05-20-2024 Neutrophils (Bld) [#/Vol] 7.0 10*3/uL 2.0-7.7 [facility] Automated blood erythrocyte countOrdered By: Renard Burgos on 05-20-2024 RBC (Bld) [#/Vol] 4.74 10*6/uL Normal 4.6-6.2 [facility] Comment on above: Order Comment: 109-1 Performed By: #### L 100.0100 ####[facility] [address] [place], [address] Automated blood hematocrit ( percentage)Ordered By: Renard Burgos on 05-20-2024 Hematocrit (Bld) [Volume fraction] 43.6 % Normal 40-54 [facility] Comment on above: Order Comment: 109-1 Performed By: #### L 100.0100 ####[facility] [address] [place], [address] Automated lymphocyte count a s percentage of total leukocytesOrdered By: Renard Burgos on 05-20-2024 Lymphocytes/100 WBC (Bld) 17.7 % Low 19-41 [facility] Comment on above: Order Comment: 109-1 Performed By: #### L 100.0100 ####[facility] [address] [place], [address] Lymphocytes/100 WBC Auto (Unsp spec) 17.7 % Low - [facility] Basophil percentageOrdered B y: Renard Burgos on 05-20-2024 Basophils/100 WBC (Bld) 0.5 % Normal 0-1 [facility] Comment on above: Order Comment: 109-1 Performed By: #### L 100.0100 ####[facility] [address] [place], [address] CBC W/Diff, Automatedon -2 0-2024 Absolute Lymph 1.73 X10 3/uL Normal 0.83-4.51 [facility] Comment on above: Order Comment: 109-1 Performed By: #### L 100.0100 ####[facility] [address] [place], [address] Absolute Neut 7.0 X10 3/uL Normal 2.0-7.7 [facility] Comment on above: Order Comment: 109-1 Performed By: #### L 100.0100 ####[facility] [address] [place], [address] IG% 0.500 Normal 0.0-0.9 [facility] Comment on above: Order Comment: 109-1 Result Comment: IG% - Immature Granulocytes (promyelocytes, myelocytes andmetamyelocytes) > 1% indicates that a LEFT SHIFT is Present. Performed By: #### L 100.0100 ####[facility] [address] [place], [address] Nucleated RBC (Bld) [#/Vol] 0 10*3/uL Normal 0-5 [facility] Comment on above: Order Comment: 109-1 Performed By: #### L 100.0100 ####[facility] [address] [place], [address] RDW SD 42.5 fl Normal 35.1-43.9 [facility] Comment on above: Order Comment: 109-1 Performed By: #### L 100.0100 ####[facility] [address] [place], [address] Eosinophil percentageOrdered By: Renard Burgos on 05-20-2024 Eosinophils/100 WBC (Bld) 0.5 % Normal 0-5 [facility] Comment on above: Order Comment: 109-1 Performed By: #### L 100.0100 ####[facility] [address] [place], [place], [address] Erythrocyte distribution wid th ratioOrdered By: Renard Burgos on 05-20-2024 Erythrocyte distribution width (RBC) [Ratio] 12.6 % Normal 11.6-14.6 [facility] Comment on above: Order Comment: 109-1 Performed By: #### L 100.0100 ####[facility] [address] [place], [place], [id number]) Erythrocyte distribution wid th standard deviationOrdered By: Renard Burgos on 05-20-2024 Erythrocyte distribution width (RBC) [Entitic vol] 42.5 fL 35.1-43.9 [facility] Erythrocyte distribution width (RBC) [Ratio] 42.5 fl 35.1-43.9 [facility] Hemoglobin measurementOrdere d By: Renard Burgos on 05-20-2024 Hemoglobin (Bld) [Mass/Vol] 14.4 g/dL Normal 13.0-16.5 [facility] Comment on above: Order Comment: 109-1 Performed By: #### L 100.0100 ####[facility] [address] [place], [place], [id number] Immature granulocytes/100 WB C Auto (Bld)Ordered By: Renard Burgos on 05-20-2024 Immature granulocytes/100 WBC (Bld) 0.500 % 0.0-0.9 [facility] Comment on above: IG% - Immature Granu locytes (promyelocytes, myelocytes and metamyelocytes) > 1% indicates that a LEFT SHIFT is Present. Lymphocytes Auto (Unsp spec) [#/Vol]Ordered By: Renard Burgos on 05-20-2024 Lymphocytes (Bld) [#/Vol] 1.73 10*3/uL 0.83-4.51 [facility] MCV (mean corpuscular volume ) determinationOrdered By: Renard Burgos on 05-20-2024 MCV (RBC) [Entitic vol] 92.0 fL Normal 80-94 [facility] Comment on above: Order Comment: 109-1 Performed By: #### L 100.0100 ####[facility] [address] [place], [place], [address] Mean corpuscular hemoglobin (MCH) determinationOrdered By: Renard Burgos on 05-20-2024 MCH (RBC) [Entitic mass] 30.4 pg Normal 27.0-32.0 [facility] Comment on above: Order Comment: 109-1 Performed By: #### L 100.0100 ####[facility] [address] [place], [place], [address] Mean corpuscular hemoglobin concentration (MCHC) determinationOrdered By: Renard Burgos on 05-20-2024 MCHC (RBC) [Mass/Vol] 33.0 g/dL Normal 32-36 [facility] Comment on above: Order Comment: 109-1 Performed By: #### L 100.0100 ####[facility] [address] [place], [place], [address] Mean platelet volume determi nationOrdered By: Renard Burgos on 05-20-2024 Platelet mean volume (Bld) [Entitic vol] 10.7 fL Normal 6.2-12.0 [facility] Comment on above: Order Comment: 109-1 Performed By: #### L 100.0100 ####[facility] [address] [place], [address] Monocyte percentageOrdered B y: Renard Burgos on 05-20-2024 Monocytes/100 WBC (Bld) 9.4 % Normal 0-10 [facility] Comment on above: Order Comment: 109-1 Performed By: #### L 100.0100 ####[facility] [address] [place], [place], [address] Neutrophil percentageOrdered By: Renard Burgos on 05-20-2024 Neutrophils/100 WBC (Bld) 71.4 % High 47-70 [facility] Comment on above: Order Comment: 109-1 Performed By: #### L 100.0100 ####[facility] [address] [place], [place], [id number] Nucleated red blood cell per centageOrdered By: Renard Burgos on 05-20-2024 Nucleated RBC/100 WBC (Bld) [Ratio] 0 % 0-5 [facility] Platelet countOrdered By: Garrick Bhatt on 05-20-2024 Platelets (Bld) [#/Vol] 239 10*3/uL Normal 150-450 [facility] Comment on above: Order Comment: 109-1 Performed By: #### L 100.0100 ####[facility] [address] [place], [place], [id number] White blood cell (WBC) count Ordered By: Renard Burgos on 05-20-2024 WBC (Bld) [#/Vol] 9.8 10*3/uL Normal 4.4-11.0 [facility] Comment on above: Order Comment: 109-1 Performed By: #### L 100.0100 ####[facility] [address] [place], [place], [phone] Absolute lymphocyte countOrd ered By: Renard Burgos on 05-13-2024 Lymphocytes Auto (Unsp spec) [#/Vol] 2.10 10*3/uL 0.83-4.51 [facility] Absolute neutrophil countOrd ered By: Renard Burgos on 05-13-2024 Neutrophils (Bld) [#/Vol] 6.2 10*3/uL 2.0-7.7 [facility] Automated lymphocyte count a s percentage of total leukocytesOrdered By: Renard Burgos on 05-13-2024 Lymphocytes/100 WBC Auto (Unsp spec) 22.8 % 19-41 [facility] Basophil percentageOrdered B y: Renard Burgos on 05-13-2024 Basophils/100 WBC (Bld) 0.5 % 0-1 [facility] CBC W/Diff, Automatedon 05-01 Absolute Lymph 2.10 X10 3/uL Normal 0.83-4.51 [facility] Comment on above: Order Comment: 109 Performed By: #### L 100.0100 ####[facility] [address] [place], [address] Absolute Neut 6.2 X10 3/uL Normal 2.0-7.7 [facility] Comment on above: Order Comment: 109 Performed By: #### L 100.0100 ####[facility] [address] [place], [address] Basophils/100 WBC (Bld) 0.5 % Normal 0-1 [facility] Comment on above: Order Comment: 109 Performed By: #### L 100.0100 ####[facility] [address] [place], [address] Eosinophils/100 WBC (Bld) 0.5 % Normal 0-5 [facility] Comment on above: Order Comment: 109 Performed By: #### L 100.0100 ####[facility] [address] [place], [address] Erythrocyte distribution width (RBC) [Ratio] 12.9 % Normal 11.6-14.6 [facility] Comment on above: Order Comment: 109 Performed By: #### L 100.0100 ####[facility] [address] [place], [address] Hematocrit (Bld) [Volume fraction] 42.5 % Normal 40-54 [facility] Comment on above: Order Comment: 109 Performed By: #### L 100.0100 ####[facility] [address] [place], [address] Hemoglobin (Bld) [Mass/Vol] 14.2 g/dL Normal 13.0-16.5 [facility] Comment on above: Order Comment: 109 Performed By: #### L 100.0100 ####[facility] [address] [place], [address] IG% 0.300 Normal 0.0-0.9 [facility] Comment on above: Order Comment: 109 Result Comment: IG% - Immature Granulocytes (promyelocytes, myelocytes andmetamyelocytes) > 1% indicates that a LEFT SHIFT is Present. Performed By: #### L 100.0100 ####[facility] [address] [place], [address] Lymphocytes/100 WBC (Bld) 22.8 % Normal 19-41 [facility] Comment on above: Order Comment: 109 Performed By: #### L 100.0100 ####[facility] [address] [place], [address] MCH (RBC) [Entitic mass] 30.3 pg Normal 27.0-32.0 [facility] Comment on above: Order Comment: 109 Performed By: #### L 100.0100 ####[facility] [address] [place], [address] MCHC (RBC) [Mass/Vol] 33.4 g/dL Normal 32-36 [facility] Comment on above: Order Comment: 109 Performed By: #### L 100.0100 ####[facility] [address] [place], [address] MCV (RBC) [Entitic vol] 90.6 fL Normal 80-94 [facility] Comment on above: Order Comment: 109 Performed By: #### L 100.0100 ####[facility] [address] [place], [address] Monocytes/100 WBC (Bld) 8.7 % Normal 0-10 [facility] Comment on above: Order Comment: 109 Performed By: #### L 100.0100 ####[facility] [address] [place], [address] Neutrophils/100 WBC (Bld) 67.2 % Normal 47-70 [facility] Comment on above: Order Comment: 109 Performed By: #### L 100.0100 ####[facility] [address] [place], [address] Nucleated RBC (Bld) [#/Vol] 0 10*3/uL Normal 0-5 [facility] Comment on above: Order Comment: 109 Performed By: #### L 100.0100 ####[facility] [address] [place], [address] Platelet mean volume (Bld) [Entitic vol] 11.1 fL Normal 6.2-12.0 [facility] Comment on above: Order Comment: 109 Performed By: #### L 100.0100 ####[facility] [address] [place], [address] Platelets (Bld) [#/Vol] 218 10*3/uL Normal 150-450 [facility] Comment on above: Order Comment: 109 Performed By: #### L 100.0100 ####[facility] [address] [place], [address] RBC (Bld) [#/Vol] 4.69 10*6/uL Normal 4.6-6.2 [facility] Comment on above: Order Comment: 109 Performed By: #### L 100.0100 ####[facility] [address] [place], [address] RDW SD 42.3 fl Normal 35.1-43.9 [facility] Comment on above: Order Comment: 109 Performed By: #### L 100.0100 ####[facility] [address] [place], [address] WBC (Bld) [#/Vol] 9.2 10*3/uL Normal 4.4-11.0 [facility] Comment on above: Order Comment: 109 Performed By: #### L 100.0100 ####[facility] [address] [place], [address] Eosinophil percentageOrdered By: Renard Burgos on 05-13-2024 Eosinophils/100 WBC (Bld) 0.5 % 0-5 [facility] Erythrocyte distribution wid th ratioOrdered By: Renard Burgos on 05-13-2024 Erythrocyte distribution width (RBC) [Ratio] 12.9 % 11.6-14.6 [facility] Erythrocyte distribution wid th standard deviationOrdered By: Renard Burgos on 05-13-2024 Erythrocyte distribution width (RBC) [Entitic vol] 42.3 fL 35.1-43.9 [facility] Erythrocyte distribution width (RBC) [Ratio] 42.3 fl 35.1-43.9 [facility] Hematocrit Auto (Bld) [Volum e fraction]Ordered By: Renard Burgos on 05-13-2024 Hematocrit (Bld) [Volume fraction] 42.5 % 40-54 [facility] Hemoglobin measurementOrdere d By: Renard Burgos on 05-13-2024 Hemoglobin (Bld) [Mass/Vol] 14.2 g/dL 13.0-16.5 [facility] Immature granulocytes/100 WB C Auto (Bld)Ordered By: Renard Burgos on 05-13-2024 Immature granulocytes/100 WBC (Bld) 0.300 % 0.0-0.9 [facility] Comment on above: IG% - Immature Granu locytes (promyelocytes, myelocytes and metamyelocytes) > 1% indicates that a LEFT SHIFT is Present. Lymphocytes Auto (Unsp spec) [#/Vol]Ordered By: Renard Burgos on 05-13-2024 Lymphocytes (Bld) [#/Vol] 2.10 10*3/uL 0.83-4.51 [facility] Lymphocytes/100 WBC Auto (Un sp spec)Ordered By: Renard Burgos on 05-13-2024 Lymphocytes/100 WBC (Bld) 22.8 % 19-41 [facility] MCV (mean corpuscular volume ) determinationOrdered By: Renard Burgos on 05-13-2024 MCV (RBC) [Entitic vol] 90.6 fL 80-94 [facility] Mean corpuscular hemoglobin (MCH) determinationOrdered By: Renard Burgos on 05-13-2024 MCH (RBC) [Entitic mass] 30.3 pg 27.0-32.0 [facility] Mean corpuscular hemoglobin concentration (MCHC) determinationOrdered By: Renard Burgos on 05-13-2024 MCHC (RBC) [Mass/Vol] 33.4 g/dL 32-36 [facility] Mean platelet volume determi nationOrdered By: Renard Burgos on 05-13-2024 Platelet mean volume (Bld) [Entitic vol] 11.1 fL 6.2-12.0 [facility] Monocyte percentageOrdered B y: Renard Burgos on 05-13-2024 Monocytes/100 WBC (Bld) 8.7 % 0-10 [facility] Neutrophil percentageOrdered By: Renard Burgos on 05-13-2024 Neutrophils/100 WBC (Bld) 67.2 % 47-70 [facility] Nucleated red blood cell per centageOrdered By: Renard Burgos on 05-13-2024 Nucleated RBC/100 WBC (Bld) [Ratio] 0 % 0-5 [facility] Platelet countOrdered By: Garrick Bhatt on 05-13-2024 Platelets (Bld) [#/Vol] 218 10*3/uL 150-450 [facility] RBC Auto (Bld) [#/Vol]Ordere d By: Renard Burgos on 05-13-2024 RBC (Bld) [#/Vol] 4.69 10*6/uL 4.6-6.2 [facility] White blood cell (WBC) count Ordered By: Renard Burgos on 05-13-2024 WBC (Bld) [#/Vol] 9.2 10*3/uL 4.4-11.0 [facility] Absolute neutrophil countOrd ered By: Renard Burgos on 05-06-2024 Neutrophils (Bld) [#/Vol] 5.9 10*3/uL 2.0-7.7 [facility] Automated blood erythrocyte countOrdered By: Renard Burgos on 05-06-2024 RBC (Bld) [#/Vol] 4.85 10*6/uL Normal 4.6-6.2 [facility] Comment on above: Order Comment: 109-1 Performed By: #### L 100.0100 ####[facility] [address] [place], [address] Automated blood hematocrit ( percentage)Ordered By: Renard Burgos on 05-06-2024 Hematocrit (Bld) [Volume fraction] 45.0 % Normal 40-54 [facility] Comment on above: Order Comment: 109-1 Performed By: #### L 100.0100 ####[facility] [address] [place], [address] Automated lymphocyte count a s percentage of total leukocytesOrdered By: Renard Burgos on 05-06-2024 Lymphocytes/100 WBC (Bld) 24.4 % Normal 19-41 [facility] Comment on above: Order Comment: 109-1 Performed By: #### L 100.0100 ####[facility] [address] [place], [address] Basophil percentageOrdered B y: Renard Burgos on 05-06-2024 Basophils/100 WBC (Bld) 0.5 % Normal 0-1 [facility] Comment on above: Order Comment: 109-1 Performed By: #### L 100.0100 ####[facility] [address] [place], [address] CBC W/Diff, Automatedon Absolute Lymph 2.22 X10 3/uL Normal 0.83-4.51 [facility] Comment on above: Order Comment: 109-1 Performed By: #### L 100.0100 ####[facility] [address] [place], [address] Absolute Neut 5.9 X10 3/uL Normal 2.0-7.7 [facility] Comment on above: Order Comment: 109-1 Performed By: #### L 100.0100 ####[facility] [address] [place], [address] IG% 0.500 Normal 0.0-0.9 [facility] Comment on above: Order Comment: 109-1 Result Comment: IG% - Immature Granulocytes (promyelocytes, myelocytes andmetamyelocytes) > 1% indicates that a LEFT SHIFT is Present. Performed By: #### L 100.0100 ####[facility] [address] [place], [address] Nucleated RBC (Bld) [#/Vol] 0 10*3/uL Normal 0-5 [facility] Comment on above: Order Comment: 109-1 Performed By: #### L 100.0100 ####[facility] [address] [place], [address] RDW SD 43.9 fl Normal 35.1-43.9 [facility] Comment on above: Order Comment: 109-1 Performed By: #### L 100.0100 ####[facility] [address] [place], [address] Eosinophil percentageOrdered By: Renard Burgos on 05-06-2024 Eosinophils/100 WBC (Bld) 0.4 % Normal 0-5 [facility] Comment on above: Order Comment: 109-1 Performed By: #### L 100.0100 ####[facility] [address] [place], [address] Erythrocyte distribution wid th ratioOrdered By: Renard Burgos on 05-06-2024 Erythrocyte distribution width (RBC) [Ratio] 13.0 % Normal 11.6-14.6 [facility] Comment on above: Order Comment: 109-1 Performed By: #### L 100.0100 ####[facility] [address] [place], [address] Erythrocyte distribution wid th standard deviationOrdered By: Renard Burgos on 05-06-2024 Erythrocyte distribution width (RBC) [Entitic vol] 43.9 fL 35.1-43.9 [facility] Hemoglobin measurementOrdere d By: Renard Burgos on 05-06-2024 Hemoglobin (Bld) [Mass/Vol] 14.5 g/dL Normal 13.0-16.5 [facility] Comment on above: Order Comment: 109-1 Performed By: #### L 100.0100 ####[facility] [address] [place], [place], [phone] Immature granulocytes/100 WB C Auto (Bld)Ordered By: Renard Burgos on 05-06-2024 Immature granulocytes/100 WBC (Bld) 0.500 % 0.0-0.9 [facility] Comment on above: IG% - Immature Granu locytes (promyelocytes, myelocytes and metamyelocytes) > 1% indicates that a LEFT SHIFT is Present. Lymphocytes Auto (Unsp spec) [#/Vol]Ordered By: Renard Burgos on 05-06-2024 Lymphocytes (Bld) [#/Vol] 2.22 10*3/uL 0.83-4.51 [facility] MCV (mean corpuscular volume ) determinationOrdered By: Renard Burgos on 05-06-2024 MCV (RBC) [Entitic vol] 92.8 fL Normal 80-94 [facility] Comment on above: Order Comment: 109-1 Performed By: #### L 100.0100 ####[facility] [address] [facility] [place], [id number] Mean corpuscular hemoglobin (MCH) determinationOrdered By: Renard Burgos on 05-06-2024 MCH (RBC) [Entitic mass] 29.9 pg Normal 27.0-32.0 [facility] Comment on above: Order Comment: 109-1 Performed By: #### L 100.0100 ####[facility] [address] [facility] [address] [place], [place], [id number] Mean corpuscular hemoglobin concentration (MCHC) determinationOrdered By: Renard Burgos on 05-06-2024 MCHC (RBC) [Mass/Vol] 32.2 g/dL Normal 32-36 [facility] Comment on above: Order Comment: 109-1 Performed By: #### L 100.0100 ####[facility] [address] [place], [address] Mean platelet volume determi nationOrdered By: Renard Burgos on 05-06-2024 Platelet mean volume (Bld) [Entitic vol] 11.4 fL Normal 6.2-12.0 [facility] Comment on above: Order Comment: 109-1 Performed By: #### L 100.0100 ####[facility] [address] [place], [address] Monocyte percentageOrdered B y: Renard Burgos on 05-06-2024 Monocytes/100 WBC (Bld) 9.7 % Normal 0-10 [facility] Comment on above: Order Comment: 109-1 Performed By: #### L 100.0100 ####[facility] [address] [place], [place], [phone] Neutrophil percentageOrdered By: Renard Burgos on 05-06-2024 Neutrophils/100 WBC (Bld) 64.5 % Normal 47-70 [facility] Comment on above: Order Comment: 109-1 Performed By: #### L 100.0100 ####[facility] [address] [place], [address] Nucleated red blood cell per centageOrdered By: Renard Burgos on 05-06-2024 Nucleated RBC/100 WBC (Bld) [Ratio] 0 % 0-5 [facility] Platelet countOrdered By: Garrick Bhatt on 05-06-2024 Platelets (Bld) [#/Vol] 201 10*3/uL Normal 150-450 [facility] Comment on above: Order Comment: 109-1 Performed By: #### L 100.0100 ####[facility] [address] [place], [place], [phone] White blood cell (WBC) count Ordered By: Renard Burgos on 05-06-2024 WBC (Bld) [#/Vol] 9.1 10*3/uL Normal 4.4-11.0 [facility] Comment on above: Order Comment: 109-1 Performed By: #### L 100.0100 ####[facility] [address] [place], [address] 36on 05-03-2024 36 Gissel is calling to let Dr. Burgos know that the medication he prescribed he not certified, she is going to fax the information to the office. [phone] Normal [facility] Absolute neutrophil countOrd ered By: Renard Burgos on 04-29-2024 Neutrophils (Bld) [#/Vol] 6.3 10*3/uL 2.0-7.7 [facility] Basophil percentageOrdered B y: Renard Burgos on 04-29-2024 Basophils/100 WBC (Bld) 0.4 % 0-1 [facility] CBC W/Diff, Automatedon 04-02-2023 Absolute Lymph 2.11 X10 3/uL Normal 0.83-4.51 [facility] Comment on above: Order Comment: 109.1 Performed By: #### L 100.0100 ####[facility] [address] [place], [address] Absolute Neut 6.3 X10 3/uL Normal 2.0-7.7 [facility] Comment on above: Order Comment: 109.1 Performed By: #### L 100.0100 ####[facility] [address] [place], [address] Basophils/100 WBC (Bld) 0.4 % Normal 0-1 [facility] Comment on above: Order Comment: 109.1 Performed By: #### L 100.0100 ####[facility] [address] [place], [address] Eosinophils/100 WBC (Bld) 0.4 % Normal 0-5 [facility] Comment on above: Order Comment: 109.1 Performed By: #### L 100.0100 ####[facility] [address] [place], [address] Erythrocyte distribution width (RBC) [Ratio] 12.6 % Normal 11.6-14.6 [facility] Comment on above: Order Comment: 109.1 Performed By: #### L 100.0100 ####[facility] [address] [place], [address] Hematocrit (Bld) [Volume fraction] 41.6 % Normal 40-54 [facility] Comment on above: Order Comment: 109.1 Performed By: #### L 100.0100 ####[facility] [address] [place], [address] Hemoglobin (Bld) [Mass/Vol] 13.7 g/dL Normal 13.0-16.5 [facility] Comment on above: Order Comment: 109.1 Performed By: #### L 100.0100 ####[facility] [address] [place], [address] IG% 0.400 Normal 0.0-0.9 [facility] Comment on above: Order Comment: 109.1 Result Comment: IG% - Immature Granulocytes (promyelocytes, myelocytes andmetamyelocytes) > 1% indicates that a LEFT SHIFT is Present. Performed By: #### L 100.0100 ####[facility] [address] [place], [address] Lymphocytes/100 WBC (Bld) 22.6 % Normal 19-41 [facility] Comment on above: Order Comment: 109.1 Performed By: #### L 100.0100 ####[facility] [address] [place], [address] MCH (RBC) [Entitic mass] 30.1 pg Normal 27.0-32.0 [facility] Comment on above: Order Comment: 109.1 Performed By: #### L 100.0100 ####[facility] [address] [place], [address] MCHC (RBC) [Mass/Vol] 32.9 g/dL Normal 32-36 [facility] Comment on above: Order Comment: 109.1 Performed By: #### L 100.0100 ####[facility] [address] [place], [address] MCV (RBC) [Entitic vol] 91.4 fL Normal 80-94 [facility] Comment on above: Order Comment: 109.1 Performed By: #### L 100.0100 ####[facility] [address] [place], [address] Monocytes/100 WBC (Bld) 9.3 % Normal 0-10 [facility] Comment on above: Order Comment: 109.1 Performed By: #### L 100.0100 ####[facility] [address] [place], [address] Neutrophils/100 WBC (Bld) 66.9 % Normal 47-70 [facility] Comment on above: Order Comment: 109.1 Performed By: #### L 100.0100 ####[facility] [address] [place], [address] Nucleated RBC (Bld) [#/Vol] 0 10*3/uL Normal 0-5 [facility] Comment on above: Order Comment: 109.1 Performed By: #### L 100.0100 ####[facility] [address] [place], [address] Platelet mean volume (Bld) [Entitic vol] 11.0 fL Normal 6.2-12.0 [facility] Comment on above: Order Comment: 109.1 Performed By: #### L 100.0100 ####[facility] [address] [place], [address] Platelets (Bld) [#/Vol] 211 10*3/uL Normal 150-450 [facility] Comment on above: Order Comment: 109.1 Performed By: #### L 100.0100 ####[facility] [address] [place], [address] RBC (Bld) [#/Vol] 4.55 10*6/uL Low 4.6-6.2 [facility] Comment on above: Order Comment: 109.1 Performed By: #### L 100.0100 ####[facility] [address] [place], [address] RDW SD 41.5 fl Normal 35.1-43.9 [facility] Comment on above: Order Comment: 109.1 Performed By: #### L 100.0100 ####[facility] [address] [place], [address] WBC (Bld) [#/Vol] 9.4 10*3/uL Normal 4.4-11.0 [facility] Comment on above: Order Comment: 109.1 Performed By: #### L 100.0100 ####[facility] [address] [place], [address] Eosinophil percentageOrdered By: Renard Burgos on 04-29-2024 Eosinophils/100 WBC (Bld) 0.4 % 0-5 [facility] Erythrocyte distribution wid th ratioOrdered By: Renard Burgos on 04-29-2024 Erythrocyte distribution width (RBC) [Ratio] 12.6 % 11.6-14.6 [facility] Erythrocyte distribution wid th standard deviationOrdered By: Renard Burgos on 04-29-2024 Erythrocyte distribution width (RBC) [Entitic vol] 41.5 fL 35.1-43.9 [facility] Hematocrit Auto (Bld) [Volum e fraction]Ordered By: Renard Burgos on 04-29-2024 Hematocrit (Bld) [Volume fraction] 41.6 % 40-54 [facility] Hemoglobin measurementOrdere d By: Renard Burgos on 04-29-2024 Hemoglobin (Bld) [Mass/Vol] 13.7 g/dL 13.0-16.5 [facility] Immature granulocytes/100 WB C Auto (Bld)Ordered By: Renard Burgos on 04-29-2024 Immature granulocytes/100 WBC (Bld) 0.400 % 0.0-0.9 [facility] Comment on above: IG% - Immature Granu locytes (promyelocytes, myelocytes and metamyelocytes) > 1% indicates that a LEFT SHIFT is Present. Lymphocytes Auto (Unsp spec) [#/Vol]Ordered By: Renard Burgos on 04-29-2024 Lymphocytes (Bld) [#/Vol] 2.11 10*3/uL 0.83-4.51 [facility] Lymphocytes/100 WBC Auto (Un sp spec)Ordered By: Renard Burgos on 04-29-2024 Lymphocytes/100 WBC (Bld) 22.6 % 19-41 [facility] MCV (mean corpuscular volume ) determinationOrdered By: Renard Burgos on 04-29-2024 MCV (RBC) [Entitic vol] 91.4 fL 80-94 [facility] Mean corpuscular hemoglobin (MCH) determinationOrdered By: Renard Burgos on 04-29-2024 MCH (RBC) [Entitic mass] 30.1 pg 27.0-32.0 [facility] Mean corpuscular hemoglobin concentration (MCHC) determinationOrdered By: Renard Burgos on 04-29-2024 MCHC (RBC) [Mass/Vol] 32.9 g/dL 32-36 [facility] Mean platelet volume determi nationOrdered By: Renard Burgos on 04-29-2024 Platelet mean volume (Bld) [Entitic vol] 11.0 fL 6.2-12.0 [facility] Monocyte percentageOrdered B y: Renard Burgos on 04-29-2024 Monocytes/100 WBC (Bld) 9.3 % 0-10 [facility] Neutrophil percentageOrdered By: Renard Burgos on 04-29-2024 Neutrophils/100 WBC (Bld) 66.9 % 47-70 [facility] Nucleated red blood cell per centageOrdered By: Renard Burgos on 04-29-2024 Nucleated RBC/100 WBC (Bld) [Ratio] 0 % 0-5 [facility] Platelet countOrdered By: Garrick Bhatt on 04-29-2024 Platelets (Bld) [#/Vol] 211 10*3/uL 150-450 [facility] RBC Auto (Bld) [#/Vol]Ordere d By: Renard Burgos on 04-29-2024 RBC (Bld) [#/Vol] 4.55 10*6/uL Low 4.6-6.2 [facility] White blood cell (WBC) count Ordered By: Renard Burgos on 04-29-2024 WBC (Bld) [#/Vol] 9.4 10*3/uL 4.4-11.0 [facility] Absolute neutrophil countOrd ered By: Renard Burgos on 04-22-2024 Neutrophils (Bld) [#/Vol] 8.1 10*3/uL High 2.0-7.7 [facility] Basophil percentageOrdered B y: Renard Burgos on 04-22-2024 Basophils/100 WBC (Bld) 0.5 % 0-1 [facility] CBC W/Diff, Automatedon 04-01 Absolute Lymph 2.61 X10 3/uL Normal 0.83-4.51 [facility] Comment on above: Order Comment: 109-1 Performed By: #### L 100.0100 ####[facility] [address] [facility] [place], [address] Absolute Neut 8.1 X10 3/uL High 2.0-7.7 [facility] Comment on above: Order Comment: 109-1 Performed By: #### L 100.0100 ####[facility] [address] [place], [address] Basophils/100 WBC (Bld) 0.5 % Normal 0-1 [facility] Comment on above: Order Comment: 109-1 Performed By: #### L 100.0100 ####[facility] [address] [place], [address] Eosinophils/100 WBC (Bld) 0.4 % Normal 0-5 [facility] Comment on above: Order Comment: 109-1 Performed By: #### L 100.0100 ####[facility] [address] [place], [address] Erythrocyte distribution width (RBC) [Ratio] 12.6 % Normal 11.6-14.6 [facility] Comment on above: Order Comment: 109-1 Performed By: #### L 100.0100 ####[facility] [address] [place], [address] Hematocrit (Bld) [Volume fraction] 44.5 % Normal 40-54 [facility] Comment on above: Order Comment: 109-1 Performed By: #### L 100.0100 ####[facility] [address] [place], [address] Hemoglobin (Bld) [Mass/Vol] 14.3 g/dL Normal 13.0-16.5 [facility] Comment on above: Order Comment: 109-1 Performed By: #### L 100.0100 ####[facility] [address] [place], [address] IG% 0.300 Normal 0.0-0.9 [facility] Comment on above: Order Comment: 109-1 Result Comment: IG% - Immature Granulocytes (promyelocytes, myelocytes andmetamyelocytes) > 1% indicates that a LEFT SHIFT is Present. Performed By: #### L 100.0100 ####[facility] [address] [place], [address] Lymphocytes/100 WBC (Bld) 22.0 % Normal 19-41 [facility] Comment on above: Order Comment: 109-1 Performed By: #### L 100.0100 ####[facility] [address] [place], [address] MCH (RBC) [Entitic mass] 29.7 pg Normal 27.0-32.0 [facility] Comment on above: Order Comment: 109-1 Performed By: #### L 100.0100 ####[facility] [address] [place], [address] MCHC (RBC) [Mass/Vol] 32.1 g/dL Normal 32-36 [facility] Comment on above: Order Comment: 109-1 Performed By: #### L 100.0100 ####[facility] [address] [place], [address] MCV (RBC) [Entitic vol] 92.5 fL Normal 80-94 [facility] Comment on above: Order Comment: 109-1 Performed By: #### L 100.0100 ####[facility] [address] [place], [address] Monocytes/100 WBC (Bld) 8.3 % Normal 0-10 [facility] Comment on above: Order Comment: 109-1 Performed By: #### L 100.0100 ####[facility] [address] [place], [address] Neutrophils/100 WBC (Bld) 68.5 % Normal 47-70 [facility] Comment on above: Order Comment: 109-1 Performed By: #### L 100.0100 ####[facility] [address] [place], [address] Nucleated RBC (Bld) [#/Vol] 0 10*3/uL Normal 0-5 [facility] Comment on above: Order Comment: 109-1 Performed By: #### L 100.0100 ####[facility] [address] [place], [address] Platelet mean volume (Bld) [Entitic vol] 11.0 fL Normal 6.2-12.0 [facility] Comment on above: Order Comment: 109-1 Performed By: #### L 100.0100 ####[facility] [address] [place], [address] Platelets (Bld) [#/Vol] 190 10*3/uL Normal 150-450 [facility] Comment on above: Order Comment: 109-1 Performed By: #### L 100.0100 ####[facility] [address] [place], [address] RBC (Bld) [#/Vol] 4.81 10*6/uL Normal 4.6-6.2 [facility] Comment on above: Order Comment: 109-1 Performed By: #### L 100.0100 ####[facility] [address] [place], [address] RDW SD 43.0 fl Normal 35.1-43.9 [facility] Comment on above: Order Comment: 109-1 Performed By: #### L 100.0100 ####[facility] [address] [place], [address] WBC (Bld) [#/Vol] 11.9 10*3/uL High 4.4-11.0 [facility] Comment on above: Order Comment: 109-1 Performed By: #### L 100.0100 ####[facility] [address] [place], [address] Eosinophil percentageOrdered By: Renard Burgos on 04-22-2024 Eosinophils/100 WBC (Bld) 0.4 % 0-5 [facility] Erythrocyte distribution wid th ratioOrdered By: Renard Burgos on 04-22-2024 Erythrocyte distribution width (RBC) [Ratio] 12.6 % 11.6-14.6 [facility] Erythrocyte distribution wid th standard deviationOrdered By: Renard uBrgos on 04-22-2024 Erythrocyte distribution width (RBC) [Entitic vol] 43.0 fL 35.1-43.9 [facility] Hematocrit Auto (Bld) [Volum e fraction]Ordered By: Renard Burgos on 04-22-2024 Hematocrit (Bld) [Volume fraction] 44.5 % 40-54 [facility] Hemoglobin measurementOrdere d By: Renard Burgos on 04-22-2024 Hemoglobin (Bld) [Mass/Vol] 14.3 g/dL 13.0-16.5 [facility] Immature granulocytes/100 WB C Auto (Bld)Ordered By: Renard Burgos on 04-22-2024 Immature granulocytes/100 WBC (Bld) 0.300 % 0.0-0.9 [facility] Comment on above: IG% - Immature Granu locytes (promyelocytes, myelocytes and metamyelocytes) > 1% indicates that a LEFT SHIFT is Present. Lymphocytes Auto (Unsp spec) [#/Vol]Ordered By: Renard Burgos on 04-22-2024 Lymphocytes (Bld) [#/Vol] 2.61 10*3/uL 0.83-4.51 [facility] Lymphocytes/100 WBC Auto (Un sp spec)Ordered By: Renard Burgos on 04-22-2024 Lymphocytes/100 WBC (Bld) 22.0 % 19-41 [facility] MCV (mean corpuscular volume ) determinationOrdered By: Renard Burgos on 04-22-2024 MCV (RBC) [Entitic vol] 92.5 fL 80-94 [facility] Mean corpuscular hemoglobin (MCH) determinationOrdered By: Renard Burgos on 04-22-2024 MCH (RBC) [Entitic mass] 29.7 pg 27.0-32.0 [facility] Mean corpuscular hemoglobin concentration (MCHC) determinationOrdered By: Renard Burgos on 04-22-2024 MCHC (RBC) [Mass/Vol] 32.1 g/dL 32-36 [facility] Mean platelet volume determi nationOrdered By: Renard Burgos on 04-22-2024 Platelet mean volume (Bld) [Entitic vol] 11.0 fL 6.2-12.0 [facility] Monocyte percentageOrdered B y: Renard Burgos on 04-22-2024 Monocytes/100 WBC (Bld) 8.3 % 0-10 [facility] Neutrophil percentageOrdered By: Renard Burgos on 04-22-2024 Neutrophils/100 WBC (Bld) 68.5 % 47-70 [facility] Nucleated red blood cell per centageOrdered By: Renard Burgos on 04-22-2024 Nucleated RBC/100 WBC (Bld) [Ratio] 0 % 0-5 [facility] Platelet countOrdered By: Garrick Bhatt on 04-22-2024 Platelets (Bld) [#/Vol] 190 10*3/uL 150-450 [facility] RBC Auto (Bld) [#/Vol]Ordere d By: Renard Burgos on 04-22-2024 RBC (Bld) [#/Vol] 4.81 10*6/uL 4.6-6.2 [facility] White blood cell (WBC) count Ordered By: Renard Burgos on 04-22-2024 WBC (Bld) [#/Vol] 11.9 10*3/uL High 4.4-11.0 [facility] Absolute neutrophil countOrd ered By: Renard Burgos on 04-15-2024 Neutrophils (Bld) [#/Vol] 8.7 10*3/uL High 2.0-7.7 [facility] Basophil percentageOrdered B y: Renard Burgos on 04-15-2024 Basophils/100 WBC (Bld) 0.3 % 0-1 [facility] Bilirubin, totalOrdered By: Renard Burgos on 04-15-2024 Bilirubin [Mass/Vol] 0.30 mg/dL 0.20-1.00 [facility] Comment on above: For patients on eltr ombopag therapy, use of Dimension Bozman TBIL is not recommended. Bilirubin.direct [Mass/Vol]O rdered By: Renard Burgos on 04-15-2024 Direct Bilirubin < 0.05 mg/dL 0.00-0.30 [facility] CBC W/Diff, Automatedon 03-31 Absolute Lymph 1.93 X10 3/uL Normal 0.83-4.51 [facility] Comment on above: Order Comment: 109-1 Performed By: #### L 100.0100, L500.3400 ####[facility] [address] [place], [place], [id number] Absolute Neut 8.7 X10 3/uL High 2.0-7.7 [facility] Comment on above: Order Comment: 109-1 Performed By: #### L 100.0100, L500.3400 ####[facility] [address] [place], [address] Basophils/100 WBC (Bld) 0.3 % Normal 0-1 [facility] Comment on above: Order Comment: 109-1 Performed By: #### L 100.0100, L500.3400 ####[facility] [address] [place], [address] Eosinophils/100 WBC (Bld) 0.4 % Normal 0-5 [facility] Comment on above: Order Comment: 109-1 Performed By: #### L 100.0100, L500.3400 ####[facility] [address] [place], [address] Erythrocyte distribution width (RBC) [Ratio] 12.8 % Normal 11.6-14.6 [facility] Comment on above: Order Comment: 109-1 Performed By: #### L 100.0100, L500.3400 ####[facility] [address] [place], [address] Hematocrit (Bld) [Volume fraction] 42.5 % Normal 40-54 [facility] Comment on above: Order Comment: 109-1 Performed By: #### L 100.0100, L500.3400 ####[facility] [address] [place], [address] Hemoglobin (Bld) [Mass/Vol] 13.7 g/dL Normal 13.0-16.5 [facility] Comment on above: Order Comment: 109-1 Performed By: #### L 100.0100, L500.3400 ####[facility] [address] [place], [address] IG% 0.400 Normal 0.0-0.9 [facility] Comment on above: Order Comment: 109-1 Result Comment: IG% - Immature Granulocytes (promyelocytes, myelocytes andmetamyelocytes) > 1% indicates that a LEFT SHIFT is Present. Performed By: #### L 100.0100, L500.3400 ####[facility] [address] [place], [address] Lymphocytes/100 WBC (Bld) 16.9 % Low 19-41 [facility] Comment on above: Order Comment: 109-1 Performed By: #### L 100.0100, L500.3400 ####[facility] [address] [place], [address] MCH (RBC) [Entitic mass] 29.5 pg Normal 27.0-32.0 [facility] Comment on above: Order Comment: 109-1 Performed By: #### L 100.0100, L500.3400 ####[facility] [address] [place], [address] MCHC (RBC) [Mass/Vol] 32.2 g/dL Normal 32-36 [facility] Comment on above: Order Comment: 109-1 Performed By: #### L 100.0100, L500.3400 ####[facility] [address] [place], [address] MCV (RBC) [Entitic vol] 91.6 fL Normal 80-94 [facility] Comment on above: Order Comment: 109-1 Performed By: #### L 100.0100, L500.3400 ####[facility] [address] [place], [address] Monocytes/100 WBC (Bld) 6.0 % Normal 0-10 [facility] Comment on above: Order Comment: 109-1 Performed By: #### L 100.0100, L500.3400 ####[facility] [address] [place], [address] Neutrophils/100 WBC (Bld) 76.0 % High 47-70 [facility] Comment on above: Order Comment: 109-1 Performed By: #### L 100.0100, L500.3400 ####[facility] [address] [place], [address] Nucleated RBC (Bld) [#/Vol] 0 10*3/uL Normal 0-5 [facility] Comment on above: Order Comment: 109-1 Performed By: #### L 100.0100, L500.3400 ####[facility] [address] [place], [address] Platelet mean volume (Bld) [Entitic vol] 11.1 fL Normal 6.2-12.0 [facility] Comment on above: Order Comment: 109-1 Performed By: #### L 100.0100, L500.3400 ####[facility] [address] [place], [address] Platelets (Bld) [#/Vol] 197 10*3/uL Normal 150-450 [facility] Comment on above: Order Comment: 109-1 Performed By: #### L 100.0100, L500.3400 ####[facility] [address] [place], [address] RBC (Bld) [#/Vol] 4.64 10*6/uL Normal 4.6-6.2 [facility] Comment on above: Order Comment: 109-1 Performed By: #### L 100.0100, L500.3400 ####[facility] [address] [place], [address] RDW SD 42.5 fl Normal 35.1-43.9 [facility] Comment on above: Order Comment: 109-1 Performed By: #### L 100.0100, L500.3400 ####[facility] [address] [place], [address] WBC (Bld) [#/Vol] 11.4 10*3/uL High 4.4-11.0 [facility] Comment on above: Order Comment: 109-1 Performed By: #### L 100.0100, L500.3400 ####[facility] [address] [place], [address] Eosinophil percentageOrdered By: Renard Burgos on 04-15-2024 Eosinophils/100 WBC (Bld) 0.4 % 0-5 [facility] Erythrocyte distribution wid th ratioOrdered By: Renard Burgos on 04-15-2024 Erythrocyte distribution width (RBC) [Ratio] 12.8 % 11.6-14.6 [facility] Erythrocyte distribution wid th standard deviationOrdered By: Renard Burgos on 04-15-2024 Erythrocyte distribution width (RBC) [Entitic vol] 42.5 fL 35.1-43.9 [facility] Hematocrit Auto (Bld) [Volum e fraction]Ordered By: Renard Burgos on 04-15-2024 Hematocrit (Bld) [Volume fraction] 42.5 % 40-54 [facility] Hemoglobin measurementOrdere d By: Renard Burgos on 04-15-2024 Hemoglobin (Bld) [Mass/Vol] 13.7 g/dL 13.0-16.5 [facility] Immature granulocytes/100 WB C Auto (Bld)Ordered By: Renard Burgos on 04-15-2024 Immature granulocytes/100 WBC (Bld) 0.400 % 0.0-0.9 [facility] Comment on above: IG% - Immature Granu locytes (promyelocytes, myelocytes and metamyelocytes) > 1% indicates that a LEFT SHIFT is Present. Laboratory - Chemistry and C hemistry - challengeOrdered By: Rneard Burgos on 04-15-2024 AST [Catalytic activity/Vol] 18 U/L 15-37 [facility] Comment on above: Slight Hemolysis, Re sult may be falsely increased. Liver Profileon 04-15-2024 Albumin [Mass/Vol] 2.9 g/dL Low 3.2-5.0 [facility] Comment on above: Order Comment: 109-1 Performed By: #### L 100.0100, L500.3400 ####[facility] [address] [place], [address] ALK P 126 U/L High 45-117 [facility] Comment on above: Order Comment: 109-1 Performed By: #### L 100.0100, L500.3400 ####[facility] [address] [place], [address] ALT [Catalytic activity/Vol] 21 U/L Normal 16-61 [facility] Comment on above: Order Comment: 109-1 Performed By: #### L 100.0100, L500.3400 ####[facility] [address] [place], [address] AST [Catalytic activity/Vol] 18 U/L Normal 15-37 [facility] Comment on above: Order Comment: 109-1 Result Comment: Slig ht Hemolysis, Result may be falsely increased. Performed By: #### L 100.0100, L500.3400 ####[facility] [address] [place], [address] Bilirubin [Mass/Vol] 0.30 mg/dL Normal 0.20-1.00 [facility] Comment on above: Order Comment: 109-1 Result Comment: For patients on eltrombopag therapy, use of Dimension Bozman TBIL is not recommended. Performed By: #### L 100.0100, L500.3400 ####[facility] [address] [place], [address] D BILI < 0.05 Normal 0.00-0.30 [facility] Comment on above: Order Comment: 109-1 Performed By: #### L 100.0100, L500.3400 ####[facility] [address] [place], [address] Globulin (S) [Mass/Vol] 3.0 g/dL Normal 2.2-4.2 [facility] Comment on above: Order Comment: 109-1 Performed By: #### L 100.0100, L500.3400 ####[facility] [address] [place], [place], [address] T PROT 5.9 g/dL Low 6.4-8.2 [facility] Comment on above: Order Comment: 109-1 Performed By: #### L 100.0100, L500.3400 ####[facility] [address] [place], [place], [address] Lymphocytes Auto (Unsp spec) [#/Vol]Ordered By: Renard Burgos on 04-15-2024 Lymphocytes (Bld) [#/Vol] 1.93 10*3/uL 0.83-4.51 [facility] Lymphocytes/100 WBC Auto (Un sp spec)Ordered By: Renard Burgos on 04-15-2024 Lymphocytes/100 WBC (Bld) 16.9 % Low 19-41 [facility] MCV (mean corpuscular volume ) determinationOrdered By: Renard Burgos on 04-15-2024 MCV (RBC) [Entitic vol] 91.6 fL 80-94 [facility] Mean corpuscular hemoglobin (MCH) determinationOrdered By: Renard Burgos on 04-15-2024 MCH (RBC) [Entitic mass] 29.5 pg 27.0-32.0 [facility] Mean corpuscular hemoglobin concentration (MCHC) determinationOrdered By: Renard Burgos on 04-15-2024 MCHC (RBC) [Mass/Vol] 32.2 g/dL 32-36 [facility] Mean platelet volume determi nationOrdered By: Renard Burgos on 04-15-2024 Platelet mean volume (Bld) [Entitic vol] 11.1 fL 6.2-12.0 [facility] Monocyte percentageOrdered B y: Renard Burgos on 04-15-2024 Monocytes/100 WBC (Bld) 6.0 % 0-10 [facility] Neutrophil percentageOrdered By: Renard Burgos on 04-15-2024 Neutrophils/100 WBC (Bld) 76.0 % High 47-70 [facility] Nucleated red blood cell per centageOrdered By: Renard Burgos on 04-15-2024 Nucleated RBC/100 WBC (Bld) [Ratio] 0 % 0-5 [facility] Platelet countOrdered By: Garrick Bhatt on 04-15-2024 Platelets (Bld) [#/Vol] 197 10*3/uL 150-450 [facility] RBC Auto (Bld) [#/Vol]Ordere d By: Renard Burgos on 04-15-2024 RBC (Bld) [#/Vol] 4.64 10*6/uL 4.6-6.2 [facility] Serum globulin measurementOr dered By: Renard Burgos on 04-15-2024 Globulin (S) [Mass/Vol] 3.0 g/dL 2.2-4.2 [facility] Serum or plasma alanine kay otransferase (ALT) measurementOrdered By: Renard Burgos on 04-15-2024 ALT [Catalytic activity/Vol] 21 U/L 16-61 [facility] Serum or plasma albumin gordy urement (mass/volume)Ordered By: Renard Burgos on 04-15-2024 Albumin [Mass/Vol] 2.9 g/dL Low 3.2-5.0 [facility] Serum or plasma alkaline trace sphatase measurementOrdered By: Renard Burgos on 04-15-2024 ALP [Catalytic activity/Vol] 126 U/L High 45-117 [facility] Total proteinOrdered By: Lyubov Burgos on 04-15-2024 Protein [Mass/Vol] 5.9 g/dL Low 6.4-8.2 [facility] White blood cell (WBC) count Ordered By: Renard Burgos on 04-15-2024 WBC (Bld) [#/Vol] 11.4 10*3/uL High 4.4-11.0 [facility] Absolute neutrophil countOrd ered By: Renard Burgos on 04-08-2024 Neutrophils (Bld) [#/Vol] 5.7 10*3/uL 2.0-7.7 [facility] Basophil percentageOrdered B y: Renard Burgos on 04-08-2024 Basophils/100 WBC (Bld) 0.6 % 0-1 [facility] CBC W/Diff, Automatedon 12 Absolute Lymph 2.27 X10 3/uL Normal 0.83-4.51 [facility] Comment on above: Order Comment: 109.1 Performed By: #### L 100.0100 ####[facility] [address] [place], [address] Absolute Neut 5.7 X10 3/uL Normal 2.0-7.7 [facility] Comment on above: Order Comment: 109.1 Performed By: #### L 100.0100 ####[facility] [address] [place], [address] Basophils/100 WBC (Bld) 0.6 % Normal 0-1 [facility] Comment on above: Order Comment: 109.1 Performed By: #### L 100.0100 ####[facility] [address] [place], [address] Eosinophils/100 WBC (Bld) 0.5 % Normal 0-5 [facility] Comment on above: Order Comment: 109.1 Performed By: #### L 100.0100 ####[facility] [address] [place], [address] Erythrocyte distribution width (RBC) [Ratio] 12.6 % Normal 11.6-14.6 [facility] Comment on above: Order Comment: 109.1 Performed By: #### L 100.0100 ####[facility] [address] [place], [address] Hematocrit (Bld) [Volume fraction] 41.2 % Normal 40-54 [facility] Comment on above: Order Comment: 109.1 Performed By: #### L 100.0100 ####[facility] [address] [place], [address] Hemoglobin (Bld) [Mass/Vol] 13.3 g/dL Normal 13.0-16.5 [facility] Comment on above: Order Comment: 109.1 Performed By: #### L 100.0100 ####[facility] [address] [place], [address] IG% 0.200 Normal 0.0-0.9 [facility] Comment on above: Order Comment: 109.1 Result Comment: IG% - Immature Granulocytes (promyelocytes, myelocytes andmetamyelocytes) > 1% indicates that a LEFT SHIFT is Present. Performed By: #### L 100.0100 ####[facility] [address] [place], [address] Lymphocytes/100 WBC (Bld) 26.0 % Normal 19-41 [facility] Comment on above: Order Comment: 109.1 Performed By: #### L 100.0100 ####[facility] [address] [place], [address] MCH (RBC) [Entitic mass] 29.6 pg Normal 27.0-32.0 [facility] Comment on above: Order Comment: 109.1 Performed By: #### L 100.0100 ####[facility] [address] [place], [address] MCHC (RBC) [Mass/Vol] 32.3 g/dL Normal 32-36 [facility] Comment on above: Order Comment: 109.1 Performed By: #### L 100.0100 ####[facility] [address] [place], [address] MCV (RBC) [Entitic vol] 91.8 fL Normal 80-94 [facility] Comment on above: Order Comment: 109.1 Performed By: #### L 100.0100 ####[facility] [address] [place], [address] Monocytes/100 WBC (Bld) 7.8 % Normal 0-10 [facility] Comment on above: Order Comment: 109.1 Performed By: #### L 100.0100 ####[facility] [address] [place], [address] Neutrophils/100 WBC (Bld) 64.9 % Normal 47-70 [facility] Comment on above: Order Comment: 109.1 Performed By: #### L 100.0100 ####[facility] [address] [place], [address] Nucleated RBC (Bld) [#/Vol] 0 10*3/uL Normal 0-5 [facility] Comment on above: Order Comment: 109.1 Performed By: #### L 100.0100 ####[facility] [address] [place], [address] Platelet mean volume (Bld) [Entitic vol] 10.8 fL Normal 6.2-12.0 [facility] Comment on above: Order Comment: 109.1 Performed By: #### L 100.0100 ####[facility] [address] [place], [address] Platelets (Bld) [#/Vol] 208 10*3/uL Normal 150-450 [facility] Comment on above: Order Comment: 109.1 Performed By: #### L 100.0100 ####[facility] [address] [place], [address] RBC (Bld) [#/Vol] 4.49 10*6/uL Low 4.6-6.2 [facility] Comment on above: Order Comment: 109.1 Performed By: #### L 100.0100 ####[facility] [address] [place], [address] RDW SD 42.4 fl Normal 35.1-43.9 [facility] Comment on above: Order Comment: 109.1 Performed By: #### L 100.0100 ####[facility] [address] [place], [address] WBC (Bld) [#/Vol] 8.7 10*3/uL Normal 4.4-11.0 [facility] Comment on above: Order Comment: 109.1 Performed By: #### L 100.0100 ####[facility] [address] [place], [address] Eosinophil percentageOrdered By: Renard Burgos on 04-08-2024 Eosinophils/100 WBC (Bld) 0.5 % 0-5 [facility] Erythrocyte distribution wid th ratioOrdered By: Renard Burgos on 04-08-2024 Erythrocyte distribution width (RBC) [Ratio] 12.6 % 11.6-14.6 [facility] Erythrocyte distribution wid th standard deviationOrdered By: Renard Burgos on 04-08-2024 Erythrocyte distribution width (RBC) [Entitic vol] 42.4 fL 35.1-43.9 [facility] Hematocrit Auto (Bld) [Volum e fraction]Ordered By: Renard Burgos on 04-08-2024 Hematocrit (Bld) [Volume fraction] 41.2 % 40-54 [facility] Hemoglobin measurementOrdere d By: Renard Burgos on 04-08-2024 Hemoglobin (Bld) [Mass/Vol] 13.3 g/dL 13.0-16.5 [facility] Immature granulocytes/100 WB C Auto (Bld)Ordered By: Renard Burgos on 04-08-2024 Immature granulocytes/100 WBC (Bld) 0.200 % 0.0-0.9 [facility] Comment on above: IG% - Immature Granu locytes (promyelocytes, myelocytes and metamyelocytes) > 1% indicates that a LEFT SHIFT is Present. Lymphocytes Auto (Unsp spec) [#/Vol]Ordered By: Renard Burgos on 04-08-2024 Lymphocytes (Bld) [#/Vol] 2.27 10*3/uL 0.83-4.51 [facility] Lymphocytes/100 WBC Auto (Un sp spec)Ordered By: Renard Burgos on 04-08-2024 Lymphocytes/100 WBC (Bld) 26.0 % 19-41 [facility] MCV (mean corpuscular volume ) determinationOrdered By: Renard Burgos on 04-08-2024 MCV (RBC) [Entitic vol] 91.8 fL 80-94 [facility] Mean corpuscular hemoglobin (MCH) determinationOrdered By: Renard Burgos on 04-08-2024 MCH (RBC) [Entitic mass] 29.6 pg 27.0-32.0 [facility] Mean corpuscular hemoglobin concentration (MCHC) determinationOrdered By: Renard Burgos on 04-08-2024 MCHC (RBC) [Mass/Vol] 32.3 g/dL 32-36 [facility] Mean platelet volume determi nationOrdered By: Renard Burgos on 04-08-2024 Platelet mean volume (Bld) [Entitic vol] 10.8 fL 6.2-12.0 [facility] Monocyte percentageOrdered B y: Renard Burgos on 04-08-2024 Monocytes/100 WBC (Bld) 7.8 % 0-10 [facility] Neutrophil percentageOrdered By: Renard Burgos on 04-08-2024 Neutrophils/100 WBC (Bld) 64.9 % 47-70 [facility] Nucleated red blood cell per centageOrdered By: Renard Burgos on 04-08-2024 Nucleated RBC/100 WBC (Bld) [Ratio] 0 % 0-5 [facility] Platelet countOrdered By: Garrick Bhatt on 04-08-2024 Platelets (Bld) [#/Vol] 208 10*3/uL 150-450 [facility] RBC Auto (Bld) [#/Vol]Ordere d By: Renard Burgos on 04-08-2024 RBC (Bld) [#/Vol] 4.49 10*6/uL Low 4.6-6.2 [facility] White blood cell (WBC) count Ordered By: Renard Burgos on 04-08-2024 WBC (Bld) [#/Vol] 8.7 10*3/uL 4.4-11.0 [facility] Absolute neutrophil countOrd ered By: Renard Burgos on 04-01-2024 Neutrophils (Bld) [#/Vol] 7.1 10*3/uL 2.0-7.7 [facility] Basophil percentageOrdered B y: Renard Burgos on 04-01-2024 Basophils/100 WBC (Bld) 0.4 % 0-1 [facility] CBC W/Diff, Automatedon 12-0 2-2023 Absolute Lymph 1.97 X10 3/uL Normal 0.83-4.51 [facility] Comment on above: Order Comment: 109-1 Performed By: #### L 100.0100 ####[facility] [address] [place], [address] Absolute Neut 7.1 X10 3/uL Normal 2.0-7.7 [facility] Comment on above: Order Comment: 109-1 Performed By: #### L 100.0100 ####[facility] [address] [place], [address] Basophils/100 WBC (Bld) 0.4 % Normal 0-1 [facility] Comment on above: Order Comment: 109-1 Performed By: #### L 100.0100 ####[facility] [address] [place], [address] Eosinophils/100 WBC (Bld) 0.4 % Normal 0-5 [facility] Comment on above: Order Comment: 109-1 Performed By: #### L 100.0100 ####[facility] [address] [place], [address] Erythrocyte distribution width (RBC) [Ratio] 12.6 % Normal 11.6-14.6 [facility] Comment on above: Order Comment: 109-1 Performed By: #### L 100.0100 ####[facility] [address] [place], [address] Hematocrit (Bld) [Volume fraction] 41.7 % Normal 40-54 [facility] Comment on above: Order Comment: 109-1 Performed By: #### L 100.0100 ####[facility] [address] [place], [address] Hemoglobin (Bld) [Mass/Vol] 13.6 g/dL Normal 13.0-16.5 [facility] Comment on above: Order Comment: 109-1 Performed By: #### L 100.0100 ####[facility] [address] [place], [address] IG% 0.300 Normal 0.0-0.9 [facility] Comment on above: Order Comment: 109-1 Result Comment: IG% - Immature Granulocytes (promyelocytes, myelocytes andmetamyelocytes) > 1% indicates that a LEFT SHIFT is Present. Performed By: #### L 100.0100 ####[facility] [address] [place], [address] Lymphocytes/100 WBC (Bld) 20.0 % Normal 19-41 [facility] Comment on above: Order Comment: 109-1 Performed By: #### L 100.0100 ####[facility] [address] [place], [address] MCH (RBC) [Entitic mass] 29.7 pg Normal 27.0-32.0 [facility] Comment on above: Order Comment: 109-1 Performed By: #### L 100.0100 ####[facility] [address] [place], [address] MCHC (RBC) [Mass/Vol] 32.6 g/dL Normal 32-36 [facility] Comment on above: Order Comment: 109-1 Performed By: #### L 100.0100 ####[facility] [address] [place], [address] MCV (RBC) [Entitic vol] 91.0 fL Normal 80-94 [facility] Comment on above: Order Comment: 109-1 Performed By: #### L 100.0100 ####[facility] [address] [place], [address] Monocytes/100 WBC (Bld) 7.1 % Normal 0-10 [facility] Comment on above: Order Comment: 109-1 Performed By: #### L 100.0100 ####[facility] [address] [place], [address] Neutrophils/100 WBC (Bld) 71.8 % High 47-70 [facility] Comment on above: Order Comment: 109-1 Performed By: #### L 100.0100 ####[facility] [address] [place], [address] Nucleated RBC (Bld) [#/Vol] 0 10*3/uL Normal 0-5 [facility] Comment on above: Order Comment: 109-1 Performed By: #### L 100.0100 ####[facility] [address] [place], [address] Platelet mean volume (Bld) [Entitic vol] 11.3 fL Normal 6.2-12.0 [facility] Comment on above: Order Comment: 109-1 Performed By: #### L 100.0100 ####[facility] [address] [place], [address] Platelets (Bld) [#/Vol] 195 10*3/uL Normal 150-450 [facility] Comment on above: Order Comment: 109-1 Performed By: #### L 100.0100 ####[facility] [address] [place], [address] RBC (Bld) [#/Vol] 4.58 10*6/uL Low 4.6-6.2 [facility] Comment on above: Order Comment: 109-1 Performed By: #### L 100.0100 ####[facility] [address] [place], [address] RDW SD 41.2 fl Normal 35.1-43.9 [facility] Comment on above: Order Comment: 109-1 Performed By: #### L 100.0100 ####[facility] [address] [place], [address] WBC (Bld) [#/Vol] 9.8 10*3/uL Normal 4.4-11.0 [facility] Comment on above: Order Comment: 109-1 Performed By: #### L 100.0100 ####[facility] [address] [place], [address] Eosinophil percentageOrdered By: Renard Burgos on 04-01-2024 Eosinophils/100 WBC (Bld) 0.4 % 0-5 [facility] Erythrocyte distribution wid th ratioOrdered By: Renard Burgos on 04-01-2024 Erythrocyte distribution width (RBC) [Ratio] 12.6 % 11.6-14.6 [facility] Erythrocyte distribution wid th standard deviationOrdered By: Renard Burgos on 04-01-2024 Erythrocyte distribution width (RBC) [Entitic vol] 41.2 fL 35.1-43.9 [facility] Hematocrit Auto (Bld) [Volum e fraction]Ordered By: Renard Burgos on 04-01-2024 Hematocrit (Bld) [Volume fraction] 41.7 % 40-54 [facility] Hemoglobin measurementOrdere d By: Renard Burgos on 04-01-2024 Hemoglobin (Bld) [Mass/Vol] 13.6 g/dL 13.0-16.5 [facility] Immature granulocytes/100 WB C Auto (Bld)Ordered By: Renard Burgos on 04-01-2024 Immature granulocytes/100 WBC (Bld) 0.300 % 0.0-0.9 [facility] Comment on above: IG% - Immature Granu locytes (promyelocytes, myelocytes and metamyelocytes) > 1% indicates that a LEFT SHIFT is Present. Lymphocytes Auto (Unsp spec) [#/Vol]Ordered By: Renard Burgos on 04-01-2024 Lymphocytes (Bld) [#/Vol] 1.97 10*3/uL 0.83-4.51 [facility] Lymphocytes/100 WBC Auto (Un sp spec)Ordered By: Renard Burgos on 04-01-2024 Lymphocytes/100 WBC (Bld) 20.0 % 19-41 [facility] MCV (mean corpuscular volume ) determinationOrdered By: Renard Burgos on 04-01-2024 MCV (RBC) [Entitic vol] 91.0 fL 80-94 [facility] Mean corpuscular hemoglobin (MCH) determinationOrdered By: Renard Burgos on 04-01-2024 MCH (RBC) [Entitic mass] 29.7 pg 27.0-32.0 [facility] Mean corpuscular hemoglobin concentration (MCHC) determinationOrdered By: Renard Burgos on 04-01-2024 MCHC (RBC) [Mass/Vol] 32.6 g/dL 32-36 [facility] Mean platelet volume determi nationOrdered By: Renard Burgos on 04-01-2024 Platelet mean volume (Bld) [Entitic vol] 11.3 fL 6.2-12.0 [facility] Monocyte percentageOrdered B y: Renard Burgos on 04-01-2024 Monocytes/100 WBC (Bld) 7.1 % 0-10 [facility] Neutrophil percentageOrdered By: Renard Burgos on 04-01-2024 Neutrophils/100 WBC (Bld) 71.8 % High 47-70 [facility] Nucleated red blood cell per centageOrdered By: Renard Burgos on 04-01-2024 Nucleated RBC/100 WBC (Bld) [Ratio] 0 % 0-5 [facility] Platelet countOrdered By: Garrick Bhatt on 04-01-2024 Platelets (Bld) [#/Vol] 195 10*3/uL 150-450 [facility] RBC Auto (Bld) [#/Vol]Ordere d By: Renard Burgos on 04-01-2024 RBC (Bld) [#/Vol] 4.58 10*6/uL Low 4.6-6.2 [facility] White blood cell (WBC) count Ordered By: Renard Burgos on 04-01-2024 WBC (Bld) [#/Vol] 9.8 10*3/uL 4.4-11.0 [facility] Absolute neutrophil countOrd ered By: Renard Burgos on 03-25-2024 Neutrophils (Bld) [#/Vol] 5.4 10*3/uL 2.0-7.7 [facility] Basophil percentageOrdered B y: Renard Burgos on 03-25-2024 Basophils/100 WBC (Bld) 0.5 % 0-1 [facility] CBC W/Diff, Automatedon 11-2 -2023 Absolute Lymph 2.14 X10 3/uL Normal 0.83-4.51 [facility] Comment on above: Order Comment: 109-1 Performed By: #### L 100.0100 ####[facility] [address] [place], [address] Absolute Neut 5.4 X10 3/uL Normal 2.0-7.7 [facility] Comment on above: Order Comment: 109-1 Performed By: #### L 100.0100 ####[facility] [address] [place], [address] Basophils/100 WBC (Bld) 0.5 % Normal 0-1 [facility] Comment on above: Order Comment: 109-1 Performed By: #### L 100.0100 ####[facility] [address] [place], [address] Eosinophils/100 WBC (Bld) 0.7 % Normal 0-5 [facility] Comment on above: Order Comment: 109-1 Performed By: #### L 100.0100 ####[facility] [address] [place], [address] Erythrocyte distribution width (RBC) [Ratio] 12.7 % Normal 11.6-14.6 [facility] Comment on above: Order Comment: 109-1 Performed By: #### L 100.0100 ####[facility] [address] [place], [address] Hematocrit (Bld) [Volume fraction] 42.3 % Normal 40-54 [facility] Comment on above: Order Comment: 109-1 Performed By: #### L 100.0100 ####[facility] [address] [place], [address] Hemoglobin (Bld) [Mass/Vol] 13.7 g/dL Normal 13.0-16.5 [facility] Comment on above: Order Comment: 109-1 Performed By: #### L 100.0100 ####[facility] [address] [place], [address] IG% 0.500 Normal 0.0-0.9 [facility] Comment on above: Order Comment: 109-1 Result Comment: IG% - Immature Granulocytes (promyelocytes, myelocytes andmetamyelocytes) > 1% indicates that a LEFT SHIFT is Present. Performed By: #### L 100.0100 ####[facility] [address] [place], [address] Lymphocytes/100 WBC (Bld) 25.8 % Normal 19-41 [facility] Comment on above: Order Comment: 109-1 Performed By: #### L 100.0100 ####[facility] [address] [place], [address] MCH (RBC) [Entitic mass] 29.2 pg Normal 27.0-32.0 [facility] Comment on above: Order Comment: 109-1 Performed By: #### L 100.0100 ####[facility] [address] [place], [address] MCHC (RBC) [Mass/Vol] 32.4 g/dL Normal 32-36 [facility] Comment on above: Order Comment: 109-1 Performed By: #### L 100.0100 ####[facility] [address] [place], [address] MCV (RBC) [Entitic vol] 90.2 fL Normal 80-94 [facility] Comment on above: Order Comment: 109-1 Performed By: #### L 100.0100 ####[facility] [address] [place], [address] Monocytes/100 WBC (Bld) 8.0 % Normal 0-10 [facility] Comment on above: Order Comment: 109-1 Performed By: #### L 100.0100 ####[facility] [address] [place], [address] Neutrophils/100 WBC (Bld) 64.5 % Normal 47-70 [facility] Comment on above: Order Comment: 109-1 Performed By: #### L 100.0100 ####[facility] [address] [place], [address] Nucleated RBC (Bld) [#/Vol] 0 10*3/uL Normal 0-5 [facility] Comment on above: Order Comment: 109-1 Performed By: #### L 100.0100 ####[facility] [address] [place], [address] Platelet mean volume (Bld) [Entitic vol] 11.2 fL Normal 6.2-12.0 [facility] Comment on above: Order Comment: 109-1 Performed By: #### L 100.0100 ####[facility] [address] [place], [address] Platelets (Bld) [#/Vol] 204 10*3/uL Normal 150-450 [facility] Comment on above: Order Comment: 109-1 Performed By: #### L 100.0100 ####[facility] [address] [place], [address] RBC (Bld) [#/Vol] 4.69 10*6/uL Normal 4.6-6.2 [facility] Comment on above: Order Comment: 109-1 Performed By: #### L 100.0100 ####[facility] [address] [place], [address] RDW SD 41.8 fl Normal 35.1-43.9 [facility] Comment on above: Order Comment: 109-1 Performed By: #### L 100.0100 ####[facility] [address] [place], [address] WBC (Bld) [#/Vol] 8.3 10*3/uL Normal 4.4-11.0 [facility] Comment on above: Order Comment: 109-1 Performed By: #### L 100.0100 ####[facility] [address] [place], [address] Eosinophil percentageOrdered By: Renard Burgos on 03-25-2024 Eosinophils/100 WBC (Bld) 0.7 % 0-5 [facility] Erythrocyte distribution wid th ratioOrdered By: Renard Burgos on 03-25-2024 Erythrocyte distribution width (RBC) [Ratio] 12.7 % 11.6-14.6 [facility] Erythrocyte distribution wid th standard deviationOrdered By: Renard Burgos on 03-25-2024 Erythrocyte distribution width (RBC) [Entitic vol] 41.8 fL 35.1-43.9 [facility] Hematocrit Auto (Bld) [Volum e fraction]Ordered By: Renard Burgos on 03-25-2024 Hematocrit (Bld) [Volume fraction] 42.3 % 40-54 [facility] Hemoglobin measurementOrdere d By: Renard Burgos on 03-25-2024 Hemoglobin (Bld) [Mass/Vol] 13.7 g/dL 13.0-16.5 [facility] Immature granulocytes/100 WB C Auto (Bld)Ordered By: Renard Burgos on 03-25-2024 Immature granulocytes/100 WBC (Bld) 0.500 % 0.0-0.9 [facility] Comment on above: IG% - Immature Granu locytes (promyelocytes, myelocytes and metamyelocytes) > 1% indicates that a LEFT SHIFT is Present. Lymphocytes Auto (Unsp spec) [#/Vol]Ordered By: Renard Burgos on 03-25-2024 Lymphocytes (Bld) [#/Vol] 2.14 10*3/uL 0.83-4.51 [facility] Lymphocytes/100 WBC Auto (Un sp spec)Ordered By: Renard Burgos on 03-25-2024 Lymphocytes/100 WBC (Bld) 25.8 % 19-41 [facility] MCV (mean corpuscular volume ) determinationOrdered By: Renard Burgos on 03-25-2024 MCV (RBC) [Entitic vol] 90.2 fL 80-94 [facility] Mean corpuscular hemoglobin (MCH) determinationOrdered By: Renard Burgos on 03-25-2024 MCH (RBC) [Entitic mass] 29.2 pg 27.0-32.0 [facility] Mean corpuscular hemoglobin concentration (MCHC) determinationOrdered By: Renard Burgos on 03-25-2024 MCHC (RBC) [Mass/Vol] 32.4 g/dL 32-36 [facility] Mean platelet volume determi nationOrdered By: Renard Burgos on 03-25-2024 Platelet mean volume (Bld) [Entitic vol] 11.2 fL 6.2-12.0 [facility] Monocyte percentageOrdered B y: Renard Burgos on 03-25-2024 Monocytes/100 WBC (Bld) 8.0 % 0-10 [facility] Neutrophil percentageOrdered By: Renard Burgos on 03-25-2024 Neutrophils/100 WBC (Bld) 64.5 % 47-70 [facility] Nucleated red blood cell per centageOrdered By: Renard Burgos on 03-25-2024 Nucleated RBC/100 WBC (Bld) [Ratio] 0 % 0-5 [facility] Platelet countOrdered By: Garrick Bhatt on 03-25-2024 Platelets (Bld) [#/Vol] 204 10*3/uL 150-450 [facility] RBC Auto (Bld) [#/Vol]Ordere d By: Renard Burgos on 03-25-2024 RBC (Bld) [#/Vol] 4.69 10*6/uL 4.6-6.2 [facility] White blood cell (WBC) count Ordered By: Renard Burgos on 03-25-2024 WBC (Bld) [#/Vol] 8.3 10*3/uL 4.4-11.0 [facility] Absolute neutrophil countOrd ered By: Renard Burgos on 03-18-2024 Neutrophils (Bld) [#/Vol] 5.2 10*3/uL 2.0-7.7 [facility] Basophil percentageOrdered B y: Renard Burgos on 03-18-2024 Basophils/100 WBC (Bld) 0.6 % 0-1 [facility] CBC W/Diff, Automatedon 03-01 Absolute Lymph 2.23 X10 3/uL Normal 0.83-4.51 [facility] Comment on above: Order Comment: 109.1 Performed By: #### L 100.0100 ####[facility] [address] [place], [address] Absolute Neut 5.2 X10 3/uL Normal 2.0-7.7 [facility] Comment on above: Order Comment: 109.1 Performed By: #### L 100.0100 ####[facility] [address] [place], [address] Basophils/100 WBC (Bld) 0.6 % Normal 0-1 [facility] Comment on above: Order Comment: 109.1 Performed By: #### L 100.0100 ####[facility] [address] [place], [address] Eosinophils/100 WBC (Bld) 0.7 % Normal 0-5 [facility] Comment on above: Order Comment: 109.1 Performed By: #### L 100.0100 ####[facility] [address] [place], [address] Erythrocyte distribution width (RBC) [Ratio] 12.8 % Normal 11.6-14.6 [facility] Comment on above: Order Comment: 109.1 Performed By: #### L 100.0100 ####[facility] [address] [place], [address] Hematocrit (Bld) [Volume fraction] 42.0 % Normal 40-54 [facility] Comment on above: Order Comment: 109.1 Performed By: #### L 100.0100 ####[facility] [address] [place], [address] Hemoglobin (Bld) [Mass/Vol] 13.6 g/dL Normal 13.0-16.5 [facility] Comment on above: Order Comment: 109.1 Performed By: #### L 100.0100 ####[facility] [address] [place], [address] IG% 0.500 Normal 0.0-0.9 [facility] Comment on above: Order Comment: 109.1 Result Comment: IG% - Immature Granulocytes (promyelocytes, myelocytes andmetamyelocytes) > 1% indicates that a LEFT SHIFT is Present. Performed By: #### L 100.0100 ####[facility] [address] [place], [address] Lymphocytes/100 WBC (Bld) 27.0 % Normal 19-41 [facility] Comment on above: Order Comment: 109.1 Performed By: #### L 100.0100 ####[facility] [address] [place], [address] MCH (RBC) [Entitic mass] 29.5 pg Normal 27.0-32.0 [facility] Comment on above: Order Comment: 109.1 Performed By: #### L 100.0100 ####[facility] [address] [place], [address] MCHC (RBC) [Mass/Vol] 32.4 g/dL Normal 32-36 [facility] Comment on above: Order Comment: 109.1 Performed By: #### L 100.0100 ####[facility] [address] [place], [address] MCV (RBC) [Entitic vol] 91.1 fL Normal 80-94 [facility] Comment on above: Order Comment: 109.1 Performed By: #### L 100.0100 ####[facility] [address] [place], [address] Monocytes/100 WBC (Bld) 8.5 % Normal 0-10 [facility] Comment on above: Order Comment: 109.1 Performed By: #### L 100.0100 ####[facility] [address] [place], [address] Neutrophils/100 WBC (Bld) 62.7 % Normal 47-70 [facility] Comment on above: Order Comment: 109.1 Performed By: #### L 100.0100 ####[facility] [address] [place], [address] Nucleated RBC (Bld) [#/Vol] 0 10*3/uL Normal 0-5 [facility] Comment on above: Order Comment: 109.1 Performed By: #### L 100.0100 ####[facility] [address] [place], [address] Platelet mean volume (Bld) [Entitic vol] 10.8 fL Normal 6.2-12.0 [facility] Comment on above: Order Comment: 109.1 Performed By: #### L 100.0100 ####[facility] [address] [place], [address] Platelets (Bld) [#/Vol] 211 10*3/uL Normal 150-450 [facility] Comment on above: Order Comment: 109.1 Performed By: #### L 100.0100 ####[facility] [address] [place], [address] RBC (Bld) [#/Vol] 4.61 10*6/uL Normal 4.6-6.2 [facility] Comment on above: Order Comment: 109.1 Performed By: #### L 100.0100 ####[facility] [address] [place], [address] RDW SD 42.3 fl Normal 35.1-43.9 [facility] Comment on above: Order Comment: 109.1 Performed By: #### L 100.0100 ####[facility] [address] [place], [place], [address] WBC (Bld) [#/Vol] 8.3 10*3/uL Normal 4.4-11.0 [facility] Comment on above: Order Comment: 109.1 Performed By: #### L 100.0100 ####[facility] [address] [place], [place], [id number] Eosinophil percentageOrdered By: Renard Burgos on 03-18-2024 Eosinophils/100 WBC (Bld) 0.7 % 0-5 [facility] Erythrocyte distribution wid th ratioOrdered By: Renard Burgos on 03-18-2024 Erythrocyte distribution width (RBC) [Ratio] 12.8 % 11.6-14.6 [facility] Erythrocyte distribution wid th standard deviationOrdered By: Renard Burgos on 03-18-2024 Erythrocyte distribution width (RBC) [Entitic vol] 42.3 fL 35.1-43.9 [facility] Hematocrit Auto (Bld) [Volum e fraction]Ordered By: Renard Burgos on 03-18-2024 Hematocrit (Bld) [Volume fraction] 42.0 % 40-54 [facility] Hemoglobin measurementOrdere d By: Renard Burgos on 03-18-2024 Hemoglobin (Bld) [Mass/Vol] 13.6 g/dL 13.0-16.5 [facility] Immature granulocytes/100 WB C Auto (Bld)Ordered By: Renard Burgos on 03-18-2024 Immature granulocytes/100 WBC (Bld) 0.500 % 0.0-0.9 [facility] Comment on above: IG% - Immature Granu locytes (promyelocytes, myelocytes and metamyelocytes) > 1% indicates that a LEFT SHIFT is Present. Lymphocytes Auto (Unsp spec) [#/Vol]Ordered By: Renard Burgos on 03-18-2024 Lymphocytes (Bld) [#/Vol] 2.23 10*3/uL 0.83-4.51 [facility] Lymphocytes/100 WBC Auto (Un sp spec)Ordered By: Renard Burgos on 03-18-2024 Lymphocytes/100 WBC (Bld) 27.0 % 19-41 [facility] MCV (mean corpuscular volume ) determinationOrdered By: Renard Burgos on 03-18-2024 MCV (RBC) [Entitic vol] 91.1 fL 80-94 [facility] Mean corpuscular hemoglobin (MCH) determinationOrdered By: Renard Burgos on 03-18-2024 MCH (RBC) [Entitic mass] 29.5 pg 27.0-32.0 [facility] Mean corpuscular hemoglobin concentration (MCHC) determinationOrdered By: Renard Burgos on 03-18-2024 MCHC (RBC) [Mass/Vol] 32.4 g/dL 32-36 [facility] Mean platelet volume determi nationOrdered By: Renard Brugos on 03-18-2024 Platelet mean volume (Bld) [Entitic vol] 10.8 fL 6.2-12.0 [facility] Monocyte percentageOrdered B y: Renard Burgos on 03-18-2024 Monocytes/100 WBC (Bld) 8.5 % 0-10 [facility] Neutrophil percentageOrdered By: Renard Burgos on 03-18-2024 Neutrophils/100 WBC (Bld) 62.7 % 47-70 [facility] Nucleated red blood cell per centageOrdered By: Renard Burgos on 03-18-2024 Nucleated RBC/100 WBC (Bld) [Ratio] 0 % 0-5 [facility] Platelet countOrdered By: Garrick Bhatt on 03-18-2024 Platelets (Bld) [#/Vol] 211 10*3/uL 150-450 [facility] RBC Auto (Bld) [#/Vol]Ordere d By: Renard Burgos on 03-18-2024 RBC (Bld) [#/Vol] 4.61 10*6/uL 4.6-6.2 [facility] White blood cell (WBC) count Ordered By: Renard Burgos on 03-18-2024 WBC (Bld) [#/Vol] 8.3 10*3/uL 4.4-11.0 [facility] Absolute neutrophil countOrd ered By: Renard Burgos on 03-11-2024 Neutrophils (Bld) [#/Vol] 6.2 10*3/uL 2.0-7.7 [facility] Automated blood erythrocyte countOrdered By: Renard Burgos on 03-11-2024 RBC (Bld) [#/Vol] 4.54 10*6/uL Low 4.6-6.2 [facility] Comment on above: Order Comment: 109.1 Performed By: #### L 100.0100 ####[facility] [address] [place], [address] Automated blood hematocrit ( percentage)Ordered By: Renard Burgos on 03-11-2024 Hematocrit (Bld) [Volume fraction] 41.5 % Normal 40-54 [facility] Comment on above: Order Comment: 109.1 Performed By: #### L 100.0100 ####[facility] [address] [place], [address] Automated lymphocyte count a s percentage of total leukocytesOrdered By: Renard Burgos on 03-11-2024 Lymphocytes/100 WBC (Bld) 25.6 % Normal 19-41 [facility] Comment on above: Order Comment: 109.1 Performed By: #### L 100.0100 ####[facility] [address] [place], [address] Basophil percentageOrdered B y: Renard Burgos on 03-11-2024 Basophils/100 WBC (Bld) 0.5 % Normal 0-1 [facility] Comment on above: Order Comment: 109.1 Performed By: #### L 100.0100 ####[facility] [address] [place], [address] CBC W/Diff, Automatedon 03-01 Absolute Lymph 2.50 X10 3/uL Normal 0.83-4.51 [facility] Comment on above: Order Comment: 109.1 Performed By: #### L 100.0100 ####[facility] [address] [place], [address] Absolute Neut 6.2 X10 3/uL Normal 2.0-7.7 [facility] Comment on above: Order Comment: 109.1 Performed By: #### L 100.0100 ####[facility] [address] [place], [address] IG% 0.500 Normal 0.0-0.9 [facility] Comment on above: Order Comment: 109.1 Result Comment: IG% - Immature Granulocytes (promyelocytes, myelocytes andmetamyelocytes) > 1% indicates that a LEFT SHIFT is Present. Performed By: #### L 100.0100 ####[facility] [address] [place], [address] Nucleated RBC (Bld) [#/Vol] 0 10*3/uL Normal 0-5 [facility] Comment on above: Order Comment: 109.1 Performed By: #### L 100.0100 ####[facility] [address] [place], [address] RDW SD 41.5 fl Normal 35.1-43.9 [facility] Comment on above: Order Comment: 109.1 Performed By: #### L 100.0100 ####[facility] [address] [place], [address] Eosinophil percentageOrdered By: Renard Burgos on 03-11-2024 Eosinophils/100 WBC (Bld) 0.6 % Normal 0-5 [facility] Comment on above: Order Comment: 109.1 Performed By: #### L 100.0100 ####[facility] [address] [place], [address] Erythrocyte distribution wid th ratioOrdered By: Renard Burgos on 03-11-2024 Erythrocyte distribution width (RBC) [Ratio] 12.7 % Normal 11.6-14.6 [facility] Comment on above: Order Comment: 109.1 Performed By: #### L 100.0100 ####[facility] [address] [place], [address] Erythrocyte distribution wid th standard deviationOrdered By: Renard Burgos on 03-11-2024 Erythrocyte distribution width (RBC) [Entitic vol] 41.5 fL 35.1-43.9 [facility] Hemoglobin measurementOrdere d By: Renard Burgos on 03-11-2024 Hemoglobin (Bld) [Mass/Vol] 13.8 g/dL Normal 13.0-16.5 [facility] Comment on above: Order Comment: 109.1 Performed By: #### L 100.0100 ####[facility] [address] [place], [place], [phone] Immature granulocytes/100 WB C Auto (Bld)Ordered By: Renard Burgos on 03-11-2024 Immature granulocytes/100 WBC (Bld) 0.500 % 0.0-0.9 [facility] Comment on above: IG% - Immature Granu locytes (promyelocytes, myelocytes and metamyelocytes) > 1% indicates that a LEFT SHIFT is Present. Lymphocytes Auto (Unsp spec) [#/Vol]Ordered By: Renard Burgos on 03-11-2024 Lymphocytes (Bld) [#/Vol] 2.50 10*3/uL 0.83-4.51 [facility] MCV (mean corpuscular volume ) determinationOrdered By: Renard Burgos on 03-11-2024 MCV (RBC) [Entitic vol] 91.4 fL Normal 80-94 [facility] Comment on above: Order Comment: 109.1 Performed By: #### L 100.0100 ####[facility] [address] [place], [place], [phone] Mean corpuscular hemoglobin (MCH) determinationOrdered By: Renard Burgos on 03-11-2024 MCH (RBC) [Entitic mass] 30.4 pg Normal 27.0-32.0 [facility] Comment on above: Order Comment: 109.1 Performed By: #### L 100.0100 ####[facility] [address] [place], [place], [phone] Mean corpuscular hemoglobin concentration (MCHC) determinationOrdered By: Renard Burgos on 03-11-2024 MCHC (RBC) [Mass/Vol] 33.3 g/dL Normal 32-36 [facility] Comment on above: Order Comment: 109.1 Performed By: #### L 100.0100 ####[facility] [address] [place], [address] Mean platelet volume determi nationOrdered By: Renard Burgos on 03-11-2024 Platelet mean volume (Bld) [Entitic vol] 11.0 fL Normal 6.2-12.0 [facility] Comment on above: Order Comment: 109.1 Performed By: #### L 100.0100 ####[facility] [address] [place], [address] Monocyte percentageOrdered B y: Renard Burgos on 03-11-2024 Monocytes/100 WBC (Bld) 9.0 % Normal 0-10 [facility] Comment on above: Order Comment: 109.1 Performed By: #### L 100.0100 ####[facility] [address] [place], [address] Neutrophil percentageOrdered By: Renard Burgos on 03-11-2024 Neutrophils/100 WBC (Bld) 63.8 % Normal 47-70 [facility] Comment on above: Order Comment: 109.1 Performed By: #### L 100.0100 ####[facility] [address] [place], [address] Nucleated red blood cell per centageOrdered By: Renard Burgos on 03-11-2024 Nucleated RBC/100 WBC (Bld) [Ratio] 0 % 0-5 [facility] Platelet countOrdered By: Garrick Bhatt on 03-11-2024 Platelets (Bld) [#/Vol] 220 10*3/uL Normal 150-450 [facility] Comment on above: Order Comment: 109.1 Performed By: #### L 100.0100 ####[facility] [address] [place], [address] White blood cell (WBC) count Ordered By: Renard Burgos on 03-11-2024 WBC (Bld) [#/Vol] 9.8 10*3/uL Normal 4.4-11.0 [facility] Comment on above: Order Comment: 109.1 Performed By: #### L 100.0100 ####[facility] [address] [place], [address] CBC W/Diff, Automatedon 11-0 Absolute Lymph 1.99 X10 3/uL Normal 0.83-4.51 [facility] Comment on above: Order Comment: 109.1 Performed By: #### L 100.0100 ####[facility] [address] [place], [address] Absolute Neut 5.3 X10 3/uL Normal 2.0-7.7 [facility] Comment on above: Order Comment: 109.1 Performed By: #### L 100.0100 ####[facility] [address] [place], [address] Basophils/100 WBC (Bld) 0.6 % Normal 0-1 [facility] Comment on above: Order Comment: 109.1 Performed By: #### L 100.0100 ####[facility] [address] [place], [address] Eosinophils/100 WBC (Bld) 0.7 % Normal 0-5 [facility] Comment on above: Order Comment: 109.1 Performed By: #### L 100.0100 ####[facility] [address] [place], [address] Erythrocyte distribution width (RBC) [Ratio] 12.7 % Normal 11.6-14.6 [facility] Comment on above: Order Comment: 109.1 Performed By: #### L 100.0100 ####[facility] [address] [place], [address] Hematocrit (Bld) [Volume fraction] 42.1 % Normal 40-54 [facility] Comment on above: Order Comment: 109.1 Performed By: #### L 100.0100 ####[facility] [address] [place], [address] Hemoglobin (Bld) [Mass/Vol] 14.0 g/dL Normal 13.0-16.5 [facility] Comment on above: Order Comment: 109.1 Performed By: #### L 100.0100 ####[facility] [address] [place], [address] IG% 0.400 Normal 0.0-0.9 [facility] Comment on above: Order Comment: 109.1 Result Comment: IG% - Immature Granulocytes (promyelocytes, myelocytes andmetamyelocytes) > 1% indicates that a LEFT SHIFT is Present. Performed By: #### L 100.0100 ####[facility] [address] [place], [address] Lymphocytes/100 WBC (Bld) 24.5 % Normal 19-41 [facility] Comment on above: Order Comment: 109.1 Performed By: #### L 100.0100 ####[facility] [address] [place], [address] MCH (RBC) [Entitic mass] 30.2 pg Normal 27.0-32.0 [facility] Comment on above: Order Comment: 109.1 Performed By: #### L 100.0100 ####[facility] [address] [place], [address] MCHC (RBC) [Mass/Vol] 33.3 g/dL Normal 32-36 [facility] Comment on above: Order Comment: 109.1 Performed By: #### L 100.0100 ####[facility] [address] [place], [address] MCV (RBC) [Entitic vol] 90.7 fL Normal 80-94 [facility] Comment on above: Order Comment: 109.1 Performed By: #### L 100.0100 ####[facility] [address] [place], [address] Monocytes/100 WBC (Bld) 8.2 % Normal 0-10 [facility] Comment on above: Order Comment: 109.1 Performed By: #### L 100.0100 ####[facility] [address] [place], [address] Neutrophils/100 WBC (Bld) 65.6 % Normal 47-70 [facility] Comment on above: Order Comment: 109.1 Performed By: #### L 100.0100 ####[facility] [address] [place], [address] Nucleated RBC (Bld) [#/Vol] 0 10*3/uL Normal 0-5 [facility] Comment on above: Order Comment: 109.1 Performed By: #### L 100.0100 ####[facility] [address] [place], [address] Platelet mean volume (Bld) [Entitic vol] 11.0 fL Normal 6.2-12.0 [facility] Comment on above: Order Comment: 109.1 Performed By: #### L 100.0100 ####[facility] [address] [place], [address] Platelets (Bld) [#/Vol] 216 10*3/uL Normal 150-450 [facility] Comment on above: Order Comment: 109.1 Performed By: #### L 100.0100 ####[facility] [address] [place], [address] RBC (Bld) [#/Vol] 4.64 10*6/uL Normal 4.6-6.2 [facility] Comment on above: Order Comment: 109.1 Performed By: #### L 100.0100 ####[facility] [address] [place], [address] RDW SD 41.9 fl Normal 35.1-43.9 [facility] Comment on above: Order Comment: 109.1 Performed By: #### L 100.0100 ####[facility] [address] [place], [address] WBC (Bld) [#/Vol] 8.1 10*3/uL Normal 4.4-11.0 [facility] Comment on above: Order Comment: 109.1 Performed By: #### L 100.0100 ####[facility] [address] [place], [address] CBC W/Diff, Automatedon 10-2 Absolute Lymph 2.15 X10 3/uL Normal 0.83-4.51 [facility] Comment on above: Order Comment: 109.1 Performed By: #### L 100.0100 ####[facility] [address] [place], [address] Absolute Neut 7.1 X10 3/uL Normal 2.0-7.7 [facility] Comment on above: Order Comment: 109.1 Performed By: #### L 100.0100 ####[facility] [address] [place], [address] Basophils/100 WBC (Bld) 0.4 % Normal 0-1 [facility] Comment on above: Order Comment: 109.1 Performed By: #### L 100.0100 ####[facility] [address] [place], [address] Eosinophils/100 WBC (Bld) 0.6 % Normal 0-5 [facility] Comment on above: Order Comment: 109.1 Performed By: #### L 100.0100 ####[facility] [address] [place], [address] Erythrocyte distribution width (RBC) [Ratio] 12.6 % Normal 11.6-14.6 [facility] Comment on above: Order Comment: 109.1 Performed By: #### L 100.0100 ####[facility] [address] [place], [address] Hematocrit (Bld) [Volume fraction] 40.2 % Normal 40-54 [facility] Comment on above: Order Comment: 109.1 Performed By: #### L 100.0100 ####[facility] [address] [place], [address] Hemoglobin (Bld) [Mass/Vol] 13.6 g/dL Normal 13.0-16.5 [facility] Comment on above: Order Comment: 109.1 Performed By: #### L 100.0100 ####[facility] [address] [place], [address] IG% 0.500 Normal 0.0-0.9 [facility] Comment on above: Order Comment: 109.1 Result Comment: IG% - Immature Granulocytes (promyelocytes, myelocytes andmetamyelocytes) > 1% indicates that a LEFT SHIFT is Present. Performed By: #### L 100.0100 ####[facility] [address] [place], [address] Lymphocytes/100 WBC (Bld) 20.9 % Normal 19-41 [facility] Comment on above: Order Comment: 109.1 Performed By: #### L 100.0100 ####[facility] [address] [place], [address] MCH (RBC) [Entitic mass] 30.6 pg Normal 27.0-32.0 [facility] Comment on above: Order Comment: 109.1 Performed By: #### L 100.0100 ####[facility] [address] [place], [address] MCHC (RBC) [Mass/Vol] 33.8 g/dL Normal 32-36 [facility] Comment on above: Order Comment: 109.1 Performed By: #### L 100.0100 ####[facility] [address] [place], [address] MCV (RBC) [Entitic vol] 90.5 fL Normal 80-94 [facility] Comment on above: Order Comment: 109.1 Performed By: #### L 100.0100 ####[facility] [address] [place], [address] Monocytes/100 WBC (Bld) 8.5 % Normal 0-10 [facility] Comment on above: Order Comment: 109.1 Performed By: #### L 100.0100 ####[facility] [address] [place], [address] Neutrophils/100 WBC (Bld) 69.1 % Normal 47-70 [facility] Comment on above: Order Comment: 109.1 Performed By: #### L 100.0100 ####[facility] [address] [place], [address] Nucleated RBC (Bld) [#/Vol] 0 10*3/uL Normal 0-5 [facility] Comment on above: Order Comment: 109.1 Performed By: #### L 100.0100 ####[facility] [address] [place], [address] Platelet mean volume (Bld) [Entitic vol] 11.2 fL Normal 6.2-12.0 [facility] Comment on above: Order Comment: 109.1 Performed By: #### L 100.0100 ####[facility] [address] [place], [address] Platelets (Bld) [#/Vol] 226 10*3/uL Normal 150-450 [facility] Comment on above: Order Comment: 109.1 Performed By: #### L 100.0100 ####[facility] [address] [place], [address] RBC (Bld) [#/Vol] 4.44 10*6/uL Low 4.6-6.2 [facility] Comment on above: Order Comment: 109.1 Performed By: #### L 100.0100 ####[facility] [address] [place], [address] RDW SD 41.5 fl Normal 35.1-43.9 [facility] Comment on above: Order Comment: 109.1 Performed By: #### L 100.0100 ####[facility] [address] [place], [address] WBC (Bld) [#/Vol] 10.3 10*3/uL Normal 4.4-11.0 [facility] Comment on above: Order Comment: 109.1 Performed By: #### L 100.0100 ####[facility] [address] [place], [address] CBC-Complete Blood Cnt No Di ffon 02-23-2024 Erythrocyte distribution width (RBC) [Ratio] 12.9 % Normal 11.6-14.6 [facility] Comment on above: Order Comment: 109-1 Performed By: #### L 500.4100, L100.0500, L500.4050 ####[facility] [address] [place], [address] Hematocrit (Bld) [Volume fraction] 41.6 % Normal 40-54 [facility] Comment on above: Order Comment: 109-1 Performed By: #### L 500.4100, L100.0500, L500.4050 ####[facility] [address] [place], [address] Hemoglobin (Bld) [Mass/Vol] 14.0 g/dL Normal 13.0-16.5 [facility] Comment on above: Order Comment: 109-1 Performed By: #### L 500.4100, L100.0500, L500.4050 ####[facility] [address] [place], [address] MCH (RBC) [Entitic mass] 30.6 pg Normal 27.0-32.0 [facility] Comment on above: Order Comment: 109-1 Performed By: #### L 500.4100, L100.0500, L500.4050 ####[facility] [address] [place], [address] MCHC (RBC) [Mass/Vol] 33.7 g/dL Normal 32-36 [facility] Comment on above: Order Comment: 109-1 Performed By: #### L 500.4100, L100.0500, L500.4050 ####[facility] [address] [place], [address] MCV (RBC) [Entitic vol] 91.0 fL Normal 80-94 [facility] Comment on above: Order Comment: 109-1 Performed By: #### L 500.4100, L100.0500, L500.4050 ####[facility] [address] [place], [address] Platelet mean volume (Bld) [Entitic vol] 11.5 fL Normal 6.2-12.0 [facility] Comment on above: Order Comment: 109-1 Performed By: #### L 500.4100, L100.0500, L500.4050 ####[facility] [address] [place], [address] Platelets (Bld) [#/Vol] 209 10*3/uL Normal 150-450 [facility] Comment on above: Order Comment: 109-1 Performed By: #### L 500.4100, L100.0500, L500.4050 ####[facility] [address] [place], [address] RBC (Bld) [#/Vol] 4.57 10*6/uL Low 4.6-6.2 [facility] Comment on above: Order Comment: 109-1 Performed By: #### L 500.4100, L100.0500, L500.4050 ####[facility] [address] [place], [address] RDW SD 42.4 fl Normal 35.1-43.9 [facility] Comment on above: Order Comment: 109-1 Performed By: #### L 500.4100, L100.0500, L500.4050 ####[facility] [address] [place], [address] WBC (Bld) [#/Vol] 8.4 10*3/uL Normal 4.4-11.0 [facility] Comment on above: Order Comment: 109-1 Performed By: #### L 500.4100, L100.0500, L500.4050 ####[facility] [address] [place], [address] Comprehensive Metabolic Prof [facility] 02-23-2024 Albumin [Mass/Vol] 3.1 g/dL Low 3.2-5.0 [facility] Comment on above: Order Comment: 109-1 Performed By: #### L 500.4100, L100.0500, L500.4050 ####[facility] [address] [place], [address] Albumin/Globulin [Mass ratio] 1.1 {ratio} Normal 0.9-2.4 [facility] Comment on above: Order Comment: 109-1 Performed By: #### L 500.4100, L100.0500, L500.4050 ####[facility] [address] [place], [address] ALK P 123 U/L High 45-117 [facility] Comment on above: Order Comment: 109-1 Performed By: #### L 500.4100, L100.0500, L500.4050 ####[facility] [address] [place], [address] ALT [Catalytic activity/Vol] 16 U/L Normal 16-61 [facility] Comment on above: Order Comment: 109-1 Performed By: #### L 500.4100, L100.0500, L500.4050 ####[facility] [address] [place], [address] AST [Catalytic activity/Vol] 10 U/L Low 15-37 [facility] Comment on above: Order Comment: 109-1 Performed By: #### L 500.4100, L100.0500, L500.4050 ####[facility] [address] [place], [address] Bilirubin [Mass/Vol] 0.50 mg/dL Normal 0.20-1.00 [facility] Comment on above: Order Comment: 109-1 Result Comment: For patients on eltrombopag therapy, use of Dimension Bozman TBIL is not recommended. Performed By: #### L 500.4100, L100.0500, L500.4050 ####[facility] [address] [place], [address] BUN/CRE 24.9 RATIO High 10-20 [facility] Comment on above: Order Comment: 109-1 Performed By: #### L 500.4100, L100.0500, L500.4050 ####[facility] [address] [place], [address] CA,Total 8.5 mg/dL Normal 8.5-10.1 [facility] Comment on above: Order Comment: 109-1 Performed By: #### L 500.4100, L100.0500, L500.4050 ####[facility] [address] [place], [address] Chloride [Moles/Vol] 109 mmol/L High 98-107 [facility] Comment on above: Order Comment: 109-1 Performed By: #### L 500.4100, L100.0500, L500.4050 ####[facility] [address] [place], [address] CO2 [Moles/Vol] 27.0 mmol/L Normal 21.0-32.0 [facility] Comment on above: Order Comment: 109-1 Performed By: #### L 500.4100, L100.0500, L500.4050 ####[facility] [address] [place], [address] Creatinine [Mass/Vol] 0.64 mg/dL Low 0.70-1.30 [facility] Comment on above: Order Comment: 109-1 Result Comment: The validity of the calculated GFR GFRAA in patients over70 years has not been determined. Clinical correlation isessential. Performed By: #### L 500.4100, L100.0500, L500.4050 ####[facility] [address] [place], [address] EST GFR - AA 160 mL/min Normal >60 [facility] Comment on above: Order Comment: 109-1 Result Comment: Afri can Norwegian GFR Calc Performed By: #### L 500.4100, L100.0500, L500.4050 ####[facility] [address] [place], [address] GAP 6 Normal 5-15 [facility] Comment on above: Order Comment: 109-1 Performed By: #### L 500.4100, L100.0500, L500.4050 ####[facility] [address] [place], [address] GFR/1.73 sq M.predicted among non-blacks MDRD (S/P/Bld) [Vol rate/Area] 132 mL/min/{1.73_m2} Normal >60 [facility] Comment on above: Order Comment: 109- Result Comment: Non- GFR Calc Performed By: #### L 500.4100, L100.0500, L500.4050 ####[facility] [address] [place], [address] Globulin (S) [Mass/Vol] 2.9 g/dL Normal 2.2-4.2 [facility] Comment on above: Order Comment: 109-1 Performed By: #### L 500.4100, L100.0500, L500.4050 ####[facility] [address] [place], [address] Glucose [Mass/Vol] 111 mg/dL High 74-106 [facility] Comment on above: Order Comment: 109- Result Comment: Fast ing Glucose result from 100 to 125 mg/dLsuggests IMPAIRED HOMEOSTASIS per A.D.A. criteria. Performed By: #### L 500.4100, L100.0500, L500.4050 ####[facility] [address] [place], [address] Potassium [Moles/Vol] 3.6 mmol/L Normal 3.5-5.1 [facility] Comment on above: Order Comment: 109-1 Performed By: #### L 500.4100, L100.0500, L500.4050 ####[facility] [address] [place], [address] Sodium [Moles/Vol] 141 mmol/L Normal 136-145 [facility] Comment on above: Order Comment: 109-1 Performed By: #### L 500.4100, L100.0500, L500.4050 ####[facility] [address] [place], [address] T PROT 6.0 g/dL Low 6.4-8.2 [facility] Comment on above: Order Comment: 109-1 Performed By: #### L 500.4100, L100.0500, L500.4050 ####[facility] [address] [place], [address] Urea nitrogen [Mass/Vol] 16 mg/dL Normal 7-18 [facility] Comment on above: Order Comment: 109-1 Performed By: #### L 500.4100, L100.0500, L500.4050 ####[facility] [address] [place], [address] Lipid Profileon 02-23-2024 Cholesterol [Mass/Vol] 123 mg/dL Normal 200 [facility] Comment on above: Order Comment: 109-1 Result Comment: <200 mg/dL Desirable 200-240 mg/dL Borderline >240 mg/dL High Risk Performed By: #### L 500.4100, L100.0500, L500.4050 ####[facility] [address] [place], [address] Cholesterol in HDL [Mass/Vol] 28 mg/dL Low [facility] Comment on above: Order Comment: 109-1 Result Comment: The drugs N-Acetylcysteine and Metamizole may falselydepress this assay. Reference Range HDL <40 mg/dL Low HDL Cholesterol HDL >or= 60 mg/dL High HDL Cholesterol Performed By: #### L 500.4100, L100.0500, L500.4050 ####[facility] [address] [place], [address] Cholesterol in LDL [Mass/Vol] 71 mg/dL Normal 0-130 [facility] Comment on above: Order Comment: 109-1 Performed By: #### L 500.4100, L100.0500, L500.4050 ####[facility] [address] [place], [address] Cholesterol in VLDL [Mass/Vol] 24 mg/dL Normal 5-40 [facility] Comment on above: Order Comment: 109-1 Performed By: #### L 500.4100, L100.0500, L500.4050 ####[facility] [address] [place], [address] Triglyceride [Mass/Vol] 119 mg/dL Normal [facility] Comment on above: Order Comment: 109-1 Result Comment: The drugs N-Acetylcysteine and Metamizole may falselydepress this assay.Serum Triglycerides Reference Interval Normal <150 mg/dL Borderline high 150 - 199 mg/dL High 200 - 499 mg/dL Very High > or = 500 mg/dL Performed By: #### L 500.4100, L100.0500, L500.4050 ####[facility] [address] [place], [address] CBC W/Diff, Automatedon 10-2 Absolute Lymph 1.92 X10 3/uL Normal 0.83-4.51 [facility] Comment on above: Order Comment: 109-1 Performed By: #### L 100.0100 ####[facility] [address] [place], [address] Absolute Neut 6.9 X10 3/uL Normal 2.0-7.7 [facility] Comment on above: Order Comment: 109-1 Performed By: #### L 100.0100 ####[facility] [address] [place], [address] Basophils/100 WBC (Bld) 0.4 % Normal 0-1 [facility] Comment on above: Order Comment: 109-1 Performed By: #### L 100.0100 ####[facility] [address] [place], [address] Eosinophils/100 WBC (Bld) 0.6 % Normal 0-5 [facility] Comment on above: Order Comment: 109-1 Performed By: #### L 100.0100 ####[facility] [address] [place], [address] Erythrocyte distribution width (RBC) [Ratio] 12.9 % Normal 11.6-14.6 [facility] Comment on above: Order Comment: 109-1 Performed By: #### L 100.0100 ####[facility] [address] [place], [address] Hematocrit (Bld) [Volume fraction] 40.4 % Normal 40-54 [facility] Comment on above: Order Comment: 109-1 Performed By: #### L 100.0100 ####[facility] [address] [place], [address] Hemoglobin (Bld) [Mass/Vol] 13.3 g/dL Normal 13.0-16.5 [facility] Comment on above: Order Comment: 109-1 Performed By: #### L 100.0100 ####[facility] [address] [place], [address] IG% 0.300 Normal 0.0-0.9 [facility] Comment on above: Order Comment: 109-1 Result Comment: IG% - Immature Granulocytes (promyelocytes, myelocytes andmetamyelocytes) > 1% indicates that a LEFT SHIFT is Present. Performed By: #### L 100.0100 ####[facility] [address] [place], [address] Lymphocytes/100 WBC (Bld) 20.1 % Normal 19-41 [facility] Comment on above: Order Comment: 109-1 Performed By: #### L 100.0100 ####[facility] [address] [place], [address] MCH (RBC) [Entitic mass] 30.2 pg Normal 27.0-32.0 [facility] Comment on above: Order Comment: 109-1 Performed By: #### L 100.0100 ####[facility] [address] [place], [address] MCHC (RBC) [Mass/Vol] 32.9 g/dL Normal 32-36 [facility] Comment on above: Order Comment: 109-1 Performed By: #### L 100.0100 ####[facility] [address] [place], [address] MCV (RBC) [Entitic vol] 91.6 fL Normal 80-94 [facility] Comment on above: Order Comment: 109-1 Performed By: #### L 100.0100 ####[facility] [address] [place], [address] Monocytes/100 WBC (Bld) 6.8 % Normal 0-10 [facility] Comment on above: Order Comment: 109-1 Performed By: #### L 100.0100 ####[facility] [address] [place], [address] Neutrophils/100 WBC (Bld) 71.8 % High 47-70 [facility] Comment on above: Order Comment: 109-1 Performed By: #### L 100.0100 ####[facility] [address] [place], [address] Nucleated RBC (Bld) [#/Vol] 0 10*3/uL Normal 0-5 [facility] Comment on above: Order Comment: 109-1 Performed By: #### L 100.0100 ####[facility] [address] [place], [address] Platelet mean volume (Bld) [Entitic vol] 10.9 fL Normal 6.2-12.0 [facility] Comment on above: Order Comment: 109-1 Performed By: #### L 100.0100 ####[facility] [address] [place], [address] Platelets (Bld) [#/Vol] 209 10*3/uL Normal 150-450 [facility] Comment on above: Order Comment: 109-1 Performed By: #### L 100.0100 ####[facility] [address] [place], [address] RBC (Bld) [#/Vol] 4.41 10*6/uL Low 4.6-6.2 [facility] Comment on above: Order Comment: 109-1 Performed By: #### L 100.0100 ####[facility] [address] [place], [address] RDW SD 42.8 fl Normal 35.1-43.9 [facility] Comment on above: Order Comment: 109-1 Performed By: #### L 100.0100 ####[facility] [address] [place], [address] WBC (Bld) [#/Vol] 9.6 10*3/uL Normal 4.4-11.0 [facility] Comment on above: Order Comment: 109-1 Performed By: #### L 100.0100 ####[facility] [address] [place], [address] CBC W/Diff, Automatedon 10- Absolute Lymph 2.08 X10 3/uL Normal 0.83-4.51 [facility] Comment on above: Order Comment: 109.1 Performed By: #### L 100.0100 ####[facility] [address] [place], [address] Absolute Neut 6.9 X10 3/uL Normal 2.0-7.7 [facility] Comment on above: Order Comment: 109.1 Performed By: #### L 100.0100 ####[facility] [address] [place], [address] Basophils/100 WBC (Bld) 0.5 % Normal 0-1 [facility] Comment on above: Order Comment: 109.1 Performed By: #### L 100.0100 ####[facility] [address] [place], [address] Eosinophils/100 WBC (Bld) 0.3 % Normal 0-5 [facility] Comment on above: Order Comment: 109.1 Performed By: #### L 100.0100 ####[facility] [address] [place], [address] Erythrocyte distribution width (RBC) [Ratio] 12.8 % Normal 11.6-14.6 [facility] Comment on above: Order Comment: 109.1 Performed By: #### L 100.0100 ####[facility] [address] [place], [address] Hematocrit (Bld) [Volume fraction] 40.6 % Normal 40-54 [facility] Comment on above: Order Comment: 109.1 Performed By: #### L 100.0100 ####[facility] [address] [place], [address] Hemoglobin (Bld) [Mass/Vol] 13.1 g/dL Normal 13.0-16.5 [facility] Comment on above: Order Comment: 109.1 Performed By: #### L 100.0100 ####[facility] [address] [place], [address] IG% 0.300 Normal 0.0-0.9 [facility] Comment on above: Order Comment: 109.1 Result Comment: IG% - Immature Granulocytes (promyelocytes, myelocytes andmetamyelocytes) > 1% indicates that a LEFT SHIFT is Present. Performed By: #### L 100.0100 ####[facility] [address] [place], [address] Lymphocytes/100 WBC (Bld) 21.2 % Normal 19-41 [facility] Comment on above: Order Comment: 109.1 Performed By: #### L 100.0100 ####[facility] [address] [place], [address] MCH (RBC) [Entitic mass] 29.8 pg Normal 27.0-32.0 [facility] Comment on above: Order Comment: 109.1 Performed By: #### L 100.0100 ####[facility] [address] [place], [address] MCHC (RBC) [Mass/Vol] 32.3 g/dL Normal 32-36 [facility] Comment on above: Order Comment: 109.1 Performed By: #### L 100.0100 ####[facility] [address] [place], [address] MCV (RBC) [Entitic vol] 92.5 fL Normal 80-94 [facility] Comment on above: Order Comment: 109.1 Performed By: #### L 100.0100 ####[facility] [address] [place], [address] Monocytes/100 WBC (Bld) 7.6 % Normal 0-10 [facility] Comment on above: Order Comment: 109.1 Performed By: #### L 100.0100 ####[facility] [address] [place], [address] Neutrophils/100 WBC (Bld) 70.1 % High 47-70 [facility] Comment on above: Order Comment: 109.1 Performed By: #### L 100.0100 ####[facility] [address] [place], [address] Nucleated RBC (Bld) [#/Vol] 0 10*3/uL Normal 0-5 [facility] Comment on above: Order Comment: 109.1 Performed By: #### L 100.0100 ####[facility] [address] [place], [address] Platelet mean volume (Bld) [Entitic vol] 10.8 fL Normal 6.2-12.0 [facility] Comment on above: Order Comment: 109.1 Performed By: #### L 100.0100 ####[facility] [address] [place], [address] Platelets (Bld) [#/Vol] 221 10*3/uL Normal 150-450 [facility] Comment on above: Order Comment: 109.1 Performed By: #### L 100.0100 ####[facility] [address] [place], [address] RBC (Bld) [#/Vol] 4.39 10*6/uL Low 4.6-6.2 [facility] Comment on above: Order Comment: 109.1 Performed By: #### L 100.0100 ####[facility] [address] [place], [address] RDW SD 43.4 fl Normal 35.1-43.9 [facility] Comment on above: Order Comment: 109.1 Performed By: #### L 100.0100 ####[facility] [address] [place], [address] WBC (Bld) [#/Vol] 9.8 10*3/uL Normal 4.4-11.0 [facility] Comment on above: Order Comment: 109.1 Performed By: #### L 100.0100 ####[facility] [address] [place], [address] CBC W/Diff, Automatedon 10-0 7-2024 Absolute Lymph 2.06 X10 3/uL Normal 0.83-4.51 [facility] Comment on above: Order Comment: 109.1 Performed By: #### L 100.0100 ####[facility] [address] [place], [address] Absolute Neut 4.8 X10 3/uL Normal 2.0-7.7 [facility] Comment on above: Order Comment: 109.1 Performed By: #### L 100.0100 ####[facility] [address] [place], [address] Basophils/100 WBC (Bld) 0.7 % Normal 0-1 [facility] Comment on above: Order Comment: 109.1 Performed By: #### L 100.0100 ####[facility] [address] [place], [address] Eosinophils/100 WBC (Bld) 0.5 % Normal 0-5 [facility] Comment on above: Order Comment: 109.1 Performed By: #### L 100.0100 ####[facility] [address] [place], [address] Erythrocyte distribution width (RBC) [Ratio] 13.2 % Normal 11.6-14.6 [facility] Comment on above: Order Comment: 109.1 Performed By: #### L 100.0100 ####[facility] [address] [place], [address] Hematocrit (Bld) [Volume fraction] 42.7 % Normal 40-54 [facility] Comment on above: Order Comment: 109.1 Performed By: #### L 100.0100 ####[facility] [address] [place], [address] Hemoglobin (Bld) [Mass/Vol] 13.5 g/dL Normal 13.0-16.5 [facility] Comment on above: Order Comment: 109.1 Performed By: #### L 100.0100 ####[facility] [address] [place], [address] IG% 0.400 Normal 0.0-0.9 [facility] Comment on above: Order Comment: 109.1 Result Comment: IG% - Immature Granulocytes (promyelocytes, myelocytes andmetamyelocytes) > 1% indicates that a LEFT SHIFT is Present. Performed By: #### L 100.0100 ####[facility] [address] [place], [address] Lymphocytes/100 WBC (Bld) 26.9 % Normal 19-41 [facility] Comment on above: Order Comment: 109.1 Performed By: #### L 100.0100 ####[facility] [address] [place], [address] MCH (RBC) [Entitic mass] 29.3 pg Normal 27.0-32.0 [facility] Comment on above: Order Comment: 109.1 Performed By: #### L 100.0100 ####[facility] [address] [place], [address] MCHC (RBC) [Mass/Vol] 31.6 g/dL Low 32-36 [facility] Comment on above: Order Comment: 109.1 Performed By: #### L 100.0100 ####[facility] [address] [place], [address] MCV (RBC) [Entitic vol] 92.8 fL Normal 80-94 [facility] Comment on above: Order Comment: 109.1 Performed By: #### L 100.0100 ####[facility] [address] [place], [address] Monocytes/100 WBC (Bld) 9.3 % Normal 0-10 [facility] Comment on above: Order Comment: 109.1 Performed By: #### L 100.0100 ####[facility] [address] [place], [address] Neutrophils/100 WBC (Bld) 62.2 % Normal 47-70 [facility] Comment on above: Order Comment: 109.1 Performed By: #### L 100.0100 ####[facility] [address] [place], [address] Nucleated RBC (Bld) [#/Vol] 0 10*3/uL Normal 0-5 [facility] Comment on above: Order Comment: 109.1 Performed By: #### L 100.0100 ####[facility] [address] [place], [address] Platelet mean volume (Bld) [Entitic vol] 11.2 fL Normal 6.2-12.0 [facility] Comment on above: Order Comment: 109.1 Performed By: #### L 100.0100 ####[facility] [address] [place], [address] Platelets (Bld) [#/Vol] 192 10*3/uL Normal 150-450 [facility] Comment on above: Order Comment: 109.1 Performed By: #### L 100.0100 ####[facility] [address] [place], [address] RBC (Bld) [#/Vol] 4.60 10*6/uL Normal 4.6-6.2 [facility] Comment on above: Order Comment: 109.1 Performed By: #### L 100.0100 ####[facility] [address] [place], [address] RDW SD 44.9 fl High 35.1-43.9 [facility] Comment on above: Order Comment: 109.1 Performed By: #### L 100.0100 ####[facility] [address] [place], [address] WBC (Bld) [#/Vol] 7.7 10*3/uL Normal 4.4-11.0 [facility] Comment on above: Order Comment: 109.1 Performed By: #### L 100.0100 ####[facility] [address] [place], [address] CBC W/Diff, Automatedon 09-3 0-2024 Absolute Lymph 2.12 X10 3/uL Normal 0.83-4.51 [facility] Comment on above: Order Comment: 109.1 Performed By: #### L 100.0100 ####[facility] [address] [place], [address] Absolute Neut 5.2 X10 3/uL Normal 2.0-7.7 [facility] Comment on above: Order Comment: 109.1 Performed By: #### L 100.0100 ####[facility] [address] [place], [address] Basophils/100 WBC (Bld) 0.6 % Normal 0-1 [facility] Comment on above: Order Comment: 109.1 Performed By: #### L 100.0100 ####[facility] [address] [place], [address] Eosinophils/100 WBC (Bld) 0.5 % Normal 0-5 [facility] Comment on above: Order Comment: 109.1 Performed By: #### L 100.0100 ####[facility] [address] [place], [address] Erythrocyte distribution width (RBC) [Ratio] 13.2 % Normal 11.6-14.6 [facility] Comment on above: Order Comment: 109.1 Performed By: #### L 100.0100 ####[facility] [address] [place], [address] Hematocrit (Bld) [Volume fraction] 46.0 % Normal 40-54 [facility] Comment on above: Order Comment: 109.1 Performed By: #### L 100.0100 ####[facility] [address] [place], [address] Hemoglobin (Bld) [Mass/Vol] 14.5 g/dL Normal 13.0-16.5 [facility] Comment on above: Order Comment: 109.1 Performed By: #### L 100.0100 ####[facility] [address] [place], [address] IG% 0.200 Normal 0.0-0.9 [facility] Comment on above: Order Comment: 109.1 Result Comment: IG% - Immature Granulocytes (promyelocytes, myelocytes andmetamyelocytes) > 1% indicates that a LEFT SHIFT is Present. Performed By: #### L 100.0100 ####[facility] [address] [place], [address] Lymphocytes/100 WBC (Bld) 25.9 % Normal 19-41 [facility] Comment on above: Order Comment: 109.1 Performed By: #### L 100.0100 ####[facility] [address] [place], [address] MCH (RBC) [Entitic mass] 29.2 pg Normal 27.0-32.0 [facility] Comment on above: Order Comment: 109.1 Performed By: #### L 100.0100 ####[facility] [address] [place], [address] MCHC (RBC) [Mass/Vol] 31.5 g/dL Low 32-36 [facility] Comment on above: Order Comment: 109.1 Performed By: #### L 100.0100 ####[facility] [address] [place], [address] MCV (RBC) [Entitic vol] 92.7 fL Normal 80-94 [facility] Comment on above: Order Comment: 109.1 Performed By: #### L 100.0100 ####[facility] [address] [place], [address] Monocytes/100 WBC (Bld) 9.0 % Normal 0-10 [facility] Comment on above: Order Comment: 109.1 Performed By: #### L 100.0100 ####[facility] [address] [place], [address] Neutrophils/100 WBC (Bld) 63.8 % Normal 47-70 [facility] Comment on above: Order Comment: 109.1 Performed By: #### L 100.0100 ####[facility] [address] [place], [address] Nucleated RBC (Bld) [#/Vol] 0 10*3/uL Normal 0-5 [facility] Comment on above: Order Comment: 109.1 Performed By: #### L 100.0100 ####[facility] [address] [place], [address] Platelet mean volume (Bld) [Entitic vol] 10.9 fL Normal 6.2-12.0 [facility] Comment on above: Order Comment: 109.1 Performed By: #### L 100.0100 ####[facility] [address] [place], [address] Platelets (Bld) [#/Vol] 192 10*3/uL Normal 150-450 [facility] Comment on above: Order Comment: 109.1 Performed By: #### L 100.0100 ####[facility] [address] [place], [address] RBC (Bld) [#/Vol] 4.96 10*6/uL Normal 4.6-6.2 [facility] Comment on above: Order Comment: 109.1 Performed By: #### L 100.0100 ####[facility] [address] [place], [address] RDW SD 44.6 fl High 35.1-43.9 [facility] Comment on above: Order Comment: 109.1 Performed By: #### L 100.0100 ####[facility] [address] [place], [address] WBC (Bld) [#/Vol] 8.2 10*3/uL Normal 4.4-11.0 [facility] Comment on above: Order Comment: 109.1 Performed By: #### L 100.0100 ####[facility] [address] [place], [address] CBC W/Diff, Automatedon 09- Absolute Lymph 1.62 X10 3/uL Normal 0.83-4.51 [facility] Comment on above: Order Comment: 109-1 Performed By: #### L 100.0100 ####[facility] [address] [place], [address] Absolute Neut 8.1 X10 3/uL High 2.0-7.7 [facility] Comment on above: Order Comment: 109-1 Performed By: #### L 100.0100 ####[facility] [address] [place], [address] Basophils/100 WBC (Bld) 0.4 % Normal 0-1 [facility] Comment on above: Order Comment: 109-1 Performed By: #### L 100.0100 ####[facility] [address] [place], [address] Eosinophils/100 WBC (Bld) 0.1 % Normal 0-5 [facility] Comment on above: Order Comment: 109-1 Performed By: #### L 100.0100 ####[facility] [address] [place], [address] Erythrocyte distribution width (RBC) [Ratio] 12.9 % Normal 11.6-14.6 [facility] Comment on above: Order Comment: 109-1 Performed By: #### L 100.0100 ####[facility] [address] [place], [address] Hematocrit (Bld) [Volume fraction] 41.9 % Normal 40-54 [facility] Comment on above: Order Comment: 109-1 Performed By: #### L 100.0100 ####[facility] [address] [place], [address] Hemoglobin (Bld) [Mass/Vol] 13.5 g/dL Normal 13.0-16.5 [facility] Comment on above: Order Comment: 109-1 Performed By: #### L 100.0100 ####[facility] [address] [place], [address] IG% 0.400 Normal 0.0-0.9 [facility] Comment on above: Order Comment: 109-1 Result Comment: IG% - Immature Granulocytes (promyelocytes, myelocytes andmetamyelocytes) > 1% indicates that a LEFT SHIFT is Present. Performed By: #### L 100.0100 ####[facility] [address] [place], [address] Lymphocytes/100 WBC (Bld) 15.2 % Low 19-41 [facility] Comment on above: Order Comment: 109-1 Performed By: #### L 100.0100 ####[facility] [address] [place], [address] MCH (RBC) [Entitic mass] 29.3 pg Normal 27.0-32.0 [facility] Comment on above: Order Comment: 109-1 Performed By: #### L 100.0100 ####[facility] [address] [place], [address] MCHC (RBC) [Mass/Vol] 32.2 g/dL Normal 32-36 [facility] Comment on above: Order Comment: 109-1 Performed By: #### L 100.0100 ####[facility] [address] [place], [address] MCV (RBC) [Entitic vol] 90.9 fL Normal 80-94 [facility] Comment on above: Order Comment: 109-1 Performed By: #### L 100.0100 ####[facility] [address] [place], [address] Monocytes/100 WBC (Bld) 7.4 % Normal 0-10 [facility] Comment on above: Order Comment: 109-1 Performed By: #### L 100.0100 ####[facility] [address] [place], [address] Neutrophils/100 WBC (Bld) 76.5 % High 47-70 [facility] Comment on above: Order Comment: 109-1 Performed By: #### L 100.0100 ####[facility] [address] [place], [address] Nucleated RBC (Bld) [#/Vol] 0 10*3/uL Normal 0-5 [facility] Comment on above: Order Comment: 109-1 Performed By: #### L 100.0100 ####[facility] [address] [place], [address] Platelet mean volume (Bld) [Entitic vol] 11.2 fL Normal 6.2-12.0 [facility] Comment on above: Order Comment: 109-1 Performed By: #### L 100.0100 ####[facility] [address] [place], [address] Platelets (Bld) [#/Vol] 220 10*3/uL Normal 150-450 [facility] Comment on above: Order Comment: 109-1 Performed By: #### L 100.0100 ####[facility] [address] [place], [address] RBC (Bld) [#/Vol] 4.61 10*6/uL Normal 4.6-6.2 [facility] Comment on above: Order Comment: 109-1 Performed By: #### L 100.0100 ####[facility] [address] [place], [address] RDW SD 42.1 fl Normal 35.1-43.9 [facility] Comment on above: Order Comment: 109-1 Performed By: #### L 100.0100 ####[facility] [address] [place], [address] WBC (Bld) [#/Vol] 10.6 10*3/uL Normal 4.4-11.0 [facility] Comment on above: Order Comment: 109-1 Performed By: #### L 100.0100 ####[facility] [address] [place], [address] CBC W/Diff, Automatedon - Absolute Lymph 2.15 X10 3/uL Normal 0.83-4.51 [facility] Comment on above: Order Comment: 109-1 Performed By: #### L 100.0100 ####[facility] [address] [place], [address] Absolute Neut 5.4 X10 3/uL Normal 2.0-7.7 [facility] Comment on above: Order Comment: 109-1 Performed By: #### L 100.0100 ####[facility] [address] [place], [address] Basophils/100 WBC (Bld) 0.7 % Normal 0-1 [facility] Comment on above: Order Comment: 109-1 Performed By: #### L 100.0100 ####[facility] [address] [place], [address] Eosinophils/100 WBC (Bld) 0.7 % Normal 0-5 [facility] Comment on above: Order Comment: 109-1 Performed By: #### L 100.0100 ####[facility] [address] [place], [address] Erythrocyte distribution width (RBC) [Ratio] 13.1 % Normal 11.6-14.6 [facility] Comment on above: Order Comment: 109-1 Performed By: #### L 100.0100 ####[facility] [address] [place], [address] Hematocrit (Bld) [Volume fraction] 44.1 % Normal 40-54 [facility] Comment on above: Order Comment: 109-1 Performed By: #### L 100.0100 ####[facility] [address] [place], [address] Hemoglobin (Bld) [Mass/Vol] 14.2 g/dL Normal 13.0-16.5 [facility] Comment on above: Order Comment: 109-1 Performed By: #### L 100.0100 ####[facility] [address] [place], [address] IG% 0.400 Normal 0.0-0.9 [facility] Comment on above: Order Comment: 109-1 Result Comment: IG% - Immature Granulocytes (promyelocytes, myelocytes andmetamyelocytes) > 1% indicates that a LEFT SHIFT is Present. Performed By: #### L 100.0100 ####[facility] [address] [place], [address] Lymphocytes/100 WBC (Bld) 25.7 % Normal 19-41 [facility] Comment on above: Order Comment: 109-1 Performed By: #### L 100.0100 ####[facility] [address] [place], [address] MCH (RBC) [Entitic mass] 29.5 pg Normal 27.0-32.0 [facility] Comment on above: Order Comment: 109-1 Performed By: #### L 100.0100 ####[facility] [address] [place], [address] MCHC (RBC) [Mass/Vol] 32.2 g/dL Normal 32-36 [facility] Comment on above: Order Comment: 109-1 Performed By: #### L 100.0100 ####[facility] [address] [place], [address] MCV (RBC) [Entitic vol] 91.7 fL Normal 80-94 [facility] Comment on above: Order Comment: 109-1 Performed By: #### L 100.0100 ####[facility] [address] [place], [address] Monocytes/100 WBC (Bld) 7.5 % Normal 0-10 [facility] Comment on above: Order Comment: 109-1 Performed By: #### L 100.0100 ####[facility] [address] [place], [address] Neutrophils/100 WBC (Bld) 65.0 % Normal 47-70 [facility] Comment on above: Order Comment: 109-1 Performed By: #### L 100.0100 ####[facility] [address] [place], [address] Nucleated RBC (Bld) [#/Vol] 0 10*3/uL Normal 0-5 [facility] Comment on above: Order Comment: 109-1 Performed By: #### L 100.0100 ####[facility] [address] [place], [address] Platelet mean volume (Bld) [Entitic vol] 11.1 fL Normal 6.2-12.0 [facility] Comment on above: Order Comment: 109-1 Performed By: #### L 100.0100 ####[facility] [address] [place], [address] Platelets (Bld) [#/Vol] 200 10*3/uL Normal 150-450 [facility] Comment on above: Order Comment: 109-1 Performed By: #### L 100.0100 ####[facility] [address] [place], [address] RBC (Bld) [#/Vol] 4.81 10*6/uL Normal 4.6-6.2 [facility] Comment on above: Order Comment: 109-1 Performed By: #### L 100.0100 ####[facility] [address] [place], [address] RDW SD 44.1 fl High 35.1-43.9 [facility] Comment on above: Order Comment: 109-1 Performed By: #### L 100.0100 ####[facility] [address] [place], [address] WBC (Bld) [#/Vol] 8.4 10*3/uL Normal 4.4-11.0 [facility] Comment on above: Order Comment: 109-1 Performed By: #### L 100.0100 ####[facility] [address] [place], [address] CBC W/Diff, Automatedon 09-0 9-2023 Absolute Lymph 3.20 X10 3/uL Normal 0.83-4.51 [facility] Comment on above: Order Comment: 109-1 Performed By: #### L 100.0100 ####[facility] [address] [place], [address] Absolute Neut 5.5 X10 3/uL Normal 2.0-7.7 [facility] Comment on above: Order Comment: 109-1 Performed By: #### L 100.0100 ####[facility] [address] [place], [address] Basophils/100 WBC (Bld) 0.5 % Normal 0-1 [facility] Comment on above: Order Comment: 109-1 Performed By: #### L 100.0100 ####[facility] [address] [place], [address] Eosinophils/100 WBC (Bld) 0.6 % Normal 0-5 [facility] Comment on above: Order Comment: 109-1 Performed By: #### L 100.0100 ####[facility] [address] [place], [address] Erythrocyte distribution width (RBC) [Ratio] 13.2 % Normal 11.6-14.6 [facility] Comment on above: Order Comment: 109-1 Performed By: #### L 100.0100 ####[facility] [address] [place], [address] Hematocrit (Bld) [Volume fraction] 44.3 % Normal 40-54 [facility] Comment on above: Order Comment: 109-1 Performed By: #### L 100.0100 ####[facility] [address] [place], [address] Hemoglobin (Bld) [Mass/Vol] 14.4 g/dL Normal 13.0-16.5 [facility] Comment on above: Order Comment: 109-1 Performed By: #### L 100.0100 ####[facility] [address] [place], [address] IG% 0.400 Normal 0.0-0.9 [facility] Comment on above: Order Comment: 109-1 Result Comment: IG% - Immature Granulocytes (promyelocytes, myelocytes andmetamyelocytes) > 1% indicates that a LEFT SHIFT is Present. Performed By: #### L 100.0100 ####[facility] [address] [place], [address] Lymphocytes/100 WBC (Bld) 31.4 % Normal 19-41 [facility] Comment on above: Order Comment: 109-1 Performed By: #### L 100.0100 ####[facility] [address] [place], [address] MCH (RBC) [Entitic mass] 29.8 pg Normal 27.0-32.0 [facility] Comment on above: Order Comment: 109-1 Performed By: #### L 100.0100 ####[facility] [address] [place], [address] MCHC (RBC) [Mass/Vol] 32.5 g/dL Normal 32-36 [facility] Comment on above: Order Comment: 109-1 Performed By: #### L 100.0100 ####[facility] [address] [place], [address] MCV (RBC) [Entitic vol] 91.7 fL Normal 80-94 [facility] Comment on above: Order Comment: 109-1 Performed By: #### L 100.0100 ####[facility] [address] [place], [address] Monocytes/100 WBC (Bld) 12.8 % High 0-10 [facility] Comment on above: Order Comment: 109-1 Performed By: #### L 100.0100 ####[facility] [address] [place], [address] Neutrophils/100 WBC (Bld) 54.3 % Normal 47-70 [facility] Comment on above: Order Comment: 109-1 Performed By: #### L 100.0100 ####[facility] [address] [place], [address] Nucleated RBC (Bld) [#/Vol] 0 10*3/uL Normal 0-5 [facility] Comment on above: Order Comment: 109-1 Performed By: #### L 100.0100 ####[facility] [address] [place], [address] Platelet mean volume (Bld) [Entitic vol] 11.9 fL Normal 6.2-12.0 [facility] Comment on above: Order Comment: 109-1 Performed By: #### L 100.0100 ####[facility] [address] [place], [address] Platelets (Bld) [#/Vol] 187 10*3/uL Normal 150-450 [facility] Comment on above: Order Comment: 109-1 Performed By: #### L 100.0100 ####[facility] [address] [place], [address] RBC (Bld) [#/Vol] 4.83 10*6/uL Normal 4.6-6.2 [facility] Comment on above: Order Comment: 109-1 Performed By: #### L 100.0100 ####[facility] [address] [place], [address] RDW SD 44.3 fl High 35.1-43.9 [facility] Comment on above: Order Comment: 109-1 Performed By: #### L 100.0100 ####[facility] [address] [place], [address] WBC (Bld) [#/Vol] 10.2 10*3/uL Normal 4.4-11.0 [facility] Comment on above: Order Comment: 109-1 Performed By: #### L 100.0100 ####[facility] [address] [place], [address] CBC W/Diff, Automatedon 09-0 -2023 Absolute Lymph 2.57 X10 3/uL Normal 0.83-4.51 [facility] Comment on above: Order Comment: 109-1 Performed By: #### L 100.0100, L500.4100 ####[facility] [address] [place], [address] Absolute Neut 5.9 X10 3/uL Normal 2.0-7.7 [facility] Comment on above: Order Comment: 109-1 Performed By: #### L 100.0100, L500.4100 ####[facility] [address] [place], [address] Basophils/100 WBC (Bld) 0.5 % Normal 0-1 [facility] Comment on above: Order Comment: 109-1 Performed By: #### L 100.0100, L500.4100 ####[facility] [address] [place], [address] Eosinophils/100 WBC (Bld) 0.4 % Normal 0-5 [facility] Comment on above: Order Comment: 109-1 Performed By: #### L 100.0100, L500.4100 ####[facility] [address] [place], [address] Erythrocyte distribution width (RBC) [Ratio] 13.1 % Normal 11.6-14.6 [facility] Comment on above: Order Comment: 109-1 Performed By: #### L 100.0100, L500.4100 ####[facility] [address] [place], [address] Hematocrit (Bld) [Volume fraction] 40.6 % Normal 40-54 [facility] Comment on above: Order Comment: 109-1 Performed By: #### L 100.0100, L500.4100 ####[facility] [address] [place], [address] Hemoglobin (Bld) [Mass/Vol] 13.3 g/dL Normal 13.0-16.5 [facility] Comment on above: Order Comment: 109-1 Performed By: #### L 100.0100, L500.4100 ####[facility] [address] [place], [address] IG% 0.300 Normal 0.0-0.9 [facility] Comment on above: Order Comment: 109-1 Result Comment: IG% - Immature Granulocytes (promyelocytes, myelocytes andmetamyelocytes) > 1% indicates that a LEFT SHIFT is Present. Performed By: #### L 100.0100, L500.4100 ####[facility] [address] [place], [address] Lymphocytes/100 WBC (Bld) 27.0 % Normal 19-41 [facility] Comment on above: Order Comment: 109-1 Performed By: #### L 100.0100, L500.4100 ####[facility] [address] [place], [place], [address] MCH (RBC) [Entitic mass] 30.2 pg Normal 27.0-32.0 [facility] Comment on above: Order Comment: 109-1 Performed By: #### L 100.0100, L500.4100 ####[facility] [address] [place], [address] MCHC (RBC) [Mass/Vol] 32.8 g/dL Normal 32-36 [facility] Comment on above: Order Comment: 109-1 Performed By: #### L 100.0100, L500.4100 ####[facility] [address] [place], [address] MCV (RBC) [Entitic vol] 92.3 fL Normal 80-94 [facility] Comment on above: Order Comment: 109-1 Performed By: #### L 100.0100, L500.4100 ####[facility] [address] [place], [address] Monocytes/100 WBC (Bld) 9.7 % Normal 0-10 [facility] Comment on above: Order Comment: 109-1 Performed By: #### L 100.0100, L500.4100 ####[facility] [address] [place], [address] Neutrophils/100 WBC (Bld) 62.1 % Normal 47-70 [facility] Comment on above: Order Comment: 109-1 Performed By: #### L 100.0100, L500.4100 ####[facility] [address] [place], [address] Nucleated RBC (Bld) [#/Vol] 0 10*3/uL Normal 0-5 [facility] Comment on above: Order Comment: 109-1 Performed By: #### L 100.0100, L500.4100 ####[facility] [address] [place], [address] Platelet mean volume (Bld) [Entitic vol] 12.1 fL High 6.2-12.0 [facility] Comment on above: Order Comment: 109-1 Performed By: #### L 100.0100, L500.4100 ####[facility] [address] [place], [address] Platelets (Bld) [#/Vol] 172 10*3/uL Normal 150-450 [facility] Comment on above: Order Comment: 109-1 Performed By: #### L 100.0100, L500.4100 ####[facility] [address] [place], [address] RBC (Bld) [#/Vol] 4.40 10*6/uL Low 4.6-6.2 [facility] Comment on above: Order Comment: 109-1 Performed By: #### L 100.0100, L500.4100 ####[facility] [address] [place], [address] RDW SD 44.0 fl High 35.1-43.9 [facility] Comment on above: Order Comment: 109-1 Performed By: #### L 100.0100, L500.4100 ####[facility] [address] [place], [address] WBC (Bld) [#/Vol] 9.5 10*3/uL Normal 4.4-11.0 [facility] Comment on above: Order Comment: 109-1 Performed By: #### L 100.0100, L500.4100 ####[facility] [address] [place], [address] Lipid Profileon 01-02-2024 Cholesterol [Mass/Vol] 115 mg/dL Normal 200 [facility] Comment on above: Order Comment: 109-1 Result Comment: <200 mg/dL Desirable 200-240 mg/dL Borderline >240 mg/dL High Risk Performed By: #### L 100.0100, L500.4100 ####[facility] [address] [place], [address] Cholesterol in HDL [Mass/Vol] 24 mg/dL Low [facility] Comment on above: Order Comment: 109-1 Result Comment: The drugs N-Acetylcysteine and Metamizole may falselydepress this assay. Reference Range HDL <40 mg/dL Low HDL Cholesterol HDL >or= 60 mg/dL High HDL Cholesterol Performed By: #### L 100.0100, L500.4100 ####[facility] [address] [place], [address] Cholesterol in LDL [Mass/Vol] 37 mg/dL Normal 0-130 [facility] Comment on above: Order Comment: 109-1 Performed By: #### L 100.0100, L500.4100 ####[facility] [address] [place], [address] Cholesterol in VLDL [Mass/Vol] 54 mg/dL High 5-40 [facility] Comment on above: Order Comment: 109-1 Performed By: #### L 100.0100, L500.4100 ####[facility] [address] [place], [address] Triglyceride [Mass/Vol] 271 mg/dL High [facility] Comment on above: Order Comment: 109- Result Comment: The drugs N-Acetylcysteine and Metamizole may falselydepress this assay.Serum Triglycerides Reference Interval Normal <150 mg/dL Borderline high 150 - 199 mg/dL High 200 - 499 mg/dL Very High > or = 500 mg/dL Performed By: #### L 100.0100, L500.4100 ####[facility] [address] [place], [address] CBC W/Diff, Automatedon -2 Absolute Lymph 2.51 X10 3/uL Normal 0.83-4.51 [facility] Comment on above: Order Comment: 109.1 Performed By: #### L 100.0100 ####[facility] [address] [place], [address] Absolute Neut 4.1 X10 3/uL Normal 2.0-7.7 [facility] Comment on above: Order Comment: 109.1 Performed By: #### L 100.0100 ####[facility] [address] [place], [address] Basophils/100 WBC (Bld) 0.5 % Normal 0-1 [facility] Comment on above: Order Comment: 109.1 Performed By: #### L 100.0100 ####[facility] [address] [place], [address] Eosinophils/100 WBC (Bld) 0.8 % Normal 0-5 [facility] Comment on above: Order Comment: 109.1 Performed By: #### L 100.0100 ####[facility] [address] [place], [address] Erythrocyte distribution width (RBC) [Ratio] 13.1 % Normal 11.6-14.6 [facility] Comment on above: Order Comment: 109.1 Performed By: #### L 100.0100 ####[facility] [address] [place], [address] Hematocrit (Bld) [Volume fraction] 40.5 % Normal 40-54 [facility] Comment on above: Order Comment: 109.1 Performed By: #### L 100.0100 ####[facility] [address] [place], [address] Hemoglobin (Bld) [Mass/Vol] 12.9 g/dL Low 13.0-16.5 [facility] Comment on above: Order Comment: 109.1 Performed By: #### L 100.0100 ####[facility] [address] [place], [address] IG% 0.400 Normal 0.0-0.9 [facility] Comment on above: Order Comment: 109.1 Result Comment: IG% - Immature Granulocytes (promyelocytes, myelocytes andmetamyelocytes) > 1% indicates that a LEFT SHIFT is Present. Performed By: #### L 100.0100 ####[facility] [address] [place], [address] Lymphocytes/100 WBC (Bld) 33.5 % Normal 19-41 [facility] Comment on above: Order Comment: 109.1 Performed By: #### L 100.0100 ####[facility] [address] [place], [address] MCH (RBC) [Entitic mass] 29.3 pg Normal 27.0-32.0 [facility] Comment on above: Order Comment: 109.1 Performed By: #### L 100.0100 ####[facility] [address] [place], [address] MCHC (RBC) [Mass/Vol] 31.9 g/dL Low 32-36 [facility] Comment on above: Order Comment: 109.1 Performed By: #### L 100.0100 ####[facility] [address] [place], [address] MCV (RBC) [Entitic vol] 92.0 fL Normal 80-94 [facility] Comment on above: Order Comment: 109.1 Performed By: #### L 100.0100 ####[facility] [address] [place], [address] Monocytes/100 WBC (Bld) 10.7 % High 0-10 [facility] Comment on above: Order Comment: 109.1 Performed By: #### L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 [address] MCHC (RBC) [Mass/Vol] 32.1 g/dL Normal 32-36 [facility] Comment on above: Order Comment: 109-1 Performed By: #### L 100.0100 ####[facility] [address] [place], [address] MCV (RBC) [Entitic vol] 93.0 fL Normal 80-94 [facility] Comment on above: Order Comment: 109-1 Performed By: #### L 100.0100 ####[facility] [address] [place], [address] Monocytes/100 WBC (Bld) 5.8 % Normal 0-10 [facility] Comment on above: Order Comment: 109-1 Performed By: #### L 100.0100 ####[facility] [address] [place], [address] Neutrophils/100 WBC (Bld) 69.8 % Normal 47-70 [facility] Comment on above: Order Comment: 109-1 Performed By: #### L 100.0100 ####[facility] [address] [place], [address] Nucleated RBC (Bld) [#/Vol] 0 10*3/uL Normal 0-5 [facility] Comment on above: Order Comment: 109-1 Performed By: #### L 100.0100 ####[facility] [address] [place], [address] Platelet mean volume (Bld) [Entitic vol] 11.2 fL Normal 6.2-12.0 [facility] Comment on above: Order Comment: 109-1 Performed By: #### L 100.0100 ####[facility] [address] [place], [address] Platelets (Bld) [#/Vol] 207 10*3/uL Normal 150-450 [facility] Comment on above: Order Comment: 109-1 Performed By: #### L 100.0100 ####[facility] [address] [place], [address] RBC (Bld) [#/Vol] 4.69 10*6/uL Normal 4.6-6.2 [facility] Comment on above: Order Comment: 109-1 Performed By: #### L 100.0100 ####[facility] [address] [place], [address] RDW SD 43.4 fl Normal 35.1-43.9 [facility] Comment on above: Order Comment: 109-1 Performed By: #### L 100.0100 ####[facility] [address] [place], [address] WBC (Bld) [#/Vol] 11.7 10*3/uL High 4.4-11.0 [facility] Comment on above: Order Comment: 109-1 Performed By: #### L 100.0100 ####[facility] [address] [place], [address] CBC W/Diff, Automatedon 07-0 8-2024 Absolute Lymph 2.13 X10 3/uL Normal 0.83-4.51 [facility] Comment on above: Order Comment: 109-1 Performed By: #### L 100.0100 ####[facility] [address] [place], [address] Absolute Neut 4.7 X10 3/uL Normal 2.0-7.7 [facility] Comment on above: Order Comment: 109-1 Performed By: #### L 100.0100 ####[facility] [address] [place], [address] Basophils/100 WBC (Bld) 0.7 % Normal 0-1 [facility] Comment on above: Order Comment: 109-1 Performed By: #### L 100.0100 ####[facility] [address] [place], [address] Eosinophils/100 WBC (Bld) 0.4 % Normal 0-5 [facility] Comment on above: Order Comment: 109-1 Performed By: #### L 100.0100 ####[facility] [address] [place], [address] Erythrocyte distribution width (RBC) [Ratio] 13.1 % Normal 11.6-14.6 [facility] Comment on above: Order Comment: 109-1 Performed By: #### L 100.0100 ####[facility] [address] [place], [address] Hematocrit (Bld) [Volume fraction] 42.4 % Normal 40-54 [facility] Comment on above: Order Comment: 109-1 Performed By: #### L 100.0100 ####[facility] [address] [place], [address] Hemoglobin (Bld) [Mass/Vol] 13.9 g/dL Normal 13.0-16.5 [facility] Comment on above: Order Comment: 109-1 Performed By: #### L 100.0100 ####[facility] [address] [place], [address] IG% 0.400 Normal 0.0-0.9 [facility] Comment on above: Order Comment: 109-1 Result Comment: IG% - Immature Granulocytes (promyelocytes, myelocytes andmetamyelocytes) > 1% indicates that a LEFT SHIFT is Present. Performed By: #### L 100.0100 ####[facility] [address] [place], [address] Lymphocytes/100 WBC (Bld) 28.1 % Normal 19-41 [facility] Comment on above: Order Comment: 109-1 Performed By: #### L 100.0100 ####[facility] [address] [place], [address] MCH (RBC) [Entitic mass] 30.3 pg Normal 27.0-32.0 [facility] Comment on above: Order Comment: 109-1 Performed By: #### L 100.0100 ####[facility] [address] [place], [address] MCHC (RBC) [Mass/Vol] 32.8 g/dL Normal 32-36 [facility] Comment on above: Order Comment: 109-1 Performed By: #### L 100.0100 ####[facility] [address] [place], [address] MCV (RBC) [Entitic vol] 92.4 fL Normal 80-94 [facility] Comment on above: Order Comment: 109-1 Performed By: #### L 100.0100 ####[facility] [address] [place], [address] Monocytes/100 WBC (Bld) 8.8 % Normal 0-10 [facility] Comment on above: Order Comment: 109-1 Performed By: #### L 100.0100 ####[facility] [address] [place], [address] Neutrophils/100 WBC (Bld) 61.6 % Normal 47-70 [facility] Comment on above: Order Comment: 109-1 Performed By: #### L 100.0100 ####[facility] [address] [place], [address] Nucleated RBC (Bld) [#/Vol] 0 10*3/uL Normal 0-5 [facility] Comment on above: Order Comment: 109-1 Performed By: #### L 100.0100 ####[facility] [address] [place], [address] Platelet mean volume (Bld) [Entitic vol] 10.9 fL Normal 6.2-12.0 [facility] Comment on above: Order Comment: 109-1 Performed By: #### L 100.0100 ####[facility] [address] [place], [address] Platelets (Bld) [#/Vol] 173 10*3/uL Normal 150-450 [facility] Comment on above: Order Comment: 109-1 Performed By: #### L 100.0100 ####[facility] [address] [place], [address] RBC (Bld) [#/Vol] 4.59 10*6/uL Low 4.6-6.2 [facility] Comment on above: Order Comment: 109-1 Performed By: #### L 100.0100 ####[facility] [address] [place], [address] RDW SD 44.0 fl High 35.1-43.9 [facility] Comment on above: Order Comment: 109-1 Performed By: #### L 100.0100 ####[facility] [address] [place], [address] WBC (Bld) [#/Vol] 7.6 10*3/uL Normal 4.4-11.0 [facility] Comment on above: Order Comment: 109-1 Performed By: #### L 100.0100 ####[facility] [address] [place], [address] CBC W/Diff, Automatedon 07-0 1-2023 Absolute Lymph 3.06 X10 3/uL Normal 0.83-4.51 [facility] Comment on above: Order Comment: 109-1 Performed By: #### L 100.0100 ####[facility] [address] [place], [address] Absolute Neut 5.1 X10 3/uL Normal 2.0-7.7 [facility] Comment on above: Order Comment: 109-1 Performed By: #### L 100.0100 ####[facility] [address] [place], [address] Basophils/100 WBC (Bld) 0.5 % Normal 0-1 [facility] Comment on above: Order Comment: 109-1 Performed By: #### L 100.0100 ####[facility] [address] [place], [address] Eosinophils/100 WBC (Bld) 0.3 % Normal 0-5 [facility] Comment on above: Order Comment: 109-1 Performed By: #### L 100.0100 ####[facility] [address] [place], [address] Erythrocyte distribution width (RBC) [Ratio] 13.2 % Normal 11.6-14.6 [facility] Comment on above: Order Comment: 109-1 Performed By: #### L 100.0100 ####[facility] [address] [place], [address] Hematocrit (Bld) [Volume fraction] 43.8 % Normal 40-54 [facility] Comment on above: Order Comment: 109-1 Performed By: #### L 100.0100 ####[facility] [address] [place], [address] Hemoglobin (Bld) [Mass/Vol] 13.9 g/dL Normal 13.0-16.5 [facility] Comment on above: Order Comment: 109-1 Performed By: #### L 100.0100 ####[facility] [address] [place], [address] IG% 0.400 Normal 0.0-0.9 [facility] Comment on above: Order Comment: 109-1 Result Comment: IG% - Immature Granulocytes (promyelocytes, myelocytes andmetamyelocytes) > 1% indicates that a LEFT SHIFT is Present. Performed By: #### L 100.0100 ####[facility] [address] [place], [address] Lymphocytes/100 WBC (Bld) 32.4 % Normal 19-41 [facility] Comment on above: Order Comment: 109-1 Performed By: #### L 100.0100 ####[facility] [address] [place], [address] MCH (RBC) [Entitic mass] 29.3 pg Normal 27.0-32.0 [facility] Comment on above: Order Comment: 109-1 Performed By: #### L 100.0100 ####[facility] [address] [place], [address] MCHC (RBC) [Mass/Vol] 31.7 g/dL Low 32-36 [facility] Comment on above: Order Comment: 109-1 Performed By: #### L 100.0100 ####[facility] [address] [place], [address] MCV (RBC) [Entitic vol] 92.4 fL Normal 80-94 [facility] Comment on above: Order Comment: 109-1 Performed By: #### L 100.0100 ####[facility] [address] [place], [address] Monocytes/100 WBC (Bld) 11.9 % High 0-10 [facility] Comment on above: Order Comment: 109-1 Performed By: #### L 100.0100 ####[facility] [address] [place], [address] Neutrophils/100 WBC (Bld) 54.5 % Normal 47-70 [facility] Comment on above: Order Comment: 109-1 Performed By: #### L 100.0100 ####[facility] [address] [place], [address] Nucleated RBC (Bld) [#/Vol] 0 10*3/uL Normal 0-5 [facility] Comment on above: Order Comment: 109-1 Performed By: #### L 100.0100 ####[facility] [address] [place], [address] Platelet mean volume (Bld) [Entitic vol] 11.7 fL Normal 6.2-12.0 [facility] Comment on above: Order Comment: 109-1 Performed By: #### L 100.0100 ####[facility] [address] [place], [address] Platelets (Bld) [#/Vol] 203 10*3/uL Normal 150-450 [facility] Comment on above: Order Comment: 109-1 Performed By: #### L 100.0100 ####[facility] [address] [place], [address] RBC (Bld) [#/Vol] 4.74 10*6/uL Normal 4.6-6.2 [facility] Comment on above: Order Comment: 109-1 Performed By: #### L 100.0100 ####[facility] [address] [place], [address] RDW SD 44.7 fl High 35.1-43.9 [facility] Comment on above: Order Comment: 109-1 Performed By: #### L 100.0100 ####[facility] [address] [place], [address] WBC (Bld) [#/Vol] 9.4 10*3/uL Normal 4.4-11.0 [facility] Comment on above: Order Comment: 109-1 Performed By: #### L 100.0100 ####[facility] [address] [place], [address] CBC W/Diff, Automatedon 06-2 -2023 Absolute Lymph 2.08 X10 3/uL Normal 0.83-4.51 [facility] Comment on above: Order Comment: 109-1 Performed By: #### L 100.0100 ####[facility] [address] [place], [address] Absolute Neut 4.3 X10 3/uL Normal 2.0-7.7 [facility] Comment on above: Order Comment: 109-1 Performed By: #### L 100.0100 ####[facility] [address] [place], [address] Basophils/100 WBC (Bld) 0.6 % Normal 0-1 [facility] Comment on above: Order Comment: 109-1 Performed By: #### L 100.0100 ####[facility] [address] [place], [address] Eosinophils/100 WBC (Bld) 0.6 % Normal 0-5 [facility] Comment on above: Order Comment: 109-1 Performed By: #### L 100.0100 ####[facility] [address] [place], [address] Erythrocyte distribution width (RBC) [Ratio] 12.9 % Normal 11.6-14.6 [facility] Comment on above: Order Comment: 109-1 Performed By: #### L 100.0100 ####[facility] [address] [place], [address] Hematocrit (Bld) [Volume fraction] 39.1 % Low 40-54 [facility] Comment on above: Order Comment: 109-1 Performed By: #### L 100.0100 ####[facility] [address] [place], [address] Hemoglobin (Bld) [Mass/Vol] 12.6 g/dL Low 13.0-16.5 [facility] Comment on above: Order Comment: 109-1 Performed By: #### L 100.0100 ####[facility] [address] [place], [address] IG% 0.400 Normal 0.0-0.9 [facility] Comment on above: Order Comment: 109-1 Result Comment: IG% - Immature Granulocytes (promyelocytes, myelocytes andmetamyelocytes) > 1% indicates that a LEFT SHIFT is Present. Performed By: #### L 100.0100 ####[facility] [address] [place], [address] Lymphocytes/100 WBC (Bld) 29.1 % Normal 19-41 [facility] Comment on above: Order Comment: 109-1 Performed By: #### L 100.0100 ####[facility] [address] [place], [address] MCH (RBC) [Entitic mass] 29.7 pg Normal 27.0-32.0 [facility] Comment on above: Order Comment: 109-1 Performed By: #### L 100.0100 ####[facility] [address] [place], [address] MCHC (RBC) [Mass/Vol] 32.2 g/dL Normal 32-36 [facility] Comment on above: Order Comment: 109-1 Performed By: #### L 100.0100 ####[facility] [address] [place], [address] MCV (RBC) [Entitic vol] 92.2 fL Normal 80-94 [facility] Comment on above: Order Comment: 109-1 Performed By: #### L 100.0100 ####[facility] [address] [place], [address] Monocytes/100 WBC (Bld) 9.6 % Normal 0-10 [facility] Comment on above: Order Comment: 109-1 Performed By: #### L 100.0100 ####[facility] [address] [place], [address] Neutrophils/100 WBC (Bld) 59.7 % Normal 47-70 [facility] Comment on above: Order Comment: 109-1 Performed By: #### L 100.0100 ####[facility] [address] [place], [address] Nucleated RBC (Bld) [#/Vol] 0 10*3/uL Normal 0-5 [facility] Comment on above: Order Comment: 109-1 Performed By: #### L 100.0100 ####[facility] [address] [place], [address] Platelet mean volume (Bld) [Entitic vol] 11.3 fL Normal 6.2-12.0 [facility] Comment on above: Order Comment: 109-1 Performed By: #### L 100.0100 ####[facility] [address] [place], [address] Platelets (Bld) [#/Vol] 200 10*3/uL Normal 150-450 [facility] Comment on above: Order Comment: 109-1 Performed By: #### L 100.0100 ####[facility] [address] [place], [address] RBC (Bld) [#/Vol] 4.24 10*6/uL Low 4.6-6.2 [facility] Comment on above: Order Comment: 109-1 Performed By: #### L 100.0100 ####[facility] [address] [place], [address] RDW SD 43.5 fl Normal 35.1-43.9 [facility] Comment on above: Order Comment: 109-1 Performed By: #### L 100.0100 ####[facility] [address] [place], [address] WBC (Bld) [#/Vol] 7.2 10*3/uL Normal 4.4-11.0 [facility] Comment on above: Order Comment: 109-1 Performed By: #### L 100.0100 ####[facility] [address] [place], [address] CBC W/Diff, Automatedon 09-29 Absolute Lymph 2.37 X10 3/uL Normal 0.83-4.51 [facility] Comment on above: Order Comment: 109-1 Performed By: #### L 100.0100 ####[facility] [address] [place], [address] Absolute Neut 5.6 X10 3/uL Normal 2.0-7.7 [facility] Comment on above: Order Comment: 109-1 Performed By: #### L 100.0100 ####[facility] [address] [place], [address] Basophils/100 WBC (Bld) 0.3 % Normal 0-1 [facility] Comment on above: Order Comment: 109-1 Performed By: #### L 100.0100 ####[facility] [address] [place], [address] Eosinophils/100 WBC (Bld) 0.2 % Normal 0-5 [facility] Comment on above: Order Comment: 109-1 Performed By: #### L 100.0100 ####[facility] [address] [place], [address] Erythrocyte distribution width (RBC) [Ratio] 12.6 % Normal 11.6-14.6 [facility] Comment on above: Order Comment: 109-1 Performed By: #### L 100.0100 ####[facility] [address] [place], [address] Hematocrit (Bld) [Volume fraction] 39.6 % Low 40-54 [facility] Comment on above: Order Comment: 109-1 Performed By: #### L 100.0100 ####[facility] [address] [place], [address] Hemoglobin (Bld) [Mass/Vol] 12.8 g/dL Low 13.0-16.5 [facility] Comment on above: Order Comment: 109-1 Performed By: #### L 100.0100 ####[facility] [address] [place], [address] IG% 0.500 Normal 0.0-0.9 [facility] Comment on above: Order Comment: 109-1 Result Comment: IG% - Immature Granulocytes (promyelocytes, myelocytes andmetamyelocytes) > 1% indicates that a LEFT SHIFT is Present. Performed By: #### L 100.0100 ####[facility] [address] [place], [address] Lymphocytes/100 WBC (Bld) 27.3 % Normal 19-41 [facility] Comment on above: Order Comment: 109-1 Performed By: #### L 100.0100 ####[facility] [address] [place], [address] MCH (RBC) [Entitic mass] 29.7 pg Normal 27.0-32.0 [facility] Comment on above: Order Comment: 109-1 Performed By: #### L 100.0100 ####[facility] [address] [place], [address] MCHC (RBC) [Mass/Vol] 32.3 g/dL Normal 32-36 [facility] Comment on above: Order Comment: 109-1 Performed By: #### L 100.0100 ####[facility] [address] [place], [address] MCV (RBC) [Entitic vol] 91.9 fL Normal 80-94 [facility] Comment on above: Order Comment: 109-1 Performed By: #### L 100.0100 ####[facility] [address] [place], [address] Monocytes/100 WBC (Bld) 6.8 % Normal 0-10 [facility] Comment on above: Order Comment: 109-1 Performed By: #### L 100.0100 ####[facility] [address] [place], [address] Neutrophils/100 WBC (Bld) 64.9 % Normal 47-70 [facility] Comment on above: Order Comment: 109-1 Performed By: #### L 100.0100 ####[facility] [address] [place], [address] Nucleated RBC (Bld) [#/Vol] 0 10*3/uL Normal 0-5 [facility] Comment on above: Order Comment: 109-1 Performed By: #### L 100.0100 ####[facility] [address] [place], [address] Platelet mean volume (Bld) [Entitic vol] 10.7 fL Normal 6.2-12.0 [facility] Comment on above: Order Comment: 109-1 Performed By: #### L 100.0100 ####[facility] [address] [place], [address] Platelets (Bld) [#/Vol] 209 10*3/uL Normal 150-450 [facility] Comment on above: Order Comment: 109-1 Performed By: #### L 100.0100 ####[facility] [address] [place], [address] RBC (Bld) [#/Vol] 4.31 10*6/uL Low 4.6-6.2 [facility] Comment on above: Order Comment: 109-1 Performed By: #### L 100.0100 ####[facility] [address] [place], [address] RDW SD 42.5 fl Normal 35.1-43.9 [facility] Comment on above: Order Comment: 109-1 Performed By: #### L 100.0100 ####[facility] [address] [place], [address] WBC (Bld) [#/Vol] 8.7 10*3/uL Normal 4.4-11.0 [facility] Comment on above: Order Comment: 109-1 Performed By: #### L 100.0100 ####[facility] [address] [place], [address] CBC W Auto Differential pane l (Bld)on 10-02-2023 Basophils (Bld) [#/Vol] 0.0 10*3/uL 0.0 - 0.2 10*3/uL [facility] [employer] Basophils/100 WBC (Bld) 0.3 % 0.0 - 2.0 % [facility] Eosinophils (Bld) [#/Vol] 0.0 10*3/uL 0.0 - 0.5 10*3/uL [employer] [employer] Eosinophils/100 WBC (Bld) 0.0 % 0.0 - 6.0 % [employer] Erythrocyte distribution width (RBC) [Ratio] 13.0 % 11.5 - 15.0 % [employer] Hematocrit (Bld) [Volume fraction] 37.8 % Low 40.0 - 52.0 % [employer] Hemoglobin (Bld) [Mass/Vol] 13.0 g/dL 13.0 - 18.0 g/dL [facility] [employer] Immature granulocytes (Bld) [#/Vol] 0.1 10*3/uL High NINF - 0.1 10*3/uL [facility] Immature granulocytes/100 WBC (Bld) 0.5 % 0.0 - 2.0 % [facility] Interpretation and review of laboratory results Abnormal [facility] Lymphocytes (Bld) [#/Vol] 0.9 10*3/uL Low 1.0 - 4.3 10*3/uL [facility] Lymphocytes/100 WBC (Bld) 8.4 % Low 15.0 - 45.0 % [facility] MCH (RBC) [Entitic mass] 30.3 pg 26.0 - 34.0 pg [facility] MCHC (RBC) [Mass/Vol] 34.4 % 30.5 - 36.0 % [facility] MCV (RBC) [Entitic vol] 88.1 fL 77.0 - 99.0 fL [facility] [employer] Monocytes (Bld) [#/Vol] 0.9 10*3/uL 0.0 - 0.9 10*3/uL [facility] Monocytes/100 WBC (Bld) 8.2 % 5.0 - 13.0 % [facility] Neutrophils (Bld) [#/Vol] 8.9 10*3/uL High 1.8 - 7.5 10*3/uL [facility] Neutrophils/100 WBC (Bld) 82.6 % High 38.0 - 82.0 % [facility] Nucleated RBC/100 WBC (Bld) [Ratio] 0.0 % [facility] Platelet mean volume (Bld) [Entitic vol] 10.7 fL 9.0 - 12.7 fL [facility] [employer] Platelets (Bld) [#/Vol] 148 10*3/uL 140 - 440 10*3/uL [facility] RBC (Bld) [#/Vol] 4.29 10*6/uL Low 4.40 - 5.9 0 10*6/uL [facility] WBC (Bld) [#/Vol] 10.7 10*3/uL 3.6 - 10.7 10*3/uL [facility] CBC WITH AUTO DIFFERENTIALon 10-02-2023 Basophils (Bld) [#/Vol] 0.0 10*3/uL Normal 0.0-0.2 [facility] Comment on above: Performed By: #### L [id number] #### Building Appraiser: CYNDI LILLY ([phone]) [facility] ([facility]) [address] Basophils/100 WBC (Bld) 0.3 % Normal 0.0-2.0 [facility] Comment on above: Performed By: #### L [id number] #### Building Appraiser: CYNDI LILLY ([phone]) [facility] [place] [facility] [address] Eosinophils (Bld) [#/Vol] 0.0 10*3/uL Normal 0.0-0.5 [facility] Comment on above: Performed By: #### L [id number] #### Building Appraiser: CYNDI LILLY ([phone]) [facility] [place] [facility] [address] Eosinophils/100 WBC (Bld) 0.0 % Normal 0.0-6.0 [facility] Comment on above: Performed By: #### L [id number] #### Building Appraiser: CYNDI LILLY ([phone]) [facility] [place] [facility] [address] Erythrocyte distribution width (RBC) [Ratio] 13.0 % Normal 11.5-15.0 [facility] Comment on above: Performed By: #### L [id number] #### Building Appraiser: CYNDI LILLY ([phone]) [facility] [place] ([facility] [address] Hematocrit (Bld) [Volume fraction] 37.8 % Low 40.0-52.0 [facility] Comment on above: Performed By: #### L [id number] #### Building Appraiser: CYNDI LILLY ([phone]) [facility] [place] [facility] [address] Hemoglobin (Bld) [Mass/Vol] 13.0 g/dL Normal 13.0-18.0 [facility] Comment on above: Performed By: #### L [id number] #### Building Appraiser: CYNDI LILLY ([phone]) [facility] ([facility]) [address] IMMATURE GRANS % 0.5 % Normal 0.0-2.0 [facility] Comment on above: Performed By: #### L [id number] #### Building Appraiser: CYNDI LILLY ([phone]) [facility] [address] IMMATURE GRANS ABSOLUTE 0.1 10*3/uL High <0.1 [facility] Comment on above: Performed By: #### L [id number] #### Building Appraiser: CYNDI LILLY ([phone]) [facility] ([facility] [address] Lymphocytes (Bld) [#/Vol] 0.9 10*3/uL Low 1.0-4.3 [facility] Comment on above: Performed By: #### L [id number] #### Building Appraiser: CYNDI LILLY ([phone]) [facility] [address] Lymphocytes/100 WBC (Bld) 8.4 % Low 15.0-45.0 [facility] Comment on above: Performed By: #### L [id number] #### Building Appraiser: CYNDI LILLY ([phone]) [facility] [address] MCH (RBC) [Entitic mass] 30.3 pg Normal 26.0-34.0 [facility] Comment on above: Performed By: #### L [id number] #### Building Appraiser: CYNDI LILLY ([phone]) [facility] [address] MCHC 34.4 % Normal 30.5-36.0 [facility] Comment on above: Performed By: #### L [id number] #### Building Appraiser: CYNDI LILLY ([phone]) [facility] ([facility]) [address] MCV (RBC) [Entitic vol] 88.1 fL Normal 77.0-99.0 [facility] Comment on above: Performed By: #### L [id number] #### Building Appraiser: CYNDI DRIVERRADHA ([phone]) [facility] ([facility]) [address] Monocytes (Bld) [#/Vol] 0.9 10*3/uL Normal 0.0-0.9 [facility] Comment on above: Performed By: #### L [id number] #### Building Appraiser: CYNDI DRIVERRADHA ([phone]) [facility] ([facility]) [address] [place] [address] [place] Monocytes/100 WBC (Bld) 8.2 % Normal 5.0-13.0 [facility] Comment on above: Performed By: #### L [id number] #### Building Appraiser: CYNDI LILLY ([phone]) [facility] ([facility]) [address] NEUTROPHILS ABSOLUTE 8.9 10*3/uL High 1.8-7.5 [facility] Comment on above: Performed By: #### L [id number] #### Building Appraiser: CYNDI DRIVERRADHA ([phone]) [facility] ([facility]) [address] [place] [address] [place] Neutrophils/100 WBC (Bld) 82.6 % High 38.0-82.0 [facility] Comment on above: Performed By: #### L [id number] #### Building Appraiser: CYNDI LILLY ([phone]) [facility] ([facility]) [address] [place] [address] [place] NRBC 0.0 /100 WBCs Normal 0.0-2.0 [facility] Comment on above: Performed By: #### L [id number] #### Building Appraiser: CYNDI LILLY ([phone]) [facility] [address] Platelet mean volume (Bld) [Entitic vol] 10.7 fL Normal 9.0-12.7 [facility] Comment on above: Performed By: #### L [id number] #### Building Appraiser: CYNDI LILLY ([phone]) [facility] ([facility] [address] Platelets (Bld) [#/Vol] 148 10*3/uL Normal 140-440 [facility] Comment on above: Performed By: #### L [id number] #### Building Appraiser: CYNDI LILLY ([phone]) [facility] ([facility]) [address] RBC (Bld) [#/Vol] 4.29 10*6/uL Low 4.40-5.90 [facility] Comment on above: Performed By: #### L [id number] #### Building Appraiser: CYNDI LILLY ([phone]) [facility] [address] WBC (Bld) [#/Vol] 10.7 10*3/uL Normal 3.6-10.7 [facility] Comment on above: Performed By: #### L [id number] #### Building Appraiser: CYNDI LILLY ([phone]) [facility] ([facility]) [address] COMPREHENSIVE METABOLIC PANE Reji 10-02-2023 Albumin [Mass/Vol] 3.7 g/dL Normal 3.5-5.0 [facility] Comment on above: Performed By: #### L [id number], [id number] ####Building Appraiser: CYNDI LILLY ([phone])[facility] ([facility])[address] ALP [Catalytic activity/Vol] 78 U/L Normal 38-126 [facility] Comment on above: Performed By: #### L [id number], [id number] ####Building Appraiser: CYNDI LILLY ([phone])[facility] ([facility])[address] ALT [Catalytic activity/Vol] 21 U/L Normal 0-49 [facility] Comment on above: Performed By: #### L [id number], [id number] ####Building Appraiser: CYNDI LILLY ([phone])[facility] [place] ([facility])[address] Anion gap [Moles/Vol] 10 mmol/L Normal 3-13 [facility] Comment on above: Performed By: #### Alban AB17, [id number] ####Building Appraiser: CYNDI LILLY ([phone])[facility] [place] ([facility])[address] AST [Catalytic activity/Vol] 29 U/L Normal 15-46 [facility] Comment on above: Performed By: #### Alban AB17, [id number] ####Building Appraiser: CYNDI LILLY ([phone])[facility] [place] ([facility])[address] Bilirubin [Mass/Vol] 1.1 mg/dL Normal 0.2-1.3 [facility] Comment on above: Performed By: #### L AB17, [id number] ####Building Appraiser: CYNDI LILLY ([phone])[facility] [place] ([facility])[address] [place] [address] [place] Calcium [Mass/Vol] 7.8 mg/dL Low 8.4-10.4 [facility] Comment on above: Performed By: #### L AB17, [id number] ####Building Appraiser: CYNDI LILLY ([phone])[facility] [place] ([facility])[address] Chloride [Moles/Vol] 102 mmol/L Normal 98-107 [facility] Comment on above: Performed By: #### Alban AB17, [id number] ####Building Appraiser: CYNDI LILLY ([phone])[facility] (SB[facility])[address] CO2 [Moles/Vol] 23 mmol/L Normal 22-30 [facility] Comment on above: Performed By: #### Alban AB17, [id number] ####Building Appraiser: CYNDI LILLY ([phone])[facility] Creatinine [Mass/Vol] 0.58 mg/dL Low 0.66-1.25 [facility] Comment on above: Performed By: #### Alban SMITH, [id number] ####Building Appraiser: CYNDI LILLY ([phone])[facility])[address] GLOMERULAR FILTRATION RATE ML/MIN/1.73 SQ M.PREDICTED >90.0 Normal >60.0 [facility] Comment on above: Result Comment: Calc ulation based on the Chronic Kidney Disease Epidemiology Collaboration (CKD-EPI) equation refit without adjustment for race Performed By: #### Alban AB17, [id number] ####Building Appraiser: CYNDI LILLY ([phone])[facility] ([facility])[address] Glucose [Mass/Vol] 111 mg/dL High 70-100 [facility] Comment on above: Performed By: #### L AB17, [id number] ####Building Appraiser: CYNDI LILLY ([phone])[facility])[address] Potassium [Moles/Vol] 4.0 mmol/L Normal 3.5-5.1 [facility] Comment on above: Performed By: #### L AB17, [id number] ####Building Appraiser: CYNDI LILLY ([phone])[facility] ([facility])[address] [place] [address] Protein [Mass/Vol] 6.5 g/dL Normal 6.3-8.2 [facility] Comment on above: Performed By: #### L AB17, [id number] ####Building Appraiser: CYNDI LILLY ([phone])[facility] ([facility])[address] Sodium [Moles/Vol] 135 mmol/L Normal 135-145 [facility] Comment on above: Performed By: #### L AB17, [id number] ####Building Appraiser: CYNDI LILLY ([phone])[facility] (HLAB)[address] [place] [address] Urea nitrogen [Mass/Vol] 18 mg/dL Normal 9-20 [facility] Comment on above: Performed By: #### L AB17, [id number] ####Building Appraiser: CYNDI LILLY ([phone])[facility] ([facility])[address] [place] [address] CT HEAD WO IV CONTRASTon CT HEAD WO IV CONTRAST Patient Name: [facility] YU [facility] 1955 [id number] Exam Date/Time: 10/02/2023 11:03 Procedure: CT HEAD WO IV CONTRAST Ordering Provider: TOLEDO AMY Reason For Exam: Neuro deficit, acute, stroke suspected EXAMINATION: CT HEAD WO IV CONTRAST HISTORY: Neuro deficit, acute, stroke suspected - - - - - [id number] - - - - TECHNIQUE: CT head [...] Dictated on Electronically Signed By: Maria Eugenia Ruzi MD Electronically Signed Date/Time: 10/02/2023 11:09 AM [...] she has seen him for that day, night patrol inspector did not report any problems. EMS states [...] has no complaints at this time. Normal [facility] CT Head WO contraston [address] evidence of an acute intracranial abnormality. Report Dictated on Electronically Signed By: Maria Eugenia Ruiz MD Electronically Signed Date/Time: 10/02/2023 11:09 AM T [facility] Patient Name: KATHYA HOOPER : 1955 [facility] [id number] Exam Date/Time: 10/02/2023 11:03 Procedure: CT HEAD WO IV CONTRAST Ordering Provider: TOLEDO AMY Reason For Exam: Neuro deficit, acute, stroke suspected EXAMINATION: CT HEAD WO IV CONTRAST HISTORY: Neuro deficit, acute, stroke suspected - - - - - [id number] - - - - TECHNIQUE: CT head [...] 10/02/2023 Patient Name: KATHYA HOOPER : 1955 [id number] Exam Date/Time: 10/02/2023 11:03 Procedure: CT HEAD WO IV CONTRAST Ordering Provider: TOLEDO AMY Reason For Exam: Neuro deficit, acute, stroke suspected EXAMINATION: CT HEAD WO IV CONTRAST HISTORY: Neuro deficit, acute, stroke suspected - - - - - [id number] - - - - TECHNIQUE: CT head [...] Electronically Signed Date/Time: 10/02/2023 11:09 AM EDT [facility] Radiology Study observation (narrative) [facility] CT Head WO contrastOrdered B y: Maria Eugenia Ruiz on 10-02-2023 [facility] [employer] Work Phone: Comprehensive metabolic 1998 panelon 10-02-2023 Albumin [Mass/Vol] 3.7 g/dL 3.5 - 5.0 g/dL [facility] ALP [Catalytic activity/Vol] 78 U/L 38 - 126 U/L [facility] ALT [Catalytic activity/Vol] 21 U/L 0 - 49 U/L [facility] Anion gap [Moles/Vol] 10 mmol/L 3 - 13 mmol/L [facility] AST [Catalytic activity/Vol] 29 U/L 15 - 46 U/L [facility] Bilirubin [Mass/Vol] 1.1 mg/dL 0.2 - 1 .3 mg/dL [facility] Calcium [Mass/Vol] 7.8 mg/dL Low 8.4 - 10. 4 mg/dL [facility] Chloride [Moles/Vol] 102 mmol/L 98 - 10 7 mmol/L [facility] CO2 [Moles/Vol] 23 mmol/L 22 - 30 mmol/L [facility] Creatinine [Mass/Vol] 0.58 mg/dL Low 0.66 - 1.25 mg/dL [facility] GFR/1.73 sq M.predicted MDRD (S/P/Bld) [Vol rate/Area] - PINF [facility] Comment on above: Calculation based on the Chronic Kidney Disease Epidemiology Collaboration (CKD-EPI) equation refit without adjustment for race Glucose [Mass/Vol] 111 mg/dL High 70 - 100 mg/dL [facility] Interpretation and review of laboratory results Abnormal [facility] Potassium [Moles/Vol] 4.0 mmol/L 3.5 - 5.1 mmol/L [facility] Protein [Mass/Vol] 6.5 g/dL 6.3 - 8.2 g/dL [facility] Sodium [Moles/Vol] 135 mmol/L 135 - 145 mmol/L [facility] Urea nitrogen [Mass/Vol] 18 mg/dL 9 - 20 mg/dL [facility] ECG 12-LEADon 10-02-2023 ECG 12-LEAD IMPRESSION: Sinus tachycardia Left bundle branch block ST elevation secondary to IVCD Electronically Signed On 10-02-2023 12:40:15 EDT by Fei Farooq Normal [facility] ED Nursing Noteon 10-02-2023 ED Nursing Note [facility] at bedside at this time Mami Lantigua RN 10/02/23 1427 Normal [facility] ED Nursing Note This RN gave report to Marnie at [facility] at this time Mami Lantigua RN 10/02/23 1353 Normal [facility] ED Nursing Note This RN went to evaluate patient, was on 2L o2 and does not wear at baseline, plan is dc, this RN turned o2 off to trial patient, spo2 monitor on Mami Lantigua RN 10/02/23 1325 Normal [facility] ED Nursing Note Pt to ct via dory Alfaro RN 10/02/[address] [facility] ED Nursing Note Pt was brought in vi [facility] from [facility] for Left sided facial droop. Per EMS nurse is new and does not know patient very well but he is A&O x 2 at baseline. Per EMS the nurse states it was 20 mins ago. Contacted nurse that was caring for him and she states that was the first time she has seen him for that day, night patrol inspector did not report any problems. EMS states [...] the facility. Hx of schizophrenia. BS 131. [facility] ED Provider Noteon ED Provider Note [facility] ED eMERGENCY dEPARTMENT eNCOUnter Pt Name: [...] to the emergency department from a local group home facility where he is currently a resident. [...] History: Diagnosis Date TREVER (acute kidney injury) ([facility]) ([facility]) Alcohol abuse 07/08/2018 Anxiety C1 spinal cord injury ([facility]) ([facility]) Depression Fall 06/2018 Schizophrenia ([facility]) SURGICALHISTORY Past Surgical History: Procedure Laterality Date [...] EmergencyPhysician): Interpret (more content not included)... Normal [facility] ED Provider Note Emergency Department Encounter [facility] ED Patient: Kathya Hooper : 1955 [...] [employer] Fei Farooq MD 10/02/[address] [facility] Laboratory - Chemistry and C hemistry - challengeon 10-02-2023 Troponin I.cardiac [Mass/Vol] ng/mL NINF - 0.034 ng/mL [facility] Laboratory - Coagulationon 0 10-02-2023 aPTT Coag (PPP) [Time] 29.6 s 20.0 - 30.5 s [facility] INR Coag (PPP) [Relative time] 1.1 {INR} 0.9 - 1.1 [facility] Comment on above: Recommended Anticoag ulant Therapy: [...] [Time] 11.6 s 9.0 - 12.0 s [facility] No Panel Informationon 10-01 Heart Rate 103 bpm [facility] P Viola 48 degrees [facility] [place] Interval 172 ms [facility] QRS Viola -38 degrees [facility] QRSD Interval [address] [facility] Interval 405 ms [facility] QTC Interval 532 ms [facility] T Wave Viola 109 degrees [facility] Sinus tachycardia Left bundle branch block ST elevation secondary to IVCD Electronically Signed On 10-02-2023 12:40:15 EDT by Fei Farooq CV Fei Lopez MD - 10/02/2023 IMPRESSION: Sinus tachycardia Left bundle branch block ST elevation secondary to IVCD Electronically Signed On 10-02-2023 12:40:15 EDT by Fei Farooq [facility] Interpretation and review of laboratory results Normal [facility] PROTIME AND APTTon aPTT Coag (Bld) [Time] 29.6 s Normal 20.0-30.5 [facility] Comment on above: Performed By: #### L [id number] ####Building Appraiser: CYNDI LILLY ([phone])[facility] INR Coag (PPP) [Relative time] 1.1 {INR} Normal 0.9-1.1 [facility] Comment on above: Result Comment: Yefri mmended [...] prevent Myocardial Infarction Performed By: #### L [id number] ####Building Appraiser: CYNDI LILLY ([phone])[facility]ITAL[facility] ([facility])[address] [place] [address] PT Coag (PPP) [Time] 11.6 s Normal 9.0-12.0 [facility] Comment on above: Performed By: #### L [id number] ####Building Appraiser: CYNDI LILLY ([phone])[facility]ITAL[facility]Jonn ([facility] [place] [address] TROPONIN, WITH SERIAL REFLEX on 10-02-2023 Troponin I.cardiac [Mass/Vol] ng/mL Normal <0.034 [facility] Comment on above: Result Comment: SHARON Stevens COMMENTS: Patients with high levels of Biotin oral intake (ie >5 mg/day) may have falsely decreased Troponin levels. Performed By: #### L AB17, [id number] ####Building Appraiser: CYNDI LILLY ([phone])[facility]ITAL[facility]Jonn ([facility])[address] [place] [address] Troponin I.cardiac [Mass/Vol ]on 10-02-2023 Interpretation and review of laboratory results Normal [facility] Patients with high levels of Biotin oral intake (ie >5 mg/day) may have falsely decreased Troponin levels. [facility] XR Chest Single viewon 10-01 No acute cardiopulmonary disease. Report Dictated on Electronically Signed By: Maria Eugenia Ruiz MD Electronically Signed Date/Time: 10/02/2023 11:06 AM EDT [facility] Patient Name: KATHYA HOOPER : 1955 [...] spine and shoulders. No acute osseous findings. [facility] Maria Eugenia Ruiz MD - 10/02/2023 [...] Electronically Signed Date/Time: 10/02/2023 11:06 AM EDT [facility] Radiology Study observation (narrative) [facility] Absolute lymphocyte countOrd ered By: Renard Burgos on 08-07-2023 Lymphocytes Auto (Unsp spec) [#/Vol] 2.23 10*3/uL 0.83-4.51 [facility] Automated lymphocyte count a s percentage of total leukocytesOrdered By: Renard Burgos on 08-07-2023 Lymphocytes/100 WBC Auto (Unsp spec) 23.9 % 19-41 [facility] Basophil percentageOrdered B y: Renard Burgos on 08-07-2023 Basophils/100 WBC (Bld) 0.4 % 0-1 [facility] Eosinophils/100 WBC (Bld) 0.4 % 0-5 [facility] Hemoglobin (Bld) [Mass/Vol] 13.9 g/dL 13.0-16.5 [facility] Monocytes/100 WBC (Bld) 8.0 % 0-10 [facility] Neutrophils (Bld) [#/Vol] 6.2 10*3/uL 2.0-7.7 [facility] Neutrophils/100 WBC (Bld) 66.9 % 47-70 [facility] WBC (Bld) [#/Vol] 9.3 10*3/uL 4.4-11.0 [facility] Determination of erythrocyte mean corpuscular volume (MCV)Ordered By: Renard Burgos on 08-07-2023 MCV (RBC) [Entitic vol] 90.0 fL 80-94 [facility] Erythrocyte distribution wid th ratioOrdered By: Renard Burgos on 08-07-2023 Erythrocyte distribution width (RBC) [Ratio] 13.0 % 11.6-14.6 [facility] Erythrocyte distribution wid th standard deviationOrdered By: Renard Burgos on 08-07-2023 Erythrocyte distribution width (RBC) [Entitic vol] 42.5 fL 35.1-43.9 [facility] Hematocrit Auto (Bld) [Volum e fraction]Ordered By: Renard Burgos on 08-07-2023 Hematocrit (Bld) [Volume fraction] 42.5 % 40-54 [facility] Immature granulocytes/100 WB C Auto (Bld)Ordered By: Renard Burgos on 08-07-2023 Immature granulocytes/100 WBC (Bld) 0.400 % 0.0-0.9 [facility] Comment on above: IG% - Immature Granu locytes (promyelocytes, myelocytes and metamyelocytes) > 1% indicates that a LEFT SHIFT is Present. Laboratory - Hematology and Cell countsOrdered By: Renard Burgos on 08-07-2023 MCH (RBC) [Entitic mass] 29.4 pg 27.0-32.0 [facility] MCHC (RBC) [Mass/Vol] 32.7 g/dL 32-36 [facility] Nucleated RBC/100 WBC (Bld) [Ratio] 0 % 0-5 [facility] Platelet mean volume (Bld) [Entitic vol] 10.7 fL 6.2-12.0 [facility] Platelets (Bld) [#/Vol] 210 10*3/uL 150-450 [facility] RBC Auto (Bld) [#/Vol]Ordere d By: Renard Burgos on 08-07-2023 RBC (Bld) [#/Vol] 4.72 10*6/uL 4.6-6.2 [facility] Absolute lymphocyte countOrd ered By: Renard Burgos on 07-31-2023 Lymphocytes Auto (Unsp spec) [#/Vol] 2.04 10*3/uL 0.83-4.51 [facility] Automated lymphocyte count a s percentage of total leukocytesOrdered By: Renard Burgos on 07-31-2023 Lymphocytes/100 WBC Auto (Unsp spec) 24.2 % 19-41 [facility] Basophil percentageOrdered B y: Renard Burgos on 07-31-2023 Basophils/100 WBC (Bld) 0.6 % 0-1 [facility] Eosinophils/100 WBC (Bld) 0.6 % 0-5 [facility] Hemoglobin (Bld) [Mass/Vol] 13.9 g/dL 13.0-16.5 [facility] Monocytes/100 WBC (Bld) 8.5 % 0-10 [facility] Neutrophils (Bld) [#/Vol] 5.5 10*3/uL 2.0-7.7 [facility] Neutrophils/100 WBC (Bld) 65.7 % 47-70 [facility] WBC (Bld) [#/Vol] 8.4 10*3/uL 4.4-11.0 [facility] Determination of erythrocyte mean corpuscular volume (MCV)Ordered By: Renard Burgos on 07-31-2023 MCV (RBC) [Entitic vol] 89.7 fL 80-94 [facility] Erythrocyte distribution wid th ratioOrdered By: Renard uBrgos on 07-31-2023 Erythrocyte distribution width (RBC) [Ratio] 12.8 % 11.6-14.6 [facility] Erythrocyte distribution wid th standard deviationOrdered By: Renard Burgos on 07-31-2023 Erythrocyte distribution width (RBC) [Entitic vol] 42.2 fL 35.1-43.9 [facility] Hematocrit Auto (Bld) [Volum e fraction]Ordered By: Renard Burgos on 07-31-2023 Hematocrit (Bld) [Volume fraction] 41.7 % 40-54 [facility] Immature granulocytes/100 WB C Auto (Bld)Ordered By: Renard Burgos on 07-31-2023 Immature granulocytes/100 WBC (Bld) 0.400 % 0.0-0.9 [facility] Comment on above: IG% - Immature Granu locytes (promyelocytes, myelocytes and metamyelocytes) > 1% indicates that a LEFT SHIFT is Present. Laboratory - Hematology and Cell countsOrdered By: Renard Burgos on 07-31-2023 MCH (RBC) [Entitic mass] 29.9 pg 27.0-32.0 [facility] MCHC (RBC) [Mass/Vol] 33.3 g/dL 32-36 [facility] Nucleated RBC/100 WBC (Bld) [Ratio] 0 % 0-5 [facility] Platelet mean volume (Bld) [Entitic vol] 10.6 fL 6.2-12.0 [facility] Platelets (Bld) [#/Vol] 201 10*3/uL 150-450 [facility] RBC Auto (Bld) [#/Vol]Ordere d By: Renard Burgos on 07-31-2023 RBC (Bld) [#/Vol] 4.65 10*6/uL 4.6-6.2 [facility] Absolute lymphocyte countOrd ered By: Renard Burgos on 07-24-2023 Lymphocytes Auto (Unsp spec) [#/Vol] 2.00 10*3/uL 0.83-4.51 [facility] Automated lymphocyte count a s percentage of total leukocytesOrdered By: Renard Burgos on 07-24-2023 Lymphocytes/100 WBC Auto (Unsp spec) 26.2 % 19-41 [facility] Basophil percentageOrdered B y: Renard Burgos on 07-24-2023 Basophils/100 WBC (Bld) 0.7 % 0-1 [facility] Eosinophils/100 WBC (Bld) 0.7 % 0-5 [facility] Hemoglobin (Bld) [Mass/Vol] 14.2 g/dL 13.0-16.5 [facility] Monocytes/100 WBC (Bld) 6.4 % 0-10 [facility] Neutrophils (Bld) [#/Vol] 5.0 10*3/uL 2.0-7.7 [facility] Neutrophils/100 WBC (Bld) 65.6 % 47-70 [facility] WBC (Bld) [#/Vol] 7.6 10*3/uL 4.4-11.0 [facility] Determination of erythrocyte mean corpuscular volume (MCV)Ordered By: Renard Burgos on 07-24-2023 MCV (RBC) [Entitic vol] 89.8 fL 80-94 [facility] Erythrocyte distribution wid th ratioOrdered By: Renard Burgos on 07-24-2023 Erythrocyte distribution width (RBC) [Ratio] 12.8 % 11.6-14.6 [facility] Erythrocyte distribution wid th standard deviationOrdered By: Renard Burgos on 07-24-2023 Erythrocyte distribution width (RBC) [Entitic vol] 42.0 fL 35.1-43.9 [facility] Hematocrit Auto (Bld) [Volum e fraction]Ordered By: Renard Burgos on 07-24-2023 Hematocrit (Bld) [Volume fraction] 43.3 % 40-54 [facility] [facility] Immature granulocytes/100 WB C Auto (Bld)Ordered By: Renard Burgos on 07-24-2023 Immature granulocytes/100 WBC (Bld) 0.400 % 0.0-0.9 [facility] Comment on above: IG% - Immature Granu locytes (promyelocytes, myelocytes and metamyelocytes) > 1% indicates that a LEFT SHIFT is Present. Laboratory - Hematology and Cell countsOrdered By: Renard Burgos on 07-24-2023 MCH (RBC) [Entitic mass] 29.5 pg 27.0-32.0 [facility] MCHC (RBC) [Mass/Vol] 32.8 g/dL 32-36 [facility] Nucleated RBC/100 WBC (Bld) [Ratio] 0 % 0-5 [facility] Platelet mean volume (Bld) [Entitic vol] 11.0 fL 6.2-12.0 [facility] Platelets (Bld) [#/Vol] 215 10*3/uL 150-450 [facility] RBC Auto (Bld) [#/Vol]Ordere d By: Renard Burgos on 07-24-2023 RBC (Bld) [#/Vol] 4.82 10*6/uL 4.6-6.2 [facility] Absolute lymphocyte countOrd ered By: Renard Burgos on 07-17-2023 Lymphocytes Auto (Unsp spec) [#/Vol] 2.22 10*3/uL 0.83-4.51 [facility] Automated lymphocyte count a s percentage of total leukocytesOrdered By: Renard Burgos on 07-17-2023 Lymphocytes/100 WBC Auto (Unsp spec) 25.4 % 19-41 [facility] Basophil percentageOrdered B y: Renard Burgos on 07-17-2023 Basophils/100 WBC (Bld) 0.5 % 0-1 [facility] Cholesterol [Mass/Vol] 126 mg/dL <200 [facility] Comment on above: <200 mg/dL Desirable 200-240 mg/dL Borderline >240 mg/dL High Risk Eosinophils/100 WBC (Bld) 0.6 % 0-5 [facility] Hemoglobin (Bld) [Mass/Vol] 14.0 g/dL 13.0-16.5 [facility] Monocytes/100 WBC (Bld) 6.6 % 0-10 [facility] Neutrophils (Bld) [#/Vol] 5.8 10*3/uL 2.0-7.7 [facility] Neutrophils/100 WBC (Bld) 66.4 % 47-70 [facility] Triglyceride [Mass/Vol] 176 mg/dL <199 [facility] Comment on above: The drugs N-Acetylcy steine and Metamizole may falsely depress this assay.Serum Triglycerides Reference Interval Normal <150 mg/dL Borderline high 150 - 199 mg/dL High 200 - 499 mg/dL Very High > or = 500 mg/dL WBC (Bld) [#/Vol] 8.7 10*3/uL 4.4-11.0 [facility] Determination of erythrocyte mean corpuscular volume (MCV)Ordered By: Renard Burgos on 07-17-2023 MCV (RBC) [Entitic vol] 90.5 fL 80-94 [facility] Erythrocyte distribution wid th ratioOrdered By: Renard Burgos on 07-17-2023 Erythrocyte distribution width (RBC) [Ratio] 12.4 % 11.6-14.6 [facility] Erythrocyte distribution wid th standard deviationOrdered By: Renard Burgos on 07-17-2023 Erythrocyte distribution width (RBC) [Entitic vol] 41.1 fL 35.1-43.9 [facility] Hematocrit Auto (Bld) [Volum e fraction]Ordered By: Renard Burgos on 07-17-2023 Hematocrit (Bld) [Volume fraction] 42.8 % 40-54 [facility] Immature granulocytes/100 WB C Auto (Bld)Ordered By: Renard Burgos on 07-17-2023 Immature granulocytes/100 WBC (Bld) 0.500 % 0.0-0.9 [facility] Comment on above: IG% - Immature Granu locytes (promyelocytes, myelocytes and metamyelocytes) > 1% indicates that a LEFT SHIFT is Present. Laboratory - Chemistry and C hemistry - challengeOrdered By: Renard Burgos on 07-17-2023 Cholesterol in HDL [Mass/Vol] 28 mg/dL >40 [facility] Comment on above: The drugs N-Acetylcy steine and Metamizole may falsely depress this assay. Reference Range HDL <40 mg/dL Low HDL Cholesterol HDL >or= 60 mg/dL High HDL Cholesterol Cholesterol in LDL [Mass/Vol] 63 mg/dL 0-130 [facility] Laboratory - Hematology and Cell countsOrdered By: Renard Burgos on 07-17-2023 MCH (RBC) [Entitic mass] 29.6 pg 27.0-32.0 [facility] MCHC (RBC) [Mass/Vol] 32.7 g/dL 32-36 [facility] Nucleated RBC/100 WBC (Bld) [Ratio] 0 % 0-5 [facility] Platelet mean volume (Bld) [Entitic vol] 10.9 fL 6.2-12.0 [facility] Platelets (Bld) [#/Vol] 193 10*3/uL 150-450 [facility] No Panel InformationOrdered By: Renard Burgos on 07-17-2023 Vitamin D 25-Hydroxy 33.1 ng/mL [facility] Comment on above: Vitamin D 25(OH) Sta tus Range Deficiency <20 ng/mL (50nmol/L) Insufficiency 20 - 30 ng/mL (50 - 75 nmol/L) Sufficiency 30 - 100 ng/mL (75 - 250 nmol/L) Toxicity >100 ng/mL (>250 nmol/L) VLDL Cholesterol 35 mg/dL 5-40 [facility] RBC Auto (Bld) [#/Vol]Ordere d By: Renard Burgos on 07-17-2023 RBC (Bld) [#/Vol] 4.73 10*6/uL 4.6-6.2 [facility] Absolute lymphocyte countOrd ered By: Renard Burgos on 07-10-2023 Lymphocytes Auto (Unsp spec) [#/Vol] 2.14 10*3/uL 0.83-4.51 [facility] Automated lymphocyte count a s percentage of total leukocytesOrdered By: Renard Burgos on 07-10-2023 Lymphocytes/100 WBC Auto (Unsp spec) 24.7 % 19-41 [facility] Basophil percentageOrdered B y: Renard Burgos on 07-10-2023 Basophils/100 WBC (Bld) 0.3 % 0-1 [facility] Eosinophils/100 WBC (Bld) 0.3 % 0-5 [facility] Hemoglobin (Bld) [Mass/Vol] 13.8 g/dL 13.0-16.5 [facility] Monocytes/100 WBC (Bld) 7.8 % 0-10 [facility] Neutrophils (Bld) [#/Vol] 5.8 10*3/uL 2.0-7.7 [facility] Neutrophils/100 WBC (Bld) 66.4 % 47-70 [facility] WBC (Bld) [#/Vol] 8.7 10*3/uL 4.4-11.0 [facility] Determination of erythrocyte mean corpuscular volume (MCV)Ordered By: Renard Burgos on 07-10-2023 MCV (RBC) [Entitic vol] 88.9 fL 80-94 [facility] Erythrocyte distribution wid th ratioOrdered By: Renard Burgos on 07-10-2023 Erythrocyte distribution width (RBC) [Ratio] 12.6 % 11.6-14.6 [facility] Erythrocyte distribution wid th standard deviationOrdered By: Renard Burgos on 07-10-2023 Erythrocyte distribution width (RBC) [Entitic vol] 40.6 fL 35.1-43.9 [facility] Hematocrit Auto (Bld) [Volum e fraction]Ordered By: Renard Burgos on 07-10-2023 Hematocrit (Bld) [Volume fraction] 41.0 % 40-54 [facility] Immature granulocytes/100 WB C Auto (Bld)Ordered By: Renard Burgos on 07-10-2023 Immature granulocytes/100 WBC (Bld) 0.500 % 0.0-0.9 [facility] Comment on above: IG% - Immature Granu locytes (promyelocytes, myelocytes and metamyelocytes) > 1% indicates that a LEFT SHIFT is Present. Laboratory - Hematology and Cell countsOrdered By: Renard Burgos on 07-10-2023 MCH (RBC) [Entitic mass] 29.9 pg 27.0-32.0 [facility] MCHC (RBC) [Mass/Vol] 33.7 g/dL 32-36 [facility] Nucleated RBC/100 WBC (Bld) [Ratio] 0 % 0-5 [facility] Platelet mean volume (Bld) [Entitic vol] 11.0 fL 6.2-12.0 [facility] Platelets (Bld) [#/Vol] 215 10*3/uL 150-450 [facility] RBC Auto (Bld) [#/Vol]Ordere d By: Renard Burgos on 07-10-2023 RBC (Bld) [#/Vol] 4.61 10*6/uL 4.6-6.2 [facility] Absolute lymphocyte countOrd ered By: Renard Burgos on 07-03-2023 Lymphocytes Auto (Unsp spec) [#/Vol] 1.84 10*3/uL 0.83-4.51 [facility] Automated lymphocyte count a s percentage of total leukocytesOrdered By: Renard Burgos on 07-03-2023 Lymphocytes/100 WBC Auto (Unsp spec) 16.9 % 19-41 [facility] Basophil percentageOrdered B y: Renard Burgos on 07-03-2023 Basophil percentage 3.17 ng/mL 0.0-4.0 [facility] Comment on above: This test was perfor med using the TPSA assay method for the[employer] chemistry system. Values obtained with differentassay methods cannot be used interchangably.When changing PSA assays in the course of monitoring apatient, additional sequential testing should be carriedout to confirm baseline values. Basophils/100 WBC (Bld) 0.5 % 0-1 [facility] Eosinophils/100 WBC (Bld) 0.4 % 0-5 [facility] Hemoglobin (Bld) [Mass/Vol] 13.2 g/dL 13.0-16.5 [facility] Monocytes/100 WBC (Bld) 7.4 % 0-10 [facility] Neutrophils (Bld) [#/Vol] 8.1 10*3/uL 2.0-7.7 [facility] Neutrophils/100 WBC (Bld) 74.4 % 47-70 [facility] WBC (Bld) [#/Vol] 10.9 10*3/uL 4.4-11.0 [facility] Determination of erythrocyte mean corpuscular volume (MCV)Ordered By: Renard Burgos on 07-03-2023 MCV (RBC) [Entitic vol] 89.8 fL 80-94 [facility] Erythrocyte distribution wid th ratioOrdered By: Renard Burgos on 07-03-2023 Erythrocyte distribution width (RBC) [Ratio] 12.7 % 11.6-14.6 [facility] Erythrocyte distribution wid th standard deviationOrdered By: Renard Burgos on 07-03-2023 Erythrocyte distribution width (RBC) [Entitic vol] 41.9 fL 35.1-43.9 [facility] Hematocrit Auto (Bld) [Volum e fraction]Ordered By: Renard Burgos on 07-03-2023 Hematocrit (Bld) [Volume fraction] 40.3 % 40-54 [facility] Immature granulocytes/100 WB C Auto (Bld)Ordered By: Renard Burgos on 07-03-2023 Immature granulocytes/100 WBC (Bld) 0.400 % 0.0-0.9 [facility] Comment on above: IG% - Immature Granu locytes (promyelocytes, myelocytes and metamyelocytes) > 1% indicates that a LEFT SHIFT is Present. Laboratory - Hematology and Cell countsOrdered By: Renard Burgos on 07-03-2023 MCH (RBC) [Entitic mass] 29.4 pg 27.0-32.0 [facility] MCHC (RBC) [Mass/Vol] 32.8 g/dL 32-36 [facility] Nucleated RBC/100 WBC (Bld) [Ratio] 0 % 0-5 [facility] Platelet mean volume (Bld) [Entitic vol] 11.2 fL 6.2-12.0 [facility] Platelets (Bld) [#/Vol] 191 10*3/uL 150-450 [facility] RBC Auto (Bld) [#/Vol]Ordere d By: Renard Burgos on 07-03-2023 RBC (Bld) [#/Vol] 4.49 10*6/uL 4.6-6.2 [facility] Absolute lymphocyte countOrd ered By: Renard Burgos on 06-26-2023 Lymphocytes Auto (Unsp spec) [#/Vol] 2.23 10*3/uL 0.83-4.51 [facility] Automated lymphocyte count a s percentage of total leukocytesOrdered By: Renard Burgos on 06-26-2023 Lymphocytes/100 WBC Auto (Unsp spec) 27.3 % 19-41 [facility] Basophil percentageOrdered B y: Renard Burgos on 06-26-2023 Basophils/100 WBC (Bld) 0.5 % 0-1 [facility] Eosinophils/100 WBC (Bld) 0.7 % 0-5 [facility] Hemoglobin (Bld) [Mass/Vol] 13.7 g/dL 13.0-16.5 [facility] Monocytes/100 WBC (Bld) 9.5 % 0-10 [facility] Neutrophils (Bld) [#/Vol] 5.1 10*3/uL 2.0-7.7 [facility] Neutrophils/100 WBC (Bld) 61.8 % 47-70 [facility] WBC (Bld) [#/Vol] 8.2 10*3/uL 4.4-11.0 [facility] Determination of erythrocyte mean corpuscular volume (MCV)Ordered By: Renard Burgos on 06-26-2023 MCV (RBC) [Entitic vol] 92.2 fL 80-94 [facility] Erythrocyte distribution wid th ratioOrdered By: Renard Burgos on 06-26-2023 Erythrocyte distribution width (RBC) [Ratio] 12.7 % 11.6-14.6 [facility] Erythrocyte distribution wid th standard deviationOrdered By: Renard Burgos on 06-26-2023 Erythrocyte distribution width (RBC) [Entitic vol] 42.8 fL 35.1-43.9 [facility] Hematocrit Auto (Bld) [Volum e fraction]Ordered By: Renard Burgos on 06-26-2023 Hematocrit (Bld) [Volume fraction] 42.6 % 40-54 [facility] Immature granulocytes/100 WB C Auto (Bld)Ordered By: Renard Burgos on 06-26-2023 Immature granulocytes/100 WBC (Bld) 0.200 % 0.0-0.9 [facility] Comment on above: IG% - Immature Granu locytes (promyelocytes, myelocytes and metamyelocytes) > 1% indicates that a LEFT SHIFT is Present. Laboratory - Hematology and Cell countsOrdered By: Renard Burgos on 06-26-2023 MCH (RBC) [Entitic mass] 29.7 pg 27.0-32.0 [facility] MCHC (RBC) [Mass/Vol] 32.2 g/dL 32-36 [facility] Nucleated RBC/100 WBC (Bld) [Ratio] 0 % 0-5 [facility] Platelet mean volume (Bld) [Entitic vol] 11.0 fL 6.2-12.0 [facility] Platelets (Bld) [#/Vol] 182 10*3/uL 150-450 [facility] RBC Auto (Bld) [#/Vol]Ordere d By: Renard Burgos on 06-26-2023 RBC (Bld) [#/Vol] 4.62 10*6/uL 4.6-6.2 [facility] Absolute lymphocyte countOrd ered By: Renard Burgos on 06-19-2023 Lymphocytes Auto (Unsp spec) [#/Vol] 2.13 10*3/uL 0.83-4.51 [facility] Automated lymphocyte count a s percentage of total leukocytesOrdered By: Renard Burgos on 06-19-2023 Lymphocytes/100 WBC Auto (Unsp spec) 28.8 % 19-41 [facility] Basophil percentageOrdered B y: Renard Burgos on 06-19-2023 Basophils/100 WBC (Bld) 0.5 % 0-1 [facility] Eosinophils/100 WBC (Bld) 0.5 % 0-5 [facility] Hemoglobin (Bld) [Mass/Vol] 13.7 g/dL 13.0-16.5 [facility] Monocytes/100 WBC (Bld) 8.1 % 0-10 [facility] Neutrophils (Bld) [#/Vol] 4.6 10*3/uL 2.0-7.7 [facility] Neutrophils/100 WBC (Bld) 61.6 % 47-70 [facility] WBC (Bld) [#/Vol] 7.4 10*3/uL 4.4-11.0 [facility] Determination of erythrocyte mean corpuscular volume (MCV)Ordered By: Renard Burgos on 06-19-2023 MCV (RBC) [Entitic vol] 91.7 fL 80-94 [facility] Erythrocyte distribution wid th ratioOrdered By: eRnard Burgos on 06-19-2023 Erythrocyte distribution width (RBC) [Ratio] 12.7 % 11.6-14.6 [facility] Erythrocyte distribution wid th standard deviationOrdered By: Renard Burgos on 06-19-2023 Erythrocyte distribution width (RBC) [Entitic vol] 42.8 fL 35.1-43.9 [facility] Hematocrit Auto (Bld) [Volum e fraction]Ordered By: Renard Burgos on 06-19-2023 Hematocrit (Bld) [Volume fraction] 43.1 % 40-54 [facility] Immature granulocytes/100 WB C Auto (Bld)Ordered By: Renard Burgos on 06-19-2023 Immature granulocytes/100 WBC (Bld) 0.500 % 0.0-0.9 [facility] Comment on above: IG% - Immature Granu locytes (promyelocytes, myelocytes and metamyelocytes) > 1% indicates that a LEFT SHIFT is Present. Laboratory - Hematology and Cell countsOrdered By: Renard Burgos on 06-19-2023 MCH (RBC) [Entitic mass] 29.1 pg 27.0-32.0 [facility] MCHC (RBC) [Mass/Vol] 31.8 g/dL 32-36 [facility] Nucleated RBC/100 WBC (Bld) [Ratio] 0 % 0-5 [facility] Platelet mean volume (Bld) [Entitic vol] 11.1 fL 6.2-12.0 [facility] Platelets (Bld) [#/Vol] 201 10*3/uL 150-450 [facility] RBC Auto (Bld) [#/Vol]Ordere d By: Renard Burgos on 06-19-2023 RBC (Bld) [#/Vol] 4.70 10*6/uL 4.6-6.2 [facility] Absolute lymphocyte countOrd ered By: Renard Burgos on 06-12-2023 Lymphocytes Auto (Unsp spec) [#/Vol] 2.17 10*3/uL 0.83-4.51 [facility] Automated lymphocyte count a s percentage of total leukocytesOrdered By: Renard Burgos on 06-12-2023 Lymphocytes/100 WBC Auto (Unsp spec) 26.7 % 19-41 [facility] Basophil percentageOrdered B y: Renard Burgos on 06-12-2023 Basophils/100 WBC (Bld) 0.4 % 0-1 [facility] Eosinophils/100 WBC (Bld) 0.5 % 0-5 [facility] Hemoglobin (Bld) [Mass/Vol] 13.5 g/dL 13.0-16.5 [facility] Monocytes/100 WBC (Bld) 9.0 % 0-10 [facility] Neutrophils (Bld) [#/Vol] 5.1 10*3/uL 2.0-7.7 [facility] Neutrophils/100 WBC (Bld) 63.0 % 47-70 [facility] WBC (Bld) [#/Vol] 8.1 10*3/uL 4.4-11.0 [facility] Determination of erythrocyte mean corpuscular volume (MCV)Ordered By: Renard Burgos on 06-12-2023 MCV (RBC) [Entitic vol] 91.3 fL 80-94 [facility] Erythrocyte distribution wid th ratioOrdered By: Renard Burgos on 06-12-2023 Erythrocyte distribution width (RBC) [Ratio] 12.6 % 11.6-14.6 [facility] Erythrocyte distribution wid th standard deviationOrdered By: Renard Burgos on 06-12-2023 Erythrocyte distribution width (RBC) [Entitic vol] 41.5 fL 35.1-43.9 [facility] Hematocrit Auto (Bld) [Volum e fraction]Ordered By: Renard Burgos on 06-12-2023 Hematocrit (Bld) [Volume fraction] 40.8 % 40-54 [facility] Immature granulocytes/100 WB C Auto (Bld)Ordered By: Renard Burgos on 06-12-2023 Immature granulocytes/100 WBC (Bld) 0.400 % 0.0-0.9 [facility] Comment on above: IG% - Immature Granu locytes (promyelocytes, myelocytes and metamyelocytes) > 1% indicates that a LEFT SHIFT is Present. Laboratory - Hematology and Cell countsOrdered By: Renard Burgos on 06-12-2023 MCH (RBC) [Entitic mass] 30.2 pg 27.0-32.0 [facility] MCHC (RBC) [Mass/Vol] 33.1 g/dL 32-36 [facility] Nucleated RBC/100 WBC (Bld) [Ratio] 0 % 0-5 [facility] Platelet mean volume (Bld) [Entitic vol] 11.0 fL 6.2-12.0 [facility] Platelets (Bld) [#/Vol] 195 10*3/uL 150-450 [facility] RBC Auto (Bld) [#/Vol]Ordere d By: Renard Burgos on 06-12-2023 RBC (Bld) [#/Vol] 4.47 10*6/uL 4.6-6.2 [facility] Absolute lymphocyte countOrd ered By: Renard Burgos on 06-05-2023 Lymphocytes Auto (Unsp spec) [#/Vol] 2.05 10*3/uL 0.83-4.51 [facility] Automated lymphocyte count a s percentage of total leukocytesOrdered By: Renard Burgos on 06-05-2023 Lymphocytes/100 WBC Auto (Unsp spec) 24.1 % 19-41 [facility] Basophil percentageOrdered B y: Renard Burgos on 06-05-2023 Basophils/100 WBC (Bld) 0.5 % 0-1 [facility] Eosinophils/100 WBC (Bld) 0.5 % 0-5 [facility] Hemoglobin (Bld) [Mass/Vol] 13.6 g/dL 13.0-16.5 [facility] Monocytes/100 WBC (Bld) 7.6 % 0-10 [facility] Neutrophils (Bld) [#/Vol] 5.7 10*3/uL 2.0-7.7 [facility] Neutrophils/100 WBC (Bld) 66.9 % 47-70 [facility] WBC (Bld) [#/Vol] 8.5 10*3/uL 4.4-11.0 [facility] Determination of erythrocyte mean corpuscular volume (MCV)Ordered By: Renard Burgos on 06-05-2023 MCV (RBC) [Entitic vol] 89.7 fL 80-94 [facility] Erythrocyte distribution wid th ratioOrdered By: Renard Burgos on 06-05-2023 Erythrocyte distribution width (RBC) [Ratio] 12.6 % 11.6-14.6 [facility] Erythrocyte distribution wid th standard deviationOrdered By: Renard Burgos on 06-05-2023 Erythrocyte distribution width (RBC) [Entitic vol] 41.1 fL 35.1-43.9 [facility] Hematocrit Auto (Bld) [Volum e fraction]Ordered By: Renard Burgos on 06-05-2023 Hematocrit (Bld) [Volume fraction] 41.0 % 40-54 [facility] Immature granulocytes/100 WB C Auto (Bld)Ordered By: Renard Burgos on 06-05-2023 Immature granulocytes/100 WBC (Bld) 0.400 % 0.0-0.9 [facility] Comment on above: IG% - Immature Granu locytes (promyelocytes, myelocytes and metamyelocytes) > 1% indicates that a LEFT SHIFT is Present. Laboratory - Hematology and Cell countsOrdered By: Renard Burgos on 06-05-2023 MCH (RBC) [Entitic mass] 29.8 pg 27.0-32.0 [facility] MCHC (RBC) [Mass/Vol] 33.2 g/dL 32-36 [facility] Nucleated RBC/100 WBC (Bld) [Ratio] 0 % 0-5 [facility] Platelets (Bld) [#/Vol] 193 10*3/uL 150-450 [facility] Platelet mean volume Adam-Ec ker (Bld) [Entitic vol]Ordered By: Renard Burgos on 06-05-2023 Platelet mean volume (Bld) [Entitic vol] 10.8 fL 6.2-12.0 [facility] RBC Auto (Bld) [#/Vol]Ordere d By: Renard Burgos on 06-05-2023 RBC (Bld) [#/Vol] 4.57 10*6/uL 4.6-6.2 [facility] Absolute lymphocyte countOrd ered By: Renard Burgos on 05-29-2023 Lymphocytes Auto (Unsp spec) [#/Vol] 2.32 10*3/uL 0.83-4.51 [facility] Automated lymphocyte count a s percentage of total leukocytesOrdered By: Renard Burgos on 05-29-2023 Lymphocytes/100 WBC Auto (Unsp spec) 26.7 % 19-41 [facility] Basophil percentageOrdered B y: Renard Burgos on 05-29-2023 Basophils/100 WBC (Bld) 0.6 % 0-1 [facility] Eosinophils/100 WBC (Bld) 0.5 % 0-5 [facility] Hemoglobin (Bld) [Mass/Vol] 14.2 g/dL 13.0-16.5 [facility] Monocytes/100 WBC (Bld) 6.8 % 0-10 [facility] Neutrophils (Bld) [#/Vol] 5.7 10*3/uL 2.0-7.7 [facility] Neutrophils/100 WBC (Bld) 65.2 % 47-70 [facility] WBC (Bld) [#/Vol] 8.7 10*3/uL 4.4-11.0 [facility] Determination of erythrocyte mean corpuscular volume (MCV)Ordered By: Renard Burgos on 05-29-2023 MCV (RBC) [Entitic vol] 94.0 fL 80-94 [facility] Erythrocyte distribution wid th ratioOrdered By: Renard Burgos on 05-29-2023 Erythrocyte distribution width (RBC) [Ratio] 12.6 % 11.6-14.6 [facility] Erythrocyte distribution wid th standard deviationOrdered By: Renard Burgos on 05-29-2023 Erythrocyte distribution width (RBC) [Entitic vol] 43.0 fL 35.1-43.9 [facility] Hematocrit Auto (Bld) [Volum e fraction]Ordered By: Renard Burgos on 05-29-2023 Hematocrit (Bld) [Volume fraction] 45.4 % 40-54 [facility] Immature granulocytes/100 WB C Auto (Bld)Ordered By: Renard Burgos on 05-29-2023 Immature granulocytes/100 WBC (Bld) 0.200 % 0.0-0.9 [facility] Comment on above: IG% - Immature Granu locytes (promyelocytes, myelocytes and metamyelocytes) > 1% indicates that a LEFT SHIFT is Present. Laboratory - Hematology and Cell countsOrdered By: Renard Burgos on 05-29-2023 MCH (RBC) [Entitic mass] 29.4 pg 27.0-32.0 [facility] MCHC (RBC) [Mass/Vol] 31.3 g/dL 32-36 [facility] Nucleated RBC/100 WBC (Bld) [Ratio] 0 % 0-5 [facility] Platelets (Bld) [#/Vol] 116 10*3/uL 150-450 [facility] Platelet mean volume Adam-Ec ker (Bld) [Entitic vol]Ordered By: Renard Burgos on 05-29-2023 Platelet mean volume (Bld) [Entitic vol] 11.1 fL 6.2-12.0 [facility] RBC Auto (Bld) [#/Vol]Ordere d By: Renard Burgos on 05-29-2023 RBC (Bld) [#/Vol] 4.83 10*6/uL 4.6-6.2 [facility] Absolute lymphocyte countOrd ered By: Renard Burgos on 05-22-2023 Lymphocytes Auto (Unsp spec) [#/Vol] 2.40 10*3/uL 0.83-4.51 [facility] Automated lymphocyte count a s percentage of total leukocytesOrdered By: Renard Burgos on 05-22-2023 Lymphocytes/100 WBC Auto (Unsp spec) 25.6 % 19-41 [facility] Basophil percentageOrdered B y: Renard Burgos on 05-22-2023 Basophils/100 WBC (Bld) 0.4 % 0-1 [facility] Eosinophils/100 WBC (Bld) 0.4 % 0-5 [facility] Hemoglobin (Bld) [Mass/Vol] 13.7 g/dL 13.0-16.5 [facility] Monocytes/100 WBC (Bld) 9.1 % 0-10 [facility] Neutrophils (Bld) [#/Vol] 6.0 10*3/uL 2.0-7.7 [facility] Neutrophils/100 WBC (Bld) 63.9 % 47-70 [facility] WBC (Bld) [#/Vol] 9.4 10*3/uL 4.4-11.0 [facility] Determination of erythrocyte mean corpuscular volume (MCV)Ordered By: Renard Burgos on 05-22-2023 MCV (RBC) [Entitic vol] 91.8 fL 80-94 [facility] Erythrocyte distribution wid th ratioOrdered By: Renard Burgos on 05-22-2023 Erythrocyte distribution width (RBC) [Ratio] 12.8 % 11.6-14.6 [facility] Erythrocyte distribution wid th standard deviationOrdered By: Renard Burgos on 05-22-2023 Erythrocyte distribution width (RBC) [Entitic vol] 43.4 fL 35.1-43.9 [facility] Hematocrit Auto (Bld) [Volum e fraction]Ordered By: Renard Burgos on 05-22-2023 Hematocrit (Bld) [Volume fraction] 41.5 % 40-54 [facility] Immature granulocytes/100 WB C Auto (Bld)Ordered By: Renard Burgos on 05-22-2023 Immature granulocytes/100 WBC (Bld) 0.600 % 0.0-0.9 [facility] Comment on above: IG% - Immature Granu locytes (promyelocytes, myelocytes and metamyelocytes) > 1% indicates that a LEFT SHIFT is Present. Laboratory - Hematology and Cell countsOrdered By: Renard Burgos on 05-22-2023 MCH (RBC) [Entitic mass] 30.3 pg 27.0-32.0 [facility] MCHC (RBC) [Mass/Vol] 33.0 g/dL 32-36 [facility] Nucleated RBC/100 WBC (Bld) [Ratio] 0 % 0-5 [facility] Platelets (Bld) [#/Vol] 192 10*3/uL 150-450 [facility] Platelet mean volume Adam-Ec ker (Bld) [Entitic vol]Ordered By: Renard Burgos on 05-22-2023 Platelet mean volume (Bld) [Entitic vol] 11.3 fL 6.2-12.0 [facility] RBC Auto (Bld) [#/Vol]Ordere d By: Renard Burgos on 05-22-2023 RBC (Bld) [#/Vol] 4.52 10*6/uL 4.6-6.2 [facility] Absolute lymphocyte countOrd ered By: Renard Burgos on 05-15-2023 Lymphocytes Auto (Unsp spec) [#/Vol] 2.11 10*3/uL 0.83-4.51 [facility] Basophil percentageOrdered B y: Renard Burgos on 05-15-2023 Basophils/100 WBC (Bld) 0.6 % 0-1 [facility] Eosinophils/100 WBC (Bld) 0.8 % 0-5 [facility] Neutrophils (Bld) [#/Vol] 4.9 10*3/uL 2.0-7.7 [facility] Neutrophils/100 WBC (Bld) 62.4 % 47-70 [facility] WBC (Bld) [#/Vol] 7.9 10*3/uL 4.4-11.0 [facility] Blood erythrocytes count (nu mber/volume)Ordered By: Renard Burgos on 05-15-2023 RBC (Bld) [#/Vol] 4.61 10*6/uL 4.6-6.2 [facility] Blood hemoglobin measurement (mass/volume)Ordered By: Renard Burgos on 05-15-2023 Hemoglobin (Bld) [Mass/Vol] 13.9 g/dL 13.0-16.5 [facility] Blood lymphocytes/100 leukoc ytesOrdered By: Renard Burgos on 05-15-2023 Lymphocytes/100 WBC (Bld) 26.7 % 19-41 [facility] Blood monocytes/100 leukocyt esOrdered By: Renard Burgos on 05-15-2023 Monocytes/100 WBC (Bld) 9.1 % 0-10 [facility] Blood platelet mean volumeOr dered By: Renard Burgos on 05-15-2023 Platelet mean volume (Bld) [Entitic vol] 10.7 fL 6.2-12.0 [facility] Determination of erythrocyte mean corpuscular volume (MCV)Ordered By: Renard Burgos on 05-15-2023 MCV (RBC) [Entitic vol] 90.5 fL 80-94 [facility] Hematocrit Auto (Bld) [Volum e fraction]Ordered By: Renard Burgos on 05-15-2023 Hematocrit (Bld) [Volume fraction] 41.7 % 40-54 [facility] Laboratory - Hematology and Cell countsOrdered By: Renard Burgos on 05-15-2023 Erythrocyte distribution width (RBC) [Entitic vol] 42.4 fL 35.1-43.9 [facility] Erythrocyte distribution width (RBC) [Ratio] 12.9 % 11.6-14.6 [facility] Immature granulocytes/100 WBC (Bld) 0.400 % 0.0-0.9 [facility] Comment on above: IG% - Immature Granu locytes (promyelocytes, myelocytes and metamyelocytes) > 1% indicates that a LEFT SHIFT is Present. MCH (RBC) [Entitic mass] 30.2 pg 27.0-32.0 [facility] Nucleated RBC/100 WBC (Bld) [Ratio] 0 % 0-5 [facility] MCHC Auto (RBC) [Mass/Vol]Or dered By: Renard Burgos on 05-15-2023 MCHC (RBC) [Mass/Vol] 33.3 g/dL 32-36 [facility] Platelets bldOrdered By: Lyubov Burgos on 05-15-2023 Platelets (Bld) [#/Vol] 202 10*3/uL 150-450 [facility] Absolute lymphocyte countOrd ered By: Renard Burgos on 05-08-2023 Lymphocytes Auto (Unsp spec) [#/Vol] 2.06 10*3/uL 0.83-4.51 [facility] Basophil percentageOrdered B y: Renard Burgos on 05-08-2023 Basophils/100 WBC (Bld) 0.4 % 0-1 [facility] Eosinophils/100 WBC (Bld) 0.5 % 0-5 [facility] Neutrophils (Bld) [#/Vol] 5.0 10*3/uL 2.0-7.7 [facility] Neutrophils/100 WBC (Bld) 65.7 % 47-70 [facility] WBC (Bld) [#/Vol] 7.5 10*3/uL 4.4-11.0 [facility] Blood erythrocytes count (nu mber/volume)Ordered By: Renard Burgos on 05-08-2023 RBC (Bld) [#/Vol] 4.62 10*6/uL 4.6-6.2 [facility] Blood hemoglobin measurement (mass/volume)Ordered By: Renard Burgos on 05-08-2023 Hemoglobin (Bld) [Mass/Vol] 13.6 g/dL 13.0-16.5 [facility] Blood lymphocytes/100 leukoc ytesOrdered By: Renard Burgos on 05-08-2023 Lymphocytes/100 WBC (Bld) 27.4 % 19-41 [facility] Blood monocytes/100 leukocyt esOrdered By: Renard Burgos on 05-08-2023 Monocytes/100 WBC (Bld) 5.6 % 0-10 [facility] Blood platelet mean volumeOr dered By: Renard Burgos on 05-08-2023 Platelet mean volume (Bld) [Entitic vol] 11.0 fL 6.2-12.0 [facility] Determination of erythrocyte mean corpuscular volume (MCV)Ordered By: Renard Burgos on 05-08-2023 MCV (RBC) [Entitic vol] 91.8 fL 80-94 [facility] Hematocrit Auto (Bld) [Volum e fraction]Ordered By: Renard Burgos on 05-08-2023 Hematocrit (Bld) [Volume fraction] 42.4 % 40-54 [facility] Laboratory - Hematology and Cell countsOrdered By: Renard Burgos on 05-08-2023 Erythrocyte distribution width (RBC) [Entitic vol] 43.1 fL 35.1-43.9 [facility] Erythrocyte distribution width (RBC) [Ratio] 13.0 % 11.6-14.6 [facility] Immature granulocytes/100 WBC (Bld) 0.400 % 0.0-0.9 [facility] Comment on above: IG% - Immature Granu locytes (promyelocytes, myelocytes and metamyelocytes) > 1% indicates that a LEFT SHIFT is Present. MCH (RBC) [Entitic mass] 29.4 pg 27.0-32.0 [facility] Nucleated RBC/100 WBC (Bld) [Ratio] 0 % 0-5 [facility] MCHC Auto (RBC) [Mass/Vol]Or dered By: Renard Burgos on 05-08-2023 MCHC (RBC) [Mass/Vol] 32.1 g/dL 32-36 [facility] Platelets bldOrdered By: Lyubov Burgos on 05-08-2023 Platelets (Bld) [#/Vol] 226 10*3/uL 150-450 [facility] Absolute lymphocyte countOrd ered By: Renard Burgos on 04-17-2023 Lymphocytes Auto (Unsp spec) [#/Vol] 0.92 10*3/uL 0.83-4.51 [facility] Basophil percentageOrdered B y: Renard Burgos on 04-17-2023 Basophils/100 WBC (Bld) 0.1 % 0-1 [facility] Eosinophils/100 WBC (Bld) 0.0 % 0-5 [facility] Neutrophils (Bld) [#/Vol] 6.0 10*3/uL 2.0-7.7 [facility] Neutrophils/100 WBC (Bld) 81.4 % 47-70 [facility] WBC (Bld) [#/Vol] 7.4 10*3/uL 4.4-11.0 [facility] Blood erythrocytes count (nu mber/volume)Ordered By: Renard Burgos on 04-17-2023 RBC (Bld) [#/Vol] 4.59 10*6/uL 4.6-6.2 [facility] Blood hemoglobin measurement (mass/volume)Ordered By: Renard Burgos on 04-17-2023 Hemoglobin (Bld) [Mass/Vol] 13.7 g/dL 13.0-16.5 [facility] Blood lymphocytes/100 leukoc ytesOrdered By: Renard Burgos on 04-17-2023 Lymphocytes/100 WBC (Bld) 12.5 % 19-41 [facility] Blood monocytes/100 leukocyt esOrdered By: Renard Burgos on 04-17-2023 Monocytes/100 WBC (Bld) 5.6 % 0-10 [facility] Blood platelet mean volumeOr dered By: Renard Burgos on 04-17-2023 Platelet mean volume (Bld) [Entitic vol] 10.9 fL 6.2-12.0 [facility] Determination of erythrocyte mean corpuscular volume (MCV)Ordered By: Renard Burgos on 04-17-2023 MCV (RBC) [Entitic vol] 90.8 fL 80-94 [facility] Hematocrit Auto (Bld) [Volum e fraction]Ordered By: Renard Burgos on 04-17-2023 Hematocrit (Bld) [Volume fraction] 41.7 % 40-54 [facility] Laboratory - Hematology and Cell countsOrdered By: Renard Burgos on 04-17-2023 Erythrocyte distribution width (RBC) [Entitic vol] 42.3 fL 35.1-43.9 [facility] Erythrocyte distribution width (RBC) [Ratio] 12.8 % 11.6-14.6 [facility] Immature granulocytes/100 WBC (Bld) 0.400 % 0.0-0.9 [facility] Comment on above: IG% - Immature Granu locytes (promyelocytes, myelocytes and metamyelocytes) > 1% indicates that a LEFT SHIFT is Present. MCH (RBC) [Entitic mass] 29.8 pg 27.0-32.0 [facility] Nucleated RBC/100 WBC (Bld) [Ratio] 0 % 0-5 [facility] MCHC Auto (RBC) [Mass/Vol]Or dered By: Renard Burgos on 04-17-2023 MCHC (RBC) [Mass/Vol] 32.9 g/dL 32-36 [facility] Platelets bldOrdered By: Lyubov Burgos on 04-17-2023 Platelets (Bld) [#/Vol] 194 10*3/uL 150-450 [facility] Basophil percentageOrdered B y: Renard Burgos on 04-14-2023 Bilirubin [Mass/Vol] 0.30 mg/dL 0.20-1.00 [facility] Comment on above: For patients on eltr ombopag therapy, use of Dimension Bozman TBIL is not recommended. Protein [Mass/Vol] 6.2 g/dL 6.4-8.2 [facility] Direct bilirubinOrdered By: Renard Burgos on 04-14-2023 Bilirubin.direct [Mass/Vol] 0.11 mg/dL 0.00-0.30 [facility] Laboratory - Chemistry and C hemistry - challengeOrdered By: Renard Burgos on 04-14-2023 ALP [Catalytic activity/Vol] 139 U/L 45-117 [facility] ALT [Catalytic activity/Vol] 23 U/L 16-61 [facility] Globulin (S) [Mass/Vol] 3.2 g/dL 2.2-4.2 [facility] Serum or plasma albumin gordy urement (mass/volume)Ordered By: Renard Burgos on 04-14-2023 Albumin [Mass/Vol] 3.0 g/dL 3.2-5.0 [facility] Thin prep Papanicolaou smear with manual screeningOrdered By: Renard Burgos on 04-14-2023 Thin prep Papanicolaou smear with manual screening 14 U/L 15-37 [facility] Absolute lymphocyte countOrd ered By: Renard Burgos on 04-10-2023 Lymphocytes Auto (Unsp spec) [#/Vol] 2.54 10*3/uL 0.83-4.51 [facility] Basophil percentageOrdered B y: Renard Burgos on 04-10-2023 Basophils/100 WBC (Bld) 0.5 % 0-1 [facility] Eosinophils/100 WBC (Bld) 0.5 % 0-5 [facility] Neutrophils (Bld) [#/Vol] 5.1 10*3/uL 2.0-7.7 [facility] Neutrophils/100 WBC (Bld) 59.0 % 47-70 [facility] WBC (Bld) [#/Vol] 8.7 10*3/uL 4.4-11.0 [facility] Blood erythrocytes count (nu mber/volume)Ordered By: Renard Burgos on 04-10-2023 RBC (Bld) [#/Vol] 4.84 10*6/uL 4.6-6.2 [facility] Blood hemoglobin measurement (mass/volume)Ordered By: Renard Burgos on 04-10-2023 Hemoglobin (Bld) [Mass/Vol] 14.2 g/dL 13.0-16.5 [facility] Blood lymphocytes/100 leukoc ytesOrdered By: Renard Burgos on 04-10-2023 Lymphocytes/100 WBC (Bld) 29.4 % 19-41 [facility] Blood monocytes/100 leukocyt esOrdered By: Renard Burgos on 04-10-2023 Monocytes/100 WBC (Bld) 10.3 % 0-10 [facility] Blood platelet mean volumeOr dered By: Renard Burgos on 04-10-2023 Platelet mean volume (Bld) [Entitic vol] 11.1 fL 6.2-12.0 [facility] Determination of erythrocyte mean corpuscular volume (MCV)Ordered By: Renard Burgos on 04-10-2023 MCV (RBC) [Entitic vol] 91.5 fL 80-94 [facility] Hematocrit Auto (Bld) [Volum e fraction]Ordered By: Renard Burgos on 04-10-2023 Hematocrit (Bld) [Volume fraction] 44.3 % 40-54 [facility] Laboratory - Hematology and Cell countsOrdered By: Renard Burgos on 04-10-2023 Erythrocyte distribution width (RBC) [Entitic vol] 41.9 fL 35.1-43.9 [facility] Erythrocyte distribution width (RBC) [Ratio] 12.6 % 11.6-14.6 [facility] Immature granulocytes/100 WBC (Bld) 0.300 % 0.0-0.9 [facility] Comment on above: IG% - Immature Granu locytes (promyelocytes, myelocytes and metamyelocytes) > 1% indicates that a LEFT SHIFT is Present. MCH (RBC) [Entitic mass] 29.3 pg 27.0-32.0 [facility] Nucleated RBC/100 WBC (Bld) [Ratio] 0 % 0-5 [facility] MCHC Auto (RBC) [Mass/Vol]Or dered By: Renard Burgos on 04-10-2023 MCHC (RBC) [Mass/Vol] 32.1 g/dL 32-36 [facility] Platelets bldOrdered By: Lyubov Burgos on 04-10-2023 Platelets (Bld) [#/Vol] 216 10*3/uL 150-450 [facility] Absolute lymphocyte countOrd ered By: Renard Burgos on 04-03-2023 Lymphocytes Auto (Unsp spec) [#/Vol] 1.91 10*3/uL 0.83-4.51 [facility] Basophil percentageOrdered B y: Renard Burgos on 04-03-2023 Basophils/100 WBC (Bld) 0.5 % 0-1 [facility] Eosinophils/100 WBC (Bld) 0.5 % 0-5 [facility] Neutrophils (Bld) [#/Vol] 5.0 10*3/uL 2.0-7.7 [facility] Neutrophils/100 WBC (Bld) 66.5 % 47-70 [facility] WBC (Bld) [#/Vol] 7.6 10*3/uL 4.4-11.0 [facility] Blood erythrocytes count (nu mber/volume)Ordered By: Renard Burgos on 04-03-2023 RBC (Bld) [#/Vol] 4.62 10*6/uL 4.6-6.2 [facility] Blood hemoglobin measurement (mass/volume)Ordered By: Renard Burgos on 04-03-2023 Hemoglobin (Bld) [Mass/Vol] 13.7 g/dL 13.0-16.5 [facility] Blood lymphocytes/100 leukoc ytesOrdered By: Renard Burgos on 04-03-2023 Lymphocytes/100 WBC (Bld) 25.2 % 19-41 [facility] Blood monocytes/100 leukocyt esOrdered By: Renard Burgos on 04-03-2023 Monocytes/100 WBC (Bld) 6.9 % 0-10 [facility] Blood platelet mean volumeOr dered By: Renard Burgos on 04-03-2023 Platelet mean volume (Bld) [Entitic vol] 10.8 fL 6.2-12.0 [facility] Determination of erythrocyte mean corpuscular volume (MCV)Ordered By: Renard Burgos on 04-03-2023 MCV (RBC) [Entitic vol] 91.6 fL 80-94 [facility] Hematocrit Auto (Bld) [Volum e fraction]Ordered By: Renard Burgos on 04-03-2023 Hematocrit (Bld) [Volume fraction] 42.3 % 40-54 [facility] Laboratory - Hematology and Cell countsOrdered By: Renard Burgos on 04-03-2023 Erythrocyte distribution width (RBC) [Entitic vol] 42.6 fL 35.1-43.9 [facility] Erythrocyte distribution width (RBC) [Ratio] 12.8 % 11.6-14.6 [facility] Immature granulocytes/100 WBC (Bld) 0.400 % 0.0-0.9 [facility] Comment on above: IG% - Immature Granu locytes (promyelocytes, myelocytes and metamyelocytes) > 1% indicates that a LEFT SHIFT is Present. MCH (RBC) [Entitic mass] 29.7 pg 27.0-32.0 [facility] Nucleated RBC/100 WBC (Bld) [Ratio] 0 % 0-5 [facility] MCHC Auto (RBC) [Mass/Vol]Or dered By: Renard Burgos on 04-03-2023 MCHC (RBC) [Mass/Vol] 32.4 g/dL 32-36 [facility] Platelets bldOrdered By: Lyubov Burgos on 04-03-2023 Platelets (Bld) [#/Vol] 216 10*3/uL 150-450 [facility] Absolute lymphocyte countOrd ered By: Renard Burgos on 03-27-2023 Lymphocytes Auto (Unsp spec) [#/Vol] 2.06 10*3/uL 0.83-4.51 [facility] Basophil percentageOrdered B y: Renard Burgos on 03-27-2023 Basophils/100 WBC (Bld) 0.4 % 0-1 [facility] Eosinophils/100 WBC (Bld) 0.2 % 0-5 [facility] Neutrophils (Bld) [#/Vol] 6.3 10*3/uL 2.0-7.7 [facility] Neutrophils/100 WBC (Bld) 68.8 % 47-70 [facility] WBC (Bld) [#/Vol] 9.1 10*3/uL 4.4-11.0 [facility] Blood erythrocytes count (nu mber/volume)Ordered By: Renard Burgos on 03-27-2023 RBC (Bld) [#/Vol] 4.51 10*6/uL 4.6-6.2 [facility] Blood hemoglobin measurement (mass/volume)Ordered By: Renard Burgos on 03-27-2023 Hemoglobin (Bld) [Mass/Vol] 13.2 g/dL 13.0-16.5 [facility] Blood lymphocytes/100 leukoc ytesOrdered By: Renard Burgos on 03-27-2023 Lymphocytes/100 WBC (Bld) 22.6 % 19-41 [facility] Blood monocytes/100 leukocyt esOrdered By: Renard Burgos on 03-27-2023 Monocytes/100 WBC (Bld) 7.3 % 0-10 [facility] Blood platelet mean volumeOr dered By: Renard Burgos on 03-27-2023 Platelet mean volume (Bld) [Entitic vol] 10.8 fL 6.2-12.0 [facility] Determination of erythrocyte mean corpuscular volume (MCV)Ordered By: Renard Burgos on 03-27-2023 MCV (RBC) [Entitic vol] 91.6 fL 80-94 [facility] Hematocrit Auto (Bld) [Volum e fraction]Ordered By: Renard Burgos on 03-27-2023 Hematocrit (Bld) [Volume fraction] 41.3 % 40-54 [facility] Laboratory - Hematology and Cell countsOrdered By: Renard Burgos on 03-27-2023 Erythrocyte distribution width (RBC) [Entitic vol] 42.9 fL 35.1-43.9 [facility] Erythrocyte distribution width (RBC) [Ratio] 12.9 % 11.6-14.6 [facility] Immature granulocytes/100 WBC (Bld) 0.700 % 0.0-0.9 [facility] Comment on above: IG% - Immature Granu locytes (promyelocytes, myelocytes and metamyelocytes) > 1% indicates that a LEFT SHIFT is Present. MCH (RBC) [Entitic mass] 29.3 pg 27.0-32.0 [facility] Nucleated RBC/100 WBC (Bld) [Ratio] 0 % 0-5 [facility] MCHC Auto (RBC) [Mass/Vol]Or dered By: Renard Burgos on 03-27-2023 MCHC (RBC) [Mass/Vol] 32.0 g/dL 32-36 [facility] Platelets bldOrdered By: Lyubov Burgos on 03-27-2023 Platelets (Bld) [#/Vol] 205 10*3/uL 150-450 [facility] Absolute lymphocyte countOrd ered By: Renard Burgos on 03-20-2023 Lymphocytes Auto (Unsp spec) [#/Vol] 1.89 10*3/uL 0.83-4.51 [facility] Basophil percentageOrdered B y: Renard Burgos on 03-20-2023 Basophils/100 WBC (Bld) 0.5 % 0-1 [facility] Chloride [Moles/Vol] 107 [facility] 98[facility] WBC (Bld) 0.4 % 0-5 [facility] Glucose [Mass/Vol] 124 mg/dL 74-106 [facility] Comment on above: Fasting Glucose resu lt from 100 to 125 mg/dL suggests IMPAIRED HOMEOSTASIS per A.D.A. criteria. Neutrophils (Bld) [#/Vol] 4.8 10*3/uL 2.0-7.7 [facility] Neutrophils/100 WBC (Bld) 64.9 % 47-70 [facility] Potassium [Moles/Vol] 3.6 mmol/L 3.5-5.1 [facility] Sodium [Moles/Vol] 142 mmol/L 136-145 [facility] WBC (Bld) [#/Vol] 7.4 10*3/uL 4.4-11.0 [facility] Blood erythrocytes count (nu mber/volume)Ordered By: Renard Burgos on 03-20-2023 RBC (Bld) [#/Vol] 4.63 10*6/uL 4.6-6.2 [facility] Blood hemoglobin measurement (mass/volume)Ordered By: Renard Burgos on 03-20-2023 Hemoglobin (Bld) [Mass/Vol] 13.7 g/dL 13.0-16.5 [facility] Blood lymphocytes/100 leukoc ytesOrdered By: Renard Burgos on 03-20-2023 Lymphocytes/100 WBC (Bld) 25.7 % 19-41 [facility] Blood monocytes/100 leukocyt esOrdered By: Renard Burgos on 03-20-2023 Monocytes/100 WBC (Bld) 8.2 % 0-10 [facility] Blood platelet mean volumeOr dered By: Renard Burgos on 03-20-2023 Platelet mean volume (Bld) [Entitic vol] 10.7 fL 6.2-12.0 [facility] Determination of erythrocyte mean corpuscular volume (MCV)Ordered By: Renard Burgos on 03-20-2023 MCV (RBC) [Entitic vol] 90.9 fL 80-94 [facility] Hematocrit Auto (Bld) [Volum e fraction]Ordered By: Renard Burgos on 03-20-2023 Hematocrit (Bld) [Volume fraction] 42.1 % 40-54 [facility] Laboratory - Chemistry and C hemistry - challengeOrdered By: Renard Burgos on 03-20-2023 CO2 [Moles/Vol] 29.0 mmol/L 21.0-32.0 [facility] Urea nitrogen/Creatinine [Mass ratio] 30.7 mg/mg - [facility] Laboratory - Hematology and Cell countsOrdered By: Renard Burgos on 03-20-2023 Erythrocyte distribution width (RBC) [Entitic vol] 43.0 fL 35.1-43.9 [facility] Erythrocyte distribution width (RBC) [Ratio] 12.9 % 11.6-14.6 [facility] Immature granulocytes/100 WBC (Bld) 0.300 % 0.0-0.9 [facility] Comment on above: IG% - Immature Granu locytes (promyelocytes, myelocytes and metamyelocytes) > 1% indicates that a LEFT SHIFT is Present. MCH (RBC) [Entitic mass] 29.6 pg 27.0-32.0 [facility] Nucleated RBC/100 WBC (Bld) [Ratio] 0 % 0-5 [facility] MCHC Auto (RBC) [Mass/Vol]Or dered By: Renard Burgos on 03-20-2023 MCHC (RBC) [Mass/Vol] 32.5 g/dL 32-36 [facility] No Panel InformationOrdered By: Renard Burgos on 03-20-2023 Estimated GFR (MDRD) Amer 178 mL/min >60 [facility] Comment on above: GFR Calc Estimated GFR (MDRD) Non-Af Amer 147 mL/min >60 [facility] Comment on above: Non- GFR Calc Platelets bldOrdered By: Lyubov Burgos on 03-20-2023 Platelets (Bld) [#/Vol] 208 10*3/uL 150-450 [facility] Serum or plasma calcium gordy urement (mass/volume)Ordered By: Renard Burgos on 03-20-2023 Calcium [Mass/Vol] 8.1 mg/dL 8.5-10.1 [facility] Serum or plasma creatinine m easurement (mass/volume)Ordered By: Renard Burgos on 03-20-2023 Creatinine [Mass/Vol] 0.59 mg/dL 0.70-1.30 [facility] Comment on above: The validity of the calculated GFR & GFRAA in patients over 70 years has not been determined. Clinical correlation is essential. Serum or plasma urea nitroge n measurement (mass/volume)Ordered By: Renard Burgos on 03-20-2023 Urea nitrogen [Mass/Vol] 18 mg/dL 7-18 [facility] Thin prep Papanicolaou smear with manual screeningOrdered By: Renard Burgos on 03-20-2023 Thin prep Papanicolaou smear with manual screening 6 5-15 [facility] Erythrocyte sedimentation ra teOrdered By: Renard Burgos on 03-16-2023 ESR (Bld) [Velocity] 3 mm/h 0-20 [facility] Absolute lymphocyte countOrd ered By: Renard Burgos on 03-13-2023 Lymphocytes Auto (Unsp spec) [#/Vol] 2.36 10*3/uL 0.83-4.51 [facility] Basophil percentageOrdered B y: Renard Burgos on 03-13-2023 Basophils/100 WBC (Bld) 0.5 % 0-1 [facility] Eosinophils/100 WBC (Bld) 0.5 % 0-5 [facility] Neutrophils (Bld) [#/Vol] 5.2 10*3/uL 2.0-7.7 [facility] Neutrophils/100 WBC (Bld) 61.3 % 47-70 [facility] WBC (Bld) [#/Vol] 8.5 10*3/uL 4.4-11.0 [facility] Blood erythrocytes count (nu mber/volume)Ordered By: Renard Burgos on 03-13-2023 RBC (Bld) [#/Vol] 4.55 10*6/uL 4.6-6.2 [facility] Blood hemoglobin measurement (mass/volume)Ordered By: Renard Burgos on 03-13-2023 Hemoglobin (Bld) [Mass/Vol] 13.4 g/dL 13.0-16.5 [facility] Blood lymphocytes/100 leukoc ytesOrdered By: Renard Burgos on 03-13-2023 Lymphocytes/100 WBC (Bld) 27.7 % 19-41 [facility] Blood monocytes/100 leukocyt esOrdered By: Renard Burgos on 03-13-2023 Monocytes/100 WBC (Bld) 9.5 % 0-10 [facility] Blood platelet mean volumeOr dered By: Renard Burgos on 03-13-2023 Platelet mean volume (Bld) [Entitic vol] 10.6 fL 6.2-12.0 [facility] Determination of erythrocyte mean corpuscular volume (MCV)Ordered By: Renard Burgos on 03-13-2023 MCV (RBC) [Entitic vol] 93.4 fL 80-94 [facility] Hematocrit Auto (Bld) [Volum e fraction]Ordered By: Renard Burgos on 03-13-2023 Hematocrit (Bld) [Volume fraction] 42.5 % 40-54 [facility] Laboratory - Hematology and Cell countsOrdered By: Renard Burgos on 03-13-2023 Erythrocyte distribution width (RBC) [Entitic vol] 44.1 fL 35.1-43.9 [facility] Erythrocyte distribution width (RBC) [Ratio] 13.0 % 11.6-14.6 [facility] Immature granulocytes/100 WBC (Bld) 0.500 % 0.0-0.9 [facility] Comment on above: IG% - Immature Granu locytes (promyelocytes, myelocytes and metamyelocytes) > 1% indicates that a LEFT SHIFT is Present. MCH (RBC) [Entitic mass] 29.5 pg 27.0-32.0 [facility] Nucleated RBC/100 WBC (Bld) [Ratio] 0 % 0-5 [facility] MCHC Auto (RBC) [Mass/Vol]Or dered By: Renard Burgos on 03-13-2023 MCHC (RBC) [Mass/Vol] 31.5 g/dL 32-36 [facility] Platelets bldOrdered By: Lyubov Burgos on 03-13-2023 Platelets (Bld) [#/Vol] 200 10*3/uL 150-450 [facility] Absolute lymphocyte countOrd ered By: Renard Burgos on 03-06-2023 Lymphocytes Auto (Unsp spec) [#/Vol] 1.80 10*3/uL 0.83-4.51 [facility] Basophil percentageOrdered B y: Renard Burgos on 03-06-2023 Basophils/100 WBC (Bld) 0.5 % 0-1 [facility] Bilirubin [Mass/Vol] 0.40 mg/dL 0.20-1.00 [facility] Comment on above: For patients on eltr ombopag therapy, use of Dimension Bozman TBIL is not recommended. Chloride [Moles/Vol] 107 mmol/L 98-107 [facility] Cholesterol [Mass/Vol] 118 mg/dL <200 [facility] Comment on above: <200 mg/dL Desirable 200-240 mg/dL Borderline >240 mg/dL High Risk Eosinophils/100 WBC (Bld) 0.5 % 0-5 [facility] Glucose [Mass/Vol] 107 mg/dL 74-106 [facility] Comment on above: Fasting Glucose resu lt from 100 to 125 mg/dL suggests IMPAIRED HOMEOSTASIS per A.D.A. criteria. Neutrophils (Bld) [#/Vol] 5.5 10*3/uL 2.0-7.7 [facility] Neutrophils/100 WBC (Bld) 68.0 % 47-70 [facility] Potassium [Moles/Vol] 3.8 mmol/L 3.5-5.1 [facility] Protein [Mass/Vol] 6.3 g/dL 6.4-8.2 [facility] Sodium [Moles/Vol] 141 mmol/L 136-145 [facility] Triglyceride [Mass/Vol] 185 mg/dL <199 [facility] Comment on above: The drugs N-Acetylcy steine and Metamizole may falsely depress this assay.Serum Triglycerides Reference Interval Normal <150 mg/dL Borderline high 150 - 199 mg/dL High 200 - 499 mg/dL Very High > or = 500 mg/dL WBC (Bld) [#/Vol] 8.1 10*3/uL 4.4-11.0 [facility] Blood erythrocytes count (nu mber/volume)Ordered By: Renard Burgos on 03-06-2023 RBC (Bld) [#/Vol] 4.69 10*6/uL 4.6-6.2 [facility] Blood hemoglobin measurement (mass/volume)Ordered By: Renard Burgos on 03-06-2023 Hemoglobin (Bld) [Mass/Vol] 14.0 g/dL 13.0-16.5 [facility] Blood lymphocytes/100 leukoc ytesOrdered By: Renard Burgos on 03-06-2023 Lymphocytes/100 WBC (Bld) 22.3 % 19-41 [facility] Blood monocytes/100 leukocyt esOrdered By: Renard Burgos on 03-06-2023 Monocytes/100 WBC (Bld) 8.2 % 0-10 [facility] Blood platelet mean volumeOr dered By: Renard Burgos on 03-06-2023 Platelet mean volume (Bld) [Entitic vol] 10.9 fL 6.2-12.0 [facility] Determination of erythrocyte mean corpuscular volume (MCV)Ordered By: Renard Burgos on 03-06-2023 MCV (RBC) [Entitic vol] 91.9 fL 80-94 [facility] Hematocrit Auto (Bld) [Volum e fraction]Ordered By: Renard Burgos on 03-06-2023 Hematocrit (Bld) [Volume fraction] 43.1 % 40-54 [facility] Laboratory - Chemistry and C hemistry - challengeOrdered By: Renard Burgos on 03-06-2023 ALP [Catalytic activity/Vol] 120 U/L 45-117 [facility] ALT [Catalytic activity/Vol] 20 U/L 16-61 [facility] CO2 [Moles/Vol] 30.0 mmol/L 21.0-32.0 [facility] Globulin (S) [Mass/Vol] 3.3 g/dL 2.2-4.2 [facility] Urea nitrogen/Creatinine [Mass ratio] 27.1 mg/mg 10-20 [facility] Laboratory - Hematology and Cell countsOrdered By: Renard Burgos on 03-06-2023 Erythrocyte distribution width (RBC) [Entitic vol] 42.5 fL 35.1-43.9 [facility] Erythrocyte distribution width (RBC) [Ratio] 12.9 % 11.6-14.6 [facility] Immature granulocytes/100 WBC (Bld) 0.500 % 0.0-0.9 [facility] Comment on above: IG% - Immature Granu locytes (promyelocytes, myelocytes and metamyelocytes) > 1% indicates that a LEFT SHIFT is Present. MCH (RBC) [Entitic mass] 29.9 pg 27.0-32.0 [facility] Nucleated RBC/100 WBC (Bld) [Ratio] 0 % 0-5 [facility] MCHC Auto (RBC) [Mass/Vol]Or dered By: Renard Burgos on 03-06-2023 MCHC (RBC) [Mass/Vol] 32.5 g/dL 32-36 [facility] No Panel InformationOrdered By: Renard Burgos on 03-06-2023 Estimated GFR (MDRD) Amer 165 mL/min >60 [facility] Comment on above: GFR Calc Estimated GFR (MDRD) Non-Af Amer 136 mL/min >60 [facility] Comment on above: Non- GFR Calc Platelets bldOrdered By: Lyubov Burgos on 03-06-2023 Platelets (Bld) [#/Vol] 232 10*3/uL 150-450 [facility] Serum or plasma albumin gordy urement (mass/volume)Ordered By: Renard Burgos on 03-06-2023 Albumin [Mass/Vol] 3.0 g/dL 3.2-5.0 [facility] Serum or plasma albumin/glob ulin mass ratioOrdered By: Renard Burgos on 03-06-2023 Albumin/Globulin [Mass ratio] 0.9 {ratio} 0.9-2.4 [facility] Serum or plasma calcium gordy urement (mass/volume)Ordered By: Renard Burgos on 03-06-2023 Calcium [Mass/Vol] 8.2 mg/dL 8.5-10.1 [facility] Serum or plasma cholesterol in HDL measurement (mass/volume)Ordered By: Renard Burgos on 03-06-2023 Cholesterol in HDL [Mass/Vol] 25 mg/dL >40 [facility] Comment on above: The drugs N-Acetylcy steine and Metamizole may falsely depress this assay. Reference Range HDL <40 mg/dL Low HDL Cholesterol HDL >or= 60 mg/dL High HDL Cholesterol Serum or plasma cholesterol in VLDL measurement (mass/volume)Ordered By: Renard Burgos on 03-06-2023 Cholesterol in VLDL [Mass/Vol] 37 mg/dL 5-40 [facility] Serum or plasma creatinine m easurement (mass/volume)Ordered By: Renard Burgos on 03-06-2023 Creatinine [Mass/Vol] 0.63 mg/dL 0.70-1.30 [facility] Comment on above: The validity of the calculated GFR & GFRAA in patients over 70 years has not been determined. Clinical correlation is essential. Serum or plasma low density lipoprotein (LDL) cholesterol measurement (mass/volume)Ordered By: Renard Burgos on 03-06-2023 Cholesterol in LDL [Mass/Vol] 56 mg/dL 0-130 [facility] Serum or plasma urea nitroge n measurement (mass/volume)Ordered By: Renard Burgos on 03-06-2023 Urea nitrogen [Mass/Vol] 17 mg/dL 7-18 [facility] Thin prep Papanicolaou smear with manual screeningOrdered By: Renard Burgos on 03-06-2023 Thin prep Papanicolaou smear with manual screening 10 U/L 15-37 [facility] Thin prep Papanicolaou smear with manual screening 4 5-15 [facility] Absolute lymphocyte countOrd ered By: Renard Burgos on 02-27-2023 Lymphocytes Auto (Unsp spec) [#/Vol] 2.13 10*3/uL 0.83-4.51 [facility] Basophil percentageOrdered B y: Renard Burgos on 02-27-2023 Basophils/100 WBC (Bld) 0.6 % 0-1 [facility] Eosinophils/100 WBC (Bld) 0.6 % 0-5 [facility] Neutrophils (Bld) [#/Vol] 5.1 10*3/uL 2.0-7.7 [facility] Neutrophils/100 WBC (Bld) 63.3 % 47-70 [facility] WBC (Bld) [#/Vol] 8.1 10*3/uL 4.4-11.0 [facility] Blood erythrocytes count (nu mber/volume)Ordered By: Renard Burgos on 02-27-2023 RBC (Bld) [#/Vol] 4.54 10*6/uL 4.6-6.2 [facility] Blood hemoglobin measurement (mass/volume)Ordered By: Renard Burgos on 02-27-2023 Hemoglobin (Bld) [Mass/Vol] 13.7 g/dL 13.0-16.5 [facility] Blood lymphocytes/100 leukoc ytesOrdered By: Renard Burgos on 02-27-2023 Lymphocytes/100 WBC (Bld) 26.4 % 19-41 [facility] Blood monocytes/100 leukocyt esOrdered By: Renard Burgos on 02-27-2023 Monocytes/100 WBC (Bld) 8.7 % 0-10 [facility] Blood platelet mean volumeOr dered By: Renard Burgos on 02-27-2023 Platelet mean volume (Bld) [Entitic vol] 10.8 fL 6.2-12.0 [facility] Determination of erythrocyte mean corpuscular volume (MCV)Ordered By: Renard Burgos on 02-27-2023 MCV (RBC) [Entitic vol] 89.9 fL 80-94 [facility] Hematocrit Auto (Bld) [Volum e fraction]Ordered By: Renard Burgos on 02-27-2023 Hematocrit (Bld) [Volume fraction] 40.8 % 40-54 [facility] Laboratory - Hematology and Cell countsOrdered By: Renard Burgos on 02-27-2023 Erythrocyte distribution width (RBC) [Entitic vol] 41.0 fL 35.1-43.9 [facility] Erythrocyte distribution width (RBC) [Ratio] 12.5 % 11.6-14.6 [facility] Immature granulocytes/100 WBC (Bld) 0.400 % 0.0-0.9 [facility] Comment on above: IG% - Immature Granu locytes (promyelocytes, myelocytes and metamyelocytes) > 1% indicates that a LEFT SHIFT is Present. MCH (RBC) [Entitic mass] 30.2 pg 27.0-32.0 [facility] Nucleated RBC/100 WBC (Bld) [Ratio] 0 % 0-5 [facility] MCHC Auto (RBC) [Mass/Vol]Or dered By: Renard Burgos on 02-27-2023 MCHC (RBC) [Mass/Vol] 33.6 g/dL 32-36 [facility] Platelets bldOrdered By: Lyubov Burgos on 02-27-2023 Platelets (Bld) [#/Vol] 182 10*3/uL 150-450 [facility] Absolute lymphocyte countOrd ered By: Renard Burgos on 02-20-2023 Lymphocytes Auto (Unsp spec) [#/Vol] 2.23 10*3/uL 0.83-4.51 [facility] Basophil percentageOrdered B y: Renard Burgos on 02-20-2023 Basophils/100 WBC (Bld) 0.3 % 0-1 [facility] Eosinophils/100 WBC (Bld) 0.7 % 0-5 [facility] Neutrophils (Bld) [#/Vol] 5.9 10*3/uL 2.0-7.7 [facility] Neutrophils/100 WBC (Bld) 65.7 % 47-70 [facility] WBC (Bld) [#/Vol] 9.0 10*3/uL 4.4-11.0 [facility] Blood erythrocytes count (nu mber/volume)Ordered By: Renard Burgos on 02-20-2023 RBC (Bld) [#/Vol] 4.46 10*6/uL 4.6-6.2 [facility] Blood hemoglobin measurement (mass/volume)Ordered By: Renard Burgos on 02-20-2023 Hemoglobin (Bld) [Mass/Vol] 13.3 g/dL 13.0-16.5 [facility] Blood lymphocytes/100 leukoc ytesOrdered By: Renard Burgos on 02-20-2023 Lymphocytes/100 WBC (Bld) 24.7 % 19-41 [facility] Blood monocytes/100 leukocyt esOrdered By: Renard Burgos on 02-20-2023 Monocytes/100 WBC (Bld) 8.0 % 0-10 [facility] Blood platelet mean volumeOr dered By: Renard Burgos on 02-20-2023 Platelet mean volume (Bld) [Entitic vol] 10.7 fL 6.2-12.0 [facility] Determination of erythrocyte mean corpuscular volume (MCV)Ordered By: Renard Burgos on 02-20-2023 MCV (RBC) [Entitic vol] 90.6 fL 80-94 [facility] Hematocrit Auto (Bld) [Volum e fraction]Ordered By: Renard Burgos on 02-20-2023 Hematocrit (Bld) [Volume fraction] 40.4 % 40-54 [facility] Laboratory - Hematology and Cell countsOrdered By: Renard Burgos on 02-20-2023 Erythrocyte distribution width (RBC) [Entitic vol] 41.9 fL 35.1-43.9 [facility] Erythrocyte distribution width (RBC) [Ratio] 12.8 % 11.6-14.6 [facility] Immature granulocytes/100 WBC (Bld) 0.600 % 0.0-0.9 [facility] Comment on above: IG% - Immature Granu locytes (promyelocytes, myelocytes and metamyelocytes) > 1% indicates that a LEFT SHIFT is Present. MCH (RBC) [Entitic mass] 29.8 pg 27.0-32.0 [facility] Nucleated RBC/100 WBC (Bld) [Ratio] 0 % 0-5 [facility] MCHC Auto (RBC) [Mass/Vol]Or dered By: Renard Burgos on 02-20-2023 MCHC (RBC) [Mass/Vol] 32.9 g/dL 32-36 [facility] Platelets bldOrdered By: Lyubov Burgos on 02-20-2023 Platelets (Bld) [#/Vol] 220 10*3/uL 150-450 [facility] Absolute lymphocyte countOrd ered By: Renard Burgos on 02-13-2023 Lymphocytes Auto (Unsp spec) [#/Vol] 2.01 10*3/uL 0.83-4.51 [facility] Basophil percentageOrdered B y: Renard Burgos on 02-13-2023 Basophils/100 WBC (Bld) 0.7 % 0-1 [facility] Eosinophils/100 WBC (Bld) 0.5 % 0-5 [facility] Neutrophils (Bld) [#/Vol] 4.7 10*3/uL 2.0-7.7 [facility] Neutrophils/100 WBC (Bld) 63.3 % 47-70 [facility] WBC (Bld) [#/Vol] 7.4 10*3/uL 4.4-11.0 [facility] Blood erythrocytes count (nu mber/volume)Ordered By: Renard Burgos on 02-13-2023 RBC (Bld) [#/Vol] 4.46 10*6/uL 4.6-6.2 [facility] Blood hemoglobin measurement (mass/volume)Ordered By: Renard Burgos on 02-13-2023 Hemoglobin (Bld) [Mass/Vol] 13.6 g/dL 13.0-16.5 [facility] Blood lymphocytes/100 leukoc ytesOrdered By: Renard Burgos on 02-13-2023 Lymphocytes/100 WBC (Bld) 27.0 % 19-41 [facility] Blood monocytes/100 leukocyt esOrdered By: Renard Burgos on 02-13-2023 Monocytes/100 WBC (Bld) 8.1 % 0-10 [facility] Blood platelet mean volumeOr dered By: Renard Burgos on 02-13-2023 Platelet mean volume (Bld) [Entitic vol] 10.7 fL 6.2-12.0 [facility] Determination of erythrocyte mean corpuscular volume (MCV)Ordered By: Renard Burgos on 02-13-2023 MCV (RBC) [Entitic vol] 92.6 fL 80-94 [facility] Hematocrit Auto (Bld) [Volum e fraction]Ordered By: Renard Burgos on 02-13-2023 Hematocrit (Bld) [Volume fraction] 41.3 % 40-54 [facility] Laboratory - Hematology and Cell countsOrdered By: Renard Burgos on 02-13-2023 Erythrocyte distribution width (RBC) [Entitic vol] 42.7 fL 35.1-43.9 [facility] Erythrocyte distribution width (RBC) [Ratio] 12.6 % 11.6-14.6 [facility] Immature granulocytes/100 WBC (Bld) 0.400 % 0.0-0.9 [facility] Comment on above: IG% - Immature Granu locytes (promyelocytes, myelocytes and metamyelocytes) > 1% indicates that a LEFT SHIFT is Present. MCH (RBC) [Entitic mass] 30.5 pg 27.0-32.0 [facility] Nucleated RBC/100 WBC (Bld) [Ratio] 0 % 0-5 [facility] MCHC Auto (RBC) [Mass/Vol]Or dered By: Renard Burgos on 02-13-2023 MCHC (RBC) [Mass/Vol] 32.9 g/dL 32-36 [facility] Platelets bldOrdered By: Lyubov Burgos on 02-13-2023 Platelets (Bld) [#/Vol] 187 10*3/uL 150-450 [facility] Absolute lymphocyte countOrd ered By: Renard Burgos on 02-06-2023 Lymphocytes Auto (Unsp spec) [#/Vol] 2.28 10*3/uL 0.83-4.51 [facility] Basophil percentageOrdered B y: Renard Burgos on 02-06-2023 Basophils/100 WBC (Bld) 0.5 % 0-1 [facility] Eosinophils/100 WBC (Bld) 0.7 % 0-5 [facility] Neutrophils (Bld) [#/Vol] 5.5 10*3/uL 2.0-7.7 [facility] Neutrophils/100 WBC (Bld) 63.7 % 47-70 [facility] WBC (Bld) [#/Vol] 8.6 10*3/uL 4.4-11.0 [facility] Blood erythrocytes count (nu mber/volume)Ordered By: Renard Burgos on 02-06-2023 RBC (Bld) [#/Vol] 4.71 10*6/uL 4.6-6.2 [facility] Blood hemoglobin measurement (mass/volume)Ordered By: Renard Burgos on 02-06-2023 Hemoglobin (Bld) [Mass/Vol] 14.1 g/dL 13.0-16.5 [facility] Blood lymphocytes/100 leukoc ytesOrdered By: Renard Burgos on 02-06-2023 Lymphocytes/100 WBC (Bld) 26.4 % 19-41 [facility] Blood monocytes/100 leukocyt esOrdered By: Renard Burgos on 02-06-2023 Monocytes/100 WBC (Bld) 8.2 % 0-10 [facility] Blood platelet mean volumeOr dered By: Renard Burgos on 02-06-2023 Platelet mean volume (Bld) [Entitic vol] 11.0 fL 6.2-12.0 [facility] Determination of erythrocyte mean corpuscular volume (MCV)Ordered By: Renard Burgos on 02-06-2023 MCV (RBC) [Entitic vol] 94.5 fL 80-94 [facility] Hematocrit Auto (Bld) [Volum e fraction]Ordered By: Renard Burgos on 02-06-2023 Hematocrit (Bld) [Volume fraction] 44.5 % 40-54 [facility] Laboratory - Hematology and Cell countsOrdered By: Renard Burgos on 02-06-2023 Erythrocyte distribution width (RBC) [Entitic vol] 43.5 fL 35.1-43.9 [facility] Erythrocyte distribution width (RBC) [Ratio] 12.7 % 11.6-14.6 [facility] Immature granulocytes/100 WBC (Bld) 0.500 % 0.0-0.9 [facility] Comment on above: IG% - Immature Granu locytes (promyelocytes, myelocytes and metamyelocytes) > 1% indicates that a LEFT SHIFT is Present. MCH (RBC) [Entitic mass] 29.9 pg 27.0-32.0 [facility] Nucleated RBC/100 WBC (Bld) [Ratio] 0 % 0-5 [facility] MCHC Auto (RBC) [Mass/Vol]Or dered By: Renard Burgos on 02-06-2023 MCHC (RBC) [Mass/Vol] 31.7 g/dL 32-36 [facility] Platelets bldOrdered By: Lyubov Burgos on 02-06-2023 Platelets (Bld) [#/Vol] 196 10*3/uL 150-450 [facility] Absolute lymphocyte countOrd ered By: Renard Burgos on 01-30-2023 Lymphocytes Auto (Unsp spec) [#/Vol] 1.91 10*3/uL 0.83-4.51 [facility] Basophil percentageOrdered B y: Renard Burgos on 01-30-2023 Basophils/100 WBC (Bld) 0.5 % 0-1 [facility] Eosinophils/100 WBC (Bld) 0.5 % 0-5 [facility] Neutrophils (Bld) [#/Vol] 6.0 10*3/uL 2.0-7.7 [facility] Neutrophils/100 WBC (Bld) 69.4 % 47-70 [facility] WBC (Bld) [#/Vol] 8.7 10*3/uL 4.4-11.0 [facility] Basophil percentage 0 SEEN /hpf 0-5 [facility] Bilirubin Test strip Ql (U)O rdered By: Renard Burgos on 01-30-2023 Bilirubin Ql (U) Negative Negative [facility] Blood erythrocytes count (nu mber/volume)Ordered By: Renard Burgos on 01-30-2023 RBC (Bld) [#/Vol] 4.50 10*6/uL 4.6-6.2 [facility] Blood hemoglobin measurement (mass/volume)Ordered By: Renard Burgos on 01-30-2023 Hemoglobin (Bld) [Mass/Vol] 13.5 g/dL 13.0-16.5 [facility] Blood lymphocytes/100 leukoc ytesOrdered By: Renard Burgos on 01-30-2023 Lymphocytes/100 WBC (Bld) 22.1 % 19-41 [facility] Blood monocytes/100 leukocyt esOrdered By: Renard Burgos on 01-30-2023 Monocytes/100 WBC (Bld) 7.2 % 0-10 [facility] Blood platelet mean volumeOr dered By: Renard Burgos on 01-30-2023 Platelet mean volume (Bld) [Entitic vol] 11.1 fL 6.2-12.0 [facility] Culture, urineOrdered By: Garrick Bhatt on 01-30-2023 Bacteria identified Cx Nom (U) Positive [facility] Determination of erythrocyte mean corpuscular volume (MCV)Ordered By: Renard Burgos on 01-30-2023 MCV (RBC) [Entitic vol] 91.3 fL 80-94 [facility] Hematocrit Auto (Bld) [Volum e fraction]Ordered By: Renard Burgos on 01-30-2023 Hematocrit (Bld) [Volume fraction] 41.1 % 40-54 [facility] Ketones Test strip Ql (U)Ord ered By: Renard Burgos on 01-30-2023 Ketones Ql (U) Negative Negative [facility] Laboratory - Hematology and Cell countsOrdered By: Renard Burgos on 01-30-2023 Erythrocyte distribution width (RBC) [Entitic vol] 41.4 fL 35.1-43.9 [facility] [facility] Erythrocyte distribution width (RBC) [Ratio] 12.6 % 11.6-14.6 [facility] Immature granulocytes/100 WBC (Bld) 0.300 % 0.0-0.9 [facility] Comment on above: IG% - Immature Granu locytes (promyelocytes, myelocytes and metamyelocytes) > 1% indicates that a LEFT SHIFT is Present. MCH (RBC) [Entitic mass] 30.0 pg 27.0-32.0 [facility] Nucleated RBC/100 WBC (Bld) [Ratio] 0 % 0-5 [facility] MCHC Auto (RBC) [Mass/Vol]Or dered By: Renard Burgos on 01-30-2023 MCHC (RBC) [Mass/Vol] 32.8 g/dL 32-36 [facility] Mucus LM Ql (Urine sed)Order ed By: Renard Burgos on 01-30-2023 Mucus Ql (Urine sed) 0 SEEN /hpf [facility] Nitrite Test strip Ql (U)Ord ered By: Renard Burgos on 01-30-2023 Nitrite Ql (U) Negative Negative [facility] No Panel InformationOrdered By: Renard Burgos on 01-30-2023 Prostate Specific Antigen Screen 4.18 ng/mL 0.00-4.00 [facility] Comment on above: This test was perfor med using the TPSA assay method for the[employer] chemistry system. Values obtained with differentassay methods cannot be used interchangably.When changing PSA assays in the course of monitoring apatient, additional sequential testing should be carriedout to confirm baseline values. Platelets bldOrdered By: Lyubov Burgos on 01-30-2023 Platelets (Bld) [#/Vol] 205 10*3/uL 150-450 [facility] Protein Test strip Ql (U)Ord ered By: Renard Burgos on 01-30-2023 Protein Ql (U) Negative Negative [facility] Squamous epithelial cells de tection in urine sediment by light microscopyOrdered By: Renard Burgos on 01-30-2023 Epithelial cells.squamous LM Ql (Urine sed) 0-5 SEEN /hpf 0-5 [facility] Urine blood detectionOrdered By: Renard Burgos on 01-30-2023 RBC Ql (U) Negative Negative [facility] RBC Ql (U) 0 SEEN /hpf 0-5 [facility] Urine clarityOrdered By: Lyubov Burgos on 01-30-2023 Clarity (U) Clear Clear [facility] Urine color determinationOrd ered By: Renard Burgos on 01-30-2023 Color (U) Yellow Yellow [facility] Urine glucose detectionOrder ed By: Renard Burgos on 01-30-2023 Glucose Ql (U) Normal mg/dl Normal [facility] Urine leukocyte esterase det ection by dipstickOrdered By: Renard Burgos on 01-30-2023 Leukocyte esterase Test strip Ql (U) Negative Negative [facility] Urine pHOrdered By: Renard ocampo on 01-30-2023 pH (U) 8.0 [pH] 5.0 - 8.0 [facility] Urine sediment bacteria coun t by microscopy (number/high power field)Ordered By: Renard Burgos on 01-30-2023 Bacteria LM.HPF (Urine sed) [#/Area] 0 /[HPF] None Seen [facility] Urine specific gravity measu rementOrdered By: Renard Burgos on 01-30-2023 Specific gravity (U) [Rel density] 1.010 1.002-1.030 [facility] Urobilinogen Auto test strip Ql (U)Ordered By: Renard Burgos on 01-30-2023 Urobilinogen Ql (U) Normal mg/dl Normal [facility] Absolute lymphocyte countOrd ered By: Renard Burgos on 01-23-2023 Lymphocytes Auto (Unsp spec) [#/Vol] 2.32 10*3/uL 0.83-4.51 [facility] Basophil percentageOrdered B y: Renard Burgos on 01-23-2023 Basophils/100 WBC (Bld) 0.6 % 0-1 [facility] Eosinophils/100 WBC (Bld) 0.4 % 0-5 [facility] Neutrophils (Bld) [#/Vol] 5.3 10*3/uL 2.0-7.7 [facility] Neutrophils/100 WBC (Bld) 62.7 % 47-70 [facility] WBC (Bld) [#/Vol] 8.4 10*3/uL 4.4-11.0 [facility] Blood erythrocytes count (nu mber/volume)Ordered By: Renard Burgos on 01-23-2023 RBC (Bld) [#/Vol] 4.49 10*6/uL 4.6-6.2 [facility] Blood hemoglobin measurement (mass/volume)Ordered By: Renard Burgos on 01-23-2023 Hemoglobin (Bld) [Mass/Vol] 13.6 g/dL 13.0-16.5 [facility] Blood lymphocytes/100 leukoc ytesOrdered By: Renard Burgos on 01-23-2023 Lymphocytes/100 WBC (Bld) 27.5 % 19-41 [facility] Blood monocytes/100 leukocyt esOrdered By: Renard Burgos on 01-23-2023 Monocytes/100 WBC (Bld) 8.2 % 0-10 [facility] Blood platelet mean volumeOr dered By: Renard Burgos on 01-23-2023 Platelet mean volume (Bld) [Entitic vol] 10.9 fL 6.2-12.0 [facility] Determination of erythrocyte mean corpuscular volume (MCV)Ordered By: Renard Burgos on 01-23-2023 MCV (RBC) [Entitic vol] 93.1 fL 80-94 [facility] Hematocrit Auto (Bld) [Volum e fraction]Ordered By: Renard Burgos on 01-23-2023 Hematocrit (Bld) [Volume fraction] 41.8 % 40-54 [facility] Laboratory - Hematology and Cell countsOrdered By: Renard Burgos on 01-23-2023 Erythrocyte distribution width (RBC) [Entitic vol] 42.7 fL 35.1-43.9 [facility] Erythrocyte distribution width (RBC) [Ratio] 12.6 % 11.6-14.6 [facility] Immature granulocytes/100 WBC (Bld) 0.600 % 0.0-0.9 [facility] Comment on above: IG% - Immature Granu locytes (promyelocytes, myelocytes and metamyelocytes) > 1% indicates that a LEFT SHIFT is Present. MCH (RBC) [Entitic mass] 30.3 pg 27.0-32.0 [facility] Nucleated RBC/100 WBC (Bld) [Ratio] 0 % 0-5 [facility] MCHC Auto (RBC) [Mass/Vol]Or dered By: Renard Burgos on 01-23-2023 MCHC (RBC) [Mass/Vol] 32.5 g/dL 32-36 [facility] Platelets bldOrdered By: Lyubov medel Loretta on 01-23-2023 Platelets (Bld) [#/Vol] 220 10*3/uL 150-450 [facility] Absolute lymphocyte countOrd ered By: Renard Burgos on 01-16-2023 Lymphocytes Auto (Unsp spec) [#/Vol] 1.80 10*3/uL 0.83-4.51 [facility] Basophil percentageOrdered B y: Renard Burgos on 01-16-2023 Basophils/100 WBC (Bld) 0.4 % 0-1 [facility] Eosinophils/100 WBC (Bld) 0.4 % 0-5 [facility] Neutrophils (Bld) [#/Vol] 7.2 10*3/uL 2.0-7.7 [facility] Neutrophils/100 WBC (Bld) 73.5 % 47-70 [facility] WBC (Bld) [#/Vol] 9.8 10*3/uL 4.4-11.0 [facility] Blood erythrocytes count (nu mber/volume)Ordered By: Renard Burgos on 01-16-2023 RBC (Bld) [#/Vol] 4.77 10*6/uL 4.6-6.2 [facility] Blood hemoglobin measurement (mass/volume)Ordered By: Renard Burgos on 01-16-2023 Hemoglobin (Bld) [Mass/Vol] 14.1 g/dL 13.0-16.5 [facility] Blood lymphocytes/100 leukoc ytesOrdered By: Renard Burgos on 01-16-2023 Lymphocytes/100 WBC (Bld) 18.4 % 19-41 [facility] Blood monocytes/100 leukocyt esOrdered By: Renard Burgos on 01-16-2023 Monocytes/100 WBC (Bld) 6.9 % 0-10 [facility] Blood platelet mean volumeOr dered By: Renard Burgos on 01-16-2023 Platelet mean volume (Bld) [Entitic vol] 10.6 fL 6.2-12.0 [facility] Determination of erythrocyte mean corpuscular volume (MCV)Ordered By: Renard Burgos on 01-16-2023 MCV (RBC) [Entitic vol] 92.5 fL 80-94 [facility] Hematocrit Auto (Bld) [Volum e fraction]Ordered By: Renard Burgos on 01-16-2023 Hematocrit (Bld) [Volume fraction] 44.1 % 40-54 [facility] Laboratory - Hematology and Cell countsOrdered By: Renard Burgos on 01-16-2023 Erythrocyte distribution width (RBC) [Entitic vol] 41.8 fL 35.1-43.9 [facility] Erythrocyte distribution width (RBC) [Ratio] 12.4 % 11.6-14.6 [facility] Immature granulocytes/100 WBC (Bld) 0.400 % 0.0-0.9 [facility] Comment on above: IG% - Immature Granu locytes (promyelocytes, myelocytes and metamyelocytes) > 1% indicates that a LEFT SHIFT is Present. MCH (RBC) [Entitic mass] 29.6 pg 27.0-32.0 [facility] Nucleated RBC/100 WBC (Bld) [Ratio] 0 % 0-5 [facility] MCHC Auto (RBC) [Mass/Vol]Or dered By: Renard Burgos on 01-16-2023 MCHC (RBC) [Mass/Vol] 32.0 g/dL 32-36 [facility] Platelets bldOrdered By: Lyubov Burgos on 01-16-2023 Platelets (Bld) [#/Vol] 221 10*3/uL 150-450 [facility] Absolute lymphocyte countOrd ered By: Renard Burgos on 01-09-2023 Lymphocytes Auto (Unsp spec) [#/Vol] 2.41 10*3/uL 0.83-4.51 [facility] Basophil percentageOrdered B y: Renard Burgos on 01-09-2023 Basophils/100 WBC (Bld) 0.7 % 0-1 [facility] Eosinophils/100 WBC (Bld) 0.8 % 0-5 [facility] Neutrophils (Bld) [#/Vol] 5.4 10*3/uL 2.0-7.7 [facility] Neutrophils/100 WBC (Bld) 60.5 % 47-70 [facility] WBC (Bld) [#/Vol] 8.9 10*3/uL 4.4-11.0 [facility] Blood erythrocytes count (nu mber/volume)Ordered By: Renard Burgos on 01-09-2023 RBC (Bld) [#/Vol] 4.56 10*6/uL 4.6-6.2 [facility] Blood hemoglobin measurement (mass/volume)Ordered By: Renard Burgos on 01-09-2023 Hemoglobin (Bld) [Mass/Vol] 13.8 g/dL 13.0-16.5 [facility] Blood lymphocytes/100 leukoc ytesOrdered By: Renard Burgos on 01-09-2023 Lymphocytes/100 WBC (Bld) 27.0 % 19-41 [facility] Blood monocytes/100 leukocyt esOrdered By: Renard Burgos on 01-09-2023 Monocytes/100 WBC (Bld) 10.7 % 0-10 [facility] Blood platelet mean volumeOr dered By: Renard Burgos on 01-09-2023 Platelet mean volume (Bld) [Entitic vol] 10.8 fL 6.2-12.0 [facility] Determination of erythrocyte mean corpuscular volume (MCV)Ordered By: Renard Burgos on 01-09-2023 MCV (RBC) [Entitic vol] 92.5 fL 80-94 [facility] Hematocrit Auto (Bld) [Volum e fraction]Ordered By: Renard Burgos on 01-09-2023 Hematocrit (Bld) [Volume fraction] 42.2 % 40-54 [facility] Laboratory - Hematology and Cell countsOrdered By: Renard Burgos on 01-09-2023 Erythrocyte distribution width (RBC) [Entitic vol] 42.7 fL 35.1-43.9 [facility] Erythrocyte distribution width (RBC) [Ratio] 12.5 % 11.6-14.6 [facility] Immature granulocytes/100 WBC (Bld) 0.300 % 0.0-0.9 [facility] Comment on above: IG% - Immature Granu locytes (promyelocytes, myelocytes and metamyelocytes) > 1% indicates that a LEFT SHIFT is Present. MCH (RBC) [Entitic mass] 30.3 pg 27.0-32.0 [facility] Nucleated RBC/100 WBC (Bld) [Ratio] 0 % 0-5 [facility] MCHC Auto (RBC) [Mass/Vol]Or dered By: Renard Burgos on 01-09-2023 MCHC (RBC) [Mass/Vol] 32.7 g/dL 32-36 [facility] Platelets bldOrdered By: Lyubov Burgos on 01-09-2023 Platelets (Bld) [#/Vol] 209 10*3/uL 150-450 [facility] Absolute lymphocyte countOrd ered By: Renard Burgos on 01-03-2023 Lymphocytes Auto (Unsp spec) [#/Vol] 2.18 10*3/uL 0.83-4.51 [facility] Basophil percentageOrdered B y: Renard Burgos on 01-03-2023 Basophils/100 WBC (Bld) 0.6 % 0-1 [facility] Eosinophils/100 WBC (Bld) 0.5 % 0-5 [facility] Neutrophils (Bld) [#/Vol] 5.4 10*3/uL 2.0-7.7 [facility] Neutrophils/100 WBC (Bld) 64.2 % 47-70 [facility] WBC (Bld) [#/Vol] 8.4 10*3/uL 4.4-11.0 [facility] Blood erythrocytes count (nu mber/volume)Ordered By: Renard Burgos on 01-03-2023 RBC (Bld) [#/Vol] 4.59 10*6/uL 4.6-6.2 [facility] Blood hemoglobin measurement (mass/volume)Ordered By: Renard Burgos on 01-03-2023 Hemoglobin (Bld) [Mass/Vol] 13.9 g/dL 13.0-16.5 [facility] Blood lymphocytes/100 leukoc ytesOrdered By: Renard Burgos on 01-03-2023 Lymphocytes/100 WBC (Bld) 25.9 % 19-41 [facility] Blood monocytes/100 leukocyt esOrdered By: Renard Burgos on 01-03-2023 Monocytes/100 WBC (Bld) 8.3 % 0-10 [facility] Blood platelet mean volumeOr dered By: Renard Burgos on 01-03-2023 Platelet mean volume (Bld) [Entitic vol] 11.0 fL 6.2-12.0 [facility] Determination of erythrocyte mean corpuscular volume (MCV)Ordered By: Renard Burgos on 01-03-2023 MCV (RBC) [Entitic vol] 92.8 fL 80-94 [facility] Hematocrit Auto (Bld) [Volum e fraction]Ordered By: Renard Burgos on 01-03-2023 Hematocrit (Bld) [Volume fraction] 42.6 % 40-54 [facility] Laboratory - Hematology and Cell countsOrdered By: Renard Burgos on 01-03-2023 Erythrocyte distribution width (RBC) [Entitic vol] 42.5 fL 35.1-43.9 [facility] Erythrocyte distribution width (RBC) [Ratio] 12.6 % 11.6-14.6 [facility] Immature granulocytes/100 WBC (Bld) 0.500 % 0.0-0.9 [facility] Comment on above: IG% - Immature Granu locytes (promyelocytes, myelocytes and metamyelocytes) > 1% indicates that a LEFT SHIFT is Present. MCH (RBC) [Entitic mass] 30.3 pg 27.0-32.0 [facility] Nucleated RBC/100 WBC (Bld) [Ratio] 0 % 0-5 [facility] MCHC Auto (RBC) [Mass/Vol]Or dered By: Renard Burgos on 01-03-2023 MCHC (RBC) [Mass/Vol] 32.6 g/dL 32-36 [facility] No Panel InformationOrdered By: Renard Burgos on 01-03-2023 Prostate Specific Antigen Screen 3.37 ng/mL 0.00-4.00 [facility] Comment on above: This test was perfor med using the TPSA assay method for the[facility] chemistry system. Values obtained with differentassay methods cannot be used interchangably.When changing PSA assays in the course of monitoring apatient, additional sequential testing should be carriedout to confirm baseline values. Platelets bldOrdered By: Lyubov Burgos on 01-03-2023 Platelets (Bld) [#/Vol] 200 10*3/uL 150-450 [facility] Absolute lymphocyte countOrd ered By: Renard Burgos on 12-26-2022 Lymphocytes Auto (Unsp spec) [#/Vol] 1.80 10*3/uL 0.83-4.51 [facility] Basophil percentageOrdered B y: Renard Burgos on 12-26-2022 Basophils/100 WBC (Bld) 0.4 % 0-1 [facility] Eosinophils/100 WBC (Bld) 0.6 % 0-5 [facility] Neutrophils (Bld) [#/Vol] 6.2 10*3/uL 2.0-7.7 [facility] Neutrophils/100 WBC (Bld) 69.8 % 47-70 [facility] WBC (Bld) [#/Vol] 8.9 10*3/uL 4.4-11.0 [facility] Blood erythrocytes count (nu mber/volume)Ordered By: Renard Burgos on 12-26-2022 RBC (Bld) [#/Vol] 4.58 10*6/uL 4.6-6.2 [facility] Blood hemoglobin measurement (mass/volume)Ordered By: Renard Burgos on 12-26-2022 Hemoglobin (Bld) [Mass/Vol] 14.0 g/dL 13.0-16.5 [facility] Blood lymphocytes/100 leukoc ytesOrdered By: Renard Burgos on 12-26-2022 Lymphocytes/100 WBC (Bld) 20.2 % 19-41 [facility] Blood monocytes/100 leukocyt esOrdered By: Renard Burgos on 12-26-2022 Monocytes/100 WBC (Bld) 8.6 % 0-10 [facility] Blood platelet mean volumeOr dered By: Renard Burgos on 12-26-2022 Platelet mean volume (Bld) [Entitic vol] 10.8 fL 6.2-12.0 [facility] Determination of erythrocyte mean corpuscular volume (MCV)Ordered By: Renard Burgos on 12-26-2022 MCV (RBC) [Entitic vol] 93.2 fL 80-94 [facility] Hematocrit Auto (Bld) [Volum e fraction]Ordered By: Renard Burgos on 12-26-2022 Hematocrit (Bld) [Volume fraction] 42.7 % 40-54 [facility] Laboratory - Hematology and Cell countsOrdered By: Renard Burgos on 12-26-2022 Erythrocyte distribution width (RBC) [Entitic vol] 42.5 fL 35.1-43.9 [facility] Erythrocyte distribution width (RBC) [Ratio] 12.5 % 11.6-14.6 [facility] Immature granulocytes/100 WBC (Bld) 0.400 % 0.0-0.9 [facility] Comment on above: IG% - Immature Granu locytes (promyelocytes, myelocytes and metamyelocytes) > 1% indicates that a LEFT SHIFT is Present. MCH (RBC) [Entitic mass] 30.6 pg 27.0-32.0 [facility] Nucleated RBC/100 WBC (Bld) [Ratio] 0 % 0-5 [facility] MCHC Auto (RBC) [Mass/Vol]Or dered By: Renard Burgos on 12-26-2022 MCHC (RBC) [Mass/Vol] 32.8 g/dL 32-36 [facility] Platelets bldOrdered By: Lyubov Burgos on 12-26-2022 Platelets (Bld) [#/Vol] 200 10*3/uL 150-450 [facility] Absolute lymphocyte countOrd ered By: Renard Burgos on 12-19-2022 Lymphocytes Auto (Unsp spec) [#/Vol] 2.24 10*3/uL 0.83-4.51 [facility] Basophil percentageOrdered B y: Renard Burgos on 12-19-2022 Basophils/100 WBC (Bld) 0.3 % 0-1 [facility] Eosinophils/100 WBC (Bld) 0.8 % 0-5 [facility] Neutrophils (Bld) [#/Vol] 5.7 10*3/uL 2.0-7.7 [facility] Neutrophils/100 WBC (Bld) 64.1 % 47-70 [facility] WBC (Bld) [#/Vol] 8.9 10*3/uL 4.4-11.0 [facility] Blood erythrocytes count (nu mber/volume)Ordered By: Renard Burgos on 12-19-2022 RBC (Bld) [#/Vol] 4.44 10*6/uL 4.6-6.2 [facility] Blood hemoglobin measurement (mass/volume)Ordered By: Renard Burgos on 12-19-2022 Hemoglobin (Bld) [Mass/Vol] 13.5 g/dL 13.0-16.5 [facility] Blood lymphocytes/100 leukoc ytesOrdered By: Renard Burgos on 12-19-2022 Lymphocytes/100 WBC (Bld) 25.1 % 19-41 [facility] Blood monocytes/100 leukocyt esOrdered By: Renard Burgos on 12-19-2022 Monocytes/100 WBC (Bld) 9.4 % 0-10 [facility] Blood platelet mean volumeOr dered By: Renard Burgos on 12-19-2022 Platelet mean volume (Bld) [Entitic vol] 11.0 fL 6.2-12.0 [facility] Determination of erythrocyte mean corpuscular volume (MCV)Ordered By: Renard Burgos on 12-19-2022 MCV (RBC) [Entitic vol] 92.8 fL 80-94 [facility] Hematocrit Auto (Bld) [Volum e fraction]Ordered By: Renard Burgos on 12-19-2022 Hematocrit (Bld) [Volume fraction] 41.2 % 40-54 [facility] Laboratory - Hematology and Cell countsOrdered By: Renard Burgos on 12-19-2022 Erythrocyte distribution width (RBC) [Entitic vol] 43.2 fL 35.1-43.9 [facility] Erythrocyte distribution width (RBC) [Ratio] 12.7 % 11.6-14.6 [facility] Immature granulocytes/100 WBC (Bld) 0.300 % 0.0-0.9 [facility] Comment on above: IG% - Immature Granu locytes (promyelocytes, myelocytes and metamyelocytes) > 1% indicates that a LEFT SHIFT is Present. MCH (RBC) [Entitic mass] 30.4 pg 27.0-32.0 [facility] Nucleated RBC/100 WBC (Bld) [Ratio] 0 % 0-5 [facility] MCHC Auto (RBC) [Mass/Vol]Or dered By: Renard Burgos on 12-19-2022 MCHC (RBC) [Mass/Vol] 32.8 g/dL 32-36 [facility] Platelets bldOrdered By: Lyubov lizy Loretta on 12-19-2022 Platelets (Bld) [#/Vol] 194 10*3/uL 150-450 [facility] Absolute lymphocyte countOrd ered By: Renard Burgos on 12-12-2022 Lymphocytes Auto (Unsp spec) [#/Vol] 2.33 10*3/uL 0.83-4.51 [facility] Basophil percentageOrdered B y: Renard Burgos on 12-12-2022 Basophils/100 WBC (Bld) 0.6 % 0-1 [facility] Eosinophils/100 WBC (Bld) 0.9 % 0-5 [facility] Neutrophils (Bld) [#/Vol] 5.8 10*3/uL 2.0-7.7 [facility] Neutrophils/100 WBC (Bld) 63.5 % 47-70 [facility] WBC (Bld) [#/Vol] 9.1 10*3/uL 4.4-11.0 [facility] Blood erythrocytes count (nu mber/volume)Ordered By: Renard Burgos on 12-12-2022 RBC (Bld) [#/Vol] 4.52 10*6/uL 4.6-6.2 [facility] Blood hemoglobin measurement (mass/volume)Ordered By: Renard Burgos on 12-12-2022 Hemoglobin (Bld) [Mass/Vol] 13.9 g/dL 13.0-16.5 [facility] Blood lymphocytes/100 leukoc ytesOrdered By: Renard Burgos on 12-12-2022 Lymphocytes/100 WBC (Bld) 25.6 % 19-41 [facility] Blood monocytes/100 leukocyt esOrdered By: Renard Burgos on 12-12-2022 Monocytes/100 WBC (Bld) 9.1 % 0-10 [facility] Blood platelet mean volumeOr dered By: Renard Burgos on 12-12-2022 Platelet mean volume (Bld) [Entitic vol] 10.9 fL 6.2-12.0 [facility] Determination of erythrocyte mean corpuscular volume (MCV)Ordered By: Renard Burgos on 12-12-2022 MCV (RBC) [Entitic vol] 94.2 fL 80-94 [facility] Hematocrit Auto (Bld) [Volum e fraction]Ordered By: Renard Burgos on 12-12-2022 Hematocrit (Bld) [Volume fraction] 42.6 % 40-54 [facility] - Hematology and Cell countsOrdered By: Renard Burgos on 12-12-2022 Erythrocyte distribution width (RBC) [Entitic vol] 44.3 fL 35.1-43.9 [facility] Erythrocyte distribution width (RBC) [Ratio] 12.8 % 11.6-14.6 [facility] Immature granulocytes/100 WBC (Bld) 0.300 % 0.0-0.9 [facility] Comment on above: IG% - Immature Granu locytes (promyelocytes, myelocytes and metamyelocytes) > 1% indicates that a LEFT SHIFT is Present. MCH (RBC) [Entitic mass] 30.8 pg 27.0-32.0 [facility] Nucleated RBC/100 WBC (Bld) [Ratio] 0 % 0-5 [facility] MCHC Auto (RBC) [Mass/Vol]Or dered By: Renard Burgos on 12-12-2022 MCHC (RBC) [Mass/Vol] 32.6 g/dL 32-36 [facility] Platelets bldOrdered By: Lyubov Burgos on 12-12-2022 Platelets (Bld) [#/Vol] 211 10*3/uL 150-450 [facility] Absolute lymphocyte countOrd ered By: Renard Burgos on 12-05-2022 Lymphocytes Auto (Unsp spec) [#/Vol] 1.94 10*3/uL 0.83-4.51 [facility] Basophil percentageOrdered B y: Renard Burgos on 12-05-2022 Basophils/100 WBC (Bld) 0.4 % 0-1 [facility] Eosinophils/100 WBC (Bld) 0.9 % 0-5 [facility] Neutrophils (Bld) [#/Vol] 4.1 10*3/uL 2.0-7.7 [facility] Neutrophils/100 WBC (Bld) 61.2 % 47-70 [facility] WBC (Bld) [#/Vol] 6.7 10*3/uL 4.4-11.0 [facility] Blood erythrocytes count (nu mber/volume)Ordered By: Renard Burgos on 12-05-2022 RBC (Bld) [#/Vol] 4.39 10*6/uL 4.6-6.2 [facility] Blood hemoglobin measurement (mass/volume)Ordered By: Renard Burgos on 12-05-2022 Hemoglobin (Bld) [Mass/Vol] 13.3 g/dL 13.0-16.5 [facility] Blood lymphocytes/100 leukoc ytesOrdered By: Renard Burgos on 12-05-2022 Lymphocytes/100 WBC (Bld) 28.8 % 19-41 [facility] Blood monocytes/100 leukocyt esOrdered By: Renard Burgos on 12-05-2022 Monocytes/100 WBC (Bld) 8.3 % 0-10 [facility] Blood platelet mean volumeOr dered By: Renard Burgos on 12-05-2022 Platelet mean volume (Bld) [Entitic vol] 10.8 fL 6.2-12.0 [facility] Determination of erythrocyte mean corpuscular volume (MCV)Ordered By: Renard Burgos on 12-05-2022 MCV (RBC) [Entitic vol] 90.7 fL 80-94 [facility] Hematocrit Auto (Bld) [Volum e fraction]Ordered By: Renard Burgos on 12-05-2022 Hematocrit (Bld) [Volume fraction] 39.8 % 40-54 [facility] Laboratory - Hematology and Cell countsOrdered By: Renard Burgos on 12-05-2022 Erythrocyte distribution width (RBC) [Entitic vol] 41.8 fL 35.1-43.9 [facility] Erythrocyte distribution width (RBC) [Ratio] 12.6 % 11.6-14.6 [facility] Immature granulocytes/100 WBC (Bld) 0.400 % 0.0-0.9 [facility] Comment on above: IG% - Immature Granu locytes (promyelocytes, myelocytes and metamyelocytes) > 1% indicates that a LEFT SHIFT is Present. MCH (RBC) [Entitic mass] 30.3 pg 27.0-32.0 [facility] Nucleated RBC/100 WBC (Bld) [Ratio] 0 % 0-5 [facility] MCHC Auto (RBC) [Mass/Vol]Or dered By: Renard Burgos on 12-05-2022 MCHC (RBC) [Mass/Vol] 33.4 g/dL 32-36 [facility] Platelets bldOrdered By: Lyubov Burgos on 12-05-2022 Platelets (Bld) [#/Vol] 208 10*3/uL 150-450 [facility] Absolute lymphocyte countOrd ered By: Renard Burgos on 11-28-2022 Lymphocytes Auto (Unsp spec) [#/Vol] 2.07 10*3/uL 0.83-4.51 [facility] Basophil percentageOrdered B y: Renard Burgos on 11-28-2022 Basophils/100 WBC (Bld) 0.4 % 0-1 [facility] Eosinophils/100 WBC (Bld) 0.6 % 0-5 [facility] Neutrophils (Bld) [#/Vol] 5.1 10*3/uL 2.0-7.7 [facility] Neutrophils/100 WBC (Bld) 64.6 % 47-70 [facility] WBC (Bld) [#/Vol] 7.9 10*3/uL 4.4-11.0 [facility] Blood erythrocytes count (nu mber/volume)Ordered By: Renard Burgos on 11-28-2022 RBC (Bld) [#/Vol] 4.54 10*6/uL 4.6-6.2 [facility] Blood hemoglobin measurement (mass/volume)Ordered By: Renard Burgos on 11-28-2022 Hemoglobin (Bld) [Mass/Vol] 13.7 g/dL 13.0-16.5 [facility] Blood lymphocytes/100 leukoc ytesOrdered By: Renard Burgos on 11-28-2022 Lymphocytes/100 WBC (Bld) 26.2 % 19-41 [facility] Blood monocytes/100 leukocyt esOrdered By: Renard Burgos on 11-28-2022 Monocytes/100 WBC (Bld) 7.7 % 0-10 [facility] Blood platelet mean volumeOr dered By: Renard Burgos on 11-28-2022 Platelet mean volume (Bld) [Entitic vol] 10.6 fL 6.2-12.0 [facility] Determination of erythrocyte mean corpuscular volume (MCV)Ordered By: Renard Burgos on 11-28-2022 MCV (RBC) [Entitic vol] 93.6 fL 80-94 [facility] Hematocrit Auto (Bld) [Volum e fraction]Ordered By: Renard Burgos on 11-28-2022 Hematocrit (Bld) [Volume fraction] 42.5 % 40-54 [facility] Laboratory - Hematology and Cell countsOrdered By: Renard Burgos on 11-28-2022 Erythrocyte distribution width (RBC) [Entitic vol] 43.5 fL 35.1-43.9 [facility] Erythrocyte distribution width (RBC) [Ratio] 12.7 % 11.6-14.6 [facility] Immature granulocytes/100 WBC (Bld) 0.500 % 0.0-0.9 [facility] Comment on above: IG% - Immature Granu locytes (promyelocytes, myelocytes and metamyelocytes) > 1% indicates that a LEFT SHIFT is Present. MCH (RBC) [Entitic mass] 30.2 pg 27.0-32.0 [facility] Nucleated RBC/100 WBC (Bld) [Ratio] 0 % 0-5 [facility] MCHC Auto (RBC) [Mass/Vol]Or dered By: Renard Burgos on 11-28-2022 MCHC (RBC) [Mass/Vol] 32.2 g/dL 32-36 [facility] Platelets bldOrdered By: Lyubov Burgos on 11-28-2022 Platelets (Bld) [#/Vol] 201 10*3/uL 150-450 [facility] Absolute lymphocyte countOrd ered By: Renard Burgos on 11-21-2022 Lymphocytes Auto (Unsp spec) [#/Vol] 2.32 10*3/uL 0.83-4.51 [facility] Basophil percentageOrdered B y: Renard Burgos on 11-21-2022 Basophils/100 WBC (Bld) 0.6 % 0-1 [facility] Eosinophils/100 WBC (Bld) 0.7 % 0-5 [facility] Neutrophils (Bld) [#/Vol] 5.0 10*3/uL 2.0-7.7 [facility] Neutrophils/100 WBC (Bld) 60.6 % 47-70 [facility] WBC (Bld) [#/Vol] 8.2 10*3/uL 4.4-11.0 [facility] Blood erythrocytes count (nu mber/volume)Ordered By: Renard Burgos on 11-21-2022 RBC (Bld) [#/Vol] 4.71 10*6/uL 4.6-6.2 [facility] Blood hemoglobin measurement (mass/volume)Ordered By: Renard Burgos on 11-21-2022 Hemoglobin (Bld) [Mass/Vol] 14.3 g/dL 13.0-16.5 [facility] Blood lymphocytes/100 leukoc ytesOrdered By: Renard Burgos on 11-21-2022 Lymphocytes/100 WBC (Bld) 28.2 % 19-41 [facility] Blood monocytes/100 leukocyt esOrdered By: Renard Burgos on 11-21-2022 Monocytes/100 WBC (Bld) 9.2 % 0-10 [facility] Blood platelet mean volumeOr dered By: Renard Burgos on 11-21-2022 Platelet mean volume (Bld) [Entitic vol] 10.4 fL 6.2-12.0 [facility] Determination of erythrocyte mean corpuscular volume (MCV)Ordered By: Renard Burgos on 11-21-2022 MCV (RBC) [Entitic vol] 91.9 fL 80-94 [facility] Hematocrit Auto (Bld) [Volum e fraction]Ordered By: Renard Burgos on 11-21-2022 Hematocrit (Bld) [Volume fraction] 43.3 % 40-54 [facility] Laboratory - Hematology and Cell countsOrdered By: Renard Burgos on 11-21-2022 Erythrocyte distribution width (RBC) [Entitic vol] 43.1 fL 35.1-43.9 [facility] Erythrocyte distribution width (RBC) [Ratio] 12.8 % 11.6-14.6 [facility] Immature granulocytes/100 WBC (Bld) 0.700 % 0.0-0.9 [facility] Comment on above: IG% - Immature Granu locytes (promyelocytes, myelocytes and metamyelocytes) > 1% indicates that a LEFT SHIFT is Present. MCH (RBC) [Entitic mass] 30.4 pg 27.0-32.0 [facility] Nucleated RBC/100 WBC (Bld) [Ratio] 0 % 0-5 [facility] MCHC Auto (RBC) [Mass/Vol]Or dered By: Renard Burgos on 11-21-2022 MCHC (RBC) [Mass/Vol] 33.0 g/dL 32-36 [facility] Platelets bldOrdered By: Lyubov Burgos on 11-21-2022 Platelets (Bld) [#/Vol] 219 10*3/uL 150-450 [facility] Absolute lymphocyte countOrd ered By: Renard Burgos on 11-14-2022 Lymphocytes Auto (Unsp spec) [#/Vol] 1.82 10*3/uL 0.83-4.51 [facility] Basophil percentageOrdered B y: Renard Burgos on 11-14-2022 Basophils/100 WBC (Bld) 0.4 % 0-1 [facility] Chloride [Moles/Vol] 107 mmol/L 98-107 [facility] Eosinophils/100 WBC (Bld) 0.4 % 0-5 [facility] Glucose [Mass/Vol] 121 mg/dL 74-106 [facility] Comment on above: Fasting Glucose resu lt from 100 to 125 mg/dL suggests IMPAIRED HOMEOSTASIS per A.D.A. criteria. Neutrophils (Bld) [#/Vol] 4.7 10*3/uL 2.0-7.7 [facility] Neutrophils/100 WBC (Bld) 66.6 % 47-70 [facility] Potassium [Moles/Vol] 3.7 mmol/L 3.5-5.1 [facility] Sodium [Moles/Vol] 141 mmol/L 136-145 [facility] WBC (Bld) [#/Vol] 7.1 10*3/uL 4.4-11.0 [facility] Blood erythrocytes count (nu mber/volume)Ordered By: Renard Burgos on 11-14-2022 RBC (Bld) [#/Vol] 4.35 10*6/uL 4.6-6.2 [facility] Blood hemoglobin measurement (mass/volume)Ordered By: Renard Burgos on 11-14-2022 Hemoglobin (Bld) [Mass/Vol] 13.6 g/dL 13.0-16.5 [facility] Blood lymphocytes/100 leukoc ytesOrdered By: Renard Burgos on 11-14-2022 Lymphocytes/100 WBC (Bld) 25.6 % 19-41 [facility] Blood monocytes/100 leukocyt esOrdered By: Renard Burgos on 11-14-2022 Monocytes/100 WBC (Bld) 6.6 % 0-10 [facility] Blood platelet mean volumeOr dered By: Renard Burgos on 11-14-2022 Platelet mean volume (Bld) [Entitic vol] 10.9 fL 6.2-12.0 [facility] Determination of erythrocyte mean corpuscular volume (MCV)Ordered By: Renard Burgos on 11-14-2022 MCV (RBC) [Entitic vol] 93.3 fL 80-94 [facility] Hematocrit Auto (Bld) [Volum e fraction]Ordered By: Renard Burgos on 11-14-2022 Hematocrit (Bld) [Volume fraction] 40.6 % 40-54 [facility] Laboratory - Chemistry and C hemistry - challengeOrdered By: Renard Burgos on 11-14-2022 CO2 [Moles/Vol] 31.0 mmol/L 21.0-32.0 [facility] Urea nitrogen/Creatinine [Mass ratio] 26.0 mg/mg 10-20 [facility] Laboratory - Hematology and Cell countsOrdered By: Renard Burgos on 11-14-2022 Erythrocyte distribution width (RBC) [Entitic vol] 43.9 fL 35.1-43.9 [facility] Erythrocyte distribution width (RBC) [Ratio] 12.8 % 11.6-14.6 [facility] Immature granulocytes/100 WBC (Bld) 0.400 % 0.0-0.9 [facility] Comment on above: IG% - Immature Granu locytes (promyelocytes, myelocytes and metamyelocytes) > 1% indicates that a LEFT SHIFT is Present. MCH (RBC) [Entitic mass] 31.3 pg 27.0-32.0 [facility] Nucleated RBC/100 WBC (Bld) [Ratio] 0 % 0-5 [facility] MCHC Auto (RBC) [Mass/Vol]Or dered By: Renard Burgos on 11-14-2022 MCHC (RBC) [Mass/Vol] 33.5 g/dL 32-36 [facility] No Panel InformationOrdered By: Renard Burgos on 11-14-2022 Estimated GFR (MDRD) Amer 147 mL/min >60 [facility] Comment on above: GFR Calc Estimated GFR (MDRD) Non-Af Amer 122 mL/min >60 [facility] Comment on above: Non- GFR Calc Platelets bldOrdered By: Lyubov Burgos on 11-14-2022 Platelets (Bld) [#/Vol] 202 10*3/uL 150-450 [facility] Serum or plasma calcium gordy urement (mass/volume)Ordered By: Renard Burgos on 11-14-2022 Calcium [Mass/Vol] 8.2 mg/dL 8.5-10.1 [facility] Serum or plasma creatinine m easurement (mass/volume)Ordered By: Renard Burgos on 11-14-2022 Creatinine [Mass/Vol] 0.69 mg/dL 0.70-1.30 [facility] Comment on above: The validity of the calculated GFR & GFRAA in patients over 70 years has not been determined. Clinical correlation is essential. Serum or plasma urea nitroge n measurement (mass/volume)Ordered By: Renard Burgos on 11-14-2022 Urea nitrogen [Mass/Vol] 18 mg/dL 7-18 [facility] Thin prep Papanicolaou smear with manual screeningOrdered By: Renard Burgos on 11-14-2022 Thin prep Papanicolaou smear with manual screening 3 5-15 [facility] Absolute lymphocyte countOrd ered By: Renard Burgos on 11-07-2022 Lymphocytes Auto (Unsp spec) [#/Vol] 1.99 10*3/uL 0.83-4.51 [facility] Basophil percentageOrdered B y: Renard Burgos on 11-07-2022 Basophils/100 WBC (Bld) 0.8 % 0-1 [facility] Eosinophils/100 WBC (Bld) 0.5 % 0-5 [facility] Neutrophils (Bld) [#/Vol] 5.1 10*3/uL 2.0-7.7 [facility] Neutrophils/100 WBC (Bld) 64.0 % 47-70 [facility] WBC (Bld) [#/Vol] 8.0 10*3/uL 4.4-11.0 [facility] Blood erythrocytes count (nu mber/volume)Ordered By: Renard Burgos on 11-07-2022 RBC (Bld) [#/Vol] 4.45 10*6/uL 4.6-6.2 [facility] Blood hemoglobin measurement (mass/volume)Ordered By: Renard Burgos on 11-07-2022 Hemoglobin (Bld) [Mass/Vol] 13.7 g/dL 13.0-16.5 [facility] Blood lymphocytes/100 leukoc ytesOrdered By: Renard uBrgos on 11-07-2022 Lymphocytes/100 WBC (Bld) 25.0 % 19-41 [facility] Blood monocytes/100 leukocyt esOrdered By: Renard Burgos on 11-07-2022 Monocytes/100 WBC (Bld) 9.4 % 0-10 [facility] Blood platelet mean volumeOr dered By: Renard Burgos on 11-07-2022 Platelet mean volume (Bld) [Entitic vol] 10.7 fL 6.2-12.0 [facility] Determination of erythrocyte mean corpuscular volume (MCV)Ordered By: Renard Burgos on 11-07-2022 MCV (RBC) [Entitic vol] 91.5 fL 80-94 [facility] Hematocrit Auto (Bld) [Volum e fraction]Ordered By: Renard Burgos on 11-07-2022 Hematocrit (Bld) [Volume fraction] 40.7 % 40-54 [facility] Laboratory - Hematology and Cell countsOrdered By: Renard Burgos on 11-07-2022 Erythrocyte distribution width (RBC) [Entitic vol] 42.4 fL 35.1-43.9 [facility] Erythrocyte distribution width (RBC) [Ratio] 12.8 % 11.6-14.6 [facility] Immature granulocytes/100 WBC (Bld) 0.300 % 0.0-0.9 [facility] Comment on above: IG% - Immature Granu locytes (promyelocytes, myelocytes and metamyelocytes) > 1% indicates that a LEFT SHIFT is Present. MCH (RBC) [Entitic mass] 30.8 pg 27.0-32.0 [facility] Nucleated RBC/100 WBC (Bld) [Ratio] 0 % 0-5 [facility] MCHC Auto (RBC) [Mass/Vol]Or dered By: Renard Burgos on 11-07-2022 MCHC (RBC) [Mass/Vol] 33.7 g/dL 32-36 [facility] Platelets bldOrdered By: Lyubov Burgos on 11-07-2022 Platelets (Bld) [#/Vol] 220 10*3/uL 150-450 [facility] Absolute lymphocyte countOrd ered By: Renard Burgos on 10-31-2022 Lymphocytes Auto (Unsp spec) [#/Vol] 1.97 10*3/uL 0.83-4.51 [facility] Basophil percentageOrdered B y: Renard Burgos on 10-31-2022 Basophils/100 WBC (Bld) 0.5 % 0-1 [facility] Eosinophils/100 WBC (Bld) 0.6 % 0-5 [facility] Neutrophils (Bld) [#/Vol] 6.7 10*3/uL 2.0-7.7 [facility] Neutrophils/100 WBC (Bld) 69.9 % 47-70 [facility] WBC (Bld) [#/Vol] 9.6 10*3/uL 4.4-11.0 [facility] Blood erythrocytes count (nu mber/volume)Ordered By: Renard Burgos on 10-31-2022 RBC (Bld) [#/Vol] 4.47 10*6/uL 4.6-6.2 [facility] Blood hemoglobin measurement (mass/volume)Ordered By: Renard Burgos on 10-31-2022 Hemoglobin (Bld) [Mass/Vol] 13.5 g/dL 13.0-16.5 [facility] Blood lymphocytes/100 leukoc ytesOrdered By: Renard Burgos on 10-31-2022 Lymphocytes/100 WBC (Bld) 20.5 % 19-41 [facility] Blood monocytes/100 leukocyt esOrdered By: Renard Burgos on 10-31-2022 Monocytes/100 WBC (Bld) 7.9 % 0-10 [facility] Blood platelet mean volumeOr dered By: Renard Burgos on 10-31-2022 Platelet mean volume (Bld) [Entitic vol] 11.1 fL 6.2-12.0 [facility] Determination of erythrocyte mean corpuscular volume (MCV)Ordered By: Renard Burgos on 10-31-2022 MCV (RBC) [Entitic vol] 92.4 fL 80-94 [facility] Hematocrit Auto (Bld) [Volum e fraction]Ordered By: Renard Burgos on 10-31-2022 Hematocrit (Bld) [Volume fraction] 41.3 % 40-54 [facility] Laboratory - Hematology and Cell countsOrdered By: Renard Burgos on 10-31-2022 Erythrocyte distribution width (RBC) [Entitic vol] 42.9 fL 35.1-43.9 [facility] Erythrocyte distribution width (RBC) [Ratio] 12.7 % 11.6-14.6 [facility] Immature granulocytes/100 WBC (Bld) 0.600 % 0.0-0.9 [facility] Comment on above: IG% - Immature Granu locytes (promyelocytes, myelocytes and metamyelocytes) > 1% indicates that a LEFT SHIFT is Present. MCH (RBC) [Entitic mass] 30.2 pg 27.0-32.0 [facility] Nucleated RBC/100 WBC (Bld) [Ratio] 0 % 0-5 [facility] MCHC Auto (RBC) [Mass/Vol]Or dered By: Renard Burgos on 10-31-2022 MCHC (RBC) [Mass/Vol] 32.7 g/dL 32-36 [facility] Platelets bldOrdered By: Lyubov Burgos on 10-31-2022 Platelets (Bld) [#/Vol] 221 10*3/uL 150-450 [facility] Absolute lymphocyte countOrd ered By: Renard Burgos on 10-24-2022 Lymphocytes Auto (Unsp spec) [#/Vol] 1.96 10*3/uL 0.83-4.51 [facility] Basophil percentageOrdered B y: Renard Burgos on 10-24-2022 Basophils/100 WBC (Bld) 0.4 % 0-1 [facility] Eosinophils/100 WBC (Bld) 0.7 % 0-5 [facility] Neutrophils (Bld) [#/Vol] 4.5 10*3/uL 2.0-7.7 [facility] Neutrophils/100 WBC (Bld) 61.9 % 47-70 [facility] WBC (Bld) [#/Vol] 7.3 10*3/uL 4.4-11.0 [facility] Blood erythrocytes count (nu mber/volume)Ordered By: Renard Burgos on 10-24-2022 RBC (Bld) [#/Vol] 4.41 10*6/uL 4.6-6.2 [facility] Blood hemoglobin measurement (mass/volume)Ordered By: Renard Burgos on 10-24-2022 Hemoglobin (Bld) [Mass/Vol] 13.2 g/dL 13.0-16.5 [facility] Blood lymphocytes/100 leukoc ytesOrdered By: Renard Burgos on 10-24-2022 Lymphocytes/100 WBC (Bld) 27.0 % 19-41 [facility] Blood monocytes/100 leukocyt esOrdered By: Renard Burgos on 10-24-2022 Monocytes/100 WBC (Bld) 9.4 % 0-10 [facility] Blood platelet mean volumeOr dered By: Renard Burgos on 10-24-2022 Platelet mean volume (Bld) [Entitic vol] 10.9 fL 6.2-12.0 [facility] Determination of erythrocyte mean corpuscular volume (MCV)Ordered By: Renard Burgos on 10-24-2022 MCV (RBC) [Entitic vol] 92.1 fL 80-94 [facility] Hematocrit Auto (Bld) [Volum e fraction]Ordered By: Renard Brugos on 10-24-2022 Hematocrit (Bld) [Volume fraction] 40.6 % 40-54 [facility] Laboratory - Hematology and Cell countsOrdered By: Renard Burgos on 10-24-2022 Erythrocyte distribution width (RBC) [Entitic vol] 42.8 fL 35.1-43.9 [facility] Erythrocyte distribution width (RBC) [Ratio] 12.8 % 11.6-14.6 [facility] Immature granulocytes/100 WBC (Bld) 0.600 % 0.0-0.9 [facility] Comment on above: IG% - Immature Granu locytes (promyelocytes, myelocytes and metamyelocytes) > 1% indicates that a LEFT SHIFT is Present. MCH (RBC) [Entitic mass] 29.9 pg 27.0-32.0 [facility] Nucleated RBC/100 WBC (Bld) [Ratio] 0 % 0-5 [facility] MCHC Auto (RBC) [Mass/Vol]Or dered By: Renard Burgos on 10-24-2022 MCHC (RBC) [Mass/Vol] 32.5 g/dL 32-36 [facility] Platelets bldOrdered By: Lyubov Burgos on 10-24-2022 Platelets (Bld) [#/Vol] 213 10*3/uL 150-450 [facility] Absolute lymphocyte countOrd ered By: Renard Burgos on 10-17-2022 Lymphocytes Auto (Unsp spec) [#/Vol] 2.05 10*3/uL 0.83-4.51 [facility] Basophil percentageOrdered B y: Renard Burgos on 10-17-2022 Basophils/100 WBC (Bld) 0.4 % 0-1 [facility] Eosinophils/100 WBC (Bld) 0.5 % 0-5 [facility] Neutrophils (Bld) [#/Vol] 6.7 10*3/uL 2.0-7.7 [facility] Neutrophils/100 WBC (Bld) 70.9 % 47-70 [facility] WBC (Bld) [#/Vol] 9.4 10*3/uL 4.4-11.0 [facility] Blood erythrocytes count (nu mber/volume)Ordered By: Renard Burgos on 10-17-2022 RBC (Bld) [#/Vol] 4.33 10*6/uL 4.6-6.2 [facility] Blood hemoglobin measurement (mass/volume)Ordered By: Renard Burgos on 10-17-2022 Hemoglobin (Bld) [Mass/Vol] 13.3 g/dL 13.0-16.5 [facility] Blood lymphocytes/100 leukoc ytesOrdered By: Renard Burgos on 10-17-2022 Lymphocytes/100 WBC (Bld) 21.7 % 19-41 [facility] Blood monocytes/100 leukocyt esOrdered By: Renard Burgos on 10-17-2022 Monocytes/100 WBC (Bld) 6.1 % 0-10 [facility] Blood platelet mean volumeOr dered By: Renard Burgos on 10-17-2022 Platelet mean volume (Bld) [Entitic vol] 10.9 fL 6.2-12.0 [facility] Determination of erythrocyte mean corpuscular volume (MCV)Ordered By: Renard Burgos on 10-17-2022 MCV (RBC) [Entitic vol] 93.8 fL 80-94 [facility] Hematocrit Auto (Bld) [Volum e fraction]Ordered By: Renard Burgos on 10-17-2022 Hematocrit (Bld) [Volume fraction] 40.6 % 40-54 [facility] Laboratory - Hematology and Cell countsOrdered By: Renard Burgos on 10-17-2022 Erythrocyte distribution width (RBC) [Entitic vol] 42.7 fL 35.1-43.9 [facility] Erythrocyte distribution width (RBC) [Ratio] 12.4 % 11.6-14.6 [facility] Immature granulocytes/100 WBC (Bld) 0.400 % 0.0-0.9 [facility] Comment on above: IG% - Immature Granu locytes (promyelocytes, myelocytes and metamyelocytes) > 1% indicates that a LEFT SHIFT is Present. MCH (RBC) [Entitic mass] 30.7 pg 27.0-32.0 [facility] Nucleated RBC/100 WBC (Bld) [Ratio] 0 % 0-5 [facility] MCHC Auto (RBC) [Mass/Vol]Or dered By: Renard Burgos on 10-17-2022 MCHC (RBC) [Mass/Vol] 32.8 g/dL 32-36 [facility] Platelets bldOrdered By: Pet lizy Lorteta on 10-17-2022 Platelets (Bld) [#/Vol] 186 10*3/uL 150-450 [facility] Absolute lymphocyte countOrd ered By: Renard Burgos on 10-10-2022 Lymphocytes Auto (Unsp spec) [#/Vol] 2.21 10*3/uL 0.83-4.51 [facility] Basophil percentageOrdered B y: Renard Burgos on 10-10-2022 Basophils/100 WBC (Bld) 0.6 % 0-1 [facility] Eosinophils/100 WBC (Bld) 0.6 % 0-5 [facility] Neutrophils (Bld) [#/Vol] 4.7 10*3/uL 2.0-7.7 [facility] Neutrophils/100 WBC (Bld) 59.6 % 47-70 [facility] WBC (Bld) [#/Vol] 7.9 10*3/uL 4.4-11.0 [facility] Blood erythrocytes count (nu mber/volume)Ordered By: Renard Burgos on 10-10-2022 RBC (Bld) [#/Vol] 4.78 10*6/uL 4.6-6.2 [facility] Blood hemoglobin measurement (mass/volume)Ordered By: Renard Burgos on 10-10-2022 Hemoglobin (Bld) [Mass/Vol] 14.4 g/dL 13.0-16.5 [facility] Blood lymphocytes/100 leukoc ytesOrdered By: Renard Burgos on 10-10-2022 Lymphocytes/100 WBC (Bld) 28.0 % 19-41 [facility] Blood monocytes/100 leukocyt esOrdered By: Renard Burgos on 10-10-2022 Monocytes/100 WBC (Bld) 10.8 % 0-10 [facility] Blood platelet mean volumeOr dered By: Renard Burgos on 10-10-2022 Platelet mean volume (Bld) [Entitic vol] 10.7 fL 6.2-12.0 [facility] Determination of erythrocyte mean corpuscular volume (MCV)Ordered By: Renard Burgos on 10-10-2022 MCV (RBC) [Entitic vol] 94.8 fL 80-94 [facility] Hematocrit Auto (Bld) [Volum e fraction]Ordered By: Renard Burgos on 10-10-2022 Hematocrit (Bld) [Volume fraction] 45.3 % 40-54 [facility] Laboratory - Hematology and Cell countsOrdered By: Renard Burgos on 10-10-2022 Erythrocyte distribution width (RBC) [Entitic vol] 43.8 fL 35.1-43.9 [facility] Erythrocyte distribution width (RBC) [Ratio] 12.6 % 11.6-14.6 [facility] Immature granulocytes/100 WBC (Bld) 0.400 % 0.0-0.9 [facility] Comment on above: IG% - Immature Granu locytes (promyelocytes, myelocytes and metamyelocytes) > 1% indicates that a LEFT SHIFT is Present. MCH (RBC) [Entitic mass] 30.1 pg 27.0-32.0 [facility] Nucleated RBC/100 WBC (Bld) [Ratio] 0 % 0-5 [facility] MCHC Auto (RBC) [Mass/Vol]Or dered By: Renard Burgos on 10-10-2022 MCHC (RBC) [Mass/Vol] 31.8 g/dL 32-36 [facility] Platelets bldOrdered By: Lyubov Burgos on 10-10-2022 Platelets (Bld) [#/Vol] 198 10*3/uL 150-450 [facility] Absolute lymphocyte countOrd ered By: Renard Burgos on 10-03-2022 Lymphocytes Auto (Unsp spec) [#/Vol] 2.00 10*3/uL 0.83-4.51 [facility] Basophil percentageOrdered B y: Renard Burgos on 10-03-2022 Basophils/100 WBC (Bld) 0.6 % 0-1 [facility] Bilirubin [Mass/Vol] 0.30 mg/dL 0.20-1.00 [facility] Comment on above: For patients on eltr ombopag therapy, use of Dimension Bozman TBIL is not recommended. Chloride [Moles/Vol] 109 mmol/L 98-107 [facility] Cholesterol [Mass/Vol] 129 mg/dL <200 [facility] Comment on above: <200 mg/dL Desirable 200-240 mg/dL Borderline >240 mg/dL High Risk Eosinophils/100 WBC (Bld) 0.8 % 0-5 [facility] Glucose [Mass/Vol] 82 mg/dL 74-106 [facility] Neutrophils (Bld) [#/Vol] 5.1 10*3/uL 2.0-7.7 [facility] Neutrophils/100 WBC (Bld) 63.2 % 47-70 [facility] Potassium [Moles/Vol] 3.9 mmol/L 3.5-5.1 [facility] Protein [Mass/Vol] 6.1 g/dL 6.4-8.2 [facility] Sodium [Moles/Vol] 140 mmol/L 136-145 [facility] Triglyceride [Mass/Vol] 209 mg/dL <199 [facility] Comment on above: The drugs N-Acetylcy steine and Metamizole may falsely depress this assay.Serum Triglycerides Reference Interval Normal <150 mg/dL Borderline high 150 - 199 mg/dL High 200 - 499 mg/dL Very High > or = 500 mg/dL WBC (Bld) [#/Vol] 8.0 10*3/uL 4.4-11.0 [facility] Blood erythrocytes count (nu mber/volume)Ordered By: Renard Burgos on 10-03-2022 RBC (Bld) [#/Vol] 4.58 10*6/uL 4.6-6.2 [facility] Blood hemoglobin measurement (mass/volume)Ordered By: Renard Burgos on 10-03-2022 Hemoglobin (Bld) [Mass/Vol] 13.9 g/dL 13.0-16.5 [facility] Blood lymphocytes/100 leukoc ytesOrdered By: Renard Burgos on 10-03-2022 Lymphocytes/100 WBC (Bld) 25.1 % 19-41 [facility] Blood monocytes/100 leukocyt esOrdered By: Renard Burgos on 10-03-2022 Monocytes/100 WBC (Bld) 10.0 % 0-10 [facility] Blood platelet mean volumeOr dered By: Renard Burgos on 10-03-2022 Platelet mean volume (Bld) [Entitic vol] 11.1 fL 6.2-12.0 [facility] Determination of erythrocyte mean corpuscular volume (MCV)Ordered By: Renard Burgos on 10-03-2022 MCV (RBC) [Entitic vol] 93.9 fL 80-94 [facility] Hematocrit Auto (Bld) [Volum e fraction]Ordered By: Renard Burgos on 10-03-2022 Hematocrit (Bld) [Volume fraction] 43.0 % 40-54 [facility] Laboratory - Chemistry and C hemistry - challengeOrdered By: Renard Burgos on 10-03-2022 ALP [Catalytic activity/Vol] 98 U/L 45-117 [facility] ALT [Catalytic activity/Vol] 19 U/L 16-61 [facility] CO2 [Moles/Vol] 31.0 mmol/L 21.0-32.0 [facility] Globulin (S) [Mass/Vol] 3.1 g/dL 2.2-4.2 [facility] Urea nitrogen/Creatinine [Mass ratio] 25.6 mg/mg 10-20 [facility] Laboratory - Hematology and Cell countsOrdered By: Renard Burgos on 10-03-2022 Erythrocyte distribution width (RBC) [Entitic vol] 43.8 fL 35.1-43.9 [facility] Erythrocyte distribution width (RBC) [Ratio] 12.7 % 11.6-14.6 [facility] Immature granulocytes/100 WBC (Bld) 0.300 % 0.0-0.9 [facility] Comment on above: IG% - Immature Granu locytes (promyelocytes, myelocytes and metamyelocytes) > 1% indicates that a LEFT SHIFT is Present. MCH (RBC) [Entitic mass] 30.3 pg 27.0-32.0 [facility] Nucleated RBC/100 WBC (Bld) [Ratio] 0 % 0-5 [facility] MCHC Auto (RBC) [Mass/Vol]Or dered By: Renard Burgos on 10-03-2022 MCHC (RBC) [Mass/Vol] 32.3 g/dL 32-36 [facility] No Panel InformationOrdered By: Renard Burgos on 10-03-2022 Estimated GFR (MDRD) Amer 165 mL/min >60 [facility] Comment on above: GFR Calc Estimated GFR (MDRD) Non-Af Amer 137 mL/min >60 [facility] Comment on above: Non- GFR Calc Platelets bldOrdered By: Lyubov Burgos on 10-03-2022 Platelets (Bld) [#/Vol] 204 10*3/uL 150-450 [facility] Serum or plasma albumin gordy urement (mass/volume)Ordered By: Renard Burgos on 10-03-2022 Albumin [Mass/Vol] 3.0 g/dL 3.2-5.0 [facility] Serum or plasma albumin/glob ulin mass ratioOrdered By: Renard Burgos on 10-03-2022 Albumin/Globulin [Mass ratio] 1.0 {ratio} 0.9-2.4 [facility] Serum or plasma calcium gordy urement (mass/volume)Ordered By: Renard Burgos on 10-03-2022 Calcium [Mass/Vol] 8.4 mg/dL 8.5-10.1 [facility] Serum or plasma cholesterol in HDL measurement (mass/volume)Ordered By: Renard Burgos on 10-03-2022 Cholesterol in HDL [Mass/Vol] 29 mg/dL >40 [facility] Comment on above: The drugs N-Acetylcy steine and Metamizole may falsely depress this assay. Reference Range HDL <40 mg/dL Low HDL Cholesterol HDL >or= 60 mg/dL High HDL Cholesterol Serum or plasma cholesterol in VLDL measurement (mass/volume)Ordered By: Renard Burgos on 10-03-2022 Cholesterol in VLDL [Mass/Vol] 42 mg/dL 5-40 [facility] Serum or plasma creatinine m easurement (mass/volume)Ordered By: Renard Burgos on 10-03-2022 Creatinine [Mass/Vol] 0.63 mg/dL 0.70-1.30 [facility] Comment on above: The validity of the calculated GFR & GFRAA in patients over 70 years has not been determined. Clinical correlation is essential. Serum or plasma low density lipoprotein (LDL) cholesterol measurement (mass/volume)Ordered By: Renard Burgos on 10-03-2022 Cholesterol in LDL [Mass/Vol] 58 mg/dL 0-130 [facility] Serum or plasma urea nitroge n measurement (mass/volume)Ordered By: Renard Burgos on 10-03-2022 Urea nitrogen [Mass/Vol] 16 mg/dL 7-18 [facility] Thin prep Papanicolaou smear with manual screeningOrdered By: Renard Burgos on 10-03-2022 Thin prep Papanicolaou smear with manual screening 13 U/L 15-37 [facility] Thin prep Papanicolaou smear with manual screening 0 5-15 [facility] Absolute lymphocyte countOrd ered By: Renard Burgos on 09-19-2022 Lymphocytes Auto (Unsp spec) [#/Vol] 1.59 10*3/uL 0.83-4.51 [facility] Basophil percentageOrdered B y: Renard Burgos on 09-19-2022 Basophils/100 WBC (Bld) 0.5 % 0-1 [facility] Eosinophils/100 WBC (Bld) 0.3 % 0-5 [facility] Neutrophils (Bld) [#/Vol] 7.4 10*3/uL 2.0-7.7 [facility] Neutrophils/100 WBC (Bld) 75.0 % 47-70 [facility] WBC (Bld) [#/Vol] 9.9 10*3/uL 4.4-11.0 [facility] Blood erythrocytes count (nu mber/volume)Ordered By: Renard Burgos on 09-19-2022 RBC (Bld) [#/Vol] 4.46 10*6/uL 4.6-6.2 [facility] Blood hemoglobin measurement (mass/volume)Ordered By: Renard Burgos on 09-19-2022 Hemoglobin (Bld) [Mass/Vol] 13.5 g/dL 13.0-16.5 [facility] Blood lymphocytes/100 leukoc ytesOrdered By: Renard Burgos on 09-19-2022 Lymphocytes/100 WBC (Bld) 16.1 % 19-41 [facility] Blood monocytes/100 leukocyt esOrdered By: Renard Burgos on 09-19-2022 Monocytes/100 WBC (Bld) 7.6 % 0-10 [facility] Blood platelet mean volumeOr dered By: Renard Burgos on 09-19-2022 Platelet mean volume (Bld) [Entitic vol] 10.8 fL 6.2-12.0 [facility] Determination of erythrocyte mean corpuscular volume (MCV)Ordered By: Renard Burgos on 09-19-2022 MCV (RBC) [Entitic vol] 92.2 fL 80-94 [facility] Hematocrit Auto (Bld) [Volum e fraction]Ordered By: Renard Burgos on 09-19-2022 Hematocrit (Bld) [Volume fraction] 41.1 % 40-54 [facility] Laboratory - Hematology and Cell countsOrdered By: Renard Burgos on 09-19-2022 Erythrocyte distribution width (RBC) [Entitic vol] 41.2 fL 35.1-43.9 [facility] Erythrocyte distribution width (RBC) [Ratio] 12.3 % 11.6-14.6 [facility] Immature granulocytes/100 WBC (Bld) 0.500 % 0.0-0.9 [facility] Comment on above: IG% - Immature Granu locytes (promyelocytes, myelocytes and metamyelocytes) > 1% indicates that a LEFT SHIFT is Present. MCH (RBC) [Entitic mass] 30.3 pg 27.0-32.0 [facility] Nucleated RBC/100 WBC (Bld) [Ratio] 0 % 0-5 [facility] MCHC Auto (RBC) [Mass/Vol]Or dered By: Renard Burgos on 09-19-2022 MCHC (RBC) [Mass/Vol] 32.8 g/dL 32-36 [facility] Platelets bldOrdered By: Lyubov Burgos on 09-19-2022 Platelets (Bld) [#/Vol] 245 10*3/uL 150-450 [facility] Absolute lymphocyte countOrd ered By: Renard Burgos on 09-12-2022 Lymphocytes Auto (Unsp spec) [#/Vol] 2.11 10*3/uL 0.83-4.51 [facility] Basophil percentageOrdered B y: Renard Burgos on 09-12-2022 Basophils/100 WBC (Bld) 0.5 % 0-1 [facility] Eosinophils/100 WBC (Bld) 0.7 % 0-5 [facility] Neutrophils (Bld) [#/Vol] 4.7 10*3/uL 2.0-7.7 [facility] Neutrophils/100 WBC (Bld) 63.6 % 47-70 [facility] WBC (Bld) [#/Vol] 7.3 10*3/uL 4.4-11.0 [facility] Blood erythrocytes count (nu mber/volume)Ordered By: Renard Burgos on 09-12-2022 RBC (Bld) [#/Vol] 4.40 10*6/uL 4.6-6.2 [facility] Blood hemoglobin measurement (mass/volume)Ordered By: Renard Burgos on 09-12-2022 Hemoglobin (Bld) [Mass/Vol] 13.5 g/dL 13.0-16.5 [facility] Blood lymphocytes/100 leukoc ytesOrdered By: Renard Burgos on 09-12-2022 Lymphocytes/100 WBC (Bld) 28.8 % 19-41 [facility] Blood monocytes/100 leukocyt esOrdered By: Renard Burgos on 09-12-2022 Monocytes/100 WBC (Bld) 6.1 % 0-10 [facility] Blood platelet mean volumeOr dered By: Renard Burgos on 09-12-2022 Platelet mean volume (Bld) [Entitic vol] 10.7 fL 6.2-12.0 [facility] Determination of erythrocyte mean corpuscular volume (MCV)Ordered By: Renard Burgos on 09-12-2022 MCV (RBC) [Entitic vol] 91.4 fL 80-94 [facility] Hematocrit Auto (Bld) [Volum e fraction]Ordered By: Renard Burgos on 09-12-2022 Hematocrit (Bld) [Volume fraction] 40.2 % 40-54 [facility] Laboratory - Hematology and Cell countsOrdered By: Renard Burgos on 09-12-2022 Erythrocyte distribution width (RBC) [Entitic vol] 41.3 fL 35.1-43.9 [facility] Erythrocyte distribution width (RBC) [Ratio] 12.5 % 11.6-14.6 [facility] Immature granulocytes/100 WBC (Bld) 0.300 % 0.0-0.9 [facility] Comment on above: IG% - Immature Granu locytes (promyelocytes, myelocytes and metamyelocytes) > 1% indicates that a LEFT SHIFT is Present. MCH (RBC) [Entitic mass] 30.7 pg 27.0-32.0 [facility] Nucleated RBC/100 WBC (Bld) [Ratio] 0 % 0-5 [facility] MCHC Auto (RBC) [Mass/Vol]Or dered By: Renard Burgos on 09-12-2022 MCHC (RBC) [Mass/Vol] 33.6 g/dL 32-36 [facility] Platelets bldOrdered By: Lyubov Burgos on 09-12-2022 Platelets (Bld) [#/Vol] 197 10*3/uL 150-450 [facility] Absolute lymphocyte countOrd ered By: Renard Burgos on 09-05-2022 Lymphocytes Auto (Unsp spec) [#/Vol] 1.94 10*3/uL 0.83-4.51 [facility] Basophil percentageOrdered B y: Renard Burgos on 09-05-2022 Basophils/100 WBC (Bld) 0.5 % 0-1 [facility] Cholesterol [Mass/Vol] 136 mg/dL <200 [facility] Comment on above: <200 mg/dL Desirable 200-240 mg/dL Borderline >240 mg/dL High Risk Eosinophils/100 WBC (Bld) 0.4 % 0-5 [facility] Neutrophils (Bld) [#/Vol] 5.4 10*3/uL 2.0-7.7 [facility] Neutrophils/100 WBC (Bld) 67.5 % 47-70 [facility] Triglyceride [Mass/Vol] 304 mg/dL <199 [facility] Comment on above: The drugs N-Acetylcy steine and Metamizole may falsely depress this assay.Serum Triglycerides Reference Interval Normal <150 mg/dL Borderline high 150 - 199 mg/dL High 200 - 499 mg/dL Very High > or = 500 mg/dL WBC (Bld) [#/Vol] 7.9 10*3/uL 4.4-11.0 [facility] Blood erythrocytes count (nu mber/volume)Ordered By: Renard Burgos on 09-05-2022 RBC (Bld) [#/Vol] 4.28 10*6/uL 4.6-6.2 [facility] Blood hemoglobin measurement (mass/volume)Ordered By: Renard Burgos on 09-05-2022 Hemoglobin (Bld) [Mass/Vol] 12.9 g/dL 13.0-16.5 [facility] Blood lymphocytes/100 leukoc ytesOrdered By: Renard Burgos on 09-05-2022 Lymphocytes/100 WBC (Bld) 24.5 % 19-41 [facility] Blood monocytes/100 leukocyt esOrdered By: Renard Burgos on 09-05-2022 Monocytes/100 WBC (Bld) 6.6 % 0-10 [facility] Blood platelet mean volumeOr dered By: Renard Burgos on 09-05-2022 Platelet mean volume (Bld) [Entitic vol] 10.7 fL 6.2-12.0 [facility] Determination of erythrocyte mean corpuscular volume (MCV)Ordered By: Renard Burgos on 09-05-2022 MCV (RBC) [Entitic vol] 91.4 fL 80-94 [facility] Hematocrit Auto (Bld) [Volum e fraction]Ordered By: Renard Burgos on 09-05-2022 Hematocrit (Bld) [Volume fraction] 39.1 % 40-54 [facility] Laboratory - Hematology and Cell countsOrdered By: Renard Burgos on 09-05-2022 Erythrocyte distribution width (RBC) [Entitic vol] 41.5 fL 35.1-43.9 [facility] Erythrocyte distribution width (RBC) [Ratio] 12.6 % 11.6-14.6 [facility] Immature granulocytes/100 WBC (Bld) 0.500 % 0.0-0.9 [facility] Comment on above: IG% - Immature Granu locytes (promyelocytes, myelocytes and metamyelocytes) > 1% indicates that a LEFT SHIFT is Present. MCH (RBC) [Entitic mass] 30.1 pg 27.0-32.0 [facility] Nucleated RBC/100 WBC (Bld) [Ratio] 0 % 0-5 [facility] MCHC Auto (RBC) [Mass/Vol]Or dered By: Renard Burgos on 09-05-2022 MCHC (RBC) [Mass/Vol] 33.0 g/dL 32-36 [facility] Platelets bldOrdered By: Lyubov Burgos on 09-05-2022 Platelets (Bld) [#/Vol] 200 10*3/uL 150-450 [facility] Serum or plasma cholesterol in HDL measurement (mass/volume)Ordered By: Renard Burgos on 09-05-2022 Cholesterol in HDL [Mass/Vol] 24 mg/dL >40 [facility] Comment on above: The drugs N-Acetylcy steine and Metamizole may falsely depress this assay. Reference Range HDL <40 mg/dL Low HDL Cholesterol HDL >or= 60 mg/dL High HDL Cholesterol Serum or plasma cholesterol in VLDL measurement (mass/volume)Ordered By: Renard Burgos on 09-05-2022 Cholesterol in VLDL [Mass/Vol] 61 mg/dL 5-40 [facility] Serum or plasma low density lipoprotein (LDL) cholesterol measurement (mass/volume)Ordered By: Renard Burgos on 09-05-2022 Cholesterol in LDL [Mass/Vol] 51 mg/dL 0-130 [facility] Absolute lymphocyte countOrd ered By: Renard Burgos on 08-29-2022 Lymphocytes Auto (Unsp spec) [#/Vol] 1.91 10*3/uL 0.83-4.51 [facility] Basophil percentageOrdered B y: Renard Burgos on 08-29-2022 Basophils/100 WBC (Bld) 0.4 % 0-1 [facility] Eosinophils/100 WBC (Bld) 0.4 % 0-5 [facility] Neutrophils (Bld) [#/Vol] 4.8 10*3/uL 2.0-7.7 [facility] Neutrophils/100 WBC (Bld) 66.0 % 47-70 [facility] WBC (Bld) [#/Vol] 7.3 10*3/uL 4.4-11.0 [facility] Blood erythrocytes count (nu mber/volume)Ordered By: Renard Burgos on 08-29-2022 RBC (Bld) [#/Vol] 4.43 10*6/uL 4.6-6.2 [facility] Blood hemoglobin measurement (mass/volume)Ordered By: Renard Burgos on 08-29-2022 Hemoglobin (Bld) [Mass/Vol] 13.6 g/dL 13.0-16.5 [facility] Blood lymphocytes/100 leukoc ytesOrdered By: Renard Burgos on 08-29-2022 Lymphocytes/100 WBC (Bld) 26.2 % 19-41 [facility] Blood monocytes/100 leukocyt esOrdered By: Renard Burgos on 08-29-2022 Monocytes/100 WBC (Bld) 6.6 % 0-10 [facility] Blood platelet mean volumeOr dered By: Renard Burgos on 08-29-2022 Platelet mean volume (Bld) [Entitic vol] 11.0 fL 6.2-12.0 [facility] Determination of erythrocyte mean corpuscular volume (MCV)Ordered By: Renard Burgos on 08-29-2022 MCV (RBC) [Entitic vol] 92.1 fL 80-94 [facility] Hematocrit Auto (Bld) [Volum e fraction]Ordered By: Renard Burgos on 08-29-2022 Hematocrit (Bld) [Volume fraction] 40.8 % 40-54 [facility] Laboratory - Hematology and Cell countsOrdered By: Renard Burgos on 08-29-2022 Erythrocyte distribution width (RBC) [Entitic vol] 42.0 fL 35.1-43.9 [facility] Erythrocyte distribution width (RBC) [Ratio] 12.4 % 11.6-14.6 [facility] Immature granulocytes/100 WBC (Bld) 0.400 % 0.0-0.9 [facility] Comment on above: IG% - Immature Granu locytes (promyelocytes, myelocytes and metamyelocytes) > 1% indicates that a LEFT SHIFT is Present. MCH (RBC) [Entitic mass] 30.7 pg 27.0-32.0 [facility] Nucleated RBC/100 WBC (Bld) [Ratio] 0 % 0-5 [facility] MCHC Auto (RBC) [Mass/Vol]Or dered By: Renard Burgos on 08-29-2022 MCHC (RBC) [Mass/Vol] 33.3 g/dL 32-36 [facility] Platelets bldOrdered By: Lyubov Burgos on 08-29-2022 Platelets (Bld) [#/Vol] 195 10*3/uL 150-450 [facility] Absolute lymphocyte countOrd ered By: Renard Burgos on 08-22-2022 Lymphocytes Auto (Unsp spec) [#/Vol] 1.86 10*3/uL 0.83-4.51 [facility] Basophil percentageOrdered B y: Renard Burgos on 08-22-2022 Basophils/100 WBC (Bld) 0.4 % 0-1 [facility] Eosinophils/100 WBC (Bld) 0.4 % 0-5 [facility] Neutrophils (Bld) [#/Vol] 6.5 10*3/uL 2.0-7.7 [facility] Neutrophils/100 WBC (Bld) 70.5 % 47-70 [facility] WBC (Bld) [#/Vol] 9.3 10*3/uL 4.4-11.0 [facility] Blood erythrocytes count (nu mber/volume)Ordered By: Renard Burgos on 08-22-2022 RBC (Bld) [#/Vol] 4.55 10*6/uL 4.6-6.2 [facility] Blood hemoglobin measurement (mass/volume)Ordered By: Renard Burgos on 08-22-2022 Hemoglobin (Bld) [Mass/Vol] 14.1 g/dL 13.0-16.5 [facility] Blood lymphocytes/100 leukoc ytesOrdered By: Renard Burgos on 08-22-2022 Lymphocytes/100 WBC (Bld) 20.1 % 19-41 [facility] Blood monocytes/100 leukocyt esOrdered By: Renard Burgos on 08-22-2022 Monocytes/100 WBC (Bld) 8.3 % 0-10 [facility] Blood platelet mean volumeOr dered By: Renard Burgos on 08-22-2022 Platelet mean volume (Bld) [Entitic vol] 10.8 fL 6.2-12.0 [facility] Determination of erythrocyte mean corpuscular volume (MCV)Ordered By: Renard Burgos on 08-22-2022 MCV (RBC) [Entitic vol] 91.9 fL 80-94 [facility] Hematocrit Auto (Bld) [Volum e fraction]Ordered By: Renard Burgos on 08-22-2022 Hematocrit (Bld) [Volume fraction] 41.8 % 40-54 [facility] Laboratory - Hematology and Cell countsOrdered By: Renard Burgos on 08-22-2022 Erythrocyte distribution width (RBC) [Entitic vol] 42.5 fL 35.1-43.9 [facility] Erythrocyte distribution width (RBC) [Ratio] 12.6 % 11.6-14.6 [facility] Immature granulocytes/100 WBC (Bld) 0.300 % 0.0-0.9 [facility] Comment on above: IG% - Immature Granu locytes (promyelocytes, myelocytes and metamyelocytes) > 1% indicates that a LEFT SHIFT is Present. MCH (RBC) [Entitic mass] 31.0 pg 27.0-32.0 [facility] Nucleated RBC/100 WBC (Bld) [Ratio] 0 % 0-5 [facility] MCHC Auto (RBC) [Mass/Vol]Or dered By: Renard Burgos on 08-22-2022 MCHC (RBC) [Mass/Vol] 33.7 g/dL 32-36 [facility] Platelets bldOrdered By: Lyubov Burgos on 08-22-2022 Platelets (Bld) [#/Vol] 197 10*3/uL 150-450 [facility] Absolute lymphocyte countOrd ered By: Renard Burgos on 08-15-2022 Lymphocytes Auto (Unsp spec) [#/Vol] 1.88 10*3/uL 0.83-4.51 [facility] Basophil percentageOrdered B y: Renard Burgos on 08-15-2022 Basophils/100 WBC (Bld) 0.5 % 0-1 [facility] Eosinophils/100 WBC (Bld) 0.5 % 0-5 [facility] Neutrophils (Bld) [#/Vol] 5.1 10*3/uL 2.0-7.7 [facility] Neutrophils/100 WBC (Bld) 65.0 % 47-70 [facility] WBC (Bld) [#/Vol] 7.9 10*3/uL 4.4-11.0 [facility] Blood erythrocytes count (nu mber/volume)Ordered By: Renard Burgos on 08-15-2022 RBC (Bld) [#/Vol] 4.48 10*6/uL 4.6-6.2 [facility] Blood hemoglobin measurement (mass/volume)Ordered By: Renard Burgos on 08-15-2022 Hemoglobin (Bld) [Mass/Vol] 13.7 g/dL 13.0-16.5 [facility] Blood lymphocytes/100 leukoc ytesOrdered By: Renard Burgos on 08-15-2022 Lymphocytes/100 WBC (Bld) 23.9 % 19-41 [facility] Blood monocytes/100 leukocyt esOrdered By: Rneard Burgos on 08-15-2022 Monocytes/100 WBC (Bld) 9.8 % 0-10 [facility] Blood platelet mean volumeOr dered By: Renard Burgos on 08-15-2022 Platelet mean volume (Bld) [Entitic vol] 10.7 fL 6.2-12.0 [facility] Determination of erythrocyte mean corpuscular volume (MCV)Ordered By: Renrad Burgos on 08-15-2022 MCV (RBC) [Entitic vol] 91.1 fL 80-94 [facility] Hematocrit Auto (Bld) [Volum e fraction]Ordered By: Renard Burgos on 08-15-2022 Hematocrit (Bld) [Volume fraction] 40.8 % 40-54 [facility] Laboratory - Hematology and Cell countsOrdered By: Renard Burgos on 08-15-2022 Erythrocyte distribution width (RBC) [Entitic vol] 41.0 fL 35.1-43.9 [facility] Erythrocyte distribution width (RBC) [Ratio] 12.4 % 11.6-14.6 [facility] Immature granulocytes/100 WBC (Bld) 0.300 % 0.0-0.9 [facility] Comment on above: IG% - Immature Granu locytes (promyelocytes, myelocytes and metamyelocytes) > 1% indicates that a LEFT SHIFT is Present. MCH (RBC) [Entitic mass] 30.6 pg 27.0-32.0 [facility] Nucleated RBC/100 WBC (Bld) [Ratio] 0 % 0-5 [facility] MCHC Auto (RBC) [Mass/Vol]Or dered By: Renard Burgos on 08-15-2022 MCHC (RBC) [Mass/Vol] 33.6 g/dL 32-36 [facility] Platelets bldOrdered By: Lyubov Burgos on 08-15-2022 Platelets (Bld) [#/Vol] 212 10*3/uL 150-450 [facility] Absolute lymphocyte countOrd ered By: Renard Burgos on 08-08-2022 Lymphocytes Auto (Unsp spec) [#/Vol] 1.96 10*3/uL 0.83-4.51 [facility] Basophil percentageOrdered B y: Renard Burgos on 08-08-2022 Basophils/100 WBC (Bld) 0.5 % 0-1 [facility] Eosinophils/100 WBC (Bld) 0.5 % 0-5 [facility] Neutrophils (Bld) [#/Vol] 4.7 10*3/uL 2.0-7.7 [facility] Neutrophils/100 WBC (Bld) 64.1 % 47-70 [facility] WBC (Bld) [#/Vol] 7.4 10*3/uL 4.4-11.0 [facility] Blood erythrocytes count (nu mber/volume)Ordered By: Renard Burgos on 08-08-2022 RBC (Bld) [#/Vol] 4.44 10*6/uL 4.6-6.2 [facility] Blood hemoglobin measurement (mass/volume)Ordered By: Renard Burgos on 08-08-2022 Hemoglobin (Bld) [Mass/Vol] 13.6 g/dL 13.0-16.5 [facility] Blood lymphocytes/100 leukoc ytesOrdered By: Renard Burgos on 08-08-2022 Lymphocytes/100 WBC (Bld) 26.5 % 19-41 [facility] Blood monocytes/100 leukocyt esOrdered By: Renard Burgos on 08-08-2022 Monocytes/100 WBC (Bld) 8.1 % 0-10 [facility] Blood platelet mean volumeOr dered By: Renard Burgos on 08-08-2022 Platelet mean volume (Bld) [Entitic vol] 10.8 fL 6.2-12.0 [facility] Determination of erythrocyte mean corpuscular volume (MCV)Ordered By: Renard Burgos on 08-08-2022 MCV (RBC) [Entitic vol] 91.7 fL 80-94 [facility] Hematocrit Auto (Bld) [Volum e fraction]Ordered By: Renard Burgos on 08-08-2022 Hematocrit (Bld) [Volume fraction] 40.7 % 40-54 [facility] Laboratory - Hematology and Cell countsOrdered By: Renard Burgos on 08-08-2022 Erythrocyte distribution width (RBC) [Entitic vol] 42.7 fL 35.1-43.9 [facility] Erythrocyte distribution width (RBC) [Ratio] 12.6 % 11.6-14.6 [facility] Immature granulocytes/100 WBC (Bld) 0.300 % 0.0-0.9 [facility] Comment on above: IG% - Immature Granu locytes (promyelocytes, myelocytes and metamyelocytes) > 1% indicates that a LEFT SHIFT is Present. MCH (RBC) [Entitic mass] 30.6 pg 27.0-32.0 [facility] Nucleated RBC/100 WBC (Bld) [Ratio] 0 % 0-5 [facility] MCHC Auto (RBC) [Mass/Vol]Or dered By: Renard Burgos on 08-08-2022 MCHC (RBC) [Mass/Vol] 33.4 g/dL 32-36 [facility] Platelets bldOrdered By: Lyubov Burgos on 08-08-2022 Platelets (Bld) [#/Vol] 187 10*3/uL 150-450 [facility] Absolute lymphocyte countOrd ered By: Renard Burgos on 08-01-2022 Lymphocytes Auto (Unsp spec) [#/Vol] 2.09 10*3/uL 0.83-4.51 [facility] Basophil percentageOrdered B y: Renard Burgos on 08-01-2022 Basophils/100 WBC (Bld) 0.4 % 0-1 [facility] Eosinophils/100 WBC (Bld) 0.4 % 0-5 [facility] Neutrophils (Bld) [#/Vol] 6.6 10*3/uL 2.0-7.7 [facility] Neutrophils/100 WBC (Bld) 69.1 % 47-70 [facility] WBC (Bld) [#/Vol] 9.5 10*3/uL 4.4-11.0 [facility] Blood erythrocytes count (nu mber/volume)Ordered By: Renard Burgos on 08-01-2022 RBC (Bld) [#/Vol] 4.48 10*6/uL 4.6-6.2 [facility] Blood hemoglobin measurement (mass/volume)Ordered By: Renard Burgos on 08-01-2022 Hemoglobin (Bld) [Mass/Vol] 13.9 g/dL 13.0-16.5 [facility] Blood lymphocytes/100 leukoc ytesOrdered By: Renard Burgos on 08-01-2022 Lymphocytes/100 WBC (Bld) 21.9 % 19-41 [facility] Blood monocytes/100 leukocyt esOrdered By: Renard Burgos on 08-01-2022 Monocytes/100 WBC (Bld) 7.9 % 0-10 [facility] Blood platelet mean volumeOr dered By: Renard Burgos on 08-01-2022 Platelet mean volume (Bld) [Entitic vol] 11.0 fL 6.2-12.0 [facility] Determination of erythrocyte mean corpuscular volume (MCV)Ordered By: Renard Burgos on 08-01-2022 MCV (RBC) [Entitic vol] 91.5 fL 80-94 [facility] Hematocrit Auto (Bld) [Volum e fraction]Ordered By: Renard Burgos on 08-01-2022 Hematocrit (Bld) [Volume fraction] 41.0 % 40-54 [facility] Laboratory - Hematology and Cell countsOrdered By: Renard Burgos on 08-01-2022 Erythrocyte distribution width (RBC) [Entitic vol] 41.6 fL 35.1-43.9 [facility] Erythrocyte distribution width (RBC) [Ratio] 12.5 % 11.6-14.6 [facility] Immature granulocytes/100 WBC (Bld) 0.300 % 0.0-0.9 [facility] Comment on above: IG% - Immature Granu locytes (promyelocytes, myelocytes and metamyelocytes) > 1% indicates that a LEFT SHIFT is Present. MCH (RBC) [Entitic mass] 31.0 pg 27.0-32.0 [facility] Nucleated RBC/100 WBC (Bld) [Ratio] 0 % 0-5 [facility] MCHC Auto (RBC) [Mass/Vol]Or dered By: Renard Burgos on 08-01-2022 MCHC (RBC) [Mass/Vol] 33.9 g/dL 32-36 [facility] Platelets bldOrdered By: Lyubov Burgos on 08-01-2022 Platelets (Bld) [#/Vol] 208 10*3/uL 150-450 [facility] Absolute lymphocyte countOrd ered By: Renard Burgos on 07-25-2022 Lymphocytes Auto (Unsp spec) [#/Vol] 2.16 10*3/uL 0.83-4.51 [facility] Basophil percentageOrdered B y: Renard Burgos on 07-25-2022 Basophils/100 WBC (Bld) 0.6 % 0-1 [facility] Eosinophils/100 WBC (Bld) 0.6 % 0-5 [facility] Neutrophils (Bld) [#/Vol] 5.4 10*3/uL 2.0-7.7 [facility] Neutrophils/100 WBC (Bld) 64.5 % 47-70 [facility] WBC (Bld) [#/Vol] 8.4 10*3/uL 4.4-11.0 [facility] Blood erythrocytes count (nu mber/volume)Ordered By: Renard Burgos on 07-25-2022 RBC (Bld) [#/Vol] 4.45 10*6/uL 4.6-6.2 [facility] Blood hemoglobin measurement (mass/volume)Ordered By: Renard Burgos on 07-25-2022 Hemoglobin (Bld) [Mass/Vol] 13.4 g/dL 13.0-16.5 [facility] Blood lymphocytes/100 leukoc ytesOrdered By: Renard Burgos on 07-25-2022 Lymphocytes/100 WBC (Bld) 25.7 % 19-41 [facility] Blood monocytes/100 leukocyt esOrdered By: Renard Burgos on 07-25-2022 Monocytes/100 WBC (Bld) 8.4 % 0-10 [facility] Blood platelet mean volumeOr dered By: Renard Burgos on 07-25-2022 Platelet mean volume (Bld) [Entitic vol] 11.0 fL 6.2-12.0 [facility] Determination of erythrocyte mean corpuscular volume (MCV)Ordered By: Renard Burgos on 07-25-2022 MCV (RBC) [Entitic vol] 92.8 fL 80-94 [facility] Hematocrit Auto (Bld) [Volum e fraction]Ordered By: Renard Burgos on 07-25-2022 Hematocrit (Bld) [Volume fraction] 41.3 % 40-54 [facility] Laboratory - Hematology and Cell countsOrdered By: Renard Burgos on 07-25-2022 Erythrocyte distribution width (RBC) [Entitic vol] 42.5 fL 35.1-43.9 [facility] Erythrocyte distribution width (RBC) [Ratio] 12.5 % 11.6-14.6 [facility] Immature granulocytes/100 WBC (Bld) 0.200 % 0.0-0.9 [facility] Comment on above: IG% - Immature Granu locytes (promyelocytes, myelocytes and metamyelocytes) > 1% indicates that a LEFT SHIFT is Present. MCH (RBC) [Entitic mass] 30.1 pg 27.0-32.0 [facility] Nucleated RBC/100 WBC (Bld) [Ratio] 0 % 0-5 [facility] MCHC Auto (RBC) [Mass/Vol]Or dered By: Renard Burgos on 07-25-2022 MCHC (RBC) [Mass/Vol] 32.4 g/dL 32-36 [facility] Platelets bldOrdered By: Lyubov Burgos on 07-25-2022 Platelets (Bld) [#/Vol] 200 10*3/uL 150-450 [facility] No Panel InformationOrdered By: Renard Burgos on 07-19-2022 Vitamin D 25-Hydroxy 34.2 ng/mL [facility] Comment on above: Vitamin D 25(OH) Sta tus Range Deficiency <20 ng/mL (50nmol/L) Insufficiency 20 - 30 ng/mL (50 - 75 nmol/L) Sufficiency 30 - 100 ng/mL (75 - 250 nmol/L) Toxicity >100 ng/mL (>250 nmol/L) Absolute lymphocyte countOrd ered By: Renard Burgos on 07-18-2022 Lymphocytes Auto (Unsp spec) [#/Vol] 2.48 10*3/uL 0.83-4.51 [facility] Basophil percentageOrdered B y: Renard Burgos on 07-18-2022 Basophils/100 WBC (Bld) 0.5 % 0-1 [facility] Eosinophils/100 WBC (Bld) 0.6 % 0-5 [facility] Neutrophils (Bld) [#/Vol] 5.9 10*3/uL 2.0-7.7 [facility] Neutrophils/100 WBC (Bld) 61.6 % 47-70 [facility] WBC (Bld) [#/Vol] 9.6 10*3/uL 4.4-11.0 [facility] Blood erythrocytes count (nu mber/volume)Ordered By: Renard Burgos on 07-18-2022 RBC (Bld) [#/Vol] 4.56 10*6/uL 4.6-6.2 [facility] Blood hemoglobin measurement (mass/volume)Ordered By: Renard Burgos on 07-18-2022 Hemoglobin (Bld) [Mass/Vol] 13.9 g/dL 13.0-16.5 [facility] Blood lymphocytes/100 leukoc ytesOrdered By: Renard Burgos on 07-18-2022 Lymphocytes/100 WBC (Bld) 25.9 % 19-41 [facility] Blood monocytes/100 leukocyt esOrdered By: Renard Burgos on 07-18-2022 Monocytes/100 WBC (Bld) 11.0 % 0-10 [facility] Blood platelet mean volumeOr dered By: Renard Burgos on 07-18-2022 Platelet mean volume (Bld) [Entitic vol] 11.3 fL 6.2-12.0 [facility] Determination of erythrocyte mean corpuscular volume (MCV)Ordered By: Renard Burgos on 07-18-2022 MCV (RBC) [Entitic vol] 93.9 fL 80-94 [facility] Hematocrit Auto (Bld) [Volum e fraction]Ordered By: Renard Burgos on 07-18-2022 Hematocrit (Bld) [Volume fraction] 42.8 % 40-54 [facility] Laboratory - Hematology and Cell countsOrdered By: Renard Burgos on 07-18-2022 Erythrocyte distribution width (RBC) [Entitic vol] 44.0 fL 35.1-43.9 [facility] Erythrocyte distribution width (RBC) [Ratio] 12.8 % 11.6-14.6 [facility] Immature granulocytes/100 WBC (Bld) 0.400 % 0.0-0.9 [facility] Comment on above: IG% - Immature Granu locytes (promyelocytes, myelocytes and metamyelocytes) > 1% indicates that a LEFT SHIFT is Present. MCH (RBC) [Entitic mass] 30.5 pg 27.0-32.0 [facility] Nucleated RBC/100 WBC (Bld) [Ratio] 0 % 0-5 [facility] MCHC Auto (RBC) [Mass/Vol]Or dered By: Renard uBrgos on 07-18-2022 MCHC (RBC) [Mass/Vol] 32.5 g/dL 32-36 [facility] Platelets bldOrdered By: Lyubov Burgos on 07-18-2022 Platelets (Bld) [#/Vol] 207 10*3/uL 150-450 [facility] Absolute lymphocyte countOrd ered By: Renard Burgos on 07-11-2022 Lymphocytes Auto (Unsp spec) [#/Vol] 2.37 10*3/uL 0.83-4.51 [facility] Basophil percentageOrdered B y: Renard Burgos on 07-11-2022 Basophils/100 WBC (Bld) 0.6 % 0-1 [facility] Eosinophils/100 WBC (Bld) 0.5 % 0-5 [facility] Neutrophils (Bld) [#/Vol] 5.3 10*3/uL 2.0-7.7 [facility] Neutrophils/100 WBC (Bld) 61.8 % 47-70 [facility] WBC (Bld) [#/Vol] 8.5 10*3/uL 4.4-11.0 [facility] Blood erythrocytes count (nu mber/volume)Ordered By: Renard Burgos on 07-11-2022 RBC (Bld) [#/Vol] 4.83 10*6/uL 4.6-6.2 [facility] Blood hemoglobin measurement (mass/volume)Ordered By: Renard Burgos on 07-11-2022 Hemoglobin (Bld) [Mass/Vol] 14.7 g/dL 13.0-16.5 [facility] Blood lymphocytes/100 leukoc ytesOrdered By: Renard Burgos on 07-11-2022 Lymphocytes/100 WBC (Bld) 27.8 % 19-41 [facility] Blood monocytes/100 leukocyt esOrdered By: Renard Burgos on 07-11-2022 Monocytes/100 WBC (Bld) 8.8 % 0-10 [facility] Blood platelet mean volumeOr dered By: Renard Burgos on 07-11-2022 Platelet mean volume (Bld) [Entitic vol] 10.6 fL 6.2-12.0 [facility] Determination of erythrocyte mean corpuscular volume (MCV)Ordered By: Renard Burgos on 07-11-2022 MCV (RBC) [Entitic vol] 90.7 fL 80-94 [facility] Hematocrit Auto (Bld) [Volum e fraction]Ordered By: Renard Burgos on 07-11-2022 Hematocrit (Bld) [Volume fraction] 43.8 % 40-54 [facility] Laboratory - Hematology and Cell countsOrdered By: Renard Burgos on 07-11-2022 Erythrocyte distribution width (RBC) [Entitic vol] 41.2 fL 35.1-43.9 [facility] Erythrocyte distribution width (RBC) [Ratio] 12.7 % 11.6-14.6 [facility] Immature granulocytes/100 WBC (Bld) 0.500 % 0.0-0.9 [facility] Comment on above: IG% - Immature Granu locytes (promyelocytes, myelocytes and metamyelocytes) > 1% indicates that a LEFT SHIFT is Present. MCH (RBC) [Entitic mass] 30.4 pg 27.0-32.0 [facility] Nucleated RBC/100 WBC (Bld) [Ratio] 0 % 0-5 [facility] MCHC Auto (RBC) [Mass/Vol]Or dered By: Renard Burgos on 07-11-2022 MCHC (RBC) [Mass/Vol] 33.6 g/dL 32-36 [facility] Platelets bldOrdered By: [facility] lizy Loretta on 07-11-2022 Platelets (Bld) [#/Vol] 207 10*3/uL 150-450 [facility] Absolute lymphocyte countOrd ered By: Renard Burgos on 07-04-2022 Lymphocytes Auto (Unsp spec) [#/Vol] 1.87 10*3/uL 0.83-4.51 [facility] Basophil percentageOrdered B y: Renard Burgos on 07-04-2022 Basophils/100 WBC (Bld) 0.4 % 0-1 [facility] Eosinophils/100 WBC (Bld) 0.5 % 0-5 [facility] Neutrophils (Bld) [#/Vol] 7.5 10*3/uL 2.0-7.7 [facility] Neutrophils/100 WBC (Bld) 72.8 % 47-70 [facility] WBC (Bld) [#/Vol] 10.3 10*3/uL 4.4-11.0 [facility] Blood erythrocytes count (nu mber/volume)Ordered By: Renard Burgos on 07-04-2022 RBC (Bld) [#/Vol] 4.45 10*6/uL 4.6-6.2 [facility] Blood hemoglobin measurement (mass/volume)Ordered By: Renard Burgos on 07-04-2022 Hemoglobin (Bld) [Mass/Vol] 13.5 g/dL 13.0-16.5 [facility] Blood lymphocytes/100 leukoc ytesOrdered By: Renard Burgos on 07-04-2022 Lymphocytes/100 WBC (Bld) 18.1 % 19-41 [facility] Blood monocytes/100 leukocyt esOrdered By: Renard Burgos on 07-04-2022 Monocytes/100 WBC (Bld) 7.7 % 0-10 [facility] Blood platelet mean volumeOr dered By: Renard Burgos on 07-04-2022 Platelet mean volume (Bld) [Entitic vol] 11.3 fL 6.2-12.0 [facility] Determination of erythrocyte mean corpuscular volume (MCV)Ordered By: Renard Burgos on 07-04-2022 MCV (RBC) [Entitic vol] 93.0 fL 80-94 [facility] Hematocrit Auto (Bld) [Volum e fraction]Ordered By: Renard Burgos on 07-04-2022 Hematocrit (Bld) [Volume fraction] 41.4 % 40-54 [facility] Laboratory - Hematology and Cell countsOrdered By: Renard Burgos on 07-04-2022 Erythrocyte distribution width (RBC) [Entitic vol] 43.0 fL 35.1-43.9 [facility] Erythrocyte distribution width (RBC) [Ratio] 12.5 % 11.6-14.6 [facility] Immature granulocytes/100 WBC (Bld) 0.500 % 0.0-0.9 [facility] Comment on above: IG% - Immature Granu locytes (promyelocytes, myelocytes and metamyelocytes) > 1% indicates that a LEFT SHIFT is Present. MCH (RBC) [Entitic mass] 30.3 pg 27.0-32.0 [facility] Nucleated RBC/100 WBC (Bld) [Ratio] 0 % 0-5 [facility] MCHC Auto (RBC) [Mass/Vol]Or dered By: Renard Burgos on 07-04-2022 MCHC (RBC) [Mass/Vol] 32.6 g/dL 32-36 [facility] Platelets bldOrdered By: Lyubov Burgos on 07-04-2022 Platelets (Bld) [#/Vol] 211 10*3/uL 150-450 [facility] Absolute lymphocyte countOrd ered By: Renard Burgos on 06-27-2022 Lymphocytes Auto (Unsp spec) [#/Vol] 1.83 10*3/uL 0.83-4.51 [facility] Basophil percentageOrdered B y: Renard Burgos on 06-27-2022 Basophils/100 WBC (Bld) 0.4 % 0-1 [facility] Eosinophils/100 WBC (Bld) 0.5 % 0-5 [facility] Neutrophils (Bld) [#/Vol] 5.0 10*3/uL 2.0-7.7 [facility] Neutrophils/100 WBC (Bld) 67.6 % 47-70 [facility] WBC (Bld) [#/Vol] 7.4 10*3/uL 4.4-11.0 [facility] Blood erythrocytes count (nu mber/volume)Ordered By: Renard Burgos on 06-27-2022 RBC (Bld) [#/Vol] 4.52 10*6/uL 4.6-6.2 [facility] Blood hemoglobin measurement (mass/volume)Ordered By: Renard Burgos on 06-27-2022 Hemoglobin (Bld) [Mass/Vol] 13.9 g/dL 13.0-16.5 [facility] Blood lymphocytes/100 leukoc ytesOrdered By: Renard Burgos on 06-27-2022 Lymphocytes/100 WBC (Bld) 24.7 % 19-41 [facility] Blood monocytes/100 leukocyt esOrdered By: Renard Burgos on 06-27-2022 Monocytes/100 WBC (Bld) 6.4 % 0-10 [facility] Blood platelet mean volumeOr dered By: Renard Burgos on 06-27-2022 Platelet mean volume (Bld) [Entitic vol] 10.7 fL 6.2-12.0 [facility] Determination of erythrocyte mean corpuscular volume (MCV)Ordered By: Renard Burgos on 06-27-2022 MCV (RBC) [Entitic vol] 91.2 fL 80-94 [facility] Hematocrit Auto (Bld) [Volum e fraction]Ordered By: Renard Burgos on 06-27-2022 Hematocrit (Bld) [Volume fraction] 41.2 % 40-54 [facility] Laboratory - Hematology and Cell countsOrdered By: Renard Burgos on 06-27-2022 Erythrocyte distribution width (RBC) [Entitic vol] 41.9 fL 35.1-43.9 [facility] Erythrocyte distribution width (RBC) [Ratio] 12.7 % 11.6-14.6 [facility] Immature granulocytes/100 WBC (Bld) 0.400 % 0.0-0.9 [facility] Comment on above: IG% - Immature Granu locytes (promyelocytes, myelocytes and metamyelocytes) > 1% indicates that a LEFT SHIFT is Present. MCH (RBC) [Entitic mass] 30.8 pg 27.0-32.0 [facility] Nucleated RBC/100 WBC (Bld) [Ratio] 0 % 0-5 [facility] MCHC Auto (RBC) [Mass/Vol]Or dered By: Renard Burgos on 06-27-2022 MCHC (RBC) [Mass/Vol] 33.7 g/dL 32-36 [facility] Platelets bldOrdered By: Lyubov Burgos on 06-27-2022 Platelets (Bld) [#/Vol] 200 10*3/uL 150-450 [facility] Absolute lymphocyte countOrd ered By: Renard Burgos on 06-20-2022 Lymphocytes Auto (Unsp spec) [#/Vol] 1.57 10*3/uL 0.83-4.51 [facility] Basophil percentageOrdered B y: Renard Burgos on 06-20-2022 Basophils/100 WBC (Bld) 0.2 % 0-1 [facility] Eosinophils/100 WBC (Bld) 0.2 % 0-5 [facility] Neutrophils (Bld) [#/Vol] 6.5 10*3/uL 2.0-7.7 [facility] Neutrophils/100 WBC (Bld) 74.5 % 47-70 [facility] WBC (Bld) [#/Vol] 8.8 10*3/uL 4.4-11.0 [facility] Blood erythrocytes count (nu mber/volume)Ordered By: Renard Burgos on 06-20-2022 RBC (Bld) [#/Vol] 4.79 10*6/uL 4.6-6.2 [facility] Blood hemoglobin measurement (mass/volume)Ordered By: Renard Burgos on 06-20-2022 Hemoglobin (Bld) [Mass/Vol] 14.6 g/dL 13.0-16.5 [facility] Blood lymphocytes/100 leukoc ytesOrdered By: Renard Burgos on 06-20-2022 Lymphocytes/100 WBC (Bld) 17.8 % 19-41 [facility] Blood monocytes/100 leukocyt esOrdered By: Renard Burgos on 06-20-2022 Monocytes/100 WBC (Bld) 7.0 % 0-10 [facility] Blood platelet mean volumeOr dered By: Renard Burgos on 06-20-2022 Platelet mean volume (Bld) [Entitic vol] 11.1 fL 6.2-12.0 [facility] Determination of erythrocyte mean corpuscular volume (MCV)Ordered By: Renard Burgos on 06-20-2022 MCV (RBC) [Entitic vol] 92.1 fL 80-94 [facility] Hematocrit Auto (Bld) [Volum e fraction]Ordered By: Renard Burgos on 06-20-2022 Hematocrit (Bld) [Volume fraction] 44.1 % 40-54 [facility] Laboratory - Hematology and Cell countsOrdered By: Renard Burgos on 06-20-2022 Erythrocyte distribution width (RBC) [Entitic vol] 42.4 fL 35.1-43.9 [facility] Erythrocyte distribution width (RBC) [Ratio] 12.6 % 11.6-14.6 [facility] Immature granulocytes/100 WBC (Bld) 0.300 % 0.0-0.9 [facility] Comment on above: IG% - Immature Granu locytes (promyelocytes, myelocytes and metamyelocytes) > 1% indicates that a LEFT SHIFT is Present. MCH (RBC) [Entitic mass] 30.5 pg 27.0-32.0 [facility] Nucleated RBC/100 WBC (Bld) [Ratio] 0 % 0-5 [facility] MCHC Auto (RBC) [Mass/Vol]Or dered By: Renard Burgos on 06-20-2022 MCHC (RBC) [Mass/Vol] 33.1 g/dL 32-36 [facility] Platelets bldOrdered By: Lyubov Burgos on 06-20-2022 Platelets (Bld) [#/Vol] 207 10*3/uL 150-450 [facility] Absolute lymphocyte countOrd ered By: Renard Burgos on 06-13-2022 Lymphocytes Auto (Unsp spec) [#/Vol] 2.28 10*3/uL 0.83-4.51 [facility] Basophil percentageOrdered B y: Renard Burgos on 06-13-2022 Basophils/100 WBC (Bld) 0.5 % 0-1 [facility] Eosinophils/100 WBC (Bld) 0.4 % 0-5 [facility] Neutrophils (Bld) [#/Vol] 6.0 10*3/uL 2.0-7.7 [facility] Neutrophils/100 WBC (Bld) 65.6 % 47-70 [facility] WBC (Bld) [#/Vol] 9.2 10*3/uL 4.4-11.0 [facility] Blood erythrocytes count (nu mber/volume)Ordered By: Renard Burgos on 06-13-2022 RBC (Bld) [#/Vol] 4.55 10*6/uL 4.6-6.2 [facility] Blood hemoglobin measurement (mass/volume)Ordered By: Renard Burgos on 06-13-2022 Hemoglobin (Bld) [Mass/Vol] 13.7 g/dL 13.0-16.5 [facility] Blood lymphocytes/100 leukoc ytesOrdered By: Renard Burgos on 06-13-2022 Lymphocytes/100 WBC (Bld) 24.9 % 19-41 [facility] Blood monocytes/100 leukocyt esOrdered By: Renard Burgos on 06-13-2022 Monocytes/100 WBC (Bld) 8.2 % 0-10 [facility] Blood platelet mean volumeOr dered By: Renard Burgos on 06-13-2022 Platelet mean volume (Bld) [Entitic vol] 10.9 fL 6.2-12.0 [facility] Determination of erythrocyte mean corpuscular volume (MCV)Ordered By: Renard Burgos on 06-13-2022 MCV (RBC) [Entitic vol] 92.3 fL 80-94 [facility] Hematocrit Auto (Bld) [Volum e fraction]Ordered By: Renard Burgos on 06-13-2022 Hematocrit (Bld) [Volume fraction] 42.0 % 40-54 [facility] Laboratory - Hematology and Cell countsOrdered By: Renard Burgos on 06-13-2022 Erythrocyte distribution width (RBC) [Entitic vol] 43.2 fL 35.1-43.9 [facility] Erythrocyte distribution width (RBC) [Ratio] 12.8 % 11.6-14.6 [facility] Immature granulocytes/100 WBC (Bld) 0.400 % 0.0-0.9 [facility] Comment on above: IG% - Immature Granu locytes (promyelocytes, myelocytes and metamyelocytes) > 1% indicates that a LEFT SHIFT is Present. MCH (RBC) [Entitic mass] 30.1 pg 27.0-32.0 [facility] Nucleated RBC/100 WBC (Bld) [Ratio] 0 % 0-5 [facility] MCHC Auto (RBC) [Mass/Vol]Or dered By: Renard Burgos on 06-13-2022 MCHC (RBC) [Mass/Vol] 32.6 g/dL 32-36 [facility] Platelets bldOrdered By: Lyubov Burgos on 06-13-2022 Platelets (Bld) [#/Vol] 203 10*3/uL 150-450 [facility] Absolute lymphocyte countOrd ered By: Renard Burgos on 06-06-2022 Lymphocytes Auto (Unsp spec) [#/Vol] 2.02 10*3/uL 0.83-4.51 [facility] Basophil percentageOrdered B y: Renard Burgos on 06-06-2022 Basophils/100 WBC (Bld) 0.5 % 0-1 [facility] Eosinophils/100 WBC (Bld) 0.7 % 0-5 [facility] Neutrophils (Bld) [#/Vol] 4.7 10*3/uL 2.0-7.7 [facility] Neutrophils/100 WBC (Bld) 63.3 % 47-70 [facility] WBC (Bld) [#/Vol] 7.4 10*3/uL 4.4-11.0 [facility] Blood erythrocytes count (nu mber/volume)Ordered By: Renard Burgos on 06-06-2022 RBC (Bld) [#/Vol] 4.57 10*6/uL 4.6-6.2 [facility] Blood hemoglobin measurement (mass/volume)Ordered By: Renard Burgos on 06-06-2022 Hemoglobin (Bld) [Mass/Vol] 14.0 g/dL 13.0-16.5 [facility] Blood lymphocytes/100 leukoc ytesOrdered By: Renard Burgos on 06-06-2022 Lymphocytes/100 WBC (Bld) 27.2 % 19-41 [facility] Blood monocytes/100 leukocyt esOrdered By: Renard Burgos on 06-06-2022 Monocytes/100 WBC (Bld) 7.9 % 0-10 [facility] Blood platelet mean volumeOr dered By: Renard Burgos on 06-06-2022 Platelet mean volume (Bld) [Entitic vol] 10.7 fL 6.2-12.0 [facility] Determination of erythrocyte mean corpuscular volume (MCV)Ordered By: Renard Burgos on 06-06-2022 MCV (RBC) [Entitic vol] 90.2 fL 80-94 [facility] Hematocrit Auto (Bld) [Volum e fraction]Ordered By: Renard Burgos on 06-06-2022 Hematocrit (Bld) [Volume fraction] 41.2 % 40-54 [facility] Laboratory - Hematology and Cell countsOrdered By: Renard Burgos on 06-06-2022 Erythrocyte distribution width (RBC) [Entitic vol] 41.5 fL 35.1-43.9 [facility] Erythrocyte distribution width (RBC) [Ratio] 12.7 % 11.6-14.6 [facility] Immature granulocytes/100 WBC (Bld) 0.400 % 0.0-0.9 [facility] Comment on above: IG% - Immature Granu locytes (promyelocytes, myelocytes and metamyelocytes) > 1% indicates that a LEFT SHIFT is Present. MCH (RBC) [Entitic mass] 30.6 pg 27.0-32.0 [facility] Nucleated RBC/100 WBC (Bld) [Ratio] 0 % 0-5 [facility] MCHC Auto (RBC) [Mass/Vol]Or dered By: Renard Burgos on 06-06-2022 MCHC (RBC) [Mass/Vol] 34.0 g/dL 32-36 [facility] Platelets bldOrdered By: Lyubov Burgos on 06-06-2022 Platelets (Bld) [#/Vol] 197 10*3/uL 150-450 [facility] Absolute lymphocyte countOrd ered By: Renard Burgos on 05-30-2022 Lymphocytes Auto (Unsp spec) [#/Vol] 2.32 10*3/uL 0.83-4.51 [facility] Basophil percentageOrdered B y: Renard Burgos on 05-30-2022 Basophils/100 WBC (Bld) 0.4 % 0-1 [facility] Eosinophils/100 WBC (Bld) 0.5 % 0-5 [facility] Neutrophils (Bld) [#/Vol] 5.2 10*3/uL 2.0-7.7 [facility] Neutrophils/100 WBC (Bld) 62.6 % 47-70 [facility] WBC (Bld) [#/Vol] 8.3 10*3/uL 4.4-11.0 [facility] Blood erythrocytes count (nu mber/volume)Ordered By: Renard Burgos on 05-30-2022 RBC (Bld) [#/Vol] 4.87 10*6/uL 4.6-6.2 [facility] Blood hemoglobin measurement (mass/volume)Ordered By: Renard Burgos on 05-30-2022 Hemoglobin (Bld) [Mass/Vol] 14.6 g/dL 13.0-16.5 [facility] Blood lymphocytes/100 leukoc ytesOrdered By: Renard Burgos on 05-30-2022 Lymphocytes/100 WBC (Bld) 27.9 % 19-41 [facility] Blood monocytes/100 leukocyt esOrdered By: Renard Burgos on 05-30-2022 Monocytes/100 WBC (Bld) 8.0 % 0-10 [facility] Blood platelet mean volumeOr dered By: Renard Burgos on 05-30-2022 Platelet mean volume (Bld) [Entitic vol] 10.9 fL 6.2-12.0 [facility] Determination of erythrocyte mean corpuscular volume (MCV)Ordered By: Renard Burgos on 05-30-2022 MCV (RBC) [Entitic vol] 91.6 fL 80-94 [facility] Hematocrit Auto (Bld) [Volum e fraction]Ordered By: Renard Burgos on 05-30-2022 Hematocrit (Bld) [Volume fraction] 44.6 % 40-54 [facility] Laboratory - Hematology and Cell countsOrdered By: Renard Burgos on 05-30-2022 Erythrocyte distribution width (RBC) [Entitic vol] 42.4 fL 35.1-43.9 [facility] Erythrocyte distribution width (RBC) [Ratio] 12.6 % 11.6-14.6 [facility] Immature granulocytes/100 WBC (Bld) 0.600 % 0.0-0.9 [facility] Comment on above: IG% - Immature Granu locytes (promyelocytes, myelocytes and metamyelocytes) > 1% indicates that a LEFT SHIFT is Present. MCH (RBC) [Entitic mass] 30.0 pg 27.0-32.0 [facility] Nucleated RBC/100 WBC (Bld) [Ratio] 0 % 0-5 [facility] MCHC Auto (RBC) [Mass/Vol]Or dered By: Renard Burgos on 05-30-2022 MCHC (RBC) [Mass/Vol] 32.7 g/dL 32-36 [facility] Platelets bldOrdered By: Lyubov Burgos on 05-30-2022 Platelets (Bld) [#/Vol] 213 10*3/uL 150-450 [facility] Absolute lymphocyte countOrd ered By: Renard Burgos on 05-23-2022 Lymphocytes Auto (Unsp spec) [#/Vol] 2.07 10*3/uL 0.83-4.51 [facility] Basophil percentageOrdered B y: Renard Burgos on 05-23-2022 Basophils/100 WBC (Bld) 0.5 % 0-1 [facility] Eosinophils/100 WBC (Bld) 0.4 % 0-5 [facility] Neutrophils (Bld) [#/Vol] 5.7 10*3/uL 2.0-7.7 [facility] Neutrophils/100 WBC (Bld) 66.5 % 47-70 [facility] WBC (Bld) [#/Vol] 8.5 10*3/uL 4.4-11.0 [facility] Blood erythrocytes count (nu mber/volume)Ordered By: Renard Burgos on 05-23-2022 RBC (Bld) [#/Vol] 4.75 10*6/uL 4.6-6.2 [facility] Blood hemoglobin measurement (mass/volume)Ordered By: Renard Burgos on 05-23-2022 Hemoglobin (Bld) [Mass/Vol] 14.3 g/dL 13.0-16.5 [facility] Blood lymphocytes/100 leukoc ytesOrdered By: Renard Burgos on 05-23-2022 Lymphocytes/100 WBC (Bld) 24.4 % 19-41 [facility] Blood monocytes/100 leukocyt esOrdered By: Renard Burgos on 05-23-2022 Monocytes/100 WBC (Bld) 7.7 % 0-10 [facility] Blood platelet mean volumeOr dered By: Renard Burgos on 05-23-2022 Platelet mean volume (Bld) [Entitic vol] 11.1 fL 6.2-12.0 [facility] Determination of erythrocyte mean corpuscular volume (MCV)Ordered By: Renard Burgos on 05-23-2022 MCV (RBC) [Entitic vol] 90.9 fL 80-94 [facility] Hematocrit Auto (Bld) [Volum e fraction]Ordered By: Renard Burgos on 05-23-2022 Hematocrit (Bld) [Volume fraction] 43.2 % 40-54 [facility] Laboratory - Hematology and Cell countsOrdered By: Renard Burgos on 05-23-2022 Erythrocyte distribution width (RBC) [Entitic vol] 41.7 fL 35.1-43.9 [facility] Erythrocyte distribution width (RBC) [Ratio] 12.5 % 11.6-14.6 [facility] Immature granulocytes/100 WBC (Bld) 0.500 % 0.0-0.9 [facility] Comment on above: IG% - Immature Granu locytes (promyelocytes, myelocytes and metamyelocytes) > 1% indicates that a LEFT SHIFT is Present. MCH (RBC) [Entitic mass] 30.1 pg 27.0-32.0 [facility] Nucleated RBC/100 WBC (Bld) [Ratio] 0 % 0-5 [facility] MCHC Auto (RBC) [Mass/Vol]Or dered By: Renard Burgos on 05-23-2022 MCHC (RBC) [Mass/Vol] 33.1 g/dL 32-36 [facility] Platelets bldOrdered By: Pet lizy Burgos on 05-23-2022 Platelets (Bld) [#/Vol] 213 10*3/uL 150-450 [facility] No Panel Informationon 05-20 Dejah Hazel DO 05/20/2022 7:32 PM Feeding Tube Replacement Performed by: Dejah Hazel DO Authorized by: Abelardo Rios DO Consent: Consent obtained: Verbal Consent given by: Patient [place] protocol: Patient identity confirmed: Verbally with patient [...] Procedure completion: Tolerated well, no immediate complications [facility] XR Abdomen Single viewon G-tube position is within the stomach. No evidence of contrast extravasation. Report Dictated on Electronically Signed By: Jason Tran Electronically Signed Date/Time: 05/20/2022 7:38 PM EST [employer] Patient Name: KATHYA HOOPER Exam Date/Time: 05/20/2022 19:18 Procedure: XR ABDOMEN 1 VIEW Ordering Provider: RIOS TYLER Reason For Exam: SUPINE ABDOMEN (KUB) CLINICAL INDICATION: confirm placement of G tube A supine plain film of the abdomen was obtained. Repeat abdominal radiographs following hand injection of enteric contrast via the patient's enteric tube. (Gastrografin 30 mL). COMPARISON: None FINDINGS: On the representative image, no dilated bowel loops are identified. Feeding tube overlies the epigastric region of the abdomen. On the postcontrast images, there is a small amount of enteric contrast in the stomach and contrast is present throughout the proximal duodenum. No extravasated contrast is evident. [employer] Jason Tran M D - 05/20/2022 [...] 30 mL). COMPARISON: None FINDINGS: On the representative image, no dilated bowel loops are identified. [...] Electronically Signed Date/Time: 05/20/2022 7:38 PM EST [facility] Radiology Study observation (narrative) [facility] XR Abdomen Single viewOrdere d By: Jason Tran on 05-20-2022 [facility] [employer] Work Phone: Absolute lymphocyte countOrd ered By: Renard Burgos on 05-16-2022 Lymphocytes Auto (Unsp spec) [#/Vol] 2.06 10*3/uL 0.83-4.51 [facility] Basophil percentageOrdered B y: Renard Burgos on 05-16-2022 Basophils/100 WBC (Bld) 0.6 % 0-1 [facility] Eosinophils/100 WBC (Bld) 0.6 % 0-5 [facility] Neutrophils (Bld) [#/Vol] 4.4 10*3/uL 2.0-7.7 [facility] Neutrophils/100 WBC (Bld) 61.2 % 47-70 [facility] WBC (Bld) [#/Vol] 7.1 10*3/uL 4.4-11.0 [facility] Blood erythrocytes count (nu mber/volume)Ordered By: Renard Burgos on 05-16-2022 RBC (Bld) [#/Vol] 4.58 10*6/uL 4.6-6.2 [facility] Blood hemoglobin measurement (mass/volume)Ordered By: Renard Burgos on 05-16-2022 Hemoglobin (Bld) [Mass/Vol] 13.9 g/dL 13.0-16.5 [facility] Blood lymphocytes/100 leukoc ytesOrdered By: Renard Burgos on 05-16-2022 Lymphocytes/100 WBC (Bld) 29.0 % 19-41 [facility] Blood monocytes/100 leukocyt esOrdered By: Renard Burgos on 05-16-2022 Monocytes/100 WBC (Bld) 8.2 % 0-10 [facility] Blood platelet mean volumeOr dered By: Renard Burgos on 05-16-2022 Platelet mean volume (Bld) [Entitic vol] 11.1 fL 6.2-12.0 [facility] Determination of erythrocyte mean corpuscular volume (MCV)Ordered By: Renard Burgos on 05-16-2022 MCV (RBC) [Entitic vol] 91.5 fL 80-94 [facility] Hematocrit Auto (Bld) [Volum e fraction]Ordered By: Renard Burgos on 05-16-2022 Hematocrit (Bld) [Volume fraction] 41.9 % 40-54 [facility] Laboratory - Hematology and Cell countsOrdered By: Renard Burgos on 05-16-2022 Erythrocyte distribution width (RBC) [Entitic vol] 41.3 fL 35.1-43.9 [facility] Erythrocyte distribution width (RBC) [Ratio] 12.5 % 11.6-14.6 [facility] Immature granulocytes/100 WBC (Bld) 0.400 % 0.0-0.9 [facility] Comment on above: IG% - Immature Granu locytes (promyelocytes, myelocytes and metamyelocytes) > 1% indicates that a LEFT SHIFT is Present. MCH (RBC) [Entitic mass] 30.3 pg 27.0-32.0 [facility] Nucleated RBC/100 WBC (Bld) [Ratio] 0 % 0-5 [facility] MCHC Auto (RBC) [Mass/Vol]Or dered By: Renard Burgos on 05-16-2022 MCHC (RBC) [Mass/Vol] 33.2 g/dL 32-36 [facility] Platelets bldOrdered By: Lyubov lizy Loretta on 05-16-2022 Platelets (Bld) [#/Vol] 205 10*3/uL 150-450 [facility] Absolute lymphocyte countOrd ered By: Renard Burgos on 05-09-2022 Lymphocytes Auto (Unsp spec) [#/Vol] 1.92 10*3/uL 0.83-4.51 [facility] Basophil percentageOrdered B y: Renard Burgos on 05-09-2022 Basophils/100 WBC (Bld) 0.7 % 0-1 [facility] Eosinophils/100 WBC (Bld) 0.7 % 0-5 [facility] Neutrophils (Bld) [#/Vol] 4.3 10*3/uL 2.0-7.7 [facility] Neutrophils/100 WBC (Bld) 60.9 % 47-70 [facility] WBC (Bld) [#/Vol] 7.1 10*3/uL 4.4-11.0 [facility] Blood erythrocytes count (nu mber/volume)Ordered By: Renard Burgos on 05-09-2022 RBC (Bld) [#/Vol] 4.67 10*6/uL 4.6-6.2 [facility] Blood hemoglobin measurement (mass/volume)Ordered By: Renard Burgos on 05-09-2022 Hemoglobin (Bld) [Mass/Vol] 14.1 g/dL 13.0-16.5 [facility] Blood lymphocytes/100 leukoc ytesOrdered By: Renard Burgos on 05-09-2022 Lymphocytes/100 WBC (Bld) 27.2 % 19-41 [facility] Blood monocytes/100 leukocyt esOrdered By: Renard Burgos on 05-09-2022 Monocytes/100 WBC (Bld) 10.2 % 0-10 [facility] Blood platelet mean volumeOr dered By: Renard Burgos on 05-09-2022 Platelet mean volume (Bld) [Entitic vol] 11.5 fL 6.2-12.0 [facility] Determination of erythrocyte mean corpuscular volume (MCV)Ordered By: Renard Burgos on 05-09-2022 MCV (RBC) [Entitic vol] 91.0 fL 80-94 [facility] Hematocrit Auto (Bld) [Volum e fraction]Ordered By: Renard Burgos on 05-09-2022 Hematocrit (Bld) [Volume fraction] 42.5 % 40-54 [facility] Laboratory - Hematology and Cell countsOrdered By: Renard Burgos on 05-09-2022 Erythrocyte distribution width (RBC) [Entitic vol] 41.4 fL 35.1-43.9 [facility] Erythrocyte distribution width (RBC) [Ratio] 12.7 % 11.6-14.6 [facility] Immature granulocytes/100 WBC (Bld) 0.300 % 0.0-0.9 [facility] Comment on above: IG% - Immature Granu locytes (promyelocytes, myelocytes and metamyelocytes) > 1% indicates that a LEFT SHIFT is Present. MCH (RBC) [Entitic mass] 30.2 pg 27.0-32.0 [facility] Nucleated RBC/100 WBC (Bld) [Ratio] 0.4 % 0-5 [facility] MCHC Auto (RBC) [Mass/Vol]Or dered By: Renard Burgos on 05-09-2022 MCHC (RBC) [Mass/Vol] 33.2 g/dL 32-36 [facility] Platelets bldOrdered By: Lyubov Burgos on 05-09-2022 Platelets (Bld) [#/Vol] 202 10*3/uL 150-450 [facility] Absolute lymphocyte countOrd ered By: Renard Burgos on 05-03-2022 Lymphocytes Auto (Unsp spec) [#/Vol] 1.86 10*3/uL 0.83-4.51 [facility] Basophil percentageOrdered B y: Renard Burgos on 05-03-2022 Basophils/100 WBC (Bld) 0.3 % 0-1 [facility] Eosinophils/100 WBC (Bld) 0.3 % 0-5 [facility] Neutrophils (Bld) [#/Vol] 6.4 10*3/uL 2.0-7.7 [facility] Neutrophils/100 WBC (Bld) 71.9 % 47-70 [facility] WBC (Bld) [#/Vol] 8.9 10*3/uL 4.4-11.0 [facility] Blood erythrocytes count (nu mber/volume)Ordered By: Renard Burgos on 05-03-2022 RBC (Bld) [#/Vol] 4.65 10*6/uL 4.6-6.2 [facility] Blood hemoglobin measurement (mass/volume)Ordered By: Renard Burgos on 05-03-2022 Hemoglobin (Bld) [Mass/Vol] 14.5 g/dL 13.0-16.5 [facility] Blood lymphocytes/100 leukoc ytesOrdered By: Renard Burgos on 05-03-2022 Lymphocytes/100 WBC (Bld) 20.9 % 19-41 [facility] Blood monocytes/100 leukocyt esOrdered By: Renard Burgos on 05-03-2022 Monocytes/100 WBC (Bld) 6.2 % 0-10 [facility] Blood platelet mean volumeOr dered By: Renard Burgos on 05-03-2022 Platelet mean volume (Bld) [Entitic vol] 11.1 fL 6.2-12.0 [facility] Determination of erythrocyte mean corpuscular volume (MCV)Ordered By: Renard Burgos on 05-03-2022 MCV (RBC) [Entitic vol] 90.1 fL 80-94 [facility] Hematocrit Auto (Bld) [Volum e fraction]Ordered By: Renard Burgos on 05-03-2022 Hematocrit (Bld) [Volume fraction] 41.9 % 40-54 [facility] Laboratory - Hematology and Cell countsOrdered By: Renard Burgos on 05-03-2022 Erythrocyte distribution width (RBC) [Entitic vol] 39.7 fL 35.1-43.9 [facility] Erythrocyte distribution width (RBC) [Ratio] 12.2 % 11.6-14.6 [facility] Immature granulocytes/100 WBC (Bld) 0.400 % 0.0-0.9 [facility] Comment on above: IG% - Immature Granu locytes (promyelocytes, myelocytes and metamyelocytes) > 1% indicates that a LEFT SHIFT is Present. MCH (RBC) [Entitic mass] 31.2 pg 27.0-32.0 [facility] Nucleated RBC/100 WBC (Bld) [Ratio] 0 % 0-5 [facility] MCHC Auto (RBC) [Mass/Vol]Or dered By: Renard Burgos on 05-03-2022 MCHC (RBC) [Mass/Vol] 34.6 g/dL 32-36 [facility] Platelets bldOrdered By: Lyubov Burgos on 05-03-2022 Platelets (Bld) [#/Vol] 203 10*3/uL 150-450 [facility] Absolute lymphocyte countOrd ered By: Renard Burgos on 04-26-2022 Lymphocytes Auto (Unsp spec) [#/Vol] 2.79 10*3/uL 0.83-4.51 [facility] Basophil percentageOrdered B y: Renard Burgos on 04-26-2022 Basophils/100 WBC (Bld) 0.4 % 0-1 [facility] Eosinophils/100 WBC (Bld) 0.4 % 0-5 [facility] Neutrophils (Bld) [#/Vol] 5.9 10*3/uL 2.0-7.7 [facility] Neutrophils/100 WBC (Bld) 60.9 % 47-70 [facility] WBC (Bld) [#/Vol] 9.7 10*3/uL 4.4-11.0 [facility] Blood erythrocytes count (nu mber/volume)Ordered By: Renard Burgos on 04-26-2022 RBC (Bld) [#/Vol] 4.92 10*6/uL 4.6-6.2 [facility] Blood hemoglobin measurement (mass/volume)Ordered By: Renard Burgos on 04-26-2022 Hemoglobin (Bld) [Mass/Vol] 15.2 g/dL 13.0-16.5 [facility] Blood lymphocytes/100 leukoc ytesOrdered By: Renard Burgos on 04-26-2022 Lymphocytes/100 WBC (Bld) 28.9 % 19-41 [facility] Blood monocytes/100 leukocyt esOrdered By: Renard Burgos on 04-26-2022 Monocytes/100 WBC (Bld) 9.0 % 0-10 [facility] Blood platelet mean volumeOr dered By: Renard Burgos on 04-26-2022 Platelet mean volume (Bld) [Entitic vol] 11.0 fL 6.2-12.0 [facility] Determination of erythrocyte mean corpuscular volume (MCV)Ordered By: Renard Burgos on 04-26-2022 MCV (RBC) [Entitic vol] 92.3 fL 80-94 [facility] Hematocrit Auto (Bld) [Volum e fraction]Ordered By: Renard Burgos on 04-26-2022 Hematocrit (Bld) [Volume fraction] 45.4 % 40-54 [facility] Laboratory - Hematology and Cell countsOrdered By: Renard Burgos on 04-26-2022 Erythrocyte distribution width (RBC) [Entitic vol] 42.1 fL 35.1-43.9 [facility] Erythrocyte distribution width (RBC) [Ratio] 12.5 % 11.6-14.6 [facility] Immature granulocytes/100 WBC (Bld) 0.400 % 0.0-0.9 [facility] Comment on above: IG% - Immature Granu locytes (promyelocytes, myelocytes and metamyelocytes) > 1% indicates that a LEFT SHIFT is Present. MCH (RBC) [Entitic mass] 30.9 pg 27.0-32.0 [facility] Nucleated RBC/100 WBC (Bld) [Ratio] 0 % 0-5 [facility] MCHC Auto (RBC) [Mass/Vol]Or dered By: Renard Burgos on 04-26-2022 MCHC (RBC) [Mass/Vol] 33.5 g/dL 32-36 [facility] Platelets bldOrdered By: Lyubov Burgos on 04-26-2022 Platelets (Bld) [#/Vol] 178 10*3/uL 150-450 [facility] Absolute lymphocyte countOrd ered By: Renard Burgos on 04-18-2022 Lymphocytes Auto (Unsp spec) [#/Vol] 2.03 10*3/uL 0.83-4.51 [facility] Basophil percentageOrdered B y: Renard Burgos on 04-18-2022 Basophils/100 WBC (Bld) 0.6 % 0-1 [facility] Eosinophils/100 WBC (Bld) 0.6 % 0-5 [facility] Neutrophils (Bld) [#/Vol] 4.5 10*3/uL 2.0-7.7 [facility] Neutrophils/100 WBC (Bld) 62.0 % 47-70 [facility] WBC (Bld) [#/Vol] 7.2 10*3/uL 4.4-11.0 [facility] Blood erythrocytes count (nu mber/volume)Ordered By: Renard Burgos on 04-18-2022 RBC (Bld) [#/Vol] 4.67 10*6/uL 4.6-6.2 [facility] Blood hemoglobin measurement (mass/volume)Ordered By: Renard Burgos on 04-18-2022 Hemoglobin (Bld) [Mass/Vol] 14.5 g/dL 13.0-16.5 [facility] Blood lymphocytes/100 leukoc ytesOrdered By: Renard Burgos on 04-18-2022 Lymphocytes/100 WBC (Bld) 28.2 % 19-41 [facility] Blood monocytes/100 leukocyt esOrdered By: Renard Burgos on 04-18-2022 Monocytes/100 WBC (Bld) 8.2 % 0-10 [facility] Blood platelet mean volumeOr dered By: Renard Burgos on 04-18-2022 Platelet mean volume (Bld) [Entitic vol] 11.2 fL 6.2-12.0 [facility] Determination of erythrocyte mean corpuscular volume (MCV)Ordered By: Renard Burgos on 04-18-2022 MCV (RBC) [Entitic vol] 90.8 fL 80-94 [facility] Hematocrit Auto (Bld) [Volum e fraction]Ordered By: Renard Burgos on 04-18-2022 Hematocrit (Bld) [Volume fraction] 42.4 % 40-54 [facility] Laboratory - Hematology and Cell countsOrdered By: Renard Burgos on 04-18-2022 Erythrocyte distribution width (RBC) [Entitic vol] 41.1 fL 35.1-43.9 [facility] Erythrocyte distribution width (RBC) [Ratio] 12.5 % 11.6-14.6 [facility] Immature granulocytes/100 WBC (Bld) 0.400 % 0.0-0.9 [facility] Comment on above: IG% - Immature Granu locytes (promyelocytes, myelocytes and metamyelocytes) > 1% indicates that a LEFT SHIFT is Present. MCH (RBC) [Entitic mass] 31.0 pg 27.0-32.0 [facility] Nucleated RBC/100 WBC (Bld) [Ratio] 0 % 0-5 [facility] MCHC Auto (RBC) [Mass/Vol]Or dered By: Renard Burgos on 04-18-2022 MCHC (RBC) [Mass/Vol] 34.2 g/dL 32-36 [facility] Platelets bldOrdered By: Lyubov Burgos on 04-18-2022 Platelets (Bld) [#/Vol] 196 10*3/uL 150-450 [facility] Basophil percentageOrdered B y: Renard Burgos on 04-14-2022 Bilirubin [Mass/Vol] 0.40 mg/dL 0.20-1.00 [facility] Comment on above: For patients on eltr ombopag therapy, use of Dimension Bozman TBIL is not recommended. Protein [Mass/Vol] 6.3 g/dL 6.4-8.2 [facility] Direct bilirubinOrdered By: Renard Burgos on 04-14-2022 Bilirubin.direct [Mass/Vol] 0.12 mg/dL 0.00-0.30 [facility] Laboratory - Chemistry and C hemistry - challengeOrdered By: Renard Burgos on 04-14-2022 ALP [Catalytic activity/Vol] 117 U/L 45-117 [facility] ALT [Catalytic activity/Vol] 26 U/L 16-61 [facility] Globulin (S) [Mass/Vol] 3.2 g/dL 2.2-4.2 [facility] Serum or plasma albumin gordy urement (mass/volume)Ordered By: Renard Burgos on 04-14-2022 Albumin [Mass/Vol] 3.1 g/dL 3.2-5.0 [facility] Thin prep Papanicolaou smear with manual screeningOrdered By: Renard Burgos on 04-14-2022 Thin prep Papanicolaou smear with manual screening 12 U/L 15-37 [facility] Absolute lymphocyte countOrd ered By: Renard Burgos on 04-11-2022 Lymphocytes Auto (Unsp spec) [#/Vol] 2.16 10*3/uL 0.83-4.51 [facility] Basophil percentageOrdered B y: Renard Burgos on 04-11-2022 Basophils/100 WBC (Bld) 0.4 % 0-1 [facility] Eosinophils/100 WBC (Bld) 0.4 % 0-5 [facility] Neutrophils (Bld) [#/Vol] 4.2 10*3/uL 2.0-7.7 [facility] Neutrophils/100 WBC (Bld) 61.1 % 47-70 [facility] WBC (Bld) [#/Vol] 6.9 10*3/uL 4.4-11.0 [facility] Blood erythrocytes count (nu mber/volume)Ordered By: Renard Burgos on 04-11-2022 RBC (Bld) [#/Vol] 4.58 10*6/uL 4.6-6.2 [facility] Blood hemoglobin measurement (mass/volume)Ordered By: Renard Burgos on 04-11-2022 Hemoglobin (Bld) [Mass/Vol] 13.9 g/dL 13.0-16.5 [facility] Blood lymphocytes/100 leukoc ytesOrdered By: Renard Burgos on 04-11-2022 Lymphocytes/100 WBC (Bld) 31.2 % 19-41 [facility] Blood monocytes/100 leukocyt esOrdered By: Renard Burgos on 04-11-2022 Monocytes/100 WBC (Bld) 6.5 % 0-10 [facility] Blood platelet mean volumeOr dered By: Renard Burgos on 04-11-2022 Platelet mean volume (Bld) [Entitic vol] 11.4 fL 6.2-12.0 [facility] Determination of erythrocyte mean corpuscular volume (MCV)Ordered By: Renard Burgos on 04-11-2022 MCV (RBC) [Entitic vol] 91.9 fL 80-94 [facility] Hematocrit Auto (Bld) [Volum e fraction]Ordered By: Renard Burgos on 04-11-2022 Hematocrit (Bld) [Volume fraction] 42.1 % 40-54 [facility] Laboratory - Hematology and Cell countsOrdered By: Renard Burgos on 04-11-2022 Erythrocyte distribution width (RBC) [Entitic vol] 41.5 fL 35.1-43.9 [facility] Erythrocyte distribution width (RBC) [Ratio] 12.3 % 11.6-14.6 [facility] Immature granulocytes/100 WBC (Bld) 0.400 % 0.0-0.9 [facility] Comment on above: IG% - Immature Granu locytes (promyelocytes, myelocytes and metamyelocytes) > 1% indicates that a LEFT SHIFT is Present. MCH (RBC) [Entitic mass] 30.3 pg 27.0-32.0 [facility] Nucleated RBC/100 WBC (Bld) [Ratio] 0 % 0-5 [facility] MCHC Auto (RBC) [Mass/Vol]Or dered By: Renard Burgos on 04-11-2022 MCHC (RBC) [Mass/Vol] 33.0 g/dL 32-36 [facility] Platelets bldOrdered By: Lyubov Burgos on 04-11-2022 Platelets (Bld) [#/Vol] 191 10*3/uL 150-450 [facility] Absolute lymphocyte countOrd ered By: Renard Burgos on 04-04-2022 Lymphocytes Auto (Unsp spec) [#/Vol] 1.99 10*3/uL 0.83-4.51 [facility] Basophil percentageOrdered B y: Renard Burgos on 04-04-2022 Basophils/100 WBC (Bld) 0.4 % 0-1 [facility] Cholesterol [Mass/Vol] 158 mg/dL <200 [facility] Comment on above: <200 mg/dL Desirable 200-240 mg/dL Borderline >240 mg/dL High Risk Eosinophils/100 WBC (Bld) 0.4 % 0-5 [facility] Neutrophils (Bld) [#/Vol] 4.9 10*3/uL 2.0-7.7 [facility] Neutrophils/100 WBC (Bld) 64.2 % 47-70 [facility] Triglyceride [Mass/Vol] 259 mg/dL <199 [facility] Comment on above: The drugs N-Acetylcy steine and Metamizole may falsely depress this assay.Serum Triglycerides Reference Interval Normal <150 mg/dL Borderline high 150 - 199 mg/dL High 200 - 499 mg/dL Very High > or = 500 mg/dL WBC (Bld) [#/Vol] 7.7 10*3/uL 4.4-11.0 [facility] Blood erythrocytes count (nu mber/volume)Ordered By: Renard Burgos on 04-04-2022 RBC (Bld) [#/Vol] 4.63 10*6/uL 4.6-6.2 [facility] Blood hemoglobin measurement (mass/volume)Ordered By: Renard Burgos on 04-04-2022 Hemoglobin (Bld) [Mass/Vol] 14.1 g/dL 13.0-16.5 [facility] Blood lymphocytes/100 leukoc ytesOrdered By: Renard Burgos on 04-04-2022 Lymphocytes/100 WBC (Bld) 25.9 % 19-41 [facility] Blood monocytes/100 leukocyt esOrdered By: Renard Burgos on 04-04-2022 Monocytes/100 WBC (Bld) 8.6 % 0-10 [facility] Blood platelet mean volumeOr dered By: Renard Burgos on 04-04-2022 Platelet mean volume (Bld) [Entitic vol] 11.3 fL 6.2-12.0 [facility] Determination of erythrocyte mean corpuscular volume (MCV)Ordered By: Renard Burgos on 04-04-2022 MCV (RBC) [Entitic vol] 90.7 fL 80-94 [facility] Hematocrit Auto (Bld) [Volum e fraction]Ordered By: Renard Burgos on 04-04-2022 Hematocrit (Bld) [Volume fraction] 42.0 % 40-54 [facility] Laboratory - Hematology and Cell countsOrdered By: Renard Burgos on 04-04-2022 Erythrocyte distribution width (RBC) [Entitic vol] 41.3 fL 35.1-43.9 [facility] Erythrocyte distribution width (RBC) [Ratio] 12.4 % 11.6-14.6 [facility] Immature granulocytes/100 WBC (Bld) 0.500 % 0.0-0.9 [facility] Comment on above: IG% - Immature Granu locytes (promyelocytes, myelocytes and metamyelocytes) > 1% indicates that a LEFT SHIFT is Present. MCH (RBC) [Entitic mass] 30.5 pg 27.0-32.0 [facility] Nucleated RBC/100 WBC (Bld) [Ratio] 0 % 0-5 [facility] MCHC Auto (RBC) [Mass/Vol]Or dered By: Renard Burgos on 04-04-2022 MCHC (RBC) [Mass/Vol] 33.6 g/dL 32-36 [facility] Platelets bldOrdered By: Lyubov Burgos on 04-04-2022 Platelets (Bld) [#/Vol] 174 10*3/uL 150-450 [facility] Serum or plasma cholesterol in HDL measurement (mass/volume)Ordered By: Renard Burgos on 04-04-2022 Cholesterol in HDL [Mass/Vol] 26 mg/dL >40 [facility] Comment on above: The drugs N-Acetylcy steine and Metamizole may falsely depress this assay. Reference Range HDL <40 mg/dL Low HDL Cholesterol HDL >or= 60 mg/dL High HDL Cholesterol Serum or plasma cholesterol in VLDL measurement (mass/volume)Ordered By: Renard Burgos on 04-04-2022 Cholesterol in VLDL [Mass/Vol] 52 mg/dL 5-40 [facility] Serum or plasma low density lipoprotein (LDL) cholesterol measurement (mass/volume)Ordered By: Renard Burgos on 04-04-2022 Cholesterol in LDL [Mass/Vol] 80 mg/dL 0-130 [facility] Absolute lymphocyte countOrd ered By: Renard Burgos on 03-28-2022 Lymphocytes Auto (Unsp spec) [#/Vol] 2.25 10*3/uL 0.83-4.51 [facility] Basophil percentageOrdered B y: Renard Burgos on 03-28-2022 Basophils/100 WBC (Bld) 0.6 % 0-1 [facility] Eosinophils/100 WBC (Bld) 0.5 % 0-5 [facility] Neutrophils (Bld) [#/Vol] 4.8 10*3/uL 2.0-7.7 [facility] Neutrophils/100 WBC (Bld) 60.5 % 47-70 [facility] WBC (Bld) [#/Vol] 8.0 10*3/uL 4.4-11.0 [facility] Blood erythrocytes count (nu mber/volume)Ordered By: Reanrd Burgos on 03-28-2022 RBC (Bld) [#/Vol] 4.69 10*6/uL 4.6-6.2 [facility] Blood hemoglobin measurement (mass/volume)Ordered By: Renard Burgos on 03-28-2022 Hemoglobin (Bld) [Mass/Vol] 14.4 g/dL 13.0-16.5 [facility] Blood lymphocytes/100 leukoc ytesOrdered By: Renard Burgos on 03-28-2022 Lymphocytes/100 WBC (Bld) 28.1 % 19-41 [facility] Blood monocytes/100 leukocyt esOrdered By: Renard Burgos on 03-28-2022 Monocytes/100 WBC (Bld) 9.8 % 0-10 [facility] Blood platelet mean volumeOr dered By: Renard Burgos on 03-28-2022 Platelet mean volume (Bld) [Entitic vol] 10.8 fL 6.2-12.0 [facility] Determination of erythrocyte mean corpuscular volume (MCV)Ordered By: Renard Burgos on 03-28-2022 MCV (RBC) [Entitic vol] 92.1 fL 80-94 [facility] Hematocrit Auto (Bld) [Volum e fraction]Ordered By: Renard Burgos on 03-28-2022 Hematocrit (Bld) [Volume fraction] 43.2 % 40-54 [facility] Laboratory - Hematology and Cell countsOrdered By: Renard Burgos on 03-28-2022 Erythrocyte distribution width (RBC) [Entitic vol] 42.0 fL 35.1-43.9 [facility] Erythrocyte distribution width (RBC) [Ratio] 12.5 % 11.6-14.6 [facility] Immature granulocytes/100 WBC (Bld) 0.500 % 0.0-0.9 [facility] Comment on above: IG% - Immature Granu locytes (promyelocytes, myelocytes and metamyelocytes) > 1% indicates that a LEFT SHIFT is Present. MCH (RBC) [Entitic mass] 30.7 pg 27.0-32.0 [facility] Nucleated RBC/100 WBC (Bld) [Ratio] 0 % 0-5 [facility] MCHC Auto (RBC) [Mass/Vol]Or dered By: Renard Burgos on 03-28-2022 MCHC (RBC) [Mass/Vol] 33.3 g/dL 32-36 [facility] Platelets bldOrdered By: Lyubov Burgos on 03-28-2022 Platelets (Bld) [#/Vol] 207 10*3/uL 150-450 [facility] Absolute lymphocyte countOrd ered By: Renard uBrgos on 03-21-2022 Lymphocytes Auto (Unsp spec) [#/Vol] 1.98 10*3/uL 0.83-4.51 [facility] Basophil percentageOrdered B y: Renard Burgos on 03-21-2022 Basophils/100 WBC (Bld) 0.5 % 0-1 [facility] Eosinophils/100 WBC (Bld) 0.5 % 0-5 [facility] Neutrophils (Bld) [#/Vol] 4.9 10*3/uL 2.0-7.7 [facility] Neutrophils/100 WBC (Bld) 63.6 % 47-70 [facility] WBC (Bld) [#/Vol] 7.7 10*3/uL 4.4-11.0 [facility] Blood erythrocytes count (nu mber/volume)Ordered By: Renard Burgso on 03-21-2022 RBC (Bld) [#/Vol] 4.82 10*6/uL 4.6-6.2 [facility] Blood hemoglobin measurement (mass/volume)Ordered By: Renard Burgos on 03-21-2022 Hemoglobin (Bld) [Mass/Vol] 14.9 g/dL 13.0-16.5 [facility] Blood lymphocytes/100 leukoc ytesOrdered By: Renard Burgos on 03-21-2022 Lymphocytes/100 WBC (Bld) 25.7 % 19-41 [facility] Blood monocytes/100 leukocyt esOrdered By: Renard Burgos on 03-21-2022 Monocytes/100 WBC (Bld) 9.3 % 0-10 [facility] Blood platelet mean volumeOr dered By: Renard Burgos on 03-21-2022 Platelet mean volume (Bld) [Entitic vol] 10.8 fL 6.2-12.0 [facility] Determination of erythrocyte mean corpuscular volume (MCV)Ordered By: Renard Burgos on 03-21-2022 MCV (RBC) [Entitic vol] 90.7 fL 80-94 [facility] Hematocrit Auto (Bld) [Volum e fraction]Ordered By: Renard Burgos on 03-21-2022 Hematocrit (Bld) [Volume fraction] 43.7 % 40-54 [facility] Laboratory - Hematology and Cell countsOrdered By: Renard Burgos on 03-21-2022 Erythrocyte distribution width (RBC) [Entitic vol] 40.8 fL 35.1-43.9 [facility] Erythrocyte distribution width (RBC) [Ratio] 12.4 % 11.6-14.6 [facility] Immature granulocytes/100 WBC (Bld) 0.400 % 0.0-0.9 [facility] Comment on above: IG% - Immature Granu locytes (promyelocytes, myelocytes and metamyelocytes) > 1% indicates that a LEFT SHIFT is Present. MCH (RBC) [Entitic mass] 30.9 pg 27.0-32.0 [facility] Nucleated RBC/100 WBC (Bld) [Ratio] 0 % 0-5 [facility] MCHC Auto (RBC) [Mass/Vol]Or dered By: Renard Burgos on 03-21-2022 MCHC (RBC) [Mass/Vol] 34.1 g/dL 32-36 [facility] Platelets bldOrdered By: Lyubov Burgos on 03-21-2022 Platelets (Bld) [#/Vol] 186 10*3/uL 150-450 [facility] Absolute lymphocyte countOrd ered By: Renard Burgos on 03-14-2022 Lymphocytes Auto (Unsp spec) [#/Vol] 2.18 10*3/uL 0.83-4.51 [facility] Basophil percentageOrdered B y: Renard Burgos on 03-14-2022 Basophils/100 WBC (Bld) 0.4 % 0-1 [facility] Eosinophils/100 WBC (Bld) 0.6 % 0-5 [facility] Neutrophils (Bld) [#/Vol] 4.3 10*3/uL 2.0-7.7 [facility] Neutrophils/100 WBC (Bld) 58.8 % 47-70 [facility] WBC (Bld) [#/Vol] 7.3 10*3/uL 4.4-11.0 [facility] Blood erythrocytes count (nu mber/volume)Ordered By: Renard Burgos on 03-14-2022 RBC (Bld) [#/Vol] 4.80 10*6/uL 4.6-6.2 [facility] Blood hemoglobin measurement (mass/volume)Ordered By: Renard Burgos on 03-14-2022 Hemoglobin (Bld) [Mass/Vol] 14.5 g/dL 13.0-16.5 [facility] Blood lymphocytes/100 leukoc ytesOrdered By: Renard Burgos on 03-14-2022 Lymphocytes/100 WBC (Bld) 30.1 % 19-41 [facility] Blood monocytes/100 leukocyt esOrdered By: Renard Burgos on 03-14-2022 Monocytes/100 WBC (Bld) 9.5 % 0-10 [facility] Blood platelet mean volumeOr dered By: Renard Burgos on 03-14-2022 Platelet mean volume (Bld) [Entitic vol] 11.0 fL 6.2-12.0 [facility] Determination of erythrocyte mean corpuscular volume (MCV)Ordered By: Renard Burgos on 03-14-2022 MCV (RBC) [Entitic vol] 91.5 fL 80-94 [facility] Hematocrit Auto (Bld) [Volum e fraction]Ordered By: Renard Burgos on 03-14-2022 Hematocrit (Bld) [Volume fraction] 43.9 % 40-54 [facility] Laboratory - Hematology and Cell countsOrdered By: Renard Burgos on 03-14-2022 Erythrocyte distribution width (RBC) [Entitic vol] 41.1 fL 35.1-43.9 [facility] Erythrocyte distribution width (RBC) [Ratio] 12.4 % 11.6-14.6 [facility] Immature granulocytes/100 WBC (Bld) 0.600 % 0.0-0.9 [facility] Comment on above: IG% - Immature Granu locytes (promyelocytes, myelocytes and metamyelocytes) > 1% indicates that a LEFT SHIFT is Present. MCH (RBC) [Entitic mass] 30.2 pg 27.0-32.0 [facility] Nucleated RBC/100 WBC (Bld) [Ratio] 0 % 0-5 [facility] MCHC Auto (RBC) [Mass/Vol]Or dered By: Renard Burgos on 03-14-2022 MCHC (RBC) [Mass/Vol] 33.0 g/dL 32-36 [facility] Platelets bldOrdered By: [facility] Loretta on 03-14-2022 Platelets (Bld) [#/Vol] 201 10*3/uL 150-450 [facility] Absolute lymphocyte countOrd ered By: Renard Burgos on 2022 Lymphocytes Auto (Unsp spec) [#/Vol] 1.97 10*3/uL 0.83-4.51 [facility] Basophil percentageOrdered B y: Renard Burgos on 2022 Basophils/100 WBC (Bld) 0.6 % 0-1 [facility] Eosinophils/100 WBC (Bld) 0.4 % 0-5 [facility] Neutrophils (Bld) [#/Vol] 4.3 10*3/uL 2.0-7.7 [facility] Neutrophils/100 WBC (Bld) 61.3 % 47-70 [facility] WBC (Bld) [#/Vol] 7.0 10*3/uL 4.4-11.0 [facility] Blood erythrocytes count (nu mber/volume)Ordered By: Renard Burgos on 2022 RBC (Bld) [#/Vol] 4.78 10*6/uL 4.6-6.2 [facility] Blood hemoglobin measurement (mass/volume)Ordered By: Renard Burgos on 2022 Hemoglobin (Bld) [Mass/Vol] 14.4 g/dL 13.0-16.5 [facility] Blood lymphocytes/100 leukoc ytesOrdered By: Renard Burgos on 2022 Lymphocytes/100 WBC (Bld) 28.3 % 19-41 [facility] Blood monocytes/100 leukocyt esOrdered By: Renard Burgos on 2022 Monocytes/100 WBC (Bld) 9.1 % 0-10 [facility] Blood platelet mean volumeOr dered By: Renard Burgos on 2022 Platelet mean volume (Bld) [Entitic vol] 11.1 fL 6.2-12.0 [facility] Determination of erythrocyte mean corpuscular volume (MCV)Ordered By: Renard Burgos on 2022 MCV (RBC) [Entitic vol] 91.2 fL 80-94 [facility] Hematocrit Auto (Bld) [Volum e fraction]Ordered By: Renard Burgos on 2022 Hematocrit (Bld) [Volume fraction] 43.6 % 40-54 [facility] Laboratory - Hematology and Cell countsOrdered By: Renard Burgos on 2022 Erythrocyte distribution width (RBC) [Entitic vol] 42.0 fL 35.1-43.9 [facility] Erythrocyte distribution width (RBC) [Ratio] 12.6 % 11.6-14.6 [facility] Immature granulocytes/100 WBC (Bld) 0.300 % 0.0-0.9 [facility] Comment on above: IG% - Immature Granu locytes (promyelocytes, myelocytes and metamyelocytes) > 1% indicates that a LEFT SHIFT is Present. MCH (RBC) [Entitic mass] 30.1 pg 27.0-32.0 [facility] Nucleated RBC/100 WBC (Bld) [Ratio] 0 % 0-5 [facility] MCHC Auto (RBC) [Mass/Vol]Or dered By: Renard Burgos on 2022 MCHC (RBC) [Mass/Vol] 33.0 g/dL 32-36 [facility] Platelets bldOrdered By: Lyubov Burgos on 2022 Platelets (Bld) [#/Vol] 210 10*3/uL 150-450 [facility] Absolute lymphocyte countOrd ered By: Renard Burgos on 02-28-2022 Lymphocytes Auto (Unsp spec) [#/Vol] 1.85 10*3/uL 0.83-4.51 [facility] Basophil percentageOrdered B y: Renard Burgos on 02-28-2022 Basophils/100 WBC (Bld) 0.4 % 0-1 [facility] Eosinophils/100 WBC (Bld) 0.4 % 0-5 [facility] Neutrophils (Bld) [#/Vol] 5.3 10*3/uL 2.0-7.7 [facility] Neutrophils/100 WBC (Bld) 67.8 % 47-70 [facility] WBC (Bld) [#/Vol] 7.8 10*3/uL 4.4-11.0 [facility] Blood erythrocytes count (nu mber/volume)Ordered By: Renard Burgos on 02-28-2022 RBC (Bld) [#/Vol] 4.58 10*6/uL 4.6-6.2 [facility] Blood hemoglobin measurement (mass/volume)Ordered By: Renard Burgos on 02-28-2022 Hemoglobin (Bld) [Mass/Vol] 14.3 g/dL 13.0-16.5 [facility] Blood lymphocytes/100 leukoc ytesOrdered By: Renard Burgos on 02-28-2022 Lymphocytes/100 WBC (Bld) 23.8 % 19-41 [facility] Blood monocytes/100 leukocyt esOrdered By: Renard Burgos on 02-28-2022 Monocytes/100 WBC (Bld) 7.2 % 0-10 [facility] Blood platelet mean volumeOr dered By: Renard Burgos on 02-28-2022 Platelet mean volume (Bld) [Entitic vol] 10.8 fL 6.2-12.0 [facility] Determination of erythrocyte mean corpuscular volume (MCV)Ordered By: Renard Burgos on 02-28-2022 MCV (RBC) [Entitic vol] 91.5 fL 80-94 [facility] Hematocrit Auto (Bld) [Volum e fraction]Ordered By: Renard Burgos on 02-28-2022 Hematocrit (Bld) [Volume fraction] 41.9 % 40-54 [facility] Laboratory - Hematology and Cell countsOrdered By: Renard Burgos on 02-28-2022 Erythrocyte distribution width (RBC) [Entitic vol] 42.2 fL 35.1-43.9 [facility] Erythrocyte distribution width (RBC) [Ratio] 12.7 % 11.6-14.6 [facility] Immature granulocytes/100 WBC (Bld) 0.400 % 0.0-0.9 [facility] Comment on above: IG% - Immature Granu locytes (promyelocytes, myelocytes and metamyelocytes) > 1% indicates that a LEFT SHIFT is Present. MCH (RBC) [Entitic mass] 31.2 pg 27.0-32.0 [facility] Nucleated RBC/100 WBC (Bld) [Ratio] 0 % 0-5 [facility] MCHC Auto (RBC) [Mass/Vol]Or dered By: Renard Burgos on 02-28-2022 MCHC (RBC) [Mass/Vol] 34.1 g/dL 32-36 [facility] Platelets bldOrdered By: Lyubov Burgos on 02-28-2022 Platelets (Bld) [#/Vol] 202 10*3/uL 150-450 [facility] Absolute lymphocyte countOrd ered By: Renard Burgos on 02-21-2022 Lymphocytes Auto (Unsp spec) [#/Vol] 1.93 10*3/uL 0.83-4.51 [facility] Basophil percentageOrdered B y: Renard Burgos on 02-21-2022 Basophils/100 WBC (Bld) 0.4 % 0-1 [facility] Eosinophils/100 WBC (Bld) 0.4 % 0-5 [facility] Neutrophils (Bld) [#/Vol] 4.6 10*3/uL 2.0-7.7 [facility] Neutrophils/100 WBC (Bld) 63.4 % 47-70 [facility] WBC (Bld) [#/Vol] 7.2 10*3/uL 4.4-11.0 [facility] Blood erythrocytes count (nu mber/volume)Ordered By: Renard Burgos on 02-21-2022 RBC (Bld) [#/Vol] 4.54 10*6/uL 4.6-6.2 [facility] Blood hemoglobin measurement (mass/volume)Ordered By: Renard Burgos on 02-21-2022 Hemoglobin (Bld) [Mass/Vol] 14.1 g/dL 13.0-16.5 [facility] Blood lymphocytes/100 leukoc ytesOrdered By: Renard Burgos on 02-21-2022 Lymphocytes/100 WBC (Bld) 26.7 % 19-41 [facility] Blood monocytes/100 leukocyt esOrdered By: Reanrd Burgos on 02-21-2022 Monocytes/100 WBC (Bld) 8.8 % 0-10 [facility] Blood platelet mean volumeOr dered By: Renard Burgos on 02-21-2022 Platelet mean volume (Bld) [Entitic vol] 11.1 fL 6.2-12.0 [facility] Determination of erythrocyte mean corpuscular volume (MCV)Ordered By: Renard Burgos on 02-21-2022 MCV (RBC) [Entitic vol] 91.4 fL 80-94 [facility] Hematocrit Auto (Bld) [Volum e fraction]Ordered By: Renard Burgos on 02-21-2022 Hematocrit (Bld) [Volume fraction] 41.5 % 40-54 [facility] Laboratory - Hematology and Cell countsOrdered By: Renard Burgos on 02-21-2022 Erythrocyte distribution width (RBC) [Entitic vol] 41.9 fL 35.1-43.9 [facility] Erythrocyte distribution width (RBC) [Ratio] 12.6 % 11.6-14.6 [facility] Immature granulocytes/100 WBC (Bld) 0.300 % 0.0-0.9 [facility] Comment on above: IG% - Immature Granu locytes (promyelocytes, myelocytes and metamyelocytes) > 1% indicates that a LEFT SHIFT is Present. MCH (RBC) [Entitic mass] 31.1 pg 27.0-32.0 [facility] Nucleated RBC/100 WBC (Bld) [Ratio] 0 % 0-5 [facility] MCHC Auto (RBC) [Mass/Vol]Or dered By: Renard Burgos on 02-21-2022 MCHC (RBC) [Mass/Vol] 34.0 g/dL 32-36 [facility] Platelets bldOrdered By: Pet lizy Burgos on 02-21-2022 Platelets (Bld) [#/Vol] 189 10*3/uL 150-450 [facility] Absolute lymphocyte countOrd ered By: Renard Burgos on 02-14-2022 Lymphocytes Auto (Unsp spec) [#/Vol] 2.00 10*3/uL 0.83-4.51 [facility] Basophil percentageOrdered B y: Renard Burgos on 02-14-2022 Basophils/100 WBC (Bld) 0.6 % 0-1 [facility] Eosinophils/100 WBC (Bld) 0.3 % 0-5 [facility] Neutrophils (Bld) [#/Vol] 6.4 10*3/uL 2.0-7.7 [facility] Neutrophils/100 WBC (Bld) 69.5 % 47-70 [facility] WBC (Bld) [#/Vol] 9.3 10*3/uL 4.4-11.0 [facility] Blood erythrocytes count (nu mber/volume)Ordered By: Renard Burgos on 02-14-2022 RBC (Bld) [#/Vol] 4.65 10*6/uL 4.6-6.2 [facility] Blood hemoglobin measurement (mass/volume)Ordered By: Renard Burgos on 02-14-2022 Hemoglobin (Bld) [Mass/Vol] 14.6 g/dL 13.0-16.5 [facility] Blood lymphocytes/100 leukoc ytesOrdered By: Renard Burgos on 02-14-2022 Lymphocytes/100 WBC (Bld) 21.6 % 19-41 [facility] Blood monocytes/100 leukocyt esOrdered By: Renard Burgos on 02-14-2022 Monocytes/100 WBC (Bld) 7.6 % 0-10 [facility] Blood platelet mean volumeOr dered By: Renard Burgos on 02-14-2022 Platelet mean volume (Bld) [Entitic vol] 11.1 fL 6.2-12.0 [facility] Determination of erythrocyte mean corpuscular volume (MCV)Ordered By: Renard Burgos on 02-14-2022 MCV (RBC) [Entitic vol] 91.8 fL 80-94 [facility] Hematocrit Auto (Bld) [Volum e fraction]Ordered By: Renard Burgos on 02-14-2022 Hematocrit (Bld) [Volume fraction] 42.7 % 40-54 [facility] Laboratory - Hematology and Cell countsOrdered By: Renard Burgos on 02-14-2022 Erythrocyte distribution width (RBC) [Entitic vol] 43.7 fL 35.1-43.9 [facility] Erythrocyte distribution width (RBC) [Ratio] 13.0 % 11.6-14.6 [facility] Immature granulocytes/100 WBC (Bld) 0.400 % 0.0-0.9 [facility] Comment on above: IG% - Immature Granu locytes (promyelocytes, myelocytes and metamyelocytes) > 1% indicates that a LEFT SHIFT is Present. MCH (RBC) [Entitic mass] 31.4 pg 27.0-32.0 [facility] Nucleated RBC/100 WBC (Bld) [Ratio] 0 % 0-5 [facility] MCHC Auto (RBC) [Mass/Vol]Or dered By: Renard Burgos on 02-14-2022 MCHC (RBC) [Mass/Vol] 34.2 g/dL 32-36 [facility] Platelets bldOrdered By: Lyubov Burgos on 02-14-2022 Platelets (Bld) [#/Vol] 187 10*3/uL 150-450 [facility] Absolute lymphocyte countOrd ered By: Renard Burgos on 02-07-2022 Lymphocytes Auto (Unsp spec) [#/Vol] 1.97 10*3/uL 0.83-4.51 [facility] Basophil percentageOrdered B y: Renard Burgos on 02-07-2022 Basophils/100 WBC (Bld) 0.4 % 0-1 [facility] Eosinophils/100 WBC (Bld) 0.3 % 0-5 [facility] Neutrophils (Bld) [#/Vol] 4.2 10*3/uL 2.0-7.7 [facility] Neutrophils/100 WBC (Bld) 61.8 % 47-70 [facility] WBC (Bld) [#/Vol] 6.8 10*3/uL 4.4-11.0 [facility] Blood erythrocytes count (nu mber/volume)Ordered By: Renard Burgos on 02-07-2022 RBC (Bld) [#/Vol] 4.86 10*6/uL 4.6-6.2 [facility] Blood hemoglobin measurement (mass/volume)Ordered By: Renard Burgos on 02-07-2022 Hemoglobin (Bld) [Mass/Vol] 15.4 g/dL 13.0-16.5 [facility] Blood lymphocytes/100 leukoc ytesOrdered By: Renard uBrgos on 02-07-2022 Lymphocytes/100 WBC (Bld) 29.1 % 19-41 [facility] Blood monocytes/100 leukocyt esOrdered By: Renard Burgos on 02-07-2022 Monocytes/100 WBC (Bld) 8.1 % 0-10 [facility] Blood platelet mean volumeOr dered By: Renard Burgos on 02-07-2022 Platelet mean volume (Bld) [Entitic vol] 11.0 fL 6.2-12.0 [facility] Determination of erythrocyte mean corpuscular volume (MCV)Ordered By: Renard Burgos on 02-07-2022 MCV (RBC) [Entitic vol] 92.6 fL 80-94 [facility] Hematocrit Auto (Bld) [Volum e fraction]Ordered By: Renard Burgos on 02-07-2022 Hematocrit (Bld) [Volume fraction] 45.0 % 40-54 [facility] Laboratory - Hematology and Cell countsOrdered By: Renard Burgos on 02-07-2022 Erythrocyte distribution width (RBC) [Entitic vol] 43.1 fL 35.1-43.9 [facility] Erythrocyte distribution width (RBC) [Ratio] 12.7 % 11.6-14.6 [facility] Immature granulocytes/100 WBC (Bld) 0.300 % 0.0-0.9 [facility] Comment on above: IG% - Immature Granu locytes (promyelocytes, myelocytes and metamyelocytes) > 1% indicates that a LEFT SHIFT is Present. MCH (RBC) [Entitic mass] 31.7 pg 27.0-32.0 [facility] Nucleated RBC/100 WBC (Bld) [Ratio] 0 % 0-5 [facility] MCHC Auto (RBC) [Mass/Vol]Or dered By: Renard Burgos on 02-07-2022 MCHC (RBC) [Mass/Vol] 34.2 g/dL 32-36 [facility] Platelets bldOrdered By: Lyubov lizy Loretta on 02-07-2022 Platelets (Bld) [#/Vol] 196 10*3/uL 150-450 [facility] Absolute lymphocyte countOrd ered By: Renard Burgos on 01-31-2022 Lymphocytes Auto (Unsp spec) [#/Vol] 2.19 10*3/uL 0.83-4.51 [facility] Basophil percentageOrdered B y: Renard Burgos on 01-31-2022 Basophils/100 WBC (Bld) 0.3 % 0-1 [facility] Eosinophils/100 WBC (Bld) 0.2 % 0-5 [facility] Neutrophils (Bld) [#/Vol] 5.7 10*3/uL 2.0-7.7 [facility] Neutrophils/100 WBC (Bld) 64.9 % 47-70 [facility] WBC (Bld) [#/Vol] 8.8 10*3/uL 4.4-11.0 [facility] Blood erythrocytes count (nu mber/volume)Ordered By: Renard Burgos on 01-31-2022 RBC (Bld) [#/Vol] 4.81 10*6/uL 4.6-6.2 [facility] Blood hemoglobin measurement (mass/volume)Ordered By: Renard Burgos on 01-31-2022 Hemoglobin (Bld) [Mass/Vol] 14.9 g/dL 13.0-16.5 [facility] Blood lymphocytes/100 leukoc ytesOrdered By: Renard Burgos on 01-31-2022 Lymphocytes/100 WBC (Bld) 24.9 % 19-41 [facility] Blood monocytes/100 leukocyt esOrdered By: Renard Burgos on 01-31-2022 Monocytes/100 WBC (Bld) 9.2 % 0-10 [facility] Blood platelet mean volumeOr dered By: Rneard Burgos on 01-31-2022 Platelet mean volume (Bld) [Entitic vol] 11.0 fL 6.2-12.0 [facility] Determination of erythrocyte mean corpuscular volume (MCV)Ordered By: Renard Burgos on 01-31-2022 MCV (RBC) [Entitic vol] 92.9 fL 80-94 [facility] Hematocrit Auto (Bld) [Volum e fraction]Ordered By: Renard Burgos on 01-31-2022 Hematocrit (Bld) [Volume fraction] 44.7 % 40-54 [facility] Laboratory - Hematology and Cell countsOrdered By: Renard Burgos on 01-31-2022 Erythrocyte distribution width (RBC) [Entitic vol] 42.9 fL 35.1-43.9 [facility] Erythrocyte distribution width (RBC) [Ratio] 12.6 % 11.6-14.6 [facility] Immature granulocytes/100 WBC (Bld) 0.500 % 0.0-0.9 [facility] Comment on above: IG% - Immature Granu locytes (promyelocytes, myelocytes and metamyelocytes) > 1% indicates that a LEFT SHIFT is Present. MCH (RBC) [Entitic mass] 31.0 pg 27.0-32.0 [facility] Nucleated RBC/100 WBC (Bld) [Ratio] 0 % 0-5 [facility] MCHC Auto (RBC) [Mass/Vol]Or dered By: Renard Burgos on 01-31-2022 MCHC (RBC) [Mass/Vol] 33.3 g/dL 32-36 [facility] Platelets bldOrdered By: Lyubov Burgos on 01-31-2022 Platelets (Bld) [#/Vol] 204 10*3/uL 150-450 [facility] Absolute lymphocyte countOrd ered By: Renard Burgos on 01-24-2022 Lymphocytes Auto (Unsp spec) [#/Vol] 1.82 10*3/uL 0.83-4.51 [facility] Basophil percentageOrdered B y: Renard Burgos on 01-24-2022 Basophils/100 WBC (Bld) 0.3 % 0-1 [facility] Eosinophils/100 WBC (Bld) 0.3 % 0-5 [facility] Neutrophils (Bld) [#/Vol] 6.1 10*3/uL 2.0-7.7 [facility] Neutrophils/100 WBC (Bld) 69.9 % 47-70 [facility] WBC (Bld) [#/Vol] 8.7 10*3/uL 4.4-11.0 [facility] Blood erythrocytes count (nu mber/volume)Ordered By: Renadr Burgos on 01-24-2022 RBC (Bld) [#/Vol] 4.74 10*6/uL 4.6-6.2 [facility] Blood hemoglobin measurement (mass/volume)Ordered By: Renard Burgos on 01-24-2022 Hemoglobin (Bld) [Mass/Vol] 14.5 g/dL 13.0-16.5 [facility] Blood lymphocytes/100 leukoc ytesOrdered By: Renard Burgos on 01-24-2022 Lymphocytes/100 WBC (Bld) 20.9 % 19-41 [facility] Blood monocytes/100 leukocyt esOrdered By: Renard Burgos on 01-24-2022 Monocytes/100 WBC (Bld) 8.4 % 0-10 [facility] Blood platelet mean volumeOr dered By: Renard Burgos on 01-24-2022 Platelet mean volume (Bld) [Entitic vol] 10.9 fL 6.2-12.0 [facility] Determination of erythrocyte mean corpuscular volume (MCV)Ordered By: Renard Burgos on 01-24-2022 MCV (RBC) [Entitic vol] 92.0 fL 80-94 [facility] Hematocrit Auto (Bld) [Volum e fraction]Ordered By: Renard Burgos on 01-24-2022 Hematocrit (Bld) [Volume fraction] 43.6 % 40-54 [facility] Laboratory - Hematology and Cell countsOrdered By: Renard Burgos on 01-24-2022 Erythrocyte distribution width (RBC) [Entitic vol] 42.3 fL 35.1-43.9 [facility] Erythrocyte distribution width (RBC) [Ratio] 12.5 % 11.6-14.6 [facility] Immature granulocytes/100 WBC (Bld) 0.200 % 0.0-0.9 [facility] Comment on above: IG% - Immature Granu locytes (promyelocytes, myelocytes and metamyelocytes) > 1% indicates that a LEFT SHIFT is Present. MCH (RBC) [Entitic mass] 30.6 pg 27.0-32.0 [facility] Nucleated RBC/100 WBC (Bld) [Ratio] 0 % 0-5 [facility] MCHC Auto (RBC) [Mass/Vol]Or dered By: Renard Burgos on 01-24-2022 MCHC (RBC) [Mass/Vol] 33.3 g/dL 32-36 [facility] Platelets bldOrdered By: Pet lizy Burgos on 01-24-2022 Platelets (Bld) [#/Vol] 192 10*3/uL 150-450 [facility] Absolute lymphocyte counton 01-17-2022 Lymphocytes Auto (Unsp spec) [#/Vol] 1.89 10*3/uL 0.83-4.51 [facility] Work Phone: Basophil percentageon 2021 Basophils/100 WBC (Bld) 0.4 % 0-1 [facility] Work Phone: [phone] Eosinophils/100 WBC (Bld) 0.3 % 0-5 [facility] Work Phone: Neutrophils (Bld) [#/Vol] 4.4 10*3/uL 2.0-7.7 [facility] Work Phone: [phone] Neutrophils/100 WBC (Bld) 62.4 % 47-70 [facility] Work Phone: [phone] WBC (Bld) [#/Vol] 7.0 10*3/uL 4.4-11.0 [facility]: Blood erythrocytes count (nu mber/volume)on 01-17-2022 RBC (Bld) [#/Vol] 4.64 10*6/uL 4.6-6.2 [facility]: Blood hemoglobin measurement (mass/volume)on 01-17-2022 Hemoglobin (Bld) [Mass/Vol] 14.1 g/dL 13.0-16.5 [facility] Work Phone: Blood lymphocytes/100 leukoc yteson 01-17-2022 Lymphocytes/100 WBC (Bld) 27.0 % 19-41 [facility] Work Phone: Blood monocytes/100 leukocyt eson 01-17-2022 Monocytes/100 WBC (Bld) 9.3 % 0-10 [facility] Work Phone: Blood platelet mean volumeon 01-17-2022 Platelet mean volume (Bld) [Entitic vol] 11.1 fL 6.2-12.0 [facility] Work Phone: Determination of erythrocyte mean corpuscular volume (MCV)on 01-17-2022 MCV (RBC) [Entitic vol] 91.8 fL 80-94 [facility] Work Phone: Hematocrit Auto (Bld) [Volum e fraction]on 01-17-2022 Hematocrit (Bld) [Volume fraction] 42.6 % 40-54 [facility] Work Phone: Laboratory - Hematology and Cell countson 01-17-2022 Erythrocyte distribution width (RBC) [Entitic vol] 41.5 fL 35.1-43.9 [facility] Work Phone: Erythrocyte distribution width (RBC) [Ratio] 12.5 % 11.6-14.6 [facility] Work Phone: Immature granulocytes/100 WBC (Bld) 0.600 % 0.0-0.9 [facility] Work Phone: Comment on above: IG% - Immature Granu locytes (promyelocytes, myelocytes and metamyelocytes) > 1% indicates that a LEFT SHIFT is Present. MCH (RBC) [Entitic mass] 30.4 pg 27.0-32.0 [facility] Work Phone: Nucleated RBC/100 WBC (Bld) [Ratio] 0 % 0-5 [facility] Work Phone: MCHC Auto (RBC) [Mass/Vol]on 01-17-2022 MCHC (RBC) [Mass/Vol] 33.1 g/dL 32-36 [facility] Work [facility]: Platelets bldon 01-17-2022 Platelets (Bld) [#/Vol] 200 10*3/uL 150-450 [facility] Work Phone: Absolute lymphocyte counton 01-10-2022 Lymphocytes Auto (Unsp spec) [#/Vol] 2.07 10*3/uL 0.83-4.51 [facility] Work Phone: Basophil percentageon 2021 Basophils/100 WBC (Bld) 0.6 % 0-1 [facility] Work Phone: Eosinophils/100 WBC (Bld) 0.3 % 0-5 [facility] Work Phone: Neutrophils (Bld) [#/Vol] 4.2 10*3/uL 2.0-7.7 [facility] Work Phone: Neutrophils/100 WBC (Bld) 59.2 % 47-70 [facility] Work Phone: WBC (Bld) [#/Vol] 7.0 10*3/uL 4.4-11.0 [facility] Work Phone: [phone] Blood erythrocytes count (nu mber/volume)on 01-10-2022 RBC (Bld) [#/Vol] 4.83 10*6/uL 4.6-6.2 [facility] Work Phone: Blood hemoglobin measurement (mass/volume)on 01-10-2022 Hemoglobin (Bld) [Mass/Vol] 14.8 g/dL 13.0-16.5 [facility] Work Phone: Blood lymphocytes/100 leukoc yteson 01-10-2022 Lymphocytes/100 WBC (Bld) 29.5 % 19-41 [facility] Work Phone: Blood monocytes/100 leukocyt eson 01-10-2022 Monocytes/100 WBC (Bld) 10.1 % 0-10 [facility] Work Phone: Blood platelet mean volumeon 01-10-2022 Platelet mean volume (Bld) [Entitic vol] 10.8 fL 6.2-12.0 [facility] Work Phone: Determination of erythrocyte mean corpuscular volume (MCV)on 01-10-2022 MCV (RBC) [Entitic vol] 97.5 fL 80-94 [facility] Work Phone: Hematocrit Auto (Bld) [Volum e fraction]on 01-10-2022 Hematocrit (Bld) [Volume fraction] 47.1 % 40-54 [facility] Work Phone: Laboratory - Hematology and Cell countson 01-10-2022 Erythrocyte distribution width (RBC) [Entitic vol] 44.9 fL 35.1-43.9 [facility] Work Phone: Erythrocyte distribution width (RBC) [Ratio] 12.7 % 11.6-14.6 [facility] Work Phone: Immature granulocytes/100 WBC (Bld) 0.300 % 0.0-0.9 [facility] Work Phone: Comment on above: IG% - Immature Granu locytes (promyelocytes, myelocytes and metamyelocytes) > 1% indicates that a LEFT SHIFT is Present. MCH (RBC) [Entitic mass] 30.6 pg 27.0-32.0 [facility] Work Phone: Nucleated RBC/100 WBC (Bld) [Ratio] 0 % 0-5 [facility] Work Phone: MCHC Auto (RBC) [Mass/Vol]on 01-10-2022 MCHC (RBC) [Mass/Vol] 31.4 g/dL 32-36 [facility] Work Phone: Platelets bldon 01-10-2022 Platelets (Bld) [#/Vol] 169 10*3/uL 150-450 [facility] Work Phone: Absolute lymphocyte counton 01-04-2022 Lymphocytes Auto (Unsp spec) [#/Vol] 1.84 10*3/uL 0.83-4.51 [facility] Work Phone: Basophil percentageon 2021 Basophils/100 WBC (Bld) 0.3 % 0-1 [facility] Work Phone: Eosinophils/100 WBC (Bld) 0.3 % 0-5 [facility] Work Phone: Neutrophils (Bld) [#/Vol] 4.8 10*3/uL 2.0-7.7 [facility] Work Phone: Neutrophils/100 WBC (Bld) 64.8 % 47-70 [facility] Work Phone: WBC (Bld) [#/Vol] 7.4 10*3/uL 4.4-11.0 [facility] Work Phone: Blood erythrocytes count (nu mber/volume)on 01-04-2022 RBC (Bld) [#/Vol] 4.67 10*6/uL 4.6-6.2 [facility] Work Phone: Blood hemoglobin measurement (mass/volume)on 01-04-2022 Hemoglobin (Bld) [Mass/Vol] 14.2 g/dL 13.0-16.5 [facility] Work Phone: Blood lymphocytes/100 leukoc yteson 01-04-2022 Lymphocytes/100 WBC (Bld) 25.0 % 19-41 [facility] Work Phone: Blood monocytes/100 leukocyt eson 01-04-2022 Monocytes/100 WBC (Bld) 9.1 % 0-10 [facility] Work Phone: Blood platelet mean volumeon 01-04-2022 Platelet mean volume (Bld) [Entitic vol] 11.0 fL 6.2-12.0 [facility] Work Phone: Determination of erythrocyte mean corpuscular volume (MCV)on 01-04-2022 MCV (RBC) [Entitic vol] 91.0 fL 80-94 [facility] Work Phone: Hematocrit Auto (Bld) [Volum e fraction]on 01-04-2022 Hematocrit (Bld) [Volume fraction] 42.5 % 40-54 [facility] Work Phone: Laboratory - Hematology and Cell countson 01-04-2022 Erythrocyte distribution width (RBC) [Entitic vol] 41.4 fL 35.1-43.9 [facility] Work Phone: Erythrocyte distribution width (RBC) [Ratio] 12.7 % 11.6-14.6 [facility] Work Phone: Immature granulocytes/100 WBC (Bld) 0.500 % 0.0-0.9 [facility] Work Phone: Comment on above: IG% - Immature Granu locytes (promyelocytes, myelocytes and metamyelocytes) > 1% indicates that a LEFT SHIFT is Present. MCH (RBC) [Entitic mass] 30.4 pg 27.0-32.0 [facility] Work Phone: Nucleated RBC/100 WBC (Bld) [Ratio] 0 % 0-5 [facility] Work Phone: MCHC Auto (RBC) [Mass/Vol]on 01-04-2022 MCHC (RBC) [Mass/Vol] 33.4 g/dL 32-36 [facility] Work Phone: Platelets bldon 01-04-2022 Platelets (Bld) [#/Vol] 184 10*3/uL 150-450 [facility] Work Phone: Absolute lymphocyte counton 12-27-2021 Lymphocytes Auto (Unsp spec) [#/Vol] 1.79 10*3/uL 0.83-4.51 [facility] Work Phone: Basophil percentageon 2021 Basophils/100 WBC (Bld) 0.4 % 0-1 [facility] Work Phone: Eosinophils/100 WBC (Bld) 0.4 % 0-5 [facility] Work Phone: Neutrophils (Bld) [#/Vol] 4.9 10*3/uL 2.0-7.7 [facility] Work Phone: Neutrophils/100 WBC (Bld) 65.2 % 47-70 [facility] Work Phone: WBC (Bld) [#/Vol] 7.6 10*3/uL 4.4-11.0 [facility] Work Phone: Blood erythrocytes count (nu mber/volume)on 12-27-2021 RBC (Bld) [#/Vol] 4.66 10*6/uL 4.6-6.2 [facility] Work Phone: Blood hemoglobin measurement (mass/volume)on 12-27-2021 Hemoglobin (Bld) [Mass/Vol] 14.5 g/dL 13.0-16.5 [facility] Work Phone: Blood lymphocytes/100 leukoc yteson 12-27-2021 Lymphocytes/100 WBC (Bld) 23.6 % 19-41 [facility] Work Phone: Blood monocytes/100 leukocyt eson 12-27-2021 Monocytes/100 WBC (Bld) 10.0 % 0-10 [facility] Work Phone: Blood platelet mean volumeon 12-27-2021 Platelet mean volume (Bld) [Entitic vol] 10.9 fL 6.2-12.0 [facility] Work Phone: Determination of erythrocyte mean corpuscular volume (MCV)on 12-27-2021 MCV (RBC) [Entitic vol] 91.0 fL 80-94 [facility] Work Phone: Hematocrit Auto (Bld) [Volum e fraction]on 12-27-2021 Hematocrit (Bld) [Volume fraction] 42.4 % 40-54 [facility] Work Phone: Laboratory - Hematology and Cell countson 12-27-2021 Erythrocyte distribution width (RBC) [Entitic vol] 41.2 fL 35.1-43.9 [facility] Work Phone: Erythrocyte distribution width (RBC) [Ratio] 12.6 % 11.6-14.6 [facility] Work Phone: Immature granulocytes/100 WBC (Bld) 0.400 % 0.0-0.9 [facility] Work Phone: Comment on above: IG% - Immature Granu locytes (promyelocytes, myelocytes and metamyelocytes) > 1% indicates that a LEFT SHIFT is Present. MCH (RBC) [Entitic mass] 31.1 pg 27.0-32.0 [facility] Work Phone: Nucleated RBC/100 WBC (Bld) [Ratio] 0 % 0-5 [facility] Work Phone: MCHC Auto (RBC) [Mass/Vol]on 12-27-2021 [facility] (RBC) [Mass/Vol] 34.2 g/dL 32-36 [facility] Work Phone: Platelets bldon 12-27-2021 Platelets (Bld) [#/Vol] 185 10*3/uL 150-450 [facility] Work Phone: Absolute lymphocyte counton 12-20-2021 Lymphocytes Auto (Unsp spec) [#/Vol] 2.02 10*3/uL 0.83-4.51 [facility] Work Phone: Basophil percentageon 2021 Basophils/100 WBC (Bld) 0.2 % 0-1 [facility] Work Phone: Eosinophils/100 WBC (Bld) 0.3 % 0-5 [facility] Work Phone: Neutrophils (Bld) [#/Vol] 3.6 10*3/uL 2.0-7.7 [facility] Work Phone: Neutrophils/100 WBC (Bld) 57.8 % 47-70 [facility] Work Phone: WBC (Bld) [#/Vol] 6.1 10*3/uL 4.4-11.0 [facility] Work [facility]: Blood erythrocytes count (nu mber/volume)on 12-20-2021 RBC (Bld) [#/Vol] 4.81 10*6/uL 4.6-6.2 [facility] Work [facility]: Blood hemoglobin measurement (mass/volume)on 12-20-2021 Hemoglobin (Bld) [Mass/Vol] 14.8 g/dL 13.0-16.5 [facility] Work Phone: Blood lymphocytes/100 leukoc yteson 12-20-2021 Lymphocytes/100 WBC (Bld) 32.9 % 19-41 [facility] Work Phone: Blood monocytes/100 leukocyt eson 12-20-2021 Monocytes/100 WBC (Bld) 8.3 % 0-10 [facility] Work Phone: Blood platelet adequacy dete ction by light microscopyon 12-20-2021 Platelets LM Ql (Bld) ADEQUATE ADEQ [facility] Work Phone: Blood platelet mean volumeon 12-20-2021 Platelet mean volume (Bld) [Entitic vol] 11.1 fL 6.2-12.0 [facility] Work Phone: Determination of erythrocyte mean corpuscular volume (MCV)on 12-20-2021 MCV (RBC) [Entitic vol] 93.1 fL 80-94 [facility] Work Phone: Hematocrit Auto (Bld) [Volum e fraction]on 12-20-2021 Hematocrit (Bld) [Volume fraction] 44.8 % 40-54 [facility] Work Phone: Laboratory - Hematology and Cell countson 12-20-2021 Erythrocyte distribution width (RBC) [Entitic vol] 42.4 fL 35.1-43.9 [facility] Work Phone: Erythrocyte distribution width (RBC) [Ratio] 12.4 % 11.6-14.6 [facility] Work Phone: Immature granulocytes/100 WBC (Bld) 0.500 % 0.0-0.9 [facility] Work Phone: Comment on above: IG% - Immature Granu locytes (promyelocytes, myelocytes and metamyelocytes) > 1% indicates that a LEFT SHIFT is Present. MCH (RBC) [Entitic mass] 30.8 pg 27.0-32.0 [facility] Work Phone: Nucleated RBC/100 WBC (Bld) [Ratio] 0 % 0-5 [facility] Work Phone: MCHC Auto (RBC) [Mass/Vol]on 12-20-2021 MCHC (RBC) [Mass/Vol] 33.0 g/dL 32-36 [facility] Work Phone: Platelets bldon 12-20-2021 Platelets (Bld) [#/Vol] See comment 150-450 [facility] Work Phone: Comment on above: Please note: [...] Auto (Unsp spec) [#/Vol] 1.88 10*3/uL 0.83-4.51 [facility] Work Phone: Basophil percentageon 2021 Basophils/100 WBC (Bld) 0.6 % 0-1 [facility] Work Phone: Eosinophils/100 WBC (Bld) 0.3 % 0-5 [facility] Work Phone: [phone] Neutrophils (Bld) [#/Vol] 4.5 10*3/uL 2.0-7.7 [facility] Work Phone: Neutrophils/100 WBC (Bld) 63.6 % 47-70 [facility] Work Phone: WBC (Bld) [#/Vol] 7.1 10*3/uL 4.4-11.0 [facility] Work Phone: Blood erythrocytes count (nu mber/volume)on 12-13-2021 RBC (Bld) [#/Vol] 4.70 10*6/uL 4.6-6.2 [facility] Work Phone: Blood hemoglobin measurement (mass/volume)on 12-13-2021 Hemoglobin (Bld) [Mass/Vol] 14.4 g/dL 13.0-16.5 [facility] Work Phone: Blood lymphocytes/100 leukoc yteson 12-13-2021 Lymphocytes/100 WBC (Bld) 26.7 % 19-41 [facility] Work Phone: Blood monocytes/100 leukocyt eson 12-13-2021 Monocytes/100 WBC (Bld) 8.5 % 0-10 [facility] Work Phone: Blood platelet mean volumeon 12-13-2021 Platelet mean volume (Bld) [Entitic vol] 10.9 fL 6.2-12.0 [facility] Work Phone: Determination of erythrocyte mean corpuscular volume (MCV)on 12-13-2021 MCV (RBC) [Entitic vol] 90.9 fL 80-94 [facility] Work Phone: Hematocrit Auto (Bld) [Volum e fraction]on 12-13-2021 Hematocrit (Bld) [Volume fraction] 42.7 % 40-54 [facility] Work Phone: Laboratory - Hematology and Cell countson 12-13-2021 Erythrocyte distribution width (RBC) [Entitic vol] 42.1 fL 35.1-43.9 [facility] Work Phone: Erythrocyte distribution width (RBC) [Ratio] 12.6 % 11.6-14.6 [facility] Work Phone: [phone] Immature granulocytes/100 WBC (Bld) 0.300 % 0.0-0.9 [facility] Work Phone: Comment on above: IG% - Immature Granu locytes (promyelocytes, myelocytes and metamyelocytes) > 1% indicates that a LEFT SHIFT is Present. MCH (RBC) [Entitic mass] 30.6 pg 27.0-32.0 [facility] Work Phone: [phone] Nucleated RBC/100 WBC (Bld) [Ratio] 0 % 0-5 [facility] Work Phone: [phone] MCHC Auto (RBC) [Mass/Vol]on 12-13-2021 MCHC (RBC) [Mass/Vol] 33.7 g/dL 32-36 [facility] Work Phone: [phone] Platelets bldon 12-13-2021 Platelets (Bld) [#/Vol] 194 10*3/uL 150-450 [facility] Work Phone: [phone] Absolute lymphocyte counton 12-06-2021 Lymphocytes Auto (Unsp spec) [#/Vol] 1.91 10*3/uL 0.83-4.51 [facility] Work Phone: Basophil percentageon 2021 Basophils/100 WBC (Bld) 0.4 % 0-1 [facility] Work Phone: Eosinophils/100 WBC (Bld) 0.3 % 0-5 [facility] Work Phone: Neutrophils (Bld) [#/Vol] 4.4 10*3/uL 2.0-7.7 [facility] Work Phone: Neutrophils/100 WBC (Bld) 62.2 % 47-70 [facility] Work Phone: WBC (Bld) [#/Vol] 7.0 10*3/uL 4.4-11.0 [facility] Work Phone: [phone] Blood erythrocytes count (nu mber/volume)on 12-06-2021 RBC (Bld) [#/Vol] 4.58 10*6/uL 4.6-6.2 [facility] Work Phone: Blood hemoglobin measurement (mass/volume)on 12-06-2021 Hemoglobin (Bld) [Mass/Vol] 13.8 g/dL 13.0-16.5 [facility] Work Phone: Blood lymphocytes/100 leukoc yteson 12-06-2021 Lymphocytes/100 WBC (Bld) 27.2 % 19-41 [facility] Work Phone: Blood monocytes/100 leukocyt eson 12-06-2021 Monocytes/100 WBC (Bld) 9.6 % 0-10 [facility] Work Phone: Blood platelet mean volumeon 12-06-2021 Platelet mean volume (Bld) [Entitic vol] 11.1 fL 6.2-12.0 [facility] Work Phone: Determination of erythrocyte mean corpuscular volume (MCV)on 12-06-2021 MCV (RBC) [Entitic vol] 92.1 fL 80-94 [facility] Work Phone: Hematocrit Auto (Bld) [Volum e fraction]on 12-06-2021 Hematocrit (Bld) [Volume fraction] 42.2 % 40-54 [facility] Work Phone: Laboratory - Hematology and Cell countson 12-06-2021 Erythrocyte distribution width (RBC) [Entitic vol] 42.1 fL 35.1-43.9 [facility] Work Phone: Erythrocyte distribution width (RBC) [Ratio] 12.6 % 11.6-14.6 [facility] Work Phone: Immature granulocytes/100 WBC (Bld) 0.300 % 0.0-0.9 [facility] Work Phone: Comment on above: IG% - Immature Granu locytes (promyelocytes, myelocytes and metamyelocytes) > 1% indicates that a LEFT SHIFT is Present. MCH (RBC) [Entitic mass] 30.1 pg 27.0-32.0 [facility] Work Phone: Nucleated RBC/100 WBC (Bld) [Ratio] 0 % 0-5 [facility] Work Phone: MCHC Auto (RBC) [Mass/Vol]on 12-06-2021 MCHC (RBC) [Mass/Vol] 32.7 g/dL 32-36 [facility] Work [facility]: Platelets bldon 12-06-2021 Platelets (Bld) [#/Vol] 180 10*3/uL 150-450 [facility] Work Phone: [phone] Absolute lymphocyte counton 11-29-2021 Lymphocytes Auto (Unsp spec) [#/Vol] 2.00 10*3/uL 0.83-4.51 [facility] Work Phone: [phone] Basophil percentageon 2021 Basophils/100 WBC (Bld) 0.4 % 0-1 [facility] Work Phone: Eosinophils/100 WBC (Bld) 0.3 % 0-5 [facility] Work Phone: Neutrophils (Bld) [#/Vol] 4.4 10*3/uL 2.0-7.7 [facility] Work Phone: [phone] Neutrophils/100 WBC (Bld) 62.8 % 47-70 [facility] Work Phone: WBC (Bld) [#/Vol] 7.0 10*3/uL 4.4-11.0 [facility] Work Phone: [phone] Blood erythrocytes count (nu mber/volume)on 11-29-2021 RBC (Bld) [#/Vol] 4.72 10*6/uL 4.6-6.2 [facility] Work Phone: [phone] Blood hemoglobin measurement (mass/volume)on 11-29-2021 Hemoglobin (Bld) [Mass/Vol] 14.6 g/dL 13.0-16.5 [facility] Work Phone: Blood lymphocytes/100 leukoc yteson 11-29-2021 Lymphocytes/100 WBC (Bld) 28.6 % 19-41 [facility] Work Phone: Blood monocytes/100 leukocyt eson 11-29-2021 Monocytes/100 WBC (Bld) 7.6 % 0-10 [facility] Work Phone: Blood platelet mean volumeon 11-29-2021 Platelet mean volume (Bld) [Entitic vol] 11.1 fL 6.2-12.0 [facility] Work Phone: Determination of erythrocyte mean corpuscular volume (MCV)on 11-29-2021 MCV (RBC) [Entitic vol] 91.9 fL 80-94 [facility] Work Phone: Hematocrit Auto (Bld) [Volum e fraction]on 11-29-2021 Hematocrit (Bld) [Volume fraction] 43.4 % 40-54 [facility] Work Phone: Laboratory - Hematology and Cell countson 11-29-2021 Erythrocyte distribution width (RBC) [Entitic vol] 41.8 fL 35.1-43.9 [facility] Work Phone: Erythrocyte distribution width (RBC) [Ratio] 12.4 % 11.6-14.6 [facility] Work Phone: Immature granulocytes/100 WBC (Bld) 0.300 % 0.0-0.9 [facility] Work Phone: Comment on above: IG% - Immature Granu locytes (promyelocytes, myelocytes and metamyelocytes) > 1% indicates that a LEFT SHIFT is Present. MCH (RBC) [Entitic mass] 30.9 pg 27.0-32.0 [facility] Work Phone: Nucleated RBC/100 WBC (Bld) [Ratio] 0 % 0-5 [facility] Work Phone: MCHC Auto (RBC) [Mass/Vol]on 11-29-2021 MCHC (RBC) [Mass/Vol] 33.6 g/dL 32-36 [facility] Work Phone: [phone] Platelets bldon 11-29-2021 Platelets (Bld) [#/Vol] 205 10*3/uL 150-450 [facility] Work Phone: [phone] Absolute lymphocyte counton 11-22-2021 Lymphocytes Auto (Unsp spec) [#/Vol] 2.25 10*3/uL 0.83-4.51 [facility] Work Phone: [phone] Basophil percentageon 2021 Basophils/100 WBC (Bld) 0.4 % 0-1 [facility] Work Phone: [phone] Eosinophils/100 WBC (Bld) 0.4 % 0-5 [facility] Work Phone: [phone] Neutrophils (Bld) [#/Vol] 5.1 10*3/uL 2.0-7.7 [facility] Work Phone: [phone] Neutrophils/100 WBC (Bld) 61.7 % 47-70 [facility] Work Phone: [phone] WBC (Bld) [#/Vol] 8.3 10*3/uL 4.4-11.0 [facility] Work Phone: Blood erythrocytes count (nu mber/volume)on 11-22-2021 RBC (Bld) [#/Vol] 4.47 10*6/uL 4.6-6.2 [facility] Work Phone: [phone] Blood hemoglobin measurement (mass/volume)on 11-22-2021 Hemoglobin (Bld) [Mass/Vol] 13.5 g/dL 13.0-16.5 [facility] Work Phone: [phone] Blood lymphocytes/100 leukoc yteson 11-22-2021 Lymphocytes/100 WBC (Bld) 27.2 % 19-41 [facility] Work Phone: [phone] Blood monocytes/100 leukocyt eson 11-22-2021 Monocytes/100 WBC (Bld) 9.9 % 0-10 [facility] Work Phone: Blood platelet mean volumeon 11-22-2021 Platelet mean volume (Bld) [Entitic vol] 11.1 fL 6.2-12.0 [facility] Work Phone: Determination of erythrocyte mean corpuscular volume (MCV)on 11-22-2021 MCV (RBC) [Entitic vol] 92.2 fL 80-94 [facility] Work Phone: Hematocrit Auto (Bld) [Volum e fraction]on 11-22-2021 Hematocrit (Bld) [Volume fraction] 41.2 % 40-54 [facility] Work Phone: Laboratory - Hematology and Cell countson 11-22-2021 Erythrocyte distribution width (RBC) [Entitic vol] 42.3 fL 35.1-43.9 [facility] Work Phone: Erythrocyte distribution width (RBC) [Ratio] 12.6 % 11.6-14.6 [facility] Work Phone: Immature granulocytes/100 WBC (Bld) 0.400 % 0.0-0.9 [facility] Work Phone: Comment on above: IG% - Immature Granu locytes (promyelocytes, myelocytes and metamyelocytes) > 1% indicates that a LEFT SHIFT is Present. MCH (RBC) [Entitic mass] 30.2 pg 27.0-32.0 [facility] Work Phone: Nucleated RBC/100 WBC (Bld) [Ratio] 0 % 0-5 [facility] Work Phone: MCHC Auto (RBC) [Mass/Vol]on 11-22-2021 MCHC (RBC) [Mass/Vol] 32.8 g/dL 32-36 [facility] Work Phone: Platelets bldon 11-22-2021 Platelets (Bld) [#/Vol] 190 10*3/uL 150-450 [facility] Work Phone: Absolute lymphocyte counton 11-15-2021 Lymphocytes Auto (Unsp spec) [#/Vol] 2.09 10*3/uL 0.83-4.51 [facility] Work Phone: Basophil percentageon 2021 Basophils/100 WBC (Bld) 0.6 % 0-1 [facility] Work Phone: [phone] Eosinophils/100 WBC (Bld) 0.4 % 0-5 [facility] Work Phone: [phone] Neutrophils (Bld) [#/Vol] 4.2 10*3/uL 2.0-7.7 [facility] Work Phone: Neutrophils/100 WBC (Bld) 59.1 % 47-70 [facility] Work Phone: [phone] WBC (Bld) [#/Vol] 7.1 10*3/uL 4.4-11.0 [facility] Work Phone: Blood erythrocytes count (nu mber/volume)on 11-15-2021 RBC (Bld) [#/Vol] 4.72 10*6/uL 4.6-6.2 [facility] Work Phone: Blood hemoglobin measurement (mass/volume)on 11-15-2021 Hemoglobin (Bld) [Mass/Vol] 14.6 g/dL 13.0-16.5 [facility] Work Phone: Blood lymphocytes/100 leukoc yteson 11-15-2021 Lymphocytes/100 WBC (Bld) 29.4 % 19-41 [facility] Work Phone: [phone] Blood monocytes/100 leukocyt eson 11-15-2021 Monocytes/100 WBC (Bld) 10.1 % 0-10 [facility] Work Phone: [phone] Blood platelet mean volumeon 11-15-2021 Platelet mean volume (Bld) [Entitic vol] 10.7 fL 6.2-12.0 [facility] Work Phone: Determination of erythrocyte mean corpuscular volume (MCV)on 11-15-2021 MCV (RBC) [Entitic vol] 91.9 fL 80-94 [facility] Work Phone: Hematocrit Auto (Bld) [Volum e fraction]on 11-15-2021 Hematocrit (Bld) [Volume fraction] 43.4 % 40-54 [facility] Work Phone: Laboratory - Hematology and Cell countson 11-15-2021 Erythrocyte distribution width (RBC) [Entitic vol] 41.9 fL 35.1-43.9 [facility] Work Phone: Erythrocyte distribution width (RBC) [Ratio] 12.4 % 11.6-14.6 [facility] Work Phone: Immature granulocytes/100 WBC (Bld) 0.400 % 0.0-0.9 [facility] Work Phone: Comment on above: IG% - Immature Granu locytes (promyelocytes, myelocytes and metamyelocytes) > 1% indicates that a LEFT SHIFT is Present. MCH (RBC) [Entitic mass] 30.9 pg 27.0-32.0 [facility] Work Phone: Nucleated RBC/100 WBC (Bld) [Ratio] 0 % 0-5 [facility] Work Phone: MCHC Auto (RBC) [Mass/Vol]on 11-15-2021 MCHC (RBC) [Mass/Vol] 33.6 g/dL 32-36 [facility] Work Phone: Platelets bldon 11-15-2021 Platelets (Bld) [#/Vol] 191 10*3/uL 150-450 [facility] Work Phone: Absolute lymphocyte counton 11-08-2021 Lymphocytes Auto (Unsp spec) [#/Vol] 1.97 10*3/uL 0.83-4.51 [facility] Work Phone: Basophil percentageon 2021 Basophils/100 WBC (Bld) 0.3 % 0-1 [facility] Work Phone: Eosinophils/100 WBC (Bld) 0.3 % 0-5 [facility] Work Phone: Neutrophils (Bld) [#/Vol] 5.1 10*3/uL 2.0-7.7 [facility] Work Phone: Neutrophils/100 WBC (Bld) 64.6 % 47-70 [facility] Work Phone: WBC (Bld) [#/Vol] 7.8 10*3/uL 4.4-11.0 [facility] Work Phone: Blood erythrocytes count (nu mber/volume)on 11-08-2021 RBC (Bld) [#/Vol] 4.53 10*6/uL 4.6-6.2 [facility] Work Phone: Blood hemoglobin measurement (mass/volume)on 11-08-2021 Hemoglobin (Bld) [Mass/Vol] 14.2 g/dL 13.0-16.5 [facility] Work Phone: Blood lymphocytes/100 leukoc yteson 11-08-2021 Lymphocytes/100 WBC (Bld) 25.2 % 19-41 [facility] Work Phone: [phone] Blood monocytes/100 leukocyt eson 11-08-2021 Monocytes/100 WBC (Bld) 9.3 % 0-10 [facility] Work Phone: Blood platelet mean volumeon 11-08-2021 Platelet mean volume (Bld) [Entitic vol] 10.9 fL 6.2-12.0 [facility] Work Phone: Determination of erythrocyte mean corpuscular volume (MCV)on 11-08-2021 MCV (RBC) [Entitic vol] 92.7 fL 80-94 [facility] Work Phone: Hematocrit Auto (Bld) [Volum e fraction]on 11-08-2021 Hematocrit (Bld) [Volume fraction] 42.0 % 40-54 [facility] Work Phone: Laboratory - Hematology and Cell countson 11-08-2021 Erythrocyte distribution width (RBC) [Entitic vol] 42.3 fL 35.1-43.9 [facility] Work Phone: [phone] Erythrocyte distribution width (RBC) [Ratio] 12.5 % 11.6-14.6 [facility] Work Phone: [phone] Immature granulocytes/100 WBC (Bld) 0.300 % 0.0-0.9 [facility] Work Phone: [phone] Comment on above: IG% - Immature Granu locytes (promyelocytes, myelocytes and metamyelocytes) > 1% indicates that a LEFT SHIFT is Present. MCH (RBC) [Entitic mass] 31.3 pg 27.0-32.0 [facility] Work Phone: Nucleated RBC/100 WBC (Bld) [Ratio] 0 % 0-5 [facility] Work Phone: MCHC Auto (RBC) [Mass/Vol]on 11-08-2021 MCHC (RBC) [Mass/Vol] 33.8 g/dL 32-36 [facility] Work Phone: [phone] Platelets bldon 11-08-2021 Platelets (Bld) [#/Vol] 207 10*3/uL 150-450 [facility] Work Phone: Absolute lymphocyte counton 10-25-2021 Lymphocytes Auto (Unsp spec) [#/Vol] 2.05 10*3/uL 0.83-4.51 [facility] Work Phone: [phone] Basophil percentageon 2021 Basophils/100 WBC (Bld) 0.4 % 0-1 [facility] Work Phone: Eosinophils/100 WBC (Bld) 0.3 % 0-5 [facility] Work Phone: [phone] Neutrophils (Bld) [#/Vol] 4.2 10*3/uL 2.0-7.7 [facility] Work Phone: Neutrophils/100 WBC (Bld) 61.3 % 47-70 [facility] Work Phone: WBC (Bld) [#/Vol] 6.8 10*3/uL 4.4-11.0 [facility] Work Phone: Blood erythrocytes count (nu mber/volume)on 10-25-2021 RBC (Bld) [#/Vol] 4.56 10*6/uL 4.6-6.2 [facility] Work Phone: Blood hemoglobin measurement (mass/volume)on 10-25-2021 Hemoglobin (Bld) [Mass/Vol] 13.9 g/dL 13.0-16.5 [facility] Work Phone: Blood lymphocytes/100 leukoc yteson 10-25-2021 Lymphocytes/100 WBC (Bld) 30.1 % 19-41 [facility] Work Phone: Blood monocytes/100 leukocyt eson 10-25-2021 Monocytes/100 WBC (Bld) 7.3 % 0-10 [facility] Work Phone: Blood platelet mean volumeon 10-25-2021 Platelet mean volume (Bld) [Entitic vol] 10.6 fL 6.2-12.0 [facility] Work Phone: Determination of erythrocyte mean corpuscular volume (MCV)on 10-25-2021 MCV (RBC) [Entitic vol] 91.0 fL 80-94 [facility] Work Phone: Hematocrit Auto (Bld) [Volum e fraction]on 10-25-2021 Hematocrit (Bld) [Volume fraction] 41.5 % 40-54 [facility] Work Phone: Laboratory - Hematology and Cell countson 10-25-2021 Erythrocyte distribution width (RBC) [Entitic vol] 41.7 fL 35.1-43.9 [facility] Work Phone: Erythrocyte distribution width (RBC) [Ratio] 12.6 % 11.6-14.6 [facility] Work Phone: Immature granulocytes/100 WBC (Bld) 0.600 % 0.0-0.9 [facility] Work Phone: Comment on above: IG% - Immature Granu locytes (promyelocytes, myelocytes and metamyelocytes) > 1% indicates that a LEFT SHIFT is Present. MCH (RBC) [Entitic mass] 30.5 pg 27.0-32.0 [facility] Work Phone: Nucleated RBC/100 WBC (Bld) [Ratio] 0 % 0-5 [facility] Work Phone: [phone] MCHC Auto (RBC) [Mass/Vol]on 10-25-2021 MCHC (RBC) [Mass/Vol] 33.5 g/dL 32-36 [facility] Work Phone: Platelets bldon 10-25-2021 Platelets (Bld) [#/Vol] 191 10*3/uL 150-450 [facility] Work Phone: Absolute lymphocyte counton 10-18-2021 Lymphocytes Auto (Unsp spec) [#/Vol] 1.66 10*3/uL 0.83-4.51 [facility] Work Phone: Basophil percentageon 2021 Basophils/100 WBC (Bld) 0.5 % 0-1 [facility] Work Phone: Eosinophils/100 WBC (Bld) 0.2 % 0-5 [facility] Work Phone: Neutrophils (Bld) [#/Vol] 4.3 10*3/uL 2.0-7.7 [facility] Work Phone: Neutrophils/100 WBC (Bld) 65.0 % 47-70 [facility] Work Phone: WBC (Bld) [#/Vol] 6.6 10*3/uL 4.4-11.0 [facility] Work Phone: Blood erythrocytes count (nu mber/volume)on 10-18-2021 RBC (Bld) [#/Vol] 4.57 10*6/uL 4.6-6.2 [facility] Work Phone: Blood hemoglobin measurement (mass/volume)on 10-18-2021 Hemoglobin (Bld) [Mass/Vol] 14.1 g/dL 13.0-16.5 [facility] Work Phone: Blood lymphocytes/100 leukoc yteson 10-18-2021 Lymphocytes/100 WBC (Bld) 25.2 % 19-41 [facility] Work Phone: Blood monocytes/100 leukocyt eson 10-18-2021 Monocytes/100 WBC (Bld) 8.8 % 0-10 [facility] Work Phone: Blood platelet mean volumeon 10-18-2021 Platelet mean volume (Bld) [Entitic vol] 10.6 fL 6.2-12.0 [facility] Work Phone: Determination of erythrocyte mean corpuscular volume (MCV)on 10-18-2021 MCV (RBC) [Entitic vol] 91.7 fL 80-94 [facility] Work Phone: Hematocrit Auto (Bld) [Volum e fraction]on 10-18-2021 Hematocrit (Bld) [Volume fraction] 41.9 % 40-54 [facility] Work Phone: Laboratory - Hematology and Cell countson 10-18-2021 Erythrocyte distribution width (RBC) [Entitic vol] 41.6 fL 35.1-43.9 [facility] Work Phone: Erythrocyte distribution width (RBC) [Ratio] 12.5 % 11.6-14.6 [facility] Work Phone: Immature granulocytes/100 WBC (Bld) 0.300 % 0.0-0.9 [facility] Work Phone: Comment on above: IG% - Immature Granu locytes (promyelocytes, myelocytes and metamyelocytes) > 1% indicates that a LEFT SHIFT is Present. MCH (RBC) [Entitic mass] 30.9 pg 27.0-32.0 [facility] Work Phone: Nucleated RBC/100 WBC (Bld) [Ratio] 0 % 0-5 [facility] Work Phone: MCHC Auto (RBC) [Mass/Vol]on 10-18-2021 MCHC (RBC) [Mass/Vol] 33.7 g/dL 32-36 [facility] Work Phone: Platelets bldon 10-18-2021 Platelets (Bld) [#/Vol] 185 10*3/uL 150-450 [facility] Work Phone: Absolute lymphocyte counton 10-11-2021 Lymphocytes Auto (Unsp spec) [#/Vol] 1.66 10*3/uL 0.83-4.51 [facility] Work Phone: Basophil percentageon 2021 Basophils/100 WBC (Bld) 0.5 % 0-1 [facility] Work Phone: Eosinophils/100 WBC (Bld) 0.1 % 0-5 [facility] Work Phone: Neutrophils (Bld) [#/Vol] 5.9 10*3/uL 2.0-7.7 [facility] Work Phone: Neutrophils/100 WBC (Bld) 70.8 % 47-70 [facility] Work Phone: WBC (Bld) [#/Vol] 8.3 10*3/uL 4.4-11.0 [facility] Work Phone: Blood erythrocytes count (nu mber/volume)on 10-11-2021 RBC (Bld) [#/Vol] 4.66 10*6/uL 4.6-6.2 [facility] Work Phone: Blood hemoglobin measurement (mass/volume)on 10-11-2021 Hemoglobin (Bld) [Mass/Vol] 14.1 g/dL 13.0-16.5 [facility] Work Phone: Blood lymphocytes/100 leukoc yteson 10-11-2021 Lymphocytes/100 WBC (Bld) 20.0 % 19-41 [facility] Work Phone: Blood monocytes/100 leukocyt eson 10-11-2021 Monocytes/100 WBC (Bld) 8.2 % 0-10 [facility] Work Phone: Blood platelet mean volumeon 10-11-2021 Platelet mean volume (Bld) [Entitic vol] 10.7 fL 6.2-12.0 [facility] Work Phone: Determination of erythrocyte mean corpuscular volume (MCV)on 10-11-2021 MCV (RBC) [Entitic vol] 91.8 fL 80-94 [facility] Work Phone: Hematocrit Auto (Bld) [Volum e fraction]on 10-11-2021 Hematocrit (Bld) [Volume fraction] 42.8 % 40-54 [facility] Work Phone: Laboratory - Hematology and Cell countson 10-11-2021 Erythrocyte distribution width (RBC) [Entitic vol] 42.8 fL 35.1-43.9 [facility] Work Phone: Erythrocyte distribution width (RBC) [Ratio] 12.8 % 11.6-14.6 [facility] Work Phone: Immature granulocytes/100 WBC (Bld) 0.400 % 0.0-0.9 [facility] Work Phone: Comment on above: IG% - Immature Granu locytes (promyelocytes, myelocytes and metamyelocytes) > 1% indicates that a LEFT SHIFT is Present. MCH (RBC) [Entitic mass] 30.3 pg 27.0-32.0 [facility] Work Phone: Nucleated RBC/100 WBC (Bld) [Ratio] 0 % 0-5 [facility] Work Phone: MCHC Auto (RBC) [Mass/Vol]on 10-11-2021 MCHC (RBC) [Mass/Vol] 32.9 g/dL 32-36 [facility] Work Phone: Platelets bldon 10-11-2021 Platelets (Bld) [#/Vol] 193 10*3/uL 150-450 [facility] Work Phone: [phone] Absolute lymphocyte counton 10-04-2021 Lymphocytes Auto (Unsp spec) [#/Vol] 1.97 10*3/uL 0.83-4.51 [facility] Work Phone: Basophil percentageon 2021 Basophils/100 WBC (Bld) 0.5 % 0-1 [facility] Work Phone: [phone] Eosinophils/100 WBC (Bld) 0.1 % 0-5 [facility] Work Phone: Neutrophils (Bld) [#/Vol] 5.0 10*3/uL 2.0-7.7 [facility] Work Phone: Neutrophils/100 WBC (Bld) 64.4 % 47-70 [facility] Work Phone: [phone] WBC (Bld) [#/Vol] 7.7 10*3/uL 4.4-11.0 [facility] Work Phone: Blood erythrocytes count (nu mber/volume)on 10-04-2021 RBC (Bld) [#/Vol] 4.52 10*6/uL 4.6-6.2 [facility] Work Phone: [phone] Blood hemoglobin measurement (mass/volume)on 10-04-2021 Hemoglobin (Bld) [Mass/Vol] 13.9 g/dL 13.0-16.5 [facility] Work [phone] Blood lymphocytes/100 leukoc yteson 10-04-2021 Lymphocytes/100 WBC (Bld) 25.6 % 19-41 [facility] Work Phone: Blood monocytes/100 leukocyt eson 10-04-2021 Monocytes/100 WBC (Bld) 9.0 % 0-10 [facility] Work Phone: Blood platelet mean volumeon 10-04-2021 Platelet mean volume (Bld) [Entitic vol] 11.0 fL 6.2-12.0 [facility] Work Phone: Determination of erythrocyte mean corpuscular volume (MCV)on 10-04-2021 MCV (RBC) [Entitic vol] 91.4 fL 80-94 [facility] Work Phone: Hematocrit Auto (Bld) [Volum e fraction]on 10-04-2021 Hematocrit (Bld) [Volume fraction] 41.3 % 40-54 [facility] Work Phone: Laboratory - Hematology and Cell countson 10-04-2021 Erythrocyte distribution width (RBC) [Entitic vol] 42.2 fL 35.1-43.9 [facility] Work Phone: Erythrocyte distribution width (RBC) [Ratio] 12.8 % 11.6-14.6 [facility] Work Phone: Immature granulocytes/100 WBC (Bld) 0.400 % 0.0-0.9 [facility] Work Phone: Comment on above: IG% - Immature Granu locytes (promyelocytes, myelocytes and metamyelocytes) > 1% indicates that a LEFT SHIFT is Present. MCH (RBC) [Entitic mass] 30.8 pg 27.0-32.0 [facility] Work Phone: Nucleated RBC/100 WBC (Bld) [Ratio] 0 % 0-5 [facility] Work Phone: MCHC Auto (RBC) [Mass/Vol]on 10-04-2021 MCHC (RBC) [Mass/Vol] 33.7 g/dL 32-36 [facility] Work Phone: Platelets bldon 10-04-2021 Platelets (Bld) [#/Vol] 179 10*3/uL 150-450 [facility] Work Phone: Absolute lymphocyte counton 09-28-2021 Lymphocytes Auto (Unsp spec) [#/Vol] 2.10 10*3/uL 0.83-4.51 [facility] Work Phone: Basophil percentageon 2021 Basophils/100 WBC (Bld) 0.4 % 0-1 [facility] Work Phone: Eosinophils/100 WBC (Bld) 0.3 % 0-5 [facility] Work Phone: Neutrophils (Bld) [#/Vol] 4.3 10*3/uL 2.0-7.7 [facility] Work Phone: Neutrophils/100 WBC (Bld) 59.9 % 47-70 [facility] Work Phone: WBC (Bld) [#/Vol] 7.2 10*3/uL 4.4-11.0 [facility] Work Phone: [phone] Blood erythrocytes count (nu mber/volume)on 09-28-2021 RBC (Bld) [#/Vol] 4.34 10*6/uL 4.6-6.2 [facility] Work Phone: [phone] Blood hemoglobin measurement (mass/volume)on 09-28-2021 Hemoglobin (Bld) [Mass/Vol] 13.3 g/dL 13.0-16.5 [facility] Work Phone: Blood lymphocytes/100 leukoc yteson 09-28-2021 Lymphocytes/100 WBC (Bld) 29.3 % 19-41 [facility] Work Phone: Blood monocytes/100 leukocyt eson 09-28-2021 Monocytes/100 WBC (Bld) 9.8 % 0-10 [facility] Work Phone: Blood platelet mean volumeon 05-31-2022 Platelet mean volume (Bld) [Entitic vol] 10.7 fL 6.2-12.0 [facility] Work Phone: Determination of erythrocyte mean corpuscular volume (MCV)on 09-28-2021 MCV (RBC) [Entitic vol] 91.2 fL 80-94 [facility] Work Phone: Hematocrit Auto (Bld) [Volum e fraction]on 09-28-2021 Hematocrit (Bld) [Volume fraction] 39.6 % 40-54 [facility] Work Phone: Laboratory - Hematology and Cell countson 09-28-2021 Erythrocyte distribution width (RBC) [Entitic vol] 41.8 fL 35.1-43.9 [facility] Work Phone: Erythrocyte distribution width (RBC) [Ratio] 12.6 % 11.6-14.6 [facility] Work Phone: Immature granulocytes/100 WBC (Bld) 0.300 % 0.0-0.9 [facility] Work Phone: [phone] Comment on above: IG% - Immature Granu locytes (promyelocytes, myelocytes and metamyelocytes) > 1% indicates that a LEFT SHIFT is Present. MCH (RBC) [Entitic mass] 30.6 pg 27.0-32.0 [facility] Work Phone: Nucleated RBC/100 WBC (Bld) [Ratio] 0 % 0-5 [facility] Work Phone: MCHC Auto (RBC) [Mass/Vol]on 09-28-2021 MCHC (RBC) [Mass/Vol] 33.6 g/dL 32-36 [facility] Work Phone: [phone] Platelets bldon 09-28-2021 Platelets (Bld) [#/Vol] 181 10*3/uL 150-450 [facility] Work Phone: Absolute lymphocyte counton 09-20-2021 Lymphocytes Auto (Unsp spec) [#/Vol] 1.79 10*3/uL 0.83-4.51 [facility] Work Phone: Basophil percentageon 2021 Basophils/100 WBC (Bld) 0.4 % 0-1 [facility] Work Phone: Eosinophils/100 WBC (Bld) 0.3 % 0-5 [facility] Work Phone: Neutrophils (Bld) [#/Vol] 4.1 10*3/uL 2.0-7.7 [facility] Work Phone: Neutrophils/100 WBC (Bld) 61.3 % 47-70 [facility] Work Phone: WBC (Bld) [#/Vol] 6.7 10*3/uL 4.4-11.0 [facility] Work Phone: Blood erythrocytes count (nu mber/volume)on 09-20-2021 RBC (Bld) [#/Vol] 4.32 10*6/uL 4.6-6.2 [facility] Work Phone: Blood hemoglobin measurement (mass/volume)on 09-20-2021 Hemoglobin (Bld) [Mass/Vol] 13.6 g/dL 13.0-16.5 [facility] Work Phone: [phone] Blood lymphocytes/100 leukoc yteson 09-20-2021 Lymphocytes/100 WBC (Bld) 26.8 % 19-41 [facility] Work Phone: Blood monocytes/100 leukocyt eson 09-20-2021 Monocytes/100 WBC (Bld) 10.8 % 0-10 [facility] Work Phone: Blood platelet mean volumeon 09-20-2021 Platelet mean volume (Bld) [Entitic vol] 10.7 fL 6.2-12.0 [facility] Work Phone: Determination of erythrocyte mean corpuscular volume (MCV)on 09-20-2021 MCV (RBC) [Entitic vol] 93.1 fL 80-94 [facility] Work Phone: Hematocrit Auto (Bld) [Volum e fraction]on 09-20-2021 Hematocrit (Bld) [Volume fraction] 40.2 % 40-54 [facility] Work Phone: Laboratory - Hematology and Cell countson 09-20-2021 Erythrocyte distribution width (RBC) [Entitic vol] 43.0 fL 35.1-43.9 [facility] Work Phone: Erythrocyte distribution width (RBC) [Ratio] 12.6 % 11.6-14.6 [facility] Work Phone: Immature granulocytes/100 WBC (Bld) 0.400 % 0.0-0.9 [facility] Work Phone: Comment on above: IG% - Immature Granu locytes (promyelocytes, myelocytes and metamyelocytes) > 1% indicates that a LEFT SHIFT is Present. MCH (RBC) [Entitic mass] 31.5 pg 27.0-32.0 [facility] Work Phone: Nucleated RBC/100 WBC (Bld) [Ratio] 0 % 0-5 [facility] Work Phone: MCHC Auto (RBC) [Mass/Vol]on 09-20-2021 MCHC (RBC) [Mass/Vol] 33.8 g/dL 32-36 [facility] Work Phone: Platelets bldon 09-20-2021 Platelets (Bld) [#/Vol] 170 10*3/uL 150-450 [facility] Work Phone: Absolute lymphocyte counton 09-13-2021 Lymphocytes Auto (Unsp spec) [#/Vol] 1.85 10*3/uL 0.83-4.51 [facility] Work Phone: Basophil percentageon 2021 Basophils/100 WBC (Bld) 0.6 % 0-1 [facility] Work Phone: Eosinophils/100 WBC (Bld) 0.3 % 0-5 [facility] Work Phone: Neutrophils (Bld) [#/Vol] 4.3 10*3/uL 2.0-7.7 [facility] Work Phone: Neutrophils/100 WBC (Bld) 63.1 % 47-70 [facility] Work Phone: WBC (Bld) [#/Vol] 6.7 10*3/uL 4.4-11.0 [facility]: Blood erythrocytes count (nu mber/volume)on 09-13-2021 RBC (Bld) [#/Vol] 4.63 10*6/uL 4.6-6.2 [facility] Work Phone: Blood hemoglobin measurement (mass/volume)on 09-13-2021 Hemoglobin (Bld) [Mass/Vol] 14.2 g/dL 13.0-16.5 [facility] Work Phone: Blood lymphocytes/100 leukoc yteson 09-13-2021 Lymphocytes/100 WBC (Bld) 27.5 % 19-41 [facility] Work Phone: Blood monocytes/100 leukocyt eson 09-13-2021 Monocytes/100 WBC (Bld) 8.2 % 0-10 [facility] Work Phone: Blood platelet mean volumeon 09-13-2021 Platelet mean volume (Bld) [Entitic vol] 11.0 fL 6.2-12.0 [facility] Work Phone: Determination of erythrocyte mean corpuscular volume (MCV)on 09-13-2021 MCV (RBC) [Entitic vol] 93.5 fL 80-94 [facility] Work Phone: Hematocrit Auto (Bld) [Volum e fraction]on 09-13-2021 Hematocrit (Bld) [Volume fraction] 43.3 % 40-54 [facility] Work Phone: Laboratory - Hematology and Cell countson 09-13-2021 Erythrocyte distribution width (RBC) [Entitic vol] 43.0 fL 35.1-43.9 [facility] Work Phone: Erythrocyte distribution width (RBC) [Ratio] 12.6 % 11.6-14.6 [facility] Work Phone: Immature granulocytes/100 WBC (Bld) 0.300 % 0.0-0.9 [facility] Work Phone: Comment on above: IG% - Immature Granu locytes (promyelocytes, myelocytes and metamyelocytes) > 1% indicates that a LEFT SHIFT is Present. MCH (RBC) [Entitic mass] 30.7 pg 27.0-32.0 [facility] Work Phone: Nucleated RBC/100 WBC (Bld) [Ratio] 0 % 0-5 [facility] Work Phone: MCHC Auto (RBC) [Mass/Vol]on 09-13-2021 MCHC (RBC) [Mass/Vol] 32.8 g/dL 32-36 [facility] Work Phone: Platelets bldon 09-13-2021 Platelets (Bld) [#/Vol] 188 10*3/uL 150-450 [facility] Work Phone: Absolute lymphocyte counton 09-06-2021 Lymphocytes Auto (Unsp spec) [#/Vol] 1.86 10*3/uL 0.83-4.51 [facility] Work Phone: Basophil percentageon 2021 Basophils/100 WBC (Bld) 0.7 % 0-1 [facility] Work Phone: Eosinophils/100 WBC (Bld) 0.3 % 0-5 [facility] Work Phone: Neutrophils (Bld) [#/Vol] 4.4 10*3/uL 2.0-7.7 [facility] Work Phone: Neutrophils/100 WBC (Bld) 62.6 % 47-70 [facility] Work Phone: WBC (Bld) [#/Vol] 7.0 10*3/uL 4.4-11.0 [facility] Work Phone: Blood erythrocytes count (nu mber/volume)on 09-06-2021 RBC (Bld) [#/Vol] 4.51 10*6/uL 4.6-6.2 [facility] Work Phone: Blood hemoglobin measurement (mass/volume)on 09-06-2021 Hemoglobin (Bld) [Mass/Vol] 13.8 g/dL 13.0-16.5 [facility] Work Phone: Blood lymphocytes/100 leukoc yteson 09-06-2021 Lymphocytes/100 WBC (Bld) 26.5 % 19-41 [facility] Work Phone: Blood monocytes/100 leukocyt eson 09-06-2021 Monocytes/100 WBC (Bld) 9.5 % 0-10 [facility] Work Phone: Blood platelet mean volumeon 09-06-2021 Platelet mean volume (Bld) [Entitic vol] 10.7 fL 6.2-12.0 [facility] Work Phone: Determination of erythrocyte mean corpuscular volume (MCV)on 09-06-2021 MCV (RBC) [Entitic vol] 92.9 fL 80-94 [facility] Work Phone: Hematocrit Auto (Bld) [Volum e fraction]on 09-06-2021 Hematocrit (Bld) [Volume fraction] 41.9 % 40-54 [facility] Work Phone: Laboratory - Hematology and Cell countson 09-06-2021 Erythrocyte distribution width (RBC) [Entitic vol] 43.0 fL 35.1-43.9 [facility] Work Phone: Erythrocyte distribution width (RBC) [Ratio] 12.7 % 11.6-14.6 [facility] Work Phone: Immature granulocytes/100 WBC (Bld) 0.400 % 0.0-0.9 [facility] Work Phone: Comment on above: IG% - Immature Granu locytes (promyelocytes, myelocytes and metamyelocytes) > 1% indicates that a LEFT SHIFT is Present. MCH (RBC) [Entitic mass] 30.6 pg 27.0-32.0 [facility] Work Phone: Nucleated RBC/100 WBC (Bld) [Ratio] 0 % 0-5 [facility] Work Phone: MCHC Auto (RBC) [Mass/Vol]on 09-06-2021 MCHC (RBC) [Mass/Vol] 32.9 g/dL 32-36 [facility] Work Phone: Platelets bldon 09-06-2021 Platelets (Bld) [#/Vol] 189 10*3/uL 150-450 [facility] Work Phone: [phone] Absolute lymphocyte counton 08-30-2021 Lymphocytes Auto (Unsp spec) [#/Vol] 1.44 10*3/uL 0.83-4.51 [facility] Work Phone: Basophil percentageon 2021 Basophils/100 WBC (Bld) 0.3 % 0-1 [facility] Work Phone: Eosinophils/100 WBC (Bld) 0.2 % 0-5 [facility] Work Phone: Neutrophils (Bld) [#/Vol] 9.6 10*3/uL 2.0-7.7 [facility] Work Phone: Neutrophils/100 WBC (Bld) 80.4 % 47-70 [facility] Work Phone: WBC (Bld) [#/Vol] 12.0 10*3/uL 4.4-11.0 [facility] Work Phone: Blood erythrocytes count (nu mber/volume)on 08-30-2021 RBC (Bld) [#/Vol] 4.52 10*6/uL 4.6-6.2 [facility] Work Phone: Blood hemoglobin measurement (mass/volume)on 08-30-2021 Hemoglobin (Bld) [Mass/Vol] 13.9 g/dL 13.0-16.5 [facility] Work Phone: Blood lymphocytes/100 leukoc yteson 08-30-2021 Lymphocytes/100 WBC (Bld) 12.0 % 19-41 [facility] Work Phone: Blood monocytes/100 leukocyt eson 08-30-2021 Monocytes/100 WBC (Bld) 6.7 % 0-10 [facility] Work Phone: Blood platelet mean volumeon 08-30-2021 Platelet mean volume (Bld) [Entitic vol] 11.3 fL 6.2-12.0 [facility] Work Phone: Determination of erythrocyte mean corpuscular volume (MCV)on 08-30-2021 MCV (RBC) [Entitic vol] 92.7 fL 80-94 [facility] Work Phone: Hematocrit Auto (Bld) [Volum e fraction]on 08-30-2021 Hematocrit (Bld) [Volume fraction] 41.9 % 40-54 [facility] Work Phone: Laboratory - Hematology and Cell countson 08-30-2021 Erythrocyte distribution width (RBC) [Entitic vol] 42.6 fL 35.1-43.9 [facility] Work Phone: Erythrocyte distribution width (RBC) [Ratio] 12.6 % 11.6-14.6 [facility] Work Phone: Immature granulocytes/100 WBC (Bld) 0.400 % 0.0-0.9 [facility] Work Phone: Comment on above: IG% - Immature Granu locytes (promyelocytes, myelocytes and metamyelocytes) > 1% indicates that a LEFT SHIFT is Present. MCH (RBC) [Entitic mass] 30.8 pg 27.0-32.0 [facility] Work Phone: Nucleated RBC/100 WBC (Bld) [Ratio] 0 % 0-5 [facility] Work Phone: MCHC Auto (RBC) [Mass/Vol]on 08-30-2021 MCHC (RBC) [Mass/Vol] 33.2 g/dL 32-36 [facility] Work Phone: Platelets bldon 08-30-2021 Platelets (Bld) [#/Vol] 200 10*3/uL 150-450 [facility] Work Phone: [phone] Absolute lymphocyte counton 08-23-2021 Lymphocytes Auto (Unsp spec) [#/Vol] 1.91 10*3/uL 0.83-4.51 [facility] Work Phone: [phone] Basophil percentageon 2021 Basophils/100 WBC (Bld) 0.4 % 0-1 [facility] Work Phone: [phone] Eosinophils/100 WBC (Bld) 0.3 % 0-5 [facility] Work Phone: [phone] Neutrophils (Bld) [#/Vol] 4.2 10*3/uL 2.0-7.7 [facility] Work Phone: Neutrophils/100 WBC (Bld) 62.3 % 47-70 [facility] Work Phone: [phone] WBC (Bld) [#/Vol] 6.8 10*3/uL 4.4-11.0 [facility] Work Phone: Blood erythrocytes count (nu mber/volume)on 08-23-2021 RBC (Bld) [#/Vol] 4.46 10*6/uL 4.6-6.2 [facility] Work Phone: Blood hemoglobin measurement (mass/volume)on 08-23-2021 Hemoglobin (Bld) [Mass/Vol] 13.7 g/dL 13.0-16.5 [facility] Work Phone: [phone] Blood lymphocytes/100 leukoc yteson 08-23-2021 Lymphocytes/100 WBC (Bld) 28.3 % 19-41 [facility] Work Phone: Blood monocytes/100 leukocyt eson 08-23-2021 Monocytes/100 WBC (Bld) 8.1 % 0-10 [facility] Work Phone: Blood platelet mean volumeon 08-23-2021 Platelet mean volume (Bld) [Entitic vol] 10.6 fL 6.2-12.0 [facility] Work Phone: Determination of erythrocyte mean corpuscular volume (MCV)on 08-23-2021 MCV (RBC) [Entitic vol] 93.0 fL 80-94 [facility] Work Phone: Hematocrit Auto (Bld) [Volum e fraction]on 08-23-2021 Hematocrit (Bld) [Volume fraction] 41.5 % 40-54 [facility] Work Phone: Laboratory - Hematology and Cell countson 08-23-2021 Erythrocyte distribution width (RBC) [Entitic vol] 42.4 fL 35.1-43.9 [facility] Work Phone: Erythrocyte distribution width (RBC) [Ratio] 12.5 % 11.6-14.6 [facility] Work Phone: Immature granulocytes/100 WBC (Bld) 0.600 % 0.0-0.9 [facility] Work Phone: Comment on above: IG% - Immature Granu locytes (promyelocytes, myelocytes and metamyelocytes) > 1% indicates that a LEFT SHIFT is Present. MCH (RBC) [Entitic mass] 30.7 pg 27.0-32.0 [facility] Work Phone: Nucleated RBC/100 WBC (Bld) [Ratio] 0 % 0-5 [facility] Work Phone: MCHC Auto (RBC) [Mass/Vol]on 08-23-2021 MCHC (RBC) [Mass/Vol] 33.0 g/dL 32-36 [facility] Work Phone: Platelets bldon 08-23-2021 Platelets (Bld) [#/Vol] 198 10*3/uL 150-450 [facility] Work Phone: Basophil percentageon 2021 Basophil percentage 0 SEEN /hpf 0-5 [facility] Work Phone: Bilirubin Test strip Ql (U)o n 08-18-2021 Bilirubin Ql (U) Negative Negative [facility] Work Phone: Culture, urineon 08-18-2021 Bacteria identified Cx Nom (U) Culture exhibits no growth. [facility] Work Phone: Ketones Test strip Ql (U)on 08-18-2021 Ketones Ql (U) Negative Negative [facility] Work Phone: Mucus LM Ql (Urine sed)on Mucus Ql (Urine sed) 0 SEEN /hpf [facility] Work Phone: Nitrite Test strip Ql (U)on 08-18-2021 Nitrite Ql (U) Negative Negative [facility] Work Phone: Protein Test strip Ql (U)on 08-18-2021 Protein Ql (U) Negative Negative [facility] Work Phone: Squamous epithelial cells de tection in urine sediment by light microscopyon 08-18-2021 Epithelial cells.squamous LM Ql (Urine sed) 0 SEEN /hpf 0-5 [facility] Work Phone: Urine blood detectionon --2021 RBC Ql (U) Negative Negative [facility] Work Phone: RBC Ql (U) 0 SEEN /hpf 0-5 [facility] Work Phone: Urine clarityon 08-18-2021 Clarity (U) Clear Clear [facility] Work Phone: Urine color determinationon 08-18-2021 Color (U) Yellow Yellow [facility] Work Phone: Urine glucose detectionon Glucose Ql (U) Normal mg/dl Normal [facility] Work Phone: Urine leukocyte esterase det ection by dipstickon 08-18-2021 Leukocyte esterase Test strip Ql (U) Negative Negative [facility] Work Phone: Urine pHon 08-18-2021 pH (U) 7.0 [pH] 5.0 - 8.0 [facility] Work Phone: Urine sediment bacteria coun t by microscopy (number/high power field)on 08-18-2021 Bacteria LM.HPF (Urine sed) [#/Area] 0 /[HPF] None Seen [facility] Work Phone: Urine specific gravity measu rementon 08-18-2021 Specific gravity (U) [Rel density] 1.010 1.002-1.030 [facility] Work Phone: Urobilinogen Auto test strip Ql (U)on 08-18-2021 Urobilinogen Ql (U) 4 mg/dl Normal [facility] Work Phone: Absolute lymphocyte counton 08-16-2021 Lymphocytes Auto (Unsp spec) [#/Vol] 1.71 10*3/uL 0.83-4.51 [facility] Work Phone: Basophil percentageon 2021 Basophils/100 WBC (Bld) 0.3 % 0-1 [facility] Work Phone: [phone] Eosinophils/100 WBC (Bld) 0.2 % 0-5 [facility] Work Phone: Neutrophils (Bld) [#/Vol] 8.6 10*3/uL 2.0-7.7 [facility] Work Phone: Neutrophils/100 WBC (Bld) 76.8 % 47-70 [facility] Work Phone: WBC (Bld) [#/Vol] 11.2 10*3/uL 4.4-11.0 [facility] Work Phone: Blood erythrocytes count (nu mber/volume)on 08-16-2021 RBC (Bld) [#/Vol] 4.42 10*6/uL 4.6-6.2 [facility] Work Phone: Blood hemoglobin measurement (mass/volume)on 08-16-2021 Hemoglobin (Bld) [Mass/Vol] 13.4 g/dL 13.0-16.5 [facility] Work Phone: Blood lymphocytes/100 leukoc yteson 08-16-2021 Lymphocytes/100 WBC (Bld) 15.2 % 19-41 [facility] Work Phone: Blood monocytes/100 leukocyt eson 08-16-2021 Monocytes/100 WBC (Bld) 7.1 % 0-10 [facility] Work Phone: Blood platelet mean volumeon 08-16-2021 Platelet mean volume (Bld) [Entitic vol] 11.0 fL 6.2-12.0 [facility] Work Phone: Determination of erythrocyte mean corpuscular volume (MCV)on 08-16-2021 MCV (RBC) [Entitic vol] 91.9 fL 80-94 [facility] Work Phone: Hematocrit Auto (Bld) [Volum e fraction]on 08-16-2021 Hematocrit (Bld) [Volume fraction] 40.6 % 40-54 [facility] Work Phone: Laboratory - Hematology and Cell countson 08-16-2021 Erythrocyte distribution width (RBC) [Entitic vol] 43.0 fL 35.1-43.9 [facility] Work Phone: Erythrocyte distribution width (RBC) [Ratio] 12.7 % 11.6-14.6 [facility] Work Phone: Immature granulocytes/100 WBC (Bld) 0.400 % 0.0-0.9 [facility] Work Phone: Comment on above: IG% - Immature Granu locytes (promyelocytes, myelocytes and metamyelocytes) > 1% indicates that a LEFT SHIFT is Present. MCH (RBC) [Entitic mass] 30.3 pg 27.0-32.0 [facility] Work Phone: Nucleated RBC/100 WBC (Bld) [Ratio] 0 % 0-5 [facility] Work Phone: MCHC Auto (RBC) [Mass/Vol]on 08-16-2021 MCHC (RBC) [Mass/Vol] 33.0 g/dL 32-36 [facility] Work Phone: Platelets bldon 08-16-2021 Platelets (Bld) [#/Vol] 187 10*3/uL 150-450 [facility] Work Phone: Absolute lymphocyte counton 08-09-2021 Lymphocytes Auto (Unsp spec) [#/Vol] 1.78 10*3/uL 0.83-4.51 [facility] Work Phone: Basophil percentageon 2021 Basophils/100 WBC (Bld) 0.5 % 0-1 [facility] Work Phone: Eosinophils/100 WBC (Bld) 0.1 % 0-5 [facility] Work Phone: Neutrophils (Bld) [#/Vol] 6.0 10*3/uL 2.0-7.7 [facility] Work Phone: Neutrophils/100 WBC (Bld) 71.3 % 47-70 [facility] Work Phone: WBC (Bld) [#/Vol] 8.4 10*3/uL 4.4-11.0 [facility] Work Phone: Blood erythrocytes count (nu mber/volume)on 08-09-2021 RBC (Bld) [#/Vol] 4.37 10*6/uL 4.6-6.2 [facility] Work Phone: Blood hemoglobin measurement (mass/volume)on 08-09-2021 Hemoglobin (Bld) [Mass/Vol] 13.5 g/dL 13.0-16.5 [facility] Work Phone: Blood lymphocytes/100 leukoc yteson 08-09-2021 Lymphocytes/100 WBC (Bld) 21.2 % 19-41 [facility] Work Phone: Blood monocytes/100 leukocyt eson 08-09-2021 Monocytes/100 WBC (Bld) 6.5 % 0-10 [facility] Work Phone: Blood platelet mean volumeon 08-09-2021 Platelet mean volume (Bld) [Entitic vol] 11.1 fL 6.2-12.0 [facility] Work Phone: Determination of erythrocyte mean corpuscular volume (MCV)on 08-09-2021 MCV (RBC) [Entitic vol] 91.3 fL 80-94 [facility] Work Phone: Hematocrit Auto (Bld) [Volum e fraction]on 08-09-2021 Hematocrit (Bld) [Volume fraction] 39.9 % 40-54 [facility] Work Phone: Laboratory - Hematology and Cell countson 08-09-2021 Erythrocyte distribution width (RBC) [Entitic vol] 41.4 fL 35.1-43.9 [facility] Work Phone: Erythrocyte distribution width (RBC) [Ratio] 12.5 % 11.6-14.6 [facility] Work Phone: Immature granulocytes/100 WBC (Bld) 0.400 % 0.0-0.9 [facility] Work Phone: Comment on above: IG% - Immature Granu locytes (promyelocytes, myelocytes and metamyelocytes) > 1% indicates that a LEFT SHIFT is Present. MCH (RBC) [Entitic mass] 30.9 pg 27.0-32.0 [facility] Work Phone: Nucleated RBC/100 WBC (Bld) [Ratio] 0 % 0-5 [facility] Work Phone: MCHC Auto (RBC) [Mass/Vol]on 08-09-2021 MCHC (RBC) [Mass/Vol] 33.8 g/dL 32-36 [facility] Work Phone: Platelets bldon 08-09-2021 Platelets (Bld) [#/Vol] 177 10*3/uL 150-450 [facility] Work Phone: Absolute lymphocyte counton 08-02-2021 Lymphocytes Auto (Unsp spec) [#/Vol] 1.69 10*3/uL 0.83-4.51 [facility] Work Phone: [phone] Basophil percentageon 2021 Basophils/100 WBC (Bld) 0.3 % 0-1 [facility] Work Phone: Eosinophils/100 WBC (Bld) 0.3 % 0-5 [facility] Work Phone: Neutrophils (Bld) [#/Vol] 3.8 10*3/uL 2.0-7.7 [facility] Work Phone: Neutrophils/100 WBC (Bld) 61.9 % 47-70 [facility] Work Phone: WBC (Bld) [#/Vol] 6.1 10*3/uL 4.4-11.0 [facility] Work Phone: Blood erythrocytes count (nu mber/volume)on 08-02-2021 RBC (Bld) [#/Vol] 4.54 10*6/uL 4.6-6.2 [facility] Work Phone: Blood hemoglobin measurement (mass/volume)on 08-02-2021 Hemoglobin (Bld) [Mass/Vol] 13.8 g/dL 13.0-16.5 [facility] Work Phone: Blood lymphocytes/100 leukoc yteson 08-02-2021 Lymphocytes/100 WBC (Bld) 27.7 % 19-41 [facility] Work Phone: Blood monocytes/100 leukocyt eson 08-02-2021 Monocytes/100 WBC (Bld) 9.5 % 0-10 [facility] Work Phone: Blood platelet mean volumeon 08-02-2021 Platelet mean volume (Bld) [Entitic vol] 11.2 fL 6.2-12.0 [facility] Work Phone: Determination of erythrocyte mean corpuscular volume (MCV)on 08-02-2021 MCV (RBC) [Entitic vol] 90.1 fL 80-94 [facility] Work Phone: Hematocrit Auto (Bld) [Volum e fraction]on 08-02-2021 Hematocrit (Bld) [Volume fraction] 40.9 % 40-54 [facility] Work Phone: Laboratory - Hematology and Cell countson 08-02-2021 Erythrocyte distribution width (RBC) [Entitic vol] 40.3 fL 35.1-43.9 [facility] Work Phone: Erythrocyte distribution width (RBC) [Ratio] 12.4 % 11.6-14.6 [facility] Work Phone: Immature granulocytes/100 WBC (Bld) 0.300 % 0.0-0.9 [facility] Work Phone: Comment on above: IG% - Immature Granu locytes (promyelocytes, myelocytes and metamyelocytes) > 1% indicates that a LEFT SHIFT is Present. MCH (RBC) [Entitic mass] 30.4 pg 27.0-32.0 [facility] Work Phone: Nucleated RBC/100 WBC (Bld) [Ratio] 0 % 0-5 [facility] Work Phone: MCHC Auto (RBC) [Mass/Vol]on 08-02-2021 MCHC (RBC) [Mass/Vol] 33.7 g/dL 32-36 [facility] Work Phone: Platelets bldon 08-02-2021 Platelets (Bld) [#/Vol] 192 10*3/uL 150-450 [facility] Work Phone: [phone] Absolute lymphocyte counton 07-26-2021 Lymphocytes Auto (Unsp spec) [#/Vol] 1.83 10*3/uL 0.83-4.51 [facility] Work Phone: Basophil percentageon 2021 Basophils/100 WBC (Bld) 0.5 % 0-1 [facility] Work Phone: [phone] Eosinophils/100 WBC (Bld) 0.3 % 0-5 [facility] Work Phone: [phone] Neutrophils (Bld) [#/Vol] 3.3 10*3/uL 2.0-7.7 [facility] Work Phone: [phone] Neutrophils/100 WBC (Bld) 58.1 % 47-70 [facility] Work Phone: [phone] WBC (Bld) [#/Vol] 5.7 10*3/uL 4.4-11.0 [facility] Work Phone: Blood erythrocytes count (nu mber/volume)on 07-26-2021 RBC (Bld) [#/Vol] 4.21 10*6/uL 4.6-6.2 [facility] Work Phone: Blood hemoglobin measurement (mass/volume)on 07-26-2021 Hemoglobin (Bld) [Mass/Vol] 12.9 g/dL 13.0-16.5 [facility] Work Phone: Blood lymphocytes/100 leukoc yteson 07-26-2021 Lymphocytes/100 WBC (Bld) 31.9 % 19-41 [facility] Work Phone: Blood monocytes/100 leukocyt eson 07-26-2021 Monocytes/100 WBC (Bld) 8.9 % 0-10 [facility] Work Phone: Blood platelet mean volumeon 07-26-2021 Platelet mean volume (Bld) [Entitic vol] 11.5 fL 6.2-12.0 [facility] Work Phone: Determination of erythrocyte mean corpuscular volume (MCV)on 07-26-2021 MCV (RBC) [Entitic vol] 90.7 fL 80-94 [facility] Work Phone: Hematocrit Auto (Bld) [Volum e fraction]on 07-26-2021 Hematocrit (Bld) [Volume fraction] 38.2 % 40-54 [facility] Work Phone: Laboratory - Hematology and Cell countson 07-26-2021 Erythrocyte distribution width (RBC) [Entitic vol] 41.2 fL 35.1-43.9 [facility] Work Phone: Erythrocyte distribution width (RBC) [Ratio] 12.5 % 11.6-14.6 [facility] Work Phone: Immature granulocytes/100 WBC (Bld) 0.300 % 0.0-0.9 [facility] Work Phone: Comment on above: IG% - Immature Granu locytes (promyelocytes, myelocytes and metamyelocytes) > 1% indicates that a LEFT SHIFT is Present. MCH (RBC) [Entitic mass] 30.6 pg 27.0-32.0 [facility] Work Phone: Nucleated RBC/100 WBC (Bld) [Ratio] 0 % 0-5 [facility] Work Phone: MCHC Auto (RBC) [Mass/Vol]on 07-26-2021 MCHC (RBC) [Mass/Vol] 33.8 g/dL 32-36 [facility] Work Phone: Platelets bldon 07-26-2021 Platelets (Bld) [#/Vol] 180 10*3/uL 150-450 [facility] Work Phone: Absolute lymphocyte counton 07-19-2021 Lymphocytes Auto (Unsp spec) [#/Vol] 2.04 10*3/uL 0.83-4.51 [facility] Work Phone: Basophil percentageon 2021 Basophils/100 WBC (Bld) 0.3 % 0-1 [facility] Work Phone: Eosinophils/100 WBC (Bld) 0.4 % 0-5 [facility] Work Phone: Neutrophils (Bld) [#/Vol] 4.0 10*3/uL 2.0-7.7 [facility] Work Phone: Neutrophils/100 WBC (Bld) 59.2 % 47-70 [facility] Work Phone: WBC (Bld) [#/Vol] 6.7 10*3/uL 4.4-11.0 [facility] Work Phone: Blood erythrocytes count (nu mber/volume)on 07-19-2021 RBC (Bld) [#/Vol] 4.53 10*6/uL 4.6-6.2 [facility] Work Phone: Blood hemoglobin measurement (mass/volume)on 07-19-2021 Hemoglobin (Bld) [Mass/Vol] 14.1 g/dL 13.0-16.5 [facility] Work Phone: Blood lymphocytes/100 leukoc yteson 07-19-2021 Lymphocytes/100 WBC (Bld) 30.5 % 19-41 [facility] Work Phone: Blood monocytes/100 leukocyt eson 07-19-2021 Monocytes/100 WBC (Bld) 9.0 % 0-10 [facility] Work Phone: Blood platelet mean volumeon 07-19-2021 Platelet mean volume (Bld) [Entitic vol] 11.4 fL 6.2-12.0 [facility] Work Phone: Determination of erythrocyte mean corpuscular volume (MCV)on 07-19-2021 MCV (RBC) [Entitic vol] 90.5 fL 80-94 [facility] Work Phone: Hematocrit Auto (Bld) [Volum e fraction]on 07-19-2021 Hematocrit (Bld) [Volume fraction] 41.0 % 40-54 [facility] Work Phone: Laboratory - Hematology and Cell countson 07-19-2021 Erythrocyte distribution width (RBC) [Entitic vol] 41.1 fL 35.1-43.9 [facility] Work Phone: Erythrocyte distribution width (RBC) [Ratio] 12.5 % 11.6-14.6 [facility] Work Phone: Immature granulocytes/100 WBC (Bld) 0.600 % 0.0-0.9 [facility] Work Phone: Comment on above: IG% - Immature Granu locytes (promyelocytes, myelocytes and metamyelocytes) > 1% indicates that a LEFT SHIFT is Present. MCH (RBC) [Entitic mass] 31.1 pg 27.0-32.0 [facility] Work Phone: Nucleated RBC/100 WBC (Bld) [Ratio] 0 % 0-5 [facility] Work Phone: MCHC Auto (RBC) [Mass/Vol]on 07-19-2021 MCHC (RBC) [Mass/Vol] 34.4 g/dL 32-36 [facility] Work Phone: Platelets bldon 07-19-2021 Platelets (Bld) [#/Vol] 193 10*3/uL 150-450 [facility] Work Phone: Absolute lymphocyte counton 07-12-2021 Lymphocytes Auto (Unsp spec) [#/Vol] 1.42 10*3/uL 0.83-4.51 [facility] Work Phone: Basophil percentageon 2021 Basophils/100 WBC (Bld) 0.6 % 0-1 [facility] Work Phone: Eosinophils/100 WBC (Bld) 0.3 % 0-5 [facility] Work Phone: Neutrophils (Bld) [#/Vol] 4.7 10*3/uL 2.0-7.7 [facility] Work Phone: Neutrophils/100 WBC (Bld) 67.3 % 47-70 [facility] Work Phone: WBC (Bld) [#/Vol] 7.0 10*3/uL 4.4-11.0 [facility] Work Phone: Blood erythrocytes count (nu mber/volume)on 07-12-2021 RBC (Bld) [#/Vol] 4.61 10*6/uL 4.6-6.2 [facility] Work Phone: Blood hemoglobin measurement (mass/volume)on 07-12-2021 Hemoglobin (Bld) [Mass/Vol] 14.4 g/dL 13.0-16.5 [facility] Work Phone: Blood lymphocytes/100 leukoc yteson 07-12-2021 Lymphocytes/100 WBC (Bld) 20.4 % 19-41 [facility] Work Phone: Blood monocytes/100 leukocyt eson 07-12-2021 Monocytes/100 WBC (Bld) 11.1 % 0-10 [facility] Work Phone: Blood platelet mean volumeon 07-12-2021 Platelet mean volume (Bld) [Entitic vol] 11.2 fL 6.2-12.0 [facility] Work Phone: Determination of erythrocyte mean corpuscular volume (MCV)on 07-12-2021 MCV (RBC) [Entitic vol] 91.1 fL 80-94 [facility] Work Phone: Hematocrit Auto (Bld) [Volum e fraction]on 07-12-2021 Hematocrit (Bld) [Volume fraction] 42.0 % 40-54 [facility] Work Phone: Laboratory - Hematology and Cell countson 07-12-2021 Erythrocyte distribution width (RBC) [Entitic vol] 41.4 fL 35.1-43.9 [facility] Work Phone: Erythrocyte distribution width (RBC) [Ratio] 12.6 % 11.6-14.6 [facility] Work Phone: Immature granulocytes/100 WBC (Bld) 0.300 % 0.0-0.9 [facility] Work Phone: Comment on above: IG% - Immature Granu locytes (promyelocytes, myelocytes and metamyelocytes) > 1% indicates that a LEFT SHIFT is Present. MCH (RBC) [Entitic mass] 31.2 pg 27.0-32.0 [facility] Work Phone: Nucleated RBC/100 WBC (Bld) [Ratio] 0 % 0-5 [facility] Work Phone: MCHC Auto (RBC) [Mass/Vol]on 07-12-2021 MCHC (RBC) [Mass/Vol] 34.3 g/dL 32-36 [facility] Work Phone: Platelets bldon 07-12-2021 Platelets (Bld) [#/Vol] 184 10*3/uL 150-450 [facility] Work Phone: Absolute lymphocyte counton 07-05-2021 Lymphocytes Auto (Unsp spec) [#/Vol] 1.55 10*3/uL 0.83-4.51 [facility] Work Phone: Basophil percentageon 2021 Basophils/100 WBC (Bld) 0.4 % 0-1 [facility] Work Phone: Cholesterol [Mass/Vol] 148 mg/dL <200 [facility] Work Phone: Comment on above: <200 mg/dL Desirable 200-240 mg/dL Borderline >240 mg/dL High Risk Eosinophils/100 WBC (Bld) 0.3 % 0-5 [facility] Work Phone: Neutrophils (Bld) [#/Vol] 5.5 10*3/uL 2.0-7.7 [facility] Work Phone: Neutrophils/100 WBC (Bld) 70.9 % 47-70 [facility] Work Phone: Triglyceride [Mass/Vol] 201 mg/dL <199 [facility] Work Phone: Comment on above: The drugs N-Acetylcy steine and Metamizole may falsely depress this assay.Serum Triglycerides Reference Interval Normal <150 mg/dL Borderline high 150 - 199 mg/dL High 200 - 499 mg/dL Very High > or = 500 mg/dL WBC (Bld) [#/Vol] 7.8 10*3/uL 4.4-11.0 [facility] Work Phone: Blood erythrocytes count (nu mber/volume)on 07-05-2021 RBC (Bld) [#/Vol] 4.46 10*6/uL 4.6-6.2 [facility] Work Phone: Blood hemoglobin measurement (mass/volume)on 07-05-2021 Hemoglobin (Bld) [Mass/Vol] 13.4 g/dL 13.0-16.5 [facility] Work Phone: Blood lymphocytes/100 leukoc yteson 07-05-2021 Lymphocytes/100 WBC (Bld) 20.0 % 19-41 [facility] Work Phone: Blood monocytes/100 leukocyt eson 07-05-2021 Monocytes/100 WBC (Bld) 8.1 % 0-10 [facility] Work Phone: Blood platelet mean volumeon 07-05-2021 Platelet mean volume (Bld) [Entitic vol] 11.7 fL 6.2-12.0 [facility] Work Phone: Determination of erythrocyte mean corpuscular volume (MCV)on 07-05-2021 MCV (RBC) [Entitic vol] 91.0 fL 80-94 [facility] Work Phone: Hematocrit Auto (Bld) [Volum e fraction]on 07-05-2021 Hematocrit (Bld) [Volume fraction] 40.6 % 40-54 [facility] Work Phone: Laboratory - Hematology and Cell countson 07-05-2021 Erythrocyte distribution width (RBC) [Entitic vol] 41.9 fL 35.1-43.9 [facility] Work Phone: Erythrocyte distribution width (RBC) [Ratio] 12.8 % 11.6-14.6 [facility] Work Phone: Immature granulocytes/100 WBC (Bld) 0.300 % 0.0-0.9 [facility] Work Phone: Comment on above: IG% - Immature Granu locytes (promyelocytes, myelocytes and metamyelocytes) > 1% indicates that a LEFT SHIFT is Present. MCH (RBC) [Entitic mass] 30.0 pg 27.0-32.0 [facility] Work Phone: Nucleated RBC/100 WBC (Bld) [Ratio] 0 % 0-5 [facility] Work Phone: MCHC Auto (RBC) [Mass/Vol]on 07-05-2021 MCHC (RBC) [Mass/Vol] 33.0 g/dL 32-36 [facility] Work Phone: Platelets bldon 07-05-2021 Platelets (Bld) [#/Vol] 186 10*3/uL 150-450 [facility] Work Phone: Serum or plasma cholesterol in HDL measurement (mass/volume)on 07-05-2021 Cholesterol in HDL [Mass/Vol] 30 mg/dL >40 [facility] Work Phone: Comment on above: The drugs N-Acetylcy steine and Metamizole may falsely depress this assay. Reference Range HDL <40 mg/dL Low HDL Cholesterol HDL >or= 60 mg/dL High HDL Cholesterol Serum or plasma cholesterol in VLDL measurement (mass/volume)on 07-05-2021 Cholesterol in VLDL [Mass/Vol] 40 mg/dL 5-40 [facility] Work Phone: Serum or plasma low density lipoprotein (LDL) cholesterol measurement (mass/volume)on 07-05-2021 Cholesterol in LDL [Mass/Vol] 78 mg/dL 0-130 [facility] Work Phone: Absolute lymphocyte counton 06-28-2021 Lymphocytes Auto (Unsp spec) [#/Vol] 2.01 10*3/uL 0.83-4.51 [facility] Work Phone: Basophil percentageon 2021 Basophils/100 WBC (Bld) 0.5 % 0-1 [facility] Work Phone: Eosinophils/100 WBC (Bld) 0.3 % 0-5 [facility] Work Phone: Neutrophils (Bld) [#/Vol] 3.3 10*3/uL 2.0-7.7 [facility] Work Phone: Neutrophils/100 WBC (Bld) 55.5 % 47-70 [facility] Work Phone: WBC (Bld) [#/Vol] 6.0 10*3/uL 4.4-11.0 [facility] Work Phone: Blood erythrocytes count (nu mber/volume)on 06-28-2021 RBC (Bld) [#/Vol] 4.32 10*6/uL 4.6-6.2 [facility] Work Phone: Blood hemoglobin measurement (mass/volume)on 06-28-2021 Hemoglobin (Bld) [Mass/Vol] 13.5 g/dL 13.0-16.5 [facility] Work Phone: Blood lymphocytes/100 leukoc yteson 06-28-2021 Lymphocytes/100 WBC (Bld) 33.5 % 19-41 [facility] Work Phone: Blood monocytes/100 leukocyt eson 06-28-2021 Monocytes/100 WBC (Bld) 10.0 % 0-10 [facility] Work Phone: Blood platelet mean volumeon 06-28-2021 Platelet mean volume (Bld) [Entitic vol] 11.8 fL 6.2-12.0 [facility] Work Phone: Determination of erythrocyte mean corpuscular volume (MCV)on 06-28-2021 MCV (RBC) [Entitic vol] 89.8 fL 80-94 [facility] Work Phone: Hematocrit Auto (Bld) [Volum e fraction]on 06-28-2021 Hematocrit (Bld) [Volume fraction] 38.8 % 40-54 [facility] Work Phone: Laboratory - Hematology and Cell countson 06-28-2021 Erythrocyte distribution width (RBC) [Entitic vol] 40.6 fL 35.1-43.9 [facility] Work Phone: Erythrocyte distribution width (RBC) [Ratio] 12.5 % 11.6-14.6 [facility] Work Phone: Immature granulocytes/100 WBC (Bld) 0.200 % 0.0-0.9 [facility] Work Phone: Comment on above: IG% - Immature Granu locytes (promyelocytes, myelocytes and metamyelocytes) > 1% indicates that a LEFT SHIFT is Present. MCH (RBC) [Entitic mass] 31.3 pg 27.0-32.0 [facility] Work Phone: Nucleated RBC/100 WBC (Bld) [Ratio] 0 % 0-5 [facility] Work Phone: MCHC Auto (RBC) [Mass/Vol]on 06-28-2021 MCHC (RBC) [Mass/Vol] 34.8 g/dL 32-36 [facility] Work Phone: Platelets bldon 06-28-2021 Platelets (Bld) [#/Vol] 185 10*3/uL 150-450 [facility] Work Phone: Absolute lymphocyte counton 06-21-2021 Lymphocytes Auto (Unsp spec) [#/Vol] 1.78 10*3/uL 0.83-4.51 [facility] Work Phone: Basophil percentageon 2021 Basophils/100 WBC (Bld) 0.3 % 0-1 [facility] Work Phone: [phone] Eosinophils/100 WBC (Bld) 0.4 % 0-5 [facility] Work Phone: Neutrophils (Bld) [#/Vol] 4.2 10*3/uL 2.0-7.7 [facility] Work Phone: Neutrophils/100 WBC (Bld) 62.7 % 47-70 [facility] Work Phone: WBC (Bld) [#/Vol] 6.8 10*3/uL 4.4-11.0 [facility] Work Phone: Blood erythrocytes count (nu mber/volume)on 06-21-2021 RBC (Bld) [#/Vol] 4.21 10*6/uL 4.6-6.2 [facility] Work Phone: Blood hemoglobin measurement (mass/volume)on 06-21-2021 Hemoglobin (Bld) [Mass/Vol] 13.3 g/dL 13.0-16.5 [facility] Work Phone: [phone] Blood lymphocytes/100 leukoc yteson 06-21-2021 Lymphocytes/100 WBC (Bld) 26.3 % 19-41 [facility] Work Phone: Blood monocytes/100 leukocyt eson 06-21-2021 Monocytes/100 WBC (Bld) 9.9 % 0-10 [facility] Work Phone: Blood platelet mean volumeon 06-21-2021 Platelet mean volume (Bld) [Entitic vol] 11.5 fL 6.2-12.0 [facility] Work Phone: Determination of erythrocyte mean corpuscular volume (MCV)on 06-21-2021 MCV (RBC) [Entitic vol] 91.0 fL 80-94 [facility] Work Phone: Hematocrit Auto (Bld) [Volum e fraction]on 06-21-2021 Hematocrit (Bld) [Volume fraction] 38.3 % 40-54 [facility] Work Phone: Laboratory - Hematology and Cell countson 06-21-2021 Erythrocyte distribution width (RBC) [Entitic vol] 40.2 fL 35.1-43.9 [facility] Work Phone: Erythrocyte distribution width (RBC) [Ratio] 12.2 % 11.6-14.6 [facility] Work Phone: Immature granulocytes/100 WBC (Bld) 0.400 % 0.0-0.9 [facility] Work Phone: Comment on above: IG% - Immature Granu locytes (promyelocytes, myelocytes and metamyelocytes) > 1% indicates that a LEFT SHIFT is Present. MCH (RBC) [Entitic mass] 31.6 pg 27.0-32.0 [facility] Work Phone: Nucleated RBC/100 WBC (Bld) [Ratio] 0 % 0-5 [facility] Work Phone: MCHC Auto (RBC) [Mass/Vol]on 06-21-2021 MCHC (RBC) [Mass/Vol] 34.7 g/dL 32-36 [facility] Work Phone: Platelets bldon 06-21-2021 Platelets (Bld) [#/Vol] 217 10*3/uL 150-450 [facility] Work Phone: Absolute lymphocyte counton 06-14-2021 Lymphocytes Auto (Unsp spec) [#/Vol] 1.41 10*3/uL 0.83-4.51 [facility] Work Phone: Basophil percentageon 2021 Basophils/100 WBC (Bld) 0.4 % 0-1 [facility] Work Phone: Chloride [Moles/Vol] 106 mmol/L 98-107 [facility] Work Phone: [phone] Eosinophils/100 WBC (Bld) 0.6 % 0-5 [facility] Work Phone: [phone] Glucose [Mass/Vol] 121 mg/dL 74-106 [facility] Work Phone: Comment on above: Fasting Glucose resu lt from 100 to 125 mg/dL suggests IMPAIRED HOMEOSTASIS per A.D.A. criteria. Neutrophils (Bld) [#/Vol] 4.8 10*3/uL 2.0-7.7 [facility] Work Phone: [phone] Neutrophils/100 WBC (Bld) 69.9 % 47-70 [facility] Work Phone: Potassium [Moles/Vol] 3.7 mmol/L 3.5-5.1 [facility] Work Phone: Sodium [Moles/Vol] 140 mmol/L 136-145 [facility] Work Phone: [phone] WBC (Bld) [#/Vol] 6.8 10*3/uL 4.4-11.0 [facility] Work Phone: Blood erythrocytes count (nu mber/volume)on 06-14-2021 RBC (Bld) [#/Vol] 4.78 10*6/uL 4.6-6.2 [facility] Work Phone: Blood hemoglobin measurement (mass/volume)on 06-14-2021 Hemoglobin (Bld) [Mass/Vol] 14.9 g/dL 13.0-16.5 [facility] Work Phone: [phone] Blood lymphocytes/100 leukoc yteson 06-14-2021 Lymphocytes/100 WBC (Bld) 20.8 % 19-41 [facility] Work Phone: [phone] Blood monocytes/100 leukocyt eson 06-14-2021 Monocytes/100 WBC (Bld) 7.7 % 0-10 [facility] Work Phone: Blood platelet mean volumeon 06-14-2021 Platelet mean volume (Bld) [Entitic vol] 11.5 fL 6.2-12.0 [facility] Work Phone: Determination of erythrocyte mean corpuscular volume (MCV)on 06-14-2021 MCV (RBC) [Entitic vol] 89.5 fL 80-94 [facility] Work Phone: Hematocrit Auto (Bld) [Volum e fraction]on 06-14-2021 Hematocrit (Bld) [Volume fraction] 42.8 % 40-54 [facility] Work Phone: Laboratory - Chemistry and C hemistry - challengeon 06-14-2021 CO2 [Moles/Vol] 27.0 mmol/L 21.0-32.0 [facility] Work Phone: Urea nitrogen/Creatinine [Mass ratio] 35.0 mg/mg 10-20 [facility] Work Phone: Laboratory - Hematology and Cell countson 06-14-2021 Erythrocyte distribution width (RBC) [Entitic vol] 39.3 fL 35.1-43.9 [facility] Work Phone: Erythrocyte distribution width (RBC) [Ratio] 12.0 % 11.6-14.6 [facility] Work Phone: Immature granulocytes/100 WBC (Bld) 0.600 % 0.0-0.9 [facility] Work Phone: Comment on above: IG% - Immature Granu locytes (promyelocytes, myelocytes and metamyelocytes) > 1% indicates that a LEFT SHIFT is Present. MCH (RBC) [Entitic mass] 31.2 pg 27.0-32.0 [facility] Work Phone: Nucleated RBC/100 WBC (Bld) [Ratio] 0 % 0-5 [facility] Work Phone: MCHC Auto (RBC) [Mass/Vol]on 06-14-2021 MCHC (RBC) [Mass/Vol] 34.8 g/dL 32-36 [facility] Work Phone: No Panel Informationon 06-14 Estimated GFR (MDRD) Amer 185 mL/min >60 [facility] Work Phone: Comment on above: GFR Calc Estimated GFR (MDRD) Non-Af Amer 153 mL/min >60 [facility] Work Phone: Comment on above: Non- GFR Calc Platelets bldon 06-14-2021 Platelets (Bld) [#/Vol] 223 10*3/uL 150-450 [facility] Work Phone: Serum or plasma calcium gordy urement (mass/volume)on 06-14-2021 Calcium [Mass/Vol] 8.0 mg/dL 8.5-10.1 [facility] Work Phone: Serum or plasma creatinine m easurement (mass/volume)on 06-14-2021 Creatinine [Mass/Vol] 0.57 mg/dL 0.70-1.30 [facility] Work Phone: Comment on above: The validity of the calculated GFR & GFRAA in patients over 70 years has not been determined. Clinical correlation is essential. Serum or plasma urea nitroge n measurement (mass/volume)on 06-14-2021 Urea nitrogen [Mass/Vol] 20 mg/dL 7-18 [facility] Work Phone: Thin prep Papanicolaou smear with manual screeningon 06-14-2021 Thin prep Papanicolaou smear with manual screening 7 5-15 [facility] Work Phone: Absolute lymphocyte counton 06-07-2021 Lymphocytes Auto (Unsp spec) [#/Vol] 1.38 10*3/uL 0.83-4.51 [facility] Work Phone: Basophil percentageon 2021 Basophils/100 WBC (Bld) 0.2 % 0-1 [facility] Work Phone: Eosinophils/100 WBC (Bld) 0.0 % 0-5 [facility] Work Phone: Neutrophils (Bld) [#/Vol] 7.3 10*3/uL 2.0-7.7 [facility] Work Phone: Neutrophils/100 WBC (Bld) 75.3 % 47-70 [facility] Work Phone: WBC (Bld) [#/Vol] 9.7 10*3/uL 4.4-11.0 [facility] Work Phone: Blood erythrocytes count (nu mber/volume)on 06-07-2021 RBC (Bld) [#/Vol] 4.48 10*6/uL 4.6-6.2 [facility] Work Phone: Blood hemoglobin measurement (mass/volume)on 06-07-2021 Hemoglobin (Bld) [Mass/Vol] 13.8 g/dL 13.0-16.5 [facility] Work Phone: Blood lymphocytes/100 leukoc yteson 06-07-2021 Lymphocytes/100 WBC (Bld) 14.2 % 19-41 [facility] Work Phone: Blood monocytes/100 leukocyt eson 06-07-2021 Monocytes/100 WBC (Bld) 10.2 % 0-10 [facility] Work Phone: Blood platelet mean volumeon 06-07-2021 Platelet mean volume (Bld) [Entitic vol] 11.9 fL 6.2-12.0 [facility] Work Phone: Determination of erythrocyte mean corpuscular volume (MCV)on 06-07-2021 MCV (RBC) [Entitic vol] 92.9 fL 80-94 [facility] Work Phone: Hematocrit Auto (Bld) [Volum e fraction]on 06-07-2021 Hematocrit (Bld) [Volume fraction] 41.6 % 40-54 [facility] Work Phone: Laboratory - Hematology and Cell countson 06-07-2021 Erythrocyte distribution width (RBC) [Entitic vol] 43.8 fL 35.1-43.9 [facility] Work Phone: [phone] Erythrocyte distribution width (RBC) [Ratio] 12.8 % 11.6-14.6 [facility] Work Phone: [phone] Immature granulocytes/100 WBC (Bld) 0.100 % 0.0-0.9 [facility] Work Phone: Comment on above: IG% - Immature Granu locytes (promyelocytes, myelocytes and metamyelocytes) > 1% indicates that a LEFT SHIFT is Present. MCH (RBC) [Entitic mass] 30.8 pg 27.0-32.0 [facility] Work Phone: [phone] Nucleated RBC/100 WBC (Bld) [Ratio] 0 % 0-5 [facility] Work Phone: [phone] MCHC Auto (RBC) [Mass/Vol]on 06-07-2021 MCHC (RBC) [Mass/Vol] 33.2 g/dL 32-36 [facility] Work Phone: Platelets bldon 06-07-2021 Platelets (Bld) [#/Vol] 152 10*3/uL 150-450 [facility] Work Phone: Absolute lymphocyte counton 05-31-2021 Lymphocytes Auto (Unsp spec) [#/Vol] 1.72 10*3/uL 0.83-4.51 [facility] Work Phone: Basophil percentageon 2021 Basophils/100 WBC (Bld) 0.7 % 0-1 [facility] Work Phone: Eosinophils/100 WBC (Bld) 1.1 % 0-5 [facility] Work Phone: Neutrophils (Bld) [#/Vol] 3.3 10*3/uL 2.0-7.7 [facility] Work Phone: Neutrophils/100 WBC (Bld) 58.5 % 47-70 [facility] Work Phone: WBC (Bld) [#/Vol] 5.6 10*3/uL 4.4-11.0 [facility] Work Phone: Blood erythrocytes count (nu mber/volume)on 05-31-2021 RBC (Bld) [#/Vol] 4.44 10*6/uL 4.6-6.2 [facility] Work [facility]: Blood hemoglobin measurement (mass/volume)on 05-31-2021 Hemoglobin (Bld) [Mass/Vol] 13.6 g/dL 13.0-16.5 [facility] Work Phone: Blood lymphocytes/100 leukoc yteson 05-31-2021 Lymphocytes/100 WBC (Bld) 30.7 % 19-41 [facility] Work Phone: Blood monocytes/100 leukocyt eson 05-31-2021 Monocytes/100 WBC (Bld) 8.6 % 0-10 [facility] Work Phone: Blood platelet mean volumeon 05-31-2021 Platelet mean volume (Bld) [Entitic vol] 11.2 fL 6.2-12.0 [facility] Work Phone: Determination of erythrocyte mean corpuscular volume (MCV)on 05-31-2021 MCV (RBC) [Entitic vol] 92.1 fL 80-94 [facility] Work Phone: Hematocrit Auto (Bld) [Volum e fraction]on 05-31-2021 Hematocrit (Bld) [Volume fraction] 40.9 % 40-54 [facility] Work Phone: Laboratory - Hematology and Cell countson 05-31-2021 Erythrocyte distribution width (RBC) [Entitic vol] 42.2 fL 35.1-43.9 [facility] Work Phone: Erythrocyte distribution width (RBC) [Ratio] 12.4 % 11.6-14.6 [facility] Work Phone: Immature granulocytes/100 WBC (Bld) 0.400 % 0.0-0.9 [facility] Work Phone: [phone] Comment on above: IG% - Immature Granu locytes (promyelocytes, myelocytes and metamyelocytes) > 1% indicates that a LEFT SHIFT is Present. MCH (RBC) [Entitic mass] 30.6 pg 27.0-32.0 [facility] Work Phone: [phone] Nucleated RBC/100 WBC (Bld) [Ratio] 0 % 0-5 [facility] Work Phone: MCHC Auto (RBC) [Mass/Vol]on 05-31-2021 MCHC (RBC) [Mass/Vol] 33.3 g/dL 32-36 [facility] Work Phone: [phone] Platelets bldon 05-31-2021 Platelets (Bld) [#/Vol] 189 10*3/uL 150-450 [facility] Work Phone: [phone] Absolute lymphocyte counton 05-24-2021 Lymphocytes Auto (Unsp spec) [#/Vol] 1.58 10*3/uL 0.83-4.51 [facility] Work Phone: [phone] Basophil percentageon 2021 Basophils/100 WBC (Bld) 0.8 % 0-1 [facility] Work Phone: Eosinophils/100 WBC (Bld) 2.4 % 0-5 [facility] Work Phone: Neutrophils (Bld) [#/Vol] 3.8 10*3/uL 2.0-7.7 [facility] Work Phone: Neutrophils/100 WBC (Bld) 60.3 % 47-70 [facility] Work Phone: WBC (Bld) [#/Vol] 6.3 10*3/uL 4.4-11.0 [facility] Work Phone: [phone] Blood erythrocytes count (nu mber/volume)on 05-24-2021 RBC (Bld) [#/Vol] 4.50 10*6/uL 4.6-6.2 [facility] Work Phone: Blood hemoglobin measurement (mass/volume)on 05-24-2021 Hemoglobin (Bld) [Mass/Vol] 13.7 g/dL 13.0-16.5 [facility] Work Phone: Blood lymphocytes/100 leukoc yteson 05-24-2021 Lymphocytes/100 WBC (Bld) 25.0 % 19-41 [facility] Work Phone: Blood monocytes/100 leukocyt eson 05-24-2021 Monocytes/100 WBC (Bld) 11.2 % 0-10 [facility] Work Phone: Blood platelet mean volumeon 05-24-2021 Platelet mean volume (Bld) [Entitic vol] 11.3 fL 6.2-12.0 [facility] Work Phone: Determination of erythrocyte mean corpuscular volume (MCV)on 05-24-2021 MCV (RBC) [Entitic vol] 92.9 fL 80-94 [facility] Work Phone: Hematocrit Auto (Bld) [Volum e fraction]on 05-24-2021 Hematocrit (Bld) [Volume fraction] 41.8 % 40-54 [facility] Work Phone: Laboratory - Hematology and Cell countson 05-24-2021 Erythrocyte distribution width (RBC) [Entitic vol] 42.8 fL 35.1-43.9 [facility] Work Phone: Erythrocyte distribution width (RBC) [Ratio] 12.6 % 11.6-14.6 [facility] Work Phone: Immature granulocytes/100 WBC (Bld) 0.300 % 0.0-0.9 [facility] Work Phone: Comment on above: IG% - Immature Granu locytes (promyelocytes, myelocytes and metamyelocytes) > 1% indicates that a LEFT SHIFT is Present. MCH (RBC) [Entitic mass] 30.4 pg 27.0-32.0 [facility] Work Phone: Nucleated RBC/100 WBC (Bld) [Ratio] 0 % 0-5 [facility] Work Phone: MCHC Auto (RBC) [Mass/Vol]on 05-24-2021 MCHC (RBC) [Mass/Vol] 32.8 g/dL 32-36 [facility] Work Phone: Platelets bldon 05-24-2021 Platelets (Bld) [#/Vol] 207 10*3/uL 150-450 [facility] Work Phone: [phone] Absolute lymphocyte counton 05-17-2021 Lymphocytes Auto (Unsp spec) [#/Vol] 1.59 10*3/uL 0.83-4.51 [facility] Work Phone: [phone] Basophil percentageon 2021 Basophils/100 WBC (Bld) 0.7 % 0-1 [facility] Work Phone: Eosinophils/100 WBC (Bld) 1.7 % 0-5 [facility] Work Phone: Neutrophils (Bld) [#/Vol] 3.5 10*3/uL 2.0-7.7 [facility] Work Phone: Neutrophils/100 WBC (Bld) 59.5 % 47-70 [facility] Work Phone: [phone] WBC (Bld) [#/Vol] 5.9 10*3/uL 4.4-11.0 [facility] Work Phone: [phone] Blood erythrocytes count (nu mber/volume)on 05-17-2021 RBC (Bld) [#/Vol] 4.35 10*6/uL 4.6-6.2 [facility] Work Phone: [phone] Blood hemoglobin measurement (mass/volume)on 05-17-2021 Hemoglobin (Bld) [Mass/Vol] 13.4 g/dL 13.0-16.5 [facility] Work Phone: Blood lymphocytes/100 leukoc yteson 05-17-2021 Lymphocytes/100 WBC (Bld) 26.9 % 19-41 [facility] Work Phone: Blood monocytes/100 leukocyt eson 05-17-2021 Monocytes/100 WBC (Bld) 11.0 % 0-10 [facility] Work Phone: Blood platelet mean volumeon 05-17-2021 Platelet mean volume (Bld) [Entitic vol] 11.5 fL 6.2-12.0 [facility] Work Phone: Determination of erythrocyte mean corpuscular volume (MCV)on 05-17-2021 MCV (RBC) [Entitic vol] 92.9 fL 80-94 [facility] Work Phone: Hematocrit Auto (Bld) [Volum e fraction]on 05-17-2021 Hematocrit (Bld) [Volume fraction] 40.4 % 40-54 [facility] Work Phone: Laboratory - Hematology and Cell countson 05-17-2021 Erythrocyte distribution width (RBC) [Entitic vol] 43.4 fL 35.1-43.9 [facility] Work Phone: Erythrocyte distribution width (RBC) [Ratio] 12.7 % 11.6-14.6 [facility] Work Phone: Immature granulocytes/100 WBC (Bld) 0.200 % 0.0-0.9 [facility] Work Phone: Comment on above: IG% - Immature Granu locytes (promyelocytes, myelocytes and metamyelocytes) > 1% indicates that a LEFT SHIFT is Present. MCH (RBC) [Entitic mass] 30.8 pg 27.0-32.0 [facility] Work Phone: Nucleated RBC/100 WBC (Bld) [Ratio] 0 % 0-5 [facility] Work Phone: MCHC Auto (RBC) [Mass/Vol]on 05-17-2021 MCHC (RBC) [Mass/Vol] 33.2 g/dL 32-36 [facility] Work Phone: Platelets bldon 05-17-2021 Platelets (Bld) [#/Vol] 171 10*3/uL 150-450 [facility] Work Phone: ED Provider Noteon 2 ED Provider Note Emergency Department Encounter [facility] ED Patient: Kathya Hooper : 1955 [...] [employer] Timothy Burton DO 05/15/21 1530 [facility] ED Provider Note [facility] ED eMERGENCY dEPARTMENT eNCOUnter Pt Name: [...] Diagnosis Date ? TREVER (acute kidney injury) ([facility]) ? Alcohol abuse 07/08/2018 ? Anxiety ? [...] by Per NG tube route nightly BALSAM FROILAN-CAST[employer] OIL (VENELEX) OINT OINTMENT Apply topically every [...] of [place] (more content not included)... Normal [facility] Basophil percentageon 2021 Chloride [Moles/Vol] 105 mmol/L 98-107 [facility] Work Phone: Glucose [Mass/Vol] 96 mg/dL 74-106 [facility] Work Phone: Potassium [Moles/Vol] 3.5 mmol/L 3.5-5.1 [facility] Work Phone: Sodium [Moles/Vol] 141 mmol/L 136-145 [facility] Work Phone: Laboratory - Chemistry and C hemistry - challengeon 05-14-2021 CO2 [Moles/Vol] 30.0 mmol/L 21.0-32.0 [facility] Work Phone: Urea nitrogen/Creatinine [Mass ratio] 39.2 mg/mg 10-20 [facility] Work Phone: No Panel Informationon 05-14 Estimated GFR (MDRD) Amer 210 mL/min >60 [facility] Work Phone: Comment on above: GFR Calc Estimated GFR (MDRD) Non-Af Amer 174 mL/min >60 [facility] Work Phone: Comment on above: Non- GFR Calc Serum or plasma calcium gordy urement (mass/volume)on 05-14-2021 Calcium [Mass/Vol] 8.4 mg/dL 8.5-10.1 [facility] Work Phone: Serum or plasma creatinine m easurement (mass/volume)on 05-14-2021 Creatinine [Mass/Vol] 0.51 mg/dL 0.70-1.30 [facility] Work Phone: Comment on above: The validity of the calculated GFR & GFRAA in patients over 70 years has not been determined. Clinical correlation is essential. Serum or plasma urea nitroge n measurement (mass/volume)on 05-14-2021 Urea nitrogen [Mass/Vol] 20 mg/dL 7-18 [facility] Work Phone: Thin prep Papanicolaou smear with manual screeningon 05-14-2021 Thin prep Papanicolaou smear with manual screening 6 5-15 [facility] Work Phone: Absolute lymphocyte counton 05-10-2021 Lymphocytes Auto (Unsp spec) [#/Vol] 1.65 10*3/uL 0.83-4.51 [facility] Work Phone: Basophil percentageon 2021 Basophils/100 WBC (Bld) 0.5 % 0-1 [facility] Work Phone: Eosinophils/100 WBC (Bld) 0.7 % 0-5 [facility] Work Phone: Neutrophils (Bld) [#/Vol] 5.6 10*3/uL 2.0-7.7 [facility] Work Phone: Neutrophils/100 WBC (Bld) 69.5 % 47-70 [facility] Work Phone: WBC (Bld) [#/Vol] 8.1 10*3/uL 4.4-11.0 [facility] Work Phone: Blood erythrocytes count (nu mber/volume)on 05-10-2021 RBC (Bld) [#/Vol] 4.52 10*6/uL 4.6-6.2 [facility] Work Phone: Blood hemoglobin measurement (mass/volume)on 05-10-2021 Hemoglobin (Bld) [Mass/Vol] 13.8 g/dL 13.0-16.5 [facility] Work Phone: Blood lymphocytes/100 leukoc yteson 05-10-2021 Lymphocytes/100 WBC (Bld) 20.4 % 19-41 [facility] Work Phone: Blood monocytes/100 leukocyt eson 05-10-2021 Monocytes/100 WBC (Bld) 8.4 % 0-10 [facility] Work Phone: Blood platelet mean volumeon 05-10-2021 Platelet mean volume (Bld) [Entitic vol] 11.3 fL 6.2-12.0 [facility] Work Phone: Determination of erythrocyte mean corpuscular volume (MCV)on 05-10-2021 MCV (RBC) [Entitic vol] 91.8 fL 80-94 [facility] Work Phone: Hematocrit Auto (Bld) [Volum e fraction]on 05-10-2021 Hematocrit (Bld) [Volume fraction] 41.5 % 40-54 [facility] Work Phone: Laboratory - Hematology and Cell countson 05-10-2021 Erythrocyte distribution width (RBC) [Entitic vol] 42.9 fL 35.1-43.9 [facility] Work Phone: Erythrocyte distribution width (RBC) [Ratio] 12.8 % 11.6-14.6 [facility] Work Phone: Immature granulocytes/100 WBC (Bld) 0.500 % 0.0-0.9 [facility] Work Phone: Comment on above: IG% - Immature Granu locytes (promyelocytes, myelocytes and metamyelocytes) > 1% indicates that a LEFT SHIFT is Present. MCH (RBC) [Entitic mass] 30.5 pg 27.0-32.0 [facility] Work Phone: Nucleated RBC/100 WBC (Bld) [Ratio] 0 % 0-5 [facility] Work Phone: MCHC Auto (RBC) [Mass/Vol]on 05-10-2021 MCHC (RBC) [Mass/Vol] 33.3 g/dL 32-36 [facility] Work [facility]: Platelets bldon 05-10-2021 Platelets (Bld) [#/Vol] 191 10*3/uL 150-450 [facility] Work Phone: Absolute lymphocyte counton 05-03-2021 Lymphocytes Auto (Unsp spec) [#/Vol] 1.69 10*3/uL 0.83-4.51 [facility] Work Phone: Basophil percentageon 2021 Basophils/100 WBC (Bld) 0.6 % 0-1 [facility] Work Phone: Eosinophils/100 WBC (Bld) 0.7 % 0-5 [facility] Work Phone: Neutrophils (Bld) [#/Vol] 4.6 10*3/uL 2.0-7.7 [facility] Work Phone: Neutrophils/100 WBC (Bld) 64.4 % 47-70 [facility] Work Phone: WBC (Bld) [#/Vol] 7.2 10*3/uL 4.4-11.0 [facility]: Blood erythrocytes count (nu mber/volume)on 05-03-2021 RBC (Bld) [#/Vol] 4.55 10*6/uL 4.6-6.2 [facility] Work Phone: Blood hemoglobin measurement (mass/volume)on 05-03-2021 Hemoglobin (Bld) [Mass/Vol] 14.0 g/dL 13.0-16.5 [facility] Work Phone: Blood lymphocytes/100 leukoc yteson 05-03-2021 Lymphocytes/100 WBC (Bld) 23.6 % 19-41 [facility] Work Phone: Blood monocytes/100 leukocyt eson 05-03-2021 Monocytes/100 WBC (Bld) 10.3 % 0-10 [facility] Work Phone: Blood platelet mean volumeon 05-03-2021 Platelet mean volume (Bld) [Entitic vol] 11.7 fL 6.2-12.0 [facility] Work Phone: Determination of erythrocyte mean corpuscular volume (MCV)on 01-03-2022 MCV (RBC) [Entitic vol] 93.2 fL 80-94 [facility] Work Phone: Hematocrit Auto (Bld) [Volum e fraction]on 05-03-2021 Hematocrit (Bld) [Volume fraction] 42.4 % 40-54 [facility] Work Phone: Laboratory - Hematology and Cell countson 05-03-2021 Erythrocyte distribution width (RBC) [Entitic vol] 44.2 fL 35.1-43.9 [facility] Work Phone: Erythrocyte distribution width (RBC) [Ratio] 13.1 % 11.6-14.6 [facility] Work Phone: Immature granulocytes/100 WBC (Bld) 0.400 % 0.0-0.9 [facility] [facility] Work Phone: Comment on above: IG% - Immature Granu locytes (promyelocytes, myelocytes and metamyelocytes) > 1% indicates that a LEFT SHIFT is Present. MCH (RBC) [Entitic mass] 30.8 pg 27.0-32.0 [facility] Work Phone: Nucleated RBC/100 WBC (Bld) [Ratio] 0 % 0-5 [facility] Work Phone: MCHC Auto (RBC) [Mass/Vol]on 05-03-2021 MCHC (RBC) [Mass/Vol] 33.0 g/dL 32-36 [facility] Work Phone: Platelets bldon 05-03-2021 Platelets (Bld) [#/Vol] 175 10*3/uL 150-450 [facility] Work Phone: Absolute lymphocyte counton 04-26-2021 Lymphocytes Auto (Unsp spec) [#/Vol] 1.68 10*3/uL 0.83-4.51 [facility] Work Phone: [phone] Basophil percentageon 2020 Eosinophils/100 WBC (Bld) 1.1 % 0-5 [facility] Work Phone: Neutrophils (Bld) [#/Vol] 4.5 10*3/uL 2.0-7.7 [facility] Work Phone: WBC (Bld) [#/Vol] 7.2 10*3/uL 4.4-11.0 [facility] Work Phone: Blood erythrocytes count (nu mber/volume)on 04-26-2021 RBC (Bld) [#/Vol] 4.32 10*6/uL 4.6-6.2 [facility]: Blood hemoglobin measurement (mass/volume)on 04-26-2021 Hemoglobin (Bld) [Mass/Vol] 13.5 g/dL 13.0-16.5 [facility] Work Phone: Blood lymphocytes/100 leukoc yteson 04-26-2021 Lymphocytes/100 WBC (Bld) 23.5 % 19-41 [facility] Work Phone: Blood monocytes/100 leukocyt eson 04-26-2021 Monocytes/100 WBC (Bld) 11.0 % 0-10 [facility] Work Phone: Blood platelet mean volumeon 04-26-2021 Platelet mean volume (Bld) [Entitic vol] 11.0 fL 6.2-12.0 [facility] Work Phone: Determination of erythrocyte mean corpuscular volume (MCV)on 04-26-2021 MCV (RBC) [Entitic vol] 93.3 fL 80-94 [facility] Work Phone: Hematocrit Auto (Bld) [Volum e fraction]on 04-26-2021 Hematocrit (Bld) [Volume fraction] 40.3 % 40-54 [facility] Work Phone: Laboratory - Hematology and Cell countson 04-26-2021 Basophils/100 WBC (Unsp spec) 0.6 % 0-1 [facility] Work Phone: Erythrocyte distribution width (RBC) [Entitic vol] 45.8 fL 35.1-43.9 [facility] Work Phone: Erythrocyte distribution width (RBC) [Ratio] 13.2 % 11.6-14.6 [facility] Work Phone: Immature granulocytes/100 WBC (Bld) 0.600 % 0.0-0.9 [facility] Work Phone: Comment on above: IG% - Immature Granu locytes (promyelocytes, myelocytes and metamyelocytes) > 1% indicates that a LEFT SHIFT is Present. MCH (RBC) [Entitic mass] 31.3 pg 27.0-32.0 [facility] Work Phone: Neutrophils/100 WBC (Bld) 63.2 % 47-70 [facility] Work Phone: Nucleated RBC/100 WBC (Bld) [Ratio] 0 % 0-5 [facility] Work Phone: MCHC Auto (RBC) [Mass/Vol]on 04-26-2021 MCHC (RBC) [Mass/Vol] 33.5 g/dL 32-36 [facility] Work Phone: Platelets bldon 04-26-2021 Platelets (Bld) [#/Vol] 172 10*3/uL 150-450 [facility] Work Phone: Absolute lymphocyte counton 04-19-2021 Lymphocytes Auto (Unsp spec) [#/Vol] 1.31 10*3/uL 0.83-4.51 [facility] Work Phone: Basophil percentageon 2020 Eosinophils/100 WBC (Bld) 2.8 % 0-5 [facility] Work Phone: Neutrophils (Bld) [#/Vol] 3.0 10*3/uL 2.0-7.7 [facility] Work Phone: WBC (Bld) [#/Vol] 5.0 10*3/uL 4.4-11.0 [facility] Work Phone: Blood erythrocytes count (nu mber/volume)on 04-19-2021 RBC (Bld) [#/Vol] 4.26 10*6/uL 4.6-6.2 [facility] Work Phone: Blood hemoglobin measurement (mass/volume)on 04-19-2021 Hemoglobin (Bld) [Mass/Vol] 13.2 g/dL 13.0-16.5 [facility] Work Phone: Blood lymphocytes/100 leukoc yteson 04-19-2021 Lymphocytes/100 WBC (Bld) 26.1 % 19-41 [facility] Work Phone: Blood monocytes/100 leukocyt eson 04-19-2021 Monocytes/100 WBC (Bld) 10.0 % 0-10 [facility] Work Phone: Blood platelet mean volumeon 04-19-2021 Platelet mean volume (Bld) [Entitic vol] 10.9 fL 6.2-12.0 [facility] Work Phone: Determination of erythrocyte mean corpuscular volume (MCV)on 04-19-2021 MCV (RBC) [Entitic vol] 93.7 fL 80-94 [facility] Work Phone: Hematocrit Auto (Bld) [Volum e fraction]on 04-19-2021 Hematocrit (Bld) [Volume fraction] 39.9 % 40-54 [facility] Work Phone: Laboratory - Hematology and Cell countson 04-19-2021 Basophils/100 WBC (Unsp spec) 1.0 % 0-1 [facility] Work Phone: Erythrocyte distribution width (RBC) [Entitic vol] 46.7 fL 35.1-43.9 [facility] Work Phone: Erythrocyte distribution width (RBC) [Ratio] 13.7 % 11.6-14.6 [facility] Work Phone: Immature granulocytes/100 WBC (Bld) 0.400 % 0.0-0.9 [facility] Work Phone: Comment on above: IG% - Immature Granu locytes (promyelocytes, myelocytes and metamyelocytes) > 1% indicates that a LEFT SHIFT is Present. MCH (RBC) [Entitic mass] 31.0 pg 27.0-32.0 [facility] Work Phone: Neutrophils/100 WBC (Bld) 59.7 % 47-70 [facility] Work Phone: Nucleated RBC/100 WBC (Bld) [Ratio] 0 % 0-5 [facility] Work Phone: MCHC Auto (RBC) [Mass/Vol]on 04-19-2021 MCHC (RBC) [Mass/Vol] 33.1 g/dL 32-36 [facility] Work Phone: Platelets bldon 04-19-2021 Platelets (Bld) [#/Vol] 165 10*3/uL 150-450 [facility] Work Phone: Absolute lymphocyte counton 04-12-2021 Lymphocytes Auto (Unsp spec) [#/Vol] 1.41 10*3/uL 0.83-4.51 [facility] Work Phone: Basophil percentageon 2020 Bilirubin [Mass/Vol] 0.40 mg/dL 0.20-1.00 [facility] Work Phone: Comment on above: For patients on eltr ombopag therapy, use of Dimension Bozman TBIL is not recommended. Eosinophils/100 WBC (Bld) 0.9 % 0-5 [facility] Work Phone: Neutrophils (Bld) [#/Vol] 3.4 10*3/uL 2.0-7.7 [facility] Work Phone: Protein [Mass/Vol] 5.7 g/dL 6.4-8.2 [facility] Work Phone: WBC (Bld) [#/Vol] 5.5 10*3/uL 4.4-11.0 [facility]: Blood erythrocytes count (nu mber/volume)on 04-12-2021 RBC (Bld) [#/Vol] 4.09 10*6/uL 4.6-6.2 [facility] Work Phone: Blood hemoglobin measurement (mass/volume)on 04-12-2021 Hemoglobin (Bld) [Mass/Vol] 12.4 g/dL 13.0-16.5 [facility] Work Phone: Blood lymphocytes/100 leukoc yteson 04-12-2021 Lymphocytes/100 WBC (Bld) 25.9 % 19-41 [facility] Work Phone: Blood monocytes/100 leukocyt eson 04-12-2021 Monocytes/100 WBC (Bld) 9.2 % 0-10 [facility] Work Phone: Blood platelet mean volumeon 04-12-2021 Platelet mean volume (Bld) [Entitic vol] 11.1 fL 6.2-12.0 [facility] Work Phone: Determination of erythrocyte mean corpuscular volume (MCV)on 04-12-2021 MCV (RBC) [Entitic vol] 93.4 fL 80-94 [facility] Work Phone: Direct bilirubinon Bilirubin.direct [Mass/Vol] 0.08 mg/dL 0.00-0.30 [facility] Work Phone: Hematocrit Auto (Bld) [Volum e fraction]on 04-12-2021 Hematocrit (Bld) [Volume fraction] 38.2 % 40-54 [facility] Work Phone: Laboratory - Chemistry and C hemistry - challengeon 04-12-2021 ALP [Catalytic activity/Vol] 101 U/L 45-117 [facility] Work Phone: ALT [Catalytic activity/Vol] 30 U/L 16-61 [facility] Work Phone: Globulin (S) [Mass/Vol] 2.9 g/dL 2.2-4.2 [facility] Work Phone: [phone] Laboratory - Hematology and Cell countson 04-12-2021 Basophils/100 WBC (Unsp spec) 0.6 % 0-1 [facility] Work Phone: [phone] Erythrocyte distribution width (RBC) [Entitic vol] 46.7 fL 35.1-43.9 [facility] Work Phone: [phone] Erythrocyte distribution width (RBC) [Ratio] 13.7 % 11.6-14.6 [facility] Work Phone: [phone] Immature granulocytes/100 WBC (Bld) 0.400 % 0.0-0.9 [facility] Work Phone: [phone] Comment on above: IG% - Immature Granu locytes (promyelocytes, myelocytes and metamyelocytes) > 1% indicates that a LEFT SHIFT is Present. MCH (RBC) [Entitic mass] 30.3 pg 27.0-32.0 [facility] Work Phone: [phone] Neutrophils/100 WBC (Bld) 63.0 % 47-70 [facility] Work Phone: [phone] Nucleated RBC/100 WBC (Bld) [Ratio] 0 % 0-5 [facility] Work Phone: MCHC Auto (RBC) [Mass/Vol]on 04-12-2021 MCHC (RBC) [Mass/Vol] 32.5 g/dL 32-36 [facility] Work Phone: Platelets bldon 04-12-2021 Platelets (Bld) [#/Vol] 173 10*3/uL 150-450 [facility] Work Phone: Serum or plasma albumin gordy urement (mass/volume)on 04-12-2021 Albumin [Mass/Vol] 2.8 g/dL 3.2-5.0 [facility] Work Phone: Thin prep Papanicolaou smear with manual screeningon 04-12-2021 Thin prep Papanicolaou smear with manual screening 15 U/L 15-37 [facility] Work Phone: Absolute lymphocyte counton 04-07-2021 Lymphocytes Auto (Unsp spec) [#/Vol] 1.55 10*3/uL 0.83-4.51 [facility] Work [phone] Basophil percentageon 2020 Eosinophils/100 WBC (Bld) 0.7 % 0-5 [facility] Work Phone: Neutrophils (Bld) [#/Vol] 5.3 10*3/uL 2.0-7.7 [facility] Work Phone: WBC (Bld) [#/Vol] 8.1 10*3/uL 4.4-11.0 [facility] Work Phone: Blood erythrocytes count (nu mber/volume)on 04-07-2021 RBC (Bld) [#/Vol] 4.18 10*6/uL 4.6-6.2 [facility] Work Phone: Blood hemoglobin measurement (mass/volume)on 04-07-2021 Hemoglobin (Bld) [Mass/Vol] 12.9 g/dL 13.0-16.5 [facility] Work Phone: Blood lymphocytes/100 leukoc yteson 04-07-2021 Lymphocytes/100 WBC (Bld) 19.2 % 19-41 [facility] Work Phone: Blood monocytes/100 leukocyt eson 04-07-2021 Monocytes/100 WBC (Bld) 13.0 % 0-10 [facility] Work Phone: Blood platelet mean volumeon 04-07-2021 Platelet mean volume (Bld) [Entitic vol] 10.9 fL 6.2-12.0 [facility] Work Phone: Determination of erythrocyte mean corpuscular volume (MCV)on 04-07-2021 MCV (RBC) [Entitic vol] 92.6 fL 80-94 [facility] Work Phone: Hematocrit Auto (Bld) [Volum e fraction]on 04-07-2021 Hematocrit (Bld) [Volume fraction] 38.7 % 40-54 [facility] Work Phone: Laboratory - Hematology and Cell countson 04-07-2021 Basophils/100 WBC (Unsp spec) 0.6 % 0-1 [facility] Work Phone: Erythrocyte distribution width (RBC) [Entitic vol] 45.8 fL 35.1-43.9 [facility] Work Phone: Erythrocyte distribution width (RBC) [Ratio] 13.5 % 11.6-14.6 [facility] Work Phone: Immature granulocytes/100 WBC (Bld) 0.500 % 0.0-0.9 [facility] Work Phone: Comment on above: IG% - Immature Granu locytes (promyelocytes, myelocytes and metamyelocytes) > 1% indicates that a LEFT SHIFT is Present. MCH (RBC) [Entitic mass] 30.9 pg 27.0-32.0 [facility] Work Phone: Neutrophils/100 WBC (Bld) 66.0 % 47-70 [facility] Work Phone: Nucleated RBC/100 WBC (Bld) [Ratio] 0 % 0-5 [facility] Work Phone: MCHC Auto (RBC) [Mass/Vol]on 04-07-2021 MCHC (RBC) [Mass/Vol] 33.3 g/dL 32-36 [facility] Work Phone: Platelets bldon 04-07-2021 Platelets (Bld) [#/Vol] 210 10*3/uL 150-450 [facility] Work Phone: CULTURE BLOODon 03-25-2021 Microscopic examination of blood, culture CULTURE BLOOD --> Status: F No growth at 5 days. Normal [facility] Comment on above: Performed By: #### C /BLD ####[facility] [employer] [id number] [place] [address] CULTURE BLOOD (Two)on 2020 Microscopic examination of blood, culture CULTURE BLOOD (Two) --> Status: F No growth at 5 days. Normal [facility] Comment on above: Performed By: #### C /BLT ####[facility] [employer] [id number] [place] [address] Basic Metabolic Panelon 03-02 Calcium [Mass/Vol] 8.8 mg/dL Normal 8.4-10.4 [facility] Comment on above: Performed By: #### H EMDF, BMP3 #### [facility] [employer] [facility] [address] [place] [address] Glucose [Mass/Vol] 103 mg/dL High 70-100 [facility] Comment on above: Performed By: #### H EMDF, BMP3 #### [facility] [address] [place] [address] Anion gap [Moles/Vol] 5 mmol/L Normal 3-13 [facility] Comment on above: Performed By: #### H EMDF, BMP3 #### [facility] [employer] [facility] [address] [place] [address] CO2 [Moles/Vol] 26 mmol/L Normal 22-[address] [facility] Comment on above: Performed By: #### H EMDF, BMP3 #### [facility] [employer] [facility] [address] [place] [address] Creatinine [Mass/Vol] 0.49 mg/dL Low 0.52-1.25 [facility] Comment on above: Performed By: #### H EMDF, BMP3 #### [facility] [address] [place] [address] eGFR OTHER > 90.0 Normal >60 [facility] Comment on above: Result Comment: KDIG O [...] Performed By: #### Kerri BRAR BMP3 #### [facility] [address] [place] [address] GFR/1.73 sq M.predicted among blacks MDRD (S/P/Bld) [Vol rate/Area] mL/min/{1.73_m2} Normal >60 [facility] Comment on above: Performed By: #### Kerri BRAR BMP3 #### [facility] [address] [place] [address] Urea nitrogen [Mass/Vol] 30 mg/dL High 7-17 [facility] Comment on above: Performed By: #### Kerri BRAR BMP3 #### [facility] [address] [place] [address] Chloride [Moles/Vol] 112 mmol/L High 98-107 [facility] Comment on above: Performed By: #### Kerri BRAR BMP3 #### [facility] [address] [place] [address] Potassium [Moles/Vol] 4.1 mmol/L Normal 3.5-5.1 [facility] Comment on above: Performed By: #### H MAYKEL BMP3 #### [facility] [address] [place] [address] Sodium [Moles/Vol] 142 mmol/L Normal 135-145 [facility] Comment on above: Performed By: #### Kerri BRAR BMP3 #### [facility] [address] [place] [address] Anion gap [Moles/Vol] 5 mmol/L 3 - 13 mmol/L [facility] Work Phone: Calcium [Mass/Vol] 8.8 mg/dL 8.4 - 10. 4 mg/dL [facility] Work Phone: Chloride [Moles/Vol] 112 mmol/L High 98 - 10 7 mmol/L [facility] Work Phone: CO2 [Moles/Vol] 26 mmol/L 22 - 30 mmol/L [facility] Work Phone: Creatinine [Mass/Vol] 0.49 mg/dL Low 0.52 - 1.25 mg/dL [facility] Work Phone: EGFR IF NonAfrican Norwegian >90.0 >60 mL/min [facility] Work Phone: Comment on above: KDIGO [...] 30 mg/dL High 7 - 17 mg/dL [employer] Work Phone: Test Performed by [employer], [address] [place] [address] [facility] Work Phone: CBC Auto Differentialon 11-2 Hematocrit (Bld) [Volume fraction] 35.0 % Low 40.0 - 52.0 % [employer] Work Phone: Hemoglobin.gastrointest inal spec 1 Ql (Stl) 11.7 g/dL Low 13.0 - 18.0 g/dL [employer] Work Phone: Interpretation and review of laboratory results Abnormal [facility] Work Phone: MCH (RBC) [Entitic mass] 31.0 pg 26.0 - 34.0 pg [employer] Work Phone: MCHC (RBC) [Mass/Vol] 33.4 % 32.0 - 36.0 % [employer] Work Phone: MCV (RBC) [Entitic vol] 92.7 fL 80.0 - 98.0 fL [employer] Work Phone: Platelet distribution width (Bld) [Ratio] 13.4 % 11.5 - 14.5 % [employer] Phone: Platelet mean volume (Bld) [Entitic vol] 8.6 fL 7.4 - 10.4 fL [employer] Work Phone: Platelets (Bld) [#/Vol] 236 10*3/uL 140 - 440 10*3/uL [employer] Work Phone: RBC (Bld) [#/Vol] 3.77 10*6/uL Low 4.40 - 5.9 0 10*6/uL [employer] Work Phone: WBC (Bld) [#/Vol] 12.8 10*3/uL High 3.6 - 10.7 10*3/uL [employer] Work Phone: Test Performed by [employer], [address] [place], [place] [address] [facility] Work Phone: Glucose,Bedsideon 03-24-2021 Glucose [Mass/Vol] 93 mg/dL Normal 70-100 [facility] Comment on above: Result Comment: Test performed by glucose meter. Results may be 10%-15% lower than serum/plasma values. (CLIA ID [id number]) Performed By: #### H EMDF, BMP3 #### [employer] [facility] [address] [place] [address] Glucose [Mass/Vol] 166 mg/dL High 70-100 [facility] Comment on above: Result Comment: Test performed by glucose meter. Results may be 10%-15% lower than serum/plasma values. (CLIA ID [id number]) Performed By: #### B GLU ####[facility] [employer] [id number] [facility] [place] [address] Hemogram w/ Autodiffon 03-24 Erythrocyte distribution width (RBC) [Ratio] 13.4 % Normal 11.5-14.5 [facility] Comment on above: Performed By: #### H EMDF, BMP3 #### [employer] [facility] [address] [place] [address] Hematocrit (Bld) [Volume fraction] 35.0 % Low 40.0-52.0 [facility] Comment on above: Performed By: #### H EMDF, BMP3 #### [facility] [employer] [facility] [address] [place] [address] Hemoglobin (Bld) [Mass/Vol] 11.7 g/dL Low 13.0-18.0 [facility] Comment on above: Performed By: #### H EMDF, BMP3 #### [facility] [employer] [facility] [address] [place] [address] MCH (RBC) [Entitic mass] 31.0 pg Normal 26.0-34.0 [facility] Comment on above: Performed By: #### H EMDF, BMP3 #### [facility] [employer] [facility] [address] [place] [address] MCHC 33.4 % Normal 32.0-36.0 [facility] Comment on above: Performed By: #### H EMDF, BMP3 #### [facility] [address] [place] [address] MCV (RBC) [Entitic vol] 92.7 fL Normal 80.0-98.0 [facility] Comment on above: Performed By: #### H EMDF, BMP3 #### [facility] [address] [place] [address] Platelet mean volume (Bld) [Entitic vol] 8.6 fL Normal 7.4-10.4 [facility] Comment on above: Performed By: #### H EMDF, BMP3 #### [facility] [address] [place] [address] Platelets (Bld) [#/Vol] 236 10*3/uL Normal 140-440 [facility] Comment on above: Performed By: #### H MAYKEL, BMP3 #### [facility] [address] [place] [address] RBC (Bld) [#/Vol] 3.77 10*6/uL Low 4.40-5.90 [facility] Comment on above: Performed By: #### H MAYKEL BMP3 #### [facility] [address] [place] [address] WBC (Bld) [#/Vol] 12.8 10*3/uL High 3.6-10.7 [facility] Comment on above: Performed By: #### H EMDF, BMP3 #### [facility] [address] [place] [address] Manual Diffon 03-24-2021 Abs Lymph Cnt 1.7 10*3/uL Normal 1.1-4.5 [facility] Comment on above: Performed By: #### H EMDF, BMP3 #### [facility] [address] [place] [address] Abs Monocyte Cnt 0.8 10*3/uL Normal 0.2-1.1 [facility] Comment on above: Performed By: #### H MAYKEL, BMP3 #### [facility] [address] [place] [address] Abs Neutrophile Cnt 10.1 10*3/uL High 2.2-8.2 [facility] Comment on above: Performed By: #### H EMDF, BMP3 #### [facility] [address] [place] [address] Anisocytosis Slight Normal [facility] Comment on above: Performed By: #### H EMDF, BMP3 #### [facility] [address] [place] [address] Atypical Lymphocytes 2 % Abnormal <1 [facility] Comment on above: Performed By: #### H EMDF, BMP3 #### [facility] [address] [place] [address] Abdoul Cells Slight Normal [facility] Comment on above: Performed By: #### H EMDF, BMP3 #### [facility] [address] [place] [address] Lymphocytes 11 % Low 20-40 [facility] Comment on above: Performed By: #### H EMDF, BMP3 #### [facility] [address] [place] [address] Monocytes 6 % Normal 2-10 [facility] Comment on above: Performed By: #### H EMDF, BMP3 #### [facility] [address] [place] [address] Myelocytes 2 % Abnormal <1 [facility] Comment on above: Performed By: #### H EMDF, BMP3 #### [facility] [address] [place] [address] Ovalocytes Slight Normal [facility] Comment on above: Performed By: #### H EMDF, BMP3 #### [facility] [address] [place] [address] Poikilocytosis Slight Normal [facility] Comment on above: Performed By: #### H EMDF, BMP3 #### [facility] [address] [place] [address] Polychromasia Slight Normal [facility] Comment on above: Performed By: #### H EMDF, BMP3 #### [facility] [address] [place] [address] RBC Morphology ABNORMAL Normal [facility] Comment on above: Performed By: #### H EMDF, BMP3 #### [facility] [address] [place] [address] Seg Neutrophils 79 % Normal 40-[address] [facility] Comment on above: Performed By: #### H EMDF, BMP3 #### [facility] [address] [place] [address] Tear Drop Forms Slight Normal [facility] Comment on above: Performed By: #### H EMDF, BMP3 #### [facility] [address] [place] [address] Abs Baso Cnt 0.0 10*3/uL Normal 0.0-0.2 [facility] Comment on above: Performed By: #### H EMDF, BMP3 #### [facility] [address] [place] [address] Abs Eosin Cnt 0.0 10*3/uL Normal 0.0-0.5 [facility] Comment on above: Performed By: #### H EMDF, BMP3 #### [facility] [address] [place] [address] Bands 0 % Normal 0-3 [facility] Comment on above: Performed By: #### H EMDF, BMP3 #### [facility] [address] [place] [address] Basophils 0 % Normal 0-2 [facility] Comment on above: Performed By: #### H EMDF, BMP3 #### [facility] [address] [place] [address] Cells counted 100 Normal [facility] Comment on above: Performed By: #### H EMDF, BMP3 #### [facility] [address] [place] [address] Eosinophils 0 % Low 1-6 [facility] Comment on above: Performed By: #### H EMDF, BMP3 #### [facility] [address] [place] [address] Manual Differentialon 2020 Absolute Baso # 0.0 10*3/uL 0.0 - 0.2 10*3/uL [facility] Work Phone: Absolute Eos # 0.0 10*3/uL 0.0 - 0.5 10*3/uL [facility] Work Phone: Absolute Lymph # 1.7 10*3/uL 1.1 - 4.5 10*3/uL [facility] Work Phone: Absolute Mcminn # 0.8 10*3/uL 0.2 - 1.1 10*3/uL [facility] Work Phone: Absolute Neut # 10.1 10*3/uL High 2.2 - 8.2 10*3/uL [facility] Work Phone: Anisocytosis Slight [facility] Work Phone: Atypical Lymphocytes 2 % Abnormal <1 [facility] Work Phone: Bands 0 % 0 - 3 % [facility] Work Phone: Basophils/100 WBC (Bld) 0 % 0 - 2 % S [facility] Work Phone: Rochelle Cells Slight [facility] Work Phone: Eosinophils/100 WBC [...] [facility] Work Phone: TOTAL CELLS COUNTED 100 [facility] Work Phone: Test Performed by [facility], [address] [place] [address] [place] [facility] Work Phone: POCT Glucoseon 03-24-2021 Glucose [Mass/Vol] 93 mg/dL 70 - 100 mg/dL [facility] Work Phone: Comment on above: Test performed by gl ucose meter. Results may be 10%-15% lower than serum/plasma values. (CLIA ID [id number]) Test Performed by [facility], [address] [place] [address] [place] [facility] Work Phone: Basic Metabolic Panelon 03-02 Calcium [Mass/Vol] 8.8 mg/dL Normal 8.4-10.4 [facility] Comment on above: Performed By: #### H EMDF, BMP3 #### [facility] [address] [place] [address] Glucose [Mass/Vol] 143 mg/dL High 70-100 [facility] Comment on above: Performed By: #### H EMDF, BMP3 #### [facility] [address] [place] [address] Anion gap [Moles/Vol] 8 mmol/L Normal 3-13 [facility] Comment on above: Performed By: #### H EMDF, BMP3 #### [facility] [address] [place] [address] CO2 [Moles/Vol] 24 mmol/L Normal 22-30 [facility] Comment on above: Performed By: #### H EMDF, BMP3 #### [facility] [address] [place] [address] Creatinine [Mass/Vol] 0.47 mg/dL Low 0.52-1.25 [facility] Comment on above: Performed By: #### H EMDF, BMP3 #### [facility] [address] [place] [address] eGFR OTHER > 90.0 Normal >60 [facility] Comment on above: Result Comment: KDIG O [...] Performed By: #### H EMDF, BMP3 #### [facility] [address] [place] [address] GFR/1.73 sq M.predicted among blacks MDRD (S/P/Bld) [Vol rate/Area] mL/min/{1.73_m2} Normal >60 [facility] Comment on above: Performed By: #### H EMDF BMP3 #### [facility] [address] [place] [address] Urea nitrogen [Mass/Vol] 32 mg/dL High 7-17 [facility] Comment on above: Performed By: #### H EMDF, BMP3 #### [facility] [address] [place] [address] Chloride [Moles/Vol] 110 mmol/L High 98-107 [facility] Comment on above: Performed By: #### H EMDF, BMP3 #### [facility] [address] [place] [address] Potassium [Moles/Vol] 3.9 mmol/L Normal 3.5-5.1 [facility] Comment on above: Performed By: #### H EMDF, BMP3 #### [facility] [address] [place] [address] Sodium [Moles/Vol] 142 mmol/L Normal 135-145 [facility] Comment on above: Performed By: #### H EMDF, BMP3 #### [facility] [address] [place] [address] Anion gap [Moles/Vol] 8 mmol/L 3 - 13 mmol/L [facility] Work Phone: Calcium [Mass/Vol] 8.8 mg/dL 8.4 - 10. 4 mg/dL [facility] Work Phone: Chloride [Moles/Vol] 110 mmol/L High 98 - 10 7 mmol/L [facility] Work Phone: CO2 [Moles/Vol] 24 mmol/L 22 - 30 mmol/L [facility] Work Phone: Creatinine [Mass/Vol] 0.47 mg/dL Low 0.52 - 1.25 mg/dL [facility] Work Phone: EGFR IF NonAfrican Norwegian >90.0 >60 mL/min [facility] Work Phone: Comment on above: KDIGO guidelines [...] >60 mL/min [facility] Work Phone: Glucose [Mass/Vol] 143 mg/dL High 70 - 100 mg/dL [facility] Work Phone: Interpretation and review of laboratory results Abnormal [facility] Work Phone: Potassium [Moles/Vol] 3.9 mmol/L 3.5 - 5.1 mmol/L [facility] Work Phone: Sodium [Moles/Vol] 142 mmol/L 135 - 145 mmol/L [facility] Work Phone: Urea nitrogen (BldV) [Mass/Vol] 32 mg/dL High 7 - 17 mg/dL [facility] Work Phone: Test Performed by [employer] [facility], [address] [place], [place] [id number] [place] [address] LAB [facility] Work Phone: CBC Auto Differentialon 11-2 Absolute Baso # 0.0 10*3/uL 0.0 - 0.2 10*3/uL [facility] Work Phone: Absolute Neut # 13.5 10*3/uL High 1.8 - 7.0 10*3/uL [facility] Work Phone: Basophils/100 WBC (Bld) 0.3 % 0.0 - 2.0 % [facility] Work Phone: Eosinophils (Bld) [#/Vol] 0.0 10*3/uL 0.0 - 0.5 10*3/uL [facility] Work Phone: Eosinophils/100 WBC (Bld) 0.0 % Low 1.0 - 6.0 % [facility] Work Phone: Granulocytes/100 WBC (Bld) 89.5 % High 40.0 - 80.0 % [facility] Work Phone: Hematocrit (Bld) [Volume fraction] 36.5 % Low 40.0 - 52.0 % [employer] Work Phone: Hemoglobin.gastrointest inal spec 1 Ql (Stl) 12.4 g/dL Low 13.0 - 18.0 g/dL [facility] Work Phone: Interpretation and review of laboratory results Abnormal [facility] Work Phone: Lymphocytes (Bld) [#/Vol] 0.7 10*3/uL Low 1.0 - 4.3 10*3/uL [employer] Work Phone: [phone] Lymphocytes/100 WBC (Bld) 4.8 % Low 20.0 - 40.0 % [employer] Work Phone: [phone] MCH (RBC) [Entitic mass] 31.3 pg 26.0 - 34.0 pg [facility] Work Phone: [phone] MCHC (RBC) [Mass/Vol] 34.1 % 32.0 - 36.0 % [facility] Work Phone: [phone] MCV (RBC) [Entitic vol] 92.0 fL 80.0 - 98.0 fL [employer] Work Phone: [phone] Monocytes (Bld) [#/Vol] 0.8 10*3/uL 0.0 - 0.8 10*3/uL [employer] Work Phone: [phone] Monocytes/100 WBC (Bld) 5.4 % 2.0 - 10.0 % [employer] Work Phone: [phone] Platelet distribution width (Bld) [Ratio] 13.2 % 11.5 - 14.5 % [employer] Work Phone: Platelet mean volume (Bld) [Entitic vol] 9.0 fL 7.4 - 10.4 fL [employer] Work Phone: [phone] Platelets (Bld) [#/Vol] 211 10*3/uL 140 - 440 10*3/uL [employer] Work Phone: [phone] RBC (Bld) [#/Vol] 3.96 10*6/uL Low 4.40 - 5.9 0 10*6/uL [employer] Work Phone: WBC (Bld) [#/Vol] 15.1 10*3/uL High 3.6 - 10.7 10*3/uL [employer] Work Phone: Test Performed by [employer] [facility], [address] [place], [place], [place] [address] [place] [address] LAB [employer] Work Phone: [phone] Glucose,Bedsideon 03-23-2021 Glucose [Mass/Vol] 122 mg/dL High 70-100 [facility] Comment on above: Result Comment: Test performed by glucose meter. Results may be 10%-15% lower than serum/plasma values. (CLIA ID [id number]) Performed By: #### H MAYKEL BMP3 #### [facility] [address] [place] [address] Glucose [Mass/Vol] 129 mg/dL High 70-100 [facility] Comment on above: Test performed by gl ucose meter. Results may be 10%-15% lower than serum/plasma values. (CLIA ID [id number]) Result Comment: Test performed by glucose meter. Results may be 10%-15% lower than serum/plasma values. (CLIA ID [id number]) Performed By: #### B GLU ####[place] [address] [facility] [place] [address] Glucose [Mass/Vol] 136 mg/dL High 70-100 [facility] Comment on above: Result Comment: Test performed by glucose meter. Results may be 10%-15% lower than serum/plasma values. (CLIA ID [id number]) Performed By: #### B GLU #### [facility] [address] [place] [address] Hemogram w/ Autodiffon 03-23 Abs Baso Cnt 0.0 10*3/uL Normal 0.0-0.2 [facility] Comment on above: Performed By: #### H EMDF BMP3 #### [facility] [address] [place] [address] Abs Neutrophile Cnt 13.5 10*3/uL High 1.8-7.0 [facility] Comment on above: Performed By: #### H EMDF BMP3 #### [facility] [address] [place] [address] Basophils/100 WBC (Bld) 0.3 % Normal 0.0-2.0 S [facility] Comment on above: Performed By: #### H ALCIRAF BMP3 #### [facility] [address] [place] [address] Eosinophils (Bld) [#/Vol] 0.0 10*3/uL Normal 0.0-0.5 [facility] Comment on above: Performed By: #### H EMDF, BMP3 #### [facility] [address] [place] [address] Eosinophils/100 WBC (Bld) 0.0 % Low 1.0-6.0 [facility] Comment on above: Performed By: #### H EMDF, BMP3 #### [facility] [address] [place] [address] Erythrocyte distribution width (RBC) [Ratio] 13.2 % Normal 11.5-14.5 [facility] Comment on above: Performed By: #### H EMDF, BMP3 #### [facility] [address] [place] [address] Granulocytes/100 WBC (Bld) 89.5 % High 40.0-80.0 [facility] Comment on above: Performed By: #### H EMDF, BMP3 #### [facility] [employer] [facility] [address] [place] [address] Hematocrit (Bld) [Volume fraction] 36.5 % Low 40.0-52.0 [facility] Comment on above: Performed By: #### H EMDF, BMP3 #### [facility] [employer] [facility] [address] [place] [address] Hemoglobin (Bld) [Mass/Vol] 12.4 g/dL Low 13.0-18.0 [facility] Comment on above: Performed By: #### H EMDF, BMP3 #### [facility] [address] [place] [address] Lymphocytes (Bld) [#/Vol] 0.7 10*3/uL Low 1.0-4.3 [facility] Comment on above: Performed By: #### H EMDF, BMP3 #### [facility] [address] [place] [address] Lymphocytes/100 WBC (Bld) 4.8 % Low 20.0-40.0 [facility] Comment on above: Performed By: #### H EMDF, BMP3 #### [facility] [address] [place] [address] MCH (RBC) [Entitic mass] 31.3 pg Normal 26.0-34.0 [facility] Comment on above: Performed By: #### H EMDF, BMP3 #### [facility] [address] [place] [address] MCHC 34.1 % Normal 32.0-36.0 [facility] Comment on above: Performed By: #### H EMDF, BMP3 #### [facility] [address] [place] [address] MCV (RBC) [Entitic vol] 92.0 fL Normal 80.0-98.0 S [facility] Comment on above: Performed By: #### H EMDF, BMP3 #### [facility] [address] [place] [address] Monocytes (Bld) [#/Vol] 0.8 10*3/uL Normal 0.0-0.8 [facility] Comment on above: Performed By: #### H EMDF, BMP3 #### [facility] [address] [place] [address] Monocytes/100 WBC (Bld) 5.4 % Normal 2.0-10.0 S [facility] Comment on above: Performed By: #### H EMDF, BMP3 #### [facility] [address] [place] [address] Platelet mean volume (Bld) [Entitic vol] 9.0 fL Normal 7.4-10.4 [facility] Comment on above: Performed By: #### H EMDF, BMP3 #### [facility] [address] [place] [address] Platelets (Bld) [#/Vol] 211 10*3/uL Normal 140-440 [facility] Comment on above: Performed By: #### H EMDF, BMP3 #### [facility] [address] [place] [address] RBC (Bld) [#/Vol] 3.96 10*6/uL Low 4.40-5.90 [facility] Comment on above: Performed By: #### H EMDF, BMP3 #### [facility] [address] [place] [address] WBC (Bld) [#/Vol] 15.1 10*3/uL High 3.6-10.7 [facility] Comment on above: Performed By: #### H EMDF, BMP3 #### [facility] [address] [place] [address] No Panel Informationon 03-23 Interpretation and review of laboratory results Abnormal [facility] Work Phone: Test Performed by [facility], [address] LAB [facility] Work Phone: POCT Glucoseon 03-23-2021 Glucose [Mass/Vol] 166 mg/dL High 70 - 100 mg/dL [facility] Comment on above: Test performed by gl ucose meter. Results may be 10%-15% lower than serum/plasma values. (CLIA ID [id number]) Interpretation and review of laboratory results Abnormal [facility] Test Performed by [facility], [address] LAB [facility] Glucose [Mass/Vol] 122 mg/dL High 70 - 100 mg/dL [facility] Work Phone: Comment on above: Test performed by gl ucose meter. Results may be 10%-15% lower than serum/plasma values. (CLIA ID [id number]) Glucose [Mass/Vol] 136 mg/dL High 70 - 100 mg/dL [facility] Comment on above: Test performed by gl ucose meter. Results may be 10%-15% lower than serum/plasma values. (CLIA ID [id number]) Interpretation and review of laboratory results Abnormal [facility] Test Performed by [facility], [address] LAB [facility] CBC Auto Differentialon 03-02 Absolute Baso # 0.0 10*3/uL 0.0 - 0.2 10*3/uL [facility] Absolute Neut # 12.3 10*3/uL High 1.8 - 7.0 10*3/uL [facility] Basophils/100 WBC (Bld) 0.2 % 0.0 - [...] - 10.7 10*3/uL [facility] Test Performed by [employer] [facility], [address] [facility], [place], [place] [address] [place] [facility] Glucose,Bedsideon 03-22-2021 Glucose [Mass/Vol] 134 mg/dL High 70-100 [facility] Comment on above: Result Comment: Test performed by glucose meter. Results may be 10%-15% lower than serum/plasma values. (CLIA ID [id number]) Performed By: #### H EMDF, BMP3 #### [facility] [address] [facility] [address] Glucose [Mass/Vol] 190 mg/dL High 70-100 [facility] Comment on above: Result Comment: Test performed by glucose meter. Results may be 10%-15% lower than serum/plasma values. (CLIA ID [id number]) Performed By: #### B GLU #### [facility] [address] [facility] [place] [address] Glucose [Mass/Vol] 200 mg/dL [facility] [address] Comment on above: Result Comment: Test performed by glucose meter. Results may be 10%-15% lower than serum/plasma values. (CLIA ID [id number]) Performed By: #### B GLU #### [facility] [employer] [facility] [address] [place] [address] Glucose [Mass/Vol] 181 mg/dL [facility] 70-100 [facility] Comment on above: Result Comment: Test performed by glucose meter. Results may be 10%-15% lower than serum/plasma values. (CLIA ID [id number]) Performed By: #### B GLU #### [facility] [address] [facility] [place] [address] Glucose [Mass/Vol] 186 mg/dL [facility] [address] [place] [address] Comment on above: Result Comment: Test performed by glucose meter. Results may be 10%-15% lower than serum/plasma values. (CLIA ID [id number]) Performed By: #### B GLU #### [facility] [employer] [facility] [address] [place] [address] Hemoglobin A1Con 03-22-2021 Glucose [Mass/Vol] 108 mg/dL Normal [facility] Comment on above: Performed By: #### B GLU #### [facility] [address] [place] [address] HbA1c (Bld) [Mass fraction] 5.4 % Normal [facility] Comment on above: Result Comment: Norm al less than 5.7% Prediabetes 5.7% to 6.4% Diabetes 6.5% or higher --HgbA1C levels may not be accurate in patients who have renal disease, received recent blood transfusions, are anemic, or who have dyshemoglobinemia. Performed By: #### B GLU #### [facility] [address] [place] [address] HbA1c (Bld) [Mass fraction] 5.4 % [facility] Comment on above: Normal less than 5.7 % Prediabetes 5.7% to 6.4% Diabetes 6.5% or higher --HgbA1C levels may not be accurate in patients who have renal disease, received recent blood transfusions, are anemic, or who have dyshemoglobinemia. Magnesium [Mass/Vol] 108 mg/dL [facility] Test Performed by [facility], [facility] [address] [place], [place] [address] [place] [facility] Hemogram w/ Autodiffon 03-22 Abs Baso Cnt 0.0 10*3/uL Normal 0.0-0.2 [facility] Comment on above: Performed By: #### B GLU #### [facility] [address] [place] [address] Abs Neutrophile Cnt 12.3 10*3/uL High 1.8-7.0 [facility] Comment on above: Performed By: #### B GLU #### [facility] [address] [place] [address] Basophils/100 WBC (Bld) 0.2 % Normal 0.0-2.0 [facility] Comment on above: Performed By: #### B GLU #### [place] [address] [place] [address] Eosinophils (Bld) [#/Vol] 0.0 10*3/uL Normal 0.0-0.5 [facility] Comment on above: Performed By: #### B GLU #### [place] [address] [facility] [place] [address] Eosinophils/100 WBC (Bld) 0.0 % Low 1.0-6.0 [facility] Comment on above: Performed By: #### B GLU #### [facility] [address] [place] [address] Erythrocyte distribution width (RBC) [Ratio] 12.8 % Normal 11.5-14.5 [facility] Comment on above: Performed By: #### B GLU #### [facility] [address] [place] [address] Granulocytes/100 WBC (Bld) 92.7 % High 40.0-80.0 [facility] Comment on above: Performed By: #### B GLU #### [facility] [address] [place] [address] Hematocrit (Bld) [Volume fraction] 35.9 % Low 40.0-52.0 [facility] Comment on above: Performed By: #### B GLU #### [facility] [address] [place] [address] Hemoglobin (Bld) [Mass/Vol] 12.4 g/dL Low 13.0-18.0 [facility] Comment on above: Performed By: #### B GLU #### [facility] [address] [place] [address] Lymphocytes (Bld) [#/Vol] 0.5 10*3/uL Low 1.0-4.3 [facility] Comment on above: Performed By: #### B GLU #### [facility] [address] [place] [address] Lymphocytes/100 WBC (Bld) 3.6 % Low 20.0-40.0 [facility] Comment on above: Performed By: #### B GLU #### [facility] [address] [place] [address] MCH (RBC) [Entitic mass] 31.6 pg Normal 26.0-34.0 [facility] Comment on above: Performed By: #### B GLU #### [facility] [address] [place] [address] MCHC 34.6 % Normal 32.0-36.0 [facility] Comment on above: Performed By: #### B GLU #### [facility] [address] [place] [address] MCV (RBC) [Entitic vol] 91.2 fL Normal 80.0-98.0 [facility] Comment on above: Performed By: #### B GLU #### [facility] [address] [place] [address] Monocytes (Bld) [#/Vol] 0.5 10*3/uL Normal 0.0-0.8 [facility] Comment on above: Performed By: #### B GLU #### [facility] [address] [place] [address] Monocytes/100 WBC (Bld) 3.5 % Normal 2.0-10.0 [facility] Comment on above: Performed By: #### B GLU #### [facility] [address] [place] [address] Platelet mean volume (Bld) [Entitic vol] 9.5 fL Normal 7.4-10.4 [facility] Comment on above: Performed By: #### B GLU #### [facility] [address] [place] [address] Platelets (Bld) [#/Vol] 158 10*3/uL Normal 140-440 [facility] Comment on above: Performed By: #### B GLU #### [facility] [address] [place] [address] RBC (Bld) [#/Vol] 3.93 10*6/uL Low 4.40-5.90 [facility] Comment on above: Performed By: #### B GLU #### [facility] [address] [place] [address] WBC (Bld) [#/Vol] 13.3 10*3/uL High 3.6-10.7 [facility] Comment on above: Performed By: #### B GLU #### [facility] [address] [place] [address] MRSA by PCRon 03-22-2021 Staph Aureus Sc No S. aureus detected. Negative nasal MRSA PCR has a high negative predictive value for MRSA pneumonia. Consider stopping vancomycin if no other clinical indication. Contact Antimicrobial Stewardship for further recommendations. The analytical performance characteristics of this assay have been determined by [employer] in accordance with CLIA regulations. The modifications have not been cleared or approved by the U. S. Food and Drug Administration; however, the FDA has determined that such clearance or approval is not necessary. [facility] Test Performed by [employer] [facility], [address] [place] [address] [place] [facility] POCT GlucoseOrdered By: Same lizy Morgan on 03-22-2021 Glucose [Mass/Vol] 134 mg/dL High 70 - 100 mg/dL [facility] Work Phone: Comment on above: Test performed by gl ucose meter. Results may be 10%-15% lower than serum/plasma values. (CLIA ID [id number]) Interpretation and review of laboratory results Abnormal [facility] Work Phone: [facility] Work Phone: POCT Glucoseon 03-22-2021 Test Performed by [facility], [address] [place], [place] [id number] [place] [address] LAB Glucose [Mass/Vol] 190 mg/dL High 70 - 100 mg/dL [facility] Comment on above: Test performed by gl ucose meter. Results may be 10%-15% lower than serum/plasma values. (CLIA ID [id number]) Interpretation and review of laboratory results Abnormal [facility] Test Performed by [facility] [employer] [facility], [address] LAB [facility] Glucose [Mass/Vol] 200 mg/dL High 70 - 100 mg/dL [facility] Comment on above: Test performed by gl ucose meter. Results may be 10%-15% lower than serum/plasma values. (CLIA ID [id number]) Interpretation and review of laboratory results Abnormal [facility] Test Performed by [facility], [address] [address] [address] [facility] Glucose [Mass/Vol] 181 mg/dL High 70 - 100 mg/dL [facility] Comment on above: Test performed by gl ucose meter. Results may be 10%-15% lower than serum/plasma values. (CLIA ID [id number]) Interpretation and review of laboratory results Abnormal [facility] Test Performed by [facility], [address], [place], [place] [address] [place] [facility] Glucose [Mass/Vol] 186 mg/dL High 70 - 100 mg/dL [facility] Comment on above: Test performed by gl ucose meter. Results may be 10%-15% lower than serum/plasma values. (CLIA ID [id number]) Interpretation and review of laboratory results Abnormal [facility] Test Performed by [facility], [address], [place], [place] [address] [place] [facility] Procalcitoninon 03-22-2021 Procalcitonin 0.09 ng/mL Normal 0.00-0.09 [facility] [employer] [facility] Comment on above: Performed By: #### H EMD, BMP3 #### [facility] [address] [place] [address] Interpretation See Below [facility] Comment on above: PCT <0.50 = Low risk of severe sepsis and/or septic shock. PCT >2.00 = High risk of severe sepsis and/or septic shock. Procalcitonin 0.09 ng/mL 0.00 - 0.09 ng/mL [facility] Test Performed by [facility] [employer] [facility], [address] [place], [place] [id number] [place] [address] LAB [facility] Staph Aureus Complete Nasalo n 03-22-2021 Staph Aureus Complete Nasal Staph Screen --> Status: F No S. aureus detected. Negative nasal MRSA PCR has a high negative predictive value for MRSA pneumonia. Consider stopping vancomycin if no other clinical indication. Contact Antimicrobial Stewardship for further recommendations. The analytical performance characteristics of this assay have been determined by [employer] in accordance with CLIA regulations. The modifications [...] of this assay have been determined by [employer] in accordance with CLIA regulations. The modifications have not been cleared or approved by the U. S. Food and Drug Administration; however, the FDA has determined that such clearance or approval is not necessary. Normal [facility] Comment on above: Performed By: #### S APCR ####[facility] [place] [address] Vancomycin Troughon 03-22-20 21 Vancomycin Trough 8.1 ug/mL Low 15.0-20.0 [facility] Comment on above: Result Comment: . Performed By: #### B GLU #### [facility] [address] [place] [address] Vancomycin, Troughon 021 Interpretation and review of laboratory results Abnormal [facility] Vancomycin Tr 8.1 ug/mL Low 15.0 - 20.0 ug/mL [facility] Comment on above: . Test Performed by [facility], [address] [place] [address] [place] [facility] Basic Metabolic Panelon 03-02 Anion gap [Moles/Vol] 7 mmol/L Normal 3-13 [facility] Comment on above: Performed By: #### H MAYKEL BMP3 #### [facility] [address] [place] [address] Calcium [Mass/Vol] 8.1 mg/dL Low 8.4-10.4 [facility] Comment on above: Performed By: #### H MAYKEL BMP3 #### [facility] [address] [place] [address] CO2 [Moles/Vol] 26 mmol/L Normal 22-[address] [facility] Comment on above: Performed By: #### H MAYKEL BMP3 #### [facility] [address] [place] [address] Glucose [Mass/Vol] 156 mg/dL High 70-100 [facility] Comment on above: Performed By: #### H EMDF, BMP3 #### [facility] [address] [place] [address] Urea nitrogen [Mass/Vol] 19 mg/dL High 7-17 [facility] Comment on above: Performed By: #### H MAYKEL, BMP3 #### [facility] [address] [place] [address] Creatinine [Mass/Vol] 0.53 mg/dL Normal 0.52-1.25 [facility] Comment on above: Performed By: #### H MAYKEL BMP3 #### [facility] [address] [place] [address] eGFR OTHER > 90.0 Normal >60 [facility] Comment on above: Result Comment: KDIG O [...] Performed By: #### H MAYKEL BMP3 #### [facility] [address] [place] [address] GFR/1.73 sq M.predicted among blacks MDRD (S/P/Bld) [Vol rate/Area] mL/min/{1.73_m2} Normal >60 [facility] Comment on above: Performed By: #### Kerri BRAR BMP3 #### [facility] [address] [place] [address] Chloride [Moles/Vol] 103 mmol/L Normal 98-107 [facility] Comment on above: Performed By: #### H MAYKEL BMP3 #### [facility] [address] [place] [address] Potassium [Moles/Vol] 3.4 mmol/L Low 3.5-5.1 [facility] Comment on above: Performed By: #### Kerri BRAR BMP3 #### [facility] [address] [place] [address] Sodium [Moles/Vol] 136 mmol/L Normal 135-145 [facility] Comment on above: Performed By: #### H EMD, BMP3 #### [facility] [address] [place] [address] Basic Metabolic Panel w/ Ref marciano to MGon 03-21-2021 Anion gap [Moles/Vol] 7 mmol/L 3 - 13 mmol/L [employer] Work Phone: Calcium [Mass/Vol] 8.1 mg/dL Low 8.4 - 10. 4 mg/dL [facility] Work Phone: Chloride [Moles/Vol] 103 mmol/L 98 - 10 7 mmol/L [facility] Work Phone: CO2 [Moles/Vol] 26 mmol/L 22 - 30 mmol/L [facility] Work Phone: Creatinine [Mass/Vol] 0.53 mg/dL 0.52 - 1.25 mg/dL [employer] Work Phone: EGFR IF NonAfrican Norwegian >90.0 >60 mL/min [employer] Work Phone: Comment on above: KDIGO guidelines [...] MDRD (S/P/Bld) [Vol rate/Area] mL/min/{1.73_m2} >60 mL/min [facility] Work Phone: Glucose [Mass/Vol] 156 mg/dL High 70 - 100 mg/dL [employer] Work Phone: Interpretation and review of laboratory results Abnormal [facility] Work Phone: Potassium [Moles/Vol] 3.4 mmol/L Low 3.5 - 5.1 mmol/L [facility] Work Phone: Sodium [Moles/Vol] 136 mmol/L 135 - 145 mmol/L [facility] Work Phone: Urea nitrogen (BldV) [Mass/Vol] 19 mg/dL High 7 - 17 mg/dL [facility] Work Phone: Test Performed by [facility] [employer] [facility], [address] [place], [place] [id number] [place] [address] LAB [facility] Work Phone: CBCon 03-21-2021 Hematocrit (Bld) [Volume fraction] 35.4 % Low 40.0 - 52.0 % [facility] Work Phone: Hemoglobin.gastrointest inal spec 1 Ql (Stl) 11.9 g/dL Low 13.0 - 18.0 g/dL [facility] Work Phone: Interpretation and review of laboratory results Abnormal [facility] Work Phone: MCH (RBC) [Entitic mass] 30.5 pg 26.0 - 34.0 pg [facility] Work Phone: MCHC (RBC) [Mass/Vol] 33.7 % 32.0 - 36.0 % [facility] Work Phone: MCV (RBC) [Entitic vol] 90.6 fL 80.0 - 98.0 fL [facility] Work Phone: Platelet distribution width (Bld) [Ratio] 13.1 % 11.5 - 14.5 % [facility] Work Phone: Platelet mean volume (Bld) [Entitic vol] 9.1 fL 7.4 - 10.4 fL [facility] Work Phone: Platelets (Bld) [#/Vol] 136 10*3/uL Low 140 - 440 10*3/uL [facility] Work Phone: RBC (Bld) [#/Vol] 3.91 10*6/uL Low 4.40 - 5.9 0 10*6/uL [facility] Work Phone: WBC (Bld) [#/Vol] 7.1 10*3/uL 3.6 - 10.7 10*3/uL [facility] Work Phone: Test Performed by [facility], [address] [place] [address] [place] [facility] Work Phone: Glucose,Bedsideon 03-21-2021 Glucose [Mass/Vol] 131 mg/dL High 70-100 [facility] Comment on above: Result Comment: Test performed by glucose meter. Results may be 10%-15% lower than serum/plasma values. (CLIA ID [id number]) Performed By: #### B GLU #### [facility] [address] [place] [address] Glucose [Mass/Vol] 230 mg/dL High 70-100 [facility] Comment on above: Result Comment: Test performed by glucose meter. Results may be 10%-15% lower than serum/plasma values. (CLIA ID [id number]) Performed By: #### B GLU #### [facility] [address] [place] [address] Hemogramon 03-21-2021 Erythrocyte distribution width (RBC) [Ratio] 13.1 % Normal 11.5-14.5 [facility] Comment on above: Performed By: #### H EMDF, BMP3 #### [facility] [address] [place] [address] Hematocrit (Bld) [Volume fraction] 35.4 % Low 40.0-52.0 [facility] Comment on above: Performed By: #### H EMDF, BMP3 #### [facility] [address] [place] [address] Hemoglobin (Bld) [Mass/Vol] 11.9 g/dL Low 13.0-18.0 [facility] Comment on above: Performed By: #### H EMDF, BMP3 #### [facility] [address] [place] [address] MCH (RBC) [Entitic mass] 30.5 pg Normal 26.0-34.0 [facility] Comment on above: Performed By: #### H EMDF, BMP3 #### [facility] [address] [place] [address] MCHC 33.7 % Normal 32.0-36.0 [facility] Comment on above: Performed By: #### H EMDF, BMP3 #### [facility] [address] [place] [address] MCV (RBC) [Entitic vol] 90.6 fL Normal 80.0-98.0 [facility] Comment on above: Performed By: #### H EMDF, BMP3 #### [facility] [address] [place] [address] Platelet mean volume (Bld) [Entitic vol] 9.1 fL Normal 7.4-10.4 [facility] Comment on above: Performed By: #### H EMDF, BMP3 #### [facility] [address] [place] [address] Platelets (Bld) [#/Vol] 136 10*3/uL Low 140-440 [facility] Comment on above: Performed By: #### H EMDF, BMP3 #### [facility] [address] [place] [address] RBC (Bld) [#/Vol] 3.91 10*6/uL Low 4.40-5.90 [facility] Comment on above: Performed By: #### H EMDF, BMP3 #### [facility] [address] [place] [address] WBC (Bld) [#/Vol] 7.1 10*3/uL Normal 3.6-10.7 [facility] Comment on above: Performed By: #### H EMDF, BMP3 #### [facility] [address] [place] [address] Magnesiumon 03-21-2021 Magnesium [Mass/Vol] 2.2 mg/dL Normal 1.6-2.3 [facility] Comment on above: Performed By: #### H EMDF, BMP3 #### [facility] [address] [place] [address] Magnesium [Mass/Vol] 2.2 mg/dL 1.6 - 2 .3 mg/dL [facility] Work Phone: Test Performed by [facility], [address] [place], [place] [phone] [place] [address] LAB [facility] Work Phone: POCT Glucoseon 03-21-2021 Glucose [Mass/Vol] 131 mg/dL High 70 - 100 mg/dL [facility] Comment on above: Test performed by gl ucose meter. Results may be 10%-15% lower than serum/plasma values. (CLIA ID [id number]) Interpretation and review of laboratory results Abnormal [facility] Test Performed by [facility], [address] [place], [place] [address] [place] [address] LAB [facility] Glucose [Mass/Vol] 230 mg/dL High 70 - 100 mg/dL [facility] Comment on above: Test performed by gl ucose meter. Results may be 10%-15% lower than serum/plasma values. (CLIA ID [id number]) Interpretation and review of laboratory results Abnormal [facility] Test Performed by [facility], [address] [place], [place] [phone] [place] [address] LAB [facility] Procalcitoninon 03-21-2021 Interpretation See Below Normal [facility] Comment on above: Result Comment: PCT <0.50 = Low risk of severe sepsis and/or septic shock. PCT >2.00 = High risk of severe sepsis and/or septic shock. Performed By: #### H EMDF, BMP3 #### [facility] [address] [place] [address] Basic Metabolic Panelon 03-02 Calcium [Mass/Vol] 8.4 mg/dL Normal 8.4-10.4 [facility] Comment on above: Performed By: #### H EMDF, BMP3 #### [facility] [address] [place] [address] Anion gap [Moles/Vol] 6 mmol/L Normal 3-13 [facility] Comment on above: Performed By: #### H EMDF, BMP3 #### [facility] [address] [place] [address] CO2 [Moles/Vol] 27 mmol/L Normal 22-30 [facility] Comment on above: Performed By: #### H EMDF, BMP3 #### [facility] [address] [place] [address] Glucose [Mass/Vol] 106 mg/dL High 70-100 [facility] Comment on above: Performed By: #### H EMDF, BMP3 #### [facility] [address] [place] [address] Urea nitrogen [Mass/Vol] 14 mg/dL Normal 7-17 [facility] Comment on above: Performed By: #### H EMDF, BMP3 #### [facility] [address] [place] [address] Creatinine [Mass/Vol] 0.51 mg/dL Low 0.52-1.25 [facility] Comment on above: Performed By: #### H EMDF, BMP3 #### [facility] [address] [place] [address] eGFR OTHER > 90.0 Normal >60 [facility] Comment on above: Result Comment: KDIG O [...] Performed By: #### H EMDF, BMP3 #### [facility] [address] [place] [address] GFR/1.73 sq M.predicted among blacks MDRD (S/P/Bld) [Vol rate/Area] mL/min/{1.73_m2} Normal >60 [facility] Comment on above: Performed By: #### H EMDF, BMP3 #### [facility] [address] [place] [address] Chloride [Moles/Vol] 104 mmol/L Normal 98-107 [facility] Comment on above: Performed By: #### H EMDF, BMP3 #### [facility] [address] [place] [address] Potassium [Moles/Vol] 3.9 mmol/L Normal 3.5-5.1 [facility] Comment on above: Performed By: #### H EMDF, BMP3 #### [facility] [address] [place] [address] Sodium [Moles/Vol] 137 mmol/L Normal 135-145 [facility] Comment on above: Performed By: #### H EMDF, BMP3 #### [facility] [address] [place] [address] Anion gap [Moles/Vol] 6 mmol/L 3 - 13 mmol/L [facility] Work Phone: Calcium [Mass/Vol] 8.4 mg/dL 8.4 - 10. 4 mg/dL [facility] Work Phone: Chloride [Moles/Vol] 104 mmol/L 98 - 10 7 mmol/L [facility] Work Phone: CO2 [Moles/Vol] 27 mmol/L 22 - 30 mmol/L [facility] Work Phone: Creatinine [Mass/Vol] 0.51 mg/dL Low 0.52 - 1.25 mg/dL [facility] Work Phone: EGFR IF NonAfrican Norwegian >90.0 >60 mL/min [facility] Work Phone: Comment on above: KDIGO [...] MDRD (S/P/Bld) [Vol rate/Area] mL/min/{1.73_m2} >60 mL/min [employer] Work Phone: Glucose [Mass/Vol] 106 mg/dL High 70 - 100 mg/dL [facility] Work Phone: Interpretation and review of laboratory results Abnormal [facility] Work Phone: Potassium [Moles/Vol] 3.9 mmol/L 3.5 - 5.1 mmol/L [facility] Work Phone: Sodium [Moles/Vol] 137 mmol/L 135 - 145 mmol/L [facility] Work Phone: Urea nitrogen (BldV) [Mass/Vol] 14 mg/dL 7 - 17 mg/dL [facility] Work Phone: Test Performed by [facility], [address] [place], [place] [address] [place] [facility] Work Phone: C-Reactive Proteinon 11-20-2 021 CRP [Mass/Vol] 228.1 mg/L High 0.0-9.9 [facility] Comment on above: Result Comment: . Performed By: #### H EMDF, BMP3 #### [facility] [address] [place] [address] CRP [Mass/Vol] 228.1 mg/L High 0.0 - 9.9 mg/L [facility] Work Phone: Comment on above: . Interpretation and review of laboratory results Abnormal [employer] Work Phone: Test Performed by [employer] [facility], [address] [place], [place] [id number] [place] [address] LAB [facility] Work Phone: COVID and Resp PCR Panelon 1 05-20-2020 SARS-CoV-2 (COVID-19) RNA SHIRLEY+probe Ql (Unsp spec) COVID and Resp PCR Panel --> Status: F POSITIVE: Respiratory Syncytial Virus DETECTED. _ Expected Result: Not Detected [employer] Upper Respiratory Pathogens PCR Panel can detect the following targets: SARS-CoV-2, Adenovirus, Coronavirus 229E, Coronavirus HKU1, Coronavirus NL63, Coronavirus OC43, Human Metapneumovirus, Human Rhinovirus/Enteroviru s, Influenza A, Influenza B, Parainfluenza Virus 1, Parainfluenza Virus 2, Parainfluenza Virus 3, Parainfluenza Virus 4, Respiratory Syncytial Virus, Bordetella pertussis, Bordetella parapertussis, Chlamydia pneumoniae, Mycoplasma pneumoniae. Method: Real-time PCR. _ Expected Result: Not Detected [employer] Upper Respiratory Pathogens PCR Panel can detect the following targets: SARS-CoV-2, Adenovirus, Coronavirus 229E, Coronavirus HKU1, Coronavirus NL63, Coronavirus OC43, Human Metapneumovirus, Human Rhinovirus/Enteroviru s, Influenza A, Influenza B, Parainfluenza Virus 1, Parainfluenza Virus 2, Parainfluenza Virus 3, Parainfluenza Virus 4, Respiratory Syncytial Virus, Bordetella pertussis, Bordetella parapertussis, Chlamydia pneumoniae, Mycoplasma pneumoniae. Method: Real-time PCR. 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1955 Requested By: BRADY DESAI Order Number: [id number] Reading MD: Fei Menjivar Measurements Intervals Viola Rate: 102 P: 71 NJ: 172 QRS: -30 QRSD: 156 T: 85 QT: 412 QTc: 537 Interpretive Statements SINUS TACHYCARDIA LEFT BUNDLE BRANCH BLOCK Electronically Signed On 03-20-2021 22:47:41 EST by Fei BARNETT CARDIOLOGY Tiara, Fei Cotto MD - 03/20/2021 [facility] Test Date: 2021-03-19 Pat Name: KATHYA HOOPER Department: 1 Room: [facility] 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1955 Requested By: BRADY DESAI Order Number: [id number] Reading MD: Fei Menjivar Measurements Intervals Viola Rate: 102 P: 71 NJ: 172 QRS: -30 QRSD: 156 T: 85 QT: 412 QTc: 537 Interpretive Statements SINUS TACHYCARDIA LEFT BUNDLE BRANCH BLOCK Electronically Signed On 03-20-2021 22:47:41 EST by Fei Menjivar [facility] Work Phone: EKG 12 Lead - Chest PainOrde red By: Fei Menjivar on 03-20-2021 [employer] Work Phone: Lactic Acidon 03-20-2021 Lactate [Moles/Vol] 0.7 mmol/L Normal 0.7-2.0 [facility] Comment on above: Performed By: #### H EMD, BMP3 #### [facility] [place] [address] Lactic Acid, Plasmaon 2020 Lactate [Moles/Vol] 0.7 mmol/L 0.7 - 2. 0 mmol/L [facility] Work Phone: Test Performed by [facility], [address] [place] [address] [place], [place] [address] [place] [facility] Work Phone: PROCALCITONINon 03-20-2021 Interpretation See Below [employer] Work Phone: Comment on above: PCT <0.50 = Low risk of severe sepsis and/or septic shock. PCT >2.00 = High risk of severe sepsis and/or septic shock. Interpretation and review of laboratory results Abnormal [facility] Work Phone: Test Performed by [facility], [address] [place] [address] [place] [facility] Work Phone: Procalcitoninon 03-20-2021 Procalcitonin 0.14 ng/mL High 0.00-0.09 [facility] Work Phone: Comment on above: Performed By: #### H EMDF, BMP3 #### [facility] [address] [place] [address] Interpretation See Below Normal [facility] Comment on above: Result Comment: PCT <0.50 = Low risk of severe sepsis and/or septic shock. PCT >2.00 = High risk of severe sepsis and/or septic shock. Performed By: #### H EMDF, BMP3 #### [facility] [employer] [facility] [address] [place] [address] Troponinon 03-20-2021 Interpretation and review of laboratory results Abnormal [facility] Work Phone: Troponin I.cardiac [Mass/Vol] 0.037 ng/mL High 0.000 - 0.034 ng/mL [facility] Work Phone: Comment on above: . Test Performed by [facility], [address] [place], [place] [id number] [place] [address] LAB [facility] Work Phone: Troponin Ion 03-20-2021 Troponin I.cardiac [Mass/Vol] 0.037 ng/mL High 0.000-0.034 [facility] Comment on above: Result Comment: . Performed By: #### H EMDF, BMP3 #### [facility] [address] [place] [address] Arterial Blood Gas Respirato yasmine 03-19-2021 Base Excess 1.2 mmol/L Normal -3.0-3.0 [facility] Comment on above: Performed By: #### B GLU #### [facility] [address] [place] [address] CO2 [Moles/Vol] 25.6 mmol/L Normal 23.0-27.0 [facility] Comment on above: Performed By: #### B GLU #### [facility] [address] [place] [address] FIO2 5 Normal [facility] Comment on above: Result Comment: Perf ormed by CLIA ID: [id number] [place], [place] Performed By: #### B GLU #### [facility] [address] [place] [address] HCO3 (Bld) [Moles/Vol] 24.6 mmol/L Normal 21.0-25.0 [facility] Comment on above: Performed By: #### B GLU #### [facility] [address] [place] [address] Oxygen (Bld) [Partial pressure] 56.7 mm[Hg] Low 80.0-100.0 [facility] Comment on above: Performed By: #### B GLU #### [facility] [address] [place] [address] Oxygen saturation in Blood 91.0 % Low 95.0-100.0 [facility] Comment on above: Performed By: #### B GLU #### [facility] [address] [place] [address] pCO2 33.9 mm[Hg] Low 35.0-45.0 [facility] Comment on above: Performed By: #### B GLU #### [facility] [address] [place] [address] pH 7.468 High 7.350-7.450 [facility] Comment on above: Performed By: #### B GLU #### [facility] [address] [place] [address] Basic Metabolic Panelon 11-1 Anion gap [Moles/Vol] 9 mmol/L Normal 3-13 [facility] Comment on above: Performed By: #### B MP3, TROPN ####[facility] [place] [address] Calcium [Mass/Vol] 8.5 mg/dL Normal 8.4-10.4 [facility] Comment on above: Performed By: #### B MP3, TROPN ####[facility] [place] [address] CO2 [Moles/Vol] 26 mmol/L Normal 22-30 [facility] [facility] Comment on above: Performed By: #### B MP3, TROPN ####[facility] [place] [address] Creatinine [Mass/Vol] 0.48 mg/dL Low 0.52-1.25 [facility] Comment on above: Performed By: #### B MP3, TROPN ####[place] [address] [place] [address] eGFR OTHER > 90.0 Normal >60 [facility] Comment on above: Result Comment: KDIG O [...] tubular creatinine secretion. Performed By: #### Anamika MP3, TROPN ####[facility] [place] [address] GFR/1.73 sq M.predicted among blacks MDRD (S/P/Bld) [Vol rate/Area] mL/min/{1.73_m2} Normal >60 [facility] Comment on above: Performed By: #### B MP3, TROPN ####[facility] [place] [address] Glucose [Mass/Vol] 132 mg/dL High 70-100 [facility] Comment on above: Performed By: #### B MP3, TROPN ####[facility] [place] [address] Urea nitrogen [Mass/Vol] 16 mg/dL Normal 7-17 [facility] Comment on above: Performed By: #### B MP3, TROPN ####[facility] [place] [address] Chloride [Moles/Vol] 102 mmol/L Normal 98-107 [facility] Comment on above: Performed By: #### B MP3, TROPN ####[facility] [place] [address] Potassium [Moles/Vol] 4.1 mmol/L Normal 3.5-5.1 [facility] Comment on above: Performed By: #### B MP3, TROPN ####[facility] [place] [address] Sodium [Moles/Vol] 137 mmol/L Normal 135-145 [facility] Comment on above: Performed By: #### B MP3, TROPN ####[facility] [place] [address] Anion gap [Moles/Vol] 9 mmol/L 3 - 13 mmol/L [facility] Calcium [Mass/Vol] 8.5 mg/dL 8.4 - 10. 4 mg/dL [facility] Chloride [Moles/Vol] 102 mmol/L 98 - 10 7 mmol/L [facility] CO2 [Moles/Vol] 26 mmol/L 22 - 30 mmol/L [facility] Creatinine [Mass/Vol] 0.48 mg/dL Low 0.52 - 1.25 mg/dL [facility] EGFR IF NonAfrican Norwegian >90.0 >60 mL/min [facility] Comment on above: KDIGO guidelines pro [...] [Mass/Vol] 16 mg/dL 7 - 17 mg/dL [facility] Test Performed by [facility], [address] [place] [address] LAB [facility] CBC Auto Differentialon 03-01 Absolute Baso # 0.1 10*3/uL 0.0 - 0.2 10*3/uL [facility] Absolute Neut # 7.2 10*3/uL High 1.8 - 7.0 10*3/uL [facility] Hemoglobin.gastrointest inal spec 1 Ql (Stl) 13.1 g/dL 13.0 - 18.0 g/dL [facility] MCHC (RBC) [Mass/Vol] 33.9 % 32.0 - 36.0 % [facility] Platelet distribution width (Bld) [Ratio] 13.0 % 11.5 - 14.5 % [facility] COVID-19, Flu A/B, and RSV C omboon 03-19-2021 Influenza A by PCR Not detected [facility] Influenza B by PCR Not detected [facility] Interpretation and review of laboratory results Abnormal [facility] RSV PCR DETECTED Expected Result: Not Detected _ Method: Real-time, RT-PCR This assay was developed by [employer] and distributed under an Emergency Use Authorization (EUA) granted by the FDA for the qualitative detection of nucleic acids from SARS-CoV-2, Influenza A, Influenza B, and Respiratory Syncytial Virus. Provider and patient fact sheets can be found at https://www.fda.gov/m edia/292480/download and https://www.fda.gov/m edia/104926/download. Abnormal [facility] SARS-CoV-2 (COVID-19) RNA SHIRLEY+probe Ql (Unsp spec) Not detected [facility] Test Performed by [facility], [address] [place], [place] [address] [place] [address] LAB [facility] CR Chest Portableon 03-19-20 21 CR Chest Portable Patient Name: KATHYA HOOPER Diagnostic Radiology ACCESSION EXAM DATE/TIME PROCEDURE ORDERING PROVIDER [id number] 03/19/2021 17:10 EST CR Chest Portable [id number] BRADY WILKINS CPT code 77895 Reason For Exam (CR Chest Portable) hypoxia [...] Transcribed Date and Time: 03/19/2021 5:22 Normal [facility] ED Provider Noteon ED Provider Note Emergency Department Encounter [facility] ED Patient: Kathya Hooper : 1955 Date of Evaluation: 03/19/2021 ED Provider: Brady Desai DO Chief Complaint Chief Complaint Patient presents with ? Shortness of Breath [place] I wore appropriate PPE for the entirety of this encounter. Does this patient come from an ECF, SNF, Rehab, Fpc or other Congregate setting: yes (If yes [...] otherwise acutely negative except as in the [place]. Past History Past Medical History: Diagnosis Date [...] and Family: Not on file ? Attends Sikhism Services: Not on file ? Active Member [...] by Per NG tube route nightly BALSAM FROILAN-CASTOR OIL (VENELEX) OINT OINTMENT Apply topically every [...] TABLET T (more content not included)... [facility] Autodiffon [facility]-19 Abs Baso Cnt 0.1 10*3/uL Normal 0.0-0.2 [facility] Comment on above: Performed By: #### B GLU #### [facility] [address] [place] [address] Abs Neutrophile Cnt 7.2 10*3/uL High 1.8-7.0 [facility] Comment on above: Performed By: #### B GLU #### [facility] [address] [place] [address] Basophils/100 WBC (Bld) 0.6 % Normal 0.0-2.0 [facility] Comment on above: Performed By: #### B GLU #### [place] [address] [place] [address] Eosinophils (Bld) [#/Vol] 0.0 10*3/uL Normal 0.0-0.5 [facility] Comment on above: Performed By: #### B GLU #### [place] [address] [place] [address] Eosinophils/100 WBC (Bld) 0.2 % Low 1.0-6.0 [facility] Comment on above: Performed By: #### B GLU #### [place] [address] [place] [address] Erythrocyte distribution width (RBC) [Ratio] 13.0 % Normal 11.5-14.5 [facility] Comment on above: Performed By: #### B GLU #### [facility] [address] [place] [address] Granulocytes/100 WBC (Bld) 79.0 % Normal 40.0-80.0 [facility] Comment on above: Performed By: #### B GLU #### [facility] [address] [place] [address] Hematocrit (Bld) [Volume fraction] 38.5 % Low 40.0-52.0 [facility] Comment on above: Performed By: #### B GLU #### [facility] [address] [place] [address] Hemoglobin (Bld) [Mass/Vol] 13.1 g/dL Normal 13.0-18.0 [facility] Comment on above: Performed By: #### B GLU #### [place] [address] [place] [address] Lymphocytes (Bld) [#/Vol] 1.0 10*3/uL Normal 1.0-4.3 [facility] Comment on above: Performed By: #### B GLU #### [facility] [address] [place] [address] Lymphocytes/100 WBC (Bld) 10.8 % Low 20.0-40.0 [facility] Comment on above: Performed By: #### B GLU #### [facility] [address] [place] [address] MCH (RBC) [Entitic mass] 30.9 pg Normal 26.0-34.0 [facility] Comment on above: Performed By: #### B GLU #### [facility] [address] [place] [address] MCHC 33.9 % Normal 32.0-36.0 [facility] Comment on above: Performed By: #### B GLU #### [facility] [address] [place] [address] MCV (RBC) [Entitic vol] 91.1 fL Normal 80.0-98.0 [facility] Comment on above: Performed By: #### B GLU #### [facility] [address] [place] [address] Monocytes (Bld) [#/Vol] 0.9 10*3/uL High 0.0-0.8 [facility] Comment on above: Performed By: #### B GLU #### [facility] [address] [place] [address] Monocytes/100 WBC (Bld) 9.4 % Normal 2.0-10.0 [facility] Comment on above: Performed By: #### B GLU #### [facility] [address] [place] [address] Platelet mean volume (Bld) [Entitic vol] 9.9 fL Normal 7.4-10.4 [facility] Comment on above: Performed By: #### B GLU #### [facility] [address] [place] [address] Platelets (Bld) [#/Vol] 163 10*3/uL Normal 140-440 [facility] Comment on above: Performed By: #### B GLU #### [facility] [address] [place] [address] RBC (Bld) [#/Vol] 4.23 10*6/uL Low 4.40-5.90 [facility] Comment on above: Performed By: #### B GLU #### [facility] [address] [place] [address] WBC (Bld) [#/Vol] 9.1 10*3/uL Normal 3.6-10.7 [facility] Comment on above: Performed By: #### B GLU #### [facility] [address] [place] [address] Lactic Acidon 03-19-2021 Lactate [Moles/Vol] 2.3 mmol/L Critically high 0.7-2.0 [facility] Comment on above: Performed By: #### L ACT3 ####[facility] [place] [address] Lactic Acid, Plasmaon 2020 Lactate [Moles/Vol] 2.3 mmol/L Critically high 0.7 - 2.0 mmol/L [facility] No Panel Informationon 03-19 Interpretation and review of laboratory results Abnormal [facility] Test Performed by [facility], [facility] [address] [place], [place] [address] [place] [facility] RBC MORPHOLOGYon 03-19-2021 Poikilocytes Slight [facility] RBC (Bld) [#/Vol] ABNORMAL [facility] Tear Drop Cells Slight [facility] RBC Morphologyon 03-19-2021 Ovalocytes Slight Normal [facility] Comment on above: Performed By: #### B GLU #### [facility] [address] [place] [address] Poikilocytosis Slight Normal [facility] Comment on above: Performed By: #### B GLU #### [facility] [address] [place] [address] Polychromasia Slight Normal [facility] Comment on above: Performed By: #### B GLU #### [facility] [address] [place] [address] RBC morphology finding Nom (Bld) ABNORMAL Normal [facility] Comment on above: Performed By: #### B GLU #### [facility] [address] [place] [address] Tear Drop Forms Slight Normal [facility] Comment on above: Performed By: #### B GLU #### [facility] [address] [place] [address] Respiratory Panel, Molecular , with COVID-19 (Restricted: peds pts or suitable admitted adults)on 03-19-2021 Interpretation and review of laboratory results Abnormal [facility] Respiratory Panel Molecular, with COVID POSITIVE: Respiratory Syncytial Virus DETECTED. _ Expected Result: Not Detected [employer] Upper Respiratory Pathogens PCR Panel can detect the following targets: SARS-CoV-2, Adenovirus, Coronavirus 229E, Coronavirus HKU1, Coronavirus NL63, Coronavirus OC43, Human Metapneumovirus, Human Rhinovirus/Enteroviru s, Influenza A, Influenza B, Parainfluenza Virus 1, Parainfluenza Virus 2, Parainfluenza Virus 3, Parainfluenza Virus 4, Respiratory Syncytial Virus, Bordetella pertussis, Bordetella parapertussis, Chlamydia pneumoniae, Mycoplasma pneumoniae. Method: Real-time PCR. Abnormal [facility] Test Performed by [facility], [address] [place] [address], [place] [address] [place] [facility] SARS-CoV-2, Flu A/B and RSVo n 03-19-2021 SARS-CoV-2 (COVID-19) RNA SHIRLEY+probe Ql (Unsp spec) SARS-CoV-2 --> Status: F Not Detected. Flu A PCR --> Status: F Not Detected. Flu B PCR --> Status: F Not Detected. RSV PCR --> Status: F DETECTED Expected Result: Not Detected _ Method: Real-time, RT-PCR This assay was developed by [employer] and distributed under an Emergency Use Authorization (EUA) granted by the FDA for the qualitative detection of nucleic acids from SARS-CoV-2, Influenza A, Influenza B, and Respiratory Syncytial Virus. Provider and patient fact sheets can be found at https://www.fda.gov/m edia/317058/download and https://www.fda.gov/m edia/328277/download. Expected Result: Not Detected _ Method: Real-time, RT-PCR This assay was developed by [employer] and distributed under an Emergency Use Authorization (EUA) granted by the FDA for the qualitative detection of nucleic acids from SARS-CoV-2, Influenza A, Influenza B, and Respiratory Syncytial Virus. Provider and patient fact sheets can be found at https://www.fda.gov/m edia/933926/download and https://www.fda.gov/m edia/929566/download. Abnormal [facility] Comment on above: Performed By: #### C VFLR #### [facility] [address] [place] [address] , [address] Troponinon 03-19-2021 Troponin I.cardiac [Mass/Vol] 0.017 ng/mL 0.000 - 0.034 ng/mL [facility] Comment on above: . Test Performed by [facility], [address] [place], [place] [address] [place] [facility] Troponin Ion 03-19-2021 Troponin I.cardiac [Mass/Vol] 0.017 ng/mL Normal 0.000-0.034 [facility] Comment on above: Result Comment: . Performed By: #### B MP3, TROPN ####[facility] [place] [address] XR CHEST PORTABLEon 03-19-20 Patient Name: KATHYA HOOPER Diagnostic Radiology ACCESSION EXAM DATE/TIME PROCEDURE ORDERING PROVIDER [id number] 03/19/2021 17:10 EST CR Chest Portable [id number] -BRADY DESAI CPT code 46429 Reason For Exam (CR Chest Portable) hypoxia [...] J Transcribed Date and Time: 03/19/2021 5:22 [facility] Keshawn Simpson MD - 03/19/2021 Patient Name: KATHYA HOOPER Diagnostic Radiology ACCESSION EXAM DATE/TIME PROCEDURE ORDERING PROVIDER [id number] 03/19/2021 17:10 EST CR Chest Portable [id number] -BRADY DESAI CPT code 39776 Reason For Exam (CR Chest Portable) hypoxia [...] J Transcribed Date and Time: 03/19/2021 5:22 [facility] Work Phone: Radiology Study observation (narrative) [facility] Work Phone: XR CHEST PORTABLEOrdered By: Keshawn Simpson on 03-19-2021 [facility] Work Phone: Basic Metabolic Panelon 03-01 Calcium [Mass/Vol] 8.4 mg/dL Normal 8.4-10.4 [facility] Comment on above: Performed By: #### H MAYKEL BMP3 #### [facility] [address] [place] [address] Glucose [Mass/Vol] 110 mg/dL High 70-100 [facility] Comment on above: Performed By: #### H MAYKEL BMP3 #### [facility] [address] [place] [address] Anion gap [Moles/Vol] 7 mmol/L Normal 3-13 [facility] Comment on above: Performed By: #### H MAYKEL BMP3 #### [facility] [address] [place] [address] CO2 [Moles/Vol] 26 mmol/L Normal 22-30 [facility] Comment on above: Performed By: #### H MAYKEL BMP3 #### [facility] [address] [place] [address] Creatinine [Mass/Vol] 0.54 mg/dL Normal 0.52-1.25 [facility] Comment on above: Performed By: #### H MAYKEL BMP3 #### [facility] [address] [place] [address] eGFR OTHER > 90.0 Normal >60 [facility] Comment on above: Result Comment: KDIG O [...] Performed By: #### H MAYKEL BMP3 #### [facility] [address] [place] [address] GFR/1.73 sq M.predicted among blacks MDRD (S/P/Bld) [Vol rate/Area] mL/min/{1.73_m2} Normal >60 [facility] Comment on above: Performed By: #### H MAYKEL BMP3 #### [facility] [address] [place] [address] Urea nitrogen [Mass/Vol] 18 mg/dL High 7-17 [facility] Comment on above: Performed By: #### H MAYKEL BMP3 #### [facility] [address] [place] [address] Potassium [Moles/Vol] 3.9 mmol/L Normal 3.5-5.1 [facility] Comment on above: Performed By: #### H EMDF, BMP3 #### [facility] [address] [place] [address] Chloride [Moles/Vol] 104 mmol/L Normal 98-107 [facility] Comment on above: Performed By: #### H EMDF, BMP3 #### [facility] [address] [place] [address] Sodium [Moles/Vol] 137 mmol/L Normal 135-145 [facility] Comment on above: Performed By: #### H EMDF, BMP3 #### [facility] [address] [place] [address] Anion gap [Moles/Vol] 7 mmol/L 3 - 13 mmol/L [facility] Calcium [Mass/Vol] 8.4 mg/dL 8.4 - 10. 4 mg/dL [facility] Chloride [Moles/Vol] 104 mmol/L 98 - 10 7 mmol/L [facility] CO2 [Moles/Vol] 26 mmol/L 22 - 30 mmol/L [facility] Creatinine [Mass/Vol] 0.54 mg/dL 0.52 - 1.25 mg/dL [facility] EGFR IF NonAfrican Norwegian >90.0 >60 mL/min [facility] Comment on above: KDIGO guidelines pro [...] 110 mg/dL High 70 - 100 mg/dL [facility] Interpretation and review of laboratory results Abnormal [facility] Potassium [Moles/Vol] 3.9 mmol/L 3.5 - 5.1 mmol/L [facility] Sodium [Moles/Vol] 137 mmol/L 135 - 145 mmol/L [facility] Urea nitrogen (BldV) [Mass/Vol] 18 mg/dL High 7 - 17 mg/dL [facility] Brain Natriuretic Peptideon 03-18-2021 Interpretation and review of laboratory results Abnormal [facility] Natriuretic peptide B (Bld) [Mass/Vol] 710 pg/mL High 0 - 125 pg/mL [facility] Test Performed by [facility], [address] [place] [address] LAB [facility] CBC Auto Differentialon 03-01 Absolute Baso [...] (Stl) 13.6 g/dL 13.0 - 18.0 g/dL [facility] Interpretation and review of laboratory results [...] - 10.7 10*3/uL [facility] Test Performed by [facility], [address] LAB [facility] COVID-19, Flu A/B, and RSV C omboon 03-18-2021 Influenza A by PCR Not detected [facility] Influenza B by PCR Not detected [facility] Interpretation and review of laboratory results Abnormal [facility] RSV PCR DETECTED Expected Result: Not Detected _ Method: Real-time, RT-PCR This assay was developed by [employer] and distributed under an Emergency Use Authorization (EUA) granted by the FDA for the qualitative detection of nucleic acids from SARS-CoV-2, Influenza A, Influenza B, and Respiratory Syncytial Virus. Provider and patient fact sheets can be found at https://www.fda.gov/m edia/845785/download and https://www.fda.gov/m edia/049173/download. Abnormal [facility] SARS-CoV-2 (COVID-19) RNA SHIRLEY+probe Ql (Unsp spec) Not detected [facility] Test Performed by [facility], [address] LAB [facility] CR Chest Portableon 03-18-20 21 CR Chest Portable Patient Name: KATHYA HOOPER Diagnostic Radiology ACCESSION EXAM DATE/TIME PROCEDURE ORDERING PROVIDER [id number] 03/18/2021 15:30 EST CR Chest Portable [id number] -BOO CASTRO CPT code 35989 Reason For Exam (CR Chest Portable) sob, [...] Transcribed Date and Time: 03/18/2021 3:35 Normal [facility] CTA Chest W WO (PE study)on 03-18-2021 Patient Name: KATHYA HOOPER Computed Tomography ACCESSION EXAM DATE/TIME PROCEDURE ORDERING PROVIDER [id number] 03/18/2021 16:27 EST CTA Chest w/ + w/o [id number] -Alyson CASTRO CPT code 82744 Q9967 Reason For Exam (CTA Chest w/ + w/o Contrast) pulmonary embolus Report CTA chest with and without contrast History: chest pain Protocol: 1 mm images after IV contrast, 3D rendering performed by mi on a separate workstation No evidence of aortic dissection or pulmonary embolism. Patchy scattered bilateral lung infiltrates. Minimal left pleural effusion. No lymphadenopathy. IMPRESSION: Patchy scattered bilateral lung infiltrates. Minimal left pleural effusion. Report Dictated on --- Final --- Dictating Physician: MD MICHAELS MALAY Signed Date and Time: 03/18/2021 4:35 pm Signed by: MD MICHAELS MALAY Transcribed Date and Time: 03/18/2021 4:36 [facility] Malcolm Michaels MD - 03/18/2021 Patient Name: KATHYA HOOPER Computed Tomography ACCESSION EXAM DATE/TIME PROCEDURE ORDERING PROVIDER [id number] 03/18/2021 16:27 EST CTA Chest w/ + w/o [id number] -CASTRO, Contrast BOO CPT code 93515 Q9967 Reason For Exam (CTA Chest w/ [...] Tomography ACCESSION EXAM DATE/TIME PROCEDURE ORDERING PROVIDER [id number] 03/18/2021 16:27 EST CTA Chest w/ + w/o [id number] -CASTRO, Contrast BOO CPT code 05621 Q9967 Reason For Exam (CTA Chest w/ + w/o Contrast) pulmonary embolus Report CTA chest with and without contrast History: chest pain Protocol: 1 mm images after IV contrast, 3D rendering performed by mi on a separate workstation No evidence of aortic dissection or pulmonary embolism. Patchy scattered bilateral lung infiltrates. Minimal left pleural effusion. No lymphadenopathy. IMPRESSION: Patchy scattered bilateral lung infiltrates. Minimal left pleural effusion. Report Dictated on Final Dictating Physician: MD MICHAELS MALAY Signed Date and Time: 03/18/2021 4:35 pm Signed by: MD MICHAELS MALAY Transcribed Date and Time: 03/18/2021 4:36 Normal [facility] CTA HEAD NECK W WO CONTRASTo n 03-18-2021 [id number] Computed Tomography ACCESSION EXAM DATE/TIME PROCEDURE ORDERING PROVIDER [id number] 03/18/2021 16:26 EST CTA Head/Neck w/ + w/o [id number] alyson ARCHIBALD CPT code 04817 82457 Q9967 Reason For Exam (CTA Head/Neck w/ + w/o contrast) AMS, dysphasia and ?aphasia possibly since yesterday- very poor historian from halfway w/ unclear prior deficits - here w/ [...] on --- Final --- Dictating Physician: MD RAI WASSIM OSAMA Signed Date and Time: 03/18/2021 4:51 pm Signed by: MD RAI WASSIM OSAMA Transcribed Date and Time: 03/18/2021 4:52 BARBERTOGreyson Scott MD - 03/18/2021 Patient Name: KATHYA HOOPER Computed Tomography ACCESSION EXAM DATE/TIME PROCEDURE ORDERING PROVIDER [id number] 03/18/2021 16:26 EST CTA Head/Neck w/ + w/o [id number] -alyson CASTRO CPT code 91869 27063 Q9967 Reason For Exam (CTA Head/Neck w/ + w/o contrast) AMS, dysphasia and ?aphasia possibly since yesterday- very poor historian from halfway w/ unclear prior deficits - here w/ [...] Tomography ACCESSION EXAM DATE/TIME PROCEDURE ORDERING PROVIDER [id number] 03/18/2021 16:26 EST CTA Head/Neck w/ + w/o [id number] -alyson CASTRO CPT code 94057 09604 Q9967 Reason For Exam (CTA Head/Neck w/ + w/o contrast) AMS, dysphasia and ?aphasia possibly since yesterday- very poor historian from halfway w/ unclear prior deficits - here w/ [...] Transcribed Date and Time: 03/18/2021 4:52 Normal [facility] ED Provider Noteon ED Provider Note PIEDAD [...] patient come from an ECF, SNF, Rehab, Fpc or other Congregate setting: no (If yes to above patient needs a Covid-19 test) HPI Kathya Hooper is a 66 y.o. 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 Normal [facility] Hemogram w/ Autodiffon 03-18 Abs Baso Cnt 0.0 10*3/uL Normal 0.0-0.2 [facility] Comment on above: Performed By: #### H EMDMaurice BMP3 #### [facility] [address] [place] [address] Abs Neutrophile Cnt 7.3 10*3/uL High 1.8-7.0 [facility] Comment on above: Performed By: #### H MAYKEL BMP3 #### [facility] [address] [place] [address] Basophils/100 WBC (Bld) 0.5 % Normal 0.0-2.0 [facility] Comment on above: Performed By: #### H MAYKEL BMP3 #### [facility] [address] [place] [address] Eosinophils (Bld) [#/Vol] 0.0 10*3/uL Normal 0.0-0.5 [facility] Comment on above: Performed By: #### H MAYKEL BMP3 #### [facility] [address] [place] [address] Eosinophils/100 WBC (Bld) 0.1 % Low 1.0-6.0 [facility] Comment on above: Performed By: #### H EMDMaurice BMP3 #### [facility] [address] [place] [address] Erythrocyte distribution width (RBC) [Ratio] 12.9 % Normal 11.5-14.5 [facility] Comment on above: Performed By: #### H EMDF BMP3 #### [facility] [address] [place] [address] Granulocytes/100 WBC (Bld) 82.8 % High 40.0-80.0 [facility] Comment on above: Performed By: #### H EMDMaurice BMP3 #### [facility] [address] [place] [address] Hematocrit (Bld) [Volume fraction] 38.3 % Low 40.0-52.0 [facility] Comment on above: Performed By: #### H MAYKEL, BMP3 #### [facility] [address] [place] [address] Hemoglobin (Bld) [Mass/Vol] 13.6 g/dL Normal 13.0-18.0 [facility] Comment on above: Performed By: #### H MAYKEL BMP3 #### [facility] [address] [place] [address] Lymphocytes (Bld) [#/Vol] 0.7 10*3/uL Low 1.0-4.3 [facility] Comment on above: Performed By: #### H MAYKEL BMP3 #### [facility] [address] [place] [address] Lymphocytes/100 WBC (Bld) 7.6 % Low 20.0-40.0 [facility] Comment on above: Performed By: #### H MAYKEL BMP3 #### [facility] [address] [place] [address] MCH (RBC) [Entitic mass] 32.0 pg Normal 26.0-34.0 [facility] Comment on above: Performed By: #### H MAYKEL BMP3 #### [facility] [address] [place] [address] MCHC 35.4 % Normal 32.0-36.0 [facility] Comment on above: Performed By: #### H EMDMaurice BMP3 #### [facility] [address] [place] [address] MCV (RBC) [Entitic vol] 90.2 fL Normal 80.0-98.0 [facility] Comment on above: Performed By: #### H EMDF, BMP3 #### [facility] [address] [place] [address] Monocytes (Bld) [#/Vol] 0.8 10*3/uL Normal 0.0-0.8 [facility] Comment on above: Performed By: #### H EMDF, BMP3 #### [facility] [address] [place] [address] Monocytes/100 WBC (Bld) 9.0 % Normal 2.0-10.0 [facility] Comment on above: Performed By: #### H MAYKEL BMP3 #### [facility] [address] [place] [address] Platelet mean volume (Bld) [Entitic vol] 9.8 fL Normal 7.4-10.4 [facility] Comment on above: Performed By: #### H EMDMaurice BMP3 #### [facility] [address] [place] [address] Platelets (Bld) [#/Vol] 129 10*3/uL Low 140-440 [facility] Comment on above: Performed By: #### H MAYKEL BMP3 #### [facility] [address] [place] [address] RBC (Bld) [#/Vol] 4.24 10*6/uL Low 4.40-5.90 [facility] Comment on above: Performed By: #### H ALCIRAF BMP3 #### [facility] [address] [place] [address] WBC (Bld) [#/Vol] 8.8 10*3/uL Normal 3.6-10.7 [facility] Comment on above: Performed By: #### H EMDF, BMP3 #### [facility] [address] [place] [address] MAGNESIUMon 03-18-2021 Magnesium [Mass/Vol] 2.0 mg/dL 1.6 - 2 .3 mg/dL [facility] Magnesiumon 03-18-2021 Magnesium [Mass/Vol] 2.0 mg/dL Normal 1.6-2.3 [facility] Comment on above: Performed By: #### H MAYKEL BMP3 #### [facility] [address] [place] [address] NT pro BNPon 03-18-2021 Natriuretic peptide B (Bld) [Mass/Vol] 710 pg/mL High 0-125 [facility] Comment on above: Performed By: #### H MAYKEL BMP3 #### [facility] [address] [place] [address] No Panel Informationon 03-18 Test Performed by [facility], [address], [place], [place] [address] [facility] PROTIME/INR & PTTon 03-18-20 21 aPTT Coag (Bld) [Time] 30.7 s High 20.0 - 30.5 s [facility] Comment on above: NOTE: The therapeuti c time for Heparin anticoagulation, based on Xa activity inhibition, is an APTT of 46-80 seconds. INR Coag (Bld) [Relative time] 1.1 {INR} [facility] Comment on above: Recommended Anticoag ulant [...] Interpretation and review of laboratory results Abnormal [facility] PT Coag (PPP) [Time] 11.4 s 9.0 - 12.0 s [facility] Comment on above: . Test Performed by [facility], [address], [place], [place] [id number] [place] [address] LAB [facility] Protime AND APTTon aPTT Coag (Bld) [Time] 30.7 s High 20.0-30.5 [facility] Comment on above: Result Comment: NOTE : The therapeutic time for Heparin anticoagulation, based on Xa activity inhibition, is an APTT of 46-80 seconds. Performed By: #### H EMDF, BMP3 #### [facility] [address] [place] [address] INR 1.1 Normal 0.9-1.1 [facility] Comment on above: Result Comment: [...] Performed By: #### H MITALI BRAR #### [facility] [address] [place] [address] PT Coag (PPP) [Time] 11.4 s Normal 9.0-12.0 [facility] Comment on above: Result Comment: . Performed By: #### H KORIN BRAR3 #### [facility] [address] [place] [address] SARS-CoV-2, Flu A/B and RSVo n 03-18-2021 SARS-CoV-2 (COVID-19) RNA SHIRLEY+probe Ql (Unsp spec) SARS-CoV-2 --> Status: F Not Detected. Flu A PCR --> Status: F Not Detected. Flu B PCR --> Status: F Not Detected. RSV PCR --> Status: F DETECTED Expected Result: Not Detected _ Method: Real-time, RT-PCR This assay was developed by [employer] and distributed under an Emergency Use Authorization (EUA) granted by the FDA for the qualitative detection of nucleic acids from SARS-CoV-2, Influenza A, Influenza B, and Respiratory Syncytial Virus. Provider and patient fact sheets can be found at https://www.fda.gov/m edia/293690/download and https://www.fda.gov/m edia/753854/download. Expected Result: Not Detected _ Method: Real-time, RT-PCR This assay was developed by [employer] and distributed under an Emergency Use Authorization (EUA) granted by the FDA for the qualitative detection of nucleic acids from SARS-CoV-2, Influenza A, Influenza B, and Respiratory Syncytial Virus. Provider and patient fact sheets can be found at https://www.fda.gov/m edia/765398/download and https://www.fda.gov/m edia/982267/download. Abnormal [facility] Comment on above: Performed By: #### C VFLR #### [facility] [address] [place] [address] , [address] TS GELon 03-18-2021 TS GEL ABO Group: O Rh, Gel: POS Antibody Screen Gel: NEG Normal [facility] Comment on above: Performed By: #### T SGL #### [facility] TYPE AND SCREENon 03-18-2021 ABO Grouping O [facility] Rh Type Positive [facility] Test Performed by [facility], [address] [place], [place], [place] [address] [facility] X[facility] CHEST PORTABLEon 03-18-20 Patient Name: KATHYA HOOPER Diagnostic Radiology ACCESSION EXAM DATE/TIME PROCEDURE ORDERING PROVIDER [id number] 03/18/2021 15:30 EST CR Chest Portable [id number] [place] [address] CPT code 10269 Reason For Exam (CR Chest Portable) sob, [...] KRIKOR Transcribed Date and Time: 03/18/2021 3:35 [facility] Alejandra Munoz MD - 03/18/2021 Patient Name: KATHYA HOOPER Diagnostic Radiology ACCESSION EXAM DATE/TIME PROCEDURE ORDERING PROVIDER [id number] 03/18/2021 15:30 EST CR Chest Portable [id number] [place] [address] CPT code 03144 Reason For Exam (CR Chest Portable) sob, [...] KRIKOR Transcribed Date and Time: 03/18/2021 3:35 [facility] Work Phone: Radiology Study observation (narrative) [facility] Work Phone: XR CHEST PORTABLEOrdered By: Alejandra Munoz on 03-18-2021 [facility] Work Phone: ED Provider Noteon ED Provider Note - Attestation signed by Edwin Montejo MD at 10/31/2020 7:09 AM Emergency Medicine Attending Note This patient was seen and treated independently by the professional skateboarder. I was present and available in the emergency department when this patient was treated. Vero Montejo MD [facility] ED eMERGENCY dEPARTMENT eNCOUnter Pt Name: Kathya [...] Diagnosis Date ? TREVER (acute kidney injury) ([facility]) ? Alcohol abuse 07/08/2018 ? Anxiety ? Depression ? Fall 06/2018 ? Schizophrenia ([facility]) SURGICALHISTORY Past Surgical History: Procedure Laterality Date [...] by Per NG tube route nightly BALSAM FROILAN-CASTOR OIL (VENELEX) OINT OINTMENT Apply topically every [...] Strain: ? (more content not included)... Normal [facility] [place] GI TUBE EVALUATION W CONT RASTOrdered By: Helen Toledo on 10-30-2020 Patient Name: KATHYA HOOPER Fluoroscopy ACCESSION EXAM DATE/TIME PROCEDURE ORDERING PROVIDER [id number] 10/30/2020 15:07 EDT RF Intro Long GI Tube w/ KRISTA TOLEDO HELEN Alban Fluoro CPT code 65654 Reason For Exam (RF Intro Long GI [...] Time: 10/30/2020 4:06 [facility] Work Phone: [facility] Results From [facility] - 10/30/2020 4:07 PM EDT Patient Name: KATHYA HOOPER Fluoroscopy ACCESSION EXAM DATE/TIME PROCEDURE ORDERING PROVIDER [id number] 10/30/2020 15:07 EDT RF Intro Long GI Tube w/ KRISTA TOLEDO AMY L Fluoro CPT code 11209 Reason For Exam (RF Intro Long GI [...] J Transcribed Date and Time: 10/30/2020 4:06 [facility] Work Phone: [facility] Work Phone: RF Intro Long GI Tube w/ Flu oroon 10-30-2020 RF Intro Long GI Tube w/ Fluoro [facility]: [id number] Fluoroscopy ACCESSION EXAM DATE/TIME PROCEDURE ORDERING PROVIDER [id number] 10/30/2020 15:07 EDT RF Intro Long GI Tube w/ KRISTA TOLEDO AMY L Fluoro CPT code 65935 Reason For Exam (RF Intro Long GI [...] J Transcribed Date and Time: 10/30/2020 4:06 Normal [facility] ED Provider Noteon ED Provider Note PIEDAD [...] by Per NG tube route nightly BALSAM FROILAN-CASTOR OIL (VENELEX) OINT OINTMENT Apply topically every [...] Gatherings with Friends and Family: ? Attends Sikhism Services: ? Active Member of Clubs or [...] Soft, non-distended (more content not included)... Normal [facility] [place] GI TUBE EVALUATION W CONT RASTOrdered By: Elizabeth Moura on 09-22-2020 Patient Name: KATHYA HOOPER Fluoroscopy ACCESSION EXAM DATE/TIME PROCEDURE ORDERING PROVIDER [id number] 09/22/2020 04:09 EDT RF Intro Long GI Tube w/ 5816 -ELIZABETH MOURA CPT code 66054 Reason For Exam (RF Intro Long GI [...] JEFFREY Transcribed Date and Time: 09/22/2020 5:11 [facility] Work Phone: Jaquan, [facility] Incoming Radiology Results From [facility] - 09/22/2020 5:11 AM EDT Patient Name: KATHYA HOOPER Fluoroscopy ACCESSION EXAM DATE/TIME PROCEDURE ORDERING PROVIDER [id number] 09/22/2020 04:09 EDT RF Intro Long GI Tube w/ 58Hayley ELISABETH ELIZABETH Fluoro CPT code 72518 Reason For Exam (RF Intro Long GI [...] JEFFREY Transcribed Date and Time: 09/22/2020 5:11 [facility] Work Phone: [facility] Work Phone: RF Intro Long GI Tube w/ Flu oroon 09-22-2020 RF Intro Long GI Tube w/ Fluoro Patient Name: KATHYA HOOPER Fluoroscopy ACCESSION EXAM DATE/TIME PROCEDURE ORDERING PROVIDER [id number] 09/22/2020 04:09 EDT RF Intro Long GI Tube w/ Dylon CHRISTENSENANDA ELIZABETH Fluoro CPT code 72863 Reason For Exam (RF Intro Long GI [...] JEFFREY Transcribed Date and Time: 09/22/2020 5:11 Normal [facility] ED Provider Noteon ED Provider Note PIEDAD [...] otherwise acutely negative except as in the [place]. PAST MEDICAL HISTORY Past Medical History: Diagnosis [...] (AQUAPHOR) ointment Apply topically as needed. Balsam [place] Oil (VENELEX) OINT ointment Apply topically every [...] file Gets together: Not on file Attends zoroastrianism service: Not on file Active member of [...] for level (more content not included)... Normal [facility] GI TUBE EVALUATION W BRANDON Warner 06-26-2020 Patient [facility]: [facility] [id number] Fluoroscopy ACCESSION EXAM DATE/TIME PROCEDURE ORDERING PROVIDER [id number] 06/26/2020 20:20 EST RF Intro Long GI Tube w/ 996789 -ABELARDO RIOS CPT code 61682 Reason For Exam (RF Intro Long GI [...] Phone: [facility], [facility] Incoming Radiology Results From [facility] - 06/26/2020 9:16 PM EST Patient Name: KATHYA HOOPER Fluoroscopy ACCESSION EXAM DATE/TIME PROCEDURE ORDERING PROVIDER [id number] 06/26/2020 20:20 EST RF Intro Long GI Tube w/ [id number] -ABELARDO RIOS CPT code 48843 Reason For Exam (RF Intro Long GI [...] by: Abelardo Rios DO Authorized by: Abelardo A Gombash, DO Consent: Consent obtained: Verbal Consent given [...] of procedure: Tolerated well, no immediate complications [facility] Work Phone: RF Intro Long GI Tube w/ Flu oroon 06-26-2020 RF Intro Long GI Tube w/ Fluoro Patient Name: KATHYA HOOPER Fluoroscopy ACCESSION EXAM DATE/TIME PROCEDURE ORDERING PROVIDER [id number] 06/26/2020 20:20 EST RF Intro Long GI Tube w/ [id number] -ABELARDO RIOS CPT code 60698 Reason For Exam (RF Intro Long GI [...] Transcribed Date and Time: 06/26/2020 9:16 Normal [facility] Clinical Summary: HMSPatient IDon 05-22-2019 WOP [facility] Work Phone: Office Visit: New - 1st visi t with practice, Rm: 2on 05-22-2019 NEGATED: Highlighted rowCT scan history of the right lower extremity on 05/16/2019 at [facility] Work Phone: NEGATED: Highlighted rowTobacco smoking status NHIS current someday smoker [facility] Work Phone: NEGATED: Highlighted rowxray history of the pelvis with hip on 05/11/2019 at [facility] , of the pelvis on 05/13/2019 at [facility] Work Phone: CT LOWER EXTREMITY RIGHT WO CONTRASTOrdered By: Elizabeth Moura on 05-16-2019 Patient Name: KATHYA HOOPER ---CT--- Exam Date/Time 05/16/2019 21:10:[address] Low Ext w/o Contrast Right Ordering Physician ELIZABETH BARKER Accession Number [id number] CPT4 Codes 39155 () Reason For Exam right hip pain, [...] Time: 05/16/2019 9:24 [facility] Work Phone: Jaquan, Junaida Incoming Radiology Results From [facility] - 05/16/2019 9:24 PM EST Patient Name: KATHYA HOOPER ---CT--- Exam Date/Time 05/16/2019 21:10:[address] Low Ext w/o Contrast Right Ordering Physician Dylon PinkELIZABETH MOURA Accession Number [id number] CPT4 Codes 55980 () Reason For Exam right hip pain, [...] RISA Transcribed Date and Time: 05/16/2019 9:24 [facility] Work Phone: Differential,Body Fluidson 0 09-27-2018 Other Cells 46 % Normal [facility] Comment on above: Result Comment: Bloo dy specimen with reactive mesothelial cells and chronic inflammation with occasional hemophagocytosis. 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 [address] CULTURE AND STAIN - FLUIDon 09-25-2018 CULTURE AND STAIN - FLUID CULTURE & STAIN - FLUID --> Status: F No growth at 5 days. STAIN GRAM --> Status: F Moderate polymorphonuclear cells/lpf. Moderate mononuclear cells/lpf No organisms seen. Cytocentrifugation performed. Moderate mononuclear cells/lpf No organisms seen. Cytocentrifugation performed. Normal [facility] Comment on above: Performed By: #### H EMDF, PT, BMP3M, PHOS3, MG3, CK3 #### [facility] [address] [place] [address] #### VD25H #### [facility] [address] [place] [address] Cell Count,Body Fluidon 05-2 Nucleated Cells 2391 {cells}/uL Normal [facility] Comment on above: Performed By: #### H EMDF, PT, BMP3M, PHOS3, MG3, CK3 #### [place] [address] [address] [place], [place] #### VD25H #### [facility] [address] [place] [address] RBC [place] [address] {RBC}/uL Normal [facility] Comment on above: Performed By: #### H EMDF, PT, BMP3M, PHOS3, MG3, CK3 #### [place] [address] [place], [place] #### VD25H #### [place] [address] [place] [address] Fluid Type Thoracentesis Normal [facility] Comment on above: Performed By: #### H EMDF, PT, BMP3M, PHOS3, MG3, CK3 #### [address] [place] [address] [place], [place] #### VD25H #### [facility] [address] [place] [address] Differential,Body Fluidson 0 09-25-2018 Lymphocytes/100 WBC (Bld) 28 % Normal [facility] Comment on above: Performed By: #### H EMDF, PT, BMP3M, PHOS3, MG3, CK3 #### [place] [address] [place], [place] #### VD25H #### [facility] [address] [place] [address] Monocytes/100 WBC (Bld) 1 % Normal [facility] Comment on above: Performed By: #### H EMDF, PT, BMP3M, PHOS3, MG3, CK3 #### [place] [address] [place], [place] #### VD25H #### [place] [address] [place] [address] Neutrophils/100 WBC (Bld) 25 % Normal [facility] Comment on above: Performed By: #### H EMDF, PT, BMP3M, PHOS3, MG3, CK3 #### [place] [address] [place], [place] #### VD25H #### [facility] [address] [place] [address] Cells Counted for Diff 100 Normal [facility] Comment on above: Performed By: #### H EMDF, PT, BMP3M, PHOS3, MG3, CK3 #### [place] [address] [place], [place] #### VD25H #### [facility] [address] [place] [address] LDH, Body Fluidon 09-25-2018 LDH, Body Fluid 174 U/L Normal No [facility] Comment on above: Performed By: #### H EMDF, PT, BMP3M, PHOS3, MG3, CK3 #### [place] [address] [place], [place] #### VD25H #### [facility] [address] [place] [address] Protein, Total Body Fluidon 09-25-2018 Protein,Total-Body Fld 3.4 g/dL Normal No Range [facility] Comment on above: Performed By: #### H EMDF, PT, BMP3M, PHOS3, MG3, CK3 #### [place] [address] [place], [place] #### VD25H #### [facility] [address] [place] [address] US Thora-Aspir Pleura w/ Evelin geon 09-25-2018 US Thora-Aspir Pleura w/ Image Patient Name: KATHYA HOOPER Ultrasound Exam Date/Time 09/25/2018 13:23:41 EDT Exam US Thora-Aspir Pleura w/ Image Ordering Physician SALO DAVIS Accession Number [id number] CPT4 Codes 26938 () Reason For Exam pleural effusion Report [...] the lab for analysis. Report Dictated on Workstation: Exie Final Dictated: 09/25/2018 3:07 pm Dictating Physician: KRISTA DE LA VEGA JENNIFER Signed Date and Time: 09/25/2018 3:08 pm Signed by: KRISTA DE LA VEGA JENNIFER Transcribed Date and Time: 09/25/2018 3:07 [facility] CULTURE MYCOBACTERIAon 09-03 CULTURE MYCOBACTERIA CULTURE MYCOBACTERI A --> Status: F No acid-fast bacilli isolated after 6 weeks incubation. [facility] Comment on above: Performed By: #### H EMDF, PT, BMP3M, PHOS3, MG3, CK3 #### [facility] [address] [place] [address] #### VD25H #### [facility] [address] [place] [address] CULTURE URINEon 08-23-2018 CULTURE URINE CULTURE URINE --> Status: F No growth (<1,000 CFU/ml). [facility] Comment on above: Order Comment: Speci men Source Comment:Urine, clean catch Performed By: #### H EMDF, PT, BMP3M, PHOS3, MG3, CK3 #### [facility] [employer] [facility] [address] [place] [address] #### VD25H #### [facility] [address] [place] [address] CR Chest Portableon 08-23-19 19 CR Chest Portable Patient Name: KATHYA HOOPER Diagnostic Radiology Exam Date/Time 08/22/2018 07:07:07 EDT Exam CR Chest Portable Ordering Physician HIRAM ONEIL Accession Number [id number] CPT4 Codes 75114 () Reason For Exam dyspnea Report Portable [...] Transcribed Date and Time: 08/22/2018 7:31 Normal [facility] [employer] [facility] Glucose,Bedsideon 08-22-2018 Glucose mass conc 127 mg/dL High 70-100 [facility] Comment on above: Result Comment: Test performed by glucose meter. Results may be 10%-15% lower than serum/plasma values. (CLIA ID [id number]) Performed By: #### H EMDF, PT, BMP3M, PHOS3, MG3, CK3 #### [facility] [employer] [facility] [address] [place] [address] #### VD25H #### [facility] [employer] [facility] [address] [place] [address] Urinalysis,Macroon 9 Appearance Nom (U) clear Normal Clear [facility] Comment on above: Performed By: #### H EMDF, PT, BMP3M, PHOS3, MG3, CK3 #### [address] [place], [place] #### VD25H #### [facility] [address] [place] [address] Bilirubin,Ur Negative Normal Negative [facility] Comment on above: Performed By: #### H EMDF, PT, BMP3M, PHOS3, MG3, CK3 #### [address] #### VD25H #### [facility] [address] [place] [address] Color Nom (U) dk.yel Normal Lt. Yellow [facility] Comment on above: Performed By: #### H EMDF, PT, BMP3M, PHOS3, MG3, CK3 #### [address] #### VD25H #### [facility] [address] [place] [address] Glucose Ql (U) NORM Normal Negative [facility] Comment on above: Performed By: #### H EMDF, PT, BMP3M, PHOS3, MG3, CK3 #### [address] #### VD25H #### [facility] [address] [place] [address] Ketone,Urine Negative Normal Negative [facility] Comment on above: Performed By: #### H EMDF, PT, BMP3M, PHOS3, MG3, CK3 #### [address] #### VD25H #### [facility] [address] [place] [address] Nitrite Ql (U) Negative Normal Negative [facility] Comment on above: Performed By: #### H EMDF, PT, BMP3M, PHOS3, MG3, CK3 #### [place] [address] [place], [place] #### VD25H #### [facility] [address] [place] [address] Occult Blood,Ur Negative Normal Negative [facility] Comment on above: Performed By: #### H EMDF, PT, BMP3M, PHOS3, MG3, CK3 #### [place] [address] [place], [place] #### VD25H #### [facility] [address] [place] [address] pH (U) 8.0 Normal 5.0-8.0 [facility] Comment on above: Performed By: #### H EMDF, PT, BMP3M, PHOS3, MG3, CK3 #### [address] #### VD25H #### [place] [address] [place] [address] Protein mass conc (U) Negative Normal Negative [facility] Comment on above: Performed By: #### H EMDF, PT, BMP3M, PHOS3, MG3, CK3 #### [address] #### VD25H #### [place] [address] [place] [address] Specific [place],Urine 1.015 Normal 1.005-1.030 S [facility] Comment on above: Performed By: #### H EMDF, PT, BMP3M, PHOS3, MG3, CK3 #### [address] #### VD25H #### [place] [address] [place] [address] Urobilinogen Qn (U) 1 mg/dL Normal 0-1 [facility] Comment on above: Performed By: #### H EMDF, PT, BMP3M, PHOS3, MG3, CK3 #### [address] #### VD25H #### [facility] [address] [place] [address] WBC #/vol (Bld) Negative Normal Negative [facility] [facility] Comment on above: Performed By: #### H EMDF, PT, BMP3M, PHOS3, MG3, CK3 #### [address] [place], [place] #### VD25H #### [facility] [address] [place] [address] Basic Metabolic Panelon 04-2 Calcium mass conc 7.8 mg/dL Low 8.4-10.4 [facility] Comment on above: Performed By: #### H EMDF, PT, BMP3M, PHOS3, MG3, CK3 #### [address] #### VD25H #### [facility] [address] [place] [address] Glucose mass conc 102 mg/dL High 70-100 [facility] Comment on above: Performed By: #### H EMDF, PT, BMP3M, PHOS3, MG3, CK3 #### [address] [place], [place] #### VD25H #### [facility] [address] [place] [address] Anion gap molar conc 0 Normal [facility] Comment on above: Performed By: #### H EMDF, PT, BMP3M, PHOS3, MG3, CK3 #### [address] [place], [place] #### VD25H #### [facility] [address] [place] [address] CO2 molar conc 37 mmol/L High 22-30 [facility] Comment on above: Performed By: #### H EMDF, PT, BMP3M, PHOS3, MG3, CK3 #### [address] [place], [place] #### VD25H #### [facility] [address] [place] [address] Creatinine mass conc 0.46 mg/dL Low 0.52-1.25 [facility] Comment on above: Performed By: #### H EMDF, PT, BMP3M, PHOS3, MG3, CK3 #### [address] #### VD25H #### [facility] [address] [place] [address] GFR/1.73 sq M predicted among blacks MDRD vol rate/area (S/P/Bld) mL/min/{1.73_m2} Normal >60 [facility] Comment on above: Performed By: #### H EMDF, PT, BMP3M, PHOS3, MG3, CK3 #### [address] #### VD25H #### [place] [address] [place] [address] GFR/1.73 sq M predicted among non-blacks MDRD vol rate/area (S/P/Bld) mL/min/{1.73_m2} Normal >60 [facility] Comment on above: Result Comment: Sour ce- MDRD equation with creatinine calibration to IDMS(NKDEP) eGFR not recommended for drug dose adjustment Performed By: #### H EMDF, PT, BMP3M, PHOS3, MG3, CK3 #### [address] #### VD25H #### [facility] [address] [place] [address] Urea nitrogen mass conc 7 mg/dL Normal 7-20 S [facility] Comment on above: Performed By: #### H EMDF, PT, BMP3M, PHOS3, MG3, CK3 #### [address] #### VD25H #### [place] [address] [place] [address] Potassium molar conc 3.7 mmol/L Normal 3.5-5.1 [facility] Comment on above: Performed By: #### H EMDF, PT, BMP3M, PHOS3, MG3, CK3 #### [facility] [address] [place] [address] #### VD25H #### [facility] [address] [place] [address] Chloride molar conc 101 mmol/L Normal 98-107 [facility] Comment on above: Performed By: #### H EMDF, PT, BMP3M, PHOS3, MG3, CK3 #### [facility] [address] [place], [place] #### VD25H #### [facility] [address] [place] [address] Sodium molar conc 138 mmol/L Normal 135-145 [facility] Comment on above: Performed By: #### H EMDF, PT, BMP3M, PHOS3, MG3, CK3 #### [facility] [address] [place], [place] #### VD25H #### [facility] [address] [place] [address] CR Chest Portableon 08-22-19 CR Chest Portable Patient Name: KATHYA HOOPER Diagnostic Radiology Exam Date/Time 08/21/2018 09:46:47 EDT Exam CR Chest Portable Ordering Physician MALLORY [employer]LES Accession Number [id number] CPT4 Codes 61144 () Reason For Exam edema Report PORTABLE [...] Transcribed Date and Time: 08/21/2018 11:14 Normal [facility] CULTURE ANAEROBEon 9 CULTURE ANAEROBE CULTURE ANAEROBE --> Status: F No growth of anaerobes at 5 days. Normal [facility] Comment on above: Order Comment: or co llected Performed By: #### H EMDF, PT, BMP3M, PHOS3, MG3, CK3 #### [facility] [employer] [address] #### VD25H #### [employer] [facility] [address] [place] [address] Glucose,Bedsideon 08-21-2018 Glucose mass conc 124 mg/dL High 70-100 [facility] [employer] [facility] Comment on above: Result Comment: Test performed by glucose meter. Results may be 10%-15% lower than serum/plasma values. (CLIA ID [id number]) Performed By: #### H EMDF, PT, BMP3M, PHOS3, MG3, CK3 #### [employer] [address] [place], [place] #### VD25H #### [employer] [facility] [address] [place] [address] Glucose mass conc 135 mg/dL High 70-100 [facility] [employer] [facility] Comment on above: Result Comment: Test performed by glucose meter. Results may be 10%-15% lower than serum/plasma values. (CLIA ID [id number]) Performed By: #### H EMDF, PT, BMP3M, PHOS3, MG3, CK3 #### [facility] [address] [place] [address] #### VD25H #### [employer] [facility] [address] [place] [address] Glucose mass conc 131 mg/dL High 70-100 [facility] Comment on above: Result Comment: Test performed by glucose meter. Results may be 10%-15% lower than serum/plasma values. (CLIA ID [id number]) Performed By: #### H EMDF, PT, BMP3M, PHOS3, MG3, CK3 #### [address] [place] #### VD25H #### [facility] [address] [place] [address] Glucose mass conc 112 mg/dL High 70-100 [facility] Comment on above: Result Comment: Test performed by glucose meter. Results may be 10%-15% lower than serum/plasma values. (CLIA ID [id number]) Performed By: #### H EMDF, PT, BMP3M, PHOS3, MG3, CK3 #### [address] [place] #### VD25H #### [facility] [address] [place] [address] Basic Metabolic Panelon 07-31 Anion gap molar conc 4 Normal [facility] Comment on above: Performed By: #### H EMDF, PT, BMP3M, PHOS3, MG3, CK3 #### [address] [address] [place], [place] #### VD25H #### [facility] [address] [place] [address] Calcium mass conc 7.6 mg/dL Low 8.4-10.4 [facility] Comment on above: Performed By: #### H EMDF, PT, BMP3M, PHOS3, MG3, CK3 #### [address] [place], [place] #### VD25H #### [facility] [address] [place] [address] CO2 molar conc 36 mmol/L High 22-30 [facility] Comment on above: Performed By: #### H EMDF, PT, BMP3M, PHOS3, MG3, CK3 #### [address] [place] #### VD25H #### [facility] [address] [place] [address] Glucose mass conc 121 mg/dL High 70-100 [facility] Comment on above: Performed By: #### H EMDF, PT, BMP3M, PHOS3, MG3, CK3 #### [address] [place] #### VD25H #### [facility] [address] [place] [address] Urea nitrogen mass conc 9 mg/dL Normal 7-20 S [facility] Comment on above: Performed By: #### H EMDF, PT, BMP3M, PHOS3, MG3, CK3 #### [address] #### VD25H #### [facility] [address] [place] [address] Creatinine mass conc 0.51 mg/dL Low 0.52-1.25 [facility] Comment on above: Performed By: #### H EMDF, PT, BMP3M, PHOS3, MG3, CK3 #### [address] #### VD25H #### [facility] [address] [place] [address] GFR/1.73 sq M predicted among blacks MDRD vol rate/area (S/P/Bld) mL/min/{1.73_m2} Normal >60 [facility] Comment on above: Performed By: #### H EMDF, PT, BMP3M, PHOS3, MG3, CK3 #### [address] #### VD25H #### [facility] [address] [place] [address] GFR/1.73 sq M predicted among non-blacks MDRD vol rate/area (S/P/Bld) mL/min/{1.73_m2} Normal >60 [facility] Comment on above: Result Comment: Sour ce- MDRD equation with creatinine calibration to IDMS(NKDEP) eGFR not recommended for drug dose adjustment Performed By: #### H EMDF, PT, BMP3M, PHOS3, MG3, CK3 #### [facility] [address] [place] #### VD25H #### [facility] [address] [place] [address] Chloride molar conc 100 mmol/L Normal 98-107 [facility] Comment on above: Performed By: #### H EMDF, PT, BMP3M, PHOS3, MG3, CK3 #### [address] [address] [place], [place] #### VD25H #### [facility] [address] [place] [address] Potassium molar conc 3.3 mmol/L Low 3.5-5.1 [facility] Comment on above: Performed By: #### H EMDF, PT, BMP3M, PHOS3, MG3, CK3 #### [address] [address] [place], [place] #### VD25H #### [facility] [address] [place] [address] Sodium molar conc 140 mmol/L Normal 135-145 [facility] Comment on above: Performed By: #### H EMDF, PT, BMP3M, PHOS3, MG3, CK3 #### [address] [place] #### VD25H #### [facility] [address] [place] [address] Glucose,Bedsideon 08-20-2018 Glucose mass conc 121 mg/dL High 70-100 [facility] Comment on above: Result Comment: Test performed by glucose meter. Results may be 10%-15% lower than serum/plasma values. (CLIA ID [id number]) Performed By: #### H EMDF, PT, BMP3M, PHOS3, MG3, CK3 #### [facility] [address] [place], [place] #### VD25H #### [facility] [address] [place] [address] Glucose mass conc 127 mg/dL High 70-100 [facility] Comment on above: Result Comment: Test performed by glucose meter. Results may be 10%-15% lower than serum/plasma values. (CLIA ID [id number]) Performed By: #### H EMDF, PT, BMP3M, PHOS3, MG3, CK3 #### [address] [place] #### VD25H #### [facility] [address] [place] [address] Hep A Abs, Totalon 9 Hep A Abs, Total Negative Normal Negative [facility] Comment on above: Result Comment: Perf ormed by [employer], [address] [place] [id number] [email or web address], Moo Lay MD - Lab. Director Performed By: #### H EMDF, PT, BMP3M, PHOS3, MG3, CK3 #### [address] #### VD25H #### [facility] [address] [place] [address] Basic Metabolic Panelon 04-2 Anion gap molar conc 1 Normal [facility] Comment on above: Performed By: #### H EMDF, PT, BMP3M, PHOS3, MG3, CK3 #### [address] #### VD25H #### [facility] [address] [place] [address] Calcium mass conc 7.6 mg/dL Low 8.4-10.4 [facility] Comment on above: Performed By: #### H EMDF, PT, BMP3M, PHOS3, MG3, CK3 #### [address] [address] [place], [place] #### VD25H #### [facility] [address] [place] [address] CO2 molar conc 33 mmol/L High 22-30 [facility] Comment on above: Performed By: #### H EMDF, PT, BMP3M, PHOS3, MG3, CK3 #### [address] #### VD25H #### [facility] [address] [place] [address] Glucose mass conc 139 mg/dL High 70-100 [facility] Comment on above: Performed By: #### H EMDF, PT, BMP3M, PHOS3, MG3, CK3 #### [address] #### VD25H #### [place] [address] [place] [address] Urea nitrogen mass conc 10 mg/dL Normal 7-20 S [facility] Comment on above: Performed By: #### H EMDF, PT, BMP3M, PHOS3, MG3, CK3 #### [address] #### VD25H #### [facility] [address] [place] [address] Creatinine mass conc 0.57 mg/dL Normal 0.52-1.25 [facility] Comment on above: Performed By: #### H EMDF, PT, BMP3M, PHOS3, MG3, CK3 #### [address] #### VD25H #### [facility] [address] [place] [address] GFR/1.73 sq M predicted among blacks MDRD vol rate/area (S/P/Bld) mL/min/{1.73_m2} Normal >60 [facility] Comment on above: Performed By: #### H EMDF, PT, BMP3M, PHOS3, MG3, CK3 #### [address] #### VD25H #### [facility] [address] [place] [address] GFR/1.73 sq M predicted among non-blacks MDRD vol rate/area (S/P/Bld) mL/min/{1.73_m2} Normal >60 [facility] Comment on above: Result Comment: Sour ce- MDRD equation with creatinine calibration to IDMS(NKDEP) eGFR not recommended for drug dose adjustment Performed By: #### H EMDF, PT, BMP3M, PHOS3, MG3, CK3 #### [facility] [address] [place] #### VD25H #### [facility] [address] [place] [address] Potassium molar conc 3.4 mmol/L Low 3.5-5.1 [facility] Comment on above: Performed By: #### H EMDF, PT, BMP3M, PHOS3, MG3, CK3 #### [facility] [address] [place] #### VD25H #### [facility] [address] [place] [address] Chloride molar conc 104 mmol/L Normal 98-107 [facility] Comment on above: Performed By: #### H EMDF, PT, BMP3M, PHOS3, MG3, CK3 #### [facility] [address] [place] #### VD25H #### [facility] [address] [place] [address] Sodium molar conc 138 mmol/L Normal 135-145 [facility] Comment on above: Performed By: #### H EMDF, PT, BMP3M, PHOS3, MG3, CK3 #### [facility] [address] [place] #### VD25H #### [facility] [address] [place] [address] CULT./ST. BACTERIAon 019 CULT./ST. BACTERIA STAIN GRAM [...] 0.12 S Vancomycin(CHRISTI) = 1 S Normal [facility] [employer] [facility] Comment on above: Order Comment: or co llected Performed By: #### H EMDF, PT, BMP3M, PHOS3, MG3, CK3 #### [address], [place] #### VD25H #### [facility] [address] [place] [address] Basic Metabolic Panelon 07-31 Calcium mass conc 7.8 mg/dL Low 8.4-10.4 [facility] Comment on above: Performed By: #### H EMDF, PT, BMP3M, PHOS3, MG3, CK3 #### [address] [facility] #### VD25H #### [facility] [address] [place] [address] Glucose mass conc 104 mg/dL High 70-100 [facility] Comment on above: Performed By: #### H EMDF, PT, BMP3M, PHOS3, MG3, CK3 #### [address], [place] #### VD25H #### [facility] [address] [place] [address] Urea nitrogen mass conc 12 mg/dL Normal 7-20 S [facility] Comment on above: Performed By: #### H EMDF, PT, BMP3M, PHOS3, MG3, CK3 #### [address], [place] #### VD25H #### [facility] [address] [place] [address] Anion gap molar conc 5 Normal [facility] Comment on above: Performed By: #### H EMDF, PT, BMP3M, PHOS3, MG3, CK3 #### [address], [place] #### VD25H #### [facility] [address] [place] [address] CO2 molar conc 26 mmol/L Normal 22-30 [facility] Comment on above: Performed By: #### H EMDF, PT, BMP3M, PHOS3, MG3, CK3 #### [address] #### VD25H #### [facility] [address] [place] [address] Creatinine mass conc 0.61 mg/dL Normal 0.52-1.25 [facility] Comment on above: Performed By: #### H EMDF, PT, BMP3M, PHOS3, MG3, CK3 #### [address] #### VD25H #### [facility] [address] [place] [address] GFR/1.73 sq M predicted among blacks MDRD vol rate/area (S/P/Bld) mL/min/{1.73_m2} Normal >60 [facility] Comment on above: Performed By: #### H EMDF, PT, BMP3M, PHOS3, MG3, CK3 #### [address] #### VD25H #### [place] [address] [place] [address] GFR/1.73 sq M predicted among non-blacks MDRD vol rate/area (S/P/Bld) mL/min/{1.73_m2} Normal >60 [facility] Comment on above: Result Comment: Sour ce- MDRD equation with creatinine calibration to IDMS(NKDEP) eGFR not recommended for drug dose adjustment Performed By: #### H EMDF, PT, BMP3M, PHOS3, MG3, CK3 #### [address] #### VD25H #### [facility] [address] [place] [address] Chloride molar conc 107 mmol/L Normal 98-107 [facility] Comment on above: Performed By: #### H EMDF, PT, BMP3M, PHOS3, MG3, CK3 #### [address] #### VD25H #### [place] [address] [place] [address] Potassium molar conc 3.4 mmol/L Low 3.5-5.1 [facility] Comment on above: Performed By: #### H EMDF, PT, BMP3M, PHOS3, MG3, CK3 #### [facility] [address] [place] #### VD25H #### [facility] [address] [place] [address] Sodium molar conc 138 mmol/L Normal 135-145 [facility] Comment on above: Performed By: #### H EMDF, PT, BMP3M, PHOS3, MG3, CK3 #### [address] #### VD25H #### [facility] [address] [place] [address] Glucose,Bedsideon 08-18-2018 Glucose mass conc 113 mg/dL High 70-100 [facility] Comment on above: Result Comment: Test performed by glucose meter. Results may be 10%-15% lower than serum/plasma values. (CLIA ID [id number]) Performed By: #### H EMDF, PT, BMP3M, PHOS3, MG3, CK3 #### [address] #### VD25H #### [facility] [address] [place] [address] Hemogram w/ Autodiffon 08-18 Erythrocyte distribution width Ratio (RBC) 14.4 % Normal 11.5-14.5 [facility] Comment on above: Performed By: #### H EMDF, PT, BMP3M, PHOS3, MG3, CK3 #### [address] #### VD25H #### [facility] [address] [place] [address] Hematocrit Volume Fraction (Bld) 29.3 % Low 40.0-52.0 [facility] Comment on above: Performed By: #### H EMDF, PT, BMP3M, PHOS3, MG3, CK3 #### [address] #### VD25H #### [facility] [address] [place] [address] Hemoglobin mass conc (Bld) 9.8 g/dL Low 13.0-18.0 [facility] Comment on above: Performed By: #### H EMDF, PT, BMP3M, PHOS3, MG3, CK3 #### [address] [place], [place] #### VD25H #### [facility] [address] [facility] [address] MCH Entitic mass (RBC) 28.0 pg Normal 26.0-34.0 [facility] Comment on above: Performed By: #### H EMDF, PT, BMP3M, PHOS3, MG3, CK3 #### [address] #### VD25H #### [facility] [address] [place] [address] MCHC mass conc (RBC) 33.4 % Normal 32.0-36.0 [facility] Comment on above: Performed By: #### H EMDF, PT, BMP3M, PHOS3, MG3, CK3 #### [address] #### VD25H #### [facility] [address] [facility] [address] MCV Entitic volume (RBC) 84.1 fL Normal 80.0-98.0 [facility] Comment on above: Performed By: #### H EMDF, PT, BMP3M, PHOS3, MG3, CK3 #### [address] #### VD25H #### [facility] [address] [facility] [place] [address] Platelet mean volume Entitic volume (Bld) 7.9 fL Normal 7.4-10.4 [facility] Comment on above: Performed By: #### H EMDF, PT, BMP3M, PHOS3, MG3, CK3 #### [address] #### VD25H #### [facility] [address] [place] [address] Platelets #/vol (Bld) 301 10*3/uL Normal 140-440 [facility] Comment on above: Performed By: #### H EMDF, PT, BMP3M, PHOS3, MG3, CK3 #### [address] #### VD25H #### [place] [address] [place] [address] RBC #/vol (Bld) 3.49 10*6/uL Low 4.40-5.90 [facility] Comment on above: Performed By: #### H EMDF, PT, BMP3M, PHOS3, MG3, CK3 #### [address] #### VD25H #### [place] [address] [place] [address] WBC #/vol (Bld) 8.3 10*3/uL Normal 3.6-10.7 [facility] Comment on above: Performed By: #### H EMDF, PT, BMP3M, PHOS3, MG3, CK3 #### [address] #### VD25H #### [facility] [address] [place] [address] Magnesiumon 08-18-2018 Magnesium mass conc 2.0 mg/dL Normal 1.6-2.3 [facility] Comment on above: Performed By: #### H EMDF, PT, BMP3M, PHOS3, MG3, CK3 #### [address] #### VD25H #### [place] [address] [place] [address] Manual Diffon 08-18-2018 Abs Neutrophile Cnt 5.1 10*3/uL Normal 2.2-8.2 [facility] Comment on above: Performed By: #### H EMDF, PT, BMP3M, PHOS3, MG3, CK3 #### [facility] [address] [place] #### VD25H #### [facility] [address] [place] [address] Bands 3 % Normal 0-3 [facility] Comment on above: Performed By: #### H EMDF, PT, BMP3M, PHOS3, MG3, CK3 #### [address] [address] [place], [place] #### VD25H #### [facility] [address] [place] [address] Eosinophils #/vol (Bld) 0.2 10*3/uL Normal 0.0-0.5 [facility] Comment on above: Performed By: #### H EMDF, PT, BMP3M, PHOS3, MG3, CK3 #### [address] [place] #### VD25H #### [facility] [address] [place] [address] Eosinophils/100 WBC (Bld) 2 % Normal 1-6 [facility] Comment on above: Performed By: #### H EMDF, PT, BMP3M, PHOS3, MG3, CK3 #### [facility] [address] [place] #### VD25H #### [facility] [address] [place] [address] Lymphocytes #/vol (Bld) 2.1 10*3/uL Normal 1.1-4.5 [facility] Comment on above: Performed By: #### H EMDF, PT, BMP3M, PHOS3, MG3, CK3 #### [facility] [address] [place] #### VD25H #### [facility] [address] [place] [address] Lymphocytes/100 WBC (Bld) 25 % Normal 20-40 [facility] Comment on above: Performed By: #### H EMDF, PT, BMP3M, PHOS3, MG3, CK3 #### [address] [place] #### VD25H #### [facility] [address] [place] [address] Metamyelocytes 1 % Abnormal <1 [facility] Comment on above: Performed By: #### H EMDF, PT, BMP3M, PHOS3, MG3, CK3 #### [address] #### VD25H #### [facility] [address] [place] [address] Monocytes #/vol (Bld) 0.6 10*3/uL Normal 0.2-1.1 [facility] Comment on above: Performed By: #### H EMDF, PT, BMP3M, PHOS3, MG3, CK3 #### [address] #### VD25H #### [facility] [address] [place] [address] Monocytes/100 WBC (Bld) 7 % Normal 2-10 S [facility] Comment on above: Performed By: #### H EMDF, PT, BMP3M, PHOS3, MG3, CK3 #### [address] #### VD25H #### [facility] [address] [place] [address] Myelocytes 1 % Abnormal <1 [facility] Comment on above: Performed By: #### H EMDF, PT, BMP3M, PHOS3, MG3, CK3 #### [address] #### VD25H #### [facility] [address] [place] [address] Protein mass conc 2 % Abnormal <1 [facility] Comment on above: Performed By: #### H EMDF, PT, BMP3M, PHOS3, MG3, CK3 #### [address] [place], [place] #### VD25H #### [facility] [address] [place] [address] RBC morphology finding Nom (Bld) See Prev Normal [facility] Comment on above: Performed By: #### H EMDF, PT, BMP3M, PHOS3, MG3, CK3 #### [address] [place] #### VD25H #### [facility] [address] [place] [address] Seg Neutrophils 59 % Normal 40-[address] [facility] Comment on above: Performed By: #### H EMDF, PT, BMP3M, PHOS3, MG3, CK3 #### [address] [place], [place] #### VD25H #### [facility] [address] [place] [address] Abs Baso Cnt 0.0 10*3/uL Normal 0.0-0.2 [facility] Comment on above: Performed By: #### H EMDF, PT, BMP3M, PHOS3, MG3, CK3 #### [address] [place], [place] #### VD25H #### [facility] [address] [place] [address] Basophils/100 WBC (Bld) 0 % Normal 0-2 S [facility] Comment on above: Performed By: #### H EMDF, PT, BMP3M, PHOS3, MG3, CK3 #### [address] [place], [place] #### VD25H #### [facility] [address] [place] [address] Cells counted 100 Normal [facility] Comment on above: Performed By: #### H EMDF, PT, BMP3M, PHOS3, MG3, CK3 #### [address] [place], [place] #### VD25H #### [facility] [address] [place] [address] Phosphoruson 08-18-2018 Phosphate mass conc 4.6 mg/dL High 2.5-4.5 [facility] Comment on above: Performed By: #### H EMDF, PT, BMP3M, PHOS3, MG3, CK3 #### [address] [place], [place] #### VD25H #### [facility] [address] [place] [address] Basic Metabolic Panelon 07-30 Calcium mass conc 7.7 mg/dL Low 8.4-10.4 [facility] Comment on above: Performed By: #### H EMDF, PT, BMP3M, PHOS3, MG3, CK3 #### [address] #### VD25H #### [place] [address] [place] [address] Anion gap molar conc 7 Normal [facility] Comment on above: Performed By: #### H EMDF, PT, BMP3M, PHOS3, MG3, CK3 #### [address], [place] #### VD25H #### [facility] [address] [place] [address] CO2 molar conc 25 mmol/L Normal 22-30 [facility] Comment on above: Performed By: #### H EMDF, PT, BMP3M, PHOS3, MG3, CK3 #### [address], [place] #### VD25H #### [facility] [address] [place] [address] Creatinine mass conc 0.59 mg/dL Normal 0.52-1.25 [facility] Comment on above: Performed By: #### H EMDF, PT, BMP3M, PHOS3, MG3, CK3 #### [address] [address] [place] [address] #### VD25H #### [facility] [address] [place] [address] GFR/1.73 sq M predicted among blacks MDRD vol rate/area (S/P/Bld) mL/min/{1.73_m2} Normal >60 [facility] Comment on above: Performed By: #### H EMDF, PT, BMP3M, PHOS3, MG3, CK3 #### [address] [address] #### VD25H #### [place] [address] [place] [address] GFR/1.73 sq M predicted among non-blacks MDRD vol rate/area (S/P/Bld) mL/min/{1.73_m2} Normal >60 [facility] Comment on above: Result Comment: Sour ce- MDRD equation with creatinine calibration to IDMS(NKDEP) eGFR not recommended for drug dose adjustment Performed By: #### H EMDF, PT, BMP3M, PHOS3, MG3, CK3 #### [address] #### VD25H #### [facility] [address] [place] [address] Glucose mass conc 116 mg/dL High 70-100 [facility] Comment on above: Performed By: #### H EMDF, PT, BMP3M, PHOS3, MG3, CK3 #### [address] #### VD25H #### [facility] [address] [place] [address] Urea nitrogen mass conc 12 mg/dL Normal 7-20 S [facility] Comment on above: Performed By: #### H EMDF, PT, BMP3M, PHOS3, MG3, CK3 #### [address] #### VD25H #### [facility] [address] [place] [address] Potassium molar conc 3.2 mmol/L Low 3.5-5.1 [facility] Comment on above: Performed By: #### H EMDF, PT, BMP3M, PHOS3, MG3, CK3 #### [facility] [address] [place] [address] #### VD25H #### [facility] [address] [place] [address] Sodium molar conc 138 mmol/L Normal 135-145 [facility] Comment on above: Performed By: #### H EMDF, PT, BMP3M, PHOS3, MG3, CK3 #### [facility] [address] [place] [address] #### VD25H #### [facility] [address] [place] [address] Chloride molar conc 106 mmol/L Normal 98-107 [facility] Comment on above: Performed By: #### H EMDF, PT, BMP3M, PHOS3, MG3, CK3 #### [facility] [address] [place] [address] #### VD25H #### [facility] [address] [place] [address] CR Chest Portableon 08-18-19 19 CR Chest Portable Patient Name: KATHYA HOOPER Diagnostic Radiology Exam Date/Time 08/17/2018 17:54:46 EDT Exam CR Chest Portable Ordering Physician SALO DAVIS Accession Number [id number] CPT4 Codes 53032 () Reason For Exam line placement Report [...] Transcribed Date and Time: 08/17/2018 6:05 Normal [facility] CR Chest Portable Patient Name: KATHYA HOOPER Diagnostic Radiology Exam Date/Time 08/17/2018 06:11:03 EDT Exam CR Chest Portable Ordering Physician ETIENNE VELÁSQUEZ KATHYA Costa Accession Number [id number] CPT4 Codes 45899 () Reason For Exam follow left pleural [...] Transcribed Date and Time: 08/17/2018 7:16 Normal [facility] Ferritinon 08-17-2018 Ferritin mass conc 1100 ng/mL High 18-464 [facility] Comment on above: Performed By: #### H EMDF, PT, BMP3M, PHOS3, MG3, CK3 #### [facility] [address] [place] [address] #### VD25H #### [facility] [address] [place] [address] Folateon 08-17-2018 Folate 15.1 ng/mL Normal 2.8-20.0 [facility] Comment on above: Performed By: #### H EMDF, PT, BMP3M, PHOS3, MG3, CK3 #### [facility] [address] [place] [address] #### VD25H #### [facility] [address] [place] [address] Glucose,Bedsideon 08-17-2018 Glucose mass conc 133 mg/dL High 70-100 [facility] Comment on above: Result Comment: Test performed by glucose meter. Results may be 10%-15% lower than serum/plasma values. (CLIA ID [id number]) Performed By: #### H EMDF, PT, BMP3M, PHOS3, MG3, CK3 #### [address] #### VD25H #### [facility] [employer] [facility] [address] [place] [address] Hemoglobin A1Con 08-17-2018 Hemoglobin A1c/Hemoglobin.total mass fraction (Bld) 117 mg/dL Normal [facility] Comment on above: Performed By: #### H EMDF, PT, BMP3M, PHOS3, MG3, CK3 #### [address] [address] #### VD25H #### [facility] [address] [place] [address] Hemoglobin A1c/Hemoglobin.total mass fraction (Bld) 5.7 % Normal 4.0-5.7 [facility] Comment on above: Result Comment: --Hg bA1C levels may not be accurate in patients who have renal disease, received recent blood transfusions, are anemic, or who have dyshemoglobinemia. Performed By: #### H EMDF, PT, BMP3M, PHOS3, MG3, CK3 #### [facility] [employer] [address] [address] #### VD25H #### [facility] [address] [place] [address] Hemogram w/ Autodiffon 08-17 Erythrocyte distribution width Ratio (RBC) 14.3 % Normal 11.5-14.5 [facility] Comment on above: Performed By: #### H EMDF, PT, BMP3M, PHOS3, MG3, CK3 #### [facility] [address] [place], [place] #### VD25H #### [facility] [address] [place] [address] Hematocrit Volume Fraction (Bld) 29.1 % Low 40.0-52.0 [facility] Comment on above: Performed By: #### H EMDF, PT, BMP3M, PHOS3, MG3, CK3 #### [address] #### VD25H #### [facility] [address] [place] [address] Hemoglobin mass conc (Bld) 9.8 g/dL Low 13.0-18.0 [facility] Comment on above: Performed By: #### H EMDF, PT, BMP3M, PHOS3, MG3, CK3 #### [address] #### VD25H #### [facility] [address] [place] [address] MCH Entitic mass (RBC) 28.4 pg Normal 26.0-34.0 [facility] Comment on above: Performed By: #### H EMDF, PT, BMP3M, PHOS3, MG3, CK3 #### [address] #### VD25H #### [facility] [address] [place] [address] MCHC mass conc (RBC) 33.5 % Normal 32.0-36.0 [facility] Comment on above: Performed By: #### H EMDF, PT, BMP3M, PHOS3, MG3, CK3 #### [address] #### VD25H #### [facility] [address] [place] [address] MCV Entitic volume (RBC) 84.7 fL Normal 80.0-98.0 [facility] Comment on above: Performed By: #### H EMDF, PT, BMP3M, PHOS3, MG3, CK3 #### [address] #### VD25H #### [facility] [address] [place] [address] Platelet mean volume Entitic volume (Bld) 8.1 fL Normal 7.4-10.4 [facility] Comment on above: Performed By: #### H EMDF, PT, BMP3M, PHOS3, MG3, CK3 #### [address] #### VD25H #### [place] [address] [place] [address] Platelets #/vol (Bld) 281 10*3/uL Normal 140-440 [facility] Comment on above: Performed By: #### H EMDF, PT, BMP3M, PHOS3, MG3, CK3 #### [address] #### VD25H #### [facility] [address] [place] [address] RBC #/vol (Bld) 3.44 10*6/uL Low 4.40-5.90 [facility] Comment on above: Performed By: #### H EMDF, PT, BMP3M, PHOS3, MG3, CK3 #### [address] #### VD25H #### [facility] [address] [place] [address] WBC #/vol (Bld) 8.3 10*3/uL Normal 3.6-10.7 [facility] Comment on above: Performed By: #### H EMDF, PT, BMP3M, PHOS3, MG3, CK3 #### [address] #### VD25H #### [facility] [address] [place] [address] Hep B Surface Abon 9 Hep B Surface Ab < 8.0 Normal [facility] Comment on above: Result Comment: Inte rpretation: <8.0 Non-Reactive 8.0-11.9 Equivocal >= 12.0 Ab Detected Performed By: #### H EMDF, PT, BMP3M, PHOS3, MG3, CK3 #### [facility] [address] [place], [place] #### VD25H #### [facility] [address] [place] [address] Hep B Surface Agon 9 Hep B Surface Ag NOT DETECTED Normal Not-Detected [facility] Comment on above: Performed By: #### H EMDF, PT, BMP3M, PHOS3, MG3, CK3 #### [facility] [address] [place], [place] #### VD25H #### [facility] [address] [facility] [place] [address] Hep C Antibodyon 08-17-2018 Hep C Antibody NOT DETECTED Normal Not-Detected [facility] Comment on above: Result Comment: Bharti ents with DETECTED Hepatitis C Ab results should have a new specimen submitted for supplemental testing with a Hepatitis C Quantitative RNA assay (viral load), if clinically indicated. Performed By: #### H EMDF, PT, BMP3M, PHOS3, MG3, CK3 #### [facility] [address] [place], [place] #### VD25H #### [facility] [address] [place] [address] Hepatic Functionon 9 ALP enzyme act/vol 116 U/L Normal 38-126 [facility] Comment on above: Performed By: #### H EMDF, PT, BMP3M, PHOS3, MG3, CK3 #### [facility] [address] [place], [place] #### VD25H #### [facility] [address] [place] [address] ALT enzyme act/vol 370 U/L High 13-69 [facility] Comment on above: Performed By: #### H EMDF, PT, BMP3M, PHOS3, MG3, CK3 #### [facility] [address] [place] #### VD25H #### [facility] [address] [place] [address] AST enzyme act/vol 150 U/L High 15-46 [facility] Comment on above: Performed By: #### H EMDF, PT, BMP3M, PHOS3, MG3, CK3 #### [address] [place] #### VD25H #### [place] [address] [place] [address] Bilirubin mass conc 0.7 mg/dL Normal 0.2-1.3 [facility] Comment on above: Performed By: #### H EMDF, PT, BMP3M, PHOS3, MG3, CK3 #### [address] #### VD25H #### [facility] [address] [place] [address] Bilirubin.direct mass conc 0.0 mg/dL Normal 0.0-0.3 [facility] Comment on above: Performed By: #### H EMDF, PT, BMP3M, PHOS3, MG3, CK3 #### [address] [place] #### VD25H #### [facility] [address] [place] [address] Protein mass conc 5.4 g/dL Low 6.3-8.2 [facility] Comment on above: Performed By: #### H EMDF, PT, BMP3M, PHOS3, MG3, CK3 #### [address], [place] #### VD25H #### [facility] [address] [place] [address] Albumin mass conc 2.5 g/dL Low 3.5-5.0 [facility] Comment on above: Performed By: #### H EMDF, PT, BMP3M, PHOS3, MG3, CK3 #### [facility] [address] [place] #### VD25H #### [facility] [address] [place] [address] Iron AND TIBCon 08-17-2018 Saturation 14 % Low 15-50 [facility] Comment on above: Performed By: #### H EMDF, PT, BMP3M, PHOS3, MG3, CK3 #### [address] [place] #### VD25H #### [facility] [address] [place] [address] Total Iron Binding Cap. 166 ug/dL Low 261-497 [facility] Comment on above: Performed By: #### H EMDF, PT, BMP3M, PHOS3, MG3, CK3 #### [address] [place] #### VD25H #### [facility] [address] [place] [address] Iron, Total 23 ug/dL Low 49-181 [facility] Comment on above: Performed By: #### H EMDF, PT, BMP3M, PHOS3, MG3, CK3 #### [facility] [address] [place] #### VD25H #### [facility] [address] [place] [address] Magnesiumon 08-17-2018 Magnesium mass conc 2.0 mg/dL Normal 1.6-2.3 [facility] Comment on above: Performed By: #### H EMDF, PT, BMP3M, PHOS3, MG3, CK3 #### [facility] [address] [place] #### VD25H #### [facility] [address] [place] [address] Manual Diffon 08-17-2018 Abs Baso Cnt 0.1 10*3/uL Normal 0.0-0.2 [facility] Comment on above: Performed By: #### H EMDF, PT, BMP3M, PHOS3, MG3, CK3 #### [address] [place] #### VD25H #### [facility] [address] [place] [address] Abs Neutrophile Cnt 5.6 10*3/uL Normal 2.2-8.2 [facility] Comment on above: Performed By: #### H EMDF, PT, BMP3M, PHOS3, MG3, CK3 #### [address] #### VD25H #### [facility] [address] [place] [address] Anisocytosis Ql (Bld) Slight Normal [facility] Comment on above: Performed By: #### H EMDF, PT, BMP3M, PHOS3, MG3, CK3 #### [address] #### VD25H #### [facility] [address] [place] [address] Bands 9 % High 0-3 [facility] Comment on above: Performed By: #### H EMDF, PT, BMP3M, PHOS3, MG3, CK3 #### [address] #### VD25H #### [facility] [address] [place] [address] Basophils/100 WBC (Bld) 1 % Normal 0-2 S [facility] Comment on above: Performed By: #### H EMDF, PT, BMP3M, PHOS3, MG3, CK3 #### [address] #### VD25H #### [facility] [address] [place] [address] Eosinophils #/vol (Bld) 0.2 10*3/uL Normal 0.0-0.5 [facility] Comment on above: Performed By: #### H EMDF, PT, BMP3M, PHOS3, MG3, CK3 #### [facility] [address] [place] #### VD25H #### [facility] [address] [place] [address] Eosinophils/100 WBC (Bld) 3 % Normal 1-6 [facility] Comment on above: Performed By: #### H EMDF, PT, BMP3M, PHOS3, MG3, CK3 #### [address] [place] #### VD25H #### [facility] [address] [place] [address] Lymphocytes #/vol (Bld) 1.5 10*3/uL Normal 1.1-4.5 [facility] Comment on above: Performed By: #### H EMDF, PT, BMP3M, PHOS3, MG3, CK3 #### [address] [place] #### VD25H #### [facility] [address] [place] [address] Lymphocytes/100 WBC (Bld) 18 % Low 20-40 [facility] Comment on above: Performed By: #### H EMDF, PT, BMP3M, PHOS3, MG3, CK3 #### [facility] [address] [place] #### VD25H #### [facility] [address] [place] [address] Monocytes #/vol (Bld) 0.4 10*3/uL Normal 0.2-1.1 [facility] Comment on above: Performed By: #### H EMDF, PT, BMP3M, PHOS3, MG3, CK3 #### [address] [place], [place] #### VD25H #### [facility] [address] [place] [address] Monocytes/100 WBC (Bld) 5 % Normal 2-10 S [facility] Comment on above: Performed By: #### H EMDF, PT, BMP3M, PHOS3, MG3, CK3 #### [facility] [address] [place] #### VD25H #### [facility] [address] [place] [address] Myelocytes 5 % Abnormal <1 [facility] Comment on above: Performed By: #### H EMDF, PT, BMP3M, PHOS3, MG3, CK3 #### [address] [place] #### VD25H #### [facility] [address] [place] [address] Polychromasia Slight Normal [facility] Comment on above: Performed By: #### H EMDF, PT, BMP3M, PHOS3, MG3, CK3 #### [address] [place] #### VD25H #### [facility] [address] [place] [address] RBC morphology finding Nom (Bld) ABNORMAL Normal [facility] Comment on above: Performed By: #### H EMDF, PT, BMP3M, PHOS3, MG3, CK3 #### [address] #### VD25H #### [facility] [address] [place] [address] Seg Neutrophils 59 % Normal 40-[address] [facility] Comment on above: Performed By: #### H EMDF, PT, BMP3M, PHOS3, MG3, CK3 #### [address] [place] #### VD25H #### [facility] [address] [place] [address] Toxic Granulation Slight Normal [facility] Comment on above: Performed By: #### H EMDF, PT, BMP3M, PHOS3, MG3, CK3 #### [address] [place] #### VD25H #### [facility] [address] [place] [address] Cells counted 100 Normal [facility] Comment on above: Performed By: #### H EMDF, PT, BMP3M, PHOS3, MG3, CK3 #### [address] [place] #### VD25H #### [facility] [address] [place] [address] Phosphoruson 08-17-2018 Phosphate mass conc 3.9 mg/dL Normal 2.5-4.5 [facility] Comment on above: Performed By: #### H EMDF, PT, BMP3M, PHOS3, MG3, CK3 #### [address] #### VD25H #### [facility] [address] [place] [address] Triglycerideon 08-17-2018 Triglyceride mass conc 104 mg/dL Normal <150 [facility] Comment on above: Performed By: #### H EMDF, PT, BMP3M, PHOS3, MG3, CK3 #### [address] [place] #### VD25H #### [facility] [address] [place] [address] Vitamin B12on 08-17-2018 Cobalamin (Vitamin B12) mass conc 615 pg/mL Normal 239-931 [facility] Comment on above: Performed By: #### H EMDF, PT, BMP3M, PHOS3, MG3, CK3 #### [address] #### VD25H #### [facility] [address] [place] [address] Albumin, Serumon 08-16-2018 Albumin mass conc 2.6 g/dL Low 3.5-5.0 [facility] Comment on above: Performed By: #### H EMDF, PT, BMP3M, PHOS3, MG3, CK3 #### [facility] [address] [facility] [place] [address] #### VD25H #### [facility] [address] [place] [address] CR Abdomen APon 08-16-2018 CR Abdomen AP Patient Name: KATHYA HOOPER Diagnostic Radiology Exam Date/Time 08/16/2018 10:17:24 EDT Exam CR Abdomen AP Ordering Physician [id number] JOEY VILLAGRAN Accession Number [id number] CPT4 Codes 16615 () Reason For Exam dobhoff placement Report [...] Transcribed Date and Time: 08/16/2018 12:33 Normal [facility] CR Chest Portableon 08-17-19 19 CR Chest Portable Patient Name: KATHYA HOOPER Diagnostic Radiology Exam Date/Time 08/16/2018 10:17:24 EDT Exam CR Chest Portable Ordering Physician [id number] JOEY VILLAGRAN Accession Number [id number] CPT4 Codes 98893 () Reason For Exam dyspnea Report PORTABLE [...] Transcribed Date and Time: 08/16/2018 12:31 Normal [facility] Comp Panel with Mg Reflexon 08-16-2018 Calcium mass conc 7.8 mg/dL Low 8.4-10.4 [facility] Comment on above: Performed By: #### H EMDF, PT, BMP3M, PHOS3, MG3, CK3 #### [facility] [address] [place], [place] #### VD25H #### [facility] [address] [place] [address] Glucose mass conc 114 mg/dL High 70-100 [facility] Comment on above: Performed By: #### H EMDF, PT, BMP3M, PHOS3, MG3, CK3 #### [facility] [address] [place], [place] #### VD25H #### [facility] [address] [place] [address] ALP enzyme act/vol 114 U/L Normal 38-126 [facility] Comment on above: Performed By: #### H EMDF, PT, BMP3M, PHOS3, MG3, CK3 #### [facility] [address] [place], [place] #### VD25H #### [facility] [address] [place] [address] ALT enzyme act/vol 539 U/L High 13-69 [facility] Comment on above: Performed By: #### H EMDF, PT, BMP3M, PHOS3, MG3, CK3 #### [facility] [address] [place] [facility] [address] #### VD25H #### [facility] [address] [place] [address] Anion gap molar conc 4 Normal [facility] Comment on above: Performed By: #### H EMDF, PT, BMP3M, PHOS3, MG3, CK3 #### [address] [place] #### VD25H #### [facility] [address] [place] [address] AST enzyme act/vol 460 U/L High 15-46 [facility] Comment on above: Performed By: #### H EMDF, PT, BMP3M, PHOS3, MG3, CK3 #### [address] #### VD25H #### [facility] [address] [place] [address] Bilirubin mass conc 0.7 mg/dL Normal 0.2-1.3 [facility] Comment on above: Performed By: #### H EMDF, PT, BMP3M, PHOS3, MG3, CK3 #### [address] #### VD25H #### [facility] [address] [place] [address] CO2 molar conc 25 mmol/L Normal 22-30 [facility] Comment on above: Performed By: #### H EMDF, PT, BMP3M, PHOS3, MG3, CK3 #### [place] [address] [facility] #### VD25H #### [facility] [address] [place] [address] Creatinine mass conc 0.71 mg/dL Normal 0.52-1.25 [facility] Comment on above: Performed By: #### H EMDF, PT, BMP3M, PHOS3, MG3, CK3 #### [facility] [address] [place], [place] #### VD25H #### [facility] [address] [place] [address] GFR/1.73 sq M predicted among blacks MDRD vol rate/area (S/P/Bld) mL/min/{1.73_m2} Normal >60 [facility] Comment on above: Performed By: #### H EMDF, PT, BMP3M, PHOS3, MG3, CK3 #### [address] #### VD25H #### [facility] [address] [place] [address] GFR/1.73 sq M predicted among non-blacks MDRD vol rate/area (S/P/Bld) mL/min/{1.73_m2} Normal >60 [facility] Comment on above: Result Comment: Sour ce- MDRD equation with creatinine calibration to IDMS(NKDEP) eGFR not recommended for drug dose adjustment Performed By: #### H EMDF, PT, BMP3M, PHOS3, MG3, CK3 #### [address] #### VD25H #### [facility] [address] [place] [address] Protein mass conc 5.1 g/dL Low 6.3-8.2 [facility] Comment on above: Performed By: #### H EMDF, PT, BMP3M, PHOS3, MG3, CK3 #### [address] #### VD25H #### [facility] [facility] [address] [place] [address] Urea nitrogen mass conc 22 mg/dL High 7-20 [facility] Comment on above: Performed By: #### H EMDF, PT, BMP3M, PHOS3, MG3, CK3 #### [address] #### VD25H #### [facility] [address] [place] [address] Chloride molar conc 102 mmol/L Normal 98-107 [facility] Comment on above: Performed By: #### H EMDF, PT, BMP3M, PHOS3, MG3, CK3 #### [address] [place], [place] #### VD25H #### [facility] [address] [place] [address] Potassium molar conc 3.1 mmol/L Low 3.5-5.1 [facility] Comment on above: Performed By: #### H EMDF, PT, BMP3M, PHOS3, MG3, CK3 #### [address] #### VD25H #### [facility] [address] [place] [address] Sodium molar conc 131 mmol/L Low 135-145 [facility] Comment on above: Performed By: #### H EMDF, PT, BMP3M, PHOS3, MG3, CK3 #### [address] #### VD25H #### [facility] [address] [place] [address] Albumin mass conc 2.4 g/dL Low 3.5-5.0 [facility] Comment on above: Performed By: #### H EMDF, PT, BMP3M, PHOS3, MG3, CK3 #### [address] #### VD25H #### [facility] [address] [place] [address] Glucose,Bedsideon 08-16-2018 Glucose mass conc 100 mg/dL Normal 70-100 [facility] Comment on above: Result Comment: Test performed by glucose meter. Results may be 10%-15% lower than serum/plasma values. (CLIA ID [id number]) Performed By: #### H EMDF, PT, BMP3M, PHOS3, MG3, CK3 #### [facility] [address] [place] [address] #### VD25H #### [facility] [address] [place] [address] Glucose mass conc 98 mg/dL Normal 70-100 [facility] Comment on above: Result Comment: Test performed by glucose meter. Results may be 10%-15% lower than serum/plasma values. (CLIA ID [id number]) Performed By: #### H EMDF, PT, BMP3M, PHOS3, MG3, CK3 #### [facility] [address] [place] [address] #### VD25H #### [facility] [address] [place] [address] Glucose mass conc 110 mg/dL High 70-100 [facility] Comment on above: Result Comment: Test performed by glucose meter. Results may be 10%-15% lower than serum/plasma values. (CLIA ID [id number]) Performed By: #### H EMDF, PT, BMP3M, PHOS3, MG3, CK3 #### [facility] [address] [place] [address] #### VD25H #### [facility] [address] [place] [address] Glucose mass conc 113 mg/dL High 70-100 [facility] Comment on above: Result Comment: Test performed by glucose meter. Results may be 10%-15% lower than serum/plasma values. (CLIA ID [id number]) Performed By: #### H EMDF, PT, BMP3M, PHOS3, MG3, CK3 #### [facility] [address] [place] [address] #### VD25H #### [facility] [address] [place] [address] Glucose mass conc 126 mg/dL High 70-100 [facility] Comment on above: Result Comment: Test performed by glucose meter. Results may be 10%-15% lower than serum/plasma values. (CLIA ID [id number]) Performed By: #### H EMDF, PT, BMP3M, PHOS3, MG3, CK3 #### [facility] [address] [place], [place] #### VD25H #### [facility] [address] [place] [address] Hemogram w/ Autodiffon 08-16 Abs Baso Cnt 0.0 10*3/uL Normal 0.0-0.2 [facility] Comment on above: Performed By: #### H EMDF, PT, BMP3M, PHOS3, MG3, CK3 #### [address] #### VD25H #### [facility] [address] [place] [address] Abs Neutrophile Cnt 7.7 10*3/uL High 1.8-7.0 [facility] Comment on above: Performed By: #### H EMDF, PT, BMP3M, PHOS3, MG3, CK3 #### [address] #### VD25H #### [facility] [address] [place] [address] Basophils/100 WBC (Bld) 0.5 % Normal 0.0-2.0 [facility] Comment on above: Performed By: #### H EMDF, PT, BMP3M, PHOS3, MG3, CK3 #### [address] [place], [place] #### VD25H #### [facility] [address] [facility] [place] [address] Eosinophils #/vol (Bld) 0.1 10*3/uL Normal 0.0-0.5 [facility] Comment on above: Performed By: #### H EMDF, PT, BMP3M, PHOS3, MG3, CK3 #### [address] #### VD25H #### [facility] [address] [place] [address] Eosinophils/100 WBC (Bld) 1.5 % Normal 1.0-6.0 [facility] Comment on above: Performed By: #### H EMDF, PT, BMP3M, PHOS3, MG3, CK3 #### [address] #### VD25H #### [facility] [address] [place] [address] Erythrocyte distribution width Ratio (RBC) 14.4 % Normal 11.5-14.5 [facility] Comment on above: Performed By: #### H EMDF, PT, BMP3M, PHOS3, MG3, CK3 #### [address] #### VD25H #### [place] [address] [place] [address] Granulocytes/100 WBC (Bld) 79.7 % Normal 40.0-80.0 [facility] Comment on above: Performed By: #### H EMDF, PT, BMP3M, PHOS3, MG3, CK3 #### [address] #### VD25H #### [facility] [address] [place] [address] Hematocrit Volume Fraction (Bld) 27.1 % Low 40.0-52.0 [facility] Comment on above: Performed By: #### H EMDF, PT, BMP3M, PHOS3, MG3, CK3 #### [address] #### VD25H #### [facility] [address] [place] [address] Hemoglobin mass conc (Bld) 9.2 g/dL Low 13.0-18.0 [facility] Comment on above: Performed By: #### H EMDF, PT, BMP3M, PHOS3, MG3, CK3 #### [address] #### VD25H #### [facility] [address] [place] [address] Lymphocytes #/vol (Bld) 1.0 10*3/uL Normal 1.0-4.3 [facility] Comment on above: Performed By: #### H EMDF, PT, BMP3M, PHOS3, MG3, CK3 #### [address] #### VD25H #### [facility] [address] [place] [address] Lymphocytes/100 WBC (Bld) 10.0 % Low 20.0-40.0 [facility] Comment on above: Performed By: #### H EMDF, PT, BMP3M, PHOS3, MG3, CK3 #### [address] #### VD25H #### [place] [address] [place] [address] MCH Entitic mass (RBC) 28.5 pg Normal 26.0-34.0 [facility] Comment on above: Performed By: #### H EMDF, PT, BMP3M, PHOS3, MG3, CK3 #### [address] #### VD25H #### [place] [address] [place] [address] MCHC mass conc (RBC) 33.8 % Normal 32.0-36.0 [facility] Comment on above: Performed By: #### H EMDF, PT, BMP3M, PHOS3, MG3, CK3 #### [address] #### VD25H #### [facility] [address] [place] [address] MCV Entitic volume (RBC) 84.4 fL Normal 80.0-98.0 [facility] Comment on above: Performed By: #### H EMDF, PT, BMP3M, PHOS3, MG3, CK3 #### [address] #### VD25H #### [facility] [address] [place] [address] Monocytes #/vol (Bld) 0.8 10*3/uL Normal 0.0-0.8 [facility] Comment on above: Performed By: #### H EMDF, PT, BMP3M, PHOS3, MG3, CK3 #### [address] [place], [place] #### VD25H #### [facility] [address] [place] [address] Monocytes/100 WBC (Bld) 8.3 % Normal 2.0-10.0 [facility] Comment on above: Performed By: #### H EMDF, PT, BMP3M, PHOS3, MG3, CK3 #### [address] #### VD25H #### [facility] [address] [place] [address] Platelet mean volume Entitic volume (Bld) 8.4 fL Normal 7.4-10.4 [facility] Comment on above: Performed By: #### H EMDF, PT, BMP3M, PHOS3, MG3, CK3 #### [address] #### VD25H #### [facility] [address] [place] [address] Platelets #/vol (Bld) 245 10*3/uL Normal 140-440 [facility] Comment on above: Performed By: #### H EMDF, PT, BMP3M, PHOS3, MG3, CK3 #### [address] #### VD25H #### [facility] [address] [place] [address] RBC #/vol (Bld) 3.21 10*6/uL Low 4.40-5.90 [facility] Comment on above: Performed By: #### H EMDF, PT, BMP3M, PHOS3, MG3, CK3 #### [address] [place], [place] #### VD25H #### [facility] [address] [place] [address] WBC #/vol (Bld) 9.7 10*3/uL Normal 3.6-10.7 [facility] Comment on above: Performed By: #### H EMDF, PT, BMP3M, PHOS3, MG3, CK3 #### [address] [place], [place] #### VD25H #### [facility] [address] [place] [address] Magnesiumon 08-16-2018 Magnesium mass conc 2.1 mg/dL Normal 1.6-2.3 [facility] Comment on above: Performed By: #### H EMDF, PT, BMP3M, PHOS3, MG3, CK3 #### [address] #### VD25H #### [facility] [address] [place] [address] Phosphoruson 08-16-2018 Phosphate mass conc 4.4 mg/dL Normal 2.5-4.5 [facility] Comment on above: Performed By: #### H EMDF, PT, BMP3M, PHOS3, MG3, CK3 #### [address] #### VD25H #### [facility] [address] [place] [address] Potassiumon 08-16-2018 Potassium molar conc 3.5 mmol/L Normal 3.5-5.1 [facility] Comment on above: Performed By: #### H EMDF, PT, BMP3M, PHOS3, MG3, CK3 #### [address] #### VD25H #### [facility] [address] [place] [address] Procalcitoninon 08-16-2018 Protein mass conc 3.10 ng/mL Abnormal <0.10 [facility] Comment on above: Performed By: #### H EMDF, PT, BMP3M, PHOS3, MG3, CK3 #### [address] #### VD25H #### [facility] [address] [place] [address] Prothrombin Timeon 9 INR Coag RelTime (PPP) 1.1 Normal 0.9-1.1 [facility] Comment on above: Result Comment: Yefri [...] EMDF, PT, BMP3M, PHOS3, MG3, CK3 #### [address] #### VD25H #### [facility] [address] [place] [address] Prothrombin time (PT) Coag time (PPP) 11.8 s Normal 9.0-12.0 [facility] Comment on above: Result Comment: . Performed By: #### H EMDF, PT, BMP3M, PHOS3, MG3, CK3 #### [address] #### VD25H #### [facility] [address] [place] [address] US Abdomen Limitedon 019 US Abdomen Limited Patient Name: KATHYA HOOPER Ultrasound Exam Date/Time 08/16/2018 19:12:00 EDT Exam US Abdomen Limited Ordering Physician [id number] ESPINOSA Accession Number [id number] CPT4 Codes 18492 () Reason For Exam elevated transaminases Report [...] Transcribed Date and Time: 08/16/2018 7:26 Normal [facility] Glucose,Bedsideon 08-15-2018 Glucose mass conc 98 mg/dL Normal 70-100 [facility] Comment on above: Result Comment: Test performed by glucose meter. Results may be 10%-15% lower than serum/plasma values. (CLIA ID [id number]) Performed By: #### H EMDF, PT, BMP3M, PHOS3, MG3, CK3 #### [facility] [address] [place] [address] #### VD25H #### [facility] [address] [place] [address] Procalcitoninon 08-15-2018 Interpretation See Below Normal [facility] Comment on above: Result Comment: PCT <0.50 = Low risk of severe sepsis and/or septic shock. PCT >2.00 = High risk of severe sepsis and/or septic shock. Performed By: #### H EMDF, PT, BMP3M, PHOS3, MG3, CK3 #### [facility] [address] [place], [place] #### VD25H #### [facility] [address] [place] [address] CULTURE FUNGUSon 08-13-2018 CULTURE FUNGUS CULTURE FUNGUS --> Status: F No fungus isolated after 21 days. Normal [facility] Comment on above: Order Comment: Speci men Source Comment:Body Fluid Performed By: #### H EMDF, PT, BMP3M, PHOS3, MG3, CK3 #### [address] [place], [place] #### VD25H #### [facility] [address] [place] [address] Hemogram w/ Autodiffon 08-01 Abs Baso Cnt 0.2 10*3/uL Normal 0.0-0.2 [facility] Comment on above: Performed By: #### H EMDF, PT, BMP3M, PHOS3, MG3, CK3 #### [address] [place], [place] #### VD25H #### [facility] [address] [place] [address] Abs Neutrophile Cnt 14.3 10*3/uL High 1.8-7.0 [facility] Comment on above: Performed By: #### H EMDF, PT, BMP3M, PHOS3, MG3, CK3 #### [address] #### VD25H #### [facility] [address] [place] [address] Basophils/100 WBC (Bld) 1.0 % Normal 0.0-2.0 S [facility] Comment on above: Performed By: #### H EMDF, PT, BMP3M, PHOS3, MG3, CK3 #### [address] #### VD25H #### [facility] [address] [place] [address] Eosinophils #/vol (Bld) 0.4 10*3/uL Normal 0.0-0.5 [facility] Comment on above: Performed By: #### H EMDF, PT, BMP3M, PHOS3, MG3, CK3 #### [facility] [address] [place], [place] #### VD25H #### [facility] [address] [place] [address] Eosinophils/100 WBC (Bld) 2.3 % Normal 1.0-6.0 [facility] Comment on above: Performed By: #### H EMDF, PT, BMP3M, PHOS3, MG3, CK3 #### [address] #### VD25H #### [facility] [address] [place] [address] Erythrocyte distribution width Ratio (RBC) 13.7 % Normal 11.5-14.5 [facility] Comment on above: Performed By: #### H EMDF, PT, BMP3M, PHOS3, MG3, CK3 #### [address] #### VD25H #### [facility] [address] [place] [address] Granulocytes/100 WBC (Bld) 82.1 % High 40.0-80.0 [facility] Comment on above: Performed By: #### H EMDF, PT, BMP3M, PHOS3, MG3, CK3 #### [address] #### VD25H #### [facility] [address] [place] [address] Hematocrit Volume Fraction (Bld) 31.2 % Low 40.0-52.0 [facility] Comment on above: Performed By: #### H EMDF, PT, BMP3M, PHOS3, MG3, CK3 #### [address] #### VD25H #### [facility] [address] [place] [address] Hemoglobin mass conc (Bld) 10.5 g/dL Low 13.0-18.0 [facility] Comment on above: Performed By: #### H EMDF, PT, BMP3M, PHOS3, MG3, CK3 #### [address] #### VD25H #### [facility] [address] [place] [address] Lymphocytes #/vol (Bld) 1.6 10*3/uL Normal 1.0-4.3 [facility] Comment on above: Performed By: #### H EMDF, PT, BMP3M, PHOS3, MG3, CK3 #### [address] #### VD25H #### [place] [address] [place] [address] Lymphocytes/100 WBC (Bld) 9.1 % Low 20.0-40.0 [facility] Comment on above: Performed By: #### H EMDF, PT, BMP3M, PHOS3, MG3, CK3 #### [address] #### VD25H #### [facility] [address] [place] [address] MCH Entitic mass (RBC) 28.9 pg Normal 26.0-34.0 [facility] Comment on above: Performed By: #### H EMDF, PT, BMP3M, PHOS3, MG3, CK3 #### [address] #### VD25H #### [facility] [address] [place] [address] MCHC mass conc (RBC) 33.7 % Normal 32.0-36.0 [facility] Comment on above: Performed By: #### H EMDF, PT, BMP3M, PHOS3, MG3, CK3 #### [address] #### VD25H #### [facility] [address] [place] [address] MCV Entitic volume (RBC) 85.5 fL Normal 80.0-98.0 [facility] Comment on above: Performed By: #### H EMDF, PT, BMP3M, PHOS3, MG3, CK3 #### [address] #### VD25H #### [facility] [address] [place] [address] Monocytes #/vol (Bld) 1.0 10*3/uL High 0.0-0.8 [facility] Comment on above: Performed By: #### H EMDF, PT, BMP3M, PHOS3, MG3, CK3 #### [address] #### VD25H #### [facility] [address] [place] [address] Monocytes/100 WBC (Bld) 5.5 % Normal 2.0-10.0 [facility] Comment on above: Performed By: #### H EMDF, PT, BMP3M, PHOS3, MG3, CK3 #### [address] #### VD25H #### [facility] [address] [place] [address] Platelet mean volume Entitic volume (Bld) 8.0 fL Normal 7.4-10.4 [facility] Comment on above: Performed By: #### H EMDF, PT, BMP3M, PHOS3, MG3, CK3 #### [address] #### VD25H #### [facility] [address] [place] [address] Platelets #/vol (Bld) 425 10*3/uL Normal 140-440 [facility] Comment on above: Performed By: #### H EMDF, PT, BMP3M, PHOS3, MG3, CK3 #### [address], [place] #### VD25H #### [facility] [address] [place] [address] RBC #/vol (Bld) 3.65 10*6/uL Low 4.40-5.90 [facility] Comment on above: Performed By: #### H EMDF, PT, BMP3M, PHOS3, MG3, CK3 #### [address] #### VD25H #### [facility] [address] [place] [address] WBC #/vol (Bld) 17.4 10*3/uL High 3.6-10.7 [facility] Comment on above: Performed By: #### H EMDF, PT, BMP3M, PHOS3, MG3, CK3 #### [address] #### VD25H #### [facility] [address] [place] [address] Basic Metabolic Panelon 04-0 Calcium mass conc 8.3 mg/dL Low 8.4-10.4 [facility] Comment on above: Performed By: #### H EMDF, PT, BMP3M, PHOS3, MG3, CK3 #### [address] #### VD25H #### [facility] [address] [place] [address] Glucose mass conc 114 mg/dL High 70-100 [facility] Comment on above: Performed By: #### H EMDF, PT, BMP3M, PHOS3, MG3, CK3 #### [address] #### VD25H #### [facility] [address] [place] [address] Anion gap molar conc 10 Normal [facility] Comment on above: Performed By: #### H EMDF, PT, BMP3M, PHOS3, MG3, CK3 #### [address] [place], [place] #### VD25H #### [facility] [address] [place] [address] CO2 molar conc 34 mmol/L High 22-30 [facility] Comment on above: Performed By: #### H EMDF, PT, BMP3M, PHOS3, MG3, CK3 #### [address] #### VD25H #### [facility] [address] [place] [address] Creatinine mass conc 0.52 mg/dL Normal 0.52-1.25 [facility] Comment on above: Performed By: #### H EMDF, PT, BMP3M, PHOS3, MG3, CK3 #### [address] #### VD25H #### [place] [address] [place] [address] GFR/1.73 sq M predicted among blacks MDRD vol rate/area (S/P/Bld) mL/min/{1.73_m2} Normal >60 [facility] Comment on above: Performed By: #### H EMDF, PT, BMP3M, PHOS3, MG3, CK3 #### [address] #### VD25H #### [place] [address] [place] [address] GFR/1.73 sq M predicted among non-blacks MDRD vol rate/area (S/P/Bld) mL/min/{1.73_m2} Normal >60 [facility] Comment on above: Result Comment: Sour ce- MDRD equation with creatinine calibration to IDMS(NKDEP) eGFR not recommended for drug dose adjustment Performed By: #### H EMDF, PT, BMP3M, PHOS3, MG3, CK3 #### [address] #### VD25H #### [facility] [address] [place] [address] Urea nitrogen mass conc 23 mg/dL High 7-20 S [facility] Comment on above: Performed By: #### H EMDF, PT, BMP3M, PHOS3, MG3, CK3 #### [address] [place], [place] #### VD25H #### [facility] [address] [place] [address] Chloride molar conc 95 mmol/L Low 98-107 [facility] Comment on above: Performed By: #### H EMDF, PT, BMP3M, PHOS3, MG3, CK3 #### [address] [place], [place] #### VD25H #### [place] [address] [place] [address] Potassium molar conc 3.7 mmol/L Normal 3.5-5.1 [facility] Comment on above: Performed By: #### H EMDF, PT, BMP3M, PHOS3, MG3, CK3 #### [address] [place], [place] #### VD25H #### [facility] [address] [place] [address] Sodium molar conc 139 mmol/L Normal 135-145 [facility] Comment on above: Performed By: #### H EMDF, PT, BMP3M, PHOS3, MG3, CK3 #### [address] [place], [place] #### VD25H #### [facility] [address] [place] [address] Hemogram w/ Autodiffon 07-31 Abs Baso Cnt 0.2 10*3/uL Normal 0.0-0.2 [facility] Comment on above: Performed By: #### H EMDF, PT, BMP3M, PHOS3, MG3, CK3 #### [address] [place] #### VD25H #### [facility] [address] [place] [address] Abs Neutrophile Cnt 13.4 10*3/uL High 1.8-7.0 [facility] Comment on above: Performed By: #### H EMDF, PT, BMP3M, PHOS3, MG3, CK3 #### [address] #### VD25H #### [facility] [address] [place] [address] Basophils/100 WBC (Bld) 1.0 % Normal 0.0-2.0 S [facility] Comment on above: Performed By: #### H EMDF, PT, BMP3M, PHOS3, MG3, CK3 #### [address] #### VD25H #### [place] [address] [place] [address] Eosinophils #/vol (Bld) 0.5 10*3/uL Normal 0.0-0.5 [facility] Comment on above: Performed By: #### H EMDF, PT, BMP3M, PHOS3, MG3, CK3 #### [address] #### VD25H #### [place] [address] [place] [address] Eosinophils/100 WBC (Bld) 3.1 % Normal 1.0-6.0 [facility] Comment on above: Performed By: #### H EMDF, PT, BMP3M, PHOS3, MG3, CK3 #### [address] #### VD25H #### [place] [address] [place] [address] Erythrocyte distribution width Ratio (RBC) 14.0 % Normal 11.5-14.5 [facility] Comment on above: Performed By: #### H EMDF, PT, BMP3M, PHOS3, MG3, CK3 #### [address] #### VD25H #### [facility] [address] [place] [address] Granulocytes/100 WBC (Bld) 80.6 % High 40.0-80.0 [facility] Comment on above: Performed By: #### H EMDF, PT, BMP3M, PHOS3, MG3, CK3 #### [facility] [address] [place], [place] #### VD25H #### [facility] [address] [place] [address] Hematocrit Volume Fraction (Bld) 32.3 % Low 40.0-52.0 [facility] Comment on above: Performed By: #### H EMDF, PT, BMP3M, PHOS3, MG3, CK3 #### [address] [place], [place] #### VD25H #### [facility] [address] [place] [address] Hemoglobin mass conc (Bld) 10.8 g/dL Low 13.0-18.0 [facility] Comment on above: Performed By: #### H EMDF, PT, BMP3M, PHOS3, MG3, CK3 #### [address] [place], [place] #### VD25H #### [facility] [address] [place] [address] Lymphocytes #/vol (Bld) 1.6 10*3/uL Normal 1.0-4.3 [facility] Comment on above: Performed By: #### H EMDF, PT, BMP3M, PHOS3, MG3, CK3 #### [address] [place] #### VD25H #### [facility] [address] [place] [address] Lymphocytes/100 WBC (Bld) 9.8 % Low 20.0-40.0 [facility] Comment on above: Performed By: #### H EMDF, PT, BMP3M, PHOS3, MG3, CK3 #### [address] [place] #### VD25H #### [facility] [address] [place] [address] MCH Entitic mass (RBC) 28.9 pg Normal 26.0-34.0 [facility] Comment on above: Performed By: #### H EMDF, PT, BMP3M, PHOS3, MG3, CK3 #### [address] [place] #### VD25H #### [facility] [address] [place] [address] MCHC mass conc (RBC) 33.6 % Normal 32.0-36.0 [facility] Comment on above: Performed By: #### H EMDF, PT, BMP3M, PHOS3, MG3, CK3 #### [address] #### VD25H #### [facility] [address] [place] [address] MCV Entitic volume (RBC) 86.1 fL Normal 80.0-98.0 [facility] Comment on above: Performed By: #### H EMDF, PT, BMP3M, PHOS3, MG3, CK3 #### [address] #### VD25H #### [facility] [address] [place] [address] Monocytes #/vol (Bld) 0.9 10*3/uL High 0.0-0.8 [facility] Comment on above: Performed By: #### H EMDF, PT, BMP3M, PHOS3, MG3, CK3 #### [address] [place], [place] #### VD25H #### [facility] [address] [place] [address] Monocytes/100 WBC (Bld) 5.5 % Normal 2.0-10.0 [facility] Comment on above: Performed By: #### H EMDF, PT, BMP3M, PHOS3, MG3, CK3 #### [address] [place], [place] #### VD25H #### [facility] [address] [place] [address] Platelet mean volume Entitic volume (Bld) 8.2 fL Normal 7.4-10.4 [facility] Comment on above: Performed By: #### H EMDF, PT, BMP3M, PHOS3, MG3, CK3 #### [address] [place], [place] #### VD25H #### [facility] [address] [place] [address] Platelets #/vol (Bld) 475 10*3/uL High 140-440 [facility] Comment on above: Performed By: #### H EMDF, PT, BMP3M, PHOS3, MG3, CK3 #### [address] #### VD25H #### [facility] [address] [place] [address] RBC #/vol (Bld) 3.75 10*6/uL Low 4.40-5.90 [facility] Comment on above: Performed By: #### H EMDF, PT, BMP3M, PHOS3, MG3, CK3 #### [address] #### VD25H #### [facility] [address] [place] [address] WBC #/vol (Bld) 16.6 10*3/uL High 3.6-10.7 [facility] Comment on above: Performed By: #### H EMDF, PT, BMP3M, PHOS3, MG3, CK3 #### [address] #### VD25H #### [place] [address] [place] [address] Magnesiumon 07-31-2018 Magnesium mass conc 2.4 mg/dL High 1.6-2.3 [facility] Comment on above: Performed By: #### H EMDF, PT, BMP3M, PHOS3, MG3, CK3 #### [place] [address] [place], [place] #### VD25H #### [facility] [address] [place] [address] Phosphoruson 07-31-2018 Phosphate mass conc 4.5 mg/dL Normal 2.5-4.5 [facility] Comment on above: Performed By: #### H EMDF, PT, BMP3M, PHOS3, MG3, CK3 #### [address] #### VD25H #### [facility] [address] [place] [address] Basic Metabolic Panelon Calcium mass conc 8.6 mg/dL Normal 8.4-10.4 [facility] Comment on above: Performed By: #### H EMDF, PT, BMP3M, PHOS3, MG3, CK3 #### [address] #### VD25H #### [facility] [address] [place] [address] Anion gap molar conc 8 Normal [facility] Comment on above: Performed By: #### H EMDF, PT, BMP3M, PHOS3, MG3, CK3 #### [address] #### VD25H #### [facility] [address] [place] [address] CO2 molar conc 34 mmol/L High 22-30 [facility] Comment on above: Performed By: #### H EMDF, PT, BMP3M, PHOS3, MG3, CK3 #### [address] #### VD25H #### [place] [address] [place] [address] Creatinine mass conc 0.56 mg/dL Normal 0.52-1.25 [facility] Comment on above: Performed By: #### H EMDF, PT, BMP3M, PHOS3, MG3, CK3 #### [address] [address] #### VD25H #### [facility] [address] [place] [address] GFR/1.73 sq M predicted among blacks MDRD vol rate/area (S/P/Bld) mL/min/{1.73_m2} Normal >60 [facility] Comment on above: Performed By: #### H EMDF, PT, BMP3M, PHOS3, MG3, CK3 #### [address] #### VD25H #### [facility] [address] [place] [address] GFR/1.73 sq M predicted among non-blacks MDRD vol rate/area (S/P/Bld) mL/min/{1.73_m2} Normal >60 [facility] Comment on above: Result Comment: Sour ce- MDRD equation with creatinine calibration to IDMS(NKDEP) eGFR not recommended for drug dose adjustment Performed By: #### H EMDF, PT, BMP3M, PHOS3, MG3, CK3 #### [address] #### VD25H #### [facility] [address] [place] [address] Glucose mass conc 121 mg/dL High 70-100 [facility] Comment on above: Performed By: #### H EMDF, PT, BMP3M, PHOS3, MG3, CK3 #### [address] #### VD25H #### [facility] [address] [place] [address] Urea nitrogen mass conc 29 mg/dL High 7-20 [facility] Comment on above: Performed By: #### H EMDF, PT, BMP3M, PHOS3, MG3, CK3 #### [facility] [address] [place] [facility] [address] #### VD25H #### [facility] [address] [place] [address] Chloride molar conc 99 mmol/L Normal 98-107 [facility] Comment on above: Performed By: #### H EMDF, PT, BMP3M, PHOS3, MG3, CK3 #### [facility] [address] [place] [place] [address] #### VD25H #### [facility] [address] [place] [address] Potassium molar conc 3.7 mmol/L Normal 3.5-5.1 [facility] Comment on above: Performed By: #### H EMDF, PT, BMP3M, PHOS3, MG3, CK3 #### [place] [address] [place] [address] #### VD25H #### [facility] [address] [place] [address] Sodium molar conc 141 mmol/L Normal 135-145 [facility] Comment on above: Performed By: #### H EMDF, PT, BMP3M, PHOS3, MG3, CK3 #### [facility] [address] [place] [facility] [address] #### VD25H #### [facility] [address] [place] [address] CR Abdomen APon 07-30-2018 CR Abdomen AP Patient Name: KATHYA HOOPER Diagnostic Radiology Exam Date/Time 07/30/2018 10:28:42 EDT Exam CR Abdomen AP Ordering Physician INDRA JACOBSON Accession Number [id number] CPT4 Codes 18616 () Reason For Exam abd distension Report [...] Transcribed Date and Time: 07/30/2018 3:57 Normal [facility] CR Chest Portableon 07-31-19 CR Chest Portable Patient Name: KATHYA HOOPER Diagnostic Radiology Exam Date/Time 07/30/2018 12:28:13 EDT Exam CR Chest Portable Ordering Physician SALO DAVIS Accession Number [id number] CPT4 Codes 13108 () Reason For Exam line reposition Report [...] Transcribed Date and Time: 07/30/2018 1:32 Normal [facility] CR Chest Portable Patient Name: KATHYA HOOPER Diagnostic Radiology Exam Date/Time 07/30/2018 06:40:08 EDT Exam CR Chest Portable Ordering Physician MARIA EUGENIA PEREZ Accession Number [id number] CPT4 Codes 58817 () Reason For Exam ETT placement Report [...] Transcribed Date and Time: 07/30/2018 10:26 [facility],Bedsideon 07-30-2018 Glucose mass conc 125 mg/dL High 70-100 [facility] Comment on above: Result Comment: Test performed by glucose meter. Results may be 10%-15% lower than serum/plasma values. (CLIA ID [id number]) Performed By: #### H EMDF, PT, BMP3M, PHOS3, MG3, CK3 #### [facility] [address] [place] [address] #### VD25H #### [facility] [address] [place] [address] Glucose mass conc 117 mg/dL High 70-100 [facility] Comment on above: Result Comment: Test performed by glucose meter. Results may be 10%-15% lower than serum/plasma values. (CLIA ID [id number]) Performed By: #### H EMDF, PT, BMP3M, PHOS3, MG3, CK3 #### [facility] [address] [place], [place] #### VD25H #### [facility] [address] [place] [address] Glucose mass conc 44 mg/dL Low 70-100 [facility] Comment on above: Result Comment: Repe ated Test; Test performed by glucose meter. Results may be 10%-15% lower than serum/plasma values. (CLIA ID [id number]) Performed By: #### H EMDF, PT, BMP3M, PHOS3, MG3, CK3 #### [facility] [address] [place] #### VD25H #### [facility] [address] [place] [address] Hemogram w/ Autodiffon 07-30 Abs Baso Cnt 0.2 10*3/uL Normal 0.0-0.2 [facility] Comment on above: Performed By: #### H EMDF, PT, BMP3M, PHOS3, MG3, CK3 #### [facility] [address] [place] #### VD25H #### [facility] [address] [place] [address] Abs Neutrophile Cnt 13.2 10*3/uL High 1.8-7.0 [facility] Comment on above: Performed By: #### H EMDF, PT, BMP3M, PHOS3, MG3, CK3 #### [facility] [address] [place] #### VD25H #### [facility] [address] [place] [address] Basophils/100 WBC (Bld) 0.9 % Normal 0.0-2.0 [facility] Comment on above: Performed By: #### H EMDF, PT, BMP3M, PHOS3, MG3, CK3 #### [address] #### VD25H #### [facility] [address] [place] [address] Eosinophils #/vol (Bld) 0.5 10*3/uL Normal 0.0-0.5 [facility] Comment on above: Performed By: #### H EMDF, PT, BMP3M, PHOS3, MG3, CK3 #### [facility] [address] [place] #### VD25H #### [facility] [address] [place] [address] Eosinophils/100 WBC (Bld) 2.8 % Normal 1.0-6.0 [facility] Comment on above: Performed By: #### H EMDF, PT, BMP3M, PHOS3, MG3, CK3 #### [place] [address] [place], [place] #### VD25H #### [facility] [address] [place] [address] Erythrocyte distribution width Ratio (RBC) 13.7 % Normal 11.5-14.5 [facility] Comment on above: Performed By: #### H EMDF, PT, BMP3M, PHOS3, MG3, CK3 #### [address] #### VD25H #### [facility] [address] [place] [address] Granulocytes/100 WBC (Bld) 76.6 % Normal 40.0-80.0 [facility] Comment on above: Performed By: #### H EMDF, PT, BMP3M, PHOS3, MG3, CK3 #### [place] [address] [place] #### VD25H #### [facility] [address] [place] [address] Hematocrit Volume Fraction (Bld) 31.4 % Low 40.0-52.0 [facility] Comment on above: Performed By: #### H EMDF, PT, BMP3M, PHOS3, MG3, CK3 #### [address] #### VD25H #### [facility] [address] [place] [address] Hemoglobin mass conc (Bld) 10.6 g/dL Low 13.0-18.0 [facility] Comment on above: Performed By: #### H EMDF, PT, BMP3M, PHOS3, MG3, CK3 #### [facility] [address] [place] #### VD25H #### [facility] [address] [place] [address] Lymphocytes #/vol (Bld) 2.2 10*3/uL Normal 1.0-4.3 [facility] Comment on above: Performed By: #### H EMDF, PT, BMP3M, PHOS3, MG3, CK3 #### [address] #### VD25H #### [facility] [address] [place] [address] Lymphocytes/100 WBC (Bld) 12.9 % Low 20.0-40.0 [facility] Comment on above: Performed By: #### H EMDF, PT, BMP3M, PHOS3, MG3, CK3 #### [address] #### VD25H #### [facility] [address] [place] [address] MCH Entitic mass (RBC) 29.2 pg Normal 26.0-34.0 [facility] Comment on above: Performed By: #### H EMDF, PT, BMP3M, PHOS3, MG3, CK3 #### [address] #### VD25H #### [facility] [address] [place] [address] MCHC mass conc (RBC) 33.8 % Normal 32.0-36.0 [facility] Comment on above: Performed By: #### H EMDF, PT, BMP3M, PHOS3, MG3, CK3 #### [address] #### VD25H #### [facility] [address] [place] [address] MCV Entitic volume (RBC) 86.4 fL Normal 80.0-98.0 [facility] Comment on above: Performed By: #### H EMDF, PT, BMP3M, PHOS3, MG3, CK3 #### [address] [place] #### VD25H #### [facility] [address] [place] [address] Monocytes #/vol (Bld) 1.2 10*3/uL High 0.0-0.8 [facility] Comment on above: Performed By: #### H EMDF, PT, BMP3M, PHOS3, MG3, CK3 #### [address] #### VD25H #### [place] [address] [place] [address] Monocytes/100 WBC (Bld) 6.8 % Normal 2.0-10.0 [facility] Comment on above: Performed By: #### H EMDF, PT, BMP3M, PHOS3, MG3, CK3 #### [address] #### VD25H #### [place] [address] [place] [address] Platelet mean volume Entitic volume (Bld) 8.1 fL Normal 7.4-10.4 [facility] Comment on above: Performed By: #### H EMDF, PT, BMP3M, PHOS3, MG3, CK3 #### [address] #### VD25H #### [facility] [address] [place] [address] Platelets #/vol (Bld) 507 10*3/uL High 140-440 [facility] Comment on above: Performed By: #### H EMDF, PT, BMP3M, PHOS3, MG3, CK3 #### [address] #### VD25H #### [facility] [employer] [facility] [address] [place] [address] RBC #/vol (Bld) 3.64 10*6/uL Low 4.40-5.90 [facility] Comment on above: Performed By: #### H EMDF, PT, BMP3M, PHOS3, MG3, CK3 #### [facility] [address] [place] #### VD25H #### [facility] [employer] [facility] [address] [place] [address] WBC #/vol (Bld) 17.2 10*3/uL High 3.6-10.7 [facility] Comment on above: Performed By: #### H EMDF, PT, BMP3M, PHOS3, MG3, CK3 #### [facility] [employer] [place] [address] [place], [place] #### VD25H #### [facility] [employer] [facility] [address] [place] [address] Magnesiumon 07-30-2018 Magnesium mass conc 2.5 mg/dL High 1.6-2.3 [facility] [employer] Comment on above: Performed By: #### H EMDF, PT, BMP3M, PHOS3, MG3, CK3 #### [facility] [employer] [place] [address] [place] #### VD25H #### [facility] [employer] [facility] [address] [place] [address] Phosphoruson 07-30-2018 Phosphate mass conc 4.5 mg/dL Normal 2.5-4.5 [facility] Comment on above: Performed By: #### H EMDF, PT, BMP3M, PHOS3, MG3, CK3 #### [facility] [employer] [place] [address] [place], [place] #### VD25H #### [facility] [employer] [facility] [address] [place] [address] VL Venous Duplex US Lower Ex t Bilateralon 07-30-2018 VL Venous Duplex US Lower Ext Bilateral Patient Name: KATHYA HOOPER Ultrasound Exam Date/Time 07/30/2018 12:27:47 EDT Exam VL Venous Duplex US Lower Ext Bilateral Ordering Physician ETIENNE MARTÍNEZ JULIE Accession Number [id number] CPT4 Codes 40082 () Reason For Exam edema Report [facility] --- Lower Extremity Venous Duplex Report Patient Name: Kathya Hooper : 1955 Study Date: 07/30/2018 W (63yrs) Age: 63 Account: [id number] Gender: M Loc: [id number] BP: Ordering: Yesenia Martínez Technologist: Ordering Physician: Yesenia Martínez Member Of Parliament: Barbara Suarez RDMS, T Interpreting Physician: Krysta Arora --- Location: [facility] --- INDICATIONS: Edema. --- CONCLUSIONS [...] performed. The images were obtained using a [employer] E9 vascular ultrasound machine. --- VENOUS FLOW [...] ---------+-------+--- --+ Electronically signed by: Krysta Arora [id number] Final Dictated: 07/30/2018 1:30 pm Dictating Physician: KRYSTA ARORA Signed Date and Time: 07/30/2018 1:29 pm Signed by: KRYSTA ARORA Normal [facility] Arterial Blood Gaseson 07-29 CO2 molar conc 34.4 mmol/L High 23.0-27.[address] [facility] Comment on above: Performed By: #### H EMDF, PT, BMP3M, PHOS3, MG3, CK3 #### [facility] [address] [place] [address] #### VD25H #### [facility] [employer] [facility] [address] [place] [address] HCO3 molar conc (Bld) 33.0 mmol/L High 21.0-25.0 [facility] Comment on above: Performed By: #### H EMDF, PT, BMP3M, PHOS3, MG3, CK3 #### [facility] [address] [place] #### VD25H #### [facility] [address] [place] [address] Hemoglobin mass conc (Bld) 11.5 g/dL Normal [facility]Only [facility] Comment on above: Performed By: #### H EMDF, PT, BMP3M, PHOS3, MG3, CK3 #### [place] [address] [place] #### VD25H #### [facility] [address] [place] [address] Oxygen ppres (Bld) 84.2 mm[Hg] Normal 80.0-100.0 [facility] Comment on above: Performed By: #### H EMDF, PT, BMP3M, PHOS3, MG3, CK3 #### [address] [place] #### VD25H #### [facility] [address] [place] [address] Oxygen saturation in Blood 96.2 % Normal 95.0-100.0 [facility] Comment on above: Performed By: #### H EMDF, PT, BMP3M, PHOS3, MG3, CK3 #### [place] [address] [place] #### VD25H #### [facility] [address] [place] [address] pCO2 46.8 mm[Hg] High 35.0-45.0 [facility] Comment on above: Performed By: #### H EMDF, PT, BMP3M, PHOS3, MG3, CK3 #### [place] [address] [place] #### VD25H #### [facility] [address] [place] [address] pH (Bld) 7.466 High 7.350-7.450 [facility] Comment on above: Performed By: #### H EMDF, PT, BMP3M, PHOS3, MG3, CK3 #### [place] [address] [place] #### VD25H #### [facility] [address] [place] [address] Std Base Excess 8.2 mmol/L High -3.0-3.[address] [facility] Comment on above: Performed By: #### H EMDF, PT, BMP3M, PHOS3, MG3, CK3 #### [place] [address] [place] #### VD25H #### [facility] [address] [place] [address] FIO2 .30 Normal [facility] Comment on above: Performed By: #### H EMDF, PT, BMP3M, PHOS3, MG3, CK3 #### [address] [place] #### VD25H #### [facility] [address] [place] [address] Basic Metabolic Panelon 03-3 Calcium mass conc 8.5 mg/dL Normal 8.4-10.4 [facility] Comment on above: Performed By: #### H EMDF, PT, BMP3M, PHOS3, MG3, CK3 #### [place] [address] [place] #### VD25H #### [facility] [address] [place] [address] Glucose mass conc 163 mg/dL High 70-100 [facility] Comment on above: Performed By: #### H EMDF, PT, BMP3M, PHOS3, MG3, CK3 #### [address] [place] #### VD25H #### [facility] [address] [place] [address] Anion gap molar conc 10 Normal [facility] Comment on above: Performed By: #### H EMDF, PT, BMP3M, PHOS3, MG3, CK3 #### [place] [address] [place] #### VD25H #### [facility] [address] [place] [address] CO2 molar conc 37 mmol/L High 22-30 [facility] Comment on above: Performed By: #### H EMDF, PT, BMP3M, PHOS3, MG3, CK3 #### [address] [address] #### VD25H #### [facility] [address] [place] [address] Creatinine mass conc 0.57 mg/dL Normal 0.52-1.25 [facility] Comment on above: Performed By: #### H EMDF, PT, BMP3M, PHOS3, MG3, CK3 #### [address] #### VD25H #### [place] [address] [place] [address] GFR/1.73 sq M predicted among blacks MDRD vol rate/area (S/P/Bld) mL/min/{1.73_m2} Normal >60 [facility] Comment on above: Performed By: #### H EMDF, PT, BMP3M, PHOS3, MG3, CK3 #### [address] #### VD25H #### [facility] [address] [place] [address] GFR/1.73 sq M predicted among non-blacks MDRD vol rate/area (S/P/Bld) mL/min/{1.73_m2} Normal >60 [facility] Comment on above: Result Comment: Sour ce- MDRD equation with creatinine calibration to IDMS(NKDEP) eGFR not recommended for drug dose adjustment Performed By: #### H EMDF, PT, BMP3M, PHOS3, MG3, CK3 #### [address] [address] #### VD25H #### [facility] [address] [place] [address] Urea nitrogen mass conc 30 mg/dL High 7-20 [facility] Comment on above: Performed By: #### H EMDF, PT, BMP3M, PHOS3, MG3, CK3 #### [facility] [address] [facility] #### VD25H #### [facility] [address] [place] [address] Chloride molar conc 95 mmol/L Low 98-107 [facility] Comment on above: Performed By: #### H EMDF, PT, BMP3M, PHOS3, MG3, CK3 #### [facility] [address] [facility] #### VD25H #### [facility] [address] [place] [address] Potassium molar conc 3.3 mmol/L Low 3.5-5.1 [facility] Comment on above: Performed By: #### H EMDF, PT, BMP3M, PHOS3, MG3, CK3 #### [facility] [address] [facility] #### VD25H #### [facility] [address] [place] [address] Sodium molar conc 141 mmol/L Normal 135-145 [facility] Comment on above: Performed By: #### H EMDF, PT, BMP3M, PHOS3, MG3, CK3 #### [facility] [address] [facility] #### VD25H #### [facility] [address] [place] [address] CR Chest Portableon 07-30-19 19 CR Chest Portable Patient Name: KATHYA HOOPER Diagnostic Radiology Exam Date/Time 07/29/2018 07:01:44 EDT Exam CR Chest Portable Ordering Physician MARIA UEGENIA PEREZ Accession Number [id number] CPT4 Codes 57889 () Reason For Exam ETT placement Report [...] Transcribed Date and Time: 07/29/2018 9:04 Normal [facility] Gl[facility],Bedsideon 07-29-2018 Glucose mass conc 124 mg/dL High 70-100 [facility] Comment on above: Result Comment: Test performed by glucose meter. Results may be 10%-15% lower than serum/plasma values. (CLIA ID [id number]) Performed By: #### H EMDF, PT, BMP3M, PHOS3, MG3, CK3 #### [facility] [address] [place] [address] #### VD25H #### [facility] [address] [place] [address] Glucose mass conc 175 mg/dL High 70-100 [facility] [employer] Comment on above: Result Comment: Test performed by glucose meter. Results may be 10%-15% lower than serum/plasma values. (CLIA ID [id number]) Performed By: #### H EMDF, PT, BMP3M, PHOS3, MG3, CK3 #### [facility] [address] [place] [address] #### VD25H #### [facility] [address] [place] [address] Glucose mass conc 138 mg/dL High 70-100 [facility] [employer] Comment on above: Result Comment: Test performed by glucose meter. Results may be 10%-15% lower than serum/plasma values. (CLIA ID [id number]) Performed By: #### H EMDF, PT, BMP3M, PHOS3, MG3, CK3 #### [address] #### VD25H #### [facility] [address] [place] [address] Glucose mass conc 147 mg/dL High 70-100 [facility] Comment on above: Result Comment: Test performed by glucose meter. Results may be 10%-15% lower than serum/plasma values. (CLIA ID [id number]) Performed By: #### H EMDF, PT, BMP3M, PHOS3, MG3, CK3 #### [address] #### VD25H #### [place] [address] [facility] [address] Hemogram w/ Autodiffon 07-29 Erythrocyte distribution width Ratio (RBC) 13.8 % Normal 11.5-14.5 [facility] Comment on above: Performed By: #### H EMDF, PT, BMP3M, PHOS3, MG3, CK3 #### [address] #### VD25H #### [facility] [address] [place] [address] Hematocrit Volume Fraction (Bld) 32.9 % Low 40.0-52.0 [facility] Comment on above: Performed By: #### H EMDF, PT, BMP3M, PHOS3, MG3, CK3 #### [place] [address] [place] #### VD25H #### [facility] [address] [place] [address] Hemoglobin mass conc (Bld) 11.0 g/dL Low 13.0-18.0 [facility] Comment on above: Performed By: #### H EMDF, PT, BMP3M, PHOS3, MG3, CK3 #### [address] #### VD25H #### [facility] [address] [place] [address] MCH Entitic mass (RBC) 29.0 pg Normal 26.0-34.0 [facility] Comment on above: Performed By: #### H EMDF, PT, BMP3M, PHOS3, MG3, CK3 #### [facility] [address] [place], [place] #### VD25H #### [facility] [address] [place] [address] MCHC mass conc (RBC) 33.6 % Normal 32.0-36.0 [facility] Comment on above: Performed By: #### H EMDF, PT, BMP3M, PHOS3, MG3, CK3 #### [address] [place], [place] #### VD25H #### [facility] [address] [place] [address] MCV Entitic volume (RBC) 86.3 fL Normal 80.0-98.0 [facility] Comment on above: Performed By: #### H EMDF, PT, BMP3M, PHOS3, MG3, CK3 #### [address] #### VD25H #### [facility] [address] [place] [address] Platelet mean volume Entitic volume (Bld) 8.1 fL Normal 7.4-10.4 [facility] Comment on above: Performed By: #### H EMDF, PT, BMP3M, PHOS3, MG3, CK3 #### [address] [place], [place] #### VD25H #### [facility] [address] [place] [address] Platelets #/vol (Bld) 501 10*3/uL High 140-440 [facility] Comment on above: Performed By: #### H EMDF, PT, BMP3M, PHOS3, MG3, CK3 #### [address] #### VD25H #### [facility] [address] [place] [address] RBC #/vol (Bld) 3.81 10*6/uL Low 4.40-5.90 [facility] Comment on above: Performed By: #### H EMDF, PT, BMP3M, PHOS3, MG3, CK3 #### [address] #### VD25H #### [facility] [address] [place] [address] WBC #/vol (Bld) 20.8 10*3/uL High 3.6-10.7 [facility] Comment on above: Performed By: #### H EMDF, PT, BMP3M, PHOS3, MG3, CK3 #### [address] #### VD25H #### [place] [address] [place] [address] Magnesiumon 07-29-2018 Magnesium mass conc 2.5 mg/dL High 1.6-2.3 [facility] Comment on above: Performed By: #### H EMDF, PT, BMP3M, PHOS3, MG3, CK3 #### [address] #### VD25H #### [place] [address] [place] [address] Manual Diffon 07-29-2018 Abs Neutrophile Cnt 17.3 10*3/uL High 2.2-8.2 [facility] Comment on above: Performed By: #### H EMDF, PT, BMP3M, PHOS3, MG3, CK3 #### [address] #### VD25H #### [place] [address] [place] [address] Bands 1 % Normal 0-3 [facility] Comment on above: Performed By: #### H EMDF, PT, BMP3M, PHOS3, MG3, CK3 #### [address] #### VD25H #### [facility] [address] [place] [address] Eosinophils #/vol (Bld) 0.6 10*3/uL High 0.0-0.5 [facility] Comment on above: Performed By: #### H EMDF, PT, BMP3M, PHOS3, MG3, CK3 #### [facility] [address] [place], [place] #### VD25H #### [facility] [address] [place] [address] Eosinophils/100 WBC (Bld) 3 % Normal 1-6 [facility] Comment on above: Performed By: #### H EMDF, PT, BMP3M, PHOS3, MG3, CK3 #### [address] #### VD25H #### [facility] [address] [place] [address] Lymphocytes #/vol (Bld) 2.3 10*3/uL Normal 1.1-4.5 [facility] Comment on above: Performed By: #### H EMDF, PT, BMP3M, PHOS3, MG3, CK3 #### [address] #### VD25H #### [facility] [address] [place] [address] Lymphocytes/100 WBC (Bld) 11 % Low 20-40 [facility] Comment on above: Performed By: #### H EMDF, PT, BMP3M, PHOS3, MG3, CK3 #### [address] #### VD25H #### [facility] [address] [place] [address] Metamyelocytes 1 % Abnormal <1 [facility] Comment on above: Performed By: #### H EMDF, PT, BMP3M, PHOS3, MG3, CK3 #### [address] #### VD25H #### [facility] [address] [place] [address] Monocytes #/vol (Bld) 0.4 10*3/uL Normal 0.2-1.1 [facility] Comment on above: Performed By: #### H EMDF, PT, BMP3M, PHOS3, MG3, CK3 #### [place] [address] [place], [place] #### VD25H #### [facility] [address] [place] [address] Monocytes/100 WBC (Bld) 2 % Normal 2-10 [facility] Comment on above: Performed By: #### H EMDF, PT, BMP3M, PHOS3, MG3, CK3 #### [address] [place], [place] #### VD25H #### [facility] [address] [place] [address] RBC morphology finding Nom (Bld) See Prev Normal [facility] Comment on above: Performed By: #### H EMDF, PT, BMP3M, PHOS3, MG3, CK3 #### [place] [address] [place], [place] #### VD25H #### [facility] [address] [place] [address] Seg Neutrophils 82 % High 40-[address] [facility] Comment on above: Performed By: #### H EMDF, PT, BMP3M, PHOS3, MG3, CK3 #### [place] [address] [place], [place] #### VD25H #### [facility] [address] [place] [address] Abs Baso Cnt 0.0 10*3/uL Normal 0.0-0.2 [facility] Comment on above: Performed By: #### H EMDF, PT, BMP3M, PHOS3, MG3, CK3 #### [address] [place], [place] #### VD25H #### [facility] [address] [place] [address] Basophils/100 WBC (Bld) 0 % Normal 0-2 [facility] Comment on above: Performed By: #### H EMDF, PT, BMP3M, PHOS3, MG3, CK3 #### [address] #### VD25H #### [facility] [address] [place] [address] Cells counted 100 Normal [facility] Comment on above: Performed By: #### H EMDF, PT, BMP3M, PHOS3, MG3, CK3 #### [address] #### VD25H #### [place] [address] [place] [address] Phosphoruson 07-29-2018 Phosphate mass conc 4.2 mg/dL Normal 2.5-4.5 [facility] Comment on above: Performed By: #### H EMDF, PT, BMP3M, PHOS3, MG3, CK3 #### [address] #### VD25H #### [address] [place] [address] Procalcitoninon 07-29-2018 Protein mass conc 0.11 ng/mL Abnormal <0.10 [facility] Comment on above: Performed By: #### H EMDF, PT, BMP3M, PHOS3, MG3, CK3 #### [address] #### VD25H #### [facility] [address] [place] [address] Interpretation See Below Normal [facility] Comment on above: Result Comment: PCT <0.50 = Low risk of severe sepsis and/or septic shock. PCT >2.00 = High risk of severe sepsis and/or septic shock. Performed By: #### H EMDF, PT, BMP3M, PHOS3, MG3, CK3 #### [place] [address] [place], [place] #### VD25H #### [facility] [address] [place] [address] Vancomycin Troughon 07-30-19 19 Vancomycin Trough 12.2 ug/mL Low 15.0-20.0 [facility] Comment on above: Result Comment: . Performed By: #### H EMDF, PT, BMP3M, PHOS3, MG3, CK3 #### [place] [address] [place], [place] #### VD25H #### [facility] [address] [place] [address] Basic Metabolic Panelon 07-01 Calcium mass conc 8.6 mg/dL Normal 8.4-10.4 [facility] Comment on above: Performed By: #### H EMDF, PT, BMP3M, PHOS3, MG3, CK3 #### [address] #### VD25H #### [facility] [address] [place] [address] Glucose mass conc 158 mg/dL High 70-100 [facility] Comment on above: Performed By: #### H EMDF, PT, BMP3M, PHOS3, MG3, CK3 #### [address] #### VD25H #### [facility] [address] [place] [address] Urea nitrogen mass conc 29 mg/dL High 7-20 [facility] Comment on above: Performed By: #### H EMDF, PT, BMP3M, PHOS3, MG3, CK3 #### [address] #### VD25H #### [facility] [address] [place] [address] Anion gap molar conc 9 Normal [facility] Comment on above: Performed By: #### H EMDF, PT, BMP3M, PHOS3, MG3, CK3 #### [address] #### VD25H #### [facility] [address] [place] [address] CO2 molar conc 32 mmol/L High 22-30 [facility] Comment on above: Performed By: #### H EMDF, PT, BMP3M, PHOS3, MG3, CK3 #### [address] #### VD25H #### [facility] [address] [place] [address] Creatinine mass conc 0.61 mg/dL Normal 0.52-1.25 [facility] Comment on above: Performed By: #### H EMDF, PT, BMP3M, PHOS3, MG3, CK3 #### [address] #### VD25H #### [place] [address] [place] [address] GFR/1.73 sq M predicted among blacks MDRD vol rate/area (S/P/Bld) mL/min/{1.73_m2} Normal >60 [facility] Comment on above: Performed By: #### H EMDF, PT, BMP3M, PHOS3, MG3, CK3 #### [address] #### VD25H #### [place] [address] [place] [address] GFR/1.73 sq M predicted among non-blacks MDRD vol rate/area (S/P/Bld) mL/min/{1.73_m2} Normal >60 [facility] Comment on above: Result Comment: Sour ce- MDRD equation with creatinine calibration to IDMS(NKDEP) eGFR not recommended for drug dose adjustment Performed By: #### H EMDF, PT, BMP3M, PHOS3, MG3, CK3 #### [address] #### VD25H #### [facility] [address] [place] [address] Potassium molar conc 3.6 mmol/L Normal 3.5-5.1 [facility] Comment on above: Performed By: #### H EMDF, PT, BMP3M, PHOS3, MG3, CK3 #### [facility] [address] [place] [address] #### VD25H #### [facility] [address] [place] [address] Chloride molar conc 100 mmol/L Normal 98-107 [facility] Comment on above: Performed By: #### H EMDF, PT, BMP3M, PHOS3, MG3, CK3 #### [address] [address] #### VD25H #### [facility] [address] [place] [address] Sodium molar conc 141 mmol/L Normal 135-145 [facility] Comment on above: Performed By: #### H EMDF, PT, BMP3M, PHOS3, MG3, CK3 #### [address] [address] #### VD25H #### [facility] [address] [place] [address] CR Chest Portableon 07-29-19 19 CR Chest Portable Patient Name: KATHYA HOOPER Diagnostic Radiology Exam Date/Time 07/28/2018 07:09:40 EDT Exam CR Chest Portable Ordering Physician MARIA EUGENIA PEREZ Accession Number [id number] CPT4 Codes 75927 () Reason For Exam ETT placement Report [...] Transcribed Date and Time: 07/28/2018 7:16 Normal [facility] [employer] [facility] Glucose,Bedsideon 07-28-2018 Glucose mass conc 149 mg/dL High 70-100 [facility] [facility] Comment on above: Result Comment: Test performed by glucose meter. Results may be 10%-15% lower than serum/plasma values. (CLIA ID [id number]) Performed By: #### H EMDF, PT, BMP3M, PHOS3, MG3, CK3 #### [facility] [employer] [place] [address] [place], [place] #### VD25H #### [facility] [address] [place] [address] Glucose mass conc 142 mg/dL High 70-100 [facility] [employer] [facility] Comment on above: Result Comment: Test performed by glucose meter. Results may be 10%-15% lower than serum/plasma values. (CLIA ID [id number]) Performed By: #### H EMDF, PT, BMP3M, PHOS3, MG3, CK3 #### [facility] [employer] [facility] [address] [place], [place] #### VD25H #### [facility] [address] [place] [address] Hemogram w/ Autodiffon 07-28 Erythrocyte distribution width Ratio (RBC) 13.8 % Normal 11.5-14.5 [facility] Comment on above: Performed By: #### H EMDF, PT, BMP3M, PHOS3, MG3, CK3 #### [facility] [employer] [facility] [address] [place], [place] #### VD25H #### [facility] [employer] [facility] [address] [place] [address] Hematocrit Volume Fraction (Bld) 33.0 % Low 40.0-52.0 [facility] Comment on above: Performed By: #### H EMDF, PT, BMP3M, PHOS3, MG3, CK3 #### [address] #### VD25H #### [facility] [address] [place] [address] Hemoglobin mass conc (Bld) 11.0 g/dL Low 13.0-18.0 [facility] Comment on above: Performed By: #### H EMDF, PT, BMP3M, PHOS3, MG3, CK3 #### [address] #### VD25H #### [facility] [address] [facility] [address] MCH Entitic mass (RBC) 28.7 pg Normal 26.0-34.0 [facility] Comment on above: Performed By: #### H EMDF, PT, BMP3M, PHOS3, MG3, CK3 #### [address] #### VD25H #### [facility] [address] [place] [address] MCHC mass conc (RBC) 33.4 % Normal 32.0-36.0 [facility] Comment on above: Performed By: #### H EMDF, PT, BMP3M, PHOS3, MG3, CK3 #### [address] #### VD25H #### [facility] [address] [facility] [place] [address] MCV Entitic volume (RBC) 86.0 fL Normal 80.0-98.0 [facility] Comment on above: Performed By: #### H EMDF, PT, BMP3M, PHOS3, MG3, CK3 #### [address] #### VD25H #### [facility] [address] [place] [address] Platelet mean volume Entitic volume (Bld) 8.4 fL Normal 7.4-10.4 [facility] Comment on above: Performed By: #### H EMDF, PT, BMP3M, PHOS3, MG3, CK3 #### [address] [place], [place] #### VD25H #### [facility] [address] [place] [address] Platelets #/vol (Bld) 477 10*3/uL High 140-440 [facility] Comment on above: Performed By: #### H EMDF, PT, BMP3M, PHOS3, MG3, CK3 #### [address] #### VD25H #### [facility] [address] [place] [address] RBC #/vol (Bld) 3.84 10*6/uL Low 4.40-5.90 [facility] Comment on above: Performed By: #### H EMDF, PT, BMP3M, PHOS3, MG3, CK3 #### [address] #### VD25H #### [facility] [address] [facility] [place] [address] WBC #/vol (Bld) 18.1 10*3/uL High 3.6-10.7 [facility] Comment on above: Performed By: #### H EMDF, PT, BMP3M, PHOS3, MG3, CK3 #### [address] #### VD25H #### [facility] [address] [facility] [place] [address] Magnesiumon 07-28-2018 Magnesium mass conc 2.4 mg/dL High 1.6-2.3 [facility] Comment on above: Performed By: #### H EMDF, PT, BMP3M, PHOS3, MG3, CK3 #### [address] #### VD25H #### [facility] [address] [place] [address] Manual Diffon 07-28-2018 Abs Neutrophile Cnt 14.8 10*3/uL High 2.2-8.2 [facility] Comment on above: Performed By: #### H EMDF, PT, BMP3M, PHOS3, MG3, CK3 #### [place] [address] [place], [place] #### VD25H #### [facility] [address] [place] [address] Anisocytosis Ql (Bld) Slight Normal [facility] Comment on above: Performed By: #### H EMDF, PT, BMP3M, PHOS3, MG3, CK3 #### [place] [address] [place] #### VD25H #### [place] [address] [place] [address] Hypochromia Slight Normal [facility] Comment on above: Performed By: #### H EMDF, PT, BMP3M, PHOS3, MG3, CK3 #### [place] [address] [place], [place] #### VD25H #### [place] [address] [place] [address] Lymphocytes #/vol (Bld) 1.3 10*3/uL Normal 1.1-4.5 [facility] Comment on above: Performed By: #### H EMDF, PT, BMP3M, PHOS3, MG3, CK3 #### [address] [place], [place] #### VD25H #### [facility] [address] [place] [address] Lymphocytes/100 WBC (Bld) 7 % Low 20-40 [facility] Comment on above: Performed By: #### H EMDF, PT, BMP3M, PHOS3, MG3, CK3 #### [place] [address] [place] #### VD25H #### [place] [address] [place] [address] Microcytosis Slight Normal [facility] Comment on above: Performed By: #### H EMDF, PT, BMP3M, PHOS3, MG3, CK3 #### [place] [address] [place] #### VD25H #### [facility] [address] [place] [address] Monocytes #/vol (Bld) 2.0 10*3/uL High 0.2-1.1 [facility] Comment on above: Performed By: #### H EMDF, PT, BMP3M, PHOS3, MG3, CK3 #### [address] #### VD25H #### [place] [address] [place] [address] Monocytes/100 WBC (Bld) 11 % High 2-10 [facility] Comment on above: Performed By: #### H EMDF, PT, BMP3M, PHOS3, MG3, CK3 #### [address] #### VD25H #### [place] [address] [place] [address] RBC morphology finding Nom (Bld) ABNORMAL Normal [facility] Comment on above: Performed By: #### H EMDF, PT, BMP3M, PHOS3, MG3, CK3 #### [address] #### VD25H #### [place] [address] [place] [address] Seg Neutrophils 82 % High 40-80 [facility] Comment on above: Performed By: #### H EMDF, PT, BMP3M, PHOS3, MG3, CK3 #### [address] #### VD25H #### [place] [address] [place] [address] Abs Baso Cnt 0.0 10*3/uL Normal 0.0-0.2 [facility] Comment on above: Performed By: #### H EMDF, PT, BMP3M, PHOS3, MG3, CK3 #### [facility] [address] [place], [place] #### VD25H #### [facility] [address] [place] [address] Bands 0 % Normal 0-3 [facility] Comment on above: Performed By: #### H EMDF, PT, BMP3M, PHOS3, MG3, CK3 #### [facility] [address] [place] #### VD25H #### [facility] [address] [place] [address] Basophils/100 WBC (Bld) 0 % Normal 0-2 [facility] Comment on above: Performed By: #### H EMDF, PT, BMP3M, PHOS3, MG3, CK3 #### [place] [address] [place] #### VD25H #### [facility] [address] [place] [address] Cells counted 100 Normal [facility] Comment on above: Performed By: #### H EMDF, PT, BMP3M, PHOS3, MG3, CK3 #### [place] [address] [place], [place] #### VD25H #### [facility] [address] [place] [address] Eosinophils #/vol (Bld) 0.0 10*3/uL Normal 0.0-0.5 [facility] Comment on above: Performed By: #### H EMDF, PT, BMP3M, PHOS3, MG3, CK3 #### [place] [address] [place] #### VD25H #### [facility] [address] [place] [address] Eosinophils/100 WBC (Bld) 0 % Low 1-6 [facility] Comment on above: Performed By: #### H EMDF, PT, BMP3M, PHOS3, MG3, CK3 #### [address] #### VD25H #### [facility] [address] [place] [address] Phosphoruson 07-28-2018 Phosphate mass conc 4.4 mg/dL Normal 2.5-4.5 [facility] Comment on above: Performed By: #### H EMDF, PT, BMP3M, PHOS3, MG3, CK3 #### [address] #### VD25H #### [facility] [address] [place] [address] Vancomycin Troughon 07-29-19 19 Vancomycin Trough 12.9 ug/mL Low 15.0-20.0 [facility] Comment on above: Result Comment: . Performed By: #### H EMDF, PT, BMP3M, PHOS3, MG3, CK3 #### [address] #### VD25H #### [facility] [address] [place] [address] Arterial Blood Gaseson 07-27 CO2 molar conc 28.4 mmol/L High 23.0-27.[address] [facility] Comment on above: Performed By: #### H EMDF, PT, BMP3M, PHOS3, MG3, CK3 #### [address] #### VD25H #### [facility] [address] [place] [address] HCO3 molar conc (Bld) 27.2 mmol/L High 21.0-25.0 [facility] Comment on above: Performed By: #### H EMDF, PT, BMP3M, PHOS3, MG3, CK3 #### [address] #### VD25H #### [facility] [address] [place] [address] Hemoglobin mass conc (Bld) 11.7 g/dL Normal ScreenOnly [facility] Comment on above: Performed By: #### H EMDF, PT, BMP3M, PHOS3, MG3, CK3 #### [facility] [address] [place], [place] #### VD25H #### [facility] [address] [place] [address] Oxygen ppres (Bld) 91.3 mm[Hg] Normal 80.0-100.0 [facility] Comment on above: Performed By: #### H EMDF, PT, BMP3M, PHOS3, MG3, CK3 #### [address] #### VD25H #### [facility] [address] [place] [address] Oxygen saturation in Blood 96.9 % Normal 95.0-100.0 [facility] Comment on above: Performed By: #### H EMDF, PT, BMP3M, PHOS3, MG3, CK3 #### [place] [address] [place], [place] #### VD25H #### [facility] [address] [place] [address] pCO2 39.0 mm[Hg] Normal 35.0-45.0 [facility] Comment on above: Performed By: #### H EMDF, PT, BMP3M, PHOS3, MG3, CK3 #### [place] [address] [place] #### VD25H #### [facility] [address] [place] [address] pH (Bld) 7.461 High 7.350-7.450 [facility] Comment on above: Performed By: #### H EMDF, PT, BMP3M, PHOS3, MG3, CK3 #### [address] #### VD25H #### [facility] [address] [place] [address] Std Base Excess 3.2 mmol/L High -3.0-3.[address] [facility] Comment on above: Performed By: #### H EMDF, PT, BMP3M, PHOS3, MG3, CK3 #### [facility] [address] [place] #### VD25H #### [facility] [address] [place] [address] FIO2 No data Normal [facility] Comment on above: Performed By: #### H EMDF, PT, BMP3M, PHOS3, MG3, CK3 #### [place] [address] [place], [place] #### VD25H #### [facility] [address] [place] [address] Basic Metabolic Panelon 03-2 Anion gap molar conc 12 Normal [facility] Comment on above: Performed By: #### H EMDF, PT, BMP3M, PHOS3, MG3, CK3 #### [place] [place] #### VD25H #### [facility] [address] [place] [address] Calcium mass conc 8.3 mg/dL Low 8.4-10.4 [facility] Comment on above: Performed By: #### H EMDF, PT, BMP3M, PHOS3, MG3, CK3 #### [place] [place] #### VD25H #### [facility] [address] [place] [address] CO2 molar conc 28 mmol/L Normal 22-30 [facility] Comment on above: Performed By: #### H EMDF, PT, BMP3M, PHOS3, MG3, CK3 #### [address] [place], [place] #### VD25H #### [facility] [address] [place] [address] Glucose mass conc 156 mg/dL High 70-100 [facility] Comment on above: Performed By: #### H EMDF, PT, BMP3M, PHOS3, MG3, CK3 #### [address] [address] #### VD25H #### [facility] [address] [place] [address] Urea nitrogen mass conc 21 mg/dL High 7-20 [facility] Comment on above: Performed By: #### H EMDF, PT, BMP3M, PHOS3, MG3, CK3 #### [address] [address] #### VD25H #### [facility] [address] [place] [address] Creatinine mass conc 0.53 mg/dL Normal 0.52-1.25 [facility] Comment on above: Performed By: #### H EMDF, PT, BMP3M, PHOS3, MG3, CK3 #### [address] #### VD25H #### [facility] [address] [facility] [address] GFR/1.73 sq M predicted among blacks MDRD vol rate/area (S/P/Bld) mL/min/{1.73_m2} Normal >60 [facility] Comment on above: Performed By: #### H EMDF, PT, BMP3M, PHOS3, MG3, CK3 #### [address] [address] #### VD25H #### [facility] [address] [place] [address] GFR/1.73 sq M predicted among non-blacks MDRD vol rate/area (S/P/Bld) mL/min/{1.73_m2} Normal >60 [facility] Comment on above: Result Comment: Sour ce- MDRD equation with creatinine calibration to IDMS(NKDEP) eGFR not recommended for drug dose adjustment Performed By: #### H EMDF, PT, BMP3M, PHOS3, MG3, CK3 #### [facility] [address] [place] [address] #### VD25H #### [facility] [address] [place] [address] Potassium molar conc 3.2 mmol/L Low 3.5-5.1 [facility] Comment on above: Performed By: #### H EMDF, PT, BMP3M, PHOS3, MG3, CK3 #### [facility] [address] [place] [place] [address] #### VD25H #### [facility] [address] [place] [address] Chloride molar conc 99 mmol/L Normal 98-107 [facility] Comment on above: Performed By: #### H EMDF, PT, BMP3M, PHOS3, MG3, CK3 #### [facility] [address] [place] [place] [address] #### VD25H #### [facility] [address] [place] [address] Sodium molar conc 139 mmol/L Normal 135-145 [facility] Comment on above: Performed By: #### H EMDF, PT, BMP3M, PHOS3, MG3, CK3 #### [facility] [address] [place] [place] [address] #### VD25H #### [facility] [address] [place] [address] CR Chest Portableon 07-28-19 19 CR Chest Portable Patient Name: KATHYA HOOPER Diagnostic Radiology Exam Date/Time 07/27/2018 07:08:59 EDT Exam CR Chest Portable Ordering Physician MARIA EUGENIA PEREZ Accession Number [id number] CPT4 Codes 81146 () Reason For Exam ETT placement Report [...] Transcribed Date and Time: 07/27/2018 8:02 Normal [facility] Glucose,Bedsideon 07-27-2018 Glucose mass conc 151 mg/dL High 70-100 [facility] Comment on above: Result Comment: Test performed by glucose meter. Results may be 10%-15% lower than serum/plasma values. (CLIA ID [id number]) Performed By: #### H EMDF, PT, BMP3M, PHOS3, MG3, CK3 #### [facility] [address] [place], [place] #### VD25H #### [facility] [address] [place] [address] Glucose mass conc 131 mg/dL High 70-100 [facility] Comment on above: Result Comment: Test performed by glucose meter. Results may be 10%-15% lower than serum/plasma values. (CLIA ID [id number]) Performed By: #### H EMDF, PT, BMP3M, PHOS3, MG3, CK3 #### [facility] [address] [place], [place] #### VD25H #### [facility] [address] [place] [address] Glucose mass conc 123 mg/dL High 70-100 [facility] Comment on above: Result Comment: Test performed by glucose meter. Results may be 10%-15% lower than serum/plasma values. (CLIA ID [id number]) Performed By: #### H EMDF, PT, BMP3M, PHOS3, MG3, CK3 #### [facility] [address] [place], [place] #### VD25H #### [facility] [address] [place] [address] Glucose mass conc 133 mg/dL High 70-100 [facility] Comment on above: Result Comment: Test performed by glucose meter. Results may be 10%-15% lower than serum/plasma values. (CLIA ID [id number]) Performed By: #### H EMDF, PT, BMP3M, PHOS3, MG3, CK3 #### [address] #### VD25H #### [place] [address] [place] [address] Hemogram w/ Autodiffon 07-27 Erythrocyte distribution width Ratio (RBC) 13.5 % Normal 11.5-14.5 [facility] Comment on above: Performed By: #### H EMDF, PT, BMP3M, PHOS3, MG3, CK3 #### [address] #### VD25H #### [place] [address] [place] [address] Hematocrit Volume Fraction (Bld) 32.5 % Low 40.0-52.0 [facility] Comment on above: Performed By: #### H EMDF, PT, BMP3M, PHOS3, MG3, CK3 #### [address] #### VD25H #### [address] [place] [address] Hemoglobin mass conc (Bld) 11.1 g/dL Low 13.0-18.0 [facility] Comment on above: Performed By: #### H EMDF, PT, BMP3M, PHOS3, MG3, CK3 #### [address] #### VD25H #### [place] [address] [place] [address] MCH Entitic mass (RBC) 29.2 pg Normal 26.0-34.0 [facility] Comment on above: Performed By: #### H EMDF, PT, BMP3M, PHOS3, MG3, CK3 #### [address] [place], [place] #### VD25H #### [facility] [address] [place] [address] MCHC mass conc (RBC) 34.1 % Normal 32.0-36.0 [facility] Comment on above: Performed By: #### H EMDF, PT, BMP3M, PHOS3, MG3, CK3 #### [address] #### VD25H #### [facility] [address] [place] [address] MCV Entitic volume (RBC) 85.7 fL Normal 80.0-98.0 [facility] Comment on above: Performed By: #### H EMDF, PT, BMP3M, PHOS3, MG3, CK3 #### [address] #### VD25H #### [facility] [address] [place] [address] Platelet mean volume Entitic volume (Bld) 7.9 fL Normal 7.4-10.4 [facility] Comment on above: Performed By: #### H EMDF, PT, BMP3M, PHOS3, MG3, CK3 #### [address] #### VD25H #### [facility] [address] [place] [address] Platelets #/vol (Bld) 466 10*3/uL High 140-440 [facility] Comment on above: Performed By: #### H EMDF, PT, BMP3M, PHOS3, MG3, CK3 #### [address] #### VD25H #### [place] [address] [place] [address] RBC #/vol (Bld) 3.79 10*6/uL Low 4.40-5.90 [facility] Comment on above: Performed By: #### H EMDF, PT, BMP3M, PHOS3, MG3, CK3 #### [place] [address] [place], [place] #### VD25H #### [facility] [address] [place] [address] WBC #/vol (Bld) 18.7 10*3/uL High 3.6-10.7 [facility] Comment on above: Performed By: #### H EMDF, PT, BMP3M, PHOS3, MG3, CK3 #### [address] #### VD25H #### [place] [address] [place] [address] Magnesiumon 07-27-2018 Magnesium mass conc 2.1 mg/dL Normal 1.6-2.3 [facility] Comment on above: Performed By: #### H EMDF, PT, BMP3M, PHOS3, MG3, CK3 #### [address] #### VD25H #### [place] [address] [place] [address] Manual Diffon 07-27-2018 RBC morphology finding Nom (Bld) Normal Normal [facility] Comment on above: Performed By: #### H EMDF, PT, BMP3M, PHOS3, MG3, CK3 #### [address] [place], [place] #### VD25H #### [facility] [address] [place] [address] Abs Neutrophile Cnt 14.2 10*3/uL High 2.2-8.2 [facility] Comment on above: Performed By: #### H EMDF, PT, BMP3M, PHOS3, MG3, CK3 #### [address] #### VD25H #### [facility] [address] [place] [address] Atypical Lymphocytes 2 % Abnormal <1 [facility] Comment on above: Performed By: #### H EMDF, PT, BMP3M, PHOS3, MG3, CK3 #### [facility] [address] [place], [place] #### VD25H #### [facility] [address] [place] [address] Bands 5 % High 0-3 [facility] Comment on above: Performed By: #### H EMDF, PT, BMP3M, PHOS3, MG3, CK3 #### [facility] [address] [place], [place] #### VD25H #### [facility] [address] [place] [address] Eosinophils #/vol (Bld) 0.6 10*3/uL High 0.0-0.5 [facility] Comment on above: Performed By: #### H EMDF, PT, BMP3M, PHOS3, MG3, CK3 #### [place] [address] [place], [place] #### VD25H #### [facility] [address] [place] [address] Eosinophils/100 WBC (Bld) 3 % Normal 1-6 [facility] Comment on above: Performed By: #### H EMDF, PT, BMP3M, PHOS3, MG3, CK3 #### [facility] [address] [place], [place] #### VD25H #### [facility] [address] [place] [address] Lymphocytes #/vol (Bld) 2.1 10*3/uL Normal 1.1-4.5 [facility] Comment on above: Performed By: #### H EMDF, PT, BMP3M, PHOS3, MG3, CK3 #### [address] #### VD25H #### [facility] [address] [place] [address] Lymphocytes/100 WBC (Bld) 11 % Low 20-40 [facility] Comment on above: Performed By: #### H EMDF, PT, BMP3M, PHOS3, MG3, CK3 #### [facility] [address] [place], [place] #### VD25H #### [facility] [address] [place] [address] Monocytes #/vol (Bld) 1.5 10*3/uL High 0.2-1.1 [facility] Comment on above: Performed By: #### H EMDF, PT, BMP3M, PHOS3, MG3, CK3 #### [place] [address] [place], [place] #### VD25H #### [facility] [address] [place] [address] Monocytes/100 WBC (Bld) 8 % Normal 2-10 [facility] Comment on above: Performed By: #### H EMDF, PT, BMP3M, PHOS3, MG3, CK3 #### [place] [address] [place], [place] #### VD25H #### [facility] [address] [place] [address] NRBC 1 /100{WBCs} High -1-0 [facility] Comment on above: Result Comment: Newb orn (<60 days) 1-10 Adult <1 Performed By: #### H EMDF, PT, BMP3M, PHOS3, MG3, CK3 #### [facility] [address] [place], [place] #### VD25H #### [facility] [address] [place] [address] Seg Neutrophils 71 % Normal 40-[address] [facility] Comment on above: Performed By: #### H EMDF, PT, BMP3M, PHOS3, MG3, CK3 #### [facility] [address] [place] #### VD25H #### [facility] [address] [place] [address] Abs Baso Cnt 0.0 10*3/uL Normal 0.0-0.2 [facility] Comment on above: Performed By: #### H EMDF, PT, BMP3M, PHOS3, MG3, CK3 #### [facility] [address] [place] #### VD25H #### [facility] [address] [place] [address] Basophils/100 WBC (Bld) 0 % Normal 0-2 [facility] Comment on above: Performed By: #### H EMDF, PT, BMP3M, PHOS3, MG3, CK3 #### [place] [address] [place] #### VD25H #### [facility] [address] [place] [address] Cells counted 100 Normal [facility] Comment on above: Performed By: #### H EMDF, PT, BMP3M, PHOS3, MG3, CK3 #### [facility] [address] [place] #### VD25H #### [facility] [address] [place] [address] Phosphoruson 07-27-2018 Phosphate mass conc 3.0 mg/dL Normal 2.5-4.5 [facility] Comment on above: Performed By: #### H EMDF, PT, BMP3M, PHOS3, MG3, CK3 #### [place] [address] [place], [place] #### VD25H #### [facility] [address] [place] [address] VL Venous Duplex US Lower Ex t Bilateralon 07-27-2018 VL Venous Duplex US Lower Ext Bilateral Patient Name: KATHYA HOOPER Ultrasound Exam Date/Time 07/27/2018 10:56:18 EDT Exam VL Venous Duplex US Lower Ext Bilateral Ordering Physician ETIENNE MARTÍNEZ JULIE Accession Number [id number] CPT4 Codes 06251 () Reason For Exam edema Report [facility] --- Lower Extremity Venous Duplex Report Patient Name: Kathya Hooper : 1955 Study Date: 07/27/2018 W (63yrs) Age: 63 Account: [id number] Gender: M Loc: T209 BP: Ordering: Yesenia Martínez Technologist: Ordering Physician: Yesenia Martínez Member Of Parliament: Mary Man RVT Interpreting Physician: Ricardo Hall MD --- Location: [facility] --- INDICATIONS: Bilateral leg edema. [...] performed. The images were obtained using a [employer] E9 vascular ultrasound machine. The study was [...] --+ Electronically signed by: Ricardo Hall MD [id number] Final Dictated: 07/27/2018 12:55 pm Dictating Physician: RICARDO HALL Signed Date and Time: 07/27/2018 12:55 pm Signed by: RICARDO HALL [facility] Basic Metabolic Panelon 06-30 Calcium mass conc 7.9 mg/dL Low 8.4-10.4 [facility] Comment on above: Performed By: #### H EMDF, PT, BMP3M, PHOS3, MG3, CK3 #### [address] [place], [place] #### VD25H #### [facility] [address] [place] [address] Anion gap molar conc 9 Normal [facility] Comment on above: Performed By: #### H EMDF, PT, BMP3M, PHOS3, MG3, CK3 #### [address] #### VD25H #### [facility] [address] [place] [address] CO2 molar conc 24 mmol/L Normal 22-30 [facility] Comment on above: Performed By: #### H EMDF, PT, BMP3M, PHOS3, MG3, CK3 #### [address] #### VD25H #### [facility] [address] [place] [address] Creatinine mass conc 0.54 mg/dL Normal 0.52-1.25 [facility] Comment on above: Performed By: #### H EMDF, PT, BMP3M, PHOS3, MG3, CK3 #### [address] #### VD25H #### [facility] [address] [place] [address] GFR/1.73 sq M predicted among blacks MDRD vol rate/area (S/P/Bld) mL/min/{1.73_m2} Normal >60 [facility] Comment on above: Performed By: #### H EMDF, PT, BMP3M, PHOS3, MG3, CK3 #### [address] #### VD25H #### [facility] [address] [place] [address] GFR/1.73 sq M predicted among non-blacks MDRD vol rate/area (S/P/Bld) mL/min/{1.73_m2} Normal >60 [facility] Comment on above: Result Comment: Sour ce- MDRD equation with creatinine calibration to IDMS(NKDEP) eGFR not recommended for drug dose adjustment Performed By: #### H EMDF, PT, BMP3M, PHOS3, MG3, CK3 #### [facility] [address] [place], [place] #### VD25H #### [facility] [address] [place] [address] Glucose mass conc 166 mg/dL High 70-100 [facility] Comment on above: Performed By: #### H EMDF, PT, BMP3M, PHOS3, MG3, CK3 #### [address] [place] [address] [place], [place] #### VD25H #### [facility] [address] [place] [address] Urea nitrogen mass conc 21 mg/dL High 7-20 [facility] Comment on above: Performed By: #### H EMDF, PT, BMP3M, PHOS3, MG3, CK3 #### [place] [address] [place] #### VD25H #### [facility] [address] [place] [address] Chloride molar conc 107 mmol/L Normal 98-107 [facility] Comment on above: Performed By: #### H EMDF, PT, BMP3M, PHOS3, MG3, CK3 #### [place] [address] [place], [place] #### VD25H #### [facility] [address] [place] [address] Potassium molar conc 3.7 mmol/L Normal 3.5-5.1 [facility] Comment on above: Performed By: #### H EMDF, PT, BMP3M, PHOS3, MG3, CK3 #### [place] [address] [place] [address] #### VD25H #### [facility] [address] [place] [address] Sodium molar conc 140 mmol/L Normal 135-145 [facility] Comment on above: Performed By: #### H EMDF, PT, BMP3M, PHOS3, MG3, CK3 #### [facility] [address] [place], [place] #### VD25H #### [facility] [address] [place] [address] CR Chest Portableon 07-27-19 19 CR Chest Portable Patient Name: KATHYA HOOPER Diagnostic Radiology Exam Date/Time 07/26/2018 06:06:25 EDT Exam CR Chest Portable Ordering Physician MARIA EUGENIA PEREZ Accession Number [id number] CPT4 Codes 28105 () Reason For Exam ETT placement Report [...] Transcribed Date and Time: 07/26/2018 9:15 Normal [facility] Glucose,Bedsideon 07-26-2018 Glucose mass conc 160 mg/dL High 70-100 [facility] [employer] [facility] Comment on above: Result Comment: Test performed by glucose meter. Results may be 10%-15% lower than serum/plasma values. (CLIA ID [id number]) Performed By: #### H EMDF, PT, BMP3M, PHOS3, MG3, CK3 #### [facility] [address] [place], [place] #### VD25H #### [facility] [facility] [address] [place] [address] Glucose mass conc 166 mg/dL High 70-100 [facility] Comment on above: Result Comment: Test performed by glucose meter. Results may be 10%-15% lower than serum/plasma values. (CLIA ID [id number]) Performed By: #### H EMDF, PT, BMP3M, PHOS3, MG3, CK3 #### [facility] [address] [place] [address] #### VD25H #### [facility] [address] [place] [address] Glucose mass conc 183 mg/dL High 70-100 [facility] Comment on above: Result Comment: Test performed by glucose meter. Results may be 10%-15% lower than serum/plasma values. (CLIA ID [id number]) Performed By: #### H EMDF, PT, BMP3M, PHOS3, MG3, CK3 #### [facility] [address] [place] [address] #### VD25H #### [facility] [address] [place] [address] Glucose mass conc 151 mg/dL High 70-100 [facility] Comment on above: Result Comment: Test performed by glucose meter. Results may be 10%-15% lower than serum/plasma values. (CLIA ID [id number]) Performed By: #### H EMDF, PT, BMP3M, PHOS3, MG3, CK3 #### [facility] [employer] [address] #### VD25H #### [employer] [facility] [address] [place] [address] Hemogram w/ Autodiffon 07-26 Erythrocyte distribution width Ratio (RBC) 13.7 % Normal 11.5-14.5 [facility] Comment on above: Performed By: #### H EMDF, PT, BMP3M, PHOS3, MG3, CK3 #### [address] #### VD25H #### [facility] [address] [place] [address] Hematocrit Volume Fraction (Bld) 31.1 % Low 40.0-52.0 [facility] Comment on above: Performed By: #### H EMDF, PT, BMP3M, PHOS3, MG3, CK3 #### [address] #### VD25H #### [facility] [address] [place] [address] Hemoglobin mass conc (Bld) 10.6 g/dL Low 13.0-18.0 [facility] Comment on above: Performed By: #### H EMDF, PT, BMP3M, PHOS3, MG3, CK3 #### [address] #### VD25H #### [facility] [address] [place] [address] MCH Entitic mass (RBC) 29.2 pg Normal 26.0-34.0 [facility] Comment on above: Performed By: #### H EMDF, PT, BMP3M, PHOS3, MG3, CK3 #### [address] #### VD25H #### [facility] [address] [place] [address] MCHC mass conc (RBC) 34.0 % Normal 32.0-36.0 [facility] Comment on above: Performed By: #### H EMDF, PT, BMP3M, PHOS3, MG3, CK3 #### [address] #### VD25H #### [facility] [address] [place] [address] MCV Entitic volume (RBC) 86.1 fL Normal 80.0-98.0 [facility] Comment on above: Performed By: #### H EMDF, PT, BMP3M, PHOS3, MG3, CK3 #### [address] [place], [place] #### VD25H #### [facility] [address] [place] [address] Platelet mean volume Entitic volume (Bld) 8.3 fL Normal 7.4-10.4 [facility] Comment on above: Performed By: #### H EMDF, PT, BMP3M, PHOS3, MG3, CK3 #### [address] #### VD25H #### [facility] [address] [place] [address] Platelets #/vol (Bld) 364 10*3/uL Normal 140-440 [facility] Comment on above: Performed By: #### H EMDF, PT, BMP3M, PHOS3, MG3, CK3 #### [address] #### VD25H #### [facility] [address] [place] [address] RBC #/vol (Bld) 3.62 10*6/uL Low 4.40-5.90 [facility] Comment on above: Performed By: #### H EMDF, PT, BMP3M, PHOS3, MG3, CK3 #### [place] [address] [place], [place] #### VD25H #### [facility] [address] [place] [address] WBC #/vol (Bld) 15.2 10*3/uL High 3.6-10.7 [facility] Comment on above: Performed By: #### H EMDF, PT, BMP3M, PHOS3, MG3, CK3 #### [address] #### VD25H #### [facility] [address] [place] [address] Magnesiumon 07-26-2018 Magnesium mass conc 2.0 mg/dL Normal 1.6-2.3 [facility] Comment on above: Performed By: #### H EMDF, PT, BMP3M, PHOS3, MG3, CK3 #### [place] [address] [place], [place] #### VD25H #### [facility] [address] [place] [address] Manual Diffon 07-26-2018 Abs Neutrophile Cnt 12.8 10*3/uL High 2.2-8.2 [facility] Comment on above: Performed By: #### H EMDF, PT, BMP3M, PHOS3, MG3, CK3 #### [address] #### VD25H #### [place] [address] [place] [address] Lymphocytes #/vol (Bld) 1.4 10*3/uL Normal 1.1-4.5 [facility] Comment on above: Performed By: #### H EMDF, PT, BMP3M, PHOS3, MG3, CK3 #### [address] #### VD25H #### [facility] [address] [place] [address] Lymphocytes/100 WBC (Bld) 9 % Low 20-40 [facility] Comment on above: Performed By: #### H EMDF, PT, BMP3M, PHOS3, MG3, CK3 #### [address] #### VD25H #### [facility] [address] [place] [address] Monocytes #/vol (Bld) 1.1 10*3/uL Normal 0.2-1.1 [facility] Comment on above: Performed By: #### H EMDF, PT, BMP3M, PHOS3, MG3, CK3 #### [address] #### VD25H #### [facility] [address] [place] [address] Monocytes/100 WBC (Bld) 7 % Normal 2-10 [facility] Comment on above: Performed By: #### H EMDF, PT, BMP3M, PHOS3, MG3, CK3 #### [facility] [address] [place], [place] #### VD25H #### [facility] [address] [place] [address] RBC morphology finding Nom (Bld) Normal Normal [facility] Comment on above: Performed By: #### H EMDF, PT, BMP3M, PHOS3, MG3, CK3 #### [place] [address] [place], [place] #### VD25H #### [facility] [address] [place] [address] Seg Neutrophils 84 % High 40-[address] [facility] Comment on above: Performed By: #### H EMDF, PT, BMP3M, PHOS3, MG3, CK3 #### [place] [address] [place], [place] #### VD25H #### [facility] [address] [place] [address] Abs Baso Cnt 0.0 10*3/uL Normal 0.0-0.2 [facility] Comment on above: Performed By: #### H EMDF, PT, BMP3M, PHOS3, MG3, CK3 #### [facility] [address] [place] #### VD25H #### [facility] [address] [place] [address] Bands 0 % Normal 0-3 [facility] Comment on above: Performed By: #### H EMDF, PT, BMP3M, PHOS3, MG3, CK3 #### [facility] [address] [place], [place] #### VD25H #### [facility] [address] [place] [address] Basophils/100 WBC (Bld) 0 % Normal 0-2 [facility] Comment on above: Performed By: #### H EMDF, PT, BMP3M, PHOS3, MG3, CK3 #### [place] [place], [place] #### VD25H #### [facility] [address] [place] [address] Cells counted 100 Normal [facility] Comment on above: Performed By: #### H EMDF, PT, BMP3M, PHOS3, MG3, CK3 #### [address] #### VD25H #### [facility] [address] [place] [address] Eosinophils #/vol (Bld) 0.0 10*3/uL Normal 0.0-0.5 [facility] Comment on above: Performed By: #### H EMDF, PT, BMP3M, PHOS3, MG3, CK3 #### [address] #### VD25H #### [facility] [address] [place] [address] Eosinophils/100 WBC (Bld) 0 % Low 1-6 [facility] Comment on above: Performed By: #### H EMDF, PT, BMP3M, PHOS3, MG3, CK3 #### [address] #### VD25H #### [facility] [address] [place] [address] Phosphoruson 07-26-2018 Phosphate mass conc 3.1 mg/dL Normal 2.5-4.5 [facility] Comment on above: Performed By: #### H EMDF, PT, BMP3M, PHOS3, MG3, CK3 #### [address] #### VD25H #### [facility] [address] [place] [address] Vancomycin Troughon 07-27-19 19 Vancomycin Trough 8.9 ug/mL Low 15.0-20.0 [facility] Comment on above: Result Comment: . Performed By: #### H EMDF, PT, BMP3M, PHOS3, MG3, CK3 #### [address] #### VD25H #### [facility] [address] [place] [address] Arterial Blood Gaseson 07-25 CO2 molar conc 22.0 mmol/L Low 23.0-27.[address] [facility] Comment on above: Performed By: #### H EMDF, PT, BMP3M, PHOS3, MG3, CK3 #### [address] #### VD25H #### [facility] [address] [place] [address] HCO3 molar conc (Bld) 21.1 mmol/L Normal 21.0-25.0 [facility] Comment on above: Performed By: #### H EMDF, PT, BMP3M, PHOS3, MG3, CK3 #### [address] #### VD25H #### [facility] [address] [place] [address] Hemoglobin mass conc (Bld) 10.1 g/dL Normal ScreenOnly [facility] Comment on above: Performed By: #### H EMDF, PT, BMP3M, PHOS3, MG3, CK3 #### [address] #### VD25H #### [facility] [address] [place] [address] Oxygen ppres (Bld) 88.3 mm[Hg] Normal 80.0-100.0 [facility] Comment on above: Performed By: #### H EMDF, PT, BMP3M, PHOS3, MG3, CK3 #### [address] #### VD25H #### [facility] [address] [place] [address] Oxygen saturation in Blood 96.8 % Normal 95.0-100.0 [facility] Comment on above: Performed By: #### H EMDF, PT, BMP3M, PHOS3, MG3, CK3 #### [facility] [address] [place], [place] #### VD25H #### [facility] [address] [place] [address] pCO2 29.9 mm[Hg] Low 35.0-45.0 [facility] Comment on above: Performed By: #### H EMDF, PT, BMP3M, PHOS3, MG3, CK3 #### [place] [address] [place], [place] #### VD25H #### [facility] [address] [place] [address] pH (Bld) 7.467 High 7.350-7.450 [facility] Comment on above: Performed By: #### H EMDF, PT, BMP3M, PHOS3, MG3, CK3 #### [place] [address] [place], [place] #### VD25H #### [facility] [address] [place] [address] Std Base Excess -1.9 mmol/L Normal -3.0-3.0 [facility] Comment on above: Performed By: #### H EMDF, PT, BMP3M, PHOS3, MG3, CK3 #### [place] [place], [place] #### VD25H #### [facility] [address] [place] [address] FIO2 .30 Normal [facility] Comment on above: Performed By: #### H EMDF, PT, BMP3M, PHOS3, MG3, CK3 #### [place] [address] [place], [place] #### VD25 #### [place] [address] [place] [address] Basic Metabolic Panelon -2 Calcium mass conc 8.1 mg/dL Low 8.4-10.4 [facility] Comment on above: Performed By: #### H EMDF, PT, BMP3M, PHOS3, MG3, CK3 #### [address] #### VD25H #### [place] [address] [place] [address] Anion gap molar conc 8 Normal [facility] Comment on above: Performed By: #### H EMDF, PT, BMP3M, PHOS3, MG3, CK3 #### [address] #### VD25H #### [address] [place] [address] CO2 molar conc 24 mmol/L Normal 22-30 [facility] Comment on above: Performed By: #### H EMDF, PT, BMP3M, PHOS3, MG3, CK3 #### [address] #### VD25H #### [address] [place] [address] Creatinine mass conc 0.55 mg/dL Normal 0.52-1.25 [facility] Comment on above: Performed By: #### H EMDF, PT, BMP3M, PHOS3, MG3, CK3 #### [address] #### VD25H #### [place] [address] [place] [address] GFR/1.73 sq M predicted among blacks MDRD vol rate/area (S/P/Bld) mL/min/{1.73_m2} Normal >60 [facility] Comment on above: Performed By: #### H EMDF, PT, BMP3M, PHOS3, MG3, CK3 #### [address] #### VD25H #### [facility] [address] [place] [address] GFR/1.73 sq M predicted among non-blacks MDRD vol rate/area (S/P/Bld) mL/min/{1.73_m2} Normal >60 [facility] Comment on above: Result Comment: Sour ce- MDRD equation with creatinine calibration to IDMS(NKDEP) eGFR not recommended for drug dose adjustment Performed By: #### H EMDF, PT, BMP3M, PHOS3, MG3, CK3 #### [address] [facility] #### VD25H #### [facility] [address] [place] [address] Glucose mass conc 184 mg/dL High 70-100 [facility] Comment on above: Performed By: #### H EMDF, PT, BMP3M, PHOS3, MG3, CK3 #### [place] [address] [facility] #### VD25H #### [facility] [address] [place] [address] Urea nitrogen mass conc 20 mg/dL Normal 7-20 S [facility] Comment on above: Performed By: #### H EMDF, PT, BMP3M, PHOS3, MG3, CK3 #### [address] #### VD25H #### [facility] [address] [place] [address] Chloride molar conc 109 mmol/L High 98-107 [facility] Comment on above: Performed By: #### H EMDF, PT, BMP3M, PHOS3, MG3, CK3 #### [address], [place] #### VD25H #### [facility] [address] [place] [address] Potassium molar conc 4.0 mmol/L Normal 3.5-5.1 [facility] Comment on above: Performed By: #### H EMDF, PT, BMP3M, PHOS3, MG3, CK3 #### [facility] [address] [place] [address] #### VD25H #### [facility] [address] [place] [address] Sodium molar conc 141 mmol/L Normal 135-145 [facility] Comment on above: Performed By: #### H EMDF, PT, BMP3M, PHOS3, MG3, CK3 #### [facility] [address] [place] [address] #### VD25H #### [facility] [address] [place] [address] CR Chest Portableon 07-26-19 19 CR Chest Portable Patient Name: KATHYA HOOPER Diagnostic Radiology Exam Date/Time 07/25/2018 06:39:42 EDT Exam CR Chest Portable Ordering Physician MARIA EUGENIA PEREZ Accession Number [id number] CPT4 Codes 65240 () Reason For Exam ETT placement Report [...] Transcribed Date and Time: 07/25/2018 7:45 Normal [facility] CULTURE URINEon 07-25-2018 CULTURE URINE 1 Organism [...] 4 S Trimeth/Sulfa(CHRISTI) <= 20 S Normal [employer] [facility] Comment on above: Order Comment: Speci men Source Comment:Urine, clean catch Performed By: #### H EMDF, PT, BMP3M, PHOS3, MG3, CK3 #### [facility] [address] [place] [address] #### VD25H #### [employer] [address] [place] [address] Glucose,Bedsideon 07-25-2018 Glucose mass conc 140 mg/dL High 70-100 [facility] Comment on above: Result Comment: Test performed by glucose meter. Results may be 10%-15% lower than serum/plasma values. (CLIA ID [id number]) Performed By: #### H EMDF, PT, BMP3M, PHOS3, MG3, CK3 #### [facility] [address] [place] [address] #### VD25H #### [facility] [address] [place] [address] Glucose mass conc 158 mg/dL High 70-100 [facility] Comment on above: Result Comment: Test performed by glucose meter. Results may be 10%-15% lower than serum/plasma values. (CLIA ID [id number]) Performed By: #### H EMDF, PT, BMP3M, PHOS3, MG3, CK3 #### [facility] [address] [place] [address] #### VD25H #### [facility] [facility] [address] [place] [address] Glucose mass conc 172 mg/dL High 70-100 [facility] Comment on above: Result Comment: Test performed by glucose meter. Results may be 10%-15% lower than serum/plasma values. (CLIA ID [id number]) Performed By: #### H EMDF, PT, BMP3M, PHOS3, MG3, CK3 #### [facility] [address] [place] [address] #### VD25H #### [employer] [facility] [address] [place] [address] Glucose mass conc 169 mg/dL High 70-100 [facility] Comment on above: Result Comment: Test performed by glucose meter. Results may be 10%-15% lower than serum/plasma values. (CLIA ID [id number]) Performed By: #### H EMDF, PT, BMP3M, PHOS3, MG3, CK3 #### [facility] [address] [place] [address] #### VD25H #### [employer] [facility] [address] [place] [address] Glucose mass conc 165 mg/dL High 70-100 [facility] Comment on above: Result Comment: Test performed by glucose meter. Results may be 10%-15% lower than serum/plasma values. (CLIA ID [id number]) Performed By: #### H EMDF, PT, BMP3M, PHOS3, MG3, CK3 #### [place] [address] [place], [place] #### VD25H #### [facility] [address] [place] [address] Hemogram w/ Autodiffon 07-25 Erythrocyte distribution width Ratio (RBC) 13.6 % Normal 11.5-14.5 [facility] Comment on above: Performed By: #### H EMDF, PT, BMP3M, PHOS3, MG3, CK3 #### [place] [address] [place] #### VD25H #### [facility] [address] [place] [address] Hematocrit Volume Fraction (Bld) 31.3 % Low 40.0-52.0 [facility] Comment on above: Performed By: #### H EMDF, PT, BMP3M, PHOS3, MG3, CK3 #### [address] [place] #### VD25H #### [facility] [address] [place] [address] Hemoglobin mass conc (Bld) 10.6 g/dL Low 13.0-18.0 [facility] Comment on above: Performed By: #### H EMDF, PT, BMP3M, PHOS3, MG3, CK3 #### [address] [place] [address] [place], [place] #### VD25H #### [facility] [address] [place] [address] MCH Entitic mass (RBC) 29.4 pg Normal 26.0-34.0 [facility] Comment on above: Performed By: #### H EMDF, PT, BMP3M, PHOS3, MG3, CK3 #### [address] [place] #### VD25H #### [place] [address] [place] [address] MCHC mass conc (RBC) 33.8 % Normal 32.0-36.0 [facility] Comment on above: Performed By: #### H EMDF, PT, BMP3M, PHOS3, MG3, CK3 #### [address] [place] #### VD25H #### [facility] [address] [place] [address] MCV Entitic volume (RBC) 86.9 fL Normal 80.0-98.0 [facility] Comment on above: Performed By: #### H EMDF, PT, BMP3M, PHOS3, MG3, CK3 #### [address] #### VD25H #### [facility] [address] [place] [address] Platelet mean volume Entitic volume (Bld) 8.3 fL Normal 7.4-10.4 [facility] Comment on above: Performed By: #### H EMDF, PT, BMP3M, PHOS3, MG3, CK3 #### [address] #### VD25H #### [facility] [address] [place] [address] Platelets #/vol (Bld) 360 10*3/uL Normal 140-440 [facility] Comment on above: Performed By: #### H EMDF, PT, BMP3M, PHOS3, MG3, CK3 #### [address] #### VD25H #### [facility] [address] [place] [address] RBC #/vol (Bld) 3.61 10*6/uL Low 4.40-5.90 [facility] Comment on above: Performed By: #### H EMDF, PT, BMP3M, PHOS3, MG3, CK3 #### [address] #### VD25H #### [facility] [address] [place] [address] WBC #/vol (Bld) 14.7 10*3/uL High 3.6-10.7 [facility] Comment on above: Performed By: #### H EMDF, PT, BMP3M, PHOS3, MG3, CK3 #### [facility] [address] [place], [place] #### VD25H #### [facility] [address] [place] [address] Magnesiumon 07-25-2018 Magnesium mass conc 2.1 mg/dL Normal 1.6-2.3 [facility] Comment on above: Performed By: #### H EMDF, PT, BMP3M, PHOS3, MG3, CK3 #### [address] #### VD25H #### [facility] [address] [place] [address] Manual Diffon 07-25-2018 Abs Baso Cnt 0.1 10*3/uL Normal 0.0-0.2 [facility] Comment on above: Performed By: #### H EMDF, PT, BMP3M, PHOS3, MG3, CK3 #### [address] #### VD25H #### [facility] [address] [place] Abs Neutrophile Cnt 12.9 10*3/uL High 2.2-8.2 [facility] Comment on above: Performed By: #### H EMDF, PT, BMP3M, PHOS3, MG3, CK3 #### [address] #### VD25H #### [facility] [address] [place] [address] Anisocytosis Ql (Bld) Slight Normal [facility] Comment on above: Performed By: #### H EMDF, PT, BMP3M, PHOS3, MG3, CK3 #### [address] #### VD25H #### [facility] [address] [place] [address] Bands 4 % High 0-3 [facility] Comment on above: Performed By: #### H EMDF, PT, BMP3M, PHOS3, MG3, CK3 #### [facility] [address] [place], [place] #### VD25H #### [facility] [address] [place] [address] Basophils/100 WBC (Bld) 1 % Normal 0-2 S [facility] Comment on above: Performed By: #### H EMDF, PT, BMP3M, PHOS3, MG3, CK3 #### [place] [place] #### VD25H #### [facility] [address] [place] [address] Eosinophils #/vol (Bld) 0.6 10*3/uL High 0.0-0.5 [facility] Comment on above: Performed By: #### H EMDF, PT, BMP3M, PHOS3, MG3, CK3 #### [address] #### VD25H #### [facility] [address] [place] [address] Eosinophils/100 WBC (Bld) 4 % Normal 1-6 [facility] Comment on above: Performed By: #### H EMDF, PT, BMP3M, PHOS3, MG3, CK3 #### [place] [place], [place] #### VD25H #### [facility] [address] [place] [address] Lymphocytes #/vol (Bld) 0.1 10*3/uL Low 1.1-4.5 [facility] Comment on above: Performed By: #### H EMDF, PT, BMP3M, PHOS3, MG3, CK3 #### [place] [place] #### VD25H #### [facility] [address] [place] [address] Lymphocytes/100 WBC (Bld) 1 % Low 20-40 [facility] Comment on above: Performed By: #### H EMDF, PT, BMP3M, PHOS3, MG3, CK3 #### [address] [place], [place] #### VD25H #### [facility] [address] [place] [address] Macrocytosis Slight Normal [facility] Comment on above: Performed By: #### H EMDF, PT, BMP3M, PHOS3, MG3, CK3 #### [address] #### VD25H #### [place] [address] [place] [address] Metamyelocytes 2 % Abnormal <1 [facility] Comment on above: Performed By: #### H EMDF, PT, BMP3M, PHOS3, MG3, CK3 #### [address] #### VD25H #### [place] [address] [place] [address] Microcytosis Slight Normal [facility] Comment on above: Performed By: #### H EMDF, PT, BMP3M, PHOS3, MG3, CK3 #### [address] #### VD25H #### [place] [address] [place] [address] Monocytes #/vol (Bld) 0.6 10*3/uL Normal 0.2-1.1 [facility] Comment on above: Performed By: #### H EMDF, PT, BMP3M, PHOS3, MG3, CK3 #### [address] [place] #### VD25H #### [place] [address] [place] [address] Monocytes/100 WBC (Bld) 4 % Normal 2-10 S [facility] Comment on above: Performed By: #### H EMDF, PT, BMP3M, PHOS3, MG3, CK3 #### [facility] [address] [place], [place] #### VD25H #### [facility] [address] [place] [address] RBC morphology finding Nom (Bld) ABNORMAL Normal [facility] Comment on above: Performed By: #### H EMDF, PT, BMP3M, PHOS3, MG3, CK3 #### [place] [place] #### VD25H #### [facility] [address] [place] [address] Seg Neutrophils 84 % High 40-[address] [facility] Comment on above: Performed By: #### H EMDF, PT, BMP3M, PHOS3, MG3, CK3 #### [address] #### VD25H #### [facility] [address] [place] [address] Cells counted 100 Normal [facility] Comment on above: Performed By: #### H EMDF, PT, BMP3M, PHOS3, MG3, CK3 #### [place] [address] [place], [place] #### VD25H #### [facility] [address] [place] [address] Phosphoruson 07-25-2018 Phosphate mass conc 2.7 mg/dL Normal 2.5-4.5 [facility] Comment on above: Performed By: #### H EMDF, PT, BMP3M, PHOS3, MG3, CK3 #### [place] [place] #### VD25H #### [facility] [address] [place] [address] Triglycerideon 07-25-2018 Triglyceride mass conc 82 mg/dL Normal <150 [facility] Comment on above: Performed By: #### H EMDF, PT, BMP3M, PHOS3, MG3, CK3 #### [address] [place], [place] #### VD25H #### [facility] [address] [place] [address] Basic Metabolic Panelon - Calcium mass conc 8.0 mg/dL Low 8.4-10.4 [facility] Comment on above: Performed By: #### H EMDF, PT, BMP3M, PHOS3, MG3, CK3 #### [place] [place] #### VD25H #### [facility] [address] [place] [address] Anion gap molar conc 9 Normal [facility] Comment on above: Performed By: #### H EMDF, PT, BMP3M, PHOS3, MG3, CK3 #### [address] #### VD25H #### [facility] [address] [place] [address] CO2 molar conc 23 mmol/L Normal 22-30 [facility] Comment on above: Performed By: #### H EMDF, PT, BMP3M, PHOS3, MG3, CK3 #### [address] #### VD25H #### [facility] [address] [place] [address] Creatinine mass conc 0.71 mg/dL Normal 0.52-1.25 [facility] Comment on above: Performed By: #### H EMDF, PT, BMP3M, PHOS3, MG3, CK3 #### [address] #### VD25H #### [facility] [address] [place] [address] GFR/1.73 sq M predicted among blacks MDRD vol rate/area (S/P/Bld) mL/min/{1.73_m2} Normal >60 [facility] Comment on above: Performed By: #### H EMDF, PT, BMP3M, PHOS3, MG3, CK3 #### [facility] [address] [place], [place] #### VD25H #### [facility] [address] [place] [address] GFR/1.73 sq M predicted among non-blacks MDRD vol rate/area (S/P/Bld) mL/min/{1.73_m2} Normal >60 [facility] Comment on above: Result Comment: Sour ce- MDRD equation with creatinine calibration to IDMS(NKDEP) eGFR not recommended for drug dose adjustment Performed By: #### H EMDF, PT, BMP3M, PHOS3, MG3, CK3 #### [place] [place] #### VD25H #### [facility] [address] [place] [address] Glucose mass conc 160 mg/dL High 70-100 [facility] Comment on above: Performed By: #### H EMDF, PT, BMP3M, PHOS3, MG3, CK3 #### [facility] [address] [place] #### VD25H #### [facility] [address] [place] [address] Urea nitrogen mass conc 28 mg/dL High 7-20 S [facility] Comment on above: Performed By: #### H EMDF, PT, BMP3M, PHOS3, MG3, CK3 #### [facility] [address] [place] #### VD25H #### [facility] [address] [place] [address] Chloride molar conc 109 mmol/L High 98-107 [facility] Comment on above: Performed By: #### H EMDF, PT, BMP3M, PHOS3, MG3, CK3 #### [facility] [address] [place], [place] #### VD25H #### [facility] [address] [place] [address] Potassium molar conc 3.7 mmol/L Normal 3.5-5.1 [facility] Comment on above: Performed By: #### H EMDF, PT, BMP3M, PHOS3, MG3, CK3 #### [facility] [address] [place] [address] #### VD25H #### [facility] [address] [place] [address] Sodium molar conc 141 mmol/L Normal 135-145 [facility] Comment on above: Performed By: #### H EMDF, PT, BMP3M, PHOS3, MG3, CK3 #### [facility] [address] [place] [address] #### VD25H #### [facility] [address] [place] [address] CR Chest Portableon 07-25-19 19 CR Chest Portable Patient Name: KATHYA HOOPER Diagnostic Radiology Exam Date/Time 07/24/2018 13:12:47 EDT Exam CR Chest Portable Ordering Physician DO WOLFF KATHRYN C Accession Number [id number] CPT4 Codes 09471 () Reason For Exam line placement Report [...] Transcribed Date and Time: 07/24/2018 3:10 Normal [facility] CR Chest Portable Patient Name: KATHYA HOOPER Diagnostic Radiology Exam Date/Time 07/24/2018 07:11:26 EDT Exam CR Chest Portable Ordering Physician MARIA EUGENIA PEREZ Accession Number [id number] CPT4 Codes 70705 () Reason For Exam ETT placement Report [...] Dictated: 07/24/2018 7:31 am Dictating Physician: MD CANCINO AHMAD Signed Date and Time: 07/24/2018 7:33 am Signed by: MD CANCINO AHMAD Transcribed Date and Time: 07/24/2018 7:31 Normal [facility] CULT./ST. RESPIRATORYon - CULT./ST. RESPIRATORY CULT./ST. RESPIRAT ORY --> Status: [...] 1 S Trimeth/Sulfa(CHRISTI) <= 20 S Normal [employer] [facility] Comment on above: Order Comment: Speci men Source Comment:Endotracheal Performed By: #### H EMDF, PT, BMP3M, PHOS3, MG3, CK3 #### [facility] [employer] [address] [address] #### VD25H #### [facility] [address] [place] [address] CULTURE URINEon 07-24-2018 CULTURE URINE 1 Organism [...] 4 S Trimeth/Sulfa(CHRISTI) <= 20 S Normal [facility] Comment on above: Order Comment: Speci men Source Comment:Urine, clean catch Performed By: #### H EMDF, PT, BMP3M, PHOS3, MG3, CK3 #### [facility] [place] [address] [place] [address] #### VD25H #### [facility] [employer] [facility] [address] [place] [address] Creatinine, Ur Randomon 06-30 Creatinine, Ur Random 49.5 mg/dL Normal No Range [facility] Comment on above: Performed By: #### H EMDF, PT, BMP3M, PHOS3, MG3, CK3 #### [employer] [facility] [address] [place] [address] #### VD25H #### [facility] [employer] [facility] [address] [place] [address] Glucose,Bedsideon 07-24-2018 Glucose mass conc 124 mg/dL High 70-100 [facility] Comment on above: Result Comment: Test performed by glucose meter. Results may be 10%-15% lower than serum/plasma values. (CLIA ID [id number]) Performed By: #### H EMDF, PT, BMP3M, PHOS3, MG3, CK3 #### [facility] [employer] [facility] [address] [place], [place] #### VD25H #### [employer] [facility] [address] [place] [address] Glucose mass conc 152 mg/dL High 70-100 [facility] Comment on above: Result Comment: Test performed by glucose meter. Results may be 10%-15% lower than serum/plasma values. (CLIA ID [id number]) Performed By: #### H EMDF, PT, BMP3M, PHOS3, MG3, CK3 #### [facility] [address] #### VD25H #### [employer] [facility] [address] [place] [address] Glucose mass conc 149 mg/dL High 70-100 [facility] Comment on above: Result Comment: Test performed by glucose meter. Results may be 10%-15% lower than serum/plasma values. (CLIA ID [id number]) Performed By: #### H EMDF, PT, BMP3M, PHOS3, MG3, CK3 #### [employer] [address] #### VD25H #### [employer] [facility] [address] [place] [address] Hemogram w/ Autodiffon 07-24 Erythrocyte distribution width Ratio (RBC) 13.7 % Normal 11.5-14.5 [facility] Comment on above: Performed By: #### H EMDF, PT, BMP3M, PHOS3, MG3, CK3 #### [employer] [address] #### VD25H #### [facility] [employer] [facility] [address] [place] [address] Hematocrit Volume Fraction (Bld) 31.4 % Low 40.0-52.0 [facility] Comment on above: Performed By: #### H EMDF, PT, BMP3M, PHOS3, MG3, CK3 #### [address] #### VD25H #### [facility] [address] [place] [address] Hemoglobin mass conc (Bld) 10.7 g/dL Low 13.0-18.0 [facility] Comment on above: Performed By: #### H EMDF, PT, BMP3M, PHOS3, MG3, CK3 #### [address] #### VD25H #### [facility] [address] [place] [address] MCH Entitic mass (RBC) 29.4 pg Normal 26.0-34.0 [facility] Comment on above: Performed By: #### H EMDF, PT, BMP3M, PHOS3, MG3, CK3 #### [address] #### VD25H #### [facility] [address] [place] [address] MCHC mass conc (RBC) 33.9 % Normal 32.0-36.0 [facility] Comment on above: Performed By: #### H EMDF, PT, BMP3M, PHOS3, MG3, CK3 #### [address] #### VD25H #### [facility] [address] [place] [address] MCV Entitic volume (RBC) 86.8 fL Normal 80.0-98.0 [facility] Comment on above: Performed By: #### H EMDF, PT, BMP3M, PHOS3, MG3, CK3 #### [address] #### VD25H #### [facility] [address] [place] [address] Platelet mean volume Entitic volume (Bld) 8.6 fL Normal 7.4-10.4 [facility] Comment on above: Performed By: #### H EMDF, PT, BMP3M, PHOS3, MG3, CK3 #### [facility] [address] [place] #### VD25H #### [facility] [address] [place] [address] Platelets #/vol (Bld) 304 10*3/uL Normal 140-440 [facility] Comment on above: Performed By: #### H EMDF, PT, BMP3M, PHOS3, MG3, CK3 #### [address] [place] [address] [place], [place] #### VD25H #### [facility] [address] [place] [address] RBC #/vol (Bld) 3.62 10*6/uL Low 4.40-5.90 [facility] Comment on above: Performed By: #### H EMDF, PT, BMP3M, PHOS3, MG3, CK3 #### [address] #### VD25H #### [facility] [address] [place] [address] WBC #/vol (Bld) 14.0 10*3/uL High 3.6-10.7 [facility] Comment on above: Performed By: #### H EMDF, PT, BMP3M, PHOS3, MG3, CK3 #### [address] [place], [place] #### VD25H #### [facility] [address] [place] [address] Magnesiumon 07-24-2018 Magnesium mass conc 2.2 mg/dL Normal 1.6-2.3 [facility] Comment on above: Performed By: #### H EMDF, PT, BMP3M, PHOS3, MG3, CK3 #### [address] #### VD25H #### [facility] [address] [place] [address] Manual Diffon 07-24-2018 Abs Baso Cnt 0.0 10*3/uL Normal 0.0-0.2 [facility] Comment on above: Performed By: #### H EMDF, PT, BMP3M, PHOS3, MG3, CK3 #### [address] #### VD25H #### [facility] [address] [place] [address] Abs Neutrophile Cnt 12.2 10*3/uL High 2.2-8.2 [facility] Comment on above: Performed By: #### H EMDF, PT, BMP3M, PHOS3, MG3, CK3 #### [address] #### VD25H #### [place] [address] [place] [address] Eosinophils #/vol (Bld) 0.4 10*3/uL Normal 0.0-0.5 [facility] Comment on above: Performed By: #### H EMDF, PT, BMP3M, PHOS3, MG3, CK3 #### [address] #### VD25H #### [facility] [address] [place] [address] Eosinophils/100 WBC (Bld) 3 % Normal 1-6 [facility] Comment on above: Performed By: #### H EMDF, PT, BMP3M, PHOS3, MG3, CK3 #### [address] #### VD25H #### [facility] [address] [place] [address] Lymphocytes #/vol (Bld) 1.0 10*3/uL Low 1.1-4.5 [facility] Comment on above: Performed By: #### H EMDF, PT, BMP3M, PHOS3, MG3, CK3 #### [address] #### VD25H #### [facility] [address] [place] [address] Lymphocytes/100 WBC (Bld) 7 % Low 20-40 [facility] Comment on above: Performed By: #### H EMDF, PT, BMP3M, PHOS3, MG3, CK3 #### [place] [address] [address] [place] #### VD25H #### [facility] [address] [place] [address] Monocytes #/vol (Bld) 0.4 10*3/uL Normal 0.2-1.1 [facility] Comment on above: Performed By: #### H EMDF, PT, BMP3M, PHOS3, MG3, CK3 #### [address] [place] [address] [address] [place] #### VD25H #### [place] [address] [place] [address] Monocytes/100 WBC (Bld) 3 % Normal 2-10 S [facility] Comment on above: Performed By: #### H EMDF, PT, BMP3M, PHOS3, MG3, CK3 #### [address] [place] [address] [address] [place] #### VD25H #### [facility] [address] [place] [address] RBC morphology finding Nom (Bld) Normal Normal [facility] Comment on above: Performed By: #### H EMDF, PT, BMP3M, PHOS3, MG3, CK3 #### [place] [address] [address] [place] #### VD25H #### [facility] [address] [place] [address] Seg Neutrophils 87 % High 40-80 [facility] Comment on above: Performed By: #### H EMDF, PT, BMP3M, PHOS3, MG3, CK3 #### [place] [address] [place] #### VD25H #### [facility] [address] [place] [address] Bands 0 % Normal 0-3 [facility] Comment on above: Performed By: #### H EMDF, PT, BMP3M, PHOS3, MG3, CK3 #### [place] [address] [place] #### VD25H #### [facility] [address] [place] [address] Basophils/100 WBC (Bld) 0 % Normal 0-2 [facility] Comment on above: Performed By: #### H EMDF, PT, BMP3M, PHOS3, MG3, CK3 #### [address] [place] [address] [address] [place] #### VD25H #### [facility] [address] [place] [address] Cells counted 100 Normal [facility] Comment on above: Performed By: #### H EMDF, PT, BMP3M, PHOS3, MG3, CK3 #### [address] [place], [place] #### VD25H #### [facility] [address] [place] [address] Phosphoruson 07-24-2018 Phosphate mass conc 2.7 mg/dL Normal 2.5-4.5 [facility] Comment on above: Performed By: #### H EMDF, PT, BMP3M, PHOS3, MG3, CK3 #### [address] [place] [place] #### VD25H #### [facility] [address] [place] [address] Triglycerideon 07-24-2018 Triglyceride mass conc 78 mg/dL Normal <150 [facility] Comment on above: Performed By: #### H EMDF, PT, BMP3M, PHOS3, MG3, CK3 #### [address] [place] #### VD25H #### [facility] [address] [place] [address] Urea Nitrogen,Ur Randomon Urea nitrogen mass conc 1199 mg/dL Normal No Range S [facility] Comment on above: Performed By: #### H EMDF, PT, BMP3M, PHOS3, MG3, CK3 #### [facility] [address] [place] #### VD25H #### [facility] [address] [place] [address] Add on test from HISon 07-23 Add on test from HIS Accepted Normal [facility] Comment on above: Result Comment: Spec imen available & acceptable for analysis. Performed By: #### H EMDF, PT, BMP3M, PHOS3, MG3, CK3 #### [address] [place] [address] [place], [place] #### VD25H #### [facility] [address] [place] [address] Arterial Blood Gaseson 07-23 CO2 molar conc 23.0 mmol/L Normal 23.0-27.[address] [facility] Comment on above: Performed By: #### H EMDF, PT, BMP3M, PHOS3, MG3, CK3 #### [place] [address] [place] #### VD25H #### [facility] [address] [place] [address] HCO3 molar conc (Bld) 22.0 mmol/L Normal 21.0-25.0 [facility] Comment on above: Performed By: #### H EMDF, PT, BMP3M, PHOS3, MG3, CK3 #### [address] [place] [place] #### VD25H #### [facility] [address] [place] [address] Hemoglobin mass conc (Bld) 10.9 g/dL Normal ScreenOnly [facility] Comment on above: Performed By: #### H EMDF, PT, BMP3M, PHOS3, MG3, CK3 #### [address] [place] [address] [place], [place] #### VD25H #### [facility] [address] [place] [address] Oxygen ppres (Bld) 102.4 mm[Hg] High 80.0-100.0 [facility] Comment on above: Performed By: #### H EMDF, PT, BMP3M, PHOS3, MG3, CK3 #### [place] [address] [place] #### VD25H #### [facility] [address] [place] [address] Oxygen saturation in Blood 97.7 % Normal 95.0-100.0 [facility] Comment on above: Performed By: #### H EMDF, PT, BMP3M, PHOS3, MG3, CK3 #### [address] #### VD25H #### [place] [address] [place] [address] pCO2 34.4 mm[Hg] Low 35.0-45.0 [facility] Comment on above: Performed By: #### H EMDF, PT, BMP3M, PHOS3, MG3, CK3 #### [address] #### VD25H #### [facility] [address] [place] [address] pH (Bld) 7.423 Normal 7.350-7.450 [facility] Comment on above: Performed By: #### H EMDF, PT, BMP3M, PHOS3, MG3, CK3 #### [address] [place], [place] #### VD25H #### [facility] [address] [place] [address] Std Base Excess -1.9 mmol/L Normal -3.0-3.0 [facility] Comment on above: Performed By: #### H EMDF, PT, BMP3M, PHOS3, MG3, CK3 #### [address] #### VD25H #### [facility] [address] [place] [address] FIO2 .30 Normal [facility] Comment on above: Performed By: #### H EMDF, PT, BMP3M, PHOS3, MG3, CK3 #### [facility] [address] [facility] [place] #### VD25H #### [facility] [address] [place] [address] Basic Metabolic Panelon 06-30 Anion gap molar conc 12 Normal [facility] Comment on above: Performed By: #### H EMDF, PT, BMP3M, PHOS3, MG3, CK3 #### [address] [place] [place] #### VD25H #### [facility] [address] [place] [address] Calcium mass conc 7.5 mg/dL Low 8.4-10.4 [facility] Comment on above: Performed By: #### H EMDF, PT, BMP3M, PHOS3, MG3, CK3 #### [place] [address] [facility] #### VD25H #### [facility] [address] [place] [address] CO2 molar conc 23 mmol/L Normal 22-30 [facility] Comment on above: Performed By: #### H EMDF, PT, BMP3M, PHOS3, MG3, CK3 #### [facility] [address] [facility] #### VD25H #### [facility] [address] [place] [address] Glucose mass conc 148 mg/dL High 70-100 [facility] Comment on above: Performed By: #### H EMDF, PT, BMP3M, PHOS3, MG3, CK3 #### [place] [address] [facility] #### VD25H #### [facility] [address] [place] [address] Urea nitrogen mass conc 82 mg/dL High 7-20 S [facility] Comment on above: Performed By: #### H EMDF, PT, BMP3M, PHOS3, MG3, CK3 #### [facility] [address] [place] [address] #### VD25H #### [facility] [address] [place] [address] Creatinine mass conc 3.01 mg/dL High 0.52-1.25 [facility] Comment on above: Performed By: #### H EMDF, PT, BMP3M, PHOS3, MG3, CK3 #### [address] #### VD25H #### [facility] [address] [place] [address] GFR/1.73 sq M predicted among blacks MDRD vol rate/area (S/P/Bld) 25.8 mL/min/{1.73_m2} Normal >60 [facility] Comment on above: Performed By: #### H EMDF, PT, BMP3M, PHOS3, MG3, CK3 #### [address] #### VD25H #### [facility] [address] [place] [address] GFR/1.73 sq M predicted among non-blacks MDRD vol rate/area (S/P/Bld) 21.3 mL/min/{1.73_m2} Normal >60 [facility] Comment on above: Result Comment: Sour ce- MDRD equation with creatinine calibration to IDMS(NKDEP) eGFR not recommended for drug dose adjustment Performed By: #### H EMDF, PT, BMP3M, PHOS3, MG3, CK3 #### [facility] [address] [place], [place] #### VD25H #### [facility] [address] [place] [address] Chloride molar conc 106 mmol/L Normal 98-107 [facility] Comment on above: Performed By: #### H EMDF, PT, BMP3M, PHOS3, MG3, CK3 #### [facility] [address] [place] [address] #### VD25H #### [facility] [address] [place] [address] Potassium molar conc 4.2 mmol/L Normal 3.5-5.1 [facility] Comment on above: Performed By: #### H EMDF, PT, BMP3M, PHOS3, MG3, CK3 #### [facility] [address] [place] [address] #### VD25H #### [facility] [address] [place] [address] Sodium molar conc 141 mmol/L Normal 135-145 [facility] Comment on above: Performed By: #### H EMDF, PT, BMP3M, PHOS3, MG3, CK3 #### [facility] [address] [place] #### VD25H #### [facility] [address] [place] [address] CR Chest Portableon 07-24-19 CR Chest Portable Patient Name: KATHYA HOOPER Diagnostic Radiology Exam Date/Time 07/23/2018 07:06:03 EDT Exam CR Chest Portable Ordering Physician MARIA EUGENIA PEREZ Accession Number [id number] CPT4 Codes 69693 () Reason For Exam ETT placement Report [...] Transcribed Date and Time: 07/23/2018 7:58 Normal [facility] Creatinine, Ur Randomon 06-30 Creatinine, Ur Random 56.8 mg/dL Normal No Range [facility] Comment on above: Performed By: #### H EMDF, PT, BMP3M, PHOS3, MG3, CK3 #### [facility] [address] [place] [address] #### VD25H #### [facility] [address] [place] [address] Glucose,Bedsideon 07-23-2018 Glucose mass conc 116 mg/dL High 70-100 [facility] Comment on above: Result Comment: Test performed by glucose meter. Results may be 10%-15% lower than serum/plasma values. (CLIA ID [id number]) Performed By: #### H EMDF, PT, BMP3M, PHOS3, MG3, CK3 #### [facility] [address] [place] [address] #### VD25H #### [facility] [employer] [facility] [address] [place] [address] Glucose mass conc 139 mg/dL High 70-100 [facility] Comment on above: Result Comment: Test performed by glucose meter. Results may be 10%-15% lower than serum/plasma values. (CLIA ID [id number]) Performed By: #### H EMDF, PT, BMP3M, PHOS3, MG3, CK3 #### [facility] [employer] [facility] [address] [place] [address] #### VD25H #### [facility] [employer] [facility] [address] [place] [address] Glucose mass conc 140 mg/dL High 70-100 [facility] Comment on above: Result Comment: Test performed by glucose meter. Results may be 10%-15% lower than serum/plasma values. (CLIA ID [id number]) Performed By: #### H EMDF, PT, BMP3M, PHOS3, MG3, CK3 #### [address] #### VD25H #### [facility] [address] [place] [address] Glucose mass conc 140 mg/dL High 70-100 [facility] Comment on above: Result Comment: Test performed by glucose meter. Results may be 10%-15% lower than serum/plasma values. (CLIA ID [id number]) Performed By: #### H EMDF, PT, BMP3M, PHOS3, MG3, CK3 #### [address] #### VD25H #### [place] [address] [place] [address] Hemogram w/ Autodiffon 07-23 Abs Baso Cnt 0.0 10*3/uL Normal 0.0-0.2 [facility] Comment on above: Performed By: #### H EMDF, PT, BMP3M, PHOS3, MG3, CK3 #### [address] #### VD25H #### [facility] [address] [place] [address] Abs Neutrophile Cnt 16.2 10*3/uL High 1.8-7.0 [facility] Comment on above: Performed By: #### H EMDF, PT, BMP3M, PHOS3, MG3, CK3 #### [address] #### VD25H #### [facility] [address] [place] [address] Basophils/100 WBC (Bld) 0.3 % Normal 0.0-2.0 S [facility] Comment on above: Performed By: #### H EMDF, PT, BMP3M, PHOS3, MG3, CK3 #### [address] #### VD25H #### [facility] [address] [place] [address] Eosinophils #/vol (Bld) 0.2 10*3/uL Normal 0.0-0.5 [facility] Comment on above: Performed By: #### H EMDF, PT, BMP3M, PHOS3, MG3, CK3 #### [address] #### VD25H #### [facility] [address] [place] [address] Eosinophils/100 WBC (Bld) 1.2 % Normal 1.0-6.0 [facility] Comment on above: Performed By: #### H EMDF, PT, BMP3M, PHOS3, MG3, CK3 #### [address] #### VD25H #### [facility] [address] [place] [address] Erythrocyte distribution width Ratio (RBC) 13.9 % Normal 11.5-14.5 [facility] Comment on above: Performed By: #### H EMDF, PT, BMP3M, PHOS3, MG3, CK3 #### [address] #### VD25H #### [facility] [address] [place] [address] Granulocytes/100 WBC (Bld) 86.8 % High 40.0-80.0 [facility] Comment on above: Performed By: #### H EMDF, PT, BMP3M, PHOS3, MG3, CK3 #### [address] #### VD25H #### [facility] [address] [place] [address] Hematocrit Volume Fraction (Bld) 26.7 % Low 40.0-52.0 [facility] Comment on above: Performed By: #### H EMDF, PT, BMP3M, PHOS3, MG3, CK3 #### [address] #### VD25H #### [facility] [address] [place] [address] Hemoglobin mass conc (Bld) 8.9 g/dL Low 13.0-18.0 [facility] Comment on above: Performed By: #### H EMDF, PT, BMP3M, PHOS3, MG3, CK3 #### [address] #### VD25H #### [facility] [address] [place] [address] Lymphocytes #/vol (Bld) 1.2 10*3/uL Normal 1.0-4.3 [facility] Comment on above: Performed By: #### H EMDF, PT, BMP3M, PHOS3, MG3, CK3 #### [address] #### VD25H #### [facility] [address] [place] [address] Lymphocytes/100 WBC (Bld) 6.6 % Low 20.0-40.0 [facility] Comment on above: Performed By: #### H EMDF, PT, BMP3M, PHOS3, MG3, CK3 #### [address] #### VD25H #### [place] [address] [place] [address] MCH Entitic mass (RBC) 29.5 pg Normal 26.0-34.0 [facility] Comment on above: Performed By: #### H EMDF, PT, BMP3M, PHOS3, MG3, CK3 #### [address] #### VD25H #### [facility] [address] [place] [address] MCHC mass conc (RBC) 33.5 % Normal 32.0-36.0 [facility] Comment on above: Performed By: #### H EMDF, PT, BMP3M, PHOS3, MG3, CK3 #### [address] [place], [place] #### VD25H #### [facility] [address] [place] [address] MCV Entitic volume (RBC) 87.9 fL Normal 80.0-98.0 [facility] Comment on above: Performed By: #### H EMDF, PT, BMP3M, PHOS3, MG3, CK3 #### [address] #### VD25H #### [facility] [address] [place] [address] Monocytes #/vol (Bld) 1.0 10*3/uL High 0.0-0.8 [facility] Comment on above: Performed By: #### H EMDF, PT, BMP3M, PHOS3, MG3, CK3 #### [address] #### VD25H #### [place] [address] [place] [address] Monocytes/100 WBC (Bld) 5.1 % Normal 2.0-10.0 S [facility] Comment on above: Performed By: #### H EMDF, PT, BMP3M, PHOS3, MG3, CK3 #### [address] #### VD25H #### [facility] [address] [place] [address] Platelet mean volume Entitic volume (Bld) 8.2 fL Normal 7.4-10.4 [facility] Comment on above: Performed By: #### H EMDF, PT, BMP3M, PHOS3, MG3, CK3 #### [address] #### VD25H #### [facility] [address] [place] [address] Platelets #/vol (Bld) 294 10*3/uL Normal 140-440 [facility] Comment on above: Performed By: #### H EMDF, PT, BMP3M, PHOS3, MG3, CK3 #### [address] [place], [place] #### VD25H #### [facility] [address] [place] [address] RBC #/vol (Bld) 3.03 10*6/uL Low 4.40-5.90 [facility] Comment on above: Performed By: #### H EMDF, PT, BMP3M, PHOS3, MG3, CK3 #### [address] [place], [place] #### VD25H #### [facility] [address] [place] [address] WBC #/vol (Bld) 18.7 10*3/uL High 3.6-10.7 [facility] Comment on above: Performed By: #### H EMDF, PT, BMP3M, PHOS3, MG3, CK3 #### [address] [place] [place], [place] #### VD25H #### [facility] [address] [place] [address] LDHon 07-23-2018 LDH 342 U/L High 65-175 [facility] Comment on above: Performed By: #### H EMDF, PT, BMP3M, PHOS3, MG3, CK3 #### [address] #### VD25H #### [facility] [address] [place] [address] Magnesiumon 07-23-2018 Magnesium mass conc 2.5 mg/dL High 1.6-2.3 [facility] Comment on above: Performed By: #### H EMDF, PT, BMP3M, PHOS3, MG3, CK3 #### [address] #### VD25H #### [facility] [address] [place] [address] Phosphoruson 07-23-2018 Phosphate mass conc 4.5 mg/dL Normal 2.5-4.5 [facility] Comment on above: Performed By: #### H EMDF, PT, BMP3M, PHOS3, MG3, CK3 #### [facility] [address] [place], [place] #### VD25H #### [facility] [address] [place] [address] Protein, Total Body Fluidon 07-23-2018 Protein,Total-Body Fld 2.7 g/dL Normal No Range [facility] Comment on above: Performed By: #### H EMDF, PT, BMP3M, PHOS3, MG3, CK3 #### [address] [place] [address] [place], [place] #### VD25H #### [facility] [address] [place] [address] Triglycerideon 07-23-2018 Triglyceride mass conc 63 mg/dL Normal <150 [facility] Comment on above: Performed By: #### H EMDF, PT, BMP3M, PHOS3, MG3, CK3 #### [place] [address] [facility] [place] #### VD25H #### [facility] [address] [place] [address] Urea Nitrogen,Ur Randomon Urea nitrogen mass conc 677 mg/dL Normal No Range [facility] Comment on above: Performed By: #### H EMDF, PT, BMP3M, PHOS3, MG3, CK3 #### [facility] [address] [facility] [place] #### VD25H #### [facility] [address] [place] [address] Urinalysis,Macroon 9 Appearance Nom (U) cloudy Normal Clear [facility] Comment on above: Performed By: #### H EMDF, PT, BMP3M, PHOS3, MG3, CK3 #### [facility] [address] [facility] #### VD25H #### [facility] [address] [place] [address] Bilirubin,Ur Negative Normal Negative [facility] Comment on above: Performed By: #### H EMDF, PT, BMP3M, PHOS3, MG3, CK3 #### [place] [address] [place], [place] #### VD25H #### [facility] [address] [place] [address] Color Nom (U) dk.yel Normal Lt. Yellow [facility] Comment on above: Performed By: #### H EMDF, PT, BMP3M, PHOS3, MG3, CK3 #### [address] #### VD25H #### [facility] [address] [place] [address] Glucose Ql (U) NORM Normal Negative [facility] Comment on above: Performed By: #### H EMDF, PT, BMP3M, PHOS3, MG3, CK3 #### [place] [address] [place] #### VD25H #### [facility] [address] [place] [address] Ketone,Urine Negative Normal Negative [facility] Comment on above: Performed By: #### H EMDF, PT, BMP3M, PHOS3, MG3, CK3 #### [address] #### VD25H #### [facility] [address] [place] [address] Nitrite Ql (U) Negative Normal Negative [facility] Comment on above: Performed By: #### H EMDF, PT, BMP3M, PHOS3, MG3, CK3 #### [address] #### VD25H #### [facility] [address] [place] [address] Occult Blood,Ur 250 {RBC}/uL Normal Negative [facility] Comment on above: Performed By: #### H EMDF, PT, BMP3M, PHOS3, MG3, CK3 #### [address] [place], [place] #### VD25H #### [facility] [address] [place] [address] pH (U) 5.0 Normal 5.0-8.0 [facility] Comment on above: Performed By: #### H EMDF, PT, BMP3M, PHOS3, MG3, CK3 #### [address] [place], [place] #### VD25H #### [facility] [address] [place] [address] Protein mass conc (U) 75 mg/dL Normal Negative [facility] Comment on above: Performed By: #### H EMDF, PT, BMP3M, PHOS3, MG3, CK3 #### [address] #### VD25H #### [place] [address] [place] [address] Specific [place],Urine 1.015 Normal 1.005-1.030 S [facility] Comment on above: Performed By: #### H EMDF, PT, BMP3M, PHOS3, MG3, CK3 #### [address] [place], [place] #### VD25H #### [place] [address] [place] [address] Urobilinogen Qn (U) NORM Normal 0-1 [facility] Comment on above: Performed By: #### H EMDF, PT, BMP3M, PHOS3, MG3, CK3 #### [address] [place] #### VD25H #### [place] [address] [place] [address] WBC #/vol (Bld) 2 + Normal Negative [facility] Comment on above: Performed By: #### H EMDF, PT, BMP3M, PHOS3, MG3, CK3 #### [address] [place] #### VD25H #### [facility] [address] [place] [address] Urinalysis,Microscopicon Bacteria LM.HPF #/area (Urine sed) Moderate (6-50) Normal Negative [facility] Comment on above: Performed By: #### H EMDF, PT, BMP3M, PHOS3, MG3, CK3 #### [address] [place] #### VD25H #### [facility] [address] [place] [address] Epithelial cells LM.HPF #/area (Urine sed) 0 - 2 Normal 3-5 [facility] Comment on above: Performed By: #### H EMDF, PT, BMP3M, PHOS3, MG3, CK3 #### [address] #### VD25H #### [place] [address] [place] [address] RBC LM.HPF #/area (Urine sed) /[HPF] Normal 0-2 [facility] Comment on above: Performed By: #### H EMDF, PT, BMP3M, PHOS3, MG3, CK3 #### [address] #### VD25H #### [facility] [address] [place] [address] Volume,Urine 8-12 ml Normal [facility] Comment on above: Performed By: #### H EMDF, PT, BMP3M, PHOS3, MG3, CK3 #### [address] #### VD25H #### [facility] [address] [place] [address] WBC LM.HPF #/area (Urine sed) 26 - 50 Normal 0-5 [facility] Comment on above: Performed By: #### H EMDF, PT, BMP3M, PHOS3, MG3, CK3 #### [address] [place] [address] #### VD25H #### [facility] [employer] [facility] [address] [place] [address] VL Venous Duplex US Lower Ex t Bilateralon 07-23-2018 VL Venous Duplex US Lower Ext Bilateral Patient Name: KATHYA HOOPER Ultrasound Exam Date/Time 07/23/2018 11:16:11 EDT Exam VL Venous Duplex US Lower Ext Bilateral Ordering Physician ETIENNE MARTÍNEZ JULIE Accession Number [id number] CPT4 Codes 87242 () Reason For Exam edema Report [facility] --- Lower Extremity Venous Duplex Report Patient Name: Kathya Hooper : 1955 Study Date: 07/23/2018 W (63yrs) Age: 63 Account: [id number] Gender: M Loc: T209 BP: Ordering: Yesenia Martínez Technologist: Ordering Physician: Yesenia Martínez Member Of Parliament: León Chaidez RVT [facility] Interpreting Physician: Vamsi York MD --- Location: [facility] --- INDICATIONS: Edema. bilateral calf [...] performed. The images were obtained using a [employer] E9 vascular ultrasound machine. --- VENOUS FLOW [...] --+ Electronically signed by: Vamsi York MD [id number] Final Dictated: 07/23/2018 3:00 pm Dictating Physician: VAMSI YORK Signed Date and Time: 07/23/2018 3:00 pm Signed by: VAMSI YORK Normal [facility] Vancomycin Troughon 07-24-19 19 Vancomycin Trough 10.8 ug/mL Low 15.0-20.0 [facility] Comment on above: Result Comment: . Performed By: #### H EMDF, PT, BMP3M, PHOS3, MG3, CK3 #### [facility] [address] [place] #### VD25H #### [facility] [address] [place] [address] Basic Metabolic Panelon 03-2 Calcium mass conc 7.9 mg/dL Low 8.4-10.4 [facility] Comment on above: Performed By: #### H EMDF, PT, BMP3M, PHOS3, MG3, CK3 #### [address] [place] #### VD25H #### [facility] [address] [place] [address] Anion gap molar conc 11 Normal [facility] Comment on above: Performed By: #### H EMDF, PT, BMP3M, PHOS3, MG3, CK3 #### [place] [address] [facility] #### VD25H #### [facility] [address] [place] [address] CO2 molar conc 28 mmol/L Normal 22-30 [facility] Comment on above: Performed By: #### H EMDF, PT, BMP3M, PHOS3, MG3, CK3 #### [address] [place] #### VD25H #### [facility] [address] [place] [address] Glucose mass conc 134 mg/dL High 70-100 [facility] Comment on above: Performed By: #### H EMDF, PT, BMP3M, PHOS3, MG3, CK3 #### [facility] [address] [facility] #### VD25H #### [facility] [address] [place] [address] Urea nitrogen mass conc 51 mg/dL High 7-20 S [facility] Comment on above: Performed By: #### H EMDF, PT, BMP3M, PHOS3, MG3, CK3 #### [facility] [address] [place] [address] #### VD25H #### [facility] [address] [place] [address] Creatinine mass conc 1.57 mg/dL High 0.52-1.25 [facility] Comment on above: Performed By: #### H EMDF, PT, BMP3M, PHOS3, MG3, CK3 #### [facility] [address] [place] [address] #### VD25H #### [facility] [address] [place] [address] GFR/1.73 sq M predicted among blacks MDRD vol rate/area (S/P/Bld) 54.6 mL/min/{1.73_m2} Normal >60 [facility] Comment on above: Performed By: #### H EMDF, PT, BMP3M, PHOS3, MG3, CK3 #### [address] [address] #### VD25H #### [facility] [address] [place] [address] GFR/1.73 sq M predicted among non-blacks MDRD vol rate/area (S/P/Bld) 45.1 mL/min/{1.73_m2} Normal >60 [facility] Comment on above: Result Comment: Sour ce- MDRD equation with creatinine calibration to IDMS(NKDEP) eGFR not recommended for drug dose adjustment Performed By: #### H EMDF, PT, BMP3M, PHOS3, MG3, CK3 #### [address] [address] #### VD25H #### [facility] [address] [place] [address] Chloride molar conc 107 mmol/L Normal 98-107 [facility] Comment on above: Performed By: #### H EMDF, PT, BMP3M, PHOS3, MG3, CK3 #### [address] [address] #### VD25H #### [facility] [address] [place] [address] Potassium molar conc 3.8 mmol/L Normal 3.5-5.1 [facility] Comment on above: Performed By: #### H EMDF, PT, BMP3M, PHOS3, MG3, CK3 #### [facility] [address] [place] [address] #### VD25H #### [facility] [address] [place] [address] Sodium molar conc 146 mmol/L High 135-145 [facility] Comment on above: Performed By: #### H EMDF, PT, BMP3M, PHOS3, MG3, CK3 #### [facility] [address] [place] [address] #### VD25H #### [facility] [address] [place] [address] CR Abdomen APon 07-22-2018 CR Abdomen AP Patient Name: KATHYA HOOPER Diagnostic Radiology Exam Date/Time 07/22/2018 08:02:02 EDT Exam CR Abdomen AP Ordering Physician MARIA EUGENIA PEREZ Accession Number [id number] CPT4 Codes 31235 () Reason For Exam ileus Report Supine [...] Transcribed Date and Time: 07/22/2018 9:28 Normal [facility] CR Chest Portableon 07-23-19 CR Chest Portable Patient Name: KATHYA HOOPER Diagnostic Radiology Exam Date/Time 07/22/2018 16:32:15 EDT Exam CR Chest Portable Ordering Physician MD NATE, [employer] Accession Number [id number] CPT4 Codes 91777 () Reason For Exam Thoracentesis Report Clinical [...] Transcribed Date and Time: 07/22/2018 6:46 Normal [facility] CR Chest Portable Patient Name: KATHYA HOOPER Diagnostic Radiology Exam Date/Time 07/22/2018 06:49:22 EDT Exam CR Chest Portable Ordering Physician MARIA EUGENIA PEREZ Accession Number [id number] CPT4 Codes 93717 () Reason For Exam ETT placement Report [...] Transcribed Date and Time: 07/22/2018 9:31 Normal [facility] CULTURE AND STAIN - FLUIDon 07-22-2018 CULTURE AND STAIN - FLUID CULTURE & STAIN - FLUID --> Status: F No growth at 5 days. STAIN GRAM --> Status: F Moderate polymorphonuclear cells/lpf. Moderate mononuclear cells/lpf No organisms seen. Cytocentrifugation performed. Moderate mononuclear cells/lpf No organisms seen. Cytocentrifugation performed. Normal [facility] Comment on above: Order Comment: Speci men Source Comment:Body Fluid Performed By: #### H EMDF, PT, BMP3M, PHOS3, MG3, CK3 #### [facility] [address] [place], [place] #### VD25H #### [facility] [address] [place] [address] Cell Count,Body Fluidon 06-30 Nucleated Cells 259 {cells}/uL Normal [facility] Comment on above: Performed By: #### H EMDF, PT, BMP3M, PHOS3, MG3, CK3 #### [facility] [address] [place] [address] #### VD25H #### [facility] [address] [place] [address] RBC Count Body Fld 123 {RBC}/uL Normal [facility] Comment on above: Performed By: #### H EMDF, PT, BMP3M, PHOS3, MG3, CK3 #### [facility] [address] [place], [place] #### VD25H #### [facility] [address] [place] [address] Fluid Type thoracentesis Normal [facility] Comment on above: Performed By: #### H EMDF, PT, BMP3M, PHOS3, MG3, CK3 #### [address] [place], [place] #### VD25H #### [facility] [address] [place] [address] Glucose, Body Fluidon 2018 Fluid Type Thoracentesis Normal [facility] Comment on above: Performed By: #### H EMDF, PT, BMP3M, PHOS3, MG3, CK3 #### [address] [address] [place], [place] #### VD25H #### [facility] [address] [place] [address] Glucose, Body Fluid 136 mg/dL Normal No Range [facility] Comment on above: Performed By: #### H EMDF, PT, BMP3M, PHOS3, MG3, CK3 #### [address] [place] #### VD25H #### [facility] [address] [place] [address] Glucose,Bedsideon 07-22-2018 Glucose mass conc 142 mg/dL High 70-100 [facility] Comment on above: Result Comment: Test performed by glucose meter. Results may be 10%-15% lower than serum/plasma values. (CLIA ID [id number]) Performed By: #### H EMDF, PT, BMP3M, PHOS3, MG3, CK3 #### [address] [place] #### VD25H #### [facility] [address] [place] [address] Glucose mass conc 127 mg/dL High 70-100 [facility] Comment on above: Result Comment: Test performed by glucose meter. Results may be 10%-15% lower than serum/plasma values. (CLIA ID [id number]) Performed By: #### H EMDF, PT, BMP3M, PHOS3, MG3, CK3 #### [employer] [address] [place], [place] #### VD25H #### [facility] [address] [place] [address] Glucose mass conc 139 mg/dL High 70-100 [facility] Comment on above: Result Comment: Test performed by glucose meter. Results may be 10%-15% lower than serum/plasma values. (CLIA ID [id number]) Performed By: #### H EMDF, PT, BMP3M, PHOS3, MG3, CK3 #### [employer] [address] [place] [address] #### VD25H #### [employer] [address] [place] [address] Glucose mass conc 124 mg/dL High 70-100 [facility] Comment on above: Result Comment: Test performed by glucose meter. Results may be 10%-15% lower than serum/plasma values. (CLIA ID [id number]) Performed By: #### H EMDF, PT, BMP3M, PHOS3, MG3, CK3 #### [facility] [address] [place] [address] #### VD25H #### [facility] [address] [place] [address] Glucose mass conc 128 mg/dL High 70-100 [facility] Comment on above: Result Comment: Test performed by glucose meter. Results may be 10%-15% lower than serum/plasma values. (CLIA ID [id number]) Performed By: #### H EMDF, PT, BMP3M, PHOS3, MG3, CK3 #### [employer] [address] #### VD25H #### [facility] [address] [facility] [place] [address] Glucose mass conc 113 mg/dL High 70-100 [facility] Comment on above: Result Comment: Test performed by glucose meter. Results may be 10%-15% lower than serum/plasma values. (CLIA ID [id number]) Performed By: #### H EMDF, PT, BMP3M, PHOS3, MG3, CK3 #### [address] #### VD25H #### [facility] [address] [facility] [address] Hemogram w/ Autodiffon 07-22 Abs Baso Cnt 0.1 10*3/uL Normal 0.0-0.2 [facility] Comment on above: Performed By: #### H EMDF, PT, BMP3M, PHOS3, MG3, CK3 #### [address] #### VD25H #### [facility] [address] [place] [address] Abs Neutrophile Cnt 15.2 10*3/uL High 1.8-7.0 [facility] Comment on above: Performed By: #### H EMDF, PT, BMP3M, PHOS3, MG3, CK3 #### [address] #### VD25H #### [facility] [address] [place] [address] Basophils/100 WBC (Bld) 0.6 % Normal 0.0-2.0 S [facility] Comment on above: Performed By: #### H EMDF, PT, BMP3M, PHOS3, MG3, CK3 #### [address] #### VD25H #### [facility] [address] [place] [address] Eosinophils #/vol (Bld) 0.2 10*3/uL Normal 0.0-0.5 [facility] Comment on above: Performed By: #### H EMDF, PT, BMP3M, PHOS3, MG3, CK3 #### [facility] [address] [place] #### VD25H #### [facility] [address] [place] [address] Eosinophils/100 WBC (Bld) 0.9 % Low 1.0-6.0 [facility] Comment on above: Performed By: #### H EMDF, PT, BMP3M, PHOS3, MG3, CK3 #### [facility] [address] [place], [place] #### VD25H #### [facility] [address] [place] [address] Erythrocyte distribution width Ratio (RBC) 13.9 % Normal 11.5-14.5 [facility] Comment on above: Performed By: #### H EMDF, PT, BMP3M, PHOS3, MG3, CK3 #### [address] #### VD25H #### [facility] [address] [place] [address] Granulocytes/100 WBC (Bld) 88.8 % High 40.0-80.0 [facility] Comment on above: Performed By: #### H EMDF, PT, BMP3M, PHOS3, MG3, CK3 #### [address] #### VD25H #### [facility] [address] [place] [address] Hematocrit Volume Fraction (Bld) 31.6 % Low 40.0-52.0 [facility] Comment on above: Performed By: #### H EMDF, PT, BMP3M, PHOS3, MG3, CK3 #### [facility] [address] [place], [place] #### VD25H #### [facility] [address] [place] [address] Hemoglobin mass conc (Bld) 10.9 g/dL Low 13.0-18.0 [facility] Comment on above: Performed By: #### H EMDF, PT, BMP3M, PHOS3, MG3, CK3 #### [address] [place], [place] #### VD25H #### [facility] [address] [place] [address] Lymphocytes #/vol (Bld) 1.1 10*3/uL Normal 1.0-4.3 [facility] Comment on above: Performed By: #### H EMDF, PT, BMP3M, PHOS3, MG3, CK3 #### [address] #### VD25H #### [facility] [address] [place] [address] Lymphocytes/100 WBC (Bld) 6.2 % Low 20.0-40.0 [facility] Comment on above: Performed By: #### H EMDF, PT, BMP3M, PHOS3, MG3, CK3 #### [address] #### VD25H #### [facility] [address] [facility] [address] MCH Entitic mass (RBC) 31.1 pg Normal 26.0-34.0 [facility] Comment on above: Performed By: #### H EMDF, PT, BMP3M, PHOS3, MG3, CK3 #### [address] #### VD25H #### [facility] [address] [place] [address] MCHC mass conc (RBC) 34.6 % Normal 32.0-36.0 [facility] Comment on above: Performed By: #### H EMDF, PT, BMP3M, PHOS3, MG3, CK3 #### [address] #### VD25H #### [facility] [address] [facility] [address] MCV Entitic volume (RBC) 89.9 fL Normal 80.0-98.0 [facility] Comment on above: Performed By: #### H EMDF, PT, BMP3M, PHOS3, MG3, CK3 #### [address] [place], [place] #### VD25H #### [facility] [address] [place] [address] Monocytes #/vol (Bld) 0.6 10*3/uL Normal 0.0-0.8 [facility] Comment on above: Performed By: #### H EMDF, PT, BMP3M, PHOS3, MG3, CK3 #### [address] #### VD25H #### [facility] [address] [place] [address] Monocytes/100 WBC (Bld) 3.5 % Normal 2.0-10.0 [facility] Comment on above: Performed By: #### H EMDF, PT, BMP3M, PHOS3, MG3, CK3 #### [address] #### VD25H #### [facility] [address] [place] [address] Platelet mean volume Entitic volume (Bld) 7.9 fL Normal 7.4-10.4 [facility] Comment on above: Performed By: #### H EMDF, PT, BMP3M, PHOS3, MG3, CK3 #### [address] [place] #### VD25H #### [facility] [address] [place] [address] Platelets #/vol (Bld) 299 10*3/uL Normal 140-440 [facility] Comment on above: Performed By: #### H EMDF, PT, BMP3M, PHOS3, MG3, CK3 #### [address] #### VD25H #### [facility] [address] [place] [address] RBC #/vol (Bld) 3.52 10*6/uL Low 4.40-5.90 [facility] Comment on above: Performed By: #### H EMDF, PT, BMP3M, PHOS3, MG3, CK3 #### [address] #### VD25H #### [facility] [address] [place] [address] WBC #/vol (Bld) 17.1 10*3/uL High 3.6-10.7 [facility] Comment on above: Performed By: #### H EMDF, PT, BMP3M, PHOS3, MG3, CK3 #### [address] #### VD25H #### [place] [address] [place] [address] LDH, Body Fluidon 07-22-2018 LDH, Body Fluid 232 U/L Normal No Range [facility] Comment on above: Performed By: #### H EMDF, PT, BMP3M, PHOS3, MG3, CK3 #### [address] #### VD25H #### [place] [address] [place] [address] Magnesiumon 07-22-2018 Magnesium mass conc 2.6 mg/dL High 1.6-2.3 [facility] Comment on above: Performed By: #### H EMDF, PT, BMP3M, PHOS3, MG3, CK3 #### [address] #### VD25H #### [facility] [address] [place] [address] Medical Cytologyon 9 Medical Cytology [facility] [id number] [facility]IC[facility] [address] [place] [address] FINAL MEDICAL CYTOLOGY REPORT NAME: KATHYA HOOPER : 1955 63 Y M BILLING NO.: [id number] LOCATION: 1T2I T2 INPAT T209 PROCEDURE 07/22/2018 [...] characteristics determined by the clinical laboratories of [facility] [employer] [facility]. They have not been cleared by [...] negativity on decalcified specimens. Case reviewed at [facility] [address] [place] [address]. DEPARTMENT OF PATHOLOGY AND LABORATORY MEDICINE [place], [place] Normal [facility] Phosphoruson 07-22-2018 Phosphate mass conc 4.6 mg/dL High 2.5-4.5 [facility] Comment on above: Performed By: #### H EMDF, PT, BMP3M, PHOS3, MG3, CK3 #### [facility] [address] [place], [place] #### VD25H #### [facility] [address] [place] [address] Procalcitoninon 07-22-2018 Protein mass conc 0.27 ng/mL Abnormal <0.10 [facility] Comment on above: Result Comment: (Cor rect ref.range is <0.09 ng/mL) Test performed: [place], [place]. Performed By: #### H EMDF, PT, BMP3M, PHOS3, MG3, CK3 #### [address] #### VD25H #### [facility] [address] [place] [address] Interpretation See Below Normal [facility] Comment on above: Result Comment: PCT <0.50 = Low risk of severe sepsis and/or septic shock. PCT >2.00 = High risk of severe sepsis and/or septic shock. Performed By: #### H EMDF, PT, BMP3M, PHOS3, MG3, CK3 #### [address] #### VD25H #### [facility] [address] [place] [address] STAIN ACID-FASTon 07-22-2018 STAIN ACID-FAST STAIN ACID-FAST --> Status: F No acid-fast bacilli seen in smear. - Method: AFB by Kinyoun Stain - Method: AFB by Kinyoun Stain Normal [facility] Comment on above: Performed By: #### H EMDF, PT, BMP3M, PHOS3, MG3, CK3 #### [facility] [address] [place] [address] #### VD25H #### [facility] [address] [place] [address] Triglycerideon 07-22-2018 Triglyceride mass conc 96 mg/dL Normal <150 [facility] Comment on above: Performed By: #### H EMDF, PT, BMP3M, PHOS3, MG3, CK3 #### [facility] [address] [place] [address] #### VD25H #### [facility] [address] [place] [address] US Thora-Aspir Pleura w/ Evelin geon 07-22-2018 US Thora-Aspir Pleura w/ Image Patient Name: KATHYA HOOPER Ultrasound Exam Date/Time 07/22/2018 14:23:28 EDT Exam US Thora-Aspir Pleura w/ Image Ordering Physician MARIA EUGENIA PEREZ Accession Number [id number] CPT4 Codes 70245 () Reason For Exam L thoracentesis Report Reasons for examination: Left pleural effusion. Respiratory insufficiency. Ultrasound was performed of the left hemithorax, localizing the pleural fluid. After obtaining informed consent, sterile preparation, draping, and local anesthetic administration, thoracentesis was performed under direct ultrasonographic guidance with a 5 German Yueh needle/catheter. A total of 300 mL [...] Transcribed Date and Time: 07/22/2018 2:55 Normal [facility] pH,Misc Body Fluidon 019 pH,Misc 7.996 Normal None Available [facility] Comment on above: Performed By: #### H EMDF, PT, BMP3M, PHOS3, MG3, CK3 #### [facility] [address] [place] [address] #### VD25H #### [facility] [address] [place] [address] Arterial Blood Gaseson 07-21 CO2 molar conc 29.8 mmol/L High 23.0-27.[address] [facility] Comment on above: Performed By: #### T SGL #### [facility] [address] [place] [address] HCO3 molar conc (Bld) 28.7 mmol/L High 21.0-25.0 [facility] Comment on above: Performed By: #### T SGL #### [address] [place] [address] Hemoglobin mass conc (Bld) 11.7 g/dL Normal ScreenOnly [facility] Comment on above: Performed By: #### T SGL #### [facility] [address] [place] [address] Oxygen ppres (Bld) 144.9 mm[Hg] High 80.0-100.0 [facility] Comment on above: Performed By: #### T SGL #### [facility] [address] [place] [address] Oxygen saturation in Blood 98.4 % Normal 95.0-100.0 [facility] Comment on above: Performed By: #### T SGL #### [facility] [address] [place] [address] pCO2 36.8 mm[Hg] Normal 35.0-45.0 [facility] Comment on above: Performed By: #### T SGL #### [facility] [address] [place] [address] pH (Bld) 7.510 High 7.350-7.450 [facility] Comment on above: Performed By: #### T SGL #### [address] [place] [address] Std Base Excess 5.5 mmol/L High -3.0-3.[address] [facility] Comment on above: Performed By: #### T SGL #### [facility] [address] [place] [address] FIO2 .50 Normal [facility] Comment on above: Performed By: #### T SGL #### [facility] [address] [place] [address] CR Abdomen APon 07-21-2018 CR Abdomen AP Patient Name: KATHYA HOOPER Diagnostic Radiology Exam Date/Time 07/21/2018 06:41:07 EDT Exam CR Abdomen AP Ordering Physician JOYA ROJAS Accession Number [id number] CPT4 Codes 70578 () Reason For Exam ileus Report Reason [...] Transcribed Date and Time: 07/21/2018 7:23 Normal [facility] CR Chest Portableon 07-22-19 19 CR Chest Portable Patient Name: KATHYA HOOPER Diagnostic Radiology Exam Date/Time 07/21/2018 06:40:50 EDT Exam CR Chest Portable Ordering Physician MARIA EUGENIA PEREZ Accession Number [id number] CPT4 Codes 33896 () Reason For Exam ETT placement Report [...] Transcribed Date and Time: 07/21/2018 5:38 Normal [facility] CR Chest Portable Patient Name: KATHYA HOOPER Diagnostic Radiology Exam Date/Time 07/21/2018 01:11:50 EDT Exam CR Chest Portable Ordering Physician MD GRIFFIN NICHOLAS Accession Number [id number] CPT4 Codes 75294 () Reason For Exam s/p bronch Report [...] Transcribed Date and Time: 07/21/2018 1:26 Normal [facility] Comp Metabolic Panelon 07-21 Calcium mass conc 7.9 mg/dL Low 8.4-10.4 [facility] Comment on above: Performed By: #### T SGL #### [facility] [address] [facility] [place] [address] ALP enzyme act/vol 85 U/L Normal 38-126 [facility] Comment on above: Performed By: #### T SGL #### [facility] [address] [facility] [place] [address] ALT enzyme act/vol 105 U/L High 13-69 [facility] Comment on above: Performed By: #### T SGL #### [facility] [address] [place] [facility] [place] [place] [address] Anion gap molar conc 8 Normal [facility] Comment on above: Performed By: #### T SGL #### [facility] [address] [facility] [place] [address] AST enzyme act/vol 78 U/L High 15-46 [facility] Comment on above: Performed By: #### T SGL #### [facility] [address] [facility] [place] [address] Bilirubin mass conc 1.1 mg/dL Normal 0.2-1.3 [facility] Comment on above: Performed By: #### T SGL #### [facility] [address] [facility] [place] [address] CO2 molar conc 33 mmol/L High 22-30 [facility] Comment on above: Performed By: #### T SGL #### [facility] [address] [facility] [place] [address] Creatinine mass conc 0.90 mg/dL Normal 0.52-1.25 [facility] Comment on above: Performed By: #### T SGL #### [facility] [address] [facility] [place] [address] GFR/1.73 sq M predicted among blacks MDRD vol rate/area (S/P/Bld) mL/min/{1.73_m2} Normal >60 [facility] Comment on above: Performed By: #### T SGL #### [facility] [address] [place] [address] GFR/1.73 sq M predicted among non-blacks MDRD vol rate/area (S/P/Bld) mL/min/{1.73_m2} Normal >60 [facility] Comment on above: Result Comment: Sour ce- MDRD equation with creatinine calibration to IDMS(NKDEP) eGFR not recommended for drug dose adjustment Performed By: #### T SGL #### [address] [place] [address] Glucose mass conc 113 mg/dL High 70-100 [facility] Comment on above: Performed By: #### T SGL #### [address] [place] [address] Protein mass conc 5.6 g/dL Low 6.3-8.2 [facility] Comment on above: Performed By: #### T SGL #### [address] [place] [address] Urea nitrogen mass conc 28 mg/dL High 7-20 [facility] Comment on above: Performed By: #### T SGL #### [address] [place] [address] Chloride molar conc 104 mmol/L Normal 98-107 [facility] Comment on above: Performed By: #### T SGL #### [address] [place] [address] Potassium molar conc 3.6 mmol/L Normal 3.5-5.1 [facility] Comment on above: Performed By: #### T SGL #### [address] [place] [address] Sodium molar conc 145 mmol/L Normal 135-145 [facility] Comment on above: Performed By: #### T SGL #### [address] [facility] [place] [address] Albumin mass conc 2.8 g/dL Low 3.5-5.0 [facility] Comment on above: Performed By: #### T SGL #### [address] [place] [address] Glucose,Bedsideon 07-21-2018 Glucose mass conc 124 mg/dL High 70-100 [facility] Comment on above: Result Comment: Test performed by glucose meter. Results may be 10%-15% lower than serum/plasma values. (CLIA ID [id number]) Performed By: #### H EMDF, PT, BMP3M, PHOS3, MG3, CK3 #### [employer] [address] [place] [address] #### VD25H #### [employer] [facility] [address] [place] [address] Glucose mass conc 151 mg/dL High 70-100 [facility] Comment on above: Result Comment: Test performed by glucose meter. Results may be 10%-15% lower than serum/plasma values. (CLIA ID [id number]) Performed By: #### H EMDF, PT, BMP3M, PHOS3, MG3, CK3 #### [employer] [address] [place] [address] #### VD25H #### [employer] [address] [place] [address] Glucose mass conc 127 mg/dL High 70-100 [facility] Comment on above: Result Comment: Test performed by glucose meter. Results may be 10%-15% lower than serum/plasma values. (CLIA ID [id number]) Performed By: #### T SGL #### [employer] [facility] [place] [address] Glucose mass conc 113 mg/dL High 70-100 [facility] Comment on above: Result Comment: Test performed by glucose meter. Results may be 10%-15% lower than serum/plasma values. (CLIA ID [id number]) Performed By: #### A DDON #### [employer] [facility] [address] [place] [address] Hemogram w/ Autodiffon 07-21 Abs Baso Cnt 0.1 10*3/uL Normal 0.0-0.2 [facility] Comment on above: Performed By: #### T SGL #### [facility] [address] [place] [address] Abs Neutrophile Cnt 11.0 10*3/uL High 1.8-7.0 [facility] Comment on above: Performed By: #### T SGL #### [address] [place] [address] Basophils/100 WBC (Bld) 0.5 % Normal 0.0-2.0 [facility] Comment on above: Performed By: #### T SGL #### [address] [place] [address] Eosinophils #/vol (Bld) 0.3 10*3/uL Normal 0.0-0.5 [facility] Comment on above: Performed By: #### T SGL #### [address] [place] [address] Eosinophils/100 WBC (Bld) 1.9 % Normal 1.0-6.0 [facility] Comment on above: Performed By: #### T SGL #### [address] [place] [address] Erythrocyte distribution width Ratio (RBC) 13.7 % Normal 11.5-14.5 [facility] Comment on above: Performed By: #### T SGL #### [address] [place] [address] Granulocytes/100 WBC (Bld) 81.0 % High 40.0-80.0 [facility] Comment on above: Performed By: #### T SGL #### [address] [place] [address] Hematocrit Volume Fraction (Bld) 32.1 % Low 40.0-52.0 [facility] Comment on above: Performed By: #### T SGL #### [address] [place] [address] Hemoglobin mass conc (Bld) 10.7 g/dL Low 13.0-18.0 [facility] Comment on above: Performed By: #### T SGL #### [address] [place] [address] Lymphocytes #/vol (Bld) 1.3 10*3/uL Normal 1.0-4.3 [facility] Comment on above: Performed By: #### T SGL #### [address] [place] [address] Lymphocytes/100 WBC (Bld) 9.8 % Low 20.0-40.0 [facility] Comment on above: Performed By: #### T SGL #### [facility] [address] [place] [address] MCH Entitic mass (RBC) 29.0 pg Normal 26.0-34.0 [facility] Comment on above: Performed By: #### T SGL #### [address] [place] [address] MCHC mass conc (RBC) 33.4 % Normal 32.0-36.0 [facility] Comment on above: Performed By: #### T SGL #### [address] [place] [address] MCV Entitic volume (RBC) 86.9 fL Normal 80.0-98.0 [facility] Comment on above: Performed By: #### T SGL #### [address] [place] [address] Monocytes #/vol (Bld) 0.9 10*3/uL High 0.0-0.8 [facility] Comment on above: Performed By: #### T SGL #### [address] [place] [address] Monocytes/100 WBC (Bld) 6.8 % Normal 2.0-10.0 [facility] Comment on above: Performed By: #### T SGL #### [address] [place] [address] Platelet mean volume Entitic volume (Bld) 7.4 fL Normal 7.4-10.4 [facility] Comment on above: Performed By: #### T SGL #### [address] [place] [address] Platelets #/vol (Bld) 367 10*3/uL Normal 140-440 [facility] Comment on above: Performed By: #### T SGL #### [address] [place] [address] RBC #/vol (Bld) 3.69 10*6/uL Low 4.40-5.90 [facility] Comment on above: Performed By: #### T SGL #### [address] [place] [address] WBC #/vol (Bld) 13.6 10*3/uL High 3.6-10.7 [facility] Comment on above: Performed By: #### T SGL #### [address] [place] [address] Magnesiumon 07-21-2018 Magnesium mass conc 2.6 mg/dL High 1.6-2.3 [facility] Comment on above: Performed By: #### T SGL #### [address] [place] [address] Phosphoruson 07-21-2018 Phosphate mass conc 4.2 mg/dL Normal 2.5-4.5 [facility] Comment on above: Performed By: #### T SGL #### [address] [place] [address] Triglycerideon 07-21-2018 Triglyceride mass conc 105 mg/dL Normal <150 [facility] Comment on above: Performed By: #### T SGL #### [address] [place] [address] Add on test from HISon 07-20 Add on test from HIS Accepted Normal [facility] Comment on above: Result Comment: Spec imen available & acceptable for analysis. Performed By: #### A DDON #### [address] [place] [address] Basic Metabolic Panelon 06-30 Calcium mass conc 7.7 mg/dL Low 8.4-10.4 [facility] Comment on above: Performed By: #### A DDON #### [address] [place] [address] Glucose mass conc 96 mg/dL Normal 70-100 [facility] Comment on above: Performed By: #### A DDON #### [address] [place] [address] Urea nitrogen mass conc 22 mg/dL High 7-20 [facility] Comment on above: Performed By: #### A DDON #### [facility] [address] [place] [facility] [address] Anion gap molar conc 10 Normal [facility] Comment on above: Performed By: #### A DDON #### [facility] [address] [place] [address] CO2 molar conc 29 mmol/L Normal 22-30 [facility] Comment on above: Performed By: #### A DDON #### [facility] [address] [place] [address] Creatinine mass conc 0.87 mg/dL Normal 0.52-1.25 [facility] Comment on above: Performed By: #### A DDON #### [facility] [address] [place] [facility] [address] GFR/1.73 sq M predicted among blacks MDRD vol rate/area (S/P/Bld) mL/min/{1.73_m2} Normal >60 [facility] Comment on above: Performed By: #### A DDON #### [facility] [address] [place] [place] [address] GFR/1.73 sq M predicted among non-blacks MDRD vol rate/area (S/P/Bld) mL/min/{1.73_m2} Normal >60 [facility] Comment on above: Result Comment: Sour ce- MDRD equation with creatinine calibration to IDMS(NKDEP) eGFR not recommended for drug dose adjustment Performed By: #### A DDON #### [facility] [address] [place] [place] [address] Potassium molar conc 3.6 mmol/L Normal 3.5-5.1 [facility] Comment on above: Performed By: #### A DDON #### [facility] [address] [place] [address] Chloride molar conc 105 mmol/L Normal 98-107 [facility] Comment on above: Performed By: #### A DDON #### [facility] [address] [place], [place] Sodium molar conc 144 mmol/L Normal 135-145 [facility] Comment on above: Performed By: #### A DDON #### [address] [place] CR Abdomen APon 07-20-2018 CR Abdomen AP Patient Name: KATHYA HOOPER Diagnostic Radiology Exam Date/Time 07/20/2018 08:39:45 EDT Exam CR Abdomen AP Ordering Physician JOYA ROJAS Accession Number [id number] CPT4 Codes 07108 () Reason For Exam ileus Report Clinical [...] Transcribed Date and Time: 07/20/2018 9:29 Normal [facility] CR Chest Portableon 07-21-19 19 CR Chest Portable Patient Name: KATHYA HOOPER Diagnostic Radiology Exam Date/Time 07/20/2018 08:39:26 EDT Exam CR Chest Portable Ordering Physician MARIA EUGENIA PEREZ Accession Number [id number] CPT4 Codes 66346 () Reason For Exam ETT placement Report [...] Transcribed Date and Time: 07/20/2018 9:28 Normal [facility] CT Abdomen/Pelvis w/ Contras ton 07-20-2018 CT Abdomen/Pelvis w/ Contrast Patient Name: KATHYA HOOPER CT Exam Date/Time 07/20/2018 11:30:[address] Abdomen/Pelvis w/ IV Contrast (IV Onl Ordering Physician [id number] JOYA PERRY Accession Number [id number] CPT4 Codes 81987 (CT Abdomen/Pelvis w/ IV Contrast (IV Onl) [...] Transcribed Date and Time: 07/20/2018 1:10 Normal [facility] CT Chest w/ Contraston 07-20 CT Chest w/ Contrast Patient Name: KATHYA RAY CT Exam Date/Time 07/20/2018 11:30:[address] Chest w/ Contrast Ordering Physician [id number] THAKKAR Accession Number [id number] CPT4 Codes 15373 (), Q9967 (CT ISOVUE [id number]) Reason For Exam SOB, possible pneumonia Report [...] Transcribed Date and Time: 07/20/2018 1:28 Normal [facility] Glucose,Bedsideon 07-20-2018 Glucose mass conc 128 mg/dL High 70-100 [facility] Comment on above: Result Comment: Test performed by glucose meter. Results may be 10%-15% lower than serum/plasma values. (CLIA ID [id number]) Performed By: #### A DDON #### [address] Hemogram w/ Autodiffon 07-20 Abs Baso Cnt 0.1 10*3/uL Normal 0.0-0.2 [facility] Comment on above: Performed By: #### H EMDF, PT, BMP3M, PHOS3, MG3, CK3 #### [address] #### VD25H #### [facility] [address] [facility] [place] [address] Abs Neutrophile Cnt 13.0 10*3/uL High 1.8-7.0 [facility] Comment on above: Performed By: #### H EMDF, PT, BMP3M, PHOS3, MG3, CK3 #### [address] #### VD25H #### [facility] [address] [place] [address] Basophils/100 WBC (Bld) 0.3 % Normal 0.0-2.0 [facility] Comment on above: Performed By: #### H EMDF, PT, BMP3M, PHOS3, MG3, CK3 #### [address] #### VD25H #### [facility] [address] [place] [address] Eosinophils #/vol (Bld) 0.3 10*3/uL Normal 0.0-0.5 [facility] Comment on above: Performed By: #### H EMDF, PT, BMP3M, PHOS3, MG3, CK3 #### [address] #### VD25H #### [facility] [address] [place] [facility] [address] Eosinophils/100 WBC (Bld) 1.9 % Normal 1.0-6.0 [facility] Comment on above: Performed By: #### H EMDF, PT, BMP3M, PHOS3, MG3, CK3 #### [address] #### VD25H #### [facility] [address] [place] [address] Erythrocyte distribution width Ratio (RBC) 13.3 % Normal 11.5-14.5 [facility] Comment on above: Performed By: #### H EMDF, PT, BMP3M, PHOS3, MG3, CK3 #### [address] #### VD25H #### [facility] [address] [place] [address] Granulocytes/100 WBC (Bld) 81.8 % High 40.0-80.0 [facility] Comment on above: Performed By: #### H EMDF, PT, BMP3M, PHOS3, MG3, CK3 #### [address] #### VD25H #### [facility] [address] [place] [address] Hematocrit Volume Fraction (Bld) 33.6 % Low 40.0-52.0 [facility] Comment on above: Performed By: #### H EMDF, PT, BMP3M, PHOS3, MG3, CK3 #### [address] #### VD25H #### [facility] [address] [place] [address] Hemoglobin mass conc (Bld) 11.4 g/dL Low 13.0-18.0 [facility] Comment on above: Performed By: #### H EMDF, PT, BMP3M, PHOS3, MG3, CK3 #### [address] #### VD25H #### [facility] [address] [place] [address] Lymphocytes #/vol (Bld) 1.5 10*3/uL Normal 1.0-4.3 [facility] Comment on above: Performed By: #### H EMDF, PT, BMP3M, PHOS3, MG3, CK3 #### [address] [place], [place] #### VD25H #### [facility] [address] [place] [address] Lymphocytes/100 WBC (Bld) 9.2 % Low 20.0-40.0 [facility] Comment on above: Performed By: #### H EMDF, PT, BMP3M, PHOS3, MG3, CK3 #### [address] #### VD25H #### [facility] [address] [facility] [address] MCH Entitic mass (RBC) 29.3 pg Normal 26.0-34.0 [facility] Comment on above: Performed By: #### H EMDF, PT, BMP3M, PHOS3, MG3, CK3 #### [address] #### VD25H #### [facility] [address] [place] [address] MCHC mass conc (RBC) 33.9 % Normal 32.0-36.0 [facility] Comment on above: Performed By: #### H EMDF, PT, BMP3M, PHOS3, MG3, CK3 #### [address] #### VD25H #### [facility] [address] [facility] [address] MCV Entitic volume (RBC) 86.5 fL Normal 80.0-98.0 [facility] Comment on above: Performed By: #### H EMDF, PT, BMP3M, PHOS3, MG3, CK3 #### [address] #### VD25H #### [facility] [address] [place] [address] Monocytes #/vol (Bld) 1.1 10*3/uL High 0.0-0.8 [facility] Comment on above: Performed By: #### H EMDF, PT, BMP3M, PHOS3, MG3, CK3 #### [facility] [address] [place], [place] #### VD25H #### [facility] [address] [place] [address] Monocytes/100 WBC (Bld) 6.8 % Normal 2.0-10.0 [facility] Comment on above: Performed By: #### H EMDF, PT, BMP3M, PHOS3, MG3, CK3 #### [address] [place], [place] #### VD25H #### [facility] [address] [place] [address] Platelet mean volume Entitic volume (Bld) 7.5 fL Normal 7.4-10.4 [facility] Comment on above: Performed By: #### H EMDF, PT, BMP3M, PHOS3, MG3, CK3 #### [address] [place] #### VD25H #### [facility] [address] [place] [address] Platelets #/vol (Bld) 375 10*3/uL Normal 140-440 [facility] Comment on above: Performed By: #### H EMDF, PT, BMP3M, PHOS3, MG3, CK3 #### [address] [place] #### VD25H #### [facility] [address] [place] [address] RBC #/vol (Bld) 3.88 10*6/uL Low 4.40-5.90 [facility] Comment on above: Performed By: #### H EMDF, PT, BMP3M, PHOS3, MG3, CK3 #### [address] #### VD25H #### [facility] [address] [place] [address] WBC #/vol (Bld) 15.9 10*3/uL High 3.6-10.7 [facility] Comment on above: Performed By: #### H EMDF, PT, BMP3M, PHOS3, MG3, CK3 #### [address] [place] #### VD25H #### [facility] [address] [place] [address] Phosphoruson 07-20-2018 Phosphate mass conc 5.5 mg/dL High 2.5-4.5 [facility] Comment on above: Performed By: #### A DDON #### [address] [address] [place], [place] Add on test from HISon 07-19 Add on test from HIS Accepted Normal [facility] Comment on above: Result Comment: Spec imen available & acceptable for analysis. Performed By: #### H EMDF, PT, BMP3M, PHOS3, MG3, CK3 #### [address] #### VD25H #### [facility] [address] [place] [address] Arterial Blood Gaseson 07-19 CO2 molar conc 31.5 mmol/L High 23.0-27.[address] [facility] Comment on above: Performed By: #### H EMDF, PT, BMP3M, PHOS3, MG3, CK3 #### [address] [place] #### VD25H #### [facility] [address] [place] [address] HCO3 molar conc (Bld) 30.2 mmol/L High 21.0-25.0 [facility] Comment on above: Performed By: #### H EMDF, PT, BMP3M, PHOS3, MG3, CK3 #### [address] #### VD25H #### [facility] [address] [place] [address] Hemoglobin mass conc (Bld) 11.7 g/dL Normal ScreenOnly [facility] Comment on above: Performed By: #### H EMDF, PT, BMP3M, PHOS3, MG3, CK3 #### [facility] [address] [place], [place] #### VD25H #### [facility] [address] [place] [address] Oxygen ppres (Bld) 85.1 mm[Hg] Normal 80.0-100.0 [facility] Comment on above: Performed By: #### H EMDF, PT, BMP3M, PHOS3, MG3, CK3 #### [address] [address] [place], [place] #### VD25H #### [facility] [address] [place] [address] Oxygen saturation in Blood 95.9 % Normal 95.0-100.0 [facility] Comment on above: Performed By: #### H EMDF, PT, BMP3M, PHOS3, MG3, CK3 #### [address] #### VD25H #### [facility] [address] [place] [address] pCO2 43.6 mm[Hg] Normal 35.0-45.0 [facility] Comment on above: Performed By: #### H EMDF, PT, BMP3M, PHOS3, MG3, CK3 #### [facility] [address] [place], [place] #### VD25H #### [facility] [address] [place] [address] pH (Bld) 7.458 High 7.350-7.450 [facility] Comment on above: Performed By: #### H EMDF, PT, BMP3M, PHOS3, MG3, CK3 #### [address] #### VD25H #### [facility] [address] [place] [address] Std Base Excess 5.7 mmol/L High -3.0-3.[address] [facility] [facility] Comment on above: Performed By: #### H EMDF, PT, BMP3M, PHOS3, MG3, CK3 #### [facility] [address] [place], [place] #### VD25H #### [facility] [address] [place] [address] FIO2 40% Normal [facility] Comment on above: Performed By: #### H EMDF, PT, BMP3M, PHOS3, MG3, CK3 #### [place] [address] [place], [place] #### VD25H #### [facility] [address] [place] [address] Basic Metabolic Panelon 03-2 Calcium mass conc 7.5 mg/dL Low 8.4-10.4 [facility] Comment on above: Performed By: #### H EMDF, PT, BMP3M, PHOS3, MG3, CK3 #### [place] [address] [place], [place] #### VD25H #### [facility] [address] [place] [address] Glucose mass conc 274 mg/dL High 70-100 [facility] Comment on above: Performed By: #### H EMDF, PT, BMP3M, PHOS3, MG3, CK3 #### [place] [address] [place], [place] #### VD25H #### [facility] [address] [place] [address] Anion gap molar conc 6 Normal [facility] Comment on above: Performed By: #### H EMDF, PT, BMP3M, PHOS3, MG3, CK3 #### [place] [address] [place], [place] #### VD25H #### [facility] [address] [place] [address] CO2 molar conc 31 mmol/L High 22-30 [facility] Comment on above: Performed By: #### H EMDF, PT, BMP3M, PHOS3, MG3, CK3 #### [address] [address] #### VD25H #### [facility] [address] [facility] [address] Creatinine mass conc 0.64 mg/dL Normal 0.52-1.25 [facility] Comment on above: Performed By: #### H EMDF, PT, BMP3M, PHOS3, MG3, CK3 #### [address] #### VD25H #### [facility] [address] [place] [address] GFR/1.73 sq M predicted among blacks MDRD vol rate/area (S/P/Bld) mL/min/{1.73_m2} Normal >60 [facility] Comment on above: Performed By: #### H EMDF, PT, BMP3M, PHOS3, MG3, CK3 #### [address] [address] #### VD25H #### [facility] [address] [place] [address] GFR/1.73 sq M predicted among non-blacks MDRD vol rate/area (S/P/Bld) mL/min/{1.73_m2} Normal >60 [facility] Comment on above: Result Comment: Sour ce- MDRD equation with creatinine calibration to IDMS(NKDEP) eGFR not recommended for drug dose adjustment Performed By: #### H EMDF, PT, BMP3M, PHOS3, MG3, CK3 #### [address] [address] #### VD25H #### [facility] [address] [facility] [address] Urea nitrogen mass conc 15 mg/dL Normal 7-20 [facility] Comment on above: Performed By: #### H EMDF, PT, BMP3M, PHOS3, MG3, CK3 #### [facility] [address] [place] [address] #### VD25H #### [facility] [address] [place] [address] Chloride molar conc 105 mmol/L Normal 98-107 [facility] Comment on above: Performed By: #### H EMDF, PT, BMP3M, PHOS3, MG3, CK3 #### [facility] [address] [place] [facility] [address] #### VD25H #### [facility] [address] [place] [address] Potassium molar conc 4.3 mmol/L Normal 3.5-5.1 [facility] Comment on above: Performed By: #### H EMDF, PT, BMP3M, PHOS3, MG3, CK3 #### [place] [address] [place] [address] #### VD25H #### [facility] [address] [place] [address] Sodium molar conc 141 mmol/L Normal 135-145 [facility] Comment on above: Performed By: #### H EMDF, PT, BMP3M, PHOS3, MG3, CK3 #### [facility] [address] [place] [place] [address] #### VD25H #### [facility] [address] [place] [address] CR Abdomen APon 07-19-2018 CR Abdomen AP Patient Name: KATHYA HOOPER Diagnostic Radiology Exam Date/Time 07/19/2018 06:44:12 EDT Exam CR Abdomen AP Ordering Physician JOYA ROJAS Accession Number [id number] CPT4 Codes 46061 () Reason For Exam ileus Report Abdomen: [...] Transcribed Date and Time: 07/19/2018 7:46 Normal [facility] CR Chest Portableon 07-20-19 19 CR Chest Portable Patient Name: KATHYA HOOPER Diagnostic Radiology Exam Date/Time 07/19/2018 06:43:52 EDT Exam CR Chest Portable Ordering Physician MARIA EUGENIA PEREZ Accession Number [id number] CPT4 Codes 79175 () Reason For Exam ETT placement Report [...] Transcribed Date and Time: 07/19/2018 7:44 Normal [facility] Glucose,Bedsideon 07-19-2018 Glucose mass conc 95 mg/dL Normal 70-100 [facility] Comment on above: Result Comment: Test performed by glucose meter. Results may be 10%-15% lower than serum/plasma values. (CLIA ID [id number]) Performed By: #### H EMDF, PT, BMP3M, PHOS3, MG3, CK3 #### [facility] [address] [place] [address] #### VD25H #### [facility] [address] [place] [address] Hemogram w/ Autodiffon 07-19 Abs Baso Cnt 0.1 10*3/uL Normal 0.0-0.2 [facility] Comment on above: Performed By: #### H EMDF, PT, BMP3M, PHOS3, MG3, CK3 #### [address] [address] #### VD25H #### [facility] [address] [place] [address] Abs Neutrophile Cnt 9.8 10*3/uL High 1.8-7.0 [facility] Comment on above: Performed By: #### H EMDF, PT, BMP3M, PHOS3, MG3, CK3 #### [address] #### VD25H #### [place] [address] [place] [address] Basophils/100 WBC (Bld) 0.5 % Normal 0.0-2.0 [facility] Comment on above: Performed By: #### H EMDF, PT, BMP3M, PHOS3, MG3, CK3 #### [address] #### VD25H #### [place] [address] [place] [address] Eosinophils #/vol (Bld) 0.3 10*3/uL Normal 0.0-0.5 [facility] Comment on above: Performed By: #### H EMDF, PT, BMP3M, PHOS3, MG3, CK3 #### [address] #### VD25H #### [place] [address] [place] [address] Eosinophils/100 WBC (Bld) 2.5 % Normal 1.0-6.0 [facility] Comment on above: Performed By: #### H EMDF, PT, BMP3M, PHOS3, MG3, CK3 #### [address] [place] #### VD25H #### [facility] [address] [place] [address] Erythrocyte distribution width Ratio (RBC) 13.3 % Normal 11.5-14.5 [facility] Comment on above: Performed By: #### H EMDF, PT, BMP3M, PHOS3, MG3, CK3 #### [address] #### VD25H #### [facility] [address] [place] [address] Granulocytes/100 WBC (Bld) 80.4 % High 40.0-80.0 [facility] Comment on above: Performed By: #### H EMDF, PT, BMP3M, PHOS3, MG3, CK3 #### [address] #### VD25H #### [facility] [address] [place] [address] Hematocrit Volume Fraction (Bld) 30.6 % Low 40.0-52.0 [facility] Comment on above: Performed By: #### H EMDF, PT, BMP3M, PHOS3, MG3, CK3 #### [address] #### VD25H #### [facility] [address] [place] [address] Hemoglobin mass conc (Bld) 10.5 g/dL Low 13.0-18.0 [facility] Comment on above: Performed By: #### H EMDF, PT, BMP3M, PHOS3, MG3, CK3 #### [address] #### VD25H #### [facility] [address] [place] [address] Lymphocytes #/vol (Bld) 1.1 10*3/uL Normal 1.0-4.3 [facility] Comment on above: Performed By: #### H EMDF, PT, BMP3M, PHOS3, MG3, CK3 #### [address] [place], [place] #### VD25H #### [facility] [address] [place] [address] Lymphocytes/100 WBC (Bld) 9.1 % Low 20.0-40.0 [facility] Comment on above: Performed By: #### H EMDF, PT, BMP3M, PHOS3, MG3, CK3 #### [place] [address] [place], [place] #### VD25H #### [facility] [address] [place] [address] MCH Entitic mass (RBC) 29.7 pg Normal 26.0-34.0 [facility] Comment on above: Performed By: #### H EMDF, PT, BMP3M, PHOS3, MG3, CK3 #### [address] #### VD25H #### [facility] [address] [place] [address] MCHC mass conc (RBC) 34.3 % Normal 32.0-36.0 [facility] Comment on above: Performed By: #### H EMDF, PT, BMP3M, PHOS3, MG3, CK3 #### [address] #### VD25H #### [facility] [address] [place] [address] MCV Entitic volume (RBC) 86.7 fL Normal 80.0-98.0 [facility] Comment on above: Performed By: #### H EMDF, PT, BMP3M, PHOS3, MG3, CK3 #### [address] #### VD25H #### [facility] [address] [place] [address] Monocytes #/vol (Bld) 0.9 10*3/uL High 0.0-0.8 [facility] Comment on above: Performed By: #### H EMDF, PT, BMP3M, PHOS3, MG3, CK3 #### [facility] [address] [place], [place] #### VD25H #### [facility] [address] [place] [address] Monocytes/100 WBC (Bld) 7.5 % Normal 2.0-10.0 [facility] Comment on above: Performed By: #### H EMDF, PT, BMP3M, PHOS3, MG3, CK3 #### [address] [place], [place] #### VD25H #### [facility] [address] [place] [address] Platelet mean volume Entitic volume (Bld) 7.3 fL Low 7.4-10.4 [facility] Comment on above: Performed By: #### H EMDF, PT, BMP3M, PHOS3, MG3, CK3 #### [place] [address] [place], [place] #### VD25H #### [facility] [address] [place] [address] Platelets #/vol (Bld) 329 10*3/uL Normal 140-440 [facility] Comment on above: Performed By: #### H EMDF, PT, BMP3M, PHOS3, MG3, CK3 #### [address] #### VD25H #### [facility] [address] [place] [address] RBC #/vol (Bld) 3.53 10*6/uL Low 4.40-5.90 [facility] Comment on above: Performed By: #### H EMDF, PT, BMP3M, PHOS3, MG3, CK3 #### [address] [place], [place] #### VD25H #### [facility] [address] [place] [address] WBC #/vol (Bld) 12.2 10*3/uL High 3.6-10.7 [facility] Comment on above: Performed By: #### H EMDF, PT, BMP3M, PHOS3, MG3, CK3 #### [place] [address] [place], [place] #### VD25H #### [facility] [address] [place] [address] Magnesiumon 07-19-2018 Magnesium mass conc 2.3 mg/dL Normal 1.6-2.3 [facility] Comment on above: Performed By: #### H EMDF, PT, BMP3M, PHOS3, MG3, CK3 #### [address] #### VD25H #### [facility] [address] [facility] [address] Procalcitoninon 07-19-2018 Protein mass conc 0.15 ng/mL Abnormal <0.10 [facility] Comment on above: Performed By: #### H EMDF, PT, BMP3M, PHOS3, MG3, CK3 #### [address] #### VD25H #### [facility] [address] [place] [address] Interpretation See Below Normal [facility] Comment on above: Result Comment: PCT <0.50 = Low risk of severe sepsis and/or septic shock. PCT >2.00 = High risk of severe sepsis and/or septic shock. Performed By: #### H EMDF, PT, BMP3M, PHOS3, MG3, CK3 #### [address] #### VD25H #### [facility] [address] [place] [address] VL Venous Duplex US Lower Ex t Bilateralon 07-19-2018 VL Venous Duplex US Lower Ext Bilateral Patient Name: KATHYA HOOPER Ultrasound Exam Date/Time 07/19/2018 11:10:14 EDT Exam VL Venous Duplex US Lower Ext Bilateral Ordering Physician ETIENNE MARTÍNEZ JULIE Accession Number [id number] CPT4 Codes 76528 () Reason For Exam edema Report [facility] --- Lower Extremity Venous Duplex Report Patient Name: Kathya Hooper : 1955 Study Date: 07/19/2018 W (63yrs) Age: 63 Account: [id number] Gender: M Loc: [id number] BP: Ordering: Yesenia Martínez Technologist: Ordering Physician: Yesenia Martínez Member Of Parliament: León Chaidez RVT [facility] Interpreting Physician: Ricardo Hall MD --- Location: [facility] --- INDICATIONS: Edema. bilateral calf [...] performed. The images were obtained using a [employer] E9 vascular ultrasound machine. --- VENOUS FLOW [...] --+ Electronically signed by: Ricardo Hall MD [id number] Final Dictated: 07/20/2018 10:49 am Dictating Physician: RICARDO HALL Signed Date and Time: 07/19/2018 11:03 am Signed by: RICARDO HALL Normal [facility] Basic Metabolic Panelon 03-2 Calcium mass conc 7.9 mg/dL Low 8.4-10.4 [facility] Comment on above: Performed By: #### H EMDF, PT, BMP3M, PHOS3, MG3, CK3 #### [facility] [address] [place] [address] #### VD25H #### [facility] [address] [place] [address] Glucose mass conc 113 mg/dL High 70-100 [facility] Comment on above: Performed By: #### H EMDF, PT, BMP3M, PHOS3, MG3, CK3 #### [place] [address] [place] #### VD25H #### [facility] [address] [place] [address] Anion gap molar conc 7 Normal [facility] Comment on above: Performed By: #### H EMDF, PT, BMP3M, PHOS3, MG3, CK3 #### [place] [address] [place] #### VD25H #### [facility] [address] [place] [address] CO2 molar conc 31 mmol/L High 22-30 [facility] Comment on above: Performed By: #### H EMDF, PT, BMP3M, PHOS3, MG3, CK3 #### [address] #### VD25H #### [facility] [address] [place] [address] Creatinine mass conc 0.59 mg/dL Normal 0.52-1.25 [facility] Comment on above: Performed By: #### H EMDF, PT, BMP3M, PHOS3, MG3, CK3 #### [address] #### VD25H #### [facility] [address] [place] [address] GFR/1.73 sq M predicted among blacks MDRD vol rate/area (S/P/Bld) mL/min/{1.73_m2} Normal >60 [facility] Comment on above: Performed By: #### H EMDF, PT, BMP3M, PHOS3, MG3, CK3 #### [address] [place], [place] #### VD25H #### [facility] [address] [place] [address] GFR/1.73 sq M predicted among non-blacks MDRD vol rate/area (S/P/Bld) mL/min/{1.73_m2} Normal >60 [facility] Comment on above: Result Comment: Sour ce- MDRD equation with creatinine calibration to IDMS(NKDEP) eGFR not recommended for drug dose adjustment Performed By: #### H EMDF, PT, BMP3M, PHOS3, MG3, CK3 #### [facility] [address] [place] #### VD25H #### [facility] [address] [place] [address] Urea nitrogen mass conc 19 mg/dL Normal 7-20 [facility] Comment on above: Performed By: #### H EMDF, PT, BMP3M, PHOS3, MG3, CK3 #### [place] [address] [facility] #### VD25H #### [facility] [address] [place] [address] Chloride molar conc 104 mmol/L Normal 98-107 [facility] Comment on above: Performed By: #### H EMDF, PT, BMP3M, PHOS3, MG3, CK3 #### [place] [address] [facility] #### VD25H #### [facility] [address] [place] [address] Potassium molar conc 3.4 mmol/L Low 3.5-5.1 [facility] Comment on above: Performed By: #### H EMDF, PT, BMP3M, PHOS3, MG3, CK3 #### [place] [address] [facility] #### VD25H #### [facility] [address] [place] [address] Sodium molar conc 142 mmol/L Normal 135-145 [facility] Comment on above: Performed By: #### H EMDF, PT, BMP3M, PHOS3, MG3, CK3 #### [place] [address] [facility] #### VD25H #### [facility] [address] [place] [address] CR Abdomen APon 07-18-2018 CR Abdomen AP Patient Name: KATHYA HOOPER Diagnostic Radiology Exam Date/Time 07/18/2018 06:52:18 EDT Exam CR Abdomen AP Ordering Physician [id number] JOYA PERRY Accession Number [id number] CPT4 Codes 90910 () Reason For Exam ileus Report CLINICAL [...] Time: 07/18/2018 2:34 pm Signed by: MD JERNIAGN JEFFREY Transcribed Date and Time: 07/18/2018 2:33 Normal [facility] CR Chest Portableon 07-19-19 19 CR Chest Portable Patient Name: KATHYA HOOPER Diagnostic Radiology Exam Date/Time 07/18/2018 06:52:50 EDT Exam CR Chest Portable Ordering Physician MARIA EUGENIA PEREZ Accession Number [id number] CPT4 Codes 06243 () Reason For Exam ETT placement Report [...] Transcribed Date and Time: 07/18/2018 2:32 Normal [facility] Hemogram w/ Autodiffon 07-18 Abs Baso Cnt 0.0 10*3/uL Normal 0.0-0.2 [facility] Comment on above: Performed By: #### H EMDF, PT, BMP3M, PHOS3, MG3, CK3 #### [address] #### VD25H #### [facility] [address] [place] [address] Abs Neutrophile Cnt 8.6 10*3/uL High 1.8-7.0 [facility] Comment on above: Performed By: #### H EMDF, PT, BMP3M, PHOS3, MG3, CK3 #### [address] #### VD25H #### [facility] [address] [place] [address] Basophils/100 WBC (Bld) 0.4 % Normal 0.0-2.0 [facility] Comment on above: Performed By: #### H EMDF, PT, BMP3M, PHOS3, MG3, CK3 #### [address] #### VD25H #### [facility] [address] [place] [address] Eosinophils #/vol (Bld) 0.2 10*3/uL Normal 0.0-0.5 [facility] Comment on above: Performed By: #### H EMDF, PT, BMP3M, PHOS3, MG3, CK3 #### [facility] [address] [place], [place] #### VD25H #### [facility] [address] [place] [address] Eosinophils/100 WBC (Bld) 2.1 % Normal 1.0-6.0 [facility] Comment on above: Performed By: #### H EMDF, PT, BMP3M, PHOS3, MG3, CK3 #### [address] #### VD25H #### [facility] [address] [place] [address] Erythrocyte distribution width Ratio (RBC) 13.4 % Normal 11.5-14.5 [facility] Comment on above: Performed By: #### H EMDF, PT, BMP3M, PHOS3, MG3, CK3 #### [address] #### VD25H #### [facility] [address] [place] [address] Granulocytes/100 WBC (Bld) 80.0 % Normal 40.0-80.0 [facility] Comment on above: Performed By: #### H EMDF, PT, BMP3M, PHOS3, MG3, CK3 #### [address] #### VD25H #### [facility] [address] [place] [address] Hematocrit Volume Fraction (Bld) 37.3 % Low 40.0-52.0 [facility] Comment on above: Performed By: #### H EMDF, PT, BMP3M, PHOS3, MG3, CK3 #### [address] #### VD25H #### [facility] [address] [place] [address] Hemoglobin mass conc (Bld) 12.6 g/dL Low 13.0-18.0 [facility] Comment on above: Performed By: #### H EMDF, PT, BMP3M, PHOS3, MG3, CK3 #### [address] #### VD25H #### [facility] [address] [place] [address] Lymphocytes #/vol (Bld) 1.1 10*3/uL Normal 1.0-4.3 [facility] Comment on above: Performed By: #### H EMDF, PT, BMP3M, PHOS3, MG3, CK3 #### [address] #### VD25H #### [facility] [address] [place] [address] Lymphocytes/100 WBC (Bld) 10.3 % Low 20.0-40.0 [facility] Comment on above: Performed By: #### H EMDF, PT, BMP3M, PHOS3, MG3, CK3 #### [address] #### VD25H #### [facility] [address] [place] [address] MCH Entitic mass (RBC) 29.4 pg Normal 26.0-34.0 [facility] Comment on above: Performed By: #### H EMDF, PT, BMP3M, PHOS3, MG3, CK3 #### [address] #### VD25H #### [facility] [address] [place] [address] MCHC mass conc (RBC) 33.9 % Normal 32.0-36.0 [facility] Comment on above: Performed By: #### H EMDF, PT, BMP3M, PHOS3, MG3, CK3 #### [address] #### VD25H #### [facility] [address] [place] [address] MCV Entitic volume (RBC) 86.8 fL Normal 80.0-98.0 [facility] Comment on above: Performed By: #### H EMDF, PT, BMP3M, PHOS3, MG3, CK3 #### [place] [address] [place], [place] #### VD25H #### [facility] [address] [place] [address] Monocytes #/vol (Bld) 0.8 10*3/uL Normal 0.0-0.8 [facility] Comment on above: Performed By: #### H EMDF, PT, BMP3M, PHOS3, MG3, CK3 #### [address] #### VD25H #### [facility] [address] [place] [address] Monocytes/100 WBC (Bld) 7.2 % Normal 2.0-10.0 [facility] Comment on above: Performed By: #### H EMDF, PT, BMP3M, PHOS3, MG3, CK3 #### [address] #### VD25H #### [facility] [address] [place] [address] Platelet mean volume Entitic volume (Bld) 7.8 fL Normal 7.4-10.4 [facility] Comment on above: Performed By: #### H EMDF, PT, BMP3M, PHOS3, MG3, CK3 #### [place] [address] [place] #### VD25H #### [facility] [address] [place] [address] Platelets #/vol (Bld) 301 10*3/uL Normal 140-440 [facility] Comment on above: Performed By: #### H EMDF, PT, BMP3M, PHOS3, MG3, CK3 #### [address] #### VD25H #### [facility] [address] [place] [address] RBC #/vol (Bld) 4.29 10*6/uL Low 4.40-5.90 [facility] Comment on above: Performed By: #### H EMDF, PT, BMP3M, PHOS3, MG3, CK3 #### [address] #### VD25H #### [facility] [address] [place] [address] WBC #/vol (Bld) 10.8 10*3/uL High 3.6-10.7 [facility] Comment on above: Performed By: #### H EMDF, PT, BMP3M, PHOS3, MG3, CK3 #### [address] #### VD25H #### [facility] [address] [place] [address] Arterial Blood Gaseson 07-17 CO2 molar conc 29.7 mmol/L High 23.0-27.[address] [facility] Comment on above: Performed By: #### H EMDF, PT, BMP3M, PHOS3, MG3, CK3 #### [address] #### VD25H #### [facility] [address] [place] [address] HCO3 molar conc (Bld) 28.4 mmol/L High 21.0-25.0 [facility] Comment on above: Performed By: #### H EMDF, PT, BMP3M, PHOS3, MG3, CK3 #### [address] #### VD25H #### [facility] [address] [place] [address] Hemoglobin mass conc (Bld) 11.1 g/dL Normal ScreenOnly [facility] Comment on above: Performed By: #### H EMDF, PT, BMP3M, PHOS3, MG3, CK3 #### [address] #### VD25H #### [facility] [address] [place] [address] Oxygen ppres (Bld) 109.2 mm[Hg] High 80.0-100.0 [facility] Comment on above: Performed By: #### H EMDF, PT, BMP3M, PHOS3, MG3, CK3 #### [place] [address] [place], [place] #### VD25H #### [facility] [address] [place] [address] Oxygen saturation in Blood 97.8 % Normal 95.0-100.0 [facility] Comment on above: Performed By: #### H EMDF, PT, BMP3M, PHOS3, MG3, CK3 #### [address] #### VD25H #### [facility] [address] [place] [address] pCO2 39.8 mm[Hg] Normal 35.0-45.0 [facility] Comment on above: Performed By: #### H EMDF, PT, BMP3M, PHOS3, MG3, CK3 #### [place] [address] [place] #### VD25H #### [facility] [address] [place] [address] pH (Bld) 7.472 High 7.350-7.450 [facility] Comment on above: Performed By: #### H EMDF, PT, BMP3M, PHOS3, MG3, CK3 #### [address] #### VD25H #### [facility] [address] [place] [address] Std Base Excess 4.5 mmol/L High -3.0-3.[address] [facility] Comment on above: Performed By: #### H EMDF, PT, BMP3M, PHOS3, MG3, CK3 #### [place] [address] [place] #### VD25H #### [facility] [facility] [address] [place] [address] FIO2 60% Normal [facility] Comment on above: Performed By: #### H EMDF, PT, BMP3M, PHOS3, MG3, CK3 #### [place] [address] [facility], [place] #### VD25H #### [facility] [address] [place] [address] Basic Metabolic Panelon - Anion gap molar conc 6 Normal [facility] Comment on above: Performed By: #### H EMDF, PT, BMP3M, PHOS3, MG3, CK3 #### [place] [address] [facility] #### VD25H #### [facility] [address] [place] [address] Calcium mass conc 8.0 mg/dL Low 8.4-10.4 [facility] Comment on above: Performed By: #### H EMDF, PT, BMP3M, PHOS3, MG3, CK3 #### [place] [address] [facility] #### VD25H #### [facility] [address] [place] [address] CO2 molar conc 31 mmol/L High 22-30 [facility] Comment on above: Performed By: #### H EMDF, PT, BMP3M, PHOS3, MG3, CK3 #### [place] [address] [facility] #### VD25H #### [facility] [address] [place] [address] Glucose mass conc 107 mg/dL High 70-100 [facility] Comment on above: Performed By: #### H EMDF, PT, BMP3M, PHOS3, MG3, CK3 #### [place] [address] [facility] #### VD25H #### [facility] [address] [place] [address] Urea nitrogen mass conc 22 mg/dL High 7-20 [facility] Comment on above: Performed By: #### H EMDF, PT, BMP3M, PHOS3, MG3, CK3 #### [facility] [address] [place], [place] #### VD25H #### [facility] [address] [place] [address] Creatinine mass conc 0.66 mg/dL Normal 0.52-1.25 [facility] Comment on above: Performed By: #### H EMDF, PT, BMP3M, PHOS3, MG3, CK3 #### [address] #### VD25H #### [facility] [address] [place] [address] GFR/1.73 sq M predicted among blacks MDRD vol rate/area (S/P/Bld) mL/min/{1.73_m2} Normal >60 [facility] Comment on above: Performed By: #### H EMDF, PT, BMP3M, PHOS3, MG3, CK3 #### [address] #### VD25H #### [facility] [address] [place] [address] GFR/1.73 sq M predicted among non-blacks MDRD vol rate/area (S/P/Bld) mL/min/{1.73_m2} Normal >60 [facility] Comment on above: Result Comment: Sour ce- MDRD equation with creatinine calibration to IDMS(NKDEP) eGFR not recommended for drug dose adjustment Performed By: #### H EMDF, PT, BMP3M, PHOS3, MG3, CK3 #### [facility] [address] [place], [place] #### VD25H #### [facility] [address] [place] [address] Chloride molar conc 105 mmol/L Normal 98-107 [facility] Comment on above: Performed By: #### H EMDF, PT, BMP3M, PHOS3, MG3, CK3 #### [facility] [address] [place] [place] [address] #### VD25H #### [facility] [address] [place] [address] Potassium molar conc 3.9 mmol/L Normal 3.5-5.1 [facility] Comment on above: Performed By: #### H EMDF, PT, BMP3M, PHOS3, MG3, CK3 #### [facility] [address] [place] [place] [address] #### VD25H #### [facility] [address] [place] [address] Sodium molar conc 142 mmol/L Normal 135-145 [facility] Comment on above: Performed By: #### H EMDF, PT, BMP3M, PHOS3, MG3, CK3 #### [facility] [address] [place] [place] [address] #### VD25H #### [facility] [address] [place] [address] CR Abdomen APon 07-17-2018 CR Abdomen AP Patient Name: KATHYA HOOPER Diagnostic Radiology Exam Date/Time 07/17/2018 12:46:31 EDT Exam CR Abdomen AP Ordering Physician [id number] AGUILERA Accession Number [id number] CPT4 Codes 08348 () Reason For Exam ileus Report Abdomen: [...] RISA Transcribed Date and Time: 07/17/2018 12:46 [facility] CR Abdomen AP Patient Name: KATHYA HOOPER Diagnostic Radiology Exam Date/Time 07/17/2018 06:25:43 EDT Exam CR Abdomen AP Ordering Physician [id number] ORLANDO JOYA Accession Number [id number] CPT4 Codes 57524 () Reason For Exam ileus Report Abdomen: [...] RISA Transcribed Date and Time: 07/17/2018 7:16 [facility] CR Chest Portableon 07-18-19 19 CR Chest Portable Patient Name: KATHYA HOOPER Diagnostic Radiology Exam Date/Time 07/17/2018 18:08:41 EDT Exam CR Chest Portable Ordering Physician SALO DAVIS Accession Number [id number] CPT4 Codes 43647 () Reason For Exam picc Report CHEST [...] Transcribed Date and Time: 07/17/2018 7:24 Normal [facility] CR Chest Portable Patient Name: KATHYA HOOPER Diagnostic Radiology Exam Date/Time 07/17/2018 18:08:41 EDT Exam CR Chest Portable Ordering Physician SALO DAVIS Accession Number [id number] CPT4 Codes 04956 () Reason For Exam reheck line tip [...] R Transcribed Date and Time: 07/17/2018 7:21 [facility] CR Chest Portable Patient Name: KATHYA HOOPER Diagnostic Radiology Exam Date/Time 07/17/2018 06:26:06 EDT Exam CR Chest Portable Ordering Physician MARIA EUGENIA PEREZ Accession Number [id number] CPT4 Codes 44089 () Reason For Exam ETT placement Report [...] Transcribed Date and Time: 07/17/2018 7:17 Normal [facility] Hemogram w/ Autodiffon 07-17 Abs Baso Cnt 0.0 10*3/uL Normal 0.0-0.2 [facility] Comment on above: Performed By: #### H EMDF, PT, BMP3M, PHOS3, MG3, CK3 #### [facility] [address] [place] [address] #### VD25H #### [facility] [address] [place] [address] Abs Neutrophile Cnt 8.1 10*3/uL High 1.8-7.0 [facility] Comment on above: Performed By: #### H EMDF, PT, BMP3M, PHOS3, MG3, CK3 #### [facility] [address] [place] [address] #### VD25H #### [facility] [address] [place] [address] Basophils/100 WBC (Bld) 0.4 % Normal 0.0-2.0 [facility] Comment on above: Performed By: #### H EMDF, PT, BMP3M, PHOS3, MG3, CK3 #### [facility] [address] [place], [place] #### VD25H #### [facility] [address] [place] [address] Eosinophils #/vol (Bld) 0.1 10*3/uL Normal 0.0-0.5 [facility] Comment on above: Performed By: #### H EMDF, PT, BMP3M, PHOS3, MG3, CK3 #### [place] [address] [address] [place], [place] #### VD25H #### [facility] [address] [place] [address] Eosinophils/100 WBC (Bld) 1.4 % Normal 1.0-6.0 [facility] Comment on above: Performed By: #### H EMDF, PT, BMP3M, PHOS3, MG3, CK3 #### [address] #### VD25H #### [facility] [address] [place] [address] Erythrocyte distribution width Ratio (RBC) 13.5 % Normal 11.5-14.5 [facility] Comment on above: Performed By: #### H EMDF, PT, BMP3M, PHOS3, MG3, CK3 #### [address] #### VD25H #### [facility] [address] [place] [address] Granulocytes/100 WBC (Bld) 78.6 % Normal 40.0-80.0 [facility] Comment on above: Performed By: #### H EMDF, PT, BMP3M, PHOS3, MG3, CK3 #### [address] #### VD25H #### [facility] [address] [place] [address] Hematocrit Volume Fraction (Bld) 31.3 % Low 40.0-52.0 [facility] Comment on above: Performed By: #### H EMDF, PT, BMP3M, PHOS3, MG3, CK3 #### [address] [place], [place] #### VD25H #### [facility] [address] [place] [address] Hemoglobin mass conc (Bld) 10.4 g/dL Low 13.0-18.0 [facility] Comment on above: Performed By: #### H EMDF, PT, BMP3M, PHOS3, MG3, CK3 #### [address] [place], [place] #### VD25H #### [facility] [address] [place] [address] Lymphocytes #/vol (Bld) 1.0 10*3/uL Normal 1.0-4.3 [facility] Comment on above: Performed By: #### H EMDF, PT, BMP3M, PHOS3, MG3, CK3 #### [address] #### VD25H #### [facility] [address] [place] [address] Lymphocytes/100 WBC (Bld) 10.0 % Low 20.0-40.0 [facility] Comment on above: Performed By: #### H EMDF, PT, BMP3M, PHOS3, MG3, CK3 #### [address] #### VD25H #### [facility] [address] [place] [address] MCH Entitic mass (RBC) 29.3 pg Normal 26.0-34.0 [facility] Comment on above: Performed By: #### H EMDF, PT, BMP3M, PHOS3, MG3, CK3 #### [address] #### VD25H #### [facility] [address] [place] [address] MCHC mass conc (RBC) 33.3 % Normal 32.0-36.0 [facility] Comment on above: Performed By: #### H EMDF, PT, BMP3M, PHOS3, MG3, CK3 #### [address] [place], [place] #### VD25H #### [facility] [address] [place] [address] MCV Entitic volume (RBC) 87.9 fL Normal 80.0-98.0 [facility] Comment on above: Performed By: #### H EMDF, PT, BMP3M, PHOS3, MG3, CK3 #### [address] #### VD25H #### [facility] [address] [place] [address] Monocytes #/vol (Bld) 1.0 10*3/uL High 0.0-0.8 [facility] Comment on above: Performed By: #### H EMDF, PT, BMP3M, PHOS3, MG3, CK3 #### [address] #### VD25H #### [facility] [address] [place] [address] Monocytes/100 WBC (Bld) 9.6 % Normal 2.0-10.0 [facility] Comment on above: Performed By: #### H EMDF, PT, BMP3M, PHOS3, MG3, CK3 #### [address] #### VD25H #### [facility] [address] [place] [address] Platelet mean volume Entitic volume (Bld) 7.6 fL Normal 7.4-10.4 [facility] Comment on above: Performed By: #### H EMDF, PT, BMP3M, PHOS3, MG3, CK3 #### [address] #### VD25H #### [facility] [address] [place] [address] Platelets #/vol (Bld) 307 10*3/uL Normal 140-440 [facility] Comment on above: Performed By: #### H EMDF, PT, BMP3M, PHOS3, MG3, CK3 #### [facility] [address] [place], [place] #### VD25H #### [facility] [address] [place] [address] RBC #/vol (Bld) 3.56 10*6/uL Low 4.40-5.90 [facility] Comment on above: Performed By: #### H EMDF, PT, BMP3M, PHOS3, MG3, CK3 #### [address] #### VD25H #### [facility] [address] [place] [address] WBC #/vol (Bld) 10.2 10*3/uL Normal 3.6-10.7 [facility] Comment on above: Performed By: #### H EMDF, PT, BMP3M, PHOS3, MG3, CK3 #### [place] [address] [place], [place] #### VD25H #### [facility] [address] [place] [address] Basic Metabolic Panelon - Calcium mass conc 8.1 mg/dL Low 8.4-10.4 [facility] Comment on above: Performed By: #### H EMDF, PT, BMP3M, PHOS3, MG3, CK3 #### [address] [place], [place] #### VD25H #### [facility] [address] [place] [address] Anion gap molar conc 5 Normal [facility] Comment on above: Performed By: #### H EMDF, PT, BMP3M, PHOS3, MG3, CK3 #### [address] #### VD25H #### [facility] [address] [place] [address] CO2 molar conc 32 mmol/L High 22-30 [facility] Comment on above: Performed By: #### H EMDF, PT, BMP3M, PHOS3, MG3, CK3 #### [address] [address] #### VD25H #### [facility] [address] [place] [address] Creatinine mass conc 0.62 mg/dL Normal 0.52-1.25 [facility] Comment on above: Performed By: #### H EMDF, PT, BMP3M, PHOS3, MG3, CK3 #### [address] #### VD25H #### [place] [address] [place] [address] GFR/1.73 sq M predicted among blacks MDRD vol rate/area (S/P/Bld) mL/min/{1.73_m2} Normal >60 [facility] Comment on above: Performed By: #### H EMDF, PT, BMP3M, PHOS3, MG3, CK3 #### [address] #### VD25H #### [address] [place] [address] GFR/1.73 sq M predicted among non-blacks MDRD vol rate/area (S/P/Bld) mL/min/{1.73_m2} Normal >60 [facility] Comment on above: Result Comment: Sour ce- MDRD equation with creatinine calibration to IDMS(NKDEP) eGFR not recommended for drug dose adjustment Performed By: #### H EMDF, PT, BMP3M, PHOS3, MG3, CK3 #### [address] #### VD25H #### [place] [address] [place] [address] Glucose mass conc 103 mg/dL High 70-100 [facility] Comment on above: Performed By: #### H EMDF, PT, BMP3M, PHOS3, MG3, CK3 #### [place] [address] [place] [address] #### VD25H #### [facility] [address] [place] [address] Urea nitrogen mass conc 20 mg/dL Normal 7-20 S [facility] Comment on above: Performed By: #### H EMDF, PT, BMP3M, PHOS3, MG3, CK3 #### [place] [address] [facility] #### VD25H #### [facility] [address] [place] [address] Chloride molar conc 107 mmol/L Normal 98-107 [facility] Comment on above: Performed By: #### H EMDF, PT, BMP3M, PHOS3, MG3, CK3 #### [place] [address] [facility] #### VD25H #### [facility] [address] [place] [address] Potassium molar conc 3.7 mmol/L Normal 3.5-5.1 [facility] Comment on above: Performed By: #### H EMDF, PT, BMP3M, PHOS3, MG3, CK3 #### [place] [address] [facility] #### VD25H #### [facility] [address] [place] [address] Sodium molar conc 145 mmol/L Normal 135-145 [facility] Comment on above: Performed By: #### H EMDF, PT, BMP3M, PHOS3, MG3, CK3 #### [place] [address] [facility] #### VD25H #### [facility] [address] [place] [address] CR Abdomen APon 07-16-2018 CR Abdomen AP Patient Name: KATHYA HOOPER [facility]: [id number] Diagnostic Radiology Exam Date/Time 07/16/2018 08:00:58 EDT Exam CR Abdomen AP Ordering Physician [id number] CARRILLOAnanda JOYA Accession Number [id number] CPT4 Codes 51818 () Reason For Exam ileus Report KUB [...] Transcribed Date and Time: 07/16/2018 10:03 Normal [facility] CR Chest Portableon 07-17-19 CR Chest Portable Patient Name: KATHYA HOOPER Diagnostic Radiology Exam Date/Time 07/16/2018 06:19:28 EDT Exam CR Chest Portable Ordering Physician MARIA EUGENIA PEREZ Accession Number [id number] CPT4 Codes 39942 () Reason For Exam ETT placement Report [...] Transcribed Date and Time: 07/16/2018 10:10 Normal [facility] Hemogram w/ Autodiffon 07-16 Abs Baso Cnt 0.0 10*3/uL Normal 0.0-0.2 [facility] Comment on above: Performed By: #### H EMDF, PT, BMP3M, PHOS3, MG3, CK3 #### [facility] [address] [place], [place] #### VD25H #### [facility] [address] [place] [address] Abs Neutrophile Cnt 8.7 10*3/uL High 1.8-7.0 [facility] Comment on above: Performed By: #### H EMDF, PT, BMP3M, PHOS3, MG3, CK3 #### [facility] [address] [place], [place] #### VD25H #### [facility] [address] [place] [address] Basophils/100 WBC (Bld) 0.2 % Normal 0.0-2.0 [facility] Comment on above: Performed By: #### H EMDF, PT, BMP3M, PHOS3, MG3, CK3 #### [facility] [address] [place], [place] #### VD25H #### [facility] [address] [place] [address] Eosinophils #/vol (Bld) 0.1 10*3/uL Normal 0.0-0.5 [facility] Comment on above: Performed By: #### H EMDF, PT, BMP3M, PHOS3, MG3, CK3 #### [facility] [address] [place], [place] #### VD25H #### [facility] [address] [place] [address] Eosinophils/100 WBC (Bld) 0.7 % Low 1.0-6.0 [facility] Comment on above: Performed By: #### H EMDF, PT, BMP3M, PHOS3, MG3, CK3 #### [facility] [address] [place], [place] #### VD25H #### [facility] [address] [place] [address] Erythrocyte distribution width Ratio (RBC) 13.7 % Normal 11.5-14.5 [facility] Comment on above: Performed By: #### H EMDF, PT, BMP3M, PHOS3, MG3, CK3 #### [address] #### VD25H #### [facility] [address] [place] [address] Granulocytes/100 WBC (Bld) 83.0 % High 40.0-80.0 [facility] Comment on above: Performed By: #### H EMDF, PT, BMP3M, PHOS3, MG3, CK3 #### [address] #### VD25H #### [facility] [address] [place] [address] Hematocrit Volume Fraction (Bld) 30.3 % Low 40.0-52.0 [facility] Comment on above: Performed By: #### H EMDF, PT, BMP3M, PHOS3, MG3, CK3 #### [facility] [address] [place], [place] #### VD25H #### [facility] [address] [place] [address] Hemoglobin mass conc (Bld) 10.5 g/dL Low 13.0-18.0 [facility] Comment on above: Performed By: #### H EMDF, PT, BMP3M, PHOS3, MG3, CK3 #### [address] #### VD25H #### [facility] [address] [place] [address] Lymphocytes #/vol (Bld) 0.7 10*3/uL Low 1.0-4.3 [facility] Comment on above: Performed By: #### H EMDF, PT, BMP3M, PHOS3, MG3, CK3 #### [place] [address] [place], [place] #### VD25H #### [facility] [address] [place] [address] Lymphocytes/100 WBC (Bld) 6.7 % Low 20.0-40.0 [facility] Comment on above: Performed By: #### H EMDF, PT, BMP3M, PHOS3, MG3, CK3 #### [address] #### VD25H #### [facility] [address] [place] [address] MCH Entitic mass (RBC) 30.2 pg Normal 26.0-34.0 [facility] Comment on above: Performed By: #### H EMDF, PT, BMP3M, PHOS3, MG3, CK3 #### [address] #### VD25H #### [facility] [address] [place] [address] MCHC mass conc (RBC) 34.6 % Normal 32.0-36.0 [facility] Comment on above: Performed By: #### H EMDF, PT, BMP3M, PHOS3, MG3, CK3 #### [address] #### VD25H #### [facility] [address] [place] [address] MCV Entitic volume (RBC) 87.3 fL Normal 80.0-98.0 [facility] Comment on above: Performed By: #### H EMDF, PT, BMP3M, PHOS3, MG3, CK3 #### [address] #### VD25H #### [facility] [address] [place] [address] Monocytes #/vol (Bld) 1.0 10*3/uL High 0.0-0.8 [facility] Comment on above: Performed By: #### H EMDF, PT, BMP3M, PHOS3, MG3, CK3 #### [address] #### VD25H #### [facility] [address] [place] [address] Monocytes/100 WBC (Bld) 9.4 % Normal 2.0-10.0 [facility] Comment on above: Performed By: #### H EMDF, PT, BMP3M, PHOS3, MG3, CK3 #### [address] #### VD25H #### [place] [address] [place] [address] Platelet mean volume Entitic volume (Bld) 6.9 fL Low 7.4-10.4 [facility] Comment on above: Performed By: #### H EMDF, PT, BMP3M, PHOS3, MG3, CK3 #### [address] #### VD25H #### [place] [address] [place] [address] Platelets #/vol (Bld) 254 10*3/uL Normal 140-440 [facility] Comment on above: Performed By: #### H EMDF, PT, BMP3M, PHOS3, MG3, CK3 #### [address] #### VD25H #### [facility] [address] [place] [address] RBC #/vol (Bld) 3.47 10*6/uL Low 4.40-5.90 [facility] Comment on above: Performed By: #### H EMDF, PT, BMP3M, PHOS3, MG3, CK3 #### [address] [place], [place] #### VD25H #### [facility] [address] [place] [address] WBC #/vol (Bld) 10.5 10*3/uL Normal 3.6-10.7 [facility] Comment on above: Performed By: #### H EMDF, PT, BMP3M, PHOS3, MG3, CK3 #### [address] [place], [place] #### VD25H #### [place] [address] [place] [address] Arterial Blood Gaseson 07-15 CO2 molar conc 26.7 mmol/L Normal 23.0-27.0 [facility] Comment on above: Performed By: #### H EMDF, PT, BMP3M, PHOS3, MG3, CK3 #### [address] #### VD25H #### [place] [address] [place] [address] FIO2 50% Normal [facility] Comment on above: Performed By: #### H EMDF, PT, BMP3M, PHOS3, MG3, CK3 #### [address] #### VD25H #### [place] [address] [place] [address] HCO3 molar conc (Bld) 25.7 mmol/L High 21.0-25.0 [facility] Comment on above: Performed By: #### H EMDF, PT, BMP3M, PHOS3, MG3, CK3 #### [address] #### VD25H #### [place] [address] [place] [address] Hemoglobin mass conc (Bld) 12.5 g/dL Normal ScreenOnly [facility] Comment on above: Performed By: #### H EMDF, PT, BMP3M, PHOS3, MG3, CK3 #### [facility] [address] [place], [place] #### VD25H #### [facility] [address] [place] [address] Oxygen ppres (Bld) 90.4 mm[Hg] Normal 80.0-100.0 [facility] Comment on above: Performed By: #### H EMDF, PT, BMP3M, PHOS3, MG3, CK3 #### [place] [address] [place], [place] #### VD25H #### [facility] [address] [place] [address] Oxygen saturation in Blood 96.8 % Normal 95.0-100.0 [facility] Comment on above: Performed By: #### H EMDF, PT, BMP3M, PHOS3, MG3, CK3 #### [address] #### VD25H #### [facility] [address] [place] [address] pCO2 33.4 mm[Hg] Low 35.0-45.0 [facility] Comment on above: Performed By: #### H EMDF, PT, BMP3M, PHOS3, MG3, CK3 #### [address] #### VD25H #### [facility] [address] [place] [address] pH (Bld) 7.504 High 7.350-7.450 [facility] Comment on above: Performed By: #### H EMDF, PT, BMP3M, PHOS3, MG3, CK3 #### [address] [place], [place] #### VD25H #### [facility] [address] [place] [address] Std Base Excess 2.9 mmol/L Normal -3.0-3.[address] [facility] Comment on above: Performed By: #### H EMDF, PT, BMP3M, PHOS3, MG3, CK3 #### [facility] [address] [facility] #### VD25H #### [facility] [address] [place] [address] Basic Metabolic Panelon 06-29 Anion gap molar conc 8 Normal [facility] Comment on above: Performed By: #### H EMDF, PT, BMP3M, PHOS3, MG3, CK3 #### [place] [address] [facility] #### VD25H #### [facility] [address] [place] [address] Calcium mass conc 8.6 mg/dL Normal 8.4-10.4 [facility] Comment on above: Performed By: #### H EMDF, PT, BMP3M, PHOS3, MG3, CK3 #### [place] [address] [place], [place] #### VD25H #### [facility] [address] [place] [address] CO2 molar conc 29 mmol/L Normal 22-30 [facility] Comment on above: Performed By: #### H EMDF, PT, BMP3M, PHOS3, MG3, CK3 #### [place] [address] [facility] #### VD25H #### [facility] [address] [place] [address] Glucose mass conc 119 mg/dL High 70-100 [facility] Comment on above: Performed By: #### H EMDF, PT, BMP3M, PHOS3, MG3, CK3 #### [place] [address] [facility] #### VD25H #### [facility] [address] [place] [address] Urea nitrogen mass conc 23 mg/dL High 7-20 [facility] Comment on above: Performed By: #### H EMDF, PT, BMP3M, PHOS3, MG3, CK3 #### [address] [place], [place] #### VD25H #### [facility] [address] [facility], [place] [address] Creatinine mass conc 0.73 mg/dL Normal 0.52-1.25 [facility] Comment on above: Performed By: #### H EMDF, PT, BMP3M, PHOS3, MG3, CK3 #### [address] [place], [place] #### VD25H #### [facility] [address] [place] [address] GFR/1.73 sq M predicted among blacks MDRD vol rate/area (S/P/Bld) mL/min/{1.73_m2} Normal >60 [facility] Comment on above: Performed By: #### H EMDF, PT, BMP3M, PHOS3, MG3, CK3 #### [address] #### VD25H #### [place] [address] [facility] [address] GFR/1.73 sq M predicted among non-blacks MDRD vol rate/area (S/P/Bld) mL/min/{1.73_m2} Normal >60 [facility] Comment on above: Result Comment: Sour ce- MDRD equation with creatinine calibration to IDMS(NKDEP) eGFR not recommended for drug dose adjustment Performed By: #### H EMDF, PT, BMP3M, PHOS3, MG3, CK3 #### [address] #### VD25H #### [facility] [address] [facility], [place] [address] Potassium molar conc 4.1 mmol/L Normal 3.5-5.1 [facility] Comment on above: Performed By: #### H EMDF, PT, BMP3M, PHOS3, MG3, CK3 #### [address] #### VD25H #### [place] [address] [place] [address] Sodium molar conc 144 mmol/L Normal 135-145 [facility] Comment on above: Performed By: #### H EMDF, PT, BMP3M, PHOS3, MG3, CK3 #### [facility] [address] [place] [address] #### VD25H #### [facility] [address] [place] [address] Chloride molar conc 107 mmol/L Normal 98-107 [facility] Comment on above: Performed By: #### H EMDF, PT, BMP3M, PHOS3, MG3, CK3 #### [facility] [address] [place] [address] #### VD25H #### [facility] [address] [place] [address] CR Abdomen APon 07-15-2018 CR Abdomen AP Patient Name: KATHYA HOOPER Diagnostic Radiology Exam Date/Time 07/15/2018 09:25:44 EDT Exam CR Abdomen AP Ordering Physician [id number] [place], [place] Accession Number [id number] CPT4 Codes 33268 () Reason For Exam ileus Report EXAMINATION: [...] Transcribed Date and Time: 07/15/2018 10:07 Normal [facility] CR Chest Portableon 07-16-19 19 CR Chest Portable Patient Name: KATHYA HOOPER Diagnostic Radiology Exam Date/Time 07/15/2018 06:00:00 EDT Exam CR Chest Portable Ordering Physician MARIA EUGENIA PEREZ Accession Number [id number] CPT4 Codes 16708 () Reason For Exam ETT placement Report [...] Transcribed Date and Time: 07/15/2018 9:14 Normal [facility] CULT./ST. RESPIRATORYon 06-29 CULT./ST. RESPIRATORY CULT./ST. RESPIRAT [...] in clusters. Rare gram negative bacilli. Normal [facility] Comment on above: Order Comment: Speci men Source Comment:Sputum, Suctioned Performed By: #### H EMDF, PT, BMP3M, PHOS3, MG3, CK3 #### [facility] [address] [place] [address] #### VD25H #### [facility] [address] [place] [address] Hemogram w/ Autodiffon 07-15 Abs Baso Cnt 0.0 10*3/uL Normal 0.0-0.2 [facility] Comment on above: Performed By: #### H EMDF, PT, BMP3M, PHOS3, MG3, CK3 #### [facility] [address] [place], [place] #### VD25H #### [facility] [address] [place] [address] Abs Neutrophile Cnt 13.2 10*3/uL High 1.8-7.0 [facility] Comment on above: Performed By: #### H EMDF, PT, BMP3M, PHOS3, MG3, CK3 #### [address] #### VD25H #### [facility] [address] [place] [address] Basophils/100 WBC (Bld) 0.2 % Normal 0.0-2.0 [facility] Comment on above: Performed By: #### H EMDF, PT, BMP3M, PHOS3, MG3, CK3 #### [address] #### VD25H #### [facility] [address] [place] [address] Eosinophils #/vol (Bld) 0.0 10*3/uL Normal 0.0-0.5 [facility] Comment on above: Performed By: #### H EMDF, PT, BMP3M, PHOS3, MG3, CK3 #### [address] #### VD25H #### [facility] [address] [place] [address] Eosinophils/100 WBC (Bld) 0.1 % Low 1.0-6.0 [facility] Comment on above: Performed By: #### H EMDF, PT, BMP3M, PHOS3, MG3, CK3 #### [address] #### VD25H #### [facility] [address] [place] [address] Erythrocyte distribution width Ratio (RBC) 13.9 % Normal 11.5-14.5 [facility] Comment on above: Performed By: #### H EMDF, PT, BMP3M, PHOS3, MG3, CK3 #### [address] #### VD25H #### [facility] [address] [place] [address] Granulocytes/100 WBC (Bld) 88.1 % High 40.0-80.0 [facility] Comment on above: Performed By: #### H EMDF, PT, BMP3M, PHOS3, MG3, CK3 #### [address] #### VD25H #### [place] [address] [place] [address] Hematocrit Volume Fraction (Bld) 35.3 % Low 40.0-52.0 [facility] Comment on above: Performed By: #### H EMDF, PT, BMP3M, PHOS3, MG3, CK3 #### [address] #### VD25H #### [facility] [address] [place] [address] Hemoglobin mass conc (Bld) 11.9 g/dL Low 13.0-18.0 [facility] Comment on above: Performed By: #### H EMDF, PT, BMP3M, PHOS3, MG3, CK3 #### [address] #### VD25H #### [facility] [address] [place] [address] Lymphocytes #/vol (Bld) 0.8 10*3/uL Low 1.0-4.3 [facility] Comment on above: Performed By: #### H EMDF, PT, BMP3M, PHOS3, MG3, CK3 #### [address] #### VD25H #### [facility] [address] [place] [address] Lymphocytes/100 WBC (Bld) 5.0 % Low 20.0-40.0 [facility] Comment on above: Performed By: #### H EMDF, PT, BMP3M, PHOS3, MG3, CK3 #### [address] #### VD25H #### [facility] [address] [place] [address] MCH Entitic mass (RBC) 29.5 pg Normal 26.0-34.0 [facility] Comment on above: Performed By: #### H EMDF, PT, BMP3M, PHOS3, MG3, CK3 #### [address] #### VD25H #### [place] [address] [place] [address] MCHC mass conc (RBC) 33.8 % Normal 32.0-36.0 [facility] Comment on above: Performed By: #### H EMDF, PT, BMP3M, PHOS3, MG3, CK3 #### [address] #### VD25H #### [place] [address] [place] [address] MCV Entitic volume (RBC) 87.2 fL Normal 80.0-98.0 [facility] Comment on above: Performed By: #### H EMDF, PT, BMP3M, PHOS3, MG3, CK3 #### [address] #### VD25H #### [facility] [address] [place] [address] Monocytes #/vol (Bld) 1.0 10*3/uL High 0.0-0.8 [facility] Comment on above: Performed By: #### H EMDF, PT, BMP3M, PHOS3, MG3, CK3 #### [address] [place], [place] #### VD25H #### [facility] [address] [place] [address] Monocytes/100 WBC (Bld) 6.6 % Normal 2.0-10.0 [facility] Comment on above: Performed By: #### H EMDF, PT, BMP3M, PHOS3, MG3, CK3 #### [address] [place] #### VD25H #### [facility] [address] [place] [address] Platelet mean volume Entitic volume (Bld) 7.9 fL Normal 7.4-10.4 [facility] Comment on above: Performed By: #### H EMDF, PT, BMP3M, PHOS3, MG3, CK3 #### [address] #### VD25H #### [facility] [address] [place] [address] Platelets #/vol (Bld) 319 10*3/uL Normal 140-440 [facility] Comment on above: Performed By: #### H EMDF, PT, BMP3M, PHOS3, MG3, CK3 #### [address] #### VD25H #### [facility] [address] [place] [address] RBC #/vol (Bld) 4.05 10*6/uL Low 4.40-5.90 [facility] Comment on above: Performed By: #### H EMDF, PT, BMP3M, PHOS3, MG3, CK3 #### [address] #### VD25H #### [facility] [address] [place] [address] WBC #/vol (Bld) 15.0 10*3/uL High 3.6-10.7 [facility] Comment on above: Performed By: #### H EMDF, PT, BMP3M, PHOS3, MG3, CK3 #### [address] [place] #### VD25H #### [facility] [address] [place] [address] Basic Metabolic Panelon - Anion gap molar conc 9 Normal [facility] Comment on above: Performed By: #### H EMDF, PT, BMP3M, PHOS3, MG3, CK3 #### [address] [place] #### VD25H #### [facility] [address] [place] [address] Calcium mass conc 7.6 mg/dL Low 8.4-10.4 [facility] Comment on above: Performed By: #### H EMDF, PT, BMP3M, PHOS3, MG3, CK3 #### [address] [place] #### VD25H #### [facility] [address] [place] [address] CO2 molar conc 26 mmol/L Normal 22-30 [facility] Comment on above: Performed By: #### H EMDF, PT, BMP3M, PHOS3, MG3, CK3 #### [address] [place] #### VD25H #### [facility] [address] [place] [address] Glucose mass conc 148 mg/dL High 70-100 [facility] Comment on above: Performed By: #### H EMDF, PT, BMP3M, PHOS3, MG3, CK3 #### [address] [place] #### VD25H #### [facility] [address] [place] [address] Urea nitrogen mass conc 16 mg/dL Normal 7-20 [facility] Comment on above: Performed By: #### H EMDF, PT, BMP3M, PHOS3, MG3, CK3 #### [facility] [address] [place], [place] #### VD25H #### [facility] [address] [place] [address] Creatinine mass conc 0.62 mg/dL Normal 0.52-1.25 [facility] Comment on above: Performed By: #### H EMDF, PT, BMP3M, PHOS3, MG3, CK3 #### [address] [place] #### VD25H #### [facility] [address] [place] [address] GFR/1.73 sq M predicted among blacks MDRD vol rate/area (S/P/Bld) mL/min/{1.73_m2} Normal >60 [facility] Comment on above: Performed By: #### H EMDF, PT, BMP3M, PHOS3, MG3, CK3 #### [address] #### VD25H #### [facility] [address] [place] [address] GFR/1.73 sq M predicted among non-blacks MDRD vol rate/area (S/P/Bld) mL/min/{1.73_m2} Normal >60 [facility] Comment on above: Result Comment: Sour ce- MDRD equation with creatinine calibration to IDMS(NKDEP) eGFR not recommended for drug dose adjustment Performed By: #### H EMDF, PT, BMP3M, PHOS3, MG3, CK3 #### [address] #### VD25H #### [facility] [address] [place] [address] Potassium molar conc 4.5 mmol/L Normal 3.5-5.1 [facility] Comment on above: Performed By: #### H EMDF, PT, BMP3M, PHOS3, MG3, CK3 #### [address] #### VD25H #### [facility] [address] [place] [address] Sodium molar conc 137 mmol/L Normal 135-145 [facility] Comment on above: Performed By: #### H EMDF, PT, BMP3M, PHOS3, MG3, CK3 #### [facility] [address] [place] [address] #### VD25H #### [facility] [address] [place] [address] Chloride molar conc 103 mmol/L Normal 98-107 [facility] Comment on above: Performed By: #### H EMDF, PT, BMP3M, PHOS3, MG3, CK3 #### [facility] [address] [place] [address] #### VD25H #### [facility] [address] [place] [address] CR Abdomen APon 07-14-2018 CR Abdomen AP Patient Name: KATHYA HOOPER Diagnostic Radiology Exam Date/Time 07/14/2018 19:15:43 EDT Exam CR Abdomen AP Ordering Physician JOYA ROJAS Accession Number [id number] CPT4 Codes 83157 () Reason For Exam Distended with emesis [...] Transcribed Date and Time: 07/14/2018 7:28 Normal [facility] CR Chest Portableon 07-15-19 19 CR Chest Portable Patient Name: KATHYA HOOPER Diagnostic Radiology Exam Date/Time 07/14/2018 06:53:29 EDT Exam CR Chest Portable Ordering Physician MARIA EUGENIA PEREZ Accession Number [id number] CPT4 Codes 48072 () Reason For Exam ETT placement Report [...] Transcribed Date and Time: 07/14/2018 11:51 Normal [facility] Hemogram w/ Autodiffon 07-14 Abs Baso Cnt 0.0 10*3/uL Normal 0.0-0.2 [facility] Comment on above: Performed By: #### H EMDF, PT, BMP3M, PHOS3, MG3, CK3 #### [facility] [address] [place] [address] #### VD25H #### [facility] [address] [place] [address] Abs Neutrophile Cnt 11.7 10*3/uL High 1.8-7.0 [facility] Comment on above: Performed By: #### H EMDF, PT, BMP3M, PHOS3, MG3, CK3 #### [facility] [address] [place] [address] #### VD25H #### [facility] [address] [place] [address] Basophils/100 WBC (Bld) 0.3 % Normal 0.0-2.0 [facility] Comment on above: Performed By: #### H EMDF, PT, BMP3M, PHOS3, MG3, CK3 #### [facility] [address] [place], [place] #### VD25H #### [facility] [address] [place] [address] Eosinophils #/vol (Bld) 0.0 10*3/uL Normal 0.0-0.5 [facility] Comment on above: Performed By: #### H EMDF, PT, BMP3M, PHOS3, MG3, CK3 #### [address] #### VD25H #### [facility] [address] [place] [address] Eosinophils/100 WBC (Bld) 0.1 % Low 1.0-6.0 [facility] Comment on above: Performed By: #### H EMDF, PT, BMP3M, PHOS3, MG3, CK3 #### [address] #### VD25H #### [facility] [address] [place] [address] Erythrocyte distribution width Ratio (RBC) 13.8 % Normal 11.5-14.5 [facility] Comment on above: Performed By: #### H EMDF, PT, BMP3M, PHOS3, MG3, CK3 #### [address] #### VD25H #### [facility] [address] [place] [address] Granulocytes/100 WBC (Bld) 89.1 % High 40.0-80.0 [facility] Comment on above: Performed By: #### H EMDF, PT, BMP3M, PHOS3, MG3, CK3 #### [address] #### VD25H #### [facility] [address] [place] [address] Hematocrit Volume Fraction (Bld) 33.8 % Low 40.0-52.0 [facility] Comment on above: Performed By: #### H EMDF, PT, BMP3M, PHOS3, MG3, CK3 #### [address] [place] #### VD25H #### [facility] [address] [place] [address] Hemoglobin mass conc (Bld) 11.5 g/dL Low 13.0-18.0 [facility] Comment on above: Performed By: #### H EMDF, PT, BMP3M, PHOS3, MG3, CK3 #### [address] [place] #### VD25H #### [facility] [address] [place] [address] Lymphocytes #/vol (Bld) 0.6 10*3/uL Low 1.0-4.3 [facility] Comment on above: Performed By: #### H EMDF, PT, BMP3M, PHOS3, MG3, CK3 #### [address] [place] #### VD25H #### [facility] [address] [place] [address] Lymphocytes/100 WBC (Bld) 4.5 % Low 20.0-40.0 [facility] Comment on above: Performed By: #### H EMDF, PT, BMP3M, PHOS3, MG3, CK3 #### [address] [place] #### VD25H #### [facility] [address] [place] [address] MCH Entitic mass (RBC) 29.6 pg Normal 26.0-34.0 [facility] Comment on above: Performed By: #### H EMDF, PT, BMP3M, PHOS3, MG3, CK3 #### [address] #### VD25H #### [facility] [address] [place] [address] MCHC mass conc (RBC) 33.9 % Normal 32.0-36.0 [facility] Comment on above: Performed By: #### H EMDF, PT, BMP3M, PHOS3, MG3, CK3 #### [address] #### VD25H #### [facility] [address] [place] [address] MCV Entitic volume (RBC) 87.3 fL Normal 80.0-98.0 [facility] Comment on above: Performed By: #### H EMDF, PT, BMP3M, PHOS3, MG3, CK3 #### [address] #### VD25H #### [place] [address] [place] [address] Monocytes #/vol (Bld) 0.8 10*3/uL Normal 0.0-0.8 [facility] Comment on above: Performed By: #### H EMDF, PT, BMP3M, PHOS3, MG3, CK3 #### [address] #### VD25H #### [place] [address] [place] [address] Monocytes/100 WBC (Bld) 6.0 % Normal 2.0-10.0 [facility] Comment on above: Performed By: #### H EMDF, PT, BMP3M, PHOS3, MG3, CK3 #### [address] #### VD25H #### [facility] [address] [place] [address] Platelet mean volume Entitic volume (Bld) 8.1 fL Normal 7.4-10.4 [facility] Comment on above: Performed By: #### H EMDF, PT, BMP3M, PHOS3, MG3, CK3 #### [facility] [address] [place] #### VD25H #### [facility] [address] [place] [address] Platelets #/vol (Bld) 196 10*3/uL Normal 140-440 [facility] Comment on above: Performed By: #### H EMDF, PT, BMP3M, PHOS3, MG3, CK3 #### [address] [place] #### VD25H #### [facility] [address] [place] [address] RBC #/vol (Bld) 3.87 10*6/uL Low 4.40-5.90 [facility] Comment on above: Performed By: #### H EMDF, PT, BMP3M, PHOS3, MG3, CK3 #### [address] [place] #### VD25H #### [place] [address] [place] [address] WBC #/vol (Bld) 13.2 10*3/uL High 3.6-10.7 [facility] Comment on above: Performed By: #### H EMDF, PT, BMP3M, PHOS3, MG3, CK3 #### [address] [place] #### VD25H #### [facility] [address] [place] [address] Add on test from HISon 07-13 Add on test from [facility] Rejected Normal [facility] Comment on above: Result Comment: No s pecimen available for addon. Performed By: #### H EMDF, PT, BMP3M, PHOS3, MG3, CK3 #### [address] [place] #### VD25H #### [facility] [address] [place] [address] Arterial Blood Gaseson 07-13 CO2 molar conc 25.6 mmol/L Normal 23.0-27.0 [facility] Comment on above: Performed By: #### H EMDF, PT, BMP3M, PHOS3, MG3, CK3 #### [facility] [address] [place], [place] #### VD25H #### [facility] [address] [place] [address] HCO3 molar conc (Bld) 24.5 mmol/L Normal 21.0-25.0 [facility] Comment on above: Performed By: #### H EMDF, PT, BMP3M, PHOS3, MG3, CK3 #### [address] #### VD25H #### [place] [address] [facility] [place] [address] Hemoglobin mass conc (Bld) 9.7 g/dL Normal ScreenOnly [facility] Comment on above: Performed By: #### H EMDF, PT, BMP3M, PHOS3, MG3, CK3 #### [address] #### VD25H #### [facility] [address] [place] [address] Oxygen ppres (Bld) 99.9 mm[Hg] Normal 80.0-100.0 [facility] Comment on above: Performed By: #### H EMDF, PT, BMP3M, PHOS3, MG3, CK3 #### [address] #### VD25H #### [facility] [address] [place] [address] Oxygen saturation in Blood 97.5 % Normal 95.0-100.0 [facility] Comment on above: Performed By: #### H EMDF, PT, BMP3M, PHOS3, MG3, CK3 #### [address] #### VD25H #### [facility] [address] [place] [address] pCO2 36.0 mm[Hg] Normal 35.0-45.0 [facility] Comment on above: Performed By: #### H EMDF, PT, BMP3M, PHOS3, MG3, CK3 #### [address] [place], [place] #### VD25H #### [place] [address] [place] [address] pH (Bld) 7.450 Normal 7.350-7.450 [facility] Comment on above: Performed By: #### H EMDF, PT, BMP3M, PHOS3, MG3, CK3 #### [address] #### VD25H #### [place] [address] [place] [address] Std Base Excess 0.6 mmol/L Normal -3.0-3.[address] [facility] Comment on above: Performed By: #### H EMDF, PT, BMP3M, PHOS3, MG3, CK3 #### [address] #### VD25H #### [address] [place] [address] FIO2 .50 Normal [facility] Comment on above: Performed By: #### H EMDF, PT, BMP3M, PHOS3, MG3, CK3 #### [address] #### VD25H #### [place] [address] [place] [address] Basic Metabolic Panelon 06-29 Calcium mass conc 7.6 mg/dL Low 8.4-10.4 [facility] Comment on above: Performed By: #### H EMDF, PT, BMP3M, PHOS3, MG3, CK3 #### [address] #### VD25H #### [place] [address] [place] [address] Glucose mass conc 120 mg/dL High 70-100 [facility] Comment on above: Performed By: #### H EMDF, PT, BMP3M, PHOS3, MG3, CK3 #### [address] [place] [address] #### VD25H #### [facility] [address] [place] [address] Anion gap molar conc 7 Normal [facility] Comment on above: Performed By: #### H EMDF, PT, BMP3M, PHOS3, MG3, CK3 #### [address] #### VD25H #### [facility] [address] [place] [address] CO2 molar conc 27 mmol/L Normal 22-30 [facility] Comment on above: Performed By: #### H EMDF, PT, BMP3M, PHOS3, MG3, CK3 #### [address] #### VD25H #### [facility] [address] [place] [address] Creatinine mass conc 0.62 mg/dL Normal 0.52-1.25 [facility] Comment on above: Performed By: #### H EMDF, PT, BMP3M, PHOS3, MG3, CK3 #### [address] #### VD25H #### [facility] [address] [place] [address] GFR/1.73 sq M predicted among blacks MDRD vol rate/area (S/P/Bld) mL/min/{1.73_m2} Normal >60 [facility] Comment on above: Performed By: #### H EMDF, PT, BMP3M, PHOS3, MG3, CK3 #### [address] #### VD25H #### [facility] [address] [place] [address] GFR/1.73 sq M predicted among non-blacks MDRD vol rate/area (S/P/Bld) mL/min/{1.73_m2} Normal >60 [facility] Comment on above: Result Comment: Sour ce- MDRD equation with creatinine calibration to IDMS(NKDEP) eGFR not recommended for drug dose adjustment Performed By: #### H EMDF, PT, BMP3M, PHOS3, MG3, CK3 #### [facility] [address] [place], [place] #### VD25H #### [facility] [address] [place] [address] Urea nitrogen mass conc 17 mg/dL Normal 7-20 [facility] Comment on above: Performed By: #### H EMDF, PT, BMP3M, PHOS3, MG3, CK3 #### [address] #### VD25H #### [facility] [address] [place] [address] Chloride molar conc 105 mmol/L Normal 98-107 [facility] Comment on above: Performed By: #### H EMDF, PT, BMP3M, PHOS3, MG3, CK3 #### [address] #### VD25H #### [facility] [address] [place] [address] Potassium molar conc 3.8 mmol/L Normal 3.5-5.1 [facility] Comment on above: Performed By: #### H EMDF, PT, BMP3M, PHOS3, MG3, CK3 #### [address] #### VD25H #### [facility] [address] [place] [address] Sodium molar conc 139 mmol/L Normal 135-145 [facility] Comment on above: Performed By: #### H EMDF, PT, BMP3M, PHOS3, MG3, CK3 #### [address] [place] [address] #### VD25H #### [facility] [address] [place] [address] CR Chest Portableon 07-14-19 19 CR Chest Portable Patient Name: KATHYA HOOPER Diagnostic Radiology Exam Date/Time 07/13/2018 06:05:45 EDT Exam CR Chest Portable Ordering Physician MARIA EUGENIA PEREZ Accession Number [id number] CPT4 Codes 58567 () Reason For Exam ETT placement Report [...] Transcribed Date and Time: 07/13/2018 6:33 Normal [facility] Calcium,Ionizedon 07-13-2018 Ionized Ca,Measured 4.10 mg/dL Low 4.30-5.20 [facility] Comment on above: Performed By: #### H EMDF, PT, BMP3M, PHOS3, MG3, CK3 #### [facility] [employer] [facility] [address] [place] [address] #### VD25H #### [facility] [address] [place] [address] pH, Ionized Calcium 7.40 Normal 7.31-7.46 [facility] Comment on above: Performed By: #### H EMDF, PT, BMP3M, PHOS3, MG3, CK3 #### [address] #### VD25H #### [facility] [address] [place] [address] Hemogram w/ Autodiffon 07-13 Abs Baso Cnt 0.0 10*3/uL Normal 0.0-0.2 [facility] Comment on above: Performed By: #### H EMDF, PT, BMP3M, PHOS3, MG3, CK3 #### [address] #### VD25H #### [place] [address] [place] [address] Abs Neutrophile Cnt 11.2 10*3/uL High 1.8-7.0 [facility] Comment on above: Performed By: #### H EMDF, PT, BMP3M, PHOS3, MG3, CK3 #### [address] #### VD25H #### [facility] [address] [place] [address] Basophils/100 WBC (Bld) 0.3 % Normal 0.0-2.0 [facility] Comment on above: Performed By: #### H EMDF, PT, BMP3M, PHOS3, MG3, CK3 #### [address] #### VD25H #### [facility] [address] [place] [address] Eosinophils #/vol (Bld) 0.2 10*3/uL Normal 0.0-0.5 [facility] Comment on above: Performed By: #### H EMDF, PT, BMP3M, PHOS3, MG3, CK3 #### [address] #### VD25H #### [facility] [address] [place] [address] Eosinophils/100 WBC (Bld) 1.1 % Normal 1.0-6.0 [facility] Comment on above: Performed By: #### H EMDF, PT, BMP3M, PHOS3, MG3, CK3 #### [address] #### VD25H #### [facility] [address] [place] [address] Erythrocyte distribution width Ratio (RBC) 13.9 % Normal 11.5-14.5 [facility] Comment on above: Performed By: #### H EMDF, PT, BMP3M, PHOS3, MG3, CK3 #### [address] #### VD25H #### [facility] [address] [place] [address] Granulocytes/100 WBC (Bld) 82.2 % High 40.0-80.0 [facility] Comment on above: Performed By: #### H EMDF, PT, BMP3M, PHOS3, MG3, CK3 #### [address] #### VD25H #### [facility] [address] [place] [address] Hematocrit Volume Fraction (Bld) 36.7 % Low 40.0-52.0 [facility] Comment on above: Performed By: #### H EMDF, PT, BMP3M, PHOS3, MG3, CK3 #### [address] #### VD25H #### [facility] [address] [place] [address] Hemoglobin mass conc (Bld) 12.6 g/dL Low 13.0-18.0 [facility] Comment on above: Performed By: #### H EMDF, PT, BMP3M, PHOS3, MG3, CK3 #### [address] #### VD25H #### [facility] [address] [place] [address] Lymphocytes #/vol (Bld) 1.1 10*3/uL Normal 1.0-4.3 [facility] Comment on above: Performed By: #### H EMDF, PT, BMP3M, PHOS3, MG3, CK3 #### [address] #### VD25H #### [facility] [address] [place] [address] Lymphocytes/100 WBC (Bld) 8.2 % Low 20.0-40.0 [facility] Comment on above: Performed By: #### H EMDF, PT, BMP3M, PHOS3, MG3, CK3 #### [address] #### VD25H #### [place] [address] [place] [address] MCH Entitic mass (RBC) 29.6 pg Normal 26.0-34.0 [facility] Comment on above: Performed By: #### H EMDF, PT, BMP3M, PHOS3, MG3, CK3 #### [address] #### VD25H #### [place] [address] [place] [address] MCHC mass conc (RBC) 34.4 % Normal 32.0-36.0 [facility] Comment on above: Performed By: #### H EMDF, PT, BMP3M, PHOS3, MG3, CK3 #### [address] #### VD25H #### [place] [address] [place] [address] MCV Entitic volume (RBC) 86.2 fL Normal 80.0-98.0 [facility] Comment on above: Performed By: #### H EMDF, PT, BMP3M, PHOS3, MG3, CK3 #### [address] #### VD25H #### [facility] [address] [place] [address] Monocytes #/vol (Bld) 1.1 10*3/uL High 0.0-0.8 [facility] Comment on above: Performed By: #### H EMDF, PT, BMP3M, PHOS3, MG3, CK3 #### [address] [place], [place] #### VD25H #### [facility] [address] [place] [address] Monocytes/100 WBC (Bld) 8.2 % Normal 2.0-10.0 [facility] Comment on above: Performed By: #### H EMDF, PT, BMP3M, PHOS3, MG3, CK3 #### [address] #### VD25H #### [facility] [address] [place] [address] Platelet mean volume Entitic volume (Bld) 8.1 fL Normal 7.4-10.4 [facility] Comment on above: Performed By: #### H EMDF, PT, BMP3M, PHOS3, MG3, CK3 #### [address] #### VD25H #### [facility] [address] [place] [address] Platelets #/vol (Bld) 194 10*3/uL Normal 140-440 [facility] Comment on above: Performed By: #### H EMDF, PT, BMP3M, PHOS3, MG3, CK3 #### [address] #### VD25H #### [facility] [address] [place] [address] RBC #/vol (Bld) 4.26 10*6/uL Low 4.40-5.90 [facility] Comment on above: Performed By: #### H EMDF, PT, BMP3M, PHOS3, MG3, CK3 #### [address] #### VD25H #### [facility] [address] [place] [address] WBC #/vol (Bld) 13.7 10*3/uL High 3.6-10.7 [facility] Comment on above: Performed By: #### H EMDF, PT, BMP3M, PHOS3, MG3, CK3 #### [address] #### VD25H #### [place] [address] [place] [address] Arterial Blood Gaseson 07-12 CO2 molar conc 26.4 mmol/L Normal 23.0-27.0 [facility] Comment on above: Performed By: #### H EMDF, PT, BMP3M, PHOS3, MG3, CK3 #### [address] #### VD25H #### [facility] [address] [place] [address] HCO3 molar conc (Bld) 25.2 mmol/L High 21.0-25.0 [facility] Comment on above: Performed By: #### H EMDF, PT, BMP3M, PHOS3, MG3, CK3 #### [address] #### VD25H #### [facility] [address] [place] [address] Hemoglobin mass conc (Bld) 13.9 g/dL Normal ScreenOnly [facility] Comment on above: Performed By: #### H EMDF, PT, BMP3M, PHOS3, MG3, CK3 #### [address] #### VD25H #### [place] [address] [place] [address] Oxygen ppres (Bld) 83.9 mm[Hg] Normal 80.0-100.0 [facility] Comment on above: Performed By: #### H EMDF, PT, BMP3M, PHOS3, MG3, CK3 #### [place] [address] [place], [place] #### VD25H #### [facility] [address] [place] [address] Oxygen saturation in Blood 96.3 % Normal 95.0-100.0 [facility] Comment on above: Performed By: #### H EMDF, PT, BMP3M, PHOS3, MG3, CK3 #### [address] #### VD25H #### [facility] [address] [place] [address] pCO2 38.2 mm[Hg] Normal 35.0-45.0 [facility] Comment on above: Performed By: #### H EMDF, PT, BMP3M, PHOS3, MG3, CK3 #### [address] #### VD25H #### [facility] [address] [place] [address] pH (Bld) 7.437 Normal 7.350-7.450 [facility] Comment on above: Performed By: #### H EMDF, PT, BMP3M, PHOS3, MG3, CK3 #### [address] #### VD25H #### [facility] [address] [place] [address] Std Base Excess 1.1 mmol/L Normal -3.0-3.0 [facility] Comment on above: Performed By: #### H EMDF, PT, BMP3M, PHOS3, MG3, CK3 #### [address] #### VD25H #### [facility] [address] [place] [address] FIO2 50% Normal [facility] Comment on above: Performed By: #### H EMDF, PT, BMP3M, PHOS3, MG3, CK3 #### [place] [address] [place] #### VD25H #### [facility] [address] [place] [address] CO2 molar conc 27.2 mmol/L High 23.0-27.0 [facility] Comment on above: Performed By: #### H EMDF, PT, BMP3M, PHOS3, MG3, CK3 #### [place] [address] [place] #### VD25H #### [facility] [address] [place] [address] HCO3 molar conc (Bld) 26.1 mmol/L High 21.0-25.0 [facility] Comment on above: Performed By: #### H EMDF, PT, BMP3M, PHOS3, MG3, CK3 #### [place] [address] [place] #### VD25H #### [facility] [address] [place] [address] Hemoglobin mass conc (Bld) 14.7 g/dL Normal [facility]Only [facility] Comment on above: Performed By: #### H EMDF, PT, BMP3M, PHOS3, MG3, CK3 #### [place] [address] [place] #### VD25H #### [facility] [address] [place] [address] Oxygen ppres (Bld) 125.7 mm[Hg] High 80.0-100.0 [facility] Comment on above: Performed By: #### H EMDF, PT, BMP3M, PHOS3, MG3, CK3 #### [address] [place] #### VD25H #### [facility] [address] [place] [address] Oxygen saturation in Blood 98.6 % Normal 95.0-100.0 [facility] Comment on above: Performed By: #### H EMDF, PT, BMP3M, PHOS3, MG3, CK3 #### [place] [address] [place] #### VD25H #### [facility] [address] [place] [address] pCO2 37.5 mm[Hg] Normal 35.0-45.0 [facility] Comment on above: Performed By: #### H EMDF, PT, BMP3M, PHOS3, MG3, CK3 #### [place] [address] [place] #### VD25H #### [facility] [address] [place] [address] pH (Bld) 7.460 High 7.350-7.450 [facility] Comment on above: Performed By: #### H EMDF, PT, BMP3M, PHOS3, MG3, CK3 #### [place] [address] [place] #### VD25H #### [facility] [address] [place] [address] Std Base Excess 2.4 mmol/L Normal -3.0-3.0 [facility] Comment on above: Performed By: #### H EMDF, PT, BMP3M, PHOS3, MG3, CK3 #### [place] [address] [place], [place] #### VD25H #### [facility] [address] [place] [address] FIO2 62.5 Normal [facility] Comment on above: Performed By: #### H EMDF, PT, BMP3M, PHOS3, MG3, CK3 #### [place] [address] [place] #### VD25H #### [facility] [address] [place] [address] Basic Metabolic Panelon 06-29 Anion gap molar conc 6 Normal [facility] Comment on above: Performed By: #### H EMDF, PT, BMP3M, PHOS3, MG3, CK3 #### [address] #### VD25H #### [facility] [address] [place] [address] Calcium mass conc 8.0 mg/dL Low 8.4-10.4 [facility] Comment on above: Performed By: #### H EMDF, PT, BMP3M, PHOS3, MG3, CK3 #### [address] [place], [place] #### VD25H #### [facility] [address] [place] [address] CO2 molar conc 28 mmol/L Normal 22-30 [facility] Comment on above: Performed By: #### H EMDF, PT, BMP3M, PHOS3, MG3, CK3 #### [address] #### VD25H #### [facility] [address] [place] [address] Creatinine mass conc 0.62 mg/dL Normal 0.52-1.25 [facility] Comment on above: Performed By: #### H EMDF, PT, BMP3M, PHOS3, MG3, CK3 #### [address] #### VD25H #### [facility] [address] [place] [address] GFR/1.73 sq M predicted among blacks MDRD vol rate/area (S/P/Bld) mL/min/{1.73_m2} Normal >60 [facility] Comment on above: Performed By: #### H EMDF, PT, BMP3M, PHOS3, MG3, CK3 #### [address] #### VD25H #### [facility] [address] [place] [address] GFR/1.73 sq M predicted among non-blacks MDRD vol rate/area (S/P/Bld) mL/min/{1.73_m2} Normal >60 [facility] Comment on above: Result Comment: Sour ce- MDRD equation with creatinine calibration to IDMS(NKDEP) eGFR not recommended for drug dose adjustment Performed By: #### H EMDF, PT, BMP3M, PHOS3, MG3, CK3 #### [facility] [address] [place], [place] #### VD25H #### [facility] [address] [place] [address] Glucose mass conc 125 mg/dL High 70-100 [facility] Comment on above: Performed By: #### H EMDF, PT, BMP3M, PHOS3, MG3, CK3 #### [address] [place] #### VD25H #### [facility] [address] [place] [address] Urea nitrogen mass conc 12 mg/dL Normal 7-20 [facility] Comment on above: Performed By: #### H EMDF, PT, BMP3M, PHOS3, MG3, CK3 #### [place] [address] [place] #### VD25H #### [facility] [address] [place] [address] Chloride molar conc 104 mmol/L Normal 98-107 [facility] Comment on above: Performed By: #### H EMDF, PT, BMP3M, PHOS3, MG3, CK3 #### [place] [address] [place] #### VD25H #### [facility] [address] [place] [address] Potassium molar conc 3.6 mmol/L Normal 3.5-5.1 [facility] Comment on above: Performed By: #### H EMDF, PT, BMP3M, PHOS3, MG3, CK3 #### [place] [address] [place] #### VD25H #### [facility] [address] [place] [address] Sodium molar conc 138 mmol/L Normal 135-145 [facility] [employer] [facility] Comment on above: Performed By: #### H EMDF, PT, BMP3M, PHOS3, MG3, CK3 #### [facility] [employer] [facility] [address] [place] [address] #### VD25H #### [facility] [employer] [facility] [address] [place] [address] CR Chest Portableon 07-13-19 19 CR Chest Portable Patient Name: KATHYA HOOPER Diagnostic Radiology Exam Date/Time 07/12/2018 10:18:11 EDT Exam CR Chest Portable Ordering Physician MARIA EUGENIA PEREZ Accession Number [id number] CPT4 Codes 94509 () Reason For Exam ETT Placement Report [...] Transcribed Date and Time: 07/12/2018 1:21 Normal [facility] CR Chest Portable Patient Name: KATHYA HOOPER Diagnostic Radiology Exam Date/Time 07/12/2018 06:19:03 EDT Exam CR Chest Portable Ordering Physician MD NATE, NICOLE LEYDI Accession Number [id number] CPT4 Codes 21758 () Reason For Exam dyspnea Report PORTABLE [...] Transcribed Date and Time: 07/12/2018 8:01 Normal [facility] [employer] [facility] Hemogram w/ Autodiffon 07-12 Abs Baso Cnt 0.0 10*3/uL Normal 0.0-0.2 [facility] [employer] [facility] Comment on above: Performed By: #### H EMDF, PT, BMP3M, PHOS3, MG3, CK3 #### [facility] [place] [address] [place] [address] #### VD25H #### [facility] [address] [place] [address] Abs Neutrophile Cnt 10.2 10*3/uL High 1.8-7.0 [facility] Comment on above: Performed By: #### H EMDF, PT, BMP3M, PHOS3, MG3, CK3 #### [facility] [address] [place] #### VD25H #### [facility] [address] [place] [address] Basophils/100 WBC (Bld) 0.4 % Normal 0.0-2.0 [facility] Comment on above: Performed By: #### H EMDF, PT, BMP3M, PHOS3, MG3, CK3 #### [address] #### VD25H #### [facility] [address] [place] [address] Eosinophils #/vol (Bld) 0.1 10*3/uL Normal 0.0-0.5 [facility] Comment on above: Performed By: #### H EMDF, PT, BMP3M, PHOS3, MG3, CK3 #### [address] #### VD25H #### [facility] [address] [place] [address] Eosinophils/100 WBC (Bld) 0.6 % Low 1.0-6.0 [facility] Comment on above: Performed By: #### H EMDF, PT, BMP3M, PHOS3, MG3, CK3 #### [address] [place], [place] #### VD25H #### [facility] [address] [place] [address] Erythrocyte distribution width Ratio (RBC) 13.5 % Normal 11.5-14.5 [facility] Comment on above: Performed By: #### H EMDF, PT, BMP3M, PHOS3, MG3, CK3 #### [address] #### VD25H #### [facility] [address] [place] [address] Granulocytes/100 WBC (Bld) 84.7 % High 40.0-80.0 [facility] Comment on above: Performed By: #### H EMDF, PT, BMP3M, PHOS3, MG3, CK3 #### [facility] [address] [place], [place] #### VD25H #### [facility] [address] [place] [address] Hematocrit Volume Fraction (Bld) 39.7 % Low 40.0-52.0 [facility] Comment on above: Performed By: #### H EMDF, PT, BMP3M, PHOS3, MG3, CK3 #### [address] #### VD25H #### [facility] [address] [place] [address] Hemoglobin mass conc (Bld) 13.5 g/dL Normal 13.0-18.0 [facility] Comment on above: Performed By: #### H EMDF, PT, BMP3M, PHOS3, MG3, CK3 #### [facility] [address] [place], [place] #### VD25H #### [facility] [address] [place] [address] Lymphocytes #/vol (Bld) 0.9 10*3/uL Low 1.0-4.3 [facility] Comment on above: Performed By: #### H EMDF, PT, BMP3M, PHOS3, MG3, CK3 #### [address] #### VD25H #### [facility] [address] [place] [address] Lymphocytes/100 WBC (Bld) 7.6 % Low 20.0-40.0 [facility] Comment on above: Performed By: #### H EMDF, PT, BMP3M, PHOS3, MG3, CK3 #### [address] #### VD25H #### [facility] [address] [place] [address] MCH Entitic mass (RBC) 29.6 pg Normal 26.0-34.0 [facility] Comment on above: Performed By: #### H EMDF, PT, BMP3M, PHOS3, MG3, CK3 #### [address] #### VD25H #### [facility] [address] [place] [address] MCHC mass conc (RBC) 34.1 % Normal 32.0-36.0 [facility] Comment on above: Performed By: #### H EMDF, PT, BMP3M, PHOS3, MG3, CK3 #### [address] #### VD25H #### [place] [address] [place] [address] MCV Entitic volume (RBC) 87.0 fL Normal 80.0-98.0 [facility] Comment on above: Performed By: #### H EMDF, PT, BMP3M, PHOS3, MG3, CK3 #### [address] #### VD25H #### [place] [address] [place] [address] Monocytes #/vol (Bld) 0.8 10*3/uL Normal 0.0-0.8 [facility] Comment on above: Performed By: #### H EMDF, PT, BMP3M, PHOS3, MG3, CK3 #### [address] #### VD25H #### [place] [address] [place] [address] Monocytes/100 WBC (Bld) 6.7 % Normal 2.0-10.0 [facility] Comment on above: Performed By: #### H EMDF, PT, BMP3M, PHOS3, MG3, CK3 #### [address] #### VD25H #### [facility] [address] [place] [address] Platelet mean volume Entitic volume (Bld) 8.4 fL Normal 7.4-10.4 [facility] Comment on above: Performed By: #### H EMDF, PT, BMP3M, PHOS3, MG3, CK3 #### [place] [address] [place], [place] #### VD25H #### [facility] [address] [place] [address] Platelets #/vol (Bld) 185 10*3/uL Normal 140-440 [facility] Comment on above: Performed By: #### H EMDF, PT, BMP3M, PHOS3, MG3, CK3 #### [address] #### VD25H #### [place] [address] [facility] [address] RBC #/vol (Bld) 4.57 10*6/uL Normal 4.40-5.90 [facility] Comment on above: Performed By: #### H EMDF, PT, BMP3M, PHOS3, MG3, CK3 #### [address] #### VD25H #### [place] [address] [place] [address] WBC #/vol (Bld) 12.1 10*3/uL High 3.6-10.7 [facility] Comment on above: Performed By: #### H EMDF, PT, BMP3M, PHOS3, MG3, CK3 #### [address] [place], [place] #### VD25H #### [place] [address] [place] [address] VL Venous Duplex US Lower Ex t Bilateralon 07-12-2018 VL Venous Duplex US Lower Ext Bilateral Patient Name: KATHYA OHOPER Ultrasound Exam Date/Time 07/12/2018 17:20:46 EDT Exam VL Venous Duplex US Lower Ext Bilateral Ordering Physician MD AVELAR ADAM Accession Number [id number] CPT4 Codes 39253 () Reason For Exam leg swelling Report [facility] --- Lower Extremity Venous Duplex Report Patient Name: Kathya Hooper : 1955 Study Date: 07/12/2018 W (63yrs) Age: 63 Account: [id number] Gender: M Loc: [id number] BP: Ordering: Joshua Avelar Technologist: Ordering Physician: Joshua Avelar Member Of Parliament: Elizabeth Sanford RVT Interpreting Physician: Krysta Arora --- Location: [facility] --- INDICATIONS: Edema. bilateral calves. [...] performed. The images were obtained using a [employer] E9 vascular ultrasound machine. --- VENOUS FLOW [...] ---------+-------+--- --+ Electronically signed by: Krysta Arora [id number] Final Dictated: 07/13/2018 8:45 am Dictating Physician: KRYSTA ARORA Signed Date and Time: 07/13/2018 8:45 am Signed by: KRYSTA ARORA Normal [facility] [employer] Basic Metabolic Panelon 06-29 Calcium mass conc 7.8 mg/dL Low 8.4-10.4 [facility] Comment on above: Performed By: #### H EMDF, PT, BMP3M, PHOS3, MG3, CK3 #### [employer] [address] [place] [address] #### VD25H #### [employer] [address] [place] [address] Anion gap molar conc 4 Normal [facility] [employer] [facility] Comment on above: Performed By: #### H EMDF, PT, BMP3M, PHOS3, MG3, CK3 #### [employer] [address] [place] [address] #### VD25H #### [facility] [address] [place] [address] CO2 molar conc 26 mmol/L Normal 22-30 [facility] Comment on above: Performed By: #### H EMDF, PT, BMP3M, PHOS3, MG3, CK3 #### [facility] [address] [place], [place] #### VD25H #### [facility] [address] [place] [address] Glucose mass conc 118 mg/dL High 70-100 [facility] Comment on above: Performed By: #### H EMDF, PT, BMP3M, PHOS3, MG3, CK3 #### [address] #### VD25H #### [place] [address] [place] [address] Urea nitrogen mass conc 19 mg/dL Normal 7-20 [facility] Comment on above: Performed By: #### H EMDF, PT, BMP3M, PHOS3, MG3, CK3 #### [address] #### VD25H #### [facility] [address] [place] [address] Creatinine mass conc 0.74 mg/dL Normal 0.52-1.25 [facility] Comment on above: Performed By: #### H EMDF, PT, BMP3M, PHOS3, MG3, CK3 #### [address] #### VD25H #### [facility] [address] [place] [address] GFR/1.73 sq M predicted among blacks MDRD vol rate/area (S/P/Bld) mL/min/{1.73_m2} Normal >60 [facility] Comment on above: Performed By: #### H EMDF, PT, BMP3M, PHOS3, MG3, CK3 #### [address] #### VD25H #### [facility] [address] [place] [address] GFR/1.73 sq M predicted among non-blacks MDRD vol rate/area (S/P/Bld) mL/min/{1.73_m2} Normal >60 [facility] Comment on above: Result Comment: Sour ce- MDRD equation with creatinine calibration to IDMS(NKDEP) eGFR not recommended for drug dose adjustment Performed By: #### H EMDF, PT, BMP3M, PHOS3, MG3, CK3 #### [address] [address] #### VD25H #### [facility] [address] [place] [address] Chloride molar conc 112 mmol/L High 98-107 [facility] Comment on above: Performed By: #### H EMDF, PT, BMP3M, PHOS3, MG3, CK3 #### [address] #### VD25H #### [facility] [address] [place] [address] Potassium molar conc 3.8 mmol/L Normal 3.5-5.1 [facility] Comment on above: Performed By: #### H EMDF, PT, BMP3M, PHOS3, MG3, CK3 #### [address] #### VD25H #### [facility] [address] [place] [address] Sodium molar conc 141 mmol/L Normal 135-145 [facility] Comment on above: Performed By: #### H EMDF, PT, BMP3M, PHOS3, MG3, CK3 #### [address] #### VD25H #### [place] [address] [place] [address] CR Chest 1 View Frontalon CR Chest 1 View Frontal Patient Name: KATHYA FELDER Diagnostic Radiology Exam Date/Time 07/11/2018 06:36:48 EDT Exam CR Chest 1 View Frontal Ordering Physician MD AVELAR ADAM Accession Number [id number] CPT4 Codes 54655 () Reason For Exam dyspnea Report EXAM [...] Transcribed Date and Time: 07/11/2018 7:05 Normal [facility] Hemogram w/ Autodiffon 07-11 Abs Baso Cnt 0.0 10*3/uL Normal 0.0-0.2 [facility] Comment on above: Performed By: #### H EMDF, PT, BMP3M, PHOS3, MG3, CK3 #### [facility] [address] [place] [address] #### VD25H #### [facility] [address] [place] [address] Abs Neutrophile Cnt 8.8 10*3/uL High 1.8-7.0 [facility] Comment on above: Performed By: #### H EMDF, PT, BMP3M, PHOS3, MG3, CK3 #### [facility] [address] [place], [place] #### VD25H #### [facility] [address] [place] [address] Basophils/100 WBC (Bld) 0.4 % Normal 0.0-2.0 [facility] Comment on above: Performed By: #### H EMDF, PT, BMP3M, PHOS3, MG3, CK3 #### [facility] [address] [place], [place] #### VD25H #### [facility] [address] [place] [address] Eosinophils #/vol (Bld) 0.0 10*3/uL Normal 0.0-0.5 [facility] Comment on above: Performed By: #### H EMDF, PT, BMP3M, PHOS3, MG3, CK3 #### [address] #### VD25H #### [facility] [address] [place] [address] Eosinophils/100 WBC (Bld) 0.4 % Low 1.0-6.0 [facility] Comment on above: Performed By: #### H EMDF, PT, BMP3M, PHOS3, MG3, CK3 #### [address] #### VD25H #### [facility] [address] [place] [address] Erythrocyte distribution width Ratio (RBC) 13.7 % Normal 11.5-14.5 [facility] Comment on above: Performed By: #### H EMDF, PT, BMP3M, PHOS3, MG3, CK3 #### [address] #### VD25H #### [facility] [address] [place] [address] Granulocytes/100 WBC (Bld) 80.6 % High 40.0-80.0 [facility] Comment on above: Performed By: #### H EMDF, PT, BMP3M, PHOS3, MG3, CK3 #### [address] [place], [place] #### VD25H #### [facility] [address] [place] [address] Hematocrit Volume Fraction (Bld) 32.8 % Low 40.0-52.0 [facility] Comment on above: Performed By: #### H EMDF, PT, BMP3M, PHOS3, MG3, CK3 #### [place] [address] [place], [place] #### VD25H #### [facility] [address] [place] [address] Hemoglobin mass conc (Bld) 11.4 g/dL Low 13.0-18.0 [facility] Comment on above: Performed By: #### H EMDF, PT, BMP3M, PHOS3, MG3, CK3 #### [address] #### VD25H #### [facility] [address] [place] [address] Lymphocytes #/vol (Bld) 1.3 10*3/uL Normal 1.0-4.3 [facility] Comment on above: Performed By: #### H EMDF, PT, BMP3M, PHOS3, MG3, CK3 #### [address] #### VD25H #### [facility] [address] [place] [address] Lymphocytes/100 WBC (Bld) 11.5 % Low 20.0-40.0 [facility] Comment on above: Performed By: #### H EMDF, PT, BMP3M, PHOS3, MG3, CK3 #### [address] #### VD25H #### [place] [address] [place] [address] MCH Entitic mass (RBC) 30.2 pg Normal 26.0-34.0 [facility] Comment on above: Performed By: #### H EMDF, PT, BMP3M, PHOS3, MG3, CK3 #### [address] #### VD25H #### [facility] [address] [place] [address] MCHC mass conc (RBC) 34.7 % Normal 32.0-36.0 [facility] Comment on above: Performed By: #### H EMDF, PT, BMP3M, PHOS3, MG3, CK3 #### [address] #### VD25H #### [facility] [address] [place] [address] MCV Entitic volume (RBC) 86.9 fL Normal 80.0-98.0 [facility] Comment on above: Performed By: #### H EMDF, PT, BMP3M, PHOS3, MG3, CK3 #### [address] #### VD25H #### [facility] [address] [place] [address] Monocytes #/vol (Bld) 0.8 10*3/uL Normal 0.0-0.8 [facility] Comment on above: Performed By: #### H EMDF, PT, BMP3M, PHOS3, MG3, CK3 #### [address] #### VD25H #### [facility] [address] [place] [address] Monocytes/100 WBC (Bld) 7.1 % Normal 2.0-10.0 [facility] Comment on above: Performed By: #### H EMDF, PT, BMP3M, PHOS3, MG3, CK3 #### [address] #### VD25H #### [facility] [address] [place] [address] Platelet mean volume Entitic volume (Bld) 8.8 fL Normal 7.4-10.4 [facility] Comment on above: Performed By: #### H EMDF, PT, BMP3M, PHOS3, MG3, CK3 #### [facility] [address] [place], [place] #### VD25H #### [facility] [address] [place] [address] Platelets #/vol (Bld) 158 10*3/uL Normal 140-440 [facility] Comment on above: Performed By: #### H EMDF, PT, BMP3M, PHOS3, MG3, CK3 #### [address] #### VD25H #### [facility] [address] [place] [address] RBC #/vol (Bld) 3.78 10*6/uL Low 4.40-5.90 [facility] Comment on above: Performed By: #### H EMDF, PT, BMP3M, PHOS3, MG3, CK3 #### [address] #### VD25H #### [facility] [address] [place] [address] WBC #/vol (Bld) 10.9 10*3/uL High 3.6-10.7 [facility] Comment on above: Performed By: #### H EMDF, PT, BMP3M, PHOS3, MG3, CK3 #### [facility] [address] [place], [place] #### VD25H #### [facility] [address] [place] [address] Magnesiumon 07-11-2018 Magnesium mass conc 2.3 mg/dL Normal 1.6-2.3 [facility] Comment on above: Performed By: #### H EMDF, PT, BMP3M, PHOS3, MG3, CK3 #### [address] #### VD25H #### [facility] [address] [place] [address] Phosphoruson 07-11-2018 Phosphate mass conc 2.8 mg/dL Normal 2.5-4.5 [facility] Comment on above: Performed By: #### H EMDF, PT, BMP3M, PHOS3, MG3, CK3 #### [facility] [address] [place], [place] #### VD25H #### [facility] [address] [place] [address] Basic Metabolic Panelon 06-29 Calcium mass conc 8.9 mg/dL Normal 8.4-10.4 [facility] Comment on above: Performed By: #### H EMDF, PT, BMP3M, PHOS3, MG3, CK3 #### [place] [address] [place], [place] #### VD25H #### [place] [address] [place] [address] Glucose mass conc 133 mg/dL High 70-100 [facility] Comment on above: Performed By: #### H EMDF, PT, BMP3M, PHOS3, MG3, CK3 #### [address], [place] #### VD25H #### [facility] [address] [place] [address] Anion gap molar conc 4 Normal [facility] Comment on above: Performed By: #### H EMDF, PT, BMP3M, PHOS3, MG3, CK3 #### [place] [address] [facility], [place] #### VD25H #### [facility] [address] [place] [address] CO2 molar conc 27 mmol/L Normal 22-30 [facility] Comment on above: Performed By: #### H EMDF, PT, BMP3M, PHOS3, MG3, CK3 #### [place] [address] [place], [place] #### VD25H #### [facility] [address] [place] [address] Creatinine mass conc 0.69 mg/dL Normal 0.52-1.25 [facility] Comment on above: Performed By: #### H EMDF, PT, BMP3M, PHOS3, MG3, CK3 #### [address] #### VD25H #### [facility] [address] [place] [address] GFR/1.73 sq M predicted among blacks MDRD vol rate/area (S/P/Bld) mL/min/{1.73_m2} Normal >60 [facility] Comment on above: Performed By: #### H EMDF, PT, BMP3M, PHOS3, MG3, CK3 #### [address] #### VD25H #### [facility] [address] [place] [address] GFR/1.73 sq M predicted among non-blacks MDRD vol rate/area (S/P/Bld) mL/min/{1.73_m2} Normal >60 [facility] Comment on above: Result Comment: Sour ce- MDRD equation with creatinine calibration to IDMS(NKDEP) eGFR not recommended for drug dose adjustment Performed By: #### H EMDF, PT, BMP3M, PHOS3, MG3, CK3 #### [address] #### VD25H #### [facility] [address] [place] [address] Urea nitrogen mass conc 16 mg/dL Normal 7-20 [facility] Comment on above: Performed By: #### H EMDF, PT, BMP3M, PHOS3, MG3, CK3 #### [address] #### VD25H #### [facility] [address] [place] [address] Potassium molar conc 4.1 mmol/L Normal 3.5-5.1 [facility] Comment on above: Performed By: #### H EMDF, PT, BMP3M, PHOS3, MG3, CK3 #### [place] [address] [place], [place] #### VD25H #### [facility] [address] [place] [address] Sodium molar conc 142 mmol/L Normal 135-145 [facility] Comment on above: Performed By: #### H EMDF, PT, BMP3M, PHOS3, MG3, CK3 #### [place] [address] [place], [place] #### VD25H #### [facility] [address] [place] [address] Chloride molar conc 110 mmol/L High 98-107 [facility] Comment on above: Performed By: #### H EMDF, PT, BMP3M, PHOS3, MG3, CK3 #### [place] [address] [place], [place] #### VD25H #### [facility] [address] [place] [address] CKon 07-10-2018 CK enzyme act/vol 1291 U/L High 30-170 [facility] Comment on above: Performed By: #### H EMDF, PT, BMP3M, PHOS3, MG3, CK3 #### [place] [address] [place], [place] #### VD25H #### [facility] [address] [place] [address] CK enzyme act/vol 1382 U/L High 30-170 [facility] Comment on above: Performed By: #### H EMDF, PT, BMP3M, PHOS3, MG3, CK3 #### [place] [address] [place], [place] #### VD25H #### [facility] [address] [place] [address] CR Chest 1 View Frontalon CR Chest 1 View Frontal Patient Name: KATHYA FELDER [facility]: [id number] Diagnostic Radiology Exam Date/Time 07/10/2018 06:38:06 EDT Exam CR Chest 1 View Frontal Ordering Physician MD NATE[facility] Accession Number [id number] CPT4 Codes 84762 () Reason For Exam dyspnea Report EXAMINATION: [...] Transcribed Date and Time: 07/10/2018 8:57 Normal [facility] Hemogram w/ Autodiffon 07-10 Abs Baso Cnt 0.0 10*3/uL Normal 0.0-0.2 [facility] Comment on above: Performed By: #### H EMDF, PT, BMP3M, PHOS3, MG3, CK3 #### [facility] [address] [place] [address] #### VD25H #### [facility] [address] [place] [address] Abs Neutrophile Cnt 12.2 10*3/uL High 1.8-7.0 [facility] Comment on above: Performed By: #### H EMDF, PT, BMP3M, PHOS3, MG3, CK3 #### [facility] [address] [place], [place] #### VD25H #### [facility] [address] [place] [address] Basophils/100 WBC (Bld) 0.3 % Normal 0.0-2.0 [facility] Comment on above: Performed By: #### H EMDF, PT, BMP3M, PHOS3, MG3, CK3 #### [place] [address] [place] #### VD25H #### [facility] [address] [place] [address] Eosinophils #/vol (Bld) 0.0 10*3/uL Normal 0.0-0.5 [facility] Comment on above: Performed By: #### H EMDF, PT, BMP3M, PHOS3, MG3, CK3 #### [address] #### VD25H #### [facility] [address] [place] [address] Eosinophils/100 WBC (Bld) 0.0 % Low 1.0-6.0 [facility] Comment on above: Performed By: #### H EMDF, PT, BMP3M, PHOS3, MG3, CK3 #### [address] #### VD25H #### [facility] [address] [place] [address] Erythrocyte distribution width Ratio (RBC) 13.9 % Normal 11.5-14.5 [facility] Comment on above: Performed By: #### H EMDF, PT, BMP3M, PHOS3, MG3, CK3 #### [address] #### VD25H #### [facility] [address] [place] [address] Granulocytes/100 WBC (Bld) 89.5 % High 40.0-80.0 [facility] Comment on above: Performed By: #### H EMDF, PT, BMP3M, PHOS3, MG3, CK3 #### [address] [place], [place] #### VD25H #### [facility] [address] [place] [address] Hematocrit Volume Fraction (Bld) 36.0 % Low 40.0-52.0 [facility] Comment on above: Performed By: #### H EMDF, PT, BMP3M, PHOS3, MG3, CK3 #### [address] [place] #### VD25H #### [facility] [address] [place] [address] Hemoglobin mass conc (Bld) 12.3 g/dL Low 13.0-18.0 [facility] Comment on above: Performed By: #### H EMDF, PT, BMP3M, PHOS3, MG3, CK3 #### [address] #### VD25H #### [facility] [address] [place] [address] Lymphocytes #/vol (Bld) 0.6 10*3/uL Low 1.0-4.3 [facility] Comment on above: Performed By: #### H EMDF, PT, BMP3M, PHOS3, MG3, CK3 #### [address] #### VD25H #### [facility] [address] [place] [address] Lymphocytes/100 WBC (Bld) 4.3 % Low 20.0-40.0 [facility] Comment on above: Performed By: #### H EMDF, PT, BMP3M, PHOS3, MG3, CK3 #### [address] #### VD25H #### [facility] [address] [place] [address] MCH Entitic mass (RBC) 29.8 pg Normal 26.0-34.0 [facility] Comment on above: Performed By: #### H EMDF, PT, BMP3M, PHOS3, MG3, CK3 #### [address] #### VD25H #### [facility] [address] [place] [address] MCHC mass conc (RBC) 34.2 % Normal 32.0-36.0 [facility] Comment on above: Performed By: #### H EMDF, PT, BMP3M, PHOS3, MG3, CK3 #### [address] #### VD25H #### [facility] [address] [place] [address] MCV Entitic volume (RBC) 87.1 fL Normal 80.0-98.0 [facility] Comment on above: Performed By: #### H EMDF, PT, BMP3M, PHOS3, MG3, CK3 #### [address] #### VD25H #### [facility] [address] [place] [address] Monocytes #/vol (Bld) 0.8 10*3/uL Normal 0.0-0.8 [facility] Comment on above: Performed By: #### H EMDF, PT, BMP3M, PHOS3, MG3, CK3 #### [address] #### VD25H #### [facility] [address] [place] [address] Monocytes/100 WBC (Bld) 5.9 % Normal 2.0-10.0 [facility] Comment on above: Performed By: #### H EMDF, PT, BMP3M, PHOS3, MG3, CK3 #### [address] #### VD25H #### [facility] [address] [place] [address] Platelet mean volume Entitic volume (Bld) 8.4 fL Normal 7.4-10.4 [facility] Comment on above: Performed By: #### H EMDF, PT, BMP3M, PHOS3, MG3, CK3 #### [facility] [address] [place], [place] #### VD25H #### [facility] [address] [place] [address] Platelets #/vol (Bld) 155 10*3/uL Normal 140-440 [facility] Comment on above: Performed By: #### H EMDF, PT, BMP3M, PHOS3, MG3, CK3 #### [address] #### VD25H #### [facility] [address] [place] [address] RBC #/vol (Bld) 4.13 10*6/uL Low 4.40-5.90 [facility] Comment on above: Performed By: #### H EMDF, PT, BMP3M, PHOS3, MG3, CK3 #### [address] #### VD25H #### [facility] [address] [place] [address] WBC #/vol (Bld) 13.6 10*3/uL High 3.6-10.7 [facility] Comment on above: Performed By: #### H EMDF, PT, BMP3M, PHOS3, MG3, CK3 #### [address] #### VD25H #### [facility] [address] [place] [address] Magnesiumon 07-10-2018 Magnesium mass conc 2.3 mg/dL Normal 1.6-2.3 [facility] Comment on above: Performed By: #### H EMDF, PT, BMP3M, PHOS3, MG3, CK3 #### [address] #### VD25H #### [facility] [address] [place] [address] Phosphoruson 07-10-2018 Phosphate mass conc 2.7 mg/dL Normal 2.5-4.5 [facility] Comment on above: Performed By: #### H EMDF, PT, BMP3M, PHOS3, MG3, CK3 #### [place] [address] [place], [place] #### VD25H #### [facility] [address] [place] [address] Add on test from HISon 07-09 Add on test from [facility] Accepted Normal [facility] Comment on above: Result Comment: Spec imen available & acceptable for analysis. Performed By: #### A DDON #### [address] Arterial Blood Gaseson 07-09 CO2 molar conc 24.5 mmol/L Normal 23.0-27.0 [facility] Comment on above: Performed By: #### H EMDF, PT, BMP3M, PHOS3, MG3, CK3 #### [address] #### VD25H #### [place] [address] [place] [address] HCO3 molar conc (Bld) 23.2 mmol/L Normal 21.0-25.0 [facility] Comment on above: Performed By: #### H EMDF, PT, BMP3M, PHOS3, MG3, CK3 #### [address] [place], [place] #### VD25H #### [facility] [address] [place] [address] Hemoglobin mass conc (Bld) 15.7 g/dL Normal ScreenOnly [facility] Comment on above: Performed By: #### H EMDF, PT, BMP3M, PHOS3, MG3, CK3 #### [place] [address] [place], [place] #### VD25H #### [place] [address] [place] [address] Oxygen ppres (Bld) 397.4 mm[Hg] High 80.0-100.0 [facility] Comment on above: Performed By: #### H EMDF, PT, BMP3M, PHOS3, MG3, CK3 #### [place] [address] [place], [place] #### VD25H #### [facility] [address] [place] [address] Oxygen saturation in Blood 99.2 % Normal 95.0-100.0 [facility] Comment on above: Performed By: #### H EMDF, PT, BMP3M, PHOS3, MG3, CK3 #### [address] #### VD25H #### [address] [place] [address] pCO2 42.3 mm[Hg] Normal 35.0-45.0 [facility] Comment on above: Performed By: #### H EMDF, PT, BMP3M, PHOS3, MG3, CK3 #### [address] #### VD25H #### [address] [place] [address] pH (Bld) 7.357 Normal 7.350-7.450 [facility] Comment on above: Performed By: #### H EMDF, PT, BMP3M, PHOS3, MG3, CK3 #### [place] [address] [place], [place] #### VD25H #### [place] [address] [place] [address] Std Base Excess -2.3 mmol/L Normal -3.0-3.0 [facility] Comment on above: Performed By: #### H EMDF, PT, BMP3M, PHOS3, MG3, CK3 #### [address] #### VD25H #### [place] [address] [place] [address] FIO2 100% Normal [facility] Comment on above: Performed By: #### H EMDF, PT, BMP3M, PHOS3, MG3, CK3 #### [place] [address] [place] #### VD25H #### [facility] [address] [place] [address] Basic Metabolic Panelon 06-29 Calcium mass conc 8.6 mg/dL Normal 8.4-10.4 [facility] Comment on above: Performed By: #### H EMDF, PT, BMP3M, PHOS3, MG3, CK3 #### [address] #### VD25H #### [place] [address] [place] [address] Glucose mass conc 150 mg/dL High 70-100 [facility] Comment on above: Performed By: #### H EMDF, PT, BMP3M, PHOS3, MG3, CK3 #### [address] #### VD25H #### [facility] [address] [place] [address] Anion gap molar conc 7 Normal [facility] Comment on above: Performed By: #### H EMDF, PT, BMP3M, PHOS3, MG3, CK3 #### [address] #### VD25H #### [facility] [address] [place] [address] CO2 molar conc 26 mmol/L Normal 22-30 [facility] Comment on above: Performed By: #### H EMDF, PT, BMP3M, PHOS3, MG3, CK3 #### [address] #### VD25H #### [facility] [address] [place] [address] Creatinine mass conc 0.80 mg/dL Normal 0.52-1.25 [facility] Comment on above: Performed By: #### H EMDF, PT, BMP3M, PHOS3, MG3, CK3 #### [address] #### VD25H #### [facility] [address] [place] [address] GFR/1.73 sq M predicted among blacks MDRD vol rate/area (S/P/Bld) mL/min/{1.73_m2} Normal >60 [facility] Comment on above: Performed By: #### H EMDF, PT, BMP3M, PHOS3, MG3, CK3 #### [address] #### VD25H #### [facility] [address] [place] [address] GFR/1.73 sq M predicted among non-blacks MDRD vol rate/area (S/P/Bld) mL/min/{1.73_m2} Normal >60 [facility] Comment on above: Result Comment: Sour ce- MDRD equation with creatinine calibration to IDMS(NKDEP) eGFR not recommended for drug dose adjustment Performed By: #### H EMDF, PT, BMP3M, PHOS3, MG3, CK3 #### [address] #### VD25H #### [facility] [address] [place] [address] Urea nitrogen mass conc 16 mg/dL Normal 7-20 S [facility] Comment on above: Performed By: #### H EMDF, PT, BMP3M, PHOS3, MG3, CK3 #### [address] #### VD25H #### [facility] [address] [place] [address] Chloride molar conc 110 mmol/L High 98-107 [facility] Comment on above: Performed By: #### H EMDF, PT, BMP3M, PHOS3, MG3, CK3 #### [facility] [address] [place], [place] #### VD25H #### [facility] [address] [place] [address] Potassium molar conc 4.7 mmol/L Normal 3.5-5.1 [facility] Comment on above: Performed By: #### H EMDF, PT, BMP3M, PHOS3, MG3, CK3 #### [facility] [address] [place] #### VD25H #### [facility] [address] [place] [address] Sodium molar conc 143 mmol/L Normal 135-145 [facility] Comment on above: Performed By: #### H EMDF, PT, BMP3M, PHOS3, MG3, CK3 #### [address] [place] [place], [place] #### VD25H #### [facility] [address] [place] [address] CKon 07-09-2018 CK enzyme act/vol 1451 U/L High 30-170 [facility] Comment on above: Performed By: #### H EMDF, PT, BMP3M, PHOS3, MG3, CK3 #### [address] [place] [place], [place] #### VD25H #### [facility] [address] [place] [address] CK enzyme act/vol 3832 U/L High 30-170 [facility] Comment on above: Performed By: #### H EMDF, PT, BMP3M, PHOS3, MG3, CK3 #### [place] [place] #### VD25H #### [facility] [address] [place] [address] CR Chest 1 View Frontalon CR Chest 1 View Frontal Patient Name: KATHYA FELDER Diagnostic Radiology Exam Date/Time 07/09/2018 06:21:56 EDT Exam CR Chest 1 View Frontal Ordering Physician MD NATE, [employer] Accession Number [id number] CPT4 Codes 19912 () Reason For Exam dyspnea Report CHEST [...] Transcribed Date and Time: 07/09/2018 6:39 Normal [facility] CR Chest Portableon 07-10-19 19 CR Chest Portable Patient Name: KATHYA HOOPER Diagnostic Radiology Exam Date/Time 07/09/2018 11:34:09 EDT Exam CR Chest Portable Ordering Physician INDRA JACOBSON Accession Number [id number] CPT4 Codes 49524 () Reason For Exam Central line placement [...] JOHN Transcribed Date and Time: 07/09/2018 1:01 [facility] CR Chest Portable Patient Name: KATHYA HOOPER Diagnostic Radiology Exam Date/Time 07/09/2018 03:05:20 EDT Exam CR Chest Portable Ordering Physician MD NATE, NICOLE HOLLEY Accession Number [id number] CPT4 Codes 13151 () Reason For Exam intubation Report CHEST PORTABLE: Indication: Inpatient; intubation Views: Portable frontal Comparison: 07/08/2018 at 22:16 Time: 07/09/2018 at 2:46 FINDINGS: Interval intubation with endotracheal tube approximately 4.2 cm above the level of the alma. An enteric tube has been placed with distal tip below the hemidiaphragm but excluded from [id number]. Cardiac monitoring wires and leads are present. [...] R Transcribed Date and Time: 07/09/2018 3:10 [facility] CR Chest Portable Patient Name: KATHYA HOOPER Diagnostic Radiology Exam Date/Time 07/08/2018 22:31:57 EDT Exam CR Chest Portable Ordering Physician MD NATE, NICOLE HOLLEY Accession Number [id number] CPT4 Codes 39694 () Reason For Exam cough Report CHEST [...] Transcribed Date and Time: 07/08/2018 11:23 Normal [facility] CTA Head/Neck w/ + w/o contr birgit 07-09-2018 CTA Head/Neck w/ + w/o contrast Patient Name: KATHYA HOOPER CT Exam Date/Time 07/09/2018 04:42:10 EDT Exam CTA Head/Neck w/ + w/o contrast Ordering Physician MD OREILLY ALEKSANDAR Accession Number [id number] CPT4 Codes Q9967 (CT ISOVUE 370MG/[id number]), 92750 (), 86838 () Reason For Exam CERVICAL SPINE FRACTURE Report CLINICAL INFORMATION: C-spine fracture after trauma. Vascular injury suspected. CTA HEAD: After 75 ml Isovue IV contrast, 0.3 mm axial cuts were obtained through the brain. Coronal and sagittal reconstructions are reviewed. In addition, 3D images of the chilkat of [place] were constructed by me and reviewed simultaneously on the separate [employer] Workstation. The examination is compared to a [...] at 0735 hrs. Report Dictated on Workstation: [id number] Final Dictated: 07/09/2018 9:50 am Dictating Physician: MD JERNIGAN JEFFREY Signed Date and Time: 07/09/2018 10:26 am Signed by: MD JERNIGAN JEFFREY Transcribed Date and Time: 07/09/2018 9:50 Normal [facility] Hemogram w/ Autodiffon 07-09 Abs Baso Cnt 0.1 10*3/uL Normal 0.0-0.2 [facility] Comment on above: Performed By: #### H EMDF, PT, BMP3M, PHOS3, MG3, CK3 #### [facility] [address] [place] [address] #### VD25H #### [facility] [address] [place] [address] Abs Neutrophile Cnt 13.3 10*3/uL High 1.8-7.0 [facility] Comment on above: Performed By: #### H EMDF, PT, BMP3M, PHOS3, MG3, CK3 #### [facility] [address] [place], [place] #### VD25H #### [facility] [address] [place] [address] Basophils/100 WBC (Bld) 0.3 % Normal 0.0-2.0 [facility] Comment on above: Performed By: #### H EMDF, PT, BMP3M, PHOS3, MG3, CK3 #### [address] [place], [place] #### VD25H #### [facility] [address] [place] [address] Eosinophils #/vol (Bld) 0.0 10*3/uL Normal 0.0-0.5 [facility] Comment on above: Performed By: #### H EMDF, PT, BMP3M, PHOS3, MG3, CK3 #### [address] #### VD25H #### [facility] [address] [place] [address] Eosinophils/100 WBC (Bld) 0.0 % Low 1.0-6.0 [facility] Comment on above: Performed By: #### H EMDF, PT, BMP3M, PHOS3, MG3, CK3 #### [address] #### VD25H #### [facility] [address] [place] [address] Erythrocyte distribution width Ratio (RBC) 13.7 % Normal 11.5-14.5 [facility] Comment on above: Performed By: #### H EMDF, PT, BMP3M, PHOS3, MG3, CK3 #### [address] #### VD25H #### [facility] [address] [place] [address] Granulocytes/100 WBC (Bld) 86.5 % High 40.0-80.0 [facility] Comment on above: Performed By: #### H EMDF, PT, BMP3M, PHOS3, MG3, CK3 #### [address] #### VD25H #### [facility] [address] [place] [address] Hematocrit Volume Fraction (Bld) 45.1 % Normal 40.0-52.0 [facility] Comment on above: Performed By: #### H EMDF, PT, BMP3M, PHOS3, MG3, CK3 #### [address] #### VD25H #### [facility] [address] [place] [address] Hemoglobin mass conc (Bld) 15.6 g/dL Normal 13.0-18.0 [facility] Comment on above: Performed By: #### H EMDF, PT, BMP3M, PHOS3, MG3, CK3 #### [address] #### VD25H #### [facility] [address] [place] [address] Lymphocytes #/vol (Bld) 0.8 10*3/uL Low 1.0-4.3 [facility] Comment on above: Performed By: #### H EMDF, PT, BMP3M, PHOS3, MG3, CK3 #### [address] #### VD25H #### [facility] [address] [place] [address] Lymphocytes/100 WBC (Bld) 5.5 % Low 20.0-40.0 [facility] Comment on above: Performed By: #### H EMDF, PT, BMP3M, PHOS3, MG3, CK3 #### [address] #### VD25H #### [facility] [address] [place] [address] MCH Entitic mass (RBC) 29.9 pg Normal 26.0-34.0 [facility] Comment on above: Performed By: #### H EMDF, PT, BMP3M, PHOS3, MG3, CK3 #### [address] [place], [place] #### VD25H #### [facility] [address] [place] [address] MCHC mass conc (RBC) 34.5 % Normal 32.0-36.0 [facility] Comment on above: Performed By: #### H EMDF, PT, BMP3M, PHOS3, MG3, CK3 #### [address] [place], [place] #### VD25H #### [facility] [address] [place] [address] MCV Entitic volume (RBC) 86.7 fL Normal 80.0-98.0 [facility] Comment on above: Performed By: #### H EMDF, PT, BMP3M, PHOS3, MG3, CK3 #### [address] #### VD25H #### [facility] [address] [place] [address] Monocytes #/vol (Bld) 1.2 10*3/uL High 0.0-0.8 [facility] Comment on above: Performed By: #### H EMDF, PT, BMP3M, PHOS3, MG3, CK3 #### [address] #### VD25H #### [facility] [address] [place] [address] Monocytes/100 WBC (Bld) 7.7 % Normal 2.0-10.0 [facility] Comment on above: Performed By: #### H EMDF, PT, BMP3M, PHOS3, MG3, CK3 #### [address] #### VD25H #### [facility] [address] [place] [address] Platelet mean volume Entitic volume (Bld) 8.1 fL Normal 7.4-10.4 [facility] Comment on above: Performed By: #### H EMDF, PT, BMP3M, PHOS3, MG3, CK3 #### [address] [place], [place] #### VD25H #### [facility] [address] [place] [address] Platelets #/vol (Bld) 197 10*3/uL Normal 140-440 [facility] Comment on above: Performed By: #### H EMDF, PT, BMP3M, PHOS3, MG3, CK3 #### [address] #### VD25H #### [facility] [address] [place] [address] RBC #/vol (Bld) 5.20 10*6/uL Normal 4.40-5.90 [facility] Comment on above: Performed By: #### H EMDF, PT, BMP3M, PHOS3, MG3, CK3 #### [address] #### VD25H #### [facility] [address] [place] [address] WBC #/vol (Bld) 15.4 10*3/uL High 3.6-10.7 [facility] Comment on above: Performed By: #### H EMDF, PT, BMP3M, PHOS3, MG3, CK3 #### [address] #### VD25H #### [facility] [address] [place] [address] MRI Spine Cervical w/o Contr birgit 07-09-2018 MRI Spine Cervical w/o Contrast Patient Name: KATHYA HOOPER MRI Exam Date/Time 07/09/2018 00:44:49 EDT Exam MRI Spine Cervical w/o Contrast Ordering Physician MD CHEYENNE, BRITTANY BERRY Accession Number [id number] CPT4 Codes 84152 () Reason For Exam CERVICAL SPINE FRACTURE [...] Transcribed Date and Time: 07/09/2018 7:45 Normal [facility] Magnesiumon 07-09-2018 Magnesium mass conc 2.2 mg/dL Normal 1.6-2.3 [facility] Comment on above: Performed By: #### H EMDF, PT, BMP3M, PHOS3, MG3, CK3 #### [address] #### VD25H #### [facility] [address] [place] [address] Phosphoruson 07-09-2018 Phosphate mass conc 4.0 mg/dL Normal 2.5-4.5 [facility] Comment on above: Performed By: #### H EMDF, PT, BMP3M, PHOS3, MG3, CK3 #### [address] #### VD25H #### [facility] [address] [place] Prothrombin Timeon 9 INR Coag RelTime (PPP) 1.0 Normal 0.9-1.1 [facility] Comment on above: Result Comment: Yefri [...] EMDF, PT, BMP3M, PHOS3, MG3, CK3 #### [address] #### VD25H #### [facility] [address] [place] [address] Prothrombin time (PT) Coag time (PPP) 10.3 s Normal 9.0-12.0 [facility] Comment on above: Result Comment: . Performed By: #### H EMDF, PT, BMP3M, PHOS3, MG3, CK3 #### [address] #### VD25H #### [facility] [address] [place] TS GELon 07-09-2018 TS GEL ABO Group: O Rh, Gel: POS Antibody Screen Gel: NEG Normal [facility] [employer] [facility] Comment on above: Performed By: #### T SGL #### [facility] [address] [place] [address] Vit D 25-OH, Totalon 019 Vit D 25-OH, Total 23 ng/mL Low 30-100 [facility] [employer] Comment on above: Result Comment: Ther apy is based on measurement of Total 25-OHD with the following classification levels: Less than 20 ng/mL: Indicative of Vit D deficiency 20-30 ng/mL: Suggests Vit D insufficiency Optimal: Greater than or equal to 30 ng/mL Test performed by [employer] Competitive Immunoassay, measuring Total Vitamin D, not individual fractions. Performed By: #### H EMDF, PT, BMP3M, PHOS3, MG3, CK3 #### [facility] [address] [place] [address] #### VD25H #### [facility] [address] [place] [address] Hematologyon 01-03-2003 Lymphocytes (Bld) [#/Vol] RECTUM, BIOPSY - BENIGN COLONIC MUCOSA WITH INTRAMUCOSAL LYMPHOID AGGREGATES. [facility] Otheron 01-03-2003 CONVERTED ELECTRONIC SIGNATURE BARBARA CASTILLO M.D., PATHOLOGIST (Electronic signature on file) Final Signed Out: 01/03/2003 15:09 [facility] CONVERTED ORDERING PROVIDER Ordering Provider: BENI VERA [facility] Culture, urine Bacteria identified Cx Nom (U) Culture exhibits no growth. [facility] Work Phone: Vital Signs Date Time Vital Sign Value Performing Clinician Facility 10-02-2023 13:56-0400 Diastolic blood pressure 62 mm[Hg] Fei Farooq MD Work Phone: [facility] 10-02-2023 13:56-0400 Heart rate 104 /min Fei Farooq MD Work Phone: [facility] 10-02-2023 13:56-0400 SaO2% (BldA) [Mass fraction] 94 % Fei Farooq MD Work Phone: [facility] 10-02-2023 13:56-0400 Systolic blood pressure 124 mm[Hg] Fei Farooq MD Work Phone: [employer] 10-02-2023 11:13-0400 Respiratory rate 16 /min Fei Farooq MD Work Phone: [employer] 10-02-2023 09:47-0400 Body mass index (BMI) [Ratio] 26.19 kg/m2 Fei Farooq MD Work Phone: [employer] 10-02-2023 09:47-0400 Body temperature 98.01 [degF] Fei Farooq MD Work Phone: [employer] 10-02-2023 09:47-0400 Body weight 92.53 kg Fei Farooq MD Work Phone: [employer] 05-20-2022 18:30-0500 Body mass index (BMI) [Ratio] 26.32 kg/m2 Abelardo Gombash DO Work Phone: [employer] 05-20-2022 18:30-0500 Body temperature 97.3 [degF] Abelardo Gombash DO Work Phone: [employer] 05-20-2022 18:30-0500 Body weight 92.99 kg Abelardo Gombash DO Work Phone: [employer] 05-20-2022 18:30-0500 Diastolic blood pressure 108 mm[Hg] Abelardo Gombash DO Work Phone: [employer] 05-20-2022 18:30-0500 Heart rate 100 /min Abelardo Gombash DO Work Phone: [employer] 05-20-2022 18:30-0500 Respiratory rate 14 /min Abelardo Gombash DO Work Phone: [employer] 05-20-2022 18:30-0500 SaO2% (BldA) [Mass fraction] 98 % Abelardo Gombash DO Work Phone: [employer] 05-20-2022 18:30-0500 Systolic blood pressure 125 mm[Hg] Abelardo Gombash DO Work Phone: [facility] 05-15-2021 09:40-0500 Body height 188 cm Timothy Micheal DO Work Phone: [facility] 05-15-2021 09:40-0500 Body mass index (BMI) [Ratio] 23.75 kg/m2 Timothy Micheal DO Work Phone: [facility] 05-15-2021 09:40-0500 Body weight 83.92 kg Timothy Micheal DO Work Phone: [facility] 05-15-2021 09:38-0500 Body temperature 97.59 [degF] Timothy Micheal DO Work Phone: [facility] 05-15-2021 09:38-0500 Diastolic blood pressure 76 mm[Hg] Timothy Micheal DO Work Phone: [facility] 05-15-2021 09:38-0500 Heart rate 102 /min Timothy Micheal DO Work Phone: [facility] 05-15-2021 09:38-0500 Respiratory rate 16 /min Timothy Micheal DO Work Phone: [facility] 05-15-2021 09:38-0500 SaO2% (BldA) [Mass fraction] 99 % Timothy Micheal DO Work Phone: [facility] 05-15-2021 09:38-0500 Systolic blood pressure 115 mm[Hg] Timothy Micheal DO Work Phone: [facility] 03-24-2021 10:20-0500 Respiratory rate 18 /min Brady Nesheim DO Work Phone: [facility] 03-24-2021 10:20-0500 SaO2% (BldA) [Mass fraction] 94 % Brady Nesheim DO Work Phone: [facility] 03-24-2021 08:44-0500 Body temperature 97.7 [degF] Brady Nesheim DO Work Phone: [facility] 03-24-2021 08:44-0500 Diastolic blood pressure 55 mm[Hg] Brady Nesheim DO Work Phone: [facility] 03-24-2021 08:44-0500 Heart rate 85 /min Brady Nesheim DO Work Phone: [facility] 03-24-2021 08:44-0500 Systolic blood pressure 85 mm[Hg] Brady Nesheim DO Work Phone: [facility] 03-20-2021 13:41-0500 Body height 188 cm Brady Nesheim DO Work Phone: [facility] 03-20-2021 11:16-0500 Body mass index (BMI) [Ratio] 23.86 kg/m2 Brady Nesheim DO Work Phone: [facility] 03-20-2021 11:16-0500 Body weight 84.32 kg Brady Nesheim DO Work Phone: [facility] Comment on above: per Nataly RN (bed scal e measurement) on 03/20/2021 03-18-2021 15:02-0500 Body temperature 99.5 [degF] Boo Castro MD Work Phone: [facility] 03-18-2021 15:02-0500 Diastolic blood pressure 82 mm[Hg] Boo Castro MD Work Phone: [facility] 03-18-2021 15:02-0500 Heart rate 111 /min Boo Castro MD Work Phone: [facility] 03-18-2021 15:02-0500 Respiratory rate 18 /min Boo Castro MD Work Phone: [facility] 03-18-2021 15:02-0500 SaO2% (BldA) [Mass fraction] 93 % Boo Castro MD Work Phone: [facility] 03-18-2021 15:02-0500 Systolic blood pressure 111 mm[Hg] Boo Castro MD Work Phone: [facility] 10-30-2020 17:10-0400 Diastolic blood pressure 82 mm[Hg] Bethany Clemons MD Work Phone: [facility] Work Phone: 10-30-2020 17:10-0400 Heart rate 110 /min Bethany Clemons MD Work Phone: [employer] [employer] Work Phone: 10-30-2020 17:10-0400 Respiratory rate 16 /min Bethany Clemons MD Work Phone: [facility] Work Phone: 10-30-2020 17:10-0400 SaO2% (BldA) [Mass fraction] 99 % Bethany Clemons MD Work Phone: [facility] Work Phone: 10-30-2020 17:10-0400 Systolic blood pressure 125 mm[Hg] Bethany Clemons MD Work Phone: [facility] Work Phone: 10-30-2020 13:02-0400 Body mass index (BMI) [Ratio] 24.65 kg/m2 Bethany Clemons MD Work Phone: [facility] [employer] Work Phone: 10-30-2020 13:02-0400 Body temperature 96.91 [degF] Bethany Clemons MD Work Phone: [facility] Work Phone: 10-30-2020 13:02-0400 Body weight 87.09 kg Bethany Clemons MD Work Phone: [facility] [employer] Work Phone: 09-22-2020 05:01-0400 Diastolic blood pressure 76 mm[Hg] Elizabeth Moura MD Work Phone: [facility] Work Phone: 09-22-2020 05:01-0400 Systolic blood pressure 114 mm[Hg] Elizabeth Moura MD Work Phone: [facility] Work Phone: 09-22-2020 00:26-0400 Body temperature 97.81 [degF] Elizabeth Moura MD Work Phone: [facility] [employer] Work Phone: 09-22-2020 00:26-0400 Heart rate 86 /min Elizabeth Moura MD Work Phone: [facility] Work Phone: 09-22-2020 00:26-0400 Respiratory rate 16 /min Elizabeth Moura MD Work Phone: [facility] Work Phone: 09-22-2020 00:26-0400 SaO2% (BldA) [Mass fraction] 98 % Elizabeth Moura MD Work Phone: [employer] Work Phone: 06-26-2020 21:50-0500 BP Diastolic 71 mm[Hg] Abelardo QUIROGAA Work Phone: 06-26-2020 21:50-0500 BP Systolic 118 mm[Hg] Abeladro QUIROGAA Work Phone: 06-26-2020 21:50-0500 Pulse (Heart Rate) 84 /min Abelardo QUIROGAA Work Phone: 06-26-2020 21:50-0500 Pulse Oximetry 96 % Abelardo QUIROGAA Work Phone: 06-26-2020 21:50-0500 Respiratory Rate 16 /min Abelardo QUIROGAA Work Phone: 06-26-2020 17:58-0500 BMI (Body Mass Index) 25.16 kg/m2 Abelardo QUIROGAA Work Phone: 06-26-2020 17:58-0500 Body Temperature 97.39 [degF] Abelardo QUIROGAA Work Phone: 06-26-2020 17:58-0500 Body weight 88.91 kg Abelardo QUIROGAA Work Phone: 06-26-2020 17:58-0500 Height 188 cm Abelardo QUIROGAA Work Phone: 05-16-2019 23:00-0500 Diastolic blood pressure 68 mm[Hg] Elizabeth Moura MD Work Phone: [facility] Work Phone: 05-16-2019 23:00-0500 Heart rate 95 /min Elizabeth Moura MD Work Phone: [facility] Work Phone: 05-16-2019 23:00-0500 Respiratory rate 18 /min Elizabeth Moura MD Work Phone: [facility] Work Phone: 05-16-2019 23:00-0500 SaO2% (BldA) [Mass fraction] 100 % Elizabeth Moura MD Work Phone: [facility] Work Phone: 05-16-2019 23:00-0500 Systolic blood pressure 115 mm[Hg] Elizabeth Moura MD Work Phone: [facility] Work Phone: 05-16-2019 19:57-0500 Body temperature 98.49 [degF] Elizabeth Moura MD Work Phone: [facility] Work Phone: NEGATED: Highlighted [id number] 14:34-0500 BMI (Body Mass Index) 22.16 kg/m2 Ana Stevenson [employer] [facility] Work Phone: NEGATED: Highlighted [id number] 14:34-0500 Body weight 78.02 kg Ana Stevenson [employer] [facility] Work Phone: NEGATED: Highlighted [id number] 14:34-0500 Body weight 78 kg Ana Stevenson [employer] [facility] Work Phone: NEGATED: Highlighted [id number] 14:34-0500 BP Diastolic 66 mm[Hg] Ana Stevenson [employer] [facility] Work Phone: NEGATED: Highlighted [id number] 14:34-0500 BP Systolic 102 mm[Hg] Ana Stevenson [employer] [facility] Work Phone: NEGATED: Highlighted [id number] 14:34-0500 Height 187.96 cm Ana Stevenson LPN [facility] Work Phone: NEGATED: Highlighted [id number] 14:34-0500 Height 188 cm Ana Stevenson [employer] [facility] Work Phone: NEGATED: Highlighted [id number] 14:34-0500 Pulse (Heart Rate) 104 /min Ana Stevenson LPN [facility] Work Phone: Encounters Encounter Date Encounter Type Care Provider Facility Start: 10-07-2024 ambulatory Renard GARLAND Faci lity:[facility] Start: 09-30-2024 ambulatory Renard GARLAND Faci lity:[facility] Start: 09-24-2024 ambulatory Renard GARLAND Faci lity:[facility] Start: 09-24-2024 Registered Referred Renard Burgos - [facility] Start: 09-16-2024 ambulatory Renard GARLAND Faci lity:[facility] Start: 09-16-2024 Registered Referred Renard Burgos - [place] [facility] Start: 09-11-2024 Registered Referred Renard Burgos - [place] [facility] Start: 09-11-2024 End: 09-11-2024 ambulatory Renard GARLAND Facility:[facility] Start: 09-09-2024 End: 09-09-2024 ambulatory Renard GARLAND [facility] Work Phone: Start: 09-09-2024 End: 09-09-2024 Departed Referred Renard Burgos -[place] [facility] Start: 09-09-2024 Registered Referred Renard Burgos - [facility] Start: 09-09-2024 End: 09-09-2024 ambulatory Renard GARLAND Facility:[facility] Start: 09-02-2024 Registered Referred Renard BRUNO Start: 09-02-2024 End: 09-02-2024 ambulatory Renard GARLAND Facility:[facility] Start: 08-26-2024 End: 08-26-2024 ambulatory Renard Shelliediego GILL [facility] Work Phone: Start: 08-26-2024 End: 08-26-2024 Departed Referred Renard Amezquitaros -[place] [facility] Start: 08-26-2024 Registered Referred Renard Burgos - [place] [facility] Start: 08-26-2024 End: 08-26-2024 ambulatory Renard GARLAND Facility:[facility] Start: 08-23-2024 End: 08-23-2024 Departed Referred Renard Amezquitaros -[place] [facility] Start: 08-23-2024 Registered Referred Renard Amezquitaros - [place] [facility] Start: 08-23-2024 End: 08-23-2024 ambulatory Renard GARLAND Facility:[facility] Start: 08-19-2024 End: 08-19-2024 ambulatory Renard Hensleydiego GILL [facility] Work Phone: Start: 08-19-2024 End: 08-19-2024 Departed Referred Renard Amezquitaros -[place] [facility] Start: 08-19-2024 Registered Referred Renard Amezquitaros - [place] [facility] Start: 08-19-2024 End: 08-19-2024 ambulatory Renard GARLAND Facility:[facility] Start: 08-12-2024 End: 08-12-2024 ambulatory Renard GARLAND [facility] Work Phone: Start: 08-12-2024 End: 08-12-2024 Departed Referred Renard Amezquitaros -[place] [facility] Start: 08-12-2024 Registered Referred Renard Burgos - [place] [facility] Start: 08-12-2024 End: 08-12-2024 ambulatory Renard GARLAND Facility:[facility] Start: 08-05-2024 End: 08-05-2024 Departed Referred Renard Amezquitaros -[place] [facility] Start: 08-05-2024 Registered Referred Renard Amezquitaros - [place] [facility] Start: 08-05-2024 End: 08-05-2024 ambulatory Renard GARLAND Facility:[facility] Start: 07-29-2024 End: 07-29-2024 ambulatory Renard GARLAND [facility] Work Phone: Start: 07-29-2024 End: 07-29-2024 Departed Referred Renard Burgos -[place] [facility] Start: 07-29-2024 Registered Referred Renard Burgos - [place] [facility] Start: 07-29-2024 End: 07-29-2024 ambulatory Renard GARLAND Facility:[facility] Start: 07-22-2024 End: 07-22-2024 ambulatory Renard GARLAND [facility] Work Phone: Start: 07-22-2024 End: 07-22-2024 Departed Referred Renard Burgos -[place] [facility] Start: 07-22-2024 Registered Referred Renard Burgos - [place] [facility] Start: 07-22-2024 End: 07-22-2024 ambulatory Renard GARLAND Facility:[facility] Start: 07-16-2024 End: 07-16-2024 ambulatory Renard GARLAND [facility] Work Phone: Start: 07-16-2024 End: 07-16-2024 Departed Referred Renard Burgos [facility] [employer] [facility] Start: 07-16-2024 Registered Referred Renard Burgos - [place] [facility] Start: 07-15-2024 End: 07-16-2024 ambulatory Renard GARLAND [facility] Work Phone: Start: 07-15-2024 End: 07-15-2024 Departed Referred Renard Burgos [facility] [employer] [facility] Start: 07-15-2024 Registered Referred Renard Burgos - [place] [facility] Start: 07-15-2024 End: 07-15-2024 ambulatory Renard GARLAND Facility:[facility] Start: 07-08-2024 End: 07-08-2024 ambulatory Renard GARLAND [facility] Work Phone: Start: 07-08-2024 End: 07-08-2024 Departed Referred Renard Burgos -[place] [facility] Start: 07-08-2024 Registered Referred Renard Burgos - [place] [employer] [facility] Start: 07-08-2024 End: 07-08-2024 ambulatory [facility] [facility] Start: 07-01-2024 End: 07-01-2024 ambulatory Renard GARLAND [facility] Work Phone: Start: 07-01-2024 End: 07-01-2024 Departed Referred Renard Burgos [facility] [employer] Start: 07-01-2024 Registered Referred Renard Burgos - [place] [employer] Start: 07-01-2024 End: 07-01-2024 ambulatory Renard GARLAND Facility:[facility] Start: 06-27-2024 End: 06-27-2024 ambulatory Renard GARLAND [facility] Work Phone: Start: 06-27-2024 End: 06-27-2024 Departed Referred Renard Burgos [facility] [facility] [facility] Start: 06-27-2024 Registered Referred [facility] [employer] [facility] Start: 06-27-2024 End: 06-27-2024 ambulatory Renard GARLAND Facility:[facility] Start: 06-24-2024 End: 06-24-2024 Subsequent hospital visit by physician Rashaad Pink NP Work Phone: [facility] CT Imaging Comment on above: Chronic cough Start: 06-24-2024 End: 06-24-2024 ambulatory RASHAAD SMITH [facility] Start: 06-24-2024 End: 06-24-2024 Departed Referred Renard Burgos [facility] [employer] [facility] Start: 06-24-2024 Registered Referred Renard Burgos - [place] [employer] Start: 06-24-2024 End: 06-24-2024 ambulatory Renard GARLAND Facility:[facility] Start: 06-17-2024 End: 06-17-2024 ambulatory Renard GARLAND [facility] Work Phone: Start: 06-17-2024 End: 06-17-2024 Departed Referred Renard Burgos [facility] [facility] [facility] Start: 06-17-2024 Registered Referred Renard Burgos - [place] [employer] Start: 06-17-2024 End: 06-17-2024 ambulatory Renard GARLAND Facility:[facility] Start: 06-12-2024 End: 09-11-2024 Transcribe Orders Rashaad Smith QUALITY SPECIALIST - DECK [employer]ALER Work Phone: [facility] Central Scheduling Comment on above: Chronic cough (Prima ry Dx) Start: 06-10-2024 End: 06-10-2024 ambulatory Renard GARLAND [facility] Work Phone: Start: 06-10-2024 End: 06-10-2024 Departed Referred Renard [facility] [employer] Start: 06-10-2024 Registered Referred Renard Burgos - [place] [employer] [facility] Start: 06-10-2024 End: 06-10-2024 ambulatory Renard GARLAND Facility:[facility] Start: 06-07-2024 End: 06-07-2024 ambulatory Renard GARLAND [facility] Work Phone: Start: 06-07-2024 End: 06-07-2024 Departed Referred eRnard BRUNO Start: 06-07-2024 Registered Referred Renard Burgos - [place] [employer] Start: 06-07-2024 End: 06-07-2024 ambulatory Renard GARLAND Facility:[facility] Start: 06-03-2024 End: 06-03-2024 ambulatory Renard GARLAND [facility] Work Phone: Start: 06-03-2024 End: 06-03-2024 Departed Referred Renard Burgos [facility] [employer] Start: 06-03-2024 End: 06-03-2024 ambulatory Renard GARLAND Facility:[facility] Start: 05-27-2024 End: 05-27-2024 Departed Referred Renard Burgos [place] [employer] Start: 05-27-2024 End: 05-27-2024 ambulatory Renard GARLAND Facility:[facility] Start: 05-20-2024 End: 05-20-2024 Departed Referred Renard Burgos [facility] [employer] Start: 05-20-2024 End: 05-20-2024 ambulatory Renard GARLAND Facility:[facility] Start: 05-13-2024 End: 05-13-2024 Departed Referred Renard Burgos [facility] [employer] Start: 05-13-2024 End: 05-13-2024 ambulatory Renard GARLAND Facility:[facility] Start: 05-06-2024 End: 05-06-2024 Departed Referred Renard Burgos [facility] [employer] Start: 05-06-2024 End: 05-06-2024 ambulatory Renard GARLAND Facility:[facility] Start: 05-03-2024 End: 05-03-2024 Telephone encounter Renard Burgos Work Phone: [facility] Clinical Communication Comment on above: Other Start: 04-29-2024 End: 04-29-2024 Departed Referred Renard Burgos -[place] [employer] Start: 04-29-2024 End: 04-29-2024 ambulatory Renard GARLAND Facility:[facility] Start: 04-22-2024 End: 04-22-2024 Departed Referred Renard Burgos [facility] [employer] Start: 04-22-2024 End: 04-22-2024 ambulatory Renard GARLAND Facility:[facility] Start: 04-15-2024 End: 04-15-2024 Departed Referred Renard Burgos [place] [employer] Start: 04-15-2024 End: 04-15-2024 ambulatory Renard GARLAND Facility:[facility] Start: 04-08-2024 ambulatory Renard GARLAND Faci lity:[facility] Start: 04-08-2024 Registered Referred Renard Burgos - [place] [employer] Start: 04-01-2024 ambulatory Renard Hensleysahola OLS Faci lity:[facility] Start: 04-01-2024 Registered Referred Renard Shelliediego - [place] [employer] Start: 03-25-2024 End: 03-25-2024 Departed Referred Renard Shellieros [place] [employer] Start: 03-25-2024 End: 03-25-2024 ambulatory Renard Hensleysaros OLS Facility:[facility] Start: 03-18-2024 End: 03-18-2024 Departed Referred Renard Shelliediego [place] [employer] Start: 03-18-2024 End: 03-18-2024 ambulatory Renard Hensleysaros OLS Facility:[facility] Start: 03-11-2024 End: 03-11-2024 Departed Referred Renard Shelliediego [place] [employer] Start: 03-11-2024 End: 03-11-2024 ambulatory Renard Hensleysaros OLS Facility:[facility] Start: 03-04-2024 End: 03-04-2024 ambulatory Renard Hensleysahola OLS Facility:[facility] Start: 02-26-2024 End: 02-26-2024 ambulatory Renard Hensleysahola OLS Facility:[facility] Start: 02-23-2024 End: 02-23-2024 ambulatory Renard Hensleysahola OLS Facility:[facility] Start: 02-19-2024 End: 02-19-2024 ambulatory Renard Hensleysaros OLS Facility:[facility] Start: 02-12-2024 End: 02-12-2024 ambulatory Renard Hensleysaros OLS Facility:[facility] Start: 02-05-2024 End: 02-05-2024 ambulatory Renard Katsaros OLS Facility:[facility] Start: 01-29-2024 End: 01-29-2024 ambulatory Renard Katsaros OLS Facility:[facility] Start: 01-22-2024 End: 01-22-2024 ambulatory Renard Katsaros OLS Facility:[facility] Start: 01-15-2024 ambulatory Renard Katsaros OLS Faci lity:[facility] Start: 01-08-2024 End: 01-08-2024 ambulatory Renard Hensleysaros OLS Facility:[facility] Start: 01-02-2024 ambulatory Renard Shellieohla GILL Faci lity:[facility] Start: 12-25-2023 ambulatory Renard Shleliehola GILL Faci lity:[facility] Start: 12-18-2023 End: 12-18-2023 ambulatory Renard Shelliesaros OLS Facility:[facility] Start: 12-11-2023 End: 12-11-2023 ambulatory Renard Shelliesaros OLS Facility:[facility] Start: 12-04-2023 End: 12-04-2023 ambulatory Renard Shellieros OLS Facility:[facility] Start: 11-27-2023 End: 11-27-2023 ambulatory Renard Shelliesaros OLS Facility:[facility] Start: 11-22-2023 End: 11-22-2023 ambulatory RENARD SHELLIEDIEGO [facility] Start: 11-22-2023 End: 11-22-2023 Subsequent hospital visit by physician Renard Burgos Work Phone: [facility] X-ray Imaging Comment on above: Dysphagia, oropharyn geal phase; Feeding difficulties Start: 11-20-2023 End: 11-20-2023 ambulatory Renard Shelliediego GARLAND Facility:[facility] Start: 11-13-2023 End: 11-13-2023 ambulatory Renard Shellieros OLS Facility:[facility] Start: 11-06-2023 End: 11-06-2023 ambulatory Renard Shelliesaros OLS Facility:[facility] Start: 10-30-2023 End: 10-30-2023 ambulatory Renard hSelliediego GARLAND Facility:[facility] Start: 10-23-2023 End: 10-23-2023 ambulatory Renard Shelliediego OLS Facility:[facility] Start: 10-16-2023 End: 01-15-2024 Transcribe Orders Renard Burgos Work Phone: [facility] Central Scheduling Comment on above: Dysphagia, oropharyn geal phase (Primary Dx); Feeding difficulties Start: 10-16-2023 End: 10-16-2023 ambulatory Renard Hensleysaros GILL Facility:[facility] Start: 10-02-2023 End: 10-02-2023 Emergency department patient visit Fei Farooq MD Work Phone: [facility] ED Comment on above: Dyspnea, unspecified type (Primary Dx) Start: 08-07-2023 [facility] [employer] [facility] Start: 07-31-2023 End: 07-31-2023 ambulatory [facility] Work Phone: Start: 07-31-2023 End: 07-31-2023 [facility] [employer] [facility] Start: 07-31-2023 [facility] Start: 07-24-2023 End: 07-24-2023 ambulatory [facility] Work Phone: Start: 07-24-2023 End: 07-24-2023 [facility] [employer] [facility] Start: 07-17-2023 End: 07-17-2023 ambulatory [facility] Work Phone: Start: 07-17-2023 End: 07-17-2023 [facility] [employer] [facility] Start: 07-17-2023 [facility] [employer] Start: 07-10-2023 End: 07-10-2023 ambulatory [facility] Work Phone: Start: 07-10-2023 End: 07-10-2023 [facility] Start: 07-10-2023 [facility] Start: 07-03-2023 End: 07-03-2023 ambulatory [facility] Work Phone: Start: 07-03-2023 End: 07-03-2023 [facility] [employer] [facility] Start: 07-03-2023 [facility] [employer] Start: 06-26-2023 [facility] [employer] [facility] Start: 06-19-2023 End: 06-19-2023 ambulatory [facility] Work Phone: Start: 06-19-2023 End: 06-19-2023 [facility] Start: 06-19-2023 [facility] [employer] [facility] Start: 06-12-2023 End: 06-12-2023 ambulatory [facility] Work Phone: Start: 06-12-2023 End: 06-12-2023 [facility] [employer] [facility] Start: 06-12-2023 [facility] Start: 06-05-2023 End: 06-05-2023 ambulatory [facility] Work Phone: Start: 06-05-2023 End: 06-05-2023 [facility] Start: 06-05-2023 [facility] Start: 05-29-2023 End: 05-29-2023 [facility] [employer] [facility] Start: 05-29-2023 [facility] [employer] [facility] Start: 05-22-2023 End: 05-22-2023 ambulatory [facility] Work Phone: Start: 05-22-2023 End: 05-22-2023 [facility] [employer] [facility] Start: 05-22-2023 [facility] Start: 05-15-2023 End: 05-15-2023 [facility] [employer] [facility] Start: 05-15-2023 [facility] [employer] [facility] Start: 05-08-2023 End: 05-08-2023 ambulatory [facility] Work Phone: Start: 05-08-2023 End: 05-08-2023 [facility] [employer] [facility] Start: 04-17-2023 End: 04-17-2023 ambulatory [facility] Work Phone: Start: 04-17-2023 End: 04-17-2023 [facility] [employer] [facility] Start: 04-17-2023 Registered Referred [facility] [employer] Start: 04-14-2023 End: 04-14-2023 ambulatory [facility] Work Phone: Start: 04-14-2023 End: 04-14-2023 [facility]ed [facility] [employer] [facility] Start: 04-14-2023 Registered Referred [facility] [facility] [facility] Start: 04-10-2023 End: 04-10-2023 [facility]ed [facility] Start: 04-10-2023 [facility] Start: 04-03-2023 End: 04-03-2023 ambulatory [facility] Work Phone: Start: 04-03-2023 End: 04-03-2023 [facility]ed [facility] Start: 04-03-2023 Registered Referred [facility] [employer] Start: 03-27-2023 End: 03-27-2023 ambulatory [facility] Work Phone: Start: 03-27-2023 End: 03-27-2023 [facility] [employer] [facility] Start: 03-27-2023 Registered Referred [facility] [facility] [facility] Start: 03-20-2023 End: 03-20-2023 ambulatory [facility] Work Phone: Start: 03-20-2023 End: 03-20-2023 [facility] Start: 03-20-2023 Registered [facility] [employer] [facility] Start: 03-16-2023 End: 03-16-2023 ambulatory [facility] Work Phone: Start: 03-16-2023 End: 03-16-2023 [facility] Start: 03-16-2023 Registered Referred [facility] [employer] [facility] Start: 03-13-2023 End: 03-13-2023 ambulatory [facility] Work Phone: Start: 03-13-2023 End: 03-13-2023 [facility]ed [facility] [employer] [facility] Start: 03-06-2023 End: 03-06-2023 ambulatory [facility] Work Phone: Start: 03-06-2023 End: 03-06-2023 [facility] Start: 03-06-2023 Registered [facility] [employer] [facility] Start: 02-27-2023 End: 02-27-2023 ambulatory [facility] Work Phone: Start: 02-27-2023 End: 02-27-2023 [facility]ed [facility] [employer] [facility] Start: 02-20-2023 End: 02-20-2023 ambulatory [facility] Work Phone: Start: 02-20-2023 End: 02-20-2023 [facility]ed [facility] Start: 02-20-2023 Registered [facility] [employer] [facility] Start: 02-13-2023 End: 02-13-2023 ambulatory [facility] Work Phone: Start: 02-13-2023 End: 02-13-2023 [facility]ed [facility] Start: 02-13-2023 Registered [facility] Start: 02-06-2023 End: 02-06-2023 ambulatory [facility] Work Phone: Start: 02-06-2023 End: 02-06-2023 Departed Referred [facility] [employer] Start: 02-06-2023 Registered Referred [facility] [employer] Start: 01-30-2023 End: 01-30-2023 ambulatory [facility] Work Phone: Start: 01-30-2023 End: 01-30-2023 Departed Referred [facility] [employer] Start: 01-30-2023 Registered Referred [facility] [facility] Start: 01-23-2023 End: 01-23-2023 Departed Referred [facility] [employer] Start: 01-23-2023 Registered [facility] [employer] [facility] Start: 01-16-2023 End: 01-16-2023 ambulatory [facility] Work Phone: Start: 01-16-2023 End: 01-16-2023 [facility]ed [facility] Start: 01-16-2023 Registered Referred [facility] [employer] Start: 01-09-2023 End: 01-09-2023 Departed Referred [facility] [employer] Start: 01-09-2023 Registered Referred [facility] [facility] [facility] Start: 01-03-2023 End: 01-03-2023 ambulatory [facility] Work Phone: Start: 01-03-2023 End: 01-03-2023 Departed Referred [facility] [employer] Start: 01-03-2023 Registered Referred [facility] [employer] Start: 12-26-2022 End: 12-26-2022 ambulatory [facility] Work Phone: Start: 12-26-2022 End: 12-26-2022 Departed [facility] [employer] [facility] Start: 12-26-2022 [facility] Start: 12-19-2022 End: 12-19-2022 ambulatory [facility] Work Phone: Start: 12-19-2022 End: 12-19-2022 Dep[facility]ed [facility] [employer] [facility] Start: 12-19-2022 Registered Referred [facility] [employer] Start: 12-12-2022 End: 12-12-2022 Departed [facility]erred [facility] Start: 12-12-2022 Registered Referred [facility] [employer] Start: 12-05-2022 End: 12-05-2022 ambulatory [facility] Work Phone: Start: 12-05-2022 End: 12-05-2022 Dep[facility]ed [facility] [employer] [facility] Start: 12-05-2022 Registered [facility] [employer] Start: 11-28-2022 End: 11-28-2022 ambulatory [facility] Work Phone: Start: 11-28-2022 End: 11-28-2022 Dep[facility]ed [facility]erred [facility] [employer] [facility] Start: 11-28-2022 Registered Referred [facility] [employer] Start: 11-21-2022 End: 11-21-2022 ambulatory [facility] Work Phone: Start: 11-21-2022 End: 11-21-2022 [facility] Start: 11-21-2022 Registered Referred [facility] [employer] Start: 11-14-2022 End: 11-14-2022 ambulatory [facility] Work Phone: Start: 11-14-2022 End: 11-14-2022 Departed [facility] Start: 11-14-2022 Registered [facility] Start: 11-07-2022 Registered [facility] [employer] [facility] Start: 10-31-2022 End: 10-31-2022 ambulatory [facility] Work Phone: Start: 10-31-2022 End: 10-31-2022 Departed Referred [facility] [employer] Start: 10-31-2022 Registered Referred [facility] [employer] Start: 10-24-2022 End: 10-24-2022 ambulatory [facility] Work Phone: Start: 10-24-2022 End: 10-24-2022 Departed Referred [facility] [employer] Start: 10-24-2022 Registered Referred [facility] [employer] [facility] Start: 10-17-2022 End: 10-17-2022 Departed Referred [facility] [employer] Start: 10-17-2022 Registered Referred [facility] [employer] Start: 10-10-2022 End: 10-10-2022 ambulatory [facility] Work Phone: Start: 10-10-2022 End: 10-10-2022 Departed Referred [facility] [employer] Start: 10-10-2022 Registered Referred [facility] [employer] Start: 10-03-2022 End: 10-03-2022 ambulatory [facility] Work Phone: Start: 10-03-2022 End: 10-03-2022 Departed Referred [facility] [employer] Start: 09-19-2022 End: 09-19-2022 Departed Referred [facility] [employer] [facility] Start: 09-19-2022 Registered Referred [facility] [employer] Start: 09-12-2022 End: 09-12-2022 ambulatory [facility] Work Phone: Start: 09-12-2022 End: 09-12-2022 Departed Referred [facility] [employer] Start: 09-05-2022 End: 09-05-2022 Departed Referred [facility] [employer] Start: 09-05-2022 Registered Referred [facility] [employer] [facility] Start: 08-29-2022 End: 08-29-2022 Departed Referred [facility] [employer] Start: 08-29-2022 Registered Referred [facility] [employer] Start: 08-22-2022 End: 08-22-2022 ambulatory [facility] Work Phone: Start: 08-22-2022 End: 08-22-2022 Departed Referred [facility] [employer] Start: 08-22-2022 Registered Referred [facility] [employer] Start: 08-15-2022 End: 08-15-2022 ambulatory [facility] Work Phone: Start: 08-15-2022 End: 08-15-2022 [facility] Start: 08-15-2022 Registered Referred [facility] [employer] [facility] Start: 08-08-2022 End: 08-08-2022 Departed Referred [facility] [employer] Start: 08-08-2022 Registered Referred [facility] [employer] Start: 08-01-2022 End: 08-01-2022 ambulatory [facility] Work Phone: Start: 08-01-2022 End: 08-01-2022 Departed Referred [facility] [employer] Start: 08-01-2022 Registered Referred [facility] [employer] Start: 07-25-2022 End: 07-25-2022 ambulatory [facility] Work Phone: Start: 07-25-2022 End: 07-25-2022 [facility] [facility] Start: 07-25-2022 [facility] Start: 07-19-2022 End: 07-19-2022 Departed Referred [facility] Start: 07-19-2022 [facility] [employer] [facility] Start: 07-18-2022 End: 07-18-2022 ambulatory [facility] Work Phone: Start: 07-18-2022 End: 07-18-2022 Departed Referred [facility] [employer] [facility] Start: 07-18-2022 [facility] Start: 07-11-2022 End: 07-11-2022 ambulatory [facility] Work Phone: Start: 07-11-2022 End: 07-11-2022 Departed Referred [facility] [employer] Start: 07-11-2022 Registered [facility] [employer] Start: 07-04-2022 End: 07-04-2022 Departed Referred [facility] [employer] [facility] Start: 07-04-2022 [facility] Start: 06-27-2022 End: 06-27-2022 ambulatory [facility] Work Phone: Start: 06-27-2022 End: 06-27-2022 Departed Referred [facility] Start: 06-27-2022 [facility] Start: 06-20-2022 End: 06-20-2022 ambulatory [facility] Work Phone: Start: 06-20-2022 End: 06-20-2022 Departed Referred [facility] [employer] Start: 06-20-2022 Registered [facility] [employer] Start: 06-13-2022 End: 06-13-2022 ambulatory [facility] Work Phone: Start: 06-13-2022 End: 06-13-2022 Departed Referred [facility] Start: 06-13-2022 [facility] [employer] Start: 06-06-2022 End: 06-06-2022 [facility] [employer] Start: 06-06-2022 [facility] [employer] Start: 05-30-2022 End: 05-30-2022 ambulatory [facility] Work Phone: Start: 05-30-2022 End: 05-30-2022 [facility] [employer] [facility] Start: 05-23-2022 End: 05-23-2022 ambulatory [facility] Work Phone: Start: 05-23-2022 End: 05-23-2022 Departed Referred [facility] Start: 05-23-2022 Registered Referred [facility] [employer] Start: 05-20-2022 End: 05-20-2022 Emergency department patient visit Abelardo Rios Work Phone: [facility] ED Comment on above: Dislodged gastrostom y tube (Primary Dx) Start: 05-16-2022 End: 05-16-2022 Departed Referred [facility] Start: 05-16-2022 Registered Referred [facility] [employer] Start: 05-09-2022 End: 05-09-2022 ambulatory [facility] Work Phone: Start: 05-09-2022 End: 05-09-2022 [facility] [employer] [facility] Start: 05-09-2022 [facility] Start: 05-03-2022 End: 05-03-2022 ambulatory [facility] Work Phone: Start: 05-03-2022 End: 05-03-2022 Departed Referred [facility] Start: 05-03-2022 Registered [facility] Start: 04-26-2022 End: 04-26-2022 Departed Referred [facility] Start: 04-26-2022 Registered [facility] [employer] Start: 04-18-2022 End: 04-18-2022 ambulatory [facility] Work Phone: Start: 04-18-2022 End: 04-18-2022 Departed Referred [facility] Start: 04-18-2022 Registered Ref[facility] [employer] Start: 04-14-2022 End: 04-14-2022 ambulatory [facility] Work Phone: Start: 04-14-2022 End: 04-14-2022 Departed Referred [facility] [employer] [facility] Start: 04-14-2022 Registered [facility] [employer] Start: 04-11-2022 End: 04-11-2022 ambulatory [facility] Work Phone: Start: 04-11-2022 End: 04-11-2022 Departed Referred [facility] [employer] [facility] Start: 04-11-2022 Registered [facility] [employer] Start: 04-04-2022 End: 04-04-2022 ambulatory [facility] Work Phone: Start: 04-04-2022 End: 04-04-2022 Departed Referred [facility] [employer] Start: 04-04-2022 Registered [facility] [employer] Start: 03-28-2022 End: 03-28-2022 ambulatory [facility] Work Phone: Start: 03-28-2022 End: 03-28-2022 Departed Referred [facility] [employer] [facility] Start: 03-28-2022 Registered [facility] Start: 03-21-2022 End: 03-21-2022 ambulatory [facility] Work Phone: Start: 03-21-2022 End: 03-21-2022 Departed Referred [facility] Start: 03-21-2022 Registered Ref[facility] [employer] Start: 03-14-2022 End: 03-14-2022 Departed Referred [facility] Start: 03-14-2022 [facility] [employer] Start: 2022 End: 2022 ambulatory [facility] Work Phone: Start: 2022 End: 2022 Departed Referred [facility] [employer] [facility] Start: 2022 [facility] Start: 02-28-2022 End: 02-28-2022 Departed Referred [facility] [employer] [facility] Start: 02-28-2022 Registered [facility] Start: 02-21-2022 End: 02-21-2022 ambulatory [facility] Work Phone: Start: 02-21-2022 End: 02-21-2022 [facility] [employer] [facility] Start: 02-21-2022 Reg[facility] Start: 02-14-2022 End: 02-14-2022 ambulatory [facility] Work Phone: Start: 02-14-2022 End: 02-14-2022 [facility] [employer] [facility] Start: 02-14-2022 Registered [facility] [employer] Start: 02-07-2022 End: 02-07-2022 ambulatory [facility] Work Phone: Start: 02-07-2022 End: 02-07-2022 Departed Referred [facility] Start: 02-07-2022 Registered [facility] Start: 01-31-2022 End: 01-31-2022 ambulatory [facility] Work Phone: Start: 01-31-2022 End: 01-31-2022 Departed Referred [facility] Start: 01-31-2022 Registered [facility] [employer] [facility] Start: 01-24-2022 End: 01-24-2022 ambulatory [facility] Work Phone: Start: 01-24-2022 End: 01-24-2022 [facility] Start: 01-24-2022 [facility] [employer] Start: 01-17-2022 End: 01-17-2022 [facility] [employer] [facility] Start: 01-17-2022 Registered [facility] [employer] [facility] Start: 01-10-2022 End: 01-10-2022 ambulatory [facility] Work Phone: Start: 01-10-2022 End: 01-10-2022 [facility] Start: 01-10-2022 [facility] Start: 01-04-2022 End: 01-04-2022 ambulatory [facility] Work Phone: Start: 01-04-2022 End: 01-04-2022 [facility] [employer] [facility] Start: 01-04-2022 Registered [facility] [employer] [facility] Start: 12-27-2021 End: 12-27-2021 ambulatory [facility] Work Phone: Start: 12-27-2021 End: 12-27-2021 [facility] [employer] [facility] Start: 12-27-2021 Registered Referred [facility] [employer] Start: 12-20-2021 End: 12-20-2021 ambulatory [facility] Work Phone: Start: 12-20-2021 End: 12-20-2021 Departed Referred [facility] [employer] Start: 12-20-2021 [facility] [employer] Start: 12-13-2021 End: 12-13-2021 Departed Referred [facility] [employer] Start: 12-13-2021 Registered [facility] Start: 12-06-2021 End: 12-06-2021 ambulatory [facility] Work Phone: Start: 12-06-2021 End: 12-06-2021 Departed Referred [facility] [employer] [facility] Start: 12-06-2021 Registered [facility] Start: 11-29-2021 End: 11-29-2021 ambulatory [facility] Work Phone: Start: 11-29-2021 End: 11-29-2021 Departed Referred [facility] [employer] Start: 11-29-2021 Registered [facility] Start: 11-22-2021 End: 11-22-2021 Departed Referred [facility] Start: 11-22-2021 Registered [facility] [place] [employer] [facility] Start: 11-15-2021 End: 11-15-2021 Departed Referred [facility] [place] [employer] [facility] Start: 11-15-2021 Registered Referred [facility] Start: 11-08-2021 End: 11-08-2021 Departed Ref[facility] Start: 10-25-2021 Registered [facility] Start: 10-18-2021 Registered Referred [facility] [employer] Start: 10-11-2021 Registered Referred [facility] [employer] Start: 10-04-2021 Registered Referred [facility] Start: 09-28-2021 End: 09-28-2021 Departed Referred [facility] [employer] Start: 09-28-2021 Registered Referred [facility] [employer] [facility] Start: 09-20-2021 End: 09-20-2021 Departed Referred [facility] Start: 09-20-2021 Registered Referred [facility] Start: 09-13-2021 End: 09-13-2021 Departed Referred [facility] [employer] [facility] Start: 09-13-2021 Registered Referred [facility] [employer] [facility] Start: 09-06-2021 End: 09-06-2021 Departed Referred [facility] [place] [employer] [facility] Start: 09-06-2021 Registered Referred [facility] Start: 08-30-2021 End: 08-30-2021 Departed Referred [facility] [employer] Start: 08-30-2021 Registered Referred [facility] Start: 08-23-2021 End: 08-23-2021 Departed Referred [facility] Start: 08-23-2021 Registered Referred [facility] [employer] [facility] Start: 08-18-2021 End: 08-18-2021 Departed Referred [facility] Start: 08-18-2021 Registered Referred [facility] [employer] Start: 08-16-2021 End: 08-16-2021 Departed Referred [facility] [employer] [facility] Start: 08-16-2021 Registered Referred [facility] Start: 08-09-2021 End: 08-09-2021 Departed Referred [facility] [employer] Start: 08-02-2021 End: 08-02-2021 Departed Referred [facility] [employer] Start: 08-02-2021 Registered Referred [facility] Start: 07-26-2021 End: 07-26-2021 Departed Referred [facility] Start: 07-26-2021 Registered Referred [facility] [employer] [facility] Start: 07-19-2021 End: 07-19-2021 Departed Referred [facility] Start: 07-19-2021 Registered Ref[facility] [employer] [facility] Start: 07-12-2021 End: 07-12-2021 Departed Referred [facility] Start: 07-05-2021 End: 07-05-2021 Departed Referred [facility] Start: 07-05-2021 Registered Referred [facility] Start: 06-28-2021 End: 06-28-2021 Departed Referred [facility] Start: 06-28-2021 Registered Ref[facility] [employer] [facility] Start: 06-21-2021 End: 06-21-2021 Departed Referred [facility] Start: 06-21-2021 Registered Referred [facility] Start: 06-14-2021 Registered Referred [facility] [employer] [facility] Start: 06-07-2021 End: 06-07-2021 Departed Referred [facility] Start: 06-07-2021 Registered Referred [facility] Start: 05-31-2021 End: 05-31-2021 Departed Referred [facility] [employer] [facility] Start: 05-31-2021 Registered Referred [facility] Start: 05-24-2021 End: 05-24-2021 Departed Referred [facility] [employer] Start: 05-17-2021 Registered Referred [facility] Start: 05-15-2021 End: 05-15-2021 Emergency department patient visit Timothy Burton DO Work Phone: [facility] ED Comment on above: PEG tube malfunction (HCC) (Primary Dx) Start: 05-14-2021 Registered [facility] Start: 05-10-2021 Registered Referred [facility] [employer] [facility] Start: 05-03-2021 Registered Referred [facility] [employer] [facility] Start: 04-26-2021 Registered Referred [facility] [employer] [facility] Start: 04-19-2021 Registered Referred [facility] [employer] [facility] Start: 04-12-2021 Registered Referred [facility] [facility] Start: 04-07-2021 Registered Referred [facility] [facility] Start: 03-19-2021 End: 03-24-2021 Evaluation and management of inpatient Brady Desai DO Work Phone: [facility] Comment on above: Respiratory syncytia l virus (RSV) (Primary Dx); Hypoxia Start: 03-18-2021 End: 03-18-2021 Emergency department patient visit [facility] Comment on above: Respiratory syncytia l virus (RSV) (Primary Dx); Hypoxia Start: 10-30-2020 End: 10-30-2020 Emergency department patient visit Bethany Clemons MD [facility] Comment on above: Feeding tube dysfunc tion, initial encounter (Primary Dx) Start: 09-22-2020 End: 09-22-2020 Emergency department patient visit Elizabeth Moura MD Work Phone: [facility] ED Comment on above: PEG tube malfunction (HCC) (Primary Dx) Start: 06-26-2020 End: 06-26-2020 Emergency department patient visit Abelardo Rios Work Phone: [facility] Comment on above: PEG tube malfunction (HCC) (Primary Dx) Start: 05-22-2019 End: 05-22-2019 Patient encounter procedure Jarvis Kendall MD Work Phone: [facility] Work Phone: Start: 05-22-2019 End: 05-22-2019 Pt evaluation Jarvis Kednall MD Work Phone: [facility] Work Phone: Start: 05-16-2019 End: 05-16-2019 Emergency department patient visit Elizabeth Moura MD Work Phone: [facility] Comment on above: Contusion of right h ip, initial encounter (Primary Dx) Start: 08-15-2018 Evaluation and management of inpatient UNKNOWN PROVIDER [facility] Start: 07-08-2018 Evaluation and management of inpatient JORDAN GEUBE [facility] Start: 01-02-2003 End: 01-02-2003 Patient encounter procedure Beni Vera Work Phone: [facility] Start: 01-02-2003 Results Only Beni Vera Work Phone: [facility] Procedures Date Procedure Procedure Detail Performing [...] dip stick/tabl et reagent auto microscopy Renard Amezquitahola [place] Start: 11-22-2023 Radiologic exam swal low function contrast study Renard Burgos Work Phone: Start: 10-02-2023 Comprehensive metabo lic panel Helen Toledo PA-C Work Phone: Start: 10-02-2023 Radiologic exam ches t single view Helen Toledo PA-C Work Phone: Start: 10-02-2023 Ecg routine ecg w/le ast 12 lds trcg only w/o i&r Helen Toledo PA-C Work Phone: Start: 10-02-2023 Ct head/brain w/o contrast material Helen Toledo PA-C Work Phone: Start: 01-30-2023 Urine culture Start: 05-20-2022 Perq replacement gtu be not req revj gstrst trc Dejah Hazel DO Work Phone: Start: 05-20-2022 Radiologic exam abdo men 1 view Dejah Ilir DO Work Phone: Start: 08-18-2021 Urine culture [...] EMDF, PT, BMP3M, PHOS3, MG3, CK3 #### [facility] [address] [place], [place] #### [id number] #### [facility] [address] [place] [address] Start: 07-27-2018 Microscopic examinat ion of blood, culture Comment on above: Order Comment: Speci men Source Comment:Blood Performed By: #### H EMDF, PT, BMP3M, PHOS3, MG3, CK3 #### [facility] [address] [place], [place] #### [id number] #### [facility] [address] [place] [address] Start: 07-19-2018 Microscopic examinat ion of blood, culture Comment on above: Order Comment: Speci men Source Comment:Blood Performed By: #### H EMDF, PT, BMP3M, PHOS3, MG3, CK3 #### [facility] [address] [place] [address] #### [id number] #### [facility] [address] [place] [address] Start: 01-02-2003 CONVERTED SURGICAL PATHOLOGY Beni Vera Work Phone: Urine culture NEGATED: Highlighted rowStart: 05-22-2019 End: 05-22-2019 Documentation of current medications Ana Stevenson LPN NEGATED: Highlighted rowStart: 05-22-2019 End: 05-22-2019 Smoking cessation education Ana Stevenson LPN Plan of Treatment Date Care Activity Detail Author Start: 2032 RSV Immunization for Adults (1 - 1-dose 75+ series) RSV Immunization for Adults (1 - 1-dose 75+ series) [facility] Start: 01-10-2027 DTaP/Tdap/Td vaccine (2 - Td or Tdap) DTaP/Tdap/Td vaccine (2 - Td or Tdap) [facility] Start: 01-10-2027 DTaP/Tdap/Td vaccine (2 - Td) DTaP/Tdap/Td vaccine (2 - Td) [facility] Work Phone: Start: 01-10-2027 DTaP/Tdap/Td Vaccine s (2 - Td or Tdap) DTaP/Tdap/Td Vaccines (2 - Td or Tdap) [facility] Start: 12-30-2024 Influenza vaccination Influenz a Vaccine (Season Ended) [facility] Start: 03-22-2024 Diabetes mellitus screening Diabetes Screening [facility] Start: 12-31-2023 COVID-19 Vaccine ( season) COVID-19 Vaccine ( season) [facility] Start: 12-31-2023 COVID-19 Vaccine ( season) COVID-19 Vaccine ( season) [facility] Start: 12-31-2023 COVID-19 Vaccine ( season) COVID-19 Vaccine ( season) [facility] Start: 12-31-2023 Influenza vaccination S [facility] Start: 01-30-2023 Bacteria identified in Urine by Culture Urine Culture [facility] Start: 01-30-2023 [facility] Start: 12-30-2022 COVID-19 Vaccine ( season) COVID-19 Vaccine ( season) [facility] Start: 2022 Pneumococcal 0-64 ye ars Vaccine (2 of 2 - PPSV23) Pneumococcal 0-64 years Vaccine (2 of 2 - PPSV23) [facility] Start: 2022 Pneumococcal 0-64 ye ars Vaccine (2 of 2) Pneumococcal 0-64 years Vaccine (2 of 2) [facility] Work Phone: Start: 2022 Pneumococcal Vaccine : 65+ Years (2 of 2 - PCV) Pneumococcal Vaccine: 65+ Years (2 of 2 - PCV) [facility] Start: 12-30-2021 Influenza vaccination Influenza Vacc ine (#1) [facility] [employer] Start: 12-30-2020 Influenza vaccination S [facility] Start: 12-31-2019 Influenza vaccination Flu vaccine (# 1) [facility] Work Phone: Start: 08-18-2019 A1C test (Diabetic o r Prediabetic) A1C test (Diabetic or Prediabetic) [facility] Work Phone: Start: 08-18-2019 HbA1c (Bld) [Mass fraction] A1C test (Diabetic or Prediabetic) [facility] Work Phone: Start: 08-18-2019 Hemoglobin A1c measurement A1C test (Diabetic or Prediabetic) [facility] Start: 05-22-2019 End: 05-22-2019 Appointment Appointment [facility] Work Phone: Start: 02-07-2019 Lipid panel Lipid screen [facility] Start: 02-07-2019 Lipid screen Lipid screen [facility] Work Phone: Start: 12-30-2018 Influenza vaccination Flu vaccine (# 1) [facility] Work Phone: Start: 01-10-2018 Pneumococcal Vaccine : 50+ Years (2 of 2 - PCV) Pneumococcal Vaccine: 50+ Years (2 of 2 - PCV) [facility] Start: 01-10-2018 Pneumococcal Vaccine : 65+ Years (2 - PCV) Pneumococcal Vaccine: 65+ Years (2 - PCV) [facility] Start: 2017 RSV Immunization age d 60 or older (1 - 1-dose 60+ series) RSV Immunization aged 60 or older (1 - 1-dose 60+ series) [facility] Start: 2007 Colon cancer screen colonoscopy Colon cancer screen colonoscopy [facility] Work Phone: Start: 2007 Screening for malign ant neoplasm of colon Colon cancer screen colonoscopy [facility] Work Phone: Start: 2007 Shingles Vaccine (1 of 2) Shingles Vaccine (1 of 2) [facility] Start: 2007 Zoster Vaccines (1 o f 2) Zoster Vaccines (1 of 2) [facility] Start: 2002 Screening for malign ant neoplasm of colon Colon cancer screen colonoscopy [facility] Start: 1976 Hepatitis A Vaccines (1 of 2 - Risk 2-dose series) Hepatitis A Vaccines (1 of 2 - Risk 2-dose series) [facility] Start: 1975 Hepatitis C screening Hepatitis C Sc reening [facility] Start: 1969 COVID-19 Vaccine (1) COVID-19 Vaccin e (1) [facility] Start: 1969 Depression Monitoring Depression Mon [facility] Start: 1969 Depression Screen Depression Screen [facility] Start: 1962 COVID-19 Vaccine (1) COVID-19 Vaccin e (1) [facility] Start: 1957 COVID-19 Vaccine (#1) COVID-19 Vacci ne (#1) [facility] Start: 1957 Annual wellness visit Medicare Initial Physical (IPPE) [facility] Start: 1957 Hepatitis B Vaccines (1 of 3 - 3-dose series) Hepatitis B Vaccines (1 of 3 - 3-dose series) [facility] Start: 1957 Lipid panel Lipid Panel [facility] Start: 1957 Screening for malign ant neoplasm of colon [facility] Basic metabolic 2000 panel - Serum or Plasma Basic Metabolic Panel Lab Routine Daily until discontinued starting 03/23/2021, 2 completed [facility] Work Phone: Comment on above: Daily until disconti nued starting 03/23/2021, 2 completed CBC W Auto Different ial panel - Blood CBC Auto Differential Lab Routine Daily until discontinued starting 03/23/2021, 2 completed [employer] Work Phone: Comment on above: Daily until disconti nued starting 03/23/2021, 2 completed End: 06-24-2024 CT Chest WO contrast [employer] Work Phone: Comment on above: Once for 1 Occurrenc es starting 06/24/2024 until 06/24/2024 Culture, Blood 2 Culture, Blood 2 Microbiology STAT 03/19/2021 6:26 PM EST [employer] Work Phone: End: 03-20-2021 Culture, Respiratory Culture, Respiratory Microbiology Routine One Time for 1 Occurrences starting 03/20/2021 until 03/20/2021 [employer] Work Phone: Comment on above: One Time for 1 Occur rences starting 03/20/2021 until 03/20/2021 EKG 12 Lead EKG 12 Lead ECG STAT 03/18/2021 3:20 PM EST [employer] Work Phone: Feeding Tube Feeding Tube Pro cedures Routine 10/30/2020 2:22 PM EDT [employer] Work Phone: End: 09-22-2020 FL WATER SOLUBLE ENEMA W OR WO KUB FL WATER SOLUBLE ENEMA W OR WO KUB Imaging STAT Once for 1 Occurrences starting 09/22/2020 until 09/22/2020 [employer] Phone: Comment on above: Once for 1 Occurrenc es starting 09/22/2020 until 09/22/2020 End: 03-23-2021 Glucose [Mass/volume] in Serum or Plasma POCT GLUCOSE Point of Care Testing Routine Now Then Every 6hr for 7 Occurrences starting 03/21/2021 until 03/23/2021 [employer] Work Phone: Comment on above: Now Then Every 6hr f or 7 Occurrences starting 03/21/2021 until 03/23/2021 High Frequency Chest Wall Oscillation (HFCWO) High Frequency Chest Wall Oscillation (HFCWO) Respiratory Care Routine (respiratory use only) until discontinued starting 03/22/2021 [facility] Work Phone: Comment on above: 08,1999 (respirato ry use only) until discontinued starting 03/22/2021 End: 03-20-2021 Legionella Antigen, Urine Legionella Antigen, Urine Microbiology Routine One Time for 1 Occurrences starting 03/20/2021 until 03/20/2021 [employer] Work Phone: Comment on above: One Time for 1 Occur rences starting 03/20/2021 until 03/20/2021 Microscopic examinat ion of blood, culture Culture, Blood Microbiology STAT 03/19/2021 6:26 PM EST [employer] Work Phone: End: 03-20-2021 Microscopic observation [Identifier] in Unspecified specimen by Gram stain Gram Stain Microbiology Routine Once for 1 Occurrences starting 03/20/2021 until 03/20/2021 [employer] Work Phone: Comment on above: Once for 1 Occurrenc es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 Consulting - Rafa Michel MD Primary Care Physician - No primary care provider on file. [facility] # - [id number] Date of Admission - 03/19/2021 3:52 PM Hospital Day - 2 Subjective/Events Past 24 hours/ROS On 6L supplemental oxygen, does not use at F. He reports feeling a little better today. [...] 66 y.o. - 1955 Room Number - 154/4651 N - [id number] [facility] # - [id number] Date of Admission - 03/19/2021 3:52 PM [...] Date 03/21/21 0000 - 03/21/21 2359 Shift 0511-7273 4095-8148 0755-1471 24 Hour Total INTAKE NG/GT(mL/kg) 542(6.4) 542(6.4) [...] included. Hospitalist Progress Note 03/21/2021 9:41 AM [phone]: Please page me for patient care issues. [phone]: Please page [facility] night Hospitalist for any issues. Subjective: Admit Date: 03/19/2021 PCP: No primary care provider on file. Room#: 465/6481 Interval History: Lethargic, hard to arouse this [...] Trach PEG 07/13/2018. Presented from [facility]F to [facility] ED with worsening SOB. Evaluated in ED [...] loss Fluid Accumulation: No significant fluid accumulation Database Support Strength: Not Performed Estimated Daily Nutrient Needs: Energy (kcal): 5600-5217 (25-30 kcal/kg IBW); Weight Used for Energy Requirements: Colver (86.2 kg) Protein (g): 86-103 (1.0-1.2 g protein/kg IBW); Weight Used for Protein Requirements: Colver (86.2 kg) Fluid (ml/day): per MD. At facility receivin mL free water daily from EN and flushes; Method Used for Fluid Requirements: Other (Comment) Nutrition Related Findings: Massimo score= 15. No skin breakdown or edema noted. S/p Trach/PEG, per SERVICE LINE COORDINATOR note, does not take any food, drink [...] on 03/02/21, October weight= 185.5# on 01/29/21) Colver Body Weight: 190 lbs; % Colver Body Weight 97.8 % BMI: 23.9 BMI [...] Nutrition Contact: 2430 Speech Language Pathology Facility/Department: [facility]ICAL BEDSIDE SWALLOW EVALUATION NAME: [...] states that she is the only family [phone] Images from the original note were not included. Hospitalist Progress Note 03/20/2021 9:58 AM [phone]: Please page me for patient care issues. [phone]: Please page [facility] night Hospitalist for any issues. Subjective: Admit Date: 03/19/2021 PCP: No primary care provider on file. Room#: 360/3817 Interval History: He continues to have cough [...] 03/18/2021 Mr. Hooper was seen at the [facility] emergency department for low oxygen levels. Patient [...] cannot be sent through Care Everywhere.Viral Infections (Prydeinig)documented in this encounter [facility] Work Phone: Evaluation note Diagnosis PEG tube malfunction (HCC)- Primary Mechanical complication of gastrostomy [facility] Work Phone: Evaluation note* Diagnosis Feeding tube dysfunction, initial encounter- Primary documented in this encounter [facility] Work Phone: Evaluation note* Diagnosis Respiratory syncytial virus (RSV)- Primary Hypoxia Hypoxemia documented in this encounter [facility] Work Phone: Evaluation note* Diagnosis Respiratory syncytial virus (RSV)- Primary Hypoxia Hypoxemia documented in this encounter [facility] Work Phone: Evaluation note* Diagnosis PEG tube malfunction (HCC)- Primary Mechanical complication of gastrostomy documented in this encounter [facility] Work Phone: Evaluation note* Diagnosis Contusion of right hip, initial encounter- Primary documented in this encounter [facility] Work Phone: Evaluation noteNo assessment information available [facility] Work Phone: Evaluation note* Diagnosis Dyspnea, unspecified type- Primary [facility]* Diagnosis Dysphagia, oropharyngeal phase Feeding difficulties Feeding difficulties and mismanagement documented in this encounter [facility]* Diagnosis Dysphagia, oropharyngeal phase- Primary Feeding difficulties Feeding difficulties and mismanagement Dysphagia, oropharyngeal phase Feeding difficulties Feeding difficulties and mismanagement documented [facility] Diagnosis Dislodged gastrostomy tube- Primary [facility]* Diagnosis Chronic cough Cough [facility]* Diagnosis Chronic cough- Primary Cough Chronic cough Cough [facility]* Attachments The following attachments cannot be sent through Care Everywhere. * PEG (Percutaneous Endoscopic Gastrostomy): Post-op (Prydeinig) documented in this [facility] Work Phone: Hospital Discharge instructions* Attachments The following attachments cannot be sent through Care Everywhere. * Feeding Tube: General Info (Prydeinig) documented in this [facility] Work Phone: Hospital Discharge instructions* Instructions* Mary Cochran PA-C - 05/15/2021 Please return to the ED if you have any new or worsening symptoms. documented in this [facility] Work Phone: Hospital Discharge instructions* Attachments The following attachments cannot be sent through Care Everywhere. * Hip Pain (Prydeinig) * Contusion (Prydeinig) documented in this [facility] Work Phone: Hospital Discharge instructions* Attachments The following attachments cannot be sent through Care Everywhere. * Shortness of Breath (Dyspnea) Discharge Instructions (Prydeinig) documented in this [facility] Discharge instructions* Attachments The following attachments cannot be sent through Care Everywhere. * How to Care for Your Gastrostomy Tube (Prydeinig) [facility] (narrative)No reason for referral information availableWPark[facility] Work Phone: Reason for visit Narrative* Imaging (Routine) - Closed Specialty Diagnoses / Procedures Referred By Soo t Referred To Contact Radiology Diagnoses Chronic cough Procedures CT chest wo IV contrast Rashaad Smith APRN - NP [address] [address] Phone: tel: fax: Referral ID Status Reason Start Date Expiration Date Visits Re quested Visits Authorized [id number] Closed 06/12/2024 06/12/2025 1 1 [facility] Summary Purpose Family History No Family History Records FoundNo Family History Records FoundThere may be information available, but it has not been provided by the sender.No Family History Records FoundNo Family History Records FoundNo Family History Records FoundNo Family History Records Found Advance Directives No Advanced Directives Records FoundDocuments on File Type Date Recorded Patient Development Architect Expl anation ACP-Advance Directive ACP-Advance Directive 08/07/2018 1:53 PM ACP-Power of Parts Runner Latest Code Status on File Code Status Date Activated Date Inactivated Comments Full Code 08/15/2018 8:27 PM 08/22/2018 4:31 PM Full Code 08/15/2018 8:12 PM 08/15/2018 8:27 PM Full Code 07/08/2018 8:28 PM 08/01/2018 2:39 PM Documents on File Type Date Recorded Patient Development Architect Expl anation ACP-Advance Directive ACP-Power of Parts Runner ACP-Advance Directive 08/07/2018 1:53 PM Latest Code Status on File Code Status Date Activated Date Inactivated Comments Full Code 03/20/2021 12:17 AM Full Code 08/15/2018 8:27 PM 08/22/2018 4:31 PM Documents on File Type Date Recorded Patient Development Architect Expl anation ACP-Advance Directive ACP-Power of Parts Runner ACP-Advance Directive 03/26/2021 9:48 AM ACP-Advance Directive 08/07/2018 1:53 PM Latest Code Status on File Code Status Date Activated Date Inactivated Comments Full Code 03/20/2021 12:17 AM 03/24/2021 3:23 PM Documents on File Type Date Recorded Patient Development Architect Expl anation Advance Directives and Livin g Will Advance Directives and Livin g Will 08/07/2018 1:53 PM Power of Parts Runner Documents on File Type Date Recorded Patient Development Architect Expl anation Advance Directives and Livin g Will 05/23/2022 10:48 AM Advance Directives and Livin g Will 03/19/2021 Documents on File Type Date Recorded Patient Development Architect Expl anation Advance Directives and Living Will 03/19/2021 Documents on File Type Date Recorded Patient Development Architect Expl 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 * Feeding Tube: General Info (Prydeinig) documented in this encounter Assessments Diagnosis PEG [...] Complaint and Reason for Visit Chief Complaint LONGTERM LABWORK LONGTERM LAB WORK LONGTERM LABWORK LONGTERM LABWORK LONGTERM LABWORK LONGTERM LAB WORK LONGTERM LABWORK LONGTERM LABWORK LONGTERM LABWORK LONGTERM LABWORK LONGTERM LABWORK LONGTERM LAB WORK LONGTERM LABWORK NURING HOME LABWORK LONGTERM LABWORK LONGTERM LAB WORK LONGTERM LABWORK Chief Complaint LONGTERM LABWORK LONGTERM LABWORK LONGTERM LABWORK LONGTERM LAB WORK LONGTERM LABWORK NURING HOME LABWORK LONGTERM LABWORK LONGTERM LAB WORK LONGTERM LABWORK LONGTERM LABWORK LONGTERM LAB WORK LONGTERM LAB WORK LONGTERM BLOOD WORK LONGTERM LABWORK LONGTERM LAB WORK Chief Complaint LONGTERM LABWORK LONGTERM LABWORK LONGTERM LAB WORK LONGTERM LABWORK NURING HOME LABWORK LONGTERM LABWORK LONGTERM LAB WORK LONGTERM LABWORK LONGTERM LABWORK LONGTERM LAB WORK LONGTERM LAB WORK LONGTERM BLOOD WORK LONGTERM LABWORK LABWORK LABWORK LONGTERM LAB WORK Chief Complaint LONGTERM LABWORK LONGTERM LAB WORK LONGTERM LABWORK NURING HOME LABWORK LONGTERM LABWORK LONGTERM LAB WORK LONGTERM LABWORK LONGTERM LABWORK LONGTERM LAB WORK LONGTERM LAB WORK LONGTERM BLOOD WORK LONGTERM LABWORK LABWORK LABWORK LONGTERM LAB WORK Chief Complaint LONGTERM LAB WOR K LONGTERM LABWORK NURING HOME LABWORK LONGTERM LABWORK LONGTERM LAB WORK LONGTERM LABWORK LONGTERM LABWORK LONGTERM LAB WORK LONGTERM LAB WORK LONGTERM BLOOD WORK LONGTERM LABWORK LABWORK LABWORK LONGTERM LAB WORK Chief Complaint LONGTERM LAB WOR K LONGTERM LABWORK NURING HOME LABWORK LONGTERM LABWORK LONGTERM LAB WORK LONGTERM LABWORK LONGTERM LABWORK LONGTERM LAB WORK LONGTERM LAB WORK LONGTERM BLOOD WORK LONGTERM LABWORK LABWORK LABWORK LONGTERM LAB WORK LABWORK LONGTERM LABWORK Chief Complaint LONGTERM LABWORK NURING HOME LABWORK LONGTERM LABWORK LONGTERM LAB WORK LONGTERM LABWORK LONGTERM LABWORK LONGTERM LAB WORK LONGTERM LAB WORK LONGTERM BLOOD WORK LONGTERM LABWORK LABWORK LABWORK LONGTERM LAB WORK LABWORK LONGTERM LABWORK LONGTERM LAB WORK Chief Complaint LONGTERM BLOOD W ORK LONGTERM LABWORK LONGTERM LABWORK LABWORK LABWORK LONGTERM LAB WORK LABWORK LONGTERM LABWORK LONGTERM LAB WORK LABWORK LONGTERM LAB WORK LONGTERM LAB WORK LABWORK LONGTERM LAB WORK Chief Complaint LONGTERM BLOOD W ORK LONGTERM LABWORK LONGTERM LABWORK LABWORK LABWORK LONGTERM LAB WORK LABWORK LONGTERM LABWORK LONGTERM LAB WORK LABWORK LONGTERM LAB WORK LONGTERM LAB WORK LABWORK LONGTERM LAB WORK LABWORK Chief Complaint LABWORK LABWORK LONGTERM LAB WORK LABWORK LONGTERM LABWORK LONGTERM LAB WORK LABWORK LONGTERM LAB WORK LONGTERM LAB WORK LABWORK LONGTERM LAB WORK LABWORK LONGTERM LAB WORK Chief Complaint LABWORK LONGTERM LAB WORK LABWORK LONGTERM LABWORK LONGTERM LAB WORK LABWORK LONGTERM LAB WORK LONGTERM LAB WORK LABWORK LONGTERM LAB WORK LABWORK LONGTERM LAB WORK LONGTERM LABWORK Chief Complaint LABWORK LONGTERM LABWORK LONGTERM LAB WORK LABWORK LONGTERM LAB WORK LONGTERM LAB WORK LABWORK LONGTERM LAB WORK LABWORK LONGTERM LAB WORK LONGTERM LABWORK LONGTERM LABWORK LABWORK LONGTERM LAB WORK Chief Complaint LONGTERM LAB WOR K LABWORK LONGTERM LAB WORK LONGTERM LAB WORK LABWORK LONGTERM LAB WORK LABWORK LONGTERM LAB WORK LONGTERM LABWORK LONGTERM LABWORK LABWORK LONGTERM LAB WORK LONGTERM LAB WORK Chief Complaint LONGTERM LAB WOR K LONGTERM LAB WORK LABWORK LONGTERM LAB WORK LABWORK LONGTERM LAB WORK LONGTERM LABWORK LONGTERM LABWORK LABWORK LONGTERM LAB WORK LONGTERM LAB WORK LABWORK LONGTERM LAB WORK Chief Complaint LONGTERM LAB WOR K LABWORK LONGTERM LAB WORK LABWORK LONGTERM LAB WORK LONGTERM LABWORK LONGTERM LABWORK LABWORK LONGTERM LAB WORK LONGTERM LAB WORK LABWORK LONGTERM LAB WORK LONGTERM LAB WORK Chief Complaint LONGTERM LAB WOR K LABWORK LONGTERM LAB WORK LONGTERM LABWORK LONGTERM LABWORK LABWORK LONGTERM LAB WORK LONGTERM LAB WORK LABWORK LONGTERM LAB WORK LABWORK LONGTERM LAB WORK LONGTERM LAB WORK LONGTERM LABWORK LONGTERM LABWORK Chief Complaint LABWORK LONGTERM LAB WORK LONGTERM LABWORK LONGTERM LABWORK LABWORK LONGTERM LAB WORK LONGTERM LAB WORK LABWORK LONGTERM LAB WORK LABWORK LONGTERM LAB WORK LONGTERM LAB WORK LONGTERM LABWORK LABWORK LONGTERM LABWORK Chief Complaint LABWORK LONGTERM LAB WORK LONGTERM LAB WORK LABWORK LONGTERM LAB WORK LABWORK LONGTERM LAB WORK LONGTERM LAB WORK LONGTERM LABWORK LABWORK LONGTERM LABWORK LONGTERM LAB WORK Chief Complaint LONGTERM LAB WOR K LABWORK LONGTERM LAB WORK LONGTERM LAB WORK LONGTERM LABWORK LABWORK LONGTERM LABWORK LONGTERM LAB WORK LABWORK LABWORK LABWORK LABWORK LONGTERM LABWORK LONGTERM LAB WORK LABWORK LABWORK Chief Complaint LABWORK LONGTERM LAB WORK LONGTERM LAB WORK LONGTERM LABWORK LABWORK LONGTERM LABWORK LONGTERM LAB WORK LABWORK LABWORK LABWORK LABWORK LONGTERM LABWORK LONGTERM LAB WORK LABWORK LABWORK LONGTERM LABWORK Chief Complaint LONGTERM LAB WOR K LONGTERM LAB WORK LONGTERM LABWORK LABWORK LONGTERM LABWORK LONGTERM LAB WORK LABWORK LABWORK LABWORK LABWORK LONGTERM LABWORK LONGTERM LAB WORK LABWORK LABWORK LONGTERM LABWORK LONGTERM LAB WORK Chief Complaint LONGTERM LABWORK LABWORK LONGTERM LABWORK LONGTERM LAB WORK LABWORK LABWORK LABWORK LABWORK LONGTERM LABWORK LONGTERM LAB WORK LABWORK LABWORK LONGTERM LABWORK LONGTERM LAB WORK LONGTERM LABWORK LONGTERM LAB WORK Chief Complaint LABWORK LONGTERM LABWORK LONGTERM LAB WORK LABWORK LABWORK LABWORK LABWORK LONGTERM LABWORK LONGTERM LAB WORK LABWORK LABWORK LONGTERM LABWORK LONGTERM LAB WORK LONGTERM LABWORK LABWORK LONGTERM LAB WORK Chief Complaint LABWORK LABWORK LABWORK LABWORK LONGTERM LABWORK LONGTERM LAB WORK LABWORK LABWORK LONGTERM LABWORK LONGTERM LAB WORK LONGTERM LABWORK LABWORK LONGTERM LAB WORK LABWORK LONGTERM LABWORK Chief Complaint LABWORK LONGTERM LABWORK LONGTERM LAB WORK LABWORK LABWORK LONGTERM LABWORK LONGTERM LAB WORK LONGTERM LABWORK LABWORK LONGTERM LAB WORK LABWORK LONGTERM LABWORK LABWORK LABWORK Chief Complaint LONGTERM LABWORK LONGTERM LAB WORK LABWORK LABWORK LONGTERM LABWORK LONGTERM LAB WORK LONGTERM LABWORK LABWORK LONGTERM LAB WORK LABWORK LONGTERM LABWORK LABWORK LABWORK LABWORK LONGTERM LAB WORK LONGTERM LAB WORK LONGTERM LABWORK Chief Complaint LONGTERM LABWORK LONGTERM LAB WORK LABWORK LABWORK LONGTERM LABWORK LONGTERM LAB WORK LONGTERM LABWORK LABWORK LONGTERM LAB WORK LABWORK LONGTERM LABWORK LABWORK LABWORK LABWORK LONGTERM LAB WORK LONGTERM LAB WORK LONGTERM LABWORK LONGTERM LABWORK Chief Complaint LABWORK LABWORK LONGTERM LABWORK LONGTERM LAB WORK LONGTERM LABWORK LABWORK LONGTERM LAB WORK LABWORK LONGTERM LABWORK LABWORK LABWORK LABWORK LONGTERM LAB WORK LONGTERM LAB WORK LONGTERM LABWORK LONGTERM LABWORK LONGTERM LAB WORK LABWORK Chief Complaint LONGTERM LABWORK LONGTERM LAB WORK LONGTERM LABWORK LABWORK LONGTERM LAB WORK LABWORK LONGTERM LABWORK LABWORK LABWORK LABWORK LONGTERM LAB WORK LONGTERM LAB WORK LONGTERM LABWORK LONGTERM LABWORK LONGTERM LAB WORK LABWORK LONGTERM LABWORK Chief Complaint LONGTERM LABWORK LABWORK LONGTERM LAB WORK LABWORK LONGTERM LABWORK LABWORK LABWORK LABWORK LONGTERM LAB WORK LONGTERM LAB WORK LONGTERM LABWORK LONGTERM LABWORK LONGTERM LAB WORK LABWORK LONGTERM LABWORK LONGTERM LAB WORK Chief Complaint LABWORK LONGTERM LABWORK LABWORK LABWORK LABWORK LONGTERM LAB WORK LONGTERM LAB WORK LONGTERM LABWORK LONGTERM LABWORK LONGTERM LAB WORK LABWORK LONGTERM LABWORK LONGTERM LAB WORK LONGTERM LABWORK LONGTERM LAB WORK Chief Complaint LABWORK LONGTERM LABWORK LONGTERM LAB WORK LONGTERM LABWORK LONGTERM LAB WORK LONGTERM LABWORK LONGTERM LABWORK LONGTERM LABWORK LONGTERM LABWORK LONGTERM LAB WORK LABWORK LABWORK LONGTERM LABWORK Chief Complaint LONGTERM LABWORK LONGTERM LAB WORK LONGTERM LABWORK LONGTERM LABWORK LONGTERM LABWORK LONGTERM LABWORK LONGTERM LAB WORK LABWORK LABWORK LONGTERM LABWORK LABWORK LONGTERM LAB WORK LONGTERM LAB WORK Chief Complaint LONGTERM LABWORK LONGTERM LABWORK LONGTERM LABWORK LONGTERM LABWORK LONGTERM LAB WORK LABWORK LABWORK LONGTERM LABWORK LABWORK LONGTERM LAB WORK LONGTERM LAB WORK LONGTERM LABWORK LONGTERM LABWORK LONGTERM LAB WORK LONGTERM LAB WORK Chief Complaint LONGTERM LABWORK LONGTERM LABWORK LONGTERM LABWORK LONGTERM LAB WORK LABWORK LABWORK LONGTERM LABWORK LABWORK LONGTERM LAB WORK LONGTERM LAB WORK LONGTERM LABWORK LONGTERM LABWORK LONGTERM LAB WORK LONGTERM LAB WORK Chief Complaint LONGTERM LABWORK LONGTERM LABWORK LONGTERM LABWORK LONGTERM LAB WORK LABWORK LABWORK LONGTERM LABWORK LABWORK LONGTERM LAB WORK LONGTERM LAB WORK LONGTERM LABWORK LONGTERM LABWORK LONGTERM LAB WORK LONGTERM LAB WORK LONGTERM LABWORK LABWORK Chief Complaint LONGTERM LAB WOR K LABWORK LABWORK LONGTERM LABWORK LABWORK LONGTERM LAB WORK LONGTERM LAB WORK LONGTERM LABWORK LONGTERM LABWORK LONGTERM LAB WORK LONGTERM LAB WORK LONGTERM LABWORK LABWORK LONGTERM LAB WORK LABWORK Chief Complaint LONGTERM LAB WOR K LABWORK LABWORK LONGTERM LABWORK LABWORK LONGTERM LAB WORK LONGTERM LAB WORK LONGTERM LABWORK LONGTERM LABWORK LONGTERM LAB WORK LONGTERM LAB WORK LONGTERM LABWORK LABWORK LONGTERM LAB WORK LABWORK LONGTERM LABWORK LONGTERM LAB WORK Chief Complaint LABWORK LABWORK LONGTERM LABWORK LABWORK LONGTERM LAB WORK LONGTERM LAB WORK LONGTERM LABWORK LONGTERM LABWORK LONGTERM LAB WORK LONGTERM LAB WORK LONGTERM LABWORK LABWORK LONGTERM LAB WORK LABWORK LONGTERM LABWORK LONGTERM LAB WORK LABWORK\ Chief Complaint LABWORK LONGTERM LABWORK LABWORK LONGTERM LAB WORK LONGTERM LAB WORK LONGTERM LABWORK LONGTERM LABWORK LONGTERM LAB WORK LONGTERM LAB WORK LONGTERM LABWORK LABWORK LONGTERM LAB WORK LABWORK LONGTERM LABWORK LONGTERM LAB WORK LABWORK\ LABWORK Chief Complaint LONGTERM LAB WOR K LONGTERM LAB WORK LONGTERM LABWORK LONGTERM LABWORK LONGTERM LAB WORK LONGTERM LAB WORK LONGTERM LABWORK LABWORK LONGTERM LAB WORK LABWORK LONGTERM LABWORK LONGTERM LAB WORK LABWORK\ LABWORK LONGTERM LAB WORK LABWORK Chief Complaint LONGTERM LAB WOR K LONGTERM LABWORK LONGTERM LABWORK LONGTERM LAB WORK LONGTERM LAB WORK LONGTERM LABWORK LABWORK LONGTERM LAB WORK LABWORK LONGTERM LABWORK LONGTERM LAB WORK LABWORK\ LABWORK LONGTERM LAB WORK LABWORK LABWORK Chief Complaint LONGTERM LABWORK LONGTERM LABWORK LONGTERM LAB WORK LONGTERM LAB WORK LONGTERM LABWORK LABWORK LONGTERM LAB WORK LABWORK LONGTERM LABWORK LONGTERM LAB WORK LABWORK\ LABWORK LONGTERM LAB WORK LABWORK LONGTERM LABWORK LABWORK Chief Complaint LONGTERM LAB WOR K LONGTERM LABWORK LABWORK LONGTERM LAB WORK LABWORK LONGTERM LABWORK LONGTERM LAB WORK LABWORK\ LABWORK LONGTERM LAB WORK LABWORK LONGTERM LABWORK LABWORK LONGTERM LABWORK LONGTERM LAB WORK LABWORK LONGTERM LAB WORK Chief Complaint LONGTERM LABWORK LABWORK LONGTERM LAB WORK LABWORK LONGTERM LABWORK LONGTERM LAB WORK LABWORK\ LABWORK LONGTERM LAB WORK LABWORK LONGTERM LABWORK LABWORK LONGTERM LABWORK LONGTERM LAB WORK LABWORK LONGTERM LAB WORK LABWORK Chief Complaint LONGTERM LAB WOR K LABWORK LONGTERM LABWORK LONGTERM LAB WORK LABWORK\ LABWORK LONGTERM LAB WORK LABWORK LONGTERM LABWORK LABWORK LONGTERM LABWORK LONGTERM LAB WORK LABWORK LONGTERM LAB WORK LABWORK LABWORK Chief Complaint LONGTERM LAB WOR K LABWORK\ LABWORK LONGTERM LAB WORK LABWORK LONGTERM LABWORK LABWORK LONGTERM LABWORK LONGTERM LAB WORK LABWORK LONGTERM LAB WORK LABWORK LABWORK LABWORK LABWORK LABWORK Chief Complaint LABWORK\ LABWORK LONGTERM LAB WORK LABWORK LONGTERM LABWORK LABWORK LONGTERM LABWORK LONGTERM LAB WORK LABWORK LONGTERM LAB WORK LABWORK LABWORK LABWORK LABWORK LABWORK LABWORK Chief Complaint LONGTERM LAB WOR K LABWORK LONGTERM LABWORK LABWORK LONGTERM LABWORK LONGTERM LAB WORK LABWORK LONGTERM LAB WORK LABWORK LABWORK LABWORK LABWORK LABWORK LABWORK LABWORK Chief Complaint LONGTERM LABWORK LABWORK LONGTERM LABWORK LONGTERM LAB WORK LABWORK LONGTERM LAB WORK LABWORK LABWORK LABWORK LABWORK LABWORK LABWORK LABWORK LONGTERM LAB WORK LABWORK Chief Complaint LABWORK LONGTERM LABWORK LONGTERM LAB WORK LABWORK LONGTERM LAB WORK LABWORK LABWORK LABWORK LABWORK LABWORK LABWORK LABWORK LONGTERM LAB WORK LABWORK LABWORK LABWORK Chief Complaint LABWORK LONGTERM LAB WORK LABWORK LABWORK LABWORK LABWORK LABWORK LABWORK LABWORK LONGTERM LAB WORK LABWORK LABWORK LABWORK LONGTERM LAB WORK LONGTERM LAB WORK Chief Complaint LONGTERM LAB WOR K LABWORK LABWORK LABWORK LABWORK LABWORK LABWORK LABWORK LONGTERM LAB WORK LABWORK LABWORK LABWORK LONGTERM LAB WORK LONGTERM LAB WORK LABWORK Chief Complaint LONGTERM LABWORK LONGTERM LAB WORK LONGTERM LAB WORK LONGTERM LABWORK LABWORK LONGTERM LAB WORK LABWORK LONGTERM LABWORK LONGTERM LAB WORK LABWORK\ LABWORK LONGTERM LAB WORK LABWORK LONGTERM LABWORK LABWORK LONGTERM LABWORK Chief Complaint LONGTERM LABWORK LONGTERM LAB WORK LONGTERM LAB WORK LONGTERM LABWORK LABWORK LONGTERM LAB WORK LABWORK LONGTERM LABWORK LONGTERM LAB WORK LABWORK\ LABWORK LONGTERM LAB WORK LABWORK LONGTERM LABWORK LABWORK LONGTERM LABWORK LONGTERM LAB WORK Chief Complaint Admit Date LONGTERM LAB WORK March 11 5:00am LONGTERM LAB WORK March 18 5:00am LABWORK March 25, 2024 5:00am LABWORK April 01, 2024 5 :00am LONGTERM LAB WORK April 08, 2024 5:00am LABWORK April 15, 2024 5:00am LABWORK April 22, 2024 5:00am LONGTERM LAB WORK April 29 5:00am LABWORK May 06, 2024 5: 00am LONGTERM LAB WORK May 13, 2024 4:00am LABWORK May 20, 2024 5 :00am LONGTERM LAB WORK May 27, 2024 5:00am LABWORK June 03, 2024 5 :00am LABWORK June 07, 2024 5 :00am LONGTERM LAB WORK June 10 5:00am LABWORK June 17, 2024 5:00am LONGTERM LAB WORK June 24 5:00am Chief Complaint Admit Date LABWORK April 01, 2024 5 :00am LONGTERM LAB WORK April 08, 2024 5:00am LABWORK April 15, 2024 5:00am LABWORK April 22, 2024 5:00am LONGTERM LAB WORK April 29 5:00am LABWORK May 06, 2024 5: 00am LONGTERM LAB WORK May 13, 2024 4:00am LABWORK May 20, 2024 5 :00am LONGTERM LAB WORK May 27, 2024 5:00am LABWORK June 03, 2024 5 :00am LABWORK June 07, 2024 5 :00am LONGTERM LAB WORK June 10 5:00am LABWORK June 17, 2024 5:00am LONGTERM LAB WORK June 24 5:00am LONGTERM LAB WORK June 27 2:00am LONGTERM LAB WORK July 01, 2024 4: 00am LABWORK July 08, 2024 5:0 0am LONGTERM LAB WORK July 16, 2024 4 :00am Chief Complaint Admit Date LONGTERM LAB WORK April 08, 2024 5:00am LABWORK April 15, 2024 5:00am LABWORK April 22, 2024 5:00am LONGTERM LAB WORK April 29 5:00am LABWORK May 06, 2024 5: 00am LONGTERM LAB WORK May 13, 2024 4:00am LABWORK May 20, 2024 5 :00am LONGTERM LAB WORK May 27, 2024 5:00am LABWORK June 03, 2024 5 :00am LABWORK June 07, 2024 5 :00am LONGTERM LAB WORK June 10 5:00am LABWORK June 17, 2024 5:00am LONGTERM LAB WORK June 24 5:00am LONGTERM LAB WORK June 27 2:00am LONGTERM LAB WORK July 01, 2024 4: 00am LABWORK July 08, 2024 5:0 0am LONGTERM LAB WORK July 15, 2024 5 :00am LONGTERM LAB WORK July 16, 2024 4 :00am Chief Complaint Admit Date LABWORK April 15, 2024 5:00am LABWORK April 22, 2024 5:00am LONGTERM LAB WORK April 29 5:00am LABWORK May 06, 2024 5: 00am LONGTERM LAB WORK May 13, 2024 4:00am LABWORK May 20, 2024 5 :00am LONGTERM LAB WORK May 27, 2024 5:00am LABWORK June 03, 2024 5 :00am LABWORK June 07, 2024 5 :00am LONGTERM LAB WORK June 10 5:00am LABWORK June 17, 2024 5:00am LONGTERM LAB WORK June 24 5:00am LONGTERM LAB WORK June 27 2:00am LONGTERM LAB WORK July 01, 2024 4: 00am LABWORK July 08, 2024 5:0 0am LONGTERM LAB WORK July 15, 2024 5 :00am LONGTERM LAB WORK July 16, 2024 4 :00am LONGTERM LAB WORK July 22, 2024 5 :00am Chief Complaint Admit Date LABWORK April 22, 2024 5:00am LONGTERM LAB WORK April 29 5:00am LABWORK May 06, 2024 5: 00am LONGTERM LAB WORK May 13, 2024 4:00am LABWORK May 20, 2024 5 :00am LONGTERM LAB WORK May 27, 2024 5:00am LABWORK June 03, 2024 5 :00am LABWORK June 07, 2024 5 :00am LONGTERM LAB WORK June 10 5:00am LABWORK June 17, 2024 5:00am LONGTERM LAB WORK June 24 5:00am LONGTERM LAB WORK June 27 2:00am LONGTERM LAB WORK July 01, 2024 4: 00am LABWORK July 08, 2024 5:0 0am LONGTERM LAB WORK July 15, 2024 5 :00am LONGTERM LAB WORK July 16, 2024 4 :00am LONGTERM LAB WORK July 22, 2024 5 :00am LABWORK July 29, 2024 5:0 0am Chief Complaint Admit Date LONGTERM LAB WORK May 13, 2024 4:00am LABWORK May 20, 2024 5 :00am LONGTERM LAB WORK May 27, 2024 5:00am LABWORK June 03, 2024 5 :00am LABWORK June 07, 2024 5 :00am LONGTERM LAB WORK June 10 5:00am LABWORK June 17, 2024 5:00am LONGTERM LAB WORK June 24 5:00am LONGTERM LAB WORK June 27 2:00am LONGTERM LAB WORK July 01, 2024 4: 00am LABWORK July 08, 2024 5:0 0am LONGTERM LAB WORK July 15, 2024 5 :00am LONGTERM LAB WORK July 16, 2024 4 :00am LONGTERM LAB WORK July 22, 2024 5 :00am LABWORK July 29, 2024 5:0 0am LONGTERM LAB WORK August 05, 2024 5: 00am LONGTERM LAB WORK August 12, 2024 5 :00am Chief Complaint Admit Date LABWORK May 20, 2024 5 :00am LONGTERM LAB WORK May 27, 2024 5:00am LABWORK June 03, 2024 5 :00am LABWORK June 07, 2024 5 :00am LONGTERM LAB WORK June 10 5:00am LABWORK June 17, 2024 5:00am LONGTERM LAB WORK June 24 5:00am LONGTERM LAB WORK June 27 2:00am LONGTERM LAB WORK March 3rd, 2025 4: 00am LABWORK July 08, 2024 5:0 0am LONGTERM LAB WORK July 15, 2024 5 :00am LONGTERM LAB WORK July 16, 2024 4 :00am LONGTERM LAB WORK July 22, 2024 5 :00am LABWORK July 29, 2024 5:0 0am LONGTERM LAB WORK August 05, 2024 5: 00am LONGTERM LAB WORK August 12, 2024 5 :00am LABWORK August 26, 2024 5:0 0am Chief Complaint Admit Date LABWORK June 03, 2024 5 :00am LABWORK June 07, 2024 5 :00am LONGTERM LAB WORK June 10 5:00am LABWORK June 17, 2024 5:00am LONGTERM LAB WORK June 24 5:00am LONGTERM LAB WORK June 27 2:00am LONGTERM LAB WORK July 01, 2024 4: 00am LABWORK July 08, 2024 5:0 0am LONGTERM LAB WORK July 15, 2024 5 :00am LONGTERM LAB WORK July 16, 2024 4 :00am LONGTERM LAB WORK July 22, 2024 5 :00am LABWORK July 29, 2024 5:0 0am LONGTERM LAB WORK August 05, 2024 5: 00am LONGTERM LAB WORK August 12, 2024 5 :00am LONGTERM LAB WORK August 19, 2024 4 :00am LONGTERM LAB WORK August 23, 2024 5 :00am LABWORK August 26, 2024 5:0 0am LABWORK September 09, 2024 5:00a m Additional Source Comments (unrecognized sect ion and content) No Status Records FoundNo Status Records FoundNo Status Records FoundNo Status Records FoundNo Status Records FoundNo Status Records Found INFORMATION SOURCE (unrecogn ized section and content) DATE CREATED AUTHOR 09[facility]04/2018 [facility] DATE CREATED AUTHOR AUTHOR'S ORGANIZ ATION 10/06/2018 [facility] DATE CREATED AUTHOR AUTHOR'S ORGANIZ ATION 03/26/2021 [facility] DATE CREATED AUTHOR AUTHOR'S ORGANIZ ATION 05/21/2021 [facility] DATE CREATED AUTHOR AUTHOR'S ORGANIZ ATION 06/28/2024 [facility] [employer] [facility] DATE CREATED AUTHOR AUTHOR'S ORGANIZ ATION 10/11/2024 [facility] Source Comments (unrecognize d section and content) In the event this informatio n is protected by the Federal Confidentiality of Alcohol and Drug Abuse Patient Records regulations: The Federal rules restrict any use of the information to criminally investigate or prosecute any alcohol or drug abuse patient.[facility] Reason for Visit (unrecogniz ed section [...] 0900 0754 (Given - Provider: Tra Pearl, KUSHAL) 0914 (Given - Provider: Jovana Armstrong RN) [...] Solorio RN)0639 (New Bag - Provider: Nancy Solorio RN)1140 (Stopped - Provider: Jovana Armstrong RN)1448 (New Bag - Provider: Jovana Armstrong RN)1935 (Stopped - Provider: Nancy Solorio, KUSHAL)2149 (New Bag - Provider: Nancy Solorio RN) 0200 (Stopped - Provider: Nancy Solorio RN)0640 [...] intake. 0754 (Given - Provider: Tra Pearl RN)220 (Given - Provider: Nancy Solorio, KUSHAL) 0914 (Given - Provider: Jovana Armstrong, KUSHAL) [...] RN)2204 (Given - Provider: Nancy Solorio RN) 0921 (Given - Provider: Jovana Armstrong, KUSHAL)214 (Given - Provider: Nancy Solorio, KUSHAL) 0914 (Given - Provider: Sandeep Thompson, KUSHAL)2099 (Due) enoxaparin (LOVENOX) injection 30 mg 30 mg, SubCUTAneous, 2 TIMES DAILY, First dose on Mon03/19/21 at 2323, Pharmacy to dose if renal insufficiency present. 0753 (Given - Provider: Tra Pearl RN)220 (Given - Provider: Nancy Solorio RN) 0940 (Given - Provider: Jovana Armstrong, KUSHAL)214 (Given - Provider: Nancy Solorio, KUSHAL) 0914 [...] Armstrong RN) 0914 (Given - Provider: Sandeep Thompson, KUSAHL) ipratropium-albuterol (DUONEB) nebulizer solution 1 ampule 1 ampule, Inhalation, EVERY 4 HOURS WHILE AWAKE, First dose on 03/20/21 at 1200 0953 (Given - Provider: Amelie Taylor [facility])1356 (Given - Provider: Amelie Taylor [facility])1648 (Given - Provider: Amelie Taylor [facility])2212 (Given - Provider: Claire Lagos [facility]) 0841 (Given - Provider: Ana Cabrera [facility])1213 (Given - Provider: Ana Cabrera [facility])1622 (Given - Provider: Ana Cabrera E[facility])2037 (Given - Provider: Perla Loyola [facility]) 1020 (Given - Provider: Gabriel Soares [facility])1200 (Due)1600 (Due)2000 (Due) lansoprazole (PREVACID SOLUTAB) disintegrating tablet 30 mg 30 mg, PEG Tube, DAILY BEFORE BREAKFAST, First dose on 03/21/21 at 0700, Do not crush or break. 0754 (Given - Provider: Tra Pearl RN) 0639 (Given - Provider: Nancy Solorio RN) 0641 (Given - Provider: Nancy Solorio RN) methylPREDNISolone sodium (SOLU-MEDROL) injection 40 mg (CANCELED) 40 mg, IntraVENous, EVERY 12 HOURS, First dose (after last modification) on 03/21/21 at 1445 0137 (Given - Provider: Francesca Cortez RN)1458 (Given - Provider: Tra Pearl RN) 0405 (Given - Provider: Nancy Solorio RN)1448 (Given - Provider: Jovana Armstrong RN) 0245 (Given - Provider: Nancy Solorio RN) predniSONE (DELTASONE) tablet 40 mg 40 mg, Oral, DAILY, First dose on 03/24/21 at 0930 0914 (Given - Provider: Sandeep Thompson, KUSHAL) risperiDONE (RISPERDAL) tablet 0.5 mg 0.5 mg, Oral, NIGHTLY, First dose (after last modification) on 03/22/21 at 2100 2209 (Given - Provider: Nancy Solorio RN) 215 (Given - Provider: Nancy Solorio RN) 2100 (Due) sodium chloride (Inhalant) 3 % nebulizer solution 4 mL 4 mL, Nebulization, 2 TIMES DAILY, First dose on Mon03/19/21 at 2323 1003 (Given - Provider: Amelie Taylor [facility])2215 (Given - Provider: Claire Lagos [facility]) 0841 (Given - Provider: Ana Cabrera E[facility])2051 (Given - Provider: Perla Loyola [facility]) 1200 (Due - Provider: Gabriel Soares [facility])2100 (Due) sodium chloride flush 0.9 % injection [...] Nancy Solorio RN) 1055 (Given - Provider: oJvana Armstrong RN)2150 (Given - Provider: Nancy Solorio RN) 0918 (Given - Provider: Sandeep Thompson, KUSHAL)2100 (Due) tamsulosin (FLOMAX) capsule 0.4 mg 0.4 mg, Oral, DAILY, First dose on 03/20/21 at 0900, Do not crush or break. 0754 (Given - Provider: Tra Pearl RN) 0914 (Given - Provider: Jovana Armstrong RN) 0914 (Given - Provider: Sandeep Thompson, [...] Francesca Cortez, KUSHAL)0407 (Stopped - Provider: Francesca Cortez, KUSHAL) PRN Medication Order 03/22/2021 03/23/2021 03/24/2021 0.9 [...] infusion 50 mL/hr, IntraVENous, Continuous, Starting on 10/02/23 at 1035 1114 (New Bag - Prov ider: Eloisa Alfaro RN)1419 (Stopped - Provider: Mami Lantigua RN) PRN Medication Order 09/30/2023 10/01/2023 10/02/2023 sodium chloride 0.9 % infusion 5-250 mL/hr, IntraVENous, PRN, if patient receiving piggyback infusions and maintenance fluids are not ordered OR KVO fluids to protect IV site / prevent frequent line interruptions / long duration, Starting on 10/02/23 at 1034, For piggyback infusion, administer at [...] Status Dates Renard Burgos Attending Provider Active Race Board Attendant Relationship Specialty Start Date End Date Renard Burgos [address] [place] [phone] PCP - General Internal Medicine 10/16/23 Race Board Attendant Relationship Specialty Start Date End Date Renard Burgos [address] [place] [phone] PCP - General Internal Medicine 10/16/23 Race Board Attendant Relationship Specialty Start Date End Date Renard Burgos [address] [place] [phone] PCP - General Internal Medicine 10/16/23 Race Board Attendant Relationship Specialty Start Date End Date KatRenard easton [address] [facility] [address] [place] [phone] PCP - General Internal Medicine 10/16/23 Team [...] Provider Active Sta rt: September 09, 2024 Race Board Attendant Relationship Specialty Start Date End Date Renard Burgos [address] [phone] PCP - General Internal Medicine 10/16/23 Team [...] 19, 2024 End: August 19, 2024 Renard Aliriohola [place] Referring Provider Active Sta rt: August [...] GILL Attending Provider Active Sta rt: September 24, 2024 Team Status: Inactive Member Role Status Dates Renard Burgos GILL Attending Provider Active Sta rt: September 09, [...] BE BASED ON THE PRIMARY CLINICAL RECORDS. [employer] provides no warranty or guarantee of the accuracy or completeness of information in this document.
--- OUTSIDE RECORDS SUMMARY | 2024-10-14 04:50 | XMS RPT_ITS | CCD ---
Author Organization [facility] Care Team Providers Care 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 Name Role Phone JORDAN OREILLY Attending Unavailable PROVIDER, UNKNOWN Referring Unavailable Nathanael Cazares Primary Care Unavailable PROVIDER, UNKNOWN Referring Unavailable Nathanael Cazares Primary Care Unavailable Jaime Lindquist Attending Unavailable Unavailable Primary Care Provider UnavailBethany Navarrete Primary Care Provider Jarvis Kendall MD Unavailable [phone] Bethany Russell MD Primary Care Provider Unavailable Primary Care Provider Unavailclifton Latif MD, Jenn Edwin Primary Care Provider [phone] Unavailable Primary Care Provider UnavailRenard Mccann Primary [...] tablet via peg tube as needed ACETAMINOPHEN [id number] Ana Stevenson WARNING ANALYST albuterol 0.83 mg/ml inhalation solution (1 source) beta2-Adrenergic Agonist Start: 03-19-2021 albut veronica (PROVENTIL) nebulizer solution 2.5 mg albuterol 0.833 mg/ml / ipratropium bromide 0.167 mg/ml inhalation solution (18 sources) Anticholinergic, beta2-Adrenergic Agonist Start: 03-20-2021 ipratropium-alb utero l (DUONEB) nebulizer solution 1 ampule Start: 05-22-2019 IPRATROPIUM-AL BUTEROL 0.5-2.5 (3) MG/3ML SOLN 3ml via nebulizer every 4 hours as needed IPRATROPIUM-ALBUTEROL [id number] Ana Peoplesch WARNING ANALYST Start: 08-22-2018 take 3 mL by inhalat ion every four hours ipratropium-albuterol (DUONEB) 0.5-2.5 (3) MG/3ML SOLN nebulizer solution Inhale 3 mLs into the lungs every 4 hours 360 mL 0 08/22/2018 Active aspirin 81 mg chewable tablet (9 sources) Platelet Aggregation Inhibitor, Nonsteroidal Anti-inflammatory Drug Start: 05-22-2019 ASPIRIN ADULT LOW STRENGTH 81 MG CHEW one tablet via peg tube daily ASPIRIN [id number] Ana Diesch WARNING ANALYST Start: 08-23-2018 aspirin 81 MG chewable tablet 1 tablet by Per NG tube route daily 30 tablet 3 08/23/2018 Active atorvastatin 40 mg oral tablet (9 sources) HMG-CoA Reductase Inhibitor Start: 05-22-2019 ATORVASTATIN CALCIUM 40 MG TABS one tablet via peg tube daily ATORVASTATIN CALCIUM [id number] Ana Diesch WARNING ANALYST Start: 08-22-2018 atorvastatin ( LIPITOR) 40 MG tablet 1 tablet by Per NG tube route nightly 30 tablet 3 08/22/2018 Active castor oil 0.788 mg/mg / ugandan balsam 0.087 mg/mg topical ointment (7 sources) Standardized Chemical Allergen Start: 08-22-2018 Balsam [place] O il (VENELEX) OINT ointment Apply topically [...] 250mg via peg tube twice daily CLOZAPINE [id number] [facility] Start: 08-22-2018 cloZAPine (AILYN ZARIL) 100 MG tablet 1 tablet by Per G Tube route 2 times daily 30 tablet 3 08/22/2018 Active cloZAPine (Cloza ril) 100 MG tablet Take 225 mg by mouth 2 times daily. Active take 1 tablet by [facility] once daily cloZAPine (Clozaril) 50 MG tablet Take 50 mg by mouth daily. Active docusate sodium 10 mg/ml ora l suspension (18 sources) Start: 05-22-2019 DOCU 50 MG/5ML LIQD 5ml via peg tube twice daily DOCUSATE SODIUM [id number] [facility] Start: 08-22-2018 docusate (COLA CE) 50 MG/5ML liquid 10 mLs by Per NG tube route 2 times daily 0 08/22/2018 Active take 1 capsule by mo [facility] twice daily docusate sodium (Colace) 100 MG [...] one tablet via peg tube nightly MELATONIN [id number] Ana Stevenson WARNING ANALYST Start: 08-22-2018 melatonin 3 MG TABS tablet [...] needed. 0 08/23/2018 Active polyethylene glycol 3350 12753 mg powder for oral solution (1 source) [...] Sig (Normalized) Sig (Original) barium sulfate (Varibar [place], Varibar Honey) 40 % suspension 5 mL [...] SUPP every 24 hours as needed BISACODYL [id number] Ana Diesch WARNING ANALYST Start: 05-22-2019 BISACODYL EC 5 MG TBEC one tablet via peg tube daily as needed BISACODYL [id number] [facility] chlorhexidine gluconate 1.2 mg/ml mouthwash (10 sources) Start: 05-22-2019 PERIDEX 0.12 % SOLN 15ml twice daily CHLORHEXIDINE GLUCONATE [id number] Ana Adhere2Carech WARNING ANALYST chlorhexidine (P eridex) 0.12 % solution Use 15 mL in the mouth or throat if needed for wound care. Active cholecalciferol 1000 unt oral tablet (16 sources) Vitamin D Start: 05-22-2019 VITAMIN D3 25 MCG (1000 UT) TABS one tablet via peg tube daily CHOLECALCIFEROL [id number] Ana Diesch WARNING ANALYST cholecalciferol (SM Vitamin D3) 25 MCG (1000 UT) tablet Take 1,000 Units by mouth daily. Active dextromethorphan hydrobromide 2 mg/ml / guaiFENesin 20 mg/ml oral solution (1 source) Uncompetitive T-yzfycj-R-aspartate Receptor Antagonist, Sigma-1 Agonist Start: 05-22-2019 ROBITUSSIN PEAK COLD DM SYRP 5ml via peg tube every 4 hours as needed for cough DEXTROMETHORPHAN-GUAIFENESIN SYRP [id number] Ana Stevenson LPN magnesium hydroxide 240 mg/ml oral suspension (1 source) Start: 05-22-2019 MILK OF MAGNESIA CONCENTRATE SUSP 30ml via peg tube every 24 hours MAGNESIUM HYDROXIDE SUSP [id number] Ana Stevenson LPN methylPREDNISolone 40 mg injection (2 sources) Corticosteroid Start: 03-20-2021 End: 03-24-2021 methylPREDNISolone sodium (SOLU-MEDROL) injection 40 mg MULTIPLE VITAMINS-MINERALS (1 source) Start: 05-22-2019 MENS MULTIVITAMIN TABS one tablet via peg tube daily MULTIPLE VITAMINS-MINERALS [id number] Ana Stevenson LPN POLYETHYLENE GLYCOL 1450 (1 source) Start: 05-22-2019 POLYETHYLENE GLYCOL 1450 POW D 17 grams via peg tube twice daily POLYETHYLENE GLYCOL 1450 [id number] Ana Stevenson LPN SENNOSIDES-DOCUSATE SODIUM (1 source) Start: 05-22-2019 SENNA PLUS 8.6-50 MG TABS on e tablet via peg tube daily SENNOSIDES-DOCUSATE SODIUM [id number] Ana Stevenson LPN 50 ml sodium chloride [...] Onset: 9 07-11-2018 Other aftercare (2 sources) shelter (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; Translations: [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] Onset: 9 Episodic Other aftercare (2 sources) Other clinical pharmacy specialist (current) drug therapy; Translations: [Other care home (current) drug therapy] Onset: 5 Episodic Other aftercare (1 source) 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; Translations: [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] Onset: 5 Episodic [...] 9 07-23-2018 Episodic Other aftercare (1 source) 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 [place], [place], [phone] Basophils/100 WBC (Bld) 0.5 % Normal 0-1 [facility] Comment on above: Order Comment: 109-1 Performed By: #### L 100.0100 ####[facility] [address] [place], [address] Eosinophils/100 WBC (Bld) 0.9 % Normal 0-5 [facility] Comment on above: Order Comment: 109-1 Performed By: #### L 100.0100 ####[facility] [address] [place], [address] Erythrocyte distribution width (RBC) [Ratio] 13.2 % Normal 11.6-14.6 [facility] Comment on above: Order Comment: 109-1 Performed By: #### L 100.0100 ####[facility] [address] [place], [address] Hematocrit (Bld) [Volume fraction] 40.8 % Normal 40-54 [facility] Comment on above: Order Comment: 109-1 Performed By: #### L 100.0100 ####[facility] [address] [place], [address] Hemoglobin (Bld) [Mass/Vol] 13.8 g/dL Normal 13.0-16.5 [facility] Comment on above: Order Comment: 109-1 Performed By: #### L 100.0100 ####[facility] [address] [place], [address] IG% 0.200 Normal 0.0-0.9 [facility] Comment on above: Order Comment: 109-1 Result Comment: IG% - Immature Granulocytes (promyelocytes, myelocytes andmetamyelocytes) > 1% indicates that a LEFT SHIFT is Present. Performed By: #### L 100.0100 ####[facility] [address] [place], [address] Lymphocytes/100 WBC (Bld) 27.2 % Normal 19-41 [facility] Comment on above: Order Comment: 109-1 Performed By: #### L 100.0100 ####[facility] [address] [place], [address] MCH (RBC) [Entitic mass] 30.0 pg Normal 27.0-32.0 [facility] Comment on above: Order Comment: 109-1 Performed By: #### L 100.0100 ####[facility] [address] [place], [address] MCHC (RBC) [Mass/Vol] 33.8 g/dL Normal 32-36 [facility] Comment on above: Order Comment: 109-1 Performed By: #### L 100.0100 ####[facility] [address] [place], [address] MCV (RBC) [Entitic vol] 88.7 fL Normal 80-94 [facility] Comment on above: Order Comment: 109-1 Performed By: #### L 100.0100 ####[facility] [address] [place], [address] Monocytes/100 WBC (Bld) 8.4 % Normal 0-10 [facility] Comment on above: Order Comment: 109-1 Performed By: #### L 100.0100 ####[facility] [address] [place], [address] Neutrophils/100 WBC (Bld) 62.8 % Normal 47-70 [facility] Comment on above: Order Comment: 109-1 Performed By: #### L 100.0100 ####[facility] [address] [place], [address] Nucleated RBC (Bld) [#/Vol] 0 10*3/uL Normal 0-5 [facility] Comment on above: Order Comment: 109-1 Performed By: #### L 100.0100 ####[facility] [address] [place], [address] Platelet mean volume (Bld) [Entitic vol] 11.2 fL Normal 6.2-12.0 [facility] Comment on above: Order Comment: 109-1 Performed By: #### L 100.0100 ####[facility] [address] [place], [address] Platelets (Bld) [#/Vol] 214 10*3/uL Normal 150-450 [facility] Comment on above: Order Comment: 109-1 Performed By: #### L 100.0100 ####[facility] [address] [place], [address] RBC (Bld) [#/Vol] 4.60 10*6/uL Normal 4.6-6.2 [facility] Comment on above: Order Comment: 109-1 Performed By: #### L 100.0100 ####[facility] [address] [place], [address] RDW SD 43.0 fl Normal 35.1-43.9 [facility] Comment on above: Order Comment: 109-1 Performed By: #### L 100.0100 ####[facility] [address] [place], [address] WBC (Bld) [#/Vol] 8.1 10*3/uL Normal 4.4-11.0 [facility] Comment on above: Order Comment: 109-1 Performed By: #### L 100.0100 ####[facility] [address] [place], [address] CBC W/Diff, Automatedon 06-0 2-2025 Absolute Lymph 3.13 X10 3/uL Normal 0.83-4.51 [facility] Comment on above: Order Comment: 109-1 Performed By: #### L 100.0100 ####[facility] [address] [place], [address] Absolute Neut 5.6 X10 3/uL Normal 2.0-7.7 [facility] Comment on above: Order Comment: 109-1 Performed By: #### L 100.0100 ####[facility] [address] [place], [address] Basophils/100 WBC (Bld) 0.6 % Normal 0-1 [facility] Comment on above: Order Comment: 109-1 Performed By: #### L 100.0100 ####[facility] [address] [place], [address] Eosinophils/100 WBC (Bld) 0.7 % Normal 0-5 [facility] Comment on above: Order Comment: 109-1 Performed By: #### L 100.0100 ####[facility] [address] [place], [address] Erythrocyte distribution width (RBC) [Ratio] 13.0 % Normal 11.6-14.6 [facility] Comment on above: Order Comment: 109-1 Performed By: #### L 100.0100 ####[facility] [address] [place], [address] Hematocrit (Bld) [Volume fraction] 46.9 % Normal 40-54 [facility] Comment on above: Order Comment: 109-1 Performed By: #### L 100.0100 ####[facility] [address] [place], [address] Hemoglobin (Bld) [Mass/Vol] 15.3 g/dL Normal 13.0-16.5 [facility] Comment on above: Order Comment: 109-1 Performed By: #### L 100.0100 ####[facility] [address] [place], [address] IG% 0.300 Normal 0.0-0.9 [facility] Comment on above: Order Comment: 109-1 Result Comment: IG% - Immature Granulocytes (promyelocytes, myelocytes andmetamyelocytes) > 1% indicates that a LEFT SHIFT is Present. Performed By: #### L 100.0100 ####[facility] [address] [place], [address] Lymphocytes/100 WBC (Bld) 31.7 % Normal 19-41 [facility] Comment on above: Order Comment: 109-1 Performed By: #### L 100.0100 ####[facility] [address] [place], [address] MCH (RBC) [Entitic mass] 29.7 pg Normal 27.0-32.0 [facility] Comment on above: Order Comment: 109-1 Performed By: #### L 100.0100 ####[facility] [address] [place], [address] MCHC (RBC) [Mass/Vol] 32.6 g/dL Normal 32-36 [facility] Comment on above: Order Comment: 109-1 Performed By: #### L 100.0100 ####[facility] [address] [place], [address] MCV (RBC) [Entitic vol] 91.1 fL Normal 80-94 [facility] Comment on above: Order Comment: 109-1 Performed By: #### L 100.0100 ####[facility] [address] [place], [address] Monocytes/100 WBC (Bld) 10.4 % High 0-10 [facility] Comment on above: Order Comment: 109-1 Performed By: #### L 100.0100 ####[facility] [address] [place], [address] Neutrophils/100 WBC (Bld) 56.3 % Normal 47-70 [facility] Comment on above: Order Comment: 109-1 Performed By: #### L 100.0100 ####[facility] [address] [place], [address] Nucleated RBC (Bld) [#/Vol] 0 10*3/uL Normal 0-5 [facility] Comment on above: Order Comment: 109-1 Performed By: #### L 100.0100 ####[facility] [address] [place], [address] Platelet mean volume (Bld) [Entitic vol] 11.7 fL Normal 6.2-12.0 [facility] Comment on above: Order Comment: 109-1 Performed By: #### L 100.0100 ####[facility] [address] [place], [address] Platelets (Bld) [#/Vol] 208 10*3/uL Normal 150-450 [facility] Comment on above: Order Comment: 109-1 Performed By: #### L 100.0100 ####[facility] [address] [place], [address] RBC (Bld) [#/Vol] 5.15 10*6/uL Normal 4.6-6.2 [facility] Comment on above: Order Comment: 109-1 Performed By: #### L 100.0100 ####[facility] [address] [place], [address] RDW SD 42.7 fl Normal 35.1-43.9 [facility] Comment on above: Order Comment: 109-1 Performed By: #### L 100.0100 ####[facility] [address] [place], [address] WBC (Bld) [#/Vol] 9.9 10*3/uL Normal 4.4-11.0 [facility] Comment on above: Order Comment: 109-1 Performed By: #### L 100.0100 ####[facility] [address] [place], [address] Absolute lymphocyte countOrd ered By: Renard Burgos on 09-24-2024 Lymphocytes Auto (Unsp spec) [#/Vol] 1.97 10*3/uL 0.83-4.51 [facility] Absolute neutrophil countOrd ered By: Renard Burgos on 09-24-2024 Neutrophils (Bld) [#/Vol] 6.8 10*3/uL 2.0-7.7 [facility] Automated blood erythrocyte countOrdered By: Renard Burgos on 09-24-2024 RBC (Bld) [#/Vol] 4.48 10*6/uL Low 4.6-6.2 [facility] Comment on above: Order Comment: 109 Performed By: #### L 100.0100 ####[facility] [address] [place], [place], [address] Automated blood hematocrit ( percentage)Ordered By: Renard Burgos on 09-24-2024 Hematocrit (Bld) [Volume fraction] 40.4 % Normal 40-54 [facility] Comment on above: Order Comment: 109 Performed By: #### L 100.0100 ####[facility] [address] [place], [address] Automated lymphocyte count a s percentage of total leukocytesOrdered By: Renadr Burgos on 09-24-2024 Lymphocytes/100 WBC Auto (Unsp spec) 20.5 % 19-41 [facility] Basophil percentageOrdered B y: Renard Burgos on 09-24-2024 Basophils/100 WBC (Bld) 0.5 % Normal 0-1 [facility] Comment on above: Order Comment: 109 Performed By: #### L 100.0100 ####[facility] [address] [place], [address] CBC W/Diff, Automatedon 08-30 Absolute Lymph 1.97 X10 3/uL Normal 0.83-4.51 [facility] Comment on above: Order Comment: 109 Performed By: #### L 100.0100 ####[facility] [address] [place], [address] Absolute Neut 6.8 X10 3/uL Normal 2.0-7.7 [facility] Comment on above: Order Comment: 109 Performed By: #### L 100.0100 ####[facility] [address] [place], [address] IG% 0.300 Normal 0.0-0.9 [facility] Comment on above: Order Comment: 109 Result Comment: IG% - Immature Granulocytes (promyelocytes, myelocytes andmetamyelocytes) > 1% indicates that a LEFT SHIFT is Present. Performed By: #### L 100.0100 ####[facility] [address] [place], [address] Lymphocytes/100 WBC (Bld) 20.5 % Normal 19-41 [facility] Comment on above: Order Comment: 109 Performed By: #### L 100.0100 ####[facility] [address] [place], [address] Nucleated RBC (Bld) [#/Vol] 0 10*3/uL Normal 0-5 [facility] Comment on above: Order Comment: 109 Performed By: #### L 100.0100 ####[facility] [address] [place], [address] RDW SD 42.9 fl Normal 35.1-43.9 [facility] Comment on above: Order Comment: 109 Performed By: #### L 100.0100 ####[facility] [address] [place], [address] Eosinophil percentageOrdered By: Renard Burgos on 09-24-2024 Eosinophils/100 WBC (Bld) 0.5 % Normal 0-5 [facility] Comment on above: Order Comment: 109 Performed By: #### L 100.0100 ####[facility] [address] [place], [address] Erythrocyte distribution wid th ratioOrdered By: Renard Burgos on 09-24-2024 Erythrocyte distribution width (RBC) [Ratio] 13.1 % Normal 11.6-14.6 [facility] Comment on above: Order Comment: 109 Performed By: #### L 100.0100 ####[facility] [address] [place], [place], [address] Erythrocyte distribution wid th standard deviationOrdered By: Renard Burgos on 09-24-2024 Erythrocyte distribution width (RBC) [Ratio] 42.9 fl 35.1-43.9 [facility] Hemoglobin measurementOrdere d By: Renard Burgos on 09-24-2024 Hemoglobin (Bld) [Mass/Vol] 13.4 g/dL Normal 13.0-16.5 [facility] Comment on above: Order Comment: 109 Performed By: #### L 100.0100 ####[facility] [address] [place], [address] Immature granulocytes/100 WB C Auto (Bld)Ordered By: Renard Burgos on 09-24-2024 Immature granulocytes/100 WBC (Bld) 0.300 % 0.0-0.9 [facility] Comment on above: IG% - Immature Granu locytes (promyelocytes, myelocytes and metamyelocytes) > 1% indicates that a LEFT SHIFT is Present. MCV (mean corpuscular volume ) determinationOrdered By: Renard Burgos on 09-24-2024 MCV (RBC) [Entitic vol] 90.2 fL Normal 80-94 [facility] Comment on above: Order Comment: 109 Performed By: #### L 100.0100 ####[facility] [address] [place], [address] Mean corpuscular hemoglobin (MCH) determinationOrdered By: Renard Burgos on 09-24-2024 MCH (RBC) [Entitic mass] 29.9 pg Normal 27.0-32.0 [facility] Comment on above: Order Comment: 109 Performed By: #### L 100.0100 ####[facility] [address] [place], [address] Mean corpuscular hemoglobin concentration (MCHC) determinationOrdered By: Renard Burgos on 09-24-2024 MCHC (RBC) [Mass/Vol] 33.2 g/dL Normal 32-36 [facility] Comment on above: Order Comment: 109 Performed By: #### L 100.0100 ####[facility] [address] [place], [address] Mean platelet volume determi nationOrdered By: Renard Burgos on 09-24-2024 Platelet mean volume (Bld) [Entitic vol] 11.3 fL Normal 6.2-12.0 [facility] Comment on above: Order Comment: 109 Performed By: #### L 100.0100 ####[facility] [address] [place], [address] Monocyte percentageOrdered B y: Renard Burgos on 09-24-2024 Monocytes/100 WBC (Bld) 7.2 % Normal 0-10 [facility] Comment on above: Order Comment: 109 Performed By: #### L 100.0100 ####[facility] [address] [place], [address] Neutrophil percentageOrdered By: Renard Burgos on 09-24-2024 Neutrophils/100 WBC (Bld) 71.0 % High 47-70 [facility] Comment on above: Order Comment: 109 Performed By: #### L 100.0100 ####[facility] [address] [place], [address] Nucleated red blood cell per centageOrdered By: Renard Burgos on 09-24-2024 Nucleated RBC/100 WBC (Bld) [Ratio] 0 % 0-5 [facility] Platelet countOrdered By: Garrick Bhatt on 09-24-2024 Platelets (Bld) [#/Vol] 187 10*3/uL Normal 150-450 [facility] Comment on above: Order Comment: 109 Performed By: #### L 100.0100 ####[facility] [address] [place], [address] White blood cell (WBC) count Ordered By: Renard Burgos on 09-24-2024 WBC (Bld) [#/Vol] 9.6 10*3/uL Normal 4.4-11.0 [facility] Comment on above: Order Comment: 109 Performed By: #### L 100.0100 ####[facility] [address] [place], [address] Absolute lymphocyte countOrd ered By: Renard Burgos on 09-16-2024 Lymphocytes Auto (Unsp spec) [#/Vol] 2.44 10*3/uL 0.83-4.51 [facility] Absolute neutrophil countOrd ered By: Renard Burgos on 09-16-2024 Neutrophils (Bld) [#/Vol] 5.5 10*3/uL 2.0-7.7 [facility] Automated lymphocyte count a s percentage of total leukocytesOrdered By: Renard Burgos on 09-16-2024 Lymphocytes/100 WBC Auto (Unsp spec) 27.7 % [facility] Basophil percentageOrdered B y: Renard Burgos on 09-16-2024 Basophils/100 WBC (Bld) 0.8 % 0-1 [facility] CBC W/Diff, Automatedon 08-29 Absolute Lymph 2.44 X10 3/uL Normal 0.83-4.51 [facility] Comment on above: Order Comment: 109.1 Performed By: #### L 100.0100 ####[facility] [address] [place], [address] Absolute Neut 5.5 X10 3/uL Normal 2.0-7.7 [facility] Comment on above: Order Comment: 109.1 Performed By: #### L 100.0100 ####[facility] [address] [place], [address] Basophils/100 WBC (Bld) 0.8 % Normal 0-1 [facility] Comment on above: Order Comment: 109.1 Performed By: #### L 100.0100 ####[facility] [address] [place], [address] Eosinophils/100 WBC (Bld) 0.7 % Normal 0-5 [facility] Comment on above: Order Comment: 109.1 Performed By: #### L 100.0100 ####[facility] [address] [place], [address] Erythrocyte distribution width (RBC) [Ratio] 13.1 % Normal 11.6-14.6 [facility] Comment on above: Order Comment: 109.1 Performed By: #### L 100.0100 ####[facility] [address] [place], [address] Hematocrit (Bld) [Volume fraction] 46.8 % Normal 40-54 [facility] Comment on above: Order Comment: 109.1 Performed By: #### L 100.0100 ####[facility] [address] [place], [address] Hemoglobin (Bld) [Mass/Vol] 15.4 g/dL Normal 13.0-16.5 [facility] Comment on above: Order Comment: 109.1 Performed By: #### L 100.0100 ####[facility] [address] [place], [address] IG% 0.200 Normal 0.0-0.9 [facility] Comment on above: Order Comment: 109.1 Result Comment: IG% - Immature Granulocytes (promyelocytes, myelocytes andmetamyelocytes) > 1% indicates that a LEFT SHIFT is Present. Performed By: #### L 100.0100 ####[facility] [address] [place], [address] Lymphocytes/100 WBC (Bld) 27.7 % Normal 19-41 [facility] Comment on above: Order Comment: 109.1 Performed By: #### L 100.0100 ####[facility] [address] [place], [address] MCH (RBC) [Entitic mass] 30.1 pg Normal 27.0-32.0 [facility] Comment on above: Order Comment: 109.1 Performed By: #### L 100.0100 ####[facility] [address] [place], [address] MCHC (RBC) [Mass/Vol] 32.9 g/dL Normal 32-36 [facility] Comment on above: Order Comment: 109.1 Performed By: #### L 100.0100 ####[facility] [address] [place], [address] MCV (RBC) [Entitic vol] 91.4 fL Normal 80-94 [facility] Comment on above: Order Comment: 109.1 Performed By: #### L 100.0100 ####[facility] [address] [place], [address] Monocytes/100 WBC (Bld) 8.5 % Normal 0-10 [facility] Comment on above: Order Comment: 109.1 Performed By: #### L 100.0100 ####[facility] [address] [place], [address] Neutrophils/100 WBC (Bld) 62.1 % Normal 47-70 [facility] Comment on above: Order Comment: 109.1 Performed By: #### L 100.0100 ####[facility] [address] [place], [address] Nucleated RBC (Bld) [#/Vol] 0 10*3/uL Normal 0-5 [facility] Comment on above: Order Comment: 109.1 Performed By: #### L 100.0100 ####[facility] [address] [place], [address] Platelet mean volume (Bld) [Entitic vol] 10.6 fL Normal 6.2-12.0 [facility] Comment on above: Order Comment: 109.1 Performed By: #### L 100.0100 ####[facility] [address] [place], [address] Platelets (Bld) [#/Vol] 190 10*3/uL Normal 150-450 [facility] Comment on above: Order Comment: 109.1 Performed By: #### L 100.0100 ####[facility] [address] [place], [address] RBC (Bld) [#/Vol] 5.12 10*6/uL Normal 4.6-6.2 [facility] Comment on above: Order Comment: 109.1 Performed By: #### L 100.0100 ####[facility] [address] [place], [address] RDW SD 43.3 fl Normal 35.1-43.9 [facility] Comment on above: Order Comment: 109.1 Performed By: #### L 100.0100 ####[facility] [address] [place], [address] WBC (Bld) [#/Vol] 8.8 10*3/uL Normal 4.4-11.0 [facility] Comment on above: Order Comment: 109.1 Performed By: #### L 100.0100 ####[facility] [address] [place], [address] Eosinophil percentageOrdered By: Renard Burgos on 09-16-2024 Eosinophils/100 WBC (Bld) 0.7 % 0-5 [facility] Erythrocyte distribution wid th ratioOrdered By: Renard Burgos on 09-16-2024 Erythrocyte distribution width (RBC) [Ratio] 13.1 % 11.6-14.6 [facility] Erythrocyte distribution wid th standard deviationOrdered By: Renard Burgos on 09-16-2024 Erythrocyte distribution width (RBC) [Ratio] 43.3 fl 35.1-43.9 [facility] Hematocrit Auto (Bld) [Volum e fraction]Ordered By: Renard Burgos on 09-16-2024 Hematocrit (Bld) [Volume fraction] 46.8 % 40-54 [facility] Hemoglobin measurementOrdere d By: Renard Burgos on 09-16-2024 Hemoglobin (Bld) [Mass/Vol] 15.4 g/dL 13.0-16.5 [facility] Immature granulocytes/100 WB C Auto (Bld)Ordered By: Renard Burgos on 09-16-2024 Immature granulocytes/100 WBC (Bld) 0.200 % 0.0-0.9 [facility] Comment on above: IG% - Immature Granu locytes (promyelocytes, myelocytes and metamyelocytes) > 1% indicates that a LEFT SHIFT is Present. MCV (mean corpuscular volume ) determinationOrdered By: Renard Burgos on 09-16-2024 MCV (RBC) [Entitic vol] 91.4 fL 80-94 [facility] Mean corpuscular hemoglobin (MCH) determinationOrdered By: Renard Burgos on 09-16-2024 MCH (RBC) [Entitic mass] 30.1 pg 27.0-32.0 [facility] Mean corpuscular hemoglobin concentration (MCHC) determinationOrdered By: Renard Burgos on 09-16-2024 MCHC (RBC) [Mass/Vol] 32.9 g/dL 32-36 [facility] Mean platelet volume determi nationOrdered By: Renard Burgos on 09-16-2024 Platelet mean volume (Bld) [Entitic vol] 10.6 fL 6.2-12.0 [facility] Monocyte percentageOrdered B y: Renard Burgos on 09-16-2024 Monocytes/100 WBC (Bld) 8.5 % 0-10 [facility] Neutrophil percentageOrdered By: Renard Burgos on 09-16-2024 Neutrophils/100 WBC (Bld) 62.1 % 47-70 [facility] Nucleated red blood cell per centageOrdered By: Renard Burgos on 09-16-2024 Nucleated RBC/100 WBC (Bld) [Ratio] 0 % 0-5 [facility] Platelet countOrdered By: Garrick Bhatt on 09-16-2024 Platelets (Bld) [#/Vol] 190 10*3/uL 150-450 [facility] RBC Auto (Bld) [#/Vol]Ordere d By: Renard Burgos on 09-16-2024 RBC (Bld) [#/Vol] 5.12 10*6/uL 4.6-6.2 [facility] White blood cell (WBC) count Ordered By: Renard Burgos on 09-16-2024 WBC (Bld) [#/Vol] 8.8 10*3/uL 4.4-11.0 [facility] Anion gap in Serum or Plasma Ordered By: Renard Burgos on 09-11-2024 Anion gap [Moles/Vol] 11 mmol/L 5-15 [facility] Automated blood erythrocyte countOrdered By: Renard Burgos on 09-11-2024 RBC (Bld) [#/Vol] 4.67 10*6/uL Normal 4.6-6.2 [facility] Comment on above: Order Comment: 109-1 Performed By: #### L 100.0500, L500.2500 ####[facility] [address] [facility] [address] [place], [place], [id number] Automated blood hematocrit ( percentage)Ordered By: Renard Burgos on 09-11-2024 Hematocrit (Bld) [Volume fraction] 42.7 % Normal 40-54 [facility] Comment on above: Order Comment: 109-1 Performed By: #### L 100.0500, L500.2500 ####[facility] [address] [place], [address] BUN/creatinine ratioOrdered By: Renard Burgos on 09-11-2024 Urea nitrogen/Creatinine [Mass ratio] 23.0 mg/mg High [facility] Basic Metabolic Profile (BMP )on 09-11-2024 BUN/CRE 23.0 RATIO High 10- [facility] Comment on above: Order Comment: 109-1 Performed By: #### L 100.0500, L500.2500 ####[facility] [address] [place], [address] Calcium [Mass/Vol] 8.7 mg/dL Normal 7.6-11.0 [facility] Comment on above: Order Comment: 109-1 Performed By: #### L 100.0500, L500.2500 ####[facility] [address] [place], [address] Chloride [Moles/Vol] 104 mmol/L Normal 98-108 [facility] Comment on above: Order Comment: 109-1 Performed By: #### L 100.0500, L500.2500 ####[facility] [address] [place], [address] CO2 [Moles/Vol] 25.9 mmol/L Normal 21.0-32.0 [facility] Comment on above: Order Comment: 109-1 Performed By: #### L 100.0500, L500.2500 ####[facility] [address] [place], [address] Creatinine [Mass/Vol] 0.58 mg/dL Low 0.70-1.20 [facility] Comment on above: Order Comment: 109-1 Performed By: #### L 100.0500, L500.2500 ####[facility] [address] [place], [address] GAP 11 Normal 5-15 [facility] Comment on above: Order Comment: 109-1 Performed By: #### L 100.0500, L500.2500 ####[facility] [address] [place], [address] GFR/1.73 sq M.predicted among non-blacks MDRD (S/P/Bld) [Vol rate/Area] 107 mL/min/{1.73_m2} Normal >60 [facility] Comment on above: Order Comment: 109-1 Result Comment: mL/m in/1.73m2 CKD-EPI Creatinine Equation (2020) Performed By: #### L 100.0500, L500.2500 ####[facility] [address] [place], [address] Glucose [Mass/Vol] 113 mg/dL High 70-99 [facility] Comment on above: Order Comment: 109-1 Performed By: #### L 100.0500, L500.2500 ####[facility] [address] [place], [address] Potassium [Moles/Vol] 3.8 mmol/L Normal 3.3-5.1 [facility] Comment on above: Order Comment: 109-1 Performed By: #### L 100.0500, L500.2500 ####[facility] [address] [place], [address] Sodium [Moles/Vol] 141 mmol/L Normal 133-145 [facility] Comment on above: Order Comment: 109-1 Performed By: #### L 100.0500, L500.2500 ####[facility] [address] [place], [address] Urea nitrogen [Mass/Vol] 13 mg/dL Normal 4-19 [facility] Comment on above: Order Comment: 109-1 Performed By: #### L 100.0500, L500.2500 ####[facility] [address] [place], [address] CBC-Complete Blood Cnt No Di ffon 09-11-2024 RDW SD 43.7 fl Normal 35.1-43.9 [facility] Comment on above: Order Comment: 109-1 Performed By: #### L 100.0500, L500.2500 ####[facility] [address] [place], [address] Carbon dioxide, total [Moles /volume] in Central venous bloodOrdered By: Renard Burgos on 09-11-2024 CO2 [Moles/Vol] 25.9 mmol/L 21.0-32.0 [facility] Chloride assayOrdered By: Garrick Bhatt on 09-11-2024 Chloride [Moles/Vol] 104 mmol/L 98-108 [facility] Erythrocyte distribution wid th ratioOrdered By: Renard Burgos on 09-11-2024 Erythrocyte distribution width (RBC) [Ratio] 13.2 % Normal 11.6-14.6 [facility] Comment on above: Order Comment: 109-1 Performed By: #### L 100.0500, L500.2500 ####[facility] [address] [place], [place], [id number] Erythrocyte distribution wid th standard deviationOrdered By: Renard Burgos on 09-11-2024 Erythrocyte distribution width (RBC) [Ratio] 43.7 fl 35.1-43.9 [facility] Glomerular filtration rate ( GFR) estimation/1.73 sq m using serum, plasma, or whole bOrdered By: Renard Burgos on 09-11-2024 GFR/1.73 sq M.predicted among non-blacks MDRD (S/P/Bld) [Vol rate/Area] 107 mL/min/{1.73_m2} >60 [facility] Comment on above: mL/min/1.73m2 CKD-EP I Creatinine Equation (2020) Hemoglobin measurementOrdere d By: Renard Burgos on 09-11-2024 Hemoglobin (Bld) [Mass/Vol] 14.0 g/dL Normal 13.0-16.5 [facility] Comment on above: Order Comment: 109-1 Performed By: #### L 100.0500, L500.2500 ####[facility] [address] [place], [place], [id number] MCV (mean corpuscular volume ) determinationOrdered By: Renard Burgos on 09-11-2024 MCV (RBC) [Entitic vol] 91.4 fL Normal 80-94 [facility] Comment on above: Order Comment: 109-1 Performed By: #### L 100.0500, L500.2500 ####[facility] [address] [place], [address] Mean corpuscular hemoglobin (MCH) determinationOrdered By: Renard Burgos on 09-11-2024 MCH (RBC) [Entitic mass] 30.0 pg Normal 27.0-32.0 [facility] Comment on above: Order Comment: 109-1 Performed By: #### L 100.0500, L500.2500 ####[facility] [address] [place], [address] Mean corpuscular hemoglobin concentration (MCHC) determinationOrdered By: Renard Burgos on 09-11-2024 MCHC (RBC) [Mass/Vol] 32.8 g/dL Normal 32-36 [facility] Comment on above: Order Comment: 109-1 Performed By: #### L 100.0500, L500.2500 ####[facility] [address] [place], [address] Mean platelet volume determi nationOrdered By: Renard Burgos on 09-11-2024 Platelet mean volume (Bld) [Entitic vol] 11.3 fL Normal 6.2-12.0 [facility] Comment on above: Order Comment: 109-1 Performed By: #### L 100.0500, L500.2500 ####[facility] [address] [place], [address] Platelet countOrdered By: Garrick Bhatt on 09-11-2024 Platelets (Bld) [#/Vol] 191 10*3/uL Normal 150-450 [facility] Comment on above: Order Comment: 109-1 Performed By: #### L 100.0500, L500.2500 ####[facility] [address] [place], [address] Potassium measurement (mass/ volume)Ordered By: Renard Burgos on 09-11-2024 Potassium (Unsp spec) [Mass/Vol] 3.8 mmol/L 3.3-5.1 [facility] Serum creatinine measurement (mass/volume)Ordered By: Renard Burgos on 09-11-2024 Creatinine [Mass/Vol] 0.58 mg/dL Low 0.70-1.20 [facility] Serum glucose measurement (m ass/volume)Ordered By: Renard Burgos on 09-11-2024 Glucose [Mass/Vol] 113 mg/dL High 70-99 [facility] Serum or plasma calcium gordy urement (mass/volume)Ordered By: Renard Burgos on 09-11-2024 Calcium [Mass/Vol] 8.7 mg/dL 7.6-11.0 [facility] Serum or plasma urea nitroge n measurement (mass/volume)Ordered By: Renard Burgos on 09-11-2024 Urea nitrogen [Mass/Vol] 13 mg/dL 4-19 [facility] Sodium levelOrdered By: Lamine Burgos on 09-11-2024 Sodium [Moles/Vol] 141 mmol/L 133-145 [facility] White blood cell (WBC) count Ordered By: Renard Burgos on 09-11-2024 WBC (Bld) [#/Vol] 7.6 10*3/uL Normal 4.4-11.0 [facility] Comment on above: Order Comment: 109-1 Performed By: #### L 100.0500, L500.2500 ####[facility] [address] [place], [place], [id number] Absolute lymphocyte countOrd ered By: Renard Burgos on 09-09-2024 Lymphocytes Auto (Unsp spec) [#/Vol] 2.24 10*3/uL 0.83-4.51 [facility] Absolute neutrophil countOrd ered By: Renard Burgos on 09-09-2024 Neutrophils (Bld) [#/Vol] 8.7 10*3/uL High 2.0-7.7 [facility] Automated lymphocyte count a s percentage of total leukocytesOrdered By: Renard Burgos on 09-09-2024 Lymphocytes/100 WBC Auto (Unsp spec) 19.1 % 19- [facility] Basophil percentageOrdered B y: Renard Burgos on 09-09-2024 Basophils/100 WBC (Bld) 0.4 % 0-1 [facility] CBC W/Diff, Automatedon 08-29 Absolute Lymph 2.24 X10 3/uL Normal 0.83-4.51 [facility] Comment on above: Order Comment: 109-1 Performed By: #### L 100.0100 ####[facility] [address] [place], [address] Absolute Neut 8.7 X10 3/uL High 2.0-7.7 [facility] Comment on above: Order Comment: 109-1 Performed By: #### L 100.0100 ####[facility] [address] [place], [address] Basophils/100 WBC (Bld) 0.4 % Normal 0-1 [facility] Comment on above: Order Comment: 109-1 Performed By: #### L 100.0100 ####[facility] [address] [place], [address] Eosinophils/100 WBC (Bld) 0.5 % Normal 0-5 [facility] Comment on above: Order Comment: 109-1 Performed By: #### L 100.0100 ####[facility] [address] [place], [address] Erythrocyte distribution width (RBC) [Ratio] 13.0 % Normal 11.6-14.6 [facility] Comment on above: Order Comment: 109-1 Performed By: #### L 100.0100 ####[facility] [address] [place], [address] Hematocrit (Bld) [Volume fraction] 44.7 % Normal 40-54 [facility] Comment on above: Order Comment: 109-1 Performed By: #### L 100.0100 ####[facility] [address] [place], [address] Hemoglobin (Bld) [Mass/Vol] 14.6 g/dL Normal 13.0-16.5 [facility] Comment on above: Order Comment: 109-1 Performed By: #### L 100.0100 ####[facility] [address] [place], [address] IG% 0.300 Normal 0.0-0.9 [facility] Comment on above: Order Comment: 109-1 Result Comment: IG% - Immature Granulocytes (promyelocytes, myelocytes andmetamyelocytes) > 1% indicates that a LEFT SHIFT is Present. Performed By: #### L 100.0100 ####[facility] [address] [place], [address] Lymphocytes/100 WBC (Bld) 19.1 % Normal 19-41 [facility] Comment on above: Order Comment: 109-1 Performed By: #### L 100.0100 ####[facility] [address] [place], [address] MCH (RBC) [Entitic mass] 30.1 pg Normal 27.0-32.0 [facility] Comment on above: Order Comment: 109-1 Performed By: #### L 100.0100 ####[facility] [address] [place], [address] MCHC (RBC) [Mass/Vol] 32.7 g/dL Normal 32-36 [facility] Comment on above: Order Comment: 109-1 Performed By: #### L 100.0100 ####[facility] [address] [place], [address] MCV (RBC) [Entitic vol] 92.2 fL Normal 80-94 [facility] Comment on above: Order Comment: 109-1 Performed By: #### L 100.0100 ####[facility] [address] [place], [address] Monocytes/100 WBC (Bld) 5.1 % Normal 0-10 [facility] Comment on above: Order Comment: 109-1 Performed By: #### L 100.0100 ####[facility] [address] [place], [address] Neutrophils/100 WBC (Bld) 74.6 % High 47-70 [facility] Comment on above: Order Comment: 109-1 Performed By: #### L 100.0100 ####[facility] [address] [place], [address] Nucleated RBC (Bld) [#/Vol] 0 10*3/uL Normal 0-5 [facility] Comment on above: Order Comment: 109-1 Performed By: #### L 100.0100 ####[facility] [address] [place], [address] Platelet mean volume (Bld) [Entitic vol] 11.6 fL Normal 6.2-12.0 [facility] Comment on above: Order Comment: 109-1 Performed By: #### L 100.0100 ####[facility] [address] [place], [address] Platelets (Bld) [#/Vol] 189 10*3/uL Normal 150-450 [facility] Comment on above: Order Comment: 109-1 Performed By: #### L 100.0100 ####[facility] [address] [place], [address] RBC (Bld) [#/Vol] 4.85 10*6/uL Normal 4.6-6.2 [facility] Comment on above: Order Comment: 109-1 Performed By: #### L 100.0100 ####[facility] [address] [place], [address] RDW SD 43.8 fl Normal 35.1-43.9 [facility] Comment on above: Order Comment: 109-1 Performed By: #### L 100.0100 ####[facility] [address] [place], [address] WBC (Bld) [#/Vol] 11.7 10*3/uL High 4.4-11.0 [facility] Comment on above: Order Comment: 109-1 Performed By: #### L 100.0100 ####[facility] [address] [place], [address] Eosinophil percentageOrdered By: Renard Burgos on 09-09-2024 Eosinophils/100 WBC (Bld) 0.5 % 0-5 [facility] Erythrocyte distribution wid th ratioOrdered By: Renard Burgos on 09-09-2024 Erythrocyte distribution width (RBC) [Ratio] 13.0 % 11.6-14.6 [facility] Erythrocyte distribution wid th standard deviationOrdered By: Renard Burgos on 09-09-2024 Erythrocyte distribution width (RBC) [Ratio] 43.8 fl 35.1-43.9 [facility] Hematocrit Auto (Bld) [Volum e fraction]Ordered By: Renard Burgos on 09-09-2024 Hematocrit (Bld) [Volume fraction] 44.7 % 40-54 [facility] Hemoglobin measurementOrdere d By: Renard Burgos on 09-09-2024 Hemoglobin (Bld) [Mass/Vol] 14.6 g/dL 13.0-16.5 [facility] Immature granulocytes/100 WB C Auto (Bld)Ordered By: Renard Burgos on 09-09-2024 Immature granulocytes/100 WBC (Bld) 0.300 % 0.0-0.9 [facility] Comment on above: IG% - Immature Granu locytes (promyelocytes, myelocytes and metamyelocytes) > 1% indicates that a LEFT SHIFT is Present. MCV (mean corpuscular volume ) determinationOrdered By: Renard Burgos on 09-09-2024 MCV (RBC) [Entitic vol] 92.2 fL 80-94 [facility] Mean corpuscular hemoglobin (MCH) determinationOrdered By: Renard Burgos on 09-09-2024 MCH (RBC) [Entitic mass] 30.1 pg 27.0-32.0 [facility] Mean corpuscular hemoglobin concentration (MCHC) determinationOrdered By: Renard Burgos on 09-09-2024 MCHC (RBC) [Mass/Vol] 32.7 g/dL 32-36 [facility] Mean platelet volume determi nationOrdered By: eRnard Burgos on 09-09-2024 Platelet mean volume (Bld) [Entitic vol] 11.6 fL 6.2-12.0 [facility] Monocyte percentageOrdered B y: Renard Burgos on 09-09-2024 Monocytes/100 WBC (Bld) 5.1 % 0-10 [facility] Neutrophil percentageOrdered By: Renard Burgos on 09-09-2024 Neutrophils/100 WBC (Bld) 74.6 % High 47-70 [facility] Nucleated red blood cell per centageOrdered By: Renard Burgos on 09-09-2024 Nucleated RBC/100 WBC (Bld) [Ratio] 0 % 0-5 [facility] Platelet countOrdered By: Garrick Bhatt on 09-09-2024 Platelets (Bld) [#/Vol] 189 10*3/uL 150-450 [facility] RBC Auto (Bld) [#/Vol]Ordere d By: Renard Burgos on 09-09-2024 RBC (Bld) [#/Vol] 4.85 10*6/uL 4.6-6.2 [facility] White blood cell (WBC) count Ordered By: Renard Burgos on 09-09-2024 WBC (Bld) [#/Vol] 11.7 10*3/uL High 4.4-11.0 [facility] Absolute lymphocyte countOrd ered By: Renard Burgos on 09-02-2024 Lymphocytes Auto (Unsp spec) [#/Vol] 2.07 10*3/uL 0.83-4.51 [facility] Absolute neutrophil countOrd ered By: Renard Burgos on 09-02-2024 Neutrophils (Bld) [#/Vol] 5.8 10*3/uL 2.0-7.7 [facility] Automated lymphocyte count a s percentage of total leukocytesOrdered By: Renard Burgos on 09-02-2024 Lymphocytes/100 WBC Auto (Unsp spec) 24.4 % 19-41 [facility] Basophil percentageOrdered B y: Renard Burgos on 09-02-2024 Basophils/100 WBC (Bld) 0.6 % 0-1 [facility] CBC W/Diff, Automatedon Absolute Lymph 2.07 X10 3/uL Normal 0.83-4.51 [facility] Comment on above: Order Comment: 109 Performed By: #### L 100.0100 ####[facility] [address] [place], [address] Absolute Neut 5.8 X10 3/uL Normal 2.0-7.7 [facility] Comment on above: Order Comment: 109 Performed By: #### L 100.0100 ####[facility] [address] [place], [address] Basophils/100 WBC (Bld) 0.6 % Normal 0-1 [facility] Comment on above: Order Comment: 109 Performed By: #### L 100.0100 ####[facility] [address] [place], [address] Eosinophils/100 WBC (Bld) 0.7 % Normal 0-5 [facility] Comment on above: Order Comment: 109 Performed By: #### L 100.0100 ####[facility] [address] [place], [address] Erythrocyte distribution width (RBC) [Ratio] 12.8 % Normal 11.6-14.6 [facility] Comment on above: Order Comment: 109 Performed By: #### L 100.0100 ####[facility] [address] [place], [address] Hematocrit (Bld) [Volume fraction] 44.5 % Normal 40-54 [facility] Comment on above: Order Comment: 109 Performed By: #### L 100.0100 ####[facility] [address] [place], [address] Hemoglobin (Bld) [Mass/Vol] 14.9 g/dL Normal 13.0-16.5 [facility] Comment on above: Order Comment: 109 Performed By: #### L 100.0100 ####[facility] [address] [place], [address] IG% 0.400 Normal 0.0-0.9 [facility] Comment on above: Order Comment: 109 Result Comment: IG% - Immature Granulocytes (promyelocytes, myelocytes andmetamyelocytes) > 1% indicates that a LEFT SHIFT is Present. Performed By: #### L 100.0100 ####[facility] [address] [place], [address] Lymphocytes/100 WBC (Bld) 24.4 % Normal 19-41 [facility] Comment on above: Order Comment: 109 Performed By: #### L 100.0100 ####[facility] [address] [place], [address] MCH (RBC) [Entitic mass] 29.9 pg Normal 27.0-32.0 [facility] Comment on above: Order Comment: 109 Performed By: #### L 100.0100 ####[facility] [address] [place], [address] MCHC (RBC) [Mass/Vol] 33.5 g/dL Normal 32-36 [facility] Comment on above: Order Comment: 109 Performed By: #### L 100.0100 ####[facility] [address] [place], [address] MCV (RBC) [Entitic vol] 89.4 fL Normal 80-94 [facility] Comment on above: Order Comment: 109 Performed By: #### L 100.0100 ####[facility] [address] [place], [address] Monocytes/100 WBC (Bld) 5.4 % Normal 0-10 [facility] Comment on above: Order Comment: 109 Performed By: #### L 100.0100 ####[facility] [address] [place], [address] Neutrophils/100 WBC (Bld) 68.5 % Normal 47-70 [facility] Comment on above: Order Comment: 109 Performed By: #### L 100.0100 ####[facility] [address] [place], [address] Nucleated RBC (Bld) [#/Vol] 0 10*3/uL Normal 0-5 [facility] Comment on above: Order Comment: 109 Performed By: #### L 100.0100 ####[facility] [address] [place], [address] Platelet mean volume (Bld) [Entitic vol] 10.7 fL Normal 6.2-12.0 [facility] Comment on above: Order Comment: 109 Performed By: #### L 100.0100 ####[facility] [address] [place], [address] Platelets (Bld) [#/Vol] 189 10*3/uL Normal 150-450 [facility] Comment on above: Order Comment: 109 Performed By: #### L 100.0100 ####[facility] [address] [place], [address] RBC (Bld) [#/Vol] 4.98 10*6/uL Normal 4.6-6.2 [facility] Comment on above: Order Comment: 109 Performed By: #### L 100.0100 ####[facility] [address] [place], [address] RDW SD 41.7 fl Normal 35.1-43.9 [facility] Comment on above: Order Comment: 109 Performed By: #### L 100.0100 ####[facility] [address] [place], [address] WBC (Bld) [#/Vol] 8.5 10*3/uL Normal 4.4-11.0 [facility] Comment on above: Order Comment: 109 Performed By: #### L 100.0100 ####[facility] [address] [place], [address] Eosinophil percentageOrdered By: Renard Burgos on 09-02-2024 Eosinophils/100 WBC (Bld) 0.7 % 0-5 [facility] Erythrocyte distribution wid th ratioOrdered By: Renard Burgos on 09-02-2024 Erythrocyte distribution width (RBC) [Ratio] 12.8 % 11.6-14.6 [facility] Erythrocyte distribution wid th standard deviationOrdered By: Renard Burgos on 09-02-2024 Erythrocyte distribution width (RBC) [Ratio] 41.7 fl 35.1-43.9 [facility] Hematocrit Auto (Bld) [Volum e fraction]Ordered By: Renard Burgos on 09-02-2024 Hematocrit (Bld) [Volume fraction] 44.5 % 40-54 [facility] Hemoglobin measurementOrdere d By: Renard Burgos on 09-02-2024 Hemoglobin (Bld) [Mass/Vol] 14.9 g/dL 13.0-16.5 [facility] Immature granulocytes/100 WB C Auto (Bld)Ordered By: Renard Burgos on 09-02-2024 Immature granulocytes/100 WBC (Bld) 0.400 % 0.0-0.9 [facility] Comment on above: IG% - Immature Granu locytes (promyelocytes, myelocytes and metamyelocytes) > 1% indicates that a LEFT SHIFT is Present. MCV (mean corpuscular volume ) determinationOrdered By: Renard Burgos on 09-02-2024 MCV (RBC) [Entitic vol] 89.4 fL 80-94 [facility] Mean corpuscular hemoglobin (MCH) determinationOrdered By: Renard uBrgos on 09-02-2024 MCH (RBC) [Entitic mass] 29.9 pg 27.0-32.0 [facility] Mean corpuscular hemoglobin concentration (MCHC) determinationOrdered By: Renard Burgos on 09-02-2024 MCHC (RBC) [Mass/Vol] 33.5 g/dL 32-36 [facility] Mean platelet volume determi nationOrdered By: Renard Burgos on 09-02-2024 Platelet mean volume (Bld) [Entitic vol] 10.7 fL 6.2-12.0 [facility] Monocyte percentageOrdered B y: Renard Burgos on 09-02-2024 Monocytes/100 WBC (Bld) 5.4 % 0-10 [facility] Neutrophil percentageOrdered By: Renard Burgos on 09-02-2024 Neutrophils/100 WBC (Bld) 68.5 % 47-70 [facility] Nucleated red blood cell per centageOrdered By: Renard Burgos on 09-02-2024 Nucleated RBC/100 WBC (Bld) [Ratio] 0 % 0-5 [facility] Platelet countOrdered By: Garrick Bhatt on 09-02-2024 Platelets (Bld) [#/Vol] 189 10*3/uL 150-450 [facility] RBC Auto (Bld) [#/Vol]Ordere d By: Renard Burgos on 09-02-2024 RBC (Bld) [#/Vol] 4.98 10*6/uL 4.6-6.2 [facility] White blood cell (WBC) count Ordered By: Renard Burgos on 09-02-2024 WBC (Bld) [#/Vol] 8.5 10*3/uL 4.4-11.0 [facility] Absolute lymphocyte countOrd ered By: Renard Burgos on 08-26-2024 Lymphocytes Auto (Unsp spec) [#/Vol] 2.17 10*3/uL 0.83-4.51 [facility] Absolute neutrophil countOrd ered By: Renard Burgos on 08-26-2024 Neutrophils (Bld) [#/Vol] 5.7 10*3/uL 2.0-7.7 [facility] Automated lymphocyte count a s percentage of total leukocytesOrdered By: Renard Burgos on 08-26-2024 Lymphocytes/100 WBC Auto (Unsp spec) 25.1 % 19-41 [facility] Basophil percentageOrdered B y: Renard Burgos on 08-26-2024 Basophils/100 WBC (Bld) 0.6 % 0-1 [facility] CBC W/Diff, Automatedon 07-31 Absolute Lymph 2.17 X10 3/uL Normal 0.83-4.51 [facility] Comment on above: Order Comment: 109-1 Performed By: #### L 100.0100 ####[facility] [address] [place], [address] Absolute Neut 5.7 X10 3/uL Normal 2.0-7.7 [facility] Comment on above: Order Comment: 109-1 Performed By: #### L 100.0100 ####[facility] [address] [place], [address] Basophils/100 WBC (Bld) 0.6 % Normal 0-1 [facility] Comment on above: Order Comment: 109-1 Performed By: #### L 100.0100 ####[facility] [address] [place], [address] Eosinophils/100 WBC (Bld) 0.8 % Normal 0-5 [facility] Comment on above: Order Comment: 109-1 Performed By: #### L 100.0100 ####[facility] [address] [place], [address] Erythrocyte distribution width (RBC) [Ratio] 12.7 % Normal 11.6-14.6 [facility] Comment on above: Order Comment: 109-1 Performed By: #### L 100.0100 ####[facility] [address] [place], [address] Hematocrit (Bld) [Volume fraction] 41.8 % Normal 40-54 [facility] Comment on above: Order Comment: 109-1 Performed By: #### L 100.0100 ####[facility] [address] [place], [address] Hemoglobin (Bld) [Mass/Vol] 13.8 g/dL Normal 13.0-16.5 [facility] Comment on above: Order Comment: 109-1 Performed By: #### L 100.0100 ####[facility] [address] [place], [address] IG% 0.200 Normal 0.0-0.9 [facility] Comment on above: Order Comment: 109-1 Result Comment: IG% - Immature Granulocytes (promyelocytes, myelocytes andmetamyelocytes) > 1% indicates that a LEFT SHIFT is Present. Performed By: #### L 100.0100 ####[facility] [address] [place], [address] Lymphocytes/100 WBC (Bld) 25.1 % Normal 19-41 [facility] Comment on above: Order Comment: 109-1 Performed By: #### L 100.0100 ####[facility] [address] [place], [address] MCH (RBC) [Entitic mass] 29.7 pg Normal 27.0-32.0 [facility] Comment on above: Order Comment: 109-1 Performed By: #### L 100.0100 ####[facility] [address] [place], [address] MCHC (RBC) [Mass/Vol] 33.0 g/dL Normal 32-36 [facility] Comment on above: Order Comment: 109-1 Performed By: #### L 100.0100 ####[facility] [address] [place], [address] MCV (RBC) [Entitic vol] 90.1 fL Normal 80-94 [facility] Comment on above: Order Comment: 109-1 Performed By: #### L 100.0100 ####[facility] [address] [place], [address] Monocytes/100 WBC (Bld) 7.4 % Normal 0-10 [facility] Comment on above: Order Comment: 109-1 Performed By: #### L 100.0100 ####[facility] [address] [place], [address] Neutrophils/100 WBC (Bld) 65.9 % Normal 47-70 [facility] Comment on above: Order Comment: 109-1 Performed By: #### L 100.0100 ####[facility] [address] [place], [address] Nucleated RBC (Bld) [#/Vol] 0 10*3/uL Normal 0-5 [facility] Comment on above: Order Comment: 109-1 Performed By: #### L 100.0100 ####[facility] [address] [place], [address] Platelet mean volume (Bld) [Entitic vol] 11.3 fL Normal 6.2-12.0 [facility] Comment on above: Order Comment: 109-1 Performed By: #### L 100.0100 ####[facility] [address] [place], [address] Platelets (Bld) [#/Vol] 196 10*3/uL Normal 150-450 [facility] Comment on above: Order Comment: 109-1 Performed By: #### L 100.0100 ####[facility] [address] [place], [address] RBC (Bld) [#/Vol] 4.64 10*6/uL Normal 4.6-6.2 [facility] Comment on above: Order Comment: 109-1 Performed By: #### L 100.0100 ####[facility] [address] [place], [address] RDW SD 41.3 fl Normal 35.1-43.9 [facility] Comment on above: Order Comment: 109-1 Performed By: #### L 100.0100 ####[facility] [address] [place], [address] WBC (Bld) [#/Vol] 8.6 10*3/uL Normal 4.4-11.0 [facility] Comment on above: Order Comment: 109-1 Performed By: #### L 100.0100 ####[facility] [address] [place], [address] Eosinophil percentageOrdered By: Renard Burgos on 08-26-2024 Eosinophils/100 WBC (Bld) 0.8 % 0-5 [facility] Erythrocyte distribution wid th ratioOrdered By: Renard Burgos on 08-26-2024 Erythrocyte distribution width (RBC) [Ratio] 12.7 % 11.6-14.6 [facility] Erythrocyte distribution wid th standard deviationOrdered By: Renard Burgos on 08-26-2024 Erythrocyte distribution width (RBC) [Ratio] 41.3 fl 35.1-43.9 [facility] Hematocrit Auto (Bld) [Volum e fraction]Ordered By: Renard Burgos on 08-26-2024 Hematocrit (Bld) [Volume fraction] 41.8 % 40-54 [facility] Hemoglobin measurementOrdere d By: Renard Burgos on 08-26-2024 Hemoglobin (Bld) [Mass/Vol] 13.8 g/dL 13.0-16.5 [facility] Immature granulocytes/100 WB C Auto (Bld)Ordered By: Renard Burgos on 08-26-2024 Immature granulocytes/100 WBC (Bld) 0.200 % 0.0-0.9 [facility] Comment on above: IG% - Immature Granu locytes (promyelocytes, myelocytes and metamyelocytes) > 1% indicates that a LEFT SHIFT is Present. MCV (mean corpuscular volume ) determinationOrdered By: Renard Burgos on 08-26-2024 MCV (RBC) [Entitic vol] 90.1 fL 80-94 [facility] Mean corpuscular hemoglobin (MCH) determinationOrdered By: Renard Burgos on 08-26-2024 MCH (RBC) [Entitic mass] 29.7 pg 27.0-32.0 [facility] Mean corpuscular hemoglobin concentration (MCHC) determinationOrdered By: Renard Burgos on 08-26-2024 MCHC (RBC) [Mass/Vol] 33.0 g/dL 32-36 [facility] Mean platelet volume determi nationOrdered By: Renard Burgos on 08-26-2024 Platelet mean volume (Bld) [Entitic vol] 11.3 fL 6.2-12.0 [facility] Monocyte percentageOrdered B y: Renard Burgos on 08-26-2024 Monocytes/100 WBC (Bld) 7.4 % 0-10 [facility] Neutrophil percentageOrdered By: Renard Burgos on 08-26-2024 Neutrophils/100 WBC (Bld) 65.9 % 47-70 [facility] Nucleated red blood cell per centageOrdered By: Renard Burgos on 08-26-2024 Nucleated RBC/100 WBC (Bld) [Ratio] 0 % 0-5 [facility] Platelet countOrdered By: Garrick Bhatt on 08-26-2024 Platelets (Bld) [#/Vol] 196 10*3/uL 150-450 [facility] RBC Auto (Bld) [#/Vol]Ordere d By: Renard Burgos on 08-26-2024 RBC (Bld) [#/Vol] 4.64 10*6/uL 4.6-6.2 [facility] White blood cell (WBC) count Ordered By: Renard Burgos on 08-26-2024 WBC (Bld) [#/Vol] 8.6 10*3/uL 4.4-11.0 [facility] Anion gap in Serum or Plasma Ordered By: Renard Burgos on 08-23-2024 Anion gap [Moles/Vol] 10 mmol/L 5-15 [facility] BUN/creatinine ratioOrdered By: Renard Burgos on 08-23-2024 Urea nitrogen/Creatinine [Mass ratio] 21.4 mg/mg High 10-20 [facility] Bilirubin, totalOrdered By: Renard Burgos on 08-23-2024 Bilirubin [Mass/Vol] 0.35 mg/dL 0.00-1.30 [facility] CBC-Complete Blood Cnt No Di ffon 08-23-2024 Erythrocyte distribution width (RBC) [Ratio] 12.7 % Normal 11.6-14.6 [facility] Comment on above: Order Comment: 109.1 Performed By: #### L 500.4050, L500.4100, L100.0500 ####[facility] [address] [place], [place], [id number] Hematocrit (Bld) [Volume fraction] 42.2 % Normal 40-54 [facility] Comment on above: Order Comment: 109.1 Performed By: #### L 500.4050, L500.4100, L100.0500 ####[facility] [address] [place], [address] Hemoglobin (Bld) [Mass/Vol] 14.0 g/dL Normal 13.0-16.5 [facility] Comment on above: Order Comment: 109.1 Performed By: #### L 500.4050, L500.4100, L100.0500 ####[facility] [address] [place], [address] MCH (RBC) [Entitic mass] 30.0 pg Normal 27.0-32.0 [facility] Comment on above: Order Comment: 109.1 Performed By: #### L 500.4050, L500.4100, L100.0500 ####[facility] [address] [place], [address] MCHC (RBC) [Mass/Vol] 33.2 g/dL Normal 32-36 [facility] Comment on above: Order Comment: 109.1 Performed By: #### L 500.4050, L500.4100, L100.0500 ####[facility] [address] [place], [address] MCV (RBC) [Entitic vol] 90.6 fL Normal 80-94 [facility] Comment on above: Order Comment: 109.1 Performed By: #### L 500.4050, L500.4100, L100.0500 ####[facility] [address] [place], [address] Platelet mean volume (Bld) [Entitic vol] 11.3 fL Normal 6.2-12.0 [facility] Comment on above: Order Comment: 109.1 Performed By: #### L 500.4050, L500.4100, L100.0500 ####[facility] [address] [place], [address] Platelets (Bld) [#/Vol] 184 10*3/uL Normal 150-450 [facility] Comment on above: Order Comment: 109.1 Performed By: #### L 500.4050, L500.4100, L100.0500 ####[facility] [address] [place], [address] RBC (Bld) [#/Vol] 4.66 10*6/uL Normal 4.6-6.2 [facility] Comment on above: Order Comment: 109.1 Performed By: #### L 500.4050, L500.4100, L100.0500 ####[facility] [address] [place], [address] RDW SD 41.8 fl Normal 35.1-43.9 [facility] Comment on above: Order Comment: 109.1 Performed By: #### L 500.4050, L500.4100, L100.0500 ####[facility] [address] [place], [address] WBC (Bld) [#/Vol] 8.6 10*3/uL Normal 4.4-11.0 [facility] Comment on above: Order Comment: 109.1 Performed By: #### L 500.4050, L500.4100, L100.0500 ####[facility] [address] [place], [address] Calculated very low density lipoprotein (VLDL) cholesterol measurementOrdered By: Renard Burgos on 08-23-2024 Calculated very low density lipoprotein (VLDL) cholesterol measurement 40 mg/dL 5-40 [facility] Carbon dioxide, total [Moles /volume] in Central venous bloodOrdered By: Renard Burgos on 08-23-2024 CO2 [Moles/Vol] 24.9 mmol/L 21.0-32.0 [facility] Chloride assayOrdered By: Garrick Bhatt on 08-23-2024 Chloride [Moles/Vol] 106 mmol/L 98-108 [facility] Comprehensive Metabolic Prof ilon 08-23-2024 Albumin [Mass/Vol] 3.4 g/dL Normal 3.4-4.8 [facility] Comment on above: Order Comment: 109.1 Performed By: #### L 500.4050, L500.4100, L100.0500 ####[facility] [address] [place], [address] Albumin/Globulin [Mass ratio] 1.4 {ratio} Normal 0.9-2.4 [facility] Comment on above: Order Comment: 109.1 Performed By: #### L 500.4050, L500.4100, L100.0500 ####[facility] [address] [place], [address] ALK PHOS 101 U/L Normal 40-129 [facility] Comment on above: Order Comment: 109.1 Performed By: #### L 500.4050, L500.4100, L100.0500 ####[facility] [address] [place], [address] ALT [Catalytic activity/Vol] 13 U/L Normal <=46 [facility] Comment on above: Order Comment: 109.1 Performed By: #### L 500.4050, L500.4100, L100.0500 ####[facility] [address] [place], [address] AST [Catalytic activity/Vol] 17 U/L Normal <=37 [facility] Comment on above: Order Comment: 109.1 Performed By: #### L 500.4050, L500.4100, L100.0500 ####[facility] [address] [place], [address] Bilirubin [Mass/Vol] 0.35 mg/dL Normal 0.00-1.30 [facility] Comment on above: Order Comment: 109.1 Performed By: #### L 500.4050, L500.4100, L100.0500 ####[facility] [address] [place], [address] BUN/CRE 21.4 RATIO High 10-20 [facility] Comment on above: Order Comment: 109.1 Performed By: #### L 500.4050, L500.4100, L100.0500 ####[facility] [address] [place], [address] Calcium [Mass/Vol] 8.2 mg/dL Normal 7.6-11.0 [facility] Comment on above: Order Comment: 109.1 Performed By: #### L 500.4050, L500.4100, L100.0500 ####[facility] [address] [place], [address] Chloride [Moles/Vol] 106 mmol/L Normal 98-108 [facility] Comment on above: Order Comment: 109.1 Performed By: #### L 500.4050, L500.4100, L100.0500 ####[facility] [address] [place], [address] CO2 [Moles/Vol] 24.9 mmol/L Normal 21.0-32.0 [facility] Comment on above: Order Comment: 109.1 Performed By: #### L 500.4050, L500.4100, L100.0500 ####[facility] [address] [place], [address] Creatinine [Mass/Vol] 0.63 mg/dL Low 0.70-1.20 [facility] Comment on above: Order Comment: 109.1 Performed By: #### L 500.4050, L500.4100, L100.0500 ####[facility] [address] [place], [address] GAP 10 Normal 5-15 [facility] Comment on above: Order Comment: 109.1 Performed By: #### L 500.4050, L500.4100, L100.0500 ####[facility] [address] [place], [address] GFR/1.73 sq M.predicted among non-blacks MDRD (S/P/Bld) [Vol rate/Area] 104 mL/min/{1.73_m2} Normal >60 [facility] Comment on above: Order Comment: 109.1 Result Comment: mL/m in/1.73m2 CKD-EPI Creatinine Equation (2020) Performed By: #### L 500.4050, L500.4100, L100.0500 ####[facility] [address] [place], [address] Globulin (S) [Mass/Vol] 2.3 g/dL Normal 2.2-4.2 [facility] Comment on above: Order Comment: 109.1 Performed By: #### L 500.4050, L500.4100, L100.0500 ####[facility] [address] [place], [address] Glucose [Mass/Vol] 116 mg/dL High 70-99 [facility] Comment on above: Order Comment: 109.1 Performed By: #### L 500.4050, L500.4100, L100.0500 ####[facility] [address] [place], [address] Potassium [Moles/Vol] 3.8 mmol/L Normal 3.3-5.1 [facility] Comment on above: Order Comment: 109.1 Performed By: #### L 500.4050, L500.4100, L100.0500 ####[facility] [address] [place], [address] Sodium [Moles/Vol] 141 mmol/L Normal 133-145 [facility] Comment on above: Order Comment: 109.1 Performed By: #### L 500.4050, L500.4100, L100.0500 ####[facility] [address] [place], [address] T PROT 5.7 g/dL Low 5.9-8.4 [facility] Comment on above: Order Comment: 109.1 Performed By: #### L 500.4050, L500.4100, L100.0500 ####[facility] [address] [place], [address] Urea nitrogen [Mass/Vol] 14 mg/dL Normal 4-19 [facility] Comment on above: Order Comment: 109.1 Performed By: #### L 500.4050, L500.4100, L100.0500 ####[facility] [address] [place], [address] Erythrocyte distribution wid th ratioOrdered By: Renard Burgos on 08-23-2024 Erythrocyte distribution width (RBC) [Ratio] 12.7 % 11.6-14.6 [facility] Erythrocyte distribution wid th standard deviationOrdered By: Renard Burgos on 08-23-2024 Erythrocyte distribution width (RBC) [Ratio] 41.8 fl 35.1-43.9 [facility] Glomerular filtration rate ( GFR) estimation/1.73 sq m using serum, plasma, or whole bOrdered By: Renard Burgos on 08-23-2024 GFR/1.73 sq M.predicted among non-blacks MDRD (S/P/Bld) [Vol rate/Area] 104 mL/min/{1.73_m2} >60 [facility] Comment on above: mL/min/1.73m2 CKD-EP I Creatinine Equation (2020) Hematocrit Auto (Bld) [Volum e fraction]Ordered By: Renard Burgos on 08-23-2024 Hematocrit (Bld) [Volume fraction] 42.2 % 40-54 [facility] [facility] Hemoglobin measurementOrdere d By: Renard Burgos on 08-23-2024 Hemoglobin (Bld) [Mass/Vol] 14.0 g/dL 13.0-16.5 [facility] LDL calc ser/plasOrdered By: Renard Burgos on 08-23-2024 Cholesterol in LDL [Mass/Vol] 62 mg/dL [facility] Comment on above: Xcswfywnqw=704-510 m g/dL & Higher Kadi=680 mg/dL or greater Laboratory - Chemistry and C hemistry - challengeOrdered By: Renard Burgos on 08-23-2024 AST [Catalytic activity/Vol] 17 U/L <38 [facility] Lipid Profileon 08-23-2024 CHOL:HDL 5.32 Normal [facility] Comment on above: Order Comment: 109.1 Performed By: #### L 500.4050, L500.4100, L100.0500 ####[facility] [address] [place], [address] Cholesterol [Mass/Vol] 125 mg/dL Normal <=200 [facility] Comment on above: Order Comment: 109.1 Result Comment: Chol esterol level, Desirable <200 mg/dLBorderline high cholesterol 200-239 mg/dLHigh cholesterol >=240 mg/dLRecommendations of the NCEP Adult Treatment Panel for thefollowing risk-cutoff thresholds for the [place] Americanpulation. Performed By: #### L 500.4050, L500.4100, L100.0500 ####[facility] [address] [place], [address] Cholesterol in HDL [Mass/Vol] 24 mg/dL Low [facility] Comment on above: Order Comment: 109.1 Result Comment: Lucy onal Cholesterol Education Program (NCEP) guidelines:<40 mg/dL: Low HDL-cholesterol (major risk factor for CHD)>= 60 mg/dL: High HDL-cholesterol (negative risk factor forCHD)HDL-cholesterol is affected by a number of factors, e.g.smoking, exercise, hormones, sex and age. Performed By: #### L 500.4050, L500.4100, L100.0500 ####[facility] [address] [place], [address] Cholesterol in LDL [Mass/Vol] 62 mg/dL Normal [facility] Comment on above: Order Comment: 109.1 Result Comment: Bord cwsyjy=961-163 mg/dL Higher Docp=105 mg/dL or greater Performed By: #### L 500.4050, L500.4100, L100.0500 ####[facility] [address] [place], [address] Cholesterol in VLDL [Mass/Vol] 40 mg/dL Normal 5-40 [facility] Comment on above: Order Comment: 109.1 Performed By: #### L 500.4050, L500.4100, L100.0500 ####[facility] [address] [place], [address] Triglyceride [Mass/Vol] 198 mg/dL Normal [facility] Comment on above: Order Comment: 109.1 Result Comment: The drugs N-Acetylcysteine and Metamizole may falselydepress this assay.Normal range: <150 mg/dLBorderline High: 150-199 mg/dLHigh: 200-499 mg/dLVery High: >500 mg/dL Performed By: #### L 500.4050, L500.4100, L100.0500 ####[facility] [address] [place], [address] MCV (mean corpuscular volume ) determinationOrdered By: Renard Burgos on 08-23-2024 MCV (RBC) [Entitic vol] 90.6 fL 80-94 [facility] Mean corpuscular hemoglobin (MCH) determinationOrdered By: Renard Burgos on 08-23-2024 MCH (RBC) [Entitic mass] 30.0 pg 27.0-32.0 [facility] Mean corpuscular hemoglobin concentration (MCHC) determinationOrdered By: Renard Burgos on 08-23-2024 MCHC (RBC) [Mass/Vol] 33.2 g/dL 32-36 [facility] Mean platelet volume determi nationOrdered By: Renard Burgos on 08-23-2024 Platelet mean volume (Bld) [Entitic vol] 11.3 fL 6.2-12.0 [facility] Platelet countOrdered By: Garrick Bhatt on 08-23-2024 Platelets (Bld) [#/Vol] 184 10*3/uL 150-450 [facility] Potassium measurement (mass/ volume)Ordered By: Renard Burgos on 08-23-2024 Potassium (Unsp spec) [Mass/Vol] 3.8 mmol/L 3.3-5.1 [facility] RBC Auto (Bld) [#/Vol]Ordere d By: Renard Burgos on 08-23-2024 RBC (Bld) [#/Vol] 4.66 10*6/uL 4.6-6.2 [facility] Screening total cholesterol/ high density lipoprotein (HDL) cholesterol ratioOrdered By: Renard Burgos on 08-23-2024 Cholesterol.total/Cecilia sterol in HDL [Mass ratio] 5.32 {ratio} [facility] Serum creatinine measurement (mass/volume)Ordered By: Renard Burgos on 08-23-2024 Creatinine [Mass/Vol] 0.63 mg/dL Low 0.70-1.20 [facility] Serum globulin measurementOr dered By: Renard Burgos on 08-23-2024 Globulin (S) [Mass/Vol] 2.3 g/dL 2.2-4.2 [facility] Serum glucose measurement (m ass/volume)Ordered By: Renard Burgos on 08-23-2024 Glucose [Mass/Vol] 116 mg/dL High 70-99 [facility] Serum or plasma alanine kay otransferase (ALT) measurementOrdered By: Renard Burgos on 08-23-2024 ALT [Catalytic activity/Vol] 13 U/L <47 [facility] Serum or plasma albumin gordy urement (mass/volume)Ordered By: Renard Burgos on 08-23-2024 Albumin [Mass/Vol] 3.4 g/dL 3.4-4.8 [facility] Serum or plasma albumin/glob ulin mass ratioOrdered By: Renard Burgos on 08-23-2024 Albumin/Globulin [Mass ratio] 1.4 {ratio} 0.9-2.4 [facility] Serum or plasma alkaline trace sphatase measurementOrdered By: Renard Burgos on 08-23-2024 ALP [Catalytic activity/Vol] 101 U/L 40-129 [facility] Serum or plasma calcium gordy urement (mass/volume)Ordered By: Renard Burgos on 08-23-2024 Calcium [Mass/Vol] 8.2 mg/dL 7.6-11.0 [facility] Serum or plasma cholesterol in HDL measurement (mass/volume)Ordered By: Renard Burgos on 08-23-2024 Cholesterol in HDL [Mass/Vol] 24 mg/dL Low >40 [facility] Comment on above: National Cholesterol Education Program (NCEP) guidelines:<40 mg/dL: Low HDL-cholesterol (major risk factor for CHD)>= 60 mg/dL: High HDL-cholesterol (negative risk factor for CHD)HDL-cholesterol is affected by a number of factors, e.g. smoking, exercise, hormones, sex and age. Serum or plasma cholesterol measurement (mass/volume)Ordered By: Renard Burgos on 08-23-2024 Cholesterol [Mass/Vol] 125 mg/dL <[address] [facility] Comment on above: Cholesterol level, D esirable <200 mg/dLBorderline high cholesterol 200-239 mg/dLHigh cholesterol >=240 mg/dLRecommendations of the NCEP Adult Treatment Panel for the following risk-cutoff thresholds for the [place] population. Serum or plasma urea nitroge n measurement (mass/volume)Ordered By: Renard Burgos on 08-23-2024 Urea nitrogen [Mass/Vol] 14 mg/dL 4-19 [facility] Sodium levelOrdered By: Lamine Burgos on 08-23-2024 Sodium [Moles/Vol] 141 mmol/L 133-145 [facility] Total proteinOrdered By: Lyubov Burgos on 08-23-2024 Protein [Mass/Vol] 5.7 g/dL Low 5.9-8.4 [facility] Triglycerides measurementOrd ered By: Renard Burgos on 08-23-2024 Triglyceride [Mass/Vol] 198 mg/dL <199 [facility] Comment on above: The drugs N-Acetylcy steine and Metamizole may falsely depress this assay. Normal range: <150 mg/dLBorderline High: 150-199 mg/dLHigh: 200-499 mg/dLVery High: >500 mg/dL White blood cell (WBC) count Ordered By: Renard Burgos on 08-23-2024 WBC (Bld) [#/Vol] 8.6 10*3/uL 4.4-11.0 [facility] Absolute lymphocyte countOrd ered By: Renard Burgos on 08-19-2024 Lymphocytes Auto (Unsp spec) [#/Vol] 1.97 10*3/uL 0.83-4.51 [facility] Absolute neutrophil countOrd ered By: Renard Burgos on 08-19-2024 Neutrophils (Bld) [#/Vol] 5.0 10*3/uL 2.0-7.7 [facility] Automated lymphocyte count a s percentage of total leukocytesOrdered By: Renard Burgos on 08-19-2024 Lymphocytes/100 WBC Auto (Unsp spec) 25.4 % 19-41 [facility] Basophil percentageOrdered B y: Renard Burgos on 08-19-2024 Basophils/100 WBC (Bld) 0.5 % 0-1 [facility] CBC W/Diff, Automatedon 07-31 Absolute Lymph 1.97 X10 3/uL Normal 0.83-4.51 [facility] Comment on above: Order Comment: 109 Performed By: #### L 100.0100 ####[facility] [address] [facility] [place], [address] Absolute Neut 5.0 X10 3/uL Normal 2.0-7.7 [facility] Comment on above: Order Comment: 109 Performed By: #### L 100.0100 ####[facility] [address] [place], [address] Basophils/100 WBC (Bld) 0.5 % Normal 0-1 [facility] Comment on above: Order Comment: 109 Performed By: #### L 100.0100 ####[facility] [address] [place], [address] Eosinophils/100 WBC (Bld) 1.0 % Normal 0-5 [facility] Comment on above: Order Comment: 109 Performed By: #### L 100.0100 ####[facility] [address] [place], [address] Erythrocyte distribution width (RBC) [Ratio] 12.7 % Normal 11.6-14.6 [facility] Comment on above: Order Comment: 109 Performed By: #### L 100.0100 ####[facility] [address] [place], [address] Hematocrit (Bld) [Volume fraction] 41.0 % Normal 40-54 [facility] Comment on above: Order Comment: 109 Performed By: #### L 100.0100 ####[facility] [address] [place], [address] Hemoglobin (Bld) [Mass/Vol] 13.6 g/dL Normal 13.0-16.5 [facility] Comment on above: Order Comment: 109 Performed By: #### L 100.0100 ####[facility] [address] [place], [address] IG% 0.400 Normal 0.0-0.9 [facility] Comment on above: Order Comment: 109 Result Comment: IG% - Immature Granulocytes (promyelocytes, myelocytes andmetamyelocytes) > 1% indicates that a LEFT SHIFT is Present. Performed By: #### L 100.0100 ####[facility] [address] [place], [address] Lymphocytes/100 WBC (Bld) 25.4 % Normal 19-41 [facility] Comment on above: Order Comment: 109 Performed By: #### L 100.0100 ####[facility] [address] [place], [address] MCH (RBC) [Entitic mass] 30.2 pg Normal 27.0-32.0 [facility] Comment on above: Order Comment: 109 Performed By: #### L 100.0100 ####[facility] [address] [place], [address] MCHC (RBC) [Mass/Vol] 33.2 g/dL Normal 32-36 [facility] Comment on above: Order Comment: 109 Performed By: #### L 100.0100 ####[facility] [address] [place], [address] MCV (RBC) [Entitic vol] 91.1 fL Normal 80-94 [facility] Comment on above: Order Comment: 109 Performed By: #### L 100.0100 ####[facility] [address] [place], [address] Monocytes/100 WBC (Bld) 8.2 % Normal 0-10 [facility] Comment on above: Order Comment: 109 Performed By: #### L 100.0100 ####[facility] [address] [place], [address] Neutrophils/100 WBC (Bld) 64.5 % Normal 47-70 [facility] Comment on above: Order Comment: 109 Performed By: #### L 100.0100 ####[facility] [address] [place], [address] Nucleated RBC (Bld) [#/Vol] 0 10*3/uL Normal 0-5 [facility] Comment on above: Order Comment: 109 Performed By: #### L 100.0100 ####[facility] [address] [place], [address] Platelet mean volume (Bld) [Entitic vol] 11.1 fL Normal 6.2-12.0 [facility] Comment on above: Order Comment: 109 Performed By: #### L 100.0100 ####[facility] [address] [place], [address] Platelets (Bld) [#/Vol] 207 10*3/uL Normal 150-450 [facility] Comment on above: Order Comment: 109 Performed By: #### L 100.0100 ####[facility] [address] [place], [address] RBC (Bld) [#/Vol] 4.50 10*6/uL Low 4.6-6.2 [facility] Comment on above: Order Comment: 109 Performed By: #### L 100.0100 ####[facility] [address] [place], [address] RDW SD 42.0 fl Normal 35.1-43.9 [facility] Comment on above: Order Comment: 109 Performed By: #### L 100.0100 ####[facility] [address] [place], [address] WBC (Bld) [#/Vol] 7.8 10*3/uL Normal 4.4-11.0 [facility] Comment on above: Order Comment: 109 Performed By: #### L 100.0100 ####[facility] [address] [place], [address] Eosinophil percentageOrdered By: Renard Burgos on 08-19-2024 Eosinophils/100 WBC (Bld) 1.0 % 0-5 [facility] Erythrocyte distribution wid th ratioOrdered By: Renard Burgos on 08-19-2024 Erythrocyte distribution width (RBC) [Ratio] 12.7 % 11.6-14.6 [facility] Erythrocyte distribution wid th standard deviationOrdered By: Renard Burgos on 08-19-2024 Erythrocyte distribution width (RBC) [Ratio] 42.0 fl 35.1-43.9 [facility] Hematocrit Auto (Bld) [Volum e fraction]Ordered By: Renard Burgos on 08-19-2024 Hematocrit (Bld) [Volume fraction] 41.0 % 40-54 [facility] Hemoglobin measurementOrdere d By: Renard Burgos on 08-19-2024 Hemoglobin (Bld) [Mass/Vol] 13.6 g/dL 13.0-16.5 [facility] Immature granulocytes/100 WB C Auto (Bld)Ordered By: Renard Burgos on 08-19-2024 Immature granulocytes/100 WBC (Bld) 0.400 % 0.0-0.9 [facility] Comment on above: IG% - Immature Granu locytes (promyelocytes, myelocytes and metamyelocytes) > 1% indicates that a LEFT SHIFT is Present. MCV (mean corpuscular volume ) determinationOrdered By: Renard Burgos on 08-19-2024 MCV (RBC) [Entitic vol] 91.1 fL 80-94 [facility] Mean corpuscular hemoglobin (MCH) determinationOrdered By: Renard Burgos on 08-19-2024 MCH (RBC) [Entitic mass] 30.2 pg 27.0-32.0 [facility] Mean corpuscular hemoglobin concentration (MCHC) determinationOrdered By: Renard Burgos on 08-19-2024 MCHC (RBC) [Mass/Vol] 33.2 g/dL 32-36 [facility] Mean platelet volume determi nationOrdered By: Renard Burgos on 08-19-2024 Platelet mean volume (Bld) [Entitic vol] 11.1 fL 6.2-12.0 [facility] Monocyte percentageOrdered B y: Renard Burgos on 08-19-2024 Monocytes/100 WBC (Bld) 8.2 % 0-10 [facility] Neutrophil percentageOrdered By: Renard Burgos on 08-19-2024 Neutrophils/100 WBC (Bld) 64.5 % 47-70 [facility] Nucleated red blood cell per centageOrdered By: Renard Burgos on 08-19-2024 Nucleated RBC/100 WBC (Bld) [Ratio] 0 % 0-5 [facility] Platelet countOrdered By: Grarick Bhatt on 08-19-2024 Platelets (Bld) [#/Vol] 207 10*3/uL 150-450 [facility] RBC Auto (Bld) [#/Vol]Ordere d By: Renard Burgos on 08-19-2024 RBC (Bld) [#/Vol] 4.50 10*6/uL Low 4.6-6.2 [facility] White blood cell (WBC) count Ordered By: Renard Burgos on 08-19-2024 WBC (Bld) [#/Vol] 7.8 10*3/uL 4.4-11.0 [facility] Absolute lymphocyte countOrd ered By: Renard Burgos on 08-12-2024 Lymphocytes Auto (Unsp spec) [#/Vol] 2.09 10*3/uL 0.83-4.51 [facility] Absolute neutrophil countOrd ered By: Renard Burgos on 08-12-2024 Neutrophils (Bld) [#/Vol] 5.0 10*3/uL 2.0-7.7 [facility] Automated lymphocyte count a s percentage of total leukocytesOrdered By: Renard Burgos on 08-12-2024 Lymphocytes/100 WBC Auto (Unsp spec) 27.0 % 19-41 [facility] Basophil percentageOrdered B y: Renard Burgos on 08-12-2024 Basophils/100 WBC (Bld) 0.5 % 0-1 [facility] CBC W/Diff, Automatedon 07-30 Absolute Lymph 2.09 X10 3/uL Normal 0.83-4.51 [facility] Comment on above: Order Comment: 109.1 Performed By: #### L 100.0100 ####[facility] [address] [place], [address] Absolute Neut 5.0 X10 3/uL Normal 2.0-7.7 [facility] Comment on above: Order Comment: 109.1 Performed By: #### L 100.0100 ####[facility] [address] [place], [address] Basophils/100 WBC (Bld) 0.5 % Normal 0-1 [facility] Comment on above: Order Comment: 109.1 Performed By: #### L 100.0100 ####[facility] [address] [place], [address] Eosinophils/100 WBC (Bld) 0.9 % Normal 0-5 [facility] Comment on above: Order Comment: 109.1 Performed By: #### L 100.0100 ####[facility] [address] [place], [address] Erythrocyte distribution width (RBC) [Ratio] 12.7 % Normal 11.6-14.6 [facility] Comment on above: Order Comment: 109.1 Performed By: #### L 100.0100 ####[facility] [address] [place], [address] Hematocrit (Bld) [Volume fraction] 41.9 % Normal 40-54 [facility] Comment on above: Order Comment: 109.1 Performed By: #### L 100.0100 ####[facility] [address] [place], [address] Hemoglobin (Bld) [Mass/Vol] 14.1 g/dL Normal 13.0-16.5 [facility] Comment on above: Order Comment: 109.1 Performed By: #### L 100.0100 ####[facility] [address] [place], [address] IG% 0.300 Normal 0.0-0.9 [facility] Comment on above: Order Comment: 109.1 Result Comment: IG% - Immature Granulocytes (promyelocytes, myelocytes andmetamyelocytes) > 1% indicates that a LEFT SHIFT is Present. Performed By: #### L 100.0100 ####[facility] [address] [place], [address] Lymphocytes/100 WBC (Bld) 27.0 % Normal 19-41 [facility] Comment on above: Order Comment: 109.1 Performed By: #### L 100.0100 ####[facility] [address] [place], [address] MCH (RBC) [Entitic mass] 30.3 pg Normal 27.0-32.0 [facility] Comment on above: Order Comment: 109.1 Performed By: #### L 100.0100 ####[facility] [address] [place], [address] MCHC (RBC) [Mass/Vol] 33.7 g/dL Normal 32-36 [facility] Comment on above: Order Comment: 109.1 Performed By: #### L 100.0100 ####[facility] [address] [place], [address] MCV (RBC) [Entitic vol] 90.1 fL Normal 80-94 [facility] Comment on above: Order Comment: 109.1 Performed By: #### L 100.0100 ####[facility] [address] [place], [address] Monocytes/100 WBC (Bld) 7.1 % Normal 0-10 [facility] Comment on above: Order Comment: 109.1 Performed By: #### L 100.0100 ####[facility] [address] [place], [address] Neutrophils/100 WBC (Bld) 64.2 % Normal 47-70 [facility] Comment on above: Order Comment: 109.1 Performed By: #### L 100.0100 ####[facility] [address] [place], [address] Nucleated RBC (Bld) [#/Vol] 0 10*3/uL Normal 0-5 [facility] Comment on above: Order Comment: 109.1 Performed By: #### L 100.0100 ####[facility] [address] [place], [address] Platelet mean volume (Bld) [Entitic vol] 11.2 fL Normal 6.2-12.0 [facility] Comment on above: Order Comment: 109.1 Performed By: #### L 100.0100 ####[facility] [address] [place], [address] Platelets (Bld) [#/Vol] 188 10*3/uL Normal 150-450 [facility] Comment on above: Order Comment: 109.1 Performed By: #### L 100.0100 ####[facility] [address] [place], [address] RBC (Bld) [#/Vol] 4.65 10*6/uL Normal 4.6-6.2 [facility] Comment on above: Order Comment: 109.1 Performed By: #### L 100.0100 ####[facility] [address] [place], [address] RDW SD 41.6 fl Normal 35.1-43.9 [facility] Comment on above: Order Comment: 109.1 Performed By: #### L 100.0100 ####[facility] [address] [place], [address] WBC (Bld) [#/Vol] 7.8 10*3/uL Normal 4.4-11.0 [facility] Comment on above: Order Comment: 109.1 Performed By: #### L 100.0100 ####[facility] [address] [place], [address] Eosinophil percentageOrdered By: Renard Burgos on 08-12-2024 Eosinophils/100 WBC (Bld) 0.9 % 0-5 [facility] Erythrocyte distribution wid th (RBC) [Ratio]Ordered By: Renard Burgos on 08-12-2024 Erythrocyte distribution width (RBC) [Entitic vol] 41.6 fL 35.1-43.9 [facility] Erythrocyte distribution wid th ratioOrdered By: Renard Burgos on 08-12-2024 Erythrocyte distribution width (RBC) [Ratio] 12.7 % 11.6-14.6 [facility] Erythrocyte distribution wid th standard deviationOrdered By: Renard Burgos on 08-12-2024 Erythrocyte distribution width (RBC) [Ratio] 41.6 fl 35.1-43.9 [facility] Hematocrit Auto (Bld) [Volum e fraction]Ordered By: Renard Burgos on 08-12-2024 Hematocrit (Bld) [Volume fraction] 41.9 % 40-54 [facility] Hemoglobin measurementOrdere d By: Renard Burgos on 08-12-2024 Hemoglobin (Bld) [Mass/Vol] 14.1 g/dL 13.0-16.5 [facility] Immature granulocytes/100 WB C Auto (Bld)Ordered By: Renard Burgos on 08-12-2024 Immature granulocytes/100 WBC (Bld) 0.300 % 0.0-0.9 [facility] Comment on above: IG% - Immature Granu locytes (promyelocytes, myelocytes and metamyelocytes) > 1% indicates that a LEFT SHIFT is Present. Lymphocytes Auto (Unsp spec) [#/Vol]Ordered By: Renard Burgos on 08-12-2024 Lymphocytes (Bld) [#/Vol] 2.09 10*3/uL 0.83-4.51 [facility] Lymphocytes/100 WBC Auto (Un sp spec)Ordered By: Renard Burgos on 08-12-2024 Lymphocytes/100 WBC (Bld) 27.0 % 19-41 [facility] MCV (mean corpuscular volume ) determinationOrdered By: Renard Burgos on 08-12-2024 MCV (RBC) [Entitic vol] 90.1 fL 80-94 [facility] Mean corpuscular hemoglobin (MCH) determinationOrdered By: Renard Burgos on 08-12-2024 MCH (RBC) [Entitic mass] 30.3 pg 27.0-32.0 [facility] Mean corpuscular hemoglobin concentration (MCHC) determinationOrdered By: Renard Burgos on 08-12-2024 MCHC (RBC) [Mass/Vol] 33.7 g/dL 32-36 [facility] Mean platelet volume determi nationOrdered By: Renard Burgos on 08-12-2024 Platelet mean volume (Bld) [Entitic vol] 11.2 fL 6.2-12.0 [facility] Monocyte percentageOrdered B y: Renard Burgos on 08-12-2024 Monocytes/100 WBC (Bld) 7.1 % 0-10 [facility] Neutrophil percentageOrdered By: Renard Burgos on 08-12-2024 Neutrophils/100 WBC (Bld) 64.2 % 47-70 [facility] Nucleated red blood cell per centageOrdered By: Renard Burgos on 08-12-2024 Nucleated RBC/100 WBC (Bld) [Ratio] 0 % 0-5 [facility] Platelet countOrdered By: Garrick Bhatt on 08-12-2024 Platelets (Bld) [#/Vol] 188 10*3/uL 150-450 [facility] RBC Auto (Bld) [#/Vol]Ordere d By: Renard Burgos on 08-12-2024 RBC (Bld) [#/Vol] 4.65 10*6/uL 4.6-6.2 [facility] White blood cell (WBC) count Ordered By: Renard Burgos on 08-12-2024 WBC (Bld) [#/Vol] 7.8 10*3/uL 4.4-11.0 [facility] Absolute lymphocyte countOrd ered By: Renard Burgos on 08-05-2024 Lymphocytes Auto (Unsp spec) [#/Vol] 2.31 10*3/uL 0.83-4.51 [facility] Absolute neutrophil countOrd ered By: Renard Burgos on 08-05-2024 Neutrophils (Bld) [#/Vol] 5.4 10*3/uL 2.0-7.7 [facility] Automated lymphocyte count a s percentage of total leukocytesOrdered By: Renard Burgos on 08-05-2024 Lymphocytes/100 WBC Auto (Unsp spec) 26.9 % 19-41 [facility] Basophil percentageOrdered B y: Renard Burgos on 08-05-2024 Basophils/100 WBC (Bld) 0.6 % 0-1 [facility] CBC W/Diff, Automatedon Absolute Lymph 2.31 X10 3/uL Normal 0.83-4.51 [facility] [facility] Comment on above: Order Comment: 109.1 Performed By: #### L 100.0100 ####[facility] [address] [place], [place], [id number] Absolute Neut 5.4 X10 3/uL Normal 2.0-7.7 [facility] Comment on above: Order Comment: 109.1 Performed By: #### L 100.0100 ####[facility] [address] [place], [address] Basophils/100 WBC (Bld) 0.6 % Normal 0-1 [facility] Comment on above: Order Comment: 109.1 Performed By: #### L 100.0100 ####[facility] [address] [place], [address] Eosinophils/100 WBC (Bld) 0.8 % Normal 0-5 [facility] Comment on above: Order Comment: 109.1 Performed By: #### L 100.0100 ####[facility] [address] [place], [address] Erythrocyte distribution width (RBC) [Ratio] 12.7 % Normal 11.6-14.6 [facility] Comment on above: Order Comment: 109.1 Performed By: #### L 100.0100 ####[facility] [address] [place], [address] Hematocrit (Bld) [Volume fraction] 41.6 % Normal 40-54 [facility] Comment on above: Order Comment: 109.1 Performed By: #### L 100.0100 ####[facility] [address] [place], [address] Hemoglobin (Bld) [Mass/Vol] 13.7 g/dL Normal 13.0-16.5 [facility] Comment on above: Order Comment: 109.1 Performed By: #### L 100.0100 ####[facility] [address] [place], [address] IG% 0.300 Normal 0.0-0.9 [facility] Comment on above: Order Comment: 109.1 Result Comment: IG% - Immature Granulocytes (promyelocytes, myelocytes andmetamyelocytes) > 1% indicates that a LEFT SHIFT is Present. Performed By: #### L 100.0100 ####[facility] [address] [place], [address] Lymphocytes/100 WBC (Bld) 26.9 % Normal 19-41 [facility] Comment on above: Order Comment: 109.1 Performed By: #### L 100.0100 ####[facility] [address] [place], [address] MCH (RBC) [Entitic mass] 30.1 pg Normal 27.0-32.0 [facility] Comment on above: Order Comment: 109.1 Performed By: #### L 100.0100 ####[facility] [address] [place], [address] MCHC (RBC) [Mass/Vol] 32.9 g/dL Normal 32-36 [facility] Comment on above: Order Comment: 109.1 Performed By: #### L 100.0100 ####[facility] [address] [place], [address] MCV (RBC) [Entitic vol] 91.4 fL Normal 80-94 [facility] Comment on above: Order Comment: 109.1 Performed By: #### L 100.0100 ####[facility] [address] [place], [address] Monocytes/100 WBC (Bld) 8.3 % Normal 0-10 [facility] Comment on above: Order Comment: 109.1 Performed By: #### L 100.0100 ####[facility] [address] [place], [address] Neutrophils/100 WBC (Bld) 63.1 % Normal 47-70 [facility] Comment on above: Order Comment: 109.1 Performed By: #### L 100.0100 ####[facility] [address] [place], [address] Nucleated RBC (Bld) [#/Vol] 0 10*3/uL Normal 0-5 [facility] Comment on above: Order Comment: 109.1 Performed By: #### L 100.0100 ####[facility] [address] [place], [address] Platelet mean volume (Bld) [Entitic vol] 11.1 fL Normal 6.2-12.0 [facility] Comment on above: Order Comment: 109.1 Performed By: #### L 100.0100 ####[facility] [address] [place], [address] Platelets (Bld) [#/Vol] 199 10*3/uL Normal 150-450 [facility] Comment on above: Order Comment: 109.1 Performed By: #### L 100.0100 ####[facility] [address] [place], [address] RBC (Bld) [#/Vol] 4.55 10*6/uL Low 4.6-6.2 [facility] Comment on above: Order Comment: 109.1 Performed By: #### L 100.0100 ####[facility] [address] [place], [address] RDW SD 42.5 fl Normal 35.1-43.9 [facility] Comment on above: Order Comment: 109.1 Performed By: #### L 100.0100 ####[facility] [address] [place], [address] WBC (Bld) [#/Vol] 8.6 10*3/uL Normal 4.4-11.0 [facility] Comment on above: Order Comment: 109.1 Performed By: #### L 100.0100 ####[facility] [address] [place], [address] Eosinophil percentageOrdered By: Renard Burgos on 08-05-2024 Eosinophils/100 WBC (Bld) 0.8 % 0-5 [facility] Erythrocyte distribution wid th (RBC) [Ratio]Ordered By: Renard Burgos on 08-05-2024 Erythrocyte distribution width (RBC) [Entitic vol] 42.5 fL 35.1-43.9 [facility] Erythrocyte distribution wid th ratioOrdered By: Renard Burgos on 08-05-2024 Erythrocyte distribution width (RBC) [Ratio] 12.7 % 11.6-14.6 [facility] Erythrocyte distribution wid th standard deviationOrdered By: Renard Burgos on 08-05-2024 Erythrocyte distribution width (RBC) [Ratio] 42.5 fl 35.1-43.9 [facility] Hematocrit Auto (Bld) [Volum e fraction]Ordered By: Renard Burgos on 08-05-2024 Hematocrit (Bld) [Volume fraction] 41.6 % 40-54 [facility] Hemoglobin measurementOrdere d By: Renard Burgos on 08-05-2024 Hemoglobin (Bld) [Mass/Vol] 13.7 g/dL 13.0-16.5 [facility] Immature granulocytes/100 WB C Auto (Bld)Ordered By: Renard Burgos on 08-05-2024 Immature granulocytes/100 WBC (Bld) 0.300 % 0.0-0.9 [facility] Comment on above: IG% - Immature Granu locytes (promyelocytes, myelocytes and metamyelocytes) > 1% indicates that a LEFT SHIFT is Present. Lymphocytes Auto (Unsp spec) [#/Vol]Ordered By: Renard Burgos on 08-05-2024 Lymphocytes (Bld) [#/Vol] 2.31 10*3/uL 0.83-4.51 [facility] Lymphocytes/100 WBC Auto (Un sp spec)Ordered By: Renard Burgos on 08-05-2024 Lymphocytes/100 WBC (Bld) 26.9 % 19-41 [facility] MCV (mean corpuscular volume ) determinationOrdered By: Renard Burgos on 08-05-2024 MCV (RBC) [Entitic vol] 91.4 fL 80-94 [facility] Mean corpuscular hemoglobin (MCH) determinationOrdered By: Renard Burgos on 08-05-2024 MCH (RBC) [Entitic mass] 30.1 pg 27.0-32.0 [facility] Mean corpuscular hemoglobin concentration (MCHC) determinationOrdered By: Renard Burgos on 08-05-2024 MCHC (RBC) [Mass/Vol] 32.9 g/dL 32-36 [facility] Mean platelet volume determi nationOrdered By: Renard Burgos on 08-05-2024 Platelet mean volume (Bld) [Entitic vol] 11.1 fL 6.2-12.0 [facility] Monocyte percentageOrdered B y: Renard Burgos on 08-05-2024 Monocytes/100 WBC (Bld) 8.3 % 0-10 [facility] Neutrophil percentageOrdered By: Renard Burgos on 08-05-2024 Neutrophils/100 WBC (Bld) 63.1 % 47-70 [facility] Nucleated red blood cell per centageOrdered By: Renard Burgos on 08-05-2024 Nucleated RBC/100 WBC (Bld) [Ratio] 0 % 0-5 [facility] Platelet countOrdered By: Garrick Bhatt on 08-05-2024 Platelets (Bld) [#/Vol] 199 10*3/uL 150-450 [facility] RBC Auto (Bld) [#/Vol]Ordere d By: Renard Burgos on 08-05-2024 RBC (Bld) [#/Vol] 4.55 10*6/uL Low 4.6-6.2 [facility] White blood cell (WBC) count Ordered By: Renard Burgos on 08-05-2024 WBC (Bld) [#/Vol] 8.6 10*3/uL 4.4-11.0 [facility] Absolute lymphocyte countOrd ered By: Renard Burgos on 07-29-2024 Lymphocytes Auto (Unsp spec) [#/Vol] 1.93 10*3/uL 0.83-4.51 [facility] Absolute neutrophil countOrd ered By: Renard Burgos on 07-29-2024 Neutrophils (Bld) [#/Vol] 6.8 10*3/uL 2.0-7.7 [facility] Automated lymphocyte count a s percentage of total leukocytesOrdered By: Renard Burgos on 07-29-2024 Lymphocytes/100 WBC Auto (Unsp spec) 20.2 % 19-41 [facility] Basophil percentageOrdered B y: Renard Burgos on 07-29-2024 Basophils/100 WBC (Bld) 0.5 % 0-1 [facility] CBC W/Diff, Automatedon 07-01 Absolute Lymph 1.93 X10 3/uL Normal 0.83-4.51 [facility] Comment on above: Order Comment: 109-1 Performed By: #### L 100.0100 ####[facility] [address] [place], [address] Absolute Neut 6.8 X10 3/uL Normal 2.0-7.7 [facility] Comment on above: Order Comment: 109-1 Performed By: #### L 100.0100 ####[facility] [address] [place], [address] Basophils/100 WBC (Bld) 0.5 % Normal 0-1 [facility] Comment on above: Order Comment: 109-1 Performed By: #### L 100.0100 ####[facility] [address] [place], [address] Eosinophils/100 WBC (Bld) 0.7 % Normal 0-5 [facility] Comment on above: Order Comment: 109-1 Performed By: #### L 100.0100 ####[facility] [address] [place], [address] Erythrocyte distribution width (RBC) [Ratio] 12.8 % Normal 11.6-14.6 [facility] Comment on above: Order Comment: 109-1 Performed By: #### L 100.0100 ####[facility] [address] [place], [address] Hematocrit (Bld) [Volume fraction] 40.7 % Normal 40-54 [facility] Comment on above: Order Comment: 109-1 Performed By: #### L 100.0100 ####[facility] [address] [place], [address] Hemoglobin (Bld) [Mass/Vol] 13.5 g/dL Normal 13.0-16.5 [facility] Comment on above: Order Comment: 109-1 Performed By: #### L 100.0100 ####[facility] [address] [place], [address] IG% 0.400 Normal 0.0-0.9 [facility] Comment on above: Order Comment: 109-1 Result Comment: IG% - Immature Granulocytes (promyelocytes, myelocytes andmetamyelocytes) > 1% indicates that a LEFT SHIFT is Present. Performed By: #### L 100.0100 ####[facility] [address] [place], [address] Lymphocytes/100 WBC (Bld) 20.2 % Normal 19-41 [facility] Comment on above: Order Comment: 109-1 Performed By: #### L 100.0100 ####[facility] [address] [place], [address] MCH (RBC) [Entitic mass] 29.9 pg Normal 27.0-32.0 [facility] Comment on above: Order Comment: 109-1 Performed By: #### L 100.0100 ####[facility] [address] [place], [address] MCHC (RBC) [Mass/Vol] 33.2 g/dL Normal 32-36 [facility] Comment on above: Order Comment: 109-1 Performed By: #### L 100.0100 ####[facility] [address] [place], [address] MCV (RBC) [Entitic vol] 90.0 fL Normal 80-94 [facility] Comment on above: Order Comment: 109-1 Performed By: #### L 100.0100 ####[facility] [address] [place], [address] Monocytes/100 WBC (Bld) 7.1 % Normal 0-10 [facility] Comment on above: Order Comment: 109-1 Performed By: #### L 100.0100 ####[facility] [address] [place], [address] Neutrophils/100 WBC (Bld) 71.1 % High 47-70 [facility] Comment on above: Order Comment: 109-1 Performed By: #### L 100.0100 ####[facility] [address] [place], [address] Nucleated RBC (Bld) [#/Vol] 0 10*3/uL Normal 0-5 [facility] Comment on above: Order Comment: 109-1 Performed By: #### L 100.0100 ####[facility] [address] [place], [address] Platelet mean volume (Bld) [Entitic vol] 11.2 fL Normal 6.2-12.0 [facility] Comment on above: Order Comment: 109-1 Performed By: #### L 100.0100 ####[facility] [address] [place], [address] Platelets (Bld) [#/Vol] 218 10*3/uL Normal 150-450 [facility] Comment on above: Order Comment: 109-1 Performed By: #### L 100.0100 ####[facility] [address] [place], [address] RBC (Bld) [#/Vol] 4.52 10*6/uL Low 4.6-6.2 [facility] Comment on above: Order Comment: 109-1 Performed By: #### L 100.0100 ####[facility] [address] [place], [address] RDW SD 41.9 fl Normal 35.1-43.9 [facility] Comment on above: Order Comment: 109-1 Performed By: #### L 100.0100 ####[facility] [address] [place], [place], [address] WBC (Bld) [#/Vol] 9.6 10*3/uL Normal 4.4-11.0 [facility] Comment on above: Order Comment: 109-1 Performed By: #### L 100.0100 ####[facility] [address] [place], [place], [id number] Eosinophil percentageOrdered By: Renard Burgos on 07-29-2024 Eosinophils/100 WBC (Bld) 0.7 % 0-5 [facility] Erythrocyte distribution wid th ratioOrdered By: Renard Burgos on 07-29-2024 Erythrocyte distribution width (RBC) [Ratio] 12.8 % 11.6-14.6 [facility] Erythrocyte distribution wid th standard deviationOrdered By: Renard Burgos on 07-29-2024 Erythrocyte distribution width (RBC) [Entitic vol] 41.9 fL 35.1-43.9 [facility] Erythrocyte distribution width (RBC) [Ratio] 41.9 fl 35.1-43.9 [facility] Hematocrit Auto (Bld) [Volum e fraction]Ordered By: Renard Burgos on 07-29-2024 Hematocrit (Bld) [Volume fraction] 40.7 % 40-54 [facility] Hemoglobin measurementOrdere d By: Renard Burgos on 07-29-2024 Hemoglobin (Bld) [Mass/Vol] 13.5 g/dL 13.0-16.5 [facility] Immature granulocytes/100 WB C Auto (Bld)Ordered By: Renard Burgos on 07-29-2024 Immature granulocytes/100 WBC (Bld) 0.400 % 0.0-0.9 [facility] Comment on above: IG% - Immature Granu locytes (promyelocytes, myelocytes and metamyelocytes) > 1% indicates that a LEFT SHIFT is Present. Lymphocytes Auto (Unsp spec) [#/Vol]Ordered By: Renard Burgos on 07-29-2024 Lymphocytes (Bld) [#/Vol] 1.93 10*3/uL 0.83-4.51 [facility] Lymphocytes/100 WBC Auto (Un sp spec)Ordered By: Renard Burgos on 07-29-2024 Lymphocytes/100 WBC (Bld) 20.2 % 19-41 [facility] MCV (mean corpuscular volume ) determinationOrdered By: Renard Burgos on 07-29-2024 MCV (RBC) [Entitic vol] 90.0 fL 80-94 [facility] Mean corpuscular hemoglobin (MCH) determinationOrdered By: Renard Burgos on 07-29-2024 MCH (RBC) [Entitic mass] 29.9 pg 27.0-32.0 [facility] Mean corpuscular hemoglobin concentration (MCHC) determinationOrdered By: Renard Burgos on 07-29-2024 MCHC (RBC) [Mass/Vol] 33.2 g/dL 32-36 [facility] Mean platelet volume determi nationOrdered By: Renard Burgos on 07-29-2024 Platelet mean volume (Bld) [Entitic vol] 11.2 fL 6.2-12.0 [facility] Monocyte percentageOrdered B y: Renard Burgos on 07-29-2024 Monocytes/100 WBC (Bld) 7.1 % 0-10 [facility] Neutrophil percentageOrdered By: Renard Burgos on 07-29-2024 Neutrophils/100 WBC (Bld) 71.1 % High 47-70 [facility] Nucleated red blood cell per centageOrdered By: Renard Burgos on 07-29-2024 Nucleated RBC/100 WBC (Bld) [Ratio] 0 % 0-5 [facility] Platelet countOrdered By: Garrick Bhatt on 07-29-2024 Platelets (Bld) [#/Vol] 218 10*3/uL 150-450 [facility] RBC Auto (Bld) [#/Vol]Ordere d By: Renard Burgos on 07-29-2024 RBC (Bld) [#/Vol] 4.52 10*6/uL Low 4.6-6.2 [facility] White blood cell (WBC) count Ordered By: Renard Burgos on 07-29-2024 WBC (Bld) [#/Vol] 9.6 10*3/uL 4.4-11.0 [facility] Absolute lymphocyte countOrd ered By: Renard Burgos on 07-22-2024 Lymphocytes Auto (Unsp spec) [#/Vol] 1.90 10*3/uL 0.83-4.51 [facility] Absolute neutrophil countOrd ered By: Renard Hensleydiego on 07-22-2024 Neutrophils (Bld) [#/Vol] 5.2 10*3/uL 2.0-7.7 [facility] Automated lymphocyte count a s percentage of total leukocytesOrdered By: Renard Burgos on 07-22-2024 Lymphocytes/100 WBC Auto (Unsp spec) 23.9 % 19-41 [facility] Basophil percentageOrdered B y: Renard Burgos on 07-22-2024 Basophils/100 WBC (Bld) 0.6 % 0-1 [facility] CBC W/Diff, Automatedon 06-30 Absolute Lymph 1.90 X10 3/uL Normal 0.83-4.51 [facility] Comment on above: Order Comment: 109.1 Performed By: #### L 100.0100 ####[facility] [address] [place], [address] Absolute Neut 5.2 X10 3/uL Normal 2.0-7.7 [facility] Comment on above: Order Comment: 109.1 Performed By: #### L 100.0100 ####[facility] [address] [place], [address] Basophils/100 WBC (Bld) 0.6 % Normal 0-1 [facility] Comment on above: Order Comment: 109.1 Performed By: #### L 100.0100 ####[facility] [address] [place], [address] Eosinophils/100 WBC (Bld) 0.9 % Normal 0-5 [facility] Comment on above: Order Comment: 109.1 Performed By: #### L 100.0100 ####[facility] [address] [place], [address] Erythrocyte distribution width (RBC) [Ratio] 12.9 % Normal 11.6-14.6 [facility] Comment on above: Order Comment: 109.1 Performed By: #### L 100.0100 ####[facility] [address] [place], [address] Hematocrit (Bld) [Volume fraction] 41.4 % Normal 40-54 [facility] Comment on above: Order Comment: 109.1 Performed By: #### L 100.0100 ####[facility] [address] [place], [address] Hemoglobin (Bld) [Mass/Vol] 13.5 g/dL Normal 13.0-16.5 [facility] Comment on above: Order Comment: 109.1 Performed By: #### L 100.0100 ####[facility] [address] [place], [address] IG% 0.300 Normal 0.0-0.9 [facility] Comment on above: Order Comment: 109.1 Result Comment: IG% - Immature Granulocytes (promyelocytes, myelocytes andmetamyelocytes) > 1% indicates that a LEFT SHIFT is Present. Performed By: #### L 100.0100 ####[facility] [address] [place], [address] Lymphocytes/100 WBC (Bld) 23.9 % Normal 19-41 [facility] Comment on above: Order Comment: 109.1 Performed By: #### L 100.0100 ####[facility] [address] [place], [address] MCH (RBC) [Entitic mass] 29.8 pg Normal 27.0-32.0 [facility] Comment on above: Order Comment: 109.1 Performed By: #### L 100.0100 ####[facility] [address] [place], [address] MCHC (RBC) [Mass/Vol] 32.6 g/dL Normal 32-36 [facility] Comment on above: Order Comment: 109.1 Performed By: #### L 100.0100 ####[facility] [address] [place], [address] MCV (RBC) [Entitic vol] 91.4 fL Normal 80-94 [facility] Comment on above: Order Comment: 109.1 Performed By: #### L 100.0100 ####[facility] [address] [place], [address] Monocytes/100 WBC (Bld) 9.4 % Normal 0-10 [facility] Comment on above: Order Comment: 109.1 Performed By: #### L 100.0100 ####[facility] [address] [place], [address] Neutrophils/100 WBC (Bld) 64.9 % Normal 47-70 [facility] Comment on above: Order Comment: 109.1 Performed By: #### L 100.0100 ####[facility] [address] [place], [address] Nucleated RBC (Bld) [#/Vol] 0 10*3/uL Normal 0-5 [facility] Comment on above: Order Comment: 109.1 Performed By: #### L 100.0100 ####[facility] [address] [place], [address] Platelet mean volume (Bld) [Entitic vol] 11.5 fL Normal 6.2-12.0 [facility] Comment on above: Order Comment: 109.1 Performed By: #### L 100.0100 ####[facility] [address] [place], [address] Platelets (Bld) [#/Vol] 202 10*3/uL Normal 150-450 [facility] Comment on above: Order Comment: 109.1 Performed By: #### L 100.0100 ####[facility] [address] [place], [address] RBC (Bld) [#/Vol] 4.53 10*6/uL Low 4.6-6.2 [facility] Comment on above: Order Comment: 109.1 Performed By: #### L 100.0100 ####[facility] [address] [place], [address] RDW SD 42.7 fl Normal 35.1-43.9 [facility] Comment on above: Order Comment: 109.1 Performed By: #### L 100.0100 ####[facility] [address] [place], [address] WBC (Bld) [#/Vol] 8.0 10*3/uL Normal 4.4-11.0 [facility] Comment on above: Order Comment: 109.1 Performed By: #### L 100.0100 ####[facility] [address] [place], [place], [phone] Eosinophil percentageOrdered By: Renard Burgos on 07-22-2024 Eosinophils/100 WBC (Bld) 0.9 % 0-5 [facility] Erythrocyte distribution wid th ratioOrdered By: Renard Burgos on 07-22-2024 Erythrocyte distribution width (RBC) [Ratio] 12.9 % 11.6-14.6 [facility] Erythrocyte distribution wid th standard deviationOrdered By: Renard Burgos on 07-22-2024 Erythrocyte distribution width (RBC) [Entitic vol] 42.7 fL 35.1-43.9 [facility] Erythrocyte distribution width (RBC) [Ratio] 42.7 fl 35.1-43.9 [facility] Hematocrit Auto (Bld) [Volum e fraction]Ordered By: Renard Burgos on 07-22-2024 Hematocrit (Bld) [Volume fraction] 41.4 % 40-54 [facility] Hemoglobin measurementOrdere d By: Renard Burgos on 07-22-2024 Hemoglobin (Bld) [Mass/Vol] 13.5 g/dL 13.0-16.5 [facility] Immature granulocytes/100 WB C Auto (Bld)Ordered By: Renard Burgos on 07-22-2024 Immature granulocytes/100 WBC (Bld) 0.300 % 0.0-0.9 [facility] Comment on above: IG% - Immature Granu locytes (promyelocytes, myelocytes and metamyelocytes) > 1% indicates that a LEFT SHIFT is Present. Lymphocytes Auto (Unsp spec) [#/Vol]Ordered By: Renard Burgso on 07-22-2024 Lymphocytes (Bld) [#/Vol] 1.90 10*3/uL 0.83-4.51 [facility] Lymphocytes/100 WBC Auto (Un sp spec)Ordered By: Renard Burgos on 07-22-2024 Lymphocytes/100 WBC (Bld) 23.9 % 19-41 [facility] MCV (mean corpuscular volume ) determinationOrdered By: Renard Burgos on 07-22-2024 MCV (RBC) [Entitic vol] 91.4 fL 80-94 [facility] Mean corpuscular hemoglobin (MCH) determinationOrdered By: Renard Burgos on 07-22-2024 MCH (RBC) [Entitic mass] 29.8 pg 27.0-32.0 [facility] Mean corpuscular hemoglobin concentration (MCHC) determinationOrdered By: Renard Burgos on 07-22-2024 MCHC (RBC) [Mass/Vol] 32.6 g/dL 32-36 [facility] Mean platelet volume determi nationOrdered By: Renard Burgos on 07-22-2024 Platelet mean volume (Bld) [Entitic vol] 11.5 fL 6.2-12.0 [facility] Monocyte percentageOrdered B y: Renard Burgos on 07-22-2024 Monocytes/100 WBC (Bld) 9.4 % 0-10 [facility] Neutrophil percentageOrdered By: Renard Burgos on 07-22-2024 Neutrophils/100 WBC (Bld) 64.9 % 47-70 [facility] Nucleated red blood cell per centageOrdered By: Renard Burgos on 07-22-2024 Nucleated RBC/100 WBC (Bld) [Ratio] 0 % 0-5 [facility] Platelet countOrdered By: Garrick Bhatt on 03-24-2025 Platelets (Bld) [#/Vol] 202 10*3/uL 150-450 [facility] RBC Auto (Bld) [#/Vol]Ordere d By: Renard Burgos on 07-22-2024 RBC (Bld) [#/Vol] 4.53 10*6/uL Low 4.6-6.2 [facility] White blood cell (WBC) count Ordered By: Renard Burgos on 07-22-2024 WBC (Bld) [#/Vol] 8.0 10*3/uL 4.4-11.0 [facility] L506.1001on 07-16-2024 Vitamin D 25-OH 21.8 ng/mL Low 30-100 [facility] Comment on above: Order Comment: 109 Result Comment: Edilma min D StatusDeficiency: <20 ng/mL (50nmol/L)Insufficiency: 20-30 ng/mL (50-75 nmol/L)Sufficiency: 30-100 ng/mL (75-250 nmol/L)Toxicity: >100 ng/mL (>250 nmol/L) Performed By: #### L 506.1001 ####[facility] [address] [place], [id number] Vitamin D, 25-hydroxyOrdered By: Renard Burgos on 07-16-2024 Vitamin D 25-Hydroxy 21.8 ng/mL Low 30-100 [facility] Comment on above: Vitamin D StatusDefi ciency: <20 ng/mL (50nmol/L)Insufficiency: 20-30 ng/mL (50-75 nmol/L)Sufficiency: 30-100 ng/mL (75-250 nmol/L)Toxicity: >100 ng/mL (>250 nmol/L) Absolute lymphocyte countOrd ered By: Renard Burgos on 07-15-2024 Lymphocytes Auto (Unsp spec) [#/Vol] 2.10 10*3/uL 0.83-4.51 [facility] Absolute neutrophil countOrd ered By: Renard Burgos on 07-15-2024 Neutrophils (Bld) [#/Vol] 6.9 10*3/uL 2.0-7.7 [facility] Automated lymphocyte count a s percentage of total leukocytesOrdered By: Renard Hensleydiego on 07-15-2024 Lymphocytes/100 WBC Auto (Unsp spec) 21.0 % 19-41 [facility] Basophil percentageOrdered B y: Renard Shelliediego on 07-15-2024 Basophils/100 WBC (Bld) 0.5 % 0-1 [facility] CBC W/Diff, Automatedon 06-29 Absolute Lymph 2.10 X10 3/uL Normal 0.83-4.51 [facility] Comment on above: Order Comment: 109.1 Performed By: #### L 100.0100 ####[facility] [address] [place], [address] Absolute Neut 6.9 X10 3/uL Normal 2.0-7.7 [facility] Comment on above: Order Comment: 109.1 Performed By: #### L 100.0100 ####[facility] [address] [place], [address] Basophils/100 WBC (Bld) 0.5 % Normal 0-1 [facility] Comment on above: Order Comment: 109.1 Performed By: #### L 100.0100 ####[facility] [address] [place], [address] Eosinophils/100 WBC (Bld) 1.2 % Normal 0-5 [facility] Comment on above: Order Comment: 109.1 Performed By: #### L 100.0100 ####[facility] [address] [place], [address] Erythrocyte distribution width (RBC) [Ratio] 12.9 % Normal 11.6-14.6 [facility] Comment on above: Order Comment: 109.1 Performed By: #### L 100.0100 ####[facility] [address] [place], [address] Hematocrit (Bld) [Volume fraction] 41.0 % Normal 40-54 [facility] Comment on above: Order Comment: 109.1 Performed By: #### L 100.0100 ####[facility] [address] [place], [address] Hemoglobin (Bld) [Mass/Vol] 13.4 g/dL Normal 13.0-16.5 [facility] Comment on above: Order Comment: 109.1 Performed By: #### L 100.0100 ####[facility] [address] [place], [address] IG% 0.300 Normal 0.0-0.9 [facility] Comment on above: Order Comment: 109.1 Result Comment: IG% - Immature Granulocytes (promyelocytes, myelocytes andmetamyelocytes) > 1% indicates that a LEFT SHIFT is Present. Performed By: #### L 100.0100 ####[facility] [address] [place], [address] Lymphocytes/100 WBC (Bld) 21.0 % Normal 19-41 [facility] Comment on above: Order Comment: 109.1 Performed By: #### L 100.0100 ####[facility] [address] [place], [address] MCH (RBC) [Entitic mass] 29.7 pg Normal 27.0-32.0 [facility] Comment on above: Order Comment: 109.1 Performed By: #### L 100.0100 ####[facility] [address] [place], [address] MCHC (RBC) [Mass/Vol] 32.7 g/dL Normal 32-36 [facility] Comment on above: Order Comment: 109.1 Performed By: #### L 100.0100 ####[facility] [address] [place], [address] MCV (RBC) [Entitic vol] 90.9 fL Normal 80-94 [facility] Comment on above: Order Comment: 109.1 Performed By: #### L 100.0100 ####[facility] [address] [place], [address] Monocytes/100 WBC (Bld) 7.6 % Normal 0-10 [facility] Comment on above: Order Comment: 109.1 Performed By: #### L 100.0100 ####[facility] [address] [place], [address] Neutrophils/100 WBC (Bld) 69.4 % Normal 47-70 [facility] Comment on above: Order Comment: 109.1 Performed By: #### L 100.0100 ####[facility] [address] [place], [address] Nucleated RBC (Bld) [#/Vol] 0 10*3/uL Normal 0-5 [facility] Comment on above: Order Comment: 109.1 Performed By: #### L 100.0100 ####[facility] [address] [place], [address] Platelet mean volume (Bld) [Entitic vol] 11.4 fL Normal 6.2-12.0 [facility] Comment on above: Order Comment: 109.1 Performed By: #### L 100.0100 ####[facility] [address] [place], [address] Platelets (Bld) [#/Vol] 206 10*3/uL Normal 150-450 [facility] Comment on above: Order Comment: 109.1 Performed By: #### L 100.0100 ####[facility] [address] [place], [address] RBC (Bld) [#/Vol] 4.51 10*6/uL Low 4.6-6.2 [facility] Comment on above: Order Comment: 109.1 Performed By: #### L 100.0100 ####[facility] [address] [place], [address] RDW SD 42.3 fl Normal 35.1-43.9 [facility] Comment on above: Order Comment: 109.1 Performed By: #### L 100.0100 ####[facility] [address] [place], [address] WBC (Bld) [#/Vol] 10.0 10*3/uL Normal 4.4-11.0 [facility] Comment on above: Order Comment: 109.1 Performed By: #### L 100.0100 ####[facility] [address] [place], [address] Eosinophil percentageOrdered By: Renard Burgos on 07-15-2024 Eosinophils/100 WBC (Bld) 1.2 % 0-5 [facility] Erythrocyte distribution wid th ratioOrdered By: Renard Burgos on 07-15-2024 Erythrocyte distribution width (RBC) [Ratio] 12.9 % 11.6-14.6 [facility] Erythrocyte distribution wid th standard deviationOrdered By: Renard Burgos on 07-15-2024 Erythrocyte distribution width (RBC) [Entitic vol] 42.3 fL 35.1-43.9 [facility] Erythrocyte distribution width (RBC) [Ratio] 42.3 fl 35.1-43.9 [facility] Hematocrit Auto (Bld) [Volum e fraction]Ordered By: Renard Burgos on 07-15-2024 Hematocrit (Bld) [Volume fraction] 41.0 % 40-54 [facility] Hemoglobin measurementOrdere d By: Renard Burgos on 07-15-2024 Hemoglobin (Bld) [Mass/Vol] 13.4 g/dL 13.0-16.5 [facility] Immature granulocytes/100 WB C Auto (Bld)Ordered By: Renard Burgos on 07-15-2024 Immature granulocytes/100 WBC (Bld) 0.300 % 0.0-0.9 [facility] Comment on above: IG% - Immature Granu locytes (promyelocytes, myelocytes and metamyelocytes) > 1% indicates that a LEFT SHIFT is Present. Lymphocytes Auto (Unsp spec) [#/Vol]Ordered By: Renard Bugros on 07-15-2024 Lymphocytes (Bld) [#/Vol] 2.10 10*3/uL 0.83-4.51 [facility] Lymphocytes/100 WBC Auto (Un sp spec)Ordered By: Renard Burgos on 07-15-2024 Lymphocytes/100 WBC (Bld) 21.0 % 19-41 [facility] MCV (mean corpuscular volume ) determinationOrdered By: Renard Burgos on 07-15-2024 MCV (RBC) [Entitic vol] 90.9 fL 80-94 [facility] Mean corpuscular hemoglobin (MCH) determinationOrdered By: Renard Burgos on 07-15-2024 MCH (RBC) [Entitic mass] 29.7 pg 27.0-32.0 [facility] Mean corpuscular hemoglobin concentration (MCHC) determinationOrdered By: Renard Burgos on 07-15-2024 MCHC (RBC) [Mass/Vol] 32.7 g/dL 32-36 [facility] Mean platelet volume determi nationOrdered By: Renard Burgos on 07-15-2024 Platelet mean volume (Bld) [Entitic vol] 11.4 fL 6.2-12.0 [facility] Monocyte percentageOrdered B y: Renard Burgos on 07-15-2024 Monocytes/100 WBC (Bld) 7.6 % 0-10 [facility] Neutrophil percentageOrdered By: Renard Burgos on 07-15-2024 Neutrophils/100 WBC (Bld) 69.4 % 47-70 [facility] Nucleated red blood cell per centageOrdered By: Renard Burgos on 07-15-2024 Nucleated RBC/100 WBC (Bld) [Ratio] 0 % 0-5 [facility] Platelet countOrdered By: Garrick Bhatt on 07-15-2024 Platelets (Bld) [#/Vol] 206 10*3/uL 150-450 [facility] RBC Auto (Bld) [#/Vol]Ordere d By: Renard Burgos on 07-15-2024 RBC (Bld) [#/Vol] 4.51 10*6/uL Low 4.6-6.2 [facility] White blood cell (WBC) count Ordered By: Renard Burgos on 07-15-2024 WBC (Bld) [#/Vol] 10.0 10*3/uL 4.4-11.0 [facility] Absolute lymphocyte countOrd ered By: Renard Burgos on 07-08-2024 Lymphocytes Auto (Unsp spec) [#/Vol] 2.02 10*3/uL 0.83-4.51 [facility] Absolute neutrophil countOrd ered By: Renard Burgos on 07-08-2024 Neutrophils (Bld) [#/Vol] 7.2 10*3/uL 2.0-7.7 [facility] Automated lymphocyte count a s percentage of total leukocytesOrdered By: Renard Burgos on 07-08-2024 Lymphocytes/100 WBC Auto (Unsp spec) 19.7 % 19-41 [facility] Basophil percentageOrdered B y: Renard Burgos on 07-08-2024 Basophils/100 WBC (Bld) 0.6 % 0-1 [facility] CBC W/Diff, Automatedon 06-29 Absolute Lymph 2.02 X10 3/uL Normal 0.83-4.51 [facility] Comment on above: Order Comment: 109-1 Performed By: #### L 100.0100 ####[facility] [address] [place], [address] Absolute Neut 7.2 X10 3/uL Normal 2.0-7.7 [facility] Comment on above: Order Comment: 109-1 Performed By: #### L 100.0100 ####[facility] [address] [place], [address] Basophils/100 WBC (Bld) 0.6 % Normal 0-1 [facility] Comment on above: Order Comment: 109-1 Performed By: #### L 100.0100 ####[facility] [address] [place], [address] Eosinophils/100 WBC (Bld) 1.5 % Normal 0-5 [facility] Comment on above: Order Comment: 109-1 Performed By: #### L 100.0100 ####[facility] [address] [place], [address] Erythrocyte distribution width (RBC) [Ratio] 12.9 % Normal 11.6-14.6 [facility] Comment on above: Order Comment: 109-1 Performed By: #### L 100.0100 ####[facility] [address] [place], [address] Hematocrit (Bld) [Volume fraction] 40.6 % Normal 40-54 [facility] Comment on above: Order Comment: 109-1 Performed By: #### L 100.0100 ####[facility] [address] [place], [address] Hemoglobin (Bld) [Mass/Vol] 13.6 g/dL Normal 13.0-16.5 [facility] Comment on above: Order Comment: 109-1 Performed By: #### L 100.0100 ####[facility] [address] [place], [address] IG% 0.500 Normal 0.0-0.9 [facility] Comment on above: Order Comment: 109-1 Result Comment: IG% - Immature Granulocytes (promyelocytes, myelocytes andmetamyelocytes) > 1% indicates that a LEFT SHIFT is Present. Performed By: #### L 100.0100 ####[facility] [address] [place], [address] Lymphocytes/100 WBC (Bld) 19.7 % Normal 19-41 [facility] Comment on above: Order Comment: 109-1 Performed By: #### L 100.0100 ####[facility] [address] [place], [address] MCH (RBC) [Entitic mass] 30.5 pg Normal 27.0-32.0 [facility] Comment on above: Order Comment: 109-1 Performed By: #### L 100.0100 ####[facility] [address] [place], [address] MCHC (RBC) [Mass/Vol] 33.5 g/dL Normal 32-36 [facility] Comment on above: Order Comment: 109-1 Performed By: #### L 100.0100 ####[facility] [address] [place], [address] MCV (RBC) [Entitic vol] 91.0 fL Normal 80-94 [facility] Comment on above: Order Comment: 109-1 Performed By: #### L 100.0100 ####[facility] [address] [place], [address] Monocytes/100 WBC (Bld) 7.4 % Normal 0-10 [facility] Comment on above: Order Comment: 109-1 Performed By: #### L 100.0100 ####[facility] [address] [place], [address] Neutrophils/100 WBC (Bld) 70.3 % High 47-70 [facility] Comment on above: Order Comment: 109-1 Performed By: #### L 100.0100 ####[facility] [address] [place], [address] Nucleated RBC (Bld) [#/Vol] 0 10*3/uL Normal 0-5 [facility] Comment on above: Order Comment: 109-1 Performed By: #### L 100.0100 ####[facility] [address] [place], [address] Platelet mean volume (Bld) [Entitic vol] 11.1 fL Normal 6.2-12.0 [facility] Comment on above: Order Comment: 109-1 Performed By: #### L 100.0100 ####[facility] [address] [place], [address] Platelets (Bld) [#/Vol] 207 10*3/uL Normal 150-450 [facility] Comment on above: Order Comment: 109-1 Performed By: #### L 100.0100 ####[facility] [address] [place], [address] RBC (Bld) [#/Vol] 4.46 10*6/uL Low 4.6-6.2 [facility] Comment on above: Order Comment: 109-1 Performed By: #### L 100.0100 ####[facility] [address] [place], [address] RDW SD 42.5 fl Normal 35.1-43.9 [facility] Comment on above: Order Comment: 109-1 Performed By: #### L 100.0100 ####[facility] [address] [place], [address] WBC (Bld) [#/Vol] 10.3 10*3/uL Normal 4.4-11.0 [facility] Comment on above: Order Comment: 109-1 Performed By: #### L 100.0100 ####[facility] [address] [place], [address] Eosinophil percentageOrdered By: Renard Burgos on 07-08-2024 Eosinophils/100 WBC (Bld) 1.5 % 0-5 [facility] Erythrocyte distribution wid th ratioOrdered By: Renard Burgos on 07-08-2024 Erythrocyte distribution width (RBC) [Ratio] 12.9 % 11.6-14.6 [facility] Erythrocyte distribution wid th standard deviationOrdered By: Renard Burgos on 07-08-2024 Erythrocyte distribution width (RBC) [Entitic vol] 42.5 fL 35.1-43.9 [facility] Erythrocyte distribution width (RBC) [Ratio] 42.5 fl 35.1-43.9 [facility] Hematocrit Auto (Bld) [Volum e fraction]Ordered By: Renard Burgos on 07-08-2024 Hematocrit (Bld) [Volume fraction] 40.6 % 40-54 [facility] Hemoglobin measurementOrdere d By: Renard Burgos on 07-08-2024 Hemoglobin (Bld) [Mass/Vol] 13.6 g/dL 13.0-16.5 [facility] Immature granulocytes/100 WB C Auto (Bld)Ordered By: Renard Burgos on 07-08-2024 Immature granulocytes/100 WBC (Bld) 0.500 % 0.0-0.9 [facility] Comment on above: IG% - Immature Granu locytes (promyelocytes, myelocytes and metamyelocytes) > 1% indicates that a LEFT SHIFT is Present. Lymphocytes Auto (Unsp spec) [#/Vol]Ordered By: Renard Burgos on 07-08-2024 Lymphocytes (Bld) [#/Vol] 2.02 10*3/uL 0.83-4.51 [facility] Lymphocytes/100 WBC Auto (Un sp spec)Ordered By: Renard Burgos on 07-08-2024 Lymphocytes/100 WBC (Bld) 19.7 % 19-41 [facility] MCV (mean corpuscular volume ) determinationOrdered By: Renard Burgos on 07-08-2024 MCV (RBC) [Entitic vol] 91.0 fL 80-94 [facility] Mean corpuscular hemoglobin (MCH) determinationOrdered By: Renard Burgos on 07-08-2024 MCH (RBC) [Entitic mass] 30.5 pg 27.0-32.0 [facility] Mean corpuscular hemoglobin concentration (MCHC) determinationOrdered By: Renard Burgos on 07-08-2024 MCHC (RBC) [Mass/Vol] 33.5 g/dL 32-36 [facility] Mean platelet volume determi nationOrdered By: Renard Burgos on 07-08-2024 Platelet mean volume (Bld) [Entitic vol] 11.1 fL 6.2-12.0 [facility] Monocyte percentageOrdered B y: Renard Burgos on 07-08-2024 Monocytes/100 WBC (Bld) 7.4 % 0-10 [facility] Neutrophil percentageOrdered By: Renard Burgos on 07-08-2024 Neutrophils/100 WBC (Bld) 70.3 % High 47-70 [facility] Nucleated red blood cell per centageOrdered By: Renard Burgos on 07-08-2024 Nucleated RBC/100 WBC (Bld) [Ratio] 0 % 0-5 [facility] Platelet countOrdered By: Garrick Bhatt on 07-08-2024 Platelets (Bld) [#/Vol] 207 10*3/uL 150-450 [facility] RBC Auto (Bld) [#/Vol]Ordere d By: Renard Burgos on 07-08-2024 RBC (Bld) [#/Vol] 4.46 10*6/uL Low 4.6-6.2 [facility] White blood cell (WBC) count Ordered By: Renard Burgos on 07-08-2024 WBC (Bld) [#/Vol] 10.3 10*3/uL 4.4-11.0 [facility] Absolute lymphocyte countOrd ered By: Renard Burgos on 07-01-2024 Lymphocytes Auto (Unsp spec) [#/Vol] 2.03 10*3/uL 0.83-4.51 [facility] Absolute neutrophil countOrd ered By: Renard Burgos on 07-01-2024 Neutrophils (Bld) [#/Vol] 7.0 10*3/uL 2.0-7.7 [facility] Automated lymphocyte count a s percentage of total leukocytesOrdered By: Renard Burgos on 07-01-2024 Lymphocytes/100 WBC Auto (Unsp spec) 20.3 % 19-41 [facility] Basophil percentageOrdered B y: Renard Burgos on 07-01-2024 Basophils/100 WBC (Bld) 0.6 % 0-1 [facility] CBC W/Diff, Automatedon Absolute Lymph 2.03 X10 3/uL Normal 0.83-4.51 [facility] Comment on above: Order Comment: 109 Performed By: #### L 100.0100 ####[facility] [address] [facility] [place], [place], [id number] Absolute Neut 7.0 X10 3/uL Normal 2.0-7.7 [facility] Comment on above: Order Comment: 109 Performed By: #### L 100.0100 ####[facility] [address] [place], [address] Basophils/100 WBC (Bld) 0.6 % Normal 0-1 [facility] Comment on above: Order Comment: 109 Performed By: #### L 100.0100 ####[facility] [address] [place], [address] Eosinophils/100 WBC (Bld) 1.3 % Normal 0-5 [facility] Comment on above: Order Comment: 109 Performed By: #### L 100.0100 ####[facility] [address] [place], [address] Erythrocyte distribution width (RBC) [Ratio] 13.1 % Normal 11.6-14.6 [facility] Comment on above: Order Comment: 109 Performed By: #### L 100.0100 ####[facility] [address] [place], [address] Hematocrit (Bld) [Volume fraction] 41.7 % Normal 40-54 [facility] Comment on above: Order Comment: 109 Performed By: #### L 100.0100 ####[facility] [address] [place], [address] Hemoglobin (Bld) [Mass/Vol] 13.6 g/dL Normal 13.0-16.5 [facility] Comment on above: Order Comment: 109 Performed By: #### L 100.0100 ####[facility] [address] [place], [address] IG% 0.500 Normal 0.0-0.9 [facility] Comment on above: Order Comment: 109 Result Comment: IG% - Immature Granulocytes (promyelocytes, myelocytes andmetamyelocytes) > 1% indicates that a LEFT SHIFT is Present. Performed By: #### L 100.0100 ####[facility] [address] [place], [address] Lymphocytes/100 WBC (Bld) 20.3 % Normal 19-41 [facility] Comment on above: Order Comment: 109 Performed By: #### L 100.0100 ####[facility] [address] [place], [address] MCH (RBC) [Entitic mass] 29.6 pg Normal 27.0-32.0 [facility] Comment on above: Order Comment: 109 Performed By: #### L 100.0100 ####[facility] [address] [place], [address] MCHC (RBC) [Mass/Vol] 32.6 g/dL Normal 32-36 [facility] Comment on above: Order Comment: 109 Performed By: #### L 100.0100 ####[facility] [address] [place], [address] MCV (RBC) [Entitic vol] 90.8 fL Normal 80-94 [facility] Comment on above: Order Comment: 109 Performed By: #### L 100.0100 ####[facility] [address] [place], [address] Monocytes/100 WBC (Bld) 6.8 % Normal 0-10 [facility] Comment on above: Order Comment: 109 Performed By: #### L 100.0100 ####[facility] [address] [place], [address] Neutrophils/100 WBC (Bld) 70.5 % High 47-70 [facility] Comment on above: Order Comment: 109 Performed By: #### L 100.0100 ####[facility] [address] [place], [address] Nucleated RBC (Bld) [#/Vol] 0 10*3/uL Normal 0-5 [facility] Comment on above: Order Comment: 109 Performed By: #### L 100.0100 ####[facility] [address] [place], [address] Platelet mean volume (Bld) [Entitic vol] 11.0 fL Normal 6.2-12.0 [facility] Comment on above: Order Comment: 109 Performed By: #### L 100.0100 ####[facility] [address] [place], [address] Platelets (Bld) [#/Vol] 208 10*3/uL Normal 150-450 [facility] Comment on above: Order Comment: 109 Performed By: #### L 100.0100 ####[facility] [address] [place], [address] RBC (Bld) [#/Vol] 4.59 10*6/uL Low 4.6-6.2 [facility] Comment on above: Order Comment: 109 Performed By: #### L 100.0100 ####[facility] [address] [place], [address] RDW SD 42.8 fl Normal 35.1-43.9 [facility] Comment on above: Order Comment: 109 Performed By: #### L 100.0100 ####[facility] [address] [place], [address] WBC (Bld) [#/Vol] 10.0 10*3/uL Normal 4.4-11.0 [facility] Comment on above: Order Comment: 109 Performed By: #### L 100.0100 ####[facility] [address] [place], [address] Eosinophil percentageOrdered By: Renard Burgos on 07-01-2024 Eosinophils/100 WBC (Bld) 1.3 % 0-5 [facility] Erythrocyte distribution wid th ratioOrdered By: Renard Burgos on 07-01-2024 Erythrocyte distribution width (RBC) [Ratio] 13.1 % 11.6-14.6 [facility] Erythrocyte distribution wid th standard deviationOrdered By: Renard Burgos on 07-01-2024 Erythrocyte distribution width (RBC) [Entitic vol] 42.8 fL 35.1-43.9 [facility] Erythrocyte distribution width (RBC) [Ratio] 42.8 fl 35.1-43.9 [facility] Hematocrit Auto (Bld) [Volum e fraction]Ordered By: Renard Burgos on 07-01-2024 Hematocrit (Bld) [Volume fraction] 41.7 % 40-54 [facility] Hemoglobin measurementOrdere d By: Renard Burgos on 07-01-2024 Hemoglobin (Bld) [Mass/Vol] 13.6 g/dL 13.0-16.5 [facility] Immature granulocytes/100 WB C Auto (Bld)Ordered By: Renard Burgos on 07-01-2024 Immature granulocytes/100 WBC (Bld) 0.500 % 0.0-0.9 [facility] Comment on above: IG% - Immature Granu locytes (promyelocytes, myelocytes and metamyelocytes) > 1% indicates that a LEFT SHIFT is Present. Lymphocytes Auto (Unsp spec) [#/Vol]Ordered By: Renard Burgos on 07-01-2024 Lymphocytes (Bld) [#/Vol] 2.03 10*3/uL 0.83-4.51 [facility] [facility] Lymphocytes/100 WBC Auto (Un sp spec)Ordered By: Renard Burgos on 07-01-2024 Lymphocytes/100 WBC (Bld) 20.3 % 19-41 [facility] MCV (mean corpuscular volume ) determinationOrdered By: Renard Burgos on 07-01-2024 MCV (RBC) [Entitic vol] 90.8 fL 80-94 [facility] Mean corpuscular hemoglobin (MCH) determinationOrdered By: Renard Burgos on 07-01-2024 MCH (RBC) [Entitic mass] 29.6 pg 27.0-32.0 [facility] Mean corpuscular hemoglobin concentration (MCHC) determinationOrdered By: Renard Burgos on 07-01-2024 MCHC (RBC) [Mass/Vol] 32.6 g/dL 32-36 [facility] Mean platelet volume determi nationOrdered By: Renard Burgos on 07-01-2024 Platelet mean volume (Bld) [Entitic vol] 11.0 fL 6.2-12.0 [facility] Monocyte percentageOrdered B y: Renard Burgos on 07-01-2024 Monocytes/100 WBC (Bld) 6.8 % 0-10 [facility] Neutrophil percentageOrdered By: Renard Burgos on 07-01-2024 Neutrophils/100 WBC (Bld) 70.5 % High 47-70 [facility] Nucleated red blood cell per centageOrdered By: Renard Burgos on 07-01-2024 Nucleated RBC/100 WBC (Bld) [Ratio] 0 % 0-5 [facility] Platelet countOrdered By: Garrick Bhatt on 07-01-2024 Platelets (Bld) [#/Vol] 208 10*3/uL 150-450 [facility] RBC Auto (Bld) [#/Vol]Ordere d By: Renard Burgos on 07-01-2024 RBC (Bld) [#/Vol] 4.59 10*6/uL Low 4.6-6.2 [facility] White blood cell (WBC) count Ordered By: Renard Burgos on 07-01-2024 WBC (Bld) [#/Vol] 10.0 10*3/uL 4.4-11.0 [facility] Urine Cultureon 06-30-2024 URC Normal [facility] Comment on above: Performed By: #### M 100.2200, L400.0001 ####[facility] [address], [address] Bilirubin Test strip Ql (U)O rdered By: Renard Burgos on 06-27-2024 Bilirubin Ql (U) Negative Negative [facility] Epithelial cells.squamous LM Ql (Urine sed)Ordered By: Renard Burgos on 06-27-2024 Epithelial cells.squamous LM.HPF (Urine sed) [#/Area] 0 /[HPF] 0-5 [facility] Glucose Ql (U)Ordered By: Garrick Bhatt on 06-27-2024 Urine Glucose (UA) Normal mg/dl Normal [facility] Ketones Test strip Ql (U)Ord ered By: Renard Burgos on 06-27-2024 Ketones Ql (U) Negative Negative [facility] Microscopic analysis of urin e for red blood cells (RBC)Ordered By: Renard Burgos on 06-27-2024 Microscopic analysis of urine for red blood cells (RBC) 0 SEEN /hpf 0-5 [facility] Urine RBC 0 SEEN /hpf 0-5 [facility] Mucus LM Ql (Urine sed)Order ed By: Renard Burgos on 06-27-2024 Mucus Ql (Urine sed) 0 SEEN /hpf [facility] Nitrite Test strip Ql (U)Ord ered By: Renard Burgos on 06-27-2024 Nitrite Ql (U) Negative Negative [facility] Protein Test strip Ql (U)Ord ered By: Renard Burgos on 06-27-2024 Protein Ql (U) 15 mg/dl High Negative [facility] Squamous epithelial cells de tection in urine sediment by light microscopyOrdered By: Renard Burgos on 06-27-2024 Epithelial cells.squamous LM Ql (Urine sed) 0 SEEN /hpf 0-5 [facility] Urinalysis, Completeon 06-27 RBC 0 SEEN Normal 0-5 [facility] Comment on above: Order Comment: ARCHANA TER SPECIMEN Performed By: #### M 100.2200, L400.0001 ####[facility] [address] [place], [place], [id number] Urine blood detectionOrdered By: Renard Burgos on 06-27-2024 Urine Occult Blood Negative Negative [facility] Urine clarityOrdered By: Lyubov Burgos on 06-27-2024 Clarity (U) Clear Clear [facility] Urine color determinationOrd ered By: Renard Burgos on 06-27-2024 Color (U) Yellow Yellow [facility] Urine cultureOrdered By: Lyubov Burgos on 06-27-2024 Bacteria identified Cx Nom (U) Staphylococcus warneri Abnormal [facility] Bacteria identified Cx Nom (U) Aerococcus viridans. Abnormal [facility] Bacteria identified Cx Nom (U) Presumptive C albicans Abnormal [facility] Bacteria identified Cx Nom (U) Staphylococcus warneri Abnormal [facility] Bacteria identified Cx Nom (U) Aerococcus viridans. Abnormal [facility] Bacteria identified Cx Nom (U) Presumptive C albicans Abnormal [facility] Urine glucose detectionOrder ed By: Renard Burgos on 06-27-2024 Glucose Ql (U) Normal mg/dl Normal [facility] Urine leukocyte esterase det ection by dipstickOrdered By: Renard Burgos on 06-27-2024 Leukocyte esterase Test strip Ql (U) Negative Negative [facility] Urine pHOrdered By: Renard ocampo on 06-27-2024 pH (U) 7.0 [pH] 5.0 - 8.0 [facility] Urine sediment bacteria coun t by microscopy (number/high power field)Ordered By: Renard Burgos on 06-27-2024 Bacteria LM.HPF (Urine sed) [#/Area] 0 /[HPF] None Seen [facility] Urine specific gravity measu rementOrdered By: Renard Burgos on 06-27-2024 Specific gravity (U) [Rel density] 1.010 1.002-1.030 [facility] Urine urobilinogen measureme ntOrdered By: Renard Burgos on 06-27-2024 Urobilinogen Ql (U) 4 mg/dl High Normal [facility] Urobilinogen Ql (U)Ordered B y: Renard Burgos on 06-27-2024 Urobilinogen (U) [Mass/Vol] 4 mg/dL High Normal [facility] White blood cell countOrdere d By: Renard Burgos on 06-27-2024 Urine WBC 0 SEEN /hpf 0-5 [facility] White blood cell count 0 SEEN /hpf 0-5 [facility] CT CHEST WO IV CONTRASTon CT CHEST [...] 8:07 AM EST Cough x 2months Normal [facility] CT Chest WO contraston 06-26 Nonspecific groundglass densities are noted in the bilateral lower lobes. Correlate with concern for atypical infection Report Dictated on Electronically Signed By: Maria Eugenia Ruiz MD Electronically Signed Date/Time: 06/26/2024 8:07 AM [facility] Name[facility] 1955 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 [facility] Maria Eugenia Ruiz MD - 06/26/2024 [...] Electronically Signed Date/Time: 06/26/2024 8:07 AM EST [employer] CT Chest WO contrastOrdered By: Maria Eugenia Ruiz on 06-26-2024 [employer] Work Phone: Absolute lymphocyte countOrd ered By: Renard Burgos on 06-24-2024 Lymphocytes Auto (Unsp spec) [#/Vol] 1.65 10*3/uL 0.83-4.51 [facility] Absolute neutrophil countOrd ered By: Renard Burgos on 06-24-2024 Neutrophils (Bld) [#/Vol] 10.2 10*3/uL High 2.0-7.7 [facility] Automated lymphocyte count a s percentage of total leukocytesOrdered By: Renard Burgos on 06-24-2024 Lymphocytes/100 WBC Auto (Unsp spec) 12.8 % Low 19-41 [facility] Basic Metabolic Profile (BMP )on 06-24-2024 BUN/CRE 24.9 RATIO High 10-20 [facility] Comment on above: Order Comment: 109.1 Performed By: #### L 100.0100, L500.2500 ####[facility] [address] [place], [address] CA,Total 8.3 mg/dL Low 8.5-10.1 [facility] Comment on above: Order Comment: 109.1 Performed By: #### L 100.0100, L500.2500 ####[facility] [address] [place], [address] Chloride [Moles/Vol] 107 mmol/L Normal 98-107 [facility] Comment on above: Order Comment: 109.1 Performed By: #### L 100.0100, L500.2500 ####[facility] [address] [place], [address] CO2 [Moles/Vol] 24.0 mmol/L Normal 21.0-32.0 [facility] Comment on above: Order Comment: 109.1 Performed By: #### L 100.0100, L500.2500 ####[facility] [address] [place], [address] Creatinine [Mass/Vol] 0.60 mg/dL Low 0.70-1.30 [facility] Comment on above: Order Comment: 109.1 Result Comment: The validity of the calculated GFR GFRAA in patients over70 years has not been determined. Clinical correlation isessential. Performed By: #### L 100.0100, L500.2500 ####[facility] [address] [place], [address] EST GFR - AA 172 mL/min Normal >60 [facility] Comment on above: Order Comment: 109.1 Result Comment: Afri can Bhutanese GFR Calc Performed By: #### L 100.0100, L500.2500 ####[facility] [address] [place], [address] GAP 8 Normal 5-15 [facility] Comment on above: Order Comment: 109.1 Performed By: #### L 100.0100, L500.2500 ####[facility] [address] [place], [address] GFR/1.73 sq M.predicted among non-blacks MDRD (S/P/Bld) [Vol rate/Area] 142 mL/min/{1.73_m2} Normal >60 [facility] Comment on above: Order Comment: 109.1 Result Comment: Non- GFR Calc Performed By: #### L 100.0100, L500.2500 ####[facility] [address] [place], [address] Glucose [Mass/Vol] 101 mg/dL Normal 74-106 [facility] Comment on above: Order Comment: 109.1 Result Comment: Fast ing Glucose result from 100 to 125 mg/dLsuggests IMPAIRED HOMEOSTASIS per A.D.A. criteria. Performed By: #### L 100.0100, L500.2500 ####[facility] [address] [place], [address] Potassium [Moles/Vol] 4.1 mmol/L Normal 3.5-5.1 [facility] Comment on above: Order Comment: 109.1 Performed By: #### L 100.0100, L500.2500 ####[facility] [address] [place], [address] Sodium [Moles/Vol] 139 mmol/L Normal 136-145 [facility] Comment on above: Order Comment: 109.1 Performed By: #### L 100.0100, L500.2500 ####[facility] [address] [place], [address] Urea nitrogen [Mass/Vol] 15 mg/dL Normal 7-18 [facility] Comment on above: Order Comment: 109.1 Performed By: #### L 100.0100, L500.2500 ####[facility] [address] [place], [address] Basophil percentageOrdered B y: Renard Burgos on 06-24-2024 Basophils/100 WBC (Bld) 0.5 % 0-1 [facility] Blood urea nitrogen (BUN)/cr eatinine ratioOrdered By: Renard Burgos on 06-24-2024 Urea nitrogen/Creatinine [Mass ratio] 24.9 mg/mg High 10-20 [facility] CBC W/Diff, Automatedon - Absolute Lymph 1.65 X10 3/uL Normal 0.83-4.51 [facility] Comment on above: Order Comment: 109.1 Performed By: #### L 100.0100, L500.2500 ####[facility] [address] [place], [address] Absolute Neut 10.2 X10 3/uL High 2.0-7.7 [facility] Comment on above: Order Comment: 109.1 Performed By: #### L 100.0100, L500.2500 ####[facility] [address] [place], [address] Basophils/100 WBC (Bld) 0.5 % Normal 0-1 [facility] Comment on above: Order Comment: 109.1 Performed By: #### L 100.0100, L500.2500 ####[facility] [address] [place], [address] Eosinophils/100 WBC (Bld) 0.8 % Normal 0-5 [facility] Comment on above: Order Comment: 109.1 Performed By: #### L 100.0100, L500.2500 ####[facility] [address] [place], [address] Erythrocyte distribution width (RBC) [Ratio] 13.2 % Normal 11.6-14.6 [facility] Comment on above: Order Comment: 109.1 Performed By: #### L 100.0100, L500.2500 ####[facility] [address] [place], [address] Hematocrit (Bld) [Volume fraction] 41.8 % Normal 40-54 [facility] Comment on above: Order Comment: 109.1 Performed By: #### L 100.0100, L500.2500 ####[facility] [address] [place], [address] Hemoglobin (Bld) [Mass/Vol] 13.6 g/dL Normal 13.0-16.5 [facility] Comment on above: Order Comment: 109.1 Performed By: #### L 100.0100, L500.2500 ####[facility] [address] [place], [address] IG% 0.500 Normal 0.0-0.9 [facility] Comment on above: Order Comment: 109.1 Result Comment: IG% - Immature Granulocytes (promyelocytes, myelocytes andmetamyelocytes) > 1% indicates that a LEFT SHIFT is Present. Performed By: #### L 100.0100, L500.2500 ####[facility] [address] [place], [address] Lymphocytes/100 WBC (Bld) 12.8 % Low 19-41 [facility] Comment on above: Order Comment: 109.1 Performed By: #### L 100.0100, L500.2500 ####[facility] [address] [place], [address] MCH (RBC) [Entitic mass] 30.2 pg Normal 27.0-32.0 [facility] Comment on above: Order Comment: 109.1 Performed By: #### L 100.0100, L500.2500 ####[facility] [address] [place], [address] MCHC (RBC) [Mass/Vol] 32.5 g/dL Normal 32-36 [facility] Comment on above: Order Comment: 109.1 Performed By: #### L 100.0100, L500.2500 ####[facility] [address] [place], [address] MCV (RBC) [Entitic vol] 92.7 fL Normal 80-94 [facility] Comment on above: Order Comment: 109.1 Performed By: #### L 100.0100, L500.2500 ####[facility] [address] [place], [address] Monocytes/100 WBC (Bld) 6.4 % Normal 0-10 [facility] Comment on above: Order Comment: 109.1 Performed By: #### L 100.0100, L500.2500 ####[facility] [address] [place], [address] Neutrophils/100 WBC (Bld) 79.0 % High 47-70 [facility] Comment on above: Order Comment: 109.1 Performed By: #### L 100.0100, L500.2500 ####[facility] [address] [place], [address] Nucleated RBC (Bld) [#/Vol] 0 10*3/uL Normal 0-5 [facility] Comment on above: Order Comment: 109.1 Performed By: #### L 100.0100, L500.2500 ####[facility] [address] [place], [address] Platelet mean volume (Bld) [Entitic vol] 11.3 fL Normal 6.2-12.0 [facility] Comment on above: Order Comment: 109.1 Performed By: #### L 100.0100, L500.2500 ####[facility] [address] [place], [address] Platelets (Bld) [#/Vol] 171 10*3/uL Normal 150-450 [facility] Comment on above: Order Comment: 109.1 Performed By: #### L 100.0100, L500.2500 ####[facility] [address] [place], [address] RBC (Bld) [#/Vol] 4.51 10*6/uL Low 4.6-6.2 [facility] Comment on above: Order Comment: 109.1 Performed By: #### L 100.0100, L500.2500 ####[facility] [address] [place], [address] RDW SD 45.1 fl High 35.1-43.9 [facility] Comment on above: Order Comment: 109.1 Performed By: #### L 100.0100, L500.2500 ####[facility] [address] [place], [address] WBC (Bld) [#/Vol] 12.9 10*3/uL High 4.4-11.0 [facility] Comment on above: Order Comment: 109.1 Performed By: #### L 100.0100, L500.2500 ####[facility] [address] [place], [address] CT Chest WO contraston 06-24 Radiology Study observation (narrative) Estefania smith Carbon dioxide measurementOr dered By: Renard Burgos on 06-24-2024 CO2 [Moles/Vol] 24.0 mmol/L 21.0-32.0 [facility] Chloride measurementOrdered By: Renard Burgos on 06-24-2024 Chloride [Moles/Vol] 107 mmol/L 98-107 [facility] Eosinophil percentageOrdered By: Renard Burgos on 06-24-2024 Eosinophils/100 WBC (Bld) 0.8 % 0-5 [facility] Erythrocyte distribution wid th ratioOrdered By: Renard Burgos on 06-24-2024 Erythrocyte distribution width (RBC) [Ratio] 13.2 % 11.6-14.6 [facility] Erythrocyte distribution wid th standard deviationOrdered By: Renard Burgos on 06-24-2024 Erythrocyte distribution width (RBC) [Entitic vol] 45.1 fL High 35.1-43.9 [facility] Erythrocyte distribution width (RBC) [Ratio] 45.1 fl High 35.1-43.9 [facility] Estimated glomerular filtrat ion rate (GFR) AmericanOrdered By: Renard Burgos on 06-24-2024 Estimated GFR (MDRD) Amer 172 mL/min >60 [facility] Comment on above: GFR Calc Glomerular filtration rate ( GFR) estimationOrdered By: Renard Burgos on 06-24-2024 Estimated GFR (MDRD) Non-Af Amer 142 mL/min >60 [facility] Comment on above: Non- GFR Calc GFR/1.73 sq M.predicted among non-blacks MDRD (S/P/Bld) [Vol rate/Area] 142 mL/min/{1.73_m2} >60 [facility] Comment on above: Non- GFR Calc Glucose measurementOrdered B y: Renard Burgos on 06-24-2024 Glucose [Mass/Vol] 101 mg/dL 74-106 [facility] Comment on above: Fasting Glucose resu lt from 100 to 125 mg/dL suggests IMPAIRED HOMEOSTASIS per A.D.A. criteria. Hematocrit Auto (Bld) [Volum e fraction]Ordered By: Renard Burgos on 06-24-2024 Hematocrit (Bld) [Volume fraction] 41.8 % 40-54 [facility] Hemoglobin measurementOrdere d By: Renard Burgos on 06-24-2024 Hemoglobin (Bld) [Mass/Vol] 13.6 g/dL 13.0-16.5 [facility] Immature granulocytes/100 WB C Auto (Bld)Ordered By: Renard Burgos on 06-24-2024 Immature granulocytes/100 WBC (Bld) 0.500 % 0.0-0.9 [facility] Comment on above: IG% - Immature Granu locytes (promyelocytes, myelocytes and metamyelocytes) > 1% indicates that a LEFT SHIFT is Present. Lymphocytes Auto (Unsp spec) [#/Vol]Ordered By: Renard Burgos on 06-24-2024 Lymphocytes (Bld) [#/Vol] 1.65 10*3/uL 0.83-4.51 [facility] Lymphocytes/100 WBC Auto (Un sp spec)Ordered By: Renard Burgos on 06-24-2024 Lymphocytes/100 WBC (Bld) 12.8 % Low 19-41 [facility] MCV (mean corpuscular volume ) determinationOrdered By: Renard Burgos on 06-24-2024 MCV (RBC) [Entitic vol] 92.7 fL 80-94 [facility] Mean corpuscular hemoglobin (MCH) determinationOrdered By: Renard Burgos on 06-24-2024 MCH (RBC) [Entitic mass] 30.2 pg 27.0-32.0 [facility] Mean corpuscular hemoglobin concentration (MCHC) determinationOrdered By: Renard Burgos on 06-24-2024 MCHC (RBC) [Mass/Vol] 32.5 g/dL 32-36 [facility] Mean platelet volume determi nationOrdered By: Renard Burgos on 06-24-2024 Platelet mean volume (Bld) [Entitic vol] 11.3 fL 6.2-12.0 [facility] Monocyte percentageOrdered B y: Renard Burgos on 06-24-2024 Monocytes/100 WBC (Bld) 6.4 % 0-10 [facility] Neutrophil percentageOrdered By: Renard Burgos on 06-24-2024 Neutrophils/100 WBC (Bld) 79.0 % High 47-70 [facility] Nucleated red blood cell per centageOrdered By: Renard Burgos on 06-24-2024 Nucleated RBC/100 WBC (Bld) [Ratio] 0 % 0-5 [facility] Platelet countOrdered By: Garrick Bhatt on 06-24-2024 Platelets (Bld) [#/Vol] 171 10*3/uL 150-450 [facility] Potassium measurementOrdered By: Renard Burgos on 06-24-2024 Potassium [Moles/Vol] 4.1 mmol/L 3.5-5.1 [facility] RBC Auto (Bld) [#/Vol]Ordere d By: Renard Burgos on 06-24-2024 RBC (Bld) [#/Vol] 4.51 10*6/uL Low 4.6-6.2 [facility] Serum anion gap measurementO rdered By: Renard Burgos on 06-24-2024 Anion gap [Moles/Vol] 8 mmol/L 5-15 [facility] Serum or plasma calcium gordy urement (mass/volume)Ordered By: Renard Burgos on 06-24-2024 Calcium [Mass/Vol] 8.3 mg/dL Low 8.5-10.1 [facility] Serum or plasma creatinine m easurement (mass/volume)Ordered By: Renard Burgos on 06-24-2024 Creatinine [Mass/Vol] 0.60 mg/dL Low 0.70-1.30 [facility] Comment on above: The validity of the calculated GFR & GFRAA in patients over 70 years has not been determined. Clinical correlation is essential. Serum or plasma urea nitroge n measurement (mass/volume)Ordered By: Renard Burgos on 06-24-2024 Urea nitrogen [Mass/Vol] 15 mg/dL 7-18 [facility] Sodium levelOrdered By: Lamine Burgos on 06-24-2024 Sodium [Moles/Vol] 139 mmol/L 136-145 [facility] White blood cell (WBC) count Ordered By: Renard Burgos on 06-24-2024 WBC (Bld) [#/Vol] 12.9 10*3/uL High 4.4-11.0 [facility] Absolute lymphocyte countOrd ered By: Renard Burgos on 06-17-2024 Lymphocytes Auto (Unsp spec) [#/Vol] 2.00 10*3/uL 0.83-4.51 [facility] Absolute neutrophil countOrd ered By: Renard Burgos on 06-17-2024 Neutrophils (Bld) [#/Vol] 5.1 10*3/uL 2.0-7.7 [facility] Automated lymphocyte count a s percentage of total leukocytesOrdered By: Renard Burgos on 06-17-2024 Lymphocytes/100 WBC Auto (Unsp spec) 24.5 % 19-41 [facility] Basophil percentageOrdered B y: Renard Burgos on 06-17-2024 Basophils/100 WBC (Bld) 1.1 % High 0-1 [facility] CBC W/Diff, Automatedon 06-01 Absolute Lymph 2.00 X10 3/uL Normal 0.83-4.51 [facility] Comment on above: Order Comment: 109-1 Performed By: #### L 100.0100 ####[facility] [address] [place], [address] Absolute Neut 5.1 X10 3/uL Normal 2.0-7.7 [facility] Comment on above: Order Comment: 109-1 Performed By: #### L 100.0100 ####[facility] [address] [place], [address] Basophils/100 WBC (Bld) 1.1 % High 0-1 [facility] Comment on above: Order Comment: 109-1 Performed By: #### L 100.0100 ####[facility] [address] [place], [address] Eosinophils/100 WBC (Bld) 3.4 % Normal 0-5 [facility] Comment on above: Order Comment: 109-1 Performed By: #### L 100.0100 ####[facility] [address] [place], [address] Erythrocyte distribution width (RBC) [Ratio] 13.3 % Normal 11.6-14.6 [facility] Comment on above: Order Comment: 109-1 Performed By: #### L 100.0100 ####[facility] [address] [place], [address] Hematocrit (Bld) [Volume fraction] 39.3 % Low 40-54 [facility] Comment on above: Order Comment: 109-1 Performed By: #### L 100.0100 ####[facility] [address] [place], [address] Hemoglobin (Bld) [Mass/Vol] 12.8 g/dL Low 13.0-16.5 [facility] Comment on above: Order Comment: 109-1 Performed By: #### L 100.0100 ####[facility] [address] [place], [address] IG% 0.200 Normal 0.0-0.9 [facility] Comment on above: Order Comment: 109-1 Result Comment: IG% - Immature Granulocytes (promyelocytes, myelocytes andmetamyelocytes) > 1% indicates that a LEFT SHIFT is Present. Performed By: #### L 100.0100 ####[facility] [address] [place], [address] Lymphocytes/100 WBC (Bld) 24.5 % Normal 19-41 [facility] Comment on above: Order Comment: 109-1 Performed By: #### L 100.0100 ####[facility] [address] [place], [address] MCH (RBC) [Entitic mass] 29.6 pg Normal 27.0-32.0 [facility] Comment on above: Order Comment: 109-1 Performed By: #### L 100.0100 ####[facility] [address] [place], [address] MCHC (RBC) [Mass/Vol] 32.6 g/dL Normal 32-36 [facility] Comment on above: Order Comment: 109-1 Performed By: #### L 100.0100 ####[facility] [address] [place], [address] MCV (RBC) [Entitic vol] 90.8 fL Normal 80-94 [facility] Comment on above: Order Comment: 109-1 Performed By: #### L 100.0100 ####[facility] [address] [place], [address] Monocytes/100 WBC (Bld) 8.8 % Normal 0-10 [facility] Comment on above: Order Comment: 109-1 Performed By: #### L 100.0100 ####[facility] [address] [place], [address] Neutrophils/100 WBC (Bld) 62.0 % Normal 47-70 [facility] Comment on above: Order Comment: 109-1 Performed By: #### L 100.0100 ####[facility] [address] [place], [address] Nucleated RBC (Bld) [#/Vol] 0 10*3/uL Normal 0-5 [facility] Comment on above: Order Comment: 109-1 Performed By: #### L 100.0100 ####[facility] [address] [place], [address] Platelet mean volume (Bld) [Entitic vol] 10.9 fL Normal 6.2-12.0 [facility] Comment on above: Order Comment: 109-1 Performed By: #### L 100.0100 ####[facility] [address] [place], [address] Platelets (Bld) [#/Vol] 218 10*3/uL Normal 150-450 [facility] Comment on above: Order Comment: 109-1 Performed By: #### L 100.0100 ####[facility] [address] [place], [address] RBC (Bld) [#/Vol] 4.33 10*6/uL Low 4.6-6.2 [facility] Comment on above: Order Comment: 109-1 Performed By: #### L 100.0100 ####[facility] [address] [place], [address] RDW SD 44.0 fl High 35.1-43.9 [facility] Comment on above: Order Comment: 109-1 Performed By: #### L 100.0100 ####[facility] [address] [place], [address] WBC (Bld) [#/Vol] 8.2 10*3/uL Normal 4.4-11.0 [facility] Comment on above: Order Comment: 109-1 Performed By: #### L 100.0100 ####[facility] [address] [place], [address] Eosinophil percentageOrdered By: Renard Burgos on 06-17-2024 Eosinophils/100 WBC (Bld) 3.4 % 0-5 [facility] Erythrocyte distribution wid th ratioOrdered By: Renard Burgos on 06-17-2024 Erythrocyte distribution width (RBC) [Ratio] 13.3 % 11.6-14.6 [facility] Erythrocyte distribution wid th standard deviationOrdered By: Renard Burgos on 06-17-2024 Erythrocyte distribution width (RBC) [Entitic vol] 44.0 fL High 35.1-43.9 [facility] Erythrocyte distribution width (RBC) [Ratio] 44.0 fl High 35.1-43.9 [facility] Hematocrit Auto (Bld) [Volum e fraction]Ordered By: Renard Burgos on 06-17-2024 Hematocrit (Bld) [Volume fraction] 39.3 % Low 40-54 [facility] Hemoglobin measurementOrdere d By: Renard Burgos on 06-17-2024 Hemoglobin (Bld) [Mass/Vol] 12.8 g/dL Low 13.0-16.5 [facility] Immature granulocytes/100 WB C Auto (Bld)Ordered By: Renard Burgos on 06-17-2024 Immature granulocytes/100 WBC (Bld) 0.200 % 0.0-0.9 [facility] Comment on above: IG% - Immature Granu locytes (promyelocytes, myelocytes and metamyelocytes) > 1% indicates that a LEFT SHIFT is Present. Lymphocytes Auto (Unsp spec) [#/Vol]Ordered By: Renard Burgos on 06-17-2024 Lymphocytes (Bld) [#/Vol] 2.00 10*3/uL 0.83-4.51 [facility] Lymphocytes/100 WBC Auto (Un sp spec)Ordered By: Renard Burgos on 06-17-2024 Lymphocytes/100 WBC (Bld) 24.5 % 19-41 [facility] MCV (mean corpuscular volume ) determinationOrdered By: Renard Burgos on 06-17-2024 MCV (RBC) [Entitic vol] 90.8 fL 80-94 [facility] Mean corpuscular hemoglobin (MCH) determinationOrdered By: Renard Burgos on 06-17-2024 MCH (RBC) [Entitic mass] 29.6 pg 27.0-32.0 [facility] Mean corpuscular hemoglobin concentration (MCHC) determinationOrdered By: Renard Burgos on 06-17-2024 MCHC (RBC) [Mass/Vol] 32.6 g/dL 32-36 [facility] Mean platelet volume determi nationOrdered By: Renard Burgos on 06-17-2024 Platelet mean volume (Bld) [Entitic vol] 10.9 fL 6.2-12.0 [facility] Monocyte percentageOrdered B y: Renard Burgos on 06-17-2024 Monocytes/100 WBC (Bld) 8.8 % 0-10 [facility] Neutrophil percentageOrdered By: Renard Burgos on 06-17-2024 Neutrophils/100 WBC (Bld) 62.0 % 47-70 [facility] Nucleated red blood cell per centageOrdered By: Renard Burgos on 06-17-2024 Nucleated RBC/100 WBC (Bld) [Ratio] 0 % 0-5 [facility] Platelet countOrdered By: Garrick Bhatt on 06-17-2024 Platelets (Bld) [#/Vol] 218 10*3/uL 150-450 [facility] RBC Auto (Bld) [#/Vol]Ordere d By: Renard Burgos on 06-17-2024 RBC (Bld) [#/Vol] 4.33 10*6/uL Low 4.6-6.2 [facility] White blood cell (WBC) count Ordered By: Renard Burgos on 06-17-2024 WBC (Bld) [#/Vol] 8.2 10*3/uL 4.4-11.0 [facility] Absolute lymphocyte countOrd ered By: Renard Burgos on 06-10-2024 Lymphocytes Auto (Unsp spec) [#/Vol] 2.38 10*3/uL 0.83-4.51 [facility] Absolute neutrophil countOrd ered By: Renard Burgos on 06-10-2024 Neutrophils (Bld) [#/Vol] 5.3 10*3/uL 2.0-7.7 [facility] Automated lymphocyte count a s percentage of total leukocytesOrdered By: Renard Burgos on 06-10-2024 Lymphocytes/100 WBC Auto (Unsp spec) 27.5 % 19-41 [facility] Basophil percentageOrdered B y: Renard Burgos on 06-10-2024 Basophils/100 WBC (Bld) 0.7 % 0-1 [facility] CBC W/Diff, Automatedon 06-01 0-2024 Absolute Lymph 2.38 X10 3/uL Normal 0.83-4.51 [facility] Comment on above: Order Comment: 109.1 Performed By: #### L 100.0100 ####[facility] [address] [place], [address] Absolute Neut 5.3 X10 3/uL Normal 2.0-7.7 [facility] Comment on above: Order Comment: 109.1 Performed By: #### L 100.0100 ####[facility] [address] [place], [address] Basophils/100 WBC (Bld) 0.7 % Normal 0-1 [facility] Comment on above: Order Comment: 109.1 Performed By: #### L 100.0100 ####[facility] [address] [place], [address] Eosinophils/100 WBC (Bld) 0.7 % Normal 0-5 [facility] Comment on above: Order Comment: 109.1 Performed By: #### L 100.0100 ####[facility] [address] [place], [address] Erythrocyte distribution width (RBC) [Ratio] 13.1 % Normal 11.6-14.6 [facility] Comment on above: Order Comment: 109.1 Performed By: #### L 100.0100 ####[facility] [address] [place], [address] Hematocrit (Bld) [Volume fraction] 41.1 % Normal 40-54 [facility] Comment on above: Order Comment: 109.1 Performed By: #### L 100.0100 ####[facility] [address] [place], [address] Hemoglobin (Bld) [Mass/Vol] 13.5 g/dL Normal 13.0-16.5 [facility] Comment on above: Order Comment: 109.1 Performed By: #### L 100.0100 ####[facility] [address] [place], [address] IG% 0.500 Normal 0.0-0.9 [facility] Comment on above: Order Comment: 109.1 Result Comment: IG% - Immature Granulocytes (promyelocytes, myelocytes andmetamyelocytes) > 1% indicates that a LEFT SHIFT is Present. Performed By: #### L 100.0100 ####[facility] [address] [place], [address] Lymphocytes/100 WBC (Bld) 27.5 % Normal 19-41 [facility] Comment on above: Order Comment: 109.1 Performed By: #### L 100.0100 ####[facility] [address] [place], [address] MCH (RBC) [Entitic mass] 30.1 pg Normal 27.0-32.0 [facility] Comment on above: Order Comment: 109.1 Performed By: #### L 100.0100 ####[facility] [address] [place], [address] MCHC (RBC) [Mass/Vol] 32.8 g/dL Normal 32-36 [facility] Comment on above: Order Comment: 109.1 Performed By: #### L 100.0100 ####[facility] [address] [place], [address] MCV (RBC) [Entitic vol] 91.7 fL Normal 80-94 [facility] Comment on above: Order Comment: 109.1 Performed By: #### L 100.0100 ####[facility] [address] [place], [address] Monocytes/100 WBC (Bld) 9.6 % Normal 0-10 [facility] Comment on above: Order Comment: 109.1 Performed By: #### L 100.0100 ####[facility] [address] [place], [address] Neutrophils/100 WBC (Bld) 61.0 % Normal 47-70 [facility] Comment on above: Order Comment: 109.1 Performed By: #### L 100.0100 ####[facility] [address] [place], [address] Nucleated RBC (Bld) [#/Vol] 0 10*3/uL Normal 0-5 [facility] Comment on above: Order Comment: 109.1 Performed By: #### L 100.0100 ####[facility] [address] [place], [address] Platelet mean volume (Bld) [Entitic vol] 11.0 fL Normal 6.2-12.0 [facility] Comment on above: Order Comment: 109.1 Performed By: #### L 100.0100 ####[facility] [address] [place], [address] Platelets (Bld) [#/Vol] 261 10*3/uL Normal 150-450 [facility] Comment on above: Order Comment: 109.1 Performed By: #### L 100.0100 ####[facility] [address] [place], [address] RBC (Bld) [#/Vol] 4.48 10*6/uL Low 4.6-6.2 [facility] Comment on above: Order Comment: 109.1 Performed By: #### L 100.0100 ####[facility] [address] [place], [address] RDW SD 43.2 fl Normal 35.1-43.9 [facility] Comment on above: Order Comment: 109.1 Performed By: #### L 100.0100 ####[facility] [address] [place], [address] WBC (Bld) [#/Vol] 8.6 10*3/uL Normal 4.4-11.0 [facility] Comment on above: Order Comment: 109.1 Performed By: #### L 100.0100 ####[facility] [address] [place], [address] Eosinophil percentageOrdered By: Renard Burgos on 06-10-2024 Eosinophils/100 WBC (Bld) 0.7 % 0-5 [facility] Erythrocyte distribution wid th ratioOrdered By: Renard Burgos on 06-10-2024 Erythrocyte distribution width (RBC) [Ratio] 13.1 % 11.6-14.6 [facility] Erythrocyte distribution wid th standard deviationOrdered By: Renard Burgos on 06-10-2024 Erythrocyte distribution width (RBC) [Entitic vol] 43.2 fL 35.1-43.9 [facility] Erythrocyte distribution width (RBC) [Ratio] 43.2 fl 35.1-43.9 [facility] Hematocrit Auto (Bld) [Volum e fraction]Ordered By: Renard Burgos on 06-10-2024 Hematocrit (Bld) [Volume fraction] 41.1 % 40-54 [facility] Hemoglobin measurementOrdere d By: Renard Burgos on 06-10-2024 Hemoglobin (Bld) [Mass/Vol] 13.5 g/dL 13.0-16.5 [facility] Immature granulocytes/100 WB C Auto (Bld)Ordered By: Renard Burgos on 06-10-2024 Immature granulocytes/100 WBC (Bld) 0.500 % 0.0-0.9 [facility] Comment on above: IG% - Immature Granu locytes (promyelocytes, myelocytes and metamyelocytes) > 1% indicates that a LEFT SHIFT is Present. Lymphocytes Auto (Unsp spec) [#/Vol]Ordered By: Renard Burgos on 06-10-2024 Lymphocytes (Bld) [#/Vol] 2.38 10*3/uL 0.83-4.51 [facility] Lymphocytes/100 WBC Auto (Un sp spec)Ordered By: Renard Burgos on 06-10-2024 Lymphocytes/100 WBC (Bld) 27.5 % 19-41 [facility] MCV (mean corpuscular volume ) determinationOrdered By: Renard Burgos on 06-10-2024 MCV (RBC) [Entitic vol] 91.7 fL 80-94 [facility] Mean corpuscular hemoglobin (MCH) determinationOrdered By: Renard Burgos on 06-10-2024 MCH (RBC) [Entitic mass] 30.1 pg 27.0-32.0 [facility] Mean corpuscular hemoglobin concentration (MCHC) determinationOrdered By: Renard Burgos on 06-10-2024 MCHC (RBC) [Mass/Vol] 32.8 g/dL 32-36 [facility] Mean platelet volume determi nationOrdered By: Renard Burgos on 06-10-2024 Platelet mean volume (Bld) [Entitic vol] 11.0 fL 6.2-12.0 [facility] Monocyte percentageOrdered B y: Renard Burgos on 06-10-2024 Monocytes/100 WBC (Bld) 9.6 % 0-10 [facility] Neutrophil percentageOrdered By: Renard Burgos on 06-10-2024 Neutrophils/100 WBC (Bld) 61.0 % 47-70 [facility] Nucleated red blood cell per centageOrdered By: Renard Burgos on 06-10-2024 Nucleated RBC/100 WBC (Bld) [Ratio] 0 % 0-5 [facility] Platelet countOrdered By: Garrick Bhatt on 06-10-2024 Platelets (Bld) [#/Vol] 261 10*3/uL 150-450 [facility] RBC Auto (Bld) [#/Vol]Ordere d By: Renard Burgos on 06-10-2024 RBC (Bld) [#/Vol] 4.48 10*6/uL Low 4.6-6.2 [facility] Urine Cultureon 06-10-2024 URC Normal [facility] Comment on above: Performed By: #### M 100.2200, L400.0001 ####[facility] [address] [place], [place], [id number] White blood cell (WBC) count Ordered By: Renard Burgos on 06-10-2024 WBC (Bld) [#/Vol] 8.6 10*3/uL 4.4-11.0 [facility] Bilirubin Test strip Ql (U)O rdered By: Renard Burgos on 06-07-2024 Bilirubin Ql (U) Negative Negative [facility] CBC-Complete Blood Cnt No Di ffon 06-07-2024 Erythrocyte distribution width (RBC) [Ratio] 13.0 % Normal 11.6-14.6 [facility] Comment on above: Order Comment: 109-1 Performed By: #### L 100.0500 ####[facility] [address] [place], [address] Hematocrit (Bld) [Volume fraction] 39.3 % Low 40-54 [facility] Comment on above: Order Comment: 109-1 Performed By: #### L 100.0500 ####[facility] [address] [place], [address] Hemoglobin (Bld) [Mass/Vol] 13.0 g/dL Normal 13.0-16.5 [facility] Comment on above: Order Comment: 109-1 Performed By: #### L 100.0500 ####[facility] [address] [place], [address] MCH (RBC) [Entitic mass] 30.2 pg Normal 27.0-32.0 [facility] Comment on above: Order Comment: 109-1 Performed By: #### L 100.0500 ####[facility] [address] [place], [address] MCHC (RBC) [Mass/Vol] 33.1 g/dL Normal 32-36 [facility] Comment on above: Order Comment: 109-1 Performed By: #### L 100.0500 ####[facility] [address] [place], [address] MCV (RBC) [Entitic vol] 91.2 fL Normal 80-94 [facility] Comment on above: Order Comment: 109-1 Performed By: #### L 100.0500 ####[facility] [address] [place], [address] Platelet mean volume (Bld) [Entitic vol] 10.8 fL Normal 6.2-12.0 [facility] Comment on above: Order Comment: 109-1 Performed By: #### L 100.0500 ####[facility] [address] [place], [address] Platelets (Bld) [#/Vol] 251 10*3/uL Normal 150-450 [facility] Comment on above: Order Comment: 109-1 Performed By: #### L 100.0500 ####[facility] [address] [place], [address] RBC (Bld) [#/Vol] 4.31 10*6/uL Low 4.6-6.2 [facility] Comment on above: Order Comment: 109-1 Performed By: #### L 100.0500 ####[facility] [address] [place], [address] RDW SD 43.7 fl Normal 35.1-43.9 [facility] Comment on above: Order Comment: 109-1 Performed By: #### L 100.0500 ####[facility] [address] [place], [address] WBC (Bld) [#/Vol] 9.9 10*3/uL Normal 4.4-11.0 [facility] Comment on above: Order Comment: 109-1 Performed By: #### L 100.0500 ####[facility] [address] [place], [address] Epithelial cells.squamous LM Ql (Urine sed)Ordered By: Renard Burgos on 06-07-2024 Epithelial cells.squamous LM.HPF (Urine sed) [#/Area] 0 /[HPF] 0-5 [facility] Erythrocyte distribution wid th ratioOrdered By: Renard Burgos on 06-07-2024 Erythrocyte distribution width (RBC) [Ratio] 13.0 % 11.6-14.6 [facility] Erythrocyte distribution wid th standard deviationOrdered By: Renard Burgos on 06-07-2024 Erythrocyte distribution width (RBC) [Entitic vol] 43.7 fL 35.1-43.9 [facility] Erythrocyte distribution width (RBC) [Ratio] 43.7 fl 35.1-43.9 [facility] Glucose Ql (U)Ordered By: Garrick Bhatt on 06-07-2024 Urine Glucose (UA) Normal mg/dl Normal [facility] Hematocrit Auto (Bld) [Volum e fraction]Ordered By: Renard Burgos on 06-07-2024 Hematocrit (Bld) [Volume fraction] 39.3 % Low 40-54 [facility] Hemoglobin measurementOrdere d By: Renard Burgos on 06-07-2024 Hemoglobin (Bld) [Mass/Vol] 13.0 g/dL 13.0-16.5 [facility] Ketones Test strip Ql (U)Ord ered By: Renard Burgos on 06-07-2024 Ketones Ql (U) Negative Negative [facility] MCV (mean corpuscular volume ) determinationOrdered By: Renard Burgos on 06-07-2024 MCV (RBC) [Entitic vol] 91.2 fL 80-94 [facility] Mean corpuscular hemoglobin (MCH) determinationOrdered By: Renard Burgos on 06-07-2024 MCH (RBC) [Entitic mass] 30.2 pg 27.0-32.0 [facility] Mean corpuscular hemoglobin concentration (MCHC) determinationOrdered By: Renard Burgos on 06-07-2024 MCHC (RBC) [Mass/Vol] 33.1 g/dL 32-36 [facility] Mean platelet volume determi nationOrdered By: Renard Burgos on 06-07-2024 Platelet mean volume (Bld) [Entitic vol] 10.8 fL 6.2-12.0 [facility] Microscopic analysis of urin e for red blood cells (RBC)Ordered By: Renard Burgos on 06-07-2024 Microscopic analysis of urine for red blood cells (RBC) 0 SEEN /hpf 0-5 [facility] Urine RBC 0 SEEN /hpf 0-5 [facility] Mucus LM Ql (Urine sed)Order ed By: Renard Burgos on 06-07-2024 Mucus Ql (Urine sed) 0 SEEN /hpf [facility] Nitrite Test strip Ql (U)Ord ered By: Renard Burgos on 06-07-2024 Nitrite Ql (U) Negative Negative [facility] Platelet countOrdered By: Garrick Bhatt on 06-07-2024 Platelets (Bld) [#/Vol] 251 10*3/uL 150-450 [facility] Protein Test strip Ql (U)Ord ered By: Renard Burgos on 06-07-2024 Protein Ql (U) 15 mg/dl High Negative [facility] RBC Auto (Bld) [#/Vol]Ordere d By: Renard Burgos on 06-07-2024 RBC (Bld) [#/Vol] 4.31 10*6/uL Low 4.6-6.2 [facility] Squamous epithelial cells de tection in urine sediment by light microscopyOrdered By: Renard Burgos on 06-07-2024 Epithelial cells.squamous LM Ql (Urine sed) 0-5 SEEN /hpf 0-5 [facility] Urinalysis, Completeon 06-07 Mucus Ql (Urine sed) 0 SEEN Normal [facility] Comment on above: Order Comment: CLEAN CATCH Performed By: #### M 100.2200, L400.0001 ####[facility] [address] [place], [address] Urine blood detectionOrdered By: Renard Burgos on 06-07-2024 Urine Occult Blood Negative Negative [facility] Urine clarityOrdered By: Lyubov Burgos on 06-07-2024 Clarity (U) Clear Clear [facility] Urine color determinationOrd ered By: Renard Burgos on 06-07-2024 Color (U) Yellow Yellow [facility] Urine cultureOrdered By: Lyubov Burgos on 06-07-2024 Bacteria identified Cx Nom (U) Pseudomonas aeruginosa Abnormal [facility] Bacteria identified Cx Nom (U) Pseudomonas aeruginosa Abnormal [facility] Urine glucose detectionOrder ed By: Renard Burgos on 06-07-2024 Glucose Ql (U) Normal mg/dl Normal [facility] Urine leukocyte esterase det ection by dipstickOrdered By: Renard Burgos on 06-07-2024 Leukocyte esterase Test strip Ql (U) Negative Negative [facility] Urine pHOrdered By: Renard ocampo on 06-07-2024 pH (U) 7.0 [pH] 5.0 - 8.0 [facility] Urine sediment bacteria coun t by microscopy (number/high power field)Ordered By: Renard Burgos on 06-07-2024 Bacteria LM.HPF (Urine sed) [#/Area] 2 /[HPF] None Seen [facility] Urine sediment yeast count b y microscopy (number/high powered field)Ordered By: Renard Burgos on 06-07-2024 Yeast LM.HPF (Urine sed) [#/Area] 1 /[HPF] None Seen [facility] Urine specific gravity measu rementOrdered By: Renard Burgos on 06-07-2024 Specific gravity (U) [Rel density] 1.010 1.002-1.030 [facility] Urine urobilinogen measureme ntOrdered By: Renard Burgos on 06-07-2024 Urobilinogen Ql (U) 1 mg/dl High Normal [facility] Urobilinogen Ql (U)Ordered B y: Renard Burgos on 06-07-2024 Urobilinogen (U) [Mass/Vol] 1 mg/dL High Normal [facility] White blood cell (WBC) count Ordered By: Renard Burgos on 06-07-2024 WBC (Bld) [#/Vol] 9.9 10*3/uL 4.4-11.0 [facility] White blood cell countOrdere d By: Renard Burgos on 06-07-2024 Urine WBC 0-5 SEEN /hpf 0-5 [facility] White blood cell count 0-5 SEEN /hpf 0-5 [facility] Yeast LM.HPF (Urine sed) [#/ Area]Ordered By: Renard Burgos on 06-07-2024 Urine Yeast 1+ /hpf None Seen [facility] Absolute lymphocyte countOrd ered By: Renard Burgos on 06-03-2024 Lymphocytes Auto (Unsp spec) [#/Vol] 1.94 10*3/uL 0.83-4.51 [facility] Absolute neutrophil countOrd ered By: Renard Burgos on 06-03-2024 Neutrophils (Bld) [#/Vol] 9.5 10*3/uL High 2.0-7.7 [facility] Automated lymphocyte count a s percentage of total leukocytesOrdered By: Renard Burgos on 06-03-2024 Lymphocytes/100 WBC Auto (Unsp spec) 15.7 % Low 19-41 [facility] Basophil percentageOrdered B y: Renard Burgos on 06-03-2024 Basophils/100 WBC (Bld) 0.5 % 0-1 [facility] CBC W/Diff, Automatedon Absolute Lymph 1.94 X10 3/uL Normal 0.83-4.51 [facility] Comment on above: Order Comment: 109-1 Performed By: #### L 100.0100 ####[facility] [address] [place], [address] Absolute Neut 9.5 X10 3/uL High 2.0-7.7 [facility] Comment on above: Order Comment: 109-1 Performed By: #### L 100.0100 ####[facility] [address] [place], [address] Basophils/100 WBC (Bld) 0.5 % Normal 0-1 [facility] Comment on above: Order Comment: 109-1 Performed By: #### L 100.0100 ####[facility] [address] [place], [address] Eosinophils/100 WBC (Bld) 0.3 % Normal 0-5 [facility] Comment on above: Order Comment: 109-1 Performed By: #### L 100.0100 ####[facility] [address] [place], [address] Erythrocyte distribution width (RBC) [Ratio] 13.0 % Normal 11.6-14.6 [facility] Comment on above: Order Comment: 109-1 Performed By: #### L 100.0100 ####[facility] [address] [place], [address] Hematocrit (Bld) [Volume fraction] 40.1 % Normal 40-54 [facility] Comment on above: Order Comment: 109-1 Performed By: #### L 100.0100 ####[facility] [address] [place], [address] Hemoglobin (Bld) [Mass/Vol] 13.2 g/dL Normal 13.0-16.5 [facility] Comment on above: Order Comment: 109-1 Performed By: #### L 100.0100 ####[facility] [address] [place], [address] IG% 0.400 Normal 0.0-0.9 [facility] Comment on above: Order Comment: 109-1 Result Comment: IG% - Immature Granulocytes (promyelocytes, myelocytes andmetamyelocytes) > 1% indicates that a LEFT SHIFT is Present. Performed By: #### L 100.0100 ####[facility] [address] [place] [place], [address] Lymphocytes/100 WBC (Bld) 15.7 % Low 19-41 [facility] Comment on above: Order Comment: 109-1 Performed By: #### L 100.0100 ####[facility] [address] [place], [address] MCH (RBC) [Entitic mass] 30.1 pg Normal 27.0-32.0 [facility] Comment on above: Order Comment: 109-1 Performed By: #### L 100.0100 ####[facility] [address] [place], [address] MCHC (RBC) [Mass/Vol] 32.9 g/dL Normal 32-36 [facility] Comment on above: Order Comment: 109-1 Performed By: #### L 100.0100 ####[facility] [address] [place], [address] MCV (RBC) [Entitic vol] 91.3 fL Normal 80-94 [facility] Comment on above: Order Comment: 109-1 Performed By: #### L 100.0100 ####[facility] [address] [place], [address] Monocytes/100 WBC (Bld) 6.6 % Normal 0-10 [facility] Comment on above: Order Comment: 109-1 Performed By: #### L 100.0100 ####[facility] [address] [place], [address] Neutrophils/100 WBC (Bld) 76.5 % High 47-70 [facility] Comment on above: Order Comment: 109-1 Performed By: #### L 100.0100 ####[facility] [address] [place], [address] Nucleated RBC (Bld) [#/Vol] 0 10*3/uL Normal 0-5 [facility] Comment on above: Order Comment: 109-1 Performed By: #### L 100.0100 ####[facility] [address] [place], [address] Platelet mean volume (Bld) [Entitic vol] 11.1 fL Normal 6.2-12.0 [facility] Comment on above: Order Comment: 109-1 Performed By: #### L 100.0100 ####[facility] [address] [place], [address] Platelets (Bld) [#/Vol] 249 10*3/uL Normal 150-450 [facility] Comment on above: Order Comment: 109-1 Performed By: #### L 100.0100 ####[facility] [address] [place], [address] RBC (Bld) [#/Vol] 4.39 10*6/uL Low 4.6-6.2 [facility] Comment on above: Order Comment: 109-1 Performed By: #### L 100.0100 ####[facility] [address] [place], [address] RDW SD 42.8 fl Normal 35.1-43.9 [facility] Comment on above: Order Comment: 109-1 Performed By: #### L 100.0100 ####[facility] [address] [place], [address] WBC (Bld) [#/Vol] 12.4 10*3/uL High 4.4-11.0 [facility] Comment on above: Order Comment: 109-1 Performed By: #### L 100.0100 ####[facility] [address] [place], [address] Eosinophil percentageOrdered By: Renard Burgos on 06-03-2024 Eosinophils/100 WBC (Bld) 0.3 % 0-5 [facility] Erythrocyte distribution wid th ratioOrdered By: Renard Burgos on 06-03-2024 Erythrocyte distribution width (RBC) [Ratio] 13.0 % 11.6-14.6 [facility] Erythrocyte distribution wid th standard deviationOrdered By: Renard Burgos on 06-03-2024 Erythrocyte distribution width (RBC) [Entitic vol] 42.8 fL 35.1-43.9 [facility] Erythrocyte distribution width (RBC) [Ratio] 42.8 fl 35.1-43.9 [facility] Hematocrit Auto (Bld) [Volum e fraction]Ordered By: Renard Burgos on 06-03-2024 Hematocrit (Bld) [Volume fraction] 40.1 % 40-54 [facility] Hemoglobin measurementOrdere d By: Renard Burgos on 06-03-2024 Hemoglobin (Bld) [Mass/Vol] 13.2 g/dL 13.0-16.5 [facility] Immature granulocytes/100 WB C Auto (Bld)Ordered By: Renard Burgos on 06-03-2024 Immature granulocytes/100 WBC (Bld) 0.400 % 0.0-0.9 [facility] Comment on above: IG% - Immature Granu locytes (promyelocytes, myelocytes and metamyelocytes) > 1% indicates that a LEFT SHIFT is Present. Lymphocytes Auto (Unsp spec) [#/Vol]Ordered By: Renard Burgos on 06-03-2024 Lymphocytes (Bld) [#/Vol] 1.94 10*3/uL 0.83-4.51 [facility] Lymphocytes/100 WBC Auto (Un sp spec)Ordered By: Renard Burgos on 06-03-2024 Lymphocytes/100 WBC (Bld) 15.7 % Low 19-41 [facility] MCV (mean corpuscular volume ) determinationOrdered By: Renard Burgos on 06-03-2024 MCV (RBC) [Entitic vol] 91.3 fL 80-94 [facility] Mean corpuscular hemoglobin (MCH) determinationOrdered By: Renard Burgos on 06-03-2024 MCH (RBC) [Entitic mass] 30.1 pg 27.0-32.0 [facility] Mean corpuscular hemoglobin concentration (MCHC) determinationOrdered By: Renard Burgos on 06-03-2024 MCHC (RBC) [Mass/Vol] 32.9 g/dL 32-36 [facility] Mean platelet volume determi nationOrdered By: Renard Burgos on 06-03-2024 Platelet mean volume (Bld) [Entitic vol] 11.1 fL 6.2-12.0 [facility] Monocyte percentageOrdered B y: Renard Burgos on 06-03-2024 Monocytes/100 WBC (Bld) 6.6 % 0-10 [facility] Neutrophil percentageOrdered By: Renard Burgos on 06-03-2024 Neutrophils/100 WBC (Bld) 76.5 % High 47-70 [facility] Nucleated red blood cell per centageOrdered By: Renard Burgos on 06-03-2024 Nucleated RBC/100 WBC (Bld) [Ratio] 0 % 0-5 [facility] Platelet countOrdered By: Garrick Bhatt on 06-03-2024 Platelets (Bld) [#/Vol] 249 10*3/uL 150-450 [facility] RBC Auto (Bld) [#/Vol]Ordere d By: Renard Burgos on 06-03-2024 RBC (Bld) [#/Vol] 4.39 10*6/uL Low 4.6-6.2 [facility] White blood cell (WBC) count Ordered By: Renard Burgos on 06-03-2024 WBC (Bld) [#/Vol] 12.4 10*3/uL High 4.4-11.0 [facility] Absolute lymphocyte countOrd ered By: Renard Burgos on 05-27-2024 Lymphocytes Auto (Unsp spec) [#/Vol] 1.81 10*3/uL 0.83-4.51 [facility] Absolute neutrophil countOrd ered By: Renard Burgos on 05-27-2024 Neutrophils (Bld) [#/Vol] 5.0 10*3/uL 2.0-7.7 [facility] Automated lymphocyte count a s percentage of total leukocytesOrdered By: Renard Burgos on 05-27-2024 Lymphocytes/100 WBC Auto (Unsp spec) 24.4 % 19-41 [facility] Basophil percentageOrdered B y: Renard Burgos on 05-27-2024 Basophils/100 WBC (Bld) 0.5 % 0-1 [facility] CBC W/Diff, Automatedon 05-02 Absolute Lymph 1.81 X10 3/uL Normal 0.83-4.51 [facility] Comment on above: Order Comment: 109.1 Performed By: #### L 100.0100 ####[facility] [address] [place], [address] Absolute Neut 5.0 X10 3/uL Normal 2.0-7.7 [facility] Comment on above: Order Comment: 109.1 Performed By: #### L 100.0100 ####[facility] [address] [place], [address] Basophils/100 WBC (Bld) 0.5 % Normal 0-1 [facility] Comment on above: Order Comment: 109.1 Performed By: #### L 100.0100 ####[facility] [address] [place], [address] Eosinophils/100 WBC (Bld) 0.5 % Normal 0-5 [facility] Comment on above: Order Comment: 109.1 Performed By: #### L 100.0100 ####[facility] [address] [place], [address] Erythrocyte distribution width (RBC) [Ratio] 12.8 % Normal 11.6-14.6 [facility] Comment on above: Order Comment: 109.1 Performed By: #### L 100.0100 ####[facility] [address] [place], [address] Hematocrit (Bld) [Volume fraction] 39.8 % Low 40-54 [facility] Comment on above: Order Comment: 109.1 Performed By: #### L 100.0100 ####[facility] [address] [place], [address] Hemoglobin (Bld) [Mass/Vol] 13.2 g/dL Normal 13.0-16.5 [facility] Comment on above: Order Comment: 109.1 Performed By: #### L 100.0100 ####[facility] [address] [place], [address] IG% 0.400 Normal 0.0-0.9 [facility] Comment on above: Order Comment: 109.1 Result Comment: IG% - Immature Granulocytes (promyelocytes, myelocytes andmetamyelocytes) > 1% indicates that a LEFT SHIFT is Present. Performed By: #### L 100.0100 ####[facility] [address] [place], [address] Lymphocytes/100 WBC (Bld) 24.4 % Normal 19-41 [facility] Comment on above: Order Comment: 109.1 Performed By: #### L 100.0100 ####[facility] [address] [place], [address] MCH (RBC) [Entitic mass] 30.2 pg Normal 27.0-32.0 [facility] Comment on above: Order Comment: 109.1 Performed By: #### L 100.0100 ####[facility] [address] [place], [address] MCHC (RBC) [Mass/Vol] 33.2 g/dL Normal 32-36 [facility] Comment on above: Order Comment: 109.1 Performed By: #### L 100.0100 ####[facility] [address] [place], [address] MCV (RBC) [Entitic vol] 91.1 fL Normal 80-94 [facility] Comment on above: Order Comment: 109.1 Performed By: #### L 100.0100 ####[facility] [address] [place], [address] Monocytes/100 WBC (Bld) 7.0 % Normal 0-10 [facility] Comment on above: Order Comment: 109.1 Performed By: #### L 100.0100 ####[facility] [address] [place], [address] Neutrophils/100 WBC (Bld) 67.2 % Normal 47-70 [facility] Comment on above: Order Comment: 109.1 Performed By: #### L 100.0100 ####[facility] [address] [place], [address] Nucleated RBC (Bld) [#/Vol] 0 10*3/uL Normal 0-5 [facility] Comment on above: Order Comment: 109.1 Performed By: #### L 100.0100 ####[facility] [address] [place], [address] Platelet mean volume (Bld) [Entitic vol] 10.3 fL Normal 6.2-12.0 [facility] Comment on above: Order Comment: 109.1 Performed By: #### L 100.0100 ####[facility] [address] [place], [address] Platelets (Bld) [#/Vol] 239 10*3/uL Normal 150-450 [facility] Comment on above: Order Comment: 109.1 Performed By: #### L 100.0100 ####[facility] [address] [place], [address] RBC (Bld) [#/Vol] 4.37 10*6/uL Low 4.6-6.2 [facility] Comment on above: Order Comment: 109.1 Performed By: #### L 100.0100 ####[facility] [address] [place], [address] RDW SD 42.5 fl Normal 35.1-43.9 [facility] Comment on above: Order Comment: 109.1 Performed By: #### L 100.0100 ####[facility] [address] [place], [address] WBC (Bld) [#/Vol] 7.4 10*3/uL Normal 4.4-11.0 [facility] Comment on above: Order Comment: 109.1 Performed By: #### L 100.0100 ####[facility] [address] [place], [address] Eosinophil percentageOrdered By: Renard Burgos on 05-27-2024 Eosinophils/100 WBC (Bld) 0.5 % 0-5 [facility] Erythrocyte distribution wid th ratioOrdered By: Renard Burgos on 05-27-2024 Erythrocyte distribution width (RBC) [Ratio] 12.8 % 11.6-14.6 [facility] Erythrocyte distribution wid th standard deviationOrdered By: Renard Burgos on 05-27-2024 Erythrocyte distribution width (RBC) [Entitic vol] 42.5 fL 35.1-43.9 [facility] Erythrocyte distribution width (RBC) [Ratio] 42.5 fl 35.1-43.9 [facility] Hematocrit Auto (Bld) [Volum e fraction]Ordered By: Renard Burgos on 05-27-2024 Hematocrit (Bld) [Volume fraction] 39.8 % Low 40-54 [facility] Hemoglobin measurementOrdere d By: Renard Burgos on 05-27-2024 Hemoglobin (Bld) [Mass/Vol] 13.2 g/dL 13.0-16.5 [facility] Immature granulocytes/100 WB C Auto (Bld)Ordered By: Renard Burgos on 05-27-2024 Immature granulocytes/100 WBC (Bld) 0.400 % 0.0-0.9 [facility] Comment on above: IG% - Immature Granu locytes (promyelocytes, myelocytes and metamyelocytes) > 1% indicates that a LEFT SHIFT is Present. Lymphocytes Auto (Unsp spec) [#/Vol]Ordered By: Renard Burgos on 05-27-2024 Lymphocytes (Bld) [#/Vol] 1.81 10*3/uL 0.83-4.51 [facility] Lymphocytes/100 WBC Auto (Un sp spec)Ordered By: Renard Burgos on 05-27-2024 Lymphocytes/100 WBC (Bld) 24.4 % 19-41 [facility] MCV (mean corpuscular volume ) determinationOrdered By: Renard Burgos on 05-27-2024 MCV (RBC) [Entitic vol] 91.1 fL 80-94 [facility] Mean corpuscular hemoglobin (MCH) determinationOrdered By: Renard Burgos on 05-27-2024 MCH (RBC) [Entitic mass] 30.2 pg 27.0-32.0 [facility] Mean corpuscular hemoglobin concentration (MCHC) determinationOrdered By: Renard Burgos on 05-27-2024 MCHC (RBC) [Mass/Vol] 33.2 g/dL 32-36 [facility] Mean platelet volume determi nationOrdered By: Renard Burgos on 05-27-2024 Platelet mean volume (Bld) [Entitic vol] 10.3 fL 6.2-12.0 [facility] Monocyte percentageOrdered B y: Renard Burgos on 05-27-2024 Monocytes/100 WBC (Bld) 7.0 % 0-10 [facility] Neutrophil percentageOrdered By: Renard Burgos on 05-27-2024 Neutrophils/100 WBC (Bld) 67.2 % 47-70 [facility] Nucleated red blood cell per centageOrdered By: Renard Burgos on 05-27-2024 Nucleated RBC/100 WBC (Bld) [Ratio] 0 % 0-5 [facility] Platelet countOrdered By: Garrick Bhatt on 05-27-2024 Platelets (Bld) [#/Vol] 239 10*3/uL 150-450 [facility] RBC Auto (Bld) [#/Vol]Ordere d By: Renard Burgos on 05-27-2024 RBC (Bld) [#/Vol] 4.37 10*6/uL Low 4.6-6.2 [facility] White blood cell (WBC) count Ordered By: Renard Burgos on 05-27-2024 WBC (Bld) [#/Vol] 7.4 10*3/uL 4.4-11.0 [facility] Absolute lymphocyte countOrd ered By: Renard Burgos on 05-20-2024 Lymphocytes Auto (Unsp spec) [#/Vol] 1.73 10*3/uL 0.83-4.51 [facility] Absolute neutrophil countOrd ered By: Renard Burgos on 05-20-2024 Neutrophils (Bld) [#/Vol] 7.0 10*3/uL 2.0-7.7 [facility] Automated blood erythrocyte countOrdered By: Renard Burgos on 05-20-2024 RBC (Bld) [#/Vol] 4.74 10*6/uL Normal 4.6-6.2 [facility] Comment on above: Order Comment: 109-1 Performed By: #### L 100.0100 ####[facility] [address] [place], [address] Automated blood hematocrit ( percentage)Ordered By: Renard Burgos on 05-20-2024 Hematocrit (Bld) [Volume fraction] 43.6 % Normal 40-54 [facility] Comment on above: Order Comment: 109-1 Performed By: #### L 100.0100 ####[facility] [address] [place], [address] Automated lymphocyte count a s percentage of total leukocytesOrdered By: Renard Burgos on 05-20-2024 Lymphocytes/100 WBC (Bld) 17.7 % Low 19-41 [facility] Comment on above: Order Comment: 109-1 Performed By: #### L 100.0100 ####[facility] [address] [place], [address] Lymphocytes/100 WBC Auto (Unsp spec) 17.7 % Low - [facility] Basophil percentageOrdered B y: Renard Burgos on 05-20-2024 Basophils/100 WBC (Bld) 0.5 % Normal 0-1 [facility] Comment on above: Order Comment: 109-1 Performed By: #### L 100.0100 ####[facility] [address] [place], [address] CBC W/Diff, Automatedon -2 0-2024 Absolute Lymph 1.73 X10 3/uL Normal 0.83-4.51 [facility] Comment on above: Order Comment: 109-1 Performed By: #### L 100.0100 ####[facility] [address] [place], [address] Absolute Neut 7.0 X10 3/uL Normal 2.0-7.7 [facility] Comment on above: Order Comment: 109-1 Performed By: #### L 100.0100 ####[facility] [address] [place], [address] IG% 0.500 Normal 0.0-0.9 [facility] Comment on above: Order Comment: 109-1 Result Comment: IG% - Immature Granulocytes (promyelocytes, myelocytes andmetamyelocytes) > 1% indicates that a LEFT SHIFT is Present. Performed By: #### L 100.0100 ####[facility] [address] [place], [address] Nucleated RBC (Bld) [#/Vol] 0 10*3/uL Normal 0-5 [facility] Comment on above: Order Comment: 109-1 Performed By: #### L 100.0100 ####[facility] [address] [place], [address] RDW SD 42.5 fl Normal 35.1-43.9 [facility] Comment on above: Order Comment: 109-1 Performed By: #### L 100.0100 ####[facility] [address] [place], [address] Eosinophil percentageOrdered By: Renard Burgos on 05-20-2024 Eosinophils/100 WBC (Bld) 0.5 % Normal 0-5 [facility] Comment on above: Order Comment: 109-1 Performed By: #### L 100.0100 ####[facility] [address] [place], [place], [address] Erythrocyte distribution wid th ratioOrdered By: Renard Burgos on 05-20-2024 Erythrocyte distribution width (RBC) [Ratio] 12.6 % Normal 11.6-14.6 [facility] Comment on above: Order Comment: 109-1 Performed By: #### L 100.0100 ####[facility] [address] [place], [place], [phone]) Erythrocyte distribution wid th standard deviationOrdered By: Renard Burgos on 05-20-2024 Erythrocyte distribution width (RBC) [Entitic vol] 42.5 fL 35.1-43.9 [facility] Erythrocyte distribution width (RBC) [Ratio] 42.5 fl 35.1-43.9 [facility] Hemoglobin measurementOrdere d By: Renard Burgos on 05-20-2024 Hemoglobin (Bld) [Mass/Vol] 14.4 g/dL Normal 13.0-16.5 [facility] Comment on above: Order Comment: 109-1 Performed By: #### L 100.0100 ####[facility] [address] [place], [place], [id number] Immature granulocytes/100 WB C Auto (Bld)Ordered By: Renard Burgos on 05-20-2024 Immature granulocytes/100 WBC (Bld) 0.500 % 0.0-0.9 [facility] Comment on above: IG% - Immature Granu locytes (promyelocytes, myelocytes and metamyelocytes) > 1% indicates that a LEFT SHIFT is Present. Lymphocytes Auto (Unsp spec) [#/Vol]Ordered By: Renard Burgos on 05-20-2024 Lymphocytes (Bld) [#/Vol] 1.73 10*3/uL 0.83-4.51 [facility] MCV (mean corpuscular volume ) determinationOrdered By: Renard Burgos on 05-20-2024 MCV (RBC) [Entitic vol] 92.0 fL Normal 80-94 [facility] Comment on above: Order Comment: 109-1 Performed By: #### L 100.0100 ####[facility] [address] [place], [place], [address] Mean corpuscular hemoglobin (MCH) determinationOrdered By: Renard Burgos on 05-20-2024 MCH (RBC) [Entitic mass] 30.4 pg Normal 27.0-32.0 [facility] Comment on above: Order Comment: 109-1 Performed By: #### L 100.0100 ####[facility] [address] [place], [place], [address] Mean corpuscular hemoglobin concentration (MCHC) determinationOrdered By: Renard Burgos on 05-20-2024 MCHC (RBC) [Mass/Vol] 33.0 g/dL Normal 32-36 [facility] Comment on above: Order Comment: 109-1 Performed By: #### L 100.0100 ####[facility] [address] [place], [place], [address] Mean platelet volume determi nationOrdered By: Renard Burgos on 05-20-2024 Platelet mean volume (Bld) [Entitic vol] 10.7 fL Normal 6.2-12.0 [facility] Comment on above: Order Comment: 109-1 Performed By: #### L 100.0100 ####[facility] [address] [place], [address] Monocyte percentageOrdered B y: Renard Burgos on 05-20-2024 Monocytes/100 WBC (Bld) 9.4 % Normal 0-10 [facility] Comment on above: Order Comment: 109-1 Performed By: #### L 100.0100 ####[facility] [address] [place], [place], [address] Neutrophil percentageOrdered By: Renard Burgos on 05-20-2024 Neutrophils/100 WBC (Bld) 71.4 % High 47-70 [facility] Comment on above: Order Comment: 109-1 Performed By: #### L 100.0100 ####[facility] [address] [place], [place], [address] Nucleated red blood cell per centageOrdered By: Renard Burgos on 05-20-2024 Nucleated RBC/100 WBC (Bld) [Ratio] 0 % 0-5 [facility] Platelet countOrdered By: Garrick Bhatt on 05-20-2024 Platelets (Bld) [#/Vol] 239 10*3/uL Normal 150-450 [facility] Comment on above: Order Comment: 109-1 Performed By: #### L 100.0100 ####[facility] [address] [place], [place], [id number] White blood cell (WBC) count Ordered By: Renard Burgos on 05-20-2024 WBC (Bld) [#/Vol] 9.8 10*3/uL Normal 4.4-11.0 [facility] Comment on above: Order Comment: 109-1 Performed By: #### L 100.0100 ####[facility] [address] [place], [place], [id number] Absolute lymphocyte countOrd ered By: Renrad Burgos on 05-13-2024 Lymphocytes Auto (Unsp spec) [#/Vol] 2.10 10*3/uL 0.83-4.51 [facility] Absolute neutrophil countOrd ered By: Renard Burgos on 05-13-2024 Neutrophils (Bld) [#/Vol] 6.2 10*3/uL 2.0-7.7 [facility] Automated lymphocyte count a s percentage of total leukocytesOrdered By: Renard Burgos on 05-13-2024 Lymphocytes/100 WBC Auto (Unsp spec) 22.8 % 19-41 [facility] Basophil percentageOrdered B y: Renard Burgos on 05-13-2024 Basophils/100 WBC (Bld) 0.5 % 0-1 [facility] CBC W/Diff, Automatedon 05-01 Absolute Lymph 2.10 X10 3/uL Normal 0.83-4.51 [facility] Comment on above: Order Comment: 109 Performed By: #### L 100.0100 ####[facility] [address] [place], [address] Absolute Neut 6.2 X10 3/uL Normal 2.0-7.7 [facility] Comment on above: Order Comment: 109 Performed By: #### L 100.0100 ####[facility] [address] [place], [address] Basophils/100 WBC (Bld) 0.5 % Normal 0-1 [facility] Comment on above: Order Comment: 109 Performed By: #### L 100.0100 ####[facility] [address] [place], [address] Eosinophils/100 WBC (Bld) 0.5 % Normal 0-5 [facility] Comment on above: Order Comment: 109 Performed By: #### L 100.0100 ####[facility] [address] [place], [address] Erythrocyte distribution width (RBC) [Ratio] 12.9 % Normal 11.6-14.6 [facility] Comment on above: Order Comment: 109 Performed By: #### L 100.0100 ####[facility] [address] [place], [address] Hematocrit (Bld) [Volume fraction] 42.5 % Normal 40-54 [facility] Comment on above: Order Comment: 109 Performed By: #### L 100.0100 ####[facility] [address] [place], [address] Hemoglobin (Bld) [Mass/Vol] 14.2 g/dL Normal 13.0-16.5 [facility] Comment on above: Order Comment: 109 Performed By: #### L 100.0100 ####[facility] [address] [place], [address] IG% 0.300 Normal 0.0-0.9 [facility] Comment on above: Order Comment: 109 Result Comment: IG% - Immature Granulocytes (promyelocytes, myelocytes andmetamyelocytes) > 1% indicates that a LEFT SHIFT is Present. Performed By: #### L 100.0100 ####[facility] [address] [place], [address] Lymphocytes/100 WBC (Bld) 22.8 % Normal 19-41 [facility] Comment on above: Order Comment: 109 Performed By: #### L 100.0100 ####[facility] [address] [place], [address] MCH (RBC) [Entitic mass] 30.3 pg Normal 27.0-32.0 [facility] Comment on above: Order Comment: 109 Performed By: #### L 100.0100 ####[facility] [address] [place] [place], [address] MCHC (RBC) [Mass/Vol] 33.4 g/dL Normal 32-36 [facility] Comment on above: Order Comment: 109 Performed By: #### L 100.0100 ####[facility] [address] [place], [address] MCV (RBC) [Entitic vol] 90.6 fL Normal 80-94 [facility] Comment on above: Order Comment: 109 Performed By: #### L 100.0100 ####[facility] [address] [place], [address] Monocytes/100 WBC (Bld) 8.7 % Normal 0-10 [facility] Comment on above: Order Comment: 109 Performed By: #### L 100.0100 ####[facility] [address] [place], [address] Neutrophils/100 WBC (Bld) 67.2 % Normal 47-70 [facility] Comment on above: Order Comment: 109 Performed By: #### L 100.0100 ####[facility] [address] [place], [address] Nucleated RBC (Bld) [#/Vol] 0 10*3/uL Normal 0-5 [facility] Comment on above: Order Comment: 109 Performed By: #### L 100.0100 ####[facility] [address] [place], [address] Platelet mean volume (Bld) [Entitic vol] 11.1 fL Normal 6.2-12.0 [facility] Comment on above: Order Comment: 109 Performed By: #### L 100.0100 ####[facility] [address] [place], [address] Platelets (Bld) [#/Vol] 218 10*3/uL Normal 150-450 [facility] Comment on above: Order Comment: 109 Performed By: #### L 100.0100 ####[facility] [address] [place], [address] RBC (Bld) [#/Vol] 4.69 10*6/uL Normal 4.6-6.2 [facility] Comment on above: Order Comment: 109 Performed By: #### L 100.0100 ####[facility] [address] [place], [address] RDW SD 42.3 fl Normal 35.1-43.9 [facility] Comment on above: Order Comment: 109 Performed By: #### L 100.0100 ####[facility] [address] [place], [address] WBC (Bld) [#/Vol] 9.2 10*3/uL Normal 4.4-11.0 [facility] Comment on above: Order Comment: 109 Performed By: #### L 100.0100 ####[facility] [address] [place], [address] Eosinophil percentageOrdered By: Renard Burgos on 05-13-2024 Eosinophils/100 WBC (Bld) 0.5 % 0-5 [facility] Erythrocyte distribution wid th ratioOrdered By: Renard Burgos on 05-13-2024 Erythrocyte distribution width (RBC) [Ratio] 12.9 % 11.6-14.6 [facility] Erythrocyte distribution wid th standard deviationOrdered By: Renard Burgos on 05-13-2024 Erythrocyte distribution width (RBC) [Entitic vol] 42.3 fL 35.1-43.9 [facility] Erythrocyte distribution width (RBC) [Ratio] 42.3 fl 35.1-43.9 [facility] Hematocrit Auto (Bld) [Volum e fraction]Ordered By: Renard Burgos on 05-13-2024 Hematocrit (Bld) [Volume fraction] 42.5 % 40-54 [facility] Hemoglobin measurementOrdere d By: Renard Burgos on 05-13-2024 Hemoglobin (Bld) [Mass/Vol] 14.2 g/dL 13.0-16.5 [facility] Immature granulocytes/100 WB C Auto (Bld)Ordered By: Renard Burgos on 05-13-2024 Immature granulocytes/100 WBC (Bld) 0.300 % 0.0-0.9 [facility] Comment on above: IG% - Immature Granu locytes (promyelocytes, myelocytes and metamyelocytes) > 1% indicates that a LEFT SHIFT is Present. Lymphocytes Auto (Unsp spec) [#/Vol]Ordered By: Renard Burgos on 05-13-2024 Lymphocytes (Bld) [#/Vol] 2.10 10*3/uL 0.83-4.51 [facility] Lymphocytes/100 WBC Auto (Un sp spec)Ordered By: Renard Burgos on 05-13-2024 Lymphocytes/100 WBC (Bld) 22.8 % 19-41 [facility] MCV (mean corpuscular volume ) determinationOrdered By: Renard Burgos on 05-13-2024 MCV (RBC) [Entitic vol] 90.6 fL 80-94 [facility] Mean corpuscular hemoglobin (MCH) determinationOrdered By: Renard Burgos on 05-13-2024 MCH (RBC) [Entitic mass] 30.3 pg 27.0-32.0 [facility] Mean corpuscular hemoglobin concentration (MCHC) determinationOrdered By: Renard Burgos on 05-13-2024 MCHC (RBC) [Mass/Vol] 33.4 g/dL 32-36 [facility] Mean platelet volume determi nationOrdered By: Renard Burgos on 05-13-2024 Platelet mean volume (Bld) [Entitic vol] 11.1 fL 6.2-12.0 [facility] Monocyte percentageOrdered B y: Renard Burgos on 05-13-2024 Monocytes/100 WBC (Bld) 8.7 % 0-10 [facility] Neutrophil percentageOrdered By: Renard Burgos on 05-13-2024 Neutrophils/100 WBC (Bld) 67.2 % 47-70 [facility] Nucleated red blood cell per centageOrdered By: Renard Burgos on 05-13-2024 Nucleated RBC/100 WBC (Bld) [Ratio] 0 % 0-5 [facility] Platelet countOrdered By: Garrick Bhatt on 05-13-2024 Platelets (Bld) [#/Vol] 218 10*3/uL 150-450 [facility] RBC Auto (Bld) [#/Vol]Ordere d By: Renard Burgos on 05-13-2024 RBC (Bld) [#/Vol] 4.69 10*6/uL 4.6-6.2 [facility] White blood cell (WBC) count Ordered By: Renard Burgos on 05-13-2024 WBC (Bld) [#/Vol] 9.2 10*3/uL 4.4-11.0 [facility] Absolute neutrophil countOrd ered By: Renard Burgos on 05-06-2024 Neutrophils (Bld) [#/Vol] 5.9 10*3/uL 2.0-7.7 [facility] Automated blood erythrocyte countOrdered By: Renard Burgos on 05-06-2024 RBC (Bld) [#/Vol] 4.85 10*6/uL Normal 4.6-6.2 [facility] Comment on above: Order Comment: 109-1 Performed By: #### L 100.0100 ####[facility] [address] [place], [address] Automated blood hematocrit ( percentage)Ordered By: Renard Burgos on 05-06-2024 Hematocrit (Bld) [Volume fraction] 45.0 % Normal 40-54 [facility] Comment on above: Order Comment: 109-1 Performed By: #### L 100.0100 ####[facility] [address] [place], [address] Automated lymphocyte count a s percentage of total leukocytesOrdered By: Renard Burgos on 05-06-2024 Lymphocytes/100 WBC (Bld) 24.4 % Normal 19-41 [facility] Comment on above: Order Comment: 109-1 Performed By: #### L 100.0100 ####[facility] [address] [place], [address] Basophil percentageOrdered B y: Renard Burgos on 05-06-2024 Basophils/100 WBC (Bld) 0.5 % Normal 0-1 [facility] Comment on above: Order Comment: 109-1 Performed By: #### L 100.0100 ####[facility] [address] [place], [address] CBC W/Diff, Automatedon Absolute Lymph 2.22 X10 3/uL Normal 0.83-4.51 [facility] Comment on above: Order Comment: 109-1 Performed By: #### L 100.0100 ####[facility] [address] [place], [address] Absolute Neut 5.9 X10 3/uL Normal 2.0-7.7 [facility] Comment on above: Order Comment: 109-1 Performed By: #### L 100.0100 ####[facility] [address] [place], [address] IG% 0.500 Normal 0.0-0.9 [facility] Comment on above: Order Comment: 109-1 Result Comment: IG% - Immature Granulocytes (promyelocytes, myelocytes andmetamyelocytes) > 1% indicates that a LEFT SHIFT is Present. Performed By: #### L 100.0100 ####[facility] [address] [place], [address] Nucleated RBC (Bld) [#/Vol] 0 10*3/uL Normal 0-5 [facility] Comment on above: Order Comment: 109-1 Performed By: #### L 100.0100 ####[facility] [address] [place], [address] RDW SD 43.9 fl Normal 35.1-43.9 [facility] Comment on above: Order Comment: 109-1 Performed By: #### L 100.0100 ####[facility] [address] [place], [address] Eosinophil percentageOrdered By: Renard Burgos on 05-06-2024 Eosinophils/100 WBC (Bld) 0.4 % Normal 0-5 [facility] Comment on above: Order Comment: 109-1 Performed By: #### L 100.0100 ####[facility] [address] [place], [address] Erythrocyte distribution wid th ratioOrdered By: Renard Burgos on 05-06-2024 Erythrocyte distribution width (RBC) [Ratio] 13.0 % Normal 11.6-14.6 [facility] Comment on above: Order Comment: 109-1 Performed By: #### L 100.0100 ####[facility] [address] [place], [address] Erythrocyte distribution wid th standard deviationOrdered By: Renard Burgos on 05-06-2024 Erythrocyte distribution width (RBC) [Entitic vol] 43.9 fL 35.1-43.9 [facility] Hemoglobin measurementOrdere d By: Renard Burgos on 05-06-2024 Hemoglobin (Bld) [Mass/Vol] 14.5 g/dL Normal 13.0-16.5 [facility] Comment on above: Order Comment: 109-1 Performed By: #### L 100.0100 ####[facility] [address] [place], [place], [phone] Immature granulocytes/100 WB C Auto (Bld)Ordered By: Renard Burgos on 05-06-2024 Immature granulocytes/100 WBC (Bld) 0.500 % 0.0-0.9 [facility] Comment on above: IG% - Immature Granu locytes (promyelocytes, myelocytes and metamyelocytes) > 1% indicates that a LEFT SHIFT is Present. Lymphocytes Auto (Unsp spec) [#/Vol]Ordered By: Renard Burgos on 05-06-2024 Lymphocytes (Bld) [#/Vol] 2.22 10*3/uL 0.83-4.51 [facility] MCV (mean corpuscular volume ) determinationOrdered By: Renard Burgos on 05-06-2024 MCV (RBC) [Entitic vol] 92.8 fL Normal 80-94 [facility] Comment on above: Order Comment: 109-1 Performed By: #### L 100.0100 ####[facility] [address] [facility] [place], [id number] Mean corpuscular hemoglobin (MCH) determinationOrdered By: Renard Burgos on 05-06-2024 MCH (RBC) [Entitic mass] 29.9 pg Normal 27.0-32.0 [facility] Comment on above: Order Comment: 109-1 Performed By: #### L 100.0100 ####[facility] [address] [facility] [address] [place], [place], [id number] Mean corpuscular hemoglobin concentration (MCHC) determinationOrdered By: Renard Burgos on 05-06-2024 MCHC (RBC) [Mass/Vol] 32.2 g/dL Normal 32-36 [facility] Comment on above: Order Comment: 109-1 Performed By: #### L 100.0100 ####[facility] [address] [place], [address] Mean platelet volume determi nationOrdered By: Renard Burgos on 05-06-2024 Platelet mean volume (Bld) [Entitic vol] 11.4 fL Normal 6.2-12.0 [facility] Comment on above: Order Comment: 109-1 Performed By: #### L 100.0100 ####[facility] [address] [place], [address] Monocyte percentageOrdered B y: Renard Burgos on 05-06-2024 Monocytes/100 WBC (Bld) 9.7 % Normal 0-10 [facility] Comment on above: Order Comment: 109-1 Performed By: #### L 100.0100 ####[facility] [address] [place], [place], [phone] Neutrophil percentageOrdered By: Renard Burgos on 05-06-2024 Neutrophils/100 WBC (Bld) 64.5 % Normal 47-70 [facility] Comment on above: Order Comment: 109-1 Performed By: #### L 100.0100 ####[facility] [address] [place], [address] Nucleated red blood cell per centageOrdered By: Renard Burgos on 05-06-2024 Nucleated RBC/100 WBC (Bld) [Ratio] 0 % 0-5 [facility] Platelet countOrdered By: Garrick Bhatt on 05-06-2024 Platelets (Bld) [#/Vol] 201 10*3/uL Normal 150-450 [facility] Comment on above: Order Comment: 109-1 Performed By: #### L 100.0100 ####[facility] [address] [place], [place], [phone] White blood cell (WBC) count Ordered By: Renard Burgos on 05-06-2024 WBC (Bld) [#/Vol] 9.1 10*3/uL Normal 4.4-11.0 [facility] Comment on above: Order Comment: 109-1 Performed By: #### L 100.0100 ####[facility] [address] [place], [address] 36on 05-03-2024 36 Gissel is calling to let Dr. Burgos know that the medication he prescribed he not certified, she is going to fax the information to the office. [phone] Normal [facility] Absolute neutrophil countOrd ered By: Renard Burgos on 04-29-2024 Neutrophils (Bld) [#/Vol] 6.3 10*3/uL 2.0-7.7 [facility] Basophil percentageOrdered B y: Renard Burgos on 04-29-2024 Basophils/100 WBC (Bld) 0.4 % 0-1 [facility] CBC W/Diff, Automatedon 04-02-2023 Absolute Lymph 2.11 X10 3/uL Normal 0.83-4.51 [facility] Comment on above: Order Comment: 109.1 Performed By: #### L 100.0100 ####[facility] [address] [place], [address] Absolute Neut 6.3 X10 3/uL Normal 2.0-7.7 [facility] Comment on above: Order Comment: 109.1 Performed By: #### L 100.0100 ####[facility] [address] [place], [address] Basophils/100 WBC (Bld) 0.4 % Normal 0-1 [facility] Comment on above: Order Comment: 109.1 Performed By: #### L 100.0100 ####[facility] [address] [place], [address] Eosinophils/100 WBC (Bld) 0.4 % Normal 0-5 [facility] Comment on above: Order Comment: 109.1 Performed By: #### L 100.0100 ####[facility] [address] [place], [address] Erythrocyte distribution width (RBC) [Ratio] 12.6 % Normal 11.6-14.6 [facility] Comment on above: Order Comment: 109.1 Performed By: #### L 100.0100 ####[facility] [address] [place], [address] Hematocrit (Bld) [Volume fraction] 41.6 % Normal 40-54 [facility] Comment on above: Order Comment: 109.1 Performed By: #### L 100.0100 ####[facility] [address] [place], [address] Hemoglobin (Bld) [Mass/Vol] 13.7 g/dL Normal 13.0-16.5 [facility] Comment on above: Order Comment: 109.1 Performed By: #### L 100.0100 ####[facility] [address] [place], [address] IG% 0.400 Normal 0.0-0.9 [facility] Comment on above: Order Comment: 109.1 Result Comment: IG% - Immature Granulocytes (promyelocytes, myelocytes andmetamyelocytes) > 1% indicates that a LEFT SHIFT is Present. Performed By: #### L 100.0100 ####[facility] [address] [place], [address] Lymphocytes/100 WBC (Bld) 22.6 % Normal 19-41 [facility] Comment on above: Order Comment: 109.1 Performed By: #### L 100.0100 ####[facility] [address] [place], [address] MCH (RBC) [Entitic mass] 30.1 pg Normal 27.0-32.0 [facility] Comment on above: Order Comment: 109.1 Performed By: #### L 100.0100 ####[facility] [address] [place], [address] MCHC (RBC) [Mass/Vol] 32.9 g/dL Normal 32-36 [facility] Comment on above: Order Comment: 109.1 Performed By: #### L 100.0100 ####[facility] [address] [place], [address] MCV (RBC) [Entitic vol] 91.4 fL Normal 80-94 [facility] Comment on above: Order Comment: 109.1 Performed By: #### L 100.0100 ####[facility] [address] [place], [address] Monocytes/100 WBC (Bld) 9.3 % Normal 0-10 [facility] Comment on above: Order Comment: 109.1 Performed By: #### L 100.0100 ####[facility] [address] [place], [address] Neutrophils/100 WBC (Bld) 66.9 % Normal 47-70 [facility] Comment on above: Order Comment: 109.1 Performed By: #### L 100.0100 ####[facility] [address] [place], [address] Nucleated RBC (Bld) [#/Vol] 0 10*3/uL Normal 0-5 [facility] Comment on above: Order Comment: 109.1 Performed By: #### L 100.0100 ####[facility] [address] [place], [address] Platelet mean volume (Bld) [Entitic vol] 11.0 fL Normal 6.2-12.0 [facility] Comment on above: Order Comment: 109.1 Performed By: #### L 100.0100 ####[facility] [address] [place], [address] Platelets (Bld) [#/Vol] 211 10*3/uL Normal 150-450 [facility] Comment on above: Order Comment: 109.1 Performed By: #### L 100.0100 ####[facility] [address] [place], [address] RBC (Bld) [#/Vol] 4.55 10*6/uL Low 4.6-6.2 [facility] Comment on above: Order Comment: 109.1 Performed By: #### L 100.0100 ####[facility] [address] [place], [address] RDW SD 41.5 fl Normal 35.1-43.9 [facility] Comment on above: Order Comment: 109.1 Performed By: #### L 100.0100 ####[facility] [address] [place], [address] WBC (Bld) [#/Vol] 9.4 10*3/uL Normal 4.4-11.0 [facility] Comment on above: Order Comment: 109.1 Performed By: #### L 100.0100 ####[facility] [address] [place], [address] Eosinophil percentageOrdered By: Renard Burgos on 04-29-2024 Eosinophils/100 WBC (Bld) 0.4 % 0-5 [facility] Erythrocyte distribution wid th ratioOrdered By: Renard Burgos on 04-29-2024 Erythrocyte distribution width (RBC) [Ratio] 12.6 % 11.6-14.6 [facility] Erythrocyte distribution wid th standard deviationOrdered By: Renard Burgos on 04-29-2024 Erythrocyte distribution width (RBC) [Entitic vol] 41.5 fL 35.1-43.9 [facility] Hematocrit Auto (Bld) [Volum e fraction]Ordered By: Renard Burgos on 04-29-2024 Hematocrit (Bld) [Volume fraction] 41.6 % 40-54 [facility] Hemoglobin measurementOrdere d By: Renard Burgos on 04-29-2024 Hemoglobin (Bld) [Mass/Vol] 13.7 g/dL 13.0-16.5 [facility] Immature granulocytes/100 WB C Auto (Bld)Ordered By: Renard Burgos on 04-29-2024 Immature granulocytes/100 WBC (Bld) 0.400 % 0.0-0.9 [facility] Comment on above: IG% - Immature Granu locytes (promyelocytes, myelocytes and metamyelocytes) > 1% indicates that a LEFT SHIFT is Present. Lymphocytes Auto (Unsp spec) [#/Vol]Ordered By: Renard Burgos on 04-29-2024 Lymphocytes (Bld) [#/Vol] 2.11 10*3/uL 0.83-4.51 [facility] Lymphocytes/100 WBC Auto (Un sp spec)Ordered By: Renard Burgos on 04-29-2024 Lymphocytes/100 WBC (Bld) 22.6 % 19-41 [facility] MCV (mean corpuscular volume ) determinationOrdered By: Renard Burgos on 04-29-2024 MCV (RBC) [Entitic vol] 91.4 fL 80-94 [facility] Mean corpuscular hemoglobin (MCH) determinationOrdered By: Renard Burgos on 04-29-2024 MCH (RBC) [Entitic mass] 30.1 pg 27.0-32.0 [facility] Mean corpuscular hemoglobin concentration (MCHC) determinationOrdered By: Renard Burgos on 04-29-2024 MCHC (RBC) [Mass/Vol] 32.9 g/dL 32-36 [facility] Mean platelet volume determi nationOrdered By: Renard Burgos on 04-29-2024 Platelet mean volume (Bld) [Entitic vol] 11.0 fL 6.2-12.0 [facility] Monocyte percentageOrdered B y: Renard Burgos on 04-29-2024 Monocytes/100 WBC (Bld) 9.3 % 0-10 [facility] Neutrophil percentageOrdered By: Renard Burgos on 04-29-2024 Neutrophils/100 WBC (Bld) 66.9 % 47-70 [facility] Nucleated red blood cell per centageOrdered By: Renard Burgos on 04-29-2024 Nucleated RBC/100 WBC (Bld) [Ratio] 0 % 0-5 [facility] Platelet countOrdered By: Garrick Bhatt on 04-29-2024 Platelets (Bld) [#/Vol] 211 10*3/uL 150-450 [facility] RBC Auto (Bld) [#/Vol]Ordere d By: Renard Burgos on 04-29-2024 RBC (Bld) [#/Vol] 4.55 10*6/uL Low 4.6-6.2 [facility] White blood cell (WBC) count Ordered By: Renard Burgos on 04-29-2024 WBC (Bld) [#/Vol] 9.4 10*3/uL 4.4-11.0 [facility] Absolute neutrophil countOrd ered By: Renard Burgos on 04-22-2024 Neutrophils (Bld) [#/Vol] 8.1 10*3/uL High 2.0-7.7 [facility] Basophil percentageOrdered B y: Renard Burgos on 04-22-2024 Basophils/100 WBC (Bld) 0.5 % 0-1 [facility] CBC W/Diff, Automatedon 04-01 Absolute Lymph 2.61 X10 3/uL Normal 0.83-4.51 [facility] Comment on above: Order Comment: 109-1 Performed By: #### L 100.0100 ####[facility] [address] [facility] [place], [address] Absolute Neut 8.1 X10 3/uL High 2.0-7.7 [facility] Comment on above: Order Comment: 109-1 Performed By: #### L 100.0100 ####[facility] [address] [place], [address] Basophils/100 WBC (Bld) 0.5 % Normal 0-1 [facility] Comment on above: Order Comment: 109-1 Performed By: #### L 100.0100 ####[facility] [address] [place], [address] Eosinophils/100 WBC (Bld) 0.4 % Normal 0-5 [facility] Comment on above: Order Comment: 109-1 Performed By: #### L 100.0100 ####[facility] [address] [place], [address] Erythrocyte distribution width (RBC) [Ratio] 12.6 % Normal 11.6-14.6 [facility] Comment on above: Order Comment: 109-1 Performed By: #### L 100.0100 ####[facility] [address] [place], [address] Hematocrit (Bld) [Volume fraction] 44.5 % Normal 40-54 [facility] Comment on above: Order Comment: 109-1 Performed By: #### L 100.0100 ####[facility] [address] [place], [address] Hemoglobin (Bld) [Mass/Vol] 14.3 g/dL Normal 13.0-16.5 [facility] Comment on above: Order Comment: 109-1 Performed By: #### L 100.0100 ####[facility] [address] [place], [address] IG% 0.300 Normal 0.0-0.9 [facility] Comment on above: Order Comment: 109-1 Result Comment: IG% - Immature Granulocytes (promyelocytes, myelocytes andmetamyelocytes) > 1% indicates that a LEFT SHIFT is Present. Performed By: #### L 100.0100 ####[facility] [address] [place], [address] Lymphocytes/100 WBC (Bld) 22.0 % Normal 19-41 [facility] Comment on above: Order Comment: 109-1 Performed By: #### L 100.0100 ####[facility] [address] [place], [address] MCH (RBC) [Entitic mass] 29.7 pg Normal 27.0-32.0 [facility] Comment on above: Order Comment: 109-1 Performed By: #### L 100.0100 ####[facility] [address] [place], [address] MCHC (RBC) [Mass/Vol] 32.1 g/dL Normal 32-36 [facility] Comment on above: Order Comment: 109-1 Performed By: #### L 100.0100 ####[facility] [address] [place], [address] MCV (RBC) [Entitic vol] 92.5 fL Normal 80-94 [facility] Comment on above: Order Comment: 109-1 Performed By: #### L 100.0100 ####[facility] [address] [place], [address] Monocytes/100 WBC (Bld) 8.3 % Normal 0-10 [facility] Comment on above: Order Comment: 109-1 Performed By: #### L 100.0100 ####[facility] [address] [place], [address] Neutrophils/100 WBC (Bld) 68.5 % Normal 47-70 [facility] Comment on above: Order Comment: 109-1 Performed By: #### L 100.0100 ####[facility] [address] [place], [address] Nucleated RBC (Bld) [#/Vol] 0 10*3/uL Normal 0-5 [facility] Comment on above: Order Comment: 109-1 Performed By: #### L 100.0100 ####[facility] [address] [place], [address] Platelet mean volume (Bld) [Entitic vol] 11.0 fL Normal 6.2-12.0 [facility] Comment on above: Order Comment: 109-1 Performed By: #### L 100.0100 ####[facility] [address] [place], [address] Platelets (Bld) [#/Vol] 190 10*3/uL Normal 150-450 [facility] Comment on above: Order Comment: 109-1 Performed By: #### L 100.0100 ####[facility] [address] [place], [address] RBC (Bld) [#/Vol] 4.81 10*6/uL Normal 4.6-6.2 [facility] Comment on above: Order Comment: 109-1 Performed By: #### L 100.0100 ####[facility] [address] [place], [address] RDW SD 43.0 fl Normal 35.1-43.9 [facility] Comment on above: Order Comment: 109-1 Performed By: #### L 100.0100 ####[facility] [address] [place], [address] WBC (Bld) [#/Vol] 11.9 10*3/uL High 4.4-11.0 [facility] Comment on above: Order Comment: 109-1 Performed By: #### L 100.0100 ####[facility] [address] [place], [address] Eosinophil percentageOrdered By: Renard Burgos on 04-22-2024 Eosinophils/100 WBC (Bld) 0.4 % 0-5 [facility] Erythrocyte distribution wid th ratioOrdered By: Renard Burgos on 04-22-2024 Erythrocyte distribution width (RBC) [Ratio] 12.6 % 11.6-14.6 [facility] Erythrocyte distribution wid th standard deviationOrdered By: Renard Burgos on 04-22-2024 Erythrocyte distribution width (RBC) [Entitic vol] 43.0 fL 35.1-43.9 [facility] Hematocrit Auto (Bld) [Volum e fraction]Ordered By: Renard Burgos on 04-22-2024 Hematocrit (Bld) [Volume fraction] 44.5 % 40-54 [facility] Hemoglobin measurementOrdere d By: Renard Burgos on 04-22-2024 Hemoglobin (Bld) [Mass/Vol] 14.3 g/dL 13.0-16.5 [facility] Immature granulocytes/100 WB C Auto (Bld)Ordered By: Renard Burgos on 04-22-2024 Immature granulocytes/100 WBC (Bld) 0.300 % 0.0-0.9 [facility] Comment on above: IG% - Immature Granu locytes (promyelocytes, myelocytes and metamyelocytes) > 1% indicates that a LEFT SHIFT is Present. Lymphocytes Auto (Unsp spec) [#/Vol]Ordered By: Renard Burgos on 04-22-2024 Lymphocytes (Bld) [#/Vol] 2.61 10*3/uL 0.83-4.51 [facility] Lymphocytes/100 WBC Auto (Un sp spec)Ordered By: Renard Burgos on 04-22-2024 Lymphocytes/100 WBC (Bld) 22.0 % 19-41 [facility] MCV (mean corpuscular volume ) determinationOrdered By: Renard Burgos on 04-22-2024 MCV (RBC) [Entitic vol] 92.5 fL 80-94 [facility] Mean corpuscular hemoglobin (MCH) determinationOrdered By: Renard Burgos on 04-22-2024 MCH (RBC) [Entitic mass] 29.7 pg 27.0-32.0 [facility] Mean corpuscular hemoglobin concentration (MCHC) determinationOrdered By: Renard Burgos on 04-22-2024 MCHC (RBC) [Mass/Vol] 32.1 g/dL 32-36 [facility] Mean platelet volume determi nationOrdered By: Renard Burgos on 04-22-2024 Platelet mean volume (Bld) [Entitic vol] 11.0 fL 6.2-12.0 [facility] Monocyte percentageOrdered B y: Renard Burgos on 04-22-2024 Monocytes/100 WBC (Bld) 8.3 % 0-10 [facility] Neutrophil percentageOrdered By: Renard Burgos on 04-22-2024 Neutrophils/100 WBC (Bld) 68.5 % 47-70 [facility] Nucleated red blood cell per centageOrdered By: Renard Burgos on 04-22-2024 Nucleated RBC/100 WBC (Bld) [Ratio] 0 % 0-5 [facility] Platelet countOrdered By: Garrick Bhatt on 04-22-2024 Platelets (Bld) [#/Vol] 190 10*3/uL 150-450 [facility] RBC Auto (Bld) [#/Vol]Ordere d By: Renard Burgos on 04-22-2024 RBC (Bld) [#/Vol] 4.81 10*6/uL 4.6-6.2 [facility] White blood cell (WBC) count Ordered By: Renard Burgos on 04-22-2024 WBC (Bld) [#/Vol] 11.9 10*3/uL High 4.4-11.0 [facility] Absolute neutrophil countOrd ered By: Renard Burgos on 04-15-2024 Neutrophils (Bld) [#/Vol] 8.7 10*3/uL High 2.0-7.7 [facility] Basophil percentageOrdered B y: Renard Burgos on 04-15-2024 Basophils/100 WBC (Bld) 0.3 % 0-1 [facility] Bilirubin, totalOrdered By: Renard Burgos on 04-15-2024 Bilirubin [Mass/Vol] 0.30 mg/dL 0.20-1.00 [facility] Comment on above: For patients on eltr ombopag therapy, use of Dimension [place] TBIL is not recommended. Bilirubin.direct [Mass/Vol]O rdered By: Renard Burgos on 04-15-2024 Direct Bilirubin < 0.05 mg/dL 0.00-0.30 [facility] CBC W/Diff, Automatedon 03-31 Absolute Lymph 1.93 X10 3/uL Normal 0.83-4.51 [facility] Comment on above: Order Comment: 109-1 Performed By: #### L 100.0100, L500.3400 ####[facility] [address] [place], [place], [id number] Absolute Neut 8.7 X10 3/uL High 2.0-7.7 [facility] Comment on above: Order Comment: 109-1 Performed By: #### L 100.0100, L500.3400 ####[facility] [address] [place], [address] Basophils/100 WBC (Bld) 0.3 % Normal 0-1 [facility] Comment on above: Order Comment: 109-1 Performed By: #### L 100.0100, L500.3400 ####[facility] [address] [place], [address] Eosinophils/100 WBC (Bld) 0.4 % Normal 0-5 [facility] Comment on above: Order Comment: 109-1 Performed By: #### L 100.0100, L500.3400 ####[facility] [address] [place], [address] Erythrocyte distribution width (RBC) [Ratio] 12.8 % Normal 11.6-14.6 [facility] Comment on above: Order Comment: 109-1 Performed By: #### L 100.0100, L500.3400 ####[facility] [address] [place], [address] Hematocrit (Bld) [Volume fraction] 42.5 % Normal 40-54 [facility] Comment on above: Order Comment: 109-1 Performed By: #### L 100.0100, L500.3400 ####[facility] [address] [place], [address] Hemoglobin (Bld) [Mass/Vol] 13.7 g/dL Normal 13.0-16.5 [facility] Comment on above: Order Comment: 109-1 Performed By: #### L 100.0100, L500.3400 ####[facility] [address] [place], [address] IG% 0.400 Normal 0.0-0.9 [facility] Comment on above: Order Comment: 109-1 Result Comment: IG% - Immature Granulocytes (promyelocytes, myelocytes andmetamyelocytes) > 1% indicates that a LEFT SHIFT is Present. Performed By: #### L 100.0100, L500.3400 ####[facility] [address] [place], [address] Lymphocytes/100 WBC (Bld) 16.9 % Low 19-41 [facility] Comment on above: Order Comment: 109-1 Performed By: #### L 100.0100, L500.3400 ####[facility] [address] [place], [address] MCH (RBC) [Entitic mass] 29.5 pg Normal 27.0-32.0 [facility] Comment on above: Order Comment: 109-1 Performed By: #### L 100.0100, L500.3400 ####[facility] [address] [place], [address] MCHC (RBC) [Mass/Vol] 32.2 g/dL Normal 32-36 [facility] Comment on above: Order Comment: 109-1 Performed By: #### L 100.0100, L500.3400 ####[facility] [address] [place], [address] MCV (RBC) [Entitic vol] 91.6 fL Normal 80-94 [facility] Comment on above: Order Comment: 109-1 Performed By: #### L 100.0100, L500.3400 ####[facility] [address] [place], [address] Monocytes/100 WBC (Bld) 6.0 % Normal 0-10 [facility] Comment on above: Order Comment: 109-1 Performed By: #### L 100.0100, L500.3400 ####[facility] [address] [place], [address] Neutrophils/100 WBC (Bld) 76.0 % High 47-70 [facility] Comment on above: Order Comment: 109-1 Performed By: #### L 100.0100, L500.3400 ####[facility] [address] [place], [address] Nucleated RBC (Bld) [#/Vol] 0 10*3/uL Normal 0-5 [facility] Comment on above: Order Comment: 109-1 Performed By: #### L 100.0100, L500.3400 ####[facility] [address] [place], [address] Platelet mean volume (Bld) [Entitic vol] 11.1 fL Normal 6.2-12.0 [facility] Comment on above: Order Comment: 109-1 Performed By: #### L 100.0100, L500.3400 ####[facility] [address] [place], [address] Platelets (Bld) [#/Vol] 197 10*3/uL Normal 150-450 [facility] Comment on above: Order Comment: 109-1 Performed By: #### L 100.0100, L500.3400 ####[facility] [address] [place], [address] RBC (Bld) [#/Vol] 4.64 10*6/uL Normal 4.6-6.2 [facility] Comment on above: Order Comment: 109-1 Performed By: #### L 100.0100, L500.3400 ####[facility] [address] [place], [address] RDW SD 42.5 fl Normal 35.1-43.9 [facility] Comment on above: Order Comment: 109-1 Performed By: #### L 100.0100, L500.3400 ####[facility] [address] [place], [address] WBC (Bld) [#/Vol] 11.4 10*3/uL High 4.4-11.0 [facility] Comment on above: Order Comment: 109-1 Performed By: #### L 100.0100, L500.3400 ####[facility] [address] [place], [address] Eosinophil percentageOrdered By: Renard Burgos on 04-15-2024 Eosinophils/100 WBC (Bld) 0.4 % 0-5 [facility] Erythrocyte distribution wid th ratioOrdered By: Renard Burgos on 04-15-2024 Erythrocyte distribution width (RBC) [Ratio] 12.8 % 11.6-14.6 [facility] Erythrocyte distribution wid th standard deviationOrdered By: Renard Burgos on 04-15-2024 Erythrocyte distribution width (RBC) [Entitic vol] 42.5 fL 35.1-43.9 [facility] Hematocrit Auto (Bld) [Volum e fraction]Ordered By: Renard Burgos on 04-15-2024 Hematocrit (Bld) [Volume fraction] 42.5 % 40-54 [facility] Hemoglobin measurementOrdere d By: Renard Burgos on 04-15-2024 Hemoglobin (Bld) [Mass/Vol] 13.7 g/dL 13.0-16.5 [facility] Immature granulocytes/100 WB C Auto (Bld)Ordered By: Renard Burgos on 04-15-2024 Immature granulocytes/100 WBC (Bld) 0.400 % 0.0-0.9 [facility] Comment on above: IG% - Immature Granu locytes (promyelocytes, myelocytes and metamyelocytes) > 1% indicates that a LEFT SHIFT is Present. Laboratory - Chemistry and C hemistry - challengeOrdered By: Renard Burgos on 04-15-2024 AST [Catalytic activity/Vol] 18 U/L 15-37 [facility] Comment on above: Slight Hemolysis, Re sult may be falsely increased. Liver Profileon 04-15-2024 Albumin [Mass/Vol] 2.9 g/dL Low 3.2-5.0 [facility] Comment on above: Order Comment: 109-1 Performed By: #### L 100.0100, L500.3400 ####[facility] [address] [place], [address] ALK P 126 U/L High 45-117 [facility] Comment on above: Order Comment: 109-1 Performed By: #### L 100.0100, L500.3400 ####[facility] [address] [place], [address] ALT [Catalytic activity/Vol] 21 U/L Normal 16-61 [facility] Comment on above: Order Comment: 109-1 Performed By: #### L 100.0100, L500.3400 ####[facility] [address] [place], [address] AST [Catalytic activity/Vol] 18 U/L Normal 15-37 [facility] Comment on above: Order Comment: 109-1 Result Comment: Slig ht Hemolysis, Result may be falsely increased. Performed By: #### L 100.0100, L500.3400 ####[facility] [address] [place], [address] Bilirubin [Mass/Vol] 0.30 mg/dL Normal 0.20-1.00 [facility] Comment on above: Order Comment: 109-1 Result Comment: For patients on eltrombopag therapy, use of Dimension [place] TBIL is not recommended. Performed By: #### L 100.0100, L500.3400 ####[facility] [address] [place], [address] D BILI < 0.05 Normal 0.00-0.30 [facility] Comment on above: Order Comment: 109-1 Performed By: #### L 100.0100, L500.3400 ####[facility] [address] [place], [address] Globulin (S) [Mass/Vol] 3.0 g/dL Normal 2.2-4.2 [facility] Comment on above: Order Comment: 109-1 Performed By: #### L 100.0100, L500.3400 ####[facility] [address] [place], [place], [address] T PROT 5.9 g/dL Low 6.4-8.2 [facility] Comment on above: Order Comment: 109-1 Performed By: #### L 100.0100, L500.3400 ####[facility] [address] [place], [place], [address] Lymphocytes Auto (Unsp spec) [#/Vol]Ordered By: Renard Burgos on 04-15-2024 Lymphocytes (Bld) [#/Vol] 1.93 10*3/uL 0.83-4.51 [facility] Lymphocytes/100 WBC Auto (Un sp spec)Ordered By: Renard Burgos on 04-15-2024 Lymphocytes/100 WBC (Bld) 16.9 % Low 19-41 [facility] MCV (mean corpuscular volume ) determinationOrdered By: Renard Burgos on 04-15-2024 MCV (RBC) [Entitic vol] 91.6 fL 80-94 [facility] Mean corpuscular hemoglobin (MCH) determinationOrdered By: Renard Burgos on 04-15-2024 MCH (RBC) [Entitic mass] 29.5 pg 27.0-32.0 [facility] Mean corpuscular hemoglobin concentration (MCHC) determinationOrdered By: Renard Burgos on 04-15-2024 MCHC (RBC) [Mass/Vol] 32.2 g/dL 32-36 [facility] Mean platelet volume determi nationOrdered By: Renard Burgos on 04-15-2024 Platelet mean volume (Bld) [Entitic vol] 11.1 fL 6.2-12.0 [facility] Monocyte percentageOrdered B y: Renard Burgos on 04-15-2024 Monocytes/100 WBC (Bld) 6.0 % 0-10 [facility] Neutrophil percentageOrdered By: Renard Burgos on 04-15-2024 Neutrophils/100 WBC (Bld) 76.0 % High 47-70 [facility] Nucleated red blood cell per centageOrdered By: Renard Burgos on 04-15-2024 Nucleated RBC/100 WBC (Bld) [Ratio] 0 % 0-5 [facility] Platelet countOrdered By: Garrick Bhatt on 04-15-2024 Platelets (Bld) [#/Vol] 197 10*3/uL 150-450 [facility] RBC Auto (Bld) [#/Vol]Ordere d By: Renard Burgos on 04-15-2024 RBC (Bld) [#/Vol] 4.64 10*6/uL 4.6-6.2 [facility] Serum globulin measurementOr dered By: Renard Burgos on 04-15-2024 Globulin (S) [Mass/Vol] 3.0 g/dL 2.2-4.2 [facility] Serum or plasma alanine kay otransferase (ALT) measurementOrdered By: Renard Burgos on 04-15-2024 ALT [Catalytic activity/Vol] 21 U/L 16-61 [facility] Serum or plasma albumin gordy urement (mass/volume)Ordered By: Renard Burgos on 04-15-2024 Albumin [Mass/Vol] 2.9 g/dL Low 3.2-5.0 [facility] Serum or plasma alkaline trace sphatase measurementOrdered By: Renard Burgos on 04-15-2024 ALP [Catalytic activity/Vol] 126 U/L High 45-117 [facility] Total proteinOrdered By: Lyubov Burgos on 04-15-2024 Protein [Mass/Vol] 5.9 g/dL Low 6.4-8.2 [facility] White blood cell (WBC) count Ordered By: Renard Burgos on 04-15-2024 WBC (Bld) [#/Vol] 11.4 10*3/uL High 4.4-11.0 [facility] Absolute neutrophil countOrd ered By: Renard Burgos on 04-08-2024 Neutrophils (Bld) [#/Vol] 5.7 10*3/uL 2.0-7.7 [facility] Basophil percentageOrdered B y: Renard Burgos on 04-08-2024 Basophils/100 WBC (Bld) 0.6 % 0-1 [facility] CBC W/Diff, Automatedon 12 Absolute Lymph 2.27 X10 3/uL Normal 0.83-4.51 [facility] Comment on above: Order Comment: 109.1 Performed By: #### L 100.0100 ####[facility] [address] [place], [address] Absolute Neut 5.7 X10 3/uL Normal 2.0-7.7 [facility] Comment on above: Order Comment: 109.1 Performed By: #### L 100.0100 ####[facility] [address] [place], [address] Basophils/100 WBC (Bld) 0.6 % Normal 0-1 [facility] Comment on above: Order Comment: 109.1 Performed By: #### L 100.0100 ####[facility] [address] [place], [address] Eosinophils/100 WBC (Bld) 0.5 % Normal 0-5 [facility] Comment on above: Order Comment: 109.1 Performed By: #### L 100.0100 ####[facility] [address] [place], [address] Erythrocyte distribution width (RBC) [Ratio] 12.6 % Normal 11.6-14.6 [facility] Comment on above: Order Comment: 109.1 Performed By: #### L 100.0100 ####[facility] [address] [place], [address] Hematocrit (Bld) [Volume fraction] 41.2 % Normal 40-54 [facility] Comment on above: Order Comment: 109.1 Performed By: #### L 100.0100 ####[facility] [address] [place], [address] Hemoglobin (Bld) [Mass/Vol] 13.3 g/dL Normal 13.0-16.5 [facility] Comment on above: Order Comment: 109.1 Performed By: #### L 100.0100 ####[facility] [address] [place], [address] IG% 0.200 Normal 0.0-0.9 [facility] Comment on above: Order Comment: 109.1 Result Comment: IG% - Immature Granulocytes (promyelocytes, myelocytes andmetamyelocytes) > 1% indicates that a LEFT SHIFT is Present. Performed By: #### L 100.0100 ####[facility] [address] [place], [address] Lymphocytes/100 WBC (Bld) 26.0 % Normal 19-41 [facility] Comment on above: Order Comment: 109.1 Performed By: #### L 100.0100 ####[facility] [address] [place], [address] MCH (RBC) [Entitic mass] 29.6 pg Normal 27.0-32.0 [facility] Comment on above: Order Comment: 109.1 Performed By: #### L 100.0100 ####[facility] [address] [place], [address] MCHC (RBC) [Mass/Vol] 32.3 g/dL Normal 32-36 [facility] Comment on above: Order Comment: 109.1 Performed By: #### L 100.0100 ####[facility] [address] [place], [address] MCV (RBC) [Entitic vol] 91.8 fL Normal 80-94 [facility] Comment on above: Order Comment: 109.1 Performed By: #### L 100.0100 ####[facility] [address] [place], [address] Monocytes/100 WBC (Bld) 7.8 % Normal 0-10 [facility] Comment on above: Order Comment: 109.1 Performed By: #### L 100.0100 ####[facility] [address] [place], [address] Neutrophils/100 WBC (Bld) 64.9 % Normal 47-70 [facility] Comment on above: Order Comment: 109.1 Performed By: #### L 100.0100 ####[facility] [address] [place], [address] Nucleated RBC (Bld) [#/Vol] 0 10*3/uL Normal 0-5 [facility] Comment on above: Order Comment: 109.1 Performed By: #### L 100.0100 ####[facility] [address] [place], [address] Platelet mean volume (Bld) [Entitic vol] 10.8 fL Normal 6.2-12.0 [facility] Comment on above: Order Comment: 109.1 Performed By: #### L 100.0100 ####[facility] [address] [place], [address] Platelets (Bld) [#/Vol] 208 10*3/uL Normal 150-450 [facility] Comment on above: Order Comment: 109.1 Performed By: #### L 100.0100 ####[facility] [address] [place], [address] RBC (Bld) [#/Vol] 4.49 10*6/uL Low 4.6-6.2 [facility] Comment on above: Order Comment: 109.1 Performed By: #### L 100.0100 ####[facility] [address] [place], [address] RDW SD 42.4 fl Normal 35.1-43.9 [facility] Comment on above: Order Comment: 109.1 Performed By: #### L 100.0100 ####[facility] [address] [place], [address] WBC (Bld) [#/Vol] 8.7 10*3/uL Normal 4.4-11.0 [facility] Comment on above: Order Comment: 109.1 Performed By: #### L 100.0100 ####[facility] [address] [place], [address] Eosinophil percentageOrdered By: Renard Burgos on 04-08-2024 Eosinophils/100 WBC (Bld) 0.5 % 0-5 [facility] Erythrocyte distribution wid th ratioOrdered By: Renard Burgos on 04-08-2024 Erythrocyte distribution width (RBC) [Ratio] 12.6 % 11.6-14.6 [facility] Erythrocyte distribution wid th standard deviationOrdered By: Renard Burgos on 04-08-2024 Erythrocyte distribution width (RBC) [Entitic vol] 42.4 fL 35.1-43.9 [facility] Hematocrit Auto (Bld) [Volum e fraction]Ordered By: Renard Burgos on 04-08-2024 Hematocrit (Bld) [Volume fraction] 41.2 % 40-54 [facility] Hemoglobin measurementOrdere d By: Renard Burgos on 04-08-2024 Hemoglobin (Bld) [Mass/Vol] 13.3 g/dL 13.0-16.5 [facility] Immature granulocytes/100 WB C Auto (Bld)Ordered By: Renard Burgos on 04-08-2024 Immature granulocytes/100 WBC (Bld) 0.200 % 0.0-0.9 [facility] Comment on above: IG% - Immature Granu locytes (promyelocytes, myelocytes and metamyelocytes) > 1% indicates that a LEFT SHIFT is Present. Lymphocytes Auto (Unsp spec) [#/Vol]Ordered By: Renard Burgos on 04-08-2024 Lymphocytes (Bld) [#/Vol] 2.27 10*3/uL 0.83-4.51 [facility] Lymphocytes/100 WBC Auto (Un sp spec)Ordered By: Renard Burgos on 04-08-2024 Lymphocytes/100 WBC (Bld) 26.0 % 19-41 [facility] MCV (mean corpuscular volume ) determinationOrdered By: Renard Burgos on 04-08-2024 MCV (RBC) [Entitic vol] 91.8 fL 80-94 [facility] Mean corpuscular hemoglobin (MCH) determinationOrdered By: Renard Burgos on 04-08-2024 MCH (RBC) [Entitic mass] 29.6 pg 27.0-32.0 [facility] Mean corpuscular hemoglobin concentration (MCHC) determinationOrdered By: Renard Burgos on 04-08-2024 MCHC (RBC) [Mass/Vol] 32.3 g/dL 32-36 [facility] Mean platelet volume determi nationOrdered By: Renard Burgos on 04-08-2024 Platelet mean volume (Bld) [Entitic vol] 10.8 fL 6.2-12.0 [facility] Monocyte percentageOrdered B y: Renard Burgos on 04-08-2024 Monocytes/100 WBC (Bld) 7.8 % 0-10 [facility] Neutrophil percentageOrdered By: Renard Burgos on 04-08-2024 Neutrophils/100 WBC (Bld) 64.9 % 47-70 [facility] Nucleated red blood cell per centageOrdered By: Renard Burgos on 04-08-2024 Nucleated RBC/100 WBC (Bld) [Ratio] 0 % 0-5 [facility] Platelet countOrdered By: Garrick Bhatt on 04-08-2024 Platelets (Bld) [#/Vol] 208 10*3/uL 150-450 [facility] RBC Auto (Bld) [#/Vol]Ordere d By: Renard Burgos on 04-08-2024 RBC (Bld) [#/Vol] 4.49 10*6/uL Low 4.6-6.2 [facility] White blood cell (WBC) count Ordered By: Renard Burgos on 04-08-2024 WBC (Bld) [#/Vol] 8.7 10*3/uL 4.4-11.0 [facility] Absolute neutrophil countOrd ered By: Renard Burgos on 04-01-2024 Neutrophils (Bld) [#/Vol] 7.1 10*3/uL 2.0-7.7 [facility] Basophil percentageOrdered B y: Renard Burgos on 04-01-2024 Basophils/100 WBC (Bld) 0.4 % 0-1 [facility] CBC W/Diff, Automatedon 12-0 2-2023 Absolute Lymph 1.97 X10 3/uL Normal 0.83-4.51 [facility] Comment on above: Order Comment: 109-1 Performed By: #### L 100.0100 ####[facility] [address] [place], [address] Absolute Neut 7.1 X10 3/uL Normal 2.0-7.7 [facility] Comment on above: Order Comment: 109-1 Performed By: #### L 100.0100 ####[facility] [facility] [address] [place], [address] Basophils/100 WBC (Bld) 0.4 % Normal 0-1 [facility] Comment on above: Order Comment: 109-1 Performed By: #### L 100.0100 ####[facility] [address] [place], [address] Eosinophils/100 WBC (Bld) 0.4 % Normal 0-5 [facility] Comment on above: Order Comment: 109-1 Performed By: #### L 100.0100 ####[facility] [address] [place], [address] Erythrocyte distribution width (RBC) [Ratio] 12.6 % Normal 11.6-14.6 [facility] Comment on above: Order Comment: 109-1 Performed By: #### L 100.0100 ####[facility] [address] [place], [address] Hematocrit (Bld) [Volume fraction] 41.7 % Normal 40-54 [facility] Comment on above: Order Comment: 109-1 Performed By: #### L 100.0100 ####[facility] [address] [place], [address] Hemoglobin (Bld) [Mass/Vol] 13.6 g/dL Normal 13.0-16.5 [facility] Comment on above: Order Comment: 109-1 Performed By: #### L 100.0100 ####[facility] [address] [place], [address] IG% 0.300 Normal 0.0-0.9 [facility] Comment on above: Order Comment: 109-1 Result Comment: IG% - Immature Granulocytes (promyelocytes, myelocytes andmetamyelocytes) > 1% indicates that a LEFT SHIFT is Present. Performed By: #### L 100.0100 ####[facility] [address] [place], [address] Lymphocytes/100 WBC (Bld) 20.0 % Normal 19-41 [facility] Comment on above: Order Comment: 109-1 Performed By: #### L 100.0100 ####[facility] [address] [place], [address] MCH (RBC) [Entitic mass] 29.7 pg Normal 27.0-32.0 [facility] Comment on above: Order Comment: 109-1 Performed By: #### L 100.0100 ####[facility] [address] [place], [address] MCHC (RBC) [Mass/Vol] 32.6 g/dL Normal 32-36 [facility] Comment on above: Order Comment: 109-1 Performed By: #### L 100.0100 ####[facility] [address] [place], [address] MCV (RBC) [Entitic vol] 91.0 fL Normal 80-94 [facility] Comment on above: Order Comment: 109-1 Performed By: #### L 100.0100 ####[facility] [address] [place], [address] Monocytes/100 WBC (Bld) 7.1 % Normal 0-10 [facility] Comment on above: Order Comment: 109-1 Performed By: #### L 100.0100 ####[facility] [address] [place], [address] Neutrophils/100 WBC (Bld) 71.8 % High 47-70 [facility] Comment on above: Order Comment: 109-1 Performed By: #### L 100.0100 ####[facility] [address] [place], [address] Nucleated RBC (Bld) [#/Vol] 0 10*3/uL Normal 0-5 [facility] Comment on above: Order Comment: 109-1 Performed By: #### L 100.0100 ####[facility] [address] [place], [address] Platelet mean volume (Bld) [Entitic vol] 11.3 fL Normal 6.2-12.0 [facility] Comment on above: Order Comment: 109-1 Performed By: #### L 100.0100 ####[facility] [address] [place], [address] Platelets (Bld) [#/Vol] 195 10*3/uL Normal 150-450 [facility] Comment on above: Order Comment: 109-1 Performed By: #### L 100.0100 ####[facility] [address] [place], [address] RBC (Bld) [#/Vol] 4.58 10*6/uL Low 4.6-6.2 [facility] Comment on above: Order Comment: 109-1 Performed By: #### L 100.0100 ####[facility] [address] [place], [address] RDW SD 41.2 fl Normal 35.1-43.9 [facility] Comment on above: Order Comment: 109-1 Performed By: #### L 100.0100 ####[facility] [address] [place], [address] WBC (Bld) [#/Vol] 9.8 10*3/uL Normal 4.4-11.0 [facility] Comment on above: Order Comment: 109-1 Performed By: #### L 100.0100 ####[facility] [address] [place], [address] Eosinophil percentageOrdered By: Renard Burgos on 04-01-2024 Eosinophils/100 WBC (Bld) 0.4 % 0-5 [facility] Erythrocyte distribution wid th ratioOrdered By: Renard Burgos on 04-01-2024 Erythrocyte distribution width (RBC) [Ratio] 12.6 % 11.6-14.6 [facility] Erythrocyte distribution wid th standard deviationOrdered By: Renard Burgos on 04-01-2024 Erythrocyte distribution width (RBC) [Entitic vol] 41.2 fL 35.1-43.9 [facility] Hematocrit Auto (Bld) [Volum e fraction]Ordered By: Renard Burgos on 04-01-2024 Hematocrit (Bld) [Volume fraction] 41.7 % 40-54 [facility] Hemoglobin measurementOrdere d By: Renard Burgos on 04-01-2024 Hemoglobin (Bld) [Mass/Vol] 13.6 g/dL 13.0-16.5 [facility] Immature granulocytes/100 WB C Auto (Bld)Ordered By: Renard Burgos on 04-01-2024 Immature granulocytes/100 WBC (Bld) 0.300 % 0.0-0.9 [facility] Comment on above: IG% - Immature Granu locytes (promyelocytes, myelocytes and metamyelocytes) > 1% indicates that a LEFT SHIFT is Present. Lymphocytes Auto (Unsp spec) [#/Vol]Ordered By: Renard Burgos on 04-01-2024 Lymphocytes (Bld) [#/Vol] 1.97 10*3/uL 0.83-4.51 [facility] Lymphocytes/100 WBC Auto (Un sp spec)Ordered By: Renard Burgos on 04-01-2024 Lymphocytes/100 WBC (Bld) 20.0 % 19-41 [facility] MCV (mean corpuscular volume ) determinationOrdered By: Renard Burgos on 04-01-2024 MCV (RBC) [Entitic vol] 91.0 fL 80-94 [facility] Mean corpuscular hemoglobin (MCH) determinationOrdered By: Renard Burgos on 04-01-2024 MCH (RBC) [Entitic mass] 29.7 pg 27.0-32.0 [facility] Mean corpuscular hemoglobin concentration (MCHC) determinationOrdered By: Renard Burgos on 04-01-2024 MCHC (RBC) [Mass/Vol] 32.6 g/dL 32-36 [facility] Mean platelet volume determi nationOrdered By: Renard Burgos on 04-01-2024 Platelet mean volume (Bld) [Entitic vol] 11.3 fL 6.2-12.0 [facility] Monocyte percentageOrdered B y: Renard Burgos on 04-01-2024 Monocytes/100 WBC (Bld) 7.1 % 0-10 [facility] Neutrophil percentageOrdered By: Renard Burgos on 04-01-2024 Neutrophils/100 WBC (Bld) 71.8 % High 47-70 [facility] Nucleated red blood cell per centageOrdered By: Renard Burgos on 04-01-2024 Nucleated RBC/100 WBC (Bld) [Ratio] 0 % 0-5 [facility] Platelet countOrdered By: Garrick Bhatt on 04-01-2024 Platelets (Bld) [#/Vol] 195 10*3/uL 150-450 [facility] RBC Auto (Bld) [#/Vol]Ordere d By: Renard Burgos on 04-01-2024 RBC (Bld) [#/Vol] 4.58 10*6/uL Low 4.6-6.2 [facility] White blood cell (WBC) count Ordered By: Renard Burgos on 04-01-2024 WBC (Bld) [#/Vol] 9.8 10*3/uL 4.4-11.0 [facility] Absolute neutrophil countOrd ered By: Renard Burgos on 03-25-2024 Neutrophils (Bld) [#/Vol] 5.4 10*3/uL 2.0-7.7 [facility] Basophil percentageOrdered B y: Renard Burgos on 03-25-2024 Basophils/100 WBC (Bld) 0.5 % 0-1 [facility] CBC W/Diff, Automatedon 11-2 -2023 Absolute Lymph 2.14 X10 3/uL Normal 0.83-4.51 [facility] Comment on above: Order Comment: 109-1 Performed By: #### L 100.0100 ####[facility] [address] [place], [address] Absolute Neut 5.4 X10 3/uL Normal 2.0-7.7 [facility] Comment on above: Order Comment: 109-1 Performed By: #### L 100.0100 ####[facility] [address] [place], [address] Basophils/100 WBC (Bld) 0.5 % Normal 0-1 [facility] Comment on above: Order Comment: 109-1 Performed By: #### L 100.0100 ####[facility] [address] [place], [address] Eosinophils/100 WBC (Bld) 0.7 % Normal 0-5 [facility] Comment on above: Order Comment: 109-1 Performed By: #### L 100.0100 ####[facility] [address] [place], [address] Erythrocyte distribution width (RBC) [Ratio] 12.7 % Normal 11.6-14.6 [facility] Comment on above: Order Comment: 109-1 Performed By: #### L 100.0100 ####[facility] [address] [place], [address] Hematocrit (Bld) [Volume fraction] 42.3 % Normal 40-54 [facility] Comment on above: Order Comment: 109-1 Performed By: #### L 100.0100 ####[facility] [address] [place], [address] Hemoglobin (Bld) [Mass/Vol] 13.7 g/dL Normal 13.0-16.5 [facility] Comment on above: Order Comment: 109-1 Performed By: #### L 100.0100 ####[facility] [address] [place], [address] IG% 0.500 Normal 0.0-0.9 [facility] Comment on above: Order Comment: 109-1 Result Comment: IG% - Immature Granulocytes (promyelocytes, myelocytes andmetamyelocytes) > 1% indicates that a LEFT SHIFT is Present. Performed By: #### L 100.0100 ####[facility] [address] [place], [address] Lymphocytes/100 WBC (Bld) 25.8 % Normal 19-41 [facility] Comment on above: Order Comment: 109-1 Performed By: #### L 100.0100 ####[facility] [address] [place], [address] MCH (RBC) [Entitic mass] 29.2 pg Normal 27.0-32.0 [facility] Comment on above: Order Comment: 109-1 Performed By: #### L 100.0100 ####[facility] [address] [place], [address] MCHC (RBC) [Mass/Vol] 32.4 g/dL Normal 32-36 [facility] Comment on above: Order Comment: 109-1 Performed By: #### L 100.0100 ####[facility] [address] [place], [address] MCV (RBC) [Entitic vol] 90.2 fL Normal 80-94 [facility] Comment on above: Order Comment: 109-1 Performed By: #### L 100.0100 ####[facility] [address] [place], [address] Monocytes/100 WBC (Bld) 8.0 % Normal 0-10 [facility] Comment on above: Order Comment: 109-1 Performed By: #### L 100.0100 ####[facility] [address] [place], [address] Neutrophils/100 WBC (Bld) 64.5 % Normal 47-70 [facility] Comment on above: Order Comment: 109-1 Performed By: #### L 100.0100 ####[facility] [address] [place], [address] Nucleated RBC (Bld) [#/Vol] 0 10*3/uL Normal 0-5 [facility] Comment on above: Order Comment: 109-1 Performed By: #### L 100.0100 ####[facility] [address] [place], [address] Platelet mean volume (Bld) [Entitic vol] 11.2 fL Normal 6.2-12.0 [facility] Comment on above: Order Comment: 109-1 Performed By: #### L 100.0100 ####[facility] [address] [place], [address] Platelets (Bld) [#/Vol] 204 10*3/uL Normal 150-450 [facility] Comment on above: Order Comment: 109-1 Performed By: #### L 100.0100 ####[facility] [address] [place], [address] RBC (Bld) [#/Vol] 4.69 10*6/uL Normal 4.6-6.2 [facility] Comment on above: Order Comment: 109-1 Performed By: #### L 100.0100 ####[facility] [address] [place], [address] RDW SD 41.8 fl Normal 35.1-43.9 [facility] Comment on above: Order Comment: 109-1 Performed By: #### L 100.0100 ####[facility] [address] [place], [address] WBC (Bld) [#/Vol] 8.3 10*3/uL Normal 4.4-11.0 [facility] Comment on above: Order Comment: 109-1 Performed By: #### L 100.0100 ####[facility] [address] [place], [address] Eosinophil percentageOrdered By: Renard Burgos on 03-25-2024 Eosinophils/100 WBC (Bld) 0.7 % 0-5 [facility] Erythrocyte distribution wid th ratioOrdered By: Renard Burgos on 03-25-2024 Erythrocyte distribution width (RBC) [Ratio] 12.7 % 11.6-14.6 [facility] Erythrocyte distribution wid th standard deviationOrdered By: Renard Burgos on 03-25-2024 Erythrocyte distribution width (RBC) [Entitic vol] 41.8 fL 35.1-43.9 [facility] Hematocrit Auto (Bld) [Volum e fraction]Ordered By: Renard Burgos on 03-25-2024 Hematocrit (Bld) [Volume fraction] 42.3 % 40-54 [facility] Hemoglobin measurementOrdere d By: Renard Burgos on 03-25-2024 Hemoglobin (Bld) [Mass/Vol] 13.7 g/dL 13.0-16.5 [facility] Immature granulocytes/100 WB C Auto (Bld)Ordered By: Renard Burgos on 03-25-2024 Immature granulocytes/100 WBC (Bld) 0.500 % 0.0-0.9 [facility] Comment on above: IG% - Immature Granu locytes (promyelocytes, myelocytes and metamyelocytes) > 1% indicates that a LEFT SHIFT is Present. Lymphocytes Auto (Unsp spec) [#/Vol]Ordered By: Renard Burgos on 03-25-2024 Lymphocytes (Bld) [#/Vol] 2.14 10*3/uL 0.83-4.51 [facility] Lymphocytes/100 WBC Auto (Un sp spec)Ordered By: Renard Burgos on 03-25-2024 Lymphocytes/100 WBC (Bld) 25.8 % 19-41 [facility] MCV (mean corpuscular volume ) determinationOrdered By: Renard Burgos on 03-25-2024 MCV (RBC) [Entitic vol] 90.2 fL 80-94 [facility] Mean corpuscular hemoglobin (MCH) determinationOrdered By: Renard Burgos on 03-25-2024 MCH (RBC) [Entitic mass] 29.2 pg 27.0-32.0 [facility] Mean corpuscular hemoglobin concentration (MCHC) determinationOrdered By: Renard Burgos on 03-25-2024 MCHC (RBC) [Mass/Vol] 32.4 g/dL 32-36 [facility] Mean platelet volume determi nationOrdered By: Renard Burgos on 03-25-2024 Platelet mean volume (Bld) [Entitic vol] 11.2 fL 6.2-12.0 [facility] Monocyte percentageOrdered B y: Renard Burgos on 03-25-2024 Monocytes/100 WBC (Bld) 8.0 % 0-10 [facility] Neutrophil percentageOrdered By: Renard Burgos on 03-25-2024 Neutrophils/100 WBC (Bld) 64.5 % 47-70 [facility] Nucleated red blood cell per centageOrdered By: Renard Burgos on 03-25-2024 Nucleated RBC/100 WBC (Bld) [Ratio] 0 % 0-5 [facility] Platelet countOrdered By: Garrick Bhatt on 03-25-2024 Platelets (Bld) [#/Vol] 204 10*3/uL 150-450 [facility] RBC Auto (Bld) [#/Vol]Ordere d By: Renard Burgos on 03-25-2024 RBC (Bld) [#/Vol] 4.69 10*6/uL 4.6-6.2 [facility] White blood cell (WBC) count Ordered By: Renard Burgos on 03-25-2024 WBC (Bld) [#/Vol] 8.3 10*3/uL 4.4-11.0 [facility] Absolute neutrophil countOrd ered By: Renard Burgos on 03-18-2024 Neutrophils (Bld) [#/Vol] 5.2 10*3/uL 2.0-7.7 [facility] Basophil percentageOrdered B y: Renard Burgos on 03-18-2024 Basophils/100 WBC (Bld) 0.6 % 0-1 [facility] CBC W/Diff, Automatedon 03-01 Absolute Lymph 2.23 X10 3/uL Normal 0.83-4.51 [facility] Comment on above: Order Comment: 109.1 Performed By: #### L 100.0100 ####[facility] [address] [place], [address] Absolute Neut 5.2 X10 3/uL Normal 2.0-7.7 [facility] Comment on above: Order Comment: 109.1 Performed By: #### L 100.0100 ####[facility] [address] [place], [address] Basophils/100 WBC (Bld) 0.6 % Normal 0-1 [facility] Comment on above: Order Comment: 109.1 Performed By: #### L 100.0100 ####[facility] [address] [place], [address] Eosinophils/100 WBC (Bld) 0.7 % Normal 0-5 [facility] Comment on above: Order Comment: 109.1 Performed By: #### L 100.0100 ####[facility] [address] [place], [address] Erythrocyte distribution width (RBC) [Ratio] 12.8 % Normal 11.6-14.6 [facility] Comment on above: Order Comment: 109.1 Performed By: #### L 100.0100 ####[facility] [address] [place], [address] Hematocrit (Bld) [Volume fraction] 42.0 % Normal 40-54 [facility] Comment on above: Order Comment: 109.1 Performed By: #### L 100.0100 ####[facility] [address] [place], [address] Hemoglobin (Bld) [Mass/Vol] 13.6 g/dL Normal 13.0-16.5 [facility] Comment on above: Order Comment: 109.1 Performed By: #### L 100.0100 ####[facility] [address] [place], [address] IG% 0.500 Normal 0.0-0.9 [facility] Comment on above: Order Comment: 109.1 Result Comment: IG% - Immature Granulocytes (promyelocytes, myelocytes andmetamyelocytes) > 1% indicates that a LEFT SHIFT is Present. Performed By: #### L 100.0100 ####[facility] [address] [place], [address] Lymphocytes/100 WBC (Bld) 27.0 % Normal 19-41 [facility] Comment on above: Order Comment: 109.1 Performed By: #### L 100.0100 ####[facility] [address] [place], [address] MCH (RBC) [Entitic mass] 29.5 pg Normal 27.0-32.0 [facility] Comment on above: Order Comment: 109.1 Performed By: #### L 100.0100 ####[facility] [address] [place], [address] MCHC (RBC) [Mass/Vol] 32.4 g/dL Normal 32-36 [facility] Comment on above: Order Comment: 109.1 Performed By: #### L 100.0100 ####[facility] [address] [place], [address] MCV (RBC) [Entitic vol] 91.1 fL Normal 80-94 [facility] Comment on above: Order Comment: 109.1 Performed By: #### L 100.0100 ####[facility] [address] [place], [address] Monocytes/100 WBC (Bld) 8.5 % Normal 0-10 [facility] Comment on above: Order Comment: 109.1 Performed By: #### L 100.0100 ####[facility] [address] [place], [address] Neutrophils/100 WBC (Bld) 62.7 % Normal 47-70 [facility] Comment on above: Order Comment: 109.1 Performed By: #### L 100.0100 ####[facility] [address] [place], [address] Nucleated RBC (Bld) [#/Vol] 0 10*3/uL Normal 0-5 [facility] Comment on above: Order Comment: 109.1 Performed By: #### L 100.0100 ####[facility] [address] [place], [address] Platelet mean volume (Bld) [Entitic vol] 10.8 fL Normal 6.2-12.0 [facility] Comment on above: Order Comment: 109.1 Performed By: #### L 100.0100 ####[facility] [address] [place], [address] Platelets (Bld) [#/Vol] 211 10*3/uL Normal 150-450 [facility] Comment on above: Order Comment: 109.1 Performed By: #### L 100.0100 ####[facility] [address] [place], [address] RBC (Bld) [#/Vol] 4.61 10*6/uL Normal 4.6-6.2 [facility] Comment on above: Order Comment: 109.1 Performed By: #### L 100.0100 ####[facility] [address] [place], [address] RDW SD 42.3 fl Normal 35.1-43.9 [facility] Comment on above: Order Comment: 109.1 Performed By: #### L 100.0100 ####[facility] [address] [place], [place], [address] WBC (Bld) [#/Vol] 8.3 10*3/uL Normal 4.4-11.0 [facility] Comment on above: Order Comment: 109.1 Performed By: #### L 100.0100 ####[facility] [address] [place], [place], [address] Eosinophil percentageOrdered By: Renard Burgos on 03-18-2024 Eosinophils/100 WBC (Bld) 0.7 % 0-5 [facility] Erythrocyte distribution wid th ratioOrdered By: Renard Burgos on 03-18-2024 Erythrocyte distribution width (RBC) [Ratio] 12.8 % 11.6-14.6 [facility] Erythrocyte distribution wid th standard deviationOrdered By: Renard Burgos on 03-18-2024 Erythrocyte distribution width (RBC) [Entitic vol] 42.3 fL 35.1-43.9 [facility] Hematocrit Auto (Bld) [Volum e fraction]Ordered By: Renard Burgos on 03-18-2024 Hematocrit (Bld) [Volume fraction] 42.0 % 40-54 [facility] Hemoglobin measurementOrdere d By: Renard Burgos on 03-18-2024 Hemoglobin (Bld) [Mass/Vol] 13.6 g/dL 13.0-16.5 [facility] Immature granulocytes/100 WB C Auto (Bld)Ordered By: Renard Burgos on 03-18-2024 Immature granulocytes/100 WBC (Bld) 0.500 % 0.0-0.9 [facility] Comment on above: IG% - Immature Granu locytes (promyelocytes, myelocytes and metamyelocytes) > 1% indicates that a LEFT SHIFT is Present. Lymphocytes Auto (Unsp spec) [#/Vol]Ordered By: Renard Bugros on 03-18-2024 Lymphocytes (Bld) [#/Vol] 2.23 10*3/uL 0.83-4.51 [facility] Lymphocytes/100 WBC Auto (Un sp spec)Ordered By: Renard Burgos on 03-18-2024 Lymphocytes/100 WBC (Bld) 27.0 % 19-41 [facility] MCV (mean corpuscular volume ) determinationOrdered By: Renard Burgos on 03-18-2024 MCV (RBC) [Entitic vol] 91.1 fL 80-94 [facility] Mean corpuscular hemoglobin (MCH) determinationOrdered By: Renard Burgos on 03-18-2024 MCH (RBC) [Entitic mass] 29.5 pg 27.0-32.0 [facility] Mean corpuscular hemoglobin concentration (MCHC) determinationOrdered By: Renard Burgos on 03-18-2024 MCHC (RBC) [Mass/Vol] 32.4 g/dL 32-36 [facility] Mean platelet volume determi nationOrdered By: Renard Burgos on 03-18-2024 Platelet mean volume (Bld) [Entitic vol] 10.8 fL 6.2-12.0 [facility] Monocyte percentageOrdered B y: Renard Burgos on 03-18-2024 Monocytes/100 WBC (Bld) 8.5 % 0-10 [facility] Neutrophil percentageOrdered By: Renard Burgos on 03-18-2024 Neutrophils/100 WBC (Bld) 62.7 % 47-70 [facility] Nucleated red blood cell per centageOrdered By: Renard Burgos on 03-18-2024 Nucleated RBC/100 WBC (Bld) [Ratio] 0 % 0-5 [facility] Platelet countOrdered By: Garrick Bhatt on 03-18-2024 Platelets (Bld) [#/Vol] 211 10*3/uL 150-450 [facility] RBC Auto (Bld) [#/Vol]Ordere d By: Renard Burgos on 03-18-2024 RBC (Bld) [#/Vol] 4.61 10*6/uL 4.6-6.2 [facility] White blood cell (WBC) count Ordered By: Renard Burgos on 03-18-2024 WBC (Bld) [#/Vol] 8.3 10*3/uL 4.4-11.0 [facility] Absolute neutrophil countOrd ered By: Renard Burgos on 03-11-2024 Neutrophils (Bld) [#/Vol] 6.2 10*3/uL 2.0-7.7 [facility] Automated blood erythrocyte countOrdered By: Renard Burgos on 03-11-2024 RBC (Bld) [#/Vol] 4.54 10*6/uL Low 4.6-6.2 [facility] Comment on above: Order Comment: 109.1 Performed By: #### L 100.0100 ####[facility] [address] [place], [address] Automated blood hematocrit ( percentage)Ordered By: Renard Burgos on 03-11-2024 Hematocrit (Bld) [Volume fraction] 41.5 % Normal 40-54 [facility] Comment on above: Order Comment: 109.1 Performed By: #### L 100.0100 ####[facility] [address] [place], [address] Automated lymphocyte count a s percentage of total leukocytesOrdered By: Renard Burgos on 03-11-2024 Lymphocytes/100 WBC (Bld) 25.6 % Normal 19-41 [facility] Comment on above: Order Comment: 109.1 Performed By: #### L 100.0100 ####[facility] [address] [place], [address] Basophil percentageOrdered B y: Renard Burgos on 03-11-2024 Basophils/100 WBC (Bld) 0.5 % Normal 0-1 [facility] Comment on above: Order Comment: 109.1 Performed By: #### L 100.0100 ####[facility] [address] [place], [address] CBC W/Diff, Automatedon 03-01 Absolute Lymph 2.50 X10 3/uL Normal 0.83-4.51 [facility] Comment on above: Order Comment: 109.1 Performed By: #### L 100.0100 ####[facility] [address] [place], [address] Absolute Neut 6.2 X10 3/uL Normal 2.0-7.7 [facility] Comment on above: Order Comment: 109.1 Performed By: #### L 100.0100 ####[facility] [address] [place], [address] IG% 0.500 Normal 0.0-0.9 [facility] Comment on above: Order Comment: 109.1 Result Comment: IG% - Immature Granulocytes (promyelocytes, myelocytes andmetamyelocytes) > 1% indicates that a LEFT SHIFT is Present. Performed By: #### L 100.0100 ####[facility] [address] [place], [address] Nucleated RBC (Bld) [#/Vol] 0 10*3/uL Normal 0-5 [facility] Comment on above: Order Comment: 109.1 Performed By: #### L 100.0100 ####[facility] [address] [place], [address] RDW SD 41.5 fl Normal 35.1-43.9 [facility] Comment on above: Order Comment: 109.1 Performed By: #### L 100.0100 ####[facility] [address] [place], [address] Eosinophil percentageOrdered By: Renard Burgos on 03-11-2024 Eosinophils/100 WBC (Bld) 0.6 % Normal 0-5 [facility] Comment on above: Order Comment: 109.1 Performed By: #### L 100.0100 ####[facility] [address] [place], [address] Erythrocyte distribution wid th ratioOrdered By: Renard Burgos on 03-11-2024 Erythrocyte distribution width (RBC) [Ratio] 12.7 % Normal 11.6-14.6 [facility] Comment on above: Order Comment: 109.1 Performed By: #### L 100.0100 ####[facility] [address] [place], [address] Erythrocyte distribution wid th standard deviationOrdered By: Renard Burgso on 03-11-2024 Erythrocyte distribution width (RBC) [Entitic vol] 41.5 fL 35.1-43.9 [facility] Hemoglobin measurementOrdere d By: Renard Burgos on 03-11-2024 Hemoglobin (Bld) [Mass/Vol] 13.8 g/dL Normal 13.0-16.5 [facility] Comment on above: Order Comment: 109.1 Performed By: #### L 100.0100 ####[facility] [address] [place], [place], [phone] Immature granulocytes/100 WB C Auto (Bld)Ordered By: Renard Burgos on 03-11-2024 Immature granulocytes/100 WBC (Bld) 0.500 % 0.0-0.9 [facility] Comment on above: IG% - Immature Granu locytes (promyelocytes, myelocytes and metamyelocytes) > 1% indicates that a LEFT SHIFT is Present. Lymphocytes Auto (Unsp spec) [#/Vol]Ordered By: Renard Burgos on 03-11-2024 Lymphocytes (Bld) [#/Vol] 2.50 10*3/uL 0.83-4.51 [facility] MCV (mean corpuscular volume ) determinationOrdered By: Renard Burgos on 03-11-2024 MCV (RBC) [Entitic vol] 91.4 fL Normal 80-94 [facility] Comment on above: Order Comment: 109.1 Performed By: #### L 100.0100 ####[facility] [address] [place], [place], [phone] Mean corpuscular hemoglobin (MCH) determinationOrdered By: Renard Burgos on 03-11-2024 MCH (RBC) [Entitic mass] 30.4 pg Normal 27.0-32.0 [facility] Comment on above: Order Comment: 109.1 Performed By: #### L 100.0100 ####[facility] [address] [place], [place], [phone] Mean corpuscular hemoglobin concentration (MCHC) determinationOrdered By: Renard Burgos on 03-11-2024 MCHC (RBC) [Mass/Vol] 33.3 g/dL Normal 32-36 [facility] Comment on above: Order Comment: 109.1 Performed By: #### L 100.0100 ####[facility] [address] [place], [address] Mean platelet volume determi nationOrdered By: Renard Burgos on 03-11-2024 Platelet mean volume (Bld) [Entitic vol] 11.0 fL Normal 6.2-12.0 [facility] Comment on above: Order Comment: 109.1 Performed By: #### L 100.0100 ####[facility] [address] [place], [address] Monocyte percentageOrdered B y: Renard Burgos on 03-11-2024 Monocytes/100 WBC (Bld) 9.0 % Normal 0-10 [facility] Comment on above: Order Comment: 109.1 Performed By: #### L 100.0100 ####[facility] [address] [place], [address] Neutrophil percentageOrdered By: Renard Burgos on 03-11-2024 Neutrophils/100 WBC (Bld) 63.8 % Normal 47-70 [facility] Comment on above: Order Comment: 109.1 Performed By: #### L 100.0100 ####[facility] [address] [place], [address] Nucleated red blood cell per centageOrdered By: Renard Burgos on 03-11-2024 Nucleated RBC/100 WBC (Bld) [Ratio] 0 % 0-5 [facility] Platelet countOrdered By: Garrick Bhatt on 03-11-2024 Platelets (Bld) [#/Vol] 220 10*3/uL Normal 150-450 [facility] Comment on above: Order Comment: 109.1 Performed By: #### L 100.0100 ####[facility] [address] [place], [address] White blood cell (WBC) count Ordered By: Renard Burgos on 03-11-2024 WBC (Bld) [#/Vol] 9.8 10*3/uL Normal 4.4-11.0 [facility] Comment on above: Order Comment: 109.1 Performed By: #### L 100.0100 ####[facility] [address] [place], [address] CBC W/Diff, Automatedon 11-0 Absolute Lymph 1.99 X10 3/uL Normal 0.83-4.51 [facility] Comment on above: Order Comment: 109.1 Performed By: #### L 100.0100 ####[facility] [address] [place], [address] Absolute Neut 5.3 X10 3/uL Normal 2.0-7.7 [facility] Comment on above: Order Comment: 109.1 Performed By: #### L 100.0100 ####[facility] [address] [place], [address] Basophils/100 WBC (Bld) 0.6 % Normal 0-1 [facility] Comment on above: Order Comment: 109.1 Performed By: #### L 100.0100 ####[facility] [address] [place], [address] Eosinophils/100 WBC (Bld) 0.7 % Normal 0-5 [facility] Comment on above: Order Comment: 109.1 Performed By: #### L 100.0100 ####[facility] [address] [place], [address] Erythrocyte distribution width (RBC) [Ratio] 12.7 % Normal 11.6-14.6 [facility] Comment on above: Order Comment: 109.1 Performed By: #### L 100.0100 ####[facility] [address] [place], [address] Hematocrit (Bld) [Volume fraction] 42.1 % Normal 40-54 [facility] Comment on above: Order Comment: 109.1 Performed By: #### L 100.0100 ####[facility] [address] [place], [address] Hemoglobin (Bld) [Mass/Vol] 14.0 g/dL Normal 13.0-16.5 [facility] Comment on above: Order Comment: 109.1 Performed By: #### L 100.0100 ####[facility] [address] [place], [address] IG% 0.400 Normal 0.0-0.9 [facility] Comment on above: Order Comment: 109.1 Result Comment: IG% - Immature Granulocytes (promyelocytes, myelocytes andmetamyelocytes) > 1% indicates that a LEFT SHIFT is Present. Performed By: #### L 100.0100 ####[facility] [address] [place], [address] Lymphocytes/100 WBC (Bld) 24.5 % Normal 19-41 [facility] Comment on above: Order Comment: 109.1 Performed By: #### L 100.0100 ####[facility] [address] [place], [address] MCH (RBC) [Entitic mass] 30.2 pg Normal 27.0-32.0 [facility] Comment on above: Order Comment: 109.1 Performed By: #### L 100.0100 ####[facility] [address] [place], [address] MCHC (RBC) [Mass/Vol] 33.3 g/dL Normal 32-36 [facility] Comment on above: Order Comment: 109.1 Performed By: #### L 100.0100 ####[facility] [address] [place], [address] MCV (RBC) [Entitic vol] 90.7 fL Normal 80-94 [facility] Comment on above: Order Comment: 109.1 Performed By: #### L 100.0100 ####[facility] [address] [place], [address] Monocytes/100 WBC (Bld) 8.2 % Normal 0-10 [facility] Comment on above: Order Comment: 109.1 Performed By: #### L 100.0100 ####[facility] [address] [place], [address] Neutrophils/100 WBC (Bld) 65.6 % Normal 47-70 [facility] Comment on above: Order Comment: 109.1 Performed By: #### L 100.0100 ####[facility] [address] [place], [address] Nucleated RBC (Bld) [#/Vol] 0 10*3/uL Normal 0-5 [facility] Comment on above: Order Comment: 109.1 Performed By: #### L 100.0100 ####[facility] [address] [place], [address] Platelet mean volume (Bld) [Entitic vol] 11.0 fL Normal 6.2-12.0 [facility] Comment on above: Order Comment: 109.1 Performed By: #### L 100.0100 ####[facility] [address] [place], [address] Platelets (Bld) [#/Vol] 216 10*3/uL Normal 150-450 [facility] Comment on above: Order Comment: 109.1 Performed By: #### L 100.0100 ####[facility] [address] [place], [address] RBC (Bld) [#/Vol] 4.64 10*6/uL Normal 4.6-6.2 [facility] Comment on above: Order Comment: 109.1 Performed By: #### L 100.0100 ####[facility] [address] [place], [address] RDW SD 41.9 fl Normal 35.1-43.9 [facility] Comment on above: Order Comment: 109.1 Performed By: #### L 100.0100 ####[facility] [address] [place], [address] WBC (Bld) [#/Vol] 8.1 10*3/uL Normal 4.4-11.0 [facility] Comment on above: Order Comment: 109.1 Performed By: #### L 100.0100 ####[facility] [address] [place], [address] CBC W/Diff, Automatedon 10-2 Absolute Lymph 2.15 X10 3/uL Normal 0.83-4.51 [facility] Comment on above: Order Comment: 109.1 Performed By: #### L 100.0100 ####[facility] [address] [place], [address] Absolute Neut 7.1 X10 3/uL Normal 2.0-7.7 [facility] Comment on above: Order Comment: 109.1 Performed By: #### L 100.0100 ####[facility] [address] [place], [address] Basophils/100 WBC (Bld) 0.4 % Normal 0-1 [facility] Comment on above: Order Comment: 109.1 Performed By: #### L 100.0100 ####[facility] [address] [place], [address] Eosinophils/100 WBC (Bld) 0.6 % Normal 0-5 [facility] Comment on above: Order Comment: 109.1 Performed By: #### L 100.0100 ####[facility] [address] [place], [address] Erythrocyte distribution width (RBC) [Ratio] 12.6 % Normal 11.6-14.6 [facility] Comment on above: Order Comment: 109.1 Performed By: #### L 100.0100 ####[facility] [address] [place], [address] Hematocrit (Bld) [Volume fraction] 40.2 % Normal 40-54 [facility] Comment on above: Order Comment: 109.1 Performed By: #### L 100.0100 ####[facility] [address] [place], [address] Hemoglobin (Bld) [Mass/Vol] 13.6 g/dL Normal 13.0-16.5 [facility] Comment on above: Order Comment: 109.1 Performed By: #### L 100.0100 ####[facility] [address] [place], [address] IG% 0.500 Normal 0.0-0.9 [facility] Comment on above: Order Comment: 109.1 Result Comment: IG% - Immature Granulocytes (promyelocytes, myelocytes andmetamyelocytes) > 1% indicates that a LEFT SHIFT is Present. Performed By: #### L 100.0100 ####[facility] [address] [place], [address] Lymphocytes/100 WBC (Bld) 20.9 % Normal 19-41 [facility] Comment on above: Order Comment: 109.1 Performed By: #### L 100.0100 ####[facility] [address] [place], [address] MCH (RBC) [Entitic mass] 30.6 pg Normal 27.0-32.0 [facility] Comment on above: Order Comment: 109.1 Performed By: #### L 100.0100 ####[facility] [address] [place], [address] MCHC (RBC) [Mass/Vol] 33.8 g/dL Normal 32-36 [facility] Comment on above: Order Comment: 109.1 Performed By: #### L 100.0100 ####[facility] [address] [place], [address] MCV (RBC) [Entitic vol] 90.5 fL Normal 80-94 [facility] Comment on above: Order Comment: 109.1 Performed By: #### L 100.0100 ####[facility] [address] [place], [address] Monocytes/100 WBC (Bld) 8.5 % Normal 0-10 [facility] Comment on above: Order Comment: 109.1 Performed By: #### L 100.0100 ####[facility] [address] [place], [address] Neutrophils/100 WBC (Bld) 69.1 % Normal 47-70 [facility] Comment on above: Order Comment: 109.1 Performed By: #### L 100.0100 ####[facility] [address] [place], [address] Nucleated RBC (Bld) [#/Vol] 0 10*3/uL Normal 0-5 [facility] Comment on above: Order Comment: 109.1 Performed By: #### L 100.0100 ####[facility] [address] [place], [address] Platelet mean volume (Bld) [Entitic vol] 11.2 fL Normal 6.2-12.0 [facility] Comment on above: Order Comment: 109.1 Performed By: #### L 100.0100 ####[facility] [address] [place], [address] Platelets (Bld) [#/Vol] 226 10*3/uL Normal 150-450 [facility] Comment on above: Order Comment: 109.1 Performed By: #### L 100.0100 ####[facility] [address] [place], [address] RBC (Bld) [#/Vol] 4.44 10*6/uL Low 4.6-6.2 [facility] Comment on above: Order Comment: 109.1 Performed By: #### L 100.0100 ####[facility] [address] [place], [address] RDW SD 41.5 fl Normal 35.1-43.9 [facility] Comment on above: Order Comment: 109.1 Performed By: #### L 100.0100 ####[facility] [address] [place], [address] WBC (Bld) [#/Vol] 10.3 10*3/uL Normal 4.4-11.0 [facility] Comment on above: Order Comment: 109.1 Performed By: #### L 100.0100 ####[facility] [address] [place], [address] CBC-Complete Blood Cnt No Di ffon 02-23-2024 Erythrocyte distribution width (RBC) [Ratio] 12.9 % Normal 11.6-14.6 [facility] Comment on above: Order Comment: 109-1 Performed By: #### L 500.4100, L100.0500, L500.4050 ####[facility] [address] [place], [address] Hematocrit (Bld) [Volume fraction] 41.6 % Normal 40-54 [facility] Comment on above: Order Comment: 109-1 Performed By: #### L 500.4100, L100.0500, L500.4050 ####[facility] [address] [place], [address] Hemoglobin (Bld) [Mass/Vol] 14.0 g/dL Normal 13.0-16.5 [facility] Comment on above: Order Comment: 109-1 Performed By: #### L 500.4100, L100.0500, L500.4050 ####[facility] [address] [place], [address] MCH (RBC) [Entitic mass] 30.6 pg Normal 27.0-32.0 [facility] Comment on above: Order Comment: 109-1 Performed By: #### L 500.4100, L100.0500, L500.4050 ####[facility] [address] [place], [address] MCHC (RBC) [Mass/Vol] 33.7 g/dL Normal 32-36 [facility] Comment on above: Order Comment: 109-1 Performed By: #### L 500.4100, L100.0500, L500.4050 ####[facility] [address] [place], [address] MCV (RBC) [Entitic vol] 91.0 fL Normal 80-94 [facility] Comment on above: Order Comment: 109-1 Performed By: #### L 500.4100, L100.0500, L500.4050 ####[facility] [address] [place], [address] Platelet mean volume (Bld) [Entitic vol] 11.5 fL Normal 6.2-12.0 [facility] Comment on above: Order Comment: 109-1 Performed By: #### L 500.4100, L100.0500, L500.4050 ####[facility] [address] [place], [address] Platelets (Bld) [#/Vol] 209 10*3/uL Normal 150-450 [facility] Comment on above: Order Comment: 109-1 Performed By: #### L 500.4100, L100.0500, L500.4050 ####[facility] [address] [place], [address] RBC (Bld) [#/Vol] 4.57 10*6/uL Low 4.6-6.2 [facility] Comment on above: Order Comment: 109-1 Performed By: #### L 500.4100, L100.0500, L500.4050 ####[facility] [address] [place], [address] RDW SD 42.4 fl Normal 35.1-43.9 [facility] Comment on above: Order Comment: 109-1 Performed By: #### L 500.4100, L100.0500, L500.4050 ####[facility] [address] [place], [address] WBC (Bld) [#/Vol] 8.4 10*3/uL Normal 4.4-11.0 [facility] Comment on above: Order Comment: 109-1 Performed By: #### L 500.4100, L100.0500, L500.4050 ####[facility] [address] [place], [address] Comprehensive Metabolic Prof [facility] 02-23-2024 Albumin [Mass/Vol] 3.1 g/dL Low 3.2-5.0 [facility] Comment on above: Order Comment: 109-1 Performed By: #### L 500.4100, L100.0500, L500.4050 ####[facility] [address] [place], [address] Albumin/Globulin [Mass ratio] 1.1 {ratio} Normal 0.9-2.4 [facility] Comment on above: Order Comment: 109-1 Performed By: #### L 500.4100, L100.0500, L500.4050 ####[facility] [address] [place], [address] ALK P 123 U/L High 45-117 [facility] Comment on above: Order Comment: 109-1 Performed By: #### L 500.4100, L100.0500, L500.4050 ####[facility] [address] [place], [address] ALT [Catalytic activity/Vol] 16 U/L Normal 16-61 [facility] Comment on above: Order Comment: 109-1 Performed By: #### L 500.4100, L100.0500, L500.4050 ####[facility] [address] [place], [address] AST [Catalytic activity/Vol] 10 U/L Low 15-37 [facility] Comment on above: Order Comment: 109-1 Performed By: #### L 500.4100, L100.0500, L500.4050 ####[facility] [address] [place], [address] Bilirubin [Mass/Vol] 0.50 mg/dL Normal 0.20-1.00 [facility] Comment on above: Order Comment: 109-1 Result Comment: For patients on eltrombopag therapy, use of Dimension [place] TBIL is not recommended. Performed By: #### L 500.4100, L100.0500, L500.4050 ####[facility] [address] [place], [address] BUN/CRE 24.9 RATIO High 10-20 [facility] Comment on above: Order Comment: 109-1 Performed By: #### L 500.4100, L100.0500, L500.4050 ####[facility] [address] [place], [address] CA,Total 8.5 mg/dL Normal 8.5-10.1 [facility] Comment on above: Order Comment: 109-1 Performed By: #### L 500.4100, L100.0500, L500.4050 ####[facility] [address] [place], [address] Chloride [Moles/Vol] 109 mmol/L High 98-107 [facility] Comment on above: Order Comment: 109-1 Performed By: #### L 500.4100, L100.0500, L500.4050 ####[facility] [address] [place], [address] CO2 [Moles/Vol] 27.0 mmol/L Normal 21.0-32.0 [facility] Comment on above: Order Comment: 109-1 Performed By: #### L 500.4100, L100.0500, L500.4050 ####[facility] [address] [place], [address] Creatinine [Mass/Vol] 0.64 mg/dL Low 0.70-1.30 [facility] Comment on above: Order Comment: 109-1 Result Comment: The validity of the calculated GFR GFRAA in patients over70 years has not been determined. Clinical correlation isessential. Performed By: #### L 500.4100, L100.0500, L500.4050 ####[facility] [address] [place], [address] EST GFR - AA 160 mL/min Normal >60 [facility] Comment on above: Order Comment: 109-1 Result Comment: Afri can Bhutanese GFR Calc Performed By: #### L 500.4100, L100.0500, L500.4050 ####[facility] [address] [place], [address] GAP 6 Normal 5-15 [facility] Comment on above: Order Comment: 109-1 Performed By: #### L 500.4100, L100.0500, L500.4050 ####[facility] [address] [place], [address] GFR/1.73 sq M.predicted among non-blacks MDRD (S/P/Bld) [Vol rate/Area] 132 mL/min/{1.73_m2} Normal >60 [facility] Comment on above: Order Comment: 109- Result Comment: Non- GFR Calc Performed By: #### L 500.4100, L100.0500, L500.4050 ####[facility] [address] [place], [address] Globulin (S) [Mass/Vol] 2.9 g/dL Normal 2.2-4.2 [facility] Comment on above: Order Comment: 109-1 Performed By: #### L 500.4100, L100.0500, L500.4050 ####[facility] [address] [place], [address] Glucose [Mass/Vol] 111 mg/dL High 74-106 [facility] Comment on above: Order Comment: 109- Result Comment: Fast ing Glucose result from 100 to 125 mg/dLsuggests IMPAIRED HOMEOSTASIS per A.D.A. criteria. Performed By: #### L 500.4100, L100.0500, L500.4050 ####[facility] [address] [place], [address] Potassium [Moles/Vol] 3.6 mmol/L Normal 3.5-5.1 [facility] Comment on above: Order Comment: 109-1 Performed By: #### L 500.4100, L100.0500, L500.4050 ####[facility] [address] [place], [address] Sodium [Moles/Vol] 141 mmol/L Normal 136-145 [facility] Comment on above: Order Comment: 109-1 Performed By: #### L 500.4100, L100.0500, L500.4050 ####[facility] [address] [place], [address] T PROT 6.0 g/dL Low 6.4-8.2 [facility] Comment on above: Order Comment: 109-1 Performed By: #### L 500.4100, L100.0500, L500.4050 ####[facility] [address] [place], [address] Urea nitrogen [Mass/Vol] 16 mg/dL Normal 7-18 [facility] Comment on above: Order Comment: 109-1 Performed By: #### L 500.4100, L100.0500, L500.4050 ####[facility] [address] [place], [address] Lipid Profileon 02-23-2024 Cholesterol [Mass/Vol] 123 mg/dL Normal 200 [facility] Comment on above: Order Comment: 109-1 Result Comment: <200 mg/dL Desirable 200-240 mg/dL Borderline >240 mg/dL High Risk Performed By: #### L 500.4100, L100.0500, L500.4050 ####[facility] [address] [place], [address] Cholesterol in HDL [Mass/Vol] 28 mg/dL Low [facility] Comment on above: Order Comment: 109-1 Result Comment: The drugs N-Acetylcysteine and Metamizole may falselydepress this assay. Reference Range HDL <40 mg/dL Low HDL Cholesterol HDL >or= 60 mg/dL High HDL Cholesterol Performed By: #### L 500.4100, L100.0500, L500.4050 ####[facility] [address] [place], [address] Cholesterol in LDL [Mass/Vol] 71 mg/dL Normal 0-130 [facility] Comment on above: Order Comment: 109-1 Performed By: #### L 500.4100, L100.0500, L500.4050 ####[facility] [address] [place], [address] Cholesterol in VLDL [Mass/Vol] 24 mg/dL Normal 5-40 [facility] Comment on above: Order Comment: 109-1 Performed By: #### L 500.4100, L100.0500, L500.4050 ####[facility] [address] [place], [address] Triglyceride [Mass/Vol] 119 mg/dL Normal [facility] Comment on above: Order Comment: 109-1 Result Comment: The drugs N-Acetylcysteine and Metamizole may falselydepress this assay.Serum Triglycerides Reference Interval Normal <150 mg/dL Borderline high 150 - 199 mg/dL High 200 - 499 mg/dL Very High > or = 500 mg/dL Performed By: #### L 500.4100, L100.0500, L500.4050 ####[facility] [address] [place], [address] CBC W/Diff, Automatedon 10-2 Absolute Lymph 1.92 X10 3/uL Normal 0.83-4.51 [facility] Comment on above: Order Comment: 109-1 Performed By: #### L 100.0100 ####[facility] [address] [place], [address] Absolute Neut 6.9 X10 3/uL Normal 2.0-7.7 [facility] Comment on above: Order Comment: 109-1 Performed By: #### L 100.0100 ####[facility] [address] [place], [address] Basophils/100 WBC (Bld) 0.4 % Normal 0-1 [facility] Comment on above: Order Comment: 109-1 Performed By: #### L 100.0100 ####[facility] [address] [place], [address] Eosinophils/100 WBC (Bld) 0.6 % Normal 0-5 [facility] Comment on above: Order Comment: 109-1 Performed By: #### L 100.0100 ####[facility] [address] [place], [address] Erythrocyte distribution width (RBC) [Ratio] 12.9 % Normal 11.6-14.6 [facility] Comment on above: Order Comment: 109-1 Performed By: #### L 100.0100 ####[facility] [address] [place], [address] Hematocrit (Bld) [Volume fraction] 40.4 % Normal 40-54 [facility] Comment on above: Order Comment: 109-1 Performed By: #### L 100.0100 ####[facility] [address] [place], [address] Hemoglobin (Bld) [Mass/Vol] 13.3 g/dL Normal 13.0-16.5 [facility] Comment on above: Order Comment: 109-1 Performed By: #### L 100.0100 ####[facility] [address] [place], [address] IG% 0.300 Normal 0.0-0.9 [facility] Comment on above: Order Comment: 109-1 Result Comment: IG% - Immature Granulocytes (promyelocytes, myelocytes andmetamyelocytes) > 1% indicates that a LEFT SHIFT is Present. Performed By: #### L 100.0100 ####[facility] [address] [place], [address] Lymphocytes/100 WBC (Bld) 20.1 % Normal 19-41 [facility] Comment on above: Order Comment: 109-1 Performed By: #### L 100.0100 ####[facility] [address] [place], [address] MCH (RBC) [Entitic mass] 30.2 pg Normal 27.0-32.0 [facility] Comment on above: Order Comment: 109-1 Performed By: #### L 100.0100 ####[facility] [address] [place], [address] MCHC (RBC) [Mass/Vol] 32.9 g/dL Normal 32-36 [facility] Comment on above: Order Comment: 109-1 Performed By: #### L 100.0100 ####[facility] [address] [place], [address] MCV (RBC) [Entitic vol] 91.6 fL Normal 80-94 [facility] Comment on above: Order Comment: 109-1 Performed By: #### L 100.0100 ####[facility] [address] [place], [address] Monocytes/100 WBC (Bld) 6.8 % Normal 0-10 [facility] Comment on above: Order Comment: 109-1 Performed By: #### L 100.0100 ####[facility] [address] [place], [address] Neutrophils/100 WBC (Bld) 71.8 % High 47-70 [facility] Comment on above: Order Comment: 109-1 Performed By: #### L 100.0100 ####[facility] [address] [place], [address] Nucleated RBC (Bld) [#/Vol] 0 10*3/uL Normal 0-5 [facility] Comment on above: Order Comment: 109-1 Performed By: #### L 100.0100 ####[facility] [address] [place], [address] Platelet mean volume (Bld) [Entitic vol] 10.9 fL Normal 6.2-12.0 [facility] Comment on above: Order Comment: 109-1 Performed By: #### L 100.0100 ####[facility] [address] [place], [address] Platelets (Bld) [#/Vol] 209 10*3/uL Normal 150-450 [facility] Comment on above: Order Comment: 109-1 Performed By: #### L 100.0100 ####[facility] [address] [place], [address] RBC (Bld) [#/Vol] 4.41 10*6/uL Low 4.6-6.2 [facility] Comment on above: Order Comment: 109-1 Performed By: #### L 100.0100 ####[facility] [address] [place], [address] RDW SD 42.8 fl Normal 35.1-43.9 [facility] Comment on above: Order Comment: 109-1 Performed By: #### L 100.0100 ####[facility] [address] [place], [address] WBC (Bld) [#/Vol] 9.6 10*3/uL Normal 4.4-11.0 [facility] Comment on above: Order Comment: 109-1 Performed By: #### L 100.0100 ####[facility] [address] [place], [address] CBC W/Diff, Automatedon 10- Absolute Lymph 2.08 X10 3/uL Normal 0.83-4.51 [facility] Comment on above: Order Comment: 109.1 Performed By: #### L 100.0100 ####[facility] [address] [place], [address] Absolute Neut 6.9 X10 3/uL Normal 2.0-7.7 [facility] Comment on above: Order Comment: 109.1 Performed By: #### L 100.0100 ####[facility] [address] [place], [address] Basophils/100 WBC (Bld) 0.5 % Normal 0-1 [facility] Comment on above: Order Comment: 109.1 Performed By: #### L 100.0100 ####[facility] [address] [place], [address] Eosinophils/100 WBC (Bld) 0.3 % Normal 0-5 [facility] Comment on above: Order Comment: 109.1 Performed By: #### L 100.0100 ####[facility] [address] [place], [address] Erythrocyte distribution width (RBC) [Ratio] 12.8 % Normal 11.6-14.6 [facility] Comment on above: Order Comment: 109.1 Performed By: #### L 100.0100 ####[facility] [address] [place], [address] Hematocrit (Bld) [Volume fraction] 40.6 % Normal 40-54 [facility] Comment on above: Order Comment: 109.1 Performed By: #### L 100.0100 ####[facility] [address] [place], [address] Hemoglobin (Bld) [Mass/Vol] 13.1 g/dL Normal 13.0-16.5 [facility] Comment on above: Order Comment: 109.1 Performed By: #### L 100.0100 ####[facility] [address] [place], [address] IG% 0.300 Normal 0.0-0.9 [facility] Comment on above: Order Comment: 109.1 Result Comment: IG% - Immature Granulocytes (promyelocytes, myelocytes andmetamyelocytes) > 1% indicates that a LEFT SHIFT is Present. Performed By: #### L 100.0100 ####[facility] [address] [place], [address] Lymphocytes/100 WBC (Bld) 21.2 % Normal 19-41 [facility] Comment on above: Order Comment: 109.1 Performed By: #### L 100.0100 ####[facility] [address] [place], [address] MCH (RBC) [Entitic mass] 29.8 pg Normal 27.0-32.0 [facility] Comment on above: Order Comment: 109.1 Performed By: #### L 100.0100 ####[facility] [address] [place], [address] MCHC (RBC) [Mass/Vol] 32.3 g/dL Normal 32-36 [facility] Comment on above: Order Comment: 109.1 Performed By: #### L 100.0100 ####[facility] [address] [place], [address] MCV (RBC) [Entitic vol] 92.5 fL Normal 80-94 [facility] Comment on above: Order Comment: 109.1 Performed By: #### L 100.0100 ####[facility] [address] [place], [address] Monocytes/100 WBC (Bld) 7.6 % Normal 0-10 [facility] Comment on above: Order Comment: 109.1 Performed By: #### L 100.0100 ####[facility] [address] [place], [address] Neutrophils/100 WBC (Bld) 70.1 % High 47-70 [facility] Comment on above: Order Comment: 109.1 Performed By: #### L 100.0100 ####[facility] [address] [place], [address] Nucleated RBC (Bld) [#/Vol] 0 10*3/uL Normal 0-5 [facility] Comment on above: Order Comment: 109.1 Performed By: #### L 100.0100 ####[facility] [address] [place], [address] Platelet mean volume (Bld) [Entitic vol] 10.8 fL Normal 6.2-12.0 [facility] Comment on above: Order Comment: 109.1 Performed By: #### L 100.0100 ####[facility] [address] [place], [address] Platelets (Bld) [#/Vol] 221 10*3/uL Normal 150-450 [facility] Comment on above: Order Comment: 109.1 Performed By: #### L 100.0100 ####[facility] [address] [place], [address] RBC (Bld) [#/Vol] 4.39 10*6/uL Low 4.6-6.2 [facility] Comment on above: Order Comment: 109.1 Performed By: #### L 100.0100 ####[facility] [address] [place], [address] RDW SD 43.4 fl Normal 35.1-43.9 [facility] Comment on above: Order Comment: 109.1 Performed By: #### L 100.0100 ####[facility] [address] [place], [address] WBC (Bld) [#/Vol] 9.8 10*3/uL Normal 4.4-11.0 [facility] Comment on above: Order Comment: 109.1 Performed By: #### L 100.0100 ####[facility] [address] [place], [address] CBC W/Diff, Automatedon 10-0 7-2024 Absolute Lymph 2.06 X10 3/uL Normal 0.83-4.51 [facility] Comment on above: Order Comment: 109.1 Performed By: #### L 100.0100 ####[facility] [address] [place], [address] Absolute Neut 4.8 X10 3/uL Normal 2.0-7.7 [facility] Comment on above: Order Comment: 109.1 Performed By: #### L 100.0100 ####[facility] [address] [place], [address] Basophils/100 WBC (Bld) 0.7 % Normal 0-1 [facility] Comment on above: Order Comment: 109.1 Performed By: #### L 100.0100 ####[facility] [address] [place], [address] Eosinophils/100 WBC (Bld) 0.5 % Normal 0-5 [facility] Comment on above: Order Comment: 109.1 Performed By: #### L 100.0100 ####[facility] [address] [place], [address] Erythrocyte distribution width (RBC) [Ratio] 13.2 % Normal 11.6-14.6 [facility] Comment on above: Order Comment: 109.1 Performed By: #### L 100.0100 ####[facility] [address] [place], [address] Hematocrit (Bld) [Volume fraction] 42.7 % Normal 40-54 [facility] Comment on above: Order Comment: 109.1 Performed By: #### L 100.0100 ####[facility] [address] [place], [address] Hemoglobin (Bld) [Mass/Vol] 13.5 g/dL Normal 13.0-16.5 [facility] Comment on above: Order Comment: 109.1 Performed By: #### L 100.0100 ####[facility] [address] [place], [address] IG% 0.400 Normal 0.0-0.9 [facility] Comment on above: Order Comment: 109.1 Result Comment: IG% - Immature Granulocytes (promyelocytes, myelocytes andmetamyelocytes) > 1% indicates that a LEFT SHIFT is Present. Performed By: #### L 100.0100 ####[facility] [address] [place], [address] Lymphocytes/100 WBC (Bld) 26.9 % Normal 19-41 [facility] Comment on above: Order Comment: 109.1 Performed By: #### L 100.0100 ####[facility] [address] [place], [address] MCH (RBC) [Entitic mass] 29.3 pg Normal 27.0-32.0 [facility] Comment on above: Order Comment: 109.1 Performed By: #### L 100.0100 ####[facility] [address] [place], [address] MCHC (RBC) [Mass/Vol] 31.6 g/dL Low 32-36 [facility] Comment on above: Order Comment: 109.1 Performed By: #### L 100.0100 ####[facility] [address] [place], [address] MCV (RBC) [Entitic vol] 92.8 fL Normal 80-94 [facility] Comment on above: Order Comment: 109.1 Performed By: #### L 100.0100 ####[facility] [address] [place], [address] Monocytes/100 WBC (Bld) 9.3 % Normal 0-10 [facility] Comment on above: Order Comment: 109.1 Performed By: #### L 100.0100 ####[facility] [address] [place], [address] Neutrophils/100 WBC (Bld) 62.2 % Normal 47-70 [facility] Comment on above: Order Comment: 109.1 Performed By: #### L 100.0100 ####[facility] [address] [place], [address] Nucleated RBC (Bld) [#/Vol] 0 10*3/uL Normal 0-5 [facility] Comment on above: Order Comment: 109.1 Performed By: #### L 100.0100 ####[facility] [address] [place], [address] Platelet mean volume (Bld) [Entitic vol] 11.2 fL Normal 6.2-12.0 [facility] Comment on above: Order Comment: 109.1 Performed By: #### L 100.0100 ####[facility] [address] [place], [address] Platelets (Bld) [#/Vol] 192 10*3/uL Normal 150-450 [facility] Comment on above: Order Comment: 109.1 Performed By: #### L 100.0100 ####[facility] [address] [place], [address] RBC (Bld) [#/Vol] 4.60 10*6/uL Normal 4.6-6.2 [facility] Comment on above: Order Comment: 109.1 Performed By: #### L 100.0100 ####[facility] [address] [place], [address] RDW SD 44.9 fl High 35.1-43.9 [facility] Comment on above: Order Comment: 109.1 Performed By: #### L 100.0100 ####[facility] [address] [place], [address] WBC (Bld) [#/Vol] 7.7 10*3/uL Normal 4.4-11.0 [facility] Comment on above: Order Comment: 109.1 Performed By: #### L 100.0100 ####[facility] [address] [place], [address] CBC W/Diff, Automatedon 09-3 0-2024 Absolute Lymph 2.12 X10 3/uL Normal 0.83-4.51 [facility] Comment on above: Order Comment: 109.1 Performed By: #### L 100.0100 ####[facility] [address] [place], [address] Absolute Neut 5.2 X10 3/uL Normal 2.0-7.7 [facility] Comment on above: Order Comment: 109.1 Performed By: #### L 100.0100 ####[facility] [address] [place], [address] Basophils/100 WBC (Bld) 0.6 % Normal 0-1 [facility] Comment on above: Order Comment: 109.1 Performed By: #### L 100.0100 ####[facility] [address] [place], [address] Eosinophils/100 WBC (Bld) 0.5 % Normal 0-5 [facility] Comment on above: Order Comment: 109.1 Performed By: #### L 100.0100 ####[facility] [address] [place], [address] Erythrocyte distribution width (RBC) [Ratio] 13.2 % Normal 11.6-14.6 [facility] Comment on above: Order Comment: 109.1 Performed By: #### L 100.0100 ####[facility] [address] [place], [address] Hematocrit (Bld) [Volume fraction] 46.0 % Normal 40-54 [facility] Comment on above: Order Comment: 109.1 Performed By: #### L 100.0100 ####[facility] [address] [place], [address] Hemoglobin (Bld) [Mass/Vol] 14.5 g/dL Normal 13.0-16.5 [facility] Comment on above: Order Comment: 109.1 Performed By: #### L 100.0100 ####[facility] [address] [place], [address] IG% 0.200 Normal 0.0-0.9 [facility] Comment on above: Order Comment: 109.1 Result Comment: IG% - Immature Granulocytes (promyelocytes, myelocytes andmetamyelocytes) > 1% indicates that a LEFT SHIFT is Present. Performed By: #### L 100.0100 ####[facility] [address] [place], [address] Lymphocytes/100 WBC (Bld) 25.9 % Normal 19-41 [facility] Comment on above: Order Comment: 109.1 Performed By: #### L 100.0100 ####[facility] [address] [place], [address] MCH (RBC) [Entitic mass] 29.2 pg Normal 27.0-32.0 [facility] Comment on above: Order Comment: 109.1 Performed By: #### L 100.0100 ####[facility] [address] [place], [address] MCHC (RBC) [Mass/Vol] 31.5 g/dL Low 32-36 [facility] Comment on above: Order Comment: 109.1 Performed By: #### L 100.0100 ####[facility] [address] [place], [address] MCV (RBC) [Entitic vol] 92.7 fL Normal 80-94 [facility] Comment on above: Order Comment: 109.1 Performed By: #### L 100.0100 ####[facility] [address] [place], [address] Monocytes/100 WBC (Bld) 9.0 % Normal 0-10 [facility] Comment on above: Order Comment: 109.1 Performed By: #### L 100.0100 ####[facility] [address] [place], [address] Neutrophils/100 WBC (Bld) 63.8 % Normal 47-70 [facility] Comment on above: Order Comment: 109.1 Performed By: #### L 100.0100 ####[facility] [address] [place], [address] Nucleated RBC (Bld) [#/Vol] 0 10*3/uL Normal 0-5 [facility] Comment on above: Order Comment: 109.1 Performed By: #### L 100.0100 ####[facility] [address] [place], [address] Platelet mean volume (Bld) [Entitic vol] 10.9 fL Normal 6.2-12.0 [facility] Comment on above: Order Comment: 109.1 Performed By: #### L 100.0100 ####[facility] [address] [place], [address] Platelets (Bld) [#/Vol] 192 10*3/uL Normal 150-450 [facility] Comment on above: Order Comment: 109.1 Performed By: #### L 100.0100 ####[facility] [address] [place], [address] RBC (Bld) [#/Vol] 4.96 10*6/uL Normal 4.6-6.2 [facility] Comment on above: Order Comment: 109.1 Performed By: #### L 100.0100 ####[facility] [address] [place], [address] RDW SD 44.6 fl High 35.1-43.9 [facility] Comment on above: Order Comment: 109.1 Performed By: #### L 100.0100 ####[facility] [address] [place], [address] WBC (Bld) [#/Vol] 8.2 10*3/uL Normal 4.4-11.0 [facility] Comment on above: Order Comment: 109.1 Performed By: #### L 100.0100 ####[facility] [address] [place], [address] CBC W/Diff, Automatedon 09- Absolute Lymph 1.62 X10 3/uL Normal 0.83-4.51 [facility] Comment on above: Order Comment: 109-1 Performed By: #### L 100.0100 ####[facility] [address] [place], [address] Absolute Neut 8.1 X10 3/uL High 2.0-7.7 [facility] Comment on above: Order Comment: 109-1 Performed By: #### L 100.0100 ####[facility] [address] [place], [address] Basophils/100 WBC (Bld) 0.4 % Normal 0-1 [facility] Comment on above: Order Comment: 109-1 Performed By: #### L 100.0100 ####[facility] [address] [place], [address] Eosinophils/100 WBC (Bld) 0.1 % Normal 0-5 [facility] Comment on above: Order Comment: 109-1 Performed By: #### L 100.0100 ####[facility] [address] [place], [address] Erythrocyte distribution width (RBC) [Ratio] 12.9 % Normal 11.6-14.6 [facility] Comment on above: Order Comment: 109-1 Performed By: #### L 100.0100 ####[facility] [address] [place], [address] Hematocrit (Bld) [Volume fraction] 41.9 % Normal 40-54 [facility] Comment on above: Order Comment: 109-1 Performed By: #### L 100.0100 ####[facility] [address] [place], [address] Hemoglobin (Bld) [Mass/Vol] 13.5 g/dL Normal 13.0-16.5 [facility] Comment on above: Order Comment: 109-1 Performed By: #### L 100.0100 ####[facility] [address] [place], [address] IG% 0.400 Normal 0.0-0.9 [facility] Comment on above: Order Comment: 109-1 Result Comment: IG% - Immature Granulocytes (promyelocytes, myelocytes andmetamyelocytes) > 1% indicates that a LEFT SHIFT is Present. Performed By: #### L 100.0100 ####[facility] [address] [place], [address] Lymphocytes/100 WBC (Bld) 15.2 % Low 19-41 [facility] Comment on above: Order Comment: 109-1 Performed By: #### L 100.0100 ####[facility] [address] [place], [address] MCH (RBC) [Entitic mass] 29.3 pg Normal 27.0-32.0 [facility] Comment on above: Order Comment: 109-1 Performed By: #### L 100.0100 ####[facility] [address] [place], [address] MCHC (RBC) [Mass/Vol] 32.2 g/dL Normal 32-36 [facility] Comment on above: Order Comment: 109-1 Performed By: #### L 100.0100 ####[facility] [address] [place], [address] MCV (RBC) [Entitic vol] 90.9 fL Normal 80-94 [facility] Comment on above: Order Comment: 109-1 Performed By: #### L 100.0100 ####[facility] [address] [place], [address] Monocytes/100 WBC (Bld) 7.4 % Normal 0-10 [facility] Comment on above: Order Comment: 109-1 Performed By: #### L 100.0100 ####[facility] [address] [place], [address] Neutrophils/100 WBC (Bld) 76.5 % High 47-70 [facility] Comment on above: Order Comment: 109-1 Performed By: #### L 100.0100 ####[facility] [address] [place], [address] Nucleated RBC (Bld) [#/Vol] 0 10*3/uL Normal 0-5 [facility] Comment on above: Order Comment: 109-1 Performed By: #### L 100.0100 ####[facility] [address] [place], [address] Platelet mean volume (Bld) [Entitic vol] 11.2 fL Normal 6.2-12.0 [facility] Comment on above: Order Comment: 109-1 Performed By: #### L 100.0100 ####[facility] [address] [place], [address] Platelets (Bld) [#/Vol] 220 10*3/uL Normal 150-450 [facility] [facility] Comment on above: Order Comment: 109-1 Performed By: #### L 100.0100 ####[facility] [address] [place], [address] RBC (Bld) [#/Vol] 4.61 10*6/uL Normal 4.6-6.2 [facility] Comment on above: Order Comment: 109-1 Performed By: #### L 100.0100 ####[facility] [address] [place], [address] RDW SD 42.1 fl Normal 35.1-43.9 [facility] Comment on above: Order Comment: 109-1 Performed By: #### L 100.0100 ####[facility] [address] [place], [address] WBC (Bld) [#/Vol] 10.6 10*3/uL Normal 4.4-11.0 [facility] Comment on above: Order Comment: 109-1 Performed By: #### L 100.0100 ####[facility] [address] [place], [address] CBC W/Diff, Automatedon - Absolute Lymph 2.15 X10 3/uL Normal 0.83-4.51 [facility] Comment on above: Order Comment: 109-1 Performed By: #### L 100.0100 ####[facility] [address] [place], [address] Absolute Neut 5.4 X10 3/uL Normal 2.0-7.7 [facility] Comment on above: Order Comment: 109-1 Performed By: #### L 100.0100 ####[facility] [address] [place], [address] Basophils/100 WBC (Bld) 0.7 % Normal 0-1 [facility] Comment on above: Order Comment: 109-1 Performed By: #### L 100.0100 ####[facility] [address] [place], [address] Eosinophils/100 WBC (Bld) 0.7 % Normal 0-5 [facility] Comment on above: Order Comment: 109-1 Performed By: #### L 100.0100 ####[facility] [address] [place], [address] Erythrocyte distribution width (RBC) [Ratio] 13.1 % Normal 11.6-14.6 [facility] Comment on above: Order Comment: 109-1 Performed By: #### L 100.0100 ####[facility] [address] [place], [address] Hematocrit (Bld) [Volume fraction] 44.1 % Normal 40-54 [facility] Comment on above: Order Comment: 109-1 Performed By: #### L 100.0100 ####[facility] [address] [place], [address] Hemoglobin (Bld) [Mass/Vol] 14.2 g/dL Normal 13.0-16.5 [facility] Comment on above: Order Comment: 109-1 Performed By: #### L 100.0100 ####[facility] [address] [place], [address] IG% 0.400 Normal 0.0-0.9 [facility] Comment on above: Order Comment: 109-1 Result Comment: IG% - Immature Granulocytes (promyelocytes, myelocytes andmetamyelocytes) > 1% indicates that a LEFT SHIFT is Present. Performed By: #### L 100.0100 ####[facility] [address] [place], [address] Lymphocytes/100 WBC (Bld) 25.7 % Normal 19-41 [facility] Comment on above: Order Comment: 109-1 Performed By: #### L 100.0100 ####[facility] [address] [place], [address] MCH (RBC) [Entitic mass] 29.5 pg Normal 27.0-32.0 [facility] Comment on above: Order Comment: 109-1 Performed By: #### L 100.0100 ####[facility] [address] [place], [address] MCHC (RBC) [Mass/Vol] 32.2 g/dL Normal 32-36 [facility] Comment on above: Order Comment: 109-1 Performed By: #### L 100.0100 ####[facility] [address] [place], [address] MCV (RBC) [Entitic vol] 91.7 fL Normal 80-94 [facility] Comment on above: Order Comment: 109-1 Performed By: #### L 100.0100 ####[facility] [address] [place], [address] Monocytes/100 WBC (Bld) 7.5 % Normal 0-10 [facility] Comment on above: Order Comment: 109-1 Performed By: #### L 100.0100 ####[facility] [address] [place], [address] Neutrophils/100 WBC (Bld) 65.0 % Normal 47-70 [facility] Comment on above: Order Comment: 109-1 Performed By: #### L 100.0100 ####[facility] [address] [place], [address] Nucleated RBC (Bld) [#/Vol] 0 10*3/uL Normal 0-5 [facility] Comment on above: Order Comment: 109-1 Performed By: #### L 100.0100 ####[facility] [address] [place], [address] Platelet mean volume (Bld) [Entitic vol] 11.1 fL Normal 6.2-12.0 [facility] Comment on above: Order Comment: 109-1 Performed By: #### L 100.0100 ####[facility] [address] [place], [address] Platelets (Bld) [#/Vol] 200 10*3/uL Normal 150-450 [facility] Comment on above: Order Comment: 109-1 Performed By: #### L 100.0100 ####[facility] [address] [place], [address] RBC (Bld) [#/Vol] 4.81 10*6/uL Normal 4.6-6.2 [facility] Comment on above: Order Comment: 109-1 Performed By: #### L 100.0100 ####[facility] [address] [place], [address] RDW SD 44.1 fl High 35.1-43.9 [facility] Comment on above: Order Comment: 109-1 Performed By: #### L 100.0100 ####[facility] [address] [place], [address] WBC (Bld) [#/Vol] 8.4 10*3/uL Normal 4.4-11.0 [facility] Comment on above: Order Comment: 109-1 Performed By: #### L 100.0100 ####[facility] [address] [place], [address] CBC W/Diff, Automatedon 09-0 9-2023 Absolute Lymph 3.20 X10 3/uL Normal 0.83-4.51 [facility] Comment on above: Order Comment: 109-1 Performed By: #### L 100.0100 ####[facility] [address] [place], [address] Absolute Neut 5.5 X10 3/uL Normal 2.0-7.7 [facility] Comment on above: Order Comment: 109-1 Performed By: #### L 100.0100 ####[facility] [address] [place], [address] Basophils/100 WBC (Bld) 0.5 % Normal 0-1 [facility] Comment on above: Order Comment: 109-1 Performed By: #### L 100.0100 ####[facility] [address] [place], [address] Eosinophils/100 WBC (Bld) 0.6 % Normal 0-5 [facility] Comment on above: Order Comment: 109-1 Performed By: #### L 100.0100 ####[facility] [address] [place], [address] Erythrocyte distribution width (RBC) [Ratio] 13.2 % Normal 11.6-14.6 [facility] Comment on above: Order Comment: 109-1 Performed By: #### L 100.0100 ####[facility] [address] [place], [address] Hematocrit (Bld) [Volume fraction] 44.3 % Normal 40-54 [facility] Comment on above: Order Comment: 109-1 Performed By: #### L 100.0100 ####[facility] [address] [place], [address] Hemoglobin (Bld) [Mass/Vol] 14.4 g/dL Normal 13.0-16.5 [facility] Comment on above: Order Comment: 109-1 Performed By: #### L 100.0100 ####[facility] [address] [place], [address] IG% 0.400 Normal 0.0-0.9 [facility] Comment on above: Order Comment: 109-1 Result Comment: IG% - Immature Granulocytes (promyelocytes, myelocytes andmetamyelocytes) > 1% indicates that a LEFT SHIFT is Present. Performed By: #### L 100.0100 ####[facility] [address] [place], [address] Lymphocytes/100 WBC (Bld) 31.4 % Normal 19-41 [facility] Comment on above: Order Comment: 109-1 Performed By: #### L 100.0100 ####[facility] [address] [place], [address] MCH (RBC) [Entitic mass] 29.8 pg Normal 27.0-32.0 [facility] Comment on above: Order Comment: 109-1 Performed By: #### L 100.0100 ####[facility] [address] [place], [address] MCHC (RBC) [Mass/Vol] 32.5 g/dL Normal 32-36 [facility] Comment on above: Order Comment: 109-1 Performed By: #### L 100.0100 ####[facility] [address] [place], [address] MCV (RBC) [Entitic vol] 91.7 fL Normal 80-94 [facility] Comment on above: Order Comment: 109-1 Performed By: #### L 100.0100 ####[facility] [address] [place], [address] Monocytes/100 WBC (Bld) 12.8 % High 0-10 [facility] Comment on above: Order Comment: 109-1 Performed By: #### L 100.0100 ####[facility] [address] [place], [address] Neutrophils/100 WBC (Bld) 54.3 % Normal 47-70 [facility] Comment on above: Order Comment: 109-1 Performed By: #### L 100.0100 ####[facility] [address] [place], [address] Nucleated RBC (Bld) [#/Vol] 0 10*3/uL Normal 0-5 [facility] Comment on above: Order Comment: 109-1 Performed By: #### L 100.0100 ####[facility] [address] [place], [address] Platelet mean volume (Bld) [Entitic vol] 11.9 fL Normal 6.2-12.0 [facility] Comment on above: Order Comment: 109-1 Performed By: #### L 100.0100 ####[facility] [address] [place], [address] Platelets (Bld) [#/Vol] 187 10*3/uL Normal 150-450 [facility] Comment on above: Order Comment: 109-1 Performed By: #### L 100.0100 ####[facility] [address] [place], [address] RBC (Bld) [#/Vol] 4.83 10*6/uL Normal 4.6-6.2 [facility] Comment on above: Order Comment: 109-1 Performed By: #### L 100.0100 ####[facility] [address] [place], [address] RDW SD 44.3 fl High 35.1-43.9 [facility] Comment on above: Order Comment: 109-1 Performed By: #### L 100.0100 ####[facility] [address] [place], [address] WBC (Bld) [#/Vol] 10.2 10*3/uL Normal 4.4-11.0 [facility] Comment on above: Order Comment: 109-1 Performed By: #### L 100.0100 ####[facility] [address] [place], [address] CBC W/Diff, Automatedon 09-0 -2023 Absolute Lymph 2.57 X10 3/uL Normal 0.83-4.51 [facility] Comment on above: Order Comment: 109-1 Performed By: #### L 100.0100, L500.4100 ####[facility] [address] [place], [address] Absolute Neut 5.9 X10 3/uL Normal 2.0-7.7 [facility] Comment on above: Order Comment: 109-1 Performed By: #### L 100.0100, L500.4100 ####[facility] [address] [place], [address] Basophils/100 WBC (Bld) 0.5 % Normal 0-1 [facility] Comment on above: Order Comment: 109-1 Performed By: #### L 100.0100, L500.4100 ####[facility] [address] [place], [address] Eosinophils/100 WBC (Bld) 0.4 % Normal 0-5 [facility] Comment on above: Order Comment: 109-1 Performed By: #### L 100.0100, L500.4100 ####[facility] [address] [place], [address] Erythrocyte distribution width (RBC) [Ratio] 13.1 % Normal 11.6-14.6 [facility] Comment on above: Order Comment: 109-1 Performed By: #### L 100.0100, L500.4100 ####[facility] [address] [place], [address] Hematocrit (Bld) [Volume fraction] 40.6 % Normal 40-54 [facility] Comment on above: Order Comment: 109-1 Performed By: #### L 100.0100, L500.4100 ####[facility] [address] [place], [address] Hemoglobin (Bld) [Mass/Vol] 13.3 g/dL Normal 13.0-16.5 [facility] Comment on above: Order Comment: 109-1 Performed By: #### L 100.0100, L500.4100 ####[facility] [address] [place], [address] IG% 0.300 Normal 0.0-0.9 [facility] Comment on above: Order Comment: 109-1 Result Comment: IG% - Immature Granulocytes (promyelocytes, myelocytes andmetamyelocytes) > 1% indicates that a LEFT SHIFT is Present. Performed By: #### L 100.0100, L500.4100 ####[facility] [address] [place], [address] Lymphocytes/100 WBC (Bld) 27.0 % Normal 19-41 [facility] Comment on above: Order Comment: 109-1 Performed By: #### L 100.0100, L500.4100 ####[facility] [address] [place], [address] MCH (RBC) [Entitic mass] 30.2 pg Normal 27.0-32.0 [facility] Comment on above: Order Comment: 109-1 Performed By: #### L 100.0100, L500.4100 ####[facility] [address] [place], [address] MCHC (RBC) [Mass/Vol] 32.8 g/dL Normal 32-36 [facility] Comment on above: Order Comment: 109-1 Performed By: #### L 100.0100, L500.4100 ####[facility] [address] [place], [address] MCV (RBC) [Entitic vol] 92.3 fL Normal 80-94 [facility] Comment on above: Order Comment: 109-1 Performed By: #### L 100.0100, L500.4100 ####[facility] [address] [place], [address] Monocytes/100 WBC (Bld) 9.7 % Normal 0-10 [facility] Comment on above: Order Comment: 109-1 Performed By: #### L 100.0100, L500.4100 ####[facility] [address] [place], [address] Neutrophils/100 WBC (Bld) 62.1 % Normal 47-70 [facility] Comment on above: Order Comment: 109-1 Performed By: #### L 100.0100, L500.4100 ####[facility] [address] [place], [address] Nucleated RBC (Bld) [#/Vol] 0 10*3/uL Normal 0-5 [facility] Comment on above: Order Comment: 109-1 Performed By: #### L 100.0100, L500.4100 ####[facility] [address] [place], [address] Platelet mean volume (Bld) [Entitic vol] 12.1 fL High 6.2-12.0 [facility] Comment on above: Order Comment: 109-1 Performed By: #### L 100.0100, L500.4100 ####[facility] [address] [place], [address] Platelets (Bld) [#/Vol] 172 10*3/uL Normal 150-450 [facility] Comment on above: Order Comment: 109-1 Performed By: #### L 100.0100, L500.4100 ####[facility] [address] [place], [address] RBC (Bld) [#/Vol] 4.40 10*6/uL Low 4.6-6.2 [facility] Comment on above: Order Comment: 109-1 Performed By: #### L 100.0100, L500.4100 ####[facility] [address] [place], [address] RDW SD 44.0 fl High 35.1-43.9 [facility] Comment on above: Order Comment: 109-1 Performed By: #### L 100.0100, L500.4100 ####[facility] [address] [place], [address] WBC (Bld) [#/Vol] 9.5 10*3/uL Normal 4.4-11.0 [facility] Comment on above: Order Comment: 109-1 Performed By: #### L 100.0100, L500.4100 ####[facility] [address] [place], [address] Lipid Profileon 01-02-2024 Cholesterol [Mass/Vol] 115 mg/dL Normal 200 [facility] Comment on above: Order Comment: 109-1 Result Comment: <200 mg/dL Desirable 200-240 mg/dL Borderline >240 mg/dL High Risk Performed By: #### L 100.0100, L500.4100 ####[facility] [address] [place], [address] Cholesterol in HDL [Mass/Vol] 24 mg/dL Low [facility] Comment on above: Order Comment: 109-1 Result Comment: The drugs N-Acetylcysteine and Metamizole may falselydepress this assay. Reference Range HDL <40 mg/dL Low HDL Cholesterol HDL >or= 60 mg/dL High HDL Cholesterol Performed By: #### L 100.0100, L500.4100 ####[facility] [address] [place], [address] Cholesterol in LDL [Mass/Vol] 37 mg/dL Normal 0-130 [facility] Comment on above: Order Comment: 109-1 Performed By: #### L 100.0100, L500.4100 ####[facility] [address] [place], [address] Cholesterol in VLDL [Mass/Vol] 54 mg/dL High 5-40 [facility] Comment on above: Order Comment: 109-1 Performed By: #### L 100.0100, L500.4100 ####[facility] [address] [place], [address] Triglyceride [Mass/Vol] 271 mg/dL High [facility] Comment on above: Order Comment: 109- Result Comment: The drugs N-Acetylcysteine and Metamizole may falselydepress this assay.Serum Triglycerides Reference Interval Normal <150 mg/dL Borderline high 150 - 199 mg/dL High 200 - 499 mg/dL Very High > or = 500 mg/dL Performed By: #### L 100.0100, L500.4100 ####[facility] [address] [place], [address] CBC W/Diff, Automatedon -2 Absolute Lymph 2.51 X10 3/uL Normal 0.83-4.51 [facility] Comment on above: Order Comment: 109.1 Performed By: #### L 100.0100 ####[facility] [address] [place], [address] Absolute Neut 4.1 X10 3/uL Normal 2.0-7.7 [facility] Comment on above: Order Comment: 109.1 Performed By: #### L 100.0100 ####[facility] [address] [place], [address] Basophils/100 WBC (Bld) 0.5 % Normal 0-1 [facility] Comment on above: Order Comment: 109.1 Performed By: #### L 100.0100 ####[facility] [address] [place], [address] Eosinophils/100 WBC (Bld) 0.8 % Normal 0-5 [facility] Comment on above: Order Comment: 109.1 Performed By: #### L 100.0100 ####[facility] [address] [place], [address] Erythrocyte distribution width (RBC) [Ratio] 13.1 % Normal 11.6-14.6 [facility] Comment on above: Order Comment: 109.1 Performed By: #### L 100.0100 ####[facility] [address] [place], [address] Hematocrit (Bld) [Volume fraction] 40.5 % Normal 40-54 [facility] Comment on above: Order Comment: 109.1 Performed By: #### L 100.0100 ####[facility] [address] [place], [address] Hemoglobin (Bld) [Mass/Vol] 12.9 g/dL Low 13.0-16.5 [facility] Comment on above: Order Comment: 109.1 Performed By: #### L 100.0100 ####[facility] [address] [place], [address] IG% 0.400 Normal 0.0-0.9 [facility] Comment on above: Order Comment: 109.1 Result Comment: IG% - Immature Granulocytes (promyelocytes, myelocytes andmetamyelocytes) > 1% indicates that a LEFT SHIFT is Present. Performed By: #### L 100.0100 ####[facility] [address] [place], [address] Lymphocytes/100 WBC (Bld) 33.5 % Normal 19-41 [facility] Comment on above: Order Comment: 109.1 Performed By: #### L 100.0100 ####[facility] [address] [place], [address] MCH (RBC) [Entitic mass] 29.3 pg Normal 27.0-32.0 [facility] Comment on above: Order Comment: 109.1 Performed By: #### L 100.0100 ####[facility] [address] [place], [address] MCHC (RBC) [Mass/Vol] 31.9 g/dL Low 32-36 [facility] Comment on above: Order Comment: 109.1 Performed By: #### L 100.0100 ####[facility] [address] [place], [address] MCV (RBC) [Entitic vol] 92.0 fL Normal 80-94 [facility] Comment on above: Order Comment: 109.1 Performed By: #### L 100.0100 ####[facility] [address] [place], [address] Monocytes/100 WBC (Bld) 10.7 % High 0-10 [facility] Comment on above: Order Comment: 109.1 Performed By: #### L 100.0100 ####[facility] [address] [place], [address] Neutrophils/100 WBC (Bld) 54.1 % Normal 47-70 [facility] Comment on above: Order Comment: 109.1 Performed By: #### L 100.0100 ####[facility] [address] [place], [address] Nucleated RBC (Bld) [#/Vol] 0 10*3/uL Normal 0-5 [facility] Comment on above: Order Comment: 109.1 Performed By: #### L 100.0100 ####[facility] [address] [place], [address] Platelet mean volume (Bld) [Entitic vol] 10.8 fL Normal 6.2-12.0 [facility] Comment on above: Order Comment: 109.1 Performed By: #### L 100.0100 ####[facility] [address] [place], [address] Platelets (Bld) [#/Vol] 193 10*3/uL Normal 150-450 [facility] Comment on above: Order Comment: 109.1 Performed By: #### L 100.0100 ####[facility] [address] [place], [address] RBC (Bld) [#/Vol] 4.40 10*6/uL Low 4.6-6.2 [facility] Comment on above: Order Comment: 109.1 Performed By: #### L 100.0100 ####[facility] [address] [place], [address] RDW SD 44.0 fl High 35.1-43.9 [facility] Comment on above: Order Comment: 109.1 Performed By: #### L 100.0100 ####[facility] [address] [place], [address] WBC (Bld) [#/Vol] 7.5 10*3/uL Normal 4.4-11.0 [facility] Comment on above: Order Comment: 109.1 Performed By: #### L 100.0100 ####[facility] [address] [place], [address] CBC W/Diff, Automatedon 11-29 Absolute Lymph 2.38 X10 3/uL Normal 0.83-4.51 [facility] Comment on above: Order Comment: 109-1 Performed By: #### L 100.0100 ####[facility] [address] [place], [address] Absolute Neut 5.2 X10 3/uL Normal 2.0-7.7 [facility] Comment on above: Order Comment: 109-1 Performed By: #### L 100.0100 ####[facility] [address] [place], [address] Basophils/100 WBC (Bld) 0.4 % Normal 0-1 [facility] Comment on above: Order Comment: 109-1 Performed By: #### L 100.0100 ####[facility] [address] [place], [address] Eosinophils/100 WBC (Bld) 0.7 % Normal 0-5 [facility] Comment on above: Order Comment: 109-1 Performed By: #### L 100.0100 ####[facility] [address] [place], [address] Erythrocyte distribution width (RBC) [Ratio] 12.8 % Normal 11.6-14.6 [facility] Comment on above: Order Comment: 109-1 Performed By: #### L 100.0100 ####[facility] [address] [place], [address] Hematocrit (Bld) [Volume fraction] 48.0 % Normal 40-54 [facility] Comment on above: Order Comment: 109-1 Performed By: #### L 100.0100 ####[facility] [address] [place], [address] Hemoglobin (Bld) [Mass/Vol] 15.3 g/dL Normal 13.0-16.5 [facility] Comment on above: Order Comment: 109-1 Performed By: #### L 100.0100 ####[facility] [address] [place], [address] IG% 0.200 Normal 0.0-0.9 [facility] Comment on above: Order Comment: 109-1 Result Comment: IG% - Immature Granulocytes (promyelocytes, myelocytes andmetamyelocytes) > 1% indicates that a LEFT SHIFT is Present. Performed By: #### L 100.0100 ####[facility] [address] [place], [address] Lymphocytes/100 WBC (Bld) 28.5 % Normal 19-41 [facility] Comment on above: Order Comment: 109-1 Performed By: #### L 100.0100 ####[facility] [address] [place], [address] MCH (RBC) [Entitic mass] 29.4 pg Normal 27.0-32.0 [facility] Comment on above: Order Comment: 109-1 Performed By: #### L 100.0100 ####[facility] [address] [place], [address] MCHC (RBC) [Mass/Vol] 31.9 g/dL Low 32-36 [facility] Comment on above: Order Comment: 109-1 Performed By: #### L 100.0100 ####[facility] [address] [place], [address] MCV (RBC) [Entitic vol] 92.3 fL Normal 80-94 [facility] Comment on above: Order Comment: 109-1 Performed By: #### L 100.0100 ####[facility] [address] [place], [address] Monocytes/100 WBC (Bld) 8.4 % Normal 0-10 [facility] Comment on above: Order Comment: 109-1 Performed By: #### L 100.0100 ####[facility] [address] [place], [address] Neutrophils/100 WBC (Bld) 61.8 % Normal 47-70 [facility] Comment on above: Order Comment: 109-1 Performed By: #### L 100.0100 ####[facility] [address] [place], [address] Nucleated RBC (Bld) [#/Vol] 0 10*3/uL Normal 0-5 [facility] Comment on above: Order Comment: 109-1 Performed By: #### L 100.0100 ####[facility] [address] [place], [address] Platelet mean volume (Bld) [Entitic vol] 11.6 fL Normal 6.2-12.0 [facility] Comment on above: Order Comment: 109-1 Performed By: #### L 100.0100 ####[facility] [address] [place], [address] Platelets (Bld) [#/Vol] 183 10*3/uL Normal 150-450 [facility] Comment on above: Order Comment: 109-1 Performed By: #### L 100.0100 ####[facility] [address] [place], [address] RBC (Bld) [#/Vol] 5.20 10*6/uL Normal 4.6-6.2 [facility] Comment on above: Order Comment: 109-1 Performed By: #### L 100.0100 ####[facility] [address] [place], [address] RDW SD 43.5 fl Normal 35.1-43.9 [facility] Comment on above: Order Comment: 109-1 Performed By: #### L 100.0100 ####[facility] [address] [place], [address] WBC (Bld) [#/Vol] 8.3 10*3/uL Normal 4.4-11.0 [facility] Comment on above: Order Comment: 109-1 Performed By: #### L 100.0100 ####[facility] [address] [place], [address] CBC W/Diff, Automatedon 11-29 Absolute Lymph 2.03 X10 3/uL Normal 0.83-4.51 [facility] Comment on above: Order Comment: 109-1 Performed By: #### L 100.0100 ####[facility] [address] [place], [address] Absolute Neut 5.7 X10 3/uL Normal 2.0-7.7 [facility] Comment on above: Order Comment: 109-1 Performed By: #### L 100.0100 ####[facility] [address] [place], [address] Basophils/100 WBC (Bld) 0.6 % Normal 0-1 [facility] Comment on above: Order Comment: 109-1 Performed By: #### L 100.0100 ####[facility] [address] [place], [address] Eosinophils/100 WBC (Bld) 0.6 % Normal 0-5 [facility] Comment on above: Order Comment: 109-1 Performed By: #### L 100.0100 ####[facility] [address] [place], [address] Erythrocyte distribution width (RBC) [Ratio] 12.8 % Normal 11.6-14.6 [facility] Comment on above: Order Comment: 109-1 Performed By: #### L 100.0100 ####[facility] [address] [place], [address] Hematocrit (Bld) [Volume fraction] 39.9 % Low 40-54 [facility] Comment on above: Order Comment: 109-1 Performed By: #### L 100.0100 ####[facility] [address] [place], [address] Hemoglobin (Bld) [Mass/Vol] 12.8 g/dL Low 13.0-16.5 [facility] Comment on above: Order Comment: 109-1 Performed By: #### L 100.0100 ####[facility] [address] [place], [address] IG% 0.400 Normal 0.0-0.9 [facility] Comment on above: Order Comment: 109-1 Result Comment: IG% - Immature Granulocytes (promyelocytes, myelocytes andmetamyelocytes) > 1% indicates that a LEFT SHIFT is Present. Performed By: #### L 100.0100 ####[facility] [address] [place], [address] Lymphocytes/100 WBC (Bld) 23.9 % Normal 19-41 [facility] Comment on above: Order Comment: 109-1 Performed By: #### L 100.0100 ####[facility] [address] [place], [address] MCH (RBC) [Entitic mass] 29.4 pg Normal 27.0-32.0 [facility] Comment on above: Order Comment: 109-1 Performed By: #### L 100.0100 ####[facility] [address] [place], [address] MCHC (RBC) [Mass/Vol] 32.1 g/dL Normal 32-36 [facility] Comment on above: Order Comment: 109-1 Performed By: #### L 100.0100 ####[facility] [address] [place], [address] MCV (RBC) [Entitic vol] 91.7 fL Normal 80-94 [facility] Comment on above: Order Comment: 109-1 Performed By: #### L 100.0100 ####[facility] [address] [place], [address] Monocytes/100 WBC (Bld) 7.8 % Normal 0-10 [facility] Comment on above: Order Comment: 109-1 Performed By: #### L 100.0100 ####[facility] [address] [place], [address] Neutrophils/100 WBC (Bld) 66.7 % Normal 47-70 [facility] Comment on above: Order Comment: 109-1 Performed By: #### L 100.0100 ####[facility] [address] [place], [address] Nucleated RBC (Bld) [#/Vol] 0 10*3/uL Normal 0-5 [facility] Comment on above: Order Comment: 109-1 Performed By: #### L 100.0100 ####[facility] [address] [place], [address] Platelet mean volume (Bld) [Entitic vol] 11.1 fL Normal 6.2-12.0 [facility] Comment on above: Order Comment: 109-1 Performed By: #### L 100.0100 ####[facility] [address] [place], [address] Platelets (Bld) [#/Vol] 204 10*3/uL Normal 150-450 [facility] Comment on above: Order Comment: 109-1 Performed By: #### L 100.0100 ####[facility] [address] [place], [address] RBC (Bld) [#/Vol] 4.35 10*6/uL Low 4.6-6.2 [facility] Comment on above: Order Comment: 109-1 Performed By: #### L 100.0100 ####[facility] [address] [place], [address] RDW SD 43.2 fl Normal 35.1-43.9 [facility] Comment on above: Order Comment: 109-1 Performed By: #### L 100.0100 ####[facility] [address] [place], [address] WBC (Bld) [#/Vol] 8.5 10*3/uL Normal 4.4-11.0 [facility] Comment on above: Order Comment: 109-1 Performed By: #### L 100.0100 ####[facility] [address] [place], [address] CBC-Complete Blood Cnt No Di ffon 12-04-2023 Erythrocyte distribution width (RBC) [Ratio] 12.8 % Normal 11.6-14.6 [facility] Comment on above: Order Comment: 109.1 Performed By: #### L 100.0500 ####[facility] [address] [place], [address] Hematocrit (Bld) [Volume fraction] 41.0 % Normal 40-54 [facility] Comment on above: Order Comment: 109.1 Performed By: #### L 100.0500 ####[facility] [address] [place], [address] Hemoglobin (Bld) [Mass/Vol] 13.4 g/dL Normal 13.0-16.5 [facility] Comment on above: Order Comment: 109.1 Performed By: #### L 100.0500 ####[facility] [address] [place], [address] MCH (RBC) [Entitic mass] 30.0 pg Normal 27.0-32.0 [facility] Comment on above: Order Comment: 109.1 Performed By: #### L 100.0500 ####[facility] [address] [place], [address] MCHC (RBC) [Mass/Vol] 32.7 g/dL Normal 32-36 [facility] Comment on above: Order Comment: 109.1 Performed By: #### L 100.0500 ####[facility] [address] [place], [address] MCV (RBC) [Entitic vol] 91.7 fL Normal 80-94 [facility] Comment on above: Order Comment: 109.1 Performed By: #### L 100.0500 ####[facility] [address] [place], [address] Platelet mean volume (Bld) [Entitic vol] 10.8 fL Normal 6.2-12.0 [facility] Comment on above: Order Comment: 109.1 Performed By: #### L 100.0500 ####[facility] [address] [place], [address] Platelets (Bld) [#/Vol] 219 10*3/uL Normal 150-450 [facility] Comment on above: Order Comment: 109.1 Performed By: #### L 100.0500 ####[facility] [address] [place], [address] RBC (Bld) [#/Vol] 4.47 10*6/uL Low 4.6-6.2 [facility] Comment on above: Order Comment: 109.1 Performed By: #### L 100.0500 ####[facility] [address] [place], [address] RDW SD 43.0 fl Normal 35.1-43.9 [facility] Comment on above: Order Comment: 109.1 Performed By: #### L 100.0500 ####[facility] [address] [place], [address] WBC (Bld) [#/Vol] 7.6 10*3/uL Normal 4.4-11.0 [facility] Comment on above: Order Comment: 109.1 Performed By: #### L 100.0500 ####[facility] [address] [place], [address] CBC W/Diff, Automatedon 10-30 Absolute Lymph 1.72 X10 3/uL Normal 0.83-4.51 [facility] Comment on above: Order Comment: 109.1 Performed By: #### L 100.0100 ####[facility] [address] [place], [address] Absolute Neut 4.3 X10 3/uL Normal 2.0-7.7 [facility] Comment on above: Order Comment: 109.1 Performed By: #### L 100.0100 ####[facility] [address] [place], [address] Basophils/100 WBC (Bld) 0.4 % Normal 0-1 [facility] Comment on above: Order Comment: 109.1 Performed By: #### L 100.0100 ####[facility] [address] [place], [address] Eosinophils/100 WBC (Bld) 0.6 % Normal 0-5 [facility] Comment on above: Order Comment: 109.1 Performed By: #### L 100.0100 ####[facility] [address] [place], [address] Erythrocyte distribution width (RBC) [Ratio] 13.0 % Normal 11.6-14.6 [facility] Comment on above: Order Comment: 109.1 Performed By: #### L 100.0100 ####[facility] [address] [place], [address] Hematocrit (Bld) [Volume fraction] 40.8 % Normal 40-54 [facility] Comment on above: Order Comment: 109.1 Performed By: #### L 100.0100 ####[facility] [address] [place], [address] Hemoglobin (Bld) [Mass/Vol] 13.2 g/dL Normal 13.0-16.5 [facility] Comment on above: Order Comment: 109.1 Performed By: #### L 100.0100 ####[facility] [address] [place], [address] IG% 0.300 Normal 0.0-0.9 [facility] Comment on above: Order Comment: 109.1 Result Comment: IG% - Immature Granulocytes (promyelocytes, myelocytes andmetamyelocytes) > 1% indicates that a LEFT SHIFT is Present. Performed By: #### L 100.0100 ####[facility] [address] [place], [address] Lymphocytes/100 WBC (Bld) 25.8 % Normal 19-41 [facility] Comment on above: Order Comment: 109.1 Performed By: #### L 100.0100 ####[facility] [address] [place], [address] MCH (RBC) [Entitic mass] 29.7 pg Normal 27.0-32.0 [facility] Comment on above: Order Comment: 109.1 Performed By: #### L 100.0100 ####[facility] [address] [place], [address] MCHC (RBC) [Mass/Vol] 32.4 g/dL Normal 32-36 [facility] Comment on above: Order Comment: 109.1 Performed By: #### L 100.0100 ####[facility] [address] [place], [address] MCV (RBC) [Entitic vol] 91.7 fL Normal 80-94 [facility] Comment on above: Order Comment: 109.1 Performed By: #### L 100.0100 ####[facility] [address] [place], [address] Monocytes/100 WBC (Bld) 9.0 % Normal 0-10 [facility] Comment on above: Order Comment: 109.1 Performed By: #### L 100.0100 ####[facility] [address] [place], [address] Neutrophils/100 WBC (Bld) 63.9 % Normal 47-70 [facility] Comment on above: Order Comment: 109.1 Performed By: #### L 100.0100 ####[facility] [address] [place], [address] Nucleated RBC (Bld) [#/Vol] 0 10*3/uL Normal 0-5 [facility] Comment on above: Order Comment: 109.1 Performed By: #### L 100.0100 ####[facility] [address] [place], [address] Platelet mean volume (Bld) [Entitic vol] 11.0 fL Normal 6.2-12.0 [facility] Comment on above: Order Comment: 109.1 Performed By: #### L 100.0100 ####[facility] [address] [place], [address] Platelets (Bld) [#/Vol] 196 10*3/uL Normal 150-450 [facility] Comment on above: Order Comment: 109.1 Performed By: #### L 100.0100 ####[facility] [address] [place], [address] RBC (Bld) [#/Vol] 4.45 10*6/uL Low 4.6-6.2 [facility] Comment on above: Order Comment: 109.1 Performed By: #### L 100.0100 ####[facility] [address] [place], [address] RDW SD 43.5 fl Normal 35.1-43.9 [facility] Comment on above: Order Comment: 109.1 Performed By: #### L 100.0100 ####[facility] [address] [place], [address] WBC (Bld) [#/Vol] 6.7 10*3/uL Normal 4.4-11.0 [facility] Comment on above: Order Comment: 109.1 Performed By: #### L 100.0100 ####[facility] [address] [place], [address] Progress Noteon 11-22-2023 Progress Note Speech-Language Pathology SPEECH LANGUAGE PATHOLOGY [facility] Modified Barium Swallow Study [...] despite effort. 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 Frequency: Per treating POWER SEWING MACHINE OPERATOR Barriers: large osteophytes, bridging with anterior projection [...] Prior MBSS?: No, unable to locate in [facility] Current Diet: Puree diet with ?liquid (no information from [employer]) Textures tested: - thin liquid, (cup edge) - mildly thick liquid, (cup edge) - puree, (teaspoon) Patient position: lateral Past Medical History: Past Medical History: Diagnosis Date TREVER (acute kidney injury) (CMS/HCC) ([facility]) Alcohol abuse 07/08/2018 Anxiety C1 spinal cord injury (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/HCC) ([facility]) 08/15/2018 Respiratory failure after trauma ([facility]) 08/15/2018 Pressure ulcer of sacral region, stage 2 ([facility]) 08/09/2018 Urinary retention 07/28/2018 Acute respiratory failure with hypoxia ([facility]) 07/26/2018 Mild bibasilar atelectasis 07/26/2018 Hospital-acquired pneumonia 07/26/2018 Bilateral pleural effusion 07/26/2018 Ileus (CMS/HCC) ([facility]) 07/23/2018 TREVER (acute kidney injury) ([facility]) 07/23/2018 Hypokalemia 07/21/2018 Vertebral artery occlusion, bilateral 07/11/2018 Vitamin D insufficiency 07/10/2018 Alcohol abuse 07/08/2018 Closed wedge compression fracture of first thoracic vertebra ([facility]) 07/08/2018 Traumatic nondisp spondylolisthesis of C3 vertebra with closed fx, initial encounter ([facility]) 07/08/2018 Closed fracture dislocation of cervical spine ([facility]) 07/08/2018 Pain: Pt denies any current pain. Reason for current admission: Pt with h/o of PEG and trach from 2019. Pt is currently decannulated. 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 Noted very large connective [...] posterior spill (more content not included)... [facility] RF videography Hypopharynx a nd Esophagus Views for swallowing function W speech and W barium contrast Rosalino 11-22-2023 Abnormal findings as described above. Please refer to the speech pathologist 's report for additional details and recommendations. Report Dictated on Electronically Signed By: Nir Cancino MD Electronically Signed Date/Time: 11/22/2023 1:57 PM [facility] Patient Name: KATHYA HOOPER : [...] not visualized in this exam for evaluation. [facility] Nir Cancino MD - 11/22/2023 [facility] Name: [facility] 1955 [id number] Exam Date/Time: 11/22/2023 12:53 Procedure: FL MODIFIED [...] Electronically Signed Date/Time: 11/22/2023 1:57 PM EDT [facility] Radiology Study observation (narrative) [facility] RF videography Hypopharynx a nd Esophagus Views for swallowing function W speech and W barium contrast POOrdered By: Nir Cancino on 11-22-2023 [facility] [employer] Work Phone: CBC W/Diff, Automatedon 10-30 Absolute Lymph 2.24 X10 3/uL Normal 0.83-4.51 [facility] Comment on above: Order Comment: 109-1 Performed By: #### L 100.0100 ####[facility] [address] [place], [address] Absolute Neut 5.7 X10 3/uL Normal 2.0-7.7 [facility] Comment on above: Order Comment: 109-1 Performed By: #### L 100.0100 ####[facility] [address] [place], [address] Basophils/100 WBC (Bld) 0.6 % Normal 0-1 [facility] Comment on above: Order Comment: 109-1 Performed By: #### L 100.0100 ####[facility] [address] [place], [address] Eosinophils/100 WBC (Bld) 0.5 % Normal 0-5 [facility] Comment on above: Order Comment: 109-1 Performed By: #### L 100.0100 ####[facility] [address] [place], [address] Erythrocyte distribution width (RBC) [Ratio] 13.1 % Normal 11.6-14.6 [facility] Comment on above: Order Comment: 109-1 Performed By: #### L 100.0100 ####[facility] [address] [place] [place], [address] Hematocrit (Bld) [Volume fraction] 41.5 % Normal 40-54 [facility] Comment on above: Order Comment: 109-1 Performed By: #### L 100.0100 ####[facility] [address] [place], [address] Hemoglobin (Bld) [Mass/Vol] 13.6 g/dL Normal 13.0-16.5 [facility] Comment on above: Order Comment: 109-1 Performed By: #### L 100.0100 ####[facility] [address] [place], [address] IG% 0.200 Normal 0.0-0.9 [facility] Comment on above: Order Comment: 109-1 Result Comment: IG% - Immature Granulocytes (promyelocytes, myelocytes andmetamyelocytes) > 1% indicates that a LEFT SHIFT is Present. Performed By: #### L 100.0100 ####[facility] [address] [place], [address] Lymphocytes/100 WBC (Bld) 25.5 % Normal 19-41 [facility] Comment on above: Order Comment: 109-1 Performed By: #### L 100.0100 ####[facility] [address] [place], [address] MCH (RBC) [Entitic mass] 30.0 pg Normal 27.0-32.0 [facility] Comment on above: Order Comment: 109-1 Performed By: #### L 100.0100 ####[facility] [address] [place], [address] MCHC (RBC) [Mass/Vol] 32.8 g/dL Normal 32-36 [facility] Comment on above: Order Comment: 109-1 Performed By: #### L 100.0100 ####[facility] [address] [place], [address] MCV (RBC) [Entitic vol] 91.4 fL Normal 80-94 [facility] Comment on above: Order Comment: 109-1 Performed By: #### L 100.0100 ####[facility] [address] [place], [address] Monocytes/100 WBC (Bld) 8.0 % Normal 0-10 [facility] Comment on above: Order Comment: 109-1 Performed By: #### L 100.0100 ####[facility] [address] [place], [address] Neutrophils/100 WBC (Bld) 65.2 % Normal 47-70 [facility] Comment on above: Order Comment: 109-1 Performed By: #### L 100.0100 ####[facility] [address] [place], [address] Nucleated RBC (Bld) [#/Vol] 0 10*3/uL Normal 0-5 [facility] Comment on above: Order Comment: 109-1 Performed By: #### L 100.0100 ####[facility] [address] [place], [address] Platelet mean volume (Bld) [Entitic vol] 11.5 fL Normal 6.2-12.0 [facility] Comment on above: Order Comment: 109-1 Performed By: #### L 100.0100 ####[facility] [address] [place], [address] Platelets (Bld) [#/Vol] 190 10*3/uL Normal 150-450 [facility] Comment on above: Order Comment: 109-1 Performed By: #### L 100.0100 ####[facility] [address] [place], [address] RBC (Bld) [#/Vol] 4.54 10*6/uL Low 4.6-6.2 [facility] Comment on above: Order Comment: 109-1 Performed By: #### L 100.0100 ####[facility] [address] [place], [address] RDW SD 43.3 fl Normal 35.1-43.9 [facility] Comment on above: Order Comment: 109-1 Performed By: #### L 100.0100 ####[facility] [address] [place], [address] WBC (Bld) [#/Vol] 8.8 10*3/uL Normal 4.4-11.0 [facility] Comment on above: Order Comment: 109-1 Performed By: #### L 100.0100 ####[facility] [address] [place], [address] Urine Cultureon 11-15-2023 [facility] Culture exhibits no growth. Normal [facility] Comment on above: Performed By: #### M 100.2200, L400.0001 ####[facility] [address] [place], [address] Urinalysis, Completeon 11-13 RBC 0-5 SEEN Normal 0-5 [facility] Comment on above: Order Comment: CLEAN CATCH Performed By: #### M 100.2200, L400.0001 ####[facility] [address] [place], [address] WBC 0-5 SEEN Normal 0-5 [facility] Comment on above: Order Comment: CLEAN CATCH Performed By: #### M 100.2200, L400.0001 ####[facility] [address] [place], [address] BACTERIA 0 SEEN Normal None Seen [facility] Comment on above: Order Comment: CLEAN CATCH Performed By: #### M 100.2200, L400.0001 ####[facility] [address] [place], [address] EPI,SQUAMOUS 0 SEEN Normal 0-5 [facility] Comment on above: Order Comment: CLEAN CATCH Performed By: #### M 100.2200, L400.0001 ####[facility] [address] [place], [address] Mucus Ql (Urine sed) 0 SEEN Normal [facility] Comment on above: Order Comment: CLEAN CATCH Performed By: #### M 100.2200, L400.0001 ####[facility] [address] [place], [address] CBC W/Diff, Automatedon 07- Absolute Lymph 2.72 X10 3/uL Normal 0.83-4.51 [facility] Comment on above: Order Comment: 109-1 Performed By: #### L 100.0100 ####[facility] [address] [place], [address] Absolute Neut 8.2 X10 3/uL High 2.0-7.7 [facility] Comment on above: Order Comment: 109-1 Performed By: #### L 100.0100 ####[facility] [address] [place], [address] Basophils/100 WBC (Bld) 0.5 % Normal 0-1 [facility] Comment on above: Order Comment: 109-1 Performed By: #### L 100.0100 ####[facility] [address] [place], [address] Eosinophils/100 WBC (Bld) 0.3 % Normal 0-5 [facility] Comment on above: Order Comment: 109-1 Performed By: #### L 100.0100 ####[facility] [address] [place], [address] Erythrocyte distribution width (RBC) [Ratio] 12.9 % Normal 11.6-14.6 [facility] Comment on above: Order Comment: 109-1 Performed By: #### L 100.0100 ####[facility] [address] [place], [address] Hematocrit (Bld) [Volume fraction] 43.6 % Normal 40-54 [facility] Comment on above: Order Comment: 109-1 Performed By: #### L 100.0100 ####[facility] [address] [place], [address] Hemoglobin (Bld) [Mass/Vol] 14.0 g/dL Normal 13.0-16.5 [facility] Comment on above: Order Comment: 109-1 Performed By: #### L 100.0100 ####[facility] [address] [place], [address] IG% 0.400 Normal 0.0-0.9 [facility] Comment on above: Order Comment: 109-1 Result Comment: IG% - Immature Granulocytes (promyelocytes, myelocytes andmetamyelocytes) > 1% indicates that a LEFT SHIFT is Present. Performed By: #### L 100.0100 ####[facility] [address] [place], [address] Lymphocytes/100 WBC (Bld) 23.2 % Normal 19-41 [facility] Comment on above: Order Comment: 109-1 Performed By: #### L 100.0100 ####[facility] [address] [place], [address] MCH (RBC) [Entitic mass] 29.9 pg Normal 27.0-32.0 [facility] Comment on above: Order Comment: 109-1 Performed By: #### L 100.0100 ####[facility] [address] [place], [address] MCHC (RBC) [Mass/Vol] 32.1 g/dL Normal 32-36 [facility] Comment on above: Order Comment: 109-1 Performed By: #### L 100.0100 ####[facility] [address] [place], [address] MCV (RBC) [Entitic vol] 93.0 fL Normal 80-94 [facility] Comment on above: Order Comment: 109-1 Performed By: #### L 100.0100 ####[facility] [address] [place], [address] Monocytes/100 WBC (Bld) 5.8 % Normal 0-10 [facility] Comment on above: Order Comment: 109-1 Performed By: #### L 100.0100 ####[facility] [address] [place], [address] Neutrophils/100 WBC (Bld) 69.8 % Normal 47-70 [facility] Comment on above: Order Comment: 109-1 Performed By: #### L 100.0100 ####[facility] [address] [place], [address] Nucleated RBC (Bld) [#/Vol] 0 10*3/uL Normal 0-5 [facility] Comment on above: Order Comment: 109-1 Performed By: #### L 100.0100 ####[facility] [address] [place], [address] Platelet mean volume (Bld) [Entitic vol] 11.2 fL Normal 6.2-12.0 [facility] Comment on above: Order Comment: 109-1 Performed By: #### L 100.0100 ####[facility] [address] [place], [address] Platelets (Bld) [#/Vol] 207 10*3/uL Normal 150-450 [facility] Comment on above: Order Comment: 109-1 Performed By: #### L 100.0100 ####[facility] [address] [place], [address] RBC (Bld) [#/Vol] 4.69 10*6/uL Normal 4.6-6.2 [facility] Comment on above: Order Comment: 109-1 Performed By: #### L 100.0100 ####[facility] [address] [place], [address] RDW SD 43.4 fl Normal 35.1-43.9 [facility] Comment on above: Order Comment: 109-1 Performed By: #### L 100.0100 ####[facility] [address] [place], [address] WBC (Bld) [#/Vol] 11.7 10*3/uL High 4.4-11.0 [facility] Comment on above: Order Comment: 109-1 Performed By: #### L 100.0100 ####[facility] [address] [place], [address] CBC W/Diff, Automatedon 07-0 8-2024 Absolute Lymph 2.13 X10 3/uL Normal 0.83-4.51 [facility] Comment on above: Order Comment: 109-1 Performed By: #### L 100.0100 ####[facility] [address] [place], [address] Absolute Neut 4.7 X10 3/uL Normal 2.0-7.7 [facility] Comment on above: Order Comment: 109-1 Performed By: #### L 100.0100 ####[facility] [address] [place], [address] Basophils/100 WBC (Bld) 0.7 % Normal 0-1 [facility] Comment on above: Order Comment: 109-1 Performed By: #### L 100.0100 ####[facility] [address] [place], [address] Eosinophils/100 WBC (Bld) 0.4 % Normal 0-5 [facility] Comment on above: Order Comment: 109-1 Performed By: #### L 100.0100 ####[facility] [address] [place], [address] Erythrocyte distribution width (RBC) [Ratio] 13.1 % Normal 11.6-14.6 [facility] Comment on above: Order Comment: 109-1 Performed By: #### L 100.0100 ####[facility] [address] [place], [address] Hematocrit (Bld) [Volume fraction] 42.4 % Normal 40-54 [facility] Comment on above: Order Comment: 109-1 Performed By: #### L 100.0100 ####[facility] [address] [place], [address] Hemoglobin (Bld) [Mass/Vol] 13.9 g/dL Normal 13.0-16.5 [facility] Comment on above: Order Comment: 109-1 Performed By: #### L 100.0100 ####[facility] [address] [place], [address] IG% 0.400 Normal 0.0-0.9 [facility] Comment on above: Order Comment: 109-1 Result Comment: IG% - Immature Granulocytes (promyelocytes, myelocytes andmetamyelocytes) > 1% indicates that a LEFT SHIFT is Present. Performed By: #### L 100.0100 ####[facility] [address] [place], [address] Lymphocytes/100 WBC (Bld) 28.1 % Normal 19-41 [facility] Comment on above: Order Comment: 109-1 Performed By: #### L 100.0100 ####[facility] [address] [place], [address] MCH (RBC) [Entitic mass] 30.3 pg Normal 27.0-32.0 [facility] Comment on above: Order Comment: 109-1 Performed By: #### L 100.0100 ####[facility] [address] [place], [address] MCHC (RBC) [Mass/Vol] 32.8 g/dL Normal 32-36 [facility] Comment on above: Order Comment: 109-1 Performed By: #### L 100.0100 ####[facility] [address] [place], [address] MCV (RBC) [Entitic vol] 92.4 fL Normal 80-94 [facility] Comment on above: Order Comment: 109-1 Performed By: #### L 100.0100 ####[facility] [address] [place], [address] Monocytes/100 WBC (Bld) 8.8 % Normal 0-10 [facility] Comment on above: Order Comment: 109-1 Performed By: #### L 100.0100 ####[facility] [address] [place], [address] Neutrophils/100 WBC (Bld) 61.6 % Normal 47-70 [facility] Comment on above: Order Comment: 109-1 Performed By: #### L 100.0100 ####[facility] [address] [place], [address] Nucleated RBC (Bld) [#/Vol] 0 10*3/uL Normal 0-5 [facility] Comment on above: Order Comment: 109-1 Performed By: #### L 100.0100 ####[facility] [address] [place], [address] Platelet mean volume (Bld) [Entitic vol] 10.9 fL Normal 6.2-12.0 [facility] Comment on above: Order Comment: 109-1 Performed By: #### L 100.0100 ####[facility] [address] [place], [address] Platelets (Bld) [#/Vol] 173 10*3/uL Normal 150-450 [facility] Comment on above: Order Comment: 109-1 Performed By: #### L 100.0100 ####[facility] [address] [place], [address] RBC (Bld) [#/Vol] 4.59 10*6/uL Low 4.6-6.2 [facility] Comment on above: Order Comment: 109-1 Performed By: #### L 100.0100 ####[facility] [address] [place], [address] RDW SD 44.0 fl High 35.1-43.9 [facility] Comment on above: Order Comment: 109-1 Performed By: #### L 100.0100 ####[facility] [address] [place], [address] WBC (Bld) [#/Vol] 7.6 10*3/uL Normal 4.4-11.0 [facility] Comment on above: Order Comment: 109-1 Performed By: #### L 100.0100 ####[facility] [address] [place], [address] CBC W/Diff, Automatedon 07-0 1-2023 Absolute Lymph 3.06 X10 3/uL Normal 0.83-4.51 [facility] Comment on above: Order Comment: 109-1 Performed By: #### L 100.0100 ####[facility] [address] [place], [address] Absolute Neut 5.1 X10 3/uL Normal 2.0-7.7 [facility] Comment on above: Order Comment: 109-1 Performed By: #### L 100.0100 ####[facility] [address] [place], [address] Basophils/100 WBC (Bld) 0.5 % Normal 0-1 [facility] Comment on above: Order Comment: 109-1 Performed By: #### L 100.0100 ####[facility] [address] [place], [address] Eosinophils/100 WBC (Bld) 0.3 % Normal 0-5 [facility] Comment on above: Order Comment: 109-1 Performed By: #### L 100.0100 ####[facility] [address] [place], [address] Erythrocyte distribution width (RBC) [Ratio] 13.2 % Normal 11.6-14.6 [facility] Comment on above: Order Comment: 109-1 Performed By: #### L 100.0100 ####[facility] [address] [place], [address] Hematocrit (Bld) [Volume fraction] 43.8 % Normal 40-54 [facility] Comment on above: Order Comment: 109-1 Performed By: #### L 100.0100 ####[facility] [address] [place], [address] Hemoglobin (Bld) [Mass/Vol] 13.9 g/dL Normal 13.0-16.5 [facility] Comment on above: Order Comment: 109-1 Performed By: #### L 100.0100 ####[facility] [address] [place], [address] IG% 0.400 Normal 0.0-0.9 [facility] Comment on above: Order Comment: 109-1 Result Comment: IG% - Immature Granulocytes (promyelocytes, myelocytes andmetamyelocytes) > 1% indicates that a LEFT SHIFT is Present. Performed By: #### L 100.0100 ####[facility] [address] [place], [address] Lymphocytes/100 WBC (Bld) 32.4 % Normal 19-41 [facility] Comment on above: Order Comment: 109-1 Performed By: #### L 100.0100 ####[facility] [address] [place], [address] MCH (RBC) [Entitic mass] 29.3 pg Normal 27.0-32.0 [facility] Comment on above: Order Comment: 109-1 Performed By: #### L 100.0100 ####[facility] [address] [place], [address] MCHC (RBC) [Mass/Vol] 31.7 g/dL Low 32-36 [facility] Comment on above: Order Comment: 109-1 Performed By: #### L 100.0100 ####[facility] [address] [place], [address] MCV (RBC) [Entitic vol] 92.4 fL Normal 80-94 [facility] Comment on above: Order Comment: 109-1 Performed By: #### L 100.0100 ####[facility] [address] [place], [address] Monocytes/100 WBC (Bld) 11.9 % High 0-10 [facility] Comment on above: Order Comment: 109-1 Performed By: #### L 100.0100 ####[facility] [address] [place], [address] Neutrophils/100 WBC (Bld) 54.5 % Normal 47-70 [facility] Comment on above: Order Comment: 109-1 Performed By: #### L 100.0100 ####[facility] [address] [place], [address] Nucleated RBC (Bld) [#/Vol] 0 10*3/uL Normal 0-5 [facility] Comment on above: Order Comment: 109-1 Performed By: #### L 100.0100 ####[facility] [address] [place], [address] Platelet mean volume (Bld) [Entitic vol] 11.7 fL Normal 6.2-12.0 [facility] Comment on above: Order Comment: 109-1 Performed By: #### L 100.0100 ####[facility] [address] [place], [address] Platelets (Bld) [#/Vol] 203 10*3/uL Normal 150-450 [facility] Comment on above: Order Comment: 109-1 Performed By: #### L 100.0100 ####[facility] [address] [place], [address] RBC (Bld) [#/Vol] 4.74 10*6/uL Normal 4.6-6.2 [facility] Comment on above: Order Comment: 109-1 Performed By: #### L 100.0100 ####[facility] [address] [place], [address] RDW SD 44.7 fl High 35.1-43.9 [facility] Comment on above: Order Comment: 109-1 Performed By: #### L 100.0100 ####[facility] [address] [place], [address] WBC (Bld) [#/Vol] 9.4 10*3/uL Normal 4.4-11.0 [facility] Comment on above: Order Comment: 109-1 Performed By: #### L 100.0100 ####[facility] [address] [place], [address] CBC W/Diff, Automatedon 06-2 -2023 Absolute Lymph 2.08 X10 3/uL Normal 0.83-4.51 [facility] Comment on above: Order Comment: 109-1 Performed By: #### L 100.0100 ####[facility] [address] [place], [address] Absolute Neut 4.3 X10 3/uL Normal 2.0-7.7 [facility] Comment on above: Order Comment: 109-1 Performed By: #### L 100.0100 ####[facility] [address] [place], [address] Basophils/100 WBC (Bld) 0.6 % Normal 0-1 [facility] Comment on above: Order Comment: 109-1 Performed By: #### L 100.0100 ####[facility] [address] [place], [address] Eosinophils/100 WBC (Bld) 0.6 % Normal 0-5 [facility] Comment on above: Order Comment: 109-1 Performed By: #### L 100.0100 ####[facility] [address] [place], [address] Erythrocyte distribution width (RBC) [Ratio] 12.9 % Normal 11.6-14.6 [facility] Comment on above: Order Comment: 109-1 Performed By: #### L 100.0100 ####[facility] [address] [place], [address] Hematocrit (Bld) [Volume fraction] 39.1 % Low 40-54 [facility] Comment on above: Order Comment: 109-1 Performed By: #### L 100.0100 ####[facility] [address] [place], [address] Hemoglobin (Bld) [Mass/Vol] 12.6 g/dL Low 13.0-16.5 [facility] Comment on above: Order Comment: 109-1 Performed By: #### L 100.0100 ####[facility] [address] [place], [address] IG% 0.400 Normal 0.0-0.9 [facility] Comment on above: Order Comment: 109-1 Result Comment: IG% - Immature Granulocytes (promyelocytes, myelocytes andmetamyelocytes) > 1% indicates that a LEFT SHIFT is Present. Performed By: #### L 100.0100 ####[facility] [address] [place], [address] Lymphocytes/100 WBC (Bld) 29.1 % Normal 19-41 [facility] Comment on above: Order Comment: 109-1 Performed By: #### L 100.0100 ####[facility] [address] [place], [address] MCH (RBC) [Entitic mass] 29.7 pg Normal 27.0-32.0 [facility] Comment on above: Order Comment: 109-1 Performed By: #### L 100.0100 ####[facility] [address] [place], [address] MCHC (RBC) [Mass/Vol] 32.2 g/dL Normal 32-36 [facility] Comment on above: Order Comment: 109-1 Performed By: #### L 100.0100 ####[facility] [address] [place], [address] MCV (RBC) [Entitic vol] 92.2 fL Normal 80-94 [facility] Comment on above: Order Comment: 109-1 Performed By: #### L 100.0100 ####[facility] [address] [place], [address] Monocytes/100 WBC (Bld) 9.6 % Normal 0-10 [facility] Comment on above: Order Comment: 109-1 Performed By: #### L 100.0100 ####[facility] [address] [place], [address] Neutrophils/100 WBC (Bld) 59.7 % Normal 47-70 [facility] Comment on above: Order Comment: 109-1 Performed By: #### L 100.0100 ####[facility] [address] [place], [address] Nucleated RBC (Bld) [#/Vol] 0 10*3/uL Normal 0-5 [facility] Comment on above: Order Comment: 109-1 Performed By: #### L 100.0100 ####[facility] [address] [place], [address] Platelet mean volume (Bld) [Entitic vol] 11.3 fL Normal 6.2-12.0 [facility] Comment on above: Order Comment: 109-1 Performed By: #### L 100.0100 ####[facility] [address] [place], [address] Platelets (Bld) [#/Vol] 200 10*3/uL Normal 150-450 [facility] Comment on above: Order Comment: 109-1 Performed By: #### L 100.0100 ####[facility] [address] [place], [address] RBC (Bld) [#/Vol] 4.24 10*6/uL Low 4.6-6.2 [facility] Comment on above: Order Comment: 109-1 Performed By: #### L 100.0100 ####[facility] [address] [place], [address] RDW SD 43.5 fl Normal 35.1-43.9 [facility] Comment on above: Order Comment: 109-1 Performed By: #### L 100.0100 ####[facility] [address] [place], [address] WBC (Bld) [#/Vol] 7.2 10*3/uL Normal 4.4-11.0 [facility] Comment on above: Order Comment: 109-1 Performed By: #### L 100.0100 ####[facility] [address] [place], [address] CBC W/Diff, Automatedon 09-29 Absolute Lymph 2.37 X10 3/uL Normal 0.83-4.51 [facility] Comment on above: Order Comment: 109-1 Performed By: #### L 100.0100 ####[facility] [address] [place], [address] Absolute Neut 5.6 X10 3/uL Normal 2.0-7.7 [facility] Comment on above: Order Comment: 109-1 Performed By: #### L 100.0100 ####[facility] [address] [place], [address] Basophils/100 WBC (Bld) 0.3 % Normal 0-1 [facility] Comment on above: Order Comment: 109-1 Performed By: #### L 100.0100 ####[facility] [address] [place], [address] Eosinophils/100 WBC (Bld) 0.2 % Normal 0-5 [facility] Comment on above: Order Comment: 109-1 Performed By: #### L 100.0100 ####[facility] [address] [place], [address] Erythrocyte distribution width (RBC) [Ratio] 12.6 % Normal 11.6-14.6 [facility] Comment on above: Order Comment: 109-1 Performed By: #### L 100.0100 ####[facility] [address] [place], [address] Hematocrit (Bld) [Volume fraction] 39.6 % Low 40-54 [facility] Comment on above: Order Comment: 109-1 Performed By: #### L 100.0100 ####[facility] [address] [place], [address] Hemoglobin (Bld) [Mass/Vol] 12.8 g/dL Low 13.0-16.5 [facility] Comment on above: Order Comment: 109-1 Performed By: #### L 100.0100 ####[facility] [address] [place], [address] IG% 0.500 Normal 0.0-0.9 [facility] Comment on above: Order Comment: 109-1 Result Comment: IG% - Immature Granulocytes (promyelocytes, myelocytes andmetamyelocytes) > 1% indicates that a LEFT SHIFT is Present. Performed By: #### L 100.0100 ####[facility] [address] [place], [address] Lymphocytes/100 WBC (Bld) 27.3 % Normal 19-41 [facility] Comment on above: Order Comment: 109-1 Performed By: #### L 100.0100 ####[facility] [address] [place], [address] MCH (RBC) [Entitic mass] 29.7 pg Normal 27.0-32.0 [facility] Comment on above: Order Comment: 109-1 Performed By: #### L 100.0100 ####[facility] [address] [place], [address] MCHC (RBC) [Mass/Vol] 32.3 g/dL Normal 32-36 [facility] Comment on above: Order Comment: 109-1 Performed By: #### L 100.0100 ####[facility] [address] [place], [address] MCV (RBC) [Entitic vol] 91.9 fL Normal 80-94 [facility] Comment on above: Order Comment: 109-1 Performed By: #### L 100.0100 ####[facility] [address] [place], [address] Monocytes/100 WBC (Bld) 6.8 % Normal 0-10 [facility] Comment on above: Order Comment: 109-1 Performed By: #### L 100.0100 ####[facility] [address] [place], [address] Neutrophils/100 WBC (Bld) 64.9 % Normal 47-70 [facility] Comment on above: Order Comment: 109-1 Performed By: #### L 100.0100 ####[facility] [address] [place], [address] Nucleated RBC (Bld) [#/Vol] 0 10*3/uL Normal 0-5 [facility] Comment on above: Order Comment: 109-1 Performed By: #### L 100.0100 ####[facility] [address] [place], [address] Platelet mean volume (Bld) [Entitic vol] 10.7 fL Normal 6.2-12.0 [facility] Comment on above: Order Comment: 109-1 Performed By: #### L 100.0100 ####[facility] [address] [place], [address] Platelets (Bld) [#/Vol] 209 10*3/uL Normal 150-450 [facility] Comment on above: Order Comment: 109-1 Performed By: #### L 100.0100 ####[facility] [address] [place], [address] RBC (Bld) [#/Vol] 4.31 10*6/uL Low 4.6-6.2 [facility] Comment on above: Order Comment: 109-1 Performed By: #### L 100.0100 ####[facility] [address] [place] [place], [address] RDW SD 42.5 fl Normal 35.1-43.9 [facility] Comment on above: Order Comment: 109-1 Performed By: #### L 100.0100 ####[facility] [id number] [place], [address] WBC (Bld) [#/Vol] 8.7 10*3/uL Normal 4.4-11.0 [facility] Comment on above: Order Comment: 109-1 Performed By: #### L 100.0100 ####[facility] [id number] [place], [address] CBC W Auto Differential pane l (Bld)on 10-02-2023 Basophils (Bld) [#/Vol] 0.0 10*3/uL 0.0 - 0.2 10*3/uL [facility] Bas[facility]/100 WBC (Bld) 0.3 % 0.0 - 2.0 % [facility] Eosinophils (Bld) [#/Vol] 0.0 10*3/uL 0.0 - 0.5 10*3/uL [employer] Eosinophils/100 WBC (Bld) 0.0 % 0.0 - 6.0 % [employer] Erythrocyte distribution width (RBC) [Ratio] 13.0 % 11.5 - 15.0 % [employer] [facility] Hematocrit (Bld) [Volume fraction] 37.8 % Low 40.0 - 52.0 % [employer] [facility] Hemoglobin (Bld) [Mass/Vol] 13.0 g/dL 13.0 - 18.0 g/dL [facility] Immature granulocytes (Bld) [#/Vol] 0.1 10*3/uL High NINF - 0.1 10*3/uL [facility] Immature granulocytes/100 WBC (Bld) 0.5 % 0.0 - 2.0 % [facility] Interpretation and review of laboratory results Abnormal [facility] Lymphocytes (Bld) [#/Vol] 0.9 10*3/uL Low 1.0 - 4.3 10*3/uL [facility] Lymphocytes/100 WBC (Bld) 8.4 % Low 15.0 - 45.0 % [facility] MCH (RBC) [Entitic mass] 30.3 pg 26.0 - 34.0 pg [facility] MCHC (RBC) [Mass/Vol] 34.4 % 30.5 - 36.0 % [facility] MCV (RBC) [Entitic vol] 88.1 fL 77.0 - 99.0 fL [facility] Monocytes (Bld) [#/Vol] 0.9 10*3/uL 0.0 - 0.9 10*3/uL [facility] Monocytes/100 WBC (Bld) 8.2 % 5.0 - 13.0 % [facility] Neutrophils (Bld) [#/Vol] 8.9 10*3/uL High 1.8 - 7.5 10*3/uL [facility] Neutrophils/100 WBC (Bld) 82.6 % High 38.0 - 82.0 % [facility] Nucleated RBC/100 WBC (Bld) [Ratio] 0.0 % [facility] Platelet mean volume (Bld) [Entitic vol] 10.7 fL 9.0 - 12.7 fL [facility] Platelets (Bld) [#/Vol] 148 10*3/uL 140 - 440 10*3/uL [facility] RBC (Bld) [#/Vol] 4.29 10*6/uL Low 4.40 - 5.9 0 10*6/uL [facility] WBC (Bld) [#/Vol] 10.7 10*3/uL 3.6 - 10.7 10*3/uL [facility] CBC WITH AUTO DIFFERENTIALon 10-02-2023 Basophils (Bld) [#/Vol] 0.0 10*3/uL Normal 0.0-0.2 [facility] Comment on above: Performed By: #### L [id number] #### Road Builder: CYNDI LILLY ([id number]) [facility] ([facility]) [address] Basophils/100 WBC (Bld) 0.3 % Normal 0.0-2.0 [facility] Comment on above: Performed By: #### L [id number] #### Road Builder: CYNDI LILLY ([id number]) [facility] [place] [facility] [address] Eosinophils (Bld) [#/Vol] 0.0 10*3/uL Normal 0.0-0.5 [facility] Comment on above: Performed By: #### L [id number] #### Road Builder: CYNDI LILLY ([id number]) [facility] [place] ([facility]) [address] Eosinophils/100 WBC (Bld) 0.0 % Normal 0.0-6.0 [facility] Comment on above: Performed By: #### L [id number] #### Road Builder: CYNDI LILLY ([id number]) [facility] [place] ([facility]) [address] Erythrocyte distribution width (RBC) [Ratio] 13.0 % Normal 11.5-15.0 [facility] Comment on above: Performed By: #### L [id number] #### Road Builder: CYNDI LILLY ([id number]) [facility] [place] ([facility]) [address] Hematocrit (Bld) [Volume fraction] 37.8 % Low 40.0-52.0 [facility] Comment on above: Performed By: #### L [id number] #### Road Builder: CYNDI LILLY ([id number]) [facility] [place] ([facility]) [address] Hemoglobin (Bld) [Mass/Vol] 13.0 g/dL Normal 13.0-18.0 [facility] Comment on above: Performed By: #### L [id number] #### Road Builder: CYNDI LILLY ([id number]) [facility] ([facility]) [address] IMMATURE GRANS % 0.5 % Normal 0.0-2.0 [facility] Comment on above: Performed By: #### L [id number] #### Road Builder: CYNDI LILLY ([id number]) [facility] ([facility] [address] IMMATURE GRANS ABSOLUTE 0.1 10*3/uL High <0.1 [facility] Comment on above: Performed By: #### L [id number] #### Road Builder: CYNDI LILLY ([id number]) [facility] ([facility]) [address] Lymphocytes (Bld) [#/Vol] 0.9 10*3/uL Low 1.0-4.3 [facility] Comment on above: Performed By: #### L [id number] #### Road Builder: CYNDI LILLY ([id number]) [facility] ([facility] [address] Lymphocytes/100 WBC (Bld) 8.4 % Low 15.0-45.0 [facility] Comment on above: Performed By: #### L [id number] #### Road Builder: CYNDI LILLY ([id number]) [facility] ([facility] [address] MCH (RBC) [Entitic mass] 30.3 pg Normal 26.0-34.0 [facility] Comment on above: Performed By: #### L [id number] #### Road Builder: CYNDI LILLY ([id number]) [facility] ([facility] [address] MCHC 34.4 % Normal 30.5-36.0 [facility] Comment on above: Performed By: #### L [id number] #### Road Builder: CYNDI LILLY ([id number]) [facility] ([facility]) [address] MCV (RBC) [Entitic vol] 88.1 fL Normal 77.0-99.0 S [facility] Comment on above: Performed By: #### L [id number] #### Road Builder: CYNDI DRIVERRADHA ([id number]) [facility] ([facility]) [address] Monocytes (Bld) [#/Vol] 0.9 10*3/uL Normal 0.0-0.9 [facility] Comment on above: Performed By: #### L [id number] #### Road Builder: CYNDI DRIVERRADHA ([id number]) [facility] ([facility]) [address] [place] [address] [place] Monocytes/100 WBC (Bld) 8.2 % Normal 5.0-13.0 S [facility] Comment on above: Performed By: #### L [id number] #### Road Builder: CYNDI LILLY ([id number]) [facility] ([facility]) [address] NEUTROPHILS ABSOLUTE 8.9 10*3/uL High 1.8-7.5 [facility] Comment on above: Performed By: #### L [id number] #### Road Builder: CYNDI DRIVERRADHA ([id number]) [facility] ([facility]) [address] [place] [address] [place] Neutrophils/100 WBC (Bld) 82.6 % High 38.0-82.0 [facility] Comment on above: Performed By: #### L [id number] #### Road Builder: CYNDI LILLY ([id number]) [facility] ([facility]) [address] [place] [address] [place] NRBC 0.0 /100 WBCs Normal 0.0-2.0 [facility] Comment on above: Performed By: #### L [id number] #### Road Builder: CYNDI LILLY ([id number]) [facility] ([facility]) [address] Platelet mean volume (Bld) [Entitic vol] 10.7 fL Normal 9.0-12.7 [facility] Comment on above: Performed By: #### L [id number] #### Road Builder: CYNDI LILLY ([id number]) [facility] ([facility]) [address] Platelets (Bld) [#/Vol] 148 10*3/uL Normal 140-440 [facility] Comment on above: Performed By: #### L [id number] #### Road Builder: CYNDI LILLY ([id number]) [facility] [address] RBC (Bld) [#/Vol] 4.29 10*6/uL Low 4.40-5.90 [facility] Comment on above: Performed By: #### L [id number] #### Road Builder: CYNDI LILLY ([id number]) [facility] [address] WBC (Bld) [#/Vol] 10.7 10*3/uL Normal 3.6-10.7 [facility] Comment on above: Performed By: #### L [id number] #### Road Builder: CYNDI LILLY ([id number]) [facility] ([facility] [address] COMPREHENSIVE METABOLIC PANE Reji 10-02-2023 Albumin [Mass/Vol] 3.7 g/dL Normal 3.5-5.0 [facility] Comment on above: Performed By: #### L [id number], [id number] ####Road Builder: CYNDI LILLY ([id number])[facility] ([facility])[address] ALP [Catalytic activity/Vol] 78 U/L Normal 38-126 [facility] Comment on above: Performed By: #### L AB17, [id number] ####Road Builder: CYNDI LILLY ([id number])[facility] ([facility])[address] ALT [Catalytic activity/Vol] 21 U/L Normal 0-49 [facility] Comment on above: Performed By: #### L AB17, [id number] ####Road Builder: CYNDI LILLY ([id number])[facility] [place] ([facility])[address] Anion gap [Moles/Vol] 10 mmol/L Normal 3-13 [facility] Comment on above: Performed By: #### Alban AB17, [id number] ####Road Builder: CYNDI LILLY ([id number])[facility] [place] ([facility])[address] AST [Catalytic activity/Vol] 29 U/L Normal 15-46 [facility] Comment on above: Performed By: #### Alban AB17, [id number] ####Road Builder: CYNDI LILLY ([id number])[facility] [place] ([facility])[address] Bilirubin [Mass/Vol] 1.1 mg/dL Normal 0.2-1.3 [facility] Comment on above: Performed By: #### L AB17, [id number] ####Road Builder: CYNDI LILLY ([id number])[facility] [place] ([facility])[address] [place] [address] [place] Calcium [Mass/Vol] 7.8 mg/dL Low 8.4-10.4 [facility] Comment on above: Performed By: #### L AB17, [id number] ####Road Builder: CYNDI LILLY ([id number])[facility] [place] ([facility])[address] Chloride [Moles/Vol] 102 mmol/L Normal 98-107 [facility] Comment on above: Performed By: #### Alban AB17, [id number] ####Road Builder: CYNDI LILLY ([id number])[facility] ([facility])[address] CO2 [Moles/Vol] 23 mmol/L Normal 22-30 [facility] Comment on above: Performed By: #### Alban AB17, [id number] ####Road Builder: CYNDI LILLY ([id number])[facility] ([facility] Creatinine [Mass/Vol] 0.58 mg/dL Low 0.66-1.25 [facility] Comment on above: Performed By: #### Alban SMITH, [id number] ####Road Builder: CYNDI LILLY ([id number])[facility] ([facility])[address] GLOMERULAR FILTRATION RATE ML/MIN/1.73 SQ M.PREDICTED >90.0 Normal >60.0 [facility] Comment on above: Result Comment: Calc ulation based on the Chronic Kidney Disease Epidemiology Collaboration (CKD-EPI) equation refit without adjustment for race Performed By: #### Alban AB17, [id number] ####Road Builder: CYNDI LILLY ([id number])[facility] ([facility])[address] Glucose [Mass/Vol] 111 mg/dL High 70-100 [facility] Comment on above: Performed By: #### L AB17, [id number] ####Road Builder: CYNDI LILLY ([id number])[facility] ([facility])[address] Potassium [Moles/Vol] 4.0 mmol/L Normal 3.5-5.1 [facility] Comment on above: Performed By: #### L AB17, [id number] ####Road Builder: CYNDI LILLY ([id number])[facility] ([facility])[address] [place] [address] Protein [Mass/Vol] 6.5 g/dL Normal 6.3-8.2 [facility] Comment on above: Performed By: #### L AB17, [id number] ####Road Builder: CYNDI LILLY ([id number])[facility] ([facility])[address] Sodium [Moles/Vol] 135 mmol/L Normal 135-145 [facility] Comment on above: Performed By: #### L AB17, [id number] ####Road Builder: CYNDI LILLY ([id number])[facility] (HLAB)[address] [place] [address] Urea nitrogen [Mass/Vol] 18 mg/dL Normal 9-20 [facility] Comment on above: Performed By: #### L AB17, [id number] ####Road Builder: CYNDI LILLY ([id number])[facility] ([facility])[address] [place] [address] CT HEAD WO IV CONTRASTon CT HEAD WO IV CONTRAST Patient Name: [facility] YU [facility] 1955 [id number] Exam Date/Time: 10/02/2023 11:03 Procedure: CT HEAD WO IV CONTRAST Ordering Provider: TOLEDO AMY Reason For Exam: Neuro deficit, acute, stroke suspected EXAMINATION: CT HEAD WO IV CONTRAST HISTORY: Neuro deficit, acute, stroke suspected - - - - - [id number] - - - - TECHNIQUE: CT head [...] she has seen him for that day, scene shifter did not report any problems. EMS states [...] has no complaints at this time. Normal [facility] CT Head WO contraston [address] evidence of an acute intracranial abnormality. Report Dictated on Electronically Signed By: Maria Eugenia Ruiz MD Electronically Signed Date/Time: 10/02/2023 11:09 AM T [facility] Patient Name: KATHYA HOOPER : 1955 [facility] [id number] Exam Date/Time: 10/02/2023 11:03 Procedure: CT HEAD WO IV CONTRAST Ordering Provider: TOLEDO AMY Reason For Exam: Neuro deficit, acute, stroke suspected EXAMINATION: CT HEAD WO IV CONTRAST HISTORY: Neuro deficit, acute, stroke suspected - - - - - [id number] - - - - TECHNIQUE: CT head [...] 10/02/2023 Patient Name: KATHYA HOOPER : 1955 [id number] Exam Date/Time: 10/02/2023 11:03 Procedure: CT HEAD WO IV CONTRAST Ordering Provider: TOLEDO AMY Reason For Exam: Neuro deficit, acute, stroke suspected EXAMINATION: CT HEAD WO IV CONTRAST HISTORY: Neuro deficit, acute, stroke suspected - - - - - [id number] - - - - TECHNIQUE: CT head [...] Electronically Signed Date/Time: 10/02/2023 11:09 AM EDT [facility] Radiology Study observation (narrative) [facility] CT Head WO contrastOrdered B y: Maria Eugenia Ruiz on 10-02-2023 [facility] Work Phone: Comprehensive metabolic 1998 panelon 10-02-2023 Albumin [Mass/Vol] 3.7 g/dL 3.5 - 5.0 g/dL [facility] ALP [Catalytic activity/Vol] 78 U/L 38 - 126 U/L [facility] ALT [Catalytic activity/Vol] 21 U/L 0 - 49 U/L [facility] Anion gap [Moles/Vol] 10 mmol/L 3 - 13 mmol/L [facility] AST [Catalytic activity/Vol] 29 U/L 15 - 46 U/L [facility] Bilirubin [Mass/Vol] 1.1 mg/dL 0.2 - 1 .3 mg/dL [facility] Calcium [Mass/Vol] 7.8 mg/dL Low 8.4 - 10. 4 mg/dL [facility] Chloride [Moles/Vol] 102 mmol/L 98 - 10 7 mmol/L [facility] CO2 [Moles/Vol] 23 mmol/L 22 - 30 mmol/L [facility] Creatinine [Mass/Vol] 0.58 mg/dL Low 0.66 - 1.25 mg/dL [facility] GFR/1.73 sq M.predicted MDRD (S/P/Bld) [Vol rate/Area] - PINF [facility] Comment on above: Calculation based on the Chronic Kidney Disease Epidemiology Collaboration (CKD-EPI) equation refit without adjustment for race Glucose [Mass/Vol] 111 mg/dL High 70 - 100 mg/dL [facility] Interpretation and review of laboratory results Abnormal [facility] Potassium [Moles/Vol] 4.0 mmol/L 3.5 - 5.1 mmol/L [facility] Protein [Mass/Vol] 6.5 g/dL 6.3 - 8.2 g/dL [facility] Sodium [Moles/Vol] 135 mmol/L 135 - 145 mmol/L [facility] Urea nitrogen [Mass/Vol] 18 mg/dL 9 - 20 mg/dL [facility] ECG 12-LEADon 10-02-2023 ECG 12-LEAD IMPRESSION: Sinus tachycardia Left bundle branch block ST elevation secondary to IVCD Electronically Signed On 10-02-2023 12:40:15 EDT by Fei Farooq Normal [facility] ED Nursing Noteon 10-02-2023 ED Nursing Note [facility] at bedside at this time Mami Lantigua RN 10/02/23 1427 Normal [facility] ED Nursing Note This RN gave report to Marnie at [facility] at this time Mami Lantigua RN 10/02/23 1353 Normal [facility] ED Nursing Note This RN went to evaluate patient, was on 2L o2 and does not wear at baseline, plan is dc, this RN turned o2 off to trial patient, spo2 monitor on Mami Lantigua RN 10/02/23 1325 Normal [facility] ED Nursing Note Pt to ct via dory Alfaro RN 10/02/23 1043 [facility] ED Nursing Note Pt was brought in vi a [place] [facility] from [facility] for Left sided facial droop. Per EMS nurse is new and does not know patient very well but he is A&O x 2 at baseline. Per EMS the nurse states it was 20 mins ago. Contacted nurse that was caring for him and she states that was the first time she has seen him for that day, scene shifter did not report any problems. EMS states [...] the facility. Hx of schizophrenia. BS 131. [facility] ED Provider Noteon ED Provider Note [facility] ED eMERGENCY dEPARTMENT eNCOUnter Pt [...] [facility] the emergency department [facility] he is currently a resident. [...] History: Diagnosis Date TREVER (acute kidney injury) ([facility] ([facility] Alcohol abuse 07/08/2018 Anxiety C1 spinal cord injury ([facility]) ([facility]) Depression Fall 06/2018 Schizophrenia ([facility]) SURGICALHISTORY Past Surgical History: Procedure Laterality [...] EmergencyPhysician): Interpret (more content not included)... Normal [facility] ED Provider Note Emergency Department Encounter [facility] ED Patient: Kathya Hooper : [...] [employer] Fei Farooq MD 10/02/23 1129 [facility] Laboratory - Chemistry and C hemistry - challengeon 10-02-2023 Troponin I.cardiac [Mass/Vol] ng/mL NINF - 0.034 ng/mL [facility] Laboratory - Coagulationon 0 10-02-2023 aPTT Coag (PPP) [Time] 29.6 s 20.0 - 30.5 s [facility] INR Coag (PPP) [Relative time] 1.1 {INR} 0.9 - 1.1 [facility] Comment on above: Recommended Anticoag ulant Therapy: [...] [Time] 11.6 s 9.0 - 12.0 s [facility] No Panel Informationon 10-01 Heart Rate 103 bpm [facility] P Milam 48 degrees [facility] ID Interval 172 ms [facility] QRS Milam -38 degrees [facility] QRSD Interval [facility]val 405 ms [facility] QTC Interval 532 ms [facility] T Wave Milam 109 degrees [facility] Sinus tachycardia Left bundle branch block ST elevation secondary to IVCD Electronically Signed On 10-02-2023 12:40:15 EDT by Fei Farooq CV Fei Lopez MD - 10/02/2023 IMPRESSION: Sinus tachycardia Left bundle branch block ST elevation secondary to IVCD Electronically Signed On 10-02-2023 12:40:15 EDT by Fei Farooq [facility] Interpretation and review of laboratory results Normal [facility] PROTIME AND APTTon aPTT Coag (Bld) [Time] 29.6 s Normal 20.0-30.5 [facility] Comment on above: Performed By: #### L [id number] ####Road Builder: CYNDI LILLY ([id number])[facility] INR Coag (PPP) [Relative time] 1.1 {INR} Normal 0.9-1.1 [facility] Comment on above: Result Comment: Yefri [...] prevent Myocardial Infarction Performed By: #### L [id number] ####Road Builder: CYNDI LILLY ([id number])[facility] [place] ([facility])[address] [place] [address] PT Coag (PPP) [Time] 11.6 s Normal 9.0-12.0 [facility] Comment on above: Performed By: #### L [id number] ####Road Builder: CYNDI LILLY ([id number])[facility]ITAL[facility] ([facility])[address] [place] [address] TROPONIN, WITH SERIAL REFLEX on 10-02-2023 Troponin I.cardiac [Mass/Vol] ng/mL Normal <0.034 [facility] Comment on above: Result Comment: SHARON Stevens COMMENTS: Patients with high levels of Biotin oral intake (ie >5 mg/day) may have falsely decreased Troponin levels. Performed By: #### L AB17, [id number] ####Road Builder: CYNDI LILLY ([id number])[facility]ITAL[facility] ([facility])[address] [place] [address] Troponin I.cardiac [Mass/Vol ]on 10-02-2023 Interpretation and review of laboratory results Normal [facility] Patients with high levels of Biotin oral intake (ie >5 mg/day) may have falsely decreased Troponin levels. [facility] XR Chest Single viewon 10-01 No acute cardiopulmonary disease. Report Dictated on Electronically Signed By: Maria Eugenia Ruiz MD Electronically Signed Date/Time: 10/02/2023 11:06 AM EDT [facility] Patient Name: KATHYA HOOPER : 1955 [...] spine and shoulders. No acute osseous findings. [facility] Maria Eugenia Ruiz MD - 10/02/2023 [...] Electronically Signed Date/Time: 10/02/2023 11:06 AM EDT [facility] Radiology Study observation (narrative) [facility] Absolute lymphocyte countOrd ered By: Renard Burgos on 08-07-2023 Lymphocytes Auto (Unsp spec) [#/Vol] 2.23 10*3/uL 0.83-4.51 [facility] Automated lymphocyte count a s percentage of total leukocytesOrdered By: Renard Burgos on 08-07-2023 Lymphocytes/100 WBC Auto (Unsp spec) 23.9 % 19-41 [facility] Basophil percentageOrdered B y: Renard Burgos on 08-07-2023 Basophils/100 WBC (Bld) 0.4 % 0-1 [facility] Eosinophils/100 WBC (Bld) 0.4 % 0-5 [facility] Hemoglobin (Bld) [Mass/Vol] 13.9 g/dL 13.0-16.5 [facility] Monocytes/100 WBC (Bld) 8.0 % 0-10 [facility] Neutrophils (Bld) [#/Vol] 6.2 10*3/uL 2.0-7.7 [facility] Neutrophils/100 WBC (Bld) 66.9 % 47-70 [facility] WBC (Bld) [#/Vol] 9.3 10*3/uL 4.4-11.0 [facility] Determination of erythrocyte mean corpuscular volume (MCV)Ordered By: Renard Burgos on 08-07-2023 MCV (RBC) [Entitic vol] 90.0 fL 80-94 [facility] Erythrocyte distribution wid th ratioOrdered By: Renard Burgos on 08-07-2023 Erythrocyte distribution width (RBC) [Ratio] 13.0 % 11.6-14.6 [facility] Erythrocyte distribution wid th standard deviationOrdered By: Renard Burgos on 08-07-2023 Erythrocyte distribution width (RBC) [Entitic vol] 42.5 fL 35.1-43.9 [facility] Hematocrit Auto (Bld) [Volum e fraction]Ordered By: Renard Burgos on 08-07-2023 Hematocrit (Bld) [Volume fraction] 42.5 % 40-54 [facility] Immature granulocytes/100 WB C Auto (Bld)Ordered By: Renard Burgos on 08-07-2023 Immature granulocytes/100 WBC (Bld) 0.400 % 0.0-0.9 [facility] Comment on above: IG% - Immature Granu locytes (promyelocytes, myelocytes and metamyelocytes) > 1% indicates that a LEFT SHIFT is Present. Laboratory - Hematology and Cell countsOrdered By: Renard Burgos on 08-07-2023 MCH (RBC) [Entitic mass] 29.4 pg 27.0-32.0 [facility] MCHC (RBC) [Mass/Vol] 32.7 g/dL 32-36 [facility] Nucleated RBC/100 WBC (Bld) [Ratio] 0 % 0-5 [facility] [facility] Plate[facility] mean volume (Bld) [Entitic vol] 10.7 fL 6.2-12.0 [facility] Platelets (Bld) [#/Vol] 210 10*3/uL 150-450 [facility] RBC Auto (Bld) [#/Vol]Ordere d By: Renard Burgos on 08-07-2023 RBC (Bld) [#/Vol] 4.72 10*6/uL 4.6-6.2 [facility] Absolute lymphocyte countOrd ered By: Renard Burgos on 07-31-2023 Lymphocytes Auto (Unsp spec) [#/Vol] 2.04 10*3/uL 0.83-4.51 [facility] Automated lymphocyte count a s percentage of total leukocytesOrdered By: Renard Burgos on 07-31-2023 Lymphocytes/100 WBC Auto (Unsp spec) 24.2 % 19-41 [facility] Basophil percentageOrdered B y: Renard Burgos on 07-31-2023 Basophils/100 WBC (Bld) 0.6 % 0-1 [facility] Eosinophils/100 WBC (Bld) 0.6 % 0-5 [facility] Hemoglobin (Bld) [Mass/Vol] 13.9 g/dL 13.0-16.5 [facility] Monocytes/100 WBC (Bld) 8.5 % 0-10 [facility] Neutrophils (Bld) [#/Vol] 5.5 10*3/uL 2.0-7.7 [facility] Neutrophils/100 WBC (Bld) 65.7 % 47-70 [facility] WBC (Bld) [#/Vol] 8.4 10*3/uL 4.4-11.0 [facility] Determination of erythrocyte mean corpuscular volume (MCV)Ordered By: Renard Burgos on 07-31-2023 MCV (RBC) [Entitic vol] 89.7 fL 80-94 [facility] Erythrocyte distribution wid th ratioOrdered By: Renard Burgos on 07-31-2023 Erythrocyte distribution width (RBC) [Ratio] 12.8 % 11.6-14.6 [facility] Erythrocyte distribution wid th standard deviationOrdered By: Renard Burgos on 07-31-2023 Erythrocyte distribution width (RBC) [Entitic vol] 42.2 fL 35.1-43.9 [facility] Hematocrit Auto (Bld) [Volum e fraction]Ordered By: Renard Burgos on 07-31-2023 Hematocrit (Bld) [Volume fraction] 41.7 % 40-54 [facility] Immature granulocytes/100 WB C Auto (Bld)Ordered By: Renard Burgos on 07-31-2023 Immature granulocytes/100 WBC (Bld) 0.400 % 0.0-0.9 [facility] Comment on above: IG% - Immature Granu locytes (promyelocytes, myelocytes and metamyelocytes) > 1% indicates that a LEFT SHIFT is Present. Laboratory - Hematology and Cell countsOrdered By: Renard Burgos on 07-31-2023 MCH (RBC) [Entitic mass] 29.9 pg 27.0-32.0 [facility] MCHC (RBC) [Mass/Vol] 33.3 g/dL 32-36 [facility] Nucleated RBC/100 WBC (Bld) [Ratio] 0 % 0-5 [facility] Platelet mean volume (Bld) [Entitic vol] 10.6 fL 6.2-12.0 [facility] Platelets (Bld) [#/Vol] 201 10*3/uL 150-450 [facility] RBC Auto (Bld) [#/Vol]Ordere d By: Renard Burgos on 07-31-2023 RBC (Bld) [#/Vol] 4.65 10*6/uL 4.6-6.2 [facility] Absolute lymphocyte countOrd ered By: Renard Burgos on 07-24-2023 Lymphocytes Auto (Unsp spec) [#/Vol] 2.00 10*3/uL 0.83-4.51 [facility] Automated lymphocyte count a s percentage of total leukocytesOrdered By: Renard Burgos on 07-24-2023 Lymphocytes/100 WBC Auto (Unsp spec) 26.2 % 19-41 [facility] Basophil percentageOrdered B y: Renard Burgos on 07-24-2023 Basophils/100 WBC (Bld) 0.7 % 0-1 [facility] Eosinophils/100 WBC (Bld) 0.7 % 0-5 [facility] Hemoglobin (Bld) [Mass/Vol] 14.2 g/dL 13.0-16.5 [facility] Monocytes/100 WBC (Bld) 6.4 % 0-10 [facility] Neutrophils (Bld) [#/Vol] 5.0 10*3/uL 2.0-7.7 [facility] Neutrophils/100 WBC (Bld) 65.6 % 47-70 [facility] WBC (Bld) [#/Vol] 7.6 10*3/uL 4.4-11.0 [facility] Determination of erythrocyte mean corpuscular volume (MCV)Ordered By: Renard Burgos on 07-24-2023 MCV (RBC) [Entitic vol] 89.8 fL 80-94 [facility] Erythrocyte distribution wid th ratioOrdered By: Renard Burgos on 07-24-2023 Erythrocyte distribution width (RBC) [Ratio] 12.8 % 11.6-14.6 [facility] Erythrocyte distribution wid th standard deviationOrdered By: Renard Burgso on 07-24-2023 Erythrocyte distribution width (RBC) [Entitic vol] 42.0 fL 35.1-43.9 [facility] Hematocrit Auto (Bld) [Volum e fraction]Ordered By: Renard Burgos on 07-24-2023 Hematocrit (Bld) [Volume fraction] 43.3 % 40-54 [facility] Immature granulocytes/100 WB C Auto (Bld)Ordered By: Renard Burgos on 07-24-2023 Immature granulocytes/100 WBC (Bld) 0.400 % 0.0-0.9 [facility] Comment on above: IG% - Immature Granu locytes (promyelocytes, myelocytes and metamyelocytes) > 1% indicates that a LEFT SHIFT is Present. Laboratory - Hematology and Cell countsOrdered By: Renard Burgos on 07-24-2023 MCH (RBC) [Entitic mass] 29.5 pg 27.0-32.0 [facility] MCHC (RBC) [Mass/Vol] 32.8 g/dL 32-36 [facility] Nucleated RBC/100 WBC (Bld) [Ratio] 0 % 0-5 [facility] Platelet mean volume (Bld) [Entitic vol] 11.0 fL 6.2-12.0 [facility] Platelets (Bld) [#/Vol] 215 10*3/uL 150-450 [facility] RBC Auto (Bld) [#/Vol]Ordere d By: Renard Burgos on 07-24-2023 RBC (Bld) [#/Vol] 4.82 10*6/uL 4.6-6.2 [facility] Absolute lymphocyte countOrd ered By: Renard Burgos on 07-17-2023 Lymphocytes Auto (Unsp spec) [#/Vol] 2.22 10*3/uL 0.83-4.51 [facility] Automated lymphocyte count a s percentage of total leukocytesOrdered By: Renard Burgos on 07-17-2023 Lymphocytes/100 WBC Auto (Unsp spec) 25.4 % 19-41 [facility] Basophil percentageOrdered B y: Renard Burgos on 07-17-2023 Basophils/100 WBC (Bld) 0.5 % 0-1 [facility] Cholesterol [Mass/Vol] 126 mg/dL <200 [facility] Comment on above: <200 mg/dL Desirable 200-240 mg/dL Borderline >240 mg/dL High Risk Eosinophils/100 WBC (Bld) 0.6 % 0-5 [facility] Hemoglobin (Bld) [Mass/Vol] 14.0 g/dL 13.0-16.5 [facility] Monocytes/100 WBC (Bld) 6.6 % 0-10 [facility] Neutrophils (Bld) [#/Vol] 5.8 10*3/uL 2.0-7.7 [facility] Neutrophils/100 WBC (Bld) 66.4 % 47-70 [facility] Triglyceride [Mass/Vol] 176 mg/dL <199 [facility] Comment on above: The drugs N-Acetylcy steine and Metamizole may falsely depress this assay.Serum Triglycerides Reference Interval Normal <150 mg/dL Borderline high 150 - 199 mg/dL High 200 - 499 mg/dL Very High > or = 500 mg/dL WBC (Bld) [#/Vol] 8.7 10*3/uL 4.4-11.0 [facility] Determination of erythrocyte mean corpuscular volume (MCV)Ordered By: Renard Burgos on 07-17-2023 MCV (RBC) [Entitic vol] 90.5 fL 80-94 [facility] Erythrocyte distribution wid th ratioOrdered By: Renard Burgos on 07-17-2023 Erythrocyte distribution width (RBC) [Ratio] 12.4 % 11.6-14.6 [facility] Erythrocyte distribution wid th standard deviationOrdered By: Renard Burgos on 07-17-2023 Erythrocyte distribution width (RBC) [Entitic vol] 41.1 fL 35.1-43.9 [facility] Hematocrit Auto (Bld) [Volum e fraction]Ordered By: Renard Burgos on 07-17-2023 Hematocrit (Bld) [Volume fraction] 42.8 % 40-54 [facility] Immature granulocytes/100 WB C Auto (Bld)Ordered By: Renard Burgos on 07-17-2023 Immature granulocytes/100 WBC (Bld) 0.500 % 0.0-0.9 [facility] Comment on above: IG% - Immature Granu locytes (promyelocytes, myelocytes and metamyelocytes) > 1% indicates that a LEFT SHIFT is Present. Laboratory - Chemistry and C hemistry - challengeOrdered By: Renard Burgos on 07-17-2023 Cholesterol in HDL [Mass/Vol] 28 mg/dL >40 [facility] Comment on above: The drugs N-Acetylcy steine and Metamizole may falsely depress this assay. Reference Range HDL <40 mg/dL Low HDL Cholesterol HDL >or= 60 mg/dL High HDL Cholesterol Cholesterol in LDL [Mass/Vol] 63 mg/dL 0-130 [facility] Laboratory - Hematology and Cell countsOrdered By: Renard Burgos on 07-17-2023 MCH (RBC) [Entitic mass] 29.6 pg 27.0-32.0 [facility] MCHC (RBC) [Mass/Vol] 32.7 g/dL 32-36 [facility] Nucleated RBC/100 WBC (Bld) [Ratio] 0 % 0-5 [facility] Platelet mean volume (Bld) [Entitic vol] 10.9 fL 6.2-12.0 [facility] Platelets (Bld) [#/Vol] 193 10*3/uL 150-450 [facility] No Panel InformationOrdered By: Renard Burgos on 07-17-2023 Vitamin D 25-Hydroxy 33.1 ng/mL [facility] Comment on above: Vitamin D 25(OH) Sta tus Range Deficiency <20 ng/mL (50nmol/L) Insufficiency 20 - 30 ng/mL (50 - 75 nmol/L) Sufficiency 30 - 100 ng/mL (75 - 250 nmol/L) Toxicity >100 ng/mL (>250 nmol/L) VLDL Cholesterol 35 mg/dL 5-40 [facility] RBC Auto (Bld) [#/Vol]Ordere d By: Renard Burgos on 07-17-2023 RBC (Bld) [#/Vol] 4.73 10*6/uL 4.6-6.2 [facility] Absolute lymphocyte countOrd ered By: Renard Burgos on 07-10-2023 Lymphocytes Auto (Unsp spec) [#/Vol] 2.14 10*3/uL 0.83-4.51 [facility] Automated lymphocyte count a s percentage of total leukocytesOrdered By: Renard Burgos on 07-10-2023 Lymphocytes/100 WBC Auto (Unsp spec) 24.7 % 19-41 [facility] Basophil percentageOrdered B y: Renard Burgos on 07-10-2023 Basophils/100 WBC (Bld) 0.3 % 0-1 [facility] Eosinophils/100 WBC (Bld) 0.3 % 0-5 [facility] Hemoglobin (Bld) [Mass/Vol] 13.8 g/dL 13.0-16.5 [facility] Monocytes/100 WBC (Bld) 7.8 % 0-10 [facility] Neutrophils (Bld) [#/Vol] 5.8 10*3/uL 2.0-7.7 [facility] Neutrophils/100 WBC (Bld) 66.4 % 47-70 [facility] WBC (Bld) [#/Vol] 8.7 10*3/uL 4.4-11.0 [facility] Determination of erythrocyte mean corpuscular volume (MCV)Ordered By: Renard Burgos on 07-10-2023 MCV (RBC) [Entitic vol] 88.9 fL 80-94 [facility] Erythrocyte distribution wid th ratioOrdered By: Renard Burgos on 07-10-2023 Erythrocyte distribution width (RBC) [Ratio] 12.6 % 11.6-14.6 [facility] Erythrocyte distribution wid th standard deviationOrdered By: Renard Burgos on 07-10-2023 Erythrocyte distribution width (RBC) [Entitic vol] 40.6 fL 35.1-43.9 [facility] Hematocrit Auto (Bld) [Volum e fraction]Ordered By: Renard Burgos on 07-10-2023 Hematocrit (Bld) [Volume fraction] 41.0 % 40-54 [facility] Immature granulocytes/100 WB C Auto (Bld)Ordered By: Renard Burgos on 07-10-2023 Immature granulocytes/100 WBC (Bld) 0.500 % 0.0-0.9 [facility] Comment on above: IG% - Immature Granu locytes (promyelocytes, myelocytes and metamyelocytes) > 1% indicates that a LEFT SHIFT is Present. Laboratory - Hematology and Cell countsOrdered By: Renard Burgos on 07-10-2023 MCH (RBC) [Entitic mass] 29.9 pg 27.0-32.0 [facility] MCHC (RBC) [Mass/Vol] 33.7 g/dL 32-36 [facility] Nucleated RBC/100 WBC (Bld) [Ratio] 0 % 0-5 [facility] Platelet mean volume (Bld) [Entitic vol] 11.0 fL 6.2-12.0 [facility] Platelets (Bld) [#/Vol] 215 10*3/uL 150-450 [facility] RBC Auto (Bld) [#/Vol]Ordere d By: Renard Burgos on 07-10-2023 RBC (Bld) [#/Vol] 4.61 10*6/uL 4.6-6.2 [facility] Absolute lymphocyte countOrd ered By: Renard Burgos on 07-03-2023 Lymphocytes Auto (Unsp spec) [#/Vol] 1.84 10*3/uL 0.83-4.51 [facility] Automated lymphocyte count a s percentage of total leukocytesOrdered By: Renadr Burgos on 07-03-2023 Lymphocytes/100 WBC Auto (Unsp spec) 16.9 % 19-41 [facility] Basophil percentageOrdered B y: Renard Burgos on 07-03-2023 Basophil percentage 3.17 ng/mL 0.0-4.0 [facility] Comment on above: This test was perfor med using the TPSA assay method for theKlood chemistry system. Values obtained with differentassay methods cannot be used interchangably.When changing PSA assays in the course of monitoring apatient, additional sequential testing should be carriedout to confirm baseline values. Basophils/100 WBC (Bld) 0.5 % 0-1 [facility] Eosinophils/100 WBC (Bld) 0.4 % 0-5 [facility] Hemoglobin (Bld) [Mass/Vol] 13.2 g/dL 13.0-16.5 [facility] Monocytes/100 WBC (Bld) 7.4 % 0-10 [facility] Neutrophils (Bld) [#/Vol] 8.1 10*3/uL 2.0-7.7 [facility] Neutrophils/100 WBC (Bld) 74.4 % 47-70 [facility] WBC (Bld) [#/Vol] 10.9 10*3/uL 4.4-11.0 [facility] Determination of erythrocyte mean corpuscular volume (MCV)Ordered By: Renard Burgos on 07-03-2023 MCV (RBC) [Entitic vol] 89.8 fL 80-94 [facility] Erythrocyte distribution wid th ratioOrdered By: Renard Burgos on 07-03-2023 Erythrocyte distribution width (RBC) [Ratio] 12.7 % 11.6-14.6 [facility] Erythrocyte distribution wid th standard deviationOrdered By: Renard Burgos on 07-03-2023 Erythrocyte distribution width (RBC) [Entitic vol] 41.9 fL 35.1-43.9 [facility] Hematocrit Auto (Bld) [Volum e fraction]Ordered By: Renard Burgos on 07-03-2023 Hematocrit (Bld) [Volume fraction] 40.3 % 40-54 [facility] Immature granulocytes/100 WB C Auto (Bld)Ordered By: Renard Burgos on 07-03-2023 Immature granulocytes/100 WBC (Bld) 0.400 % 0.0-0.9 [facility] Comment on above: IG% - Immature Granu locytes (promyelocytes, myelocytes and metamyelocytes) > 1% indicates that a LEFT SHIFT is Present. Laboratory - Hematology and Cell countsOrdered By: Renard Burgos on 07-03-2023 MCH (RBC) [Entitic mass] 29.4 pg 27.0-32.0 [facility] MCHC (RBC) [Mass/Vol] 32.8 g/dL 32-36 [facility] Nucleated RBC/100 WBC (Bld) [Ratio] 0 % 0-5 [facility] Platelet mean volume (Bld) [Entitic vol] 11.2 fL 6.2-12.0 [facility] Platelets (Bld) [#/Vol] 191 10*3/uL 150-450 [facility] RBC Auto (Bld) [#/Vol]Ordere d By: Renard Burgos on 07-03-2023 RBC (Bld) [#/Vol] 4.49 10*6/uL 4.6-6.2 [facility] Absolute lymphocyte countOrd ered By: Renard Burgos on 06-26-2023 Lymphocytes Auto (Unsp spec) [#/Vol] 2.23 10*3/uL 0.83-4.51 [facility] Automated lymphocyte count a s percentage of total leukocytesOrdered By: Renard Burgos on 06-26-2023 Lymphocytes/100 WBC Auto (Unsp spec) 27.3 % 19-41 [facility] Basophil percentageOrdered B y: Renard Burgos on 06-26-2023 Basophils/100 WBC (Bld) 0.5 % 0-1 [facility] Eosinophils/100 WBC (Bld) 0.7 % 0-5 [facility] Hemoglobin (Bld) [Mass/Vol] 13.7 g/dL 13.0-16.5 [facility] Monocytes/100 WBC (Bld) 9.5 % 0-10 [facility] Neutrophils (Bld) [#/Vol] 5.1 10*3/uL 2.0-7.7 [facility] Neutrophils/100 WBC (Bld) 61.8 % 47-70 [facility] WBC (Bld) [#/Vol] 8.2 10*3/uL 4.4-11.0 [facility] Determination of erythrocyte mean corpuscular volume (MCV)Ordered By: Renard Burgos on 06-26-2023 MCV (RBC) [Entitic vol] 92.2 fL 80-94 [facility] Erythrocyte distribution wid th ratioOrdered By: Renard Burgos on 06-26-2023 Erythrocyte distribution width (RBC) [Ratio] 12.7 % 11.6-14.6 [facility] Erythrocyte distribution wid th standard deviationOrdered By: Renard Burgos on 06-26-2023 Erythrocyte distribution width (RBC) [Entitic vol] 42.8 fL 35.1-43.9 [facility] Hematocrit Auto (Bld) [Volum e fraction]Ordered By: Renard Burgos on 06-26-2023 Hematocrit (Bld) [Volume fraction] 42.6 % 40-54 [facility] Immature granulocytes/100 WB C Auto (Bld)Ordered By: Renard Burgos on 06-26-2023 Immature granulocytes/100 WBC (Bld) 0.200 % 0.0-0.9 [facility] Comment on above: IG% - Immature Granu locytes (promyelocytes, myelocytes and metamyelocytes) > 1% indicates that a LEFT SHIFT is Present. Laboratory - Hematology and Cell countsOrdered By: Renard Burgos on 06-26-2023 MCH (RBC) [Entitic mass] 29.7 pg 27.0-32.0 [facility] MCHC (RBC) [Mass/Vol] 32.2 g/dL 32-36 [facility] Nucleated RBC/100 WBC (Bld) [Ratio] 0 % 0-5 [facility] Platelet mean volume (Bld) [Entitic vol] 11.0 fL 6.2-12.0 [facility] Platelets (Bld) [#/Vol] 182 10*3/uL 150-450 [facility] RBC Auto (Bld) [#/Vol]Ordere d By: Renard Burgos on 06-26-2023 RBC (Bld) [#/Vol] 4.62 10*6/uL 4.6-6.2 [facility] Absolute lymphocyte countOrd ered By: Renard Burgos on 06-19-2023 Lymphocytes Auto (Unsp spec) [#/Vol] 2.13 10*3/uL 0.83-4.51 [facility] Automated lymphocyte count a s percentage of total leukocytesOrdered By: Renard Burgos on 06-19-2023 Lymphocytes/100 WBC Auto (Unsp spec) 28.8 % 19-41 [facility] Basophil percentageOrdered B y: Renard Burgos on 06-19-2023 Basophils/100 WBC (Bld) 0.5 % 0-1 [facility] Eosinophils/100 WBC (Bld) 0.5 % 0-5 [facility] Hemoglobin (Bld) [Mass/Vol] 13.7 g/dL 13.0-16.5 [facility] Monocytes/100 WBC (Bld) 8.1 % 0-10 [facility] Neutrophils (Bld) [#/Vol] 4.6 10*3/uL 2.0-7.7 [facility] Neutrophils/100 WBC (Bld) 61.6 % 47-70 [facility] WBC (Bld) [#/Vol] 7.4 10*3/uL 4.4-11.0 [facility] Determination of erythrocyte mean corpuscular volume (MCV)Ordered By: Renard Burgos on 06-19-2023 MCV (RBC) [Entitic vol] 91.7 fL 80-94 [facility] Erythrocyte distribution wid th ratioOrdered By: Renard Burgos on 06-19-2023 Erythrocyte distribution width (RBC) [Ratio] 12.7 % 11.6-14.6 [facility] Erythrocyte distribution wid th standard deviationOrdered By: Renard Burgos on 06-19-2023 Erythrocyte distribution width (RBC) [Entitic vol] 42.8 fL 35.1-43.9 [facility] Hematocrit Auto (Bld) [Volum e fraction]Ordered By: Renard Burgos on 06-19-2023 Hematocrit (Bld) [Volume fraction] 43.1 % 40-54 [facility] Immature granulocytes/100 WB C Auto (Bld)Ordered By: Renard Burgos on 06-19-2023 Immature granulocytes/100 WBC (Bld) 0.500 % 0.0-0.9 [facility] Comment on above: IG% - Immature Granu locytes (promyelocytes, myelocytes and metamyelocytes) > 1% indicates that a LEFT SHIFT is Present. Laboratory - Hematology and Cell countsOrdered By: Renard Burgos on 06-19-2023 MCH (RBC) [Entitic mass] 29.1 pg 27.0-32.0 [facility] MCHC (RBC) [Mass/Vol] 31.8 g/dL 32-36 [facility] Nucleated RBC/100 WBC (Bld) [Ratio] 0 % 0-5 [facility] Platelet mean volume (Bld) [Entitic vol] 11.1 fL 6.2-12.0 [facility] Platelets (Bld) [#/Vol] 201 10*3/uL 150-450 [facility] RBC Auto (Bld) [#/Vol]Ordere d By: Renard Burgos on 06-19-2023 RBC (Bld) [#/Vol] 4.70 10*6/uL 4.6-6.2 [facility] Absolute lymphocyte countOrd ered By: Renard Burgos on 06-12-2023 Lymphocytes Auto (Unsp spec) [#/Vol] 2.17 10*3/uL 0.83-4.51 [facility] Automated lymphocyte count a s percentage of total leukocytesOrdered By: Renard Burgos on 06-12-2023 Lymphocytes/100 WBC Auto (Unsp spec) 26.7 % 19-41 [facility] Basophil percentageOrdered B y: Renard Burgos on 06-12-2023 Basophils/100 WBC (Bld) 0.4 % 0-1 [facility] Eosinophils/100 WBC (Bld) 0.5 % 0-5 [facility] Hemoglobin (Bld) [Mass/Vol] 13.5 g/dL 13.0-16.5 [facility] Monocytes/100 WBC (Bld) 9.0 % 0-10 [facility] Neutrophils (Bld) [#/Vol] 5.1 10*3/uL 2.0-7.7 [facility] Neutrophils/100 WBC (Bld) 63.0 % 47-70 [facility] WBC (Bld) [#/Vol] 8.1 10*3/uL 4.4-11.0 [facility] Determination of erythrocyte mean corpuscular volume (MCV)Ordered By: Renard Burgos on 06-12-2023 MCV (RBC) [Entitic vol] 91.3 fL 80-94 [facility] Erythrocyte distribution wid th ratioOrdered By: Renard Burgos on 06-12-2023 Erythrocyte distribution width (RBC) [Ratio] 12.6 % 11.6-14.6 [facility] Erythrocyte distribution wid th standard deviationOrdered By: Renard Burgos on 06-12-2023 Erythrocyte distribution width (RBC) [Entitic vol] 41.5 fL 35.1-43.9 [facility] Hematocrit Auto (Bld) [Volum e fraction]Ordered By: Renard Burgos on 06-12-2023 Hematocrit (Bld) [Volume fraction] 40.8 % 40-54 [facility] Immature granulocytes/100 WB C Auto (Bld)Ordered By: Renard Burgos on 06-12-2023 Immature granulocytes/100 WBC (Bld) 0.400 % 0.0-0.9 [facility] Comment on above: IG% - Immature Granu locytes (promyelocytes, myelocytes and metamyelocytes) > 1% indicates that a LEFT SHIFT is Present. Laboratory - Hematology and Cell countsOrdered By: Renard Burgos on 06-12-2023 MCH (RBC) [Entitic mass] 30.2 pg 27.0-32.0 [facility] MCHC (RBC) [Mass/Vol] 33.1 g/dL 32-36 [facility] Nucleated RBC/100 WBC (Bld) [Ratio] 0 % 0-5 [facility] Platelet mean volume (Bld) [Entitic vol] 11.0 fL 6.2-12.0 [facility] Platelets (Bld) [#/Vol] 195 10*3/uL 150-450 [facility] RBC Auto (Bld) [#/Vol]Ordere d By: Renard Burgos on 06-12-2023 RBC (Bld) [#/Vol] 4.47 10*6/uL 4.6-6.2 [facility] Absolute lymphocyte countOrd ered By: Renard Burgos on 06-05-2023 Lymphocytes Auto (Unsp spec) [#/Vol] 2.05 10*3/uL 0.83-4.51 [facility] Automated lymphocyte count a s percentage of total leukocytesOrdered By: Renard Burgos on 06-05-2023 Lymphocytes/100 WBC Auto (Unsp spec) 24.1 % 19-41 [facility] Basophil percentageOrdered B y: Renard Burgos on 06-05-2023 Basophils/100 WBC (Bld) 0.5 % 0-1 [facility] Eosinophils/100 WBC (Bld) 0.5 % 0-5 [facility] Hemoglobin (Bld) [Mass/Vol] 13.6 g/dL 13.0-16.5 [facility] Monocytes/100 WBC (Bld) 7.6 % 0-10 [facility] Neutrophils (Bld) [#/Vol] 5.7 10*3/uL 2.0-7.7 [facility] Neutrophils/100 WBC (Bld) 66.9 % 47-70 [facility] WBC (Bld) [#/Vol] 8.5 10*3/uL 4.4-11.0 [facility] Determination of erythrocyte mean corpuscular volume (MCV)Ordered By: Renard Burgos on 06-05-2023 MCV (RBC) [Entitic vol] 89.7 fL 80-94 [facility] Erythrocyte distribution wid th ratioOrdered By: Renard Burgos on 06-05-2023 Erythrocyte distribution width (RBC) [Ratio] 12.6 % 11.6-14.6 [facility] Erythrocyte distribution wid th standard deviationOrdered By: Renard Burgos on 06-05-2023 Erythrocyte distribution width (RBC) [Entitic vol] 41.1 fL 35.1-43.9 [facility] Hematocrit Auto (Bld) [Volum e fraction]Ordered By: Renard Burgos on 06-05-2023 Hematocrit (Bld) [Volume fraction] 41.0 % 40-54 [facility] Immature granulocytes/100 WB C Auto (Bld)Ordered By: Renard Burgos on 06-05-2023 Immature granulocytes/100 WBC (Bld) 0.400 % 0.0-0.9 [facility] Comment on above: IG% - Immature Granu locytes (promyelocytes, myelocytes and metamyelocytes) > 1% indicates that a LEFT SHIFT is Present. Laboratory - Hematology and Cell countsOrdered By: Renard Burgos on 06-05-2023 MCH (RBC) [Entitic mass] 29.8 pg 27.0-32.0 [facility] MCHC (RBC) [Mass/Vol] 33.2 g/dL 32-36 [facility] Nucleated RBC/100 WBC (Bld) [Ratio] 0 % 0-5 [facility] Platelets (Bld) [#/Vol] 193 10*3/uL 150-450 [facility] Platelet mean volume Adam-Ec ker (Bld) [Entitic vol]Ordered By: Renard Burgos on 06-05-2023 Platelet mean volume (Bld) [Entitic vol] 10.8 fL 6.2-12.0 [facility] RBC Auto (Bld) [#/Vol]Ordere d By: Renard Burgos on 06-05-2023 RBC (Bld) [#/Vol] 4.57 10*6/uL 4.6-6.2 [facility] Absolute lymphocyte countOrd ered By: Renard Burgos on 05-29-2023 Lymphocytes Auto (Unsp spec) [#/Vol] 2.32 10*3/uL 0.83-4.51 [facility] Automated lymphocyte count a s percentage of total leukocytesOrdered By: Renard Burgos on 05-29-2023 Lymphocytes/100 WBC Auto (Unsp spec) 26.7 % 19-41 [facility] Basophil percentageOrdered B y: Renard Burgos on 05-29-2023 Basophils/100 WBC (Bld) 0.6 % 0-1 [facility] Eosinophils/100 WBC (Bld) 0.5 % 0-5 [facility] Hemoglobin (Bld) [Mass/Vol] 14.2 g/dL 13.0-16.5 [facility] Monocytes/100 WBC (Bld) 6.8 % 0-10 [facility] Neutrophils (Bld) [#/Vol] 5.7 10*3/uL 2.0-7.7 [facility] Neutrophils/100 WBC (Bld) 65.2 % 47-70 [facility] WBC (Bld) [#/Vol] 8.7 10*3/uL 4.4-11.0 [facility] Determination of erythrocyte mean corpuscular volume (MCV)Ordered By: Renard Burgos on 05-29-2023 MCV (RBC) [Entitic vol] 94.0 fL 80-94 [facility] Erythrocyte distribution wid th ratioOrdered By: Renard Burgos on 05-29-2023 Erythrocyte distribution width (RBC) [Ratio] 12.6 % 11.6-14.6 [facility] Erythrocyte distribution wid th standard deviationOrdered By: Renard Burgos on 05-29-2023 Erythrocyte distribution width (RBC) [Entitic vol] 43.0 fL 35.1-43.9 [facility] Hematocrit Auto (Bld) [Volum e fraction]Ordered By: Renard Burgos on 05-29-2023 Hematocrit (Bld) [Volume fraction] 45.4 % 40-54 [facility] Immature granulocytes/100 WB C Auto (Bld)Ordered By: Renard Burgos on 05-29-2023 Immature granulocytes/100 WBC (Bld) 0.200 % 0.0-0.9 [facility] Comment on above: IG% - Immature Granu locytes (promyelocytes, myelocytes and metamyelocytes) > 1% indicates that a LEFT SHIFT is Present. Laboratory - Hematology and Cell countsOrdered By: Renard Burgos on 05-29-2023 MCH (RBC) [Entitic mass] 29.4 pg 27.0-32.0 [facility] MCHC (RBC) [Mass/Vol] 31.3 g/dL 32-36 [facility] Nucleated RBC/100 WBC (Bld) [Ratio] 0 % 0-5 [facility] Platelets (Bld) [#/Vol] 116 10*3/uL 150-450 [facility] Platelet mean volume Adam-Ec ker (Bld) [Entitic vol]Ordered By: Renard Burgos on 05-29-2023 Platelet mean volume (Bld) [Entitic vol] 11.1 fL 6.2-12.0 [facility] RBC Auto (Bld) [#/Vol]Ordere d By: Renard Burgos on 05-29-2023 RBC (Bld) [#/Vol] 4.83 10*6/uL 4.6-6.2 [facility] Absolute lymphocyte countOrd ered By: Renard Burgos on 05-22-2023 Lymphocytes Auto (Unsp spec) [#/Vol] 2.40 10*3/uL 0.83-4.51 [facility] Automated lymphocyte count a s percentage of total leukocytesOrdered By: Renard Burgos on 05-22-2023 Lymphocytes/100 WBC Auto (Unsp spec) 25.6 % 19-41 [facility] Basophil percentageOrdered B y: Renard Burgos on 05-22-2023 Basophils/100 WBC (Bld) 0.4 % 0-1 [facility] Eosinophils/100 WBC (Bld) 0.4 % 0-5 [facility] Hemoglobin (Bld) [Mass/Vol] 13.7 g/dL 13.0-16.5 [facility] Monocytes/100 WBC (Bld) 9.1 % 0-10 [facility] Neutrophils (Bld) [#/Vol] 6.0 10*3/uL 2.0-7.7 [facility] Neutrophils/100 WBC (Bld) 63.9 % 47-70 [facility] WBC (Bld) [#/Vol] 9.4 10*3/uL 4.4-11.0 [facility] Determination of erythrocyte mean corpuscular volume (MCV)Ordered By: Renard Burgos on 05-22-2023 MCV (RBC) [Entitic vol] 91.8 fL 80-94 [facility] Erythrocyte distribution wid th ratioOrdered By: Renard Burgos on 05-22-2023 Erythrocyte distribution width (RBC) [Ratio] 12.8 % 11.6-14.6 [facility] Erythrocyte distribution wid th standard deviationOrdered By: Renard Burgos on 05-22-2023 Erythrocyte distribution width (RBC) [Entitic vol] 43.4 fL 35.1-43.9 [facility] Hematocrit Auto (Bld) [Volum e fraction]Ordered By: Renard Burgos on 05-22-2023 Hematocrit (Bld) [Volume fraction] 41.5 % 40-54 [facility] Immature granulocytes/100 WB C Auto (Bld)Ordered By: Renard Burgos on 05-22-2023 Immature granulocytes/100 WBC (Bld) 0.600 % 0.0-0.9 [facility] Comment on above: IG% - Immature Granu locytes (promyelocytes, myelocytes and metamyelocytes) > 1% indicates that a LEFT SHIFT is Present. Laboratory - Hematology and Cell countsOrdered By: Renard Burgos on 05-22-2023 MCH (RBC) [Entitic mass] 30.3 pg 27.0-32.0 [facility] MCHC (RBC) [Mass/Vol] 33.0 g/dL 32-36 [facility] Nucleated RBC/100 WBC (Bld) [Ratio] 0 % 0-5 [facility] Platelets (Bld) [#/Vol] 192 10*3/uL 150-450 [facility] Platelet mean volume Adam-Ec ker (Bld) [Entitic vol]Ordered By: Renard Burgos on 05-22-2023 Platelet mean volume (Bld) [Entitic vol] 11.3 fL 6.2-12.0 [facility] RBC Auto (Bld) [#/Vol]Ordere d By: Renard Burgos on 05-22-2023 RBC (Bld) [#/Vol] 4.52 10*6/uL 4.6-6.2 [facility] Absolute lymphocyte countOrd ered By: Renard Burgos on 05-15-2023 Lymphocytes Auto (Unsp spec) [#/Vol] 2.11 10*3/uL 0.83-4.51 [facility] Basophil percentageOrdered B y: Renard Burgos on 05-15-2023 Basophils/100 WBC (Bld) 0.6 % 0-1 [facility] Eosinophils/100 WBC (Bld) 0.8 % 0-5 [facility] Neutrophils (Bld) [#/Vol] 4.9 10*3/uL 2.0-7.7 [facility] Neutrophils/100 WBC (Bld) 62.4 % 47-70 [facility] WBC (Bld) [#/Vol] 7.9 10*3/uL 4.4-11.0 [facility] Blood erythrocytes count (nu mber/volume)Ordered By: Renard uBrgos on 05-15-2023 RBC (Bld) [#/Vol] 4.61 10*6/uL 4.6-6.2 [facility] Blood hemoglobin measurement (mass/volume)Ordered By: Renard Burgos on 05-15-2023 Hemoglobin (Bld) [Mass/Vol] 13.9 g/dL 13.0-16.5 [facility] Blood lymphocytes/100 leukoc ytesOrdered By: Renard Burgos on 05-15-2023 Lymphocytes/100 WBC (Bld) 26.7 % 19-41 [facility] Blood monocytes/100 leukocyt esOrdered By: Renard Burgos on 05-15-2023 Monocytes/100 WBC (Bld) 9.1 % 0-10 [facility] Blood platelet mean volumeOr dered By: Renard Burgos on 05-15-2023 Platelet mean volume (Bld) [Entitic vol] 10.7 fL 6.2-12.0 [facility] Determination of erythrocyte mean corpuscular volume (MCV)Ordered By: Renard Burgos on 05-15-2023 MCV (RBC) [Entitic vol] 90.5 fL 80-94 [facility] Hematocrit Auto (Bld) [Volum e fraction]Ordered By: Renard Burgos on 05-15-2023 Hematocrit (Bld) [Volume fraction] 41.7 % 40-54 [facility] Laboratory - Hematology and Cell countsOrdered By: Renard Burgos on 05-15-2023 Erythrocyte distribution width (RBC) [Entitic vol] 42.4 fL 35.1-43.9 [facility] Erythrocyte distribution width (RBC) [Ratio] 12.9 % 11.6-14.6 [facility] Immature granulocytes/100 WBC (Bld) 0.400 % 0.0-0.9 [facility] Comment on above: IG% - Immature Granu locytes (promyelocytes, myelocytes and metamyelocytes) > 1% indicates that a LEFT SHIFT is Present. MCH (RBC) [Entitic mass] 30.2 pg 27.0-32.0 [facility] Nucleated RBC/100 WBC (Bld) [Ratio] 0 % 0-5 [facility] MCHC Auto (RBC) [Mass/Vol]Or dered By: Renard Burgos on 05-15-2023 MCHC (RBC) [Mass/Vol] 33.3 g/dL 32-36 [facility] Platelets bldOrdered By: Lyubov Burgos on 05-15-2023 Platelets (Bld) [#/Vol] 202 10*3/uL 150-450 [facility] Absolute lymphocyte countOrd ered By: Renard Burgos on 05-08-2023 Lymphocytes Auto (Unsp spec) [#/Vol] 2.06 10*3/uL 0.83-4.51 [facility] Basophil percentageOrdered B y: Renard Burgos on 05-08-2023 Basophils/100 WBC (Bld) 0.4 % 0-1 [facility] Eosinophils/100 WBC (Bld) 0.5 % 0-5 [facility] Neutrophils (Bld) [#/Vol] 5.0 10*3/uL 2.0-7.7 [facility] Neutrophils/100 WBC (Bld) 65.7 % 47-70 [facility] WBC (Bld) [#/Vol] 7.5 10*3/uL 4.4-11.0 [facility] Blood erythrocytes count (nu mber/volume)Ordered By: Renard Burgos on 05-08-2023 RBC (Bld) [#/Vol] 4.62 10*6/uL 4.6-6.2 [facility] Blood hemoglobin measurement (mass/volume)Ordered By: Renard Burgos on 05-08-2023 Hemoglobin (Bld) [Mass/Vol] 13.6 g/dL 13.0-16.5 [facility] Blood lymphocytes/100 leukoc ytesOrdered By: Renard Burgos on 05-08-2023 Lymphocytes/100 WBC (Bld) 27.4 % 19-41 [facility] Blood monocytes/100 leukocyt esOrdered By: Renard Burgos on 05-08-2023 Monocytes/100 WBC (Bld) 5.6 % 0-10 [facility] Blood platelet mean volumeOr dered By: Renard Burgos on 05-08-2023 Platelet mean volume (Bld) [Entitic vol] 11.0 fL 6.2-12.0 [facility] Determination of erythrocyte mean corpuscular volume (MCV)Ordered By: Renard Burgos on 05-08-2023 MCV (RBC) [Entitic vol] 91.8 fL 80-94 [facility] Hematocrit Auto (Bld) [Volum e fraction]Ordered By: Renard Burgos on 05-08-2023 Hematocrit (Bld) [Volume fraction] 42.4 % 40-54 [facility] Laboratory - Hematology and Cell countsOrdered By: Renard Burgos on 05-08-2023 Erythrocyte distribution width (RBC) [Entitic vol] 43.1 fL 35.1-43.9 [facility] Erythrocyte distribution width (RBC) [Ratio] 13.0 % 11.6-14.6 [facility] Immature granulocytes/100 WBC (Bld) 0.400 % 0.0-0.9 [facility] Comment on above: IG% - Immature Granu locytes (promyelocytes, myelocytes and metamyelocytes) > 1% indicates that a LEFT SHIFT is Present. MCH (RBC) [Entitic mass] 29.4 pg 27.0-32.0 [facility] Nucleated RBC/100 WBC (Bld) [Ratio] 0 % 0-5 [facility] MCHC Auto (RBC) [Mass/Vol]Or dered By: Renard Burgos on 05-08-2023 MCHC (RBC) [Mass/Vol] 32.1 g/dL 32-36 [facility] Platelets bldOrdered By: Lyubov Burgos on 05-08-2023 Platelets (Bld) [#/Vol] 226 10*3/uL 150-450 [facility] Absolute lymphocyte countOrd ered By: Renard Burgos on 04-17-2023 Lymphocytes Auto (Unsp spec) [#/Vol] 0.92 10*3/uL 0.83-4.51 [facility] Basophil percentageOrdered B y: Renard Burgos on 04-17-2023 Basophils/100 WBC (Bld) 0.1 % 0-1 [facility] Eosinophils/100 WBC (Bld) 0.0 % 0-5 [facility] Neutrophils (Bld) [#/Vol] 6.0 10*3/uL 2.0-7.7 [facility] Neutrophils/100 WBC (Bld) 81.4 % 47-70 [facility] WBC (Bld) [#/Vol] 7.4 10*3/uL 4.4-11.0 [facility] Blood erythrocytes count (nu mber/volume)Ordered By: Renard Burgos on 04-17-2023 RBC (Bld) [#/Vol] 4.59 10*6/uL 4.6-6.2 [facility] Blood hemoglobin measurement (mass/volume)Ordered By: Renard Burgos on 04-17-2023 Hemoglobin (Bld) [Mass/Vol] 13.7 g/dL 13.0-16.5 [facility] Blood lymphocytes/100 leukoc ytesOrdered By: Renard Burgos on 04-17-2023 Lymphocytes/100 WBC (Bld) 12.5 % 19-41 [facility] Blood monocytes/100 leukocyt esOrdered By: Renard Burgos on 04-17-2023 Monocytes/100 WBC (Bld) 5.6 % 0-10 [facility] Blood platelet mean volumeOr dered By: Renard Burgos on 04-17-2023 Platelet mean volume (Bld) [Entitic vol] 10.9 fL 6.2-12.0 [facility] Determination of erythrocyte mean corpuscular volume (MCV)Ordered By: Renard Burgos on 04-17-2023 MCV (RBC) [Entitic vol] 90.8 fL 80-94 [facility] Hematocrit Auto (Bld) [Volum e fraction]Ordered By: Renard Burgos on 04-17-2023 Hematocrit (Bld) [Volume fraction] 41.7 % 40-54 [facility] Laboratory - Hematology and Cell countsOrdered By: Renard Burgos on 04-17-2023 Erythrocyte distribution width (RBC) [Entitic vol] 42.3 fL 35.1-43.9 [facility] Erythrocyte distribution width (RBC) [Ratio] 12.8 % 11.6-14.6 [facility] Immature granulocytes/100 WBC (Bld) 0.400 % 0.0-0.9 [facility] Comment on above: IG% - Immature Granu locytes (promyelocytes, myelocytes and metamyelocytes) > 1% indicates that a LEFT SHIFT is Present. MCH (RBC) [Entitic mass] 29.8 pg 27.0-32.0 [facility] Nucleated RBC/100 WBC (Bld) [Ratio] 0 % 0-5 [facility] MCHC Auto (RBC) [Mass/Vol]Or dered By: Renard Burgos on 04-17-2023 MCHC (RBC) [Mass/Vol] 32.9 g/dL 32-36 [facility] Platelets bldOrdered By: Lyubov Burgos on 04-17-2023 Platelets (Bld) [#/Vol] 194 10*3/uL 150-450 [facility] Basophil percentageOrdered B y: Renard Burgos on 04-14-2023 Bilirubin [Mass/Vol] 0.30 mg/dL 0.20-1.00 [facility] Comment on above: For patients on eltr ombopag therapy, use of Dimension [place] TBIL is not recommended. Protein [Mass/Vol] 6.2 g/dL 6.4-8.2 [facility] Direct bilirubinOrdered By: Renard Burgos on 04-14-2023 Bilirubin.direct [Mass/Vol] 0.11 mg/dL 0.00-0.30 [facility] Laboratory - Chemistry and C hemistry - challengeOrdered By: Renard Burgos on 04-14-2023 ALP [Catalytic activity/Vol] 139 U/L 45-117 [facility] ALT [Catalytic activity/Vol] 23 U/L 16-61 [facility] Globulin (S) [Mass/Vol] 3.2 g/dL 2.2-4.2 [facility] Serum or plasma albumin gordy urement (mass/volume)Ordered By: Renard Burgos on 04-14-2023 Albumin [Mass/Vol] 3.0 g/dL 3.2-5.0 [facility] Thin prep Papanicolaou smear with manual screeningOrdered By: Renard Burgos on 04-14-2023 Thin prep Papanicolaou smear with manual screening 14 U/L 15-37 [facility] Absolute lymphocyte countOrd ered By: Renard Burgos on 04-10-2023 Lymphocytes Auto (Unsp spec) [#/Vol] 2.54 10*3/uL 0.83-4.51 [facility] Basophil percentageOrdered B y: Renard Burgos on 04-10-2023 Basophils/100 WBC (Bld) 0.5 % 0-1 [facility] Eosinophils/100 WBC (Bld) 0.5 % 0-5 [facility] Neutrophils (Bld) [#/Vol] 5.1 10*3/uL 2.0-7.7 [facility] Neutrophils/100 WBC (Bld) 59.0 % 47-70 [facility] WBC (Bld) [#/Vol] 8.7 10*3/uL 4.4-11.0 [facility] Blood erythrocytes count (nu mber/volume)Ordered By: Renard Burgos on 04-10-2023 RBC (Bld) [#/Vol] 4.84 10*6/uL 4.6-6.2 [facility] Blood hemoglobin measurement (mass/volume)Ordered By: Renard Burgos on 04-10-2023 Hemoglobin (Bld) [Mass/Vol] 14.2 g/dL 13.0-16.5 [facility] Blood lymphocytes/100 leukoc ytesOrdered By: Renard Burgos on 04-10-2023 Lymphocytes/100 WBC (Bld) 29.4 % 19-41 [facility] Blood monocytes/100 leukocyt esOrdered By: Renard Burgos on 04-10-2023 Monocytes/100 WBC (Bld) 10.3 % 0-10 [facility] Blood platelet mean volumeOr dered By: Renard Burgos on 04-10-2023 Platelet mean volume (Bld) [Entitic vol] 11.1 fL 6.2-12.0 [facility] Determination of erythrocyte mean corpuscular volume (MCV)Ordered By: Renard Burgos on 04-10-2023 MCV (RBC) [Entitic vol] 91.5 fL 80-94 [facility] Hematocrit Auto (Bld) [Volum e fraction]Ordered By: Renard Burgos on 04-10-2023 Hematocrit (Bld) [Volume fraction] 44.3 % 40-54 [facility] Laboratory - Hematology and Cell countsOrdered By: Renard Burgos on 04-10-2023 Erythrocyte distribution width (RBC) [Entitic vol] 41.9 fL 35.1-43.9 [facility] Erythrocyte distribution width (RBC) [Ratio] 12.6 % 11.6-14.6 [facility] Immature granulocytes/100 WBC (Bld) 0.300 % 0.0-0.9 [facility] Comment on above: IG% - Immature Granu locytes (promyelocytes, myelocytes and metamyelocytes) > 1% indicates that a LEFT SHIFT is Present. MCH (RBC) [Entitic mass] 29.3 pg 27.0-32.0 [facility] Nucleated RBC/100 WBC (Bld) [Ratio] 0 % 0-5 [facility] MCHC Auto (RBC) [Mass/Vol]Or dered By: Renard Burgos on 04-10-2023 MCHC (RBC) [Mass/Vol] 32.1 g/dL 32-36 [facility] Platelets bldOrdered By: Lyubov Burgos on 04-10-2023 Platelets (Bld) [#/Vol] 216 10*3/uL 150-450 [facility] Absolute lymphocyte countOrd ered By: Renard Burgos on 04-03-2023 Lymphocytes Auto (Unsp spec) [#/Vol] 1.91 10*3/uL 0.83-4.51 [facility] Basophil percentageOrdered B y: Renard Burgos on 04-03-2023 Basophils/100 WBC (Bld) 0.5 % 0-1 [facility] Eosinophils/100 WBC (Bld) 0.5 % 0-5 [facility] Neutrophils (Bld) [#/Vol] 5.0 10*3/uL 2.0-7.7 [facility] Neutrophils/100 WBC (Bld) 66.5 % 47-70 [facility] WBC (Bld) [#/Vol] 7.6 10*3/uL 4.4-11.0 [facility] Blood erythrocytes count (nu mber/volume)Ordered By: Renard Burgos on 04-03-2023 RBC (Bld) [#/Vol] 4.62 10*6/uL 4.6-6.2 [facility] Blood hemoglobin measurement (mass/volume)Ordered By: Renard Burgos on 04-03-2023 Hemoglobin (Bld) [Mass/Vol] 13.7 g/dL 13.0-16.5 [facility] Blood lymphocytes/100 leukoc ytesOrdered By: Renard Burgos on 04-03-2023 Lymphocytes/100 WBC (Bld) 25.2 % 19-41 [facility] Blood monocytes/100 leukocyt esOrdered By: Renard Burgos on 04-03-2023 Monocytes/100 WBC (Bld) 6.9 % 0-10 [facility] Blood platelet mean volumeOr dered By: Renard Burgos on 04-03-2023 Platelet mean volume (Bld) [Entitic vol] 10.8 fL 6.2-12.0 [facility] Determination of erythrocyte mean corpuscular volume (MCV)Ordered By: Renard Burgos on 04-03-2023 MCV (RBC) [Entitic vol] 91.6 fL 80-94 [facility] Hematocrit Auto (Bld) [Volum e fraction]Ordered By: Renard Burgos on 04-03-2023 Hematocrit (Bld) [Volume fraction] 42.3 % 40-54 [facility] Laboratory - Hematology and Cell countsOrdered By: Renard Burgos on 04-03-2023 Erythrocyte distribution width (RBC) [Entitic vol] 42.6 fL 35.1-43.9 [facility] Erythrocyte distribution width (RBC) [Ratio] 12.8 % 11.6-14.6 [facility] Immature granulocytes/100 WBC (Bld) 0.400 % 0.0-0.9 [facility] Comment on above: IG% - Immature Granu locytes (promyelocytes, myelocytes and metamyelocytes) > 1% indicates that a LEFT SHIFT is Present. MCH (RBC) [Entitic mass] 29.7 pg 27.0-32.0 [facility] Nucleated RBC/100 WBC (Bld) [Ratio] 0 % 0-5 [facility] MCHC Auto (RBC) [Mass/Vol]Or dered By: Renard Burgos on 04-03-2023 MCHC (RBC) [Mass/Vol] 32.4 g/dL 32-36 [facility] Platelets bldOrdered By: Lyubov Burgos on 04-03-2023 Platelets (Bld) [#/Vol] 216 10*3/uL 150-450 [facility] Absolute lymphocyte countOrd ered By: Renard Burgos on 03-27-2023 Lymphocytes Auto (Unsp spec) [#/Vol] 2.06 10*3/uL 0.83-4.51 [facility] Basophil percentageOrdered B y: Renard Burgos on 03-27-2023 Basophils/100 WBC (Bld) 0.4 % 0-1 [facility] Eosinophils/100 WBC (Bld) 0.2 % 0-5 [facility] Neutrophils (Bld) [#/Vol] 6.3 10*3/uL 2.0-7.7 [facility] Neutrophils/100 WBC (Bld) 68.8 % 47-70 [facility] WBC (Bld) [#/Vol] 9.1 10*3/uL 4.4-11.0 [facility] Blood erythrocytes count (nu mber/volume)Ordered By: Renard Burgos on 03-27-2023 RBC (Bld) [#/Vol] 4.51 10*6/uL 4.6-6.2 [facility] Blood hemoglobin measurement (mass/volume)Ordered By: Renard Burgos on 03-27-2023 Hemoglobin (Bld) [Mass/Vol] 13.2 g/dL 13.0-16.5 [facility] Blood lymphocytes/100 leukoc ytesOrdered By: Renard Burgos on 03-27-2023 Lymphocytes/100 WBC (Bld) 22.6 % 19-41 [facility] Blood monocytes/100 leukocyt esOrdered By: Renard Burgos on 03-27-2023 Monocytes/100 WBC (Bld) 7.3 % 0-10 [facility] Blood platelet mean volumeOr dered By: Renard Burgos on 03-27-2023 Platelet mean volume (Bld) [Entitic vol] 10.8 fL 6.2-12.0 [facility] Determination of erythrocyte mean corpuscular volume (MCV)Ordered By: Renard Burgos on 03-27-2023 MCV (RBC) [Entitic vol] 91.6 fL 80-94 [facility] Hematocrit Auto (Bld) [Volum e fraction]Ordered By: Renard Burgos on 03-27-2023 Hematocrit (Bld) [Volume fraction] 41.3 % 40-54 [facility] Laboratory - Hematology and Cell countsOrdered By: Renard Burgos on 03-27-2023 Erythrocyte distribution width (RBC) [Entitic vol] 42.9 fL 35.1-43.9 [facility] Erythrocyte distribution width (RBC) [Ratio] 12.9 % 11.6-14.6 [facility] Immature granulocytes/100 WBC (Bld) 0.700 % 0.0-0.9 [facility] Comment on above: IG% - Immature Granu locytes (promyelocytes, myelocytes and metamyelocytes) > 1% indicates that a LEFT SHIFT is Present. MCH (RBC) [Entitic mass] 29.3 pg 27.0-32.0 [facility] Nucleated RBC/100 WBC (Bld) [Ratio] 0 % 0-5 [facility] MCHC Auto (RBC) [Mass/Vol]Or dered By: Renard Burgos on 03-27-2023 MCHC (RBC) [Mass/Vol] 32.0 g/dL 32-36 [facility] Platelets bldOrdered By: Lyubov Burgos on 03-27-2023 Platelets (Bld) [#/Vol] 205 10*3/uL 150-450 [facility] Absolute lymphocyte countOrd ered By: Renard Burgos on 03-20-2023 Lymphocytes Auto (Unsp spec) [#/Vol] 1.89 10*3/uL 0.83-4.51 [facility] Basophil percentageOrdered B y: Renard Burgos on 03-20-2023 Basophils/100 WBC (Bld) 0.5 % 0-1 [facility] Chloride [Moles/Vol] 107 mmol/L 98-107 [facility] Eosin[facility]/100 WBC (Bld) 0.4 % 0-5 [facility] Glucose [Mass/Vol] 124 mg/dL 74-106 [facility] Comment on above: Fasting Glucose resu lt from 100 to 125 mg/dL suggests IMPAIRED HOMEOSTASIS per A.D.A. criteria. Neutrophils (Bld) [#/Vol] 4.8 10*3/uL 2.0-7.7 [facility] Neutrophils/100 WBC (Bld) 64.9 % 47-70 [facility] Potassium [Moles/Vol] 3.6 mmol/L 3.5-5.1 [facility] Sodium [Moles/Vol] 142 mmol/L 136-145 [facility] WBC (Bld) [#/Vol] 7.4 10*3/uL 4.4-11.0 [facility] Blood erythrocytes count (nu mber/volume)Ordered By: Renard Burgos on 03-20-2023 RBC (Bld) [#/Vol] 4.63 10*6/uL 4.6-6.2 [facility] Blood hemoglobin measurement (mass/volume)Ordered By: Renard Burgos on 03-20-2023 Hemoglobin (Bld) [Mass/Vol] 13.7 g/dL 13.0-16.5 [facility] Blood lymphocytes/100 leukoc ytesOrdered By: Renard Burgos on 03-20-2023 Lymphocytes/100 WBC (Bld) 25.7 % 19-41 [facility] Blood monocytes/100 leukocyt esOrdered By: Renard Burgos on 03-20-2023 Monocytes/100 WBC (Bld) 8.2 % 0-10 [facility] Blood platelet mean volumeOr dered By: Renard Burogs on 03-20-2023 Platelet mean volume (Bld) [Entitic vol] 10.7 fL 6.2-12.0 [facility] Determination of erythrocyte mean corpuscular volume (MCV)Ordered By: Renard Burgos on 03-20-2023 MCV (RBC) [Entitic vol] 90.9 fL 80-94 [facility] Hematocrit Auto (Bld) [Volum e fraction]Ordered By: Renard Burgos on 03-20-2023 Hematocrit (Bld) [Volume fraction] 42.1 % 40-54 [facility] Laboratory - Chemistry and C hemistry - challengeOrdered By: Renard Burgos on 03-20-2023 CO2 [Moles/Vol] 29.0 mmol/L 21.0-32.0 [facility] Urea nitrogen/Creatinine [Mass ratio] 30.7 mg/mg - [facility] - Hematology and Cell countsOrdered By: Renard Burgos on 03-20-2023 Erythrocyte distribution width (RBC) [Entitic vol] 43.0 fL 35.1-43.9 [facility] Erythrocyte distribution width (RBC) [Ratio] 12.9 % 11.6-14.6 [facility] Immature granulocytes/100 WBC (Bld) 0.300 % 0.0-0.9 [facility] Comment on above: IG% - Immature Granu locytes (promyelocytes, myelocytes and metamyelocytes) > 1% indicates that a LEFT SHIFT is Present. MCH (RBC) [Entitic mass] 29.6 pg 27.0-32.0 [facility] Nucleated RBC/100 WBC (Bld) [Ratio] 0 % 0-5 [facility] MCHC Auto (RBC) [Mass/Vol]Or dered By: Renard Burgos on 03-20-2023 MCHC (RBC) [Mass/Vol] 32.5 g/dL 32-36 [facility] No Panel InformationOrdered By: Renard Burgos on 03-20-2023 Estimated GFR (MDRD) Amer 178 mL/min >60 [facility] Comment on above: GFR Calc Estimated GFR (MDRD) Non-Af Amer 147 mL/min >60 [facility] Comment on above: Non- GFR Calc Platelets bldOrdered By: Lyubov Burgos on 03-20-2023 Platelets (Bld) [#/Vol] 208 10*3/uL 150-450 [facility] Serum or plasma calcium gordy urement (mass/volume)Ordered By: Renard Burgos on 03-20-2023 Calcium [Mass/Vol] 8.1 mg/dL 8.5-10.1 [facility] Serum or plasma creatinine m easurement (mass/volume)Ordered By: Renard Burgos on 03-20-2023 Creatinine [Mass/Vol] 0.59 mg/dL 0.70-1.30 [facility] Comment on above: The validity of the calculated GFR & GFRAA in patients over 70 years has not been determined. Clinical correlation is essential. Serum or plasma urea nitroge n measurement (mass/volume)Ordered By: Renard Burgos on 03-20-2023 Urea nitrogen [Mass/Vol] 18 mg/dL 7-18 [facility] Thin prep Papanicolaou smear with manual screeningOrdered By: Renard Burgos on 03-20-2023 Thin prep Papanicolaou smear with manual screening 6 5-15 [facility] Erythrocyte sedimentation ra teOrdered By: Renard Burgos on 03-16-2023 ESR (Bld) [Velocity] 3 mm/h 0-20 [facility] Absolute lymphocyte countOrd ered By: Renard Burgos on 03-13-2023 Lymphocytes Auto (Unsp spec) [#/Vol] 2.36 10*3/uL 0.83-4.51 [facility] Basophil percentageOrdered B y: Renard Burgos on 03-13-2023 Basophils/100 WBC (Bld) 0.5 % 0-1 [facility] Eosinophils/100 WBC (Bld) 0.5 % 0-5 [facility] Neutrophils (Bld) [#/Vol] 5.2 10*3/uL 2.0-7.7 [facility] Neutrophils/100 WBC (Bld) 61.3 % 47-70 [facility] WBC (Bld) [#/Vol] 8.5 10*3/uL 4.4-11.0 [facility] Blood erythrocytes count (nu mber/volume)Ordered By: Renard Burgos on 03-13-2023 RBC (Bld) [#/Vol] 4.55 10*6/uL 4.6-6.2 [facility] Blood hemoglobin measurement (mass/volume)Ordered By: Renard Burgos on 03-13-2023 Hemoglobin (Bld) [Mass/Vol] 13.4 g/dL 13.0-16.5 [facility] Blood lymphocytes/100 leukoc ytesOrdered By: Renard Burgos on 03-13-2023 Lymphocytes/100 WBC (Bld) 27.7 % 19-41 [facility] Blood monocytes/100 leukocyt esOrdered By: Renard Burgos on 03-13-2023 Monocytes/100 WBC (Bld) 9.5 % 0-10 [facility] Blood platelet mean volumeOr dered By: Renard Burgos on 03-13-2023 Platelet mean volume (Bld) [Entitic vol] 10.6 fL 6.2-12.0 [facility] Determination of erythrocyte mean corpuscular volume (MCV)Ordered By: Renard Burgos on 03-13-2023 MCV (RBC) [Entitic vol] 93.4 fL 80-94 [facility] Hematocrit Auto (Bld) [Volum e fraction]Ordered By: Renard Burgos on 03-13-2023 Hematocrit (Bld) [Volume fraction] 42.5 % 40-54 [facility] Laboratory - Hematology and Cell countsOrdered By: Renard Burgos on 03-13-2023 Erythrocyte distribution width (RBC) [Entitic vol] 44.1 fL 35.1-43.9 [facility] Erythrocyte distribution width (RBC) [Ratio] 13.0 % 11.6-14.6 [facility] Immature granulocytes/100 WBC (Bld) 0.500 % 0.0-0.9 [facility] Comment on above: IG% - Immature Granu locytes (promyelocytes, myelocytes and metamyelocytes) > 1% indicates that a LEFT SHIFT is Present. MCH (RBC) [Entitic mass] 29.5 pg 27.0-32.0 [facility] Nucleated RBC/100 WBC (Bld) [Ratio] 0 % 0-5 [facility] MCHC Auto (RBC) [Mass/Vol]Or dered By: Renard Burgos on 03-13-2023 MCHC (RBC) [Mass/Vol] 31.5 g/dL 32-36 [facility] Platelets bldOrdered By: Lyubov Burgos on 03-13-2023 Platelets (Bld) [#/Vol] 200 10*3/uL 150-450 [facility] Absolute lymphocyte countOrd ered By: Renard Burgos on 03-06-2023 Lymphocytes Auto (Unsp spec) [#/Vol] 1.80 10*3/uL 0.83-4.51 [facility] Basophil percentageOrdered B y: Renard Burgos on 03-06-2023 Basophils/100 WBC (Bld) 0.5 % 0-1 [facility] Bilirubin [Mass/Vol] 0.40 mg/dL 0.20-1.00 [facility] Comment on above: For patients on eltr ombopag therapy, use of Dimension [place] TBIL is not recommended. Chloride [Moles/Vol] 107 mmol/L 98-107 [facility] Cholesterol [Mass/Vol] 118 mg/dL <200 [facility] Comment on above: <200 mg/dL Desirable 200-240 mg/dL Borderline >240 mg/dL High Risk Eosinophils/100 WBC (Bld) 0.5 % 0-5 [facility] Glucose [Mass/Vol] 107 mg/dL 74-106 [facility] Comment on above: Fasting Glucose resu lt from 100 to 125 mg/dL suggests IMPAIRED HOMEOSTASIS per A.D.A. criteria. Neutrophils (Bld) [#/Vol] 5.5 10*3/uL 2.0-7.7 [facility] Neutrophils/100 WBC (Bld) 68.0 % 47-70 [facility] Potassium [Moles/Vol] 3.8 mmol/L 3.5-5.1 [facility] Protein [Mass/Vol] 6.3 g/dL 6.4-8.2 [facility] Sodium [Moles/Vol] 141 mmol/L 136-145 [facility] Triglyceride [Mass/Vol] 185 mg/dL <199 [facility] Comment on above: The drugs N-Acetylcy steine and Metamizole may falsely depress this assay.Serum Triglycerides Reference Interval Normal <150 mg/dL Borderline high 150 - 199 mg/dL High 200 - 499 mg/dL Very High > or = 500 mg/dL WBC (Bld) [#/Vol] 8.1 10*3/uL 4.4-11.0 [facility] Blood erythrocytes count (nu mber/volume)Ordered By: Renard Burgos on 03-06-2023 RBC (Bld) [#/Vol] 4.69 10*6/uL 4.6-6.2 [facility] Blood hemoglobin measurement (mass/volume)Ordered By: Renard Burgos on 03-06-2023 Hemoglobin (Bld) [Mass/Vol] 14.0 g/dL 13.0-16.5 [facility] Blood lymphocytes/100 leukoc ytesOrdered By: Renard Burgos on 03-06-2023 Lymphocytes/100 WBC (Bld) 22.3 % 19-41 [facility] Blood monocytes/100 leukocyt esOrdered By: Renard Burgos on 03-06-2023 Monocytes/100 WBC (Bld) 8.2 % 0-10 [facility] Blood platelet mean volumeOr dered By: Renard Burgos on 03-06-2023 Platelet mean volume (Bld) [Entitic vol] 10.9 fL 6.2-12.0 [facility] Determination of erythrocyte mean corpuscular volume (MCV)Ordered By: Renard Burgos on 03-06-2023 MCV (RBC) [Entitic vol] 91.9 fL 80-94 [facility] Hematocrit Auto (Bld) [Volum e fraction]Ordered By: Renard Burgos on 03-06-2023 Hematocrit (Bld) [Volume fraction] 43.1 % 40-54 [facility] Laboratory - Chemistry and C hemistry - challengeOrdered By: Renard Burgos on 03-06-2023 ALP [Catalytic activity/Vol] 120 U/L 45-117 [facility] ALT [Catalytic activity/Vol] 20 U/L 16-61 [facility] CO2 [Moles/Vol] 30.0 mmol/L 21.0-32.0 [facility] Globulin (S) [Mass/Vol] 3.3 g/dL 2.2-4.2 [facility] Urea nitrogen/Creatinine [Mass ratio] 27.1 mg/mg 10-20 [facility] Laboratory - Hematology and Cell countsOrdered By: Renard Burgos on 03-06-2023 Erythrocyte distribution width (RBC) [Entitic vol] 42.5 fL 35.1-43.9 [facility] Erythrocyte distribution width (RBC) [Ratio] 12.9 % 11.6-14.6 [facility] Immature granulocytes/100 WBC (Bld) 0.500 % 0.0-0.9 [facility] Comment on above: IG% - Immature Granu locytes (promyelocytes, myelocytes and metamyelocytes) > 1% indicates that a LEFT SHIFT is Present. MCH (RBC) [Entitic mass] 29.9 pg 27.0-32.0 [facility] Nucleated RBC/100 WBC (Bld) [Ratio] 0 % 0-5 [facility] MCHC Auto (RBC) [Mass/Vol]Or dered By: Renard Burgos on 03-06-2023 MCHC (RBC) [Mass/Vol] 32.5 g/dL 32-36 [facility] No Panel InformationOrdered By: Renard Burgos on 03-06-2023 Estimated GFR (MDRD) Amer 165 mL/min >60 [facility] Comment on above: GFR Calc Estimated GFR (MDRD) Non-Af Amer 136 mL/min >60 [facility] Comment on above: Non- GFR Calc Platelets bldOrdered By: Lyubov Burgos on 03-06-2023 Platelets (Bld) [#/Vol] 232 10*3/uL 150-450 [facility] Serum or plasma albumin gordy urement (mass/volume)Ordered By: Renard Burgos on 03-06-2023 Albumin [Mass/Vol] 3.0 g/dL 3.2-5.0 [facility] Serum or plasma albumin/glob ulin mass ratioOrdered By: Renard Burgos on 03-06-2023 Albumin/Globulin [Mass ratio] 0.9 {ratio} 0.9-2.4 [facility] Serum or plasma calcium gordy urement (mass/volume)Ordered By: Renard Burgos on 03-06-2023 Calcium [Mass/Vol] 8.2 mg/dL 8.5-10.1 [facility] Serum or plasma cholesterol in HDL measurement (mass/volume)Ordered By: Renard Burgos on 03-06-2023 Cholesterol in HDL [Mass/Vol] 25 mg/dL >40 [facility] Comment on above: The drugs N-Acetylcy steine and Metamizole may falsely depress this assay. Reference Range HDL <40 mg/dL Low HDL Cholesterol HDL >or= 60 mg/dL High HDL Cholesterol Serum or plasma cholesterol in VLDL measurement (mass/volume)Ordered By: Renard Burgos on 03-06-2023 Cholesterol in VLDL [Mass/Vol] 37 mg/dL 5-40 [facility] Serum or plasma creatinine m easurement (mass/volume)Ordered By: Renard Burgos on 03-06-2023 Creatinine [Mass/Vol] 0.63 mg/dL 0.70-1.30 [facility] Comment on above: The validity of the calculated GFR & GFRAA in patients over 70 years has not been determined. Clinical correlation is essential. Serum or plasma low density lipoprotein (LDL) cholesterol measurement (mass/volume)Ordered By: Renard Burgos on 03-06-2023 Cholesterol in LDL [Mass/Vol] 56 mg/dL 0-130 [facility] Serum or plasma urea nitroge n measurement (mass/volume)Ordered By: Renard Burgos on 03-06-2023 Urea nitrogen [Mass/Vol] 17 mg/dL 7-18 [facility] Thin prep Papanicolaou smear with manual screeningOrdered By: Renard Burgos on 03-06-2023 Thin prep Papanicolaou smear with manual screening 10 U/L 15-37 [facility] Thin prep Papanicolaou smear with manual screening 4 5-15 [facility] Absolute lymphocyte countOrd ered By: Renard Burgos on 02-27-2023 Lymphocytes Auto (Unsp spec) [#/Vol] 2.13 10*3/uL 0.83-4.51 [facility] Basophil percentageOrdered B y: Renard Burgos on 02-27-2023 Basophils/100 WBC (Bld) 0.6 % 0-1 [facility] Eosinophils/100 WBC (Bld) 0.6 % 0-5 [facility] Neutrophils (Bld) [#/Vol] 5.1 10*3/uL 2.0-7.7 [facility] Neutrophils/100 WBC (Bld) 63.3 % 47-70 [facility] WBC (Bld) [#/Vol] 8.1 10*3/uL 4.4-11.0 [facility] Blood erythrocytes count (nu mber/volume)Ordered By: Renard Burgos on 02-27-2023 RBC (Bld) [#/Vol] 4.54 10*6/uL 4.6-6.2 [facility] Blood hemoglobin measurement (mass/volume)Ordered By: Renard Burgos on 02-27-2023 Hemoglobin (Bld) [Mass/Vol] 13.7 g/dL 13.0-16.5 [facility] Blood lymphocytes/100 leukoc ytesOrdered By: Renard Burgos on 02-27-2023 Lymphocytes/100 WBC (Bld) 26.4 % 19-41 [facility] Blood monocytes/100 leukocyt esOrdered By: Renard Burgos on 02-27-2023 Monocytes/100 WBC (Bld) 8.7 % 0-10 [facility] Blood platelet mean volumeOr dered By: Renard Burgos on 02-27-2023 Platelet mean volume (Bld) [Entitic vol] 10.8 fL 6.2-12.0 [facility] Determination of erythrocyte mean corpuscular volume (MCV)Ordered By: Renard Burgos on 02-27-2023 MCV (RBC) [Entitic vol] 89.9 fL 80-94 [facility] Hematocrit Auto (Bld) [Volum e fraction]Ordered By: Renard Burgos on 02-27-2023 Hematocrit (Bld) [Volume fraction] 40.8 % 40-54 [facility] Laboratory - Hematology and Cell countsOrdered By: Renard Burgos on 02-27-2023 Erythrocyte distribution width (RBC) [Entitic vol] 41.0 fL 35.1-43.9 [facility] Erythrocyte distribution width (RBC) [Ratio] 12.5 % 11.6-14.6 [facility] Immature granulocytes/100 WBC (Bld) 0.400 % 0.0-0.9 [facility] Comment on above: IG% - Immature Granu locytes (promyelocytes, myelocytes and metamyelocytes) > 1% indicates that a LEFT SHIFT is Present. MCH (RBC) [Entitic mass] 30.2 pg 27.0-32.0 [facility] Nucleated RBC/100 WBC (Bld) [Ratio] 0 % 0-5 [facility] MCHC Auto (RBC) [Mass/Vol]Or dered By: Renard Burgos on 02-27-2023 MCHC (RBC) [Mass/Vol] 33.6 g/dL 32-36 [facility] Platelets bldOrdered By: Lyubov Burgos on 02-27-2023 Platelets (Bld) [#/Vol] 182 10*3/uL 150-450 [facility] Absolute lymphocyte countOrd ered By: Renard Burgos on 02-20-2023 Lymphocytes Auto (Unsp spec) [#/Vol] 2.23 10*3/uL 0.83-4.51 [facility] Basophil percentageOrdered B y: Renard Burgos on 02-20-2023 Basophils/100 WBC (Bld) 0.3 % 0-1 [facility] Eosinophils/100 WBC (Bld) 0.7 % 0-5 [facility] Neutrophils (Bld) [#/Vol] 5.9 10*3/uL 2.0-7.7 [facility] Neutrophils/100 WBC (Bld) 65.7 % 47-70 [facility] WBC (Bld) [#/Vol] 9.0 10*3/uL 4.4-11.0 [facility] Blood erythrocytes count (nu mber/volume)Ordered By: Renard Burgos on 02-20-2023 RBC (Bld) [#/Vol] 4.46 10*6/uL 4.6-6.2 [facility] Blood hemoglobin measurement (mass/volume)Ordered By: Renard Burgos on 02-20-2023 Hemoglobin (Bld) [Mass/Vol] 13.3 g/dL 13.0-16.5 [facility] Blood lymphocytes/100 leukoc ytesOrdered By: Renard Burgos on 02-20-2023 Lymphocytes/100 WBC (Bld) 24.7 % 19-41 [facility] Blood monocytes/100 leukocyt esOrdered By: Renard Burgos on 02-20-2023 Monocytes/100 WBC (Bld) 8.0 % 0-10 [facility] Blood platelet mean volumeOr dered By: Renard Burgos on 02-20-2023 Platelet mean volume (Bld) [Entitic vol] 10.7 fL 6.2-12.0 [facility] Determination of erythrocyte mean corpuscular volume (MCV)Ordered By: Renard Burgos on 02-20-2023 MCV (RBC) [Entitic vol] 90.6 fL 80-94 [facility] Hematocrit Auto (Bld) [Volum e fraction]Ordered By: Renard Burgos on 02-20-2023 Hematocrit (Bld) [Volume fraction] 40.4 % 40-54 [facility] Laboratory - Hematology and Cell countsOrdered By: Renard Burgos on 02-20-2023 Erythrocyte distribution width (RBC) [Entitic vol] 41.9 fL 35.1-43.9 [facility] Erythrocyte distribution width (RBC) [Ratio] 12.8 % 11.6-14.6 [facility] Immature granulocytes/100 WBC (Bld) 0.600 % 0.0-0.9 [facility] Comment on above: IG% - Immature Granu locytes (promyelocytes, myelocytes and metamyelocytes) > 1% indicates that a LEFT SHIFT is Present. MCH (RBC) [Entitic mass] 29.8 pg 27.0-32.0 [facility] Nucleated RBC/100 WBC (Bld) [Ratio] 0 % 0-5 [facility] MCHC Auto (RBC) [Mass/Vol]Or dered By: Renard Burgos on 02-20-2023 MCHC (RBC) [Mass/Vol] 32.9 g/dL 32-36 [facility] Platelets bldOrdered By: Lyubov Burgos on 02-20-2023 Platelets (Bld) [#/Vol] 220 10*3/uL 150-450 [facility] Absolute lymphocyte countOrd ered By: Renard Burgos on 02-13-2023 Lymphocytes Auto (Unsp spec) [#/Vol] 2.01 10*3/uL 0.83-4.51 [facility] Basophil percentageOrdered B y: Renard Burgos on 02-13-2023 Basophils/100 WBC (Bld) 0.7 % 0-1 [facility] Eosinophils/100 WBC (Bld) 0.5 % 0-5 [facility] Neutrophils (Bld) [#/Vol] 4.7 10*3/uL 2.0-7.7 [facility] Neutrophils/100 WBC (Bld) 63.3 % 47-70 [facility] WBC (Bld) [#/Vol] 7.4 10*3/uL 4.4-11.0 [facility] Blood erythrocytes count (nu mber/volume)Ordered By: Renard Burgos on 02-13-2023 RBC (Bld) [#/Vol] 4.46 10*6/uL 4.6-6.2 [facility] Blood hemoglobin measurement (mass/volume)Ordered By: Renard Burgos on 02-13-2023 Hemoglobin (Bld) [Mass/Vol] 13.6 g/dL 13.0-16.5 [facility] Blood lymphocytes/100 leukoc ytesOrdered By: Renard Burgos on 02-13-2023 Lymphocytes/100 WBC (Bld) 27.0 % 19-41 [facility] Blood monocytes/100 leukocyt esOrdered By: Renard Burgos on 02-13-2023 Monocytes/100 WBC (Bld) 8.1 % 0-10 [facility] Blood platelet mean volumeOr dered By: Renard Burgos on 02-13-2023 Platelet mean volume (Bld) [Entitic vol] 10.7 fL 6.2-12.0 [facility] Determination of erythrocyte mean corpuscular volume (MCV)Ordered By: Renard Burgos on 02-13-2023 MCV (RBC) [Entitic vol] 92.6 fL 80-94 [facility] Hematocrit Auto (Bld) [Volum e fraction]Ordered By: Renard Burgos on 02-13-2023 Hematocrit (Bld) [Volume fraction] 41.3 % 40-54 [facility] Laboratory - Hematology and Cell countsOrdered By: Renard Burgos on 02-13-2023 Erythrocyte distribution width (RBC) [Entitic vol] 42.7 fL 35.1-43.9 [facility] Erythrocyte distribution width (RBC) [Ratio] 12.6 % 11.6-14.6 [facility] Immature granulocytes/100 WBC (Bld) 0.400 % 0.0-0.9 [facility] Comment on above: IG% - Immature Granu locytes (promyelocytes, myelocytes and metamyelocytes) > 1% indicates that a LEFT SHIFT is Present. MCH (RBC) [Entitic mass] 30.5 pg 27.0-32.0 [facility] Nucleated RBC/100 WBC (Bld) [Ratio] 0 % 0-5 [facility] MCHC Auto (RBC) [Mass/Vol]Or dered By: Renard Burgos on 02-13-2023 MCHC (RBC) [Mass/Vol] 32.9 g/dL 32-36 [facility] Platelets bldOrdered By: Lyubov Burgos on 02-13-2023 Platelets (Bld) [#/Vol] 187 10*3/uL 150-450 [facility] Absolute lymphocyte countOrd ered By: Renard Burgos on 02-06-2023 Lymphocytes Auto (Unsp spec) [#/Vol] 2.28 10*3/uL 0.83-4.51 [facility] Basophil percentageOrdered B y: Renard Burgos on 02-06-2023 Basophils/100 WBC (Bld) 0.5 % 0-1 [facility] Eosinophils/100 WBC (Bld) 0.7 % 0-5 [facility] Neutrophils (Bld) [#/Vol] 5.5 10*3/uL 2.0-7.7 [facility] Neutrophils/100 WBC (Bld) 63.7 % 47-70 [facility] WBC (Bld) [#/Vol] 8.6 10*3/uL 4.4-11.0 [facility] Blood erythrocytes count (nu mber/volume)Ordered By: Renard Burgos on 02-06-2023 RBC (Bld) [#/Vol] 4.71 10*6/uL 4.6-6.2 [facility] Blood hemoglobin measurement (mass/volume)Ordered By: Renard Burgos on 02-06-2023 Hemoglobin (Bld) [Mass/Vol] 14.1 g/dL 13.0-16.5 [facility] Blood lymphocytes/100 leukoc ytesOrdered By: Renard Burgos on 02-06-2023 Lymphocytes/100 WBC (Bld) 26.4 % 19-41 [facility] Blood monocytes/100 leukocyt esOrdered By: Renard Burgos on 02-06-2023 Monocytes/100 WBC (Bld) 8.2 % 0-10 [facility] Blood platelet mean volumeOr dered By: Renard Burgos on 02-06-2023 Platelet mean volume (Bld) [Entitic vol] 11.0 fL 6.2-12.0 [facility] Determination of erythrocyte mean corpuscular volume (MCV)Ordered By: Renard Burgos on 02-06-2023 MCV (RBC) [Entitic vol] 94.5 fL 80-94 [facility] Hematocrit Auto (Bld) [Volum e fraction]Ordered By: Renard Burgos on 02-06-2023 Hematocrit (Bld) [Volume fraction] 44.5 % 40-54 [facility] Laboratory - Hematology and Cell countsOrdered By: Renard Burgos on 02-06-2023 Erythrocyte distribution width (RBC) [Entitic vol] 43.5 fL 35.1-43.9 [facility] Erythrocyte distribution width (RBC) [Ratio] 12.7 % 11.6-14.6 [facility] Immature granulocytes/100 WBC (Bld) 0.500 % 0.0-0.9 [facility] Comment on above: IG% - Immature Granu locytes (promyelocytes, myelocytes and metamyelocytes) > 1% indicates that a LEFT SHIFT is Present. MCH (RBC) [Entitic mass] 29.9 pg 27.0-32.0 [facility] Nucleated RBC/100 WBC (Bld) [Ratio] 0 % 0-5 [facility] MCHC Auto (RBC) [Mass/Vol]Or dered By: Renard Burgos on 02-06-2023 MCHC (RBC) [Mass/Vol] 31.7 g/dL 32-36 [facility] Platelets bldOrdered By: Lyubov Burgos on 02-06-2023 Platelets (Bld) [#/Vol] 196 10*3/uL 150-450 [facility] Absolute lymphocyte countOrd ered By: Renard Burgos on 01-30-2023 Lymphocytes Auto (Unsp spec) [#/Vol] 1.91 10*3/uL 0.83-4.51 [facility] Basophil percentageOrdered B y: Renard Burgos on 01-30-2023 Basophils/100 WBC (Bld) 0.5 % 0-1 [facility] Eosinophils/100 WBC (Bld) 0.5 % 0-5 [facility] Neutrophils (Bld) [#/Vol] 6.0 10*3/uL 2.0-7.7 [facility] Neutrophils/100 WBC (Bld) 69.4 % 47-70 [facility] WBC (Bld) [#/Vol] 8.7 10*3/uL 4.4-11.0 [facility] Basophil percentage 0 SEEN /hpf 0-5 [facility] Bilirubin Test strip Ql (U)O rdered By: Renard Burgos on 01-30-2023 Bilirubin Ql (U) Negative Negative [facility] Blood erythrocytes count (nu mber/volume)Ordered By: Renard Burgos on 01-30-2023 RBC (Bld) [#/Vol] 4.50 10*6/uL 4.6-6.2 [facility] Blood hemoglobin measurement (mass/volume)Ordered By: Renard Burgos on 01-30-2023 Hemoglobin (Bld) [Mass/Vol] 13.5 g/dL 13.0-16.5 [facility] Blood lymphocytes/100 leukoc ytesOrdered By: Renard Burgos on 01-30-2023 Lymphocytes/100 WBC (Bld) 22.1 % 19-41 [facility] Blood monocytes/100 leukocyt esOrdered By: Renard Burgos on 01-30-2023 Monocytes/100 WBC (Bld) 7.2 % 0-10 [facility] Blood platelet mean volumeOr dered By: Renard Burgos on 01-30-2023 Platelet mean volume (Bld) [Entitic vol] 11.1 fL 6.2-12.0 [facility] Culture, urineOrdered By: Garrick Bhatt on 01-30-2023 Bacteria identified Cx Nom (U) Positive [facility] Determination of erythrocyte mean corpuscular volume (MCV)Ordered By: Renard Burgos on 01-30-2023 MCV (RBC) [Entitic vol] 91.3 fL 80-94 [facility] Hematocrit Auto (Bld) [Volum e fraction]Ordered By: Renard Burgos on 01-30-2023 Hematocrit (Bld) [Volume fraction] 41.1 % 40-54 [facility] Ketones Test strip Ql (U)Ord ered By: Renard Burgos on 01-30-2023 Ketones Ql (U) Negative Negative [facility] Laboratory - Hematology and Cell countsOrdered By: Renard Burgos on 01-30-2023 Erythrocyte distribution width (RBC) [Entitic vol] 41.4 fL 35.1-43.9 [facility] Erythrocyte distribution width (RBC) [Ratio] 12.6 % 11.6-14.6 [facility] Immature granulocytes/100 WBC (Bld) 0.300 % 0.0-0.9 [facility] Comment on above: IG% - Immature Granu locytes (promyelocytes, myelocytes and metamyelocytes) > 1% indicates that a LEFT SHIFT is Present. MCH (RBC) [Entitic mass] 30.0 pg 27.0-32.0 [facility] Nucleated RBC/100 WBC (Bld) [Ratio] 0 % 0-5 [facility] MCHC Auto (RBC) [Mass/Vol]Or dered By: Renard Burgos on 01-30-2023 MCHC (RBC) [Mass/Vol] 32.8 g/dL 32-36 [facility] Mucus LM Ql (Urine sed)Order ed By: Renard Burgos on 01-30-2023 Mucus Ql (Urine sed) 0 SEEN /hpf [facility] Nitrite Test strip Ql (U)Ord ered By: Renard Burgos on 01-30-2023 Nitrite Ql (U) Negative Negative [facility] No Panel InformationOrdered By: Renard Burgos on 01-30-2023 Prostate Specific Antigen Screen 4.18 ng/mL 0.00-4.00 [facility] Comment on above: This test was perfor med using the TPSA assay method for the[employer] chemistry system. Values obtained with differentassay methods cannot be used interchangably.When changing PSA assays in the course of monitoring apatient, additional sequential testing should be carriedout to confirm baseline values. Platelets bldOrdered By: Lyubov Burgos on 01-30-2023 Platelets (Bld) [#/Vol] 205 10*3/uL 150-450 [facility] Protein Test strip Ql (U)Ord ered By: Renard Burgos on 01-30-2023 Protein Ql (U) Negative Negative [facility] Squamous epithelial cells de tection in urine sediment by light microscopyOrdered By: Renard Burgos on 01-30-2023 Epithelial cells.squamous LM Ql (Urine sed) 0-5 SEEN /hpf 0-5 [facility] Urine blood detectionOrdered By: Renard Burgos on 01-30-2023 RBC Ql (U) Negative Negative [facility] RBC Ql (U) 0 SEEN /hpf 0-5 [facility] Urine clarityOrdered By: Lyubov Burgos on 01-30-2023 Clarity (U) Clear Clear [facility] Urine color determinationOrd ered By: Renard Burgos on 01-30-2023 Color (U) Yellow Yellow [facility] Urine glucose detectionOrder ed By: Renard Burgos on 01-30-2023 Glucose Ql (U) Normal mg/dl Normal [facility] Urine leukocyte esterase det ection by dipstickOrdered By: Renard Burgos on 01-30-2023 Leukocyte esterase Test strip Ql (U) Negative Negative [facility] Urine pHOrdered By: Renard ocampo on 01-30-2023 pH (U) 8.0 [pH] 5.0 - 8.0 [facility] Urine sediment bacteria coun t by microscopy (number/high power field)Ordered By: Renard Burgos on 01-30-2023 Bacteria LM.HPF (Urine sed) [#/Area] 0 /[HPF] None Seen [facility] Urine specific gravity measu rementOrdered By: Renard Burgos on 01-30-2023 Specific gravity (U) [Rel density] 1.010 1.002-1.030 [facility] Urobilinogen Auto test strip Ql (U)Ordered By: Renard Burgos on 01-30-2023 Urobilinogen Ql (U) Normal mg/dl Normal [facility] Absolute lymphocyte countOrd ered By: Renard Burgos on 01-23-2023 Lymphocytes Auto (Unsp spec) [#/Vol] 2.32 10*3/uL 0.83-4.51 [facility] Basophil percentageOrdered B y: Renard Burgos on 01-23-2023 Basophils/100 WBC (Bld) 0.6 % 0-1 [facility] Eosinophils/100 WBC (Bld) 0.4 % 0-5 [facility] Neutrophils (Bld) [#/Vol] 5.3 10*3/uL 2.0-7.7 [facility] Neutrophils/100 WBC (Bld) 62.7 % 47-70 [facility] WBC (Bld) [#/Vol] 8.4 10*3/uL 4.4-11.0 [facility] Blood erythrocytes count (nu mber/volume)Ordered By: Renard Burgos on 01-23-2023 RBC (Bld) [#/Vol] 4.49 10*6/uL 4.6-6.2 [facility] Blood hemoglobin measurement (mass/volume)Ordered By: Renard Burgos on 01-23-2023 Hemoglobin (Bld) [Mass/Vol] 13.6 g/dL 13.0-16.5 [facility] Blood lymphocytes/100 leukoc ytesOrdered By: Renard Burgos on 01-23-2023 Lymphocytes/100 WBC (Bld) 27.5 % 19-41 [facility] Blood monocytes/100 leukocyt esOrdered By: Renard Burgos on 01-23-2023 Monocytes/100 WBC (Bld) 8.2 % 0-10 [facility] Blood platelet mean volumeOr dered By: Renard Burgos on 01-23-2023 Platelet mean volume (Bld) [Entitic vol] 10.9 fL 6.2-12.0 [facility] Determination of erythrocyte mean corpuscular volume (MCV)Ordered By: Renard Burgos on 01-23-2023 MCV (RBC) [Entitic vol] 93.1 fL 80-94 [facility] Hematocrit Auto (Bld) [Volum e fraction]Ordered By: Renard Burgos on 01-23-2023 Hematocrit (Bld) [Volume fraction] 41.8 % 40-54 [facility] Laboratory - Hematology and Cell countsOrdered By: Renard Burgos on 01-23-2023 Erythrocyte distribution width (RBC) [Entitic vol] 42.7 fL 35.1-43.9 [facility] Erythrocyte distribution width (RBC) [Ratio] 12.6 % 11.6-14.6 [facility] Immature granulocytes/100 WBC (Bld) 0.600 % 0.0-0.9 [facility] Comment on above: IG% - Immature Granu locytes (promyelocytes, myelocytes and metamyelocytes) > 1% indicates that a LEFT SHIFT is Present. MCH (RBC) [Entitic mass] 30.3 pg 27.0-32.0 [facility] Nucleated RBC/100 WBC (Bld) [Ratio] 0 % 0-5 [facility] MCHC Auto (RBC) [Mass/Vol]Or dered By: Renard Burgos on 01-23-2023 MCHC (RBC) [Mass/Vol] 32.5 g/dL 32-36 [facility] Platelets bldOrdered By: Lyubov medel Loretta on 01-23-2023 Platelets (Bld) [#/Vol] 220 10*3/uL 150-450 [facility] Absolute lymphocyte countOrd ered By: Renard Burgos on 01-16-2023 Lymphocytes Auto (Unsp spec) [#/Vol] 1.80 10*3/uL 0.83-4.51 [facility] Basophil percentageOrdered B y: Renard Burgos on 01-16-2023 Basophils/100 WBC (Bld) 0.4 % 0-1 [facility] Eosinophils/100 WBC (Bld) 0.4 % 0-5 [facility] Neutrophils (Bld) [#/Vol] 7.2 10*3/uL 2.0-7.7 [facility] Neutrophils/100 WBC (Bld) 73.5 % 47-70 [facility] WBC (Bld) [#/Vol] 9.8 10*3/uL 4.4-11.0 [facility] Blood erythrocytes count (nu mber/volume)Ordered By: Renard Burgos on 01-16-2023 RBC (Bld) [#/Vol] 4.77 10*6/uL 4.6-6.2 [facility] Blood hemoglobin measurement (mass/volume)Ordered By: Renard Burgos on 01-16-2023 Hemoglobin (Bld) [Mass/Vol] 14.1 g/dL 13.0-16.5 [facility] Blood lymphocytes/100 leukoc ytesOrdered By: Renard Burgos on 01-16-2023 Lymphocytes/100 WBC (Bld) 18.4 % 19-41 [facility] Blood monocytes/100 leukocyt esOrdered By: Renard Burgos on 01-16-2023 Monocytes/100 WBC (Bld) 6.9 % 0-10 [facility] Blood platelet mean volumeOr dered By: Renard Burgos on 01-16-2023 Platelet mean volume (Bld) [Entitic vol] 10.6 fL 6.2-12.0 [facility] Determination of erythrocyte mean corpuscular volume (MCV)Ordered By: Renard Burgos on 01-16-2023 MCV (RBC) [Entitic vol] 92.5 fL 80-94 [facility] Hematocrit Auto (Bld) [Volum e fraction]Ordered By: Renard Burgos on 01-16-2023 Hematocrit (Bld) [Volume fraction] 44.1 % 40-54 [facility] Laboratory - Hematology and Cell countsOrdered By: Renard Burgos on 01-16-2023 Erythrocyte distribution width (RBC) [Entitic vol] 41.8 fL 35.1-43.9 [facility] Erythrocyte distribution width (RBC) [Ratio] 12.4 % 11.6-14.6 [facility] Immature granulocytes/100 WBC (Bld) 0.400 % 0.0-0.9 [facility] Comment on above: IG% - Immature Granu locytes (promyelocytes, myelocytes and metamyelocytes) > 1% indicates that a LEFT SHIFT is Present. MCH (RBC) [Entitic mass] 29.6 pg 27.0-32.0 [facility] Nucleated RBC/100 WBC (Bld) [Ratio] 0 % 0-5 [facility] MCHC Auto (RBC) [Mass/Vol]Or dered By: Renard Burgos on 01-16-2023 MCHC (RBC) [Mass/Vol] 32.0 g/dL 32-36 [facility] Platelets bldOrdered By: Lyubov Burgos on 01-16-2023 Platelets (Bld) [#/Vol] 221 10*3/uL 150-450 [facility] Absolute lymphocyte countOrd ered By: Renard Burgos on 01-09-2023 Lymphocytes Auto (Unsp spec) [#/Vol] 2.41 10*3/uL 0.83-4.51 [facility] Basophil percentageOrdered B y: Renard Burgos on 01-09-2023 Basophils/100 WBC (Bld) 0.7 % 0-1 [facility] Eosinophils/100 WBC (Bld) 0.8 % 0-5 [facility] Neutrophils (Bld) [#/Vol] 5.4 10*3/uL 2.0-7.7 [facility] Neutrophils/100 WBC (Bld) 60.5 % 47-70 [facility] WBC (Bld) [#/Vol] 8.9 10*3/uL 4.4-11.0 [facility] Blood erythrocytes count (nu mber/volume)Ordered By: Renard Burgos on 01-09-2023 RBC (Bld) [#/Vol] 4.56 10*6/uL 4.6-6.2 [facility] Blood hemoglobin measurement (mass/volume)Ordered By: Renard Burgos on 01-09-2023 Hemoglobin (Bld) [Mass/Vol] 13.8 g/dL 13.0-16.5 [facility] Blood lymphocytes/100 leukoc ytesOrdered By: Renard Burgos on 01-09-2023 Lymphocytes/100 WBC (Bld) 27.0 % 19-41 [facility] Blood monocytes/100 leukocyt esOrdered By: Renard Burgos on 01-09-2023 Monocytes/100 WBC (Bld) 10.7 % 0-10 [facility] Blood platelet mean volumeOr dered By: Renard Burgos on 01-09-2023 Platelet mean volume (Bld) [Entitic vol] 10.8 fL 6.2-12.0 [facility] Determination of erythrocyte mean corpuscular volume (MCV)Ordered By: Renard Burgos on 01-09-2023 MCV (RBC) [Entitic vol] 92.5 fL 80-94 [facility] Hematocrit Auto (Bld) [Volum e fraction]Ordered By: Renard Bugros on 01-09-2023 Hematocrit (Bld) [Volume fraction] 42.2 % 40-54 [facility] Laboratory - Hematology and Cell countsOrdered By: Renard Burgos on 01-09-2023 Erythrocyte distribution width (RBC) [Entitic vol] 42.7 fL 35.1-43.9 [facility] Erythrocyte distribution width (RBC) [Ratio] 12.5 % 11.6-14.6 [facility] Immature granulocytes/100 WBC (Bld) 0.300 % 0.0-0.9 [facility] Comment on above: IG% - Immature Granu locytes (promyelocytes, myelocytes and metamyelocytes) > 1% indicates that a LEFT SHIFT is Present. MCH (RBC) [Entitic mass] 30.3 pg 27.0-32.0 [facility] Nucleated RBC/100 WBC (Bld) [Ratio] 0 % 0-5 [facility] MCHC Auto (RBC) [Mass/Vol]Or dered By: Renard Burgos on 01-09-2023 MCHC (RBC) [Mass/Vol] 32.7 g/dL 32-36 [facility] Platelets bldOrdered By: Lyubov Burgos on 01-09-2023 Platelets (Bld) [#/Vol] 209 10*3/uL 150-450 [facility] Absolute lymphocyte countOrd ered By: Renard Burgos on 01-03-2023 Lymphocytes Auto (Unsp spec) [#/Vol] 2.18 10*3/uL 0.83-4.51 [facility] Basophil percentageOrdered B y: Renard Burgos on 01-03-2023 Basophils/100 WBC (Bld) 0.6 % 0-1 [facility] Eosinophils/100 WBC (Bld) 0.5 % 0-5 [facility] Neutrophils (Bld) [#/Vol] 5.4 10*3/uL 2.0-7.7 [facility] Neutrophils/100 WBC (Bld) 64.2 % 47-70 [facility] WBC (Bld) [#/Vol] 8.4 10*3/uL 4.4-11.0 [facility] Blood erythrocytes count (nu mber/volume)Ordered By: Renard Burgos on 01-03-2023 RBC (Bld) [#/Vol] 4.59 10*6/uL 4.6-6.2 [facility] Blood hemoglobin measurement (mass/volume)Ordered By: Renard Burgos on 01-03-2023 Hemoglobin (Bld) [Mass/Vol] 13.9 g/dL 13.0-16.5 [facility] Blood lymphocytes/100 leukoc ytesOrdered By: Renard Burgos on 01-03-2023 Lymphocytes/100 WBC (Bld) 25.9 % 19-41 [facility] Blood monocytes/100 leukocyt esOrdered By: Renard Burgos on 01-03-2023 Monocytes/100 WBC (Bld) 8.3 % 0-10 [facility] Blood platelet mean volumeOr dered By: Renard Burgos on 01-03-2023 Platelet mean volume (Bld) [Entitic vol] 11.0 fL 6.2-12.0 [facility] Determination of erythrocyte mean corpuscular volume (MCV)Ordered By: Renard Burgos on 01-03-2023 MCV (RBC) [Entitic vol] 92.8 fL 80-94 [facility] Hematocrit Auto (Bld) [Volum e fraction]Ordered By: Renard Burgos on 01-03-2023 Hematocrit (Bld) [Volume fraction] 42.6 % 40-54 [facility] Laboratory - Hematology and Cell countsOrdered By: Renard Burgos on 01-03-2023 Erythrocyte distribution width (RBC) [Entitic vol] 42.5 fL 35.1-43.9 [facility] Erythrocyte distribution width (RBC) [Ratio] 12.6 % 11.6-14.6 [facility] Immature granulocytes/100 WBC (Bld) 0.500 % 0.0-0.9 [facility] Comment on above: IG% - Immature Granu locytes (promyelocytes, myelocytes and metamyelocytes) > 1% indicates that a LEFT SHIFT is Present. MCH (RBC) [Entitic mass] 30.3 pg 27.0-32.0 [facility] Nucleated RBC/100 WBC (Bld) [Ratio] 0 % 0-5 [facility] MCHC Auto (RBC) [Mass/Vol]Or dered By: Renard Burgos on 01-03-2023 MCHC (RBC) [Mass/Vol] 32.6 g/dL 32-36 [facility] No Panel InformationOrdered By: Renard Burgos on 01-03-2023 Prostate Specific Antigen Screen 3.37 ng/mL 0.00-4.00 [facility] Comment on above: This test was perfor med using the TPSA assay method for the[facility]. Values obtained with differentassay methods cannot be used interchangably.When changing PSA assays in the course of monitoring apatient, additional sequential testing should be carriedout to confirm baseline values. Platelets bldOrdered By: Lyubov Burgos on 01-03-2023 Platelets (Bld) [#/Vol] 200 10*3/uL 150-450 [facility] Absolute lymphocyte countOrd ered By: Renard Burgos on 12-26-2022 Lymphocytes Auto (Unsp spec) [#/Vol] 1.80 10*3/uL 0.83-4.51 [facility] Basophil percentageOrdered B y: Renard Burgos on 12-26-2022 Basophils/100 WBC (Bld) 0.4 % 0-1 [facility] Eosinophils/100 WBC (Bld) 0.6 % 0-5 [facility] Neutrophils (Bld) [#/Vol] 6.2 10*3/uL 2.0-7.7 [facility] Neutrophils/100 WBC (Bld) 69.8 % 47-70 [facility] WBC (Bld) [#/Vol] 8.9 10*3/uL 4.4-11.0 [facility] Blood erythrocytes count (nu mber/volume)Ordered By: Renard Burgos on 12-26-2022 RBC (Bld) [#/Vol] 4.58 10*6/uL 4.6-6.2 [facility] Blood hemoglobin measurement (mass/volume)Ordered By: Renard Burgos on 12-26-2022 Hemoglobin (Bld) [Mass/Vol] 14.0 g/dL 13.0-16.5 [facility] Blood lymphocytes/100 leukoc ytesOrdered By: Renard Burgos on 12-26-2022 Lymphocytes/100 WBC (Bld) 20.2 % 19-41 [facility] Blood monocytes/100 leukocyt esOrdered By: Renard Burgos on 12-26-2022 Monocytes/100 WBC (Bld) 8.6 % 0-10 [facility] Blood platelet mean volumeOr dered By: Renard Burgos on 12-26-2022 Platelet mean volume (Bld) [Entitic vol] 10.8 fL 6.2-12.0 [facility] Determination of erythrocyte mean corpuscular volume (MCV)Ordered By: Renard Burgos on 12-26-2022 MCV (RBC) [Entitic vol] 93.2 fL 80-94 [facility] Hematocrit Auto (Bld) [Volum e fraction]Ordered By: Renard Burgos on 12-26-2022 Hematocrit (Bld) [Volume fraction] 42.7 % 40-54 [facility] Laboratory - Hematology and Cell countsOrdered By: Renard Burgos on 12-26-2022 Erythrocyte distribution width (RBC) [Entitic vol] 42.5 fL 35.1-43.9 [facility] Erythrocyte distribution width (RBC) [Ratio] 12.5 % 11.6-14.6 [facility] Immature granulocytes/100 WBC (Bld) 0.400 % 0.0-0.9 [facility] Comment on above: IG% - Immature Granu locytes (promyelocytes, myelocytes and metamyelocytes) > 1% indicates that a LEFT SHIFT is Present. MCH (RBC) [Entitic mass] 30.6 pg 27.0-32.0 [facility] Nucleated RBC/100 WBC (Bld) [Ratio] 0 % 0-5 [facility] MCHC Auto (RBC) [Mass/Vol]Or dered By: Renard Burgos on 12-26-2022 MCHC (RBC) [Mass/Vol] 32.8 g/dL 32-36 [facility] Platelets bldOrdered By: Lyubov Burgos on 12-26-2022 Platelets (Bld) [#/Vol] 200 10*3/uL 150-450 [facility] Absolute lymphocyte countOrd ered By: Renard Burgos on 12-19-2022 Lymphocytes Auto (Unsp spec) [#/Vol] 2.24 10*3/uL 0.83-4.51 [facility] Basophil percentageOrdered B y: Renard Burgos on 12-19-2022 Basophils/100 WBC (Bld) 0.3 % 0-1 [facility] Eosinophils/100 WBC (Bld) 0.8 % 0-5 [facility] Neutrophils (Bld) [#/Vol] 5.7 10*3/uL 2.0-7.7 [facility] Neutrophils/100 WBC (Bld) 64.1 % 47-70 [facility] WBC (Bld) [#/Vol] 8.9 10*3/uL 4.4-11.0 [facility] Blood erythrocytes count (nu mber/volume)Ordered By: Renard Burgos on 12-19-2022 RBC (Bld) [#/Vol] 4.44 10*6/uL 4.6-6.2 [facility] Blood hemoglobin measurement (mass/volume)Ordered By: Renard Burgos on 12-19-2022 Hemoglobin (Bld) [Mass/Vol] 13.5 g/dL 13.0-16.5 [facility] Blood lymphocytes/100 leukoc ytesOrdered By: Renard Burgos on 12-19-2022 Lymphocytes/100 WBC (Bld) 25.1 % 19-41 [facility] Blood monocytes/100 leukocyt esOrdered By: Renard Burgos on 12-19-2022 Monocytes/100 WBC (Bld) 9.4 % 0-10 [facility] Blood platelet mean volumeOr dered By: Renard Burgos on 12-19-2022 Platelet mean volume (Bld) [Entitic vol] 11.0 fL 6.2-12.0 [facility] Determination of erythrocyte mean corpuscular volume (MCV)Ordered By: Renard Burgos on 12-19-2022 MCV (RBC) [Entitic vol] 92.8 fL 80-94 [facility] Hematocrit Auto (Bld) [Volum e fraction]Ordered By: Renard Burgos on 12-19-2022 Hematocrit (Bld) [Volume fraction] 41.2 % 40-54 [facility] Laboratory - Hematology and Cell countsOrdered By: Renard Burgos on 12-19-2022 Erythrocyte distribution width (RBC) [Entitic vol] 43.2 fL 35.1-43.9 [facility] Erythrocyte distribution width (RBC) [Ratio] 12.7 % 11.6-14.6 [facility] Immature granulocytes/100 WBC (Bld) 0.300 % 0.0-0.9 [facility] Comment on above: IG% - Immature Granu locytes (promyelocytes, myelocytes and metamyelocytes) > 1% indicates that a LEFT SHIFT is Present. MCH (RBC) [Entitic mass] 30.4 pg 27.0-32.0 [facility] Nucleated RBC/100 WBC (Bld) [Ratio] 0 % 0-5 [facility] MCHC Auto (RBC) [Mass/Vol]Or dered By: Renard Burgos on 12-19-2022 MCHC (RBC) [Mass/Vol] 32.8 g/dL 32-36 [facility] Platelets bldOrdered By: Lyubov lizy Loretta on 12-19-2022 Platelets (Bld) [#/Vol] 194 10*3/uL 150-450 [facility] Absolute lymphocyte countOrd ered By: Renard Burgos on 12-12-2022 Lymphocytes Auto (Unsp spec) [#/Vol] 2.33 10*3/uL 0.83-4.51 [facility] Basophil percentageOrdered B y: Renard Burgos on 12-12-2022 Basophils/100 WBC (Bld) 0.6 % 0-1 [facility] Eosinophils/100 WBC (Bld) 0.9 % 0-5 [facility] Neutrophils (Bld) [#/Vol] 5.8 10*3/uL 2.0-7.7 [facility] Neutrophils/100 WBC (Bld) 63.5 % 47-70 [facility] WBC (Bld) [#/Vol] 9.1 10*3/uL 4.4-11.0 [facility] Blood erythrocytes count (nu mber/volume)Ordered By: Renard Burgos on 12-12-2022 RBC (Bld) [#/Vol] 4.52 10*6/uL 4.6-6.2 [facility] Blood hemoglobin measurement (mass/volume)Ordered By: Renard Burgos on 12-12-2022 Hemoglobin (Bld) [Mass/Vol] 13.9 g/dL 13.0-16.5 [facility] Blood lymphocytes/100 leukoc ytesOrdered By: Renard Burgos on 12-12-2022 Lymphocytes/100 WBC (Bld) 25.6 % 19-41 [facility] Blood monocytes/100 leukocyt esOrdered By: Renard Burgos on 12-12-2022 Monocytes/100 WBC (Bld) 9.1 % 0-10 [facility] Blood platelet mean volumeOr dered By: Renard Burgos on 12-12-2022 Platelet mean volume (Bld) [Entitic vol] 10.9 fL 6.2-12.0 [facility] Determination of erythrocyte mean corpuscular volume (MCV)Ordered By: Renard Burgos on 12-12-2022 MCV (RBC) [Entitic vol] 94.2 fL 80-94 [facility] Hematocrit Auto (Bld) [Volum e fraction]Ordered By: Renard Burgos on 12-12-2022 Hematocrit (Bld) [Volume fraction] 42.6 % 40-54 [facility] Laboratory - Hematology and Cell countsOrdered By: Renard Burgos on 12-12-2022 Erythrocyte distribution width (RBC) [Entitic vol] 44.3 fL 35.1-43.9 [facility] Erythrocyte distribution width (RBC) [Ratio] 12.8 % 11.6-14.6 [facility] Immature granulocytes/100 WBC (Bld) 0.300 % 0.0-0.9 [facility] Comment on above: IG% - Immature Granu locytes (promyelocytes, myelocytes and metamyelocytes) > 1% indicates that a LEFT SHIFT is Present. MCH (RBC) [Entitic mass] 30.8 pg 27.0-32.0 [facility] Nucleated RBC/100 WBC (Bld) [Ratio] 0 % 0-5 [facility] MCHC Auto (RBC) [Mass/Vol]Or dered By: Renard Burgos on 12-12-2022 MCHC (RBC) [Mass/Vol] 32.6 g/dL 32-36 [facility] Platelets bldOrdered By: Lyubov Burgos on 12-12-2022 Platelets (Bld) [#/Vol] 211 10*3/uL 150-450 [facility] Absolute lymphocyte countOrd ered By: Renard Burgos on 12-05-2022 Lymphocytes Auto (Unsp spec) [#/Vol] 1.94 10*3/uL 0.83-4.51 [facility] Basophil percentageOrdered B y: Renard Burgos on 12-05-2022 Basophils/100 WBC (Bld) 0.4 % 0-1 [facility] Eosinophils/100 WBC (Bld) 0.9 % 0-5 [facility] Neutrophils (Bld) [#/Vol] 4.1 10*3/uL 2.0-7.7 [facility] Neutrophils/100 WBC (Bld) 61.2 % 47-70 [facility] WBC (Bld) [#/Vol] 6.7 10*3/uL 4.4-11.0 [facility] Blood erythrocytes count (nu mber/volume)Ordered By: Renard Burgos on 12-05-2022 RBC (Bld) [#/Vol] 4.39 10*6/uL 4.6-6.2 [facility] Blood hemoglobin measurement (mass/volume)Ordered By: Renard Burgos on 12-05-2022 Hemoglobin (Bld) [Mass/Vol] 13.3 g/dL 13.0-16.5 [facility] Blood lymphocytes/100 leukoc ytesOrdered By: Renard Burgos on 12-05-2022 Lymphocytes/100 WBC (Bld) 28.8 % 19-41 [facility] Blood monocytes/100 leukocyt esOrdered By: Renard Burgos on 12-05-2022 Monocytes/100 WBC (Bld) 8.3 % 0-10 [facility] Blood platelet mean volumeOr dered By: Renard Burgos on 12-05-2022 Platelet mean volume (Bld) [Entitic vol] 10.8 fL 6.2-12.0 [facility] Determination of erythrocyte mean corpuscular volume (MCV)Ordered By: Renard Burgos on 12-05-2022 MCV (RBC) [Entitic vol] 90.7 fL 80-94 [facility] Hematocrit Auto (Bld) [Volum e fraction]Ordered By: Renard Burgos on 12-05-2022 Hematocrit (Bld) [Volume fraction] 39.8 % 40-54 [facility] Laboratory - Hematology and Cell countsOrdered By: Renard Burgos on 12-05-2022 Erythrocyte distribution width (RBC) [Entitic vol] 41.8 fL 35.1-43.9 [facility] Erythrocyte distribution width (RBC) [Ratio] 12.6 % 11.6-14.6 [facility] Immature granulocytes/100 WBC (Bld) 0.400 % 0.0-0.9 [facility] Comment on above: IG% - Immature Granu locytes (promyelocytes, myelocytes and metamyelocytes) > 1% indicates that a LEFT SHIFT is Present. MCH (RBC) [Entitic mass] 30.3 pg 27.0-32.0 [facility] Nucleated RBC/100 WBC (Bld) [Ratio] 0 % 0-5 [facility] MCHC Auto (RBC) [Mass/Vol]Or dered By: Renard Burgos on 12-05-2022 MCHC (RBC) [Mass/Vol] 33.4 g/dL 32-36 [facility] Platelets bldOrdered By: Lyubov Burgos on 12-05-2022 Platelets (Bld) [#/Vol] 208 10*3/uL 150-450 [facility] Absolute lymphocyte countOrd ered By: Renard Burgos on 11-28-2022 Lymphocytes Auto (Unsp spec) [#/Vol] 2.07 10*3/uL 0.83-4.51 [facility] Basophil percentageOrdered B y: Renard Burgos on 11-28-2022 Basophils/100 WBC (Bld) 0.4 % 0-1 [facility] Eosinophils/100 WBC (Bld) 0.6 % 0-5 [facility] Neutrophils (Bld) [#/Vol] 5.1 10*3/uL 2.0-7.7 [facility] Neutrophils/100 WBC (Bld) 64.6 % 47-70 [facility] WBC (Bld) [#/Vol] 7.9 10*3/uL 4.4-11.0 [facility] Blood erythrocytes count (nu mber/volume)Ordered By: Renard Burgos on 11-28-2022 RBC (Bld) [#/Vol] 4.54 10*6/uL 4.6-6.2 [facility] Blood hemoglobin measurement (mass/volume)Ordered By: Renard Burgos on 11-28-2022 Hemoglobin (Bld) [Mass/Vol] 13.7 g/dL 13.0-16.5 [facility] Blood lymphocytes/100 leukoc ytesOrdered By: Renard Burgos on 11-28-2022 Lymphocytes/100 WBC (Bld) 26.2 % 19-41 [facility] Blood monocytes/100 leukocyt esOrdered By: Renard Burgos on 11-28-2022 Monocytes/100 WBC (Bld) 7.7 % 0-10 [facility] Blood platelet mean volumeOr dered By: Renard Burgos on 11-28-2022 Platelet mean volume (Bld) [Entitic vol] 10.6 fL 6.2-12.0 [facility] Determination of erythrocyte mean corpuscular volume (MCV)Ordered By: Renard Burgos on 11-28-2022 MCV (RBC) [Entitic vol] 93.6 fL 80-94 [facility] Hematocrit Auto (Bld) [Volum e fraction]Ordered By: Renard Burgos on 11-28-2022 Hematocrit (Bld) [Volume fraction] 42.5 % 40-54 [facility] - Hematology and Cell countsOrdered By: Renard Burgos on 11-28-2022 Erythrocyte distribution width (RBC) [Entitic vol] 43.5 fL 35.1-43.9 [facility] Erythrocyte distribution width (RBC) [Ratio] 12.7 % 11.6-14.6 [facility] Immature granulocytes/100 WBC (Bld) 0.500 % 0.0-0.9 [facility] Comment on above: IG% - Immature Granu locytes (promyelocytes, myelocytes and metamyelocytes) > 1% indicates that a LEFT SHIFT is Present. MCH (RBC) [Entitic mass] 30.2 pg 27.0-32.0 [facility] Nucleated RBC/100 WBC (Bld) [Ratio] 0 % 0-5 [facility] MCHC Auto (RBC) [Mass/Vol]Or dered By: Renard Burgos on 11-28-2022 MCHC (RBC) [Mass/Vol] 32.2 g/dL 32-36 [facility] Platelets bldOrdered By: Lyubov Burgos on 11-28-2022 Platelets (Bld) [#/Vol] 201 10*3/uL 150-450 [facility] Absolute lymphocyte countOrd ered By: Renard Burgos on 11-21-2022 Lymphocytes Auto (Unsp spec) [#/Vol] 2.32 10*3/uL 0.83-4.51 [facility] Basophil percentageOrdered B y: Renard Burgos on 11-21-2022 Basophils/100 WBC (Bld) 0.6 % 0-1 [facility] [facility] Eosinophils/100 WBC (Bld) 0.7 % 0-5 [facility] Neutrophils (Bld) [#/Vol] 5.0 10*3/uL 2.0-7.7 [facility] Neutrophils/100 WBC (Bld) 60.6 % 47-70 [facility] WBC (Bld) [#/Vol] 8.2 10*3/uL 4.4-11.0 [facility] Blood erythrocytes count (nu mber/volume)Ordered By: Renard Burgos on 11-21-2022 RBC (Bld) [#/Vol] 4.71 10*6/uL 4.6-6.2 [facility] Blood hemoglobin measurement (mass/volume)Ordered By: Renard Burgos on 11-21-2022 Hemoglobin (Bld) [Mass/Vol] 14.3 g/dL 13.0-16.5 [facility] Blood lymphocytes/100 leukoc ytesOrdered By: Renard Burgos on 11-21-2022 Lymphocytes/100 WBC (Bld) 28.2 % 19-41 [facility] Blood monocytes/100 leukocyt esOrdered By: Renard Burgos on 11-21-2022 Monocytes/100 WBC (Bld) 9.2 % 0-10 [facility] Blood platelet mean volumeOr dered By: Renard Burgos on 11-21-2022 Platelet mean volume (Bld) [Entitic vol] 10.4 fL 6.2-12.0 [facility] Determination of erythrocyte mean corpuscular volume (MCV)Ordered By: Renard Burgos on 11-21-2022 MCV (RBC) [Entitic vol] 91.9 fL 80-94 [facility] Hematocrit Auto (Bld) [Volum e fraction]Ordered By: Renard Burgos on 11-21-2022 Hematocrit (Bld) [Volume fraction] 43.3 % 40-54 [facility] Laboratory - Hematology and Cell countsOrdered By: Renard Burgos on 11-21-2022 Erythrocyte distribution width (RBC) [Entitic vol] 43.1 fL 35.1-43.9 [facility] Erythrocyte distribution width (RBC) [Ratio] 12.8 % 11.6-14.6 [facility] Immature granulocytes/100 WBC (Bld) 0.700 % 0.0-0.9 [facility] Comment on above: IG% - Immature Granu locytes (promyelocytes, myelocytes and metamyelocytes) > 1% indicates that a LEFT SHIFT is Present. MCH (RBC) [Entitic mass] 30.4 pg 27.0-32.0 [facility] Nucleated RBC/100 WBC (Bld) [Ratio] 0 % 0-5 [facility] MCHC Auto (RBC) [Mass/Vol]Or dered By: Renard Burgos on 11-21-2022 MCHC (RBC) [Mass/Vol] 33.0 g/dL 32-36 [facility] Platelets bldOrdered By: Lyubov Burgos on 11-21-2022 Platelets (Bld) [#/Vol] 219 10*3/uL 150-450 [facility] Absolute lymphocyte countOrd ered By: Renard Burgos on 11-14-2022 Lymphocytes Auto (Unsp spec) [#/Vol] 1.82 10*3/uL 0.83-4.51 [facility] Basophil percentageOrdered B y: Renard Burgos on 11-14-2022 Basophils/100 WBC (Bld) 0.4 % 0-1 [facility] Chloride [Moles/Vol] 107 mmol/L 98-107 [facility] Eosinophils/100 WBC (Bld) 0.4 % 0-5 [facility] Glucose [Mass/Vol] 121 mg/dL 74-106 [facility] Comment on above: Fasting Glucose resu lt from 100 to 125 mg/dL suggests IMPAIRED HOMEOSTASIS per A.D.A. criteria. Neutrophils (Bld) [#/Vol] 4.7 10*3/uL 2.0-7.7 [facility] Neutrophils/100 WBC (Bld) 66.6 % 47-70 [facility] Potassium [Moles/Vol] 3.7 mmol/L 3.5-5.1 [facility] Sodium [Moles/Vol] 141 mmol/L 136-145 [facility] WBC (Bld) [#/Vol] 7.1 10*3/uL 4.4-11.0 [facility] Blood erythrocytes count (nu mber/volume)Ordered By: Renard Burgos on 11-14-2022 RBC (Bld) [#/Vol] 4.35 10*6/uL 4.6-6.2 [facility] Blood hemoglobin measurement (mass/volume)Ordered By: Renard Burgos on 11-14-2022 Hemoglobin (Bld) [Mass/Vol] 13.6 g/dL 13.0-16.5 [facility] Blood lymphocytes/100 leukoc ytesOrdered By: Renard Burgos on 11-14-2022 Lymphocytes/100 WBC (Bld) 25.6 % 19-41 [facility] Blood monocytes/100 leukocyt esOrdered By: Renard Burgos on 11-14-2022 Monocytes/100 WBC (Bld) 6.6 % 0-10 [facility] Blood platelet mean volumeOr dered By: Renard Burgos on 11-14-2022 Platelet mean volume (Bld) [Entitic vol] 10.9 fL 6.2-12.0 [facility] Determination of erythrocyte mean corpuscular volume (MCV)Ordered By: Renard Burgos on 11-14-2022 MCV (RBC) [Entitic vol] 93.3 fL 80-94 [facility] Hematocrit Auto (Bld) [Volum e fraction]Ordered By: Renard Burgos on 11-14-2022 Hematocrit (Bld) [Volume fraction] 40.6 % 40-54 [facility] Laboratory - Chemistry and C hemistry - challengeOrdered By: Renard Burgos on 11-14-2022 CO2 [Moles/Vol] 31.0 mmol/L 21.0-32.0 [facility] Urea nitrogen/Creatinine [Mass ratio] 26.0 mg/mg 10-20 [facility] Laboratory - Hematology and Cell countsOrdered By: Renard Burgos on 11-14-2022 Erythrocyte distribution width (RBC) [Entitic vol] 43.9 fL 35.1-43.9 [facility] Erythrocyte distribution width (RBC) [Ratio] 12.8 % 11.6-14.6 [facility] Immature granulocytes/100 WBC (Bld) 0.400 % 0.0-0.9 [facility] Comment on above: IG% - Immature Granu locytes (promyelocytes, myelocytes and metamyelocytes) > 1% indicates that a LEFT SHIFT is Present. MCH (RBC) [Entitic mass] 31.3 pg 27.0-32.0 [facility] Nucleated RBC/100 WBC (Bld) [Ratio] 0 % 0-5 [facility] MCHC Auto (RBC) [Mass/Vol]Or dered By: Renard Burgos on 11-14-2022 MCHC (RBC) [Mass/Vol] 33.5 g/dL 32-36 [facility] No Panel InformationOrdered By: Renard Burgos on 11-14-2022 Estimated GFR (MDRD) Amer 147 mL/min >60 [facility] Comment on above: GFR Calc Estimated GFR (MDRD) Non-Af Amer 122 mL/min >60 [facility] Comment on above: Non- GFR Calc Platelets bldOrdered By: Lyubov Burgos on 11-14-2022 Platelets (Bld) [#/Vol] 202 10*3/uL 150-450 [facility] Serum or plasma calcium gordy urement (mass/volume)Ordered By: Renard Burgos on 11-14-2022 Calcium [Mass/Vol] 8.2 mg/dL 8.5-10.1 [facility] Serum or plasma creatinine m easurement (mass/volume)Ordered By: Renard Burgos on 11-14-2022 Creatinine [Mass/Vol] 0.69 mg/dL 0.70-1.30 [facility] Comment on above: The validity of the calculated GFR & GFRAA in patients over 70 years has not been determined. Clinical correlation is essential. Serum or plasma urea nitroge n measurement (mass/volume)Ordered By: Renard Burgos on 11-14-2022 Urea nitrogen [Mass/Vol] 18 mg/dL 7-18 [facility] Thin prep Papanicolaou smear with manual screeningOrdered By: Renard Burgos on 11-14-2022 Thin prep Papanicolaou smear with manual screening 3 5-15 [facility] Absolute lymphocyte countOrd ered By: Renard Burgos on 11-07-2022 Lymphocytes Auto (Unsp spec) [#/Vol] 1.99 10*3/uL 0.83-4.51 [facility] Basophil percentageOrdered B y: Renard Burgos on 11-07-2022 Basophils/100 WBC (Bld) 0.8 % 0-1 [facility] Eosinophils/100 WBC (Bld) 0.5 % 0-5 [facility] Neutrophils (Bld) [#/Vol] 5.1 10*3/uL 2.0-7.7 [facility] Neutrophils/100 WBC (Bld) 64.0 % 47-70 [facility] WBC (Bld) [#/Vol] 8.0 10*3/uL 4.4-11.0 [facility] Blood erythrocytes count (nu mber/volume)Ordered By: Renard Burgos on 11-07-2022 RBC (Bld) [#/Vol] 4.45 10*6/uL 4.6-6.2 [facility] Blood hemoglobin measurement (mass/volume)Ordered By: Renard Burgos on 11-07-2022 Hemoglobin (Bld) [Mass/Vol] 13.7 g/dL 13.0-16.5 [facility] Blood lymphocytes/100 leukoc ytesOrdered By: Renard Burgos on 11-07-2022 Lymphocytes/100 WBC (Bld) 25.0 % 19-41 [facility] Blood monocytes/100 leukocyt esOrdered By: Renard Burgos on 11-07-2022 Monocytes/100 WBC (Bld) 9.4 % 0-10 [facility] Blood platelet mean volumeOr dered By: Renard Burgos on 11-07-2022 Platelet mean volume (Bld) [Entitic vol] 10.7 fL 6.2-12.0 [facility] Determination of erythrocyte mean corpuscular volume (MCV)Ordered By: Renard Burgos on 11-07-2022 MCV (RBC) [Entitic vol] 91.5 fL 80-94 [facility] Hematocrit Auto (Bld) [Volum e fraction]Ordered By: Renard Burgos on 11-07-2022 Hematocrit (Bld) [Volume fraction] 40.7 % 40-54 [facility] Laboratory - Hematology and Cell countsOrdered By: Renard Burgos on 11-07-2022 Erythrocyte distribution width (RBC) [Entitic vol] 42.4 fL 35.1-43.9 [facility] Erythrocyte distribution width (RBC) [Ratio] 12.8 % 11.6-14.6 [facility] Immature granulocytes/100 WBC (Bld) 0.300 % 0.0-0.9 [facility] Comment on above: IG% - Immature Granu locytes (promyelocytes, myelocytes and metamyelocytes) > 1% indicates that a LEFT SHIFT is Present. MCH (RBC) [Entitic mass] 30.8 pg 27.0-32.0 [facility] Nucleated RBC/100 WBC (Bld) [Ratio] 0 % 0-5 [facility] MCHC Auto (RBC) [Mass/Vol]Or dered By: Renard Burgos on 11-07-2022 MCHC (RBC) [Mass/Vol] 33.7 g/dL 32-36 [facility] Platelets bldOrdered By: Lyubov Burgos on 11-07-2022 Platelets (Bld) [#/Vol] 220 10*3/uL 150-450 [facility] Absolute lymphocyte countOrd ered By: Renard Burgos on 10-31-2022 Lymphocytes Auto (Unsp spec) [#/Vol] 1.97 10*3/uL 0.83-4.51 [facility] Basophil percentageOrdered B y: Renard Burgos on 10-31-2022 Basophils/100 WBC (Bld) 0.5 % 0-1 [facility] Eosinophils/100 WBC (Bld) 0.6 % 0-5 [facility] Neutrophils (Bld) [#/Vol] 6.7 10*3/uL 2.0-7.7 [facility] Neutrophils/100 WBC (Bld) 69.9 % 47-70 [facility] WBC (Bld) [#/Vol] 9.6 10*3/uL 4.4-11.0 [facility] Blood erythrocytes count (nu mber/volume)Ordered By: Renard Burgos on 10-31-2022 RBC (Bld) [#/Vol] 4.47 10*6/uL 4.6-6.2 [facility] Blood hemoglobin measurement (mass/volume)Ordered By: Renard Burgos on 10-31-2022 Hemoglobin (Bld) [Mass/Vol] 13.5 g/dL 13.0-16.5 [facility] Blood lymphocytes/100 leukoc ytesOrdered By: Renard Burgos on 10-31-2022 Lymphocytes/100 WBC (Bld) 20.5 % 19-41 [facility] Blood monocytes/100 leukocyt esOrdered By: Renard Burgos on 10-31-2022 Monocytes/100 WBC (Bld) 7.9 % 0-10 [facility] Blood platelet mean volumeOr dered By: Renard Burgos on 10-31-2022 Platelet mean volume (Bld) [Entitic vol] 11.1 fL 6.2-12.0 [facility] Determination of erythrocyte mean corpuscular volume (MCV)Ordered By: Renard Burgos on 10-31-2022 MCV (RBC) [Entitic vol] 92.4 fL 80-94 [facility] Hematocrit Auto (Bld) [Volum e fraction]Ordered By: Renard Burgos on 10-31-2022 Hematocrit (Bld) [Volume fraction] 41.3 % 40-54 [facility] Laboratory - Hematology and Cell countsOrdered By: Renard Burgos on 10-31-2022 Erythrocyte distribution width (RBC) [Entitic vol] 42.9 fL 35.1-43.9 [facility] Erythrocyte distribution width (RBC) [Ratio] 12.7 % 11.6-14.6 [facility] Immature granulocytes/100 WBC (Bld) 0.600 % 0.0-0.9 [facility] Comment on above: IG% - Immature Granu locytes (promyelocytes, myelocytes and metamyelocytes) > 1% indicates that a LEFT SHIFT is Present. MCH (RBC) [Entitic mass] 30.2 pg 27.0-32.0 [facility] Nucleated RBC/100 WBC (Bld) [Ratio] 0 % 0-5 [facility] MCHC Auto (RBC) [Mass/Vol]Or dered By: Renard Burgos on 10-31-2022 MCHC (RBC) [Mass/Vol] 32.7 g/dL 32-36 [facility] Platelets bldOrdered By: Lyubov Burgos on 10-31-2022 Platelets (Bld) [#/Vol] 221 10*3/uL 150-450 [facility] Absolute lymphocyte countOrd ered By: Renard Burgos on 10-24-2022 Lymphocytes Auto (Unsp spec) [#/Vol] 1.96 10*3/uL 0.83-4.51 [facility] Basophil percentageOrdered B y: Renard Burgos on 10-24-2022 Basophils/100 WBC (Bld) 0.4 % 0-1 [facility] Eosinophils/100 WBC (Bld) 0.7 % 0-5 [facility] Neutrophils (Bld) [#/Vol] 4.5 10*3/uL 2.0-7.7 [facility] Neutrophils/100 WBC (Bld) 61.9 % 47-70 [facility] WBC (Bld) [#/Vol] 7.3 10*3/uL 4.4-11.0 [facility] Blood erythrocytes count (nu mber/volume)Ordered By: Renard Burgos on 10-24-2022 RBC (Bld) [#/Vol] 4.41 10*6/uL 4.6-6.2 [facility] Blood hemoglobin measurement (mass/volume)Ordered By: Renard Burgos on 10-24-2022 Hemoglobin (Bld) [Mass/Vol] 13.2 g/dL 13.0-16.5 [facility] Blood lymphocytes/100 leukoc ytesOrdered By: Renard Burgos on 10-24-2022 Lymphocytes/100 WBC (Bld) 27.0 % 19-41 [facility] Blood monocytes/100 leukocyt esOrdered By: Renard Burgos on 10-24-2022 Monocytes/100 WBC (Bld) 9.4 % 0-10 [facility] Blood platelet mean volumeOr dered By: Renard Burgos on 10-24-2022 Platelet mean volume (Bld) [Entitic vol] 10.9 fL 6.2-12.0 [facility] Determination of erythrocyte mean corpuscular volume (MCV)Ordered By: Renard Burgos on 10-24-2022 MCV (RBC) [Entitic vol] 92.1 fL 80-94 [facility] Hematocrit Auto (Bld) [Volum e fraction]Ordered By: Renard Burgos on 10-24-2022 Hematocrit (Bld) [Volume fraction] 40.6 % 40-54 [facility] Laboratory - Hematology and Cell countsOrdered By: Renard Burgos on 10-24-2022 Erythrocyte distribution width (RBC) [Entitic vol] 42.8 fL 35.1-43.9 [facility] Erythrocyte distribution width (RBC) [Ratio] 12.8 % 11.6-14.6 [facility] Immature granulocytes/100 WBC (Bld) 0.600 % 0.0-0.9 [facility] Comment on above: IG% - Immature Granu locytes (promyelocytes, myelocytes and metamyelocytes) > 1% indicates that a LEFT SHIFT is Present. MCH (RBC) [Entitic mass] 29.9 pg 27.0-32.0 [facility] Nucleated RBC/100 WBC (Bld) [Ratio] 0 % 0-5 [facility] MCHC Auto (RBC) [Mass/Vol]Or dered By: Renard Burgos on 10-24-2022 MCHC (RBC) [Mass/Vol] 32.5 g/dL 32-36 [facility] Platelets bldOrdered By: Lyubov Burgos on 10-24-2022 Platelets (Bld) [#/Vol] 213 10*3/uL 150-450 [facility] Absolute lymphocyte countOrd ered By: Renard Burgos on 10-17-2022 Lymphocytes Auto (Unsp spec) [#/Vol] 2.05 10*3/uL 0.83-4.51 [facility] Basophil percentageOrdered B y: Renard Burgos on 10-17-2022 Basophils/100 WBC (Bld) 0.4 % 0-1 [facility] Eosinophils/100 WBC (Bld) 0.5 % 0-5 [facility] Neutrophils (Bld) [#/Vol] 6.7 10*3/uL 2.0-7.7 [facility] Neutrophils/100 WBC (Bld) 70.9 % 47-70 [facility] WBC (Bld) [#/Vol] 9.4 10*3/uL 4.4-11.0 [facility] Blood erythrocytes count (nu mber/volume)Ordered By: Renard Burgos on 10-17-2022 RBC (Bld) [#/Vol] 4.33 10*6/uL 4.6-6.2 [facility] Blood hemoglobin measurement (mass/volume)Ordered By: Renard Burgos on 10-17-2022 Hemoglobin (Bld) [Mass/Vol] 13.3 g/dL 13.0-16.5 [facility] Blood lymphocytes/100 leukoc ytesOrdered By: Renard Burgos on 10-17-2022 Lymphocytes/100 WBC (Bld) 21.7 % 19-41 [facility] Blood monocytes/100 leukocyt esOrdered By: Renard Burgos on 10-17-2022 Monocytes/100 WBC (Bld) 6.1 % 0-10 [facility] Blood platelet mean volumeOr dered By: Renard Burgos on 10-17-2022 Platelet mean volume (Bld) [Entitic vol] 10.9 fL 6.2-12.0 [facility] Determination of erythrocyte mean corpuscular volume (MCV)Ordered By: Renard Burgos on 10-17-2022 MCV (RBC) [Entitic vol] 93.8 fL 80-94 [facility] Hematocrit Auto (Bld) [Volum e fraction]Ordered By: Renard Burgos on 10-17-2022 Hematocrit (Bld) [Volume fraction] 40.6 % 40-54 [facility] Laboratory - Hematology and Cell countsOrdered By: Renard Burgos on 10-17-2022 Erythrocyte distribution width (RBC) [Entitic vol] 42.7 fL 35.1-43.9 [facility] Erythrocyte distribution width (RBC) [Ratio] 12.4 % 11.6-14.6 [facility] Immature granulocytes/100 WBC (Bld) 0.400 % 0.0-0.9 [facility] Comment on above: IG% - Immature Granu locytes (promyelocytes, myelocytes and metamyelocytes) > 1% indicates that a LEFT SHIFT is Present. MCH (RBC) [Entitic mass] 30.7 pg 27.0-32.0 [facility] Nucleated RBC/100 WBC (Bld) [Ratio] 0 % 0-5 [facility] MCHC Auto (RBC) [Mass/Vol]Or dered By: Renard Burgos on 10-17-2022 MCHC (RBC) [Mass/Vol] 32.8 g/dL 32-36 [facility] Platelets bldOrdered By: Pet lizy Loretta on 10-17-2022 Platelets (Bld) [#/Vol] 186 10*3/uL 150-450 [facility] Absolute lymphocyte countOrd ered By: Renard Burgos on 10-10-2022 Lymphocytes Auto (Unsp spec) [#/Vol] 2.21 10*3/uL 0.83-4.51 [facility] Basophil percentageOrdered B y: Renard Burgos on 10-10-2022 Basophils/100 WBC (Bld) 0.6 % 0-1 [facility] Eosinophils/100 WBC (Bld) 0.6 % 0-5 [facility] Neutrophils (Bld) [#/Vol] 4.7 10*3/uL 2.0-7.7 [facility] Neutrophils/100 WBC (Bld) 59.6 % 47-70 [facility] WBC (Bld) [#/Vol] 7.9 10*3/uL 4.4-11.0 [facility] Blood erythrocytes count (nu mber/volume)Ordered By: Renard Burgos on 10-10-2022 RBC (Bld) [#/Vol] 4.78 10*6/uL 4.6-6.2 [facility] Blood hemoglobin measurement (mass/volume)Ordered By: Renard Burgos on 10-10-2022 Hemoglobin (Bld) [Mass/Vol] 14.4 g/dL 13.0-16.5 [facility] Blood lymphocytes/100 leukoc ytesOrdered By: Renard Burgos on 10-10-2022 Lymphocytes/100 WBC (Bld) 28.0 % 19-41 [facility] Blood monocytes/100 leukocyt esOrdered By: Renard Burgos on 10-10-2022 Monocytes/100 WBC (Bld) 10.8 % 0-10 [facility] Blood platelet mean volumeOr dered By: Renard Burgos on 10-10-2022 Platelet mean volume (Bld) [Entitic vol] 10.7 fL 6.2-12.0 [facility] Determination of erythrocyte mean corpuscular volume (MCV)Ordered By: Renard Burgos on 10-10-2022 MCV (RBC) [Entitic vol] 94.8 fL 80-94 [facility] Hematocrit Auto (Bld) [Volum e fraction]Ordered By: Renard Burgos on 10-10-2022 Hematocrit (Bld) [Volume fraction] 45.3 % 40-54 [facility] Laboratory - Hematology and Cell countsOrdered By: Renard Burgos on 10-10-2022 Erythrocyte distribution width (RBC) [Entitic vol] 43.8 fL 35.1-43.9 [facility] Erythrocyte distribution width (RBC) [Ratio] 12.6 % 11.6-14.6 [facility] Immature granulocytes/100 WBC (Bld) 0.400 % 0.0-0.9 [facility] Comment on above: IG% - Immature Granu locytes (promyelocytes, myelocytes and metamyelocytes) > 1% indicates that a LEFT SHIFT is Present. MCH (RBC) [Entitic mass] 30.1 pg 27.0-32.0 [facility] Nucleated RBC/100 WBC (Bld) [Ratio] 0 % 0-5 [facility] MCHC Auto (RBC) [Mass/Vol]Or dered By: Renard Burgos on 10-10-2022 MCHC (RBC) [Mass/Vol] 31.8 g/dL 32-36 [facility] Platelets bldOrdered By: Lyubov Burgos on 10-10-2022 Platelets (Bld) [#/Vol] 198 10*3/uL 150-450 [facility] Absolute lymphocyte countOrd ered By: Renard Burgos on 10-03-2022 Lymphocytes Auto (Unsp spec) [#/Vol] 2.00 10*3/uL 0.83-4.51 [facility] Basophil percentageOrdered B y: Renard Burgos on 10-03-2022 Basophils/100 WBC (Bld) 0.6 % 0-1 [facility] Bilirubin [Mass/Vol] 0.30 mg/dL 0.20-1.00 [facility] Comment on above: For patients on eltr ombopag therapy, use of Dimension [place] TBIL is not recommended. Chloride [Moles/Vol] 109 mmol/L 98-107 [facility] Cholesterol [Mass/Vol] 129 mg/dL <200 [facility] Comment on above: <200 mg/dL Desirable 200-240 mg/dL Borderline >240 mg/dL High Risk Eosinophils/100 WBC (Bld) 0.8 % 0-5 [facility] Glucose [Mass/Vol] 82 mg/dL 74-106 [facility] Neutrophils (Bld) [#/Vol] 5.1 10*3/uL 2.0-7.7 [facility] Neutrophils/100 WBC (Bld) 63.2 % 47-70 [facility] Potassium [Moles/Vol] 3.9 mmol/L 3.5-5.1 [facility] Protein [Mass/Vol] 6.1 g/dL 6.4-8.2 [facility] Sodium [Moles/Vol] 140 mmol/L 136-145 [facility] Triglyceride [Mass/Vol] 209 mg/dL <199 [facility] Comment on above: The drugs N-Acetylcy steine and Metamizole may falsely depress this assay.Serum Triglycerides Reference Interval Normal <150 mg/dL Borderline high 150 - 199 mg/dL High 200 - 499 mg/dL Very High > or = 500 mg/dL WBC (Bld) [#/Vol] 8.0 10*3/uL 4.4-11.0 [facility] Blood erythrocytes count (nu mber/volume)Ordered By: Renard Burgos on 10-03-2022 RBC (Bld) [#/Vol] 4.58 10*6/uL 4.6-6.2 [facility] Blood hemoglobin measurement (mass/volume)Ordered By: Renard Burgos on 10-03-2022 Hemoglobin (Bld) [Mass/Vol] 13.9 g/dL 13.0-16.5 [facility] Blood lymphocytes/100 leukoc ytesOrdered By: Renard Burgos on 10-03-2022 Lymphocytes/100 WBC (Bld) 25.1 % 19-41 [facility] Blood monocytes/100 leukocyt esOrdered By: Renard Burgos on 10-03-2022 Monocytes/100 WBC (Bld) 10.0 % 0-10 [facility] Blood platelet mean volumeOr dered By: Renard Burgos on 10-03-2022 Platelet mean volume (Bld) [Entitic vol] 11.1 fL 6.2-12.0 [facility] Determination of erythrocyte mean corpuscular volume (MCV)Ordered By: Renard Burgos on 10-03-2022 MCV (RBC) [Entitic vol] 93.9 fL 80-94 [facility] Hematocrit Auto (Bld) [Volum e fraction]Ordered By: Renard Burgos on 10-03-2022 Hematocrit (Bld) [Volume fraction] 43.0 % 40-54 [facility] Laboratory - Chemistry and C hemistry - challengeOrdered By: Renard Burgos on 10-03-2022 ALP [Catalytic activity/Vol] 98 U/L 45-117 [facility] ALT [Catalytic activity/Vol] 19 U/L 16-61 [facility] CO2 [Moles/Vol] 31.0 mmol/L 21.0-32.0 [facility] Globulin (S) [Mass/Vol] 3.1 g/dL 2.2-4.2 [facility] Urea nitrogen/Creatinine [Mass ratio] 25.6 mg/mg 10-20 [facility] Laboratory - Hematology and Cell countsOrdered By: Renard Burgos on 10-03-2022 Erythrocyte distribution width (RBC) [Entitic vol] 43.8 fL 35.1-43.9 [facility] Erythrocyte distribution width (RBC) [Ratio] 12.7 % 11.6-14.6 [facility] Immature granulocytes/100 WBC (Bld) 0.300 % 0.0-0.9 [facility] Comment on above: IG% - Immature Granu locytes (promyelocytes, myelocytes and metamyelocytes) > 1% indicates that a LEFT SHIFT is Present. MCH (RBC) [Entitic mass] 30.3 pg 27.0-32.0 [facility] Nucleated RBC/100 WBC (Bld) [Ratio] 0 % 0-5 [facility] MCHC Auto (RBC) [Mass/Vol]Or dered By: Renard Burgos on 10-03-2022 MCHC (RBC) [Mass/Vol] 32.3 g/dL 32-36 [facility] No Panel InformationOrdered By: Renard Burgos on 10-03-2022 Estimated GFR (MDRD) Amer 165 mL/min >60 [facility] Comment on above: GFR Calc Estimated GFR (MDRD) Non-Af Amer 137 mL/min >60 [facility] Comment on above: Non- GFR Calc Platelets bldOrdered By: Lyubov Burgos on 10-03-2022 Platelets (Bld) [#/Vol] 204 10*3/uL 150-450 [facility] Serum or plasma albumin gordy urement (mass/volume)Ordered By: Renard Burgos on 10-03-2022 Albumin [Mass/Vol] 3.0 g/dL 3.2-5.0 [facility] Serum or plasma albumin/glob ulin mass ratioOrdered By: Renard Burgos on 10-03-2022 Albumin/Globulin [Mass ratio] 1.0 {ratio} 0.9-2.4 [facility] Serum or plasma calcium gordy urement (mass/volume)Ordered By: Renard Burgos on 10-03-2022 Calcium [Mass/Vol] 8.4 mg/dL 8.5-10.1 [facility] Serum or plasma cholesterol in HDL measurement (mass/volume)Ordered By: Renard Burgos on 10-03-2022 Cholesterol in HDL [Mass/Vol] 29 mg/dL >40 [facility] Comment on above: The drugs N-Acetylcy steine and Metamizole may falsely depress this assay. Reference Range HDL <40 mg/dL Low HDL Cholesterol HDL >or= 60 mg/dL High HDL Cholesterol Serum or plasma cholesterol in VLDL measurement (mass/volume)Ordered By: Renard Burgos on 10-03-2022 Cholesterol in VLDL [Mass/Vol] 42 mg/dL 5-40 [facility] Serum or plasma creatinine m easurement (mass/volume)Ordered By: Renard Burgos on 10-03-2022 Creatinine [Mass/Vol] 0.63 mg/dL 0.70-1.30 [facility] Comment on above: The validity of the calculated GFR & GFRAA in patients over 70 years has not been determined. Clinical correlation is essential. Serum or plasma low density lipoprotein (LDL) cholesterol measurement (mass/volume)Ordered By: Renard Burgos on 10-03-2022 Cholesterol in LDL [Mass/Vol] 58 mg/dL 0-130 [facility] Serum or plasma urea nitroge n measurement (mass/volume)Ordered By: Renard Burgos on 10-03-2022 Urea nitrogen [Mass/Vol] 16 mg/dL 7-18 [facility] Thin prep Papanicolaou smear with manual screeningOrdered By: Renard Burgos on 10-03-2022 Thin prep Papanicolaou smear with manual screening 13 U/L 15-37 [facility] Thin prep Papanicolaou smear with manual screening 0 5-15 [facility] Absolute lymphocyte countOrd ered By: Renard Burgos on 09-19-2022 Lymphocytes Auto (Unsp spec) [#/Vol] 1.59 10*3/uL 0.83-4.51 [facility] Basophil percentageOrdered B y: Renard Burgos on 09-19-2022 Basophils/100 WBC (Bld) 0.5 % 0-1 [facility] Eosinophils/100 WBC (Bld) 0.3 % 0-5 [facility] Neutrophils (Bld) [#/Vol] 7.4 10*3/uL 2.0-7.7 [facility] Neutrophils/100 WBC (Bld) 75.0 % 47-70 [facility] WBC (Bld) [#/Vol] 9.9 10*3/uL 4.4-11.0 [facility] Blood erythrocytes count (nu mber/volume)Ordered By: Renard Burgos on 09-19-2022 RBC (Bld) [#/Vol] 4.46 10*6/uL 4.6-6.2 [facility] Blood hemoglobin measurement (mass/volume)Ordered By: Renard Burgos on 09-19-2022 Hemoglobin (Bld) [Mass/Vol] 13.5 g/dL 13.0-16.5 [facility] Blood lymphocytes/100 leukoc ytesOrdered By: Renard Burgos on 09-19-2022 Lymphocytes/100 WBC (Bld) 16.1 % 19-41 [facility] Blood monocytes/100 leukocyt esOrdered By: Renard Burgos on 09-19-2022 Monocytes/100 WBC (Bld) 7.6 % 0-10 [facility] Blood platelet mean volumeOr dered By: Renard Burgos on 09-19-2022 Platelet mean volume (Bld) [Entitic vol] 10.8 fL 6.2-12.0 [facility] Determination of erythrocyte mean corpuscular volume (MCV)Ordered By: Renard Burgos on 09-19-2022 MCV (RBC) [Entitic vol] 92.2 fL 80-94 [facility] Hematocrit Auto (Bld) [Volum e fraction]Ordered By: Renard Burgos on 09-19-2022 Hematocrit (Bld) [Volume fraction] 41.1 % 40-54 [facility] Laboratory - Hematology and Cell countsOrdered By: Renard Burgos on 09-19-2022 Erythrocyte distribution width (RBC) [Entitic vol] 41.2 fL 35.1-43.9 [facility] Erythrocyte distribution width (RBC) [Ratio] 12.3 % 11.6-14.6 [facility] Immature granulocytes/100 WBC (Bld) 0.500 % 0.0-0.9 [facility] Comment on above: IG% - Immature Granu locytes (promyelocytes, myelocytes and metamyelocytes) > 1% indicates that a LEFT SHIFT is Present. MCH (RBC) [Entitic mass] 30.3 pg 27.0-32.0 [facility] Nucleated RBC/100 WBC (Bld) [Ratio] 0 % 0-5 [facility] MCHC Auto (RBC) [Mass/Vol]Or dered By: Renard Burgos on 09-19-2022 MCHC (RBC) [Mass/Vol] 32.8 g/dL 32-36 [facility] Platelets bldOrdered By: Lyubov Burgos on 09-19-2022 Platelets (Bld) [#/Vol] 245 10*3/uL 150-450 [facility] Absolute lymphocyte countOrd ered By: Renard Burgos on 09-12-2022 Lymphocytes Auto (Unsp spec) [#/Vol] 2.11 10*3/uL 0.83-4.51 [facility] Basophil percentageOrdered B y: Renard Burgos on 09-12-2022 Basophils/100 WBC (Bld) 0.5 % 0-1 [facility] Eosinophils/100 WBC (Bld) 0.7 % 0-5 [facility] Neutrophils (Bld) [#/Vol] 4.7 10*3/uL 2.0-7.7 [facility] Neutrophils/100 WBC (Bld) 63.6 % 47-70 [facility] WBC (Bld) [#/Vol] 7.3 10*3/uL 4.4-11.0 [facility] Blood erythrocytes count (nu mber/volume)Ordered By: Renard Burgos on 09-12-2022 RBC (Bld) [#/Vol] 4.40 10*6/uL 4.6-6.2 [facility] Blood hemoglobin measurement (mass/volume)Ordered By: Reanrd Burgos on 09-12-2022 Hemoglobin (Bld) [Mass/Vol] 13.5 g/dL 13.0-16.5 [facility] Blood lymphocytes/100 leukoc ytesOrdered By: Renard Burgos on 09-12-2022 Lymphocytes/100 WBC (Bld) 28.8 % 19-41 [facility] Blood monocytes/100 leukocyt esOrdered By: Renard Burgos on 09-12-2022 Monocytes/100 WBC (Bld) 6.1 % 0-10 [facility] Blood platelet mean volumeOr dered By: Renard Burgos on 09-12-2022 Platelet mean volume (Bld) [Entitic vol] 10.7 fL 6.2-12.0 [facility] Determination of erythrocyte mean corpuscular volume (MCV)Ordered By: Renard Burgos on 09-12-2022 MCV (RBC) [Entitic vol] 91.4 fL 80-94 [facility] Hematocrit Auto (Bld) [Volum e fraction]Ordered By: Renard Burgos on 09-12-2022 Hematocrit (Bld) [Volume fraction] 40.2 % 40-54 [facility] Laboratory - Hematology and Cell countsOrdered By: Renard Burgos on 09-12-2022 Erythrocyte distribution width (RBC) [Entitic vol] 41.3 fL 35.1-43.9 [facility] Erythrocyte distribution width (RBC) [Ratio] 12.5 % 11.6-14.6 [facility] Immature granulocytes/100 WBC (Bld) 0.300 % 0.0-0.9 [facility] Comment on above: IG% - Immature Granu locytes (promyelocytes, myelocytes and metamyelocytes) > 1% indicates that a LEFT SHIFT is Present. MCH (RBC) [Entitic mass] 30.7 pg 27.0-32.0 [facility] Nucleated RBC/100 WBC (Bld) [Ratio] 0 % 0-5 [facility] MCHC Auto (RBC) [Mass/Vol]Or dered By: Renard Burgos on 09-12-2022 MCHC (RBC) [Mass/Vol] 33.6 g/dL 32-36 [facility] Platelets bldOrdered By: Lyubov Burgos on 09-12-2022 Platelets (Bld) [#/Vol] 197 10*3/uL 150-450 [facility] Absolute lymphocyte countOrd ered By: Renard Burgos on 09-05-2022 Lymphocytes Auto (Unsp spec) [#/Vol] 1.94 10*3/uL 0.83-4.51 [facility] Basophil percentageOrdered B y: Renard Burgos on 09-05-2022 Basophils/100 WBC (Bld) 0.5 % 0-1 [facility] Cholesterol [Mass/Vol] 136 mg/dL <[address] [facility] Comment on above: <200 mg/dL Desirable 200-240 mg/dL Borderline >240 mg/dL High Risk Eosinophils/100 WBC (Bld) 0.4 % 0-5 [facility] Neutrophils (Bld) [#/Vol] 5.4 10*3/uL 2.0-7.7 [facility] Neutrophils/100 WBC (Bld) 67.5 % 47-70 [facility] Triglyceride [Mass/Vol] 304 mg/dL <199 [facility] Comment on above: The drugs N-Acetylcy steine and Metamizole may falsely depress this assay.Serum Triglycerides Reference Interval Normal <150 mg/dL Borderline high 150 - 199 mg/dL High 200 - 499 mg/dL Very High > or = 500 mg/dL WBC (Bld) [#/Vol] 7.9 10*3/uL 4.4-11.0 [facility] Blood erythrocytes count (nu mber/volume)Ordered By: Renard Burgos on 09-05-2022 RBC (Bld) [#/Vol] 4.28 10*6/uL 4.6-6.2 [facility] Blood hemoglobin measurement (mass/volume)Ordered By: Renard Burgos on 09-05-2022 Hemoglobin (Bld) [Mass/Vol] 12.9 g/dL 13.0-16.5 [facility] Blood lymphocytes/100 leukoc ytesOrdered By: Renard Burgos on 09-05-2022 Lymphocytes/100 WBC (Bld) 24.5 % 19-41 [facility] Blood monocytes/100 leukocyt esOrdered By: Renard Burgos on 09-05-2022 Monocytes/100 WBC (Bld) 6.6 % 0-10 [facility] Blood platelet mean volumeOr dered By: Renard Burgos on 09-05-2022 Platelet mean volume (Bld) [Entitic vol] 10.7 fL 6.2-12.0 [facility] Determination of erythrocyte mean corpuscular volume (MCV)Ordered By: Renard Burgos on 09-05-2022 MCV (RBC) [Entitic vol] 91.4 fL 80-94 [facility] Hematocrit Auto (Bld) [Volum e fraction]Ordered By: Renard Burgos on 09-05-2022 Hematocrit (Bld) [Volume fraction] 39.1 % 40-54 [facility] Laboratory - Hematology and Cell countsOrdered By: Renard Burgos on 09-05-2022 Erythrocyte distribution width (RBC) [Entitic vol] 41.5 fL 35.1-43.9 [facility] Erythrocyte distribution width (RBC) [Ratio] 12.6 % 11.6-14.6 [facility] Immature granulocytes/100 WBC (Bld) 0.500 % 0.0-0.9 [facility] Comment on above: IG% - Immature Granu locytes (promyelocytes, myelocytes and metamyelocytes) > 1% indicates that a LEFT SHIFT is Present. MCH (RBC) [Entitic mass] 30.1 pg 27.0-32.0 [facility] Nucleated RBC/100 WBC (Bld) [Ratio] 0 % 0-5 [facility] MCHC Auto (RBC) [Mass/Vol]Or dered By: Renard Burgos on 09-05-2022 MCHC (RBC) [Mass/Vol] 33.0 g/dL 32-36 [facility] Platelets bldOrdered By: Lyubov Burgos on 09-05-2022 Platelets (Bld) [#/Vol] 200 10*3/uL 150-450 [facility] Serum or plasma cholesterol in HDL measurement (mass/volume)Ordered By: Renard Burgos on 09-05-2022 Cholesterol in HDL [Mass/Vol] 24 mg/dL >40 [facility] Comment on above: The drugs N-Acetylcy steine and Metamizole may falsely depress this assay. Reference Range HDL <40 mg/dL Low HDL Cholesterol HDL >or= 60 mg/dL High HDL Cholesterol Serum or plasma cholesterol in VLDL measurement (mass/volume)Ordered By: eRnard Burgos on 09-05-2022 Cholesterol in VLDL [Mass/Vol] 61 mg/dL 5-40 [facility] Serum or plasma low density lipoprotein (LDL) cholesterol measurement (mass/volume)Ordered By: Renard Burgos on 09-05-2022 Cholesterol in LDL [Mass/Vol] 51 mg/dL 0-130 [facility] Absolute lymphocyte countOrd ered By: Renard Burgos on 08-29-2022 Lymphocytes Auto (Unsp spec) [#/Vol] 1.91 10*3/uL 0.83-4.51 [facility] Basophil percentageOrdered B y: Renard Burgos on 08-29-2022 Basophils/100 WBC (Bld) 0.4 % 0-1 [facility] Eosinophils/100 WBC (Bld) 0.4 % 0-5 [facility] Neutrophils (Bld) [#/Vol] 4.8 10*3/uL 2.0-7.7 [facility] Neutrophils/100 WBC (Bld) 66.0 % 47-70 [facility] WBC (Bld) [#/Vol] 7.3 10*3/uL 4.4-11.0 [facility] Blood erythrocytes count (nu mber/volume)Ordered By: Renard Burgos on 08-29-2022 RBC (Bld) [#/Vol] 4.43 10*6/uL 4.6-6.2 [facility] Blood hemoglobin measurement (mass/volume)Ordered By: Renard Burgos on 08-29-2022 Hemoglobin (Bld) [Mass/Vol] 13.6 g/dL 13.0-16.5 [facility] Blood lymphocytes/100 leukoc ytesOrdered By: Renard Burgos on 08-29-2022 Lymphocytes/100 WBC (Bld) 26.2 % 19-41 [facility] Blood monocytes/100 leukocyt esOrdered By: Renard Burgos on 08-29-2022 Monocytes/100 WBC (Bld) 6.6 % 0-10 [facility] Blood platelet mean volumeOr dered By: Renard Burgos on 08-29-2022 Platelet mean volume (Bld) [Entitic vol] 11.0 fL 6.2-12.0 [facility] Determination of erythrocyte mean corpuscular volume (MCV)Ordered By: Renard Burgos on 08-29-2022 MCV (RBC) [Entitic vol] 92.1 fL 80-94 [facility] Hematocrit Auto (Bld) [Volum e fraction]Ordered By: Renard Burgos on 08-29-2022 Hematocrit (Bld) [Volume fraction] 40.8 % 40-54 [facility] Laboratory - Hematology and Cell countsOrdered By: Renard Burgos on 08-29-2022 Erythrocyte distribution width (RBC) [Entitic vol] 42.0 fL 35.1-43.9 [facility] Erythrocyte distribution width (RBC) [Ratio] 12.4 % 11.6-14.6 [facility] Immature granulocytes/100 WBC (Bld) 0.400 % 0.0-0.9 [facility] Comment on above: IG% - Immature Granu locytes (promyelocytes, myelocytes and metamyelocytes) > 1% indicates that a LEFT SHIFT is Present. MCH (RBC) [Entitic mass] 30.7 pg 27.0-32.0 [facility] Nucleated RBC/100 WBC (Bld) [Ratio] 0 % 0-5 [facility] MCHC Auto (RBC) [Mass/Vol]Or dered By: Renard Burgos on 08-29-2022 MCHC (RBC) [Mass/Vol] 33.3 g/dL 32-36 [facility] Platelets bldOrdered By: Lyubov Burgos on 08-29-2022 Platelets (Bld) [#/Vol] 195 10*3/uL 150-450 [facility] Absolute lymphocyte countOrd ered By: Renard Burgos on 08-22-2022 Lymphocytes Auto (Unsp spec) [#/Vol] 1.86 10*3/uL 0.83-4.51 [facility] Basophil percentageOrdered B y: Renard Burgos on 08-22-2022 Basophils/100 WBC (Bld) 0.4 % 0-1 [facility] Eosinophils/100 WBC (Bld) 0.4 % 0-5 [facility] Neutrophils (Bld) [#/Vol] 6.5 10*3/uL 2.0-7.7 [facility] Neutrophils/100 WBC (Bld) 70.5 % 47-70 [facility] WBC (Bld) [#/Vol] 9.3 10*3/uL 4.4-11.0 [facility] Blood erythrocytes count (nu mber/volume)Ordered By: Renard Burgos on 08-22-2022 RBC (Bld) [#/Vol] 4.55 10*6/uL 4.6-6.2 [facility] Blood hemoglobin measurement (mass/volume)Ordered By: Renard Burgos on 08-22-2022 Hemoglobin (Bld) [Mass/Vol] 14.1 g/dL 13.0-16.5 [facility] Blood lymphocytes/100 leukoc ytesOrdered By: Renard Burgos on 08-22-2022 Lymphocytes/100 WBC (Bld) 20.1 % 19-41 [facility] Blood monocytes/100 leukocyt esOrdered By: Renard Burgos on 08-22-2022 Monocytes/100 WBC (Bld) 8.3 % 0-10 [facility] Blood platelet mean volumeOr dered By: Renard Burgos on 08-22-2022 Platelet mean volume (Bld) [Entitic vol] 10.8 fL 6.2-12.0 [facility] Determination of erythrocyte mean corpuscular volume (MCV)Ordered By: Renard Burgos on 08-22-2022 MCV (RBC) [Entitic vol] 91.9 fL 80-94 [facility] Hematocrit Auto (Bld) [Volum e fraction]Ordered By: Renard Burgos on 08-22-2022 Hematocrit (Bld) [Volume fraction] 41.8 % 40-54 [facility] Laboratory - Hematology and Cell countsOrdered By: Renard Burgos on 08-22-2022 Erythrocyte distribution width (RBC) [Entitic vol] 42.5 fL 35.1-43.9 [facility] Erythrocyte distribution width (RBC) [Ratio] 12.6 % 11.6-14.6 [facility] Immature granulocytes/100 WBC (Bld) 0.300 % 0.0-0.9 [facility] Comment on above: IG% - Immature Granu locytes (promyelocytes, myelocytes and metamyelocytes) > 1% indicates that a LEFT SHIFT is Present. MCH (RBC) [Entitic mass] 31.0 pg 27.0-32.0 [facility] Nucleated RBC/100 WBC (Bld) [Ratio] 0 % 0-5 [facility] MCHC Auto (RBC) [Mass/Vol]Or dered By: Renard Burgos on 08-22-2022 MCHC (RBC) [Mass/Vol] 33.7 g/dL 32-36 [facility] Platelets bldOrdered By: Lyubov Burgos on 08-22-2022 Platelets (Bld) [#/Vol] 197 10*3/uL 150-450 [facility] Absolute lymphocyte countOrd ered By: Renard Burgos on 08-15-2022 Lymphocytes Auto (Unsp spec) [#/Vol] 1.88 10*3/uL 0.83-4.51 [facility] Basophil percentageOrdered B y: Renard Burgos on 08-15-2022 Basophils/100 WBC (Bld) 0.5 % 0-1 [facility] Eosinophils/100 WBC (Bld) 0.5 % 0-5 [facility] Neutrophils (Bld) [#/Vol] 5.1 10*3/uL 2.0-7.7 [facility] Neutrophils/100 WBC (Bld) 65.0 % 47-70 [facility] WBC (Bld) [#/Vol] 7.9 10*3/uL 4.4-11.0 [facility] Blood erythrocytes count (nu mber/volume)Ordered By: Renard Burgos on 08-15-2022 RBC (Bld) [#/Vol] 4.48 10*6/uL 4.6-6.2 [facility] Blood hemoglobin measurement (mass/volume)Ordered By: Renard Burgos on 08-15-2022 Hemoglobin (Bld) [Mass/Vol] 13.7 g/dL 13.0-16.5 [facility] Blood lymphocytes/100 leukoc ytesOrdered By: Renard Burgos on 08-15-2022 Lymphocytes/100 WBC (Bld) 23.9 % 19-41 [facility] Blood monocytes/100 leukocyt esOrdered By: Renard Burgos on 08-15-2022 Monocytes/100 WBC (Bld) 9.8 % 0-10 [facility] Blood platelet mean volumeOr dered By: Renard Burgos on 08-15-2022 Platelet mean volume (Bld) [Entitic vol] 10.7 fL 6.2-12.0 [facility] Determination of erythrocyte mean corpuscular volume (MCV)Ordered By: Renard Burgos on 08-15-2022 MCV (RBC) [Entitic vol] 91.1 fL 80-94 [facility] Hematocrit Auto (Bld) [Volum e fraction]Ordered By: Renard Burgos on 08-15-2022 Hematocrit (Bld) [Volume fraction] 40.8 % 40-54 [facility] Laboratory - Hematology and Cell countsOrdered By: Renard Burgos on 08-15-2022 Erythrocyte distribution width (RBC) [Entitic vol] 41.0 fL 35.1-43.9 [facility] Erythrocyte distribution width (RBC) [Ratio] 12.4 % 11.6-14.6 [facility] Immature granulocytes/100 WBC (Bld) 0.300 % 0.0-0.9 [facility] Comment on above: IG% - Immature Granu locytes (promyelocytes, myelocytes and metamyelocytes) > 1% indicates that a LEFT SHIFT is Present. MCH (RBC) [Entitic mass] 30.6 pg 27.0-32.0 [facility] Nucleated RBC/100 WBC (Bld) [Ratio] 0 % 0-5 [facility] MCHC Auto (RBC) [Mass/Vol]Or dered By: Renard Burgos on 08-15-2022 MCHC (RBC) [Mass/Vol] 33.6 g/dL 32-36 [facility] Platelets bldOrdered By: Lyubov Burgos on 08-15-2022 Platelets (Bld) [#/Vol] 212 10*3/uL 150-450 [facility] Absolute lymphocyte countOrd ered By: Renard Burgos on 08-08-2022 Lymphocytes Auto (Unsp spec) [#/Vol] 1.96 10*3/uL 0.83-4.51 [facility] Basophil percentageOrdered B y: Renard Burgos on 08-08-2022 Basophils/100 WBC (Bld) 0.5 % 0-1 [facility] Eosinophils/100 WBC (Bld) 0.5 % 0-5 [facility] Neutrophils (Bld) [#/Vol] 4.7 10*3/uL 2.0-7.7 [facility] Neutrophils/100 WBC (Bld) 64.1 % 47-70 [facility] WBC (Bld) [#/Vol] 7.4 10*3/uL 4.4-11.0 [facility] Blood erythrocytes count (nu mber/volume)Ordered By: Renard Burgos on 08-08-2022 RBC (Bld) [#/Vol] 4.44 10*6/uL 4.6-6.2 [facility] Blood hemoglobin measurement (mass/volume)Ordered By: Renard Burgos on 08-08-2022 Hemoglobin (Bld) [Mass/Vol] 13.6 g/dL 13.0-16.5 [facility] Blood lymphocytes/100 leukoc ytesOrdered By: Renard Burgos on 08-08-2022 Lymphocytes/100 WBC (Bld) 26.5 % 19-41 [facility] Blood monocytes/100 leukocyt esOrdered By: Renard Burgos on 08-08-2022 Monocytes/100 WBC (Bld) 8.1 % 0-10 [facility] Blood platelet mean volumeOr dered By: Renard Burgos on 08-08-2022 Platelet mean volume (Bld) [Entitic vol] 10.8 fL 6.2-12.0 [facility] Determination of erythrocyte mean corpuscular volume (MCV)Ordered By: Renard Burgos on 08-08-2022 MCV (RBC) [Entitic vol] 91.7 fL 80-94 [facility] Hematocrit Auto (Bld) [Volum e fraction]Ordered By: Renard Burgos on 08-08-2022 Hematocrit (Bld) [Volume fraction] 40.7 % 40-54 [facility] Laboratory - Hematology and Cell countsOrdered By: Renard Burgos on 08-08-2022 Erythrocyte distribution width (RBC) [Entitic vol] 42.7 fL 35.1-43.9 [facility] Erythrocyte distribution width (RBC) [Ratio] 12.6 % 11.6-14.6 [facility] Immature granulocytes/100 WBC (Bld) 0.300 % 0.0-0.9 [facility] Comment on above: IG% - Immature Granu locytes (promyelocytes, myelocytes and metamyelocytes) > 1% indicates that a LEFT SHIFT is Present. MCH (RBC) [Entitic mass] 30.6 pg 27.0-32.0 [facility] Nucleated RBC/100 WBC (Bld) [Ratio] 0 % 0-5 [facility] MCHC Auto (RBC) [Mass/Vol]Or dered By: Renard Burgos on 08-08-2022 MCHC (RBC) [Mass/Vol] 33.4 g/dL 32-36 [facility] Platelets bldOrdered By: Lyubov Burgos on 08-08-2022 Platelets (Bld) [#/Vol] 187 10*3/uL 150-450 [facility] Absolute lymphocyte countOrd ered By: Renard Burgos on 08-01-2022 Lymphocytes Auto (Unsp spec) [#/Vol] 2.09 10*3/uL 0.83-4.51 [facility] Basophil percentageOrdered B y: Renard Burgos on 08-01-2022 Basophils/100 WBC (Bld) 0.4 % 0-1 [facility] Eosinophils/100 WBC (Bld) 0.4 % 0-5 [facility] Neutrophils (Bld) [#/Vol] 6.6 10*3/uL 2.0-7.7 [facility] Neutrophils/100 WBC (Bld) 69.1 % 47-70 [facility] WBC (Bld) [#/Vol] 9.5 10*3/uL 4.4-11.0 [facility] Blood erythrocytes count (nu mber/volume)Ordered By: Renard Burgos on 08-01-2022 RBC (Bld) [#/Vol] 4.48 10*6/uL 4.6-6.2 [facility] Blood hemoglobin measurement (mass/volume)Ordered By: Renard Burgos on 08-01-2022 Hemoglobin (Bld) [Mass/Vol] 13.9 g/dL 13.0-16.5 [facility] Blood lymphocytes/100 leukoc ytesOrdered By: Renard Burgos on 08-01-2022 Lymphocytes/100 WBC (Bld) 21.9 % 19-41 [facility] Blood monocytes/100 leukocyt esOrdered By: Renard Burgos on 08-01-2022 Monocytes/100 WBC (Bld) 7.9 % 0-10 [facility] Blood platelet mean volumeOr dered By: Renard Burgos on 08-01-2022 Platelet mean volume (Bld) [Entitic vol] 11.0 fL 6.2-12.0 [facility] Determination of erythrocyte mean corpuscular volume (MCV)Ordered By: Renard Burgos on 08-01-2022 MCV (RBC) [Entitic vol] 91.5 fL 80-94 [facility] Hematocrit Auto (Bld) [Volum e fraction]Ordered By: Renard Burgos on 08-01-2022 Hematocrit (Bld) [Volume fraction] 41.0 % 40-54 [facility] - Hematology and Cell countsOrdered By: Renard Burgos on 08-01-2022 Erythrocyte distribution width (RBC) [Entitic vol] 41.6 fL 35.1-43.9 [facility] Erythrocyte distribution width (RBC) [Ratio] 12.5 % 11.6-14.6 [facility] Immature granulocytes/100 WBC (Bld) 0.300 % 0.0-0.9 [facility] Comment on above: IG% - Immature Granu locytes (promyelocytes, myelocytes and metamyelocytes) > 1% indicates that a LEFT SHIFT is Present. MCH (RBC) [Entitic mass] 31.0 pg 27.0-32.0 [facility] Nucleated RBC/100 WBC (Bld) [Ratio] 0 % 0-5 [facility] MCHC Auto (RBC) [Mass/Vol]Or dered By: Renard Burgos on 08-01-2022 MCHC (RBC) [Mass/Vol] 33.9 g/dL 32-36 [facility] Platelets bldOrdered By: Lyubov Burgos on 08-01-2022 Platelets (Bld) [#/Vol] 208 10*3/uL 150-450 [facility] Absolute lymphocyte countOrd ered By: Renard Bugros on 07-25-2022 Lymphocytes Auto (Unsp spec) [#/Vol] 2.16 10*3/uL 0.83-4.51 [facility] Basophil percentageOrdered B y: Renard Burgos on 07-25-2022 Basophils/100 WBC (Bld) 0.6 % 0-1 [facility] Eosinophils/100 WBC (Bld) 0.6 % 0-5 [facility] Neutrophils (Bld) [#/Vol] 5.4 10*3/uL 2.0-7.7 [facility] Neutrophils/100 WBC (Bld) 64.5 % 47-70 [facility] WBC (Bld) [#/Vol] 8.4 10*3/uL 4.4-11.0 [facility] Blood erythrocytes count (nu mber/volume)Ordered By: Renard Burgos on 07-25-2022 RBC (Bld) [#/Vol] 4.45 10*6/uL 4.6-6.2 [facility] Blood hemoglobin measurement (mass/volume)Ordered By: Renard Burgos on 07-25-2022 Hemoglobin (Bld) [Mass/Vol] 13.4 g/dL 13.0-16.5 [facility] Blood lymphocytes/100 leukoc ytesOrdered By: Renard Burgos on 07-25-2022 Lymphocytes/100 WBC (Bld) 25.7 % 19-41 [facility] Blood monocytes/100 leukocyt esOrdered By: Renard Burgos on 07-25-2022 Monocytes/100 WBC (Bld) 8.4 % 0-10 [facility] Blood platelet mean volumeOr dered By: Renard Burgos on 07-25-2022 Platelet mean volume (Bld) [Entitic vol] 11.0 fL 6.2-12.0 [facility] Determination of erythrocyte mean corpuscular volume (MCV)Ordered By: Renard Burgos on 07-25-2022 MCV (RBC) [Entitic vol] 92.8 fL 80-94 [facility] Hematocrit Auto (Bld) [Volum e fraction]Ordered By: Renard Burgos on 07-25-2022 Hematocrit (Bld) [Volume fraction] 41.3 % 40-54 [facility] Laboratory - Hematology and Cell countsOrdered By: Renard Burgos on 07-25-2022 Erythrocyte distribution width (RBC) [Entitic vol] 42.5 fL 35.1-43.9 [facility] Erythrocyte distribution width (RBC) [Ratio] 12.5 % 11.6-14.6 [facility] Immature granulocytes/100 WBC (Bld) 0.200 % 0.0-0.9 [facility] Comment on above: IG% - Immature Granu locytes (promyelocytes, myelocytes and metamyelocytes) > 1% indicates that a LEFT SHIFT is Present. MCH (RBC) [Entitic mass] 30.1 pg 27.0-32.0 [facility] Nucleated RBC/100 WBC (Bld) [Ratio] 0 % 0-5 [facility] MCHC Auto (RBC) [Mass/Vol]Or dered By: Renard uBrgos on 07-25-2022 MCHC (RBC) [Mass/Vol] 32.4 g/dL 32-36 [facility] Platelets bldOrdered By: Lyubov Burgos on 07-25-2022 Platelets (Bld) [#/Vol] 200 10*3/uL 150-450 [facility] No Panel InformationOrdered By: Renard Burgos on 07-19-2022 Vitamin D 25-Hydroxy 34.2 ng/mL [facility] Comment on above: Vitamin D 25(OH) Sta tus Range Deficiency <20 ng/mL (50nmol/L) Insufficiency 20 - 30 ng/mL (50 - 75 nmol/L) Sufficiency 30 - 100 ng/mL (75 - 250 nmol/L) Toxicity >100 ng/mL (>250 nmol/L) Absolute lymphocyte countOrd ered By: Renard Burgos on 07-18-2022 Lymphocytes Auto (Unsp spec) [#/Vol] 2.48 10*3/uL 0.83-4.51 [facility] Basophil percentageOrdered B y: Renard Burgos on 07-18-2022 Basophils/100 WBC (Bld) 0.5 % 0-1 [facility] Eosinophils/100 WBC (Bld) 0.6 % 0-5 [facility] Neutrophils (Bld) [#/Vol] 5.9 10*3/uL 2.0-7.7 [facility] Neutrophils/100 WBC (Bld) 61.6 % 47-70 [facility] WBC (Bld) [#/Vol] 9.6 10*3/uL 4.4-11.0 [facility] Blood erythrocytes count (nu mber/volume)Ordered By: Renard Burgos on 07-18-2022 RBC (Bld) [#/Vol] 4.56 10*6/uL 4.6-6.2 [facility] Blood hemoglobin measurement (mass/volume)Ordered By: Renard Burgos on 07-18-2022 Hemoglobin (Bld) [Mass/Vol] 13.9 g/dL 13.0-16.5 [facility] Blood lymphocytes/100 leukoc ytesOrdered By: Renard Burgos on 07-18-2022 Lymphocytes/100 WBC (Bld) 25.9 % 19-41 [facility] Blood monocytes/100 leukocyt esOrdered By: Renard Burgos on 07-18-2022 Monocytes/100 WBC (Bld) 11.0 % 0-10 [facility] Blood platelet mean volumeOr dered By: Renard Burgos on 07-18-2022 Platelet mean volume (Bld) [Entitic vol] 11.3 fL 6.2-12.0 [facility] Determination of erythrocyte mean corpuscular volume (MCV)Ordered By: Renard Burgos on 07-18-2022 MCV (RBC) [Entitic vol] 93.9 fL 80-94 [facility] Hematocrit Auto (Bld) [Volum e fraction]Ordered By: Renard Burgos on 07-18-2022 Hematocrit (Bld) [Volume fraction] 42.8 % 40-54 [facility] Laboratory - Hematology and Cell countsOrdered By: Renard Burgos on 07-18-2022 Erythrocyte distribution width (RBC) [Entitic vol] 44.0 fL 35.1-43.9 [facility] Erythrocyte distribution width (RBC) [Ratio] 12.8 % 11.6-14.6 [facility] Immature granulocytes/100 WBC (Bld) 0.400 % 0.0-0.9 [facility] Comment on above: IG% - Immature Granu locytes (promyelocytes, myelocytes and metamyelocytes) > 1% indicates that a LEFT SHIFT is Present. MCH (RBC) [Entitic mass] 30.5 pg 27.0-32.0 [facility] Nucleated RBC/100 WBC (Bld) [Ratio] 0 % 0-5 [facility] MCHC Auto (RBC) [Mass/Vol]Or dered By: Renard Burgos on 07-18-2022 MCHC (RBC) [Mass/Vol] 32.5 g/dL 32-36 [facility] Platelets bldOrdered By: Lyubov Burgos on 07-18-2022 Platelets (Bld) [#/Vol] 207 10*3/uL 150-450 [facility] Absolute lymphocyte countOrd ered By: Renard Burgos on 07-11-2022 Lymphocytes Auto (Unsp spec) [#/Vol] 2.37 10*3/uL 0.83-4.51 [facility] Basophil percentageOrdered B y: Renard Burgos on 07-11-2022 Basophils/100 WBC (Bld) 0.6 % 0-1 [facility] Eosinophils/100 WBC (Bld) 0.5 % 0-5 [facility] Neutrophils (Bld) [#/Vol] 5.3 10*3/uL 2.0-7.7 [facility] Neutrophils/100 WBC (Bld) 61.8 % 47-70 [facility] WBC (Bld) [#/Vol] 8.5 10*3/uL 4.4-11.0 [facility] Blood erythrocytes count (nu mber/volume)Ordered By: Renard Burgos on 07-11-2022 RBC (Bld) [#/Vol] 4.83 10*6/uL 4.6-6.2 [facility] Blood hemoglobin measurement (mass/volume)Ordered By: Renard Burgos on 07-11-2022 Hemoglobin (Bld) [Mass/Vol] 14.7 g/dL 13.0-16.5 [facility] Blood lymphocytes/100 leukoc ytesOrdered By: Renard Burgos on 07-11-2022 Lymphocytes/100 WBC (Bld) 27.8 % 19-41 [facility] Blood monocytes/100 leukocyt esOrdered By: Renard Burgos on 07-11-2022 Monocytes/100 WBC (Bld) 8.8 % 0-10 [facility] Blood platelet mean volumeOr dered By: Renard Burgos on 07-11-2022 Platelet mean volume (Bld) [Entitic vol] 10.6 fL 6.2-12.0 [facility] Determination of erythrocyte mean corpuscular volume (MCV)Ordered By: Renard Burgos on 07-11-2022 MCV (RBC) [Entitic vol] 90.7 fL 80-94 [facility] Hematocrit Auto (Bld) [Volum e fraction]Ordered By: Renard Burgos on 07-11-2022 Hematocrit (Bld) [Volume fraction] 43.8 % 40-54 [facility] Laboratory - Hematology and Cell countsOrdered By: Renard Burgos on 07-11-2022 Erythrocyte distribution width (RBC) [Entitic vol] 41.2 fL 35.1-43.9 [facility] Erythrocyte distribution width (RBC) [Ratio] 12.7 % 11.6-14.6 [facility] Immature granulocytes/100 WBC (Bld) 0.500 % 0.0-0.9 [facility] Comment on above: IG% - Immature Granu locytes (promyelocytes, myelocytes and metamyelocytes) > 1% indicates that a LEFT SHIFT is Present. MCH (RBC) [Entitic mass] 30.4 pg 27.0-32.0 [facility] Nucleated RBC/100 WBC (Bld) [Ratio] 0 % 0-5 [facility] MCHC Auto (RBC) [Mass/Vol]Or dered By: Renard Burgos on 07-11-2022 MCHC (RBC) [Mass/Vol] 33.6 g/dL 32-36 [facility] Platelets bldOrdered By: [facility] lizy Loretta on 07-11-2022 Platelets (Bld) [#/Vol] 207 10*3/uL 150-450 [facility] Absolute lymphocyte countOrd ered By: Renard Burgos on 07-04-2022 Lymphocytes Auto (Unsp spec) [#/Vol] 1.87 10*3/uL 0.83-4.51 [facility] Basophil percentageOrdered B y: Renard Burgos on 07-04-2022 Basophils/100 WBC (Bld) 0.4 % 0-1 [facility] Eosinophils/100 WBC (Bld) 0.5 % 0-5 [facility] Neutrophils (Bld) [#/Vol] 7.5 10*3/uL 2.0-7.7 [facility] Neutrophils/100 WBC (Bld) 72.8 % 47-70 [facility] WBC (Bld) [#/Vol] 10.3 10*3/uL 4.4-11.0 [facility] Blood erythrocytes count (nu mber/volume)Ordered By: Renard Burgos on 07-04-2022 RBC (Bld) [#/Vol] 4.45 10*6/uL 4.6-6.2 [facility] Blood hemoglobin measurement (mass/volume)Ordered By: Renard Burgos on 07-04-2022 Hemoglobin (Bld) [Mass/Vol] 13.5 g/dL 13.0-16.5 [facility] Blood lymphocytes/100 leukoc ytesOrdered By: Renard Burgos on 07-04-2022 Lymphocytes/100 WBC (Bld) 18.1 % 19-41 [facility] Blood monocytes/100 leukocyt esOrdered By: Renard Burgos on 07-04-2022 Monocytes/100 WBC (Bld) 7.7 % 0-10 [facility] Blood platelet mean volumeOr dered By: Renard Burgos on 07-04-2022 Platelet mean volume (Bld) [Entitic vol] 11.3 fL 6.2-12.0 [facility] Determination of erythrocyte mean corpuscular volume (MCV)Ordered By: Renard Burgos on 07-04-2022 MCV (RBC) [Entitic vol] 93.0 fL 80-94 [facility] Hematocrit Auto (Bld) [Volum e fraction]Ordered By: Renard Burgos on 07-04-2022 Hematocrit (Bld) [Volume fraction] 41.4 % 40-54 [facility] Laboratory - Hematology and Cell countsOrdered By: Renard Burgos on 07-04-2022 Erythrocyte distribution width (RBC) [Entitic vol] 43.0 fL 35.1-43.9 [facility] Erythrocyte distribution width (RBC) [Ratio] 12.5 % 11.6-14.6 [facility] Immature granulocytes/100 WBC (Bld) 0.500 % 0.0-0.9 [facility] Comment on above: IG% - Immature Granu locytes (promyelocytes, myelocytes and metamyelocytes) > 1% indicates that a LEFT SHIFT is Present. MCH (RBC) [Entitic mass] 30.3 pg 27.0-32.0 [facility] Nucleated RBC/100 WBC (Bld) [Ratio] 0 % 0-5 [facility] MCHC Auto (RBC) [Mass/Vol]Or dered By: Renard Burgos on 07-04-2022 MCHC (RBC) [Mass/Vol] 32.6 g/dL 32-36 [facility] Platelets bldOrdered By: Lyubov Burgos on 07-04-2022 Platelets (Bld) [#/Vol] 211 10*3/uL 150-450 [facility] Absolute lymphocyte countOrd ered By: Renard Burgos on 06-27-2022 Lymphocytes Auto (Unsp spec) [#/Vol] 1.83 10*3/uL 0.83-4.51 [facility] Basophil percentageOrdered B y: Renard Burgos on 06-27-2022 Basophils/100 WBC (Bld) 0.4 % 0-1 [facility] Eosinophils/100 WBC (Bld) 0.5 % 0-5 [facility] Neutrophils (Bld) [#/Vol] 5.0 10*3/uL 2.0-7.7 [facility] Neutrophils/100 WBC (Bld) 67.6 % 47-70 [facility] WBC (Bld) [#/Vol] 7.4 10*3/uL 4.4-11.0 [facility] Blood erythrocytes count (nu mber/volume)Ordered By: Renard Burgos on 06-27-2022 RBC (Bld) [#/Vol] 4.52 10*6/uL 4.6-6.2 [facility] Blood hemoglobin measurement (mass/volume)Ordered By: Renard Burgos on 06-27-2022 Hemoglobin (Bld) [Mass/Vol] 13.9 g/dL 13.0-16.5 [facility] Blood lymphocytes/100 leukoc ytesOrdered By: Renard Burgos on 06-27-2022 Lymphocytes/100 WBC (Bld) 24.7 % 19-41 [facility] Blood monocytes/100 leukocyt esOrdered By: Renard Burgos on 06-27-2022 Monocytes/100 WBC (Bld) 6.4 % 0-10 [facility] Blood platelet mean volumeOr dered By: Renard Burgos on 06-27-2022 Platelet mean volume (Bld) [Entitic vol] 10.7 fL 6.2-12.0 [facility] Determination of erythrocyte mean corpuscular volume (MCV)Ordered By: Renard Burgos on 06-27-2022 MCV (RBC) [Entitic vol] 91.2 fL 80-94 [facility] Hematocrit Auto (Bld) [Volum e fraction]Ordered By: Renard Burgos on 06-27-2022 Hematocrit (Bld) [Volume fraction] 41.2 % 40-54 [facility] Laboratory - Hematology and Cell countsOrdered By: Renard Burgos on 06-27-2022 Erythrocyte distribution width (RBC) [Entitic vol] 41.9 fL 35.1-43.9 [facility] Erythrocyte distribution width (RBC) [Ratio] 12.7 % 11.6-14.6 [facility] Immature granulocytes/100 WBC (Bld) 0.400 % 0.0-0.9 [facility] Comment on above: IG% - Immature Granu locytes (promyelocytes, myelocytes and metamyelocytes) > 1% indicates that a LEFT SHIFT is Present. MCH (RBC) [Entitic mass] 30.8 pg 27.0-32.0 [facility] Nucleated RBC/100 WBC (Bld) [Ratio] 0 % 0-5 [facility] MCHC Auto (RBC) [Mass/Vol]Or dered By: Renard Burgos on 06-27-2022 MCHC (RBC) [Mass/Vol] 33.7 g/dL 32-36 [facility] Platelets bldOrdered By: Lyubov Burgos on 06-27-2022 Platelets (Bld) [#/Vol] 200 10*3/uL 150-450 [facility] Absolute lymphocyte countOrd ered By: Renard Burgos on 06-20-2022 Lymphocytes Auto (Unsp spec) [#/Vol] 1.57 10*3/uL 0.83-4.51 [facility] Basophil percentageOrdered B y: Renard Burgos on 06-20-2022 Basophils/100 WBC (Bld) 0.2 % 0-1 [facility] Eosinophils/100 WBC (Bld) 0.2 % 0-5 [facility] Neutrophils (Bld) [#/Vol] 6.5 10*3/uL 2.0-7.7 [facility] Neutrophils/100 WBC (Bld) 74.5 % 47-70 [facility] WBC (Bld) [#/Vol] 8.8 10*3/uL 4.4-11.0 [facility] Blood erythrocytes count (nu mber/volume)Ordered By: Renard Burgos on 06-20-2022 RBC (Bld) [#/Vol] 4.79 10*6/uL 4.6-6.2 [facility] Blood hemoglobin measurement (mass/volume)Ordered By: Renard Burgos on 06-20-2022 Hemoglobin (Bld) [Mass/Vol] 14.6 g/dL 13.0-16.5 [facility] Blood lymphocytes/100 leukoc ytesOrdered By: Renard Burgos on 06-20-2022 Lymphocytes/100 WBC (Bld) 17.8 % 19-41 [facility] Blood monocytes/100 leukocyt esOrdered By: Renard Burgos on 06-20-2022 Monocytes/100 WBC (Bld) 7.0 % 0-10 [facility] Blood platelet mean volumeOr dered By: Renard Burgos on 06-20-2022 Platelet mean volume (Bld) [Entitic vol] 11.1 fL 6.2-12.0 [facility] Determination of erythrocyte mean corpuscular volume (MCV)Ordered By: Renard Burgos on 06-20-2022 MCV (RBC) [Entitic vol] 92.1 fL 80-94 [facility] Hematocrit Auto (Bld) [Volum e fraction]Ordered By: Renard Burgos on 06-20-2022 Hematocrit (Bld) [Volume fraction] 44.1 % 40-54 [facility] Laboratory - Hematology and Cell countsOrdered By: Renard Burgos on 06-20-2022 Erythrocyte distribution width (RBC) [Entitic vol] 42.4 fL 35.1-43.9 [facility] Erythrocyte distribution width (RBC) [Ratio] 12.6 % 11.6-14.6 [facility] Immature granulocytes/100 WBC (Bld) 0.300 % 0.0-0.9 [facility] Comment on above: IG% - Immature Granu locytes (promyelocytes, myelocytes and metamyelocytes) > 1% indicates that a LEFT SHIFT is Present. MCH (RBC) [Entitic mass] 30.5 pg 27.0-32.0 [facility] Nucleated RBC/100 WBC (Bld) [Ratio] 0 % 0-5 [facility] MCHC Auto (RBC) [Mass/Vol]Or dered By: Renard Burgos on 06-20-2022 MCHC (RBC) [Mass/Vol] 33.1 g/dL 32-36 [facility] Platelets bldOrdered By: Lyubov Burgos on 06-20-2022 Platelets (Bld) [#/Vol] 207 10*3/uL 150-450 [facility] Absolute lymphocyte countOrd ered By: Renard Burgos on 06-13-2022 Lymphocytes Auto (Unsp spec) [#/Vol] 2.28 10*3/uL 0.83-4.51 [facility] Basophil percentageOrdered B y: Renard Burgos on 06-13-2022 Basophils/100 WBC (Bld) 0.5 % 0-1 [facility] Eosinophils/100 WBC (Bld) 0.4 % 0-5 [facility] Neutrophils (Bld) [#/Vol] 6.0 10*3/uL 2.0-7.7 [facility] Neutrophils/100 WBC (Bld) 65.6 % 47-70 [facility] WBC (Bld) [#/Vol] 9.2 10*3/uL 4.4-11.0 [facility] Blood erythrocytes count (nu mber/volume)Ordered By: Renard Burgos on 06-13-2022 RBC (Bld) [#/Vol] 4.55 10*6/uL 4.6-6.2 [facility] Blood hemoglobin measurement (mass/volume)Ordered By: Renard Burgos on 06-13-2022 Hemoglobin (Bld) [Mass/Vol] 13.7 g/dL 13.0-16.5 [facility] Blood lymphocytes/100 leukoc ytesOrdered By: Renard Burgos on 06-13-2022 Lymphocytes/100 WBC (Bld) 24.9 % 19-41 [facility] Blood monocytes/100 leukocyt esOrdered By: Renard Burgos on 06-13-2022 Monocytes/100 WBC (Bld) 8.2 % 0-10 [facility] Blood platelet mean volumeOr dered By: Renard Burgos on 06-13-2022 Platelet mean volume (Bld) [Entitic vol] 10.9 fL 6.2-12.0 [facility] Determination of erythrocyte mean corpuscular volume (MCV)Ordered By: Renard Burgos on 06-13-2022 MCV (RBC) [Entitic vol] 92.3 fL 80-94 [facility] Hematocrit Auto (Bld) [Volum e fraction]Ordered By: Renard Burgos on 06-13-2022 Hematocrit (Bld) [Volume fraction] 42.0 % 40-54 [facility] Laboratory - Hematology and Cell countsOrdered By: Renard Burgos on 06-13-2022 Erythrocyte distribution width (RBC) [Entitic vol] 43.2 fL 35.1-43.9 [facility] Erythrocyte distribution width (RBC) [Ratio] 12.8 % 11.6-14.6 [facility] Immature granulocytes/100 WBC (Bld) 0.400 % 0.0-0.9 [facility] Comment on above: IG% - Immature Granu locytes (promyelocytes, myelocytes and metamyelocytes) > 1% indicates that a LEFT SHIFT is Present. MCH (RBC) [Entitic mass] 30.1 pg 27.0-32.0 [facility] Nucleated RBC/100 WBC (Bld) [Ratio] 0 % 0-5 [facility] MCHC Auto (RBC) [Mass/Vol]Or dered By: Renard Burgos on 06-13-2022 MCHC (RBC) [Mass/Vol] 32.6 g/dL 32-36 [facility] Platelets bldOrdered By: Lyubov Burgos on 06-13-2022 Platelets (Bld) [#/Vol] 203 10*3/uL 150-450 [facility] Absolute lymphocyte countOrd ered By: Renard Burgos on 06-06-2022 Lymphocytes Auto (Unsp spec) [#/Vol] 2.02 10*3/uL 0.83-4.51 [facility] Basophil percentageOrdered B y: Renard Burgos on 06-06-2022 Basophils/100 WBC (Bld) 0.5 % 0-1 [facility] Eosinophils/100 WBC (Bld) 0.7 % 0-5 [facility] Neutrophils (Bld) [#/Vol] 4.7 10*3/uL 2.0-7.7 [facility] Neutrophils/100 WBC (Bld) 63.3 % 47-70 [facility] WBC (Bld) [#/Vol] 7.4 10*3/uL 4.4-11.0 [facility] Blood erythrocytes count (nu mber/volume)Ordered By: Renard Bugros on 06-06-2022 RBC (Bld) [#/Vol] 4.57 10*6/uL 4.6-6.2 [facility] Blood hemoglobin measurement (mass/volume)Ordered By: Renard Burgos on 06-06-2022 Hemoglobin (Bld) [Mass/Vol] 14.0 g/dL 13.0-16.5 [facility] Blood lymphocytes/100 leukoc ytesOrdered By: Renard Burgos on 06-06-2022 Lymphocytes/100 WBC (Bld) 27.2 % 19-41 [facility] Blood monocytes/100 leukocyt esOrdered By: Renard Burgos on 06-06-2022 Monocytes/100 WBC (Bld) 7.9 % 0-10 [facility] Blood platelet mean volumeOr dered By: Renard Burgos on 06-06-2022 Platelet mean volume (Bld) [Entitic vol] 10.7 fL 6.2-12.0 [facility] Determination of erythrocyte mean corpuscular volume (MCV)Ordered By: Renard Burgos on 06-06-2022 MCV (RBC) [Entitic vol] 90.2 fL 80-94 [facility] Hematocrit Auto (Bld) [Volum e fraction]Ordered By: Renard Burgos on 06-06-2022 Hematocrit (Bld) [Volume fraction] 41.2 % 40-54 [facility] Laboratory - Hematology and Cell countsOrdered By: Renard Burgos on 06-06-2022 Erythrocyte distribution width (RBC) [Entitic vol] 41.5 fL 35.1-43.9 [facility] Erythrocyte distribution width (RBC) [Ratio] 12.7 % 11.6-14.6 [facility] Immature granulocytes/100 WBC (Bld) 0.400 % 0.0-0.9 [facility] Comment on above: IG% - Immature Granu locytes (promyelocytes, myelocytes and metamyelocytes) > 1% indicates that a LEFT SHIFT is Present. MCH (RBC) [Entitic mass] 30.6 pg 27.0-32.0 [facility] Nucleated RBC/100 WBC (Bld) [Ratio] 0 % 0-5 [facility] MCHC Auto (RBC) [Mass/Vol]Or dered By: Renard Burgos on 06-06-2022 MCHC (RBC) [Mass/Vol] 34.0 g/dL 32-36 [facility] Platelets bldOrdered By: Lyubov Burgos on 06-06-2022 Platelets (Bld) [#/Vol] 197 10*3/uL 150-450 [facility] Absolute lymphocyte countOrd ered By: Renard Burgos on 05-30-2022 Lymphocytes Auto (Unsp spec) [#/Vol] 2.32 10*3/uL 0.83-4.51 [facility] Basophil percentageOrdered B y: Renard Burgos on 05-30-2022 Basophils/100 WBC (Bld) 0.4 % 0-1 [facility] Eosinophils/100 WBC (Bld) 0.5 % 0-5 [facility] Neutrophils (Bld) [#/Vol] 5.2 10*3/uL 2.0-7.7 [facility] Neutrophils/100 WBC (Bld) 62.6 % 47-70 [facility] WBC (Bld) [#/Vol] 8.3 10*3/uL 4.4-11.0 [facility] Blood erythrocytes count (nu mber/volume)Ordered By: Renard Burgos on 05-30-2022 RBC (Bld) [#/Vol] 4.87 10*6/uL 4.6-6.2 [facility] Blood hemoglobin measurement (mass/volume)Ordered By: Renard Burgos on 05-30-2022 Hemoglobin (Bld) [Mass/Vol] 14.6 g/dL 13.0-16.5 [facility] Blood lymphocytes/100 leukoc ytesOrdered By: Renard Burgos on 05-30-2022 Lymphocytes/100 WBC (Bld) 27.9 % 19-41 [facility] Blood monocytes/100 leukocyt esOrdered By: Renard Burgos on 05-30-2022 Monocytes/100 WBC (Bld) 8.0 % 0-10 [facility] Blood platelet mean volumeOr dered By: Renard Burgos on 05-30-2022 Platelet mean volume (Bld) [Entitic vol] 10.9 fL 6.2-12.0 [facility] Determination of erythrocyte mean corpuscular volume (MCV)Ordered By: Renadr Burgos on 05-30-2022 MCV (RBC) [Entitic vol] 91.6 fL 80-94 [facility] Hematocrit Auto (Bld) [Volum e fraction]Ordered By: Renard Burgos on 05-30-2022 Hematocrit (Bld) [Volume fraction] 44.6 % 40-54 [facility] Laboratory - Hematology and Cell countsOrdered By: Renard Burgos on 05-30-2022 Erythrocyte distribution width (RBC) [Entitic vol] 42.4 fL 35.1-43.9 [facility] Erythrocyte distribution width (RBC) [Ratio] 12.6 % 11.6-14.6 [facility] Immature granulocytes/100 WBC (Bld) 0.600 % 0.0-0.9 [facility] Comment on above: IG% - Immature Granu locytes (promyelocytes, myelocytes and metamyelocytes) > 1% indicates that a LEFT SHIFT is Present. MCH (RBC) [Entitic mass] 30.0 pg 27.0-32.0 [facility] Nucleated RBC/100 WBC (Bld) [Ratio] 0 % 0-5 [facility] MCHC Auto (RBC) [Mass/Vol]Or dered By: Renard Burgos on 05-30-2022 MCHC (RBC) [Mass/Vol] 32.7 g/dL 32-36 [facility] Platelets bldOrdered By: Lyubov Burgos on 05-30-2022 Platelets (Bld) [#/Vol] 213 10*3/uL 150-450 [facility] Absolute lymphocyte countOrd ered By: Renard Burgos on 05-23-2022 Lymphocytes Auto (Unsp spec) [#/Vol] 2.07 10*3/uL 0.83-4.51 [facility] Basophil percentageOrdered B y: Renard Burgos on 05-23-2022 Basophils/100 WBC (Bld) 0.5 % 0-1 [facility] Eosinophils/100 WBC (Bld) 0.4 % 0-5 [facility] Neutrophils (Bld) [#/Vol] 5.7 10*3/uL 2.0-7.7 [facility] Neutrophils/100 WBC (Bld) 66.5 % 47-70 [facility] WBC (Bld) [#/Vol] 8.5 10*3/uL 4.4-11.0 [facility] Blood erythrocytes count (nu mber/volume)Ordered By: Renard Burgos on 05-23-2022 RBC (Bld) [#/Vol] 4.75 10*6/uL 4.6-6.2 [facility] Blood hemoglobin measurement (mass/volume)Ordered By: Renard Burgos on 05-23-2022 Hemoglobin (Bld) [Mass/Vol] 14.3 g/dL 13.0-16.5 [facility] Blood lymphocytes/100 leukoc ytesOrdered By: Renard Burgos on 05-23-2022 Lymphocytes/100 WBC (Bld) 24.4 % 19-41 [facility] Blood monocytes/100 leukocyt esOrdered By: Renard Burgos on 05-23-2022 Monocytes/100 WBC (Bld) 7.7 % 0-10 [facility] Blood platelet mean volumeOr dered By: Renard Burgos on 05-23-2022 Platelet mean volume (Bld) [Entitic vol] 11.1 fL 6.2-12.0 [facility] Determination of erythrocyte mean corpuscular volume (MCV)Ordered By: Renard Burgos on 05-23-2022 MCV (RBC) [Entitic vol] 90.9 fL 80-94 [facility] Hematocrit Auto (Bld) [Volum e fraction]Ordered By: Renard Burgos on 05-23-2022 Hematocrit (Bld) [Volume fraction] 43.2 % 40-54 [facility] - Hematology and Cell countsOrdered By: Renard Burgos on 05-23-2022 Erythrocyte distribution width (RBC) [Entitic vol] 41.7 fL 35.1-43.9 [facility] Erythrocyte distribution width (RBC) [Ratio] 12.5 % 11.6-14.6 [facility] Immature granulocytes/100 WBC (Bld) 0.500 % 0.0-0.9 [facility] Comment on above: IG% - Immature Granu locytes (promyelocytes, myelocytes and metamyelocytes) > 1% indicates that a LEFT SHIFT is Present. MCH (RBC) [Entitic mass] 30.1 pg 27.0-32.0 [facility] Nucleated RBC/100 WBC (Bld) [Ratio] 0 % 0-5 [facility] MCHC Auto (RBC) [Mass/Vol]Or dered By: Renard Burgos on 05-23-2022 MCHC (RBC) [Mass/Vol] 33.1 g/dL 32-36 [facility] Platelets bldOrdered By: Pet lizy Burgos on 05-23-2022 Platelets (Bld) [#/Vol] 213 10*3/uL 150-450 [facility] No Panel Informationon 05-20 Djeah Hazel DO 05/20/2022 7:32 PM Feeding Tube Replacement Performed by: Dejah Hazel DO Authorized by: Abelardo Rios DO Consent: Consent obtained: Verbal Consent given by: Patient [place] protocol: Patient identity confirmed: Verbally with patient [...] Procedure completion: Tolerated well, no immediate complications JANZZ XR Abdomen Single viewon G-tube position is within the stomach. No evidence of contrast extravasation. Report Dictated on Electronically Signed By: Jason Tran Electronically Signed Date/Time: 05/20/2022 7:38 PM EST [facility] Patient Name: KATHYA HOOPER Exam Date/Time: 05/20/2022 19:18 Procedure: XR ABDOMEN 1 VIEW Ordering Provider: RIOS TYLER Reason For Exam: SUPINE ABDOMEN (KUB) CLINICAL INDICATION: confirm placement of G tube A supine plain film of the abdomen was obtained. Repeat abdominal radiographs following hand injection of enteric contrast via the patient's enteric tube. (Gastrografin 30 mL). COMPARISON: None FINDINGS: On the engineer and geologist image, no dilated bowel loops are identified. Feeding tube overlies the epigastric region of the abdomen. On the postcontrast images, there is a small amount of enteric contrast in the stomach and contrast is present throughout the proximal duodenum. No extravasated contrast is evident. [facility] Jason Tran M D - 05/20/2022 [...] 30 mL). COMPARISON: None FINDINGS: On the engineer and geologist image, no dilated bowel loops are identified. [...] Electronically Signed Date/Time: 05/20/2022 7:38 PM EST [facility] Radiology Study observation (narrative) [facility] XR Abdomen Single viewOrdere d By: Jason Tran on 05-20-2022 [facility] [employer] Work Phone: Absolute lymphocyte countOrd ered By: Renard Burgos on 05-16-2022 Lymphocytes Auto (Unsp spec) [#/Vol] 2.06 10*3/uL 0.83-4.51 [facility] Basophil percentageOrdered B y: Renard Burgos on 05-16-2022 Basophils/100 WBC (Bld) 0.6 % 0-1 [facility] Eosinophils/100 WBC (Bld) 0.6 % 0-5 [facility] Neutrophils (Bld) [#/Vol] 4.4 10*3/uL 2.0-7.7 [facility] Neutrophils/100 WBC (Bld) 61.2 % 47-70 [facility] WBC (Bld) [#/Vol] 7.1 10*3/uL 4.4-11.0 [facility] Blood erythrocytes count (nu mber/volume)Ordered By: Renard Burgos on 05-16-2022 RBC (Bld) [#/Vol] 4.58 10*6/uL 4.6-6.2 [facility] [place] Blood hemoglobin measurement (mass/volume)Ordered By: Renard Burgos on 05-16-2022 Hemoglobin (Bld) [Mass/Vol] 13.9 g/dL 13.0-16.5 [facility] Blood lymphocytes/100 leukoc ytesOrdered By: Renard Burgos on 05-16-2022 Lymphocytes/100 WBC (Bld) 29.0 % 19-41 [facility] Blood monocytes/100 leukocyt esOrdered By: Renard Burgso on 05-16-2022 Monocytes/100 WBC (Bld) 8.2 % 0-10 [facility] Blood platelet mean volumeOr dered By: Renard Burgos on 05-16-2022 Platelet mean volume (Bld) [Entitic vol] 11.1 fL 6.2-12.0 [facility] Determination of erythrocyte mean corpuscular volume (MCV)Ordered By: Renard Burgos on 05-16-2022 MCV (RBC) [Entitic vol] 91.5 fL 80-94 [facility] Hematocrit Auto (Bld) [Volum e fraction]Ordered By: Renard Burgos on 05-16-2022 Hematocrit (Bld) [Volume fraction] 41.9 % 40-54 [facility] Laboratory - Hematology and Cell countsOrdered By: Renard Burgos on 05-16-2022 Erythrocyte distribution width (RBC) [Entitic vol] 41.3 fL 35.1-43.9 [facility] Erythrocyte distribution width (RBC) [Ratio] 12.5 % 11.6-14.6 [facility] Immature granulocytes/100 WBC (Bld) 0.400 % 0.0-0.9 [facility] Comment on above: IG% - Immature Granu locytes (promyelocytes, myelocytes and metamyelocytes) > 1% indicates that a LEFT SHIFT is Present. MCH (RBC) [Entitic mass] 30.3 pg 27.0-32.0 [facility] Nucleated RBC/100 WBC (Bld) [Ratio] 0 % 0-5 [facility] MCHC Auto (RBC) [Mass/Vol]Or dered By: Renard Burgos on 05-16-2022 MCHC (RBC) [Mass/Vol] 33.2 g/dL 32-36 [facility] Platelets bldOrdered By: Lyubov lizy Loretta on 05-16-2022 Platelets (Bld) [#/Vol] 205 10*3/uL 150-450 [facility] Absolute lymphocyte countOrd ered By: Renard Burgos on 05-09-2022 Lymphocytes Auto (Unsp spec) [#/Vol] 1.92 10*3/uL 0.83-4.51 [facility] Basophil percentageOrdered B y: Renard Burgos on 05-09-2022 Basophils/100 WBC (Bld) 0.7 % 0-1 [facility] Eosinophils/100 WBC (Bld) 0.7 % 0-5 [facility] Neutrophils (Bld) [#/Vol] 4.3 10*3/uL 2.0-7.7 [facility] Neutrophils/100 WBC (Bld) 60.9 % 47-70 [facility] WBC (Bld) [#/Vol] 7.1 10*3/uL 4.4-11.0 [facility] Blood erythrocytes count (nu mber/volume)Ordered By: Renard Burgos on 05-09-2022 RBC (Bld) [#/Vol] 4.67 10*6/uL 4.6-6.2 [facility] Blood hemoglobin measurement (mass/volume)Ordered By: Renard Burgos on 05-09-2022 Hemoglobin (Bld) [Mass/Vol] 14.1 g/dL 13.0-16.5 [facility] Blood lymphocytes/100 leukoc ytesOrdered By: Renard Burgos on 05-09-2022 Lymphocytes/100 WBC (Bld) 27.2 % 19-41 [facility] Blood monocytes/100 leukocyt esOrdered By: Renard Burgos on 05-09-2022 Monocytes/100 WBC (Bld) 10.2 % 0-10 [facility] Blood platelet mean volumeOr dered By: Renard Burgos on 05-09-2022 Platelet mean volume (Bld) [Entitic vol] 11.5 fL 6.2-12.0 [facility] Determination of erythrocyte mean corpuscular volume (MCV)Ordered By: Renard Burgos on 05-09-2022 MCV (RBC) [Entitic vol] 91.0 fL 80-94 [facility] Hematocrit Auto (Bld) [Volum e fraction]Ordered By: Renard Burgos on 05-09-2022 Hematocrit (Bld) [Volume fraction] 42.5 % 40-54 [facility] Laboratory - Hematology and Cell countsOrdered By: Renard Burgos on 05-09-2022 Erythrocyte distribution width (RBC) [Entitic vol] 41.4 fL 35.1-43.9 [facility] Erythrocyte distribution width (RBC) [Ratio] 12.7 % 11.6-14.6 [facility] Immature granulocytes/100 WBC (Bld) 0.300 % 0.0-0.9 [facility] Comment on above: IG% - Immature Granu locytes (promyelocytes, myelocytes and metamyelocytes) > 1% indicates that a LEFT SHIFT is Present. MCH (RBC) [Entitic mass] 30.2 pg 27.0-32.0 [facility] Nucleated RBC/100 WBC (Bld) [Ratio] 0.4 % 0-5 [facility] MCHC Auto (RBC) [Mass/Vol]Or dered By: Renard Burgos on 05-09-2022 MCHC (RBC) [Mass/Vol] 33.2 g/dL 32-36 [facility] Platelets bldOrdered By: Lyubov Burgos on 05-09-2022 Platelets (Bld) [#/Vol] 202 10*3/uL 150-450 [facility] Absolute lymphocyte countOrd ered By: Renard Burgos on 05-03-2022 Lymphocytes Auto (Unsp spec) [#/Vol] 1.86 10*3/uL 0.83-4.51 [facility] Basophil percentageOrdered B y: Renard Burgos on 05-03-2022 Basophils/100 WBC (Bld) 0.3 % 0-1 [facility] Eosinophils/100 WBC (Bld) 0.3 % 0-5 [facility] Neutrophils (Bld) [#/Vol] 6.4 10*3/uL 2.0-7.7 [facility] Neutrophils/100 WBC (Bld) 71.9 % 47-70 [facility] WBC (Bld) [#/Vol] 8.9 10*3/uL 4.4-11.0 [facility] Blood erythrocytes count (nu mber/volume)Ordered By: Renard Burgos on 05-03-2022 RBC (Bld) [#/Vol] 4.65 10*6/uL 4.6-6.2 [facility] Blood hemoglobin measurement (mass/volume)Ordered By: Renard Burgos on 05-03-2022 Hemoglobin (Bld) [Mass/Vol] 14.5 g/dL 13.0-16.5 [facility] Blood lymphocytes/100 leukoc ytesOrdered By: Renard Burgos on 05-03-2022 Lymphocytes/100 WBC (Bld) 20.9 % 19-41 [facility] Blood monocytes/100 leukocyt esOrdered By: Renard Burgos on 05-03-2022 Monocytes/100 WBC (Bld) 6.2 % 0-10 [facility] Blood platelet mean volumeOr dered By: Renard Burgos on 05-03-2022 Platelet mean volume (Bld) [Entitic vol] 11.1 fL 6.2-12.0 [facility] Determination of erythrocyte mean corpuscular volume (MCV)Ordered By: Renard Burgos on 05-03-2022 MCV (RBC) [Entitic vol] 90.1 fL 80-94 [facility] Hematocrit Auto (Bld) [Volum e fraction]Ordered By: Renard Burgos on 05-03-2022 Hematocrit (Bld) [Volume fraction] 41.9 % 40-54 [facility] Laboratory - Hematology and Cell countsOrdered By: Renard Burgos on 05-03-2022 Erythrocyte distribution width (RBC) [Entitic vol] 39.7 fL 35.1-43.9 [facility] Erythrocyte distribution width (RBC) [Ratio] 12.2 % 11.6-14.6 [facility] Immature granulocytes/100 WBC (Bld) 0.400 % 0.0-0.9 [facility] Comment on above: IG% - Immature Granu locytes (promyelocytes, myelocytes and metamyelocytes) > 1% indicates that a LEFT SHIFT is Present. MCH (RBC) [Entitic mass] 31.2 pg 27.0-32.0 [facility] Nucleated RBC/100 WBC (Bld) [Ratio] 0 % 0-5 [facility] MCHC Auto (RBC) [Mass/Vol]Or dered By: Renard Burgos on 05-03-2022 MCHC (RBC) [Mass/Vol] 34.6 g/dL 32-36 [facility] Platelets bldOrdered By: Lyubov Burgos on 05-03-2022 Platelets (Bld) [#/Vol] 203 10*3/uL 150-450 [facility] Absolute lymphocyte countOrd ered By: Renard Burgos on 04-26-2022 Lymphocytes Auto (Unsp spec) [#/Vol] 2.79 10*3/uL 0.83-4.51 [facility] Basophil percentageOrdered B y: Renard Burgos on 04-26-2022 Basophils/100 WBC (Bld) 0.4 % 0-1 [facility] Eosinophils/100 WBC (Bld) 0.4 % 0-5 [facility] Neutrophils (Bld) [#/Vol] 5.9 10*3/uL 2.0-7.7 [facility] Neutrophils/100 WBC (Bld) 60.9 % 47-70 [facility] WBC (Bld) [#/Vol] 9.7 10*3/uL 4.4-11.0 [facility] Blood erythrocytes count (nu mber/volume)Ordered By: Renard Burgos on 04-26-2022 RBC (Bld) [#/Vol] 4.92 10*6/uL 4.6-6.2 [facility] Blood hemoglobin measurement (mass/volume)Ordered By: Renard Burgos on 04-26-2022 Hemoglobin (Bld) [Mass/Vol] 15.2 g/dL 13.0-16.5 [facility] Blood lymphocytes/100 leukoc ytesOrdered By: Renard Burgos on 04-26-2022 Lymphocytes/100 WBC (Bld) 28.9 % 19-41 [facility] Blood monocytes/100 leukocyt esOrdered By: Renard Burgos on 04-26-2022 Monocytes/100 WBC (Bld) 9.0 % 0-10 [facility] Blood platelet mean volumeOr dered By: Renard Burgos on 04-26-2022 Platelet mean volume (Bld) [Entitic vol] 11.0 fL 6.2-12.0 [facility] Determination of erythrocyte mean corpuscular volume (MCV)Ordered By: Renard Burgos on 04-26-2022 MCV (RBC) [Entitic vol] 92.3 fL 80-94 [facility] Hematocrit Auto (Bld) [Volum e fraction]Ordered By: Renard Burgos on 04-26-2022 Hematocrit (Bld) [Volume fraction] 45.4 % 40-54 [facility] Laboratory - Hematology and Cell countsOrdered By: Renard Burgos on 04-26-2022 Erythrocyte distribution width (RBC) [Entitic vol] 42.1 fL 35.1-43.9 [facility] Erythrocyte distribution width (RBC) [Ratio] 12.5 % 11.6-14.6 [facility] Immature granulocytes/100 WBC (Bld) 0.400 % 0.0-0.9 [facility] Comment on above: IG% - Immature Granu locytes (promyelocytes, myelocytes and metamyelocytes) > 1% indicates that a LEFT SHIFT is Present. MCH (RBC) [Entitic mass] 30.9 pg 27.0-32.0 [facility] Nucleated RBC/100 WBC (Bld) [Ratio] 0 % 0-5 [facility] MCHC Auto (RBC) [Mass/Vol]Or dered By: Renard Burgos on 04-26-2022 MCHC (RBC) [Mass/Vol] 33.5 g/dL 32-36 [facility] Platelets bldOrdered By: Lyubov Burgos on 04-26-2022 Platelets (Bld) [#/Vol] 178 10*3/uL 150-450 [facility] Absolute lymphocyte countOrd ered By: Renard Burgos on 04-18-2022 Lymphocytes Auto (Unsp spec) [#/Vol] 2.03 10*3/uL 0.83-4.51 [facility] Basophil percentageOrdered B y: Renard Burgos on 04-18-2022 Basophils/100 WBC (Bld) 0.6 % 0-1 [facility] Eosinophils/100 WBC (Bld) 0.6 % 0-5 [facility] Neutrophils (Bld) [#/Vol] 4.5 10*3/uL 2.0-7.7 [facility] Neutrophils/100 WBC (Bld) 62.0 % 47-70 [facility] WBC (Bld) [#/Vol] 7.2 10*3/uL 4.4-11.0 [facility] Blood erythrocytes count (nu mber/volume)Ordered By: Renard Burgos on 04-18-2022 RBC (Bld) [#/Vol] 4.67 10*6/uL 4.6-6.2 [facility] Blood hemoglobin measurement (mass/volume)Ordered By: Renard Burgso on 04-18-2022 Hemoglobin (Bld) [Mass/Vol] 14.5 g/dL 13.0-16.5 [facility] Blood lymphocytes/100 leukoc ytesOrdered By: Renard Burgos on 04-18-2022 Lymphocytes/100 WBC (Bld) 28.2 % 19-41 [facility] Blood monocytes/100 leukocyt esOrdered By: Renard Burgos on 04-18-2022 Monocytes/100 WBC (Bld) 8.2 % 0-10 [facility] Blood platelet mean volumeOr dered By: Renard Burgos on 04-18-2022 Platelet mean volume (Bld) [Entitic vol] 11.2 fL 6.2-12.0 [facility] Determination of erythrocyte mean corpuscular volume (MCV)Ordered By: Renard Burgos on 04-18-2022 MCV (RBC) [Entitic vol] 90.8 fL 80-94 [facility] Hematocrit Auto (Bld) [Volum e fraction]Ordered By: Renard Burgos on 04-18-2022 Hematocrit (Bld) [Volume fraction] 42.4 % 40-54 [facility] Laboratory - Hematology and Cell countsOrdered By: Renard Burgos on 04-18-2022 Erythrocyte distribution width (RBC) [Entitic vol] 41.1 fL 35.1-43.9 [facility] Erythrocyte distribution width (RBC) [Ratio] 12.5 % 11.6-14.6 [facility] Immature granulocytes/100 WBC (Bld) 0.400 % 0.0-0.9 [facility] Comment on above: IG% - Immature Granu locytes (promyelocytes, myelocytes and metamyelocytes) > 1% indicates that a LEFT SHIFT is Present. MCH (RBC) [Entitic mass] 31.0 pg 27.0-32.0 [facility] Nucleated RBC/100 WBC (Bld) [Ratio] 0 % 0-5 [facility] MCHC Auto (RBC) [Mass/Vol]Or dered By: Renard Burgos on 04-18-2022 MCHC (RBC) [Mass/Vol] 34.2 g/dL 32-36 [facility] Platelets bldOrdered By: Lyubov Burgos on 04-18-2022 Platelets (Bld) [#/Vol] 196 10*3/uL 150-450 [facility] Basophil percentageOrdered B y: Renard Burgos on 04-14-2022 Bilirubin [Mass/Vol] 0.40 mg/dL 0.20-1.00 [facility] Comment on above: For patients on eltr ombopag therapy, use of Dimension [place] TBIL is not recommended. Protein [Mass/Vol] 6.3 g/dL 6.4-8.2 [facility] Direct bilirubinOrdered By: Renard Burgos on 04-14-2022 Bilirubin.direct [Mass/Vol] 0.12 mg/dL 0.00-0.30 [facility] Laboratory - Chemistry and C hemistry - challengeOrdered By: Renard Burgos on 04-14-2022 ALP [Catalytic activity/Vol] 117 U/L 45-117 [facility] ALT [Catalytic activity/Vol] 26 U/L 16-61 [facility] Globulin (S) [Mass/Vol] 3.2 g/dL 2.2-4.2 [facility] Serum or plasma albumin gordy urement (mass/volume)Ordered By: Renard Burgos on 04-14-2022 Albumin [Mass/Vol] 3.1 g/dL 3.2-5.0 [facility] Thin prep Papanicolaou smear with manual screeningOrdered By: Renard Burgos on 04-14-2022 Thin prep Papanicolaou smear with manual screening 12 U/L 15-37 [facility] Absolute lymphocyte countOrd ered By: Renard Burgos on 04-11-2022 Lymphocytes Auto (Unsp spec) [#/Vol] 2.16 10*3/uL 0.83-4.51 [facility] Basophil percentageOrdered B y: Renard Burgos on 04-11-2022 Basophils/100 WBC (Bld) 0.4 % 0-1 [facility] Eosinophils/100 WBC (Bld) 0.4 % 0-5 [facility] Neutrophils (Bld) [#/Vol] 4.2 10*3/uL 2.0-7.7 [facility] Neutrophils/100 WBC (Bld) 61.1 % 47-70 [facility] WBC (Bld) [#/Vol] 6.9 10*3/uL 4.4-11.0 [facility] Blood erythrocytes count (nu mber/volume)Ordered By: Renard Burgos on 04-11-2022 RBC (Bld) [#/Vol] 4.58 10*6/uL 4.6-6.2 [facility] Blood hemoglobin measurement (mass/volume)Ordered By: Renard Burgos on 04-11-2022 Hemoglobin (Bld) [Mass/Vol] 13.9 g/dL 13.0-16.5 [facility] Blood lymphocytes/100 leukoc ytesOrdered By: Renard Burgos on 04-11-2022 Lymphocytes/100 WBC (Bld) 31.2 % 19-41 [facility] Blood monocytes/100 leukocyt esOrdered By: Renard Burgos on 04-11-2022 Monocytes/100 WBC (Bld) 6.5 % 0-10 [facility] Blood platelet mean volumeOr dered By: Renard Burgos on 04-11-2022 Platelet mean volume (Bld) [Entitic vol] 11.4 fL 6.2-12.0 [facility] Determination of erythrocyte mean corpuscular volume (MCV)Ordered By: Renard Burgos on 04-11-2022 MCV (RBC) [Entitic vol] 91.9 fL 80-94 [facility] Hematocrit Auto (Bld) [Volum e fraction]Ordered By: Renard Burgos on 04-11-2022 Hematocrit (Bld) [Volume fraction] 42.1 % 40-54 [facility] Laboratory - Hematology and Cell countsOrdered By: Renard Burgos on 04-11-2022 Erythrocyte distribution width (RBC) [Entitic vol] 41.5 fL 35.1-43.9 [facility] Erythrocyte distribution width (RBC) [Ratio] 12.3 % 11.6-14.6 [facility] Immature granulocytes/100 WBC (Bld) 0.400 % 0.0-0.9 [facility] Comment on above: IG% - Immature Granu locytes (promyelocytes, myelocytes and metamyelocytes) > 1% indicates that a LEFT SHIFT is Present. MCH (RBC) [Entitic mass] 30.3 pg 27.0-32.0 [facility] Nucleated RBC/100 WBC (Bld) [Ratio] 0 % 0-5 [facility] MCHC Auto (RBC) [Mass/Vol]Or dered By: Renard Burgos on 04-11-2022 MCHC (RBC) [Mass/Vol] 33.0 g/dL 32-36 [facility] Platelets bldOrdered By: Lyubov Burgos on 04-11-2022 Platelets (Bld) [#/Vol] 191 10*3/uL 150-450 [facility] Absolute lymphocyte countOrd ered By: Renard Burgos on 04-04-2022 Lymphocytes Auto (Unsp spec) [#/Vol] 1.99 10*3/uL 0.83-4.51 [facility] Basophil percentageOrdered B y: Renard Burgos on 04-04-2022 Basophils/100 WBC (Bld) 0.4 % 0-1 [facility] Cholesterol [Mass/Vol] 158 mg/dL <[address] [facility] Comment on above: <200 mg/dL Desirable 200-240 mg/dL Borderline >240 mg/dL High Risk Eosinophils/100 WBC (Bld) 0.4 % 0-5 [facility] Neutrophils (Bld) [#/Vol] 4.9 10*3/uL 2.0-7.7 [facility] Neutrophils/100 WBC (Bld) 64.2 % 47-70 [facility] Triglyceride [Mass/Vol] 259 mg/dL <199 [facility] Comment on above: The drugs N-Acetylcy steine and Metamizole may falsely depress this assay.Serum Triglycerides Reference Interval Normal <150 mg/dL Borderline high 150 - 199 mg/dL High 200 - 499 mg/dL Very High > or = 500 mg/dL WBC (Bld) [#/Vol] 7.7 10*3/uL 4.4-11.0 [facility] Blood erythrocytes count (nu mber/volume)Ordered By: Renard Burgos on 04-04-2022 RBC (Bld) [#/Vol] 4.63 10*6/uL 4.6-6.2 [facility] Blood hemoglobin measurement (mass/volume)Ordered By: Renard Burgos on 04-04-2022 Hemoglobin (Bld) [Mass/Vol] 14.1 g/dL 13.0-16.5 [facility] Blood lymphocytes/100 leukoc ytesOrdered By: Renard Burgos on 04-04-2022 Lymphocytes/100 WBC (Bld) 25.9 % 19-41 [facility] Blood monocytes/100 leukocyt esOrdered By: Renard Burgos on 04-04-2022 Monocytes/100 WBC (Bld) 8.6 % 0-10 [facility] Blood platelet mean volumeOr dered By: Renard Burgos on 04-04-2022 Platelet mean volume (Bld) [Entitic vol] 11.3 fL 6.2-12.0 [facility] Determination of erythrocyte mean corpuscular volume (MCV)Ordered By: Renard Burgos on 04-04-2022 MCV (RBC) [Entitic vol] 90.7 fL 80-94 [facility] Hematocrit Auto (Bld) [Volum e fraction]Ordered By: Renard Burgos on 04-04-2022 Hematocrit (Bld) [Volume fraction] 42.0 % 40-54 [facility] Laboratory - Hematology and Cell countsOrdered By: Renard Burgos on 04-04-2022 Erythrocyte distribution width (RBC) [Entitic vol] 41.3 fL 35.1-43.9 [facility] Erythrocyte distribution width (RBC) [Ratio] 12.4 % 11.6-14.6 [facility] Immature granulocytes/100 WBC (Bld) 0.500 % 0.0-0.9 [facility] Comment on above: IG% - Immature Granu locytes (promyelocytes, myelocytes and metamyelocytes) > 1% indicates that a LEFT SHIFT is Present. MCH (RBC) [Entitic mass] 30.5 pg 27.0-32.0 [facility] Nucleated RBC/100 WBC (Bld) [Ratio] 0 % 0-5 [facility] MCHC Auto (RBC) [Mass/Vol]Or dered By: Renard Burgos on 04-04-2022 MCHC (RBC) [Mass/Vol] 33.6 g/dL 32-36 [facility] Platelets bldOrdered By: Lyubov Burgos on 04-04-2022 Platelets (Bld) [#/Vol] 174 10*3/uL 150-450 [facility] Serum or plasma cholesterol in HDL measurement (mass/volume)Ordered By: Renard Burgos on 04-04-2022 Cholesterol in HDL [Mass/Vol] 26 mg/dL >40 [facility] Comment on above: The drugs N-Acetylcy steine and Metamizole may falsely depress this assay. Reference Range HDL <40 mg/dL Low HDL Cholesterol HDL >or= 60 mg/dL High HDL Cholesterol Serum or plasma cholesterol in VLDL measurement (mass/volume)Ordered By: Renard Burgos on 04-04-2022 Cholesterol in VLDL [Mass/Vol] 52 mg/dL 5-40 [facility] Serum or plasma low density lipoprotein (LDL) cholesterol measurement (mass/volume)Ordered By: Renard Burgos on 04-04-2022 Cholesterol in LDL [Mass/Vol] 80 mg/dL 0-130 [facility] Absolute lymphocyte countOrd ered By: Renard Burgos on 03-28-2022 Lymphocytes Auto (Unsp spec) [#/Vol] 2.25 10*3/uL 0.83-4.51 [facility] Basophil percentageOrdered B y: Rneard Burgos on 03-28-2022 Basophils/100 WBC (Bld) 0.6 % 0-1 [facility] Eosinophils/100 WBC (Bld) 0.5 % 0-5 [facility] Neutrophils (Bld) [#/Vol] 4.8 10*3/uL 2.0-7.7 [facility] Neutrophils/100 WBC (Bld) 60.5 % 47-70 [facility] WBC (Bld) [#/Vol] 8.0 10*3/uL 4.4-11.0 [facility] Blood erythrocytes count (nu mber/volume)Ordered By: Renard Burgos on 03-28-2022 RBC (Bld) [#/Vol] 4.69 10*6/uL 4.6-6.2 [facility] Blood hemoglobin measurement (mass/volume)Ordered By: Renard Burgos on 03-28-2022 Hemoglobin (Bld) [Mass/Vol] 14.4 g/dL 13.0-16.5 [facility] Blood lymphocytes/100 leukoc ytesOrdered By: Renard Burgos on 03-28-2022 Lymphocytes/100 WBC (Bld) 28.1 % 19-41 [facility] Blood monocytes/100 leukocyt esOrdered By: Renard Burgos on 03-28-2022 Monocytes/100 WBC (Bld) 9.8 % 0-10 [facility] Blood platelet mean volumeOr dered By: Renard Burgos on 03-28-2022 Platelet mean volume (Bld) [Entitic vol] 10.8 fL 6.2-12.0 [facility] Determination of erythrocyte mean corpuscular volume (MCV)Ordered By: Renard Burgos on 03-28-2022 MCV (RBC) [Entitic vol] 92.1 fL 80-94 [facility] Hematocrit Auto (Bld) [Volum e fraction]Ordered By: Renard Burgos on 03-28-2022 Hematocrit (Bld) [Volume fraction] 43.2 % 40-54 [facility] Laboratory - Hematology and Cell countsOrdered By: Renard Burgos on 03-28-2022 Erythrocyte distribution width (RBC) [Entitic vol] 42.0 fL 35.1-43.9 [facility] Erythrocyte distribution width (RBC) [Ratio] 12.5 % 11.6-14.6 [facility] Immature granulocytes/100 WBC (Bld) 0.500 % 0.0-0.9 [facility] Comment on above: IG% - Immature Granu locytes (promyelocytes, myelocytes and metamyelocytes) > 1% indicates that a LEFT SHIFT is Present. MCH (RBC) [Entitic mass] 30.7 pg 27.0-32.0 [facility] Nucleated RBC/100 WBC (Bld) [Ratio] 0 % 0-5 [facility] MCHC Auto (RBC) [Mass/Vol]Or dered By: Renard Burgos on 03-28-2022 MCHC (RBC) [Mass/Vol] 33.3 g/dL 32-36 [facility] Platelets bldOrdered By: Lyubov Burgos on 03-28-2022 Platelets (Bld) [#/Vol] 207 10*3/uL 150-450 [facility] Absolute lymphocyte countOrd ered By: Renard Burgos on 03-21-2022 Lymphocytes Auto (Unsp spec) [#/Vol] 1.98 10*3/uL 0.83-4.51 [facility] Basophil percentageOrdered B y: Renard Burgos on 03-21-2022 Basophils/100 WBC (Bld) 0.5 % 0-1 [facility] Eosinophils/100 WBC (Bld) 0.5 % 0-5 [facility] Neutrophils (Bld) [#/Vol] 4.9 10*3/uL 2.0-7.7 [facility] Neutrophils/100 WBC (Bld) 63.6 % 47-70 [facility] WBC (Bld) [#/Vol] 7.7 10*3/uL 4.4-11.0 [facility] Blood erythrocytes count (nu mber/volume)Ordered By: Renard Burgos on 03-21-2022 RBC (Bld) [#/Vol] 4.82 10*6/uL 4.6-6.2 [facility] Blood hemoglobin measurement (mass/volume)Ordered By: Renard Burgos on 03-21-2022 Hemoglobin (Bld) [Mass/Vol] 14.9 g/dL 13.0-16.5 [facility] Blood lymphocytes/100 leukoc ytesOrdered By: Renard Burgos on 03-21-2022 Lymphocytes/100 WBC (Bld) 25.7 % 19-41 [facility] Blood monocytes/100 leukocyt esOrdered By: Renard Burgos on 03-21-2022 Monocytes/100 WBC (Bld) 9.3 % 0-10 [facility] Blood platelet mean volumeOr dered By: Renard Burgos on 03-21-2022 Platelet mean volume (Bld) [Entitic vol] 10.8 fL 6.2-12.0 [facility] Determination of erythrocyte mean corpuscular volume (MCV)Ordered By: Renard Burgos on 03-21-2022 MCV (RBC) [Entitic vol] 90.7 fL 80-94 [facility] Hematocrit Auto (Bld) [Volum e fraction]Ordered By: Renard Burgos on 03-21-2022 Hematocrit (Bld) [Volume fraction] 43.7 % 40-54 [facility] Laboratory - Hematology and Cell countsOrdered By: Renard Burgos on 03-21-2022 Erythrocyte distribution width (RBC) [Entitic vol] 40.8 fL 35.1-43.9 [facility] Erythrocyte distribution width (RBC) [Ratio] 12.4 % 11.6-14.6 [facility] Immature granulocytes/100 WBC (Bld) 0.400 % 0.0-0.9 [facility] Comment on above: IG% - Immature Granu locytes (promyelocytes, myelocytes and metamyelocytes) > 1% indicates that a LEFT SHIFT is Present. MCH (RBC) [Entitic mass] 30.9 pg 27.0-32.0 [facility] Nucleated RBC/100 WBC (Bld) [Ratio] 0 % 0-5 [facility] MCHC Auto (RBC) [Mass/Vol]Or dered By: Renard Burgos on 03-21-2022 MCHC (RBC) [Mass/Vol] 34.1 g/dL 32-36 [facility] Platelets bldOrdered By: Lyubov Burgos on 03-21-2022 Platelets (Bld) [#/Vol] 186 10*3/uL 150-450 [facility] Absolute lymphocyte countOrd ered By: Renard Burgos on 03-14-2022 Lymphocytes Auto (Unsp spec) [#/Vol] 2.18 10*3/uL 0.83-4.51 [facility] Basophil percentageOrdered B y: Renard Burgos on 03-14-2022 Basophils/100 WBC (Bld) 0.4 % 0-1 [facility] Eosinophils/100 WBC (Bld) 0.6 % 0-5 [facility] Neutrophils (Bld) [#/Vol] 4.3 10*3/uL 2.0-7.7 [facility] Neutrophils/100 WBC (Bld) 58.8 % 47-70 [facility] WBC (Bld) [#/Vol] 7.3 10*3/uL 4.4-11.0 [facility] Blood erythrocytes count (nu mber/volume)Ordered By: Renard Burgos on 03-14-2022 RBC (Bld) [#/Vol] 4.80 10*6/uL 4.6-6.2 [facility] Blood hemoglobin measurement (mass/volume)Ordered By: Renard Burgos on 03-14-2022 Hemoglobin (Bld) [Mass/Vol] 14.5 g/dL 13.0-16.5 [facility] Blood lymphocytes/100 leukoc ytesOrdered By: Renard Burgos on 03-14-2022 Lymphocytes/100 WBC (Bld) 30.1 % 19-41 [facility] Blood monocytes/100 leukocyt esOrdered By: Renard Burgos on 03-14-2022 Monocytes/100 WBC (Bld) 9.5 % 0-10 [facility] Blood platelet mean volumeOr dered By: Renard Burgos on 03-14-2022 Platelet mean volume (Bld) [Entitic vol] 11.0 fL 6.2-12.0 [facility] Determination of erythrocyte mean corpuscular volume (MCV)Ordered By: Renard Burgos on 03-14-2022 MCV (RBC) [Entitic vol] 91.5 fL 80-94 [facility] Hematocrit Auto (Bld) [Volum e fraction]Ordered By: Renard Burgos on 03-14-2022 Hematocrit (Bld) [Volume fraction] 43.9 % 40-54 [facility] Laboratory - Hematology and Cell countsOrdered By: Renard Burgos on 03-14-2022 Erythrocyte distribution width (RBC) [Entitic vol] 41.1 fL 35.1-43.9 [facility] Erythrocyte distribution width (RBC) [Ratio] 12.4 % 11.6-14.6 [facility] Immature granulocytes/100 WBC (Bld) 0.600 % 0.0-0.9 [facility] Comment on above: IG% - Immature Granu locytes (promyelocytes, myelocytes and metamyelocytes) > 1% indicates that a LEFT SHIFT is Present. MCH (RBC) [Entitic mass] 30.2 pg 27.0-32.0 [facility] Nucleated RBC/100 WBC (Bld) [Ratio] 0 % 0-5 [facility] MCHC Auto (RBC) [Mass/Vol]Or dered By: Renard Burgos on 03-14-2022 MCHC (RBC) [Mass/Vol] 33.0 g/dL 32-36 [facility] Platelets bldOrdered By: [facility] er Loretta on 03-14-2022 Platelets (Bld) [#/Vol] 201 10*3/uL 150-450 [facility] Absolute lymphocyte countOrd ered By: Renard Burgos on 2022 Lymphocytes Auto (Unsp spec) [#/Vol] 1.97 10*3/uL 0.83-4.51 [facility] Basophil percentageOrdered B y: Renard Burgos on 2022 Basophils/100 WBC (Bld) 0.6 % 0-1 [facility] Eosinophils/100 WBC (Bld) 0.4 % 0-5 [facility] Neutrophils (Bld) [#/Vol] 4.3 10*3/uL 2.0-7.7 [facility] Neutrophils/100 WBC (Bld) 61.3 % 47-70 [facility] WBC (Bld) [#/Vol] 7.0 10*3/uL 4.4-11.0 [facility] Blood erythrocytes count (nu mber/volume)Ordered By: Renard Burgos on 2022 RBC (Bld) [#/Vol] 4.78 10*6/uL 4.6-6.2 [facility] Blood hemoglobin measurement (mass/volume)Ordered By: Renard Burgos on 2022 Hemoglobin (Bld) [Mass/Vol] 14.4 g/dL 13.0-16.5 [facility] Blood lymphocytes/100 leukoc ytesOrdered By: Renard Burgos on 2022 Lymphocytes/100 WBC (Bld) 28.3 % 19-41 [facility] Blood monocytes/100 leukocyt esOrdered By: Renard Burgos on 2022 Monocytes/100 WBC (Bld) 9.1 % 0-10 [facility] Blood platelet mean volumeOr dered By: Renard Burgos on 2022 Platelet mean volume (Bld) [Entitic vol] 11.1 fL 6.2-12.0 [facility] Determination of erythrocyte mean corpuscular volume (MCV)Ordered By: Renard Burgos on 2022 MCV (RBC) [Entitic vol] 91.2 fL 80-94 [facility] Hematocrit Auto (Bld) [Volum e fraction]Ordered By: Renard Burgos on 2022 Hematocrit (Bld) [Volume fraction] 43.6 % 40-54 [facility] Laboratory - Hematology and Cell countsOrdered By: Renard Burgos on 2022 Erythrocyte distribution width (RBC) [Entitic vol] 42.0 fL 35.1-43.9 [facility] Erythrocyte distribution width (RBC) [Ratio] 12.6 % 11.6-14.6 [facility] Immature granulocytes/100 WBC (Bld) 0.300 % 0.0-0.9 [facility] Comment on above: IG% - Immature Granu locytes (promyelocytes, myelocytes and metamyelocytes) > 1% indicates that a LEFT SHIFT is Present. MCH (RBC) [Entitic mass] 30.1 pg 27.0-32.0 [facility] Nucleated RBC/100 WBC (Bld) [Ratio] 0 % 0-5 [facility] MCHC Auto (RBC) [Mass/Vol]Or dered By: Renard Burgos on 2022 MCHC (RBC) [Mass/Vol] 33.0 g/dL 32-36 [facility] Platelets bldOrdered By: Lyubov Burgos on 2022 Platelets (Bld) [#/Vol] 210 10*3/uL 150-450 [facility] Absolute lymphocyte countOrd ered By: Renard Burgos on 02-28-2022 Lymphocytes Auto (Unsp spec) [#/Vol] 1.85 10*3/uL 0.83-4.51 [facility] Basophil percentageOrdered B y: Renard Burgos on 02-28-2022 Basophils/100 WBC (Bld) 0.4 % 0-1 [facility] Eosinophils/100 WBC (Bld) 0.4 % 0-5 [facility] Neutrophils (Bld) [#/Vol] 5.3 10*3/uL 2.0-7.7 [facility] Neutrophils/100 WBC (Bld) 67.8 % 47-70 [facility] WBC (Bld) [#/Vol] 7.8 10*3/uL 4.4-11.0 [facility] Blood erythrocytes count (nu mber/volume)Ordered By: Renard Burgos on 02-28-2022 RBC (Bld) [#/Vol] 4.58 10*6/uL 4.6-6.2 [facility] Blood hemoglobin measurement (mass/volume)Ordered By: Renard Burgos on 02-28-2022 Hemoglobin (Bld) [Mass/Vol] 14.3 g/dL 13.0-16.5 [facility] Blood lymphocytes/100 leukoc ytesOrdered By: Renard Burgos on 02-28-2022 Lymphocytes/100 WBC (Bld) 23.8 % 19-41 [facility] Blood monocytes/100 leukocyt esOrdered By: Renard Burgos on 02-28-2022 Monocytes/100 WBC (Bld) 7.2 % 0-10 [facility] Blood platelet mean volumeOr dered By: Renard Burgos on 02-28-2022 Platelet mean volume (Bld) [Entitic vol] 10.8 fL 6.2-12.0 [facility] Determination of erythrocyte mean corpuscular volume (MCV)Ordered By: Renard Burgos on 02-28-2022 MCV (RBC) [Entitic vol] 91.5 fL 80-94 [facility] Hematocrit Auto (Bld) [Volum e fraction]Ordered By: Renard Burgos on 02-28-2022 Hematocrit (Bld) [Volume fraction] 41.9 % 40-54 [facility] Laboratory - Hematology and Cell countsOrdered By: Renard Burgos on 02-28-2022 Erythrocyte distribution width (RBC) [Entitic vol] 42.2 fL 35.1-43.9 [facility] Erythrocyte distribution width (RBC) [Ratio] 12.7 % 11.6-14.6 [facility] Immature granulocytes/100 WBC (Bld) 0.400 % 0.0-0.9 [facility] Comment on above: IG% - Immature Granu locytes (promyelocytes, myelocytes and metamyelocytes) > 1% indicates that a LEFT SHIFT is Present. MCH (RBC) [Entitic mass] 31.2 pg 27.0-32.0 [facility] Nucleated RBC/100 WBC (Bld) [Ratio] 0 % 0-5 [facility] MCHC Auto (RBC) [Mass/Vol]Or dered By: Renard Burgos on 02-28-2022 MCHC (RBC) [Mass/Vol] 34.1 g/dL 32-36 [facility] Platelets bldOrdered By: Lyubov Burgos on 02-28-2022 Platelets (Bld) [#/Vol] 202 10*3/uL 150-450 [facility] Absolute lymphocyte countOrd ered By: Renard Burgos on 02-21-2022 Lymphocytes Auto (Unsp spec) [#/Vol] 1.93 10*3/uL 0.83-4.51 [facility] Basophil percentageOrdered B y: Renard Burgos on 02-21-2022 Basophils/100 WBC (Bld) 0.4 % 0-1 [facility] Eosinophils/100 WBC (Bld) 0.4 % 0-5 [facility] Neutrophils (Bld) [#/Vol] 4.6 10*3/uL 2.0-7.7 [facility] Neutrophils/100 WBC (Bld) 63.4 % 47-70 [facility] WBC (Bld) [#/Vol] 7.2 10*3/uL 4.4-11.0 [facility] Blood erythrocytes count (nu mber/volume)Ordered By: Renard Burgos on 02-21-2022 RBC (Bld) [#/Vol] 4.54 10*6/uL 4.6-6.2 [facility] Blood hemoglobin measurement (mass/volume)Ordered By: Renard Burgos on 02-21-2022 Hemoglobin (Bld) [Mass/Vol] 14.1 g/dL 13.0-16.5 [facility] Blood lymphocytes/100 leukoc ytesOrdered By: Renard Burgos on 02-21-2022 Lymphocytes/100 WBC (Bld) 26.7 % 19-41 [facility] Blood monocytes/100 leukocyt esOrdered By: Renard Burgos on 02-21-2022 Monocytes/100 WBC (Bld) 8.8 % 0-10 [facility] Blood platelet mean volumeOr dered By: Renard Burgos on 02-21-2022 Platelet mean volume (Bld) [Entitic vol] 11.1 fL 6.2-12.0 [facility] Determination of erythrocyte mean corpuscular volume (MCV)Ordered By: Renard Burgos on 02-21-2022 MCV (RBC) [Entitic vol] 91.4 fL 80-94 [facility] Hematocrit Auto (Bld) [Volum e fraction]Ordered By: Renard Burgos on 02-21-2022 Hematocrit (Bld) [Volume fraction] 41.5 % 40-54 [facility] Laboratory - Hematology and Cell countsOrdered By: Renard Burgos on 02-21-2022 Erythrocyte distribution width (RBC) [Entitic vol] 41.9 fL 35.1-43.9 [facility] Erythrocyte distribution width (RBC) [Ratio] 12.6 % 11.6-14.6 [facility] Immature granulocytes/100 WBC (Bld) 0.300 % 0.0-0.9 [facility] Comment on above: IG% - Immature Granu locytes (promyelocytes, myelocytes and metamyelocytes) > 1% indicates that a LEFT SHIFT is Present. MCH (RBC) [Entitic mass] 31.1 pg 27.0-32.0 [facility] Nucleated RBC/100 WBC (Bld) [Ratio] 0 % 0-5 [facility] MCHC Auto (RBC) [Mass/Vol]Or dered By: Renard Burgos on 02-21-2022 MCHC (RBC) [Mass/Vol] 34.0 g/dL 32-36 [facility] Platelets bldOrdered By: Pet lizy Burgos on 02-21-2022 Platelets (Bld) [#/Vol] 189 10*3/uL 150-450 [facility] Absolute lymphocyte countOrd ered By: Renard Burgos on 02-14-2022 Lymphocytes Auto (Unsp spec) [#/Vol] 2.00 10*3/uL 0.83-4.51 [facility] Basophil percentageOrdered B y: Renard Burgos on 02-14-2022 Basophils/100 WBC (Bld) 0.6 % 0-1 [facility] Eosinophils/100 WBC (Bld) 0.3 % 0-5 [facility] Neutrophils (Bld) [#/Vol] 6.4 10*3/uL 2.0-7.7 [facility] Neutrophils/100 WBC (Bld) 69.5 % 47-70 [facility] WBC (Bld) [#/Vol] 9.3 10*3/uL 4.4-11.0 [facility] Blood erythrocytes count (nu mber/volume)Ordered By: Renard Burgos on 02-14-2022 RBC (Bld) [#/Vol] 4.65 10*6/uL 4.6-6.2 [facility] Blood hemoglobin measurement (mass/volume)Ordered By: Renard Burgos on 02-14-2022 Hemoglobin (Bld) [Mass/Vol] 14.6 g/dL 13.0-16.5 [facility] Blood lymphocytes/100 leukoc ytesOrdered By: Renard Burgos on 02-14-2022 Lymphocytes/100 WBC (Bld) 21.6 % 19-41 [facility] Blood monocytes/100 leukocyt esOrdered By: Renard Burgos on 02-14-2022 Monocytes/100 WBC (Bld) 7.6 % 0-10 [facility] Blood platelet mean volumeOr dered By: Renard Burgos on 02-14-2022 Platelet mean volume (Bld) [Entitic vol] 11.1 fL 6.2-12.0 [facility] Determination of erythrocyte mean corpuscular volume (MCV)Ordered By: Renard Burgos on 02-14-2022 MCV (RBC) [Entitic vol] 91.8 fL 80-94 [facility] Hematocrit Auto (Bld) [Volum e fraction]Ordered By: Renard Burgos on 02-14-2022 Hematocrit (Bld) [Volume fraction] 42.7 % 40-54 [facility] Laboratory - Hematology and Cell countsOrdered By: Renard Burgos on 02-14-2022 Erythrocyte distribution width (RBC) [Entitic vol] 43.7 fL 35.1-43.9 [facility] Erythrocyte distribution width (RBC) [Ratio] 13.0 % 11.6-14.6 [facility] Immature granulocytes/100 WBC (Bld) 0.400 % 0.0-0.9 [facility] Comment on above: IG% - Immature Granu locytes (promyelocytes, myelocytes and metamyelocytes) > 1% indicates that a LEFT SHIFT is Present. MCH (RBC) [Entitic mass] 31.4 pg 27.0-32.0 [facility] Nucleated RBC/100 WBC (Bld) [Ratio] 0 % 0-5 [facility] MCHC Auto (RBC) [Mass/Vol]Or dered By: Renard Burgos on 02-14-2022 MCHC (RBC) [Mass/Vol] 34.2 g/dL 32-36 [facility] Platelets bldOrdered By: Lyubov Burgos on 02-14-2022 Platelets (Bld) [#/Vol] 187 10*3/uL 150-450 [facility] Absolute lymphocyte countOrd ered By: Renard Burgos on 02-07-2022 Lymphocytes Auto (Unsp spec) [#/Vol] 1.97 10*3/uL 0.83-4.51 [facility] Basophil percentageOrdered B y: Renard Burgos on 02-07-2022 Basophils/100 WBC (Bld) 0.4 % 0-1 [facility] Eosinophils/100 WBC (Bld) 0.3 % 0-5 [facility] Neutrophils (Bld) [#/Vol] 4.2 10*3/uL 2.0-7.7 [facility] Neutrophils/100 WBC (Bld) 61.8 % 47-70 [facility] WBC (Bld) [#/Vol] 6.8 10*3/uL 4.4-11.0 [facility] Blood erythrocytes count (nu mber/volume)Ordered By: Renard Burgos on 02-07-2022 RBC (Bld) [#/Vol] 4.86 10*6/uL 4.6-6.2 [facility] Blood hemoglobin measurement (mass/volume)Ordered By: Renard Burgos on 02-07-2022 Hemoglobin (Bld) [Mass/Vol] 15.4 g/dL 13.0-16.5 [facility] Blood lymphocytes/100 leukoc ytesOrdered By: Renard Burgos on 02-07-2022 Lymphocytes/100 WBC (Bld) 29.1 % 19-41 [facility] Blood monocytes/100 leukocyt esOrdered By: Renard Burgos on 02-07-2022 Monocytes/100 WBC (Bld) 8.1 % 0-10 [facility] Blood platelet mean volumeOr dered By: Renard Burgos on 02-07-2022 Platelet mean volume (Bld) [Entitic vol] 11.0 fL 6.2-12.0 [facility] Determination of erythrocyte mean corpuscular volume (MCV)Ordered By: Renard Burgos on 02-07-2022 MCV (RBC) [Entitic vol] 92.6 fL 80-94 [facility] Hematocrit Auto (Bld) [Volum e fraction]Ordered By: Renard Burgos on 02-07-2022 Hematocrit (Bld) [Volume fraction] 45.0 % 40-54 [facility] Laboratory - Hematology and Cell countsOrdered By: Renard Burgos on 02-07-2022 Erythrocyte distribution width (RBC) [Entitic vol] 43.1 fL 35.1-43.9 [facility] Erythrocyte distribution width (RBC) [Ratio] 12.7 % 11.6-14.6 [facility] Immature granulocytes/100 WBC (Bld) 0.300 % 0.0-0.9 [facility] Comment on above: IG% - Immature Granu locytes (promyelocytes, myelocytes and metamyelocytes) > 1% indicates that a LEFT SHIFT is Present. MCH (RBC) [Entitic mass] 31.7 pg 27.0-32.0 [facility] Nucleated RBC/100 WBC (Bld) [Ratio] 0 % 0-5 [facility] MCHC Auto (RBC) [Mass/Vol]Or dered By: Renard Burgos on 02-07-2022 MCHC (RBC) [Mass/Vol] 34.2 g/dL 32-36 [facility] Platelets bldOrdered By: Lyubov lizy Loretta on 02-07-2022 Platelets (Bld) [#/Vol] 196 10*3/uL 150-450 [facility] Absolute lymphocyte countOrd ered By: Renard Burgos on 01-31-2022 Lymphocytes Auto (Unsp spec) [#/Vol] 2.19 10*3/uL 0.83-4.51 [facility] Basophil percentageOrdered B y: Renard Burgos on 01-31-2022 Basophils/100 WBC (Bld) 0.3 % 0-1 [facility] Eosinophils/100 WBC (Bld) 0.2 % 0-5 [facility] Neutrophils (Bld) [#/Vol] 5.7 10*3/uL 2.0-7.7 [facility] Neutrophils/100 WBC (Bld) 64.9 % 47-70 [facility] WBC (Bld) [#/Vol] 8.8 10*3/uL 4.4-11.0 [facility] Blood erythrocytes count (nu mber/volume)Ordered By: Renard Burgos on 01-31-2022 RBC (Bld) [#/Vol] 4.81 10*6/uL 4.6-6.2 [facility] Blood hemoglobin measurement (mass/volume)Ordered By: Renadr Burgos on 01-31-2022 Hemoglobin (Bld) [Mass/Vol] 14.9 g/dL 13.0-16.5 [facility] Blood lymphocytes/100 leukoc ytesOrdered By: Renard Burgos on 01-31-2022 Lymphocytes/100 WBC (Bld) 24.9 % 19-41 [facility] Blood monocytes/100 leukocyt esOrdered By: Renard Burgos on 01-31-2022 Monocytes/100 WBC (Bld) 9.2 % 0-10 [facility] Blood platelet mean volumeOr dered By: Renard Burgos on 01-31-2022 Platelet mean volume (Bld) [Entitic vol] 11.0 fL 6.2-12.0 [facility] Determination of erythrocyte mean corpuscular volume (MCV)Ordered By: Renard Burgos on 01-31-2022 MCV (RBC) [Entitic vol] 92.9 fL 80-94 [facility] Hematocrit Auto (Bld) [Volum e fraction]Ordered By: Renard Burgos on 01-31-2022 Hematocrit (Bld) [Volume fraction] 44.7 % 40-54 [facility] Laboratory - Hematology and Cell countsOrdered By: Renard Burgos on 01-31-2022 Erythrocyte distribution width (RBC) [Entitic vol] 42.9 fL 35.1-43.9 [facility] Erythrocyte distribution width (RBC) [Ratio] 12.6 % 11.6-14.6 [facility] Immature granulocytes/100 WBC (Bld) 0.500 % 0.0-0.9 [facility] Comment on above: IG% - Immature Granu locytes (promyelocytes, myelocytes and metamyelocytes) > 1% indicates that a LEFT SHIFT is Present. MCH (RBC) [Entitic mass] 31.0 pg 27.0-32.0 [facility] Nucleated RBC/100 WBC (Bld) [Ratio] 0 % 0-5 [facility] MCHC Auto (RBC) [Mass/Vol]Or dered By: Renard Burgos on 01-31-2022 MCHC (RBC) [Mass/Vol] 33.3 g/dL 32-36 [facility] Platelets bldOrdered By: Lyubov Burgos on 01-31-2022 Platelets (Bld) [#/Vol] 204 10*3/uL 150-450 [facility] Absolute lymphocyte countOrd ered By: Renard Burgos on 01-24-2022 Lymphocytes Auto (Unsp spec) [#/Vol] 1.82 10*3/uL 0.83-4.51 [facility] Basophil percentageOrdered B y: Renard Burgos on 01-24-2022 Basophils/100 WBC (Bld) 0.3 % 0-1 [facility] Eosinophils/100 WBC (Bld) 0.3 % 0-5 [facility] Neutrophils (Bld) [#/Vol] 6.1 10*3/uL 2.0-7.7 [facility] Neutrophils/100 WBC (Bld) 69.9 % 47-70 [facility] WBC (Bld) [#/Vol] 8.7 10*3/uL 4.4-11.0 [facility] Blood erythrocytes count (nu mber/volume)Ordered By: Renard Burgos on 01-24-2022 RBC (Bld) [#/Vol] 4.74 10*6/uL 4.6-6.2 [facility] Blood hemoglobin measurement (mass/volume)Ordered By: Renard Burgos on 01-24-2022 Hemoglobin (Bld) [Mass/Vol] 14.5 g/dL 13.0-16.5 [facility] Blood lymphocytes/100 leukoc ytesOrdered By: Renard Burgos on 01-24-2022 Lymphocytes/100 WBC (Bld) 20.9 % 19-41 [facility] Blood monocytes/100 leukocyt esOrdered By: Renard Burgos on 01-24-2022 Monocytes/100 WBC (Bld) 8.4 % 0-10 [facility] Blood platelet mean volumeOr dered By: Renard Burgos on 01-24-2022 Platelet mean volume (Bld) [Entitic vol] 10.9 fL 6.2-12.0 [facility] Determination of erythrocyte mean corpuscular volume (MCV)Ordered By: Renard Burgos on 01-24-2022 MCV (RBC) [Entitic vol] 92.0 fL 80-94 [facility] Hematocrit Auto (Bld) [Volum e fraction]Ordered By: Renard Burgos on 01-24-2022 Hematocrit (Bld) [Volume fraction] 43.6 % 40-54 [facility] Laboratory - Hematology and Cell countsOrdered By: Renard Burgos on 01-24-2022 Erythrocyte distribution width (RBC) [Entitic vol] 42.3 fL 35.1-43.9 [facility] Erythrocyte distribution width (RBC) [Ratio] 12.5 % 11.6-14.6 [facility] Immature granulocytes/100 WBC (Bld) 0.200 % 0.0-0.9 [facility] Comment on above: IG% - Immature Granu locytes (promyelocytes, myelocytes and metamyelocytes) > 1% indicates that a LEFT SHIFT is Present. MCH (RBC) [Entitic mass] 30.6 pg 27.0-32.0 [facility] Nucleated RBC/100 WBC (Bld) [Ratio] 0 % 0-5 [facility] MCHC Auto (RBC) [Mass/Vol]Or dered By: Renard Burgos on 01-24-2022 MCHC (RBC) [Mass/Vol] 33.3 g/dL 32-36 [facility] Platelets bldOrdered By: Pet lizy Burgos on 01-24-2022 Platelets (Bld) [#/Vol] 192 10*3/uL 150-450 [facility] Absolute lymphocyte counton 01-17-2022 Lymphocytes Auto (Unsp spec) [#/Vol] 1.89 10*3/uL 0.83-4.51 [facility] Work Phone: Basophil percentageon 2021 Basophils/100 WBC (Bld) 0.4 % 0-1 [facility] Work Phone: [phone] Eosinophils/100 WBC (Bld) 0.3 % 0-5 [facility] Work Phone: Neutrophils (Bld) [#/Vol] 4.4 10*3/uL 2.0-7.7 [facility] Work Phone: [phone] Neutrophils/100 WBC (Bld) 62.4 % 47-70 [facility] Work Phone: [phone] WBC (Bld) [#/Vol] 7.0 10*3/uL 4.4-11.0 [facility] Blood erythrocytes count (nu mber/volume)on 01-17-2022 RBC (Bld) [#/Vol] 4.64 10*6/uL 4.6-6.2 [facility]: Blood hemoglobin measurement (mass/volume)on 01-17-2022 Hemoglobin (Bld) [Mass/Vol] 14.1 g/dL 13.0-16.5 [facility] Work Phone: Blood lymphocytes/100 leukoc yteson 01-17-2022 Lymphocytes/100 WBC (Bld) 27.0 % 19-41 [facility] Work Phone: Blood monocytes/100 leukocyt eson 01-17-2022 Monocytes/100 WBC (Bld) 9.3 % 0-10 [facility] Work Phone: Blood platelet mean volumeon 01-17-2022 Platelet mean volume (Bld) [Entitic vol] 11.1 fL 6.2-12.0 [facility] Work Phone: Determination of erythrocyte mean corpuscular volume (MCV)on 01-17-2022 MCV (RBC) [Entitic vol] 91.8 fL 80-94 [facility] Work Phone: Hematocrit Auto (Bld) [Volum e fraction]on 01-17-2022 Hematocrit (Bld) [Volume fraction] 42.6 % 40-54 [facility] Work Phone: Laboratory - Hematology and Cell countson 01-17-2022 Erythrocyte distribution width (RBC) [Entitic vol] 41.5 fL 35.1-43.9 [facility] Work Phone: Erythrocyte distribution width (RBC) [Ratio] 12.5 % 11.6-14.6 [facility] Work Phone: Immature granulocytes/100 WBC (Bld) 0.600 % 0.0-0.9 [facility] Work Phone: Comment on above: IG% - Immature Granu locytes (promyelocytes, myelocytes and metamyelocytes) > 1% indicates that a LEFT SHIFT is Present. MCH (RBC) [Entitic mass] 30.4 pg 27.0-32.0 [facility] Work Phone: Nucleated RBC/100 WBC (Bld) [Ratio] 0 % 0-5 [facility] Work Phone: MCHC Auto (RBC) [Mass/Vol]on 01-17-2022 MCHC (RBC) [Mass/Vol] 33.1 g/dL 32-36 [facility]: Platelets bldon 01-17-2022 Platelets (Bld) [#/Vol] 200 10*3/uL 150-450 [facility] Work Phone: Absolute lymphocyte counton 01-10-2022 Lymphocytes Auto (Unsp spec) [#/Vol] 2.07 10*3/uL 0.83-4.51 [facility] Work Phone: Basophil percentageon 2021 Basophils/100 WBC (Bld) 0.6 % 0-1 [facility] Work Phone: Eosinophils/100 WBC (Bld) 0.3 % 0-5 [facility] Work Phone: Neutrophils (Bld) [#/Vol] 4.2 10*3/uL 2.0-7.7 [facility] Work Phone: Neutrophils/100 WBC (Bld) 59.2 % 47-70 [facility] Work Phone: WBC (Bld) [#/Vol] 7.0 10*3/uL 4.4-11.0 [facility] Work Phone: [phone] Blood erythrocytes count (nu mber/volume)on 01-10-2022 RBC (Bld) [#/Vol] 4.83 10*6/uL 4.6-6.2 [facility] Work Phone: Blood hemoglobin measurement (mass/volume)on 01-10-2022 Hemoglobin (Bld) [Mass/Vol] 14.8 g/dL 13.0-16.5 [facility] Work Phone: Blood lymphocytes/100 leukoc yteson 01-10-2022 Lymphocytes/100 WBC (Bld) 29.5 % 19-41 [facility] Work Phone: Blood monocytes/100 leukocyt eson 01-10-2022 Monocytes/100 WBC (Bld) 10.1 % 0-10 [facility] Work Phone: Blood platelet mean volumeon 01-10-2022 Platelet mean volume (Bld) [Entitic vol] 10.8 fL 6.2-12.0 [facility] Work Phone: Determination of erythrocyte mean corpuscular volume (MCV)on 01-10-2022 MCV (RBC) [Entitic vol] 97.5 fL 80-94 [facility] Work Phone: Hematocrit Auto (Bld) [Volum e fraction]on 01-10-2022 Hematocrit (Bld) [Volume fraction] 47.1 % 40-54 [facility] Work Phone: Laboratory - Hematology and Cell countson 01-10-2022 Erythrocyte distribution width (RBC) [Entitic vol] 44.9 fL 35.1-43.9 [facility] Work Phone: Erythrocyte distribution width (RBC) [Ratio] 12.7 % 11.6-14.6 [facility] Work Phone: Immature granulocytes/100 WBC (Bld) 0.300 % 0.0-0.9 [facility] Work Phone: Comment on above: IG% - Immature Granu locytes (promyelocytes, myelocytes and metamyelocytes) > 1% indicates that a LEFT SHIFT is Present. MCH (RBC) [Entitic mass] 30.6 pg 27.0-32.0 [facility] Work Phone: Nucleated RBC/100 WBC (Bld) [Ratio] 0 % 0-5 [facility] Work Phone: MCHC Auto (RBC) [Mass/Vol]on 01-10-2022 MCHC (RBC) [Mass/Vol] 31.4 g/dL 32-36 [facility] Work [facility]: Platelets bldon 01-10-2022 Platelets (Bld) [#/Vol] 169 10*3/uL 150-450 [facility] Work Phone: Absolute lymphocyte counton 01-04-2022 Lymphocytes Auto (Unsp spec) [#/Vol] 1.84 10*3/uL 0.83-4.51 [facility] Work Phone: Basophil percentageon 2021 Basophils/100 WBC (Bld) 0.3 % 0-1 [facility] Work Phone: Eosinophils/100 WBC (Bld) 0.3 % 0-5 [facility] Work Phone: Neutrophils (Bld) [#/Vol] 4.8 10*3/uL 2.0-7.7 [facility] Work Phone: Neutrophils/100 WBC (Bld) 64.8 % 47-70 [facility] Work Phone: WBC (Bld) [#/Vol] 7.4 10*3/uL 4.4-11.0 [facility] Work Phone: Blood erythrocytes count (nu mber/volume)on 01-04-2022 RBC (Bld) [#/Vol] 4.67 10*6/uL 4.6-6.2 [facility]: Blood hemoglobin measurement (mass/volume)on 01-04-2022 Hemoglobin (Bld) [Mass/Vol] 14.2 g/dL 13.0-16.5 [facility] Work Phone: Blood lymphocytes/100 leukoc yteson 01-04-2022 Lymphocytes/100 WBC (Bld) 25.0 % 19-41 [facility] Work Phone: Blood monocytes/100 leukocyt eson 01-04-2022 Monocytes/100 WBC (Bld) 9.1 % 0-10 [facility] Work Phone: Blood platelet mean volumeon 01-04-2022 Platelet mean volume (Bld) [Entitic vol] 11.0 fL 6.2-12.0 [facility] Work Phone: Determination of erythrocyte mean corpuscular volume (MCV)on 01-04-2022 MCV (RBC) [Entitic vol] 91.0 fL 80-94 [facility] Work Phone: Hematocrit Auto (Bld) [Volum e fraction]on 01-04-2022 Hematocrit (Bld) [Volume fraction] 42.5 % 40-54 [facility] Work Phone: Laboratory - Hematology and Cell countson 01-04-2022 Erythrocyte distribution width (RBC) [Entitic vol] 41.4 fL 35.1-43.9 [facility] Work Phone: Erythrocyte distribution width (RBC) [Ratio] 12.7 % 11.6-14.6 [facility] Work Phone: Immature granulocytes/100 WBC (Bld) 0.500 % 0.0-0.9 [facility] Work Phone: Comment on above: IG% - Immature Granu locytes (promyelocytes, myelocytes and metamyelocytes) > 1% indicates that a LEFT SHIFT is Present. MCH (RBC) [Entitic mass] 30.4 pg 27.0-32.0 [facility] Work Phone: Nucleated RBC/100 WBC (Bld) [Ratio] 0 % 0-5 [facility] Work Phone: MCHC Auto (RBC) [Mass/Vol]on 01-04-2022 MCHC (RBC) [Mass/Vol] 33.4 g/dL 32-36 [facility] Work Phone: Platelets bldon 01-04-2022 Platelets (Bld) [#/Vol] 184 10*3/uL 150-450 [facility] Work Phone: Absolute lymphocyte counton 12-27-2021 Lymphocytes Auto (Unsp spec) [#/Vol] 1.79 10*3/uL 0.83-4.51 [facility] Work Phone: Basophil percentageon 2021 Basophils/100 WBC (Bld) 0.4 % 0-1 [facility] Work Phone: Eosinophils/100 WBC (Bld) 0.4 % 0-5 [facility] Work Phone: Neutrophils (Bld) [#/Vol] 4.9 10*3/uL 2.0-7.7 [facility] Work Phone: Neutrophils/100 WBC (Bld) 65.2 % 47-70 [facility] Work Phone: WBC (Bld) [#/Vol] 7.6 10*3/uL 4.4-11.0 [facility] Work Phone: Blood erythrocytes count (nu mber/volume)on 12-27-2021 RBC (Bld) [#/Vol] 4.66 10*6/uL 4.6-6.2 [facility] Work Phone: Blood hemoglobin measurement (mass/volume)on 12-27-2021 Hemoglobin (Bld) [Mass/Vol] 14.5 g/dL 13.0-16.5 [facility] Work Phone: Blood lymphocytes/100 leukoc yteson 12-27-2021 Lymphocytes/100 WBC (Bld) 23.6 % 19-41 [facility] Work Phone: Blood monocytes/100 leukocyt eson 12-27-2021 Monocytes/100 WBC (Bld) 10.0 % 0-10 [facility] Work Phone: Blood platelet mean volumeon 12-27-2021 Platelet mean volume (Bld) [Entitic vol] 10.9 fL 6.2-12.0 [facility] Work Phone: Determination of erythrocyte mean corpuscular volume (MCV)on 12-27-2021 MCV (RBC) [Entitic vol] 91.0 fL 80-94 [facility] Work Phone: Hematocrit Auto (Bld) [Volum e fraction]on 12-27-2021 Hematocrit (Bld) [Volume fraction] 42.4 % 40-54 [facility] Work Phone: Laboratory - Hematology and Cell countson 12-27-2021 Erythrocyte distribution width (RBC) [Entitic vol] 41.2 fL 35.1-43.9 [facility] Work Phone: Erythrocyte distribution width (RBC) [Ratio] 12.6 % 11.6-14.6 [facility] Work Phone: Immature granulocytes/100 WBC (Bld) 0.400 % 0.0-0.9 [facility] Work Phone: Comment on above: IG% - Immature Granu locytes (promyelocytes, myelocytes and metamyelocytes) > 1% indicates that a LEFT SHIFT is Present. MCH (RBC) [Entitic mass] 31.1 pg 27.0-32.0 [facility] Work Phone: Nucleated RBC/100 WBC (Bld) [Ratio] 0 % 0-5 [facility] Work Phone: MCHC Auto (RBC) [Mass/Vol]on 12-27-2021 MCHC (RBC) [Mass/Vol] 34.2 g/dL 32-36 [facility] Work Phone: Platelets bldon 12-27-2021 Platelets (Bld) [#/Vol] 185 10*3/uL 150-450 [facility] Work Phone: Absolute lymphocyte counton 12-20-2021 Lymphocytes Auto (Unsp spec) [#/Vol] 2.02 10*3/uL 0.83-4.51 [facility] Work Phone: Basophil percentageon 2021 Basophils/100 WBC (Bld) 0.2 % 0-1 [facility] Work Phone: Eosinophils/100 WBC (Bld) 0.3 % 0-5 [facility] Work Phone: Neutrophils (Bld) [#/Vol] 3.6 10*3/uL 2.0-7.7 [facility] Work Phone: Neutrophils/100 WBC (Bld) 57.8 % 47-70 [facility] Work Phone: WBC (Bld) [#/Vol] 6.1 10*3/uL 4.4-11.0 [facility] Work [facility]: Blood erythrocytes count (nu mber/volume)on 12-20-2021 RBC (Bld) [#/Vol] 4.81 10*6/uL 4.6-6.2 [facility] Work Phone: Blood hemoglobin measurement (mass/volume)on 12-20-2021 Hemoglobin (Bld) [Mass/Vol] 14.8 g/dL 13.0-16.5 [facility] Work Phone: Blood lymphocytes/100 leukoc yteson 12-20-2021 Lymphocytes/100 WBC (Bld) 32.9 % 19-41 [facility] Work Phone: Blood monocytes/100 leukocyt eson 12-20-2021 Monocytes/100 WBC (Bld) 8.3 % 0-10 [facility] Work Phone: Blood platelet adequacy dete ction by light microscopyon 12-20-2021 Platelets LM Ql (Bld) ADEQUATE ADEQ [facility] Work Phone: Blood platelet mean volumeon 12-20-2021 Platelet mean volume (Bld) [Entitic vol] 11.1 fL 6.2-12.0 [facility] Work Phone: Determination of erythrocyte mean corpuscular volume (MCV)on 12-20-2021 MCV (RBC) [Entitic vol] 93.1 fL 80-94 [facility] Work Phone: Hematocrit Auto (Bld) [Volum e fraction]on 12-20-2021 Hematocrit (Bld) [Volume fraction] 44.8 % 40-54 [facility] Work Phone: Laboratory - Hematology and Cell countson 12-20-2021 Erythrocyte distribution width (RBC) [Entitic vol] 42.4 fL 35.1-43.9 [facility] Work Phone: Erythrocyte distribution width (RBC) [Ratio] 12.4 % 11.6-14.6 [facility] Work Phone: Immature granulocytes/100 WBC (Bld) 0.500 % 0.0-0.9 [facility] Work Phone: Comment on above: IG% - Immature Granu locytes (promyelocytes, myelocytes and metamyelocytes) > 1% indicates that a LEFT SHIFT is Present. MCH (RBC) [Entitic mass] 30.8 pg 27.0-32.0 [facility] Work Phone: Nucleated RBC/100 WBC (Bld) [Ratio] 0 % 0-5 [facility] Work Phone: MCHC Auto (RBC) [Mass/Vol]on 12-20-2021 MCHC (RBC) [Mass/Vol] 33.0 g/dL 32-36 [facility] Work Phone: Platelets bldon 12-20-2021 Platelets (Bld) [#/Vol] See comment 150-450 [facility] Work Phone: Comment on above: Please [...] Auto (Unsp spec) [#/Vol] 1.88 10*3/uL 0.83-4.51 [facility] Work Phone: Basophil percentageon 2021 Basophils/100 WBC (Bld) 0.6 % 0-1 [facility] Work Phone: Eosinophils/100 WBC (Bld) 0.3 % 0-5 [facility] Work Phone: [phone] Neutrophils (Bld) [#/Vol] 4.5 10*3/uL 2.0-7.7 [facility] Work Phone: Neutrophils/100 WBC (Bld) 63.6 % 47-70 [facility] Work Phone: WBC (Bld) [#/Vol] 7.1 10*3/uL 4.4-11.0 [facility] Work Phone: Blood erythrocytes count (nu mber/volume)on 12-13-2021 RBC (Bld) [#/Vol] 4.70 10*6/uL 4.6-6.2 [facility] Work [facility]: Blood hemoglobin measurement (mass/volume)on 12-13-2021 Hemoglobin (Bld) [Mass/Vol] 14.4 g/dL 13.0-16.5 [facility] Work Phone: Blood lymphocytes/100 leukoc yteson 12-13-2021 Lymphocytes/100 WBC (Bld) 26.7 % 19-41 [facility] Work Phone: Blood monocytes/100 leukocyt eson 12-13-2021 Monocytes/100 WBC (Bld) 8.5 % 0-10 [facility] Work Phone: Blood platelet mean volumeon 12-13-2021 Platelet mean volume (Bld) [Entitic vol] 10.9 fL 6.2-12.0 [facility] Work Phone: Determination of erythrocyte mean corpuscular volume (MCV)on 12-13-2021 MCV (RBC) [Entitic vol] 90.9 fL 80-94 [facility] Work Phone: Hematocrit Auto (Bld) [Volum e fraction]on 12-13-2021 Hematocrit (Bld) [Volume fraction] 42.7 % 40-54 [facility] Work Phone: Laboratory - Hematology and Cell countson 12-13-2021 Erythrocyte distribution width (RBC) [Entitic vol] 42.1 fL 35.1-43.9 [facility] Work Phone: Erythrocyte distribution width (RBC) [Ratio] 12.6 % 11.6-14.6 [facility] Work Phone: [phone] Immature granulocytes/100 WBC (Bld) 0.300 % 0.0-0.9 [facility] Work Phone: Comment on above: IG% - Immature Granu locytes (promyelocytes, myelocytes and metamyelocytes) > 1% indicates that a LEFT SHIFT is Present. MCH (RBC) [Entitic mass] 30.6 pg 27.0-32.0 [facility] Work Phone: [phone] Nucleated RBC/100 WBC (Bld) [Ratio] 0 % 0-5 [facility] Work Phone: [phone] MCHC Auto (RBC) [Mass/Vol]on 12-13-2021 MCHC (RBC) [Mass/Vol] 33.7 g/dL 32-36 [facility] Work Phone: [phone] Platelets bldon 12-13-2021 Platelets (Bld) [#/Vol] 194 10*3/uL 150-450 [facility] Work Phone: [phone] Absolute lymphocyte counton 12-06-2021 Lymphocytes Auto (Unsp spec) [#/Vol] 1.91 10*3/uL 0.83-4.51 [facility] Work Phone: Basophil percentageon 2021 Basophils/100 WBC (Bld) 0.4 % 0-1 [facility] Work Phone: Eosinophils/100 WBC (Bld) 0.3 % 0-5 [facility] Work Phone: Neutrophils (Bld) [#/Vol] 4.4 10*3/uL 2.0-7.7 [facility] Work Phone: Neutrophils/100 WBC (Bld) 62.2 % 47-70 [facility] Work Phone: WBC (Bld) [#/Vol] 7.0 10*3/uL 4.4-11.0 [facility] Work Phone: [phone] Blood erythrocytes count (nu mber/volume)on 12-06-2021 RBC (Bld) [#/Vol] 4.58 10*6/uL 4.6-6.2 [facility] Work [facility]: Blood hemoglobin measurement (mass/volume)on 12-06-2021 Hemoglobin (Bld) [Mass/Vol] 13.8 g/dL 13.0-16.5 [facility] Work Phone: Blood lymphocytes/100 leukoc yteson 12-06-2021 Lymphocytes/100 WBC (Bld) 27.2 % 19-41 [facility] Work Phone: Blood monocytes/100 leukocyt eson 12-06-2021 Monocytes/100 WBC (Bld) 9.6 % 0-10 [facility] Work Phone: Blood platelet mean volumeon 12-06-2021 Platelet mean volume (Bld) [Entitic vol] 11.1 fL 6.2-12.0 [facility] Work Phone: Determination of erythrocyte mean corpuscular volume (MCV)on 12-06-2021 MCV (RBC) [Entitic vol] 92.1 fL 80-94 [facility] Work Phone: Hematocrit Auto (Bld) [Volum e fraction]on 12-06-2021 Hematocrit (Bld) [Volume fraction] 42.2 % 40-54 [facility] Work Phone: Laboratory - Hematology and Cell countson 12-06-2021 Erythrocyte distribution width (RBC) [Entitic vol] 42.1 fL 35.1-43.9 [facility] Work Phone: Erythrocyte distribution width (RBC) [Ratio] 12.6 % 11.6-14.6 [facility] Work Phone: Immature granulocytes/100 WBC (Bld) 0.300 % 0.0-0.9 [facility] Work Phone: Comment on above: IG% - Immature Granu locytes (promyelocytes, myelocytes and metamyelocytes) > 1% indicates that a LEFT SHIFT is Present. MCH (RBC) [Entitic mass] 30.1 pg 27.0-32.0 [facility] Work Phone: Nucleated RBC/100 WBC (Bld) [Ratio] 0 % 0-5 [facility] Work Phone: MCHC Auto (RBC) [Mass/Vol]on 12-06-2021 MCHC (RBC) [Mass/Vol] 32.7 g/dL 32-36 [facility] Work [facility]: Platelets bldon 12-06-2021 Platelets (Bld) [#/Vol] 180 10*3/uL 150-450 [facility] Work Phone: [phone] Absolute lymphocyte counton 11-29-2021 Lymphocytes Auto (Unsp spec) [#/Vol] 2.00 10*3/uL 0.83-4.51 [facility] Work Phone: [phone] Basophil percentageon 2021 Basophils/100 WBC (Bld) 0.4 % 0-1 [facility] Work Phone: Eosinophils/100 WBC (Bld) 0.3 % 0-5 [facility] Work Phone: Neutrophils (Bld) [#/Vol] 4.4 10*3/uL 2.0-7.7 [facility] Work Phone: [phone] Neutrophils/100 WBC (Bld) 62.8 % 47-70 [facility] Work Phone: WBC (Bld) [#/Vol] 7.0 10*3/uL 4.4-11.0 [facility] Work Phone: [phone] Blood erythrocytes count (nu mber/volume)on 11-29-2021 RBC (Bld) [#/Vol] 4.72 10*6/uL 4.6-6.2 [facility] Work Phone: [phone] Blood hemoglobin measurement (mass/volume)on 11-29-2021 Hemoglobin (Bld) [Mass/Vol] 14.6 g/dL 13.0-16.5 [facility] Work Phone: Blood lymphocytes/100 leukoc yteson 11-29-2021 Lymphocytes/100 WBC (Bld) 28.6 % 19-41 [facility] Work Phone: Blood monocytes/100 leukocyt eson 11-29-2021 Monocytes/100 WBC (Bld) 7.6 % 0-10 [facility] Work Phone: Blood platelet mean volumeon 11-29-2021 Platelet mean volume (Bld) [Entitic vol] 11.1 fL 6.2-12.0 [facility] Work Phone: Determination of erythrocyte mean corpuscular volume (MCV)on 11-29-2021 MCV (RBC) [Entitic vol] 91.9 fL 80-94 [facility] Work Phone: Hematocrit Auto (Bld) [Volum e fraction]on 11-29-2021 Hematocrit (Bld) [Volume fraction] 43.4 % 40-54 [facility] Work Phone: Laboratory - Hematology and Cell countson 11-29-2021 Erythrocyte distribution width (RBC) [Entitic vol] 41.8 fL 35.1-43.9 [facility] Work Phone: Erythrocyte distribution width (RBC) [Ratio] 12.4 % 11.6-14.6 [facility] Work Phone: Immature granulocytes/100 WBC (Bld) 0.300 % 0.0-0.9 [facility] Work Phone: Comment on above: IG% - Immature Granu locytes (promyelocytes, myelocytes and metamyelocytes) > 1% indicates that a LEFT SHIFT is Present. MCH (RBC) [Entitic mass] 30.9 pg 27.0-32.0 [facility] Work Phone: Nucleated RBC/100 WBC (Bld) [Ratio] 0 % 0-5 [facility] Work Phone: MCHC Auto (RBC) [Mass/Vol]on 11-29-2021 MCHC (RBC) [Mass/Vol] 33.6 g/dL 32-36 [facility] Work Phone: [phone] Platelets bldon 11-29-2021 Platelets (Bld) [#/Vol] 205 10*3/uL 150-450 [facility] Work Phone: [phone] Absolute lymphocyte counton 11-22-2021 Lymphocytes Auto (Unsp spec) [#/Vol] 2.25 10*3/uL 0.83-4.51 [facility] Work Phone: [phone] Basophil percentageon 2021 Basophils/100 WBC (Bld) 0.4 % 0-1 [facility] Work Phone: [phone] Eosinophils/100 WBC (Bld) 0.4 % 0-5 [facility] Work Phone: [phone] Neutrophils (Bld) [#/Vol] 5.1 10*3/uL 2.0-7.7 [facility] Work Phone: [phone] Neutrophils/100 WBC (Bld) 61.7 % 47-70 [facility] Work Phone: [phone] WBC (Bld) [#/Vol] 8.3 10*3/uL 4.4-11.0 [facility] Work Phone: Blood erythrocytes count (nu mber/volume)on 11-22-2021 RBC (Bld) [#/Vol] 4.47 10*6/uL 4.6-6.2 [facility] Work Phone: [phone] Blood hemoglobin measurement (mass/volume)on 11-22-2021 Hemoglobin (Bld) [Mass/Vol] 13.5 g/dL 13.0-16.5 [facility] Work Phone: [phone] Blood lymphocytes/100 leukoc yteson 11-22-2021 Lymphocytes/100 WBC (Bld) 27.2 % 19-41 [facility] Work Phone: [phone] Blood monocytes/100 leukocyt eson 11-22-2021 Monocytes/100 WBC (Bld) 9.9 % 0-10 [facility] Work Phone: Blood platelet mean volumeon 11-22-2021 Platelet mean volume (Bld) [Entitic vol] 11.1 fL 6.2-12.0 [facility] Work Phone: Determination of erythrocyte mean corpuscular volume (MCV)on 11-22-2021 MCV (RBC) [Entitic vol] 92.2 fL 80-94 [facility] Work Phone: Hematocrit Auto (Bld) [Volum e fraction]on 11-22-2021 Hematocrit (Bld) [Volume fraction] 41.2 % 40-54 [facility] Work Phone: Laboratory - Hematology and Cell countson 11-22-2021 Erythrocyte distribution width (RBC) [Entitic vol] 42.3 fL 35.1-43.9 [facility] Work Phone: Erythrocyte distribution width (RBC) [Ratio] 12.6 % 11.6-14.6 [facility] Work Phone: Immature granulocytes/100 WBC (Bld) 0.400 % 0.0-0.9 [facility] Work Phone: Comment on above: IG% - Immature Granu locytes (promyelocytes, myelocytes and metamyelocytes) > 1% indicates that a LEFT SHIFT is Present. MCH (RBC) [Entitic mass] 30.2 pg 27.0-32.0 [facility] Work Phone: Nucleated RBC/100 WBC (Bld) [Ratio] 0 % 0-5 [facility] Work Phone: MCHC Auto (RBC) [Mass/Vol]on 11-22-2021 MCHC (RBC) [Mass/Vol] 32.8 g/dL 32-36 [facility] Work [facility]: Platelets bldon 11-22-2021 Platelets (Bld) [#/Vol] 190 10*3/uL 150-450 [facility] Work Phone: Absolute lymphocyte counton 11-15-2021 Lymphocytes Auto (Unsp spec) [#/Vol] 2.09 10*3/uL 0.83-4.51 [facility] Work Phone: Basophil percentageon 2021 Basophils/100 WBC (Bld) 0.6 % 0-1 [facility] Work Phone: [phone] Eosinophils/100 WBC (Bld) 0.4 % 0-5 [facility] Work Phone: [phone] Neutrophils (Bld) [#/Vol] 4.2 10*3/uL 2.0-7.7 [facility] Work Phone: Neutrophils/100 WBC (Bld) 59.1 % 47-70 [facility] Work Phone: [phone] WBC (Bld) [#/Vol] 7.1 10*3/uL 4.4-11.0 [facility] Work [facility]: Blood erythrocytes count (nu mber/volume)on 11-15-2021 RBC (Bld) [#/Vol] 4.72 10*6/uL 4.6-6.2 [facility] Work [facility]: Blood hemoglobin measurement (mass/volume)on 11-15-2021 Hemoglobin (Bld) [Mass/Vol] 14.6 g/dL 13.0-16.5 [facility] Work Phone: Blood lymphocytes/100 leukoc yteson 11-15-2021 Lymphocytes/100 WBC (Bld) 29.4 % 19-41 [facility] Work Phone: [phone] Blood monocytes/100 leukocyt eson 11-15-2021 Monocytes/100 WBC (Bld) 10.1 % 0-10 [facility] Work Phone: [phone] Blood platelet mean volumeon 11-15-2021 Platelet mean volume (Bld) [Entitic vol] 10.7 fL 6.2-12.0 [facility] Work Phone: Determination of erythrocyte mean corpuscular volume (MCV)on 11-15-2021 MCV (RBC) [Entitic vol] 91.9 fL 80-94 [facility] Work Phone: Hematocrit Auto (Bld) [Volum e fraction]on 11-15-2021 Hematocrit (Bld) [Volume fraction] 43.4 % 40-54 [facility] Work Phone: Laboratory - Hematology and Cell countson 11-15-2021 Erythrocyte distribution width (RBC) [Entitic vol] 41.9 fL 35.1-43.9 [facility] Work Phone: Erythrocyte distribution width (RBC) [Ratio] 12.4 % 11.6-14.6 [facility] Work Phone: Immature granulocytes/100 WBC (Bld) 0.400 % 0.0-0.9 [facility] Work Phone: Comment on above: IG% - Immature Granu locytes (promyelocytes, myelocytes and metamyelocytes) > 1% indicates that a LEFT SHIFT is Present. MCH (RBC) [Entitic mass] 30.9 pg 27.0-32.0 [facility] Work Phone: Nucleated RBC/100 WBC (Bld) [Ratio] 0 % 0-5 [facility] Work Phone: MCHC Auto (RBC) [Mass/Vol]on 11-15-2021 MCHC (RBC) [Mass/Vol] 33.6 g/dL 32-36 [facility] Work [facility]: Platelets bldon 11-15-2021 Platelets (Bld) [#/Vol] 191 10*3/uL 150-450 [facility] Work Phone: Absolute lymphocyte counton 11-08-2021 Lymphocytes Auto (Unsp spec) [#/Vol] 1.97 10*3/uL 0.83-4.51 [facility] Work Phone: Basophil percentageon 2021 Basophils/100 WBC (Bld) 0.3 % 0-1 [facility] Work Phone: Eosinophils/100 WBC (Bld) 0.3 % 0-5 [facility] Work Phone: Neutrophils (Bld) [#/Vol] 5.1 10*3/uL 2.0-7.7 [facility] Work Phone: Neutrophils/100 WBC (Bld) 64.6 % 47-70 [facility] Work Phone: WBC (Bld) [#/Vol] 7.8 10*3/uL 4.4-11.0 [facility] Work [facility]: Blood erythrocytes count (nu mber/volume)on 11-08-2021 RBC (Bld) [#/Vol] 4.53 10*6/uL 4.6-6.2 [facility] Work [facility]: Blood hemoglobin measurement (mass/volume)on 11-08-2021 Hemoglobin (Bld) [Mass/Vol] 14.2 g/dL 13.0-16.5 [facility] Work Phone: Blood lymphocytes/100 leukoc yteson 11-08-2021 Lymphocytes/100 WBC (Bld) 25.2 % 19-41 [facility] Work Phone: Blood monocytes/100 leukocyt eson 11-08-2021 Monocytes/100 WBC (Bld) 9.3 % 0-10 [facility] Work Phone: [phone] Blood platelet mean volumeon 11-08-2021 Platelet mean volume (Bld) [Entitic vol] 10.9 fL 6.2-12.0 [facility] Work Phone: Determination of erythrocyte mean corpuscular volume (MCV)on 11-08-2021 MCV (RBC) [Entitic vol] 92.7 fL 80-94 [facility] Work Phone: [phone] Hematocrit Auto (Bld) [Volum e fraction]on 11-08-2021 Hematocrit (Bld) [Volume fraction] 42.0 % 40-54 [facility] Work Phone: Laboratory - Hematology and Cell countson 11-08-2021 Erythrocyte distribution width (RBC) [Entitic vol] 42.3 fL 35.1-43.9 [facility] Work Phone: [phone] Erythrocyte distribution width (RBC) [Ratio] 12.5 % 11.6-14.6 [facility] [facility] Work Phone: [phone] Immature granulocytes/100 WBC (Bld) 0.300 % 0.0-0.9 [facility] Work Phone: [phone] Comment on above: IG% - Immature Granu locytes (promyelocytes, myelocytes and metamyelocytes) > 1% indicates that a LEFT SHIFT is Present. MCH (RBC) [Entitic mass] 31.3 pg 27.0-32.0 [facility] Work Phone: Nucleated RBC/100 WBC (Bld) [Ratio] 0 % 0-5 [facility] Work Phone: MCHC Auto (RBC) [Mass/Vol]on 11-08-2021 MCHC (RBC) [Mass/Vol] 33.8 g/dL 32-36 [facility] Work Phone: [phone] Platelets bldon 11-08-2021 Platelets (Bld) [#/Vol] 207 10*3/uL 150-450 [facility] Work Phone: Absolute lymphocyte counton 10-25-2021 Lymphocytes Auto (Unsp spec) [#/Vol] 2.05 10*3/uL 0.83-4.51 [facility] Work Phone: [phone] Basophil percentageon 2021 Basophils/100 WBC (Bld) 0.4 % 0-1 [facility] Work Phone: Eosinophils/100 WBC (Bld) 0.3 % 0-5 [facility] Work Phone: [phone] Neutrophils (Bld) [#/Vol] 4.2 10*3/uL 2.0-7.7 [facility] Work Phone: Neutrophils/100 WBC (Bld) 61.3 % 47-70 [facility] Work Phone: WBC (Bld) [#/Vol] 6.8 10*3/uL 4.4-11.0 [facility] Work Phone: Blood erythrocytes count (nu mber/volume)on 10-25-2021 RBC (Bld) [#/Vol] 4.56 10*6/uL 4.6-6.2 [facility]: Blood hemoglobin measurement (mass/volume)on 10-25-2021 Hemoglobin (Bld) [Mass/Vol] 13.9 g/dL 13.0-16.5 [facility] Work Phone: Blood lymphocytes/100 leukoc yteson 10-25-2021 Lymphocytes/100 WBC (Bld) 30.1 % 19-41 [facility] Work Phone: [phone] Blood monocytes/100 leukocyt eson 10-25-2021 Monocytes/100 WBC (Bld) 7.3 % 0-10 [facility] Work Phone: Blood platelet mean volumeon 10-25-2021 Platelet mean volume (Bld) [Entitic vol] 10.6 fL 6.2-12.0 [facility] Work Phone: Determination of erythrocyte mean corpuscular volume (MCV)on 10-25-2021 MCV (RBC) [Entitic vol] 91.0 fL 80-94 [facility] Work Phone: Hematocrit Auto (Bld) [Volum e fraction]on 10-25-2021 Hematocrit (Bld) [Volume fraction] 41.5 % 40-54 [facility] Work Phone: Laboratory - Hematology and Cell countson 10-25-2021 Erythrocyte distribution width (RBC) [Entitic vol] 41.7 fL 35.1-43.9 [facility] Work Phone: Erythrocyte distribution width (RBC) [Ratio] 12.6 % 11.6-14.6 [facility] Work Phone: Immature granulocytes/100 WBC (Bld) 0.600 % 0.0-0.9 [facility] Work Phone: Comment on above: IG% - Immature Granu locytes (promyelocytes, myelocytes and metamyelocytes) > 1% indicates that a LEFT SHIFT is Present. MCH (RBC) [Entitic mass] 30.5 pg 27.0-32.0 [facility] Work Phone: Nucleated RBC/100 WBC (Bld) [Ratio] 0 % 0-5 [facility] Work Phone: [phone] MCHC Auto (RBC) [Mass/Vol]on 10-25-2021 MCHC (RBC) [Mass/Vol] 33.5 g/dL 32-36 [facility] Work Phone: Platelets bldon 10-25-2021 Platelets (Bld) [#/Vol] 191 10*3/uL 150-450 [facility] Work Phone: Absolute lymphocyte counton 10-18-2021 Lymphocytes Auto (Unsp spec) [#/Vol] 1.66 10*3/uL 0.83-4.51 [facility] Work Phone: Basophil percentageon 2021 Basophils/100 WBC (Bld) 0.5 % 0-1 [facility] Work Phone: Eosinophils/100 WBC (Bld) 0.2 % 0-5 [facility] Work Phone: Neutrophils (Bld) [#/Vol] 4.3 10*3/uL 2.0-7.7 [facility] Work Phone: Neutrophils/100 WBC (Bld) 65.0 % 47-70 [facility] Work Phone: WBC (Bld) [#/Vol] 6.6 10*3/uL 4.4-11.0 [facility] Work Phone: Blood erythrocytes count (nu mber/volume)on 10-18-2021 RBC (Bld) [#/Vol] 4.57 10*6/uL 4.6-6.2 [facility] Work Phone: Blood hemoglobin measurement (mass/volume)on 10-18-2021 Hemoglobin (Bld) [Mass/Vol] 14.1 g/dL 13.0-16.5 [facility] Work Phone: Blood lymphocytes/100 leukoc yteson 10-18-2021 Lymphocytes/100 WBC (Bld) 25.2 % 19-41 [facility] Work Phone: Blood monocytes/100 leukocyt eson 10-18-2021 Monocytes/100 WBC (Bld) 8.8 % 0-10 [facility] Work Phone: Blood platelet mean volumeon 10-18-2021 Platelet mean volume (Bld) [Entitic vol] 10.6 fL 6.2-12.0 [facility] Work Phone: Determination of erythrocyte mean corpuscular volume (MCV)on 10-18-2021 MCV (RBC) [Entitic vol] 91.7 fL 80-94 [facility] Work Phone: Hematocrit Auto (Bld) [Volum e fraction]on 10-18-2021 Hematocrit (Bld) [Volume fraction] 41.9 % 40-54 [facility] Work Phone: Laboratory - Hematology and Cell countson 10-18-2021 Erythrocyte distribution width (RBC) [Entitic vol] 41.6 fL 35.1-43.9 [facility] Work Phone: Erythrocyte distribution width (RBC) [Ratio] 12.5 % 11.6-14.6 [facility] Work Phone: Immature granulocytes/100 WBC (Bld) 0.300 % 0.0-0.9 [facility] Work Phone: Comment on above: IG% - Immature Granu locytes (promyelocytes, myelocytes and metamyelocytes) > 1% indicates that a LEFT SHIFT is Present. MCH (RBC) [Entitic mass] 30.9 pg 27.0-32.0 [facility] Work Phone: Nucleated RBC/100 WBC (Bld) [Ratio] 0 % 0-5 [facility] Work Phone: MCHC Auto (RBC) [Mass/Vol]on 10-18-2021 MCHC (RBC) [Mass/Vol] 33.7 g/dL 32-36 [facility] Work Phone: Platelets bldon 10-18-2021 Platelets (Bld) [#/Vol] 185 10*3/uL 150-450 [facility] Work Phone: Absolute lymphocyte counton 10-11-2021 Lymphocytes Auto (Unsp spec) [#/Vol] 1.66 10*3/uL 0.83-4.51 [facility] Work Phone: Basophil percentageon 2021 Basophils/100 WBC (Bld) 0.5 % 0-1 [facility] Work Phone: Eosinophils/100 WBC (Bld) 0.1 % 0-5 [facility] Work Phone: Neutrophils (Bld) [#/Vol] 5.9 10*3/uL 2.0-7.7 [facility] Work Phone: Neutrophils/100 WBC (Bld) 70.8 % 47-70 [facility] Work Phone: WBC (Bld) [#/Vol] 8.3 10*3/uL 4.4-11.0 [facility] Work Phone: Blood erythrocytes count (nu mber/volume)on 10-11-2021 RBC (Bld) [#/Vol] 4.66 10*6/uL 4.6-6.2 [facility] Work Phone: Blood hemoglobin measurement (mass/volume)on 10-11-2021 Hemoglobin (Bld) [Mass/Vol] 14.1 g/dL 13.0-16.5 [facility] Work Phone: Blood lymphocytes/100 leukoc yteson 10-11-2021 Lymphocytes/100 WBC (Bld) 20.0 % 19-41 [facility] Work Phone: Blood monocytes/100 leukocyt eson 10-11-2021 Monocytes/100 WBC (Bld) 8.2 % 0-10 [facility] Work Phone: Blood platelet mean volumeon 10-11-2021 Platelet mean volume (Bld) [Entitic vol] 10.7 fL 6.2-12.0 [facility] Work Phone: Determination of erythrocyte mean corpuscular volume (MCV)on 10-11-2021 MCV (RBC) [Entitic vol] 91.8 fL 80-94 [facility] Work Phone: Hematocrit Auto (Bld) [Volum e fraction]on 10-11-2021 Hematocrit (Bld) [Volume fraction] 42.8 % 40-54 [facility] Work Phone: Laboratory - Hematology and Cell countson 10-11-2021 Erythrocyte distribution width (RBC) [Entitic vol] 42.8 fL 35.1-43.9 [facility] Work Phone: Erythrocyte distribution width (RBC) [Ratio] 12.8 % 11.6-14.6 [facility] Work Phone: Immature granulocytes/100 WBC (Bld) 0.400 % 0.0-0.9 [facility] Work Phone: Comment on above: IG% - Immature Granu locytes (promyelocytes, myelocytes and metamyelocytes) > 1% indicates that a LEFT SHIFT is Present. MCH (RBC) [Entitic mass] 30.3 pg 27.0-32.0 [facility] Work Phone: Nucleated RBC/100 WBC (Bld) [Ratio] 0 % 0-5 [facility] Work Phone: MCHC Auto (RBC) [Mass/Vol]on 10-11-2021 MCHC (RBC) [Mass/Vol] 32.9 g/dL 32-36 [facility] Work Phone: Platelets bldon 10-11-2021 Platelets (Bld) [#/Vol] 193 10*3/uL 150-450 [facility] Work Phone: [phone] Absolute lymphocyte counton 10-04-2021 Lymphocytes Auto (Unsp spec) [#/Vol] 1.97 10*3/uL 0.83-4.51 [facility] Work Phone: Basophil percentageon 2021 Basophils/100 WBC (Bld) 0.5 % 0-1 [facility] Work Phone: [phone] Eosinophils/100 WBC (Bld) 0.1 % 0-5 [facility] Work Phone: Neutrophils (Bld) [#/Vol] 5.0 10*3/uL 2.0-7.7 [facility] Work Phone: Neutrophils/100 WBC (Bld) 64.4 % 47-70 [facility] Work Phone: [phone] WBC (Bld) [#/Vol] 7.7 10*3/uL 4.4-11.0 [facility] Work Phone: Blood erythrocytes count (nu mber/volume)on 10-04-2021 RBC (Bld) [#/Vol] 4.52 10*6/uL 4.6-6.2 [facility]: [phone] Blood hemoglobin measurement (mass/volume)on 10-04-2021 Hemoglobin (Bld) [Mass/Vol] 13.9 g/dL 13.0-16.5 [facility] Work Phone: [phone] Blood lymphocytes/100 leukoc yteson 10-04-2021 Lymphocytes/100 WBC (Bld) 25.6 % 19-41 [facility] Work Phone: Blood monocytes/100 leukocyt eson 10-04-2021 Monocytes/100 WBC (Bld) 9.0 % 0-10 [facility] Work Phone: Blood platelet mean volumeon 10-04-2021 Platelet mean volume (Bld) [Entitic vol] 11.0 fL 6.2-12.0 [facility] Work Phone: Determination of erythrocyte mean corpuscular volume (MCV)on 10-04-2021 MCV (RBC) [Entitic vol] 91.4 fL 80-94 [facility] Work Phone: Hematocrit Auto (Bld) [Volum e fraction]on 10-04-2021 Hematocrit (Bld) [Volume fraction] 41.3 % 40-54 [facility] Work Phone: Laboratory - Hematology and Cell countson 10-04-2021 Erythrocyte distribution width (RBC) [Entitic vol] 42.2 fL 35.1-43.9 [facility] Work Phone: Erythrocyte distribution width (RBC) [Ratio] 12.8 % 11.6-14.6 [facility] Work Phone: Immature granulocytes/100 WBC (Bld) 0.400 % 0.0-0.9 [facility] Work Phone: Comment on above: IG% - Immature Granu locytes (promyelocytes, myelocytes and metamyelocytes) > 1% indicates that a LEFT SHIFT is Present. MCH (RBC) [Entitic mass] 30.8 pg 27.0-32.0 [facility] Work Phone: Nucleated RBC/100 WBC (Bld) [Ratio] 0 % 0-5 [facility] Work Phone: MCHC Auto (RBC) [Mass/Vol]on 10-04-2021 MCHC (RBC) [Mass/Vol] 33.7 g/dL 32-36 [facility]: Platelets bldon 10-04-2021 Platelets (Bld) [#/Vol] 179 10*3/uL 150-450 [facility] Work Phone: Absolute lymphocyte counton 09-28-2021 Lymphocytes Auto (Unsp spec) [#/Vol] 2.10 10*3/uL 0.83-4.51 [facility] Work Phone: Basophil percentageon 2021 Basophils/100 WBC (Bld) 0.4 % 0-1 [facility] Work Phone: Eosinophils/100 WBC (Bld) 0.3 % 0-5 [facility] Work Phone: Neutrophils (Bld) [#/Vol] 4.3 10*3/uL 2.0-7.7 [facility] Work Phone: Neutrophils/100 WBC (Bld) 59.9 % 47-70 [facility] Work Phone: WBC (Bld) [#/Vol] 7.2 10*3/uL 4.4-11.0 [facility] Work Phone: [phone] Blood erythrocytes count (nu mber/volume)on 09-28-2021 RBC (Bld) [#/Vol] 4.34 10*6/uL 4.6-6.2 [facility]: [phone] Blood hemoglobin measurement (mass/volume)on 09-28-2021 Hemoglobin (Bld) [Mass/Vol] 13.3 g/dL 13.0-16.5 [facility] Work Phone: Blood lymphocytes/100 leukoc yteson 09-28-2021 Lymphocytes/100 WBC (Bld) 29.3 % 19-41 [facility] Work Phone: Blood monocytes/100 leukocyt eson 09-28-2021 Monocytes/100 WBC (Bld) 9.8 % 0-10 [facility] Work Phone: Blood platelet mean volumeon 05-31-2022 Platelet mean volume (Bld) [Entitic vol] 10.7 fL 6.2-12.0 [facility] Work Phone: Determination of erythrocyte mean corpuscular volume (MCV)on 09-28-2021 MCV (RBC) [Entitic vol] 91.2 fL 80-94 [facility] Work Phone: Hematocrit Auto (Bld) [Volum e fraction]on 09-28-2021 Hematocrit (Bld) [Volume fraction] 39.6 % 40-54 [facility] Work Phone: Laboratory - Hematology and Cell countson 09-28-2021 Erythrocyte distribution width (RBC) [Entitic vol] 41.8 fL 35.1-43.9 [facility] Work Phone: Erythrocyte distribution width (RBC) [Ratio] 12.6 % 11.6-14.6 [facility] Work Phone: Immature granulocytes/100 WBC (Bld) 0.300 % 0.0-0.9 [facility] Work Phone: Comment on above: IG% - Immature Granu locytes (promyelocytes, myelocytes and metamyelocytes) > 1% indicates that a LEFT SHIFT is Present. MCH (RBC) [Entitic mass] 30.6 pg 27.0-32.0 [facility] Work Phone: Nucleated RBC/100 WBC (Bld) [Ratio] 0 % 0-5 [facility] Work Phone: MCHC Auto (RBC) [Mass/Vol]on 09-28-2021 MCHC (RBC) [Mass/Vol] 33.6 g/dL 32-36 [facility] Work Phone: [phone] Platelets bldon 09-28-2021 Platelets (Bld) [#/Vol] 181 10*3/uL 150-450 [facility] Work Phone: Absolute lymphocyte counton 09-20-2021 Lymphocytes Auto (Unsp spec) [#/Vol] 1.79 10*3/uL 0.83-4.51 [facility] Work Phone: Basophil percentageon 2021 Basophils/100 WBC (Bld) 0.4 % 0-1 [facility] Work Phone: Eosinophils/100 WBC (Bld) 0.3 % 0-5 [facility] Work Phone: Neutrophils (Bld) [#/Vol] 4.1 10*3/uL 2.0-7.7 [facility] Work Phone: Neutrophils/100 WBC (Bld) 61.3 % 47-70 [facility] Work Phone: WBC (Bld) [#/Vol] 6.7 10*3/uL 4.4-11.0 [facility] Work Phone: Blood erythrocytes count (nu mber/volume)on 09-20-2021 RBC (Bld) [#/Vol] 4.32 10*6/uL 4.6-6.2 [facility]: Blood hemoglobin measurement (mass/volume)on 09-20-2021 Hemoglobin (Bld) [Mass/Vol] 13.6 g/dL 13.0-16.5 [facility] Work Phone: [phone] Blood lymphocytes/100 leukoc yteson 09-20-2021 Lymphocytes/100 WBC (Bld) 26.8 % 19-41 [facility] Work Phone: Blood monocytes/100 leukocyt eson 09-20-2021 Monocytes/100 WBC (Bld) 10.8 % 0-10 [facility] Work Phone: [phone] Blood platelet mean volumeon 09-20-2021 Platelet mean volume (Bld) [Entitic vol] 10.7 fL 6.2-12.0 [facility] Work Phone: Determination of erythrocyte mean corpuscular volume (MCV)on 09-20-2021 MCV (RBC) [Entitic vol] 93.1 fL 80-94 [facility] Work Phone: Hematocrit Auto (Bld) [Volum e fraction]on 09-20-2021 Hematocrit (Bld) [Volume fraction] 40.2 % 40-54 [facility] Work Phone: Laboratory - Hematology and Cell countson 09-20-2021 Erythrocyte distribution width (RBC) [Entitic vol] 43.0 fL 35.1-43.9 [facility] Work Phone: Erythrocyte distribution width (RBC) [Ratio] 12.6 % 11.6-14.6 [facility] Work Phone: Immature granulocytes/100 WBC (Bld) 0.400 % 0.0-0.9 [facility] Work Phone: Comment on above: IG% - Immature Granu locytes (promyelocytes, myelocytes and metamyelocytes) > 1% indicates that a LEFT SHIFT is Present. MCH (RBC) [Entitic mass] 31.5 pg 27.0-32.0 [facility] Work Phone: Nucleated RBC/100 WBC (Bld) [Ratio] 0 % 0-5 [facility] Work Phone: MCHC Auto (RBC) [Mass/Vol]on 09-20-2021 MCHC (RBC) [Mass/Vol] 33.8 g/dL 32-36 [facility] Work Phone: Platelets bldon 09-20-2021 Platelets (Bld) [#/Vol] 170 10*3/uL 150-450 [facility] Work Phone: Absolute lymphocyte counton 09-13-2021 Lymphocytes Auto (Unsp spec) [#/Vol] 1.85 10*3/uL 0.83-4.51 [facility] Work Phone: Basophil percentageon 2021 Basophils/100 WBC (Bld) 0.6 % 0-1 [facility] Work Phone: Eosinophils/100 WBC (Bld) 0.3 % 0-5 [facility] Work Phone: Neutrophils (Bld) [#/Vol] 4.3 10*3/uL 2.0-7.7 [facility] Work Phone: Neutrophils/100 WBC (Bld) 63.1 % 47-70 [facility] Work Phone: WBC (Bld) [#/Vol] 6.7 10*3/uL 4.4-11.0 [facility]: Blood erythrocytes count (nu mber/volume)on 09-13-2021 RBC (Bld) [#/Vol] 4.63 10*6/uL 4.6-6.2 [facility] Work Phone: Blood hemoglobin measurement (mass/volume)on 09-13-2021 Hemoglobin (Bld) [Mass/Vol] 14.2 g/dL 13.0-16.5 [facility] Work Phone: Blood lymphocytes/100 leukoc yteson 09-13-2021 Lymphocytes/100 WBC (Bld) 27.5 % 19-41 [facility] Work Phone: Blood monocytes/100 leukocyt eson 09-13-2021 Monocytes/100 WBC (Bld) 8.2 % 0-10 [facility] Work Phone: Blood platelet mean volumeon 09-13-2021 Platelet mean volume (Bld) [Entitic vol] 11.0 fL 6.2-12.0 [facility] Work Phone: Determination of erythrocyte mean corpuscular volume (MCV)on 09-13-2021 MCV (RBC) [Entitic vol] 93.5 fL 80-94 [facility] Work Phone: Hematocrit Auto (Bld) [Volum e fraction]on 09-13-2021 Hematocrit (Bld) [Volume fraction] 43.3 % 40-54 [facility] Work Phone: Laboratory - Hematology and Cell countson 09-13-2021 Erythrocyte distribution width (RBC) [Entitic vol] 43.0 fL 35.1-43.9 [facility] Work Phone: Erythrocyte distribution width (RBC) [Ratio] 12.6 % 11.6-14.6 [facility] Work Phone: Immature granulocytes/100 WBC (Bld) 0.300 % 0.0-0.9 [facility] Work Phone: Comment on above: IG% - Immature Granu locytes (promyelocytes, myelocytes and metamyelocytes) > 1% indicates that a LEFT SHIFT is Present. MCH (RBC) [Entitic mass] 30.7 pg 27.0-32.0 [facility] Work Phone: Nucleated RBC/100 WBC (Bld) [Ratio] 0 % 0-5 [facility] Work Phone: MCHC Auto (RBC) [Mass/Vol]on 09-13-2021 MCHC (RBC) [Mass/Vol] 32.8 g/dL 32-36 [facility] Work [facility]: Platelets bldon 09-13-2021 Platelets (Bld) [#/Vol] 188 10*3/uL 150-450 [facility] Work Phone: Absolute lymphocyte counton 09-06-2021 Lymphocytes Auto (Unsp spec) [#/Vol] 1.86 10*3/uL 0.83-4.51 [facility] Work Phone: Basophil percentageon 2021 Basophils/100 WBC (Bld) 0.7 % 0-1 [facility] Work Phone: Eosinophils/100 WBC (Bld) 0.3 % 0-5 [facility] Work Phone: Neutrophils (Bld) [#/Vol] 4.4 10*3/uL 2.0-7.7 [facility] Work Phone: Neutrophils/100 WBC (Bld) 62.6 % 47-70 [facility] Work Phone: WBC (Bld) [#/Vol] 7.0 10*3/uL 4.4-11.0 [facility] Work [facility]: Blood erythrocytes count (nu mber/volume)on 09-06-2021 RBC (Bld) [#/Vol] 4.51 10*6/uL 4.6-6.2 [facility] Work [facility]: Blood hemoglobin measurement (mass/volume)on 09-06-2021 Hemoglobin (Bld) [Mass/Vol] 13.8 g/dL 13.0-16.5 [facility] Work Phone: Blood lymphocytes/100 leukoc yteson 09-06-2021 Lymphocytes/100 WBC (Bld) 26.5 % 19-41 [facility] Work Phone: Blood monocytes/100 leukocyt eson 09-06-2021 Monocytes/100 WBC (Bld) 9.5 % 0-10 [facility] Work Phone: Blood platelet mean volumeon 09-06-2021 Platelet mean volume (Bld) [Entitic vol] 10.7 fL 6.2-12.0 [facility] Work Phone: Determination of erythrocyte mean corpuscular volume (MCV)on 09-06-2021 MCV (RBC) [Entitic vol] 92.9 fL 80-94 [facility] Work Phone: Hematocrit Auto (Bld) [Volum e fraction]on 09-06-2021 Hematocrit (Bld) [Volume fraction] 41.9 % 40-54 [facility] Work Phone: Laboratory - Hematology and Cell countson 09-06-2021 Erythrocyte distribution width (RBC) [Entitic vol] 43.0 fL 35.1-43.9 [facility] Work Phone: Erythrocyte distribution width (RBC) [Ratio] 12.7 % 11.6-14.6 [facility] Work Phone: Immature granulocytes/100 WBC (Bld) 0.400 % 0.0-0.9 [facility] Work Phone: Comment on above: IG% - Immature Granu locytes (promyelocytes, myelocytes and metamyelocytes) > 1% indicates that a LEFT SHIFT is Present. MCH (RBC) [Entitic mass] 30.6 pg 27.0-32.0 [facility] Work Phone: Nucleated RBC/100 WBC (Bld) [Ratio] 0 % 0-5 [facility] Work Phone: MCHC Auto (RBC) [Mass/Vol]on 09-06-2021 MCHC (RBC) [Mass/Vol] 32.9 g/dL 32-36 [facility] Work Phone: Platelets bldon 09-06-2021 Platelets (Bld) [#/Vol] 189 10*3/uL 150-450 [facility] Work Phone: [phone] Absolute lymphocyte counton 08-30-2021 Lymphocytes Auto (Unsp spec) [#/Vol] 1.44 10*3/uL 0.83-4.51 [facility] Work Phone: Basophil percentageon 2021 Basophils/100 WBC (Bld) 0.3 % 0-1 [facility] Work Phone: Eosinophils/100 WBC (Bld) 0.2 % 0-5 [facility] Work Phone: Neutrophils (Bld) [#/Vol] 9.6 10*3/uL 2.0-7.7 [facility] Work Phone: Neutrophils/100 WBC (Bld) 80.4 % 47-70 [facility] Work Phone: WBC (Bld) [#/Vol] 12.0 10*3/uL 4.4-11.0 [facility] Work Phone: Blood erythrocytes count (nu mber/volume)on 08-30-2021 RBC (Bld) [#/Vol] 4.52 10*6/uL 4.6-6.2 [facility] Work [facility]: Blood hemoglobin measurement (mass/volume)on 08-30-2021 Hemoglobin (Bld) [Mass/Vol] 13.9 g/dL 13.0-16.5 [facility] Work Phone: Blood lymphocytes/100 leukoc yteson 08-30-2021 Lymphocytes/100 WBC (Bld) 12.0 % 19-41 [facility] Work Phone: Blood monocytes/100 leukocyt eson 08-30-2021 Monocytes/100 WBC (Bld) 6.7 % 0-10 [facility] Work Phone: Blood platelet mean volumeon 08-30-2021 Platelet mean volume (Bld) [Entitic vol] 11.3 fL 6.2-12.0 [facility] Work Phone: Determination of erythrocyte mean corpuscular volume (MCV)on 08-30-2021 MCV (RBC) [Entitic vol] 92.7 fL 80-94 [facility] Work Phone: Hematocrit Auto (Bld) [Volum e fraction]on 08-30-2021 Hematocrit (Bld) [Volume fraction] 41.9 % 40-54 [facility] Work Phone: Laboratory - Hematology and Cell countson 08-30-2021 Erythrocyte distribution width (RBC) [Entitic vol] 42.6 fL 35.1-43.9 [facility] Work Phone: Erythrocyte distribution width (RBC) [Ratio] 12.6 % 11.6-14.6 [facility] Work Phone: Immature granulocytes/100 WBC (Bld) 0.400 % 0.0-0.9 [facility] Work Phone: Comment on above: IG% - Immature Granu locytes (promyelocytes, myelocytes and metamyelocytes) > 1% indicates that a LEFT SHIFT is Present. MCH (RBC) [Entitic mass] 30.8 pg 27.0-32.0 [facility] Work Phone: Nucleated RBC/100 WBC (Bld) [Ratio] 0 % 0-5 [facility] Work Phone: MCHC Auto (RBC) [Mass/Vol]on 08-30-2021 MCHC (RBC) [Mass/Vol] 33.2 g/dL 32-36 [facility] Work Phone: Platelets bldon 08-30-2021 Platelets (Bld) [#/Vol] 200 10*3/uL 150-450 [facility] Work Phone: [phone] Absolute lymphocyte counton 08-23-2021 Lymphocytes Auto (Unsp spec) [#/Vol] 1.91 10*3/uL 0.83-4.51 [facility] Work Phone: [phone] Basophil percentageon 2021 Basophils/100 WBC (Bld) 0.4 % 0-1 [facility] Work Phone: [phone] Eosinophils/100 WBC (Bld) 0.3 % 0-5 [facility] Work Phone: [phone] Neutrophils (Bld) [#/Vol] 4.2 10*3/uL 2.0-7.7 [facility] Work Phone: Neutrophils/100 WBC (Bld) 62.3 % 47-70 [facility] Work Phone: [phone] WBC (Bld) [#/Vol] 6.8 10*3/uL 4.4-11.0 [facility] Work Phone: Blood erythrocytes count (nu mber/volume)on 08-23-2021 RBC (Bld) [#/Vol] 4.46 10*6/uL 4.6-6.2 [facility] Work Phone: Blood hemoglobin measurement (mass/volume)on 08-23-2021 Hemoglobin (Bld) [Mass/Vol] 13.7 g/dL 13.0-16.5 [facility] Work Phone: [phone] Blood lymphocytes/100 leukoc yteson 08-23-2021 Lymphocytes/100 WBC (Bld) 28.3 % 19-41 [facility] Work Phone: Blood monocytes/100 leukocyt eson 08-23-2021 Monocytes/100 WBC (Bld) 8.1 % 0-10 [facility] Work Phone: Blood platelet mean volumeon 08-23-2021 Platelet mean volume (Bld) [Entitic vol] 10.6 fL 6.2-12.0 [facility] Work Phone: Determination of erythrocyte mean corpuscular volume (MCV)on 08-23-2021 MCV (RBC) [Entitic vol] 93.0 fL 80-94 [facility] Work Phone: Hematocrit Auto (Bld) [Volum e fraction]on 08-23-2021 Hematocrit (Bld) [Volume fraction] 41.5 % 40-54 [facility] Work Phone: Laboratory - Hematology and Cell countson 08-23-2021 Erythrocyte distribution width (RBC) [Entitic vol] 42.4 fL 35.1-43.9 [facility] Work Phone: Erythrocyte distribution width (RBC) [Ratio] 12.5 % 11.6-14.6 [facility] Work Phone: Immature granulocytes/100 WBC (Bld) 0.600 % 0.0-0.9 [facility] Work Phone: Comment on above: IG% - Immature Granu locytes (promyelocytes, myelocytes and metamyelocytes) > 1% indicates that a LEFT SHIFT is Present. MCH (RBC) [Entitic mass] 30.7 pg 27.0-32.0 [facility] Work Phone: Nucleated RBC/100 WBC (Bld) [Ratio] 0 % 0-5 [facility] Work Phone: MCHC Auto (RBC) [Mass/Vol]on 08-23-2021 MCHC (RBC) [Mass/Vol] 33.0 g/dL 32-36 [facility] Work Phone: Platelets bldon 08-23-2021 Platelets (Bld) [#/Vol] 198 10*3/uL 150-450 [facility] Work Phone: Basophil percentageon 2021 Basophil percentage 0 SEEN /hpf 0-5 [facility] Work Phone: Bilirubin Test strip Ql (U)o n 08-18-2021 Bilirubin Ql (U) Negative Negative [facility] Work Phone: Culture, urineon 08-18-2021 Bacteria identified Cx Nom (U) Culture exhibits no growth. [facility] Work Phone: Ketones Test strip Ql (U)on 08-18-2021 Ketones Ql (U) Negative Negative [facility] Work Phone: Mucus LM Ql (Urine sed)on Mucus Ql (Urine sed) 0 SEEN /hpf [facility] Work Phone: Nitrite Test strip Ql (U)on 08-18-2021 Nitrite Ql (U) Negative Negative [facility] Work Phone: Protein Test strip Ql (U)on 08-18-2021 Protein Ql (U) Negative Negative [facility] Work Phone: Squamous epithelial cells de tection in urine sediment by light microscopyon 08-18-2021 Epithelial cells.squamous LM Ql (Urine sed) 0 SEEN /hpf 0-5 [facility] Work Phone: Urine blood detectionon --2021 RBC Ql (U) Negative Negative [facility] Work Phone: RBC Ql (U) 0 SEEN /hpf 0-5 [facility] Work Phone: Urine clarityon 08-18-2021 Clarity (U) Clear Clear [facility] Work Phone: Urine color determinationon 08-18-2021 Color (U) Yellow Yellow [facility] Work Phone: Urine glucose detectionon Glucose Ql (U) Normal mg/dl Normal [facility] Work Phone: Urine leukocyte esterase det ection by dipstickon 08-18-2021 Leukocyte esterase Test strip Ql (U) Negative Negative [facility] Work Phone: Urine pHon 08-18-2021 pH (U) 7.0 [pH] 5.0 - 8.0 [facility] Work Phone: Urine sediment bacteria coun t by microscopy (number/high power field)on 08-18-2021 Bacteria LM.HPF (Urine sed) [#/Area] 0 /[HPF] None Seen [facility] Work Phone: Urine specific gravity measu rementon 08-18-2021 Specific gravity (U) [Rel density] 1.010 1.002-1.030 [facility] Work Phone: Urobilinogen Auto test strip Ql (U)on 08-18-2021 Urobilinogen Ql (U) 4 mg/dl Normal [facility] Work Phone: Absolute lymphocyte counton 08-16-2021 Lymphocytes Auto (Unsp spec) [#/Vol] 1.71 10*3/uL 0.83-4.51 [facility] Work Phone: Basophil percentageon 2021 Basophils/100 WBC (Bld) 0.3 % 0-1 [facility] Work Phone: Eosinophils/100 WBC (Bld) 0.2 % 0-5 [facility] Work Phone: Neutrophils (Bld) [#/Vol] 8.6 10*3/uL 2.0-7.7 [facility] Work Phone: Neutrophils/100 WBC (Bld) 76.8 % 47-70 [facility] Work Phone: WBC (Bld) [#/Vol] 11.2 10*3/uL 4.4-11.0 [facility] Work Phone: Blood erythrocytes count (nu mber/volume)on 08-16-2021 RBC (Bld) [#/Vol] 4.42 10*6/uL 4.6-6.2 [facility] Work Phone: Blood hemoglobin measurement (mass/volume)on 08-16-2021 Hemoglobin (Bld) [Mass/Vol] 13.4 g/dL 13.0-16.5 [facility] Work Phone: Blood lymphocytes/100 leukoc yteson 08-16-2021 Lymphocytes/100 WBC (Bld) 15.2 % 19-41 [facility] Work Phone: Blood monocytes/100 leukocyt eson 08-16-2021 Monocytes/100 WBC (Bld) 7.1 % 0-10 [facility] Work Phone: Blood platelet mean volumeon 08-16-2021 Platelet mean volume (Bld) [Entitic vol] 11.0 fL 6.2-12.0 [facility] Work Phone: Determination of erythrocyte mean corpuscular volume (MCV)on 08-16-2021 MCV (RBC) [Entitic vol] 91.9 fL 80-94 [facility] Work Phone: Hematocrit Auto (Bld) [Volum e fraction]on 08-16-2021 Hematocrit (Bld) [Volume fraction] 40.6 % 40-54 [facility] Work Phone: Laboratory - Hematology and Cell countson 08-16-2021 Erythrocyte distribution width (RBC) [Entitic vol] 43.0 fL 35.1-43.9 [facility] Work Phone: Erythrocyte distribution width (RBC) [Ratio] 12.7 % 11.6-14.6 [facility] Work Phone: Immature granulocytes/100 WBC (Bld) 0.400 % 0.0-0.9 [facility] Work Phone: Comment on above: IG% - Immature Granu locytes (promyelocytes, myelocytes and metamyelocytes) > 1% indicates that a LEFT SHIFT is Present. MCH (RBC) [Entitic mass] 30.3 pg 27.0-32.0 [facility] Work Phone: Nucleated RBC/100 WBC (Bld) [Ratio] 0 % 0-5 [facility] Work Phone: MCHC Auto (RBC) [Mass/Vol]on 08-16-2021 MCHC (RBC) [Mass/Vol] 33.0 g/dL 32-36 [facility]: Platelets bldon 08-16-2021 Platelets (Bld) [#/Vol] 187 10*3/uL 150-450 [facility] Work Phone: Absolute lymphocyte counton 08-09-2021 Lymphocytes Auto (Unsp spec) [#/Vol] 1.78 10*3/uL 0.83-4.51 [facility] Work Phone: Basophil percentageon 2021 Basophils/100 WBC (Bld) 0.5 % 0-1 [facility] Work Phone: Eosinophils/100 WBC (Bld) 0.1 % 0-5 [facility] Work Phone: Neutrophils (Bld) [#/Vol] 6.0 10*3/uL 2.0-7.7 [facility] Work Phone: Neutrophils/100 WBC (Bld) 71.3 % 47-70 [facility] Work Phone: WBC (Bld) [#/Vol] 8.4 10*3/uL 4.4-11.0 [facility]: Blood erythrocytes count (nu mber/volume)on 08-09-2021 RBC (Bld) [#/Vol] 4.37 10*6/uL 4.6-6.2 [facility] Work Phone: Blood hemoglobin measurement (mass/volume)on 08-09-2021 Hemoglobin (Bld) [Mass/Vol] 13.5 g/dL 13.0-16.5 [facility] Work Phone: Blood lymphocytes/100 leukoc yteson 08-09-2021 Lymphocytes/100 WBC (Bld) 21.2 % 19-41 [facility] Work Phone: Blood monocytes/100 leukocyt eson 08-09-2021 Monocytes/100 WBC (Bld) 6.5 % 0-10 [facility] Work Phone: Blood platelet mean volumeon 08-09-2021 Platelet mean volume (Bld) [Entitic vol] 11.1 fL 6.2-12.0 [facility] Work Phone: Determination of erythrocyte mean corpuscular volume (MCV)on 08-09-2021 MCV (RBC) [Entitic vol] 91.3 fL 80-94 [facility] Work Phone: Hematocrit Auto (Bld) [Volum e fraction]on 08-09-2021 Hematocrit (Bld) [Volume fraction] 39.9 % 40-54 [facility] Work Phone: Laboratory - Hematology and Cell countson 08-09-2021 Erythrocyte distribution width (RBC) [Entitic vol] 41.4 fL 35.1-43.9 [facility] Work Phone: Erythrocyte distribution width (RBC) [Ratio] 12.5 % 11.6-14.6 [facility] Work Phone: Immature granulocytes/100 WBC (Bld) 0.400 % 0.0-0.9 [facility] Work Phone: Comment on above: IG% - Immature Granu locytes (promyelocytes, myelocytes and metamyelocytes) > 1% indicates that a LEFT SHIFT is Present. MCH (RBC) [Entitic mass] 30.9 pg 27.0-32.0 [facility] Work Phone: Nucleated RBC/100 WBC (Bld) [Ratio] 0 % 0-5 [facility] Work Phone: MCHC Auto (RBC) [Mass/Vol]on 08-09-2021 MCHC (RBC) [Mass/Vol] 33.8 g/dL 32-36 [facility] Work Phone: Platelets bldon 08-09-2021 Platelets (Bld) [#/Vol] 177 10*3/uL 150-450 [facility] Work Phone: Absolute lymphocyte counton 08-02-2021 Lymphocytes Auto (Unsp spec) [#/Vol] 1.69 10*3/uL 0.83-4.51 [facility] Work Phone: Basophil percentageon 2021 Basophils/100 WBC (Bld) 0.3 % 0-1 [facility] Work Phone: Eosinophils/100 WBC (Bld) 0.3 % 0-5 [facility] Work Phone: Neutrophils (Bld) [#/Vol] 3.8 10*3/uL 2.0-7.7 [facility] Work Phone: Neutrophils/100 WBC (Bld) 61.9 % 47-70 [facility] Work Phone: WBC (Bld) [#/Vol] 6.1 10*3/uL 4.4-11.0 [facility] Work Phone: Blood erythrocytes count (nu mber/volume)on 08-02-2021 RBC (Bld) [#/Vol] 4.54 10*6/uL 4.6-6.2 [facility]: Blood hemoglobin measurement (mass/volume)on 08-02-2021 Hemoglobin (Bld) [Mass/Vol] 13.8 g/dL 13.0-16.5 [facility] Work Phone: Blood lymphocytes/100 leukoc yteson 08-02-2021 Lymphocytes/100 WBC (Bld) 27.7 % 19-41 [facility] Work Phone: [phone] Blood monocytes/100 leukocyt eson 08-02-2021 Monocytes/100 WBC (Bld) 9.5 % 0-10 [facility] Work Phone: Blood platelet mean volumeon 08-02-2021 Platelet mean volume (Bld) [Entitic vol] 11.2 fL 6.2-12.0 [facility] Work Phone: Determination of erythrocyte mean corpuscular volume (MCV)on 08-02-2021 MCV (RBC) [Entitic vol] 90.1 fL 80-94 [facility] Work Phone: Hematocrit Auto (Bld) [Volum e fraction]on 08-02-2021 Hematocrit (Bld) [Volume fraction] 40.9 % 40-54 [facility] Work Phone: Laboratory - Hematology and Cell countson 08-02-2021 Erythrocyte distribution width (RBC) [Entitic vol] 40.3 fL 35.1-43.9 [facility] Work Phone: Erythrocyte distribution width (RBC) [Ratio] 12.4 % 11.6-14.6 [facility] Work Phone: Immature granulocytes/100 WBC (Bld) 0.300 % 0.0-0.9 [facility] Work Phone: Comment on above: IG% - Immature Granu locytes (promyelocytes, myelocytes and metamyelocytes) > 1% indicates that a LEFT SHIFT is Present. MCH (RBC) [Entitic mass] 30.4 pg 27.0-32.0 [facility] Work Phone: Nucleated RBC/100 WBC (Bld) [Ratio] 0 % 0-5 [facility] Work Phone: MCHC Auto (RBC) [Mass/Vol]on 08-02-2021 MCHC (RBC) [Mass/Vol] 33.7 g/dL 32-36 [facility] Work [facility]: Platelets bldon 08-02-2021 Platelets (Bld) [#/Vol] 192 10*3/uL 150-450 [facility] Work Phone: [phone] Absolute lymphocyte counton 07-26-2021 Lymphocytes Auto (Unsp spec) [#/Vol] 1.83 10*3/uL 0.83-4.51 [facility] Work Phone: Basophil percentageon 2021 Basophils/100 WBC (Bld) 0.5 % 0-1 [facility] Work Phone: [phone] Eosinophils/100 WBC (Bld) 0.3 % 0-5 [facility] Work Phone: [phone] Neutrophils (Bld) [#/Vol] 3.3 10*3/uL 2.0-7.7 [facility] Work Phone: [phone] Neutrophils/100 WBC (Bld) 58.1 % 47-70 [facility] Work Phone: [phone] WBC (Bld) [#/Vol] 5.7 10*3/uL 4.4-11.0 [facility] Work Phone: Blood erythrocytes count (nu mber/volume)on 07-26-2021 RBC (Bld) [#/Vol] 4.21 10*6/uL 4.6-6.2 [facility] Work [facility]: Blood hemoglobin measurement (mass/volume)on 07-26-2021 Hemoglobin (Bld) [Mass/Vol] 12.9 g/dL 13.0-16.5 [facility] Work Phone: Blood lymphocytes/100 leukoc yteson 07-26-2021 Lymphocytes/100 WBC (Bld) 31.9 % 19-41 [facility] Work Phone: Blood monocytes/100 leukocyt eson 07-26-2021 Monocytes/100 WBC (Bld) 8.9 % 0-10 [facility] Work Phone: Blood platelet mean volumeon 07-26-2021 Platelet mean volume (Bld) [Entitic vol] 11.5 fL 6.2-12.0 [facility] Work Phone: Determination of erythrocyte mean corpuscular volume (MCV)on 07-26-2021 MCV (RBC) [Entitic vol] 90.7 fL 80-94 [facility] Work Phone: Hematocrit Auto (Bld) [Volum e fraction]on 07-26-2021 Hematocrit (Bld) [Volume fraction] 38.2 % 40-54 [facility] Work Phone: Laboratory - Hematology and Cell countson 07-26-2021 Erythrocyte distribution width (RBC) [Entitic vol] 41.2 fL 35.1-43.9 [facility] Work Phone: Erythrocyte distribution width (RBC) [Ratio] 12.5 % 11.6-14.6 [facility] Work Phone: Immature granulocytes/100 WBC (Bld) 0.300 % 0.0-0.9 [facility] Work Phone: Comment on above: IG% - Immature Granu locytes (promyelocytes, myelocytes and metamyelocytes) > 1% indicates that a LEFT SHIFT is Present. MCH (RBC) [Entitic mass] 30.6 pg 27.0-32.0 [facility] Work Phone: Nucleated RBC/100 WBC (Bld) [Ratio] 0 % 0-5 [facility] Work Phone: MCHC Auto (RBC) [Mass/Vol]on 07-26-2021 MCHC (RBC) [Mass/Vol] 33.8 g/dL 32-36 [facility] Work [facility]: Platelets bldon 07-26-2021 Platelets (Bld) [#/Vol] 180 10*3/uL 150-450 [facility] Work Phone: Absolute lymphocyte counton 07-19-2021 Lymphocytes Auto (Unsp spec) [#/Vol] 2.04 10*3/uL 0.83-4.51 [facility] Work Phone: Basophil percentageon 2021 Basophils/100 WBC (Bld) 0.3 % 0-1 [facility] Work Phone: Eosinophils/100 WBC (Bld) 0.4 % 0-5 [facility] Work Phone: Neutrophils (Bld) [#/Vol] 4.0 10*3/uL 2.0-7.7 [facility] Work Phone: Neutrophils/100 WBC (Bld) 59.2 % 47-70 [facility] Work Phone: WBC (Bld) [#/Vol] 6.7 10*3/uL 4.4-11.0 [facility] Work Phone: Blood erythrocytes count (nu mber/volume)on 07-19-2021 RBC (Bld) [#/Vol] 4.53 10*6/uL 4.6-6.2 [facility] Work Phone: [phone] Blood hemoglobin measurement (mass/volume)on 07-19-2021 Hemoglobin (Bld) [Mass/Vol] 14.1 g/dL 13.0-16.5 [facility] Work Phone: Blood lymphocytes/100 leukoc yteson 07-19-2021 Lymphocytes/100 WBC (Bld) 30.5 % 19-41 [facility] Work Phone: Blood monocytes/100 leukocyt eson 07-19-2021 Monocytes/100 WBC (Bld) 9.0 % 0-10 [facility] Work Phone: Blood platelet mean volumeon 07-19-2021 Platelet mean volume (Bld) [Entitic vol] 11.4 fL 6.2-12.0 [facility] Work Phone: Determination of erythrocyte mean corpuscular volume (MCV)on 07-19-2021 MCV (RBC) [Entitic vol] 90.5 fL 80-94 [facility] Work Phone: Hematocrit Auto (Bld) [Volum e fraction]on 07-19-2021 Hematocrit (Bld) [Volume fraction] 41.0 % 40-54 [facility] Work Phone: Laboratory - Hematology and Cell countson 07-19-2021 Erythrocyte distribution width (RBC) [Entitic vol] 41.1 fL 35.1-43.9 [facility] Work Phone: Erythrocyte distribution width (RBC) [Ratio] 12.5 % 11.6-14.6 [facility] Work Phone: Immature granulocytes/100 WBC (Bld) 0.600 % 0.0-0.9 [facility] Work Phone: Comment on above: IG% - Immature Granu locytes (promyelocytes, myelocytes and metamyelocytes) > 1% indicates that a LEFT SHIFT is Present. MCH (RBC) [Entitic mass] 31.1 pg 27.0-32.0 [facility] Work Phone: Nucleated RBC/100 WBC (Bld) [Ratio] 0 % 0-5 [facility] Work Phone: MCHC Auto (RBC) [Mass/Vol]on 07-19-2021 MCHC (RBC) [Mass/Vol] 34.4 g/dL 32-36 [facility] Work [facility]: Platelets bldon 07-19-2021 Platelets (Bld) [#/Vol] 193 10*3/uL 150-450 [facility] Work Phone: Absolute lymphocyte counton 07-12-2021 Lymphocytes Auto (Unsp spec) [#/Vol] 1.42 10*3/uL 0.83-4.51 [facility] Work Phone: Basophil percentageon 2021 Basophils/100 WBC (Bld) 0.6 % 0-1 [facility] Work Phone: Eosinophils/100 WBC (Bld) 0.3 % 0-5 [facility] Work Phone: Neutrophils (Bld) [#/Vol] 4.7 10*3/uL 2.0-7.7 [facility] Work Phone: Neutrophils/100 WBC (Bld) 67.3 % 47-70 [facility] Work Phone: WBC (Bld) [#/Vol] 7.0 10*3/uL 4.4-11.0 [facility] Work Phone: Blood erythrocytes count (nu mber/volume)on 07-12-2021 RBC (Bld) [#/Vol] 4.61 10*6/uL 4.6-6.2 [facility] Work Phone: Blood hemoglobin measurement (mass/volume)on 07-12-2021 Hemoglobin (Bld) [Mass/Vol] 14.4 g/dL 13.0-16.5 [facility] Work Phone: Blood lymphocytes/100 leukoc yteson 07-12-2021 Lymphocytes/100 WBC (Bld) 20.4 % 19-41 [facility] Work Phone: Blood monocytes/100 leukocyt eson 07-12-2021 Monocytes/100 WBC (Bld) 11.1 % 0-10 [facility] Work Phone: Blood platelet mean volumeon 07-12-2021 Platelet mean volume (Bld) [Entitic vol] 11.2 fL 6.2-12.0 [facility] Work Phone: Determination of erythrocyte mean corpuscular volume (MCV)on 07-12-2021 MCV (RBC) [Entitic vol] 91.1 fL 80-94 [facility] Work Phone: Hematocrit Auto (Bld) [Volum e fraction]on 07-12-2021 Hematocrit (Bld) [Volume fraction] 42.0 % 40-54 [facility] Work Phone: Laboratory - Hematology and Cell countson 07-12-2021 Erythrocyte distribution width (RBC) [Entitic vol] 41.4 fL 35.1-43.9 [facility] Work Phone: Erythrocyte distribution width (RBC) [Ratio] 12.6 % 11.6-14.6 [facility] Work Phone: Immature granulocytes/100 WBC (Bld) 0.300 % 0.0-0.9 [facility] Work Phone: Comment on above: IG% - Immature Granu locytes (promyelocytes, myelocytes and metamyelocytes) > 1% indicates that a LEFT SHIFT is Present. MCH (RBC) [Entitic mass] 31.2 pg 27.0-32.0 [facility] Work Phone: Nucleated RBC/100 WBC (Bld) [Ratio] 0 % 0-5 [facility] Work Phone: MCHC Auto (RBC) [Mass/Vol]on 07-12-2021 MCHC (RBC) [Mass/Vol] 34.3 g/dL 32-36 [facility] Work Phone: Platelets bldon 07-12-2021 Platelets (Bld) [#/Vol] 184 10*3/uL 150-450 [facility] Work Phone: Absolute lymphocyte counton 07-05-2021 Lymphocytes Auto (Unsp spec) [#/Vol] 1.55 10*3/uL 0.83-4.51 [facility] Work Phone: Basophil percentageon 2021 Basophils/100 WBC (Bld) 0.4 % 0-1 [facility] Work Phone: Cholesterol [Mass/Vol] 148 mg/dL <200 [facility] Work Phone: Comment on above: <200 mg/dL Desirable 200-240 mg/dL Borderline >240 mg/dL High Risk Eosinophils/100 WBC (Bld) 0.3 % 0-5 [facility] Work Phone: Neutrophils (Bld) [#/Vol] 5.5 10*3/uL 2.0-7.7 [facility] Work Phone: Neutrophils/100 WBC (Bld) 70.9 % 47-70 [facility] Work Phone: Triglyceride [Mass/Vol] 201 mg/dL <199 [facility] Work Phone: Comment on above: The drugs N-Acetylcy steine and Metamizole may falsely depress this assay.Serum Triglycerides Reference Interval Normal <150 mg/dL Borderline high 150 - 199 mg/dL High 200 - 499 mg/dL Very High > or = 500 mg/dL WBC (Bld) [#/Vol] 7.8 10*3/uL 4.4-11.0 [facility] Work Phone: Blood erythrocytes count (nu mber/volume)on 07-05-2021 RBC (Bld) [#/Vol] 4.46 10*6/uL 4.6-6.2 [facility] Work Phone: Blood hemoglobin measurement (mass/volume)on 07-05-2021 Hemoglobin (Bld) [Mass/Vol] 13.4 g/dL 13.0-16.5 [facility] Work Phone: Blood lymphocytes/100 leukoc yteson 07-05-2021 Lymphocytes/100 WBC (Bld) 20.0 % 19-41 [facility] Work Phone: Blood monocytes/100 leukocyt eson 07-05-2021 Monocytes/100 WBC (Bld) 8.1 % 0-10 [facility] Work Phone: Blood platelet mean volumeon 07-05-2021 Platelet mean volume (Bld) [Entitic vol] 11.7 fL 6.2-12.0 [facility] Work Phone: Determination of erythrocyte mean corpuscular volume (MCV)on 07-05-2021 MCV (RBC) [Entitic vol] 91.0 fL 80-94 [facility] Work Phone: Hematocrit Auto (Bld) [Volum e fraction]on 07-05-2021 Hematocrit (Bld) [Volume fraction] 40.6 % 40-54 [facility] Work Phone: Laboratory - Hematology and Cell countson 07-05-2021 Erythrocyte distribution width (RBC) [Entitic vol] 41.9 fL 35.1-43.9 [facility] Work Phone: Erythrocyte distribution width (RBC) [Ratio] 12.8 % 11.6-14.6 [facility] Work Phone: Immature granulocytes/100 WBC (Bld) 0.300 % 0.0-0.9 [facility] Work Phone: Comment on above: IG% - Immature Granu locytes (promyelocytes, myelocytes and metamyelocytes) > 1% indicates that a LEFT SHIFT is Present. MCH (RBC) [Entitic mass] 30.0 pg 27.0-32.0 [facility] Work Phone: Nucleated RBC/100 WBC (Bld) [Ratio] 0 % 0-5 [facility] Work Phone: MCHC Auto (RBC) [Mass/Vol]on 07-05-2021 MCHC (RBC) [Mass/Vol] 33.0 g/dL 32-36 [facility] Work Phone: Platelets bldon 07-05-2021 Platelets (Bld) [#/Vol] 186 10*3/uL 150-450 [facility] Work Phone: Serum or plasma cholesterol in HDL measurement (mass/volume)on 07-05-2021 Cholesterol in HDL [Mass/Vol] 30 mg/dL >40 [facility] Work Phone: Comment on above: The drugs N-Acetylcy steine and Metamizole may falsely depress this assay. Reference Range HDL <40 mg/dL Low HDL Cholesterol HDL >or= 60 mg/dL High HDL Cholesterol Serum or plasma cholesterol in VLDL measurement (mass/volume)on 07-05-2021 Cholesterol in VLDL [Mass/Vol] 40 mg/dL 5-40 [facility] Work Phone: Serum or plasma low density lipoprotein (LDL) cholesterol measurement (mass/volume)on 07-05-2021 Cholesterol in LDL [Mass/Vol] 78 mg/dL 0-130 [facility] Work Phone: Absolute lymphocyte counton 06-28-2021 Lymphocytes Auto (Unsp spec) [#/Vol] 2.01 10*3/uL 0.83-4.51 [facility] Work Phone: Basophil percentageon 2021 Basophils/100 WBC (Bld) 0.5 % 0-1 [facility] Work Phone: Eosinophils/100 WBC (Bld) 0.3 % 0-5 [facility] Work Phone: Neutrophils (Bld) [#/Vol] 3.3 10*3/uL 2.0-7.7 [facility] Work Phone: Neutrophils/100 WBC (Bld) 55.5 % 47-70 [facility] Work Phone: WBC (Bld) [#/Vol] 6.0 10*3/uL 4.4-11.0 [facility] Work Phone: [phone] Blood erythrocytes count (nu mber/volume)on 06-28-2021 RBC (Bld) [#/Vol] 4.32 10*6/uL 4.6-6.2 [facility] Work Phone: Blood hemoglobin measurement (mass/volume)on 06-28-2021 Hemoglobin (Bld) [Mass/Vol] 13.5 g/dL 13.0-16.5 [facility] Work Phone: Blood lymphocytes/100 leukoc yteson 06-28-2021 Lymphocytes/100 WBC (Bld) 33.5 % 19-41 [facility] Work Phone: Blood monocytes/100 leukocyt eson 06-28-2021 Monocytes/100 WBC (Bld) 10.0 % 0-10 [facility] Work Phone: Blood platelet mean volumeon 06-28-2021 Platelet mean volume (Bld) [Entitic vol] 11.8 fL 6.2-12.0 [facility] Work Phone: Determination of erythrocyte mean corpuscular volume (MCV)on 06-28-2021 MCV (RBC) [Entitic vol] 89.8 fL 80-94 [facility] Work Phone: Hematocrit Auto (Bld) [Volum e fraction]on 06-28-2021 Hematocrit (Bld) [Volume fraction] 38.8 % 40-54 [facility] Work Phone: Laboratory - Hematology and Cell countson 06-28-2021 Erythrocyte distribution width (RBC) [Entitic vol] 40.6 fL 35.1-43.9 [facility] Work Phone: Erythrocyte distribution width (RBC) [Ratio] 12.5 % 11.6-14.6 [facility] Work Phone: Immature granulocytes/100 WBC (Bld) 0.200 % 0.0-0.9 [facility] Work Phone: Comment on above: IG% - Immature Granu locytes (promyelocytes, myelocytes and metamyelocytes) > 1% indicates that a LEFT SHIFT is Present. MCH (RBC) [Entitic mass] 31.3 pg 27.0-32.0 [facility] Work Phone: Nucleated RBC/100 WBC (Bld) [Ratio] 0 % 0-5 [facility] Work Phone: MCHC Auto (RBC) [Mass/Vol]on 06-28-2021 MCHC (RBC) [Mass/Vol] 34.8 g/dL 32-36 [facility] Work Phone: Platelets bldon 06-28-2021 Platelets (Bld) [#/Vol] 185 10*3/uL 150-450 [facility] Work Phone: Absolute lymphocyte counton 06-21-2021 Lymphocytes Auto (Unsp spec) [#/Vol] 1.78 10*3/uL 0.83-4.51 [facility] Work Phone: Basophil percentageon 2021 Basophils/100 WBC (Bld) 0.3 % 0-1 [facility] Work Phone: Eosinophils/100 WBC (Bld) 0.4 % 0-5 [facility] Work Phone: Neutrophils (Bld) [#/Vol] 4.2 10*3/uL 2.0-7.7 [facility] Work Phone: Neutrophils/100 WBC (Bld) 62.7 % 47-70 [facility] Work Phone: WBC (Bld) [#/Vol] 6.8 10*3/uL 4.4-11.0 [facility]: Blood erythrocytes count (nu mber/volume)on 06-21-2021 RBC (Bld) [#/Vol] 4.21 10*6/uL 4.6-6.2 [facility]: Blood hemoglobin measurement (mass/volume)on 06-21-2021 Hemoglobin (Bld) [Mass/Vol] 13.3 g/dL 13.0-16.5 [facility] Work Phone: Blood lymphocytes/100 leukoc yteson 06-21-2021 Lymphocytes/100 WBC (Bld) 26.3 % 19-41 [facility] Work Phone: Blood monocytes/100 leukocyt eson 06-21-2021 Monocytes/100 WBC (Bld) 9.9 % 0-10 [facility] Work Phone: Blood platelet mean volumeon 06-21-2021 Platelet mean volume (Bld) [Entitic vol] 11.5 fL 6.2-12.0 [facility] Work Phone: Determination of erythrocyte mean corpuscular volume (MCV)on 06-21-2021 MCV (RBC) [Entitic vol] 91.0 fL 80-94 [facility] Work Phone: Hematocrit Auto (Bld) [Volum e fraction]on 06-21-2021 Hematocrit (Bld) [Volume fraction] 38.3 % 40-54 [facility] Work Phone: Laboratory - Hematology and Cell countson 06-21-2021 Erythrocyte distribution width (RBC) [Entitic vol] 40.2 fL 35.1-43.9 [facility] Work Phone: Erythrocyte distribution width (RBC) [Ratio] 12.2 % 11.6-14.6 [facility] Work Phone: Immature granulocytes/100 WBC (Bld) 0.400 % 0.0-0.9 [facility] Work Phone: Comment on above: IG% - Immature Granu locytes (promyelocytes, myelocytes and metamyelocytes) > 1% indicates that a LEFT SHIFT is Present. MCH (RBC) [Entitic mass] 31.6 pg 27.0-32.0 [facility] Work Phone: Nucleated RBC/100 WBC (Bld) [Ratio] 0 % 0-5 [facility] Work Phone: MCHC Auto (RBC) [Mass/Vol]on 06-21-2021 MCHC (RBC) [Mass/Vol] 34.7 g/dL 32-36 [facility]: Platelets bldon 06-21-2021 Platelets (Bld) [#/Vol] 217 10*3/uL 150-450 [facility] Work Phone: Absolute lymphocyte counton 06-14-2021 Lymphocytes Auto (Unsp spec) [#/Vol] 1.41 10*3/uL 0.83-4.51 [facility] Work Phone: Basophil percentageon 2021 Basophils/100 WBC (Bld) 0.4 % 0-1 [facility] Work Phone: Chloride [Moles/Vol] 106 mmol/L 98-107 [facility] Work Phone: [phone] Eosinophils/100 WBC (Bld) 0.6 % 0-5 [facility] Work Phone: [phone] Glucose [Mass/Vol] 121 mg/dL 74-106 [facility] Work Phone: Comment on above: Fasting Glucose resu lt from 100 to 125 mg/dL suggests IMPAIRED HOMEOSTASIS per A.D.A. criteria. Neutrophils (Bld) [#/Vol] 4.8 10*3/uL 2.0-7.7 [facility] Work Phone: [phone] Neutrophils/100 WBC (Bld) 69.9 % 47-70 [facility] Work Phone: Potassium [Moles/Vol] 3.7 mmol/L 3.5-5.1 [facility] Work Phone: Sodium [Moles/Vol] 140 mmol/L 136-145 [facility] Work Phone: [phone] WBC (Bld) [#/Vol] 6.8 10*3/uL 4.4-11.0 [facility] Work Phone: Blood erythrocytes count (nu mber/volume)on 06-14-2021 RBC (Bld) [#/Vol] 4.78 10*6/uL 4.6-6.2 [facility] Work Phone: Blood hemoglobin measurement (mass/volume)on 06-14-2021 Hemoglobin (Bld) [Mass/Vol] 14.9 g/dL 13.0-16.5 [facility] Work Phone: [phone] Blood lymphocytes/100 leukoc yteson 06-14-2021 Lymphocytes/100 WBC (Bld) 20.8 % 19-41 [facility] Work Phone: [phone] Blood monocytes/100 leukocyt eson 06-14-2021 Monocytes/100 WBC (Bld) 7.7 % 0-10 [facility] Work Phone: Blood platelet mean volumeon 06-14-2021 Platelet mean volume (Bld) [Entitic vol] 11.5 fL 6.2-12.0 [facility] Work Phone: Determination of erythrocyte mean corpuscular volume (MCV)on 06-14-2021 MCV (RBC) [Entitic vol] 89.5 fL 80-94 [facility] Work Phone: Hematocrit Auto (Bld) [Volum e fraction]on 06-14-2021 Hematocrit (Bld) [Volume fraction] 42.8 % 40-54 [facility] Work Phone: Laboratory - Chemistry and C hemistry - challengeon 06-14-2021 CO2 [Moles/Vol] 27.0 mmol/L 21.0-32.0 [facility] Work Phone: Urea nitrogen/Creatinine [Mass ratio] 35.0 mg/mg 10-20 [facility] Work Phone: Laboratory - Hematology and Cell countson 06-14-2021 Erythrocyte distribution width (RBC) [Entitic vol] 39.3 fL 35.1-43.9 [facility] Work Phone: Erythrocyte distribution width (RBC) [Ratio] 12.0 % 11.6-14.6 [facility] Work Phone: Immature granulocytes/100 WBC (Bld) 0.600 % 0.0-0.9 [facility] Work Phone: Comment on above: IG% - Immature Granu locytes (promyelocytes, myelocytes and metamyelocytes) > 1% indicates that a LEFT SHIFT is Present. MCH (RBC) [Entitic mass] 31.2 pg 27.0-32.0 [facility] Work Phone: Nucleated RBC/100 WBC (Bld) [Ratio] 0 % 0-5 [facility] Work Phone: MCHC Auto (RBC) [Mass/Vol]on 06-14-2021 MCHC (RBC) [Mass/Vol] 34.8 g/dL 32-36 [facility] Work Phone: No Panel Informationon 06-14 Estimated GFR (MDRD) Amer 185 mL/min >60 [facility] Work Phone: Comment on above: GFR Calc Estimated GFR (MDRD) Non-Af Amer 153 mL/min >60 [facility] Work Phone: Comment on above: Non- GFR Calc Platelets bldon 06-14-2021 Platelets (Bld) [#/Vol] 223 10*3/uL 150-450 [facility] Work Phone: Serum or plasma calcium gordy urement (mass/volume)on 06-14-2021 Calcium [Mass/Vol] 8.0 mg/dL 8.5-10.1 [facility] Work Phone: Serum or plasma creatinine m easurement (mass/volume)on 06-14-2021 Creatinine [Mass/Vol] 0.57 mg/dL 0.70-1.30 [facility] Work Phone: Comment on above: The validity of the calculated GFR & GFRAA in patients over 70 years has not been determined. Clinical correlation is essential. Serum or plasma urea nitroge n measurement (mass/volume)on 06-14-2021 Urea nitrogen [Mass/Vol] 20 mg/dL 7-18 [facility] Work Phone: Thin prep Papanicolaou smear with manual screeningon 06-14-2021 Thin prep Papanicolaou smear with manual screening 7 5-15 [facility] Work Phone: Absolute lymphocyte counton 06-07-2021 Lymphocytes Auto (Unsp spec) [#/Vol] 1.38 10*3/uL 0.83-4.51 [facility] Work Phone: Basophil percentageon 2021 Basophils/100 WBC (Bld) 0.2 % 0-1 [facility] Work Phone: Eosinophils/100 WBC (Bld) 0.0 % 0-5 [facility] Work Phone: Neutrophils (Bld) [#/Vol] 7.3 10*3/uL 2.0-7.7 [facility] Work Phone: Neutrophils/100 WBC (Bld) 75.3 % 47-70 [facility] Work Phone: WBC (Bld) [#/Vol] 9.7 10*3/uL 4.4-11.0 [facility] Work Phone: Blood erythrocytes count (nu mber/volume)on 06-07-2021 RBC (Bld) [#/Vol] 4.48 10*6/uL 4.6-6.2 [facility] Work Phone: Blood hemoglobin measurement (mass/volume)on 06-07-2021 Hemoglobin (Bld) [Mass/Vol] 13.8 g/dL 13.0-16.5 [facility] Work Phone: Blood lymphocytes/100 leukoc yteson 06-07-2021 Lymphocytes/100 WBC (Bld) 14.2 % 19-41 [facility] Work Phone: Blood monocytes/100 leukocyt eson 06-07-2021 Monocytes/100 WBC (Bld) 10.2 % 0-10 [facility] Work Phone: Blood platelet mean volumeon 06-07-2021 Platelet mean volume (Bld) [Entitic vol] 11.9 fL 6.2-12.0 [facility] Work Phone: Determination of erythrocyte mean corpuscular volume (MCV)on 06-07-2021 MCV (RBC) [Entitic vol] 92.9 fL 80-94 [facility] Work Phone: Hematocrit Auto (Bld) [Volum e fraction]on 06-07-2021 Hematocrit (Bld) [Volume fraction] 41.6 % 40-54 [facility] Work Phone: Laboratory - Hematology and Cell countson 06-07-2021 Erythrocyte distribution width (RBC) [Entitic vol] 43.8 fL 35.1-43.9 [facility] Work Phone: [phone] Erythrocyte distribution width (RBC) [Ratio] 12.8 % 11.6-14.6 [facility] Work Phone: [phone] Immature granulocytes/100 WBC (Bld) 0.100 % 0.0-0.9 [facility] Work Phone: Comment on above: IG% - Immature Granu locytes (promyelocytes, myelocytes and metamyelocytes) > 1% indicates that a LEFT SHIFT is Present. MCH (RBC) [Entitic mass] 30.8 pg 27.0-32.0 [facility] Work Phone: [phone] Nucleated RBC/100 WBC (Bld) [Ratio] 0 % 0-5 [facility] Work Phone: [phone] MCHC Auto (RBC) [Mass/Vol]on 06-07-2021 MCHC (RBC) [Mass/Vol] 33.2 g/dL 32-36 [facility] Work Phone: Platelets bldon 06-07-2021 Platelets (Bld) [#/Vol] 152 10*3/uL 150-450 [facility] Work Phone: Absolute lymphocyte counton 05-31-2021 Lymphocytes Auto (Unsp spec) [#/Vol] 1.72 10*3/uL 0.83-4.51 [facility] Work Phone: Basophil percentageon 2021 Basophils/100 WBC (Bld) 0.7 % 0-1 [facility] Work Phone: Eosinophils/100 WBC (Bld) 1.1 % 0-5 [facility] Work Phone: Neutrophils (Bld) [#/Vol] 3.3 10*3/uL 2.0-7.7 [facility] Work Phone: Neutrophils/100 WBC (Bld) 58.5 % 47-70 [facility] Work Phone: WBC (Bld) [#/Vol] 5.6 10*3/uL 4.4-11.0 [facility] Work Phone: Blood erythrocytes count (nu mber/volume)on 05-31-2021 RBC (Bld) [#/Vol] 4.44 10*6/uL 4.6-6.2 [facility]: Blood hemoglobin measurement (mass/volume)on 05-31-2021 Hemoglobin (Bld) [Mass/Vol] 13.6 g/dL 13.0-16.5 [facility] Work Phone: Blood lymphocytes/100 leukoc yteson 05-31-2021 Lymphocytes/100 WBC (Bld) 30.7 % 19-41 [facility] Work Phone: Blood monocytes/100 leukocyt eson 05-31-2021 Monocytes/100 WBC (Bld) 8.6 % 0-10 [facility] Work Phone: Blood platelet mean volumeon 05-31-2021 Platelet mean volume (Bld) [Entitic vol] 11.2 fL 6.2-12.0 [facility] Work Phone: Determination of erythrocyte mean corpuscular volume (MCV)on 05-31-2021 MCV (RBC) [Entitic vol] 92.1 fL 80-94 [facility] Work Phone: Hematocrit Auto (Bld) [Volum e fraction]on 05-31-2021 Hematocrit (Bld) [Volume fraction] 40.9 % 40-54 [facility] Work Phone: Laboratory - Hematology and Cell countson 05-31-2021 Erythrocyte distribution width (RBC) [Entitic vol] 42.2 fL 35.1-43.9 [facility] Work Phone: Erythrocyte distribution width (RBC) [Ratio] 12.4 % 11.6-14.6 [facility] Work Phone: Immature granulocytes/100 WBC (Bld) 0.400 % 0.0-0.9 [facility] Work Phone: [phone] Comment on above: IG% - Immature Granu locytes (promyelocytes, myelocytes and metamyelocytes) > 1% indicates that a LEFT SHIFT is Present. MCH (RBC) [Entitic mass] 30.6 pg 27.0-32.0 [facility] Work Phone: [phone] Nucleated RBC/100 WBC (Bld) [Ratio] 0 % 0-5 [facility] Work Phone: MCHC Auto (RBC) [Mass/Vol]on 05-31-2021 MCHC (RBC) [Mass/Vol] 33.3 g/dL 32-36 [facility] Work Phone: [phone] Platelets bldon 05-31-2021 Platelets (Bld) [#/Vol] 189 10*3/uL 150-450 [facility] Work Phone: [phone] Absolute lymphocyte counton 05-24-2021 Lymphocytes Auto (Unsp spec) [#/Vol] 1.58 10*3/uL 0.83-4.51 [facility] Work Phone: [phone] Basophil percentageon 2021 Basophils/100 WBC (Bld) 0.8 % 0-1 [facility] Work Phone: Eosinophils/100 WBC (Bld) 2.4 % 0-5 [facility] Work Phone: Neutrophils (Bld) [#/Vol] 3.8 10*3/uL 2.0-7.7 [facility] Work Phone: Neutrophils/100 WBC (Bld) 60.3 % 47-70 [facility] Work Phone: WBC (Bld) [#/Vol] 6.3 10*3/uL 4.4-11.0 [facility] Work Phone: [phone] Blood erythrocytes count (nu mber/volume)on 05-24-2021 RBC (Bld) [#/Vol] 4.50 10*6/uL 4.6-6.2 [facility]: Blood hemoglobin measurement (mass/volume)on 05-24-2021 Hemoglobin (Bld) [Mass/Vol] 13.7 g/dL 13.0-16.5 [facility] Work Phone: Blood lymphocytes/100 leukoc yteson 05-24-2021 Lymphocytes/100 WBC (Bld) 25.0 % 19-41 [facility] Work Phone: Blood monocytes/100 leukocyt eson 05-24-2021 Monocytes/100 WBC (Bld) 11.2 % 0-10 [facility] Work Phone: Blood platelet mean volumeon 05-24-2021 Platelet mean volume (Bld) [Entitic vol] 11.3 fL 6.2-12.0 [facility] Work Phone: Determination of erythrocyte mean corpuscular volume (MCV)on 05-24-2021 MCV (RBC) [Entitic vol] 92.9 fL 80-94 [facility] Work Phone: Hematocrit Auto (Bld) [Volum e fraction]on 05-24-2021 Hematocrit (Bld) [Volume fraction] 41.8 % 40-54 [facility] Work Phone: Laboratory - Hematology and Cell countson 05-24-2021 Erythrocyte distribution width (RBC) [Entitic vol] 42.8 fL 35.1-43.9 [facility] Work Phone: Erythrocyte distribution width (RBC) [Ratio] 12.6 % 11.6-14.6 [facility] Work Phone: Immature granulocytes/100 WBC (Bld) 0.300 % 0.0-0.9 [facility] Work Phone: Comment on above: IG% - Immature Granu locytes (promyelocytes, myelocytes and metamyelocytes) > 1% indicates that a LEFT SHIFT is Present. MCH (RBC) [Entitic mass] 30.4 pg 27.0-32.0 [facility] Work Phone: Nucleated RBC/100 WBC (Bld) [Ratio] 0 % 0-5 [facility] Work Phone: MCHC Auto (RBC) [Mass/Vol]on 05-24-2021 MCHC (RBC) [Mass/Vol] 32.8 g/dL 32-36 [facility] Work Phone: Platelets bldon 05-24-2021 Platelets (Bld) [#/Vol] 207 10*3/uL 150-450 [facility] Work Phone: [phone] Absolute lymphocyte counton 05-17-2021 Lymphocytes Auto (Unsp spec) [#/Vol] 1.59 10*3/uL 0.83-4.51 [facility] Work Phone: [phone] Basophil percentageon 2021 Basophils/100 WBC (Bld) 0.7 % 0-1 [facility] Work Phone: Eosinophils/100 WBC (Bld) 1.7 % 0-5 [facility] Work Phone: Neutrophils (Bld) [#/Vol] 3.5 10*3/uL 2.0-7.7 [facility] Work Phone: Neutrophils/100 WBC (Bld) 59.5 % 47-70 [facility] Work Phone: [phone] WBC (Bld) [#/Vol] 5.9 10*3/uL 4.4-11.0 [facility] Work Phone: [phone] Blood erythrocytes count (nu mber/volume)on 05-17-2021 RBC (Bld) [#/Vol] 4.35 10*6/uL 4.6-6.2 [facility] Work Phone: [phone] Blood hemoglobin measurement (mass/volume)on 05-17-2021 Hemoglobin (Bld) [Mass/Vol] 13.4 g/dL 13.0-16.5 [facility] Work Phone: Blood lymphocytes/100 leukoc yteson 05-17-2021 Lymphocytes/100 WBC (Bld) 26.9 % 19-41 [facility] Work Phone: Blood monocytes/100 leukocyt eson 05-17-2021 Monocytes/100 WBC (Bld) 11.0 % 0-10 [facility] Work Phone: Blood platelet mean volumeon 05-17-2021 Platelet mean volume (Bld) [Entitic vol] 11.5 fL 6.2-12.0 [facility] Work Phone: Determination of erythrocyte mean corpuscular volume (MCV)on 05-17-2021 MCV (RBC) [Entitic vol] 92.9 fL 80-94 [facility] Work Phone: Hematocrit Auto (Bld) [Volum e fraction]on 05-17-2021 Hematocrit (Bld) [Volume fraction] 40.4 % 40-54 [facility] Work Phone: Laboratory - Hematology and Cell countson 05-17-2021 Erythrocyte distribution width (RBC) [Entitic vol] 43.4 fL 35.1-43.9 [facility] Work Phone: Erythrocyte distribution width (RBC) [Ratio] 12.7 % 11.6-14.6 [facility] Work Phone: Immature granulocytes/100 WBC (Bld) 0.200 % 0.0-0.9 [facility] Work Phone: Comment on above: IG% - Immature Granu locytes (promyelocytes, myelocytes and metamyelocytes) > 1% indicates that a LEFT SHIFT is Present. MCH (RBC) [Entitic mass] 30.8 pg 27.0-32.0 [facility] Work Phone: Nucleated RBC/100 WBC (Bld) [Ratio] 0 % 0-5 [facility] Work Phone: MCHC Auto (RBC) [Mass/Vol]on 05-17-2021 MCHC (RBC) [Mass/Vol] 33.2 g/dL 32-36 [facility] Work Phone: Platelets bldon 05-17-2021 Platelets (Bld) [#/Vol] 171 10*3/uL 150-450 [facility] Work Phone: ED Provider Noteon 2 ED Provider Note Emergency Department Encounter [facility] ED Patient: Kathya Hooper : 1955 Date [...] [employer] Timothy Burton DO 05/15/21 1530 [facility] ED Provider Note [facility] ED eMERGENCY dEPARTMENT eNCOUnter Pt Name: Kathya [...] Date ? TREVER (acute kidney injury) ([facility]) ? Alcohol abuse 07/08/2018 ? Anxiety [...] of [place] (more content not included)... Normal [facility] Basophil percentageon 2021 Chloride [Moles/Vol] 105 mmol/L 98-107 [facility] Work Phone: Glucose [Mass/Vol] 96 mg/dL 74-106 [facility] Work Phone: Potassium [Moles/Vol] 3.5 mmol/L 3.5-5.1 [facility] Work Phone: Sodium [Moles/Vol] 141 mmol/L 136-145 [facility] Work Phone: Laboratory - Chemistry and C hemistry - challengeon 05-14-2021 CO2 [Moles/Vol] 30.0 mmol/L 21.0-32.0 [facility] Work Phone: Urea nitrogen/Creatinine [Mass ratio] 39.2 mg/mg 10-20 [facility] Work Phone: No Panel Informationon 05-14 Estimated GFR (MDRD) Amer 210 mL/min >60 [facility] Work Phone: Comment on above: GFR Calc Estimated GFR (MDRD) Non-Af Amer 174 mL/min >60 [facility] Work Phone: Comment on above: Non- GFR Calc Serum or plasma calcium gordy urement (mass/volume)on 05-14-2021 Calcium [Mass/Vol] 8.4 mg/dL 8.5-10.1 [facility] Work Phone: Serum or plasma creatinine m easurement (mass/volume)on 05-14-2021 Creatinine [Mass/Vol] 0.51 mg/dL 0.70-1.30 [facility] Work Phone: Comment on above: The validity of the calculated GFR & GFRAA in patients over 70 years has not been determined. Clinical correlation is essential. Serum or plasma urea nitroge n measurement (mass/volume)on 05-14-2021 Urea nitrogen [Mass/Vol] 20 mg/dL 7-18 [facility] Work Phone: Thin prep Papanicolaou smear with manual screeningon 05-14-2021 Thin prep Papanicolaou smear with manual screening 6 5-15 [facility] Work Phone: Absolute lymphocyte counton 05-10-2021 Lymphocytes Auto (Unsp spec) [#/Vol] 1.65 10*3/uL 0.83-4.51 [facility] Work Phone: Basophil percentageon 2021 Basophils/100 WBC (Bld) 0.5 % 0-1 [facility] Work Phone: Eosinophils/100 WBC (Bld) 0.7 % 0-5 [facility] Work Phone: Neutrophils (Bld) [#/Vol] 5.6 10*3/uL 2.0-7.7 [facility] Work Phone: Neutrophils/100 WBC (Bld) 69.5 % 47-70 [facility] Work Phone: WBC (Bld) [#/Vol] 8.1 10*3/uL 4.4-11.0 [facility] Work Phone: Blood erythrocytes count (nu mber/volume)on 05-10-2021 RBC (Bld) [#/Vol] 4.52 10*6/uL 4.6-6.2 [facility] Work Phone: Blood hemoglobin measurement (mass/volume)on 05-10-2021 Hemoglobin (Bld) [Mass/Vol] 13.8 g/dL 13.0-16.5 [facility] Work Phone: Blood lymphocytes/100 leukoc yteson 05-10-2021 Lymphocytes/100 WBC (Bld) 20.4 % 19-41 [facility] Work Phone: Blood monocytes/100 leukocyt eson 05-10-2021 Monocytes/100 WBC (Bld) 8.4 % 0-10 [facility] Work Phone: Blood platelet mean volumeon 05-10-2021 Platelet mean volume (Bld) [Entitic vol] 11.3 fL 6.2-12.0 [facility] Work Phone: Determination of erythrocyte mean corpuscular volume (MCV)on 05-10-2021 MCV (RBC) [Entitic vol] 91.8 fL 80-94 [facility] Work Phone: Hematocrit Auto (Bld) [Volum e fraction]on 05-10-2021 Hematocrit (Bld) [Volume fraction] 41.5 % 40-54 [facility] Work Phone: Laboratory - Hematology and Cell countson 05-10-2021 Erythrocyte distribution width (RBC) [Entitic vol] 42.9 fL 35.1-43.9 [facility] Work Phone: Erythrocyte distribution width (RBC) [Ratio] 12.8 % 11.6-14.6 [facility] Work Phone: Immature granulocytes/100 WBC (Bld) 0.500 % 0.0-0.9 [facility] Work Phone: Comment on above: IG% - Immature Granu locytes (promyelocytes, myelocytes and metamyelocytes) > 1% indicates that a LEFT SHIFT is Present. MCH (RBC) [Entitic mass] 30.5 pg 27.0-32.0 [facility] Work Phone: Nucleated RBC/100 WBC (Bld) [Ratio] 0 % 0-5 [facility] Work Phone: MCHC Auto (RBC) [Mass/Vol]on 05-10-2021 MCHC (RBC) [Mass/Vol] 33.3 g/dL 32-36 [facility] Work [facility]: Platelets bldon 05-10-2021 Platelets (Bld) [#/Vol] 191 10*3/uL 150-450 [facility] Work Phone: Absolute lymphocyte counton 05-03-2021 Lymphocytes Auto (Unsp spec) [#/Vol] 1.69 10*3/uL 0.83-4.51 [facility] Work Phone: Basophil percentageon 2021 Basophils/100 WBC (Bld) 0.6 % 0-1 [facility] Work Phone: Eosinophils/100 WBC (Bld) 0.7 % 0-5 [facility] Work Phone: Neutrophils (Bld) [#/Vol] 4.6 10*3/uL 2.0-7.7 [facility] Work Phone: Neutrophils/100 WBC (Bld) 64.4 % 47-70 [facility] Work Phone: WBC (Bld) [#/Vol] 7.2 10*3/uL 4.4-11.0 [facility]: Blood erythrocytes count (nu mber/volume)on 05-03-2021 RBC (Bld) [#/Vol] 4.55 10*6/uL 4.6-6.2 [facility]: Blood hemoglobin measurement (mass/volume)on 05-03-2021 Hemoglobin (Bld) [Mass/Vol] 14.0 g/dL 13.0-16.5 [facility] Work Phone: Blood lymphocytes/100 leukoc yteson 05-03-2021 Lymphocytes/100 WBC (Bld) 23.6 % 19-41 [facility] Work Phone: Blood monocytes/100 leukocyt eson 05-03-2021 Monocytes/100 WBC (Bld) 10.3 % 0-10 [facility] Work Phone: Blood platelet mean volumeon 05-03-2021 Platelet mean volume (Bld) [Entitic vol] 11.7 fL 6.2-12.0 [facility] Work Phone: Determination of erythrocyte mean corpuscular volume (MCV)on 01-03-2022 MCV (RBC) [Entitic vol] 93.2 fL 80-94 [facility] Work Phone: Hematocrit Auto (Bld) [Volum e fraction]on 05-03-2021 Hematocrit (Bld) [Volume fraction] 42.4 % 40-54 [facility] Work Phone: Laboratory - Hematology and Cell countson 05-03-2021 Erythrocyte distribution width (RBC) [Entitic vol] 44.2 fL 35.1-43.9 [facility] Work Phone: Erythrocyte distribution width (RBC) [Ratio] 13.1 % 11.6-14.6 [facility] Work Phone: Immature granulocytes/100 WBC (Bld) 0.400 % 0.0-0.9 [facility] Work Phone: Comment on above: IG% - Immature Granu locytes (promyelocytes, myelocytes and metamyelocytes) > 1% indicates that a LEFT SHIFT is Present. MCH (RBC) [Entitic mass] 30.8 pg 27.0-32.0 [facility] Work Phone: Nucleated RBC/100 WBC (Bld) [Ratio] 0 % 0-5 [facility] Work Phone: MCHC Auto (RBC) [Mass/Vol]on 05-03-2021 MCHC (RBC) [Mass/Vol] 33.0 g/dL 32-36 [facility] Work [facility]: Platelets bldon 05-03-2021 Platelets (Bld) [#/Vol] 175 10*3/uL 150-450 [facility] Work Phone: Absolute lymphocyte counton 04-26-2021 Lymphocytes Auto (Unsp spec) [#/Vol] 1.68 10*3/uL 0.83-4.51 [facility] Work Phone: [phone] Basophil percentageon 2020 Eosinophils/100 WBC (Bld) 1.1 % 0-5 [facility] Work Phone: Neutrophils (Bld) [#/Vol] 4.5 10*3/uL 2.0-7.7 [facility] Work Phone: WBC (Bld) [#/Vol] 7.2 10*3/uL 4.4-11.0 [facility] Work Phone: Blood erythrocytes count (nu mber/volume)on 04-26-2021 RBC (Bld) [#/Vol] 4.32 10*6/uL 4.6-6.2 [facility]: Blood hemoglobin measurement (mass/volume)on 04-26-2021 Hemoglobin (Bld) [Mass/Vol] 13.5 g/dL 13.0-16.5 [facility] Work Phone: Blood lymphocytes/100 leukoc yteson 04-26-2021 Lymphocytes/100 WBC (Bld) 23.5 % 19-41 [facility] Work Phone: Blood monocytes/100 leukocyt eson 04-26-2021 Monocytes/100 WBC (Bld) 11.0 % 0-10 [facility] Work Phone: Blood platelet mean volumeon 04-26-2021 Platelet mean volume (Bld) [Entitic vol] 11.0 fL 6.2-12.0 [facility] Work Phone: Determination of erythrocyte mean corpuscular volume (MCV)on 04-26-2021 MCV (RBC) [Entitic vol] 93.3 fL 80-94 [facility] Work Phone: Hematocrit Auto (Bld) [Volum e fraction]on 04-26-2021 Hematocrit (Bld) [Volume fraction] 40.3 % 40-54 [facility] Work Phone: Laboratory - Hematology and Cell countson 04-26-2021 Basophils/100 WBC (Unsp spec) 0.6 % 0-1 [facility] Work Phone: Erythrocyte distribution width (RBC) [Entitic vol] 45.8 fL 35.1-43.9 [facility] Work Phone: Erythrocyte distribution width (RBC) [Ratio] 13.2 % 11.6-14.6 [facility] Work Phone: Immature granulocytes/100 WBC (Bld) 0.600 % 0.0-0.9 [facility] Work Phone: Comment on above: IG% - Immature Granu locytes (promyelocytes, myelocytes and metamyelocytes) > 1% indicates that a LEFT SHIFT is Present. MCH (RBC) [Entitic mass] 31.3 pg 27.0-32.0 [facility] Work Phone: Neutrophils/100 WBC (Bld) 63.2 % 47-70 [facility] Work Phone: Nucleated RBC/100 WBC (Bld) [Ratio] 0 % 0-5 [facility] Work Phone: MCHC Auto (RBC) [Mass/Vol]on 04-26-2021 MCHC (RBC) [Mass/Vol] 33.5 g/dL 32-36 [facility] Work Phone: Platelets bldon 04-26-2021 Platelets (Bld) [#/Vol] 172 10*3/uL 150-450 [facility] Work Phone: Absolute lymphocyte counton 04-19-2021 Lymphocytes Auto (Unsp spec) [#/Vol] 1.31 10*3/uL 0.83-4.51 [facility] Work Phone: Basophil percentageon 2020 Eosinophils/100 WBC (Bld) 2.8 % 0-5 [facility] Work Phone: Neutrophils (Bld) [#/Vol] 3.0 10*3/uL 2.0-7.7 [facility] Work Phone: WBC (Bld) [#/Vol] 5.0 10*3/uL 4.4-11.0 [facility] Work Phone: Blood erythrocytes count (nu mber/volume)on 04-19-2021 RBC (Bld) [#/Vol] 4.26 10*6/uL 4.6-6.2 [facility]: Blood hemoglobin measurement (mass/volume)on 04-19-2021 Hemoglobin (Bld) [Mass/Vol] 13.2 g/dL 13.0-16.5 [facility] Work Phone: Blood lymphocytes/100 leukoc yteson 04-19-2021 Lymphocytes/100 WBC (Bld) 26.1 % 19-41 [facility] Work Phone: Blood monocytes/100 leukocyt eson 04-19-2021 Monocytes/100 WBC (Bld) 10.0 % 0-10 [facility] Work Phone: Blood platelet mean volumeon 04-19-2021 Platelet mean volume (Bld) [Entitic vol] 10.9 fL 6.2-12.0 [facility] Work Phone: Determination of erythrocyte mean corpuscular volume (MCV)on 04-19-2021 MCV (RBC) [Entitic vol] 93.7 fL 80-94 [facility] Work Phone: Hematocrit Auto (Bld) [Volum e fraction]on 04-19-2021 Hematocrit (Bld) [Volume fraction] 39.9 % 40-54 [facility] Work Phone: Laboratory - Hematology and Cell countson 04-19-2021 Basophils/100 WBC (Unsp spec) 1.0 % 0-1 [facility] Work Phone: Erythrocyte distribution width (RBC) [Entitic vol] 46.7 fL 35.1-43.9 [facility] Work Phone: Erythrocyte distribution width (RBC) [Ratio] 13.7 % 11.6-14.6 [facility] Work Phone: Immature granulocytes/100 WBC (Bld) 0.400 % 0.0-0.9 [facility] Work Phone: Comment on above: IG% - Immature Granu locytes (promyelocytes, myelocytes and metamyelocytes) > 1% indicates that a LEFT SHIFT is Present. MCH (RBC) [Entitic mass] 31.0 pg 27.0-32.0 [facility] Work Phone: Neutrophils/100 WBC (Bld) 59.7 % 47-70 [facility] Work Phone: Nucleated RBC/100 WBC (Bld) [Ratio] 0 % 0-5 [facility] Work Phone: MCHC Auto (RBC) [Mass/Vol]on 04-19-2021 MCHC (RBC) [Mass/Vol] 33.1 g/dL 32-36 [facility] Work Phone: Platelets bldon 04-19-2021 Platelets (Bld) [#/Vol] 165 10*3/uL 150-450 [facility] Work Phone: Absolute lymphocyte counton 04-12-2021 Lymphocytes Auto (Unsp spec) [#/Vol] 1.41 10*3/uL 0.83-4.51 [facility] Work Phone: Basophil percentageon 2020 Bilirubin [Mass/Vol] 0.40 mg/dL 0.20-1.00 [facility] Work Phone: Comment on above: For patients on eltr ombopag therapy, use of Dimension [place] TBIL is not recommended. Eosinophils/100 WBC (Bld) 0.9 % 0-5 [facility] Work Phone: Neutrophils (Bld) [#/Vol] 3.4 10*3/uL 2.0-7.7 [facility] Work Phone: Protein [Mass/Vol] 5.7 g/dL 6.4-8.2 [facility] Work Phone: WBC (Bld) [#/Vol] 5.5 10*3/uL 4.4-11.0 [facility]: Blood erythrocytes count (nu mber/volume)on 04-12-2021 RBC (Bld) [#/Vol] 4.09 10*6/uL 4.6-6.2 [facility] Work Phone: Blood hemoglobin measurement (mass/volume)on 04-12-2021 Hemoglobin (Bld) [Mass/Vol] 12.4 g/dL 13.0-16.5 [facility] Work Phone: Blood lymphocytes/100 leukoc yteson 04-12-2021 Lymphocytes/100 WBC (Bld) 25.9 % 19-41 [facility] Work Phone: Blood monocytes/100 leukocyt eson 04-12-2021 Monocytes/100 WBC (Bld) 9.2 % 0-10 [facility] Work Phone: Blood platelet mean volumeon 04-12-2021 Platelet mean volume (Bld) [Entitic vol] 11.1 fL 6.2-12.0 [facility] Work Phone: Determination of erythrocyte mean corpuscular volume (MCV)on 04-12-2021 MCV (RBC) [Entitic vol] 93.4 fL 80-94 [facility] Work Phone: Direct bilirubinon Bilirubin.direct [Mass/Vol] 0.08 mg/dL 0.00-0.30 [facility] Work Phone: Hematocrit Auto (Bld) [Volum e fraction]on 04-12-2021 Hematocrit (Bld) [Volume fraction] 38.2 % 40-54 [facility] Work Phone: Laboratory - Chemistry and C hemistry - challengeon 04-12-2021 ALP [Catalytic activity/Vol] 101 U/L 45-117 [facility] Work Phone: ALT [Catalytic activity/Vol] 30 U/L 16-61 [facility] Work Phone: Globulin (S) [Mass/Vol] 2.9 g/dL 2.2-4.2 [facility] Work Phone: [phone] Laboratory - Hematology and Cell countson 04-12-2021 Basophils/100 WBC (Unsp spec) 0.6 % 0-1 [facility] Work Phone: [phone] Erythrocyte distribution width (RBC) [Entitic vol] 46.7 fL 35.1-43.9 [facility] Work Phone: [phone] Erythrocyte distribution width (RBC) [Ratio] 13.7 % 11.6-14.6 [facility] Work Phone: [phone] Immature granulocytes/100 WBC (Bld) 0.400 % 0.0-0.9 [facility] Work Phone: [phone] Comment on above: IG% - Immature Granu locytes (promyelocytes, myelocytes and metamyelocytes) > 1% indicates that a LEFT SHIFT is Present. MCH (RBC) [Entitic mass] 30.3 pg 27.0-32.0 [facility] Work Phone: [phone] Neutrophils/100 WBC (Bld) 63.0 % 47-70 [facility] Work Phone: [phone] Nucleated RBC/100 WBC (Bld) [Ratio] 0 % 0-5 [facility] Work Phone: MCHC Auto (RBC) [Mass/Vol]on 04-12-2021 MCHC (RBC) [Mass/Vol] 32.5 g/dL 32-36 [facility] Work Phone: Platelets bldon 04-12-2021 Platelets (Bld) [#/Vol] 173 10*3/uL 150-450 [facility] Work Phone: Serum or plasma albumin gordy urement (mass/volume)on 04-12-2021 Albumin [Mass/Vol] 2.8 g/dL 3.2-5.0 [facility] Work Phone: Thin prep Papanicolaou smear with manual screeningon 04-12-2021 Thin prep Papanicolaou smear with manual screening 15 U/L 15-37 [facility] Work Phone: Absolute lymphocyte counton 04-07-2021 Lymphocytes Auto (Unsp spec) [#/Vol] 1.55 10*3/uL 0.83-4.51 [facility] Work Phone: [phone] Basophil percentageon 2020 Eosinophils/100 WBC (Bld) 0.7 % 0-5 [facility] Work Phone: Neutrophils (Bld) [#/Vol] 5.3 10*3/uL 2.0-7.7 [facility] Work Phone: WBC (Bld) [#/Vol] 8.1 10*3/uL 4.4-11.0 [facility] Work Phone: Blood erythrocytes count (nu mber/volume)on 04-07-2021 RBC (Bld) [#/Vol] 4.18 10*6/uL 4.6-6.2 [facility] Work Phone: Blood hemoglobin measurement (mass/volume)on 04-07-2021 Hemoglobin (Bld) [Mass/Vol] 12.9 g/dL 13.0-16.5 [facility] Work Phone: Blood lymphocytes/100 leukoc yteson 04-07-2021 Lymphocytes/100 WBC (Bld) 19.2 % 19-41 [facility] Work Phone: Blood monocytes/100 leukocyt eson 04-07-2021 Monocytes/100 WBC (Bld) 13.0 % 0-10 [facility] Work Phone: Blood platelet mean volumeon 04-07-2021 Platelet mean volume (Bld) [Entitic vol] 10.9 fL 6.2-12.0 [facility] Work Phone: Determination of erythrocyte mean corpuscular volume (MCV)on 04-07-2021 MCV (RBC) [Entitic vol] 92.6 fL 80-94 [facility] Work Phone: Hematocrit Auto (Bld) [Volum e fraction]on 04-07-2021 Hematocrit (Bld) [Volume fraction] 38.7 % 40-54 [facility] Work Phone: Laboratory - Hematology and Cell countson 04-07-2021 Basophils/100 WBC (Unsp spec) 0.6 % 0-1 [facility] Work Phone: Erythrocyte distribution width (RBC) [Entitic vol] 45.8 fL 35.1-43.9 [facility] Work Phone: Erythrocyte distribution width (RBC) [Ratio] 13.5 % 11.6-14.6 [facility] Work Phone: Immature granulocytes/100 WBC (Bld) 0.500 % 0.0-0.9 [facility] Work Phone: Comment on above: IG% - Immature Granu locytes (promyelocytes, myelocytes and metamyelocytes) > 1% indicates that a LEFT SHIFT is Present. MCH (RBC) [Entitic mass] 30.9 pg 27.0-32.0 [facility] Work Phone: Neutrophils/100 WBC (Bld) 66.0 % 47-70 [facility] Work Phone: Nucleated RBC/100 WBC (Bld) [Ratio] 0 % 0-5 [facility] Work Phone: MCHC Auto (RBC) [Mass/Vol]on 04-07-2021 MCHC (RBC) [Mass/Vol] 33.3 g/dL 32-36 [facility] Work Phone: Platelets bldon 04-07-2021 Platelets (Bld) [#/Vol] 210 10*3/uL 150-450 [facility] Work Phone: CULTURE BLOODon 03-25-2021 Microscopic examination of blood, culture CULTURE BLOOD --> Status: F No growth at 5 days. Normal [facility] Comment on above: Performed By: #### C /BLD ####[facility] [employer]ID [id number] [place] [address] CULTURE BLOOD (Two)on 2020 Microscopic examination of blood, culture CULTURE BLOOD (Two) --> Status: F No growth at 5 days. Normal [facility] Comment on above: Performed By: #### C /BLT ####[facility] [employer] [id number] [place] [address] Basic Metabolic Panelon 03-02 Calcium [Mass/Vol] 8.8 mg/dL Normal 8.4-10.4 [facility] Comment on above: Performed By: #### H EMDF, BMP3 #### [facility] [employer] [facility] [address] [place] [address] Glucose [Mass/Vol] 103 mg/dL High 70-100 [facility] Comment on above: Performed By: #### H EMDF, BMP3 #### [facility] [address] [place] [address] Anion gap [Moles/Vol] 5 mmol/L Normal 3-13 [facility] Comment on above: Performed By: #### H EMDF, BMP3 #### [facility] [employer] [facility] [address] [place] [address] CO2 [Moles/Vol] 26 mmol/L Normal 22-30 [facility] Comment on above: Performed By: #### H EMDF, BMP3 #### [facility] [employer] [facility] [address] [place] [address] Creatinine [Mass/Vol] 0.49 mg/dL Low 0.52-1.25 [facility] Comment on above: Performed By: #### H EMDF, BMP3 #### [facility] [address] [place] [address] eGFR OTHER > 90.0 Normal >60 [facility] Comment on above: Result Comment: KDIG [...] Performed By: #### Kerri BRAR BMP3 #### [facility] [address] [place] [address] GFR/1.73 sq M.predicted among blacks MDRD (S/P/Bld) [Vol rate/Area] mL/min/{1.73_m2} Normal >60 [facility] Comment on above: Performed By: #### Kerri BRAR BMP3 #### [facility] [address] [place] [address] Urea nitrogen [Mass/Vol] 30 mg/dL High 7-17 [facility] Comment on above: Performed By: #### Kerri BRAR BMP3 #### [facility] [address] [place] [address] Chloride [Moles/Vol] 112 mmol/L High 98-107 [facility] Comment on above: Performed By: #### Kerri BRAR BMP3 #### [facility] [address] [place] [address] Potassium [Moles/Vol] 4.1 mmol/L Normal 3.5-5.1 [facility] Comment on above: Performed By: #### H MAYKEL BMP3 #### [facility] [address] [place] [address] Sodium [Moles/Vol] 142 mmol/L Normal 135-145 [facility] Comment on above: Performed By: #### Kerri BRAR BMP3 #### [facility] [address] [place] [address] Anion gap [Moles/Vol] 5 mmol/L 3 - 13 mmol/L [facility] Work Phone: Calcium [Mass/Vol] 8.8 mg/dL 8.4 - 10. 4 mg/dL [facility] Work Phone: Chloride [Moles/Vol] 112 mmol/L High 98 - 10 7 mmol/L [facility] Work Phone: CO2 [Moles/Vol] 26 mmol/L 22 - 30 mmol/L [facility] Work Phone: Creatinine [Mass/Vol] 0.49 mg/dL Low 0.52 - 1.25 mg/dL [facility] Work Phone: EGFR IF NonAfrican Bhutanese >90.0 >60 mL/min [facility] Work Phone: Comment on above: KDIGO [...] 30 mg/dL High 7 - 17 mg/dL [employer] Work Phone: Test Performed by [employer], [address] [place] [id number] [facility] Work Phone: CBC Auto Differentialon 11-2 Hematocrit (Bld) [Volume fraction] 35.0 % Low 40.0 - 52.0 % [employer] Work Phone: Hemoglobin.gastrointest inal spec 1 Ql (Stl) 11.7 g/dL Low 13.0 - 18.0 g/dL [employer] Work Phone: Interpretation and review of laboratory results Abnormal [facility] Work Phone: MCH (RBC) [Entitic mass] 31.0 pg 26.0 - 34.0 pg [employer] Work Phone: MCHC (RBC) [Mass/Vol] 33.4 % 32.0 - 36.0 % [employer] Work Phone: MCV (RBC) [Entitic vol] 92.7 fL 80.0 - 98.0 fL [employer] Work Phone: Platelet distribution width (Bld) [Ratio] 13.4 % 11.5 - 14.5 % [employer] Phone: Platelet mean volume (Bld) [Entitic vol] 8.6 fL 7.4 - 10.4 fL [employer] Work Phone: Platelets (Bld) [#/Vol] 236 10*3/uL 140 - 440 10*3/uL [employer] Work Phone: RBC (Bld) [#/Vol] 3.77 10*6/uL Low 4.40 - 5.9 0 10*6/uL [employer] Work Phone: WBC (Bld) [#/Vol] 12.8 10*3/uL High 3.6 - 10.7 10*3/uL [employer] Work Phone: Test Performed by [employer], [address] [place], [place] [address] [facility] Work Phone: Glucose,Bedsideon 03-24-2021 Glucose [Mass/Vol] 93 mg/dL Normal 70-100 [facility] Comment on above: Result Comment: Test performed by glucose meter. Results may be 10%-15% lower than serum/plasma values. (CLIA ID [id number]) Performed By: #### H EMDF, BMP3 #### [employer] [facility] [address] [place] [address] Glucose [Mass/Vol] 166 mg/dL High 70-100 [facility] Comment on above: Result Comment: Test performed by glucose meter. Results may be 10%-15% lower than serum/plasma values. (CLIA ID [id number]) Performed By: #### B GLU ####[facility] [employer] [id number] [facility] [address] [place] [address] Hemogram w/ Autodiffon 03-24 Erythrocyte distribution width (RBC) [Ratio] 13.4 % Normal 11.5-14.5 [facility] Comment on above: Performed By: #### H EMDF, BMP3 #### [employer] [facility] [address] [place] [address] Hematocrit (Bld) [Volume fraction] 35.0 % Low 40.0-52.0 [facility] Comment on above: Performed By: #### H EMDF, BMP3 #### [facility] [employer] [facility] [address] [place] [address] Hemoglobin (Bld) [Mass/Vol] 11.7 g/dL Low 13.0-18.0 [facility] Comment on above: Performed By: #### H EMDF, BMP3 #### [facility] [employer] [facility] [address] [place] [address] MCH (RBC) [Entitic mass] 31.0 pg Normal 26.0-34.0 [facility] Comment on above: Performed By: #### H EMDF, BMP3 #### [facility] [employer] [facility] [address] [place] [place] [address] MCHC 33.4 % Normal 32.0-36.0 [facility] Comment on above: Performed By: #### H EMDF, BMP3 #### [facility] [address] [place] [address] MCV (RBC) [Entitic vol] 92.7 fL Normal 80.0-98.0 [facility] Comment on above: Performed By: #### H EMDF, BMP3 #### [facility] [address] [place] [address] Platelet mean volume (Bld) [Entitic vol] 8.6 fL Normal 7.4-10.4 [facility] Comment on above: Performed By: #### H EMDF, BMP3 #### [facility] [address] [place] [address] Platelets (Bld) [#/Vol] 236 10*3/uL Normal 140-440 [facility] Comment on above: Performed By: #### H MAYKEL, BMP3 #### [facility] [address] [place] [address] RBC (Bld) [#/Vol] 3.77 10*6/uL Low 4.40-5.90 [facility] Comment on above: Performed By: #### H MAYKEL BMP3 #### [facility] [address] [place] [address] WBC (Bld) [#/Vol] 12.8 10*3/uL High 3.6-10.7 [facility] Comment on above: Performed By: #### H EMDF, BMP3 #### [facility] [address] [place] [address] Manual Diffon 03-24-2021 Abs Lymph Cnt 1.7 10*3/uL Normal 1.1-4.5 [facility] Comment on above: Performed By: #### H EMDF, BMP3 #### [facility] [address] [place] [address] Abs Monocyte Cnt 0.8 10*3/uL Normal 0.2-1.1 [facility] Comment on above: Performed By: #### H MAYKEL, BMP3 #### [facility] [address] [place] [address] Abs Neutrophile Cnt 10.1 10*3/uL High 2.2-8.2 [facility] Comment on above: Performed By: #### H EMDF, BMP3 #### [facility] [address] [place] [address] Anisocytosis Slight Normal [facility] Comment on above: Performed By: #### H EMDF, BMP3 #### [facility] [address] [place] [address] Atypical Lymphocytes 2 % Abnormal <1 [facility] Comment on above: Performed By: #### H EMDF, BMP3 #### [facility] [address] [place] [address] Abdoul Cells Slight Normal [facility] Comment on above: Performed By: #### H EMDF, BMP3 #### [facility] [address] [place] [address] Lymphocytes 11 % Low 20-40 [facility] Comment on above: Performed By: #### H EMDF, BMP3 #### [facility] [address] [place] [address] Monocytes 6 % Normal 2-10 [facility] Comment on above: Performed By: #### H EMDF, BMP3 #### [facility] [address] [place] [address] Myelocytes 2 % Abnormal <1 [facility] Comment on above: Performed By: #### H EMDF, BMP3 #### [facility] [address] [place] [address] Ovalocytes Slight Normal [facility] Comment on above: Performed By: #### H EMDF, BMP3 #### [facility] [address] [place] [address] Poikilocytosis Slight Normal [facility] Comment on above: Performed By: #### H EMDF, BMP3 #### [facility] [address] [place] [address] Polychromasia Slight Normal [facility] Comment on above: Performed By: #### H EMDF, BMP3 #### [facility] [address] [place] [address] RBC Morphology ABNORMAL Normal [facility] Comment on above: Performed By: #### H EMDF, BMP3 #### [facility] [address] [place] [address] Seg Neutrophils 79 % Normal 40-80 [facility] Comment on above: Performed By: #### H EMDF, BMP3 #### [facility] [address] [place] [address] Tear Drop Forms Slight Normal [facility] Comment on above: Performed By: #### H EMDF, BMP3 #### [facility] [address] [place] [address] Abs Baso Cnt 0.0 10*3/uL Normal 0.0-0.2 [facility] Comment on above: Performed By: #### H EMDF, BMP3 #### [facility] [address] [place] [address] Abs Eosin Cnt 0.0 10*3/uL Normal 0.0-0.5 [facility] Comment on above: Performed By: #### H EMDF, BMP3 #### [facility] [address] [place] [address] Bands 0 % Normal 0-3 [facility] Comment on above: Performed By: #### H EMDF, BMP3 #### [facility] [address] [place] [address] Basophils 0 % Normal 0-2 [facility] Comment on above: Performed By: #### H EMDF, BMP3 #### [facility] [address] [place] [address] Cells counted 100 Normal [facility] Comment on above: Performed By: #### H EMDF, BMP3 #### [facility] [address] [place] [address] Eosinophils 0 % Low 1-6 [facility] Comment on above: Performed By: #### H EMDF, BMP3 #### [facility] [address] [place] [address] Manual Differentialon 2020 Absolute Baso # 0.0 10*3/uL 0.0 - 0.2 10*3/uL [facility] Work Phone: Absolute Eos # 0.0 10*3/uL 0.0 - 0.5 10*3/uL [facility] Work Phone: Absolute Lymph # 1.7 10*3/uL 1.1 - 4.5 10*3/uL [facility] Work Phone: Absolute [place] # 0.8 10*3/uL 0.2 - 1.1 10*3/uL [facility] Work Phone: Absolute Neut # 10.1 10*3/uL High 2.2 - 8.2 10*3/uL [facility] Work Phone: Anisocytosis Slight [facility] Work Phone: Atypical Lymphocytes 2 % Abnormal <1 [facility] Work Phone: Bands 0 % 0 - 3 % [facility] Work Phone: Basophils/100 WBC (Bld) 0 % 0 - 2 % S [facility] Work Phone: [place] Cells Slight [facility] Work Phone: Eosinophils/100 WBC [...] [facility] Work Phone: TOTAL CELLS COUNTED [address] [facility] Work Phone: Test Performed by [facility], [address] [place] [address] [facility] Work Phone: POCT Glucoseon 03-24-2021 Glucose [Mass/Vol] 93 mg/dL 70 - 100 mg/dL [facility] Work Phone: Comment on above: Test performed by gl ucose meter. Results may be 10%-15% lower than serum/plasma values. (CLIA ID [id number]) Test Performed by [facility], [address] [place] [address] [facility] Work Phone: Basic Metabolic Panelon 03-02 Calcium [Mass/Vol] 8.8 mg/dL Normal 8.4-10.4 [facility] Comment on above: Performed By: #### H EMDF, BMP3 #### [facility] [address] [place] [address] Glucose [Mass/Vol] 143 mg/dL High 70-100 [facility] Comment on above: Performed By: #### H EMDF, BMP3 #### [facility] [facility] [address] [place] [address] Anion gap [Moles/Vol] 8 mmol/L Normal 3-13 [facility] Comment on above: Performed By: #### H EMDF, BMP3 #### [facility] [address] [place] [address] CO2 [Moles/Vol] 24 mmol/L Normal 22-30 [facility] Comment on above: Performed By: #### H EMDF, BMP3 #### [facility] [address] [place] [address] Creatinine [Mass/Vol] 0.47 mg/dL Low 0.52-1.25 [facility] Comment on above: Performed By: #### H EMDF, BMP3 #### [facility] [address] [place] [address] eGFR OTHER > 90.0 Normal >60 [facility] Comment on above: Result Comment: KDIG [...] Performed By: #### H EMDF, BMP3 #### [facility] [address] [place] [address] GFR/1.73 sq M.predicted among blacks MDRD (S/P/Bld) [Vol rate/Area] mL/min/{1.73_m2} Normal >60 [facility] Comment on above: Performed By: #### H EMDF BMP3 #### [facility] [address] [place] [address] Urea nitrogen [Mass/Vol] 32 mg/dL High 7-17 [facility] Comment on above: Performed By: #### H EMDF, BMP3 #### [facility] [address] [place] [address] Chloride [Moles/Vol] 110 mmol/L High 98-107 [facility] Comment on above: Performed By: #### H EMDF, BMP3 #### [facility] [address] [place] [address] Potassium [Moles/Vol] 3.9 mmol/L Normal 3.5-5.1 [facility] Comment on above: Performed By: #### H EMDF, BMP3 #### [facility] [address] [place] [address] Sodium [Moles/Vol] 142 mmol/L Normal 135-145 [facility] Comment on above: Performed By: #### H EMDF, BMP3 #### [facility] [address] [place] [address] Anion gap [Moles/Vol] 8 mmol/L 3 - 13 mmol/L [employer] Work Phone: Calcium [Mass/Vol] 8.8 mg/dL 8.4 - 10. 4 mg/dL [facility] Work Phone: Chloride [Moles/Vol] 110 mmol/L High 98 - 10 7 mmol/L [facility] Work Phone: CO2 [Moles/Vol] 24 mmol/L 22 - 30 mmol/L [facility] Work Phone: Creatinine [Mass/Vol] 0.47 mg/dL Low 0.52 - 1.25 mg/dL [employer] Work Phone: EGFR IF NonAfrican Bhutanese >90.0 >60 mL/min [employer] Work Phone: Comment on above: KDIGO guidelines [...] Interpretation and review of laboratory results Abnormal [employer] Work Phone: Potassium [Moles/Vol] 3.9 mmol/L 3.5 - 5.1 mmol/L [employer] Work Phone: Sodium [Moles/Vol] 142 mmol/L 135 - 145 mmol/L [facility] Work Phone: Urea nitrogen (BldV) [Mass/Vol] 32 mg/dL High 7 - 17 mg/dL [facility] Work Phone: Test Performed by [employer] [facility], [address] [place], [place] [id number] [place] [address] LAB [facility] Work Phone: CBC Auto Differentialon 11-2 Absolute Baso # 0.0 10*3/uL 0.0 - 0.2 10*3/uL [facility] Work Phone: Absolute Neut # 13.5 10*3/uL High 1.8 - 7.0 10*3/uL [employer] Work Phone: Basophils/100 WBC (Bld) 0.3 % 0.0 - 2.0 % [facility] Work Phone: Eosinophils (Bld) [#/Vol] 0.0 10*3/uL 0.0 - 0.5 10*3/uL [facility] Work Phone: Eosinophils/100 WBC (Bld) 0.0 % Low 1.0 - 6.0 % [facility] Work Phone: Granulocytes/100 WBC (Bld) 89.5 % High 40.0 - 80.0 % [facility] Work Phone: Hematocrit (Bld) [Volume fraction] 36.5 % Low 40.0 - 52.0 % [employer] Work Phone: Hemoglobin.gastrointest inal spec 1 Ql (Stl) 12.4 g/dL Low 13.0 - 18.0 g/dL [employer] Work Phone: Interpretation and review of laboratory results Abnormal [facility] Work Phone: Lymphocytes (Bld) [#/Vol] 0.7 10*3/uL Low 1.0 - 4.3 10*3/uL [employer] Work Phone: [phone] Lymphocytes/100 WBC (Bld) 4.8 % Low 20.0 - 40.0 % [employer] Work Phone: [phone] MCH (RBC) [Entitic mass] 31.3 pg 26.0 - 34.0 pg [employer] Work Phone: [phone] MCHC (RBC) [Mass/Vol] 34.1 % 32.0 - 36.0 % [employer] Work Phone: [phone] MCV (RBC) [Entitic vol] 92.0 fL 80.0 - 98.0 fL [employer] Work Phone: [phone] Monocytes (Bld) [#/Vol] 0.8 10*3/uL 0.0 - 0.8 10*3/uL [employer] Work Phone: [phone] Monocytes/100 WBC (Bld) 5.4 % 2.0 - 10.0 % [employer] Work Phone: [phone] Platelet distribution width (Bld) [Ratio] 13.2 % 11.5 - 14.5 % [employer] Work Phone: Platelet mean volume (Bld) [Entitic vol] 9.0 fL 7.4 - 10.4 fL [employer] Work Phone: [phone] Platelets (Bld) [#/Vol] 211 10*3/uL 140 - 440 10*3/uL [employer] Work Phone: [phone] RBC (Bld) [#/Vol] 3.96 10*6/uL Low 4.40 - 5.9 0 10*6/uL [employer] Work Phone: WBC (Bld) [#/Vol] 15.1 10*3/uL High 3.6 - 10.7 10*3/uL [employer] Work Phone: Test Performed by [employer] [facility], [address] [place], [place], [place] [id number] [place] [address] LAB [employer] Work Phone: [phone] Glucose,Bedsideon 03-23-2021 Glucose [Mass/Vol] 122 mg/dL High 70-100 [facility] Comment on above: Result Comment: Test performed by glucose meter. Results may be 10%-15% lower than serum/plasma values. (CLIA ID [id number]) Performed By: #### H MAYKEL BMP3 #### [facility] [address] [place] [address] Glucose [Mass/Vol] 129 mg/dL High 70-[address] [facility] Comment on above: Test performed by gl ucose meter. Results may be 10%-15% lower than serum/plasma values. (CLIA ID [id number]) Result Comment: Test performed by glucose meter. Results may be 10%-15% lower than serum/plasma values. (CLIA ID [id number]) Performed By: #### B GLU ####[place] [address] [facility] [place] [address] Glucose [Mass/Vol] 136 mg/dL High 70-100 [facility] Comment on above: Result Comment: Test performed by glucose meter. Results may be 10%-15% lower than serum/plasma values. (CLIA ID [id number]) Performed By: #### B GLU #### [facility] [address] [place] [address] Hemogram w/ Autodiffon 03-23 Abs Baso Cnt 0.0 10*3/uL Normal 0.0-0.2 [facility] Comment on above: Performed By: #### H EMDF BMP3 #### [facility] [address] [place] [address] Abs Neutrophile Cnt 13.5 10*3/uL High 1.8-7.0 [facility] Comment on above: Performed By: #### H EMDF BMP3 #### [facility] [address] [place] [address] Basophils/100 WBC (Bld) 0.3 % Normal 0.0-2.0 [facility] Comment on above: Performed By: #### H ALCIRAF BMP3 #### [facility] [address] [place] [address] Eosinophils (Bld) [#/Vol] 0.0 10*3/uL Normal 0.0-0.5 [facility] Comment on above: Performed By: #### H EMDF, BMP3 #### [facility] [address] [place] [address] Eosinophils/100 WBC (Bld) 0.0 % Low 1.0-6.0 [facility] [employer] Comment on above: Performed By: #### H EMDF, BMP3 #### [facility] [address] [place] [address] Erythrocyte distribution width (RBC) [Ratio] 13.2 % Normal 11.5-14.5 [facility] [employer] Comment on above: Performed By: #### H EMDF, BMP3 #### [facility] [address] [place] [address] Granulocytes/100 WBC (Bld) 89.5 % High 40.0-80.0 [facility] [employer] Comment on above: Performed By: #### H EMDF, BMP3 #### [facility] [employer] [facility] [address] [place] [address] Hematocrit (Bld) [Volume fraction] 36.5 % Low 40.0-52.0 [facility] [employer] Comment on above: Performed By: #### H EMDF, BMP3 #### [facility] [employer] [facility] [address] [place] [address] Hemoglobin (Bld) [Mass/Vol] 12.4 g/dL Low 13.0-18.0 [facility] [employer] Comment on above: Performed By: #### H EMDF, BMP3 #### [facility] [address] [place] [address] Lymphocytes (Bld) [#/Vol] 0.7 10*3/uL Low 1.0-4.3 [facility] [employer] Comment on above: Performed By: #### H EMDF, BMP3 #### [facility] [address] [place] [address] Lymphocytes/100 WBC (Bld) 4.8 % Low 20.0-40.0 [facility] [employer] Comment on above: Performed By: #### H EMDF, BMP3 #### [facility] [address] [place] [address] MCH (RBC) [Entitic mass] 31.3 pg Normal 26.0-34.0 [facility] Comment on above: Performed By: #### H EMDF, BMP3 #### [facility] [address] [place] [address] MCHC 34.1 % Normal 32.0-36.0 [facility] Comment on above: Performed By: #### H EMDF, BMP3 #### [facility] [address] [place] [address] MCV (RBC) [Entitic vol] 92.0 fL Normal 80.0-98.0 [facility] Comment on above: Performed By: #### H EMDF, BMP3 #### [facility] [address] [place] [address] Monocytes (Bld) [#/Vol] 0.8 10*3/uL Normal 0.0-0.8 [facility] Comment on above: Performed By: #### H EMDF, BMP3 #### [facility] [address] [place] [address] Monocytes/100 WBC (Bld) 5.4 % Normal 2.0-10.0 [facility] Comment on above: Performed By: #### H EMDF, BMP3 #### [facility] [address] [place] [address] Platelet mean volume (Bld) [Entitic vol] 9.0 fL Normal 7.4-10.4 [facility] Comment on above: Performed By: #### H EMDF, BMP3 #### [facility] [address] [place] [address] Platelets (Bld) [#/Vol] 211 10*3/uL Normal 140-440 [facility] Comment on above: Performed By: #### H EMDF, BMP3 #### [facility] [address] [place] [address] RBC (Bld) [#/Vol] 3.96 10*6/uL Low 4.40-5.90 [facility] Comment on above: Performed By: #### H EMDF, BMP3 #### [facility] [address] [place] [address] WBC (Bld) [#/Vol] 15.1 10*3/uL High 3.6-10.7 [facility] Comment on above: Performed By: #### H EMDF, BMP3 #### [facility] [address] [place] [address] No Panel Informationon 03-23 Interpretation and review of laboratory results Abnormal [facility] Work Phone: Test Performed by [facility], [address] LAB [facility] Work Phone: POCT Glucoseon 03-23-2021 Glucose [Mass/Vol] 166 mg/dL High 70 - 100 mg/dL [facility] Comment on above: Test performed by gl ucose meter. Results may be 10%-15% lower than serum/plasma values. (CLIA ID [id number]) Interpretation and review of laboratory results Abnormal [facility] Test Performed by [facility], [address] LAB [facility] Glucose [Mass/Vol] 122 mg/dL High 70 - 100 mg/dL [facility] Work Phone: Comment on above: Test performed by gl ucose meter. Results may be 10%-15% lower than serum/plasma values. (CLIA ID [id number]) Glucose [Mass/Vol] 136 mg/dL High 70 - 100 mg/dL [facility] Comment on above: Test performed by gl ucose meter. Results may be 10%-15% lower than serum/plasma values. (CLIA ID [id number]) Interpretation and review of laboratory results Abnormal [facility] Test Performed by [facility], [address] LAB [facility] CBC Auto Differentialon 03-02 Absolute Baso # 0.0 10*3/uL 0.0 - 0.2 10*3/uL [facility] Absolute Neut # 12.3 10*3/uL High 1.8 - 7.0 10*3/uL [facility] Basophils/100 WBC (Bld) 0.2 % 0.0 [...] - 10.7 10*3/uL [facility] Test Performed by [employer] [facility], [address] [place], [place], [place] [address] [facility] LAB [facility] Glucose,Bedsideon 03-22-2021 Glucose [Mass/Vol] 134 mg/dL High 70-100 [facility] Comment on above: Result Comment: Test performed by glucose meter. Results may be 10%-15% lower than serum/plasma values. (CLIA ID [id number]) Performed By: #### H EMDF, BMP3 #### [facility] [address] [facility] [place] [address] Glucose [Mass/Vol] 190 mg/dL High 70-100 [facility] Comment on above: Result Comment: Test performed by glucose meter. Results may be 10%-15% lower than serum/plasma values. (CLIA ID [id number]) Performed By: #### B GLU #### [facility] [address] [facility] [place] [address] Glucose [Mass/Vol] 200 mg/dL [facility] [address] Comment on above: Result Comment: Test performed by glucose meter. Results may be 10%-15% lower than serum/plasma values. (CLIA ID [id number]) Performed By: #### B GLU #### [facility] [employer] [facility] [address] [place] [address] Glucose [Mass/Vol] 181 mg/dL [facility] 70-100 [facility] Comment on above: Result Comment: Test performed by glucose meter. Results may be 10%-15% lower than serum/plasma values. (CLIA ID [id number]) Performed By: #### B GLU #### [facility] [address] [facility] [place] [address] Glucose [Mass/Vol] 186 mg/dL [facility] [address] [place] [address] Comment on above: Result Comment: Test performed by glucose meter. Results may be 10%-15% lower than serum/plasma values. (CLIA ID [id number]) Performed By: #### B GLU #### [facility] [employer] [facility] [address] [place] [address] Hemoglobin A1Con 03-22-2021 Glucose [Mass/Vol] 108 mg/dL Normal [facility] Comment on above: Performed By: #### B GLU #### [facility] [address] [place] [address] HbA1c (Bld) [Mass fraction] 5.4 % Normal [facility] Comment on above: Result Comment: Norm al less than 5.7% Prediabetes 5.7% to 6.4% Diabetes 6.5% or higher --HgbA1C levels may not be accurate in patients who have renal disease, received recent blood transfusions, are anemic, or who have dyshemoglobinemia. Performed By: #### B GLU #### [facility] [address] [place] [address] HbA1c (Bld) [Mass fraction] 5.4 % [facility] Comment on above: Normal less than 5.7 % Prediabetes 5.7% to 6.4% Diabetes 6.5% or higher --HgbA1C levels may not be accurate in patients who have renal disease, received recent blood transfusions, are anemic, or who have dyshemoglobinemia. Magnesium [Mass/Vol] 108 mg/dL [facility] Test Performed by [facility], [facility] [address] [place], [place] [address] [facility] LAB [facility] Hemogram w/ Autodiffon 03-22 Abs Baso Cnt 0.0 10*3/uL Normal 0.0-0.2 [facility] Comment on above: Performed By: #### B GLU #### [facility] [address] [place] [address] Abs Neutrophile Cnt 12.3 10*3/uL High 1.8-7.0 [facility] Comment on above: Performed By: #### B GLU #### [facility] [address] [place] [address] Basophils/100 WBC (Bld) 0.2 % Normal 0.0-2.0 [facility] Comment on above: Performed By: #### B GLU #### [place] [address] [place] [address] Eosinophils (Bld) [#/Vol] 0.0 10*3/uL Normal 0.0-0.5 [facility] Comment on above: Performed By: #### B GLU #### [place] [address] [facility] [place] [address] Eosinophils/100 WBC (Bld) 0.0 % Low 1.0-6.0 [facility] Comment on above: Performed By: #### B GLU #### [facility] [address] [place] [address] Erythrocyte distribution width (RBC) [Ratio] 12.8 % Normal 11.5-14.5 [facility] Comment on above: Performed By: #### B GLU #### [facility] [address] [place] [address] Granulocytes/100 WBC (Bld) 92.7 % High 40.0-80.0 [facility] Comment on above: Performed By: #### B GLU #### [facility] [address] [place] [address] Hematocrit (Bld) [Volume fraction] 35.9 % Low 40.0-52.0 [facility] Comment on above: Performed By: #### B GLU #### [facility] [address] [place] [address] Hemoglobin (Bld) [Mass/Vol] 12.4 g/dL Low 13.0-18.0 [facility] Comment on above: Performed By: #### B GLU #### [facility] [address] [place] [address] Lymphocytes (Bld) [#/Vol] 0.5 10*3/uL Low 1.0-4.3 [facility] Comment on above: Performed By: #### B GLU #### [facility] [address] [place] [address] Lymphocytes/100 WBC (Bld) 3.6 % Low 20.0-40.0 [facility] Comment on above: Performed By: #### B GLU #### [facility] [address] [place] [address] MCH (RBC) [Entitic mass] 31.6 pg Normal 26.0-34.0 [facility] Comment on above: Performed By: #### B GLU #### [facility] [address] [place] [address] MCHC 34.6 % Normal 32.0-36.0 [facility] Comment on above: Performed By: #### B GLU #### [facility] [address] [place] [address] MCV (RBC) [Entitic vol] 91.2 fL Normal 80.0-98.0 [facility] Comment on above: Performed By: #### B GLU #### [facility] [address] [place] [address] Monocytes (Bld) [#/Vol] 0.5 10*3/uL Normal 0.0-0.8 [facility] Comment on above: Performed By: #### B GLU #### [facility] [address] [place] [address] Monocytes/100 WBC (Bld) 3.5 % Normal 2.0-10.0 [facility] Comment on above: Performed By: #### B GLU #### [facility] [address] [place] [address] Platelet mean volume (Bld) [Entitic vol] 9.5 fL Normal 7.4-10.4 [facility] Comment on above: Performed By: #### B GLU #### [facility] [address] [place] [address] Platelets (Bld) [#/Vol] 158 10*3/uL Normal 140-440 [facility] Comment on above: Performed By: #### B GLU #### [facility] [address] [place] [address] RBC (Bld) [#/Vol] 3.93 10*6/uL Low 4.40-5.90 [facility] Comment on above: Performed By: #### B GLU #### [facility] [address] [place] [address] WBC (Bld) [#/Vol] 13.3 10*3/uL High 3.6-10.7 [facility] Comment on above: Performed By: #### B GLU #### [facility] [address] [place] [address] MRSA by PCRon 03-22-2021 Staph Aureus Sc No S. aureus detected. Negative nasal MRSA PCR has a high negative predictive value for MRSA pneumonia. Consider stopping vancomycin if no other clinical indication. Contact Antimicrobial Stewardship for further recommendations. The analytical performance characteristics of this assay have been determined by [employer] in accordance with CLIA regulations. The modifications have not been cleared or approved by the U. S. Food and Drug Administration; however, the FDA has determined that such clearance or approval is not necessary. [facility] Test Performed by [employer] [facility], [address] [place] [address] [facility] LAB [facility] POCT GlucoseOrdered By: Same lizy Morgan on 03-22-2021 Glucose [Mass/Vol] 134 mg/dL High 70 - 100 mg/dL [facility] Work Phone: Comment on above: Test performed by gl ucose meter. Results may be 10%-15% lower than serum/plasma values. (CLIA ID [id number]) Interpretation and review of laboratory results Abnormal [facility] Work Phone: [facility] Work Phone: POCT Glucoseon 03-22-2021 Test Performed by [facility], [address] [place], [place] [id number] [place] [address] LAB Glucose [Mass/Vol] 190 mg/dL High 70 - 100 mg/dL [facility] Comment on above: Test performed by gl ucose meter. Results may be 10%-15% lower than serum/plasma values. (CLIA ID [id number]) Interpretation and review of laboratory results Abnormal [facility] Test Performed by [facility] [employer] [facility], [address] LAB [facility] Glucose [Mass/Vol] 200 mg/dL High 70 - 100 mg/dL [facility] Comment on above: Test performed by gl ucose meter. Results may be 10%-15% lower than serum/plasma values. (CLIA ID [id number]) Interpretation and review of laboratory results Abnormal [facility] Test Performed by [facility], [address] LAB [facility] Glucose [Mass/Vol] 181 mg/dL High 70 - 100 mg/dL [facility] Comment on above: Test performed by gl ucose meter. Results may be 10%-15% lower than serum/plasma values. (CLIA ID [id number]) Interpretation and review of laboratory results Abnormal [facility] Test Performed by [facility], [address] [place], [place], [place] [address] [facility] LAB [facility] Glucose [Mass/Vol] 186 mg/dL High 70 - 100 mg/dL [facility] Comment on above: Test performed by gl ucose meter. Results may be 10%-15% lower than serum/plasma values. (CLIA ID [id number]) Interpretation and review of laboratory results Abnormal [facility] Test Performed by [facility], [address] [place], [place], [place] [address] [facility] LAB [facility] Procalcitoninon 03-22-2021 Procalcitonin 0.09 ng/mL Normal 0.00-0.09 [facility] [employer] Comment on above: Performed By: #### H EMD, BMP3 #### [facility] [address] [place] [address] Interpretation See Below [facility] Comment on above: PCT <0.50 = Low risk of severe sepsis and/or septic shock. PCT >2.00 = High risk of severe sepsis and/or septic shock. Procalcitonin 0.09 ng/mL 0.00 - 0.09 ng/mL [facility] Test Performed by [facility] [employer] [facility], [address] [place] [place] [id number] [place] [address] LAB [facility] Staph Aureus Complete Nasalo n 03-22-2021 Staph Aureus Complete Nasal Staph Screen --> Status: F No S. aureus detected. Negative nasal MRSA PCR has a high negative predictive value for MRSA pneumonia. Consider stopping vancomycin if no other clinical indication. Contact Antimicrobial Stewardship for further recommendations. The analytical performance characteristics of this assay have been determined by [employer] in accordance with CLIA regulations. The modifications [...] of this assay have been determined by [employer] in accordance with CLIA regulations. The modifications have not been cleared or approved by the U. S. Food and Drug Administration; however, the FDA has determined that such clearance or approval is not necessary. Normal [facility] Comment on above: Performed By: #### S APCR ####[facility] [place] [address] Vancomycin Troughon 03-22-20 21 Vancomycin Trough 8.1 ug/mL Low 15.0-20.0 [facility] Comment on above: Result Comment: . Performed By: #### B GLU #### [facility] [address] [place] [address] Vancomycin, Troughon 021 Interpretation and review of laboratory results Abnormal [facility] Vancomycin Tr 8.1 ug/mL Low 15.0 - 20.0 ug/mL [facility] Comment on above: . Test Performed by [facility], [address] [address] [facility] LAB [facility] Basic Metabolic Panelon 03-02 Anion gap [Moles/Vol] 7 mmol/L Normal 3-13 [facility] Comment on above: Performed By: #### H MAYKEL BMP3 #### [facility] [address] [place] [address] Calcium [Mass/Vol] 8.1 mg/dL Low 8.4-10.4 [facility] Comment on above: Performed By: #### H MAYKEL BMP3 #### [facility] [address] [place] [address] CO2 [Moles/Vol] 26 mmol/L Normal 22-30 [facility] Comment on above: Performed By: #### H MAYKEL BMP3 #### [facility] [address] [place] [address] Glucose [Mass/Vol] 156 mg/dL High 70-100 [facility] Comment on above: Performed By: #### H EMDF, BMP3 #### [facility] [address] [place] [address] Urea nitrogen [Mass/Vol] 19 mg/dL High 7-17 [facility] Comment on above: Performed By: #### H MAYKEL, BMP3 #### [facility] [address] [place] [address] Creatinine [Mass/Vol] 0.53 mg/dL Normal 0.52-1.25 [facility] Comment on above: Performed By: #### H MAYKEL BMP3 #### [facility] [address] [place] [address] eGFR OTHER > 90.0 Normal >60 [facility] Comment on above: Result Comment: KDIG [...] Performed By: #### H MAYKEL BMP3 #### [facility] [address] [place] [address] GFR/1.73 sq M.predicted among blacks MDRD (S/P/Bld) [Vol rate/Area] mL/min/{1.73_m2} Normal >60 [facility] Comment on above: Performed By: #### Kerri BRAR BMP3 #### [facility] [address] [place] [address] Chloride [Moles/Vol] 103 mmol/L Normal 98-107 [facility] Comment on above: Performed By: #### H MAYKEL BMP3 #### [facility] [address] [place] [address] Potassium [Moles/Vol] 3.4 mmol/L Low 3.5-5.1 [facility] Comment on above: Performed By: #### Kerri BRAR BMP3 #### [facility] [address] [place] [address] Sodium [Moles/Vol] 136 mmol/L Normal 135-145 [facility] Comment on above: Performed By: #### H EMD, BMP3 #### [employer] [address] [place] [address] Basic Metabolic Panel w/ Ref marciano to MGon 03-21-2021 Anion gap [Moles/Vol] 7 mmol/L 3 - 13 mmol/L [employer] Work Phone: Calcium [Mass/Vol] 8.1 mg/dL Low 8.4 - 10. 4 mg/dL [employer] Work Phone: Chloride [Moles/Vol] 103 mmol/L 98 - 10 7 mmol/L [employer] Work Phone: CO2 [Moles/Vol] 26 mmol/L 22 - 30 mmol/L [employer] Work Phone: Creatinine [Mass/Vol] 0.53 mg/dL 0.52 - 1.25 mg/dL [employer] Work Phone: EGFR IF NonAfrican Bhutanese >90.0 >60 mL/min [employer] Work Phone: Comment on above: KDIGO guidelines [...] MDRD (S/P/Bld) [Vol rate/Area] mL/min/{1.73_m2} >60 mL/min [facility] Work Phone: Glucose [Mass/Vol] 156 mg/dL High 70 - 100 mg/dL [employer] Work Phone: Interpretation and review of laboratory results Abnormal [facility] Work Phone: Potassium [Moles/Vol] 3.4 mmol/L Low 3.5 - 5.1 mmol/L [employer] Work Phone: Sodium [Moles/Vol] 136 mmol/L 135 - 145 mmol/L [facility] Work Phone: Urea nitrogen (BldV) [Mass/Vol] 19 mg/dL High 7 - 17 mg/dL [facility] Work Phone: Test Performed by [facility], [address] [place], [place] [id number] [place] [address] LAB [facility] Work Phone: CBCon 03-21-2021 Hematocrit (Bld) [Volume fraction] 35.4 % Low 40.0 - 52.0 % [facility] Work Phone: Hemoglobin.gastrointest inal spec 1 Ql (Stl) 11.9 g/dL Low 13.0 - 18.0 g/dL [facility] Work Phone: Interpretation and review of laboratory results Abnormal [facility] Work Phone: MCH (RBC) [Entitic mass] 30.5 pg 26.0 - 34.0 pg [facility] Work Phone: MCHC (RBC) [Mass/Vol] 33.7 % 32.0 - 36.0 % [facility] Work Phone: MCV (RBC) [Entitic vol] 90.6 fL 80.0 - 98.0 fL [employer] Work Phone: Platelet distribution width (Bld) [Ratio] 13.1 % 11.5 - 14.5 % [facility] Work Phone: Platelet mean volume (Bld) [Entitic vol] 9.1 fL 7.4 - 10.4 fL [employer] Work Phone: Platelets (Bld) [#/Vol] 136 10*3/uL Low 140 - 440 10*3/uL [facility] Work Phone: RBC (Bld) [#/Vol] 3.91 10*6/uL Low 4.40 - 5.9 0 10*6/uL [facility] Work Phone: WBC (Bld) [#/Vol] 7.1 10*3/uL 3.6 - 10.7 10*3/uL [employer] Work Phone: Test Performed by [facility], [address] [place], [place] [address] [facility] Work Phone: Glucose,Bedsideon 03-21-2021 Glucose [Mass/Vol] 131 mg/dL High 70-100 [facility] Comment on above: Result Comment: Test performed by glucose meter. Results may be 10%-15% lower than serum/plasma values. (CLIA ID [id number]) Performed By: #### B GLU #### [facility] [address] [place] [address] Glucose [Mass/Vol] 230 mg/dL High 70-100 [facility] Comment on above: Result Comment: Test performed by glucose meter. Results may be 10%-15% lower than serum/plasma values. (CLIA ID [id number]) Performed By: #### B GLU #### [facility] [address] [place] [address] Hemogramon 03-21-2021 Erythrocyte distribution width (RBC) [Ratio] 13.1 % Normal 11.5-14.5 [facility] Comment on above: Performed By: #### H EMDF, BMP3 #### [facility] [address] [place] [address] Hematocrit (Bld) [Volume fraction] 35.4 % Low 40.0-52.0 [facility] Comment on above: Performed By: #### H EMDF, BMP3 #### [facility] [address] [place] [address] Hemoglobin (Bld) [Mass/Vol] 11.9 g/dL Low 13.0-18.0 [facility] Comment on above: Performed By: #### H EMDF, BMP3 #### [facility] [address] [place] [address] MCH (RBC) [Entitic mass] 30.5 pg Normal 26.0-34.0 [facility] Comment on above: Performed By: #### H EMDF, BMP3 #### [facility] [address] [place] [address] MCHC 33.7 % Normal 32.0-36.0 [facility] Comment on above: Performed By: #### H EMDF, BMP3 #### [facility] [address] [place] [address] MCV (RBC) [Entitic vol] 90.6 fL Normal 80.0-98.0 [facility] Comment on above: Performed By: #### H EMDF, BMP3 #### [facility] [address] [place] [address] Platelet mean volume (Bld) [Entitic vol] 9.1 fL Normal 7.4-10.4 [facility] Comment on above: Performed By: #### H EMDF, BMP3 #### [facility] [address] [place] [address] Platelets (Bld) [#/Vol] 136 10*3/uL Low 140-440 [facility] Comment on above: Performed By: #### H EMDF, BMP3 #### [facility] [address] [place] [address] RBC (Bld) [#/Vol] 3.91 10*6/uL Low 4.40-5.90 [facility] Comment on above: Performed By: #### H EMDF, BMP3 #### [facility] [address] [place] [address] WBC (Bld) [#/Vol] 7.1 10*3/uL Normal 3.6-10.7 [facility] Comment on above: Performed By: #### H EMDF, BMP3 #### [facility] [address] [place] [address] Magnesiumon 03-21-2021 Magnesium [Mass/Vol] 2.2 mg/dL Normal 1.6-2.3 [facility] Comment on above: Performed By: #### H EMDF, BMP3 #### [facility] [address] [place] [address] Magnesium [Mass/Vol] 2.2 mg/dL 1.6 - 2 .3 mg/dL [facility] Work Phone: Test Performed by [facility], [address] [place], [place] [id number] [place] [address] [facility] Work Phone: POCT Glucoseon 03-21-2021 Glucose [Mass/Vol] 131 mg/dL High 70 - 100 mg/dL [facility] Comment on above: Test performed by gl ucose meter. Results may be 10%-15% lower than serum/plasma values. (CLIA ID [id number]) Interpretation and review of laboratory results Abnormal [facility] Test Performed by [facility], [address] [place], [place] [id number] [place] [address] [facility] Glucose [Mass/Vol] 230 mg/dL High 70 - 100 mg/dL [facility] Comment on above: Test performed by gl ucose meter. Results may be 10%-15% lower than serum/plasma values. (CLIA ID [id number]) Interpretation and review of laboratory results Abnormal [facility] Test Performed by [facility], [address] [place], [place] [id number] [place] [address] [facility] Procalcitoninon 03-21-2021 Interpretation See Below Normal [facility] Comment on above: Result Comment: PCT <0.50 = Low risk of severe sepsis and/or septic shock. PCT >2.00 = High risk of severe sepsis and/or septic shock. Performed By: #### H EMDF, BMP3 #### [facility] [address] [place] [address] Basic Metabolic Panelon 03-02 Calcium [Mass/Vol] 8.4 mg/dL Normal 8.4-10.4 [facility] Comment on above: Performed By: #### H EMDF, BMP3 #### [facility] [address] [place] [address] Anion gap [Moles/Vol] 6 mmol/L Normal 3-13 [facility] Comment on above: Performed By: #### H EMDF, BMP3 #### [facility] [address] [place] [address] CO2 [Moles/Vol] 27 mmol/L Normal 22-30 [facility] Comment on above: Performed By: #### H EMDF, BMP3 #### [facility] [address] [place] [address] Glucose [Mass/Vol] 106 mg/dL High 70-100 [facility] Comment on above: Performed By: #### H EMDF, BMP3 #### [facility] [address] [place] [address] Urea nitrogen [Mass/Vol] 14 mg/dL Normal 7-17 [facility] Comment on above: Performed By: #### H EMDF, BMP3 #### [facility] [address] [place] [address] Creatinine [Mass/Vol] 0.51 mg/dL Low 0.52-1.25 [facility] Comment on above: Performed By: #### H EMDF, BMP3 #### [facility] [address] [place] [address] eGFR OTHER > 90.0 Normal >60 [facility] Comment on above: Result Comment: KDIG [...] Performed By: #### H EMDF, BMP3 #### [facility] [address] [place] [address] GFR/1.73 sq M.predicted among blacks MDRD (S/P/Bld) [Vol rate/Area] mL/min/{1.73_m2} Normal >60 [facility] Comment on above: Performed By: #### H EMDF, BMP3 #### [facility] [address] [place] [address] Chloride [Moles/Vol] 104 mmol/L Normal 98-107 [facility] Comment on above: Performed By: #### H EMDF, BMP3 #### [facility] [address] [place] [address] Potassium [Moles/Vol] 3.9 mmol/L Normal 3.5-5.1 [facility] Comment on above: Performed By: #### H EMDF, BMP3 #### [facility] [address] [place] [address] Sodium [Moles/Vol] 137 mmol/L Normal 135-145 [facility] Comment on above: Performed By: #### H EMDF, BMP3 #### [facility] [address] [place] [address] Anion gap [Moles/Vol] 6 mmol/L 3 - 13 mmol/L [facility] Work Phone: Calcium [Mass/Vol] 8.4 mg/dL 8.4 - 10. 4 mg/dL [facility] Work Phone: Chloride [Moles/Vol] 104 mmol/L 98 - 10 7 mmol/L [facility] Work Phone: CO2 [Moles/Vol] 27 mmol/L 22 - 30 mmol/L [facility] Work Phone: Creatinine [Mass/Vol] 0.51 mg/dL Low 0.52 - 1.25 mg/dL [facility] Work Phone: EGFR IF NonAfrican Bhutanese >90.0 >60 mL/min [facility] Work Phone: Comment on above: KDIGO [...] MDRD (S/P/Bld) [Vol rate/Area] mL/min/{1.73_m2} >60 mL/min [employer] Work Phone: Glucose [Mass/Vol] 106 mg/dL High 70 - 100 mg/dL [employer] Work Phone: Interpretation and review of laboratory results Abnormal [facility] Work Phone: Potassium [Moles/Vol] 3.9 mmol/L 3.5 - 5.1 mmol/L [employer] Work Phone: Sodium [Moles/Vol] 137 mmol/L 135 - 145 mmol/L [facility] Work Phone: Urea nitrogen (BldV) [Mass/Vol] 14 mg/dL 7 - 17 mg/dL [employer] Work Phone: Test Performed by [employer], [address] [place], [place] [address] [facility] LAB [facility] Work Phone: C-Reactive Proteinon 11-20-2 021 CRP [Mass/Vol] 228.1 mg/L High 0.0-9.9 [facility] Comment on above: Result Comment: . Performed By: #### H EMDF, BMP3 #### [employer] [address] [place] [address] CRP [Mass/Vol] 228.1 mg/L High 0.0 - 9.9 mg/L [facility] Work Phone: Comment on above: . Interpretation and review of laboratory results Abnormal [employer] Work Phone: Test Performed by [employer] [facility], [address] [place], [place] [phone] [place] [address] [facility] Work Phone: COVID and Resp PCR [...] pneumoniae, Mycoplasma pneumoniae. Method: Real-time PCR. 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1955 Requested By: BRADY DESAI Order Number: [id number] Reading MD: Fei Menjivar Measurements Intervals Milam Rate: 102 P: 71 ID: [id number] QRS: -30 QRSD: 156 T: 85 QT: 412 QTc: 537 Interpretive Statements SINUS TACHYCARDIA LEFT BUNDLE BRANCH BLOCK Electronically Signed On 03-20-2021 22:47:41 EST by Fei BARNETT CARDIOLOGY Ti[place], Fei Cotto MD - 03/20/2021 [employer] Test Date: 2021-03-19 Pat Name: KATHYA HOOPER Department: 1 Room: [facility] 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1955 Requested By: BRADY DESAI Order Number: [id number] Reading MD: Fei Menjivar Measurements Intervals [place] Rate: 102 P: 71 ID: [id number] QRS: -30 QRSD: 156 T: 85 QT: 412 QTc: 537 Interpretive Statements SINUS TACHYCARDIA LEFT BUNDLE BRANCH BLOCK Electronically Signed On 03-20-2021 22:47:41 EST by Fei Menjivar [facility] Work Phone: EKG 12 Lead - Chest PainOrde red By: Fei Menjivar on 03-20-2021 [employer] Work Phone: Lactic Acidon 03-20-2021 Lactate [Moles/Vol] 0.7 mmol/L Normal 0.7-2.0 [facility] [employer] Comment on above: Performed By: #### H EMD, BMP3 #### [employer] [facility] [place] [address] Lactic Acid, Plasmaon 2020 Lactate [Moles/Vol] 0.7 mmol/L 0.7 - 2. 0 mmol/L [employer] Work Phone: Test Performed by [employer], [address] [place] [address] [place], [place] [address] [facility] LAB [facility] Work Phone: PROCALCITONINon 03-20-2021 Interpretation See Below [employer] Work Phone: Comment on above: PCT <0.50 = Low risk of severe sepsis and/or septic shock. PCT >2.00 = High risk of severe sepsis and/or septic shock. Interpretation and review of laboratory results Abnormal [facility] Work Phone: Test Performed by [facility], [address] [place] [address] [facility] Work Phone: Procalcitoninon 03-20-2021 Procalcitonin 0.14 ng/mL High 0.00-0.09 [facility] Work Phone: Comment on above: Performed By: #### H EMDF, BMP3 #### [facility] [address] [place] [address] Interpretation See Below Normal [facility] Comment on above: Result Comment: PCT <0.50 = Low risk of severe sepsis and/or septic shock. PCT >2.00 = High risk of severe sepsis and/or septic shock. Performed By: #### H EMDF, BMP3 #### [facility] [address] [place] [address] Troponinon 03-20-2021 Interpretation and review of laboratory results Abnormal [facility] Work Phone: Troponin I.cardiac [Mass/Vol] 0.037 ng/mL High 0.000 - 0.034 ng/mL [facility] Work Phone: Comment on above: . Test Performed by [facility] [employer], [address] [place], [place] [id number] [place] [address] [facility] Work Phone: Troponin Ion 03-20-2021 Troponin I.cardiac [Mass/Vol] 0.037 ng/mL High 0.000-0.034 [facility] Comment on above: Result Comment: . Performed By: #### H EMDF, BMP3 #### [facility] [address] [place] [address] Arterial Blood Gas Respirato yasmine 03-19-2021 Base Excess 1.2 mmol/L Normal -3.0-3.0 [facility] Comment on above: Performed By: #### B GLU #### [facility] [address] [place] [address] CO2 [Moles/Vol] 25.6 mmol/L Normal 23.0-27.0 [facility] Comment on above: Performed By: #### B GLU #### [facility] [address] [place] [address] FIO2 5 Normal [facility] Comment on above: Result Comment: Perf ormed by CLIA ID: [id number] [place], [place] Performed By: #### B GLU #### [facility] [address] [place] [address] HCO3 (Bld) [Moles/Vol] 24.6 mmol/L Normal 21.0-25.0 [facility] Comment on above: Performed By: #### B GLU #### [facility] [address] [place] [address] Oxygen (Bld) [Partial pressure] 56.7 mm[Hg] Low 80.0-100.0 [facility] Comment on above: Performed By: #### B GLU #### [facility] [address] [place] [address] Oxygen saturation in Blood 91.0 % Low 95.0-100.0 [facility] Comment on above: Performed By: #### B GLU #### [facility] [address] [place] [address] pCO2 33.9 mm[Hg] Low 35.0-45.0 [facility] Comment on above: Performed By: #### B GLU #### [facility] [address] [place] [address] pH 7.468 High 7.350-7.450 [facility] Comment on above: Performed By: #### B GLU #### [facility] [address] [place] [address] Basic Metabolic Panelon 11-1 Anion gap [Moles/Vol] 9 mmol/L Normal 3-13 [facility] Comment on above: Performed By: #### B MP3, TROPN ####[facility] [place] [address] Calcium [Mass/Vol] 8.5 mg/dL Normal 8.4-10.4 [facility] Comment on above: Performed By: #### B MP3, TROPN ####[facility] [place] [address] CO2 [Moles/Vol] 26 mmol/L Normal 22-30 [facility] Comment on above: Performed By: #### B MP3, TROPN ####[facility] [place] [address] Creatinine [Mass/Vol] 0.48 mg/dL Low 0.52-1.25 [facility] Comment on above: Performed By: #### B MP3, TROPN ####[place] [address] [place] [address] eGFR OTHER > 90.0 Normal >60 [facility] Comment on above: Result Comment: KDIG [...] secretion. Performed By: #### Anamika MP3, TROPN ####[facility] [place] [address] GFR/1.73 sq M.predicted among blacks MDRD (S/P/Bld) [Vol rate/Area] mL/min/{1.73_m2} Normal >60 [facility] Comment on above: Performed By: #### B MP3, TROPN ####[facility] [place] [address] Glucose [Mass/Vol] 132 mg/dL High 70-100 [facility] Comment on above: Performed By: #### B MP3, TROPN ####[facility] [place] [address] Urea nitrogen [Mass/Vol] 16 mg/dL Normal 7-17 [facility] Comment on above: Performed By: #### B MP3, TROPN ####[facility] [place] [address] Chloride [Moles/Vol] 102 mmol/L Normal 98-107 [facility] Comment on above: Performed By: #### B MP3, TROPN ####[facility] [place] [address] Potassium [Moles/Vol] 4.1 mmol/L Normal 3.5-5.1 [facility] Comment on above: Performed By: #### B MP3, TROPN ####[facility] [place] [address] Sodium [Moles/Vol] 137 mmol/L Normal 135-145 [facility] Comment on above: Performed By: #### B MP3, TROPN ####[facility] [place] [address] Anion gap [Moles/Vol] 9 mmol/L 3 - 13 mmol/L [facility] Calcium [Mass/Vol] 8.5 mg/dL 8.4 - 10. 4 mg/dL [facility] Chloride [Moles/Vol] 102 mmol/L 98 - 10 7 mmol/L [facility] CO2 [Moles/Vol] 26 mmol/L 22 - 30 mmol/L [facility] Creatinine [Mass/Vol] 0.48 mg/dL Low 0.52 - 1.25 mg/dL [facility] EGFR IF NonAfrican Bhutanese >90.0 >60 mL/min [facility] Comment on above: KDIGO guidelines pro [...] [Mass/Vol] 16 mg/dL 7 - 17 mg/dL [facility] Test Performed by [facility], [address] [place] [address] [facility] CBC Auto Differentialon 03-01 Absolute Baso # 0.1 10*3/uL 0.0 - 0.2 10*3/uL [facility] Absolute Neut # 7.2 10*3/uL High 1.8 - 7.0 10*3/uL [facility] Hemoglobin.gastrointest inal spec 1 Ql (Stl) 13.1 g/dL 13.0 - 18.0 g/dL [facility] MCHC (RBC) [Mass/Vol] 33.9 % 32.0 - 36.0 % [facility] Platelet distribution width (Bld) [Ratio] 13.0 % 11.5 - 14.5 % [facility] COVID-19, Flu A/B, and RSV C omboon 03-19-2021 Influenza A by PCR Not detected [facility] A Influenza B by PCR Not detected [facility] A Interpretation and review of laboratory results Abnormal [facility] RSV PCR DETECTED Expected Result: Not Detected _ Method: Real-time, RT-PCR This assay was developed by [employer] and distributed under an Emergency Use Authorization (EUA) granted by the FDA for the qualitative detection of nucleic acids from SARS-CoV-2, Influenza A, Influenza B, and Respiratory Syncytial Virus. Provider and patient fact sheets can be found at https://www.fda.gov/m edia/598101/download and https://www.fda.gov/m edia/918753/download. Abnormal [facility] SARS-CoV-2 (COVID-19) RNA SHIRLEY+probe Ql (Unsp spec) Not detected [facility] Test Performed by [facility], [address] [place], [place] [id number] [place] [address] LAB [facility] CR Chest Portableon 03-19-20 21 CR Chest Portable Patient Name: KATHYA HOOPER Diagnostic Radiology ACCESSION EXAM DATE/TIME PROCEDURE ORDERING PROVIDER [id number] 03/19/2021 17:10 EST CR Chest Portable [id number] BRADY WILKINS CPT code 97653 Reason For Exam (CR Chest Portable) hypoxia [...] Transcribed Date and Time: 03/19/2021 5:22 Normal [facility] ED Provider Noteon ED Provider Note Emergency Department Encounter [facility] ED Patient: Kathya Hooper : 1955 Date of Evaluation: 03/19/2021 ED Provider: Brady Desai DO Chief Complaint Chief Complaint Patient presents with ? Shortness of Breath [place] I wore appropriate PPE for the entirety of this encounter. Does this patient come from an ECF, SNF, Rehab, Long Term or other Congregate setting: yes (If yes [...] otherwise acutely negative except as in the [place]. Past History Past Medical History: Diagnosis Date [...] and Family: Not on file ? Attends Scientology Services: Not on file ? Active Member [...] TABLET T (more content not included)... [facility] Aut[facility] Abs Baso Cnt 0.1 10*3/uL Normal 0.0-0.2 [facility] Comment on above: Performed By: #### B GLU #### [facility] [address] [place] [address] Abs Neutrophile Cnt 7.2 10*3/uL High 1.8-7.0 [facility] Comment on above: Performed By: #### B GLU #### [facility] [address] [place] [address] Basophils/100 WBC (Bld) 0.6 % Normal 0.0-2.0 [facility] Comment on above: Performed By: #### B GLU #### [place] [address] [place] [address] Eosinophils (Bld) [#/Vol] 0.0 10*3/uL Normal 0.0-0.[address] [facility] Comment on above: Performed By: #### B GLU #### [place] [address] [place] [address] Eosinophils/100 WBC (Bld) 0.2 % Low 1.0-6.[address] [facility] Comment on above: Performed By: #### B GLU #### [place] [address] [place] [address] Erythrocyte distribution width (RBC) [Ratio] 13.0 % Normal 11.5-14.5 [facility] Comment on above: Performed By: #### B GLU #### [facility] [address] [place] [address] Granulocytes/100 WBC (Bld) 79.0 % Normal 40.0-80.[address] [facility] Comment on above: Performed By: #### B GLU #### [facility] [address] [place] [address] Hematocrit (Bld) [Volume fraction] 38.5 % Low 40.0-52.[address] [facility] Comment on above: Performed By: #### B GLU #### [facility] [address] [place] [address] Hemoglobin (Bld) [Mass/Vol] 13.1 g/dL Normal 13.0-18.0 [facility] Comment on above: Performed By: #### B GLU #### [place] [address] [place] [address] Lymphocytes (Bld) [#/Vol] 1.0 10*3/uL Normal 1.0-4.3 [facility] Comment on above: Performed By: #### B GLU #### [facility] [address] [place] [address] Lymphocytes/100 WBC (Bld) 10.8 % Low 20.0-40.0 [facility] Comment on above: Performed By: #### B GLU #### [facility] [address] [place] [address] MCH (RBC) [Entitic mass] 30.9 pg Normal 26.0-34.0 [facility] Comment on above: Performed By: #### B GLU #### [facility] [address] [place] [address] MCHC 33.9 % Normal 32.0-36.0 [facility] Comment on above: Performed By: #### B GLU #### [facility] [address] [place] [address] MCV (RBC) [Entitic vol] 91.1 fL Normal 80.0-98.0 [facility] Comment on above: Performed By: #### B GLU #### [facility] [address] [place] [address] Monocytes (Bld) [#/Vol] 0.9 10*3/uL High 0.0-0.8 [facility] Comment on above: Performed By: #### B GLU #### [facility] [address] [place] [address] Monocytes/100 WBC (Bld) 9.4 % Normal 2.0-10.0 [facility] Comment on above: Performed By: #### B GLU #### [facility] [address] [place] [address] Platelet mean volume (Bld) [Entitic vol] 9.9 fL Normal 7.4-10.4 [facility] Comment on above: Performed By: #### B GLU #### [facility] [address] [place] [address] Platelets (Bld) [#/Vol] 163 10*3/uL Normal 140-440 [facility] Comment on above: Performed By: #### B GLU #### [facility] [address] [place] [address] RBC (Bld) [#/Vol] 4.23 10*6/uL Low 4.40-5.90 [facility] Comment on above: Performed By: #### B GLU #### [facility] [address] [place] [address] WBC (Bld) [#/Vol] 9.1 10*3/uL Normal 3.6-10.7 [facility] Comment on above: Performed By: #### B GLU #### [facility] [address] [place] [address] Lactic Acidon 03-19-2021 Lactate [Moles/Vol] 2.3 mmol/L Critically high 0.7-2.0 [facility] Comment on above: Performed By: #### L ACT3 ####[facility] [place] [address] Lactic Acid, Plasmaon 2020 Lactate [Moles/Vol] 2.3 mmol/L Critically high 0.7 - 2.0 mmol/L [facility] No Panel Informationon 03-19 Interpretation and review of laboratory results Abnormal [facility] Test Performed by [facility], [facility] [address] [place], [place] [address] [facility] RBC MORPHOLOGYon 03-19-2021 Poikilocytes Slight [facility] RBC (Bld) [#/Vol] ABNORMAL [facility] Tear Drop Cells Slight [facility] RBC Morphologyon 03-19-2021 Ovalocytes Slight Normal [facility] Comment on above: Performed By: #### B GLU #### [facility] [address] [place] [address] Poikilocytosis Slight [facility] Comment on above: Performed By: #### B GLU #### [facility] [address] [place] [address] Polychromasia Slight Normal [facility] Comment on above: Performed By: #### B GLU #### [facility] [address] [place] [address] RBC morphology finding Nom (Bld) ABNORMAL Normal [facility] Comment on above: Performed By: #### B GLU #### [facility] [address] [place] [address] Tear Drop Forms Slight Normal [facility] Comment on above: Performed By: #### B GLU #### [facility] [address] [place] [address] Respiratory Panel, Molecular , with COVID-19 (Restricted: peds pts or suitable admitted adults)on 03-19-2021 Interpretation and review of laboratory results Abnormal [facility] Respiratory Panel Molecular, with COVID POSITIVE: Respiratory Syncytial Virus DETECTED. _ Expected Result: Not Detected [employer] Upper Respiratory Pathogens PCR Panel can detect the following targets: SARS-CoV-2, Adenovirus, Coronavirus 229E, Coronavirus HKU1, Coronavirus NL63, Coronavirus OC43, Human Metapneumovirus, Human Rhinovirus/Enteroviru s, Influenza A, Influenza B, Parainfluenza Virus 1, Parainfluenza Virus 2, Parainfluenza Virus 3, Parainfluenza Virus 4, Respiratory Syncytial Virus, Bordetella pertussis, Bordetella parapertussis, Chlamydia pneumoniae, Mycoplasma pneumoniae. Method: Real-time PCR. Abnormal [facility] Test Performed by [facility], [address] [place] [address], [place] [address] [facility] SARS-CoV-2, Flu A/B and RSVo n 03-19-2021 SARS-CoV-2 (COVID-19) RNA SHIRLEY+probe Ql (Unsp spec) SARS-CoV-2 --> Status: F Not Detected. Flu A PCR --> Status: F Not Detected. Flu B PCR --> Status: F Not Detected. RSV PCR --> Status: F DETECTED Expected Result: Not Detected _ Method: Real-time, RT-PCR This assay was developed by [employer] and distributed under an Emergency Use Authorization (EUA) granted by the FDA for the qualitative detection of nucleic acids from SARS-CoV-2, Influenza A, Influenza B, and Respiratory Syncytial Virus. Provider and patient fact sheets can be found at https://www.fda.gov/m edia/720683/download and https://www.fda.gov/m edia/219064/download. Expected Result: Not Detected _ Method: Real-time, RT-PCR This assay was developed by [employer] and distributed under an Emergency Use Authorization (EUA) granted by the FDA for the qualitative detection of nucleic acids from SARS-CoV-2, Influenza A, Influenza B, and Respiratory Syncytial Virus. Provider and patient fact sheets can be found at https://www.fda.gov/m edia/341674/download and https://www.fda.gov/m edia/082744/download. Abnormal [facility] Comment on above: Performed By: #### C VFLR #### [facility] [address] [place] [address] , [address] Troponinon 03-19-2021 Troponin I.cardiac [Mass/Vol] 0.017 ng/mL 0.000 - 0.034 ng/mL [facility] Comment on above: . Test Performed by [facility], [address] [place], [place] [address] [facility] Troponin Ion 03-19-2021 Troponin I.cardiac [Mass/Vol] 0.017 ng/mL Normal 0.000-0.034 [facility] Comment on above: Result Comment: . Performed By: #### B MP3, TROPN ####[facility] [place] [address] XR CHEST PORTABLEon 03-19-20 Patient Name: KATHYA HOOPER Diagnostic Radiology ACCESSION EXAM DATE/TIME PROCEDURE ORDERING PROVIDER [id number] 03/19/2021 17:10 EST CR Chest Portable [id number] -BRADY DESAI CPT code 58405 Reason For Exam (CR Chest Portable) hypoxia [...] J Transcribed Date and Time: 03/19/2021 5:22 [facility] Keshawn Simpson MD - 03/19/2021 Patient Name: KATHYA HOOPER Diagnostic Radiology ACCESSION EXAM DATE/TIME PROCEDURE ORDERING PROVIDER [id number] 03/19/2021 17:10 EST CR Chest Portable [id number] -BRADY DESAI CPT code 20963 Reason For Exam (CR Chest Portable) hypoxia [...] Date and Time: 03/19/2021 5:[address] [facility] Work Phone: Radiology Study observation (narrative) [facility] Work Phone: XR CHEST PORTABLEOrdered By: Keshawn Simpson on 03-19-[address] [facility] Work Phone: Basic Metabolic Panelon 03-01 Calcium [Mass/Vol] 8.4 mg/dL Normal 8.4-10.4 [facility] Comment on above: Performed By: #### H MAYKEL BMP3 #### [facility] [address] [place] [address] Glucose [Mass/Vol] 110 mg/dL High 70-100 [facility] Comment on above: Performed By: #### H MAYKEL BMP3 #### [facility] [address] [place] [address] Anion gap [Moles/Vol] 7 mmol/L Normal 3-13 [facility] Comment on above: Performed By: #### H MAYKEL BMP3 #### [facility] [address] [place] [address] CO2 [Moles/Vol] 26 mmol/L Normal 22-30 [facility] Comment on above: Performed By: #### H MAYKEL BMP3 #### [facility] [address] [place] [address] Creatinine [Mass/Vol] 0.54 mg/dL Normal 0.52-1.25 [facility] Comment on above: Performed By: #### H MAYKEL BMP3 #### [facility] [address] [place] [address] eGFR OTHER > 90.0 Normal >60 [facility] Comment on above: Result Comment: KDIG [...] Performed By: #### H MAYKEL BMP3 #### [facility] [address] [place] [address] GFR/1.73 sq M.predicted among blacks MDRD (S/P/Bld) [Vol rate/Area] mL/min/{1.73_m2} Normal >60 [facility] Comment on above: Performed By: #### H MAYKEL BMP3 #### [facility] [address] [place] [address] Urea nitrogen [Mass/Vol] 18 mg/dL High 7-17 [facility] Comment on above: Performed By: #### H MAYKEL BMP3 #### [facility] [address] [place] [address] Potassium [Moles/Vol] 3.9 mmol/L Normal 3.5-5.1 [facility] Comment on above: Performed By: #### H EMDF, BMP3 #### [facility] [address] [place] [address] Chloride [Moles/Vol] 104 mmol/L Normal 98-107 [facility] Comment on above: Performed By: #### H EMDF, BMP3 #### [facility] [address] [place] [address] Sodium [Moles/Vol] 137 mmol/L Normal 135-145 [facility] Comment on above: Performed By: #### H EMDF, BMP3 #### [facility] [address] [place] [address] Anion gap [Moles/Vol] 7 mmol/L 3 - 13 mmol/L [facility] Calcium [Mass/Vol] 8.4 mg/dL 8.4 - 10. 4 mg/dL [facility] Chloride [Moles/Vol] 104 mmol/L 98 - 10 7 mmol/L [facility] CO2 [Moles/Vol] 26 mmol/L 22 - 30 mmol/L [facility] Creatinine [Mass/Vol] 0.54 mg/dL 0.52 - 1.25 mg/dL [facility] EGFR IF NonAfrican Bhutanese >90.0 >60 mL/min [facility] Comment on above: KDIGO guidelines pro [...] 110 mg/dL High 70 - 100 mg/dL [facility] Interpretation and review of laboratory results Abnormal [facility] Potassium [Moles/Vol] 3.9 mmol/L 3.5 - 5.1 mmol/L [facility] Sodium [Moles/Vol] 137 mmol/L 135 - 145 mmol/L [facility] Urea nitrogen (BldV) [Mass/Vol] 18 mg/dL High 7 - 17 mg/dL [facility] Brain Natriuretic Peptideon 03-18-2021 Interpretation and review of laboratory results Abnormal [facility] Natriuretic peptide B (Bld) [Mass/Vol] 710 pg/mL High 0 - 125 pg/mL [facility] Test Performed by [facility], [address] [place] [address] [facility] CBC Auto Differentialon 03-01 Absolute Baso [...] (Stl) 13.6 g/dL 13.0 - 18.0 g/dL [facility] Interpretation and review of laboratory results [...] - 10.7 10*3/uL [facility] Test Performed by [facility], [address] LAB [facility] COVID-19, Flu A/B, and RSV C omboon 03-18-2021 Influenza A by PCR Not detected [facility] Influenza B by PCR Not detected [facility] Interpretation and review of laboratory results Abnormal [facility] RSV PCR DETECTED Expected Result: Not Detected _ Method: Real-time, RT-PCR This assay was developed by [employer] and distributed under an Emergency Use Authorization (EUA) granted by the FDA for the qualitative detection of nucleic acids from SARS-CoV-2, Influenza A, Influenza B, and Respiratory Syncytial Virus. Provider and patient fact sheets can be found at https://www.fda.gov/m edia/497165/download and https://www.fda.gov/m edia/115616/download. Abnormal [facility] SARS-CoV-2 (COVID-19) RNA SHIRLEY+probe Ql (Unsp spec) Not detected [facility] Test Performed by [facility], [address] LAB [facility] CR Chest Portableon 03-18-20 21 CR Chest Portable Patient Name: KATHYA HOOPER Diagnostic Radiology ACCESSION EXAM DATE/TIME PROCEDURE ORDERING PROVIDER [id number] 03/18/2021 15:30 EST CR Chest Portable [id number] -BOO CASTRO CPT code 65619 Reason For Exam (CR Chest Portable) sob, [...] Transcribed Date and Time: 03/18/2021 3:35 Normal [facility] CTA Chest W WO (PE study)on 03-18-2021 Patient Name: KATHYA HOOPER Computed Tomography ACCESSION EXAM DATE/TIME PROCEDURE ORDERING PROVIDER [id number] 03/18/2021 16:27 EST CTA Chest w/ + w/o [id number] -Alyson CASTRO CPT code 75503 Q9967 Reason For Exam (CTA Chest w/ + w/o Contrast) pulmonary embolus Report CTA chest with and without contrast History: chest pain Protocol: 1 mm images after IV contrast, 3D rendering performed by wv on a separate workstation No evidence of aortic dissection or pulmonary embolism. Patchy scattered bilateral lung infiltrates. Minimal left pleural effusion. No lymphadenopathy. IMPRESSION: Patchy scattered bilateral lung infiltrates. Minimal left pleural effusion. Report Dictated on --- Final --- Dictating Physician: MD MICHAELS MALAY Signed Date and Time: 03/18/2021 4:35 pm Signed by: MD MICHAELS MALAY Transcribed Date and Time: 03/18/2021 4:36 [facility] Malcolm Michaels MD - 03/18/2021 Patient Name: KATHYA HOOPER Computed Tomography ACCESSION EXAM DATE/TIME PROCEDURE ORDERING PROVIDER [id number] 03/18/2021 16:27 EST CTA Chest w/ + w/o [id number] -CASTRO, Contrast BOO CPT code 13678 Q9967 Reason For Exam (CTA Chest w/ [...] Chest w/ + w/o Contrast Patient Name: AKTHYA HOOPER Computed Tomography ACCESSION EXAM DATE/TIME PROCEDURE ORDERING PROVIDER [id number] 03/18/2021 16:27 EST CTA Chest w/ + w/o [id number] -CASTRO, Contrast BOO CPT code 01992 Q9967 Reason For Exam (CTA Chest w/ + w/o Contrast) pulmonary embolus Report CTA chest with and without contrast History: chest pain Protocol: 1 mm images after IV contrast, 3D rendering performed by wv on a separate workstation No evidence of aortic dissection or pulmonary embolism. Patchy scattered bilateral lung infiltrates. Minimal left pleural effusion. No lymphadenopathy. IMPRESSION: Patchy scattered bilateral lung infiltrates. Minimal left pleural effusion. Report Dictated on Final Dictating Physician: MD MICHAELS MALAY Signed Date and Time: 03/18/2021 4:35 pm Signed by: MD MICHAELS MALAY Transcribed Date and Time: 03/18/2021 4:36 Normal [facility] CTA HEAD NECK W WO CONTRASTo n 03-18-2021 [id number] Computed Tomography ACCESSION EXAM DATE/TIME PROCEDURE ORDERING PROVIDER [id number] 03/18/2021 16:26 EST CTA Head/Neck w/ + w/o [id number] alyson ARCHIBALD CPT code 94697 35576 Q9967 Reason For Exam (CTA Head/Neck w/ + w/o contrast) AMS, dysphasia and ?aphasia possibly since yesterday- very poor historian from care home w/ unclear prior deficits - here w/ [...] Tomography ACCESSION EXAM DATE/TIME PROCEDURE ORDERING PROVIDER [id number] 03/18/2021 16:26 EST CTA Head/Neck w/ + w/o [id number] -alyson CASTRO CPT code 39002 44292 Q9967 Reason For Exam (CTA Head/Neck w/ + w/o contrast) AMS, dysphasia and ?aphasia possibly since yesterday- very poor historian from care home w/ unclear prior deficits - here w/ [...] Tomography ACCESSION EXAM DATE/TIME PROCEDURE ORDERING PROVIDER [id number] 03/18/2021 16:26 EST CTA Head/Neck w/ + w/o [id number] -alyson CASTRO CPT code 98764 96673 Q9967 Reason For Exam (CTA Head/Neck w/ + w/o contrast) AMS, dysphasia and ?aphasia possibly since yesterday- very poor historian from care home w/ unclear prior deficits - here w/ [...] Transcribed Date and Time: 03/18/2021 4:52 Normal [facility] ED Provider Noteon ED Provider Note [...] patient come from an ECF, SNF, Rehab, Long Term or other Congregate setting: no (If yes to above patient needs a Covid-19 test) HPI Kathya Hooper is a 66 y.o. 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 Normal [facility] Hemogram w/ Autodiffon 03-18 Abs Baso Cnt 0.0 10*3/uL Normal 0.0-0.2 [facility] Comment on above: Performed By: #### H EMDMaurice BMP3 #### [facility] [address] [place] [address] Abs Neutrophile Cnt 7.3 10*3/uL High 1.8-7.0 [facility] Comment on above: Performed By: #### H MAYKEL BMP3 #### [facility] [address] [place] [address] Basophils/100 WBC (Bld) 0.5 % Normal 0.0-2.0 [facility] Comment on above: Performed By: #### H MAYKEL BMP3 #### [facility] [address] [place] [address] Eosinophils (Bld) [#/Vol] 0.0 10*3/uL Normal 0.0-0.5 [facility] Comment on above: Performed By: #### H MAYKEL BMP3 #### [facility] [address] [place] [address] Eosinophils/100 WBC (Bld) 0.1 % Low 1.0-6.0 [facility] Comment on above: Performed By: #### H EMDMaurice BMP3 #### [facility] [address] [place] [address] Erythrocyte distribution width (RBC) [Ratio] 12.9 % Normal 11.5-14.5 [facility] Comment on above: Performed By: #### H EMDF BMP3 #### [facility] [address] [place] [address] Granulocytes/100 WBC (Bld) 82.8 % High 40.0-80.0 [facility] Comment on above: Performed By: #### H EMDMaurice BMP3 #### [facility] [address] [place] [address] Hematocrit (Bld) [Volume fraction] 38.3 % Low 40.0-52.0 [facility] Comment on above: Performed By: #### H MAYKEL, BMP3 #### [facility] [address] [place] [address] Hemoglobin (Bld) [Mass/Vol] 13.6 g/dL Normal 13.0-18.0 [facility] Comment on above: Performed By: #### H MAYKEL BMP3 #### [facility] [address] [place] [address] Lymphocytes (Bld) [#/Vol] 0.7 10*3/uL Low 1.0-4.3 [facility] Comment on above: Performed By: #### H MAYKEL BMP3 #### [facility] [address] [place] [address] Lymphocytes/100 WBC (Bld) 7.6 % Low 20.0-40.0 [facility] Comment on above: Performed By: #### H MAYKEL BMP3 #### [facility] [address] [place] [address] MCH (RBC) [Entitic mass] 32.0 pg Normal 26.0-34.0 [facility] Comment on above: Performed By: #### H MAYKEL BMP3 #### [facility] [address] [place] [address] MCHC 35.4 % Normal 32.0-36.0 [facility] Comment on above: Performed By: #### H EMDMaurice BMP3 #### [facility] [address] [place] [address] MCV (RBC) [Entitic vol] 90.2 fL Normal 80.0-98.0 [facility] Comment on above: Performed By: #### H EMDF, BMP3 #### [facility] [address] [place] [address] Monocytes (Bld) [#/Vol] 0.8 10*3/uL Normal 0.0-0.8 [facility] Comment on above: Performed By: #### H EMDF, BMP3 #### [facility] [address] [place] [address] Monocytes/100 WBC (Bld) 9.0 % Normal 2.0-10.0 [facility] Comment on above: Performed By: #### H MAYKEL BMP3 #### [facility] [address] [place] [address] Platelet mean volume (Bld) [Entitic vol] 9.8 fL Normal 7.4-10.4 [facility] Comment on above: Performed By: #### H EMDMaurice BMP3 #### [facility] [address] [place] [address] Platelets (Bld) [#/Vol] 129 10*3/uL Low 140-440 [facility] Comment on above: Performed By: #### H MAYKEL BMP3 #### [facility] [address] [place] [address] RBC (Bld) [#/Vol] 4.24 10*6/uL Low 4.40-5.90 [facility] Comment on above: Performed By: #### H ALCIRAF BMP3 #### [facility] [address] [place] [address] WBC (Bld) [#/Vol] 8.8 10*3/uL Normal 3.6-10.7 [facility] Comment on above: Performed By: #### H EMDF, BMP3 #### [facility] [address] [place] [address] MAGNESIUMon 03-18-2021 Magnesium [Mass/Vol] 2.0 mg/dL 1.6 - 2 .3 mg/dL [facility] Magnesiumon 03-18-2021 Magnesium [Mass/Vol] 2.0 mg/dL Normal 1.6-2.3 [facility] Comment on above: Performed By: #### H MAYKEL BMP3 #### [facility] [address] [place] [address] NT pro BNPon 03-18-2021 Natriuretic peptide B (Bld) [Mass/Vol] 710 pg/mL High 0-125 [facility] Comment on above: Performed By: #### H MAYKEL BMP3 #### [facility] [address] [place] [address] No Panel Informationon 03-18 Test Performed by [facility], [address], [place], [place] [address] [facility] PROTIME/INR & PTTon 03-18-20 21 aPTT Coag (Bld) [Time] 30.7 s High 20.0 - 30.[address] [facility] Comment on above: NOTE: The therapeuti c time for Heparin anticoagulation, based on Xa activity inhibition, is an APTT of 46-80 seconds. INR Coag (Bld) [Relative time] 1.1 {INR} [facility] Comment on above: Recommended Anticoag ulant [...] review of laboratory results Abnormal [facility] PT Coag (PPP) [Time] 11.4 s 9.0 - 12.0 s [facility] Comment on above: . Test Performed by [facility], [address], [place], [place] [id number] [place] [address] [facility] Protime AND APTTon aPTT Coag (Bld) [Time] 30.7 s High 20.0-30.5 [facility] Comment on above: Result Comment: NOTE : The therapeutic time for Heparin anticoagulation, based on Xa activity inhibition, is an APTT of 46-80 seconds. Performed By: #### H EMDF, BMP3 #### [facility] [address] [place] [address] INR 1.1 Normal 0.9-1.1 [facility] Comment on above: Result Comment: Yefri [...] Performed By: #### H MITALI BRAR #### [facility] [address] [place] [address] PT Coag (PPP) [Time] 11.4 s Normal 9.0-12.0 [facility] Comment on above: Result Comment: . Performed By: #### H KORIN BRAR3 #### [facility] [address] [place] [address] SARS-CoV-2, Flu A/B and RSVo n 03-18-2021 SARS-CoV-2 (COVID-19) RNA SHIRLEY+probe Ql (Unsp spec) SARS-CoV-2 --> Status: F Not Detected. Flu A PCR --> Status: F Not Detected. Flu B PCR --> Status: F Not Detected. RSV PCR --> Status: F DETECTED Expected Result: Not Detected _ Method: Real-time, RT-PCR This assay was developed by [employer] and distributed under an Emergency Use Authorization (EUA) granted by the FDA for the qualitative detection of nucleic acids from SARS-CoV-2, Influenza A, Influenza B, and Respiratory Syncytial Virus. Provider and patient fact sheets can be found at https://www.fda.gov/m edia/915126/download and https://www.fda.gov/m edia/474004/download. Expected Result: Not Detected _ Method: Real-time, RT-PCR This assay was developed by [employer] and distributed under an Emergency Use Authorization (EUA) granted by the FDA for the qualitative detection of nucleic acids from SARS-CoV-2, Influenza A, Influenza B, and Respiratory Syncytial Virus. Provider and patient fact sheets can be found at https://www.fda.gov/m edia/763716/download and https://www.fda.gov/m edia/281875/download. Abnormal [facility] Comment on above: Performed By: #### C VFLR #### [facility] [address] [place] [address] , [address] TS GELon 03-18-2021 TS GEL ABO Group: O Rh, Gel: POS Antibody Screen Gel: NEG Normal [facility] Comment on above: Performed By: #### T SGL #### [facility] TYPE AND SCREENon 03-18-2021 ABO Grouping O [facility] Rh Type Positive [facility] Test Performed by [facility], [address] [place], [place], [place] [address] [facility] X[facility] CHEST PORTABLEon 03-18-20 Patient Name: KATHYA HOOPER Diagnostic Radiology ACCESSION EXAM DATE/TIME PROCEDURE ORDERING PROVIDER [id number] 03/18/2021 15:30 EST CR Chest Portable [id number] [place] [address] CPT code 00550 Reason For Exam (CR Chest Portable) sob, [...] KRIKOR Transcribed Date and Time: 03/18/2021 3:35 [facility] Alejandra Munoz MD - 03/18/2021 Patient Name: KATHYA HOOPER Diagnostic Radiology ACCESSION EXAM DATE/TIME PROCEDURE ORDERING PROVIDER [id number] 03/18/2021 15:30 EST CR Chest Portable [id number] [place] [address] CPT code 04888 Reason For Exam (CR Chest Portable) sob, [...] was seen and treated independently by the middle school professional. I was present and available in the emergency department when this patient was treated. Vero Montejo MD [facility] ED eMERGENCY dEPARTMENT eNCOUnter Pt Name: Kathya [...] Date ? TREVER (acute kidney injury) ([facility]LY [facility]) ? Alcohol abuse 07/08/2018 ? Anxiety ? Depression ? Fall 06/2018 ? Schizophrenia (FORMERLY [facility]) SURGICALHISTORY Past Surgical History: Procedure Laterality [...] Strain: ? (more content not included)... Normal [facility] [place] GI TUBE EVALUATION W CONT RASTOrdered By: Helen Toledo on 10-30-2020 Patient Name: KATHYA HOOPER Fluoroscopy ACCESSION EXAM DATE/TIME PROCEDURE ORDERING PROVIDER [id number] 10/30/2020 15:07 EDT RF Intro Long GI Tube w/ KRISTA TOLEDO HELEN Alban Fluoro CPT code 56625 Reason For Exam (RF Intro Long GI [...] Time: 10/30/2020 4:06 [facility] Work Phone: [facility], [facility] Results From [facility] - 10/30/2020 4:07 PM EDT Patient Name: KATHYA HOOPER Fluoroscopy ACCESSION EXAM DATE/TIME PROCEDURE ORDERING PROVIDER [id number] 10/30/2020 15:07 EDT RF Intro Long GI Tube w/ KRISTA TOLEDO AMY L Fluoro CPT code 50152 Reason For Exam (RF Intro Long GI [...] J Transcribed Date and Time: 10/30/2020 4:06 [facility] Work Phone: [facility] Work Phone: RF Intro Long GI Tube w/ Flu oroon 10-30-2020 RF Intro Long GI Tube w/ Fluoro [facility]: [id number] Fluoroscopy ACCESSION EXAM DATE/TIME PROCEDURE ORDERING PROVIDER [id number] 10/30/2020 15:07 EDT RF Intro Long GI Tube w/ KRISTA TOLEDO AMY L Fluoro CPT code 03802 Reason For Exam (RF Intro Long GI [...] Transcribed Date and Time: 10/30/2020 4:06 Normal [facility] ED Provider Noteon ED Provider Note [...] Gatherings with Friends and Family: ? Attends Scientology Services: ? Active Member of Clubs or [...] Soft, non-distended (more content not included)... Normal [facility] [place] GI TUBE EVALUATION W CONT RASTOrdered By: Elizabeth Moura on 09-22-2020 Patient Name: KATHYA HOOPER Fluoroscopy ACCESSION EXAM DATE/TIME PROCEDURE ORDERING PROVIDER [id number] 09/22/2020 04:09 EDT RF Intro Long GI Tube w/ 5816 -ELIZABETH MOURA CPT code 14647 Reason For Exam (RF Intro Long GI [...] Date and Time: 09/22/2020 5:[address] [facility] Work Phone: Ja[facility], [facility] Incoming Radiology Results From [facility] - 09/22/2020 5:11 AM EDT Patient Name: KATHYA HOOPER Fluoroscopy ACCESSION EXAM DATE/TIME PROCEDURE ORDERING PROVIDER [id number] 09/22/2020 04:09 EDT RF Intro Long GI Tube w/ 58Hayley ELISABETH ELIZABETH Fluoro CPT code 12136 Reason For Exam (RF Intro Long GI [...] JEFFREY Transcribed Date and Time: 09/22/2020 5:11 [facility] Work Phone: [facility] Work Phone: RF Intro Long GI Tube w/ Flu oroon 09-22-2020 RF Intro Long GI Tube w/ Fluoro Patient Name: KATHYA HOOPER Fluoroscopy ACCESSION EXAM DATE/TIME PROCEDURE ORDERING PROVIDER [id number] 09/22/2020 04:09 EDT RF Intro Long GI Tube w/ Dylon CHRISTENSENANDA ELIZABETH Fluoro CPT code 57808 Reason For Exam (RF Intro Long GI [...] Transcribed Date and Time: 09/22/2020 5:11 Normal [facility] ED Provider Noteon ED Provider Note [...] otherwise acutely negative except as in the [place]. PAST MEDICAL HISTORY Past Medical History: Diagnosis [...] (AQUAPHOR) ointment Apply topically as needed. Balsam [employer] (VENELEX) OINT ointment Apply topically every [...] file Gets together: Not on file Attends amish service: Not on file Active member of [...] for level (more content not included)... Normal [facility] GI TUBE EVALUATION W BRANDON Warner 06-26-2020 [facility]: [id number] Fluoroscopy ACCESSION EXAM DATE/TIME PROCEDURE ORDERING PROVIDER [id number] 06/26/2020 20:20 EST RF Intro Long GI Tube w/ [id number] -ABELARDO RIOS CPT code 58007 Reason For Exam (RF Intro Long GI [...] Phone: [facility], [facility] 06/26/2020 9:16 PM EST Patient Name: KATHYA HOOPER Fluoroscopy ACCESSION EXAM DATE/TIME PROCEDURE ORDERING PROVIDER [id number] 06/26/2020 20:20 EST RF Intro Long GI Tube w/ [id number] -ABELARDO RIOS CPT code 03468 Reason For Exam (RF Intro Long GI [...] Tolerated well, no immediate complications [facility] Work Phone: RF Intro Long GI Tube w/ Flu oroon 06-26-2020 RF Intro Long GI Tube w/ Fluoro Patient Name: KATHYA HOOPER Fluoroscopy ACCESSION EXAM DATE/TIME PROCEDURE ORDERING PROVIDER [id number] 06/26/2020 20:20 EST RF Intro Long GI Tube w/ [id number] -ABELARDO RIOS CPT code 43300 Reason For Exam (RF Intro Long GI [...] Transcribed Date and Time: 06/26/2020 9:16 Normal [facility] Clinical Summary: HMSPatient IDon 05-22-2019 WOP [facility] Work Phone: Office Visit: New - 1st visi t with practice, Rm: 2on 05-22-2019 NEGATED: Highlighted rowCT scan history of the right lower extremity on 05/16/2019 at [facility] Work Phone: NEGATED: Highlighted rowTobacco smoking status NHIS current someday smoker [facility] Work Phone: NEGATED: Highlighted rowxray history of the pelvis with hip on 05/11/2019 at [facility] , of the pelvis on 05/13/2019 at [facility] Work Phone: CT LOWER EXTREMITY RIGHT WO CONTRASTOrdered By: Elizabeth Moura on 05-16-2019 Patient Name: KATHYA HOOPER ---CT--- Exam Date/Time 05/16/2019 21:10:[address] Low Ext w/o Contrast Right Ordering Physician ELIZABETH BARKER Accession Number [id number] CPT4 Codes 81350 () Reason For Exam right hip pain, [...] Phone: Jaquan, Junaida Incoming Radiology Results From [facility] - 05/16/2019 9:24 PM EST Patient Name: KATHYA HOOPER ---CT--- Exam Date/Time 05/16/2019 21:10:[address] Low Ext w/o Contrast Right Ordering Physician Dylon PinkELIZABETH MOURA Accession Number [id number] CPT4 Codes 65420 () Reason For Exam right hip pain, [...] Date and Time: 05/16/2019 9:[address] [facility] Work Phone: Differential,Body Fluidson 0 09-27-2018 Other Cells 46 % Normal [facility] Comment on above: Result Comment: Bloo dy specimen with reactive mesothelial cells and chronic inflammation with occasional hemophagocytosis. 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 [address] CULTURE AND STAIN - FLUIDon 09-25-2018 CULTURE AND STAIN - FLUID CULTURE & STAIN - FLUID --> Status: F No growth at 5 days. STAIN GRAM --> Status: F Moderate polymorphonuclear cells/lpf. Moderate mononuclear cells/lpf No organisms seen. Cytocentrifugation performed. Moderate mononuclear cells/lpf No organisms seen. Cytocentrifugation performed. Normal [facility] Comment on above: Performed By: #### H EMDF, PT, BMP3M, PHOS3, MG3, CK3 #### [facility] [address] [place] [address] #### VD25H #### [facility] [address] [place] [address] Cell Count,Body Fluidon 05-2 Nucleated Cells 2391 {cells}/uL Normal [facility] Comment on above: Performed By: #### H EMDF, PT, BMP3M, PHOS3, MG3, CK3 #### [place] [address] [address] [place], [place] #### VD25H #### [facility] [address] [place] [address] [place] [address] {RBC}/uL Normal [facility] Comment on above: Performed By: #### H EMDF, PT, BMP3M, PHOS3, MG3, CK3 #### [place] [address] [address] [place], [place] #### VD25H #### [place] [address] [place] [address] Fluid Type Thoracentesis Normal [facility] Comment on above: Performed By: #### H EMDF, PT, BMP3M, PHOS3, MG3, CK3 #### [place] [address] [place], [place] #### VD25H #### [facility] [address] [place] [address] Differential,Body Fluidson 0 09-25-2018 Lymphocytes/100 WBC (Bld) 28 % Normal [facility] Comment on above: Performed By: #### H EMDF, PT, BMP3M, PHOS3, MG3, CK3 #### [place] [address] [address] [place], [place] #### VD25H #### [facility] [address] [place] [address] Monocytes/100 WBC (Bld) 1 % Normal [facility] Comment on above: Performed By: #### H EMDF, PT, BMP3M, PHOS3, MG3, CK3 #### [place] [address] [place], [place] #### VD25H #### [place] [address] [place] [address] Neutrophils/100 WBC (Bld) 25 % Normal [facility] Comment on above: Performed By: #### H EMDF, PT, BMP3M, PHOS3, MG3, CK3 #### [place] [address] [place] [place], [place] #### VD25H #### [facility] [address] [place] [address] Cells Counted for Diff 100 Normal [facility] Comment on above: Performed By: #### H EMDF, PT, BMP3M, PHOS3, MG3, CK3 #### [place] [address] [place] [place], [place] #### VD25H #### [facility] [address] [place] [address] LDH, Body Fluidon 09-25-2018 LDH, Body Fluid 174 U/L Normal No Range [facility] Comment on above: Performed By: #### H EMDF, PT, BMP3M, PHOS3, MG3, CK3 #### [place] [address] [place] [place], [place] #### VD25H #### [facility] [address] [place] [address] Protein, Total Body Fluidon 09-25-2018 Protein,Total-Body Fld 3.4 g/dL Normal No Range [facility] Comment on above: Performed By: #### H EMDF, PT, BMP3M, PHOS3, MG3, CK3 #### [place] [address] [place] [place], [place] #### VD25H #### [facility] [address] [place] [address] US Thora-Aspir Pleura w/ Evelin geon 09-25-2018 US Thora-Aspir Pleura w/ Image Patient Name: KATHYA HOOPER Ultrasound Exam Date/Time 09/25/2018 13:23:41 EDT Exam US Thora-Aspir Pleura w/ Image Ordering Physician SALO DAVIS Accession Number [id number] CPT4 Codes 98348 () Reason For Exam pleural effusion Report [...] lab for analysis. Report Dictated on Workstation: [employer] Final Dictated: 09/25/2018 3:07 pm Dictating Physician: KRISTA DE LA VEGA JENNIFER Signed Date and Time: 09/25/2018 3:08 pm Signed by: KRISTA DE LA VEGA JENNIFER Transcribed Date and Time: 09/25/2018 3:07 [facility] CULTURE MYCOBACTERIAon 09-03 CULTURE MYCOBACTERIA CULTURE MYCOBACTERI A --> Status: F No acid-fast bacilli isolated after 6 weeks incubation. [facility] Comment on above: Performed By: #### H EMDF, PT, BMP3M, PHOS3, MG3, CK3 #### [facility] [address] [place] [address] #### VD25H #### [facility] [address] [place] [address] CULTURE URINEon 08-23-2018 CULTURE URINE CULTURE URINE --> Status: F No growth (<1,000 CFU/ml). [facility] Comment on above: Order Comment: Speci men Source Comment:Urine, clean catch Performed By: #### H EMDF, PT, BMP3M, PHOS3, MG3, CK3 #### [facility] [address] [place] [address] #### VD25H #### [facility] [address] [place] [address] CR Chest Portableon 08-23-19 19 CR Chest Portable Patient Name: KATHYA HOOPER Diagnostic Radiology Exam Date/Time 08/22/2018 07:07:07 EDT Exam CR Chest Portable Ordering Physician HIRAM ONEIL Accession Number [id number] CPT4 Codes 99715 () Reason For Exam dyspnea Report Portable [...] Transcribed Date and Time: 08/22/2018 7:31 Normal [facility] Glucose,Bedsideon 08-22-2018 Glucose mass conc 127 mg/dL High 70-100 [facility] Comment on above: Result Comment: Test performed by glucose meter. Results may be 10%-15% lower than serum/plasma values. (CLIA ID [id number]) Performed By: #### H EMDF, PT, BMP3M, PHOS3, MG3, CK3 #### [facility] [address] [place] [address] #### VD25H #### [facility] [address] [place] [address] Urinalysis,Macroon 9 Appearance Nom (U) clear Normal Clear [facility] Comment on above: Performed By: #### H EMDF, PT, BMP3M, PHOS3, MG3, CK3 #### [address] [place], [place] #### VD25H #### [facility] [address] [place] [address] Bilirubin,Ur Negative Normal Negative [facility] Comment on above: Performed By: #### H EMDF, PT, BMP3M, PHOS3, MG3, CK3 #### [address] #### VD25H #### [facility] [address] [place] [address] Color Nom (U) dk.yel Normal Lt. Yellow [facility] Comment on above: Performed By: #### H EMDF, PT, BMP3M, PHOS3, MG3, CK3 #### [address] #### VD25H #### [facility] [address] [place] [address] Glucose Ql (U) NORM Normal Negative [facility] Comment on above: Performed By: #### H EMDF, PT, BMP3M, PHOS3, MG3, CK3 #### [address] #### VD25H #### [facility] [address] [place] [address] Ketone,Urine Negative Normal Negative [facility] Comment on above: Performed By: #### H EMDF, PT, BMP3M, PHOS3, MG3, CK3 #### [address] #### VD25H #### [facility] [address] [place] [address] Nitrite Ql (U) Negative Normal Negative [facility] Comment on above: Performed By: #### H EMDF, PT, BMP3M, PHOS3, MG3, CK3 #### [place] [address] [address] [place] #### VD25H #### [facility] [address] [place] [address] Occult Blood,Ur Negative Normal Negative [facility] Comment on above: Performed By: #### H EMDF, PT, BMP3M, PHOS3, MG3, CK3 #### [place] [address] [place] [place], [place] #### VD25H #### [facility] [address] [place] [address] pH (U) 8.0 Normal 5.0-8.0 [facility] Comment on above: Performed By: #### H EMDF, PT, BMP3M, PHOS3, MG3, CK3 #### [address] #### VD25H #### [place] [address] [place] [address] Protein mass conc (U) Negative Normal Negative [facility] Comment on above: Performed By: #### H EMDF, PT, BMP3M, PHOS3, MG3, CK3 #### [address] #### VD25H #### [place] [address] [place] [address] Specific Wilson,Urine 1.015 Normal 1.005-1.030 [facility] Comment on above: Performed By: #### H EMDF, PT, BMP3M, PHOS3, MG3, CK3 #### [address] #### VD25H #### [place] [address] [place] [address] Urobilinogen Qn (U) 1 mg/dL Normal 0-1 [facility] Comment on above: Performed By: #### H EMDF, PT, BMP3M, PHOS3, MG3, CK3 #### [address] #### VD25H #### [facility] [address] [place] [address] WBC #/vol (Bld) Negative Normal Negative [facility] Comment on above: Performed By: #### H EMDF, PT, BMP3M, PHOS3, MG3, CK3 #### [place] [address] [address] [place], [place] #### VD25H #### [facility] [address] [place] [address] Basic Metabolic Panelon 04-2 Calcium mass conc 7.8 mg/dL Low 8.4-10.4 [facility] Comment on above: Performed By: #### H EMDF, PT, BMP3M, PHOS3, MG3, CK3 #### [address] #### VD25H #### [facility] [address] [place] [address] Glucose mass conc 102 mg/dL High 70-100 [facility] Comment on above: Performed By: #### H EMDF, PT, BMP3M, PHOS3, MG3, CK3 #### [place] [address] [place] [place] #### VD25H #### [facility] [address] [place] [address] Anion gap molar conc 0 Normal [facility] Comment on above: Performed By: #### H EMDF, PT, BMP3M, PHOS3, MG3, CK3 #### [place] [address] [address] [place] #### VD25H #### [facility] [address] [place] [address] CO2 molar conc 37 mmol/L High 22-30 [facility] Comment on above: Performed By: #### H EMDF, PT, BMP3M, PHOS3, MG3, CK3 #### [place] [address] [place] [place] #### VD25H #### [facility] [address] [place] [address] Creatinine mass conc 0.46 mg/dL Low 0.52-1.25 [facility] Comment on above: Performed By: #### H EMDF, PT, BMP3M, PHOS3, MG3, CK3 #### [address] #### VD25H #### [facility] [address] [place] [address] GFR/1.73 sq M predicted among blacks MDRD vol rate/area (S/P/Bld) mL/min/{1.73_m2} Normal >60 [facility] Comment on above: Performed By: #### H EMDF, PT, BMP3M, PHOS3, MG3, CK3 #### [address] #### VD25H #### [place] [address] [place] [address] GFR/1.73 sq M predicted among non-blacks MDRD vol rate/area (S/P/Bld) mL/min/{1.73_m2} Normal >60 [facility] Comment on above: Result Comment: Sour ce- MDRD equation with creatinine calibration to IDMS(NKDEP) eGFR not recommended for drug dose adjustment Performed By: #### H EMDF, PT, BMP3M, PHOS3, MG3, CK3 #### [address] #### VD25H #### [facility] [address] [place] [address] Urea nitrogen mass conc 7 mg/dL Normal 7-20 [facility] Comment on above: Performed By: #### H EMDF, PT, BMP3M, PHOS3, MG3, CK3 #### [address] #### VD25H #### [place] [address] [place] [address] Potassium molar conc 3.7 mmol/L Normal 3.5-5.1 [facility] Comment on above: Performed By: #### H EMDF, PT, BMP3M, PHOS3, MG3, CK3 #### [facility] [address] [place] [address] #### VD25H #### [facility] [address] [place] [place] [address] Chloride molar conc 101 mmol/L Normal 98-107 [facility] Comment on above: Performed By: #### H EMDF, PT, BMP3M, PHOS3, MG3, CK3 #### [facility] [address] [place], [place] #### VD25H #### [facility] [address] [place] [address] Sodium molar conc 138 mmol/L Normal 135-145 [facility] Comment on above: Performed By: #### H EMDF, PT, BMP3M, PHOS3, MG3, CK3 #### [facility] [address] [place], [place] #### VD25H #### [facility] [address] [place] [address] CR Chest Portableon 08-22-19 CR Chest Portable Patient Name: KATYHA HOOPER Diagnostic Radiology Exam Date/Time 08/21/2018 09:46:47 EDT Exam CR Chest Portable Ordering Physician MALLORY STAPLES Accession Number [id number] CPT4 Codes 75322 () Reason For Exam edema Report PORTABLE [...] Transcribed Date and Time: 08/21/2018 11:14 Normal [facility] CULTURE ANAEROBEon 9 CULTURE ANAEROBE CULTURE ANAEROBE --> Status: F No growth of anaerobes at 5 days. Normal [facility] Comment on above: Order Comment: or co llected Performed By: #### H EMDF, PT, BMP3M, PHOS3, MG3, CK3 #### [facility] [address] #### VD25H #### [employer] [facility] [address] [place] [address] Glucose,Bedsideon 08-21-2018 Glucose mass conc 124 mg/dL High 70-100 [facility] Comment on above: Result Comment: Test performed by glucose meter. Results may be 10%-15% lower than serum/plasma values. (CLIA ID [id number]) Performed By: #### H EMDF, PT, BMP3M, PHOS3, MG3, CK3 #### [employer] [address] [place], [place] #### VD25H #### [employer] [facility] [address] [place] [address] Glucose mass conc 135 mg/dL High 70-100 [facility] Comment on above: Result Comment: Test performed by glucose meter. Results may be 10%-15% lower than serum/plasma values. (CLIA ID [id number]) Performed By: #### H EMDF, PT, BMP3M, PHOS3, MG3, CK3 #### [facility] [address] [place] [address] #### VD25H #### [employer] [facility] [address] [place] [address] Glucose mass conc 131 mg/dL High 70-100 [facility] Comment on above: Result Comment: Test performed by glucose meter. Results may be 10%-15% lower than serum/plasma values. (CLIA ID [id number]) Performed By: #### H EMDF, PT, BMP3M, PHOS3, MG3, CK3 #### [place] [address] [address] [place], [place] #### VD25H #### [facility] [address] [place] [place] [address] Glucose mass conc 112 mg/dL High 70-100 [facility] Comment on above: Result Comment: Test performed by glucose meter. Results may be 10%-15% lower than serum/plasma values. (CLIA ID [id number]) Performed By: #### H EMDF, PT, BMP3M, PHOS3, MG3, CK3 #### [place] [address] [place], [place] #### VD25H #### [facility] [address] [place] [place] [address] Basic Metabolic Panelon 07-31 Anion gap molar conc 4 Normal [facility] Comment on above: Performed By: #### H EMDF, PT, BMP3M, PHOS3, MG3, CK3 #### [place] [address] [place], [place] #### VD25H #### [facility] [address] [place] [place] [address] Calcium mass conc 7.6 mg/dL Low 8.4-10.4 [facility] Comment on above: Performed By: #### H EMDF, PT, BMP3M, PHOS3, MG3, CK3 #### [address] [place], [place] #### VD25H #### [facility] [address] [place] [place] [address] CO2 molar conc 36 mmol/L High 22-30 [facility] Comment on above: Performed By: #### H EMDF, PT, BMP3M, PHOS3, MG3, CK3 #### [place] [address] [address] [place], [place] #### VD25H #### [facility] [address] [place] [address] Glucose mass conc 121 mg/dL High 70-100 [facility] Comment on above: Performed By: #### H EMDF, PT, BMP3M, PHOS3, MG3, CK3 #### [place] [address] [place], [place] #### VD25H #### [facility] [address] [place] [address] Urea nitrogen mass conc 9 mg/dL Normal 7-20 [facility] Comment on above: Performed By: #### H EMDF, PT, BMP3M, PHOS3, MG3, CK3 #### [address] #### VD25H #### [facility] [address] [place] [address] Creatinine mass conc 0.51 mg/dL Low 0.52-1.25 [facility] Comment on above: Performed By: #### H EMDF, PT, BMP3M, PHOS3, MG3, CK3 #### [address] #### VD25H #### [facility] [address] [place] [address] GFR/1.73 sq M predicted among blacks MDRD vol rate/area (S/P/Bld) mL/min/{1.73_m2} Normal >60 [facility] Comment on above: Performed By: #### H EMDF, PT, BMP3M, PHOS3, MG3, CK3 #### [address] #### VD25H #### [facility] [address] [place] [address] GFR/1.73 sq M predicted among non-blacks MDRD vol rate/area (S/P/Bld) mL/min/{1.73_m2} Normal >60 [facility] Comment on above: Result Comment: Sour ce- MDRD equation with creatinine calibration to IDMS(NKDEP) eGFR not recommended for drug dose adjustment Performed By: #### H EMDF, PT, BMP3M, PHOS3, MG3, CK3 #### [facility] [address] [place], [place] #### VD25H #### [facility] [address] [place] [address] Chloride molar conc 100 mmol/L Normal 98-107 [facility] Comment on above: Performed By: #### H EMDF, PT, BMP3M, PHOS3, MG3, CK3 #### [place] [address] [place], [place] #### VD25H #### [facility] [address] [place] [address] Potassium molar conc 3.3 mmol/L Low 3.5-5.1 [facility] Comment on above: Performed By: #### H EMDF, PT, BMP3M, PHOS3, MG3, CK3 #### [place] [address] [place], [place] #### VD25H #### [facility] [address] [place] [address] Sodium molar conc 140 mmol/L Normal 135-145 [facility] Comment on above: Performed By: #### H EMDF, PT, BMP3M, PHOS3, MG3, CK3 #### [place] [address] [place], [place] #### VD25H #### [facility] [address] [place] [address] Glucose,Bedsideon 08-20-2018 Glucose mass conc 121 mg/dL High 70-100 [facility] Comment on above: Result Comment: Test performed by glucose meter. Results may be 10%-15% lower than serum/plasma values. (CLIA ID [id number]) Performed By: #### H EMDF, PT, BMP3M, PHOS3, MG3, CK3 #### [facility] [address] [place], [place] #### VD25H #### [facility] [address] [place] [address] Glucose mass conc 127 mg/dL High 70-100 [facility] Comment on above: Result Comment: Test performed by glucose meter. Results may be 10%-15% lower than serum/plasma values. (CLIA ID [id number]) Performed By: #### H EMDF, PT, BMP3M, PHOS3, MG3, CK3 #### [place] [address] [place], [place] #### VD25H #### [facility] [address] [place] [address] Hep A Abs, Totalon 9 Hep A Abs, Total Negative Normal Negative [facility] Comment on above: Result Comment: Perf ormed by Nat[employer], [address] [place] [id number] [email or web address] Moo [place] MD - Lab. Director Performed By: #### H EMDF, PT, BMP3M, PHOS3, MG3, CK3 #### [address] #### VD25H #### [facility] [address] [place] [address] Basic Metabolic Panelon 04-2 Anion gap molar conc 1 Normal [facility] Comment on above: Performed By: #### H EMDF, PT, BMP3M, PHOS3, MG3, CK3 #### [address] #### VD25H #### [facility] [address] [place] [address] Calcium mass conc 7.6 mg/dL Low 8.4-10.4 [facility] Comment on above: Performed By: #### H EMDF, PT, BMP3M, PHOS3, MG3, CK3 #### [place] [address] [place], [place] #### VD25H #### [facility] [address] [place] [address] CO2 molar conc 33 mmol/L High 22-30 [facility] Comment on above: Performed By: #### H EMDF, PT, BMP3M, PHOS3, MG3, CK3 #### [address] #### VD25H #### [facility] [address] [place] [address] Glucose mass conc 139 mg/dL High 70-100 [facility] Comment on above: Performed By: #### H EMDF, PT, BMP3M, PHOS3, MG3, CK3 #### [address] #### VD25H #### [place] [address] [place] [address] Urea nitrogen mass conc 10 mg/dL Normal 7-20 [facility] Comment on above: Performed By: #### H EMDF, PT, BMP3M, PHOS3, MG3, CK3 #### [address] #### VD25H #### [facility] [address] [place] [address] Creatinine mass conc 0.57 mg/dL Normal 0.52-1.25 [facility] Comment on above: Performed By: #### H EMDF, PT, BMP3M, PHOS3, MG3, CK3 #### [address] #### VD25H #### [facility] [address] [place] [address] GFR/1.73 sq M predicted among blacks MDRD vol rate/area (S/P/Bld) mL/min/{1.73_m2} Normal >60 [facility] Comment on above: Performed By: #### H EMDF, PT, BMP3M, PHOS3, MG3, CK3 #### [address] #### VD25H #### [facility] [address] [place] [address] GFR/1.73 sq M predicted among non-blacks MDRD vol rate/area (S/P/Bld) mL/min/{1.73_m2} Normal >60 [facility] Comment on above: Result Comment: Sour ce- MDRD equation with creatinine calibration to IDMS(NKDEP) eGFR not recommended for drug dose adjustment Performed By: #### H EMDF, PT, BMP3M, PHOS3, MG3, CK3 #### [facility] [address] [place], [place] #### VD25H #### [facility] [address] [place] [address] Potassium molar conc 3.4 mmol/L Low 3.5-5.1 [facility] Comment on above: Performed By: #### H EMDF, PT, BMP3M, PHOS3, MG3, CK3 #### [facility] [address] [place], [place] #### VD25H #### [facility] [address] [place] [address] Chloride molar conc 104 mmol/L Normal 98-107 [facility] Comment on above: Performed By: #### H EMDF, PT, BMP3M, PHOS3, MG3, CK3 #### [facility] [address] [place], [place] #### VD25H #### [facility] [address] [place] [address] Sodium molar conc 138 mmol/L Normal 135-145 [facility] Comment on above: Performed By: #### H EMDF, PT, BMP3M, PHOS3, MG3, CK3 #### [facility] [address] [place], [place] #### VD25H #### [facility] [address] [place] [address] CULT./ST. BACTERIAon 019 CULT./ST. BACTERIA STAIN GRAM [...] 0.12 S Vancomycin(CHRISTI) = 1 S Normal [facility] Comment on above: Order Comment: or co llected Performed By: #### H EMDF, PT, BMP3M, PHOS3, MG3, CK3 #### [address], [place] #### VD25H #### [facility] [address] [place] [address] Basic Metabolic Panelon 07-31 Calcium mass conc 7.8 mg/dL Low 8.4-10.4 [facility] Comment on above: Performed By: #### H EMDF, PT, BMP3M, PHOS3, MG3, CK3 #### [place] [address] [address] [facility], [place] #### VD25H #### [facility] [address] [place] [address] Glucose mass conc 104 mg/dL High 70-100 [facility] Comment on above: Performed By: #### H EMDF, PT, BMP3M, PHOS3, MG3, CK3 #### [address], [place] #### VD25H #### [facility] [address] [place] [address] Urea nitrogen mass conc 12 mg/dL Normal 7-20 [facility] Comment on above: Performed By: #### H EMDF, PT, BMP3M, PHOS3, MG3, CK3 #### [address], [place] #### VD25H #### [facility] [address] [place] [address] Anion gap molar conc 5 Normal [facility] Comment on above: Performed By: #### H EMDF, PT, BMP3M, PHOS3, MG3, CK3 #### [address], [place] #### VD25H #### [facility] [address] [place] [address] CO2 molar conc 26 mmol/L Normal 22-30 [facility] Comment on above: Performed By: #### H EMDF, PT, BMP3M, PHOS3, MG3, CK3 #### [address] #### VD25H #### [facility] [address] [place] [address] Creatinine mass conc 0.61 mg/dL Normal 0.52-1.25 [facility] Comment on above: Performed By: #### H EMDF, PT, BMP3M, PHOS3, MG3, CK3 #### [address] #### VD25H #### [facility] [address] [place] [address] GFR/1.73 sq M predicted among blacks MDRD vol rate/area (S/P/Bld) mL/min/{1.73_m2} Normal >60 [facility] Comment on above: Performed By: #### H EMDF, PT, BMP3M, PHOS3, MG3, CK3 #### [address] #### VD25H #### [place] [address] [place] [address] GFR/1.73 sq M predicted among non-blacks MDRD vol rate/area (S/P/Bld) mL/min/{1.73_m2} Normal >60 [facility] Comment on above: Result Comment: Sour ce- MDRD equation with creatinine calibration to IDMS(NKDEP) eGFR not recommended for drug dose adjustment Performed By: #### H EMDF, PT, BMP3M, PHOS3, MG3, CK3 #### [address] #### VD25H #### [facility] [address] [place] [address] Chloride molar conc 107 mmol/L Normal 98-107 [facility] Comment on above: Performed By: #### H EMDF, PT, BMP3M, PHOS3, MG3, CK3 #### [address] #### VD25H #### [place] [address] [place] [address] Potassium molar conc 3.4 mmol/L Low 3.5-5.1 [facility] Comment on above: Performed By: #### H EMDF, PT, BMP3M, PHOS3, MG3, CK3 #### [facility] [address] [place], [place] #### VD25H #### [facility] [address] [place] [address] Sodium molar conc 138 mmol/L Normal 135-145 [facility] Comment on above: Performed By: #### H EMDF, PT, BMP3M, PHOS3, MG3, CK3 #### [address] #### VD25H #### [facility] [address] [place] [address] Glucose,Bedsideon 08-18-2018 Glucose mass conc 113 mg/dL High 70-100 [facility] Comment on above: Result Comment: Test performed by glucose meter. Results may be 10%-15% lower than serum/plasma values. (CLIA ID [id number]) Performed By: #### H EMDF, PT, BMP3M, PHOS3, MG3, CK3 #### [address] #### VD25H #### [facility] [address] [place] [address] Hemogram w/ Autodiffon 08-18 Erythrocyte distribution width Ratio (RBC) 14.4 % Normal 11.5-14.5 [facility] Comment on above: Performed By: #### H EMDF, PT, BMP3M, PHOS3, MG3, CK3 #### [address] #### VD25H #### [facility] [address] [place] [address] Hematocrit Volume Fraction (Bld) 29.3 % Low 40.0-52.0 [facility] Comment on above: Performed By: #### H EMDF, PT, BMP3M, PHOS3, MG3, CK3 #### [address] #### VD25H #### [facility] [address] [place] [address] Hemoglobin mass conc (Bld) 9.8 g/dL Low 13.0-18.0 [facility] Comment on above: Performed By: #### H EMDF, PT, BMP3M, PHOS3, MG3, CK3 #### [address] [place], [place] #### VD25H #### [facility] [address] [facility] [place] [address] MCH Entitic mass (RBC) 28.0 pg Normal 26.0-34.0 [facility] Comment on above: Performed By: #### H EMDF, PT, BMP3M, PHOS3, MG3, CK3 #### [address] #### VD25H #### [facility] [address] [place] [place] [address] MCHC mass conc (RBC) 33.4 % Normal 32.0-36.0 [facility] Comment on above: Performed By: #### H EMDF, PT, BMP3M, PHOS3, MG3, CK3 #### [address] #### VD25H #### [facility] [address] [facility] [place] [address] MCV Entitic volume (RBC) 84.1 fL Normal 80.0-98.0 [facility] Comment on above: Performed By: #### H EMDF, PT, BMP3M, PHOS3, MG3, CK3 #### [address] #### VD25H #### [facility] [address] [facility] [place] [address] Platelet mean volume Entitic volume (Bld) 7.9 fL Normal 7.4-10.4 [facility] Comment on above: Performed By: #### H EMDF, PT, BMP3M, PHOS3, MG3, CK3 #### [address] #### VD25H #### [facility] [address] [place] [address] Platelets #/vol (Bld) 301 10*3/uL Normal 140-440 [facility] Comment on above: Performed By: #### H EMDF, PT, BMP3M, PHOS3, MG3, CK3 #### [address] #### VD25H #### [place] [address] [place] [address] RBC #/vol (Bld) 3.49 10*6/uL Low 4.40-5.90 [facility] Comment on above: Performed By: #### H EMDF, PT, BMP3M, PHOS3, MG3, CK3 #### [address] #### VD25H #### [place] [address] [place] [address] WBC #/vol (Bld) 8.3 10*3/uL Normal 3.6-10.7 [facility] Comment on above: Performed By: #### H EMDF, PT, BMP3M, PHOS3, MG3, CK3 #### [address] #### VD25H #### [facility] [address] [place] [address] Magnesiumon 08-18-2018 Magnesium mass conc 2.0 mg/dL Normal 1.6-2.3 [facility] Comment on above: Performed By: #### H EMDF, PT, BMP3M, PHOS3, MG3, CK3 #### [address] #### VD25H #### [place] [address] [place] [address] Manual Diffon 08-18-2018 Abs Neutrophile Cnt 5.1 10*3/uL Normal 2.2-8.2 [facility] Comment on above: Performed By: #### H EMDF, PT, BMP3M, PHOS3, MG3, CK3 #### [facility] [address] [place], [place] #### VD25H #### [facility] [address] [place] [address] Bands 3 % Normal 0-3 [facility] Comment on above: Performed By: #### H EMDF, PT, BMP3M, PHOS3, MG3, CK3 #### [place] [address] [place], [place] #### VD25H #### [facility] [address] [place] [address] Eosinophils #/vol (Bld) 0.2 10*3/uL Normal 0.0-0.5 [facility] Comment on above: Performed By: #### H EMDF, PT, BMP3M, PHOS3, MG3, CK3 #### [place] [address] [place], [place] #### VD25H #### [facility] [address] [place] [address] Eosinophils/100 WBC (Bld) 2 % Normal 1-6 [facility] Comment on above: Performed By: #### H EMDF, PT, BMP3M, PHOS3, MG3, CK3 #### [facility] [address] [place], [place] #### VD25H #### [facility] [address] [place] [address] Lymphocytes #/vol (Bld) 2.1 10*3/uL Normal 1.1-4.5 [facility] Comment on above: Performed By: #### H EMDF, PT, BMP3M, PHOS3, MG3, CK3 #### [facility] [address] [place], [place] #### VD25H #### [facility] [address] [place] [address] Lymphocytes/100 WBC (Bld) 25 % Normal 20-40 [facility] Comment on above: Performed By: #### H EMDF, PT, BMP3M, PHOS3, MG3, CK3 #### [place] [address] [place], [place] #### VD25H #### [facility] [address] [place] [address] Metamyelocytes 1 % Abnormal <1 [facility] Comment on above: Performed By: #### H EMDF, PT, BMP3M, PHOS3, MG3, CK3 #### [address] #### VD25H #### [facility] [address] [place] [address] Monocytes #/vol (Bld) 0.6 10*3/uL Normal 0.2-1.1 [facility] Comment on above: Performed By: #### H EMDF, PT, BMP3M, PHOS3, MG3, CK3 #### [address] #### VD25H #### [facility] [address] [place] [address] Monocytes/100 WBC (Bld) 7 % Normal 2-10 [facility] Comment on above: Performed By: #### H EMDF, PT, BMP3M, PHOS3, MG3, CK3 #### [address] #### VD25H #### [facility] [address] [place] [address] Myelocytes 1 % Abnormal <1 [facility] Comment on above: Performed By: #### H EMDF, PT, BMP3M, PHOS3, MG3, CK3 #### [address] #### VD25H #### [facility] [address] [place] [address] Protein mass conc 2 % Abnormal <1 [facility] Comment on above: Performed By: #### H EMDF, PT, BMP3M, PHOS3, MG3, CK3 #### [place] [address] [place], [place] #### VD25H #### [facility] [address] [place] [address] RBC morphology finding Nom (Bld) See Prev Normal [facility] Comment on above: Performed By: #### H EMDF, PT, BMP3M, PHOS3, MG3, CK3 #### [place] [address] [place], [place] #### VD25H #### [facility] [address] [place] [address] Seg Neutrophils 59 % Normal 40-80 [facility] Comment on above: Performed By: #### H EMDF, PT, BMP3M, PHOS3, MG3, CK3 #### [place] [address] [place], [place] #### VD25H #### [facility] [address] [place] [address] Abs Baso Cnt 0.0 10*3/uL Normal 0.0-0.2 [facility] Comment on above: Performed By: #### H EMDF, PT, BMP3M, PHOS3, MG3, CK3 #### [place] [address] [place], [place] #### VD25H #### [facility] [address] [place] [address] Basophils/100 WBC (Bld) 0 % Normal 0-2 [facility] Comment on above: Performed By: #### H EMDF, PT, BMP3M, PHOS3, MG3, CK3 #### [place] [address] [place], [place] #### VD25H #### [facility] [address] [place] [address] Cells counted 100 Normal [facility] Comment on above: Performed By: #### H EMDF, PT, BMP3M, PHOS3, MG3, CK3 #### [address] [place], [place] #### VD25H #### [facility] [address] [place] [address] Phosphoruson 08-18-2018 Phosphate mass conc 4.6 mg/dL High 2.5-4.5 [facility] Comment on above: Performed By: #### H EMDF, PT, BMP3M, PHOS3, MG3, CK3 #### [place] [address] [place], [place] #### VD25H #### [facility] [address] [place] [address] Basic Metabolic Panelon 07-30 Calcium mass conc 7.7 mg/dL Low 8.4-10.4 [facility] Comment on above: Performed By: #### H EMDF, PT, BMP3M, PHOS3, MG3, CK3 #### [address] #### VD25H #### [place] [address] [place] [address] Anion gap molar conc 7 Normal [facility] Comment on above: Performed By: #### H EMDF, PT, BMP3M, PHOS3, MG3, CK3 #### [address], [place] #### VD25H #### [facility] [address] [place] [address] CO2 molar conc 25 mmol/L Normal 22-30 [facility] Comment on above: Performed By: #### H EMDF, PT, BMP3M, PHOS3, MG3, CK3 #### [address], [place] #### VD25H #### [facility] [address] [place] [address] Creatinine mass conc 0.59 mg/dL Normal 0.52-1.25 [facility] Comment on above: Performed By: #### H EMDF, PT, BMP3M, PHOS3, MG3, CK3 #### [place] [address] [place] [address] #### VD25H #### [facility] [address] [place] [address] GFR/1.73 sq M predicted among blacks MDRD vol rate/area (S/P/Bld) mL/min/{1.73_m2} Normal >60 [facility] Comment on above: Performed By: #### H EMDF, PT, BMP3M, PHOS3, MG3, CK3 #### [address] [address] #### VD25H #### [place] [address] [place] [address] GFR/1.73 sq M predicted among non-blacks MDRD vol rate/area (S/P/Bld) mL/min/{1.73_m2} Normal >60 [facility] Comment on above: Result Comment: Sour ce- MDRD equation with creatinine calibration to IDMS(NKDEP) eGFR not recommended for drug dose adjustment Performed By: #### H EMDF, PT, BMP3M, PHOS3, MG3, CK3 #### [address] #### VD25H #### [facility] [address] [place] [address] Glucose mass conc 116 mg/dL High 70-100 [facility] Comment on above: Performed By: #### H EMDF, PT, BMP3M, PHOS3, MG3, CK3 #### [address] #### VD25H #### [facility] [address] [place] [address] Urea nitrogen mass conc 12 mg/dL Normal 7-20 [facility] Comment on above: Performed By: #### H EMDF, PT, BMP3M, PHOS3, MG3, CK3 #### [address] #### VD25H #### [facility] [address] [place] [address] Potassium molar conc 3.2 mmol/L Low 3.5-5.1 [facility] Comment on above: Performed By: #### H EMDF, PT, BMP3M, PHOS3, MG3, CK3 #### [facility] [address] [place] [address] #### VD25H #### [facility] [address] [place] [address] Sodium molar conc 138 mmol/L Normal 135-145 [facility] Comment on above: Performed By: #### H EMDF, PT, BMP3M, PHOS3, MG3, CK3 #### [facility] [address] [place] [address] #### VD25H #### [facility] [address] [place] [address] Chloride molar conc 106 mmol/L Normal 98-107 [facility] Comment on above: Performed By: #### H EMDF, PT, BMP3M, PHOS3, MG3, CK3 #### [facility] [address] [place] [address] #### VD25H #### [facility] [address] [place] [address] CR Chest Portableon 08-18-19 19 CR Chest Portable Patient Name: KATHYA HOOPER Diagnostic Radiology Exam Date/Time 08/17/2018 17:54:46 EDT Exam CR Chest Portable Ordering Physician SALO DAVIS Accession Number [id number] CPT4 Codes 63476 () Reason For Exam line placement Report [...] Transcribed Date and Time: 08/17/2018 6:05 Normal [facility] CR Chest Portable Patient Name: KATHYA HOOPER Diagnostic Radiology Exam Date/Time 08/17/2018 06:11:03 EDT Exam CR Chest Portable Ordering Physician ETIENNE VELÁSQUEZ KATHYA Costa Accession Number [id number] CPT4 Codes 04889 () Reason For Exam follow left pleural [...] Transcribed Date and Time: 08/17/2018 7:16 Normal [facility] Ferritinon 08-17-2018 Ferritin mass conc 1100 ng/mL High 18-464 [facility] Comment on above: Performed By: #### H EMDF, PT, BMP3M, PHOS3, MG3, CK3 #### [facility] [address] [place] [address] #### VD25H #### [facility] [address] [place] [address] Folateon 08-17-2018 Folate 15.1 ng/mL Normal 2.8-20.0 [facility] Comment on above: Performed By: #### H EMDF, PT, BMP3M, PHOS3, MG3, CK3 #### [facility] [address] [place] [address] #### VD25H #### [facility] [address] [place] [address] Glucose,Bedsideon 08-17-2018 Glucose mass conc 133 mg/dL High 70-100 [facility] Comment on above: Result Comment: Test performed by glucose meter. Results may be 10%-15% lower than serum/plasma values. (CLIA ID [id number]) Performed By: #### H EMDF, PT, BMP3M, PHOS3, MG3, CK3 #### [address] #### VD25H #### [facility] [address] [place] [address] Hemoglobin A1Con 08-17-2018 Hemoglobin A1c/Hemoglobin.total mass fraction (Bld) 117 mg/dL Normal [facility] Comment on above: Performed By: #### H EMDF, PT, BMP3M, PHOS3, MG3, CK3 #### [address] [address] #### VD25H #### [facility] [address] [place] [address] Hemoglobin A1c/Hemoglobin.total mass fraction (Bld) 5.7 % Normal 4.0-5.7 [facility] Comment on above: Result Comment: --Hg bA1C levels may not be accurate in patients who have renal disease, received recent blood transfusions, are anemic, or who have dyshemoglobinemia. Performed By: #### H EMDF, PT, BMP3M, PHOS3, MG3, CK3 #### [facility] [employer] [address] [address] #### VD25H #### [facility] [address] [place] [address] Hemogram w/ Autodiffon 08-17 Erythrocyte distribution width Ratio (RBC) 14.3 % Normal 11.5-14.5 [facility] Comment on above: Performed By: #### H EMDF, PT, BMP3M, PHOS3, MG3, CK3 #### [facility] [address] [place], [place] #### VD25H #### [facility] [address] [place] [address] Hematocrit Volume Fraction (Bld) 29.1 % Low 40.0-52.0 [facility] Comment on above: Performed By: #### H EMDF, PT, BMP3M, PHOS3, MG3, CK3 #### [address] #### VD25H #### [facility] [address] [place] [address] Hemoglobin mass conc (Bld) 9.8 g/dL Low 13.0-18.0 [facility] Comment on above: Performed By: #### H EMDF, PT, BMP3M, PHOS3, MG3, CK3 #### [address] #### VD25H #### [facility] [address] [place] [address] MCH Entitic mass (RBC) 28.4 pg Normal 26.0-34.0 [facility] Comment on above: Performed By: #### H EMDF, PT, BMP3M, PHOS3, MG3, CK3 #### [address] #### VD25H #### [facility] [address] [place] [place] [address] MCHC mass conc (RBC) 33.5 % Normal 32.0-36.0 [facility] Comment on above: Performed By: #### H EMDF, PT, BMP3M, PHOS3, MG3, CK3 #### [address] #### VD25H #### [facility] [address] [place] [address] MCV Entitic volume (RBC) 84.7 fL Normal 80.0-98.0 [facility] Comment on above: Performed By: #### H EMDF, PT, BMP3M, PHOS3, MG3, CK3 #### [address] #### VD25H #### [facility] [address] [place] [address] Platelet mean volume Entitic volume (Bld) 8.1 fL Normal 7.4-10.4 [facility] Comment on above: Performed By: #### H EMDF, PT, BMP3M, PHOS3, MG3, CK3 #### [address] #### VD25H #### [place] [address] [place] [address] Platelets #/vol (Bld) 281 10*3/uL Normal 140-440 [facility] Comment on above: Performed By: #### H EMDF, PT, BMP3M, PHOS3, MG3, CK3 #### [address] #### VD25H #### [facility] [address] [place] [address] RBC #/vol (Bld) 3.44 10*6/uL Low 4.40-5.90 [facility] Comment on above: Performed By: #### H EMDF, PT, BMP3M, PHOS3, MG3, CK3 #### [address] #### VD25H #### [facility] [address] [place] [address] WBC #/vol (Bld) 8.3 10*3/uL Normal 3.6-10.7 [facility] Comment on above: Performed By: #### H EMDF, PT, BMP3M, PHOS3, MG3, CK3 #### [address] #### VD25H #### [facility] [address] [place] [address] Hep B Surface Abon 9 Hep B Surface Ab < 8.0 Normal [facility] Comment on above: Result Comment: Inte rpretation: <8.0 Non-Reactive 8.0-11.9 Equivocal >= 12.0 Ab Detected Performed By: #### H EMDF, PT, BMP3M, PHOS3, MG3, CK3 #### [facility] [address] [place], [place] #### VD25H #### [facility] [address] [place] [address] Hep B Surface Agon 9 Hep B Surface Ag NOT DETECTED Normal Not-Detected [facility] Comment on above: Performed By: #### H EMDF, PT, BMP3M, PHOS3, MG3, CK3 #### [facility] [address] [place] #### VD25H #### [facility] [address] [facility] [address] Hep C Antibodyon 08-17-2018 Hep C Antibody NOT DETECTED Normal Not-Detected [facility] Comment on above: Result Comment: Bharti ents with DETECTED Hepatitis C Ab results should have a new specimen submitted for supplemental testing with a Hepatitis C Quantitative RNA assay (viral load), if clinically indicated. Performed By: #### H EMDF, PT, BMP3M, PHOS3, MG3, CK3 #### [facility] [address] [place], [place] #### VD25H #### [facility] [address] [place] [address] Hepatic Functionon 9 ALP enzyme act/vol 116 U/L Normal 38-126 [facility] Comment on above: Performed By: #### H EMDF, PT, BMP3M, PHOS3, MG3, CK3 #### [facility] [address] [place] #### VD25H #### [facility] [address] [place] [address] ALT enzyme act/vol 370 U/L High 13-69 [facility] Comment on above: Performed By: #### H EMDF, PT, BMP3M, PHOS3, MG3, CK3 #### [facility] [address] [place], [place] #### VD25H #### [facility] [address] [place] [address] AST enzyme act/vol 150 U/L High 15-46 [facility] Comment on above: Performed By: #### H EMDF, PT, BMP3M, PHOS3, MG3, CK3 #### [address] [place], [place] #### VD25H #### [place] [address] [place] [address] Bilirubin mass conc 0.7 mg/dL Normal 0.2-1.3 [facility] Comment on above: Performed By: #### H EMDF, PT, BMP3M, PHOS3, MG3, CK3 #### [address] #### VD25H #### [facility] [address] [place] [address] Bilirubin.direct mass conc 0.0 mg/dL Normal 0.0-0.3 [facility] Comment on above: Performed By: #### H EMDF, PT, BMP3M, PHOS3, MG3, CK3 #### [place] [address] [address] [place], [place] #### VD25H #### [facility] [address] [place] [address] Protein mass conc 5.4 g/dL Low 6.3-8.2 [facility] Comment on above: Performed By: #### H EMDF, PT, BMP3M, PHOS3, MG3, CK3 #### [address], [place] #### VD25H #### [facility] [address] [place] [address] Albumin mass conc 2.5 g/dL Low 3.5-5.0 [facility] Comment on above: Performed By: #### H EMDF, PT, BMP3M, PHOS3, MG3, CK3 #### [facility] [address] [place] #### VD25H #### [facility] [address] [place] [address] Iron AND TIBCon 08-17-2018 Saturation 14 % Low 15-50 [facility] Comment on above: Performed By: #### H EMDF, PT, BMP3M, PHOS3, MG3, CK3 #### [place] [address] [address] [place], [place] #### VD25H #### [facility] [address] [place] [address] Total Iron Binding Cap. 166 ug/dL Low 261-497 [facility] Comment on above: Performed By: #### H EMDF, PT, BMP3M, PHOS3, MG3, CK3 #### [place] [address] [address] [place], [place] #### VD25H #### [facility] [address] [place] [address] Iron, Total 23 ug/dL Low 49-181 [facility] Comment on above: Performed By: #### H EMDF, PT, BMP3M, PHOS3, MG3, CK3 #### [facility] [address] [place] #### VD25H #### [facility] [address] [place] [address] Magnesiumon 08-17-2018 Magnesium mass conc 2.0 mg/dL Normal 1.6-2.3 [facility] Comment on above: Performed By: #### H EMDF, PT, BMP3M, PHOS3, MG3, CK3 #### [facility] [address] [place] #### VD25H #### [facility] [address] [place] [address] Manual Diffon 08-17-2018 Abs Baso Cnt 0.1 10*3/uL Normal 0.0-0.2 [facility] Comment on above: Performed By: #### H EMDF, PT, BMP3M, PHOS3, MG3, CK3 #### [place] [address] [address] [place], [place] #### VD25H #### [facility] [address] [place] [address] Abs Neutrophile Cnt 5.6 10*3/uL Normal 2.2-8.2 [facility] Comment on above: Performed By: #### H EMDF, PT, BMP3M, PHOS3, MG3, CK3 #### [address] #### VD25H #### [facility] [address] [place] [address] Anisocytosis Ql (Bld) Slight Normal [facility] Comment on above: Performed By: #### H EMDF, PT, BMP3M, PHOS3, MG3, CK3 #### [address] #### VD25H #### [facility] [address] [place] [address] Bands 9 % High 0-3 [facility] Comment on above: Performed By: #### H EMDF, PT, BMP3M, PHOS3, MG3, CK3 #### [address] #### VD25H #### [facility] [address] [place] [address] Basophils/100 WBC (Bld) 1 % Normal 0-2 [facility] Comment on above: Performed By: #### H EMDF, PT, BMP3M, PHOS3, MG3, CK3 #### [address] #### VD25H #### [facility] [address] [place] [address] Eosinophils #/vol (Bld) 0.2 10*3/uL Normal 0.0-0.5 [facility] Comment on above: Performed By: #### H EMDF, PT, BMP3M, PHOS3, MG3, CK3 #### [facility] [address] [place] #### VD25H #### [facility] [address] [place] [address] Eosinophils/100 WBC (Bld) 3 % Normal 1-6 [facility] Comment on above: Performed By: #### H EMDF, PT, BMP3M, PHOS3, MG3, CK3 #### [place] [address] [place], [place] #### VD25H #### [facility] [address] [place] [address] Lymphocytes #/vol (Bld) 1.5 10*3/uL Normal 1.1-4.5 [facility] Comment on above: Performed By: #### H EMDF, PT, BMP3M, PHOS3, MG3, CK3 #### [place] [address] [address] [place] #### VD25H #### [facility] [address] [place] [address] Lymphocytes/100 WBC (Bld) 18 % Low 20-40 [facility] Comment on above: Performed By: #### H EMDF, PT, BMP3M, PHOS3, MG3, CK3 #### [facility] [address] [place] #### VD25H #### [facility] [address] [place] [address] Monocytes #/vol (Bld) 0.4 10*3/uL Normal 0.2-1.1 [facility] Comment on above: Performed By: #### H EMDF, PT, BMP3M, PHOS3, MG3, CK3 #### [address] [place] #### VD25H #### [facility] [address] [place] [address] Monocytes/100 WBC (Bld) 5 % Normal 2-10 [facility] Comment on above: Performed By: #### H EMDF, PT, BMP3M, PHOS3, MG3, CK3 #### [facility] [address] [place] #### VD25H #### [facility] [address] [place] [address] Myelocytes 5 % Abnormal <1 [facility] Comment on above: Performed By: #### H EMDF, PT, BMP3M, PHOS3, MG3, CK3 #### [place] [address] [address] [place], [place] #### VD25H #### [facility] [address] [place] [address] Polychromasia Slight Normal [facility] Comment on above: Performed By: #### H EMDF, PT, BMP3M, PHOS3, MG3, CK3 #### [place] [address] [address] [place] #### VD25H #### [facility] [address] [place] [address] RBC morphology finding Nom (Bld) ABNORMAL Normal [facility] Comment on above: Performed By: #### H EMDF, PT, BMP3M, PHOS3, MG3, CK3 #### [address] #### VD25H #### [facility] [address] [place] [address] Seg Neutrophils 59 % Normal 40-80 [facility] Comment on above: Performed By: #### H EMDF, PT, BMP3M, PHOS3, MG3, CK3 #### [address] [place] #### VD25H #### [facility] [address] [place] [address] Toxic Granulation Slight Normal [facility] Comment on above: Performed By: #### H EMDF, PT, BMP3M, PHOS3, MG3, CK3 #### [place] [address] [place] #### VD25H #### [facility] [address] [place] [address] Cells counted 100 Normal [facility] Comment on above: Performed By: #### H EMDF, PT, BMP3M, PHOS3, MG3, CK3 #### [place] [address] [address] [place], [place] #### VD25H #### [facility] [address] [place] [address] Phosphoruson 08-17-2018 Phosphate mass conc 3.9 mg/dL Normal 2.5-4.5 [facility] Comment on above: Performed By: #### H EMDF, PT, BMP3M, PHOS3, MG3, CK3 #### [address] #### VD25H #### [facility] [address] [place] [address] Triglycerideon 08-17-2018 Triglyceride mass conc 104 mg/dL Normal <150 [facility] Comment on above: Performed By: #### H EMDF, PT, BMP3M, PHOS3, MG3, CK3 #### [place] [address] [address] [place] #### VD25H #### [facility] [address] [place] [address] Vitamin B12on 08-17-2018 Cobalamin (Vitamin B12) mass conc 615 pg/mL Normal 239-931 [facility] Comment on above: Performed By: #### H EMDF, PT, BMP3M, PHOS3, MG3, CK3 #### [address] #### VD25H #### [facility] [address] [place] [address] Albumin, Serumon 08-16-2018 Albumin mass conc 2.6 g/dL Low 3.5-5.0 [facility] Comment on above: Performed By: #### H EMDF, PT, BMP3M, PHOS3, MG3, CK3 #### [facility] [address] [facility] [place] [address] #### VD25H #### [facility] [address] [place] [address] CR Abdomen APon 08-16-2018 CR Abdomen AP Patient Name: KATHYA HOOPER Diagnostic Radiology Exam Date/Time 08/16/2018 10:17:24 EDT Exam CR Abdomen AP Ordering Physician [id number] JOEY VILLAGRAN Accession Number [id number] CPT4 Codes 92005 () Reason For Exam dobhoff placement Report [...] Transcribed Date and Time: 08/16/2018 12:33 Normal [facility] CR Chest Portableon 08-17-19 19 CR Chest Portable Patient Name: KATHYA HOOPER Diagnostic Radiology Exam Date/Time 08/16/2018 10:17:24 EDT Exam CR Chest Portable Ordering Physician [id number] JOEY VILLAGRAN Accession Number [id number] CPT4 Codes 18035 () Reason For Exam dyspnea Report PORTABLE [...] Transcribed Date and Time: 08/16/2018 12:31 Normal [facility] Comp Panel with Mg Reflexon 08-16-2018 Calcium mass conc 7.8 mg/dL Low 8.4-10.4 [facility] Comment on above: Performed By: #### H EMDF, PT, BMP3M, PHOS3, MG3, CK3 #### [facility] [address] [place] #### VD25H #### [facility] [address] [place] [address] Glucose mass conc 114 mg/dL High 70-100 [facility] Comment on above: Performed By: #### H EMDF, PT, BMP3M, PHOS3, MG3, CK3 #### [facility] [address] [place] #### VD25H #### [facility] [address] [place] [address] ALP enzyme act/vol 114 U/L Normal 38-126 [facility] Comment on above: Performed By: #### H EMDF, PT, BMP3M, PHOS3, MG3, CK3 #### [facility] [address] [place], [place] #### VD25H #### [facility] [address] [place] [address] ALT enzyme act/vol 539 U/L High 13-69 [facility] Comment on above: Performed By: #### H EMDF, PT, BMP3M, PHOS3, MG3, CK3 #### [facility] [address] [facility] [place] [address] #### VD25H #### [facility] [address] [place] [address] Anion gap molar conc 4 Normal [facility] Comment on above: Performed By: #### H EMDF, PT, BMP3M, PHOS3, MG3, CK3 #### [place] [address] [place], [place] #### VD25H #### [facility] [address] [place] [address] AST enzyme act/vol 460 U/L High 15-46 [facility] Comment on above: Performed By: #### H EMDF, PT, BMP3M, PHOS3, MG3, CK3 #### [address] #### VD25H #### [facility] [address] [place] [address] Bilirubin mass conc 0.7 mg/dL Normal 0.2-1.3 [facility] Comment on above: Performed By: #### H EMDF, PT, BMP3M, PHOS3, MG3, CK3 #### [address] #### VD25H #### [facility] [address] [place] [address] CO2 molar conc 25 mmol/L Normal 22-30 [facility] Comment on above: Performed By: #### H EMDF, PT, BMP3M, PHOS3, MG3, CK3 #### [place] [address] [address] [facility], [place] #### VD25H #### [facility] [address] [place] [address] Creatinine mass conc 0.71 mg/dL Normal 0.52-1.25 [facility] Comment on above: Performed By: #### H EMDF, PT, BMP3M, PHOS3, MG3, CK3 #### [facility] [address] [place], [place] #### VD25H #### [facility] [address] [place] [address] GFR/1.73 sq M predicted among blacks MDRD vol rate/area (S/P/Bld) mL/min/{1.73_m2} Normal >60 [facility] Comment on above: Performed By: #### H EMDF, PT, BMP3M, PHOS3, MG3, CK3 #### [address] #### VD25H #### [facility] [address] [place] [address] GFR/1.73 sq M predicted among non-blacks MDRD vol rate/area (S/P/Bld) mL/min/{1.73_m2} Normal >60 [facility] Comment on above: Result Comment: Sour ce- MDRD equation with creatinine calibration to IDMS(NKDEP) eGFR not recommended for drug dose adjustment Performed By: #### H EMDF, PT, BMP3M, PHOS3, MG3, CK3 #### [address] #### VD25H #### [facility] [address] [place] [place] [address] Protein mass conc 5.1 g/dL Low 6.3-8.2 [facility] Comment on above: Performed By: #### H EMDF, PT, BMP3M, PHOS3, MG3, CK3 #### [address] #### VD25H #### [facility] [address] [place] [address] Urea nitrogen mass conc 22 mg/dL High 7-20 [facility] Comment on above: Performed By: #### H EMDF, PT, BMP3M, PHOS3, MG3, CK3 #### [address] #### VD25H #### [facility] [address] [place] [address] Chloride molar conc 102 mmol/L Normal 98-107 [facility] Comment on above: Performed By: #### H EMDF, PT, BMP3M, PHOS3, MG3, CK3 #### [place] [address] [address] [place], [place] #### VD25H #### [facility] [address] [place] [address] Potassium molar conc 3.1 mmol/L Low 3.5-5.1 [facility] Comment on above: Performed By: #### H EMDF, PT, BMP3M, PHOS3, MG3, CK3 #### [address] #### VD25H #### [facility] [address] [place] [address] Sodium molar conc 131 mmol/L Low 135-145 [facility] Comment on above: Performed By: #### H EMDF, PT, BMP3M, PHOS3, MG3, CK3 #### [address] #### VD25H #### [facility] [address] [place] [address] Albumin mass conc 2.4 g/dL Low 3.5-5.0 [facility] Comment on above: Performed By: #### H EMDF, PT, BMP3M, PHOS3, MG3, CK3 #### [address] #### VD25H #### [facility] [address] [place] [address] Glucose,Bedsideon 08-16-2018 Glucose mass conc 100 mg/dL Normal 70-100 [facility] Comment on above: Result Comment: Test performed by glucose meter. Results may be 10%-15% lower than serum/plasma values. (CLIA ID [id number]) Performed By: #### H EMDF, PT, BMP3M, PHOS3, MG3, CK3 #### [facility] [address] [place] [address] #### VD25H #### [facility] [address] [place] [address] Glucose mass conc 98 mg/dL Normal 70-100 [facility] Comment on above: Result Comment: Test performed by glucose meter. Results may be 10%-15% lower than serum/plasma values. (CLIA ID [id number]) Performed By: #### H EMDF, PT, BMP3M, PHOS3, MG3, CK3 #### [facility] [address] [place] [address] #### VD25H #### [facility] [address] [place] [address] Glucose mass conc 110 mg/dL High 70-100 [facility] Comment on above: Result Comment: Test performed by glucose meter. Results may be 10%-15% lower than serum/plasma values. (CLIA ID [id number]) Performed By: #### H EMDF, PT, BMP3M, PHOS3, MG3, CK3 #### [facility] [address] [place] [address] #### VD25H #### [facility] [address] [place] [address] Glucose mass conc 113 mg/dL High 70-100 [facility] Comment on above: Result Comment: Test performed by glucose meter. Results may be 10%-15% lower than serum/plasma values. (CLIA ID [id number]) Performed By: #### H EMDF, PT, BMP3M, PHOS3, MG3, CK3 #### [facility] [address] [place] [address] #### VD25H #### [facility] [address] [place] [address] Glucose mass conc 126 mg/dL High 70-100 [facility] Comment on above: Result Comment: Test performed by glucose meter. Results may be 10%-15% lower than serum/plasma values. (CLIA ID [id number]) Performed By: #### H EMDF, PT, BMP3M, PHOS3, MG3, CK3 #### [facility] [address] [place], [place] #### VD25H #### [facility] [address] [place] [address] Hemogram w/ Autodiffon 08-16 Abs Baso Cnt 0.0 10*3/uL Normal 0.0-0.2 [facility] Comment on above: Performed By: #### H EMDF, PT, BMP3M, PHOS3, MG3, CK3 #### [address] #### VD25H #### [facility] [address] [place] [place] [address] Abs Neutrophile Cnt 7.7 10*3/uL High 1.8-7.0 [facility] Comment on above: Performed By: #### H EMDF, PT, BMP3M, PHOS3, MG3, CK3 #### [address] #### VD25H #### [facility] [address] [place] [place] [address] Basophils/100 WBC (Bld) 0.5 % Normal 0.0-2.0 [facility] Comment on above: Performed By: #### H EMDF, PT, BMP3M, PHOS3, MG3, CK3 #### [place] [address] [place], [place] #### VD25H #### [facility] [address] [facility] [address] Eosinophils #/vol (Bld) 0.1 10*3/uL Normal 0.0-0.5 [facility] Comment on above: Performed By: #### H EMDF, PT, BMP3M, PHOS3, MG3, CK3 #### [address] #### VD25H #### [facility] [address] [place] [address] Eosinophils/100 WBC (Bld) 1.5 % Normal 1.0-6.0 [facility] Comment on above: Performed By: #### H EMDF, PT, BMP3M, PHOS3, MG3, CK3 #### [address] #### VD25H #### [facility] [address] [place] [address] Erythrocyte distribution width Ratio (RBC) 14.4 % Normal 11.5-14.5 [facility] Comment on above: Performed By: #### H EMDF, PT, BMP3M, PHOS3, MG3, CK3 #### [address] #### VD25H #### [place] [address] [place] [address] Granulocytes/100 WBC (Bld) 79.7 % Normal 40.0-80.0 [facility] Comment on above: Performed By: #### H EMDF, PT, BMP3M, PHOS3, MG3, CK3 #### [address] #### VD25H #### [facility] [address] [place] [address] Hematocrit Volume Fraction (Bld) 27.1 % Low 40.0-52.0 [facility] Comment on above: Performed By: #### H EMDF, PT, BMP3M, PHOS3, MG3, CK3 #### [address] #### VD25H #### [facility] [address] [place] [address] Hemoglobin mass conc (Bld) 9.2 g/dL Low 13.0-18.0 [facility] Comment on above: Performed By: #### H EMDF, PT, BMP3M, PHOS3, MG3, CK3 #### [address] #### VD25H #### [facility] [address] [place] [address] Lymphocytes #/vol (Bld) 1.0 10*3/uL Normal 1.0-4.3 [facility] Comment on above: Performed By: #### H EMDF, PT, BMP3M, PHOS3, MG3, CK3 #### [address] #### VD25H #### [facility] [address] [place] [address] Lymphocytes/100 WBC (Bld) 10.0 % Low 20.0-40.0 [facility] Comment on above: Performed By: #### H EMDF, PT, BMP3M, PHOS3, MG3, CK3 #### [address] #### VD25H #### [place] [address] [place] [address] MCH Entitic mass (RBC) 28.5 pg Normal 26.0-34.0 [facility] Comment on above: Performed By: #### H EMDF, PT, BMP3M, PHOS3, MG3, CK3 #### [address] #### VD25H #### [place] [address] [place] [address] MCHC mass conc (RBC) 33.8 % Normal 32.0-36.0 [facility] Comment on above: Performed By: #### H EMDF, PT, BMP3M, PHOS3, MG3, CK3 #### [address] #### VD25H #### [facility] [address] [place] [address] MCV Entitic volume (RBC) 84.4 fL Normal 80.0-98.0 [facility] Comment on above: Performed By: #### H EMDF, PT, BMP3M, PHOS3, MG3, CK3 #### [address] #### VD25H #### [facility] [address] [place] [address] Monocytes #/vol (Bld) 0.8 10*3/uL Normal 0.0-0.8 [facility] Comment on above: Performed By: #### H EMDF, PT, BMP3M, PHOS3, MG3, CK3 #### [place] [address] [place], [place] #### VD25H #### [facility] [address] [place] [address] Monocytes/100 WBC (Bld) 8.3 % Normal 2.0-10.0 [facility] Comment on above: Performed By: #### H EMDF, PT, BMP3M, PHOS3, MG3, CK3 #### [address] #### VD25H #### [facility] [address] [place] [address] Platelet mean volume Entitic volume (Bld) 8.4 fL Normal 7.4-10.4 [facility] Comment on above: Performed By: #### H EMDF, PT, BMP3M, PHOS3, MG3, CK3 #### [address] #### VD25H #### [facility] [address] [place] [address] Platelets #/vol (Bld) 245 10*3/uL Normal 140-440 [facility] Comment on above: Performed By: #### H EMDF, PT, BMP3M, PHOS3, MG3, CK3 #### [address] #### VD25H #### [facility] [address] [place] [address] RBC #/vol (Bld) 3.21 10*6/uL Low 4.40-5.90 [facility] Comment on above: Performed By: #### H EMDF, PT, BMP3M, PHOS3, MG3, CK3 #### [address] [place], [place] #### VD25H #### [facility] [address] [place] [address] WBC #/vol (Bld) 9.7 10*3/uL Normal 3.6-10.7 [facility] Comment on above: Performed By: #### H EMDF, PT, BMP3M, PHOS3, MG3, CK3 #### [address] [place], [place] #### VD25H #### [facility] [address] [place] [address] Magnesiumon 08-16-2018 Magnesium mass conc 2.1 mg/dL Normal 1.6-2.3 [facility] Comment on above: Performed By: #### H EMDF, PT, BMP3M, PHOS3, MG3, CK3 #### [address] #### VD25H #### [facility] [address] [place] [address] Phosphoruson 08-16-2018 Phosphate mass conc 4.4 mg/dL Normal 2.5-4.5 [facility] Comment on above: Performed By: #### H EMDF, PT, BMP3M, PHOS3, MG3, CK3 #### [address] #### VD25H #### [facility] [address] [place] [address] Potassiumon 08-16-2018 Potassium molar conc 3.5 mmol/L Normal 3.5-5.1 [facility] Comment on above: Performed By: #### H EMDF, PT, BMP3M, PHOS3, MG3, CK3 #### [address] #### VD25H #### [facility] [address] [place] [address] Procalcitoninon 08-16-2018 Protein mass conc 3.10 ng/mL Abnormal <0.10 [facility] Comment on above: Performed By: #### H EMDF, PT, BMP3M, PHOS3, MG3, CK3 #### [address] #### VD25H #### [facility] [address] [place] [address] Prothrombin Timeon 9 INR Coag RelTime (PPP) 1.1 Normal 0.9-1.1 [facility] Comment on [...] EMDF, PT, BMP3M, PHOS3, MG3, CK3 #### [address] #### VD25H #### [facility] [address] [place] [address] Prothrombin time (PT) Coag time (PPP) 11.8 s Normal 9.0-12.0 [facility] Comment on above: Result Comment: . Performed By: #### H EMDF, PT, BMP3M, PHOS3, MG3, CK3 #### [address] #### VD25H #### [facility] [address] [place] [address] US Abdomen Limitedon 019 US Abdomen Limited Patient Name: KATHYA HOOPER Ultrasound Exam Date/Time 08/16/2018 19:12:00 EDT Exam US Abdomen Limited Ordering Physician [id number] ESPINOSA Accession Number [id number] CPT4 Codes 48574 () Reason For Exam elevated transaminases Report [...] Transcribed Date and Time: 08/16/2018 7:26 Normal [facility] Glucose,Bedsideon 08-15-2018 Glucose mass conc 98 mg/dL Normal 70-100 [facility] Comment on above: Result Comment: Test performed by glucose meter. Results may be 10%-15% lower than serum/plasma values. (CLIA ID [id number]) Performed By: #### H EMDF, PT, BMP3M, PHOS3, MG3, CK3 #### [facility] [address] [place] [address] #### VD25H #### [facility] [address] [place] [address] Procalcitoninon 08-15-2018 Interpretation See Below Normal [facility] Comment on above: Result Comment: PCT <0.50 = Low risk of severe sepsis and/or septic shock. PCT >2.00 = High risk of severe sepsis and/or septic shock. Performed By: #### H EMDF, PT, BMP3M, PHOS3, MG3, CK3 #### [facility] [address] [place], [place] #### VD25H #### [facility] [address] [place] [address] CULTURE FUNGUSon 08-13-2018 CULTURE FUNGUS CULTURE FUNGUS --> Status: F No fungus isolated after 21 days. Normal [facility] Comment on above: Order Comment: Speci men Source Comment:Body Fluid Performed By: #### H EMDF, PT, BMP3M, PHOS3, MG3, CK3 #### [place] [address] [place], [place] #### VD25H #### [facility] [address] [place] [address] Hemogram w/ Autodiffon 08-01 Abs Baso Cnt 0.2 10*3/uL Normal 0.0-0.2 [facility] Comment on above: Performed By: #### H EMDF, PT, BMP3M, PHOS3, MG3, CK3 #### [address] [place], [place] #### VD25H #### [facility] [address] [place] [address] Abs Neutrophile Cnt 14.3 10*3/uL High 1.8-7.0 [facility] Comment on above: Performed By: #### H EMDF, PT, BMP3M, PHOS3, MG3, CK3 #### [address] #### VD25H #### [facility] [address] [place] [address] Basophils/100 WBC (Bld) 1.0 % Normal 0.0-2.0 [facility] Comment on above: Performed By: #### H EMDF, PT, BMP3M, PHOS3, MG3, CK3 #### [address] #### VD25H #### [facility] [address] [place] [address] Eosinophils #/vol (Bld) 0.4 10*3/uL Normal 0.0-0.5 [facility] Comment on above: Performed By: #### H EMDF, PT, BMP3M, PHOS3, MG3, CK3 #### [facility] [address] [place], [place] #### VD25H #### [facility] [address] [place] [address] Eosinophils/100 WBC (Bld) 2.3 % Normal 1.0-6.0 [facility] Comment on above: Performed By: #### H EMDF, PT, BMP3M, PHOS3, MG3, CK3 #### [address] #### VD25H #### [facility] [address] [place] [address] Erythrocyte distribution width Ratio (RBC) 13.7 % Normal 11.5-14.5 [facility] Comment on above: Performed By: #### H EMDF, PT, BMP3M, PHOS3, MG3, CK3 #### [address] #### VD25H #### [facility] [address] [place] [address] Granulocytes/100 WBC (Bld) 82.1 % High 40.0-80.0 [facility] Comment on above: Performed By: #### H EMDF, PT, BMP3M, PHOS3, MG3, CK3 #### [address] #### VD25H #### [facility] [address] [place] [address] Hematocrit Volume Fraction (Bld) 31.2 % Low 40.0-52.0 [facility] Comment on above: Performed By: #### H EMDF, PT, BMP3M, PHOS3, MG3, CK3 #### [address] #### VD25H #### [facility] [address] [place] [address] Hemoglobin mass conc (Bld) 10.5 g/dL Low 13.0-18.0 [facility] Comment on above: Performed By: #### H EMDF, PT, BMP3M, PHOS3, MG3, CK3 #### [address] #### VD25H #### [facility] [address] [place] [address] Lymphocytes #/vol (Bld) 1.6 10*3/uL Normal 1.0-4.3 [facility] Comment on above: Performed By: #### H EMDF, PT, BMP3M, PHOS3, MG3, CK3 #### [address] #### VD25H #### [place] [address] [place] [address] Lymphocytes/100 WBC (Bld) 9.1 % Low 20.0-40.0 [facility] Comment on above: Performed By: #### H EMDF, PT, BMP3M, PHOS3, MG3, CK3 #### [address] #### VD25H #### [facility] [address] [place] [address] MCH Entitic mass (RBC) 28.9 pg Normal 26.0-34.0 [facility] Comment on above: Performed By: #### H EMDF, PT, BMP3M, PHOS3, MG3, CK3 #### [address] #### VD25H #### [facility] [address] [place] [address] MCHC mass conc (RBC) 33.7 % Normal 32.0-36.0 [facility] Comment on above: Performed By: #### H EMDF, PT, BMP3M, PHOS3, MG3, CK3 #### [address] #### VD25H #### [facility] [address] [place] [address] MCV Entitic volume (RBC) 85.5 fL Normal 80.0-98.0 [facility] Comment on above: Performed By: #### H EMDF, PT, BMP3M, PHOS3, MG3, CK3 #### [address] #### VD25H #### [facility] [address] [place] [address] Monocytes #/vol (Bld) 1.0 10*3/uL High 0.0-0.8 [facility] Comment on above: Performed By: #### H EMDF, PT, BMP3M, PHOS3, MG3, CK3 #### [address] #### VD25H #### [facility] [address] [place] [address] Monocytes/100 WBC (Bld) 5.5 % Normal 2.0-10.0 [facility] Comment on above: Performed By: #### H EMDF, PT, BMP3M, PHOS3, MG3, CK3 #### [address] #### VD25H #### [facility] [address] [place] [address] Platelet mean volume Entitic volume (Bld) 8.0 fL Normal 7.4-10.4 [facility] Comment on above: Performed By: #### H EMDF, PT, BMP3M, PHOS3, MG3, CK3 #### [address] #### VD25H #### [facility] [address] [place] [address] Platelets #/vol (Bld) 425 10*3/uL Normal 140-440 [facility] Comment on above: Performed By: #### H EMDF, PT, BMP3M, PHOS3, MG3, CK3 #### [address], [place] #### VD25H #### [facility] [address] [place] [address] RBC #/vol (Bld) 3.65 10*6/uL Low 4.40-5.90 [facility] Comment on above: Performed By: #### H EMDF, PT, BMP3M, PHOS3, MG3, CK3 #### [address] #### VD25H #### [facility] [address] [place] [address] WBC #/vol (Bld) 17.4 10*3/uL High 3.6-10.7 [facility] Comment on above: Performed By: #### H EMDF, PT, BMP3M, PHOS3, MG3, CK3 #### [address] #### VD25H #### [facility] [address] [place] [address] Basic Metabolic Panelon 04-0 Calcium mass conc 8.3 mg/dL Low 8.4-10.4 [facility] Comment on above: Performed By: #### H EMDF, PT, BMP3M, PHOS3, MG3, CK3 #### [address] #### VD25H #### [facility] [address] [place] [address] Glucose mass conc 114 mg/dL High 70-100 [facility] Comment on above: Performed By: #### H EMDF, PT, BMP3M, PHOS3, MG3, CK3 #### [address] #### VD25H #### [facility] [address] [place] [address] Anion gap molar conc 10 Normal [facility] Comment on above: Performed By: #### H EMDF, PT, BMP3M, PHOS3, MG3, CK3 #### [address] [place], [place] #### VD25H #### [facility] [address] [place] [address] CO2 molar conc 34 mmol/L High 22-30 [facility] Comment on above: Performed By: #### H EMDF, PT, BMP3M, PHOS3, MG3, CK3 #### [address] #### VD25H #### [facility] [address] [place] [address] Creatinine mass conc 0.52 mg/dL Normal 0.52-1.25 [facility] Comment on above: Performed By: #### H EMDF, PT, BMP3M, PHOS3, MG3, CK3 #### [address] #### VD25H #### [place] [address] [place] [address] GFR/1.73 sq M predicted among blacks MDRD vol rate/area (S/P/Bld) mL/min/{1.73_m2} Normal >60 [facility] Comment on above: Performed By: #### H EMDF, PT, BMP3M, PHOS3, MG3, CK3 #### [address] #### VD25H #### [place] [address] [place] [address] GFR/1.73 sq M predicted among non-blacks MDRD vol rate/area (S/P/Bld) mL/min/{1.73_m2} Normal >60 [facility] Comment on above: Result Comment: Sour ce- MDRD equation with creatinine calibration to IDMS(NKDEP) eGFR not recommended for drug dose adjustment Performed By: #### H EMDF, PT, BMP3M, PHOS3, MG3, CK3 #### [address] #### VD25H #### [facility] [address] [place] [address] Urea nitrogen mass conc 23 mg/dL High 7-20 [facility] Comment on above: Performed By: #### H EMDF, PT, BMP3M, PHOS3, MG3, CK3 #### [place] [address] [place], [place] #### VD25H #### [facility] [address] [place] [address] Chloride molar conc 95 mmol/L Low 98-107 [facility] Comment on above: Performed By: #### H EMDF, PT, BMP3M, PHOS3, MG3, CK3 #### [place] [address] [place], [place] #### VD25H #### [place] [address] [place] [address] Potassium molar conc 3.7 mmol/L Normal 3.5-5.1 [facility] Comment on above: Performed By: #### H EMDF, PT, BMP3M, PHOS3, MG3, CK3 #### [address] [place], [place] #### VD25H #### [facility] [address] [place] [address] Sodium molar conc 139 mmol/L Normal 135-145 [facility] Comment on above: Performed By: #### H EMDF, PT, BMP3M, PHOS3, MG3, CK3 #### [place] [address] [place] #### VD25H #### [facility] [address] [place] [address] Hemogram w/ Autodiffon 07-31 Abs Baso Cnt 0.2 10*3/uL Normal 0.0-0.2 [facility] Comment on above: Performed By: #### H EMDF, PT, BMP3M, PHOS3, MG3, CK3 #### [place] [address] [place], [place] #### VD25H #### [facility] [address] [place] [address] Abs Neutrophile Cnt 13.4 10*3/uL High 1.8-7.0 [facility] Comment on above: Performed By: #### H EMDF, PT, BMP3M, PHOS3, MG3, CK3 #### [address] #### VD25H #### [facility] [address] [place] [address] Basophils/100 WBC (Bld) 1.0 % Normal 0.0-2.0 [facility] Comment on above: Performed By: #### H EMDF, PT, BMP3M, PHOS3, MG3, CK3 #### [address] #### VD25H #### [place] [address] [place] [address] Eosinophils #/vol (Bld) 0.5 10*3/uL Normal 0.0-0.5 [facility] Comment on above: Performed By: #### H EMDF, PT, BMP3M, PHOS3, MG3, CK3 #### [address] #### VD25H #### [place] [address] [place] [address] Eosinophils/100 WBC (Bld) 3.1 % Normal 1.0-6.0 [facility] Comment on above: Performed By: #### H EMDF, PT, BMP3M, PHOS3, MG3, CK3 #### [address] #### VD25H #### [place] [address] [place] [address] Erythrocyte distribution width Ratio (RBC) 14.0 % Normal 11.5-14.5 [facility] Comment on above: Performed By: #### H EMDF, PT, BMP3M, PHOS3, MG3, CK3 #### [address] #### VD25H #### [facility] [address] [place] [address] Granulocytes/100 WBC (Bld) 80.6 % High 40.0-80.0 [facility] Comment on above: Performed By: #### H EMDF, PT, BMP3M, PHOS3, MG3, CK3 #### [facility] [address] [place], [place] #### VD25H #### [facility] [address] [place] [address] Hematocrit Volume Fraction (Bld) 32.3 % Low 40.0-52.0 [facility] Comment on above: Performed By: #### H EMDF, PT, BMP3M, PHOS3, MG3, CK3 #### [place] [address] [place], [place] #### VD25H #### [facility] [address] [place] [address] Hemoglobin mass conc (Bld) 10.8 g/dL Low 13.0-18.0 [facility] Comment on above: Performed By: #### H EMDF, PT, BMP3M, PHOS3, MG3, CK3 #### [place] [address] [place] #### VD25H #### [facility] [address] [place] [address] Lymphocytes #/vol (Bld) 1.6 10*3/uL Normal 1.0-4.3 [facility] Comment on above: Performed By: #### H EMDF, PT, BMP3M, PHOS3, MG3, CK3 #### [place] [address] [place], [place] #### VD25H #### [facility] [address] [place] [address] Lymphocytes/100 WBC (Bld) 9.8 % Low 20.0-40.0 [facility] Comment on above: Performed By: #### H EMDF, PT, BMP3M, PHOS3, MG3, CK3 #### [place] [address] [place] #### VD25H #### [facility] [address] [place] [address] MCH Entitic mass (RBC) 28.9 pg Normal 26.0-34.0 [facility] Comment on above: Performed By: #### H EMDF, PT, BMP3M, PHOS3, MG3, CK3 #### [place] [address] [place] #### VD25H #### [facility] [address] [place] [address] MCHC mass conc (RBC) 33.6 % Normal 32.0-36.0 [facility] Comment on above: Performed By: #### H EMDF, PT, BMP3M, PHOS3, MG3, CK3 #### [address] #### VD25H #### [facility] [address] [place] [address] MCV Entitic volume (RBC) 86.1 fL Normal 80.0-98.0 [facility] Comment on above: Performed By: #### H EMDF, PT, BMP3M, PHOS3, MG3, CK3 #### [address] #### VD25H #### [facility] [address] [place] [address] Monocytes #/vol (Bld) 0.9 10*3/uL High 0.0-0.8 [facility] Comment on above: Performed By: #### H EMDF, PT, BMP3M, PHOS3, MG3, CK3 #### [address] [place], [place] #### VD25H #### [facility] [address] [place] [address] Monocytes/100 WBC (Bld) 5.5 % Normal 2.0-10.0 [facility] Comment on above: Performed By: #### H EMDF, PT, BMP3M, PHOS3, MG3, CK3 #### [address] [place], [place] #### VD25H #### [facility] [address] [place] [address] Platelet mean volume Entitic volume (Bld) 8.2 fL Normal 7.4-10.4 [facility] Comment on above: Performed By: #### H EMDF, PT, BMP3M, PHOS3, MG3, CK3 #### [address] [place], [place] #### VD25H #### [facility] [address] [place] [address] Platelets #/vol (Bld) 475 10*3/uL High 140-440 [facility] Comment on above: Performed By: #### H EMDF, PT, BMP3M, PHOS3, MG3, CK3 #### [address] #### [id number] #### [facility] [address] [place] [address] RBC #/vol (Bld) 3.75 10*6/uL Low 4.40-5.90 [facility] Comment on above: Performed By: #### H EMDF, PT, BMP3M, PHOS3, MG3, CK3 #### [address] #### [id number] #### [facility] [address] [place] [address] WBC #/vol (Bld) 16.6 10*3/uL High 3.6-10.7 [facility] Comment on above: Performed By: #### H EMDF, PT, BMP3M, PHOS3, MG3, CK3 #### [address] #### [id number] #### [place] [address] [place] [address] Magnesiumon 07-31-2018 Magnesium mass conc 2.4 mg/dL High 1.6-2.3 [facility] Comment on above: Performed By: #### H EMDF, PT, BMP3M, PHOS3, MG3, CK3 #### [place] [address] [address] [place], [place] #### VD25H #### [facility] [address] [place] [address] Phosphoruson 07-31-2018 Phosphate mass conc 4.5 mg/dL Normal 2.5-4.5 [facility] Comment on above: Performed By: #### H EMDF, PT, BMP3M, PHOS3, MG3, CK3 #### [address] #### VD25H #### [facility] [address] [place] [address] Basic Metabolic Panelon Calcium mass conc 8.6 mg/dL Normal 8.4-10.4 [facility] Comment on above: Performed By: #### H EMDF, PT, BMP3M, PHOS3, MG3, CK3 #### [address] #### VD25H #### [facility] [address] [place] [address] Anion gap molar conc 8 Normal [facility] Comment on above: Performed By: #### H EMDF, PT, BMP3M, PHOS3, MG3, CK3 #### [address] #### VD25H #### [facility] [address] [place] [address] CO2 molar conc 34 mmol/L High 22-30 [facility] Comment on above: Performed By: #### H EMDF, PT, BMP3M, PHOS3, MG3, CK3 #### [address] #### VD25H #### [place] [address] [place] [address] Creatinine mass conc 0.56 mg/dL Normal 0.52-1.25 [facility] Comment on above: Performed By: #### H EMDF, PT, BMP3M, PHOS3, MG3, CK3 #### [address] [address] #### VD25H #### [facility] [address] [place] [address] GFR/1.73 sq M predicted among blacks MDRD vol rate/area (S/P/Bld) mL/min/{1.73_m2} Normal >60 [facility] Comment on above: Performed By: #### H EMDF, PT, BMP3M, PHOS3, MG3, CK3 #### [address] #### VD25H #### [facility] [address] [place] [address] GFR/1.73 sq M predicted among non-blacks MDRD vol rate/area (S/P/Bld) mL/min/{1.73_m2} Normal >60 [facility] Comment on above: Result Comment: Sour ce- MDRD equation with creatinine calibration to IDMS(NKDEP) eGFR not recommended for drug dose adjustment Performed By: #### H EMDF, PT, BMP3M, PHOS3, MG3, CK3 #### [address] #### VD25H #### [facility] [address] [place] [address] Glucose mass conc 121 mg/dL High 70-100 [facility] Comment on above: Performed By: #### H EMDF, PT, BMP3M, PHOS3, MG3, CK3 #### [address] #### VD25H #### [facility] [address] [place] [address] Urea nitrogen mass conc 29 mg/dL High 7-20 [facility] Comment on above: Performed By: #### H EMDF, PT, BMP3M, PHOS3, MG3, CK3 #### [facility] [address] [facility] [place] [address] #### VD25H #### [facility] [address] [place] [address] Chloride molar conc 99 mmol/L Normal 98-107 [facility] Comment on above: Performed By: #### H EMDF, PT, BMP3M, PHOS3, MG3, CK3 #### [facility] [address] [facility] [place] [address] #### VD25H #### [facility] [address] [place] [address] Potassium molar conc 3.7 mmol/L Normal 3.5-5.1 [facility] Comment on above: Performed By: #### H EMDF, PT, BMP3M, PHOS3, MG3, CK3 #### [place] [address] [place] [address] #### VD25H #### [facility] [address] [place] [address] Sodium molar conc 141 mmol/L Normal 135-145 [facility] Comment on above: Performed By: #### H EMDF, PT, BMP3M, PHOS3, MG3, CK3 #### [facility] [address] [facility] [place] [address] #### VD25H #### [facility] [address] [place] [address] CR Abdomen APon 07-30-2018 CR Abdomen AP Patient Name: KATHYA HOOPER Diagnostic Radiology Exam Date/Time 07/30/2018 10:28:42 EDT Exam CR Abdomen AP Ordering Physician INDRA JACOBSON Accession Number [id number] CPT4 Codes 98770 () Reason For Exam abd distension Report [...] Transcribed Date and Time: 07/30/2018 3:57 Normal [facility] CR Chest Portableon 07-31-19 CR Chest Portable Patient Name: KATHYA HOOPER Diagnostic Radiology Exam Date/Time 07/30/2018 12:28:13 EDT Exam CR Chest Portable Ordering Physician SALO DAVIS Accession Number [id number] CPT4 Codes 29804 () Reason For Exam line reposition Report [...] Transcribed Date and Time: 07/30/2018 1:32 Normal [facility] CR Chest Portable Patient Name: KATHYA HOOPER Diagnostic Radiology Exam Date/Time 07/30/2018 06:40:08 EDT Exam CR Chest Portable Ordering Physician MARIA EUGENIA PEREZ Accession Number [id number] CPT4 Codes 46707 () Reason For Exam ETT placement Report [...] Transcribed Date and Time: 07/30/2018 10:26 [facility] 07-30-2018 Glucose mass conc 125 mg/dL High 70-100 [facility] [employer] [facility] Comment on above: Result Comment: Test performed by glucose meter. Results may be 10%-15% lower than serum/plasma values. (CLIA ID [id number]) Performed By: #### H EMDF, PT, BMP3M, PHOS3, MG3, CK3 #### [facility] [address] [place] [address] #### VD25H #### [facility] [address] [place] [address] Glucose mass conc 117 mg/dL High 70-100 [facility] Comment on above: Result Comment: Test performed by glucose meter. Results may be 10%-15% lower than serum/plasma values. (CLIA ID [id number]) Performed By: #### H EMDF, PT, BMP3M, PHOS3, MG3, CK3 #### [facility] [address] [place], [place] #### VD25H #### [facility] [address] [place] [address] Glucose mass conc 44 mg/dL Low 70-100 [facility] Comment on above: Result Comment: Repe ated Test; Test performed by glucose meter. Results may be 10%-15% lower than serum/plasma values. (CLIA ID [id number]) Performed By: #### H EMDF, PT, BMP3M, PHOS3, MG3, CK3 #### [facility] [address] [place], [place] #### VD25H #### [facility] [address] [place] [address] Hemogram w/ Autodiffon 07-30 Abs Baso Cnt 0.2 10*3/uL Normal 0.0-0.2 [facility] Comment on above: Performed By: #### H EMDF, PT, BMP3M, PHOS3, MG3, CK3 #### [facility] [address] [place] #### VD25H #### [facility] [address] [place] [address] Abs Neutrophile Cnt 13.2 10*3/uL High 1.8-7.0 [facility] Comment on above: Performed By: #### H EMDF, PT, BMP3M, PHOS3, MG3, CK3 #### [facility] [address] [place] #### VD25H #### [facility] [address] [place] [address] Basophils/100 WBC (Bld) 0.9 % Normal 0.0-2.0 [facility] Comment on above: Performed By: #### H EMDF, PT, BMP3M, PHOS3, MG3, CK3 #### [address] #### VD25H #### [facility] [address] [place] [address] Eosinophils #/vol (Bld) 0.5 10*3/uL Normal 0.0-0.5 [facility] Comment on above: Performed By: #### H EMDF, PT, BMP3M, PHOS3, MG3, CK3 #### [facility] [address] [place] #### VD25H #### [facility] [address] [place] [address] Eosinophils/100 WBC (Bld) 2.8 % Normal 1.0-6.0 [facility] Comment on above: Performed By: #### H EMDF, PT, BMP3M, PHOS3, MG3, CK3 #### [place] [address] [place], [place] #### VD25H #### [facility] [address] [place] [address] Erythrocyte distribution width Ratio (RBC) 13.7 % Normal 11.5-14.5 [facility] Comment on above: Performed By: #### H EMDF, PT, BMP3M, PHOS3, MG3, CK3 #### [address] #### VD25H #### [facility] [address] [place] [address] Granulocytes/100 WBC (Bld) 76.6 % Normal 40.0-80.0 [facility] Comment on above: Performed By: #### H EMDF, PT, BMP3M, PHOS3, MG3, CK3 #### [place] [address] [place], [place] #### VD25H #### [facility] [address] [place] [address] Hematocrit Volume Fraction (Bld) 31.4 % Low 40.0-52.0 [facility] Comment on above: Performed By: #### H EMDF, PT, BMP3M, PHOS3, MG3, CK3 #### [address] #### VD25H #### [facility] [address] [place] [address] Hemoglobin mass conc (Bld) 10.6 g/dL Low 13.0-18.0 [facility] Comment on above: Performed By: #### H EMDF, PT, BMP3M, PHOS3, MG3, CK3 #### [facility] [address] [place] #### VD25H #### [facility] [address] [place] [address] Lymphocytes #/vol (Bld) 2.2 10*3/uL Normal 1.0-4.3 [facility] Comment on above: Performed By: #### H EMDF, PT, BMP3M, PHOS3, MG3, CK3 #### [address] #### VD25H #### [facility] [address] [place] [address] Lymphocytes/100 WBC (Bld) 12.9 % Low 20.0-40.0 [facility] Comment on above: Performed By: #### H EMDF, PT, BMP3M, PHOS3, MG3, CK3 #### [address] #### VD25H #### [facility] [address] [place] [address] MCH Entitic mass (RBC) 29.2 pg Normal 26.0-34.0 [facility] Comment on above: Performed By: #### H EMDF, PT, BMP3M, PHOS3, MG3, CK3 #### [address] #### VD25H #### [facility] [address] [place] [address] MCHC mass conc (RBC) 33.8 % Normal 32.0-36.0 [facility] Comment on above: Performed By: #### H EMDF, PT, BMP3M, PHOS3, MG3, CK3 #### [address] #### VD25H #### [facility] [address] [place] [address] MCV Entitic volume (RBC) 86.4 fL Normal 80.0-98.0 [facility] Comment on above: Performed By: #### H EMDF, PT, BMP3M, PHOS3, MG3, CK3 #### [address] [place], [place] #### VD25H #### [facility] [address] [place] [address] Monocytes #/vol (Bld) 1.2 10*3/uL High 0.0-0.8 [facility] Comment on above: Performed By: #### H EMDF, PT, BMP3M, PHOS3, MG3, CK3 #### [address] #### VD25H #### [place] [address] [place] [address] Monocytes/100 WBC (Bld) 6.8 % Normal 2.0-10.0 [facility] Comment on above: Performed By: #### H EMDF, PT, BMP3M, PHOS3, MG3, CK3 #### [address] #### VD25H #### [place] [address] [place] [address] Platelet mean volume Entitic volume (Bld) 8.1 fL Normal 7.4-10.4 [facility] Comment on above: Performed By: #### H EMDF, PT, BMP3M, PHOS3, MG3, CK3 #### [address] #### VD25H #### [facility] [address] [place] [address] Platelets #/vol (Bld) 507 10*3/uL High 140-440 [facility] Comment on above: Performed By: #### H EMDF, PT, BMP3M, PHOS3, MG3, CK3 #### [address] #### VD25H #### [facility] [employer] [facility] [address] [place] [address] RBC #/vol (Bld) 3.64 10*6/uL Low 4.40-5.90 [facility] Comment on above: Performed By: #### H EMDF, PT, BMP3M, PHOS3, MG3, CK3 #### [facility] [address] [place], [place] #### VD25H #### [facility] [address] [place] [address] WBC #/vol (Bld) 17.2 10*3/uL High 3.6-10.7 [facility] Comment on above: Performed By: #### H EMDF, PT, BMP3M, PHOS3, MG3, CK3 #### [facility] [employer] [place] [address] [place], [place] #### VD25H #### [facility] [address] [place] [address] Magnesiumon 07-30-2018 Magnesium mass conc 2.5 mg/dL High 1.6-2.3 [facility] [employer] Comment on above: Performed By: #### H EMDF, PT, BMP3M, PHOS3, MG3, CK3 #### [facility] [employer] [place] [address] [place], [place] #### VD25H #### [facility] [address] [place] [address] Phosphoruson 07-30-2018 Phosphate mass conc 4.5 mg/dL Normal 2.5-4.5 [facility] [employer] Comment on above: Performed By: #### H EMDF, PT, BMP3M, PHOS3, MG3, CK3 #### [facility] [employer] [place] [place], [place] #### VD25H #### [facility] [address] [place] [address] VL Venous Duplex US Lower Ex t Bilateralon 07-30-2018 VL Venous Duplex US Lower Ext Bilateral Patient Name: KATHYA HOOPER Ultrasound Exam Date/Time 07/30/2018 12:27:47 EDT Exam VL Venous Duplex US Lower Ext Bilateral Ordering Physician ETIENNE MARTÍNEZ JULIE Accession Number [id number] CPT4 Codes 36305 () Reason For Exam edema Report [facility] --- Lower Extremity Venous Duplex Report Patient Name: Kathya Hooper : 1955 Study Date: 07/30/2018 W (63yrs) Age: 63 Account: [id number] Gender: M Loc: T209 BP: Ordering: Yesenia Martínez Technologist: Ordering Physician: Yesenia Martínez Internet Marketing Assistant: Barbara Suarez RDMS, T Interpreting Physician: Krysta Arora --- Location: [facility] --- INDICATIONS: Edema. --- CONCLUSIONS 1. [...] performed. The images were obtained using a [employer] E9 vascular ultrasound machine. --- VENOUS FLOW [...] ---------+-------+--- --+ Electronically signed by: Krysta Arora [id number] Final Dictated: 07/30/2018 1:30 pm Dictating Physician: KRYSTA ARORA Signed Date and Time: 07/30/2018 1:29 pm Signed by: KRYSTA ARORA Normal [facility] Arterial Blood Gaseson 07-29 CO2 molar conc 34.4 mmol/L High 23.0-27.0 [facility] Comment on above: Performed By: #### H EMDF, PT, BMP3M, PHOS3, MG3, CK3 #### [facility] [employer] [address] [place] [address] #### VD25H #### [facility] [address] [place] [address] HCO3 molar conc (Bld) 33.0 mmol/L High 21.0-25.0 [facility] Comment on above: Performed By: #### H EMDF, PT, BMP3M, PHOS3, MG3, CK3 #### [facility] [address] [place] #### VD25H #### [facility] [address] [place] [address] Hemoglobin mass conc (Bld) 11.5 g/dL Normal [employer] [facility] Comment on above: Performed By: #### H EMDF, PT, BMP3M, PHOS3, MG3, CK3 #### [place] [address] [place] #### VD25H #### [facility] [address] [place] [address] Oxygen ppres (Bld) 84.2 mm[Hg] Normal 80.0-100.0 [facility] Comment on above: Performed By: #### H EMDF, PT, BMP3M, PHOS3, MG3, CK3 #### [address] [place], [place] #### VD25H #### [facility] [address] [place] [address] Oxygen saturation in Blood 96.2 % Normal 95.0-100.0 [facility] Comment on above: Performed By: #### H EMDF, PT, BMP3M, PHOS3, MG3, CK3 #### [place] [place] #### VD25H #### [facility] [address] [place] [address] pCO2 46.8 mm[Hg] High 35.0-45.0 [facility] Comment on above: Performed By: #### H EMDF, PT, BMP3M, PHOS3, MG3, CK3 #### [place] [address] [place] #### VD25H #### [facility] [address] [place] [address] pH (Bld) 7.466 High 7.350-7.450 [facility] Comment on above: Performed By: #### H EMDF, PT, BMP3M, PHOS3, MG3, CK3 #### [place] [address] [place] #### VD25H #### [facility] [address] [place] [address] Std Base Excess 8.2 mmol/L High -3.0-3.0 [facility] Comment on above: Performed By: #### H EMDF, PT, BMP3M, PHOS3, MG3, CK3 #### [place] [address] [place] #### VD25H #### [facility] [address] [place] [address] FIO2 .30 Normal [facility] Comment on above: Performed By: #### H EMDF, PT, BMP3M, PHOS3, MG3, CK3 #### [address] [place], [place] #### VD25H #### [facility] [address] [place] [address] Basic Metabolic Panelon 03-3 Calcium mass conc 8.5 mg/dL Normal 8.4-10.4 [facility] Comment on above: Performed By: #### H EMDF, PT, BMP3M, PHOS3, MG3, CK3 #### [place] [place] #### VD25H #### [facility] [address] [place] [address] Glucose mass conc 163 mg/dL High 70-100 [facility] Comment on above: Performed By: #### H EMDF, PT, BMP3M, PHOS3, MG3, CK3 #### [address] [place], [place] #### VD25H #### [facility] [address] [place] [address] Anion gap molar conc 10 Normal [facility] Comment on above: Performed By: #### H EMDF, PT, BMP3M, PHOS3, MG3, CK3 #### [place] [address] [place] #### VD25H #### [facility] [address] [place] [address] CO2 molar conc 37 mmol/L High 22-30 [facility] Comment on above: Performed By: #### H EMDF, PT, BMP3M, PHOS3, MG3, CK3 #### [address] [address] #### VD25H #### [facility] [address] [place] [address] Creatinine mass conc 0.57 mg/dL Normal 0.52-1.25 [facility] Comment on above: Performed By: #### H EMDF, PT, BMP3M, PHOS3, MG3, CK3 #### [address] #### VD25H #### [place] [address] [place] [address] GFR/1.73 sq M predicted among blacks MDRD vol rate/area (S/P/Bld) mL/min/{1.73_m2} Normal >60 [facility] Comment on above: Performed By: #### H EMDF, PT, BMP3M, PHOS3, MG3, CK3 #### [address] #### VD25H #### [facility] [address] [place] [address] GFR/1.73 sq M predicted among non-blacks MDRD vol rate/area (S/P/Bld) mL/min/{1.73_m2} Normal >60 [facility] Comment on above: Result Comment: Sour ce- MDRD equation with creatinine calibration to IDMS(NKDEP) eGFR not recommended for drug dose adjustment Performed By: #### H EMDF, PT, BMP3M, PHOS3, MG3, CK3 #### [address] [address] #### VD25H #### [facility] [address] [place] [address] Urea nitrogen mass conc 30 mg/dL High 7-20 [facility] Comment on above: Performed By: #### H EMDF, PT, BMP3M, PHOS3, MG3, CK3 #### [facility] [address] [facility] #### VD25H #### [facility] [address] [place] [address] Chloride molar conc 95 mmol/L Low 98-107 [facility] Comment on above: Performed By: #### H EMDF, PT, BMP3M, PHOS3, MG3, CK3 #### [facility] [address] [facility], [place] #### VD25H #### [facility] [address] [place] [address] Potassium molar conc 3.3 mmol/L Low 3.5-5.1 [facility] Comment on above: Performed By: #### H EMDF, PT, BMP3M, PHOS3, MG3, CK3 #### [facility] [address] [facility], [place] #### VD25H #### [facility] [address] [place] [address] Sodium molar conc 141 mmol/L Normal 135-145 [facility] Comment on above: Performed By: #### H EMDF, PT, BMP3M, PHOS3, MG3, CK3 #### [facility] [address] [facility], [place] #### VD25H #### [facility] [address] [place] [address] CR Chest Portableon 07-30-19 19 CR Chest Portable Patient Name: KATHYA HOOPER Diagnostic Radiology Exam Date/Time 07/29/2018 07:01:44 EDT Exam CR Chest Portable Ordering Physician MARIA EUGENIA PEREZ Accession Number [id number] CPT4 Codes 94140 () Reason For Exam ETT placement Report [...] Transcribed Date and Time: 07/29/2018 9:04 [facility],Bedside[facility] 07-29-2018 Glucose mass conc 124 mg/dL High 70-100 [facility] Comment on above: Result Comment: Test performed by glucose meter. Results may be 10%-15% lower than serum/plasma values. (CLIA ID [id number]) Performed By: #### H EMDF, PT, BMP3M, PHOS3, MG3, CK3 #### [employer] [address] [place] [address] #### VD25H #### [employer] [address] [place] [address] Glucose mass conc 175 mg/dL High 70-100 [facility] [employer] [facility] Comment on above: Result Comment: Test performed by glucose meter. Results may be 10%-15% lower than serum/plasma values. (CLIA ID [id number]) Performed By: #### H EMDF, PT, BMP3M, PHOS3, MG3, CK3 #### [employer] [address] [place] [address] #### VD25H #### [employer] [address] [place] [address] Glucose mass conc 138 mg/dL High 70-100 [facility] [employer] Comment on above: Result Comment: Test performed by glucose meter. Results may be 10%-15% lower than serum/plasma values. (CLIA ID [id number]) Performed By: #### H EMDF, PT, BMP3M, PHOS3, MG3, CK3 #### [address] #### VD25H #### [facility] [address] [place] [address] Glucose mass conc 147 mg/dL High 70-100 [facility] Comment on above: Result Comment: Test performed by glucose meter. Results may be 10%-15% lower than serum/plasma values. (CLIA ID [id number]) Performed By: #### H EMDF, PT, BMP3M, PHOS3, MG3, CK3 #### [address] #### VD25H #### [place] [address] [facility] [place] [address] Hemogram w/ Autodiffon 07-29 Erythrocyte distribution width Ratio (RBC) 13.8 % Normal 11.5-14.5 [facility] Comment on above: Performed By: #### H EMDF, PT, BMP3M, PHOS3, MG3, CK3 #### [address] #### VD25H #### [facility] [address] [place] [address] Hematocrit Volume Fraction (Bld) 32.9 % Low 40.0-52.0 [facility] Comment on above: Performed By: #### H EMDF, PT, BMP3M, PHOS3, MG3, CK3 #### [place] [address] [place], [place] #### VD25H #### [facility] [address] [place] [address] Hemoglobin mass conc (Bld) 11.0 g/dL Low 13.0-18.0 [facility] Comment on above: Performed By: #### H EMDF, PT, BMP3M, PHOS3, MG3, CK3 #### [address] #### VD25H #### [facility] [address] [place] [address] MCH Entitic mass (RBC) 29.0 pg Normal 26.0-34.0 [facility] Comment on above: Performed By: #### H EMDF, PT, BMP3M, PHOS3, MG3, CK3 #### [facility] [address] [place], [place] #### VD25H #### [facility] [address] [place] [address] MCHC mass conc (RBC) 33.6 % Normal 32.0-36.0 [facility] Comment on above: Performed By: #### H EMDF, PT, BMP3M, PHOS3, MG3, CK3 #### [address] [place], [place] #### VD25H #### [facility] [address] [place] [address] MCV Entitic volume (RBC) 86.3 fL Normal 80.0-98.0 [facility] Comment on above: Performed By: #### H EMDF, PT, BMP3M, PHOS3, MG3, CK3 #### [address] #### VD25H #### [facility] [address] [place] [address] Platelet mean volume Entitic volume (Bld) 8.1 fL Normal 7.4-10.4 [facility] Comment on above: Performed By: #### H EMDF, PT, BMP3M, PHOS3, MG3, CK3 #### [address] [place], [place] #### VD25H #### [facility] [address] [place] [address] Platelets #/vol (Bld) 501 10*3/uL High 140-440 [facility] Comment on above: Performed By: #### H EMDF, PT, BMP3M, PHOS3, MG3, CK3 #### [address] #### VD25H #### [facility] [address] [place] [address] RBC #/vol (Bld) 3.81 10*6/uL Low 4.40-5.90 [facility] Comment on above: Performed By: #### H EMDF, PT, BMP3M, PHOS3, MG3, CK3 #### [address] #### VD25H #### [facility] [address] [place] [address] WBC #/vol (Bld) 20.8 10*3/uL High 3.6-10.7 [facility] Comment on above: Performed By: #### H EMDF, PT, BMP3M, PHOS3, MG3, CK3 #### [address] #### VD25H #### [place] [address] [place] [address] Magnesiumon 07-29-2018 Magnesium mass conc 2.5 mg/dL High 1.6-2.3 [facility] Comment on above: Performed By: #### H EMDF, PT, BMP3M, PHOS3, MG3, CK3 #### [address] #### VD25H #### [place] [address] [place] [address] Manual Diffon 07-29-2018 Abs Neutrophile Cnt 17.3 10*3/uL High 2.2-8.2 [facility] Comment on above: Performed By: #### H EMDF, PT, BMP3M, PHOS3, MG3, CK3 #### [address] #### VD25H #### [place] [address] [place] [address] Bands 1 % Normal 0-3 [facility] Comment on above: Performed By: #### H EMDF, PT, BMP3M, PHOS3, MG3, CK3 #### [address] #### VD25H #### [facility] [address] [place] [address] Eosinophils #/vol (Bld) 0.6 10*3/uL High 0.0-0.5 [facility] Comment on above: Performed By: #### H EMDF, PT, BMP3M, PHOS3, MG3, CK3 #### [facility] [address] [place] #### VD25H #### [facility] [address] [place] [address] Eosinophils/100 WBC (Bld) 3 % Normal 1-6 [facility] Comment on above: Performed By: #### H EMDF, PT, BMP3M, PHOS3, MG3, CK3 #### [address] #### VD25H #### [facility] [address] [place] [address] Lymphocytes #/vol (Bld) 2.3 10*3/uL Normal 1.1-4.5 [facility] Comment on above: Performed By: #### H EMDF, PT, BMP3M, PHOS3, MG3, CK3 #### [address] #### VD25H #### [facility] [address] [place] [address] Lymphocytes/100 WBC (Bld) 11 % Low 20-40 [facility] Comment on above: Performed By: #### H EMDF, PT, BMP3M, PHOS3, MG3, CK3 #### [address] #### VD25H #### [facility] [address] [place] [address] Metamyelocytes 1 % Abnormal <1 [facility] Comment on above: Performed By: #### H EMDF, PT, BMP3M, PHOS3, MG3, CK3 #### [address] #### VD25H #### [facility] [address] [place] [address] Monocytes #/vol (Bld) 0.4 10*3/uL Normal 0.2-1.1 [facility] Comment on above: Performed By: #### H EMDF, PT, BMP3M, PHOS3, MG3, CK3 #### [place] [address] [place], [place] #### VD25H #### [facility] [address] [place] [address] Monocytes/100 WBC (Bld) 2 % Normal 2-10 [facility] Comment on above: Performed By: #### H EMDF, PT, BMP3M, PHOS3, MG3, CK3 #### [address] [place], [place] #### VD25H #### [facility] [address] [place] [address] RBC morphology finding Nom (Bld) See Prev Normal [facility] Comment on above: Performed By: #### H EMDF, PT, BMP3M, PHOS3, MG3, CK3 #### [place] [address] [address] [place], [place] #### VD25H #### [facility] [address] [place] [address] Seg Neutrophils 82 % High 40-80 [facility] Comment on above: Performed By: #### H EMDF, PT, BMP3M, PHOS3, MG3, CK3 #### [place] [address] [place], [place] #### VD25H #### [facility] [address] [place] [address] Abs Baso Cnt 0.0 10*3/uL Normal 0.0-0.2 [facility] Comment on above: Performed By: #### H EMDF, PT, BMP3M, PHOS3, MG3, CK3 #### [address] [place] #### VD25H #### [facility] [address] [place] [address] Basophils/100 WBC (Bld) 0 % Normal 0-2 [facility] Comment on above: Performed By: #### H EMDF, PT, BMP3M, PHOS3, MG3, CK3 #### [address] #### VD25H #### [facility] [address] [place] [address] Cells counted 100 Normal [facility] Comment on above: Performed By: #### H EMDF, PT, BMP3M, PHOS3, MG3, CK3 #### [address] #### VD25H #### [place] [address] [place] [address] Phosphoruson 07-29-2018 Phosphate mass conc 4.2 mg/dL Normal 2.5-4.5 [facility] Comment on above: Performed By: #### H EMDF, PT, BMP3M, PHOS3, MG3, CK3 #### [address] #### VD25H #### [address] [place] [address] Procalcitoninon 07-29-2018 Protein mass conc 0.11 ng/mL Abnormal <0.10 [facility] Comment on above: Performed By: #### H EMDF, PT, BMP3M, PHOS3, MG3, CK3 #### [address] #### VD25H #### [facility] [address] [place] [address] Interpretation See Below Normal [facility] Comment on above: Result Comment: PCT <0.50 = Low risk of severe sepsis and/or septic shock. PCT >2.00 = High risk of severe sepsis and/or septic shock. Performed By: #### H EMDF, PT, BMP3M, PHOS3, MG3, CK3 #### [place] [address] [place], [place] #### VD25H #### [facility] [address] [place] [address] Vancomycin Troughon 07-30-19 19 Vancomycin Trough 12.2 ug/mL Low 15.0-20.0 [facility] Comment on above: Result Comment: . Performed By: #### H EMDF, PT, BMP3M, PHOS3, MG3, CK3 #### [place] [address] [address] [place], [place] #### VD25H #### [facility] [address] [place] [address] Basic Metabolic Panelon 07-01 Calcium mass conc 8.6 mg/dL Normal 8.4-10.4 [facility] Comment on above: Performed By: #### H EMDF, PT, BMP3M, PHOS3, MG3, CK3 #### [address] #### VD25H #### [facility] [address] [place] [address] Glucose mass conc 158 mg/dL High 70-100 [facility] Comment on above: Performed By: #### H EMDF, PT, BMP3M, PHOS3, MG3, CK3 #### [address] #### VD25H #### [facility] [address] [place] [address] Urea nitrogen mass conc 29 mg/dL High 7-20 [facility] Comment on above: Performed By: #### H EMDF, PT, BMP3M, PHOS3, MG3, CK3 #### [address] #### VD25H #### [facility] [address] [place] [address] Anion gap molar conc 9 Normal [facility] Comment on above: Performed By: #### H EMDF, PT, BMP3M, PHOS3, MG3, CK3 #### [address] #### VD25H #### [facility] [address] [place] [address] CO2 molar conc 32 mmol/L High 22-30 [facility] Comment on above: Performed By: #### H EMDF, PT, BMP3M, PHOS3, MG3, CK3 #### [address] #### VD25H #### [facility] [address] [place] [place] [address] Creatinine mass conc 0.61 mg/dL Normal 0.52-1.25 [facility] Comment on above: Performed By: #### H EMDF, PT, BMP3M, PHOS3, MG3, CK3 #### [address] #### VD25H #### [place] [address] [place] [address] GFR/1.73 sq M predicted among blacks MDRD vol rate/area (S/P/Bld) mL/min/{1.73_m2} Normal >60 [facility] Comment on above: Performed By: #### H EMDF, PT, BMP3M, PHOS3, MG3, CK3 #### [address] #### VD25H #### [place] [address] [place] [address] GFR/1.73 sq M predicted among non-blacks MDRD vol rate/area (S/P/Bld) mL/min/{1.73_m2} Normal >60 [facility] Comment on above: Result Comment: Sour ce- MDRD equation with creatinine calibration to IDMS(NKDEP) eGFR not recommended for drug dose adjustment Performed By: #### H EMDF, PT, BMP3M, PHOS3, MG3, CK3 #### [address] #### VD25H #### [facility] [address] [place] [address] Potassium molar conc 3.6 mmol/L Normal 3.5-5.1 [facility] Comment on above: Performed By: #### H EMDF, PT, BMP3M, PHOS3, MG3, CK3 #### [facility] [address] [place] [address] #### VD25H #### [facility] [address] [place] [address] Chloride molar conc 100 mmol/L Normal 98-107 [facility] Comment on above: Performed By: #### H EMDF, PT, BMP3M, PHOS3, MG3, CK3 #### [address] [address] #### VD25H #### [facility] [address] [place] [address] Sodium molar conc 141 mmol/L Normal 135-145 [facility] Comment on above: Performed By: #### H EMDF, PT, BMP3M, PHOS3, MG3, CK3 #### [address] [address] #### VD25H #### [facility] [address] [place] [address] CR Chest Portableon 07-29-19 19 CR Chest Portable Patient Name: KATHYA HOOPER Diagnostic Radiology Exam Date/Time 07/28/2018 07:09:40 EDT Exam CR Chest Portable Ordering Physician MARIA EUGENIA PEREZ Accession Number [id number] CPT4 Codes 77471 () Reason For Exam ETT placement Report [...] Transcribed Date and Time: 07/28/2018 7:16 Normal [facility] Glucose,Bedsideon 07-28-2018 Glucose mass conc 149 mg/dL High 70-100 [facility] Comment on above: Result Comment: Test performed by glucose meter. Results may be 10%-15% lower than serum/plasma values. (CLIA ID [id number]) Performed By: #### H EMDF, PT, BMP3M, PHOS3, MG3, CK3 #### [facility] [place] [address] [place], [place] #### VD25H #### [facility] [address] [place] [address] Glucose mass conc 142 mg/dL High 70-100 [facility] [employer] [facility] Comment on above: Result Comment: Test performed by glucose meter. Results may be 10%-15% lower than serum/plasma values. (CLIA ID [id number]) Performed By: #### H EMDF, PT, BMP3M, PHOS3, MG3, CK3 #### [facility] [address] [place], [place] #### VD25H #### [facility] [address] [place] [address] Hemogram w/ Autodiffon 07-28 Erythrocyte distribution width Ratio (RBC) 13.8 % Normal 11.5-14.5 [facility] Comment on above: Performed By: #### H EMDF, PT, BMP3M, PHOS3, MG3, CK3 #### [facility] [address] [place], [place] #### VD25H #### [facility] [address] [place] [address] Hematocrit Volume Fraction (Bld) 33.0 % Low 40.0-52.0 [facility] Comment on above: Performed By: #### H EMDF, PT, BMP3M, PHOS3, MG3, CK3 #### [address] #### VD25H #### [facility] [address] [place] [address] Hemoglobin mass conc (Bld) 11.0 g/dL Low 13.0-18.0 [facility] Comment on above: Performed By: #### H EMDF, PT, BMP3M, PHOS3, MG3, CK3 #### [address] #### VD25H #### [facility] [address] [facility] [place] [address] MCH Entitic mass (RBC) 28.7 pg Normal 26.0-34.0 [facility] Comment on above: Performed By: #### H EMDF, PT, BMP3M, PHOS3, MG3, CK3 #### [address] #### VD25H #### [facility] [address] [place] [place] [address] MCHC mass conc (RBC) 33.4 % Normal 32.0-36.0 [facility] Comment on above: Performed By: #### H EMDF, PT, BMP3M, PHOS3, MG3, CK3 #### [address] #### VD25H #### [facility] [address] [facility] [place] [address] MCV Entitic volume (RBC) 86.0 fL Normal 80.0-98.0 [facility] Comment on above: Performed By: #### H EMDF, PT, BMP3M, PHOS3, MG3, CK3 #### [address] #### VD25H #### [facility] [address] [place] [address] Platelet mean volume Entitic volume (Bld) 8.4 fL Normal 7.4-10.4 [facility] Comment on above: Performed By: #### H EMDF, PT, BMP3M, PHOS3, MG3, CK3 #### [address] [place], [place] #### VD25H #### [facility] [address] [place] [address] Platelets #/vol (Bld) 477 10*3/uL High 140-440 [facility] Comment on above: Performed By: #### H EMDF, PT, BMP3M, PHOS3, MG3, CK3 #### [address] #### VD25H #### [facility] [address] [place] [address] RBC #/vol (Bld) 3.84 10*6/uL Low 4.40-5.90 [facility] Comment on above: Performed By: #### H EMDF, PT, BMP3M, PHOS3, MG3, CK3 #### [address] #### VD25H #### [facility] [address] [facility] [place] [address] WBC #/vol (Bld) 18.1 10*3/uL High 3.6-10.7 [facility] Comment on above: Performed By: #### H EMDF, PT, BMP3M, PHOS3, MG3, CK3 #### [address] #### VD25H #### [facility] [address] [facility] [place] [address] Magnesiumon 07-28-2018 Magnesium mass conc 2.4 mg/dL High 1.6-2.3 [facility] Comment on above: Performed By: #### H EMDF, PT, BMP3M, PHOS3, MG3, CK3 #### [address] #### VD25H #### [facility] [address] [place] [address] Manual Diffon 07-28-2018 Abs Neutrophile Cnt 14.8 10*3/uL High 2.2-8.2 [facility] Comment on above: Performed By: #### H EMDF, PT, BMP3M, PHOS3, MG3, CK3 #### [place] [address] [address] [place], [place] #### VD25H #### [facility] [address] [place] [address] Anisocytosis Ql (Bld) Slight Normal [facility] Comment on above: Performed By: #### H EMDF, PT, BMP3M, PHOS3, MG3, CK3 #### [place] [address] [place], [place] #### VD25H #### [place] [address] [place] [address] Hypochromia Slight Normal [facility] Comment on above: Performed By: #### H EMDF, PT, BMP3M, PHOS3, MG3, CK3 #### [place] [address] [place] #### VD25H #### [place] [address] [place] [address] Lymphocytes #/vol (Bld) 1.3 10*3/uL Normal 1.1-4.5 [facility] Comment on above: Performed By: #### H EMDF, PT, BMP3M, PHOS3, MG3, CK3 #### [address] [place], [place] #### VD25H #### [facility] [address] [place] [address] Lymphocytes/100 WBC (Bld) 7 % Low 20-40 [facility] Comment on above: Performed By: #### H EMDF, PT, BMP3M, PHOS3, MG3, CK3 #### [place] [address] [place], [place] #### VD25H #### [place] [address] [place] [address] Microcytosis Slight Normal [facility] Comment on above: Performed By: #### H EMDF, PT, BMP3M, PHOS3, MG3, CK3 #### [place] [address] [place] #### VD25H #### [facility] [address] [place] [address] Monocytes #/vol (Bld) 2.0 10*3/uL High 0.2-1.1 [facility] Comment on above: Performed By: #### H EMDF, PT, BMP3M, PHOS3, MG3, CK3 #### [address] #### VD25H #### [place] [address] [place] [address] Monocytes/100 WBC (Bld) 11 % High 2-10 [facility] Comment on above: Performed By: #### H EMDF, PT, BMP3M, PHOS3, MG3, CK3 #### [address] #### VD25H #### [place] [address] [place] [address] RBC morphology finding Nom (Bld) ABNORMAL Normal [facility] Comment on above: Performed By: #### H EMDF, PT, BMP3M, PHOS3, MG3, CK3 #### [address] #### VD25H #### [place] [address] [place] [address] Seg Neutrophils 82 % High 40-80 [facility] Comment on above: Performed By: #### H EMDF, PT, BMP3M, PHOS3, MG3, CK3 #### [address] #### VD25H #### [place] [address] [place] [address] Abs Baso Cnt 0.0 10*3/uL Normal 0.0-0.2 [facility] Comment on above: Performed By: #### H EMDF, PT, BMP3M, PHOS3, MG3, CK3 #### [facility] [address] [place], [place] #### VD25H #### [facility] [address] [place] [address] Bands 0 % Normal 0-3 [facility] Comment on above: Performed By: #### H EMDF, PT, BMP3M, PHOS3, MG3, CK3 #### [facility] [address] [place] #### VD25H #### [facility] [address] [place] [address] Basophils/100 WBC (Bld) 0 % Normal 0-2 [facility] Comment on above: Performed By: #### H EMDF, PT, BMP3M, PHOS3, MG3, CK3 #### [place] [address] [place], [place] #### VD25H #### [facility] [address] [place] [address] Cells counted 100 Normal [facility] Comment on above: Performed By: #### H EMDF, PT, BMP3M, PHOS3, MG3, CK3 #### [place] [address] [place] #### VD25H #### [facility] [address] [place] [address] Eosinophils #/vol (Bld) 0.0 10*3/uL Normal 0.0-0.5 [facility] Comment on above: Performed By: #### H EMDF, PT, BMP3M, PHOS3, MG3, CK3 #### [place] [address] [place] #### VD25H #### [facility] [address] [place] [address] Eosinophils/100 WBC (Bld) 0 % Low 1-6 [facility] Comment on above: Performed By: #### H EMDF, PT, BMP3M, PHOS3, MG3, CK3 #### [address] #### VD25H #### [facility] [address] [place] [address] Phosphoruson 07-28-2018 Phosphate mass conc 4.4 mg/dL Normal 2.5-4.5 [facility] Comment on above: Performed By: #### H EMDF, PT, BMP3M, PHOS3, MG3, CK3 #### [address] #### VD25H #### [facility] [address] [place] [address] Vancomycin Troughon 07-29-19 19 Vancomycin Trough 12.9 ug/mL Low 15.0-20.0 [facility] Comment on above: Result Comment: . Performed By: #### H EMDF, PT, BMP3M, PHOS3, MG3, CK3 #### [address] #### VD25H #### [facility] [address] [place] [address] Arterial Blood Gaseson 07-27 CO2 molar conc 28.4 mmol/L High 23.0-27.0 [facility] Comment on above: Performed By: #### H EMDF, PT, BMP3M, PHOS3, MG3, CK3 #### [address] #### VD25H #### [facility] [address] [place] [place] [address] HCO3 molar conc (Bld) 27.2 mmol/L High 21.0-25.0 [facility] Comment on above: Performed By: #### H EMDF, PT, BMP3M, PHOS3, MG3, CK3 #### [address] #### VD25H #### [facility] [address] [place] [address] Hemoglobin mass conc (Bld) 11.7 g/dL Normal ScreenOnly [facility] Comment on above: Performed By: #### H EMDF, PT, BMP3M, PHOS3, MG3, CK3 #### [facility] [address] [place], [place] #### VD25H #### [facility] [address] [place] [address] Oxygen ppres (Bld) 91.3 mm[Hg] Normal 80.0-100.0 [facility] Comment on above: Performed By: #### H EMDF, PT, BMP3M, PHOS3, MG3, CK3 #### [address] #### VD25H #### [facility] [address] [place] [address] Oxygen saturation in Blood 96.9 % Normal 95.0-100.0 [facility] Comment on above: Performed By: #### H EMDF, PT, BMP3M, PHOS3, MG3, CK3 #### [place] [address] [place] #### VD25H #### [facility] [address] [place] [address] pCO2 39.0 mm[Hg] Normal 35.0-45.0 [facility] Comment on above: Performed By: #### H EMDF, PT, BMP3M, PHOS3, MG3, CK3 #### [place] [address] [place] #### VD25H #### [facility] [address] [place] [address] pH (Bld) 7.461 High 7.350-7.450 [facility] Comment on above: Performed By: #### H EMDF, PT, BMP3M, PHOS3, MG3, CK3 #### [address] #### VD25H #### [facility] [address] [place] [address] Std Base Excess 3.2 mmol/L High -3.0-3.0 [facility] Comment on above: Performed By: #### H EMDF, PT, BMP3M, PHOS3, MG3, CK3 #### [facility] [address] [place] #### VD25H #### [facility] [address] [place] [address] FIO2 No data Normal [facility] Comment on above: Performed By: #### H EMDF, PT, BMP3M, PHOS3, MG3, CK3 #### [place] [address] [place] #### VD25H #### [facility] [address] [place] [address] Basic Metabolic Panelon 03-2 Anion gap molar conc 12 Normal [facility] Comment on above: Performed By: #### H EMDF, PT, BMP3M, PHOS3, MG3, CK3 #### [place] [address] [place] #### VD25H #### [facility] [address] [place] [address] Calcium mass conc 8.3 mg/dL Low 8.4-10.4 [facility] Comment on above: Performed By: #### H EMDF, PT, BMP3M, PHOS3, MG3, CK3 #### [place] [address] [place] #### VD25H #### [facility] [address] [place] [address] CO2 molar conc 28 mmol/L Normal 22-30 [facility] Comment on above: Performed By: #### H EMDF, PT, BMP3M, PHOS3, MG3, CK3 #### [address] [place], [place] #### VD25H #### [facility] [address] [place] [address] Glucose mass conc 156 mg/dL High 70-100 [facility] Comment on above: Performed By: #### H EMDF, PT, BMP3M, PHOS3, MG3, CK3 #### [address] [address] #### VD25H #### [facility] [address] [place] [address] Urea nitrogen mass conc 21 mg/dL High 7-20 [facility] Comment on above: Performed By: #### H EMDF, PT, BMP3M, PHOS3, MG3, CK3 #### [address] [address] #### VD25H #### [facility] [address] [place] [address] Creatinine mass conc 0.53 mg/dL Normal 0.52-1.25 [facility] Comment on above: Performed By: #### H EMDF, PT, BMP3M, PHOS3, MG3, CK3 #### [address] #### VD25H #### [facility] [address] [address] GFR/1.73 sq M predicted among blacks MDRD vol rate/area (S/P/Bld) mL/min/{1.73_m2} Normal >60 [facility] Comment on above: Performed By: #### H EMDF, PT, BMP3M, PHOS3, MG3, CK3 #### [address] [address] #### VD25H #### [facility] [address] [place] [address] GFR/1.73 sq M predicted among non-blacks MDRD vol rate/area (S/P/Bld) mL/min/{1.73_m2} Normal >60 [facility] Comment on above: Result Comment: Sour ce- MDRD equation with creatinine calibration to IDMS(NKDEP) eGFR not recommended for drug dose adjustment Performed By: #### H EMDF, PT, BMP3M, PHOS3, MG3, CK3 #### [facility] [address] [place] [address] #### VD25H #### [facility] [address] [place] [address] Potassium molar conc 3.2 mmol/L Low 3.5-5.1 [facility] Comment on above: Performed By: #### H EMDF, PT, BMP3M, PHOS3, MG3, CK3 #### [facility] [address] [facility] [place] [address] #### VD25H #### [facility] [address] [place] [address] Chloride molar conc 99 mmol/L Normal 98-107 [facility] Comment on above: Performed By: #### H EMDF, PT, BMP3M, PHOS3, MG3, CK3 #### [facility] [address] [facility] [place] [address] #### VD25H #### [facility] [address] [place] [address] Sodium molar conc 139 mmol/L Normal 135-145 [facility] Comment on above: Performed By: #### H EMDF, PT, BMP3M, PHOS3, MG3, CK3 #### [facility] [address] [facility] [place] [address] #### VD25H #### [facility] [facility] [address] [place] [address] CR Chest Portableon 07-28-19 19 CR Chest Portable Patient Name: KATHYA HOOPER Diagnostic Radiology Exam Date/Time 07/27/2018 07:08:59 EDT Exam CR Chest Portable Ordering Physician MARIA EUGENIA PEREZ Accession Number [id number] CPT4 Codes 23820 () Reason For Exam ETT placement Report [...] Transcribed Date and Time: 07/27/2018 8:02 Normal [facility] Glucose,Bedsideon 07-27-2018 Glucose mass conc 151 mg/dL High 70-100 [facility] Comment on above: Result Comment: Test performed by glucose meter. Results may be 10%-15% lower than serum/plasma values. (CLIA ID [id number]) Performed By: #### H EMDF, PT, BMP3M, PHOS3, MG3, CK3 #### [facility] [address] [place], [place] #### VD25H #### [facility] [address] [place] [address] Glucose mass conc 131 mg/dL High 70-100 [facility] Comment on above: Result Comment: Test performed by glucose meter. Results may be 10%-15% lower than serum/plasma values. (CLIA ID [id number]) Performed By: #### H EMDF, PT, BMP3M, PHOS3, MG3, CK3 #### [facility] [address] [place], [place] #### VD25H #### [facility] [address] [place] [address] Glucose mass conc 123 mg/dL High 70-100 [facility] Comment on above: Result Comment: Test performed by glucose meter. Results may be 10%-15% lower than serum/plasma values. (CLIA ID [id number]) Performed By: #### H EMDF, PT, BMP3M, PHOS3, MG3, CK3 #### [facility] [address] [place], [place] #### VD25H #### [facility] [address] [place] [address] Glucose mass conc 133 mg/dL High 70-100 [facility] Comment on above: Result Comment: Test performed by glucose meter. Results may be 10%-15% lower than serum/plasma values. (CLIA ID [id number]) Performed By: #### H EMDF, PT, BMP3M, PHOS3, MG3, CK3 #### [address] #### VD25H #### [place] [address] [place] [address] Hemogram w/ Autodiffon 07-27 Erythrocyte distribution width Ratio (RBC) 13.5 % Normal 11.5-14.5 [facility] Comment on above: Performed By: #### H EMDF, PT, BMP3M, PHOS3, MG3, CK3 #### [address] #### VD25H #### [place] [address] [place] [address] Hematocrit Volume Fraction (Bld) 32.5 % Low 40.0-52.0 [facility] Comment on above: Performed By: #### H EMDF, PT, BMP3M, PHOS3, MG3, CK3 #### [address] #### VD25H #### [address] [place] [address] Hemoglobin mass conc (Bld) 11.1 g/dL Low 13.0-18.0 [facility] Comment on above: Performed By: #### H EMDF, PT, BMP3M, PHOS3, MG3, CK3 #### [address] #### VD25H #### [place] [address] [place] [address] MCH Entitic mass (RBC) 29.2 pg Normal 26.0-34.0 [facility] Comment on above: Performed By: #### H EMDF, PT, BMP3M, PHOS3, MG3, CK3 #### [address] [place], [place] #### VD25H #### [facility] [address] [place] [address] MCHC mass conc (RBC) 34.1 % Normal 32.0-36.0 [facility] Comment on above: Performed By: #### H EMDF, PT, BMP3M, PHOS3, MG3, CK3 #### [address] #### VD25H #### [facility] [address] [place] [address] MCV Entitic volume (RBC) 85.7 fL Normal 80.0-98.0 [facility] Comment on above: Performed By: #### H EMDF, PT, BMP3M, PHOS3, MG3, CK3 #### [address] #### VD25H #### [facility] [address] [place] [address] Platelet mean volume Entitic volume (Bld) 7.9 fL Normal 7.4-10.4 [facility] Comment on above: Performed By: #### H EMDF, PT, BMP3M, PHOS3, MG3, CK3 #### [address] #### VD25H #### [facility] [address] [place] [address] Platelets #/vol (Bld) 466 10*3/uL High 140-440 [facility] Comment on above: Performed By: #### H EMDF, PT, BMP3M, PHOS3, MG3, CK3 #### [address] #### VD25H #### [place] [address] [place] [address] RBC #/vol (Bld) 3.79 10*6/uL Low 4.40-5.90 [facility] Comment on above: Performed By: #### H EMDF, PT, BMP3M, PHOS3, MG3, CK3 #### [place] [address] [place], [place] #### VD25H #### [facility] [address] [place] [address] WBC #/vol (Bld) 18.7 10*3/uL High 3.6-10.7 [facility] Comment on above: Performed By: #### H EMDF, PT, BMP3M, PHOS3, MG3, CK3 #### [address] #### VD25H #### [place] [address] [place] [address] Magnesiumon 07-27-2018 Magnesium mass conc 2.1 mg/dL Normal 1.6-2.3 [facility] Comment on above: Performed By: #### H EMDF, PT, BMP3M, PHOS3, MG3, CK3 #### [address] #### VD25H #### [place] [address] [place] [address] Manual Diffon 07-27-2018 RBC morphology finding Nom (Bld) Normal Normal [facility] Comment on above: Performed By: #### H EMDF, PT, BMP3M, PHOS3, MG3, CK3 #### [address] [place], [place] #### VD25H #### [facility] [address] [place] [address] Abs Neutrophile Cnt 14.2 10*3/uL High 2.2-8.2 [facility] Comment on above: Performed By: #### H EMDF, PT, BMP3M, PHOS3, MG3, CK3 #### [address] #### VD25H #### [facility] [address] [place] [address] Atypical Lymphocytes 2 % Abnormal <1 [facility] Comment on above: Performed By: #### H EMDF, PT, BMP3M, PHOS3, MG3, CK3 #### [facility] [address] [place], [place] #### VD25H #### [facility] [address] [place] [address] Bands 5 % High 0-3 [facility] Comment on above: Performed By: #### H EMDF, PT, BMP3M, PHOS3, MG3, CK3 #### [facility] [address] [place], [place] #### VD25H #### [facility] [address] [place] [address] Eosinophils #/vol (Bld) 0.6 10*3/uL High 0.0-0.5 [facility] Comment on above: Performed By: #### H EMDF, PT, BMP3M, PHOS3, MG3, CK3 #### [place] [address] [address] [place], [place] #### VD25H #### [facility] [address] [place] [address] Eosinophils/100 WBC (Bld) 3 % Normal 1-6 [facility] Comment on above: Performed By: #### H EMDF, PT, BMP3M, PHOS3, MG3, CK3 #### [facility] [address] [place], [place] #### VD25H #### [facility] [address] [place] [address] Lymphocytes #/vol (Bld) 2.1 10*3/uL Normal 1.1-4.5 [facility] Comment on above: Performed By: #### H EMDF, PT, BMP3M, PHOS3, MG3, CK3 #### [address] #### VD25H #### [facility] [address] [place] [address] Lymphocytes/100 WBC (Bld) 11 % Low 20-40 [facility] Comment on above: Performed By: #### H EMDF, PT, BMP3M, PHOS3, MG3, CK3 #### [facility] [address] [place], [place] #### VD25H #### [facility] [address] [place] [address] Monocytes #/vol (Bld) 1.5 10*3/uL High 0.2-1.1 [facility] Comment on above: Performed By: #### H EMDF, PT, BMP3M, PHOS3, MG3, CK3 #### [place] [address] [address] [place], [place] #### VD25H #### [facility] [address] [place] [address] Monocytes/100 WBC (Bld) 8 % Normal 2-10 [facility] Comment on above: Performed By: #### H EMDF, PT, BMP3M, PHOS3, MG3, CK3 #### [place] [address] [address] [place], [place] #### VD25H #### [facility] [address] [place] [address] NRBC 1 /100{WBCs} High -1-0 [facility] Comment on above: Result Comment: Newb orn (<60 days) 1-10 Adult <1 Performed By: #### H EMDF, PT, BMP3M, PHOS3, MG3, CK3 #### [facility] [address] [place], [place] #### VD25H #### [facility] [address] [place] [address] Seg Neutrophils 71 % Normal 40-80 [facility] Comment on above: Performed By: #### H EMDF, PT, BMP3M, PHOS3, MG3, CK3 #### [facility] [address] [place], [place] #### VD25H #### [facility] [address] [place] [address] Abs Baso Cnt 0.0 10*3/uL Normal 0.0-0.2 [facility] Comment on above: Performed By: #### H EMDF, PT, BMP3M, PHOS3, MG3, CK3 #### [facility] [address] [place], [place] #### VD25H #### [facility] [address] [place] [address] Basophils/100 WBC (Bld) 0 % Normal 0-2 [facility] Comment on above: Performed By: #### H EMDF, PT, BMP3M, PHOS3, MG3, CK3 #### [place] [address] [address] [place], [place] #### VD25H #### [facility] [address] [place] [place] [address] Cells counted 100 Normal [facility] Comment on above: Performed By: #### H EMDF, PT, BMP3M, PHOS3, MG3, CK3 #### [facility] [address] [place], [place] #### VD25H #### [facility] [address] [place] [place] [address] Phosphoruson 07-27-2018 Phosphate mass conc 3.0 mg/dL Normal 2.5-4.5 [facility] Comment on above: Performed By: #### H EMDF, PT, BMP3M, PHOS3, MG3, CK3 #### [place] [address] [address] [place], [place] #### VD25H #### [facility] [address] [place] [address] VL Venous Duplex US Lower Ex t Bilateralon 07-27-2018 VL Venous Duplex US Lower Ext Bilateral Patient Name: KATHYA HOOPER Ultrasound Exam Date/Time 07/27/2018 10:56:18 EDT Exam VL Venous Duplex US Lower Ext Bilateral Ordering Physician ETIENNE MARTÍNEZ JULIE Accession Number [id number] CPT4 Codes 86875 () Reason For Exam edema Report [facility] --- Lower Extremity Venous Duplex Report Patient Name: Kathya Hooper : 1955 Study Date: 07/27/2018 W (63yrs) Age: 63 Account: [id number] Gender: M Loc: T209 BP: Ordering: Yesenia Martínez Technologist: Ordering Physician: Yesenia Martínez Internet Marketing Assistant: Mary Man RVT Interpreting Physician: Ricardo Hall MD --- Location: [facility] --- INDICATIONS: Bilateral leg edema. --- [...] performed. The images were obtained using a [employer] E9 vascular ultrasound machine. The study was [...] --+ Electronically signed by: Ricardo Hall MD [id number] Final Dictated: 07/27/2018 12:55 pm Dictating Physician: RICARDO HALL Signed Date and Time: 07/27/2018 12:55 pm Signed by: RICARDO HALL [facility] Basic Metabolic Panelon 06-30 Calcium mass conc 7.9 mg/dL Low 8.4-10.4 [facility] Comment on above: Performed By: #### H EMDF, PT, BMP3M, PHOS3, MG3, CK3 #### [address] [place], [place] #### VD25H #### [facility] [address] [place] [address] Anion gap molar conc 9 Normal [facility] Comment on above: Performed By: #### H EMDF, PT, BMP3M, PHOS3, MG3, CK3 #### [address] #### VD25H #### [facility] [address] [place] [address] CO2 molar conc 24 mmol/L Normal 22-30 [facility] Comment on above: Performed By: #### H EMDF, PT, BMP3M, PHOS3, MG3, CK3 #### [address] #### VD25H #### [facility] [address] [place] [place] [address] Creatinine mass conc 0.54 mg/dL Normal 0.52-1.25 [facility] Comment on above: Performed By: #### H EMDF, PT, BMP3M, PHOS3, MG3, CK3 #### [address] #### VD25H #### [facility] [address] [place] [address] GFR/1.73 sq M predicted among blacks MDRD vol rate/area (S/P/Bld) mL/min/{1.73_m2} Normal >60 [facility] Comment on above: Performed By: #### H EMDF, PT, BMP3M, PHOS3, MG3, CK3 #### [address] #### VD25H #### [facility] [address] [place] [address] GFR/1.73 sq M predicted among non-blacks MDRD vol rate/area (S/P/Bld) mL/min/{1.73_m2} Normal >60 [facility] Comment on above: Result Comment: Sour ce- MDRD equation with creatinine calibration to IDMS(NKDEP) eGFR not recommended for drug dose adjustment Performed By: #### H EMDF, PT, BMP3M, PHOS3, MG3, CK3 #### [facility] [address] [place], [place] #### VD25H #### [facility] [address] [place] [address] Glucose mass conc 166 mg/dL High 70-100 [facility] Comment on above: Performed By: #### H EMDF, PT, BMP3M, PHOS3, MG3, CK3 #### [place] [address] [place], [place] #### VD25H #### [facility] [address] [place] [address] Urea nitrogen mass conc 21 mg/dL High 7-20 [facility] Comment on above: Performed By: #### H EMDF, PT, BMP3M, PHOS3, MG3, CK3 #### [place] [address] [address] [place], [place] #### VD25H #### [facility] [address] [place] [address] Chloride molar conc 107 mmol/L Normal 98-107 [facility] Comment on above: Performed By: #### H EMDF, PT, BMP3M, PHOS3, MG3, CK3 #### [place] [address] [place] #### VD25H #### [facility] [address] [place] [address] Potassium molar conc 3.7 mmol/L Normal 3.5-5.1 [facility] Comment on above: Performed By: #### H EMDF, PT, BMP3M, PHOS3, MG3, CK3 #### [place] [address] [place] [address] #### VD25H #### [facility] [address] [place] [address] Sodium molar conc 140 mmol/L Normal 135-145 [facility] Comment on above: Performed By: #### H EMDF, PT, BMP3M, PHOS3, MG3, CK3 #### [facility] [address] [place], [place] #### VD25H #### [facility] [address] [place] [address] CR Chest Portableon 07-27-19 19 CR Chest Portable Patient Name: KATHYA HOOPER Diagnostic Radiology Exam Date/Time 07/26/2018 06:06:25 EDT Exam CR Chest Portable Ordering Physician MARIA EUGENIA PEREZ Accession Number [id number] CPT4 Codes 95269 () Reason For Exam ETT placement Report [...] Transcribed Date and Time: 07/26/2018 9:15 Normal [facility] Glucose,Bedsideon 07-26-2018 Glucose mass conc 160 mg/dL High 70-100 [facility] [employer] [facility] Comment on above: Result Comment: Test performed by glucose meter. Results may be 10%-15% lower than serum/plasma values. (CLIA ID [id number]) Performed By: #### H EMDF, PT, BMP3M, PHOS3, MG3, CK3 #### [facility] [address] [place], [place] #### VD25H #### [facility] [address] [place] [address] Glucose mass conc 166 mg/dL High 70-100 [facility] Comment on above: Result Comment: Test performed by glucose meter. Results may be 10%-15% lower than serum/plasma values. (CLIA ID [id number]) Performed By: #### H EMDF, PT, BMP3M, PHOS3, MG3, CK3 #### [facility] [address] [place] [address] #### VD25H #### [employer] [address] [place] [address] Glucose mass conc 183 mg/dL High 70-100 [facility] Comment on above: Result Comment: Test performed by glucose meter. Results may be 10%-15% lower than serum/plasma values. (CLIA ID [id number]) Performed By: #### H EMDF, PT, BMP3M, PHOS3, MG3, CK3 #### [facility] [address] [place] [address] #### VD25H #### [employer] [address] [place] [address] Glucose mass conc 151 mg/dL High 70-100 [facility] Comment on above: Result Comment: Test performed by glucose meter. Results may be 10%-15% lower than serum/plasma values. (CLIA ID [id number]) Performed By: #### H EMDF, PT, BMP3M, PHOS3, MG3, CK3 #### [facility] [employer] [address] #### VD25H #### [employer] [facility] [address] [place] [address] Hemogram w/ Autodiffon 07-26 Erythrocyte distribution width Ratio (RBC) 13.7 % Normal 11.5-14.5 [facility] Comment on above: Performed By: #### H EMDF, PT, BMP3M, PHOS3, MG3, CK3 #### [address] #### VD25H #### [facility] [address] [place] [address] Hematocrit Volume Fraction (Bld) 31.1 % Low 40.0-52.0 [facility] Comment on above: Performed By: #### H EMDF, PT, BMP3M, PHOS3, MG3, CK3 #### [address] #### VD25H #### [facility] [address] [place] [address] Hemoglobin mass conc (Bld) 10.6 g/dL Low 13.0-18.0 [facility] Comment on above: Performed By: #### H EMDF, PT, BMP3M, PHOS3, MG3, CK3 #### [address] #### VD25H #### [facility] [address] [place] [address] MCH Entitic mass (RBC) 29.2 pg Normal 26.0-34.0 [facility] Comment on above: Performed By: #### H EMDF, PT, BMP3M, PHOS3, MG3, CK3 #### [address] #### VD25H #### [facility] [address] [place] [address] MCHC mass conc (RBC) 34.0 % Normal 32.0-36.0 [facility] Comment on above: Performed By: #### H EMDF, PT, BMP3M, PHOS3, MG3, CK3 #### [address] #### VD25H #### [facility] [address] [place] [address] MCV Entitic volume (RBC) 86.1 fL Normal 80.0-98.0 [facility] Comment on above: Performed By: #### H EMDF, PT, BMP3M, PHOS3, MG3, CK3 #### [address] [place], [place] #### VD25H #### [facility] [address] [place] [address] Platelet mean volume Entitic volume (Bld) 8.3 fL Normal 7.4-10.4 [facility] Comment on above: Performed By: #### H EMDF, PT, BMP3M, PHOS3, MG3, CK3 #### [address] #### VD25H #### [facility] [address] [place] [address] Platelets #/vol (Bld) 364 10*3/uL Normal 140-440 [facility] Comment on above: Performed By: #### H EMDF, PT, BMP3M, PHOS3, MG3, CK3 #### [address] #### VD25H #### [facility] [address] [place] [address] RBC #/vol (Bld) 3.62 10*6/uL Low 4.40-5.90 [facility] Comment on above: Performed By: #### H EMDF, PT, BMP3M, PHOS3, MG3, CK3 #### [place] [address] [address] [place], [place] #### VD25H #### [facility] [address] [place] [address] WBC #/vol (Bld) 15.2 10*3/uL High 3.6-10.7 [facility] Comment on above: Performed By: #### H EMDF, PT, BMP3M, PHOS3, MG3, CK3 #### [address] #### VD25H #### [facility] [address] [place] [address] Magnesiumon 07-26-2018 Magnesium mass conc 2.0 mg/dL Normal 1.6-2.3 [facility] Comment on above: Performed By: #### H EMDF, PT, BMP3M, PHOS3, MG3, CK3 #### [place] [address] [address] [place], [place] #### VD25H #### [facility] [address] [place] [address] Manual Diffon 07-26-2018 Abs Neutrophile Cnt 12.8 10*3/uL High 2.2-8.2 [facility] Comment on above: Performed By: #### H EMDF, PT, BMP3M, PHOS3, MG3, CK3 #### [address] #### VD25H #### [place] [address] [place] [address] Lymphocytes #/vol (Bld) 1.4 10*3/uL Normal 1.1-4.5 [facility] Comment on above: Performed By: #### H EMDF, PT, BMP3M, PHOS3, MG3, CK3 #### [address] #### VD25H #### [facility] [address] [place] [address] Lymphocytes/100 WBC (Bld) 9 % Low 20-40 [facility] Comment on above: Performed By: #### H EMDF, PT, BMP3M, PHOS3, MG3, CK3 #### [address] #### VD25H #### [facility] [address] [place] [address] Monocytes #/vol (Bld) 1.1 10*3/uL Normal 0.2-1.1 [facility] Comment on above: Performed By: #### H EMDF, PT, BMP3M, PHOS3, MG3, CK3 #### [address] #### VD25H #### [facility] [address] [place] [address] Monocytes/100 WBC (Bld) 7 % Normal 2-10 [facility] Comment on above: Performed By: #### H EMDF, PT, BMP3M, PHOS3, MG3, CK3 #### [facility] [address] [place], [place] #### VD25H #### [facility] [address] [place] [address] RBC morphology finding Nom (Bld) Normal Normal [facility] Comment on above: Performed By: #### H EMDF, PT, BMP3M, PHOS3, MG3, CK3 #### [place] [address] [address] [place], [place] #### VD25H #### [facility] [address] [place] [address] Seg Neutrophils 84 % High 40-80 [facility] Comment on above: Performed By: #### H EMDF, PT, BMP3M, PHOS3, MG3, CK3 #### [place] [address] [address] [place], [place] #### VD25H #### [facility] [address] [place] [address] Abs Baso Cnt 0.0 10*3/uL Normal 0.0-0.2 [facility] Comment on above: Performed By: #### H EMDF, PT, BMP3M, PHOS3, MG3, CK3 #### [facility] [address] [place], [place] #### VD25H #### [facility] [address] [place] [address] Bands 0 % Normal 0-3 [facility] Comment on above: Performed By: #### H EMDF, PT, BMP3M, PHOS3, MG3, CK3 #### [facility] [address] [place], [place] #### VD25H #### [facility] [address] [place] [address] Basophils/100 WBC (Bld) 0 % Normal 0-2 [facility] Comment on above: Performed By: #### H EMDF, PT, BMP3M, PHOS3, MG3, CK3 #### [place] [address] [address] [place], [place] #### VD25H #### [facility] [address] [place] [address] Cells counted 100 Normal [facility] Comment on above: Performed By: #### H EMDF, PT, BMP3M, PHOS3, MG3, CK3 #### [address] #### VD25H #### [facility] [address] [place] [address] Eosinophils #/vol (Bld) 0.0 10*3/uL Normal 0.0-0.5 [facility] Comment on above: Performed By: #### H EMDF, PT, BMP3M, PHOS3, MG3, CK3 #### [address] #### VD25H #### [facility] [address] [place] [address] Eosinophils/100 WBC (Bld) 0 % Low 1-6 [facility] Comment on above: Performed By: #### H EMDF, PT, BMP3M, PHOS3, MG3, CK3 #### [address] #### VD25H #### [facility] [address] [place] [address] Phosphoruson 07-26-2018 Phosphate mass conc 3.1 mg/dL Normal 2.5-4.5 [facility] Comment on above: Performed By: #### H EMDF, PT, BMP3M, PHOS3, MG3, CK3 #### [address] #### VD25H #### [facility] [address] [place] [address] Vancomycin Troughon 07-27-19 19 Vancomycin Trough 8.9 ug/mL Low 15.0-20.0 [facility] Comment on above: Result Comment: . Performed By: #### H EMDF, PT, BMP3M, PHOS3, MG3, CK3 #### [address] #### VD25H #### [facility] [address] [place] [address] Arterial Blood Gaseson 07-25 CO2 molar conc 22.0 mmol/L Low 23.0-27.0 [facility] Comment on above: Performed By: #### H EMDF, PT, BMP3M, PHOS3, MG3, CK3 #### [address] #### VD25H #### [facility] [address] [place] [address] HCO3 molar conc (Bld) 21.1 mmol/L Normal 21.0-25.0 [facility] Comment on above: Performed By: #### H EMDF, PT, BMP3M, PHOS3, MG3, CK3 #### [address] #### VD25H #### [facility] [address] [place] [address] Hemoglobin mass conc (Bld) 10.1 g/dL Normal ScreenOnly [facility] Comment on above: Performed By: #### H EMDF, PT, BMP3M, PHOS3, MG3, CK3 #### [address] #### VD25H #### [facility] [address] [place] [address] Oxygen ppres (Bld) 88.3 mm[Hg] Normal 80.0-100.0 [facility] Comment on above: Performed By: #### H EMDF, PT, BMP3M, PHOS3, MG3, CK3 #### [address] #### VD25H #### [facility] [facility] [address] [place] [address] Oxygen saturation in Blood 96.8 % Normal 95.0-100.0 [facility] Comment on above: Performed By: #### H EMDF, PT, BMP3M, PHOS3, MG3, CK3 #### [facility] [address] [place], [place] #### VD25H #### [facility] [address] [place] [address] pCO2 29.9 mm[Hg] Low 35.0-45.0 [facility] Comment on above: Performed By: #### H EMDF, PT, BMP3M, PHOS3, MG3, CK3 #### [place] [address] [place], [place] #### VD25H #### [facility] [address] [place] [address] pH (Bld) 7.467 High 7.350-7.450 [facility] Comment on above: Performed By: #### H EMDF, PT, BMP3M, PHOS3, MG3, CK3 #### [place] [address] [place], [place] #### VD25H #### [facility] [address] [place] [address] Std Base Excess -1.9 mmol/L Normal -3.0-3.0 [facility] Comment on above: Performed By: #### H EMDF, PT, BMP3M, PHOS3, MG3, CK3 #### [place] [address] [place], [place] #### VD25H #### [facility] [address] [place] [address] FIO2 .30 Normal [facility] Comment on above: Performed By: #### H EMDF, PT, BMP3M, PHOS3, MG3, CK3 #### [place] [address] [place], [place] #### VD25 #### [place] [address] [place] [address] Basic Metabolic Panelon -2 Calcium mass conc 8.1 mg/dL Low 8.4-10.4 [facility] Comment on above: Performed By: #### H EMDF, PT, BMP3M, PHOS3, MG3, CK3 #### [address] #### VD25H #### [place] [address] [place] [address] Anion gap molar conc 8 Normal [facility] Comment on above: Performed By: #### H EMDF, PT, BMP3M, PHOS3, MG3, CK3 #### [address] #### VD25H #### [address] [place] [address] CO2 molar conc 24 mmol/L Normal 22-30 [facility] Comment on above: Performed By: #### H EMDF, PT, BMP3M, PHOS3, MG3, CK3 #### [address] #### VD25H #### [address] [place] [address] Creatinine mass conc 0.55 mg/dL Normal 0.52-1.25 [facility] Comment on above: Performed By: #### H EMDF, PT, BMP3M, PHOS3, MG3, CK3 #### [address] #### VD25H #### [place] [address] [place] [address] GFR/1.73 sq M predicted among blacks MDRD vol rate/area (S/P/Bld) mL/min/{1.73_m2} Normal >60 [facility] Comment on above: Performed By: #### H EMDF, PT, BMP3M, PHOS3, MG3, CK3 #### [address] #### VD25H #### [facility] [address] [place] [address] GFR/1.73 sq M predicted among non-blacks MDRD vol rate/area (S/P/Bld) mL/min/{1.73_m2} Normal >60 [facility] Comment on above: Result Comment: Sour ce- MDRD equation with creatinine calibration to IDMS(NKDEP) eGFR not recommended for drug dose adjustment Performed By: #### H EMDF, PT, BMP3M, PHOS3, MG3, CK3 #### [address] [facility], [place] #### VD25H #### [facility] [address] [place] [address] Glucose mass conc 184 mg/dL High 70-100 [facility] Comment on above: Performed By: #### H EMDF, PT, BMP3M, PHOS3, MG3, CK3 #### [place] [address] [address] [facility], [place] #### VD25H #### [facility] [address] [place] [address] Urea nitrogen mass conc 20 mg/dL Normal 7-20 [facility] Comment on above: Performed By: #### H EMDF, PT, BMP3M, PHOS3, MG3, CK3 #### [address] #### VD25H #### [facility] [address] [place] [address] Chloride molar conc 109 mmol/L High 98-107 [facility] Comment on above: Performed By: #### H EMDF, PT, BMP3M, PHOS3, MG3, CK3 #### [address], [place] #### VD25H #### [facility] [address] [place] [address] Potassium molar conc 4.0 mmol/L Normal 3.5-5.1 [facility] Comment on above: Performed By: #### H EMDF, PT, BMP3M, PHOS3, MG3, CK3 #### [facility] [address] [place] [address] #### VD25H #### [facility] [address] [place] [address] Sodium molar conc 141 mmol/L Normal 135-145 [facility] Comment on above: Performed By: #### H EMDF, PT, BMP3M, PHOS3, MG3, CK3 #### [facility] [address] [place] [address] #### VD25H #### [facility] [address] [place] [address] CR Chest Portableon 07-26-19 19 CR Chest Portable Patient Name: KATHYA HOOPER Diagnostic Radiology Exam Date/Time 07/25/2018 06:39:42 EDT Exam CR Chest Portable Ordering Physician MARIA EUGENIA PEREZ Accession Number [id number] CPT4 Codes 25025 () Reason For Exam ETT placement Report [...] Transcribed Date and Time: 07/25/2018 7:45 Normal [facility] CULTURE URINEon 07-25-2018 CULTURE URINE 1 Organism Klebsiell a pneumoniae >100,000 CFU/ml 1 Organism Antibiotic Result Intrp Amikacin(CHRISTI) <= 2 S Amoxicillin/Clavulani c Acid(CHRISIT) <= 2 S Ampicillin(CHRISTI) R Ampicillin/Sulbactam( CHRISTI) = 8 S Aztreonam(CHRISTI) <= 1 S Cefazolin(CHRISTI) <= 4 S Cefepime(CHRISTI) <= 1 S Ceftriaxone(CHRISTI) <= 1 S Ciprofloxacin(CHRISTI) <= 0.25 S Ertapenem(CHRISTI) <= 0.5 S Gentamicin(CHRISTI) <= 1 S Levofloxacin(CHRISTI) <= 0.12 S Meropenem(CHRISTI) <= 0.25 S Nitrofurantoin(CHRISTI) = 32 S Pip/Tazobactam(CHRISTI) <= 4 S Trimeth/Sulfa(CHRISTI) <= 20 S Normal [employer] [facility] Comment on above: Order Comment: Speci men Source Comment:Urine, clean catch Performed By: #### H EMDF, PT, BMP3M, PHOS3, MG3, CK3 #### [employer] [address] [place] [address] #### VD25H #### [employer] [address] [place] [address] Glucose,Bedsideon 07-25-2018 Glucose mass conc 140 mg/dL High 70-100 [email or web address] [facility] Comment on above: Result Comment: Test performed by glucose meter. Results may be 10%-15% lower than serum/plasma values. (CLIA ID [id number]) Performed By: #### H EMDF, PT, BMP3M, PHOS3, MG3, CK3 #### [employer] [address] [place] [address] #### VD25H #### [facility] [address] [place] [address] Glucose mass conc 158 mg/dL High 70-100 [facility] Comment on above: Result Comment: Test performed by glucose meter. Results may be 10%-15% lower than serum/plasma values. (CLIA ID [id number]) Performed By: #### H EMDF, PT, BMP3M, PHOS3, MG3, CK3 #### [facility] [address] [place] [id number] #### VD25H #### [employer] [facility] [address] [place] [address] Glucose mass conc 172 mg/dL High 70-100 [facility] Comment on above: Result Comment: Test performed by glucose meter. Results may be 10%-15% lower than serum/plasma values. (CLIA ID [id number]) Performed By: #### H EMDF, PT, BMP3M, PHOS3, MG3, CK3 #### [facility] [address] [place] [phone] #### VD25H #### [employer] [facility] [address] [place] [address] Glucose mass conc 169 mg/dL High 70-100 [facility] Comment on above: Result Comment: Test performed by glucose meter. Results may be 10%-15% lower than serum/plasma values. (CLIA ID [id number]) Performed By: #### H EMDF, PT, BMP3M, PHOS3, MG3, CK3 #### [facility] [address] [place] [address] #### VD25H #### [employer] [facility] [address] [place] [address] Glucose mass conc 165 mg/dL High 70-100 [facility] Comment on above: Result Comment: Test performed by glucose meter. Results may be 10%-15% lower than serum/plasma values. (CLIA ID [id number]) Performed By: #### H EMDF, PT, BMP3M, PHOS3, MG3, CK3 #### [place] [address] [place], [place] #### VD25H #### [facility] [address] [place] [address] Hemogram w/ Autodiffon 07-25 Erythrocyte distribution width Ratio (RBC) 13.6 % Normal 11.5-14.5 [facility] Comment on above: Performed By: #### H EMDF, PT, BMP3M, PHOS3, MG3, CK3 #### [place] [address] [place], [place] #### VD25H #### [facility] [address] [place] [address] Hematocrit Volume Fraction (Bld) 31.3 % Low 40.0-52.0 [facility] Comment on above: Performed By: #### H EMDF, PT, BMP3M, PHOS3, MG3, CK3 #### [address] [place], [place] #### VD25H #### [facility] [address] [place] [address] Hemoglobin mass conc (Bld) 10.6 g/dL Low 13.0-18.0 [facility] Comment on above: Performed By: #### H EMDF, PT, BMP3M, PHOS3, MG3, CK3 #### [place] [address] [place], [place] #### VD25H #### [facility] [address] [place] [address] MCH Entitic mass (RBC) 29.4 pg Normal 26.0-34.0 [facility] Comment on above: Performed By: #### H EMDF, PT, BMP3M, PHOS3, MG3, CK3 #### [address] [place], [place] #### VD25H #### [place] [address] [place] [address] MCHC mass conc (RBC) 33.8 % Normal 32.0-36.0 [facility] Comment on above: Performed By: #### H EMDF, PT, BMP3M, PHOS3, MG3, CK3 #### [address] [place], [place] #### VD25H #### [facility] [address] [place] [address] MCV Entitic volume (RBC) 86.9 fL Normal 80.0-98.0 [facility] Comment on above: Performed By: #### H EMDF, PT, BMP3M, PHOS3, MG3, CK3 #### [address] #### VD25H #### [facility] [address] [place] [address] Platelet mean volume Entitic volume (Bld) 8.3 fL Normal 7.4-10.4 [facility] Comment on above: Performed By: #### H EMDF, PT, BMP3M, PHOS3, MG3, CK3 #### [address] #### VD25H #### [facility] [address] [place] [address] Platelets #/vol (Bld) 360 10*3/uL Normal 140-440 [facility] Comment on above: Performed By: #### H EMDF, PT, BMP3M, PHOS3, MG3, CK3 #### [address] #### VD25H #### [facility] [address] [place] [address] RBC #/vol (Bld) 3.61 10*6/uL Low 4.40-5.90 [facility] Comment on above: Performed By: #### H EMDF, PT, BMP3M, PHOS3, MG3, CK3 #### [address] #### VD25H #### [facility] [address] [place] [address] WBC #/vol (Bld) 14.7 10*3/uL High 3.6-10.7 [facility] Comment on above: Performed By: #### H EMDF, PT, BMP3M, PHOS3, MG3, CK3 #### [facility] [address] [place], [place] #### VD25H #### [facility] [address] [place] [address] Magnesiumon 07-25-2018 Magnesium mass conc 2.1 mg/dL Normal 1.6-2.3 [facility] Comment on above: Performed By: #### H EMDF, PT, BMP3M, PHOS3, MG3, CK3 #### [address] #### VD25H #### [facility] [address] [place] [address] Manual Diffon 07-25-2018 Abs Baso Cnt 0.1 10*3/uL Normal 0.0-0.2 [facility] Comment on above: Performed By: #### H EMDF, PT, BMP3M, PHOS3, MG3, CK3 #### [address] #### VD25H #### [facility] [address] [place] Abs Neutrophile Cnt 12.9 10*3/uL High 2.2-8.2 [facility] Comment on above: Performed By: #### H EMDF, PT, BMP3M, PHOS3, MG3, CK3 #### [address] #### VD25H #### [facility] [address] [place] [place] [address] Anisocytosis Ql (Bld) Slight Normal [facility] Comment on above: Performed By: #### H EMDF, PT, BMP3M, PHOS3, MG3, CK3 #### [address] #### VD25H #### [facility] [address] [place] [address] Bands 4 % High 0-3 [facility] Comment on above: Performed By: #### H EMDF, PT, BMP3M, PHOS3, MG3, CK3 #### [facility] [address] [place] #### VD25H #### [facility] [address] [place] [address] Basophils/100 WBC (Bld) 1 % Normal 0-2 [facility] Comment on above: Performed By: #### H EMDF, PT, BMP3M, PHOS3, MG3, CK3 #### [place] [address] [place] #### VD25H #### [facility] [address] [place] [address] Eosinophils #/vol (Bld) 0.6 10*3/uL High 0.0-0.5 [facility] Comment on above: Performed By: #### H EMDF, PT, BMP3M, PHOS3, MG3, CK3 #### [address] #### VD25H #### [facility] [address] [place] [address] Eosinophils/100 WBC (Bld) 4 % Normal 1-6 [facility] Comment on above: Performed By: #### H EMDF, PT, BMP3M, PHOS3, MG3, CK3 #### [place] [address] [place], [place] #### VD25H #### [facility] [address] [place] [address] Lymphocytes #/vol (Bld) 0.1 10*3/uL Low 1.1-4.5 [facility] Comment on above: Performed By: #### H EMDF, PT, BMP3M, PHOS3, MG3, CK3 #### [place] [address] [place], [place] #### VD25H #### [facility] [address] [place] [address] Lymphocytes/100 WBC (Bld) 1 % Low 20-40 [facility] Comment on above: Performed By: #### H EMDF, PT, BMP3M, PHOS3, MG3, CK3 #### [address] [place], [place] #### VD25H #### [facility] [address] [place] [address] Macrocytosis Slight Normal [facility] Comment on above: Performed By: #### H EMDF, PT, BMP3M, PHOS3, MG3, CK3 #### [address] #### VD25H #### [place] [address] [place] [address] Metamyelocytes 2 % Abnormal <1 [facility] Comment on above: Performed By: #### H EMDF, PT, BMP3M, PHOS3, MG3, CK3 #### [address] #### VD25H #### [place] [address] [place] [address] Microcytosis Slight Normal [facility] Comment on above: Performed By: #### H EMDF, PT, BMP3M, PHOS3, MG3, CK3 #### [address] #### VD25H #### [place] [address] [place] [address] Monocytes #/vol (Bld) 0.6 10*3/uL Normal 0.2-1.1 [facility] Comment on above: Performed By: #### H EMDF, PT, BMP3M, PHOS3, MG3, CK3 #### [address] [place], [place] #### VD25H #### [place] [address] [place] [address] Monocytes/100 WBC (Bld) 4 % Normal 2-10 [facility] Comment on above: Performed By: #### H EMDF, PT, BMP3M, PHOS3, MG3, CK3 #### [facility] [address] [place], [place] #### VD25H #### [facility] [address] [place] [address] RBC morphology finding Nom (Bld) ABNORMAL Normal [facility] Comment on above: Performed By: #### H EMDF, PT, BMP3M, PHOS3, MG3, CK3 #### [place] [address] [place], [place] #### VD25H #### [facility] [address] [place] [address] Seg Neutrophils 84 % High 40-80 [facility] Comment on above: Performed By: #### H EMDF, PT, BMP3M, PHOS3, MG3, CK3 #### [address] #### VD25H #### [facility] [address] [place] [address] Cells counted 100 Normal [facility] Comment on above: Performed By: #### H EMDF, PT, BMP3M, PHOS3, MG3, CK3 #### [place] [address] [place], [place] #### VD25H #### [facility] [address] [place] [address] Phosphoruson 07-25-2018 Phosphate mass conc 2.7 mg/dL Normal 2.5-4.5 [facility] Comment on above: Performed By: #### H EMDF, PT, BMP3M, PHOS3, MG3, CK3 #### [place] [address] [place], [place] #### VD25H #### [facility] [address] [place] [address] Triglycerideon 07-25-2018 Triglyceride mass conc 82 mg/dL Normal <150 [facility] Comment on above: Performed By: #### H EMDF, PT, BMP3M, PHOS3, MG3, CK3 #### [address] [place], [place] #### VD25H #### [facility] [address] [place] [address] Basic Metabolic Panelon - Calcium mass conc 8.0 mg/dL Low 8.4-10.4 [facility] Comment on above: Performed By: #### H EMDF, PT, BMP3M, PHOS3, MG3, CK3 #### [place] [address] [place] #### VD25H #### [facility] [address] [place] [address] Anion gap molar conc 9 Normal [facility] Comment on above: Performed By: #### H EMDF, PT, BMP3M, PHOS3, MG3, CK3 #### [address] #### VD25H #### [facility] [address] [place] [address] CO2 molar conc 23 mmol/L Normal 22-30 [facility] Comment on above: Performed By: #### H EMDF, PT, BMP3M, PHOS3, MG3, CK3 #### [address] #### VD25H #### [facility] [address] [place] [address] Creatinine mass conc 0.71 mg/dL Normal 0.52-1.25 [facility] Comment on above: Performed By: #### H EMDF, PT, BMP3M, PHOS3, MG3, CK3 #### [address] #### VD25H #### [facility] [address] [place] [address] GFR/1.73 sq M predicted among blacks MDRD vol rate/area (S/P/Bld) mL/min/{1.73_m2} Normal >60 [facility] Comment on above: Performed By: #### H EMDF, PT, BMP3M, PHOS3, MG3, CK3 #### [facility] [address] [place] #### VD25H #### [facility] [address] [place] [address] GFR/1.73 sq M predicted among non-blacks MDRD vol rate/area (S/P/Bld) mL/min/{1.73_m2} Normal >60 [facility] Comment on above: Result Comment: Sour ce- MDRD equation with creatinine calibration to IDMS(NKDEP) eGFR not recommended for drug dose adjustment Performed By: #### H EMDF, PT, BMP3M, PHOS3, MG3, CK3 #### [place] [address] [place], [place] #### VD25H #### [facility] [address] [place] [address] Glucose mass conc 160 mg/dL High 70-100 [facility] Comment on above: Performed By: #### H EMDF, PT, BMP3M, PHOS3, MG3, CK3 #### [facility] [address] [place] #### VD25H #### [facility] [address] [place] [address] Urea nitrogen mass conc 28 mg/dL High 7-20 [facility] Comment on above: Performed By: #### H EMDF, PT, BMP3M, PHOS3, MG3, CK3 #### [facility] [address] [place] #### VD25H #### [facility] [address] [place] [address] Chloride molar conc 109 mmol/L High 98-107 [facility] Comment on above: Performed By: #### H EMDF, PT, BMP3M, PHOS3, MG3, CK3 #### [facility] [address] [place] #### VD25H #### [facility] [address] [place] [address] Potassium molar conc 3.7 mmol/L Normal 3.5-5.1 [facility] Comment on above: Performed By: #### H EMDF, PT, BMP3M, PHOS3, MG3, CK3 #### [facility] [address] [place] [address] #### VD25H #### [facility] [address] [place] [address] Sodium molar conc 141 mmol/L Normal 135-145 [facility] Comment on above: Performed By: #### H EMDF, PT, BMP3M, PHOS3, MG3, CK3 #### [facility] [address] [place] [address] #### VD25H #### [facility] [address] [place] [address] CR Chest Portableon 07-25-19 19 CR Chest Portable Patient Name: KATHYA HOOPER Diagnostic Radiology Exam Date/Time 07/24/2018 13:12:47 EDT Exam CR Chest Portable Ordering Physician DO WOLFF KATHRYN C Accession Number [id number] CPT4 Codes 62032 () Reason For Exam line placement Report [...] Transcribed Date and Time: 07/24/2018 3:10 Normal [facility] CR Chest Portable Patient Name: KATHYA HOOPER Diagnostic Radiology Exam Date/Time 07/24/2018 07:11:26 EDT Exam CR Chest Portable Ordering Physician MARIA EUGENIA PEREZ Accession Number [id number] CPT4 Codes 36666 () Reason For Exam ETT placement Report [...] Transcribed Date and Time: 07/24/2018 7:31 Normal [facility] CULT./ST. RESPIRATORYon - CULT./ST. RESPIRATORY CULT./ST. RESPIRAT [...] 1 S Trimeth/Sulfa(CHRISTI) <= 20 S Normal [employer] [facility] Comment on above: Order Comment: Speci men Source Comment:Endotracheal Performed By: #### H EMDF, PT, BMP3M, PHOS3, MG3, CK3 #### [facility] [employer] [address] [address] #### VD25H #### [facility] [address] [place] [address] CULTURE URINEon 07-24-2018 CULTURE URINE 1 Organism [...] 4 S Trimeth/Sulfa(CHRISTI) <= 20 S Normal [facility] Comment on above: Order Comment: Speci men Source Comment:Urine, clean catch Performed By: #### H EMDF, PT, BMP3M, PHOS3, MG3, CK3 #### [facility] [employer] [address] [place] [address] #### VD25H #### [facility] [address] [place] [address] Creatinine, Ur Randomon 06-30 Creatinine, Ur Random 49.5 mg/dL Normal No Range [facility] Comment on above: Performed By: #### H EMDF, PT, BMP3M, PHOS3, MG3, CK3 #### [employer] [facility] [address] [place] [address] #### VD25H #### [facility] [employer] [facility] [address] [place] [address] Glucose,Bedsideon 07-24-2018 Glucose mass conc 124 mg/dL High 70-100 [facility] Comment on above: Result Comment: Test performed by glucose meter. Results may be 10%-15% lower than serum/plasma values. (CLIA ID [id number]) Performed By: #### H EMDF, PT, BMP3M, PHOS3, MG3, CK3 #### [facility] [employer] [facility] [address] [place], [place] #### VD25H #### [employer] [facility] [address] [place] [address] Glucose mass conc 152 mg/dL High 70-100 [facility] Comment on above: Result Comment: Test performed by glucose meter. Results may be 10%-15% lower than serum/plasma values. (CLIA ID [id number]) Performed By: #### H EMDF, PT, BMP3M, PHOS3, MG3, CK3 #### [facility] [address] #### VD25H #### [employer] [facility] [address] [place] [address] Glucose mass conc 149 mg/dL High 70-100 [facility] Comment on above: Result Comment: Test performed by glucose meter. Results may be 10%-15% lower than serum/plasma values. (CLIA ID [id number]) Performed By: #### H EMDF, PT, BMP3M, PHOS3, MG3, CK3 #### [employer] [address] #### VD25H #### [employer] [facility] [address] [place] [address] Hemogram w/ Autodiffon 07-24 Erythrocyte distribution width Ratio (RBC) 13.7 % Normal 11.5-14.5 [facility] Comment on above: Performed By: #### H EMDF, PT, BMP3M, PHOS3, MG3, CK3 #### [employer] [address] #### VD25H #### [facility] [employer] [facility] [address] [place] [address] Hematocrit Volume Fraction (Bld) 31.4 % Low 40.0-52.0 [facility] Comment on above: Performed By: #### H EMDF, PT, BMP3M, PHOS3, MG3, CK3 #### [address] #### VD25H #### [facility] [address] [place] [address] Hemoglobin mass conc (Bld) 10.7 g/dL Low 13.0-18.0 [facility] Comment on above: Performed By: #### H EMDF, PT, BMP3M, PHOS3, MG3, CK3 #### [address] #### VD25H #### [facility] [address] [place] [address] MCH Entitic mass (RBC) 29.4 pg Normal 26.0-34.0 [facility] Comment on above: Performed By: #### H EMDF, PT, BMP3M, PHOS3, MG3, CK3 #### [address] #### VD25H #### [facility] [address] [place] [address] MCHC mass conc (RBC) 33.9 % Normal 32.0-36.0 [facility] Comment on above: Performed By: #### H EMDF, PT, BMP3M, PHOS3, MG3, CK3 #### [address] #### VD25H #### [facility] [address] [place] [address] MCV Entitic volume (RBC) 86.8 fL Normal 80.0-98.0 [facility] Comment on above: Performed By: #### H EMDF, PT, BMP3M, PHOS3, MG3, CK3 #### [address] #### VD25H #### [facility] [address] [place] [address] Platelet mean volume Entitic volume (Bld) 8.6 fL Normal 7.4-10.4 [facility] Comment on above: Performed By: #### H EMDF, PT, BMP3M, PHOS3, MG3, CK3 #### [facility] [address] [place], [place] #### VD25H #### [facility] [address] [place] [address] Platelets #/vol (Bld) 304 10*3/uL Normal 140-440 [facility] Comment on above: Performed By: #### H EMDF, PT, BMP3M, PHOS3, MG3, CK3 #### [place] [address] [place], [place] #### VD25H #### [facility] [address] [place] [address] RBC #/vol (Bld) 3.62 10*6/uL Low 4.40-5.90 [facility] Comment on above: Performed By: #### H EMDF, PT, BMP3M, PHOS3, MG3, CK3 #### [address] #### VD25H #### [facility] [address] [place] [address] WBC #/vol (Bld) 14.0 10*3/uL High 3.6-10.7 [facility] Comment on above: Performed By: #### H EMDF, PT, BMP3M, PHOS3, MG3, CK3 #### [place] [address] [address] [place], [place] #### VD25H #### [facility] [address] [place] [address] Magnesiumon 07-24-2018 Magnesium mass conc 2.2 mg/dL Normal 1.6-2.3 [facility] Comment on above: Performed By: #### H EMDF, PT, BMP3M, PHOS3, MG3, CK3 #### [address] #### VD25H #### [facility] [address] [place] [address] Manual Diffon 07-24-2018 Abs Baso Cnt 0.0 10*3/uL Normal 0.0-0.2 [facility] Comment on above: Performed By: #### H EMDF, PT, BMP3M, PHOS3, MG3, CK3 #### [address] #### VD25H #### [facility] [address] [place] [address] Abs Neutrophile Cnt 12.2 10*3/uL High 2.2-8.2 [facility] Comment on above: Performed By: #### H EMDF, PT, BMP3M, PHOS3, MG3, CK3 #### [address] #### VD25H #### [place] [address] [place] [address] Eosinophils #/vol (Bld) 0.4 10*3/uL Normal 0.0-0.5 [facility] Comment on above: Performed By: #### H EMDF, PT, BMP3M, PHOS3, MG3, CK3 #### [address] #### VD25H #### [facility] [address] [place] [address] Eosinophils/100 WBC (Bld) 3 % Normal 1-6 [facility] Comment on above: Performed By: #### H EMDF, PT, BMP3M, PHOS3, MG3, CK3 #### [address] #### VD25H #### [facility] [address] [place] [address] Lymphocytes #/vol (Bld) 1.0 10*3/uL Low 1.1-4.5 [facility] Comment on above: Performed By: #### H EMDF, PT, BMP3M, PHOS3, MG3, CK3 #### [address] #### VD25H #### [facility] [address] [place] [address] Lymphocytes/100 WBC (Bld) 7 % Low 20-40 [facility] Comment on above: Performed By: #### H EMDF, PT, BMP3M, PHOS3, MG3, CK3 #### [place] [address] [address] [place], [place] #### VD25H #### [facility] [address] [place] [address] Monocytes #/vol (Bld) 0.4 10*3/uL Normal 0.2-1.1 [facility] Comment on above: Performed By: #### H EMDF, PT, BMP3M, PHOS3, MG3, CK3 #### [place] [address] [address] [place], [place] #### VD25H #### [place] [address] [place] [address] Monocytes/100 WBC (Bld) 3 % Normal 2-10 [facility] Comment on above: Performed By: #### H EMDF, PT, BMP3M, PHOS3, MG3, CK3 #### [place] [address] [address] [place], [place] #### VD25H #### [facility] [address] [place] [address] RBC morphology finding Nom (Bld) Normal Normal [facility] Comment on above: Performed By: #### H EMDF, PT, BMP3M, PHOS3, MG3, CK3 #### [place] [address] [address] [place], [place] #### VD25H #### [facility] [address] [place] [address] Seg Neutrophils 87 % High 40-80 [facility] Comment on above: Performed By: #### H EMDF, PT, BMP3M, PHOS3, MG3, CK3 #### [place] [address] [address] [place], [place] #### VD25H #### [facility] [address] [place] [address] Bands 0 % Normal 0-3 [facility] Comment on above: Performed By: #### H EMDF, PT, BMP3M, PHOS3, MG3, CK3 #### [place] [address] [address] [place], [place] #### VD25H #### [facility] [address] [place] [address] Basophils/100 WBC (Bld) 0 % Normal 0-2 [facility] Comment on above: Performed By: #### H EMDF, PT, BMP3M, PHOS3, MG3, CK3 #### [place] [address] [address] [place], [place] #### VD25H #### [facility] [address] [place] [address] Cells counted 100 Normal [facility] Comment on above: Performed By: #### H EMDF, PT, BMP3M, PHOS3, MG3, CK3 #### [address] [place], [place] #### VD25H #### [facility] [address] [place] [address] Phosphoruson 07-24-2018 Phosphate mass conc 2.7 mg/dL Normal 2.5-4.5 [facility] Comment on above: Performed By: #### H EMDF, PT, BMP3M, PHOS3, MG3, CK3 #### [place] [address] [address] [place], [place] #### VD25H #### [facility] [address] [place] [address] Triglycerideon 07-24-2018 Triglyceride mass conc 78 mg/dL Normal <150 [facility] Comment on above: Performed By: #### H EMDF, PT, BMP3M, PHOS3, MG3, CK3 #### [place] [address] [address] [place], [place] #### VD25H #### [facility] [address] [place] [address] Urea Nitrogen,Ur Randomon Urea nitrogen mass conc 1199 mg/dL Normal No Range [facility] Comment on above: Performed By: #### H EMDF, PT, BMP3M, PHOS3, MG3, CK3 #### [facility] [address] [place], [place] #### VD25H #### [facility] [address] [place] [address] Add on test from HISon 07-23 Add on test from HIS Accepted Normal [facility] Comment on above: Result Comment: Spec imen available & acceptable for analysis. Performed By: #### H EMDF, PT, BMP3M, PHOS3, MG3, CK3 #### [place] [address] [address] [place], [place] #### VD25H #### [facility] [address] [place] [address] Arterial Blood Gaseson 07-23 CO2 molar conc 23.0 mmol/L Normal 23.0-27.0 [facility] Comment on above: Performed By: #### H EMDF, PT, BMP3M, PHOS3, MG3, CK3 #### [place] [address] [address] [place], [place] #### VD25H #### [facility] [address] [place] [address] HCO3 molar conc (Bld) 22.0 mmol/L Normal 21.0-25.0 [facility] Comment on above: Performed By: #### H EMDF, PT, BMP3M, PHOS3, MG3, CK3 #### [place] [address] [address] [place], [place] #### VD25H #### [facility] [address] [place] [address] Hemoglobin mass conc (Bld) 10.9 g/dL Normal ScreenOnly [facility] Comment on above: Performed By: #### H EMDF, PT, BMP3M, PHOS3, MG3, CK3 #### [place] [address] [place] #### VD25H #### [facility] [address] [place] [address] Oxygen ppres (Bld) 102.4 mm[Hg] High 80.0-100.0 [facility] Comment on above: Performed By: #### H EMDF, PT, BMP3M, PHOS3, MG3, CK3 #### [place] [address] [address] [place], [place] #### VD25H #### [facility] [address] [place] [address] Oxygen saturation in Blood 97.7 % Normal 95.0-100.0 [facility] Comment on above: Performed By: #### H EMDF, PT, BMP3M, PHOS3, MG3, CK3 #### [address] #### VD25H #### [place] [address] [place] [address] pCO2 34.4 mm[Hg] Low 35.0-45.0 [facility] Comment on above: Performed By: #### H EMDF, PT, BMP3M, PHOS3, MG3, CK3 #### [address] #### VD25H #### [facility] [address] [place] [address] pH (Bld) 7.423 Normal 7.350-7.450 [facility] Comment on above: Performed By: #### H EMDF, PT, BMP3M, PHOS3, MG3, CK3 #### [address] [place], [place] #### VD25H #### [facility] [address] [place] [address] Std Base Excess -1.9 mmol/L Normal -3.0-3.0 [facility] Comment on above: Performed By: #### H EMDF, PT, BMP3M, PHOS3, MG3, CK3 #### [address] #### VD25H #### [facility] [address] [place] [address] FIO2 .30 Normal [facility] Comment on above: Performed By: #### H EMDF, PT, BMP3M, PHOS3, MG3, CK3 #### [facility] [address] [facility] #### VD25H #### [facility] [address] [place] [address] Basic Metabolic Panelon 06-30 Anion gap molar conc 12 Normal [facility] Comment on above: Performed By: #### H EMDF, PT, BMP3M, PHOS3, MG3, CK3 #### [place] [address] [address] [place], [place] #### VD25H #### [facility] [address] [place] [address] Calcium mass conc 7.5 mg/dL Low 8.4-10.4 [facility] Comment on above: Performed By: #### H EMDF, PT, BMP3M, PHOS3, MG3, CK3 #### [place] [address] [address] [facility] [place] #### VD25H #### [facility] [address] [place] [address] CO2 molar conc 23 mmol/L Normal 22-30 [facility] Comment on above: Performed By: #### H EMDF, PT, BMP3M, PHOS3, MG3, CK3 #### [facility] [address] [facility] [place] #### VD25H #### [facility] [address] [place] [address] Glucose mass conc 148 mg/dL High 70-100 [facility] Comment on above: Performed By: #### H EMDF, PT, BMP3M, PHOS3, MG3, CK3 #### [place] [address] [address] [facility] [place] #### VD25H #### [facility] [address] [place] [address] Urea nitrogen mass conc 82 mg/dL High 7-20 [facility] Comment on above: Performed By: #### H EMDF, PT, BMP3M, PHOS3, MG3, CK3 #### [facility] [address] [place] [address] #### VD25H #### [facility] [address] [place] [address] Creatinine mass conc 3.01 mg/dL High 0.52-1.25 [facility] Comment on above: Performed By: #### H EMDF, PT, BMP3M, PHOS3, MG3, CK3 #### [address] #### VD25H #### [facility] [address] [place] [place] [address] GFR/1.73 sq M predicted among blacks MDRD vol rate/area (S/P/Bld) 25.8 mL/min/{1.73_m2} Normal >60 [facility] Comment on above: Performed By: #### H EMDF, PT, BMP3M, PHOS3, MG3, CK3 #### [address] #### VD25H #### [facility] [address] [place] [address] GFR/1.73 sq M predicted among non-blacks MDRD vol rate/area (S/P/Bld) 21.3 mL/min/{1.73_m2} Normal >60 [facility] Comment on above: Result Comment: Sour ce- MDRD equation with creatinine calibration to IDMS(NKDEP) eGFR not recommended for drug dose adjustment Performed By: #### H EMDF, PT, BMP3M, PHOS3, MG3, CK3 #### [facility] [address] [place], [place] #### VD25H #### [facility] [address] [place] [place] [address] Chloride molar conc 106 mmol/L Normal 98-107 [facility] Comment on above: Performed By: #### H EMDF, PT, BMP3M, PHOS3, MG3, CK3 #### [facility] [address] [place] [address] #### VD25H #### [facility] [address] [place] [address] Potassium molar conc 4.2 mmol/L Normal 3.5-5.1 [facility] Comment on above: Performed By: #### H EMDF, PT, BMP3M, PHOS3, MG3, CK3 #### [facility] [address] [place] [address] #### VD25H #### [facility] [address] [place] [address] Sodium molar conc 141 mmol/L Normal 135-145 [facility] Comment on above: Performed By: #### H EMDF, PT, BMP3M, PHOS3, MG3, CK3 #### [facility] [address] [place], [place] #### VD25H #### [facility] [address] [place] [address] CR Chest Portableon 07-24-19 CR Chest Portable Patient Name: KATHYA HOOPER Diagnostic Radiology Exam Date/Time 07/23/2018 07:06:03 EDT Exam CR Chest Portable Ordering Physician MARIA EUGENIA PEREZ Accession Number [id number] CPT4 Codes 31918 () Reason For Exam ETT placement Report [...] Transcribed Date and Time: 07/23/2018 7:58 Normal [facility] Creatinine, Ur Randomon 06-30 Creatinine, Ur Random 56.8 mg/dL Normal No Range [facility] Comment on above: Performed By: #### H EMDF, PT, BMP3M, PHOS3, MG3, CK3 #### [facility] [address] [place] [address] #### VD25H #### [facility] [address] [place] [address] Glucose,Bedsideon 07-23-2018 Glucose mass conc 116 mg/dL High 70-100 [facility] Comment on above: Result Comment: Test performed by glucose meter. Results may be 10%-15% lower than serum/plasma values. (CLIA ID [id number]) Performed By: #### H EMDF, PT, BMP3M, PHOS3, MG3, CK3 #### [facility] [address] [place] [address] #### VD25H #### [facility] [address] [place] [address] Glucose mass conc 139 mg/dL High 70-100 [facility] Comment on above: Result Comment: Test performed by glucose meter. Results may be 10%-15% lower than serum/plasma values. (CLIA ID [id number]) Performed By: #### H EMDF, PT, BMP3M, PHOS3, MG3, CK3 #### [facility] [address] [place] [address] #### VD25H #### [facility] [address] [place] [address] Glucose mass conc 140 mg/dL High 70-100 [facility] Comment on above: Result Comment: Test performed by glucose meter. Results may be 10%-15% lower than serum/plasma values. (CLIA ID [id number]) Performed By: #### H EMDF, PT, BMP3M, PHOS3, MG3, CK3 #### [address] #### VD25H #### [facility] [address] [place] [address] Glucose mass conc 140 mg/dL High 70-100 [facility] Comment on above: Result Comment: Test performed by glucose meter. Results may be 10%-15% lower than serum/plasma values. (CLIA ID [id number]) Performed By: #### H EMDF, PT, BMP3M, PHOS3, MG3, CK3 #### [address] #### VD25H #### [place] [address] [place] [address] Hemogram w/ Autodiffon 07-23 Abs Baso Cnt 0.0 10*3/uL Normal 0.0-0.2 [facility] Comment on above: Performed By: #### H EMDF, PT, BMP3M, PHOS3, MG3, CK3 #### [address] #### VD25H #### [facility] [address] [place] [address] Abs Neutrophile Cnt 16.2 10*3/uL High 1.8-7.0 [facility] Comment on above: Performed By: #### H EMDF, PT, BMP3M, PHOS3, MG3, CK3 #### [address] #### VD25H #### [facility] [address] [place] [address] Basophils/100 WBC (Bld) 0.3 % Normal 0.0-2.0 [facility] Comment on above: Performed By: #### H EMDF, PT, BMP3M, PHOS3, MG3, CK3 #### [address] #### VD25H #### [facility] [address] [place] [address] Eosinophils #/vol (Bld) 0.2 10*3/uL Normal 0.0-0.5 [facility] Comment on above: Performed By: #### H EMDF, PT, BMP3M, PHOS3, MG3, CK3 #### [address] #### VD25H #### [facility] [address] [place] [address] Eosinophils/100 WBC (Bld) 1.2 % Normal 1.0-6.0 [facility] Comment on above: Performed By: #### H EMDF, PT, BMP3M, PHOS3, MG3, CK3 #### [address] #### VD25H #### [facility] [address] [place] [address] Erythrocyte distribution width Ratio (RBC) 13.9 % Normal 11.5-14.5 [facility] Comment on above: Performed By: #### H EMDF, PT, BMP3M, PHOS3, MG3, CK3 #### [address] #### VD25H #### [facility] [address] [place] [address] Granulocytes/100 WBC (Bld) 86.8 % High 40.0-80.0 [facility] Comment on above: Performed By: #### H EMDF, PT, BMP3M, PHOS3, MG3, CK3 #### [address] #### VD25H #### [facility] [address] [place] [address] Hematocrit Volume Fraction (Bld) 26.7 % Low 40.0-52.0 [facility] Comment on above: Performed By: #### H EMDF, PT, BMP3M, PHOS3, MG3, CK3 #### [address] #### VD25H #### [facility] [address] [place] [address] Hemoglobin mass conc (Bld) 8.9 g/dL Low 13.0-18.0 [facility] Comment on above: Performed By: #### H EMDF, PT, BMP3M, PHOS3, MG3, CK3 #### [address] #### VD25H #### [facility] [address] [place] [address] Lymphocytes #/vol (Bld) 1.2 10*3/uL Normal 1.0-4.3 [facility] Comment on above: Performed By: #### H EMDF, PT, BMP3M, PHOS3, MG3, CK3 #### [address] #### VD25H #### [facility] [address] [place] [address] Lymphocytes/100 WBC (Bld) 6.6 % Low 20.0-40.0 [facility] Comment on above: Performed By: #### H EMDF, PT, BMP3M, PHOS3, MG3, CK3 #### [address] #### VD25H #### [place] [address] [place] [address] MCH Entitic mass (RBC) 29.5 pg Normal 26.0-34.0 [facility] Comment on above: Performed By: #### H EMDF, PT, BMP3M, PHOS3, MG3, CK3 #### [address] #### VD25H #### [facility] [address] [place] [address] MCHC mass conc (RBC) 33.5 % Normal 32.0-36.0 [facility] Comment on above: Performed By: #### H EMDF, PT, BMP3M, PHOS3, MG3, CK3 #### [address] [place], [place] #### VD25H #### [facility] [address] [place] [address] MCV Entitic volume (RBC) 87.9 fL Normal 80.0-98.0 [facility] Comment on above: Performed By: #### H EMDF, PT, BMP3M, PHOS3, MG3, CK3 #### [address] #### VD25H #### [facility] [address] [place] [address] Monocytes #/vol (Bld) 1.0 10*3/uL High 0.0-0.8 [facility] Comment on above: Performed By: #### H EMDF, PT, BMP3M, PHOS3, MG3, CK3 #### [address] #### VD25H #### [place] [address] [place] [address] Monocytes/100 WBC (Bld) 5.1 % Normal 2.0-10.0 [facility] Comment on above: Performed By: #### H EMDF, PT, BMP3M, PHOS3, MG3, CK3 #### [address] #### VD25H #### [facility] [address] [place] [address] Platelet mean volume Entitic volume (Bld) 8.2 fL Normal 7.4-10.4 [facility] Comment on above: Performed By: #### H EMDF, PT, BMP3M, PHOS3, MG3, CK3 #### [address] #### VD25H #### [facility] [address] [place] [address] Platelets #/vol (Bld) 294 10*3/uL Normal 140-440 [facility] Comment on above: Performed By: #### H EMDF, PT, BMP3M, PHOS3, MG3, CK3 #### [address] [place], [place] #### VD25H #### [facility] [address] [place] [address] RBC #/vol (Bld) 3.03 10*6/uL Low 4.40-5.90 [facility] Comment on above: Performed By: #### H EMDF, PT, BMP3M, PHOS3, MG3, CK3 #### [address] [place], [place] #### VD25H #### [facility] [address] [place] [address] WBC #/vol (Bld) 18.7 10*3/uL High 3.6-10.7 [facility] Comment on above: Performed By: #### H EMDF, PT, BMP3M, PHOS3, MG3, CK3 #### [place] [address] [address] [place], [place] #### VD25H #### [facility] [address] [place] [address] LDHon 07-23-2018 LDH 342 U/L High 65-175 [facility] Comment on above: Performed By: #### H EMDF, PT, BMP3M, PHOS3, MG3, CK3 #### [address] #### VD25H #### [facility] [address] [place] [address] Magnesiumon 07-23-2018 Magnesium mass conc 2.5 mg/dL High 1.6-2.3 [facility] Comment on above: Performed By: #### H EMDF, PT, BMP3M, PHOS3, MG3, CK3 #### [address] #### VD25H #### [facility] [address] [place] [address] Phosphoruson 07-23-2018 Phosphate mass conc 4.5 mg/dL Normal 2.5-4.5 [facility] Comment on above: Performed By: #### H EMDF, PT, BMP3M, PHOS3, MG3, CK3 #### [facility] [address] [place], [place] #### VD25H #### [facility] [address] [place] [address] Protein, Total Body Fluidon 07-23-2018 Protein,Total-Body Fld 2.7 g/dL Normal No Range [facility] Comment on above: Performed By: #### H EMDF, PT, BMP3M, PHOS3, MG3, CK3 #### [place] [address] [address] [place], [place] #### VD25H #### [facility] [address] [place] [address] Triglycerideon 07-23-2018 Triglyceride mass conc 63 mg/dL Normal <150 [facility] Comment on above: Performed By: #### H EMDF, PT, BMP3M, PHOS3, MG3, CK3 #### [place] [address] [address] [facility] [place] #### VD25H #### [facility] [address] [place] [address] Urea Nitrogen,Ur Randomon Urea nitrogen mass conc 677 mg/dL Normal No Range [facility] Comment on above: Performed By: #### H EMDF, PT, BMP3M, PHOS3, MG3, CK3 #### [facility] [address] [facility] [place] #### VD25H #### [facility] [address] [place] [address] Urinalysis,Macroon 9 Appearance Nom (U) cloudy Normal Clear [facility] Comment on above: Performed By: #### H EMDF, PT, BMP3M, PHOS3, MG3, CK3 #### [facility] [address] [facility] [place] #### VD25H #### [facility] [address] [place] [address] Bilirubin,Ur Negative Normal Negative [facility] Comment on above: Performed By: #### H EMDF, PT, BMP3M, PHOS3, MG3, CK3 #### [place] [address] [address] [place], [place] #### VD25H #### [facility] [address] [place] [address] Color Nom (U) dk.yel Normal Lt. Yellow [facility] Comment on above: Performed By: #### H EMDF, PT, BMP3M, PHOS3, MG3, CK3 #### [address] #### VD25H #### [facility] [address] [place] [address] Glucose Ql (U) NORM Normal Negative [facility] Comment on above: Performed By: #### H EMDF, PT, BMP3M, PHOS3, MG3, CK3 #### [place] [address] [address] [place], [place] #### VD25H #### [facility] [address] [place] [address] Ketone,Urine Negative Normal Negative [facility] Comment on above: Performed By: #### H EMDF, PT, BMP3M, PHOS3, MG3, CK3 #### [address] #### VD25H #### [facility] [address] [place] [address] Nitrite Ql (U) Negative Normal Negative [facility] Comment on above: Performed By: #### H EMDF, PT, BMP3M, PHOS3, MG3, CK3 #### [address] #### VD25H #### [facility] [address] [place] [address] Occult Blood,Ur 250 {RBC}/uL Normal Negative [facility] Comment on above: Performed By: #### H EMDF, PT, BMP3M, PHOS3, MG3, CK3 #### [place] [address] [address] [place], [place] #### VD25H #### [facility] [address] [place] [address] pH (U) 5.0 Normal 5.0-8.0 [facility] Comment on above: Performed By: #### H EMDF, PT, BMP3M, PHOS3, MG3, CK3 #### [place] [address] [address] [place], [place] #### VD25H #### [facility] [address] [place] [address] Protein mass conc (U) 75 mg/dL Normal Negative [facility] Comment on above: Performed By: #### H EMDF, PT, BMP3M, PHOS3, MG3, CK3 #### [address] #### VD25H #### [place] [address] [place] [address] Specific Wilson,Urine 1.015 Normal 1.005-1.030 [facility] Comment on above: Performed By: #### H EMDF, PT, BMP3M, PHOS3, MG3, CK3 #### [place] [address] [address] [place], [place] #### VD25H #### [place] [address] [place] [address] Urobilinogen Qn (U) NORM Normal 0-1 [facility] Comment on above: Performed By: #### H EMDF, PT, BMP3M, PHOS3, MG3, CK3 #### [place] [address] [place], [place] #### VD25H #### [place] [address] [place] [address] WBC #/vol (Bld) 2 + Normal Negative [facility] Comment on above: Performed By: #### H EMDF, PT, BMP3M, PHOS3, MG3, CK3 #### [place] [address] [address] [place], [place] #### VD25H #### [facility] [address] [place] [address] Urinalysis,Microscopicon Bacteria LM.HPF #/area (Urine sed) Moderate (6-50) Normal Negative [facility] Comment on above: Performed By: #### H EMDF, PT, BMP3M, PHOS3, MG3, CK3 #### [address] [place], [place] #### VD25H #### [facility] [address] [place] [address] Epithelial cells LM.HPF #/area (Urine sed) 0 - 2 Normal 3-5 [facility] Comment on above: Performed By: #### H EMDF, PT, BMP3M, PHOS3, MG3, CK3 #### [address] #### VD25H #### [place] [address] [place] [address] RBC LM.HPF #/area (Urine sed) /[HPF] Normal 0-2 [facility] Comment on above: Performed By: #### H EMDF, PT, BMP3M, PHOS3, MG3, CK3 #### [address] #### VD25H #### [facility] [address] [place] [address] Volume,Urine 8-12 ml Normal [facility] Comment on above: Performed By: #### H EMDF, PT, BMP3M, PHOS3, MG3, CK3 #### [address] #### VD25H #### [facility] [address] [place] [address] WBC LM.HPF #/area (Urine sed) 26 - 50 Normal 0-5 [facility] Comment on above: Performed By: #### H EMDF, PT, BMP3M, PHOS3, MG3, CK3 #### [address] [place] [address] #### VD25H #### [facility] [address] [place] [address] VL Venous Duplex US Lower Ex t Bilateralon 07-23-2018 VL Venous Duplex US Lower Ext Bilateral Patient Name: KATHYA HOOPER Ultrasound Exam Date/Time 07/23/2018 11:16:11 EDT Exam VL Venous Duplex US Lower Ext Bilateral Ordering Physician ETIENNE MARTÍNEZ JULIE Accession Number [id number] CPT4 Codes 49318 () Reason For Exam edema Report [facility] --- Lower Extremity Venous Duplex Report Patient Name: Kathya Hooper : 1955 Study Date: 07/23/2018 W (63yrs) Age: 63 Account: [id number] Gender: M Loc: T209 BP: Ordering: Yesenia Martínez Technologist: Ordering Physician: Yesenia Martínez Internet Marketing Assistant: León Chaidez [facility] Interpreting Physician: Vamsi York MD --- Location: [facility] --- INDICATIONS: Edema. bilateral calf edema. [...] performed. The images were obtained using a [employer] E9 vascular ultrasound machine. --- VENOUS FLOW [...] --+ Electronically signed by: Vamsi York MD [id number] Final Dictated: 07/23/2018 3:00 pm Dictating Physician: VAMSI YORK Signed Date and Time: 07/23/2018 3:00 pm Signed by: VAMSI YORK Normal [facility] Vancomycin Troughon 07-24-19 19 Vancomycin Trough 10.8 ug/mL Low 15.0-20.0 [facility] Comment on above: Result Comment: . Performed By: #### H EMDF, PT, BMP3M, PHOS3, MG3, CK3 #### [facility] [address] [place] #### VD25H #### [facility] [address] [place] [address] Basic Metabolic Panelon 03-2 Calcium mass conc 7.9 mg/dL Low 8.4-10.4 [facility] Comment on above: Performed By: #### H EMDF, PT, BMP3M, PHOS3, MG3, CK3 #### [place] [address] [address] [place], [place] #### VD25H #### [facility] [address] [place] [address] Anion gap molar conc 11 Normal [facility] Comment on above: Performed By: #### H EMDF, PT, BMP3M, PHOS3, MG3, CK3 #### [place] [address] [address] [facility] #### VD25H #### [facility] [address] [place] [address] CO2 molar conc 28 mmol/L Normal 22-30 [facility] Comment on above: Performed By: #### H EMDF, PT, BMP3M, PHOS3, MG3, CK3 #### [place] [address] [place] #### VD25H #### [facility] [address] [place] [address] Glucose mass conc 134 mg/dL High 70-100 [facility] Comment on above: Performed By: #### H EMDF, PT, BMP3M, PHOS3, MG3, CK3 #### [facility] [address] [facility] #### VD25H #### [facility] [address] [place] [address] Urea nitrogen mass conc 51 mg/dL High 7-20 [facility] Comment on above: Performed By: #### H EMDF, PT, BMP3M, PHOS3, MG3, CK3 #### [facility] [address] [place] [address] #### VD25H #### [facility] [address] [place] [address] Creatinine mass conc 1.57 mg/dL High 0.52-1.25 [facility] Comment on above: Performed By: #### H EMDF, PT, BMP3M, PHOS3, MG3, CK3 #### [facility] [address] [place] [address] #### VD25H #### [facility] [address] [place] [address] GFR/1.73 sq M predicted among blacks MDRD vol rate/area (S/P/Bld) 54.6 mL/min/{1.73_m2} Normal >60 [facility] Comment on above: Performed By: #### H EMDF, PT, BMP3M, PHOS3, MG3, CK3 #### [address] [address] #### VD25H #### [facility] [address] [place] [address] GFR/1.73 sq M predicted among non-blacks MDRD vol rate/area (S/P/Bld) 45.1 mL/min/{1.73_m2} Normal >60 [facility] Comment on above: Result Comment: Sour ce- MDRD equation with creatinine calibration to IDMS(NKDEP) eGFR not recommended for drug dose adjustment Performed By: #### H EMDF, PT, BMP3M, PHOS3, MG3, CK3 #### [address] [address] #### VD25H #### [facility] [address] [place] [address] Chloride molar conc 107 mmol/L Normal 98-107 [facility] Comment on above: Performed By: #### H EMDF, PT, BMP3M, PHOS3, MG3, CK3 #### [address] [address] #### VD25H #### [facility] [address] [place] [address] Potassium molar conc 3.8 mmol/L Normal 3.5-5.1 [facility] Comment on above: Performed By: #### H EMDF, PT, BMP3M, PHOS3, MG3, CK3 #### [facility] [address] [place] [address] #### VD25H #### [facility] [address] [place] [address] Sodium molar conc 146 mmol/L High 135-145 [facility] Comment on above: Performed By: #### H EMDF, PT, BMP3M, PHOS3, MG3, CK3 #### [facility] [address] [place] [address] #### VD25H #### [facility] [address] [place] [address] CR Abdomen APon 07-22-2018 CR Abdomen AP Patient Name: KATHYA HOOPER Diagnostic Radiology Exam Date/Time 07/22/2018 08:02:02 EDT Exam CR Abdomen AP Ordering Physician MARIA EUGENIA PEREZ Accession Number [id number] CPT4 Codes 04118 () Reason For Exam ileus Report Supine [...] Transcribed Date and Time: 07/22/2018 9:28 Normal [facility] CR Chest Portableon 07-23-19 CR Chest Portable Patient Name: KATHYA HOOPER Diagnostic Radiology Exam Date/Time 07/22/2018 16:32:15 EDT Exam CR Chest Portable Ordering Physician MD NATE, [facility] Accession Number [id number] CPT4 Codes 73673 () Reason For Exam Thoracentesis Report Clinical [...] Transcribed Date and Time: 07/22/2018 6:46 Normal [facility] CR Chest Portable Patient Name: KATHYA HOOPER Diagnostic Radiology Exam Date/Time 07/22/2018 06:49:22 EDT Exam CR Chest Portable Ordering Physician MARIA EUGENIA PEREZ Accession Number [id number] CPT4 Codes 59221 () Reason For Exam ETT placement Report [...] Time: 07/22/2018 9:32 am Signed by: MD AGRCIA JOE M Transcribed Date and Time: 07/22/2018 9:31 Normal [facility] CULTURE AND STAIN - FLUIDon 07-22-2018 CULTURE AND STAIN - FLUID CULTURE & STAIN - FLUID --> Status: F No growth at 5 days. STAIN GRAM --> Status: F Moderate polymorphonuclear cells/lpf. Moderate mononuclear cells/lpf No organisms seen. Cytocentrifugation performed. Moderate mononuclear cells/lpf No organisms seen. Cytocentrifugation performed. Normal [facility] Comment on above: Order Comment: Speci men Source Comment:Body Fluid Performed By: #### H EMDF, PT, BMP3M, PHOS3, MG3, CK3 #### [facility] [address] [place], [place] #### VD25H #### [facility] [address] [place] [address] Cell Count,Body Fluidon 06-30 Nucleated Cells 259 {cells}/uL Normal [facility] Comment on above: Performed By: #### H EMDF, PT, BMP3M, PHOS3, MG3, CK3 #### [facility] [address] [place] [address] #### VD25H #### [facility] [address] [place] [address] RBC Count Body Fld 123 {RBC}/uL Normal [facility] Comment on above: Performed By: #### H EMDF, PT, BMP3M, PHOS3, MG3, CK3 #### [facility] [address] [place], [place] #### VD25H #### [facility] [address] [place] [address] Fluid Type thoracentesis Normal [facility] Comment on above: Performed By: #### H EMDF, PT, BMP3M, PHOS3, MG3, CK3 #### [place] [address] [place] #### VD25H #### [facility] [address] [place] [address] Glucose, Body Fluidon 2018 Fluid Type Thoracentesis Normal [facility] Comment on above: Performed By: #### H EMDF, PT, BMP3M, PHOS3, MG3, CK3 #### [address] [address] [place], [place] #### VD25H #### [facility] [address] [place] [address] Glucose, Body Fluid 136 mg/dL Normal No Range [facility] Comment on above: Performed By: #### H EMDF, PT, BMP3M, PHOS3, MG3, CK3 #### [place] [address] [place] #### VD25H #### [facility] [address] [place] [address] Glucose,Bedsideon 07-22-2018 Glucose mass conc 142 mg/dL High 70-100 [facility] Comment on above: Result Comment: Test performed by glucose meter. Results may be 10%-15% lower than serum/plasma values. (CLIA ID [id number]) Performed By: #### H EMDF, PT, BMP3M, PHOS3, MG3, CK3 #### [place] [address] [place] #### VD25H #### [facility] [address] [place] [address] Glucose mass conc 127 mg/dL High 70-100 [facility] Comment on above: Result Comment: Test performed by glucose meter. Results may be 10%-15% lower than serum/plasma values. (CLIA ID [id number]) Performed By: #### H EMDF, PT, BMP3M, PHOS3, MG3, CK3 #### [facility] [address] [place], [place] #### VD25H #### [facility] [address] [place] [address] Glucose mass conc 139 mg/dL High 70-100 [facility] Comment on above: Result Comment: Test performed by glucose meter. Results may be 10%-15% lower than serum/plasma values. (CLIA ID [id number]) Performed By: #### H EMDF, PT, BMP3M, PHOS3, MG3, CK3 #### [employer] [address] [place] [address] #### VD25H #### [employer] [address] [place] [address] Glucose mass conc 124 mg/dL High 70-100 [facility] Comment on above: Result Comment: Test performed by glucose meter. Results may be 10%-15% lower than serum/plasma values. (CLIA ID [id number]) Performed By: #### H EMDF, PT, BMP3M, PHOS3, MG3, CK3 #### [facility] [address] [place] [address] #### VD25H #### [facility] [address] [place] [address] Glucose mass conc 128 mg/dL High 70-100 [facility] Comment on above: Result Comment: Test performed by glucose meter. Results may be 10%-15% lower than serum/plasma values. (CLIA ID [id number]) Performed By: #### H EMDF, PT, BMP3M, PHOS3, MG3, CK3 #### [employer] [facility] [address] #### VD25H #### [facility] [address] [facility] [place] [address] Glucose mass conc 113 mg/dL High 70-100 [facility] Comment on above: Result Comment: Test performed by glucose meter. Results may be 10%-15% lower than serum/plasma values. (CLIA ID [id number]) Performed By: #### H EMDF, PT, BMP3M, PHOS3, MG3, CK3 #### [address] #### VD25H #### [facility] [address] [facility] [place] [address] Hemogram w/ Autodiffon 07-22 Abs Baso Cnt 0.1 10*3/uL Normal 0.0-0.2 [facility] Comment on above: Performed By: #### H EMDF, PT, BMP3M, PHOS3, MG3, CK3 #### [address] #### VD25H #### [facility] [address] [place] [address] Abs Neutrophile Cnt 15.2 10*3/uL High 1.8-7.0 [facility] Comment on above: Performed By: #### H EMDF, PT, BMP3M, PHOS3, MG3, CK3 #### [address] #### VD25H #### [facility] [address] [place] [address] Basophils/100 WBC (Bld) 0.6 % Normal 0.0-2.0 [facility] Comment on above: Performed By: #### H EMDF, PT, BMP3M, PHOS3, MG3, CK3 #### [address] #### VD25H #### [facility] [address] [place] [address] Eosinophils #/vol (Bld) 0.2 10*3/uL Normal 0.0-0.5 [facility] Comment on above: Performed By: #### H EMDF, PT, BMP3M, PHOS3, MG3, CK3 #### [facility] [address] [place], [place] #### VD25H #### [facility] [address] [place] [address] Eosinophils/100 WBC (Bld) 0.9 % Low 1.0-6.0 [facility] Comment on above: Performed By: #### H EMDF, PT, BMP3M, PHOS3, MG3, CK3 #### [facility] [address] [place], [place] #### VD25H #### [facility] [address] [place] [address] Erythrocyte distribution width Ratio (RBC) 13.9 % Normal 11.5-14.5 [facility] Comment on above: Performed By: #### H EMDF, PT, BMP3M, PHOS3, MG3, CK3 #### [address] #### VD25H #### [facility] [address] [place] [address] Granulocytes/100 WBC (Bld) 88.8 % High 40.0-80.0 [facility] Comment on above: Performed By: #### H EMDF, PT, BMP3M, PHOS3, MG3, CK3 #### [address] #### VD25H #### [facility] [address] [place] [address] Hematocrit Volume Fraction (Bld) 31.6 % Low 40.0-52.0 [facility] Comment on above: Performed By: #### H EMDF, PT, BMP3M, PHOS3, MG3, CK3 #### [facility] [address] [place], [place] #### VD25H #### [facility] [address] [place] [address] Hemoglobin mass conc (Bld) 10.9 g/dL Low 13.0-18.0 [facility] Comment on above: Performed By: #### H EMDF, PT, BMP3M, PHOS3, MG3, CK3 #### [address] [place], [place] #### VD25H #### [facility] [address] [place] [place] [address] Lymphocytes #/vol (Bld) 1.1 10*3/uL Normal 1.0-4.3 [facility] Comment on above: Performed By: #### H EMDF, PT, BMP3M, PHOS3, MG3, CK3 #### [address] #### VD25H #### [facility] [address] [place] [place] [address] Lymphocytes/100 WBC (Bld) 6.2 % Low 20.0-40.0 [facility] Comment on above: Performed By: #### H EMDF, PT, BMP3M, PHOS3, MG3, CK3 #### [address] #### VD25H #### [facility] [address] [facility] [place] [address] MCH Entitic mass (RBC) 31.1 pg Normal 26.0-34.0 [facility] Comment on above: Performed By: #### H EMDF, PT, BMP3M, PHOS3, MG3, CK3 #### [address] #### VD25H #### [facility] [address] [place] [place] [address] MCHC mass conc (RBC) 34.6 % Normal 32.0-36.0 [facility] Comment on above: Performed By: #### H EMDF, PT, BMP3M, PHOS3, MG3, CK3 #### [address] #### VD25H #### [facility] [address] [facility] [place] [address] MCV Entitic volume (RBC) 89.9 fL Normal 80.0-98.0 [facility] Comment on above: Performed By: #### H EMDF, PT, BMP3M, PHOS3, MG3, CK3 #### [place] [address] [place], [place] #### VD25H #### [facility] [address] [place] [address] Monocytes #/vol (Bld) 0.6 10*3/uL Normal 0.0-0.8 [facility] Comment on above: Performed By: #### H EMDF, PT, BMP3M, PHOS3, MG3, CK3 #### [address] #### VD25H #### [facility] [address] [place] [address] Monocytes/100 WBC (Bld) 3.5 % Normal 2.0-10.0 [facility] Comment on above: Performed By: #### H EMDF, PT, BMP3M, PHOS3, MG3, CK3 #### [address] #### VD25H #### [facility] [address] [place] [address] Platelet mean volume Entitic volume (Bld) 7.9 fL Normal 7.4-10.4 [facility] Comment on above: Performed By: #### H EMDF, PT, BMP3M, PHOS3, MG3, CK3 #### [place] [address] [place], [place] #### VD25H #### [facility] [address] [place] [address] Platelets #/vol (Bld) 299 10*3/uL Normal 140-440 [facility] Comment on above: Performed By: #### H EMDF, PT, BMP3M, PHOS3, MG3, CK3 #### [address] #### VD25H #### [facility] [address] [place] [address] RBC #/vol (Bld) 3.52 10*6/uL Low 4.40-5.90 [facility] Comment on above: Performed By: #### H EMDF, PT, BMP3M, PHOS3, MG3, CK3 #### [address] #### VD25H #### [facility] [address] [place] [address] WBC #/vol (Bld) 17.1 10*3/uL High 3.6-10.7 [facility] Comment on above: Performed By: #### H EMDF, PT, BMP3M, PHOS3, MG3, CK3 #### [address] #### VD25H #### [place] [address] [place] [address] LDH, Body Fluidon 07-22-2018 LDH, Body Fluid 232 U/L Normal No Range [facility] Comment on above: Performed By: #### H EMDF, PT, BMP3M, PHOS3, MG3, CK3 #### [address] #### VD25H #### [place] [address] [place] [address] Magnesiumon 07-22-2018 Magnesium mass conc 2.6 mg/dL High 1.6-2.3 [facility] Comment on above: Performed By: #### H EMDF, PT, BMP3M, PHOS3, MG3, CK3 #### [address] #### VD25H #### [facility] [address] [place] [address] Medical Cytologyon 9 Medical Cytology [facility] [id number] DEPARTMENT OF PATHOLOGY AND [facility] LABORATORY MEDICINE [address] [place] [address] FINAL MEDICAL CYTOLOGY REPORT NAME: KATHYA HOOPER : 1955 63 Y M BILLING NO.: [id number] LOCATION: 1T2I T2 INPAT T209 PROCEDURE 07/22/2018 [...] characteristics determined by the clinical laboratories of [facility]. They have not been cleared by the [...] negativity on decalcified specimens. Case reviewed at [facility] [address] [place] [address]. DEPARTMENT OF PATHOLOGY AND LABORATORY MEDICINE [place], [place] Normal [facility] Phosphoruson 07-22-2018 Phosphate mass conc 4.6 mg/dL High 2.5-4.5 [facility] Comment on above: Performed By: #### H EMDF, PT, BMP3M, PHOS3, MG3, CK3 #### [facility] [address] [place], [place] #### VD25H #### [facility] [address] [place] [address] Procalcitoninon 07-22-2018 Protein mass conc 0.27 ng/mL Abnormal <0.10 [facility] Comment on above: Result Comment: (Cor rect ref.range is <0.09 ng/mL) Test performed: [place], [place]. Performed By: #### H EMDF, PT, BMP3M, PHOS3, MG3, CK3 #### [address] #### VD25H #### [facility] [address] [place] [address] Interpretation See Below Normal [facility] Comment on above: Result Comment: PCT <0.50 = Low risk of severe sepsis and/or septic shock. PCT >2.00 = High risk of severe sepsis and/or septic shock. Performed By: #### H EMDF, PT, BMP3M, PHOS3, MG3, CK3 #### [address] #### VD25H #### [facility] [address] [place] [address] STAIN ACID-FASTon 07-22-2018 STAIN ACID-FAST STAIN ACID-FAST --> Status: F No acid-fast bacilli seen in smear. - Method: AFB by Kinyoun Stain - Method: AFB by Kinyoun Stain Normal [facility] Comment on above: Performed By: #### H EMDF, PT, BMP3M, PHOS3, MG3, CK3 #### [facility] [address] [place] [address] #### VD25H #### [facility] [address] [place] [address] Triglycerideon 07-22-2018 Triglyceride mass conc 96 mg/dL Normal <150 [facility] Comment on above: Performed By: #### H EMDF, PT, BMP3M, PHOS3, MG3, CK3 #### [facility] [address] [place] [address] #### VD25H #### [facility] [address] [place] [address] US Thora-Aspir Pleura w/ Evelin geon 07-22-2018 US Thora-Aspir Pleura w/ Image Patient Name: KATHYA HOOPER Ultrasound Exam Date/Time 07/22/2018 14:23:28 EDT Exam US Thora-Aspir Pleura w/ Image Ordering Physician MARIA EUGENIA PEREZ Accession Number [id number] CPT4 Codes 41466 () Reason For Exam L thoracentesis Report Reasons for examination: Left pleural effusion. Respiratory insufficiency. Ultrasound was performed of the left hemithorax, localizing the pleural fluid. After obtaining informed consent, sterile preparation, draping, and local anesthetic administration, thoracentesis was performed under direct ultrasonographic guidance with a 5 Portuguese Yueh needle/catheter. A total of 300 mL [...] Transcribed Date and Time: 07/22/2018 2:55 Normal [facility] pH,Misc Body Fluidon 019 pH,Misc 7.996 Normal None Available [facility] Comment on above: Performed By: #### H EMDF, PT, BMP3M, PHOS3, MG3, CK3 #### [facility] [address] [place] [address] #### VD25H #### [facility] [address] [place] [address] Arterial Blood Gaseson 07-21 CO2 molar conc 29.8 mmol/L High 23.0-27.0 [facility] Comment on above: Performed By: #### T SGL #### [facility] [address] [place] [address] HCO3 molar conc (Bld) 28.7 mmol/L High 21.0-25.0 [facility] Comment on above: Performed By: #### T SGL #### [address] [place] [address] Hemoglobin mass conc (Bld) 11.7 g/dL Normal ScreenOnly [facility] Comment on above: Performed By: #### T SGL #### [facility] [address] [place] [address] Oxygen ppres (Bld) 144.9 mm[Hg] High 80.0-100.0 [facility] Comment on above: Performed By: #### T SGL #### [facility] [address] [place] [address] Oxygen saturation in Blood 98.4 % Normal 95.0-100.0 [facility] Comment on above: Performed By: #### T SGL #### [facility] [address] [place] [address] pCO2 36.8 mm[Hg] Normal 35.0-45.0 [facility] Comment on above: Performed By: #### T SGL #### [facility] [address] [place] [address] pH (Bld) 7.510 High 7.350-7.450 [facility] Comment on above: Performed By: #### T SGL #### [address] [place] [address] Std Base Excess 5.5 mmol/L High -3.0-3.0 [facility] Comment on above: Performed By: #### T SGL #### [facility] [address] [place] [address] FIO2 .50 Normal [facility] Comment on above: Performed By: #### T SGL #### [facility] [address] [place] [address] CR Abdomen APon 07-21-2018 CR Abdomen AP Patient Name: KATHYA HOOPER Diagnostic Radiology Exam Date/Time 07/21/2018 06:41:07 EDT Exam CR Abdomen AP Ordering Physician JOYA ROJAS Accession Number [id number] CPT4 Codes 85641 () Reason For Exam ileus Report Reason [...] Transcribed Date and Time: 07/21/2018 7:23 Normal [facility] CR Chest Portableon 07-22-19 19 CR Chest Portable Patient Name: KATHYA HOOPER Diagnostic Radiology Exam Date/Time 07/21/2018 06:40:50 EDT Exam CR Chest Portable Ordering Physician MARIA EUGENIA PEREZ Accession Number [id number] CPT4 Codes 66580 () Reason For Exam ETT placement Report [...] Transcribed Date and Time: 07/21/2018 5:38 Normal [facility] CR Chest Portable Patient Name: KATHYA HOOPER Diagnostic Radiology Exam Date/Time 07/21/2018 01:11:50 EDT Exam CR Chest Portable Ordering Physician MD GRIFFIN NICHOLAS Accession Number [id number] CPT4 Codes 47152 () Reason For Exam s/p bronch Report [...] Transcribed Date and Time: 07/21/2018 1:26 Normal [facility] Comp Metabolic Panelon 07-21 Calcium mass conc 7.9 mg/dL Low 8.4-10.4 [facility] Comment on above: Performed By: #### T SGL #### [facility] [address] [place] [address] ALP enzyme act/vol 85 U/L Normal 38-126 [facility] Comment on above: Performed By: #### T SGL #### [facility] [address] [place] [address] ALT enzyme act/vol 105 U/L High 13-69 [facility] Comment on above: Performed By: #### T SGL #### [facility] [address] [place] [facility] [address] Anion gap molar conc 8 Normal [facility] Comment on above: Performed By: #### T SGL #### [facility] [address] [place] [address] AST enzyme act/vol 78 U/L High 15-46 [facility] Comment on above: Performed By: #### T SGL #### [facility] [address] [place] [address] Bilirubin mass conc 1.1 mg/dL Normal 0.2-1.3 [facility] Comment on above: Performed By: #### T SGL #### [facility] [address] [place] [address] CO2 molar conc 33 mmol/L High 22-30 [facility] Comment on above: Performed By: #### T SGL #### [facility] [address] [place] [address] Creatinine mass conc 0.90 mg/dL Normal 0.52-1.25 [facility] Comment on above: Performed By: #### T SGL #### [facility] [address] [place] [address] GFR/1.73 sq M predicted among blacks MDRD vol rate/area (S/P/Bld) mL/min/{1.73_m2} Normal >60 [facility] Comment on above: Performed By: #### T SGL #### [facility] [address] [place] [address] GFR/1.73 sq M predicted among non-blacks MDRD vol rate/area (S/P/Bld) mL/min/{1.73_m2} Normal >60 [facility] Comment on above: Result Comment: Sour ce- MDRD equation with creatinine calibration to IDMS(NKDEP) eGFR not recommended for drug dose adjustment Performed By: #### T SGL #### [address] [place] [address] Glucose mass conc 113 mg/dL High 70-100 [facility] Comment on above: Performed By: #### T SGL #### [address] [place] [address] Protein mass conc 5.6 g/dL Low 6.3-8.2 [facility] Comment on above: Performed By: #### T SGL #### [address] [place] [address] Urea nitrogen mass conc 28 mg/dL High 7-20 [facility] Comment on above: Performed By: #### T SGL #### [address] [place] [address] Chloride molar conc 104 mmol/L Normal 98-107 [facility] Comment on above: Performed By: #### T SGL #### [address] [place] [address] Potassium molar conc 3.6 mmol/L Normal 3.5-5.1 [facility] Comment on above: Performed By: #### T SGL #### [address] [place] [address] Sodium molar conc 145 mmol/L Normal 135-145 [facility] Comment on above: Performed By: #### T SGL #### [place] [address] [place] [address] Albumin mass conc 2.8 g/dL Low 3.5-5.0 [facility] Comment on above: Performed By: #### T SGL #### [address] [place] [address] Glucose,Bedsideon 07-21-2018 Glucose mass conc 124 mg/dL High 70-100 [facility] Comment on above: Result Comment: Test performed by glucose meter. Results may be 10%-15% lower than serum/plasma values. (CLIA ID [id number]) Performed By: #### H EMDF, PT, BMP3M, PHOS3, MG3, CK3 #### [employer] [address] [place] [address] #### VD25H #### [employer] [facility] [address] [place] [address] Glucose mass conc 151 mg/dL High 70-100 [facility] Comment on above: Result Comment: Test performed by glucose meter. Results may be 10%-15% lower than serum/plasma values. (CLIA ID [id number]) Performed By: #### H EMDF, PT, BMP3M, PHOS3, MG3, CK3 #### [employer] [address] [place] [address] #### VD25H #### [employer] [address] [place] [address] Glucose mass conc 127 mg/dL High 70-100 [facility] Comment on above: Result Comment: Test performed by glucose meter. Results may be 10%-15% lower than serum/plasma values. (CLIA ID [id number]) Performed By: #### T SGL #### [employer] [place] [address] Glucose mass conc 113 mg/dL High 70-100 [facility] Comment on above: Result Comment: Test performed by glucose meter. Results may be 10%-15% lower than serum/plasma values. (CLIA ID [id number]) Performed By: #### A DDON #### [employer] [address] [place] [address] Hemogram w/ Autodiffon 07-21 Abs Baso Cnt 0.1 10*3/uL Normal 0.0-0.2 [facility] Comment on above: Performed By: #### T SGL #### [facility] [address] [place] [address] Abs Neutrophile Cnt 11.0 10*3/uL High 1.8-7.0 [facility] Comment on above: Performed By: #### T SGL #### [address] [place] [address] Basophils/100 WBC (Bld) 0.5 % Normal 0.0-2.0 [facility] Comment on above: Performed By: #### T SGL #### [address] [place] [address] Eosinophils #/vol (Bld) 0.3 10*3/uL Normal 0.0-0.5 [facility] Comment on above: Performed By: #### T SGL #### [address] [place] [address] Eosinophils/100 WBC (Bld) 1.9 % Normal 1.0-6.0 [facility] Comment on above: Performed By: #### T SGL #### [address] [place] [address] Erythrocyte distribution width Ratio (RBC) 13.7 % Normal 11.5-14.5 [facility] Comment on above: Performed By: #### T SGL #### [address] [place] [address] Granulocytes/100 WBC (Bld) 81.0 % High 40.0-80.0 [facility] Comment on above: Performed By: #### T SGL #### [address] [place] [address] Hematocrit Volume Fraction (Bld) 32.1 % Low 40.0-52.0 [facility] Comment on above: Performed By: #### T SGL #### [address] [place] [address] Hemoglobin mass conc (Bld) 10.7 g/dL Low 13.0-18.0 [facility] Comment on above: Performed By: #### T SGL #### [address] [place] [address] Lymphocytes #/vol (Bld) 1.3 10*3/uL Normal 1.0-4.3 [facility] Comment on above: Performed By: #### T SGL #### [address] [place] [address] Lymphocytes/100 WBC (Bld) 9.8 % Low 20.0-40.0 [facility] Comment on above: Performed By: #### T SGL #### [facility] [address] [place] [address] MCH Entitic mass (RBC) 29.0 pg Normal 26.0-34.0 [facility] Comment on above: Performed By: #### T SGL #### [address] [place] [address] MCHC mass conc (RBC) 33.4 % Normal 32.0-36.0 [facility] Comment on above: Performed By: #### T SGL #### [address] [place] [address] MCV Entitic volume (RBC) 86.9 fL Normal 80.0-98.0 [facility] Comment on above: Performed By: #### T SGL #### [address] [place] [address] Monocytes #/vol (Bld) 0.9 10*3/uL High 0.0-0.8 [facility] Comment on above: Performed By: #### T SGL #### [address] [place] [address] Monocytes/100 WBC (Bld) 6.8 % Normal 2.0-10.0 [facility] Comment on above: Performed By: #### T SGL #### [address] [place] [address] Platelet mean volume Entitic volume (Bld) 7.4 fL Normal 7.4-10.4 [facility] Comment on above: Performed By: #### T SGL #### [address] [place] [address] Platelets #/vol (Bld) 367 10*3/uL Normal 140-440 [facility] Comment on above: Performed By: #### T SGL #### [address] [place] [address] RBC #/vol (Bld) 3.69 10*6/uL Low 4.40-5.90 [facility] Comment on above: Performed By: #### T SGL #### [address] [place] [address] WBC #/vol (Bld) 13.6 10*3/uL High 3.6-10.7 [facility] Comment on above: Performed By: #### T SGL #### [address] [place] [address] Magnesiumon 07-21-2018 Magnesium mass conc 2.6 mg/dL High 1.6-2.3 [facility] Comment on above: Performed By: #### T SGL #### [address] [place] [address] Phosphoruson 07-21-2018 Phosphate mass conc 4.2 mg/dL Normal 2.5-4.5 [facility] Comment on above: Performed By: #### T SGL #### [address] [place] [address] Triglycerideon 07-21-2018 Triglyceride mass conc 105 mg/dL Normal <150 [facility] Comment on above: Performed By: #### T SGL #### [address] [place] [address] Add on test from HISon 07-20 Add on test from HIS Accepted Normal [facility] Comment on above: Result Comment: Spec imen available & acceptable for analysis. Performed By: #### A DDON #### [address] [place] [address] Basic Metabolic Panelon 06-30 Calcium mass conc 7.7 mg/dL Low 8.4-10.4 [facility] Comment on above: Performed By: #### A DDON #### [address] [place] [address] Glucose mass conc 96 mg/dL Normal 70-100 [facility] Comment on above: Performed By: #### A DDON #### [address] [place] [address] Urea nitrogen mass conc 22 mg/dL High 7-20 [facility] Comment on above: Performed By: #### A DDON #### [facility] [address] [facility] [place] [address] Anion gap molar conc 10 Normal [facility] Comment on above: Performed By: #### A DDON #### [facility] [address] [place] [address] CO2 molar conc 29 mmol/L Normal 22-30 [facility] Comment on above: Performed By: #### A DDON #### [facility] [address] [place] [address] Creatinine mass conc 0.87 mg/dL Normal 0.52-1.25 [facility] Comment on above: Performed By: #### A DDON #### [facility] [address] [facility] [place] [address] GFR/1.73 sq M predicted among blacks MDRD vol rate/area (S/P/Bld) mL/min/{1.73_m2} Normal >60 [facility] Comment on above: Performed By: #### A DDON #### [facility] [address] [facility] [place] [address] GFR/1.73 sq M predicted among non-blacks MDRD vol rate/area (S/P/Bld) mL/min/{1.73_m2} Normal >60 [facility] Comment on above: Result Comment: Sour ce- MDRD equation with creatinine calibration to IDMS(NKDEP) eGFR not recommended for drug dose adjustment Performed By: #### A DDON #### [facility] [address] [facility] [place] [address] Potassium molar conc 3.6 mmol/L Normal 3.5-5.1 [facility] Comment on above: Performed By: #### A DDON #### [facility] [address] [place] [address] Chloride molar conc 105 mmol/L Normal 98-107 [facility] Comment on above: Performed By: #### A DDON #### [facility] [address] [place], [place] Sodium molar conc 144 mmol/L Normal 135-145 [facility] Comment on above: Performed By: #### A DDON #### [address] [place] CR Abdomen APon 07-20-2018 CR Abdomen AP Patient Name: KATHYA HOOPER Diagnostic Radiology Exam Date/Time 07/20/2018 08:39:45 EDT Exam CR Abdomen AP Ordering Physician JOYA ROJAS Accession Number [id number] CPT4 Codes 70833 () Reason For Exam ileus Report Clinical [...] Transcribed Date and Time: 07/20/2018 9:29 Normal [facility] CR Chest Portableon 07-21-19 19 CR Chest Portable Patient Name: KATHYA HOOPER Diagnostic Radiology Exam Date/Time 07/20/2018 08:39:26 EDT Exam CR Chest Portable Ordering Physician MARIA EUGENIA PEREZ Accession Number [id number] CPT4 Codes 56089 () Reason For Exam ETT placement Report [...] Transcribed Date and Time: 07/20/2018 9:28 Normal [facility] CT Abdomen/Pelvis w/ Contras ton 07-20-2018 CT Abdomen/Pelvis w/ Contrast Patient Name: KATHYA HOOPER CT Exam Date/Time 07/20/2018 11:30:[address] Abdomen/Pelvis w/ IV Contrast (IV Onl Ordering Physician [id number] JOYA PERRY Accession Number [id number] CPT4 Codes 52144 (CT Abdomen/Pelvis w/ IV Contrast (IV Onl) [...] Transcribed Date and Time: 07/20/2018 1:10 Normal [facility] CT Chest w/ Contraston 07-20 CT Chest w/ Contrast Patient Name: KATHYA RAY CT Exam Date/Time 07/20/2018 11:30:[address] Chest w/ Contrast Ordering Physician [id number] THAKKAR Accession Number [id number] CPT4 Codes 12284 (), Q9967 (CT ISOVUE 370MG/[id number]) Reason For Exam SOB, possible pneumonia Report [...] Transcribed Date and Time: 07/20/2018 1:28 Normal [facility] Glucose,Bedsideon 07-20-2018 Glucose mass conc 128 mg/dL High 70-100 [facility] Comment on above: Result Comment: Test performed by glucose meter. Results may be 10%-15% lower than serum/plasma values. (CLIA ID [id number]) Performed By: #### A DDON #### [address] Hemogram w/ Autodiffon 07-20 Abs Baso Cnt 0.1 10*3/uL Normal 0.0-0.2 [facility] Comment on above: Performed By: #### H EMDF, PT, BMP3M, PHOS3, MG3, CK3 #### [address] #### VD25H #### [facility] [address] [place] [address] Abs Neutrophile Cnt 13.0 10*3/uL High 1.8-7.0 [facility] Comment on above: Performed By: #### H EMDF, PT, BMP3M, PHOS3, MG3, CK3 #### [address] #### VD25H #### [facility] [address] [place] [address] Basophils/100 WBC (Bld) 0.3 % Normal 0.0-2.0 [facility] Comment on above: Performed By: #### H EMDF, PT, BMP3M, PHOS3, MG3, CK3 #### [address] #### VD25H #### [facility] [address] [place] [address] Eosinophils #/vol (Bld) 0.3 10*3/uL Normal 0.0-0.5 [facility] Comment on above: Performed By: #### H EMDF, PT, BMP3M, PHOS3, MG3, CK3 #### [address] #### VD25H #### [facility] [address] [place] [place] [address] Eosinophils/100 WBC (Bld) 1.9 % Normal 1.0-6.0 [facility] Comment on above: Performed By: #### H EMDF, PT, BMP3M, PHOS3, MG3, CK3 #### [address] #### VD25H #### [facility] [address] [place] [address] Erythrocyte distribution width Ratio (RBC) 13.3 % Normal 11.5-14.5 [facility] Comment on above: Performed By: #### H EMDF, PT, BMP3M, PHOS3, MG3, CK3 #### [address] #### VD25H #### [facility] [address] [place] [address] Granulocytes/100 WBC (Bld) 81.8 % High 40.0-80.0 [facility] Comment on above: Performed By: #### H EMDF, PT, BMP3M, PHOS3, MG3, CK3 #### [address] #### VD25H #### [facility] [address] [place] [address] Hematocrit Volume Fraction (Bld) 33.6 % Low 40.0-52.0 [facility] Comment on above: Performed By: #### H EMDF, PT, BMP3M, PHOS3, MG3, CK3 #### [address] #### VD25H #### [facility] [address] [place] [address] Hemoglobin mass conc (Bld) 11.4 g/dL Low 13.0-18.0 [facility] Comment on above: Performed By: #### H EMDF, PT, BMP3M, PHOS3, MG3, CK3 #### [address] #### VD25H #### [facility] [address] [place] [place] [address] Lymphocytes #/vol (Bld) 1.5 10*3/uL Normal 1.0-4.3 [facility] Comment on above: Performed By: #### H EMDF, PT, BMP3M, PHOS3, MG3, CK3 #### [address] [place], [place] #### VD25H #### [facility] [address] [place] [address] Lymphocytes/100 WBC (Bld) 9.2 % Low 20.0-40.0 [facility] Comment on above: Performed By: #### H EMDF, PT, BMP3M, PHOS3, MG3, CK3 #### [address] #### VD25H #### [facility] [address] [facility] [place] [address] MCH Entitic mass (RBC) 29.3 pg Normal 26.0-34.0 [facility] Comment on above: Performed By: #### H EMDF, PT, BMP3M, PHOS3, MG3, CK3 #### [address] #### VD25H #### [facility] [address] [place] [address] MCHC mass conc (RBC) 33.9 % Normal 32.0-36.0 [facility] Comment on above: Performed By: #### H EMDF, PT, BMP3M, PHOS3, MG3, CK3 #### [address] #### VD25H #### [facility] [address] [facility] [place] [address] MCV Entitic volume (RBC) 86.5 fL Normal 80.0-98.0 [facility] Comment on above: Performed By: #### H EMDF, PT, BMP3M, PHOS3, MG3, CK3 #### [address] #### VD25H #### [facility] [address] [place] [place] [address] Monocytes #/vol (Bld) 1.1 10*3/uL High 0.0-0.8 [facility] Comment on above: Performed By: #### H EMDF, PT, BMP3M, PHOS3, MG3, CK3 #### [facility] [address] [place] #### VD25H #### [facility] [address] [place] [address] Monocytes/100 WBC (Bld) 6.8 % Normal 2.0-10.0 [facility] Comment on above: Performed By: #### H EMDF, PT, BMP3M, PHOS3, MG3, CK3 #### [address] [place], [place] #### VD25H #### [facility] [address] [place] [address] Platelet mean volume Entitic volume (Bld) 7.5 fL Normal 7.4-10.4 [facility] Comment on above: Performed By: #### H EMDF, PT, BMP3M, PHOS3, MG3, CK3 #### [address] [place], [place] #### VD25H #### [facility] [address] [place] [address] Platelets #/vol (Bld) 375 10*3/uL Normal 140-440 [facility] Comment on above: Performed By: #### H EMDF, PT, BMP3M, PHOS3, MG3, CK3 #### [address] [place] #### VD25H #### [facility] [address] [place] [address] RBC #/vol (Bld) 3.88 10*6/uL Low 4.40-5.90 [facility] Comment on above: Performed By: #### H EMDF, PT, BMP3M, PHOS3, MG3, CK3 #### [address] #### VD25H #### [facility] [address] [place] [address] WBC #/vol (Bld) 15.9 10*3/uL High 3.6-10.7 [facility] Comment on above: Performed By: #### H EMDF, PT, BMP3M, PHOS3, MG3, CK3 #### [address] [place], [place] #### VD25H #### [facility] [address] [place] [address] Phosphoruson 07-20-2018 Phosphate mass conc 5.5 mg/dL High 2.5-4.5 [facility] Comment on above: Performed By: #### A DDON #### [address] [address] [place] Add on test from HISon 07-19 Add on test from HIS Accepted Normal [facility] Comment on above: Result Comment: Spec imen available & acceptable for analysis. Performed By: #### H EMDF, PT, BMP3M, PHOS3, MG3, CK3 #### [address] #### VD25H #### [facility] [address] [place] [address] Arterial Blood Gaseson 07-19 CO2 molar conc 31.5 mmol/L High 23.0-27.0 [facility] Comment on above: Performed By: #### H EMDF, PT, BMP3M, PHOS3, MG3, CK3 #### [address] [place], [place] #### VD25H #### [facility] [address] [place] [address] HCO3 molar conc (Bld) 30.2 mmol/L High 21.0-25.0 [facility] Comment on above: Performed By: #### H EMDF, PT, BMP3M, PHOS3, MG3, CK3 #### [address] #### VD25H #### [facility] [address] [place] [address] Hemoglobin mass conc (Bld) 11.7 g/dL Normal ScreenOnly [facility] Comment on above: Performed By: #### H EMDF, PT, BMP3M, PHOS3, MG3, CK3 #### [facility] [address] [place], [place] #### VD25H #### [facility] [address] [place] [address] Oxygen ppres (Bld) 85.1 mm[Hg] Normal 80.0-100.0 [facility] Comment on above: Performed By: #### H EMDF, PT, BMP3M, PHOS3, MG3, CK3 #### [address] [address] [place] #### VD25H #### [facility] [address] [place] [address] Oxygen saturation in Blood 95.9 % Normal 95.0-100.0 [facility] Comment on above: Performed By: #### H EMDF, PT, BMP3M, PHOS3, MG3, CK3 #### [address] #### VD25H #### [facility] [address] [place] [address] pCO2 43.6 mm[Hg] Normal 35.0-45.0 [facility] Comment on above: Performed By: #### H EMDF, PT, BMP3M, PHOS3, MG3, CK3 #### [facility] [address] [place] #### VD25H #### [facility] [address] [place] [address] pH (Bld) 7.458 High 7.350-7.450 [facility] Comment on above: Performed By: #### H EMDF, PT, BMP3M, PHOS3, MG3, CK3 #### [address] #### VD25H #### [facility] [address] [place] [address] Std Base Excess 5.7 mmol/L High -3.0-3.0 [facility] Comment on above: Performed By: #### H EMDF, PT, BMP3M, PHOS3, MG3, CK3 #### [facility] [address] [place] #### VD25H #### [facility] [address] [place] [address] FIO2 40% Normal [facility] Comment on above: Performed By: #### H EMDF, PT, BMP3M, PHOS3, MG3, CK3 #### [address] [address] [place], [place] #### VD25H #### [facility] [address] [place] [address] Basic Metabolic Panelon 03-2 Calcium mass conc 7.5 mg/dL Low 8.4-10.4 [facility] Comment on above: Performed By: #### H EMDF, PT, BMP3M, PHOS3, MG3, CK3 #### [address] [address] [address] [place], [place] #### VD25H #### [facility] [address] [place] [address] Glucose mass conc 274 mg/dL High 70-100 [facility] Comment on above: Performed By: #### H EMDF, PT, BMP3M, PHOS3, MG3, CK3 #### [address] [address] [address] [place], [place] #### VD25H #### [facility] [address] [place] [address] Anion gap molar conc 6 Normal [facility] Comment on above: Performed By: #### H EMDF, PT, BMP3M, PHOS3, MG3, CK3 #### [address] [address] [address] [place] #### VD25H #### [facility] [address] [place] [address] CO2 molar conc 31 mmol/L High 22-30 [facility] Comment on above: Performed By: #### H EMDF, PT, BMP3M, PHOS3, MG3, CK3 #### [address] [address] #### VD25H #### [facility] [address] [place] [address] Creatinine mass conc 0.64 mg/dL Normal 0.52-1.25 [facility] Comment on above: Performed By: #### H EMDF, PT, BMP3M, PHOS3, MG3, CK3 #### [address] #### VD25H #### [facility] [address] [place] [address] GFR/1.73 sq M predicted among blacks MDRD vol rate/area (S/P/Bld) mL/min/{1.73_m2} Normal >60 [facility] Comment on above: Performed By: #### H EMDF, PT, BMP3M, PHOS3, MG3, CK3 #### [address] [address] #### VD25H #### [facility] [address] [place] [address] GFR/1.73 sq M predicted among non-blacks MDRD vol rate/area (S/P/Bld) mL/min/{1.73_m2} Normal >60 [facility] Comment on above: Result Comment: Sour ce- MDRD equation with creatinine calibration to IDMS(NKDEP) eGFR not recommended for drug dose adjustment Performed By: #### H EMDF, PT, BMP3M, PHOS3, MG3, CK3 #### [address] [address] #### VD25H #### [facility] [address] [place] [address] Urea nitrogen mass conc 15 mg/dL Normal 7-20 [facility] Comment on above: Performed By: #### H EMDF, PT, BMP3M, PHOS3, MG3, CK3 #### [facility] [address] [place] [address] #### VD25H #### [facility] [address] [place] [address] Chloride molar conc 105 mmol/L Normal 98-107 [facility] Comment on above: Performed By: #### H EMDF, PT, BMP3M, PHOS3, MG3, CK3 #### [facility] [address] [facility] [place] [address] #### VD25H #### [facility] [address] [place] [address] Potassium molar conc 4.3 mmol/L Normal 3.5-5.1 [facility] Comment on above: Performed By: #### H EMDF, PT, BMP3M, PHOS3, MG3, CK3 #### [address] [address] [address] [facility] [place] [address] #### VD25H #### [facility] [address] [place] [address] Sodium molar conc 141 mmol/L Normal 135-145 [facility] Comment on above: Performed By: #### H EMDF, PT, BMP3M, PHOS3, MG3, CK3 #### [facility] [address] [facility] [place] [address] #### VD25H #### [facility] [address] [place] [address] CR Abdomen APon 07-19-2018 CR Abdomen AP Patient Name: KATHYA HOOPER Diagnostic Radiology Exam Date/Time 07/19/2018 06:44:12 EDT Exam CR Abdomen AP Ordering Physician JOYA ROJAS Accession Number [id number] CPT4 Codes 27178 () Reason For Exam ileus Report Abdomen: [...] Transcribed Date and Time: 07/19/2018 7:46 Normal [facility] CR Chest Portableon 07-20-19 19 CR Chest Portable Patient Name: KATHYA HOOPRE Diagnostic Radiology Exam Date/Time 07/19/2018 06:43:52 EDT Exam CR Chest Portable Ordering Physician MARIA EUGENIA PEREZ Accession Number [id number] CPT4 Codes 07547 () Reason For Exam ETT placement Report [...] Transcribed Date and Time: 07/19/2018 7:44 Normal [facility] Glucose,Bedsideon 07-19-2018 Glucose mass conc 95 mg/dL Normal 70-100 [facility] Comment on above: Result Comment: Test performed by glucose meter. Results may be 10%-15% lower than serum/plasma values. (CLIA ID [id number]) Performed By: #### H EMDF, PT, BMP3M, PHOS3, MG3, CK3 #### [facility] [address] [place] [address] #### VD25H #### [facility] [address] [place] [address] Hemogram w/ Autodiffon 07-19 Abs Baso Cnt 0.1 10*3/uL Normal 0.0-0.2 [facility] Comment on above: Performed By: #### H EMDF, PT, BMP3M, PHOS3, MG3, CK3 #### [address] [address] #### VD25H #### [facility] [address] [place] [address] Abs Neutrophile Cnt 9.8 10*3/uL High 1.8-7.0 [facility] Comment on above: Performed By: #### H EMDF, PT, BMP3M, PHOS3, MG3, CK3 #### [address] #### VD25H #### [place] [address] [place] [address] Basophils/100 WBC (Bld) 0.5 % Normal 0.0-2.0 [facility] Comment on above: Performed By: #### H EMDF, PT, BMP3M, PHOS3, MG3, CK3 #### [address] #### VD25H #### [place] [address] [place] [address] Eosinophils #/vol (Bld) 0.3 10*3/uL Normal 0.0-0.5 [facility] Comment on above: Performed By: #### H EMDF, PT, BMP3M, PHOS3, MG3, CK3 #### [address] #### VD25H #### [place] [address] [place] [address] Eosinophils/100 WBC (Bld) 2.5 % Normal 1.0-6.0 [facility] Comment on above: Performed By: #### H EMDF, PT, BMP3M, PHOS3, MG3, CK3 #### [address] [place] #### VD25H #### [facility] [address] [place] [address] Erythrocyte distribution width Ratio (RBC) 13.3 % Normal 11.5-14.5 [facility] Comment on above: Performed By: #### H EMDF, PT, BMP3M, PHOS3, MG3, CK3 #### [address] #### VD25H #### [facility] [address] [place] [address] Granulocytes/100 WBC (Bld) 80.4 % High 40.0-80.0 [facility] Comment on above: Performed By: #### H EMDF, PT, BMP3M, PHOS3, MG3, CK3 #### [address] #### VD25H #### [facility] [address] [place] [address] Hematocrit Volume Fraction (Bld) 30.6 % Low 40.0-52.0 [facility] Comment on above: Performed By: #### H EMDF, PT, BMP3M, PHOS3, MG3, CK3 #### [address] #### VD25H #### [facility] [address] [place] [address] Hemoglobin mass conc (Bld) 10.5 g/dL Low 13.0-18.0 [facility] Comment on above: Performed By: #### H EMDF, PT, BMP3M, PHOS3, MG3, CK3 #### [address] #### VD25H #### [facility] [address] [place] [address] Lymphocytes #/vol (Bld) 1.1 10*3/uL Normal 1.0-4.3 [facility] Comment on above: Performed By: #### H EMDF, PT, BMP3M, PHOS3, MG3, CK3 #### [address] [place], [place] #### VD25H #### [facility] [address] [place] [address] Lymphocytes/100 WBC (Bld) 9.1 % Low 20.0-40.0 [facility] Comment on above: Performed By: #### H EMDF, PT, BMP3M, PHOS3, MG3, CK3 #### [address] [address] [address] [place] #### VD25H #### [facility] [address] [place] [address] MCH Entitic mass (RBC) 29.7 pg Normal 26.0-34.0 [facility] Comment on above: Performed By: #### H EMDF, PT, BMP3M, PHOS3, MG3, CK3 #### [address] #### VD25H #### [facility] [address] [place] [address] MCHC mass conc (RBC) 34.3 % Normal 32.0-36.0 [facility] Comment on above: Performed By: #### H EMDF, PT, BMP3M, PHOS3, MG3, CK3 #### [address] #### VD25H #### [facility] [address] [place] [address] MCV Entitic volume (RBC) 86.7 fL Normal 80.0-98.0 [facility] Comment on above: Performed By: #### H EMDF, PT, BMP3M, PHOS3, MG3, CK3 #### [address] #### VD25H #### [facility] [address] [place] [address] Monocytes #/vol (Bld) 0.9 10*3/uL High 0.0-0.8 [facility] Comment on above: Performed By: #### H EMDF, PT, BMP3M, PHOS3, MG3, CK3 #### [facility] [address] [place] #### VD25H #### [facility] [address] [place] [address] Monocytes/100 WBC (Bld) 7.5 % Normal 2.0-10.0 [facility] Comment on above: Performed By: #### H EMDF, PT, BMP3M, PHOS3, MG3, CK3 #### [address] [place] #### VD25H #### [facility] [address] [place] [address] Platelet mean volume Entitic volume (Bld) 7.3 fL Low 7.4-10.4 [facility] Comment on above: Performed By: #### H EMDF, PT, BMP3M, PHOS3, MG3, CK3 #### [address] [address] [address] [place] #### VD25H #### [facility] [address] [place] [address] Platelets #/vol (Bld) 329 10*3/uL Normal 140-440 [facility] Comment on above: Performed By: #### H EMDF, PT, BMP3M, PHOS3, MG3, CK3 #### [address] #### VD25H #### [facility] [address] [place] [address] RBC #/vol (Bld) 3.53 10*6/uL Low 4.40-5.90 [facility] Comment on above: Performed By: #### H EMDF, PT, BMP3M, PHOS3, MG3, CK3 #### [address] [place] #### VD25H #### [facility] [address] [place] [address] WBC #/vol (Bld) 12.2 10*3/uL High 3.6-10.7 [facility] Comment on above: Performed By: #### H EMDF, PT, BMP3M, PHOS3, MG3, CK3 #### [address] [address] [place] #### VD25H #### [facility] [address] [place] [address] Magnesiumon 07-19-2018 Magnesium mass conc 2.3 mg/dL Normal 1.6-2.3 [facility] Comment on above: Performed By: #### H EMDF, PT, BMP3M, PHOS3, MG3, CK3 #### [address] #### VD25H #### [facility] [address] [facility] [place] [address] Procalcitoninon 07-19-2018 Protein mass conc 0.15 ng/mL Abnormal <0.10 [facility] Comment on above: Performed By: #### H EMDF, PT, BMP3M, PHOS3, MG3, CK3 #### [address] #### VD25H #### [facility] [address] [place] [address] Interpretation See Below Normal [facility] Comment on above: Result Comment: PCT <0.50 = Low risk of severe sepsis and/or septic shock. PCT >2.00 = High risk of severe sepsis and/or septic shock. Performed By: #### H EMDF, PT, BMP3M, PHOS3, MG3, CK3 #### [address] #### VD25H #### [facility] [address] [place] [address] VL Venous Duplex US Lower Ex t Bilateralon 07-19-2018 VL Venous Duplex US Lower Ext Bilateral Patient Name: KATHYA HOOPER Ultrasound Exam Date/Time 07/19/2018 11:10:14 EDT Exam VL Venous Duplex US Lower Ext Bilateral Ordering Physician ETIENNE MARTÍNEZ JULIE Accession Number [id number] CPT4 Codes 40216 () Reason For Exam edema Report [facility] --- Lower Extremity Venous Duplex Report Patient Name: Kathya Hooper : 1955 Study Date: 07/19/2018 W (63yrs) Age: 63 Account: [id number] Gender: M Loc: T209 BP: Ordering: Yesenia Martínez Technologist: Ordering Physician: Yesenia Martínez Internet Marketing Assistant: León Chaidez [facility] Interpreting Physician: Ricardo Hall MD --- Location: [facility] --- INDICATIONS: Edema. bilateral calf edema. [...] performed. The images were obtained using a [employer] E9 vascular ultrasound machine. --- VENOUS FLOW [...] --+ Electronically signed by: Ricardo Hall MD [id number] Final Dictated: 07/20/2018 10:49 am Dictating Physician: RICARDO HALL Signed Date and Time: 07/19/2018 11:03 am Signed by: RICARDO HALL Normal [facility] Basic Metabolic Panelon 03-2 Calcium mass conc 7.9 mg/dL Low 8.4-10.4 [facility] Comment on above: Performed By: #### H EMDF, PT, BMP3M, PHOS3, MG3, CK3 #### [facility] [address] [place] [address] #### VD25H #### [facility] [address] [place] [address] Glucose mass conc 113 mg/dL High 70-100 [facility] Comment on above: Performed By: #### H EMDF, PT, BMP3M, PHOS3, MG3, CK3 #### [address] [address] [address] [place] #### VD25H #### [facility] [address] [place] [address] Anion gap molar conc 7 Normal [facility] Comment on above: Performed By: #### H EMDF, PT, BMP3M, PHOS3, MG3, CK3 #### [address] [address] [place] #### VD25H #### [facility] [address] [place] [address] CO2 molar conc 31 mmol/L High 22-30 [facility] Comment on above: Performed By: #### H EMDF, PT, BMP3M, PHOS3, MG3, CK3 #### [address] #### VD25H #### [facility] [address] [place] [address] Creatinine mass conc 0.59 mg/dL Normal 0.52-1.25 [facility] Comment on above: Performed By: #### H EMDF, PT, BMP3M, PHOS3, MG3, CK3 #### [address] #### VD25H #### [facility] [address] [place] [address] GFR/1.73 sq M predicted among blacks MDRD vol rate/area (S/P/Bld) mL/min/{1.73_m2} Normal >60 [facility] Comment on above: Performed By: #### H EMDF, PT, BMP3M, PHOS3, MG3, CK3 #### [address] [place] #### VD25H #### [facility] [address] [place] [address] GFR/1.73 sq M predicted among non-blacks MDRD vol rate/area (S/P/Bld) mL/min/{1.73_m2} Normal >60 [facility] Comment on above: Result Comment: Sour ce- MDRD equation with creatinine calibration to IDMS(NKDEP) eGFR not recommended for drug dose adjustment Performed By: #### H EMDF, PT, BMP3M, PHOS3, MG3, CK3 #### [facility] [address] [place] #### VD25H #### [facility] [address] [place] [address] Urea nitrogen mass conc 19 mg/dL Normal 7-20 [facility] Comment on above: Performed By: #### H EMDF, PT, BMP3M, PHOS3, MG3, CK3 #### [place] [address] [address] [facility] #### VD25H #### [facility] [address] [place] [address] Chloride molar conc 104 mmol/L Normal 98-107 [facility] Comment on above: Performed By: #### H EMDF, PT, BMP3M, PHOS3, MG3, CK3 #### [place] [address] [address] [facility] #### VD25H #### [facility] [address] [place] [address] Potassium molar conc 3.4 mmol/L Low 3.5-5.1 [facility] Comment on above: Performed By: #### H EMDF, PT, BMP3M, PHOS3, MG3, CK3 #### [place] [address] [address] [facility], [place] #### VD25H #### [facility] [address] [place] [address] Sodium molar conc 142 mmol/L Normal 135-145 [facility] Comment on above: Performed By: #### H EMDF, PT, BMP3M, PHOS3, MG3, CK3 #### [place] [address] [address] [facility], [place] #### VD25H #### [facility] [address] [place] [address] CR Abdomen APon 07-18-2018 CR Abdomen AP Patient Name: KATHYA HOOPER Diagnostic Radiology Exam Date/Time 07/18/2018 06:52:18 EDT Exam CR Abdomen AP Ordering Physician [id number] JOYA PERRY Accession Number [id number] CPT4 Codes 14561 () Reason For Exam ileus Report CLINICAL [...] Transcribed Date and Time: 07/18/2018 2:33 Normal [facility] CR Chest Portableon 07-19-19 19 CR Chest Portable Patient Name: KATHYA HOOPER Diagnostic Radiology Exam Date/Time 07/18/2018 06:52:50 EDT Exam CR Chest Portable Ordering Physician MARIA EUGENIA PEREZ Accession Number [id number] CPT4 Codes 91175 () Reason For Exam ETT placement Report [...] Transcribed Date and Time: 07/18/2018 2:32 Normal [facility] Hemogram w/ Autodiffon 07-18 Abs Baso Cnt 0.0 10*3/uL Normal 0.0-0.2 [facility] Comment on above: Performed By: #### H EMDF, PT, BMP3M, PHOS3, MG3, CK3 #### [address] #### VD25H #### [facility] [address] [place] [address] Abs Neutrophile Cnt 8.6 10*3/uL High 1.8-7.0 [facility] Comment on above: Performed By: #### H EMDF, PT, BMP3M, PHOS3, MG3, CK3 #### [address] #### VD25H #### [facility] [address] [place] [address] Basophils/100 WBC (Bld) 0.4 % Normal 0.0-2.0 [facility] Comment on above: Performed By: #### H EMDF, PT, BMP3M, PHOS3, MG3, CK3 #### [address] #### VD25H #### [facility] [address] [place] [address] Eosinophils #/vol (Bld) 0.2 10*3/uL Normal 0.0-0.5 [facility] Comment on above: Performed By: #### H EMDF, PT, BMP3M, PHOS3, MG3, CK3 #### [facility] [address] [place], [place] #### VD25H #### [facility] [address] [place] [address] Eosinophils/100 WBC (Bld) 2.1 % Normal 1.0-6.0 [facility] Comment on above: Performed By: #### H EMDF, PT, BMP3M, PHOS3, MG3, CK3 #### [address] #### VD25H #### [facility] [address] [place] [address] Erythrocyte distribution width Ratio (RBC) 13.4 % Normal 11.5-14.5 [facility] Comment on above: Performed By: #### H EMDF, PT, BMP3M, PHOS3, MG3, CK3 #### [address] #### VD25H #### [facility] [address] [place] [address] Granulocytes/100 WBC (Bld) 80.0 % Normal 40.0-80.0 [facility] Comment on above: Performed By: #### H EMDF, PT, BMP3M, PHOS3, MG3, CK3 #### [address] #### VD25H #### [facility] [address] [place] [address] Hematocrit Volume Fraction (Bld) 37.3 % Low 40.0-52.0 [facility] Comment on above: Performed By: #### H EMDF, PT, BMP3M, PHOS3, MG3, CK3 #### [address] #### VD25H #### [facility] [address] [place] [address] Hemoglobin mass conc (Bld) 12.6 g/dL Low 13.0-18.0 [facility] Comment on above: Performed By: #### H EMDF, PT, BMP3M, PHOS3, MG3, CK3 #### [address] #### VD25H #### [facility] [address] [place] [address] Lymphocytes #/vol (Bld) 1.1 10*3/uL Normal 1.0-4.3 [facility] Comment on above: Performed By: #### H EMDF, PT, BMP3M, PHOS3, MG3, CK3 #### [address] #### VD25H #### [facility] [address] [place] [address] Lymphocytes/100 WBC (Bld) 10.3 % Low 20.0-40.0 [facility] Comment on above: Performed By: #### H EMDF, PT, BMP3M, PHOS3, MG3, CK3 #### [address] #### VD25H #### [facility] [address] [place] [address] MCH Entitic mass (RBC) 29.4 pg Normal 26.0-34.0 [facility] Comment on above: Performed By: #### H EMDF, PT, BMP3M, PHOS3, MG3, CK3 #### [address] #### VD25H #### [facility] [address] [place] [address] MCHC mass conc (RBC) 33.9 % Normal 32.0-36.0 [facility] Comment on above: Performed By: #### H EMDF, PT, BMP3M, PHOS3, MG3, CK3 #### [address] #### VD25H #### [facility] [address] [place] [address] MCV Entitic volume (RBC) 86.8 fL Normal 80.0-98.0 [facility] Comment on above: Performed By: #### H EMDF, PT, BMP3M, PHOS3, MG3, CK3 #### [place] [address] [place], [place] #### VD25H #### [facility] [address] [place] [address] Monocytes #/vol (Bld) 0.8 10*3/uL Normal 0.0-0.8 [facility] Comment on above: Performed By: #### H EMDF, PT, BMP3M, PHOS3, MG3, CK3 #### [address] #### VD25H #### [facility] [address] [place] [address] Monocytes/100 WBC (Bld) 7.2 % Normal 2.0-10.0 [facility] Comment on above: Performed By: #### H EMDF, PT, BMP3M, PHOS3, MG3, CK3 #### [address] #### VD25H #### [facility] [address] [place] [address] Platelet mean volume Entitic volume (Bld) 7.8 fL Normal 7.4-10.4 [facility] Comment on above: Performed By: #### H EMDF, PT, BMP3M, PHOS3, MG3, CK3 #### [address] [place] [address] [place], [place] #### VD25H #### [facility] [address] [place] [address] Platelets #/vol (Bld) 301 10*3/uL Normal 140-440 [facility] Comment on above: Performed By: #### H EMDF, PT, BMP3M, PHOS3, MG3, CK3 #### [address] #### VD25H #### [facility] [address] [place] [address] RBC #/vol (Bld) 4.29 10*6/uL Low 4.40-5.90 [facility] Comment on above: Performed By: #### H EMDF, PT, BMP3M, PHOS3, MG3, CK3 #### [address] #### VD25H #### [facility] [address] [place] [address] WBC #/vol (Bld) 10.8 10*3/uL High 3.6-10.7 [facility] Comment on above: Performed By: #### H EMDF, PT, BMP3M, PHOS3, MG3, CK3 #### [address] #### VD25H #### [facility] [address] [place] [address] Arterial Blood Gaseson 07-17 CO2 molar conc 29.7 mmol/L High 23.0-27.0 [facility] Comment on above: Performed By: #### H EMDF, PT, BMP3M, PHOS3, MG3, CK3 #### [address] #### VD25H #### [facility] [address] [place] [address] HCO3 molar conc (Bld) 28.4 mmol/L High 21.0-25.0 [facility] Comment on above: Performed By: #### H EMDF, PT, BMP3M, PHOS3, MG3, CK3 #### [address] #### VD25H #### [facility] [address] [place] [address] Hemoglobin mass conc (Bld) 11.1 g/dL Normal ScreenOnly [facility] Comment on above: Performed By: #### H EMDF, PT, BMP3M, PHOS3, MG3, CK3 #### [address] #### VD25H #### [facility] [address] [place] [address] Oxygen ppres (Bld) 109.2 mm[Hg] High 80.0-100.0 [facility] Comment on above: Performed By: #### H EMDF, PT, BMP3M, PHOS3, MG3, CK3 #### [address] [place] [address] [place] #### VD25H #### [facility] [address] [place] [address] Oxygen saturation in Blood 97.8 % Normal 95.0-100.0 [facility] Comment on above: Performed By: #### H EMDF, PT, BMP3M, PHOS3, MG3, CK3 #### [address] #### VD25H #### [facility] [address] [place] [address] pCO2 39.8 mm[Hg] Normal 35.0-45.0 [facility] Comment on above: Performed By: #### H EMDF, PT, BMP3M, PHOS3, MG3, CK3 #### [address] [place] [address] [place] #### VD25H #### [facility] [address] [place] [address] pH (Bld) 7.472 High 7.350-7.450 [facility] Comment on above: Performed By: #### H EMDF, PT, BMP3M, PHOS3, MG3, CK3 #### [address] #### VD25H #### [facility] [address] [place] [address] Std Base Excess 4.5 mmol/L High -3.0-3.0 [facility] Comment on above: Performed By: #### H EMDF, PT, BMP3M, PHOS3, MG3, CK3 #### [place] [address] [address] [place], [place] #### VD25H #### [facility] [address] [place] [id number] FIO2 60% Normal [facility] Comment on above: Performed By: #### H EMDF, PT, BMP3M, PHOS3, MG3, CK3 #### [place] [address] [address] [facility], [place] #### VD25H #### [facility] [address] [place] [address] Basic Metabolic Panelon - Anion gap molar conc 6 Normal [facility] Comment on above: Performed By: #### H EMDF, PT, BMP3M, PHOS3, MG3, CK3 #### [place] [address] [address] [facility] #### VD25H #### [facility] [address] [place] [address] Calcium mass conc 8.0 mg/dL Low 8.4-10.4 [facility] Comment on above: Performed By: #### H EMDF, PT, BMP3M, PHOS3, MG3, CK3 #### [place] [address] [address] [facility] [place] #### VD25H #### [facility] [address] [place] [address] CO2 molar conc 31 mmol/L High 22-30 [facility] Comment on above: Performed By: #### H EMDF, PT, BMP3M, PHOS3, MG3, CK3 #### [place] [address] [address] [facility] #### VD25H #### [facility] [address] [place] [address] Glucose mass conc 107 mg/dL High 70-100 [facility] Comment on above: Performed By: #### H EMDF, PT, BMP3M, PHOS3, MG3, CK3 #### [place] [address] [address] [facility] #### VD25H #### [facility] [address] [place] [address] Urea nitrogen mass conc 22 mg/dL High 7-20 [facility] Comment on above: Performed By: #### H EMDF, PT, BMP3M, PHOS3, MG3, CK3 #### [facility] [address] [place], [place] #### VD25H #### [facility] [address] [place] [address] Creatinine mass conc 0.66 mg/dL Normal 0.52-1.25 [facility] Comment on above: Performed By: #### H EMDF, PT, BMP3M, PHOS3, MG3, CK3 #### [address] #### VD25H #### [facility] [address] [place] [address] GFR/1.73 sq M predicted among blacks MDRD vol rate/area (S/P/Bld) mL/min/{1.73_m2} Normal >60 [facility] Comment on above: Performed By: #### H EMDF, PT, BMP3M, PHOS3, MG3, CK3 #### [address] #### VD25H #### [facility] [address] [place] [address] GFR/1.73 sq M predicted among non-blacks MDRD vol rate/area (S/P/Bld) mL/min/{1.73_m2} Normal >60 [facility] Comment on above: Result Comment: Sour ce- MDRD equation with creatinine calibration to IDMS(NKDEP) eGFR not recommended for drug dose adjustment Performed By: #### H EMDF, PT, BMP3M, PHOS3, MG3, CK3 #### [facility] [address] [place], [place] #### VD25H #### [facility] [address] [place] [address] Chloride molar conc 105 mmol/L Normal 98-107 [facility] Comment on above: Performed By: #### H EMDF, PT, BMP3M, PHOS3, MG3, CK3 #### [facility] [address] [facility] [place] [address] #### VD25H #### [facility] [address] [place] [address] Potassium molar conc 3.9 mmol/L Normal 3.5-5.1 [facility] Comment on above: Performed By: #### H EMDF, PT, BMP3M, PHOS3, MG3, CK3 #### [facility] [address] [facility] [place] [address] #### VD25H #### [facility] [address] [place] [address] Sodium molar conc 142 mmol/L Normal 135-145 [facility] Comment on above: Performed By: #### H EMDF, PT, BMP3M, PHOS3, MG3, CK3 #### [facility] [address] [facility] [place] [address] #### VD25H #### [facility] [address] [place] [address] CR Abdomen APon 07-17-2018 CR Abdomen AP Patient Name: KATHYA HOOPER Diagnostic Radiology Exam Date/Time 07/17/2018 12:46:31 EDT Exam CR Abdomen AP Ordering Physician [id number] AGUILERA Accession Number [id number] CPT4 Codes 40946 () Reason For Exam ileus Report Abdomen: [...] RISA Transcribed Date and Time: 07/17/2018 12:46 [facility] CR Abdomen AP Patient Name: KATHYA HOOPER Diagnostic Radiology Exam Date/Time 07/17/2018 06:25:43 EDT Exam CR Abdomen AP Ordering Physician [id number] OR[place]O JOYA Accession Number [id number] CPT4 Codes 34371 () Reason For Exam ileus Report Abdomen: [...] RISA Transcribed Date and Time: 07/17/2018 7:16 [facility] CR Chest Portableon 07-18-19 19 CR Chest Portable Patient Name: KATHYA HOOPER Diagnostic Radiology Exam Date/Time 07/17/2018 18:08:41 EDT Exam CR Chest Portable Ordering Physician SALO DAVIS Accession Number [id number] CPT4 Codes 33019 () Reason For Exam picc Report CHEST [...] Transcribed Date and Time: 07/17/2018 7:24 Normal [facility] CR Chest Portable Patient Name: KATHYA HOOPER Diagnostic Radiology Exam Date/Time 07/17/2018 18:08:41 EDT Exam CR Chest Portable Ordering Physician SALO DAVIS Accession Number [id number] CPT4 Codes 65035 () Reason For Exam reheck line tip [...] R Transcribed Date and Time: 07/17/2018 7:21 [facility] CR Chest Portable Patient Name: KATHYA HOOPER Diagnostic Radiology Exam Date/Time 07/17/2018 06:26:06 EDT Exam CR Chest Portable Ordering Physician MARIA EUGENIA PEREZ Accession Number [id number] CPT4 Codes 19539 () Reason For Exam ETT placement Report [...] Transcribed Date and Time: 07/17/2018 7:17 Normal [facility] Hemogram w/ Autodiffon 07-17 Abs Baso Cnt 0.0 10*3/uL Normal 0.0-0.2 [facility] Comment on above: Performed By: #### H EMDF, PT, BMP3M, PHOS3, MG3, CK3 #### [facility] [address] [place] [address] #### VD25H #### [facility] [address] [place] [address] Abs Neutrophile Cnt 8.1 10*3/uL High 1.8-7.0 [facility] Comment on above: Performed By: #### H EMDF, PT, BMP3M, PHOS3, MG3, CK3 #### [facility] [address] [place] [address] #### VD25H #### [facility] [address] [place] [address] Basophils/100 WBC (Bld) 0.4 % Normal 0.0-2.0 [facility] Comment on above: Performed By: #### H EMDF, PT, BMP3M, PHOS3, MG3, CK3 #### [facility] [address] [place], [place] #### VD25H #### [facility] [address] [place] [address] Eosinophils #/vol (Bld) 0.1 10*3/uL Normal 0.0-0.5 [facility] Comment on above: Performed By: #### H EMDF, PT, BMP3M, PHOS3, MG3, CK3 #### [place] [address] [address] [place], [place] #### VD25H #### [facility] [address] [place] [address] Eosinophils/100 WBC (Bld) 1.4 % Normal 1.0-6.0 [facility] Comment on above: Performed By: #### H EMDF, PT, BMP3M, PHOS3, MG3, CK3 #### [address] #### VD25H #### [facility] [address] [place] [address] Erythrocyte distribution width Ratio (RBC) 13.5 % Normal 11.5-14.5 [facility] Comment on above: Performed By: #### H EMDF, PT, BMP3M, PHOS3, MG3, CK3 #### [address] #### VD25H #### [facility] [address] [place] [address] Granulocytes/100 WBC (Bld) 78.6 % Normal 40.0-80.0 [facility] Comment on above: Performed By: #### H EMDF, PT, BMP3M, PHOS3, MG3, CK3 #### [address] #### VD25H #### [facility] [address] [place] [address] Hematocrit Volume Fraction (Bld) 31.3 % Low 40.0-52.0 [facility] Comment on above: Performed By: #### H EMDF, PT, BMP3M, PHOS3, MG3, CK3 #### [address] [place], [place] #### VD25H #### [facility] [address] [place] [address] Hemoglobin mass conc (Bld) 10.4 g/dL Low 13.0-18.0 [facility] Comment on above: Performed By: #### H EMDF, PT, BMP3M, PHOS3, MG3, CK3 #### [address] [place], [place] #### VD25H #### [facility] [address] [place] [address] Lymphocytes #/vol (Bld) 1.0 10*3/uL Normal 1.0-4.3 [facility] Comment on above: Performed By: #### H EMDF, PT, BMP3M, PHOS3, MG3, CK3 #### [address] #### VD25H #### [facility] [address] [place] [address] Lymphocytes/100 WBC (Bld) 10.0 % Low 20.0-40.0 [facility] Comment on above: Performed By: #### H EMDF, PT, BMP3M, PHOS3, MG3, CK3 #### [address] #### VD25H #### [facility] [address] [place] [address] MCH Entitic mass (RBC) 29.3 pg Normal 26.0-34.0 [facility] Comment on above: Performed By: #### H EMDF, PT, BMP3M, PHOS3, MG3, CK3 #### [address] #### VD25H #### [facility] [address] [place] [place] [address] MCHC mass conc (RBC) 33.3 % Normal 32.0-36.0 [facility] Comment on above: Performed By: #### H EMDF, PT, BMP3M, PHOS3, MG3, CK3 #### [address] [place], [place] #### VD25H #### [facility] [address] [place] [address] MCV Entitic volume (RBC) 87.9 fL Normal 80.0-98.0 [facility] Comment on above: Performed By: #### H EMDF, PT, BMP3M, PHOS3, MG3, CK3 #### [address] #### VD25H #### [facility] [address] [place] [address] Monocytes #/vol (Bld) 1.0 10*3/uL High 0.0-0.8 [facility] Comment on above: Performed By: #### H EMDF, PT, BMP3M, PHOS3, MG3, CK3 #### [address] #### VD25H #### [facility] [address] [place] [address] Monocytes/100 WBC (Bld) 9.6 % Normal 2.0-10.0 [facility] Comment on above: Performed By: #### H EMDF, PT, BMP3M, PHOS3, MG3, CK3 #### [address] #### VD25H #### [facility] [address] [place] [address] Platelet mean volume Entitic volume (Bld) 7.6 fL Normal 7.4-10.4 [facility] Comment on above: Performed By: #### H EMDF, PT, BMP3M, PHOS3, MG3, CK3 #### [address] #### VD25H #### [facility] [address] [place] [address] Platelets #/vol (Bld) 307 10*3/uL Normal 140-440 [facility] Comment on above: Performed By: #### H EMDF, PT, BMP3M, PHOS3, MG3, CK3 #### [facility] [address] [place], [place] #### VD25H #### [facility] [address] [place] [address] RBC #/vol (Bld) 3.56 10*6/uL Low 4.40-5.90 [facility] Comment on above: Performed By: #### H EMDF, PT, BMP3M, PHOS3, MG3, CK3 #### [address] #### VD25H #### [facility] [address] [place] [address] WBC #/vol (Bld) 10.2 10*3/uL Normal 3.6-10.7 [facility] Comment on above: Performed By: #### H EMDF, PT, BMP3M, PHOS3, MG3, CK3 #### [place] [address] [place], [place] #### VD25H #### [facility] [address] [place] [address] Basic Metabolic Panelon - Calcium mass conc 8.1 mg/dL Low 8.4-10.4 [facility] Comment on above: Performed By: #### H EMDF, PT, BMP3M, PHOS3, MG3, CK3 #### [address] [place], [place] #### VD25H #### [facility] [address] [place] [address] Anion gap molar conc 5 Normal [facility] Comment on above: Performed By: #### H EMDF, PT, BMP3M, PHOS3, MG3, CK3 #### [address] #### VD25H #### [facility] [address] [place] [address] CO2 molar conc 32 mmol/L High 22-30 [facility] Comment on above: Performed By: #### H EMDF, PT, BMP3M, PHOS3, MG3, CK3 #### [address] [address] #### VD25H #### [facility] [address] [place] [address] Creatinine mass conc 0.62 mg/dL Normal 0.52-1.25 [facility] Comment on above: Performed By: #### H EMDF, PT, BMP3M, PHOS3, MG3, CK3 #### [address] #### VD25H #### [place] [address] [place] [address] GFR/1.73 sq M predicted among blacks MDRD vol rate/area (S/P/Bld) mL/min/{1.73_m2} Normal >60 [facility] Comment on above: Performed By: #### H EMDF, PT, BMP3M, PHOS3, MG3, CK3 #### [address] #### VD25H #### [address] [place] [address] GFR/1.73 sq M predicted among non-blacks MDRD vol rate/area (S/P/Bld) mL/min/{1.73_m2} Normal >60 [facility] Comment on above: Result Comment: Sour ce- MDRD equation with creatinine calibration to IDMS(NKDEP) eGFR not recommended for drug dose adjustment Performed By: #### H EMDF, PT, BMP3M, PHOS3, MG3, CK3 #### [address] #### VD25H #### [place] [address] [place] [address] Glucose mass conc 103 mg/dL High 70-100 [facility] Comment on above: Performed By: #### H EMDF, PT, BMP3M, PHOS3, MG3, CK3 #### [place] [address] [address] [facility] [place] [address] #### VD25H #### [facility] [address] [place] [address] Urea nitrogen mass conc 20 mg/dL Normal 7-20 [facility] Comment on above: Performed By: #### H EMDF, PT, BMP3M, PHOS3, MG3, CK3 #### [place] [address] [address] [facility] [place] #### VD25H #### [facility] [address] [place] [address] Chloride molar conc 107 mmol/L Normal 98-107 [facility] Comment on above: Performed By: #### H EMDF, PT, BMP3M, PHOS3, MG3, CK3 #### [place] [address] [address] [facility] [place] #### VD25H #### [facility] [address] [place] [address] Potassium molar conc 3.7 mmol/L Normal 3.5-5.1 [facility] Comment on above: Performed By: #### H EMDF, PT, BMP3M, PHOS3, MG3, CK3 #### [place] [address] [address] [facility] [place] #### VD25H #### [facility] [address] [place] [address] Sodium molar conc 145 mmol/L Normal 135-145 [facility] Comment on above: Performed By: #### H EMDF, PT, BMP3M, PHOS3, MG3, CK3 #### [place] [address] [address] [facility] [place] #### VD25H #### [facility] [address] [place] [address] CR Abdomen APon 07-16-2018 CR Abdomen AP Patient Name: KATHYA HOOPER [facility]: [id number] Diagnostic Radiology Exam Date/Time 07/16/2018 08:00:58 EDT Exam CR Abdomen AP Ordering Physician [id number] CARRILLOAnanda JOYA Accession Number [id number] CPT4 Codes 78803 () Reason For Exam ileus Report KUB [...] Transcribed Date and Time: 07/16/2018 10:03 Normal [facility] CR Chest Portableon 07-17-19 CR Chest Portable Patient Name: KATHYA HOOPER Diagnostic Radiology Exam Date/Time 07/16/2018 06:19:28 EDT Exam CR Chest Portable Ordering Physician MARIA EUGENIA PEREZ Accession Number [id number] CPT4 Codes 44897 () Reason For Exam ETT placement Report [...] Transcribed Date and Time: 07/16/2018 10:10 Normal [facility] Hemogram w/ Autodiffon 07-16 Abs Baso Cnt 0.0 10*3/uL Normal 0.0-0.2 [facility] Comment on above: Performed By: #### H EMDF, PT, BMP3M, PHOS3, MG3, CK3 #### [facility] [address] [place], [place] #### VD25H #### [facility] [address] [place] [address] Abs Neutrophile Cnt 8.7 10*3/uL High 1.8-7.0 [facility] Comment on above: Performed By: #### H EMDF, PT, BMP3M, PHOS3, MG3, CK3 #### [facility] [address] [place], [place] #### VD25H #### [facility] [address] [place] [address] Basophils/100 WBC (Bld) 0.2 % Normal 0.0-2.0 [facility] Comment on above: Performed By: #### H EMDF, PT, BMP3M, PHOS3, MG3, CK3 #### [facility] [address] [place], [place] #### VD25H #### [facility] [address] [place] [address] Eosinophils #/vol (Bld) 0.1 10*3/uL Normal 0.0-0.5 [facility] Comment on above: Performed By: #### H EMDF, PT, BMP3M, PHOS3, MG3, CK3 #### [facility] [address] [place], [place] #### VD25H #### [facility] [address] [place] [address] Eosinophils/100 WBC (Bld) 0.7 % Low 1.0-6.0 [facility] Comment on above: Performed By: #### H EMDF, PT, BMP3M, PHOS3, MG3, CK3 #### [facility] [address] [place], [place] #### VD25H #### [facility] [address] [place] [address] Erythrocyte distribution width Ratio (RBC) 13.7 % Normal 11.5-14.5 [facility] Comment on above: Performed By: #### H EMDF, PT, BMP3M, PHOS3, MG3, CK3 #### [address] #### VD25H #### [facility] [address] [place] [address] Granulocytes/100 WBC (Bld) 83.0 % High 40.0-80.0 [facility] Comment on above: Performed By: #### H EMDF, PT, BMP3M, PHOS3, MG3, CK3 #### [address] #### VD25H #### [facility] [address] [place] [address] Hematocrit Volume Fraction (Bld) 30.3 % Low 40.0-52.0 [facility] Comment on above: Performed By: #### H EMDF, PT, BMP3M, PHOS3, MG3, CK3 #### [facility] [address] [place], [place] #### VD25H #### [facility] [address] [place] [address] Hemoglobin mass conc (Bld) 10.5 g/dL Low 13.0-18.0 [facility] Comment on above: Performed By: #### H EMDF, PT, BMP3M, PHOS3, MG3, CK3 #### [address] #### VD25H #### [facility] [address] [place] [address] Lymphocytes #/vol (Bld) 0.7 10*3/uL Low 1.0-4.3 [facility] Comment on above: Performed By: #### H EMDF, PT, BMP3M, PHOS3, MG3, CK3 #### [place] [address] [address] [place], [place] #### VD25H #### [facility] [address] [place] [address] Lymphocytes/100 WBC (Bld) 6.7 % Low 20.0-40.0 [facility] Comment on above: Performed By: #### H EMDF, PT, BMP3M, PHOS3, MG3, CK3 #### [address] #### VD25H #### [facility] [address] [place] [address] MCH Entitic mass (RBC) 30.2 pg Normal 26.0-34.0 [facility] Comment on above: Performed By: #### H EMDF, PT, BMP3M, PHOS3, MG3, CK3 #### [address] #### VD25H #### [facility] [address] [place] [address] MCHC mass conc (RBC) 34.6 % Normal 32.0-36.0 [facility] Comment on above: Performed By: #### H EMDF, PT, BMP3M, PHOS3, MG3, CK3 #### [address] #### VD25H #### [facility] [address] [place] [address] MCV Entitic volume (RBC) 87.3 fL Normal 80.0-98.0 [facility] Comment on above: Performed By: #### H EMDF, PT, BMP3M, PHOS3, MG3, CK3 #### [address] #### VD25H #### [facility] [address] [place] [address] Monocytes #/vol (Bld) 1.0 10*3/uL High 0.0-0.8 [facility] Comment on above: Performed By: #### H EMDF, PT, BMP3M, PHOS3, MG3, CK3 #### [address] #### VD25H #### [facility] [address] [place] [address] Monocytes/100 WBC (Bld) 9.4 % Normal 2.0-10.0 [facility] Comment on above: Performed By: #### H EMDF, PT, BMP3M, PHOS3, MG3, CK3 #### [address] #### VD25H #### [place] [address] [place] [address] Platelet mean volume Entitic volume (Bld) 6.9 fL Low 7.4-10.4 [facility] Comment on above: Performed By: #### H EMDF, PT, BMP3M, PHOS3, MG3, CK3 #### [address] #### VD25H #### [place] [address] [place] [address] Platelets #/vol (Bld) 254 10*3/uL Normal 140-440 [facility] Comment on above: Performed By: #### H EMDF, PT, BMP3M, PHOS3, MG3, CK3 #### [address] #### VD25H #### [facility] [address] [place] [address] RBC #/vol (Bld) 3.47 10*6/uL Low 4.40-5.90 [facility] Comment on above: Performed By: #### H EMDF, PT, BMP3M, PHOS3, MG3, CK3 #### [address] [place], [place] #### VD25H #### [facility] [address] [place] [address] WBC #/vol (Bld) 10.5 10*3/uL Normal 3.6-10.7 [facility] Comment on above: Performed By: #### H EMDF, PT, BMP3M, PHOS3, MG3, CK3 #### [address] [place], [place] #### VD25H #### [place] [address] [place] [address] Arterial Blood Gaseson 07-15 CO2 molar conc 26.7 mmol/L Normal 23.0-27.0 [facility] Comment on above: Performed By: #### H EMDF, PT, BMP3M, PHOS3, MG3, CK3 #### [address] #### VD25H #### [place] [address] [place] [address] FIO2 50% Normal [facility] Comment on above: Performed By: #### H EMDF, PT, BMP3M, PHOS3, MG3, CK3 #### [address] #### VD25H #### [place] [address] [place] [address] HCO3 molar conc (Bld) 25.7 mmol/L High 21.0-25.0 [facility] Comment on above: Performed By: #### H EMDF, PT, BMP3M, PHOS3, MG3, CK3 #### [address] #### VD25H #### [place] [address] [place] [address] Hemoglobin mass conc (Bld) 12.5 g/dL Normal ScreenOnly [facility] Comment on above: Performed By: #### H EMDF, PT, BMP3M, PHOS3, MG3, CK3 #### [facility] [address] [place], [place] #### VD25H #### [facility] [address] [place] [address] Oxygen ppres (Bld) 90.4 mm[Hg] Normal 80.0-100.0 [facility] Comment on above: Performed By: #### H EMDF, PT, BMP3M, PHOS3, MG3, CK3 #### [place] [address] [address] [place], [place] #### VD25H #### [facility] [address] [place] [address] Oxygen saturation in Blood 96.8 % Normal 95.0-100.0 [facility] Comment on above: Performed By: #### H EMDF, PT, BMP3M, PHOS3, MG3, CK3 #### [address] #### VD25H #### [facility] [address] [place] [address] pCO2 33.4 mm[Hg] Low 35.0-45.0 [facility] Comment on above: Performed By: #### H EMDF, PT, BMP3M, PHOS3, MG3, CK3 #### [address] #### VD25H #### [facility] [address] [place] [address] pH (Bld) 7.504 High 7.350-7.450 [facility] Comment on above: Performed By: #### H EMDF, PT, BMP3M, PHOS3, MG3, CK3 #### [address] [place], [place] #### VD25H #### [facility] [address] [place] [address] Std Base Excess 2.9 mmol/L Normal -3.0-3.0 [facility] Comment on above: Performed By: #### H EMDF, PT, BMP3M, PHOS3, MG3, CK3 #### [facility] [address] [facility] [place] #### VD25H #### [facility] [address] [place] [address] Basic Metabolic Panelon 06-29 Anion gap molar conc 8 Normal [facility] Comment on above: Performed By: #### H EMDF, PT, BMP3M, PHOS3, MG3, CK3 #### [place] [address] [address] [facility] [place] #### VD25H #### [facility] [address] [place] [address] Calcium mass conc 8.6 mg/dL Normal 8.4-10.4 [facility] Comment on above: Performed By: #### H EMDF, PT, BMP3M, PHOS3, MG3, CK3 #### [place] [address] [address] [place], [place] #### [id number] #### [facility] [address] [place] [address] CO2 molar conc 29 mmol/L Normal 22-30 [facility] Comment on above: Performed By: #### H EMDF, PT, BMP3M, PHOS3, MG3, CK3 #### [place] [address] [address] [facility], [place] #### [id number] #### [facility] [address] [place] [address] Glucose mass conc 119 mg/dL High 70-100 [facility] Comment on above: Performed By: #### H EMDF, PT, BMP3M, PHOS3, MG3, CK3 #### [place] [address] [address] [facility], [place] #### VD25H #### [facility] [address] [place] [address] Urea nitrogen mass conc 23 mg/dL High 7-20 [facility] Comment on above: Performed By: #### H EMDF, PT, BMP3M, PHOS3, MG3, CK3 #### [place] [address] [address] [place], [place] #### VD25H #### [facility] [address] [facility] [place] [address] Creatinine mass conc 0.73 mg/dL Normal 0.52-1.25 [facility] Comment on above: Performed By: #### H EMDF, PT, BMP3M, PHOS3, MG3, CK3 #### [place] [address] [address] [place], [place] #### VD25H #### [facility] [address] [place] [address] GFR/1.73 sq M predicted among blacks MDRD vol rate/area (S/P/Bld) mL/min/{1.73_m2} Normal >60 [facility] Comment on above: Performed By: #### H EMDF, PT, BMP3M, PHOS3, MG3, CK3 #### [address] #### VD25H #### [place] [address] [facility] [place] [address] GFR/1.73 sq M predicted among non-blacks MDRD vol rate/area (S/P/Bld) mL/min/{1.73_m2} Normal >60 [facility] Comment on above: Result Comment: Sour ce- MDRD equation with creatinine calibration to IDMS(NKDEP) eGFR not recommended for drug dose adjustment Performed By: #### H EMDF, PT, BMP3M, PHOS3, MG3, CK3 #### [address] #### VD25H #### [facility] [address] [facility] [place] [address] Potassium molar conc 4.1 mmol/L Normal 3.5-5.1 [facility] Comment on above: Performed By: #### H EMDF, PT, BMP3M, PHOS3, MG3, CK3 #### [address] #### VD25H #### [place] [address] [place] [address] Sodium molar conc 144 mmol/L Normal 135-145 [facility] Comment on above: Performed By: #### H EMDF, PT, BMP3M, PHOS3, MG3, CK3 #### [facility] [address] [place] [address] #### VD25H #### [facility] [address] [place] [address] Chloride molar conc 107 mmol/L Normal 98-107 [facility] Comment on above: Performed By: #### H EMDF, PT, BMP3M, PHOS3, MG3, CK3 #### [facility] [address] [place] [address] #### VD25H #### [facility] [address] [place] [address] CR Abdomen APon 07-15-2018 CR Abdomen AP Patient Name: KATHYA HOOPER Diagnostic Radiology Exam Date/Time 07/15/2018 09:25:44 EDT Exam CR Abdomen AP Ordering Physician [id number] [place], [place] Accession Number [id number] CPT4 Codes 30083 () Reason For Exam ileus Report EXAMINATION: [...] Transcribed Date and Time: 07/15/2018 10:07 Normal [facility] CR Chest Portableon 07-16-19 19 CR Chest Portable Patient Name: KATHYA HOOPER Diagnostic Radiology Exam Date/Time 07/15/2018 06:00:00 EDT Exam CR Chest Portable Ordering Physician MARIA EUGENIA PEREZ Accession Number [id number] CPT4 Codes 40764 () Reason For Exam ETT placement Report [...] Transcribed Date and Time: 07/15/2018 9:14 Normal [facility] CULT./ST. RESPIRATORYon 06-29 CULT./ST. RESPIRATORY CULT./ST. [...] in clusters. Rare gram negative bacilli. Normal [facility] Comment on above: Order Comment: Speci men Source Comment:Sputum, Suctioned Performed By: #### H EMDF, PT, BMP3M, PHOS3, MG3, CK3 #### [facility] [address] [place] [address] #### VD25H #### [facility] [address] [place] [address] Hemogram w/ Autodiffon 07-15 Abs Baso Cnt 0.0 10*3/uL Normal 0.0-0.2 [facility] Comment on above: Performed By: #### H EMDF, PT, BMP3M, PHOS3, MG3, CK3 #### [facility] [address] [place], [place] #### VD25H #### [facility] [address] [place] [address] Abs Neutrophile Cnt 13.2 10*3/uL High 1.8-7.0 [facility] Comment on above: Performed By: #### H EMDF, PT, BMP3M, PHOS3, MG3, CK3 #### [address] #### VD25H #### [facility] [address] [place] [address] Basophils/100 WBC (Bld) 0.2 % Normal 0.0-2.0 [facility] Comment on above: Performed By: #### H EMDF, PT, BMP3M, PHOS3, MG3, CK3 #### [address] #### VD25H #### [facility] [address] [place] [address] Eosinophils #/vol (Bld) 0.0 10*3/uL Normal 0.0-0.5 [facility] Comment on above: Performed By: #### H EMDF, PT, BMP3M, PHOS3, MG3, CK3 #### [address] #### VD25H #### [facility] [address] [place] [address] Eosinophils/100 WBC (Bld) 0.1 % Low 1.0-6.0 [facility] Comment on above: Performed By: #### H EMDF, PT, BMP3M, PHOS3, MG3, CK3 #### [address] #### VD25H #### [facility] [address] [place] [address] Erythrocyte distribution width Ratio (RBC) 13.9 % Normal 11.5-14.5 [facility] Comment on above: Performed By: #### H EMDF, PT, BMP3M, PHOS3, MG3, CK3 #### [address] #### VD25H #### [facility] [address] [place] [address] Granulocytes/100 WBC (Bld) 88.1 % High 40.0-80.0 [facility] Comment on above: Performed By: #### H EMDF, PT, BMP3M, PHOS3, MG3, CK3 #### [address] #### VD25H #### [place] [address] [place] [address] Hematocrit Volume Fraction (Bld) 35.3 % Low 40.0-52.0 [facility] Comment on above: Performed By: #### H EMDF, PT, BMP3M, PHOS3, MG3, CK3 #### [address] #### VD25H #### [facility] [address] [place] [address] Hemoglobin mass conc (Bld) 11.9 g/dL Low 13.0-18.0 [facility] Comment on above: Performed By: #### H EMDF, PT, BMP3M, PHOS3, MG3, CK3 #### [address] #### VD25H #### [facility] [address] [place] [address] Lymphocytes #/vol (Bld) 0.8 10*3/uL Low 1.0-4.3 [facility] Comment on above: Performed By: #### H EMDF, PT, BMP3M, PHOS3, MG3, CK3 #### [address] #### VD25H #### [facility] [address] [place] [place] [address] Lymphocytes/100 WBC (Bld) 5.0 % Low 20.0-40.0 [facility] Comment on above: Performed By: #### H EMDF, PT, BMP3M, PHOS3, MG3, CK3 #### [address] #### VD25H #### [facility] [address] [place] [address] MCH Entitic mass (RBC) 29.5 pg Normal 26.0-34.0 [facility] Comment on above: Performed By: #### H EMDF, PT, BMP3M, PHOS3, MG3, CK3 #### [address] #### VD25H #### [place] [address] [place] [address] MCHC mass conc (RBC) 33.8 % Normal 32.0-36.0 [facility] Comment on above: Performed By: #### H EMDF, PT, BMP3M, PHOS3, MG3, CK3 #### [address] #### VD25H #### [place] [address] [place] [place] [address] MCV Entitic volume (RBC) 87.2 fL Normal 80.0-98.0 [facility] Comment on above: Performed By: #### H EMDF, PT, BMP3M, PHOS3, MG3, CK3 #### [address] #### VD25H #### [facility] [address] [place] [address] Monocytes #/vol (Bld) 1.0 10*3/uL High 0.0-0.8 [facility] Comment on above: Performed By: #### H EMDF, PT, BMP3M, PHOS3, MG3, CK3 #### [address] [place], [place] #### VD25H #### [facility] [address] [place] [address] Monocytes/100 WBC (Bld) 6.6 % Normal 2.0-10.0 [facility] Comment on above: Performed By: #### H EMDF, PT, BMP3M, PHOS3, MG3, CK3 #### [address] [place], [place] #### VD25H #### [facility] [address] [place] [address] Platelet mean volume Entitic volume (Bld) 7.9 fL Normal 7.4-10.4 [facility] Comment on above: Performed By: #### H EMDF, PT, BMP3M, PHOS3, MG3, CK3 #### [address] #### VD25H #### [facility] [address] [place] [address] Platelets #/vol (Bld) 319 10*3/uL Normal 140-440 [facility] Comment on above: Performed By: #### H EMDF, PT, BMP3M, PHOS3, MG3, CK3 #### [address] #### VD25H #### [facility] [address] [place] [address] RBC #/vol (Bld) 4.05 10*6/uL Low 4.40-5.90 [facility] Comment on above: Performed By: #### H EMDF, PT, BMP3M, PHOS3, MG3, CK3 #### [address] #### VD25H #### [facility] [address] [place] [address] WBC #/vol (Bld) 15.0 10*3/uL High 3.6-10.7 [facility] Comment on above: Performed By: #### H EMDF, PT, BMP3M, PHOS3, MG3, CK3 #### [place] [address] [address] [place], [place] #### VD25H #### [facility] [address] [place] [address] Basic Metabolic Panelon - Anion gap molar conc 9 Normal [facility] Comment on above: Performed By: #### H EMDF, PT, BMP3M, PHOS3, MG3, CK3 #### [place] [address] [address] [place], [place] #### VD25H #### [facility] [address] [place] [address] Calcium mass conc 7.6 mg/dL Low 8.4-10.4 [facility] Comment on above: Performed By: #### H EMDF, PT, BMP3M, PHOS3, MG3, CK3 #### [place] [address] [address] [place] #### VD25H #### [facility] [address] [place] [address] CO2 molar conc 26 mmol/L Normal 22-30 [facility] Comment on above: Performed By: #### H EMDF, PT, BMP3M, PHOS3, MG3, CK3 #### [place] [address] [address] [place] #### VD25H #### [facility] [address] [place] [address] Glucose mass conc 148 mg/dL High 70-100 [facility] Comment on above: Performed By: #### H EMDF, PT, BMP3M, PHOS3, MG3, CK3 #### [place] [address] [address] [place] #### VD25H #### [facility] [address] [place] [address] Urea nitrogen mass conc 16 mg/dL Normal 7-20 [facility] Comment on above: Performed By: #### H EMDF, PT, BMP3M, PHOS3, MG3, CK3 #### [facility] [address] [place] #### VD25H #### [facility] [address] [place] [address] Creatinine mass conc 0.62 mg/dL Normal 0.52-1.25 [facility] Comment on above: Performed By: #### H EMDF, PT, BMP3M, PHOS3, MG3, CK3 #### [place] [address] [address] [place] #### VD25H #### [facility] [address] [place] [address] GFR/1.73 sq M predicted among blacks MDRD vol rate/area (S/P/Bld) mL/min/{1.73_m2} Normal >60 [facility] Comment on above: Performed By: #### H EMDF, PT, BMP3M, PHOS3, MG3, CK3 #### [address] #### VD25H #### [facility] [address] [place] [address] GFR/1.73 sq M predicted among non-blacks MDRD vol rate/area (S/P/Bld) mL/min/{1.73_m2} Normal >60 [facility] Comment on above: Result Comment: Sour ce- MDRD equation with creatinine calibration to IDMS(NKDEP) eGFR not recommended for drug dose adjustment Performed By: #### H EMDF, PT, BMP3M, PHOS3, MG3, CK3 #### [address] #### VD25H #### [facility] [address] [place] [address] Potassium molar conc 4.5 mmol/L Normal 3.5-5.1 [facility] [place] [facility] Comment on above: Performed By: #### H EMDF, PT, BMP3M, PHOS3, MG3, CK3 #### [address] #### VD25H #### [facility] [address] [place] [address] Sodium molar conc 137 mmol/L Normal 135-145 [facility] Comment on above: Performed By: #### H EMDF, PT, BMP3M, PHOS3, MG3, CK3 #### [facility] [address] [place] [address] #### VD25H #### [facility] [address] [place] [address] Chloride molar conc 103 mmol/L Normal 98-107 [facility] Comment on above: Performed By: #### H EMDF, PT, BMP3M, PHOS3, MG3, CK3 #### [facility] [address] [place] [address] #### VD25H #### [facility] [address] [place] [address] CR Abdomen APon 07-14-2018 CR Abdomen AP Patient Name: KATHYA HOOPER Diagnostic Radiology Exam Date/Time 07/14/2018 19:15:43 EDT Exam CR Abdomen AP Ordering Physician JOYA ROJAS Accession Number [id number] CPT4 Codes 51826 () Reason For Exam Distended with emesis [...] Transcribed Date and Time: 07/14/2018 7:28 Normal [facility] CR Chest Portableon 07-15-19 19 CR Chest Portable Patient Name: KATHYA HOOPER Diagnostic Radiology Exam Date/Time 07/14/2018 06:53:29 EDT Exam CR Chest Portable Ordering Physician MARIA EUGENIA PEREZ Accession Number [id number] CPT4 Codes 98614 () Reason For Exam ETT placement Report [...] Transcribed Date and Time: 07/14/2018 11:51 Normal [facility] Hemogram w/ Autodiffon 07-14 Abs Baso Cnt 0.0 10*3/uL Normal 0.0-0.2 [facility] Comment on above: Performed By: #### H EMDF, PT, BMP3M, PHOS3, MG3, CK3 #### [facility] [address] [place] [address] #### VD25H #### [facility] [address] [place] [address] Abs Neutrophile Cnt 11.7 10*3/uL High 1.8-7.0 [facility] Comment on above: Performed By: #### H EMDF, PT, BMP3M, PHOS3, MG3, CK3 #### [facility] [address] [place] [address] #### VD25H #### [facility] [address] [place] [address] Basophils/100 WBC (Bld) 0.3 % Normal 0.0-2.0 [facility] Comment on above: Performed By: #### H EMDF, PT, BMP3M, PHOS3, MG3, CK3 #### [facility] [address] [place], [place] #### VD25H #### [facility] [address] [place] [address] Eosinophils #/vol (Bld) 0.0 10*3/uL Normal 0.0-0.5 [facility] Comment on above: Performed By: #### H EMDF, PT, BMP3M, PHOS3, MG3, CK3 #### [address] #### VD25H #### [facility] [address] [place] [address] Eosinophils/100 WBC (Bld) 0.1 % Low 1.0-6.0 [facility] Comment on above: Performed By: #### H EMDF, PT, BMP3M, PHOS3, MG3, CK3 #### [address] #### VD25H #### [facility] [address] [place] [address] Erythrocyte distribution width Ratio (RBC) 13.8 % Normal 11.5-14.5 [facility] Comment on above: Performed By: #### H EMDF, PT, BMP3M, PHOS3, MG3, CK3 #### [address] #### VD25H #### [facility] [address] [place] [address] Granulocytes/100 WBC (Bld) 89.1 % High 40.0-80.0 [facility] Comment on above: Performed By: #### H EMDF, PT, BMP3M, PHOS3, MG3, CK3 #### [address] #### VD25H #### [facility] [address] [place] [address] Hematocrit Volume Fraction (Bld) 33.8 % Low 40.0-52.0 [facility] Comment on above: Performed By: #### H EMDF, PT, BMP3M, PHOS3, MG3, CK3 #### [place] [address] [address] [place] #### VD25H #### [facility] [address] [place] [address] Hemoglobin mass conc (Bld) 11.5 g/dL Low 13.0-18.0 [facility] Comment on above: Performed By: #### H EMDF, PT, BMP3M, PHOS3, MG3, CK3 #### [place] [address] [address] [place] #### VD25H #### [facility] [address] [place] [address] Lymphocytes #/vol (Bld) 0.6 10*3/uL Low 1.0-4.3 [facility] Comment on above: Performed By: #### H EMDF, PT, BMP3M, PHOS3, MG3, CK3 #### [place] [address] [address] [place] #### VD25H #### [facility] [address] [place] [address] Lymphocytes/100 WBC (Bld) 4.5 % Low 20.0-40.0 [facility] Comment on above: Performed By: #### H EMDF, PT, BMP3M, PHOS3, MG3, CK3 #### [place] [address] [address] [place] #### VD25H #### [facility] [address] [place] [address] MCH Entitic mass (RBC) 29.6 pg Normal 26.0-34.0 [facility] Comment on above: Performed By: #### H EMDF, PT, BMP3M, PHOS3, MG3, CK3 #### [address] #### VD25H #### [facility] [address] [place] [address] MCHC mass conc (RBC) 33.9 % Normal 32.0-36.0 [facility] Comment on above: Performed By: #### H EMDF, PT, BMP3M, PHOS3, MG3, CK3 #### [address] #### VD25H #### [facility] [address] [place] [address] MCV Entitic volume (RBC) 87.3 fL Normal 80.0-98.0 [facility] Comment on above: Performed By: #### H EMDF, PT, BMP3M, PHOS3, MG3, CK3 #### [address] #### VD25H #### [place] [address] [place] [address] Monocytes #/vol (Bld) 0.8 10*3/uL Normal 0.0-0.8 [facility] Comment on above: Performed By: #### H EMDF, PT, BMP3M, PHOS3, MG3, CK3 #### [address] #### VD25H #### [place] [address] [place] [address] Monocytes/100 WBC (Bld) 6.0 % Normal 2.0-10.0 [facility] Comment on above: Performed By: #### H EMDF, PT, BMP3M, PHOS3, MG3, CK3 #### [address] #### VD25H #### [facility] [address] [place] [address] Platelet mean volume Entitic volume (Bld) 8.1 fL Normal 7.4-10.4 [facility] Comment on above: Performed By: #### H EMDF, PT, BMP3M, PHOS3, MG3, CK3 #### [facility] [address] [place], [place] #### VD25H #### [facility] [address] [place] [address] Platelets #/vol (Bld) 196 10*3/uL Normal 140-440 [facility] Comment on above: Performed By: #### H EMDF, PT, BMP3M, PHOS3, MG3, CK3 #### [place] [address] [address] [place], [place] #### VD25H #### [facility] [address] [place] [address] RBC #/vol (Bld) 3.87 10*6/uL Low 4.40-5.90 [facility] Comment on above: Performed By: #### H EMDF, PT, BMP3M, PHOS3, MG3, CK3 #### [place] [address] [address] [place], [place] #### VD25H #### [place] [address] [place] [address] WBC #/vol (Bld) 13.2 10*3/uL High 3.6-10.7 [facility] Comment on above: Performed By: #### H EMDF, PT, BMP3M, PHOS3, MG3, CK3 #### [place] [address] [address] [place] #### VD25H #### [facility] [address] [place] [address] Add on test from HISon 07-13 Add on test from HIS Rejected Normal [facility] Comment on above: Result Comment: No s pecimen available for addon. Performed By: #### H EMDF, PT, BMP3M, PHOS3, MG3, CK3 #### [place] [address] [address] [place], [place] #### VD25H #### [facility] [address] [place] [address] Arterial Blood Gaseson 07-13 CO2 molar conc 25.6 mmol/L Normal 23.0-27.0 [facility] Comment on above: Performed By: #### H EMDF, PT, BMP3M, PHOS3, MG3, CK3 #### [facility] [address] [place], [place] #### VD25H #### [facility] [address] [place] [address] HCO3 molar conc (Bld) 24.5 mmol/L Normal 21.0-25.0 [facility] Comment on above: Performed By: #### H EMDF, PT, BMP3M, PHOS3, MG3, CK3 #### [address] #### VD25H #### [place] [address] [facility] [place] [address] Hemoglobin mass conc (Bld) 9.7 g/dL Normal ScreenOnly [facility] Comment on above: Performed By: #### H EMDF, PT, BMP3M, PHOS3, MG3, CK3 #### [address] #### VD25H #### [facility] [address] [place] [address] Oxygen ppres (Bld) 99.9 mm[Hg] Normal 80.0-100.0 [facility] Comment on above: Performed By: #### H EMDF, PT, BMP3M, PHOS3, MG3, CK3 #### [address] #### VD25H #### [facility] [address] [place] [address] Oxygen saturation in Blood 97.5 % Normal 95.0-100.0 [facility] Comment on above: Performed By: #### H EMDF, PT, BMP3M, PHOS3, MG3, CK3 #### [address] #### VD25H #### [facility] [address] [place] [address] pCO2 36.0 mm[Hg] Normal 35.0-45.0 [facility] Comment on above: Performed By: #### H EMDF, PT, BMP3M, PHOS3, MG3, CK3 #### [address] [place], [place] #### VD25H #### [place] [address] [place] [address] pH (Bld) 7.450 Normal 7.350-7.450 [facility] Comment on above: Performed By: #### H EMDF, PT, BMP3M, PHOS3, MG3, CK3 #### [address] #### VD25H #### [place] [address] [place] [address] Std Base Excess 0.6 mmol/L Normal -3.0-3.0 [facility] Comment on above: Performed By: #### H EMDF, PT, BMP3M, PHOS3, MG3, CK3 #### [address] #### VD25H #### [address] [place] [address] FIO2 .50 Normal [facility] Comment on above: Performed By: #### H EMDF, PT, BMP3M, PHOS3, MG3, CK3 #### [address] #### VD25H #### [place] [address] [place] [address] Basic Metabolic Panelon 06-29 Calcium mass conc 7.6 mg/dL Low 8.4-10.4 [facility] Comment on above: Performed By: #### H EMDF, PT, BMP3M, PHOS3, MG3, CK3 #### [address] #### VD25H #### [place] [address] [place] [address] Glucose mass conc 120 mg/dL High 70-100 [facility] Comment on above: Performed By: #### H EMDF, PT, BMP3M, PHOS3, MG3, CK3 #### [address] [place] [address] #### VD25H #### [facility] [address] [place] [address] Anion gap molar conc 7 Normal [facility] Comment on above: Performed By: #### H EMDF, PT, BMP3M, PHOS3, MG3, CK3 #### [address] #### VD25H #### [facility] [address] [place] [address] CO2 molar conc 27 mmol/L Normal 22-30 [facility] Comment on above: Performed By: #### H EMDF, PT, BMP3M, PHOS3, MG3, CK3 #### [address] #### VD25H #### [facility] [address] [place] [address] Creatinine mass conc 0.62 mg/dL Normal 0.52-1.25 [facility] Comment on above: Performed By: #### H EMDF, PT, BMP3M, PHOS3, MG3, CK3 #### [address] #### VD25H #### [facility] [address] [place] [address] GFR/1.73 sq M predicted among blacks MDRD vol rate/area (S/P/Bld) mL/min/{1.73_m2} Normal >60 [facility] Comment on above: Performed By: #### H EMDF, PT, BMP3M, PHOS3, MG3, CK3 #### [address] #### VD25H #### [facility] [address] [place] [address] GFR/1.73 sq M predicted among non-blacks MDRD vol rate/area (S/P/Bld) mL/min/{1.73_m2} Normal >60 [facility] Comment on above: Result Comment: Sour ce- MDRD equation with creatinine calibration to IDMS(NKDEP) eGFR not recommended for drug dose adjustment Performed By: #### H EMDF, PT, BMP3M, PHOS3, MG3, CK3 #### [facility] [address] [place] #### VD25H #### [facility] [address] [place] [address] Urea nitrogen mass conc 17 mg/dL Normal 7-20 [facility] Comment on above: Performed By: #### H EMDF, PT, BMP3M, PHOS3, MG3, CK3 #### [address] #### [id number] #### [facility] [address] [place] [address] Chloride molar conc 105 mmol/L Normal 98-107 [facility] Comment on above: Performed By: #### H EMDF, PT, BMP3M, PHOS3, MG3, CK3 #### [address] #### [id number] #### [facility] [address] [place] [address] Potassium molar conc 3.8 mmol/L Normal 3.5-5.1 [facility] Comment on above: Performed By: #### H EMDF, PT, BMP3M, PHOS3, MG3, CK3 #### [address] #### VD25H #### [facility] [address] [place] [address] Sodium molar conc 139 mmol/L Normal 135-145 [facility] Comment on above: Performed By: #### H EMDF, PT, BMP3M, PHOS3, MG3, CK3 #### [address] [place] [address] #### VD25H #### [facility] [address] [place] [address] CR Chest Portableon 07-14-19 19 CR Chest Portable Patient Name: KATHYA HOOPER Diagnostic Radiology Exam Date/Time 07/13/2018 06:05:45 EDT Exam CR Chest Portable Ordering Physician MARIA EUGENIA PEREZ Accession Number [id number] CPT4 Codes 81462 () Reason For Exam ETT placement Report [...] Transcribed Date and Time: 07/13/2018 6:33 Normal [facility] Calcium,Ionizedon 07-13-2018 Ionized Ca,Measured 4.10 mg/dL Low 4.30-5.20 [facility] Comment on above: Performed By: #### H EMDF, PT, BMP3M, PHOS3, MG3, CK3 #### [facility] [address] [place] [address] #### VD25H #### [facility] [address] [place] [address] pH, Ionized Calcium 7.40 Normal 7.31-7.46 [facility] Comment on above: Performed By: #### H EMDF, PT, BMP3M, PHOS3, MG3, CK3 #### [address] #### VD25H #### [facility] [address] [place] [address] Hemogram w/ Autodiffon 07-13 Abs Baso Cnt 0.0 10*3/uL Normal 0.0-0.2 [facility] Comment on above: Performed By: #### H EMDF, PT, BMP3M, PHOS3, MG3, CK3 #### [address] #### VD25H #### [place] [address] [place] [address] Abs Neutrophile Cnt 11.2 10*3/uL High 1.8-7.0 [facility] Comment on above: Performed By: #### H EMDF, PT, BMP3M, PHOS3, MG3, CK3 #### [address] #### VD25H #### [facility] [address] [place] [address] Basophils/100 WBC (Bld) 0.3 % Normal 0.0-2.0 [facility] Comment on above: Performed By: #### H EMDF, PT, BMP3M, PHOS3, MG3, CK3 #### [address] #### VD25H #### [facility] [address] [place] [address] Eosinophils #/vol (Bld) 0.2 10*3/uL Normal 0.0-0.5 [facility] Comment on above: Performed By: #### H EMDF, PT, BMP3M, PHOS3, MG3, CK3 #### [address] #### VD25H #### [facility] [address] [place] [address] Eosinophils/100 WBC (Bld) 1.1 % Normal 1.0-6.0 [facility] Comment on above: Performed By: #### H EMDF, PT, BMP3M, PHOS3, MG3, CK3 #### [address] #### VD25H #### [facility] [address] [place] [address] Erythrocyte distribution width Ratio (RBC) 13.9 % Normal 11.5-14.5 [facility] Comment on above: Performed By: #### H EMDF, PT, BMP3M, PHOS3, MG3, CK3 #### [address] #### VD25H #### [facility] [address] [place] [address] Granulocytes/100 WBC (Bld) 82.2 % High 40.0-80.0 [facility] Comment on above: Performed By: #### H EMDF, PT, BMP3M, PHOS3, MG3, CK3 #### [address] #### VD25H #### [facility] [address] [place] [address] Hematocrit Volume Fraction (Bld) 36.7 % Low 40.0-52.0 [facility] Comment on above: Performed By: #### H EMDF, PT, BMP3M, PHOS3, MG3, CK3 #### [address] #### VD25H #### [facility] [address] [place] [address] Hemoglobin mass conc (Bld) 12.6 g/dL Low 13.0-18.0 [facility] Comment on above: Performed By: #### H EMDF, PT, BMP3M, PHOS3, MG3, CK3 #### [address] #### VD25H #### [facility] [address] [place] [address] Lymphocytes #/vol (Bld) 1.1 10*3/uL Normal 1.0-4.3 [facility] Comment on above: Performed By: #### H EMDF, PT, BMP3M, PHOS3, MG3, CK3 #### [address] #### VD25H #### [facility] [address] [place] [address] Lymphocytes/100 WBC (Bld) 8.2 % Low 20.0-40.0 [facility] Comment on above: Performed By: #### H EMDF, PT, BMP3M, PHOS3, MG3, CK3 #### [address] #### VD25H #### [place] [address] [place] [address] MCH Entitic mass (RBC) 29.6 pg Normal 26.0-34.0 [facility] Comment on above: Performed By: #### H EMDF, PT, BMP3M, PHOS3, MG3, CK3 #### [address] #### VD25H #### [place] [address] [place] [address] MCHC mass conc (RBC) 34.4 % Normal 32.0-36.0 [facility] Comment on above: Performed By: #### H EMDF, PT, BMP3M, PHOS3, MG3, CK3 #### [address] #### VD25H #### [place] [address] [place] [address] MCV Entitic volume (RBC) 86.2 fL Normal 80.0-98.0 [facility] Comment on above: Performed By: #### H EMDF, PT, BMP3M, PHOS3, MG3, CK3 #### [address] [place] #### VD25H #### [facility] [address] [place] [address] Monocytes #/vol (Bld) 1.1 10*3/uL High 0.0-0.8 [facility] Comment on above: Performed By: #### H EMDF, PT, BMP3M, PHOS3, MG3, CK3 #### [address] [place], [place] #### VD25H #### [facility] [address] [place] [address] Monocytes/100 WBC (Bld) 8.2 % Normal 2.0-10.0 [facility] Comment on above: Performed By: #### H EMDF, PT, BMP3M, PHOS3, MG3, CK3 #### [address] #### VD25H #### [facility] [address] [place] [address] Platelet mean volume Entitic volume (Bld) 8.1 fL Normal 7.4-10.4 [facility] Comment on above: Performed By: #### H EMDF, PT, BMP3M, PHOS3, MG3, CK3 #### [address] #### VD25H #### [facility] [address] [place] [address] Platelets #/vol (Bld) 194 10*3/uL Normal 140-440 [facility] Comment on above: Performed By: #### H EMDF, PT, BMP3M, PHOS3, MG3, CK3 #### [address] #### VD25H #### [facility] [address] [place] [address] RBC #/vol (Bld) 4.26 10*6/uL Low 4.40-5.90 [facility] Comment on above: Performed By: #### H EMDF, PT, BMP3M, PHOS3, MG3, CK3 #### [address] #### VD25H #### [facility] [address] [place] [address] WBC #/vol (Bld) 13.7 10*3/uL High 3.6-10.7 [facility] Comment on above: Performed By: #### H EMDF, PT, BMP3M, PHOS3, MG3, CK3 #### [address] #### VD25H #### [place] [address] [place] [address] Arterial Blood Gaseson 07-12 CO2 molar conc 26.4 mmol/L Normal 23.0-27.0 [facility] Comment on above: Performed By: #### H EMDF, PT, BMP3M, PHOS3, MG3, CK3 #### [address] #### VD25H #### [facility] [address] [place] [address] HCO3 molar conc (Bld) 25.2 mmol/L High 21.0-25.0 [facility] Comment on above: Performed By: #### H EMDF, PT, BMP3M, PHOS3, MG3, CK3 #### [address] #### VD25H #### [facility] [address] [address] Hemoglobin mass conc (Bld) 13.9 g/dL Normal ScreenOnly [facility] Comment on above: Performed By: #### H EMDF, PT, BMP3M, PHOS3, MG3, CK3 #### [address] #### VD25H #### [place] [address] [place] [address] Oxygen ppres (Bld) 83.9 mm[Hg] Normal 80.0-100.0 [facility] Comment on above: Performed By: #### H EMDF, PT, BMP3M, PHOS3, MG3, CK3 #### [place] [address] [place], [place] #### VD25H #### [facility] [address] [place] [address] Oxygen saturation in Blood 96.3 % Normal 95.0-100.0 [facility] Comment on above: Performed By: #### H EMDF, PT, BMP3M, PHOS3, MG3, CK3 #### [address] #### VD25H #### [facility] [address] [place] [address] pCO2 38.2 mm[Hg] Normal 35.0-45.0 [facility] Comment on above: Performed By: #### H EMDF, PT, BMP3M, PHOS3, MG3, CK3 #### [address] #### VD25H #### [facility] [address] [place] [address] pH (Bld) 7.437 Normal 7.350-7.450 [facility] Comment on above: Performed By: #### H EMDF, PT, BMP3M, PHOS3, MG3, CK3 #### [address] #### VD25H #### [facility] [address] [place] [address] Std Base Excess 1.1 mmol/L Normal -3.0-3.0 [facility] Comment on above: Performed By: #### H EMDF, PT, BMP3M, PHOS3, MG3, CK3 #### [address] #### VD25H #### [facility] [address] [place] [address] FIO2 50% Normal [facility] Comment on above: Performed By: #### H EMDF, PT, BMP3M, PHOS3, MG3, CK3 #### [place] [address] [place] #### VD25H #### [facility] [address] [place] [address] CO2 molar conc 27.2 mmol/L High 23.0-27.0 [facility] Comment on above: Performed By: #### H EMDF, PT, BMP3M, PHOS3, MG3, CK3 #### [place] [address] [place] #### VD25H #### [facility] [address] [place] [address] HCO3 molar conc (Bld) 26.1 mmol/L High 21.0-25.0 [facility] Comment on above: Performed By: #### H EMDF, PT, BMP3M, PHOS3, MG3, CK3 #### [place] [address] [place] #### VD25H #### [facility] [address] [place] [address] Hemoglobin mass conc (Bld) 14.7 g/dL Normal ScreenOnly [facility] Comment on above: Performed By: #### H EMDF, PT, BMP3M, PHOS3, MG3, CK3 #### [place] [address] [place] #### VD25H #### [facility] [address] [place] [address] Oxygen ppres (Bld) 125.7 mm[Hg] High 80.0-100.0 [facility] Comment on above: Performed By: #### H EMDF, PT, BMP3M, PHOS3, MG3, CK3 #### [address] [place], [place] #### VD25H #### [facility] [address] [place] [address] Oxygen saturation in Blood 98.6 % Normal 95.0-100.0 [facility] Comment on above: Performed By: #### H EMDF, PT, BMP3M, PHOS3, MG3, CK3 #### [place] [address] [place] #### VD25H #### [facility] [address] [place] [address] pCO2 37.5 mm[Hg] Normal 35.0-45.0 [facility] Comment on above: Performed By: #### H EMDF, PT, BMP3M, PHOS3, MG3, CK3 #### [place] [address] [place] #### VD25H #### [facility] [address] [place] [address] pH (Bld) 7.460 High 7.350-7.450 [facility] Comment on above: Performed By: #### H EMDF, PT, BMP3M, PHOS3, MG3, CK3 #### [place] [address] [address] [place] #### VD25H #### [facility] [address] [place] [address] Std Base Excess 2.4 mmol/L Normal -3.0-3.0 [facility] Comment on above: Performed By: #### H EMDF, PT, BMP3M, PHOS3, MG3, CK3 #### [place] [address] [place] #### VD25H #### [facility] [address] [place] [address] FIO2 62.5 Normal [facility] Comment on above: Performed By: #### H EMDF, PT, BMP3M, PHOS3, MG3, CK3 #### [place] [address] [place] #### VD25H #### [facility] [address] [place] [address] Basic Metabolic Panelon 06-29 Anion gap molar conc 6 Normal [facility] Comment on above: Performed By: #### H EMDF, PT, BMP3M, PHOS3, MG3, CK3 #### [address] #### VD25H #### [facility] [address] [place] [address] Calcium mass conc 8.0 mg/dL Low 8.4-10.4 [facility] Comment on above: Performed By: #### H EMDF, PT, BMP3M, PHOS3, MG3, CK3 #### [address] [place] #### VD25H #### [facility] [address] [place] [address] CO2 molar conc 28 mmol/L Normal 22-30 [facility] Comment on above: Performed By: #### H EMDF, PT, BMP3M, PHOS3, MG3, CK3 #### [address] #### VD25H #### [facility] [address] [place] [address] Creatinine mass conc 0.62 mg/dL Normal 0.52-1.25 [facility] Comment on above: Performed By: #### H EMDF, PT, BMP3M, PHOS3, MG3, CK3 #### [address] #### VD25H #### [facility] [address] [place] [address] GFR/1.73 sq M predicted among blacks MDRD vol rate/area (S/P/Bld) mL/min/{1.73_m2} Normal >60 [facility] Comment on above: Performed By: #### H EMDF, PT, BMP3M, PHOS3, MG3, CK3 #### [address] #### VD25H #### [facility] [address] [place] [place] [address] GFR/1.73 sq M predicted among non-blacks MDRD vol rate/area (S/P/Bld) mL/min/{1.73_m2} Normal >60 [facility] Comment on above: Result Comment: Sour ce- MDRD equation with creatinine calibration to IDMS(NKDEP) eGFR not recommended for drug dose adjustment Performed By: #### H EMDF, PT, BMP3M, PHOS3, MG3, CK3 #### [facility] [address] [place] #### VD25H #### [facility] [address] [place] [address] Glucose mass conc 125 mg/dL High 70-100 [facility] Comment on above: Performed By: #### H EMDF, PT, BMP3M, PHOS3, MG3, CK3 #### [address] [place] #### VD25H #### [facility] [address] [place] [address] Urea nitrogen mass conc 12 mg/dL Normal 7-20 [facility] Comment on above: Performed By: #### H EMDF, PT, BMP3M, PHOS3, MG3, CK3 #### [place] [address] [address] [place] #### VD25H #### [facility] [address] [place] [address] Chloride molar conc 104 mmol/L Normal 98-107 [facility] Comment on above: Performed By: #### H EMDF, PT, BMP3M, PHOS3, MG3, CK3 #### [place] [address] [address] [place] #### VD25H #### [facility] [address] [place] [address] Potassium molar conc 3.6 mmol/L Normal 3.5-5.1 [facility] Comment on above: Performed By: #### H EMDF, PT, BMP3M, PHOS3, MG3, CK3 #### [place] [address] [address] [place] #### VD25H #### [facility] [address] [place] [address] Sodium molar conc 138 mmol/L Normal 135-145 [facility] Comment on above: Performed By: #### H EMDF, PT, BMP3M, PHOS3, MG3, CK3 #### [facility] [address] [place] [address] #### VD25H #### [facility] [address] [place] [address] CR Chest Portableon 07-13-19 19 CR Chest Portable Patient Name: KATHYA HOOPER Diagnostic Radiology Exam Date/Time 07/12/2018 10:18:11 EDT Exam CR Chest Portable Ordering Physician MARIA EUGENIA PEREZ Accession Number [id number] CPT4 Codes 79826 () Reason For Exam ETT Placement Report [...] Physician MD NATE, NICOLE LEYDI Accession Number [id number] CPT4 Codes 87550 () Reason For Exam dyspnea Report PORTABLE [...] Transcribed Date and Time: 07/12/2018 8:01 Normal [facility] Hemogram w/ Autodiffon 07-12 Abs Baso Cnt 0.0 10*3/uL Normal 0.0-0.2 [facility] Comment on above: Performed By: #### H EMDF, PT, BMP3M, PHOS3, MG3, CK3 #### [facility] [employer] [address] [place] [address] #### VD25H #### [facility] [address] [place] [address] Abs Neutrophile Cnt 10.2 10*3/uL High 1.8-7.0 [facility] Comment on above: Performed By: #### H EMDF, PT, BMP3M, PHOS3, MG3, CK3 #### [facility] [address] [place], [place] #### VD25H #### [facility] [address] [place] [address] Basophils/100 WBC (Bld) 0.4 % Normal 0.0-2.0 [facility] Comment on above: Performed By: #### H EMDF, PT, BMP3M, PHOS3, MG3, CK3 #### [address] #### VD25H #### [facility] [address] [place] [address] Eosinophils #/vol (Bld) 0.1 10*3/uL Normal 0.0-0.5 [facility] Comment on above: Performed By: #### H EMDF, PT, BMP3M, PHOS3, MG3, CK3 #### [address] #### VD25H #### [facility] [address] [place] [address] Eosinophils/100 WBC (Bld) 0.6 % Low 1.0-6.0 [facility] Comment on above: Performed By: #### H EMDF, PT, BMP3M, PHOS3, MG3, CK3 #### [address] [place], [place] #### VD25H #### [facility] [address] [place] [address] Erythrocyte distribution width Ratio (RBC) 13.5 % Normal 11.5-14.5 [facility] Comment on above: Performed By: #### H EMDF, PT, BMP3M, PHOS3, MG3, CK3 #### [address] #### VD25H #### [facility] [address] [place] [address] Granulocytes/100 WBC (Bld) 84.7 % High 40.0-80.0 [facility] Comment on above: Performed By: #### H EMDF, PT, BMP3M, PHOS3, MG3, CK3 #### [facility] [address] [place], [place] #### VD25H #### [facility] [address] [place] [address] Hematocrit Volume Fraction (Bld) 39.7 % Low 40.0-52.0 [facility] Comment on above: Performed By: #### H EMDF, PT, BMP3M, PHOS3, MG3, CK3 #### [address] #### VD25H #### [facility] [address] [place] [address] Hemoglobin mass conc (Bld) 13.5 g/dL Normal 13.0-18.0 [facility] Comment on above: Performed By: #### H EMDF, PT, BMP3M, PHOS3, MG3, CK3 #### [facility] [address] [place], [place] #### VD25H #### [facility] [address] [place] [address] Lymphocytes #/vol (Bld) 0.9 10*3/uL Low 1.0-4.3 [facility] Comment on above: Performed By: #### H EMDF, PT, BMP3M, PHOS3, MG3, CK3 #### [address] #### VD25H #### [facility] [address] [place] [address] Lymphocytes/100 WBC (Bld) 7.6 % Low 20.0-40.0 [facility] Comment on above: Performed By: #### H EMDF, PT, BMP3M, PHOS3, MG3, CK3 #### [address] #### VD25H #### [facility] [address] [place] [address] MCH Entitic mass (RBC) 29.6 pg Normal 26.0-34.0 [facility] Comment on above: Performed By: #### H EMDF, PT, BMP3M, PHOS3, MG3, CK3 #### [address] #### VD25H #### [facility] [address] [place] [address] MCHC mass conc (RBC) 34.1 % Normal 32.0-36.0 [facility] Comment on above: Performed By: #### H EMDF, PT, BMP3M, PHOS3, MG3, CK3 #### [address] #### VD25H #### [place] [address] [place] [address] MCV Entitic volume (RBC) 87.0 fL Normal 80.0-98.0 [facility] Comment on above: Performed By: #### H EMDF, PT, BMP3M, PHOS3, MG3, CK3 #### [address] #### VD25H #### [place] [address] [place] [address] Monocytes #/vol (Bld) 0.8 10*3/uL Normal 0.0-0.8 [facility] Comment on above: Performed By: #### H EMDF, PT, BMP3M, PHOS3, MG3, CK3 #### [address] #### VD25H #### [place] [address] [place] [address] Monocytes/100 WBC (Bld) 6.7 % Normal 2.0-10.0 [facility] Comment on above: Performed By: #### H EMDF, PT, BMP3M, PHOS3, MG3, CK3 #### [address] #### VD25H #### [facility] [address] [place] [address] Platelet mean volume Entitic volume (Bld) 8.4 fL Normal 7.4-10.4 [facility] Comment on above: Performed By: #### H EMDF, PT, BMP3M, PHOS3, MG3, CK3 #### [place] [address] [place], [place] #### VD25H #### [facility] [address] [place] [address] Platelets #/vol (Bld) 185 10*3/uL Normal 140-440 [facility] Comment on above: Performed By: #### H EMDF, PT, BMP3M, PHOS3, MG3, CK3 #### [address] #### VD25H #### [place] [address] [facility] [place] [address] RBC #/vol (Bld) 4.57 10*6/uL Normal 4.40-5.90 [facility] Comment on above: Performed By: #### H EMDF, PT, BMP3M, PHOS3, MG3, CK3 #### [address] #### VD25H #### [place] [address] [place] [address] WBC #/vol (Bld) 12.1 10*3/uL High 3.6-10.7 [facility] Comment on above: Performed By: #### H EMDF, PT, BMP3M, PHOS3, MG3, CK3 #### [address] [place], [place] #### VD25H #### [place] [address] [place] [address] VL Venous Duplex US Lower Ex t Bilateralon 07-12-2018 VL Venous Duplex US Lower Ext Bilateral Patient Name: KATHYA HOOPER Ultrasound Exam Date/Time 07/12/2018 17:20:46 EDT Exam VL Venous Duplex US Lower Ext Bilateral Ordering Physician MD AVELAR ADAM Accession Number [id number] CPT4 Codes 51049 () Reason For Exam leg swelling Report [facility] --- Lower Extremity Venous Duplex Report Patient Name: Kathya Hooper : 1955 Study Date: 07/12/2018 W (63yrs) Age: 63 Account: [id number] Gender: M Loc: T209 BP: Ordering: Joshua Avelar Technologist: Ordering Physician: Joshua Avelar Internet Marketing Assistant: Elizabeth Sanford RVT Interpreting Physician: Krysta Arora --- Location: [facility] --- INDICATIONS: Edema. bilateral calves. --- [...] performed. The images were obtained using a [employer] E9 vascular ultrasound machine. --- VENOUS FLOW [...] ---------+-------+--- --+ Electronically signed by: Krysta Arora [id number] Final Dictated: 07/13/2018 8:45 am Dictating Physician: KRYSTA ARORA Signed Date and Time: 07/13/2018 8:45 am Signed by: KRYSTA ARORA Normal [facility] [employer] Basic Metabolic Panelon 06-29 Calcium mass conc 7.8 mg/dL Low 8.4-10.4 [facility] Comment on above: Performed By: #### H EMDF, PT, BMP3M, PHOS3, MG3, CK3 #### [employer] [address] [place] [address] #### VD25H #### [employer] [address] [place] [address] Anion gap molar conc 4 Normal [facility] [facility] Comment on above: Performed By: #### H EMDF, PT, BMP3M, PHOS3, MG3, CK3 #### [employer] [address] [place] [address] #### VD25H #### [facility] [address] [place] [address] CO2 molar conc 26 mmol/L Normal 22-30 [facility] Comment on above: Performed By: #### H EMDF, PT, BMP3M, PHOS3, MG3, CK3 #### [facility] [address] [place], [place] #### VD25H #### [facility] [address] [place] [address] Glucose mass conc 118 mg/dL High 70-100 [facility] Comment on above: Performed By: #### H EMDF, PT, BMP3M, PHOS3, MG3, CK3 #### [address] #### VD25H #### [place] [address] [place] [address] Urea nitrogen mass conc 19 mg/dL Normal 7-20 [facility] Comment on above: Performed By: #### H EMDF, PT, BMP3M, PHOS3, MG3, CK3 #### [address] #### VD25H #### [facility] [address] [place] [address] Creatinine mass conc 0.74 mg/dL Normal 0.52-1.25 [facility] Comment on above: Performed By: #### H EMDF, PT, BMP3M, PHOS3, MG3, CK3 #### [address] #### [id number] #### [facility] [address] [place] [address] GFR/1.73 sq M predicted among blacks MDRD vol rate/area (S/P/Bld) mL/min/{1.73_m2} Normal >60 [facility] Comment on above: Performed By: #### H EMDF, PT, BMP3M, PHOS3, MG3, CK3 #### [address] #### [id number] #### [facility] [address] [place] [address] GFR/1.73 sq M predicted among non-blacks MDRD vol rate/area (S/P/Bld) mL/min/{1.73_m2} Normal >60 [facility] Comment on above: Result Comment: Sour ce- MDRD equation with creatinine calibration to IDMS(NKDEP) eGFR not recommended for drug dose adjustment Performed By: #### H EMDF, PT, BMP3M, PHOS3, MG3, CK3 #### [address] [address] #### VD25H #### [facility] [address] [place] [address] Chloride molar conc 112 mmol/L High 98-107 [facility] Comment on above: Performed By: #### H EMDF, PT, BMP3M, PHOS3, MG3, CK3 #### [address] #### VD25H #### [facility] [address] [place] [address] Potassium molar conc 3.8 mmol/L Normal 3.5-5.1 [facility] Comment on above: Performed By: #### H EMDF, PT, BMP3M, PHOS3, MG3, CK3 #### [address] #### VD25H #### [facility] [address] [place] [address] Sodium molar conc 141 mmol/L Normal 135-145 [facility] Comment on above: Performed By: #### H EMDF, PT, BMP3M, PHOS3, MG3, CK3 #### [address] #### VD25H #### [place] [address] [place] [address] CR Chest 1 View Frontalon CR Chest 1 View Frontal Patient Name: KATHYA FELDER Diagnostic Radiology Exam Date/Time 07/11/2018 06:36:48 EDT Exam CR Chest 1 View Frontal Ordering Physician MD AVELAR ADAM Accession Number [id number] CPT4 Codes 74707 () Reason For Exam dyspnea Report EXAM [...] Transcribed Date and Time: 07/11/2018 7:05 Normal [facility] Hemogram w/ Autodiffon 07-11 Abs Baso Cnt 0.0 10*3/uL Normal 0.0-0.2 [facility] Comment on above: Performed By: #### H EMDF, PT, BMP3M, PHOS3, MG3, CK3 #### [facility] [address] [place] [address] #### VD25H #### [facility] [address] [place] [address] Abs Neutrophile Cnt 8.8 10*3/uL High 1.8-7.0 [facility] Comment on above: Performed By: #### H EMDF, PT, BMP3M, PHOS3, MG3, CK3 #### [facility] [address] [place], [place] #### VD25H #### [facility] [address] [place] [address] Basophils/100 WBC (Bld) 0.4 % Normal 0.0-2.0 [facility] Comment on above: Performed By: #### H EMDF, PT, BMP3M, PHOS3, MG3, CK3 #### [facility] [address] [place], [place] #### VD25H #### [facility] [address] [place] [address] Eosinophils #/vol (Bld) 0.0 10*3/uL Normal 0.0-0.5 [facility] Comment on above: Performed By: #### H EMDF, PT, BMP3M, PHOS3, MG3, CK3 #### [address] #### VD25H #### [facility] [address] [place] [address] Eosinophils/100 WBC (Bld) 0.4 % Low 1.0-6.0 [facility] Comment on above: Performed By: #### H EMDF, PT, BMP3M, PHOS3, MG3, CK3 #### [address] #### VD25H #### [facility] [address] [place] [address] Erythrocyte distribution width Ratio (RBC) 13.7 % Normal 11.5-14.5 [facility] Comment on above: Performed By: #### H EMDF, PT, BMP3M, PHOS3, MG3, CK3 #### [address] #### VD25H #### [facility] [address] [place] [address] Granulocytes/100 WBC (Bld) 80.6 % High 40.0-80.0 [facility] Comment on above: Performed By: #### H EMDF, PT, BMP3M, PHOS3, MG3, CK3 #### [address] [place], [place] #### VD25H #### [facility] [address] [place] [address] Hematocrit Volume Fraction (Bld) 32.8 % Low 40.0-52.0 [facility] Comment on above: Performed By: #### H EMDF, PT, BMP3M, PHOS3, MG3, CK3 #### [place] [address] [place], [place] #### VD25H #### [facility] [address] [place] [address] Hemoglobin mass conc (Bld) 11.4 g/dL Low 13.0-18.0 [facility] Comment on above: Performed By: #### H EMDF, PT, BMP3M, PHOS3, MG3, CK3 #### [address] #### VD25H #### [facility] [address] [place] [address] Lymphocytes #/vol (Bld) 1.3 10*3/uL Normal 1.0-4.3 [facility] Comment on above: Performed By: #### H EMDF, PT, BMP3M, PHOS3, MG3, CK3 #### [address] #### VD25H #### [facility] [address] [place] [address] Lymphocytes/100 WBC (Bld) 11.5 % Low 20.0-40.0 [facility] Comment on above: Performed By: #### H EMDF, PT, BMP3M, PHOS3, MG3, CK3 #### [address] #### VD25H #### [place] [address] [place] [address] MCH Entitic mass (RBC) 30.2 pg Normal 26.0-34.0 [facility] Comment on above: Performed By: #### H EMDF, PT, BMP3M, PHOS3, MG3, CK3 #### [address] #### VD25H #### [facility] [address] [place] [address] MCHC mass conc (RBC) 34.7 % Normal 32.0-36.0 [facility] Comment on above: Performed By: #### H EMDF, PT, BMP3M, PHOS3, MG3, CK3 #### [address] #### VD25H #### [facility] [address] [place] [address] MCV Entitic volume (RBC) 86.9 fL Normal 80.0-98.0 [facility] Comment on above: Performed By: #### H EMDF, PT, BMP3M, PHOS3, MG3, CK3 #### [address] #### VD25H #### [facility] [address] [place] [address] Monocytes #/vol (Bld) 0.8 10*3/uL Normal 0.0-0.8 [facility] Comment on above: Performed By: #### H EMDF, PT, BMP3M, PHOS3, MG3, CK3 #### [address] #### VD25H #### [facility] [address] [place] [address] Monocytes/100 WBC (Bld) 7.1 % Normal 2.0-10.0 [facility] Comment on above: Performed By: #### H EMDF, PT, BMP3M, PHOS3, MG3, CK3 #### [address] #### VD25H #### [facility] [address] [place] [address] Platelet mean volume Entitic volume (Bld) 8.8 fL Normal 7.4-10.4 [facility] Comment on above: Performed By: #### H EMDF, PT, BMP3M, PHOS3, MG3, CK3 #### [facility] [address] [place], [place] #### VD25H #### [facility] [address] [place] [address] Platelets #/vol (Bld) 158 10*3/uL Normal 140-440 [facility] Comment on above: Performed By: #### H EMDF, PT, BMP3M, PHOS3, MG3, CK3 #### [address] #### VD25H #### [facility] [address] [place] [address] RBC #/vol (Bld) 3.78 10*6/uL Low 4.40-5.90 [facility] Comment on above: Performed By: #### H EMDF, PT, BMP3M, PHOS3, MG3, CK3 #### [address] #### VD25H #### [facility] [address] [place] [address] WBC #/vol (Bld) 10.9 10*3/uL High 3.6-10.7 [facility] Comment on above: Performed By: #### H EMDF, PT, BMP3M, PHOS3, MG3, CK3 #### [facility] [address] [place], [place] #### VD25H #### [facility] [address] [place] [address] Magnesiumon 07-11-2018 Magnesium mass conc 2.3 mg/dL Normal 1.6-2.3 [facility] Comment on above: Performed By: #### H EMDF, PT, BMP3M, PHOS3, MG3, CK3 #### [address] #### VD25H #### [facility] [address] [place] [address] Phosphoruson 07-11-2018 Phosphate mass conc 2.8 mg/dL Normal 2.5-4.5 [facility] Comment on above: Performed By: #### H EMDF, PT, BMP3M, PHOS3, MG3, CK3 #### [facility] [address] [place], [place] #### VD25H #### [facility] [address] [place] [address] Basic Metabolic Panelon 06-29 Calcium mass conc 8.9 mg/dL Normal 8.4-10.4 [facility] Comment on above: Performed By: #### H EMDF, PT, BMP3M, PHOS3, MG3, CK3 #### [place] [address] [place], [place] #### VD25H #### [place] [address] [place] [address] Glucose mass conc 133 mg/dL High 70-100 [facility] Comment on above: Performed By: #### H EMDF, PT, BMP3M, PHOS3, MG3, CK3 #### [address], [place] #### VD25H #### [facility] [address] [place] [address] Anion gap molar conc 4 Normal [facility] Comment on above: Performed By: #### H EMDF, PT, BMP3M, PHOS3, MG3, CK3 #### [place] [address] [address] [facility], [place] #### VD25H #### [facility] [address] [place] [address] CO2 molar conc 27 mmol/L Normal 22-30 [facility] Comment on above: Performed By: #### H EMDF, PT, BMP3M, PHOS3, MG3, CK3 #### [place] [address] [place], [place] #### VD25H #### [facility] [address] [place] [address] Creatinine mass conc 0.69 mg/dL Normal 0.52-1.25 [facility] Comment on above: Performed By: #### H EMDF, PT, BMP3M, PHOS3, MG3, CK3 #### [address] #### VD25H #### [facility] [address] [place] [address] GFR/1.73 sq M predicted among blacks MDRD vol rate/area (S/P/Bld) mL/min/{1.73_m2} Normal >60 [facility] Comment on above: Performed By: #### H EMDF, PT, BMP3M, PHOS3, MG3, CK3 #### [address] #### VD25H #### [facility] [address] [place] [address] GFR/1.73 sq M predicted among non-blacks MDRD vol rate/area (S/P/Bld) mL/min/{1.73_m2} Normal >60 [facility] Comment on above: Result Comment: Sour ce- MDRD equation with creatinine calibration to IDMS(NKDEP) eGFR not recommended for drug dose adjustment Performed By: #### H EMDF, PT, BMP3M, PHOS3, MG3, CK3 #### [address] #### VD25H #### [facility] [address] [place] [address] Urea nitrogen mass conc 16 mg/dL Normal 7-20 [facility] Comment on above: Performed By: #### H EMDF, PT, BMP3M, PHOS3, MG3, CK3 #### [address] #### VD25H #### [facility] [address] [place] [address] Potassium molar conc 4.1 mmol/L Normal 3.5-5.1 [facility] Comment on above: Performed By: #### H EMDF, PT, BMP3M, PHOS3, MG3, CK3 #### [place] [address] [address] [place], [place] #### VD25H #### [facility] [address] [place] [address] Sodium molar conc 142 mmol/L Normal 135-145 [facility] Comment on above: Performed By: #### H EMDF, PT, BMP3M, PHOS3, MG3, CK3 #### [place] [address] [address] [place], [place] #### VD25H #### [facility] [address] [place] [address] Chloride molar conc 110 mmol/L High 98-107 [facility] Comment on above: Performed By: #### H EMDF, PT, BMP3M, PHOS3, MG3, CK3 #### [place] [address] [place] #### VD25H #### [facility] [address] [place] [address] CKon 07-10-2018 CK enzyme act/vol 1291 U/L High 30-170 [facility] Comment on above: Performed By: #### H EMDF, PT, BMP3M, PHOS3, MG3, CK3 #### [place] [address] [place] #### VD25H #### [facility] [address] [place] [address] CK enzyme act/vol 1382 U/L High 30-170 [facility] Comment on above: Performed By: #### H EMDF, PT, BMP3M, PHOS3, MG3, CK3 #### [place] [address] [address] [place], [place] #### VD25H #### [facility] [address] [place] [address] CR Chest 1 View Frontalon CR Chest 1 View Frontal Patient Name: KATHYA FELDER [facility]: [id number] Diagnostic Radiology Exam Date/Time 07/10/2018 06:38:06 EDT Exam CR Chest 1 View Frontal Ordering Physician [facility] Accession Number [id number] CPT4 Codes 29112 () Reason For Exam dyspnea Report EXAMINATION: [...] Transcribed Date and Time: 07/10/2018 8:57 Normal [facility] Hemogram w/ Autodiffon 07-10 Abs Baso Cnt 0.0 10*3/uL Normal 0.0-0.2 [facility] Comment on above: Performed By: #### H EMDF, PT, BMP3M, PHOS3, MG3, CK3 #### [facility] [address] [place] [address] #### VD25H #### [facility] [address] [place] [address] Abs Neutrophile Cnt 12.2 10*3/uL High 1.8-7.0 [facility] Comment on above: Performed By: #### H EMDF, PT, BMP3M, PHOS3, MG3, CK3 #### [facility] [address] [place], [place] #### VD25H #### [facility] [address] [place] [address] Basophils/100 WBC (Bld) 0.3 % Normal 0.0-2.0 [facility] Comment on above: Performed By: #### H EMDF, PT, BMP3M, PHOS3, MG3, CK3 #### [place] [address] [address] [place], [place] #### VD25H #### [facility] [address] [place] [address] Eosinophils #/vol (Bld) 0.0 10*3/uL Normal 0.0-0.5 [facility] Comment on above: Performed By: #### H EMDF, PT, BMP3M, PHOS3, MG3, CK3 #### [address] #### VD25H #### [facility] [address] [place] [address] Eosinophils/100 WBC (Bld) 0.0 % Low 1.0-6.0 [facility] Comment on above: Performed By: #### H EMDF, PT, BMP3M, PHOS3, MG3, CK3 #### [address] #### VD25H #### [facility] [address] [place] [address] Erythrocyte distribution width Ratio (RBC) 13.9 % Normal 11.5-14.5 [facility] Comment on above: Performed By: #### H EMDF, PT, BMP3M, PHOS3, MG3, CK3 #### [address] #### VD25H #### [facility] [address] [place] [address] Granulocytes/100 WBC (Bld) 89.5 % High 40.0-80.0 [facility] Comment on above: Performed By: #### H EMDF, PT, BMP3M, PHOS3, MG3, CK3 #### [address] [place], [place] #### VD25H #### [facility] [address] [place] [address] Hematocrit Volume Fraction (Bld) 36.0 % Low 40.0-52.0 [facility] Comment on above: Performed By: #### H EMDF, PT, BMP3M, PHOS3, MG3, CK3 #### [address] [place], [place] #### VD25H #### [facility] [address] [place] [address] Hemoglobin mass conc (Bld) 12.3 g/dL Low 13.0-18.0 [facility] Comment on above: Performed By: #### H EMDF, PT, BMP3M, PHOS3, MG3, CK3 #### [address] #### VD25H #### [facility] [address] [place] [address] Lymphocytes #/vol (Bld) 0.6 10*3/uL Low 1.0-4.3 [facility] Comment on above: Performed By: #### H EMDF, PT, BMP3M, PHOS3, MG3, CK3 #### [address] #### VD25H #### [facility] [address] [place] [address] Lymphocytes/100 WBC (Bld) 4.3 % Low 20.0-40.0 [facility] Comment on above: Performed By: #### H EMDF, PT, BMP3M, PHOS3, MG3, CK3 #### [address] #### VD25H #### [facility] [address] [place] [address] MCH Entitic mass (RBC) 29.8 pg Normal 26.0-34.0 [facility] Comment on above: Performed By: #### H EMDF, PT, BMP3M, PHOS3, MG3, CK3 #### [address] #### VD25H #### [facility] [address] [place] [address] MCHC mass conc (RBC) 34.2 % Normal 32.0-36.0 [facility] Comment on above: Performed By: #### H EMDF, PT, BMP3M, PHOS3, MG3, CK3 #### [address] #### VD25H #### [facility] [address] [place] [address] MCV Entitic volume (RBC) 87.1 fL Normal 80.0-98.0 [facility] Comment on above: Performed By: #### H EMDF, PT, BMP3M, PHOS3, MG3, CK3 #### [address] #### VD25H #### [facility] [address] [place] [address] Monocytes #/vol (Bld) 0.8 10*3/uL Normal 0.0-0.8 [facility] Comment on above: Performed By: #### H EMDF, PT, BMP3M, PHOS3, MG3, CK3 #### [address] #### VD25H #### [facility] [address] [place] [address] Monocytes/100 WBC (Bld) 5.9 % Normal 2.0-10.0 [facility] Comment on above: Performed By: #### H EMDF, PT, BMP3M, PHOS3, MG3, CK3 #### [address] #### VD25H #### [facility] [address] [place] [address] Platelet mean volume Entitic volume (Bld) 8.4 fL Normal 7.4-10.4 [facility] Comment on above: Performed By: #### H EMDF, PT, BMP3M, PHOS3, MG3, CK3 #### [facility] [address] [place], [place] #### VD25H #### [facility] [address] [place] [address] Platelets #/vol (Bld) 155 10*3/uL Normal 140-440 [facility] Comment on above: Performed By: #### H EMDF, PT, BMP3M, PHOS3, MG3, CK3 #### [address] #### VD25H #### [facility] [address] [place] [address] RBC #/vol (Bld) 4.13 10*6/uL Low 4.40-5.90 [facility] Comment on above: Performed By: #### H EMDF, PT, BMP3M, PHOS3, MG3, CK3 #### [address] #### VD25H #### [facility] [address] [place] [address] WBC #/vol (Bld) 13.6 10*3/uL High 3.6-10.7 [facility] Comment on above: Performed By: #### H EMDF, PT, BMP3M, PHOS3, MG3, CK3 #### [address] #### VD25H #### [facility] [address] [place] [address] Magnesiumon 07-10-2018 Magnesium mass conc 2.3 mg/dL Normal 1.6-2.3 [facility] Comment on above: Performed By: #### H EMDF, PT, BMP3M, PHOS3, MG3, CK3 #### [address] #### VD25H #### [facility] [address] [place] [address] Phosphoruson 07-10-2018 Phosphate mass conc 2.7 mg/dL Normal 2.5-4.5 [facility] Comment on above: Performed By: #### H EMDF, PT, BMP3M, PHOS3, MG3, CK3 #### [place] [address] [address] [place], [place] #### VD25H #### [facility] [address] [place] [address] Add on test from HISon 07-09 Add on test from HIS Accepted Normal [facility] Comment on above: Result Comment: Spec imen available & acceptable for analysis. Performed By: #### A DDON #### [address] Arterial Blood Gaseson 07-09 CO2 molar conc 24.5 mmol/L Normal 23.0-27.0 [facility] Comment on above: Performed By: #### H EMDF, PT, BMP3M, PHOS3, MG3, CK3 #### [address] #### VD25H #### [place] [address] [place] [address] HCO3 molar conc (Bld) 23.2 mmol/L Normal 21.0-25.0 [facility] Comment on above: Performed By: #### H EMDF, PT, BMP3M, PHOS3, MG3, CK3 #### [address] [place], [place] #### VD25H #### [facility] [address] [place] [address] Hemoglobin mass conc (Bld) 15.7 g/dL Normal ScreenOnly [facility] Comment on above: Performed By: #### H EMDF, PT, BMP3M, PHOS3, MG3, CK3 #### [address] [place] [address] [place], [place] #### VD25H #### [place] [address] [place] [address] Oxygen ppres (Bld) 397.4 mm[Hg] High 80.0-100.0 [facility] Comment on above: Performed By: #### H EMDF, PT, BMP3M, PHOS3, MG3, CK3 #### [place] [address] [address] [place], [place] #### VD25H #### [facility] [address] [place] [address] Oxygen saturation in Blood 99.2 % Normal 95.0-100.0 [facility] Comment on above: Performed By: #### H EMDF, PT, BMP3M, PHOS3, MG3, CK3 #### [address] #### VD25H #### [address] [place] [address] pCO2 42.3 mm[Hg] Normal 35.0-45.0 [facility] Comment on above: Performed By: #### H EMDF, PT, BMP3M, PHOS3, MG3, CK3 #### [address] #### VD25H #### [address] [place] [address] pH (Bld) 7.357 Normal 7.350-7.450 [facility] Comment on above: Performed By: #### H EMDF, PT, BMP3M, PHOS3, MG3, CK3 #### [place] [address] [address] [place], [place] #### VD25H #### [place] [address] [place] [address] Std Base Excess -2.3 mmol/L Normal -3.0-3.0 [facility] Comment on above: Performed By: #### H EMDF, PT, BMP3M, PHOS3, MG3, CK3 #### [address] #### VD25H #### [place] [address] [place] [address] FIO2 100% Normal [facility] Comment on above: Performed By: #### H EMDF, PT, BMP3M, PHOS3, MG3, CK3 #### [place] [address] [address] [place], [place] #### VD25H #### [facility] [address] [place] [address] Basic Metabolic Panelon 06-29 Calcium mass conc 8.6 mg/dL Normal 8.4-10.4 [facility] Comment on above: Performed By: #### H EMDF, PT, BMP3M, PHOS3, MG3, CK3 #### [address] #### VD25H #### [place] [address] [place] [address] Glucose mass conc 150 mg/dL High 70-100 [facility] Comment on above: Performed By: #### H EMDF, PT, BMP3M, PHOS3, MG3, CK3 #### [address] #### VD25H #### [facility] [address] [place] [address] Anion gap molar conc 7 Normal [facility] Comment on above: Performed By: #### H EMDF, PT, BMP3M, PHOS3, MG3, CK3 #### [address] #### VD25H #### [facility] [address] [place] [address] CO2 molar conc 26 mmol/L Normal 22-30 [facility] Comment on above: Performed By: #### H EMDF, PT, BMP3M, PHOS3, MG3, CK3 #### [address] #### VD25H #### [facility] [address] [place] [address] Creatinine mass conc 0.80 mg/dL Normal 0.52-1.25 [facility] Comment on above: Performed By: #### H EMDF, PT, BMP3M, PHOS3, MG3, CK3 #### [address] #### VD25H #### [facility] [address] [place] [address] GFR/1.73 sq M predicted among blacks MDRD vol rate/area (S/P/Bld) mL/min/{1.73_m2} Normal >60 [facility] Comment on above: Performed By: #### H EMDF, PT, BMP3M, PHOS3, MG3, CK3 #### [address] #### VD25H #### [facility] [address] [place] [address] GFR/1.73 sq M predicted among non-blacks MDRD vol rate/area (S/P/Bld) mL/min/{1.73_m2} Normal >60 [facility] Comment on above: Result Comment: Sour ce- MDRD equation with creatinine calibration to IDMS(NKDEP) eGFR not recommended for drug dose adjustment Performed By: #### H EMDF, PT, BMP3M, PHOS3, MG3, CK3 #### [address] #### VD25H #### [facility] [address] [place] [address] Urea nitrogen mass conc 16 mg/dL Normal 7-20 [facility] Comment on above: Performed By: #### H EMDF, PT, BMP3M, PHOS3, MG3, CK3 #### [address] #### VD25H #### [facility] [address] [place] [address] Chloride molar conc 110 mmol/L High 98-107 [facility] Comment on above: Performed By: #### H EMDF, PT, BMP3M, PHOS3, MG3, CK3 #### [facility] [address] [place], [place] #### VD25H #### [facility] [address] [place] [address] Potassium molar conc 4.7 mmol/L Normal 3.5-5.1 [facility] Comment on above: Performed By: #### H EMDF, PT, BMP3M, PHOS3, MG3, CK3 #### [facility] [address] [place], [place] #### VD25H #### [facility] [address] [place] [address] Sodium molar conc 143 mmol/L Normal 135-145 [facility] Comment on above: Performed By: #### H EMDF, PT, BMP3M, PHOS3, MG3, CK3 #### [place] [address] [address] [place], [place] #### VD25H #### [facility] [address] [place] [address] CKon 07-09-2018 CK enzyme act/vol 1451 U/L High 30-170 [facility] Comment on above: Performed By: #### H EMDF, PT, BMP3M, PHOS3, MG3, CK3 #### [place] [address] [address] [place], [place] #### [id number] #### [facility] [address] [place] [address] CK enzyme act/vol 3832 U/L High 30-170 [facility] Comment on above: Performed By: #### H EMDF, PT, BMP3M, PHOS3, MG3, CK3 #### [place] [address] [address] [place], [place] #### [id number] #### [facility] [address] [place] [address] CR Chest 1 View Frontalon CR Chest 1 View Frontal Patient Name: KATHYA FELDER Diagnostic Radiology Exam Date/Time 07/09/2018 06:21:56 EDT Exam CR Chest 1 View Frontal Ordering Physician MD NATE, [facility] Accession Number [id number] CPT4 Codes 75060 () Reason For Exam dyspnea Report CHEST [...] Transcribed Date and Time: 07/09/2018 6:39 Normal [facility] CR Chest Portableon 07-10-19 19 CR Chest Portable Patient Name: KATHYA HOOPER Diagnostic Radiology Exam Date/Time 07/09/2018 11:34:09 EDT Exam CR Chest Portable Ordering Physician INDRA JACOBSON Accession Number [id number] CPT4 Codes 50358 () Reason For Exam Central line placement [...] JOHN Transcribed Date and Time: 07/09/2018 1:01 [facility] CR Chest Portable Patient Name: KATHYA HOOPER Diagnostic Radiology Exam Date/Time 07/09/2018 03:05:20 EDT Exam CR Chest Portable Ordering Physician MD NATE, NICOLE HOLLEY Accession Number [id number] CPT4 Codes 22821 () Reason For Exam intubation Report CHEST PORTABLE: Indication: Inpatient; intubation Views: Portable frontal Comparison: 07/08/2018 at 22:16 Time: 07/09/2018 at 2:46 FINDINGS: Interval intubation with endotracheal tube approximately 4.2 cm above the level of the alma. An enteric tube has been placed with distal tip below the hemidiaphragm but excluded from [id number]. Cardiac monitoring wires and leads are present. [...] R Transcribed Date and Time: 07/09/2018 3:10 [facility] CR Chest Portable Patient Name: KATHYA HOOPER Diagnostic Radiology Exam Date/Time 07/08/2018 22:31:57 EDT Exam CR Chest Portable Ordering Physician MD NATE, NICOLE HOLLEY Accession Number [id number] CPT4 Codes 79023 () Reason For Exam cough Report CHEST [...] Transcribed Date and Time: 07/08/2018 11:23 Normal [facility] CTA Head/Neck w/ + w/o contr birgit 07-09-2018 CTA Head/Neck w/ + w/o contrast Patient Name: KATHYA HOOPER CT Exam Date/Time 07/09/2018 04:42:10 EDT Exam CTA Head/Neck w/ + w/o contrast Ordering Physician MD OREILLY ALEKSANDAR Accession Number [id number] CPT4 Codes Q9967 (CT ISOVUE 370MG/[id number]), 14457 (), 17804 () Reason For Exam CERVICAL SPINE FRACTURE Report CLINICAL INFORMATION: C-spine fracture after trauma. Vascular injury suspected. CTA HEAD: After 75 ml Isovue IV contrast, 0.3 mm axial cuts were obtained through the brain. Coronal and sagittal reconstructions are reviewed. In addition, 3D images of the [place] were constructed by me and reviewed simultaneously on the separate [employer] Workstation. The examination is compared to a [...] Transcribed Date and Time: 07/09/2018 9:50 Normal [facility] Hemogram w/ Autodiffon 07-09 Abs Baso Cnt 0.1 10*3/uL Normal 0.0-0.2 [facility] Comment on above: Performed By: #### H EMDF, PT, BMP3M, PHOS3, MG3, CK3 #### [facility] [address] [place] [address] #### VD25H #### [facility] [address] [place] [address] Abs Neutrophile Cnt 13.3 10*3/uL High 1.8-7.0 [facility] Comment on above: Performed By: #### H EMDF, PT, BMP3M, PHOS3, MG3, CK3 #### [facility] [address] [place], [place] #### VD25H #### [facility] [address] [place] [address] Basophils/100 WBC (Bld) 0.3 % Normal 0.0-2.0 [facility] Comment on above: Performed By: #### H EMDF, PT, BMP3M, PHOS3, MG3, CK3 #### [place] [place], [place] #### VD25H #### [facility] [address] [place] [address] Eosinophils #/vol (Bld) 0.0 10*3/uL Normal 0.0-0.5 [facility] Comment on above: Performed By: #### H EMDF, PT, BMP3M, PHOS3, MG3, CK3 #### [address] #### VD25H #### [facility] [address] [place] [address] Eosinophils/100 WBC (Bld) 0.0 % Low 1.0-6.0 [facility] Comment on above: Performed By: #### H EMDF, PT, BMP3M, PHOS3, MG3, CK3 #### [address] #### VD25H #### [facility] [address] [place] [address] Erythrocyte distribution width Ratio (RBC) 13.7 % Normal 11.5-14.5 [facility] Comment on above: Performed By: #### H EMDF, PT, BMP3M, PHOS3, MG3, CK3 #### [address] #### VD25H #### [facility] [address] [place] [address] Granulocytes/100 WBC (Bld) 86.5 % High 40.0-80.0 [facility] Comment on above: Performed By: #### H EMDF, PT, BMP3M, PHOS3, MG3, CK3 #### [address] #### VD25H #### [facility] [address] [place] [address] Hematocrit Volume Fraction (Bld) 45.1 % Normal 40.0-52.0 [facility] Comment on above: Performed By: #### H EMDF, PT, BMP3M, PHOS3, MG3, CK3 #### [address] #### VD25H #### [facility] [address] [place] [address] Hemoglobin mass conc (Bld) 15.6 g/dL Normal 13.0-18.0 [facility] Comment on above: Performed By: #### H EMDF, PT, BMP3M, PHOS3, MG3, CK3 #### [address] #### VD25H #### [facility] [address] [place] [address] Lymphocytes #/vol (Bld) 0.8 10*3/uL Low 1.0-4.3 [facility] Comment on above: Performed By: #### H EMDF, PT, BMP3M, PHOS3, MG3, CK3 #### [address] #### VD25H #### [facility] [address] [place] [address] Lymphocytes/100 WBC (Bld) 5.5 % Low 20.0-40.0 [facility] Comment on above: Performed By: #### H EMDF, PT, BMP3M, PHOS3, MG3, CK3 #### [address] #### VD25H #### [facility] [address] [place] [address] MCH Entitic mass (RBC) 29.9 pg Normal 26.0-34.0 [facility] Comment on above: Performed By: #### H EMDF, PT, BMP3M, PHOS3, MG3, CK3 #### [address] [place], [place] #### VD25H #### [facility] [address] [place] [address] MCHC mass conc (RBC) 34.5 % Normal 32.0-36.0 [facility] Comment on above: Performed By: #### H EMDF, PT, BMP3M, PHOS3, MG3, CK3 #### [address] [place] [address] [place], [place] #### VD25H #### [facility] [address] [place] [address] MCV Entitic volume (RBC) 86.7 fL Normal 80.0-98.0 [facility] Comment on above: Performed By: #### H EMDF, PT, BMP3M, PHOS3, MG3, CK3 #### [address] #### VD25H #### [facility] [address] [place] [address] Monocytes #/vol (Bld) 1.2 10*3/uL High 0.0-0.8 [facility] Comment on above: Performed By: #### H EMDF, PT, BMP3M, PHOS3, MG3, CK3 #### [address] #### VD25H #### [facility] [address] [place] [address] Monocytes/100 WBC (Bld) 7.7 % Normal 2.0-10.0 [facility] Comment on above: Performed By: #### H EMDF, PT, BMP3M, PHOS3, MG3, CK3 #### [address] #### VD25H #### [facility] [address] [place] [address] Platelet mean volume Entitic volume (Bld) 8.1 fL Normal 7.4-10.4 [facility] Comment on above: Performed By: #### H EMDF, PT, BMP3M, PHOS3, MG3, CK3 #### [address] [place], [place] #### VD25H #### [facility] [address] [place] [address] Platelets #/vol (Bld) 197 10*3/uL Normal 140-440 [facility] Comment on above: Performed By: #### H EMDF, PT, BMP3M, PHOS3, MG3, CK3 #### [address] #### VD25H #### [facility] [address] [place] [address] RBC #/vol (Bld) 5.20 10*6/uL Normal 4.40-5.90 [facility] Comment on above: Performed By: #### H EMDF, PT, BMP3M, PHOS3, MG3, CK3 #### [address] #### VD25H #### [facility] [address] [place] [address] WBC #/vol (Bld) 15.4 10*3/uL High 3.6-10.7 [facility] Comment on above: Performed By: #### H EMDF, PT, BMP3M, PHOS3, MG3, CK3 #### [address] #### VD25H #### [facility] [address] [place] [address] MRI Spine Cervical w/o Contr birgit 07-09-2018 MRI Spine Cervical w/o Contrast Patient Name: KATHYA HOOPER MRI Exam Date/Time 07/09/2018 00:44:49 EDT Exam MRI Spine Cervical w/o Contrast Ordering Physician MD CHEYENNE, BRITTANY BERRY Accession Number [id number] CPT4 Codes 97878 () Reason For Exam CERVICAL SPINE FRACTURE [...] Transcribed Date and Time: 07/09/2018 7:45 Normal [facility] Magnesiumon 07-09-2018 Magnesium mass conc 2.2 mg/dL Normal 1.6-2.3 [facility] Comment on above: Performed By: #### H EMDF, PT, BMP3M, PHOS3, MG3, CK3 #### [address] #### VD25H #### [facility] [address] [place] [address] Phosphoruson 07-09-2018 Phosphate mass conc 4.0 mg/dL Normal 2.5-4.5 [facility] Comment on above: Performed By: #### H EMDF, PT, BMP3M, PHOS3, MG3, CK3 #### [address] #### VD25H #### [facility] [address] [place] Prothrombin Timeon 9 INR Coag RelTime (PPP) 1.0 Normal 0.9-1.1 [facility] Comment on above: [...] EMDF, PT, BMP3M, PHOS3, MG3, CK3 #### [address] #### VD25H #### [facility] [address] [place] [address] Prothrombin time (PT) Coag time (PPP) 10.3 s Normal 9.0-12.0 [facility] Comment on above: Result Comment: . Performed By: #### H EMDF, PT, BMP3M, PHOS3, MG3, CK3 #### [address] #### VD25H #### [facility] [address] [place] TS GELon 07-09-2018 TS GEL ABO Group: O Rh, Gel: POS Antibody Screen Gel: NEG Normal [facility] Comment on above: Performed By: #### T SGL #### [employer] [address] [place] [address] Vit D 25-OH, Totalon 019 Vit D 25-OH, Total 23 ng/mL Low 30-100 [facility] [employer] Comment on above: Result Comment: Ther apy is based on measurement of Total 25-OHD with the following classification levels: Less than 20 ng/mL: Indicative of Vit D deficiency 20-30 ng/mL: Suggests Vit D insufficiency Optimal: Greater than or equal to 30 ng/mL Test performed by [employer] Immunoassay, measuring Total Vitamin D, not individual fractions. Performed By: #### H EMDF, PT, BMP3M, PHOS3, MG3, CK3 #### [employer] [address] [place] [address] #### VD25H #### [employer] [address] [place] [address] Hematologyon 01-03-2003 Lymphocytes (Bld) [#/Vol] RECTUM, BIOPSY - BENIGN COLONIC MUCOSA WITH INTRAMUCOSAL LYMPHOID AGGREGATES. [facility] Otheron 01-03-2003 CONVERTED ELECTRONIC SIGNATURE BARBARA CASTILLO M.D., PATHOLOGIST (Electronic signature on file) Final Signed Out: 01/03/2003 15:09 [facility] CONVERTED ORDERING PROVIDER Ordering Provider: BENI VERA [facility] Culture, urine Bacteria identified Cx Nom (U) Culture exhibits no growth. [facility] Work Phone: Vital Signs Date Time Vital Sign Value Performing Clinician Facility 10-02-2023 13:56-0400 Diastolic blood pressure 62 mm[Hg] Fei Farooq MD Work Phone: [facility] 10-02-2023 13:56-0400 Heart rate 104 /min Fei Farooq MD Work Phone: [facility] 10-02-2023 13:56-0400 SaO2% (BldA) [Mass fraction] 94 % Fei Farooq MD Work Phone: [facility] 10-02-2023 13:56-0400 Systolic blood pressure 124 mm[Hg] Fei Farooq MD Work Phone: [employer] 10-02-2023 11:13-0400 Respiratory rate 16 /min Fei Farooq MD Work Phone: [employer] 10-02-2023 09:47-0400 Body mass index (BMI) [Ratio] 26.19 kg/m2 Fei Farooq MD Work Phone: [employer] 10-02-2023 09:47-0400 Body temperature 98.01 [degF] Fei Farooq MD Work Phone: [employer] 10-02-2023 09:47-0400 Body weight 92.53 kg Fei Farooq MD Work Phone: [employer] 05-20-2022 18:30-0500 Body mass index (BMI) [Ratio] 26.32 kg/m2 Abelardo Gombash DO Work Phone: [employer] 05-20-2022 18:30-0500 Body temperature 97.3 [degF] Abelardo Gombash DO Work Phone: [employer] 05-20-2022 18:30-0500 Body weight 92.99 kg Abelardo Gombash DO Work Phone: [employer] 05-20-2022 18:30-0500 Diastolic blood pressure 108 mm[Hg] Abelardo Gombash DO Work Phone: [employer] 05-20-2022 18:30-0500 Heart rate 100 /min Abelardo Gombash DO Work Phone: [employer] 05-20-2022 18:30-0500 Respiratory rate 14 /min Abelardo Gombash DO Work Phone: [employer] 05-20-2022 18:30-0500 SaO2% (BldA) [Mass fraction] 98 % Abelardo Gombash DO Work Phone: [employer] 05-20-2022 18:30-0500 Systolic blood pressure 125 mm[Hg] Abelardo Gombash DO Work Phone: [facility] 05-15-2021 09:40-0500 Body height 188 cm Timothy Micheal DO Work Phone: [facility] 05-15-2021 09:40-0500 Body mass index (BMI) [Ratio] 23.75 kg/m2 Timothy Micheal DO Work Phone: [facility] 05-15-2021 09:40-0500 Body weight 83.92 kg Timothy Micheal DO Work Phone: [facility] 05-15-2021 09:38-0500 Body temperature 97.59 [degF] Timothy Micheal DO Work Phone: [facility] 05-15-2021 09:38-0500 Diastolic blood pressure 76 mm[Hg] Timothy Micheal DO Work Phone: [facility] 05-15-2021 09:38-0500 Heart rate 102 /min Timothy Micheal DO Work Phone: [facility] 05-15-2021 09:38-0500 Respiratory rate 16 /min Timothy Micheal DO Work Phone: [facility] 05-15-2021 09:38-0500 SaO2% (BldA) [Mass fraction] 99 % Timothy Micheal DO Work Phone: [facility] 05-15-2021 09:38-0500 Systolic blood pressure 115 mm[Hg] Timothy Micheal DO Work Phone: [facility] 03-24-2021 10:20-0500 Respiratory rate 18 /min Brady Nesheim DO Work Phone: [facility] 03-24-2021 10:20-0500 SaO2% (BldA) [Mass fraction] 94 % Brady Nesheim DO Work Phone: [facility] 03-24-2021 08:44-0500 Body temperature 97.7 [degF] Brady Nesheim DO Work Phone: [facility] 03-24-2021 08:44-0500 Diastolic blood pressure 55 mm[Hg] Brady Nesheim DO Work Phone: [facility] 03-24-2021 08:44-0500 Heart rate 85 /min Brady Nesheim DO Work Phone: [facility] 03-24-2021 08:44-0500 Systolic blood pressure 85 mm[Hg] Brady Nesheim DO Work Phone: [facility] 03-20-2021 13:41-0500 Body height 188 cm Brady Nesheim DO Work Phone: [facility] 03-20-2021 11:16-0500 Body mass index (BMI) [Ratio] 23.86 kg/m2 Brady Nesheim DO Work Phone: [facility] 03-20-2021 11:16-0500 Body weight 84.32 kg Brady Nesheim DO Work Phone: [facility] Comment on above: per Nataly RN (bed scal e measurement) on 03/20/2021 03-18-2021 15:02-0500 Body temperature 99.5 [degF] Boo Castro MD Work Phone: [facility] 03-18-2021 15:02-0500 Diastolic blood pressure 82 mm[Hg] Boo Castro MD Work Phone: [facility] 03-18-2021 15:02-0500 Heart rate 111 /min Boo Castro MD Work Phone: [facility] 03-18-2021 15:02-0500 Respiratory rate 18 /min Boo Castro MD Work Phone: [facility] 03-18-2021 15:02-0500 SaO2% (BldA) [Mass fraction] 93 % Boo Castro MD Work Phone: [facility] 03-18-2021 15:02-0500 Systolic blood pressure 111 mm[Hg] Boo Castro MD Work Phone: [facility] 10-30-2020 17:10-0400 Diastolic blood pressure 82 mm[Hg] Bethany Clemons MD Work Phone: [facility] Work Phone: 10-30-2020 17:10-0400 Heart rate 110 /min Bethany Clemons MD Work Phone: [employer] Work Phone: 10-30-2020 17:10-0400 Respiratory rate 16 /min Bethany Clemons MD Work Phone: [employer] Work Phone: 10-30-2020 17:10-0400 SaO2% (BldA) [Mass fraction] 99 % Bethany Clemons MD Work Phone: [employer] Work Phone: 10-30-2020 17:10-0400 Systolic blood pressure 125 mm[Hg] Bethany Clemons MD Work Phone: [employer] Work Phone: 10-30-2020 13:02-0400 Body mass index (BMI) [Ratio] 24.65 kg/m2 Bethany Clemons MD Work Phone: [employer] Work Phone: 10-30-2020 13:02-0400 Body temperature 96.91 [degF] Bethany Clemons MD Work Phone: [employer] Work Phone: 10-30-2020 13:02-0400 Body weight 87.09 kg Bethany Clemons MD Work Phone: [employer] Work Phone: 09-22-2020 05:01-0400 Diastolic blood pressure 76 mm[Hg] Elizabeth Moura MD Work Phone: [employer] Work Phone: 09-22-2020 05:01-0400 Systolic blood pressure 114 mm[Hg] Elizabeth Moura MD Work Phone: [employer] Work Phone: 09-22-2020 00:26-0400 Body temperature 97.81 [degF] Elizabeth Moura MD Work Phone: [employer] Work Phone: 09-22-2020 00:26-0400 Heart rate 86 [...] 100 % Elizabeth Moura MD Work Phone: [facility] Work Phone: 05-16-2019 23:00-0500 Systolic blood pressure 115 mm[Hg] Elizabeth Moura MD Work Phone: [facility] Work Phone: 05-16-2019 19:57-0500 Body temperature 98.49 [degF] Elizabeth Moura MD Work Phone: [facility] Work Phone: NEGATED: Highlighted [id number] 14:34-0500 BMI (Body Mass Index) 22.16 kg/m2 Ana Stevenson WARNING ANALYST [facility] Work Phone: NEGATED: Highlighted [id number] 14:34-0500 Body weight 78.02 kg Ana Stevenson WARNING ANALYST [facility] Work Phone: NEGATED: Highlighted [id number] 14:34-0500 Body weight 78 kg Ana Stevenson WARNING ANALYST [facility] Work Phone: NEGATED: Highlighted [id number] 14:34-0500 BP Diastolic 66 mm[Hg] Ana Stevenson WARNING ANALYST [facility] Work Phone: NEGATED: Highlighted [id number] 14:34-0500 BP Systolic 102 mm[Hg] Ana Stevenson WARNING ANALYST [facility] Work Phone: NEGATED: Highlighted [id number] 14:34-0500 Height 187.96 cm Ana Stevenson LPN [facility] Work Phone: NEGATED: Highlighted [id number] 14:34-0500 Height 188 cm Ana Stevenson WARNING ANALYST [facility] Work Phone: NEGATED: Highlighted [id number] 14:34-0500 Pulse (Heart Rate) 104 /min Ana Stevenson LPN [facility] Work Phone: Encounters Encounter Date Encounter Type Care Provider Facility Start: 10-07-2024 ambulatory Renard GARLAND Faci lity:[facility] Start: 09-30-2024 ambulatory Renard GARLAND Faci lity:[facility] Start: 09-24-2024 ambulatory Renard GARLAND Faci lity:[facility] Start: 09-24-2024 Registered Referred Renard Burgos - [facility] Start: 09-16-2024 ambulatory Renard GARLAND Faci lity:[facility] Start: 09-16-2024 Registered Referred Renard Burgos - [facility] Start: 09-11-2024 Registered Referred Renard Burgos - [facility] Start: 09-11-2024 End: 09-11-2024 ambulatory Renard GARLAND Facility:[facility] Start: 09-09-2024 End: 09-09-2024 ambulatory Renard GARLAND [facility] Work Phone: Start: 09-09-2024 End: 09-09-2024 Departed Referred Renard Burgos -[facility] Start: 09-09-2024 Registered Referred Renard Burgos - [facility] Start: 09-09-2024 End: 09-09-2024 ambulatory Renard GARLAND Facility:[facility] Start: 09-02-2024 Registered Referred Renard BRUNO Start: 09-02-2024 End: 09-02-2024 ambulatory Renard GARLAND Facility:[facility] Start: 08-26-2024 End: 08-26-2024 ambulatory Renard Shelliediego G[place] [facility] Work Phone: Start: 08-26-2024 End: 08-26-2024 Departed Referred Renard Amezquitaros -[facility] Start: 08-26-2024 Registered Referred Renard Burgos - [facility] Start: 08-26-2024 End: 08-26-2024 ambulatory Renard GARLAND Facility:[facility] Start: 08-23-2024 End: 08-23-2024 Departed Referred Renard Amezquitaros -[facility] Start: 08-23-2024 Registered Referred Renard Amezquitaros - [facility] Start: 08-23-2024 End: 08-23-2024 ambulatory Renard GARLAND Facility:[facility] Start: 08-19-2024 End: 08-19-2024 ambulatory Renard Hensleydiego GILL [facility] Work Phone: Start: 08-19-2024 End: 08-19-2024 Departed Referred Renard Amezquitaros -[facility] Start: 08-19-2024 Registered Referred Renard Amezquitaros - [facility] [facility] Start: 08-19-2024 End: 08-19-2024 ambulatory Renard GARLAND Facility:[facility] Start: 08-12-2024 End: 08-12-2024 ambulatory Renard GARLAND [facility] Work Phone: Start: 08-12-2024 End: 08-12-2024 Departed Referred Renard Amezquitaros -[facility] Start: 08-12-2024 Registered Referred Renard Burgos - [facility] Start: 08-12-2024 End: 08-12-2024 ambulatory Renard GARLAND Facility:[facility] Start: 08-05-2024 End: 08-05-2024 Departed Referred Renard Amezquitaros -[facility] Start: 08-05-2024 Registered Referred Renard Amezquitaros - [facility] Start: 08-05-2024 End: 08-05-2024 ambulatory Renard GARLAND Facility:[facility] Start: 07-29-2024 End: 07-29-2024 ambulatory Renard GARLAND [facility] Work Phone: Start: 07-29-2024 End: 07-29-2024 Departed Referred Renard Burgos -[facility] Start: 07-29-2024 Registered Referred Renard Burgos - [facility] Start: 07-29-2024 End: 07-29-2024 ambulatory Renard GARLAND Facility:[facility] Start: 07-22-2024 End: 07-22-2024 ambulatory Renard GARLAND [facility] Work Phone: Start: 07-22-2024 End: 07-22-2024 Departed Referred Renard Burgos -[facility] Start: 07-22-2024 Registered Referred Renard Burgos - [facility] [facility] Start: 07-22-2024 End: 07-22-2024 ambulatory Renard GARLAND Facility:[facility] Start: 07-16-2024 End: 07-16-2024 ambulatory Renard GARLAND [facility] Work Phone: Start: 07-16-2024 End: 07-16-2024 Departed Referred Renard Burgos -[facility] [employer] [facility] Start: 07-16-2024 Registered Referred Renard Burgos - [facility] [facility] Start: 07-15-2024 End: 07-16-2024 ambulatory Renard GARLAND [facility] Work Phone: Start: 07-15-2024 End: 07-15-2024 Departed Referred Renard Burgos -[facility] [employer] [facility] Start: 07-15-2024 Registered Referred Renard Burgos - [facility] [facility] Start: 07-15-2024 End: 07-15-2024 ambulatory Renard GARLAND Facility:[facility] Start: 07-08-2024 End: 07-08-2024 ambulatory Renard GARLAND [facility] Work Phone: Start: 07-08-2024 End: 07-08-2024 Departed Referred Renard Burgos -[facility] Start: 07-08-2024 Registered Referred Renard Burgos - [facility] [employer] [facility] Start: 07-08-2024 End: 07-08-2024 ambulatory Renard GARLAND Facility:[facility] Start: 07-01-2024 End: 07-01-2024 ambulatory Renard GARLAND [facility] Work Phone: Start: 07-01-2024 End: 07-01-2024 Departed Referred Renard Burgos -[facility] Start: 07-01-2024 Registered Referred Renard Burgos - [facility] Start: 07-01-2024 End: 07-01-2024 ambulatory Renard GARLAND Facility:[facility] Start: 06-27-2024 End: 06-27-2024 ambulatory Renard GARLAND [facility] Work Phone: Start: 06-27-2024 End: 06-27-2024 Departed Referred Renard Burgos -[facility] Start: 06-27-2024 Registered Referred [facility] Start: 06-27-2024 End: 06-27-2024 ambulatory Renard GARLAND Facility:[facility] Start: 06-24-2024 End: 06-24-2024 Subsequent hospital visit by physician Rashaad Pink NP Work Phone: [facility] Imaging Comment on above: Chronic cough Start: 06-24-2024 End: 06-24-2024 ambulatory RASHAAD SMITH [facility] Start: 06-24-2024 End: 06-24-2024 Departed Referred Renard Burgos [facility] Start: 06-24-2024 Registered Referred Renard Burgos - [employer] Start: 06-24-2024 End: 06-24-2024 ambulatory Renard GARLAND Facility:[facility] Start: 06-17-2024 End: 06-17-2024 ambulatory Renard GARLAND [facility] Work Phone: Start: 06-17-2024 End: 06-17-2024 Departed Referred Renard Burgos [facility] Start: 06-17-2024 Registered Referred Renard Burgos - [employer] Start: 06-17-2024 End: 06-17-2024 ambulatory Renard GARLAND Facility:[facility] Start: 06-12-2024 End: 09-11-2024 Transcribe Orders Rashaad Simth CABLE TENDER - REHAB TECHNICIAN Work Phone: [facility] Central Scheduling Comment on above: Chronic cough (Prima ry Dx) Start: 06-10-2024 End: 06-10-2024 ambulatory Renard GARLAND [facility] Work Phone: Start: 06-10-2024 End: 06-10-2024 [facility]ed [facility] Start: 06-10-2024 Registered Referred Renard Burgos - [employer] Start: 06-10-2024 End: 06-10-2024 ambulatory Renard GARLAND Facility:[facility] Start: 06-07-2024 End: 06-07-2024 ambulatory Renard GARLAND [facility] Work Phone: Start: 06-07-2024 End: 06-07-2024 Departed Referred Renard BRUNO Start: 06-07-2024 Registered Referred Renard Burgos - [employer] Start: 06-07-2024 End: 06-07-2024 ambulatory Renard GARLAND Facility:[facility] Start: 06-03-2024 End: 06-03-2024 ambulatory Renard GARLAND [facility] Work Phone: Start: 06-03-2024 End: 06-03-2024 Departed Referred Renard Burgos -[employer] Start: 06-03-2024 End: 06-03-2024 ambulatory Renard GARLAND Facility:[facility] Start: 05-27-2024 End: 05-27-2024 Departed Referred Renard Burgos -[facility] [employer] Start: 05-27-2024 End: 05-27-2024 ambulatory Renard GARLAND Facility:[facility] Start: 05-20-2024 End: 05-20-2024 Departed Referred Renard Burgos -[employer] Start: 05-20-2024 End: 05-20-2024 ambulatory Renard GARLAND Facility:[facility] Start: 05-13-2024 End: 05-13-2024 Departed Referred Renard Burgos -[employer] Start: 05-13-2024 End: 05-13-2024 ambulatory Renard GARLAND Facility:[facility] Start: 05-06-2024 End: 05-06-2024 Departed Referred Renard Burgos -[employer] Start: 05-06-2024 End: 05-06-2024 ambulatory Renard GARLAND Facility:[facility] Start: 05-03-2024 End: 05-03-2024 Telephone encounter Renard Burgos Work Phone: [facility] Clinical Communication Comment on above: Other Start: 04-29-2024 End: 04-29-2024 Departed Referred Renard Burgos -[employer] Start: 04-29-2024 End: 04-29-2024 ambulatory Renard GARLAND Facility:[facility] Start: 04-22-2024 End: 04-22-2024 Departed Referred Renard Burgos -[employer] Start: 04-22-2024 End: 04-22-2024 ambulatory Renard GARLAND Facility:[facility] Start: 04-15-2024 End: 04-15-2024 Departed Referred Renard Burgos -[facility] [employer] Start: 04-15-2024 End: 04-15-2024 ambulatory Renard GARLAND Facility:[facility] Start: 04-08-2024 ambulatory Renard GARLAND Faci lity:[facility] Start: 04-08-2024 Registered Referred Renard Burgos - [employer] Start: 04-01-2024 ambulatory Renard Hensleysahola OLS Faci lity:[facility] Start: 04-01-2024 Registered Referred Renard Shelliediego - [employer] Start: 03-25-2024 End: 03-25-2024 Departed Referred Renard Shellieros -[facility] [employer] Start: 03-25-2024 End: 03-25-2024 ambulatory Renard Hensleysaros OLS Facility:[facility] Start: 03-18-2024 End: 03-18-2024 Departed Referred Renard Shelliediego [facility] [employer] Start: 03-18-2024 End: 03-18-2024 ambulatory Renard Hensleysaros OLS Facility:[facility] Start: 03-11-2024 End: 03-11-2024 Departed Referred Renard Shelliediego [facility] [employer] Start: 03-11-2024 End: 03-11-2024 ambulatory Renard Hensleysaros OLS Facility:[facility] Start: 03-04-2024 End: 03-04-2024 ambulatory Renard Hensleysahola OLS Facility:[facility] Start: 02-26-2024 End: 02-26-2024 ambulatory Renard Hensleysahola OLS Facility:[facility] Start: 02-23-2024 End: 02-23-2024 ambulatory Renard Hensleysahola OLS Facility:[facility] Start: 02-19-2024 End: 02-19-2024 ambulatory Renard Hensleysaros OLS Facility:[facility] Start: 02-12-2024 End: 02-12-2024 ambulatory Renard Hensleysaros OLS Facility:[facility] Start: 02-05-2024 End: 02-05-2024 ambulatory Renard Katsaros OLS Facility:[facility] Start: 01-29-2024 End: 01-29-2024 ambulatory Renard Katsaros OLS Facility:[facility] Start: 01-22-2024 End: 01-22-2024 ambulatory Renard Katsaros OLS Facility:[facility] Start: 01-15-2024 ambulatory Renard Katsaros OLS Faci lity:[facility] Start: 01-08-2024 End: 01-08-2024 ambulatory Renard Hensleysaros OLS Facility:[facility] Start: 01-02-2024 ambulatory Renard Shelliehola GILL Faci lity:[facility] Start: 12-25-2023 ambulatory Renard Shelliehola GILL Faci lity:[facility] Start: 12-18-2023 End: 12-18-2023 ambulatory Renard Shelliesaros OLS Facility:[facility] Start: 12-11-2023 End: 12-11-2023 ambulatory Renard Shelliesaros OLS Facility:[facility] Start: 12-04-2023 End: 12-04-2023 ambulatory Renard Shellieros OLS Facility:[facility] Start: 11-27-2023 End: 11-27-2023 ambulatory Renard Shelliesaros OLS Facility:[facility] Start: 11-22-2023 End: 11-22-2023 ambulatory RENARD SHELLIEDIEGO [facility] Start: 11-22-2023 End: 11-22-2023 Subsequent hospital visit by physician Renard Burgos Work Phone: [facility] X-ray Imaging Comment on above: Dysphagia, oropharyn geal phase; Feeding difficulties Start: 11-20-2023 End: 11-20-2023 ambulatory Renard Shelliediego GARLAND Facility:[facility] Start: 11-13-2023 End: 11-13-2023 ambulatory Renard Shellieros OLS Facility:[facility] Start: 11-06-2023 End: 11-06-2023 ambulatory Renard Shelliesaros OLS Facility:[facility] Start: 10-30-2023 End: 10-30-2023 ambulatory Renard Shelliediego GARLAND Facility:[facility] Start: 10-23-2023 End: 10-23-2023 ambulatory Renard Shelliediego OLS Facility:[facility] Start: 10-16-2023 End: 01-15-2024 Transcribe Orders Renard Burgos Work Phone: [facility] Central Scheduling Comment on above: Dysphagia, oropharyn geal phase (Primary Dx); Feeding difficulties Start: 10-16-2023 End: 10-16-2023 ambulatory Renard Hensleysaros GILL Facility:[facility] Start: 10-02-2023 End: 10-02-2023 Emergency department patient visit Fei Farooq MD Work Phone: [facility] ED Comment on above: Dyspnea, unspecified type (Primary Dx) Start: 08-07-2023 [facility] Start: 07-31-2023 End: 07-31-2023 ambulatory [facility] Work Phone: Start: 07-31-2023 End: 07-31-2023 [facility] Start: 07-31-2023 [facility] Start: 07-24-2023 End: 07-24-2023 ambulatory [facility] Work Phone: Start: 07-24-2023 End: 07-24-2023 [facility] Start: 07-17-2023 End: 07-17-2023 ambulatory [facility] Work Phone: Start: 07-17-2023 End: 07-17-2023 [facility] Start: 07-17-2023 [facility] Start: 07-10-2023 End: 07-10-2023 ambulatory [facility] Work Phone: Start: 07-10-2023 End: 07-10-2023 [facility] Start: 07-10-2023 [facility] Start: 07-03-2023 End: 07-03-2023 ambulatory [facility] Work Phone: Start: 07-03-2023 End: 07-03-2023 [facility] Start: 07-03-2023 [facility] Start: 06-26-2023 [facility] Start: 06-19-2023 End: 06-19-2023 ambulatory [facility] Work Phone: Start: 06-19-2023 End: 06-19-2023 [facility] Start: 06-19-2023 [facility] Start: 06-12-2023 End: 06-12-2023 ambulatory [facility] Work Phone: Start: 06-12-2023 End: 06-12-2023 [facility] Start: 06-12-2023 [facility] Start: 06-05-2023 End: 06-05-2023 ambulatory [facility] Work Phone: Start: 06-05-2023 End: 06-05-2023 [facility] Start: 06-05-2023 [facility] Start: 05-29-2023 End: 05-29-2023 [facility] Start: 05-29-2023 [facility] Start: 05-22-2023 End: 05-22-2023 ambulatory [facility] Work Phone: Start: 05-22-2023 End: 05-22-2023 [facility] Start: 05-22-2023 [facility] Start: 05-15-2023 End: 05-15-2023 [facility] Start: 05-15-2023 [facility] Start: 05-08-2023 End: 05-08-2023 ambulatory [facility] Work Phone: Start: 05-08-2023 End: 05-08-2023 [facility] Start: 04-17-2023 End: 04-17-2023 ambulatory [facility] Work Phone: Start: 04-17-2023 End: 04-17-2023 [facility] Start: 04-17-2023 Registered [facility] [employer] Start: 04-14-2023 End: 04-14-2023 ambulatory [facility] Work Phone: Start: 04-14-2023 End: 04-14-2023 [facility] Start: 04-14-2023 Registered [facility]erred [facility] Start: 04-10-2023 End: 04-10-2023 [facility] Start: 04-10-2023 [facility] Start: 04-03-2023 End: 04-03-2023 ambulatory [facility] Work Phone: Start: 04-03-2023 End: 04-03-2023 [facility] Start: 04-03-2023 Registered [facility] [employer] Start: 03-27-2023 End: 03-27-2023 ambulatory [facility] Work Phone: Start: 03-27-2023 End: 03-27-2023 [facility] Start: 03-27-2023 Registered Referred [facility] Start: 03-20-2023 End: 03-20-2023 ambulatory [facility] Work Phone: Start: 03-20-2023 End: 03-20-2023 [facility] Start: 03-20-2023 [facility] Start: 03-16-2023 End: 03-16-2023 ambulatory [facility] Work Phone: Start: 03-16-2023 End: 03-16-2023 [facility] Start: 03-16-2023 Registered [facility] [facility] Start: 03-13-2023 End: 03-13-2023 ambulatory [facility] Work Phone: Start: 03-13-2023 End: 03-13-2023 [facility] Start: 03-06-2023 End: 03-06-2023 ambulatory [facility] Work Phone: Start: 03-06-2023 End: 03-06-2023 [facility] Start: 03-06-2023 [facility] Start: 02-27-2023 End: 02-27-2023 ambulatory [facility] Work Phone: Start: 02-27-2023 End: 02-27-2023 [facility] Start: 02-20-2023 End: 02-20-2023 ambulatory [facility] Work Phone: Start: 02-20-2023 End: 02-20-2023 [facility] Start: 02-20-2023 [facility] Start: 02-13-2023 End: 02-13-2023 ambulatory [facility] Work Phone: Start: 02-13-2023 End: 02-13-2023 [facility] Start: 02-13-2023 [facility] Start: 02-06-2023 End: 02-06-2023 ambulatory [facility] Work Phone: Start: 02-06-2023 End: 02-06-2023 Departed Referred [facility] [facility] Start: 02-06-2023 Registered Referred [facility] [employer] Start: 01-30-2023 End: 01-30-2023 ambulatory [facility] Work Phone: Start: 01-30-2023 End: 01-30-2023 Departed Referred [facility] [employer] Start: 01-30-2023 Registered Referred [facility] [facility] Start: 01-23-2023 End: 01-23-2023 Departed Referred [facility] [employer] Start: 01-23-2023 [facility] Start: 01-16-2023 End: 01-16-2023 ambulatory [facility] Work Phone: Start: 01-16-2023 End: 01-16-2023 [facility] Start: 01-16-2023 Registered Referred [facility] [employer] Start: 01-09-2023 End: 01-09-2023 Departed [facility]erred [facility] [facility] [facility] Start: 01-09-2023 Registered Referred [facility] [facility] Start: 01-03-2023 End: 01-03-2023 ambulatory [facility] Work Phone: Start: 01-03-2023 End: 01-03-2023 Departed [facility]erred [facility] [employer] Start: 01-03-2023 Registered Referred [facility] [employer] [facility] Start: 12-26-2022 End: 12-26-2022 ambulatory [facility] Work Phone: Start: 12-26-2022 End: 12-26-2022 [facility] Start: 12-26-2022 [facility] Start: 12-19-2022 End: 12-19-2022 ambulatory [facility] Work Phone: Start: 12-19-2022 End: 12-19-2022 [facility] Start: 12-19-2022 Registered Referred [facility] [employer] Start: 12-12-2022 End: 12-12-2022 [facility] Start: 12-12-2022 Registered [facility] Start: 12-05-2022 End: 12-05-2022 ambulatory [facility] Work Phone: Start: 12-05-2022 End: 12-05-2022 [facility] Start: 12-05-2022 [facility] Start: 11-28-2022 End: 11-28-2022 ambulatory [facility] Work Phone: Start: 11-28-2022 End: 11-28-2022 [facility] Start: 11-28-2022 Registered [facility] [employer] Start: 11-21-2022 End: 11-21-2022 ambulatory [facility] Work Phone: Start: 11-21-2022 End: 11-21-2022 [facility] Start: 11-21-2022 Registered Referred [facility] [employer] Start: 11-14-2022 End: 11-14-2022 ambulatory [facility] Work Phone: Start: 11-14-2022 End: 11-14-2022 [facility] Start: 11-14-2022 [facility] Start: 11-07-2022 [facility] Start: 10-31-2022 End: 10-31-2022 ambulatory [facility] Work Phone: Start: 10-31-2022 End: 10-31-2022 Departed [facility] [facility] [facility] Start: 10-31-2022 Registered Referred [facility] [employer] Start: 10-24-2022 End: 10-24-2022 ambulatory [facility] Work Phone: Start: 10-24-2022 End: 10-24-2022 Departed Referred [facility] [employer] Start: 10-24-2022 Registered Referred [facility] Start: 10-17-2022 End: 10-17-2022 Departed Referred [facility] Start: 10-17-2022 Registered [facility] [facility] Start: 10-10-2022 End: 10-10-2022 ambulatory [facility] Work Phone: Start: 10-10-2022 End: 10-10-2022 Departed [facility] [facility] Start: 10-10-2022 Registered Referred [facility] [employer] Start: 10-03-2022 End: 10-03-2022 ambulatory [facility] Work Phone: Start: 10-03-2022 End: 10-03-2022 Departed [facility] [facility] Start: 09-19-2022 End: 09-19-2022 Departed [facility] [facility] Start: 09-19-2022 Registered [facility] [employer] Start: 09-12-2022 End: 09-12-2022 ambulatory [facility] Work Phone: Start: 09-12-2022 End: 09-12-2022 Departed [facility] [employer] Start: 09-05-2022 End: 09-05-2022 Departed Referred [facility] [facility] Start: 09-05-2022 Registered Referred [facility] [employer] Start: 08-29-2022 End: 08-29-2022 Departed [facility] [employer] [facility] Start: 08-29-2022 Registered Referred [facility] [employer] Start: 08-22-2022 End: 08-22-2022 ambulatory [facility] Work Phone: Start: 08-22-2022 End: 08-22-2022 Departed Referred [facility] Start: 08-22-2022 Registered Ref[facility] [employer] Start: 08-15-2022 End: 08-15-2022 ambulatory [facility] Work Phone: Start: 08-15-2022 End: 08-15-2022 [facility] Start: 08-15-2022 Registered Referred [facility] Start: 08-08-2022 End: 08-08-2022 Departed Referred [facility] [employer] Start: 08-08-2022 Registered Referred [facility] [employer] Start: 08-01-2022 End: 08-01-2022 ambulatory [facility] Work Phone: Start: 08-01-2022 End: 08-01-2022 Departed [facility] [employer] Start: 08-01-2022 Registered Referred [facility] [employer] Start: 07-25-2022 End: 07-25-2022 ambulatory [facility] Work Phone: Start: 07-25-2022 End: 07-25-2022 [facility] Start: 07-25-2022 [facility] Start: 07-19-2022 End: 07-19-2022 Departed Referred [facility] Start: 07-19-2022 [facility] Start: 07-18-2022 End: 07-18-2022 ambulatory [facility] Work Phone: Start: 07-18-2022 End: 07-18-2022 [facility] Start: 07-18-2022 [facility] Start: 07-11-2022 End: 07-11-2022 ambulatory [facility] Work Phone: Start: 07-11-2022 End: 07-11-2022 [facility] Start: 07-11-2022 [facility] Start: 07-04-2022 End: 07-04-2022 [facility] Start: 07-04-2022 [facility] Start: 06-27-2022 End: 06-27-2022 ambulatory [facility] Work Phone: Start: 06-27-2022 End: 06-27-2022 [facility] Start: 06-27-2022 [facility] Start: 06-20-2022 End: 06-20-2022 ambulatory [facility] Work Phone: Start: 06-20-2022 End: 06-20-2022 [facility] Start: 06-20-2022 [facility] Start: 06-13-2022 End: 06-13-2022 ambulatory [facility] Work Phone: Start: 06-13-2022 End: 06-13-2022 [facility] Start: 06-13-2022 [facility] [facility] Start: 06-06-2022 End: 06-06-2022 [facility] Start: 06-06-2022 [facility] [employer] [facility] Start: 05-30-2022 End: 05-30-2022 ambulatory [facility] Work Phone: Start: 05-30-2022 End: 05-30-2022 [facility] Start: 05-23-2022 End: 05-23-2022 ambulatory [facility] Work Phone: Start: 05-23-2022 End: 05-23-2022 Departed Referred [facility] Start: 05-23-2022 Registered Referred [facility] [employer] Start: 05-20-2022 End: 05-20-2022 Emergency department patient visit Abelardo Rios Work Phone: [facility] ED Comment on above: Dislodged gastrostom y tube (Primary Dx) Start: 05-16-2022 End: 05-16-2022 Departed Referred [facility] Start: 05-16-2022 Registered Referred [facility] [employer] Start: 05-09-2022 End: 05-09-2022 ambulatory [facility] Work Phone: Start: 05-09-2022 End: 05-09-2022 [facility] Start: 05-09-2022 [facility] Start: 05-03-2022 End: 05-03-2022 ambulatory [facility] Work Phone: Start: 05-03-2022 End: 05-03-2022 Departed Referred [facility] Start: 05-03-2022 Registered Referred [facility] [employer] Start: 04-26-2022 End: 04-26-2022 Departed [facility] [facility] Start: 04-26-2022 Registered Referred [facility] [employer] Start: 04-18-2022 End: 04-18-2022 ambulatory [facility] Work Phone: Start: 04-18-2022 End: 04-18-2022 Departed [facility] Start: 04-18-2022 Registered [facility] [employer] Start: 04-14-2022 End: 04-14-2022 ambulatory [facility] Work Phone: Start: 04-14-2022 End: 04-14-2022 [facility] Start: 04-14-2022 Registered [facility] [employer] Start: 04-11-2022 End: 04-11-2022 ambulatory [facility] Work Phone: Start: 04-11-2022 End: 04-11-2022 [facility] Start: 04-11-2022 [facility]istered [facility] [facility] Start: 04-04-2022 End: 04-04-2022 ambulatory [facility] Work Phone: Start: 04-04-2022 End: 04-04-2022 Departed Referred [facility] [employer] Start: 04-04-2022 Registered Referred [facility] [employer] Start: 03-28-2022 End: 03-28-2022 ambulatory [facility] Work Phone: Start: 03-28-2022 End: 03-28-2022 [facility] Start: 03-28-2022 Registered [facility] Start: 03-21-2022 End: 03-21-2022 ambulatory [facility] Work Phone: Start: 03-21-2022 End: 03-21-2022 [facility] Start: 03-21-2022 [facility]istered [facility] Start: 03-14-2022 End: 03-14-2022 [facility] Start: 03-14-2022 [facility] Start: 2022 End: 2022 ambulatory [facility] Work Phone: Start: 2022 End: 2022 [facility] Start: 2022 [facility] Start: 02-28-2022 End: 02-28-2022 [facility] Start: 02-28-2022 [facility] Start: 02-21-2022 End: 02-21-2022 ambulatory [facility] Work Phone: Start: 02-21-2022 End: 02-21-2022 [facility] Start: 02-21-2022 [facility] Start: 02-14-2022 End: 02-14-2022 ambulatory [facility] Work Phone: Start: 02-14-2022 End: 02-14-2022 [facility] Start: 02-14-2022 [facility] Start: 02-07-2022 End: 02-07-2022 ambulatory [facility] Work Phone: Start: 02-07-2022 End: 02-07-2022 [facility] Start: 02-07-2022 [facility] Start: 01-31-2022 End: 01-31-2022 ambulatory [facility] Work Phone: Start: 01-31-2022 End: 01-31-2022 [facility] Start: 01-31-2022 [facility] Start: 01-24-2022 End: 01-24-2022 ambulatory [facility] Work Phone: Start: 01-24-2022 End: 01-24-2022 [facility] Start: 01-24-2022 [facility] Start: 01-17-2022 End: 01-17-2022 [facility] Start: 01-17-2022 [facility] Start: 01-10-2022 End: 01-10-2022 ambulatory [facility] Work Phone: Start: 01-10-2022 End: 01-10-2022 [facility] Start: 01-10-2022 [facility] Start: 01-04-2022 End: 01-04-2022 ambulatory [facility] Work Phone: Start: 01-04-2022 End: 01-04-2022 [facility] Start: 01-04-2022 [facility] Start: 12-27-2021 End: 12-27-2021 ambulatory [facility] Work Phone: Start: 12-27-2021 End: 12-27-2021 [facility] Start: 12-27-2021 Registered [facility] [employer] [facility] Start: 12-20-2021 End: 12-20-2021 ambulatory [facility] Work Phone: Start: 12-20-2021 End: 12-20-2021 Departed [facility] [employer] [facility] Start: 12-20-2021 [facility] [facility] Start: 12-13-2021 End: 12-13-2021 Departed [facility] [facility] Start: 12-13-2021 [facility] Start: 12-06-2021 End: 12-06-2021 ambulatory [facility] Work Phone: Start: 12-06-2021 End: 12-06-2021 [facility] Start: 12-06-2021 [facility] Start: 11-29-2021 End: 11-29-2021 ambulatory [facility] Work Phone: Start: 11-29-2021 End: 11-29-2021 Departed [facility] [employer] [facility] Start: 11-29-2021 [facility] Start: 11-22-2021 End: 11-22-2021 Departed [facility] Start: 11-22-2021 [facility] [facility] Start: 11-15-2021 End: 11-15-2021 Departed [facility] [facility] Start: 11-15-2021 Registered [facility] Start: 11-08-2021 End: 11-08-2021 Departed [facility] Start: 10-25-2021 [facility] Start: 10-18-2021 Registered [facility] [employer] [facility] Start: 10-11-2021 Registered [facility] [facility] Start: 10-04-2021 Registered [facility] Start: 09-28-2021 End: 09-28-2021 Departed Referred [facility] [employer] [facility] Start: 09-28-2021 Registered [facility] [facility] Start: 09-20-2021 End: 09-20-2021 [facility] Start: 09-20-2021 Registered [facility] Start: 09-13-2021 End: 09-13-2021 [facility] Start: 09-13-2021 Registered [facility] [facility] Start: 09-06-2021 End: 09-06-2021 Departed [facility] [facility] Start: 09-06-2021 Registered [facility] Start: 08-30-2021 End: 08-30-2021 Departed Referred [facility] [facility] Start: 08-30-2021 Registered [facility] Start: 08-23-2021 End: 08-23-2021 Departed [facility] Start: 08-23-2021 Registered [facility] [employer] [facility] Start: 08-18-2021 End: 08-18-2021 Departed [facility] Start: 08-18-2021 Registered [facility] [facility] Start: 08-16-2021 End: 08-16-2021 [facility]ed [facility] Start: 08-16-2021 Registered [facility] Start: 08-09-2021 End: 08-09-2021 Departed Referred [facility] [employer] [facility] Start: 08-02-2021 End: 08-02-2021 Departed Referred [facility] Start: 08-02-2021 [facility] Start: 07-26-2021 End: 07-26-2021 [facility] Start: 07-26-2021 Registered [facility] Start: 07-19-2021 End: 07-19-2021 [facility] Start: 07-19-2021 Registered [facility] Start: 07-12-2021 End: 07-12-2021 [facility] Start: 07-05-2021 End: 07-05-2021 [facility] Start: 07-05-2021 Registered [facility] Start: 06-28-2021 End: 06-28-2021 Departed Referred [facility] Start: 06-28-2021 Registered [facility] Start: 06-21-2021 End: 06-21-2021 [facility]ed [facility] Start: 06-21-2021 Registered [facility] [employer] Start: 06-14-2021 Registered [facility] [employer] [facility] Start: 06-07-2021 End: 06-07-2021 Departed [facility] Start: 06-07-2021 Registered [facility] Start: 05-31-2021 End: 05-31-2021 [facility]ed [facility] Start: 05-31-2021 Registered [facility] Start: 05-24-2021 End: 05-24-2021 Departed Referred [facility] [employer] Start: 05-17-2021 Registered Referred [facility] Start: 05-15-2021 End: 05-15-2021 Emergency department patient visit Timothy Burton DO Work Phone: [facility] Comment on above: PEG tube malfunction (HCC) (Primary Dx) Start: 05-14-2021 [facility]istered [facility] Start: 05-10-2021 Registered Referred [facility] Start: 05-03-2021 Registered Referred [facility] Start: 04-26-2021 Registered Referred [facility] Start: 04-19-2021 Registered Referred [facility] Start: 04-12-2021 Registered Referred [facility] Start: 04-07-2021 Registered Referred [facility] Start: 03-19-2021 End: 03-24-2021 Evaluation and management of inpatient Brady Desai DO Work Phone: [facility] Comment on above: Respiratory syncytia l virus (RSV) (Primary Dx); Hypoxia Start: 03-18-2021 End: 03-18-2021 Emergency department [facility] Comment on above: Respiratory syncytia l virus (RSV) (Primary Dx); Hypoxia Start: 10-30-2020 End: 10-30-2020 Emergency department patient visit [facility]ons [facility] Comment on above: Feeding tube dysfunc tion, initial encounter (Primary Dx) Start: 09-22-2020 End: 09-22-2020 Emergency department patient visit Elizabeth Moura MD Work Phone: [facility] Comment on above: PEG tube malfunction (HCC) (Primary Dx) Start: 06-26-2020 End: 06-26-2020 Emergency department patient visit Abelardo Rios Work Phone: [facility] Comment on above: PEG tube malfunction (HCC) (Primary Dx) Start: 05-22-2019 End: 05-22-2019 Patient encounter procedure Jarvis Kendall MD Work Phone: [facility] Work Phone: Start: 05-22-2019 End: 05-22-2019 Pt evaluation Jarvis Kendall MD Work Phone: [facility] Work Phone: Start: 05-16-2019 End: 05-16-2019 Emergency department patient visit Elizabeth Moura MD Work Phone: [facility] Comment on above: Contusion of right h ip, initial encounter (Primary Dx) Start: 08-15-2018 Evaluation and management of inpatient UNKNOWN PROVIDER [facility] Start: 07-08-2018 Evaluation and management of inpatient JORDAN GEUBE [facility] Start: 01-02-2003 End: 01-02-2003 Patient encounter procedure Beni Vera Work Phone: [facility] Start: 01-02-2003 Results Only Beni Vera Work Phone: [facility] Procedures Date Procedure Procedure Detail Performing [...] EMDF, PT, BMP3M, PHOS3, MG3, CK3 #### [facility] [address] [place], [place] #### [id number] #### [facility] [address] [place] [address] Start: 07-27-2018 Microscopic examinat ion of blood, culture Comment on above: Order Comment: Speci men Source Comment:Blood Performed By: #### H EMDF, PT, BMP3M, PHOS3, MG3, CK3 #### [facility] [address] [place], [place] #### [id number] #### [facility] [address] [place] [address] Start: 07-19-2018 Microscopic examinat ion of blood, culture Comment on above: Order Comment: Speci men Source Comment:Blood Performed By: #### H EMDF, PT, BMP3M, PHOS3, MG3, CK3 #### [facility] [address] [place] [address] #### [id number] #### [facility] [address] [place] [address] Start: 01-02-2003 CONVERTED SURGICAL PATHOLOGY Beni Vera [...] for Adults (1 - 1-dose 75+ series) [facility] Start: 01-10-2027 DTaP/Tdap/Td vaccine (2 - Td or Tdap) DTaP/Tdap/Td vaccine (2 - Td or Tdap) [facility] Start: 01-10-2027 DTaP/Tdap/Td vaccine (2 - Td) DTaP/Tdap/Td vaccine (2 - Td) [facility] Work Phone: Start: 01-10-2027 DTaP/Tdap/Td Vaccine s (2 - Td or Tdap) DTaP/Tdap/Td Vaccines (2 - Td or Tdap) [facility] Start: 12-30-2024 Influenza vaccination Influenz a Vaccine (Season Ended) [facility] Start: 03-22-2024 Diabetes mellitus screening Diabetes Screening [facility] Start: 12-31-2023 COVID-19 Vaccine ( season) COVID-19 Vaccine ( season) [facility] Start: 12-31-2023 COVID-19 Vaccine ( season) COVID-19 Vaccine ( season) [facility] Start: 12-31-2023 COVID-19 Vaccine ( season) COVID-19 Vaccine ( season) [facility] Start: 12-31-2023 Influenza vaccination [facility] Start: 01-30-2023 Bacteria identified in Urine by Culture Urine Culture [facility] Start: 01-30-2023 [facility] Start: 12-30-2022 COVID-19 Vaccine ( season) COVID-19 Vaccine ( season) [facility] Start: 2022 Pneumococcal 0-64 ye ars Vaccine (2 of 2 - PPSV23) Pneumococcal 0-64 years Vaccine (2 of 2 - PPSV23) [facility] Start: 2022 Pneumococcal 0-64 ye ars Vaccine (2 of 2) Pneumococcal 0-64 years Vaccine (2 of 2) [facility] Work Phone: Start: 2022 Pneumococcal Vaccine : 65+ Years (2 of 2 - PCV) Pneumococcal Vaccine: 65+ Years (2 of 2 - PCV) [facility] Start: 12-30-2021 Influenza vaccination Influenza Vacc ine (#1) [facility] Start: 12-30-2020 Influenza vaccination [facility] Start: 12-31-2019 Influenza vaccination Flu vaccine (# 1) [facility] Work Phone: Start: 08-18-2019 A1C test (Diabetic o r Prediabetic) A1C test (Diabetic or Prediabetic) [facility] Work Phone: Start: 08-18-2019 HbA1c (Bld) [Mass fraction] A1C test (Diabetic or Prediabetic) [facility] Work Phone: Start: 08-18-2019 Hemoglobin A1c measurement A1C test (Diabetic or Prediabetic) [facility] Start: 05-22-2019 End: 05-22-2019 Appointment Appointment [facility] Work Phone: Start: 02-07-2019 Lipid panel Lipid screen [facility] Start: 02-07-2019 Lipid screen Lipid screen [facility] Work Phone: Start: 12-30-2018 Influenza vaccination Flu vaccine (# 1) [facility] Work Phone: Start: 01-10-2018 Pneumococcal Vaccine : 50+ Years (2 of 2 - PCV) Pneumococcal Vaccine: 50+ Years (2 of 2 - PCV) [facility] Start: 01-10-2018 Pneumococcal Vaccine : 65+ Years (2 - PCV) Pneumococcal Vaccine: 65+ Years (2 - PCV) [facility] Start: 2017 RSV Immunization age d 60 or older (1 - 1-dose 60+ series) RSV Immunization aged 60 or older (1 - 1-dose 60+ series) [facility] Start: 2007 Colon cancer screen colonoscopy Colon cancer screen colonoscopy [facility] Work Phone: Start: 2007 Screening for malign ant neoplasm of colon Colon cancer screen colonoscopy [facility] Work Phone: Start: 2007 Shingles Vaccine (1 of 2) Shingles Vaccine (1 of 2) [facility] Start: 2007 Zoster Vaccines (1 o f 2) Zoster Vaccines (1 of 2) [facility] Start: 2002 Screening for malign ant neoplasm of colon Colon cancer screen colonoscopy [facility] Start: 1976 Hepatitis A Vaccines (1 of 2 - Risk 2-dose series) Hepatitis A Vaccines (1 of 2 - Risk 2-dose series) [facility] Start: 1975 Hepatitis C screening Hepatitis C Sc reening [facility] Start: 1969 COVID-19 Vaccine (1) COVID-19 Vaccin e (1) [facility] Start: 1969 Depression Monitoring Depression Mon [facility] Start: 1969 Depression Screen Depression Screen [facility] Start: 1962 COVID-19 Vaccine (1) COVID-19 Vaccin e (1) [facility] Start: 1957 COVID-19 Vaccine (#1) COVID-19 Vacci ne (#1) [facility] Start: 1957 Annual wellness visit Medicare Initial Physical (IPPE) [facility] Start: 1957 Hepatitis B Vaccines (1 of 3 - 3-dose series) Hepatitis B Vaccines (1 of 3 - 3-dose series) [facility] Start: 1957 Lipid panel Lipid Panel [facility] Start: 1957 Screening for malign ant neoplasm of colon [facility] Basic metabolic 2000 panel - Serum or Plasma Basic Metabolic Panel Lab Routine Daily until discontinued starting 03/23/2021, [address] [facility] Work Phone: Comment on above: Daily until disconti nued starting 03/23/2021, 2 completed CBC W Auto Different ial panel - Blood CBC Auto Differential Lab Routine Daily until discontinued starting 03/23/2021, 2 completed [employer] Work Phone: Comment on above: Daily until disconti nued starting 03/23/2021, 2 completed End: 06-24-2024 CT Chest WO contrast [employer] Work Phone: Comment on above: Once for 1 Occurrenc es starting 06/24/2024 until 06/24/2024 Culture, Blood 2 Culture, Blood 2 Microbiology STAT 03/19/2021 6:26 PM EST [employer] Work Phone: End: 03-20-2021 Culture, Respiratory Culture, Respiratory Microbiology Routine One Time for 1 Occurrences starting 03/20/2021 until 03/20/2021 [employer] Work Phone: Comment on above: One Time for 1 Occur rences starting 03/20/2021 until 03/20/2021 EKG 12 Lead EKG 12 Lead ECG STAT 03/18/2021 3:20 PM EST [employer] Work Phone: Feeding Tube Feeding Tube Pro cedures Routine 10/30/2020 2:22 PM EDT [employer] Work Phone: End: 09-22-2020 FL WATER SOLUBLE ENEMA W OR WO KUB FL WATER SOLUBLE ENEMA W OR WO KUB Imaging STAT Once for 1 Occurrences starting 09/22/2020 until 09/22/2020 [employer] Phone: Comment on above: Once for 1 Occurrenc es starting 09/22/2020 until 09/22/2020 End: 03-23-2021 Glucose [Mass/volume] in Serum or Plasma POCT GLUCOSE Point of Care Testing Routine Now Then Every 6hr for 7 Occurrences starting 03/21/2021 until 03/23/2021 [employer] Work Phone: Comment on above: Now Then [...] for 1 Occurrences starting 03/20/2021 until 03/20/2021 [employer] Work Phone: Comment on above: One Time for 1 Occur rences starting 03/20/2021 until 03/20/2021 Microscopic examinat ion of blood, culture Culture, Blood Microbiology STAT 03/19/2021 6:26 PM EST [employer] Work Phone: End: 03-20-2021 Microscopic observation [Identifier] in Unspecified specimen by Gram stain Gram Stain Microbiology Routine Once for 1 Occurrences starting 03/20/2021 until 03/20/2021 [employer] Work Phone: Comment on above: Once for 1 Occurrenc es starting 03/20/2021 until 03/20/2021 Oxygen therapy [[facility] Data Set] Initiate Oxygen Therapy Protocol Respiratory Care Routine Daily until discontinued starting 03/20/2021 [employer] Work Phone: Comment on above: Daily until disconti nued starting 03/20/2021 Patient Education \cps-sql1\CPS_ PtEducati on\CDC_FALL_PREVENTION. pdf, \cps-sql1\CPS_PtEducati on\quitting_smoking_[id number].pdf [facility] Work Phone: RT Communication Order RT Commun ication Order Respiratory Care STAT Daily until discontinued starting 03/18/2021 [employer] Work Phone: Comment on above: Daily until disconti nued starting 03/18/2021 RT Communication Order RT Commun ication Order Respiratory Care Routine Daily until discontinued starting 03/20/2021 [employer] Work Phone: Comment on above: Daily until disconti nued starting 03/20/2021 End: 03-20-2021 STREP PNEUMONIAE ANTIGEN STREP PNEUMONIAE ANTIGEN Microbiology Routine One Time for 1 Occurrences starting 03/20/2021 until 03/20/2021 [facility] Work Phone: Comment on above: One Time for 1 Occur rences starting 03/20/2021 until 03/20/2021 End: 03-18-2021 Urinalysis Urinalysis Lab STAT One Time for 1 Occurrences starting 03/18/2021 until 03/18/[address] [facility] Work Phone: Comment on above: One Time for 1 Occur rences starting 03/18/2021 until 03/18/2021 End: 03-18-2021 Urine Drug Screen Urine Drug Screen Lab STAT One Time for 1 Occurrences starting 03/18/2021 until 03/18/[address] [facility] Work Phone: Comment on above: One Time for 1 Occur rences starting 03/18/2021 until 03/18/2021 End: 09-22-2020 XR ABDOMEN (KUB) (SINGLE AP VIEW) XR ABDOMEN (KUB) (SINGLE AP VIEW) Imaging Routine Once for 1 Occurrences starting 09/22/2020 until 09/22/[address] 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 01-10-2017 tetanus toxoid, redu delia diphtheria toxoid, and acellular pertussis vaccine, adsorbed Elizabeth Moura MD Work Phone: [facility] Work Phone: Payers Date Payer Category Payer Self-pay [id number] 2019 Medicaid [id number] 2019 Medicaid [id number] 2018 Private Health Insurance [id number] 2018 Private Health Insurance [facility] [place] 2018-Present [phone] [address] [place] [address] xxxxxxxxx [id number] 1957 Unknown [id number] 1957 Unknown [id number] Private Health Insurance Unknown [id number] Unknown [id number] Unknown [id number] 2.16840.1.909197.3.579.2. 462 Unknown [id number] 2.16840.1.613241.3.579.2. 462 Unknown [id number] 2.16840.1.426127.3.579.2. 462 Unknown [id number] 2.840.1.761131.3.579.2. 462 Unknown [id number] 2.16840.1.552208.3.579.2. 462 Unknown [id number] 2.16840.1.124570.3.579.2. 462 Unknown [id number] 2.16840.1.331532.3.579.2. 462 Unknown [id number] 2.16840.1.319026.3.579.2. 462 Unknown [id number] 2.16840.1.513537.3.579.2. 462 Unknown [id number] 2.16.840.1.097575.3.579.2. 462 Unknown [id number] 2.16.840.1.480623.3.579.2. 462 Unknown [id number] 2.16.840.1.406346.3.579.2. 462 Unknown [id number] 2.16.840.1.630204.3.579.2. 462 Unknown [id number] 2.16.840.1.064473.3.579.2. 462 Unknown [id number] 2.16.840.1.881640.3.579.2. 462 Unknown [id number] 2..840.1.507945.3.579.2. 462 Unknown [id number] 2.840.1.588840.3.579.2. 462 Unknown [id number] 2.840.1.988926.3.579.2. 462 Unknown [id number] 2.840.1.899898.3.579.2. 462 Unknown [id number] 2.16.840.1.577080.3.579.2. 462 Unknown [id number] 2.16.840.1.429656.3.579.2. 462 Unknown [id number] 2.840.1.698454.3.579.2. 462 Unknown [id number] 2.16840.1.025236.3.579.2. 462 Unknown [id number] 2.16.840.1.668398.3.579.2. 462 Unknown [id number] 2.16.840.1.762446.3.579.2. 462 Unknown [id number] 2.16.840.1.628610.3.579.2. 462 Unknown [id number] 2.16.840.1.350673.3.579.2. 462 Unknown [id number] 2.16840.1.186925.3.579.2. 462 Unknown [id number] 2.16840.1.466038.3.579.2. 462 Unknown [id number] 2.16840.1.439650.3.579.2. 462 Unknown [id number] 2.840.1.544073.3.579.2. 462 Unknown [id number] 2.840.1.707710.3.579.2. 462 Unknown [id number] 2.840.1.107215.3.579.2. 462 Unknown [id number] 2.840.1.297015.3.579.2. 462 Unknown [id number] 2.840.1.085773.3.579.2. 462 Unknown [id number] 2.840.1.918963.3.579.2. 462 Unknown [id number] 2.840.1.553173.3.579.2. 462 Unknown [id number] 2.840.1.444809.3.579.2. 462 Unknown [id number] .840.1.155558.3.579.2. 462 Unknown [id number] 2.840.1.987577.3.579.2. 462 Unknown [id number] 2.840.1.376391.3.579.2. 462 Unknown [id number] 2.840.1.963346.3.579.2. 462 Unknown [id number] .840.1.536236.3.579.2. 462 Unknown [id number] 2.840.1.504664.3.579.2. 462 Unknown [id number] 2.840.1.045516.3.579.2. 462 Unknown [id number] 2.840.1.744987.3.579.2. 462 Unknown [id number] 2.16.840.1.284701.3.579.2. 462 Unknown [id number] 2.16.840.1.513007.3.579.2. 462 Unknown [id number] 2.16.840.1.300318.3.579.2. 462 Unknown [id number] 2.16.840.1.316005.3.579.2. 462 Unknown [id number] 2.16.840.1.451340.3.579.2. 462 Unknown [id number] 2.16.840.1.442361.3.579.2. 462 Unknown [id number] 2.16.840.1.856502.3.579.2. 462 Unknown [id number] 2.16.840.1.958536.3.579.2. 462 Unknown [id number] 2.16.840.1.636869.3.579.2. 462 Unknown [id number] 2.16.840.1.061801.3.579.2. 462 Unknown [id number] 2.16.840.1.836382.3.579.2. 462 Social History Date Type Detail Facility Tobacco smoking status RIIS Unknown if ever smoked [facility] Work Phone: Start: 1955 Sex Assigned At Not on file [employer] Work Phone: Start: 11-05-2018 End: 06-26-2020 Tobacco smoking status NHIS Former smoker [employer] Work Phone: End: 02-06-2016 History of tobacco use Current smoker [employer] Phone: End: 02-06-2016 History of tobacco use Cigar Smoker [employer] Work Phone: Start: 02-05-2018 End: 06-26-2020 Tobacco use and exposure Never used [employer] Work Phone: Start: 06-26-2020 End: 05-20-2022 Alcohol intake Current drinker of alcohol (finding) [facility] Work Phone: Start: 07-08-2018 Alcohol Comment 2 times per wo rk, occasionally liquor [facility] Work Phone: Start: 05-10-2022 End: 05-20-2022 Exposure to SARS-CoV-2 (event) Not sure [facility] Work Phone: Start: 09-22-2020 End: 05-20-2022 Alcohol intake [facility] Start: 1955 Sex Assigned At Male [facility] End: 02-06-2016 History of tobacco use Cigarette Smoker [facility] Start: 05-20-2022 End: 10-02-2023 Tobacco use panel [facility] How often to you have a drink containing alcohol? Never [facility] How many standard drinks containing alcohol do you have on a typical day? Patient does not drink [facility] Start: 11-29-2021 End: 08-16-2024 Sex Male (finding) [facility] Tobacco smoking status NHIS Unknown if ever smoked [facility] Work Phone: NEGATED: Highlighted rowStart: 05-22-2019 End: 05-22-2019 Alcohol use Alcohol use [facility] Work Phone: NEGATED: Highlighted rowStart: 05-22-2019 End: 05-22-2019 Assertion Current some day smoker [facility] Work Phone: NEGATED: Highlighted rowStart: 05-22-2019 End: 05-22-2019 Details of drug misuse behavior Details of drug misuse behavior [facility] Work Phone: NEGATED: Highlighted rowStart: 05-22-2019 End: 05-22-2019 Tobacco use and exposure Tobacco use and exposure [facility] Work Phone: Clinical Notes 03-18-2021 to [...] to fax the information to the office. [phone] [facility] 05-03-2024 Miscellaneous Notes Gissel is calling to let Dr. Burgos know that the medication he prescribed he not certified, she is going to fax the information to the office. [phone] documented in this encounter [facility] 11-22-2023 History of Presen t illness Narrative Images from the original note were not included. Speech-Language Pathology SPEECH LANGUAGE PATHOLOGY [facility] Modified Barium Swallow Study [...] despite effort. 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) ([facility]) Alcohol abuse 07/08/2018 Anxiety C1 spinal cord injury ([facility]) ([facility]) Depression Fall 06/2018 Schizophrenia ([facility]) Past Surgical History: Past Surgical History: Procedure Laterality Date CERVICAL FUSION 07/09/2014 C2-6 cervical fusion GASTROSTOMY TUBE PLACEMENT 07/13/2018 TRACHEOSTOMY 07/13/2018 Admission Diagnosis: Patient Active Problem List Diagnosis Date Noted Respiratory syncytial virus (RSV) 03/22/2021 Hypoxia 03/19/2021 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[facility]) ([facility]) 08/16/2018 Chronic latent schizophrenia ([facility]) 08/15/2018 Prolonged Q-T interval on ECG 08/15/2018 Abdominal wall abscess 08/15/2018 Central cord syndrome ([facility]) ([facility]) 08/15/2018 Respiratory failure after trauma ([facility]) 08/15/2018 Pressure ulcer of sacral region, stage 2 ([facility]) 08/09/2018 Urinary retention 07/28/2018 Acute respiratory failure with hypoxia ([facility]) 07/26/2018 Mild bibasilar atelectasis 07/26/2018 Hospital-acquired pneumonia 07/26/2018 Bilateral pleural effusion 07/26/2018 Ileus ([facility]) ([facility]) 07/23/2018 TREVER (acute kidney injury) ([facility]) 07/23/2018 Hypokalemia 07/21/2018 Vertebral artery occlusion, bilateral 07/11/2018 Vitamin D insufficiency 07/10/2018 Alcohol abuse 07/08/2018 Closed wedge compression fracture of first thoracic vertebra ([facility]) 07/08/2018 Traumatic nondisp spondylolisthesis of C3 vertebra with closed fx, initial encounter ([facility]) 07/08/2018 Closed fracture dislocation of cervical spine ([facility]) 07/08/2018 Pain: Pt denies any current pain. Reason for current admission: Pt with h/o of PEG and trach from 2019. Pt is currently decannulated. 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 Noted very large connective [...] able to eat by mouth. 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 Individual Minutes Time In: 1150 Time Out: 1215 Minutes: 25 ZACHARY Sun documented in this encounter [facility] 10-02-2023 Emergency department Note [facility] at bedside at this time Mami Lantigua RN 10/02/23 1427 [facility] 10-02-2023 Emergency department Note [facility] at bedside at this time Mami Lantigua RN 10/02/23 1427 This RN gave report to Marnie at [facility] at this time Mami Lantigua RN 10/02/23 1358 This RN went to evaluate patient, was on 2L o2 and does not wear at baseline, plan is dc, this RN turned o2 off to trial patient, spo2 monitor on Mami Lantigua RN 10/02/[address] cart Eloisa Alfaro RN 10/02/23 9179 Emergency Department Encounter [facility] ED Patient: Kathya Hooper : [...] are mis-transcribed.) Fei Farooq MD [facility] Fei Farooq MD 10/02/23 1129 Pt was brought in via [facility] from [facility] for Left sided facial droop. Per EMS nurse is new and does not know patient very well but he is A&O x 2 at baseline. Per EMS the nurse states it was 20 mins ago. Contacted nurse that was caring for him and she states that was the first time she has seen him for that day, scene shifter did not report any problems. EMS states [...] schizophrenia. BS 131. documented in this encounter [facility] 10-02-2023 Emergency department Note This RN gave report to Marnie at [facility] at this time Mami Lantigua RN 10/02/23 1351 [facility] 10-02-2023 Emergency department Note This RN went to evaluate patient, was on 2L o2 and does not wear at baseline, plan is dc, this RN turned o2 off to trial patient, spo2 monitor on Mami Lantigua RN 10/02/23 1325 [facility] 10-02-2023 Emergency department Note Pt to ct via cart Eloisa Alfaro RN 10/02/23 1043 [facility] 10-02-2023 Emergency department Triage note Pt was brought in via [facility] from [facility] for Left sided facial droop. Per EMS nurse is new and does not know patient very well but he is A&O x 2 at baseline. Per EMS the nurse states it was 20 mins ago. Contacted nurse that was caring for him and she states that was the first time she has seen him for that day, scene shifter did not report any problems. EMS states [...] the facility. Hx of schizophrenia. BS 131. [facility] 10-02-2023 Physician Emergency department Note Emergency Department Encounter [facility] ED Patient: Kathya Hooper : 1955 Date of Evaluation: 10/02/2023 ED Supervising Physician: Fei Farooq MD I personally saw Kathya Hooepr and made/approved the management plan and take [...] are mis-transcribed.) Fei Farooq MD [facility] Fei Farooq MD 10/02/23 1129 [employer] Work Phone: 05-20-2022 Emergency department Note Report called to care home. Copy of Xray report sent with discharge packet Gary Ghosh RN 05/20/222007 [employer] 05-20-2022 Emergency department Note Report called to care home. Copy of Xray report sent with discharge packet Gary Ghosh RN 05/20/222007 Emergency Department Encounter [facility] ED Patient: Kathya Hooper : 1955 Date of Evaluation: 05/20/2022 ED Supervising Physician: Abelardo Rios DO I independently examined and evaluated Kathya Hooper. This will serve as my Supervisory note as the veterinary inspector of record and shared attestation. I did perform a substantive portion of the visit including all aspects of the Medical Decision Making. I wore appropriate PPE for the entirety of this encounter. In brief, Kathya Hooper is a 67 y.o. male that presents to the emergency department after his G-tube fell out today at the care home. Upon inspection of the G-tube, it appears [...] tube which fell out today at the care home. Tube was easily replaced in the emergency room. Will order KUB with dye study to confirm placement and discharge back to the care home. X-ray confirms due to position within the [...] Rios DO 05/20/222014 documented in this encounter [facility] 05-20-2022 Miscellaneous Notes Associated Order(s): Feeding Tube Replacement Procedure Feeding Tube Replacement Performed by: Dejah Hazel DO Authorized by: Abelardo Rios DO Consent: Consent obtained: Verbal Consent given by: Patient [place] protocol: Patient identity confirmed: Verbally with patient [...] DO Resident 05/20/221931 documented in this encounter [facility] 05-20-2022 Note Associated Order(s): Feeding Tube Replacement Procedure Feeding Tube Replacement Performed by: Dejah Hazel DO Authorized by: Abelardo Rios DO Consent: Consent obtained: Verbal Consent given by: Patient [place] protocol: Patient identity confirmed: Verbally with patient [...] immediate complications Dejah Hazel DO Resident 05/20/221931 [employer] Phone: 05-20-2022 Note Associated Order(s): Feeding Tube Replacement Procedure Feeding Tube Replacement Performed by: Dejah Hazel DO Authorized by: Abelardo Rios DO Consent: Consent obtained: Verbal Consent given by: Patient [place] protocol: Patient identity confirmed: Verbally with patient [...] immediate complications Dejah Hazel DO Resident 05/20/221931 [employer] Phone: 05-20-2022 Physician Emergency department Note Emergency Department Encounter [facility] ED Patient: Kathya Hooper : 1955 Date of Evaluation: 05/20/2022 ED Supervising Physician: Abelardo Rios DO I independently examined and evaluated Kathya Hooper. This will serve as my Supervisory note as the veterinary inspector of record and shared attestation. I did perform a substantive portion of the visit including all aspects of the Medical Decision Making. I wore appropriate PPE for the entirety of this encounter. In brief, Kathya Hooper is a 67 y.o. male that presents to the emergency department after his G-tube fell out today at the care home. Upon inspection of the G-tube, it appears [...] tube which fell out today at the care home. Tube was easily replaced in the emergency room. Will order KUB with dye study to confirm placement and discharge back to the care home. X-ray confirms due to position within the [...] conjunction with the Resident. I also supervised dtoson portions of any procedures performed by the [...] [employer] Abelardo Rios DO 05/20/222014 [employer] Phone: 03-24-2021 Note Hospitalist Discharg e Summary [...] Pneumonia. Treated with antibiotics. He resides in [facility]. He was stablized and discharged Diet NPO [...] Tomography ACCESSION EXAM DATE/TIME PROCEDURE ORDERING PROVIDER [id number] 03/18/2021 16:26 EST CTA Head/Neck w/ + w/o [id number] -alyson CASTRO CPT code 81299 70505 Q9967 Reason For Exam (CTA Head/Neck w/ + w/o contrast) AMS, dysphasia and ?aphasia possibly since yesterday- very poor historian from care home w/ unclear prior deficits - here w/ [...] airway at the (more content not included)... [facility] 03-24-2021 Hospital course Narrative Hospitalist Discharge [...] Pneumonia. Treated with antibiotics. He resides in [facility]. He was stablized and discharged Diet NPO [...] Tomography ACCESSION EXAM DATE/TIME PROCEDURE ORDERING PROVIDER [id number] 03/18/2021 16:26 EST CTA Head/Neck w/ + w/o [id number] alyson ARCHIBALD CPT code 38598 67502 Q9967 Reason For Exam (CTA Head/Neck w/ + w/o contrast) AMS, dysphasia and ?aphasia possibly since yesterday- very poor historian from care home w/ unclear prior deficits - here w/ [...] Tomography ACCESSION EXAM DATE/TIME PROCEDURE ORDERING PROVIDER [id number] 03/18/2021 16:27 EST CTA Chest w/ + w/o [id number] -CASTRO, Contrast BOO CPT code 70500 Q9967 Reason For Exam (CTA Chest w/ [...] Radiology ACCESSION EXAM DATE/TIME PROCEDURE ORDERING PROVIDER [id number] 03/19/2021 17:10 EST CR Chest Portable [id number] -NESHEIMBLAKEIN CPT code 56730 Reason For Exam (CR Chest Portable) hypoxia [...] Result Date: 03/18/2021 [id number] Radiology ACCESSION EXAM DATE/TIME PROCEDURE ORDERING PROVIDER [id number] 03/18/2021 15:30 EST CR Chest Portable [id number] -BOO CASTRO CPT code 37373 Reason For Exam (CR Chest Portable) sob, [...] Contact Information Primary Emergency Contact: Jason Hooper [facility] Relation: Parent Past Surgical History: Past Surgical History: Procedure Laterality Date CERVICAL FUSION 07/09/2014 C2-6 cervical fusion GASTROSTOMY TUBE PLACEMENT 07/13/2018 TRACHEOSTOMY 07/13/2018 Immunization History: Immunization History Administered Date(s) Administered Pneumococcal Polysaccharide ([id number]) 01/10/2017 Tdap (Boostrix, Adacel) 01/10/2017 Active Problems: Patient Active Problem List Diagnosis Code Closed fracture dislocation of cervical spine ([facility]) S12.9XXA Traumatic nondisp spondylolisthesis of C3 vertebra with closed fx, initial encounter ([facility]) S12.231A Closed wedge compression fracture of first thoracic vertebra ([facility]) S22.010A Central cord syndrome ([facility]) S14.129A Chronic latent schizophrenia ([facility]) F21 Alcohol abuse F10.10 Respiratory failure after trauma ([facility]) J96.90 Vitamin D insufficiency E55.9 Vertebral artery occlusion, 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 Hypokalemia E87.6 Ileus ([facility]) K56.7 TREVER (acute kidney injury) ([facility]) N17.9 Acute respiratory failure with hypoxia ([facility]) J96.01 Hospital-acquired pneumonia J18.9, Y95 Bilateral pleural effusion J90 Mild bibasilar atelectasis J98.11 Urinary retention R33.9 Prolonged Q-T interval on ECG R94.31 Pressure ulcer of sacral region, stage 2 ([facility]) L89.152 Abdominal wall abscess L02.211 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[facility]) K65.4 Hypoxia R09.02 Respiratory syncytial virus [...] MENTAL STATUS:} IV Access: { CHRIS IV ACCESS:789457686} Nursing Mobility/ADLs: Walking {CHP DME ADLs:754149321} Transfer {CHP DME ADLs:906615812} Bathing {P DME ADLs:129014899} Dressing {CHP DME ADLs:414905165} Toileting {CHP DME ADLs:720342807} Feeding {CHP DME ADLs:934609588} Commercial Loan Closer {P DME ADLs:533431093} Med Delivery { CHRIS MED Delivery:986505605} Wound Care Documentation and Therapy: Negative Pressure Wound Therapy Abdomen Left (Active) Number of days: 947 Wound Sacrum Mid (Active) Number of days: Elimination: Continence: Bowel: {YES / NO:} Bladder: {YES / NO:} Urinary Catheter: {Urinary Catheter:756147751} Colostomy/Ileostomy/Ileal Conduit: {YES / NO:73540} Date of Last BM: No intake or output data in the 24 hours ending 03/24/21 1013 I/O last 3 completed shifts: In: 660 [NG/GT:660] Out: - Safety Concerns: { CHRIS Safety Concerns:509445178} Impairments/Disabilities: { CHRIS Impairments/Disabilities:26171287 3} Nutrition Therapy: Current Nutrition Therapy: { CHRIS Diet List:460651371} Routes of Feeding: {[facility] DME Other Feedings:582308400} Liquids: {[facility] liquid thickness:28262} Daily Fluid Restriction: {[facility] DME Yes amt example:131180344} Last Modified Barium Swallow with Video (Video Swallowing Test): {Done Not Done Date:} Treatments at the Time of Hospital Discharge: Respiratory Treatments: Oxygen Therapy: {Therapy; copd oxygen:09347} Ventilator: { CC Vent List:599589301} Rehab Therapies: {THERAPEUTIC INTERVENTION:7542831590} Weight Bearing Status/Restrictions: {[facility] Weight Bearin} Other Medical Equipment (for information only, NOT a DME order): {EQUIPMENT:163802432} Other Treatments: Patient's personal belongings (please select all that are sent with patient): {[facility] DME Belongings:493203338} RN SIGNATURE: {Esignature:682863570} CASE MANAGEMENT/SOCIAL WORK SECTION Inpatient Status Date: Readmission Risk Assessment Score: Readmission Risk Risk of Unplanned Readmission: 25 Discharging to Facility/ Agency Name: [facility] Address: [address] [place] [address] Dialysis Facility (if applicable) Name: Address: Dialysis Schedule: Phone: Fax: Research Manufacturing Operator/Production Machine Operator signature: PHYSICIAN SECTION Prognosis: Good Condition at Discharge: Stable Rehab Potential (if transferring to Rehab): Good Recommended Labs or Other Treatments After Discharge: Physician Certification: I certify the above information and transfer of Kathya Hooper is necessary for the continuing treatment of the diagnosis listed and that he requires Detention Facility for greater 30 days. Update Admission [...] loss Fluid Accumulation: No significant fluid accumulation Job Order Clerk Strength: Not Performed Estimated Daily Nutrient Needs: Energy (kcal): 8613-5168 (25-30 kcal/kg IBW); Weight Used for Energy Requirements: [place] (86.2 kg) Protein (g): 86-103 (1.0-1.2 g protein/kg IBW); Weight Used for Protein Requirements: [place] (86.2 kg) Fluid (ml/day): per . At [...] on 03/02/21, October weight= 185.5# on 01/29/21) [place] Body Weight: 190 lbs; % [place] Body Weight 97.8 % BMI: 24 Adjusted [...] Skin, Weight Discharge Planning: Enteral Nutrition Contact: *[phone] Images from the original note were not [...] Pulmonary Critical Care and Sleep Medicine [address], [address] [place], [address] [address] Patient - Kathya Hooper, Age - 66 y.o. - 1955 Room Number - 465/4651 Consulting - Rafa Michel MD Primary Care Physician - No primary care provider on file[id number] Date of Admission - 03/19/2021 3:52 PM [...] of bed. Pt thought there was a endoscopy nurse in the corner of his room. When pt got his meds he calmed down. Pt now watching tv. Call light within reach. Bed alarm on. Images from the original note were not included. [facility], Pulmonary Critical Care and Sleep Medicine [address] [place] [address] Patient - Kathya Hooper, Age - 66 y.o. - 1955 Room Number - 465/4651 Consulting - Rafa Michel MD Primary Care Physician - No primary care provider on file. [facility] # - [id number] Date of Admission - 03/19/2021 3:52 PM [...] 66 y.o. - 1955 Room Number - 136/4651 N [facility] [id number] [id number] Date of Admission - 03/19/2021 3:52 PM [...] Date 03/21/21 0000 - 03/21/21 2359 Shift 1309-2433 7563-0849 0783-7778 24 Hour Total INTAKE NG/GT(mL/kg) 542(6.4) 542(6.4) [...] included. Hospitalist Progress Note 03/21/2021 9:41 AM [phone]: Please page me for patient care issues. [phone]: Please page [facility] night Hospitalist for any issues. Subjective: Admit Date: 03/19/2021 PCP: No primary care provider on file. Room#: 465/6552 Interval History: Lethargic, hard to arouse this [...] Trach PEG 07/13/2018. Presented from SNF to [facility] ED with worsening SOB. Evaluated in [...] loss Fluid Accumulation: No significant fluid accumulation Job Order Clerk Strength: Not Performed Estimated Daily Nutrient Needs: Energy (kcal): 8581-9834 (25-30 kcal/kg IBW); Weight Used for Energy Requirements: [place] (86.2 kg) Protein (g): 86-103 (1.0-1.2 g protein/kg IBW); Weight Used for Protein Requirements: [place] (86.2 kg) Fluid (ml/day): per MD. At facility receivin mL free water daily from EN and flushes; Method Used for Fluid Requirements: Other (Comment) Nutrition Related Findings: Massimo score= 15. No skin breakdown or edema noted. 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 Hospitalist Progress Note 03/20/2021 9:58 AM [phone]: Please page me for patient care issues. [phone]: Please page [facility] night Hospitalist for any issues. Subjective: Admit Date: 03/19/2021 PCP: No primary care provider on file. Room#: 331/3980 Interval History: He continues to have cough [...] 03/18/2021 Mr. Hooper was seen at the [facility] emergency department for low oxygen levels. [...] cannot be sent through Care Everywhere.Viral Infections ([place]izen [place])documented in this encounter [facility] Work Phone: Evaluation note Diagnosis PEG tube malfunction (HCC)- Primary Mechanical complication of gastrostomy [facility] Work Phone: Evaluation note* Diagnosis Feeding tube dysfunction, initial encounter- Primary documented in this encounter [facility] Work Phone: Evaluation note* Diagnosis Respiratory syncytial virus (RSV)- Primary Hypoxia Hypoxemia documented in this encounter [facility] Work Phone: Evaluation note* Diagnosis Respiratory syncytial virus (RSV)- Primary Hypoxia Hypoxemia documented [facility] Work Phone: Evaluation note* Diagnosis PEG tube malfunction (HCC)- Primary Mechanical complication of gastrostomy documented in this encounter [facility] Work Phone: Evaluation note* Diagnosis Contusion of right hip, initial encounter- Primary documented in this encounter [facility] Work Phone: Evaluation noteNo assessment information available [facility] Work Phone: Evaluation note* Diagnosis Dyspnea, unspecified type- Primary documented in [facility]* Diagnosis Dysphagia, oropharyngeal phase Feeding difficulties Feeding difficulties and mismanagement documented in this encounter [facility]* Diagnosis Dysphagia, oropharyngeal phase- Primary Feeding difficulties Feeding difficulties and mismanagement Dysphagia, oropharyngeal phase Feeding difficulties Feeding difficulties and mismanagement [facility]ged [facility]- Primary [facility] [place] [facility] Diagnosis Chronic cough Cough [facility] [place] [facility]* Diagnosis Chronic cough- Primary Cough Chronic cough Cough [facility]* Attachments The following attachments cannot be sent through Care Everywhere. * PEG (Percutaneous Endoscopic Gastrostomy): Post-op ([place]izen [place]) documented in this [facility] Work Phone: Hospital Discharge instructions* Attachments The following attachments cannot be sent through Care Everywhere. * Feeding Tube: General Info (Citizen [place]) documented in this [facility] Work Phone: Hospital Discharge instructions* Instructions* Mary Cochran PA-C - 05/15/2021 Please return to the ED if you have any new or worsening symptoms. documented in this [facility] Work Phone: Hospital Discharge instructions* Attachments The following attachments cannot be sent through Care Everywhere. * Hip Pain ([place]izen [place]) * Contusion ([place]izen [place]) documented in this [facility] Work Phone: Hospital Discharge instructions* Attachments The following attachments cannot be sent through Care Everywhere. * Shortness of Breath (Dyspnea) Discharge Instructions (Citizen [place]) documented in this [facility] Discharge instructions* Attachments The following attachments cannot be sent through Care Everywhere. * How to Care for Your Gastrostomy Tube ([place]izen [place]) [facility] (n[facility])No reason for referral information availableWWexner [facility] Work Phone: Reason for visit Narrative* Imaging (Routine) - Closed Specialty Diagnoses / Procedures Referred By Soo t Referred To Contact Radiology Diagnoses Chronic cough Procedures CT chest wo IV contrast Rashaad Smith APRN - NP [id number] [address] Phone: tel: fax: Referral ID Status Reason Start Date Expiration Date Visits Re quested Visits Authorized [id number] Closed 06/12/2024 06/12/2025 1 1 [facility] Summary Purpose Family History No Family History Records FoundNo Family History Records FoundThere may be information available, but it has not been provided by the sender.No Family History Records FoundNo Family History Records FoundNo Family History Records FoundNo Family History Records Found Advance Directives No Advanced Directives Records FoundDocuments on File Type Date Recorded Patient Form Layer Expl anation ACP-Advance Directive ACP-Advance Directive 08/07/2018 1:53 PM ACP-Power of Packaging Coordinator Latest Code Status on File Code Status Date Activated Date Inactivated Comments Full Code 08/15/2018 8:27 PM 08/22/2018 4:31 PM Full Code 08/15/2018 8:12 PM 08/15/2018 8:27 PM Full Code 07/08/2018 8:28 PM 08/01/2018 2:39 PM Documents on File Type Date Recorded Patient Form Layer Expl anation ACP-Advance Directive ACP-Power of Packaging Coordinator ACP-Advance Directive 08/07/2018 1:53 PM Latest Code Status on File Code Status Date Activated Date Inactivated Comments Full Code 03/20/2021 12:17 AM Full Code 08/15/2018 8:27 PM 08/22/2018 4:31 PM Documents on File Type Date Recorded Patient Form Layer Expl anation ACP-Advance Directive ACP-Power of Packaging Coordinator ACP-Advance Directive 03/26/2021 9:48 AM ACP-Advance Directive 08/07/2018 1:53 PM Latest Code Status on File Code Status Date Activated Date Inactivated Comments Full Code 03/20/2021 12:17 AM 03/24/2021 3:23 PM Documents on File Type Date Recorded Patient Form Layer Expl anation Advance Directives and Livin g Will Advance Directives and Livin g Will 08/07/2018 1:53 PM Power of Packaging Coordinator Documents on File Type Date Recorded Patient Form Layer Expl anation Advance Directives and Livin g Will 05/23/2022 10:48 AM Advance Directives and Livin g Will 03/19/2021 Documents on File Type Date Recorded Patient Form Layer Expl anation Advance Directives and Living Will 03/19/2021 Documents on File Type Date Recorded Patient Form Layer Expl 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 * Feeding Tube: General Info ([place]izen [place]) documented in this encounter Assessments Diagnosis PEG [...] section and content) DATE CREATED AUTHOR [facility] DATE CREATED AUTHOR AUTHOR'S ORGANIZ ATION 10/06/2018 [facility] DATE CREATED AUTHOR AUTHOR'S ORGANIZ ATION 03/26/2021 [facility] DATE CREATED AUTHOR AUTHOR'S ORGANIZ ATION 05/21/2021 [facility] DATE CREATED AUTHOR AUTHOR'S ORGANIZ ATION 06/28/2024 [facility] DATE CREATED AUTHOR AUTHOR'S ORGANIZ ATION 10/11/2024 [facility] Source Comments (unrecognize d section and content) In the event this informatio n is protected by the Federal Confidentiality of Alcohol and Drug Abuse Patient Records regulations: The Federal rules restrict any use of the information to criminally investigate or prosecute any alcohol or drug abuse patient.[facility] Reason for Visit (unrecogniz ed section and [...] [phone] (Given - Provider: Amelie Taylor [facility])1356 (Given - Provider: Amelie Taylor [facility])1648 (Given - Provider: Amelie Taylor HABILITATION ASSISTANT)2212 (Given - Provider: Claire Lagos [facility]) 0841 (Given - Provider: Ana Cabrera [facility])1213 (Given - Provider: Ana Cabrera HABILITATION ASSISTANT)1622 (Given - Provider: Ana Cabrera HABILITATION ASSISTANT)2037 (Given - Provider: Perla Loyola [facility]) 1020 (Given - Provider: Gabriel Soares [facility])1200 (Due)1600 (Due)2000 (Due) lansoprazole (PREVACID SOLUTAB) [...] [id number] 1003 (Given - Provider: Amelie Taylor HABILITATION ASSISTANT)2215 (Given - Provider: Claire Lagos HABILITATION ASSISTANT) 0841 (Given - Provider: Ana Cabrera HABILITATION ASSISTANT)2051 (Given - Provider: Perla Loyola HABILITATION ASSISTANT) 1200 (Due - Provider: Gabriel Soares HABILITATION ASSISTANT)2100 (Due) sodium chloride flush 0.9 % injection [...] Tra Pearl, RN) 1055 (Given - Provider: Jvoana Armstrong, RN) 0914 (Given - Provider: Sandeep [...] Status Dates Renard Burgos Attending Provider Active 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 Relationship Specialty Start Date End Date Renard Burgos [address] [place] [phone] PCP - General Internal Medicine 10/16/23 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 Relationship Specialty Start Date End Date Renard Burgos [address] [place] [phone] PCP - General Internal Medicine 10/16/23 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 Relationship Specialty Start Date End Date Renard Burgos [address] [place] [phone] PCP - General Internal Medicine 10/16/23 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 [employer] provides no warranty or guarantee of the accuracy or completeness of information in this document.
[2024-10-14 10:29] LABS: Absolute Lymphocyte Count 1.77 X10^3/uL (0.83-4.51); Absolute Neutrophil Count 4.8 X10^3/uL (2.0-7.7); Basophil# 0.05 X10^3/uL; Basophil% 0.7 % (0-1); Eosinophil# 0.06 X10^3/uL; Eosinophils% 0.8 % (0-5); Hematocrit 42.7 % (40-54); Hemoglobin 13.9 g/dL (13.0-16.5); Lymphocyte # 1.77 X10^3/ul (0.83-4.51); Lymphocyte % 24.2 % (19-41); Mean Corp Hgb Conc 32.6 g/dL (32-36); Mean Corpuscular Hgb 29.7 pg (27.0-32.0); Mean Corpuscular Volume 91.2 fL (80-94); Mean Platelet Vol. 11.1 fl (6.2-12.0); Monocyte# 0.63 X10^3/uL; Monocyte% 8.6 % (0-10); NRBC Flagged by Analyzer 0 % (0-5); Neutrophil # 4.77 X10^3/uL (2.7-7.7); Neutrophil % 65.4 % (47-70); Platelet Count 232 K/mm3 (150-450); RBC Distribution Width CV 13.2 % (11.6-14.6); RBC Distribution Width SD 44.1 fl (35.1-43.9); Red Blood Count 4.68 M/mm3 (4.6-6.2); White Blood Count 7.3 K/mm3 (4.4-11.0)
== END ==
LOC: OLS.SANC 04:00
PROVIDERS: Referring Provider Internal Medicine; Visit Provider Internal Medicine
DX: Z79.899 Other long term (current) drug therapy (principal)
CPT/HCPCS: 36415; 85025

== ENCOUNTER → 2024-10-21 | Outpatient (REF) | payer MEDICAID, SELFPAY ==
--- OUTSIDE RECORDS SUMMARY | 2024-10-21 03:58 | XMS RPT_ITS | CCD ---
Author Organization [facility] Care Team Providers Care Chart Snatcher Name Role Phone JORDAN OREILLY Attending Unavailable PROVIDER, UNKNOWN Referring Unavailable Nathanael Cazares Primary Care Unavailable PROVIDER, UNKNOWN Referring Unavailable Nathanael Cazares Primary Care Unavailable Jaime Lindquist Attending Unavailable Unavailable Primary Care Provider UnavailBethany Navarrete Primary Care Provider Jarvis Kendall MD Unavailable [phone] Bethany Russell MD Primary Care Provider [phone] Unavailable Primary Care Provider Unavailclifton Latif MD, [...] Katsaros Renard GARLAND Referring Provider Unavailab le Katsaros OLS, Peter Attending Provider Unavailab le Katsaros OLS, Peter Attending Provider Unavailab le Katsaros OLS, Peter Attending Unavailable Katsaros OLS, [...] Katsaros OLS, Peter Referring Unavailable Katsaros OLS, Peter Attending Unavailable [...] Katsaros OLS, Peter Referring Unavailable Katsaros OLS, Peter Attending Unavailable Katsaros OLS, Peter Attending Unavailable Katsaros OLS, Peter Attending Unavailable Katsaros OLS, Peter Attending Unavailable Katsaros OLS, Peter Attending Unavailable Katsaros OLS, Peter Attending Unavailable Katsaros OLS, Renard Attending Unavailable Katsaros OLS, Renard Attending Unavailable Katsaros OLS, Peter Attending Unavailable Katsaros OLS, Peter Attending Unavailable Katsaros OLS, Peter Referring Unavailable Katsaros OLS, Peter Attending Unavailable Katsaros OLS, Peter Attending Unavailable Katsaros OLS, Peter Attending Unavailable Katsaros OLS, Peter Attending Unavailable Katsaros OLS, Renard Attending Unavailable Katsaros OLS, Peter Attending Unavailable Katsaros OLS, Peter Attending Unavailable Katsaros OLS, Peter Referring Unavailable Renard Jackson Attending Unavailable Renard Jackson Attending Unavailable Renard Jackson Attending Unavailable Renard Jackson Attending Unavailable Renard Jackson Referring Unavailable Renard Jackson Attending Unavailable Medications Current Medications Medication Drug Class(es) Dates Sig (Normalized) Sig (Original) Acetaminophen (18 sources) Start: 03-20-2021 acetaminophen (TYLENOL) tablet 650 mg Start: 05-22-2019 ACETAMINOPHEN 325 MG TABS 2 tablet via peg tube as needed ACETAMINOPHEN [id number] [facility] albuterol 0.83 mg/ml inhalation solution (1 source) beta2-Adrenergic Agonist Start: 03-19-2021 albut veronica (PROVENTIL) nebulizer solution 2.5 mg albuterol 0.833 mg/ml / ipratropium bromide 0.167 mg/ml inhalation solution (18 sources) Anticholinergic, beta2-Adrenergic Agonist Start: 03-20-2021 ipratropium-alb utero l (DUONEB) nebulizer solution 1 ampule Start: 05-22-2019 IPRATROPIUM-AL BUTEROL 0.5-2.5 (3) MG/3ML SOLN 3ml via nebulizer every 4 hours as needed IPRATROPI[facility]EROL [id number] [facility] Start: 08-22-2018 take 3 mL by inhalat ion every four hours ipratropium-albuterol (DUONEB) 0.5-2.5 (3) MG/3ML SOLN nebulizer solution Inhale 3 mLs into the lungs every 4 hours 360 mL 0 08/22/2018 Active aspirin 81 mg chewable tablet (9 sources) Platelet Aggregation Inhibitor, Nonsteroidal Anti-inflammatory Drug Start: 05-22-2019 ASPIRIN ADULT LOW STRENGTH 81 MG CHEW one tablet via peg tube daily ASPIRIN [id number] [facility] Start: 08-23-2018 aspirin 81 MG chewable tablet 1 tablet by Per NG tube route daily 30 tablet 3 08/23/2018 Active atorvastatin 40 mg oral tablet (9 sources) HMG-CoA Reductase Inhibitor Start: 05-22-2019 ATORVASTATIN CALCIUM 40 MG TABS one tablet via peg tube daily ATORVASTATIN CALCIUM [id number] [facility] Start: 08-22-2018 atorvastatin ( LIPITOR) 40 MG tablet 1 tablet by Per NG tube route nightly 30 tablet 3 08/22/2018 Active castor oil 0.788 mg/mg / jordanian balsam 0.087 mg/mg topical ointment (7 sources) Standardized Chemical Allergen Start: 08-22-2018 Balsam [place] O il (VENELEX) OINT ointment Apply topically [...] 250mg via peg tube twice daily CLOZAPINE [id number] [facility] Start: 08-22-2018 cloZAPine (AILYN ZARIL) 100 MG tablet 1 tablet by Per G Tube route 2 times daily 30 tablet 3 08/22/2018 Active cloZAPine (Cloza ril) 100 MG tablet Take 225 mg by mouth 2 times daily. Active take 1 tablet by edmar once daily cloZAPine (Clozaril) 50 MG tablet Take 50 mg by mouth daily. Active docusate sodium 10 mg/ml ora l suspension (18 sources) Start: 05-22-2019 DOCU 50 MG/5ML LIQD 5ml via peg tube twice daily DOCUSATE SODIUM [id number] [facility] Start: 08-22-2018 docusate (COLA CE) 50 MG/5ML liquid 10 mLs by Per NG tube route 2 times daily 0 08/22/2018 Active take 1 capsule by [facility] twice daily docusate sodium (Colace) 100 MG [...] one tablet via peg tube nightly MELATONIN [id number] Ana Stevenson [employer] Start: 08-22-2018 melatonin 3 MG TABS tablet [...] needed. 0 08/23/2018 Active polyethylene glycol 3350 32613 mg powder for oral solution (1 source) [...] Sig (Normalized) Sig (Original) barium sulfate (Varibar [place]side, Varibar Honey) 40 % suspension 5 mL [...] SUPP every 24 hours as needed BISACODYL [id number] Ana Diesch [employer] Start: 05-22-2019 BISACODYL EC 5 MG TBEC one tablet via peg tube daily as needed BISACODYL [id number] Ana Diesch [employer] chlorhexidine gluconate 1.2 mg/ml mouthwash (10 sources) Start: 05-22-2019 PERIDEX 0.12 % SOLN 15ml twice daily CHLORHEXIDINE GLUCONATE [id number] Ana Diesch [employer] chlorhexidine (P eridex) 0.12 % solution Use 15 mL in the mouth or throat if needed for wound care. Active cholecalciferol 1000 unt oral tablet (16 sources) Vitamin D Start: 05-22-2019 VITAMIN D3 25 MCG (1000 UT) TABS one tablet via peg tube daily CHOLECALCIFEROL [id number] Ana Diesch [employer] cholecalciferol (SM Vitamin D3) 25 MCG (1000 UT) tablet Take 1,000 Units by mouth daily. Active dextromethorphan hydrobromide 2 mg/ml / guaiFENesin 20 mg/ml oral solution (1 source) Uncompetitive R-oqjtja-I-aspartate Receptor Antagonist, Sigma-1 Agonist Start: 05-22-2019 ROBITUSSIN PEAK COLD DM SYRP 5ml via peg tube every 4 hours as needed for cough DEXTROMETHORPHAN-GUAIFENESIN SYRP [id number] Ana Stevenson LPN magnesium hydroxide 240 mg/ml oral suspension (1 source) Start: 05-22-2019 MILK OF MAGNESIA CONCENTRATE SUSP 30ml via peg tube every 24 hours MAGNESIUM HYDROXIDE SUSP [id number] Ana Stevenson LPN methylPREDNISolone 40 mg injection (2 sources) Corticosteroid Start: 03-20-2021 End: 03-24-2021 methylPREDNISolone sodium (SOLU-MEDROL) injection 40 mg MULTIPLE VITAMINS-MINERALS (1 source) Start: 05-22-2019 MENS MULTIVITAMIN TABS one tablet via peg tube daily MULTIPLE VITAMINS-MINERALS [id number] Ana Stevenson LPN POLYETHYLENE GLYCOL 1450 (1 source) Start: 05-22-2019 POLYETHYLENE GLYCOL 1450 POW D 17 grams via peg tube twice daily POLYETHYLENE GLYCOL 1450 [id number] Ana Stevenson LPN SENNOSIDES-DOCUSATE SODIUM (1 source) Start: 05-22-2019 SENNA PLUS 8.6-50 MG TABS on e tablet via peg tube daily SENNOSIDES-DOCUSATE SODIUM 51688808841 Ana Stevenson LPN 50 ml sodium chloride [...] pneumoniae as the cause of diseases classd elswhr] Onset: 9 Episodic Chronic ulcer of skin [...] Onset: 9 07-11-2018 Other aftercare (2 sources) rn long term care (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; Translations: [[facility] (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] Onset: 9 Episodic Other aftercare (2 sources) Other residential (current) drug therapy; Translations: [Other residential (current) drug therapy] Onset: 5 Episodic Other aftercare (1 source) [facility] (current) use of antibiotics; Translations: [rn long term care (current) use of antibiotics] Onset: 5 Episodic [...] 9 07-23-2018 Episodic Other aftercare (1 source) [facility] (current) use of 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; Translations: [rn long term care (current) use of 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] Onset: 5 Episodic [...] Interpretation Reference Range Facility CBC W/Diff, Automatedon 09-29 Absolute Lymph 1.77 X10 3/uL Normal 0.83-4.51 [facility] Comment on above: Order Comment: 109 Performed By: #### L 100.0100 ####[facility] [address] [facility] [address]. [place], [place], [id number] Absolute Neut 4.8 X10 3/uL Normal 2.0-7.7 [facility] Comment on above: Order Comment: 109 Performed By: #### L 100.0100 ####[facility] [address] [facility] [place], [address] Basophils/100 WBC (Bld) 0.7 % Normal 0-1 [facility] Comment on above: Order Comment: 109 Performed By: #### L 100.0100 ####[facility] [address] [place], [address] Eosinophils/100 WBC (Bld) 0.8 % Normal 0-5 [facility] Comment on above: Order Comment: 109 Performed By: #### L 100.0100 ####[facility] [address] [place], [address] Erythrocyte distribution width (RBC) [Ratio] 13.2 % Normal 11.6-14.6 [facility] Comment on above: Order Comment: 109 Performed By: #### L 100.0100 ####[facility] [address] [place], [address] Hematocrit (Bld) [Volume fraction] 42.7 % Normal 40-54 [facility] Comment on above: Order Comment: 109 Performed By: #### L 100.0100 ####[facility] [address] [place], [address] Hemoglobin (Bld) [Mass/Vol] 13.9 g/dL Normal 13.0-16.5 [facility] Comment on above: Order Comment: 109 Performed By: #### L 100.0100 ####[facility] [address] [place], [address] IG% 0.300 Normal 0.0-0.9 [facility] Comment on above: Order Comment: 109 Result Comment: IG% - Immature Granulocytes (promyelocytes, myelocytes andmetamyelocytes) > 1% indicates that a LEFT SHIFT is Present. Performed By: #### L 100.0100 ####[facility] [address] [place], [address] Lymphocytes/100 WBC (Bld) 24.2 % Normal 19-41 [facility] Comment on above: Order Comment: 109 Performed By: #### L 100.0100 ####[facility] [address] [place], [address] MCH (RBC) [Entitic mass] 29.7 pg Normal 27.0-32.0 [facility] Comment on above: Order Comment: 109 Performed By: #### L 100.0100 ####[facility] [address] [place], [address] MCHC (RBC) [Mass/Vol] 32.6 g/dL Normal 32-36 [facility] Comment on above: Order Comment: 109 Performed By: #### L 100.0100 ####[facility] [address] [place], [address] MCV (RBC) [Entitic vol] 91.2 fL Normal 80-94 [facility] Comment on above: Order Comment: 109 Performed By: #### L 100.0100 ####[facility] [address] [place], [address] Monocytes/100 WBC (Bld) 8.6 % Normal 0-10 [facility] Comment on above: Order Comment: 109 Performed By: #### L 100.0100 ####[facility] [address] [place], [address] Neutrophils/100 WBC (Bld) 65.4 % Normal 47-70 [facility] Comment on above: Order Comment: 109 Performed By: #### L 100.0100 ####[facility] [address] [place], [address] Nucleated RBC (Bld) [#/Vol] 0 10*3/uL Normal 0-5 [facility] Comment on above: Order Comment: 109 Performed By: #### L 100.0100 ####[facility] [address] [place], [address] Platelet mean volume (Bld) [Entitic vol] 11.1 fL Normal 6.2-12.0 [facility] Comment on above: Order Comment: 109 Performed By: #### L 100.0100 ####[facility] [address] [place], [address] Platelets (Bld) [#/Vol] 232 10*3/uL Normal 150-450 [facility] Comment on above: Order Comment: 109 Performed By: #### L 100.0100 ####[facility] [address] [place], [address] RBC (Bld) [#/Vol] 4.68 10*6/uL Normal 4.6-6.2 [facility] Comment on above: Order Comment: 109 Performed By: #### L 100.0100 ####[facility] [address] [place], [address] RDW SD 44.1 fl High 35.1-43.9 [facility] Comment on above: Order Comment: 109 Performed By: #### L 100.0100 ####[facility] [address] [place], [address] WBC (Bld) [#/Vol] 7.3 10*3/uL Normal 4.4-11.0 [facility] Comment on above: Order Comment: 109 Performed By: #### L 100.0100 ####[facility] [address] [place], [address] CBC W/Diff, Automatedon 06-0 9-2024 Absolute Lymph 2.20 X10 3/uL Normal 0.83-4.51 [facility] Comment on above: Order Comment: 109-1 Performed By: #### L 100.0100 ####[facility] [address] [place], [address] Absolute Neut 5.1 X10 3/uL Normal 2.0-7.7 [facility] Comment on above: Order Comment: 109-1 Performed By: #### L 100.0100 ####[facility] [address] [place], [address] Basophils/100 WBC (Bld) 0.5 % Normal 0-1 [facility] Comment on above: Order Comment: 109-1 Performed By: #### L 100.0100 ####[facility] [address] [place], [address] Eosinophils/100 WBC (Bld) 0.9 % Normal 0-5 [facility] Comment on above: Order Comment: 109-1 Performed By: #### L 100.0100 ####[facility] [address] [place], [address] Erythrocyte distribution width (RBC) [Ratio] 13.2 % Normal 11.6-14.6 [facility] Comment on above: Order Comment: 109-1 Performed By: #### L 100.0100 ####[facility] [address] [place], [address] Hematocrit (Bld) [Volume fraction] 40.8 % Normal 40-54 [facility] Comment on above: Order Comment: 109-1 Performed By: #### L 100.0100 ####[facility] [address] [place], [address] Hemoglobin (Bld) [Mass/Vol] 13.8 g/dL Normal 13.0-16.5 [facility] Comment on above: Order Comment: 109-1 Performed By: #### L 100.0100 ####[facility] [address] [place], [address] IG% 0.200 Normal 0.0-0.9 [facility] Comment on above: Order Comment: 109-1 Result Comment: IG% - Immature Granulocytes (promyelocytes, myelocytes andmetamyelocytes) > 1% indicates that a LEFT SHIFT is Present. Performed By: #### L 100.0100 ####[facility] [address] [place], [address] Lymphocytes/100 WBC (Bld) 27.2 % Normal 19-41 [facility] Comment on above: Order Comment: 109-1 Performed By: #### L 100.0100 ####[facility] [address] [place], [address] MCH (RBC) [Entitic mass] 30.0 pg Normal 27.0-32.0 [facility] Comment on above: Order Comment: 109-1 Performed By: #### L 100.0100 ####[facility] [address] [place], [address] MCHC (RBC) [Mass/Vol] 33.8 g/dL Normal 32-36 [facility] Comment on above: Order Comment: 109-1 Performed By: #### L 100.0100 ####[facility] [address] [place], [address] MCV (RBC) [Entitic vol] 88.7 fL Normal 80-94 [facility] Comment on above: Order Comment: 109-1 Performed By: #### L 100.0100 ####[facility] [address] [place], [address] Monocytes/100 WBC (Bld) 8.4 % Normal 0-10 [facility] Comment on above: Order Comment: 109-1 Performed By: #### L 100.0100 ####[facility] [address] [place], [address] Neutrophils/100 WBC (Bld) 62.8 % Normal 47-70 [facility] Comment on above: Order Comment: 109-1 Performed By: #### L 100.0100 ####[facility] [address] [place], [address] Nucleated RBC (Bld) [#/Vol] 0 10*3/uL Normal 0-5 [facility] Comment on above: Order Comment: 109-1 Performed By: #### L 100.0100 ####[facility] [address] [place], [address] Platelet mean volume (Bld) [Entitic vol] 11.2 fL Normal 6.2-12.0 [facility] Comment on above: Order Comment: 109-1 Performed By: #### L 100.0100 ####[facility] [address] [place], [address] Platelets (Bld) [#/Vol] 214 10*3/uL Normal 150-450 [facility] Comment on above: Order Comment: 109-1 Performed By: #### L 100.0100 ####[facility] [address] [place], [address] RBC (Bld) [#/Vol] 4.60 10*6/uL Normal 4.6-6.2 [facility] Comment on above: Order Comment: 109-1 Performed By: #### L 100.0100 ####[facility] [address] [place], [address] RDW SD 43.0 fl Normal 35.1-43.9 [facility] Comment on above: Order Comment: 109-1 Performed By: #### L 100.0100 ####[facility] [address] [place], [address] WBC (Bld) [#/Vol] 8.1 10*3/uL Normal 4.4-11.0 [facility] Comment on above: Order Comment: 109-1 Performed By: #### L 100.0100 ####[facility] [address] [place], [address] Absolute lymphocyte countOrd ered By: Renard Burgos on 09-30-2024 Lymphocytes Auto (Unsp spec) [#/Vol] 3.13 10*3/uL 0.83-4.51 [facility] Absolute neutrophil countOrd ered By: Renard Burgos on 09-30-2024 Neutrophils (Bld) [#/Vol] 5.6 10*3/uL 2.0-7.7 [facility] Automated lymphocyte count a s percentage of total leukocytesOrdered By: Renard Hensleydiego on 09-30-2024 Lymphocytes/100 WBC Auto (Unsp spec) 31.7 % 19-41 [facility] Basophil percentageOrdered B y: Renard Burgos on 09-30-2024 Basophils/100 WBC (Bld) 0.6 % 0-1 [facility] CBC W/Diff, Automatedon Absolute Lymph 3.13 X10 3/uL Normal 0.83-4.51 [facility] Comment on above: Order Comment: 109-1 Performed By: #### L 100.0100 ####[facility] [address] [place], [address] Absolute Neut 5.6 X10 3/uL Normal 2.0-7.7 [facility] Comment on above: Order Comment: 109-1 Performed By: #### L 100.0100 ####[facility] [address] [place], [address] Basophils/100 WBC (Bld) 0.6 % Normal 0-1 [facility] Comment on above: Order Comment: 109-1 Performed By: #### L 100.0100 ####[facility] [address] [place], [address] Eosinophils/100 WBC (Bld) 0.7 % Normal 0-5 [facility] Comment on above: Order Comment: 109-1 Performed By: #### L 100.0100 ####[facility] [address] [place], [address] Erythrocyte distribution width (RBC) [Ratio] 13.0 % Normal 11.6-14.6 [facility] Comment on above: Order Comment: 109-1 Performed By: #### L 100.0100 ####[facility] [address] [place], [address] Hematocrit (Bld) [Volume fraction] 46.9 % Normal 40-54 [facility] Comment on above: Order Comment: 109-1 Performed By: #### L 100.0100 ####[facility] [address] [place], [address] Hemoglobin (Bld) [Mass/Vol] 15.3 g/dL Normal 13.0-16.5 [facility] Comment on above: Order Comment: 109-1 Performed By: #### L 100.0100 ####[facility] [address] [place], [address] IG% 0.300 Normal 0.0-0.9 [facility] Comment on above: Order Comment: 109-1 Result Comment: IG% - Immature Granulocytes (promyelocytes, myelocytes andmetamyelocytes) > 1% indicates that a LEFT SHIFT is Present. Performed By: #### L 100.0100 ####[facility] [address] [place], [address] Lymphocytes/100 WBC (Bld) 31.7 % Normal 19-41 [facility] Comment on above: Order Comment: 109-1 Performed By: #### L 100.0100 ####[facility] [address] [place], [address] MCH (RBC) [Entitic mass] 29.7 pg Normal 27.0-32.0 [facility] Comment on above: Order Comment: 109-1 Performed By: #### L 100.0100 ####[facility] [address] [place], [address] MCHC (RBC) [Mass/Vol] 32.6 g/dL Normal 32-36 [facility] Comment on above: Order Comment: 109-1 Performed By: #### L 100.0100 ####[facility] [address] [place], [address] MCV (RBC) [Entitic vol] 91.1 fL Normal 80-94 [facility] Comment on above: Order Comment: 109-1 Performed By: #### L 100.0100 ####[facility] [address] [place], [address] Monocytes/100 WBC (Bld) 10.4 % High 0-10 [facility] Comment on above: Order Comment: 109-1 Performed By: #### L 100.0100 ####[facility] [address] [place], [address] Neutrophils/100 WBC (Bld) 56.3 % Normal 47-70 [facility] Comment on above: Order Comment: 109-1 Performed By: #### L 100.0100 ####[facility] [address] [place], [address] Nucleated RBC (Bld) [#/Vol] 0 10*3/uL Normal 0-5 [facility] Comment on above: Order Comment: 109-1 Performed By: #### L 100.0100 ####[facility] [address] [place], [address] Platelet mean volume (Bld) [Entitic vol] 11.7 fL Normal 6.2-12.0 [facility] Comment on above: Order Comment: 109-1 Performed By: #### L 100.0100 ####[facility] [address] [place], [address] Platelets (Bld) [#/Vol] 208 10*3/uL Normal 150-450 [facility] Comment on above: Order Comment: 109-1 Performed By: #### L 100.0100 ####[facility] [address] [place], [address] RBC (Bld) [#/Vol] 5.15 10*6/uL Normal 4.6-6.2 [facility] Comment on above: Order Comment: 109-1 Performed By: #### L 100.0100 ####[facility] [address] [place], [address] RDW SD 42.7 fl Normal 35.1-43.9 [facility] Comment on above: Order Comment: 109-1 Performed By: #### L 100.0100 ####[facility] [address] [place], [address] WBC (Bld) [#/Vol] 9.9 10*3/uL Normal 4.4-11.0 [facility] Comment on above: Order Comment: 109-1 Performed By: #### L 100.0100 ####[facility] [address] [place], [address] Eosinophil percentageOrdered By: Renard Burgos on 09-30-2024 Eosinophils/100 WBC (Bld) 0.7 % 0-5 [facility] Erythrocyte distribution wid th ratioOrdered By: Renard Burgos on 09-30-2024 Erythrocyte distribution width (RBC) [Ratio] 13.0 % 11.6-14.6 [facility] Erythrocyte distribution wid th standard deviationOrdered By: Renard Burgos on 09-30-2024 Erythrocyte distribution width (RBC) [Ratio] 42.7 fl 35.1-43.9 [facility] Hematocrit Auto (Bld) [Volum e fraction]Ordered By: Renard Burgos on 09-30-2024 Hematocrit (Bld) [Volume fraction] 46.9 % 40-54 [facility] Hemoglobin measurementOrdere d By: Renard Burgos on 09-30-2024 Hemoglobin (Bld) [Mass/Vol] 15.3 g/dL 13.0-16.5 [facility] Immature granulocytes/100 WB C Auto (Bld)Ordered By: Renard Burgos on 09-30-2024 Immature granulocytes/100 WBC (Bld) 0.300 % 0.0-0.9 [facility] Comment on above: IG% - Immature Granu locytes (promyelocytes, myelocytes and metamyelocytes) > 1% indicates that a LEFT SHIFT is Present. MCV (mean corpuscular volume ) determinationOrdered By: Renard Burgos on 09-30-2024 MCV (RBC) [Entitic vol] 91.1 fL 80-94 [facility] Mean corpuscular hemoglobin (MCH) determinationOrdered By: Renard Burgos on 09-30-2024 MCH (RBC) [Entitic mass] 29.7 pg 27.0-32.0 [facility] Mean corpuscular hemoglobin concentration (MCHC) determinationOrdered By: Renard Burgos on 09-30-2024 MCHC (RBC) [Mass/Vol] 32.6 g/dL 32-36 [facility] Mean platelet volume determi nationOrdered By: Renard Burgos on 09-30-2024 Platelet mean volume (Bld) [Entitic vol] 11.7 fL 6.2-12.0 [facility] Monocyte percentageOrdered B y: Renard Burgos on 09-30-2024 Monocytes/100 WBC (Bld) 10.4 % High 0-10 [facility] Neutrophil percentageOrdered By: Renard Burgos on 09-30-2024 Neutrophils/100 WBC (Bld) 56.3 % 47-70 [facility] Nucleated red blood cell per centageOrdered By: Renard Burgos on 09-30-2024 Nucleated RBC/100 WBC (Bld) [Ratio] 0 % 0-5 [facility] Platelet countOrdered By: Garrick Bhatt on 09-30-2024 Platelets (Bld) [#/Vol] 208 10*3/uL 150-450 [facility] RBC Auto (Bld) [#/Vol]Ordere d By: Renard Burgos on 09-30-2024 RBC (Bld) [#/Vol] 5.15 10*6/uL 4.6-6.2 [facility] White blood cell (WBC) count Ordered By: Renard Burgos on 09-30-2024 WBC (Bld) [#/Vol] 9.9 10*3/uL 4.4-11.0 [facility] Absolute lymphocyte countOrd ered By: Renard Burgos on 09-24-2024 Lymphocytes Auto (Unsp spec) [#/Vol] 1.97 10*3/uL 0.83-4.51 [facility] Absolute neutrophil countOrd ered By: Renard Burgos on 09-24-2024 Neutrophils (Bld) [#/Vol] 6.8 10*3/uL 2.0-7.7 [facility] Automated blood erythrocyte countOrdered By: Renard Burgos on 09-24-2024 RBC (Bld) [#/Vol] 4.48 10*6/uL Low 4.6-6.2 [facility] Comment on above: Order Comment: 109 Performed By: #### L 100.0100 ####[facility] [address] [place], [place], [id number] Automated blood hematocrit ( percentage)Ordered By: Renard Burgos on 09-24-2024 Hematocrit (Bld) [Volume fraction] 40.4 % Normal 40-54 [facility] Comment on above: Order Comment: 109 Performed By: #### L 100.0100 ####[facility] [address] [place], [place], [id number] Automated lymphocyte count a s percentage of total leukocytesOrdered By: Renard Burgos on 09-24-2024 Lymphocytes/100 WBC Auto (Unsp spec) 20.5 % 19-41 [facility] Basophil percentageOrdered B y: Renard Burgos on 09-24-2024 Basophils/100 WBC (Bld) 0.5 % Normal 0-1 [facility] Comment on above: Order Comment: 109 Performed By: #### L 100.0100 ####[facility] [address] [place], [place], [id number] CBC W/Diff, Automatedon 08-30 Absolute Lymph 1.97 X10 3/uL Normal 0.83-4.51 [facility] Comment on above: Order Comment: 109 Performed By: #### L 100.0100 ####[facility] [address] [place], [address] Absolute Neut 6.8 X10 3/uL Normal 2.0-7.7 [facility] Comment on above: Order Comment: 109 Performed By: #### L 100.0100 ####[facility] [address] [place], [address] IG% 0.300 Normal 0.0-0.9 [facility] Comment on above: Order Comment: 109 Result Comment: IG% - Immature Granulocytes (promyelocytes, myelocytes andmetamyelocytes) > 1% indicates that a LEFT SHIFT is Present. Performed By: #### L 100.0100 ####[facility] [address] [place], [address] Lymphocytes/100 WBC (Bld) 20.5 % Normal 19-41 [facility] Comment on above: Order Comment: 109 Performed By: #### L 100.0100 ####[facility] [address] [place], [address] Nucleated RBC (Bld) [#/Vol] 0 10*3/uL Normal 0-5 [facility] Comment on above: Order Comment: 109 Performed By: #### L 100.0100 ####[facility] [address] [place], [address] RDW SD 42.9 fl Normal 35.1-43.9 [facility] Comment on above: Order Comment: 109 Performed By: #### L 100.0100 ####[facility] [address] [place], [address] Eosinophil percentageOrdered By: Renard Burgos on 09-24-2024 Eosinophils/100 WBC (Bld) 0.5 % Normal 0-5 [facility] Comment on above: Order Comment: 109 Performed By: #### L 100.0100 ####[facility] [address] [place], [address] Erythrocyte distribution wid th ratioOrdered By: Renard Burgos on 09-24-2024 Erythrocyte distribution width (RBC) [Ratio] 13.1 % Normal 11.6-14.6 [facility] Comment on above: Order Comment: 109 Performed By: #### L 100.0100 ####[facility] [address] [place], [address] Erythrocyte distribution wid th standard deviationOrdered By: Renard Burgos on 09-24-2024 Erythrocyte distribution width (RBC) [Ratio] 42.9 fl 35.1-43.9 [facility] Hemoglobin measurementOrdere d By: Renard Burgos on 09-24-2024 Hemoglobin (Bld) [Mass/Vol] 13.4 g/dL Normal 13.0-16.5 [facility] Comment on above: Order Comment: 109 Performed By: #### L 100.0100 ####[facility] [address] [place], [place], [phone] Immature granulocytes/100 WB C Auto (Bld)Ordered By: Renard Burgos on 09-24-2024 Immature granulocytes/100 WBC (Bld) 0.300 % 0.0-0.9 [facility] Comment on above: IG% - Immature Granu locytes (promyelocytes, myelocytes and metamyelocytes) > 1% indicates that a LEFT SHIFT is Present. MCV (mean corpuscular volume ) determinationOrdered By: Renard Burgos on 09-24-2024 MCV (RBC) [Entitic vol] 90.2 fL Normal 80-94 [facility] Comment on above: Order Comment: 109 Performed By: #### L 100.0100 ####[facility] [address] [place], [place], [phone] Mean corpuscular hemoglobin (MCH) determinationOrdered By: Renard Burgos on 09-24-2024 MCH (RBC) [Entitic mass] 29.9 pg Normal 27.0-32.0 [facility] Comment on above: Order Comment: 109 Performed By: #### L 100.0100 ####[facility] [address] [place], [place], [phone] Mean corpuscular hemoglobin concentration (MCHC) determinationOrdered By: Renard Burgos on 09-24-2024 MCHC (RBC) [Mass/Vol] 33.2 g/dL Normal 32-36 [facility] Comment on above: Order Comment: 109 Performed By: #### L 100.0100 ####[facility] [address] [place], [address] Mean platelet volume determi nationOrdered By: Renard Burgos on 09-24-2024 Platelet mean volume (Bld) [Entitic vol] 11.3 fL Normal 6.2-12.0 [facility] Comment on above: Order Comment: 109 Performed By: #### L 100.0100 ####[facility] [address] [place], [address] Monocyte percentageOrdered B y: Renard Burgos on 09-24-2024 Monocytes/100 WBC (Bld) 7.2 % Normal 0-10 [facility] Comment on above: Order Comment: 109 Performed By: #### L 100.0100 ####[facility] [address] [place], [address] Neutrophil percentageOrdered By: Renard Burgos on 09-24-2024 Neutrophils/100 WBC (Bld) 71.0 % High 47-70 [facility] Comment on above: Order Comment: 109 Performed By: #### L 100.0100 ####[facility] [address] [place], [address] Nucleated red blood cell per centageOrdered By: Renard Burgos on 09-24-2024 Nucleated RBC/100 WBC (Bld) [Ratio] 0 % 0-5 [facility] Platelet countOrdered By: Garrick Bhatt on 09-24-2024 Platelets (Bld) [#/Vol] 187 10*3/uL Normal 150-450 [facility] Comment on above: Order Comment: 109 Performed By: #### L 100.0100 ####[facility] [address] [place], [address] White blood cell (WBC) count Ordered By: Renard Burgos on 09-24-2024 WBC (Bld) [#/Vol] 9.6 10*3/uL Normal 4.4-11.0 [facility] Comment on above: Order Comment: 109 Performed By: #### L 100.0100 ####[facility] [address] [place], [address] Absolute lymphocyte countOrd ered By: Renard Burgos on 09-16-2024 Lymphocytes Auto (Unsp spec) [#/Vol] 2.44 10*3/uL 0.83-4.51 [facility] Absolute neutrophil countOrd ered By: Renard Burgos on 09-16-2024 Neutrophils (Bld) [#/Vol] 5.5 10*3/uL 2.0-7.7 [facility] Automated lymphocyte count a s percentage of total leukocytesOrdered By: Renard Burgos on 09-16-2024 Lymphocytes/100 WBC Auto (Unsp spec) 27.7 % - [facility] Basophil percentageOrdered B y: Renard Burgos on 09-16-2024 Basophils/100 WBC (Bld) 0.8 % 0-1 [facility] CBC W/Diff, Automatedon 08-29 Absolute Lymph 2.44 X10 3/uL Normal 0.83-4.51 [facility] Comment on above: Order Comment: 109.1 Performed By: #### L 100.0100 ####[facility] [address] [place], [address] Absolute Neut 5.5 X10 3/uL Normal 2.0-7.7 [facility] Comment on above: Order Comment: 109.1 Performed By: #### L 100.0100 ####[facility] [address] [place], [address] Basophils/100 WBC (Bld) 0.8 % Normal 0-1 [facility] Comment on above: Order Comment: 109.1 Performed By: #### L 100.0100 ####[facility] [address] [place], [address] Eosinophils/100 WBC (Bld) 0.7 % Normal 0-5 [facility] Comment on above: Order Comment: 109.1 Performed By: #### L 100.0100 ####[facility] [address] [place], [address] Erythrocyte distribution width (RBC) [Ratio] 13.1 % Normal 11.6-14.6 [facility] Comment on above: Order Comment: 109.1 Performed By: #### L 100.0100 ####[facility] [address] [place], [address] Hematocrit (Bld) [Volume fraction] 46.8 % Normal 40-54 [facility] Comment on above: Order Comment: 109.1 Performed By: #### L 100.0100 ####[facility] [address] [place], [address] Hemoglobin (Bld) [Mass/Vol] 15.4 g/dL Normal 13.0-16.5 [facility] Comment on above: Order Comment: 109.1 Performed By: #### L 100.0100 ####[facility] [address] [place], [address] IG% 0.200 Normal 0.0-0.9 [facility] Comment on above: Order Comment: 109.1 Result Comment: IG% - Immature Granulocytes (promyelocytes, myelocytes andmetamyelocytes) > 1% indicates that a LEFT SHIFT is Present. Performed By: #### L 100.0100 ####[facility] [address] [place], [address] Lymphocytes/100 WBC (Bld) 27.7 % Normal 19-41 [facility] Comment on above: Order Comment: 109.1 Performed By: #### L 100.0100 ####[facility] [address] [place], [address] MCH (RBC) [Entitic mass] 30.1 pg Normal 27.0-32.0 [facility] Comment on above: Order Comment: 109.1 Performed By: #### L 100.0100 ####[facility] [address] [place], [address] MCHC (RBC) [Mass/Vol] 32.9 g/dL Normal 32-36 [facility] Comment on above: Order Comment: 109.1 Performed By: #### L 100.0100 ####[facility] [address] [place], [address] MCV (RBC) [Entitic vol] 91.4 fL Normal 80-94 [facility] Comment on above: Order Comment: 109.1 Performed By: #### L 100.0100 ####[facility] [address] [place], [address] Monocytes/100 WBC (Bld) 8.5 % Normal 0-10 [facility] Comment on above: Order Comment: 109.1 Performed By: #### L 100.0100 ####[facility] [address] [place], [address] Neutrophils/100 WBC (Bld) 62.1 % Normal 47-70 [facility] Comment on above: Order Comment: 109.1 Performed By: #### L 100.0100 ####[facility] [address] [place], [address] Nucleated RBC (Bld) [#/Vol] 0 10*3/uL Normal 0-5 [facility] Comment on above: Order Comment: 109.1 Performed By: #### L 100.0100 ####[facility] [address] [place], [address] Platelet mean volume (Bld) [Entitic vol] 10.6 fL Normal 6.2-12.0 [facility] Comment on above: Order Comment: 109.1 Performed By: #### L 100.0100 ####[facility] [address] [place], [address] Platelets (Bld) [#/Vol] 190 10*3/uL Normal 150-450 [facility] Comment on above: Order Comment: 109.1 Performed By: #### L 100.0100 ####[facility] [address] [place], [address] RBC (Bld) [#/Vol] 5.12 10*6/uL Normal 4.6-6.2 [facility] Comment on above: Order Comment: 109.1 Performed By: #### L 100.0100 ####[facility] [address] [place], [address] RDW SD 43.3 fl Normal 35.1-43.9 [facility] Comment on above: Order Comment: 109.1 Performed By: #### L 100.0100 ####[facility] [address] [place], [address] WBC (Bld) [#/Vol] 8.8 10*3/uL Normal 4.4-11.0 [facility] Comment on above: Order Comment: 109.1 Performed By: #### L 100.0100 ####[facility] [address] [place], [address] Eosinophil percentageOrdered By: Renard Burgos on 09-16-2024 Eosinophils/100 WBC (Bld) 0.7 % 0-5 [facility] Erythrocyte distribution wid th ratioOrdered By: Renard Burgos on 09-16-2024 Erythrocyte distribution width (RBC) [Ratio] 13.1 % 11.6-14.6 [facility] Erythrocyte distribution wid th standard deviationOrdered By: Renard Burgos on 09-16-2024 Erythrocyte distribution width (RBC) [Ratio] 43.3 fl 35.1-43.9 [facility] Hematocrit Auto (Bld) [Volum e fraction]Ordered By: Renard Burgos on 09-16-2024 Hematocrit (Bld) [Volume fraction] 46.8 % 40-54 [facility] Hemoglobin measurementOrdere d By: Renard Burgos on 09-16-2024 Hemoglobin (Bld) [Mass/Vol] 15.4 g/dL 13.0-16.5 [facility] Immature granulocytes/100 WB C Auto (Bld)Ordered By: Renard Burgos on 09-16-2024 Immature granulocytes/100 WBC (Bld) 0.200 % 0.0-0.9 [facility] Comment on above: IG% - Immature Granu locytes (promyelocytes, myelocytes and metamyelocytes) > 1% indicates that a LEFT SHIFT is Present. MCV (mean corpuscular volume ) determinationOrdered By: Renard Burgos on 09-16-2024 MCV (RBC) [Entitic vol] 91.4 fL 80-94 [facility] Mean corpuscular hemoglobin (MCH) determinationOrdered By: Reanrd Burgos on 09-16-2024 MCH (RBC) [Entitic mass] 30.1 pg 27.0-32.0 [facility] Mean corpuscular hemoglobin concentration (MCHC) determinationOrdered By: Renard Burgos on 09-16-2024 MCHC (RBC) [Mass/Vol] 32.9 g/dL 32-36 [facility] Mean platelet volume determi nationOrdered By: Renard Burgos on 09-16-2024 Platelet mean volume (Bld) [Entitic vol] 10.6 fL 6.2-12.0 [facility] Monocyte percentageOrdered B y: Renard Burgos on 09-16-2024 Monocytes/100 WBC (Bld) 8.5 % 0-10 [facility] Neutrophil percentageOrdered By: Renard Burgos on 09-16-2024 Neutrophils/100 WBC (Bld) 62.1 % 47-70 [facility] Nucleated red blood cell per centageOrdered By: Renard Burgos on 09-16-2024 Nucleated RBC/100 WBC (Bld) [Ratio] 0 % 0-5 [facility] Platelet countOrdered By: Garrick Bhatt on 09-16-2024 Platelets (Bld) [#/Vol] 190 10*3/uL 150-450 [facility] RBC Auto (Bld) [#/Vol]Ordere d By: Renard Burgos on 09-16-2024 RBC (Bld) [#/Vol] 5.12 10*6/uL 4.6-6.2 [facility] White blood cell (WBC) count Ordered By: Renard Burgos on 09-16-2024 WBC (Bld) [#/Vol] 8.8 10*3/uL 4.4-11.0 [facility] Anion gap in Serum or Plasma Ordered By: Renard Burgos on 09-11-2024 Anion gap [Moles/Vol] 11 mmol/L 5-15 [facility] Automated blood erythrocyte countOrdered By: Renard Burgos on 09-11-2024 RBC (Bld) [#/Vol] 4.67 10*6/uL Normal 4.6-6.2 [facility] Comment on above: Order Comment: 109-1 Performed By: #### L 100.0500, L500.2500 ####[facility] [address] [place], [address] Automated blood hematocrit ( percentage)Ordered By: Renard Burgos on 09-11-2024 Hematocrit (Bld) [Volume fraction] 42.7 % Normal 40-54 [facility] Comment on above: Order Comment: 109-1 Performed By: #### L 100.0500, L500.2500 ####[facility] [address] [place], [address] BUN/creatinine ratioOrdered By: Renard Burgos on 09-11-2024 Urea nitrogen/Creatinine [Mass ratio] 23.0 mg/mg High [facility] Basic Metabolic Profile (BMP )on 09-11-2024 BUN/CRE 23.0 RATIO High [facility] Comment on above: Order Comment: 109-1 Performed By: #### L 100.0500, L500.2500 ####[facility] [address] [place], [address] Calcium [Mass/Vol] 8.7 mg/dL Normal 7.6-11.0 [facility] Comment on above: Order Comment: 109-1 Performed By: #### L 100.0500, L500.2500 ####[facility] [address] [place], [address] Chloride [Moles/Vol] 104 mmol/L Normal 98-108 [facility] Comment on above: Order Comment: 109-1 Performed By: #### L 100.0500, L500.2500 ####[facility] [address] [place], [address] CO2 [Moles/Vol] 25.9 mmol/L Normal 21.0-32.0 [facility] Comment on above: Order Comment: 109-1 Performed By: #### L 100.0500, L500.2500 ####[facility] [address] [place], [address] Creatinine [Mass/Vol] 0.58 mg/dL Low 0.70-1.20 [facility] Comment on above: Order Comment: 109-1 Performed By: #### L 100.0500, L500.2500 ####[facility] [address] [place], [address] GAP 11 Normal 5-15 [facility] Comment on above: Order Comment: 109-1 Performed By: #### L 100.0500, L500.2500 ####[facility] [address] [place], [address] GFR/1.73 sq M.predicted among non-blacks MDRD (S/P/Bld) [Vol rate/Area] 107 mL/min/{1.73_m2} Normal >60 [facility] Comment on above: Order Comment: 109-1 Result Comment: mL/m in/1.73m2 CKD-EPI Creatinine Equation (2020) Performed By: #### L 100.0500, L500.2500 ####[facility] [address] [place], [address] Glucose [Mass/Vol] 113 mg/dL High 70-99 [facility] Comment on above: Order Comment: 109-1 Performed By: #### L 100.0500, L500.2500 ####[facility] [address] [place], [address] Potassium [Moles/Vol] 3.8 mmol/L Normal 3.3-5.1 [facility] Comment on above: Order Comment: 109-1 Performed By: #### L 100.0500, L500.2500 ####[facility] [address] [place], [address] Sodium [Moles/Vol] 141 mmol/L Normal 133-145 [facility] Comment on above: Order Comment: 109-1 Performed By: #### L 100.0500, L500.2500 ####[facility] [address] [place], [address] Urea nitrogen [Mass/Vol] 13 mg/dL Normal 4-19 [facility] Comment on above: Order Comment: 109-1 Performed By: #### L 100.0500, L500.2500 ####[facility] [address] [place], [address] CBC-Complete Blood Cnt No Di ffon 09-11-2024 RDW SD 43.7 fl Normal 35.1-43.9 [facility] Comment on above: Order Comment: 109-1 Performed By: #### L 100.0500, L500.2500 ####[facility] [address] [place], [address] Carbon dioxide, total [Moles /volume] in Central venous bloodOrdered By: Renard Burgos on 09-11-2024 CO2 [Moles/Vol] 25.9 mmol/L 21.0-32.0 [facility] Chloride assayOrdered By: Garrick Bhatt on 09-11-2024 Chloride [Moles/Vol] 104 mmol/L 98-108 [facility] Erythrocyte distribution wid th ratioOrdered By: Renard Burgos on 09-11-2024 Erythrocyte distribution width (RBC) [Ratio] 13.2 % Normal 11.6-14.6 [facility] Comment on above: Order Comment: 109-1 Performed By: #### L 100.0500, L500.2500 ####[facility] [address] [place], [place], [id number] Erythrocyte distribution wid th standard deviationOrdered By: Renard Burgos on 09-11-2024 Erythrocyte distribution width (RBC) [Ratio] 43.7 fl 35.1-43.9 [facility] Glomerular filtration rate ( GFR) estimation/1.73 sq m using serum, plasma, or whole bOrdered By: Renard Burgos on 09-11-2024 GFR/1.73 sq M.predicted among non-blacks MDRD (S/P/Bld) [Vol rate/Area] 107 mL/min/{1.73_m2} >60 [facility] Comment on above: mL/min/1.73m2 CKD-EP I Creatinine Equation (2020) Hemoglobin measurementOrdere d By: Renard Burgos on 09-11-2024 Hemoglobin (Bld) [Mass/Vol] 14.0 g/dL Normal 13.0-16.5 [facility] Comment on above: Order Comment: 109-1 Performed By: #### L 100.0500, L500.2500 ####[facility] [address] [place], [place], [id number] MCV (mean corpuscular volume ) determinationOrdered By: Renard Burgos on 09-11-2024 MCV (RBC) [Entitic vol] 91.4 fL Normal 80-94 [facility] Comment on above: Order Comment: 109-1 Performed By: #### L 100.0500, L500.2500 ####[facility] [address] [place], [address] Mean corpuscular hemoglobin (MCH) determinationOrdered By: Renard Burgos on 09-11-2024 MCH (RBC) [Entitic mass] 30.0 pg Normal 27.0-32.0 [facility] Comment on above: Order Comment: 109-1 Performed By: #### L 100.0500, L500.2500 ####[facility] [address] [place], [address] Mean corpuscular hemoglobin concentration (MCHC) determinationOrdered By: Renard Burgos on 09-11-2024 MCHC (RBC) [Mass/Vol] 32.8 g/dL Normal 32-36 [facility] Comment on above: Order Comment: 109-1 Performed By: #### L 100.0500, L500.2500 ####[facility] [address] [place], [address] Mean platelet volume determi nationOrdered By: Renard Burgos on 09-11-2024 Platelet mean volume (Bld) [Entitic vol] 11.3 fL Normal 6.2-12.0 [facility] Comment on above: Order Comment: 109-1 Performed By: #### L 100.0500, L500.2500 ####[facility] [address] [place], [address] Platelet countOrdered By: Garrick Bhatt on 09-11-2024 Platelets (Bld) [#/Vol] 191 10*3/uL Normal 150-450 [facility] Comment on above: Order Comment: 109-1 Performed By: #### L 100.0500, L500.2500 ####[facility] [address] [place], [address] Potassium measurement (mass/ volume)Ordered By: Renard Burgos on 09-11-2024 Potassium (Unsp spec) [Mass/Vol] 3.8 mmol/L 3.3-5.1 [facility] Serum creatinine measurement (mass/volume)Ordered By: Renard Burgos on 09-11-2024 Creatinine [Mass/Vol] 0.58 mg/dL Low 0.70-1.20 [facility] Serum glucose measurement (m ass/volume)Ordered By: Renard Burgos on 09-11-2024 Glucose [Mass/Vol] 113 mg/dL High 70-99 [facility] Serum or plasma calcium gordy urement (mass/volume)Ordered By: Renard Burgos on 09-11-2024 Calcium [Mass/Vol] 8.7 mg/dL 7.6-11.0 [facility] Serum or plasma urea nitroge n measurement (mass/volume)Ordered By: Renard Burgos on 09-11-2024 Urea nitrogen [Mass/Vol] 13 mg/dL 4-19 [facility] Sodium levelOrdered By: Lamine Burgos on 09-11-2024 Sodium [Moles/Vol] 141 mmol/L 133-145 [facility] White blood cell (WBC) count Ordered By: Renard Burgos on 09-11-2024 WBC (Bld) [#/Vol] 7.6 10*3/uL Normal 4.4-11.0 [facility] Comment on above: Order Comment: 109-1 Performed By: #### L 100.0500, L500.2500 ####[facility] [address] [facility] [facility] [place], [place], [id number] Absolute lymphocyte countOrd ered By: Renard Burgos on 09-09-2024 Lymphocytes Auto (Unsp spec) [#/Vol] 2.24 10*3/uL 0.83-4.51 [facility] Absolute neutrophil countOrd ered By: Renard Burgos on 09-09-2024 Neutrophils (Bld) [#/Vol] 8.7 10*3/uL High 2.0-7.7 [facility] Automated lymphocyte count a s percentage of total leukocytesOrdered By: Renard Burgos on 09-09-2024 Lymphocytes/100 WBC Auto (Unsp spec) 19.1 % 19-41 [facility] Basophil percentageOrdered B y: Renard Burgos on 09-09-2024 Basophils/100 WBC (Bld) 0.4 % 0-1 [facility] CBC W/Diff, Automatedon 08-29 Absolute Lymph 2.24 X10 3/uL Normal 0.83-4.51 [facility] Comment on above: Order Comment: 109-1 Performed By: #### L 100.0100 ####[facility] [address] [place], [place], [id number] Absolute Neut 8.7 X10 3/uL High 2.0-7.7 [facility] Comment on above: Order Comment: 109-1 Performed By: #### L 100.0100 ####[facility] [address] [place], [address] Basophils/100 WBC (Bld) 0.4 % Normal 0-1 [facility] Comment on above: Order Comment: 109-1 Performed By: #### L 100.0100 ####[facility] [address] [place], [address] Eosinophils/100 WBC (Bld) 0.5 % Normal 0-5 [facility] Comment on above: Order Comment: 109-1 Performed By: #### L 100.0100 ####[facility] [address] [place], [address] Erythrocyte distribution width (RBC) [Ratio] 13.0 % Normal 11.6-14.6 [facility] Comment on above: Order Comment: 109-1 Performed By: #### L 100.0100 ####[facility] [address] [place], [address] Hematocrit (Bld) [Volume fraction] 44.7 % Normal 40-54 [facility] Comment on above: Order Comment: 109-1 Performed By: #### L 100.0100 ####[facility] [address] [place], [address] Hemoglobin (Bld) [Mass/Vol] 14.6 g/dL Normal 13.0-16.5 [facility] Comment on above: Order Comment: 109-1 Performed By: #### L 100.0100 ####[facility] [address] [place], [address] IG% 0.300 Normal 0.0-0.9 [facility] Comment on above: Order Comment: 109-1 Result Comment: IG% - Immature Granulocytes (promyelocytes, myelocytes andmetamyelocytes) > 1% indicates that a LEFT SHIFT is Present. Performed By: #### L 100.0100 ####[facility] [address] [place], [address] Lymphocytes/100 WBC (Bld) 19.1 % Normal 19-41 [facility] Comment on above: Order Comment: 109-1 Performed By: #### L 100.0100 ####[facility] [address] [place], [address] MCH (RBC) [Entitic mass] 30.1 pg Normal 27.0-32.0 [facility] Comment on above: Order Comment: 109-1 Performed By: #### L 100.0100 ####[facility] [address] [place], [address] MCHC (RBC) [Mass/Vol] 32.7 g/dL Normal 32-36 [facility] Comment on above: Order Comment: 109-1 Performed By: #### L 100.0100 ####[facility] [address] [place], [address] MCV (RBC) [Entitic vol] 92.2 fL Normal 80-94 [facility] Comment on above: Order Comment: 109-1 Performed By: #### L 100.0100 ####[facility] [address] [place], [address] Monocytes/100 WBC (Bld) 5.1 % Normal 0-10 [facility] Comment on above: Order Comment: 109-1 Performed By: #### L 100.0100 ####[facility] [address] [place], [address] Neutrophils/100 WBC (Bld) 74.6 % High 47-70 [facility] Comment on above: Order Comment: 109-1 Performed By: #### L 100.0100 ####[facility] [address] [place], [address] Nucleated RBC (Bld) [#/Vol] 0 10*3/uL Normal 0-5 [facility] Comment on above: Order Comment: 109-1 Performed By: #### L 100.0100 ####[facility] [address] [place], [address] Platelet mean volume (Bld) [Entitic vol] 11.6 fL Normal 6.2-12.0 [facility] Comment on above: Order Comment: 109-1 Performed By: #### L 100.0100 ####[facility] [address] [place], [address] Platelets (Bld) [#/Vol] 189 10*3/uL Normal 150-450 [facility] Comment on above: Order Comment: 109-1 Performed By: #### L 100.0100 ####[facility] [address] [place], [address] RBC (Bld) [#/Vol] 4.85 10*6/uL Normal 4.6-6.2 [facility] Comment on above: Order Comment: 109-1 Performed By: #### L 100.0100 ####[facility] [address] [place], [address] RDW SD 43.8 fl Normal 35.1-43.9 [facility] Comment on above: Order Comment: 109-1 Performed By: #### L 100.0100 ####[facility] [address] [place], [address] WBC (Bld) [#/Vol] 11.7 10*3/uL High 4.4-11.0 [facility] Comment on above: Order Comment: 109-1 Performed By: #### L 100.0100 ####[facility] [address] [place], [address] Eosinophil percentageOrdered By: Renard Burgos on 09-09-2024 Eosinophils/100 WBC (Bld) 0.5 % 0-5 [facility] Erythrocyte distribution wid th ratioOrdered By: Renard Burgos on 09-09-2024 Erythrocyte distribution width (RBC) [Ratio] 13.0 % 11.6-14.6 [facility] Erythrocyte distribution wid th standard deviationOrdered By: Renard Burgos on 09-09-2024 Erythrocyte distribution width (RBC) [Ratio] 43.8 fl 35.1-43.9 [facility] Hematocrit Auto (Bld) [Volum e fraction]Ordered By: Renard Burgos on 09-09-2024 Hematocrit (Bld) [Volume fraction] 44.7 % 40-54 [facility] Hemoglobin measurementOrdere d By: Renard Burgos on 09-09-2024 Hemoglobin (Bld) [Mass/Vol] 14.6 g/dL 13.0-16.5 [facility] Immature granulocytes/100 WB C Auto (Bld)Ordered By: Renard Burgos on 09-09-2024 Immature granulocytes/100 WBC (Bld) 0.300 % 0.0-0.9 [facility] Comment on above: IG% - Immature Granu locytes (promyelocytes, myelocytes and metamyelocytes) > 1% indicates that a LEFT SHIFT is Present. MCV (mean corpuscular volume ) determinationOrdered By: Renard Burgos on 09-09-2024 MCV (RBC) [Entitic vol] 92.2 fL 80-94 [facility] Mean corpuscular hemoglobin (MCH) determinationOrdered By: Renard Burgos on 09-09-2024 MCH (RBC) [Entitic mass] 30.1 pg 27.0-32.0 [facility] Mean corpuscular hemoglobin concentration (MCHC) determinationOrdered By: Renard Burgos on 09-09-2024 MCHC (RBC) [Mass/Vol] 32.7 g/dL 32-36 [facility] Mean platelet volume determi nationOrdered By: Renard Burgos on 09-09-2024 Platelet mean volume (Bld) [Entitic vol] 11.6 fL 6.2-12.0 [facility] Monocyte percentageOrdered B y: Renard Burgos on 09-09-2024 Monocytes/100 WBC (Bld) 5.1 % 0-10 [facility] Neutrophil percentageOrdered By: Renard Burgos on 09-09-2024 Neutrophils/100 WBC (Bld) 74.6 % High 47-70 [facility] Nucleated red blood cell per centageOrdered By: Renard Burgos on 09-09-2024 Nucleated RBC/100 WBC (Bld) [Ratio] 0 % 0-5 [facility] Platelet countOrdered By: Garrick Bhatt on 09-09-2024 Platelets (Bld) [#/Vol] 189 10*3/uL 150-450 [facility] RBC Auto (Bld) [#/Vol]Ordere d By: Renard Burgos on 09-09-2024 RBC (Bld) [#/Vol] 4.85 10*6/uL 4.6-6.2 [facility] White blood cell (WBC) count Ordered By: Renard Burgos on 09-09-2024 WBC (Bld) [#/Vol] 11.7 10*3/uL High 4.4-11.0 [facility] Absolute lymphocyte countOrd ered By: Renard Burgos on 09-02-2024 Lymphocytes Auto (Unsp spec) [#/Vol] 2.07 10*3/uL 0.83-4.51 [facility] Absolute neutrophil countOrd ered By: Renard Burgos on 09-02-2024 Neutrophils (Bld) [#/Vol] 5.8 10*3/uL 2.0-7.7 [facility] Automated lymphocyte count a s percentage of total leukocytesOrdered By: Renard Burgos on 09-02-2024 Lymphocytes/100 WBC Auto (Unsp spec) 24.4 % 19-41 [facility] Basophil percentageOrdered B y: Renard Burgos on 09-02-2024 Basophils/100 WBC (Bld) 0.6 % 0-1 [facility] CBC W/Diff, Automatedon Absolute Lymph 2.07 X10 3/uL Normal 0.83-4.51 [facility] Comment on above: Order Comment: 109 Performed By: #### L 100.0100 ####[facility] [address] [place], [address] Absolute Neut 5.8 X10 3/uL Normal 2.0-7.7 [facility] Comment on above: Order Comment: 109 Performed By: #### L 100.0100 ####[facility] [address] [place], [address] Basophils/100 WBC (Bld) 0.6 % Normal 0-1 [facility] Comment on above: Order Comment: 109 Performed By: #### L 100.0100 ####[facility] [address] [place], [address] Eosinophils/100 WBC (Bld) 0.7 % Normal 0-5 [facility] Comment on above: Order Comment: 109 Performed By: #### L 100.0100 ####[facility] [address] [place], [address] Erythrocyte distribution width (RBC) [Ratio] 12.8 % Normal 11.6-14.6 [facility] Comment on above: Order Comment: 109 Performed By: #### L 100.0100 ####[facility] [address] [place], [address] Hematocrit (Bld) [Volume fraction] 44.5 % Normal 40-54 [facility] Comment on above: Order Comment: 109 Performed By: #### L 100.0100 ####[facility] [address] [place], [address] Hemoglobin (Bld) [Mass/Vol] 14.9 g/dL Normal 13.0-16.5 [facility] Comment on above: Order Comment: 109 Performed By: #### L 100.0100 ####[facility] [address] [place], [address] IG% 0.400 Normal 0.0-0.9 [facility] Comment on above: Order Comment: 109 Result Comment: IG% - Immature Granulocytes (promyelocytes, myelocytes andmetamyelocytes) > 1% indicates that a LEFT SHIFT is Present. Performed By: #### L 100.0100 ####[facility] [address] [place], [address] Lymphocytes/100 WBC (Bld) 24.4 % Normal 19-41 [facility] Comment on above: Order Comment: 109 Performed By: #### L 100.0100 ####[facility] [address] [place], [address] MCH (RBC) [Entitic mass] 29.9 pg Normal 27.0-32.0 [facility] Comment on above: Order Comment: 109 Performed By: #### L 100.0100 ####[facility] [address] [place], [address] MCHC (RBC) [Mass/Vol] 33.5 g/dL Normal 32-36 [facility] Comment on above: Order Comment: 109 Performed By: #### L 100.0100 ####[facility] [address] [place], [address] MCV (RBC) [Entitic vol] 89.4 fL Normal 80-94 [facility] Comment on above: Order Comment: 109 Performed By: #### L 100.0100 ####[facility] [address] [place], [address] Monocytes/100 WBC (Bld) 5.4 % Normal 0-10 [facility] Comment on above: Order Comment: 109 Performed By: #### L 100.0100 ####[facility] [address] [place], [address] Neutrophils/100 WBC (Bld) 68.5 % Normal 47-70 [facility] Comment on above: Order Comment: 109 Performed By: #### L 100.0100 ####[facility] [address] [place], [address] Nucleated RBC (Bld) [#/Vol] 0 10*3/uL Normal 0-5 [facility] Comment on above: Order Comment: 109 Performed By: #### L 100.0100 ####[facility] [address] [place], [address] Platelet mean volume (Bld) [Entitic vol] 10.7 fL Normal 6.2-12.0 [facility] Comment on above: Order Comment: 109 Performed By: #### L 100.0100 ####[facility] [address] [place], [address] Platelets (Bld) [#/Vol] 189 10*3/uL Normal 150-450 [facility] Comment on above: Order Comment: 109 Performed By: #### L 100.0100 ####[facility] [address] [place], [address] RBC (Bld) [#/Vol] 4.98 10*6/uL Normal 4.6-6.2 [facility] Comment on above: Order Comment: 109 Performed By: #### L 100.0100 ####[facility] [address] [place], [address] RDW SD 41.7 fl Normal 35.1-43.9 [facility] Comment on above: Order Comment: 109 Performed By: #### L 100.0100 ####[facility] [address] [place], [address] WBC (Bld) [#/Vol] 8.5 10*3/uL Normal 4.4-11.0 [facility] Comment on above: Order Comment: 109 Performed By: #### L 100.0100 ####[facility] [address] [place], [address] Eosinophil percentageOrdered By: Renard Burgos on 09-02-2024 Eosinophils/100 WBC (Bld) 0.7 % 0-5 [facility] Erythrocyte distribution wid th ratioOrdered By: Renard Burgos on 09-02-2024 Erythrocyte distribution width (RBC) [Ratio] 12.8 % 11.6-14.6 [facility] Erythrocyte distribution wid th standard deviationOrdered By: Renard Burgos on 09-02-2024 Erythrocyte distribution width (RBC) [Ratio] 41.7 fl 35.1-43.9 [facility] Hematocrit Auto (Bld) [Volum e fraction]Ordered By: Renard Burgos on 09-02-2024 Hematocrit (Bld) [Volume fraction] 44.5 % 40-54 [facility] Hemoglobin measurementOrdere d By: Renard Burgos on 09-02-2024 Hemoglobin (Bld) [Mass/Vol] 14.9 g/dL 13.0-16.5 [facility] Immature granulocytes/100 WB C Auto (Bld)Ordered By: Renard Burgos on 09-02-2024 Immature granulocytes/100 WBC (Bld) 0.400 % 0.0-0.9 [facility] Comment on above: IG% - Immature Granu locytes (promyelocytes, myelocytes and metamyelocytes) > 1% indicates that a LEFT SHIFT is Present. MCV (mean corpuscular volume ) determinationOrdered By: Renard Burgos on 09-02-2024 MCV (RBC) [Entitic vol] 89.4 fL 80-94 [facility] Mean corpuscular hemoglobin (MCH) determinationOrdered By: Renard Burgos on 09-02-2024 MCH (RBC) [Entitic mass] 29.9 pg 27.0-32.0 [facility] Mean corpuscular hemoglobin concentration (MCHC) determinationOrdered By: Renard Burgos on 09-02-2024 MCHC (RBC) [Mass/Vol] 33.5 g/dL 32-36 [facility] Mean platelet volume determi nationOrdered By: Renard Burgos on 09-02-2024 Platelet mean volume (Bld) [Entitic vol] 10.7 fL 6.2-12.0 [facility] Monocyte percentageOrdered B y: Renard Burgos on 09-02-2024 Monocytes/100 WBC (Bld) 5.4 % 0-10 [facility] Neutrophil percentageOrdered By: Renard Burgos on 09-02-2024 Neutrophils/100 WBC (Bld) 68.5 % 47-70 [facility] Nucleated red blood cell per centageOrdered By: Renard Burgos on 09-02-2024 Nucleated RBC/100 WBC (Bld) [Ratio] 0 % 0-5 [facility] Platelet countOrdered By: Garrick Bhatt on 09-02-2024 Platelets (Bld) [#/Vol] 189 10*3/uL 150-450 [facility] RBC Auto (Bld) [#/Vol]Ordere d By: Renard Burgos on 09-02-2024 RBC (Bld) [#/Vol] 4.98 10*6/uL 4.6-6.2 [facility] White blood cell (WBC) count Ordered By: Renard Burgos on 09-02-2024 WBC (Bld) [#/Vol] 8.5 10*3/uL 4.4-11.0 [facility] Absolute lymphocyte countOrd ered By: Renard Burgos on 08-26-2024 Lymphocytes Auto (Unsp spec) [#/Vol] 2.17 10*3/uL 0.83-4.51 [facility] Absolute neutrophil countOrd ered By: Renard Burgos on 08-26-2024 Neutrophils (Bld) [#/Vol] 5.7 10*3/uL 2.0-7.7 [facility] Automated lymphocyte count a s percentage of total leukocytesOrdered By: Renard Burgos on 08-26-2024 Lymphocytes/100 WBC Auto (Unsp spec) 25.1 % 19-41 [facility] Basophil percentageOrdered B y: Renard Burgos on 08-26-2024 Basophils/100 WBC (Bld) 0.6 % 0-1 [facility] CBC W/Diff, Automatedon 07-31 Absolute Lymph 2.17 X10 3/uL Normal 0.83-4.51 [facility] Comment on above: Order Comment: 109-1 Performed By: #### L 100.0100 ####[facility] [address] [place], [address] Absolute Neut 5.7 X10 3/uL Normal 2.0-7.7 [facility] Comment on above: Order Comment: 109-1 Performed By: #### L 100.0100 ####[facility] [address] [place], [address] Basophils/100 WBC (Bld) 0.6 % Normal 0-1 [facility] Comment on above: Order Comment: 109-1 Performed By: #### L 100.0100 ####[facility] [address] [place], [address] Eosinophils/100 WBC (Bld) 0.8 % Normal 0-5 [facility] Comment on above: Order Comment: 109-1 Performed By: #### L 100.0100 ####[facility] [address] [place], [address] Erythrocyte distribution width (RBC) [Ratio] 12.7 % Normal 11.6-14.6 [facility] Comment on above: Order Comment: 109-1 Performed By: #### L 100.0100 ####[facility] [address] [place], [address] Hematocrit (Bld) [Volume fraction] 41.8 % Normal 40-54 [facility] Comment on above: Order Comment: 109-1 Performed By: #### L 100.0100 ####[facility] [address] [place], [address] Hemoglobin (Bld) [Mass/Vol] 13.8 g/dL Normal 13.0-16.5 [facility] Comment on above: Order Comment: 109-1 Performed By: #### L 100.0100 ####[facility] [address] [place], [address] IG% 0.200 Normal 0.0-0.9 [facility] Comment on above: Order Comment: 109-1 Result Comment: IG% - Immature Granulocytes (promyelocytes, myelocytes andmetamyelocytes) > 1% indicates that a LEFT SHIFT is Present. Performed By: #### L 100.0100 ####[facility] [address] [place], [address] Lymphocytes/100 WBC (Bld) 25.1 % Normal 19-41 [facility] Comment on above: Order Comment: 109-1 Performed By: #### L 100.0100 ####[facility] [address] [place], [address] MCH (RBC) [Entitic mass] 29.7 pg Normal 27.0-32.0 [facility] Comment on above: Order Comment: 109-1 Performed By: #### L 100.0100 ####[facility] [address] [place], [address] MCHC (RBC) [Mass/Vol] 33.0 g/dL Normal 32-36 [facility] Comment on above: Order Comment: 109-1 Performed By: #### L 100.0100 ####[facility] [address] [place], [address] MCV (RBC) [Entitic vol] 90.1 fL Normal 80-94 [facility] Comment on above: Order Comment: 109-1 Performed By: #### L 100.0100 ####[facility] [address] [place], [address] Monocytes/100 WBC (Bld) 7.4 % Normal 0-10 [facility] Comment on above: Order Comment: 109-1 Performed By: #### L 100.0100 ####[facility] [address] [place], [address] Neutrophils/100 WBC (Bld) 65.9 % Normal 47-70 [facility] Comment on above: Order Comment: 109-1 Performed By: #### L 100.0100 ####[facility] [address] [place], [address] Nucleated RBC (Bld) [#/Vol] 0 10*3/uL Normal 0-5 [facility] Comment on above: Order Comment: 109-1 Performed By: #### L 100.0100 ####[facility] [address] [place], [address] Platelet mean volume (Bld) [Entitic vol] 11.3 fL Normal 6.2-12.0 [facility] Comment on above: Order Comment: 109-1 Performed By: #### L 100.0100 ####[facility] [address] [place], [address] Platelets (Bld) [#/Vol] 196 10*3/uL Normal 150-450 [facility] Comment on above: Order Comment: 109-1 Performed By: #### L 100.0100 ####[facility] [address] [place], [address] RBC (Bld) [#/Vol] 4.64 10*6/uL Normal 4.6-6.2 [facility] Comment on above: Order Comment: 109-1 Performed By: #### L 100.0100 ####[facility] [address] [place], [address] RDW SD 41.3 fl Normal 35.1-43.9 [facility] Comment on above: Order Comment: 109-1 Performed By: #### L 100.0100 ####[facility] [address] [place], [address] WBC (Bld) [#/Vol] 8.6 10*3/uL Normal 4.4-11.0 [facility] Comment on above: Order Comment: 109-1 Performed By: #### L 100.0100 ####[facility] [address] [place], [address] Eosinophil percentageOrdered By: Renard Burgos on 08-26-2024 Eosinophils/100 WBC (Bld) 0.8 % 0-5 [facility] Erythrocyte distribution wid th ratioOrdered By: Renard Burgos on 08-26-2024 Erythrocyte distribution width (RBC) [Ratio] 12.7 % 11.6-14.6 [facility] Erythrocyte distribution wid th standard deviationOrdered By: Renard Burgos on 08-26-2024 Erythrocyte distribution width (RBC) [Ratio] 41.3 fl 35.1-43.9 [facility] Hematocrit Auto (Bld) [Volum e fraction]Ordered By: Renard Burgos on 08-26-2024 Hematocrit (Bld) [Volume fraction] 41.8 % 40-54 [facility] Hemoglobin measurementOrdere d By: Renard Burgos on 08-26-2024 Hemoglobin (Bld) [Mass/Vol] 13.8 g/dL 13.0-16.5 [facility] Immature granulocytes/100 WB C Auto (Bld)Ordered By: Renard Burgos on 08-26-2024 Immature granulocytes/100 WBC (Bld) 0.200 % 0.0-0.9 [facility] Comment on above: IG% - Immature Granu locytes (promyelocytes, myelocytes and metamyelocytes) > 1% indicates that a LEFT SHIFT is Present. MCV (mean corpuscular volume ) determinationOrdered By: Renard Burgos on 08-26-2024 MCV (RBC) [Entitic vol] 90.1 fL 80-94 [facility] Mean corpuscular hemoglobin (MCH) determinationOrdered By: Renard Burgos on 08-26-2024 MCH (RBC) [Entitic mass] 29.7 pg 27.0-32.0 [facility] Mean corpuscular hemoglobin concentration (MCHC) determinationOrdered By: Renard Burgos on 08-26-2024 MCHC (RBC) [Mass/Vol] 33.0 g/dL 32-36 [facility] Mean platelet volume determi nationOrdered By: Renard Burgos on 08-26-2024 Platelet mean volume (Bld) [Entitic vol] 11.3 fL 6.2-12.0 [facility] Monocyte percentageOrdered B y: Renard Burgos on 08-26-2024 Monocytes/100 WBC (Bld) 7.4 % 0-10 [facility] [facility] Neutrophil percentageOrdered By: Renard Burgos on 08-26-2024 Neutrophils/100 WBC (Bld) 65.9 % 47-70 [facility] Nucleated red blood cell per centageOrdered By: Renard Burgos on 08-26-2024 Nucleated RBC/100 WBC (Bld) [Ratio] 0 % 0-5 [facility] Platelet countOrdered By: Garrick Bhatt on 08-26-2024 Platelets (Bld) [#/Vol] 196 10*3/uL 150-450 [facility] RBC Auto (Bld) [#/Vol]Ordere d By: Renard Burgos on 08-26-2024 RBC (Bld) [#/Vol] 4.64 10*6/uL 4.6-6.2 [facility] White blood cell (WBC) count Ordered By: Renard Burgos on 08-26-2024 WBC (Bld) [#/Vol] 8.6 10*3/uL 4.4-11.0 [facility] Anion gap in Serum or Plasma Ordered By: Renard Burgos on 08-23-2024 Anion gap [Moles/Vol] 10 mmol/L 5-15 [facility] BUN/creatinine ratioOrdered By: Renard Burgos on 08-23-2024 Urea nitrogen/Creatinine [Mass ratio] 21.4 mg/mg High 10-20 [facility] Bilirubin, totalOrdered By: Renard Burgos on 08-23-2024 Bilirubin [Mass/Vol] 0.35 mg/dL 0.00-1.30 [facility] CBC-Complete Blood Cnt No Di ffon 08-23-2024 Erythrocyte distribution width (RBC) [Ratio] 12.7 % Normal 11.6-14.6 [facility] Comment on above: Order Comment: 109.1 Performed By: #### L 500.4050, L500.4100, L100.0500 ####[facility] [address] [place], [address] Hematocrit (Bld) [Volume fraction] 42.2 % Normal 40-54 [facility] Comment on above: Order Comment: 109.1 Performed By: #### L 500.4050, L500.4100, L100.0500 ####[facility] [address] [place], [address] Hemoglobin (Bld) [Mass/Vol] 14.0 g/dL Normal 13.0-16.5 [facility] Comment on above: Order Comment: 109.1 Performed By: #### L 500.4050, L500.4100, L100.0500 ####[facility] [address] [place], [address] MCH (RBC) [Entitic mass] 30.0 pg Normal 27.0-32.0 [facility] Comment on above: Order Comment: 109.1 Performed By: #### L 500.4050, L500.4100, L100.0500 ####[facility] [address] [place], [address] MCHC (RBC) [Mass/Vol] 33.2 g/dL Normal 32-36 [facility] Comment on above: Order Comment: 109.1 Performed By: #### L 500.4050, L500.4100, L100.0500 ####[facility] [address] [place], [address] MCV (RBC) [Entitic vol] 90.6 fL Normal 80-94 [facility] Comment on above: Order Comment: 109.1 Performed By: #### L 500.4050, L500.4100, L100.0500 ####[facility] [address] [place], [address] Platelet mean volume (Bld) [Entitic vol] 11.3 fL Normal 6.2-12.0 [facility] Comment on above: Order Comment: 109.1 Performed By: #### L 500.4050, L500.4100, L100.0500 ####[facility] [address] [place], [address] Platelets (Bld) [#/Vol] 184 10*3/uL Normal 150-450 [facility] Comment on above: Order Comment: 109.1 Performed By: #### L 500.4050, L500.4100, L100.0500 ####[facility] [address] [place], [address] RBC (Bld) [#/Vol] 4.66 10*6/uL Normal 4.6-6.2 [facility] Comment on above: Order Comment: 109.1 Performed By: #### L 500.4050, L500.4100, L100.0500 ####[facility] [address] [place], [address] RDW SD 41.8 fl Normal 35.1-43.9 [facility] Comment on above: Order Comment: 109.1 Performed By: #### L 500.4050, L500.4100, L100.0500 ####[facility] [address] [place], [address] WBC (Bld) [#/Vol] 8.6 10*3/uL Normal 4.4-11.0 [facility] Comment on above: Order Comment: 109.1 Performed By: #### L 500.4050, L500.4100, L100.0500 ####[facility] [address] [place], [address] Calculated very low density lipoprotein (VLDL) cholesterol measurementOrdered By: Renard Burgos on 08-23-2024 Calculated very low density lipoprotein (VLDL) cholesterol measurement 40 mg/dL 5-40 [facility] Carbon dioxide, total [Moles /volume] in Central venous bloodOrdered By: Renard Burgos on 08-23-2024 CO2 [Moles/Vol] 24.9 mmol/L 21.0-32.0 [facility] Chloride assayOrdered By: Garrick hBatt on 08-23-2024 Chloride [Moles/Vol] 106 mmol/L 98-108 [facility] Comprehensive Metabolic Prof ilon 08-23-2024 Albumin [Mass/Vol] 3.4 g/dL Normal 3.4-4.8 [facility] Comment on above: Order Comment: 109.1 Performed By: #### L 500.4050, L500.4100, L100.0500 ####[facility] [address] [place], [address] Albumin/Globulin [Mass ratio] 1.4 {ratio} Normal 0.9-2.4 [facility] Comment on above: Order Comment: 109.1 Performed By: #### L 500.4050, L500.4100, L100.0500 ####[facility] [address] [place], [address] ALK PHOS 101 U/L Normal 40-129 [facility] Comment on above: Order Comment: 109.1 Performed By: #### L 500.4050, L500.4100, L100.0500 ####[facility] [address] [place], [address] ALT [Catalytic activity/Vol] 13 U/L Normal <=46 [facility] Comment on above: Order Comment: 109.1 Performed By: #### L 500.4050, L500.4100, L100.0500 ####[facility] [address] [place], [address] AST [Catalytic activity/Vol] 17 U/L Normal <=37 [facility] Comment on above: Order Comment: 109.1 Performed By: #### L 500.4050, L500.4100, L100.0500 ####[facility] [address] [place], [address] Bilirubin [Mass/Vol] 0.35 mg/dL Normal 0.00-1.30 [facility] Comment on above: Order Comment: 109.1 Performed By: #### L 500.4050, L500.4100, L100.0500 ####[facility] [address] [place], [address] BUN/CRE 21.4 RATIO High 10-20 [facility] Comment on above: Order Comment: 109.1 Performed By: #### L 500.4050, L500.4100, L100.0500 ####[facility] [address] [place], [address] Calcium [Mass/Vol] 8.2 mg/dL Normal 7.6-11.0 [facility] Comment on above: Order Comment: 109.1 Performed By: #### L 500.4050, L500.4100, L100.0500 ####[facility] [address] [place], [address] Chloride [Moles/Vol] 106 mmol/L Normal 98-108 [facility] Comment on above: Order Comment: 109.1 Performed By: #### L 500.4050, L500.4100, L100.0500 ####[facility] [address] [place], [address] CO2 [Moles/Vol] 24.9 mmol/L Normal 21.0-32.0 [facility] Comment on above: Order Comment: 109.1 Performed By: #### L 500.4050, L500.4100, L100.0500 ####[facility] [address] [place], [address] Creatinine [Mass/Vol] 0.63 mg/dL Low 0.70-1.20 [facility] Comment on above: Order Comment: 109.1 Performed By: #### L 500.4050, L500.4100, L100.0500 ####[facility] [address] [place], [address] GAP 10 Normal 5-15 [facility] Comment on above: Order Comment: 109.1 Performed By: #### L 500.4050, L500.4100, L100.0500 ####[facility] [address] [place], [address] GFR/1.73 sq M.predicted among non-blacks MDRD (S/P/Bld) [Vol rate/Area] 104 mL/min/{1.73_m2} Normal >60 [facility] Comment on above: Order Comment: 109.1 Result Comment: mL/m in/1.73m2 CKD-EPI Creatinine Equation (2020) Performed By: #### L 500.4050, L500.4100, L100.0500 ####[facility] [address] [place], [address] Globulin (S) [Mass/Vol] 2.3 g/dL Normal 2.2-4.2 [facility] Comment on above: Order Comment: 109.1 Performed By: #### L 500.4050, L500.4100, L100.0500 ####[facility] [address] [place], [address] Glucose [Mass/Vol] 116 mg/dL High 70-99 [facility] Comment on above: Order Comment: 109.1 Performed By: #### L 500.4050, L500.4100, L100.0500 ####[facility] [address] [place], [address] Potassium [Moles/Vol] 3.8 mmol/L Normal 3.3-5.1 [facility] Comment on above: Order Comment: 109.1 Performed By: #### L 500.4050, L500.4100, L100.0500 ####[facility] [address] [place], [address] Sodium [Moles/Vol] 141 mmol/L Normal 133-145 [facility] Comment on above: Order Comment: 109.1 Performed By: #### L 500.4050, L500.4100, L100.0500 ####[facility] [address] [place], [place], [id number] T PROT 5.7 g/dL Low 5.9-8.4 [facility] Comment on above: Order Comment: 109.1 Performed By: #### L 500.4050, L500.4100, L100.0500 ####[facility] [address] [place], [address] Urea nitrogen [Mass/Vol] 14 mg/dL Normal 4-19 [facility] Comment on above: Order Comment: 109.1 Performed By: #### L 500.4050, L500.4100, L100.0500 ####[facility] [address] [place], [place], [id number] Erythrocyte distribution wid th ratioOrdered By: Renard Burgos on 08-23-2024 Erythrocyte distribution width (RBC) [Ratio] 12.7 % 11.6-14.6 [facility] Erythrocyte distribution wid th standard deviationOrdered By: Renard Burgos on 08-23-2024 Erythrocyte distribution width (RBC) [Ratio] 41.8 fl 35.1-43.9 [facility] Glomerular filtration rate ( GFR) estimation/1.73 sq m using serum, plasma, or whole bOrdered By: Renard Burgos on 08-23-2024 GFR/1.73 sq M.predicted among non-blacks MDRD (S/P/Bld) [Vol rate/Area] 104 mL/min/{1.73_m2} >60 [facility] Comment on above: mL/min/1.73m2 CKD-EP I Creatinine Equation (2020) Hematocrit Auto (Bld) [Volum e fraction]Ordered By: Renard Burgos on 08-23-2024 Hematocrit (Bld) [Volume fraction] 42.2 % 40-54 [facility] Hemoglobin measurementOrdere d By: Renard Burgos on 08-23-2024 Hemoglobin (Bld) [Mass/Vol] 14.0 g/dL 13.0-16.5 [facility] LDL calc ser/plasOrdered By: Renard Burgos on 08-23-2024 Cholesterol in LDL [Mass/Vol] 62 mg/dL [facility] Comment on above: Plcdmdvyyg=008-225 m g/dL & Higher Kgyy=575 mg/dL or greater Laboratory - Chemistry and C hemistry - challengeOrdered By: Renard Burgos on 08-23-2024 AST [Catalytic activity/Vol] 17 U/L <38 [facility] Lipid Profileon 08-23-2024 CHOL:HDL 5.32 Normal [facility] Comment on above: Order Comment: 109.1 Performed By: #### L 500.4050, L500.4100, L100.0500 ####[facility] [address] [place], [address] Cholesterol [Mass/Vol] 125 mg/dL Normal <=200 [facility] Comment on above: Order Comment: 109.1 Result Comment: Chol esterol level, Desirable <200 mg/dLBorderline high cholesterol 200-239 mg/dLHigh cholesterol >=240 mg/dLRecommendations of the NCEP Adult Treatment Panel for thefollowing risk-cutoff thresholds for the [place] [facility]. Performed By: #### L 500.4050, L500.4100, L100.0500 ####[facility] [address] [place], [address] Cholesterol in HDL [Mass/Vol] 24 mg/dL Low [facility] Comment on above: Order Comment: 109.1 Result Comment: Lucy onal Cholesterol Education Program (NCEP) guidelines:<40 mg/dL: Low HDL-cholesterol (major risk factor for CHD)>= 60 mg/dL: High HDL-cholesterol (negative risk factor forCHD)HDL-cholesterol is affected by a number of factors, e.g.smoking, exercise, hormones, sex and age. Performed By: #### L 500.4050, L500.4100, L100.0500 ####[facility] [address] [place], [address] Cholesterol in LDL [Mass/Vol] 62 mg/dL Normal [facility] Comment on above: Order Comment: 109.1 Result Comment: Bord sutvpg=950-880 mg/dL Higher Pqnd=965 mg/dL or greater Performed By: #### L 500.4050, L500.4100, L100.0500 ####[facility] [address] [place], [address] Cholesterol in VLDL [Mass/Vol] 40 mg/dL Normal 5-40 [facility] Comment on above: Order Comment: 109.1 Performed By: #### L 500.4050, L500.4100, L100.0500 ####[facility] [address] [place], [address] Triglyceride [Mass/Vol] 198 mg/dL Normal [facility] Comment on above: Order Comment: 109.1 Result Comment: The drugs N-Acetylcysteine and Metamizole may falselydepress this assay.Normal range: <150 mg/dLBorderline High: 150-199 mg/dLHigh: 200-499 mg/dLVery High: >500 mg/dL Performed By: #### L 500.4050, L500.4100, L100.0500 ####[facility] [address] [place], [place], [id number] MCV (mean corpuscular volume ) determinationOrdered By: Renard Burgos on 08-23-2024 MCV (RBC) [Entitic vol] 90.6 fL 80-94 [facility] Mean corpuscular hemoglobin (MCH) determinationOrdered By: Renard Burgos on 08-23-2024 MCH (RBC) [Entitic mass] 30.0 pg 27.0-32.0 [facility] Mean corpuscular hemoglobin concentration (MCHC) determinationOrdered By: Renard Burgos on 08-23-2024 MCHC (RBC) [Mass/Vol] 33.2 g/dL 32-36 [facility] Mean platelet volume determi nationOrdered By: Renard Burgos on 08-23-2024 Platelet mean volume (Bld) [Entitic vol] 11.3 fL 6.2-12.0 [facility] Platelet countOrdered By: Garrick Bhatt on 08-23-2024 Platelets (Bld) [#/Vol] 184 10*3/uL 150-450 [facility] Potassium measurement (mass/ volume)Ordered By: Renard Burgos on 08-23-2024 Potassium (Unsp spec) [Mass/Vol] 3.8 mmol/L 3.3-5.1 [facility] RBC Auto (Bld) [#/Vol]Ordere d By: Renard Burgos on 08-23-2024 RBC (Bld) [#/Vol] 4.66 10*6/uL 4.6-6.2 [facility] Screening total cholesterol/ high density lipoprotein (HDL) cholesterol ratioOrdered By: Renard Burgos on 08-23-2024 Cholesterol.total/Cecilia sterol in HDL [Mass ratio] 5.32 {ratio} [facility] Serum creatinine measurement (mass/volume)Ordered By: Renard Burgos on 08-23-2024 Creatinine [Mass/Vol] 0.63 mg/dL Low 0.70-1.20 [facility] Serum globulin measurementOr dered By: Renard Burgos on 08-23-2024 Globulin (S) [Mass/Vol] 2.3 g/dL 2.2-4.2 [facility] Serum glucose measurement (m ass/volume)Ordered By: Renard Burgos on 08-23-2024 Glucose [Mass/Vol] 116 mg/dL High 70-99 [facility] Serum or plasma alanine kay otransferase (ALT) measurementOrdered By: Renard Burgos on 08-23-2024 ALT [Catalytic activity/Vol] 13 U/L <47 [facility] Serum or plasma albumin gordy urement (mass/volume)Ordered By: Renard Burgos on 08-23-2024 Albumin [Mass/Vol] 3.4 g/dL 3.4-4.8 [facility] Serum or plasma albumin/glob ulin mass ratioOrdered By: Renard Burgos on 08-23-2024 Albumin/Globulin [Mass ratio] 1.4 {ratio} 0.9-2.4 [facility] Serum or plasma alkaline trace sphatase measurementOrdered By: Renard Burgos on 08-23-2024 ALP [Catalytic activity/Vol] 101 U/L 40-129 [facility] Serum or plasma calcium gordy urement (mass/volume)Ordered By: Renard Burgos on 08-23-2024 Calcium [Mass/Vol] 8.2 mg/dL 7.6-11.0 [facility] Serum or plasma cholesterol in HDL measurement (mass/volume)Ordered By: Renard Burgos on 08-23-2024 Cholesterol in HDL [Mass/Vol] 24 mg/dL Low >40 [facility] Comment on above: National Cholesterol Education Program (NCEP) guidelines:<40 mg/dL: Low HDL-cholesterol (major risk factor for CHD)>= 60 mg/dL: High HDL-cholesterol (negative risk factor for CHD)HDL-cholesterol is affected by a number of factors, e.g. smoking, exercise, hormones, sex and age. Serum or plasma cholesterol measurement (mass/volume)Ordered By: Renard Burgos on 08-23-2024 Cholesterol [Mass/Vol] 125 mg/dL <201 [facility] Comment on above: Cholesterol level, D esirable <200 mg/dLBorderline high cholesterol 200-239 mg/dLHigh cholesterol >=240 mg/dLRecommendations of the NCEP Adult Treatment Panel for the following risk-cutoff thresholds for the [place] population. Serum or plasma urea nitroge n measurement (mass/volume)Ordered By: Renard Burgos on 08-23-2024 Urea nitrogen [Mass/Vol] 14 mg/dL 4-19 [facility] Sodium levelOrdered By: Lamine Burgos on 08-23-2024 Sodium [Moles/Vol] 141 mmol/L 133-145 [facility] Total proteinOrdered By: Lyubov Burgos on 08-23-2024 Protein [Mass/Vol] 5.7 g/dL Low 5.9-8.4 [facility] Triglycerides measurementOrd ered By: Renard Burgos on 08-23-2024 Triglyceride [Mass/Vol] 198 mg/dL <199 [facility] Comment on above: The drugs N-Acetylcy steine and Metamizole may falsely depress this assay. Normal range: <150 mg/dLBorderline High: 150-199 mg/dLHigh: 200-499 mg/dLVery High: >500 mg/dL White blood cell (WBC) count Ordered By: Renard Burgos on 08-23-2024 WBC (Bld) [#/Vol] 8.6 10*3/uL 4.4-11.0 [facility] Absolute lymphocyte countOrd ered By: Renard Burgos on 08-19-2024 Lymphocytes Auto (Unsp spec) [#/Vol] 1.97 10*3/uL 0.83-4.51 [facility] Absolute neutrophil countOrd ered By: Renard Burgos on 08-19-2024 Neutrophils (Bld) [#/Vol] 5.0 10*3/uL 2.0-7.7 [facility] Automated lymphocyte count a s percentage of total leukocytesOrdered By: Renard Burgos on 08-19-2024 Lymphocytes/100 WBC Auto (Unsp spec) 25.4 % 19-41 [facility] Basophil percentageOrdered B y: Renard Burgos on 08-19-2024 Basophils/100 WBC (Bld) 0.5 % 0-1 [facility] CBC W/Diff, Automatedon 07-31 Absolute Lymph 1.97 X10 3/uL Normal 0.83-4.51 [facility] Comment on above: Order Comment: 109 Performed By: #### L 100.0100 ####[facility] [address] [place], [address] Absolute Neut 5.0 X10 3/uL Normal 2.0-7.7 [facility] Comment on above: Order Comment: 109 Performed By: #### L 100.0100 ####[facility] [address] [place], [address] Basophils/100 WBC (Bld) 0.5 % Normal 0-1 [facility] Comment on above: Order Comment: 109 Performed By: #### L 100.0100 ####[facility] [address] [place], [address] Eosinophils/100 WBC (Bld) 1.0 % Normal 0-5 [facility] Comment on above: Order Comment: 109 Performed By: #### L 100.0100 ####[facility] [address] [place], [address] Erythrocyte distribution width (RBC) [Ratio] 12.7 % Normal 11.6-14.6 [facility] Comment on above: Order Comment: 109 Performed By: #### L 100.0100 ####[facility] [address] [place], [address] Hematocrit (Bld) [Volume fraction] 41.0 % Normal 40-54 [facility] Comment on above: Order Comment: 109 Performed By: #### L 100.0100 ####[facility] [address] [place], [address] Hemoglobin (Bld) [Mass/Vol] 13.6 g/dL Normal 13.0-16.5 [facility] Comment on above: Order Comment: 109 Performed By: #### L 100.0100 ####[facility] [address] [place], [address] IG% 0.400 Normal 0.0-0.9 [facility] Comment on above: Order Comment: 109 Result Comment: IG% - Immature Granulocytes (promyelocytes, myelocytes andmetamyelocytes) > 1% indicates that a LEFT SHIFT is Present. Performed By: #### L 100.0100 ####[facility] [address] [place], [address] Lymphocytes/100 WBC (Bld) 25.4 % Normal 19-41 [facility] Comment on above: Order Comment: 109 Performed By: #### L 100.0100 ####[facility] [address] [place], [address] MCH (RBC) [Entitic mass] 30.2 pg Normal 27.0-32.0 [facility] Comment on above: Order Comment: 109 Performed By: #### L 100.0100 ####[facility] [address] [place], [address] MCHC (RBC) [Mass/Vol] 33.2 g/dL Normal 32-36 [facility] Comment on above: Order Comment: 109 Performed By: #### L 100.0100 ####[facility] [address] [place], [address] MCV (RBC) [Entitic vol] 91.1 fL Normal 80-94 [facility] Comment on above: Order Comment: 109 Performed By: #### L 100.0100 ####[facility] [address] [place], [address] Monocytes/100 WBC (Bld) 8.2 % Normal 0-10 [facility] Comment on above: Order Comment: 109 Performed By: #### L 100.0100 ####[facility] [address] [place], [address] Neutrophils/100 WBC (Bld) 64.5 % Normal 47-70 [facility] Comment on above: Order Comment: 109 Performed By: #### L 100.0100 ####[facility] [address] [place], [address] Nucleated RBC (Bld) [#/Vol] 0 10*3/uL Normal 0-5 [facility] Comment on above: Order Comment: 109 Performed By: #### L 100.0100 ####[facility] [address] [place], [address] Platelet mean volume (Bld) [Entitic vol] 11.1 fL Normal 6.2-12.0 [facility] Comment on above: Order Comment: 109 Performed By: #### L 100.0100 ####[facility] [address] [place], [address] Platelets (Bld) [#/Vol] 207 10*3/uL Normal 150-450 [facility] Comment on above: Order Comment: 109 Performed By: #### L 100.0100 ####[facility] [address] [place], [address] RBC (Bld) [#/Vol] 4.50 10*6/uL Low 4.6-6.2 [facility] Comment on above: Order Comment: 109 Performed By: #### L 100.0100 ####[facility] [address] [place], [address] RDW SD 42.0 fl Normal 35.1-43.9 [facility] Comment on above: Order Comment: 109 Performed By: #### L 100.0100 ####[facility] [address] [place], [address] WBC (Bld) [#/Vol] 7.8 10*3/uL Normal 4.4-11.0 [facility] Comment on above: Order Comment: 109 Performed By: #### L 100.0100 ####[facility] [address] [place], [address] Eosinophil percentageOrdered By: Renard Burgos on 08-19-2024 Eosinophils/100 WBC (Bld) 1.0 % 0-5 [facility] Erythrocyte distribution wid th ratioOrdered By: Renard Burgos on 08-19-2024 Erythrocyte distribution width (RBC) [Ratio] 12.7 % 11.6-14.6 [facility] Erythrocyte distribution wid th standard deviationOrdered By: Renard Burgos on 08-19-2024 Erythrocyte distribution width (RBC) [Ratio] 42.0 fl 35.1-43.9 [facility] Hematocrit Auto (Bld) [Volum e fraction]Ordered By: Renard Burgos on 08-19-2024 Hematocrit (Bld) [Volume fraction] 41.0 % 40-54 [facility] Hemoglobin measurementOrdere d By: Renard Burgos on 08-19-2024 Hemoglobin (Bld) [Mass/Vol] 13.6 g/dL 13.0-16.5 [facility] Immature granulocytes/100 WB C Auto (Bld)Ordered By: Renard Burgos on 08-19-2024 Immature granulocytes/100 WBC (Bld) 0.400 % 0.0-0.9 [facility] Comment on above: IG% - Immature Granu locytes (promyelocytes, myelocytes and metamyelocytes) > 1% indicates that a LEFT SHIFT is Present. MCV (mean corpuscular volume ) determinationOrdered By: Renard Burgos on 08-19-2024 MCV (RBC) [Entitic vol] 91.1 fL 80-94 [facility] Mean corpuscular hemoglobin (MCH) determinationOrdered By: Renard Burgos on 08-19-2024 MCH (RBC) [Entitic mass] 30.2 pg 27.0-32.0 [facility] Mean corpuscular hemoglobin concentration (MCHC) determinationOrdered By: Renard Burgos on 08-19-2024 MCHC (RBC) [Mass/Vol] 33.2 g/dL 32-36 [facility] Mean platelet volume determi nationOrdered By: Renard Burgos on 08-19-2024 Platelet mean volume (Bld) [Entitic vol] 11.1 fL 6.2-12.0 [facility] Monocyte percentageOrdered B y: Renard Burgos on 08-19-2024 Monocytes/100 WBC (Bld) 8.2 % 0-10 [facility] Neutrophil percentageOrdered By: Renard Burgos on 08-19-2024 Neutrophils/100 WBC (Bld) 64.5 % 47-70 [facility] Nucleated red blood cell per centageOrdered By: Renard Burgos on 08-19-2024 Nucleated RBC/100 WBC (Bld) [Ratio] 0 % 0-5 [facility] Platelet countOrdered By: Garrick Bhatt on 08-19-2024 Platelets (Bld) [#/Vol] 207 10*3/uL 150-450 [facility] RBC Auto (Bld) [#/Vol]Ordere d By: Renard Burgos on 08-19-2024 RBC (Bld) [#/Vol] 4.50 10*6/uL Low 4.6-6.2 [facility] White blood cell (WBC) count Ordered By: Renard Burgos on 08-19-2024 WBC (Bld) [#/Vol] 7.8 10*3/uL 4.4-11.0 [facility] Absolute lymphocyte countOrd ered By: Renard Burgos on 08-12-2024 Lymphocytes Auto (Unsp spec) [#/Vol] 2.09 10*3/uL 0.83-4.51 [facility] Absolute neutrophil countOrd ered By: Renard Burgos on 08-12-2024 Neutrophils (Bld) [#/Vol] 5.0 10*3/uL 2.0-7.7 [facility] Automated lymphocyte count a s percentage of total leukocytesOrdered By: Renard Burgos on 08-12-2024 Lymphocytes/100 WBC Auto (Unsp spec) 27.0 % 19-41 [facility] Basophil percentageOrdered B y: Renard Burgos on 08-12-2024 Basophils/100 WBC (Bld) 0.5 % 0-1 [facility] CBC W/Diff, Automatedon 07-30 Absolute Lymph 2.09 X10 3/uL Normal 0.83-4.51 [facility] Comment on above: Order Comment: 109.1 Performed By: #### L 100.0100 ####[facility] [address] [place], [address] Absolute Neut 5.0 X10 3/uL Normal 2.0-7.7 [facility] Comment on above: Order Comment: 109.1 Performed By: #### L 100.0100 ####[facility] [address] [place], [address] Basophils/100 WBC (Bld) 0.5 % Normal 0-1 [facility] Comment on above: Order Comment: 109.1 Performed By: #### L 100.0100 ####[facility] [address] [place], [address] Eosinophils/100 WBC (Bld) 0.9 % Normal 0-5 [facility] Comment on above: Order Comment: 109.1 Performed By: #### L 100.0100 ####[facility] [address] [place], [address] Erythrocyte distribution width (RBC) [Ratio] 12.7 % Normal 11.6-14.6 [facility] Comment on above: Order Comment: 109.1 Performed By: #### L 100.0100 ####[facility] [address] [place], [address] Hematocrit (Bld) [Volume fraction] 41.9 % Normal 40-54 [facility] Comment on above: Order Comment: 109.1 Performed By: #### L 100.0100 ####[facility] [address] [place], [address] Hemoglobin (Bld) [Mass/Vol] 14.1 g/dL Normal 13.0-16.5 [facility] Comment on above: Order Comment: 109.1 Performed By: #### L 100.0100 ####[facility] [address] [place], [address] IG% 0.300 Normal 0.0-0.9 [facility] Comment on above: Order Comment: 109.1 Result Comment: IG% - Immature Granulocytes (promyelocytes, myelocytes andmetamyelocytes) > 1% indicates that a LEFT SHIFT is Present. Performed By: #### L 100.0100 ####[facility] [address] [place], [address] Lymphocytes/100 WBC (Bld) 27.0 % Normal 19-41 [facility] Comment on above: Order Comment: 109.1 Performed By: #### L 100.0100 ####[facility] [address] [place], [address] MCH (RBC) [Entitic mass] 30.3 pg Normal 27.0-32.0 [facility] Comment on above: Order Comment: 109.1 Performed By: #### L 100.0100 ####[facility] [address] [place], [address] MCHC (RBC) [Mass/Vol] 33.7 g/dL Normal 32-36 [facility] Comment on above: Order Comment: 109.1 Performed By: #### L 100.0100 ####[facility] [address] [place], [address] MCV (RBC) [Entitic vol] 90.1 fL Normal 80-94 [facility] Comment on above: Order Comment: 109.1 Performed By: #### L 100.0100 ####[facility] [address] [place], [address] Monocytes/100 WBC (Bld) 7.1 % Normal 0-10 [facility] Comment on above: Order Comment: 109.1 Performed By: #### L 100.0100 ####[facility] [address] [place], [address] Neutrophils/100 WBC (Bld) 64.2 % Normal 47-70 [facility] Comment on above: Order Comment: 109.1 Performed By: #### L 100.0100 ####[facility] [address] [place], [address] Nucleated RBC (Bld) [#/Vol] 0 10*3/uL Normal 0-5 [facility] Comment on above: Order Comment: 109.1 Performed By: #### L 100.0100 ####[facility] [address] [place], [address] Platelet mean volume (Bld) [Entitic vol] 11.2 fL Normal 6.2-12.0 [facility] Comment on above: Order Comment: 109.1 Performed By: #### L 100.0100 ####[facility] [address] [place], [address] Platelets (Bld) [#/Vol] 188 10*3/uL Normal 150-450 [facility] Comment on above: Order Comment: 109.1 Performed By: #### L 100.0100 ####[facility] [address] [place], [address] RBC (Bld) [#/Vol] 4.65 10*6/uL Normal 4.6-6.2 [facility] Comment on above: Order Comment: 109.1 Performed By: #### L 100.0100 ####[facility] [address] [place], [address] RDW SD 41.6 fl Normal 35.1-43.9 [facility] Comment on above: Order Comment: 109.1 Performed By: #### L 100.0100 ####[facility] [address] [place], [address] WBC (Bld) [#/Vol] 7.8 10*3/uL Normal 4.4-11.0 [facility] Comment on above: Order Comment: 109.1 Performed By: #### L 100.0100 ####[facility] [address] [place], [address] Eosinophil percentageOrdered By: Renard Burgos on 08-12-2024 Eosinophils/100 WBC (Bld) 0.9 % 0-5 [facility] Erythrocyte distribution wid th (RBC) [Ratio]Ordered By: Renard Burgos on 08-12-2024 Erythrocyte distribution width (RBC) [Entitic vol] 41.6 fL 35.1-43.9 [facility] Erythrocyte distribution wid th ratioOrdered By: Renard Burgos on 08-12-2024 Erythrocyte distribution width (RBC) [Ratio] 12.7 % 11.6-14.6 [facility] Erythrocyte distribution wid th standard deviationOrdered By: Renard Burgos on 08-12-2024 Erythrocyte distribution width (RBC) [Ratio] 41.6 fl 35.1-43.9 [facility] Hematocrit Auto (Bld) [Volum e fraction]Ordered By: Renard Burgos on 08-12-2024 Hematocrit (Bld) [Volume fraction] 41.9 % 40-54 [facility] Hemoglobin measurementOrdere d By: Renard Burgos on 08-12-2024 Hemoglobin (Bld) [Mass/Vol] 14.1 g/dL 13.0-16.5 [facility] Immature granulocytes/100 WB C Auto (Bld)Ordered By: Renard Burgos on 08-12-2024 Immature granulocytes/100 WBC (Bld) 0.300 % 0.0-0.9 [facility] Comment on above: IG% - Immature Granu locytes (promyelocytes, myelocytes and metamyelocytes) > 1% indicates that a LEFT SHIFT is Present. Lymphocytes Auto (Unsp spec) [#/Vol]Ordered By: Renard Burgos on 08-12-2024 Lymphocytes (Bld) [#/Vol] 2.09 10*3/uL 0.83-4.51 [facility] Lymphocytes/100 WBC Auto (Un sp spec)Ordered By: Renard Burgos on 08-12-2024 Lymphocytes/100 WBC (Bld) 27.0 % 19-41 [facility] MCV (mean corpuscular volume ) determinationOrdered By: Renard Burgos on 08-12-2024 MCV (RBC) [Entitic vol] 90.1 fL 80-94 [facility] Mean corpuscular hemoglobin (MCH) determinationOrdered By: Renard Burgos on 08-12-2024 MCH (RBC) [Entitic mass] 30.3 pg 27.0-32.0 [facility] Mean corpuscular hemoglobin concentration (MCHC) determinationOrdered By: Renard Burgos on 08-12-2024 MCHC (RBC) [Mass/Vol] 33.7 g/dL 32-36 [facility] Mean platelet volume determi nationOrdered By: Renard Burgos on 08-12-2024 Platelet mean volume (Bld) [Entitic vol] 11.2 fL 6.2-12.0 [facility] Monocyte percentageOrdered B y: Renard Burgos on 08-12-2024 Monocytes/100 WBC (Bld) 7.1 % 0-10 [facility] Neutrophil percentageOrdered By: Renard Burgos on 08-12-2024 Neutrophils/100 WBC (Bld) 64.2 % 47-70 [facility] Nucleated red blood cell per centageOrdered By: Renard Burgos on 08-12-2024 Nucleated RBC/100 WBC (Bld) [Ratio] 0 % 0-5 [facility] Platelet countOrdered By: Garrick Bhatt on 08-12-2024 Platelets (Bld) [#/Vol] 188 10*3/uL 150-450 [facility] RBC Auto (Bld) [#/Vol]Ordere d By: Renard Burgos on 08-12-2024 RBC (Bld) [#/Vol] 4.65 10*6/uL 4.6-6.2 [facility] White blood cell (WBC) count Ordered By: Renard Burgos on 08-12-2024 WBC (Bld) [#/Vol] 7.8 10*3/uL 4.4-11.0 [facility] Absolute lymphocyte countOrd ered By: Renard Burgos on 08-05-2024 Lymphocytes Auto (Unsp spec) [#/Vol] 2.31 10*3/uL 0.83-4.51 [facility] Absolute neutrophil countOrd ered By: Renard Burgos on 08-05-2024 Neutrophils (Bld) [#/Vol] 5.4 10*3/uL 2.0-7.7 [facility] Automated lymphocyte count a s percentage of total leukocytesOrdered By: Renard Burgos on 08-05-2024 Lymphocytes/100 WBC Auto (Unsp spec) 26.9 % 19-41 [facility] Basophil percentageOrdered B y: Renard Burgos on 08-05-2024 Basophils/100 WBC (Bld) 0.6 % 0-1 [facility] CBC W/Diff, Automatedon Absolute Lymph 2.31 X10 3/uL Normal 0.83-4.51 [facility] Comment on above: Order Comment: 109.1 Performed By: #### L 100.0100 ####[facility] [address] [place], [place], [id number] Absolute Neut 5.4 X10 3/uL Normal 2.0-7.7 [facility] Comment on above: Order Comment: 109.1 Performed By: #### L 100.0100 ####[facility] [address] [place], [address] Basophils/100 WBC (Bld) 0.6 % Normal 0-1 [facility] Comment on above: Order Comment: 109.1 Performed By: #### L 100.0100 ####[facility] [address] [place], [address] Eosinophils/100 WBC (Bld) 0.8 % Normal 0-5 [facility] Comment on above: Order Comment: 109.1 Performed By: #### L 100.0100 ####[facility] [address] [place], [address] Erythrocyte distribution width (RBC) [Ratio] 12.7 % Normal 11.6-14.6 [facility] Comment on above: Order Comment: 109.1 Performed By: #### L 100.0100 ####[facility] [address] [place], [address] Hematocrit (Bld) [Volume fraction] 41.6 % Normal 40-54 [facility] Comment on above: Order Comment: 109.1 Performed By: #### L 100.0100 ####[facility] [address] [place], [address] Hemoglobin (Bld) [Mass/Vol] 13.7 g/dL Normal 13.0-16.5 [facility] Comment on above: Order Comment: 109.1 Performed By: #### L 100.0100 ####[facility] [address] [place], [address] IG% 0.300 Normal 0.0-0.9 [facility] Comment on above: Order Comment: 109.1 Result Comment: IG% - Immature Granulocytes (promyelocytes, myelocytes andmetamyelocytes) > 1% indicates that a LEFT SHIFT is Present. Performed By: #### L 100.0100 ####[facility] [address] [place], [address] Lymphocytes/100 WBC (Bld) 26.9 % Normal 19-41 [facility] Comment on above: Order Comment: 109.1 Performed By: #### L 100.0100 ####[facility] [address] [place], [address] MCH (RBC) [Entitic mass] 30.1 pg Normal 27.0-32.0 [facility] Comment on above: Order Comment: 109.1 Performed By: #### L 100.0100 ####[facility] [address] [place], [address] MCHC (RBC) [Mass/Vol] 32.9 g/dL Normal 32-36 [facility] Comment on above: Order Comment: 109.1 Performed By: #### L 100.0100 ####[facility] [address] [place], [address] MCV (RBC) [Entitic vol] 91.4 fL Normal 80-94 [facility] Comment on above: Order Comment: 109.1 Performed By: #### L 100.0100 ####[facility] [address] [place], [address] Monocytes/100 WBC (Bld) 8.3 % Normal 0-10 [facility] Comment on above: Order Comment: 109.1 Performed By: #### L 100.0100 ####[facility] [address] [place], [address] Neutrophils/100 WBC (Bld) 63.1 % Normal 47-70 [facility] Comment on above: Order Comment: 109.1 Performed By: #### L 100.0100 ####[facility] [address] [place], [address] Nucleated RBC (Bld) [#/Vol] 0 10*3/uL Normal 0-5 [facility] Comment on above: Order Comment: 109.1 Performed By: #### L 100.0100 ####[facility] [address] [place], [address] Platelet mean volume (Bld) [Entitic vol] 11.1 fL Normal 6.2-12.0 [facility] Comment on above: Order Comment: 109.1 Performed By: #### L 100.0100 ####[facility] [address] [place], [address] Platelets (Bld) [#/Vol] 199 10*3/uL Normal 150-450 [facility] Comment on above: Order Comment: 109.1 Performed By: #### L 100.0100 ####[facility] [address] [place], [address] RBC (Bld) [#/Vol] 4.55 10*6/uL Low 4.6-6.2 [facility] Comment on above: Order Comment: 109.1 Performed By: #### L 100.0100 ####[facility] [address] [place], [address] RDW SD 42.5 fl Normal 35.1-43.9 [facility] Comment on above: Order Comment: 109.1 Performed By: #### L 100.0100 ####[facility] [address] [place], [address] WBC (Bld) [#/Vol] 8.6 10*3/uL Normal 4.4-11.0 [facility] Comment on above: Order Comment: 109.1 Performed By: #### L 100.0100 ####[facility] [address] [place], [address] Eosinophil percentageOrdered By: Renard Burgos on 08-05-2024 Eosinophils/100 WBC (Bld) 0.8 % 0-5 [facility] Erythrocyte distribution wid th (RBC) [Ratio]Ordered By: Renard Burgos on 08-05-2024 Erythrocyte distribution width (RBC) [Entitic vol] 42.5 fL 35.1-43.9 [facility] Erythrocyte distribution wid th ratioOrdered By: Renard Burgos on 08-05-2024 Erythrocyte distribution width (RBC) [Ratio] 12.7 % 11.6-14.6 [facility] Erythrocyte distribution wid th standard deviationOrdered By: Renard Burgos on 08-05-2024 Erythrocyte distribution width (RBC) [Ratio] 42.5 fl 35.1-43.9 [facility] Hematocrit Auto (Bld) [Volum e fraction]Ordered By: Renard Burgos on 08-05-2024 Hematocrit (Bld) [Volume fraction] 41.6 % 40-54 [facility] Hemoglobin measurementOrdere d By: Renard Burgos on 08-05-2024 Hemoglobin (Bld) [Mass/Vol] 13.7 g/dL 13.0-16.5 [facility] Immature granulocytes/100 WB C Auto (Bld)Ordered By: Renard Burgos on 08-05-2024 Immature granulocytes/100 WBC (Bld) 0.300 % 0.0-0.9 [facility] Comment on above: IG% - Immature Granu locytes (promyelocytes, myelocytes and metamyelocytes) > 1% indicates that a LEFT SHIFT is Present. Lymphocytes Auto (Unsp spec) [#/Vol]Ordered By: Renard Burgos on 08-05-2024 Lymphocytes (Bld) [#/Vol] 2.31 10*3/uL 0.83-4.51 [facility] Lymphocytes/100 WBC Auto (Un sp spec)Ordered By: Renard Burgos on 08-05-2024 Lymphocytes/100 WBC (Bld) 26.9 % 19-41 [facility] MCV (mean corpuscular volume ) determinationOrdered By: Renard Burgos on 08-05-2024 MCV (RBC) [Entitic vol] 91.4 fL 80-94 [facility] Mean corpuscular hemoglobin (MCH) determinationOrdered By: Renard Burgos on 08-05-2024 MCH (RBC) [Entitic mass] 30.1 pg 27.0-32.0 [facility] Mean corpuscular hemoglobin concentration (MCHC) determinationOrdered By: Renard Burgos on 08-05-2024 MCHC (RBC) [Mass/Vol] 32.9 g/dL 32-36 [facility] Mean platelet volume determi nationOrdered By: Renard Burgos on 08-05-2024 Platelet mean volume (Bld) [Entitic vol] 11.1 fL 6.2-12.0 [facility] Monocyte percentageOrdered B y: Renard Burgos on 08-05-2024 Monocytes/100 WBC (Bld) 8.3 % 0-10 [facility] Neutrophil percentageOrdered By: Renard Burgos on 08-05-2024 Neutrophils/100 WBC (Bld) 63.1 % 47-70 [facility] Nucleated red blood cell per centageOrdered By: Renard Burgos on 08-05-2024 Nucleated RBC/100 WBC (Bld) [Ratio] 0 % 0-5 [facility] Platelet countOrdered By: Garrick Bhatt on 08-05-2024 Platelets (Bld) [#/Vol] 199 10*3/uL 150-450 [facility] RBC Auto (Bld) [#/Vol]Ordere d By: Renard Burgos on 08-05-2024 RBC (Bld) [#/Vol] 4.55 10*6/uL Low 4.6-6.2 [facility] White blood cell (WBC) count Ordered By: Renard Burgos on 08-05-2024 WBC (Bld) [#/Vol] 8.6 10*3/uL 4.4-11.0 [facility] Absolute lymphocyte countOrd ered By: Renard Burgos on 07-29-2024 Lymphocytes Auto (Unsp spec) [#/Vol] 1.93 10*3/uL 0.83-4.51 [facility] Absolute neutrophil countOrd ered By: Renard Burgos on 07-29-2024 Neutrophils (Bld) [#/Vol] 6.8 10*3/uL 2.0-7.7 [facility] Automated lymphocyte count a s percentage of total leukocytesOrdered By: Renard Burgos on 07-29-2024 Lymphocytes/100 WBC Auto (Unsp spec) 20.2 % 19-41 [facility] Basophil percentageOrdered B y: Renard Burgos on 07-29-2024 Basophils/100 WBC (Bld) 0.5 % 0-1 [facility] CBC W/Diff, Automatedon 03-3 -2024 Absolute Lymph 1.93 X10 3/uL Normal 0.83-4.51 [facility] Comment on above: Order Comment: 109-1 Performed By: #### L 100.0100 ####[facility] [address] [place], [address] Absolute Neut 6.8 X10 3/uL Normal 2.0-7.7 [facility] Comment on above: Order Comment: 109-1 Performed By: #### L 100.0100 ####[facility] [address] [place], [address] Basophils/100 WBC (Bld) 0.5 % Normal 0-1 [facility] Comment on above: Order Comment: 109-1 Performed By: #### L 100.0100 ####[facility] [address] [place], [address] Eosinophils/100 WBC (Bld) 0.7 % Normal 0-5 [facility] Comment on above: Order Comment: 109-1 Performed By: #### L 100.0100 ####[facility] [address] [place], [address] Erythrocyte distribution width (RBC) [Ratio] 12.8 % Normal 11.6-14.6 [facility] Comment on above: Order Comment: 109-1 Performed By: #### L 100.0100 ####[facility] [address] [place], [address] Hematocrit (Bld) [Volume fraction] 40.7 % Normal 40-54 [facility] Comment on above: Order Comment: 109-1 Performed By: #### L 100.0100 ####[facility] [address] [place], [address] Hemoglobin (Bld) [Mass/Vol] 13.5 g/dL Normal 13.0-16.5 [facility] Comment on above: Order Comment: 109-1 Performed By: #### L 100.0100 ####[facility] [address] [place], [address] IG% 0.400 Normal 0.0-0.9 [facility] Comment on above: Order Comment: 109-1 Result Comment: IG% - Immature Granulocytes (promyelocytes, myelocytes andmetamyelocytes) > 1% indicates that a LEFT SHIFT is Present. Performed By: #### L 100.0100 ####[facility] [address] [place], [address] Lymphocytes/100 WBC (Bld) 20.2 % Normal 19-41 [facility] Comment on above: Order Comment: 109-1 Performed By: #### L 100.0100 ####[facility] [address] [place], [address] MCH (RBC) [Entitic mass] 29.9 pg Normal 27.0-32.0 [facility] Comment on above: Order Comment: 109-1 Performed By: #### L 100.0100 ####[facility] [address] [place], [address] MCHC (RBC) [Mass/Vol] 33.2 g/dL Normal 32-36 [facility] Comment on above: Order Comment: 109-1 Performed By: #### L 100.0100 ####[facility] [address] [place], [address] MCV (RBC) [Entitic vol] 90.0 fL Normal 80-94 [facility] Comment on above: Order Comment: 109-1 Performed By: #### L 100.0100 ####[facility] [address] [place], [address] Monocytes/100 WBC (Bld) 7.1 % Normal 0-10 [facility] Comment on above: Order Comment: 109-1 Performed By: #### L 100.0100 ####[facility] [address] [place], [address] Neutrophils/100 WBC (Bld) 71.1 % High 47-70 [facility] Comment on above: Order Comment: 109-1 Performed By: #### L 100.0100 ####[facility] [address] [place], [address] Nucleated RBC (Bld) [#/Vol] 0 10*3/uL Normal 0-5 [facility] Comment on above: Order Comment: 109-1 Performed By: #### L 100.0100 ####[facility] [address] [place], [address] Platelet mean volume (Bld) [Entitic vol] 11.2 fL Normal 6.2-12.0 [facility] Comment on above: Order Comment: 109-1 Performed By: #### L 100.0100 ####[facility] [address] [place], [address] Platelets (Bld) [#/Vol] 218 10*3/uL Normal 150-450 [facility] Comment on above: Order Comment: 109-1 Performed By: #### L 100.0100 ####[facility] [address] [place], [address] RBC (Bld) [#/Vol] 4.52 10*6/uL Low 4.6-6.2 [facility] Comment on above: Order Comment: 109-1 Performed By: #### L 100.0100 ####[facility] [address] [place], [address] RDW SD 41.9 fl Normal 35.1-43.9 [facility] Comment on above: Order Comment: 109-1 Performed By: #### L 100.0100 ####[facility] [address] [place], [address] WBC (Bld) [#/Vol] 9.6 10*3/uL Normal 4.4-11.0 [facility] Comment on above: Order Comment: 109-1 Performed By: #### L 100.0100 ####[facility] [address] [place], [address] Eosinophil percentageOrdered By: Renard Burgos on 07-29-2024 Eosinophils/100 WBC (Bld) 0.7 % 0-5 [facility] Erythrocyte distribution wid th ratioOrdered By: Renard Burgos on 07-29-2024 Erythrocyte distribution width (RBC) [Ratio] 12.8 % 11.6-14.6 [facility] Erythrocyte distribution wid th standard deviationOrdered By: Renard Burgos on 07-29-2024 Erythrocyte distribution width (RBC) [Entitic vol] 41.9 fL 35.1-43.9 [facility] Erythrocyte distribution width (RBC) [Ratio] 41.9 fl 35.1-43.9 [facility] Hematocrit Auto (Bld) [Volum e fraction]Ordered By: Renard Burgos on 07-29-2024 Hematocrit (Bld) [Volume fraction] 40.7 % 40-54 [facility] Hemoglobin measurementOrdere d By: Renard Burgos on 07-29-2024 Hemoglobin (Bld) [Mass/Vol] 13.5 g/dL 13.0-16.5 [facility] Immature granulocytes/100 WB C Auto (Bld)Ordered By: Renard Burgos on 07-29-2024 Immature granulocytes/100 WBC (Bld) 0.400 % 0.0-0.9 [facility] Comment on above: IG% - Immature Granu locytes (promyelocytes, myelocytes and metamyelocytes) > 1% indicates that a LEFT SHIFT is Present. Lymphocytes Auto (Unsp spec) [#/Vol]Ordered By: Renard Burgos on 07-29-2024 Lymphocytes (Bld) [#/Vol] 1.93 10*3/uL 0.83-4.51 [facility] Lymphocytes/100 WBC Auto (Un sp spec)Ordered By: Renard Burgos on 07-29-2024 Lymphocytes/100 WBC (Bld) 20.2 % 19-41 [facility] MCV (mean corpuscular volume ) determinationOrdered By: Renard Burgos on 07-29-2024 MCV (RBC) [Entitic vol] 90.0 fL 80-94 [facility] Mean corpuscular hemoglobin (MCH) determinationOrdered By: Renard Burgos on 07-29-2024 MCH (RBC) [Entitic mass] 29.9 pg 27.0-32.0 [facility] Mean corpuscular hemoglobin concentration (MCHC) determinationOrdered By: Renard Burgos on 07-29-2024 MCHC (RBC) [Mass/Vol] 33.2 g/dL 32-36 [facility] Mean platelet volume determi nationOrdered By: Renard Burgos on 07-29-2024 Platelet mean volume (Bld) [Entitic vol] 11.2 fL 6.2-12.0 [facility] Monocyte percentageOrdered B y: Renard Burgos on 07-29-2024 Monocytes/100 WBC (Bld) 7.1 % 0-10 [facility] Neutrophil percentageOrdered By: Renard Burgos on 07-29-2024 Neutrophils/100 WBC (Bld) 71.1 % High 47-70 [facility] Nucleated red blood cell per centageOrdered By: Renard Burgos on 07-29-2024 Nucleated RBC/100 WBC (Bld) [Ratio] 0 % 0-5 [facility] Platelet countOrdered By: Garrick Bhatt on 07-29-2024 Platelets (Bld) [#/Vol] 218 10*3/uL 150-450 [facility] RBC Auto (Bld) [#/Vol]Ordere d By: Renard Burgos on 07-29-2024 RBC (Bld) [#/Vol] 4.52 10*6/uL Low 4.6-6.2 [facility] White blood cell (WBC) count Ordered By: Renard Burgos on 07-29-2024 WBC (Bld) [#/Vol] 9.6 10*3/uL 4.4-11.0 [facility] Absolute lymphocyte countOrd ered By: Renard Burgos on 07-22-2024 Lymphocytes Auto (Unsp spec) [#/Vol] 1.90 10*3/uL 0.83-4.51 [facility] Absolute neutrophil countOrd ered By: Renard Hensleydiego on 07-22-2024 Neutrophils (Bld) [#/Vol] 5.2 10*3/uL 2.0-7.7 [facility] Automated lymphocyte count a s percentage of total leukocytesOrdered By: Renard Burgos on 07-22-2024 Lymphocytes/100 WBC Auto (Unsp spec) 23.9 % 19-41 [facility] Basophil percentageOrdered B y: Renard Burgos on 07-22-2024 Basophils/100 WBC (Bld) 0.6 % 0-1 [facility] CBC W/Diff, Automatedon 06-30 Absolute Lymph 1.90 X10 3/uL Normal 0.83-4.51 [facility] Comment on above: Order Comment: 109.1 Performed By: #### L 100.0100 ####[facility] [address] [place], [address] Absolute Neut 5.2 X10 3/uL Normal 2.0-7.7 [facility] Comment on above: Order Comment: 109.1 Performed By: #### L 100.0100 ####[facility] [address] [place], [address] Basophils/100 WBC (Bld) 0.6 % Normal 0-1 [facility] Comment on above: Order Comment: 109.1 Performed By: #### L 100.0100 ####[facility] [address] [place], [address] Eosinophils/100 WBC (Bld) 0.9 % Normal 0-5 [facility] Comment on above: Order Comment: 109.1 Performed By: #### L 100.0100 ####[facility] [address] [place], [address] Erythrocyte distribution width (RBC) [Ratio] 12.9 % Normal 11.6-14.6 [facility] Comment on above: Order Comment: 109.1 Performed By: #### L 100.0100 ####[facility] [address] [place], [address] Hematocrit (Bld) [Volume fraction] 41.4 % Normal 40-54 [facility] Comment on above: Order Comment: 109.1 Performed By: #### L 100.0100 ####[facility] [address] [place], [address] Hemoglobin (Bld) [Mass/Vol] 13.5 g/dL Normal 13.0-16.5 [facility] Comment on above: Order Comment: 109.1 Performed By: #### L 100.0100 ####[facility] [address] [place], [address] IG% 0.300 Normal 0.0-0.9 [facility] Comment on above: Order Comment: 109.1 Result Comment: IG% - Immature Granulocytes (promyelocytes, myelocytes andmetamyelocytes) > 1% indicates that a LEFT SHIFT is Present. Performed By: #### L 100.0100 ####[facility] [address] [place], [address] Lymphocytes/100 WBC (Bld) 23.9 % Normal 19-41 [facility] Comment on above: Order Comment: 109.1 Performed By: #### L 100.0100 ####[facility] [address] [place], [address] MCH (RBC) [Entitic mass] 29.8 pg Normal 27.0-32.0 [facility] Comment on above: Order Comment: 109.1 Performed By: #### L 100.0100 ####[facility] [address] [place], [address] MCHC (RBC) [Mass/Vol] 32.6 g/dL Normal 32-36 [facility] Comment on above: Order Comment: 109.1 Performed By: #### L 100.0100 ####[facility] [address] [place], [address] MCV (RBC) [Entitic vol] 91.4 fL Normal 80-94 [facility] Comment on above: Order Comment: 109.1 Performed By: #### L 100.0100 ####[facility] [address] [place], [address] Monocytes/100 WBC (Bld) 9.4 % Normal 0-10 [facility] Comment on above: Order Comment: 109.1 Performed By: #### L 100.0100 ####[facility] [address] [place], [address] Neutrophils/100 WBC (Bld) 64.9 % Normal 47-70 [facility] Comment on above: Order Comment: 109.1 Performed By: #### L 100.0100 ####[facility] [address] [place], [address] Nucleated RBC (Bld) [#/Vol] 0 10*3/uL Normal 0-5 [facility] Comment on above: Order Comment: 109.1 Performed By: #### L 100.0100 ####[facility] [address] [place], [address] Platelet mean volume (Bld) [Entitic vol] 11.5 fL Normal 6.2-12.0 [facility] Comment on above: Order Comment: 109.1 Performed By: #### L 100.0100 ####[facility] [address] [place], [address] Platelets (Bld) [#/Vol] 202 10*3/uL Normal 150-450 [facility] Comment on above: Order Comment: 109.1 Performed By: #### L 100.0100 ####[facility] [address] [place], [address] RBC (Bld) [#/Vol] 4.53 10*6/uL Low 4.6-6.2 [facility] Comment on above: Order Comment: 109.1 Performed By: #### L 100.0100 ####[facility] [address] [place], [place], [phone] RDW SD 42.7 fl Normal 35.1-43.9 [facility] Comment on above: Order Comment: 109.1 Performed By: #### L 100.0100 ####[facility] [address] [place], [place], [phone]([phone] WBC (Bld) [#/Vol] 8.0 10*3/uL Normal 4.4-11.0 [facility] Comment on above: Order Comment: 109.1 Performed By: #### L 100.0100 ####[facility] [address] [place], [place], [id number] Eosinophil percentageOrdered By: Renard Burgos on 07-22-2024 Eosinophils/100 WBC (Bld) 0.9 % 0-5 [facility] Erythrocyte distribution wid th ratioOrdered By: Renard Burgos on 07-22-2024 Erythrocyte distribution width (RBC) [Ratio] 12.9 % 11.6-14.6 [facility] Erythrocyte distribution wid th standard deviationOrdered By: Renard Burgos on 07-22-2024 Erythrocyte distribution width (RBC) [Entitic vol] 42.7 fL 35.1-43.9 [facility] Erythrocyte distribution width (RBC) [Ratio] 42.7 fl 35.1-43.9 [facility] Hematocrit Auto (Bld) [Volum e fraction]Ordered By: Renard Burgos on 07-22-2024 Hematocrit (Bld) [Volume fraction] 41.4 % 40-54 [facility] Hemoglobin measurementOrdere d By: Renard Burgos on 07-22-2024 Hemoglobin (Bld) [Mass/Vol] 13.5 g/dL 13.0-16.5 [facility] Immature granulocytes/100 WB C Auto (Bld)Ordered By: Renard Burgos on 07-22-2024 Immature granulocytes/100 WBC (Bld) 0.300 % 0.0-0.9 [facility] Comment on above: IG% - Immature Granu locytes (promyelocytes, myelocytes and metamyelocytes) > 1% indicates that a LEFT SHIFT is Present. Lymphocytes Auto (Unsp spec) [#/Vol]Ordered By: Renard Burgos on 07-22-2024 Lymphocytes (Bld) [#/Vol] 1.90 10*3/uL 0.83-4.51 [facility] Lymphocytes/100 WBC Auto (Un sp spec)Ordered By: Renard Burgos on 07-22-2024 Lymphocytes/100 WBC (Bld) 23.9 % 19-41 [facility] MCV (mean corpuscular volume ) determinationOrdered By: Renard Burgos on 07-22-2024 MCV (RBC) [Entitic vol] 91.4 fL 80-94 [facility] Mean corpuscular hemoglobin (MCH) determinationOrdered By: Renard Burgos on 07-22-2024 MCH (RBC) [Entitic mass] 29.8 pg 27.0-32.0 [facility] Mean corpuscular hemoglobin concentration (MCHC) determinationOrdered By: Renard Burgos on 07-22-2024 MCHC (RBC) [Mass/Vol] 32.6 g/dL 32-36 [facility] Mean platelet volume determi nationOrdered By: Renard Burgos on 07-22-2024 Platelet mean volume (Bld) [Entitic vol] 11.5 fL 6.2-12.0 [facility] Monocyte percentageOrdered B y: Renard Burgos on 07-22-2024 Monocytes/100 WBC (Bld) 9.4 % 0-10 [facility] Neutrophil percentageOrdered By: Renard Burgos on 07-22-2024 Neutrophils/100 WBC (Bld) 64.9 % 47-70 [facility] Nucleated red blood cell per centageOrdered By: Renard Burgos on 07-22-2024 Nucleated RBC/100 WBC (Bld) [Ratio] 0 % 0-5 [facility] Platelet countOrdered By: Garrick Bhatt on 07-22-2024 Platelets (Bld) [#/Vol] 202 10*3/uL 150-450 [facility] RBC Auto (Bld) [#/Vol]Ordere d By: Renard Burgos on 07-22-2024 RBC (Bld) [#/Vol] 4.53 10*6/uL Low 4.6-6.2 [facility] White blood cell (WBC) count Ordered By: Renard Burgos on 07-22-2024 WBC (Bld) [#/Vol] 8.0 10*3/uL 4.4-11.0 [facility] L506.1001on 07-16-2024 Vitamin D 25-OH 21.8 ng/mL Low 30-100 [facility] Comment on above: Order Comment: 109 Result Comment: Edilma min D StatusDeficiency: <20 ng/mL (50nmol/L)Insufficiency: 20-30 ng/mL (50-75 nmol/L)Sufficiency: 30-100 ng/mL (75-250 nmol/L)Toxicity: >100 ng/mL (>250 nmol/L) Performed By: #### L 506.1001 ####[facility] [address] [place], [address] Vitamin D, 25-hydroxyOrdered By: Renard Burgos on 07-16-2024 Vitamin D 25-Hydroxy 21.8 ng/mL Low 30-100 [facility] Comment on above: Vitamin D StatusDefi ciency: <20 ng/mL (50nmol/L)Insufficiency: 20-30 ng/mL (50-75 nmol/L)Sufficiency: 30-100 ng/mL (75-250 nmol/L)Toxicity: >100 ng/mL (>250 nmol/L) Absolute lymphocyte countOrd ered By: Renard Burgos on 07-15-2024 Lymphocytes Auto (Unsp spec) [#/Vol] 2.10 10*3/uL 0.83-4.51 [facility] Absolute neutrophil countOrd ered By: Renard Burgos on 07-15-2024 Neutrophils (Bld) [#/Vol] 6.9 10*3/uL 2.0-7.7 [facility] Automated lymphocyte count a s percentage of total leukocytesOrdered By: Renard Burgos on 07-15-2024 Lymphocytes/100 WBC Auto (Unsp spec) 21.0 % 19-41 [facility] Basophil percentageOrdered B y: Renard Burgos on 07-15-2024 Basophils/100 WBC (Bld) 0.5 % 0-1 [facility] CBC W/Diff, Automatedon 06-29 Absolute Lymph 2.10 X10 3/uL Normal 0.83-4.51 [facility] Comment on above: Order Comment: 109.1 Performed By: #### L 100.0100 ####[facility] [address] [place], [address] Absolute Neut 6.9 X10 3/uL Normal 2.0-7.7 [facility] Comment on above: Order Comment: 109.1 Performed By: #### L 100.0100 ####[facility] [address] [place], [address] Basophils/100 WBC (Bld) 0.5 % Normal 0-1 [facility] Comment on above: Order Comment: 109.1 Performed By: #### L 100.0100 ####[facility] [address] [place], [address] Eosinophils/100 WBC (Bld) 1.2 % Normal 0-5 [facility] Comment on above: Order Comment: 109.1 Performed By: #### L 100.0100 ####[facility] [address] [place], [address] Erythrocyte distribution width (RBC) [Ratio] 12.9 % Normal 11.6-14.6 [facility] Comment on above: Order Comment: 109.1 Performed By: #### L 100.0100 ####[facility] [address] [place], [address] Hematocrit (Bld) [Volume fraction] 41.0 % Normal 40-54 [facility] Comment on above: Order Comment: 109.1 Performed By: #### L 100.0100 ####[facility] [address] [place], [address] Hemoglobin (Bld) [Mass/Vol] 13.4 g/dL Normal 13.0-16.5 [facility] Comment on above: Order Comment: 109.1 Performed By: #### L 100.0100 ####[facility] [address] [place], [address] IG% 0.300 Normal 0.0-0.9 [facility] Comment on above: Order Comment: 109.1 Result Comment: IG% - Immature Granulocytes (promyelocytes, myelocytes andmetamyelocytes) > 1% indicates that a LEFT SHIFT is Present. Performed By: #### L 100.0100 ####[facility] [address] [place], [address] Lymphocytes/100 WBC (Bld) 21.0 % Normal 19-41 [facility] Comment on above: Order Comment: 109.1 Performed By: #### L 100.0100 ####[facility] [address] [place], [address] MCH (RBC) [Entitic mass] 29.7 pg Normal 27.0-32.0 [facility] Comment on above: Order Comment: 109.1 Performed By: #### L 100.0100 ####[facility] [address] [place], [address] MCHC (RBC) [Mass/Vol] 32.7 g/dL Normal 32-36 [facility] Comment on above: Order Comment: 109.1 Performed By: #### L 100.0100 ####[facility] [address] [place], [address] MCV (RBC) [Entitic vol] 90.9 fL Normal 80-94 [facility] Comment on above: Order Comment: 109.1 Performed By: #### L 100.0100 ####[facility] [address] [place], [address] Monocytes/100 WBC (Bld) 7.6 % Normal 0-10 [facility] Comment on above: Order Comment: 109.1 Performed By: #### L 100.0100 ####[facility] [address] [place], [address] Neutrophils/100 WBC (Bld) 69.4 % Normal 47-70 [facility] Comment on above: Order Comment: 109.1 Performed By: #### L 100.0100 ####[facility] [address] [place], [address] Nucleated RBC (Bld) [#/Vol] 0 10*3/uL Normal 0-5 [facility] Comment on above: Order Comment: 109.1 Performed By: #### L 100.0100 ####[facility] [address] [place], [address] Platelet mean volume (Bld) [Entitic vol] 11.4 fL Normal 6.2-12.0 [facility] Comment on above: Order Comment: 109.1 Performed By: #### L 100.0100 ####[facility] [address] [place], [address] Platelets (Bld) [#/Vol] 206 10*3/uL Normal 150-450 [facility] Comment on above: Order Comment: 109.1 Performed By: #### L 100.0100 ####[facility] [address] [place], [address] RBC (Bld) [#/Vol] 4.51 10*6/uL Low 4.6-6.2 [facility] Comment on above: Order Comment: 109.1 Performed By: #### L 100.0100 ####[facility] [address] [place], [address] RDW SD 42.3 fl Normal 35.1-43.9 [facility] Comment on above: Order Comment: 109.1 Performed By: #### L 100.0100 ####[facility] [address] [place], [place], [address]([phone] WBC (Bld) [#/Vol] 10.0 10*3/uL Normal 4.4-11.0 [facility] Comment on above: Order Comment: 109.1 Performed By: #### L 100.0100 ####[facility] [address] [place], [address] Eosinophil percentageOrdered By: Renard Burgos on 07-15-2024 Eosinophils/100 WBC (Bld) 1.2 % 0-5 [facility] Erythrocyte distribution wid th ratioOrdered By: Renard Burgos on 07-15-2024 Erythrocyte distribution width (RBC) [Ratio] 12.9 % 11.6-14.6 [facility] Erythrocyte distribution wid th standard deviationOrdered By: Renard Burgos on 07-15-2024 Erythrocyte distribution width (RBC) [Entitic vol] 42.3 fL 35.1-43.9 [facility] Erythrocyte distribution width (RBC) [Ratio] 42.3 fl 35.1-43.9 [facility] Hematocrit Auto (Bld) [Volum e fraction]Ordered By: Renard Burgos on 07-15-2024 Hematocrit (Bld) [Volume fraction] 41.0 % 40-54 [facility] Hemoglobin measurementOrdere d By: Renard Burgos on 07-15-2024 Hemoglobin (Bld) [Mass/Vol] 13.4 g/dL 13.0-16.5 [facility] Immature granulocytes/100 WB C Auto (Bld)Ordered By: Renard Burgos on 07-15-2024 Immature granulocytes/100 WBC (Bld) 0.300 % 0.0-0.9 [facility] Comment on above: IG% - Immature Granu locytes (promyelocytes, myelocytes and metamyelocytes) > 1% indicates that a LEFT SHIFT is Present. Lymphocytes Auto (Unsp spec) [#/Vol]Ordered By: Renard Burgos on 07-15-2024 Lymphocytes (Bld) [#/Vol] 2.10 10*3/uL 0.83-4.51 [facility] Lymphocytes/100 WBC Auto (Un sp spec)Ordered By: Renard Burgos on 07-15-2024 Lymphocytes/100 WBC (Bld) 21.0 % 19-41 [facility] MCV (mean corpuscular volume ) determinationOrdered By: Renard Burgos on 07-15-2024 MCV (RBC) [Entitic vol] 90.9 fL 80-94 [facility] Mean corpuscular hemoglobin (MCH) determinationOrdered By: Renard Burgos on 07-15-2024 MCH (RBC) [Entitic mass] 29.7 pg 27.0-32.0 [facility] Mean corpuscular hemoglobin concentration (MCHC) determinationOrdered By: Renard Burgos on 07-15-2024 MCHC (RBC) [Mass/Vol] 32.7 g/dL 32-36 [facility] Mean platelet volume determi nationOrdered By: Renard Burgos on 07-15-2024 Platelet mean volume (Bld) [Entitic vol] 11.4 fL 6.2-12.0 [facility] Monocyte percentageOrdered B y: Renard Burgos on 07-15-2024 Monocytes/100 WBC (Bld) 7.6 % 0-10 [facility] Neutrophil percentageOrdered By: Renard Burgos on 07-15-2024 Neutrophils/100 WBC (Bld) 69.4 % 47-70 [facility] Nucleated red blood cell per centageOrdered By: Renard Burgos on 07-15-2024 Nucleated RBC/100 WBC (Bld) [Ratio] 0 % 0-5 [facility] Platelet countOrdered By: Garrick Bhatt on 07-15-2024 Platelets (Bld) [#/Vol] 206 10*3/uL 150-450 [facility] RBC Auto (Bld) [#/Vol]Ordere d By: Renard Burgos on 07-15-2024 RBC (Bld) [#/Vol] 4.51 10*6/uL Low 4.6-6.2 [facility] White blood cell (WBC) count Ordered By: Renard Burgos on 07-15-2024 WBC (Bld) [#/Vol] 10.0 10*3/uL 4.4-11.0 [facility] Absolute lymphocyte countOrd ered By: Renard Burgos on 07-08-2024 Lymphocytes Auto (Unsp spec) [#/Vol] 2.02 10*3/uL 0.83-4.51 [facility] Absolute neutrophil countOrd ered By: Renard Burgos on 07-08-2024 Neutrophils (Bld) [#/Vol] 7.2 10*3/uL 2.0-7.7 [facility] Automated lymphocyte count a s percentage of total leukocytesOrdered By: Renard Burgos on 07-08-2024 Lymphocytes/100 WBC Auto (Unsp spec) 19.7 % 19-41 [facility] Basophil percentageOrdered B y: Renard Burgos on 07-08-2024 Basophils/100 WBC (Bld) 0.6 % 0-1 [facility] CBC W/Diff, Automatedon 06-29 0-2024 Absolute Lymph 2.02 X10 3/uL Normal 0.83-4.51 [facility] Comment on above: Order Comment: 109-1 Performed By: #### L 100.0100 ####[facility] [address] [place], [address] Absolute Neut 7.2 X10 3/uL Normal 2.0-7.7 [facility] Comment on above: Order Comment: 109-1 Performed By: #### L 100.0100 ####[facility] [address] [place], [address] Basophils/100 WBC (Bld) 0.6 % Normal 0-1 [facility] Comment on above: Order Comment: 109-1 Performed By: #### L 100.0100 ####[facility] [address] [place], [address] Eosinophils/100 WBC (Bld) 1.5 % Normal 0-5 [facility] Comment on above: Order Comment: 109-1 Performed By: #### L 100.0100 ####[facility] [address] [place], [address] Erythrocyte distribution width (RBC) [Ratio] 12.9 % Normal 11.6-14.6 [facility] Comment on above: Order Comment: 109-1 Performed By: #### L 100.0100 ####[facility] [address] [place], [address] Hematocrit (Bld) [Volume fraction] 40.6 % Normal 40-54 [facility] Comment on above: Order Comment: 109-1 Performed By: #### L 100.0100 ####[facility] [address] [place], [address] Hemoglobin (Bld) [Mass/Vol] 13.6 g/dL Normal 13.0-16.5 [facility] Comment on above: Order Comment: 109-1 Performed By: #### L 100.0100 ####[facility] [address] [place], [address] IG% 0.500 Normal 0.0-0.9 [facility] Comment on above: Order Comment: 109-1 Result Comment: IG% - Immature Granulocytes (promyelocytes, myelocytes andmetamyelocytes) > 1% indicates that a LEFT SHIFT is Present. Performed By: #### L 100.0100 ####[facility] [address] [place], [address] Lymphocytes/100 WBC (Bld) 19.7 % Normal 19-41 [facility] Comment on above: Order Comment: 109-1 Performed By: #### L 100.0100 ####[facility] [address] [place], [address] MCH (RBC) [Entitic mass] 30.5 pg Normal 27.0-32.0 [facility] Comment on above: Order Comment: 109-1 Performed By: #### L 100.0100 ####[facility] [address] [place], [address] MCHC (RBC) [Mass/Vol] 33.5 g/dL Normal 32-36 [facility] Comment on above: Order Comment: 109-1 Performed By: #### L 100.0100 ####[facility] [address] [place], [address] MCV (RBC) [Entitic vol] 91.0 fL Normal 80-94 [facility] Comment on above: Order Comment: 109-1 Performed By: #### L 100.0100 ####[facility] [address] [place], [address] Monocytes/100 WBC (Bld) 7.4 % Normal 0-10 [facility] Comment on above: Order Comment: 109-1 Performed By: #### L 100.0100 ####[facility] [address] [place], [address] Neutrophils/100 WBC (Bld) 70.3 % High 47-70 [facility] Comment on above: Order Comment: 109-1 Performed By: #### L 100.0100 ####[facility] [address] [place], [address] Nucleated RBC (Bld) [#/Vol] 0 10*3/uL Normal 0-5 [facility] Comment on above: Order Comment: 109-1 Performed By: #### L 100.0100 ####[facility] [address] [place], [address] Platelet mean volume (Bld) [Entitic vol] 11.1 fL Normal 6.2-12.0 [facility] Comment on above: Order Comment: 109-1 Performed By: #### L 100.0100 ####[facility] [address] [place], [address] Platelets (Bld) [#/Vol] 207 10*3/uL Normal 150-450 [facility] Comment on above: Order Comment: 109-1 Performed By: #### L 100.0100 ####[facility] [address] [place], [address] RBC (Bld) [#/Vol] 4.46 10*6/uL Low 4.6-6.2 [facility] Comment on above: Order Comment: 109-1 Performed By: #### L 100.0100 ####[facility] [address] [place], [address] RDW SD 42.5 fl Normal 35.1-43.9 [facility] Comment on above: Order Comment: 109-1 Performed By: #### L 100.0100 ####[facility] [address] [place], [address] WBC (Bld) [#/Vol] 10.3 10*3/uL Normal 4.4-11.0 [facility] Comment on above: Order Comment: 109-1 Performed By: #### L 100.0100 ####[facility] [address] [place], [address] Eosinophil percentageOrdered By: Renard Burgos on 07-08-2024 Eosinophils/100 WBC (Bld) 1.5 % 0-5 [facility] Erythrocyte distribution wid th ratioOrdered By: Renard Burgos on 07-08-2024 Erythrocyte distribution width (RBC) [Ratio] 12.9 % 11.6-14.6 [facility] Erythrocyte distribution wid th standard deviationOrdered By: Renard Burgos on 07-08-2024 Erythrocyte distribution width (RBC) [Entitic vol] 42.5 fL 35.1-43.9 [facility] Erythrocyte distribution width (RBC) [Ratio] 42.5 fl 35.1-43.9 [facility] Hematocrit Auto (Bld) [Volum e fraction]Ordered By: Renard Burgos on 07-08-2024 Hematocrit (Bld) [Volume fraction] 40.6 % 40-54 [facility] Hemoglobin measurementOrdere d By: Renard Burgos on 07-08-2024 Hemoglobin (Bld) [Mass/Vol] 13.6 g/dL 13.0-16.5 [facility] Immature granulocytes/100 WB C Auto (Bld)Ordered By: Renard Burgos on 07-08-2024 Immature granulocytes/100 WBC (Bld) 0.500 % 0.0-0.9 [facility] Comment on above: IG% - Immature Granu locytes (promyelocytes, myelocytes and metamyelocytes) > 1% indicates that a LEFT SHIFT is Present. Lymphocytes Auto (Unsp spec) [#/Vol]Ordered By: Renard Burgos on 07-08-2024 Lymphocytes (Bld) [#/Vol] 2.02 10*3/uL 0.83-4.51 [facility] Lymphocytes/100 WBC Auto (Un sp spec)Ordered By: Renard Burgos on 07-08-2024 Lymphocytes/100 WBC (Bld) 19.7 % 19-41 [facility] MCV (mean corpuscular volume ) determinationOrdered By: Renard Burgos on 07-08-2024 MCV (RBC) [Entitic vol] 91.0 fL 80-94 [facility] Mean corpuscular hemoglobin (MCH) determinationOrdered By: Renard Burgos on 07-08-2024 MCH (RBC) [Entitic mass] 30.5 pg 27.0-32.0 [facility] Mean corpuscular hemoglobin concentration (MCHC) determinationOrdered By: Renard Burgos on 07-08-2024 MCHC (RBC) [Mass/Vol] 33.5 g/dL 32-36 [facility] Mean platelet volume determi nationOrdered By: Renard Burgos on 07-08-2024 Platelet mean volume (Bld) [Entitic vol] 11.1 fL 6.2-12.0 [facility] Monocyte percentageOrdered B y: Renard Burgos on 07-08-2024 Monocytes/100 WBC (Bld) 7.4 % 0-10 [facility] Neutrophil percentageOrdered By: Renard Burgos on 07-08-2024 Neutrophils/100 WBC (Bld) 70.3 % High 47-70 [facility] Nucleated red blood cell per centageOrdered By: Renard Burgos on 07-08-2024 Nucleated RBC/100 WBC (Bld) [Ratio] 0 % 0-5 [facility] Platelet countOrdered By: Garrick Bhatt on 07-08-2024 Platelets (Bld) [#/Vol] 207 10*3/uL 150-450 [facility] RBC Auto (Bld) [#/Vol]Ordere d By: Renard Burgos on 07-08-2024 RBC (Bld) [#/Vol] 4.46 10*6/uL Low 4.6-6.2 [facility] White blood cell (WBC) count Ordered By: Renard Burgos on 07-08-2024 WBC (Bld) [#/Vol] 10.3 10*3/uL 4.4-11.0 [facility] Absolute lymphocyte countOrd ered By: Renard Burgos on 07-01-2024 Lymphocytes Auto (Unsp spec) [#/Vol] 2.03 10*3/uL 0.83-4.51 [facility] Absolute neutrophil countOrd ered By: Renard Burgos on 07-01-2024 Neutrophils (Bld) [#/Vol] 7.0 10*3/uL 2.0-7.7 [facility] Automated lymphocyte count a s percentage of total leukocytesOrdered By: Renard Burgos on 07-01-2024 Lymphocytes/100 WBC Auto (Unsp spec) 20.3 % 19-41 [facility] Basophil percentageOrdered B y: Renard Burgos on 07-01-2024 Basophils/100 WBC (Bld) 0.6 % 0-1 [facility] CBC W/Diff, Automatedon Absolute Lymph 2.03 X10 3/uL Normal 0.83-4.51 [facility] Comment on above: Order Comment: 109 Performed By: #### L 100.0100 ####[facility] [address] [place], [place], [phone]) Absolute Neut 7.0 X10 3/uL Normal 2.0-7.7 [facility] Comment on above: Order Comment: 109 Performed By: #### L 100.0100 ####[facility] [address] [place], [address] Basophils/100 WBC (Bld) 0.6 % Normal 0-1 [facility] Comment on above: Order Comment: 109 Performed By: #### L 100.0100 ####[facility] [address] [place], [address] Eosinophils/100 WBC (Bld) 1.3 % Normal 0-5 [facility] Comment on above: Order Comment: 109 Performed By: #### L 100.0100 ####[facility] [address] [place], [address] Erythrocyte distribution width (RBC) [Ratio] 13.1 % Normal 11.6-14.6 [facility] Comment on above: Order Comment: 109 Performed By: #### L 100.0100 ####[facility] [address] [place], [address] Hematocrit (Bld) [Volume fraction] 41.7 % Normal 40-54 [facility] Comment on above: Order Comment: 109 Performed By: #### L 100.0100 ####[facility] [address] [place], [address] Hemoglobin (Bld) [Mass/Vol] 13.6 g/dL Normal 13.0-16.5 [facility] Comment on above: Order Comment: 109 Performed By: #### L 100.0100 ####[facility] [address] [place], [address] IG% 0.500 Normal 0.0-0.9 [facility] Comment on above: Order Comment: 109 Result Comment: IG% - Immature Granulocytes (promyelocytes, myelocytes andmetamyelocytes) > 1% indicates that a LEFT SHIFT is Present. Performed By: #### L 100.0100 ####[facility] [address] [place], [address] Lymphocytes/100 WBC (Bld) 20.3 % Normal 19-41 [facility] Comment on above: Order Comment: 109 Performed By: #### L 100.0100 ####[facility] [address] [place], [address] MCH (RBC) [Entitic mass] 29.6 pg Normal 27.0-32.0 [facility] Comment on above: Order Comment: 109 Performed By: #### L 100.0100 ####[facility] [address] [place], [address] MCHC (RBC) [Mass/Vol] 32.6 g/dL Normal 32-36 [facility] Comment on above: Order Comment: 109 Performed By: #### L 100.0100 ####[facility] [address] [place], [address] MCV (RBC) [Entitic vol] 90.8 fL Normal 80-94 [facility] Comment on above: Order Comment: 109 Performed By: #### L 100.0100 ####[facility] [address] [place], [address] Monocytes/100 WBC (Bld) 6.8 % Normal 0-10 [facility] Comment on above: Order Comment: 109 Performed By: #### L 100.0100 ####[facility] [address] [place], [address] Neutrophils/100 WBC (Bld) 70.5 % High 47-70 [facility] Comment on above: Order Comment: 109 Performed By: #### L 100.0100 ####[facility] [address] [place], [address] Nucleated RBC (Bld) [#/Vol] 0 10*3/uL Normal 0-5 [facility] Comment on above: Order Comment: 109 Performed By: #### L 100.0100 ####[facility] [address] [place], [address] Platelet mean volume (Bld) [Entitic vol] 11.0 fL Normal 6.2-12.0 [facility] Comment on above: Order Comment: 109 Performed By: #### L 100.0100 ####[facility] [address] [place], [address] Platelets (Bld) [#/Vol] 208 10*3/uL Normal 150-450 [facility] Comment on above: Order Comment: 109 Performed By: #### L 100.0100 ####[facility] [address] [place], [address] RBC (Bld) [#/Vol] 4.59 10*6/uL Low 4.6-6.2 [facility] Comment on above: Order Comment: 109 Performed By: #### L 100.0100 ####[facility] [address] [place], [address] RDW SD 42.8 fl Normal 35.1-43.9 [facility] Comment on above: Order Comment: 109 Performed By: #### L 100.0100 ####[facility] [address] [place], [address] WBC (Bld) [#/Vol] 10.0 10*3/uL Normal 4.4-11.0 [facility] Comment on above: Order Comment: 109 Performed By: #### L 100.0100 ####[facility] [address] [place], [address] Eosinophil percentageOrdered By: Renard Burgos on 07-01-2024 Eosinophils/100 WBC (Bld) 1.3 % 0-5 [facility] Erythrocyte distribution wid th ratioOrdered By: Renard Burgos on 07-01-2024 Erythrocyte distribution width (RBC) [Ratio] 13.1 % 11.6-14.6 [facility] Erythrocyte distribution wid th standard deviationOrdered By: Renard Burgos on 07-01-2024 Erythrocyte distribution width (RBC) [Entitic vol] 42.8 fL 35.1-43.9 [facility] Erythrocyte distribution width (RBC) [Ratio] 42.8 fl 35.1-43.9 [facility] Hematocrit Auto (Bld) [Volum e fraction]Ordered By: Renard Burgos on 07-01-2024 Hematocrit (Bld) [Volume fraction] 41.7 % 40-54 [facility] Hemoglobin measurementOrdere d By: Renard Burgos on 07-01-2024 Hemoglobin (Bld) [Mass/Vol] 13.6 g/dL 13.0-16.5 [facility] Immature granulocytes/100 WB C Auto (Bld)Ordered By: Renard Burgos on 07-01-2024 Immature granulocytes/100 WBC (Bld) 0.500 % 0.0-0.9 [facility] Comment on above: IG% - Immature Granu locytes (promyelocytes, myelocytes and metamyelocytes) > 1% indicates that a LEFT SHIFT is Present. Lymphocytes Auto (Unsp spec) [#/Vol]Ordered By: Renard Burgos on 07-01-2024 Lymphocytes (Bld) [#/Vol] 2.03 10*3/uL 0.83-4.51 [facility] Lymphocytes/100 WBC Auto (Un sp spec)Ordered By: Renard Burgos on 07-01-2024 Lymphocytes/100 WBC (Bld) 20.3 % 19-41 [facility] MCV (mean corpuscular volume ) determinationOrdered By: Renard Burgos on 07-01-2024 MCV (RBC) [Entitic vol] 90.8 fL 80-94 [facility] Mean corpuscular hemoglobin (MCH) determinationOrdered By: Renard Burgos on 07-01-2024 MCH (RBC) [Entitic mass] 29.6 pg 27.0-32.0 [facility] Mean corpuscular hemoglobin concentration (MCHC) determinationOrdered By: Renard Burgos on 07-01-2024 MCHC (RBC) [Mass/Vol] 32.6 g/dL 32-36 [facility] Mean platelet volume determi nationOrdered By: Renard Burgos on 07-01-2024 Platelet mean volume (Bld) [Entitic vol] 11.0 fL 6.2-12.0 [facility] Monocyte percentageOrdered B y: Renard Burgos on 07-01-2024 Monocytes/100 WBC (Bld) 6.8 % 0-10 [facility] Neutrophil percentageOrdered By: Renard Burgos on 07-01-2024 Neutrophils/100 WBC (Bld) 70.5 % High 47-70 [facility] Nucleated red blood cell per centageOrdered By: Renard Burgos on 07-01-2024 Nucleated RBC/100 WBC (Bld) [Ratio] 0 % 0-5 [facility] Platelet countOrdered By: Garrick Bhatt on 07-01-2024 Platelets (Bld) [#/Vol] 208 10*3/uL 150-450 [facility] RBC Auto (Bld) [#/Vol]Ordere d By: Renard Burgos on 07-01-2024 RBC (Bld) [#/Vol] 4.59 10*6/uL Low 4.6-6.2 [facility] White blood cell (WBC) count Ordered By: Renard Burgos on 07-01-2024 WBC (Bld) [#/Vol] 10.0 10*3/uL 4.4-11.0 [facility] Urine Cultureon 06-30-2024 URC Normal [facility] Comment on above: Performed By: #### M 100.2200, L400.0001 ####[facility] [address] [place], [address] Bilirubin Test strip Ql (U)O rdered By: Renard Burgos on 06-27-2024 Bilirubin Ql (U) Negative Negative [facility] Epithelial cells.squamous LM Ql (Urine sed)Ordered By: Renard Burgos on 06-27-2024 Epithelial cells.squamous LM.HPF (Urine sed) [#/Area] 0 /[HPF] 0-5 [facility] Glucose Ql (U)Ordered By: Garrick Bhatt on 06-27-2024 Urine Glucose (UA) Normal mg/dl Normal [facility] Ketones Test strip Ql (U)Ord ered By: Renard Burgos on 06-27-2024 Ketones Ql (U) Negative Negative [facility] Microscopic analysis of urin e for red blood cells (RBC)Ordered By: Renard Burgos on 06-27-2024 Microscopic analysis of urine for red blood cells (RBC) 0 SEEN /hpf 0-5 [facility] Urine RBC 0 SEEN /hpf 0-5 [facility] Mucus LM Ql (Urine sed)Order ed By: Renard Burgos on 06-27-2024 Mucus Ql (Urine sed) 0 SEEN /hpf [facility] Nitrite Test strip Ql (U)Ord ered By: Renard Burgos on 06-27-2024 Nitrite Ql (U) Negative Negative [facility] Protein Test strip Ql (U)Ord ered By: Renard Burgos on 06-27-2024 Protein Ql (U) 15 mg/dl High Negative [facility] Squamous epithelial cells de tection in urine sediment by light microscopyOrdered By: Renard Burgos on 06-27-2024 Epithelial cells.squamous LM Ql (Urine sed) 0 SEEN /hpf 0-5 [facility] Urinalysis, Completeon 06-27 RBC 0 SEEN Normal 0-5 [facility] Comment on above: Order Comment: ARCHANA TER SPECIMEN Performed By: #### M 100.2200, L400.0001 ####[facility] [address] [place], [place], [id number] Urine blood detectionOrdered By: Renard Burgos on 06-27-2024 Urine Occult Blood Negative Negative [facility] Urine clarityOrdered By: Lyubov Burgos on 06-27-2024 Clarity (U) Clear Clear [facility] Urine color determinationOrd ered By: Renard Burgos on 06-27-2024 Color (U) Yellow Yellow [facility] Urine cultureOrdered By: Lyubov Burgos on 06-27-2024 Bacteria identified Cx Nom (U) Staphylococcus warneri Abnormal [facility] Bacteria identified Cx Nom (U) Aerococcus viridans. Abnormal [facility] Bacteria identified Cx Nom (U) Presumptive C albicans Abnormal [facility] Bacteria identified Cx Nom (U) Staphylococcus warneri Abnormal [facility] Bacteria identified Cx Nom (U) Aerococcus viridans. Abnormal [facility] Bacteria identified Cx Nom (U) Presumptive C albicans Abnormal [facility] Urine glucose detectionOrder ed By: Renard Burgos on 06-27-2024 Glucose Ql (U) Normal mg/dl Normal [facility] Urine leukocyte esterase det ection by dipstickOrdered By: Renard Burgos on 06-27-2024 Leukocyte esterase Test strip Ql (U) Negative Negative [facility] Urine pHOrdered By: Renard ocampo on 06-27-2024 pH (U) 7.0 [pH] 5.0 - 8.0 [facility] Urine sediment bacteria coun t by microscopy (number/high power field)Ordered By: Renard Burgos on 06-27-2024 Bacteria LM.HPF (Urine sed) [#/Area] 0 /[HPF] None Seen [facility] Urine specific gravity measu rementOrdered By: Renard Burgos on 06-27-2024 Specific gravity (U) [Rel density] 1.010 1.002-1.030 [facility] Urine urobilinogen measureme ntOrdered By: Renard Burgos on 06-27-2024 Urobilinogen Ql (U) 4 mg/dl High Normal [facility] Urobilinogen Ql (U)Ordered B y: Renard Burgos on 06-27-2024 Urobilinogen (U) [Mass/Vol] 4 mg/dL High Normal [facility] White blood cell countOrdere d By: Renard Burgos on 06-27-2024 Urine WBC 0 SEEN /hpf 0-5 [facility] White blood cell count 0 SEEN /hpf 0-[address] [facility] [address] CHEST WO IV CONTRASTon CT CHEST WO IV CONTRAST [facility] 1955 [id number] Exam Date/Time: 06/24/2024 16:30 Procedure: CT CHEST [...] 8:07 AM EST Cough x 2months Normal [facility] CT Chest WO contraston 06-26 Nonspecific groundglass densities are noted in the bilateral lower lobes. 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 [facility] Maria Eugenia Ruiz MD - 06/26/2024 [facility] Name[facility] 1955 [id number] Exam Date/Time: 06/24/2024 16:30 Procedure: CT CHEST [...] Electronically Signed Date/Time: 06/26/2024 8:07 AM EST [employer] [address] Chest WO contrastOrdered By: Maria Eugenia Ruiz on 06-26-2024 [employer] Work Phone: Absolute lymphocyte countOrd ered By: Renard Burgos on 06-24-2024 Lymphocytes Auto (Unsp spec) [#/Vol] 1.65 10*3/uL 0.83-4.51 [facility] Absolute neutrophil countOrd ered By: Renard Burgos on 06-24-2024 Neutrophils (Bld) [#/Vol] 10.2 10*3/uL High 2.0-7.7 [facility] Automated lymphocyte count a s percentage of total leukocytesOrdered By: Renard Burgos on 06-24-2024 Lymphocytes/100 WBC Auto (Unsp spec) 12.8 % Low 19-41 [facility] Basic Metabolic Profile (BMP )on 06-24-2024 BUN/CRE 24.9 RATIO High 10-20 [facility] Comment on above: Order Comment: 109.1 Performed By: #### L 100.0100, L500.2500 ####[facility] [address] [place], [address] CA,Total 8.3 mg/dL Low 8.5-10.1 [facility] Comment on above: Order Comment: 109.1 Performed By: #### L 100.0100, L500.2500 ####[facility] [address] [place], [address] Chloride [Moles/Vol] 107 mmol/L Normal 98-107 [facility] Comment on above: Order Comment: 109.1 Performed By: #### L 100.0100, L500.2500 ####[facility] [address] [place], [address] CO2 [Moles/Vol] 24.0 mmol/L Normal 21.0-32.0 [facility] Comment on above: Order Comment: 109.1 Performed By: #### L 100.0100, L500.2500 ####[facility] [address] [place], [address] Creatinine [Mass/Vol] 0.60 mg/dL Low 0.70-1.30 [facility] Comment on above: Order Comment: 109.1 Result Comment: The validity of the calculated GFR GFRAA in patients over70 years has not been determined. Clinical correlation isessential. Performed By: #### L 100.0100, L500.2500 ####[facility] [address] [place], [address] EST GFR - AA 172 mL/min Normal >60 [facility] Comment on above: Order Comment: 109.1 Result Comment: Afri can Latvian GFR Calc Performed By: #### L 100.0100, L500.2500 ####[facility] [address] [place], [address] GAP 8 Normal 5-15 [facility] Comment on above: Order Comment: 109.1 Performed By: #### L 100.0100, L500.2500 ####[facility] [address] [place], [address] GFR/1.73 sq M.predicted among non-blacks MDRD (S/P/Bld) [Vol rate/Area] 142 mL/min/{1.73_m2} Normal >60 [facility] Comment on above: Order Comment: 109.1 Result Comment: Non- GFR Calc Performed By: #### L 100.0100, L500.2500 ####[facility] [address] [place], [address] Glucose [Mass/Vol] 101 mg/dL Normal 74-106 [facility] Comment on above: Order Comment: 109.1 Result Comment: Fast ing Glucose result from 100 to 125 mg/dLsuggests IMPAIRED HOMEOSTASIS per A.D.A. criteria. Performed By: #### L 100.0100, L500.2500 ####[facility] [address] [place], [address] Potassium [Moles/Vol] 4.1 mmol/L Normal 3.5-5.1 [facility] Comment on above: Order Comment: 109.1 Performed By: #### L 100.0100, L500.2500 ####[facility] [address] [place], [address] Sodium [Moles/Vol] 139 mmol/L Normal 136-145 [facility] Comment on above: Order Comment: 109.1 Performed By: #### L 100.0100, L500.2500 ####[facility] [address] [place], [address] Urea nitrogen [Mass/Vol] 15 mg/dL Normal 7-18 [facility] Comment on above: Order Comment: 109.1 Performed By: #### L 100.0100, L500.2500 ####[facility] [address] [place], [address] Basophil percentageOrdered B y: Renard uBrgos on 06-24-2024 Basophils/100 WBC (Bld) 0.5 % 0-1 [facility] Blood urea nitrogen (BUN)/cr eatinine ratioOrdered By: Renard Burgos on 06-24-2024 Urea nitrogen/Creatinine [Mass ratio] 24.9 mg/mg High 10-20 [facility] CBC W/Diff, Automatedon 06-02 Absolute Lymph 1.65 X10 3/uL Normal 0.83-4.51 [facility] Comment on above: Order Comment: 109.1 Performed By: #### L 100.0100, L500.2500 ####[facility] [address] [place], [address] Absolute Neut 10.2 X10 3/uL High 2.0-7.7 [facility] Comment on above: Order Comment: 109.1 Performed By: #### L 100.0100, L500.2500 ####[facility] [address] [place], [address] Basophils/100 WBC (Bld) 0.5 % Normal 0-1 [facility] Comment on above: Order Comment: 109.1 Performed By: #### L 100.0100, L500.2500 ####[facility] [address] [place], [address] Eosinophils/100 WBC (Bld) 0.8 % Normal 0-5 [facility] Comment on above: Order Comment: 109.1 Performed By: #### L 100.0100, L500.2500 ####[facility] [address] [place], [address] Erythrocyte distribution width (RBC) [Ratio] 13.2 % Normal 11.6-14.6 [facility] Comment on above: Order Comment: 109.1 Performed By: #### L 100.0100, L500.2500 ####[facility] [address] [place], [address] Hematocrit (Bld) [Volume fraction] 41.8 % Normal 40-54 [facility] Comment on above: Order Comment: 109.1 Performed By: #### L 100.0100, L500.2500 ####[facility] [address] [place], [address] Hemoglobin (Bld) [Mass/Vol] 13.6 g/dL Normal 13.0-16.5 [facility] Comment on above: Order Comment: 109.1 Performed By: #### L 100.0100, L500.2500 ####[facility] [address] [place], [address] IG% 0.500 Normal 0.0-0.9 [facility] Comment on above: Order Comment: 109.1 Result Comment: IG% - Immature Granulocytes (promyelocytes, myelocytes andmetamyelocytes) > 1% indicates that a LEFT SHIFT is Present. Performed By: #### L 100.0100, L500.2500 ####[facility] [address] [place], [address] Lymphocytes/100 WBC (Bld) 12.8 % Low 19-41 [facility] Comment on above: Order Comment: 109.1 Performed By: #### L 100.0100, L500.2500 ####[facility] [address] [place], [address] MCH (RBC) [Entitic mass] 30.2 pg Normal 27.0-32.0 [facility] Comment on above: Order Comment: 109.1 Performed By: #### L 100.0100, L500.2500 ####[facility] [address] [place], [address] MCHC (RBC) [Mass/Vol] 32.5 g/dL Normal 32-36 [facility] Comment on above: Order Comment: 109.1 Performed By: #### L 100.0100, L500.2500 ####[facility] [address] [place], [address] MCV (RBC) [Entitic vol] 92.7 fL Normal 80-94 [facility] Comment on above: Order Comment: 109.1 Performed By: #### L 100.0100, L500.2500 ####[facility] [address] [place], [address] Monocytes/100 WBC (Bld) 6.4 % Normal 0-10 [facility] Comment on above: Order Comment: 109.1 Performed By: #### L 100.0100, L500.2500 ####[facility] [address] [place], [address] Neutrophils/100 WBC (Bld) 79.0 % High 47-70 [facility] Comment on above: Order Comment: 109.1 Performed By: #### L 100.0100, L500.2500 ####[facility] [address] [place], [address] Nucleated RBC (Bld) [#/Vol] 0 10*3/uL Normal 0-5 [facility] Comment on above: Order Comment: 109.1 Performed By: #### L 100.0100, L500.2500 ####[facility] [address] [place], [address] Platelet mean volume (Bld) [Entitic vol] 11.3 fL Normal 6.2-12.0 [facility] Comment on above: Order Comment: 109.1 Performed By: #### L 100.0100, L500.2500 ####[facility] [address] [place], [address] Platelets (Bld) [#/Vol] 171 10*3/uL Normal 150-450 [facility] Comment on above: Order Comment: 109.1 Performed By: #### L 100.0100, L500.2500 ####[facility] [address] [place], [address] RBC (Bld) [#/Vol] 4.51 10*6/uL Low 4.6-6.2 [facility] Comment on above: Order Comment: 109.1 Performed By: #### L 100.0100, L500.2500 ####[facility] [address] [place], [address] RDW SD 45.1 fl High 35.1-43.9 [facility] Comment on above: Order Comment: 109.1 Performed By: #### L 100.0100, L500.2500 ####[facility] [address] [place], [address] WBC (Bld) [#/Vol] 12.9 10*3/uL High 4.4-11.0 [facility] Comment on above: Order Comment: 109.1 Performed By: #### L 100.0100, L500.2500 ####[facility] [address] [place], [address] CT Chest WO contraston 06-24 Radiology Study observation (narrative) Estefania smith Carbon dioxide measurementOr dered By: Renard Burgos on 06-24-2024 CO2 [Moles/Vol] 24.0 mmol/L 21.0-32.0 [facility] Chloride measurementOrdered By: Renard Burgos on 06-24-2024 Chloride [Moles/Vol] 107 mmol/L 98-107 [facility] Eosinophil percentageOrdered By: Renard Burgos on 06-24-2024 Eosinophils/100 WBC (Bld) 0.8 % 0-5 [facility] Erythrocyte distribution wid th ratioOrdered By: Renard Burgos on 06-24-2024 Erythrocyte distribution width (RBC) [Ratio] 13.2 % 11.6-14.6 [facility] Erythrocyte distribution wid th standard deviationOrdered By: Renard Burgos on 06-24-2024 Erythrocyte distribution width (RBC) [Entitic vol] 45.1 fL High 35.1-43.9 [facility] Erythrocyte distribution width (RBC) [Ratio] 45.1 fl High 35.1-43.9 [facility] Estimated glomerular filtrat ion rate (GFR) AmericanOrdered By: Renard Burgos on 06-24-2024 Estimated GFR (MDRD) Amer 172 mL/min >60 [facility] Comment on above: GFR Calc Glomerular filtration rate ( GFR) estimationOrdered By: Renard Burgos on 06-24-2024 Estimated GFR (MDRD) Non-Af Amer 142 mL/min >60 [facility] Comment on above: Non- GFR Calc GFR/1.73 sq M.predicted among non-blacks MDRD (S/P/Bld) [Vol rate/Area] 142 mL/min/{1.73_m2} >60 [facility] Comment on above: Non- GFR Calc Glucose measurementOrdered B y: Renard Burgos on 06-24-2024 Glucose [Mass/Vol] 101 mg/dL 74-106 [facility] Comment on above: Fasting Glucose resu lt from 100 to 125 mg/dL suggests IMPAIRED HOMEOSTASIS per A.D.A. criteria. Hematocrit Auto (Bld) [Volum e fraction]Ordered By: Renard Burgos on 06-24-2024 Hematocrit (Bld) [Volume fraction] 41.8 % 40-54 [facility] Hemoglobin measurementOrdere d By: Renard Burgos on 06-24-2024 Hemoglobin (Bld) [Mass/Vol] 13.6 g/dL 13.0-16.5 [facility] Immature granulocytes/100 WB C Auto (Bld)Ordered By: Renard Burgos on 06-24-2024 Immature granulocytes/100 WBC (Bld) 0.500 % 0.0-0.9 [facility] Comment on above: IG% - Immature Granu locytes (promyelocytes, myelocytes and metamyelocytes) > 1% indicates that a LEFT SHIFT is Present. Lymphocytes Auto (Unsp spec) [#/Vol]Ordered By: Renard Burgos on 06-24-2024 Lymphocytes (Bld) [#/Vol] 1.65 10*3/uL 0.83-4.51 [facility] Lymphocytes/100 WBC Auto (Un sp spec)Ordered By: Renard Burgos on 06-24-2024 Lymphocytes/100 WBC (Bld) 12.8 % Low 19-41 [facility] MCV (mean corpuscular volume ) determinationOrdered By: Renard Burgos on 06-24-2024 MCV (RBC) [Entitic vol] 92.7 fL 80-94 [facility] Mean corpuscular hemoglobin (MCH) determinationOrdered By: Renard Burgos on 06-24-2024 MCH (RBC) [Entitic mass] 30.2 pg 27.0-32.0 [facility] Mean corpuscular hemoglobin concentration (MCHC) determinationOrdered By: Renard Burgos on 06-24-2024 MCHC (RBC) [Mass/Vol] 32.5 g/dL 32-36 [facility] Mean platelet volume determi nationOrdered By: Renard Burgos on 06-24-2024 Platelet mean volume (Bld) [Entitic vol] 11.3 fL 6.2-12.0 [facility] Monocyte percentageOrdered B y: Renard Burgos on 06-24-2024 Monocytes/100 WBC (Bld) 6.4 % 0-10 [facility] Neutrophil percentageOrdered By: Renard Burgos on 06-24-2024 Neutrophils/100 WBC (Bld) 79.0 % High 47-70 [facility] Nucleated red blood cell per centageOrdered By: Renard Burgos on 06-24-2024 Nucleated RBC/100 WBC (Bld) [Ratio] 0 % 0-5 [facility] Platelet countOrdered By: Garrick Bhatt on 06-24-2024 Platelets (Bld) [#/Vol] 171 10*3/uL 150-450 [facility] Potassium measurementOrdered By: Renard Burgos on 06-24-2024 Potassium [Moles/Vol] 4.1 mmol/L 3.5-5.1 [facility] RBC Auto (Bld) [#/Vol]Ordere d By: Renard Burgos on 06-24-2024 RBC (Bld) [#/Vol] 4.51 10*6/uL Low 4.6-6.2 [facility] Serum anion gap measurementO rdered By: Renard Burgos on 06-24-2024 Anion gap [Moles/Vol] 8 mmol/L 5-15 [facility] Serum or plasma calcium gordy urement (mass/volume)Ordered By: Renard Burgos on 06-24-2024 Calcium [Mass/Vol] 8.3 mg/dL Low 8.5-10.1 [facility] Serum or plasma creatinine m easurement (mass/volume)Ordered By: Renard Burgos on 06-24-2024 Creatinine [Mass/Vol] 0.60 mg/dL Low 0.70-1.30 [facility] Comment on above: The validity of the calculated GFR & GFRAA in patients over 70 years has not been determined. Clinical correlation is essential. Serum or plasma urea nitroge n measurement (mass/volume)Ordered By: Renard Burgos on 06-24-2024 Urea nitrogen [Mass/Vol] 15 mg/dL 7-18 [facility] Sodium levelOrdered By: Lamine Burgos on 06-24-2024 Sodium [Moles/Vol] 139 mmol/L 136-145 [facility] White blood cell (WBC) count Ordered By: Renard Bugros on 06-24-2024 WBC (Bld) [#/Vol] 12.9 10*3/uL High 4.4-11.0 [facility] Absolute lymphocyte countOrd ered By: Renard Burgos on 06-17-2024 Lymphocytes Auto (Unsp spec) [#/Vol] 2.00 10*3/uL 0.83-4.51 [facility] Absolute neutrophil countOrd ered By: Renard Burgos on 06-17-2024 Neutrophils (Bld) [#/Vol] 5.1 10*3/uL 2.0-7.7 [facility] Automated lymphocyte count a s percentage of total leukocytesOrdered By: Renard Burgos on 06-17-2024 Lymphocytes/100 WBC Auto (Unsp spec) 24.5 % 19-41 [facility] Basophil percentageOrdered B y: Renard Burgos on 06-17-2024 Basophils/100 WBC (Bld) 1.1 % High 0-1 [facility] CBC W/Diff, Automatedon 06-01 Absolute Lymph 2.00 X10 3/uL Normal 0.83-4.51 [facility] Comment on above: Order Comment: 109-1 Performed By: #### L 100.0100 ####[facility] [address] [place], [address] Absolute Neut 5.1 X10 3/uL Normal 2.0-7.7 [facility] Comment on above: Order Comment: 109-1 Performed By: #### L 100.0100 ####[facility] [address] [place], [address] Basophils/100 WBC (Bld) 1.1 % High 0-1 [facility] Comment on above: Order Comment: 109-1 Performed By: #### L 100.0100 ####[facility] [address] [place], [address] Eosinophils/100 WBC (Bld) 3.4 % Normal 0-5 [facility] Comment on above: Order Comment: 109-1 Performed By: #### L 100.0100 ####[facility] [address] [place], [address] Erythrocyte distribution width (RBC) [Ratio] 13.3 % Normal 11.6-14.6 [facility] Comment on above: Order Comment: 109-1 Performed By: #### L 100.0100 ####[facility] [address] [place], [address] Hematocrit (Bld) [Volume fraction] 39.3 % Low 40-54 [facility] Comment on above: Order Comment: 109-1 Performed By: #### L 100.0100 ####[facility] [address] [place], [address] Hemoglobin (Bld) [Mass/Vol] 12.8 g/dL Low 13.0-16.5 [facility] Comment on above: Order Comment: 109-1 Performed By: #### L 100.0100 ####[facility] [address] [place], [address] IG% 0.200 Normal 0.0-0.9 [facility] Comment on above: Order Comment: 109-1 Result Comment: IG% - Immature Granulocytes (promyelocytes, myelocytes andmetamyelocytes) > 1% indicates that a LEFT SHIFT is Present. Performed By: #### L 100.0100 ####[facility] [address] [place], [address] Lymphocytes/100 WBC (Bld) 24.5 % Normal 19-41 [facility] Comment on above: Order Comment: 109-1 Performed By: #### L 100.0100 ####[facility] [address] [place], [address] MCH (RBC) [Entitic mass] 29.6 pg Normal 27.0-32.0 [facility] Comment on above: Order Comment: 109-1 Performed By: #### L 100.0100 ####[facility] [address] [place], [address] MCHC (RBC) [Mass/Vol] 32.6 g/dL Normal 32-36 [facility] Comment on above: Order Comment: 109-1 Performed By: #### L 100.0100 ####[facility] [address] [place], [address] MCV (RBC) [Entitic vol] 90.8 fL Normal 80-94 [facility] Comment on above: Order Comment: 109-1 Performed By: #### L 100.0100 ####[facility] [address] [place], [address] Monocytes/100 WBC (Bld) 8.8 % Normal 0-10 [facility] Comment on above: Order Comment: 109-1 Performed By: #### L 100.0100 ####[facility] [address] [place], [address] Neutrophils/100 WBC (Bld) 62.0 % Normal 47-70 [facility] Comment on above: Order Comment: 109-1 Performed By: #### L 100.0100 ####[facility] [address] [place], [address] Nucleated RBC (Bld) [#/Vol] 0 10*3/uL Normal 0-5 [facility] Comment on above: Order Comment: 109-1 Performed By: #### L 100.0100 ####[facility] [address] [place], [address] Platelet mean volume (Bld) [Entitic vol] 10.9 fL Normal 6.2-12.0 [facility] Comment on above: Order Comment: 109-1 Performed By: #### L 100.0100 ####[facility] [address] [place], [address] Platelets (Bld) [#/Vol] 218 10*3/uL Normal 150-450 [facility] Comment on above: Order Comment: 109-1 Performed By: #### L 100.0100 ####[facility] [address] [place], [address] RBC (Bld) [#/Vol] 4.33 10*6/uL Low 4.6-6.2 [facility] Comment on above: Order Comment: 109-1 Performed By: #### L 100.0100 ####[facility] [address] [place], [address] RDW SD 44.0 fl High 35.1-43.9 [facility] Comment on above: Order Comment: 109-1 Performed By: #### L 100.0100 ####[facility] [address] [place], [address] WBC (Bld) [#/Vol] 8.2 10*3/uL Normal 4.4-11.0 [facility] Comment on above: Order Comment: 109-1 Performed By: #### L 100.0100 ####[facility] [address] [place], [address] Eosinophil percentageOrdered By: Renard Burgos on 06-17-2024 Eosinophils/100 WBC (Bld) 3.4 % 0-5 [facility] Erythrocyte distribution wid th ratioOrdered By: Renard Burgos on 06-17-2024 Erythrocyte distribution width (RBC) [Ratio] 13.3 % 11.6-14.6 [facility] Erythrocyte distribution wid th standard deviationOrdered By: Renard Burgos on 06-17-2024 Erythrocyte distribution width (RBC) [Entitic vol] 44.0 fL High 35.1-43.9 [facility] Erythrocyte distribution width (RBC) [Ratio] 44.0 fl High 35.1-43.9 [facility] Hematocrit Auto (Bld) [Volum e fraction]Ordered By: Renard Burgos on 06-17-2024 Hematocrit (Bld) [Volume fraction] 39.3 % Low 40-54 [facility] Hemoglobin measurementOrdere d By: Renard Burgos on 06-17-2024 Hemoglobin (Bld) [Mass/Vol] 12.8 g/dL Low 13.0-16.5 [facility] Immature granulocytes/100 WB C Auto (Bld)Ordered By: Renard Burgos on 06-17-2024 Immature granulocytes/100 WBC (Bld) 0.200 % 0.0-0.9 [facility] Comment on above: IG% - Immature Granu locytes (promyelocytes, myelocytes and metamyelocytes) > 1% indicates that a LEFT SHIFT is Present. Lymphocytes Auto (Unsp spec) [#/Vol]Ordered By: Renard Burgos on 06-17-2024 Lymphocytes (Bld) [#/Vol] 2.00 10*3/uL 0.83-4.51 [facility] Lymphocytes/100 WBC Auto (Un sp spec)Ordered By: Renard Burgos on 06-17-2024 Lymphocytes/100 WBC (Bld) 24.5 % 19-41 [facility] MCV (mean corpuscular volume ) determinationOrdered By: Renard Burgos on 06-17-2024 MCV (RBC) [Entitic vol] 90.8 fL 80-94 [facility] Mean corpuscular hemoglobin (MCH) determinationOrdered By: Renard Burgos on 06-17-2024 MCH (RBC) [Entitic mass] 29.6 pg 27.0-32.0 [facility] Mean corpuscular hemoglobin concentration (MCHC) determinationOrdered By: Renard Burgos on 06-17-2024 MCHC (RBC) [Mass/Vol] 32.6 g/dL 32-36 [facility] Mean platelet volume determi nationOrdered By: Renard Burgos on 06-17-2024 Platelet mean volume (Bld) [Entitic vol] 10.9 fL 6.2-12.0 [facility] Monocyte percentageOrdered B y: Renard Burgos on 06-17-2024 Monocytes/100 WBC (Bld) 8.8 % 0-10 [facility] Neutrophil percentageOrdered By: Renard Burgos on 06-17-2024 Neutrophils/100 WBC (Bld) 62.0 % 47-70 [facility] Nucleated red blood cell per centageOrdered By: Renard Burgos on 06-17-2024 Nucleated RBC/100 WBC (Bld) [Ratio] 0 % 0-5 [facility] Platelet countOrdered By: Garrick Bhatt on 06-17-2024 Platelets (Bld) [#/Vol] 218 10*3/uL 150-450 [facility] RBC Auto (Bld) [#/Vol]Ordere d By: Renard Burgos on 06-17-2024 RBC (Bld) [#/Vol] 4.33 10*6/uL Low 4.6-6.2 [facility] White blood cell (WBC) count Ordered By: Renard Burgos on 06-17-2024 WBC (Bld) [#/Vol] 8.2 10*3/uL 4.4-11.0 [facility] Absolute lymphocyte countOrd ered By: Renard Burgos on 06-10-2024 Lymphocytes Auto (Unsp spec) [#/Vol] 2.38 10*3/uL 0.83-4.51 [facility] Absolute neutrophil countOrd ered By: Renard Burgos on 06-10-2024 Neutrophils (Bld) [#/Vol] 5.3 10*3/uL 2.0-7.7 [facility] Automated lymphocyte count a s percentage of total leukocytesOrdered By: Renard Burgos on 06-10-2024 Lymphocytes/100 WBC Auto (Unsp spec) 27.5 % 19-41 [facility] Basophil percentageOrdered B y: Renard Burgos on 06-10-2024 Basophils/100 WBC (Bld) 0.7 % 0-1 [facility] CBC W/Diff, Automatedon 06-01 Absolute Lymph 2.38 X10 3/uL Normal 0.83-4.51 [facility] Comment on above: Order Comment: 109.1 Performed By: #### L 100.0100 ####[facility] [address] [place], [address] Absolute Neut 5.3 X10 3/uL Normal 2.0-7.7 [facility] Comment on above: Order Comment: 109.1 Performed By: #### L 100.0100 ####[facility] [address] [place], [address] Basophils/100 WBC (Bld) 0.7 % Normal 0-1 [facility] Comment on above: Order Comment: 109.1 Performed By: #### L 100.0100 ####[facility] [address] [place], [address] Eosinophils/100 WBC (Bld) 0.7 % Normal 0-5 [facility] Comment on above: Order Comment: 109.1 Performed By: #### L 100.0100 ####[facility] [address] [place], [address] Erythrocyte distribution width (RBC) [Ratio] 13.1 % Normal 11.6-14.6 [facility] Comment on above: Order Comment: 109.1 Performed By: #### L 100.0100 ####[facility] [address] [place], [address] Hematocrit (Bld) [Volume fraction] 41.1 % Normal 40-54 [facility] Comment on above: Order Comment: 109.1 Performed By: #### L 100.0100 ####[facility] [address] [place], [address] Hemoglobin (Bld) [Mass/Vol] 13.5 g/dL Normal 13.0-16.5 [facility] Comment on above: Order Comment: 109.1 Performed By: #### L 100.0100 ####[facility] [address] [place], [address] IG% 0.500 Normal 0.0-0.9 [facility] Comment on above: Order Comment: 109.1 Result Comment: IG% - Immature Granulocytes (promyelocytes, myelocytes andmetamyelocytes) > 1% indicates that a LEFT SHIFT is Present. Performed By: #### L 100.0100 ####[facility] [address] [place], [address] Lymphocytes/100 WBC (Bld) 27.5 % Normal 19-41 [facility] Comment on above: Order Comment: 109.1 Performed By: #### L 100.0100 ####[facility] [address] [place], [address] MCH (RBC) [Entitic mass] 30.1 pg Normal 27.0-32.0 [facility] Comment on above: Order Comment: 109.1 Performed By: #### L 100.0100 ####[facility] [address] [place], [address] MCHC (RBC) [Mass/Vol] 32.8 g/dL Normal 32-36 [facility] Comment on above: Order Comment: 109.1 Performed By: #### L 100.0100 ####[facility] [address] [place], [address] MCV (RBC) [Entitic vol] 91.7 fL Normal 80-94 [facility] Comment on above: Order Comment: 109.1 Performed By: #### L 100.0100 ####[facility] [address] [place], [address] Monocytes/100 WBC (Bld) 9.6 % Normal 0-10 [facility] Comment on above: Order Comment: 109.1 Performed By: #### L 100.0100 ####[facility] [address] [place], [address] Neutrophils/100 WBC (Bld) 61.0 % Normal 47-70 [facility] Comment on above: Order Comment: 109.1 Performed By: #### L 100.0100 ####[facility] [address] [place], [address] Nucleated RBC (Bld) [#/Vol] 0 10*3/uL Normal 0-5 [facility] Comment on above: Order Comment: 109.1 Performed By: #### L 100.0100 ####[facility] [address] [place], [address] Platelet mean volume (Bld) [Entitic vol] 11.0 fL Normal 6.2-12.0 [facility] Comment on above: Order Comment: 109.1 Performed By: #### L 100.0100 ####[facility] [address] [place], [address] Platelets (Bld) [#/Vol] 261 10*3/uL Normal 150-450 [facility] Comment on above: Order Comment: 109.1 Performed By: #### L 100.0100 ####[facility] [address] [place], [address] RBC (Bld) [#/Vol] 4.48 10*6/uL Low 4.6-6.2 [facility] Comment on above: Order Comment: 109.1 Performed By: #### L 100.0100 ####[facility] [address] [place], [address] RDW SD 43.2 fl Normal 35.1-43.9 [facility] Comment on above: Order Comment: 109.1 Performed By: #### L 100.0100 ####[facility] [address] [place], [address] WBC (Bld) [#/Vol] 8.6 10*3/uL Normal 4.4-11.0 [facility] Comment on above: Order Comment: 109.1 Performed By: #### L 100.0100 ####[facility] [address] [place], [address] Eosinophil percentageOrdered By: Renard Burgos on 06-10-2024 Eosinophils/100 WBC (Bld) 0.7 % 0-5 [facility] Erythrocyte distribution wid th ratioOrdered By: Renard Burgos on 06-10-2024 Erythrocyte distribution width (RBC) [Ratio] 13.1 % 11.6-14.6 [facility] Erythrocyte distribution wid th standard deviationOrdered By: Renard Burgos on 06-10-2024 Erythrocyte distribution width (RBC) [Entitic vol] 43.2 fL 35.1-43.9 [facility] Erythrocyte distribution width (RBC) [Ratio] 43.2 fl 35.1-43.9 [facility] Hematocrit Auto (Bld) [Volum e fraction]Ordered By: Renard Burgos on 06-10-2024 Hematocrit (Bld) [Volume fraction] 41.1 % 40-54 [facility] Hemoglobin measurementOrdere d By: Renard Burgos on 06-10-2024 Hemoglobin (Bld) [Mass/Vol] 13.5 g/dL 13.0-16.5 [facility] Immature granulocytes/100 WB C Auto (Bld)Ordered By: Renard Burgos on 06-10-2024 Immature granulocytes/100 WBC (Bld) 0.500 % 0.0-0.9 [facility] Comment on above: IG% - Immature Granu locytes (promyelocytes, myelocytes and metamyelocytes) > 1% indicates that a LEFT SHIFT is Present. Lymphocytes Auto (Unsp spec) [#/Vol]Ordered By: Renard Burgos on 06-10-2024 Lymphocytes (Bld) [#/Vol] 2.38 10*3/uL 0.83-4.51 [facility] Lymphocytes/100 WBC Auto (Un sp spec)Ordered By: Renard Burgos on 06-10-2024 Lymphocytes/100 WBC (Bld) 27.5 % 19-41 [facility] MCV (mean corpuscular volume ) determinationOrdered By: Renard Burgos on 06-10-2024 MCV (RBC) [Entitic vol] 91.7 fL 80-94 [facility] Mean corpuscular hemoglobin (MCH) determinationOrdered By: Renard Burgos on 06-10-2024 MCH (RBC) [Entitic mass] 30.1 pg 27.0-32.0 [facility] Mean corpuscular hemoglobin concentration (MCHC) determinationOrdered By: Renard Burgos on 06-10-2024 MCHC (RBC) [Mass/Vol] 32.8 g/dL 32-36 [facility] Mean platelet volume determi nationOrdered By: Renard Burgos on 06-10-2024 Platelet mean volume (Bld) [Entitic vol] 11.0 fL 6.2-12.0 [facility] Monocyte percentageOrdered B y: Renard Burgos on 06-10-2024 Monocytes/100 WBC (Bld) 9.6 % 0-10 [facility] Neutrophil percentageOrdered By: Renard Burgos on 06-10-2024 Neutrophils/100 WBC (Bld) 61.0 % 47-70 [facility] Nucleated red blood cell per centageOrdered By: Renard Burgos on 06-10-2024 Nucleated RBC/100 WBC (Bld) [Ratio] 0 % 0-5 [facility] Platelet countOrdered By: Garrick Bhatt on 06-10-2024 Platelets (Bld) [#/Vol] 261 10*3/uL 150-450 [facility] RBC Auto (Bld) [#/Vol]Ordere d By: Renard Burgos on 06-10-2024 RBC (Bld) [#/Vol] 4.48 10*6/uL Low 4.6-6.2 [facility] Urine Cultureon 06-10-2024 URC Normal [facility] Comment on above: Performed By: #### M 100.2200, L400.0001 ####[facility] [address] [place], [place], [phone] White blood cell (WBC) count Ordered By: Renard Burgos on 06-10-2024 WBC (Bld) [#/Vol] 8.6 10*3/uL 4.4-11.0 [facility] Bilirubin Test strip Ql (U)O rdered By: Renard Burgos on 06-07-2024 Bilirubin Ql (U) Negative Negative [facility] CBC-Complete Blood Cnt No Di ffon 06-07-2024 Erythrocyte distribution width (RBC) [Ratio] 13.0 % Normal 11.6-14.6 [facility] Comment on above: Order Comment: 109-1 Performed By: #### L 100.0500 ####[facility] [address] [place], [address] Hematocrit (Bld) [Volume fraction] 39.3 % Low 40-54 [facility] Comment on above: Order Comment: 109-1 Performed By: #### L 100.0500 ####[facility] [address] [place], [address] Hemoglobin (Bld) [Mass/Vol] 13.0 g/dL Normal 13.0-16.5 [facility] Comment on above: Order Comment: 109-1 Performed By: #### L 100.0500 ####[facility] [address] [place], [address] MCH (RBC) [Entitic mass] 30.2 pg Normal 27.0-32.0 [facility] Comment on above: Order Comment: 109-1 Performed By: #### L 100.0500 ####[facility] [address] [place], [address] MCHC (RBC) [Mass/Vol] 33.1 g/dL Normal 32-36 [facility] Comment on above: Order Comment: 109-1 Performed By: #### L 100.0500 ####[facility] [address] [place], [address] MCV (RBC) [Entitic vol] 91.2 fL Normal 80-94 [facility] Comment on above: Order Comment: 109-1 Performed By: #### L 100.0500 ####[facility] [address] [place], [address] Platelet mean volume (Bld) [Entitic vol] 10.8 fL Normal 6.2-12.0 [facility] Comment on above: Order Comment: 109-1 Performed By: #### L 100.0500 ####[facility] [address] [place], [address] Platelets (Bld) [#/Vol] 251 10*3/uL Normal 150-450 [facility] Comment on above: Order Comment: 109-1 Performed By: #### L 100.0500 ####[facility] [address] [place], [address] RBC (Bld) [#/Vol] 4.31 10*6/uL Low 4.6-6.2 [facility] Comment on above: Order Comment: 109-1 Performed By: #### L 100.0500 ####[facility] [address] [place], [address] RDW SD 43.7 fl Normal 35.1-43.9 [facility] Comment on above: Order Comment: 109-1 Performed By: #### L 100.0500 ####[facility] [address] [place], [address] WBC (Bld) [#/Vol] 9.9 10*3/uL Normal 4.4-11.0 [facility] Comment on above: Order Comment: 109-1 Performed By: #### L 100.0500 ####[facility] [address] [place], [address] Epithelial cells.squamous LM Ql (Urine sed)Ordered By: Renard Burgos on 06-07-2024 Epithelial cells.squamous LM.HPF (Urine sed) [#/Area] 0 /[HPF] 0-5 [facility] Erythrocyte distribution wid th ratioOrdered By: Renard Burgos on 06-07-2024 Erythrocyte distribution width (RBC) [Ratio] 13.0 % 11.6-14.6 [facility] Erythrocyte distribution wid th standard deviationOrdered By: Renard Burgos on 06-07-2024 Erythrocyte distribution width (RBC) [Entitic vol] 43.7 fL 35.1-43.9 [facility] Erythrocyte distribution width (RBC) [Ratio] 43.7 fl 35.1-43.9 [facility] Glucose Ql (U)Ordered By: Garrick Bhatt on 06-07-2024 Urine Glucose (UA) Normal mg/dl Normal [facility] Hematocrit Auto (Bld) [Volum e fraction]Ordered By: Renard Burgos on 06-07-2024 Hematocrit (Bld) [Volume fraction] 39.3 % Low 40-54 [facility] Hemoglobin measurementOrdere d By: Renard Burgos on 06-07-2024 Hemoglobin (Bld) [Mass/Vol] 13.0 g/dL 13.0-16.5 [facility] Ketones Test strip Ql (U)Ord ered By: Renard Burgos on 06-07-2024 Ketones Ql (U) Negative Negative [facility] MCV (mean corpuscular volume ) determinationOrdered By: Renard Burgos on 06-07-2024 MCV (RBC) [Entitic vol] 91.2 fL 80-94 [facility] Mean corpuscular hemoglobin (MCH) determinationOrdered By: Renard Burgos on 06-07-2024 MCH (RBC) [Entitic mass] 30.2 pg 27.0-32.0 [facility] Mean corpuscular hemoglobin concentration (MCHC) determinationOrdered By: Renard Burgos on 06-07-2024 MCHC (RBC) [Mass/Vol] 33.1 g/dL 32-36 [facility] Mean platelet volume determi nationOrdered By: Renard Burgos on 06-07-2024 Platelet mean volume (Bld) [Entitic vol] 10.8 fL 6.2-12.0 [facility] Microscopic analysis of urin e for red blood cells (RBC)Ordered By: Renard Burgos on 06-07-2024 Microscopic analysis of urine for red blood cells (RBC) 0 SEEN /hpf 0-5 [facility] Urine RBC 0 SEEN /hpf 0-5 [facility] Mucus LM Ql (Urine sed)Order ed By: Renard Burgos on 06-07-2024 Mucus Ql (Urine sed) 0 SEEN /hpf [facility] Nitrite Test strip Ql (U)Ord ered By: Renard Burgos on 06-07-2024 Nitrite Ql (U) Negative Negative [facility] Platelet countOrdered By: Garrick Bhatt on 06-07-2024 Platelets (Bld) [#/Vol] 251 10*3/uL 150-450 [facility] Protein Test strip Ql (U)Ord ered By: Renard Burgos on 06-07-2024 Protein Ql (U) 15 mg/dl High Negative [facility] RBC Auto (Bld) [#/Vol]Ordere d By: Renard Burgos on 06-07-2024 RBC (Bld) [#/Vol] 4.31 10*6/uL Low 4.6-6.2 [facility] Squamous epithelial cells de tection in urine sediment by light microscopyOrdered By: Renard Burgos on 06-07-2024 Epithelial cells.squamous LM Ql (Urine sed) 0-5 SEEN /hpf 0-5 [facility] Urinalysis, Completeon 06-07 Mucus Ql (Urine sed) 0 SEEN Normal [facility] Comment on above: Order Comment: CLEAN CATCH Performed By: #### M 100.2200, L400.0001 ####[facility] [address] [place], [address] Urine blood detectionOrdered By: Renard Burgos on 06-07-2024 Urine Occult Blood Negative Negative [facility] Urine clarityOrdered By: Lyubov Burgos on 06-07-2024 Clarity (U) Clear Clear [facility] Urine color determinationOrd ered By: Renard Burgos on 06-07-2024 Color (U) Yellow Yellow [facility] Urine cultureOrdered By: Lyubov Burgos on 06-07-2024 Bacteria identified Cx Nom (U) Pseudomonas aeruginosa Abnormal [facility] Bacteria identified Cx Nom (U) Pseudomonas aeruginosa Abnormal [facility] Urine glucose detectionOrder ed By: Renard Burgos on 06-07-2024 Glucose Ql (U) Normal mg/dl Normal [facility] Urine leukocyte esterase det ection by dipstickOrdered By: Renard Burgos on 06-07-2024 Leukocyte esterase Test strip Ql (U) Negative Negative [facility] Urine pHOrdered By: Renard ocampo on 06-07-2024 pH (U) 7.0 [pH] 5.0 - 8.0 [facility] Urine sediment bacteria coun t by microscopy (number/high power field)Ordered By: Renard Burgos on 06-07-2024 Bacteria LM.HPF (Urine sed) [#/Area] 2 /[HPF] None Seen [facility] Urine sediment yeast count b y microscopy (number/high powered field)Ordered By: Renard Burgos on 06-07-2024 Yeast LM.HPF (Urine sed) [#/Area] 1 /[HPF] None Seen [facility] Urine specific gravity measu rementOrdered By: Renard Burgos on 06-07-2024 Specific gravity (U) [Rel density] 1.010 1.002-1.030 [facility] Urine urobilinogen measureme ntOrdered By: Renard Burgos on 06-07-2024 Urobilinogen Ql (U) 1 mg/dl High Normal [facility] Urobilinogen Ql (U)Ordered B y: Renard Burgos on 06-07-2024 Urobilinogen (U) [Mass/Vol] 1 mg/dL High Normal [facility] White blood cell (WBC) count Ordered By: Renard Burgos on 06-07-2024 WBC (Bld) [#/Vol] 9.9 10*3/uL 4.4-11.0 [facility] White blood cell countOrdere d By: Renard Burgos on 06-07-2024 Urine WBC 0-5 SEEN /hpf 0-5 [facility] White blood cell count 0-5 SEEN /hpf 0-5 [facility] Yeast LM.HPF (Urine sed) [#/ Area]Ordered By: Renard Burgos on 06-07-2024 Urine Yeast 1+ /hpf None Seen [facility] Absolute lymphocyte countOrd ered By: Renard Burgos on 06-03-2024 Lymphocytes Auto (Unsp spec) [#/Vol] 1.94 10*3/uL 0.83-4.51 [facility] Absolute neutrophil countOrd ered By: Renard Burgos on 06-03-2024 Neutrophils (Bld) [#/Vol] 9.5 10*3/uL High 2.0-7.7 [facility] Automated lymphocyte count a s percentage of total leukocytesOrdered By: Renard Burgos on 06-03-2024 Lymphocytes/100 WBC Auto (Unsp spec) 15.7 % Low 19-41 [facility] Basophil percentageOrdered B y: Renard Burgos on 06-03-2024 Basophils/100 WBC (Bld) 0.5 % 0-1 [facility] CBC W/Diff, Automatedon Absolute Lymph 1.94 X10 3/uL Normal 0.83-4.51 [facility] Comment on above: Order Comment: 109-1 Performed By: #### L 100.0100 ####[facility] [address] [place], [address] Absolute Neut 9.5 X10 3/uL High 2.0-7.7 [facility] Comment on above: Order Comment: 109-1 Performed By: #### L 100.0100 ####[facility] [address] [place], [address] Basophils/100 WBC (Bld) 0.5 % Normal 0-1 [facility] Comment on above: Order Comment: 109-1 Performed By: #### L 100.0100 ####[facility] [address] [place], [address] Eosinophils/100 WBC (Bld) 0.3 % Normal 0-5 [facility] Comment on above: Order Comment: 109-1 Performed By: #### L 100.0100 ####[facility] [address] [place], [address] Erythrocyte distribution width (RBC) [Ratio] 13.0 % Normal 11.6-14.6 [facility] Comment on above: Order Comment: 109-1 Performed By: #### L 100.0100 ####[facility] [address] [place], [address] Hematocrit (Bld) [Volume fraction] 40.1 % Normal 40-54 [facility] Comment on above: Order Comment: 109-1 Performed By: #### L 100.0100 ####[facility] [address] [place], [address] Hemoglobin (Bld) [Mass/Vol] 13.2 g/dL Normal 13.0-16.5 [facility] Comment on above: Order Comment: 109-1 Performed By: #### L 100.0100 ####[facility] [address] [place], [address] IG% 0.400 Normal 0.0-0.9 [facility] Comment on above: Order Comment: 109-1 Result Comment: IG% - Immature Granulocytes (promyelocytes, myelocytes andmetamyelocytes) > 1% indicates that a LEFT SHIFT is Present. Performed By: #### L 100.0100 ####[facility] [address] [place], [address] Lymphocytes/100 WBC (Bld) 15.7 % Low 19-41 [facility] Comment on above: Order Comment: 109-1 Performed By: #### L 100.0100 ####[facility] [address] [place], [address] MCH (RBC) [Entitic mass] 30.1 pg Normal 27.0-32.0 [facility] Comment on above: Order Comment: 109-1 Performed By: #### L 100.0100 ####[facility] [address] [place], [address] MCHC (RBC) [Mass/Vol] 32.9 g/dL Normal 32-36 [facility] Comment on above: Order Comment: 109-1 Performed By: #### L 100.0100 ####[facility] [address] [place], [address] MCV (RBC) [Entitic vol] 91.3 fL Normal 80-94 [facility] Comment on above: Order Comment: 109-1 Performed By: #### L 100.0100 ####[facility] [address] [place], [address] Monocytes/100 WBC (Bld) 6.6 % Normal 0-10 [facility] Comment on above: Order Comment: 109-1 Performed By: #### L 100.0100 ####[facility] [address] [place], [address] Neutrophils/100 WBC (Bld) 76.5 % High 47-70 [facility] Comment on above: Order Comment: 109-1 Performed By: #### L 100.0100 ####[facility] [address] [place], [address] Nucleated RBC (Bld) [#/Vol] 0 10*3/uL Normal 0-5 [facility] Comment on above: Order Comment: 109-1 Performed By: #### L 100.0100 ####[facility] [address] [place], [address] Platelet mean volume (Bld) [Entitic vol] 11.1 fL Normal 6.2-12.0 [facility] Comment on above: Order Comment: 109-1 Performed By: #### L 100.0100 ####[facility] [address] [place], [address] Platelets (Bld) [#/Vol] 249 10*3/uL Normal 150-450 [facility] Comment on above: Order Comment: 109-1 Performed By: #### L 100.0100 ####[facility] [address] [place], [address] RBC (Bld) [#/Vol] 4.39 10*6/uL Low 4.6-6.2 [facility] Comment on above: Order Comment: 109-1 Performed By: #### L 100.0100 ####[facility] [address] [place], [address] RDW SD 42.8 fl Normal 35.1-43.9 [facility] Comment on above: Order Comment: 109-1 Performed By: #### L 100.0100 ####[facility] [address] [place], [address] WBC (Bld) [#/Vol] 12.4 10*3/uL High 4.4-11.0 [facility] Comment on above: Order Comment: 109-1 Performed By: #### L 100.0100 ####[facility] [address] [place], [address] Eosinophil percentageOrdered By: Renard Bugros on 06-03-2024 Eosinophils/100 WBC (Bld) 0.3 % 0-5 [facility] Erythrocyte distribution wid th ratioOrdered By: Renard Burgos on 06-03-2024 Erythrocyte distribution width (RBC) [Ratio] 13.0 % 11.6-14.6 [facility] Erythrocyte distribution wid th standard deviationOrdered By: Renard Burgos on 06-03-2024 Erythrocyte distribution width (RBC) [Entitic vol] 42.8 fL 35.1-43.9 [facility] Erythrocyte distribution width (RBC) [Ratio] 42.8 fl 35.1-43.9 [facility] Hematocrit Auto (Bld) [Volum e fraction]Ordered By: Renard Burgos on 06-03-2024 Hematocrit (Bld) [Volume fraction] 40.1 % 40-54 [facility] Hemoglobin measurementOrdere d By: Renard Burgos on 06-03-2024 Hemoglobin (Bld) [Mass/Vol] 13.2 g/dL 13.0-16.5 [facility] Immature granulocytes/100 WB C Auto (Bld)Ordered By: Renard Burgos on 06-03-2024 Immature granulocytes/100 WBC (Bld) 0.400 % 0.0-0.9 [facility] Comment on above: IG% - Immature Granu locytes (promyelocytes, myelocytes and metamyelocytes) > 1% indicates that a LEFT SHIFT is Present. Lymphocytes Auto (Unsp spec) [#/Vol]Ordered By: Renard Burgos on 06-03-2024 Lymphocytes (Bld) [#/Vol] 1.94 10*3/uL 0.83-4.51 [facility] Lymphocytes/100 WBC Auto (Un sp spec)Ordered By: Renard Burgos on 06-03-2024 Lymphocytes/100 WBC (Bld) 15.7 % Low 19-41 [facility] MCV (mean corpuscular volume ) determinationOrdered By: Renard Burgos on 06-03-2024 MCV (RBC) [Entitic vol] 91.3 fL 80-94 [facility] Mean corpuscular hemoglobin (MCH) determinationOrdered By: Renard Burgos on 06-03-2024 MCH (RBC) [Entitic mass] 30.1 pg 27.0-32.0 [facility] Mean corpuscular hemoglobin concentration (MCHC) determinationOrdered By: Renard Burgos on 06-03-2024 MCHC (RBC) [Mass/Vol] 32.9 g/dL 32-36 [facility] Mean platelet volume determi nationOrdered By: Renard Burgos on 06-03-2024 Platelet mean volume (Bld) [Entitic vol] 11.1 fL 6.2-12.0 [facility] Monocyte percentageOrdered B y: Renard Burgos on 06-03-2024 Monocytes/100 WBC (Bld) 6.6 % 0-10 [facility] Neutrophil percentageOrdered By: Renard Burgos on 06-03-2024 Neutrophils/100 WBC (Bld) 76.5 % High 47-70 [facility] Nucleated red blood cell per centageOrdered By: Renard Burgos on 06-03-2024 Nucleated RBC/100 WBC (Bld) [Ratio] 0 % 0-5 [facility] Platelet countOrdered By: Garrick Bhatt on 06-03-2024 Platelets (Bld) [#/Vol] 249 10*3/uL 150-450 [facility] RBC Auto (Bld) [#/Vol]Ordere d By: Renard Burgos on 06-03-2024 RBC (Bld) [#/Vol] 4.39 10*6/uL Low 4.6-6.2 [facility] White blood cell (WBC) count Ordered By: Renard Burgos on 06-03-2024 WBC (Bld) [#/Vol] 12.4 10*3/uL High 4.4-11.0 [facility] Absolute lymphocyte countOrd ered By: Renard Burgos on 05-27-2024 Lymphocytes Auto (Unsp spec) [#/Vol] 1.81 10*3/uL 0.83-4.51 [facility] Absolute neutrophil countOrd ered By: Renard Burgos on 05-27-2024 Neutrophils (Bld) [#/Vol] 5.0 10*3/uL 2.0-7.7 [facility] Automated lymphocyte count a s percentage of total leukocytesOrdered By: Renard Burgos on 05-27-2024 Lymphocytes/100 WBC Auto (Unsp spec) 24.4 % 19-41 [facility] Basophil percentageOrdered B y: Renard Burgos on 05-27-2024 Basophils/100 WBC (Bld) 0.5 % 0-1 [facility] CBC W/Diff, Automatedon 05-02 Absolute Lymph 1.81 X10 3/uL Normal 0.83-4.51 [facility] Comment on above: Order Comment: 109.1 Performed By: #### L 100.0100 ####[facility] [address] [place], [address] Absolute Neut 5.0 X10 3/uL Normal 2.0-7.7 [facility] Comment on above: Order Comment: 109.1 Performed By: #### L 100.0100 ####[facility] [address] [place], [address] Basophils/100 WBC (Bld) 0.5 % Normal 0-1 [facility] Comment on above: Order Comment: 109.1 Performed By: #### L 100.0100 ####[facility] [address] [place], [address] Eosinophils/100 WBC (Bld) 0.5 % Normal 0-5 [facility] Comment on above: Order Comment: 109.1 Performed By: #### L 100.0100 ####[facility] [address] [place], [address] Erythrocyte distribution width (RBC) [Ratio] 12.8 % Normal 11.6-14.6 [facility] Comment on above: Order Comment: 109.1 Performed By: #### L 100.0100 ####[facility] [address] [place], [address] Hematocrit (Bld) [Volume fraction] 39.8 % Low 40-54 [facility] Comment on above: Order Comment: 109.1 Performed By: #### L 100.0100 ####[facility] [address] [place], [address] Hemoglobin (Bld) [Mass/Vol] 13.2 g/dL Normal 13.0-16.5 [facility] Comment on above: Order Comment: 109.1 Performed By: #### L 100.0100 ####[facility] [address] [place], [address] IG% 0.400 Normal 0.0-0.9 [facility] Comment on above: Order Comment: 109.1 Result Comment: IG% - Immature Granulocytes (promyelocytes, myelocytes andmetamyelocytes) > 1% indicates that a LEFT SHIFT is Present. Performed By: #### L 100.0100 ####[facility] [address] [place], [address] Lymphocytes/100 WBC (Bld) 24.4 % Normal 19-41 [facility] Comment on above: Order Comment: 109.1 Performed By: #### L 100.0100 ####[facility] [address] [place], [address] MCH (RBC) [Entitic mass] 30.2 pg Normal 27.0-32.0 [facility] Comment on above: Order Comment: 109.1 Performed By: #### L 100.0100 ####[facility] [address] [place], [address] MCHC (RBC) [Mass/Vol] 33.2 g/dL Normal 32-36 [facility] Comment on above: Order Comment: 109.1 Performed By: #### L 100.0100 ####[facility] [address] [place], [address] MCV (RBC) [Entitic vol] 91.1 fL Normal 80-94 [facility] Comment on above: Order Comment: 109.1 Performed By: #### L 100.0100 ####[facility] [address] [place], [address] Monocytes/100 WBC (Bld) 7.0 % Normal 0-10 [facility] Comment on above: Order Comment: 109.1 Performed By: #### L 100.0100 ####[facility] [address] [place], [address] Neutrophils/100 WBC (Bld) 67.2 % Normal 47-70 [facility] Comment on above: Order Comment: 109.1 Performed By: #### L 100.0100 ####[facility] [address] [place], [address] Nucleated RBC (Bld) [#/Vol] 0 10*3/uL Normal 0-5 [facility] Comment on above: Order Comment: 109.1 Performed By: #### L 100.0100 ####[facility] [address] [place], [address] Platelet mean volume (Bld) [Entitic vol] 10.3 fL Normal 6.2-12.0 [facility] Comment on above: Order Comment: 109.1 Performed By: #### L 100.0100 ####[facility] [address] [place], [address] Platelets (Bld) [#/Vol] 239 10*3/uL Normal 150-450 [facility] Comment on above: Order Comment: 109.1 Performed By: #### L 100.0100 ####[facility] [address] [place], [address] RBC (Bld) [#/Vol] 4.37 10*6/uL Low 4.6-6.2 [facility] Comment on above: Order Comment: 109.1 Performed By: #### L 100.0100 ####[facility] [address] [place], [address] RDW SD 42.5 fl Normal 35.1-43.9 [facility] Comment on above: Order Comment: 109.1 Performed By: #### L 100.0100 ####[facility] [address] [place], [address] WBC (Bld) [#/Vol] 7.4 10*3/uL Normal 4.4-11.0 [facility] Comment on above: Order Comment: 109.1 Performed By: #### L 100.0100 ####[facility] [address] [place], [place], [id number] Eosinophil percentageOrdered By: Renard Burgos on 05-27-2024 Eosinophils/100 WBC (Bld) 0.5 % 0-5 [facility] Erythrocyte distribution wid th ratioOrdered By: Renard Burgos on 05-27-2024 Erythrocyte distribution width (RBC) [Ratio] 12.8 % 11.6-14.6 [facility] Erythrocyte distribution wid th standard deviationOrdered By: Renard Burgos on 05-27-2024 Erythrocyte distribution width (RBC) [Entitic vol] 42.5 fL 35.1-43.9 [facility] Erythrocyte distribution width (RBC) [Ratio] 42.5 fl 35.1-43.9 [facility] Hematocrit Auto (Bld) [Volum e fraction]Ordered By: Renard Burgos on 05-27-2024 Hematocrit (Bld) [Volume fraction] 39.8 % Low 40-54 [facility] Hemoglobin measurementOrdere d By: Renard Burgos on 05-27-2024 Hemoglobin (Bld) [Mass/Vol] 13.2 g/dL 13.0-16.5 [facility] Immature granulocytes/100 WB C Auto (Bld)Ordered By: Renard Burgos on 05-27-2024 Immature granulocytes/100 WBC (Bld) 0.400 % 0.0-0.9 [facility] Comment on above: IG% - Immature Granu locytes (promyelocytes, myelocytes and metamyelocytes) > 1% indicates that a LEFT SHIFT is Present. Lymphocytes Auto (Unsp spec) [#/Vol]Ordered By: Renard Burgos on 05-27-2024 Lymphocytes (Bld) [#/Vol] 1.81 10*3/uL 0.83-4.51 [facility] Lymphocytes/100 WBC Auto (Un sp spec)Ordered By: Renard Burgos on 05-27-2024 Lymphocytes/100 WBC (Bld) 24.4 % 19-41 [facility] MCV (mean corpuscular volume ) determinationOrdered By: Renard Burgos on 05-27-2024 MCV (RBC) [Entitic vol] 91.1 fL 80-94 [facility] Mean corpuscular hemoglobin (MCH) determinationOrdered By: Renard Burgos on 05-27-2024 MCH (RBC) [Entitic mass] 30.2 pg 27.0-32.0 [facility] Mean corpuscular hemoglobin concentration (MCHC) determinationOrdered By: Renard Burgos on 05-27-2024 MCHC (RBC) [Mass/Vol] 33.2 g/dL 32-36 [facility] Mean platelet volume determi nationOrdered By: Renard Burgos on 05-27-2024 Platelet mean volume (Bld) [Entitic vol] 10.3 fL 6.2-12.0 [facility] Monocyte percentageOrdered B y: Renard Burgos on 05-27-2024 Monocytes/100 WBC (Bld) 7.0 % 0-10 [facility] Neutrophil percentageOrdered By: Renard Burgos on 05-27-2024 Neutrophils/100 WBC (Bld) 67.2 % 47-70 [facility] Nucleated red blood cell per centageOrdered By: Renard Burgos on 05-27-2024 Nucleated RBC/100 WBC (Bld) [Ratio] 0 % 0-5 [facility] Platelet countOrdered By: Garrick Bhatt on 05-27-2024 Platelets (Bld) [#/Vol] 239 10*3/uL 150-450 [facility] RBC Auto (Bld) [#/Vol]Ordere d By: Renard Burgos on 05-27-2024 RBC (Bld) [#/Vol] 4.37 10*6/uL Low 4.6-6.2 [facility] White blood cell (WBC) count Ordered By: Renard Burgos on 05-27-2024 WBC (Bld) [#/Vol] 7.4 10*3/uL 4.4-11.0 [facility] Absolute lymphocyte countOrd ered By: Renard Burgos on 05-20-2024 Lymphocytes Auto (Unsp spec) [#/Vol] 1.73 10*3/uL 0.83-4.51 [facility] Absolute neutrophil countOrd ered By: Renard Burgos on 05-20-2024 Neutrophils (Bld) [#/Vol] 7.0 10*3/uL 2.0-7.7 [facility] Automated blood erythrocyte countOrdered By: Renard Burgos on 05-20-2024 RBC (Bld) [#/Vol] 4.74 10*6/uL Normal 4.6-6.2 [facility] Comment on above: Order Comment: 109-1 Performed By: #### L 100.0100 ####[facility] [address] [place], [place], [id number]) Automated blood hematocrit ( percentage)Ordered By: Renard Burgos on 05-20-2024 Hematocrit (Bld) [Volume fraction] 43.6 % Normal 40-54 [facility] Comment on above: Order Comment: 109-1 Performed By: #### L 100.0100 ####[facility] [address] [place], [address] Automated lymphocyte count a s percentage of total leukocytesOrdered By: Renard Burgos on 05-20-2024 Lymphocytes/100 WBC (Bld) 17.7 % Low 19-41 [facility] Comment on above: Order Comment: 109-1 Performed By: #### L 100.0100 ####[facility] [address] [place], [address] Lymphocytes/100 WBC Auto (Unsp spec) 17.7 % Low - [facility] Basophil percentageOrdered B y: Renard Burgos on 05-20-2024 Basophils/100 WBC (Bld) 0.5 % Normal 0-1 [facility] Comment on above: Order Comment: 109-1 Performed By: #### L 100.0100 ####[facility] [address] [place], [address] CBC W/Diff, Automatedon - 0-2024 Absolute Lymph 1.73 X10 3/uL Normal 0.83-4.51 [facility] Comment on above: Order Comment: 109-1 Performed By: #### L 100.0100 ####[facility] [address] [place], [address] Absolute Neut 7.0 X10 3/uL Normal 2.0-7.7 [facility] Comment on above: Order Comment: 109-1 Performed By: #### L 100.0100 ####[facility] [address] [place], [address] IG% 0.500 Normal 0.0-0.9 [facility] Comment on above: Order Comment: 109-1 Result Comment: IG% - Immature Granulocytes (promyelocytes, myelocytes andmetamyelocytes) > 1% indicates that a LEFT SHIFT is Present. Performed By: #### L 100.0100 ####[facility] [address] [place], [address] Nucleated RBC (Bld) [#/Vol] 0 10*3/uL Normal 0-5 [facility] Comment on above: Order Comment: 109-1 Performed By: #### L 100.0100 ####[facility] [address] [place], [address] RDW SD 42.5 fl Normal 35.1-43.9 [facility] Comment on above: Order Comment: 109-1 Performed By: #### L 100.0100 ####[facility] [address] [place], [address] Eosinophil percentageOrdered By: Renard Burgos on 05-20-2024 Eosinophils/100 WBC (Bld) 0.5 % Normal 0-5 [facility] Comment on above: Order Comment: 109-1 Performed By: #### L 100.0100 ####[facility] [address] [place], [place], [id number] Erythrocyte distribution wid th ratioOrdered By: Renard Burgos on 05-20-2024 Erythrocyte distribution width (RBC) [Ratio] 12.6 % Normal 11.6-14.6 [facility] Comment on above: Order Comment: 109-1 Performed By: #### L 100.0100 ####[facility] [address] [place], [place], [id number] Erythrocyte distribution wid th standard deviationOrdered By: Renard Burgos on 05-20-2024 Erythrocyte distribution width (RBC) [Entitic vol] 42.5 fL 35.1-43.9 [facility] Erythrocyte distribution width (RBC) [Ratio] 42.5 fl 35.1-43.9 [facility] Hemoglobin measurementOrdere d By: Renard Burgos on 05-20-2024 Hemoglobin (Bld) [Mass/Vol] 14.4 g/dL Normal 13.0-16.5 [facility] Comment on above: Order Comment: Performed By: #### L 100.0100 ####[facility] [address] [place], [place], [id number] Immature granulocytes/100 WB C Auto (Bld)Ordered By: Renard Burgos on 05-20-2024 Immature granulocytes/100 WBC (Bld) 0.500 % 0.0-0.9 [facility] Comment on above: IG% - Immature Granu locytes (promyelocytes, myelocytes and metamyelocytes) > 1% indicates that a LEFT SHIFT is Present. Lymphocytes Auto (Unsp spec) [#/Vol]Ordered By: Renard Burgos on 05-20-2024 Lymphocytes (Bld) [#/Vol] 1.73 10*3/uL 0.83-4.51 [facility] MCV (mean corpuscular volume ) determinationOrdered By: Renard Burgos on 05-20-2024 MCV (RBC) [Entitic vol] 92.0 fL Normal 80-94 [facility] Comment on above: Order Comment: 109-1 Performed By: #### L 100.0100 ####[facility] [address] [place], [address] Mean corpuscular hemoglobin (MCH) determinationOrdered By: Renard Burgos on 05-20-2024 MCH (RBC) [Entitic mass] 30.4 pg Normal 27.0-32.0 [facility] Comment on above: Order Comment: 109-1 Performed By: #### L 100.0100 ####[facility] [address] [place], [address] Mean corpuscular hemoglobin concentration (MCHC) determinationOrdered By: Renard Burgos on 05-20-2024 MCHC (RBC) [Mass/Vol] 33.0 g/dL Normal 32-36 [facility] Comment on above: Order Comment: 109-1 Performed By: #### L 100.0100 ####[facility] [address] [place], [address] Mean platelet volume determi nationOrdered By: Renard Burgos on 05-20-2024 Platelet mean volume (Bld) [Entitic vol] 10.7 fL Normal 6.2-12.0 [facility] Comment on above: Order Comment: 109-1 Performed By: #### L 100.0100 ####[facility] [address] [place], [address] Monocyte percentageOrdered B y: Renard Burgos on 05-20-2024 Monocytes/100 WBC (Bld) 9.4 % Normal 0-10 [facility] Comment on above: Order Comment: 109-1 Performed By: #### L 100.0100 ####[facility] [address] [place], [address] Neutrophil percentageOrdered By: Renard Burgos on 05-20-2024 Neutrophils/100 WBC (Bld) 71.4 % High 47-70 [facility] Comment on above: Order Comment: 109-1 Performed By: #### L 100.0100 ####[facility] [address] [place], [place], [id number] Nucleated red blood cell per centageOrdered By: Renard Burgos on 05-20-2024 Nucleated RBC/100 WBC (Bld) [Ratio] 0 % 0-5 [facility] Platelet countOrdered By: Garrick Bhatt on 05-20-2024 Platelets (Bld) [#/Vol] 239 10*3/uL Normal 150-450 [facility] Comment on above: Order Comment: 109-1 Performed By: #### L 100.0100 ####[facility] [address] [place], [place], [id number] White blood cell (WBC) count Ordered By: Renard Burgos on 05-20-2024 WBC (Bld) [#/Vol] 9.8 10*3/uL Normal 4.4-11.0 [facility] Comment on above: Order Comment: 109-1 Performed By: #### L 100.0100 ####[facility] [address] [facility] [place], [place], [id number] Absolute lymphocyte countOrd ered By: Renard Burgos on 05-13-2024 Lymphocytes Auto (Unsp spec) [#/Vol] 2.10 10*3/uL 0.83-4.51 [facility] Absolute neutrophil countOrd ered By: Renard Burgos on 05-13-2024 Neutrophils (Bld) [#/Vol] 6.2 10*3/uL 2.0-7.7 [facility] Automated lymphocyte count a s percentage of total leukocytesOrdered By: Renard Burgos on 05-13-2024 Lymphocytes/100 WBC Auto (Unsp spec) 22.8 % 19-41 [facility] Basophil percentageOrdered B y: Renard Burgos on 05-13-2024 Basophils/100 WBC (Bld) 0.5 % 0-1 [facility] CBC W/Diff, Automatedon 05-01 Absolute Lymph 2.10 X10 3/uL Normal 0.83-4.51 [facility] Comment on above: Order Comment: 109 Performed By: #### L 100.0100 ####[facility] [address] [place], [address] Absolute Neut 6.2 X10 3/uL Normal 2.0-7.7 [facility] Comment on above: Order Comment: 109 Performed By: #### L 100.0100 ####[facility] [address] [place], [address] Basophils/100 WBC (Bld) 0.5 % Normal 0-1 [facility] Comment on above: Order Comment: 109 Performed By: #### L 100.0100 ####[facility] [address] [place], [address] Eosinophils/100 WBC (Bld) 0.5 % Normal 0-5 [facility] Comment on above: Order Comment: 109 Performed By: #### L 100.0100 ####[facility] [address] [place], [address] Erythrocyte distribution width (RBC) [Ratio] 12.9 % Normal 11.6-14.6 [facility] Comment on above: Order Comment: 109 Performed By: #### L 100.0100 ####[facility] [address] [place], [address] Hematocrit (Bld) [Volume fraction] 42.5 % Normal 40-54 [facility] Comment on above: Order Comment: 109 Performed By: #### L 100.0100 ####[facility] [address] [place], [address] Hemoglobin (Bld) [Mass/Vol] 14.2 g/dL Normal 13.0-16.5 [facility] Comment on above: Order Comment: 109 Performed By: #### L 100.0100 ####[facility] [address] [place], [address] IG% 0.300 Normal 0.0-0.9 [facility] Comment on above: Order Comment: 109 Result Comment: IG% - Immature Granulocytes (promyelocytes, myelocytes andmetamyelocytes) > 1% indicates that a LEFT SHIFT is Present. Performed By: #### L 100.0100 ####[facility] [address] [place], [address] Lymphocytes/100 WBC (Bld) 22.8 % Normal 19-41 [facility] Comment on above: Order Comment: 109 Performed By: #### L 100.0100 ####[facility] [address] [place], [address] MCH (RBC) [Entitic mass] 30.3 pg Normal 27.0-32.0 [facility] Comment on above: Order Comment: 109 Performed By: #### L 100.0100 ####[facility] [address] [place], [address] MCHC (RBC) [Mass/Vol] 33.4 g/dL Normal 32-36 [facility] Comment on above: Order Comment: 109 Performed By: #### L 100.0100 ####[facility] [address] [place], [address] MCV (RBC) [Entitic vol] 90.6 fL Normal 80-94 [facility] Comment on above: Order Comment: 109 Performed By: #### L 100.0100 ####[facility] [address] [place], [address] Monocytes/100 WBC (Bld) 8.7 % Normal 0-10 [facility] Comment on above: Order Comment: 109 Performed By: #### L 100.0100 ####[facility] [address] [place], [address] Neutrophils/100 WBC (Bld) 67.2 % Normal 47-70 [facility] Comment on above: Order Comment: 109 Performed By: #### L 100.0100 ####[facility] [address] [place], [address] Nucleated RBC (Bld) [#/Vol] 0 10*3/uL Normal 0-5 [facility] Comment on above: Order Comment: 109 Performed By: #### L 100.0100 ####[facility] [address] [place], [address] Platelet mean volume (Bld) [Entitic vol] 11.1 fL Normal 6.2-12.0 [facility] Comment on above: Order Comment: 109 Performed By: #### L 100.0100 ####[facility] [address] [place], [address] Platelets (Bld) [#/Vol] 218 10*3/uL Normal 150-450 [facility] Comment on above: Order Comment: 109 Performed By: #### L 100.0100 ####[facility] [address] [place], [address] RBC (Bld) [#/Vol] 4.69 10*6/uL Normal 4.6-6.2 [facility] Comment on above: Order Comment: 109 Performed By: #### L 100.0100 ####[facility] [address] [place], [address] RDW SD 42.3 fl Normal 35.1-43.9 [facility] Comment on above: Order Comment: 109 Performed By: #### L 100.0100 ####[facility] [address] [place], [address] WBC (Bld) [#/Vol] 9.2 10*3/uL Normal 4.4-11.0 [facility] Comment on above: Order Comment: 109 Performed By: #### L 100.0100 ####[facility] [address] [place], [address] Eosinophil percentageOrdered By: Renard Burgos on 05-13-2024 Eosinophils/100 WBC (Bld) 0.5 % 0-5 [facility] Erythrocyte distribution wid th ratioOrdered By: Renard Burgos on 05-13-2024 Erythrocyte distribution width (RBC) [Ratio] 12.9 % 11.6-14.6 [facility] Erythrocyte distribution wid th standard deviationOrdered By: Renard Burgos on 05-13-2024 Erythrocyte distribution width (RBC) [Entitic vol] 42.3 fL 35.1-43.9 [facility] Erythrocyte distribution width (RBC) [Ratio] 42.3 fl 35.1-43.9 [facility] Hematocrit Auto (Bld) [Volum e fraction]Ordered By: Renard Burgos on 05-13-2024 Hematocrit (Bld) [Volume fraction] 42.5 % 40-54 [facility] Hemoglobin measurementOrdere d By: Renard Burgos on 05-13-2024 Hemoglobin (Bld) [Mass/Vol] 14.2 g/dL 13.0-16.5 [facility] Immature granulocytes/100 WB C Auto (Bld)Ordered By: Renard Burgos on 05-13-2024 Immature granulocytes/100 WBC (Bld) 0.300 % 0.0-0.9 [facility] Comment on above: IG% - Immature Granu locytes (promyelocytes, myelocytes and metamyelocytes) > 1% indicates that a LEFT SHIFT is Present. Lymphocytes Auto (Unsp spec) [#/Vol]Ordered By: Renard Burgos on 05-13-2024 Lymphocytes (Bld) [#/Vol] 2.10 10*3/uL 0.83-4.51 [facility] Lymphocytes/100 WBC Auto (Un sp spec)Ordered By: Renard Burgos on 05-13-2024 Lymphocytes/100 WBC (Bld) 22.8 % 19-41 [facility] MCV (mean corpuscular volume ) determinationOrdered By: Renard Burgos on 05-13-2024 MCV (RBC) [Entitic vol] 90.6 fL 80-94 [facility] Mean corpuscular hemoglobin (MCH) determinationOrdered By: Renard Burgos on 05-13-2024 MCH (RBC) [Entitic mass] 30.3 pg 27.0-32.0 [facility] Mean corpuscular hemoglobin concentration (MCHC) determinationOrdered By: Renard Burgos on 05-13-2024 MCHC (RBC) [Mass/Vol] 33.4 g/dL 32-36 [facility] Mean platelet volume determi nationOrdered By: Renard Burgos on 05-13-2024 Platelet mean volume (Bld) [Entitic vol] 11.1 fL 6.2-12.0 [facility] Monocyte percentageOrdered B y: Renard Burgos on 05-13-2024 Monocytes/100 WBC (Bld) 8.7 % 0-10 [facility] Neutrophil percentageOrdered By: Renard Burgos on 05-13-2024 Neutrophils/100 WBC (Bld) 67.2 % 47-70 [facility] Nucleated red blood cell per centageOrdered By: Renard Burgos on 05-13-2024 Nucleated RBC/100 WBC (Bld) [Ratio] 0 % 0-5 [facility] Platelet countOrdered By: Garrick Bhatt on 05-13-2024 Platelets (Bld) [#/Vol] 218 10*3/uL 150-450 [facility] RBC Auto (Bld) [#/Vol]Ordere d By: Renard Burgos on 05-13-2024 RBC (Bld) [#/Vol] 4.69 10*6/uL 4.6-6.2 [facility] White blood cell (WBC) count Ordered By: Renard Burgos on 05-13-2024 WBC (Bld) [#/Vol] 9.2 10*3/uL 4.4-11.0 [facility] Absolute neutrophil countOrd ered By: Renard Burgos on 05-06-2024 Neutrophils (Bld) [#/Vol] 5.9 10*3/uL 2.0-7.7 [facility] Automated blood erythrocyte countOrdered By: Renard Burgos on 05-06-2024 RBC (Bld) [#/Vol] 4.85 10*6/uL Normal 4.6-6.2 [facility] Comment on above: Order Comment: 109-1 Performed By: #### L 100.0100 ####[facility] [address] [place], [address] Automated blood hematocrit ( percentage)Ordered By: Renard Burgos on 05-06-2024 Hematocrit (Bld) [Volume fraction] 45.0 % Normal 40-54 [facility] Comment on above: Order Comment: 109-1 Performed By: #### L 100.0100 ####[facility] [address] [place], [address] Automated lymphocyte count a s percentage of total leukocytesOrdered By: Renard Burgos on 05-06-2024 Lymphocytes/100 WBC (Bld) 24.4 % Normal 19-41 [facility] Comment on above: Order Comment: 109-1 Performed By: #### L 100.0100 ####[facility] [address] [place], [address] Basophil percentageOrdered B y: Renard Burgos on 05-06-2024 Basophils/100 WBC (Bld) 0.5 % Normal 0-1 [facility] Comment on above: Order Comment: 109-1 Performed By: #### L 100.0100 ####[facility] [address] [place], [address] CBC W/Diff, Automatedon 01-0 Absolute Lymph 2.22 X10 3/uL Normal 0.83-4.51 [facility] Comment on above: Order Comment: 109-1 Performed By: #### L 100.0100 ####[facility] [address] [place], [address] Absolute Neut 5.9 X10 3/uL Normal 2.0-7.7 [facility] Comment on above: Order Comment: 109-1 Performed By: #### L 100.0100 ####[facility] [address] [place], [address] IG% 0.500 Normal 0.0-0.9 [facility] Comment on above: Order Comment: 109-1 Result Comment: IG% - Immature Granulocytes (promyelocytes, myelocytes andmetamyelocytes) > 1% indicates that a LEFT SHIFT is Present. Performed By: #### L 100.0100 ####[facility] [address] [place], [address] Nucleated RBC (Bld) [#/Vol] 0 10*3/uL Normal 0-5 [facility] Comment on above: Order Comment: 109-1 Performed By: #### L 100.0100 ####[facility] [address] [place], [address] RDW SD 43.9 fl Normal 35.1-43.9 [facility] Comment on above: Order Comment: 109-1 Performed By: #### L 100.0100 ####[facility] [address] [place], [address] Eosinophil percentageOrdered By: Renard Burgos on 05-06-2024 Eosinophils/100 WBC (Bld) 0.4 % Normal 0-5 [facility] Comment on above: Order Comment: 109-1 Performed By: #### L 100.0100 ####[facility] [address] [place], [address] Erythrocyte distribution wid th ratioOrdered By: Renard Burgos on 05-06-2024 Erythrocyte distribution width (RBC) [Ratio] 13.0 % Normal 11.6-14.6 [facility] Comment on above: Order Comment: 109-1 Performed By: #### L 100.0100 ####[facility] [address] [place], [address] Erythrocyte distribution wid th standard deviationOrdered By: Renard Burgos on 05-06-2024 Erythrocyte distribution width (RBC) [Entitic vol] 43.9 fL 35.1-43.9 [facility] Hemoglobin measurementOrdere d By: Renard Burgos on 05-06-2024 Hemoglobin (Bld) [Mass/Vol] 14.5 g/dL Normal 13.0-16.5 [facility] Comment on above: Order Comment: 109-1 Performed By: #### L 100.0100 ####[facility] [address] [place], [address] Immature granulocytes/100 WB C Auto (Bld)Ordered By: Renard Burgos on 05-06-2024 Immature granulocytes/100 WBC (Bld) 0.500 % 0.0-0.9 [facility] Comment on above: IG% - Immature Granu locytes (promyelocytes, myelocytes and metamyelocytes) > 1% indicates that a LEFT SHIFT is Present. Lymphocytes Auto (Unsp spec) [#/Vol]Ordered By: Renard Burgos on 05-06-2024 Lymphocytes (Bld) [#/Vol] 2.22 10*3/uL 0.83-4.51 [facility] MCV (mean corpuscular volume ) determinationOrdered By: Renard Burgos on 05-06-2024 MCV (RBC) [Entitic vol] 92.8 fL Normal 80-94 [facility] Comment on above: Order Comment: 109-1 Performed By: #### L 100.0100 ####[facility] [address] [place], [address] Mean corpuscular hemoglobin (MCH) determinationOrdered By: Renard Burgos on 05-06-2024 MCH (RBC) [Entitic mass] 29.9 pg Normal 27.0-32.0 [facility] Comment on above: Order Comment: 109-1 Performed By: #### L 100.0100 ####[facility] [address] [place], [address] Mean corpuscular hemoglobin concentration (MCHC) determinationOrdered By: Renard Burgos on 05-06-2024 MCHC (RBC) [Mass/Vol] 32.2 g/dL Normal 32-36 [facility] Comment on above: Order Comment: 109-1 Performed By: #### L 100.0100 ####[facility] [address] [place], [address] Mean platelet volume determi nationOrdered By: Renard Burgos on 05-06-2024 Platelet mean volume (Bld) [Entitic vol] 11.4 fL Normal 6.2-12.0 [facility] [facility] Comment on above: Order Comment: 109-1 Performed By: #### L 100.0100 ####[facility] [address] [place], [address] Monocyte percentageOrdered B y: Renard Burgos on 05-06-2024 Monocytes/100 WBC (Bld) 9.7 % Normal 0-10 [facility] Comment on above: Order Comment: 109-1 Performed By: #### L 100.0100 ####[facility] [address] [place], [address] Neutrophil percentageOrdered By: Renard Burgos on 05-06-2024 Neutrophils/100 WBC (Bld) 64.5 % Normal 47-70 [facility] Comment on above: Order Comment: 109-1 Performed By: #### L 100.0100 ####[facility] [address] [place], [address] Nucleated red blood cell per centageOrdered By: Renard Burgos on 05-06-2024 Nucleated RBC/100 WBC (Bld) [Ratio] 0 % 0-5 [facility] Platelet countOrdered By: Garrick Bhatt on 05-06-2024 Platelets (Bld) [#/Vol] 201 10*3/uL Normal 150-450 [facility] Comment on above: Order Comment: 109-1 Performed By: #### L 100.0100 ####[facility] [address], [address] White blood cell (WBC) count Ordered By: Renard Burgos on 05-06-2024 WBC (Bld) [#/Vol] 9.1 10*3/uL Normal 4.4-11.0 [facility] Comment on above: Order Comment: 109-1 Performed By: #### L 100.0100 ####[facility] [address] [place], [address] 36on 05-03-2024 36 Gissel is calling to let Dr. Burgos know that the medication he prescribed he not certified, she is going to fax the information to the office. [phone] Normal [facility] Absolute neutrophil countOrd ered By: Renard Burgos on 04-29-2024 Neutrophils (Bld) [#/Vol] 6.3 10*3/uL 2.0-7.7 [facility] Basophil percentageOrdered B y: Renard Burgos on 04-29-2024 Basophils/100 WBC (Bld) 0.4 % 0-1 [facility] CBC W/Diff, Automatedon --2023 Absolute Lymph 2.11 X10 3/uL Normal 0.83-4.51 [facility] Comment on above: Order Comment: 109.1 Performed By: #### L 100.0100 ####[facility] [address] [place], [address] Absolute Neut 6.3 X10 3/uL Normal 2.0-7.7 [facility] Comment on above: Order Comment: 109.1 Performed By: #### L 100.0100 ####[facility] [address] [place], [address] Basophils/100 WBC (Bld) 0.4 % Normal 0-1 [facility] Comment on above: Order Comment: 109.1 Performed By: #### L 100.0100 ####[facility] [address] [place], [address] Eosinophils/100 WBC (Bld) 0.4 % Normal 0-5 [facility] Comment on above: Order Comment: 109.1 Performed By: #### L 100.0100 ####[facility] [address] [place], [address] Erythrocyte distribution width (RBC) [Ratio] 12.6 % Normal 11.6-14.6 [facility] Comment on above: Order Comment: 109.1 Performed By: #### L 100.0100 ####[facility] [address] [place], [address] Hematocrit (Bld) [Volume fraction] 41.6 % Normal 40-54 [facility] Comment on above: Order Comment: 109.1 Performed By: #### L 100.0100 ####[facility] [address] [place], [address] Hemoglobin (Bld) [Mass/Vol] 13.7 g/dL Normal 13.0-16.5 [facility] Comment on above: Order Comment: 109.1 Performed By: #### L 100.0100 ####[facility] [address] [place], [address] IG% 0.400 Normal 0.0-0.9 [facility] Comment on above: Order Comment: 109.1 Result Comment: IG% - Immature Granulocytes (promyelocytes, myelocytes andmetamyelocytes) > 1% indicates that a LEFT SHIFT is Present. Performed By: #### L 100.0100 ####[facility] [address] [place], [address] Lymphocytes/100 WBC (Bld) 22.6 % Normal 19-41 [facility] Comment on above: Order Comment: 109.1 Performed By: #### L 100.0100 ####[facility] [address] [place], [address] MCH (RBC) [Entitic mass] 30.1 pg Normal 27.0-32.0 [facility] Comment on above: Order Comment: 109.1 Performed By: #### L 100.0100 ####[facility] [address] [place], [address] MCHC (RBC) [Mass/Vol] 32.9 g/dL Normal 32-36 [facility] Comment on above: Order Comment: 109.1 Performed By: #### L 100.0100 ####[facility] [address] [place], [address] MCV (RBC) [Entitic vol] 91.4 fL Normal 80-94 [facility] Comment on above: Order Comment: 109.1 Performed By: #### L 100.0100 ####[facility] [address] [place], [address] Monocytes/100 WBC (Bld) 9.3 % Normal 0-10 [facility] Comment on above: Order Comment: 109.1 Performed By: #### L 100.0100 ####[facility] [address] [place], [address] Neutrophils/100 WBC (Bld) 66.9 % Normal 47-70 [facility] Comment on above: Order Comment: 109.1 Performed By: #### L 100.0100 ####[facility] [address] [place], [address] Nucleated RBC (Bld) [#/Vol] 0 10*3/uL Normal 0-5 [facility] Comment on above: Order Comment: 109.1 Performed By: #### L 100.0100 ####[facility] [address] [place], [address] Platelet mean volume (Bld) [Entitic vol] 11.0 fL Normal 6.2-12.0 [facility] Comment on above: Order Comment: 109.1 Performed By: #### L 100.0100 ####[facility] [address] [place], [address] Platelets (Bld) [#/Vol] 211 10*3/uL Normal 150-450 [facility] Comment on above: Order Comment: 109.1 Performed By: #### L 100.0100 ####[facility] [address] [place], [address] RBC (Bld) [#/Vol] 4.55 10*6/uL Low 4.6-6.2 [facility] Comment on above: Order Comment: 109.1 Performed By: #### L 100.0100 ####[facility] [address] [place], [address] RDW SD 41.5 fl Normal 35.1-43.9 [facility] Comment on above: Order Comment: 109.1 Performed By: #### L 100.0100 ####[facility] [address] [place], [address] WBC (Bld) [#/Vol] 9.4 10*3/uL Normal 4.4-11.0 [facility] Comment on above: Order Comment: 109.1 Performed By: #### L 100.0100 ####[facility] [address] [place], [address] Eosinophil percentageOrdered By: Renard Burgos on 04-29-2024 Eosinophils/100 WBC (Bld) 0.4 % 0-5 [facility] Erythrocyte distribution wid th ratioOrdered By: Renard Burgos on 04-29-2024 Erythrocyte distribution width (RBC) [Ratio] 12.6 % 11.6-14.6 [facility] Erythrocyte distribution wid th standard deviationOrdered By: Renard Burgos on 04-29-2024 Erythrocyte distribution width (RBC) [Entitic vol] 41.5 fL 35.1-43.9 [facility] Hematocrit Auto (Bld) [Volum e fraction]Ordered By: Renard Burgos on 04-29-2024 Hematocrit (Bld) [Volume fraction] 41.6 % 40-54 [facility] Hemoglobin measurementOrdere d By: Renard Burgos on 04-29-2024 Hemoglobin (Bld) [Mass/Vol] 13.7 g/dL 13.0-16.5 [facility] Immature granulocytes/100 WB C Auto (Bld)Ordered By: Renard Burgos on 04-29-2024 Immature granulocytes/100 WBC (Bld) 0.400 % 0.0-0.9 [facility] Comment on above: IG% - Immature Granu locytes (promyelocytes, myelocytes and metamyelocytes) > 1% indicates that a LEFT SHIFT is Present. Lymphocytes Auto (Unsp spec) [#/Vol]Ordered By: Renard Burgos on 04-29-2024 Lymphocytes (Bld) [#/Vol] 2.11 10*3/uL 0.83-4.51 [facility] Lymphocytes/100 WBC Auto (Un sp spec)Ordered By: Renard Burgos on 04-29-2024 Lymphocytes/100 WBC (Bld) 22.6 % 19-41 [facility] MCV (mean corpuscular volume ) determinationOrdered By: Renard Burgos on 04-29-2024 MCV (RBC) [Entitic vol] 91.4 fL 80-94 [facility] Mean corpuscular hemoglobin (MCH) determinationOrdered By: Renard Burgos on 04-29-2024 MCH (RBC) [Entitic mass] 30.1 pg 27.0-32.0 [facility] Mean corpuscular hemoglobin concentration (MCHC) determinationOrdered By: Renard Burgos on 04-29-2024 MCHC (RBC) [Mass/Vol] 32.9 g/dL 32-36 [facility] Mean platelet volume determi nationOrdered By: Renard Burgos on 04-29-2024 Platelet mean volume (Bld) [Entitic vol] 11.0 fL 6.2-12.0 [facility] Monocyte percentageOrdered B y: Renard Burgos on 04-29-2024 Monocytes/100 WBC (Bld) 9.3 % 0-10 [facility] Neutrophil percentageOrdered By: Renard Burgos on 04-29-2024 Neutrophils/100 WBC (Bld) 66.9 % 47-70 [facility] Nucleated red blood cell per centageOrdered By: Renard Burgos on 04-29-2024 Nucleated RBC/100 WBC (Bld) [Ratio] 0 % 0-5 [facility] Platelet countOrdered By: Garrick Bhatt on 04-29-2024 Platelets (Bld) [#/Vol] 211 10*3/uL 150-450 [facility] RBC Auto (Bld) [#/Vol]Ordere d By: Renard Burgos on 04-29-2024 RBC (Bld) [#/Vol] 4.55 10*6/uL Low 4.6-6.2 [facility] White blood cell (WBC) count Ordered By: Renard Burgos on 04-29-2024 WBC (Bld) [#/Vol] 9.4 10*3/uL 4.4-11.0 [facility] Absolute neutrophil countOrd ered By: Renard Burgos on 04-22-2024 Neutrophils (Bld) [#/Vol] 8.1 10*3/uL High 2.0-7.7 [facility] Basophil percentageOrdered B y: Renard Burgos on 04-22-2024 Basophils/100 WBC (Bld) 0.5 % 0-1 [facility] CBC W/Diff, Automatedon 04-01 Absolute Lymph 2.61 X10 3/uL Normal 0.83-4.51 [facility] Comment on above: Order Comment: 109-1 Performed By: #### L 100.0100 ####[facility] [address] [place], [address] Absolute Neut 8.1 X10 3/uL High 2.0-7.7 [facility] Comment on above: Order Comment: 109-1 Performed By: #### L 100.0100 ####[facility] [address] [place], [address] Basophils/100 WBC (Bld) 0.5 % Normal 0-1 [facility] Comment on above: Order Comment: 109-1 Performed By: #### L 100.0100 ####[facility] [address] [place], [address] Eosinophils/100 WBC (Bld) 0.4 % Normal 0-5 [facility] Comment on above: Order Comment: 109-1 Performed By: #### L 100.0100 ####[facility] [address] [place], [address] Erythrocyte distribution width (RBC) [Ratio] 12.6 % Normal 11.6-14.6 [facility] Comment on above: Order Comment: 109-1 Performed By: #### L 100.0100 ####[facility] [address] [place], [address] Hematocrit (Bld) [Volume fraction] 44.5 % Normal 40-54 [facility] Comment on above: Order Comment: 109-1 Performed By: #### L 100.0100 ####[facility] [address] [place], [address] Hemoglobin (Bld) [Mass/Vol] 14.3 g/dL Normal 13.0-16.5 [facility] Comment on above: Order Comment: 109-1 Performed By: #### L 100.0100 ####[facility] [address] [place], [address] IG% 0.300 Normal 0.0-0.9 [facility] Comment on above: Order Comment: 109-1 Result Comment: IG% - Immature Granulocytes (promyelocytes, myelocytes andmetamyelocytes) > 1% indicates that a LEFT SHIFT is Present. Performed By: #### L 100.0100 ####[facility] [address] [place], [address] Lymphocytes/100 WBC (Bld) 22.0 % Normal 19-41 [facility] Comment on above: Order Comment: 109-1 Performed By: #### L 100.0100 ####[facility] [address] [place], [address] MCH (RBC) [Entitic mass] 29.7 pg Normal 27.0-32.0 [facility] Comment on above: Order Comment: 109-1 Performed By: #### L 100.0100 ####[facility] [address] [place], [address] MCHC (RBC) [Mass/Vol] 32.1 g/dL Normal 32-36 [facility] Comment on above: Order Comment: 109-1 Performed By: #### L 100.0100 ####[facility] [address] [place], [address] MCV (RBC) [Entitic vol] 92.5 fL Normal 80-94 [facility] Comment on above: Order Comment: 109-1 Performed By: #### L 100.0100 ####[facility] [address] [place], [address] Monocytes/100 WBC (Bld) 8.3 % Normal 0-10 [facility] Comment on above: Order Comment: 109-1 Performed By: #### L 100.0100 ####[facility] [address] [place], [address] Neutrophils/100 WBC (Bld) 68.5 % Normal 47-70 [facility] Comment on above: Order Comment: 109-1 Performed By: #### L 100.0100 ####[facility] [address] [place], [address] Nucleated RBC (Bld) [#/Vol] 0 10*3/uL Normal 0-5 [facility] Comment on above: Order Comment: 109-1 Performed By: #### L 100.0100 ####[facility] [address] [place], [address] Platelet mean volume (Bld) [Entitic vol] 11.0 fL Normal 6.2-12.0 [facility] Comment on above: Order Comment: 109-1 Performed By: #### L 100.0100 ####[facility] [address] [place], [address] Platelets (Bld) [#/Vol] 190 10*3/uL Normal 150-450 [facility] Comment on above: Order Comment: 109-1 Performed By: #### L 100.0100 ####[facility] [address] [place], [address] RBC (Bld) [#/Vol] 4.81 10*6/uL Normal 4.6-6.2 [facility] Comment on above: Order Comment: 109-1 Performed By: #### L 100.0100 ####[facility] [address] [place], [address] RDW SD 43.0 fl Normal 35.1-43.9 [facility] Comment on above: Order Comment: 109-1 Performed By: #### L 100.0100 ####[facility] [address] [place], [address] WBC (Bld) [#/Vol] 11.9 10*3/uL High 4.4-11.0 [facility] Comment on above: Order Comment: 109-1 Performed By: #### L 100.0100 ####[facility] [address] [place], [address] Eosinophil percentageOrdered By: Renard Burgos on 04-22-2024 Eosinophils/100 WBC (Bld) 0.4 % 0-5 [facility] Erythrocyte distribution wid th ratioOrdered By: Renard Burgos on 04-22-2024 Erythrocyte distribution width (RBC) [Ratio] 12.6 % 11.6-14.6 [facility] Erythrocyte distribution wid th standard deviationOrdered By: Renard Burgos on 04-22-2024 Erythrocyte distribution width (RBC) [Entitic vol] 43.0 fL 35.1-43.9 [facility] Hematocrit Auto (Bld) [Volum e fraction]Ordered By: Renard Burgos on 04-22-2024 Hematocrit (Bld) [Volume fraction] 44.5 % 40-54 [facility] Hemoglobin measurementOrdere d By: Renard Burgos on 04-22-2024 Hemoglobin (Bld) [Mass/Vol] 14.3 g/dL 13.0-16.5 [facility] Immature granulocytes/100 WB C Auto (Bld)Ordered By: Renard Burgos on 04-22-2024 Immature granulocytes/100 WBC (Bld) 0.300 % 0.0-0.9 [facility] Comment on above: IG% - Immature Granu locytes (promyelocytes, myelocytes and metamyelocytes) > 1% indicates that a LEFT SHIFT is Present. Lymphocytes Auto (Unsp spec) [#/Vol]Ordered By: Renard Burgos on 04-22-2024 Lymphocytes (Bld) [#/Vol] 2.61 10*3/uL 0.83-4.51 [facility] Lymphocytes/100 WBC Auto (Un sp spec)Ordered By: Renard Burgos on 04-22-2024 Lymphocytes/100 WBC (Bld) 22.0 % 19-41 [facility] MCV (mean corpuscular volume ) determinationOrdered By: Renard Burgos on 04-22-2024 MCV (RBC) [Entitic vol] 92.5 fL 80-94 [facility] Mean corpuscular hemoglobin (MCH) determinationOrdered By: Renard Burgos on 04-22-2024 MCH (RBC) [Entitic mass] 29.7 pg 27.0-32.0 [facility] Mean corpuscular hemoglobin concentration (MCHC) determinationOrdered By: Renard Burgos on 04-22-2024 MCHC (RBC) [Mass/Vol] 32.1 g/dL 32-36 [facility] Mean platelet volume determi nationOrdered By: Renard Burgos on 04-22-2024 Platelet mean volume (Bld) [Entitic vol] 11.0 fL 6.2-12.0 [facility] Monocyte percentageOrdered B y: Renard Burgos on 04-22-2024 Monocytes/100 WBC (Bld) 8.3 % 0-10 [facility] Neutrophil percentageOrdered By: Renard Burgos on 04-22-2024 Neutrophils/100 WBC (Bld) 68.5 % 47-70 [facility] Nucleated red blood cell per centageOrdered By: Renard Burgos on 04-22-2024 Nucleated RBC/100 WBC (Bld) [Ratio] 0 % 0-5 [facility] Platelet countOrdered By: Garrick Bhatt on 04-22-2024 Platelets (Bld) [#/Vol] 190 10*3/uL 150-450 [facility] RBC Auto (Bld) [#/Vol]Ordere d By: Renard Burgos on 04-22-2024 RBC (Bld) [#/Vol] 4.81 10*6/uL 4.6-6.2 [facility] White blood cell (WBC) count Ordered By: Renard Burgos on 04-22-2024 WBC (Bld) [#/Vol] 11.9 10*3/uL High 4.4-11.0 [facility] Absolute neutrophil countOrd ered By: Renard Burgos on 04-15-2024 Neutrophils (Bld) [#/Vol] 8.7 10*3/uL High 2.0-7.7 [facility] Basophil percentageOrdered B y: Renard Burgos on 04-15-2024 Basophils/100 WBC (Bld) 0.3 % 0-1 [facility] Bilirubin, totalOrdered By: Renard Burgos on 04-15-2024 Bilirubin [Mass/Vol] 0.30 mg/dL 0.20-1.00 [facility] Comment on above: For patients on eltr ombopag therapy, use of Dimension [place] TBIL is not recommended. Bilirubin.direct [Mass/Vol]O rdered By: Renard Burgos on 04-15-2024 Direct Bilirubin < 0.05 mg/dL 0.00-0.30 [facility] CBC W/Diff, Automatedon 03-31 Absolute Lymph 1.93 X10 3/uL Normal 0.83-4.51 [facility] Comment on above: Order Comment: 109-1 Performed By: #### L 100.0100, L500.3400 ####[facility] [address] [place], [address] Absolute Neut 8.7 X10 3/uL High 2.0-7.7 [facility] Comment on above: Order Comment: 109-1 Performed By: #### L 100.0100, L500.3400 ####[facility] [address] [place], [address] Basophils/100 WBC (Bld) 0.3 % Normal 0-1 [facility] Comment on above: Order Comment: 109-1 Performed By: #### L 100.0100, L500.3400 ####[facility] [address] [place], [address] Eosinophils/100 WBC (Bld) 0.4 % Normal 0-5 [facility] Comment on above: Order Comment: 109-1 Performed By: #### L 100.0100, L500.3400 ####[facility] [address] [place], [address] Erythrocyte distribution width (RBC) [Ratio] 12.8 % Normal 11.6-14.6 [facility] Comment on above: Order Comment: 109-1 Performed By: #### L 100.0100, L500.3400 ####[facility] [address] [place], [address] Hematocrit (Bld) [Volume fraction] 42.5 % Normal 40-54 [facility] Comment on above: Order Comment: 109-1 Performed By: #### L 100.0100, L500.3400 ####[facility] [address] [place], [address] Hemoglobin (Bld) [Mass/Vol] 13.7 g/dL Normal 13.0-16.5 [facility] Comment on above: Order Comment: 109-1 Performed By: #### L 100.0100, L500.3400 ####[facility] [address] [place], [address] IG% 0.400 Normal 0.0-0.9 [facility] Comment on above: Order Comment: 109-1 Result Comment: IG% - Immature Granulocytes (promyelocytes, myelocytes andmetamyelocytes) > 1% indicates that a LEFT SHIFT is Present. Performed By: #### L 100.0100, L500.3400 ####[facility] [address] [place], [address] Lymphocytes/100 WBC (Bld) 16.9 % Low 19-41 [facility] Comment on above: Order Comment: 109-1 Performed By: #### L 100.0100, L500.3400 ####[facility] [address] [place], [address] MCH (RBC) [Entitic mass] 29.5 pg Normal 27.0-32.0 [facility] Comment on above: Order Comment: 109-1 Performed By: #### L 100.0100, L500.3400 ####[facility] [address] [place], [address] MCHC (RBC) [Mass/Vol] 32.2 g/dL Normal 32-36 [facility] Comment on above: Order Comment: 109-1 Performed By: #### L 100.0100, L500.3400 ####[facility] [address] [place], [address] MCV (RBC) [Entitic vol] 91.6 fL Normal 80-94 [facility] Comment on above: Order Comment: 109-1 Performed By: #### L 100.0100, L500.3400 ####[facility] [address] [place], [address] Monocytes/100 WBC (Bld) 6.0 % Normal 0-10 [facility] Comment on above: Order Comment: 109-1 Performed By: #### L 100.0100, L500.3400 ####[facility] [address] [place], [address] Neutrophils/100 WBC (Bld) 76.0 % High 47-70 [facility] Comment on above: Order Comment: 109-1 Performed By: #### L 100.0100, L500.3400 ####[facility] [address] [place], [address] Nucleated RBC (Bld) [#/Vol] 0 10*3/uL Normal 0-5 [facility] Comment on above: Order Comment: 109-1 Performed By: #### L 100.0100, L500.3400 ####[facility] [address] [place], [address] Platelet mean volume (Bld) [Entitic vol] 11.1 fL Normal 6.2-12.0 [facility] Comment on above: Order Comment: 109-1 Performed By: #### L 100.0100, L500.3400 ####[facility] [address] [place], [address] Platelets (Bld) [#/Vol] 197 10*3/uL Normal 150-450 [facility] Comment on above: Order Comment: 109-1 Performed By: #### L 100.0100, L500.3400 ####[facility] [address] [place], [address] RBC (Bld) [#/Vol] 4.64 10*6/uL Normal 4.6-6.2 [facility] Comment on above: Order Comment: 109-1 Performed By: #### L 100.0100, L500.3400 ####[facility] [address] [place], [address] RDW SD 42.5 fl Normal 35.1-43.9 [facility] Comment on above: Order Comment: 109-1 Performed By: #### L 100.0100, L500.3400 ####[facility] [address] [place], [address] WBC (Bld) [#/Vol] 11.4 10*3/uL High 4.4-11.0 [facility] Comment on above: Order Comment: 109-1 Performed By: #### L 100.0100, L500.3400 ####[facility] [address] [place], [address] Eosinophil percentageOrdered By: Renard Burgos on 04-15-2024 Eosinophils/100 WBC (Bld) 0.4 % 0-5 [facility] Erythrocyte distribution wid th ratioOrdered By: Renard Burgos on 04-15-2024 Erythrocyte distribution width (RBC) [Ratio] 12.8 % 11.6-14.6 [facility] Erythrocyte distribution wid th standard deviationOrdered By: Renard Burgos on 04-15-2024 Erythrocyte distribution width (RBC) [Entitic vol] 42.5 fL 35.1-43.9 [facility] Hematocrit Auto (Bld) [Volum e fraction]Ordered By: Renard Burgos on 04-15-2024 Hematocrit (Bld) [Volume fraction] 42.5 % 40-54 [facility] Hemoglobin measurementOrdere d By: Renard Burgos on 04-15-2024 Hemoglobin (Bld) [Mass/Vol] 13.7 g/dL 13.0-16.5 [facility] Immature granulocytes/100 WB C Auto (Bld)Ordered By: Renard Burgos on 04-15-2024 Immature granulocytes/100 WBC (Bld) 0.400 % 0.0-0.9 [facility] Comment on above: IG% - Immature Granu locytes (promyelocytes, myelocytes and metamyelocytes) > 1% indicates that a LEFT SHIFT is Present. Laboratory - Chemistry and C hemistry - challengeOrdered By: Renard Burgos on 04-15-2024 AST [Catalytic activity/Vol] 18 U/L 15-37 [facility] Comment on above: Slight Hemolysis, Re sult may be falsely increased. Liver Profileon 04-15-2024 Albumin [Mass/Vol] 2.9 g/dL Low 3.2-5.0 [facility] Comment on above: Order Comment: 109-1 Performed By: #### L 100.0100, L500.3400 ####[facility] [address] [place], [address] ALK P 126 U/L High 45-117 [facility] Comment on above: Order Comment: 109-1 Performed By: #### L 100.0100, L500.3400 ####[facility] [address] [place], [address] ALT [Catalytic activity/Vol] 21 U/L Normal 16-61 [facility] Comment on above: Order Comment: 109-1 Performed By: #### L 100.0100, L500.3400 ####[facility] [address] [place], [address] AST [Catalytic activity/Vol] 18 U/L Normal 15-37 [facility] Comment on above: Order Comment: 109-1 Result Comment: Slig ht Hemolysis, Result may be falsely increased. Performed By: #### L 100.0100, L500.3400 ####[facility] [address] [place], [address] Bilirubin [Mass/Vol] 0.30 mg/dL Normal 0.20-1.00 [facility] Comment on above: Order Comment: 109-1 Result Comment: For patients on eltrombopag therapy, use of Dimension [place] TBIL is not recommended. Performed By: #### L 100.0100, L500.3400 ####[facility] [address] [place], [address] D BILI < 0.05 Normal 0.00-0.30 [facility] Comment on above: Order Comment: 109-1 Performed By: #### L 100.0100, L500.3400 ####[facility] [address] [place], [address] Globulin (S) [Mass/Vol] 3.0 g/dL Normal 2.2-4.2 [facility] Comment on above: Order Comment: 109-1 Performed By: #### L 100.0100, L500.3400 ####[facility] [address] [place], [address] T PROT 5.9 g/dL Low 6.4-8.2 [facility] Comment on above: Order Comment: 109-1 Performed By: #### L 100.0100, L500.3400 ####[facility] [address] [place], [place], [address] Lymphocytes Auto (Unsp spec) [#/Vol]Ordered By: Renard Burgos on 04-15-2024 Lymphocytes (Bld) [#/Vol] 1.93 10*3/uL 0.83-4.51 [facility] Lymphocytes/100 WBC Auto (Un sp spec)Ordered By: Renard Burgos on 04-15-2024 Lymphocytes/100 WBC (Bld) 16.9 % Low 19-41 [facility] MCV (mean corpuscular volume ) determinationOrdered By: Renard Burgos on 04-15-2024 MCV (RBC) [Entitic vol] 91.6 fL 80-94 [facility] Mean corpuscular hemoglobin (MCH) determinationOrdered By: Renard Burgos on 04-15-2024 MCH (RBC) [Entitic mass] 29.5 pg 27.0-32.0 [facility] Mean corpuscular hemoglobin concentration (MCHC) determinationOrdered By: Renard Burgos on 04-15-2024 MCHC (RBC) [Mass/Vol] 32.2 g/dL 32-36 [facility] Mean platelet volume determi nationOrdered By: Renard Burgos on 04-15-2024 Platelet mean volume (Bld) [Entitic vol] 11.1 fL 6.2-12.0 [facility] Monocyte percentageOrdered B y: Renard Burgos on 04-15-2024 Monocytes/100 WBC (Bld) 6.0 % 0-10 [facility] Neutrophil percentageOrdered By: Renard Burgos on 04-15-2024 Neutrophils/100 WBC (Bld) 76.0 % High 47-70 [facility] Nucleated red blood cell per centageOrdered By: Renard Burgos on 04-15-2024 Nucleated RBC/100 WBC (Bld) [Ratio] 0 % 0-5 [facility] Platelet countOrdered By: Garrick Bhatt on 04-15-2024 Platelets (Bld) [#/Vol] 197 10*3/uL 150-450 [facility] RBC Auto (Bld) [#/Vol]Ordere d By: Renard Burgos on 04-15-2024 RBC (Bld) [#/Vol] 4.64 10*6/uL 4.6-6.2 [facility] Serum globulin measurementOr dered By: Renard Burgos on 04-15-2024 Globulin (S) [Mass/Vol] 3.0 g/dL 2.2-4.2 [facility] Serum or plasma alanine kay otransferase (ALT) measurementOrdered By: Renard Burgos on 04-15-2024 ALT [Catalytic activity/Vol] 21 U/L 16-61 [facility] Serum or plasma albumin gordy urement (mass/volume)Ordered By: Renard Burgos on 04-15-2024 Albumin [Mass/Vol] 2.9 g/dL Low 3.2-5.0 [facility] Serum or plasma alkaline trace sphatase measurementOrdered By: Renard Burgos on 04-15-2024 ALP [Catalytic activity/Vol] 126 U/L High 45-117 [facility] Total proteinOrdered By: Lyubov Burgos on 04-15-2024 Protein [Mass/Vol] 5.9 g/dL Low 6.4-8.2 [facility] White blood cell (WBC) count Ordered By: Renard Burgos on 04-15-2024 WBC (Bld) [#/Vol] 11.4 10*3/uL High 4.4-11.0 [facility] Absolute neutrophil countOrd ered By: Renard Burgos on 04-08-2024 Neutrophils (Bld) [#/Vol] 5.7 10*3/uL 2.0-7.7 [facility] Basophil percentageOrdered B y: Renard Burgos on 04-08-2024 Basophils/100 WBC (Bld) 0.6 % 0-1 [facility] CBC W/Diff, Automatedon 12-0 Absolute Lymph 2.27 X10 3/uL Normal 0.83-4.51 [facility] Comment on above: Order Comment: 109.1 Performed By: #### L 100.0100 ####[facility] [address] [place], [address] Absolute Neut 5.7 X10 3/uL Normal 2.0-7.7 [facility] Comment on above: Order Comment: 109.1 Performed By: #### L 100.0100 ####[facility] [address] [place], [address] Basophils/100 WBC (Bld) 0.6 % Normal 0-1 [facility] Comment on above: Order Comment: 109.1 Performed By: #### L 100.0100 ####[facility] [address] [place], [address] Eosinophils/100 WBC (Bld) 0.5 % Normal 0-5 [facility] Comment on above: Order Comment: 109.1 Performed By: #### L 100.0100 ####[facility] [address] [place], [address] Erythrocyte distribution width (RBC) [Ratio] 12.6 % Normal 11.6-14.6 [facility] Comment on above: Order Comment: 109.1 Performed By: #### L 100.0100 ####[facility] [address] [place], [address] Hematocrit (Bld) [Volume fraction] 41.2 % Normal 40-54 [facility] Comment on above: Order Comment: 109.1 Performed By: #### L 100.0100 ####[facility] [address] [place], [address] Hemoglobin (Bld) [Mass/Vol] 13.3 g/dL Normal 13.0-16.5 [facility] Comment on above: Order Comment: 109.1 Performed By: #### L 100.0100 ####[facility] [address] [place], [address] IG% 0.200 Normal 0.0-0.9 [facility] Comment on above: Order Comment: 109.1 Result Comment: IG% - Immature Granulocytes (promyelocytes, myelocytes andmetamyelocytes) > 1% indicates that a LEFT SHIFT is Present. Performed By: #### L 100.0100 ####[facility] [address] [place], [address] Lymphocytes/100 WBC (Bld) 26.0 % Normal 19-41 [facility] Comment on above: Order Comment: 109.1 Performed By: #### L 100.0100 ####[facility] [address] [place], [address] MCH (RBC) [Entitic mass] 29.6 pg Normal 27.0-32.0 [facility] Comment on above: Order Comment: 109.1 Performed By: #### L 100.0100 ####[facility] [address] [place], [address] MCHC (RBC) [Mass/Vol] 32.3 g/dL Normal 32-36 [facility] Comment on above: Order Comment: 109.1 Performed By: #### L 100.0100 ####[facility] [address] [place], [address] MCV (RBC) [Entitic vol] 91.8 fL Normal 80-94 [facility] Comment on above: Order Comment: 109.1 Performed By: #### L 100.0100 ####[facility] [address] [place], [address] Monocytes/100 WBC (Bld) 7.8 % Normal 0-10 [facility] Comment on above: Order Comment: 109.1 Performed By: #### L 100.0100 ####[facility] [address] [place], [address] Neutrophils/100 WBC (Bld) 64.9 % Normal 47-70 [facility] Comment on above: Order Comment: 109.1 Performed By: #### L 100.0100 ####[facility] [address] [place], [address] Nucleated RBC (Bld) [#/Vol] 0 10*3/uL Normal 0-5 [facility] Comment on above: Order Comment: 109.1 Performed By: #### L 100.0100 ####[facility] [address] [place], [address] Platelet mean volume (Bld) [Entitic vol] 10.8 fL Normal 6.2-12.0 [facility] Comment on above: Order Comment: 109.1 Performed By: #### L 100.0100 ####[facility] [address] [place], [address] Platelets (Bld) [#/Vol] 208 10*3/uL Normal 150-450 [facility] Comment on above: Order Comment: 109.1 Performed By: #### L 100.0100 ####[facility] [address] [place], [address] RBC (Bld) [#/Vol] 4.49 10*6/uL Low 4.6-6.2 [facility] Comment on above: Order Comment: 109.1 Performed By: #### L 100.0100 ####[facility] [address] [place], [address] RDW SD 42.4 fl Normal 35.1-43.9 [facility] Comment on above: Order Comment: 109.1 Performed By: #### L 100.0100 ####[facility] [address] [place], [address] WBC (Bld) [#/Vol] 8.7 10*3/uL Normal 4.4-11.0 [facility] Comment on above: Order Comment: 109.1 Performed By: #### L 100.0100 ####[facility] [address] [place], [address] Eosinophil percentageOrdered By: Renard Burgos on 04-08-2024 Eosinophils/100 WBC (Bld) 0.5 % 0-5 [facility] Erythrocyte distribution wid th ratioOrdered By: Renard Burgos on 04-08-2024 Erythrocyte distribution width (RBC) [Ratio] 12.6 % 11.6-14.6 [facility] Erythrocyte distribution wid th standard deviationOrdered By: Renard Burgos on 04-08-2024 Erythrocyte distribution width (RBC) [Entitic vol] 42.4 fL 35.1-43.9 [facility] Hematocrit Auto (Bld) [Volum e fraction]Ordered By: Renard Burgos on 04-08-2024 Hematocrit (Bld) [Volume fraction] 41.2 % 40-54 [facility] Hemoglobin measurementOrdere d By: Renard Burgos on 04-08-2024 Hemoglobin (Bld) [Mass/Vol] 13.3 g/dL 13.0-16.5 [facility] Immature granulocytes/100 WB C Auto (Bld)Ordered By: Renard Burgos on 04-08-2024 Immature granulocytes/100 WBC (Bld) 0.200 % 0.0-0.9 [facility] Comment on above: IG% - Immature Granu locytes (promyelocytes, myelocytes and metamyelocytes) > 1% indicates that a LEFT SHIFT is Present. Lymphocytes Auto (Unsp spec) [#/Vol]Ordered By: Renard Burgos on 04-08-2024 Lymphocytes (Bld) [#/Vol] 2.27 10*3/uL 0.83-4.51 [facility] Lymphocytes/100 WBC Auto (Un sp spec)Ordered By: Renard Burgos on 04-08-2024 Lymphocytes/100 WBC (Bld) 26.0 % 19-41 [facility] MCV (mean corpuscular volume ) determinationOrdered By: Renard Burgos on 04-08-2024 MCV (RBC) [Entitic vol] 91.8 fL 80-94 [facility] Mean corpuscular hemoglobin (MCH) determinationOrdered By: Renard Burgos on 04-08-2024 MCH (RBC) [Entitic mass] 29.6 pg 27.0-32.0 [facility] Mean corpuscular hemoglobin concentration (MCHC) determinationOrdered By: Renard Burgos on 04-08-2024 MCHC (RBC) [Mass/Vol] 32.3 g/dL 32-36 [facility] Mean platelet volume determi nationOrdered By: Renard Burgos on 04-08-2024 Platelet mean volume (Bld) [Entitic vol] 10.8 fL 6.2-12.0 [facility] Monocyte percentageOrdered B y: Renard Burgos on 04-08-2024 Monocytes/100 WBC (Bld) 7.8 % 0-10 [facility] Neutrophil percentageOrdered By: Renard Burgos on 04-08-2024 Neutrophils/100 WBC (Bld) 64.9 % 47-70 [facility] Nucleated red blood cell per centageOrdered By: Renard Burgos on 04-08-2024 Nucleated RBC/100 WBC (Bld) [Ratio] 0 % 0-5 [facility] Platelet countOrdered By: Garrick Bhatt on 04-08-2024 Platelets (Bld) [#/Vol] 208 10*3/uL 150-450 [facility] RBC Auto (Bld) [#/Vol]Ordere d By: Renard Burgos on 04-08-2024 RBC (Bld) [#/Vol] 4.49 10*6/uL Low 4.6-6.2 [facility] White blood cell (WBC) count Ordered By: Renard Burgos on 04-08-2024 WBC (Bld) [#/Vol] 8.7 10*3/uL 4.4-11.0 [facility] Absolute neutrophil countOrd ered By: Renard Burgos on 04-01-2024 Neutrophils (Bld) [#/Vol] 7.1 10*3/uL 2.0-7.7 [facility] Basophil percentageOrdered B y: Renard Burgos on 04-01-2024 Basophils/100 WBC (Bld) 0.4 % 0-1 [facility] CBC W/Diff, Automatedon 12 Absolute Lymph 1.97 X10 3/uL Normal 0.83-4.51 [facility] Comment on above: Order Comment: 109-1 Performed By: #### L 100.0100 ####[facility] [address] [place], [address] Absolute Neut 7.1 X10 3/uL Normal 2.0-7.7 [facility] Comment on above: Order Comment: 109-1 Performed By: #### L 100.0100 ####[facility] [address] [place], [address] Basophils/100 WBC (Bld) 0.4 % Normal 0-1 [facility] Comment on above: Order Comment: 109-1 Performed By: #### L 100.0100 ####[facility] [address] [place], [address] Eosinophils/100 WBC (Bld) 0.4 % Normal 0-5 [facility] Comment on above: Order Comment: 109-1 Performed By: #### L 100.0100 ####[facility] [address] [place], [address] Erythrocyte distribution width (RBC) [Ratio] 12.6 % Normal 11.6-14.6 [facility] Comment on above: Order Comment: 109-1 Performed By: #### L 100.0100 ####[facility] [address] [place], [address] Hematocrit (Bld) [Volume fraction] 41.7 % Normal 40-54 [facility] Comment on above: Order Comment: 109-1 Performed By: #### L 100.0100 ####[facility] [address] [place], [address] Hemoglobin (Bld) [Mass/Vol] 13.6 g/dL Normal 13.0-16.5 [facility] Comment on above: Order Comment: 109-1 Performed By: #### L 100.0100 ####[facility] [address] [place], [address] IG% 0.300 Normal 0.0-0.9 [facility] Comment on above: Order Comment: 109-1 Result Comment: IG% - Immature Granulocytes (promyelocytes, myelocytes andmetamyelocytes) > 1% indicates that a LEFT SHIFT is Present. Performed By: #### L 100.0100 ####[facility] [address] [place], [address] Lymphocytes/100 WBC (Bld) 20.0 % Normal 19-41 [facility] Comment on above: Order Comment: 109-1 Performed By: #### L 100.0100 ####[facility] [address] [place], [address] MCH (RBC) [Entitic mass] 29.7 pg Normal 27.0-32.0 [facility] Comment on above: Order Comment: 109-1 Performed By: #### L 100.0100 ####[facility] [address] [place], [address] MCHC (RBC) [Mass/Vol] 32.6 g/dL Normal 32-36 [facility] Comment on above: Order Comment: 109-1 Performed By: #### L 100.0100 ####[facility] [address] [place], [address] MCV (RBC) [Entitic vol] 91.0 fL Normal 80-94 [facility] Comment on above: Order Comment: 109-1 Performed By: #### L 100.0100 ####[facility] [address] [place], [address] Monocytes/100 WBC (Bld) 7.1 % Normal 0-10 [facility] Comment on above: Order Comment: 109-1 Performed By: #### L 100.0100 ####[facility] [address] [place], [address] Neutrophils/100 WBC (Bld) 71.8 % High 47-70 [facility] Comment on above: Order Comment: 109-1 Performed By: #### L 100.0100 ####[facility] [address] [place], [address] Nucleated RBC (Bld) [#/Vol] 0 10*3/uL Normal 0-5 [facility] Comment on above: Order Comment: 109-1 Performed By: #### L 100.0100 ####[facility] [address] [place], [address] Platelet mean volume (Bld) [Entitic vol] 11.3 fL Normal 6.2-12.0 [facility] Comment on above: Order Comment: 109-1 Performed By: #### L 100.0100 ####[facility] [address] [place], [address] Platelets (Bld) [#/Vol] 195 10*3/uL Normal 150-450 [facility] Comment on above: Order Comment: 109-1 Performed By: #### L 100.0100 ####[facility] [address] [place], [address] RBC (Bld) [#/Vol] 4.58 10*6/uL Low 4.6-6.2 [facility] Comment on above: Order Comment: 109-1 Performed By: #### L 100.0100 ####[facility] [address] [place], [address] RDW SD 41.2 fl Normal 35.1-43.9 [facility] Comment on above: Order Comment: 109-1 Performed By: #### L 100.0100 ####[facility] [address] [place], [address] WBC (Bld) [#/Vol] 9.8 10*3/uL Normal 4.4-11.0 [facility] Comment on above: Order Comment: 109-1 Performed By: #### L 100.0100 ####[facility] [address] [place], [address] Eosinophil percentageOrdered By: Renard Burgos on 04-01-2024 Eosinophils/100 WBC (Bld) 0.4 % 0-5 [facility] Erythrocyte distribution wid th ratioOrdered By: Renard Burgos on 04-01-2024 Erythrocyte distribution width (RBC) [Ratio] 12.6 % 11.6-14.6 [facility] Erythrocyte distribution wid th standard deviationOrdered By: Renard Burgos on 04-01-2024 Erythrocyte distribution width (RBC) [Entitic vol] 41.2 fL 35.1-43.9 [facility] Hematocrit Auto (Bld) [Volum e fraction]Ordered By: Renadr Burgos on 04-01-2024 Hematocrit (Bld) [Volume fraction] 41.7 % 40-54 [facility] Hemoglobin measurementOrdere d By: Renard Burgos on 04-01-2024 Hemoglobin (Bld) [Mass/Vol] 13.6 g/dL 13.0-16.5 [facility] Immature granulocytes/100 WB C Auto (Bld)Ordered By: Renard Burgos on 04-01-2024 Immature granulocytes/100 WBC (Bld) 0.300 % 0.0-0.9 [facility] Comment on above: IG% - Immature Granu locytes (promyelocytes, myelocytes and metamyelocytes) > 1% indicates that a LEFT SHIFT is Present. Lymphocytes Auto (Unsp spec) [#/Vol]Ordered By: Renard Burgos on 04-01-2024 Lymphocytes (Bld) [#/Vol] 1.97 10*3/uL 0.83-4.51 [facility] Lymphocytes/100 WBC Auto (Un sp spec)Ordered By: Renard Burgos on 04-01-2024 Lymphocytes/100 WBC (Bld) 20.0 % 19-41 [facility] MCV (mean corpuscular volume ) determinationOrdered By: Renard Burgos on 04-01-2024 MCV (RBC) [Entitic vol] 91.0 fL 80-94 [facility] Mean corpuscular hemoglobin (MCH) determinationOrdered By: Renard Burgos on 04-01-2024 MCH (RBC) [Entitic mass] 29.7 pg 27.0-32.0 [facility] Mean corpuscular hemoglobin concentration (MCHC) determinationOrdered By: Renard Burgos on 04-01-2024 MCHC (RBC) [Mass/Vol] 32.6 g/dL 32-36 [facility] Mean platelet volume determi nationOrdered By: Renard Burgos on 04-01-2024 Platelet mean volume (Bld) [Entitic vol] 11.3 fL 6.2-12.0 [facility] Monocyte percentageOrdered B y: Renard Burgos on 04-01-2024 Monocytes/100 WBC (Bld) 7.1 % 0-10 [facility] Neutrophil percentageOrdered By: Renard Burgos on 04-01-2024 Neutrophils/100 WBC (Bld) 71.8 % High 47-70 [facility] Nucleated red blood cell per centageOrdered By: Renard Burgos on 04-01-2024 Nucleated RBC/100 WBC (Bld) [Ratio] 0 % 0-5 [facility] Platelet countOrdered By: Garrick Bhatt on 04-01-2024 Platelets (Bld) [#/Vol] 195 10*3/uL 150-450 [facility] RBC Auto (Bld) [#/Vol]Ordere d By: Renard Burgos on 04-01-2024 RBC (Bld) [#/Vol] 4.58 10*6/uL Low 4.6-6.2 [facility] White blood cell (WBC) count Ordered By: Renard Burgos on 04-01-2024 WBC (Bld) [#/Vol] 9.8 10*3/uL 4.4-11.0 [facility] Absolute neutrophil countOrd ered By: Renard Burgos on 03-25-2024 Neutrophils (Bld) [#/Vol] 5.4 10*3/uL 2.0-7.7 [facility] Basophil percentageOrdered B y: Renard Burgos on 03-25-2024 Basophils/100 WBC (Bld) 0.5 % 0-1 [facility] CBC W/Diff, Automatedon 11-2 Absolute Lymph 2.14 X10 3/uL Normal 0.83-4.51 [facility] Comment on above: Order Comment: 109-1 Performed By: #### L 100.0100 ####[facility] [address] [place], [address] Absolute Neut 5.4 X10 3/uL Normal 2.0-7.7 [facility] Comment on above: Order Comment: 109-1 Performed By: #### L 100.0100 ####[facility] [address] [place], [address] Basophils/100 WBC (Bld) 0.5 % Normal 0-1 [facility] Comment on above: Order Comment: 109-1 Performed By: #### L 100.0100 ####[facility] [address] [place], [address] Eosinophils/100 WBC (Bld) 0.7 % Normal 0-5 [facility] Comment on above: Order Comment: 109-1 Performed By: #### L 100.0100 ####[facility] [address] [place], [address] Erythrocyte distribution width (RBC) [Ratio] 12.7 % Normal 11.6-14.6 [facility] Comment on above: Order Comment: 109-1 Performed By: #### L 100.0100 ####[facility] [address] [place], [address] Hematocrit (Bld) [Volume fraction] 42.3 % Normal 40-54 [facility] Comment on above: Order Comment: 109-1 Performed By: #### L 100.0100 ####[facility] [address] [place], [address] Hemoglobin (Bld) [Mass/Vol] 13.7 g/dL Normal 13.0-16.5 [facility] Comment on above: Order Comment: 109-1 Performed By: #### L 100.0100 ####[facility] [address] [place], [address] IG% 0.500 Normal 0.0-0.9 [facility] Comment on above: Order Comment: 109-1 Result Comment: IG% - Immature Granulocytes (promyelocytes, myelocytes andmetamyelocytes) > 1% indicates that a LEFT SHIFT is Present. Performed By: #### L 100.0100 ####[facility] [address] [place], [address] Lymphocytes/100 WBC (Bld) 25.8 % Normal 19-41 [facility] Comment on above: Order Comment: 109-1 Performed By: #### L 100.0100 ####[facility] [address] [place], [address] MCH (RBC) [Entitic mass] 29.2 pg Normal 27.0-32.0 [facility] Comment on above: Order Comment: 109-1 Performed By: #### L 100.0100 ####[facility] [address] [place], [address] MCHC (RBC) [Mass/Vol] 32.4 g/dL Normal 32-36 [facility] [facility] Comment on above: Order Comment: 109-1 Performed By: #### L 100.0100 ####[facility] [address] [place], [address] MCV (RBC) [Entitic vol] 90.2 fL Normal 80-94 [facility] Comment on above: Order Comment: 109-1 Performed By: #### L 100.0100 ####[facility] [address] [place], [address] Monocytes/100 WBC (Bld) 8.0 % Normal 0-10 [facility] Comment on above: Order Comment: 109-1 Performed By: #### L 100.0100 ####[facility] [address] [place], [address] Neutrophils/100 WBC (Bld) 64.5 % Normal 47-70 [facility] Comment on above: Order Comment: 109-1 Performed By: #### L 100.0100 ####[facility] [address] [place], [address] Nucleated RBC (Bld) [#/Vol] 0 10*3/uL Normal 0-5 [facility] Comment on above: Order Comment: 109-1 Performed By: #### L 100.0100 ####[facility] [address] [place], [address] Platelet mean volume (Bld) [Entitic vol] 11.2 fL Normal 6.2-12.0 [facility] Comment on above: Order Comment: 109-1 Performed By: #### L 100.0100 ####[facility] [address] [place], [address] Platelets (Bld) [#/Vol] 204 10*3/uL Normal 150-450 [facility] Comment on above: Order Comment: 109-1 Performed By: #### L 100.0100 ####[facility] [address] [place], [address] RBC (Bld) [#/Vol] 4.69 10*6/uL Normal 4.6-6.2 [facility] Comment on above: Order Comment: 109-1 Performed By: #### L 100.0100 ####[facility] [address] [place], [address] RDW SD 41.8 fl Normal 35.1-43.9 [facility] Comment on above: Order Comment: 109-1 Performed By: #### L 100.0100 ####[facility] [address] [place], [address] WBC (Bld) [#/Vol] 8.3 10*3/uL Normal 4.4-11.0 [facility] Comment on above: Order Comment: 109-1 Performed By: #### L 100.0100 ####[facility] [address] [place], [address] Eosinophil percentageOrdered By: Renard Burgos on 03-25-2024 Eosinophils/100 WBC (Bld) 0.7 % 0-5 [facility] Erythrocyte distribution wid th ratioOrdered By: Renard Burgos on 03-25-2024 Erythrocyte distribution width (RBC) [Ratio] 12.7 % 11.6-14.6 [facility] Erythrocyte distribution wid th standard deviationOrdered By: Renard Burgos on 03-25-2024 Erythrocyte distribution width (RBC) [Entitic vol] 41.8 fL 35.1-43.9 [facility] Hematocrit Auto (Bld) [Volum e fraction]Ordered By: Renard Burgos on 03-25-2024 Hematocrit (Bld) [Volume fraction] 42.3 % 40-54 [facility] Hemoglobin measurementOrdere d By: Renard Burgos on 03-25-2024 Hemoglobin (Bld) [Mass/Vol] 13.7 g/dL 13.0-16.5 [facility] Immature granulocytes/100 WB C Auto (Bld)Ordered By: Renard Burgos on 03-25-2024 Immature granulocytes/100 WBC (Bld) 0.500 % 0.0-0.9 [facility] Comment on above: IG% - Immature Granu locytes (promyelocytes, myelocytes and metamyelocytes) > 1% indicates that a LEFT SHIFT is Present. Lymphocytes Auto (Unsp spec) [#/Vol]Ordered By: Renard Burgos on 03-25-2024 Lymphocytes (Bld) [#/Vol] 2.14 10*3/uL 0.83-4.51 [facility] Lymphocytes/100 WBC Auto (Un sp spec)Ordered By: Renard Burgos on 03-25-2024 Lymphocytes/100 WBC (Bld) 25.8 % 19-41 [facility] MCV (mean corpuscular volume ) determinationOrdered By: Renard Burgos on 03-25-2024 MCV (RBC) [Entitic vol] 90.2 fL 80-94 [facility] Mean corpuscular hemoglobin (MCH) determinationOrdered By: Renard Burgos on 03-25-2024 MCH (RBC) [Entitic mass] 29.2 pg 27.0-32.0 [facility] Mean corpuscular hemoglobin concentration (MCHC) determinationOrdered By: Renard Burgos on 03-25-2024 MCHC (RBC) [Mass/Vol] 32.4 g/dL 32-36 [facility] Mean platelet volume determi nationOrdered By: Renard Burgos on 03-25-2024 Platelet mean volume (Bld) [Entitic vol] 11.2 fL 6.2-12.0 [facility] Monocyte percentageOrdered B y: Renard Burgos on 03-25-2024 Monocytes/100 WBC (Bld) 8.0 % 0-10 [facility] Neutrophil percentageOrdered By: Renard Burgos on 03-25-2024 Neutrophils/100 WBC (Bld) 64.5 % 47-70 [facility] Nucleated red blood cell per centageOrdered By: Renard Burgos on 03-25-2024 Nucleated RBC/100 WBC (Bld) [Ratio] 0 % 0-5 [facility] Platelet countOrdered By: Garrick Bhatt on 03-25-2024 Platelets (Bld) [#/Vol] 204 10*3/uL 150-450 [facility] RBC Auto (Bld) [#/Vol]Ordere d By: Renard Burgos on 03-25-2024 RBC (Bld) [#/Vol] 4.69 10*6/uL 4.6-6.2 [facility] White blood cell (WBC) count Ordered By: Renard Burgos on 03-25-2024 WBC (Bld) [#/Vol] 8.3 10*3/uL 4.4-11.0 [facility] Absolute neutrophil countOrd ered By: Renard Burgos on 03-18-2024 Neutrophils (Bld) [#/Vol] 5.2 10*3/uL 2.0-7.7 [facility] Basophil percentageOrdered B y: Renard Burgos on 11-18-2024 Basophils/100 WBC (Bld) 0.6 % 0-1 [facility] CBC W/Diff, Automatedon 03-01 Absolute Lymph 2.23 X10 3/uL Normal 0.83-4.51 [facility] Comment on above: Order Comment: 109.1 Performed By: #### L 100.0100 ####[facility] [address] [place], [address] Absolute Neut 5.2 X10 3/uL Normal 2.0-7.7 [facility] Comment on above: Order Comment: 109.1 Performed By: #### L 100.0100 ####[facility] [address] [place], [address] Basophils/100 WBC (Bld) 0.6 % Normal 0-1 [facility] Comment on above: Order Comment: 109.1 Performed By: #### L 100.0100 ####[facility] [address] [place], [address] Eosinophils/100 WBC (Bld) 0.7 % Normal 0-5 [facility] Comment on above: Order Comment: 109.1 Performed By: #### L 100.0100 ####[facility] [address] [place], [address] Erythrocyte distribution width (RBC) [Ratio] 12.8 % Normal 11.6-14.6 [facility] Comment on above: Order Comment: 109.1 Performed By: #### L 100.0100 ####[facility] [address] [place], [address] Hematocrit (Bld) [Volume fraction] 42.0 % Normal 40-54 [facility] Comment on above: Order Comment: 109.1 Performed By: #### L 100.0100 ####[facility] [address] [place], [address] Hemoglobin (Bld) [Mass/Vol] 13.6 g/dL Normal 13.0-16.5 [facility] Comment on above: Order Comment: 109.1 Performed By: #### L 100.0100 ####[facility] [address] [place], [address] IG% 0.500 Normal 0.0-0.9 [facility] Comment on above: Order Comment: 109.1 Result Comment: IG% - Immature Granulocytes (promyelocytes, myelocytes andmetamyelocytes) > 1% indicates that a LEFT SHIFT is Present. Performed By: #### L 100.0100 ####[facility] [address] [place], [address] Lymphocytes/100 WBC (Bld) 27.0 % Normal 19-41 [facility] Comment on above: Order Comment: 109.1 Performed By: #### L 100.0100 ####[facility] [address] [place], [address] MCH (RBC) [Entitic mass] 29.5 pg Normal 27.0-32.0 [facility] Comment on above: Order Comment: 109.1 Performed By: #### L 100.0100 ####[facility] [address] [place], [address] MCHC (RBC) [Mass/Vol] 32.4 g/dL Normal 32-36 [facility] Comment on above: Order Comment: 109.1 Performed By: #### L 100.0100 ####[facility] [address] [place], [address] MCV (RBC) [Entitic vol] 91.1 fL Normal 80-94 [facility] Comment on above: Order Comment: 109.1 Performed By: #### L 100.0100 ####[facility] [address] [place], [address] Monocytes/100 WBC (Bld) 8.5 % Normal 0-10 [facility] Comment on above: Order Comment: 109.1 Performed By: #### L 100.0100 ####[facility] [address] [place], [address] Neutrophils/100 WBC (Bld) 62.7 % Normal 47-70 [facility] Comment on above: Order Comment: 109.1 Performed By: #### L 100.0100 ####[facility] [address] [place], [address] Nucleated RBC (Bld) [#/Vol] 0 10*3/uL Normal 0-5 [facility] Comment on above: Order Comment: 109.1 Performed By: #### L 100.0100 ####[facility] [address] [place], [address] Platelet mean volume (Bld) [Entitic vol] 10.8 fL Normal 6.2-12.0 [facility] Comment on above: Order Comment: 109.1 Performed By: #### L 100.0100 ####[facility] [address] [place], [address] Platelets (Bld) [#/Vol] 211 10*3/uL Normal 150-450 [facility] Comment on above: Order Comment: 109.1 Performed By: #### L 100.0100 ####[facility] [address] [place], [address] RBC (Bld) [#/Vol] 4.61 10*6/uL Normal 4.6-6.2 [facility] Comment on above: Order Comment: 109.1 Performed By: #### L 100.0100 ####[facility] [address] [place], [address] RDW SD 42.3 fl Normal 35.1-43.9 [facility] Comment on above: Order Comment: 109.1 Performed By: #### L 100.0100 ####[facility] [address] [place], [address] WBC (Bld) [#/Vol] 8.3 10*3/uL Normal 4.4-11.0 [facility] Comment on above: Order Comment: 109.1 Performed By: #### L 100.0100 ####[facility] [address] [place], [place], [address] Eosinophil percentageOrdered By: Renard Burgos on 03-18-2024 Eosinophils/100 WBC (Bld) 0.7 % 0-5 [facility] Erythrocyte distribution wid th ratioOrdered By: Renard Burgos on 03-18-2024 Erythrocyte distribution width (RBC) [Ratio] 12.8 % 11.6-14.6 [facility] Erythrocyte distribution wid th standard deviationOrdered By: Renard Burgos on 03-18-2024 Erythrocyte distribution width (RBC) [Entitic vol] 42.3 fL 35.1-43.9 [facility] Hematocrit Auto (Bld) [Volum e fraction]Ordered By: Renard Burgos on 03-18-2024 Hematocrit (Bld) [Volume fraction] 42.0 % 40-54 [facility] Hemoglobin measurementOrdere d By: Renard Burgos on 03-18-2024 Hemoglobin (Bld) [Mass/Vol] 13.6 g/dL 13.0-16.5 [facility] Immature granulocytes/100 WB C Auto (Bld)Ordered By: Renard Burgos on 03-18-2024 Immature granulocytes/100 WBC (Bld) 0.500 % 0.0-0.9 [facility] Comment on above: IG% - Immature Granu locytes (promyelocytes, myelocytes and metamyelocytes) > 1% indicates that a LEFT SHIFT is Present. Lymphocytes Auto (Unsp spec) [#/Vol]Ordered By: Renard Burgos on 03-18-2024 Lymphocytes (Bld) [#/Vol] 2.23 10*3/uL 0.83-4.51 [facility] Lymphocytes/100 WBC Auto (Un sp spec)Ordered By: Renard Burgos on 03-18-2024 Lymphocytes/100 WBC (Bld) 27.0 % 19-41 [facility] MCV (mean corpuscular volume ) determinationOrdered By: Renard Burgos on 03-18-2024 MCV (RBC) [Entitic vol] 91.1 fL 80-94 [facility] Mean corpuscular hemoglobin (MCH) determinationOrdered By: Renard Burgos on 03-18-2024 MCH (RBC) [Entitic mass] 29.5 pg 27.0-32.0 [facility] Mean corpuscular hemoglobin concentration (MCHC) determinationOrdered By: Renard Burgos on 03-18-2024 MCHC (RBC) [Mass/Vol] 32.4 g/dL 32-36 [facility] Mean platelet volume determi nationOrdered By: Renard Burgos on 03-18-2024 Platelet mean volume (Bld) [Entitic vol] 10.8 fL 6.2-12.0 [facility] Monocyte percentageOrdered B y: Renard Burgos on 03-18-2024 Monocytes/100 WBC (Bld) 8.5 % 0-10 [facility] Neutrophil percentageOrdered By: Renard Burgos on 03-18-2024 Neutrophils/100 WBC (Bld) 62.7 % 47-70 [facility] Nucleated red blood cell per centageOrdered By: Renard Burgos on 03-18-2024 Nucleated RBC/100 WBC (Bld) [Ratio] 0 % 0-5 [facility] Platelet countOrdered By: Garrick Bhatt on 03-18-2024 Platelets (Bld) [#/Vol] 211 10*3/uL 150-450 [facility] RBC Auto (Bld) [#/Vol]Ordere d By: Renard Burgos on 03-18-2024 RBC (Bld) [#/Vol] 4.61 10*6/uL 4.6-6.2 [facility] White blood cell (WBC) count Ordered By: Renard Burgos on 03-18-2024 WBC (Bld) [#/Vol] 8.3 10*3/uL 4.4-11.0 [facility] Absolute neutrophil countOrd ered By: Renard Burgos on 03-11-2024 Neutrophils (Bld) [#/Vol] 6.2 10*3/uL 2.0-7.7 [facility] Automated blood erythrocyte countOrdered By: Renard Burgos on 03-11-2024 RBC (Bld) [#/Vol] 4.54 10*6/uL Low 4.6-6.2 [facility] Comment on above: Order Comment: 109.1 Performed By: #### L 100.0100 ####[facility] [address] [place], [address] Automated blood hematocrit ( percentage)Ordered By: Renard Burgso on 03-11-2024 Hematocrit (Bld) [Volume fraction] 41.5 % Normal 40-54 [facility] Comment on above: Order Comment: 109.1 Performed By: #### L 100.0100 ####[facility] [address] [place], [address] Automated lymphocyte count a s percentage of total leukocytesOrdered By: Renard Burgos on 03-11-2024 Lymphocytes/100 WBC (Bld) 25.6 % Normal 19-41 [facility] Comment on above: Order Comment: 109.1 Performed By: #### L 100.0100 ####[facility] [address] [place], [address] Basophil percentageOrdered B y: Renard Burgos on 03-11-2024 Basophils/100 WBC (Bld) 0.5 % Normal 0-1 [facility] Comment on above: Order Comment: 109.1 Performed By: #### L 100.0100 ####[facility] [address] [place], [address] CBC W/Diff, Automatedon 03-01 Absolute Lymph 2.50 X10 3/uL Normal 0.83-4.51 [facility] Comment on above: Order Comment: 109.1 Performed By: #### L 100.0100 ####[facility] [address] [place], [address] Absolute Neut 6.2 X10 3/uL Normal 2.0-7.7 [facility] Comment on above: Order Comment: 109.1 Performed By: #### L 100.0100 ####[facility] [address] [place], [address] IG% 0.500 Normal 0.0-0.9 [facility] Comment on above: Order Comment: 109.1 Result Comment: IG% - Immature Granulocytes (promyelocytes, myelocytes andmetamyelocytes) > 1% indicates that a LEFT SHIFT is Present. Performed By: #### L 100.0100 ####[facility] [address] [place], [address] Nucleated RBC (Bld) [#/Vol] 0 10*3/uL Normal 0-5 [facility] Comment on above: Order Comment: 109.1 Performed By: #### L 100.0100 ####[facility] [address] [place], [address] RDW SD 41.5 fl Normal 35.1-43.9 [facility] Comment on above: Order Comment: 109.1 Performed By: #### L 100.0100 ####[facility] [address] [place], [address] Eosinophil percentageOrdered By: Renard Burgos on 03-11-2024 Eosinophils/100 WBC (Bld) 0.6 % Normal 0-5 [facility] Comment on above: Order Comment: 109.1 Performed By: #### L 100.0100 ####[facility] [address] [place], [address] Erythrocyte distribution wid th ratioOrdered By: Renard Burgos on 03-11-2024 Erythrocyte distribution width (RBC) [Ratio] 12.7 % Normal 11.6-14.6 [facility] Comment on above: Order Comment: 109.1 Performed By: #### L 100.0100 ####[facility] [address] [place], [address] Erythrocyte distribution wid th standard deviationOrdered By: Renard Burgos on 03-11-2024 Erythrocyte distribution width (RBC) [Entitic vol] 41.5 fL 35.1-43.9 [facility] Hemoglobin measurementOrdere d By: Renard Burgos on 03-11-2024 Hemoglobin (Bld) [Mass/Vol] 13.8 g/dL Normal 13.0-16.5 [facility] Comment on above: Order Comment: 109.1 Performed By: #### L 100.0100 ####[facility] [address] [place], [address] Immature granulocytes/100 WB C Auto (Bld)Ordered By: Renard Burgos on 03-11-2024 Immature granulocytes/100 WBC (Bld) 0.500 % 0.0-0.9 [facility] Comment on above: IG% - Immature Granu locytes (promyelocytes, myelocytes and metamyelocytes) > 1% indicates that a LEFT SHIFT is Present. Lymphocytes Auto (Unsp spec) [#/Vol]Ordered By: Renard Burgos on 03-11-2024 Lymphocytes (Bld) [#/Vol] 2.50 10*3/uL 0.83-4.51 [facility] MCV (mean corpuscular volume ) determinationOrdered By: Renard Burgos on 03-11-2024 MCV (RBC) [Entitic vol] 91.4 fL Normal 80-94 [facility] Comment on above: Order Comment: 109.1 Performed By: #### L 100.0100 ####[facility] [address] [place], [address] Mean corpuscular hemoglobin (MCH) determinationOrdered By: Renard Burgos on 03-11-2024 MCH (RBC) [Entitic mass] 30.4 pg Normal 27.0-32.0 [facility] Comment on above: Order Comment: 109.1 Performed By: #### L 100.0100 ####[facility] [address] [place], [address] Mean corpuscular hemoglobin concentration (MCHC) determinationOrdered By: Renard Burgos on 03-11-2024 MCHC (RBC) [Mass/Vol] 33.3 g/dL Normal 32-36 [facility] Comment on above: Order Comment: 109.1 Performed By: #### L 100.0100 ####[facility] [address] [place], [address] Mean platelet volume determi nationOrdered By: Renard Burgos on 03-11-2024 Platelet mean volume (Bld) [Entitic vol] 11.0 fL Normal 6.2-12.0 [facility] Comment on above: Order Comment: 109.1 Performed By: #### L 100.0100 ####[facility] [address] [place], [address] Monocyte percentageOrdered B y: Renard Burgos on 03-11-2024 Monocytes/100 WBC (Bld) 9.0 % Normal 0-10 [facility] Comment on above: Order Comment: 109.1 Performed By: #### L 100.0100 ####[facility] [address] [place], [address] Neutrophil percentageOrdered By: Renard Burgos on 03-11-2024 Neutrophils/100 WBC (Bld) 63.8 % Normal 47-70 [facility] Comment on above: Order Comment: 109.1 Performed By: #### L 100.0100 ####[facility] [address] [place], [address] Nucleated red blood cell per centageOrdered By: Renard Burgos on 03-11-2024 Nucleated RBC/100 WBC (Bld) [Ratio] 0 % 0-5 [facility] Platelet countOrdered By: Garrick Bhatt on 03-11-2024 Platelets (Bld) [#/Vol] 220 10*3/uL Normal 150-450 [facility] Comment on above: Order Comment: 109.1 Performed By: #### L 100.0100 ####[facility] [address] [place], [address] White blood cell (WBC) count Ordered By: Renard Burgos on 03-11-2024 WBC (Bld) [#/Vol] 9.8 10*3/uL Normal 4.4-11.0 [facility] Comment on above: Order Comment: 109.1 Performed By: #### L 100.0100 ####[facility] [address] [place], [address] CBC W/Diff, Automatedon 11-0 Absolute Lymph 1.99 X10 3/uL Normal 0.83-4.51 [facility] Comment on above: Order Comment: 109.1 Performed By: #### L 100.0100 ####[facility] [address] [place], [address] Absolute Neut 5.3 X10 3/uL Normal 2.0-7.7 [facility] Comment on above: Order Comment: 109.1 Performed By: #### L 100.0100 ####[facility] [address] [place], [address] Basophils/100 WBC (Bld) 0.6 % Normal 0-1 [facility] Comment on above: Order Comment: 109.1 Performed By: #### L 100.0100 ####[facility] [address] [place], [address] Eosinophils/100 WBC (Bld) 0.7 % Normal 0-5 [facility] Comment on above: Order Comment: 109.1 Performed By: #### L 100.0100 ####[facility] [address] [place], [address] Erythrocyte distribution width (RBC) [Ratio] 12.7 % Normal 11.6-14.6 [facility] Comment on above: Order Comment: 109.1 Performed By: #### L 100.0100 ####[facility] [address] [place], [address] Hematocrit (Bld) [Volume fraction] 42.1 % Normal 40-54 [facility] Comment on above: Order Comment: 109.1 Performed By: #### L 100.0100 ####[facility] [address] [place], [address] Hemoglobin (Bld) [Mass/Vol] 14.0 g/dL Normal 13.0-16.5 [facility] Comment on above: Order Comment: 109.1 Performed By: #### L 100.0100 ####[facility] [address] [place], [address] IG% 0.400 Normal 0.0-0.9 [facility] Comment on above: Order Comment: 109.1 Result Comment: IG% - Immature Granulocytes (promyelocytes, myelocytes andmetamyelocytes) > 1% indicates that a LEFT SHIFT is Present. Performed By: #### L 100.0100 ####[facility] [address] [place], [address] Lymphocytes/100 WBC (Bld) 24.5 % Normal 19-41 [facility] Comment on above: Order Comment: 109.1 Performed By: #### L 100.0100 ####[facility] [address] [place], [address] MCH (RBC) [Entitic mass] 30.2 pg Normal 27.0-32.0 [facility] Comment on above: Order Comment: 109.1 Performed By: #### L 100.0100 ####[facility] [address] [place], [address] MCHC (RBC) [Mass/Vol] 33.3 g/dL Normal 32-36 [facility] Comment on above: Order Comment: 109.1 Performed By: #### L 100.0100 ####[facility] [address] [place], [address] MCV (RBC) [Entitic vol] 90.7 fL Normal 80-94 [facility] Comment on above: Order Comment: 109.1 Performed By: #### L 100.0100 ####[facility] [address] [place], [address] Monocytes/100 WBC (Bld) 8.2 % Normal 0-10 [facility] Comment on above: Order Comment: 109.1 Performed By: #### L 100.0100 ####[facility] [address] [place], [address] Neutrophils/100 WBC (Bld) 65.6 % Normal 47-70 [facility] Comment on above: Order Comment: 109.1 Performed By: #### L 100.0100 ####[facility] [address] [place], [address] Nucleated RBC (Bld) [#/Vol] 0 10*3/uL Normal 0-5 [facility] Comment on above: Order Comment: 109.1 Performed By: #### L 100.0100 ####[facility] [address] [place], [address] Platelet mean volume (Bld) [Entitic vol] 11.0 fL Normal 6.2-12.0 [facility] Comment on above: Order Comment: 109.1 Performed By: #### L 100.0100 ####[facility] [address] [place], [address] Platelets (Bld) [#/Vol] 216 10*3/uL Normal 150-450 [facility] Comment on above: Order Comment: 109.1 Performed By: #### L 100.0100 ####[facility] [address] [place], [address] RBC (Bld) [#/Vol] 4.64 10*6/uL Normal 4.6-6.2 [facility] Comment on above: Order Comment: 109.1 Performed By: #### L 100.0100 ####[facility] [address] [place], [address] RDW SD 41.9 fl Normal 35.1-43.9 [facility] Comment on above: Order Comment: 109.1 Performed By: #### L 100.0100 ####[facility] [address] [place], [address] WBC (Bld) [#/Vol] 8.1 10*3/uL Normal 4.4-11.0 [facility] Comment on above: Order Comment: 109.1 Performed By: #### L 100.0100 ####[facility] [address] [place], [address] CBC W/Diff, Automatedon 10- Absolute Lymph 2.15 X10 3/uL Normal 0.83-4.51 [facility] Comment on above: Order Comment: 109.1 Performed By: #### L 100.0100 ####[facility] [address] [place], [address] Absolute Neut 7.1 X10 3/uL Normal 2.0-7.7 [facility] Comment on above: Order Comment: 109.1 Performed By: #### L 100.0100 ####[facility] [address] [place], [address] Basophils/100 WBC (Bld) 0.4 % Normal 0-1 [facility] Comment on above: Order Comment: 109.1 Performed By: #### L 100.0100 ####[facility] [address] [place], [address] Eosinophils/100 WBC (Bld) 0.6 % Normal 0-5 [facility] Comment on above: Order Comment: 109.1 Performed By: #### L 100.0100 ####[facility] [address] [place], [address] Erythrocyte distribution width (RBC) [Ratio] 12.6 % Normal 11.6-14.6 [facility] Comment on above: Order Comment: 109.1 Performed By: #### L 100.0100 ####[facility] [address] [place], [address] Hematocrit (Bld) [Volume fraction] 40.2 % Normal 40-54 [facility] Comment on above: Order Comment: 109.1 Performed By: #### L 100.0100 ####[facility] [address] [place], [address] Hemoglobin (Bld) [Mass/Vol] 13.6 g/dL Normal 13.0-16.5 [facility] Comment on above: Order Comment: 109.1 Performed By: #### L 100.0100 ####[facility] [address] [place], [address] IG% 0.500 Normal 0.0-0.9 [facility] Comment on above: Order Comment: 109.1 Result Comment: IG% - Immature Granulocytes (promyelocytes, myelocytes andmetamyelocytes) > 1% indicates that a LEFT SHIFT is Present. Performed By: #### L 100.0100 ####[facility] [address] [place], [address] Lymphocytes/100 WBC (Bld) 20.9 % Normal 19-41 [facility] Comment on above: Order Comment: 109.1 Performed By: #### L 100.0100 ####[facility] [address] [place], [address] MCH (RBC) [Entitic mass] 30.6 pg Normal 27.0-32.0 [facility] Comment on above: Order Comment: 109.1 Performed By: #### L 100.0100 ####[facility] [address] [place], [address] MCHC (RBC) [Mass/Vol] 33.8 g/dL Normal 32-36 [facility] Comment on above: Order Comment: 109.1 Performed By: #### L 100.0100 ####[facility] [address] [place], [address] MCV (RBC) [Entitic vol] 90.5 fL Normal 80-94 [facility] Comment on above: Order Comment: 109.1 Performed By: #### L 100.0100 ####[facility] [address] [place], [address] Monocytes/100 WBC (Bld) 8.5 % Normal 0-10 [facility] Comment on above: Order Comment: 109.1 Performed By: #### L 100.0100 ####[facility] [address] [place], [address] Neutrophils/100 WBC (Bld) 69.1 % Normal 47-70 [facility] Comment on above: Order Comment: 109.1 Performed By: #### L 100.0100 ####[facility] [address] [place], [address] Nucleated RBC (Bld) [#/Vol] 0 10*3/uL Normal 0-5 [facility] Comment on above: Order Comment: 109.1 Performed By: #### L 100.0100 ####[facility] [address] [place], [address] Platelet mean volume (Bld) [Entitic vol] 11.2 fL Normal 6.2-12.0 [facility] Comment on above: Order Comment: 109.1 Performed By: #### L 100.0100 ####[facility] [address] [place], [address] Platelets (Bld) [#/Vol] 226 10*3/uL Normal 150-450 [facility] Comment on above: Order Comment: 109.1 Performed By: #### L 100.0100 ####[facility] [address] [place], [address] RBC (Bld) [#/Vol] 4.44 10*6/uL Low 4.6-6.2 [facility] Comment on above: Order Comment: 109.1 Performed By: #### L 100.0100 ####[facility] [address] [place], [address] RDW SD 41.5 fl Normal 35.1-43.9 [facility] Comment on above: Order Comment: 109.1 Performed By: #### L 100.0100 ####[facility] [address] [place], [address] WBC (Bld) [#/Vol] 10.3 10*3/uL Normal 4.4-11.0 [facility] Comment on above: Order Comment: 109.1 Performed By: #### L 100.0100 ####[facility] [address] [place], [address] CBC-Complete Blood Cnt No Di ffon 02-23-2024 Erythrocyte distribution width (RBC) [Ratio] 12.9 % Normal 11.6-14.6 [facility] Comment on above: Order Comment: 109-1 Performed By: #### L 500.4100, L500.4050, L100.0500 ####[facility] [address] [place], [address] Hematocrit (Bld) [Volume fraction] 41.6 % Normal 40-54 [facility] Comment on above: Order Comment: 109-1 Performed By: #### L 500.4100, L500.4050, L100.0500 ####[facility] [address] [place], [address] Hemoglobin (Bld) [Mass/Vol] 14.0 g/dL Normal 13.0-16.5 [facility] Comment on above: Order Comment: 109-1 Performed By: #### L 500.4100, L500.4050, L100.0500 ####[facility] [address] [place], [address] MCH (RBC) [Entitic mass] 30.6 pg Normal 27.0-32.0 [facility] Comment on above: Order Comment: 109-1 Performed By: #### L 500.4100, L500.4050, L100.0500 ####[facility] [address] [place], [address] MCHC (RBC) [Mass/Vol] 33.7 g/dL Normal 32-36 [facility] Comment on above: Order Comment: 109-1 Performed By: #### L 500.4100, L500.4050, L100.0500 ####[facility] [address] [place], [address] MCV (RBC) [Entitic vol] 91.0 fL Normal 80-94 [facility] Comment on above: Order Comment: 109-1 Performed By: #### L 500.4100, L500.4050, L100.0500 ####[facility] [address] [place], [address] Platelet mean volume (Bld) [Entitic vol] 11.5 fL Normal 6.2-12.0 [facility] Comment on above: Order Comment: 109-1 Performed By: #### L 500.4100, L500.4050, L100.0500 ####[facility] [address] [place], [address] Platelets (Bld) [#/Vol] 209 10*3/uL Normal 150-450 [facility] Comment on above: Order Comment: 109-1 Performed By: #### L 500.4100, L500.4050, L100.0500 ####[facility] [address] [place], [address] RBC (Bld) [#/Vol] 4.57 10*6/uL Low 4.6-6.2 [facility] Comment on above: Order Comment: 109-1 Performed By: #### L 500.4100, L500.4050, L100.0500 ####[facility] [address] [place], [address] RDW SD 42.4 fl Normal 35.1-43.9 [facility] Comment on above: Order Comment: 109-1 Performed By: #### L 500.4100, L500.4050, L100.0500 ####[facility] [address] [place], [address] WBC (Bld) [#/Vol] 8.4 10*3/uL Normal 4.4-11.0 [facility] Comment on above: Order Comment: 109-1 Performed By: #### L 500.4100, L500.4050, L100.0500 ####[facility] [address] [place], [address] Comprehensive Metabolic Prof [facility] 02-23-2024 Albumin [Mass/Vol] 3.1 g/dL Low 3.2-5.0 [facility] Comment on above: Order Comment: 109-1 Performed By: #### L 500.4100, L500.4050, L100.0500 ####[facility] [address] [place], [address] Albumin/Globulin [Mass ratio] 1.1 {ratio} Normal 0.9-2.4 [facility] Comment on above: Order Comment: 109-1 Performed By: #### L 500.4100, L500.4050, L100.0500 ####[facility] [address] [place], [address] ALK P 123 U/L High 45-117 [facility] Comment on above: Order Comment: 109-1 Performed By: #### L 500.4100, L500.4050, L100.0500 ####[facility] [address] [place], [address] ALT [Catalytic activity/Vol] 16 U/L Normal 16-61 [facility] Comment on above: Order Comment: 109-1 Performed By: #### L 500.4100, L500.4050, L100.0500 ####[facility] [address] [place], [address] AST [Catalytic activity/Vol] 10 U/L Low 15-37 [facility] Comment on above: Order Comment: 109-1 Performed By: #### L 500.4100, L500.4050, L100.0500 ####[facility] [address] [place], [address] Bilirubin [Mass/Vol] 0.50 mg/dL Normal 0.20-1.00 [facility] Comment on above: Order Comment: 109-1 Result Comment: For patients on eltrombopag therapy, use of Dimension [place] TBIL is not recommended. Performed By: #### L 500.4100, L500.4050, L100.0500 ####[facility] [address] [place], [address] BUN/CRE 24.9 RATIO High 10-20 [facility] Comment on above: Order Comment: 109-1 Performed By: #### L 500.4100, L500.4050, L100.0500 ####[facility] [address] [place], [address] CA,Total 8.5 mg/dL Normal 8.5-10.1 [facility] Comment on above: Order Comment: 109-1 Performed By: #### L 500.4100, L500.4050, L100.0500 ####[facility] [address] [place], [address] Chloride [Moles/Vol] 109 mmol/L High 98-107 [facility] Comment on above: Order Comment: 109-1 Performed By: #### L 500.4100, L500.4050, L100.0500 ####[facility] [address] [place], [address] CO2 [Moles/Vol] 27.0 mmol/L Normal 21.0-32.0 [facility] Comment on above: Order Comment: 109-1 Performed By: #### L 500.4100, L500.4050, L100.0500 ####[facility] [address] [place], [address] Creatinine [Mass/Vol] 0.64 mg/dL Low 0.70-1.30 [facility] Comment on above: Order Comment: 109- Result Comment: The validity of the calculated GFR GFRAA in patients over70 years has not been determined. Clinical correlation isessential. Performed By: #### L 500.4100, L500.4050, L100.0500 ####[facility] [address] [place], [address] EST GFR - AA 160 mL/min Normal >60 [facility] Comment on above: Order Comment: 109-1 Result Comment: Afri can Latvian GFR Calc Performed By: #### L 500.4100, L500.4050, L100.0500 ####[facility] [address] [place], [address] GAP 6 Normal 5-15 [facility] Comment on above: Order Comment: 109-1 Performed By: #### L 500.4100, L500.4050, L100.0500 ####[facility] [address] [place], [address] GFR/1.73 sq M.predicted among non-blacks MDRD (S/P/Bld) [Vol rate/Area] 132 mL/min/{1.73_m2} Normal >60 [facility] Comment on above: Order Comment: 109-1 Result Comment: Non- GFR Calc Performed By: #### L 500.4100, L500.4050, L100.0500 ####[facility] [address] [place], [address] Globulin (S) [Mass/Vol] 2.9 g/dL Normal 2.2-4.2 [facility] Comment on above: Order Comment: 109-1 Performed By: #### L 500.4100, L500.4050, L100.0500 ####[facility] [address] [place], [address] Glucose [Mass/Vol] 111 mg/dL High 74-106 [facility] Comment on above: Order Comment: 109-1 Result Comment: Fast ing Glucose result from 100 to 125 mg/dLsuggests IMPAIRED HOMEOSTASIS per A.D.A. criteria. Performed By: #### L 500.4100, L500.4050, L100.0500 ####[facility] [address] [place], [address] Potassium [Moles/Vol] 3.6 mmol/L Normal 3.5-5.1 [facility] Comment on above: Order Comment: 109-1 Performed By: #### L 500.4100, L500.4050, L100.0500 ####[facility] [address] [place], [address] Sodium [Moles/Vol] 141 mmol/L Normal 136-145 [facility] Comment on above: Order Comment: 109-1 Performed By: #### L 500.4100, L500.4050, L100.0500 ####[facility] [address] [place], [address] T PROT 6.0 g/dL Low 6.4-8.2 [facility] Comment on above: Order Comment: 109-1 Performed By: #### L 500.4100, L500.4050, L100.0500 ####[facility] [address] [place], [address] Urea nitrogen [Mass/Vol] 16 mg/dL Normal 7-18 [facility] Comment on above: Order Comment: 109-1 Performed By: #### L 500.4100, L500.4050, L100.0500 ####[facility] [address] [place], [address] Lipid Profileon 02-23-2024 Cholesterol [Mass/Vol] 123 mg/dL Normal 200 [facility] Comment on above: Order Comment: 109-1 Result Comment: <200 mg/dL Desirable 200-240 mg/dL Borderline >240 mg/dL High Risk Performed By: #### L 500.4100, L500.4050, L100.0500 ####[facility] [address] [place], [address] Cholesterol in HDL [Mass/Vol] 28 mg/dL Low [facility] Comment on above: Order Comment: 109-1 Result Comment: The drugs N-Acetylcysteine and Metamizole may falselydepress this assay. Reference Range HDL <40 mg/dL Low HDL Cholesterol HDL >or= 60 mg/dL High HDL Cholesterol Performed By: #### L 500.4100, L500.4050, L100.0500 ####[facility] [address] [place], [address] Cholesterol in LDL [Mass/Vol] 71 mg/dL Normal 0-130 [facility] Comment on above: Order Comment: 109-1 Performed By: #### L 500.4100, L500.4050, L100.0500 ####[facility] [address] [place], [address] Cholesterol in VLDL [Mass/Vol] 24 mg/dL Normal 5-40 [facility] Comment on above: Order Comment: 109-1 Performed By: #### L 500.4100, L500.4050, L100.0500 ####[facility] [address] [place], [address] Triglyceride [Mass/Vol] 119 mg/dL Normal [facility] Comment on above: Order Comment: 109-1 Result Comment: The drugs N-Acetylcysteine and Metamizole may falselydepress this assay.Serum Triglycerides Reference Interval Normal <150 mg/dL Borderline high 150 - 199 mg/dL High 200 - 499 mg/dL Very High > or = 500 mg/dL Performed By: #### L 500.4100, L500.4050, L100.0500 ####[facility] [address] [place], [address] CBC W/Diff, Automatedon 10-2 Absolute Lymph 1.92 X10 3/uL Normal 0.83-4.51 [facility] Comment on above: Order Comment: 109-1 Performed By: #### L 100.0100 ####[facility] [address] [place], [address] Absolute Neut 6.9 X10 3/uL Normal 2.0-7.7 [facility] Comment on above: Order Comment: 109-1 Performed By: #### L 100.0100 ####[facility] [address] [place], [address] Basophils/100 WBC (Bld) 0.4 % Normal 0-1 [facility] Comment on above: Order Comment: 109-1 Performed By: #### L 100.0100 ####[facility] [address] [place], [address] Eosinophils/100 WBC (Bld) 0.6 % Normal 0-5 [facility] Comment on above: Order Comment: 109-1 Performed By: #### L 100.0100 ####[facility] [address] [place], [address] Erythrocyte distribution width (RBC) [Ratio] 12.9 % Normal 11.6-14.6 [facility] Comment on above: Order Comment: 109-1 Performed By: #### L 100.0100 ####[facility] [address] [place], [address] Hematocrit (Bld) [Volume fraction] 40.4 % Normal 40-54 [facility] Comment on above: Order Comment: 109-1 Performed By: #### L 100.0100 ####[facility] [address] [place], [address] Hemoglobin (Bld) [Mass/Vol] 13.3 g/dL Normal 13.0-16.5 [facility] Comment on above: Order Comment: 109-1 Performed By: #### L 100.0100 ####[facility] [address] [place], [address] IG% 0.300 Normal 0.0-0.9 [facility] Comment on above: Order Comment: 109-1 Result Comment: IG% - Immature Granulocytes (promyelocytes, myelocytes andmetamyelocytes) > 1% indicates that a LEFT SHIFT is Present. Performed By: #### L 100.0100 ####[facility] [address] [place], [address] Lymphocytes/100 WBC (Bld) 20.1 % Normal 19-41 [facility] Comment on above: Order Comment: 109-1 Performed By: #### L 100.0100 ####[facility] [address] [place], [address] MCH (RBC) [Entitic mass] 30.2 pg Normal 27.0-32.0 [facility] Comment on above: Order Comment: 109-1 Performed By: #### L 100.0100 ####[facility] [address] [place], [address] MCHC (RBC) [Mass/Vol] 32.9 g/dL Normal 32-36 [facility] Comment on above: Order Comment: 109-1 Performed By: #### L 100.0100 ####[facility] [address] [place], [address] MCV (RBC) [Entitic vol] 91.6 fL Normal 80-94 [facility] Comment on above: Order Comment: 109-1 Performed By: #### L 100.0100 ####[facility] [address] [place], [address] Monocytes/100 WBC (Bld) 6.8 % Normal 0-10 [facility] Comment on above: Order Comment: 109-1 Performed By: #### L 100.0100 ####[facility] [address] [place], [address] Neutrophils/100 WBC (Bld) 71.8 % High 47-70 [facility] Comment on above: Order Comment: 109-1 Performed By: #### L 100.0100 ####[facility] [address] [place], [address] Nucleated RBC (Bld) [#/Vol] 0 10*3/uL Normal 0-5 [facility] Comment on above: Order Comment: 109-1 Performed By: #### L 100.0100 ####[facility] [address] [place], [address] Platelet mean volume (Bld) [Entitic vol] 10.9 fL Normal 6.2-12.0 [facility] Comment on above: Order Comment: 109-1 Performed By: #### L 100.0100 ####[facility] [address] [place], [address] Platelets (Bld) [#/Vol] 209 10*3/uL Normal 150-450 [facility] Comment on above: Order Comment: 109-1 Performed By: #### L 100.0100 ####[facility] [address] [place], [address] RBC (Bld) [#/Vol] 4.41 10*6/uL Low 4.6-6.2 [facility] Comment on above: Order Comment: 109-1 Performed By: #### L 100.0100 ####[facility] [address] [place], [address] RDW SD 42.8 fl Normal 35.1-43.9 [facility] Comment on above: Order Comment: 109-1 Performed By: #### L 100.0100 ####[facility] [address] [place], [address] WBC (Bld) [#/Vol] 9.6 10*3/uL Normal 4.4-11.0 [facility] Comment on above: Order Comment: 109-1 Performed By: #### L 100.0100 ####[facility] [address] [place], [address] CBC W/Diff, Automatedon 10-05 04-2023 Absolute Lymph 2.08 X10 3/uL Normal 0.83-4.51 [facility] Comment on above: Order Comment: 109.1 Performed By: #### L 100.0100 ####[facility] [address] [place], [address] Absolute Neut 6.9 X10 3/uL Normal 2.0-7.7 [facility] Comment on above: Order Comment: 109.1 Performed By: #### L 100.0100 ####[facility] [address] [place], [address] Basophils/100 WBC (Bld) 0.5 % Normal 0-1 [facility] Comment on above: Order Comment: 109.1 Performed By: #### L 100.0100 ####[facility] [address] [place], [address] Eosinophils/100 WBC (Bld) 0.3 % Normal 0-5 [facility] Comment on above: Order Comment: 109.1 Performed By: #### L 100.0100 ####[facility] [address] [place], [address] Erythrocyte distribution width (RBC) [Ratio] 12.8 % Normal 11.6-14.6 [facility] Comment on above: Order Comment: 109.1 Performed By: #### L 100.0100 ####[facility] [address] [place], [address] Hematocrit (Bld) [Volume fraction] 40.6 % Normal 40-54 [facility] Comment on above: Order Comment: 109.1 Performed By: #### L 100.0100 ####[facility] [address] [place], [address] Hemoglobin (Bld) [Mass/Vol] 13.1 g/dL Normal 13.0-16.5 [facility] Comment on above: Order Comment: 109.1 Performed By: #### L 100.0100 ####[facility] [address] [place], [address] IG% 0.300 Normal 0.0-0.9 [facility] Comment on above: Order Comment: 109.1 Result Comment: IG% - Immature Granulocytes (promyelocytes, myelocytes andmetamyelocytes) > 1% indicates that a LEFT SHIFT is Present. Performed By: #### L 100.0100 ####[facility] [address] [place], [address] Lymphocytes/100 WBC (Bld) 21.2 % Normal 19-41 [facility] Comment on above: Order Comment: 109.1 Performed By: #### L 100.0100 ####[facility] [address] [place], [address] MCH (RBC) [Entitic mass] 29.8 pg Normal 27.0-32.0 [facility] Comment on above: Order Comment: 109.1 Performed By: #### L 100.0100 ####[facility] [address] [place], [address] MCHC (RBC) [Mass/Vol] 32.3 g/dL Normal 32-36 [facility] Comment on above: Order Comment: 109.1 Performed By: #### L 100.0100 ####[facility] [address] [place], [address] MCV (RBC) [Entitic vol] 92.5 fL Normal 80-94 [facility] Comment on above: Order Comment: 109.1 Performed By: #### L 100.0100 ####[facility] [address] [place], [address] Monocytes/100 WBC (Bld) 7.6 % Normal 0-10 [facility] Comment on above: Order Comment: 109.1 Performed By: #### L 100.0100 ####[facility] [address] [place], [address] Neutrophils/100 WBC (Bld) 70.1 % High 47-70 [facility] Comment on above: Order Comment: 109.1 Performed By: #### L 100.0100 ####[facility] [address] [place], [address] Nucleated RBC (Bld) [#/Vol] 0 10*3/uL Normal 0-5 [facility] Comment on above: Order Comment: 109.1 Performed By: #### L 100.0100 ####[facility] [address] [place], [address] Platelet mean volume (Bld) [Entitic vol] 10.8 fL Normal 6.2-12.0 [facility] Comment on above: Order Comment: 109.1 Performed By: #### L 100.0100 ####[facility] [address] [place], [address] Platelets (Bld) [#/Vol] 221 10*3/uL Normal 150-450 [facility] Comment on above: Order Comment: 109.1 Performed By: #### L 100.0100 ####[facility] [address] [place], [address] RBC (Bld) [#/Vol] 4.39 10*6/uL Low 4.6-6.2 [facility] Comment on above: Order Comment: 109.1 Performed By: #### L 100.0100 ####[facility] [address] [place], [address] RDW SD 43.4 fl Normal 35.1-43.9 [facility] Comment on above: Order Comment: 109.1 Performed By: #### L 100.0100 ####[facility] [address] [place], [address] WBC (Bld) [#/Vol] 9.8 10*3/uL Normal 4.4-11.0 [facility] Comment on above: Order Comment: 109.1 Performed By: #### L 100.0100 ####[facility] [address] [place], [address] CBC W/Diff, Automatedon 10-0 7-4 Absolute Lymph 2.06 X10 3/uL Normal 0.83-4.51 [facility] Comment on above: Order Comment: 109.1 Performed By: #### L 100.0100 ####[facility] [address] [place], [address] Absolute Neut 4.8 X10 3/uL Normal 2.0-7.7 [facility] Comment on above: Order Comment: 109.1 Performed By: #### L 100.0100 ####[facility] [address] [place], [address] Basophils/100 WBC (Bld) 0.7 % Normal 0-1 [facility] Comment on above: Order Comment: 109.1 Performed By: #### L 100.0100 ####[facility] [address] [place], [address] Eosinophils/100 WBC (Bld) 0.5 % Normal 0-5 [facility] Comment on above: Order Comment: 109.1 Performed By: #### L 100.0100 ####[facility] [address] [place], [address] Erythrocyte distribution width (RBC) [Ratio] 13.2 % Normal 11.6-14.6 [facility] Comment on above: Order Comment: 109.1 Performed By: #### L 100.0100 ####[facility] [address] [place], [address] Hematocrit (Bld) [Volume fraction] 42.7 % Normal 40-54 [facility] Comment on above: Order Comment: 109.1 Performed By: #### L 100.0100 ####[facility] [address] [place], [address] Hemoglobin (Bld) [Mass/Vol] 13.5 g/dL Normal 13.0-16.5 [facility] Comment on above: Order Comment: 109.1 Performed By: #### L 100.0100 ####[facility] [address] [place], [address] IG% 0.400 Normal 0.0-0.9 [facility] Comment on above: Order Comment: 109.1 Result Comment: IG% - Immature Granulocytes (promyelocytes, myelocytes andmetamyelocytes) > 1% indicates that a LEFT SHIFT is Present. Performed By: #### L 100.0100 ####[facility] [address] [place], [address] Lymphocytes/100 WBC (Bld) 26.9 % Normal 19-41 [facility] Comment on above: Order Comment: 109.1 Performed By: #### L 100.0100 ####[facility] [address] [place], [address] MCH (RBC) [Entitic mass] 29.3 pg Normal 27.0-32.0 [facility] Comment on above: Order Comment: 109.1 Performed By: #### L 100.0100 ####[facility] [address] [place], [address] MCHC (RBC) [Mass/Vol] 31.6 g/dL Low 32-36 [facility] Comment on above: Order Comment: 109.1 Performed By: #### L 100.0100 ####[facility] [address] [place], [address] MCV (RBC) [Entitic vol] 92.8 fL Normal 80-94 [facility] Comment on above: Order Comment: 109.1 Performed By: #### L 100.0100 ####[facility] [address] [place], [address] Monocytes/100 WBC (Bld) 9.3 % Normal 0-10 [facility] Comment on above: Order Comment: 109.1 Performed By: #### L 100.0100 ####[facility] [address] [place], [address] Neutrophils/100 WBC (Bld) 62.2 % Normal 47-70 [facility] Comment on above: Order Comment: 109.1 Performed By: #### L 100.0100 ####[facility] [address] [place], [address] Nucleated RBC (Bld) [#/Vol] 0 10*3/uL Normal 0-5 [facility] Comment on above: Order Comment: 109.1 Performed By: #### L 100.0100 ####[facility] [address] [place], [address] Platelet mean volume (Bld) [Entitic vol] 11.2 fL Normal 6.2-12.0 [facility] Comment on above: Order Comment: 109.1 Performed By: #### L 100.0100 ####[facility] [address] [place], [address] Platelets (Bld) [#/Vol] 192 10*3/uL Normal 150-450 [facility] Comment on above: Order Comment: 109.1 Performed By: #### L 100.0100 ####[facility] [address] [place], [address] RBC (Bld) [#/Vol] 4.60 10*6/uL Normal 4.6-6.2 [facility] Comment on above: Order Comment: 109.1 Performed By: #### L 100.0100 ####[facility] [address] [place], [address] RDW SD 44.9 fl High 35.1-43.9 [facility] Comment on above: Order Comment: 109.1 Performed By: #### L 100.0100 ####[facility] [address] [place], [address] WBC (Bld) [#/Vol] 7.7 10*3/uL Normal 4.4-11.0 [facility] Comment on above: Order Comment: 109.1 Performed By: #### L 100.0100 ####[facility] [address] [place], [address] CBC W/Diff, Automatedon 09-3 0-4 Absolute Lymph 2.12 X10 3/uL Normal 0.83-4.51 [facility] Comment on above: Order Comment: 109.1 Performed By: #### L 100.0100 ####[facility] [address] [place], [address] Absolute Neut 5.2 X10 3/uL Normal 2.0-7.7 [facility] Comment on above: Order Comment: 109.1 Performed By: #### L 100.0100 ####[facility] [address] [place], [address] Basophils/100 WBC (Bld) 0.6 % Normal 0-1 [facility] Comment on above: Order Comment: 109.1 Performed By: #### L 100.0100 ####[facility] [address] [place], [address] Eosinophils/100 WBC (Bld) 0.5 % Normal 0-5 [facility] Comment on above: Order Comment: 109.1 Performed By: #### L 100.0100 ####[facility] [address] [place], [address] Erythrocyte distribution width (RBC) [Ratio] 13.2 % Normal 11.6-14.6 [facility] Comment on above: Order Comment: 109.1 Performed By: #### L 100.0100 ####[facility] [address] [place], [address] Hematocrit (Bld) [Volume fraction] 46.0 % Normal 40-54 [facility] Comment on above: Order Comment: 109.1 Performed By: #### L 100.0100 ####[facility] [address] [place], [address] Hemoglobin (Bld) [Mass/Vol] 14.5 g/dL Normal 13.0-16.5 [facility] Comment on above: Order Comment: 109.1 Performed By: #### L 100.0100 ####[facility] [address] [place], [address] IG% 0.200 Normal 0.0-0.9 [facility] Comment on above: Order Comment: 109.1 Result Comment: IG% - Immature Granulocytes (promyelocytes, myelocytes andmetamyelocytes) > 1% indicates that a LEFT SHIFT is Present. Performed By: #### L 100.0100 ####[facility] [address] [place], [address] Lymphocytes/100 WBC (Bld) 25.9 % Normal 19-41 [facility] Comment on above: Order Comment: 109.1 Performed By: #### L 100.0100 ####[facility] [address] [place], [address] MCH (RBC) [Entitic mass] 29.2 pg Normal 27.0-32.0 [facility] Comment on above: Order Comment: 109.1 Performed By: #### L 100.0100 ####[facility] [address] [place], [address] MCHC (RBC) [Mass/Vol] 31.5 g/dL Low 32-36 [facility] Comment on above: Order Comment: 109.1 Performed By: #### L 100.0100 ####[facility] [address] [place], [address] MCV (RBC) [Entitic vol] 92.7 fL Normal 80-94 [facility] Comment on above: Order Comment: 109.1 Performed By: #### L 100.0100 ####[facility] [address] [place], [address] Monocytes/100 WBC (Bld) 9.0 % Normal 0-10 [facility] Comment on above: Order Comment: 109.1 Performed By: #### L 100.0100 ####[facility] [address] [place], [address] Neutrophils/100 WBC (Bld) 63.8 % Normal 47-70 [facility] Comment on above: Order Comment: 109.1 Performed By: #### L 100.0100 ####[facility] [address] [place], [address] Nucleated RBC (Bld) [#/Vol] 0 10*3/uL Normal 0-5 [facility] Comment on above: Order Comment: 109.1 Performed By: #### L 100.0100 ####[facility] [address] [place], [address] Platelet mean volume (Bld) [Entitic vol] 10.9 fL Normal 6.2-12.0 [facility] Comment on above: Order Comment: 109.1 Performed By: #### L 100.0100 ####[facility] [address] [place], [address] Platelets (Bld) [#/Vol] 192 10*3/uL Normal 150-450 [facility] Comment on above: Order Comment: 109.1 Performed By: #### L 100.0100 ####[facility] [address] [place], [address] RBC (Bld) [#/Vol] 4.96 10*6/uL Normal 4.6-6.2 [facility] Comment on above: Order Comment: 109.1 Performed By: #### L 100.0100 ####[facility] [address] [place], [address] RDW SD 44.6 fl High 35.1-43.9 [facility] Comment on above: Order Comment: 109.1 Performed By: #### L 100.0100 ####[facility] [address] [place], [address] WBC (Bld) [#/Vol] 8.2 10*3/uL Normal 4.4-11.0 [facility] Comment on above: Order Comment: 109.1 Performed By: #### L 100.0100 ####[facility] [address] [place], [address] CBC W/Diff, Automatedon 09-06 03-2023 Absolute Lymph 1.62 X10 3/uL Normal 0.83-4.51 [facility] Comment on above: Order Comment: 109-1 Performed By: #### L 100.0100 ####[facility] [address] [place], [address] Absolute Neut 8.1 X10 3/uL High 2.0-7.7 [facility] Comment on above: Order Comment: 109-1 Performed By: #### L 100.0100 ####[facility] [address] [place], [address] Basophils/100 WBC (Bld) 0.4 % Normal 0-1 [facility] Comment on above: Order Comment: 109-1 Performed By: #### L 100.0100 ####[facility] [address] [place], [address] Eosinophils/100 WBC (Bld) 0.1 % Normal 0-5 [facility] Comment on above: Order Comment: 109-1 Performed By: #### L 100.0100 ####[facility] [address] [place], [address] Erythrocyte distribution width (RBC) [Ratio] 12.9 % Normal 11.6-14.6 [facility] Comment on above: Order Comment: 109-1 Performed By: #### L 100.0100 ####[facility] [address] [place], [address] Hematocrit (Bld) [Volume fraction] 41.9 % Normal 40-54 [facility] Comment on above: Order Comment: 109-1 Performed By: #### L 100.0100 ####[facility] [address] [place], [address] Hemoglobin (Bld) [Mass/Vol] 13.5 g/dL Normal 13.0-16.5 [facility] Comment on above: Order Comment: 109-1 Performed By: #### L 100.0100 ####[facility] [address] [place], [address] IG% 0.400 Normal 0.0-0.9 [facility] Comment on above: Order Comment: 109-1 Result Comment: IG% - Immature Granulocytes (promyelocytes, myelocytes andmetamyelocytes) > 1% indicates that a LEFT SHIFT is Present. Performed By: #### L 100.0100 ####[facility] [address] [place], [address] Lymphocytes/100 WBC (Bld) 15.2 % Low 19-41 [facility] Comment on above: Order Comment: 109-1 Performed By: #### L 100.0100 ####[facility] [address] [place], [address] MCH (RBC) [Entitic mass] 29.3 pg Normal 27.0-32.0 [facility] Comment on above: Order Comment: 109-1 Performed By: #### L 100.0100 ####[facility] [address] [place], [address] MCHC (RBC) [Mass/Vol] 32.2 g/dL Normal 32-36 [facility] Comment on above: Order Comment: 109-1 Performed By: #### L 100.0100 ####[facility] [address] [place], [address] MCV (RBC) [Entitic vol] 90.9 fL Normal 80-94 [facility] Comment on above: Order Comment: 109-1 Performed By: #### L 100.0100 ####[facility] [address] [place], [address] Monocytes/100 WBC (Bld) 7.4 % Normal 0-10 [facility] Comment on above: Order Comment: 109-1 Performed By: #### L 100.0100 ####[facility] [address] [place], [address] Neutrophils/100 WBC (Bld) 76.5 % High 47-70 [facility] Comment on above: Order Comment: 109-1 Performed By: #### L 100.0100 ####[facility] [address] [place], [address] Nucleated RBC (Bld) [#/Vol] 0 10*3/uL Normal 0-5 [facility] Comment on above: Order Comment: 109-1 Performed By: #### L 100.0100 ####[facility] [address] [place], [address] Platelet mean volume (Bld) [Entitic vol] 11.2 fL Normal 6.2-12.0 [facility] Comment on above: Order Comment: 109-1 Performed By: #### L 100.0100 ####[facility] [address] [place], [address] Platelets (Bld) [#/Vol] 220 10*3/uL Normal 150-450 [facility] Comment on above: Order Comment: 109-1 Performed By: #### L 100.0100 ####[facility] [address] [place], [address] RBC (Bld) [#/Vol] 4.61 10*6/uL Normal 4.6-6.2 [facility] Comment on above: Order Comment: 109-1 Performed By: #### L 100.0100 ####[facility] [address] [place], [address] RDW SD 42.1 fl Normal 35.1-43.9 [facility] Comment on above: Order Comment: 109-1 Performed By: #### L 100.0100 ####[facility] [address] [place], [address] WBC (Bld) [#/Vol] 10.6 10*3/uL Normal 4.4-11.0 [facility] Comment on above: Order Comment: 109-1 Performed By: #### L 100.0100 ####[facility] [address] [place], [address] CBC W/Diff, Automatedon - Absolute Lymph 2.15 X10 3/uL Normal 0.83-4.51 [facility] Comment on above: Order Comment: 109-1 Performed By: #### L 100.0100 ####[facility] [address] [place], [address] Absolute Neut 5.4 X10 3/uL Normal 2.0-7.7 [facility] Comment on above: Order Comment: 109-1 Performed By: #### L 100.0100 ####[facility] [address] [place], [address] Basophils/100 WBC (Bld) 0.7 % Normal 0-1 [facility] Comment on above: Order Comment: 109-1 Performed By: #### L 100.0100 ####[facility] [address] [place], [address] Eosinophils/100 WBC (Bld) 0.7 % Normal 0-5 [facility] Comment on above: Order Comment: 109-1 Performed By: #### L 100.0100 ####[facility] [address] [place], [address] Erythrocyte distribution width (RBC) [Ratio] 13.1 % Normal 11.6-14.6 [facility] Comment on above: Order Comment: 109-1 Performed By: #### L 100.0100 ####[facility] [address] [place], [address] Hematocrit (Bld) [Volume fraction] 44.1 % Normal 40-54 [facility] Comment on above: Order Comment: 109-1 Performed By: #### L 100.0100 ####[facility] [address] [place], [address] Hemoglobin (Bld) [Mass/Vol] 14.2 g/dL Normal 13.0-16.5 [facility] Comment on above: Order Comment: 109-1 Performed By: #### L 100.0100 ####[facility] [address] [place], [address] IG% 0.400 Normal 0.0-0.9 [facility] Comment on above: Order Comment: 109-1 Result Comment: IG% - Immature Granulocytes (promyelocytes, myelocytes andmetamyelocytes) > 1% indicates that a LEFT SHIFT is Present. Performed By: #### L 100.0100 ####[facility] [address] [place], [address] Lymphocytes/100 WBC (Bld) 25.7 % Normal 19-41 [facility] Comment on above: Order Comment: 109-1 Performed By: #### L 100.0100 ####[facility] [address] [place], [address] MCH (RBC) [Entitic mass] 29.5 pg Normal 27.0-32.0 [facility] Comment on above: Order Comment: 109-1 Performed By: #### L 100.0100 ####[facility] [address] [place], [address] MCHC (RBC) [Mass/Vol] 32.2 g/dL Normal 32-36 [facility] Comment on above: Order Comment: 109-1 Performed By: #### L 100.0100 ####[facility] [address] [place], [address] MCV (RBC) [Entitic vol] 91.7 fL Normal 80-94 [facility] Comment on above: Order Comment: 109-1 Performed By: #### L 100.0100 ####[facility] [address] [place], [address] Monocytes/100 WBC (Bld) 7.5 % Normal 0-10 [facility] Comment on above: Order Comment: 109-1 Performed By: #### L 100.0100 ####[facility] [address] [place], [address] Neutrophils/100 WBC (Bld) 65.0 % Normal 47-70 [facility] Comment on above: Order Comment: 109-1 Performed By: #### L 100.0100 ####[facility] [address] [place], [address] Nucleated RBC (Bld) [#/Vol] 0 10*3/uL Normal 0-5 [facility] Comment on above: Order Comment: 109-1 Performed By: #### L 100.0100 ####[facility] [address] [place], [address] Platelet mean volume (Bld) [Entitic vol] 11.1 fL Normal 6.2-12.0 [facility] Comment on above: Order Comment: 109-1 Performed By: #### L 100.0100 ####[facility] [address] [place], [address] Platelets (Bld) [#/Vol] 200 10*3/uL Normal 150-450 [facility] Comment on above: Order Comment: 109-1 Performed By: #### L 100.0100 ####[facility] [address] [place], [address] RBC (Bld) [#/Vol] 4.81 10*6/uL Normal 4.6-6.2 [facility] Comment on above: Order Comment: 109-1 Performed By: #### L 100.0100 ####[facility] [address] [place], [address] RDW SD 44.1 fl High 35.1-43.9 [facility] Comment on above: Order Comment: 109-1 Performed By: #### L 100.0100 ####[facility] [address] [place], [address] WBC (Bld) [#/Vol] 8.4 10*3/uL Normal 4.4-11.0 [facility] Comment on above: Order Comment: 109-1 Performed By: #### L 100.0100 ####[facility] [address] [place], [address] CBC W/Diff, Automatedon 09-0 9-2023 Absolute Lymph 3.20 X10 3/uL Normal 0.83-4.51 [facility] Comment on above: Order Comment: 109-1 Performed By: #### L 100.0100 ####[facility] [address] [place], [address] Absolute Neut 5.5 X10 3/uL Normal 2.0-7.7 [facility] Comment on above: Order Comment: 109-1 Performed By: #### L 100.0100 ####[facility] [address] [place], [address] Basophils/100 WBC (Bld) 0.5 % Normal 0-1 [facility] Comment on above: Order Comment: 109-1 Performed By: #### L 100.0100 ####[facility] [address] [place], [address] Eosinophils/100 WBC (Bld) 0.6 % Normal 0-5 [facility] Comment on above: Order Comment: 109-1 Performed By: #### L 100.0100 ####[facility] [address] [place], [address] Erythrocyte distribution width (RBC) [Ratio] 13.2 % Normal 11.6-14.6 [facility] Comment on above: Order Comment: 109-1 Performed By: #### L 100.0100 ####[facility] [address] [place], [address] Hematocrit (Bld) [Volume fraction] 44.3 % Normal 40-54 [facility] Comment on above: Order Comment: 109-1 Performed By: #### L 100.0100 ####[facility] [address] [place], [address] Hemoglobin (Bld) [Mass/Vol] 14.4 g/dL Normal 13.0-16.5 [facility] Comment on above: Order Comment: 109-1 Performed By: #### L 100.0100 ####[facility] [address] [place], [address] IG% 0.400 Normal 0.0-0.9 [facility] Comment on above: Order Comment: 109-1 Result Comment: IG% - Immature Granulocytes (promyelocytes, myelocytes andmetamyelocytes) > 1% indicates that a LEFT SHIFT is Present. Performed By: #### L 100.0100 ####[facility] [address] [place], [address] Lymphocytes/100 WBC (Bld) 31.4 % Normal 19-41 [facility] Comment on above: Order Comment: 109-1 Performed By: #### L 100.0100 ####[facility] [address] [place], [address] MCH (RBC) [Entitic mass] 29.8 pg Normal 27.0-32.0 [facility] Comment on above: Order Comment: 109-1 Performed By: #### L 100.0100 ####[facility] [address] [place], [address] MCHC (RBC) [Mass/Vol] 32.5 g/dL Normal 32-36 [facility] Comment on above: Order Comment: 109-1 Performed By: #### L 100.0100 ####[facility] [address] [place], [address] MCV (RBC) [Entitic vol] 91.7 fL Normal 80-94 [facility] Comment on above: Order Comment: 109-1 Performed By: #### L 100.0100 ####[facility] [address] [place], [address] Monocytes/100 WBC (Bld) 12.8 % High 0-10 [facility] Comment on above: Order Comment: 109-1 Performed By: #### L 100.0100 ####[facility] [address] [place], [address] Neutrophils/100 WBC (Bld) 54.3 % Normal 47-70 [facility] Comment on above: Order Comment: 109-1 Performed By: #### L 100.0100 ####[facility] [address] [place], [address] Nucleated RBC (Bld) [#/Vol] 0 10*3/uL Normal 0-5 [facility] Comment on above: Order Comment: 109-1 Performed By: #### L 100.0100 ####[facility] [address] [place], [address] Platelet mean volume (Bld) [Entitic vol] 11.9 fL Normal 6.2-12.0 [facility] Comment on above: Order Comment: 109-1 Performed By: #### L 100.0100 ####[facility] [address] [place], [address] Platelets (Bld) [#/Vol] 187 10*3/uL Normal 150-450 [facility] Comment on above: Order Comment: 109-1 Performed By: #### L 100.0100 ####[facility] [address] [place], [address] RBC (Bld) [#/Vol] 4.83 10*6/uL Normal 4.6-6.2 [facility] Comment on above: Order Comment: 109-1 Performed By: #### L 100.0100 ####[facility] [address] [place], [address] RDW SD 44.3 fl High 35.1-43.9 [facility] Comment on above: Order Comment: 109-1 Performed By: #### L 100.0100 ####[facility] [address] [place], [address] WBC (Bld) [#/Vol] 10.2 10*3/uL Normal 4.4-11.0 [facility] Comment on above: Order Comment: 109-1 Performed By: #### L 100.0100 ####[facility] [address] [place], [address] CBC W/Diff, Automatedon 09-0 3-2023 Absolute Lymph 2.57 X10 3/uL Normal 0.83-4.51 [facility] Comment on above: Order Comment: 109-1 Performed By: #### L 100.0100, L500.4100 ####[facility] [address] [place], [address] Absolute Neut 5.9 X10 3/uL Normal 2.0-7.7 [facility] Comment on above: Order Comment: 109-1 Performed By: #### L 100.0100, L500.4100 ####[facility] [address] [place], [address] Basophils/100 WBC (Bld) 0.5 % Normal 0-1 [facility] Comment on above: Order Comment: 109-1 Performed By: #### L 100.0100, L500.4100 ####[facility] [address] [place], [address] Eosinophils/100 WBC (Bld) 0.4 % Normal 0-5 [facility] Comment on above: Order Comment: 109-1 Performed By: #### L 100.0100, L500.4100 ####[facility] [address] [place], [address] Erythrocyte distribution width (RBC) [Ratio] 13.1 % Normal 11.6-14.6 [facility] Comment on above: Order Comment: 109-1 Performed By: #### L 100.0100, L500.4100 ####[facility] [address] [place], [address] Hematocrit (Bld) [Volume fraction] 40.6 % Normal 40-54 [facility] Comment on above: Order Comment: 109-1 Performed By: #### L 100.0100, L500.4100 ####[facility] [address] [place], [address] Hemoglobin (Bld) [Mass/Vol] 13.3 g/dL Normal 13.0-16.5 [facility] Comment on above: Order Comment: 109-1 Performed By: #### L 100.0100, L500.4100 ####[facility] [address] [place], [address] IG% 0.300 Normal 0.0-0.9 [facility] Comment on above: Order Comment: 109-1 Result Comment: IG% - Immature Granulocytes (promyelocytes, myelocytes andmetamyelocytes) > 1% indicates that a LEFT SHIFT is Present. Performed By: #### L 100.0100, L500.4100 ####[facility] [address] [place], [address] Lymphocytes/100 WBC (Bld) 27.0 % Normal 19-41 [facility] Comment on above: Order Comment: 109-1 Performed By: #### L 100.0100, L500.4100 ####[facility] [address] [place], [address] MCH (RBC) [Entitic mass] 30.2 pg Normal 27.0-32.0 [facility] Comment on above: Order Comment: 109-1 Performed By: #### L 100.0100, L500.4100 ####[facility] [address] [place], [address] MCHC (RBC) [Mass/Vol] 32.8 g/dL Normal 32-36 [facility] Comment on above: Order Comment: 109-1 Performed By: #### L 100.0100, L500.4100 ####[facility] [address] [place], [address] MCV (RBC) [Entitic vol] 92.3 fL Normal 80-94 [facility] Comment on above: Order Comment: 109-1 Performed By: #### L 100.0100, L500.4100 ####[facility] [address] [place], [address] Monocytes/100 WBC (Bld) 9.7 % Normal 0-10 [facility] Comment on above: Order Comment: 109-1 Performed By: #### L 100.0100, L500.4100 ####[facility] [address] [place], [address] Neutrophils/100 WBC (Bld) 62.1 % Normal 47-70 [facility] Comment on above: Order Comment: 109-1 Performed By: #### L 100.0100, L500.4100 ####[facility] [address] [place], [address] Nucleated RBC (Bld) [#/Vol] 0 10*3/uL Normal 0-5 [facility] Comment on above: Order Comment: 109-1 Performed By: #### L 100.0100, L500.4100 ####[facility] [address] [place], [address] Platelet mean volume (Bld) [Entitic vol] 12.1 fL High 6.2-12.0 [facility] Comment on above: Order Comment: 109-1 Performed By: #### L 100.0100, L500.4100 ####[facility] [address] [place], [address] Platelets (Bld) [#/Vol] 172 10*3/uL Normal 150-450 [facility] Comment on above: Order Comment: 109-1 Performed By: #### L 100.0100, L500.4100 ####[facility] [address] [place], [address] RBC (Bld) [#/Vol] 4.40 10*6/uL Low 4.6-6.2 [facility] Comment on above: Order Comment: 109-1 Performed By: #### L 100.0100, L500.4100 ####[facility] [address] [place], [address] RDW SD 44.0 fl High 35.1-43.9 [facility] Comment on above: Order Comment: 109-1 Performed By: #### L 100.0100, L500.4100 ####[facility] [address] [place], [address] WBC (Bld) [#/Vol] 9.5 10*3/uL Normal 4.4-11.0 [facility] Comment on above: Order Comment: 109-1 Performed By: #### L 100.0100, L500.4100 ####[facility] [address] [place], [address] Lipid Profileon 01-02-2024 Cholesterol [Mass/Vol] 115 mg/dL Normal 200 [facility] Comment on above: Order Comment: 109-1 Result Comment: <200 mg/dL Desirable 200-240 mg/dL Borderline >240 mg/dL High Risk Performed By: #### L 100.0100, L500.4100 ####[facility] [address] [place], [address] Cholesterol in HDL [Mass/Vol] 24 mg/dL Low [facility] Comment on above: Order Comment: 109-1 Result Comment: The drugs N-Acetylcysteine and Metamizole may falselydepress this assay. Reference Range HDL <40 mg/dL Low HDL Cholesterol HDL >or= 60 mg/dL High HDL Cholesterol Performed By: #### L 100.0100, L500.4100 ####[facility] [address] [place], [address] Cholesterol in LDL [Mass/Vol] 37 mg/dL Normal 0-130 [facility] Comment on above: Order Comment: 109-1 Performed By: #### L 100.0100, L500.4100 ####[facility] [address] [place], [address] Cholesterol in VLDL [Mass/Vol] 54 mg/dL High 5-40 [facility] Comment on above: Order Comment: 109-1 Performed By: #### L 100.0100, L500.4100 ####[facility] [address] [place], [address] Triglyceride [Mass/Vol] 271 mg/dL High [facility] Comment on above: Order Comment: 109-1 Result Comment: The drugs N-Acetylcysteine and Metamizole may falselydepress this assay.Serum Triglycerides Reference Interval Normal <150 mg/dL Borderline high 150 - 199 mg/dL High 200 - 499 mg/dL Very High > or = 500 mg/dL Performed By: #### L 100.0100, L500.4100 ####[facility] [address] [place], [address] CBC W/Diff, Automatedon 08-2 Absolute Lymph 2.51 X10 3/uL Normal 0.83-4.51 [facility] Comment on above: Order Comment: 109.1 Performed By: #### L 100.0100 ####[facility] [address] [place], [address] Absolute Neut 4.1 X10 3/uL Normal 2.0-7.7 [facility] Comment on above: Order Comment: 109.1 Performed By: #### L 100.0100 ####[facility] [address] [place], [address] Basophils/100 WBC (Bld) 0.5 % Normal 0-1 [facility] Comment on above: Order Comment: 109.1 Performed By: #### L 100.0100 ####[facility] [address] [place], [address] Eosinophils/100 WBC (Bld) 0.8 % Normal 0-5 [facility] Comment on above: Order Comment: 109.1 Performed By: #### L 100.0100 ####[facility] [address] [place], [address] Erythrocyte distribution width (RBC) [Ratio] 13.1 % Normal 11.6-14.6 [facility] Comment on above: Order Comment: 109.1 Performed By: #### L 100.0100 ####[facility] [address] [place], [address] Hematocrit (Bld) [Volume fraction] 40.5 % Normal 40-54 [facility] Comment on above: Order Comment: 109.1 Performed By: #### L 100.0100 ####[facility] [address] [place], [address] Hemoglobin (Bld) [Mass/Vol] 12.9 g/dL Low 13.0-16.5 [facility] Comment on above: Order Comment: 109.1 Performed By: #### L 100.0100 ####[facility] [address] [place], [address] IG% 0.400 Normal 0.0-0.9 [facility] Comment on above: Order Comment: 109.1 Result Comment: IG% - Immature Granulocytes (promyelocytes, myelocytes andmetamyelocytes) > 1% indicates that a LEFT SHIFT is Present. Performed By: #### L 100.0100 ####[facility] [address] [place], [address] Lymphocytes/100 WBC (Bld) 33.5 % Normal 19-41 [facility] Comment on above: Order Comment: 109.1 Performed By: #### L 100.0100 ####[facility] [address] [place], [address] MCH (RBC) [Entitic mass] 29.3 pg Normal 27.0-32.0 [facility] Comment on above: Order Comment: 109.1 Performed By: #### L 100.0100 ####[facility] [address] [place], [address] MCHC (RBC) [Mass/Vol] 31.9 g/dL Low 32-36 [facility] Comment on above: Order Comment: 109.1 Performed By: #### L 100.0100 ####[facility] [address] [place], [address] MCV (RBC) [Entitic vol] 92.0 fL Normal 80-94 [facility] Comment on above: Order Comment: 109.1 Performed By: #### L 100.0100 ####[facility] [address] [place], [address] Monocytes/100 WBC (Bld) 10.7 % High 0-10 [facility] Comment on above: Order Comment: 109.1 Performed By: #### L 100.0100 ####[facility] [address] [place], [address] Neutrophils/100 WBC (Bld) 54.1 % Normal 47-70 [facility] Comment on above: Order Comment: 109.1 Performed By: #### L 100.0100 ####[facility] [address] [place], [address] Nucleated RBC (Bld) [#/Vol] 0 10*3/uL Normal 0-5 [facility] Comment on above: Order Comment: 109.1 Performed By: #### L 100.0100 ####[facility] [address] [place], [address] Platelet mean volume (Bld) [Entitic vol] 10.8 fL Normal 6.2-12.0 [facility] Comment on above: Order Comment: 109.1 Performed By: #### L 100.0100 ####[facility] [address] [place], [address] Platelets (Bld) [#/Vol] 193 10*3/uL Normal 150-450 [facility] Comment on above: Order Comment: 109.1 Performed By: #### L 100.0100 ####[facility] [address] [place], [address] RBC (Bld) [#/Vol] 4.40 10*6/uL Low 4.6-6.2 [facility] Comment on above: Order Comment: 109.1 Performed By: #### L 100.0100 ####[facility] [address] [place], [address] RDW SD 44.0 fl High 35.1-43.9 [facility] Comment on above: Order Comment: 109.1 Performed By: #### L 100.0100 ####[facility] [address] [place], [address] WBC (Bld) [#/Vol] 7.5 10*3/uL Normal 4.4-11.0 [facility] Comment on above: Order Comment: 109.1 Performed By: #### L 100.0100 ####[facility] [address] [place], [address] CBC W/Diff, Automatedon 08- Absolute Lymph 2.38 X10 3/uL Normal 0.83-4.51 [facility] Comment on above: Order Comment: 109-1 Performed By: #### L 100.0100 ####[facility] [address] [place], [address] Absolute Neut 5.2 X10 3/uL Normal 2.0-7.7 [facility] Comment on above: Order Comment: 109-1 Performed By: #### L 100.0100 ####[facility] [address] [place], [address] Basophils/100 WBC (Bld) 0.4 % Normal 0-1 [facility] Comment on above: Order Comment: 109-1 Performed By: #### L 100.0100 ####[facility] [address] [place], [address] Eosinophils/100 WBC (Bld) 0.7 % Normal 0-5 [facility] Comment on above: Order Comment: 109-1 Performed By: #### L 100.0100 ####[facility] [address] [place], [address] Erythrocyte distribution width (RBC) [Ratio] 12.8 % Normal 11.6-14.6 [facility] Comment on above: Order Comment: 109-1 Performed By: #### L 100.0100 ####[facility] [address] [place], [address] Hematocrit (Bld) [Volume fraction] 48.0 % Normal 40-54 [facility] Comment on above: Order Comment: 109-1 Performed By: #### L 100.0100 ####[facility] [address] [place], [address] Hemoglobin (Bld) [Mass/Vol] 15.3 g/dL Normal 13.0-16.5 [facility] Comment on above: Order Comment: 109-1 Performed By: #### L 100.0100 ####[facility] [address] [place], [address] IG% 0.200 Normal 0.0-0.9 [facility] Comment on above: Order Comment: 109-1 Result Comment: IG% - Immature Granulocytes (promyelocytes, myelocytes andmetamyelocytes) > 1% indicates that a LEFT SHIFT is Present. Performed By: #### L 100.0100 ####[facility] [address] [place], [address] Lymphocytes/100 WBC (Bld) 28.5 % Normal 19-41 [facility] Comment on above: Order Comment: 109-1 Performed By: #### L 100.0100 ####[facility] [address] [place], [address] MCH (RBC) [Entitic mass] 29.4 pg Normal 27.0-32.0 [facility] Comment on above: Order Comment: 109-1 Performed By: #### L 100.0100 ####[facility] [address] [place], [address] MCHC (RBC) [Mass/Vol] 31.9 g/dL Low 32-36 [facility] Comment on above: Order Comment: 109-1 Performed By: #### L 100.0100 ####[facility] [address] [place], [address] MCV (RBC) [Entitic vol] 92.3 fL Normal 80-94 [facility] Comment on above: Order Comment: 109-1 Performed By: #### L 100.0100 ####[facility] [address] [place], [address] Monocytes/100 WBC (Bld) 8.4 % Normal 0-10 [facility] Comment on above: Order Comment: 109-1 Performed By: #### L 100.0100 ####[facility] [address] [place], [address] Neutrophils/100 WBC (Bld) 61.8 % Normal 47-70 [facility] Comment on above: Order Comment: 109-1 Performed By: #### L 100.0100 ####[facility] [address] [place], [address] Nucleated RBC (Bld) [#/Vol] 0 10*3/uL Normal 0-5 [facility] Comment on above: Order Comment: 109-1 Performed By: #### L 100.0100 ####[facility] [address] [place], [address] Platelet mean volume (Bld) [Entitic vol] 11.6 fL Normal 6.2-12.0 [facility] Comment on above: Order Comment: 109-1 Performed By: #### L 100.0100 ####[facility] [address] [place], [address] Platelets (Bld) [#/Vol] 183 10*3/uL Normal 150-450 [facility] Comment on above: Order Comment: 109-1 Performed By: #### L 100.0100 ####[facility] [address] [place], [address] RBC (Bld) [#/Vol] 5.20 10*6/uL Normal 4.6-6.2 [facility] Comment on above: Order Comment: 109-1 Performed By: #### L 100.0100 ####[facility] [address] [place], [address] RDW SD 43.5 fl Normal 35.1-43.9 [facility] Comment on above: Order Comment: 109-1 Performed By: #### L 100.0100 ####[facility] [address] [place], [address] WBC (Bld) [#/Vol] 8.3 10*3/uL Normal 4.4-11.0 [facility] Comment on above: Order Comment: 109-1 Performed By: #### L 100.0100 ####[facility] [address] [place], [address] CBC W/Diff, Automatedon 08- Absolute Lymph 2.03 X10 3/uL Normal 0.83-4.51 [facility] Comment on above: Order Comment: 109-1 Performed By: #### L 100.0100 ####[facility] [address] [place], [address] Absolute Neut 5.7 X10 3/uL Normal 2.0-7.7 [facility] Comment on above: Order Comment: 109-1 Performed By: #### L 100.0100 ####[facility] [address] [place], [address] Basophils/100 WBC (Bld) 0.6 % Normal 0-1 [facility] Comment on above: Order Comment: 109-1 Performed By: #### L 100.0100 ####[facility] [address] [place], [address] Eosinophils/100 WBC (Bld) 0.6 % Normal 0-5 [facility] Comment on above: Order Comment: 109-1 Performed By: #### L 100.0100 ####[facility] [address] [place], [address] Erythrocyte distribution width (RBC) [Ratio] 12.8 % Normal 11.6-14.6 [facility] Comment on above: Order Comment: 109-1 Performed By: #### L 100.0100 ####[facility] [address] [place], [address] Hematocrit (Bld) [Volume fraction] 39.9 % Low 40-54 [facility] Comment on above: Order Comment: 109-1 Performed By: #### L 100.0100 ####[facility] [address] [place], [address] Hemoglobin (Bld) [Mass/Vol] 12.8 g/dL Low 13.0-16.5 [facility] Comment on above: Order Comment: 109-1 Performed By: #### L 100.0100 ####[facility] [address] [place], [address] IG% 0.400 Normal 0.0-0.9 [facility] Comment on above: Order Comment: 109-1 Result Comment: IG% - Immature Granulocytes (promyelocytes, myelocytes andmetamyelocytes) > 1% indicates that a LEFT SHIFT is Present. Performed By: #### L 100.0100 ####[facility] [address] [place], [address] Lymphocytes/100 WBC (Bld) 23.9 % Normal 19-41 [facility] Comment on above: Order Comment: 109-1 Performed By: #### L 100.0100 ####[facility] [address] [place], [address] MCH (RBC) [Entitic mass] 29.4 pg Normal 27.0-32.0 [facility] Comment on above: Order Comment: 109-1 Performed By: #### L 100.0100 ####[facility] [address] [place], [address] MCHC (RBC) [Mass/Vol] 32.1 g/dL Normal 32-36 [facility] Comment on above: Order Comment: 109-1 Performed By: #### L 100.0100 ####[facility] [address] [place], [address] MCV (RBC) [Entitic vol] 91.7 fL Normal 80-94 [facility] Comment on above: Order Comment: 109-1 Performed By: #### L 100.0100 ####[facility] [address] [place], [address] Monocytes/100 WBC (Bld) 7.8 % Normal 0-10 [facility] Comment on above: Order Comment: 109-1 Performed By: #### L 100.0100 ####[facility] [address] [place], [address] Neutrophils/100 WBC (Bld) 66.7 % Normal 47-70 [facility] Comment on above: Order Comment: 109-1 Performed By: #### L 100.0100 ####[facility] [address] [place], [address] Nucleated RBC (Bld) [#/Vol] 0 10*3/uL Normal 0-5 [facility] Comment on above: Order Comment: 109-1 Performed By: #### L 100.0100 ####[facility] [address] [place], [address] Platelet mean volume (Bld) [Entitic vol] 11.1 fL Normal 6.2-12.0 [facility] Comment on above: Order Comment: 109-1 Performed By: #### L 100.0100 ####[facility] [address] [place], [address] Platelets (Bld) [#/Vol] 204 10*3/uL Normal 150-450 [facility] Comment on above: Order Comment: 109-1 Performed By: #### L 100.0100 ####[facility] [address] [place], [address] RBC (Bld) [#/Vol] 4.35 10*6/uL Low 4.6-6.2 [facility] Comment on above: Order Comment: 109-1 Performed By: #### L 100.0100 ####[facility] [address] [place], [address] RDW SD 43.2 fl Normal 35.1-43.9 [facility] Comment on above: Order Comment: 109-1 Performed By: #### L 100.0100 ####[facility] [address] [place], [address] WBC (Bld) [#/Vol] 8.5 10*3/uL Normal 4.4-11.0 [facility] Comment on above: Order Comment: 109-1 Performed By: #### L 100.0100 ####[facility] [address] [place], [address] CBC-Complete Blood Cnt No Di ffon 12-04-2023 Erythrocyte distribution width (RBC) [Ratio] 12.8 % Normal 11.6-14.6 [facility] Comment on above: Order Comment: 109.1 Performed By: #### L 100.0500 ####[facility] [address] [place], [address] Hematocrit (Bld) [Volume fraction] 41.0 % Normal 40-54 [facility] Comment on above: Order Comment: 109.1 Performed By: #### L 100.0500 ####[facility] [address] [place], [address] Hemoglobin (Bld) [Mass/Vol] 13.4 g/dL Normal 13.0-16.5 [facility] Comment on above: Order Comment: 109.1 Performed By: #### L 100.0500 ####[facility] [address] [place], [address] MCH (RBC) [Entitic mass] 30.0 pg Normal 27.0-32.0 [facility] Comment on above: Order Comment: 109.1 Performed By: #### L 100.0500 ####[facility] [address] [place], [address] MCHC (RBC) [Mass/Vol] 32.7 g/dL Normal 32-36 [facility] Comment on above: Order Comment: 109.1 Performed By: #### L 100.0500 ####[facility] [address] [place], [address] MCV (RBC) [Entitic vol] 91.7 fL Normal 80-94 [facility] Comment on above: Order Comment: 109.1 Performed By: #### L 100.0500 ####[facility] [address] [place], [address] Platelet mean volume (Bld) [Entitic vol] 10.8 fL Normal 6.2-12.0 [facility] Comment on above: Order Comment: 109.1 Performed By: #### L 100.0500 ####[facility] [address] [place], [address] Platelets (Bld) [#/Vol] 219 10*3/uL Normal 150-450 [facility] Comment on above: Order Comment: 109.1 Performed By: #### L 100.0500 ####[facility] [address] [place], [address] RBC (Bld) [#/Vol] 4.47 10*6/uL Low 4.6-6.2 [facility] Comment on above: Order Comment: 109.1 Performed By: #### L 100.0500 ####[facility] [address] [place], [address] RDW SD 43.0 fl Normal 35.1-43.9 [facility] Comment on above: Order Comment: 109.1 Performed By: #### L 100.0500 ####[facility] [address] [place], [address] WBC (Bld) [#/Vol] 7.6 10*3/uL Normal 4.4-11.0 [facility] Comment on above: Order Comment: 109.1 Performed By: #### L 100.0500 ####[facility] [address] [place], [address] CBC W/Diff, Automatedon 07-2 Absolute Lymph 1.72 X10 3/uL Normal 0.83-4.51 [facility] Comment on above: Order Comment: 109.1 Performed By: #### L 100.0100 ####[facility] [address] [place], [address] Absolute Neut 4.3 X10 3/uL Normal 2.0-7.7 [facility] Comment on above: Order Comment: 109.1 Performed By: #### L 100.0100 ####[facility] [address] [place], [address] Basophils/100 WBC (Bld) 0.4 % Normal 0-1 [facility] Comment on above: Order Comment: 109.1 Performed By: #### L 100.0100 ####[facility] [address] [place], [address] Eosinophils/100 WBC (Bld) 0.6 % Normal 0-5 [facility] Comment on above: Order Comment: 109.1 Performed By: #### L 100.0100 ####[facility] [address] [place], [address] Erythrocyte distribution width (RBC) [Ratio] 13.0 % Normal 11.6-14.6 [facility] Comment on above: Order Comment: 109.1 Performed By: #### L 100.0100 ####[facility] [address] [place], [address] Hematocrit (Bld) [Volume fraction] 40.8 % Normal 40-54 [facility] Comment on above: Order Comment: 109.1 Performed By: #### L 100.0100 ####[facility] [address] [place], [address] Hemoglobin (Bld) [Mass/Vol] 13.2 g/dL Normal 13.0-16.5 [facility] Comment on above: Order Comment: 109.1 Performed By: #### L 100.0100 ####[facility] [address] [place], [address] IG% 0.300 Normal 0.0-0.9 [facility] Comment on above: Order Comment: 109.1 Result Comment: IG% - Immature Granulocytes (promyelocytes, myelocytes andmetamyelocytes) > 1% indicates that a LEFT SHIFT is Present. Performed By: #### L 100.0100 ####[facility] [address] [place], [address] Lymphocytes/100 WBC (Bld) 25.8 % Normal 19-41 [facility] Comment on above: Order Comment: 109.1 Performed By: #### L 100.0100 ####[facility] [address] [place], [address] MCH (RBC) [Entitic mass] 29.7 pg Normal 27.0-32.0 [facility] Comment on above: Order Comment: 109.1 Performed By: #### L 100.0100 ####[facility] [address] [place], [address] MCHC (RBC) [Mass/Vol] 32.4 g/dL Normal 32-36 [facility] Comment on above: Order Comment: 109.1 Performed By: #### L 100.0100 ####[facility] [address] [place], [address] MCV (RBC) [Entitic vol] 91.7 fL Normal 80-94 [facility] Comment on above: Order Comment: 109.1 Performed By: #### L 100.0100 ####[facility] [address] [place], [address] Monocytes/100 WBC (Bld) 9.0 % Normal 0-10 [facility] Comment on above: Order Comment: 109.1 Performed By: #### L 100.0100 ####[facility] [address] [place], [address] Neutrophils/100 WBC (Bld) 63.9 % Normal 47-70 [facility] Comment on above: Order Comment: 109.1 Performed By: #### L 100.0100 ####[facility] [address] [place], [address] Nucleated RBC (Bld) [#/Vol] 0 10*3/uL Normal 0-5 [facility] Comment on above: Order Comment: 109.1 Performed By: #### L 100.0100 ####[facility] [address] [place], [address] Platelet mean volume (Bld) [Entitic vol] 11.0 fL Normal 6.2-12.0 [facility] Comment on above: Order Comment: 109.1 Performed By: #### L 100.0100 ####[facility] [address] [place], [address] Platelets (Bld) [#/Vol] 196 10*3/uL Normal 150-450 [facility] Comment on above: Order Comment: 109.1 Performed By: #### L 100.0100 ####[facility] [address] [place], [address] RBC (Bld) [#/Vol] 4.45 10*6/uL Low 4.6-6.2 [facility] Comment on above: Order Comment: 109.1 Performed By: #### L 100.0100 ####[facility] [address] [place], [address] RDW SD 43.5 fl Normal 35.1-43.9 [facility] Comment on above: Order Comment: 109.1 Performed By: #### L 100.0100 ####[facility] [address] [place], [address] WBC (Bld) [#/Vol] 6.7 10*3/uL Normal 4.4-11.0 [facility] Comment on above: Order Comment: 109.1 Performed By: #### L 100.0100 ####[facility] [address] [place], [address] Progress Noteon 11-22-2023 Progress Note Speech-Language Pathology SPEECH LANGUAGE PATHOLOGY [facility] ED's Modified Barium Swallow Study Patient [...] despite effort. 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 Frequency: Per treating SET OFF PRESS OPERATOR Barriers: large osteophytes, bridging with anterior [...] Prior MBSS?: No, unable to locate in [facility] Current Diet: Puree diet with ?liquid (no information from [employer]) Textures tested: - thin liquid, (cup edge) - mildly thick liquid, (cup edge) - puree, (teaspoon) Patient position: lateral Past Medical History: Past Medical History: Diagnosis Date TREVER (acute kidney injury) (CMS/HCC) ([facility]) Alcohol abuse 07/08/2018 Anxiety C1 spinal cord injury ([facility]/HCC) ([facility]) Depression Fall 06/2018 Schizophrenia ([facility]) Past Surgical History: Past Surgical History: Procedure Laterality Date CERVICAL FUSION 07/09/2014 C2-6 cervical fusion GASTROSTOMY TUBE PLACEMENT 07/13/2018 TRACHEOSTOMY 07/13/2018 Admission Diagnosis: Patient Active Problem List Diagnosis Date Noted Respiratory syncytial virus (RSV) 03/22/2021 Hypoxia 03/19/2021 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) ([facility]) 08/16/2018 Chronic latent schizophrenia ([facility]) 08/15/2018 Prolonged Q-T interval on ECG 08/15/2018 Abdominal wall abscess 08/15/2018 Central cord syndrome ([facility]/HCC) ([facility]) 08/15/2018 Respiratory failure after trauma ([facility]) 08/15/2018 Pressure ulcer of sacral region, stage 2 ([facility]) 08/09/2018 Urinary retention 07/28/2018 Acute respiratory failure with hypoxia ([facility]) 07/26/2018 Mild bibasilar atelectasis 07/26/2018 Hospital-acquired pneumonia 07/26/2018 Bilateral pleural effusion 07/26/2018 Ileus ([facility]/HCC) ([facility]) 07/23/2018 TREVER (acute kidney injury) ([facility]) 07/23/2018 Hypokalemia 07/21/2018 Vertebral artery occlusion, bilateral 07/11/2018 Vitamin D insufficiency 07/10/2018 Alcohol abuse 07/08/2018 Closed wedge compression fracture of first thoracic vertebra ([facility]) 07/08/2018 Traumatic nondisp spondylolisthesis of C3 vertebra with closed fx, initial encounter ([facility]) 07/08/2018 Closed fracture dislocation of cervical spine ([facility]) 07/08/2018 Pain: Pt denies any current pain. Reason for current admission: Pt with h/o of PEG and trach from 2019. Pt is currently decannulated. 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 Noted very large connective [...] posterior spill (more content not included)... Normal [facility] RF videography Hypopharynx a nd Esophagus Views for swallowing function W speech and W barium contrast Rosalino 11-22-2023 Abnormal findings as described above. Please refer to the speech pathologist 's report for additional details and recommendations. Report Dictated on Electronically Signed By: Nir Cancino MD Electronically Signed Date/Time: 11/22/2023 1:57 PM EDT [facility] [employer] [facility] 1955 [id number] Exam Date/Time: 11/22/2023 12:53 Procedure: FL MODIFIED [...] not visualized in this exam for evaluation. [facility] Nir Cancino MD - 11/22/2023 Patient Name: KATHYA HOOPER : 1955 [facility]#: [id number] Exam Date/Time: 11/22/2023 12:53 Procedure: FL MODIFIED [...] Electronically Signed Date/Time: 11/22/2023 1:57 PM EDT [facility] Radiology Study observation (narrative) [facility] RF videography Hypopharynx a nd Esophagus Views for swallowing function W speech and W barium contrast POOrdered By: Nir Cancino on 11-22-2023 [facility] Work Phone: CBC W/Diff, Automatedon 10-30 Absolute Lymph 2.24 X10 3/uL Normal 0.83-4.51 [facility] Comment on above: Order Comment: 109-1 Performed By: #### L 100.0100 ####[facility] [address] [place], [address] Absolute Neut 5.7 X10 3/uL Normal 2.0-7.7 [facility] Comment on above: Order Comment: 109-1 Performed By: #### L 100.0100 ####[facility] [address] [place], [address] Basophils/100 WBC (Bld) 0.6 % Normal 0-1 [facility] Comment on above: Order Comment: 109-1 Performed By: #### L 100.0100 ####[facility] [address] [place], [address] Eosinophils/100 WBC (Bld) 0.5 % Normal 0-5 [facility] Comment on above: Order Comment: 109-1 Performed By: #### L 100.0100 ####[facility] [address] [place], [address] Erythrocyte distribution width (RBC) [Ratio] 13.1 % Normal 11.6-14.6 [facility] Comment on above: Order Comment: 109-1 Performed By: #### L 100.0100 ####[facility] [address] [place], [address] Hematocrit (Bld) [Volume fraction] 41.5 % Normal 40-54 [facility] Comment on above: Order Comment: 109-1 Performed By: #### L 100.0100 ####[facility] [address] [place], [address] Hemoglobin (Bld) [Mass/Vol] 13.6 g/dL Normal 13.0-16.5 [facility] Comment on above: Order Comment: 109-1 Performed By: #### L 100.0100 ####[facility] [address] [place], [address] IG% 0.200 Normal 0.0-0.9 [facility] Comment on above: Order Comment: 109-1 Result Comment: IG% - Immature Granulocytes (promyelocytes, myelocytes andmetamyelocytes) > 1% indicates that a LEFT SHIFT is Present. Performed By: #### L 100.0100 ####[facility] [address] [place], [address] Lymphocytes/100 WBC (Bld) 25.5 % Normal 19-41 [facility] Comment on above: Order Comment: 109-1 Performed By: #### L 100.0100 ####[facility] [address] [place], [address] MCH (RBC) [Entitic mass] 30.0 pg Normal 27.0-32.0 [facility] Comment on above: Order Comment: 109-1 Performed By: #### L 100.0100 ####[facility] [address] [place], [address] MCHC (RBC) [Mass/Vol] 32.8 g/dL Normal 32-36 [facility] Comment on above: Order Comment: 109-1 Performed By: #### L 100.0100 ####[facility] [address] [place], [address] MCV (RBC) [Entitic vol] 91.4 fL Normal 80-94 [facility] Comment on above: Order Comment: 109-1 Performed By: #### L 100.0100 ####[facility] [address] [place], [address] Monocytes/100 WBC (Bld) 8.0 % Normal 0-10 [facility] Comment on above: Order Comment: 109-1 Performed By: #### L 100.0100 ####[facility] [address] [place], [address] Neutrophils/100 WBC (Bld) 65.2 % Normal 47-70 [facility] Comment on above: Order Comment: 109-1 Performed By: #### L 100.0100 ####[facility] [address] [place], [address] Nucleated RBC (Bld) [#/Vol] 0 10*3/uL Normal 0-5 [facility] Comment on above: Order Comment: 109-1 Performed By: #### L 100.0100 ####[facility] [address] [place], [address] Platelet mean volume (Bld) [Entitic vol] 11.5 fL Normal 6.2-12.0 [facility] Comment on above: Order Comment: 109-1 Performed By: #### L 100.0100 ####[facility] [address] [place], [address] Platelets (Bld) [#/Vol] 190 10*3/uL Normal 150-450 [facility] Comment on above: Order Comment: 109-1 Performed By: #### L 100.0100 ####[facility] [address] [place], [address] RBC (Bld) [#/Vol] 4.54 10*6/uL Low 4.6-6.2 [facility] Comment on above: Order Comment: 109-1 Performed By: #### L 100.0100 ####[facility] [address] [place], [address] RDW SD 43.3 fl Normal 35.1-43.9 [facility] Comment on above: Order Comment: 109-1 Performed By: #### L 100.0100 ####[facility] [address] [place], [address] WBC (Bld) [#/Vol] 8.8 10*3/uL Normal 4.4-11.0 [facility] Comment on above: Order Comment: 109-1 Performed By: #### L 100.0100 ####[facility] [address] [place], [address] Urine Cultureon 11-15-2023 URC Culture exhibits no growth. Normal [facility] Comment on above: Performed By: #### M 100.2200, L400.0001 ####[facility] [address] [place], [address] Urinalysis, Completeon 11-13 RBC 0-5 SEEN Normal 0-5 [facility] Comment on above: Order Comment: CLEAN CATCH Performed By: #### M 100.2200, L400.0001 ####[facility] [address] [place], [address] WBC 0-5 SEEN Normal 0-5 [facility] Comment on above: Order Comment: CLEAN CATCH Performed By: #### M 100.2200, L400.0001 ####[facility] [address] [place], [address] BACTERIA 0 SEEN Normal None Seen [facility] Comment on above: Order Comment: CLEAN CATCH Performed By: #### M 100.2200, L400.0001 ####[facility] [address] [place], [address] EPI,SQUAMOUS 0 SEEN Normal 0-5 [facility] Comment on above: Order Comment: CLEAN CATCH Performed By: #### M 100.2200, L400.0001 ####[facility] [address] [place], [address] Mucus Ql (Urine sed) 0 SEEN Normal [facility] Comment on above: Order Comment: CLEAN CATCH Performed By: #### M 100.2200, L400.0001 ####[facility] [address] [place], [address] CBC W/Diff, Automatedon 07- Absolute Lymph 2.72 X10 3/uL Normal 0.83-4.51 [facility] Comment on above: Order Comment: 109-1 Performed By: #### L 100.0100 ####[facility] [address] [place], [address] Absolute Neut 8.2 X10 3/uL High 2.0-7.7 [facility] Comment on above: Order Comment: 109-1 Performed By: #### L 100.0100 ####[facility] [address] [place], [address] Basophils/100 WBC (Bld) 0.5 % Normal 0-1 [facility] Comment on above: Order Comment: 109-1 Performed By: #### L 100.0100 ####[facility] [address] [place], [address] Eosinophils/100 WBC (Bld) 0.3 % Normal 0-5 [facility] Comment on above: Order Comment: 109-1 Performed By: #### L 100.0100 ####[facility] [address] [place], [address] Erythrocyte distribution width (RBC) [Ratio] 12.9 % Normal 11.6-14.6 [facility] Comment on above: Order Comment: 109-1 Performed By: #### L 100.0100 ####[facility] [address] [place], [address] Hematocrit (Bld) [Volume fraction] 43.6 % Normal 40-54 [facility] Comment on above: Order Comment: 109-1 Performed By: #### L 100.0100 ####[facility] [address] [place], [address] Hemoglobin (Bld) [Mass/Vol] 14.0 g/dL Normal 13.0-16.5 [facility] Comment on above: Order Comment: 109-1 Performed By: #### L 100.0100 ####[facility] [address] [place], [address] IG% 0.400 Normal 0.0-0.9 [facility] Comment on above: Order Comment: 109-1 Result Comment: IG% - Immature Granulocytes (promyelocytes, myelocytes andmetamyelocytes) > 1% indicates that a LEFT SHIFT is Present. Performed By: #### L 100.0100 ####[facility] [address] [place], [address] Lymphocytes/100 WBC (Bld) 23.2 % Normal 19-41 [facility] Comment on above: Order Comment: 109-1 Performed By: #### L 100.0100 ####[facility] [address] [place], [address] MCH (RBC) [Entitic mass] 29.9 pg Normal 27.0-32.0 [facility] Comment on above: Order Comment: 109-1 Performed By: #### L 100.0100 ####[facility] [address] [place], [address] MCHC (RBC) [Mass/Vol] 32.1 g/dL Normal 32-36 [facility] Comment on above: Order Comment: 109-1 Performed By: #### L 100.0100 ####[facility] [address] [place], [address] MCV (RBC) [Entitic vol] 93.0 fL Normal 80-94 [facility] Comment on above: Order Comment: 109-1 Performed By: #### L 100.0100 ####[facility] [address] [place], [address] Monocytes/100 WBC (Bld) 5.8 % Normal 0-10 [facility] Comment on above: Order Comment: 109-1 Performed By: #### L 100.0100 ####[facility] [address] [place], [address] Neutrophils/100 WBC (Bld) 69.8 % Normal 47-70 [facility] Comment on above: Order Comment: 109-1 Performed By: #### L 100.0100 ####[facility] [address] [place], [address] Nucleated RBC (Bld) [#/Vol] 0 10*3/uL Normal 0-5 [facility] Comment on above: Order Comment: 109-1 Performed By: #### L 100.0100 ####[facility] [address] [place], [address] Platelet mean volume (Bld) [Entitic vol] 11.2 fL Normal 6.2-12.0 [facility] Comment on above: Order Comment: 109-1 Performed By: #### L 100.0100 ####[facility] [address] [place], [address] Platelets (Bld) [#/Vol] 207 10*3/uL Normal 150-450 [facility] Comment on above: Order Comment: 109-1 Performed By: #### L 100.0100 ####[facility] [address] [place], [address] RBC (Bld) [#/Vol] 4.69 10*6/uL Normal 4.6-6.2 [facility] Comment on above: Order Comment: 109-1 Performed By: #### L 100.0100 ####[facility] [address] [place], [address] RDW SD 43.4 fl Normal 35.1-43.9 [facility] Comment on above: Order Comment: 109-1 Performed By: #### L 100.0100 ####[facility] [address] [place], [address] WBC (Bld) [#/Vol] 11.7 10*3/uL High 4.4-11.0 [facility] Comment on above: Order Comment: 109-1 Performed By: #### L 100.0100 ####[facility] [address] [place], [address] CBC W/Diff, Automatedon 07-0 8-2024 Absolute Lymph 2.13 X10 3/uL Normal 0.83-4.51 [facility] Comment on above: Order Comment: 109-1 Performed By: #### L 100.0100 ####[facility] [address] [place], [address] Absolute Neut 4.7 X10 3/uL Normal 2.0-7.7 [facility] Comment on above: Order Comment: 109-1 Performed By: #### L 100.0100 ####[facility] [address] [place], [address] Basophils/100 WBC (Bld) 0.7 % Normal 0-1 [facility] Comment on above: Order Comment: 109-1 Performed By: #### L 100.0100 ####[facility] [address] [place], [address] Eosinophils/100 WBC (Bld) 0.4 % Normal 0-5 [facility] Comment on above: Order Comment: 109-1 Performed By: #### L 100.0100 ####[facility] [address] [place], [address] Erythrocyte distribution width (RBC) [Ratio] 13.1 % Normal 11.6-14.6 [facility] Comment on above: Order Comment: 109-1 Performed By: #### L 100.0100 ####[facility] [address] [place], [address] Hematocrit (Bld) [Volume fraction] 42.4 % Normal 40-54 [facility] Comment on above: Order Comment: 109-1 Performed By: #### L 100.0100 ####[facility] [address] [place], [address] Hemoglobin (Bld) [Mass/Vol] 13.9 g/dL Normal 13.0-16.5 [facility] Comment on above: Order Comment: 109-1 Performed By: #### L 100.0100 ####[facility] [address] [place], [address] IG% 0.400 Normal 0.0-0.9 [facility] Comment on above: Order Comment: 109-1 Result Comment: IG% - Immature Granulocytes (promyelocytes, myelocytes andmetamyelocytes) > 1% indicates that a LEFT SHIFT is Present. Performed By: #### L 100.0100 ####[facility] [address] [place], [address] Lymphocytes/100 WBC (Bld) 28.1 % Normal 19-41 [facility] Comment on above: Order Comment: 109-1 Performed By: #### L 100.0100 ####[facility] [address] [place], [address] MCH (RBC) [Entitic mass] 30.3 pg Normal 27.0-32.0 [facility] Comment on above: Order Comment: 109-1 Performed By: #### L 100.0100 ####[facility] [address] [place], [address] MCHC (RBC) [Mass/Vol] 32.8 g/dL Normal 32-36 [facility] Comment on above: Order Comment: 109-1 Performed By: #### L 100.0100 ####[facility] [address] [place], [address] MCV (RBC) [Entitic vol] 92.4 fL Normal 80-94 [facility] Comment on above: Order Comment: 109-1 Performed By: #### L 100.0100 ####[facility] [address] [place], [address] Monocytes/100 WBC (Bld) 8.8 % Normal 0-10 [facility] Comment on above: Order Comment: 109-1 Performed By: #### L 100.0100 ####[facility] [address] [place], [address] Neutrophils/100 WBC (Bld) 61.6 % Normal 47-70 [facility] Comment on above: Order Comment: 109-1 Performed By: #### L 100.0100 ####[facility] [address] [place], [address] Nucleated RBC (Bld) [#/Vol] 0 10*3/uL Normal 0-5 [facility] Comment on above: Order Comment: 109-1 Performed By: #### L 100.0100 ####[facility] [address] [place], [address] Platelet mean volume (Bld) [Entitic vol] 10.9 fL Normal 6.2-12.0 [facility] Comment on above: Order Comment: 109-1 Performed By: #### L 100.0100 ####[facility] [address] [place], [address] Platelets (Bld) [#/Vol] 173 10*3/uL Normal 150-450 [facility] Comment on above: Order Comment: 109-1 Performed By: #### L 100.0100 ####[facility] [address] [place], [address] RBC (Bld) [#/Vol] 4.59 10*6/uL Low 4.6-6.2 [facility] Comment on above: Order Comment: 109-1 Performed By: #### L 100.0100 ####[facility] [address] [place], [address] RDW SD 44.0 fl High 35.1-43.9 [facility] Comment on above: Order Comment: 109-1 Performed By: #### L 100.0100 ####[facility] [address] [place], [address] WBC (Bld) [#/Vol] 7.6 10*3/uL Normal 4.4-11.0 [facility] Comment on above: Order Comment: 109-1 Performed By: #### L 100.0100 ####[facility] [address] [place], [address] CBC W/Diff, Automatedon 07-0 1-4 Absolute Lymph 3.06 X10 3/uL Normal 0.83-4.51 [facility] Comment on above: Order Comment: 109-1 Performed By: #### L 100.0100 ####[facility] [address] [place], [address] Absolute Neut 5.1 X10 3/uL Normal 2.0-7.7 [facility] Comment on above: Order Comment: 109-1 Performed By: #### L 100.0100 ####[facility] [address] [place], [address] Basophils/100 WBC (Bld) 0.5 % Normal 0-1 [facility] Comment on above: Order Comment: 109-1 Performed By: #### L 100.0100 ####[facility] [address] [place], [address] Eosinophils/100 WBC (Bld) 0.3 % Normal 0-5 [facility] Comment on above: Order Comment: 109-1 Performed By: #### L 100.0100 ####[facility] [address] [place], [address] Erythrocyte distribution width (RBC) [Ratio] 13.2 % Normal 11.6-14.6 [facility] Comment on above: Order Comment: 109-1 Performed By: #### L 100.0100 ####[facility] [address] [place], [address] Hematocrit (Bld) [Volume fraction] 43.8 % Normal 40-54 [facility] Comment on above: Order Comment: 109-1 Performed By: #### L 100.0100 ####[facility] [address] [place], [address] Hemoglobin (Bld) [Mass/Vol] 13.9 g/dL Normal 13.0-16.5 [facility] Comment on above: Order Comment: 109-1 Performed By: #### L 100.0100 ####[facility] [address] [place], [address] IG% 0.400 Normal 0.0-0.9 [facility] Comment on above: Order Comment: 109-1 Result Comment: IG% - Immature Granulocytes (promyelocytes, myelocytes andmetamyelocytes) > 1% indicates that a LEFT SHIFT is Present. Performed By: #### L 100.0100 ####[facility] [address] [place], [address] Lymphocytes/100 WBC (Bld) 32.4 % Normal 19-41 [facility] Comment on above: Order Comment: 109-1 Performed By: #### L 100.0100 ####[facility] [address] [place], [address] MCH (RBC) [Entitic mass] 29.3 pg Normal 27.0-32.0 [facility] Comment on above: Order Comment: 109-1 Performed By: #### L 100.0100 ####[facility] [address] [place], [address] MCHC (RBC) [Mass/Vol] 31.7 g/dL Low 32-36 [facility] Comment on above: Order Comment: 109-1 Performed By: #### L 100.0100 ####[facility] [address] [place], [address] MCV (RBC) [Entitic vol] 92.4 fL Normal 80-94 [facility] Comment on above: Order Comment: 109-1 Performed By: #### L 100.0100 ####[facility] [address] [place], [address] Monocytes/100 WBC (Bld) 11.9 % High 0-10 [facility] Comment on above: Order Comment: 109-1 Performed By: #### L 100.0100 ####[facility] [address] [place], [address] Neutrophils/100 WBC (Bld) 54.5 % Normal 47-70 [facility] Comment on above: Order Comment: 109-1 Performed By: #### L 100.0100 ####[facility] [address] [place], [address] Nucleated RBC (Bld) [#/Vol] 0 10*3/uL Normal 0-5 [facility] Comment on above: Order Comment: 109-1 Performed By: #### L 100.0100 ####[facility] [address] [place], [address] Platelet mean volume (Bld) [Entitic vol] 11.7 fL Normal 6.2-12.0 [facility] Comment on above: Order Comment: 109-1 Performed By: #### L 100.0100 ####[facility] [address] [place], [address] Platelets (Bld) [#/Vol] 203 10*3/uL Normal 150-450 [facility] Comment on above: Order Comment: 109-1 Performed By: #### L 100.0100 ####[facility] [address] [place], [address] RBC (Bld) [#/Vol] 4.74 10*6/uL Normal 4.6-6.2 [facility] Comment on above: Order Comment: 109-1 Performed By: #### L 100.0100 ####[facility] [address] [place], [address] RDW SD 44.7 fl High 35.1-43.9 [facility] Comment on above: Order Comment: 109-1 Performed By: #### L 100.0100 ####[facility] [address] [place], [address] WBC (Bld) [#/Vol] 9.4 10*3/uL Normal 4.4-11.0 [facility] Comment on above: Order Comment: 109-1 Performed By: #### L 100.0100 ####[facility] [address] [place], [address] CBC W/Diff, Automatedon -06 04-2023 Absolute Lymph 2.08 X10 3/uL Normal 0.83-4.51 [facility] Comment on above: Order Comment: 109-1 Performed By: #### L 100.0100 ####[facility] [address] [place], [address] Absolute Neut 4.3 X10 3/uL Normal 2.0-7.7 [facility] Comment on above: Order Comment: 109-1 Performed By: #### L 100.0100 ####[facility] [address] [place], [address] Basophils/100 WBC (Bld) 0.6 % Normal 0-1 [facility] Comment on above: Order Comment: 109-1 Performed By: #### L 100.0100 ####[facility] [address] [place], [address] Eosinophils/100 WBC (Bld) 0.6 % Normal 0-5 [facility] Comment on above: Order Comment: 109-1 Performed By: #### L 100.0100 ####[facility] [address] [place], [address] Erythrocyte distribution width (RBC) [Ratio] 12.9 % Normal 11.6-14.6 [facility] Comment on above: Order Comment: 109-1 Performed By: #### L 100.0100 ####[facility] [address] [place], [address] Hematocrit (Bld) [Volume fraction] 39.1 % Low 40-54 [facility] Comment on above: Order Comment: 109-1 Performed By: #### L 100.0100 ####[facility] [address] [place], [address] Hemoglobin (Bld) [Mass/Vol] 12.6 g/dL Low 13.0-16.5 [facility] Comment on above: Order Comment: 109-1 Performed By: #### L 100.0100 ####[facility] [address] [place], [address] IG% 0.400 Normal 0.0-0.9 [facility] Comment on above: Order Comment: 109-1 Result Comment: IG% - Immature Granulocytes (promyelocytes, myelocytes andmetamyelocytes) > 1% indicates that a LEFT SHIFT is Present. Performed By: #### L 100.0100 ####[facility] [address] [place], [address] Lymphocytes/100 WBC (Bld) 29.1 % Normal 19-41 [facility] Comment on above: Order Comment: 109-1 Performed By: #### L 100.0100 ####[facility] [address] [place], [address] MCH (RBC) [Entitic mass] 29.7 pg Normal 27.0-32.0 [facility] Comment on above: Order Comment: 109-1 Performed By: #### L 100.0100 ####[facility] [address] [place], [address] MCHC (RBC) [Mass/Vol] 32.2 g/dL Normal 32-36 [facility] Comment on above: Order Comment: 109-1 Performed By: #### L 100.0100 ####[facility] [address] [place], [address] MCV (RBC) [Entitic vol] 92.2 fL Normal 80-94 [facility] Comment on above: Order Comment: 109-1 Performed By: #### L 100.0100 ####[facility] [address] [place], [address] Monocytes/100 WBC (Bld) 9.6 % Normal 0-10 [facility] Comment on above: Order Comment: 109-1 Performed By: #### L 100.0100 ####[facility] [address] [place], [address] Neutrophils/100 WBC (Bld) 59.7 % Normal 47-70 [facility] Comment on above: Order Comment: 109-1 Performed By: #### L 100.0100 ####[facility] [address] [place], [address] Nucleated RBC (Bld) [#/Vol] 0 10*3/uL Normal 0-5 [facility] Comment on above: Order Comment: 109-1 Performed By: #### L 100.0100 ####[facility] [address] [place], [address] Platelet mean volume (Bld) [Entitic vol] 11.3 fL Normal 6.2-12.0 [facility] Comment on above: Order Comment: 109-1 Performed By: #### L 100.0100 ####[facility] [address] [place], [address] Platelets (Bld) [#/Vol] 200 10*3/uL Normal 150-450 [facility] Comment on above: Order Comment: 109-1 Performed By: #### L 100.0100 ####[facility] [address] [place], [address] RBC (Bld) [#/Vol] 4.24 10*6/uL Low 4.6-6.2 [facility] Comment on above: Order Comment: 109-1 Performed By: #### L 100.0100 ####[facility] [address] [place], [place], [address] RDW SD 43.5 fl Normal 35.1-43.9 [facility] Comment on above: Order Comment: 109-1 Performed By: #### L 100.0100 ####[facility] [address] [place], [place], [address] WBC (Bld) [#/Vol] 7.2 10*3/uL Normal 4.4-11.0 [facility] Comment on above: Order Comment: 109-1 Performed By: #### L 100.0100 ####[facility] [address] [place], [place], [address] CBC W Auto Differential pane l (Bld)on 10-02-2023 Basophils (Bld) [#/Vol] 0.0 10*3/uL 0.0 - 0.2 10*3/uL [facility] Basophils/100 WBC (Bld) 0.3 % 0.0 - 2.0 % [facility] Eosinophils (Bld) [#/Vol] 0.0 10*3/uL 0.0 - 0.5 10*3/uL [facility] Eosinophils/100 WBC (Bld) 0.0 % 0.0 - 6.0 % [facility] Erythrocyte distribution width (RBC) [Ratio] 13.0 % 11.5 - 15.0 % [facility] Hematocrit (Bld) [Volume fraction] 37.8 % Low 40.0 - 52.0 % [facility] Hemoglobin (Bld) [Mass/Vol] 13.0 g/dL 13.0 - 18.0 g/dL [facility] Immature granulocytes (Bld) [#/Vol] 0.1 10*3/uL High NINF - 0.1 10*3/uL [facility] Immature granulocytes/100 WBC (Bld) 0.5 % 0.0 - 2.0 % [facility] Interpretation and review of laboratory results Abnormal [facility] Lymphocytes (Bld) [#/Vol] 0.9 10*3/uL Low 1.0 - 4.3 10*3/uL [facility] [employer] Lymphocytes/100 WBC (Bld) 8.4 % Low 15.0 - 45.0 % [facility] [employer] MCH (RBC) [Entitic mass] 30.3 pg 26.0 - 34.0 pg [facility] [employer] MCHC (RBC) [Mass/Vol] 34.4 % 30.5 - 36.0 % [facility] [employer] MCV (RBC) [Entitic vol] 88.1 fL 77.0 - 99.0 fL [facility] Monocytes (Bld) [#/Vol] 0.9 10*3/uL 0.0 - 0.9 10*3/uL [facility] Monocytes/100 WBC (Bld) 8.2 % 5.0 - 13.0 % [facility] [employer] Neutrophils (Bld) [#/Vol] 8.9 10*3/uL High 1.8 - 7.5 10*3/uL [facility] Neutrophils/100 WBC (Bld) 82.6 % High 38.0 - 82.0 % [facility] Nucleated RBC/100 WBC (Bld) [Ratio] 0.0 % [facility] [employer] Platelet mean volume (Bld) [Entitic vol] 10.7 fL 9.0 - 12.7 fL [facility] [employer] Platelets (Bld) [#/Vol] 148 10*3/uL 140 - 440 10*3/uL [facility] [employer] RBC (Bld) [#/Vol] 4.29 10*6/uL Low 4.40 - 5.9 0 10*6/uL [facility] [employer] WBC (Bld) [#/Vol] 10.7 10*3/uL 3.6 - 10.7 10*3/uL [facility] CBC WITH AUTO DIFFERENTIALon 10-02-2023 Basophils (Bld) [#/Vol] 0.0 10*3/uL Normal 0.0-0.2 [facility] Comment on above: Performed By: #### L [id number] #### Party Plan Sales Director: CYNDI LILLY ([id number]) [facility] ([facility]) [address] [place] [address] Basophils/100 WBC (Bld) 0.3 % Normal 0.0-2.0 [facility] Comment on above: Performed By: #### L [id number] #### Party Plan Sales Director: CYNDI LILLY ([id number]) [facility] ([facility] [address] Eosinophils (Bld) [#/Vol] 0.0 10*3/uL Normal 0.0-0.5 [facility] Comment on above: Performed By: #### L [id number] #### [employer] Plan Sales Director: CYNDI LILLY ([id number]) [facility] [address] Eosinophils/100 WBC (Bld) 0.0 % Normal 0.0-6.0 [facility] Comment on above: Performed By: #### L [id number] #### [employer] Plan Sales Director: CYNDI LILLY ([id number]) [facility] ([facility]) [address] Erythrocyte distribution width (RBC) [Ratio] 13.0 % Normal 11.5-15.0 [facility] Comment on above: Performed By: #### L [id number] #### Party Plan Sales Director: CYNDI LILLY ([id number]) [facility] ([facility]) [address] [place] [address] Hematocrit (Bld) [Volume fraction] 37.8 % Low 40.0-52.0 [facility] Comment on above: Performed By: #### L [id number] #### [employer] Plan Sales Director: CYNDI LILLY ([id number]) [facility] ([facility]) [address] Hemoglobin (Bld) [Mass/Vol] 13.0 g/dL Normal 13.0-18.0 [facility] Comment on above: Performed By: #### L [id number] #### [employer] Plan Sales Director: CYNDI LILLY ([id number]) [facility] ([facility]) [address] [place] [address] [place] IMMATURE GRANS % 0.5 % Normal 0.0-2.[address] [facility] Comment on above: Performed By: #### L [id number] #### Party Plan Sales Director: CYNDI LILLY ([id number]) [facility] ([facility]) [address] IMMATURE GRANS ABSOLUTE 0.1 10*3/uL High <0.1 [facility] Comment on above: Performed By: #### L [id number] #### Party Plan Sales Director: CYNDI LILLY ([id number]) [facility] ([facility]) [address] Lymphocytes (Bld) [#/Vol] 0.9 10*3/uL Low 1.0-4.3 [facility] Comment on above: Performed By: #### L [id number] #### [employer] Plan Sales Director: CYNDI DRIVERRADHA ([id number]) [facility] ([facility]) [address] Lymphocytes/100 WBC (Bld) 8.4 % Low 15.0-45.0 [facility] Comment on above: Performed By: #### L [id number] #### [employer] Plan Sales Director: CYNDI LILLY ([id number]) [facility] ([facility]) [address] MCH (RBC) [Entitic mass] 30.3 pg Normal 26.0-34.0 [facility] Comment on above: Performed By: #### L [id number] #### Party Plan Sales Director: CYNDI DRIVERRADHA ([id number]) [facility] ([facility]) [address] MCHC 34.4 % Normal 30.5-36.0 [facility] Comment on above: Performed By: #### L [id number] #### Party Plan Sales Director: CYNDI LILLY ([id number]) [facility] ([facility]) [address] MCV (RBC) [Entitic vol] 88.1 fL Normal 77.0-99.0 [facility] Comment on above: Performed By: #### L [id number] #### Party Plan Sales Director: CYNDI LILLY ([id number]) [facility] [place] [facility] [address] Monocytes (Bld) [#/Vol] 0.9 10*3/uL Normal 0.0-0.9 [facility] Comment on above: Performed By: #### L [id number] #### Party Plan Sales Director: CYNDI LILLY ([id number]) [facility] [place] [facility] [address] Monocytes/100 WBC (Bld) 8.2 % Normal 5.0-13.0 [facility] Comment on above: Performed By: #### L [id number] #### Party Plan Sales Director: CYNDI LILLY ([id number]) [facility] [place] [facility] [address] NEUTROPHILS ABSOLUTE 8.9 10*3/uL High 1.8-7.5 [facility] Comment on above: Performed By: #### L [id number] #### Party Plan Sales Director: CYNDI LILLY ([id number]) [facility] [place] [facility] [address] Neutrophils/100 WBC (Bld) 82.6 % High 38.0-82.0 [facility] Comment on above: Performed By: #### L [id number] #### Party Plan Sales Director: CYNDI LILLY ([id number]) [facility] [place] [facility] [address] [place] [address] [place] NRBC 0.0 /100 WBCs Normal 0.0-2.0 [facility] Comment on above: Performed By: #### L [id number] #### Party Plan Sales Director: CYNDI LILLY ([id number]) [facility] [place] [facility] [address] [place] [address] [place] Platelet mean volume (Bld) [Entitic vol] 10.7 fL Normal 9.0-12.7 [facility] Comment on above: Performed By: #### L [id number] #### Party Plan Sales Director: CYNDI LILLY ([id number]) [facility] [address] Platelets (Bld) [#/Vol] 148 10*3/uL Normal 140-440 [facility] Comment on above: Performed By: #### L [id number] #### Party Plan Sales Director: CYNDI LILLY ([id number]) [facility] [address] RBC (Bld) [#/Vol] 4.29 10*6/uL Low 4.40-5.90 [facility] Comment on above: Performed By: #### L [id number] #### Party Plan Sales Director: CYNDI LILLY ([id number]) [facility] ([facility]) [address] WBC (Bld) [#/Vol] 10.7 10*3/uL Normal 3.6-10.7 [facility] Comment on above: Performed By: #### L [id number] #### Party Plan Sales Director: CYNDI LILLY ([id number]) [facility] ([facility]) [address] COMPREHENSIVE METABOLIC PANE Reji 10-02-2023 Albumin [Mass/Vol] 3.7 g/dL Normal 3.5-5.0 [facility] Comment on above: Performed By: #### L AB17, [id number] ####Party Plan Sales Director: CYNDI LILLY ([id number])[facility] ([facility])[address] ALP [Catalytic activity/Vol] 78 U/L Normal 38-126 [facility] Comment on above: Performed By: #### L AB17, [id number] ####Party Plan Sales Director: CYNDI LILLY ([id number])[facility] ([facility])[address] [place] [address] [place] ALT [Catalytic activity/Vol] 21 U/L Normal 0-49 [facility] Comment on above: Performed By: #### Alban SMITH, [id number] ####Party Plan Sales Director: CYNDI LILLY ([id number])[facility] [place])[address] Anion gap [Moles/Vol] 10 mmol/L Normal 3-13 [facility] Comment on above: Performed By: #### Alban SMITH, [id number] ####Party Plan Sales Director: CYNDI LILLY ([id number])[facility] ([facility])[address] AST [Catalytic activity/Vol] 29 U/L Normal 15-46 [facility] Comment on above: Performed By: #### Alban YEH17, [id number] ####Party Plan Sales Director: CYNDI LILLY ([id number])[facility] ([facility])[address] Bilirubin [Mass/Vol] 1.1 mg/dL Normal 0.2-1.3 [facility] Comment on above: Performed By: #### Alban SMITH, [id number] ####Party Plan Sales Director: CYNDI LILLY ([id number])[facility] ([facility])[address] Calcium [Mass/Vol] 7.8 mg/dL Low 8.4-10.4 [facility] Comment on above: Performed By: #### Alban AB17, [id number] ####Party Plan Sales Director: CYNDI LILLY ([id number])[facility] ([facility])[address] [place] [address] [place] Chloride [Moles/Vol] 102 mmol/L Normal 98-107 [facility] Comment on above: Performed By: #### L AB17, [id number] ####Party Plan Sales Director: CYNDI LILLY ([id number])[facility] ([facility])[address] [place] [address] [place] CO2 [Moles/Vol] 23 mmol/L Normal 22-[address] [facility] Comment on above: Performed By: #### Alban YEH17, [id number] ####Party Plan Sales Director: CYNDI LILLY ([id number])[facility] [place] ([facility])[address] Creatinine [Mass/Vol] 0.58 mg/dL Low 0.66-1.25 [facility] Comment on above: Performed By: #### Alban YEH17, [id number] ####Party Plan Sales Director: CYNDI LILLY ([id number])[facility] ([facility])[address] GLOMERULAR FILTRATION RATE ML/MIN/1.73 SQ M.PREDICTED >90.0 Normal >60.0 [facility] Comment on above: Result Comment: Calc ulation based on the Chronic Kidney Disease Epidemiology Collaboration (CKD-EPI) equation refit without adjustment for race Performed By: #### Alban SMITH, [id number] ####Party Plan Sales Director: CYNDI LILLY ([id number])[facility] [place] ([facility])[address] Glucose [Mass/Vol] 111 mg/dL High 70-100 [facility] Comment on above: Performed By: #### Alban YEH17, [id number] ####Party Plan Sales Director: CYNDI LILLY ([id number])[facility] ([facility])[address] Potassium [Moles/Vol] 4.0 mmol/L Normal 3.5-5.1 [facility] Comment on above: Performed By: #### Alban YEH17, [id number] ####Party Plan Sales Director: CYNDI LILLY ([id number])[facility] ([facility])[address] Protein [Mass/Vol] 6.5 g/dL Normal 6.3-8.2 [facility] Comment on above: Performed By: #### Alban YEH17, [id number] ####Party Plan Sales Director: CYNDI LILLY ([id number])[facility] ([facility])[address] Sodium [Moles/Vol] 135 mmol/L Normal 135-145 [facility] Comment on above: Performed By: #### L AB17, [id number] ####Party Plan Sales Director: CYNDI LILLY ([id number])[facility] ([facility])[address] Urea nitrogen [Mass/Vol] 18 mg/dL Normal 9-20 [facility] Comment on above: Performed By: #### L AB17, [id number] ####Party Plan Sales Director: CYNDI LILLY ([id number])[facility] HEAD WO IV CONTRASTon CT HEAD WO IV CONTRAST [facility] 1955 [id number] Exam Date/Time: 10/02/2023 11:03 Procedure: CT HEAD WO IV CONTRAST Ordering Provider: TOLEDO AMY Reason For Exam: Neuro deficit, acute, stroke suspected EXAMINATION: CT HEAD WO IV CONTRAST HISTORY: Neuro deficit, acute, stroke suspected - - - - - [id number] - - - - TECHNIQUE: CT head [...] has seen him for that day, shift commander did not report any problems. EMS states [...] has no complaints at this time. Normal [facility] CT Head WO contraston [address] evidence of an acute intracranial abnormality. Report Dictated on Electronically Signed By: Maria Eugenia Ruiz MD Electronically Signed Date/Time: 10/02/2023 11:09 AM T [facility] Patient Name: KATHYA HOOPER : 1955 Exam Date/Time: 10/02/2023 11:03 Procedure: CT HEAD WO IV CONTRAST Ordering Provider: TOLEDO AMY Reason For Exam: Neuro deficit, acute, stroke suspected EXAMINATION: CT HEAD WO IV CONTRAST HISTORY: Neuro deficit, acute, stroke suspected - - - - - [id number] - - - - TECHNIQUE: CT head [...] air cells and the left sphenoid sinus [facility] Maria Eugenia Ruiz MD - 10/02/2023 Patient Name: KATHYA HOOPER : 1955 Exam Date/Time: 10/02/2023 11:03 Procedure: CT HEAD WO IV CONTRAST Ordering Provider: TOLEDO AMY Reason For Exam: Neuro deficit, acute, stroke suspected EXAMINATION: CT HEAD WO IV CONTRAST HISTORY: Neuro deficit, acute, stroke suspected - - - - - [id number] - - - - TECHNIQUE: CT head [...] Electronically Signed Date/Time: 10/02/2023 11:09 AM EDT [facility] Rad[facility]narrative[facility] contrastOrdered B y: Maria Eugenia Ruiz on 10-02-2023 [facility] [employer] Work Phone: Comprehensive metabolic 1998 panelon 10-02-2023 Albumin [Mass/Vol] 3.7 g/dL 3.5 - 5.0 g/dL [facility] [employer] ALP [Catalytic activity/Vol] 78 U/L 38 - 126 U/L [facility] [employer] ALT [Catalytic activity/Vol] 21 U/L 0 - 49 U/L [facility] Anion gap [Moles/Vol] 10 mmol/L 3 - 13 mmol/L [facility] AST [Catalytic activity/Vol] 29 U/L 15 - 46 U/L [facility] [employer] Bilirubin [Mass/Vol] 1.1 mg/dL 0.2 - 1 .3 mg/dL [facility] [employer] Calcium [Mass/Vol] 7.8 mg/dL Low 8.4 - 10. 4 mg/dL [facility] Chloride [Moles/Vol] 102 mmol/L 98 - 10 7 mmol/L [facility] CO2 [Moles/Vol] 23 mmol/L 22 - 30 mmol/L [facility] Creatinine [Mass/Vol] 0.58 mg/dL Low 0.66 - 1.25 mg/dL [facility] GFR/1.73 sq M.predicted MDRD (S/P/Bld) [Vol rate/Area] - PINF [facility] Comment on above: Calculation based on the Chronic Kidney Disease Epidemiology Collaboration (CKD-EPI) equation refit without adjustment for race Glucose [Mass/Vol] 111 mg/dL High 70 - 100 mg/dL [facility] Interpretation and review of laboratory results Abnormal [facility] Potassium [Moles/Vol] 4.0 mmol/L 3.5 - 5.1 mmol/L [facility] Protein [Mass/Vol] 6.5 g/dL 6.3 - 8.2 g/dL [facility] Sodium [Moles/Vol] 135 mmol/L 135 - 145 mmol/L [facility] Urea nitrogen [Mass/Vol] 18 mg/dL 9 - 20 mg/dL [facility] ECG 12-LEADon 10-02-2023 ECG 12-LEAD IMPRESSION: Sinus tachycardia Left bundle branch block ST elevation secondary to IVCD Electronically Signed On 10-02-2023 12:40:15 EDT by Fei Farooq Normal [facility] ED Nursing Noteon 10-02-2023 ED Nursing Note [facility] at bedside at this time Mami Lantigua RN 10/02/23 1427 Normal [facility] ED Nursing Note This RN gave report to Marnie at [facility] at this time Mami Lantigua RN 10/02/23 1358 Normal [facility] ED Nursing Note This RN went to evaluate patient, was on 2L o2 and does not wear at baseline, plan is dc, this RN turned o2 off to trial patient, spo2 monitor on Mami Lantigua RN 10/02/23 1325 Normal [facility] ED Nursing Note Pt to ct via cart Eloisa Alfaro RN 10/02/23 1043 Normal [facility] ED Nursing Note Pt was brought [facility] for Left sided facial droop. Per EMS nurse is new and does not know patient very well but he is A&O x 2 at baseline. Per EMS the nurse states it was 20 mins ago. Contacted nurse that was caring for him and she states that was the first time she has seen him for that day, shift commander did not report any problems. EMS states [...] facility. Hx of schizophrenia. BS 131. [facility] ED Provider Noteon ED Provider Note [facility] ED eMERGENCY dEPARTMENT eNCOUnter Pt Name: Kathya [...] History: Diagnosis Date TREVER (acute kidney injury) ([facility]) ([facility]) Alcohol abuse 07/08/2018 Anxiety C1 spinal cord injury ([facility]) ([facility]) Depression Fall 06/2018 Schizophrenia ([facility]) SURGICALHISTORY Past Surgical History: Procedure Laterality Date [...] EmergencyPhysician): Interpret (more content not included)... Normal [facility] ED Provider Note Emergency Department Encounter [facility] ED Patient: Kathya Hooper : 1955 Date [...] Solutions Fei Farooq MD 10/02/23 1129 Normal [facility] Laboratory - Chemistry and C hemistry - challengeon 10-02-2023 Troponin I.cardiac [Mass/Vol] ng/mL NINF - 0.034 ng/mL [facility] Laboratory - Coagulationon 0 10-02-2023 aPTT Coag (PPP) [Time] 29.6 s 20.0 - 30.5 s [facility] [employer] INR Coag (PPP) [Relative time] 1.1 {INR} 0.9 - 1.1 [facility] Comment on above: Recommended Anticoag ulant [...] [Time] 11.6 s 9.0 - 12.0 s [facility] No Panel Informationon 10-01 Heart Rate 103 bpm [facility] P [place] 48 degrees [facility] ND Interval 172 ms [facility] QRS [place] -38 degrees [facility] QRSD [facility]val [facility]val 405 ms [facility] QTC Interval 532 ms [facility] T Wave [place] 109 degrees [facility] Sinus tachycardia Left bundle branch block ST elevation secondary to IVCD Electronically Signed On 10-02-2023 12:40:15 EDT by Fei Farooq Fei Lopez MD - 10/02/2023 IMPRESSION: Sinus tachycardia Left bundle branch block ST elevation secondary to IVCD Electronically Signed On 10-02-2023 12:40:15 EDT by Fei Farooq [facility] Interpretation and review of laboratory results Normal [facility] PROTIME AND APTTon aPTT Coag (Bld) [Time] 29.6 s Normal 20.0-30.[address] [facility] Comment on above: Performed By: #### L [id number] ####Party Plan Sales Director: CYNDI LILLY ([id number])[facility] ([facility])[address] [place] [address] INR Coag (PPP) [Relative time] 1.1 {INR} Normal 0.9-1.1 [facility] Comment on above: Result Comment: Yefri [...] prevent Myocardial Infarction Performed By: #### L [id number] ####Party Plan Sales Director: CYNDI LILLY ([id number])[facility] ([facility])[address] [place] [address] PT Coag (PPP) [Time] 11.6 s Normal 9.0-12.0 [facility] Comment on above: Performed By: #### L [id number] ####Party Plan Sales Director: CYNDI LILLY ([id number])[facility] ([facility])[address] [place] [address] TROPONIN, WITH SERIAL REFLEX on 10-02-2023 Troponin I.cardiac [Mass/Vol] ng/mL Normal <0.034 [facility] Comment on above: Result Comment: SHARON Stevens COMMENTS: Patients with high levels of Biotin oral intake (ie >5 mg/day) may have falsely decreased Troponin levels. Performed By: #### L [id number], [id number] ####[employer] Plan Sales Director: CYNDI LILLY ([id number])[facility] ([facility])[address] [place] [address] Troponin I.cardiac [Mass/Vol ]on 10-02-2023 Interpretation and review of laboratory results Normal [facility] Patients with high levels of Biotin oral intake (ie >5 mg/day) may have falsely decreased Troponin levels. [facility] XR Chest Single viewon 10-01 No acute cardiopulmonary disease. Report Dictated on Electronically Signed By: Maria Eugenia Ruiz MD Electronically Signed Date/Time: 10/02/2023 11:06 AM [facility] [employer] [facility] Patient Name: KATHYA HOOPER : 1955 [...] spine and shoulders. No acute osseous findings. [facility] Maria Eugenia Ruiz MD - [...] Electronically Signed Date/Time: 10/02/2023 11:06 AM EDT [facility] Radiology Study observation (narrative) [facility] alth Absolute lymphocyte countOrd ered By: Renard Burgos on 08-07-2023 Lymphocytes Auto (Unsp spec) [#/Vol] 2.23 10*3/uL 0.83-4.51 [facility] Automated lymphocyte count a s percentage of total leukocytesOrdered By: Renard Burgos on 08-07-2023 Lymphocytes/100 WBC Auto (Unsp spec) 23.9 % 19-41 [facility] Basophil percentageOrdered B y: Renard Burgos on 08-07-2023 Basophils/100 WBC (Bld) 0.4 % 0-1 [facility] Eosinophils/100 WBC (Bld) 0.4 % 0-5 [facility] Hemoglobin (Bld) [Mass/Vol] 13.9 g/dL 13.0-16.5 [facility] Monocytes/100 WBC (Bld) 8.0 % 0-10 [facility] Neutrophils (Bld) [#/Vol] 6.2 10*3/uL 2.0-7.7 [facility] Neutrophils/100 WBC (Bld) 66.9 % 47-70 [facility] WBC (Bld) [#/Vol] 9.3 10*3/uL 4.4-11.0 [facility] Determination of erythrocyte mean corpuscular volume (MCV)Ordered By: Renard Burgos on 08-07-2023 MCV (RBC) [Entitic vol] 90.0 fL 80-94 [facility] Erythrocyte distribution wid th ratioOrdered By: Renard Burgos on 08-07-2023 Erythrocyte distribution width (RBC) [Ratio] 13.0 % 11.6-14.6 [facility] Erythrocyte distribution wid th standard deviationOrdered By: Renard Burgos on 08-07-2023 Erythrocyte distribution width (RBC) [Entitic vol] 42.5 fL 35.1-43.9 [facility] Hematocrit Auto (Bld) [Volum e fraction]Ordered By: Renard Burgos on 08-07-2023 Hematocrit (Bld) [Volume fraction] 42.5 % 40-54 [facility] Immature granulocytes/100 WB C Auto (Bld)Ordered By: Renard Burgos on 08-07-2023 Immature granulocytes/100 WBC (Bld) 0.400 % 0.0-0.9 [facility] Comment on above: IG% - Immature Granu locytes (promyelocytes, myelocytes and metamyelocytes) > 1% indicates that a LEFT SHIFT is Present. Laboratory - Hematology and Cell countsOrdered By: Renard Burgos on 08-07-2023 MCH (RBC) [Entitic mass] 29.4 pg 27.0-32.0 [facility] MCHC (RBC) [Mass/Vol] 32.7 g/dL 32-36 [facility] Nucleated RBC/100 WBC (Bld) [Ratio] 0 % 0-5 [facility] Platelet mean volume (Bld) [Entitic vol] 10.7 fL 6.2-12.0 [facility] Platelets (Bld) [#/Vol] 210 10*3/uL 150-450 [facility] RBC Auto (Bld) [#/Vol]Ordere d By: Renard Burgos on 08-07-2023 RBC (Bld) [#/Vol] 4.72 10*6/uL 4.6-6.2 [facility] Absolute lymphocyte countOrd ered By: Renard Burgos on 07-31-2023 Lymphocytes Auto (Unsp spec) [#/Vol] 2.04 10*3/uL 0.83-4.51 [facility] Automated lymphocyte count a s percentage of total leukocytesOrdered By: Renard Burgos on 07-31-2023 Lymphocytes/100 WBC Auto (Unsp spec) 24.2 % 19-41 [facility] Basophil percentageOrdered B y: Renard Burgos on 07-31-2023 Basophils/100 WBC (Bld) 0.6 % 0-1 [facility] Eosinophils/100 WBC (Bld) 0.6 % 0-5 [facility] Hemoglobin (Bld) [Mass/Vol] 13.9 g/dL 13.0-16.5 [facility] Monocytes/100 WBC (Bld) 8.5 % 0-10 [facility] Neutrophils (Bld) [#/Vol] 5.5 10*3/uL 2.0-7.7 [facility] Neutrophils/100 WBC (Bld) 65.7 % 47-70 [facility] WBC (Bld) [#/Vol] 8.4 10*3/uL 4.4-11.0 [facility] Determination of erythrocyte mean corpuscular volume (MCV)Ordered By: Renard Burgos on 07-31-2023 MCV (RBC) [Entitic vol] 89.7 fL 80-94 [facility] Erythrocyte distribution wid th ratioOrdered By: Renard Burgos on 07-31-2023 Erythrocyte distribution width (RBC) [Ratio] 12.8 % 11.6-14.6 [facility] Erythrocyte distribution wid th standard deviationOrdered By: Renard Burgos on 07-31-2023 Erythrocyte distribution width (RBC) [Entitic vol] 42.2 fL 35.1-43.9 [facility] Hematocrit Auto (Bld) [Volum e fraction]Ordered By: Renard Burgos on 07-31-2023 Hematocrit (Bld) [Volume fraction] 41.7 % 40-54 [facility] Immature granulocytes/100 WB C Auto (Bld)Ordered By: Renard Burgos on 07-31-2023 Immature granulocytes/100 WBC (Bld) 0.400 % 0.0-0.9 [facility] Comment on above: IG% - Immature Granu locytes (promyelocytes, myelocytes and metamyelocytes) > 1% indicates that a LEFT SHIFT is Present. Laboratory - Hematology and Cell countsOrdered By: Renard Burgos on 07-31-2023 MCH (RBC) [Entitic mass] 29.9 pg 27.0-32.0 [facility] MCHC (RBC) [Mass/Vol] 33.3 g/dL 32-36 [facility] Nucleated RBC/100 WBC (Bld) [Ratio] 0 % 0-5 [facility] Platelet mean volume (Bld) [Entitic vol] 10.6 fL 6.2-12.0 [facility] Platelets (Bld) [#/Vol] 201 10*3/uL 150-450 [facility] RBC Auto (Bld) [#/Vol]Ordere d By: Renard Burgos on 07-31-2023 RBC (Bld) [#/Vol] 4.65 10*6/uL 4.6-6.2 [facility] Absolute lymphocyte countOrd ered By: Renard Burgos on 07-24-2023 Lymphocytes Auto (Unsp spec) [#/Vol] 2.00 10*3/uL 0.83-4.51 [facility] Automated lymphocyte count a s percentage of total leukocytesOrdered By: Renard Burgos on 07-24-2023 Lymphocytes/100 WBC Auto (Unsp spec) 26.2 % 19-41 [facility] Basophil percentageOrdered B y: Renard Burgos on 07-24-2023 Basophils/100 WBC (Bld) 0.7 % 0-1 [facility] Eosinophils/100 WBC (Bld) 0.7 % 0-5 [facility] Hemoglobin (Bld) [Mass/Vol] 14.2 g/dL 13.0-16.5 [facility] Monocytes/100 WBC (Bld) 6.4 % 0-10 [facility] Neutrophils (Bld) [#/Vol] 5.0 10*3/uL 2.0-7.7 [facility] Neutrophils/100 WBC (Bld) 65.6 % 47-70 [facility] WBC (Bld) [#/Vol] 7.6 10*3/uL 4.4-11.0 [facility] Determination of erythrocyte mean corpuscular volume (MCV)Ordered By: Renard Burgos on 07-24-2023 MCV (RBC) [Entitic vol] 89.8 fL 80-94 [facility] Erythrocyte distribution wid th ratioOrdered By: Renard Burgos on 07-24-2023 Erythrocyte distribution width (RBC) [Ratio] 12.8 % 11.6-14.6 [facility] Erythrocyte distribution wid th standard deviationOrdered By: Renard Burgos on 07-24-2023 Erythrocyte distribution width (RBC) [Entitic vol] 42.0 fL 35.1-43.9 [facility] Hematocrit Auto (Bld) [Volum e fraction]Ordered By: Renard Burgos on 07-24-2023 Hematocrit (Bld) [Volume fraction] 43.3 % 40-54 [facility] Immature granulocytes/100 WB C Auto (Bld)Ordered By: Renard Burgos on 07-24-2023 Immature granulocytes/100 WBC (Bld) 0.400 % 0.0-0.9 [facility] Comment on above: IG% - Immature Granu locytes (promyelocytes, myelocytes and metamyelocytes) > 1% indicates that a LEFT SHIFT is Present. Laboratory - Hematology and Cell countsOrdered By: Renard Burgos on 07-24-2023 MCH (RBC) [Entitic mass] 29.5 pg 27.0-32.0 [facility] MCHC (RBC) [Mass/Vol] 32.8 g/dL 32-36 [facility] Nucleated RBC/100 WBC (Bld) [Ratio] 0 % 0-5 [facility] Platelet mean volume (Bld) [Entitic vol] 11.0 fL 6.2-12.0 [facility] Platelets (Bld) [#/Vol] 215 10*3/uL 150-450 [facility] RBC Auto (Bld) [#/Vol]Ordere d By: Renard Burgos on 07-24-2023 RBC (Bld) [#/Vol] 4.82 10*6/uL 4.6-6.2 [facility] Absolute lymphocyte countOrd ered By: Renard Burgos on 07-17-2023 Lymphocytes Auto (Unsp spec) [#/Vol] 2.22 10*3/uL 0.83-4.51 [facility] Automated lymphocyte count a s percentage of total leukocytesOrdered By: Renard Burgos on 07-17-2023 Lymphocytes/100 WBC Auto (Unsp spec) 25.4 % 19-41 [facility] Basophil percentageOrdered B y: Renard Burgos on 07-17-2023 Basophils/100 WBC (Bld) 0.5 % 0-1 [facility] Cholesterol [Mass/Vol] 126 mg/dL <200 [facility] Comment on above: <200 mg/dL Desirable 200-240 mg/dL Borderline >240 mg/dL High Risk Eosinophils/100 WBC (Bld) 0.6 % 0-5 [facility] Hemoglobin (Bld) [Mass/Vol] 14.0 g/dL 13.0-16.5 [facility] Monocytes/100 WBC (Bld) 6.6 % 0-10 [facility] Neutrophils (Bld) [#/Vol] 5.8 10*3/uL 2.0-7.7 [facility] Neutrophils/100 WBC (Bld) 66.4 % 47-70 [facility] Triglyceride [Mass/Vol] 176 mg/dL <199 [facility] Comment on above: The drugs N-Acetylcy steine and Metamizole may falsely depress this assay.Serum Triglycerides Reference Interval Normal <150 mg/dL Borderline high 150 - 199 mg/dL High 200 - 499 mg/dL Very High > or = 500 mg/dL WBC (Bld) [#/Vol] 8.7 10*3/uL 4.4-11.0 [facility] Determination of erythrocyte mean corpuscular volume (MCV)Ordered By: Renard Burgos on 07-17-2023 MCV (RBC) [Entitic vol] 90.5 fL 80-94 [facility] Erythrocyte distribution wid th ratioOrdered By: Renard Burgos on 07-17-2023 Erythrocyte distribution width (RBC) [Ratio] 12.4 % 11.6-14.6 [facility] Erythrocyte distribution wid th standard deviationOrdered By: Renard Burgos on 07-17-2023 Erythrocyte distribution width (RBC) [Entitic vol] 41.1 fL 35.1-43.9 [facility] Hematocrit Auto (Bld) [Volum e fraction]Ordered By: Renard Burgos on 07-17-2023 Hematocrit (Bld) [Volume fraction] 42.8 % 40-54 [facility] Immature granulocytes/100 WB C Auto (Bld)Ordered By: Renard Burgos on 07-17-2023 Immature granulocytes/100 WBC (Bld) 0.500 % 0.0-0.9 [facility] Comment on above: IG% - Immature Granu locytes (promyelocytes, myelocytes and metamyelocytes) > 1% indicates that a LEFT SHIFT is Present. Laboratory - Chemistry and C hemistry - challengeOrdered By: Renard Burgos on 07-17-2023 Cholesterol in HDL [Mass/Vol] 28 mg/dL >40 [facility] Comment on above: The drugs N-Acetylcy steine and Metamizole may falsely depress this assay. Reference Range HDL <40 mg/dL Low HDL Cholesterol HDL >or= 60 mg/dL High HDL Cholesterol Cholesterol in LDL [Mass/Vol] 63 mg/dL 0-130 [facility] Laboratory - Hematology and Cell countsOrdered By: Renard Burgos on 07-17-2023 MCH (RBC) [Entitic mass] 29.6 pg 27.0-32.0 [facility] MCHC (RBC) [Mass/Vol] 32.7 g/dL 32-36 [facility] Nucleated RBC/100 WBC (Bld) [Ratio] 0 % 0-5 [facility] Platelet mean volume (Bld) [Entitic vol] 10.9 fL 6.2-12.0 [facility] Platelets (Bld) [#/Vol] 193 10*3/uL 150-450 [facility] No Panel InformationOrdered By: Renard Burgos on 07-17-2023 Vitamin D 25-Hydroxy 33.1 ng/mL [facility] Comment on above: Vitamin D 25(OH) Sta tus Range Deficiency <20 ng/mL (50nmol/L) Insufficiency 20 - 30 ng/mL (50 - 75 nmol/L) Sufficiency 30 - 100 ng/mL (75 - 250 nmol/L) Toxicity >100 ng/mL (>250 nmol/L) VLDL Cholesterol 35 mg/dL 5-40 [facility] RBC Auto (Bld) [#/Vol]Ordere d By: Renard Burgos on 07-17-2023 RBC (Bld) [#/Vol] 4.73 10*6/uL 4.6-6.2 [facility] Absolute lymphocyte countOrd ered By: Renard Burgos on 07-10-2023 Lymphocytes Auto (Unsp spec) [#/Vol] 2.14 10*3/uL 0.83-4.51 [facility] Automated lymphocyte count a s percentage of total leukocytesOrdered By: Renard Burgos on 07-10-2023 Lymphocytes/100 WBC Auto (Unsp spec) 24.7 % 19-41 [facility] Basophil percentageOrdered B y: Renard Burgos on 07-10-2023 Basophils/100 WBC (Bld) 0.3 % 0-1 [facility] Eosinophils/100 WBC (Bld) 0.3 % 0-5 [facility] Hemoglobin (Bld) [Mass/Vol] 13.8 g/dL 13.0-16.5 [facility] Monocytes/100 WBC (Bld) 7.8 % 0-10 [facility] Neutrophils (Bld) [#/Vol] 5.8 10*3/uL 2.0-7.7 [facility] Neutrophils/100 WBC (Bld) 66.4 % 47-70 [facility] WBC (Bld) [#/Vol] 8.7 10*3/uL 4.4-11.0 [facility] Determination of erythrocyte mean corpuscular volume (MCV)Ordered By: Reanrd Burgos on 07-10-2023 MCV (RBC) [Entitic vol] 88.9 fL 80-94 [facility] Erythrocyte distribution wid th ratioOrdered By: Renard Burgos on 07-10-2023 Erythrocyte distribution width (RBC) [Ratio] 12.6 % 11.6-14.6 [facility] Erythrocyte distribution wid th standard deviationOrdered By: Renard Burgos on 07-10-2023 Erythrocyte distribution width (RBC) [Entitic vol] 40.6 fL 35.1-43.9 [facility] Hematocrit Auto (Bld) [Volum e fraction]Ordered By: Renard Burgos on 07-10-2023 Hematocrit (Bld) [Volume fraction] 41.0 % 40-54 [facility] Immature granulocytes/100 WB C Auto (Bld)Ordered By: Renard Burgos on 07-10-2023 Immature granulocytes/100 WBC (Bld) 0.500 % 0.0-0.9 [facility] Comment on above: IG% - Immature Granu locytes (promyelocytes, myelocytes and metamyelocytes) > 1% indicates that a LEFT SHIFT is Present. Laboratory - Hematology and Cell countsOrdered By: Renard Burgos on 07-10-2023 MCH (RBC) [Entitic mass] 29.9 pg 27.0-32.0 [facility] MCHC (RBC) [Mass/Vol] 33.7 g/dL 32-36 [facility] Nucleated RBC/100 WBC (Bld) [Ratio] 0 % 0-5 [facility] Platelet mean volume (Bld) [Entitic vol] 11.0 fL 6.2-12.0 [facility] Platelets (Bld) [#/Vol] 215 10*3/uL 150-450 [facility] RBC Auto (Bld) [#/Vol]Ordere d By: Renard Burgos on 07-10-2023 RBC (Bld) [#/Vol] 4.61 10*6/uL 4.6-6.2 [facility] Absolute lymphocyte countOrd ered By: Renard Burgos on 07-03-2023 Lymphocytes Auto (Unsp spec) [#/Vol] 1.84 10*3/uL 0.83-4.51 [facility] Automated lymphocyte count a s percentage of total leukocytesOrdered By: Renard Burgos on 07-03-2023 Lymphocytes/100 WBC Auto (Unsp spec) 16.9 % 19-41 [facility] Basophil percentageOrdered B y: Renard Burgos on 07-03-2023 Basophil percentage 3.17 ng/mL 0.0-4.0 [facility] Comment on above: This test was perfor med using the TPSA assay method for [employer] chemistry system. Values obtained with differentassay methods cannot be used interchangably.When changing PSA assays in the course of monitoring apatient, additional sequential testing should be carriedout to confirm baseline values. Basophils/100 WBC (Bld) 0.5 % 0-1 [facility] Eosinophils/100 WBC (Bld) 0.4 % 0-5 [facility] Hemoglobin (Bld) [Mass/Vol] 13.2 g/dL 13.0-16.5 [facility] Monocytes/100 WBC (Bld) 7.4 % 0-10 [facility] Neutrophils (Bld) [#/Vol] 8.1 10*3/uL 2.0-7.7 [facility] Neutrophils/100 WBC (Bld) 74.4 % 47-70 [facility] WBC (Bld) [#/Vol] 10.9 10*3/uL 4.4-11.0 [facility] Determination of erythrocyte mean corpuscular volume (MCV)Ordered By: Renard Burgos on 07-03-2023 MCV (RBC) [Entitic vol] 89.8 fL 80-94 [facility] [facility] Erythrocyte distribution wid th ratioOrdered By: Renard Burgos on 07-03-2023 Erythrocyte distribution width (RBC) [Ratio] 12.7 % 11.6-14.6 [facility] Erythrocyte distribution wid th standard deviationOrdered By: Renard Burgos on 07-03-2023 Erythrocyte distribution width (RBC) [Entitic vol] 41.9 fL 35.1-43.9 [facility] Hematocrit Auto (Bld) [Volum e fraction]Ordered By: Renard Burgos on 07-03-2023 Hematocrit (Bld) [Volume fraction] 40.3 % 40-54 [facility] Immature granulocytes/100 WB C Auto (Bld)Ordered By: Renard Burgos on 07-03-2023 Immature granulocytes/100 WBC (Bld) 0.400 % 0.0-0.9 [facility] Comment on above: IG% - Immature Granu locytes (promyelocytes, myelocytes and metamyelocytes) > 1% indicates that a LEFT SHIFT is Present. Laboratory - Hematology and Cell countsOrdered By: Renard Burgos on 07-03-2023 MCH (RBC) [Entitic mass] 29.4 pg 27.0-32.0 [facility] MCHC (RBC) [Mass/Vol] 32.8 g/dL 32-36 [facility] Nucleated RBC/100 WBC (Bld) [Ratio] 0 % 0-5 [facility] Platelet mean volume (Bld) [Entitic vol] 11.2 fL 6.2-12.0 [facility] Platelets (Bld) [#/Vol] 191 10*3/uL 150-450 [facility] RBC Auto (Bld) [#/Vol]Ordere d By: Renard Burgos on 07-03-2023 RBC (Bld) [#/Vol] 4.49 10*6/uL 4.6-6.2 [facility] Absolute lymphocyte countOrd ered By: Renard Burgos on 06-26-2023 Lymphocytes Auto (Unsp spec) [#/Vol] 2.23 10*3/uL 0.83-4.51 [facility] Automated lymphocyte count a s percentage of total leukocytesOrdered By: Renard Burgos on 06-26-2023 Lymphocytes/100 WBC Auto (Unsp spec) 27.3 % 19-41 [facility] Basophil percentageOrdered B y: Renard Burgos on 06-26-2023 Basophils/100 WBC (Bld) 0.5 % 0-1 [facility] Eosinophils/100 WBC (Bld) 0.7 % 0-5 [facility] Hemoglobin (Bld) [Mass/Vol] 13.7 g/dL 13.0-16.5 [facility] Monocytes/100 WBC (Bld) 9.5 % 0-10 [facility] Neutrophils (Bld) [#/Vol] 5.1 10*3/uL 2.0-7.7 [facility] Neutrophils/100 WBC (Bld) 61.8 % 47-70 [facility] WBC (Bld) [#/Vol] 8.2 10*3/uL 4.4-11.0 [facility] Determination of erythrocyte mean corpuscular volume (MCV)Ordered By: Renard Burgos on 06-26-2023 MCV (RBC) [Entitic vol] 92.2 fL 80-94 [facility] Erythrocyte distribution wid th ratioOrdered By: Renard Burgos on 06-26-2023 Erythrocyte distribution width (RBC) [Ratio] 12.7 % 11.6-14.6 [facility] Erythrocyte distribution wid th standard deviationOrdered By: Renard Burgos on 06-26-2023 Erythrocyte distribution width (RBC) [Entitic vol] 42.8 fL 35.1-43.9 [facility] Hematocrit Auto (Bld) [Volum e fraction]Ordered By: Renard Burgos on 06-26-2023 Hematocrit (Bld) [Volume fraction] 42.6 % 40-54 [facility] Immature granulocytes/100 WB C Auto (Bld)Ordered By: Renard Burgos on 06-26-2023 Immature granulocytes/100 WBC (Bld) 0.200 % 0.0-0.9 [facility] Comment on above: IG% - Immature Granu locytes (promyelocytes, myelocytes and metamyelocytes) > 1% indicates that a LEFT SHIFT is Present. Laboratory - Hematology and Cell countsOrdered By: Renard Burgos on 06-26-2023 MCH (RBC) [Entitic mass] 29.7 pg 27.0-32.0 [facility] MCHC (RBC) [Mass/Vol] 32.2 g/dL 32-36 [facility] Nucleated RBC/100 WBC (Bld) [Ratio] 0 % 0-5 [facility] Platelet mean volume (Bld) [Entitic vol] 11.0 fL 6.2-12.0 [facility] Platelets (Bld) [#/Vol] 182 10*3/uL 150-450 [facility] RBC Auto (Bld) [#/Vol]Ordere d By: Renard Burgos on 06-26-2023 RBC (Bld) [#/Vol] 4.62 10*6/uL 4.6-6.2 [facility] Absolute lymphocyte countOrd ered By: Renard Burgos on 06-19-2023 Lymphocytes Auto (Unsp spec) [#/Vol] 2.13 10*3/uL 0.83-4.51 [facility] Automated lymphocyte count a s percentage of total leukocytesOrdered By: Renard Burgos on 06-19-2023 Lymphocytes/100 WBC Auto (Unsp spec) 28.8 % 19-41 [facility] Basophil percentageOrdered B y: Renard Burgos on 06-19-2023 Basophils/100 WBC (Bld) 0.5 % 0-1 [facility] Eosinophils/100 WBC (Bld) 0.5 % 0-5 [facility] Hemoglobin (Bld) [Mass/Vol] 13.7 g/dL 13.0-16.5 [facility] Monocytes/100 WBC (Bld) 8.1 % 0-10 [facility] Neutrophils (Bld) [#/Vol] 4.6 10*3/uL 2.0-7.7 [facility] Neutrophils/100 WBC (Bld) 61.6 % 47-70 [facility] WBC (Bld) [#/Vol] 7.4 10*3/uL 4.4-11.0 [facility] Determination of erythrocyte mean corpuscular volume (MCV)Ordered By: Renard Burgos on 06-19-2023 MCV (RBC) [Entitic vol] 91.7 fL 80-94 [facility] Erythrocyte distribution wid th ratioOrdered By: Renard Burgos on 06-19-2023 Erythrocyte distribution width (RBC) [Ratio] 12.7 % 11.6-14.6 [facility] Erythrocyte distribution wid th standard deviationOrdered By: Renard Burgos on 06-19-2023 Erythrocyte distribution width (RBC) [Entitic vol] 42.8 fL 35.1-43.9 [facility] Hematocrit Auto (Bld) [Volum e fraction]Ordered By: Renard Burgos on 06-19-2023 Hematocrit (Bld) [Volume fraction] 43.1 % 40-54 [facility] Immature granulocytes/100 WB C Auto (Bld)Ordered By: Renard Burgos on 06-19-2023 Immature granulocytes/100 WBC (Bld) 0.500 % 0.0-0.9 [facility] Comment on above: IG% - Immature Granu locytes (promyelocytes, myelocytes and metamyelocytes) > 1% indicates that a LEFT SHIFT is Present. Laboratory - Hematology and Cell countsOrdered By: Renard Burgos on 06-19-2023 MCH (RBC) [Entitic mass] 29.1 pg 27.0-32.0 [facility] MCHC (RBC) [Mass/Vol] 31.8 g/dL 32-36 [facility] Nucleated RBC/100 WBC (Bld) [Ratio] 0 % 0-5 [facility] Platelet mean volume (Bld) [Entitic vol] 11.1 fL 6.2-12.0 [facility] Platelets (Bld) [#/Vol] 201 10*3/uL 150-450 [facility] RBC Auto (Bld) [#/Vol]Ordere d By: Renard Burgos on 06-19-2023 RBC (Bld) [#/Vol] 4.70 10*6/uL 4.6-6.2 [facility] Absolute lymphocyte countOrd ered By: Renard Burgos on 06-12-2023 Lymphocytes Auto (Unsp spec) [#/Vol] 2.17 10*3/uL 0.83-4.51 [facility] Automated lymphocyte count a s percentage of total leukocytesOrdered By: Renard Burgos on 06-12-2023 Lymphocytes/100 WBC Auto (Unsp spec) 26.7 % 19-41 [facility] Basophil percentageOrdered B y: Renard Burgos on 06-12-2023 Basophils/100 WBC (Bld) 0.4 % 0-1 [facility] Eosinophils/100 WBC (Bld) 0.5 % 0-5 [facility] Hemoglobin (Bld) [Mass/Vol] 13.5 g/dL 13.0-16.5 [facility] Monocytes/100 WBC (Bld) 9.0 % 0-10 [facility] Neutrophils (Bld) [#/Vol] 5.1 10*3/uL 2.0-7.7 [facility] Neutrophils/100 WBC (Bld) 63.0 % 47-70 [facility] WBC (Bld) [#/Vol] 8.1 10*3/uL 4.4-11.0 [facility] Determination of erythrocyte mean corpuscular volume (MCV)Ordered By: Renard Burgos on 06-12-2023 MCV (RBC) [Entitic vol] 91.3 fL 80-94 [facility] Erythrocyte distribution wid th ratioOrdered By: Renard Burgos on 06-12-2023 Erythrocyte distribution width (RBC) [Ratio] 12.6 % 11.6-14.6 [facility] Erythrocyte distribution wid th standard deviationOrdered By: Renard Burgos on 06-12-2023 Erythrocyte distribution width (RBC) [Entitic vol] 41.5 fL 35.1-43.9 [facility] Hematocrit Auto (Bld) [Volum e fraction]Ordered By: Renard Burgos on 06-12-2023 Hematocrit (Bld) [Volume fraction] 40.8 % 40-54 [facility] Immature granulocytes/100 WB C Auto (Bld)Ordered By: Renard Burgos on 06-12-2023 Immature granulocytes/100 WBC (Bld) 0.400 % 0.0-0.9 [facility] Comment on above: IG% - Immature Granu locytes (promyelocytes, myelocytes and metamyelocytes) > 1% indicates that a LEFT SHIFT is Present. Laboratory - Hematology and Cell countsOrdered By: Renard Burgos on 06-12-2023 MCH (RBC) [Entitic mass] 30.2 pg 27.0-32.0 [facility] MCHC (RBC) [Mass/Vol] 33.1 g/dL 32-36 [facility] Nucleated RBC/100 WBC (Bld) [Ratio] 0 % 0-5 [facility] Platelet mean volume (Bld) [Entitic vol] 11.0 fL 6.2-12.0 [facility] Platelets (Bld) [#/Vol] 195 10*3/uL 150-450 [facility] RBC Auto (Bld) [#/Vol]Ordere d By: Renard Burgos on 06-12-2023 RBC (Bld) [#/Vol] 4.47 10*6/uL 4.6-6.2 [facility] Absolute lymphocyte countOrd ered By: Renard Burgos on 06-05-2023 Lymphocytes Auto (Unsp spec) [#/Vol] 2.05 10*3/uL 0.83-4.51 [facility] Automated lymphocyte count a s percentage of total leukocytesOrdered By: Renard Burgos on 06-05-2023 Lymphocytes/100 WBC Auto (Unsp spec) 24.1 % 19-41 [facility] Basophil percentageOrdered B y: Renard Burgos on 06-05-2023 Basophils/100 WBC (Bld) 0.5 % 0-1 [facility] Eosinophils/100 WBC (Bld) 0.5 % 0-5 [facility] Hemoglobin (Bld) [Mass/Vol] 13.6 g/dL 13.0-16.5 [facility] Monocytes/100 WBC (Bld) 7.6 % 0-10 [facility] Neutrophils (Bld) [#/Vol] 5.7 10*3/uL 2.0-7.7 [facility] Neutrophils/100 WBC (Bld) 66.9 % 47-70 [facility] WBC (Bld) [#/Vol] 8.5 10*3/uL 4.4-11.0 [facility] Determination of erythrocyte mean corpuscular volume (MCV)Ordered By: Renard Burgos on 06-05-2023 MCV (RBC) [Entitic vol] 89.7 fL 80-94 [facility] Erythrocyte distribution wid th ratioOrdered By: Renard Burgos on 06-05-2023 Erythrocyte distribution width (RBC) [Ratio] 12.6 % 11.6-14.6 [facility] Erythrocyte distribution wid th standard deviationOrdered By: Renard Burgos on 06-05-2023 Erythrocyte distribution width (RBC) [Entitic vol] 41.1 fL 35.1-43.9 [facility] Hematocrit Auto (Bld) [Volum e fraction]Ordered By: Renard Burgos on 06-05-2023 Hematocrit (Bld) [Volume fraction] 41.0 % 40-54 [facility] Immature granulocytes/100 WB C Auto (Bld)Ordered By: Renard Burgos on 06-05-2023 Immature granulocytes/100 WBC (Bld) 0.400 % 0.0-0.9 [facility] Comment on above: IG% - Immature Granu locytes (promyelocytes, myelocytes and metamyelocytes) > 1% indicates that a LEFT SHIFT is Present. Laboratory - Hematology and Cell countsOrdered By: Renard Burgos on 06-05-2023 MCH (RBC) [Entitic mass] 29.8 pg 27.0-32.0 [facility] MCHC (RBC) [Mass/Vol] 33.2 g/dL 32-36 [facility] Nucleated RBC/100 WBC (Bld) [Ratio] 0 % 0-5 [facility] Platelets (Bld) [#/Vol] 193 10*3/uL 150-450 [facility] Platelet mean volume Adam-Ec ker (Bld) [Entitic vol]Ordered By: Renard Burgos on 06-05-2023 Platelet mean volume (Bld) [Entitic vol] 10.8 fL 6.2-12.0 [facility] RBC Auto (Bld) [#/Vol]Ordere d By: Renard Burgos on 06-05-2023 RBC (Bld) [#/Vol] 4.57 10*6/uL 4.6-6.2 [facility] Absolute lymphocyte countOrd ered By: Renard Burgos on 05-29-2023 Lymphocytes Auto (Unsp spec) [#/Vol] 2.32 10*3/uL 0.83-4.51 [facility] Automated lymphocyte count a s percentage of total leukocytesOrdered By: Renard Burgos on 05-29-2023 Lymphocytes/100 WBC Auto (Unsp spec) 26.7 % 19-41 [facility] Basophil percentageOrdered B y: Renard Burgos on 05-29-2023 Basophils/100 WBC (Bld) 0.6 % 0-1 [facility] Eosinophils/100 WBC (Bld) 0.5 % 0-5 [facility] Hemoglobin (Bld) [Mass/Vol] 14.2 g/dL 13.0-16.5 [facility] Monocytes/100 WBC (Bld) 6.8 % 0-10 [facility] Neutrophils (Bld) [#/Vol] 5.7 10*3/uL 2.0-7.7 [facility] Neutrophils/100 WBC (Bld) 65.2 % 47-70 [facility] WBC (Bld) [#/Vol] 8.7 10*3/uL 4.4-11.0 [facility] Determination of erythrocyte mean corpuscular volume (MCV)Ordered By: Renard Burgos on 05-29-2023 MCV (RBC) [Entitic vol] 94.0 fL 80-94 [facility] Erythrocyte distribution wid th ratioOrdered By: Renard Burgos on 05-29-2023 Erythrocyte distribution width (RBC) [Ratio] 12.6 % 11.6-14.6 [facility] Erythrocyte distribution wid th standard deviationOrdered By: Renard Burgos on 05-29-2023 Erythrocyte distribution width (RBC) [Entitic vol] 43.0 fL 35.1-43.9 [facility] Hematocrit Auto (Bld) [Volum e fraction]Ordered By: Renard Burgos on 05-29-2023 Hematocrit (Bld) [Volume fraction] 45.4 % 40-54 [facility] Immature granulocytes/100 WB C Auto (Bld)Ordered By: Renard Burgos on 05-29-2023 Immature granulocytes/100 WBC (Bld) 0.200 % 0.0-0.9 [facility] Comment on above: IG% - Immature Granu locytes (promyelocytes, myelocytes and metamyelocytes) > 1% indicates that a LEFT SHIFT is Present. Laboratory - Hematology and Cell countsOrdered By: Renard Burgos on 05-29-2023 MCH (RBC) [Entitic mass] 29.4 pg 27.0-32.0 [facility] MCHC (RBC) [Mass/Vol] 31.3 g/dL 32-36 [facility] Nucleated RBC/100 WBC (Bld) [Ratio] 0 % 0-5 [facility] Platelets (Bld) [#/Vol] 116 10*3/uL 150-450 [facility] Platelet mean volume Adam-Ec ker (Bld) [Entitic vol]Ordered By: Renard Burgos on 05-29-2023 Platelet mean volume (Bld) [Entitic vol] 11.1 fL 6.2-12.0 [facility] RBC Auto (Bld) [#/Vol]Ordere d By: Renard Burgos on 05-29-2023 RBC (Bld) [#/Vol] 4.83 10*6/uL 4.6-6.2 [facility] Absolute lymphocyte countOrd ered By: Renard Burgos on 05-22-2023 Lymphocytes Auto (Unsp spec) [#/Vol] 2.40 10*3/uL 0.83-4.51 [facility] Automated lymphocyte count a s percentage of total leukocytesOrdered By: Renard Burgos on 05-22-2023 Lymphocytes/100 WBC Auto (Unsp spec) 25.6 % 19-41 [facility] Basophil percentageOrdered B y: Renard Burgos on 05-22-2023 Basophils/100 WBC (Bld) 0.4 % 0-1 [facility] Eosinophils/100 WBC (Bld) 0.4 % 0-5 [facility] Hemoglobin (Bld) [Mass/Vol] 13.7 g/dL 13.0-16.5 [facility] Monocytes/100 WBC (Bld) 9.1 % 0-10 [facility] Neutrophils (Bld) [#/Vol] 6.0 10*3/uL 2.0-7.7 [facility] Neutrophils/100 WBC (Bld) 63.9 % 47-70 [facility] WBC (Bld) [#/Vol] 9.4 10*3/uL 4.4-11.0 [facility] Determination of erythrocyte mean corpuscular volume (MCV)Ordered By: Renard Burgos on 05-22-2023 MCV (RBC) [Entitic vol] 91.8 fL 80-94 [facility] Erythrocyte distribution wid th ratioOrdered By: Renard Burgos on 05-22-2023 Erythrocyte distribution width (RBC) [Ratio] 12.8 % 11.6-14.6 [facility] Erythrocyte distribution wid th standard deviationOrdered By: Renard Burgos on 05-22-2023 Erythrocyte distribution width (RBC) [Entitic vol] 43.4 fL 35.1-43.9 [facility] Hematocrit Auto (Bld) [Volum e fraction]Ordered By: Renard Burgos on 05-22-2023 Hematocrit (Bld) [Volume fraction] 41.5 % 40-54 [facility] Immature granulocytes/100 WB C Auto (Bld)Ordered By: Renard Burgos on 05-22-2023 Immature granulocytes/100 WBC (Bld) 0.600 % 0.0-0.9 [facility] Comment on above: IG% - Immature Granu locytes (promyelocytes, myelocytes and metamyelocytes) > 1% indicates that a LEFT SHIFT is Present. Laboratory - Hematology and Cell countsOrdered By: Renard Burgos on 05-22-2023 MCH (RBC) [Entitic mass] 30.3 pg 27.0-32.0 [facility] MCHC (RBC) [Mass/Vol] 33.0 g/dL 32-36 [facility] Nucleated RBC/100 WBC (Bld) [Ratio] 0 % 0-5 [facility] Platelets (Bld) [#/Vol] 192 10*3/uL 150-450 [facility] Platelet mean volume Adam-Ec ker (Bld) [Entitic vol]Ordered By: Renard Burgos on 05-22-2023 Platelet mean volume (Bld) [Entitic vol] 11.3 fL 6.2-12.0 [facility] RBC Auto (Bld) [#/Vol]Ordere d By: Renard Burgos on 05-22-2023 RBC (Bld) [#/Vol] 4.52 10*6/uL 4.6-6.2 [facility] Absolute lymphocyte countOrd ered By: Renard Burgos on 05-15-2023 Lymphocytes Auto (Unsp spec) [#/Vol] 2.11 10*3/uL 0.83-4.51 [facility] Basophil percentageOrdered B y: Renard Burgos on 05-15-2023 Basophils/100 WBC (Bld) 0.6 % 0-1 [facility] Eosinophils/100 WBC (Bld) 0.8 % 0-5 [facility] Neutrophils (Bld) [#/Vol] 4.9 10*3/uL 2.0-7.7 [facility] Neutrophils/100 WBC (Bld) 62.4 % 47-70 [facility] WBC (Bld) [#/Vol] 7.9 10*3/uL 4.4-11.0 [facility] Blood erythrocytes count (nu mber/volume)Ordered By: Renard Burgos on 05-15-2023 RBC (Bld) [#/Vol] 4.61 10*6/uL 4.6-6.2 [facility] Blood hemoglobin measurement (mass/volume)Ordered By: Renard Burgos on 05-15-2023 Hemoglobin (Bld) [Mass/Vol] 13.9 g/dL 13.0-16.5 [facility] Blood lymphocytes/100 leukoc ytesOrdered By: Renard Burgos on 05-15-2023 Lymphocytes/100 WBC (Bld) 26.7 % 19-41 [facility] Blood monocytes/100 leukocyt esOrdered By: Renard Burgos on 05-15-2023 Monocytes/100 WBC (Bld) 9.1 % 0-10 [facility] Blood platelet mean volumeOr dered By: Renard Burgos on 05-15-2023 Platelet mean volume (Bld) [Entitic vol] 10.7 fL 6.2-12.0 [facility] Determination of erythrocyte mean corpuscular volume (MCV)Ordered By: Renard Burgos on 05-15-2023 MCV (RBC) [Entitic vol] 90.5 fL 80-94 [facility] Hematocrit Auto (Bld) [Volum e fraction]Ordered By: Renard Burgos on 05-15-2023 Hematocrit (Bld) [Volume fraction] 41.7 % 40-54 [facility] Laboratory - Hematology and Cell countsOrdered By: Renard Burgos on 05-15-2023 Erythrocyte distribution width (RBC) [Entitic vol] 42.4 fL 35.1-43.9 [facility] Erythrocyte distribution width (RBC) [Ratio] 12.9 % 11.6-14.6 [facility] Immature granulocytes/100 WBC (Bld) 0.400 % 0.0-0.9 [facility] Comment on above: IG% - Immature Granu locytes (promyelocytes, myelocytes and metamyelocytes) > 1% indicates that a LEFT SHIFT is Present. MCH (RBC) [Entitic mass] 30.2 pg 27.0-32.0 [facility] Nucleated RBC/100 WBC (Bld) [Ratio] 0 % 0-5 [facility] MCHC Auto (RBC) [Mass/Vol]Or dered By: Renard Burgos on 05-15-2023 MCHC (RBC) [Mass/Vol] 33.3 g/dL 32-36 [facility] Platelets bldOrdered By: Lyubov Burgos on 05-15-2023 Platelets (Bld) [#/Vol] 202 10*3/uL 150-450 [facility] Absolute lymphocyte countOrd ered By: Renard Burgos on 05-08-2023 Lymphocytes Auto (Unsp spec) [#/Vol] 2.06 10*3/uL 0.83-4.51 [facility] Basophil percentageOrdered B y: Renard Burgos on 05-08-2023 Basophils/100 WBC (Bld) 0.4 % 0-1 [facility] Eosinophils/100 WBC (Bld) 0.5 % 0-5 [facility] Neutrophils (Bld) [#/Vol] 5.0 10*3/uL 2.0-7.7 [facility] Neutrophils/100 WBC (Bld) 65.7 % 47-70 [facility] WBC (Bld) [#/Vol] 7.5 10*3/uL 4.4-11.0 [facility] Blood erythrocytes count (nu mber/volume)Ordered By: Renard Burgos on 05-08-2023 RBC (Bld) [#/Vol] 4.62 10*6/uL 4.6-6.2 [facility] Blood hemoglobin measurement (mass/volume)Ordered By: Renard Burgos on 05-08-2023 Hemoglobin (Bld) [Mass/Vol] 13.6 g/dL 13.0-16.5 [facility] Blood lymphocytes/100 leukoc ytesOrdered By: Renard Burgos on 05-08-2023 Lymphocytes/100 WBC (Bld) 27.4 % 19-41 [facility] Blood monocytes/100 leukocyt esOrdered By: Renard Burgos on 05-08-2023 Monocytes/100 WBC (Bld) 5.6 % 0-10 [facility] Blood platelet mean volumeOr dered By: Renard Burgos on 05-08-2023 Platelet mean volume (Bld) [Entitic vol] 11.0 fL 6.2-12.0 [facility] Determination of erythrocyte mean corpuscular volume (MCV)Ordered By: Renard Burgos on 05-08-2023 MCV (RBC) [Entitic vol] 91.8 fL 80-94 [facility] Hematocrit Auto (Bld) [Volum e fraction]Ordered By: Renard Burgos on 05-08-2023 Hematocrit (Bld) [Volume fraction] 42.4 % 40-54 [facility] Laboratory - Hematology and Cell countsOrdered By: Renard Burgos on 05-08-2023 Erythrocyte distribution width (RBC) [Entitic vol] 43.1 fL 35.1-43.9 [facility] Erythrocyte distribution width (RBC) [Ratio] 13.0 % 11.6-14.6 [facility] Immature granulocytes/100 WBC (Bld) 0.400 % 0.0-0.9 [facility] Comment on above: IG% - Immature Granu locytes (promyelocytes, myelocytes and metamyelocytes) > 1% indicates that a LEFT SHIFT is Present. MCH (RBC) [Entitic mass] 29.4 pg 27.0-32.0 [facility] Nucleated RBC/100 WBC (Bld) [Ratio] 0 % 0-5 [facility] MCHC Auto (RBC) [Mass/Vol]Or dered By: Renard Burgos on 05-08-2023 MCHC (RBC) [Mass/Vol] 32.1 g/dL 32-36 [facility] Platelets bldOrdered By: Lyubov Burgos on 05-08-2023 Platelets (Bld) [#/Vol] 226 10*3/uL 150-450 [facility] Absolute lymphocyte countOrd ered By: Renard Burgos on 04-17-2023 Lymphocytes Auto (Unsp spec) [#/Vol] 0.92 10*3/uL 0.83-4.51 [facility] Basophil percentageOrdered B y: Renard Burgos on 04-17-2023 Basophils/100 WBC (Bld) 0.1 % 0-1 [facility] Eosinophils/100 WBC (Bld) 0.0 % 0-5 [facility] Neutrophils (Bld) [#/Vol] 6.0 10*3/uL 2.0-7.7 [facility] Neutrophils/100 WBC (Bld) 81.4 % 47-70 [facility] WBC (Bld) [#/Vol] 7.4 10*3/uL 4.4-11.0 [facility] Blood erythrocytes count (nu mber/volume)Ordered By: Renard Burgos on 04-17-2023 RBC (Bld) [#/Vol] 4.59 10*6/uL 4.6-6.2 [facility] Blood hemoglobin measurement (mass/volume)Ordered By: Renard Burgos on 04-17-2023 Hemoglobin (Bld) [Mass/Vol] 13.7 g/dL 13.0-16.5 [facility] Blood lymphocytes/100 leukoc ytesOrdered By: Renard Burgos on 04-17-2023 Lymphocytes/100 WBC (Bld) 12.5 % 19-41 [facility] Blood monocytes/100 leukocyt esOrdered By: Renard Burgos on 04-17-2023 Monocytes/100 WBC (Bld) 5.6 % 0-10 [facility] Blood platelet mean volumeOr dered By: Renard Burgos on 04-17-2023 Platelet mean volume (Bld) [Entitic vol] 10.9 fL 6.2-12.0 [facility] Determination of erythrocyte mean corpuscular volume (MCV)Ordered By: Renard Burgos on 04-17-2023 MCV (RBC) [Entitic vol] 90.8 fL 80-94 [facility] Hematocrit Auto (Bld) [Volum e fraction]Ordered By: Renard Burgos on 04-17-2023 Hematocrit (Bld) [Volume fraction] 41.7 % 40-54 [facility] Laboratory - Hematology and Cell countsOrdered By: Renard Burgos on 04-17-2023 Erythrocyte distribution width (RBC) [Entitic vol] 42.3 fL 35.1-43.9 [facility] Erythrocyte distribution width (RBC) [Ratio] 12.8 % 11.6-14.6 [facility] Immature granulocytes/100 WBC (Bld) 0.400 % 0.0-0.9 [facility] Comment on above: IG% - Immature Granu locytes (promyelocytes, myelocytes and metamyelocytes) > 1% indicates that a LEFT SHIFT is Present. MCH (RBC) [Entitic mass] 29.8 pg 27.0-32.0 [facility] [facility] Nucleated RBC/100 WBC (Bld) [Ratio] 0 % 0-5 [facility] MCHC Auto (RBC) [Mass/Vol]Or dered By: Renard Burgos on 12-18-2023 MCHC (RBC) [Mass/Vol] 32.9 g/dL 32-36 [facility] [place] Platelets bldOrdered By: Lyubov Burgos on 04-17-2023 Platelets (Bld) [#/Vol] 194 10*3/uL 150-450 [facility] Basophil percentageOrdered B y: Renard Burgos on 04-14-2023 Bilirubin [Mass/Vol] 0.30 mg/dL 0.20-1.00 [facility] [place] Comment on above: For patients on eltr ombopag therapy, use of Dimension [place] TBIL is not recommended. Protein [Mass/Vol] 6.2 g/dL 6.4-8.2 [facility] Direct bilirubinOrdered By: Renard Burgos on 04-14-2023 Bilirubin.direct [Mass/Vol] 0.11 mg/dL 0.00-0.30 [facility] Laboratory - Chemistry and C hemistry - challengeOrdered By: Renard Burgos on 04-14-2023 ALP [Catalytic activity/Vol] 139 U/L 45-117 [facility] ALT [Catalytic activity/Vol] 23 U/L 16-61 [facility] Globulin (S) [Mass/Vol] 3.2 g/dL 2.2-4.2 [facility] Serum or plasma albumin gordy urement (mass/volume)Ordered By: Renard Burgos on 04-14-2023 Albumin [Mass/Vol] 3.0 g/dL 3.2-5.0 [facility] Thin prep Papanicolaou smear with manual screeningOrdered By: Renard Burgos on 04-14-2023 Thin prep Papanicolaou smear with manual screening 14 U/L 15-37 [facility] Absolute lymphocyte countOrd ered By: Renard Burgos on 04-10-2023 Lymphocytes Auto (Unsp spec) [#/Vol] 2.54 10*3/uL 0.83-4.51 [facility] Basophil percentageOrdered B y: Renard Burgos on 04-10-2023 Basophils/100 WBC (Bld) 0.5 % 0-1 [facility] Eosinophils/100 WBC (Bld) 0.5 % 0-5 [facility] Neutrophils (Bld) [#/Vol] 5.1 10*3/uL 2.0-7.7 [facility] Neutrophils/100 WBC (Bld) 59.0 % 47-70 [facility] WBC (Bld) [#/Vol] 8.7 10*3/uL 4.4-11.0 [facility] Blood erythrocytes count (nu mber/volume)Ordered By: Renard Burgos on 04-10-2023 RBC (Bld) [#/Vol] 4.84 10*6/uL 4.6-6.2 [facility] Blood hemoglobin measurement (mass/volume)Ordered By: Renard Burgos on 04-10-2023 Hemoglobin (Bld) [Mass/Vol] 14.2 g/dL 13.0-16.5 [facility] Blood lymphocytes/100 leukoc ytesOrdered By: Renard Burgos on 04-10-2023 Lymphocytes/100 WBC (Bld) 29.4 % 19-41 [facility] Blood monocytes/100 leukocyt esOrdered By: Renard Burgos on 04-10-2023 Monocytes/100 WBC (Bld) 10.3 % 0-10 [facility] Blood platelet mean volumeOr dered By: Renard Burgos on 04-10-2023 Platelet mean volume (Bld) [Entitic vol] 11.1 fL 6.2-12.0 [facility] Determination of erythrocyte mean corpuscular volume (MCV)Ordered By: Renard Burgos on 04-10-2023 MCV (RBC) [Entitic vol] 91.5 fL 80-94 [facility] Hematocrit Auto (Bld) [Volum e fraction]Ordered By: Renard Burgos on 04-10-2023 Hematocrit (Bld) [Volume fraction] 44.3 % 40-54 [facility] Laboratory - Hematology and Cell countsOrdered By: Renard Burgos on 04-10-2023 Erythrocyte distribution width (RBC) [Entitic vol] 41.9 fL 35.1-43.9 [facility] Erythrocyte distribution width (RBC) [Ratio] 12.6 % 11.6-14.6 [facility] Immature granulocytes/100 WBC (Bld) 0.300 % 0.0-0.9 [facility] Comment on above: IG% - Immature Granu locytes (promyelocytes, myelocytes and metamyelocytes) > 1% indicates that a LEFT SHIFT is Present. MCH (RBC) [Entitic mass] 29.3 pg 27.0-32.0 [facility] Nucleated RBC/100 WBC (Bld) [Ratio] 0 % 0-5 [facility] MCHC Auto (RBC) [Mass/Vol]Or dered By: Renard Burgos on 04-10-2023 MCHC (RBC) [Mass/Vol] 32.1 g/dL 32-36 [facility] Platelets bldOrdered By: Luybov Burgos on 04-10-2023 Platelets (Bld) [#/Vol] 216 10*3/uL 150-450 [facility] Absolute lymphocyte countOrd ered By: Renard Burgos on 04-03-2023 Lymphocytes Auto (Unsp spec) [#/Vol] 1.91 10*3/uL 0.83-4.51 [facility] Basophil percentageOrdered B y: Renard Burgos on 04-03-2023 Basophils/100 WBC (Bld) 0.5 % 0-1 [facility] Eosinophils/100 WBC (Bld) 0.5 % 0-5 [facility] Neutrophils (Bld) [#/Vol] 5.0 10*3/uL 2.0-7.7 [facility] Neutrophils/100 WBC (Bld) 66.5 % 47-70 [facility] WBC (Bld) [#/Vol] 7.6 10*3/uL 4.4-11.0 [facility] Blood erythrocytes count (nu mber/volume)Ordered By: Renard Burgos on 04-03-2023 RBC (Bld) [#/Vol] 4.62 10*6/uL 4.6-6.2 [facility] Blood hemoglobin measurement (mass/volume)Ordered By: Renard Burgos on 04-03-2023 Hemoglobin (Bld) [Mass/Vol] 13.7 g/dL 13.0-16.5 [facility] Blood lymphocytes/100 leukoc ytesOrdered By: Renard Burgos on 04-03-2023 Lymphocytes/100 WBC (Bld) 25.2 % 19-41 [facility] Blood monocytes/100 leukocyt esOrdered By: Renard Burgos on 04-03-2023 Monocytes/100 WBC (Bld) 6.9 % 0-10 [facility] Blood platelet mean volumeOr dered By: Renard Burgos on 04-03-2023 Platelet mean volume (Bld) [Entitic vol] 10.8 fL 6.2-12.0 [facility] Determination of erythrocyte mean corpuscular volume (MCV)Ordered By: Renard Burgos on 04-03-2023 MCV (RBC) [Entitic vol] 91.6 fL 80-94 [facility] Hematocrit Auto (Bld) [Volum e fraction]Ordered By: Renard Burgos on 04-03-2023 Hematocrit (Bld) [Volume fraction] 42.3 % 40-54 [facility] Laboratory - Hematology and Cell countsOrdered By: Renard Burgos on 04-03-2023 Erythrocyte distribution width (RBC) [Entitic vol] 42.6 fL 35.1-43.9 [facility] Erythrocyte distribution width (RBC) [Ratio] 12.8 % 11.6-14.6 [facility] Immature granulocytes/100 WBC (Bld) 0.400 % 0.0-0.9 [facility] Comment on above: IG% - Immature Granu locytes (promyelocytes, myelocytes and metamyelocytes) > 1% indicates that a LEFT SHIFT is Present. MCH (RBC) [Entitic mass] 29.7 pg 27.0-32.0 [facility] Nucleated RBC/100 WBC (Bld) [Ratio] 0 % 0-5 [facility] MCHC Auto (RBC) [Mass/Vol]Or dered By: Renard Burgos on 04-03-2023 MCHC (RBC) [Mass/Vol] 32.4 g/dL 32-36 [facility] [place] Platelets bldOrdered By: Lyubov Burgos on 04-03-2023 Platelets (Bld) [#/Vol] 216 10*3/uL 150-450 [facility] Absolute lymphocyte countOrd ered By: Renard Burgos on 03-27-2023 Lymphocytes Auto (Unsp spec) [#/Vol] 2.06 10*3/uL 0.83-4.51 [facility] Basophil percentageOrdered B y: Renard Burgos on 03-27-2023 Basophils/100 WBC (Bld) 0.4 % 0-1 [facility] Eosinophils/100 WBC (Bld) 0.2 % 0-5 [facility] Neutrophils (Bld) [#/Vol] 6.3 10*3/uL 2.0-7.7 [facility] Neutrophils/100 WBC (Bld) 68.8 % 47-70 [facility] WBC (Bld) [#/Vol] 9.1 10*3/uL 4.4-11.0 [facility] Blood erythrocytes count (nu mber/volume)Ordered By: Renard Burgos on 03-27-2023 RBC (Bld) [#/Vol] 4.51 10*6/uL 4.6-6.2 [facility] Blood hemoglobin measurement (mass/volume)Ordered By: Renard Burgos on 03-27-2023 Hemoglobin (Bld) [Mass/Vol] 13.2 g/dL 13.0-16.5 [facility] Blood lymphocytes/100 leukoc ytesOrdered By: Renard Burgos on 03-27-2023 Lymphocytes/100 WBC (Bld) 22.6 % 19-41 [facility] Blood monocytes/100 leukocyt esOrdered By: Renard Burgos on 03-27-2023 Monocytes/100 WBC (Bld) 7.3 % 0-10 [facility] Blood platelet mean volumeOr dered By: Renard Burgos on 03-27-2023 Platelet mean volume (Bld) [Entitic vol] 10.8 fL 6.2-12.0 [facility] Determination of erythrocyte mean corpuscular volume (MCV)Ordered By: Renard Burgos on 03-27-2023 MCV (RBC) [Entitic vol] 91.6 fL 80-94 [facility] Hematocrit Auto (Bld) [Volum e fraction]Ordered By: Renard Burgos on 03-27-2023 Hematocrit (Bld) [Volume fraction] 41.3 % 40-54 [facility] Laboratory - Hematology and Cell countsOrdered By: Renard Burgos on 03-27-2023 Erythrocyte distribution width (RBC) [Entitic vol] 42.9 fL 35.1-43.9 [facility] Erythrocyte distribution width (RBC) [Ratio] 12.9 % 11.6-14.6 [facility] Immature granulocytes/100 WBC (Bld) 0.700 % 0.0-0.9 [facility] Comment on above: IG% - Immature Granu locytes (promyelocytes, myelocytes and metamyelocytes) > 1% indicates that a LEFT SHIFT is Present. MCH (RBC) [Entitic mass] 29.3 pg 27.0-32.0 [facility] Nucleated RBC/100 WBC (Bld) [Ratio] 0 % 0-5 [facility] MCHC Auto (RBC) [Mass/Vol]Or dered By: Renard Burgos on 03-27-2023 MCHC (RBC) [Mass/Vol] 32.0 g/dL 32-36 [facility] [place] Platelets bldOrdered By: Lyubov Burgos on 03-27-2023 Platelets (Bld) [#/Vol] 205 10*3/uL 150-450 [facility] Absolute lymphocyte countOrd ered By: Renard Burgos on 03-20-2023 Lymphocytes Auto (Unsp spec) [#/Vol] 1.89 10*3/uL 0.83-4.51 [facility] Basophil percentageOrdered B y: Renard Burgos on 03-20-2023 Basophils/100 WBC (Bld) 0.5 % 0-1 [facility] Chloride [Moles/Vol] 107 mmol/L 98-107 [facility] [place] Eosinophils/100 WBC (Bld) 0.4 % 0-5 [facility] Glucose [Mass/Vol] 124 mg/dL 74-106 [facility] Comment on above: Fasting Glucose resu lt from 100 to 125 mg/dL suggests IMPAIRED HOMEOSTASIS per A.D.A. criteria. Neutrophils (Bld) [#/Vol] 4.8 10*3/uL 2.0-7.7 [facility] Neutrophils/100 WBC (Bld) 64.9 % 47-70 [facility] Potassium [Moles/Vol] 3.6 mmol/L 3.5-5.1 [facility] [place] Sodium [Moles/Vol] 142 mmol/L 136-145 [facility] WBC (Bld) [#/Vol] 7.4 10*3/uL 4.4-11.0 [facility] Blood erythrocytes count (nu mber/volume)Ordered By: Renard Burgos on 03-20-2023 RBC (Bld) [#/Vol] 4.63 10*6/uL 4.6-6.2 [facility] Blood hemoglobin measurement (mass/volume)Ordered By: Renard Burgos on 03-20-2023 Hemoglobin (Bld) [Mass/Vol] 13.7 g/dL 13.0-16.5 [facility] Blood lymphocytes/100 leukoc ytesOrdered By: Renard Burgos on 03-20-2023 Lymphocytes/100 WBC (Bld) 25.7 % 19-41 [facility] Blood monocytes/100 leukocyt esOrdered By: Renard Burgos on 03-20-2023 Monocytes/100 WBC (Bld) 8.2 % 0-10 [facility] Blood platelet mean volumeOr dered By: Renard Burgos on 03-20-2023 Platelet mean volume (Bld) [Entitic vol] 10.7 fL 6.2-12.0 [facility] Determination of erythrocyte mean corpuscular volume (MCV)Ordered By: Renard Burgos on 03-20-2023 MCV (RBC) [Entitic vol] 90.9 fL 80-94 [facility] Hematocrit Auto (Bld) [Volum e fraction]Ordered By: Renard Burgos on 03-20-2023 Hematocrit (Bld) [Volume fraction] 42.1 % 40-54 [facility] Laboratory - Chemistry and C hemistry - challengeOrdered By: Renard Burgos on 03-20-2023 CO2 [Moles/Vol] 29.0 mmol/L 21.0-32.0 [facility] Urea nitrogen/Creatinine [Mass ratio] 30.7 mg/mg 10- [facility] Laboratory - Hematology and Cell countsOrdered By: Renard Burgos on 03-20-2023 Erythrocyte distribution width (RBC) [Entitic vol] 43.0 fL 35.1-43.9 [facility] Erythrocyte distribution width (RBC) [Ratio] 12.9 % 11.6-14.6 [facility] Immature granulocytes/100 WBC (Bld) 0.300 % 0.0-0.9 [facility] Comment on above: IG% - Immature Granu locytes (promyelocytes, myelocytes and metamyelocytes) > 1% indicates that a LEFT SHIFT is Present. MCH (RBC) [Entitic mass] 29.6 pg 27.0-32.0 [facility] Nucleated RBC/100 WBC (Bld) [Ratio] 0 % 0-5 [facility] MCHC Auto (RBC) [Mass/Vol]Or dered By: Renard Burgos on 03-20-2023 MCHC (RBC) [Mass/Vol] 32.5 g/dL 32-36 [facility] [place] No Panel InformationOrdered By: Renard Burgos on 03-20-2023 Estimated GFR (MDRD) Amer 178 mL/min >60 [facility] Comment on above: GFR Calc Estimated GFR (MDRD) Non-Af Amer 147 mL/min >60 [facility] Comment on above: Non- GFR Calc Platelets bldOrdered By: Lyubov Burgos on 03-20-2023 Platelets (Bld) [#/Vol] 208 10*3/uL 150-450 [facility] Serum or plasma calcium gordy urement (mass/volume)Ordered By: Renard Burgos on 03-20-2023 Calcium [Mass/Vol] 8.1 mg/dL 8.5-10.1 [facility] Serum or plasma creatinine m easurement (mass/volume)Ordered By: Renard Burgos on 03-20-2023 Creatinine [Mass/Vol] 0.59 mg/dL 0.70-1.30 [facility] [place] Comment on above: The validity of the calculated GFR & GFRAA in patients over 70 years has not been determined. Clinical correlation is essential. Serum or plasma urea nitroge n measurement (mass/volume)Ordered By: Renard Burgos on 03-20-2023 Urea nitrogen [Mass/Vol] 18 mg/dL 7-18 [facility] Thin prep Papanicolaou smear with manual screeningOrdered By: Renard Burgos on 03-20-2023 Thin prep Papanicolaou smear with manual screening 6 5-15 [facility] Erythrocyte sedimentation ra teOrdered By: Renard Burgos on 03-16-2023 ESR (Bld) [Velocity] 3 mm/h 0-20 [facility] [place] Absolute lymphocyte countOrd ered By: Renard Burgos on 03-13-2023 Lymphocytes Auto (Unsp spec) [#/Vol] 2.36 10*3/uL 0.83-4.51 [facility] Basophil percentageOrdered B y: Renard Burgos on 03-13-2023 Basophils/100 WBC (Bld) 0.5 % 0-1 [facility] Eosinophils/100 WBC (Bld) 0.5 % 0-5 [facility] Neutrophils (Bld) [#/Vol] 5.2 10*3/uL 2.0-7.7 [facility] Neutrophils/100 WBC (Bld) 61.3 % 47-70 [facility] WBC (Bld) [#/Vol] 8.5 10*3/uL 4.4-11.0 [facility] Blood erythrocytes count (nu mber/volume)Ordered By: Renard Burgos on 03-13-2023 RBC (Bld) [#/Vol] 4.55 10*6/uL 4.6-6.2 [facility] Blood hemoglobin measurement (mass/volume)Ordered By: Renard Burgos on 03-13-2023 Hemoglobin (Bld) [Mass/Vol] 13.4 g/dL 13.0-16.5 [facility] Blood lymphocytes/100 leukoc ytesOrdered By: Renard Burgos on 03-13-2023 Lymphocytes/100 WBC (Bld) 27.7 % 19-41 [facility] Blood monocytes/100 leukocyt esOrdered By: Renard Burgos on 03-13-2023 Monocytes/100 WBC (Bld) 9.5 % 0-10 [facility] Blood platelet mean volumeOr dered By: Renard Burgos on 03-13-2023 Platelet mean volume (Bld) [Entitic vol] 10.6 fL 6.2-12.0 [facility] Determination of erythrocyte mean corpuscular volume (MCV)Ordered By: Renard Burgos on 03-13-2023 MCV (RBC) [Entitic vol] 93.4 fL 80-94 [facility] Hematocrit Auto (Bld) [Volum e fraction]Ordered By: Renard Burgos on 03-13-2023 Hematocrit (Bld) [Volume fraction] 42.5 % 40-54 [facility] Laboratory - Hematology and Cell countsOrdered By: Renard Burgos on 03-13-2023 Erythrocyte distribution width (RBC) [Entitic vol] 44.1 fL 35.1-43.9 [facility] Erythrocyte distribution width (RBC) [Ratio] 13.0 % 11.6-14.6 [facility] Immature granulocytes/100 WBC (Bld) 0.500 % 0.0-0.9 [facility] Comment on above: IG% - Immature Granu locytes (promyelocytes, myelocytes and metamyelocytes) > 1% indicates that a LEFT SHIFT is Present. MCH (RBC) [Entitic mass] 29.5 pg 27.0-32.0 [facility] Nucleated RBC/100 WBC (Bld) [Ratio] 0 % 0-5 [facility] MCHC Auto (RBC) [Mass/Vol]Or dered By: Renard Burgos on 03-13-2023 MCHC (RBC) [Mass/Vol] 31.5 g/dL 32-36 [facility] [place] Platelets bldOrdered By: Lyubov Burgos on 03-13-2023 Platelets (Bld) [#/Vol] 200 10*3/uL 150-450 [facility] Absolute lymphocyte countOrd ered By: Renard Burgos on 03-06-2023 Lymphocytes Auto (Unsp spec) [#/Vol] 1.80 10*3/uL 0.83-4.51 [facility] Basophil percentageOrdered B y: Renard Burgos on 03-06-2023 Basophils/100 WBC (Bld) 0.5 % 0-1 [facility] Bilirubin [Mass/Vol] 0.40 mg/dL 0.20-1.00 [facility] [place] Comment on above: For patients on eltr ombopag therapy, use of Dimension [place] TBIL is not recommended. Chloride [Moles/Vol] 107 mmol/L 98-107 [facility] [place] Cholesterol [Mass/Vol] 118 mg/dL <200 [facility] Comment on above: <200 mg/dL Desirable 200-240 mg/dL Borderline >240 mg/dL High Risk Eosinophils/100 WBC (Bld) 0.5 % 0-5 [facility] Glucose [Mass/Vol] 107 mg/dL 74-106 [facility] Comment on above: Fasting Glucose resu lt from 100 to 125 mg/dL suggests IMPAIRED HOMEOSTASIS per A.D.A. criteria. Neutrophils (Bld) [#/Vol] 5.5 10*3/uL 2.0-7.7 [facility] Neutrophils/100 WBC (Bld) 68.0 % 47-70 [facility] Potassium [Moles/Vol] 3.8 mmol/L 3.5-5.1 [facility] [place] Protein [Mass/Vol] 6.3 g/dL 6.4-8.2 [facility] Sodium [Moles/Vol] 141 mmol/L 136-145 [facility] Triglyceride [Mass/Vol] 185 mg/dL <199 [facility] Comment on above: The drugs N-Acetylcy steine and Metamizole may falsely depress this assay.Serum Triglycerides Reference Interval Normal <150 mg/dL Borderline high 150 - 199 mg/dL High 200 - 499 mg/dL Very High > or = 500 mg/dL WBC (Bld) [#/Vol] 8.1 10*3/uL 4.4-11.0 [facility] Blood erythrocytes count (nu mber/volume)Ordered By: Renard Burgos on 03-06-2023 RBC (Bld) [#/Vol] 4.69 10*6/uL 4.6-6.2 [facility] Blood hemoglobin measurement (mass/volume)Ordered By: Renard Burgos on 03-06-2023 Hemoglobin (Bld) [Mass/Vol] 14.0 g/dL 13.0-16.5 [facility] Blood lymphocytes/100 leukoc ytesOrdered By: Renard Burgos on 03-06-2023 Lymphocytes/100 WBC (Bld) 22.3 % 19-41 [facility] Blood monocytes/100 leukocyt esOrdered By: Renard Burgos on 03-06-2023 Monocytes/100 WBC (Bld) 8.2 % 0-10 [facility] Blood platelet mean volumeOr dered By: Renard Burgos on 03-06-2023 Platelet mean volume (Bld) [Entitic vol] 10.9 fL 6.2-12.0 [facility] Determination of erythrocyte mean corpuscular volume (MCV)Ordered By: Renard Burgos on 03-06-2023 MCV (RBC) [Entitic vol] 91.9 fL 80-94 [facility] Hematocrit Auto (Bld) [Volum e fraction]Ordered By: Renard Burgos on 03-06-2023 Hematocrit (Bld) [Volume fraction] 43.1 % 40-54 [facility] Laboratory - Chemistry and C hemistry - challengeOrdered By: Renard Burgos on 03-06-2023 ALP [Catalytic activity/Vol] 120 U/L 45-117 [facility] ALT [Catalytic activity/Vol] 20 U/L 16-61 [facility] CO2 [Moles/Vol] 30.0 mmol/L 21.0-32.0 [facility] Globulin (S) [Mass/Vol] 3.3 g/dL 2.2-4.2 [facility] Urea nitrogen/Creatinine [Mass ratio] 27.1 mg/mg 10-20 [facility] Laboratory - Hematology and Cell countsOrdered By: Renard Burgos on 03-06-2023 Erythrocyte distribution width (RBC) [Entitic vol] 42.5 fL 35.1-43.9 [facility] Erythrocyte distribution width (RBC) [Ratio] 12.9 % 11.6-14.6 [facility] Immature granulocytes/100 WBC (Bld) 0.500 % 0.0-0.9 [facility] Comment on above: IG% - Immature Granu locytes (promyelocytes, myelocytes and metamyelocytes) > 1% indicates that a LEFT SHIFT is Present. MCH (RBC) [Entitic mass] 29.9 pg 27.0-32.0 [facility] Nucleated RBC/100 WBC (Bld) [Ratio] 0 % 0-5 [facility] MCHC Auto (RBC) [Mass/Vol]Or dered By: Renard Burgos on 03-06-2023 MCHC (RBC) [Mass/Vol] 32.5 g/dL 32-36 [facility] [place] No Panel InformationOrdered By: Renard Burgos on 03-06-2023 Estimated GFR (MDRD) Amer 165 mL/min >60 [facility] Comment on above: GFR Calc Estimated GFR (MDRD) Non-Af Amer 136 mL/min >60 [facility] Comment on above: Non- GFR Calc Platelets bldOrdered By: Lyubov Burgos on 03-06-2023 Platelets (Bld) [#/Vol] 232 10*3/uL 150-450 [facility] Serum or plasma albumin gordy urement (mass/volume)Ordered By: Renard Burgos on 03-06-2023 Albumin [Mass/Vol] 3.0 g/dL 3.2-5.0 [facility] Serum or plasma albumin/glob ulin mass ratioOrdered By: Renard Burgos on 03-06-2023 Albumin/Globulin [Mass ratio] 0.9 {ratio} 0.9-2.4 [facility] Serum or plasma calcium gordy urement (mass/volume)Ordered By: Renard Burgos on 03-06-2023 Calcium [Mass/Vol] 8.2 mg/dL 8.5-10.1 [facility] Serum or plasma cholesterol in HDL measurement (mass/volume)Ordered By: Renard Burgos on 03-06-2023 Cholesterol in HDL [Mass/Vol] 25 mg/dL >40 [facility] Comment on above: The drugs N-Acetylcy steine and Metamizole may falsely depress this assay. Reference Range HDL <40 mg/dL Low HDL Cholesterol HDL >or= 60 mg/dL High HDL Cholesterol Serum or plasma cholesterol in VLDL measurement (mass/volume)Ordered By: Renard Burgos on 03-06-2023 Cholesterol in VLDL [Mass/Vol] 37 mg/dL 5-40 [facility] Serum or plasma creatinine m easurement (mass/volume)Ordered By: Renard Burgos on 03-06-2023 Creatinine [Mass/Vol] 0.63 mg/dL 0.70-1.30 [facility] [place] Comment on above: The validity of the calculated GFR & GFRAA in patients over 70 years has not been determined. Clinical correlation is essential. Serum or plasma low density lipoprotein (LDL) cholesterol measurement (mass/volume)Ordered By: Renard Burgos on 03-06-2023 Cholesterol in LDL [Mass/Vol] 56 mg/dL 0-130 [facility] Serum or plasma urea nitroge n measurement (mass/volume)Ordered By: Renard Burgos on 03-06-2023 Urea nitrogen [Mass/Vol] 17 mg/dL 7-18 [facility] Thin prep Papanicolaou smear with manual screeningOrdered By: Renard Burgos on 03-06-2023 Thin prep Papanicolaou smear with manual screening 10 U/L 15-37 [facility] Thin prep Papanicolaou smear with manual screening 4 5-15 [facility] Absolute lymphocyte countOrd ered By: Renard Burgos on 02-27-2023 Lymphocytes Auto (Unsp spec) [#/Vol] 2.13 10*3/uL 0.83-4.51 [facility] Basophil percentageOrdered B y: Renard Burgos on 02-27-2023 Basophils/100 WBC (Bld) 0.6 % 0-1 [facility] Eosinophils/100 WBC (Bld) 0.6 % 0-5 [facility] Neutrophils (Bld) [#/Vol] 5.1 10*3/uL 2.0-7.7 [facility] Neutrophils/100 WBC (Bld) 63.3 % 47-70 [facility] WBC (Bld) [#/Vol] 8.1 10*3/uL 4.4-11.0 [facility] Blood erythrocytes count (nu mber/volume)Ordered By: Renard Burgos on 02-27-2023 RBC (Bld) [#/Vol] 4.54 10*6/uL 4.6-6.2 [facility] Blood hemoglobin measurement (mass/volume)Ordered By: Renard Burgos on 02-27-2023 Hemoglobin (Bld) [Mass/Vol] 13.7 g/dL 13.0-16.5 [facility] Blood lymphocytes/100 leukoc ytesOrdered By: Renard Burgos on 02-27-2023 Lymphocytes/100 WBC (Bld) 26.4 % 19-41 [facility] Blood monocytes/100 leukocyt esOrdered By: Renard Burgos on 02-27-2023 Monocytes/100 WBC (Bld) 8.7 % 0-10 [facility] Blood platelet mean volumeOr dered By: Renard Burgos on 02-27-2023 Platelet mean volume (Bld) [Entitic vol] 10.8 fL 6.2-12.0 [facility] Determination of erythrocyte mean corpuscular volume (MCV)Ordered By: Renard Burgos on 02-27-2023 MCV (RBC) [Entitic vol] 89.9 fL 80-94 [facility] Hematocrit Auto (Bld) [Volum e fraction]Ordered By: Renard Burgos on 02-27-2023 Hematocrit (Bld) [Volume fraction] 40.8 % 40-54 [facility] Laboratory - Hematology and Cell countsOrdered By: Renard Burgos on 02-27-2023 Erythrocyte distribution width (RBC) [Entitic vol] 41.0 fL 35.1-43.9 [facility] Erythrocyte distribution width (RBC) [Ratio] 12.5 % 11.6-14.6 [facility] Immature granulocytes/100 WBC (Bld) 0.400 % 0.0-0.9 [facility] Comment on above: IG% - Immature Granu locytes (promyelocytes, myelocytes and metamyelocytes) > 1% indicates that a LEFT SHIFT is Present. MCH (RBC) [Entitic mass] 30.2 pg 27.0-32.0 [facility] Nucleated RBC/100 WBC (Bld) [Ratio] 0 % 0-5 [facility] MCHC Auto (RBC) [Mass/Vol]Or dered By: Renard Burgos on 02-27-2023 MCHC (RBC) [Mass/Vol] 33.6 g/dL 32-36 [facility] Platelets bldOrdered By: Lyubov Burgos on 02-27-2023 Platelets (Bld) [#/Vol] 182 10*3/uL 150-450 [facility] Absolute lymphocyte countOrd ered By: Renard Burgos on 02-20-2023 Lymphocytes Auto (Unsp spec) [#/Vol] 2.23 10*3/uL 0.83-4.51 [facility] Basophil percentageOrdered B y: Renard Burgos on 02-20-2023 Basophils/100 WBC (Bld) 0.3 % 0-1 [facility] Eosinophils/100 WBC (Bld) 0.7 % 0-5 [facility] Neutrophils (Bld) [#/Vol] 5.9 10*3/uL 2.0-7.7 [facility] Neutrophils/100 WBC (Bld) 65.7 % 47-70 [facility] WBC (Bld) [#/Vol] 9.0 10*3/uL 4.4-11.0 [facility] Blood erythrocytes count (nu mber/volume)Ordered By: Renard Burgos on 02-20-2023 RBC (Bld) [#/Vol] 4.46 10*6/uL 4.6-6.2 [facility] Blood hemoglobin measurement (mass/volume)Ordered By: Renard Burgos on 02-20-2023 Hemoglobin (Bld) [Mass/Vol] 13.3 g/dL 13.0-16.5 [facility] Blood lymphocytes/100 leukoc ytesOrdered By: Renard Burgos on 02-20-2023 Lymphocytes/100 WBC (Bld) 24.7 % 19-41 [facility] Blood monocytes/100 leukocyt esOrdered By: Renard Burgos on 02-20-2023 Monocytes/100 WBC (Bld) 8.0 % 0-10 [facility] Blood platelet mean volumeOr dered By: Renard Burgos on 02-20-2023 Platelet mean volume (Bld) [Entitic vol] 10.7 fL 6.2-12.0 [facility] Determination of erythrocyte mean corpuscular volume (MCV)Ordered By: Renard Burgos on 02-20-2023 MCV (RBC) [Entitic vol] 90.6 fL 80-94 [facility] Hematocrit Auto (Bld) [Volum e fraction]Ordered By: Renard Burgos on 02-20-2023 Hematocrit (Bld) [Volume fraction] 40.4 % 40-54 [facility] - Hematology and Cell countsOrdered By: Renard Burgos on 02-20-2023 Erythrocyte distribution width (RBC) [Entitic vol] 41.9 fL 35.1-43.9 [facility] Erythrocyte distribution width (RBC) [Ratio] 12.8 % 11.6-14.6 [facility] Immature granulocytes/100 WBC (Bld) 0.600 % 0.0-0.9 [facility] Comment on above: IG% - Immature Granu locytes (promyelocytes, myelocytes and metamyelocytes) > 1% indicates that a LEFT SHIFT is Present. MCH (RBC) [Entitic mass] 29.8 pg 27.0-32.0 [facility] Nucleated RBC/100 WBC (Bld) [Ratio] 0 % 0-5 [facility] MCHC Auto (RBC) [Mass/Vol]Or dered By: Renard Burgos on 02-20-2023 MCHC (RBC) [Mass/Vol] 32.9 g/dL 32-36 [facility] Platelets bldOrdered By: Lyubov Burgos on 02-20-2023 Platelets (Bld) [#/Vol] 220 10*3/uL 150-450 [facility] Absolute lymphocyte countOrd ered By: Renard Burgos on 02-13-2023 Lymphocytes Auto (Unsp spec) [#/Vol] 2.01 10*3/uL 0.83-4.51 [facility] Basophil percentageOrdered B y: Renard Burgos on 02-13-2023 Basophils/100 WBC (Bld) 0.7 % 0-1 [facility] Eosinophils/100 WBC (Bld) 0.5 % 0-5 [facility] Neutrophils (Bld) [#/Vol] 4.7 10*3/uL 2.0-7.7 [facility] Neutrophils/100 WBC (Bld) 63.3 % 47-70 [facility] WBC (Bld) [#/Vol] 7.4 10*3/uL 4.4-11.0 [facility] Blood erythrocytes count (nu mber/volume)Ordered By: Renard Burgos on 02-13-2023 RBC (Bld) [#/Vol] 4.46 10*6/uL 4.6-6.2 [facility] Blood hemoglobin measurement (mass/volume)Ordered By: Renard Burgos on 02-13-2023 Hemoglobin (Bld) [Mass/Vol] 13.6 g/dL 13.0-16.5 [facility] Blood lymphocytes/100 leukoc ytesOrdered By: Renard Burgos on 02-13-2023 Lymphocytes/100 WBC (Bld) 27.0 % 19-41 [facility] Blood monocytes/100 leukocyt esOrdered By: Renard Burgos on 02-13-2023 Monocytes/100 WBC (Bld) 8.1 % 0-10 [facility] Blood platelet mean volumeOr dered By: Renard Burgos on 02-13-2023 Platelet mean volume (Bld) [Entitic vol] 10.7 fL 6.2-12.0 [facility] Determination of erythrocyte mean corpuscular volume (MCV)Ordered By: Renard Burgos on 02-13-2023 MCV (RBC) [Entitic vol] 92.6 fL 80-94 [facility] Hematocrit Auto (Bld) [Volum e fraction]Ordered By: Renard Burgos on 02-13-2023 Hematocrit (Bld) [Volume fraction] 41.3 % 40-54 [facility] - Hematology and Cell countsOrdered By: Renard Burgos on 02-13-2023 Erythrocyte distribution width (RBC) [Entitic vol] 42.7 fL 35.1-43.9 [facility] Erythrocyte distribution width (RBC) [Ratio] 12.6 % 11.6-14.6 [facility] Immature granulocytes/100 WBC (Bld) 0.400 % 0.0-0.9 [facility] Comment on above: IG% - Immature Granu locytes (promyelocytes, myelocytes and metamyelocytes) > 1% indicates that a LEFT SHIFT is Present. MCH (RBC) [Entitic mass] 30.5 pg 27.0-32.0 [facility] Nucleated RBC/100 WBC (Bld) [Ratio] 0 % 0-5 [facility] MCHC Auto (RBC) [Mass/Vol]Or dered By: Renard Burgos on 02-13-2023 MCHC (RBC) [Mass/Vol] 32.9 g/dL 32-36 [facility] Platelets bldOrdered By: Lyubov Burgos on 02-13-2023 Platelets (Bld) [#/Vol] 187 10*3/uL 150-450 [facility] Absolute lymphocyte countOrd ered By: Renard Burgos on 02-06-2023 Lymphocytes Auto (Unsp spec) [#/Vol] 2.28 10*3/uL 0.83-4.51 [facility] Basophil percentageOrdered B y: Renard Burgos on 02-06-2023 Basophils/100 WBC (Bld) 0.5 % 0-1 [facility] Eosinophils/100 WBC (Bld) 0.7 % 0-5 [facility] Neutrophils (Bld) [#/Vol] 5.5 10*3/uL 2.0-7.7 [facility] Neutrophils/100 WBC (Bld) 63.7 % 47-70 [facility] WBC (Bld) [#/Vol] 8.6 10*3/uL 4.4-11.0 [facility] Blood erythrocytes count (nu mber/volume)Ordered By: Renard Burgos on 02-06-2023 RBC (Bld) [#/Vol] 4.71 10*6/uL 4.6-6.2 [facility] Blood hemoglobin measurement (mass/volume)Ordered By: Renard Burgos on 02-06-2023 Hemoglobin (Bld) [Mass/Vol] 14.1 g/dL 13.0-16.5 [facility] Blood lymphocytes/100 leukoc ytesOrdered By: Renard Burgos on 02-06-2023 Lymphocytes/100 WBC (Bld) 26.4 % 19-41 [facility] Blood monocytes/100 leukocyt esOrdered By: Renard Burgos on 02-06-2023 Monocytes/100 WBC (Bld) 8.2 % 0-10 [facility] Blood platelet mean volumeOr dered By: Renard Burgos on 02-06-2023 Platelet mean volume (Bld) [Entitic vol] 11.0 fL 6.2-12.0 [facility] Determination of erythrocyte mean corpuscular volume (MCV)Ordered By: Renard Burgos on 02-06-2023 MCV (RBC) [Entitic vol] 94.5 fL 80-94 [facility] Hematocrit Auto (Bld) [Volum e fraction]Ordered By: Renard Burgos on 02-06-2023 Hematocrit (Bld) [Volume fraction] 44.5 % 40-54 [facility] - Hematology and Cell countsOrdered By: Renard Burgos on 02-06-2023 Erythrocyte distribution width (RBC) [Entitic vol] 43.5 fL 35.1-43.9 [facility] Erythrocyte distribution width (RBC) [Ratio] 12.7 % 11.6-14.6 [facility] Immature granulocytes/100 WBC (Bld) 0.500 % 0.0-0.9 [facility] Comment on above: IG% - Immature Granu locytes (promyelocytes, myelocytes and metamyelocytes) > 1% indicates that a LEFT SHIFT is Present. MCH (RBC) [Entitic mass] 29.9 pg 27.0-32.0 [facility] Nucleated RBC/100 WBC (Bld) [Ratio] 0 % 0-5 [facility] MCHC Auto (RBC) [Mass/Vol]Or dered By: Renard Burgos on 02-06-2023 MCHC (RBC) [Mass/Vol] 31.7 g/dL 32-36 [facility] Platelets bldOrdered By: Lyubov Burgos on 02-06-2023 Platelets (Bld) [#/Vol] 196 10*3/uL 150-450 [facility] Absolute lymphocyte countOrd ered By: Renard Burgos on 01-30-2023 Lymphocytes Auto (Unsp spec) [#/Vol] 1.91 10*3/uL 0.83-4.51 [facility] Basophil percentageOrdered B y: Renard Burgos on 01-30-2023 Basophils/100 WBC (Bld) 0.5 % 0-1 [facility] Eosinophils/100 WBC (Bld) 0.5 % 0-5 [facility] Neutrophils (Bld) [#/Vol] 6.0 10*3/uL 2.0-7.7 [facility] Neutrophils/100 WBC (Bld) 69.4 % 47-70 [facility] WBC (Bld) [#/Vol] 8.7 10*3/uL 4.4-11.0 [facility] Basophil percentage 0 SEEN /hpf 0-5 [facility] [place] Bilirubin Test strip Ql (U)O rdered By: Renard Burgos on 01-30-2023 Bilirubin Ql (U) Negative Negative [facility] Blood erythrocytes count (nu mber/volume)Ordered By: Renard Burgos on 01-30-2023 RBC (Bld) [#/Vol] 4.50 10*6/uL 4.6-6.2 [facility] Blood hemoglobin measurement (mass/volume)Ordered By: Renard Burgos on 01-30-2023 Hemoglobin (Bld) [Mass/Vol] 13.5 g/dL 13.0-16.5 [facility] Blood lymphocytes/100 leukoc ytesOrdered By: Renard Burgos on 01-30-2023 Lymphocytes/100 WBC (Bld) 22.1 % 19-41 [facility] Blood monocytes/100 leukocyt esOrdered By: Renard Burgos on 01-30-2023 Monocytes/100 WBC (Bld) 7.2 % 0-10 [facility] Blood platelet mean volumeOr dered By: Renard Burgos on 01-30-2023 Platelet mean volume (Bld) [Entitic vol] 11.1 fL 6.2-12.0 [facility] Culture, urineOrdered By: Garrick Bhatt on 01-30-2023 Bacteria identified Cx Nom (U) Positive [facility] Determination of erythrocyte mean corpuscular volume (MCV)Ordered By: Renard Burgos on 01-30-2023 MCV (RBC) [Entitic vol] 91.3 fL 80-94 [facility] Hematocrit Auto (Bld) [Volum e fraction]Ordered By: Renard Burgos on 01-30-2023 Hematocrit (Bld) [Volume fraction] 41.1 % 40-54 [facility] Ketones Test strip Ql (U)Ord ered By: Renard Burgos on 01-30-2023 Ketones Ql (U) Negative Negative [facility] - Hematology and Cell countsOrdered By: Renard Burgos on 01-30-2023 Erythrocyte distribution width (RBC) [Entitic vol] 41.4 fL 35.1-43.9 [facility] Erythrocyte distribution width (RBC) [Ratio] 12.6 % 11.6-14.6 [facility] Immature granulocytes/100 WBC (Bld) 0.300 % 0.0-0.9 [facility] Comment on above: IG% - Immature Granu locytes (promyelocytes, myelocytes and metamyelocytes) > 1% indicates that a LEFT SHIFT is Present. MCH (RBC) [Entitic mass] 30.0 pg 27.0-32.0 [facility] Nucleated RBC/100 WBC (Bld) [Ratio] 0 % 0-[facility] ([facility]BC) [Mass/Vol]Or dered By: Renard Burgos on 01-30-2023 MCHC (RBC) [Mass/Vol] 32.8 g/dL 32-36 [facility] Mucus LM Ql (Urine sed)Order ed By: Renard Burgos on 01-30-2023 Mucus Ql (Urine sed) 0 SEEN /hpf [facility] Nitrite Test strip Ql (U)Ord ered By: Renard Burgos on 01-30-2023 Nitrite Ql (U) Negative Negative [facility] No Panel InformationOrdered By: Renard Burgos on 01-30-2023 Prostate Specific Antigen Screen 4.18 ng/mL 0.00-4.00 [facility] Comment on above: This test was perfor med using the TPSA assay method for the[employer] chemistry system. Values obtained with differentassay methods cannot be used interchangably.When changing PSA assays in the course of monitoring apatient, additional sequential testing should be carriedout to confirm baseline values. Platelets bldOrdered By: Lyubov Burgos on 01-30-2023 Platelets (Bld) [#/Vol] 205 10*3/uL 150-450 [facility] Protein Test strip Ql (U)Ord ered By: Renard Burgos on 01-30-2023 Protein Ql (U) Negative Negative [facility] Squamous epithelial cells de tection in urine sediment by light microscopyOrdered By: Renard Burgos on 01-30-2023 Epithelial cells.squamous LM Ql (Urine sed) 0-5 SEEN /hpf 0-5 [facility] Urine blood detectionOrdered By: Renard Burgos on 01-30-2023 RBC Ql (U) Negative Negative [facility] RBC Ql (U) 0 SEEN /hpf 0-5 [facility] Urine clarityOrdered By: Lyubov Burogs on 01-30-2023 Clarity (U) Clear Clear [facility] Urine color determinationOrd ered By: Renard Burgos on 01-30-2023 Color (U) Yellow Yellow [facility] Urine glucose detectionOrder ed By: Renard Burgos on 01-30-2023 Glucose Ql (U) Normal mg/dl Normal [facility] Urine leukocyte esterase det ection by dipstickOrdered By: Renard Burgos on 01-30-2023 Leukocyte esterase Test strip Ql (U) Negative Negative [facility] Urine pHOrdered By: Renard ocampo on 01-30-2023 pH (U) 8.0 [pH] 5.0 - 8.0 [facility] Urine sediment bacteria coun t by microscopy (number/high power field)Ordered By: Renard Burgos on 01-30-2023 Bacteria LM.HPF (Urine sed) [#/Area] 0 /[HPF] None Seen [facility] Urine specific gravity measu rementOrdered By: Renard Burgos on 01-30-2023 Specific gravity (U) [Rel density] 1.010 1.002-1.030 [facility] Urobilinogen Auto test strip Ql (U)Ordered By: Renard Burgos on 01-30-2023 Urobilinogen Ql (U) Normal mg/dl Normal [facility] Absolute lymphocyte countOrd ered By: Renard Burgos on 01-23-2023 Lymphocytes Auto (Unsp spec) [#/Vol] 2.32 10*3/uL 0.83-4.51 [facility] Basophil percentageOrdered B y: Renard Burgos on 01-23-2023 Basophils/100 WBC (Bld) 0.6 % 0-1 [facility] Eosinophils/100 WBC (Bld) 0.4 % 0-5 [facility] Neutrophils (Bld) [#/Vol] 5.3 10*3/uL 2.0-7.7 [facility] Neutrophils/100 WBC (Bld) 62.7 % 47-70 [facility] WBC (Bld) [#/Vol] 8.4 10*3/uL 4.4-11.0 [facility] Blood erythrocytes count (nu mber/volume)Ordered By: eRnard Burgos on 01-23-2023 RBC (Bld) [#/Vol] 4.49 10*6/uL 4.6-6.2 [facility] Blood hemoglobin measurement (mass/volume)Ordered By: Renard Burgos on 01-23-2023 Hemoglobin (Bld) [Mass/Vol] 13.6 g/dL 13.0-16.5 [facility] Blood lymphocytes/100 leukoc ytesOrdered By: Renard Burgos on 01-23-2023 Lymphocytes/100 WBC (Bld) 27.5 % 19-41 [facility] Blood monocytes/100 leukocyt esOrdered By: Renard Burgos on 01-23-2023 Monocytes/100 WBC (Bld) 8.2 % 0-10 [facility] Blood platelet mean volumeOr dered By: Renard Burgos on 01-23-2023 Platelet mean volume (Bld) [Entitic vol] 10.9 fL 6.2-12.0 [facility] Determination of erythrocyte mean corpuscular volume (MCV)Ordered By: Renard Burgos on 01-23-2023 MCV (RBC) [Entitic vol] 93.1 fL 80-94 [facility] Hematocrit Auto (Bld) [Volum e fraction]Ordered By: Renard Burgos on 01-23-2023 Hematocrit (Bld) [Volume fraction] 41.8 % 40-54 [facility] - Hematology and Cell countsOrdered By: Renard Burgos on 01-23-2023 Erythrocyte distribution width (RBC) [Entitic vol] 42.7 fL 35.1-43.9 [facility] Erythrocyte distribution width (RBC) [Ratio] 12.6 % 11.6-14.6 [facility] Immature granulocytes/100 WBC (Bld) 0.600 % 0.0-0.9 [facility] Comment on above: IG% - Immature Granu locytes (promyelocytes, myelocytes and metamyelocytes) > 1% indicates that a LEFT SHIFT is Present. MCH (RBC) [Entitic mass] 30.3 pg 27.0-32.0 [facility] Nucleated RBC/100 WBC (Bld) [Ratio] 0 % 0-5 [facility] MCHC Auto (RBC) [Mass/Vol]Or dered By: Renard Burgos on 01-23-2023 MCHC (RBC) [Mass/Vol] 32.5 g/dL 32-36 [facility] Platelets bldOrdered By: Lyubov Burgos on 01-23-2023 Platelets (Bld) [#/Vol] 220 10*3/uL 150-450 [facility] Absolute lymphocyte countOrd ered By: Renard Burgos on 01-16-2023 Lymphocytes Auto (Unsp spec) [#/Vol] 1.80 10*3/uL 0.83-4.51 [facility] Basophil percentageOrdered B y: Renard Burgos on 01-16-2023 Basophils/100 WBC (Bld) 0.4 % 0-1 [facility] Eosinophils/100 WBC (Bld) 0.4 % 0-5 [facility] Neutrophils (Bld) [#/Vol] 7.2 10*3/uL 2.0-7.7 [facility] Neutrophils/100 WBC (Bld) 73.5 % 47-70 [facility] WBC (Bld) [#/Vol] 9.8 10*3/uL 4.4-11.0 [facility] Blood erythrocytes count (nu mber/volume)Ordered By: Renard Burgos on 01-16-2023 RBC (Bld) [#/Vol] 4.77 10*6/uL 4.6-6.2 [facility] Blood hemoglobin measurement (mass/volume)Ordered By: Renard Burgos on 01-16-2023 Hemoglobin (Bld) [Mass/Vol] 14.1 g/dL 13.0-16.5 [facility] Blood lymphocytes/100 leukoc ytesOrdered By: Renard Burgos on 01-16-2023 Lymphocytes/100 WBC (Bld) 18.4 % 19-41 [facility] Blood monocytes/100 leukocyt esOrdered By: Renard Burgos on 01-16-2023 Monocytes/100 WBC (Bld) 6.9 % 0-10 [facility] Blood platelet mean volumeOr dered By: Renard Burgos on 01-16-2023 Platelet mean volume (Bld) [Entitic vol] 10.6 fL 6.2-12.0 [facility] Determination of erythrocyte mean corpuscular volume (MCV)Ordered By: Renard Burgos on 01-16-2023 MCV (RBC) [Entitic vol] 92.5 fL 80-94 [facility] Hematocrit Auto (Bld) [Volum e fraction]Ordered By: Renard Burgos on 01-16-2023 Hematocrit (Bld) [Volume fraction] 44.1 % 40-54 [facility] - Hematology and Cell countsOrdered By: Renard Burgos on 01-16-2023 Erythrocyte distribution width (RBC) [Entitic vol] 41.8 fL 35.1-43.9 [facility] Erythrocyte distribution width (RBC) [Ratio] 12.4 % 11.6-14.6 [facility] Immature granulocytes/100 WBC (Bld) 0.400 % 0.0-0.9 [facility] Comment on above: IG% - Immature Granu locytes (promyelocytes, myelocytes and metamyelocytes) > 1% indicates that a LEFT SHIFT is Present. MCH (RBC) [Entitic mass] 29.6 pg 27.0-32.0 [facility] Nucleated RBC/100 WBC (Bld) [Ratio] 0 % 0-5 [facility] MCHC Auto (RBC) [Mass/Vol]Or dered By: Renard Burgos on 01-16-2023 MCHC (RBC) [Mass/Vol] 32.0 g/dL 32-36 [facility] Platelets bldOrdered By: Lyubov Burgos on 01-16-2023 Platelets (Bld) [#/Vol] 221 10*3/uL 150-450 [facility] Absolute lymphocyte countOrd ered By: Renard Burgos on 01-09-2023 Lymphocytes Auto (Unsp spec) [#/Vol] 2.41 10*3/uL 0.83-4.51 [facility] Basophil percentageOrdered B y: Renard Burgos on 01-09-2023 Basophils/100 WBC (Bld) 0.7 % 0-1 [facility] Eosinophils/100 WBC (Bld) 0.8 % 0-5 [facility] Neutrophils (Bld) [#/Vol] 5.4 10*3/uL 2.0-7.7 [facility] Neutrophils/100 WBC (Bld) 60.5 % 47-70 [facility] WBC (Bld) [#/Vol] 8.9 10*3/uL 4.4-11.0 [facility] Blood erythrocytes count (nu mber/volume)Ordered By: Renard Burgos on 01-09-2023 RBC (Bld) [#/Vol] 4.56 10*6/uL 4.6-6.2 [facility] Blood hemoglobin measurement (mass/volume)Ordered By: Renard Burgos on 01-09-2023 Hemoglobin (Bld) [Mass/Vol] 13.8 g/dL 13.0-16.5 [facility] Blood lymphocytes/100 leukoc ytesOrdered By: Renard Burgos on 01-09-2023 Lymphocytes/100 WBC (Bld) 27.0 % 19-41 [facility] Blood monocytes/100 leukocyt esOrdered By: Renard Burgos on 01-09-2023 Monocytes/100 WBC (Bld) 10.7 % 0-10 [facility] Blood platelet mean volumeOr dered By: Renard Burgos on 01-09-2023 Platelet mean volume (Bld) [Entitic vol] 10.8 fL 6.2-12.0 [facility] Determination of erythrocyte mean corpuscular volume (MCV)Ordered By: Renard Burgos on 01-09-2023 MCV (RBC) [Entitic vol] 92.5 fL 80-94 [facility] Hematocrit Auto (Bld) [Volum e fraction]Ordered By: Renard Burgos on 01-09-2023 Hematocrit (Bld) [Volume fraction] 42.2 % 40-54 [facility] - Hematology and Cell countsOrdered By: Renard Burgos on 01-09-2023 Erythrocyte distribution width (RBC) [Entitic vol] 42.7 fL 35.1-43.9 [facility] Erythrocyte distribution width (RBC) [Ratio] 12.5 % 11.6-14.6 [facility] Immature granulocytes/100 WBC (Bld) 0.300 % 0.0-0.9 [facility] Comment on above: IG% - Immature Granu locytes (promyelocytes, myelocytes and metamyelocytes) > 1% indicates that a LEFT SHIFT is Present. MCH (RBC) [Entitic mass] 30.3 pg 27.0-32.0 [facility] Nucleated RBC/100 WBC (Bld) [Ratio] 0 % 0-5 [facility] MCHC Auto (RBC) [Mass/Vol]Or dered By: Renard Burgos on 01-09-2023 MCHC (RBC) [Mass/Vol] 32.7 g/dL 32-36 [facility] Platelets bldOrdered By: Lyubov lizy Loretta on 01-09-2023 Platelets (Bld) [#/Vol] 209 10*3/uL 150-450 [facility] Absolute lymphocyte countOrd ered By: Renard Burgos on 01-03-2023 Lymphocytes Auto (Unsp spec) [#/Vol] 2.18 10*3/uL 0.83-4.51 [facility] Basophil percentageOrdered B y: Renard Burgos on 01-03-2023 Basophils/100 WBC (Bld) 0.6 % 0-1 [facility] Eosinophils/100 WBC (Bld) 0.5 % 0-5 [facility] Neutrophils (Bld) [#/Vol] 5.4 10*3/uL 2.0-7.7 [facility] Neutrophils/100 WBC (Bld) 64.2 % 47-70 [facility] WBC (Bld) [#/Vol] 8.4 10*3/uL 4.4-11.0 [facility] Blood erythrocytes count (nu mber/volume)Ordered By: Renard Burgos on 01-03-2023 RBC (Bld) [#/Vol] 4.59 10*6/uL 4.6-6.2 [facility] Blood hemoglobin measurement (mass/volume)Ordered By: Renard Burgos on 01-03-2023 Hemoglobin (Bld) [Mass/Vol] 13.9 g/dL 13.0-16.5 [facility] Blood lymphocytes/100 leukoc ytesOrdered By: Renard Burgos on 01-03-2023 Lymphocytes/100 WBC (Bld) 25.9 % 19-41 [facility] Blood monocytes/100 leukocyt esOrdered By: Renard Burgos on 01-03-2023 Monocytes/100 WBC (Bld) 8.3 % 0-10 [facility] Blood platelet mean volumeOr dered By: Renard Burgos on 01-03-2023 Platelet mean volume (Bld) [Entitic vol] 11.0 fL 6.2-12.0 [facility] Determination of erythrocyte mean corpuscular volume (MCV)Ordered By: Renard Burgos on 01-03-2023 MCV (RBC) [Entitic vol] 92.8 fL 80-94 [facility] Hematocrit Auto (Bld) [Volum e fraction]Ordered By: Renard Burgos on 01-03-2023 Hematocrit (Bld) [Volume fraction] 42.6 % 40-54 [facility] - Hematology and Cell countsOrdered By: Renard Burgos on 01-03-2023 Erythrocyte distribution width (RBC) [Entitic vol] 42.5 fL 35.1-43.9 [facility] Erythrocyte distribution width (RBC) [Ratio] 12.6 % 11.6-14.6 [facility] Immature granulocytes/100 WBC (Bld) 0.500 % 0.0-0.9 [facility] Comment on above: IG% - Immature Granu locytes (promyelocytes, myelocytes and metamyelocytes) > 1% indicates that a LEFT SHIFT is Present. MCH (RBC) [Entitic mass] 30.3 pg 27.0-32.0 [facility] Nucleated RBC/100 WBC (Bld) [Ratio] 0 % 0-5 [facility] MCHC Auto (RBC) [Mass/Vol]Or dered By: Renard Burgos on 01-03-2023 MCHC (RBC) [Mass/Vol] 32.6 g/dL 32-36 [facility] [place] No Panel InformationOrdered By: Renard Burgos on 01-03-2023 Prostate Specific Antigen Screen 3.37 ng/mL 0.00-4.00 [facility] Comment on above: This test was perfor med using the TPSA assay method for theDimension chemistry system. Values obtained with differentassay methods cannot be used interchangably.When changing PSA assays in the course of monitoring apatient, additional sequential testing should be carriedout to confirm baseline values. Platelets bldOrdered By: Lyubov Burgos on 01-03-2023 Platelets (Bld) [#/Vol] 200 10*3/uL 150-450 [facility] Absolute lymphocyte countOrd ered By: Renard Burgos on 12-26-2022 Lymphocytes Auto (Unsp spec) [#/Vol] 1.80 10*3/uL 0.83-4.51 [facility] Basophil percentageOrdered B y: Renard Burgos on 08-28-2023 Basophils/100 WBC (Bld) 0.4 % 0-1 [facility] Eosinophils/100 WBC (Bld) 0.6 % 0-5 [facility] Neutrophils (Bld) [#/Vol] 6.2 10*3/uL 2.0-7.7 [facility] Neutrophils/100 WBC (Bld) 69.8 % 47-70 [facility] WBC (Bld) [#/Vol] 8.9 10*3/uL 4.4-11.0 [facility] Blood erythrocytes count (nu mber/volume)Ordered By: Renard Burgos on 12-26-2022 RBC (Bld) [#/Vol] 4.58 10*6/uL 4.6-6.2 [facility] Blood hemoglobin measurement (mass/volume)Ordered By: Renard Burgos on 12-26-2022 Hemoglobin (Bld) [Mass/Vol] 14.0 g/dL 13.0-16.5 [facility] Blood lymphocytes/100 leukoc ytesOrdered By: Renard Burgos on 12-26-2022 Lymphocytes/100 WBC (Bld) 20.2 % 19-41 [facility] Blood monocytes/100 leukocyt esOrdered By: Renard Burgos on 12-26-2022 Monocytes/100 WBC (Bld) 8.6 % 0-10 [facility] Blood platelet mean volumeOr dered By: Renard Burgos on 12-26-2022 Platelet mean volume (Bld) [Entitic vol] 10.8 fL 6.2-12.0 [facility] Determination of erythrocyte mean corpuscular volume (MCV)Ordered By: Renard Burgos on 12-26-2022 MCV (RBC) [Entitic vol] 93.2 fL 80-94 [facility] Hematocrit Auto (Bld) [Volum e fraction]Ordered By: Renard Burgos on 12-26-2022 Hematocrit (Bld) [Volume fraction] 42.7 % 40-54 [facility] Laboratory - Hematology and Cell countsOrdered By: Renard Burgos on 12-26-2022 Erythrocyte distribution width (RBC) [Entitic vol] 42.5 fL 35.1-43.9 [facility] Erythrocyte distribution width (RBC) [Ratio] 12.5 % 11.6-14.6 [facility] Immature granulocytes/100 WBC (Bld) 0.400 % 0.0-0.9 [facility] Comment on above: IG% - Immature Granu locytes (promyelocytes, myelocytes and metamyelocytes) > 1% indicates that a LEFT SHIFT is Present. MCH (RBC) [Entitic mass] 30.6 pg 27.0-32.0 [facility] Nucleated RBC/100 WBC (Bld) [Ratio] 0 % 0-5 [facility] MCHC Auto (RBC) [Mass/Vol]Or dered By: Renard Burgos on 12-26-2022 MCHC (RBC) [Mass/Vol] 32.8 g/dL 32-36 [facility] Platelets bldOrdered By: Lyubov Burgos on 12-26-2022 Platelets (Bld) [#/Vol] 200 10*3/uL 150-450 [facility] Absolute lymphocyte countOrd ered By: Renard Burgos on 12-19-2022 Lymphocytes Auto (Unsp spec) [#/Vol] 2.24 10*3/uL 0.83-4.51 [facility] Basophil percentageOrdered B y: Renard Burgos on 12-19-2022 Basophils/100 WBC (Bld) 0.3 % 0-1 [facility] Eosinophils/100 WBC (Bld) 0.8 % 0-5 [facility] Neutrophils (Bld) [#/Vol] 5.7 10*3/uL 2.0-7.7 [facility] Neutrophils/100 WBC (Bld) 64.1 % 47-70 [facility] WBC (Bld) [#/Vol] 8.9 10*3/uL 4.4-11.0 [facility] Blood erythrocytes count (nu mber/volume)Ordered By: Renard Burgos on 12-19-2022 RBC (Bld) [#/Vol] 4.44 10*6/uL 4.6-6.2 [facility] Blood hemoglobin measurement (mass/volume)Ordered By: Renard Burgos on 12-19-2022 Hemoglobin (Bld) [Mass/Vol] 13.5 g/dL 13.0-16.5 [facility] Blood lymphocytes/100 leukoc ytesOrdered By: Renard Burgos on 12-19-2022 Lymphocytes/100 WBC (Bld) 25.1 % 19-41 [facility] Blood monocytes/100 leukocyt esOrdered By: Renard Burgos on 12-19-2022 Monocytes/100 WBC (Bld) 9.4 % 0-10 [facility] Blood platelet mean volumeOr dered By: Renard Burgos on 12-19-2022 Platelet mean volume (Bld) [Entitic vol] 11.0 fL 6.2-12.0 [facility] Determination of erythrocyte mean corpuscular volume (MCV)Ordered By: Renrad Burgos on 12-19-2022 MCV (RBC) [Entitic vol] 92.8 fL 80-94 [facility] Hematocrit Auto (Bld) [Volum e fraction]Ordered By: Renard Burgos on 12-19-2022 Hematocrit (Bld) [Volume fraction] 41.2 % 40-54 [facility] Laboratory - Hematology and Cell countsOrdered By: Renard Burgos on 12-19-2022 Erythrocyte distribution width (RBC) [Entitic vol] 43.2 fL 35.1-43.9 [facility] Erythrocyte distribution width (RBC) [Ratio] 12.7 % 11.6-14.6 [facility] Immature granulocytes/100 WBC (Bld) 0.300 % 0.0-0.9 [facility] Comment on above: IG% - Immature Granu locytes (promyelocytes, myelocytes and metamyelocytes) > 1% indicates that a LEFT SHIFT is Present. MCH (RBC) [Entitic mass] 30.4 pg 27.0-32.0 [facility] Nucleated RBC/100 WBC (Bld) [Ratio] 0 % 0-5 [facility] MCHC Auto (RBC) [Mass/Vol]Or dered By: Renard Burgos on 12-19-2022 MCHC (RBC) [Mass/Vol] 32.8 g/dL 32-36 [facility] Platelets bldOrdered By: Lyubov Burgos on 12-19-2022 Platelets (Bld) [#/Vol] 194 10*3/uL 150-450 [facility] Absolute lymphocyte countOrd ered By: Renard Burgos on 12-12-2022 Lymphocytes Auto (Unsp spec) [#/Vol] 2.33 10*3/uL 0.83-4.51 [facility] Basophil percentageOrdered B y: Renard Burgos on 12-12-2022 Basophils/100 WBC (Bld) 0.6 % 0-1 [facility] Eosinophils/100 WBC (Bld) 0.9 % 0-5 [facility] Neutrophils (Bld) [#/Vol] 5.8 10*3/uL 2.0-7.7 [facility] Neutrophils/100 WBC (Bld) 63.5 % 47-70 [facility] WBC (Bld) [#/Vol] 9.1 10*3/uL 4.4-11.0 [facility] Blood erythrocytes count (nu mber/volume)Ordered By: Renard Burgos on 12-12-2022 RBC (Bld) [#/Vol] 4.52 10*6/uL 4.6-6.2 [facility] Blood hemoglobin measurement (mass/volume)Ordered By: Renard Burgos on 12-12-2022 Hemoglobin (Bld) [Mass/Vol] 13.9 g/dL 13.0-16.5 [facility] Blood lymphocytes/100 leukoc ytesOrdered By: Renard Burgos on 12-12-2022 Lymphocytes/100 WBC (Bld) 25.6 % 19-41 [facility] Blood monocytes/100 leukocyt esOrdered By: Renard Burgos on 12-12-2022 Monocytes/100 WBC (Bld) 9.1 % 0-10 [facility] Blood platelet mean volumeOr dered By: Renard Burgos on 12-12-2022 Platelet mean volume (Bld) [Entitic vol] 10.9 fL 6.2-12.0 [facility] Determination of erythrocyte mean corpuscular volume (MCV)Ordered By: Renard Burgos on 12-12-2022 MCV (RBC) [Entitic vol] 94.2 fL 80-94 [facility] Hematocrit Auto (Bld) [Volum e fraction]Ordered By: Renard Burgos on 12-12-2022 Hematocrit (Bld) [Volume fraction] 42.6 % 40-54 [facility] Laboratory - Hematology and Cell countsOrdered By: Renard Burgos on 12-12-2022 Erythrocyte distribution width (RBC) [Entitic vol] 44.3 fL 35.1-43.9 [facility] Erythrocyte distribution width (RBC) [Ratio] 12.8 % 11.6-14.6 [facility] Immature granulocytes/100 WBC (Bld) 0.300 % 0.0-0.9 [facility] Comment on above: IG% - Immature Granu locytes (promyelocytes, myelocytes and metamyelocytes) > 1% indicates that a LEFT SHIFT is Present. MCH (RBC) [Entitic mass] 30.8 pg 27.0-32.0 [facility] Nucleated RBC/100 WBC (Bld) [Ratio] 0 % 0-5 [facility] MCHC Auto (RBC) [Mass/Vol]Or dered By: Renard Burgos on 12-12-2022 MCHC (RBC) [Mass/Vol] 32.6 g/dL 32-36 [facility] Platelets bldOrdered By: Lyubov Burgos on 12-12-2022 Platelets (Bld) [#/Vol] 211 10*3/uL 150-450 [facility] Absolute lymphocyte countOrd ered By: Renard Burgos on 12-05-2022 Lymphocytes Auto (Unsp spec) [#/Vol] 1.94 10*3/uL 0.83-4.51 [facility] Basophil percentageOrdered B y: Renard Burgos on 12-05-2022 Basophils/100 WBC (Bld) 0.4 % 0-1 [facility] Eosinophils/100 WBC (Bld) 0.9 % 0-5 [facility] Neutrophils (Bld) [#/Vol] 4.1 10*3/uL 2.0-7.7 [facility] Neutrophils/100 WBC (Bld) 61.2 % 47-70 [facility] WBC (Bld) [#/Vol] 6.7 10*3/uL 4.4-11.0 [facility] Blood erythrocytes count (nu mber/volume)Ordered By: Rneard Burgos on 12-05-2022 RBC (Bld) [#/Vol] 4.39 10*6/uL 4.6-6.2 [facility] Blood hemoglobin measurement (mass/volume)Ordered By: Renard Burgos on 12-05-2022 Hemoglobin (Bld) [Mass/Vol] 13.3 g/dL 13.0-16.5 [facility] Blood lymphocytes/100 leukoc ytesOrdered By: Renard Burgos on 12-05-2022 Lymphocytes/100 WBC (Bld) 28.8 % 19-41 [facility] Blood monocytes/100 leukocyt esOrdered By: Renard Burgos on 12-05-2022 Monocytes/100 WBC (Bld) 8.3 % 0-10 [facility] Blood platelet mean volumeOr dered By: Renard Burgos on 12-05-2022 Platelet mean volume (Bld) [Entitic vol] 10.8 fL 6.2-12.0 [facility] Determination of erythrocyte mean corpuscular volume (MCV)Ordered By: Renard Burgos on 12-05-2022 MCV (RBC) [Entitic vol] 90.7 fL 80-94 [facility] Hematocrit Auto (Bld) [Volum e fraction]Ordered By: Renard Burgos on 12-05-2022 Hematocrit (Bld) [Volume fraction] 39.8 % 40-54 [facility] Laboratory - Hematology and Cell countsOrdered By: Renard Burgos on 12-05-2022 Erythrocyte distribution width (RBC) [Entitic vol] 41.8 fL 35.1-43.9 [facility] Erythrocyte distribution width (RBC) [Ratio] 12.6 % 11.6-14.6 [facility] Immature granulocytes/100 WBC (Bld) 0.400 % 0.0-0.9 [facility] Comment on above: IG% - Immature Granu locytes (promyelocytes, myelocytes and metamyelocytes) > 1% indicates that a LEFT SHIFT is Present. MCH (RBC) [Entitic mass] 30.3 pg 27.0-32.0 [facility] Nucleated RBC/100 WBC (Bld) [Ratio] 0 % 0-5 [facility] MCHC Auto (RBC) [Mass/Vol]Or dered By: Renard Burgos on 12-05-2022 MCHC (RBC) [Mass/Vol] 33.4 g/dL 32-36 [facility] Platelets bldOrdered By: Lyubov medel Loretta on 12-05-2022 Platelets (Bld) [#/Vol] 208 10*3/uL 150-450 [facility] Absolute lymphocyte countOrd ered By: Renard Burgos on 11-28-2022 Lymphocytes Auto (Unsp spec) [#/Vol] 2.07 10*3/uL 0.83-4.51 [facility] Basophil percentageOrdered B y: Renard Burgos on 11-28-2022 Basophils/100 WBC (Bld) 0.4 % 0-1 [facility] Eosinophils/100 WBC (Bld) 0.6 % 0-5 [facility] Neutrophils (Bld) [#/Vol] 5.1 10*3/uL 2.0-7.7 [facility] Neutrophils/100 WBC (Bld) 64.6 % 47-70 [facility] WBC (Bld) [#/Vol] 7.9 10*3/uL 4.4-11.0 [facility] Blood erythrocytes count (nu mber/volume)Ordered By: Renard Burgos on 11-28-2022 RBC (Bld) [#/Vol] 4.54 10*6/uL 4.6-6.2 [facility] Blood hemoglobin measurement (mass/volume)Ordered By: Renard Burgos on 11-28-2022 Hemoglobin (Bld) [Mass/Vol] 13.7 g/dL 13.0-16.5 [facility] Blood lymphocytes/100 leukoc ytesOrdered By: Renard Burgos on 11-28-2022 Lymphocytes/100 WBC (Bld) 26.2 % 19-41 [facility] Blood monocytes/100 leukocyt esOrdered By: Renard Burgos on 11-28-2022 Monocytes/100 WBC (Bld) 7.7 % 0-10 [facility] Blood platelet mean volumeOr dered By: Renard Burgos on 11-28-2022 Platelet mean volume (Bld) [Entitic vol] 10.6 fL 6.2-12.0 [facility] Determination of erythrocyte mean corpuscular volume (MCV)Ordered By: Renard Burgos on 11-28-2022 MCV (RBC) [Entitic vol] 93.6 fL 80-94 [facility] Hematocrit Auto (Bld) [Volum e fraction]Ordered By: Renard Burgos on 11-28-2022 Hematocrit (Bld) [Volume fraction] 42.5 % 40-54 [facility] Laboratory - Hematology and Cell countsOrdered By: Renard Burgos on 11-28-2022 Erythrocyte distribution width (RBC) [Entitic vol] 43.5 fL 35.1-43.9 [facility] Erythrocyte distribution width (RBC) [Ratio] 12.7 % 11.6-14.6 [facility] Immature granulocytes/100 WBC (Bld) 0.500 % 0.0-0.9 [facility] Comment on above: IG% - Immature Granu locytes (promyelocytes, myelocytes and metamyelocytes) > 1% indicates that a LEFT SHIFT is Present. MCH (RBC) [Entitic mass] 30.2 pg 27.0-32.0 [facility] Nucleated RBC/100 WBC (Bld) [Ratio] 0 % 0-5 [facility] MCHC Auto (RBC) [Mass/Vol]Or dered By: Renard Burgos on 11-28-2022 MCHC (RBC) [Mass/Vol] 32.2 g/dL 32-36 [facility] Platelets bldOrdered By: Lyubov Burgos on 11-28-2022 Platelets (Bld) [#/Vol] 201 10*3/uL 150-450 [facility] Absolute lymphocyte countOrd ered By: Renard Burgos on 11-21-2022 Lymphocytes Auto (Unsp spec) [#/Vol] 2.32 10*3/uL 0.83-4.51 [facility] Basophil percentageOrdered B y: Renard Burgos on 11-21-2022 Basophils/100 WBC (Bld) 0.6 % 0-1 [facility] Eosinophils/100 WBC (Bld) 0.7 % 0-5 [facility] Neutrophils (Bld) [#/Vol] 5.0 10*3/uL 2.0-7.7 [facility] Neutrophils/100 WBC (Bld) 60.6 % 47-70 [facility] WBC (Bld) [#/Vol] 8.2 10*3/uL 4.4-11.0 [facility] Blood erythrocytes count (nu mber/volume)Ordered By: Renard Burgos on 11-21-2022 RBC (Bld) [#/Vol] 4.71 10*6/uL 4.6-6.2 [facility] Blood hemoglobin measurement (mass/volume)Ordered By: Renard Burgos on 11-21-2022 Hemoglobin (Bld) [Mass/Vol] 14.3 g/dL 13.0-16.5 [facility] Blood lymphocytes/100 leukoc ytesOrdered By: Renard Burgos on 11-21-2022 Lymphocytes/100 WBC (Bld) 28.2 % 19-41 [facility] Blood monocytes/100 leukocyt esOrdered By: Renard Burgos on 11-21-2022 Monocytes/100 WBC (Bld) 9.2 % 0-10 [facility] Blood platelet mean volumeOr dered By: Renard Burgos on 11-21-2022 Platelet mean volume (Bld) [Entitic vol] 10.4 fL 6.2-12.0 [facility] Determination of erythrocyte mean corpuscular volume (MCV)Ordered By: Renard Burgos on 11-21-2022 MCV (RBC) [Entitic vol] 91.9 fL 80-94 [facility] Hematocrit Auto (Bld) [Volum e fraction]Ordered By: Renard Burgos on 11-21-2022 Hematocrit (Bld) [Volume fraction] 43.3 % 40-54 [facility] Laboratory - Hematology and Cell countsOrdered By: Renard Burgos on 11-21-2022 Erythrocyte distribution width (RBC) [Entitic vol] 43.1 fL 35.1-43.9 [facility] Erythrocyte distribution width (RBC) [Ratio] 12.8 % 11.6-14.6 [facility] Immature granulocytes/100 WBC (Bld) 0.700 % 0.0-0.9 [facility] Comment on above: IG% - Immature Granu locytes (promyelocytes, myelocytes and metamyelocytes) > 1% indicates that a LEFT SHIFT is Present. MCH (RBC) [Entitic mass] 30.4 pg 27.0-32.0 [facility] Nucleated RBC/100 WBC (Bld) [Ratio] 0 % 0-5 [facility] MCHC Auto (RBC) [Mass/Vol]Or dered By: Renard Burgos on 11-21-2022 MCHC (RBC) [Mass/Vol] 33.0 g/dL 32-36 [facility] Platelets bldOrdered By: Lyubov Burgos on 11-21-2022 Platelets (Bld) [#/Vol] 219 10*3/uL 150-450 [facility] Absolute lymphocyte countOrd ered By: Renard Burgos on 11-14-2022 Lymphocytes Auto (Unsp spec) [#/Vol] 1.82 10*3/uL 0.83-4.51 [facility] Basophil percentageOrdered B y: Renard Burgos on 11-14-2022 Basophils/100 WBC (Bld) 0.4 % 0-1 [facility] Chloride [Moles/Vol] 107 mmol/L 98-107 [facility] [place] Eosinophils/100 WBC (Bld) 0.4 % 0-5 [facility] Glucose [Mass/Vol] 121 mg/dL 74-106 [facility] Comment on above: Fasting Glucose resu lt from 100 to 125 mg/dL suggests IMPAIRED HOMEOSTASIS per A.D.A. criteria. Neutrophils (Bld) [#/Vol] 4.7 10*3/uL 2.0-7.7 [facility] Neutrophils/100 WBC (Bld) 66.6 % 47-70 [facility] Potassium [Moles/Vol] 3.7 mmol/L 3.5-5.1 [facility] Sodium [Moles/Vol] 141 mmol/L 136-145 [facility] WBC (Bld) [#/Vol] 7.1 10*3/uL 4.4-11.0 [facility] Blood erythrocytes count (nu mber/volume)Ordered By: Renard Burgos on 11-14-2022 RBC (Bld) [#/Vol] 4.35 10*6/uL 4.6-6.2 [facility] Blood hemoglobin measurement (mass/volume)Ordered By: Renard Burgos on 11-14-2022 Hemoglobin (Bld) [Mass/Vol] 13.6 g/dL 13.0-16.5 [facility] Blood lymphocytes/100 leukoc ytesOrdered By: Renard Burgos on 11-14-2022 Lymphocytes/100 WBC (Bld) 25.6 % 19-41 [facility] Blood monocytes/100 leukocyt esOrdered By: Renard Burgos on 11-14-2022 Monocytes/100 WBC (Bld) 6.6 % 0-10 [facility] Blood platelet mean volumeOr dered By: Renard Burgos on 11-14-2022 Platelet mean volume (Bld) [Entitic vol] 10.9 fL 6.2-12.0 [facility] Determination of erythrocyte mean corpuscular volume (MCV)Ordered By: Renard Burgos on 11-14-2022 MCV (RBC) [Entitic vol] 93.3 fL 80-94 [facility] Hematocrit Auto (Bld) [Volum e fraction]Ordered By: Renard Burgos on 11-14-2022 Hematocrit (Bld) [Volume fraction] 40.6 % 40-54 [facility] Laboratory - Chemistry and C hemistry - challengeOrdered By: Renard Burgos on 11-14-2022 CO2 [Moles/Vol] 31.0 mmol/L 21.0-32.0 [facility] Urea nitrogen/Creatinine [Mass ratio] 26.0 mg/mg 10-20 [facility] - Hematology and Cell countsOrdered By: Renard Burgos on 11-14-2022 Erythrocyte distribution width (RBC) [Entitic vol] 43.9 fL 35.1-43.9 [facility] Erythrocyte distribution width (RBC) [Ratio] 12.8 % 11.6-14.6 [facility] Immature granulocytes/100 WBC (Bld) 0.400 % 0.0-0.9 [facility] Comment on above: IG% - Immature Granu locytes (promyelocytes, myelocytes and metamyelocytes) > 1% indicates that a LEFT SHIFT is Present. MCH (RBC) [Entitic mass] 31.3 pg 27.0-32.0 [facility] Nucleated RBC/100 WBC (Bld) [Ratio] 0 % 0-5 [facility] MCHC Auto (RBC) [Mass/Vol]Or dered By: Renard Burgos on 11-14-2022 MCHC (RBC) [Mass/Vol] 33.5 g/dL 32-36 [facility] [place] No Panel InformationOrdered By: Renard Burgos on 11-14-2022 Estimated GFR (MDRD) Amer 147 mL/min >60 [facility] Comment on above: GFR Calc Estimated GFR (MDRD) Non-Af Amer 122 mL/min >60 [facility] Comment on above: Non- GFR Calc Platelets bldOrdered By: Lyubov Burgos on 11-14-2022 Platelets (Bld) [#/Vol] 202 10*3/uL 150-450 [facility] Serum or plasma calcium gordy urement (mass/volume)Ordered By: Renard Burgos on 11-14-2022 Calcium [Mass/Vol] 8.2 mg/dL 8.5-10.1 [facility] Serum or plasma creatinine m easurement (mass/volume)Ordered By: Renard Burgos on 11-14-2022 Creatinine [Mass/Vol] 0.69 mg/dL 0.70-1.30 [facility] Comment on above: The validity of the calculated GFR & GFRAA in patients over 70 years has not been determined. Clinical correlation is essential. Serum or plasma urea nitroge n measurement (mass/volume)Ordered By: Renard Burgos on 11-14-2022 Urea nitrogen [Mass/Vol] 18 mg/dL 7-18 [facility] Thin prep Papanicolaou smear with manual screeningOrdered By: Renard Burgos on 11-14-2022 Thin prep Papanicolaou smear with manual screening 3 5-15 [facility] Absolute lymphocyte countOrd ered By: Renard Burgos on 11-07-2022 Lymphocytes Auto (Unsp spec) [#/Vol] 1.99 10*3/uL 0.83-4.51 [facility] Basophil percentageOrdered B y: Renard Brugos on 11-07-2022 Basophils/100 WBC (Bld) 0.8 % 0-1 [facility] Eosinophils/100 WBC (Bld) 0.5 % 0-5 [facility] Neutrophils (Bld) [#/Vol] 5.1 10*3/uL 2.0-7.7 [facility] Neutrophils/100 WBC (Bld) 64.0 % 47-70 [facility] WBC (Bld) [#/Vol] 8.0 10*3/uL 4.4-11.0 [facility] Blood erythrocytes count (nu mber/volume)Ordered By: Renard Burgos on 11-07-2022 RBC (Bld) [#/Vol] 4.45 10*6/uL 4.6-6.2 [facility] Blood hemoglobin measurement (mass/volume)Ordered By: Renard Burgos on 11-07-2022 Hemoglobin (Bld) [Mass/Vol] 13.7 g/dL 13.0-16.5 [facility] Blood lymphocytes/100 leukoc ytesOrdered By: Renard Burgos on 11-07-2022 Lymphocytes/100 WBC (Bld) 25.0 % 19-41 [facility] Blood monocytes/100 leukocyt esOrdered By: Renard Burgos on 11-07-2022 Monocytes/100 WBC (Bld) 9.4 % 0-10 [facility] Blood platelet mean volumeOr dered By: Renard Burgos on 11-07-2022 Platelet mean volume (Bld) [Entitic vol] 10.7 fL 6.2-12.0 [facility] Determination of erythrocyte mean corpuscular volume (MCV)Ordered By: Renard Burgos on 11-07-2022 MCV (RBC) [Entitic vol] 91.5 fL 80-94 [facility] Hematocrit Auto (Bld) [Volum e fraction]Ordered By: Renard Burgos on 11-07-2022 Hematocrit (Bld) [Volume fraction] 40.7 % 40-54 [facility] - Hematology and Cell countsOrdered By: Renard Burgos on 11-07-2022 Erythrocyte distribution width (RBC) [Entitic vol] 42.4 fL 35.1-43.9 [facility] Erythrocyte distribution width (RBC) [Ratio] 12.8 % 11.6-14.6 [facility] Immature granulocytes/100 WBC (Bld) 0.300 % 0.0-0.9 [facility] Comment on above: IG% - Immature Granu locytes (promyelocytes, myelocytes and metamyelocytes) > 1% indicates that a LEFT SHIFT is Present. MCH (RBC) [Entitic mass] 30.8 pg 27.0-32.0 [facility] Nucleated RBC/100 WBC (Bld) [Ratio] 0 % 0-5 [facility] MCHC Auto (RBC) [Mass/Vol]Or dered By: Renard Burgos on 11-07-2022 MCHC (RBC) [Mass/Vol] 33.7 g/dL 32-36 [facility] Platelets bldOrdered By: Lyubov Burgos on 11-07-2022 Platelets (Bld) [#/Vol] 220 10*3/uL 150-450 [facility] Absolute lymphocyte countOrd ered By: Renard Burgos on 10-31-2022 Lymphocytes Auto (Unsp spec) [#/Vol] 1.97 10*3/uL 0.83-4.51 [facility] Basophil percentageOrdered B y: Renard Burgos on 10-31-2022 Basophils/100 WBC (Bld) 0.5 % 0-1 [facility] Eosinophils/100 WBC (Bld) 0.6 % 0-5 [facility] Neutrophils (Bld) [#/Vol] 6.7 10*3/uL 2.0-7.7 [facility] Neutrophils/100 WBC (Bld) 69.9 % 47-70 [facility] WBC (Bld) [#/Vol] 9.6 10*3/uL 4.4-11.0 [facility] Blood erythrocytes count (nu mber/volume)Ordered By: Renard Burgos on 10-31-2022 RBC (Bld) [#/Vol] 4.47 10*6/uL 4.6-6.2 [facility] Blood hemoglobin measurement (mass/volume)Ordered By: Renard Burgos on 10-31-2022 Hemoglobin (Bld) [Mass/Vol] 13.5 g/dL 13.0-16.5 [facility] Blood lymphocytes/100 leukoc ytesOrdered By: Renard Burgos on 10-31-2022 Lymphocytes/100 WBC (Bld) 20.5 % 19-41 [facility] Blood monocytes/100 leukocyt esOrdered By: Renard Burgos on 10-31-2022 Monocytes/100 WBC (Bld) 7.9 % 0-10 [facility] Blood platelet mean volumeOr dered By: Renard Burgos on 10-31-2022 Platelet mean volume (Bld) [Entitic vol] 11.1 fL 6.2-12.0 [facility] Determination of erythrocyte mean corpuscular volume (MCV)Ordered By: Renard Burgos on 10-31-2022 MCV (RBC) [Entitic vol] 92.4 fL 80-94 [facility] Hematocrit Auto (Bld) [Volum e fraction]Ordered By: Renard Burgos on 10-31-2022 Hematocrit (Bld) [Volume fraction] 41.3 % 40-54 [facility] Laboratory - Hematology and Cell countsOrdered By: Renard Burgos on 10-31-2022 Erythrocyte distribution width (RBC) [Entitic vol] 42.9 fL 35.1-43.9 [facility] Erythrocyte distribution width (RBC) [Ratio] 12.7 % 11.6-14.6 [facility] Immature granulocytes/100 WBC (Bld) 0.600 % 0.0-0.9 [facility] Comment on above: IG% - Immature Granu locytes (promyelocytes, myelocytes and metamyelocytes) > 1% indicates that a LEFT SHIFT is Present. MCH (RBC) [Entitic mass] 30.2 pg 27.0-32.0 [facility] Nucleated RBC/100 WBC (Bld) [Ratio] 0 % 0-5 [facility] MCHC Auto (RBC) [Mass/Vol]Or dered By: Renard Burgos on 10-31-2022 MCHC (RBC) [Mass/Vol] 32.7 g/dL 32-36 [facility] [place] Platelets bldOrdered By: Lyubov Burgos on 10-31-2022 Platelets (Bld) [#/Vol] 221 10*3/uL 150-450 [facility] Absolute lymphocyte countOrd ered By: Renard Burgos on 10-24-2022 Lymphocytes Auto (Unsp spec) [#/Vol] 1.96 10*3/uL 0.83-4.51 [facility] Basophil percentageOrdered B y: Renard Burgos on 10-24-2022 Basophils/100 WBC (Bld) 0.4 % 0-1 [facility] Eosinophils/100 WBC (Bld) 0.7 % 0-5 [facility] Neutrophils (Bld) [#/Vol] 4.5 10*3/uL 2.0-7.7 [facility] Neutrophils/100 WBC (Bld) 61.9 % 47-70 [facility] WBC (Bld) [#/Vol] 7.3 10*3/uL 4.4-11.0 [facility] Blood erythrocytes count (nu mber/volume)Ordered By: Renard Burgos on 10-24-2022 RBC (Bld) [#/Vol] 4.41 10*6/uL 4.6-6.2 [facility] Blood hemoglobin measurement (mass/volume)Ordered By: Renard Burgos on 10-24-2022 Hemoglobin (Bld) [Mass/Vol] 13.2 g/dL 13.0-16.5 [facility] Blood lymphocytes/100 leukoc ytesOrdered By: Renard Burgos on 10-24-2022 Lymphocytes/100 WBC (Bld) 27.0 % 19-41 [facility] Blood monocytes/100 leukocyt esOrdered By: Renard Burgos on 10-24-2022 Monocytes/100 WBC (Bld) 9.4 % 0-10 [facility] Blood platelet mean volumeOr dered By: Renard Burgos on 10-24-2022 Platelet mean volume (Bld) [Entitic vol] 10.9 fL 6.2-12.0 [facility] Determination of erythrocyte mean corpuscular volume (MCV)Ordered By: Renard Burgos on 10-24-2022 MCV (RBC) [Entitic vol] 92.1 fL 80-94 [facility] Hematocrit Auto (Bld) [Volum e fraction]Ordered By: Renard Burgos on 10-24-2022 Hematocrit (Bld) [Volume fraction] 40.6 % 40-54 [facility] Laboratory - Hematology and Cell countsOrdered By: Renard Burgos on 10-24-2022 Erythrocyte distribution width (RBC) [Entitic vol] 42.8 fL 35.1-43.9 [facility] Erythrocyte distribution width (RBC) [Ratio] 12.8 % 11.6-14.6 [facility] Immature granulocytes/100 WBC (Bld) 0.600 % 0.0-0.9 [facility] Comment on above: IG% - Immature Granu locytes (promyelocytes, myelocytes and metamyelocytes) > 1% indicates that a LEFT SHIFT is Present. MCH (RBC) [Entitic mass] 29.9 pg 27.0-32.0 [facility] Nucleated RBC/100 WBC (Bld) [Ratio] 0 % 0-5 [facility] MCHC Auto (RBC) [Mass/Vol]Or dered By: Renard Burgos on 10-24-2022 MCHC (RBC) [Mass/Vol] 32.5 g/dL 32-36 [facility] [place] Platelets bldOrdered By: Lyubov Burgos on 10-24-2022 Platelets (Bld) [#/Vol] 213 10*3/uL 150-450 [facility] Absolute lymphocyte countOrd ered By: Renard Burgos on 10-17-2022 Lymphocytes Auto (Unsp spec) [#/Vol] 2.05 10*3/uL 0.83-4.51 [facility] Basophil percentageOrdered B y: Renard Burgos on 10-17-2022 Basophils/100 WBC (Bld) 0.4 % 0-1 [facility] Eosinophils/100 WBC (Bld) 0.5 % 0-5 [facility] Neutrophils (Bld) [#/Vol] 6.7 10*3/uL 2.0-7.7 [facility] Neutrophils/100 WBC (Bld) 70.9 % 47-70 [facility] WBC (Bld) [#/Vol] 9.4 10*3/uL 4.4-11.0 [facility] Blood erythrocytes count (nu mber/volume)Ordered By: Renard Burgos on 10-17-2022 RBC (Bld) [#/Vol] 4.33 10*6/uL 4.6-6.2 [facility] Blood hemoglobin measurement (mass/volume)Ordered By: Renard Burgos on 10-17-2022 Hemoglobin (Bld) [Mass/Vol] 13.3 g/dL 13.0-16.5 [facility] Blood lymphocytes/100 leukoc ytesOrdered By: Renard Burgos on 10-17-2022 Lymphocytes/100 WBC (Bld) 21.7 % 19-41 [facility] Blood monocytes/100 leukocyt esOrdered By: Renard Burgos on 10-17-2022 Monocytes/100 WBC (Bld) 6.1 % 0-10 [facility] Blood platelet mean volumeOr dered By: Renard Burgos on 10-17-2022 Platelet mean volume (Bld) [Entitic vol] 10.9 fL 6.2-12.0 [facility] Determination of erythrocyte mean corpuscular volume (MCV)Ordered By: Renard Burgos on 10-17-2022 MCV (RBC) [Entitic vol] 93.8 fL 80-94 [facility] Hematocrit Auto (Bld) [Volum e fraction]Ordered By: Renard Burgos on 10-17-2022 Hematocrit (Bld) [Volume fraction] 40.6 % 40-54 [facility] Laboratory - Hematology and Cell countsOrdered By: Renard Burgos on 10-17-2022 Erythrocyte distribution width (RBC) [Entitic vol] 42.7 fL 35.1-43.9 [facility] Erythrocyte distribution width (RBC) [Ratio] 12.4 % 11.6-14.6 [facility] Immature granulocytes/100 WBC (Bld) 0.400 % 0.0-0.9 [facility] Comment on above: IG% - Immature Granu locytes (promyelocytes, myelocytes and metamyelocytes) > 1% indicates that a LEFT SHIFT is Present. MCH (RBC) [Entitic mass] 30.7 pg 27.0-32.0 [facility] Nucleated RBC/100 WBC (Bld) [Ratio] 0 % 0-5 [facility] MCHC Auto (RBC) [Mass/Vol]Or dered By: Renard Burgos on 10-17-2022 MCHC (RBC) [Mass/Vol] 32.8 g/dL 32-36 [facility] Platelets bldOrdered By: Lyubov Burgos on 10-17-2022 Platelets (Bld) [#/Vol] 186 10*3/uL 150-450 [facility] Absolute lymphocyte countOrd ered By: Renard Burgos on 10-10-2022 Lymphocytes Auto (Unsp spec) [#/Vol] 2.21 10*3/uL 0.83-4.51 [facility] Basophil percentageOrdered B y: Renard Burgos on 10-10-2022 Basophils/100 WBC (Bld) 0.6 % 0-1 [facility] Eosinophils/100 WBC (Bld) 0.6 % 0-5 [facility] Neutrophils (Bld) [#/Vol] 4.7 10*3/uL 2.0-7.7 [facility] Neutrophils/100 WBC (Bld) 59.6 % 47-70 [facility] WBC (Bld) [#/Vol] 7.9 10*3/uL 4.4-11.0 [facility] Blood erythrocytes count (nu mber/volume)Ordered By: Renard Burgos on 10-10-2022 RBC (Bld) [#/Vol] 4.78 10*6/uL 4.6-6.2 [facility] Blood hemoglobin measurement (mass/volume)Ordered By: Renard Burgos on 10-10-2022 Hemoglobin (Bld) [Mass/Vol] 14.4 g/dL 13.0-16.5 [facility] Blood lymphocytes/100 leukoc ytesOrdered By: Renard Burgos on 10-10-2022 Lymphocytes/100 WBC (Bld) 28.0 % 19-41 [facility] Blood monocytes/100 leukocyt esOrdered By: Renard Burgos on 10-10-2022 Monocytes/100 WBC (Bld) 10.8 % 0-10 [facility] Blood platelet mean volumeOr dered By: Renard Burgos on 10-10-2022 Platelet mean volume (Bld) [Entitic vol] 10.7 fL 6.2-12.0 [facility] Determination of erythrocyte mean corpuscular volume (MCV)Ordered By: Renard Burgos on 10-10-2022 MCV (RBC) [Entitic vol] 94.8 fL 80-94 [facility] Hematocrit Auto (Bld) [Volum e fraction]Ordered By: Renard Burgos on 10-10-2022 Hematocrit (Bld) [Volume fraction] 45.3 % 40-54 [facility] Laboratory - Hematology and Cell countsOrdered By: Renard Burgos on 10-10-2022 Erythrocyte distribution width (RBC) [Entitic vol] 43.8 fL 35.1-43.9 [facility] Erythrocyte distribution width (RBC) [Ratio] 12.6 % 11.6-14.6 [facility] Immature granulocytes/100 WBC (Bld) 0.400 % 0.0-0.9 [facility] Comment on above: IG% - Immature Granu locytes (promyelocytes, myelocytes and metamyelocytes) > 1% indicates that a LEFT SHIFT is Present. MCH (RBC) [Entitic mass] 30.1 pg 27.0-32.0 [facility] Nucleated RBC/100 WBC (Bld) [Ratio] 0 % 0-5 [facility] MCHC Auto (RBC) [Mass/Vol]Or dered By: Renard Burgos on 10-10-2022 MCHC (RBC) [Mass/Vol] 31.8 g/dL 32-36 [facility] Platelets bldOrdered By: Lyubov Burgos on 10-10-2022 Platelets (Bld) [#/Vol] 198 10*3/uL 150-450 [facility] Absolute lymphocyte countOrd ered By: Renard Burgos on 10-03-2022 Lymphocytes Auto (Unsp spec) [#/Vol] 2.00 10*3/uL 0.83-4.51 [facility] Basophil percentageOrdered B y: Renard Burgos on 10-03-2022 Basophils/100 WBC (Bld) 0.6 % 0-1 [facility] Bilirubin [Mass/Vol] 0.30 mg/dL 0.20-1.00 [facility] [place] Comment on above: For patients on eltr ombopag therapy, use of Dimension [place] TBIL is not recommended. Chloride [Moles/Vol] 109 mmol/L 98-107 [facility] Cholesterol [Mass/Vol] 129 mg/dL <200 [facility] Comment on above: <200 mg/dL Desirable 200-240 mg/dL Borderline >240 mg/dL High Risk Eosinophils/100 WBC (Bld) 0.8 % 0-5 [facility] Glucose [Mass/Vol] 82 mg/dL 74-106 [facility] Neutrophils (Bld) [#/Vol] 5.1 10*3/uL 2.0-7.7 [facility] Neutrophils/100 WBC (Bld) 63.2 % 47-70 [facility] Potassium [Moles/Vol] 3.9 mmol/L 3.5-5.1 [facility] Protein [Mass/Vol] 6.1 g/dL 6.4-8.2 [facility] Sodium [Moles/Vol] 140 mmol/L 136-145 [facility] Triglyceride [Mass/Vol] 209 mg/dL <199 [facility] Comment on above: The drugs N-Acetylcy steine and Metamizole may falsely depress this assay.Serum Triglycerides Reference Interval Normal <150 mg/dL Borderline high 150 - 199 mg/dL High 200 - 499 mg/dL Very High > or = 500 mg/dL WBC (Bld) [#/Vol] 8.0 10*3/uL 4.4-11.0 [facility] Blood erythrocytes count (nu mber/volume)Ordered By: Renard Burgos on 10-03-2022 RBC (Bld) [#/Vol] 4.58 10*6/uL 4.6-6.2 [facility] Blood hemoglobin measurement (mass/volume)Ordered By: Renard Burgos on 10-03-2022 Hemoglobin (Bld) [Mass/Vol] 13.9 g/dL 13.0-16.5 [facility] Blood lymphocytes/100 leukoc ytesOrdered By: Renard Burgos on 10-03-2022 Lymphocytes/100 WBC (Bld) 25.1 % 19-41 [facility] Blood monocytes/100 leukocyt esOrdered By: Renard Burgos on 10-03-2022 Monocytes/100 WBC (Bld) 10.0 % 0-10 [facility] Blood platelet mean volumeOr dered By: Renard Burgos on 10-03-2022 Platelet mean volume (Bld) [Entitic vol] 11.1 fL 6.2-12.0 [facility] Determination of erythrocyte mean corpuscular volume (MCV)Ordered By: Renard Burgos on 10-03-2022 MCV (RBC) [Entitic vol] 93.9 fL 80-94 [facility] Hematocrit Auto (Bld) [Volum e fraction]Ordered By: Renard Burgos on 10-03-2022 Hematocrit (Bld) [Volume fraction] 43.0 % 40-54 [facility] Laboratory - Chemistry and C hemistry - challengeOrdered By: Renard Burgos on 10-03-2022 ALP [Catalytic activity/Vol] 98 U/L 45-117 [facility] ALT [Catalytic activity/Vol] 19 U/L 16-61 [facility] CO2 [Moles/Vol] 31.0 mmol/L 21.0-32.0 [facility] Globulin (S) [Mass/Vol] 3.1 g/dL 2.2-4.2 [facility] Urea nitrogen/Creatinine [Mass ratio] 25.6 mg/mg 10-20 [facility] Laboratory - Hematology and Cell countsOrdered By: Renard Burgos on 10-03-2022 Erythrocyte distribution width (RBC) [Entitic vol] 43.8 fL 35.1-43.9 [facility] Erythrocyte distribution width (RBC) [Ratio] 12.7 % 11.6-14.6 [facility] Immature granulocytes/100 WBC (Bld) 0.300 % 0.0-0.9 [facility] Comment on above: IG% - Immature Granu locytes (promyelocytes, myelocytes and metamyelocytes) > 1% indicates that a LEFT SHIFT is Present. MCH (RBC) [Entitic mass] 30.3 pg 27.0-32.0 [facility] Nucleated RBC/100 WBC (Bld) [Ratio] 0 % 0-5 [facility] MCHC Auto (RBC) [Mass/Vol]Or dered By: Renard Burgos on 10-03-2022 MCHC (RBC) [Mass/Vol] 32.3 g/dL 32-36 [facility] No Panel InformationOrdered By: Renard Burgos on 10-03-2022 Estimated GFR (MDRD) Amer 165 mL/min >60 [facility] Comment on above: GFR Calc Estimated GFR (MDRD) Non-Af Amer 137 mL/min >60 [facility] Comment on above: Non- GFR Calc Platelets bldOrdered By: Lyubov Burgos on 10-03-2022 Platelets (Bld) [#/Vol] 204 10*3/uL 150-450 [facility] Serum or plasma albumin gordy urement (mass/volume)Ordered By: Renard Burgos on 10-03-2022 Albumin [Mass/Vol] 3.0 g/dL 3.2-5.0 [facility] Serum or plasma albumin/glob ulin mass ratioOrdered By: Renard Burgos on 10-03-2022 Albumin/Globulin [Mass ratio] 1.0 {ratio} 0.9-2.4 [facility] Serum or plasma calcium gordy urement (mass/volume)Ordered By: Renard Burgos on 10-03-2022 Calcium [Mass/Vol] 8.4 mg/dL 8.5-10.1 [facility] Serum or plasma cholesterol in HDL measurement (mass/volume)Ordered By: Renard Burgos on 10-03-2022 Cholesterol in HDL [Mass/Vol] 29 mg/dL >40 [facility] Comment on above: The drugs N-Acetylcy steine and Metamizole may falsely depress this assay. Reference Range HDL <40 mg/dL Low HDL Cholesterol HDL >or= 60 mg/dL High HDL Cholesterol Serum or plasma cholesterol in VLDL measurement (mass/volume)Ordered By: Renard Burgos on 10-03-2022 Cholesterol in VLDL [Mass/Vol] 42 mg/dL 5-40 [facility] Serum or plasma creatinine m easurement (mass/volume)Ordered By: Renard Burgos on 10-03-2022 Creatinine [Mass/Vol] 0.63 mg/dL 0.70-1.30 [facility] [place] Comment on above: The validity of the calculated GFR & GFRAA in patients over 70 years has not been determined. Clinical correlation is essential. Serum or plasma low density lipoprotein (LDL) cholesterol measurement (mass/volume)Ordered By: Renard Burgos on 10-03-2022 Cholesterol in LDL [Mass/Vol] 58 mg/dL 0-130 [facility] Serum or plasma urea nitroge n measurement (mass/volume)Ordered By: Renard Burgos on 10-03-2022 Urea nitrogen [Mass/Vol] 16 mg/dL 7-18 [facility] Thin prep Papanicolaou smear with manual screeningOrdered By: Renard Burgos on 10-03-2022 Thin prep Papanicolaou smear with manual screening 13 U/L 15-37 [facility] Thin prep Papanicolaou smear with manual screening 0 5-15 [facility] Absolute lymphocyte countOrd ered By: Renard Burgos on 09-19-2022 Lymphocytes Auto (Unsp spec) [#/Vol] 1.59 10*3/uL 0.83-4.51 [facility] Basophil percentageOrdered B y: Renard Burgos on 09-19-2022 Basophils/100 WBC (Bld) 0.5 % 0-1 [facility] Eosinophils/100 WBC (Bld) 0.3 % 0-5 [facility] Neutrophils (Bld) [#/Vol] 7.4 10*3/uL 2.0-7.7 [facility] Neutrophils/100 WBC (Bld) 75.0 % 47-70 [facility] WBC (Bld) [#/Vol] 9.9 10*3/uL 4.4-11.0 [facility] Blood erythrocytes count (nu mber/volume)Ordered By: Renard Burgos on 09-19-2022 RBC (Bld) [#/Vol] 4.46 10*6/uL 4.6-6.2 [facility] Blood hemoglobin measurement (mass/volume)Ordered By: Renard Burgos on 09-19-2022 Hemoglobin (Bld) [Mass/Vol] 13.5 g/dL 13.0-16.5 [facility] Blood lymphocytes/100 leukoc ytesOrdered By: Renard Burgos on 09-19-2022 Lymphocytes/100 WBC (Bld) 16.1 % 19-41 [facility] Blood monocytes/100 leukocyt esOrdered By: Renard Burgos on 09-19-2022 Monocytes/100 WBC (Bld) 7.6 % 0-10 [facility] Blood platelet mean volumeOr dered By: Renard Burgos on 09-19-2022 Platelet mean volume (Bld) [Entitic vol] 10.8 fL 6.2-12.0 [facility] Determination of erythrocyte mean corpuscular volume (MCV)Ordered By: Renard Burgos on 09-19-2022 MCV (RBC) [Entitic vol] 92.2 fL 80-94 [facility] Hematocrit Auto (Bld) [Volum e fraction]Ordered By: Renard Burgos on 09-19-2022 Hematocrit (Bld) [Volume fraction] 41.1 % 40-54 [facility] Laboratory - Hematology and Cell countsOrdered By: Renard Burgos on 09-19-2022 Erythrocyte distribution width (RBC) [Entitic vol] 41.2 fL 35.1-43.9 [facility] Erythrocyte distribution width (RBC) [Ratio] 12.3 % 11.6-14.6 [facility] Immature granulocytes/100 WBC (Bld) 0.500 % 0.0-0.9 [facility] Comment on above: IG% - Immature Granu locytes (promyelocytes, myelocytes and metamyelocytes) > 1% indicates that a LEFT SHIFT is Present. MCH (RBC) [Entitic mass] 30.3 pg 27.0-32.0 [facility] Nucleated RBC/100 WBC (Bld) [Ratio] 0 % 0-5 [facility] MCHC Auto (RBC) [Mass/Vol]Or dered By: Renard Burgos on 09-19-2022 MCHC (RBC) [Mass/Vol] 32.8 g/dL 32-36 [facility] [place] Platelets bldOrdered By: Lyubov Burgos on 09-19-2022 Platelets (Bld) [#/Vol] 245 10*3/uL 150-450 [facility] Absolute lymphocyte countOrd ered By: Renard Burgos on 09-12-2022 Lymphocytes Auto (Unsp spec) [#/Vol] 2.11 10*3/uL 0.83-4.51 [facility] Basophil percentageOrdered B y: Renard Burgos on 09-12-2022 Basophils/100 WBC (Bld) 0.5 % 0-1 [facility] Eosinophils/100 WBC (Bld) 0.7 % 0-5 [facility] Neutrophils (Bld) [#/Vol] 4.7 10*3/uL 2.0-7.7 [facility] Neutrophils/100 WBC (Bld) 63.6 % 47-70 [facility] WBC (Bld) [#/Vol] 7.3 10*3/uL 4.4-11.0 [facility] Blood erythrocytes count (nu mber/volume)Ordered By: Renard Burgos on 09-12-2022 RBC (Bld) [#/Vol] 4.40 10*6/uL 4.6-6.2 [facility] Blood hemoglobin measurement (mass/volume)Ordered By: Renard Burgos on 09-12-2022 Hemoglobin (Bld) [Mass/Vol] 13.5 g/dL 13.0-16.5 [facility] Blood lymphocytes/100 leukoc ytesOrdered By: Renard Burgos on 09-12-2022 Lymphocytes/100 WBC (Bld) 28.8 % 19-41 [facility] Blood monocytes/100 leukocyt esOrdered By: Renard Burgos on 09-12-2022 Monocytes/100 WBC (Bld) 6.1 % 0-10 [facility] Blood platelet mean volumeOr dered By: Renard Burgos on 09-12-2022 Platelet mean volume (Bld) [Entitic vol] 10.7 fL 6.2-12.0 [facility] Determination of erythrocyte mean corpuscular volume (MCV)Ordered By: Renard Burgos on 09-12-2022 MCV (RBC) [Entitic vol] 91.4 fL 80-94 [facility] Hematocrit Auto (Bld) [Volum e fraction]Ordered By: Renard Burgos on 09-12-2022 Hematocrit (Bld) [Volume fraction] 40.2 % 40-54 [facility] Laboratory - Hematology and Cell countsOrdered By: Renard Burgos on 09-12-2022 Erythrocyte distribution width (RBC) [Entitic vol] 41.3 fL 35.1-43.9 [facility] Erythrocyte distribution width (RBC) [Ratio] 12.5 % 11.6-14.6 [facility] Immature granulocytes/100 WBC (Bld) 0.300 % 0.0-0.9 [facility] Comment on above: IG% - Immature Granu locytes (promyelocytes, myelocytes and metamyelocytes) > 1% indicates that a LEFT SHIFT is Present. MCH (RBC) [Entitic mass] 30.7 pg 27.0-32.0 [facility] Nucleated RBC/100 WBC (Bld) [Ratio] 0 % 0-5 [facility] MCHC Auto (RBC) [Mass/Vol]Or dered By: Renard Burgos on 09-12-2022 MCHC (RBC) [Mass/Vol] 33.6 g/dL 32-36 [facility] [place] Platelets bldOrdered By: Lyubov Burgos on 09-12-2022 Platelets (Bld) [#/Vol] 197 10*3/uL 150-450 [facility] Absolute lymphocyte countOrd ered By: Renard Burgos on 09-05-2022 Lymphocytes Auto (Unsp spec) [#/Vol] 1.94 10*3/uL 0.83-4.51 [facility] Basophil percentageOrdered B y: Renard Burgos on 09-05-2022 Basophils/100 WBC (Bld) 0.5 % 0-1 [facility] Cholesterol [Mass/Vol] 136 mg/dL <200 [facility] Comment on above: <200 mg/dL Desirable 200-240 mg/dL Borderline >240 mg/dL High Risk Eosinophils/100 WBC (Bld) 0.4 % 0-5 [facility] Neutrophils (Bld) [#/Vol] 5.4 10*3/uL 2.0-7.7 [facility] Neutrophils/100 WBC (Bld) 67.5 % 47-70 [facility] Triglyceride [Mass/Vol] 304 mg/dL <199 [facility] Comment on above: The drugs N-Acetylcy steine and Metamizole may falsely depress this assay.Serum Triglycerides Reference Interval Normal <150 mg/dL Borderline high 150 - 199 mg/dL High 200 - 499 mg/dL Very High > or = 500 mg/dL WBC (Bld) [#/Vol] 7.9 10*3/uL 4.4-11.0 [facility] Blood erythrocytes count (nu mber/volume)Ordered By: Renard Burgos on 09-05-2022 RBC (Bld) [#/Vol] 4.28 10*6/uL 4.6-6.2 [facility] Blood hemoglobin measurement (mass/volume)Ordered By: Renard Burgos on 09-05-2022 Hemoglobin (Bld) [Mass/Vol] 12.9 g/dL 13.0-16.5 [facility] Blood lymphocytes/100 leukoc ytesOrdered By: Renard Burgos on 09-05-2022 Lymphocytes/100 WBC (Bld) 24.5 % 19-41 [facility] Blood monocytes/100 leukocyt esOrdered By: Renard Burgos on 09-05-2022 Monocytes/100 WBC (Bld) 6.6 % 0-10 [facility] Blood platelet mean volumeOr dered By: Renard Burgos on 09-05-2022 Platelet mean volume (Bld) [Entitic vol] 10.7 fL 6.2-12.0 [facility] Determination of erythrocyte mean corpuscular volume (MCV)Ordered By: Renard Burgos on 09-05-2022 MCV (RBC) [Entitic vol] 91.4 fL 80-94 [facility] Hematocrit Auto (Bld) [Volum e fraction]Ordered By: Renard Burgos on 09-05-2022 Hematocrit (Bld) [Volume fraction] 39.1 % 40-54 [facility] Laboratory - Hematology and Cell countsOrdered By: Renard Burgos on 09-05-2022 Erythrocyte distribution width (RBC) [Entitic vol] 41.5 fL 35.1-43.9 [facility] Erythrocyte distribution width (RBC) [Ratio] 12.6 % 11.6-14.6 [facility] Immature granulocytes/100 WBC (Bld) 0.500 % 0.0-0.9 [facility] Comment on above: IG% - Immature Granu locytes (promyelocytes, myelocytes and metamyelocytes) > 1% indicates that a LEFT SHIFT is Present. MCH (RBC) [Entitic mass] 30.1 pg 27.0-32.0 [facility] Nucleated RBC/100 WBC (Bld) [Ratio] 0 % 0-5 [facility] MCHC Auto (RBC) [Mass/Vol]Or dered By: Renard Burgos on 09-05-2022 MCHC (RBC) [Mass/Vol] 33.0 g/dL 32-36 [facility] [place] Platelets bldOrdered By: Lyubov Burgos on 09-05-2022 Platelets (Bld) [#/Vol] 200 10*3/uL 150-450 [facility] Serum or plasma cholesterol in HDL measurement (mass/volume)Ordered By: Renard Burgos on 09-05-2022 Cholesterol in HDL [Mass/Vol] 24 mg/dL >40 [facility] [facility] Comment on above: The drugs N-Acetylcy steine and Metamizole may falsely depress this assay. Reference Range HDL <40 mg/dL Low HDL Cholesterol HDL >or= 60 mg/dL High HDL Cholesterol Serum or plasma cholesterol in VLDL measurement (mass/volume)Ordered By: Renard Burgos on 09-05-2022 Cholesterol in VLDL [Mass/Vol] 61 mg/dL 5-40 [facility] Serum or plasma low density lipoprotein (LDL) cholesterol measurement (mass/volume)Ordered By: Renard Burgos on 09-05-2022 Cholesterol in LDL [Mass/Vol] 51 mg/dL 0-130 [facility] Absolute lymphocyte countOrd ered By: Renard Burgos on 08-29-2022 Lymphocytes Auto (Unsp spec) [#/Vol] 1.91 10*3/uL 0.83-4.51 [facility] Basophil percentageOrdered B y: Renard Burgos on 08-29-2022 Basophils/100 WBC (Bld) 0.4 % 0-1 [facility] Eosinophils/100 WBC (Bld) 0.4 % 0-5 [facility] Neutrophils (Bld) [#/Vol] 4.8 10*3/uL 2.0-7.7 [facility] Neutrophils/100 WBC (Bld) 66.0 % 47-70 [facility] WBC (Bld) [#/Vol] 7.3 10*3/uL 4.4-11.0 [facility] Blood erythrocytes count (nu mber/volume)Ordered By: Renard Burgos on 08-29-2022 RBC (Bld) [#/Vol] 4.43 10*6/uL 4.6-6.2 [facility] Blood hemoglobin measurement (mass/volume)Ordered By: Renard Burgos on 08-29-2022 Hemoglobin (Bld) [Mass/Vol] 13.6 g/dL 13.0-16.5 [facility] Blood lymphocytes/100 leukoc ytesOrdered By: Renard Burgos on 08-29-2022 Lymphocytes/100 WBC (Bld) 26.2 % 19-41 [facility] Blood monocytes/100 leukocyt esOrdered By: Renard Burgos on 08-29-2022 Monocytes/100 WBC (Bld) 6.6 % 0-10 [facility] Blood platelet mean volumeOr dered By: Renard Burgos on 08-29-2022 Platelet mean volume (Bld) [Entitic vol] 11.0 fL 6.2-12.0 [facility] Determination of erythrocyte mean corpuscular volume (MCV)Ordered By: Renard Burgos on 08-29-2022 MCV (RBC) [Entitic vol] 92.1 fL 80-94 [facility] Hematocrit Auto (Bld) [Volum e fraction]Ordered By: Renard Burgos on 08-29-2022 Hematocrit (Bld) [Volume fraction] 40.8 % 40-54 [facility] Laboratory - Hematology and Cell countsOrdered By: Renard Burgos on 08-29-2022 Erythrocyte distribution width (RBC) [Entitic vol] 42.0 fL 35.1-43.9 [facility] Erythrocyte distribution width (RBC) [Ratio] 12.4 % 11.6-14.6 [facility] Immature granulocytes/100 WBC (Bld) 0.400 % 0.0-0.9 [facility] Comment on above: IG% - Immature Granu locytes (promyelocytes, myelocytes and metamyelocytes) > 1% indicates that a LEFT SHIFT is Present. MCH (RBC) [Entitic mass] 30.7 pg 27.0-32.0 [facility] Nucleated RBC/100 WBC (Bld) [Ratio] 0 % 0-5 [facility] MCHC Auto (RBC) [Mass/Vol]Or dered By: Renard Burgos on 08-29-2022 MCHC (RBC) [Mass/Vol] 33.3 g/dL 32-36 [facility] [place] Platelets bldOrdered By: Lyubov Burgos on 08-29-2022 Platelets (Bld) [#/Vol] 195 10*3/uL 150-450 [facility] Absolute lymphocyte countOrd ered By: Renard Burgos on 08-22-2022 Lymphocytes Auto (Unsp spec) [#/Vol] 1.86 10*3/uL 0.83-4.51 [facility] Basophil percentageOrdered B y: Renard Burgos on 08-22-2022 Basophils/100 WBC (Bld) 0.4 % 0-1 [facility] Eosinophils/100 WBC (Bld) 0.4 % 0-5 [facility] Neutrophils (Bld) [#/Vol] 6.5 10*3/uL 2.0-7.7 [facility] Neutrophils/100 WBC (Bld) 70.5 % 47-70 [facility] WBC (Bld) [#/Vol] 9.3 10*3/uL 4.4-11.0 [facility] Blood erythrocytes count (nu mber/volume)Ordered By: Renard Burgos on 08-22-2022 RBC (Bld) [#/Vol] 4.55 10*6/uL 4.6-6.2 [facility] Blood hemoglobin measurement (mass/volume)Ordered By: Renard Burgos on 08-22-2022 Hemoglobin (Bld) [Mass/Vol] 14.1 g/dL 13.0-16.5 [facility] Blood lymphocytes/100 leukoc ytesOrdered By: Renard Burgos on 08-22-2022 Lymphocytes/100 WBC (Bld) 20.1 % 19-41 [facility] Blood monocytes/100 leukocyt esOrdered By: Renard Burgos on 08-22-2022 Monocytes/100 WBC (Bld) 8.3 % 0-10 [facility] Blood platelet mean volumeOr dered By: Renard Burgos on 08-22-2022 Platelet mean volume (Bld) [Entitic vol] 10.8 fL 6.2-12.0 [facility] Determination of erythrocyte mean corpuscular volume (MCV)Ordered By: Renard Burgos on 08-22-2022 MCV (RBC) [Entitic vol] 91.9 fL 80-94 [facility] Hematocrit Auto (Bld) [Volum e fraction]Ordered By: Renard Burgos on 08-22-2022 Hematocrit (Bld) [Volume fraction] 41.8 % 40-54 [facility] Laboratory - Hematology and Cell countsOrdered By: Renard Burgos on 08-22-2022 Erythrocyte distribution width (RBC) [Entitic vol] 42.5 fL 35.1-43.9 [facility] Erythrocyte distribution width (RBC) [Ratio] 12.6 % 11.6-14.6 [facility] Immature granulocytes/100 WBC (Bld) 0.300 % 0.0-0.9 [facility] Comment on above: IG% - Immature Granu locytes (promyelocytes, myelocytes and metamyelocytes) > 1% indicates that a LEFT SHIFT is Present. MCH (RBC) [Entitic mass] 31.0 pg 27.0-32.0 [facility] Nucleated RBC/100 WBC (Bld) [Ratio] 0 % 0-5 [facility] MCHC Auto (RBC) [Mass/Vol]Or dered By: Renard Burgos on 08-22-2022 MCHC (RBC) [Mass/Vol] 33.7 g/dL 32-36 [facility] Platelets bldOrdered By: Lyubov Burgos on 08-22-2022 Platelets (Bld) [#/Vol] 197 10*3/uL 150-450 [facility] Absolute lymphocyte countOrd ered By: Renard Burgos on 08-15-2022 Lymphocytes Auto (Unsp spec) [#/Vol] 1.88 10*3/uL 0.83-4.51 [facility] Basophil percentageOrdered B y: Renard Burgos on 08-15-2022 Basophils/100 WBC (Bld) 0.5 % 0-1 [facility] Eosinophils/100 WBC (Bld) 0.5 % 0-5 [facility] Neutrophils (Bld) [#/Vol] 5.1 10*3/uL 2.0-7.7 [facility] Neutrophils/100 WBC (Bld) 65.0 % 47-70 [facility] WBC (Bld) [#/Vol] 7.9 10*3/uL 4.4-11.0 [facility] Blood erythrocytes count (nu mber/volume)Ordered By: Renard Burgos on 08-15-2022 RBC (Bld) [#/Vol] 4.48 10*6/uL 4.6-6.2 [facility] Blood hemoglobin measurement (mass/volume)Ordered By: Renard Burgos on 08-15-2022 Hemoglobin (Bld) [Mass/Vol] 13.7 g/dL 13.0-16.5 [facility] Blood lymphocytes/100 leukoc ytesOrdered By: Renard Burgos on 08-15-2022 Lymphocytes/100 WBC (Bld) 23.9 % 19-41 [facility] Blood monocytes/100 leukocyt esOrdered By: Renard Burgos on 08-15-2022 Monocytes/100 WBC (Bld) 9.8 % 0-10 [facility] Blood platelet mean volumeOr dered By: Renard Burgos on 08-15-2022 Platelet mean volume (Bld) [Entitic vol] 10.7 fL 6.2-12.0 [facility] Determination of erythrocyte mean corpuscular volume (MCV)Ordered By: Renard Burgos on 08-15-2022 MCV (RBC) [Entitic vol] 91.1 fL 80-94 [facility] Hematocrit Auto (Bld) [Volum e fraction]Ordered By: Renard Burgos on 08-15-2022 Hematocrit (Bld) [Volume fraction] 40.8 % 40-54 [facility] Laboratory - Hematology and Cell countsOrdered By: Renard Burgos on 08-15-2022 Erythrocyte distribution width (RBC) [Entitic vol] 41.0 fL 35.1-43.9 [facility] Erythrocyte distribution width (RBC) [Ratio] 12.4 % 11.6-14.6 [facility] Immature granulocytes/100 WBC (Bld) 0.300 % 0.0-0.9 [facility] Comment on above: IG% - Immature Granu locytes (promyelocytes, myelocytes and metamyelocytes) > 1% indicates that a LEFT SHIFT is Present. MCH (RBC) [Entitic mass] 30.6 pg 27.0-32.0 [facility] Nucleated RBC/100 WBC (Bld) [Ratio] 0 % 0-5 [facility] MCHC Auto (RBC) [Mass/Vol]Or dered By: Renard Burgos on 08-15-2022 MCHC (RBC) [Mass/Vol] 33.6 g/dL 32-36 [facility] Platelets bldOrdered By: Lyubov Burgos on 08-15-2022 Platelets (Bld) [#/Vol] 212 10*3/uL 150-450 [facility] Absolute lymphocyte countOrd ered By: Renard Burgos on 08-08-2022 Lymphocytes Auto (Unsp spec) [#/Vol] 1.96 10*3/uL 0.83-4.51 [facility] Basophil percentageOrdered B y: Renard Burgos on 08-08-2022 Basophils/100 WBC (Bld) 0.5 % 0-1 [facility] Eosinophils/100 WBC (Bld) 0.5 % 0-5 [facility] Neutrophils (Bld) [#/Vol] 4.7 10*3/uL 2.0-7.7 [facility] Neutrophils/100 WBC (Bld) 64.1 % 47-70 [facility] WBC (Bld) [#/Vol] 7.4 10*3/uL 4.4-11.0 [facility] Blood erythrocytes count (nu mber/volume)Ordered By: Renard Burgos on 08-08-2022 RBC (Bld) [#/Vol] 4.44 10*6/uL 4.6-6.2 [facility] Blood hemoglobin measurement (mass/volume)Ordered By: Renard Burgos on 08-08-2022 Hemoglobin (Bld) [Mass/Vol] 13.6 g/dL 13.0-16.5 [facility] Blood lymphocytes/100 leukoc ytesOrdered By: Renard Burgos on 08-08-2022 Lymphocytes/100 WBC (Bld) 26.5 % 19-41 [facility] Blood monocytes/100 leukocyt esOrdered By: Renard Burgos on 08-08-2022 Monocytes/100 WBC (Bld) 8.1 % 0-10 [facility] Blood platelet mean volumeOr dered By: Renard Burgos on 08-08-2022 Platelet mean volume (Bld) [Entitic vol] 10.8 fL 6.2-12.0 [facility] Determination of erythrocyte mean corpuscular volume (MCV)Ordered By: Renard Burgos on 08-08-2022 MCV (RBC) [Entitic vol] 91.7 fL 80-94 [facility] Hematocrit Auto (Bld) [Volum e fraction]Ordered By: Renard Burgos on 08-08-2022 Hematocrit (Bld) [Volume fraction] 40.7 % 40-54 [facility] Laboratory - Hematology and Cell countsOrdered By: Renard Burgos on 08-08-2022 Erythrocyte distribution width (RBC) [Entitic vol] 42.7 fL 35.1-43.9 [facility] Erythrocyte distribution width (RBC) [Ratio] 12.6 % 11.6-14.6 [facility] Immature granulocytes/100 WBC (Bld) 0.300 % 0.0-0.9 [facility] Comment on above: IG% - Immature Granu locytes (promyelocytes, myelocytes and metamyelocytes) > 1% indicates that a LEFT SHIFT is Present. MCH (RBC) [Entitic mass] 30.6 pg 27.0-32.0 [facility] Nucleated RBC/100 WBC (Bld) [Ratio] 0 % 0-5 [facility] MCHC Auto (RBC) [Mass/Vol]Or dered By: Renard Burgos on 08-08-2022 MCHC (RBC) [Mass/Vol] 33.4 g/dL 32-36 [facility] Platelets bldOrdered By: Lyubov Burgos on 08-08-2022 Platelets (Bld) [#/Vol] 187 10*3/uL 150-450 [facility] Absolute lymphocyte countOrd ered By: Renard Burgos on 08-01-2022 Lymphocytes Auto (Unsp spec) [#/Vol] 2.09 10*3/uL 0.83-4.51 [facility] Basophil percentageOrdered B y: Renard Burgos on 08-01-2022 Basophils/100 WBC (Bld) 0.4 % 0-1 [facility] Eosinophils/100 WBC (Bld) 0.4 % 0-5 [facility] Neutrophils (Bld) [#/Vol] 6.6 10*3/uL 2.0-7.7 [facility] Neutrophils/100 WBC (Bld) 69.1 % 47-70 [facility] WBC (Bld) [#/Vol] 9.5 10*3/uL 4.4-11.0 [facility] Blood erythrocytes count (nu mber/volume)Ordered By: Renard Burgos on 08-01-2022 RBC (Bld) [#/Vol] 4.48 10*6/uL 4.6-6.2 [facility] Blood hemoglobin measurement (mass/volume)Ordered By: Renard Burgos on 08-01-2022 Hemoglobin (Bld) [Mass/Vol] 13.9 g/dL 13.0-16.5 [facility] Blood lymphocytes/100 leukoc ytesOrdered By: Renard Burgos on 08-01-2022 Lymphocytes/100 WBC (Bld) 21.9 % 19-41 [facility] Blood monocytes/100 leukocyt esOrdered By: Renard Burgos on 08-01-2022 Monocytes/100 WBC (Bld) 7.9 % 0-10 [facility] Blood platelet mean volumeOr dered By: Renard Burgos on 08-01-2022 Platelet mean volume (Bld) [Entitic vol] 11.0 fL 6.2-12.0 [facility] Determination of erythrocyte mean corpuscular volume (MCV)Ordered By: Renard Burgos on 08-01-2022 MCV (RBC) [Entitic vol] 91.5 fL 80-94 [facility] Hematocrit Auto (Bld) [Volum e fraction]Ordered By: Renard Burgos on 08-01-2022 Hematocrit (Bld) [Volume fraction] 41.0 % 40-54 [facility] Laboratory - Hematology and Cell countsOrdered By: Renard Burgos on 08-01-2022 Erythrocyte distribution width (RBC) [Entitic vol] 41.6 fL 35.1-43.9 [facility] Erythrocyte distribution width (RBC) [Ratio] 12.5 % 11.6-14.6 [facility] Immature granulocytes/100 WBC (Bld) 0.300 % 0.0-0.9 [facility] Comment on above: IG% - Immature Granu locytes (promyelocytes, myelocytes and metamyelocytes) > 1% indicates that a LEFT SHIFT is Present. MCH (RBC) [Entitic mass] 31.0 pg 27.0-32.0 [facility] Nucleated RBC/100 WBC (Bld) [Ratio] 0 % 0-5 [facility] MCHC Auto (RBC) [Mass/Vol]Or dered By: Renard Burgos on 08-01-2022 MCHC (RBC) [Mass/Vol] 33.9 g/dL 32-36 [facility] Platelets bldOrdered By: Pet er Loretta on 08-01-2022 Platelets (Bld) [#/Vol] 208 10*3/uL 150-450 [facility] Absolute lymphocyte countOrd ered By: Renard Burgos on 07-25-2022 Lymphocytes Auto (Unsp spec) [#/Vol] 2.16 10*3/uL 0.83-4.51 [facility] Basophil percentageOrdered B y: Renard Burgos on 07-25-2022 Basophils/100 WBC (Bld) 0.6 % 0-1 [facility] Eosinophils/100 WBC (Bld) 0.6 % 0-5 [facility] Neutrophils (Bld) [#/Vol] 5.4 10*3/uL 2.0-7.7 [facility] Neutrophils/100 WBC (Bld) 64.5 % 47-70 [facility] WBC (Bld) [#/Vol] 8.4 10*3/uL 4.4-11.0 [facility] Blood erythrocytes count (nu mber/volume)Ordered By: Renard Burgos on 07-25-2022 RBC (Bld) [#/Vol] 4.45 10*6/uL 4.6-6.2 [facility] Blood hemoglobin measurement (mass/volume)Ordered By: Renard Burgos on 07-25-2022 Hemoglobin (Bld) [Mass/Vol] 13.4 g/dL 13.0-16.5 [facility] Blood lymphocytes/100 leukoc ytesOrdered By: Renard Burgos on 07-25-2022 Lymphocytes/100 WBC (Bld) 25.7 % 19-41 [facility] Blood monocytes/100 leukocyt esOrdered By: Renard Burgos on 07-25-2022 Monocytes/100 WBC (Bld) 8.4 % 0-10 [facility] Blood platelet mean volumeOr dered By: Renard Burgos on 07-25-2022 Platelet mean volume (Bld) [Entitic vol] 11.0 fL 6.2-12.0 [facility] Determination of erythrocyte mean corpuscular volume (MCV)Ordered By: Renard Burgos on 07-25-2022 MCV (RBC) [Entitic vol] 92.8 fL 80-94 [facility] Hematocrit Auto (Bld) [Volum e fraction]Ordered By: Renard Burgos on 07-25-2022 Hematocrit (Bld) [Volume fraction] 41.3 % 40-54 [facility] - Hematology and Cell countsOrdered By: Renard Burgos on 07-25-2022 Erythrocyte distribution width (RBC) [Entitic vol] 42.5 fL 35.1-43.9 [facility] Erythrocyte distribution width (RBC) [Ratio] 12.5 % 11.6-14.6 [facility] Immature granulocytes/100 WBC (Bld) 0.200 % 0.0-0.9 [facility] Comment on above: IG% - Immature Granu locytes (promyelocytes, myelocytes and metamyelocytes) > 1% indicates that a LEFT SHIFT is Present. MCH (RBC) [Entitic mass] 30.1 pg 27.0-32.0 [facility] Nucleated RBC/100 WBC (Bld) [Ratio] 0 % 0-5 [facility] MCHC Auto (RBC) [Mass/Vol]Or dered By: Renard Burgos on 07-25-2022 MCHC (RBC) [Mass/Vol] 32.4 g/dL 32-36 [facility] Platelets bldOrdered By: Lyubov Burgos on 07-25-2022 Platelets (Bld) [#/Vol] 200 10*3/uL 150-450 [facility] No Panel InformationOrdered By: Renard Burgos on 07-19-2022 Vitamin D 25-Hydroxy 34.2 ng/mL [facility] [place] Comment on above: Vitamin D 25(OH) Sta tus Range Deficiency <20 ng/mL (50nmol/L) Insufficiency 20 - 30 ng/mL (50 - 75 nmol/L) Sufficiency 30 - 100 ng/mL (75 - 250 nmol/L) Toxicity >100 ng/mL (>250 nmol/L) Absolute lymphocyte countOrd ered By: Renard Burgos on 07-18-2022 Lymphocytes Auto (Unsp spec) [#/Vol] 2.48 10*3/uL 0.83-4.51 [facility] Basophil percentageOrdered B y: Renard Burgos on 07-18-2022 Basophils/100 WBC (Bld) 0.5 % 0-1 [facility] Eosinophils/100 WBC (Bld) 0.6 % 0-5 [facility] Neutrophils (Bld) [#/Vol] 5.9 10*3/uL 2.0-7.7 [facility] Neutrophils/100 WBC (Bld) 61.6 % 47-70 [facility] WBC (Bld) [#/Vol] 9.6 10*3/uL 4.4-11.0 [facility] Blood erythrocytes count (nu mber/volume)Ordered By: Renard Burgos on 07-18-2022 RBC (Bld) [#/Vol] 4.56 10*6/uL 4.6-6.2 [facility] Blood hemoglobin measurement (mass/volume)Ordered By: Renard Burgos on 07-18-2022 Hemoglobin (Bld) [Mass/Vol] 13.9 g/dL 13.0-16.5 [facility] Blood lymphocytes/100 leukoc ytesOrdered By: Renard Burgos on 07-18-2022 Lymphocytes/100 WBC (Bld) 25.9 % 19-41 [facility] Blood monocytes/100 leukocyt esOrdered By: Renard Burgos on 07-18-2022 Monocytes/100 WBC (Bld) 11.0 % 0-10 [facility] Blood platelet mean volumeOr dered By: Renard Burgos on 07-18-2022 Platelet mean volume (Bld) [Entitic vol] 11.3 fL 6.2-12.0 [facility] Determination of erythrocyte mean corpuscular volume (MCV)Ordered By: Renard Burgos on 07-18-2022 MCV (RBC) [Entitic vol] 93.9 fL 80-94 [facility] Hematocrit Auto (Bld) [Volum e fraction]Ordered By: Renard Burgos on 07-18-2022 Hematocrit (Bld) [Volume fraction] 42.8 % 40-54 [facility] - Hematology and Cell countsOrdered By: Renard Burgos on 07-18-2022 Erythrocyte distribution width (RBC) [Entitic vol] 44.0 fL 35.1-43.9 [facility] Erythrocyte distribution width (RBC) [Ratio] 12.8 % 11.6-14.6 [facility] Immature granulocytes/100 WBC (Bld) 0.400 % 0.0-0.9 [facility] Comment on above: IG% - Immature Granu locytes (promyelocytes, myelocytes and metamyelocytes) > 1% indicates that a LEFT SHIFT is Present. MCH (RBC) [Entitic mass] 30.5 pg 27.0-32.0 [facility] Nucleated RBC/100 WBC (Bld) [Ratio] 0 % 0-5 [facility] MCHC Auto (RBC) [Mass/Vol]Or dered By: Renard Burgos on 07-18-2022 MCHC (RBC) [Mass/Vol] 32.5 g/dL 32-36 [facility] Platelets bldOrdered By: Lyubov Burgos on 07-18-2022 Platelets (Bld) [#/Vol] 207 10*3/uL 150-450 [facility] Absolute lymphocyte countOrd ered By: Renard Burgos on 07-11-2022 Lymphocytes Auto (Unsp spec) [#/Vol] 2.37 10*3/uL 0.83-4.51 [facility] Basophil percentageOrdered B y: Renard Burgos on 07-11-2022 Basophils/100 WBC (Bld) 0.6 % 0-1 [facility] Eosinophils/100 WBC (Bld) 0.5 % 0-5 [facility] Neutrophils (Bld) [#/Vol] 5.3 10*3/uL 2.0-7.7 [facility] Neutrophils/100 WBC (Bld) 61.8 % 47-70 [facility] WBC (Bld) [#/Vol] 8.5 10*3/uL 4.4-11.0 [facility] Blood erythrocytes count (nu mber/volume)Ordered By: Renard Burgos on 07-11-2022 RBC (Bld) [#/Vol] 4.83 10*6/uL 4.6-6.2 [facility] Blood hemoglobin measurement (mass/volume)Ordered By: Renard Burgos on 07-11-2022 Hemoglobin (Bld) [Mass/Vol] 14.7 g/dL 13.0-16.5 [facility] Blood lymphocytes/100 leukoc ytesOrdered By: Renard Burgos on 07-11-2022 Lymphocytes/100 WBC (Bld) 27.8 % 19-41 [facility] Blood monocytes/100 leukocyt esOrdered By: Renard Burgos on 07-11-2022 Monocytes/100 WBC (Bld) 8.8 % 0-10 [facility] Blood platelet mean volumeOr dered By: Renard Burgos on 07-11-2022 Platelet mean volume (Bld) [Entitic vol] 10.6 fL 6.2-12.0 [facility] Determination of erythrocyte mean corpuscular volume (MCV)Ordered By: Renard Burgos on 07-11-2022 MCV (RBC) [Entitic vol] 90.7 fL 80-94 [facility] Hematocrit Auto (Bld) [Volum e fraction]Ordered By: Renard Burgos on 07-11-2022 Hematocrit (Bld) [Volume fraction] 43.8 % 40-54 [facility] - Hematology and Cell countsOrdered By: Renard Burgos on 07-11-2022 Erythrocyte distribution width (RBC) [Entitic vol] 41.2 fL 35.1-43.9 [facility] Erythrocyte distribution width (RBC) [Ratio] 12.7 % 11.6-14.6 [facility] Immature granulocytes/100 WBC (Bld) 0.500 % 0.0-0.9 [facility] Comment on above: IG% - Immature Granu locytes (promyelocytes, myelocytes and metamyelocytes) > 1% indicates that a LEFT SHIFT is Present. MCH (RBC) [Entitic mass] 30.4 pg 27.0-32.0 [facility] Nucleated RBC/100 WBC (Bld) [Ratio] 0 % 0-5 [facility] MCHC Auto (RBC) [Mass/Vol]Or dered By: Renard Burgos on 07-11-2022 MCHC (RBC) [Mass/Vol] 33.6 g/dL 32-36 [facility] Platelets bldOrdered By: Lyubov Burgos on 07-11-2022 Platelets (Bld) [#/Vol] 207 10*3/uL 150-450 [facility] Absolute lymphocyte countOrd ered By: Renard Burgos on 07-04-2022 Lymphocytes Auto (Unsp spec) [#/Vol] 1.87 10*3/uL 0.83-4.51 [facility] Basophil percentageOrdered B y: Renard Burgos on 07-04-2022 Basophils/100 WBC (Bld) 0.4 % 0-1 [facility] Eosinophils/100 WBC (Bld) 0.5 % 0-5 [facility] Neutrophils (Bld) [#/Vol] 7.5 10*3/uL 2.0-7.7 [facility] Neutrophils/100 WBC (Bld) 72.8 % 47-70 [facility] WBC (Bld) [#/Vol] 10.3 10*3/uL 4.4-11.0 [facility] Blood erythrocytes count (nu mber/volume)Ordered By: Renard Burgos on 07-04-2022 RBC (Bld) [#/Vol] 4.45 10*6/uL 4.6-6.2 [facility] Blood hemoglobin measurement (mass/volume)Ordered By: Renard Burgos on 07-04-2022 Hemoglobin (Bld) [Mass/Vol] 13.5 g/dL 13.0-16.5 [facility] Blood lymphocytes/100 leukoc ytesOrdered By: Renard Burgos on 07-04-2022 Lymphocytes/100 WBC (Bld) 18.1 % 19-41 [facility] Blood monocytes/100 leukocyt esOrdered By: Renard Burgos on 07-04-2022 Monocytes/100 WBC (Bld) 7.7 % 0-10 [facility] Blood platelet mean volumeOr dered By: Renard Burgos on 07-04-2022 Platelet mean volume (Bld) [Entitic vol] 11.3 fL 6.2-12.0 [facility] Determination of erythrocyte mean corpuscular volume (MCV)Ordered By: Renard Burgos on 07-04-2022 MCV (RBC) [Entitic vol] 93.0 fL 80-94 [facility] Hematocrit Auto (Bld) [Volum e fraction]Ordered By: Renard Burgos on 07-04-2022 Hematocrit (Bld) [Volume fraction] 41.4 % 40-54 [facility] - Hematology and Cell countsOrdered By: Renard Burgos on 07-04-2022 Erythrocyte distribution width (RBC) [Entitic vol] 43.0 fL 35.1-43.9 [facility] Erythrocyte distribution width (RBC) [Ratio] 12.5 % 11.6-14.6 [facility] Immature granulocytes/100 WBC (Bld) 0.500 % 0.0-0.9 [facility] Comment on above: IG% - Immature Granu locytes (promyelocytes, myelocytes and metamyelocytes) > 1% indicates that a LEFT SHIFT is Present. MCH (RBC) [Entitic mass] 30.3 pg 27.0-32.0 [facility] Nucleated RBC/100 WBC (Bld) [Ratio] 0 % 0-5 [facility] MCHC Auto (RBC) [Mass/Vol]Or dered By: Renard Burgos on 07-04-2022 MCHC (RBC) [Mass/Vol] 32.6 g/dL 32-36 [facility] Platelets bldOrdered By: Lyubov Burgos on 07-04-2022 Platelets (Bld) [#/Vol] 211 10*3/uL 150-450 [facility] Absolute lymphocyte countOrd ered By: Renard Burgos on 06-27-2022 Lymphocytes Auto (Unsp spec) [#/Vol] 1.83 10*3/uL 0.83-4.51 [facility] Basophil percentageOrdered B y: Renard Burgos on 06-27-2022 Basophils/100 WBC (Bld) 0.4 % 0-1 [facility] Eosinophils/100 WBC (Bld) 0.5 % 0-5 [facility] Neutrophils (Bld) [#/Vol] 5.0 10*3/uL 2.0-7.7 [facility] Neutrophils/100 WBC (Bld) 67.6 % 47-70 [facility] WBC (Bld) [#/Vol] 7.4 10*3/uL 4.4-11.0 [facility] Blood erythrocytes count (nu mber/volume)Ordered By: Renard Burgos on 06-27-2022 RBC (Bld) [#/Vol] 4.52 10*6/uL 4.6-6.2 [facility] Blood hemoglobin measurement (mass/volume)Ordered By: Renard Burgos on 06-27-2022 Hemoglobin (Bld) [Mass/Vol] 13.9 g/dL 13.0-16.5 [facility] Blood lymphocytes/100 leukoc ytesOrdered By: Renard Burgos on 06-27-2022 Lymphocytes/100 WBC (Bld) 24.7 % 19-41 [facility] Blood monocytes/100 leukocyt esOrdered By: Renard Burgos on 06-27-2022 Monocytes/100 WBC (Bld) 6.4 % 0-10 [facility] Blood platelet mean volumeOr dered By: Renard Burgos on 06-27-2022 Platelet mean volume (Bld) [Entitic vol] 10.7 fL 6.2-12.0 [facility] Determination of erythrocyte mean corpuscular volume (MCV)Ordered By: Renard Burgos on 06-27-2022 MCV (RBC) [Entitic vol] 91.2 fL 80-94 [facility] Hematocrit Auto (Bld) [Volum e fraction]Ordered By: Renard Burgos on 06-27-2022 Hematocrit (Bld) [Volume fraction] 41.2 % 40-54 [facility] Laboratory - Hematology and Cell countsOrdered By: Renard Burgos on 06-27-2022 Erythrocyte distribution width (RBC) [Entitic vol] 41.9 fL 35.1-43.9 [facility] Erythrocyte distribution width (RBC) [Ratio] 12.7 % 11.6-14.6 [facility] Immature granulocytes/100 WBC (Bld) 0.400 % 0.0-0.9 [facility] Comment on above: IG% - Immature Granu locytes (promyelocytes, myelocytes and metamyelocytes) > 1% indicates that a LEFT SHIFT is Present. MCH (RBC) [Entitic mass] 30.8 pg 27.0-32.0 [facility] Nucleated RBC/100 WBC (Bld) [Ratio] 0 % 0-5 [facility] MCHC Auto (RBC) [Mass/Vol]Or dered By: Renard Burgos on 06-27-2022 MCHC (RBC) [Mass/Vol] 33.7 g/dL 32-36 [facility] Platelets bldOrdered By: Pet er Loretta on 06-27-2022 Platelets (Bld) [#/Vol] 200 10*3/uL 150-450 [facility] Absolute lymphocyte countOrd ered By: Renard Burgos on 06-20-2022 Lymphocytes Auto (Unsp spec) [#/Vol] 1.57 10*3/uL 0.83-4.51 [facility] Basophil percentageOrdered B y: Renard Burgos on 06-20-2022 Basophils/100 WBC (Bld) 0.2 % 0-1 [facility] Eosinophils/100 WBC (Bld) 0.2 % 0-5 [facility] Neutrophils (Bld) [#/Vol] 6.5 10*3/uL 2.0-7.7 [facility] Neutrophils/100 WBC (Bld) 74.5 % 47-70 [facility] WBC (Bld) [#/Vol] 8.8 10*3/uL 4.4-11.0 [facility] Blood erythrocytes count (nu mber/volume)Ordered By: Renard Burgos on 06-20-2022 RBC (Bld) [#/Vol] 4.79 10*6/uL 4.6-6.2 [facility] Blood hemoglobin measurement (mass/volume)Ordered By: Renard Burgos on 06-20-2022 Hemoglobin (Bld) [Mass/Vol] 14.6 g/dL 13.0-16.5 [facility] Blood lymphocytes/100 leukoc ytesOrdered By: Renard Burgos on 06-20-2022 Lymphocytes/100 WBC (Bld) 17.8 % 19-41 [facility] Blood monocytes/100 leukocyt esOrdered By: Renard Burgos on 06-20-2022 Monocytes/100 WBC (Bld) 7.0 % 0-10 [facility] Blood platelet mean volumeOr dered By: Renard Burgos on 06-20-2022 Platelet mean volume (Bld) [Entitic vol] 11.1 fL 6.2-12.0 [facility] Determination of erythrocyte mean corpuscular volume (MCV)Ordered By: Renard Burgos on 06-20-2022 MCV (RBC) [Entitic vol] 92.1 fL 80-94 [facility] Hematocrit Auto (Bld) [Volum e fraction]Ordered By: Renard Burgos on 06-20-2022 Hematocrit (Bld) [Volume fraction] 44.1 % 40-54 [facility] Laboratory - Hematology and Cell countsOrdered By: Renard Burgos on 06-20-2022 Erythrocyte distribution width (RBC) [Entitic vol] 42.4 fL 35.1-43.9 [facility] Erythrocyte distribution width (RBC) [Ratio] 12.6 % 11.6-14.6 [facility] Immature granulocytes/100 WBC (Bld) 0.300 % 0.0-0.9 [facility] Comment on above: IG% - Immature Granu locytes (promyelocytes, myelocytes and metamyelocytes) > 1% indicates that a LEFT SHIFT is Present. MCH (RBC) [Entitic mass] 30.5 pg 27.0-32.0 [facility] Nucleated RBC/100 WBC (Bld) [Ratio] 0 % 0-5 [facility] MCHC Auto (RBC) [Mass/Vol]Or dered By: Renard Burgos on 06-20-2022 MCHC (RBC) [Mass/Vol] 33.1 g/dL 32-36 [facility] Platelets bldOrdered By: Lyubov Burgos on 06-20-2022 Platelets (Bld) [#/Vol] 207 10*3/uL 150-450 [facility] Absolute lymphocyte countOrd ered By: Renard Burgos on 06-13-2022 Lymphocytes Auto (Unsp spec) [#/Vol] 2.28 10*3/uL 0.83-4.51 [facility] Basophil percentageOrdered B y: Renard Burgos on 06-13-2022 Basophils/100 WBC (Bld) 0.5 % 0-1 [facility] Eosinophils/100 WBC (Bld) 0.4 % 0-5 [facility] Neutrophils (Bld) [#/Vol] 6.0 10*3/uL 2.0-7.7 [facility] Neutrophils/100 WBC (Bld) 65.6 % 47-70 [facility] WBC (Bld) [#/Vol] 9.2 10*3/uL 4.4-11.0 [facility] Blood erythrocytes count (nu mber/volume)Ordered By: Renard Burgos on 06-13-2022 RBC (Bld) [#/Vol] 4.55 10*6/uL 4.6-6.2 [facility] Blood hemoglobin measurement (mass/volume)Ordered By: Renard Burgos on 06-13-2022 Hemoglobin (Bld) [Mass/Vol] 13.7 g/dL 13.0-16.5 [facility] Blood lymphocytes/100 leukoc ytesOrdered By: Renard Burgos on 06-13-2022 Lymphocytes/100 WBC (Bld) 24.9 % 19-41 [facility] Blood monocytes/100 leukocyt esOrdered By: Renard Burgos on 06-13-2022 Monocytes/100 WBC (Bld) 8.2 % 0-10 [facility] Blood platelet mean volumeOr dered By: Renard Burgos on 06-13-2022 Platelet mean volume (Bld) [Entitic vol] 10.9 fL 6.2-12.0 [facility] Determination of erythrocyte mean corpuscular volume (MCV)Ordered By: Renard Burgos on 06-13-2022 MCV (RBC) [Entitic vol] 92.3 fL 80-94 [facility] Hematocrit Auto (Bld) [Volum e fraction]Ordered By: Renard Burgos on 06-13-2022 Hematocrit (Bld) [Volume fraction] 42.0 % 40-54 [facility] Laboratory - Hematology and Cell countsOrdered By: Renard Burgos on 06-13-2022 Erythrocyte distribution width (RBC) [Entitic vol] 43.2 fL 35.1-43.9 [facility] Erythrocyte distribution width (RBC) [Ratio] 12.8 % 11.6-14.6 [facility] Immature granulocytes/100 WBC (Bld) 0.400 % 0.0-0.9 [facility] Comment on above: IG% - Immature Granu locytes (promyelocytes, myelocytes and metamyelocytes) > 1% indicates that a LEFT SHIFT is Present. MCH (RBC) [Entitic mass] 30.1 pg 27.0-32.0 [facility] Nucleated RBC/100 WBC (Bld) [Ratio] 0 % 0-5 [facility] MCHC Auto (RBC) [Mass/Vol]Or dered By: Renard Burgos on 06-13-2022 MCHC (RBC) [Mass/Vol] 32.6 g/dL 32-36 [facility] Platelets bldOrdered By: Lyubov Burgos on 06-13-2022 Platelets (Bld) [#/Vol] 203 10*3/uL 150-450 [facility] Absolute lymphocyte countOrd ered By: Renard Burgos on 06-06-2022 Lymphocytes Auto (Unsp spec) [#/Vol] 2.02 10*3/uL 0.83-4.51 [facility] Basophil percentageOrdered B y: Renard Burgos on 06-06-2022 Basophils/100 WBC (Bld) 0.5 % 0-1 [facility] Eosinophils/100 WBC (Bld) 0.7 % 0-5 [facility] Neutrophils (Bld) [#/Vol] 4.7 10*3/uL 2.0-7.7 [facility] Neutrophils/100 WBC (Bld) 63.3 % 47-70 [facility] WBC (Bld) [#/Vol] 7.4 10*3/uL 4.4-11.0 [facility] Blood erythrocytes count (nu mber/volume)Ordered By: Renard Burgos on 06-06-2022 RBC (Bld) [#/Vol] 4.57 10*6/uL 4.6-6.2 [facility] Blood hemoglobin measurement (mass/volume)Ordered By: Renard Burgos on 06-06-2022 Hemoglobin (Bld) [Mass/Vol] 14.0 g/dL 13.0-16.5 [facility] Blood lymphocytes/100 leukoc ytesOrdered By: Renard Burgos on 06-06-2022 Lymphocytes/100 WBC (Bld) 27.2 % 19-41 [facility] Blood monocytes/100 leukocyt esOrdered By: Renard Burgos on 06-06-2022 Monocytes/100 WBC (Bld) 7.9 % 0-10 [facility] Blood platelet mean volumeOr dered By: Renard Burgos on 06-06-2022 Platelet mean volume (Bld) [Entitic vol] 10.7 fL 6.2-12.0 [facility] Determination of erythrocyte mean corpuscular volume (MCV)Ordered By: Renard Burgos on 06-06-2022 MCV (RBC) [Entitic vol] 90.2 fL 80-94 [facility] Hematocrit Auto (Bld) [Volum e fraction]Ordered By: Renard Burgos on 06-06-2022 Hematocrit (Bld) [Volume fraction] 41.2 % 40-54 [facility] Laboratory - Hematology and Cell countsOrdered By: Renard Burgos on 06-06-2022 Erythrocyte distribution width (RBC) [Entitic vol] 41.5 fL 35.1-43.9 [facility] Erythrocyte distribution width (RBC) [Ratio] 12.7 % 11.6-14.6 [facility] Immature granulocytes/100 WBC (Bld) 0.400 % 0.0-0.9 [facility] Comment on above: IG% - Immature Granu locytes (promyelocytes, myelocytes and metamyelocytes) > 1% indicates that a LEFT SHIFT is Present. MCH (RBC) [Entitic mass] 30.6 pg 27.0-32.0 [facility] Nucleated RBC/100 WBC (Bld) [Ratio] 0 % 0-5 [facility] MCHC Auto (RBC) [Mass/Vol]Or dered By: Renard Burgos on 06-06-2022 MCHC (RBC) [Mass/Vol] 34.0 g/dL 32-36 [facility] Platelets bldOrdered By: Lyubov Burgos on 06-06-2022 Platelets (Bld) [#/Vol] 197 10*3/uL 150-450 [facility] Absolute lymphocyte countOrd ered By: Renard Burgos on 05-30-2022 Lymphocytes Auto (Unsp spec) [#/Vol] 2.32 10*3/uL 0.83-4.51 [facility] Basophil percentageOrdered B y: Renard Burgos on 05-30-2022 Basophils/100 WBC (Bld) 0.4 % 0-1 [facility] Eosinophils/100 WBC (Bld) 0.5 % 0-5 [facility] Neutrophils (Bld) [#/Vol] 5.2 10*3/uL 2.0-7.7 [facility] Neutrophils/100 WBC (Bld) 62.6 % 47-70 [facility] WBC (Bld) [#/Vol] 8.3 10*3/uL 4.4-11.0 [facility] Blood erythrocytes count (nu mber/volume)Ordered By: Renard Burgos on 05-30-2022 RBC (Bld) [#/Vol] 4.87 10*6/uL 4.6-6.2 [facility] Blood hemoglobin measurement (mass/volume)Ordered By: Renard Burgos on 05-30-2022 Hemoglobin (Bld) [Mass/Vol] 14.6 g/dL 13.0-16.5 [facility] Blood lymphocytes/100 leukoc ytesOrdered By: Renard Burgos on 05-30-2022 Lymphocytes/100 WBC (Bld) 27.9 % 19-41 [facility] Blood monocytes/100 leukocyt esOrdered By: Renard Burgos on 05-30-2022 Monocytes/100 WBC (Bld) 8.0 % 0-10 [facility] Blood platelet mean volumeOr dered By: Renard Burgos on 05-30-2022 Platelet mean volume (Bld) [Entitic vol] 10.9 fL 6.2-12.0 [facility] Determination of erythrocyte mean corpuscular volume (MCV)Ordered By: Renard Burgos on 05-30-2022 MCV (RBC) [Entitic vol] 91.6 fL 80-94 [facility] Hematocrit Auto (Bld) [Volum e fraction]Ordered By: Renard Burgos on 05-30-2022 Hematocrit (Bld) [Volume fraction] 44.6 % 40-54 [facility] Laboratory - Hematology and Cell countsOrdered By: Renard Burgos on 05-30-2022 Erythrocyte distribution width (RBC) [Entitic vol] 42.4 fL 35.1-43.9 [facility] Erythrocyte distribution width (RBC) [Ratio] 12.6 % 11.6-14.6 [facility] Immature granulocytes/100 WBC (Bld) 0.600 % 0.0-0.9 [facility] Comment on above: IG% - Immature Granu locytes (promyelocytes, myelocytes and metamyelocytes) > 1% indicates that a LEFT SHIFT is Present. MCH (RBC) [Entitic mass] 30.0 pg 27.0-32.0 [facility] Nucleated RBC/100 WBC (Bld) [Ratio] 0 % 0-5 [facility] MCHC Auto (RBC) [Mass/Vol]Or dered By: Renard Burgos on 05-30-2022 MCHC (RBC) [Mass/Vol] 32.7 g/dL 32-36 [facility] Platelets bldOrdered By: [facility] on 05-30-2022 Platelets (Bld) [#/Vol] 213 10*3/uL 150-450 [facility] Absolute lymphocyte countOrd ered By: Renard Burgos on 05-23-2022 Lymphocytes Auto (Unsp spec) [#/Vol] 2.07 10*3/uL 0.83-4.51 [facility] Basophil percentageOrdered B y: Renard Burgos on 05-23-2022 Basophils/100 WBC (Bld) 0.5 % 0-1 [facility] Eosinophils/100 WBC (Bld) 0.4 % 0-5 [facility] Neutrophils (Bld) [#/Vol] 5.7 10*3/uL 2.0-7.7 [facility] Neutrophils/100 WBC (Bld) 66.5 % 47-70 [facility] WBC (Bld) [#/Vol] 8.5 10*3/uL 4.4-11.0 [facility] Blood erythrocytes count (nu mber/volume)Ordered By: Renard Burgos on 05-23-2022 RBC (Bld) [#/Vol] 4.75 10*6/uL 4.6-6.2 [facility] Blood hemoglobin measurement (mass/volume)Ordered By: Renard Burgos on 05-23-2022 Hemoglobin (Bld) [Mass/Vol] 14.3 g/dL 13.0-16.5 [facility] Blood lymphocytes/100 leukoc ytesOrdered By: Renard Burgos on 05-23-2022 Lymphocytes/100 WBC (Bld) 24.4 % 19-41 [facility] Blood monocytes/100 leukocyt esOrdered By: Renard Burgos on 05-23-2022 Monocytes/100 WBC (Bld) 7.7 % 0-10 [facility] Blood platelet mean volumeOr dered By: Renard Burgos on 05-23-2022 Platelet mean volume (Bld) [Entitic vol] 11.1 fL 6.2-12.0 [facility] Determination of erythrocyte mean corpuscular volume (MCV)Ordered By: Renard Burgos on 05-23-2022 MCV (RBC) [Entitic vol] 90.9 fL 80-94 [facility] Hematocrit Auto (Bld) [Volum e fraction]Ordered By: Renard Burgos on 05-23-2022 Hematocrit (Bld) [Volume fraction] 43.2 % 40-54 [facility] Laboratory - Hematology and Cell countsOrdered By: Renard Burgos on 05-23-2022 Erythrocyte distribution width (RBC) [Entitic vol] 41.7 fL 35.1-43.9 [facility] Erythrocyte distribution width (RBC) [Ratio] 12.5 % 11.6-14.6 [facility] Immature granulocytes/100 WBC (Bld) 0.500 % 0.0-0.9 [facility] Comment on above: IG% - Immature Granu locytes (promyelocytes, myelocytes and metamyelocytes) > 1% indicates that a LEFT SHIFT is Present. MCH (RBC) [Entitic mass] 30.1 pg 27.0-32.0 [facility] Nucleated RBC/100 WBC (Bld) [Ratio] 0 % 0-5 [facility] MCHC Auto (RBC) [Mass/Vol]Or dered By: Renard Burgos on 05-23-2022 MCHC (RBC) [Mass/Vol] 33.1 g/dL 32-36 [facility] Platelets bldOrdered By: Lyubov Burgos on 05-23-2022 Platelets (Bld) [#/Vol] 213 10*3/uL 150-450 [facility] No Panel Informationon 05-20 Dejah Hazel DO 05/20/2022 7:32 PM Feeding Tube Replacement Performed by: Dejah Hazel DO Authorized by: Abelardo Rios DO Consent: Consent obtained: Verbal Consent given by: Patient Crapo protocol: Patient identity confirmed: Verbally with patient [...] Procedure completion: Tolerated well, no immediate complications [facility] [employer] [facility] XR Abdomen Single viewon G-tube position is within the stomach. No evidence of contrast extravasation. Report Dictated on Electronically Signed By: Jason Tran Electronically Signed Date/Time: 05/20/2022 7:38 PM EST [facility] [employer] Patient Name: KATHYA HOOPER Exam Date/Time: 05/20/2022 19:18 Procedure: XR ABDOMEN 1 VIEW Ordering Provider: RIOS TYLER Reason For Exam: SUPINE ABDOMEN (KUB) CLINICAL INDICATION: confirm placement of G tube A supine plain film of the abdomen was obtained. Repeat abdominal radiographs following hand injection of enteric contrast via the patient's enteric tube. (Gastrografin 30 mL). COMPARISON: None FINDINGS: On the welding equipment repairer supervisor image, no dilated bowel loops are identified. Feeding tube overlies the epigastric region of the abdomen. On the postcontrast images, there is a small amount of enteric contrast in the stomach and contrast is present throughout the proximal duodenum. No extravasated contrast is evident. [facility] Jason Tran M D - 05/20/2022 [...] 30 mL). COMPARISON: None FINDINGS: On the welding equipment repairer supervisor image, no dilated bowel loops are identified. [...] Electronically Signed Date/Time: 05/20/2022 7:38 PM EST [facility] [employer] Radiology Study observation (narrative) [facility] [employer] [facility] XR Abdomen Single viewOrdere d By: Jason Tran on 05-20-2022 [facility] [employer] Work Phone: Absolute lymphocyte countOrd ered By: Renard Burgos on 05-16-2022 Lymphocytes Auto (Unsp spec) [#/Vol] 2.06 10*3/uL 0.83-4.51 [facility] Basophil percentageOrdered B y: Renard Burgos on 05-16-2022 Basophils/100 WBC (Bld) 0.6 % 0-1 [facility] Eosinophils/100 WBC (Bld) 0.6 % 0-5 [facility] Neutrophils (Bld) [#/Vol] 4.4 10*3/uL 2.0-7.7 [facility] Neutrophils/100 WBC (Bld) 61.2 % 47-70 [facility] WBC (Bld) [#/Vol] 7.1 10*3/uL 4.4-11.0 [facility] Blood erythrocytes count (nu mber/volume)Ordered By: Renard Burgos on 05-16-2022 RBC (Bld) [#/Vol] 4.58 10*6/uL 4.6-6.2 [facility] Blood hemoglobin measurement (mass/volume)Ordered By: Renard Burgos on 05-16-2022 Hemoglobin (Bld) [Mass/Vol] 13.9 g/dL 13.0-16.5 [facility] Blood lymphocytes/100 leukoc ytesOrdered By: Renard Burgos on 05-16-2022 Lymphocytes/100 WBC (Bld) 29.0 % 19-41 [facility] Blood monocytes/100 leukocyt esOrdered By: Renard Burgos on 05-16-2022 Monocytes/100 WBC (Bld) 8.2 % 0-10 [facility] Blood platelet mean volumeOr dered By: Renard Burgos on 05-16-2022 Platelet mean volume (Bld) [Entitic vol] 11.1 fL 6.2-12.0 [facility] Determination of erythrocyte mean corpuscular volume (MCV)Ordered By: Renard Burgos on 05-16-2022 MCV (RBC) [Entitic vol] 91.5 fL 80-94 [facility] Hematocrit Auto (Bld) [Volum e fraction]Ordered By: Renard Burgos on 05-16-2022 Hematocrit (Bld) [Volume fraction] 41.9 % 40-54 [facility] Laboratory - Hematology and Cell countsOrdered By: Renard Burgos on 05-16-2022 Erythrocyte distribution width (RBC) [Entitic vol] 41.3 fL 35.1-43.9 [facility] Erythrocyte distribution width (RBC) [Ratio] 12.5 % 11.6-14.6 [facility] Immature granulocytes/100 WBC (Bld) 0.400 % 0.0-0.9 [facility] Comment on above: IG% - Immature Granu locytes (promyelocytes, myelocytes and metamyelocytes) > 1% indicates that a LEFT SHIFT is Present. MCH (RBC) [Entitic mass] 30.3 pg 27.0-32.0 [facility] Nucleated RBC/100 WBC (Bld) [Ratio] 0 % 0-5 [facility] MCHC Auto (RBC) [Mass/Vol]Or dered By: Renard Burgos on 05-16-2022 MCHC (RBC) [Mass/Vol] 33.2 g/dL 32-36 [facility] Platelets bldOrdered By: Lyubov Burgos on 05-16-2022 Platelets (Bld) [#/Vol] 205 10*3/uL 150-450 [facility] Absolute lymphocyte countOrd ered By: Renard Burgos on 05-09-2022 Lymphocytes Auto (Unsp spec) [#/Vol] 1.92 10*3/uL 0.83-4.51 [facility] Basophil percentageOrdered B y: Renard Burgos on 05-09-2022 Basophils/100 WBC (Bld) 0.7 % 0-1 [facility] Eosinophils/100 WBC (Bld) 0.7 % 0-5 [facility] Neutrophils (Bld) [#/Vol] 4.3 10*3/uL 2.0-7.7 [facility] Neutrophils/100 WBC (Bld) 60.9 % 47-70 [facility] WBC (Bld) [#/Vol] 7.1 10*3/uL 4.4-11.0 [facility] Blood erythrocytes count (nu mber/volume)Ordered By: Renard Burgos on 05-09-2022 RBC (Bld) [#/Vol] 4.67 10*6/uL 4.6-6.2 [facility] Blood hemoglobin measurement (mass/volume)Ordered By: Renard Burgos on 05-09-2022 Hemoglobin (Bld) [Mass/Vol] 14.1 g/dL 13.0-16.5 [facility] Blood lymphocytes/100 leukoc ytesOrdered By: Renard Burgos on 05-09-2022 Lymphocytes/100 WBC (Bld) 27.2 % 19-41 [facility] Blood monocytes/100 leukocyt esOrdered By: Renard Burgos on 05-09-2022 Monocytes/100 WBC (Bld) 10.2 % 0-10 [facility] Blood platelet mean volumeOr dered By: Renard Burgos on 05-09-2022 Platelet mean volume (Bld) [Entitic vol] 11.5 fL 6.2-12.0 [facility] Determination of erythrocyte mean corpuscular volume (MCV)Ordered By: Renard Burgos on 05-09-2022 MCV (RBC) [Entitic vol] 91.0 fL 80-94 [facility] Hematocrit Auto (Bld) [Volum e fraction]Ordered By: Renard Burgos on 05-09-2022 Hematocrit (Bld) [Volume fraction] 42.5 % 40-54 [facility] Laboratory - Hematology and Cell countsOrdered By: Renard Burgos on 05-09-2022 Erythrocyte distribution width (RBC) [Entitic vol] 41.4 fL 35.1-43.9 [facility] Erythrocyte distribution width (RBC) [Ratio] 12.7 % 11.6-14.6 [facility] Immature granulocytes/100 WBC (Bld) 0.300 % 0.0-0.9 [facility] Comment on above: IG% - Immature Granu locytes (promyelocytes, myelocytes and metamyelocytes) > 1% indicates that a LEFT SHIFT is Present. MCH (RBC) [Entitic mass] 30.2 pg 27.0-32.0 [facility] Nucleated RBC/100 WBC (Bld) [Ratio] 0.4 % 0-5 [facility] MCHC Auto (RBC) [Mass/Vol]Or dered By: Renard Burgos on 05-09-2022 MCHC (RBC) [Mass/Vol] 33.2 g/dL 32-36 [facility] Platelets bldOrdered By: Lyubov Burgos on 05-09-2022 Platelets (Bld) [#/Vol] 202 10*3/uL 150-450 [facility] Absolute lymphocyte countOrd ered By: Renard Burgos on 05-03-2022 Lymphocytes Auto (Unsp spec) [#/Vol] 1.86 10*3/uL 0.83-4.51 [facility] Basophil percentageOrdered B y: Renard Burgos on 05-03-2022 Basophils/100 WBC (Bld) 0.3 % 0-1 [facility] Eosinophils/100 WBC (Bld) 0.3 % 0-5 [facility] Neutrophils (Bld) [#/Vol] 6.4 10*3/uL 2.0-7.7 [facility] Neutrophils/100 WBC (Bld) 71.9 % 47-70 [facility] WBC (Bld) [#/Vol] 8.9 10*3/uL 4.4-11.0 [facility] Blood erythrocytes count (nu mber/volume)Ordered By: Renard Burgos on 05-03-2022 RBC (Bld) [#/Vol] 4.65 10*6/uL 4.6-6.2 [facility] Blood hemoglobin measurement (mass/volume)Ordered By: Renard Burgos on 05-03-2022 Hemoglobin (Bld) [Mass/Vol] 14.5 g/dL 13.0-16.5 [facility] Blood lymphocytes/100 leukoc ytesOrdered By: Renard Burgos on 05-03-2022 Lymphocytes/100 WBC (Bld) 20.9 % 19-41 [facility] Blood monocytes/100 leukocyt esOrdered By: Renard Burgos on 05-03-2022 Monocytes/100 WBC (Bld) 6.2 % 0-10 [facility] Blood platelet mean volumeOr dered By: Renard Burgos on 05-03-2022 Platelet mean volume (Bld) [Entitic vol] 11.1 fL 6.2-12.0 [facility] Determination of erythrocyte mean corpuscular volume (MCV)Ordered By: Renard Burgos on 05-03-2022 MCV (RBC) [Entitic vol] 90.1 fL 80-94 [facility] Hematocrit Auto (Bld) [Volum e fraction]Ordered By: Renard Burgos on 05-03-2022 Hematocrit (Bld) [Volume fraction] 41.9 % 40-54 [facility] Laboratory - Hematology and Cell countsOrdered By: Renard Burgos on 05-03-2022 Erythrocyte distribution width (RBC) [Entitic vol] 39.7 fL 35.1-43.9 [facility] Erythrocyte distribution width (RBC) [Ratio] 12.2 % 11.6-14.6 [facility] Immature granulocytes/100 WBC (Bld) 0.400 % 0.0-0.9 [facility] Comment on above: IG% - Immature Granu locytes (promyelocytes, myelocytes and metamyelocytes) > 1% indicates that a LEFT SHIFT is Present. MCH (RBC) [Entitic mass] 31.2 pg 27.0-32.0 [facility] Nucleated RBC/100 WBC (Bld) [Ratio] 0 % 0-5 [facility] MCHC Auto (RBC) [Mass/Vol]Or dered By: Renard Burgos on 05-03-2022 MCHC (RBC) [Mass/Vol] 34.6 g/dL 32-36 [facility] [place] Platelets bldOrdered By: Lyubov Burgos on 05-03-2022 Platelets (Bld) [#/Vol] 203 10*3/uL 150-450 [facility] Absolute lymphocyte countOrd ered By: Renard Burgos on 04-26-2022 Lymphocytes Auto (Unsp spec) [#/Vol] 2.79 10*3/uL 0.83-4.51 [facility] Basophil percentageOrdered B y: Renard Burgos on 04-26-2022 Basophils/100 WBC (Bld) 0.4 % 0-1 [facility] Eosinophils/100 WBC (Bld) 0.4 % 0-5 [facility] Neutrophils (Bld) [#/Vol] 5.9 10*3/uL 2.0-7.7 [facility] Neutrophils/100 WBC (Bld) 60.9 % 47-70 [facility] WBC (Bld) [#/Vol] 9.7 10*3/uL 4.4-11.0 [facility] Blood erythrocytes count (nu mber/volume)Ordered By: Renard Burgos on 04-26-2022 RBC (Bld) [#/Vol] 4.92 10*6/uL 4.6-6.2 [facility] Blood hemoglobin measurement (mass/volume)Ordered By: Renard Burgos on 04-26-2022 Hemoglobin (Bld) [Mass/Vol] 15.2 g/dL 13.0-16.5 [facility] Blood lymphocytes/100 leukoc ytesOrdered By: Renard Burgos on 04-26-2022 Lymphocytes/100 WBC (Bld) 28.9 % 19-41 [facility] Blood monocytes/100 leukocyt esOrdered By: Renard Burgos on 04-26-2022 Monocytes/100 WBC (Bld) 9.0 % 0-10 [facility] Blood platelet mean volumeOr dered By: Renard Burgos on 04-26-2022 Platelet mean volume (Bld) [Entitic vol] 11.0 fL 6.2-12.0 [facility] Determination of erythrocyte mean corpuscular volume (MCV)Ordered By: Renard Burgos on 04-26-2022 MCV (RBC) [Entitic vol] 92.3 fL 80-94 [facility] Hematocrit Auto (Bld) [Volum e fraction]Ordered By: Renard Burgos on 04-26-2022 Hematocrit (Bld) [Volume fraction] 45.4 % 40-54 [facility] Laboratory - Hematology and Cell countsOrdered By: Renard Burgos on 04-26-2022 Erythrocyte distribution width (RBC) [Entitic vol] 42.1 fL 35.1-43.9 [facility] Erythrocyte distribution width (RBC) [Ratio] 12.5 % 11.6-14.6 [facility] Immature granulocytes/100 WBC (Bld) 0.400 % 0.0-0.9 [facility] Comment on above: IG% - Immature Granu locytes (promyelocytes, myelocytes and metamyelocytes) > 1% indicates that a LEFT SHIFT is Present. MCH (RBC) [Entitic mass] 30.9 pg 27.0-32.0 [facility] Nucleated RBC/100 WBC (Bld) [Ratio] 0 % 0-5 [facility] MCHC Auto (RBC) [Mass/Vol]Or dered By: Renard Burgos on 04-26-2022 MCHC (RBC) [Mass/Vol] 33.5 g/dL 32-36 [facility] Platelets bldOrdered By: Lyubov Burgos on 04-26-2022 Platelets (Bld) [#/Vol] 178 10*3/uL 150-450 [facility] Absolute lymphocyte countOrd ered By: Renard Burgos on 04-18-2022 Lymphocytes Auto (Unsp spec) [#/Vol] 2.03 10*3/uL 0.83-4.51 [facility] Basophil percentageOrdered B y: Renard Burgos on 04-18-2022 Basophils/100 WBC (Bld) 0.6 % 0-1 [facility] Eosinophils/100 WBC (Bld) 0.6 % 0-5 [facility] Neutrophils (Bld) [#/Vol] 4.5 10*3/uL 2.0-7.7 [facility] Neutrophils/100 WBC (Bld) 62.0 % 47-70 [facility] WBC (Bld) [#/Vol] 7.2 10*3/uL 4.4-11.0 [facility] Blood erythrocytes count (nu mber/volume)Ordered By: Renard Burgos on 04-18-2022 RBC (Bld) [#/Vol] 4.67 10*6/uL 4.6-6.2 [facility] Blood hemoglobin measurement (mass/volume)Ordered By: Renard Burgos on 04-18-2022 Hemoglobin (Bld) [Mass/Vol] 14.5 g/dL 13.0-16.5 [facility] Blood lymphocytes/100 leukoc ytesOrdered By: Renard Burgos on 04-18-2022 Lymphocytes/100 WBC (Bld) 28.2 % 19-41 [facility] Blood monocytes/100 leukocyt esOrdered By: Renard Burgos on 04-18-2022 Monocytes/100 WBC (Bld) 8.2 % 0-10 [facility] Blood platelet mean volumeOr dered By: Renard Burgos on 04-18-2022 Platelet mean volume (Bld) [Entitic vol] 11.2 fL 6.2-12.0 [facility] Determination of erythrocyte mean corpuscular volume (MCV)Ordered By: Renard Burgos on 04-18-2022 MCV (RBC) [Entitic vol] 90.8 fL 80-94 [facility] Hematocrit Auto (Bld) [Volum e fraction]Ordered By: Renard Burgos on 04-18-2022 Hematocrit (Bld) [Volume fraction] 42.4 % 40-54 [facility] Laboratory - Hematology and Cell countsOrdered By: Renard Burgos on 04-18-2022 Erythrocyte distribution width (RBC) [Entitic vol] 41.1 fL 35.1-43.9 [facility] Erythrocyte distribution width (RBC) [Ratio] 12.5 % 11.6-14.6 [facility] Immature granulocytes/100 WBC (Bld) 0.400 % 0.0-0.9 [facility] Comment on above: IG% - Immature Granu locytes (promyelocytes, myelocytes and metamyelocytes) > 1% indicates that a LEFT SHIFT is Present. MCH (RBC) [Entitic mass] 31.0 pg 27.0-32.0 [facility] Nucleated RBC/100 WBC (Bld) [Ratio] 0 % 0-5 [facility] MCHC Auto (RBC) [Mass/Vol]Or dered By: Renard Burgos on 04-18-2022 MCHC (RBC) [Mass/Vol] 34.2 g/dL 32-36 [facility] Platelets bldOrdered By: Lyubov Burgos on 04-18-2022 Platelets (Bld) [#/Vol] 196 10*3/uL 150-450 [facility] Basophil percentageOrdered B y: Renard Burgos on 04-14-2022 Bilirubin [Mass/Vol] 0.40 mg/dL 0.20-1.00 [facility] [place] Comment on above: For patients on eltr ombopag therapy, use of Dimension [place] TBIL is not recommended. Protein [Mass/Vol] 6.3 g/dL 6.4-8.2 [facility] Direct bilirubinOrdered By: Renard Burgos on 04-14-2022 Bilirubin.direct [Mass/Vol] 0.12 mg/dL 0.00-0.30 [facility] Laboratory - Chemistry and C hemistry - challengeOrdered By: Renard Burgos on 04-14-2022 ALP [Catalytic activity/Vol] 117 U/L 45-117 [facility] ALT [Catalytic activity/Vol] 26 U/L 16-61 [facility] Globulin (S) [Mass/Vol] 3.2 g/dL 2.2-4.2 [facility] Serum or plasma albumin gordy urement (mass/volume)Ordered By: Renard Burgos on 04-14-2022 Albumin [Mass/Vol] 3.1 g/dL 3.2-5.0 [facility] Thin prep Papanicolaou smear with manual screeningOrdered By: Renard uBrgos on 04-14-2022 Thin prep Papanicolaou smear with manual screening 12 U/L 15-37 [facility] Absolute lymphocyte countOrd ered By: Renard Burgos on 04-11-2022 Lymphocytes Auto (Unsp spec) [#/Vol] 2.16 10*3/uL 0.83-4.51 [facility] Basophil percentageOrdered B y: Renard Burgos on 04-11-2022 Basophils/100 WBC (Bld) 0.4 % 0-1 [facility] Eosinophils/100 WBC (Bld) 0.4 % 0-5 [facility] Neutrophils (Bld) [#/Vol] 4.2 10*3/uL 2.0-7.7 [facility] Neutrophils/100 WBC (Bld) 61.1 % 47-70 [facility] WBC (Bld) [#/Vol] 6.9 10*3/uL 4.4-11.0 [facility] Blood erythrocytes count (nu mber/volume)Ordered By: Renard Burgos on 04-11-2022 RBC (Bld) [#/Vol] 4.58 10*6/uL 4.6-6.2 [facility] Blood hemoglobin measurement (mass/volume)Ordered By: Renard Burgos on 04-11-2022 Hemoglobin (Bld) [Mass/Vol] 13.9 g/dL 13.0-16.5 [facility] Blood lymphocytes/100 leukoc ytesOrdered By: Renard Burgos on 04-11-2022 Lymphocytes/100 WBC (Bld) 31.2 % 19-41 [facility] Blood monocytes/100 leukocyt esOrdered By: Renard Burgos on 04-11-2022 Monocytes/100 WBC (Bld) 6.5 % 0-10 [facility] Blood platelet mean volumeOr dered By: Renard Burgos on 04-11-2022 Platelet mean volume (Bld) [Entitic vol] 11.4 fL 6.2-12.0 [facility] Determination of erythrocyte mean corpuscular volume (MCV)Ordered By: Renard Burgos on 04-11-2022 MCV (RBC) [Entitic vol] 91.9 fL 80-94 [facility] Hematocrit Auto (Bld) [Volum e fraction]Ordered By: Renard Burgos on 04-11-2022 Hematocrit (Bld) [Volume fraction] 42.1 % 40-54 [facility] Laboratory - Hematology and Cell countsOrdered By: Renard Burgos on 04-11-2022 Erythrocyte distribution width (RBC) [Entitic vol] 41.5 fL 35.1-43.9 [facility] Erythrocyte distribution width (RBC) [Ratio] 12.3 % 11.6-14.6 [facility] Immature granulocytes/100 WBC (Bld) 0.400 % 0.0-0.9 [facility] Comment on above: IG% - Immature Granu locytes (promyelocytes, myelocytes and metamyelocytes) > 1% indicates that a LEFT SHIFT is Present. MCH (RBC) [Entitic mass] 30.3 pg 27.0-32.0 [facility] Nucleated RBC/100 WBC (Bld) [Ratio] 0 % 0-5 [facility] MCHC Auto (RBC) [Mass/Vol]Or dered By: Renard Burgos on 04-11-2022 MCHC (RBC) [Mass/Vol] 33.0 g/dL 32-36 [facility] Platelets bldOrdered By: Lyubov Burgos on 04-11-2022 Platelets (Bld) [#/Vol] 191 10*3/uL 150-450 [facility] Absolute lymphocyte countOrd ered By: Renard Burgos on 04-04-2022 Lymphocytes Auto (Unsp spec) [#/Vol] 1.99 10*3/uL 0.83-4.51 [facility] Basophil percentageOrdered B y: Renard Burgos on 04-04-2022 Basophils/100 WBC (Bld) 0.4 % 0-1 [facility] Cholesterol [Mass/Vol] 158 mg/dL <200 [facility] Comment on above: <200 mg/dL Desirable 200-240 mg/dL Borderline >240 mg/dL High Risk Eosinophils/100 WBC (Bld) 0.4 % 0-5 [facility] Neutrophils (Bld) [#/Vol] 4.9 10*3/uL 2.0-7.7 [facility] Neutrophils/100 WBC (Bld) 64.2 % 47-70 [facility] Triglyceride [Mass/Vol] 259 mg/dL <199 [facility] Comment on above: The drugs N-Acetylcy steine and Metamizole may falsely depress this assay.Serum Triglycerides Reference Interval Normal <150 mg/dL Borderline high 150 - 199 mg/dL High 200 - 499 mg/dL Very High > or = 500 mg/dL WBC (Bld) [#/Vol] 7.7 10*3/uL 4.4-11.0 [facility] Blood erythrocytes count (nu mber/volume)Ordered By: Renard Burgos on 04-04-2022 RBC (Bld) [#/Vol] 4.63 10*6/uL 4.6-6.2 [facility] Blood hemoglobin measurement (mass/volume)Ordered By: Renard Burgos on 04-04-2022 Hemoglobin (Bld) [Mass/Vol] 14.1 g/dL 13.0-16.5 [facility] Blood lymphocytes/100 leukoc ytesOrdered By: Renard Burgos on 04-04-2022 Lymphocytes/100 WBC (Bld) 25.9 % 19-41 [facility] Blood monocytes/100 leukocyt esOrdered By: Renard Burgos on 04-04-2022 Monocytes/100 WBC (Bld) 8.6 % 0-10 [facility] Blood platelet mean volumeOr dered By: Renard Burgos on 04-04-2022 Platelet mean volume (Bld) [Entitic vol] 11.3 fL 6.2-12.0 [facility] Determination of erythrocyte mean corpuscular volume (MCV)Ordered By: Renard Burgos on 04-04-2022 MCV (RBC) [Entitic vol] 90.7 fL 80-94 [facility] Hematocrit Auto (Bld) [Volum e fraction]Ordered By: Renard Burgos on 04-04-2022 Hematocrit (Bld) [Volume fraction] 42.0 % 40-54 [facility] Laboratory - Hematology and Cell countsOrdered By: Renard Burgos on 04-04-2022 Erythrocyte distribution width (RBC) [Entitic vol] 41.3 fL 35.1-43.9 [facility] Erythrocyte distribution width (RBC) [Ratio] 12.4 % 11.6-14.6 [facility] Immature granulocytes/100 WBC (Bld) 0.500 % 0.0-0.9 [facility] Comment on above: IG% - Immature Granu locytes (promyelocytes, myelocytes and metamyelocytes) > 1% indicates that a LEFT SHIFT is Present. MCH (RBC) [Entitic mass] 30.5 pg 27.0-32.0 [facility] Nucleated RBC/100 WBC (Bld) [Ratio] 0 % 0-5 [facility] MCHC Auto (RBC) [Mass/Vol]Or dered By: Renard Burgos on 04-04-2022 MCHC (RBC) [Mass/Vol] 33.6 g/dL 32-36 [facility] Platelets bldOrdered By: Lyubov Burgos on 04-04-2022 Platelets (Bld) [#/Vol] 174 10*3/uL 150-450 [facility] Serum or plasma cholesterol in HDL measurement (mass/volume)Ordered By: Renard Burgos on 04-04-2022 Cholesterol in HDL [Mass/Vol] 26 mg/dL >40 [facility] Comment on above: The drugs N-Acetylcy steine and Metamizole may falsely depress this assay. Reference Range HDL <40 mg/dL Low HDL Cholesterol HDL >or= 60 mg/dL High HDL Cholesterol Serum or plasma cholesterol in VLDL measurement (mass/volume)Ordered By: Renard Burgos on 04-04-2022 Cholesterol in VLDL [Mass/Vol] 52 mg/dL 5-40 [facility] Serum or plasma low density lipoprotein (LDL) cholesterol measurement (mass/volume)Ordered By: Renard Burgos on 04-04-2022 Cholesterol in LDL [Mass/Vol] 80 mg/dL 0-130 [facility] Absolute lymphocyte countOrd ered By: Renard Burgos on 03-28-2022 Lymphocytes Auto (Unsp spec) [#/Vol] 2.25 10*3/uL 0.83-4.51 [facility] Basophil percentageOrdered B y: Renard Burgos on 03-28-2022 Basophils/100 WBC (Bld) 0.6 % 0-1 [facility] Eosinophils/100 WBC (Bld) 0.5 % 0-5 [facility] Neutrophils (Bld) [#/Vol] 4.8 10*3/uL 2.0-7.7 [facility] Neutrophils/100 WBC (Bld) 60.5 % 47-70 [facility] WBC (Bld) [#/Vol] 8.0 10*3/uL 4.4-11.0 [facility] Blood erythrocytes count (nu mber/volume)Ordered By: Renard Burgos on 03-28-2022 RBC (Bld) [#/Vol] 4.69 10*6/uL 4.6-6.2 [facility] Blood hemoglobin measurement (mass/volume)Ordered By: Renard Burgos on 03-28-2022 Hemoglobin (Bld) [Mass/Vol] 14.4 g/dL 13.0-16.5 [facility] Blood lymphocytes/100 leukoc ytesOrdered By: Renard Burgos on 03-28-2022 Lymphocytes/100 WBC (Bld) 28.1 % 19-41 [facility] Blood monocytes/100 leukocyt esOrdered By: Renard Burgos on 03-28-2022 Monocytes/100 WBC (Bld) 9.8 % 0-10 [facility] Blood platelet mean volumeOr dered By: Renard Burgos on 03-28-2022 Platelet mean volume (Bld) [Entitic vol] 10.8 fL 6.2-12.0 [facility] Determination of erythrocyte mean corpuscular volume (MCV)Ordered By: Renard Burgos on 03-28-2022 MCV (RBC) [Entitic vol] 92.1 fL 80-94 [facility] Hematocrit Auto (Bld) [Volum e fraction]Ordered By: Renard Burgos on 03-28-2022 Hematocrit (Bld) [Volume fraction] 43.2 % 40-54 [facility] Laboratory - Hematology and Cell countsOrdered By: Renard Burgos on 03-28-2022 Erythrocyte distribution width (RBC) [Entitic vol] 42.0 fL 35.1-43.9 [facility] Erythrocyte distribution width (RBC) [Ratio] 12.5 % 11.6-14.6 [facility] Immature granulocytes/100 WBC (Bld) 0.500 % 0.0-0.9 [facility] Comment on above: IG% - Immature Granu locytes (promyelocytes, myelocytes and metamyelocytes) > 1% indicates that a LEFT SHIFT is Present. MCH (RBC) [Entitic mass] 30.7 pg 27.0-32.0 [facility] Nucleated RBC/100 WBC (Bld) [Ratio] 0 % 0-5 [facility] MCHC Auto (RBC) [Mass/Vol]Or dered By: Renard Burgos on 03-28-2022 MCHC (RBC) [Mass/Vol] 33.3 g/dL 32-36 [facility] [place] Platelets bldOrdered By: Lyubov Burgos on 03-28-2022 Platelets (Bld) [#/Vol] 207 10*3/uL 150-450 [facility] Absolute lymphocyte countOrd ered By: Renard Burgos on 03-21-2022 Lymphocytes Auto (Unsp spec) [#/Vol] 1.98 10*3/uL 0.83-4.51 [facility] Basophil percentageOrdered B y: Renard Burgos on 03-21-2022 Basophils/100 WBC (Bld) 0.5 % 0-1 [facility] Eosinophils/100 WBC (Bld) 0.5 % 0-5 [facility] Neutrophils (Bld) [#/Vol] 4.9 10*3/uL 2.0-7.7 [facility] Neutrophils/100 WBC (Bld) 63.6 % 47-70 [facility] WBC (Bld) [#/Vol] 7.7 10*3/uL 4.4-11.0 [facility] Blood erythrocytes count (nu mber/volume)Ordered By: Renard Burgos on 03-21-2022 RBC (Bld) [#/Vol] 4.82 10*6/uL 4.6-6.2 [facility] Blood hemoglobin measurement (mass/volume)Ordered By: Renard Burgos on 03-21-2022 Hemoglobin (Bld) [Mass/Vol] 14.9 g/dL 13.0-16.5 [facility] Blood lymphocytes/100 leukoc ytesOrdered By: Renard Burgos on 03-21-2022 Lymphocytes/100 WBC (Bld) 25.7 % 19-41 [facility] Blood monocytes/100 leukocyt esOrdered By: Renard Burgos on 03-21-2022 Monocytes/100 WBC (Bld) 9.3 % 0-10 [facility] Blood platelet mean volumeOr dered By: Renard Burgos on 03-21-2022 Platelet mean volume (Bld) [Entitic vol] 10.8 fL 6.2-12.0 [facility] Determination of erythrocyte mean corpuscular volume (MCV)Ordered By: Renard Burgos on 03-21-2022 MCV (RBC) [Entitic vol] 90.7 fL 80-94 [facility] Hematocrit Auto (Bld) [Volum e fraction]Ordered By: Renard Burgos on 03-21-2022 Hematocrit (Bld) [Volume fraction] 43.7 % 40-54 [facility] Laboratory - Hematology and Cell countsOrdered By: Renard Burgos on 03-21-2022 Erythrocyte distribution width (RBC) [Entitic vol] 40.8 fL 35.1-43.9 [facility] Erythrocyte distribution width (RBC) [Ratio] 12.4 % 11.6-14.6 [facility] Immature granulocytes/100 WBC (Bld) 0.400 % 0.0-0.9 [facility] Comment on above: IG% - Immature Granu locytes (promyelocytes, myelocytes and metamyelocytes) > 1% indicates that a LEFT SHIFT is Present. MCH (RBC) [Entitic mass] 30.9 pg 27.0-32.0 [facility] Nucleated RBC/100 WBC (Bld) [Ratio] 0 % 0-5 [facility] MCHC Auto (RBC) [Mass/Vol]Or dered By: Renard Burgos on 03-21-2022 MCHC (RBC) [Mass/Vol] 34.1 g/dL 32-36 [facility] [place] Platelets bldOrdered By: Lyubov Burgos on 03-21-2022 Platelets (Bld) [#/Vol] 186 10*3/uL 150-450 [facility] Absolute lymphocyte countOrd ered By: Renard Burgos on 03-14-2022 Lymphocytes Auto (Unsp spec) [#/Vol] 2.18 10*3/uL 0.83-4.51 [facility] Basophil percentageOrdered B y: Renard Burgos on 03-14-2022 Basophils/100 WBC (Bld) 0.4 % 0-1 [facility] Eosinophils/100 WBC (Bld) 0.6 % 0-5 [facility] Neutrophils (Bld) [#/Vol] 4.3 10*3/uL 2.0-7.7 [facility] Neutrophils/100 WBC (Bld) 58.8 % 47-70 [facility] WBC (Bld) [#/Vol] 7.3 10*3/uL 4.4-11.0 [facility] Blood erythrocytes count (nu mber/volume)Ordered By: Renard Burgos on 03-14-2022 RBC (Bld) [#/Vol] 4.80 10*6/uL 4.6-6.2 [facility] Blood hemoglobin measurement (mass/volume)Ordered By: Renard Burgos on 03-14-2022 Hemoglobin (Bld) [Mass/Vol] 14.5 g/dL 13.0-16.5 [facility] Blood lymphocytes/100 leukoc ytesOrdered By: Renard Burgos on 03-14-2022 Lymphocytes/100 WBC (Bld) 30.1 % 19-41 [facility] Blood monocytes/100 leukocyt esOrdered By: Renard Burgos on 03-14-2022 Monocytes/100 WBC (Bld) 9.5 % 0-10 [facility] Blood platelet mean volumeOr dered By: Renard Burgos on 03-14-2022 Platelet mean volume (Bld) [Entitic vol] 11.0 fL 6.2-12.0 [facility] Determination of erythrocyte mean corpuscular volume (MCV)Ordered By: Renard Burgos on 03-14-2022 MCV (RBC) [Entitic vol] 91.5 fL 80-94 [facility] Hematocrit Auto (Bld) [Volum e fraction]Ordered By: Renard Burgos on 03-14-2022 Hematocrit (Bld) [Volume fraction] 43.9 % 40-54 [facility] Laboratory - Hematology and Cell countsOrdered By: Renard Burgos on 03-14-2022 Erythrocyte distribution width (RBC) [Entitic vol] 41.1 fL 35.1-43.9 [facility] Erythrocyte distribution width (RBC) [Ratio] 12.4 % 11.6-14.6 [facility] Immature granulocytes/100 WBC (Bld) 0.600 % 0.0-0.9 [facility] Comment on above: IG% - Immature Granu locytes (promyelocytes, myelocytes and metamyelocytes) > 1% indicates that a LEFT SHIFT is Present. MCH (RBC) [Entitic mass] 30.2 pg 27.0-32.0 [facility] Nucleated RBC/100 WBC (Bld) [Ratio] 0 % 0-5 [facility] MCHC Auto (RBC) [Mass/Vol]Or dered By: Renard Burgos on 03-14-2022 MCHC (RBC) [Mass/Vol] 33.0 g/dL 32-36 [facility] [place] Platelets bldOrdered By: Lyubov Burgos on 03-14-2022 Platelets (Bld) [#/Vol] 201 10*3/uL 150-450 [facility] Absolute lymphocyte countOrd ered By: Renard Burgos on 2022 Lymphocytes Auto (Unsp spec) [#/Vol] 1.97 10*3/uL 0.83-4.51 [facility] Basophil percentageOrdered B y: Renard Burgos on 2022 Basophils/100 WBC (Bld) 0.6 % 0-1 [facility] Eosinophils/100 WBC (Bld) 0.4 % 0-5 [facility] Neutrophils (Bld) [#/Vol] 4.3 10*3/uL 2.0-7.7 [facility] Neutrophils/100 WBC (Bld) 61.3 % 47-70 [facility] WBC (Bld) [#/Vol] 7.0 10*3/uL 4.4-11.0 [facility] Blood erythrocytes count (nu mber/volume)Ordered By: Renard Burgos on 2022 RBC (Bld) [#/Vol] 4.78 10*6/uL 4.6-6.2 [facility] Blood hemoglobin measurement (mass/volume)Ordered By: Renard Burgos on 2022 Hemoglobin (Bld) [Mass/Vol] 14.4 g/dL 13.0-16.5 [facility] Blood lymphocytes/100 leukoc ytesOrdered By: Renard Burgos on 2022 Lymphocytes/100 WBC (Bld) 28.3 % 19-41 [facility] Blood monocytes/100 leukocyt esOrdered By: Renard Burgos on 2022 Monocytes/100 WBC (Bld) 9.1 % 0-10 [facility] Blood platelet mean volumeOr dered By: Renard Burgos on 2022 Platelet mean volume (Bld) [Entitic vol] 11.1 fL 6.2-12.0 [facility] Determination of erythrocyte mean corpuscular volume (MCV)Ordered By: Renard Burgos on 2022 MCV (RBC) [Entitic vol] 91.2 fL 80-94 [facility] Hematocrit Auto (Bld) [Volum e fraction]Ordered By: Renard Burgos on 2022 Hematocrit (Bld) [Volume fraction] 43.6 % 40-54 [facility] Laboratory - Hematology and Cell countsOrdered By: Renard Burgos on 2022 Erythrocyte distribution width (RBC) [Entitic vol] 42.0 fL 35.1-43.9 [facility] Erythrocyte distribution width (RBC) [Ratio] 12.6 % 11.6-14.6 [facility] Immature granulocytes/100 WBC (Bld) 0.300 % 0.0-0.9 [facility] Comment on above: IG% - Immature Granu locytes (promyelocytes, myelocytes and metamyelocytes) > 1% indicates that a LEFT SHIFT is Present. MCH (RBC) [Entitic mass] 30.1 pg 27.0-32.0 [facility] Nucleated RBC/100 WBC (Bld) [Ratio] 0 % 0-5 [facility] MCHC Auto (RBC) [Mass/Vol]Or dered By: Renard Burgos on 2022 MCHC (RBC) [Mass/Vol] 33.0 g/dL 32-36 [facility] [place] Platelets bldOrdered By: Lyubov Burgos on 2022 Platelets (Bld) [#/Vol] 210 10*3/uL 150-450 [facility] Absolute lymphocyte countOrd ered By: Renard Burgos on 02-28-2022 Lymphocytes Auto (Unsp spec) [#/Vol] 1.85 10*3/uL 0.83-4.51 [facility] Basophil percentageOrdered B y: Renard Burgos on 02-28-2022 Basophils/100 WBC (Bld) 0.4 % 0-1 [facility] Eosinophils/100 WBC (Bld) 0.4 % 0-5 [facility] Neutrophils (Bld) [#/Vol] 5.3 10*3/uL 2.0-7.7 [facility] [facility] Neutrophils/100 WBC (Bld) 67.8 % 47-70 [facility] WBC (Bld) [#/Vol] 7.8 10*3/uL 4.4-11.0 [facility] Blood erythrocytes count (nu mber/volume)Ordered By: Renard Burgos on 02-28-2022 RBC (Bld) [#/Vol] 4.58 10*6/uL 4.6-6.2 [facility] Blood hemoglobin measurement (mass/volume)Ordered By: Renard Burgos on 02-28-2022 Hemoglobin (Bld) [Mass/Vol] 14.3 g/dL 13.0-16.5 [facility] Blood lymphocytes/100 leukoc ytesOrdered By: Renard Burgos on 02-28-2022 Lymphocytes/100 WBC (Bld) 23.8 % 19-41 [facility] Blood monocytes/100 leukocyt esOrdered By: Renard Burgos on 02-28-2022 Monocytes/100 WBC (Bld) 7.2 % 0-10 [facility] Blood platelet mean volumeOr dered By: Renard Burgos on 02-28-2022 Platelet mean volume (Bld) [Entitic vol] 10.8 fL 6.2-12.0 [facility] Determination of erythrocyte mean corpuscular volume (MCV)Ordered By: Renard Burgos on 02-28-2022 MCV (RBC) [Entitic vol] 91.5 fL 80-94 [facility] Hematocrit Auto (Bld) [Volum e fraction]Ordered By: Renard Burgos on 02-28-2022 Hematocrit (Bld) [Volume fraction] 41.9 % 40-54 [facility] Laboratory - Hematology and Cell countsOrdered By: Renard Burgos on 02-28-2022 Erythrocyte distribution width (RBC) [Entitic vol] 42.2 fL 35.1-43.9 [facility] Erythrocyte distribution width (RBC) [Ratio] 12.7 % 11.6-14.6 [facility] Immature granulocytes/100 WBC (Bld) 0.400 % 0.0-0.9 [facility] Comment on above: IG% - Immature Granu locytes (promyelocytes, myelocytes and metamyelocytes) > 1% indicates that a LEFT SHIFT is Present. MCH (RBC) [Entitic mass] 31.2 pg 27.0-32.0 [facility] Nucleated RBC/100 WBC (Bld) [Ratio] 0 % 0-5 [facility] MCHC Auto (RBC) [Mass/Vol]Or dered By: Renard Burgos on 02-28-2022 MCHC (RBC) [Mass/Vol] 34.1 g/dL 32-36 [facility] Platelets bldOrdered By: Lyubov Burgos on 02-28-2022 Platelets (Bld) [#/Vol] 202 10*3/uL 150-450 [facility] Absolute lymphocyte countOrd ered By: Renard Burgos on 02-21-2022 Lymphocytes Auto (Unsp spec) [#/Vol] 1.93 10*3/uL 0.83-4.51 [facility] Basophil percentageOrdered B y: Renard Burgos on 02-21-2022 Basophils/100 WBC (Bld) 0.4 % 0-1 [facility] Eosinophils/100 WBC (Bld) 0.4 % 0-5 [facility] Neutrophils (Bld) [#/Vol] 4.6 10*3/uL 2.0-7.7 [facility] Neutrophils/100 WBC (Bld) 63.4 % 47-70 [facility] WBC (Bld) [#/Vol] 7.2 10*3/uL 4.4-11.0 [facility] Blood erythrocytes count (nu mber/volume)Ordered By: Renard Burgos on 02-21-2022 RBC (Bld) [#/Vol] 4.54 10*6/uL 4.6-6.2 [facility] Blood hemoglobin measurement (mass/volume)Ordered By: Renard Burgos on 02-21-2022 Hemoglobin (Bld) [Mass/Vol] 14.1 g/dL 13.0-16.5 [facility] Blood lymphocytes/100 leukoc ytesOrdered By: Renard Burgos on 02-21-2022 Lymphocytes/100 WBC (Bld) 26.7 % 19-41 [facility] Blood monocytes/100 leukocyt esOrdered By: Renard Burgos on 02-21-2022 Monocytes/100 WBC (Bld) 8.8 % 0-10 [facility] Blood platelet mean volumeOr dered By: Renard Burgos on 02-21-2022 Platelet mean volume (Bld) [Entitic vol] 11.1 fL 6.2-12.0 [facility] Determination of erythrocyte mean corpuscular volume (MCV)Ordered By: Renard Burgos on 02-21-2022 MCV (RBC) [Entitic vol] 91.4 fL 80-94 [facility] Hematocrit Auto (Bld) [Volum e fraction]Ordered By: Renard Burgos on 02-21-2022 Hematocrit (Bld) [Volume fraction] 41.5 % 40-54 [facility] Laboratory - Hematology and Cell countsOrdered By: Renard Burgos on 02-21-2022 Erythrocyte distribution width (RBC) [Entitic vol] 41.9 fL 35.1-43.9 [facility] Erythrocyte distribution width (RBC) [Ratio] 12.6 % 11.6-14.6 [facility] Immature granulocytes/100 WBC (Bld) 0.300 % 0.0-0.9 [facility] Comment on above: IG% - Immature Granu locytes (promyelocytes, myelocytes and metamyelocytes) > 1% indicates that a LEFT SHIFT is Present. MCH (RBC) [Entitic mass] 31.1 pg 27.0-32.0 [facility] Nucleated RBC/100 WBC (Bld) [Ratio] 0 % 0-5 [facility] MCHC Auto (RBC) [Mass/Vol]Or dered By: Renard Burgos on 02-21-2022 MCHC (RBC) [Mass/Vol] 34.0 g/dL 32-36 [facility] Platelets bldOrdered By: Lyubov Burgos on 02-21-2022 Platelets (Bld) [#/Vol] 189 10*3/uL 150-450 [facility] Absolute lymphocyte countOrd ered By: Renard Burgos on 02-14-2022 Lymphocytes Auto (Unsp spec) [#/Vol] 2.00 10*3/uL 0.83-4.51 [facility] Basophil percentageOrdered B y: Renard Burgos on 02-14-2022 Basophils/100 WBC (Bld) 0.6 % 0-1 [facility] Eosinophils/100 WBC (Bld) 0.3 % 0-5 [facility] Neutrophils (Bld) [#/Vol] 6.4 10*3/uL 2.0-7.7 [facility] Neutrophils/100 WBC (Bld) 69.5 % 47-70 [facility] WBC (Bld) [#/Vol] 9.3 10*3/uL 4.4-11.0 [facility] Blood erythrocytes count (nu mber/volume)Ordered By: Renard Burgos on 02-14-2022 RBC (Bld) [#/Vol] 4.65 10*6/uL 4.6-6.2 [facility] Blood hemoglobin measurement (mass/volume)Ordered By: Renard Burgos on 02-14-2022 Hemoglobin (Bld) [Mass/Vol] 14.6 g/dL 13.0-16.5 [facility] Blood lymphocytes/100 leukoc ytesOrdered By: Renard Burgos on 02-14-2022 Lymphocytes/100 WBC (Bld) 21.6 % 19-41 [facility] Blood monocytes/100 leukocyt esOrdered By: Renard Burgos on 02-14-2022 Monocytes/100 WBC (Bld) 7.6 % 0-10 [facility] Blood platelet mean volumeOr dered By: Renard Burgos on 02-14-2022 Platelet mean volume (Bld) [Entitic vol] 11.1 fL 6.2-12.0 [facility] Determination of erythrocyte mean corpuscular volume (MCV)Ordered By: Renard Burgos on 02-14-2022 MCV (RBC) [Entitic vol] 91.8 fL 80-94 [facility] Hematocrit Auto (Bld) [Volum e fraction]Ordered By: Renard Burgos on 02-14-2022 Hematocrit (Bld) [Volume fraction] 42.7 % 40-54 [facility] Laboratory - Hematology and Cell countsOrdered By: Renard Burgos on 02-14-2022 Erythrocyte distribution width (RBC) [Entitic vol] 43.7 fL 35.1-43.9 [facility] Erythrocyte distribution width (RBC) [Ratio] 13.0 % 11.6-14.6 [facility] Immature granulocytes/100 WBC (Bld) 0.400 % 0.0-0.9 [facility] Comment on above: IG% - Immature Granu locytes (promyelocytes, myelocytes and metamyelocytes) > 1% indicates that a LEFT SHIFT is Present. MCH (RBC) [Entitic mass] 31.4 pg 27.0-32.0 [facility] Nucleated RBC/100 WBC (Bld) [Ratio] 0 % 0-5 [facility] MCHC Auto (RBC) [Mass/Vol]Or dered By: Renard Burgos on 02-14-2022 MCHC (RBC) [Mass/Vol] 34.2 g/dL 32-36 [facility] Platelets bldOrdered By: Lyubov Burgos on 02-14-2022 Platelets (Bld) [#/Vol] 187 10*3/uL 150-450 [facility] Absolute lymphocyte countOrd ered By: Renard Burgos on 02-07-2022 Lymphocytes Auto (Unsp spec) [#/Vol] 1.97 10*3/uL 0.83-4.51 [facility] Basophil percentageOrdered B y: Renard Burgos on 02-07-2022 Basophils/100 WBC (Bld) 0.4 % 0-1 [facility] Eosinophils/100 WBC (Bld) 0.3 % 0-5 [facility] Neutrophils (Bld) [#/Vol] 4.2 10*3/uL 2.0-7.7 [facility] Neutrophils/100 WBC (Bld) 61.8 % 47-70 [facility] WBC (Bld) [#/Vol] 6.8 10*3/uL 4.4-11.0 [facility] Blood erythrocytes count (nu mber/volume)Ordered By: Renard Burgos on 02-07-2022 RBC (Bld) [#/Vol] 4.86 10*6/uL 4.6-6.2 [facility] Blood hemoglobin measurement (mass/volume)Ordered By: Renard Burgos on 02-07-2022 Hemoglobin (Bld) [Mass/Vol] 15.4 g/dL 13.0-16.5 [facility] Blood lymphocytes/100 leukoc ytesOrdered By: Renard Burgos on 02-07-2022 Lymphocytes/100 WBC (Bld) 29.1 % 19-41 [facility] Blood monocytes/100 leukocyt esOrdered By: Renard Burgos on 02-07-2022 Monocytes/100 WBC (Bld) 8.1 % 0-10 [facility] Blood platelet mean volumeOr dered By: Renard Burgos on 02-07-2022 Platelet mean volume (Bld) [Entitic vol] 11.0 fL 6.2-12.0 [facility] Determination of erythrocyte mean corpuscular volume (MCV)Ordered By: Renard Burgos on 02-07-2022 MCV (RBC) [Entitic vol] 92.6 fL 80-94 [facility] Hematocrit Auto (Bld) [Volum e fraction]Ordered By: Renard Burgos on 02-07-2022 Hematocrit (Bld) [Volume fraction] 45.0 % 40-54 [facility] Laboratory - Hematology and Cell countsOrdered By: Renard Burgos on 02-07-2022 Erythrocyte distribution width (RBC) [Entitic vol] 43.1 fL 35.1-43.9 [facility] Erythrocyte distribution width (RBC) [Ratio] 12.7 % 11.6-14.6 [facility] Immature granulocytes/100 WBC (Bld) 0.300 % 0.0-0.9 [facility] Comment on above: IG% - Immature Granu locytes (promyelocytes, myelocytes and metamyelocytes) > 1% indicates that a LEFT SHIFT is Present. MCH (RBC) [Entitic mass] 31.7 pg 27.0-32.0 [facility] Nucleated RBC/100 WBC (Bld) [Ratio] 0 % 0-5 [facility] MCHC Auto (RBC) [Mass/Vol]Or dered By: Renard Burgos on 02-07-2022 MCHC (RBC) [Mass/Vol] 34.2 g/dL 32-36 [facility] Platelets bldOrdered By: Lyubov Burgos on 02-07-2022 Platelets (Bld) [#/Vol] 196 10*3/uL 150-450 [facility] Absolute lymphocyte countOrd ered By: Renard Burgos on 01-31-2022 Lymphocytes Auto (Unsp spec) [#/Vol] 2.19 10*3/uL 0.83-4.51 [facility] Basophil percentageOrdered B y: Renard Burgos on 01-31-2022 Basophils/100 WBC (Bld) 0.3 % 0-1 [facility] Eosinophils/100 WBC (Bld) 0.2 % 0-5 [facility] Neutrophils (Bld) [#/Vol] 5.7 10*3/uL 2.0-7.7 [facility] Neutrophils/100 WBC (Bld) 64.9 % 47-70 [facility] WBC (Bld) [#/Vol] 8.8 10*3/uL 4.4-11.0 [facility] Blood erythrocytes count (nu mber/volume)Ordered By: Renard Burgos on 01-31-2022 RBC (Bld) [#/Vol] 4.81 10*6/uL 4.6-6.2 [facility] Blood hemoglobin measurement (mass/volume)Ordered By: Renard Burgos on 01-31-2022 Hemoglobin (Bld) [Mass/Vol] 14.9 g/dL 13.0-16.5 [facility] Blood lymphocytes/100 leukoc ytesOrdered By: Renard Burgos on 01-31-2022 Lymphocytes/100 WBC (Bld) 24.9 % 19-41 [facility] Blood monocytes/100 leukocyt esOrdered By: Renard Burgos on 01-31-2022 Monocytes/100 WBC (Bld) 9.2 % 0-10 [facility] Blood platelet mean volumeOr dered By: Renard Burgos on 01-31-2022 Platelet mean volume (Bld) [Entitic vol] 11.0 fL 6.2-12.0 [facility] Determination of erythrocyte mean corpuscular volume (MCV)Ordered By: Renard Burgos on 01-31-2022 MCV (RBC) [Entitic vol] 92.9 fL 80-94 [facility] Hematocrit Auto (Bld) [Volum e fraction]Ordered By: Renard Burgos on 01-31-2022 Hematocrit (Bld) [Volume fraction] 44.7 % 40-54 [facility] Laboratory - Hematology and Cell countsOrdered By: Renard Burgos on 01-31-2022 Erythrocyte distribution width (RBC) [Entitic vol] 42.9 fL 35.1-43.9 [facility] Erythrocyte distribution width (RBC) [Ratio] 12.6 % 11.6-14.6 [facility] Immature granulocytes/100 WBC (Bld) 0.500 % 0.0-0.9 [facility] Comment on above: IG% - Immature Granu locytes (promyelocytes, myelocytes and metamyelocytes) > 1% indicates that a LEFT SHIFT is Present. MCH (RBC) [Entitic mass] 31.0 pg 27.0-32.0 [facility] Nucleated RBC/100 WBC (Bld) [Ratio] 0 % 0-5 [facility] MCHC Auto (RBC) [Mass/Vol]Or dered By: Renard Burgos on 01-31-2022 MCHC (RBC) [Mass/Vol] 33.3 g/dL 32-36 [facility] Platelets bldOrdered By: Lyubov Burgos on 01-31-2022 Platelets (Bld) [#/Vol] 204 10*3/uL 150-450 [facility] Absolute lymphocyte countOrd ered By: Renard Burgos on 01-24-2022 Lymphocytes Auto (Unsp spec) [#/Vol] 1.82 10*3/uL 0.83-4.51 [facility] Basophil percentageOrdered B y: Renard Burgos on 01-24-2022 Basophils/100 WBC (Bld) 0.3 % 0-1 [facility] Eosinophils/100 WBC (Bld) 0.3 % 0-5 [facility] Neutrophils (Bld) [#/Vol] 6.1 10*3/uL 2.0-7.7 [facility] Neutrophils/100 WBC (Bld) 69.9 % 47-70 [facility] WBC (Bld) [#/Vol] 8.7 10*3/uL 4.4-11.0 [facility] Blood erythrocytes count (nu mber/volume)Ordered By: Renard Burgos on 01-24-2022 RBC (Bld) [#/Vol] 4.74 10*6/uL 4.6-6.2 [facility] Blood hemoglobin measurement (mass/volume)Ordered By: Renard Burgos on 01-24-2022 Hemoglobin (Bld) [Mass/Vol] 14.5 g/dL 13.0-16.5 [facility] Blood lymphocytes/100 leukoc ytesOrdered By: Renard Burgos on 01-24-2022 Lymphocytes/100 WBC (Bld) 20.9 % 19-41 [facility] Blood monocytes/100 leukocyt esOrdered By: Renard Burgos on 01-24-2022 Monocytes/100 WBC (Bld) 8.4 % 0-10 [facility] Blood platelet mean volumeOr dered By: Renard Burgos on 01-24-2022 Platelet mean volume (Bld) [Entitic vol] 10.9 fL 6.2-12.0 [facility] Determination of erythrocyte mean corpuscular volume (MCV)Ordered By: Renard Burgos on 01-24-2022 MCV (RBC) [Entitic vol] 92.0 fL 80-94 [facility] Hematocrit Auto (Bld) [Volum e fraction]Ordered By: Renard Burgos on 01-24-2022 Hematocrit (Bld) [Volume fraction] 43.6 % 40-54 [facility] Laboratory - Hematology and Cell countsOrdered By: Renard Burgos on 01-24-2022 Erythrocyte distribution width (RBC) [Entitic vol] 42.3 fL 35.1-43.9 [facility] Erythrocyte distribution width (RBC) [Ratio] 12.5 % 11.6-14.6 [facility] Immature granulocytes/100 WBC (Bld) 0.200 % 0.0-0.9 [facility] Comment on above: IG% - Immature Granu locytes (promyelocytes, myelocytes and metamyelocytes) > 1% indicates that a LEFT SHIFT is Present. MCH (RBC) [Entitic mass] 30.6 pg 27.0-32.0 [facility] Nucleated RBC/100 WBC (Bld) [Ratio] 0 % 0-5 [facility] MCHC Auto (RBC) [Mass/Vol]Or dered By: Renard Burgos on 01-24-2022 MCHC (RBC) [Mass/Vol] 33.3 g/dL 32-36 [facility] Platelets bldOrdered By: Lyubov Burgos on 01-24-2022 Platelets (Bld) [#/Vol] 192 10*3/uL 150-450 [facility] Absolute lymphocyte counton 01-17-2022 Lymphocytes Auto (Unsp spec) [#/Vol] 1.89 10*3/uL 0.83-4.51 [facility] Work Phone: Basophil percentageon 2021 Basophils/100 WBC (Bld) 0.4 % 0-1 [facility] Work Phone: [phone] Eosinophils/100 WBC (Bld) 0.3 % 0-5 [facility] Work Phone: [phone] Neutrophils (Bld) [#/Vol] 4.4 10*3/uL 2.0-7.7 [facility] Work Phone: [phone] Neutrophils/100 WBC (Bld) 62.4 % 47-70 [facility] Work Phone: [phone] WBC (Bld) [#/Vol] 7.0 10*3/uL 4.4-11.0 [facility]: Blood erythrocytes count (nu mber/volume)on 01-17-2022 RBC (Bld) [#/Vol] 4.64 10*6/uL 4.6-6.2 [facility] Work Phone: Blood hemoglobin measurement (mass/volume)on 01-17-2022 Hemoglobin (Bld) [Mass/Vol] 14.1 g/dL 13.0-16.5 [facility] Work Phone: Blood lymphocytes/100 leukoc yteson 01-17-2022 Lymphocytes/100 WBC (Bld) 27.0 % 19-41 [facility] Work Phone: [phone] Blood monocytes/100 leukocyt eson 01-17-2022 Monocytes/100 WBC (Bld) 9.3 % 0-10 [facility] Work Phone: Blood platelet mean volumeon 01-17-2022 Platelet mean volume (Bld) [Entitic vol] 11.1 fL 6.2-12.0 [facility] Work Phone: Determination of erythrocyte mean corpuscular volume (MCV)on 01-17-2022 MCV (RBC) [Entitic vol] 91.8 fL 80-94 [facility] Work Phone: Hematocrit Auto (Bld) [Volum e fraction]on 01-17-2022 Hematocrit (Bld) [Volume fraction] 42.6 % 40-54 [facility] Work Phone: Laboratory - Hematology and Cell countson 01-17-2022 Erythrocyte distribution width (RBC) [Entitic vol] 41.5 fL 35.1-43.9 [facility] Work Phone: Erythrocyte distribution width (RBC) [Ratio] 12.5 % 11.6-14.6 [facility] Work Phone: Immature granulocytes/100 WBC (Bld) 0.600 % 0.0-0.9 [facility] Work Phone: Comment on above: IG% - Immature Granu locytes (promyelocytes, myelocytes and metamyelocytes) > 1% indicates that a LEFT SHIFT is Present. MCH (RBC) [Entitic mass] 30.4 pg 27.0-32.0 [facility] Work Phone: Nucleated RBC/100 WBC (Bld) [Ratio] 0 % 0-5 [facility] Work Phone: MCHC Auto (RBC) [Mass/Vol]on 01-17-2022 MCHC (RBC) [Mass/Vol] 33.1 g/dL 32-36 [facility]: Platelets bldon 01-17-2022 Platelets (Bld) [#/Vol] 200 10*3/uL 150-450 [facility] Work Phone: Absolute lymphocyte counton 01-10-2022 Lymphocytes Auto (Unsp spec) [#/Vol] 2.07 10*3/uL 0.83-4.51 [facility] Work Phone: Basophil percentageon 2021 Basophils/100 WBC (Bld) 0.6 % 0-1 [facility] Work Phone: Eosinophils/100 WBC (Bld) 0.3 % 0-5 [facility] Work Phone: Neutrophils (Bld) [#/Vol] 4.2 10*3/uL 2.0-7.7 [facility] Work Phone: Neutrophils/100 WBC (Bld) 59.2 % 47-70 [facility] Work Phone: WBC (Bld) [#/Vol] 7.0 10*3/uL 4.4-11.0 [facility] Work Phone: Blood erythrocytes count (nu mber/volume)on 01-10-2022 RBC (Bld) [#/Vol] 4.83 10*6/uL 4.6-6.2 [facility] Work Phone: Blood hemoglobin measurement (mass/volume)on 01-10-2022 Hemoglobin (Bld) [Mass/Vol] 14.8 g/dL 13.0-16.5 [facility] Work Phone: Blood lymphocytes/100 leukoc yteson 01-10-2022 Lymphocytes/100 WBC (Bld) 29.5 % 19-41 [facility] Work Phone: Blood monocytes/100 leukocyt eson 01-10-2022 Monocytes/100 WBC (Bld) 10.1 % 0-10 [facility] Work Phone: Blood platelet mean volumeon 01-10-2022 Platelet mean volume (Bld) [Entitic vol] 10.8 fL 6.2-12.0 [facility] Work Phone: Determination of erythrocyte mean corpuscular volume (MCV)on 01-10-2022 MCV (RBC) [Entitic vol] 97.5 fL 80-94 [facility] Work Phone: Hematocrit Auto (Bld) [Volum e fraction]on 01-10-2022 Hematocrit (Bld) [Volume fraction] 47.1 % 40-54 [facility] Work Phone: Laboratory - Hematology and Cell countson 01-10-2022 Erythrocyte distribution width (RBC) [Entitic vol] 44.9 fL 35.1-43.9 [facility] Work Phone: Erythrocyte distribution width (RBC) [Ratio] 12.7 % 11.6-14.6 [facility] Work Phone: Immature granulocytes/100 WBC (Bld) 0.300 % 0.0-0.9 [facility] Work Phone: Comment on above: IG% - Immature Granu locytes (promyelocytes, myelocytes and metamyelocytes) > 1% indicates that a LEFT SHIFT is Present. MCH (RBC) [Entitic mass] 30.6 pg 27.0-32.0 [facility] Work Phone: [phone] Nucleated RBC/100 WBC (Bld) [Ratio] 0 % 0-5 [facility] Work Phone: MCHC Auto (RBC) [Mass/Vol]on 01-10-2022 MCHC (RBC) [Mass/Vol] 31.4 g/dL 32-36 [facility] Work Phone: Platelets bldon 01-10-2022 Platelets (Bld) [#/Vol] 169 10*3/uL 150-450 [facility] Work Phone: Absolute lymphocyte counton 01-04-2022 Lymphocytes Auto (Unsp spec) [#/Vol] 1.84 10*3/uL 0.83-4.51 [facility] Work Phone: Basophil percentageon 2021 Basophils/100 WBC (Bld) 0.3 % 0-1 [facility] Work Phone: Eosinophils/100 WBC (Bld) 0.3 % 0-5 [facility] Work Phone: Neutrophils (Bld) [#/Vol] 4.8 10*3/uL 2.0-7.7 [facility] Work Phone: Neutrophils/100 WBC (Bld) 64.8 % 47-70 [facility] Work Phone: WBC (Bld) [#/Vol] 7.4 10*3/uL 4.4-11.0 [facility]: Blood erythrocytes count (nu mber/volume)on 01-04-2022 RBC (Bld) [#/Vol] 4.67 10*6/uL 4.6-6.2 [facility] Work Phone: Blood hemoglobin measurement (mass/volume)on 01-04-2022 Hemoglobin (Bld) [Mass/Vol] 14.2 g/dL 13.0-16.5 [facility] Work Phone: Blood lymphocytes/100 leukoc yteson 01-04-2022 Lymphocytes/100 WBC (Bld) 25.0 % 19-41 [facility] Work Phone: Blood monocytes/100 leukocyt eson 01-04-2022 Monocytes/100 WBC (Bld) 9.1 % 0-10 [facility] Work Phone: Blood platelet mean volumeon 01-04-2022 Platelet mean volume (Bld) [Entitic vol] 11.0 fL 6.2-12.0 [facility] Work Phone: Determination of erythrocyte mean corpuscular volume (MCV)on 01-04-2022 MCV (RBC) [Entitic vol] 91.0 fL 80-94 [facility] Work Phone: Hematocrit Auto (Bld) [Volum e fraction]on 01-04-2022 Hematocrit (Bld) [Volume fraction] 42.5 % 40-54 [facility] Work Phone: Laboratory - Hematology and Cell countson 01-04-2022 Erythrocyte distribution width (RBC) [Entitic vol] 41.4 fL 35.1-43.9 [facility] Work Phone: Erythrocyte distribution width (RBC) [Ratio] 12.7 % 11.6-14.6 [facility] Work Phone: Immature granulocytes/100 WBC (Bld) 0.500 % 0.0-0.9 [facility] Work Phone: Comment on above: IG% - Immature Granu locytes (promyelocytes, myelocytes and metamyelocytes) > 1% indicates that a LEFT SHIFT is Present. MCH (RBC) [Entitic mass] 30.4 pg 27.0-32.0 [facility] Work Phone: Nucleated RBC/100 WBC (Bld) [Ratio] 0 % 0-5 [facility] Work Phone: MCHC Auto (RBC) [Mass/Vol]on 01-04-2022 MCHC (RBC) [Mass/Vol] 33.4 g/dL 32-36 [facility]: Platelets bldon 01-04-2022 Platelets (Bld) [#/Vol] 184 10*3/uL 150-450 [facility] Work Phone: Absolute lymphocyte counton 12-27-2021 Lymphocytes Auto (Unsp spec) [#/Vol] 1.79 10*3/uL 0.83-4.51 [facility] Work Phone: Basophil percentageon 2021 Basophils/100 WBC (Bld) 0.4 % 0-1 [facility] Work Phone: Eosinophils/100 WBC (Bld) 0.4 % 0-5 [facility] Work Phone: Neutrophils (Bld) [#/Vol] 4.9 10*3/uL 2.0-7.7 [facility] Work Phone: Neutrophils/100 WBC (Bld) 65.2 % 47-70 [facility] Work Phone: WBC (Bld) [#/Vol] 7.6 10*3/uL 4.4-11.0 [facility] Work [facility]: Blood erythrocytes count (nu mber/volume)on 12-27-2021 RBC (Bld) [#/Vol] 4.66 10*6/uL 4.6-6.2 [facility] Work Phone: Blood hemoglobin measurement (mass/volume)on 12-27-2021 Hemoglobin (Bld) [Mass/Vol] 14.5 g/dL 13.0-16.5 [facility] Work Phone: Blood lymphocytes/100 leukoc yteson 12-27-2021 Lymphocytes/100 WBC (Bld) 23.6 % 19-41 [facility] Work Phone: Blood monocytes/100 leukocyt eson 12-27-2021 Monocytes/100 WBC (Bld) 10.0 % 0-10 [facility] Work Phone: Blood platelet mean volumeon 12-27-2021 Platelet mean volume (Bld) [Entitic vol] 10.9 fL 6.2-12.0 [facility] Work Phone: Determination of erythrocyte mean corpuscular volume (MCV)on 12-27-2021 MCV (RBC) [Entitic vol] 91.0 fL 80-94 [facility] Work Phone: Hematocrit Auto (Bld) [Volum e fraction]on 12-27-2021 Hematocrit (Bld) [Volume fraction] 42.4 % 40-54 [facility] Work Phone: Laboratory - Hematology and Cell countson 12-27-2021 Erythrocyte distribution width (RBC) [Entitic vol] 41.2 fL 35.1-43.9 [facility] Work Phone: Erythrocyte distribution width (RBC) [Ratio] 12.6 % 11.6-14.6 [facility] Work Phone: Immature granulocytes/100 WBC (Bld) 0.400 % 0.0-0.9 [facility] Work Phone: Comment on above: IG% - Immature Granu locytes (promyelocytes, myelocytes and metamyelocytes) > 1% indicates that a LEFT SHIFT is Present. MCH (RBC) [Entitic mass] 31.1 pg 27.0-32.0 [facility] Work Phone: Nucleated RBC/100 WBC (Bld) [Ratio] 0 % 0-5 [facility] Work Phone: MCHC Auto (RBC) [Mass/Vol]on 12-27-2021 MCHC (RBC) [Mass/Vol] 34.2 g/dL 32-36 [facility] Work Phone: Platelets bldon 12-27-2021 Platelets (Bld) [#/Vol] 185 10*3/uL 150-450 [facility] Work Phone: Absolute lymphocyte counton 12-20-2021 Lymphocytes Auto (Unsp spec) [#/Vol] 2.02 10*3/uL 0.83-4.51 [facility] Work Phone: Basophil percentageon 2021 Basophils/100 WBC (Bld) 0.2 % 0-1 [facility] Work Phone: Eosinophils/100 WBC (Bld) 0.3 % 0-5 [facility] Work Phone: Neutrophils (Bld) [#/Vol] 3.6 10*3/uL 2.0-7.7 [facility] Work Phone: Neutrophils/100 WBC (Bld) 57.8 % 47-70 [facility] Work Phone: WBC (Bld) [#/Vol] 6.1 10*3/uL 4.4-11.0 [facility] Work Phone: Blood erythrocytes count (nu mber/volume)on 12-20-2021 RBC (Bld) [#/Vol] 4.81 10*6/uL 4.6-6.2 [facility] Work Phone: Blood hemoglobin measurement (mass/volume)on 12-20-2021 Hemoglobin (Bld) [Mass/Vol] 14.8 g/dL 13.0-16.5 [facility] Work Phone: Blood lymphocytes/100 leukoc yteson 12-20-2021 Lymphocytes/100 WBC (Bld) 32.9 % 19-41 [facility] Work Phone: Blood monocytes/100 leukocyt eson 12-20-2021 Monocytes/100 WBC (Bld) 8.3 % 0-10 [facility] Work Phone: Blood platelet adequacy dete ction by light microscopyon 12-20-2021 Platelets LM Ql (Bld) ADEQUATE ADEQ [facility] Work Phone: Blood platelet mean volumeon 12-20-2021 Platelet mean volume (Bld) [Entitic vol] 11.1 fL 6.2-12.0 [facility] Work Phone: Determination of erythrocyte mean corpuscular volume (MCV)on 12-20-2021 MCV (RBC) [Entitic vol] 93.1 fL 80-94 [facility] Work Phone: Hematocrit Auto (Bld) [Volum e fraction]on 12-20-2021 Hematocrit (Bld) [Volume fraction] 44.8 % 40-54 [facility] Work Phone: Laboratory - Hematology and Cell countson 12-20-2021 Erythrocyte distribution width (RBC) [Entitic vol] 42.4 fL 35.1-43.9 [facility] Work Phone: Erythrocyte distribution width (RBC) [Ratio] 12.4 % 11.6-14.6 [facility] Work Phone: Immature granulocytes/100 WBC (Bld) 0.500 % 0.0-0.9 [facility] Work Phone: Comment on above: IG% - Immature Granu locytes (promyelocytes, myelocytes and metamyelocytes) > 1% indicates that a LEFT SHIFT is Present. MCH (RBC) [Entitic mass] 30.8 pg 27.0-32.0 [facility] Work Phone: [phone] Nucleated RBC/100 WBC (Bld) [Ratio] 0 % 0-5 [facility] Work Phone: [phone] MCHC Auto (RBC) [Mass/Vol]on 12-20-2021 MCHC (RBC) [Mass/Vol] 33.0 g/dL 32-36 [facility] Work Phone: [phone] Platelets bldon 12-20-2021 Platelets (Bld) [#/Vol] See comment 150-450 [facility] Work Phone: Comment on above: Please [...] spec) [#/Vol] 1.88 10*3/uL 0.83-4.51 [facility] Work Phone: Basophil percentageon 2021 Basophils/100 WBC (Bld) 0.6 % 0-1 [facility] Work Phone: [phone] Eosinophils/100 WBC (Bld) 0.3 % 0-5 [facility] Work Phone: [phone] Neutrophils (Bld) [#/Vol] 4.5 10*3/uL 2.0-7.7 [facility] Work Phone: Neutrophils/100 WBC (Bld) 63.6 % 47-70 [facility] Work Phone: WBC (Bld) [#/Vol] 7.1 10*3/uL 4.4-11.0 [facility] Work Phone: [phone] Blood erythrocytes count (nu mber/volume)on 12-13-2021 RBC (Bld) [#/Vol] 4.70 10*6/uL 4.6-6.2 [facility] Work Phone: Blood hemoglobin measurement (mass/volume)on 12-13-2021 Hemoglobin (Bld) [Mass/Vol] 14.4 g/dL 13.0-16.5 [facility] Work Phone: Blood lymphocytes/100 leukoc yteson 12-13-2021 Lymphocytes/100 WBC (Bld) 26.7 % 19-41 [facility] Work Phone: Blood monocytes/100 leukocyt eson 12-13-2021 Monocytes/100 WBC (Bld) 8.5 % 0-10 [facility] Work Phone: Blood platelet mean volumeon 12-13-2021 Platelet mean volume (Bld) [Entitic vol] 10.9 fL 6.2-12.0 [facility] Work Phone: Determination of erythrocyte mean corpuscular volume (MCV)on 12-13-2021 MCV (RBC) [Entitic vol] 90.9 fL 80-94 [facility] Work Phone: Hematocrit Auto (Bld) [Volum e fraction]on 12-13-2021 Hematocrit (Bld) [Volume fraction] 42.7 % 40-54 [facility] Work Phone: Laboratory - Hematology and Cell countson 12-13-2021 Erythrocyte distribution width (RBC) [Entitic vol] 42.1 fL 35.1-43.9 [facility] Work Phone: Erythrocyte distribution width (RBC) [Ratio] 12.6 % 11.6-14.6 [facility] Work Phone: Immature granulocytes/100 WBC (Bld) 0.300 % 0.0-0.9 [facility] Work Phone: Comment on above: IG% - Immature Granu locytes (promyelocytes, myelocytes and metamyelocytes) > 1% indicates that a LEFT SHIFT is Present. MCH (RBC) [Entitic mass] 30.6 pg 27.0-32.0 [facility] Work Phone: Nucleated RBC/100 WBC (Bld) [Ratio] 0 % 0-5 [facility] Work Phone: MCHC Auto (RBC) [Mass/Vol]on 12-13-2021 MCHC (RBC) [Mass/Vol] 33.7 g/dL 32-36 [facility] Work Phone: Platelets bldon 12-13-2021 Platelets (Bld) [#/Vol] 194 10*3/uL 150-450 [facility] Work Phone: Absolute lymphocyte counton 12-06-2021 Lymphocytes Auto (Unsp spec) [#/Vol] 1.91 10*3/uL 0.83-4.51 [facility] Work Phone: Basophil percentageon 2021 Basophils/100 WBC (Bld) 0.4 % 0-1 [facility] Work Phone: Eosinophils/100 WBC (Bld) 0.3 % 0-5 [facility] Work Phone: Neutrophils (Bld) [#/Vol] 4.4 10*3/uL 2.0-7.7 [facility] Work Phone: Neutrophils/100 WBC (Bld) 62.2 % 47-70 [facility] Work Phone: WBC (Bld) [#/Vol] 7.0 10*3/uL 4.4-11.0 [facility] Work Phone: Blood erythrocytes count (nu mber/volume)on 12-06-2021 RBC (Bld) [#/Vol] 4.58 10*6/uL 4.6-6.2 [facility] Work Phone: Blood hemoglobin measurement (mass/volume)on 12-06-2021 Hemoglobin (Bld) [Mass/Vol] 13.8 g/dL 13.0-16.5 [facility] Work Phone: Blood lymphocytes/100 leukoc yteson 12-06-2021 Lymphocytes/100 WBC (Bld) 27.2 % 19-41 [facility] Work Phone: Blood monocytes/100 leukocyt eson 12-06-2021 Monocytes/100 WBC (Bld) 9.6 % 0-10 [facility] Work Phone: Blood platelet mean volumeon 12-06-2021 Platelet mean volume (Bld) [Entitic vol] 11.1 fL 6.2-12.0 [facility] Work Phone: Determination of erythrocyte mean corpuscular volume (MCV)on 12-06-2021 MCV (RBC) [Entitic vol] 92.1 fL 80-94 [facility] Work Phone: Hematocrit Auto (Bld) [Volum e fraction]on 12-06-2021 Hematocrit (Bld) [Volume fraction] 42.2 % 40-54 [facility] Work Phone: Laboratory - Hematology and Cell countson 12-06-2021 Erythrocyte distribution width (RBC) [Entitic vol] 42.1 fL 35.1-43.9 [facility] Work Phone: Erythrocyte distribution width (RBC) [Ratio] 12.6 % 11.6-14.6 [facility] Work Phone: Immature granulocytes/100 WBC (Bld) 0.300 % 0.0-0.9 [facility] Work Phone: Comment on above: IG% - Immature Granu locytes (promyelocytes, myelocytes and metamyelocytes) > 1% indicates that a LEFT SHIFT is Present. MCH (RBC) [Entitic mass] 30.1 pg 27.0-32.0 [facility] Work Phone: Nucleated RBC/100 WBC (Bld) [Ratio] 0 % 0-5 [facility] Work Phone: MCHC Auto (RBC) [Mass/Vol]on 12-06-2021 MCHC (RBC) [Mass/Vol] 32.7 g/dL 32-36 [facility] Work Phone: [phone] Platelets bldon 12-06-2021 Platelets (Bld) [#/Vol] 180 10*3/uL 150-450 [facility] Work Phone: [phone] Absolute lymphocyte counton 11-29-2021 Lymphocytes Auto (Unsp spec) [#/Vol] 2.00 10*3/uL 0.83-4.51 [facility] Work Phone: Basophil percentageon 2021 Basophils/100 WBC (Bld) 0.4 % 0-1 [facility] Work Phone: [phone] Eosinophils/100 WBC (Bld) 0.3 % 0-5 [facility] Work Phone: [phone] Neutrophils (Bld) [#/Vol] 4.4 10*3/uL 2.0-7.7 [facility] Work Phone: [phone] Neutrophils/100 WBC (Bld) 62.8 % 47-70 [facility] Work Phone: [phone] WBC (Bld) [#/Vol] 7.0 10*3/uL 4.4-11.0 [facility] Work Phone: [phone] Blood erythrocytes count (nu mber/volume)on 11-29-2021 RBC (Bld) [#/Vol] 4.72 10*6/uL 4.6-6.2 [facility] Work Phone: [phone] Blood hemoglobin measurement (mass/volume)on 11-29-2021 Hemoglobin (Bld) [Mass/Vol] 14.6 g/dL 13.0-16.5 [facility] Work Phone: [phone] Blood lymphocytes/100 leukoc yteson 11-29-2021 Lymphocytes/100 WBC (Bld) 28.6 % 19-41 [facility] Work Phone: [phone] Blood monocytes/100 leukocyt eson 11-29-2021 Monocytes/100 WBC (Bld) 7.6 % 0-10 [facility] Work Phone: Blood platelet mean volumeon 11-29-2021 Platelet mean volume (Bld) [Entitic vol] 11.1 fL 6.2-12.0 [facility] Work Phone: Determination of erythrocyte mean corpuscular volume (MCV)on 11-29-2021 MCV (RBC) [Entitic vol] 91.9 fL 80-94 [facility] Work Phone: Hematocrit Auto (Bld) [Volum e fraction]on 11-29-2021 Hematocrit (Bld) [Volume fraction] 43.4 % 40-54 [facility] Work Phone: Laboratory - Hematology and Cell countson 11-29-2021 Erythrocyte distribution width (RBC) [Entitic vol] 41.8 fL 35.1-43.9 [facility] Work Phone: Erythrocyte distribution width (RBC) [Ratio] 12.4 % 11.6-14.6 [facility] Work Phone: Immature granulocytes/100 WBC (Bld) 0.300 % 0.0-0.9 [facility] Work Phone: Comment on above: IG% - Immature Granu locytes (promyelocytes, myelocytes and metamyelocytes) > 1% indicates that a LEFT SHIFT is Present. MCH (RBC) [Entitic mass] 30.9 pg 27.0-32.0 [facility] Work Phone: Nucleated RBC/100 WBC (Bld) [Ratio] 0 % 0-5 [facility] Work Phone: MCHC Auto (RBC) [Mass/Vol]on 11-29-2021 MCHC (RBC) [Mass/Vol] 33.6 g/dL 32-36 [facility] Work Phone: Platelets bldon 11-29-2021 Platelets (Bld) [#/Vol] 205 10*3/uL 150-450 [facility] Work Phone: Absolute lymphocyte counton 11-22-2021 Lymphocytes Auto (Unsp spec) [#/Vol] 2.25 10*3/uL 0.83-4.51 [facility] Work Phone: Basophil percentageon 2021 Basophils/100 WBC (Bld) 0.4 % 0-1 [facility] Work Phone: Eosinophils/100 WBC (Bld) 0.4 % 0-5 [facility] Work Phone: Neutrophils (Bld) [#/Vol] 5.1 10*3/uL 2.0-7.7 [facility] Work Phone: Neutrophils/100 WBC (Bld) 61.7 % 47-70 [facility] Work Phone: WBC (Bld) [#/Vol] 8.3 10*3/uL 4.4-11.0 [facility]: Blood erythrocytes count (nu mber/volume)on 11-22-2021 RBC (Bld) [#/Vol] 4.47 10*6/uL 4.6-6.2 [facility] Work Phone: Blood hemoglobin measurement (mass/volume)on 11-22-2021 Hemoglobin (Bld) [Mass/Vol] 13.5 g/dL 13.0-16.5 [facility] Work Phone: Blood lymphocytes/100 leukoc yteson 11-22-2021 Lymphocytes/100 WBC (Bld) 27.2 % 19-41 [facility] Work Phone: Blood monocytes/100 leukocyt eson 11-22-2021 Monocytes/100 WBC (Bld) 9.9 % 0-10 [facility] Work Phone: Blood platelet mean volumeon 11-22-2021 Platelet mean volume (Bld) [Entitic vol] 11.1 fL 6.2-12.0 [facility] Work Phone: Determination of erythrocyte mean corpuscular volume (MCV)on 11-22-2021 MCV (RBC) [Entitic vol] 92.2 fL 80-94 [facility] Work Phone: Hematocrit Auto (Bld) [Volum e fraction]on 11-22-2021 Hematocrit (Bld) [Volume fraction] 41.2 % 40-54 [facility] Work Phone: Laboratory - Hematology and Cell countson 11-22-2021 Erythrocyte distribution width (RBC) [Entitic vol] 42.3 fL 35.1-43.9 [facility] Work Phone: Erythrocyte distribution width (RBC) [Ratio] 12.6 % 11.6-14.6 [facility] Work Phone: Immature granulocytes/100 WBC (Bld) 0.400 % 0.0-0.9 [facility] Work Phone: Comment on above: IG% - Immature Granu locytes (promyelocytes, myelocytes and metamyelocytes) > 1% indicates that a LEFT SHIFT is Present. MCH (RBC) [Entitic mass] 30.2 pg 27.0-32.0 [facility] Work Phone: Nucleated RBC/100 WBC (Bld) [Ratio] 0 % 0-5 [facility] Work Phone: MCHC Auto (RBC) [Mass/Vol]on 11-22-2021 MCHC (RBC) [Mass/Vol] 32.8 g/dL 32-36 [facility] Work Phone: Platelets bldon 11-22-2021 Platelets (Bld) [#/Vol] 190 10*3/uL 150-450 [facility] Work Phone: Absolute lymphocyte counton 11-15-2021 Lymphocytes Auto (Unsp spec) [#/Vol] 2.09 10*3/uL 0.83-4.51 [facility] Work Phone: Basophil percentageon 2021 Basophils/100 WBC (Bld) 0.6 % 0-1 [facility] Work Phone: Eosinophils/100 WBC (Bld) 0.4 % 0-5 [facility] Work Phone: [phone] Neutrophils (Bld) [#/Vol] 4.2 10*3/uL 2.0-7.7 [facility] Work Phone: Neutrophils/100 WBC (Bld) 59.1 % 47-70 [facility] Work Phone: [phone] WBC (Bld) [#/Vol] 7.1 10*3/uL 4.4-11.0 [facility] Work Phone: Blood erythrocytes count (nu mber/volume)on 11-15-2021 RBC (Bld) [#/Vol] 4.72 10*6/uL 4.6-6.2 [facility] Work Phone: [phone] Blood hemoglobin measurement (mass/volume)on 11-15-2021 Hemoglobin (Bld) [Mass/Vol] 14.6 g/dL 13.0-16.5 [facility] Work Phone: Blood lymphocytes/100 leukoc yteson 11-15-2021 Lymphocytes/100 WBC (Bld) 29.4 % 19-41 [facility] Work Phone: Blood monocytes/100 leukocyt eson 11-15-2021 Monocytes/100 WBC (Bld) 10.1 % 0-10 [facility] Work Phone: Blood platelet mean volumeon 11-15-2021 Platelet mean volume (Bld) [Entitic vol] 10.7 fL 6.2-12.0 [facility] Work Phone: Determination of erythrocyte mean corpuscular volume (MCV)on 11-15-2021 MCV (RBC) [Entitic vol] 91.9 fL 80-94 [facility] Work Phone: Hematocrit Auto (Bld) [Volum e fraction]on 11-15-2021 Hematocrit (Bld) [Volume fraction] 43.4 % 40-54 [facility] Work Phone: [phone] Laboratory - Hematology and Cell countson 11-15-2021 Erythrocyte distribution width (RBC) [Entitic vol] 41.9 fL 35.1-43.9 [facility] Work Phone: [phone] Erythrocyte distribution width (RBC) [Ratio] 12.4 % 11.6-14.6 [facility] Work Phone: [phone] Immature granulocytes/100 WBC (Bld) 0.400 % 0.0-0.9 [facility] Work Phone: Comment on above: IG% - Immature Granu locytes (promyelocytes, myelocytes and metamyelocytes) > 1% indicates that a LEFT SHIFT is Present. MCH (RBC) [Entitic mass] 30.9 pg 27.0-32.0 [facility] Work Phone: Nucleated RBC/100 WBC (Bld) [Ratio] 0 % 0-5 [facility] Work Phone: MCHC Auto (RBC) [Mass/Vol]on 11-15-2021 MCHC (RBC) [Mass/Vol] 33.6 g/dL 32-36 [facility]: Platelets bldon 11-15-2021 Platelets (Bld) [#/Vol] 191 10*3/uL 150-450 [facility] Work Phone: Absolute lymphocyte counton 11-08-2021 Lymphocytes Auto (Unsp spec) [#/Vol] 1.97 10*3/uL 0.83-4.51 [facility] Work Phone: Basophil percentageon 2021 Basophils/100 WBC (Bld) 0.3 % 0-1 [facility] Work Phone: Eosinophils/100 WBC (Bld) 0.3 % 0-5 [facility] Work Phone: Neutrophils (Bld) [#/Vol] 5.1 10*3/uL 2.0-7.7 [facility] Work Phone: Neutrophils/100 WBC (Bld) 64.6 % 47-70 [facility] Work Phone: WBC (Bld) [#/Vol] 7.8 10*3/uL 4.4-11.0 [facility] Work Phone: Blood erythrocytes count (nu mber/volume)on 11-08-2021 RBC (Bld) [#/Vol] 4.53 10*6/uL 4.6-6.2 [facility] Work Phone: Blood hemoglobin measurement (mass/volume)on 11-08-2021 Hemoglobin (Bld) [Mass/Vol] 14.2 g/dL 13.0-16.5 [facility] Work Phone: Blood lymphocytes/100 leukoc yteson 11-08-2021 Lymphocytes/100 WBC (Bld) 25.2 % 19-41 [facility] Work Phone: Blood monocytes/100 leukocyt eson 11-08-2021 Monocytes/100 WBC (Bld) 9.3 % 0-10 [facility] Work Phone: Blood platelet mean volumeon 11-08-2021 Platelet mean volume (Bld) [Entitic vol] 10.9 fL 6.2-12.0 [facility] Work Phone: Determination of erythrocyte mean corpuscular volume (MCV)on 11-08-2021 MCV (RBC) [Entitic vol] 92.7 fL 80-94 [facility] Work Phone: Hematocrit Auto (Bld) [Volum e fraction]on 11-08-2021 Hematocrit (Bld) [Volume fraction] 42.0 % 40-54 [facility] Work Phone: Laboratory - Hematology and Cell countson 11-08-2021 Erythrocyte distribution width (RBC) [Entitic vol] 42.3 fL 35.1-43.9 [facility] Work Phone: Erythrocyte distribution width (RBC) [Ratio] 12.5 % 11.6-14.6 [facility] Work Phone: Immature granulocytes/100 WBC (Bld) 0.300 % 0.0-0.9 [facility] Work Phone: Comment on above: IG% - Immature Granu locytes (promyelocytes, myelocytes and metamyelocytes) > 1% indicates that a LEFT SHIFT is Present. MCH (RBC) [Entitic mass] 31.3 pg 27.0-32.0 [facility] Work Phone: Nucleated RBC/100 WBC (Bld) [Ratio] 0 % 0-5 [facility] Work Phone: MCHC Auto (RBC) [Mass/Vol]on 11-08-2021 MCHC (RBC) [Mass/Vol] 33.8 g/dL 32-36 [facility] Work Phone: Platelets bldon 11-08-2021 Platelets (Bld) [#/Vol] 207 10*3/uL 150-450 [facility] Work Phone: Absolute lymphocyte counton 10-25-2021 Lymphocytes Auto (Unsp spec) [#/Vol] 2.05 10*3/uL 0.83-4.51 [facility] Work Phone: Basophil percentageon 2021 Basophils/100 WBC (Bld) 0.4 % 0-1 [facility] Work Phone: Eosinophils/100 WBC (Bld) 0.3 % 0-5 [facility] Work Phone: Neutrophils (Bld) [#/Vol] 4.2 10*3/uL 2.0-7.7 [facility] Work Phone: Neutrophils/100 WBC (Bld) 61.3 % 47-70 [facility] Work Phone: WBC (Bld) [#/Vol] 6.8 10*3/uL 4.4-11.0 [facility] Work Phone: Blood erythrocytes count (nu mber/volume)on 10-25-2021 RBC (Bld) [#/Vol] 4.56 10*6/uL 4.6-6.2 [facility] Work Phone: Blood hemoglobin measurement (mass/volume)on 10-25-2021 Hemoglobin (Bld) [Mass/Vol] 13.9 g/dL 13.0-16.5 [facility] Work Phone: Blood lymphocytes/100 leukoc yteson 10-25-2021 Lymphocytes/100 WBC (Bld) 30.1 % 19-41 [facility] Work Phone: Blood monocytes/100 leukocyt eson 10-25-2021 Monocytes/100 WBC (Bld) 7.3 % 0-10 [facility] Work Phone: Blood platelet mean volumeon 10-25-2021 Platelet mean volume (Bld) [Entitic vol] 10.6 fL 6.2-12.0 [facility] Work Phone: Determination of erythrocyte mean corpuscular volume (MCV)on 10-25-2021 MCV (RBC) [Entitic vol] 91.0 fL 80-94 [facility] Work Phone: Hematocrit Auto (Bld) [Volum e fraction]on 10-25-2021 Hematocrit (Bld) [Volume fraction] 41.5 % 40-54 [facility] Work Phone: Laboratory - Hematology and Cell countson 10-25-2021 Erythrocyte distribution width (RBC) [Entitic vol] 41.7 fL 35.1-43.9 [facility] Work Phone: Erythrocyte distribution width (RBC) [Ratio] 12.6 % 11.6-14.6 [facility] Work Phone: Immature granulocytes/100 WBC (Bld) 0.600 % 0.0-0.9 [facility] Work Phone: Comment on above: IG% - Immature Granu locytes (promyelocytes, myelocytes and metamyelocytes) > 1% indicates that a LEFT SHIFT is Present. MCH (RBC) [Entitic mass] 30.5 pg 27.0-32.0 [facility] Work Phone: Nucleated RBC/100 WBC (Bld) [Ratio] 0 % 0-5 [facility] Work Phone: [phone] MCHC Auto (RBC) [Mass/Vol]on 10-25-2021 MCHC (RBC) [Mass/Vol] 33.5 g/dL 32-36 [facility] Work Phone: Platelets bldon 10-25-2021 Platelets (Bld) [#/Vol] 191 10*3/uL 150-450 [facility] Work Phone: Absolute lymphocyte counton 10-18-2021 Lymphocytes Auto (Unsp spec) [#/Vol] 1.66 10*3/uL 0.83-4.51 [facility] Work Phone: Basophil percentageon 2021 Basophils/100 WBC (Bld) 0.5 % 0-1 [facility] Work Phone: Eosinophils/100 WBC (Bld) 0.2 % 0-5 [facility] Work Phone: Neutrophils (Bld) [#/Vol] 4.3 10*3/uL 2.0-7.7 [facility] Work Phone: Neutrophils/100 WBC (Bld) 65.0 % 47-70 [facility] Work Phone: WBC (Bld) [#/Vol] 6.6 10*3/uL 4.4-11.0 [facility] Work Phone: [phone] Blood erythrocytes count (nu mber/volume)on 10-18-2021 RBC (Bld) [#/Vol] 4.57 10*6/uL 4.6-6.2 [facility] Work Phone: [phone] Blood hemoglobin measurement (mass/volume)on 10-18-2021 Hemoglobin (Bld) [Mass/Vol] 14.1 g/dL 13.0-16.5 [facility] Work Phone: Blood lymphocytes/100 leukoc yteson 10-18-2021 Lymphocytes/100 WBC (Bld) 25.2 % 19-41 [facility] Work Phone: Blood monocytes/100 leukocyt eson 10-18-2021 Monocytes/100 WBC (Bld) 8.8 % 0-10 [facility] Work Phone: Blood platelet mean volumeon 10-18-2021 Platelet mean volume (Bld) [Entitic vol] 10.6 fL 6.2-12.0 [facility] Work Phone: Determination of erythrocyte mean corpuscular volume (MCV)on 10-18-2021 MCV (RBC) [Entitic vol] 91.7 fL 80-94 [facility] Work Phone: Hematocrit Auto (Bld) [Volum e fraction]on 10-18-2021 Hematocrit (Bld) [Volume fraction] 41.9 % 40-54 [facility] Work Phone: Laboratory - Hematology and Cell countson 10-18-2021 Erythrocyte distribution width (RBC) [Entitic vol] 41.6 fL 35.1-43.9 [facility] Work Phone: Erythrocyte distribution width (RBC) [Ratio] 12.5 % 11.6-14.6 [facility] Work Phone: Immature granulocytes/100 WBC (Bld) 0.300 % 0.0-0.9 [facility] Work Phone: Comment on above: IG% - Immature Granu locytes (promyelocytes, myelocytes and metamyelocytes) > 1% indicates that a LEFT SHIFT is Present. MCH (RBC) [Entitic mass] 30.9 pg 27.0-32.0 [facility] Work Phone: Nucleated RBC/100 WBC (Bld) [Ratio] 0 % 0-5 [facility] Work Phone: MCHC Auto (RBC) [Mass/Vol]on 10-18-2021 MCHC (RBC) [Mass/Vol] 33.7 g/dL 32-36 [facility] Work Phone: [phone] Platelets bldon 10-18-2021 Platelets (Bld) [#/Vol] 185 10*3/uL 150-450 [facility] Work Phone: Absolute lymphocyte counton 10-11-2021 Lymphocytes Auto (Unsp spec) [#/Vol] 1.66 10*3/uL 0.83-4.51 [facility] Work Phone: [phone] Basophil percentageon 2021 Basophils/100 WBC (Bld) 0.5 % 0-1 [facility] Work Phone: [phone] Eosinophils/100 WBC (Bld) 0.1 % 0-5 [facility] Work Phone: [phone] Neutrophils (Bld) [#/Vol] 5.9 10*3/uL 2.0-7.7 [facility] Work Phone: [phone] Neutrophils/100 WBC (Bld) 70.8 % 47-70 [facility] [facility] Work Phone: [phone] WBC (Bld) [#/Vol] 8.3 10*3/uL 4.4-11.0 [facility] Work Phone: Blood erythrocytes count (nu mber/volume)on 10-11-2021 RBC (Bld) [#/Vol] 4.66 10*6/uL 4.6-6.2 [facility] Work Phone: [phone] Blood hemoglobin measurement (mass/volume)on 10-11-2021 Hemoglobin (Bld) [Mass/Vol] 14.1 g/dL 13.0-16.5 [facility] Work Phone: [phone] Blood lymphocytes/100 leukoc yteson 10-11-2021 Lymphocytes/100 WBC (Bld) 20.0 % 19-41 [facility] Work Phone: Blood monocytes/100 leukocyt eson 10-11-2021 Monocytes/100 WBC (Bld) 8.2 % 0-10 [facility] Work Phone: Blood platelet mean volumeon 10-11-2021 Platelet mean volume (Bld) [Entitic vol] 10.7 fL 6.2-12.0 [facility] Work Phone: Determination of erythrocyte mean corpuscular volume (MCV)on 10-11-2021 MCV (RBC) [Entitic vol] 91.8 fL 80-94 [facility] Work Phone: Hematocrit Auto (Bld) [Volum e fraction]on 10-11-2021 Hematocrit (Bld) [Volume fraction] 42.8 % 40-54 [facility] Work Phone: Laboratory - Hematology and Cell countson 10-11-2021 Erythrocyte distribution width (RBC) [Entitic vol] 42.8 fL 35.1-43.9 [facility] Work Phone: Erythrocyte distribution width (RBC) [Ratio] 12.8 % 11.6-14.6 [facility] Work Phone: Immature granulocytes/100 WBC (Bld) 0.400 % 0.0-0.9 [facility] Work Phone: Comment on above: IG% - Immature Granu locytes (promyelocytes, myelocytes and metamyelocytes) > 1% indicates that a LEFT SHIFT is Present. MCH (RBC) [Entitic mass] 30.3 pg 27.0-32.0 [facility] Work Phone: Nucleated RBC/100 WBC (Bld) [Ratio] 0 % 0-5 [facility] Work Phone: MCHC Auto (RBC) [Mass/Vol]on 10-11-2021 MCHC (RBC) [Mass/Vol] 32.9 g/dL 32-36 [facility]: Platelets bldon 10-11-2021 Platelets (Bld) [#/Vol] 193 10*3/uL 150-450 [facility] Work Phone: [phone] Absolute lymphocyte counton 10-04-2021 Lymphocytes Auto (Unsp spec) [#/Vol] 1.97 10*3/uL 0.83-4.51 [facility] Work Phone: [phone] Basophil percentageon 2021 Basophils/100 WBC (Bld) 0.5 % 0-1 [facility] Work Phone: Eosinophils/100 WBC (Bld) 0.1 % 0-5 [facility] Work Phone: [phone] Neutrophils (Bld) [#/Vol] 5.0 10*3/uL 2.0-7.7 [facility] Work Phone: [phone] Neutrophils/100 WBC (Bld) 64.4 % 47-70 [facility] Work Phone: [phone] WBC (Bld) [#/Vol] 7.7 10*3/uL 4.4-11.0 [facility]: Blood erythrocytes count (nu mber/volume)on 10-04-2021 RBC (Bld) [#/Vol] 4.52 10*6/uL 4.6-6.2 [facility] Work Phone: Blood hemoglobin measurement (mass/volume)on 10-04-2021 Hemoglobin (Bld) [Mass/Vol] 13.9 g/dL 13.0-16.5 [facility] Work Phone: [phone] Blood lymphocytes/100 leukoc yteson 10-04-2021 Lymphocytes/100 WBC (Bld) 25.6 % 19-41 [facility] Work Phone: [phone] Blood monocytes/100 leukocyt eson 10-04-2021 Monocytes/100 WBC (Bld) 9.0 % 0-10 [facility] Work Phone: Blood platelet mean volumeon 10-04-2021 Platelet mean volume (Bld) [Entitic vol] 11.0 fL 6.2-12.0 [facility] Work Phone: Determination of erythrocyte mean corpuscular volume (MCV)on 10-04-2021 MCV (RBC) [Entitic vol] 91.4 fL 80-94 [facility] Work Phone: Hematocrit Auto (Bld) [Volum e fraction]on 10-04-2021 Hematocrit (Bld) [Volume fraction] 41.3 % 40-54 [facility] Work Phone: Laboratory - Hematology and Cell countson 10-04-2021 Erythrocyte distribution width (RBC) [Entitic vol] 42.2 fL 35.1-43.9 [facility] Work Phone: Erythrocyte distribution width (RBC) [Ratio] 12.8 % 11.6-14.6 [facility] Work Phone: Immature granulocytes/100 WBC (Bld) 0.400 % 0.0-0.9 [facility] Work Phone: Comment on above: IG% - Immature Granu locytes (promyelocytes, myelocytes and metamyelocytes) > 1% indicates that a LEFT SHIFT is Present. MCH (RBC) [Entitic mass] 30.8 pg 27.0-32.0 [facility] Work Phone: Nucleated RBC/100 WBC (Bld) [Ratio] 0 % 0-5 [facility] Work Phone: MCHC Auto (RBC) [Mass/Vol]on 10-04-2021 MCHC (RBC) [Mass/Vol] 33.7 g/dL 32-36 [facility]: Platelets bldon 10-04-2021 Platelets (Bld) [#/Vol] 179 10*3/uL 150-450 [facility] Work Phone: Absolute lymphocyte counton 09-28-2021 Lymphocytes Auto (Unsp spec) [#/Vol] 2.10 10*3/uL 0.83-4.51 [facility] Work Phone: Basophil percentageon 2021 Basophils/100 WBC (Bld) 0.4 % 0-1 [facility] Work Phone: Eosinophils/100 WBC (Bld) 0.3 % 0-5 [facility] Work Phone: Neutrophils (Bld) [#/Vol] 4.3 10*3/uL 2.0-7.7 [facility] Work Phone: Neutrophils/100 WBC (Bld) 59.9 % 47-70 [facility] Work Phone: WBC (Bld) [#/Vol] 7.2 10*3/uL 4.4-11.0 [facility] Work [facility]: Blood erythrocytes count (nu mber/volume)on 09-28-2021 RBC (Bld) [#/Vol] 4.34 10*6/uL 4.6-6.2 [facility] Work Phone: Blood hemoglobin measurement (mass/volume)on 09-28-2021 Hemoglobin (Bld) [Mass/Vol] 13.3 g/dL 13.0-16.5 [facility] Work Phone: Blood lymphocytes/100 leukoc yteson 09-28-2021 Lymphocytes/100 WBC (Bld) 29.3 % 19-41 [facility] Work Phone: Blood monocytes/100 leukocyt eson 09-28-2021 Monocytes/100 WBC (Bld) 9.8 % 0-10 [facility] Work Phone: Blood platelet mean volumeon 09-28-2021 Platelet mean volume (Bld) [Entitic vol] 10.7 fL 6.2-12.0 [facility] Work Phone: Determination of erythrocyte mean corpuscular volume (MCV)on 09-28-2021 MCV (RBC) [Entitic vol] 91.2 fL 80-94 [facility] Work Phone: Hematocrit Auto (Bld) [Volum e fraction]on 09-28-2021 Hematocrit (Bld) [Volume fraction] 39.6 % 40-54 [facility] Work Phone: Laboratory - Hematology and Cell countson 09-28-2021 Erythrocyte distribution width (RBC) [Entitic vol] 41.8 fL 35.1-43.9 [facility] Work Phone: Erythrocyte distribution width (RBC) [Ratio] 12.6 % 11.6-14.6 [facility] Work Phone: Immature granulocytes/100 WBC (Bld) 0.300 % 0.0-0.9 [facility] Work Phone: Comment on above: IG% - Immature Granu locytes (promyelocytes, myelocytes and metamyelocytes) > 1% indicates that a LEFT SHIFT is Present. MCH (RBC) [Entitic mass] 30.6 pg 27.0-32.0 [facility] Work Phone: Nucleated RBC/100 WBC (Bld) [Ratio] 0 % 0-5 [facility] Work Phone: MCHC Auto (RBC) [Mass/Vol]on 09-28-2021 MCHC (RBC) [Mass/Vol] 33.6 g/dL 32-36 [facility] [place] Work Phone: [phone] Platelets bldon 09-28-2021 Platelets (Bld) [#/Vol] 181 10*3/uL 150-450 [facility] Work Phone: Absolute lymphocyte counton 09-20-2021 Lymphocytes Auto (Unsp spec) [#/Vol] 1.79 10*3/uL 0.83-4.51 [facility] Work Phone: Basophil percentageon 2021 Basophils/100 WBC (Bld) 0.4 % 0-1 [facility] Work Phone: [phone] Eosinophils/100 WBC (Bld) 0.3 % 0-5 [facility] Work Phone: Neutrophils (Bld) [#/Vol] 4.1 10*3/uL 2.0-7.7 [facility] Work Phone: Neutrophils/100 WBC (Bld) 61.3 % 47-70 [facility] Work Phone: WBC (Bld) [#/Vol] 6.7 10*3/uL 4.4-11.0 [facility] Work [facility]: Blood erythrocytes count (nu mber/volume)on 09-20-2021 RBC (Bld) [#/Vol] 4.32 10*6/uL 4.6-6.2 [facility] Work Phone: Blood hemoglobin measurement (mass/volume)on 09-20-2021 Hemoglobin (Bld) [Mass/Vol] 13.6 g/dL 13.0-16.5 [facility] Work Phone: Blood lymphocytes/100 leukoc yteson 09-20-2021 Lymphocytes/100 WBC (Bld) 26.8 % 19-41 [facility] Work Phone: Blood monocytes/100 leukocyt eson 09-20-2021 Monocytes/100 WBC (Bld) 10.8 % 0-10 [facility] Work Phone: Blood platelet mean volumeon 09-20-2021 Platelet mean volume (Bld) [Entitic vol] 10.7 fL 6.2-12.0 [facility] Work Phone: Determination of erythrocyte mean corpuscular volume (MCV)on 09-20-2021 MCV (RBC) [Entitic vol] 93.1 fL 80-94 [facility] Work Phone: Hematocrit Auto (Bld) [Volum e fraction]on 09-20-2021 Hematocrit (Bld) [Volume fraction] 40.2 % 40-54 [facility] Work Phone: Laboratory - Hematology and Cell countson 09-20-2021 Erythrocyte distribution width (RBC) [Entitic vol] 43.0 fL 35.1-43.9 [facility] Work Phone: Erythrocyte distribution width (RBC) [Ratio] 12.6 % 11.6-14.6 [facility] Work Phone: Immature granulocytes/100 WBC (Bld) 0.400 % 0.0-0.9 [facility] Work Phone: Comment on above: IG% - Immature Granu locytes (promyelocytes, myelocytes and metamyelocytes) > 1% indicates that a LEFT SHIFT is Present. MCH (RBC) [Entitic mass] 31.5 pg 27.0-32.0 [facility] Work Phone: Nucleated RBC/100 WBC (Bld) [Ratio] 0 % 0-5 [facility] Work Phone: MCHC Auto (RBC) [Mass/Vol]on 09-20-2021 MCHC (RBC) [Mass/Vol] 33.8 g/dL 32-36 [facility]: Platelets bldon 09-20-2021 Platelets (Bld) [#/Vol] 170 10*3/uL 150-450 [facility] Work Phone: Absolute lymphocyte counton 09-13-2021 Lymphocytes Auto (Unsp spec) [#/Vol] 1.85 10*3/uL 0.83-4.51 [facility] Work Phone: Basophil percentageon 2021 Basophils/100 WBC (Bld) 0.6 % 0-1 [facility] Work Phone: Eosinophils/100 WBC (Bld) 0.3 % 0-5 [facility] Work Phone: Neutrophils (Bld) [#/Vol] 4.3 10*3/uL 2.0-7.7 [facility] Work Phone: Neutrophils/100 WBC (Bld) 63.1 % 47-70 [facility] Work Phone: WBC (Bld) [#/Vol] 6.7 10*3/uL 4.4-11.0 [facility] Work Phone: Blood erythrocytes count (nu mber/volume)on 09-13-2021 RBC (Bld) [#/Vol] 4.63 10*6/uL 4.6-6.2 [facility] Work Phone: Blood hemoglobin measurement (mass/volume)on 09-13-2021 Hemoglobin (Bld) [Mass/Vol] 14.2 g/dL 13.0-16.5 [facility] Work Phone: Blood lymphocytes/100 leukoc yteson 09-13-2021 Lymphocytes/100 WBC (Bld) 27.5 % 19-41 [facility] Work Phone: Blood monocytes/100 leukocyt eson 09-13-2021 Monocytes/100 WBC (Bld) 8.2 % 0-10 [facility] Work Phone: Blood platelet mean volumeon 09-13-2021 Platelet mean volume (Bld) [Entitic vol] 11.0 fL 6.2-12.0 [facility] Work Phone: Determination of erythrocyte mean corpuscular volume (MCV)on 09-13-2021 MCV (RBC) [Entitic vol] 93.5 fL 80-94 [facility] Work Phone: Hematocrit Auto (Bld) [Volum e fraction]on 09-13-2021 Hematocrit (Bld) [Volume fraction] 43.3 % 40-54 [facility] Work Phone: Laboratory - Hematology and Cell countson 09-13-2021 Erythrocyte distribution width (RBC) [Entitic vol] 43.0 fL 35.1-43.9 [facility] Work Phone: Erythrocyte distribution width (RBC) [Ratio] 12.6 % 11.6-14.6 [facility] Work Phone: Immature granulocytes/100 WBC (Bld) 0.300 % 0.0-0.9 [facility] Work Phone: Comment on above: IG% - Immature Granu locytes (promyelocytes, myelocytes and metamyelocytes) > 1% indicates that a LEFT SHIFT is Present. MCH (RBC) [Entitic mass] 30.7 pg 27.0-32.0 [facility] Work Phone: Nucleated RBC/100 WBC (Bld) [Ratio] 0 % 0-5 [facility] Work Phone: MCHC Auto (RBC) [Mass/Vol]on 09-13-2021 MCHC (RBC) [Mass/Vol] 32.8 g/dL 32-36 [facility] Work Phone: Platelets bldon 09-13-2021 Platelets (Bld) [#/Vol] 188 10*3/uL 150-450 [facility] Work Phone: [phone] Absolute lymphocyte counton 09-06-2021 Lymphocytes Auto (Unsp spec) [#/Vol] 1.86 10*3/uL 0.83-4.51 [facility] Work Phone: Basophil percentageon 2021 Basophils/100 WBC (Bld) 0.7 % 0-1 [facility] Work Phone: Eosinophils/100 WBC (Bld) 0.3 % 0-5 [facility] Work Phone: Neutrophils (Bld) [#/Vol] 4.4 10*3/uL 2.0-7.7 [facility] Work Phone: Neutrophils/100 WBC (Bld) 62.6 % 47-70 [facility] Work Phone: WBC (Bld) [#/Vol] 7.0 10*3/uL 4.4-11.0 [facility] Work Phone: Blood erythrocytes count (nu mber/volume)on 09-06-2021 RBC (Bld) [#/Vol] 4.51 10*6/uL 4.6-6.2 [facility] Work Phone: Blood hemoglobin measurement (mass/volume)on 09-06-2021 Hemoglobin (Bld) [Mass/Vol] 13.8 g/dL 13.0-16.5 [facility] Work Phone: Blood lymphocytes/100 leukoc yteson 09-06-2021 Lymphocytes/100 WBC (Bld) 26.5 % 19-41 [facility] Work Phone: Blood monocytes/100 leukocyt eson 09-06-2021 Monocytes/100 WBC (Bld) 9.5 % 0-10 [facility] Work Phone: Blood platelet mean volumeon 09-06-2021 Platelet mean volume (Bld) [Entitic vol] 10.7 fL 6.2-12.0 [facility] Work Phone: Determination of erythrocyte mean corpuscular volume (MCV)on 09-06-2021 MCV (RBC) [Entitic vol] 92.9 fL 80-94 [facility] Work Phone: Hematocrit Auto (Bld) [Volum e fraction]on 09-06-2021 Hematocrit (Bld) [Volume fraction] 41.9 % 40-54 [facility] Work Phone: Laboratory - Hematology and Cell countson 09-06-2021 Erythrocyte distribution width (RBC) [Entitic vol] 43.0 fL 35.1-43.9 [facility] Work Phone: Erythrocyte distribution width (RBC) [Ratio] 12.7 % 11.6-14.6 [facility] Work Phone: Immature granulocytes/100 WBC (Bld) 0.400 % 0.0-0.9 [facility] Work Phone: Comment on above: IG% - Immature Granu locytes (promyelocytes, myelocytes and metamyelocytes) > 1% indicates that a LEFT SHIFT is Present. MCH (RBC) [Entitic mass] 30.6 pg 27.0-32.0 [facility] Work Phone: Nucleated RBC/100 WBC (Bld) [Ratio] 0 % 0-5 [facility] Work Phone: MCHC Auto (RBC) [Mass/Vol]on 09-06-2021 MCHC (RBC) [Mass/Vol] 32.9 g/dL 32-36 [facility] Work Phone: Platelets bldon 09-06-2021 Platelets (Bld) [#/Vol] 189 10*3/uL 150-450 [facility] Work Phone: Absolute lymphocyte counton 08-30-2021 Lymphocytes Auto (Unsp spec) [#/Vol] 1.44 10*3/uL 0.83-4.51 [facility] Work Phone: Basophil percentageon 2021 Basophils/100 WBC (Bld) 0.3 % 0-1 [facility] Work Phone: Eosinophils/100 WBC (Bld) 0.2 % 0-5 [facility] Work Phone: Neutrophils (Bld) [#/Vol] 9.6 10*3/uL 2.0-7.7 [facility] Work Phone: Neutrophils/100 WBC (Bld) 80.4 % 47-70 [facility] Work Phone: WBC (Bld) [#/Vol] 12.0 10*3/uL 4.4-11.0 [facility] Work Phone: Blood erythrocytes count (nu mber/volume)on 08-30-2021 RBC (Bld) [#/Vol] 4.52 10*6/uL 4.6-6.2 [facility] Work Phone: Blood hemoglobin measurement (mass/volume)on 08-30-2021 Hemoglobin (Bld) [Mass/Vol] 13.9 g/dL 13.0-16.5 [facility] Work Phone: Blood lymphocytes/100 leukoc yteson 08-30-2021 Lymphocytes/100 WBC (Bld) 12.0 % 19-41 [facility] Work Phone: Blood monocytes/100 leukocyt eson 08-30-2021 Monocytes/100 WBC (Bld) 6.7 % 0-10 [facility] Work Phone: Blood platelet mean volumeon 08-30-2021 Platelet mean volume (Bld) [Entitic vol] 11.3 fL 6.2-12.0 [facility] Work Phone: Determination of erythrocyte mean corpuscular volume (MCV)on 08-30-2021 MCV (RBC) [Entitic vol] 92.7 fL 80-94 [facility] Work Phone: Hematocrit Auto (Bld) [Volum e fraction]on 08-30-2021 Hematocrit (Bld) [Volume fraction] 41.9 % 40-54 [facility] Work Phone: Laboratory - Hematology and Cell countson 08-30-2021 Erythrocyte distribution width (RBC) [Entitic vol] 42.6 fL 35.1-43.9 [facility] Work Phone: Erythrocyte distribution width (RBC) [Ratio] 12.6 % 11.6-14.6 [facility] Work Phone: Immature granulocytes/100 WBC (Bld) 0.400 % 0.0-0.9 [facility] Work Phone: Comment on above: IG% - Immature Granu locytes (promyelocytes, myelocytes and metamyelocytes) > 1% indicates that a LEFT SHIFT is Present. MCH (RBC) [Entitic mass] 30.8 pg 27.0-32.0 [facility] Work Phone: Nucleated RBC/100 WBC (Bld) [Ratio] 0 % 0-5 [facility] Work Phone: MCHC Auto (RBC) [Mass/Vol]on 08-30-2021 MCHC (RBC) [Mass/Vol] 33.2 g/dL 32-36 [facility] Work [facility]: Platelets bldon 08-30-2021 Platelets (Bld) [#/Vol] 200 10*3/uL 150-450 [facility] Work Phone: Absolute lymphocyte counton 08-23-2021 Lymphocytes Auto (Unsp spec) [#/Vol] 1.91 10*3/uL 0.83-4.51 [facility] Work Phone: Basophil percentageon 2021 Basophils/100 WBC (Bld) 0.4 % 0-1 [facility] Work Phone: Eosinophils/100 WBC (Bld) 0.3 % 0-5 [facility] Work Phone: Neutrophils (Bld) [#/Vol] 4.2 10*3/uL 2.0-7.7 [facility] Work Phone: Neutrophils/100 WBC (Bld) 62.3 % 47-70 [facility] Work Phone: WBC (Bld) [#/Vol] 6.8 10*3/uL 4.4-11.0 [facility] Work Phone: Blood erythrocytes count (nu mber/volume)on 08-23-2021 RBC (Bld) [#/Vol] 4.46 10*6/uL 4.6-6.2 [facility] Work Phone: Blood hemoglobin measurement (mass/volume)on 08-23-2021 Hemoglobin (Bld) [Mass/Vol] 13.7 g/dL 13.0-16.5 [facility] Work Phone: Blood lymphocytes/100 leukoc yteson 08-23-2021 Lymphocytes/100 WBC (Bld) 28.3 % 19-41 [facility] Work Phone: Blood monocytes/100 leukocyt eson 08-23-2021 Monocytes/100 WBC (Bld) 8.1 % 0-10 [facility] Work Phone: Blood platelet mean volumeon 08-23-2021 Platelet mean volume (Bld) [Entitic vol] 10.6 fL 6.2-12.0 [facility] Work Phone: Determination of erythrocyte mean corpuscular volume (MCV)on 08-23-2021 MCV (RBC) [Entitic vol] 93.0 fL 80-94 [facility] Work Phone: Hematocrit Auto (Bld) [Volum e fraction]on 08-23-2021 Hematocrit (Bld) [Volume fraction] 41.5 % 40-54 [facility] Work Phone: Laboratory - Hematology and Cell countson 08-23-2021 Erythrocyte distribution width (RBC) [Entitic vol] 42.4 fL 35.1-43.9 [facility] Work Phone: Erythrocyte distribution width (RBC) [Ratio] 12.5 % 11.6-14.6 [facility] Work Phone: Immature granulocytes/100 WBC (Bld) 0.600 % 0.0-0.9 [facility] Work Phone: Comment on above: IG% - Immature Granu locytes (promyelocytes, myelocytes and metamyelocytes) > 1% indicates that a LEFT SHIFT is Present. MCH (RBC) [Entitic mass] 30.7 pg 27.0-32.0 [facility] Work Phone: Nucleated RBC/100 WBC (Bld) [Ratio] 0 % 0-5 [facility] Work Phone: MCHC Auto (RBC) [Mass/Vol]on 08-23-2021 MCHC (RBC) [Mass/Vol] 33.0 g/dL 32-36 [facility] Work Phone: Platelets bldon 08-23-2021 Platelets (Bld) [#/Vol] 198 10*3/uL 150-450 [facility] Work Phone: Basophil percentageon 2021 Basophil percentage 0 SEEN /hpf 0-5 [facility] [place] Work Phone: Bilirubin Test strip Ql (U)o n 08-18-2021 Bilirubin Ql (U) Negative Negative [facility] Work Phone: Culture, urineon 08-18-2021 Bacteria identified Cx Nom (U) Culture exhibits no growth. [facility] Work Phone: Ketones Test strip Ql (U)on 08-18-2021 Ketones Ql (U) Negative Negative [facility] Work Phone: Mucus LM Ql (Urine sed)on Mucus Ql (Urine sed) 0 SEEN /hpf [facility] Work Phone: Nitrite Test strip Ql (U)on 08-18-2021 Nitrite Ql (U) Negative Negative [facility] Work Phone: Protein Test strip Ql (U)on 08-18-2021 Protein Ql (U) Negative Negative [facility] Work Phone: Squamous epithelial cells de tection in urine sediment by light microscopyon 08-18-2021 Epithelial cells.squamous LM Ql (Urine sed) 0 SEEN /hpf 0-5 [facility] Work Phone: Urine blood detectionon 07-31 RBC Ql (U) Negative Negative [facility] Work Phone: RBC Ql (U) 0 SEEN /hpf 0-5 [facility] Work Phone: Urine clarityon 08-18-2021 Clarity (U) Clear Clear [facility] Work Phone: Urine color determinationon 08-18-2021 Color (U) Yellow Yellow [facility] Work Phone: Urine glucose detectionon Glucose Ql (U) Normal mg/dl Normal [facility] Work Phone: Urine leukocyte esterase det ection by dipstickon 08-18-2021 Leukocyte esterase Test strip Ql (U) Negative Negative [facility] Work Phone: Urine pHon 08-18-2021 pH (U) 7.0 [pH] 5.0 - 8.0 [facility] Work Phone: Urine sediment bacteria coun t by microscopy (number/high power field)on 08-18-2021 Bacteria LM.HPF (Urine sed) [#/Area] 0 /[HPF] None Seen [facility] Work Phone: Urine specific gravity measu rementon 08-18-2021 Specific gravity (U) [Rel density] 1.010 1.002-1.030 [facility] Work Phone: Urobilinogen Auto test strip Ql (U)on 08-18-2021 Urobilinogen Ql (U) 4 mg/dl Normal [facility] Work Phone: Absolute lymphocyte counton 08-16-2021 Lymphocytes Auto (Unsp spec) [#/Vol] 1.71 10*3/uL 0.83-4.51 [facility] Work Phone: Basophil percentageon 2021 Basophils/100 WBC (Bld) 0.3 % 0-1 [facility] Work Phone: Eosinophils/100 WBC (Bld) 0.2 % 0-5 [facility] Work Phone: Neutrophils (Bld) [#/Vol] 8.6 10*3/uL 2.0-7.7 [facility] Work Phone: Neutrophils/100 WBC (Bld) 76.8 % 47-70 [facility] Work Phone: [phone] WBC (Bld) [#/Vol] 11.2 10*3/uL 4.4-11.0 [facility] Work Phone: Blood erythrocytes count (nu mber/volume)on 08-16-2021 RBC (Bld) [#/Vol] 4.42 10*6/uL 4.6-6.2 [facility] Work Phone: Blood hemoglobin measurement (mass/volume)on 08-16-2021 Hemoglobin (Bld) [Mass/Vol] 13.4 g/dL 13.0-16.5 [facility] Work Phone: Blood lymphocytes/100 leukoc yteson 08-16-2021 Lymphocytes/100 WBC (Bld) 15.2 % 19-41 [facility] Work Phone: Blood monocytes/100 leukocyt eson 08-16-2021 Monocytes/100 WBC (Bld) 7.1 % 0-10 [facility] Work Phone: Blood platelet mean volumeon 08-16-2021 Platelet mean volume (Bld) [Entitic vol] 11.0 fL 6.2-12.0 [facility] Work Phone: Determination of erythrocyte mean corpuscular volume (MCV)on 08-16-2021 MCV (RBC) [Entitic vol] 91.9 fL 80-94 [facility] Work Phone: Hematocrit Auto (Bld) [Volum e fraction]on 08-16-2021 Hematocrit (Bld) [Volume fraction] 40.6 % 40-54 [facility] Work Phone: Laboratory - Hematology and Cell countson 08-16-2021 Erythrocyte distribution width (RBC) [Entitic vol] 43.0 fL 35.1-43.9 [facility] Work Phone: Erythrocyte distribution width (RBC) [Ratio] 12.7 % 11.6-14.6 [facility] Work Phone: Immature granulocytes/100 WBC (Bld) 0.400 % 0.0-0.9 [facility] Work Phone: Comment on above: IG% - Immature Granu locytes (promyelocytes, myelocytes and metamyelocytes) > 1% indicates that a LEFT SHIFT is Present. MCH (RBC) [Entitic mass] 30.3 pg 27.0-32.0 [facility] Work Phone: Nucleated RBC/100 WBC (Bld) [Ratio] 0 % 0-5 [facility] Work Phone: MCHC Auto (RBC) [Mass/Vol]on 08-16-2021 MCHC (RBC) [Mass/Vol] 33.0 g/dL 32-36 [facility] [place] Work Phone: [phone] Platelets bldon 08-16-2021 Platelets (Bld) [#/Vol] 187 10*3/uL 150-450 [facility] Work Phone: [phone] Absolute lymphocyte counton 08-09-2021 Lymphocytes Auto (Unsp spec) [#/Vol] 1.78 10*3/uL 0.83-4.51 [facility] Work Phone: [phone] Basophil percentageon 2021 Basophils/100 WBC (Bld) 0.5 % 0-1 [facility] Work Phone: Eosinophils/100 WBC (Bld) 0.1 % 0-5 [facility] Work Phone: Neutrophils (Bld) [#/Vol] 6.0 10*3/uL 2.0-7.7 [facility] Work Phone: Neutrophils/100 WBC (Bld) 71.3 % 47-70 [facility] Work Phone: [phone] WBC (Bld) [#/Vol] 8.4 10*3/uL 4.4-11.0 [facility]: [phone] Blood erythrocytes count (nu mber/volume)on 08-09-2021 RBC (Bld) [#/Vol] 4.37 10*6/uL 4.6-6.2 [facility] Work Phone: [phone] Blood hemoglobin measurement (mass/volume)on 08-09-2021 Hemoglobin (Bld) [Mass/Vol] 13.5 g/dL 13.0-16.5 [facility] Work Phone: [phone] Blood lymphocytes/100 leukoc yteson 08-09-2021 Lymphocytes/100 WBC (Bld) 21.2 % 19-41 [facility] Work Phone: Blood monocytes/100 leukocyt eson 08-09-2021 Monocytes/100 WBC (Bld) 6.5 % 0-10 [facility] Work Phone: Blood platelet mean volumeon 08-09-2021 Platelet mean volume (Bld) [Entitic vol] 11.1 fL 6.2-12.0 [facility] Work Phone: Determination of erythrocyte mean corpuscular volume (MCV)on 08-09-2021 MCV (RBC) [Entitic vol] 91.3 fL 80-94 [facility] Work Phone: Hematocrit Auto (Bld) [Volum e fraction]on 08-09-2021 Hematocrit (Bld) [Volume fraction] 39.9 % 40-54 [facility] Work Phone: Laboratory - Hematology and Cell countson 08-09-2021 Erythrocyte distribution width (RBC) [Entitic vol] 41.4 fL 35.1-43.9 [facility] Work Phone: Erythrocyte distribution width (RBC) [Ratio] 12.5 % 11.6-14.6 [facility] Work Phone: Immature granulocytes/100 WBC (Bld) 0.400 % 0.0-0.9 [facility] Work Phone: Comment on above: IG% - Immature Granu locytes (promyelocytes, myelocytes and metamyelocytes) > 1% indicates that a LEFT SHIFT is Present. MCH (RBC) [Entitic mass] 30.9 pg 27.0-32.0 [facility] Work Phone: Nucleated RBC/100 WBC (Bld) [Ratio] 0 % 0-5 [facility] Work Phone: MCHC Auto (RBC) [Mass/Vol]on 08-09-2021 MCHC (RBC) [Mass/Vol] 33.8 g/dL 32-36 [facility]: Platelets bldon 08-09-2021 Platelets (Bld) [#/Vol] 177 10*3/uL 150-450 [facility] Work Phone: Absolute lymphocyte counton 08-02-2021 Lymphocytes Auto (Unsp spec) [#/Vol] 1.69 10*3/uL 0.83-4.51 [facility] Work Phone: [phone] Basophil percentageon 2021 Basophils/100 WBC (Bld) 0.3 % 0-1 [facility] Work Phone: [phone] Eosinophils/100 WBC (Bld) 0.3 % 0-5 [facility] Work Phone: [phone] Neutrophils (Bld) [#/Vol] 3.8 10*3/uL 2.0-7.7 [facility] Work Phone: [phone] Neutrophils/100 WBC (Bld) 61.9 % 47-70 [facility] Work Phone: WBC (Bld) [#/Vol] 6.1 10*3/uL 4.4-11.0 [facility] Work Phone: Blood erythrocytes count (nu mber/volume)on 08-02-2021 RBC (Bld) [#/Vol] 4.54 10*6/uL 4.6-6.2 [facility] Work Phone: Blood hemoglobin measurement (mass/volume)on 08-02-2021 Hemoglobin (Bld) [Mass/Vol] 13.8 g/dL 13.0-16.5 [facility] Work Phone: [phone] Blood lymphocytes/100 leukoc yteson 08-02-2021 Lymphocytes/100 WBC (Bld) 27.7 % 19-41 [facility] Work Phone: [phone] Blood monocytes/100 leukocyt eson 08-02-2021 Monocytes/100 WBC (Bld) 9.5 % 0-10 [facility] Work Phone: Blood platelet mean volumeon 08-02-2021 Platelet mean volume (Bld) [Entitic vol] 11.2 fL 6.2-12.0 [facility] Work Phone: Determination of erythrocyte mean corpuscular volume (MCV)on 08-02-2021 MCV (RBC) [Entitic vol] 90.1 fL 80-94 [facility] Work Phone: Hematocrit Auto (Bld) [Volum e fraction]on 08-02-2021 Hematocrit (Bld) [Volume fraction] 40.9 % 40-54 [facility] Work Phone: Laboratory - Hematology and Cell countson 08-02-2021 Erythrocyte distribution width (RBC) [Entitic vol] 40.3 fL 35.1-43.9 [facility] Work Phone: Erythrocyte distribution width (RBC) [Ratio] 12.4 % 11.6-14.6 [facility] Work Phone: Immature granulocytes/100 WBC (Bld) 0.300 % 0.0-0.9 [facility] Work Phone: Comment on above: IG% - Immature Granu locytes (promyelocytes, myelocytes and metamyelocytes) > 1% indicates that a LEFT SHIFT is Present. MCH (RBC) [Entitic mass] 30.4 pg 27.0-32.0 [facility] Work Phone: Nucleated RBC/100 WBC (Bld) [Ratio] 0 % 0-5 [facility] Work Phone: MCHC Auto (RBC) [Mass/Vol]on 08-02-2021 MCHC (RBC) [Mass/Vol] 33.7 g/dL 32-36 [facility] Work [facility]: Platelets bldon 08-02-2021 Platelets (Bld) [#/Vol] 192 10*3/uL 150-450 [facility] Work Phone: Absolute lymphocyte counton 07-26-2021 Lymphocytes Auto (Unsp spec) [#/Vol] 1.83 10*3/uL 0.83-4.51 [facility] Work Phone: [phone] Basophil percentageon 2021 Basophils/100 WBC (Bld) 0.5 % 0-1 [facility] Work Phone: Eosinophils/100 WBC (Bld) 0.3 % 0-5 [facility] Work Phone: [phone] Neutrophils (Bld) [#/Vol] 3.3 10*3/uL 2.0-7.7 [facility] Work Phone: Neutrophils/100 WBC (Bld) 58.1 % 47-70 [facility] Work Phone: WBC (Bld) [#/Vol] 5.7 10*3/uL 4.4-11.0 [facility] Work Phone: Blood erythrocytes count (nu mber/volume)on 07-26-2021 RBC (Bld) [#/Vol] 4.21 10*6/uL 4.6-6.2 [facility] Work Phone: Blood hemoglobin measurement (mass/volume)on 07-26-2021 Hemoglobin (Bld) [Mass/Vol] 12.9 g/dL 13.0-16.5 [facility] Work Phone: Blood lymphocytes/100 leukoc yteson 07-26-2021 Lymphocytes/100 WBC (Bld) 31.9 % 19-41 [facility] Work Phone: Blood monocytes/100 leukocyt eson 07-26-2021 Monocytes/100 WBC (Bld) 8.9 % 0-10 [facility] Work Phone: Blood platelet mean volumeon 07-26-2021 Platelet mean volume (Bld) [Entitic vol] 11.5 fL 6.2-12.0 [facility] Work Phone: Determination of erythrocyte mean corpuscular volume (MCV)on 07-26-2021 MCV (RBC) [Entitic vol] 90.7 fL 80-94 [facility] Work Phone: Hematocrit Auto (Bld) [Volum e fraction]on 07-26-2021 Hematocrit (Bld) [Volume fraction] 38.2 % 40-54 [facility] Work Phone: Laboratory - Hematology and Cell countson 07-26-2021 Erythrocyte distribution width (RBC) [Entitic vol] 41.2 fL 35.1-43.9 [facility] Work Phone: Erythrocyte distribution width (RBC) [Ratio] 12.5 % 11.6-14.6 [facility] Work Phone: Immature granulocytes/100 WBC (Bld) 0.300 % 0.0-0.9 [facility] Work Phone: Comment on above: IG% - Immature Granu locytes (promyelocytes, myelocytes and metamyelocytes) > 1% indicates that a LEFT SHIFT is Present. MCH (RBC) [Entitic mass] 30.6 pg 27.0-32.0 [facility] Work Phone: Nucleated RBC/100 WBC (Bld) [Ratio] 0 % 0-5 [facility] Work Phone: MCHC Auto (RBC) [Mass/Vol]on 07-26-2021 MCHC (RBC) [Mass/Vol] 33.8 g/dL 32-36 [facility] [place] Work Phone: Platelets bldon 07-26-2021 Platelets (Bld) [#/Vol] 180 10*3/uL 150-450 [facility] Work Phone: Absolute lymphocyte counton 07-19-2021 Lymphocytes Auto (Unsp spec) [#/Vol] 2.04 10*3/uL 0.83-4.51 [facility] Work Phone: Basophil percentageon 2021 Basophils/100 WBC (Bld) 0.3 % 0-1 [facility] Work Phone: Eosinophils/100 WBC (Bld) 0.4 % 0-5 [facility] Work Phone: Neutrophils (Bld) [#/Vol] 4.0 10*3/uL 2.0-7.7 [facility] Work Phone: Neutrophils/100 WBC (Bld) 59.2 % 47-70 [facility] Work Phone: WBC (Bld) [#/Vol] 6.7 10*3/uL 4.4-11.0 [facility] Work [facility]: Blood erythrocytes count (nu mber/volume)on 07-19-2021 RBC (Bld) [#/Vol] 4.53 10*6/uL 4.6-6.2 [facility] Work Phone: Blood hemoglobin measurement (mass/volume)on 07-19-2021 Hemoglobin (Bld) [Mass/Vol] 14.1 g/dL 13.0-16.5 [facility] Work Phone: Blood lymphocytes/100 leukoc yteson 07-19-2021 Lymphocytes/100 WBC (Bld) 30.5 % 19-41 [facility] Work Phone: Blood monocytes/100 leukocyt eson 07-19-2021 Monocytes/100 WBC (Bld) 9.0 % 0-10 [facility] Work Phone: Blood platelet mean volumeon 07-19-2021 Platelet mean volume (Bld) [Entitic vol] 11.4 fL 6.2-12.0 [facility] Work Phone: Determination of erythrocyte mean corpuscular volume (MCV)on 07-19-2021 MCV (RBC) [Entitic vol] 90.5 fL 80-94 [facility] Work Phone: Hematocrit Auto (Bld) [Volum e fraction]on 07-19-2021 Hematocrit (Bld) [Volume fraction] 41.0 % 40-54 [facility] Work Phone: Laboratory - Hematology and Cell countson 07-19-2021 Erythrocyte distribution width (RBC) [Entitic vol] 41.1 fL 35.1-43.9 [facility] Work Phone: Erythrocyte distribution width (RBC) [Ratio] 12.5 % 11.6-14.6 [facility] Work Phone: Immature granulocytes/100 WBC (Bld) 0.600 % 0.0-0.9 [facility] Work Phone: Comment on above: IG% - Immature Granu locytes (promyelocytes, myelocytes and metamyelocytes) > 1% indicates that a LEFT SHIFT is Present. MCH (RBC) [Entitic mass] 31.1 pg 27.0-32.0 [facility] Work Phone: Nucleated RBC/100 WBC (Bld) [Ratio] 0 % 0-5 [facility] Work Phone: [phone] MCHC Auto (RBC) [Mass/Vol]on 07-19-2021 MCHC (RBC) [Mass/Vol] 34.4 g/dL 32-36 [facility] Work [facility]: Platelets bldon 07-19-2021 Platelets (Bld) [#/Vol] 193 10*3/uL 150-450 [facility] Work Phone: Absolute lymphocyte counton 07-12-2021 Lymphocytes Auto (Unsp spec) [#/Vol] 1.42 10*3/uL 0.83-4.51 [facility] Work Phone: Basophil percentageon 2021 Basophils/100 WBC (Bld) 0.6 % 0-1 [facility] Work Phone: Eosinophils/100 WBC (Bld) 0.3 % 0-5 [facility] Work Phone: Neutrophils (Bld) [#/Vol] 4.7 10*3/uL 2.0-7.7 [facility] Work Phone: Neutrophils/100 WBC (Bld) 67.3 % 47-70 [facility] Work Phone: WBC (Bld) [#/Vol] 7.0 10*3/uL 4.4-11.0 [facility] Work Phone: Blood erythrocytes count (nu mber/volume)on 07-12-2021 RBC (Bld) [#/Vol] 4.61 10*6/uL 4.6-6.2 [facility] Work Phone: Blood hemoglobin measurement (mass/volume)on 07-12-2021 Hemoglobin (Bld) [Mass/Vol] 14.4 g/dL 13.0-16.5 [facility] Work Phone: Blood lymphocytes/100 leukoc yteson 07-12-2021 Lymphocytes/100 WBC (Bld) 20.4 % 19-41 [facility] Work Phone: Blood monocytes/100 leukocyt eson 07-12-2021 Monocytes/100 WBC (Bld) 11.1 % 0-10 [facility] Work Phone: Blood platelet mean volumeon 07-12-2021 Platelet mean volume (Bld) [Entitic vol] 11.2 fL 6.2-12.0 [facility] Work Phone: Determination of erythrocyte mean corpuscular volume (MCV)on 07-12-2021 MCV (RBC) [Entitic vol] 91.1 fL 80-94 [facility] Work Phone: Hematocrit Auto (Bld) [Volum e fraction]on 07-12-2021 Hematocrit (Bld) [Volume fraction] 42.0 % 40-54 [facility] Work Phone: Laboratory - Hematology and Cell countson 07-12-2021 Erythrocyte distribution width (RBC) [Entitic vol] 41.4 fL 35.1-43.9 [facility] Work Phone: Erythrocyte distribution width (RBC) [Ratio] 12.6 % 11.6-14.6 [facility] Work Phone: Immature granulocytes/100 WBC (Bld) 0.300 % 0.0-0.9 [facility] Work Phone: Comment on above: IG% - Immature Granu locytes (promyelocytes, myelocytes and metamyelocytes) > 1% indicates that a LEFT SHIFT is Present. MCH (RBC) [Entitic mass] 31.2 pg 27.0-32.0 [facility] Work Phone: Nucleated RBC/100 WBC (Bld) [Ratio] 0 % 0-5 [facility] Work Phone: MCHC Auto (RBC) [Mass/Vol]on 07-12-2021 MCHC (RBC) [Mass/Vol] 34.3 g/dL 32-36 [facility] [place] Work Phone: Platelets bldon 07-12-2021 Platelets (Bld) [#/Vol] 184 10*3/uL 150-450 [facility] Work Phone: Absolute lymphocyte counton 07-05-2021 Lymphocytes Auto (Unsp spec) [#/Vol] 1.55 10*3/uL 0.83-4.51 [facility] Work Phone: Basophil percentageon 2021 Basophils/100 WBC (Bld) 0.4 % 0-1 [facility] Work Phone: Cholesterol [Mass/Vol] 148 mg/dL <200 [facility] Work Phone: Comment on above: <200 mg/dL Desirable 200-240 mg/dL Borderline >240 mg/dL High Risk Eosinophils/100 WBC (Bld) 0.3 % 0-5 [facility] Work Phone: Neutrophils (Bld) [#/Vol] 5.5 10*3/uL 2.0-7.7 [facility] Work Phone: Neutrophils/100 WBC (Bld) 70.9 % 47-70 [facility] Work Phone: Triglyceride [Mass/Vol] 201 mg/dL <199 [facility] Work Phone: Comment on above: The drugs N-Acetylcy steine and Metamizole may falsely depress this assay.Serum Triglycerides Reference Interval Normal <150 mg/dL Borderline high 150 - 199 mg/dL High 200 - 499 mg/dL Very High > or = 500 mg/dL WBC (Bld) [#/Vol] 7.8 10*3/uL 4.4-11.0 [facility] Work Phone: Blood erythrocytes count (nu mber/volume)on 07-05-2021 RBC (Bld) [#/Vol] 4.46 10*6/uL 4.6-6.2 [facility] Work Phone: Blood hemoglobin measurement (mass/volume)on 07-05-2021 Hemoglobin (Bld) [Mass/Vol] 13.4 g/dL 13.0-16.5 [facility] Work Phone: Blood lymphocytes/100 leukoc yteson 07-05-2021 Lymphocytes/100 WBC (Bld) 20.0 % 19-41 [facility] Work Phone: Blood monocytes/100 leukocyt eson 07-05-2021 Monocytes/100 WBC (Bld) 8.1 % 0-10 [facility] Work Phone: Blood platelet mean volumeon 07-05-2021 Platelet mean volume (Bld) [Entitic vol] 11.7 fL 6.2-12.0 [facility] Work Phone: Determination of erythrocyte mean corpuscular volume (MCV)on 07-05-2021 MCV (RBC) [Entitic vol] 91.0 fL 80-94 [facility] Work Phone: Hematocrit Auto (Bld) [Volum e fraction]on 07-05-2021 Hematocrit (Bld) [Volume fraction] 40.6 % 40-54 [facility] Work Phone: Laboratory - Hematology and Cell countson 07-05-2021 Erythrocyte distribution width (RBC) [Entitic vol] 41.9 fL 35.1-43.9 [facility] Work Phone: Erythrocyte distribution width (RBC) [Ratio] 12.8 % 11.6-14.6 [facility] Work Phone: Immature granulocytes/100 WBC (Bld) 0.300 % 0.0-0.9 [facility] Work Phone: Comment on above: IG% - Immature Granu locytes (promyelocytes, myelocytes and metamyelocytes) > 1% indicates that a LEFT SHIFT is Present. MCH (RBC) [Entitic mass] 30.0 pg 27.0-32.0 [facility] Work Phone: Nucleated RBC/100 WBC (Bld) [Ratio] 0 % 0-5 [facility] Work Phone: MCHC Auto (RBC) [Mass/Vol]on 07-05-2021 MCHC (RBC) [Mass/Vol] 33.0 g/dL 32-36 [facility] [place] Work Phone: Platelets bldon 07-05-2021 Platelets (Bld) [#/Vol] 186 10*3/uL 150-450 [facility] Work Phone: Serum or plasma cholesterol in HDL measurement (mass/volume)on 07-05-2021 Cholesterol in HDL [Mass/Vol] 30 mg/dL >40 [facility] Work Phone: Comment on above: The drugs N-Acetylcy steine and Metamizole may falsely depress this assay. Reference Range HDL <40 mg/dL Low HDL Cholesterol HDL >or= 60 mg/dL High HDL Cholesterol Serum or plasma cholesterol in VLDL measurement (mass/volume)on 07-05-2021 Cholesterol in VLDL [Mass/Vol] 40 mg/dL 5-40 [facility] Work Phone: Serum or plasma low density lipoprotein (LDL) cholesterol measurement (mass/volume)on 07-05-2021 Cholesterol in LDL [Mass/Vol] 78 mg/dL 0-130 [facility] Work Phone: Absolute lymphocyte counton 06-28-2021 Lymphocytes Auto (Unsp spec) [#/Vol] 2.01 10*3/uL 0.83-4.51 [facility] Work Phone: Basophil percentageon 2021 Basophils/100 WBC (Bld) 0.5 % 0-1 [facility] Work Phone: Eosinophils/100 WBC (Bld) 0.3 % 0-5 [facility] Work Phone: Neutrophils (Bld) [#/Vol] 3.3 10*3/uL 2.0-7.7 [facility] Work Phone: Neutrophils/100 WBC (Bld) 55.5 % 47-70 [facility] Work Phone: WBC (Bld) [#/Vol] 6.0 10*3/uL 4.4-11.0 [facility] Work Phone: Blood erythrocytes count (nu mber/volume)on 06-28-2021 RBC (Bld) [#/Vol] 4.32 10*6/uL 4.6-6.2 [facility] Work Phone: Blood hemoglobin measurement (mass/volume)on 06-28-2021 Hemoglobin (Bld) [Mass/Vol] 13.5 g/dL 13.0-16.5 [facility] Work Phone: Blood lymphocytes/100 leukoc yteson 06-28-2021 Lymphocytes/100 WBC (Bld) 33.5 % 19-41 [facility] Work Phone: Blood monocytes/100 leukocyt eson 06-28-2021 Monocytes/100 WBC (Bld) 10.0 % 0-10 [facility] Work Phone: Blood platelet mean volumeon 06-28-2021 Platelet mean volume (Bld) [Entitic vol] 11.8 fL 6.2-12.0 [facility] Work Phone: Determination of erythrocyte mean corpuscular volume (MCV)on 06-28-2021 MCV (RBC) [Entitic vol] 89.8 fL 80-94 [facility] Work Phone: Hematocrit Auto (Bld) [Volum e fraction]on 06-28-2021 Hematocrit (Bld) [Volume fraction] 38.8 % 40-54 [facility] Work Phone: Laboratory - Hematology and Cell countson 06-28-2021 Erythrocyte distribution width (RBC) [Entitic vol] 40.6 fL 35.1-43.9 [facility] Work Phone: Erythrocyte distribution width (RBC) [Ratio] 12.5 % 11.6-14.6 [facility] Work Phone: Immature granulocytes/100 WBC (Bld) 0.200 % 0.0-0.9 [facility] Work Phone: Comment on above: IG% - Immature Granu locytes (promyelocytes, myelocytes and metamyelocytes) > 1% indicates that a LEFT SHIFT is Present. MCH (RBC) [Entitic mass] 31.3 pg 27.0-32.0 [facility] Work Phone: Nucleated RBC/100 WBC (Bld) [Ratio] 0 % 0-5 [facility] Work Phone: MCHC Auto (RBC) [Mass/Vol]on 06-28-2021 MCHC (RBC) [Mass/Vol] 34.8 g/dL 32-36 [facility] Work [facility]: Platelets bldon 06-28-2021 Platelets (Bld) [#/Vol] 185 10*3/uL 150-450 [facility] Work Phone: Absolute lymphocyte counton 06-21-2021 Lymphocytes Auto (Unsp spec) [#/Vol] 1.78 10*3/uL 0.83-4.51 [facility] Work Phone: Basophil percentageon 2021 Basophils/100 WBC (Bld) 0.3 % 0-1 [facility] Work Phone: Eosinophils/100 WBC (Bld) 0.4 % 0-5 [facility] Work Phone: Neutrophils (Bld) [#/Vol] 4.2 10*3/uL 2.0-7.7 [facility] Work Phone: Neutrophils/100 WBC (Bld) 62.7 % 47-70 [facility] Work Phone: WBC (Bld) [#/Vol] 6.8 10*3/uL 4.4-11.0 [facility] Work Phone: Blood erythrocytes count (nu mber/volume)on 06-21-2021 RBC (Bld) [#/Vol] 4.21 10*6/uL 4.6-6.2 [facility] Work Phone: Blood hemoglobin measurement (mass/volume)on 06-21-2021 Hemoglobin (Bld) [Mass/Vol] 13.3 g/dL 13.0-16.5 [facility] Work Phone: Blood lymphocytes/100 leukoc yteson 06-21-2021 Lymphocytes/100 WBC (Bld) 26.3 % 19-41 [facility] Work Phone: Blood monocytes/100 leukocyt eson 06-21-2021 Monocytes/100 WBC (Bld) 9.9 % 0-10 [facility] Work Phone: Blood platelet mean volumeon 06-21-2021 Platelet mean volume (Bld) [Entitic vol] 11.5 fL 6.2-12.0 [facility] Work Phone: Determination of erythrocyte mean corpuscular volume (MCV)on 06-21-2021 MCV (RBC) [Entitic vol] 91.0 fL 80-94 [facility] Work Phone: Hematocrit Auto (Bld) [Volum e fraction]on 06-21-2021 Hematocrit (Bld) [Volume fraction] 38.3 % 40-54 [facility] Work Phone: Laboratory - Hematology and Cell countson 06-21-2021 Erythrocyte distribution width (RBC) [Entitic vol] 40.2 fL 35.1-43.9 [facility] Work Phone: Erythrocyte distribution width (RBC) [Ratio] 12.2 % 11.6-14.6 [facility] Work Phone: [phone] Immature granulocytes/100 WBC (Bld) 0.400 % 0.0-0.9 [facility] Work Phone: [phone] Comment on above: IG% - Immature Granu locytes (promyelocytes, myelocytes and metamyelocytes) > 1% indicates that a LEFT SHIFT is Present. MCH (RBC) [Entitic mass] 31.6 pg 27.0-32.0 [facility] Work Phone: [phone] Nucleated RBC/100 WBC (Bld) [Ratio] 0 % 0-5 [facility] Work Phone: MCHC Auto (RBC) [Mass/Vol]on 06-21-2021 MCHC (RBC) [Mass/Vol] 34.7 g/dL 32-36 [facility] [place] Work Phone: [phone] Platelets bldon 06-21-2021 Platelets (Bld) [#/Vol] 217 10*3/uL 150-450 [facility] Work Phone: [phone] Absolute lymphocyte counton 06-14-2021 Lymphocytes Auto (Unsp spec) [#/Vol] 1.41 10*3/uL 0.83-4.51 [facility] Work Phone: [phone] Basophil percentageon 2021 Basophils/100 WBC (Bld) 0.4 % 0-1 [facility] Work Phone: Chloride [Moles/Vol] 106 [facility]L 98-[facility]: Eosinophils/100 WBC (Bld) 0.6 % 0-5 [facility] Work Phone: [phone] Glucose [Mass/Vol] 121 mg/dL 74-106 [facility] Work Phone: [phone] Comment on above: Fasting Glucose resu lt from 100 to 125 mg/dL suggests IMPAIRED HOMEOSTASIS per A.D.A. criteria. Neutrophils (Bld) [#/Vol] 4.8 10*3/uL 2.0-7.7 [facility] Work Phone: Neutrophils/100 WBC (Bld) 69.9 % 47-70 [facility] Work Phone: Potassium [Moles/Vol] 3.7 mmol/L 3.5-5.1 [facility] [place] Work Phone: Sodium [Moles/Vol] 140 mmol/L 136-145 [facility] Work Phone: WBC (Bld) [#/Vol] 6.8 10*3/uL 4.4-11.0 [facility] Work Phone: Blood erythrocytes count (nu mber/volume)on 06-14-2021 RBC (Bld) [#/Vol] 4.78 10*6/uL 4.6-6.2 [facility] Work Phone: Blood hemoglobin measurement (mass/volume)on 06-14-2021 Hemoglobin (Bld) [Mass/Vol] 14.9 g/dL 13.0-16.5 [facility] Work Phone: Blood lymphocytes/100 leukoc yteson 06-14-2021 Lymphocytes/100 WBC (Bld) 20.8 % 19-41 [facility] Work Phone: Blood monocytes/100 leukocyt eson 06-14-2021 Monocytes/100 WBC (Bld) 7.7 % 0-10 [facility] Work Phone: Blood platelet mean volumeon 06-14-2021 Platelet mean volume (Bld) [Entitic vol] 11.5 fL 6.2-12.0 [facility] Work Phone: Determination of erythrocyte mean corpuscular volume (MCV)on 06-14-2021 MCV (RBC) [Entitic vol] 89.5 fL 80-94 [facility] Work Phone: Hematocrit Auto (Bld) [Volum e fraction]on 06-14-2021 Hematocrit (Bld) [Volume fraction] 42.8 % 40-54 [facility] Work Phone: Laboratory - Chemistry and C hemistry - challengeon 06-14-2021 CO2 [Moles/Vol] 27.0 mmol/L 21.0-32.0 [facility] Work Phone: Urea nitrogen/Creatinine [Mass ratio] 35.0 mg/mg 10-20 [facility] Work Phone: Laboratory - Hematology and Cell countson 06-14-2021 Erythrocyte distribution width (RBC) [Entitic vol] 39.3 fL 35.1-43.9 [facility] Work Phone: Erythrocyte distribution width (RBC) [Ratio] 12.0 % 11.6-14.6 [facility] Work Phone: Immature granulocytes/100 WBC (Bld) 0.600 % 0.0-0.9 [facility] Work Phone: Comment on above: IG% - Immature Granu locytes (promyelocytes, myelocytes and metamyelocytes) > 1% indicates that a LEFT SHIFT is Present. MCH (RBC) [Entitic mass] 31.2 pg 27.0-32.0 [facility] Work Phone: Nucleated RBC/100 WBC (Bld) [Ratio] 0 % 0-5 [facility] Work Phone: MCHC Auto (RBC) [Mass/Vol]on 06-14-2021 MCHC (RBC) [Mass/Vol] 34.8 g/dL 32-36 [facility]: No Panel Informationon 06-14 Estimated GFR (MDRD) Amer 185 mL/min >60 [facility] Work Phone: Comment on above: GFR Calc Estimated GFR (MDRD) Non-Af Amer 153 mL/min >60 [facility] Work Phone: Comment on above: Non- GFR Calc Platelets bldon 06-14-2021 Platelets (Bld) [#/Vol] 223 10*3/uL 150-450 [facility] Work Phone: Serum or plasma calcium gordy urement (mass/volume)on 06-14-2021 Calcium [Mass/Vol] 8.0 mg/dL 8.5-10.1 [facility] Work Phone: Serum or plasma creatinine m easurement (mass/volume)on 06-14-2021 Creatinine [Mass/Vol] 0.57 mg/dL 0.70-1.30 [facility] [place] Work Phone: Comment on above: The validity of the calculated GFR & GFRAA in patients over 70 years has not been determined. Clinical correlation is essential. Serum or plasma urea nitroge n measurement (mass/volume)on 06-14-2021 Urea nitrogen [Mass/Vol] 20 mg/dL 7-18 [facility] Work Phone: Thin prep Papanicolaou smear with manual screeningon 06-14-2021 Thin prep Papanicolaou smear with manual screening 7 5-15 [facility] Work Phone: Absolute lymphocyte counton 06-07-2021 Lymphocytes Auto (Unsp spec) [#/Vol] 1.38 10*3/uL 0.83-4.51 [facility] Work Phone: Basophil percentageon 2021 Basophils/100 WBC (Bld) 0.2 % 0-1 [facility] Work Phone: Eosinophils/100 WBC (Bld) 0.0 % 0-5 [facility] Work Phone: Neutrophils (Bld) [#/Vol] 7.3 10*3/uL 2.0-7.7 [facility] Work Phone: Neutrophils/100 WBC (Bld) 75.3 % 47-70 [facility] Work Phone: WBC (Bld) [#/Vol] 9.7 10*3/uL 4.4-11.0 [facility]: Blood erythrocytes count (nu mber/volume)on 06-07-2021 RBC (Bld) [#/Vol] 4.48 10*6/uL 4.6-6.2 [facility] Work Phone: Blood hemoglobin measurement (mass/volume)on 06-07-2021 Hemoglobin (Bld) [Mass/Vol] 13.8 g/dL 13.0-16.5 [facility] Work Phone: Blood lymphocytes/100 leukoc yteson 06-07-2021 Lymphocytes/100 WBC (Bld) 14.2 % 19-41 [facility] Work Phone: Blood monocytes/100 leukocyt eson 06-07-2021 Monocytes/100 WBC (Bld) 10.2 % 0-10 [facility] Work Phone: Blood platelet mean volumeon 06-07-2021 Platelet mean volume (Bld) [Entitic vol] 11.9 fL 6.2-12.0 [facility] Work Phone: Determination of erythrocyte mean corpuscular volume (MCV)on 06-07-2021 MCV (RBC) [Entitic vol] 92.9 fL 80-94 [facility] Work Phone: Hematocrit Auto (Bld) [Volum e fraction]on 06-07-2021 Hematocrit (Bld) [Volume fraction] 41.6 % 40-54 [facility] Work Phone: Laboratory - Hematology and Cell countson 06-07-2021 Erythrocyte distribution width (RBC) [Entitic vol] 43.8 fL 35.1-43.9 [facility] Work Phone: Erythrocyte distribution width (RBC) [Ratio] 12.8 % 11.6-14.6 [facility] Work Phone: Immature granulocytes/100 WBC (Bld) 0.100 % 0.0-0.9 [facility] Work Phone: Comment on above: IG% - Immature Granu locytes (promyelocytes, myelocytes and metamyelocytes) > 1% indicates that a LEFT SHIFT is Present. MCH (RBC) [Entitic mass] 30.8 pg 27.0-32.0 [facility] Work Phone: Nucleated RBC/100 WBC (Bld) [Ratio] 0 % 0-5 [facility] Work Phone: MCHC Auto (RBC) [Mass/Vol]on 06-07-2021 MCHC (RBC) [Mass/Vol] 33.2 g/dL 32-36 [facility] Work Phone: Platelets bldon 06-07-2021 Platelets (Bld) [#/Vol] 152 10*3/uL 150-450 [facility] Work Phone: Absolute lymphocyte counton 05-31-2021 Lymphocytes Auto (Unsp spec) [#/Vol] 1.72 10*3/uL 0.83-4.51 [facility] Work Phone: Basophil percentageon 2021 Basophils/100 WBC (Bld) 0.7 % 0-1 [facility] Work Phone: Eosinophils/100 WBC (Bld) 1.1 % 0-5 [facility] Work Phone: Neutrophils (Bld) [#/Vol] 3.3 10*3/uL 2.0-7.7 [facility] Work Phone: Neutrophils/100 WBC (Bld) 58.5 % 47-70 [facility] Work Phone: WBC (Bld) [#/Vol] 5.6 10*3/uL 4.4-11.0 [facility] Work Phone: Blood erythrocytes count (nu mber/volume)on 05-31-2021 RBC (Bld) [#/Vol] 4.44 10*6/uL 4.6-6.2 [facility] Work Phone: Blood hemoglobin measurement (mass/volume)on 05-31-2021 Hemoglobin (Bld) [Mass/Vol] 13.6 g/dL 13.0-16.5 [facility] Work Phone: Blood lymphocytes/100 leukoc yteson 05-31-2021 Lymphocytes/100 WBC (Bld) 30.7 % 19-41 [facility] Work Phone: Blood monocytes/100 leukocyt eson 05-31-2021 Monocytes/100 WBC (Bld) 8.6 % 0-10 [facility] Work Phone: Blood platelet mean volumeon 05-31-2021 Platelet mean volume (Bld) [Entitic vol] 11.2 fL 6.2-12.0 [facility] Work Phone: Determination of erythrocyte mean corpuscular volume (MCV)on 05-31-2021 MCV (RBC) [Entitic vol] 92.1 fL 80-94 [facility] Work Phone: Hematocrit Auto (Bld) [Volum e fraction]on 05-31-2021 Hematocrit (Bld) [Volume fraction] 40.9 % 40-54 [facility] Work Phone: Laboratory - Hematology and Cell countson 05-31-2021 Erythrocyte distribution width (RBC) [Entitic vol] 42.2 fL 35.1-43.9 [facility] Work Phone: Erythrocyte distribution width (RBC) [Ratio] 12.4 % 11.6-14.6 [facility] Work Phone: Immature granulocytes/100 WBC (Bld) 0.400 % 0.0-0.9 [facility] Work Phone: Comment on above: IG% - Immature Granu locytes (promyelocytes, myelocytes and metamyelocytes) > 1% indicates that a LEFT SHIFT is Present. MCH (RBC) [Entitic mass] 30.6 pg 27.0-32.0 [facility] Work Phone: Nucleated RBC/100 WBC (Bld) [Ratio] 0 % 0-5 [facility] Work Phone: MCHC Auto (RBC) [Mass/Vol]on 05-31-2021 MCHC (RBC) [Mass/Vol] 33.3 g/dL 32-36 [facility] Work Phone: Platelets bldon 05-31-2021 Platelets (Bld) [#/Vol] 189 10*3/uL 150-450 [facility] Work Phone: [phone] Absolute lymphocyte counton 05-24-2021 Lymphocytes Auto (Unsp spec) [#/Vol] 1.58 10*3/uL 0.83-4.51 [facility] Work Phone: Basophil percentageon 2021 Basophils/100 WBC (Bld) 0.8 % 0-1 [facility] Work Phone: [phone] Eosinophils/100 WBC (Bld) 2.4 % 0-5 [facility] Work Phone: [phone] Neutrophils (Bld) [#/Vol] 3.8 10*3/uL 2.0-7.7 [facility] Work Phone: [phone] Neutrophils/100 WBC (Bld) 60.3 % 47-70 [facility] Work Phone: [phone] WBC (Bld) [#/Vol] 6.3 10*3/uL 4.4-11.0 [facility] Work [facility]: Blood erythrocytes count (nu mber/volume)on 05-24-2021 RBC (Bld) [#/Vol] 4.50 10*6/uL 4.6-6.2 [facility] Work Phone: Blood hemoglobin measurement (mass/volume)on 05-24-2021 Hemoglobin (Bld) [Mass/Vol] 13.7 g/dL 13.0-16.5 [facility] Work Phone: Blood lymphocytes/100 leukoc yteson 05-24-2021 Lymphocytes/100 WBC (Bld) 25.0 % 19-41 [facility] Work Phone: Blood monocytes/100 leukocyt eson 05-24-2021 Monocytes/100 WBC (Bld) 11.2 % 0-10 [facility] Work Phone: Blood platelet mean volumeon 05-24-2021 Platelet mean volume (Bld) [Entitic vol] 11.3 fL 6.2-12.0 [facility] Work Phone: Determination of erythrocyte mean corpuscular volume (MCV)on 05-24-2021 MCV (RBC) [Entitic vol] 92.9 fL 80-94 [facility] Work Phone: Hematocrit Auto (Bld) [Volum e fraction]on 05-24-2021 Hematocrit (Bld) [Volume fraction] 41.8 % 40-54 [facility] Work Phone: Laboratory - Hematology and Cell countson 05-24-2021 Erythrocyte distribution width (RBC) [Entitic vol] 42.8 fL 35.1-43.9 [facility] Work Phone: Erythrocyte distribution width (RBC) [Ratio] 12.6 % 11.6-14.6 [facility] Work Phone: Immature granulocytes/100 WBC (Bld) 0.300 % 0.0-0.9 [facility] Work Phone: Comment on above: IG% - Immature Granu locytes (promyelocytes, myelocytes and metamyelocytes) > 1% indicates that a LEFT SHIFT is Present. MCH (RBC) [Entitic mass] 30.4 pg 27.0-32.0 [facility] Work Phone: Nucleated RBC/100 WBC (Bld) [Ratio] 0 % 0-5 [facility] Work Phone: MCHC Auto (RBC) [Mass/Vol]on 05-24-2021 MCHC (RBC) [Mass/Vol] 32.8 g/dL 32-36 [facility] Work Phone: Platelets bldon 05-24-2021 Platelets (Bld) [#/Vol] 207 10*3/uL 150-450 [facility] Work Phone: [phone] Absolute lymphocyte counton 05-17-2021 Lymphocytes Auto (Unsp spec) [#/Vol] 1.59 10*3/uL 0.83-4.51 [facility] Work Phone: Basophil percentageon 2021 Basophils/100 WBC (Bld) 0.7 % 0-1 [facility] Work Phone: [phone] Eosinophils/100 WBC (Bld) 1.7 % 0-5 [facility] Work Phone: Neutrophils (Bld) [#/Vol] 3.5 10*3/uL 2.0-7.7 [facility] Work Phone: Neutrophils/100 WBC (Bld) 59.5 % 47-70 [facility] Work Phone: WBC (Bld) [#/Vol] 5.9 10*3/uL 4.4-11.0 [facility] Work Phone: Blood erythrocytes count (nu mber/volume)on 05-17-2021 RBC (Bld) [#/Vol] 4.35 10*6/uL 4.6-6.2 [facility] Work Phone: Blood hemoglobin measurement (mass/volume)on 05-17-2021 Hemoglobin (Bld) [Mass/Vol] 13.4 g/dL 13.0-16.5 [facility] Work Phone: Blood lymphocytes/100 leukoc yteson 05-17-2021 Lymphocytes/100 WBC (Bld) 26.9 % 19-41 [facility] Work Phone: [phone] Blood monocytes/100 leukocyt eson 05-17-2021 Monocytes/100 WBC (Bld) 11.0 % 0-10 [facility] Work Phone: Blood platelet mean volumeon 05-17-2021 Platelet mean volume (Bld) [Entitic vol] 11.5 fL 6.2-12.0 [facility] Work Phone: Determination of erythrocyte mean corpuscular volume (MCV)on 05-17-2021 MCV (RBC) [Entitic vol] 92.9 fL 80-94 [facility] Work Phone: Hematocrit Auto (Bld) [Volum e fraction]on 05-17-2021 Hematocrit (Bld) [Volume fraction] 40.4 % 40-54 [facility] Work Phone: Laboratory - Hematology and Cell countson 05-17-2021 Erythrocyte distribution width (RBC) [Entitic vol] 43.4 fL 35.1-43.9 [facility] Work Phone: Erythrocyte distribution width (RBC) [Ratio] 12.7 % 11.6-14.6 [facility] Work Phone: Immature granulocytes/100 WBC (Bld) 0.200 % 0.0-0.9 [facility] Work Phone: Comment on above: IG% - Immature Granu locytes (promyelocytes, myelocytes and metamyelocytes) > 1% indicates that a LEFT SHIFT is Present. MCH (RBC) [Entitic mass] 30.8 pg 27.0-32.0 [facility] Work Phone: Nucleated RBC/100 WBC (Bld) [Ratio] 0 % 0-5 [facility] Work Phone: MCHC Auto (RBC) [Mass/Vol]on 05-17-2021 MCHC (RBC) [Mass/Vol] 33.2 g/dL 32-36 [facility] Work Phone: Platelets bldon 05-17-2021 Platelets (Bld) [#/Vol] 171 10*3/uL 150-450 [facility] Work Phone: ED Provider Noteon 2 ED Provider Note Emergency Department Encounter [facility] ED Patient: Kathya Hooper : 1955 Date [...] [employer] Timothy Burton DO 05/15/21 1530 [facility] ED Provider Note [facility] ED eMERGENCY dEPARTMENT eNCOUnter Pt Name: Kathya [...] of [place] (more content not included)... Normal [facility] Basophil percentageon 2021 Chloride [Moles/Vol] 105 mmol/L 98-[address] [facility] Work Phone: Glucose [Mass/Vol] 96 mg/dL 74-106 [facility] Work Phone: [phone] Potassium [Moles/Vol] 3.5 mmol/L 3.5-5.1 [facility] Work Phone: Sodium [Moles/Vol] 141 mmol/L 136-145 [facility] Work Phone: Laboratory - Chemistry and C hemistry - challengeon 05-14-2021 CO2 [Moles/Vol] 30.0 mmol/L 21.0-32.0 [facility] Work Phone: Urea nitrogen/Creatinine [Mass ratio] 39.2 mg/mg 10-20 [facility] Work Phone: No Panel Informationon 05-14 Estimated GFR (MDRD) Amer 210 mL/min >60 [facility] Work Phone: Comment on above: GFR Calc Estimated GFR (MDRD) Non-Af Amer 174 mL/min >60 [facility] Work Phone: Comment on above: Non- GFR Calc Serum or plasma calcium gordy urement (mass/volume)on 05-14-2021 Calcium [Mass/Vol] 8.4 mg/dL 8.5-10.1 [facility] Work Phone: Serum or plasma creatinine m easurement (mass/volume)on 05-14-2021 Creatinine [Mass/Vol] 0.51 mg/dL 0.70-1.30 [facility] Work Phone: Comment on above: The validity of the calculated GFR & GFRAA in patients over 70 years has not been determined. Clinical correlation is essential. Serum or plasma urea nitroge n measurement (mass/volume)on 05-14-2021 Urea nitrogen [Mass/Vol] 20 mg/dL 7-18 [facility] Work Phone: Thin prep Papanicolaou smear with manual screeningon 05-14-2021 Thin prep Papanicolaou smear with manual screening 6 5-15 [facility] Work Phone: Absolute lymphocyte counton 05-10-2021 Lymphocytes Auto (Unsp spec) [#/Vol] 1.65 10*3/uL 0.83-4.51 [facility] Work Phone: Basophil percentageon 2021 Basophils/100 WBC (Bld) 0.5 % 0-1 [facility] Work Phone: Eosinophils/100 WBC (Bld) 0.7 % 0-5 [facility] Work Phone: Neutrophils (Bld) [#/Vol] 5.6 10*3/uL 2.0-7.7 [facility] Work Phone: Neutrophils/100 WBC (Bld) 69.5 % 47-70 [facility] Work Phone: WBC (Bld) [#/Vol] 8.1 10*3/uL 4.4-11.0 [facility] Work Phone: Blood erythrocytes count (nu mber/volume)on 05-10-2021 RBC (Bld) [#/Vol] 4.52 10*6/uL 4.6-6.2 [facility] Work Phone: Blood hemoglobin measurement (mass/volume)on 05-10-2021 Hemoglobin (Bld) [Mass/Vol] 13.8 g/dL 13.0-16.5 [facility] Work Phone: Blood lymphocytes/100 leukoc yteson 05-10-2021 Lymphocytes/100 WBC (Bld) 20.4 % 19-41 [facility] Work Phone: Blood monocytes/100 leukocyt eson 05-10-2021 Monocytes/100 WBC (Bld) 8.4 % 0-10 [facility] Work Phone: Blood platelet mean volumeon 05-10-2021 Platelet mean volume (Bld) [Entitic vol] 11.3 fL 6.2-12.0 [facility] Work Phone: Determination of erythrocyte mean corpuscular volume (MCV)on 05-10-2021 MCV (RBC) [Entitic vol] 91.8 fL 80-94 [facility] Work Phone: Hematocrit Auto (Bld) [Volum e fraction]on 05-10-2021 Hematocrit (Bld) [Volume fraction] 41.5 % 40-54 [facility] Work Phone: Laboratory - Hematology and Cell countson 05-10-2021 Erythrocyte distribution width (RBC) [Entitic vol] 42.9 fL 35.1-43.9 [facility] Work Phone: Erythrocyte distribution width (RBC) [Ratio] 12.8 % 11.6-14.6 [facility] Work Phone: Immature granulocytes/100 WBC (Bld) 0.500 % 0.0-0.9 [facility] Work Phone: Comment on above: IG% - Immature Granu locytes (promyelocytes, myelocytes and metamyelocytes) > 1% indicates that a LEFT SHIFT is Present. MCH (RBC) [Entitic mass] 30.5 pg 27.0-32.0 [facility] Work Phone: Nucleated RBC/100 WBC (Bld) [Ratio] 0 % 0-5 [facility] Work Phone: MCHC Auto (RBC) [Mass/Vol]on 05-10-2021 MCHC (RBC) [Mass/Vol] 33.3 g/dL 32-36 [facility]: Platelets bldon 05-10-2021 Platelets (Bld) [#/Vol] 191 10*3/uL 150-450 [facility] Work Phone: Absolute lymphocyte counton 05-03-2021 Lymphocytes Auto (Unsp spec) [#/Vol] 1.69 10*3/uL 0.83-4.51 [facility] Work Phone: Basophil percentageon 2021 Basophils/100 WBC (Bld) 0.6 % 0-1 [facility] Work Phone: Eosinophils/100 WBC (Bld) 0.7 % 0-5 [facility] Work Phone: Neutrophils (Bld) [#/Vol] 4.6 10*3/uL 2.0-7.7 [facility] Work Phone: Neutrophils/100 WBC (Bld) 64.4 % 47-70 [facility] Work Phone: WBC (Bld) [#/Vol] 7.2 10*3/uL 4.4-11.0 [facility] Work Phone: Blood erythrocytes count (nu mber/volume)on 05-03-2021 RBC (Bld) [#/Vol] 4.55 10*6/uL 4.6-6.2 [facility] Work Phone: Blood hemoglobin measurement (mass/volume)on 05-03-2021 Hemoglobin (Bld) [Mass/Vol] 14.0 g/dL 13.0-16.5 [facility] Work Phone: Blood lymphocytes/100 leukoc yteson 05-03-2021 Lymphocytes/100 WBC (Bld) 23.6 % 19-41 [facility] Work Phone: Blood monocytes/100 leukocyt eson 05-03-2021 Monocytes/100 WBC (Bld) 10.3 % 0-10 [facility] Work Phone: Blood platelet mean volumeon 05-03-2021 Platelet mean volume (Bld) [Entitic vol] 11.7 fL 6.2-12.0 [facility] Work Phone: Determination of erythrocyte mean corpuscular volume (MCV)on 05-03-2021 MCV (RBC) [Entitic vol] 93.2 fL 80-94 [facility] Work Phone: Hematocrit Auto (Bld) [Volum e fraction]on 05-03-2021 Hematocrit (Bld) [Volume fraction] 42.4 % 40-54 [facility] Work Phone: Laboratory - Hematology and Cell countson 05-03-2021 Erythrocyte distribution width (RBC) [Entitic vol] 44.2 fL 35.1-43.9 [facility] Work Phone: Erythrocyte distribution width (RBC) [Ratio] 13.1 % 11.6-14.6 [facility] Work Phone: [phone] Immature granulocytes/100 WBC (Bld) 0.400 % 0.0-0.9 [facility] Work Phone: Comment on above: IG% - Immature Granu locytes (promyelocytes, myelocytes and metamyelocytes) > 1% indicates that a LEFT SHIFT is Present. MCH (RBC) [Entitic mass] 30.8 pg 27.0-32.0 [facility] Work Phone: [phone] Nucleated RBC/100 WBC (Bld) [Ratio] 0 % 0-5 [facility] Work Phone: MCHC Auto (RBC) [Mass/Vol]on 05-03-2021 MCHC (RBC) [Mass/Vol] 33.0 g/dL 32-36 [facility] Work Phone: [phone] Platelets bldon 05-03-2021 Platelets (Bld) [#/Vol] 175 10*3/uL 150-450 [facility] Work Phone: [phone] Absolute lymphocyte counton 04-26-2021 Lymphocytes Auto (Unsp spec) [#/Vol] 1.68 10*3/uL 0.83-4.51 [facility] Work Phone: [phone] Basophil percentageon 2020 Eosinophils/100 WBC (Bld) 1.1 % 0-5 [facility] Work Phone: [phone] Neutrophils (Bld) [#/Vol] 4.5 10*3/uL 2.0-7.7 [facility] Work Phone: WBC (Bld) [#/Vol] 7.2 10*3/uL 4.4-11.0 [facility] Work Phone: Blood erythrocytes count (nu mber/volume)on 04-26-2021 RBC (Bld) [#/Vol] 4.32 10*6/uL 4.6-6.2 [facility] Work Phone: Blood hemoglobin measurement (mass/volume)on 04-26-2021 Hemoglobin (Bld) [Mass/Vol] 13.5 g/dL 13.0-16.5 [facility] Work Phone: Blood lymphocytes/100 leukoc yteson 04-26-2021 Lymphocytes/100 WBC (Bld) 23.5 % 19-41 [facility] Work Phone: Blood monocytes/100 leukocyt eson 04-26-2021 Monocytes/100 WBC (Bld) 11.0 % 0-10 [facility] Work Phone: Blood platelet mean volumeon 04-26-2021 Platelet mean volume (Bld) [Entitic vol] 11.0 fL 6.2-12.0 [facility] Work Phone: Determination of erythrocyte mean corpuscular volume (MCV)on 04-26-2021 MCV (RBC) [Entitic vol] 93.3 fL 80-94 [facility] Work Phone: Hematocrit Auto (Bld) [Volum e fraction]on 04-26-2021 Hematocrit (Bld) [Volume fraction] 40.3 % 40-54 [facility] Work Phone: Laboratory - Hematology and Cell countson 04-26-2021 Basophils/100 WBC (Unsp spec) 0.6 % 0-1 [facility] Work Phone: Erythrocyte distribution width (RBC) [Entitic vol] 45.8 fL 35.1-43.9 [facility] Work Phone: Erythrocyte distribution width (RBC) [Ratio] 13.2 % 11.6-14.6 [facility] Work Phone: Immature granulocytes/100 WBC (Bld) 0.600 % 0.0-0.9 [facility] Work Phone: Comment on above: IG% - Immature Granu locytes (promyelocytes, myelocytes and metamyelocytes) > 1% indicates that a LEFT SHIFT is Present. MCH (RBC) [Entitic mass] 31.3 pg 27.0-32.0 [facility] Work Phone: Neutrophils/100 WBC (Bld) 63.2 % 47-70 [facility] Work Phone: Nucleated RBC/100 WBC (Bld) [Ratio] 0 % 0-5 [facility] Work Phone: MCHC Auto (RBC) [Mass/Vol]on 04-26-2021 MCHC (RBC) [Mass/Vol] 33.5 g/dL 32-36 [facility] Work Phone: [phone] Platelets bldon 04-26-2021 Platelets (Bld) [#/Vol] 172 10*3/uL 150-450 [facility] Work Phone: [phone] Absolute lymphocyte counton 04-19-2021 Lymphocytes Auto (Unsp spec) [#/Vol] 1.31 10*3/uL 0.83-4.51 [facility] Work Phone: [phone] Basophil percentageon 2020 Eosinophils/100 WBC (Bld) 2.8 % 0-5 [facility] Work Phone: [phone] Neutrophils (Bld) [#/Vol] 3.0 10*3/uL 2.0-7.7 [facility] Work Phone: WBC (Bld) [#/Vol] 5.0 10*3/uL 4.4-11.0 [facility] Work Phone: [phone] Blood erythrocytes count (nu mber/volume)on 04-19-2021 RBC (Bld) [#/Vol] 4.26 10*6/uL 4.6-6.2 [facility] Work Phone: [phone] Blood hemoglobin measurement (mass/volume)on 04-19-2021 Hemoglobin (Bld) [Mass/Vol] 13.2 g/dL 13.0-16.5 [facility] Work Phone: Blood lymphocytes/100 leukoc yteson 04-19-2021 Lymphocytes/100 WBC (Bld) 26.1 % 19-41 [facility] Work Phone: Blood monocytes/100 leukocyt eson 04-19-2021 Monocytes/100 WBC (Bld) 10.0 % 0-10 [facility] Work Phone: Blood platelet mean volumeon 04-19-2021 Platelet mean volume (Bld) [Entitic vol] 10.9 fL 6.2-12.0 [facility] Work Phone: Determination of erythrocyte mean corpuscular volume (MCV)on 04-19-2021 MCV (RBC) [Entitic vol] 93.7 fL 80-94 [facility] Work Phone: Hematocrit Auto (Bld) [Volum e fraction]on 04-19-2021 Hematocrit (Bld) [Volume fraction] 39.9 % 40-54 [facility] Work Phone: Laboratory - Hematology and Cell countson 04-19-2021 Basophils/100 WBC (Unsp spec) 1.0 % 0-1 [facility] Work Phone: Erythrocyte distribution width (RBC) [Entitic vol] 46.7 fL 35.1-43.9 [facility] Work Phone: Erythrocyte distribution width (RBC) [Ratio] 13.7 % 11.6-14.6 [facility] Work Phone: [phone] Immature granulocytes/100 WBC (Bld) 0.400 % 0.0-0.9 [facility] Work Phone: Comment on above: IG% - Immature Granu locytes (promyelocytes, myelocytes and metamyelocytes) > 1% indicates that a LEFT SHIFT is Present. MCH (RBC) [Entitic mass] 31.0 pg 27.0-32.0 [facility] Work Phone: Neutrophils/100 WBC (Bld) 59.7 % 47-70 [facility] Work Phone: Nucleated RBC/100 WBC (Bld) [Ratio] 0 % 0-5 [facility] Work Phone: MCHC Auto (RBC) [Mass/Vol]on 04-19-2021 MCHC (RBC) [Mass/Vol] 33.1 g/dL 32-36 [facility] Work Phone: Platelets bldon 04-19-2021 Platelets (Bld) [#/Vol] 165 10*3/uL 150-450 [facility] Work Phone: Absolute lymphocyte counton 04-12-2021 Lymphocytes Auto (Unsp spec) [#/Vol] 1.41 10*3/uL 0.83-4.51 [facility] Work Phone: Basophil percentageon 2020 Bilirubin [Mass/Vol] 0.40 mg/dL 0.20-1.00 [facility] [place] Work Phone: Comment on above: For patients on eltr ombopag therapy, use of [employer] [place] TBIL is not recommended. Eosinophils/100 WBC (Bld) 0.9 % 0-5 [facility] Work Phone: Neutrophils (Bld) [#/Vol] 3.4 10*3/uL 2.0-7.7 [facility] Work Phone: [phone] Protein [Mass/Vol] 5.7 g/dL 6.4-8.2 [facility] Work Phone: WBC (Bld) [#/Vol] 5.5 10*3/uL 4.4-11.0 [facility] Work Phone: Blood erythrocytes count (nu mber/volume)on 04-12-2021 RBC (Bld) [#/Vol] 4.09 10*6/uL 4.6-6.2 [facility] Work Phone: Blood hemoglobin measurement (mass/volume)on 04-12-2021 Hemoglobin (Bld) [Mass/Vol] 12.4 g/dL 13.0-16.5 [facility] Work Phone: Blood lymphocytes/100 leukoc yteson 04-12-2021 Lymphocytes/100 WBC (Bld) 25.9 % 19-41 [facility] Work Phone: Blood monocytes/100 leukocyt eson 04-12-2021 Monocytes/100 WBC (Bld) 9.2 % 0-10 [facility] Work Phone: Blood platelet mean volumeon 04-12-2021 Platelet mean volume (Bld) [Entitic vol] 11.1 fL 6.2-12.0 [facility] Work Phone: Determination of erythrocyte mean corpuscular volume (MCV)on 04-12-2021 MCV (RBC) [Entitic vol] 93.4 fL 80-94 [facility] Work Phone: Direct bilirubinon Bilirubin.direct [Mass/Vol] 0.08 mg/dL 0.00-0.30 [facility] Work Phone: Hematocrit Auto (Bld) [Volum e fraction]on 04-12-2021 Hematocrit (Bld) [Volume fraction] 38.2 % 40-54 [facility] Work Phone: Laboratory - Chemistry and C hemistry - challengeon 04-12-2021 ALP [Catalytic activity/Vol] 101 U/L 45-117 [facility] Work Phone: ALT [Catalytic activity/Vol] 30 U/L 16-61 [facility] Work Phone: Globulin (S) [Mass/Vol] 2.9 g/dL 2.2-4.2 [facility] Work Phone: Laboratory - Hematology and Cell countson 04-12-2021 Basophils/100 WBC (Unsp spec) 0.6 % 0-1 [facility] Work Phone: Erythrocyte distribution width (RBC) [Entitic vol] 46.7 fL 35.1-43.9 [facility] Work Phone: Erythrocyte distribution width (RBC) [Ratio] 13.7 % 11.6-14.6 [facility] Work Phone: Immature granulocytes/100 WBC (Bld) 0.400 % 0.0-0.9 [facility] Work Phone: Comment on above: IG% - Immature Granu locytes (promyelocytes, myelocytes and metamyelocytes) > 1% indicates that a LEFT SHIFT is Present. MCH (RBC) [Entitic mass] 30.3 pg 27.0-32.0 [facility] Work Phone: Neutrophils/100 WBC (Bld) 63.0 % 47-70 [facility] Work Phone: Nucleated RBC/100 WBC (Bld) [Ratio] 0 % 0-5 [facility] Work Phone: MCHC Auto (RBC) [Mass/Vol]on 04-12-2021 MCHC (RBC) [Mass/Vol] 32.5 g/dL 32-36 [facility] [place] Work Phone: Platelets bldon 04-12-2021 Platelets (Bld) [#/Vol] 173 10*3/uL 150-450 [facility] Work Phone: Serum or plasma albumin gordy urement (mass/volume)on 04-12-2021 Albumin [Mass/Vol] 2.8 g/dL 3.2-5.0 [facility] Work Phone: Thin prep Papanicolaou smear with manual screeningon 04-12-2021 Thin prep Papanicolaou smear with manual screening 15 U/L 15-37 [facility] Work Phone: Absolute lymphocyte counton 04-07-2021 Lymphocytes Auto (Unsp spec) [#/Vol] 1.55 10*3/uL 0.83-4.51 [facility] Work Phone: Basophil percentageon 2020 Eosinophils/100 WBC (Bld) 0.7 % 0-5 [facility] Work Phone: Neutrophils (Bld) [#/Vol] 5.3 10*3/uL 2.0-7.7 [facility] Work Phone: WBC (Bld) [#/Vol] 8.1 10*3/uL 4.4-11.0 [facility] Work Phone: Blood erythrocytes count (nu mber/volume)on 04-07-2021 RBC (Bld) [#/Vol] 4.18 10*6/uL 4.6-6.2 [facility] Work Phone: Blood hemoglobin measurement (mass/volume)on 04-07-2021 Hemoglobin (Bld) [Mass/Vol] 12.9 g/dL 13.0-16.5 [facility] Work Phone: Blood lymphocytes/100 leukoc yteson 04-07-2021 Lymphocytes/100 WBC (Bld) 19.2 % 19-41 [facility] Work Phone: Blood monocytes/100 leukocyt eson 04-07-2021 Monocytes/100 WBC (Bld) 13.0 % 0-10 [facility] Work Phone: Blood platelet mean volumeon 04-07-2021 Platelet mean volume (Bld) [Entitic vol] 10.9 fL 6.2-12.0 [facility] Work Phone: Determination of erythrocyte mean corpuscular volume (MCV)on 04-07-2021 MCV (RBC) [Entitic vol] 92.6 fL 80-94 [facility] Work Phone: Hematocrit Auto (Bld) [Volum e fraction]on 04-07-2021 Hematocrit (Bld) [Volume fraction] 38.7 % 40-54 [facility] Work Phone: Laboratory - Hematology and Cell countson 04-07-2021 Basophils/100 WBC (Unsp spec) 0.6 % 0-1 [facility] Work Phone: Erythrocyte distribution width (RBC) [Entitic vol] 45.8 fL 35.1-43.9 [facility] Work Phone: Erythrocyte distribution width (RBC) [Ratio] 13.5 % 11.6-14.6 [facility] Work Phone: Immature granulocytes/100 WBC (Bld) 0.500 % 0.0-0.9 [facility] Work Phone: [phone] Comment on above: IG% - Immature Granu locytes (promyelocytes, myelocytes and metamyelocytes) > 1% indicates that a LEFT SHIFT is Present. MCH (RBC) [Entitic mass] 30.9 pg 27.0-32.0 [facility] Work Phone: Neutrophils/100 WBC (Bld) 66.0 % 47-70 [facility] Work Phone: Nucleated RBC/100 WBC (Bld) [Ratio] 0 % 0-5 [facility] Work Phone: MCHC Auto (RBC) [Mass/Vol]on 04-07-2021 MCHC (RBC) [Mass/Vol] 33.3 g/dL 32-36 [facility] [place] Work Phone: Platelets bldon 04-07-2021 Platelets (Bld) [#/Vol] 210 10*3/uL 150-450 [facility] Work Phone: CULTURE BLOODon 03-25-2021 Microscopic examination of blood, culture CULTURE BLOOD --> Status: F No growth at 5 days. Normal [employer] [facility] Comment on above: Performed By: #### C /BLD ####[employer] [place] [address] CULTURE BLOOD (Two)on 2020 Microscopic examination of blood, culture CULTURE BLOOD (Two) --> Status: F No growth at 5 days. Normal [employer] [facility] Comment on above: Performed By: #### C /BLT ####[employer] [place] [address] Basic Metabolic Panelon 11-2 Calcium [Mass/Vol] 8.8 mg/dL Normal 8.4-10.4 [facility] Comment on above: Performed By: #### H MAYKEL, BMP3 #### [facility] [address] [place] [address] Glucose [Mass/Vol] 103 mg/dL High 70-100 [facility] Comment on above: Performed By: #### H MAYKEL BMP3 #### [facility] [address] [place] [address] Anion gap [Moles/Vol] 5 mmol/L Normal 3-13 [facility] Comment on above: Performed By: #### H MAYKEL BMP3 #### [facility] [address] [place] [address] CO2 [Moles/Vol] 26 mmol/L Normal 22-30 [facility] Comment on above: Performed By: #### H MAYKEL BMP3 #### [facility] [address] [place] [address] Creatinine [Mass/Vol] 0.49 mg/dL Low 0.52-1.25 [facility] Comment on above: Performed By: #### H MAYKEL BMP3 #### [facility] [address] [place] [address] eGFR OTHER > 90.0 Normal >60 [facility] Comment on above: Result Comment: KDIG [...] Performed By: #### H MAYKEL BMP3 #### [facility] [address] [place] [address] GFR/1.73 sq M.predicted among blacks MDRD (S/P/Bld) [Vol rate/Area] mL/min/{1.73_m2} Normal >60 [facility] Comment on above: Performed By: #### H MAYKEL, BMP3 #### [facility] [address] [place] [address] Urea nitrogen [Mass/Vol] 30 mg/dL High 7-17 [facility] Comment on above: Performed By: #### H MAYKEL BMP3 #### [facility] [address] [place] [address] Chloride [Moles/Vol] 112 mmol/L High 98-107 [facility] Comment on above: Performed By: #### H MAYKEL, BMP3 #### [facility] [address] [place] [address] Potassium [Moles/Vol] 4.1 mmol/L Normal 3.5-5.1 [facility] Comment on above: Performed By: #### H MAYKEL, BMP3 #### [facility] [address] [place] [address] Sodium [Moles/Vol] 142 mmol/L Normal 135-145 [facility] Comment on above: Performed By: #### H MAYKEL, BMP3 #### [facility] [address] [place] [address] Anion gap [Moles/Vol] 5 mmol/L 3 - 13 mmol/L [facility] Work Phone: Calcium [Mass/Vol] 8.8 mg/dL 8.4 - 10. 4 mg/dL [facility] Work Phone: Chloride [Moles/Vol] 112 mmol/L High 98 - 10 7 mmol/L [facility] Work Phone: CO2 [Moles/Vol] 26 mmol/L 22 - 30 mmol/L [facility] Work Phone: Creatinine [Mass/Vol] 0.49 mg/dL Low 0.52 - 1.25 mg/dL [email or web address] Work Phone: EGFR IF NonAfrican Latvian >90.0 >60 mL/min [email or web address] Work Phone: Comment on above: KDIGO guidelines [...] MDRD (S/P/Bld) [Vol rate/Area] mL/min/{1.73_m2} >60 mL/min [email or web address] Work Phone: Glucose [Mass/Vol] 103 mg/dL High 70 - 100 mg/dL [email or web address] Work Phone: Interpretation and review of laboratory results Abnormal [email or web address] Work Phone: Potassium [Moles/Vol] 4.1 mmol/L 3.5 - 5.1 mmol/L [email or web address] Work Phone: Sodium [Moles/Vol] 142 mmol/L 135 - 145 mmol/L [email or web address] Work Phone: Urea nitrogen (BldV) [Mass/Vol] 30 mg/dL High 7 - 17 mg/dL [email or web address] Work Phone: [facility], [address] [place], [place] [address] [facility] Work Phone: CBC Auto Differentialon 11-2 Hematocrit (Bld) [Volume fraction] 35.0 % Low 40.0 - 52.0 % [email or web address] Work Phone: Hemoglobin.gastrointest inal spec 1 Ql (Stl) 11.7 g/dL Low 13.0 - 18.0 g/dL [email or web address] Work Phone: Interpretation and review of laboratory results Abnormal [email or web address] Work Phone: MCH (RBC) [Entitic mass] 31.0 pg 26.0 - 34.0 pg [email or web address] Work Phone: MCHC (RBC) [Mass/Vol] 33.4 % 32.0 - 36.0 % [employer] Phone: MCV (RBC) [Entitic vol] 92.7 fL 80.0 - 98.0 fL [employer] Phone: Platelet distribution width (Bld) [Ratio] 13.4 % 11.5 - 14.5 % [employer] Phone: Platelet mean volume (Bld) [Entitic vol] 8.6 fL 7.4 - 10.4 fL [email or web address] Work Phone: Platelets (Bld) [#/Vol] 236 10*3/uL 140 - 440 10*3/uL [email or web address] Work Phone: RBC (Bld) [#/Vol] 3.77 10*6/uL Low 4.40 - 5.9 0 10*6/uL [facility] Work Phone: WBC (Bld) [#/Vol] 12.8 10*3/uL High 3.6 - 10.7 10*3/uL [email or web address] Work Phone: Test Performed by [employer], [address] [place], [place] [id number] [place] [address] LAB [facility] Work Phone: Glucose,Bedsideon 03-24-2021 Glucose [Mass/Vol] 93 mg/dL Normal 70-100 [facility] Comment on above: Result Comment: Test performed by glucose meter. Results may be 10%-15% lower than serum/plasma values. (CLIA ID [id number]) Performed By: #### H EMDMaurice, BMP3 #### [facility] [address] [place] [address] Glucose [Mass/Vol] 166 mg/dL High 70-100 [facility] Comment on above: Result Comment: Test performed by glucose meter. Results may be 10%-15% lower than serum/plasma values. (CLIA ID [id number]) Performed By: #### B GLU ####[facility] [place] [address] Hemogram w/ Autodiffon 03-24 Erythrocyte distribution width (RBC) [Ratio] 13.4 % Normal 11.5-14.5 [facility] Comment on above: Performed By: #### H EMDF, BMP3 #### [facility] [address] [place] [address] Hematocrit (Bld) [Volume fraction] 35.0 % Low 40.0-52.0 [facility] Comment on above: Performed By: #### H EMDF, BMP3 #### [facility] [address] [place] [address] Hemoglobin (Bld) [Mass/Vol] 11.7 g/dL Low 13.0-18.0 [facility] Comment on above: Performed By: #### H EMDF, BMP3 #### [facility] [address] [place] [address] MCH (RBC) [Entitic mass] 31.0 pg Normal 26.0-34.0 [facility] Comment on above: Performed By: #### H EMDF, BMP3 #### [facility] [address] [place] [address] MCHC 33.4 % Normal 32.0-36.0 [facility] Comment on above: Performed By: #### H EMDF, BMP3 #### [facility] [address] [place] [address] MCV (RBC) [Entitic vol] 92.7 fL Normal 80.0-98.0 [facility] Comment on above: Performed By: #### H EMDF, BMP3 #### [facility] [address] [place] [address] Platelet mean volume (Bld) [Entitic vol] 8.6 fL Normal 7.4-10.4 [facility] Comment on above: Performed By: #### H EMDF, BMP3 #### [facility] [address] [place] [address] Platelets (Bld) [#/Vol] 236 10*3/uL Normal 140-440 [facility] Comment on above: Performed By: #### H EMDF, BMP3 #### [facility] [address] [place] [address] RBC (Bld) [#/Vol] 3.77 10*6/uL Low 4.40-5.90 [facility] Comment on above: Performed By: #### H EMDF, BMP3 #### [facility] [address] [place] [address] WBC (Bld) [#/Vol] 12.8 10*3/uL High 3.6-10.7 [facility] Comment on above: Performed By: #### H EMDF, BMP3 #### [facility] [address] [place] [address] Manual Diffon 03-24-2021 Abs Lymph Cnt 1.7 10*3/uL Normal 1.1-4.5 [facility] Comment on above: Performed By: #### H EMDF, BMP3 #### [facility] [address] [place] [address] Abs Monocyte Cnt 0.8 10*3/uL Normal 0.2-1.1 [facility] Comment on above: Performed By: #### H EMDF, BMP3 #### [facility] [address] [place] [address] Abs Neutrophile Cnt 10.1 10*3/uL High 2.2-8.2 [facility] Comment on above: Performed By: #### H EMDF, BMP3 #### [facility] [address] [place] [address] Anisocytosis Slight Normal [facility] Comment on above: Performed By: #### H EMDF, BMP3 #### [facility] [address] [place] [address] Atypical Lymphocytes 2 % Abnormal <1 [facility] Comment on above: Performed By: #### H EMDF, BMP3 #### [facility] [address] [place] [address] Abdoul Cells Slight Normal [facility] Comment on above: Performed By: #### H EMDF, BMP3 #### [facility] [address] [place] [address] Lymphocytes 11 % Low 20-40 [facility] Comment on above: Performed By: #### H EMDF, BMP3 #### [facility] [address] [place] [address] Monocytes 6 % Normal 2-10 [facility] Comment on above: Performed By: #### H EMDF, BMP3 #### [facility] [address] [place] [address] Myelocytes 2 % Abnormal <1 [facility] Comment on above: Performed By: #### H EMDF, BMP3 #### [facility] [address] [place] [address] Ovalocytes Slight Normal [facility] Comment on above: Performed By: #### H EMDF, BMP3 #### [facility] [address] [place] [address] Poikilocytosis Slight Normal [facility] Comment on above: Performed By: #### H EMDF, BMP3 #### [facility] [address] [place] [address] Polychromasia Slight Normal [facility] Comment on above: Performed By: #### H EMDF, BMP3 #### [facility] [address] [place] [address] RBC Morphology ABNORMAL Normal [facility] Comment on above: Performed By: #### H EMDF, BMP3 #### [facility] [address] [place] [address] Seg Neutrophils 79 % Normal 40-80 [facility] Comment on above: Performed By: #### H EMDF, BMP3 #### [facility] [address] [place] [address] Tear Drop Forms Slight Normal [facility] Comment on above: Performed By: #### H EMDF, BMP3 #### [facility] [address] [place] [address] Abs Baso Cnt 0.0 10*3/uL Normal 0.0-0.2 [facility] Comment on above: Performed By: #### H EMDF, BMP3 #### [facility] [address] [place] [address] Abs Eosin Cnt 0.0 10*3/uL Normal 0.0-0.5 [facility] Comment on above: Performed By: #### H EMDF, BMP3 #### [facility] [address] [place] [address] Bands 0 % Normal 0-3 [facility] Comment on above: Performed By: #### H EMDF, BMP3 #### [facility] [address] [place] [address] Basophils 0 % Normal 0-2 [facility] Comment on above: Performed By: #### H EMDF, BMP3 #### [facility] [address] [place] [address] Cells counted 100 Normal [facility] Comment on above: Performed By: #### H EMDF, BMP3 #### [facility] [address] [place] [address] Eosinophils 0 % Low 1-6 [facility] Comment on above: Performed By: #### H EMDF, BMP3 #### [facility] [address] [place] [address] Manual Differentialon 2020 Absolute Baso # 0.0 10*3/uL 0.0 - 0.2 10*3/uL [employer] Work Phone: Absolute Eos # 0.0 10*3/uL 0.0 - 0.5 10*3/uL [employer] Work Phone: Absolute Lymph # 1.7 10*3/uL 1.1 - 4.5 10*3/uL [employer] [facility] Work Phone: Absolute [place] # 0.8 10*3/uL 0.2 - 1.1 10*3/uL [...] 100 [facility] Work Phone: Test Performed by [employer] [facility], [address] [place], [place] [address] [facility] Work Phone: POCT Glucoseon 03-24-2021 Glucose [Mass/Vol] 93 mg/dL 70 - 100 mg/dL [facility] Work Phone: Comment on above: Test performed by gl ucose meter. Results may be 10%-15% lower than serum/plasma values. (CLIA ID [id number]) Test Performed by [facility], [address] [place] [address] [facility] Work Phone: Basic Metabolic Panelon 11-2 Calcium [Mass/Vol] 8.8 mg/dL Normal 8.4-10.4 [facility] Comment on above: Performed By: #### H EMDF, BMP3 #### [facility] [address] [place] [address] Glucose [Mass/Vol] 143 mg/dL High 70-100 [facility] Comment on above: Performed By: #### H EMDF, BMP3 #### [facility] [address] [place] [address] Anion gap [Moles/Vol] 8 mmol/L Normal 3-13 [facility] Comment on above: Performed By: #### H EMDF, BMP3 #### [facility] [address] [place] [address] CO2 [Moles/Vol] 24 mmol/L Normal 22-30 [facility] Comment on above: Performed By: #### H EMDF, BMP3 #### [facility] [address] [place] [address] Creatinine [Mass/Vol] 0.47 mg/dL Low 0.52-1.25 [facility] Comment on above: Performed By: #### H EMDF, BMP3 #### [facility] [address] [place] [address] eGFR OTHER > 90.0 Normal >60 [facility] Comment on above: Result Comment: KDIG [...] Performed By: #### Kerri BRAR BMP3 #### [facility] [address] [place] [address] GFR/1.73 sq M.predicted among blacks MDRD (S/P/Bld) [Vol rate/Area] mL/min/{1.73_m2} Normal >60 [facility] Comment on above: Performed By: #### Kerri BRAR BMP3 #### [facility] [address] [place] [address] Urea nitrogen [Mass/Vol] 32 mg/dL High 7-17 [facility] Comment on above: Performed By: #### Kerri BRAR BMP3 #### [facility] [address] [place] [address] Chloride [Moles/Vol] 110 mmol/L High 98-107 [facility] Comment on above: Performed By: #### Kerri BRAR BMP3 #### [facility] [address] [place] [address] Potassium [Moles/Vol] 3.9 mmol/L Normal 3.5-5.1 [facility] Comment on above: Performed By: #### Kerri BRAR BMP3 #### [facility] [address] [place] [address] Sodium [Moles/Vol] 142 mmol/L Normal 135-145 [facility] Comment on above: Performed By: #### Kerri BRAR BMP3 #### [facility] [address] [place] [address] Anion gap [Moles/Vol] 8 mmol/L 3 - 13 mmol/L [facility] Work Phone: Calcium [Mass/Vol] 8.8 mg/dL 8.4 - 10. 4 mg/dL [facility] Work Phone: Chloride [Moles/Vol] 110 mmol/L High 98 - 10 7 mmol/L [facility] Work Phone: CO2 [Moles/Vol] 24 mmol/L 22 - 30 mmol/L [facility] Work Phone: Creatinine [Mass/Vol] 0.47 mg/dL Low 0.52 - 1.25 mg/dL [facility] Work Phone: EGFR IF NonAfrican Latvian >90.0 >60 mL/min [facility] Work Phone: Comment on above: KDIGO [...] results Abnormal [facility] Work Phone: Potassium [Moles/Vol] 3.9 mmol/L 3.5 - 5.1 mmol/L [facility] Work Phone: Sodium [Moles/Vol] 142 mmol/L 135 - 145 mmol/L [facility] Work Phone: Urea nitrogen (BldV) [Mass/Vol] 32 mg/dL High 7 - 17 mg/dL [email or web address] Work Phone: Test Performed by [facility], [address], [place], [place] [address] [facility] Work Phone: CBC Auto Differentialon 11-2 Absolute Baso # 0.0 10*3/uL 0.0 - 0.2 10*3/uL [facility] Work Phone: Absolute Neut # 13.5 10*3/uL High 1.8 - 7.0 10*3/uL [facility] Work Phone: Basophils/100 WBC (Bld) 0.3 % 0.0 - 2.0 % [facility] Work Phone: Eosinophils (Bld) [#/Vol] 0.0 10*3/uL 0.0 - 0.5 10*3/uL [facility] Work Phone: Eosinophils/100 WBC (Bld) 0.0 % Low 1.0 - 6.0 % [employer] [facility] Work Phone: Granulocytes/100 WBC (Bld) 89.5 % High 40.0 - 80.0 % [email or web address] Work Phone: Hematocrit (Bld) [Volume fraction] 36.5 % Low 40.0 - 52.0 % [email or web address] Work Phone: Hemoglobin.gastrointest inal spec 1 Ql (Stl) 12.4 g/dL Low 13.0 - 18.0 g/dL [facility] Work Phone: Interpretation and review of laboratory results Abnormal [email or web address] Work Phone: Lymphocytes (Bld) [#/Vol] 0.7 10*3/uL Low 1.0 - 4.3 10*3/uL [employer] Work Phone: Lymphocytes/100 WBC (Bld) 4.8 % Low 20.0 - 40.0 % [employer] Work Phone: MCH (RBC) [Entitic mass] 31.3 pg 26.0 - 34.0 pg [email or web address] Work Phone: MCHC (RBC) [Mass/Vol] 34.1 % 32.0 - 36.0 % [email or web address] Work Phone: MCV (RBC) [Entitic vol] 92.0 fL 80.0 - 98.0 fL [email or web address] Work Phone: Monocytes (Bld) [#/Vol] 0.8 10*3/uL 0.0 - 0.8 10*3/uL [email or web address] Work Phone: Monocytes/100 WBC (Bld) 5.4 % 2.0 - 10.0 % [email or web address] Work Phone: Platelet distribution width (Bld) [Ratio] 13.2 % 11.5 - 14.5 % [employer] Phone: Platelet mean volume (Bld) [Entitic vol] 9.0 fL 7.4 - 10.4 fL [employer] Phone: Platelets (Bld) [#/Vol] 211 10*3/uL 140 - 440 10*3/uL [email or web address] Work Phone: RBC (Bld) [#/Vol] 3.96 10*6/uL Low 4.40 - 5.9 0 10*6/uL [email or web address] Work Phone: WBC (Bld) [#/Vol] 15.1 10*3/uL High 3.6 - 10.7 10*3/uL [email or web address] Work Phone: Test Performed by [employer], [address] [place], [place] [address] [facility] [email or web address] Work Phone: Glucose,Bedsideon 03-23-2021 Glucose [Mass/Vol] 122 mg/dL High 70-100 [employer] Comment on above: Result Comment: Test performed by glucose meter. Results may be 10%-15% lower than serum/plasma values. (CLIA ID [id number]) Performed By: #### H EMDF, BMP3 #### [employer] [address] [place] [address] Glucose [Mass/Vol] 129 mg/dL High 70-100 [facility] Comment on above: Test performed by gl ucose meter. Results may be 10%-15% lower than serum/plasma values. (CLIA ID [id number]) Result Comment: Test performed by glucose meter. Results may be 10%-15% lower than serum/plasma values. (CLIA ID [id number]) Performed By: #### B GLU ####[facility] [place] [address] Glucose [Mass/Vol] 136 mg/dL High 70-100 [facility] Comment on above: Result Comment: Test performed by glucose meter. Results may be 10%-15% lower than serum/plasma values. (CLIA ID [id number]) Performed By: #### B GLU #### [facility] [address] [place] [address] Hemogram w/ Autodiffon 03-23 Abs Baso Cnt 0.0 10*3/uL Normal 0.0-0.2 [facility] Comment on above: Performed By: #### H EMDF, BMP3 #### [facility] [address] [place] [address] Abs Neutrophile Cnt 13.5 10*3/uL High 1.8-7.0 [facility] Comment on above: Performed By: #### H EMDF, BMP3 #### [facility] [address] [place] [address] Basophils/100 WBC (Bld) 0.3 % Normal 0.0-2.0 [facility] Comment on above: Performed By: #### H EMDF, BMP3 #### [facility] [address] [place] [address] Eosinophils (Bld) [#/Vol] 0.0 10*3/uL Normal 0.0-0.5 [facility] Comment on above: Performed By: #### H EMDF, BMP3 #### [facility] [address] [place] [address] Eosinophils/100 WBC (Bld) 0.0 % Low 1.0-6.0 [facility] Comment on above: Performed By: #### H EMDF, BMP3 #### [facility] [address] [place] [address] Erythrocyte distribution width (RBC) [Ratio] 13.2 % Normal 11.5-14.5 [facility] Comment on above: Performed By: #### H EMDF, BMP3 #### [facility] [address] [place] [address] Granulocytes/100 WBC (Bld) 89.5 % High 40.0-80.0 [facility] Comment on above: Performed By: #### H EMDF, BMP3 #### [facility] [address] [place] [address] Hematocrit (Bld) [Volume fraction] 36.5 % Low 40.0-52.0 [facility] Comment on above: Performed By: #### H EMDF, BMP3 #### [facility] [address] [place] [address] Hemoglobin (Bld) [Mass/Vol] 12.4 g/dL Low 13.0-18.0 [facility] Comment on above: Performed By: #### H EMDF, BMP3 #### [facility] [address] [place] [address] Lymphocytes (Bld) [#/Vol] 0.7 10*3/uL Low 1.0-4.3 [facility] Comment on above: Performed By: #### H EMDF, BMP3 #### [facility] [address] [place] [address] Lymphocytes/100 WBC (Bld) 4.8 % Low 20.0-40.0 [facility] Comment on above: Performed By: #### H EMDF, BMP3 #### [facility] [address] [place] [address] MCH (RBC) [Entitic mass] 31.3 pg Normal 26.0-34.0 [facility] Comment on above: Performed By: #### H EMDF, BMP3 #### [facility] [address] [place] [address] MCHC 34.1 % Normal 32.0-36.0 [facility] Comment on above: Performed By: #### H EMDF, BMP3 #### [facility] [address] [place] [address] MCV (RBC) [Entitic vol] 92.0 fL Normal 80.0-98.0 [facility] Comment on above: Performed By: #### H EMDF, BMP3 #### [facility] [address] [place] [address] Monocytes (Bld) [#/Vol] 0.8 10*3/uL Normal 0.0-0.8 [facility] Comment on above: Performed By: #### H EMDF, BMP3 #### [facility] [address] [place] [address] Monocytes/100 WBC (Bld) 5.4 % Normal 2.0-10.0 [facility] Comment on above: Performed By: #### H EMDF, BMP3 #### [facility] [address] [place] [address] Platelet mean volume (Bld) [Entitic vol] 9.0 fL Normal 7.4-10.4 [facility] Comment on above: Performed By: #### H EMDF, BMP3 #### [facility] [address] [place] [address] Platelets (Bld) [#/Vol] 211 10*3/uL Normal 140-440 [facility] Comment on above: Performed By: #### H EMDF, BMP3 #### [facility] [address] [place] [address] RBC (Bld) [#/Vol] 3.96 10*6/uL Low 4.40-5.90 [facility] Comment on above: Performed By: #### H EMDF, BMP3 #### [facility] [address] [place] [address] WBC (Bld) [#/Vol] 15.1 10*3/uL High 3.6-10.7 [facility] Comment on above: Performed By: #### H EMDF, BMP3 #### [facility] [address] [place] [address] No Panel Informationon 03-23 Interpretation and review of laboratory results Abnormal [facility] Work Phone: Test Performed by [facility], [address] LAB [facility] Work Phone: POCT Glucoseon 03-23-2021 Glucose [Mass/Vol] 166 mg/dL High 70 - 100 mg/dL [facility] Comment on above: Test performed by gl ucose meter. Results may be 10%-15% lower than serum/plasma values. (CLIA ID [id number]) Interpretation and review of laboratory results Abnormal [facility] Test Performed by [facility], [address] LAB [facility] Glucose [Mass/Vol] 122 mg/dL High 70 - 100 mg/dL [facility] Work Phone: Comment on above: Test performed by gl ucose meter. Results may be 10%-15% lower than serum/plasma values. (CLIA ID [id number]) Glucose [Mass/Vol] 136 mg/dL High 70 - 100 mg/dL [facility] Comment on above: Test performed by gl ucose meter. Results may be 10%-15% lower than serum/plasma values. (CLIA ID [id number]) Interpretation and review of laboratory results Abnormal [facility] Test Performed by [facility], [address] LAB [facility] CBC Auto Differentialon 03-02 Absolute Baso # 0.0 10*3/uL 0.0 - 0.2 10*3/uL [facility] Absolute Neut # 12.3 10*3/uL High 1.8 [...] 12.4 g/dL Low 13.0 - 18.0 g/dL [facility] Interpretation and review of laboratory results [...] 13.3 10*3/uL High 3.6 - 10.7 10*3/uL [facility] Test Performed by [facility], [address], [place], [place] [address] [facility] LAB [facility] Glucose,Bedsideon 03-22-2021 Glucose [Mass/Vol] 134 mg/dL High 70-100 [facility] Comment on above: Result Comment: Test performed by glucose meter. Results may be 10%-15% lower than serum/plasma values. (CLIA ID [id number]) Performed By: #### H EMDF, BMP3 #### [facility] [address] [place] [address] Glucose [Mass/Vol] 190 mg/dL High 70-100 [facility] Comment on above: Result Comment: Test performed by glucose meter. Results may be 10%-15% lower than serum/plasma values. (CLIA ID [id number]) Performed By: #### B GLU #### [facility] [address] [place] [address] Glucose [Mass/Vol] 200 mg/dL High 70-100 [facility] Comment on above: Result Comment: Test performed by glucose meter. Results may be 10%-15% lower than serum/plasma values. (CLIA ID [id number]) Performed By: #### B GLU #### [facility] [address] [place] [address] Glucose [Mass/Vol] 181 mg/dL High 70-100 [facility] Comment on above: Result Comment: Test performed by glucose meter. Results may be 10%-15% lower than serum/plasma values. (CLIA ID [id number]) Performed By: #### B GLU #### [facility] [address] [place] [address] Glucose [Mass/Vol] 186 mg/dL High 70-100 [facility] Comment on above: Result Comment: Test performed by glucose meter. Results may be 10%-15% lower than serum/plasma values. (CLIA ID [id number]) Performed By: #### B GLU #### [facility] [address] [place] [address] Hemoglobin A1Con 03-22-2021 Glucose [Mass/Vol] 108 mg/dL Normal [facility] Comment on above: Performed By: #### B GLU #### [facility] [address] [place] [address] HbA1c (Bld) [Mass fraction] 5.4 % Normal [facility] Comment on above: Result Comment: Norm al less than 5.7% Prediabetes 5.7% to 6.4% Diabetes 6.5% or higher --HgbA1C levels may not be accurate in patients who have renal disease, received recent blood transfusions, are anemic, or who have dyshemoglobinemia. Performed By: #### B GLU #### [facility] [address] [place] [address] HbA1c (Bld) [Mass fraction] 5.4 % [facility] Comment on above: Normal less than 5.7 % Prediabetes 5.7% to 6.4% Diabetes 6.5% or higher --HgbA1C levels may not be accurate in patients who have renal disease, received recent blood transfusions, are anemic, or who have dyshemoglobinemia. Magnesium [Mass/Vol] 108 mg/dL [facility] Test Performed by [facility], [address] [place] [address] [facility] LAB [facility] Hemogram w/ Autodiffon 03-22 Abs Baso Cnt 0.0 10*3/uL Normal 0.0-0.2 [facility] Comment on above: Performed By: #### B GLU #### [facility] [address] [place] [address] Abs Neutrophile Cnt 12.3 10*3/uL High 1.8-7.0 [facility] Comment on above: Performed By: #### B GLU #### [facility] [address] [place] [address] Basophils/100 WBC (Bld) 0.2 % Normal 0.0-2.0 [facility] Comment on above: Performed By: #### B GLU #### [facility] [address] [place] [address] Eosinophils (Bld) [#/Vol] 0.0 10*3/uL Normal 0.0-0.5 [facility] Comment on above: Performed By: #### B GLU #### [facility] [address] [place] [address] Eosinophils/100 WBC (Bld) 0.0 % Low 1.0-6.0 [facility] Comment on above: Performed By: #### B GLU #### [facility] [address] [place] [address] Erythrocyte distribution width (RBC) [Ratio] 12.8 % Normal 11.5-14.5 [facility] Comment on above: Performed By: #### B GLU #### [facility] [address] [place] [address] Granulocytes/100 WBC (Bld) 92.7 % High 40.0-80.0 [facility] Comment on above: Performed By: #### B GLU #### [facility] [address] [place] [address] Hematocrit (Bld) [Volume fraction] 35.9 % Low 40.0-52.0 [facility] Comment on above: Performed By: #### B GLU #### [facility] [address] [place] [address] Hemoglobin (Bld) [Mass/Vol] 12.4 g/dL Low 13.0-18.0 [facility] Comment on above: Performed By: #### B GLU #### [facility] [address] [place] [address] Lymphocytes (Bld) [#/Vol] 0.5 10*3/uL Low 1.0-4.3 [facility] Comment on above: Performed By: #### B GLU #### [facility] [address] [place] [address] Lymphocytes/100 WBC (Bld) 3.6 % Low 20.0-40.0 [facility] Comment on above: Performed By: #### B GLU #### [facility] [address] [place] [address] MCH (RBC) [Entitic mass] 31.6 pg Normal 26.0-34.0 [facility] Comment on above: Performed By: #### B GLU #### [facility] [address] [place] [address] MCHC 34.6 % Normal 32.0-36.0 [facility] Comment on above: Performed By: #### B GLU #### [facility] [address] [place] [address] MCV (RBC) [Entitic vol] 91.2 fL Normal 80.0-98.0 [facility] Comment on above: Performed By: #### B GLU #### [facility] [address] [place] [address] Monocytes (Bld) [#/Vol] 0.5 10*3/uL Normal 0.0-0.8 [facility] Comment on above: Performed By: #### B GLU #### [facility] [address] [place] [address] Monocytes/100 WBC (Bld) 3.5 % Normal 2.0-10.0 [facility] Comment on above: Performed By: #### B GLU #### [facility] [address] [place] [address] Platelet mean volume (Bld) [Entitic vol] 9.5 fL Normal 7.4-10.4 [facility] Comment on above: Performed By: #### B GLU #### [facility] [address] [place] [address] Platelets (Bld) [#/Vol] 158 10*3/uL Normal 140-440 [facility] Comment on above: Performed By: #### B GLU #### [facility] [address] [place] [address] RBC (Bld) [#/Vol] 3.93 10*6/uL Low 4.40-5.90 [facility] Comment on above: Performed By: #### B GLU #### [facility] [address] [place] [address] WBC (Bld) [#/Vol] 13.3 10*3/uL High 3.6-10.7 [facility] Comment on above: Performed By: #### B GLU #### [facility] [address] [place] [address] MRSA by PCRon 03-22-2021 Staph Aureus Sc No S. aureus detected. Negative nasal MRSA PCR has a high negative predictive value for MRSA pneumonia. Consider stopping vancomycin if no other clinical indication. Contact Antimicrobial Stewardship for further recommendations. The analytical performance characteristics of this assay have been determined by [employer] in accordance with CLIA regulations. The modifications have not been cleared or approved by the U. S. Food and Drug Administration; however, the FDA has determined that such clearance or approval is not necessary. [facility] Test [facility] by [facility], [address] [place] [address], [place] [address] [facility] POCT GlucoseOrdered By: Same er Morgan on 03-22-2021 Glucose [Mass/Vol] 134 mg/dL High 70 - 100 mg/dL [facility] Work Phone: Comment on above: Test performed by gl ucose meter. Results may be 10%-15% lower than serum/plasma values. (CLIA ID [id number]) Interpretation and review of laboratory results Abnormal [facility] Work Phone: [facility] Work Phone: POCT Glucoseon 03-22-2021 Test Performed by [facility], [address] LAB Glucose [Mass/Vol] 190 mg/dL High 70 - 100 mg/dL [facility] Comment on above: Test performed by gl ucose meter. Results may be 10%-15% lower than serum/plasma values. (CLIA ID [id number]) Interpretation and review of laboratory results Abnormal [facility] Test Performed by [facility], [address], [address] LAB [facility] Glucose [Mass/Vol] 200 mg/dL High 70 - 100 mg/dL [facility] Comment on above: Test performed by gl ucose meter. Results may be 10%-15% lower than serum/plasma values. (CLIA ID [id number]) Interpretation and review of laboratory results Abnormal [facility] Test Performed by [facility], [address], [address] LAB [facility] Glucose [Mass/Vol] 181 mg/dL High 70 - 100 mg/dL [facility] Comment on above: Test performed by gl ucose meter. Results may be 10%-15% lower than serum/plasma values. (CLIA ID [id number]) Interpretation and review of laboratory results Abnormal [facility] Test Performed by [facility], [address], [address] LAB [facility] Glucose [Mass/Vol] 186 mg/dL High 70 - 100 mg/dL [facility] Comment on above: Test performed by gl ucose meter. Results may be 10%-15% lower than serum/plasma values. (CLIA ID [id number]) Interpretation and review of laboratory results Abnormal [facility] Test Performed by [facility], [address], [place], [place] [address] [facility] Procalcitoninon 03-22-2021 Procalcitonin 0.09 ng/mL Normal 0.00-0.09 [facility] Comment on above: Performed By: #### H EMDF, BMP3 #### [facility] [address] [place] [address] Interpretation See Below [facility] Comment on above: PCT <0.50 = Low risk of severe sepsis and/or septic shock. PCT >2.00 = High risk of severe sepsis and/or septic shock. Procalcitonin 0.09 ng/mL 0.00 - 0.09 ng/mL [facility] Test Performed by [employer], [address] [place] [address] [facility] Staph Aureus Complete Nasalo n 03-22-2021 Staph Aureus Complete Nasal Staph Screen --> Status: F No S. aureus detected. Negative nasal MRSA PCR has a high negative predictive value for MRSA pneumonia. Consider stopping vancomycin if no other clinical indication. Contact Antimicrobial Stewardship for further recommendations. The analytical performance characteristics of this assay have been determined by [employer] in accordance with CLIA regulations. The modifications [...] of this assay have been determined by [employer] in accordance with CLIA regulations. The modifications have not been cleared or approved by the U. S. Food and Drug Administration; however, the FDA has determined that such clearance or approval is not necessary. Normal [facility] Comment on above: Performed By: #### S APCR ####[facility] [id number] [place] [address] Vancomycin Troughon 03-22-20 21 Vancomycin Trough 8.1 ug/mL Low 15.0-20.0 [facility] Comment on above: Result Comment: . Performed By: #### B GLU #### [facility] [address] [place] [address] Vancomycin, Troughon 021 Interpretation and review of laboratory results Abnormal [facility] Vancomycin Tr 8.1 ug/mL Low 15.0 - 20.0 ug/mL [facility] Comment on above: . Test Performed by [facility], [address] [place] [address] [facility] Basic Metabolic Panelon 03-02 Anion gap [Moles/Vol] 7 mmol/L Normal 3-13 [facility] Comment on above: Performed By: #### H EMDF BMP3 #### [facility] [address] [place] [address] Calcium [Mass/Vol] 8.1 mg/dL Low 8.4-10.4 [facility] Comment on above: Performed By: #### H EMDF, BMP3 #### [facility] [address] [place] [address] CO2 [Moles/Vol] 26 mmol/L Normal 22-30 [facility] Comment on above: Performed By: #### H EMDF, BMP3 #### [facility] [address] [place] [address] Glucose [Mass/Vol] 156 mg/dL High 70-100 [facility] Comment on above: Performed By: #### H EMDF, BMP3 #### [facility] [address] [place] [address] Urea nitrogen [Mass/Vol] 19 mg/dL High 7-17 [facility] Comment on above: Performed By: #### H EMDF, BMP3 #### [facility] [address] [place] [address] Creatinine [Mass/Vol] 0.53 mg/dL Normal 0.52-1.25 [facility] Comment on above: Performed By: #### H EMDF, BMP3 #### [facility] [address] [place] [address] eGFR OTHER > 90.0 Normal >60 [facility] Comment on above: Result Comment: KDIG [...] Performed By: #### H MAYKEL BMP3 #### [facility] [address] [place] [address] GFR/1.73 sq M.predicted among blacks MDRD (S/P/Bld) [Vol rate/Area] mL/min/{1.73_m2} Normal >60 [facility] Comment on above: Performed By: #### H MAYKEL BMP3 #### [facility] [address] [place] [address] Chloride [Moles/Vol] 103 mmol/L Normal 98-107 [facility] Comment on above: Performed By: #### H MAYKEL BMP3 #### [facility] [address] [place] [address] Potassium [Moles/Vol] 3.4 mmol/L Low 3.5-5.1 [facility] Comment on above: Performed By: #### H MAYKEL BMP3 #### [facility] [address] [place] [address] Sodium [Moles/Vol] 136 mmol/L Normal 135-145 [facility] Comment on above: Performed By: #### H MAYKEL BMP3 #### [facility] [address] [place] [address] Basic Metabolic Panel w/ Ref marciano to MGon 03-21-2021 Anion gap [Moles/Vol] 7 mmol/L 3 - 13 mmol/L [facility] Work Phone: Calcium [Mass/Vol] 8.1 mg/dL Low 8.4 - 10. 4 mg/dL [facility] Work Phone: Chloride [Moles/Vol] 103 mmol/L 98 - 10 7 mmol/L [facility] Work Phone: CO2 [Moles/Vol] 26 mmol/L 22 - 30 mmol/L [facility] Work Phone: Creatinine [Mass/Vol] 0.53 mg/dL 0.52 - 1.25 mg/dL [facility] Work Phone: EGFR IF NonAfrican Latvian >90.0 >60 mL/min [facility] Work Phone: Comment [...] results Abnormal [facility] Work Phone: Potassium [Moles/Vol] 3.4 mmol/L Low 3.5 - 5.1 mmol/L [facility] Work Phone: Sodium [Moles/Vol] 136 mmol/L 135 - 145 mmol/L [email or web address] Work Phone: Urea nitrogen (BldV) [Mass/Vol] 19 mg/dL High 7 - 17 mg/dL [facility] Work Phone: Test Performed by [employer] [facility], [address] [place], [place] [address] [facility] Work Phone: CBCon 03-21-2021 Hematocrit (Bld) [Volume fraction] 35.4 % Low 40.0 - 52.0 % [facility] Work Phone: Hemoglobin.gastrointest inal spec 1 Ql (Stl) 11.9 g/dL Low 13.0 - 18.0 g/dL [facility] Work Phone: Interpretation and review of laboratory results Abnormal [facility] Phone: MCH (RBC) [Entitic mass] 30.5 pg 26.0 - 34.[address] [facility] Work Phone: MCHC (RBC) [Mass/Vol] 33.7 % 32.0 - 36.0 % [email or web address] Work Phone: MCV (RBC) [Entitic vol] 90.6 fL 80.0 - 98.[address] [facility] Work Phone: Platelet distribution width (Bld) [Ratio] 13.1 % 11.5 - 14.5 % [facility] Phone: Platelet mean volume (Bld) [Entitic vol] 9.1 fL 7.4 - 10.4 fL [email or web address] Work Phone: Platelets (Bld) [#/Vol] 136 10*3/uL Low 140 - 440 10*3/uL [email or web address] Work Phone: RBC (Bld) [#/Vol] 3.91 10*6/uL Low 4.40 - 5.9 0 10*6/uL [facility] Work Phone: WBC (Bld) [#/Vol] 7.1 10*3/uL 3.6 - 10.7 10*3/uL [facility] Work Phone: Test Performed by [facility], [address] [place] [address] [facility] Work Phone: Glucose,Bedsideon 03-21-2021 Glucose [Mass/Vol] 131 mg/dL High 70-100 [facility] Comment on above: Result Comment: Test performed by glucose meter. Results may be 10%-15% lower than serum/plasma values. (CLIA ID [id number]) Performed By: #### B GLU #### [facility] [address] [place] [address] Glucose [Mass/Vol] 230 mg/dL High 70-100 [facility] Comment on above: Result Comment: Test performed by glucose meter. Results may be 10%-15% lower than serum/plasma values. (CLIA ID [id number]) Performed By: #### B GLU #### [facility] [address] [place] [address] Hemogramon 03-21-2021 Erythrocyte distribution width (RBC) [Ratio] 13.1 % Normal 11.5-14.5 [facility] Comment on above: Performed By: #### H MAYKEL BMP3 #### [facility] [address] [place] [address] Hematocrit (Bld) [Volume fraction] 35.4 % Low 40.0-52.0 [facility] Comment on above: Performed By: #### H MAYKEL BMP3 #### [facility] [address] [place] [address] Hemoglobin (Bld) [Mass/Vol] 11.9 g/dL Low 13.0-18.0 [facility] Comment on above: Performed By: #### H ALCIRAF BMP3 #### [facility] [address] [place] [address] MCH (RBC) [Entitic mass] 30.5 pg Normal 26.0-34.0 [facility] Comment on above: Performed By: #### H MAYKEL BMP3 #### [facility] [address] [place] [address] MCHC 33.7 % Normal 32.0-36.0 [facility] Comment on above: Performed By: #### H MAYKEL BMP3 #### [facility] [address] [place] [address] MCV (RBC) [Entitic vol] 90.6 fL Normal 80.0-98.0 [facility] Comment on above: Performed By: #### H MAYKEL BMP3 #### [facility] [address] [place] [address] Platelet mean volume (Bld) [Entitic vol] 9.1 fL Normal 7.4-10.4 [facility] Comment on above: Performed By: #### H MAYKEL BMP3 #### [facility] [address] [place] [address] Platelets (Bld) [#/Vol] 136 10*3/uL Low 140-440 [facility] Comment on above: Performed By: #### H MAYKEL BMP3 #### [facility] [address] [place] [address] RBC (Bld) [#/Vol] 3.91 10*6/uL Low 4.40-5.90 [facility] Comment on above: Performed By: #### H MAYKEL BMP3 #### [facility] [address] [place] [address] WBC (Bld) [#/Vol] 7.1 10*3/uL Normal 3.6-10.7 [facility] Comment on above: Performed By: #### H MAYKEL BMP3 #### [facility] [employer] [facility] [address] [place] [address] Magnesiumon 03-21-2021 Magnesium [Mass/Vol] 2.2 mg/dL Normal 1.6-2.3 [facility] Comment on above: Performed By: #### H MAYKEL BMP3 #### [facility] [employer] [facility] [address] [place] [address] Magnesium [Mass/Vol] 2.2 mg/dL 1.6 - 2 .3 mg/dL [facility] Work Phone: Test Performed by [facility], [address] LAB [facility] Work Phone: POCT Glucoseon 03-21-2021 Glucose [Mass/Vol] 131 mg/dL High 70 - 100 mg/dL [facility] Comment on above: Test performed by gl ucose meter. Results may be 10%-15% lower than serum/plasma values. (CLIA ID [id number]) Interpretation and review of laboratory results Abnormal [facility] Test Performed by [facility], [facility] [address] LAB [facility] Glucose [Mass/Vol] 230 mg/dL High 70 - 100 mg/dL [facility] Comment on above: Test performed by gl ucose meter. Results may be 10%-15% lower than serum/plasma values. (CLIA ID [id number]) Interpretation and review of laboratory results Abnormal [facility] Test Performed by [facility], [facility] [address] [facility] Procalcitoninon 03-21-2021 Interpretation See Below Normal [facility] Comment on above: Result Comment: PCT <0.50 = Low risk of severe sepsis and/or septic shock. PCT >2.00 = High risk of severe sepsis and/or septic shock. Performed By: #### H MAYKEL BMP3 #### [facility] [address] [place] [address] Basic Metabolic Panelon 2 Calcium [Mass/Vol] 8.4 mg/dL Normal 8.4-10.4 [facility] Comment on above: Performed By: #### H MAYKEL BMP3 #### [facility] [address] [place] [address] Anion gap [Moles/Vol] 6 mmol/L Normal 3-13 [facility] Comment on above: Performed By: #### H MAYKEL BMP3 #### [facility] [address] [place] [address] CO2 [Moles/Vol] 27 mmol/L Normal 22-30 [facility] Comment on above: Performed By: #### H MAYKEL BMP3 #### [facility] [address] [place] [address] Glucose [Mass/Vol] 106 mg/dL High 70-100 [facility] Comment on above: Performed By: #### H MAYKEL BMP3 #### [facility] [address] [place] [address] Urea nitrogen [Mass/Vol] 14 mg/dL Normal 7-17 [facility] Comment on above: Performed By: #### H MAYKEL BMP3 #### [facility] [address] [place] [address] Creatinine [Mass/Vol] 0.51 mg/dL Low 0.52-1.25 [facility] Comment on above: Performed By: #### H MAYKEL BMP3 #### [facility] [address] [place] [address] eGFR OTHER > 90.0 Normal >60 [facility] Comment on above: Result Comment: KDIG [...] Performed By: #### H MAYKEL BMP3 #### [facility] [address] [place] [address] GFR/1.73 sq M.predicted among blacks MDRD (S/P/Bld) [Vol rate/Area] mL/min/{1.73_m2} Normal >60 [facility] Comment on above: Performed By: #### H MAYKEL BMP3 #### [facility] [address] [place] [address] Chloride [Moles/Vol] 104 mmol/L Normal 98-107 [facility] Comment on above: Performed By: #### H EMDF, BMP3 #### [facility] [address] [place] [address] Potassium [Moles/Vol] 3.9 mmol/L Normal 3.5-5.1 [facility] Comment on above: Performed By: #### H EMDF, BMP3 #### [facility] [employer] [facility] [address] [place] [address] Sodium [Moles/Vol] 137 mmol/L Normal 135-145 [facility] Comment on above: Performed By: #### H EMDF, BMP3 #### [facility] [address] [place] [address] Anion gap [Moles/Vol] 6 mmol/L 3 - 13 mmol/L [facility] Work Phone: Calcium [Mass/Vol] 8.4 mg/dL 8.4 - 10. 4 mg/dL [facility] Work Phone: Chloride [Moles/Vol] 104 mmol/L 98 - 10 7 mmol/L [facility] Work Phone: CO2 [Moles/Vol] 27 mmol/L 22 - 30 mmol/L [facility] Work Phone: Creatinine [Mass/Vol] 0.51 mg/dL Low 0.52 - 1.25 mg/dL [facility] Work Phone: EGFR IF NonAfrican Latvian >90.0 >60 mL/min [facility] Work Phone: Comment on above: KDIGO [...] rate/Area] mL/min/{1.73_m2} >60 mL/min [facility] Work Phone: [phone] Glucose [Mass/Vol] 106 mg/dL High 70 - 100 mg/dL [facility] Work Phone: [phone] Interpretation and review of laboratory results Abnormal [facility] Work Phone: [phone] Potassium [Moles/Vol] 3.9 mmol/L 3.5 - 5.1 mmol/L [facility] Work Phone: [phone] Sodium [Moles/Vol] 137 mmol/L 135 - 145 mmol/L [facility] Work Phone: [phone] Urea nitrogen (BldV) [Mass/Vol] 14 mg/dL 7 - 17 mg/dL [facility] Work Phone: [phone] Test Performed by [facility] [place], [address] [place], [place] [address] [place] [address] [facility] Work Phone: [phone] C-Reactive Proteinon 021 CRP [Mass/Vol] 228.1 mg/L High 0.0-9.9 [facility] Comment on above: Result Comment: . Performed By: #### H EMD, BMP3 #### [facility] [address] [place] [address] CRP [Mass/Vol] 228.1 mg/L High 0.0 - 9.9 mg/L [facility] Work Phone: [phone] Comment on above: . Interpretation and review of laboratory results Abnormal [facility] Work Phone: [phone] Test Performed by [facility] [place], [address] [place], [place] [address] [place] [address] [facility] Work Phone: [phone] COVID and Resp PCR Panelon 1 1-20-2021 SARS-CoV-2 (COVID-19) RNA SHIRLEY+probe Ql (Unsp spec) COVID and Resp PCR Panel --> Status: F POSITIVE: Respiratory Syncytial Virus DETECTED. _ Expected Result: Not Detected [employer] Upper Respiratory Pathogens PCR Panel can detect the following targets: SARS-CoV-2, Adenovirus, Coronavirus 229E, Coronavirus HKU1, Coronavirus NL63, Coronavirus OC43, Human Metapneumovirus, Human Rhinovirus/Enteroviru s, Influenza A, Influenza B, Parainfluenza Virus 1, Parainfluenza Virus 2, Parainfluenza Virus 3, Parainfluenza Virus 4, Respiratory Syncytial Virus, Bordetella pertussis, Bordetella parapertussis, Chlamydia pneumoniae, Mycoplasma pneumoniae. Method: Real-time PCR. _ Expected Result: Not Detected [employer] Upper Respiratory Pathogens PCR Panel can detect the following targets: SARS-CoV-2, Adenovirus, Coronavirus 229E, Coronavirus HKU1, Coronavirus NL63, Coronavirus OC43, Human Metapneumovirus, Human Rhinovirus/Enteroviru s, Influenza A, Influenza B, Parainfluenza Virus 1, Parainfluenza Virus 2, Parainfluenza Virus 3, Parainfluenza Virus 4, Respiratory Syncytial Virus, Bordetella pertussis, Bordetella parapertussis, Chlamydia pneumoniae, Mycoplasma pneumoniae. Method: Real-time PCR. 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1955 Requested By: BRADY DESAI Order Number: [id number] Reading MD: Fei Menjivar Measurements Intervals [place] Rate: 102 P: 71 ND: 172 QRS: -30 QRSD: 156 T: 85 QT: 412 QTc: 537 Interpretive Statements SINUS TACHYCARDIA LEFT BUNDLE BRANCH BLOCK Electronically Signed On 03-20-2021 22:47:41 EST by Fei BARNETT CARDIOLOGY Fei Menjivar MD - 03/20/2021 [facility] Test Date: 2021-03-19 Pat Name: KATHYA HOOPER Department: 1 Room: 465 Gender: M 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 Work Phone: EKG 12 Lead - Chest PainOrde red By: Fei Menjivar on 03-20-2021 [email or web address] Work Phone: Lactic Acidon 03-20-2021 Lactate [Moles/Vol] 0.7 mmol/L Normal 0.7-2.0 [facility] Comment on above: Performed By: #### H EMDF, BMP3 #### [facility] [address] [place] [address] Lactic Acid, Plasmaon 2020 Lactate [Moles/Vol] 0.7 mmol/L 0.7 - 2. 0 mmol/L [email or web address] Work Phone: Test Performed by [facility] [place], [address] [place], [place] [address] [facility] LAB [facility] Work Phone: PROCALCITONINon 03-20-2021 Interpretation See Below [email or web address] Work Phone: Comment on above: PCT <0.50 = Low risk of severe sepsis and/or septic shock. PCT >2.00 = High risk of severe sepsis and/or septic shock. Interpretation and review of laboratory results Abnormal [facility] Work Phone: Test Performed by [facility], [address] [place] [address] [facility] LAB [facility] Work Phone: Procalcitoninon 03-20-2021 Procalcitonin 0.14 ng/mL High 0.00-0.09 [facility] Work Phone: Comment on above: Performed By: #### H MAYKEL BMP3 #### [facility] [address] [facility] [address] Interpretation See Below Normal [facility] Comment on above: Result Comment: PCT <0.50 = Low risk of severe sepsis and/or septic shock. PCT >2.00 = High risk of severe sepsis and/or septic shock. Performed By: #### H MAYKEL BMP3 #### [facility] [address] [place] [address] Troponinon 03-20-2021 Interpretation and review of laboratory results Abnormal [facility] Work Phone: Troponin I.cardiac [Mass/Vol] 0.037 ng/mL High 0.000 - 0.034 ng/mL [facility] Work Phone: Comment on above: . Test Performed by [facility], [facility] [address] [place], [place] [address] [place] [address] LAB [facility] Work Phone: Troponin Ion 03-20-2021 Troponin I.cardiac [Mass/Vol] 0.037 ng/mL High 0.000-0.034 [facility] Comment on above: Result Comment: . Performed By: #### H MAYKEL BMP3 #### [facility] [address] [place] [address] Arterial Blood Gas Respirato yasmine 03-19-2021 Base Excess 1.2 mmol/L Normal -3.0-3.0 [facility] Comment on above: Performed By: #### B GLU #### [facility] [address] [place] [address] CO2 [Moles/Vol] 25.6 mmol/L Normal 23.0-27.[address] [facility] Comment on above: Performed By: #### B GLU #### [facility] [address] [place] [address] FIO2 5 Normal [facility] Comment on above: Result Comment: Perf ormed by CLIA ID: [id number] [facility] [place] Performed By: #### B GLU #### [facility] [address] [place] [address] HCO3 (Bld) [Moles/Vol] 24.6 mmol/L Normal 21.0-25.0 [facility] Comment on above: Performed By: #### B GLU #### [facility] [address] [place] [address] Oxygen (Bld) [Partial pressure] 56.7 mm[Hg] Low 80.0-100.0 [facility] Comment on above: Performed By: #### B GLU #### [facility] [address] [place] [address] Oxygen saturation in Blood 91.0 % Low 95.0-100.0 [facility] Comment on above: Performed By: #### B GLU #### [facility] [address] [place] [address] pCO2 33.9 mm[Hg] Low 35.0-45.0 [facility] Comment on above: Performed By: #### B GLU #### [facility] [address] [place] [address] pH 7.468 High 7.350-7.450 [facility] Comment on above: Performed By: #### B GLU #### [facility] [address] [place] [address] Basic Metabolic Panelon 11-1 Anion gap [Moles/Vol] 9 mmol/L Normal 3-13 [facility] Comment on above: Performed By: #### B MP3, TROPN ####[facility] [place] [address] Calcium [Mass/Vol] 8.5 mg/dL Normal 8.4-10.4 [facility] Comment on above: Performed By: #### B MP3, TROPN ####[facility] [place] [address] CO2 [Moles/Vol] 26 mmol/L Normal 22-30 [facility] Comment on above: Performed By: #### B MP3, TROPN ####[address] [place] [address] Creatinine [Mass/Vol] 0.48 mg/dL Low 0.52-1.25 [facility] Comment on above: Performed By: #### Anamika LOPEZ3REBEKA ####[address] [place] [address] eGFR OTHER > 90.0 Normal >60 [facility] Comment on above: Result Comment: KDIG [...] renal tubular creatinine secretion. Performed By: #### REBEKA JO ####[address] [place] [address] GFR/1.73 sq M.predicted among blacks MDRD (S/P/Bld) [Vol rate/Area] mL/min/{1.73_m2} Normal >60 [facility] Comment on above: Performed By: #### Anamika LOPEZ3 TROPN ####[address] [place] [address] Glucose [Mass/Vol] 132 mg/dL High 70-100 [facility] Comment on above: Performed By: #### Anamika LOPEZ3SERGION ####[address] [place] [address] Urea nitrogen [Mass/Vol] 16 mg/dL Normal 7-17 [facility] Comment on above: Performed By: #### Anamika LOPEZ3 TROPN ####[address] [place] [address] Chloride [Moles/Vol] 102 mmol/L Normal 98-107 [facility] Comment on above: Performed By: #### B MP3, TROPN ####[facility] [place] [address] Potassium [Moles/Vol] 4.1 mmol/L Normal 3.5-5.1 [facility] Comment on above: Performed By: #### B MP3, TROPN ####[facility] [place] [address] Sodium [Moles/Vol] 137 mmol/L Normal 135-145 [facility] Comment on above: Performed By: #### B MP3, TROPN ####[facility] [place] [address] Anion gap [Moles/Vol] 9 mmol/L 3 - 13 mmol/L [facility] Calcium [Mass/Vol] 8.5 mg/dL 8.4 - 10. 4 mg/dL [facility] Chloride [Moles/Vol] 102 mmol/L 98 - 10 7 mmol/L [facility] CO2 [Moles/Vol] 26 mmol/L 22 - 30 mmol/L [facility] Creatinine [Mass/Vol] 0.48 mg/dL Low 0.52 - 1.25 mg/dL [facility] EGFR IF NonAfrican Latvian >90.0 >60 mL/min [facility] Comment on above: KDIGO guidelines pro vide [...] [Mass/Vol] 16 mg/dL 7 - 17 mg/dL [facility] Test Performed by [facility], [address] [facility] CBC Auto Differentialon 03-01 Absolute Baso # [...] [facility] COVID-19, Flu A/B, and RSV C ombo 03-19-2021 Influenza A by PCR Not detected [facility] Influenza B by PCR Not detected [facility] Interpretation and review of laboratory results Abnormal [facility] RSV PCR DETECTED Expected Result: Not Detected _ Method: Real-time, RT-PCR This assay was developed by [employer] and distributed under an Emergency Use Authorization (EUA) granted by the FDA for the qualitative detection of nucleic acids from SARS-CoV-2, Influenza A, Influenza B, and Respiratory Syncytial Virus. Provider and patient fact sheets can be found at https://www.fda.gov/m edia/663144/download and https://www.fda.gov/m edia/974490/download. Abnormal [facility] SARS-CoV-2 (COVID-19) RNA SHIRLEY+probe Ql (Unsp spec) Not detected [facility] Test Performed by [facility], [address] [facility] Chest Portableon 03-19-20 21 CR Chest Portable Patient Name: KATHYA HOOPER Diagnostic Radiology ACCESSION EXAM DATE/TIME PROCEDURE ORDERING PROVIDER [id number] 03/19/2021 17:10 EST CR Chest Portable [id number] BRADY WILKINS CPT code 84973 Reason For Exam (CR Chest Portable) hypoxia [...] Transcribed Date and Time: 03/19/2021 5:22 Normal [facility] ED Provider Noteon ED Provider Note Emergency Department Encounter [facility] Patient: Kathya Hooper : 1955 Date of Evaluation: 03/19/2021 ED Provider: Brady Desai, Chief Complaint Chief Complaint Patient presents with ? Shortness of Breath [place] I wore appropriate PPE for the entirety of this encounter. Does this patient come from an ECF, SNF, Rehab, Residential or other Congregate setting: yes (If yes [...] otherwise acutely negative except as in the [place]. Past History Past Medical History: Diagnosis Date [...] and Family: Not on file ? Attends [employer] Services: Not on file ? Active Member [...] TABLET T (more content not included)... Normal [facility] Hemogram w/ Autodiffon 03-19 Abs Baso Cnt 0.1 10*3/uL Normal 0.0-0.2 [facility] Comment on above: Performed By: #### B GLU #### [facility] [address] [place] [address] Abs Neutrophile Cnt 7.2 10*3/uL High 1.8-7.0 [facility] Comment on above: Performed By: #### B GLU #### [facility] [address] [place] [address] Basophils/100 WBC (Bld) 0.6 % Normal 0.0-2.0 [facility] Comment on above: Performed By: #### B GLU #### [facility] [address] [place] [address] Eosinophils (Bld) [#/Vol] 0.0 10*3/uL Normal 0.0-0.5 [facility] Comment on above: Performed By: #### B GLU #### [facility] [address] [place] [address] Eosinophils/100 WBC (Bld) 0.2 % Low 1.0-6.0 [facility] Comment on above: Performed By: #### B GLU #### [facility] [address] [place] [address] Erythrocyte distribution width (RBC) [Ratio] 13.0 % Normal 11.5-14.5 [facility] Comment on above: Performed By: #### B GLU #### [facility] [address] [place] [address] Granulocytes/100 WBC (Bld) 79.0 % Normal 40.0-80.0 [facility] Comment on above: Performed By: #### B GLU #### [facility] [address] [place] [address] Hematocrit (Bld) [Volume fraction] 38.5 % Low 40.0-52.0 [facility] Comment on above: Performed By: #### B GLU #### [facility] [address] [place] [address] Hemoglobin (Bld) [Mass/Vol] 13.1 g/dL Normal 13.0-18.0 [facility] Comment on above: Performed By: #### B GLU #### [facility] [address] [place] [address] Lymphocytes (Bld) [#/Vol] 1.0 10*3/uL Normal 1.0-4.3 [facility] Comment on above: Performed By: #### B GLU #### [facility] [address] [place] [address] Lymphocytes/100 WBC (Bld) 10.8 % Low 20.0-40.0 [facility] Comment on above: Performed By: #### B GLU #### [facility] [address] [place] [address] MCH (RBC) [Entitic mass] 30.9 pg Normal 26.0-34.0 [facility] Comment on above: Performed By: #### B GLU #### [facility] [address] [place] [address] MCHC 33.9 % Normal 32.0-36.0 [facility] Comment on above: Performed By: #### B GLU #### [facility] [address] [place] [address] MCV (RBC) [Entitic vol] 91.1 fL Normal 80.0-98.0 [facility] Comment on above: Performed By: #### B GLU #### [place] [address] [place] [address] Monocytes (Bld) [#/Vol] 0.9 10*3/uL High 0.0-0.8 [facility] Comment on above: Performed By: #### B GLU #### [place] [address] [place] [address] Monocytes/100 WBC (Bld) 9.4 % Normal 2.0-10.0 [facility] Comment on above: Performed By: #### B GLU #### [facility] [address] [place] [address] Platelet mean volume (Bld) [Entitic vol] 9.9 fL Normal 7.4-10.4 [facility] Comment on above: Performed By: #### B GLU #### [place] [address] [place] [address] Platelets (Bld) [#/Vol] 163 10*3/uL Normal 140-440 [facility] Comment on above: Performed By: #### B GLU #### [facility] [address] [place] [address] RBC (Bld) [#/Vol] 4.23 10*6/uL Low 4.40-5.90 [facility] Comment on above: Performed By: #### B GLU #### [place] [address] [place] [address] WBC (Bld) [#/Vol] 9.1 10*3/uL Normal 3.6-10.7 [facility] Comment on above: Performed By: #### B GLU #### [facility] [address] [place] [address] Lactic Acidon 03-19-2021 Lactate [Moles/Vol] 2.3 mmol/L Critically high 0.7-2.0 [facility] Comment on above: Performed By: #### L ACT3 ####[facility] [place] [address] Lactic Acid, Plasmaon 2020 Lactate [Moles/Vol] 2.3 mmol/L Critically high 0.7 - 2.0 mmol/L [facility] No Panel Informationon 03-19 Interpretation and review of laboratory results Abnormal [facility] Test Performed by [place] [address] [place] [address] [place] [address] [facility] RBC MORPHOLOGYon 03-19-2021 Poikilocytes Slight [facility] RBC (Bld) [#/Vol] ABNORMAL [facility] Tear Drop Cells Slight [facility] RBC Morphologyon 03-19-2021 Ovalocytes Slight Normal [facility] Comment on above: Performed By: #### B GLU #### [facility] [address] [place] [address] Poikilocytosis Slight [facility] Comment on above: Performed By: #### B GLU #### [facility] [address] [place] [address] Polychromasia Slight Normal [facility] Comment on above: Performed By: #### B GLU #### [place] [address] [place] [address] RBC morphology finding Nom (Bld) ABNORMAL Normal [facility] Comment on above: Performed By: #### B GLU #### [facility] [address] [place] [address] Tear Drop Forms Slight Normal [facility] Comment on above: Performed By: #### B GLU #### [facility] [address] [place] [address] Respiratory Panel, Molecular , with COVID-19 (Restricted: peds pts or suitable admitted adults)on 03-19-2021 Interpretation and review of laboratory results Abnormal [facility] Respiratory Panel Molecular, with COVID POSITIVE: Respiratory Syncytial Virus DETECTED. _ Expected Result: Not Detected [employer] Upper Respiratory Pathogens PCR Panel can detect the following targets: SARS-CoV-2, Adenovirus, Coronavirus 229E, Coronavirus HKU1, Coronavirus NL63, Coronavirus OC43, Human Metapneumovirus, Human Rhinovirus/Enteroviru s, Influenza A, Influenza B, Parainfluenza Virus 1, Parainfluenza Virus 2, Parainfluenza Virus 3, Parainfluenza Virus 4, Respiratory Syncytial Virus, Bordetella pertussis, Bordetella parapertussis, Chlamydia pneumoniae, Mycoplasma pneumoniae. Method: Real-time PCR. Abnormal [facility] Test Performed by [facility], [address] [place] [address] LAB [facility] SARS-CoV-2, Flu A/B and RSVo n 03-19-2021 SARS-CoV-2 (COVID-19) RNA SHIRLEY+probe Ql (Unsp spec) SARS-CoV-2 --> Status: F Not Detected. Flu A PCR --> Status: F Not Detected. Flu B PCR --> Status: F Not Detected. RSV PCR --> Status: F DETECTED Expected Result: Not Detected _ Method: Real-time, RT-PCR This assay was developed by [employer] and distributed under an Emergency Use Authorization (EUA) granted by the FDA for the qualitative detection of nucleic acids from SARS-CoV-2, Influenza A, Influenza B, and Respiratory Syncytial Virus. Provider and patient fact sheets can be found at https://www.fda.gov/m edia/172253/download and https://www.fda.gov/m edia/512349/download. Expected Result: Not Detected _ Method: Real-time, RT-PCR This assay was developed by [employer] and distributed under an Emergency Use Authorization (EUA) granted by the FDA for the qualitative detection of nucleic acids from SARS-CoV-2, Influenza A, Influenza B, and Respiratory Syncytial Virus. Provider and patient fact sheets can be found at https://www.fda.gov/m edia/029974/download and https://www.fda.gov/m edia/159413/download. Abnormal [facility] Comment on above: Performed By: #### C VFLR #### [facility] [address] [place] [address] , [address] Troponinon 03-19-2021 Troponin I.cardiac [Mass/Vol] 0.017 ng/mL 0.000 - 0.034 ng/mL [facility] Comment on above: . Test Performed by [facility], [address], [place], [place] [address] [facility] LAB [facility] Troponin Ion 03-19-2021 Troponin I.cardiac [Mass/Vol] 0.017 ng/mL Normal 0.000-0.034 [facility] Comment on above: Result Comment: . Performed By: #### B MP3, TROPN ####[facility] [place] [address] XR CHEST PORTABLEon 03-19-20 Patient Name: KATHYA HOOPER Diagnostic Radiology ACCESSION EXAM DATE/TIME PROCEDURE ORDERING PROVIDER [id number] 03/19/2021 17:10 EST CR Chest Portable [id number] -BRADY DESAI CPT code 01469 Reason For Exam (CR Chest Portable) hypoxia [...] J Transcribed Date and Time: 03/19/2021 5:22 NORMA QUIROGA Keshawn Ruiz MD - 03/19/2021 Patient Name: KATHYA HOOPER Diagnostic Radiology ACCESSION EXAM DATE/TIME PROCEDURE ORDERING PROVIDER [id number] 03/19/2021 17:10 EST CR Chest Portable [id number] -BRADY DESAI CPT code 82111 Reason For Exam (CR Chest Portable) hypoxia [...] Transcribed Date and Time: 03/19/2021 5:22 [facility] Work Phone: Radiology Study observation (narrative) [facility] Work Phone: XR CHEST PORTABLEOrdered By: Keshawn Simpson on 03-19-2021 [facility] Work Phone: Basic Metabolic Panelon 03-01 Calcium [Mass/Vol] 8.4 mg/dL Normal 8.4-10.4 [facility] Comment on above: Performed By: #### H MAYKEL BMP3 #### [facility] [address] [place] [address] Glucose [Mass/Vol] 110 mg/dL High 70-100 [facility] Comment on above: Performed By: #### H MAYKEL BMP3 #### [facility] [address] [place] [address] Anion gap [Moles/Vol] 7 mmol/L Normal 3-13 [facility] Comment on above: Performed By: #### H MAYKEL BMP3 #### [facility] [address] [place] [address] CO2 [Moles/Vol] 26 mmol/L Normal 22-30 [facility] Comment on above: Performed By: #### H MAYKEL BMP3 #### [facility] [address] [place] [address] Creatinine [Mass/Vol] 0.54 mg/dL Normal 0.52-1.25 [facility] Comment on above: Performed By: #### H MAYKEL BMP3 #### [facility] [address] [place] [address] eGFR OTHER > 90.0 Normal >60 [facility] Comment on above: Result Comment: KDIG [...] Performed By: #### H MAYKEL BMP3 #### [facility] [address] [place] [address] GFR/1.73 sq M.predicted among blacks MDRD (S/P/Bld) [Vol rate/Area] mL/min/{1.73_m2} Normal >60 [facility] Comment on above: Performed By: #### H MAYKEL BMP3 #### [facility] [address] [place] [address] Urea nitrogen [Mass/Vol] 18 mg/dL High 7-17 [facility] Comment on above: Performed By: #### H EMDF, BMP3 #### [facility] [address] [place] [address] Potassium [Moles/Vol] 3.9 mmol/L Normal 3.5-5.1 [facility] Comment on above: Performed By: #### H EMDF, BMP3 #### [facility] [address] [place] [address] Chloride [Moles/Vol] 104 mmol/L Normal 98-107 [facility] Comment on above: Performed By: #### H MAYKEL BMP3 #### [facility] [address] [place] [address] Sodium [Moles/Vol] 137 mmol/L Normal 135-145 [facility] Comment on above: Performed By: #### H MITALI BRAR #### [facility] [address] [place] [address] Anion gap [Moles/Vol] 7 mmol/L 3 - 13 mmol/L [facility] Calcium [Mass/Vol] 8.4 mg/dL 8.4 - 10. 4 mg/dL [facility] Chloride [Moles/Vol] 104 mmol/L 98 - 10 7 mmol/L [facility] CO2 [Moles/Vol] 26 mmol/L 22 - 30 mmol/L [facility] Creatinine [Mass/Vol] 0.54 mg/dL 0.52 - 1.25 mg/dL [facility] EGFR IF NonAfrican Latvian >90.0 >60 mL/min [facility] Comment on above: KDIGO guidelines pro vide [...] 110 mg/dL High 70 - 100 mg/dL [facility] Interpretation and review of laboratory results Abnormal [facility] Potassium [Moles/Vol] 3.9 mmol/L 3.5 - 5.1 mmol/L [facility] Sodium [Moles/Vol] 137 mmol/L 135 - 145 mmol/L [facility] Urea nitrogen (BldV) [Mass/Vol] 18 mg/dL High 7 - 17 mg/dL [facility] Brain Natriuretic Peptideon 03-18-2021 Interpretation and review of laboratory results Abnormal [facility] Natriuretic peptide B (Bld) [Mass/Vol] 710 pg/mL High 0 - 125 pg/mL [facility] Test Performed by [facility], [address] [place], [place], [place] [address] [facility] CBC Auto Differentialon 03-01 Absolute Baso # [...] (Stl) 13.6 g/dL 13.0 - 18.0 g/dL [facility] Interpretation and review of laboratory results [...] - 10.7 10*3/uL [facility] Test Performed by [facility], [facility] [address] [facility] COVID-19, Flu A/B, and RSV C ombo 03-18-2021 Influenza A by PCR Not detected [facility] Influenza B by PCR Not detected [facility] Interpretation and review of laboratory results Abnormal [facility] RSV PCR DETECTED Expected Result: Not Detected _ Method: Real-time, RT-PCR This assay was developed by [employer] and distributed under an Emergency Use Authorization (EUA) granted by the FDA for the qualitative detection of nucleic acids from SARS-CoV-2, Influenza A, Influenza B, and Respiratory Syncytial Virus. Provider and patient fact sheets can be found at https://www.fda.gov/m edia/333621/download and https://www.fda.gov/m edia/863718/download. Abnormal [facility] SARS-CoV-2 (COVID-19) RNA SHIRLEY+probe Ql (Unsp spec) Not detected [facility] Test Performed by [facility], [facility] [address] [facility] CR Chest Portableon 03-18-20 21 CR Chest Portable Patient Name: KATHYA HOOPER Diagnostic Radiology ACCESSION EXAM DATE/TIME PROCEDURE ORDERING PROVIDER [id number] 03/18/2021 15:30 EST CR Chest Portable [id number] -BOO CASTRO CPT code 61502 Reason For Exam (CR Chest Portable) sob, [...] Transcribed Date and Time: 03/18/2021 3:35 Normal [facility] CTA Chest W WO (PE study)on 03-18-2021 Patient Name: KATHYA HOOPER Computed Tomography ACCESSION EXAM DATE/TIME PROCEDURE ORDERING PROVIDER [id number] 03/18/2021 16:27 EST CTA Chest w/ + w/o [id number] -RAYMOND, Contrast BOO CPT code 30519 Q9967 Reason For Exam (CTA Chest w/ + w/o Contrast) pulmonary embolus Report CTA chest with and without contrast History: chest pain Protocol: 1 mm images after IV contrast, 3D rendering performed by va on a separate workstation No evidence of aortic dissection or pulmonary embolism. Patchy scattered bilateral lung infiltrates. Minimal left pleural effusion. No lymphadenopathy. IMPRESSION: Patchy scattered bilateral lung infiltrates. Minimal left pleural effusion. Report Dictated on --- Final --- Dictating Physician: MD MICHAELS MALAY Signed Date and Time: 03/18/2021 4:35 pm Signed by: MD MICHAELS MALAY Transcribed Date and Time: 03/18/2021 4:36 [facility] Malcolm Michaels MD - 03/18/2021 Patient Name: KATHYA HOOPER Computed Tomography ACCESSION EXAM DATE/TIME PROCEDURE ORDERING PROVIDER [id number] 03/18/2021 16:27 EST CTA Chest w/ + w/o [id number] -RAYMOND, Contrast BOO CPT code 55738 Q9967 Reason For Exam (CTA Chest w/ [...] Transcribed Date and Time: 03/18/2021 4:36 [facility] Work Phone: Radiology Study observation (narrative) [facility] Work Phone: CTA Chest W WO (PE study)Ord ered By: Malcolm Michaels on 03-18-2021 [facility] Work Phone: CTA Chest w/ + w/o Contrasto n 03-18-2021 CTA Chest w/ + w/o Contrast Patient Name: KATHYA HOOPER Computed Tomography ACCESSION EXAM DATE/TIME PROCEDURE ORDERING PROVIDER [id number] 03/18/2021 16:27 EST CTA Chest w/ + w/o [id number] [facility], Contrast BOO CPT code 82992 Q9967 Reason For Exam (CTA Chest w/ [...] Transcribed Date and Time: 03/18/2021 4:36 Normal [facility] CTA HEAD NECK W WO CONTRASTo n 03-18-2021 [facility]: [id number] Computed Tomography ACCESSION EXAM DATE/TIME PROCEDURE ORDERING PROVIDER [id number] 03/18/2021 16:26 EST CTA Head/Neck w/ + w/o [id number] -alyson CASTRO CPT code 69761 38685 Q9967 Reason For Exam (CTA Head/Neck w/ + w/o contrast) AMS, dysphasia and ?aphasia possibly since yesterday- very poor historian from long term w/ unclear prior deficits - here w/ [...] OSAMA Transcribed Date and Time: 03/18/2021 4:52 [facility] Greyson Rai MD - 03/18/2021 Patient Name: KATHYA HOOPER Computed Tomography ACCESSION EXAM DATE/TIME PROCEDURE ORDERING PROVIDER [id number] 03/18/2021 16:26 EST CTA Head/Neck w/ + w/o [id number] -alyson CASTRO CPT code 54270 93930 Q9967 Reason For Exam (CTA Head/Neck w/ + w/o contrast) AMS, dysphasia and ?aphasia possibly since yesterday- very poor historian from long term w/ unclear prior deficits - here w/ [...] + w/o contrast [facility]: [id number] Computed Tomography ACCESSION EXAM DATE/TIME PROCEDURE ORDERING PROVIDER [id number] 03/18/2021 16:26 EST CTA Head/Neck w/ + w/o [id number] alyson ARCHIBALD CPT code 55506 16391 Q9967 Reason For Exam (CTA Head/Neck w/ + w/o contrast) AMS, dysphasia and ?aphasia possibly since yesterday- very poor historian from long term w/ unclear prior deficits - here w/ [...] HICKEY Transcribed Date and Time: 03/18/2021 4:52 Normal [facility] ED Provider Noteon ED Provider Note [facility] ED EMERGENCY DEPARTMENT ENCOUNTER Pt Name: Kathya [...] patient come from an ECF, SNF, Rehab, Residential or other Congregate setting: no (If yes to above patient needs a Covid-19 test) HPI Kathya Hooper is a 66 y.o. 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 Normal [facility] Hemogram w/ Autodiffon 03-18 Abs Baso Cnt 0.0 10*3/uL Normal 0.0-0.2 [facility] Comment on above: Performed By: #### H EMDF, BMP3 #### [facility] [address] [place] [address] Abs Neutrophile Cnt 7.3 10*3/uL High 1.8-7.0 [facility] Comment on above: Performed By: #### H EMDF, BMP3 #### [facility] [address] [place] [address] Basophils/100 WBC (Bld) 0.5 % Normal 0.0-2.0 [facility] Comment on above: Performed By: #### H EMDF, BMP3 #### [facility] [address] [place] [address] Eosinophils (Bld) [#/Vol] 0.0 10*3/uL Normal 0.0-0.5 [facility] Comment on above: Performed By: #### H EMDF, BMP3 #### [facility] [address] [place] [address] Eosinophils/100 WBC (Bld) 0.1 % Low 1.0-6.0 [facility] Comment on above: Performed By: #### H EMDF, BMP3 #### [facility] [address] [place] [address] Erythrocyte distribution width (RBC) [Ratio] 12.9 % Normal 11.5-14.5 [facility] Comment on above: Performed By: #### H EMDF, BMP3 #### [facility] [address] [place] [address] Granulocytes/100 WBC (Bld) 82.8 % High 40.0-80.0 [facility] Comment on above: Performed By: #### H EMDF, BMP3 #### [facility] [address] [place] [address] Hematocrit (Bld) [Volume fraction] 38.3 % Low 40.0-52.0 [facility] Comment on above: Performed By: #### H EMDF, BMP3 #### [facility] [address] [place] [address] Hemoglobin (Bld) [Mass/Vol] 13.6 g/dL Normal 13.0-18.0 [facility] Comment on above: Performed By: #### H EMDF, BMP3 #### [facility] [address] [place] [address] Lymphocytes (Bld) [#/Vol] 0.7 10*3/uL Low 1.0-4.3 [facility] Comment on above: Performed By: #### H EMDF, BMP3 #### [facility] [address] [place] [address] Lymphocytes/100 WBC (Bld) 7.6 % Low 20.0-40.0 [facility] Comment on above: Performed By: #### H EMDF, BMP3 #### [facility] [address] [place] [address] MCH (RBC) [Entitic mass] 32.0 pg Normal 26.0-34.0 [facility] Comment on above: Performed By: #### H EMDF, BMP3 #### [facility] [address] [place] [address] MCHC 35.4 % Normal 32.0-36.0 [facility] Comment on above: Performed By: #### H EMDF, BMP3 #### [facility] [address] [place] [address] MCV (RBC) [Entitic vol] 90.2 fL Normal 80.0-98.0 [facility] Comment on above: Performed By: #### H EMDF, BMP3 #### [facility] [address] [place] [address] Monocytes (Bld) [#/Vol] 0.8 10*3/uL Normal 0.0-0.8 [facility] Comment on above: Performed By: #### H EMDF, BMP3 #### [facility] [address] [place] [address] Monocytes/100 WBC (Bld) 9.0 % Normal 2.0-10.0 [facility] Comment on above: Performed By: #### H EMDF, BMP3 #### [facility] [address] [place] [address] Platelet mean volume (Bld) [Entitic vol] 9.8 fL Normal 7.4-10.4 [facility] Comment on above: Performed By: #### H EMDMaurice BMP3 #### [facility] [address] [place] [address] Platelets (Bld) [#/Vol] 129 10*3/uL Low 140-440 [facility] Comment on above: Performed By: #### H MAYKEL BMP3 #### [facility] [address] [place] [address] RBC (Bld) [#/Vol] 4.24 10*6/uL Low 4.40-5.90 [facility] Comment on above: Performed By: #### H MAYKEL BMP3 #### [facility] [address] [place] [address] WBC (Bld) [#/Vol] 8.8 10*3/uL Normal 3.6-10.7 [facility] Comment on above: Performed By: #### H MAYKEL BMP3 #### [facility] [address] [place] [address] MAGNESIUMon 03-18-2021 Magnesium [Mass/Vol] 2.0 mg/dL 1.6 - 2 .3 mg/dL [facility] Magnesiumon 03-18-2021 Magnesium [Mass/Vol] 2.0 mg/dL Normal 1.6-2.3 [facility] Comment on above: Performed By: #### H MAYKEL BMP3 #### [facility] [address] [place] [address] NT pro BNPon 03-18-2021 Natriuretic peptide B (Bld) [Mass/Vol] 710 pg/mL High 0-125 [facility] Comment on above: Performed By: #### H EMDF BMP3 #### [facility] [address] [place] [address] No Panel Informationon 03-18 Test Performed by [facility], [address] [place] [address] [facility] PROTIME/INR & PTTon 03-18-20 21 aPTT Coag (Bld) [Time] 30.7 s High 20.0 - 30.5 s [facility] Comment on above: NOTE: The therapeuti c time for Heparin anticoagulation, based on Xa activity inhibition, is an APTT of 46-80 seconds. INR Coag (Bld) [Relative time] 1.1 {INR} [facility] Comment on above: Recommended Anticoag ulant Therapy: [...] and review of laboratory results Abnormal [facility] PT Coag (PPP) [Time] 11.4 s 9.0 - 12.0 s [facility] Comment on above: . Test Performed by [facility], [address], [place], [place] [id number] [place] [address] LAB [facility] Protime AND APTTon 1 aPTT Coag (Bld) [Time] 30.7 s High 20.0-30.5 [facility] Comment on above: Result Comment: NOTE : The therapeutic time for Heparin anticoagulation, based on Xa activity inhibition, is an APTT of 46-80 seconds. Performed By: #### H KORIN BRAR3 #### [facility] [address] [place] [address] INR 1.1 Normal 0.9-1.1 [facility] Comment on above: Result Comment: Yefri [...] prevent Myocardial Infarction Performed By: #### H MAYKEL, BMP3 #### [facility] [address] [place] [address] PT Coag (PPP) [Time] 11.4 s Normal 9.0-12.0 [facility] Comment on above: Result Comment: . Performed By: #### H EMDF, BMP3 #### [facility] [address] [place] [address] SARS-CoV-2, Flu A/B and RSVo n 03-18-2021 SARS-CoV-2 (COVID-19) RNA SHIRLEY+probe Ql (Unsp spec) SARS-CoV-2 --> Status: F Not Detected. Flu A PCR --> Status: F Not Detected. Flu B PCR --> Status: F Not Detected. RSV PCR --> Status: F DETECTED Expected Result: Not Detected _ Method: Real-time, RT-PCR This assay was developed by [employer] and distributed under an Emergency Use Authorization (EUA) granted by the FDA for the qualitative detection of nucleic acids from SARS-CoV-2, Influenza A, Influenza B, and Respiratory Syncytial Virus. Provider and patient fact sheets can be found at https://www.fda.gov/m edia/826780/download and https://www.fda.gov/ edia/174211/download. Expected Result: Not Detected _ Method: Real-time, RT-PCR This assay was developed by [employer] and distributed under an Emergency Use Authorization (EUA) granted by the FDA for the qualitative detection of nucleic acids from SARS-CoV-2, Influenza A, Influenza B, and Respiratory Syncytial Virus. Provider and patient fact sheets can be found at https://www.fda.gov/m edia/097223/download and https://www.fda.gov/m edia/855861/download. Abnormal [facility] Comment on above: Performed By: #### C VFLR #### [facility] [address] [place] [address] , [address] TS GELon 03-18-2021 TS GEL ABO Group: O Rh, Gel: POS Antibody Screen Gel: NEG Normal [facility] Comment on above: Performed By: #### T SGL #### [facility] TYPE AND SCREENon 03-18-[address] [facility] Positive [facility] Test Performed by [facility], [address] [place] [address] [facility] XR CHEST PORTABLEon 03-18-20 [facility]: [id number] Radiology ACCESSION EXAM DATE/TIME PROCEDURE ORDERING PROVIDER [id number] 03/18/2021 15:30 EST CR Chest Portable [id number] [facility] CPT code 20072 Reason For Exam (CR Chest Portable) sob, [...] KRIKOR Transcribed Date and Time: 03/18/2021 3:35 [facility] Alejandra Munoz MD - 03/18/2021 Patient Name: KATHYA HOOPER Diagnostic Radiology ACCESSION EXAM DATE/TIME PROCEDURE ORDERING PROVIDER [id number] 03/18/2021 15:30 EST CR Chest Portable [id number] [place] [address] CPT code 86870 Reason For Exam (CR Chest Portable) sob, [...] [facility] Work Phone: Radiology Study observation (narrative) [email or web address] Work Phone: XR CHEST PORTABLEOrdered By: Alejandra Munoz on 03-18-2021 [email or web address] Work Phone: ED Provider Noteon 1 ED Provider Note - Attestation signed by Edwin Montejo MD at 10/31/2020 7:09 AM Emergency Medicine Attending Note This patient was seen and treated independently by the bathroom tiling professional. I was present and available in the emergency department when this patient was treated. Vero Montejo MD [facility] ED eMERGENCY dEPARTMENT eNCOUnter Pt Name: [...] Diagnosis Date ? TREVER (acute kidney injury) ([facility]) ? Alcohol abuse 07/08/2018 ? Anxiety ? Depression ? Fall 06/2018 ? Schizophrenia ([facility]) SURGICALHISTORY Past Surgical History: Procedure Laterality Date [...] Strain: ? (more content not included)... Normal [facility] [place] GI TUBE EVALUATION W CONT RASTOrdered By: Helen [place] on 10-30-2020 [facility]: [id number] Fluoroscopy ACCESSION EXAM DATE/TIME PROCEDURE ORDERING PROVIDER [id number] 10/30/2020 15:07 EDT RF Intro Long GI Tube w/ KRISTA [place], HELEN Rojas CPT code 82043 Reason For Exam (RF Intro Long GI [...] Phone: Ja[facility], [facility] Incoming Radiology Results From [facility] - 10/30/2020 4:07 PM EDT Patient Name: KATHYA HOOPER Fluoroscopy ACCESSION EXAM DATE/TIME PROCEDURE ORDERING PROVIDER [id number] 10/30/2020 15:07 EDT RF Intro Long GI Tube w/ KRISTA TOLEDO AMY L Fluoro CPT code 74539 Reason For Exam (RF Intro Long GI [...] Transcribed Date and Time: 10/30/2020 4:06 [facility] Work Phone: [facility] Work Phone: RF Intro Long GI Tube w/ Flu oroon 10-30-2020 RF Intro Long GI Tube w/ Fluoro Patient Name: KATHYA HOOPER Fluoroscopy ACCESSION EXAM DATE/TIME PROCEDURE ORDERING PROVIDER [id number] 10/30/2020 15:07 EDT RF Intro Long GI Tube w/ KRISTA TOLEDO, HELEN [place] Fluoro CPT code 23912 Reason For Exam (RF Intro Long GI [...] J Transcribed Date and Time: 10/30/2020 4:06 [facility] ED Provider Noteon ED Provider [facility] ENCOUNTER Pt Name: Kathya [...] Gatherings with Friends and Family: ? Attends Hoahaoism Services: ? Active Member of Clubs or [...] Soft, non-distended (more content not included)... Normal [facility] FL GI TUBE EVALUATION W CONT RASTOrdered By: Elizabeth Moura on 09-22-2020 Patient Name: KATHYA HOOPER Fluoroscopy ACCESSION EXAM DATE/TIME PROCEDURE ORDERING PROVIDER [id number] 09/22/2020 04:09 EDT RF Intro Long GI Tube w/ 5816 -ELIZABETH MOURA CPT code 82909 Reason For Exam (RF Intro Long GI [...] JEFFREY Transcribed Date and Time: 09/22/2020 5:11 [facility] Work Phone: [facility] - 09/22/2020 5:11 AM EDT Patient Name: KATHYA HOOPER Fluoroscopy ACCESSION EXAM DATE/TIME PROCEDURE ORDERING PROVIDER [id number] 09/22/2020 04:09 EDT RF Intro Long GI Tube w/ 58ELIZABETH LU Fluoro CPT code 63223 Reason For Exam (RF Intro Long GI [...] JEFFREY Transcribed Date and Time: 09/22/2020 5:11 [facility] Work Phone: [facility] Work Phone: RF Intro Long GI Tube w/ Flu oroon 09-22-2020 RF Intro Long GI Tube w/ Fluoro Patient Name: KATHYA HOOPER Fluoroscopy ACCESSION EXAM DATE/TIME PROCEDURE ORDERING PROVIDER [id number] 09/22/2020 04:09 EDT RF Intro Long GI Tube w/ 58ELIZABETH LU CPT code 85235 Reason For Exam (RF Intro Long GI [...] JEFFREY Transcribed Date and Time: 09/22/2020 5:11 [facility] ED Provider Noteon ED Provider Note [facility] ED EMERGENCY DEPARTMENT ENCOUNTER Pt Name: Kathya Hooper Birthdate 1955 Date of evaluation: 06/26/2020 Provider: Abelardo Rios, DO CHIEF COMPLAINT Chief Complaint Patient presents with [...] otherwise acutely negative except as in the [place]. PAST MEDICAL HISTORY Past Medical History: Diagnosis [...] (AQUAPHOR) ointment Apply topically as needed. Balsam Froilan-Hollis Oil (VENELEX) OINT ointment Apply topically every [...] file Gets together: Not on file Attends baptist service: Not on file Active member of [...] for level (more content not included)... Normal [facility] [place] [facility] Patient Name: KATHYA HOOPER Fluoroscopy ACCESSION EXAM DATE/TIME PROCEDURE ORDERING PROVIDER [id number] 06/26/2020 20:20 EST RF Intro Long GI Tube w/ [id number] -ABELARDO RIOS CPT code 17094 Reason For Exam (RF Intro Long GI [...] B Transcribed Date and Time: 06/26/2020 9:16 [facility] Work Phone: [facility], [facility] Incoming Radiology Results From [facility] - 06/26/2020 9:16 PM EST Patient Name: KATHYA HOOPER Fluoroscopy ACCESSION EXAM DATE/TIME PROCEDURE ORDERING PROVIDER [id number] 06/26/2020 20:20 EST RF Intro Long GI Tube w/ [id number] -ABELARDO RIOS CPT code 83097 Reason For Exam (RF Intro Long GI [...] B Transcribed Date and Time: 06/26/2020 9:16 [facility] Work Phone: Feeding Tubeon 06-26-2020 Abelardo Rios [...] of procedure: Tolerated well, no immediate complications [facility] Work Phone: RF Intro Long GI Tube w/ Flu oroon 06-26-2020 RF Intro Long GI Tube w/ Fluoro Patient Name: KATHYA HOOPER Fluoroscopy ACCESSION EXAM DATE/TIME PROCEDURE ORDERING PROVIDER [id number] 06/26/2020 20:20 EST RF Intro Long GI Tube w/ [id number] -ABELARDO RIOS CPT code 68109 Reason For Exam (RF Intro Long GI [...] Transcribed Date and Time: 06/26/2020 9:16 Normal [facility] Clinical Summary: HMSPatient IDon 05-22-2019 WOP [facility] Work Phone: Office Visit: New - 1st visi t with practice, Rm: 2on 05-22-2019 NEGATED: Highlighted rowCT scan history of the right lower extremity on 05/16/2019 at [facility] Work Phone: NEGATED: Highlighted rowTobacco smoking status NHIS current someday smoker [facility] Work Phone: NEGATED: Highlighted rowxray history of the pelvis with hip on 05/11/2019 at [facility] of the pelvis on 05/13/2019 at [facility] Work Phone: CT LOWER EXTREMITY RIGHT WO CONTRASTOrdered By: Elizabeth Moura on 05-16-2019 Patient Name: KATHYA HOOPER ---CT--- Exam Date/Time 05/16/2019 21:10:[address] Low Ext w/o Contrast Right Ordering Physician ELIZABETH BARKER Accession Number [id number] CPT4 Codes 84632 () Reason For Exam right hip pain, [...] Phone: [facility], [facility] Incoming Radiology Results From [facility] - 05/16/2019 9:24 PM EST Patient Name: KATHYA HOOPER ---CT--- Exam Date/Time 05/16/2019 21:10:[address] Low Ext w/o Contrast Right Ordering Physician ELIZABETH BARKER Accession Number [id number] CPT4 Codes 74420 () Reason For Exam right hip pain, [...] RISA Transcribed Date and Time: 05/16/2019 9:24 [facility] Work Phone: Differential,Body Fluidson 0 09-27-2018 Other Cells 46 % Normal [facility] Comment on above: Result Comment: Bloo dy specimen with reactive mesothelial cells and chronic inflammation with occasional hemophagocytosis. quarter lining smoother Performed By: #### H EMDF, PT, BMP3M, PHOS3, MG3, CK3 #### [facility] [address] [place], [place] #### VD25H #### [facility] [address] [place] [address] CULTURE AND STAIN - FLUIDon 09-25-2018 CULTURE AND STAIN - FLUID CULTURE & STAIN - FLUID --> Status: F No growth at 5 days. STAIN GRAM --> Status: F Moderate polymorphonuclear cells/lpf. Moderate mononuclear cells/lpf No organisms seen. Cytocentrifugation performed. Moderate mononuclear cells/lpf No organisms seen. Cytocentrifugation performed. Normal [facility] Comment on above: Performed By: #### H EMDF, PT, BMP3M, PHOS3, MG3, CK3 #### [facility] [address] [place] [address] #### VD25H #### [facility] [address] [place] [address] Cell Count,Body Fluidon 05- Nucleated Cells 2391 {cells}/uL Normal [facility] Comment on above: Performed By: #### H EMDF, PT, BMP3M, PHOS3, MG3, CK3 #### [facility] [address] [place], [place] #### VD25H #### [facility] [address] [place] [address] RBC [place] [address] {RBC}/uL Normal [facility] Comment on above: Performed By: #### H EMDF, PT, BMP3M, PHOS3, MG3, CK3 #### [address] [place], [place] #### VD25H #### [facility] [address] [place] [address] Fluid Type Thoracentesis Normal [facility] Comment on above: Performed By: #### H EMDF, PT, BMP3M, PHOS3, MG3, CK3 #### [address] [place], [place] #### VD25H #### [facility] [address] [place] [address] Differential,Body Fluidson 0 09-25-2018 Lymphocytes/100 WBC (Bld) 28 % Normal [facility] Comment on above: Performed By: #### H EMDF, PT, BMP3M, PHOS3, MG3, CK3 #### [address] [place], [place] #### VD25H #### [facility] [address] [place] [address] Monocytes/100 WBC (Bld) 1 % Normal [facility] Comment on above: Performed By: #### H EMDF, PT, BMP3M, PHOS3, MG3, CK3 #### [address] [place], [place] #### VD25H #### [facility] [address] [place] [address] Neutrophils/100 WBC (Bld) 25 % Normal [facility] Comment on above: Performed By: #### H EMDF, PT, BMP3M, PHOS3, MG3, CK3 #### [address] [place], [place] #### VD25H #### [facility] [address] [place] [address] Cells Counted for Diff 100 Normal [facility] Comment on above: Performed By: #### H EMDF, PT, BMP3M, PHOS3, MG3, CK3 #### [facility] [address] [place], [place] #### VD25H #### [facility] [address] [place] [address] LDH, Body Fluidon 09-25-2018 LDH, Body Fluid 174 U/L Normal No Range [facility] Comment on above: Performed By: #### H EMDF, PT, BMP3M, PHOS3, MG3, CK3 #### [address] [address] [place], [place] #### VD25H #### [facility] [address] [place] [address] Protein, Total Body Fluidon 09-25-2018 Protein,Total-Body Fld 3.4 g/dL Normal No Range [facility] Comment on above: Performed By: #### H EMDF, PT, BMP3M, PHOS3, MG3, CK3 #### [address] [address] [place] #### VD25H #### [facility] [address] [place] [address] US Thora-Aspir Pleura w/ Evelin geon 09-25-2018 US Thora-Aspir Pleura w/ Image Patient Name: KATHYA HOOPER Ultrasound Exam Date/Time 09/25/2018 13:23:41 EDT Exam US Thora-Aspir Pleura w/ Image Ordering Physician SALO DAVIS Accession Number [id number] CPT4 Codes 66799 () Reason For Exam pleural effusion Report [...] JENNIFER Transcribed Date and Time: 09/25/2018 3:07 Normal [facility] CULTURE MYCOBACTERIAon 09-03 CULTURE MYCOBACTERIA CULTURE MYCOBACTERI A --> Status: F No acid-fast bacilli isolated after 6 weeks incubation. [facility] Comment on above: Performed By: #### H EMDF, PT, BMP3M, PHOS3, MG3, CK3 #### [facility] [address] [place] [address] #### VD25H #### [facility] [address] [place] [address] CULTURE URINEon 08-23-2018 CULTURE URINE CULTURE URINE --> Status: F No growth (<1,000 CFU/ml). [facility] Comment on above: Order Comment: Speci men Source Comment:Urine, clean catch Performed By: #### H EMDF, PT, BMP3M, PHOS3, MG3, CK3 #### [facility] [address] [place] [address] #### VD25H #### [facility] [address] [place] [address] CR Chest Portableon 08-23-19 19 CR Chest Portable Patient Name: KATHYA HOOPER Diagnostic Radiology Exam Date/Time 08/22/2018 07:07:07 EDT Exam CR Chest Portable Ordering Physician [id number] SEPULVEDAY HIRAM Accession Number [id number] CPT4 Codes 73902 () Reason For Exam dyspnea Report Portable [...] Transcribed Date and Time: 08/22/2018 7:31 Normal [facility] Glucose,Bedsideon 08-22-2018 Glucose mass conc 127 mg/dL High 70-100 [facility] Comment on above: Result Comment: Test performed by glucose meter. Results may be 10%-15% lower than serum/plasma values. (CLIA ID [id number]) Performed By: #### H EMDF, PT, BMP3M, PHOS3, MG3, CK3 #### [facility] [address] [place] [address] #### VD25H #### [facility] [address] [place] [address] Urinalysis,Macroon 9 Appearance Nom (U) clear Normal Clear [facility] Comment on above: Performed By: #### H EMDF, PT, BMP3M, PHOS3, MG3, CK3 #### [facility] [address] [place], [place] #### VD25H #### [facility] [address] [place] [address] Bilirubin,Ur Negative Normal Negative [facility] Comment on above: Performed By: #### H EMDF, PT, BMP3M, PHOS3, MG3, CK3 #### [address] [place], [place] #### VD25H #### [facility] [address] [place] [address] Color Nom (U) dk.yel Normal Lt. Yellow [facility] Comment on above: Performed By: #### H EMDF, PT, BMP3M, PHOS3, MG3, CK3 #### [address] #### VD25H #### [facility] [address] [place] [address] Glucose Ql (U) NORM Normal Negative [facility] Comment on above: Performed By: #### H EMDF, PT, BMP3M, PHOS3, MG3, CK3 #### [address] #### VD25H #### [facility] [address] [place] [address] Ketone,Urine Negative Normal Negative [facility] Comment on above: Performed By: #### H EMDF, PT, BMP3M, PHOS3, MG3, CK3 #### [address] #### VD25H #### [facility] [address] [place] [address] Nitrite Ql (U) Negative Normal Negative [facility] Comment on above: Performed By: #### H EMDF, PT, BMP3M, PHOS3, MG3, CK3 #### [address] #### VD25H #### [facility] [address] [place] [address] Occult Blood,Ur Negative Normal Negative [facility] Comment on above: Performed By: #### H EMDF, PT, BMP3M, PHOS3, MG3, CK3 #### [address] [place], [place] #### VD25H #### [facility] [address] [place] [address] pH (U) 8.0 Normal 5.0-8.0 [facility] Comment on above: Performed By: #### H EMDF, PT, BMP3M, PHOS3, MG3, CK3 #### [address] [place], [place] #### VD25H #### [facility] [address] [place] [address] Protein mass conc (U) Negative Normal Negative [facility] Comment on above: Performed By: #### H EMDF, PT, BMP3M, PHOS3, MG3, CK3 #### [address] [place], [place] #### VD25H #### [place] [address] [place] [address] Specific [place],Urine 1.015 Normal 1.005-1.030 [facility] Comment on above: Performed By: #### H EMDF, PT, BMP3M, PHOS3, MG3, CK3 #### [address] [place], [place] #### VD25H #### [place] [address] [place] [address] Urobilinogen Qn (U) 1 mg/dL Normal 0-1 [facility] Comment on above: Performed By: #### H EMDF, PT, BMP3M, PHOS3, MG3, CK3 #### [address] [place], [place] #### VD25H #### [facility] [address] [place] [address] WBC #/vol (Bld) Negative Normal Negative [facility] Comment on above: Performed By: #### H EMDF, PT, BMP3M, PHOS3, MG3, CK3 #### [address] [place], [place] #### VD25H #### [facility] [address] [place] [address] Basic Metabolic Panelon -2 Calcium mass conc 7.8 mg/dL Low 8.4-10.4 [facility] Comment on above: Performed By: #### H EMDF, PT, BMP3M, PHOS3, MG3, CK3 #### [address] [facility], [place] #### VD25H #### [facility] [address] [place] [address] Glucose mass conc 102 mg/dL High 70-100 [facility] Comment on above: Performed By: #### H EMDF, PT, BMP3M, PHOS3, MG3, CK3 #### [address] [place], [place] #### VD25H #### [facility] [address] [place] [address] Anion gap molar conc 0 Normal [facility] Comment on above: Performed By: #### H EMDF, PT, BMP3M, PHOS3, MG3, CK3 #### [address] [place], [place] #### VD25H #### [facility] [address] [place] [address] CO2 molar conc 37 mmol/L High 22-30 [facility] Comment on above: Performed By: #### H EMDF, PT, BMP3M, PHOS3, MG3, CK3 #### [place] [address] [facility], [place] #### VD25H #### [facility] [address] [place] [address] Creatinine mass conc 0.46 mg/dL Low 0.52-1.25 [facility] Comment on above: Performed By: #### H EMDF, PT, BMP3M, PHOS3, MG3, CK3 #### [address] [facility], [place] #### VD25H #### [facility] [address] [place] [address] GFR/1.73 sq M predicted among blacks MDRD vol rate/area (S/P/Bld) mL/min/{1.73_m2} Normal >60 [facility] Comment on above: Performed By: #### H EMDF, PT, BMP3M, PHOS3, MG3, CK3 #### [address] [place], [place] #### VD25H #### [facility] [address] [place] [address] GFR/1.73 sq M predicted among non-blacks MDRD vol rate/area (S/P/Bld) mL/min/{1.73_m2} Normal >60 [facility] Comment on above: Result Comment: Sour ce- MDRD equation with creatinine calibration to IDMS(NKDEP) eGFR not recommended for drug dose adjustment Performed By: #### H EMDF, PT, BMP3M, PHOS3, MG3, CK3 #### [address] #### VD25H #### [facility] [address] [place] [address] Urea nitrogen mass conc 7 mg/dL Normal 7-20 [facility] Comment on above: Performed By: #### H EMDF, PT, BMP3M, PHOS3, MG3, CK3 #### [address] [place], [place] #### VD25H #### [facility] [address] [place] [address] Potassium molar conc 3.7 mmol/L Normal 3.5-5.1 [facility] Comment on above: Performed By: #### H EMDF, PT, BMP3M, PHOS3, MG3, CK3 #### [address] #### VD25H #### [facility] [address] [place] [address] Chloride molar conc 101 mmol/L Normal 98-107 [facility] Comment on above: Performed By: #### H EMDF, PT, BMP3M, PHOS3, MG3, CK3 #### [facility] [address] [place] [address] #### VD25H #### [facility] [address] [place] [address] Sodium molar conc 138 mmol/L Normal 135-145 [facility] Comment on above: Performed By: #### H EMDF, PT, BMP3M, PHOS3, MG3, CK3 #### [facility] [address] [place] [address] #### VD25H #### [facility] [address] [place] [address] CR Chest Portableon 08-22-19 19 CR Chest Portable Patient Name: KATHYA HOOPER Diagnostic Radiology Exam Date/Time 08/21/2018 09:46:47 EDT Exam CR Chest Portable Ordering Physician MALLORY STAPLES Accession Number [id number] CPT4 Codes 32451 () Reason For Exam edema Report PORTABLE [...] Transcribed Date and Time: 08/21/2018 11:14 Normal [facility] CULTURE ANAEROBEon 9 CULTURE ANAEROBE CULTURE ANAEROBE --> Status: F No growth of anaerobes at 5 days. Normal [facility] Comment on above: Order Comment: or co llected Performed By: #### H EMDF, PT, BMP3M, PHOS3, MG3, CK3 #### [facility] [address] [place], [place] #### VD25H #### [facility] [address] [place] [address] Glucose,Bedsideon 08-21-2018 Glucose mass conc 124 mg/dL High 70-100 [facility] Comment on above: Result Comment: Test performed by glucose meter. Results may be 10%-15% lower than serum/plasma values. (CLIA ID [id number]) Performed By: #### H EMDF, PT, BMP3M, PHOS3, MG3, CK3 #### [facility] [address] [place], [place] #### VD25H #### [facility] [address] [place] [address] Glucose mass conc 135 mg/dL High 70-100 [facility] Comment on above: Result Comment: Test performed by glucose meter. Results may be 10%-15% lower than serum/plasma values. (CLIA ID [id number]) Performed By: #### H EMDF, PT, BMP3M, PHOS3, MG3, CK3 #### [facility] [address] [place], [place] #### VD25H #### [facility] [address] [place] [address] Glucose mass conc 131 mg/dL High 70-100 [facility] Comment on above: Result Comment: Test performed by glucose meter. Results may be 10%-15% lower than serum/plasma values. (CLIA ID [id number]) Performed By: #### H EMDF, PT, BMP3M, PHOS3, MG3, CK3 #### [address] [place], [place] #### VD25H #### [facility] [address] [place] [address] Glucose mass conc 112 mg/dL High 70-100 [facility] Comment on above: Result Comment: Test performed by glucose meter. Results may be 10%-15% lower than serum/plasma values. (CLIA ID [id number]) Performed By: #### H EMDF, PT, BMP3M, PHOS3, MG3, CK3 #### [address] #### VD25H #### [facility] [address] [place] [address] Basic Metabolic Panelon 07-31 Anion gap molar conc 4 Normal [facility] Comment on above: Performed By: #### H EMDF, PT, BMP3M, PHOS3, MG3, CK3 #### [address] #### VD25H #### [facility] [address] [place] [address] Calcium mass conc 7.6 mg/dL Low 8.4-10.4 [facility] Comment on above: Performed By: #### H EMDF, PT, BMP3M, PHOS3, MG3, CK3 #### [address] #### VD25H #### [facility] [address] [place] [address] CO2 molar conc 36 mmol/L High 22-30 [facility] Comment on above: Performed By: #### H EMDF, PT, BMP3M, PHOS3, MG3, CK3 #### [address], [place] #### VD25H #### [facility] [address] [place] [address] Glucose mass conc 121 mg/dL High 70-100 [facility] Comment on above: Performed By: #### H EMDF, PT, BMP3M, PHOS3, MG3, CK3 #### [address] #### VD25H #### [facility] [address] [place] [address] Urea nitrogen mass conc 9 mg/dL Normal 7-20 [facility] Comment on above: Performed By: #### H EMDF, PT, BMP3M, PHOS3, MG3, CK3 #### [address] #### VD25H #### [facility] [address] [place] [address] Creatinine mass conc 0.51 mg/dL Low 0.52-1.25 [facility] Comment on above: Performed By: #### H EMDF, PT, BMP3M, PHOS3, MG3, CK3 #### [address] #### VD25H #### [facility] [address] [place] [address] GFR/1.73 sq M predicted among blacks MDRD vol rate/area (S/P/Bld) mL/min/{1.73_m2} Normal >60 [facility] Comment on above: Performed By: #### H EMDF, PT, BMP3M, PHOS3, MG3, CK3 #### [address] #### VD25H #### [place] [address] [place] [address] GFR/1.73 sq M predicted among non-blacks MDRD vol rate/area (S/P/Bld) mL/min/{1.73_m2} Normal >60 [facility] Comment on above: Result Comment: Sour ce- MDRD equation with creatinine calibration to IDMS(NKDEP) eGFR not recommended for drug dose adjustment Performed By: #### H EMDF, PT, BMP3M, PHOS3, MG3, CK3 #### [address] #### VD25H #### [facility] [address] [place] [address] Chloride molar conc 100 mmol/L Normal 98-107 [facility] Comment on above: Performed By: #### H EMDF, PT, BMP3M, PHOS3, MG3, CK3 #### [facility] [address] [place], [place] #### VD25H #### [facility] [address] [place] [address] Potassium molar conc 3.3 mmol/L Low 3.5-5.1 [facility] Comment on above: Performed By: #### H EMDF, PT, BMP3M, PHOS3, MG3, CK3 #### [facility] [address] [place], [place] #### VD25H #### [facility] [address] [place] [address] Sodium molar conc 140 mmol/L Normal 135-145 [facility] Comment on above: Performed By: #### H EMDF, PT, BMP3M, PHOS3, MG3, CK3 #### [facility] [address] [place], [place] #### VD25H #### [facility] [address] [place] [address] Glucose,Bedsideon 08-20-2018 Glucose mass conc 121 mg/dL High 70-100 [facility] Comment on above: Result Comment: Test performed by glucose meter. Results may be 10%-15% lower than serum/plasma values. (CLIA ID [id number]) Performed By: #### H EMDF, PT, BMP3M, PHOS3, MG3, CK3 #### [facility] [address] [place], [place] #### VD25H #### [facility] [address] [place] [address] Glucose mass conc 127 mg/dL High 70-100 [facility] Comment on above: Result Comment: Test performed by glucose meter. Results may be 10%-15% lower than serum/plasma values. (CLIA ID [id number]) Performed By: #### H EMDF, PT, BMP3M, PHOS3, MG3, CK3 #### [address] [place], [place] #### VD25H #### [facility] [address] [place] [address] Hep A Abs, Totalon 9 Hep A Abs, Total Negative Normal Negative [facility] Comment on above: Result Comment: Perf ormed by [employer], [address] [place] [address] [email or web address] Moo Lay MD - Lab. Director Performed By: #### H EMDF, PT, BMP3M, PHOS3, MG3, CK3 #### [address] #### VD25H #### [facility] [address] [place] [address] Basic Metabolic Panelon 07-31 Anion gap molar conc 1 Normal [facility] Comment on above: Performed By: #### H EMDF, PT, BMP3M, PHOS3, MG3, CK3 #### [address] #### VD25H #### [facility] [address] [place] [address] Calcium mass conc 7.6 mg/dL Low 8.4-10.4 [facility] Comment on above: Performed By: #### H EMDF, PT, BMP3M, PHOS3, MG3, CK3 #### [address] #### VD25H #### [facility] [address] [place] [address] CO2 molar conc 33 mmol/L High 22-30 [facility] Comment on above: Performed By: #### H EMDF, PT, BMP3M, PHOS3, MG3, CK3 #### [address] #### VD25H #### [facility] [address] [place] [address] Glucose mass conc 139 mg/dL High 70-100 [facility] Comment on above: Performed By: #### H EMDF, PT, BMP3M, PHOS3, MG3, CK3 #### [address] [place], [place] #### VD25H #### [facility] [address] [place] [address] Urea nitrogen mass conc 10 mg/dL Normal 7-20 [facility] Comment on above: Performed By: #### H EMDF, PT, BMP3M, PHOS3, MG3, CK3 #### [address] [place], [place] #### VD25H #### [facility] [address] [place] [address] Creatinine mass conc 0.57 mg/dL Normal 0.52-1.25 [facility] Comment on above: Performed By: #### H EMDF, PT, BMP3M, PHOS3, MG3, CK3 #### [address] #### VD25H #### [facility] [address] [place] [address] GFR/1.73 sq M predicted among blacks MDRD vol rate/area (S/P/Bld) mL/min/{1.73_m2} Normal >60 [facility] Comment on above: Performed By: #### H EMDF, PT, BMP3M, PHOS3, MG3, CK3 #### [address] [place], [place] #### VD25H #### [facility] [address] [place] [address] GFR/1.73 sq M predicted among non-blacks MDRD vol rate/area (S/P/Bld) mL/min/{1.73_m2} Normal >60 [facility] Comment on above: Result Comment: Sour ce- MDRD equation with creatinine calibration to IDMS(NKDEP) eGFR not recommended for drug dose adjustment Performed By: #### H EMDF, PT, BMP3M, PHOS3, MG3, CK3 #### [facility] [address] [place] [address] #### VD25H #### [facility] [address] [place] [address] Potassium molar conc 3.4 mmol/L Low 3.5-5.1 [facility] Comment on above: Performed By: #### H EMDF, PT, BMP3M, PHOS3, MG3, CK3 #### [facility] [address] [place] [address] #### VD25H #### [facility] [address] [place] [address] Chloride molar conc 104 mmol/L Normal 98-107 [facility] Comment on above: Performed By: #### H EMDF, PT, BMP3M, PHOS3, MG3, CK3 #### [facility] [address] [place] [address] #### VD25H #### [facility] [address] [place] [address] Sodium molar conc 138 mmol/L Normal 135-145 [facility] Comment on above: Performed By: #### H EMDF, PT, BMP3M, PHOS3, MG3, CK3 #### [facility] [address] [place] [address] #### VD25H #### [facility] [address] [place] [address] CULT./ST. BACTERIAon 08-19- 019 CULT./ST. BACTERIA STAIN GRAM --> Status: [...] 0.12 S Vancomycin(CHRISTI) = 1 S Normal [facility] Comment on above: Order Comment: or co llected Performed By: #### H EMDF, PT, BMP3M, PHOS3, MG3, CK3 #### [facility] [address] [place] [address] #### VD25H #### [facility] [address] [place] [address] Basic Metabolic Panelon 04-2 Calcium mass conc 7.8 mg/dL Low 8.4-10.4 [facility] Comment on above: Performed By: #### H EMDF, PT, BMP3M, PHOS3, MG3, CK3 #### [place] [address] [facility], [place] #### VD25H #### [facility] [address] [place] [address] Glucose mass conc 104 mg/dL High 70-100 [facility] Comment on above: Performed By: #### H EMDF, PT, BMP3M, PHOS3, MG3, CK3 #### [place] [address] [facility], [place] #### VD25H #### [facility] [address] [place] [address] Urea nitrogen mass conc 12 mg/dL Normal 7-20 [facility] Comment on above: Performed By: #### H EMDF, PT, BMP3M, PHOS3, MG3, CK3 #### [place] [address] [facility], [place] #### VD25H #### [facility] [address] [place] [address] Anion gap molar conc 5 Normal [facility] Comment on above: Performed By: #### H EMDF, PT, BMP3M, PHOS3, MG3, CK3 #### [place] [address] [address] [facility], [place] #### VD25H #### [facility] [address] [place] [address] CO2 molar conc 26 mmol/L Normal 22-30 [facility] Comment on above: Performed By: #### H EMDF, PT, BMP3M, PHOS3, MG3, CK3 #### [place] [address] [address] [facility], [place] #### VD25H #### [facility] [address] [place] [address] Creatinine mass conc 0.61 mg/dL Normal 0.52-1.25 [facility] Comment on above: Performed By: #### H EMDF, PT, BMP3M, PHOS3, MG3, CK3 #### [facility] [address] [place] [address] #### VD25H #### [facility] [address] [place] [address] GFR/1.73 sq M predicted among blacks MDRD vol rate/area (S/P/Bld) mL/min/{1.73_m2} Normal >60 [facility] Comment on above: Performed By: #### H EMDF, PT, BMP3M, PHOS3, MG3, CK3 #### [address] [place], [place] #### VD25H #### [facility] [address] [place] [address] GFR/1.73 sq M predicted among non-blacks MDRD vol rate/area (S/P/Bld) mL/min/{1.73_m2} Normal >60 [facility] Comment on above: Result Comment: Sour ce- MDRD equation with creatinine calibration to IDMS(NKDEP) eGFR not recommended for drug dose adjustment Performed By: #### H EMDF, PT, BMP3M, PHOS3, MG3, CK3 #### [address], [place] #### VD25H #### [facility] [address] [place] [address] Chloride molar conc 107 mmol/L Normal 98-107 [facility] Comment on above: Performed By: #### H EMDF, PT, BMP3M, PHOS3, MG3, CK3 #### [address], [place] #### VD25H #### [facility] [address] [place] [address] Potassium molar conc 3.4 mmol/L Low 3.5-5.1 [facility] Comment on above: Performed By: #### H EMDF, PT, BMP3M, PHOS3, MG3, CK3 #### [address] #### VD25H #### [facility] [address] [place] [address] Sodium molar conc 138 mmol/L Normal 135-145 [facility] Comment on above: Performed By: #### H EMDF, PT, BMP3M, PHOS3, MG3, CK3 #### [address] #### VD25H #### [facility] [address] [place] [address] Glucose,Bedsideon 08-18-2018 Glucose mass conc 113 mg/dL High 70-100 [facility] Comment on above: Result Comment: Test performed by glucose meter. Results may be 10%-15% lower than serum/plasma values. (CLIA ID [id number]) Performed By: #### H EMDF, PT, BMP3M, PHOS3, MG3, CK3 #### [address] #### VD25H #### [place] [address] [place] [address] Hemogram w/ Autodiffon 08-18 Erythrocyte distribution width Ratio (RBC) 14.4 % Normal 11.5-14.5 [facility] [place] [facility] Comment on above: Performed By: #### H EMDF, PT, BMP3M, PHOS3, MG3, CK3 #### [address] #### VD25H #### [facility] [address] [facility] [place] [address] Hematocrit Volume Fraction (Bld) 29.3 % Low 40.0-52.0 [facility] [place] [facility] Comment on above: Performed By: #### H EMDF, PT, BMP3M, PHOS3, MG3, CK3 #### [address] #### VD25H #### [facility] [address] [place] [address] Hemoglobin mass conc (Bld) 9.8 g/dL Low 13.0-18.0 [facility] Comment on above: Performed By: #### H EMDF, PT, BMP3M, PHOS3, MG3, CK3 #### [place] [address] [address] [place] #### VD25H #### [facility] [address] [place] [address] MCH Entitic mass (RBC) 28.0 pg Normal 26.0-34.0 [facility] Comment on above: Performed By: #### H EMDF, PT, BMP3M, PHOS3, MG3, CK3 #### [place] [address] [address] [place] #### VD25H #### [facility] [address] [place] [address] MCHC mass conc (RBC) 33.4 % Normal 32.0-36.0 [facility] Comment on above: Performed By: #### H EMDF, PT, BMP3M, PHOS3, MG3, CK3 #### [place] [address] [address] [place] #### VD25H #### [facility] [address] [place] [address] MCV Entitic volume (RBC) 84.1 fL Normal 80.0-98.0 [facility] Comment on above: Performed By: #### H EMDF, PT, BMP3M, PHOS3, MG3, CK3 #### [address] #### VD25H #### [facility] [address] [place] [address] Platelet mean volume Entitic volume (Bld) 7.9 fL Normal 7.4-10.4 [facility] Comment on above: Performed By: #### H EMDF, PT, BMP3M, PHOS3, MG3, CK3 #### [address] [place], [place] #### VD25H #### [facility] [address] [place] [address] Platelets #/vol (Bld) 301 10*3/uL Normal 140-440 [facility] Comment on above: Performed By: #### H EMDF, PT, BMP3M, PHOS3, MG3, CK3 #### [place] [address] [address] [place] #### VD25H #### [facility] [address] [place] [address] RBC #/vol (Bld) 3.49 10*6/uL Low 4.40-5.90 [facility] Comment on above: Performed By: #### H EMDF, PT, BMP3M, PHOS3, MG3, CK3 #### [address] #### VD25H #### [place] [address] [place] [address] WBC #/vol (Bld) 8.3 10*3/uL Normal 3.6-10.7 [facility] Comment on above: Performed By: #### H EMDF, PT, BMP3M, PHOS3, MG3, CK3 #### [address] #### VD25H #### [facility] [address] [place] [address] Magnesiumon 08-18-2018 Magnesium mass conc 2.0 mg/dL Normal 1.6-2.3 [facility] Comment on above: Performed By: #### H EMDF, PT, BMP3M, PHOS3, MG3, CK3 #### [address] [place], [place] #### VD25H #### [facility] [address] [place] [address] Manual Diffon 08-18-2018 Abs Neutrophile Cnt 5.1 10*3/uL Normal 2.2-8.2 [facility] Comment on above: Performed By: #### H EMDF, PT, BMP3M, PHOS3, MG3, CK3 #### [address] #### VD25H #### [place] [address] [place] [address] Bands 3 % Normal 0-3 [facility] Comment on above: Performed By: #### H EMDF, PT, BMP3M, PHOS3, MG3, CK3 #### [facility] [address] [place], [place] #### VD25H #### [facility] [address] [place] [address] Eosinophils #/vol (Bld) 0.2 10*3/uL Normal 0.0-0.5 [facility] Comment on above: Performed By: #### H EMDF, PT, BMP3M, PHOS3, MG3, CK3 #### [place] [address] [address] [place] #### VD25H #### [facility] [address] [place] [address] Eosinophils/100 WBC (Bld) 2 % Normal 1-6 [facility] Comment on above: Performed By: #### H EMDF, PT, BMP3M, PHOS3, MG3, CK3 #### [address] #### VD25H #### [facility] [address] [place] [address] Lymphocytes #/vol (Bld) 2.1 10*3/uL Normal 1.1-4.5 [facility] Comment on above: Performed By: #### H EMDF, PT, BMP3M, PHOS3, MG3, CK3 #### [address] [place], [place] #### VD25H #### [facility] [address] [place] [address] Lymphocytes/100 WBC (Bld) 25 % Normal 20-40 [facility] Comment on above: Performed By: #### H EMDF, PT, BMP3M, PHOS3, MG3, CK3 #### [address] #### VD25H #### [facility] [address] [place] [address] Metamyelocytes 1 % Abnormal <1 [facility] Comment on above: Performed By: #### H EMDF, PT, BMP3M, PHOS3, MG3, CK3 #### [facility] [address] [place], [place] #### VD25H #### [facility] [address] [place] [address] Monocytes #/vol (Bld) 0.6 10*3/uL Normal 0.2-1.1 [facility] Comment on above: Performed By: #### H EMDF, PT, BMP3M, PHOS3, MG3, CK3 #### [address] #### VD25H #### [facility] [address] [place] [address] Monocytes/100 WBC (Bld) 7 % Normal 2-10 [facility] Comment on above: Performed By: #### H EMDF, PT, BMP3M, PHOS3, MG3, CK3 #### [place] [address] [place] #### VD25H #### [facility] [address] [place] [address] Myelocytes 1 % Abnormal <1 [facility] Comment on above: Performed By: #### H EMDF, PT, BMP3M, PHOS3, MG3, CK3 #### [place] [address] [place] #### VD25H #### [facility] [address] [place] [address] Protein mass conc 2 % Abnormal <1 [facility] Comment on above: Performed By: #### H EMDF, PT, BMP3M, PHOS3, MG3, CK3 #### [address] #### VD25H #### [facility] [address] [place] [address] RBC morphology finding Nom (Bld) See Prev Normal [facility] Comment on above: Performed By: #### H EMDF, PT, BMP3M, PHOS3, MG3, CK3 #### [address] #### VD25H #### [facility] [address] [place] [address] Seg Neutrophils 59 % Normal 40-80 [facility] Comment on above: Performed By: #### H EMDF, PT, BMP3M, PHOS3, MG3, CK3 #### [address] [place], [place] #### VD25H #### [facility] [address] [place] [address] Abs Baso Cnt 0.0 10*3/uL Normal 0.0-0.2 [facility] Comment on above: Performed By: #### H EMDF, PT, BMP3M, PHOS3, MG3, CK3 #### [address] #### VD25H #### [facility] [address] [place] [address] Basophils/100 WBC (Bld) 0 % Normal 0-2 [facility] Comment on above: Performed By: #### H EMDF, PT, BMP3M, PHOS3, MG3, CK3 #### [address] #### VD25H #### [facility] [address] [place] [address] Cells counted 100 Normal [facility] Comment on above: Performed By: #### H EMDF, PT, BMP3M, PHOS3, MG3, CK3 #### [address] #### VD25H #### [facility] [address] [place] [address] Phosphoruson 08-18-2018 Phosphate mass conc 4.6 mg/dL High 2.5-4.5 [facility] Comment on above: Performed By: #### H EMDF, PT, BMP3M, PHOS3, MG3, CK3 #### [place] [address] [address] [place] #### VD25H #### [facility] [address] [place] [address] Basic Metabolic Panelon 07-30 Calcium mass conc 7.7 mg/dL Low 8.4-10.4 [facility] Comment on above: Performed By: #### H EMDF, PT, BMP3M, PHOS3, MG3, CK3 #### [place] [address] [address] [place] #### VD25H #### [facility] [address] [place] [address] Anion gap molar conc 7 Normal [facility] Comment on above: Performed By: #### H EMDF, PT, BMP3M, PHOS3, MG3, CK3 #### [address] #### VD25H #### [facility] [address] [place] [address] CO2 molar conc 25 mmol/L Normal 22-30 [facility] Comment on above: Performed By: #### H EMDF, PT, BMP3M, PHOS3, MG3, CK3 #### [address] #### VD25H #### [facility] [address] [place] [address] Creatinine mass conc 0.59 mg/dL Normal 0.52-1.25 [facility] Comment on above: Performed By: #### H EMDF, PT, BMP3M, PHOS3, MG3, CK3 #### [address] [place], [place] #### VD25H #### [facility] [address] [place] [address] GFR/1.73 sq M predicted among blacks MDRD vol rate/area (S/P/Bld) mL/min/{1.73_m2} Normal >60 [facility] Comment on above: Performed By: #### H EMDF, PT, BMP3M, PHOS3, MG3, CK3 #### [address] [place], [place] #### VD25H #### [facility] [address] [place] [address] GFR/1.73 sq M predicted among non-blacks MDRD vol rate/area (S/P/Bld) mL/min/{1.73_m2} Normal >60 [facility] Comment on above: Result Comment: Sour ce- MDRD equation with creatinine calibration to IDMS(NKDEP) eGFR not recommended for drug dose adjustment Performed By: #### H EMDF, PT, BMP3M, PHOS3, MG3, CK3 #### [address] #### VD25H #### [facility] [address] [place] [address] Glucose mass conc 116 mg/dL High 70-100 [facility] Comment on above: Performed By: #### H EMDF, PT, BMP3M, PHOS3, MG3, CK3 #### [address] #### VD25H #### [facility] [address] [place] [address] Urea nitrogen mass conc 12 mg/dL Normal 7-20 [facility] Comment on above: Performed By: #### H EMDF, PT, BMP3M, PHOS3, MG3, CK3 #### [address] #### VD25H #### [facility] [address] [place] [address] Potassium molar conc 3.2 mmol/L Low 3.5-5.1 [facility] Comment on above: Performed By: #### H EMDF, PT, BMP3M, PHOS3, MG3, CK3 #### [address] #### VD25H #### [facility] [address] [place] [address] Sodium molar conc 138 mmol/L Normal 135-145 [facility] Comment on above: Performed By: #### H EMDF, PT, BMP3M, PHOS3, MG3, CK3 #### [facility] [address] [place] [address] #### VD25H #### [facility] [address] [place] [address] Chloride molar conc 106 mmol/L Normal 98-107 [facility] Comment on above: Performed By: #### H EMDF, PT, BMP3M, PHOS3, MG3, CK3 #### [facility] [address] [place] [address] #### VD25H #### [facility] [address] [place] [address] CR Chest Portableon 08-18-19 CR Chest Portable Patient Name: KATHYA HOOPER Diagnostic Radiology Exam Date/Time 08/17/2018 17:54:46 EDT Exam CR Chest Portable Ordering Physician SALO DAVIS Accession Number [id number] CPT4 Codes 70266 () Reason For Exam line placement Report [...] Transcribed Date and Time: 08/17/2018 6:05 Normal [facility] CR Chest Portable Patient Name: KATHYA HOOPER Diagnostic Radiology Exam Date/Time 08/17/2018 06:11:03 EDT Exam CR Chest Portable Ordering Physician ETIENNE VELÁSQUEZ KATHYA Costa Accession Number [id number] CPT4 Codes 11871 () Reason For Exam follow left pleural [...] Transcribed Date and Time: 08/17/2018 7:16 Normal [facility] Ferritinon 08-17-2018 Ferritin mass conc 1100 ng/mL High 18-464 [facility] Comment on above: Performed By: #### H EMDF, PT, BMP3M, PHOS3, MG3, CK3 #### [facility] [address] [place] [address] #### VD25H #### [facility] [address] [place] [address] Folateon 08-17-2018 Folate 15.1 ng/mL Normal 2.8-20.0 [facility] Comment on above: Performed By: #### H EMDF, PT, BMP3M, PHOS3, MG3, CK3 #### [facility] [address] [place] [address] #### VD25H #### [facility] [address] [place] [address] Glucose,Bedsideon 08-17-2018 Glucose mass conc 133 mg/dL High 70-100 [facility] Comment on above: Result Comment: Test performed by glucose meter. Results may be 10%-15% lower than serum/plasma values. (CLIA ID [id number]) Performed By: #### H EMDF, PT, BMP3M, PHOS3, MG3, CK3 #### [address] #### VD25H #### [facility] [address] [place] [address] Hemoglobin A1Con 08-17-2018 Hemoglobin A1c/Hemoglobin.total mass fraction (Bld) 117 mg/dL Normal [facility] Comment on above: Performed By: #### H EMDF, PT, BMP3M, PHOS3, MG3, CK3 #### [address] #### VD25H #### [address] [place] [address] Hemoglobin A1c/Hemoglobin.total mass fraction (Bld) 5.7 % Normal 4.0-5.7 [facility] Comment on above: Result Comment: --Hg bA1C levels may not be accurate in patients who have renal disease, received recent blood transfusions, are anemic, or who have dyshemoglobinemia. Performed By: #### H EMDF, PT, BMP3M, PHOS3, MG3, CK3 #### [facility] [address] #### VD25H #### [facility] [address] [place] [address] Hemogram w/ Autodiffon 08-17 Erythrocyte distribution width Ratio (RBC) 14.3 % Normal 11.5-14.5 [facility] Comment on above: Performed By: #### H EMDF, PT, BMP3M, PHOS3, MG3, CK3 #### [facility] [address] #### VD25H #### [facility] [address] [place] [address] Hematocrit Volume Fraction (Bld) 29.1 % Low 40.0-52.0 [facility] Comment on above: Performed By: #### H EMDF, PT, BMP3M, PHOS3, MG3, CK3 #### [address] #### VD25H #### [facility] [address] [place] [address] Hemoglobin mass conc (Bld) 9.8 g/dL Low 13.0-18.0 [facility] Comment on above: Performed By: #### H EMDF, PT, BMP3M, PHOS3, MG3, CK3 #### [address] #### VD25H #### [place] [address] [place] [address] MCH Entitic mass (RBC) 28.4 pg Normal 26.0-34.0 [facility] Comment on above: Performed By: #### H EMDF, PT, BMP3M, PHOS3, MG3, CK3 #### [address] #### VD25H #### [place] [address] [place] [address] MCHC mass conc (RBC) 33.5 % Normal 32.0-36.0 [facility] Comment on above: Performed By: #### H EMDF, PT, BMP3M, PHOS3, MG3, CK3 #### [address] #### VD25H #### [place] [address] [place] [address] MCV Entitic volume (RBC) 84.7 fL Normal 80.0-98.0 [facility] Comment on above: Performed By: #### H EMDF, PT, BMP3M, PHOS3, MG3, CK3 #### [address] #### VD25H #### [facility] [address] [place] [address] Platelet mean volume Entitic volume (Bld) 8.1 fL Normal 7.4-10.4 [facility] Comment on above: Performed By: #### H EMDF, PT, BMP3M, PHOS3, MG3, CK3 #### [place] [address] [place] #### VD25H #### [facility] [address] [place] [address] Platelets #/vol (Bld) 281 10*3/uL Normal 140-440 [facility] Comment on above: Performed By: #### H EMDF, PT, BMP3M, PHOS3, MG3, CK3 #### [address] #### VD25H #### [facility] [address] [place] [address] RBC #/vol (Bld) 3.44 10*6/uL Low 4.40-5.90 [facility] Comment on above: Performed By: #### H EMDF, PT, BMP3M, PHOS3, MG3, CK3 #### [address] #### VD25H #### [facility] [address] [place] [address] WBC #/vol (Bld) 8.3 10*3/uL Normal 3.6-10.7 [facility] Comment on above: Performed By: #### H EMDF, PT, BMP3M, PHOS3, MG3, CK3 #### [address] #### VD25H #### [facility] [address] [place] [address] Hep B Surface Abon 9 Hep B Surface Ab < 8.0 Normal [facility] Comment on above: Result Comment: Inte rpretation: <8.0 Non-Reactive 8.0-11.9 Equivocal >= 12.0 Ab Detected Performed By: #### H EMDF, PT, BMP3M, PHOS3, MG3, CK3 #### [facility] [address] [place], [place] #### VD25H #### [facility] [address] [place] [address] Hep B Surface Agon 9 Hep B Surface Ag NOT DETECTED Normal Not-Detected [facility] Comment on above: Performed By: #### H EMDF, PT, BMP3M, PHOS3, MG3, CK3 #### [facility] [address] [place], [place] #### VD25H #### [facility] [address] [place] [address] Hep C Antibodyon 08-17-2018 Hep C Antibody NOT DETECTED Normal Not-Detected [facility] Comment on above: Result Comment: Bharti ents with DETECTED Hepatitis C Ab results should have a new specimen submitted for supplemental testing with a Hepatitis C Quantitative RNA assay (viral load), if clinically indicated. Performed By: #### H EMDF, PT, BMP3M, PHOS3, MG3, CK3 #### [facility] [address] [place], [place] #### VD25H #### [facility] [address] [place] [address] Hepatic Functionon 9 ALP enzyme act/vol 116 U/L Normal 38-126 [facility] Comment on above: Performed By: #### H EMDF, PT, BMP3M, PHOS3, MG3, CK3 #### [facility] [address] [place], [place] #### VD25H #### [facility] [address] [place] [address] ALT enzyme act/vol 370 U/L High 13-69 [facility] Comment on above: Performed By: #### H EMDF, PT, BMP3M, PHOS3, MG3, CK3 #### [facility] [address] [place] #### VD25H #### [facility] [address] [place] [address] AST enzyme act/vol 150 U/L High 15-46 [facility] Comment on above: Performed By: #### H EMDF, PT, BMP3M, PHOS3, MG3, CK3 #### [address] [place], [place] #### VD25H #### [facility] [address] [place] [address] Bilirubin mass conc 0.7 mg/dL Normal 0.2-1.3 [facility] Comment on above: Performed By: #### H EMDF, PT, BMP3M, PHOS3, MG3, CK3 #### [address] #### VD25H #### [facility] [address] [place] [address] Bilirubin.direct mass conc 0.0 mg/dL Normal 0.0-0.3 [facility] Comment on above: Performed By: #### H EMDF, PT, BMP3M, PHOS3, MG3, CK3 #### [address] #### VD25H #### [facility] [address] [place] [address] Protein mass conc 5.4 g/dL Low 6.3-8.2 [facility] Comment on above: Performed By: #### H EMDF, PT, BMP3M, PHOS3, MG3, CK3 #### [address] #### VD25H #### [facility] [address] [place] [address] Albumin mass conc 2.5 g/dL Low 3.5-5.0 [facility] Comment on above: Performed By: #### H EMDF, PT, BMP3M, PHOS3, MG3, CK3 #### [address] #### VD25H #### [facility] [address] [place] [address] Iron AND TIBCon 08-17-2018 Saturation 14 % Low 15-50 [facility] Comment on above: Performed By: #### H EMDF, PT, BMP3M, PHOS3, MG3, CK3 #### [place] [address] [address] [place], [place] #### VD25H #### [facility] [address] [place] [address] Total Iron Binding Cap. 166 ug/dL Low 261-497 [facility] Comment on above: Performed By: #### H EMDF, PT, BMP3M, PHOS3, MG3, CK3 #### [address] #### VD25H #### [place] [address] [place] [address] Iron, Total 23 ug/dL Low 49-181 [facility] Comment on above: Performed By: #### H EMDF, PT, BMP3M, PHOS3, MG3, CK3 #### [address] #### VD25H #### [place] [address] [place] [address] Magnesiumon 08-17-2018 Magnesium mass conc 2.0 mg/dL Normal 1.6-2.3 [facility] Comment on above: Performed By: #### H EMDF, PT, BMP3M, PHOS3, MG3, CK3 #### [address] [place], [place] #### VD25H #### [facility] [address] [place] [address] Manual Diffon 08-17-2018 Abs Baso Cnt 0.1 10*3/uL Normal 0.0-0.2 [facility] Comment on above: Performed By: #### H EMDF, PT, BMP3M, PHOS3, MG3, CK3 #### [address] #### VD25H #### [facility] [address] [place] [address] Abs Neutrophile Cnt 5.6 10*3/uL Normal 2.2-8.2 [facility] Comment on above: Performed By: #### H EMDF, PT, BMP3M, PHOS3, MG3, CK3 #### [place] [address] [address] [place], [place] #### VD25H #### [facility] [address] [place] [address] Anisocytosis Ql (Bld) Slight Normal [facility] Comment on above: Performed By: #### H EMDF, PT, BMP3M, PHOS3, MG3, CK3 #### [place] [address] [address] [place], [place] #### VD25H #### [place] [address] [place] [address] Bands 9 % High 0-3 [facility] Comment on above: Performed By: #### H EMDF, PT, BMP3M, PHOS3, MG3, CK3 #### [address] #### VD25H #### [place] [address] [place] [address] Basophils/100 WBC (Bld) 1 % Normal 0-2 [facility] Comment on above: Performed By: #### H EMDF, PT, BMP3M, PHOS3, MG3, CK3 #### [place] [address] [address] [place], [place] #### VD25H #### [facility] [address] [place] [address] Eosinophils #/vol (Bld) 0.2 10*3/uL Normal 0.0-0.5 [facility] Comment on above: Performed By: #### H EMDF, PT, BMP3M, PHOS3, MG3, CK3 #### [address] #### VD25H #### [place] [address] [place] [address] Eosinophils/100 WBC (Bld) 3 % Normal 1-6 [facility] Comment on above: Performed By: #### H EMDF, PT, BMP3M, PHOS3, MG3, CK3 #### [facility] [address] [place], [place] #### VD25H #### [facility] [address] [place] [address] Lymphocytes #/vol (Bld) 1.5 10*3/uL Normal 1.1-4.5 [facility] Comment on above: Performed By: #### H EMDF, PT, BMP3M, PHOS3, MG3, CK3 #### [address] [place], [place] #### VD25H #### [facility] [address] [place] [address] Lymphocytes/100 WBC (Bld) 18 % Low 20-40 [facility] Comment on above: Performed By: #### H EMDF, PT, BMP3M, PHOS3, MG3, CK3 #### [address] #### VD25H #### [facility] [address] [place] [address] Monocytes #/vol (Bld) 0.4 10*3/uL Normal 0.2-1.1 [facility] Comment on above: Performed By: #### H EMDF, PT, BMP3M, PHOS3, MG3, CK3 #### [address] [place], [place] #### VD25H #### [facility] [address] [place] [address] Monocytes/100 WBC (Bld) 5 % Normal 2-10 [facility] Comment on above: Performed By: #### H EMDF, PT, BMP3M, PHOS3, MG3, CK3 #### [address] [address] [place] #### VD25H #### [facility] [address] [place] [address] Myelocytes 5 % Abnormal <1 [facility] [place] [facility] Comment on above: Performed By: #### H EMDF, PT, BMP3M, PHOS3, MG3, CK3 #### [facility] [address] [place], [place] #### VD25H #### [facility] [address] [place] [address] Polychromasia Slight Normal [facility] Comment on above: Performed By: #### H EMDF, PT, BMP3M, PHOS3, MG3, CK3 #### [address] #### VD25H #### [facility] [address] [place] [address] RBC morphology finding Nom (Bld) ABNORMAL Normal [facility] [place] [facility] Comment on above: Performed By: #### H EMDF, PT, BMP3M, PHOS3, MG3, CK3 #### [address] [place], [place] #### VD25H #### [facility] [address] [place] [address] Seg Neutrophils 59 % Normal 40-80 [facility] Comment on above: Performed By: #### H EMDF, PT, BMP3M, PHOS3, MG3, CK3 #### [address] #### VD25H #### [facility] [address] [place] [address] Toxic Granulation Slight Normal [facility] Comment on above: Performed By: #### H EMDF, PT, BMP3M, PHOS3, MG3, CK3 #### [address] #### VD25H #### [facility] [address] [place] [address] Cells counted 100 Normal [facility] Comment on above: Performed By: #### H EMDF, PT, BMP3M, PHOS3, MG3, CK3 #### [address] [place], [place] #### VD25H #### [facility] [address] [place] [address] Phosphoruson 08-17-2018 Phosphate mass conc 3.9 mg/dL Normal 2.5-4.5 [facility] Comment on above: Performed By: #### H EMDF, PT, BMP3M, PHOS3, MG3, CK3 #### [address] [place] #### VD25H #### [facility] [address] [place] [address] Triglycerideon 08-17-2018 Triglyceride mass conc 104 mg/dL Normal <150 [facility] Comment on above: Performed By: #### H EMDF, PT, BMP3M, PHOS3, MG3, CK3 #### [address] #### VD25H #### [facility] [address] [place] [address] Vitamin B12on 08-17-2018 Cobalamin (Vitamin B12) mass conc 615 pg/mL Normal 239-931 [facility] Comment on above: Performed By: #### H EMDF, PT, BMP3M, PHOS3, MG3, CK3 #### [address] #### VD25H #### [facility] [address] [place] [address] Albumin, Serumon 08-16-2018 Albumin mass conc 2.6 g/dL Low 3.5-5.0 [facility] Comment on above: Performed By: #### H EMDF, PT, BMP3M, PHOS3, MG3, CK3 #### [address] [place], [place] #### VD25H #### [facility] [address] [place] [address] CR Abdomen APon 08-16-2018 CR Abdomen AP Patient Name: KATHYA HOOPER Diagnostic Radiology Exam Date/Time 08/16/2018 10:17:24 EDT Exam CR Abdomen AP Ordering Physician JOEY CABALLERO Accession Number [id number] CPT4 Codes 36903 () Reason For Exam dobhoff placement Report [...] Transcribed Date and Time: 08/16/2018 12:33 Normal [facility] CR Chest Portableon 08-17-19 CR Chest Portable Patient Name: KATHYA HOOPER Diagnostic Radiology Exam Date/Time 08/16/2018 10:17:24 EDT Exam CR Chest Portable Ordering Physician Krystal JOEY VILLAGRAN Accession Number [id number] CPT4 Codes 35695 () Reason For Exam dyspnea Report PORTABLE [...] Transcribed Date and Time: 08/16/2018 12:31 Normal [facility] Comp Panel with Mg Reflexon 08-16-2018 Calcium mass conc 7.8 mg/dL Low 8.4-10.4 [facility] Comment on above: Performed By: #### H EMDF, PT, BMP3M, PHOS3, MG3, CK3 #### [facility] [address] [place], [place] #### VD25H #### [facility] [address] [place] [address] Glucose mass conc 114 mg/dL High 70-100 [facility] Comment on above: Performed By: #### H EMDF, PT, BMP3M, PHOS3, MG3, CK3 #### [facility] [address] [place], [place] #### VD25H #### [facility] [address] [place] [address] ALP enzyme act/vol 114 U/L Normal 38-126 [facility] Comment on above: Performed By: #### H EMDF, PT, BMP3M, PHOS3, MG3, CK3 #### [facility] [address] [place], [place] #### VD25H #### [facility] [address] [place] [address] ALT enzyme act/vol 539 U/L High 13-69 [facility] Comment on above: Performed By: #### H EMDF, PT, BMP3M, PHOS3, MG3, CK3 #### [facility] [address] [place] #### VD25H #### [facility] [address] [place] [address] Anion gap molar conc 4 Normal [facility] Comment on above: Performed By: #### H EMDF, PT, BMP3M, PHOS3, MG3, CK3 #### [facility] [address] [place], [place] #### VD25H #### [facility] [address] [place] [address] AST enzyme act/vol 460 U/L High 15-46 [facility] Comment on above: Performed By: #### H EMDF, PT, BMP3M, PHOS3, MG3, CK3 #### [address] [place], [place] #### VD25H #### [facility] [address] [place] [address] Bilirubin mass conc 0.7 mg/dL Normal 0.2-1.3 [facility] Comment on above: Performed By: #### H EMDF, PT, BMP3M, PHOS3, MG3, CK3 #### [address] [place], [place] #### VD25H #### [facility] [address] [place] [address] CO2 molar conc 25 mmol/L Normal 22-30 [facility] Comment on above: Performed By: #### H EMDF, PT, BMP3M, PHOS3, MG3, CK3 #### [address] [address] [place] #### VD25H #### [facility] [address] [place] [address] Creatinine mass conc 0.71 mg/dL Normal 0.52-1.25 [facility] Comment on above: Performed By: #### H EMDF, PT, BMP3M, PHOS3, MG3, CK3 #### [address] [facility], [place] #### VD25H #### [facility] [address] [place] [address] GFR/1.73 sq M predicted among blacks MDRD vol rate/area (S/P/Bld) mL/min/{1.73_m2} Normal >60 [facility] Comment on above: Performed By: #### H EMDF, PT, BMP3M, PHOS3, MG3, CK3 #### [address] [place] [address] #### VD25H #### [facility] [address] [place] [address] GFR/1.73 sq M predicted among non-blacks MDRD vol rate/area (S/P/Bld) mL/min/{1.73_m2} Normal >60 [facility] Comment on above: Result Comment: Sour ce- MDRD equation with creatinine calibration to IDMS(NKDEP) eGFR not recommended for drug dose adjustment Performed By: #### H EMDF, PT, BMP3M, PHOS3, MG3, CK3 #### [address] #### VD25H #### [facility] [address] [place] [address] Protein mass conc 5.1 g/dL Low 6.3-8.2 [facility] Comment on above: Performed By: #### H EMDF, PT, BMP3M, PHOS3, MG3, CK3 #### [address] #### VD25H #### [facility] [address] [place] [address] Urea nitrogen mass conc 22 mg/dL High 7-20 [facility] Comment on above: Performed By: #### H EMDF, PT, BMP3M, PHOS3, MG3, CK3 #### [address] #### VD25H #### [facility] [address] [place] [address] Chloride molar conc 102 mmol/L Normal 98-107 [facility] Comment on above: Performed By: #### H EMDF, PT, BMP3M, PHOS3, MG3, CK3 #### [address] #### VD25H #### [facility] [address] [place] [address] Potassium molar conc 3.1 mmol/L Low 3.5-5.1 [facility] Comment on above: Performed By: #### H EMDF, PT, BMP3M, PHOS3, MG3, CK3 #### [facility] [address] [place] #### VD25H #### [facility] [address] [place] [address] Sodium molar conc 131 mmol/L Low 135-145 [facility] Comment on above: Performed By: #### H EMDF, PT, BMP3M, PHOS3, MG3, CK3 #### [address] [place] #### VD25H #### [facility] [address] [place] [address] Albumin mass conc 2.4 g/dL Low 3.5-5.0 [facility] Comment on above: Performed By: #### H EMDF, PT, BMP3M, PHOS3, MG3, CK3 #### [facility] [address] [place] #### VD25H #### [facility] [address] [place] [address] Glucose,Bedsideon 08-16-2018 Glucose mass conc 100 mg/dL Normal 70-100 [facility] Comment on above: Result Comment: Test performed by glucose meter. Results may be 10%-15% lower than serum/plasma values. (CLIA ID [id number]) Performed By: #### H EMDF, PT, BMP3M, PHOS3, MG3, CK3 #### [address] [place], [place] #### VD25H #### [facility] [address] [place] [address] Glucose mass conc 98 mg/dL Normal 70-100 [facility] Comment on above: Result Comment: Test performed by glucose meter. Results may be 10%-15% lower than serum/plasma values. (CLIA ID [id number]) Performed By: #### H EMDF, PT, BMP3M, PHOS3, MG3, CK3 #### [facility] [address] [place] [address] #### VD25H #### [employer] [facility] [address] [place] [address] Glucose mass conc 110 mg/dL High 70-100 [facility] Comment on above: Result Comment: Test performed by glucose meter. Results may be 10%-15% lower than serum/plasma values. (CLIA ID [id number]) Performed By: #### H EMDF, PT, BMP3M, PHOS3, MG3, CK3 #### [employer] [facility] [address] [place] [address] #### VD25H #### [employer] [facility] [address] [place] [address] Glucose mass conc 113 mg/dL High 70-100 [facility] Comment on above: Result Comment: Test performed by glucose meter. Results may be 10%-15% lower than serum/plasma values. (CLIA ID [id number]) Performed By: #### H EMDF, PT, BMP3M, PHOS3, MG3, CK3 #### [employer] [facility] [address] [place] [phone] #### VD25H #### [employer] [facility] [address] [place] [address] Glucose mass conc 126 mg/dL High 70-100 [facility] Comment on above: Result Comment: Test performed by glucose meter. Results may be 10%-15% lower than serum/plasma values. (CLIA ID [id number]) Performed By: #### H EMDF, PT, BMP3M, PHOS3, MG3, CK3 #### [facility] [address] [place] [phone] #### VD25H #### [facility] [employer] [facility] [address] [place] [address] Hemogram w/ Autodiffon 08-16 Abs Baso Cnt 0.0 10*3/uL Normal 0.0-0.2 [facility] Comment on above: Performed By: #### H EMDF, PT, BMP3M, PHOS3, MG3, CK3 #### [facility] [address] [place], [place] #### VD25H #### [facility] [address] [place] [address] Abs Neutrophile Cnt 7.7 10*3/uL High 1.8-7.0 [facility] Comment on above: Performed By: #### H EMDF, PT, BMP3M, PHOS3, MG3, CK3 #### [address] #### VD25H #### [facility] [address] [place] [address] Basophils/100 WBC (Bld) 0.5 % Normal 0.0-2.0 [facility] Comment on above: Performed By: #### H EMDF, PT, BMP3M, PHOS3, MG3, CK3 #### [address] #### VD25H #### [facility] [address] [place] [address] Eosinophils #/vol (Bld) 0.1 10*3/uL Normal 0.0-0.5 [facility] Comment on above: Performed By: #### H EMDF, PT, BMP3M, PHOS3, MG3, CK3 #### [address] #### VD25H #### [facility] [address] [place] [address] Eosinophils/100 WBC (Bld) 1.5 % Normal 1.0-6.0 [facility] Comment on above: Performed By: #### H EMDF, PT, BMP3M, PHOS3, MG3, CK3 #### [address] #### VD25H #### [facility] [address] [place] [address] Erythrocyte distribution width Ratio (RBC) 14.4 % Normal 11.5-14.5 [facility] Comment on above: Performed By: #### H EMDF, PT, BMP3M, PHOS3, MG3, CK3 #### [address] #### VD25H #### [facility] [address] [place] [address] Granulocytes/100 WBC (Bld) 79.7 % Normal 40.0-80.0 [facility] Comment on above: Performed By: #### H EMDF, PT, BMP3M, PHOS3, MG3, CK3 #### [address] #### VD25H #### [address] [place] [place] [address] Hematocrit Volume Fraction (Bld) 27.1 % Low 40.0-52.0 [facility] Comment on above: Performed By: #### H EMDF, PT, BMP3M, PHOS3, MG3, CK3 #### [address] #### VD25H #### [address] [place] [place] [address] Hemoglobin mass conc (Bld) 9.2 g/dL Low 13.0-18.0 [facility] Comment on above: Performed By: #### H EMDF, PT, BMP3M, PHOS3, MG3, CK3 #### [address] #### VD25H #### [facility] [address] [place] [address] Lymphocytes #/vol (Bld) 1.0 10*3/uL Normal 1.0-4.3 [facility] Comment on above: Performed By: #### H EMDF, PT, BMP3M, PHOS3, MG3, CK3 #### [address] #### VD25H #### [facility] [address] [place] [address] Lymphocytes/100 WBC (Bld) 10.0 % Low 20.0-40.0 [facility] Comment on above: Performed By: #### H EMDF, PT, BMP3M, PHOS3, MG3, CK3 #### [address] [place] #### VD25H #### [facility] [address] [facility] [place] [address] MCH Entitic mass (RBC) 28.5 pg Normal 26.0-34.0 [facility] Comment on above: Performed By: #### H EMDF, PT, BMP3M, PHOS3, MG3, CK3 #### [address] #### VD25H #### [place] [address] [place] [address] MCHC mass conc (RBC) 33.8 % Normal 32.0-36.0 [facility] Comment on above: Performed By: #### H EMDF, PT, BMP3M, PHOS3, MG3, CK3 #### [address] [place], [place] #### VD25H #### [facility] [address] [place] [address] MCV Entitic volume (RBC) 84.4 fL Normal 80.0-98.0 [facility] Comment on above: Performed By: #### H EMDF, PT, BMP3M, PHOS3, MG3, CK3 #### [address] #### VD25H #### [facility] [address] [place] [address] Monocytes #/vol (Bld) 0.8 10*3/uL Normal 0.0-0.8 [facility] Comment on above: Performed By: #### H EMDF, PT, BMP3M, PHOS3, MG3, CK3 #### [address] [place], [place] #### VD25H #### [facility] [address] [place] [address] Monocytes/100 WBC (Bld) 8.3 % Normal 2.0-10.0 [facility] Comment on above: Performed By: #### H EMDF, PT, BMP3M, PHOS3, MG3, CK3 #### [address] [place], [place] #### VD25H #### [facility] [address] [place] [address] Platelet mean volume Entitic volume (Bld) 8.4 fL Normal 7.4-10.4 [facility] Comment on above: Performed By: #### H EMDF, PT, BMP3M, PHOS3, MG3, CK3 #### [address] #### VD25H #### [facility] [address] [place] [address] Platelets #/vol (Bld) 245 10*3/uL Normal 140-440 [facility] Comment on above: Performed By: #### H EMDF, PT, BMP3M, PHOS3, MG3, CK3 #### [address] #### VD25H #### [facility] [address] [place] [address] RBC #/vol (Bld) 3.21 10*6/uL Low 4.40-5.90 [facility] Comment on above: Performed By: #### H EMDF, PT, BMP3M, PHOS3, MG3, CK3 #### [address] #### VD25H #### [facility] [address] [place] [address] WBC #/vol (Bld) 9.7 10*3/uL Normal 3.6-10.7 [facility] Comment on above: Performed By: #### H EMDF, PT, BMP3M, PHOS3, MG3, CK3 #### [address] [place], [place] #### VD25H #### [facility] [address] [place] [address] Magnesiumon 08-16-2018 Magnesium mass conc 2.1 mg/dL Normal 1.6-2.3 [facility] Comment on above: Performed By: #### H EMDF, PT, BMP3M, PHOS3, MG3, CK3 #### [address] #### VD25H #### [facility] [address] [place] [address] Phosphoruson 08-16-2018 Phosphate mass conc 4.4 mg/dL Normal 2.5-4.5 [facility] Comment on above: Performed By: #### H EMDF, PT, BMP3M, PHOS3, MG3, CK3 #### [address] #### VD25H #### [facility] [address] [place] [address] Potassiumon 08-16-2018 Potassium molar conc 3.5 mmol/L Normal 3.5-5.1 [facility] Comment on above: Performed By: #### H EMDF, PT, BMP3M, PHOS3, MG3, CK3 #### [address] [address] [place] #### VD25H #### [facility] [address] [place] [address] Procalcitoninon 08-16-2018 Protein mass conc 3.10 ng/mL Abnormal <0.10 [facility] Comment on above: Performed By: #### H EMDF, PT, BMP3M, PHOS3, MG3, CK3 #### [address] #### VD25H #### [facility] [address] [place] [address] Prothrombin Timeon 9 INR Coag RelTime (PPP) [...] PT, BMP3M, PHOS3, MG3, CK3 #### [address] #### VD25H #### [facility] [address] [place] [address] Prothrombin time (PT) Coag time (PPP) 11.8 s Normal 9.0-12.0 [facility] Comment on above: Result Comment: . Performed By: #### H EMDF, PT, BMP3M, PHOS3, MG3, CK3 #### [address] #### VD25H #### [facility] [address] [place] [address] US Abdomen Limitedon 019 US Abdomen Limited Patient Name: KATHYA HOOPER Ultrasound Exam Date/Time 08/16/2018 19:12:00 EDT Exam US Abdomen Limited Ordering Physician [id number] ANNA Accession Number [id number] CPT4 Codes 14763 () Reason For Exam elevated transaminases Report [...] Transcribed Date and Time: 08/16/2018 7:26 Normal [facility] Glucose,Bedsideon 08-15-2018 Glucose mass conc 98 mg/dL Normal 70-100 [facility] Comment on above: Result Comment: Test performed by glucose meter. Results may be 10%-15% lower than serum/plasma values. (CLIA ID [id number]) Performed By: #### H EMDF, PT, BMP3M, PHOS3, MG3, CK3 #### [address] #### VD25H #### [facility] [address] [place] [address] Procalcitoninon 08-15-2018 Interpretation See Below Normal [facility] Comment on above: Result Comment: PCT <0.50 = Low risk of severe sepsis and/or septic shock. PCT >2.00 = High risk of severe sepsis and/or septic shock. Performed By: #### H EMDF, PT, BMP3M, PHOS3, MG3, CK3 #### [address] #### VD25H #### [facility] [address] [place] [address] CULTURE FUNGUSon 08-13-2018 CULTURE FUNGUS CULTURE FUNGUS --> Status: F No fungus isolated after 21 days. Normal [facility] Comment on above: Order Comment: Speci men Source Comment:Body Fluid Performed By: #### H EMDF, PT, BMP3M, PHOS3, MG3, CK3 #### [address] [place], [place] #### VD25H #### [facility] [address] [place] [address] Hemogram w/ Autodiffon 08-01 Abs Baso Cnt 0.2 10*3/uL Normal 0.0-0.2 [facility] Comment on above: Performed By: #### H EMDF, PT, BMP3M, PHOS3, MG3, CK3 #### [address] #### VD25H #### [facility] [address] [place] [address] Abs Neutrophile Cnt 14.3 10*3/uL High 1.8-7.0 [facility] Comment on above: Performed By: #### H EMDF, PT, BMP3M, PHOS3, MG3, CK3 #### [address] #### VD25H #### [facility] [address] [place] [address] Basophils/100 WBC (Bld) 1.0 % Normal 0.0-2.0 [facility] Comment on above: Performed By: #### H EMDF, PT, BMP3M, PHOS3, MG3, CK3 #### [address] [place], [place] #### VD25H #### [facility] [address] [place] [address] Eosinophils #/vol (Bld) 0.4 10*3/uL Normal 0.0-0.5 [facility] Comment on above: Performed By: #### H EMDF, PT, BMP3M, PHOS3, MG3, CK3 #### [address] #### VD25H #### [facility] [address] [place] [address] Eosinophils/100 WBC (Bld) 2.3 % Normal 1.0-6.0 [facility] Comment on above: Performed By: #### H EMDF, PT, BMP3M, PHOS3, MG3, CK3 #### [address] #### VD25H #### [facility] [address] [place] [address] Erythrocyte distribution width Ratio (RBC) 13.7 % Normal 11.5-14.5 [facility] Comment on above: Performed By: #### H EMDF, PT, BMP3M, PHOS3, MG3, CK3 #### [address] #### VD25H #### [facility] [address] [place] [address] Granulocytes/100 WBC (Bld) 82.1 % High 40.0-80.0 [facility] Comment on above: Performed By: #### H EMDF, PT, BMP3M, PHOS3, MG3, CK3 #### [address] #### VD25H #### [facility] [address] [place] [address] Hematocrit Volume Fraction (Bld) 31.2 % Low 40.0-52.0 [facility] Comment on above: Performed By: #### H EMDF, PT, BMP3M, PHOS3, MG3, CK3 #### [address] #### VD25H #### [facility] [address] [place] [address] Hemoglobin mass conc (Bld) 10.5 g/dL Low 13.0-18.0 [facility] Comment on above: Performed By: #### H EMDF, PT, BMP3M, PHOS3, MG3, CK3 #### [address] #### VD25H #### [facility] [address] [place] [address] Lymphocytes #/vol (Bld) 1.6 10*3/uL Normal 1.0-4.3 [facility] Comment on above: Performed By: #### H EMDF, PT, BMP3M, PHOS3, MG3, CK3 #### [address] #### VD25H #### [facility] [address] [place] [address] Lymphocytes/100 WBC (Bld) 9.1 % Low 20.0-40.0 [facility] Comment on above: Performed By: #### H EMDF, PT, BMP3M, PHOS3, MG3, CK3 #### [address] #### VD25H #### [place] [address] [place] [address] MCH Entitic mass (RBC) 28.9 pg Normal 26.0-34.0 [facility] Comment on above: Performed By: #### H EMDF, PT, BMP3M, PHOS3, MG3, CK3 #### [address] #### VD25H #### [facility] [address] [place] [address] MCHC mass conc (RBC) 33.7 % Normal 32.0-36.0 [facility] Comment on above: Performed By: #### H EMDF, PT, BMP3M, PHOS3, MG3, CK3 #### [address] #### VD25H #### [facility] [address] [place] [address] MCV Entitic volume (RBC) 85.5 fL Normal 80.0-98.0 [facility] Comment on above: Performed By: #### H EMDF, PT, BMP3M, PHOS3, MG3, CK3 #### [address] #### VD25H #### [facility] [address] [place] [address] Monocytes #/vol (Bld) 1.0 10*3/uL High 0.0-0.8 [facility] Comment on above: Performed By: #### H EMDF, PT, BMP3M, PHOS3, MG3, CK3 #### [address] [place] #### VD25H #### [facility] [address] [place] [address] Monocytes/100 WBC (Bld) 5.5 % Normal 2.0-10.0 [facility] Comment on above: Performed By: #### H EMDF, PT, BMP3M, PHOS3, MG3, CK3 #### [address] #### VD25H #### [facility] [address] [place] [address] Platelet mean volume Entitic volume (Bld) 8.0 fL Normal 7.4-10.4 [facility] Comment on above: Performed By: #### H EMDF, PT, BMP3M, PHOS3, MG3, CK3 #### [address] #### VD25H #### [facility] [address] [place] [address] Platelets #/vol (Bld) 425 10*3/uL Normal 140-440 [facility] Comment on above: Performed By: #### H EMDF, PT, BMP3M, PHOS3, MG3, CK3 #### [address] #### VD25H #### [facility] [facility] [address] [place] [address] RBC #/vol (Bld) 3.65 10*6/uL Low 4.40-5.90 [facility] Comment on above: Performed By: #### H EMDF, PT, BMP3M, PHOS3, MG3, CK3 #### [address] [place], [place] #### VD25H #### [facility] [address] [place] [address] WBC #/vol (Bld) 17.4 10*3/uL High 3.6-10.7 [facility] Comment on above: Performed By: #### H EMDF, PT, BMP3M, PHOS3, MG3, CK3 #### [address] #### VD25H #### [facility] [address] [place] [address] Basic Metabolic Panelon 04-0 Calcium mass conc 8.3 mg/dL Low 8.4-10.4 [facility] Comment on above: Performed By: #### H EMDF, PT, BMP3M, PHOS3, MG3, CK3 #### [address] #### VD25H #### [facility] [address] [place] [address] Glucose mass conc 114 mg/dL High 70-100 [facility] Comment on above: Performed By: #### H EMDF, PT, BMP3M, PHOS3, MG3, CK3 #### [address] #### VD25H #### [facility] [address] [place] [address] Anion gap molar conc 10 Normal [facility] Comment on above: Performed By: #### H EMDF, PT, BMP3M, PHOS3, MG3, CK3 #### [address] #### VD25H #### [facility] [address] [place] [address] CO2 molar conc 34 mmol/L High 22-30 [facility] Comment on above: Performed By: #### H EMDF, PT, BMP3M, PHOS3, MG3, CK3 #### [address] [place], [place] #### VD25H #### [facility] [address] [place] [address] Creatinine mass conc 0.52 mg/dL Normal 0.52-1.25 [facility] Comment on above: Performed By: #### H EMDF, PT, BMP3M, PHOS3, MG3, CK3 #### [address] [place], [place] #### VD25H #### [facility] [address] [place] [address] GFR/1.73 sq M predicted among blacks MDRD vol rate/area (S/P/Bld) mL/min/{1.73_m2} Normal >60 [facility] Comment on above: Performed By: #### H EMDF, PT, BMP3M, PHOS3, MG3, CK3 #### [address] #### VD25H #### [facility] [address] [place] [address] GFR/1.73 sq M predicted among non-blacks MDRD vol rate/area (S/P/Bld) mL/min/{1.73_m2} Normal >60 [facility] Comment on above: Result Comment: Sour ce- MDRD equation with creatinine calibration to IDMS(NKDEP) eGFR not recommended for drug dose adjustment Performed By: #### H EMDF, PT, BMP3M, PHOS3, MG3, CK3 #### [address] #### VD25H #### [facility] [address] [place] [address] Urea nitrogen mass conc 23 mg/dL High 7-20 [facility] Comment on above: Performed By: #### H EMDF, PT, BMP3M, PHOS3, MG3, CK3 #### [address] #### VD25H #### [place] [address] [place] [address] Chloride molar conc 95 mmol/L Low 98-107 [facility] Comment on above: Performed By: #### H EMDF, PT, BMP3M, PHOS3, MG3, CK3 #### [address] [place], [place] #### VD25H #### [place] [address] [place] [address] Potassium molar conc 3.7 mmol/L Normal 3.5-5.1 [facility] Comment on above: Performed By: #### H EMDF, PT, BMP3M, PHOS3, MG3, CK3 #### [address] [place], [place] #### VD25H #### [place] [address] [place] [address] Sodium molar conc 139 mmol/L Normal 135-145 [facility] Comment on above: Performed By: #### H EMDF, PT, BMP3M, PHOS3, MG3, CK3 #### [address] #### VD25H #### [place] [address] [place] [address] Hemogram w/ Autodiffon 07-31 Abs Baso Cnt 0.2 10*3/uL Normal 0.0-0.2 [facility] Comment on above: Performed By: #### H EMDF, PT, BMP3M, PHOS3, MG3, CK3 #### [address] [place], [place] #### VD25H #### [place] [address] [place] [address] Abs Neutrophile Cnt 13.4 10*3/uL High 1.8-7.0 [facility] Comment on above: Performed By: #### H EMDF, PT, BMP3M, PHOS3, MG3, CK3 #### [address] [place], [place] #### VD25H #### [facility] [address] [place] [address] Basophils/100 WBC (Bld) 1.0 % Normal 0.0-2.0 [facility] Comment on above: Performed By: #### H EMDF, PT, BMP3M, PHOS3, MG3, CK3 #### [facility] [address] [place], [place] #### VD25H #### [facility] [address] [place] [address] Eosinophils #/vol (Bld) 0.5 10*3/uL Normal 0.0-0.5 [facility] Comment on above: Performed By: #### H EMDF, PT, BMP3M, PHOS3, MG3, CK3 #### [address] [place], [place] #### VD25H #### [facility] [address] [place] [address] Eosinophils/100 WBC (Bld) 3.1 % Normal 1.0-6.0 [facility] Comment on above: Performed By: #### H EMDF, PT, BMP3M, PHOS3, MG3, CK3 #### [address] [place] #### VD25H #### [facility] [address] [place] [address] Erythrocyte distribution width Ratio (RBC) 14.0 % Normal 11.5-14.5 [facility] Comment on above: Performed By: #### H EMDF, PT, BMP3M, PHOS3, MG3, CK3 #### [address] [place] #### VD25H #### [facility] [address] [place] [address] Granulocytes/100 WBC (Bld) 80.6 % High 40.0-80.0 [facility] Comment on above: Performed By: #### H EMDF, PT, BMP3M, PHOS3, MG3, CK3 #### [address] #### VD25H #### [facility] [address] [place] [address] Hematocrit Volume Fraction (Bld) 32.3 % Low 40.0-52.0 [facility] Comment on above: Performed By: #### H EMDF, PT, BMP3M, PHOS3, MG3, CK3 #### [address] [place], [place] #### VD25H #### [facility] [address] [place] [address] Hemoglobin mass conc (Bld) 10.8 g/dL Low 13.0-18.0 [facility] Comment on above: Performed By: #### H EMDF, PT, BMP3M, PHOS3, MG3, CK3 #### [address] #### VD25H #### [facility] [address] [place] [address] Lymphocytes #/vol (Bld) 1.6 10*3/uL Normal 1.0-4.3 [facility] Comment on above: Performed By: #### H EMDF, PT, BMP3M, PHOS3, MG3, CK3 #### [address] #### VD25H #### [facility] [address] [place] [address] Lymphocytes/100 WBC (Bld) 9.8 % Low 20.0-40.0 [facility] Comment on above: Performed By: #### H EMDF, PT, BMP3M, PHOS3, MG3, CK3 #### [address] #### VD25H #### [facility] [address] [place] [address] MCH Entitic mass (RBC) 28.9 pg Normal 26.0-34.0 [facility] Comment on above: Performed By: #### H EMDF, PT, BMP3M, PHOS3, MG3, CK3 #### [address] #### VD25H #### [facility] [address] [place] [address] MCHC mass conc (RBC) 33.6 % Normal 32.0-36.0 [facility] Comment on above: Performed By: #### H EMDF, PT, BMP3M, PHOS3, MG3, CK3 #### [address] #### VD25H #### [facility] [address] [place] [address] MCV Entitic volume (RBC) 86.1 fL Normal 80.0-98.0 [facility] Comment on above: Performed By: #### H EMDF, PT, BMP3M, PHOS3, MG3, CK3 #### [address] #### VD25H #### [place] [address] [place] [address] Monocytes #/vol (Bld) 0.9 10*3/uL High 0.0-0.8 [facility] Comment on above: Performed By: #### H EMDF, PT, BMP3M, PHOS3, MG3, CK3 #### [address] #### VD25H #### [place] [address] [place] [address] Monocytes/100 WBC (Bld) 5.5 % Normal 2.0-10.0 [facility] Comment on above: Performed By: #### H EMDF, PT, BMP3M, PHOS3, MG3, CK3 #### [address] #### VD25H #### [facility] [address] [place] [address] Platelet mean volume Entitic volume (Bld) 8.2 fL Normal 7.4-10.4 [facility] Comment on above: Performed By: #### H EMDF, PT, BMP3M, PHOS3, MG3, CK3 #### [facility] [address] [place] #### VD25H #### [facility] [address] [place] [address] Platelets #/vol (Bld) 475 10*3/uL High 140-440 [facility] Comment on above: Performed By: #### H EMDF, PT, BMP3M, PHOS3, MG3, CK3 #### [address] [place], [place] #### VD25H #### [facility] [address] [place] [address] RBC #/vol (Bld) 3.75 10*6/uL Low 4.40-5.90 [facility] Comment on above: Performed By: #### H EMDF, PT, BMP3M, PHOS3, MG3, CK3 #### [address] #### VD25H #### [facility] [address] [place] [address] WBC #/vol (Bld) 16.6 10*3/uL High 3.6-10.7 [facility] Comment on above: Performed By: #### H EMDF, PT, BMP3M, PHOS3, MG3, CK3 #### [address] [place], [place] #### VD25H #### [facility] [address] [place] [address] Magnesiumon 07-31-2018 Magnesium mass conc 2.4 mg/dL High 1.6-2.3 [facility] Comment on above: Performed By: #### H EMDF, PT, BMP3M, PHOS3, MG3, CK3 #### [address] #### VD25H #### [facility] [address] [place] [address] Phosphoruson 07-31-2018 Phosphate mass conc 4.5 mg/dL Normal 2.5-4.5 [facility] Comment on above: Performed By: #### H EMDF, PT, BMP3M, PHOS3, MG3, CK3 #### [address] [place], [place] #### VD25H #### [facility] [address] [place] [address] Basic Metabolic Panelon Calcium mass conc 8.6 mg/dL Normal 8.4-10.4 [facility] Comment on above: Performed By: #### H EMDF, PT, BMP3M, PHOS3, MG3, CK3 #### [address] [address] [place] #### VD25H #### [facility] [address] [place] [address] Anion gap molar conc 8 Normal [facility] Comment on above: Performed By: #### H EMDF, PT, BMP3M, PHOS3, MG3, CK3 #### [address] #### VD25H #### [facility] [address] [place] [address] CO2 molar conc 34 mmol/L High 22-30 [facility] Comment on above: Performed By: #### H EMDF, PT, BMP3M, PHOS3, MG3, CK3 #### [address] [place] #### VD25H #### [facility] [address] [place] [address] Creatinine mass conc 0.56 mg/dL Normal 0.52-1.25 [facility] Comment on above: Performed By: #### H EMDF, PT, BMP3M, PHOS3, MG3, CK3 #### [address] [address] [place] #### VD25H #### [facility] [address] [place] [address] GFR/1.73 sq M predicted among blacks MDRD vol rate/area (S/P/Bld) mL/min/{1.73_m2} Normal >60 [facility] Comment on above: Performed By: #### H EMDF, PT, BMP3M, PHOS3, MG3, CK3 #### [address] #### VD25H #### [facility] [address] [place] [address] GFR/1.73 sq M predicted among non-blacks MDRD vol rate/area (S/P/Bld) mL/min/{1.73_m2} Normal >60 [facility] Comment on above: Result Comment: Sour ce- MDRD equation with creatinine calibration to IDMS(NKDEP) eGFR not recommended for drug dose adjustment Performed By: #### H EMDF, PT, BMP3M, PHOS3, MG3, CK3 #### [address] #### VD25H #### [facility] [address] [place] [address] Glucose mass conc 121 mg/dL High 70-100 [facility] Comment on above: Performed By: #### H EMDF, PT, BMP3M, PHOS3, MG3, CK3 #### [address] #### VD25H #### [facility] [address] [place] [address] Urea nitrogen mass conc 29 mg/dL High 7-20 [facility] Comment on above: Performed By: #### H EMDF, PT, BMP3M, PHOS3, MG3, CK3 #### [address] #### VD25H #### [facility] [address] [place] [address] Chloride molar conc 99 mmol/L Normal 98-107 [facility] Comment on above: Performed By: #### H EMDF, PT, BMP3M, PHOS3, MG3, CK3 #### [facility] [address] [place] [address] #### VD25H #### [facility] [address] [place] [address] Potassium molar conc 3.7 mmol/L Normal 3.5-5.1 [facility] Comment on above: Performed By: #### H EMDF, PT, BMP3M, PHOS3, MG3, CK3 #### [facility] [address] [place] [address] #### VD25H #### [facility] [address] [place] [address] Sodium molar conc 141 mmol/L Normal 135-145 [facility] Comment on above: Performed By: #### H EMDF, PT, BMP3M, PHOS3, MG3, CK3 #### [facility] [address] [place] #### VD25H #### [facility] [address] [place] [address] CR Abdomen APon 07-30-2018 CR Abdomen AP Patient Name: KATHYA HOOPER Diagnostic Radiology Exam Date/Time 07/30/2018 10:28:42 EDT Exam CR Abdomen AP Ordering Physician [id number] GUNN Accession Number [id number] CPT4 Codes 71628 () Reason For Exam abd distension Report [...] Final Dictated: 07/30/2018 3:57 pm Dictating Physician: EL-SHAMD WISEMAN AHMAD Signed Date and Time: 07/30/2018 4:01 pm Signed by: MD CANCINO AHMAD Transcribed Date and Time: 07/30/2018 3:57 Normal [facility] CR Chest Portableon 07-31-19 CR Chest Portable Patient Name: KATHYA HOOPER Diagnostic Radiology Exam Date/Time 07/30/2018 12:28:13 EDT Exam CR Chest Portable Ordering Physician SALO DAVIS Accession Number [id number] CPT4 Codes 70855 () Reason For Exam line reposition Report [...] Transcribed Date and Time: 07/30/2018 1:32 Normal [facility] CR Chest Portable Patient Name: KATHYA HOOPER Diagnostic Radiology Exam Date/Time 07/30/2018 06:40:08 EDT Exam CR Chest Portable Ordering Physician MARIA EUGENIA PEREZ Accession Number [id number] CPT4 Codes 87622 () Reason For Exam ETT placement Report [...] Transcribed Date and Time: 07/30/2018 10:26 Normal [facility] Glucose,Bedsideon 07-30-2018 Glucose mass conc 125 mg/dL High 70-100 [facility] Comment on above: Result Comment: Test performed by glucose meter. Results may be 10%-15% lower than serum/plasma values. (CLIA ID [id number]) Performed By: #### H EMDF, PT, BMP3M, PHOS3, MG3, CK3 #### [facility] [address] [place] [address] #### VD25H #### [facility] [address] [place] [address] Glucose mass conc 117 mg/dL High 70-100 [facility] Comment on above: Result Comment: Test performed by glucose meter. Results may be 10%-15% lower than serum/plasma values. (CLIA ID [id number]) Performed By: #### H EMDF, PT, BMP3M, PHOS3, MG3, CK3 #### [facility] [address] [place] [address] #### VD25H #### [facility] [address] [place] [address] Glucose mass conc 44 mg/dL Low 70-100 [facility] Comment on above: Result Comment: Repe ated Test; Test performed by glucose meter. Results may be 10%-15% lower than serum/plasma values. (CLIA ID [id number]) Performed By: #### H EMDF, PT, BMP3M, PHOS3, MG3, CK3 #### [facility] [address] [place], [place] #### VD25H #### [facility] [address] [place] [address] Hemogram w/ Autodiffon 07-30 Abs Baso Cnt 0.2 10*3/uL Normal 0.0-0.2 [facility] Comment on above: Performed By: #### H EMDF, PT, BMP3M, PHOS3, MG3, CK3 #### [address] #### VD25H #### [facility] [address] [place] [address] Abs Neutrophile Cnt 13.2 10*3/uL High 1.8-7.0 [facility] Comment on above: Performed By: #### H EMDF, PT, BMP3M, PHOS3, MG3, CK3 #### [address] #### VD25H #### [facility] [address] [place] [address] Basophils/100 WBC (Bld) 0.9 % Normal 0.0-2.0 [facility] Comment on above: Performed By: #### H EMDF, PT, BMP3M, PHOS3, MG3, CK3 #### [address] [place], [place] #### VD25H #### [facility] [address] [place] [address] Eosinophils #/vol (Bld) 0.5 10*3/uL Normal 0.0-0.5 [facility] Comment on above: Performed By: #### H EMDF, PT, BMP3M, PHOS3, MG3, CK3 #### [address] #### VD25H #### [facility] [address] [place] [address] Eosinophils/100 WBC (Bld) 2.8 % Normal 1.0-6.0 [facility] Comment on above: Performed By: #### H EMDF, PT, BMP3M, PHOS3, MG3, CK3 #### [address] #### VD25H #### [facility] [address] [place] [address] Erythrocyte distribution width Ratio (RBC) 13.7 % Normal 11.5-14.5 [facility] Comment on above: Performed By: #### H EMDF, PT, BMP3M, PHOS3, MG3, CK3 #### [address] #### VD25H #### [facility] [address] [place] [address] Granulocytes/100 WBC (Bld) 76.6 % Normal 40.0-80.0 [facility] Comment on above: Performed By: #### H EMDF, PT, BMP3M, PHOS3, MG3, CK3 #### [address] #### VD25H #### [facility] [address] [place] [address] Hematocrit Volume Fraction (Bld) 31.4 % Low 40.0-52.0 [facility] Comment on above: Performed By: #### H EMDF, PT, BMP3M, PHOS3, MG3, CK3 #### [address] #### VD25H #### [facility] [address] [place] [address] Hemoglobin mass conc (Bld) 10.6 g/dL Low 13.0-18.0 [facility] Comment on above: Performed By: #### H EMDF, PT, BMP3M, PHOS3, MG3, CK3 #### [address] #### VD25H #### [facility] [address] [place] [address] Lymphocytes #/vol (Bld) 2.2 10*3/uL Normal 1.0-4.3 [facility] Comment on above: Performed By: #### H EMDF, PT, BMP3M, PHOS3, MG3, CK3 #### [address] #### VD25H #### [facility] [address] [place] [address] Lymphocytes/100 WBC (Bld) 12.9 % Low 20.0-40.0 [facility] Comment on above: Performed By: #### H EMDF, PT, BMP3M, PHOS3, MG3, CK3 #### [address] #### VD25H #### [place] [address] [place] [address] MCH Entitic mass (RBC) 29.2 pg Normal 26.0-34.0 [facility] Comment on above: Performed By: #### H EMDF, PT, BMP3M, PHOS3, MG3, CK3 #### [address] #### VD25H #### [place] [address] [place] [address] MCHC mass conc (RBC) 33.8 % Normal 32.0-36.0 [facility] Comment on above: Performed By: #### H EMDF, PT, BMP3M, PHOS3, MG3, CK3 #### [address] #### VD25H #### [facility] [address] [place] [address] MCV Entitic volume (RBC) 86.4 fL Normal 80.0-98.0 [facility] Comment on above: Performed By: #### H EMDF, PT, BMP3M, PHOS3, MG3, CK3 #### [address] #### VD25H #### [facility] [address] [place] [address] Monocytes #/vol (Bld) 1.2 10*3/uL High 0.0-0.8 [facility] Comment on above: Performed By: #### H EMDF, PT, BMP3M, PHOS3, MG3, CK3 #### [address] [place], [place] #### VD25H #### [facility] [address] [place] [address] Monocytes/100 WBC (Bld) 6.8 % Normal 2.0-10.0 [facility] Comment on above: Performed By: #### H EMDF, PT, BMP3M, PHOS3, MG3, CK3 #### [address] #### VD25H #### [facility] [address] [place] [address] Platelet mean volume Entitic volume (Bld) 8.1 fL Normal 7.4-10.4 [facility] Comment on above: Performed By: #### H EMDF, PT, BMP3M, PHOS3, MG3, CK3 #### [address] #### VD25H #### [facility] [address] [place] [address] Platelets #/vol (Bld) 507 10*3/uL High 140-440 [facility] Comment on above: Performed By: #### H EMDF, PT, BMP3M, PHOS3, MG3, CK3 #### [address] #### VD25H #### [facility] [address] [place] [address] RBC #/vol (Bld) 3.64 10*6/uL Low 4.40-5.90 [facility] Comment on above: Performed By: #### H EMDF, PT, BMP3M, PHOS3, MG3, CK3 #### [facility] [address] [place], [place] #### VD25H #### [facility] [address] [place] [address] WBC #/vol (Bld) 17.2 10*3/uL High 3.6-10.7 [facility] Comment on above: Performed By: #### H EMDF, PT, BMP3M, PHOS3, MG3, CK3 #### [address] [place], [place] #### VD25H #### [facility] [address] [place] [address] Magnesiumon 07-30-2018 Magnesium mass conc 2.5 mg/dL High 1.6-2.3 [facility] Comment on above: Performed By: #### H EMDF, PT, BMP3M, PHOS3, MG3, CK3 #### [facility] [place] [address] [place], [place] #### VD25H #### [facility] [address] [facility] [place] [address] Phosphoruson 07-30-2018 Phosphate mass conc 4.5 mg/dL Normal 2.5-4.5 [facility] Comment on above: Performed By: #### H EMDF, PT, BMP3M, PHOS3, MG3, CK3 #### [facility] [address] #### VD25H #### [facility] [address] [place] [address] VL Venous Duplex US Lower Ex t Bilateralon 07-30-2018 VL Venous Duplex US Lower Ext Bilateral Patient Name: KATHYA HOOPER Ultrasound Exam Date/Time 07/30/2018 12:27:47 EDT Exam VL Venous Duplex US Lower Ext Bilateral Ordering Physician ETIENNE MARTÍNEZ JULIE Accession Number [id number] CPT4 Codes 07831 () Reason For Exam edema Report [facility] --- Lower Extremity Venous Duplex Report Patient Name: Kathya Hooper : 1955 Study Date: 07/30/2018 W (63yrs) Age: 63 Account: [id number] Gender: M Loc: [id number] BP: Ordering: Yesenia Martínez Technologist: Ordering Physician: Yesenia Martínez Patient Registration Supervisor: Barbara Suarez RDMS, T Interpreting Physician: Krysta Arora --- Location: [facility] --- INDICATIONS: Edema. --- CONCLUSIONS [...] performed. The images were obtained using a EverTrue E9 vascular ultrasound machine. --- VENOUS FLOW [...] ---------+-------+--- --+ Electronically signed by: Krysta Arora [id number] Final Dictated: 07/30/2018 1:30 pm Dictating Physician: KRYSTA ARORA Signed Date and Time: 07/30/2018 1:29 pm Signed by: KRYSTA ARORA Normal [facility] Arterial Blood Gaseson 07-29 CO2 molar conc 34.4 mmol/L High 23.0-27.0 [facility] Comment on above: Performed By: #### H EMDF, PT, BMP3M, PHOS3, MG3, CK3 #### [facility] [address] [place] [address] #### VD25H #### [facility] [address] [place] [address] HCO3 molar conc (Bld) 33.0 mmol/L High 21.0-25.0 [facility] Comment on above: Performed By: #### H EMDF, PT, BMP3M, PHOS3, MG3, CK3 #### [facility] [address] [place] [address] #### VD25H #### [facility] [address] [place] [address] Hemoglobin mass conc (Bld) 11.5 g/dL Normal ScreenOnly [facility] Comment on above: Performed By: #### H EMDF, PT, BMP3M, PHOS3, MG3, CK3 #### [facility] [address] [place], [place] #### VD25H #### [facility] [address] [place] [address] Oxygen ppres (Bld) 84.2 mm[Hg] Normal 80.0-100.0 [facility] Comment on above: Performed By: #### H EMDF, PT, BMP3M, PHOS3, MG3, CK3 #### [address] [place], [place] #### VD25H #### [facility] [address] [place] [address] Oxygen saturation in Blood 96.2 % Normal 95.0-100.0 [facility] Comment on above: Performed By: #### H EMDF, PT, BMP3M, PHOS3, MG3, CK3 #### [address] #### VD25H #### [facility] [address] [place] [address] pCO2 46.8 mm[Hg] High 35.0-45.0 [facility] Comment on above: Performed By: #### H EMDF, PT, BMP3M, PHOS3, MG3, CK3 #### [address] #### VD25H #### [facility] [address] [place] [address] pH (Bld) 7.466 High 7.350-7.450 [facility] Comment on above: Performed By: #### H EMDF, PT, BMP3M, PHOS3, MG3, CK3 #### [address] [place], [place] #### VD25H #### [facility] [address] [place] [address] Std Base Excess 8.2 mmol/L High -3.0-3.0 [facility] Comment on above: Performed By: #### H EMDF, PT, BMP3M, PHOS3, MG3, CK3 #### [address] [place], [place] #### VD25H #### [facility] [address] [place] [address] FIO2 .30 Normal [facility] Comment on above: Performed By: #### H EMDF, PT, BMP3M, PHOS3, MG3, CK3 #### [place] [place], [place] #### VD25H #### [facility] [address] [place] [address] Basic Metabolic Panelon 03-3 Calcium mass conc 8.5 mg/dL Normal 8.4-10.4 [facility] Comment on above: Performed By: #### H EMDF, PT, BMP3M, PHOS3, MG3, CK3 #### [address] #### VD25H #### [facility] [address] [place] [address] Glucose mass conc 163 mg/dL High 70-100 [facility] Comment on above: Performed By: #### H EMDF, PT, BMP3M, PHOS3, MG3, CK3 #### [address] [address] [place], [place] #### VD25H #### [facility] [address] [place] [address] Anion gap molar conc 10 Normal [facility] Comment on above: Performed By: #### H EMDF, PT, BMP3M, PHOS3, MG3, CK3 #### [address] [address] [facility], [place] #### VD25H #### [facility] [address] [place] [address] CO2 molar conc 37 mmol/L High 22-30 [facility] Comment on above: Performed By: #### H EMDF, PT, BMP3M, PHOS3, MG3, CK3 #### [address] [address] [facility], [place] #### VD25H #### [facility] [address] [place] [address] Creatinine mass conc 0.57 mg/dL Normal 0.52-1.25 [facility] Comment on above: Performed By: #### H EMDF, PT, BMP3M, PHOS3, MG3, CK3 #### [address] #### VD25H #### [facility] [address] [place] [address] GFR/1.73 sq M predicted among blacks MDRD vol rate/area (S/P/Bld) mL/min/{1.73_m2} Normal >60 [facility] Comment on above: Performed By: #### H EMDF, PT, BMP3M, PHOS3, MG3, CK3 #### [address] #### VD25H #### [place] [address] [place] [address] GFR/1.73 sq M predicted among non-blacks MDRD vol rate/area (S/P/Bld) mL/min/{1.73_m2} Normal >60 [facility] Comment on above: Result Comment: Sour ce- MDRD equation with creatinine calibration to IDMS(NKDEP) eGFR not recommended for drug dose adjustment Performed By: #### H EMDF, PT, BMP3M, PHOS3, MG3, CK3 #### [address] #### VD25H #### [facility] [address] [place] [address] Urea nitrogen mass conc 30 mg/dL High 7-20 [facility] Comment on above: Performed By: #### H EMDF, PT, BMP3M, PHOS3, MG3, CK3 #### [address] #### VD25H #### [facility] [address] [place] [address] Chloride molar conc 95 mmol/L Low 98-107 [facility] Comment on above: Performed By: #### H EMDF, PT, BMP3M, PHOS3, MG3, CK3 #### [facility] [address] [place] [address] #### VD25H #### [facility] [address] [place] [address] Potassium molar conc 3.3 mmol/L Low 3.5-5.1 [facility] Comment on above: Performed By: #### H EMDF, PT, BMP3M, PHOS3, MG3, CK3 #### [facility] [address] [place] #### VD25H #### [facility] [address] [place] [address] Sodium molar conc 141 mmol/L Normal 135-145 [facility] Comment on above: Performed By: #### H EMDF, PT, BMP3M, PHOS3, MG3, CK3 #### [facility] [address] [place] [address] #### VD25H #### [facility] [address] [place] [address] CR Chest Portableon 07-30-19 19 CR Chest Portable Patient Name: KATHYA HOOPER Diagnostic Radiology Exam Date/Time 07/29/2018 07:01:44 EDT Exam CR Chest Portable Ordering Physician MARIA EUGENIA PEREZ Accession Number [id number] CPT4 Codes 76337 () Reason For Exam ETT placement Report [...] Dictated: 07/29/2018 9:04 am Dictating Physician: MD NIKKI, CRAIG ALVARENGA Signed Date and Time: 07/29/2018 9:13 am Signed by: MD JORDAN YUN ROBERT Transcribed Date and Time: 07/29/2018 9:04 [facility] Glucose,Bedsideon 07-29-2018 Glucose mass conc 124 mg/dL High 70-100 [facility] Comment on above: Result Comment: Test performed by glucose meter. Results may be 10%-15% lower than serum/plasma values. (CLIA ID [id number]) Performed By: #### H EMDF, PT, BMP3M, PHOS3, MG3, CK3 #### [facility] [address] [place] [address] #### VD25H #### [facility] [address] [place] [address] Glucose mass conc 175 mg/dL High 70-100 [facility] Comment on above: Result Comment: Test performed by glucose meter. Results may be 10%-15% lower than serum/plasma values. (CLIA ID [id number]) Performed By: #### H EMDF, PT, BMP3M, PHOS3, MG3, CK3 #### [facility] [address] [place], [place] #### VD25H #### [facility] [address] [place] [address] Glucose mass conc 138 mg/dL High 70-100 [facility] Comment on above: Result Comment: Test performed by glucose meter. Results may be 10%-15% lower than serum/plasma values. (CLIA ID [id number]) Performed By: #### H EMDF, PT, BMP3M, PHOS3, MG3, CK3 #### [facility] [address] [place], [place] #### VD25H #### [facility] [address] [place] [address] Glucose mass conc 147 mg/dL High 70-100 [facility] Comment on above: Result Comment: Test performed by glucose meter. Results may be 10%-15% lower than serum/plasma values. (CLIA ID [id number]) Performed By: #### H EMDF, PT, BMP3M, PHOS3, MG3, CK3 #### [address] [address] [place], [place] #### VD25H #### [facility] [address] [place] [address] Hemogram w/ Autodiffon 07-29 Erythrocyte distribution width Ratio (RBC) 13.8 % Normal 11.5-14.5 [facility] Comment on above: Performed By: #### H EMDF, PT, BMP3M, PHOS3, MG3, CK3 #### [address] #### VD25H #### [facility] [address] [place] [address] Hematocrit Volume Fraction (Bld) 32.9 % Low 40.0-52.0 [facility] Comment on above: Performed By: #### H EMDF, PT, BMP3M, PHOS3, MG3, CK3 #### [address] #### VD25H #### [facility] [address] [place] [address] Hemoglobin mass conc (Bld) 11.0 g/dL Low 13.0-18.0 [facility] Comment on above: Performed By: #### H EMDF, PT, BMP3M, PHOS3, MG3, CK3 #### [address] #### VD25H #### [facility] [address] [place] [address] MCH Entitic mass (RBC) 29.0 pg Normal 26.0-34.0 [facility] Comment on above: Performed By: #### H EMDF, PT, BMP3M, PHOS3, MG3, CK3 #### [address] #### VD25H #### [facility] [address] [place] [address] MCHC mass conc (RBC) 33.6 % Normal 32.0-36.0 [facility] Comment on above: Performed By: #### H EMDF, PT, BMP3M, PHOS3, MG3, CK3 #### [address] #### VD25H #### [facility] [address] [place] [address] MCV Entitic volume (RBC) 86.3 fL Normal 80.0-98.0 [facility] Comment on above: Performed By: #### H EMDF, PT, BMP3M, PHOS3, MG3, CK3 #### [address] #### VD25H #### [place] [address] [place] [address] Platelet mean volume Entitic volume (Bld) 8.1 fL Normal 7.4-10.4 [facility] Comment on above: Performed By: #### H EMDF, PT, BMP3M, PHOS3, MG3, CK3 #### [address] #### VD25H #### [facility] [address] [place] [address] Platelets #/vol (Bld) 501 10*3/uL High 140-440 [facility] Comment on above: Performed By: #### H EMDF, PT, BMP3M, PHOS3, MG3, CK3 #### [address] #### VD25H #### [facility] [address] [place] [address] RBC #/vol (Bld) 3.81 10*6/uL Low 4.40-5.90 [facility] Comment on above: Performed By: #### H EMDF, PT, BMP3M, PHOS3, MG3, CK3 #### [address] #### VD25H #### [facility] [address] [place] [address] WBC #/vol (Bld) 20.8 10*3/uL High 3.6-10.7 [facility] Comment on above: Performed By: #### H EMDF, PT, BMP3M, PHOS3, MG3, CK3 #### [address] [place], [place] #### VD25H #### [facility] [address] [place] [address] Magnesiumon 07-29-2018 Magnesium mass conc 2.5 mg/dL High 1.6-2.3 [facility] Comment on above: Performed By: #### H EMDF, PT, BMP3M, PHOS3, MG3, CK3 #### [address] #### VD25H #### [place] [address] [place] [address] Manual Diffon 07-29-2018 Abs Neutrophile Cnt 17.3 10*3/uL High 2.2-8.2 [facility] Comment on above: Performed By: #### H EMDF, PT, BMP3M, PHOS3, MG3, CK3 #### [address] #### VD25H #### [facility] [address] [place] [address] Bands 1 % Normal 0-3 [facility] Comment on above: Performed By: #### H EMDF, PT, BMP3M, PHOS3, MG3, CK3 #### [address] #### VD25H #### [facility] [address] [place] [address] Eosinophils #/vol (Bld) 0.6 10*3/uL High 0.0-0.5 [facility] Comment on above: Performed By: #### H EMDF, PT, BMP3M, PHOS3, MG3, CK3 #### [facility] [address] [place], [place] #### VD25H #### [facility] [address] [place] [address] Eosinophils/100 WBC (Bld) 3 % Normal 1-6 [facility] Comment on above: Performed By: #### H EMDF, PT, BMP3M, PHOS3, MG3, CK3 #### [address] [place] #### VD25H #### [facility] [address] [place] [address] Lymphocytes #/vol (Bld) 2.3 10*3/uL Normal 1.1-4.5 [facility] Comment on above: Performed By: #### H EMDF, PT, BMP3M, PHOS3, MG3, CK3 #### [address] [address] [place] #### VD25H #### [facility] [address] [place] [address] Lymphocytes/100 WBC (Bld) 11 % Low 20-40 [facility] Comment on above: Performed By: #### H EMDF, PT, BMP3M, PHOS3, MG3, CK3 #### [address] [place] #### VD25H #### [facility] [address] [place] [address] Metamyelocytes 1 % Abnormal <1 [facility] Comment on above: Performed By: #### H EMDF, PT, BMP3M, PHOS3, MG3, CK3 #### [address] [place] #### VD25H #### [facility] [address] [place] [address] Monocytes #/vol (Bld) 0.4 10*3/uL Normal 0.2-1.1 [facility] Comment on above: Performed By: #### H EMDF, PT, BMP3M, PHOS3, MG3, CK3 #### [facility] [address] [place], [place] #### VD25H #### [facility] [address] [place] [address] Monocytes/100 WBC (Bld) 2 % Normal 2-10 [facility] Comment on above: Performed By: #### H EMDF, PT, BMP3M, PHOS3, MG3, CK3 #### [facility] [address] [place], [place] #### VD25H #### [facility] [address] [place] [address] RBC morphology finding Nom (Bld) See Prev Normal [facility] Comment on above: Performed By: #### H EMDF, PT, BMP3M, PHOS3, MG3, CK3 #### [address] [place] #### VD25H #### [facility] [address] [place] [address] Seg Neutrophils 82 % High 40-80 [facility] Comment on above: Performed By: #### H EMDF, PT, BMP3M, PHOS3, MG3, CK3 #### [address] [place] #### VD25H #### [facility] [address] [place] [address] Abs Baso Cnt 0.0 10*3/uL Normal 0.0-0.2 [facility] Comment on above: Performed By: #### H EMDF, PT, BMP3M, PHOS3, MG3, CK3 #### [address] [place] #### VD25H #### [facility] [address] [place] [address] Basophils/100 WBC (Bld) 0 % Normal 0-2 [facility] Comment on above: Performed By: #### H EMDF, PT, BMP3M, PHOS3, MG3, CK3 #### [address] [place] #### VD25H #### [facility] [address] [place] [address] Cells counted 100 Normal [facility] Comment on above: Performed By: #### H EMDF, PT, BMP3M, PHOS3, MG3, CK3 #### [facility] [address] [place] #### VD25H #### [facility] [address] [place] [address] Phosphoruson 07-29-2018 Phosphate mass conc 4.2 mg/dL Normal 2.5-4.5 [facility] Comment on above: Performed By: #### H EMDF, PT, BMP3M, PHOS3, MG3, CK3 #### [address] [place] #### VD25H #### [place] [address] [place] [address] Procalcitoninon 07-29-2018 Protein mass conc 0.11 ng/mL Abnormal <0.10 [facility] Comment on above: Performed By: #### H EMDF, PT, BMP3M, PHOS3, MG3, CK3 #### [address] [place] #### VD25H #### [facility] [address] [place] [address] Interpretation See Below Normal [facility] Comment on above: Result Comment: PCT <0.50 = Low risk of severe sepsis and/or septic shock. PCT >2.00 = High risk of severe sepsis and/or septic shock. Performed By: #### H EMDF, PT, BMP3M, PHOS3, MG3, CK3 #### [address] [place] #### VD25H #### [facility] [address] [place] [address] Vancomycin Troughon 07-30-19 19 Vancomycin Trough 12.2 ug/mL Low 15.0-20.0 [facility] Comment on above: Result Comment: . Performed By: #### H EMDF, PT, BMP3M, PHOS3, MG3, CK3 #### [address] [place] #### VD25H #### [facility] [address] [place] [address] Basic Metabolic Panelon 03-3 Calcium mass conc 8.6 mg/dL Normal 8.4-10.4 [facility] Comment on above: Performed By: #### H EMDF, PT, BMP3M, PHOS3, MG3, CK3 #### [address] [address] [place] #### VD25H #### [facility] [address] [place] [address] Glucose mass conc 158 mg/dL High 70-100 [facility] Comment on above: Performed By: #### H EMDF, PT, BMP3M, PHOS3, MG3, CK3 #### [address] [address] [address] [facility], [place] #### VD25H #### [facility] [address] [place] [address] Urea nitrogen mass conc 29 mg/dL High 7-20 [facility] Comment on above: Performed By: #### H EMDF, PT, BMP3M, PHOS3, MG3, CK3 #### [address] [address] [place] #### VD25H #### [facility] [address] [place] [address] Anion gap molar conc 9 Normal [facility] Comment on above: Performed By: #### H EMDF, PT, BMP3M, PHOS3, MG3, CK3 #### [address] [place] #### VD25H #### [facility] [address] [place] [address] CO2 molar conc 32 mmol/L High 22-30 [facility] Comment on above: Performed By: #### H EMDF, PT, BMP3M, PHOS3, MG3, CK3 #### [address] [place], [place] #### VD25H #### [facility] [address] [place] [address] Creatinine mass conc 0.61 mg/dL Normal 0.52-1.25 [facility] [facility] Comment on above: Performed By: #### H EMDF, PT, BMP3M, PHOS3, MG3, CK3 #### [address] [place] #### VD25H #### [facility] [address] [place] [address] GFR/1.73 sq M predicted among blacks MDRD vol rate/area (S/P/Bld) mL/min/{1.73_m2} Normal >60 [facility] Comment on above: Performed By: #### H EMDF, PT, BMP3M, PHOS3, MG3, CK3 #### [address] #### VD25H #### [facility] [address] [place] [address] GFR/1.73 sq M predicted among non-blacks MDRD vol rate/area (S/P/Bld) mL/min/{1.73_m2} Normal >60 [facility] Comment on above: Result Comment: Sour ce- MDRD equation with creatinine calibration to IDMS(NKDEP) eGFR not recommended for drug dose adjustment Performed By: #### H EMDF, PT, BMP3M, PHOS3, MG3, CK3 #### [address] #### VD25H #### [facility] [address] [place] [address] Potassium molar conc 3.6 mmol/L Normal 3.5-5.1 [place] [facility] Comment on above: Performed By: #### H EMDF, PT, BMP3M, PHOS3, MG3, CK3 #### [address] #### VD25H #### [facility] [address] [place] [address] Chloride molar conc 100 mmol/L Normal 98-107 [facility] Comment on above: Performed By: #### H EMDF, PT, BMP3M, PHOS3, MG3, CK3 #### [facility] [address] [place], [place] #### VD25H #### [facility] [address] [place] [address] Sodium molar conc 141 mmol/L Normal 135-145 [facility] Comment on above: Performed By: #### H EMDF, PT, BMP3M, PHOS3, MG3, CK3 #### [facility] [address] [place], [place] #### VD25H #### [facility] [address] [place] [address] CR Chest Portableon 07-29-19 CR Chest Portable Patient Name: KATHYA HOOPER Diagnostic Radiology Exam Date/Time 07/28/2018 07:09:40 EDT Exam CR Chest Portable Ordering Physician MARIA EUGENIA PEREZ Accession Number [id number] CPT4 Codes 07620 () Reason For Exam ETT placement Report [...] Transcribed Date and Time: 07/28/2018 7:16 Normal [facility] Glucose,Bedsideon 07-28-2018 Glucose mass conc 149 mg/dL High 70-100 [facility] Comment on above: Result Comment: Test performed by glucose meter. Results may be 10%-15% lower than serum/plasma values. (CLIA ID [id number]) Performed By: #### H EMDF, PT, BMP3M, PHOS3, MG3, CK3 #### [facility] [address] [place], [place] #### VD25H #### [facility] [address] [place] [address] Glucose mass conc 142 mg/dL High 70-100 [facility] Comment on above: Result Comment: Test performed by glucose meter. Results may be 10%-15% lower than serum/plasma values. (CLIA ID [id number]) Performed By: #### H EMDF, PT, BMP3M, PHOS3, MG3, CK3 #### [facility] [address] [place] [address] #### VD25H #### [facility] [address] [place] [address] Hemogram w/ Autodiffon 07-28 Erythrocyte distribution width Ratio (RBC) 13.8 % Normal 11.5-14.5 [facility] [place] [facility] Comment on above: Performed By: #### H EMDF, PT, BMP3M, PHOS3, MG3, CK3 #### [facility] [address] [place], [place] #### VD25H #### [facility] [address] [place] [address] Hematocrit Volume Fraction (Bld) 33.0 % Low 40.0-52.0 [facility] Comment on above: Performed By: #### H EMDF, PT, BMP3M, PHOS3, MG3, CK3 #### [facility] [address] [place] [address] #### VD25H #### [facility] [address] [place] [address] Hemoglobin mass conc (Bld) 11.0 g/dL Low 13.0-18.0 [facility] Comment on above: Performed By: #### H EMDF, PT, BMP3M, PHOS3, MG3, CK3 #### [facility] [address] [place], [place] #### VD25H #### [facility] [address] [facility] [place] [address] MCH Entitic mass (RBC) 28.7 pg Normal 26.0-34.0 [facility] Comment on above: Performed By: #### H EMDF, PT, BMP3M, PHOS3, MG3, CK3 #### [address] #### VD25H #### [facility] [address] [place] [address] MCHC mass conc (RBC) 33.4 % Normal 32.0-36.0 [facility] Comment on above: Performed By: #### H EMDF, PT, BMP3M, PHOS3, MG3, CK3 #### [address] #### VD25H #### [facility] [address] [place] [address] MCV Entitic volume (RBC) 86.0 fL Normal 80.0-98.0 [facility] Comment on above: Performed By: #### H EMDF, PT, BMP3M, PHOS3, MG3, CK3 #### [address] [place], [place] #### VD25H #### [facility] [address] [place] [address] Platelet mean volume Entitic volume (Bld) 8.4 fL Normal 7.4-10.4 [facility] Comment on above: Performed By: #### H EMDF, PT, BMP3M, PHOS3, MG3, CK3 #### [address] #### VD25H #### [facility] [address] [place] [address] Platelets #/vol (Bld) 477 10*3/uL High 140-440 [facility] Comment on above: Performed By: #### H EMDF, PT, BMP3M, PHOS3, MG3, CK3 #### [facility] [address] [place], [place] #### VD25H #### [facility] [address] [place] [address] RBC #/vol (Bld) 3.84 10*6/uL Low 4.40-5.90 [facility] Comment on above: Performed By: #### H EMDF, PT, BMP3M, PHOS3, MG3, CK3 #### [address] #### VD25H #### [place] [address] [place] [address] WBC #/vol (Bld) 18.1 10*3/uL High 3.6-10.7 [facility] Comment on above: Performed By: #### H EMDF, PT, BMP3M, PHOS3, MG3, CK3 #### [address] #### VD25H #### [place] [address] [place] [address] Magnesiumon 07-28-2018 Magnesium mass conc 2.4 mg/dL High 1.6-2.3 [facility] Comment on above: Performed By: #### H EMDF, PT, BMP3M, PHOS3, MG3, CK3 #### [address] #### VD25H #### [facility] [address] [place] [address] Manual Diffon 07-28-2018 Abs Neutrophile Cnt 14.8 10*3/uL High 2.2-8.2 [facility] Comment on above: Performed By: #### H EMDF, PT, BMP3M, PHOS3, MG3, CK3 #### [address] [place], [place] #### VD25H #### [facility] [address] [place] [address] Anisocytosis Ql (Bld) Slight Normal [facility] Comment on above: Performed By: #### H EMDF, PT, BMP3M, PHOS3, MG3, CK3 #### [facility] [address] [place], [place] #### VD25H #### [facility] [address] [place] [address] Hypochromia Slight Normal [facility] Comment on above: Performed By: #### H EMDF, PT, BMP3M, PHOS3, MG3, CK3 #### [address] [place], [place] #### VD25H #### [facility] [address] [place] [address] Lymphocytes #/vol (Bld) 1.3 10*3/uL Normal 1.1-4.5 [facility] Comment on above: Performed By: #### H EMDF, PT, BMP3M, PHOS3, MG3, CK3 #### [facility] [address] [place], [place] #### VD25H #### [facility] [address] [place] [address] Lymphocytes/100 WBC (Bld) 7 % Low 20-40 [facility] Comment on above: Performed By: #### H EMDF, PT, BMP3M, PHOS3, MG3, CK3 #### [address] [place], [place] #### VD25H #### [facility] [address] [place] [address] Microcytosis Slight Normal [facility] Comment on above: Performed By: #### H EMDF, PT, BMP3M, PHOS3, MG3, CK3 #### [facility] [address] [place], [place] #### VD25H #### [facility] [address] [place] [address] Monocytes #/vol (Bld) 2.0 10*3/uL High 0.2-1.1 [facility] Comment on above: Performed By: #### H EMDF, PT, BMP3M, PHOS3, MG3, CK3 #### [address] [place], [place] #### VD25H #### [facility] [address] [place] [address] Monocytes/100 WBC (Bld) 11 % High 2-10 [facility] Comment on above: Performed By: #### H EMDF, PT, BMP3M, PHOS3, MG3, CK3 #### [address] [place], [place] #### VD25H #### [place] [address] [place] [address] RBC morphology finding Nom (Bld) ABNORMAL Normal [facility] Comment on above: Performed By: #### H EMDF, PT, BMP3M, PHOS3, MG3, CK3 #### [address] [place], [place] #### VD25H #### [place] [address] [place] [address] Seg Neutrophils 82 % High 40-80 [facility] Comment on above: Performed By: #### H EMDF, PT, BMP3M, PHOS3, MG3, CK3 #### [address] [place], [place] #### VD25H #### [place] [address] [place] [address] Abs Baso Cnt 0.0 10*3/uL Normal 0.0-0.2 [facility] Comment on above: Performed By: #### H EMDF, PT, BMP3M, PHOS3, MG3, CK3 #### [address] [place], [place] #### VD25H #### [place] [address] [place] [address] Bands 0 % Normal 0-3 [facility] Comment on above: Performed By: #### H EMDF, PT, BMP3M, PHOS3, MG3, CK3 #### [facility] [address] [place], [place] #### VD25H #### [facility] [address] [place] [address] Basophils/100 WBC (Bld) 0 % Normal 0-2 [facility] Comment on above: Performed By: #### H EMDF, PT, BMP3M, PHOS3, MG3, CK3 #### [address] [address] [place], [place] #### VD25H #### [facility] [address] [place] [address] Cells counted 100 Normal [facility] Comment on above: Performed By: #### H EMDF, PT, BMP3M, PHOS3, MG3, CK3 #### [address] [address] [address] [place], [place] #### VD25H #### [facility] [address] [place] [address] Eosinophils #/vol (Bld) 0.0 10*3/uL Normal 0.0-0.5 [facility] Comment on above: Performed By: #### H EMDF, PT, BMP3M, PHOS3, MG3, CK3 #### [address] #### VD25H #### [facility] [address] [place] [address] Eosinophils/100 WBC (Bld) 0 % Low 1-6 [facility] Comment on above: Performed By: #### H EMDF, PT, BMP3M, PHOS3, MG3, CK3 #### [address] [place], [place] #### VD25H #### [facility] [address] [place] [address] Phosphoruson 07-28-2018 Phosphate mass conc 4.4 mg/dL Normal 2.5-4.5 [facility] Comment on above: Performed By: #### H EMDF, PT, BMP3M, PHOS3, MG3, CK3 #### [address] #### VD25H #### [facility] [address] [place] [address] Vancomycin Troughon 07-29-19 19 Vancomycin Trough 12.9 ug/mL Low 15.0-20.0 [facility] Comment on above: Result Comment: . Performed By: #### H EMDF, PT, BMP3M, PHOS3, MG3, CK3 #### [address] #### VD25H #### [place] [address] [place] [address] Arterial Blood Gaseson 07-27 CO2 molar conc 28.4 mmol/L High 23.0-27.0 [facility] Comment on above: Performed By: #### H EMDF, PT, BMP3M, PHOS3, MG3, CK3 #### [address] #### VD25H #### [address] [place] [address] HCO3 molar conc (Bld) 27.2 mmol/L High 21.0-25.0 [facility] Comment on above: Performed By: #### H EMDF, PT, BMP3M, PHOS3, MG3, CK3 #### [address] #### VD25H #### [facility] [address] [place] [address] Hemoglobin mass conc (Bld) 11.7 g/dL Normal ScreenOnly [facility] Comment on above: Performed By: #### H EMDF, PT, BMP3M, PHOS3, MG3, CK3 #### [address] #### VD25H #### [address] [place] [address] [place] [address] Oxygen ppres (Bld) 91.3 mm[Hg] Normal 80.0-100.0 [facility] Comment on above: Performed By: #### H EMDF, PT, BMP3M, PHOS3, MG3, CK3 #### [facility] [address] [facility], [place] #### VD25H #### [facility] [address] [place] [address] Oxygen saturation in Blood 96.9 % Normal 95.0-100.0 [facility] Comment on above: Performed By: #### H EMDF, PT, BMP3M, PHOS3, MG3, CK3 #### [address] [address] [address] [facility], [place] #### VD25H #### [place] [address] [place] [address] pCO2 39.0 mm[Hg] Normal 35.0-45.0 [facility] Comment on above: Performed By: #### H EMDF, PT, BMP3M, PHOS3, MG3, CK3 #### [address] [address] [address] [facility], [place] #### VD25H #### [facility] [address] [place] [address] pH (Bld) 7.461 High 7.350-7.450 [facility] Comment on above: Performed By: #### H EMDF, PT, BMP3M, PHOS3, MG3, CK3 #### [address] [address] [address] [facility], [place] #### VD25H #### [facility] [address] [place] [address] Std Base Excess 3.2 mmol/L High -3.0-3.0 [facility] Comment on above: Performed By: #### H EMDF, PT, BMP3M, PHOS3, MG3, CK3 #### [address] [address] [address] [facility], [place] #### VD25H #### [facility] [address] [place] [address] FIO2 No data Normal [facility] Comment on above: Performed By: #### H EMDF, PT, BMP3M, PHOS3, MG3, CK3 #### [facility] [address] [place], [place] #### VD25H #### [facility] [address] [place] [address] Basic Metabolic Panelon -2 Anion gap molar conc 12 Normal [facility] Comment on above: Performed By: #### H EMDF, PT, BMP3M, PHOS3, MG3, CK3 #### [address] [address] [address] [place] #### VD25H #### [facility] [address] [place] [address] Calcium mass conc 8.3 mg/dL Low 8.4-10.4 [facility] Comment on above: Performed By: #### H EMDF, PT, BMP3M, PHOS3, MG3, CK3 #### [address] [address] [address] [place] #### VD25H #### [facility] [address] [place] [address] CO2 molar conc 28 mmol/L Normal 22-30 [facility] Comment on above: Performed By: #### H EMDF, PT, BMP3M, PHOS3, MG3, CK3 #### [address] [address] [address] [place] #### VD25H #### [facility] [address] [place] [address] Glucose mass conc 156 mg/dL High 70-100 [facility] Comment on above: Performed By: #### H EMDF, PT, BMP3M, PHOS3, MG3, CK3 #### [address] [address] [place] #### VD25H #### [facility] [address] [place] [address] Urea nitrogen mass conc 21 mg/dL High 7-20 [facility] Comment on above: Performed By: #### H EMDF, PT, BMP3M, PHOS3, MG3, CK3 #### [address] [address] #### VD25H #### [facility] [address] [place] [address] Creatinine mass conc 0.53 mg/dL Normal 0.52-1.25 [facility] Comment on above: Performed By: #### H EMDF, PT, BMP3M, PHOS3, MG3, CK3 #### [address] #### VD25H #### [facility] [address] [place] [address] GFR/1.73 sq M predicted among blacks MDRD vol rate/area (S/P/Bld) mL/min/{1.73_m2} Normal >60 [facility] Comment on above: Performed By: #### H EMDF, PT, BMP3M, PHOS3, MG3, CK3 #### [address] #### VD25H #### [facility] [address] [place] [address] GFR/1.73 sq M predicted among non-blacks MDRD vol rate/area (S/P/Bld) mL/min/{1.73_m2} Normal >60 [facility] Comment on above: Result Comment: Sour ce- MDRD equation with creatinine calibration to IDMS(NKDEP) eGFR not recommended for drug dose adjustment Performed By: #### H EMDF, PT, BMP3M, PHOS3, MG3, CK3 #### [address] [address] #### VD25H #### [facility] [address] [place] [address] Potassium molar conc 3.2 mmol/L Low 3.5-5.1 [facility] Comment on above: Performed By: #### H EMDF, PT, BMP3M, PHOS3, MG3, CK3 #### [facility] [address] [place] [address] #### VD25H #### [facility] [address] [place] [address] Chloride molar conc 99 mmol/L Normal 98-107 [facility] Comment on above: Performed By: #### H EMDF, PT, BMP3M, PHOS3, MG3, CK3 #### [facility] [address] [place] [address] #### VD25H #### [facility] [address] [place] [address] Sodium molar conc 139 mmol/L Normal 135-145 [facility] Comment on above: Performed By: #### H EMDF, PT, BMP3M, PHOS3, MG3, CK3 #### [facility] [address] [place] [address] #### VD25H #### [facility] [address] [place] [address] CR Chest Portableon 07-28-19 19 CR Chest Portable Patient Name: KATHYA HOOPER Diagnostic Radiology Exam Date/Time 07/27/2018 07:08:59 EDT Exam CR Chest Portable Ordering Physician MARIA EUGENIA PEREZ Accession Number [id number] CPT4 Codes 33516 () Reason For Exam ETT placement Report [...] Transcribed Date and Time: 07/27/2018 8:02 [facility] Glucose,Bedsideon 07-27-2018 Glucose mass conc 151 mg/dL High 70-100 [facility] Comment on above: Result Comment: Test performed by glucose meter. Results may be 10%-15% lower than serum/plasma values. (CLIA ID [id number]) Performed By: #### H EMDF, PT, BMP3M, PHOS3, MG3, CK3 #### [facility] [address] [place] [address] #### VD25H #### [facility] [address] [place] [address] Glucose mass conc 131 mg/dL High 70-100 [facility] Comment on above: Result Comment: Test performed by glucose meter. Results may be 10%-15% lower than serum/plasma values. (CLIA ID [id number]) Performed By: #### H EMDF, PT, BMP3M, PHOS3, MG3, CK3 #### [facility] [address] [place] [address] #### VD25H #### [facility] [address] [place] [address] Glucose mass conc 123 mg/dL High 70-100 [facility] Comment on above: Result Comment: Test performed by glucose meter. Results may be 10%-15% lower than serum/plasma values. (CLIA ID [id number]) Performed By: #### H EMDF, PT, BMP3M, PHOS3, MG3, CK3 #### [facility] [facility] [address] [place] [address] #### VD25H #### [facility] [address] [place] [address] Glucose mass conc 133 mg/dL High 70-100 [facility] Comment on above: Result Comment: Test performed by glucose meter. Results may be 10%-15% lower than serum/plasma values. (CLIA ID [id number]) Performed By: #### H EMDF, PT, BMP3M, PHOS3, MG3, CK3 #### [address] #### VD25H #### [facility] [address] [place] [address] Hemogram w/ Autodiffon 07-27 Erythrocyte distribution width Ratio (RBC) 13.5 % Normal 11.5-14.5 [facility] Comment on above: Performed By: #### H EMDF, PT, BMP3M, PHOS3, MG3, CK3 #### [address] #### VD25H #### [facility] [address] [facility] [place] [address] Hematocrit Volume Fraction (Bld) 32.5 % Low 40.0-52.0 [facility] Comment on above: Performed By: #### H EMDF, PT, BMP3M, PHOS3, MG3, CK3 #### [address] #### VD25H #### [facility] [address] [place] [address] Hemoglobin mass conc (Bld) 11.1 g/dL Low 13.0-18.0 [facility] Comment on above: Performed By: #### H EMDF, PT, BMP3M, PHOS3, MG3, CK3 #### [address] #### VD25H #### [facility] [address] [facility] [place] [address] MCH Entitic mass (RBC) 29.2 pg Normal 26.0-34.0 [facility] Comment on above: Performed By: #### H EMDF, PT, BMP3M, PHOS3, MG3, CK3 #### [address] #### VD25H #### [place] [address] [place] [address] MCHC mass conc (RBC) 34.1 % Normal 32.0-36.0 [facility] Comment on above: Performed By: #### H EMDF, PT, BMP3M, PHOS3, MG3, CK3 #### [address] [address] [address] [place], [place] #### VD25H #### [facility] [address] [place] [address] MCV Entitic volume (RBC) 85.7 fL Normal 80.0-98.0 [facility] Comment on above: Performed By: #### H EMDF, PT, BMP3M, PHOS3, MG3, CK3 #### [address] [address] [address] [place] #### VD25H #### [facility] [address] [place] [address] Platelet mean volume Entitic volume (Bld) 7.9 fL Normal 7.4-10.4 [facility] Comment on above: Performed By: #### H EMDF, PT, BMP3M, PHOS3, MG3, CK3 #### [address] [address] [address] [place] #### VD25H #### [facility] [address] [place] [address] Platelets #/vol (Bld) 466 10*3/uL High 140-440 [facility] Comment on above: Performed By: #### H EMDF, PT, BMP3M, PHOS3, MG3, CK3 #### [address] [address] [address] [place] #### VD25H #### [facility] [address] [place] [address] RBC #/vol (Bld) 3.79 10*6/uL Low 4.40-5.90 [facility] Comment on above: Performed By: #### H EMDF, PT, BMP3M, PHOS3, MG3, CK3 #### [address] #### VD25H #### [facility] [address] [place] [address] WBC #/vol (Bld) 18.7 10*3/uL High 3.6-10.7 [facility] Comment on above: Performed By: #### H EMDF, PT, BMP3M, PHOS3, MG3, CK3 #### [facility] [address] [place] #### VD25H #### [facility] [address] [place] [address] Magnesiumon 07-27-2018 Magnesium mass conc 2.1 mg/dL Normal 1.6-2.3 [facility] Comment on above: Performed By: #### H EMDF, PT, BMP3M, PHOS3, MG3, CK3 #### [address] #### VD25H #### [address] [place] Manual Diffon 07-27-2018 RBC morphology finding Nom (Bld) Normal Normal [facility] Comment on above: Performed By: #### H EMDF, PT, BMP3M, PHOS3, MG3, CK3 #### [address] #### VD25H #### [facility] [address] [facility] [address] [facility] [address] [place] Abs Neutrophile Cnt 14.2 10*3/uL High 2.2-8.2 [facility] Comment on above: Performed By: #### H EMDF, PT, BMP3M, PHOS3, MG3, CK3 #### [address] [place], [place] #### VD25H #### [facility] [address] [place] Atypical Lymphocytes 2 % Abnormal <1 [facility] Comment on above: Performed By: #### H EMDF, PT, BMP3M, PHOS3, MG3, CK3 #### [address] #### VD25H #### [facility] [address] [place] [address] Bands 5 % High 0-3 [facility] Comment on above: Performed By: #### H EMDF, PT, BMP3M, PHOS3, MG3, CK3 #### [facility] [address] [place] #### VD25H #### [facility] [address] [place] [address] Eosinophils #/vol (Bld) 0.6 10*3/uL High 0.0-0.5 [facility] Comment on above: Performed By: #### H EMDF, PT, BMP3M, PHOS3, MG3, CK3 #### [address] [address] [address] [place] #### VD25H #### [facility] [address] [place] [address] Eosinophils/100 WBC (Bld) 3 % Normal 1-6 [facility] Comment on above: Performed By: #### H EMDF, PT, BMP3M, PHOS3, MG3, CK3 #### [address] [address] [address] [place] #### VD25H #### [facility] [address] [place] [address] Lymphocytes #/vol (Bld) 2.1 10*3/uL Normal 1.1-4.5 [facility] Comment on above: Performed By: #### H EMDF, PT, BMP3M, PHOS3, MG3, CK3 #### [address] [address] [place] #### VD25H #### [facility] [address] [place] [address] Lymphocytes/100 WBC (Bld) 11 % Low 20-40 [facility] Comment on above: Performed By: #### H EMDF, PT, BMP3M, PHOS3, MG3, CK3 #### [address] #### VD25H #### [facility] [address] [place] [address] Monocytes #/vol (Bld) 1.5 10*3/uL High 0.2-1.1 [facility] Comment on above: Performed By: #### H EMDF, PT, BMP3M, PHOS3, MG3, CK3 #### [facility] [address] [place], [place] #### VD25H #### [facility] [address] [place] [address] Monocytes/100 WBC (Bld) 8 % Normal 2-[address] [facility] Comment on above: Performed By: #### H EMDF, PT, BMP3M, PHOS3, MG3, CK3 #### [address] [address] [address] [place] #### VD25H #### [facility] [address] [place] [address] NRBC 1 /100{WBCs} High -1-0 [facility] Comment on above: Result Comment: Newb orn (<60 days) 1-10 Adult <1 Performed By: #### H EMDF, PT, BMP3M, PHOS3, MG3, CK3 #### [address] [address] [place] #### VD25H #### [facility] [address] [place] [address] Seg Neutrophils 71 % Normal 40-80 [facility] Comment on above: Performed By: #### H EMDF, PT, BMP3M, PHOS3, MG3, CK3 #### [address] [address] [place] #### VD25H #### [facility] [address] [place] [address] Abs Baso Cnt 0.0 10*3/uL Normal 0.0-0.2 [facility] Comment on above: Performed By: #### H EMDF, PT, BMP3M, PHOS3, MG3, CK3 #### [address] [address] [place] #### VD25H #### [facility] [address] [place] [address] Basophils/100 WBC (Bld) 0 % Normal 0-2 [facility] Comment on above: Performed By: #### H EMDF, PT, BMP3M, PHOS3, MG3, CK3 #### [facility] [address] [place], [place] #### VD25H #### [facility] [address] [place] [address] Cells counted 100 Normal [facility] Comment on above: Performed By: #### H EMDF, PT, BMP3M, PHOS3, MG3, CK3 #### [facility] [address] [place] #### VD25H #### [facility] [address] [place] [address] Phosphoruson 07-27-2018 Phosphate mass conc 3.0 mg/dL Normal 2.5-4.5 [facility] Comment on above: Performed By: #### H EMDF, PT, BMP3M, PHOS3, MG3, CK3 #### [facility] [address] [place] #### VD25H #### [facility] [address] [place] [address] VL Venous Duplex US Lower Ex t Bilateralon 07-27-2018 VL Venous Duplex US Lower Ext Bilateral Patient Name: KATHYA HOOPER Ultrasound Exam Date/Time 07/27/2018 10:56:18 EDT Exam VL Venous Duplex US Lower Ext Bilateral Ordering Physician ETIENNE MARTÍNEZ JULIE Accession Number [id number] CPT4 Codes 94688 () Reason For Exam edema Report [facility] --- Lower Extremity Venous Duplex Report Patient Name: Kathya Hooper : 1955 Study Date: 07/27/2018 W (63yrs) Age: 63 Account: [id number] Gender: M Loc: T209 BP: Ordering: Yesenia Martínez Technologist: Ordering Physician: Yesenia Martínez Patient Registration Supervisor: Mary Man T Interpreting Physician: Ricardo Hall MD --- Location: [facility] --- INDICATIONS: Bilateral leg edema. [...] performed. The images were obtained using a EverTrue E9 vascular ultrasound machine. The study was [...] --+ Electronically signed by: Ricardo Hall MD [id number] Final Dictated: 07/27/2018 12:55 pm Dictating Physician: RICARDO HALL Signed Date and Time: 07/27/2018 12:55 pm Signed by: RICARDO HALL Normal [facility] Metabolic Panelon 06-30 Calcium mass conc 7.9 mg/dL Low 8.4-10.4 [facility] Comment on above: Performed By: #### H EMDF, PT, BMP3M, PHOS3, MG3, CK3 #### [facility] [address] [place] [address] #### VD25H #### [facility] [address] [place] [address] Anion gap molar conc 9 Normal [facility] Comment on above: Performed By: #### H EMDF, PT, BMP3M, PHOS3, MG3, CK3 #### [address] [address] #### VD25H #### [facility] [address] [place] [address] CO2 molar conc 24 mmol/L Normal 22-30 [facility] Comment on above: Performed By: #### H EMDF, PT, BMP3M, PHOS3, MG3, CK3 #### [address] [address] #### VD25H #### [facility] [address] [place] [address] Creatinine mass conc 0.54 mg/dL Normal 0.52-1.25 [facility] Comment on above: Performed By: #### H EMDF, PT, BMP3M, PHOS3, MG3, CK3 #### [address] [address] #### VD25H #### [facility] [address] [place] [address] GFR/1.73 sq M predicted among blacks MDRD vol rate/area (S/P/Bld) mL/min/{1.73_m2} Normal >60 [facility] Comment on above: Performed By: #### H EMDF, PT, BMP3M, PHOS3, MG3, CK3 #### [address] [address] #### VD25H #### [facility] [address] [place] [address] GFR/1.73 sq M predicted among non-blacks MDRD vol rate/area (S/P/Bld) mL/min/{1.73_m2} Normal >60 [facility] Comment on above: Result Comment: Sour ce- MDRD equation with creatinine calibration to IDMS(NKDEP) eGFR not recommended for drug dose adjustment Performed By: #### H EMDF, PT, BMP3M, PHOS3, MG3, CK3 #### [place] [address] [address] [facility], [place] #### VD25H #### [facility] [address] [place] [address] Glucose mass conc 166 mg/dL High 70-100 [facility] Comment on above: Performed By: #### H EMDF, PT, BMP3M, PHOS3, MG3, CK3 #### [place] [address] [address] [facility], [place] #### VD25H #### [facility] [address] [place] [address] Urea nitrogen mass conc 21 mg/dL High 7-20 [facility] Comment on above: Performed By: #### H EMDF, PT, BMP3M, PHOS3, MG3, CK3 #### [place] [address] [facility], [place] #### VD25H #### [facility] [address] [place] [address] Chloride molar conc 107 mmol/L Normal 98-107 [facility] Comment on above: Performed By: #### H EMDF, PT, BMP3M, PHOS3, MG3, CK3 #### [place] [address] [facility], [place] #### VD25H #### [facility] [address] [place] [address] Potassium molar conc 3.7 mmol/L Normal 3.5-5.1 [facility] Comment on above: Performed By: #### H EMDF, PT, BMP3M, PHOS3, MG3, CK3 #### [place] [address] [address] [facility], [place] #### VD25H #### [facility] [address] [place] [address] Sodium molar conc 140 mmol/L Normal 135-145 [facility] Comment on above: Performed By: #### H EMDF, PT, BMP3M, PHOS3, MG3, CK3 #### [facility] [facility] [address] [place], [place] #### VD25H #### [facility] [address] [place] [address] CR Chest Portableon 07-27-19 19 CR Chest Portable Patient Name: KATHYA HOOPER Diagnostic Radiology Exam Date/Time 07/26/2018 06:06:25 EDT Exam CR Chest Portable Ordering Physician MARIA EUGENIA PEREZ Accession Number [id number] CPT4 Codes 94864 () Reason For Exam ETT placement Report [...] Transcribed Date and Time: 07/26/2018 9:15 Normal [facility] Glucose,Bedsideon 07-26-2018 Glucose mass conc 160 mg/dL High 70-100 [facility] [employer] [facility] Comment on above: Result Comment: Test performed by glucose meter. Results may be 10%-15% lower than serum/plasma values. (CLIA ID [id number]) Performed By: #### H EMDF, PT, BMP3M, PHOS3, MG3, CK3 #### [facility] [facility] [address] [place], [place] #### VD25H #### [facility] [address] [place] [place] [address] Glucose mass conc 166 mg/dL High 70-100 [facility] Comment on above: Result Comment: Test performed by glucose meter. Results may be 10%-15% lower than serum/plasma values. (CLIA ID [id number]) Performed By: #### H EMDF, PT, BMP3M, PHOS3, MG3, CK3 #### [facility] [place] #### VD25H #### [employer] [address] [place] [address] Glucose mass conc 183 mg/dL High 70-100 [facility] [employer] [facility] Comment on above: Result Comment: Test performed by glucose meter. Results may be 10%-15% lower than serum/plasma values. (CLIA ID [id number]) Performed By: #### H EMDF, PT, BMP3M, PHOS3, MG3, CK3 #### [employer] [address] [place] [address] #### VD25H #### [employer] [address] [place] [address] Glucose mass conc 151 mg/dL High 70-100 [facility] Comment on above: Result Comment: Test performed by glucose meter. Results may be 10%-15% lower than serum/plasma values. (CLIA ID [id number]) Performed By: #### H EMDF, PT, BMP3M, PHOS3, MG3, CK3 #### [facility] [facility] [place] #### VD25H #### [employer] [address] [place] [address] Hemogram w/ Autodiffon 07-26 Erythrocyte distribution width Ratio (RBC) 13.7 % Normal 11.5-14.5 [facility] Comment on above: Performed By: #### H EMDF, PT, BMP3M, PHOS3, MG3, CK3 #### [employer] [address] [place] [address] #### VD25H #### [employer] [address] [place] [address] Hematocrit Volume Fraction (Bld) 31.1 % Low 40.0-52.0 [facility] Comment on above: Performed By: #### H EMDF, PT, BMP3M, PHOS3, MG3, CK3 #### [facility] [address] [place], [place] #### VD25H #### [facility] [address] [place] [address] Hemoglobin mass conc (Bld) 10.6 g/dL Low 13.0-18.0 [facility] Comment on above: Performed By: #### H EMDF, PT, BMP3M, PHOS3, MG3, CK3 #### [address] #### VD25H #### [facility] [address] [place] [address] MCH Entitic mass (RBC) 29.2 pg Normal 26.0-34.0 [facility] Comment on above: Performed By: #### H EMDF, PT, BMP3M, PHOS3, MG3, CK3 #### [address] #### VD25H #### [facility] [address] [place] [address] MCHC mass conc (RBC) 34.0 % Normal 32.0-36.0 [facility] Comment on above: Performed By: #### H EMDF, PT, BMP3M, PHOS3, MG3, CK3 #### [address] #### VD25H #### [facility] [address] [place] [address] MCV Entitic volume (RBC) 86.1 fL Normal 80.0-98.0 [facility] Comment on above: Performed By: #### H EMDF, PT, BMP3M, PHOS3, MG3, CK3 #### [address] #### VD25H #### [facility] [address] [place] [address] Platelet mean volume Entitic volume (Bld) 8.3 fL Normal 7.4-10.4 [facility] Comment on above: Performed By: #### H EMDF, PT, BMP3M, PHOS3, MG3, CK3 #### [facility] [address] [place], [place] #### VD25H #### [facility] [address] [place] [address] Platelets #/vol (Bld) 364 10*3/uL Normal 140-440 [facility] Comment on above: Performed By: #### H EMDF, PT, BMP3M, PHOS3, MG3, CK3 #### [address] #### VD25H #### [facility] [address] [place] [address] RBC #/vol (Bld) 3.62 10*6/uL Low 4.40-5.90 [facility] Comment on above: Performed By: #### H EMDF, PT, BMP3M, PHOS3, MG3, CK3 #### [address] #### VD25H #### [facility] [address] [place] [address] WBC #/vol (Bld) 15.2 10*3/uL High 3.6-10.7 [facility] Comment on above: Performed By: #### H EMDF, PT, BMP3M, PHOS3, MG3, CK3 #### [address] #### VD25H #### [facility] [address] [place] [address] Magnesiumon 07-26-2018 Magnesium mass conc 2.0 mg/dL Normal 1.6-2.3 [facility] Comment on above: Performed By: #### H EMDF, PT, BMP3M, PHOS3, MG3, CK3 #### [address] #### VD25H #### [facility] [address] [place] [address] Manual Diffon 07-26-2018 Abs Neutrophile Cnt 12.8 10*3/uL High 2.2-8.2 [facility] Comment on above: Performed By: #### H EMDF, PT, BMP3M, PHOS3, MG3, CK3 #### [facility] [address] [place], [place] #### VD25H #### [facility] [address] [place] [address] Lymphocytes #/vol (Bld) 1.4 10*3/uL Normal 1.1-4.5 [facility] Comment on above: Performed By: #### H EMDF, PT, BMP3M, PHOS3, MG3, CK3 #### [address] #### VD25H #### [place] [address] [place] [address] Lymphocytes/100 WBC (Bld) 9 % Low 20-40 [facility] Comment on above: Performed By: #### H EMDF, PT, BMP3M, PHOS3, MG3, CK3 #### [place] [address] [place], [place] #### VD25H #### [place] [address] [place] [address] Monocytes #/vol (Bld) 1.1 10*3/uL Normal 0.2-1.1 [facility] Comment on above: Performed By: #### H EMDF, PT, BMP3M, PHOS3, MG3, CK3 #### [place] [address] [place] #### VD25H #### [facility] [address] [place] [address] Monocytes/100 WBC (Bld) 7 % Normal 2-10 [facility] Comment on above: Performed By: #### H EMDF, PT, BMP3M, PHOS3, MG3, CK3 #### [place] [address] [place], [place] #### VD25H #### [facility] [address] [place] [address] RBC morphology finding Nom (Bld) Normal Normal [facility] Comment on above: Performed By: #### H EMDF, PT, BMP3M, PHOS3, MG3, CK3 #### [place] [address] [place], [place] #### VD25H #### [facility] [address] [place] [address] Seg Neutrophils 84 % High 40-80 [facility] Comment on above: Performed By: #### H EMDF, PT, BMP3M, PHOS3, MG3, CK3 #### [address] [place], [place] #### VD25H #### [facility] [address] [place] [address] Abs Baso Cnt 0.0 10*3/uL Normal 0.0-0.2 [facility] Comment on above: Performed By: #### H EMDF, PT, BMP3M, PHOS3, MG3, CK3 #### [address] [place], [place] #### VD25H #### [facility] [address] [place] [address] Bands 0 % Normal 0-3 [facility] Comment on above: Performed By: #### H EMDF, PT, BMP3M, PHOS3, MG3, CK3 #### [address] [place], [place] #### VD25H #### [facility] [address] [place] [address] Basophils/100 WBC (Bld) 0 % Normal 0-2 [facility] Comment on above: Performed By: #### H EMDF, PT, BMP3M, PHOS3, MG3, CK3 #### [place] [address] [place], [place] #### VD25H #### [facility] [address] [place] [address] Cells counted 100 Normal [facility] Comment on above: Performed By: #### H EMDF, PT, BMP3M, PHOS3, MG3, CK3 #### [address] #### VD25H #### [place] [address] [place] [address] Eosinophils #/vol (Bld) 0.0 10*3/uL Normal 0.0-0.5 [facility] Comment on above: Performed By: #### H EMDF, PT, BMP3M, PHOS3, MG3, CK3 #### [address] #### VD25H #### [place] [address] [place] [address] Eosinophils/100 WBC (Bld) 0 % Low 1-6 [facility] Comment on above: Performed By: #### H EMDF, PT, BMP3M, PHOS3, MG3, CK3 #### [address] #### VD25H #### [place] [address] [place] [address] Phosphoruson 07-26-2018 Phosphate mass conc 3.1 mg/dL Normal 2.5-4.5 [facility] Comment on above: Performed By: #### H EMDF, PT, BMP3M, PHOS3, MG3, CK3 #### [address] #### VD25H #### [place] [address] [place] [address] Vancomycin Troughon 07-27-19 19 Vancomycin Trough 8.9 ug/mL Low 15.0-20.0 [facility] Comment on above: Result Comment: . Performed By: #### H EMDF, PT, BMP3M, PHOS3, MG3, CK3 #### [address] #### VD25H #### [facility] [address] [place] [address] Arterial Blood Gaseson 07-25 CO2 molar conc 22.0 mmol/L Low 23.0-27.0 [facility] Comment on above: Performed By: #### H EMDF, PT, BMP3M, PHOS3, MG3, CK3 #### [place] [address] [place] #### VD25H #### [facility] [address] [place] [address] HCO3 molar conc (Bld) 21.1 mmol/L Normal 21.0-25.0 [facility] Comment on above: Performed By: #### H EMDF, PT, BMP3M, PHOS3, MG3, CK3 #### [address] #### VD25H #### [place] [address] [place] [address] Hemoglobin mass conc (Bld) 10.1 g/dL Normal ScreenOnly [facility] Comment on above: Performed By: #### H EMDF, PT, BMP3M, PHOS3, MG3, CK3 #### [place] [address] [place], [place] #### VD25H #### [place] [address] [place] [address] Oxygen ppres (Bld) 88.3 mm[Hg] Normal 80.0-100.0 [facility] Comment on above: Performed By: #### H EMDF, PT, BMP3M, PHOS3, MG3, CK3 #### [address] #### VD25H #### [place] [address] [place] [address] Oxygen saturation in Blood 96.8 % Normal 95.0-100.0 [facility] Comment on above: Performed By: #### H EMDF, PT, BMP3M, PHOS3, MG3, CK3 #### [place] [address] [place] #### VD25H #### [facility] [address] [place] [address] pCO2 29.9 mm[Hg] Low 35.0-45.0 [facility] Comment on above: Performed By: #### H EMDF, PT, BMP3M, PHOS3, MG3, CK3 #### [place] [address] [place] #### VD25H #### [facility] [address] [place] [address] pH (Bld) 7.467 High 7.350-7.450 [facility] Comment on above: Performed By: #### H EMDF, PT, BMP3M, PHOS3, MG3, CK3 #### [address] #### VD25H #### [place] [address] [place] [address] Std Base Excess -1.9 mmol/L Normal -3.0-3.0 [facility] Comment on above: Performed By: #### H EMDF, PT, BMP3M, PHOS3, MG3, CK3 #### [address] #### VD25H #### [facility] [address] [place] [address] FIO2 .30 Normal [facility] Comment on above: Performed By: #### H EMDF, PT, BMP3M, PHOS3, MG3, CK3 #### [address] [place], [place] #### VD25H #### [facility] [address] [place] [address] Basic Metabolic Panelon 03-2 Calcium mass conc 8.1 mg/dL Low 8.4-10.4 [facility] Comment on above: Performed By: #### H EMDF, PT, BMP3M, PHOS3, MG3, CK3 #### [address] #### VD25H #### [facility] [address] [place] [address] Anion gap molar conc 8 Normal [facility] Comment on above: Performed By: #### H EMDF, PT, BMP3M, PHOS3, MG3, CK3 #### [address] #### VD25H #### [facility] [address] [place] [address] CO2 molar conc 24 mmol/L Normal 22-30 [facility] Comment on above: Performed By: #### H EMDF, PT, BMP3M, PHOS3, MG3, CK3 #### [address] #### VD25H #### [place] [address] [place] [address] Creatinine mass conc 0.55 mg/dL Normal 0.52-1.25 [facility] Comment on above: Performed By: #### H EMDF, PT, BMP3M, PHOS3, MG3, CK3 #### [address] #### VD25H #### [place] [address] [place] [address] GFR/1.73 sq M predicted among blacks MDRD vol rate/area (S/P/Bld) mL/min/{1.73_m2} Normal >60 [facility] Comment on above: Performed By: #### H EMDF, PT, BMP3M, PHOS3, MG3, CK3 #### [address] #### VD25H #### [place] [address] [place] [address] GFR/1.73 sq M predicted among non-blacks MDRD vol rate/area (S/P/Bld) mL/min/{1.73_m2} Normal >60 [facility] Comment on above: Result Comment: Sour ce- MDRD equation with creatinine calibration to IDMS(NKDEP) eGFR not recommended for drug dose adjustment Performed By: #### H EMDF, PT, BMP3M, PHOS3, MG3, CK3 #### [facility] [address] [facility], [place] #### VD25H #### [facility] [address] [place] [address] Glucose mass conc 184 mg/dL High 70-100 [facility] Comment on above: Performed By: #### H EMDF, PT, BMP3M, PHOS3, MG3, CK3 #### [place] [address] [facility], [place] #### VD25H #### [facility] [address] [place] [address] Urea nitrogen mass conc 20 mg/dL Normal 7-20 [facility] Comment on above: Performed By: #### H EMDF, PT, BMP3M, PHOS3, MG3, CK3 #### [place] [address] [facility], [place] #### VD25H #### [facility] [address] [place] [address] Chloride molar conc 109 mmol/L High 98-107 [facility] Comment on above: Performed By: #### H EMDF, PT, BMP3M, PHOS3, MG3, CK3 #### [facility] [address] [facility], [place] #### VD25H #### [facility] [address] [place] [address] Potassium molar conc 4.0 mmol/L Normal 3.5-5.1 [facility] Comment on above: Performed By: #### H EMDF, PT, BMP3M, PHOS3, MG3, CK3 #### [facility] [address] [facility], [place] #### VD25H #### [facility] [address] [place] [address] Sodium molar conc 141 mmol/L Normal 135-145 [facility] Comment on above: Performed By: #### H EMDF, PT, BMP3M, PHOS3, MG3, CK3 #### [facility] [address] [place] [address] #### VD25H #### [facility] [address] [place] [address] CR Chest Portableon 07-26-19 19 CR Chest Portable Patient Name: KATHYA HOOPER Diagnostic Radiology Exam Date/Time 07/25/2018 06:39:42 EDT Exam CR Chest Portable Ordering Physician MARIA EUGENIA PEREZ Accession Number [id number] CPT4 Codes 88098 () Reason For Exam ETT placement Report [...] Transcribed Date and Time: 07/25/2018 7:45 Normal [facility] CULTURE URINEon 07-25-2018 CULTURE URINE 1 [...] 4 S Trimeth/Sulfa(CHRISTI) <= 20 S Normal [facility] Comment on above: Order Comment: Speci men Source Comment:Urine, clean catch Performed By: #### H EMDF, PT, BMP3M, PHOS3, MG3, CK3 #### [facility] [address] [place] [address] #### VD25H #### [facility] [address] [place] [address] Glucose,Bedsideon 07-25-2018 Glucose mass conc 140 mg/dL High 70-100 [facility] Comment on above: Result Comment: Test performed by glucose meter. Results may be 10%-15% lower than serum/plasma values. (CLIA ID [id number]) Performed By: #### H EMDF, PT, BMP3M, PHOS3, MG3, CK3 #### [facility] [address] [place] [address] #### VD25H #### [facility] [address] [place] [address] Glucose mass conc 158 mg/dL High 70-100 [facility] Comment on above: Result Comment: Test performed by glucose meter. Results may be 10%-15% lower than serum/plasma values. (CLIA ID [id number]) Performed By: #### H EMDF, PT, BMP3M, PHOS3, MG3, CK3 #### [facility] [address] [place], [place] #### VD25H #### [facility] [address] [place] [address] Glucose mass conc 172 mg/dL High 70-100 [facility] Comment on above: Result Comment: Test performed by glucose meter. Results may be 10%-15% lower than serum/plasma values. (CLIA ID [id number]) Performed By: #### H EMDF, PT, BMP3M, PHOS3, MG3, CK3 #### [facility] [address] [place] [address] #### VD25H #### [facility] [address] [place] [address] Glucose mass conc 169 mg/dL High 70-100 [facility] Comment on above: Result Comment: Test performed by glucose meter. Results may be 10%-15% lower than serum/plasma values. (CLIA ID [id number]) Performed By: #### H EMDF, PT, BMP3M, PHOS3, MG3, CK3 #### [facility] [address] [place] [address] #### VD25H #### [facility] [address] [place] [address] Glucose mass conc 165 mg/dL High 70-100 [facility] Comment on above: Result Comment: Test performed by glucose meter. Results may be 10%-15% lower than serum/plasma values. (CLIA ID [id number]) Performed By: #### H EMDF, PT, BMP3M, PHOS3, MG3, CK3 #### [facility] [address] [place], [place] #### VD25H #### [facility] [address] [place] [address] Hemogram w/ Autodiffon 07-25 Erythrocyte distribution width Ratio (RBC) 13.6 % Normal 11.5-14.5 [facility] Comment on above: Performed By: #### H EMDF, PT, BMP3M, PHOS3, MG3, CK3 #### [address] [place] [address] #### VD25H #### [facility] [address] [place] [address] Hematocrit Volume Fraction (Bld) 31.3 % Low 40.0-52.0 [facility] Comment on above: Performed By: #### H EMDF, PT, BMP3M, PHOS3, MG3, CK3 #### [address] #### VD25H #### [facility] [address] [place] [address] Hemoglobin mass conc (Bld) 10.6 g/dL Low 13.0-18.0 [facility] Comment on above: Performed By: #### H EMDF, PT, BMP3M, PHOS3, MG3, CK3 #### [address] #### VD25H #### [facility] [address] [place] [address] MCH Entitic mass (RBC) 29.4 pg Normal 26.0-34.0 [facility] Comment on above: Performed By: #### H EMDF, PT, BMP3M, PHOS3, MG3, CK3 #### [address] #### VD25H #### [facility] [address] [place] [address] MCHC mass conc (RBC) 33.8 % Normal 32.0-36.0 [facility] Comment on above: Performed By: #### H EMDF, PT, BMP3M, PHOS3, MG3, CK3 #### [address] #### VD25H #### [facility] [address] [place] [address] MCV Entitic volume (RBC) 86.9 fL Normal 80.0-98.0 [facility] Comment on above: Performed By: #### H EMDF, PT, BMP3M, PHOS3, MG3, CK3 #### [address] #### VD25H #### [facility] [address] [place] [address] Platelet mean volume Entitic volume (Bld) 8.3 fL Normal 7.4-10.4 [facility] Comment on above: Performed By: #### H EMDF, PT, BMP3M, PHOS3, MG3, CK3 #### [address] #### VD25H #### [facility] [address] [place] [address] Platelets #/vol (Bld) 360 10*3/uL Normal 140-440 [facility] Comment on above: Performed By: #### H EMDF, PT, BMP3M, PHOS3, MG3, CK3 #### [address] #### VD25H #### [facility] [address] [place] [address] RBC #/vol (Bld) 3.61 10*6/uL Low 4.40-5.90 [facility] Comment on above: Performed By: #### H EMDF, PT, BMP3M, PHOS3, MG3, CK3 #### [address] #### VD25H #### [facility] [address] [place] [address] WBC #/vol (Bld) 14.7 10*3/uL High 3.6-10.7 [facility] Comment on above: Performed By: #### H EMDF, PT, BMP3M, PHOS3, MG3, CK3 #### [address] #### VD25H #### [facility] [address] [place] [address] Magnesiumon 07-25-2018 Magnesium mass conc 2.1 mg/dL Normal 1.6-2.3 [facility] Comment on above: Performed By: #### H EMDF, PT, BMP3M, PHOS3, MG3, CK3 #### [address] #### VD25H #### [facility] [address] [place] [address] Manual Diffon 07-25-2018 Abs Baso Cnt 0.1 10*3/uL Normal 0.0-0.2 [facility] Comment on above: Performed By: #### H EMDF, PT, BMP3M, PHOS3, MG3, CK3 #### [address] #### VD25H #### [place] [address] [place] [address] Abs Neutrophile Cnt 12.9 10*3/uL High 2.2-8.2 [facility] Comment on above: Performed By: #### H EMDF, PT, BMP3M, PHOS3, MG3, CK3 #### [address] #### VD25H #### [address] [place] [address] Anisocytosis Ql (Bld) Slight Normal [facility] Comment on above: Performed By: #### H EMDF, PT, BMP3M, PHOS3, MG3, CK3 #### [address] #### VD25H #### [place] [address] [place] [address] Bands 4 % High 0-3 [facility] Comment on above: Performed By: #### H EMDF, PT, BMP3M, PHOS3, MG3, CK3 #### [address] #### VD25H #### [facility] [address] [place] [address] Basophils/100 WBC (Bld) 1 % Normal 0-2 [facility] Comment on above: Performed By: #### H EMDF, PT, BMP3M, PHOS3, MG3, CK3 #### [facility] [address] [place], [place] #### VD25H #### [facility] [address] [place] [address] Eosinophils #/vol (Bld) 0.6 10*3/uL High 0.0-0.5 [facility] Comment on above: Performed By: #### H EMDF, PT, BMP3M, PHOS3, MG3, CK3 #### [place] [address] [place], [place] #### VD25H #### [facility] [address] [place] [address] Eosinophils/100 WBC (Bld) 4 % Normal 1-6 [facility] Comment on above: Performed By: #### H EMDF, PT, BMP3M, PHOS3, MG3, CK3 #### [place] [address] [place], [place] #### VD25H #### [facility] [address] [place] [address] Lymphocytes #/vol (Bld) 0.1 10*3/uL Low 1.1-4.5 [facility] Comment on above: Performed By: #### H EMDF, PT, BMP3M, PHOS3, MG3, CK3 #### [place] [address] [place], [place] #### VD25H #### [facility] [address] [place] [address] Lymphocytes/100 WBC (Bld) 1 % Low 20-40 [facility] Comment on above: Performed By: #### H EMDF, PT, BMP3M, PHOS3, MG3, CK3 #### [place] [address] [place], [place] #### VD25H #### [facility] [address] [place] [address] Macrocytosis Slight Normal [facility] Comment on above: Performed By: #### H EMDF, PT, BMP3M, PHOS3, MG3, CK3 #### [address] #### VD25H #### [facility] [address] [place] [address] Metamyelocytes 2 % Abnormal <1 [facility] Comment on above: Performed By: #### H EMDF, PT, BMP3M, PHOS3, MG3, CK3 #### [address] #### VD25H #### [facility] [address] [place] [address] Microcytosis Slight Normal [facility] Comment on above: Performed By: #### H EMDF, PT, BMP3M, PHOS3, MG3, CK3 #### [address] #### VD25H #### [facility] [address] [place] [address] Monocytes #/vol (Bld) 0.6 10*3/uL Normal 0.2-1.1 [facility] Comment on above: Performed By: #### H EMDF, PT, BMP3M, PHOS3, MG3, CK3 #### [address] #### VD25H #### [facility] [address] [place] [address] Monocytes/100 WBC (Bld) 4 % Normal 2-10 [facility] Comment on above: Performed By: #### H EMDF, PT, BMP3M, PHOS3, MG3, CK3 #### [address] #### VD25H #### [facility] [address] [place] [address] RBC morphology finding Nom (Bld) ABNORMAL Normal [facility] Comment on above: Performed By: #### H EMDF, PT, BMP3M, PHOS3, MG3, CK3 #### [place] [address] [facility], [place] #### VD25H #### [facility] [address] [place] [address] Seg Neutrophils 84 % High 40-80 [facility] Comment on above: Performed By: #### H EMDF, PT, BMP3M, PHOS3, MG3, CK3 #### [place] [address] [facility], [place] #### VD25H #### [facility] [address] [place] [address] Cells counted 100 Normal [facility] Comment on above: Performed By: #### H EMDF, PT, BMP3M, PHOS3, MG3, CK3 #### [place] [address] [place] #### VD25H #### [facility] [address] [place] [address] Phosphoruson 07-25-2018 Phosphate mass conc 2.7 mg/dL Normal 2.5-4.5 [facility] Comment on above: Performed By: #### H EMDF, PT, BMP3M, PHOS3, MG3, CK3 #### [address], [place] #### VD25H #### [facility] [address] [place] [address] Triglycerideon 07-25-2018 Triglyceride mass conc 82 mg/dL Normal <150 [facility] Comment on above: Performed By: #### H EMDF, PT, BMP3M, PHOS3, MG3, CK3 #### [place] [address] [facility], [place] #### VD25H #### [facility] [address] [place] [address] Basic Metabolic Panelon 06-30 Calcium mass conc 8.0 mg/dL Low 8.4-10.4 [facility] Comment on above: Performed By: #### H EMDF, PT, BMP3M, PHOS3, MG3, CK3 #### [address] [place], [place] #### VD25H #### [facility] [address] [place] [address] Anion gap molar conc 9 Normal [facility] Comment on above: Performed By: #### H EMDF, PT, BMP3M, PHOS3, MG3, CK3 #### [address] #### VD25H #### [facility] [address] [place] [address] CO2 molar conc 23 mmol/L Normal 22-30 [facility] Comment on above: Performed By: #### H EMDF, PT, BMP3M, PHOS3, MG3, CK3 #### [address] #### VD25H #### [facility] [address] [place] [address] Creatinine mass conc 0.71 mg/dL Normal 0.52-1.25 [facility] Comment on above: Performed By: #### H EMDF, PT, BMP3M, PHOS3, MG3, CK3 #### [address] #### VD25H #### [facility] [address] [place] [address] GFR/1.73 sq M predicted among blacks MDRD vol rate/area (S/P/Bld) mL/min/{1.73_m2} Normal >60 [facility] Comment on above: Performed By: #### H EMDF, PT, BMP3M, PHOS3, MG3, CK3 #### [address] [place], [place] #### VD25H #### [facility] [address] [place] [address] GFR/1.73 sq M predicted among non-blacks MDRD vol rate/area (S/P/Bld) mL/min/{1.73_m2} Normal >60 [facility] Comment on above: Result Comment: Sour ce- MDRD equation with creatinine calibration to IDMS(NKDEP) eGFR not recommended for drug dose adjustment Performed By: #### H EMDF, PT, BMP3M, PHOS3, MG3, CK3 #### [facility] [address] [place], [place] #### VD25H #### [facility] [address] [place] [address] Glucose mass conc 160 mg/dL High 70-100 [facility] Comment on above: Performed By: #### H EMDF, PT, BMP3M, PHOS3, MG3, CK3 #### [place] [address] [place], [place] #### [id number] #### [facility] [address] [place] [address] Urea nitrogen mass conc 28 mg/dL High 7-20 [facility] Comment on above: Performed By: #### H EMDF, PT, BMP3M, PHOS3, MG3, CK3 #### [place] [address] [place], [place] #### [id number] #### [facility] [address] [place] [address] Chloride molar conc 109 mmol/L High 98-107 [facility] Comment on above: Performed By: #### H EMDF, PT, BMP3M, PHOS3, MG3, CK3 #### [place] [address] [place], [place] #### VD25H #### [facility] [address] [place] [address] Potassium molar conc 3.7 mmol/L Normal 3.5-5.1 [facility] Comment on above: Performed By: #### H EMDF, PT, BMP3M, PHOS3, MG3, CK3 #### [address] [place], [place] #### VD25H #### [facility] [address] [place] [address] Sodium molar conc 141 mmol/L Normal 135-145 [facility] Comment on above: Performed By: #### H EMDF, PT, BMP3M, PHOS3, MG3, CK3 #### [facility] [address] [place] [address] #### VD25H #### [facility] [address] [place] [address] CR Chest Portableon 07-25-19 19 CR Chest Portable Patient Name: KATHYA HOOPER Diagnostic Radiology Exam Date/Time 07/24/2018 13:12:47 EDT Exam CR Chest Portable Ordering Physician DO WOLFF KATHRYN C Accession Number [id number] CPT4 Codes 07612 () Reason For Exam line placement Report [...] Transcribed Date and Time: 07/24/2018 3:10 Normal [facility] CR Chest Portable Patient Name: KATHYA HOOPER Diagnostic Radiology Exam Date/Time 07/24/2018 07:11:26 EDT Exam CR Chest Portable Ordering Physician MARIA EUGENIA PEREZ Accession Number [id number] CPT4 Codes 10899 () Reason For Exam ETT placement Report [...] Transcribed Date and Time: 07/24/2018 7:31 Normal [facility] CULT./ST. RESPIRATORYon 06-30 CULT./ST. RESPIRATORY CULT./ST. [...] 1 S Trimeth/Sulfa(CHRISTI) <= 20 S Normal [facility] Comment on above: Order Comment: Speci men Source Comment:Endotracheal Performed By: #### H EMDF, PT, BMP3M, PHOS3, MG3, CK3 #### [facility] [address] [place] [address] #### VD25H #### [facility] [address] [place] [address] CULTURE URINEon 07-24-2018 CULTURE URINE 1 Organism [...] 4 S Trimeth/Sulfa(CHRISTI) <= 20 S Normal [facility] Comment on above: Order Comment: Speci men Source Comment:Urine, clean catch Performed By: #### H EMDF, PT, BMP3M, PHOS3, MG3, CK3 #### [facility] [address] [place], [place] #### VD25H #### [facility] [address] [place] [address] Creatinine, Ur Randomon 06-30 Creatinine, Ur Random 49.5 mg/dL Normal No [facility] Comment on above: Performed By: #### H EMDF, PT, BMP3M, PHOS3, MG3, CK3 #### [address] [address] #### VD25H #### [facility] [address] [place] [address] Glucose,Bedsideon 07-24-2018 Glucose mass conc 124 mg/dL High 70-100 [facility] Comment on above: Result Comment: Test performed by glucose meter. Results may be 10%-15% lower than serum/plasma values. (CLIA ID [id number]) Performed By: #### H EMDF, PT, BMP3M, PHOS3, MG3, CK3 #### [facility] [address] [place] [address] #### VD25H #### [facility] [address] [place] [address] Glucose mass conc 152 mg/dL High 70-100 [facility] Comment on above: Result Comment: Test performed by glucose meter. Results may be 10%-15% lower than serum/plasma values. (CLIA ID [id number]) Performed By: #### H EMDF, PT, BMP3M, PHOS3, MG3, CK3 #### [facility] [address] #### VD25H #### [facility] [address] [place] [address] Glucose mass conc 149 mg/dL High 70-100 [facility] Comment on above: Result Comment: Test performed by glucose meter. Results may be 10%-15% lower than serum/plasma values. (CLIA ID [id number]) Performed By: #### H EMDF, PT, BMP3M, PHOS3, MG3, CK3 #### [facility] [address] #### VD25H #### [facility] [employer] [address] [place] [address] Hemogram w/ Autodiffon 07-24 Erythrocyte distribution width Ratio (RBC) 13.7 % Normal 11.5-14.5 [facility] Comment on above: Performed By: #### H EMDF, PT, BMP3M, PHOS3, MG3, CK3 #### [facility] [address] #### VD25H #### [facility] [employer] [address] [place] [address] Hematocrit Volume Fraction (Bld) 31.4 % Low 40.0-52.0 [facility] Comment on above: Performed By: #### H EMDF, PT, BMP3M, PHOS3, MG3, CK3 #### [facility] [address] #### VD25H #### [facility] [facility] [address] [place] [address] Hemoglobin mass conc (Bld) 10.7 g/dL Low 13.0-18.0 [facility] Comment on above: Performed By: #### H EMDF, PT, BMP3M, PHOS3, MG3, CK3 #### [address] #### VD25H #### [facility] [address] [place] [address] MCH Entitic mass (RBC) 29.4 pg Normal 26.0-34.0 [facility] Comment on above: Performed By: #### H EMDF, PT, BMP3M, PHOS3, MG3, CK3 #### [address] #### VD25H #### [facility] [address] [place] [address] MCHC mass conc (RBC) 33.9 % Normal 32.0-36.0 [facility] Comment on above: Performed By: #### H EMDF, PT, BMP3M, PHOS3, MG3, CK3 #### [address] #### VD25H #### [facility] [address] [place] [address] MCV Entitic volume (RBC) 86.8 fL Normal 80.0-98.0 [facility] Comment on above: Performed By: #### H EMDF, PT, BMP3M, PHOS3, MG3, CK3 #### [address] #### VD25H #### [facility] [address] [place] [address] Platelet mean volume Entitic volume (Bld) 8.6 fL Normal 7.4-10.4 [facility] Comment on above: Performed By: #### H EMDF, PT, BMP3M, PHOS3, MG3, CK3 #### [address] #### VD25H #### [facility] [address] [place] [address] Platelets #/vol (Bld) 304 10*3/uL Normal 140-440 [facility] Comment on above: Performed By: #### H EMDF, PT, BMP3M, PHOS3, MG3, CK3 #### [facility] [address] [place] #### VD25H #### [facility] [address] [place] [address] RBC #/vol (Bld) 3.62 10*6/uL Low 4.40-5.90 [facility] Comment on above: Performed By: #### H EMDF, PT, BMP3M, PHOS3, MG3, CK3 #### [address] #### VD25H #### [facility] [address] [place], [place] [address] WBC #/vol (Bld) 14.0 10*3/uL High 3.6-10.7 [facility] Comment on above: Performed By: #### H EMDF, PT, BMP3M, PHOS3, MG3, CK3 #### [address] #### VD25H #### [facility] [address] [place] [address] Magnesiumon 07-24-2018 Magnesium mass conc 2.2 mg/dL Normal 1.6-2.3 [facility] Comment on above: Performed By: #### H EMDF, PT, BMP3M, PHOS3, MG3, CK3 #### [address] #### VD25H #### [facility] [address] [place] [address] Manual Diffon 07-24-2018 Abs Baso Cnt 0.0 10*3/uL Normal 0.0-0.2 [facility] Comment on above: Performed By: #### H EMDF, PT, BMP3M, PHOS3, MG3, CK3 #### [address] #### VD25H #### [facility] [address] [place] [address] Abs Neutrophile Cnt 12.2 10*3/uL High 2.2-8.2 [facility] Comment on above: Performed By: #### H EMDF, PT, BMP3M, PHOS3, MG3, CK3 #### [address] [place], [place] #### VD25H #### [facility] [address] [place] [address] Eosinophils #/vol (Bld) 0.4 10*3/uL Normal 0.0-0.5 [facility] Comment on above: Performed By: #### H EMDF, PT, BMP3M, PHOS3, MG3, CK3 #### [address] #### VD25H #### [facility] [address] [place] [address] Eosinophils/100 WBC (Bld) 3 % Normal 1-6 [facility] Comment on above: Performed By: #### H EMDF, PT, BMP3M, PHOS3, MG3, CK3 #### [address] [place] #### VD25H #### [facility] [address] [place] [address] Lymphocytes #/vol (Bld) 1.0 10*3/uL Low 1.1-4.5 [facility] Comment on above: Performed By: #### H EMDF, PT, BMP3M, PHOS3, MG3, CK3 #### [address] #### VD25H #### [facility] [address] [place] [address] Lymphocytes/100 WBC (Bld) 7 % Low 20-40 [facility] Comment on above: Performed By: #### H EMDF, PT, BMP3M, PHOS3, MG3, CK3 #### [address] [place], [place] #### VD25H #### [facility] [address] [place] [address] Monocytes #/vol (Bld) 0.4 10*3/uL Normal 0.2-1.1 [facility] Comment on above: Performed By: #### H EMDF, PT, BMP3M, PHOS3, MG3, CK3 #### [facility] [address] [place] #### VD25H #### [facility] [address] [place] [address] Monocytes/100 WBC (Bld) 3 % Normal 2-10 [facility] Comment on above: Performed By: #### H EMDF, PT, BMP3M, PHOS3, MG3, CK3 #### [address] [place] #### VD25H #### [facility] [address] [place] [address] RBC morphology finding Nom (Bld) Normal Normal [facility] Comment on above: Performed By: #### H EMDF, PT, BMP3M, PHOS3, MG3, CK3 #### [address] [place] #### VD25H #### [facility] [address] [place] [address] Seg Neutrophils 87 % High 40-80 [facility] Comment on above: Performed By: #### H EMDF, PT, BMP3M, PHOS3, MG3, CK3 #### [address] [place] #### VD25H #### [facility] [address] [place] [address] Bands 0 % Normal 0-3 [facility] Comment on above: Performed By: #### H EMDF, PT, BMP3M, PHOS3, MG3, CK3 #### [address] [place] #### VD25H #### [facility] [address] [place] [address] Basophils/100 WBC (Bld) 0 % Normal 0-2 [facility] Comment on above: Performed By: #### H EMDF, PT, BMP3M, PHOS3, MG3, CK3 #### [address] [place] #### VD25H #### [facility] [address] [place] [address] Cells counted 100 Normal [facility] Comment on above: Performed By: #### H EMDF, PT, BMP3M, PHOS3, MG3, CK3 #### [address] #### VD25H #### [place] [address] [place] [address] Phosphoruson 07-24-2018 Phosphate mass conc 2.7 mg/dL Normal 2.5-4.5 [facility] Comment on above: Performed By: #### H EMDF, PT, BMP3M, PHOS3, MG3, CK3 #### [address] #### VD25H #### [place] [address] [place] [address] Triglycerideon 07-24-2018 Triglyceride mass conc 78 mg/dL Normal <150 [facility] Comment on above: Performed By: #### H EMDF, PT, BMP3M, PHOS3, MG3, CK3 #### [address] [place] #### VD25H #### [facility] [address] [place] [address] Urea Nitrogen,Ur Randomon Urea nitrogen mass conc 1199 mg/dL Normal No Range [facility] Comment on above: Performed By: #### H EMDF, PT, BMP3M, PHOS3, MG3, CK3 #### [address] #### VD25H #### [place] [address] [place] [address] Add on test from HISon 07-23 Add on test from HIS Accepted Normal [facility] Comment on above: Result Comment: Spec imen available & acceptable for analysis. Performed By: #### H EMDF, PT, BMP3M, PHOS3, MG3, CK3 #### [address] #### VD25H #### [facility] [address] [place] [address] Arterial Blood Gaseson 07-23 CO2 molar conc 23.0 mmol/L Normal 23.0-27.0 [facility] Comment on above: Performed By: #### H EMDF, PT, BMP3M, PHOS3, MG3, CK3 #### [address] #### VD25H #### [place] [address] [place] [address] HCO3 molar conc (Bld) 22.0 mmol/L Normal 21.0-25.0 [facility] Comment on above: Performed By: #### H EMDF, PT, BMP3M, PHOS3, MG3, CK3 #### [address] #### VD25H #### [place] [address] [place] [address] Hemoglobin mass conc (Bld) 10.9 g/dL Normal ScreenOnly [facility] Comment on above: Performed By: #### H EMDF, PT, BMP3M, PHOS3, MG3, CK3 #### [address] #### VD25H #### [place] [address] [place] [address] Oxygen ppres (Bld) 102.4 mm[Hg] High 80.0-100.0 [facility] Comment on above: Performed By: #### H EMDF, PT, BMP3M, PHOS3, MG3, CK3 #### [address] #### VD25H #### [facility] [address] [place] [address] Oxygen saturation in Blood 97.7 % Normal 95.0-100.0 [facility] Comment on above: Performed By: #### H EMDF, PT, BMP3M, PHOS3, MG3, CK3 #### [address] [place], [place] #### VD25H #### [facility] [address] [place] [address] pCO2 34.4 mm[Hg] Low 35.0-45.0 [facility] Comment on above: Performed By: #### H EMDF, PT, BMP3M, PHOS3, MG3, CK3 #### [address] #### VD25H #### [place] [address] [place] [address] pH (Bld) 7.423 Normal 7.350-7.450 [facility] Comment on above: Performed By: #### H EMDF, PT, BMP3M, PHOS3, MG3, CK3 #### [address] #### VD25H #### [facility] [address] [place] [address] Std Base Excess -1.9 mmol/L Normal -3.0-3.[address] [facility] Comment on above: Performed By: #### H EMDF, PT, BMP3M, PHOS3, MG3, CK3 #### [address] [place], [place] #### VD25H #### [facility] [address] [place] [address] FIO2 .30 Normal [facility] Comment on above: Performed By: #### H EMDF, PT, BMP3M, PHOS3, MG3, CK3 #### [address] #### VD25H #### [facility] [address] [place] [address] Basic Metabolic Panelon 03-2 Anion gap molar conc 12 Normal [facility] Comment on above: Performed By: #### H EMDF, PT, BMP3M, PHOS3, MG3, CK3 #### [address] [place] #### VD25H #### [facility] [address] [place] [address] Calcium mass conc 7.5 mg/dL Low 8.4-10.4 [facility] Comment on above: Performed By: #### H EMDF, PT, BMP3M, PHOS3, MG3, CK3 #### [address] [place] #### VD25H #### [place] [address] [place] [address] CO2 molar conc 23 mmol/L Normal 22-30 [facility] Comment on above: Performed By: #### H EMDF, PT, BMP3M, PHOS3, MG3, CK3 #### [address] [place] #### VD25H #### [facility] [address] [place] [address] Glucose mass conc 148 mg/dL High 70-100 [facility] Comment on above: Performed By: #### H EMDF, PT, BMP3M, PHOS3, MG3, CK3 #### [address] [place] #### VD25H #### [facility] [address] [place] [address] Urea nitrogen mass conc 82 mg/dL High 7-20 [facility] Comment on above: Performed By: #### H EMDF, PT, BMP3M, PHOS3, MG3, CK3 #### [address] [place] #### VD25H #### [place] [address] [place] [address] Creatinine mass conc 3.01 mg/dL High 0.52-1.25 [facility] Comment on above: Performed By: #### H EMDF, PT, BMP3M, PHOS3, MG3, CK3 #### [address] #### VD25H #### [facility] [address] [place] [address] GFR/1.73 sq M predicted among blacks MDRD vol rate/area (S/P/Bld) 25.8 mL/min/{1.73_m2} Normal >60 [facility] Comment on above: Performed By: #### H EMDF, PT, BMP3M, PHOS3, MG3, CK3 #### [address] #### VD25H #### [facility] [address] [place] [address] GFR/1.73 sq M predicted among non-blacks MDRD vol rate/area (S/P/Bld) 21.3 mL/min/{1.73_m2} Normal >60 [facility] Comment on above: Result Comment: Sour ce- MDRD equation with creatinine calibration to IDMS(NKDEP) eGFR not recommended for drug dose adjustment Performed By: #### H EMDF, PT, BMP3M, PHOS3, MG3, CK3 #### [address] #### VD25H #### [facility] [address] [place] [address] Chloride molar conc 106 mmol/L Normal 98-107 [facility] Comment on above: Performed By: #### H EMDF, PT, BMP3M, PHOS3, MG3, CK3 #### [address] #### VD25H #### [facility] [address] [place] [address] Potassium molar conc 4.2 mmol/L Normal 3.5-5.1 [facility] Comment on above: Performed By: #### H EMDF, PT, BMP3M, PHOS3, MG3, CK3 #### [facility] [address] [place] [address] #### VD25H #### [facility] [address] [place] [address] Sodium molar conc 141 mmol/L Normal 135-145 [facility] Comment on above: Performed By: #### H EMDF, PT, BMP3M, PHOS3, MG3, CK3 #### [facility] [address] [place] [address] #### VD25H #### [facility] [address] [place] [address] CR Chest Portableon 07-24-19 CR Chest Portable Patient Name: KATHYA HOOPER Diagnostic Radiology Exam Date/Time 07/23/2018 07:06:03 EDT Exam CR Chest Portable Ordering Physician MARIA EUGENIA PEREZ Accession Number [id number] CPT4 Codes 79832 () Reason For Exam ETT placement Report Indication: Shortness of breath. A frontal view of the chest timed 06 is compared to the study dated 07/22/2018. [...] Transcribed Date and Time: 07/23/2018 7:58 Normal [facility] Creatinine, Ur Randomon 06-30 Creatinine, Ur Random 56.8 mg/dL Normal No Range [facility] Comment on above: Performed By: #### H EMDF, PT, BMP3M, PHOS3, MG3, CK3 #### [facility] [address] [place], [place] #### VD25H #### [facility] [address] [place] [address] Glucose,Bedsideon 07-23-2018 Glucose mass conc 116 mg/dL High 70-100 [facility] Comment on above: Result Comment: Test performed by glucose meter. Results may be 10%-15% lower than serum/plasma values. (CLIA ID [id number]) Performed By: #### H EMDF, PT, BMP3M, PHOS3, MG3, CK3 #### [facility] [place], [place] #### VD25H #### [facility] [address] [place] [address] Glucose mass conc 139 mg/dL High 70-100 [facility] Comment on above: Result Comment: Test performed by glucose meter. Results may be 10%-15% lower than serum/plasma values. (CLIA ID [id number]) Performed By: #### H EMDF, PT, BMP3M, PHOS3, MG3, CK3 #### [facility] [address] [place], [place] #### VD25H #### [facility] [address] [place] [address] Glucose mass conc 140 mg/dL High 70-100 [facility] Comment on above: Result Comment: Test performed by glucose meter. Results may be 10%-15% lower than serum/plasma values. (CLIA ID [id number]) Performed By: #### H EMDF, PT, BMP3M, PHOS3, MG3, CK3 #### [facility] [address] [place], [place] #### VD25H #### [facility] [address] [place] [address] Glucose mass conc 140 mg/dL High 70-100 [facility] Comment on above: Result Comment: Test performed by glucose meter. Results may be 10%-15% lower than serum/plasma values. (CLIA ID [id number]) Performed By: #### H EMDF, PT, BMP3M, PHOS3, MG3, CK3 #### [address] #### VD25H #### [facility] [address] [place] [address] Hemogram w/ Autodiffon 07-23 Abs Baso Cnt 0.0 10*3/uL Normal 0.0-0.2 [facility] Comment on above: Performed By: #### H EMDF, PT, BMP3M, PHOS3, MG3, CK3 #### [address] #### VD25H #### [facility] [address] [place] [address] Abs Neutrophile Cnt 16.2 10*3/uL High 1.8-7.0 [facility] Comment on above: Performed By: #### H EMDF, PT, BMP3M, PHOS3, MG3, CK3 #### [address] #### VD25H #### [facility] [address] [place] [address] Basophils/100 WBC (Bld) 0.3 % Normal 0.0-2.0 [facility] Comment on above: Performed By: #### H EMDF, PT, BMP3M, PHOS3, MG3, CK3 #### [address] #### VD25H #### [facility] [address] [address] Eosinophils #/vol (Bld) 0.2 10*3/uL Normal 0.0-0.5 [facility] Comment on above: Performed By: #### H EMDF, PT, BMP3M, PHOS3, MG3, CK3 #### [address] #### VD25H #### [facility] [address] [place] [address] Eosinophils/100 WBC (Bld) 1.2 % Normal 1.0-6.0 [facility] Comment on above: Performed By: #### H EMDF, PT, BMP3M, PHOS3, MG3, CK3 #### [place] [address] [place], [place] #### VD25H #### [facility] [address] [place] [address] Erythrocyte distribution width Ratio (RBC) 13.9 % Normal 11.5-14.5 [facility] Comment on above: Performed By: #### H EMDF, PT, BMP3M, PHOS3, MG3, CK3 #### [place] [address] [place], [place] #### VD25H #### [facility] [address] [place] [address] Granulocytes/100 WBC (Bld) 86.8 % High 40.0-80.0 [facility] Comment on above: Performed By: #### H EMDF, PT, BMP3M, PHOS3, MG3, CK3 #### [place] [place], [place] #### VD25H #### [facility] [address] [place] [address] Hematocrit Volume Fraction (Bld) 26.7 % Low 40.0-52.0 [facility] Comment on above: Performed By: #### H EMDF, PT, BMP3M, PHOS3, MG3, CK3 #### [place] [place] #### VD25H #### [facility] [address] [place] [address] Hemoglobin mass conc (Bld) 8.9 g/dL Low 13.0-18.0 [facility] Comment on above: Performed By: #### H EMDF, PT, BMP3M, PHOS3, MG3, CK3 #### [place] [address] [place], [place] #### VD25H #### [facility] [address] [place] [address] Lymphocytes #/vol (Bld) 1.2 10*3/uL Normal 1.0-4.3 [facility] Comment on above: Performed By: #### H EMDF, PT, BMP3M, PHOS3, MG3, CK3 #### [address] [place], [place] #### VD25H #### [facility] [address] [place] [address] Lymphocytes/100 WBC (Bld) 6.6 % Low 20.0-40.0 [facility] Comment on above: Performed By: #### H EMDF, PT, BMP3M, PHOS3, MG3, CK3 #### [address] #### VD25H #### [facility] [address] [place] [address] MCH Entitic mass (RBC) 29.5 pg Normal 26.0-34.0 [facility] Comment on above: Performed By: #### H EMDF, PT, BMP3M, PHOS3, MG3, CK3 #### [address] #### VD25H #### [facility] [address] [place] [address] MCHC mass conc (RBC) 33.5 % Normal 32.0-36.0 [facility] Comment on above: Performed By: #### H EMDF, PT, BMP3M, PHOS3, MG3, CK3 #### [address] #### VD25H #### [facility] [address] [address] MCV Entitic volume (RBC) 87.9 fL Normal 80.0-98.0 [facility] Comment on above: Performed By: #### H EMDF, PT, BMP3M, PHOS3, MG3, CK3 #### [facility] [address] [place], [place] #### VD25H #### [facility] [address] [place] [address] Monocytes #/vol (Bld) 1.0 10*3/uL High 0.0-0.8 [facility] Comment on above: Performed By: #### H EMDF, PT, BMP3M, PHOS3, MG3, CK3 #### [place] [place], [place] #### VD25H #### [facility] [address] [place] [address] Monocytes/100 WBC (Bld) 5.1 % Normal 2.0-10.0 [facility] Comment on above: Performed By: #### H EMDF, PT, BMP3M, PHOS3, MG3, CK3 #### [address] #### VD25H #### [facility] [address] [place] [address] Platelet mean volume Entitic volume (Bld) 8.2 fL Normal 7.4-10.4 [facility] Comment on above: Performed By: #### H EMDF, PT, BMP3M, PHOS3, MG3, CK3 #### [address] #### VD25H #### [facility] [address] [place] [address] Platelets #/vol (Bld) 294 10*3/uL Normal 140-440 [facility] Comment on above: Performed By: #### H EMDF, PT, BMP3M, PHOS3, MG3, CK3 #### [address] #### VD25H #### [facility] [address] [place] [address] RBC #/vol (Bld) 3.03 10*6/uL Low 4.40-5.90 [facility] Comment on above: Performed By: #### H EMDF, PT, BMP3M, PHOS3, MG3, CK3 #### [facility] [address] [place], [place] #### VD25H #### [facility] [address] [place] [address] WBC #/vol (Bld) 18.7 10*3/uL High 3.6-10.7 [facility] System System Comment on above: Performed By: #### H EMDF, PT, BMP3M, PHOS3, MG3, CK3 #### [address] [place], [place] #### VD25H #### [facility] [address] [place] [address] LDHon 07-23-2018 LDH 342 U/L High 65-175 [facility] Comment on above: Performed By: #### H EMDF, PT, BMP3M, PHOS3, MG3, CK3 #### [address] [place], [place] #### VD25H #### [facility] [address] [place] [address] Magnesiumon 07-23-2018 Magnesium mass conc 2.5 mg/dL High 1.6-2.3 [facility] Comment on above: Performed By: #### H EMDF, PT, BMP3M, PHOS3, MG3, CK3 #### [address] [place], [place] #### VD25H #### [facility] [address] [place] [address] Phosphoruson 07-23-2018 Phosphate mass conc 4.5 mg/dL Normal 2.5-4.5 [facility] Comment on above: Performed By: #### H EMDF, PT, BMP3M, PHOS3, MG3, CK3 #### [address] [place], [place] #### VD25H #### [facility] [address] [place] [address] Protein, Total Body Fluidon 07-23-2018 Protein,Total-Body Fld 2.7 g/dL Normal No Range [facility] Comment on above: Performed By: #### H EMDF, PT, BMP3M, PHOS3, MG3, CK3 #### [facility] [address] [place], [place] #### VD25H #### [facility] [address] [place] [address] Triglycerideon 07-23-2018 Triglyceride mass conc 63 mg/dL Normal <150 [facility] Comment on above: Performed By: #### H EMDF, PT, BMP3M, PHOS3, MG3, CK3 #### [address] [place], [place] #### VD25H #### [facility] [address] [place] [address] Urea Nitrogen,Ur Randomon Urea nitrogen mass conc 677 mg/dL Normal No Range [facility] Comment on above: Performed By: #### H EMDF, PT, BMP3M, PHOS3, MG3, CK3 #### [address] [place], [place] #### VD25H #### [facility] [address] [place] [address] Urinalysis,Macroon 9 Appearance Nom (U) cloudy Normal Clear [facility] Comment on above: Performed By: #### H EMDF, PT, BMP3M, PHOS3, MG3, CK3 #### [facility] [address] [place], [place] #### VD25H #### [facility] [address] [place] [address] Bilirubin,Ur Negative Normal Negative [facility] Comment on above: Performed By: #### H EMDF, PT, BMP3M, PHOS3, MG3, CK3 #### [address] [place], [place] #### VD25H #### [facility] [address] [place] [address] Color Nom (U) dk.yel Normal Lt. Yellow [facility] Comment on above: Performed By: #### H EMDF, PT, BMP3M, PHOS3, MG3, CK3 #### [facility] [address] [place], [place] #### VD25H #### [facility] [address] [place] [address] Glucose Ql (U) NORM Normal Negative [facility] System Comment on above: Performed By: #### H EMDF, PT, BMP3M, PHOS3, MG3, CK3 #### [address] [place] #### VD25H #### [facility] [address] [place] [address] Ketone,Urine Negative Normal Negative [facility] Comment on above: Performed By: #### H EMDF, PT, BMP3M, PHOS3, MG3, CK3 #### [address] [place] #### VD25H #### [facility] [address] [place] [address] Nitrite Ql (U) Negative Normal Negative [facility] Comment on above: Performed By: #### H EMDF, PT, BMP3M, PHOS3, MG3, CK3 #### [address] [place] #### VD25H #### [facility] [address] [place] [address] Occult Blood,Ur 250 {RBC}/uL Normal Negative [facility] System Comment on above: Performed By: #### H EMDF, PT, BMP3M, PHOS3, MG3, CK3 #### [address] #### VD25H #### [facility] [address] [place] [address] pH (U) 5.0 Normal 5.0-8.0 [facility] [place] [facility] Comment on above: Performed By: #### H EMDF, PT, BMP3M, PHOS3, MG3, CK3 #### [address] #### VD25H #### [facility] [address] [place] [address] Protein mass conc (U) 75 mg/dL Normal Negative [facility] Comment on above: Performed By: #### H EMDF, PT, BMP3M, PHOS3, MG3, CK3 #### [address] #### VD25H #### [facility] [address] [place] [address] Specific [place]or[place],Urine 1.015 Normal 1.005-1.030 [facility] Comment on above: Performed By: #### H EMDF, PT, BMP3M, PHOS3, MG3, CK3 #### [address] #### VD25H #### [address] [place] [address] Urobilinogen Qn (U) NORM Normal 0-1 [facility] Comment on above: Performed By: #### H EMDF, PT, BMP3M, PHOS3, MG3, CK3 #### [address] #### VD25H #### [address] [place] [address] WBC #/vol (Bld) 2 + Normal Negative [facility] Comment on above: Performed By: #### H EMDF, PT, BMP3M, PHOS3, MG3, CK3 #### [address] #### VD25H #### [address] [place] [address] Urinalysis,Microscopicon Bacteria LM.HPF #/area (Urine sed) Moderate (6-50) Normal Negative [facility] Comment on above: Performed By: #### H EMDF, PT, BMP3M, PHOS3, MG3, CK3 #### [facility] [address] [place] #### VD25H #### [facility] [address] [place] [address] Epithelial cells LM.HPF #/area (Urine sed) 0 - 2 Normal 3-5 [facility] [place] [facility] Comment on above: Performed By: #### H EMDF, PT, BMP3M, PHOS3, MG3, CK3 #### [address] [place] #### VD25H #### [facility] [address] [place] [address] RBC LM.HPF #/area (Urine sed) /[HPF] Normal 0-2 [facility] [place] [facility] Comment on above: Performed By: #### H EMDF, PT, BMP3M, PHOS3, MG3, CK3 #### [address] [place] #### VD25H #### [facility] [address] [place] [address] Volume,Urine 8-12 ml Normal [facility] Comment on above: Performed By: #### H EMDF, PT, BMP3M, PHOS3, MG3, CK3 #### [address] #### VD25H #### [facility] [address] [place] [address] WBC LM.HPF #/area (Urine sed) 26 - 50 Normal 0-5 [facility] [place] [facility] Comment on above: Performed By: #### H EMDF, PT, BMP3M, PHOS3, MG3, CK3 #### [address] #### VD25H #### [facility] [address] [place] [address] VL Venous Duplex US Lower Ex t Bilateralon 07-23-2018 VL Venous Duplex US Lower Ext Bilateral Patient Name: KATHYA HOOPER Ultrasound Exam Date/Time 07/23/2018 11:16:11 EDT Exam VL Venous Duplex US Lower Ext Bilateral Ordering Physician ETIENNE MARTÍNEZ JULIE Accession Number [id number] CPT4 Codes 16677 () Reason For Exam edema Report [facility] --- Lower Extremity Venous Duplex Report Patient Name: Kathya Hooper : 1955 Study Date: 07/23/2018 W (63yrs) Age: 63 Account: [id number] Gender: M Loc: T209 BP: Ordering: Yesenia Martínez Technologist: Ordering Physician: Yesenia Martínez Patient Registration Supervisor: León Chaidez RVT, [facility] Interpreting Physician: Vamsi York MD --- Location: [facility] --- INDICATIONS: Edema. bilateral calf [...] performed. The images were obtained using a EverTrue E9 vascular ultrasound machine. --- VENOUS FLOW [...] --+ Electronically signed by: Vamsi York MD [id number] Final Dictated: 07/23/2018 3:00 pm Dictating Physician: VAMSI YORK Signed Date and Time: 07/23/2018 3:00 pm Signed by: VAMSI YORK Normal [facility] Vancomycin Troughon 07-24-19 Vancomycin Trough 10.8 ug/mL Low 15.0-20.0 [facility] Comment on above: Result Comment: . Performed By: #### H EMDF, PT, BMP3M, PHOS3, MG3, CK3 #### [facility] [address] [place] [address] #### VD25H #### [facility] [address] [place] [address] Basic Metabolic Panelon 03-2 4-2019 Calcium mass conc 7.9 mg/dL Low 8.4-10.4 [facility] Comment on above: Performed By: #### H EMDF, PT, BMP3M, PHOS3, MG3, CK3 #### [facility] [address] [facility], [place] #### VD25H #### [facility] [address] [place] [address] Anion gap molar conc 11 Normal [facility] Comment on above: Performed By: #### H EMDF, PT, BMP3M, PHOS3, MG3, CK3 #### [address] [facility], [place] #### VD25H #### [facility] [address] [place] [address] CO2 molar conc 28 mmol/L Normal 22-30 [facility] Comment on above: Performed By: #### H EMDF, PT, BMP3M, PHOS3, MG3, CK3 #### [address] [facility], [place] #### VD25H #### [facility] [address] [place] [address] Glucose mass conc 134 mg/dL High 70-100 [facility] Comment on above: Performed By: #### H EMDF, PT, BMP3M, PHOS3, MG3, CK3 #### [address] [facility], [place] #### VD25H #### [facility] [address] [place] [address] Urea nitrogen mass conc 51 mg/dL High 7-20 [facility] Comment on above: Performed By: #### H EMDF, PT, BMP3M, PHOS3, MG3, CK3 #### [address] [facility], [place] #### VD25H #### [facility] [address] [place] [address] Creatinine mass conc 1.57 mg/dL High 0.52-1.25 [facility] Comment on above: Performed By: #### H EMDF, PT, BMP3M, PHOS3, MG3, CK3 #### [address] #### VD25H #### [facility] [address] [place] [address] GFR/1.73 sq M predicted among blacks MDRD vol rate/area (S/P/Bld) 54.6 mL/min/{1.73_m2} Normal >60 [facility] Comment on above: Performed By: #### H EMDF, PT, BMP3M, PHOS3, MG3, CK3 #### [address] #### VD25H #### [facility] [address] [place] [address] GFR/1.73 sq M predicted among non-blacks MDRD vol rate/area (S/P/Bld) 45.1 mL/min/{1.73_m2} Normal >60 [facility] Comment on above: Result Comment: Sour ce- MDRD equation with creatinine calibration to IDMS(NKDEP) eGFR not recommended for drug dose adjustment Performed By: #### H EMDF, PT, BMP3M, PHOS3, MG3, CK3 #### [address] #### VD25H #### [facility] [address] [place] [address] Chloride molar conc 107 mmol/L Normal 98-107 [facility] Comment on above: Performed By: #### H EMDF, PT, BMP3M, PHOS3, MG3, CK3 #### [address] #### VD25H #### [facility] [address] [place] [address] Potassium molar conc 3.8 mmol/L Normal 3.5-5.1 [facility] Comment on above: Performed By: #### H EMDF, PT, BMP3M, PHOS3, MG3, CK3 #### [facility] [address] [place] [address] #### VD25H #### [facility] [address] [place] [address] Sodium molar conc 146 mmol/L High 135-145 [facility] Comment on above: Performed By: #### H EMDF, PT, BMP3M, PHOS3, MG3, CK3 #### [facility] [address] [place] [address] #### VD25H #### [facility] [address] [place] [address] CR Abdomen APon 07-22-2018 CR Abdomen AP Patient Name: KATHYA HOOPER Diagnostic Radiology Exam Date/Time 07/22/2018 08:02:02 EDT Exam CR Abdomen AP Ordering Physician MARIA EUGENIA PEREZ Accession Number [id number] CPT4 Codes 15692 () Reason For Exam ileus Report Supine [...] Transcribed Date and Time: 07/22/2018 9:28 Normal [facility] CR Chest Portableon 07-23-19 19 CR Chest Portable Patient Name: KATHYA HOOPER Diagnostic Radiology Exam Date/Time 07/22/2018 16:32:15 EDT Exam CR Chest Portable Ordering Physician MD NATE, [facility] Accession Number [id number] CPT4 Codes 89095 () Reason For Exam Thoracentesis Report Clinical [...] Transcribed Date and Time: 07/22/2018 6:46 Normal [facility] CR Chest Portable Patient Name: KATHYA HOOPER Diagnostic Radiology Exam Date/Time 07/22/2018 06:49:22 EDT Exam CR Chest Portable Ordering Physician MARIA EUGENIA PEREZ Accession Number [id number] CPT4 Codes 98656 () Reason For Exam ETT placement Report [...] Transcribed Date and Time: 07/22/2018 9:31 Normal [facility] CULTURE AND STAIN - FLUIDon 07-22-2018 CULTURE AND STAIN - FLUID CULTURE & STAIN - FLUID --> Status: F No growth at 5 days. STAIN GRAM --> Status: F Moderate polymorphonuclear cells/lpf. Moderate mononuclear cells/lpf No organisms seen. Cytocentrifugation performed. Moderate mononuclear cells/lpf No organisms seen. Cytocentrifugation performed. Normal [facility] Comment on above: Order Comment: Speci men Source Comment:Body Fluid Performed By: #### H EMDF, PT, BMP3M, PHOS3, MG3, CK3 #### [address] [place], [place] #### VD25H #### [facility] [address] [place] [address] Cell Count,Body Fluidon 06-30 Nucleated Cells 259 {cells}/uL Normal [facility] Comment on above: Performed By: #### H EMDF, PT, BMP3M, PHOS3, MG3, CK3 #### [address] #### VD25H #### [facility] [address] [place] [address] RBC Count Body Fld 123 {RBC}/uL Normal [facility] Comment on above: Performed By: #### H EMDF, PT, BMP3M, PHOS3, MG3, CK3 #### [address] #### VD25H #### [facility] [address] [place] [address] Fluid Type thoracentesis Normal [facility] Comment on above: Performed By: #### H EMDF, PT, BMP3M, PHOS3, MG3, CK3 #### [facility] [address] [place] #### VD25H #### [facility] [address] [place] [address] Glucose, Body Fluidon 2018 Fluid Type Thoracentesis Normal [facility] Comment on above: Performed By: #### H EMDF, PT, BMP3M, PHOS3, MG3, CK3 #### [address] [place], [place] #### VD25H #### [facility] [address] [place] [address] Glucose, Body Fluid 136 mg/dL Normal No Range [facility] Comment on above: Performed By: #### H EMDF, PT, BMP3M, PHOS3, MG3, CK3 #### [address] #### VD25H #### [facility] [address] [place] [address] Glucose,Bedsideon 07-22-2018 Glucose mass conc 142 mg/dL High 70-100 [facility] Comment on above: Result Comment: Test performed by glucose meter. Results may be 10%-15% lower than serum/plasma values. (CLIA ID [id number]) Performed By: #### H EMDF, PT, BMP3M, PHOS3, MG3, CK3 #### [address] [place], [place] #### VD25H #### [facility] [address] [place] [address] Glucose mass conc 127 mg/dL High 70-100 [facility] Comment on above: Result Comment: Test performed by glucose meter. Results may be 10%-15% lower than serum/plasma values. (CLIA ID [id number]) Performed By: #### H EMDF, PT, BMP3M, PHOS3, MG3, CK3 #### [address] [place] #### VD25H #### [facility] [address] [place] [address] Glucose mass conc 139 mg/dL High 70-100 [facility] Comment on above: Result Comment: Test performed by glucose meter. Results may be 10%-15% lower than serum/plasma values. (CLIA ID [id number]) Performed By: #### H EMDF, PT, BMP3M, PHOS3, MG3, CK3 #### [facility] [address] [place] [address] #### VD25H #### [facility] [address] [place] [address] Glucose mass conc 124 mg/dL High 70-100 [facility] Comment on above: Result Comment: Test performed by glucose meter. Results may be 10%-15% lower than serum/plasma values. (CLIA ID [id number]) Performed By: #### H EMDF, PT, BMP3M, PHOS3, MG3, CK3 #### [facility] [address] [place] #### VD25H #### [facility] [address] [place] [address] Glucose mass conc 128 mg/dL High 70-100 [facility] Comment on above: Result Comment: Test performed by glucose meter. Results may be 10%-15% lower than serum/plasma values. (CLIA ID [id number]) Performed By: #### H EMDF, PT, BMP3M, PHOS3, MG3, CK3 #### [facility] [address] [place] [address] #### VD25H #### [facility] [address] [place] [address] Glucose mass conc 113 mg/dL High 70-100 [facility] Comment on above: Result Comment: Test performed by glucose meter. Results may be 10%-15% lower than serum/plasma values. (CLIA ID [id number]) Performed By: #### H EMDF, PT, BMP3M, PHOS3, MG3, CK3 #### [facility] [address] [place] #### VD25H #### [facility] [address] [place] [address] Hemogram w/ Autodiffon 07-22 Abs Baso Cnt 0.1 10*3/uL Normal 0.0-0.2 [facility] Comment on above: Performed By: #### H EMDF, PT, BMP3M, PHOS3, MG3, CK3 #### [facility] [address] [place] #### VD25H #### [facility] [address] [place] [address] Abs Neutrophile Cnt 15.2 10*3/uL High 1.8-7.0 [facility] Comment on above: Performed By: #### H EMDF, PT, BMP3M, PHOS3, MG3, CK3 #### [address] #### VD25H #### [facility] [address] [place] [address] Basophils/100 WBC (Bld) 0.6 % Normal 0.0-2.0 [facility] Comment on above: Performed By: #### H EMDF, PT, BMP3M, PHOS3, MG3, CK3 #### [address] #### VD25H #### [facility] [address] [place] [address] Eosinophils #/vol (Bld) 0.2 10*3/uL Normal 0.0-0.5 [facility] Comment on above: Performed By: #### H EMDF, PT, BMP3M, PHOS3, MG3, CK3 #### [address] #### VD25H #### [facility] [address] [place] [address] Eosinophils/100 WBC (Bld) 0.9 % Low 1.0-6.0 [facility] Comment on above: Performed By: #### H EMDF, PT, BMP3M, PHOS3, MG3, CK3 #### [address] #### VD25H #### [facility] [address] [place] [address] Erythrocyte distribution width Ratio (RBC) 13.9 % Normal 11.5-14.5 [facility] Comment on above: Performed By: #### H EMDF, PT, BMP3M, PHOS3, MG3, CK3 #### [address] #### VD25H #### [facility] [address] [place] [address] Granulocytes/100 WBC (Bld) 88.8 % High 40.0-80.0 [facility] Comment on above: Performed By: #### H EMDF, PT, BMP3M, PHOS3, MG3, CK3 #### [address] #### VD25H #### [facility] [address] [place] [address] Hematocrit Volume Fraction (Bld) 31.6 % Low 40.0-52.0 [facility] Comment on above: Performed By: #### H EMDF, PT, BMP3M, PHOS3, MG3, CK3 #### [address] #### VD25H #### [facility] [address] [place] [address] Hemoglobin mass conc (Bld) 10.9 g/dL Low 13.0-18.0 [facility] Comment on above: Performed By: #### H EMDF, PT, BMP3M, PHOS3, MG3, CK3 #### [address] #### VD25H #### [facility] [address] [place] [address] Lymphocytes #/vol (Bld) 1.1 10*3/uL Normal 1.0-4.3 [facility] Comment on above: Performed By: #### H EMDF, PT, BMP3M, PHOS3, MG3, CK3 #### [address] [place], [place] #### VD25H #### [facility] [address] [place] [address] Lymphocytes/100 WBC (Bld) 6.2 % Low 20.0-40.0 [facility] Comment on above: Performed By: #### H EMDF, PT, BMP3M, PHOS3, MG3, CK3 #### [address] #### VD25H #### [facility] [address] [place] [address] MCH Entitic mass (RBC) 31.1 pg Normal 26.0-34.0 [facility] Comment on above: Performed By: #### H EMDF, PT, BMP3M, PHOS3, MG3, CK3 #### [address] #### VD25H #### [facility] [address] [place] [address] MCHC mass conc (RBC) 34.6 % Normal 32.0-36.0 [facility] Comment on above: Performed By: #### H EMDF, PT, BMP3M, PHOS3, MG3, CK3 #### [address] #### VD25H #### [facility] [address] [address] MCV Entitic volume (RBC) 89.9 fL Normal 80.0-98.0 [facility] Comment on above: Performed By: #### H EMDF, PT, BMP3M, PHOS3, MG3, CK3 #### [address] #### VD25H #### [facility] [address] [place] [address] Monocytes #/vol (Bld) 0.6 10*3/uL Normal 0.0-0.8 [facility] Comment on above: Performed By: #### H EMDF, PT, BMP3M, PHOS3, MG3, CK3 #### [facility] [address] [place], [place] #### VD25H #### [facility] [address] [place] [address] Monocytes/100 WBC (Bld) 3.5 % Normal 2.0-10.0 [facility] Comment on above: Performed By: #### H EMDF, PT, BMP3M, PHOS3, MG3, CK3 #### [address] #### VD25H #### [facility] [address] [place] [address] Platelet mean volume Entitic volume (Bld) 7.9 fL Normal 7.4-10.4 [facility] Comment on above: Performed By: #### H EMDF, PT, BMP3M, PHOS3, MG3, CK3 #### [address] #### VD25H #### [facility] [address] [place] [address] Platelets #/vol (Bld) 299 10*3/uL Normal 140-440 [facility] Comment on above: Performed By: #### H EMDF, PT, BMP3M, PHOS3, MG3, CK3 #### [address] #### VD25H #### [facility] [address] [place] [address] RBC #/vol (Bld) 3.52 10*6/uL Low 4.40-5.90 [facility] Comment on above: Performed By: #### H EMDF, PT, BMP3M, PHOS3, MG3, CK3 #### [address] #### VD25H #### [facility] [address] [place] [address] WBC #/vol (Bld) 17.1 10*3/uL High 3.6-10.7 [facility] Comment on above: Performed By: #### H EMDF, PT, BMP3M, PHOS3, MG3, CK3 #### [address] #### VD25H #### [facility] [address] [facility] [place] [place] [address] LDH, Body Fluidon 07-22-2018 LDH, Body Fluid 232 U/L Normal No Range [facility] Comment on above: Performed By: #### H EMDF, PT, BMP3M, PHOS3, MG3, CK3 #### [address] #### VD25H #### [address] [place] [address] Magnesiumon 07-22-2018 Magnesium mass conc 2.6 mg/dL High 1.6-2.3 [facility] Comment on above: Performed By: #### H EMDF, PT, BMP3M, PHOS3, MG3, CK3 #### [address] #### VD25H #### [address] [place] [address] Medical Cytologyon 9 Medical Cytology [id number] DEPARTMENT OF PATHOLOGY AND [facility]ATORY MEDICINE [address] [place] [id number] FINAL MEDICAL CYTOLOGY REPORT NAME: KATHYA HOOPER : 1955 63 Y M BILLING NO.: [id number] LOCATION: 1T2I T2 INPAT T209 PROCEDURE 07/22/2018 [...] characteristics determined by the clinical laboratories of [facility]. They have not been cleared by [...] negativity on decalcified specimens. Case reviewed at [address] [place] [address]. DEPARTMENT OF PATHOLOGY AND LABORATORY MEDICINE [place], [place] [address] Normal [facility] Phosphoruson 07-22-2018 Phosphate mass conc 4.6 mg/dL High 2.5-4.5 [facility] Comment on above: Performed By: #### H EMDF, PT, BMP3M, PHOS3, MG3, CK3 #### [facility] [address] [place], [place] #### VD25H #### [facility] [address] [place] [address] Procalcitoninon 07-22-2018 Protein mass conc 0.27 ng/mL Abnormal <0.10 [facility] Comment on above: Result Comment: (Cor rect ref.range is <0.09 ng/mL) Test performed: [place], [place]. Performed By: #### H EMDF, PT, BMP3M, PHOS3, MG3, CK3 #### [address] #### VD25H #### [facility] [address] [place] [address] Interpretation See Below Normal [facility] Comment on above: Result Comment: PCT <0.50 = Low risk of severe sepsis and/or septic shock. PCT >2.00 = High risk of severe sepsis and/or septic shock. Performed By: #### H EMDF, PT, BMP3M, PHOS3, MG3, CK3 #### [address] #### VD25H #### [facility] [address] [place] [address] STAIN ACID-FASTon 07-22-2018 STAIN ACID-FAST STAIN ACID-FAST --> Status: F No acid-fast bacilli seen in smear. - Method: AFB by Kinyoun Stain - Method: AF[employer] by Kinyoun Stain [facility] Comment on above: Performed By: #### H EMDF, PT, BMP3M, PHOS3, MG3, CK3 #### [address] #### VD25H #### [facility] [address] [place] [address] Triglycerideon 07-22-2018 Triglyceride mass conc 96 mg/dL Normal <150 [facility] Comment on above: Performed By: #### H EMDF, PT, BMP3M, PHOS3, MG3, CK3 #### [facility] [address] [place] [address] #### VD25H #### [facility] [address] [place] [address] US Thora-Aspir Pleura w/ Evelin geon 07-22-2018 US Thora-Aspir Pleura w/ Image Patient Name: KATHYA HOOPER Ultrasound Exam Date/Time 07/22/2018 14:23:28 EDT Exam US Thora-Aspir Pleura w/ Image Ordering Physician MARIA EUGENIA PEREZ Accession Number [id number] CPT4 Codes 81400 () Reason For Exam L thoracentesis Report Reasons for examination: Left pleural effusion. Respiratory insufficiency. Ultrasound was performed of the left hemithorax, localizing the pleural fluid. After obtaining informed consent, sterile preparation, draping, and local anesthetic administration, thoracentesis was performed under direct ultrasonographic guidance with a 5 [place]kin[place] Yueh needle/catheter. A total of 300 mL [...] Transcribed Date and Time: 07/22/2018 2:55 Normal [facility] pH,Misc Body Fluidon 019 pH,Misc 7.996 Normal None Available [facility] Comment on above: Performed By: #### H EMDF, PT, BMP3M, PHOS3, MG3, CK3 #### [facility] [address] [place] [address] #### VD25H #### [facility] [address] [place] [address] Arterial Blood Gaseson 07-21 CO2 molar conc 29.8 mmol/L High 23.0-27.0 [facility] Comment on above: Performed By: #### T SGL #### [facility] [address] [place] [address] HCO3 molar conc (Bld) 28.7 mmol/L High 21.0-25.0 [facility] Comment on above: Performed By: #### T SGL #### [facility] [address] [place] [address] Hemoglobin mass conc (Bld) 11.7 g/dL Normal ScreenOnly [facility] Comment on above: Performed By: #### T SGL #### [facility] [address] [place] [address] Oxygen ppres (Bld) 144.9 mm[Hg] High 80.0-100.0 [facility] Comment on above: Performed By: #### T SGL #### [facility] [address] [place] [address] Oxygen saturation in Blood 98.4 % Normal 95.0-100.0 [facility] Comment on above: Performed By: #### T SGL #### [facility] [address] [place] [address] pCO2 36.8 mm[Hg] Normal 35.0-45.0 [facility] Comment on above: Performed By: #### T SGL #### [facility] [address] [place] [address] pH (Bld) 7.510 High 7.350-7.450 [facility] Comment on above: Performed By: #### T SGL #### [facility] [address] [place] [address] Std Base Excess 5.5 mmol/L High -3.0-3.0 [facility] Comment on above: Performed By: #### T SGL #### [facility] [address] [place] [address] FIO2 .50 Normal [facility] Comment on above: Performed By: #### T SGL #### [address] [address] CR Abdomen APon 07-21-2018 CR Abdomen AP Patient Name: KATHYA HOOPER Diagnostic Radiology Exam Date/Time 07/21/2018 06:41:07 EDT Exam CR Abdomen AP Ordering Physician JOYA ROJAS Accession Number [id number] CPT4 Codes 61860 () Reason For Exam ileus Report Reason [...] Transcribed Date and Time: 07/21/2018 7:23 Normal [facility] CR Chest Portableon 07-22-19 19 CR Chest Portable Patient Name: KATHYA HOOPER Diagnostic Radiology Exam Date/Time 07/21/2018 06:40:50 EDT Exam CR Chest Portable Ordering Physician MARIA EUGENIA PEREZ Accession Number [id number] CPT4 Codes 97539 () Reason For Exam ETT placement Report [...] Transcribed Date and Time: 07/21/2018 5:38 [facility] CR Chest Portable Patient Name: KATHYA HOOPER Diagnostic Radiology Exam Date/Time 07/21/2018 01:11:50 EDT Exam CR Chest Portable Ordering Physician MD GRIFFIN NICHOLAS Accession Number [id number] CPT4 Codes 40483 () Reason For Exam s/p bronch Report [...] Transcribed Date and Time: 07/21/2018 1:26 Normal [facility] Comp Metabolic Panelon 07-21 Calcium mass conc 7.9 mg/dL Low 8.4-10.4 [facility] Comment on above: Performed By: #### T SGL #### [address] [place] [address] ALP enzyme act/vol 85 U/L Normal 38-126 [facility] Comment on above: Performed By: #### T SGL #### [facility] [address] [place] [address] ALT enzyme act/vol 105 U/L High 13-69 [facility] Comment on above: Performed By: #### T SGL #### [facility] [address] [place] [address] Anion gap molar conc 8 Normal [facility] Comment on above: Performed By: #### T SGL #### [facility] [address] [place] [address] AST enzyme act/vol 78 U/L High 15-46 [facility] Comment on above: Performed By: #### T SGL #### [address] [place] [address] Bilirubin mass conc 1.1 mg/dL Normal 0.2-1.3 [facility] Comment on above: Performed By: #### T SGL #### [address] [place] [address] CO2 molar conc 33 mmol/L High 22-30 [facility] Comment on above: Performed By: #### T SGL #### [address] [place] [address] Creatinine mass conc 0.90 mg/dL Normal 0.52-1.25 [facility] Comment on above: Performed By: #### T SGL #### [facility] [address] [place] [address] GFR/1.73 sq M predicted among blacks MDRD vol rate/area (S/P/Bld) mL/min/{1.73_m2} Normal >60 [facility] Comment on above: Performed By: #### T SGL #### [facility] [address] [place] [address] GFR/1.73 sq M predicted among non-blacks MDRD vol rate/area (S/P/Bld) mL/min/{1.73_m2} Normal >60 [facility] Comment on above: Result Comment: Sour ce- MDRD equation with creatinine calibration to IDMS(NKDEP) eGFR not recommended for drug dose adjustment Performed By: #### T SGL #### [facility] [address] [place] [address] Glucose mass conc 113 mg/dL High 70-100 [facility] Comment on above: Performed By: #### T SGL #### [facility] [address] [place] [facility] [place] [address] Protein mass conc 5.6 g/dL Low 6.3-8.2 [facility] Comment on above: Performed By: #### T SGL #### [facility] [address] [place] [address] Urea nitrogen mass conc 28 mg/dL High 7-20 [facility] Comment on above: Performed By: #### T SGL #### [address] [place] [address] Chloride molar conc 104 mmol/L Normal 98-107 [facility] Comment on above: Performed By: #### T SGL #### [address] [place] [address] Potassium molar conc 3.6 mmol/L Normal 3.5-5.1 [facility] Comment on above: Performed By: #### T SGL #### [facility] [address] [place] [address] Sodium molar conc 145 mmol/L Normal 135-145 [facility] Comment on above: Performed By: #### T SGL #### [facility] [address] [place] [facility] [place] [address] Albumin mass conc 2.8 g/dL Low 3.5-5.0 [facility] Comment on above: Performed By: #### T SGL #### [facility] [address] [place] [place] [facility] [place] [address] Glucose,Bedsideon 07-21-2018 Glucose mass conc 124 mg/dL High 70-100 [facility] Comment on above: Result Comment: Test performed by glucose meter. Results may be 10%-15% lower than serum/plasma values. (CLIA ID [id number]) Performed By: #### H EMDF, PT, BMP3M, PHOS3, MG3, CK3 #### [facility] [address] [place] #### VD25H #### [facility] [address] [place] [address] Glucose mass conc 151 mg/dL High 70-100 [facility] Comment on above: Result Comment: Test performed by glucose meter. Results may be 10%-15% lower than serum/plasma values. (CLIA ID [id number]) Performed By: #### H EMDF, PT, BMP3M, PHOS3, MG3, CK3 #### [address] #### VD25H #### [facility] [address] [place] [address] Glucose mass conc 127 mg/dL High 70-100 [facility] Comment on above: Result Comment: Test performed by glucose meter. Results may be 10%-15% lower than serum/plasma values. (CLIA ID [id number]) Performed By: #### T SGL #### [address] [place] [address] Glucose mass conc 113 mg/dL High 70-100 [facility] Comment on above: Result Comment: Test performed by glucose meter. Results may be 10%-15% lower than serum/plasma values. (CLIA ID [id number]) Performed By: #### A DDON #### [address] Hemogram w/ Autodiffon 07-21 Abs Baso Cnt 0.1 10*3/uL Normal 0.0-0.2 [facility] Comment on above: Performed By: #### T SGL #### [address] [place] [address] Abs Neutrophile Cnt 11.0 10*3/uL High 1.8-7.0 [facility] Comment on above: Performed By: #### T SGL #### [address] [address] Basophils/100 WBC (Bld) 0.5 % Normal 0.0-2.0 [facility] Comment on above: Performed By: #### T SGL #### [facility] [address] [place] [address] Eosinophils #/vol (Bld) 0.3 10*3/uL Normal 0.0-0.5 [facility] Comment on above: Performed By: #### T SGL #### [facility] [address] [place] [address] Eosinophils/100 WBC (Bld) 1.9 % Normal 1.0-6.0 [facility] Comment on above: Performed By: #### T SGL #### [address] [place] [address] Erythrocyte distribution width Ratio (RBC) 13.7 % Normal 11.5-14.5 [facility] Comment on above: Performed By: #### T SGL #### [address] [place] [address] Granulocytes/100 WBC (Bld) 81.0 % High 40.0-80.0 [facility] Comment on above: Performed By: #### T SGL #### [address] [place] [address] Hematocrit Volume Fraction (Bld) 32.1 % Low 40.0-52.0 [facility] Comment on above: Performed By: #### T SGL #### [address] [place] [address] Hemoglobin mass conc (Bld) 10.7 g/dL Low 13.0-18.0 [facility] Comment on above: Performed By: #### T SGL #### [facility] [address] [place] [address] Lymphocytes #/vol (Bld) 1.3 10*3/uL Normal 1.0-4.3 [facility] Comment on above: Performed By: #### T SGL #### [facility] [address] [place] [address] Lymphocytes/100 WBC (Bld) 9.8 % Low 20.0-40.0 [facility] Comment on above: Performed By: #### T SGL #### [address] [place] [address] MCH Entitic mass (RBC) 29.0 pg Normal 26.0-34.0 [facility] Comment on above: Performed By: #### T SGL #### [facility] [address] [place] [address] MCHC mass conc (RBC) 33.4 % Normal 32.0-36.0 [facility] Comment on above: Performed By: #### T SGL #### [facility] [address] [place] [address] MCV Entitic volume (RBC) 86.9 fL Normal 80.0-98.0 [facility] Comment on above: Performed By: #### T SGL #### [address] [place] [address] Monocytes #/vol (Bld) 0.9 10*3/uL High 0.0-0.8 [facility] Comment on above: Performed By: #### T SGL #### [address] [place] [address] Monocytes/100 WBC (Bld) 6.8 % Normal 2.0-10.0 [facility] Comment on above: Performed By: #### T SGL #### [address] [place] [address] Platelet mean volume Entitic volume (Bld) 7.4 fL Normal 7.4-10.4 [facility] Comment on above: Performed By: #### T SGL #### [address] [place] [address] Platelets #/vol (Bld) 367 10*3/uL Normal 140-440 [facility] Comment on above: Performed By: #### T SGL #### [address] [place] [address] RBC #/vol (Bld) 3.69 10*6/uL Low 4.40-5.90 [facility] Comment on above: Performed By: #### T SGL #### [address] [place] [address] WBC #/vol (Bld) 13.6 10*3/uL High 3.6-10.7 [facility] Comment on above: Performed By: #### T SGL #### [facility] [address] [place] [address] Magnesiumon 07-21-2018 Magnesium mass conc 2.6 mg/dL High 1.6-2.3 [facility] Comment on above: Performed By: #### T SGL #### [facility] [address] [place] [facility] [address] Phosphoruson 07-21-2018 Phosphate mass conc 4.2 mg/dL Normal 2.5-4.5 [facility] Comment on above: Performed By: #### T SGL #### [facility] [address] [place] [address] Triglycerideon 07-21-2018 Triglyceride mass conc 105 mg/dL Normal <150 [facility] Comment on above: Performed By: #### T SGL #### [facility] [address] [place] [address] Add on test from HISon 07-20 Add on test from HIS Accepted Normal [facility] Comment on above: Result Comment: Spec imen available & acceptable for analysis. Performed By: #### A DDON #### [facility] [address] [place] [address] Basic Metabolic Panelon 06-30 Calcium mass conc 7.7 mg/dL Low 8.4-10.4 [facility] Comment on above: Performed By: #### A DDON #### [facility] [address] [place] [address] Glucose mass conc 96 mg/dL Normal 70-100 [facility] Comment on above: Performed By: #### A DDON #### [facility] [address] [place] [address] Urea nitrogen mass conc 22 mg/dL High 7-20 [facility] Comment on above: Performed By: #### A DDON #### [facility] [address] [place] [address] Anion gap molar conc 10 Normal [facility] Comment on above: Performed By: #### A DDON #### [facility] [address] [place], [place] CO2 molar conc 29 mmol/L Normal 22-30 [facility] Comment on above: Performed By: #### A DDON #### [address] [place] Creatinine mass conc 0.87 mg/dL Normal 0.52-1.25 [facility] Comment on above: Performed By: #### A DDON #### [address] [place], [place] GFR/1.73 sq M predicted among blacks MDRD vol rate/area (S/P/Bld) mL/min/{1.73_m2} Normal >60 [facility] Comment on above: Performed By: #### A DDON #### [address] [place], [place] GFR/1.73 sq M predicted among non-blacks MDRD vol rate/area (S/P/Bld) mL/min/{1.73_m2} Normal >60 [facility] Comment on above: Result Comment: Sour ce- MDRD equation with creatinine calibration to IDMS(NKDEP) eGFR not recommended for drug dose adjustment Performed By: #### A DDON #### [address] [place], [place] Potassium molar conc 3.6 mmol/L Normal 3.5-5.1 [facility] Comment on above: Performed By: #### A DDON #### [address] [place] Chloride molar conc 105 mmol/L Normal 98-107 [facility] Comment on above: Performed By: #### A DDON #### [address] [place] Sodium molar conc 144 mmol/L Normal 135-145 [facility] Comment on above: Performed By: #### A DDON #### [address] [place], [place] CR Abdomen APon 07-20-2018 CR Abdomen AP Patient Name: KATHYA HOOPER Diagnostic Radiology Exam Date/Time 07/20/2018 08:39:45 EDT Exam CR Abdomen AP Ordering Physician JOYA ROJAS Accession Number [id number] CPT4 Codes 66093 () Reason For Exam ileus Report Clinical [...] Transcribed Date and Time: 07/20/2018 9:29 Normal [facility] CR Chest Portableon 07-21-19 19 CR Chest Portable Patient Name: KATHYA HOOPER Diagnostic Radiology Exam Date/Time 07/20/2018 08:39:26 EDT Exam CR Chest Portable Ordering Physician MARIA EUGENIA PEREZ Accession Number [id number] CPT4 Codes 11210 () Reason For Exam ETT placement Report [...] Transcribed Date and Time: 07/20/2018 9:28 Normal [facility] CT Abdomen/Pelvis w/ Contras ton 07-20-2018 CT Abdomen/Pelvis w/ Contrast Patient Name: KATHYA HOOPER [facility]: [id number] CT Exam Date/Time 07/20/2018 11:30:[address] Abdomen/Pelvis w/ IV Contrast (IV Onl Ordering Physician JOYA ROJAS Accession Number [id number] CPT4 Codes 40687 (CT Abdomen/Pelvis w/ IV Contrast (IV Onl) [...] Transcribed Date and Time: 07/20/2018 1:10 Normal [facility] CT Chest w/ Contraston 07-20 CT Chest w/ Contrast Patient Name: KATHYA RAY CT Exam Date/Time 07/20/2018 11:30:[address] Chest w/ Contrast Ordering Physician [id number] AGUILERA Accession Number [id number] CPT4 Codes 47144 (), Q9967 (CT ISOVUE [id number]) Reason For Exam SOB, possible pneumonia Report [...] Dictated: 07/20/2018 1:28 pm Dictating Physician: MD MENEDS HARLAN Signed Date and Time: 07/20/2018 1:34 pm Signed by: MD MENDES HARLAN Transcribed Date and Time: 07/20/2018 1:28 Normal [facility] Glucose,Bedsideon 07-20-2018 Glucose mass conc 128 mg/dL High 70-100 [facility] Comment on above: Result Comment: Test performed by glucose meter. Results may be 10%-15% lower than serum/plasma values. (CLIA ID [id number]) Performed By: #### A DDON #### [facility] [address] [place] [phone] Hemogram w/ Autodiffon 07-20 Abs Baso Cnt 0.1 10*3/uL Normal 0.0-0.2 [facility] Comment on above: Performed By: #### H EMDF, PT, BMP3M, PHOS3, MG3, CK3 #### [address] [place], [place] #### VD25H #### [facility] [address] [place] [address] Abs Neutrophile Cnt 13.0 10*3/uL High 1.8-7.0 [facility] Comment on above: Performed By: #### H EMDF, PT, BMP3M, PHOS3, MG3, CK3 #### [address] [place], [place] #### VD25H #### [facility] [address] [place] [address] Basophils/100 WBC (Bld) 0.3 % Normal 0.0-2.0 [facility] Comment on above: Performed By: #### H EMDF, PT, BMP3M, PHOS3, MG3, CK3 #### [address] #### VD25H #### [facility] [address] [place] [address] Eosinophils #/vol (Bld) 0.3 10*3/uL Normal 0.0-0.5 [facility] Comment on above: Performed By: #### H EMDF, PT, BMP3M, PHOS3, MG3, CK3 #### [address] #### VD25H #### [facility] [address] [place] [address] Eosinophils/100 WBC (Bld) 1.9 % Normal 1.0-6.0 [facility] Comment on above: Performed By: #### H EMDF, PT, BMP3M, PHOS3, MG3, CK3 #### [address] #### VD25H #### [facility] [address] [place] [address] Erythrocyte distribution width Ratio (RBC) 13.3 % Normal 11.5-14.5 [facility] Comment on above: Performed By: #### H EMDF, PT, BMP3M, PHOS3, MG3, CK3 #### [facility] [address] [place], [place] #### VD25H #### [facility] [address] [place] [address] Granulocytes/100 WBC (Bld) 81.8 % High 40.0-80.0 [facility] Comment on above: Performed By: #### H EMDF, PT, BMP3M, PHOS3, MG3, CK3 #### [address] [place] #### VD25H #### [facility] [address] [place] [address] Hematocrit Volume Fraction (Bld) 33.6 % Low 40.0-52.0 [facility] Comment on above: Performed By: #### H EMDF, PT, BMP3M, PHOS3, MG3, CK3 #### [address] #### VD25H #### [facility] [address] [place] [address] Hemoglobin mass conc (Bld) 11.4 g/dL Low 13.0-18.0 [facility] Comment on above: Performed By: #### H EMDF, PT, BMP3M, PHOS3, MG3, CK3 #### [address] [place] #### VD25H #### [facility] [address] [place] [address] Lymphocytes #/vol (Bld) 1.5 10*3/uL Normal 1.0-4.3 [facility] Comment on above: Performed By: #### H EMDF, PT, BMP3M, PHOS3, MG3, CK3 #### [address] #### VD25H #### [facility] [address] [place] [address] Lymphocytes/100 WBC (Bld) 9.2 % Low 20.0-40.0 [facility] Comment on above: Performed By: #### H EMDF, PT, BMP3M, PHOS3, MG3, CK3 #### [address] [place], [place] #### VD25H #### [facility] [address] [place] [address] MCH Entitic mass (RBC) 29.3 pg Normal 26.0-34.0 [facility] Comment on above: Performed By: #### H EMDF, PT, BMP3M, PHOS3, MG3, CK3 #### [address] #### VD25H #### [facility] [address] [place] [address] MCHC mass conc (RBC) 33.9 % Normal 32.0-36.0 [facility] Comment on above: Performed By: #### H EMDF, PT, BMP3M, PHOS3, MG3, CK3 #### [address] #### VD25H #### [facility] [address] [place] [address] MCV Entitic volume (RBC) 86.5 fL Normal 80.0-98.0 [facility] Comment on above: Performed By: #### H EMDF, PT, BMP3M, PHOS3, MG3, CK3 #### [address] #### VD25H #### [facility] [address] [place] [address] Monocytes #/vol (Bld) 1.1 10*3/uL High 0.0-0.8 [facility] Comment on above: Performed By: #### H EMDF, PT, BMP3M, PHOS3, MG3, CK3 #### [address] #### VD25H #### [facility] [address] [place] [address] Monocytes/100 WBC (Bld) 6.8 % Normal 2.0-10.0 [facility] Comment on above: Performed By: #### H EMDF, PT, BMP3M, PHOS3, MG3, CK3 #### [facility] [address] [place], [place] #### VD25H #### [facility] [address] [place] [address] Platelet mean volume Entitic volume (Bld) 7.5 fL Normal 7.4-10.4 [facility] Comment on above: Performed By: #### H EMDF, PT, BMP3M, PHOS3, MG3, CK3 #### [address] #### VD25H #### [facility] [address] [place] [address] Platelets #/vol (Bld) 375 10*3/uL Normal 140-440 [facility] Comment on above: Performed By: #### H EMDF, PT, BMP3M, PHOS3, MG3, CK3 #### [address] #### VD25H #### [facility] [address] [place] [address] RBC #/vol (Bld) 3.88 10*6/uL Low 4.40-5.90 [facility] Comment on above: Performed By: #### H EMDF, PT, BMP3M, PHOS3, MG3, CK3 #### [address] [place], [place] #### VD25H #### [facility] [address] [place] [address] WBC #/vol (Bld) 15.9 10*3/uL High 3.6-10.7 [facility] Comment on above: Performed By: #### H EMDF, PT, BMP3M, PHOS3, MG3, CK3 #### [address] #### VD25H #### [facility] [address] [place] [address] Phosphoruson 07-20-2018 Phosphate mass conc 5.5 mg/dL High 2.5-4.5 [facility] Comment on above: Performed By: #### A DDON #### [address] [place], [place] Add on test from HISon 07-19 Add on test from HIS Accepted Normal [facility] Comment on above: Result Comment: Spec imen available & acceptable for analysis. Performed By: #### H EMDF, PT, BMP3M, PHOS3, MG3, CK3 #### [address] [place], [place] #### VD25H #### [facility] [address] [place] [address] Arterial Blood Gaseson 07-19 CO2 molar conc 31.5 mmol/L High 23.0-27.0 [facility] Comment on above: Performed By: #### H EMDF, PT, BMP3M, PHOS3, MG3, CK3 #### [address] [place], [place] #### VD25H #### [facility] [address] [place] [address] HCO3 molar conc (Bld) 30.2 mmol/L High 21.0-25.0 [facility] Comment on above: Performed By: #### H EMDF, PT, BMP3M, PHOS3, MG3, CK3 #### [address] [place], [place] #### VD25H #### [facility] [address] [place] [address] Hemoglobin mass conc (Bld) 11.7 g/dL Normal ScreenOnly [facility] Comment on above: Performed By: #### H EMDF, PT, BMP3M, PHOS3, MG3, CK3 #### [address] [place] #### VD25H #### [facility] [facility] [address] [place] [address] Oxygen ppres (Bld) 85.1 mm[Hg] Normal 80.0-100.0 [facility] Comment on above: Performed By: #### H EMDF, PT, BMP3M, PHOS3, MG3, CK3 #### [address] [address] [place], [place] #### VD25H #### [facility] [address] [place] [address] Oxygen saturation in Blood 95.9 % Normal 95.0-100.0 [facility] Comment on above: Performed By: #### H EMDF, PT, BMP3M, PHOS3, MG3, CK3 #### [address] [place], [place] #### VD25H #### [place] [address] [place] [address] pCO2 43.6 mm[Hg] Normal 35.0-45.0 [facility] Comment on above: Performed By: #### H EMDF, PT, BMP3M, PHOS3, MG3, CK3 #### [address] [facility], [place] #### VD25H #### [facility] [address] [place] [address] pH (Bld) 7.458 High 7.350-7.450 [facility] Comment on above: Performed By: #### H EMDF, PT, BMP3M, PHOS3, MG3, CK3 #### [address] [facility], [place] #### VD25H #### [facility] [address] [place] [address] Std Base Excess 5.7 mmol/L High -3.0-3.0 [facility] Comment on above: Performed By: #### H EMDF, PT, BMP3M, PHOS3, MG3, CK3 #### [address] [address] [facility], [place] #### VD25H #### [facility] [address] [place] [address] FIO2 40% Normal [facility] Comment on above: Performed By: #### H EMDF, PT, BMP3M, PHOS3, MG3, CK3 #### [address] [address] [facility], [place] #### VD25H #### [facility] [address] [place] [address] Basic Metabolic Panelon 06-30 Calcium mass conc 7.5 mg/dL Low 8.4-10.4 [facility] Comment on above: Performed By: #### H EMDF, PT, BMP3M, PHOS3, MG3, CK3 #### [address] [address] [facility], [place] #### VD25H #### [facility] [address] [place] [address] Glucose mass conc 274 mg/dL High 70-100 [facility] Comment on above: Performed By: #### H EMDF, PT, BMP3M, PHOS3, MG3, CK3 #### [address] [address] [facility], [place] #### VD25H #### [facility] [address] [place] [address] Anion gap molar conc 6 Normal [facility] Comment on above: Performed By: #### H EMDF, PT, BMP3M, PHOS3, MG3, CK3 #### [address] [address] [facility], [place] #### VD25H #### [facility] [address] [place] [address] CO2 molar conc 31 mmol/L High 22-30 [facility] Comment on above: Performed By: #### H EMDF, PT, BMP3M, PHOS3, MG3, CK3 #### [address] [address] [facility], [place] #### VD25H #### [facility] [address] [place] [address] Creatinine mass conc 0.64 mg/dL Normal 0.52-1.25 [facility] Comment on above: Performed By: #### H EMDF, PT, BMP3M, PHOS3, MG3, CK3 #### [address] #### VD25H #### [facility] [address] [place] [address] GFR/1.73 sq M predicted among blacks MDRD vol rate/area (S/P/Bld) mL/min/{1.73_m2} Normal >60 [facility] Comment on above: Performed By: #### H EMDF, PT, BMP3M, PHOS3, MG3, CK3 #### [address] #### VD25H #### [facility] [address] [place] [address] GFR/1.73 sq M predicted among non-blacks MDRD vol rate/area (S/P/Bld) mL/min/{1.73_m2} Normal >60 [facility] Comment on above: Result Comment: Sour ce- MDRD equation with creatinine calibration to IDMS(NKDEP) eGFR not recommended for drug dose adjustment Performed By: #### H EMDF, PT, BMP3M, PHOS3, MG3, CK3 #### [address] #### VD25H #### [facility] [address] [facility] [place] [address] Urea nitrogen mass conc 15 mg/dL Normal 7-20 [facility] Comment on above: Performed By: #### H EMDF, PT, BMP3M, PHOS3, MG3, CK3 #### [address] #### VD25H #### [facility] [address] [place] [address] Chloride molar conc 105 mmol/L Normal 98-107 [facility] Comment on above: Performed By: #### H EMDF, PT, BMP3M, PHOS3, MG3, CK3 #### [facility] [address] [place] [address] #### VD25H #### [facility] [address] [place] [address] Potassium molar conc 4.3 mmol/L Normal 3.5-5.1 [facility] Comment on above: Performed By: #### H EMDF, PT, BMP3M, PHOS3, MG3, CK3 #### [facility] [address] [place] [address] #### VD25H #### [facility] [address] [place] [address] Sodium molar conc 141 mmol/L Normal 135-145 [facility] Comment on above: Performed By: #### H EMDF, PT, BMP3M, PHOS3, MG3, CK3 #### [facility] [address] [place] [address] #### VD25H #### [facility] [address] [place] [address] CR Abdomen APon 07-19-2018 CR Abdomen AP Patient Name: KATHYA HOOPER Diagnostic Radiology Exam Date/Time 07/19/2018 06:44:12 EDT Exam CR Abdomen AP Ordering Physician [id number] JOYA PERRY Accession Number [id number] CPT4 Codes 01122 () Reason For Exam ileus Report Abdomen: [...] Transcribed Date and Time: 07/19/2018 7:46 Normal [facility] CR Chest Portableon 07-20-19 19 CR Chest Portable Patient Name: KATHYA HOOPER Diagnostic Radiology Exam Date/Time 07/19/2018 06:43:52 EDT Exam CR Chest Portable Ordering Physician MARIA EUGENIA PEREZ Accession Number [id number] CPT4 Codes 88981 () Reason For Exam ETT placement Report [...] Transcribed Date and Time: 07/19/2018 7:44 Normal [facility] Glucose,Bedsideon 07-19-2018 Glucose mass conc 95 mg/dL Normal 70-100 [facility] Comment on above: Result Comment: Test performed by glucose meter. Results may be 10%-15% lower than serum/plasma values. (CLIA ID [id number]) Performed By: #### H EMDF, PT, BMP3M, PHOS3, MG3, CK3 #### [facility] [address] [place] [address] #### VD25H #### [facility] [address] [place] [address] Hemogram w/ Autodiffon 07-19 Abs Baso Cnt 0.1 10*3/uL Normal 0.0-0.2 [facility] Comment on above: Performed By: #### H EMDF, PT, BMP3M, PHOS3, MG3, CK3 #### [facility] [address] [place], [place] #### VD25H #### [facility] [address] [place] [address] Abs Neutrophile Cnt 9.8 10*3/uL High 1.8-7.0 [facility] Comment on above: Performed By: #### H EMDF, PT, BMP3M, PHOS3, MG3, CK3 #### [address] [place], [place] #### VD25H #### [facility] [address] [place] [address] Basophils/100 WBC (Bld) 0.5 % Normal 0.0-2.0 [facility] Comment on above: Performed By: #### H EMDF, PT, BMP3M, PHOS3, MG3, CK3 #### [address] #### VD25H #### [facility] [address] [place] [address] Eosinophils #/vol (Bld) 0.3 10*3/uL Normal 0.0-0.5 [facility] Comment on above: Performed By: #### H EMDF, PT, BMP3M, PHOS3, MG3, CK3 #### [address] [place] #### VD25H #### [facility] [address] [place] [address] Eosinophils/100 WBC (Bld) 2.5 % Normal 1.0-6.0 [facility] Comment on above: Performed By: #### H EMDF, PT, BMP3M, PHOS3, MG3, CK3 #### [address] #### VD25H #### [facility] [address] [place] [address] Erythrocyte distribution width Ratio (RBC) 13.3 % Normal 11.5-14.5 [facility] Comment on above: Performed By: #### H EMDF, PT, BMP3M, PHOS3, MG3, CK3 #### [facility] [address] [place] #### VD25H #### [facility] [address] [place] [address] Granulocytes/100 WBC (Bld) 80.4 % High 40.0-80.0 [facility] Comment on above: Performed By: #### H EMDF, PT, BMP3M, PHOS3, MG3, CK3 #### [facility] [address] [place] #### VD25H #### [facility] [address] [place] [address] Hematocrit Volume Fraction (Bld) 30.6 % Low 40.0-52.0 [facility] Comment on above: Performed By: #### H EMDF, PT, BMP3M, PHOS3, MG3, CK3 #### [address] [place] #### VD25H #### [facility] [address] [place] [address] Hemoglobin mass conc (Bld) 10.5 g/dL Low 13.0-18.0 [facility] Comment on above: Performed By: #### H EMDF, PT, BMP3M, PHOS3, MG3, CK3 #### [address] [place] #### VD25H #### [facility] [address] [place] [address] Lymphocytes #/vol (Bld) 1.1 10*3/uL Normal 1.0-4.3 [facility] Comment on above: Performed By: #### H EMDF, PT, BMP3M, PHOS3, MG3, CK3 #### [address] [place], [place] #### VD25H #### [facility] [address] [place] [address] Lymphocytes/100 WBC (Bld) 9.1 % Low 20.0-40.0 [facility] Comment on above: Performed By: #### H EMDF, PT, BMP3M, PHOS3, MG3, CK3 #### [address] #### VD25H #### [facility] [address] [place] [address] MCH Entitic mass (RBC) 29.7 pg Normal 26.0-34.0 [facility] Comment on above: Performed By: #### H EMDF, PT, BMP3M, PHOS3, MG3, CK3 #### [address] [place], [place] #### VD25H #### [facility] [address] [place] [address] MCHC mass conc (RBC) 34.3 % Normal 32.0-36.0 [facility] Comment on above: Performed By: #### H EMDF, PT, BMP3M, PHOS3, MG3, CK3 #### [address] #### VD25H #### [facility] [address] [place] [address] MCV Entitic volume (RBC) 86.7 fL Normal 80.0-98.0 [facility] Comment on above: Performed By: #### H EMDF, PT, BMP3M, PHOS3, MG3, CK3 #### [address] #### VD25H #### [facility] [address] [place] [address] Monocytes #/vol (Bld) 0.9 10*3/uL High 0.0-0.8 [facility] Comment on above: Performed By: #### H EMDF, PT, BMP3M, PHOS3, MG3, CK3 #### [address] #### VD25H #### [place] [address] [place] [address] Monocytes/100 WBC (Bld) 7.5 % Normal 2.0-10.0 [facility] Comment on above: Performed By: #### H EMDF, PT, BMP3M, PHOS3, MG3, CK3 #### [facility] [address] [place] #### VD25H #### [facility] [address] [place] [address] Platelet mean volume Entitic volume (Bld) 7.3 fL Low 7.4-10.4 [facility] Comment on above: Performed By: #### H EMDF, PT, BMP3M, PHOS3, MG3, CK3 #### [address] [place], [place] #### VD25H #### [facility] [address] [place] [address] Platelets #/vol (Bld) 329 10*3/uL Normal 140-440 [facility] Comment on above: Performed By: #### H EMDF, PT, BMP3M, PHOS3, MG3, CK3 #### [address] [place], [place] #### VD25H #### [facility] [address] [place] [address] RBC #/vol (Bld) 3.53 10*6/uL Low 4.40-5.90 [facility] Comment on above: Performed By: #### H EMDF, PT, BMP3M, PHOS3, MG3, CK3 #### [address] [place] #### VD25H #### [facility] [address] [place] [address] WBC #/vol (Bld) 12.2 10*3/uL High 3.6-10.7 [facility] Comment on above: Performed By: #### H EMDF, PT, BMP3M, PHOS3, MG3, CK3 #### [address] #### VD25H #### [facility] [address] [place] [address] Magnesiumon 03-21-2019 Magnesium mass conc 2.3 mg/dL Normal 1.6-2.3 [facility] Comment on above: Performed By: #### H EMDF, PT, BMP3M, PHOS3, MG3, CK3 #### [facility] [address] [place] #### VD25H #### [facility] [address] [place] [address] Procalcitoninon 07-19-2018 Protein mass conc 0.15 ng/mL Abnormal <0.10 [facility] Comment on above: Performed By: #### H EMDF, PT, BMP3M, PHOS3, MG3, CK3 #### [facility] [address] [place] #### VD25H #### [facility] [address] [place] [address] Interpretation See Below Normal [facility] Comment on above: Result Comment: PCT <0.50 = Low risk of severe sepsis and/or septic shock. PCT >2.00 = High risk of severe sepsis and/or septic shock. Performed By: #### H EMDF, PT, BMP3M, PHOS3, MG3, CK3 #### [facility] [address] [place], [place] #### VD25H #### [facility] [address] [place] [address] VL Venous Duplex US Lower Ex t Bilateralon 07-19-2018 VL Venous Duplex US Lower Ext Bilateral Patient Name: KATHYA HOOPER Ultrasound Exam Date/Time 07/19/2018 11:10:14 EDT Exam VL Venous Duplex US Lower Ext Bilateral Ordering Physician ETIENNE MARTÍNEZ JULIE Accession Number [id number] CPT4 Codes 28400 () Reason For Exam edema Report [facility] --- Lower Extremity Venous Duplex Report Patient Name: Kathya Hooper : 1955 Study Date: 07/19/2018 W (63yrs) Age: 63 Account: [id number] Gender: M Loc: [id number] BP: Ordering: Yesenia Martínez Technologist: Ordering Physician: Yesenia Martínez Patient Registration Supervisor: León Chaidez Lissette, [facility] Interpreting Physician: Ricardo Hall MD --- Location: [facility] --- INDICATIONS: Edema. bilateral calf [...] performed. The images were obtained using a EverTrue E9 vascular ultrasound machine. --- VENOUS FLOW [...] --+ Electronically signed by: Ricardo Hall MD [id number] Final Dictated: 07/20/2018 10:49 am Dictating Physician: RICARDO HALL Signed Date and Time: 07/19/2018 11:03 am Signed by: RICARDO HALL Normal [facility] Basic Metabolic Panelon 06-30 Calcium mass conc 7.9 mg/dL Low 8.4-10.4 [facility] Comment on above: Performed By: #### H EMDF, PT, BMP3M, PHOS3, MG3, CK3 #### [facility] [address] [place] [address] #### VD25H #### [facility] [address] [place] [address] Glucose mass conc 113 mg/dL High 70-100 [facility] Comment on above: Performed By: #### H EMDF, PT, BMP3M, PHOS3, MG3, CK3 #### [facility] [address] [place] [address] #### VD25H #### [facility] [address] [place] [address] Anion gap molar conc 7 Normal [facility] Comment on above: Performed By: #### H EMDF, PT, BMP3M, PHOS3, MG3, CK3 #### [address] #### VD25H #### [facility] [address] [place] [address] CO2 molar conc 31 mmol/L High 22-30 [facility] Comment on above: Performed By: #### H EMDF, PT, BMP3M, PHOS3, MG3, CK3 #### [address] #### VD25H #### [place] [address] [place] [address] Creatinine mass conc 0.59 mg/dL Normal 0.52-1.25 [facility] Comment on above: Performed By: #### H EMDF, PT, BMP3M, PHOS3, MG3, CK3 #### [address] #### VD25H #### [place] [address] [place] [address] GFR/1.73 sq M predicted among blacks MDRD vol rate/area (S/P/Bld) mL/min/{1.73_m2} Normal >60 [facility] Comment on above: Performed By: #### H EMDF, PT, BMP3M, PHOS3, MG3, CK3 #### [address] #### VD25H #### [address] [place] [address] GFR/1.73 sq M predicted among non-blacks MDRD vol rate/area (S/P/Bld) mL/min/{1.73_m2} Normal >60 [facility] Comment on above: Result Comment: Sour ce- MDRD equation with creatinine calibration to IDMS(NKDEP) eGFR not recommended for drug dose adjustment Performed By: #### H EMDF, PT, BMP3M, PHOS3, MG3, CK3 #### [address] #### VD25H #### [facility] [address] [place] [address] Urea nitrogen mass conc 19 mg/dL Normal 7-20 [facility] Comment on above: Performed By: #### H EMDF, PT, BMP3M, PHOS3, MG3, CK3 #### [facility] [address] [place] #### VD25H #### [facility] [address] [place] [address] Chloride molar conc 104 mmol/L Normal 98-107 [facility] Comment on above: Performed By: #### H EMDF, PT, BMP3M, PHOS3, MG3, CK3 #### [address] [place] #### VD25H #### [facility] [address] [place] [address] Potassium molar conc 3.4 mmol/L Low 3.5-5.1 [facility] Comment on above: Performed By: #### H EMDF, PT, BMP3M, PHOS3, MG3, CK3 #### [facility] [address] [place] #### VD25H #### [facility] [address] [place] [address] Sodium molar conc 142 mmol/L Normal 135-145 [facility] Comment on above: Performed By: #### H EMDF, PT, BMP3M, PHOS3, MG3, CK3 #### [address] [place] #### VD25H #### [facility] [address] [place] [address] CR Abdomen APon 07-18-2018 CR Abdomen AP Patient Name: KATHYA HOOPER Diagnostic Radiology Exam Date/Time 07/18/2018 06:52:18 EDT Exam CR Abdomen AP Ordering Physician JOYA ROJAS Accession Number [id number] CPT4 Codes 06380 () Reason For Exam ileus Report CLINICAL [...] Transcribed Date and Time: 07/18/2018 2:33 Normal [facility] CR Chest Portableon 07-19-19 CR Chest Portable Patient Name: KATHYA HOOPER Diagnostic Radiology Exam Date/Time 07/18/2018 06:52:50 EDT Exam CR Chest Portable Ordering Physician MARIA EUGENIA PEREZ Accession Number [id number] CPT4 Codes 54153 () Reason For Exam ETT placement Report [...] Transcribed Date and Time: 07/18/2018 2:32 Normal [facility] Hemogram w/ Autodiffon 07-18 Abs Baso Cnt 0.0 10*3/uL Normal 0.0-0.2 [facility] Comment on above: Performed By: #### H EMDF, PT, BMP3M, PHOS3, MG3, CK3 #### [facility] [address] [place], [place] #### VD25H #### [facility] [address] [place] [place] [address] Abs Neutrophile Cnt 8.6 10*3/uL High 1.8-7.0 [facility] Comment on above: Performed By: #### H EMDF, PT, BMP3M, PHOS3, MG3, CK3 #### [address] #### VD25H #### [facility] [address] [place] [address] Basophils/100 WBC (Bld) 0.4 % Normal 0.0-2.0 [facility] Comment on above: Performed By: #### H EMDF, PT, BMP3M, PHOS3, MG3, CK3 #### [address] #### VD25H #### [facility] [address] [place] [address] Eosinophils #/vol (Bld) 0.2 10*3/uL Normal 0.0-0.5 [facility] Comment on above: Performed By: #### H EMDF, PT, BMP3M, PHOS3, MG3, CK3 #### [address] #### VD25H #### [facility] [address] [place] [address] Eosinophils/100 WBC (Bld) 2.1 % Normal 1.0-6.0 [facility] Comment on above: Performed By: #### H EMDF, PT, BMP3M, PHOS3, MG3, CK3 #### [address] #### VD25H #### [facility] [address] [place] [address] Erythrocyte distribution width Ratio (RBC) 13.4 % Normal 11.5-14.5 [facility] Comment on above: Performed By: #### H EMDF, PT, BMP3M, PHOS3, MG3, CK3 #### [address] #### VD25H #### [facility] [address] [place] [address] Granulocytes/100 WBC (Bld) 80.0 % Normal 40.0-80.0 [facility] Comment on above: Performed By: #### H EMDF, PT, BMP3M, PHOS3, MG3, CK3 #### [address] #### VD25H #### [facility] [address] [place] [address] Hematocrit Volume Fraction (Bld) 37.3 % Low 40.0-52.0 [facility] Comment on above: Performed By: #### H EMDF, PT, BMP3M, PHOS3, MG3, CK3 #### [address] #### VD25H #### [facility] [address] [place] [address] Hemoglobin mass conc (Bld) 12.6 g/dL Low 13.0-18.0 [facility] Comment on above: Performed By: #### H EMDF, PT, BMP3M, PHOS3, MG3, CK3 #### [address] #### VD25H #### [facility] [address] [place] [address] Lymphocytes #/vol (Bld) 1.1 10*3/uL Normal 1.0-4.3 [facility] Comment on above: Performed By: #### H EMDF, PT, BMP3M, PHOS3, MG3, CK3 #### [facility] [address] [place] #### VD25H #### [facility] [address] [place] [address] Lymphocytes/100 WBC (Bld) 10.3 % Low 20.0-40.0 [facility] Comment on above: Performed By: #### H EMDF, PT, BMP3M, PHOS3, MG3, CK3 #### [address] #### VD25H #### [facility] [address] [place] [address] MCH Entitic mass (RBC) 29.4 pg Normal 26.0-34.0 [facility] Comment on above: Performed By: #### H EMDF, PT, BMP3M, PHOS3, MG3, CK3 #### [address] #### VD25H #### [facility] [address] [place] [address] MCHC mass conc (RBC) 33.9 % Normal 32.0-36.0 [facility] Comment on above: Performed By: #### H EMDF, PT, BMP3M, PHOS3, MG3, CK3 #### [address] [address] [place], [place] #### VD25H #### [facility] [address] [place] [address] MCV Entitic volume (RBC) 86.8 fL Normal 80.0-98.0 [facility] Comment on above: Performed By: #### H EMDF, PT, BMP3M, PHOS3, MG3, CK3 #### [address] #### VD25H #### [facility] [address] [place] [address] Monocytes #/vol (Bld) 0.8 10*3/uL Normal 0.0-0.8 [facility] Comment on above: Performed By: #### H EMDF, PT, BMP3M, PHOS3, MG3, CK3 #### [facility] [address] [place], [place] #### VD25H #### [facility] [address] [place] [address] Monocytes/100 WBC (Bld) 7.2 % Normal 2.0-10.0 [facility] Comment on above: Performed By: #### H EMDF, PT, BMP3M, PHOS3, MG3, CK3 #### [address] #### VD25H #### [facility] [address] [place] [address] Platelet mean volume Entitic volume (Bld) 7.8 fL Normal 7.4-10.4 [facility] Comment on above: Performed By: #### H EMDF, PT, BMP3M, PHOS3, MG3, CK3 #### [address] #### VD25H #### [facility] [address] [place] [address] Platelets #/vol (Bld) 301 10*3/uL Normal 140-440 [facility] Comment on above: Performed By: #### H EMDF, PT, BMP3M, PHOS3, MG3, CK3 #### [address] #### VD25H #### [facility] [address] [place] [address] RBC #/vol (Bld) 4.29 10*6/uL Low 4.40-5.90 [facility] Comment on above: Performed By: #### H EMDF, PT, BMP3M, PHOS3, MG3, CK3 #### [address] #### VD25H #### [facility] [address] [place] [address] WBC #/vol (Bld) 10.8 10*3/uL High 3.6-10.7 [facility] Comment on above: Performed By: #### H EMDF, PT, BMP3M, PHOS3, MG3, CK3 #### [address] #### VD25H #### [facility] [address] [place] [address] Arterial Blood Gaseson 07-17 CO2 molar conc 29.7 mmol/L High 23.0-27.0 [facility] Comment on above: Performed By: #### H EMDF, PT, BMP3M, PHOS3, MG3, CK3 #### [address] #### VD25H #### [place] [address] [place] [address] HCO3 molar conc (Bld) 28.4 mmol/L High 21.0-25.0 [facility] Comment on above: Performed By: #### H EMDF, PT, BMP3M, PHOS3, MG3, CK3 #### [address] #### VD25H #### [place] [address] [place] [address] Hemoglobin mass conc (Bld) 11.1 g/dL Normal [facility]Only [facility] Comment on above: Performed By: #### H EMDF, PT, BMP3M, PHOS3, MG3, CK3 #### [address] #### VD25H #### [place] [address] [place] [address] Oxygen ppres (Bld) 109.2 mm[Hg] High 80.0-100.0 [facility] Comment on above: Performed By: #### H EMDF, PT, BMP3M, PHOS3, MG3, CK3 #### [address] [place], [place] #### VD25H #### [facility] [address] [place] [address] Oxygen saturation in Blood 97.8 % Normal 95.0-100.0 [facility] Comment on above: Performed By: #### H EMDF, PT, BMP3M, PHOS3, MG3, CK3 #### [address] [place] #### VD25H #### [facility] [address] [place] [address] pCO2 39.8 mm[Hg] Normal 35.0-45.0 [facility] Comment on above: Performed By: #### H EMDF, PT, BMP3M, PHOS3, MG3, CK3 #### [address] #### VD25H #### [place] [address] [place] [address] pH (Bld) 7.472 High 7.350-7.450 [facility] Comment on above: Performed By: #### H EMDF, PT, BMP3M, PHOS3, MG3, CK3 #### [address] #### VD25H #### [place] [address] [place] [address] Std Base Excess 4.5 mmol/L High -3.0-3.0 [facility] Comment on above: Performed By: #### H EMDF, PT, BMP3M, PHOS3, MG3, CK3 #### [address] [place], [place] #### VD25H #### [place] [address] [place] [address] FIO2 60% Normal [facility] Comment on above: Performed By: #### H EMDF, PT, BMP3M, PHOS3, MG3, CK3 #### [place] [address] [place], [place] #### VD25H #### [facility] [address] [place] [address] Basic Metabolic Panelon 06-29 Anion gap molar conc 6 Normal [facility] Comment on above: Performed By: #### H EMDF, PT, BMP3M, PHOS3, MG3, CK3 #### [place] [address] [address] [facility], [place] #### VD25H #### [facility] [address] [place] [address] Calcium mass conc 8.0 mg/dL Low 8.4-10.4 [facility] Comment on above: Performed By: #### H EMDF, PT, BMP3M, PHOS3, MG3, CK3 #### [place] [address] [address] [facility], [place] #### VD25H #### [facility] [address] [place] [address] CO2 molar conc 31 mmol/L High 22-30 [facility] Comment on above: Performed By: #### H EMDF, PT, BMP3M, PHOS3, MG3, CK3 #### [place] [address] [address] [facility], [place] #### VD25H #### [facility] [address] [place] [address] Glucose mass conc 107 mg/dL High 70-100 [facility] Comment on above: Performed By: #### H EMDF, PT, BMP3M, PHOS3, MG3, CK3 #### [place] [address] [address] [facility], [place] #### VD25H #### [facility] [address] [place] [address] Urea nitrogen mass conc 22 mg/dL High 7-20 [facility] Comment on above: Performed By: #### H EMDF, PT, BMP3M, PHOS3, MG3, CK3 #### [place] [address] [address] [facility], [place] #### VD25H #### [facility] [address] [place] [address] Creatinine mass conc 0.66 mg/dL Normal 0.52-1.25 [facility] Comment on above: Performed By: #### H EMDF, PT, BMP3M, PHOS3, MG3, CK3 #### [address] #### VD25H #### [facility] [address] [place] [address] GFR/1.73 sq M predicted among blacks MDRD vol rate/area (S/P/Bld) mL/min/{1.73_m2} Normal >60 [facility] Comment on above: Performed By: #### H EMDF, PT, BMP3M, PHOS3, MG3, CK3 #### [address] #### VD25H #### [facility] [address] [place] [address] GFR/1.73 sq M predicted among non-blacks MDRD vol rate/area (S/P/Bld) mL/min/{1.73_m2} Normal >60 [facility] Comment on above: Result Comment: Sour ce- MDRD equation with creatinine calibration to IDMS(NKDEP) eGFR not recommended for drug dose adjustment Performed By: #### H EMDF, PT, BMP3M, PHOS3, MG3, CK3 #### [address] #### VD25H #### [facility] [address] [place] [address] Chloride molar conc 105 mmol/L Normal 98-107 [facility] Comment on above: Performed By: #### H EMDF, PT, BMP3M, PHOS3, MG3, CK3 #### [address] #### VD25H #### [facility] [address] [place] [address] Potassium molar conc 3.9 mmol/L Normal 3.5-5.1 [facility] Comment on above: Performed By: #### H EMDF, PT, BMP3M, PHOS3, MG3, CK3 #### [facility] [address] [facility] [place] [address] #### VD25H #### [facility] [address] [place] [address] Sodium molar conc 142 mmol/L Normal 135-145 [facility] Comment on above: Performed By: #### H EMDF, PT, BMP3M, PHOS3, MG3, CK3 #### [facility] [address] [facility] [place] [address] #### VD25H #### [facility] [address] [place] [address] CR Abdomen APon 07-17-2018 CR Abdomen AP Patient Name: KATHYA HOOPER Diagnostic Radiology Exam Date/Time 07/17/2018 12:46:31 EDT Exam CR Abdomen AP Ordering Physician JOYA ROJAS Accession Number [id number] CPT4 Codes 02917 () Reason For Exam ileus Report Abdomen: [...] Transcribed Date and Time: 07/17/2018 12:46 Normal [facility] CR Abdomen AP Patient Name: KATHYA HOOPER Diagnostic Radiology Exam Date/Time 07/17/2018 06:25:43 EDT Exam CR Abdomen AP Ordering Physician JOYA ROJAS Accession Number [id number] CPT4 Codes 62135 () Reason For Exam ileus Report Abdomen: [...] Transcribed Date and Time: 07/17/2018 7:16 Normal [facility] CR Chest Portableon 07-18-19 CR Chest Portable Patient Name: KATHYA HOOPER Diagnostic Radiology Exam Date/Time 07/17/2018 18:08:41 EDT Exam CR Chest Portable Ordering Physician SALO DAVIS Accession Number [id number] CPT4 Codes 08973 () Reason For Exam picc Report CHEST [...] Transcribed Date and Time: 07/17/2018 7:24 Normal [facility] CR Chest Portable Patient Name: KATHYA HOOPER Diagnostic Radiology Exam Date/Time 07/17/2018 18:08:41 EDT Exam CR Chest Portable Ordering Physician SALO DAVIS Accession Number [id number] CPT4 Codes 22851 () Reason For Exam reheck line tip [...] R Transcribed Date and Time: 07/17/2018 7:21 Normal [facility] CR Chest Portable Patient Name: KATHYA HOOPER Diagnostic Radiology Exam Date/Time 07/17/2018 06:26:06 EDT Exam CR Chest Portable Ordering Physician MARIA EUGENIA PEREZ Accession Number [id number] CPT4 Codes 15258 () Reason For Exam ETT placement Report [...] Transcribed Date and Time: 07/17/2018 7:17 Normal [facility] Hemogram w/ Autodiffon 07-17 Abs Baso Cnt 0.0 10*3/uL Normal 0.0-0.2 [facility] Comment on above: Performed By: #### H EMDF, PT, BMP3M, PHOS3, MG3, CK3 #### [address] #### VD25H #### [facility] [address] [place] [address] Abs Neutrophile Cnt 8.1 10*3/uL High 1.8-7.0 [facility] Comment on above: Performed By: #### H EMDF, PT, BMP3M, PHOS3, MG3, CK3 #### [address] #### VD25H #### [facility] [address] [place] [address] Basophils/100 WBC (Bld) 0.4 % Normal 0.0-2.0 [facility] Comment on above: Performed By: #### H EMDF, PT, BMP3M, PHOS3, MG3, CK3 #### [address] #### VD25H #### [facility] [address] [place] [address] Eosinophils #/vol (Bld) 0.1 10*3/uL Normal 0.0-0.5 [facility] Comment on above: Performed By: #### H EMDF, PT, BMP3M, PHOS3, MG3, CK3 #### [facility] [address] [place], [place] #### VD25H #### [facility] [address] [place] [address] Eosinophils/100 WBC (Bld) 1.4 % Normal 1.0-6.0 [facility] Comment on above: Performed By: #### H EMDF, PT, BMP3M, PHOS3, MG3, CK3 #### [address] #### VD25H #### [facility] [address] [place] [address] Erythrocyte distribution width Ratio (RBC) 13.5 % Normal 11.5-14.5 [facility] Comment on above: Performed By: #### H EMDF, PT, BMP3M, PHOS3, MG3, CK3 #### [address] #### VD25H #### [facility] [address] [place] [address] Granulocytes/100 WBC (Bld) 78.6 % Normal 40.0-80.0 [facility] Comment on above: Performed By: #### H EMDF, PT, BMP3M, PHOS3, MG3, CK3 #### [address] #### VD25H #### [facility] [address] [place] [address] Hematocrit Volume Fraction (Bld) 31.3 % Low 40.0-52.0 [facility] Comment on above: Performed By: #### H EMDF, PT, BMP3M, PHOS3, MG3, CK3 #### [address] #### VD25H #### [facility] [address] [place] [address] Hemoglobin mass conc (Bld) 10.4 g/dL Low 13.0-18.0 [facility] Comment on above: Performed By: #### H EMDF, PT, BMP3M, PHOS3, MG3, CK3 #### [address] #### VD25H #### [facility] [address] [place] [address] Lymphocytes #/vol (Bld) 1.0 10*3/uL Normal 1.0-4.3 [facility] Comment on above: Performed By: #### H EMDF, PT, BMP3M, PHOS3, MG3, CK3 #### [address] #### VD25H #### [facility] [address] [place] [address] Lymphocytes/100 WBC (Bld) 10.0 % Low 20.0-40.0 [facility] Comment on above: Performed By: #### H EMDF, PT, BMP3M, PHOS3, MG3, CK3 #### [address] #### VD25H #### [facility] [address] [place] [address] MCH Entitic mass (RBC) 29.3 pg Normal 26.0-34.0 [facility] Comment on above: Performed By: #### H EMDF, PT, BMP3M, PHOS3, MG3, CK3 #### [address] #### VD25H #### [facility] [address] [place] [address] MCHC mass conc (RBC) 33.3 % Normal 32.0-36.0 [facility] Comment on above: Performed By: #### H EMDF, PT, BMP3M, PHOS3, MG3, CK3 #### [address] #### VD25H #### [facility] [address] [place] [address] MCV Entitic volume (RBC) 87.9 fL Normal 80.0-98.0 [facility] Comment on above: Performed By: #### H EMDF, PT, BMP3M, PHOS3, MG3, CK3 #### [place] [address] [address] [place], [place] #### VD25H #### [facility] [address] [place] [address] Monocytes #/vol (Bld) 1.0 10*3/uL High 0.0-0.8 [facility] Comment on above: Performed By: #### H EMDF, PT, BMP3M, PHOS3, MG3, CK3 #### [address] #### VD25H #### [facility] [address] [place] [address] Monocytes/100 WBC (Bld) 9.6 % Normal 2.0-10.0 [facility] Comment on above: Performed By: #### H EMDF, PT, BMP3M, PHOS3, MG3, CK3 #### [address] #### VD25H #### [facility] [address] [place] [address] Platelet mean volume Entitic volume (Bld) 7.6 fL Normal 7.4-10.4 [facility] Comment on above: Performed By: #### H EMDF, PT, BMP3M, PHOS3, MG3, CK3 #### [place] [address] [address] [place], [place] #### VD25H #### [facility] [address] [place] [address] Platelets #/vol (Bld) 307 10*3/uL Normal 140-440 [facility] Comment on above: Performed By: #### H EMDF, PT, BMP3M, PHOS3, MG3, CK3 #### [address] #### VD25H #### [facility] [address] [place] [address] RBC #/vol (Bld) 3.56 10*6/uL Low 4.40-5.90 [facility] Comment on above: Performed By: #### H EMDF, PT, BMP3M, PHOS3, MG3, CK3 #### [place] [address] [address] [place], [place] #### VD25H #### [facility] [address] [place] [address] WBC #/vol (Bld) 10.2 10*3/uL Normal 3.6-10.7 [facility] Comment on above: Performed By: #### H EMDF, PT, BMP3M, PHOS3, MG3, CK3 #### [address] #### VD25H #### [facility] [address] [place] [address] Basic Metabolic Panelon 06-29 Calcium mass conc 8.1 mg/dL Low 8.4-10.4 [facility] Comment on above: Performed By: #### H EMDF, PT, BMP3M, PHOS3, MG3, CK3 #### [address] #### VD25H #### [facility] [address] [place] [address] Anion gap molar conc 5 Normal [facility] Comment on above: Performed By: #### H EMDF, PT, BMP3M, PHOS3, MG3, CK3 #### [address] [place], [place] #### VD25H #### [facility] [address] [place] [address] CO2 molar conc 32 mmol/L High 22-30 [facility] Comment on above: Performed By: #### H EMDF, PT, BMP3M, PHOS3, MG3, CK3 #### [place] [address] [place] #### VD25H #### [facility] [address] [place] [address] Creatinine mass conc 0.62 mg/dL Normal 0.52-1.25 [facility] Comment on above: Performed By: #### H EMDF, PT, BMP3M, PHOS3, MG3, CK3 #### [facility] [address] [place], [place] #### VD25H #### [facility] [address] [place] [address] GFR/1.73 sq M predicted among blacks MDRD vol rate/area (S/P/Bld) mL/min/{1.73_m2} Normal >60 [facility] Comment on above: Performed By: #### H EMDF, PT, BMP3M, PHOS3, MG3, CK3 #### [address] #### VD25H #### [place] [address] [place] [address] GFR/1.73 sq M predicted among non-blacks MDRD vol rate/area (S/P/Bld) mL/min/{1.73_m2} Normal >60 [facility] Comment on above: Result Comment: Sour ce- MDRD equation with creatinine calibration to IDMS(NKDEP) eGFR not recommended for drug dose adjustment Performed By: #### H EMDF, PT, BMP3M, PHOS3, MG3, CK3 #### [address] #### VD25H #### [facility] [address] [place] [address] Glucose mass conc 103 mg/dL High 70-100 [facility] Comment on above: Performed By: #### H EMDF, PT, BMP3M, PHOS3, MG3, CK3 #### [address] #### VD25H #### [facility] [address] [place] [address] Urea nitrogen mass conc 20 mg/dL Normal 7-20 [facility] Comment on above: Performed By: #### H EMDF, PT, BMP3M, PHOS3, MG3, CK3 #### [facility] [address] [facility] [place] [address] #### VD25H #### [facility] [address] [place] [address] Chloride molar conc 107 mmol/L Normal 98-107 [facility] Comment on above: Performed By: #### H EMDF, PT, BMP3M, PHOS3, MG3, CK3 #### [facility] [address] [facility] [place] [address] #### VD25H #### [facility] [address] [place] [address] Potassium molar conc 3.7 mmol/L Normal 3.5-5.1 [facility] Comment on above: Performed By: #### H EMDF, PT, BMP3M, PHOS3, MG3, CK3 #### [facility] [address] [facility], [place] #### VD25H #### [facility] [address] [place] [address] Sodium molar conc 145 mmol/L Normal 135-145 [facility] Comment on above: Performed By: #### H EMDF, PT, BMP3M, PHOS3, MG3, CK3 #### [facility] [address] [facility] [place] [address] #### VD25H #### [facility] [address] [place] [address] CR Abdomen APon 07-16-2018 CR Abdomen AP Patient Name: KATHYA HOOPER Diagnostic Radiology Exam Date/Time 07/16/2018 08:00:58 EDT Exam CR Abdomen AP Ordering Physician [id number] AGUILERA Accession Number [id number] CPT4 Codes 17644 () Reason For Exam ileus Report KUB [...] Transcribed Date and Time: 07/16/2018 10:03 Normal [facility] CR Chest Portableon 07-17-19 19 CR Chest Portable Patient Name: KATHYA HOOPER Diagnostic Radiology Exam Date/Time 07/16/2018 06:19:28 EDT Exam CR Chest Portable Ordering Physician MARIA EUGENIA PEREZ Accession Number [id number] CPT4 Codes 21309 () Reason For Exam ETT placement Report [...] Transcribed Date and Time: 07/16/2018 10:10 Normal [facility] Hemogram w/ Autodiffon 07-16 Abs Baso Cnt 0.0 10*3/uL Normal 0.0-0.2 [facility] Comment on above: Performed By: #### H EMDF, PT, BMP3M, PHOS3, MG3, CK3 #### [facility] [address] [place], [place] #### VD25H #### [facility] [address] [place] [address] Abs Neutrophile Cnt 8.7 10*3/uL High 1.8-7.0 [facility] Comment on above: Performed By: #### H EMDF, PT, BMP3M, PHOS3, MG3, CK3 #### [address] #### VD25H #### [facility] [address] [place] [address] Basophils/100 WBC (Bld) 0.2 % Normal 0.0-2.0 [facility] Comment on above: Performed By: #### H EMDF, PT, BMP3M, PHOS3, MG3, CK3 #### [address] #### VD25H #### [facility] [address] [place] [address] Eosinophils #/vol (Bld) 0.1 10*3/uL Normal 0.0-0.5 [facility] Comment on above: Performed By: #### H EMDF, PT, BMP3M, PHOS3, MG3, CK3 #### [address] #### VD25H #### [facility] [address] [place] [address] Eosinophils/100 WBC (Bld) 0.7 % Low 1.0-6.0 [facility] Comment on above: Performed By: #### H EMDF, PT, BMP3M, PHOS3, MG3, CK3 #### [address] #### VD25H #### [facility] [address] [place] [address] Erythrocyte distribution width Ratio (RBC) 13.7 % Normal 11.5-14.5 [facility] Comment on above: Performed By: #### H EMDF, PT, BMP3M, PHOS3, MG3, CK3 #### [address] #### VD25H #### [facility] [address] [place] [address] Granulocytes/100 WBC (Bld) 83.0 % High 40.0-80.0 [facility] Comment on above: Performed By: #### H EMDF, PT, BMP3M, PHOS3, MG3, CK3 #### [address] #### VD25H #### [facility] [address] [place] [address] Hematocrit Volume Fraction (Bld) 30.3 % Low 40.0-52.0 [facility] Comment on above: Performed By: #### H EMDF, PT, BMP3M, PHOS3, MG3, CK3 #### [address] #### VD25H #### [facility] [address] [place] [address] Hemoglobin mass conc (Bld) 10.5 g/dL Low 13.0-18.0 [facility] Comment on above: Performed By: #### H EMDF, PT, BMP3M, PHOS3, MG3, CK3 #### [address] #### VD25H #### [facility] [address] [place] [address] Lymphocytes #/vol (Bld) 0.7 10*3/uL Low 1.0-4.3 [facility] Comment on above: Performed By: #### H EMDF, PT, BMP3M, PHOS3, MG3, CK3 #### [address] #### VD25H #### [facility] [address] [place] [address] Lymphocytes/100 WBC (Bld) 6.7 % Low 20.0-40.0 [facility] Comment on above: Performed By: #### H EMDF, PT, BMP3M, PHOS3, MG3, CK3 #### [address] #### VD25H #### [facility] [address] [place] [address] MCH Entitic mass (RBC) 30.2 pg Normal 26.0-34.0 [facility] Comment on above: Performed By: #### H EMDF, PT, BMP3M, PHOS3, MG3, CK3 #### [address] #### VD25H #### [place] [address] [place] [address] MCHC mass conc (RBC) 34.6 % Normal 32.0-36.0 [facility] Comment on above: Performed By: #### H EMDF, PT, BMP3M, PHOS3, MG3, CK3 #### [address] #### VD25H #### [place] [address] [place] [address] MCV Entitic volume (RBC) 87.3 fL Normal 80.0-98.0 [facility] Comment on above: Performed By: #### H EMDF, PT, BMP3M, PHOS3, MG3, CK3 #### [address] #### VD25H #### [place] [address] [place] [address] Monocytes #/vol (Bld) 1.0 10*3/uL High 0.0-0.8 [facility] Comment on above: Performed By: #### H EMDF, PT, BMP3M, PHOS3, MG3, CK3 #### [address] #### VD25H #### [facility] [address] [place] [address] Monocytes/100 WBC (Bld) 9.4 % Normal 2.0-10.0 [facility] Comment on above: Performed By: #### H EMDF, PT, BMP3M, PHOS3, MG3, CK3 #### [place] [address] [address] [place], [place] #### VD25H #### [facility] [address] [place] [address] Platelet mean volume Entitic volume (Bld) 6.9 fL Low 7.4-10.4 [facility] Comment on above: Performed By: #### H EMDF, PT, BMP3M, PHOS3, MG3, CK3 #### [address] #### VD25H #### [facility] [address] [place] [address] Platelets #/vol (Bld) 254 10*3/uL Normal 140-440 [facility] Comment on above: Performed By: #### H EMDF, PT, BMP3M, PHOS3, MG3, CK3 #### [address] [place], [place] #### VD25H #### [facility] [address] [place] [address] RBC #/vol (Bld) 3.47 10*6/uL Low 4.40-5.90 [facility] Comment on above: Performed By: #### H EMDF, PT, BMP3M, PHOS3, MG3, CK3 #### [address] [place], [place] #### VD25H #### [facility] [address] [place] [address] WBC #/vol (Bld) 10.5 10*3/uL Normal 3.6-10.7 [facility] Comment on above: Performed By: #### H EMDF, PT, BMP3M, PHOS3, MG3, CK3 #### [address] #### VD25H #### [facility] [address] [place] [address] Arterial Blood Gaseson 07-15 CO2 molar conc 26.7 mmol/L Normal 23.0-27.0 [facility] Comment on above: Performed By: #### H EMDF, PT, BMP3M, PHOS3, MG3, CK3 #### [address] #### VD25H #### [facility] [address] [facility] [place] [address] FIO2 50% Normal [facility] Comment on above: Performed By: #### H EMDF, PT, BMP3M, PHOS3, MG3, CK3 #### [address] #### VD25H #### [address] [place] [address] HCO3 molar conc (Bld) 25.7 mmol/L High 21.0-25.0 [facility] Comment on above: Performed By: #### H EMDF, PT, BMP3M, PHOS3, MG3, CK3 #### [address] #### VD25H #### [address] [place] [address] Hemoglobin mass conc (Bld) 12.5 g/dL Normal ScreenOnly [facility] Comment on above: Performed By: #### H EMDF, PT, BMP3M, PHOS3, MG3, CK3 #### [address] #### VD25H #### [address] [place] [address] Oxygen ppres (Bld) 90.4 mm[Hg] Normal 80.0-100.0 [facility] Comment on above: Performed By: #### H EMDF, PT, BMP3M, PHOS3, MG3, CK3 #### [place] [address] [address] [place], [place] #### VD25H #### [facility] [address] [place] [address] Oxygen saturation in Blood 96.8 % Normal 95.0-100.0 [facility] Comment on above: Performed By: #### H EMDF, PT, BMP3M, PHOS3, MG3, CK3 #### [place] [address] [address] [place], [place] #### VD25H #### [facility] [address] [place] [address] pCO2 33.4 mm[Hg] Low 35.0-45.0 [facility] Comment on above: Performed By: #### H EMDF, PT, BMP3M, PHOS3, MG3, CK3 #### [address] [place], [place] #### VD25H #### [facility] [address] [place] [address] pH (Bld) 7.504 High 7.350-7.450 [facility] Comment on above: Performed By: #### H EMDF, PT, BMP3M, PHOS3, MG3, CK3 #### [address] #### VD25H #### [facility] [address] [place] [address] Std Base Excess 2.9 mmol/L Normal -3.0-3.0 [facility] Comment on above: Performed By: #### H EMDF, PT, BMP3M, PHOS3, MG3, CK3 #### [address] [place], [place] #### VD25H #### [place] [address] [place] [address] Basic Metabolic Panelon 06-29 Anion gap molar conc 8 Normal [facility] Comment on above: Performed By: #### H EMDF, PT, BMP3M, PHOS3, MG3, CK3 #### [place] [address] [address] [place], [place] #### VD25H #### [facility] [address] [place] [address] Calcium mass conc 8.6 mg/dL Normal 8.4-10.4 [facility] Comment on above: Performed By: #### H EMDF, PT, BMP3M, PHOS3, MG3, CK3 #### [place] [address] [address] [place], [place] #### VD25H #### [facility] [address] [place] [address] CO2 molar conc 29 mmol/L Normal 22-30 [facility] Comment on above: Performed By: #### H EMDF, PT, BMP3M, PHOS3, MG3, CK3 #### [address] #### VD25H #### [facility] [address] [place] [address] Glucose mass conc 119 mg/dL High 70-100 [facility] Comment on above: Performed By: #### H EMDF, PT, BMP3M, PHOS3, MG3, CK3 #### [address] [place], [place] #### VD25H #### [facility] [address] [place] [address] Urea nitrogen mass conc 23 mg/dL High 7-20 [facility] Comment on above: Performed By: #### H EMDF, PT, BMP3M, PHOS3, MG3, CK3 #### [place] [address] [address] [facility], [place] #### [id number] #### [facility] [address] [place] [address] Creatinine mass conc 0.73 mg/dL Normal 0.52-1.25 [facility] Comment on above: Performed By: #### H EMDF, PT, BMP3M, PHOS3, MG3, CK3 #### [facility] [address] [place] [address] #### VD25H #### [facility] [address] [place] [address] GFR/1.73 sq M predicted among blacks MDRD vol rate/area (S/P/Bld) mL/min/{1.73_m2} Normal >60 [facility] Comment on above: Performed By: #### H EMDF, PT, BMP3M, PHOS3, MG3, CK3 #### [address] [place] [address] #### VD25H #### [facility] [address] [place] [address] GFR/1.73 sq M predicted among non-blacks MDRD vol rate/area (S/P/Bld) mL/min/{1.73_m2} Normal >60 [facility] Comment on above: Result Comment: Sour ce- MDRD equation with creatinine calibration to IDMS(NKDEP) eGFR not recommended for drug dose adjustment Performed By: #### H EMDF, PT, BMP3M, PHOS3, MG3, CK3 #### [address], [place] #### VD25H #### [facility] [address] [place] [address] Potassium molar conc 4.1 mmol/L Normal 3.5-5.1 [facility] Comment on above: Performed By: #### H EMDF, PT, BMP3M, PHOS3, MG3, CK3 #### [address] [place] [address] #### VD25H #### [facility] [address] [place] [address] Sodium molar conc 144 mmol/L Normal 135-145 [facility] Comment on above: Performed By: #### H EMDF, PT, BMP3M, PHOS3, MG3, CK3 #### [address] #### VD25H #### [facility] [address] [place] [address] Chloride molar conc 107 mmol/L Normal 98-107 [facility] Comment on above: Performed By: #### H EMDF, PT, BMP3M, PHOS3, MG3, CK3 #### [facility] [address] [facility] [place] [address] #### VD25H #### [facility] [address] [place] [address] CR Abdomen APon 07-15-2018 CR Abdomen AP Patient Name: KATHYA HOOPER Diagnostic Radiology Exam Date/Time 07/15/2018 09:25:44 EDT Exam CR Abdomen AP Ordering Physician JOYA ROJAS Accession Number [id number] CPT4 Codes 41565 () Reason For Exam ileus Report EXAMINATION: [...] Transcribed Date and Time: 07/15/2018 10:07 Normal [facility] CR Chest Portableon 07-16-19 19 CR Chest Portable Patient Name: KATHYA HOOPER Diagnostic Radiology Exam Date/Time 07/15/2018 06:00:00 EDT Exam CR Chest Portable Ordering Physician MARIA EUGENIA PEREZ Accession Number [id number] CPT4 Codes 33543 () Reason For Exam ETT placement Report [...] Transcribed Date and Time: 07/15/2018 9:14 Normal [facility] CULT./ST. RESPIRATORYon 06-29 CULT./ST. RESPIRATORY CULT./ST. [...] in clusters. Rare gram negative bacilli. Normal [facility] Comment on above: Order Comment: Speci men Source Comment:Sputum, Suctioned Performed By: #### H EMDF, PT, BMP3M, PHOS3, MG3, CK3 #### [facility] [address] [place] [address] #### VD25H #### [facility] [address] [place] [address] Hemogram w/ Autodiffon 07-15 Abs Baso Cnt 0.0 10*3/uL Normal 0.0-0.2 [facility] Comment on above: Performed By: #### H EMDF, PT, BMP3M, PHOS3, MG3, CK3 #### [facility] [address] [place] [address] #### VD25 #### [facility] [address] [place] [address] Abs Neutrophile Cnt 13.2 10*3/uL High 1.8-7.0 [facility] Comment on above: Performed By: #### H EMDF, PT, BMP3M, PHOS3, MG3, CK3 #### [address] [place], [place] #### VD25H #### [facility] [address] [place] [address] Basophils/100 WBC (Bld) 0.2 % Normal 0.0-2.0 [facility] Comment on above: Performed By: #### H EMDF, PT, BMP3M, PHOS3, MG3, CK3 #### [address] #### VD25H #### [place] [address] [place] [address] Eosinophils #/vol (Bld) 0.0 10*3/uL Normal 0.0-0.5 [facility] Comment on above: Performed By: #### H EMDF, PT, BMP3M, PHOS3, MG3, CK3 #### [address] #### VD25H #### [place] [address] [place] [address] Eosinophils/100 WBC (Bld) 0.1 % Low 1.0-6.0 [facility] Comment on above: Performed By: #### H EMDF, PT, BMP3M, PHOS3, MG3, CK3 #### [address] #### VD25H #### [facility] [address] [place] [address] Erythrocyte distribution width Ratio (RBC) 13.9 % Normal 11.5-14.5 [facility] Comment on above: Performed By: #### H EMDF, PT, BMP3M, PHOS3, MG3, CK3 #### [address] #### VD25H #### [facility] [address] [place] [address] Granulocytes/100 WBC (Bld) 88.1 % High 40.0-80.0 [facility] Comment on above: Performed By: #### H EMDF, PT, BMP3M, PHOS3, MG3, CK3 #### [address] #### VD25H #### [facility] [address] [place] [address] Hematocrit Volume Fraction (Bld) 35.3 % Low 40.0-52.0 [facility] Comment on above: Performed By: #### H EMDF, PT, BMP3M, PHOS3, MG3, CK3 #### [place] [address] [place], [place] #### VD25H #### [facility] [address] [place] [address] Hemoglobin mass conc (Bld) 11.9 g/dL Low 13.0-18.0 [facility] Comment on above: Performed By: #### H EMDF, PT, BMP3M, PHOS3, MG3, CK3 #### [address] [address] [place] #### VD25H #### [facility] [address] [place] [address] Lymphocytes #/vol (Bld) 0.8 10*3/uL Low 1.0-4.3 [facility] Comment on above: Performed By: #### H EMDF, PT, BMP3M, PHOS3, MG3, CK3 #### [address] #### VD25H #### [facility] [address] [place] [address] Lymphocytes/100 WBC (Bld) 5.0 % Low 20.0-40.0 [facility] Comment on above: Performed By: #### H EMDF, PT, BMP3M, PHOS3, MG3, CK3 #### [address] [place], [place] #### VD25H #### [facility] [address] [place] [address] MCH Entitic mass (RBC) 29.5 pg Normal 26.0-34.0 [facility] Comment on above: Performed By: #### H EMDF, PT, BMP3M, PHOS3, MG3, CK3 #### [address] [address] [address] [place] #### VD25H #### [facility] [address] [place] [address] MCHC mass conc (RBC) 33.8 % Normal 32.0-36.0 [facility] Comment on above: Performed By: #### H EMDF, PT, BMP3M, PHOS3, MG3, CK3 #### [address] #### VD25H #### [place] [address] [place] [address] MCV Entitic volume (RBC) 87.2 fL Normal 80.0-98.0 [facility] Comment on above: Performed By: #### H EMDF, PT, BMP3M, PHOS3, MG3, CK3 #### [address] #### VD25H #### [facility] [address] [place] [address] Monocytes #/vol (Bld) 1.0 10*3/uL High 0.0-0.8 [facility] Comment on above: Performed By: #### H EMDF, PT, BMP3M, PHOS3, MG3, CK3 #### [address] #### VD25H #### [facility] [address] [place] [address] Monocytes/100 WBC (Bld) 6.6 % Normal 2.0-10.0 [facility] Comment on above: Performed By: #### H EMDF, PT, BMP3M, PHOS3, MG3, CK3 #### [address] [place], [place] #### VD25H #### [facility] [address] [place] [address] Platelet mean volume Entitic volume (Bld) 7.9 fL Normal 7.4-10.4 [facility] Comment on above: Performed By: #### H EMDF, PT, BMP3M, PHOS3, MG3, CK3 #### [address] [place] #### VD25H #### [facility] [address] [place] [address] Platelets #/vol (Bld) 319 10*3/uL Normal 140-440 [facility] Comment on above: Performed By: #### H EMDF, PT, BMP3M, PHOS3, MG3, CK3 #### [address] #### VD25H #### [facility] [address] [place] [address] RBC #/vol (Bld) 4.05 10*6/uL Low 4.40-5.90 [facility] Comment on above: Performed By: #### H EMDF, PT, BMP3M, PHOS3, MG3, CK3 #### [address] #### VD25H #### [place] [address] [place] [address] WBC #/vol (Bld) 15.0 10*3/uL High 3.6-10.7 [facility] Comment on above: Performed By: #### H EMDF, PT, BMP3M, PHOS3, MG3, CK3 #### [address] #### VD25H #### [place] [address] [place] [address] Basic Metabolic Panelon - Anion gap molar conc 9 Normal [facility] Comment on above: Performed By: #### H EMDF, PT, BMP3M, PHOS3, MG3, CK3 #### [place] [address] [address] [facility], [place] #### VD25H #### [facility] [address] [place] [address] Calcium mass conc 7.6 mg/dL Low 8.4-10.4 [facility] Comment on above: Performed By: #### H EMDF, PT, BMP3M, PHOS3, MG3, CK3 #### [place] [address] [address] [place] #### VD25H #### [facility] [address] [place] [address] CO2 molar conc 26 mmol/L Normal 22-30 [facility] Comment on above: Performed By: #### H EMDF, PT, BMP3M, PHOS3, MG3, CK3 #### [place] [address] [facility], [place] #### VD25H #### [facility] [address] [place] [address] Glucose mass conc 148 mg/dL High 70-100 [facility] Comment on above: Performed By: #### H EMDF, PT, BMP3M, PHOS3, MG3, CK3 #### [place] [address] [facility], [place] #### VD25H #### [facility] [address] [place] [address] Urea nitrogen mass conc 16 mg/dL Normal 7-20 [facility] Comment on above: Performed By: #### H EMDF, PT, BMP3M, PHOS3, MG3, CK3 #### [place] [address] [facility], [place] #### VD25H #### [facility] [address] [place] [address] Creatinine mass conc 0.62 mg/dL Normal 0.52-1.25 [facility] Comment on above: Performed By: #### H EMDF, PT, BMP3M, PHOS3, MG3, CK3 #### [address] #### VD25H #### [facility] [address] [place] [address] GFR/1.73 sq M predicted among blacks MDRD vol rate/area (S/P/Bld) mL/min/{1.73_m2} Normal >60 [facility] Comment on above: Performed By: #### H EMDF, PT, BMP3M, PHOS3, MG3, CK3 #### [address] #### VD25H #### [facility] [address] [place] [address] GFR/1.73 sq M predicted among non-blacks MDRD vol rate/area (S/P/Bld) mL/min/{1.73_m2} Normal >60 [facility] Comment on above: Result Comment: Sour ce- MDRD equation with creatinine calibration to IDMS(NKDEP) eGFR not recommended for drug dose adjustment Performed By: #### H EMDF, PT, BMP3M, PHOS3, MG3, CK3 #### [address] #### VD25H #### [facility] [address] [place] [address] Potassium molar conc 4.5 mmol/L Normal 3.5-5.1 [facility] Comment on above: Performed By: #### H EMDF, PT, BMP3M, PHOS3, MG3, CK3 #### [address] #### VD25H #### [facility] [address] [place] [address] Sodium molar conc 137 mmol/L Normal 135-145 [facility] Comment on above: Performed By: #### H EMDF, PT, BMP3M, PHOS3, MG3, CK3 #### [address] [address] #### VD25H #### [facility] [address] [place] [address] Chloride molar conc 103 mmol/L Normal 98-107 [facility] Comment on above: Performed By: #### H EMDF, PT, BMP3M, PHOS3, MG3, CK3 #### [facility] [address] [place] [address] #### VD25H #### [facility] [address] [place] [address] CR Abdomen APon 07-14-2018 CR Abdomen AP Patient Name: KATHYA HOOPER Diagnostic Radiology Exam Date/Time 07/14/2018 19:15:43 EDT Exam CR Abdomen AP Ordering Physician [id number] THAKKAR Accession Number [id number] CPT4 Codes 49856 () Reason For Exam Distended with emesis [...] Transcribed Date and Time: 07/14/2018 7:28 Normal [facility] CR Chest Portableon 07-15-19 19 CR Chest Portable Patient Name: KATHYA HOOPER Diagnostic Radiology Exam Date/Time 07/14/2018 06:53:29 EDT Exam CR Chest Portable Ordering Physician MARIA EUGENIA PEREZ Accession Number [id number] CPT4 Codes 83927 () Reason For Exam ETT placement Report [...] Transcribed Date and Time: 07/14/2018 11:51 Normal [facility] Hemogram w/ Autodiffon 07-14 Abs Baso Cnt 0.0 10*3/uL Normal 0.0-0.2 [facility] Comment on above: Performed By: #### H EMDF, PT, BMP3M, PHOS3, MG3, CK3 #### [address] #### VD25H #### [facility] [address] [place] [address] Abs Neutrophile Cnt 11.7 10*3/uL High 1.8-7.0 [facility] Comment on above: Performed By: #### H EMDF, PT, BMP3M, PHOS3, MG3, CK3 #### [facility] [address] [place], [place] #### VD25H #### [facility] [address] [place] [address] Basophils/100 WBC (Bld) 0.3 % Normal 0.0-2.0 [facility] Comment on above: Performed By: #### H EMDF, PT, BMP3M, PHOS3, MG3, CK3 #### [address] #### VD25H #### [facility] [address] [place] [address] Eosinophils #/vol (Bld) 0.0 10*3/uL Normal 0.0-0.5 [facility] Comment on above: Performed By: #### H EMDF, PT, BMP3M, PHOS3, MG3, CK3 #### [place] [address] [address] [place], [place] #### VD25H #### [facility] [address] [place] [address] Eosinophils/100 WBC (Bld) 0.1 % Low 1.0-6.0 [facility] Comment on above: Performed By: #### H EMDF, PT, BMP3M, PHOS3, MG3, CK3 #### [address] #### VD25H #### [facility] [address] [place] [address] Erythrocyte distribution width Ratio (RBC) 13.8 % Normal 11.5-14.5 [facility] Comment on above: Performed By: #### H EMDF, PT, BMP3M, PHOS3, MG3, CK3 #### [address] [place], [place] #### VD25H #### [facility] [address] [place] [address] Granulocytes/100 WBC (Bld) 89.1 % High 40.0-80.0 [facility] Comment on above: Performed By: #### H EMDF, PT, BMP3M, PHOS3, MG3, CK3 #### [address] [place], [place] #### VD25H #### [facility] [address] [place] [address] Hematocrit Volume Fraction (Bld) 33.8 % Low 40.0-52.0 [facility] Comment on above: Performed By: #### H EMDF, PT, BMP3M, PHOS3, MG3, CK3 #### [facility] [address] [place], [place] #### VD25H #### [facility] [address] [place] [address] Hemoglobin mass conc (Bld) 11.5 g/dL Low 13.0-18.0 [facility] Comment on above: Performed By: #### H EMDF, PT, BMP3M, PHOS3, MG3, CK3 #### [address] [address] [address] [place] #### VD25H #### [facility] [address] [place] [address] Lymphocytes #/vol (Bld) 0.6 10*3/uL Low 1.0-4.3 [facility] Comment on above: Performed By: #### H EMDF, PT, BMP3M, PHOS3, MG3, CK3 #### [address] #### VD25H #### [facility] [address] [place] [address] Lymphocytes/100 WBC (Bld) 4.5 % Low 20.0-40.0 [facility] Comment on above: Performed By: #### H EMDF, PT, BMP3M, PHOS3, MG3, CK3 #### [address] #### VD25H #### [facility] [address] [place] [address] MCH Entitic mass (RBC) 29.6 pg Normal 26.0-34.0 [facility] Comment on above: Performed By: #### H EMDF, PT, BMP3M, PHOS3, MG3, CK3 #### [address] [place], [place] #### VD25H #### [facility] [address] [place] [address] MCHC mass conc (RBC) 33.9 % Normal 32.0-36.0 [facility] Comment on above: Performed By: #### H EMDF, PT, BMP3M, PHOS3, MG3, CK3 #### [facility] [address] [place], [place] #### VD25H #### [facility] [address] [place] [address] MCV Entitic volume (RBC) 87.3 fL Normal 80.0-98.0 [facility] Comment on above: Performed By: #### H EMDF, PT, BMP3M, PHOS3, MG3, CK3 #### [address] [place], [place] #### VD25H #### [facility] [address] [place] [address] Monocytes #/vol (Bld) 0.8 10*3/uL Normal 0.0-0.8 [facility] Comment on above: Performed By: #### H EMDF, PT, BMP3M, PHOS3, MG3, CK3 #### [address] #### VD25H #### [facility] [address] [place] [address] Monocytes/100 WBC (Bld) 6.0 % Normal 2.0-10.0 [facility] Comment on above: Performed By: #### H EMDF, PT, BMP3M, PHOS3, MG3, CK3 #### [address] #### VD25H #### [facility] [address] [place] [address] Platelet mean volume Entitic volume (Bld) 8.1 fL Normal 7.4-10.4 [facility] Comment on above: Performed By: #### H EMDF, PT, BMP3M, PHOS3, MG3, CK3 #### [address] #### VD25H #### [facility] [address] [place] [address] Platelets #/vol (Bld) 196 10*3/uL Normal 140-440 [facility] Comment on above: Performed By: #### H EMDF, PT, BMP3M, PHOS3, MG3, CK3 #### [facility] [address] [place] #### VD25H #### [facility] [address] [place] [address] RBC #/vol (Bld) 3.87 10*6/uL Low 4.40-5.90 [facility] Comment on above: Performed By: #### H EMDF, PT, BMP3M, PHOS3, MG3, CK3 #### [address] [address] [address] [place] #### VD25H #### [facility] [address] [place] [address] WBC #/vol (Bld) 13.2 10*3/uL High 3.6-10.7 [facility] Comment on above: Performed By: #### H EMDF, PT, BMP3M, PHOS3, MG3, CK3 #### [address] [address] [address] [place] #### VD25H #### [facility] [address] [place] [address] Add on test from [facility]on 07-13 Add on test from [facility] Rejected Normal [facility] Comment on above: Result Comment: No s pecimen available for addon. Performed By: #### H EMDF, PT, BMP3M, PHOS3, MG3, CK3 #### [address] [address] [address] [place] #### VD25H #### [facility] [address] [place] [address] Arterial Blood Gaseson 07-13 CO2 molar conc 25.6 mmol/L Normal 23.0-27.0 [facility] Comment on above: Performed By: #### H EMDF, PT, BMP3M, PHOS3, MG3, CK3 #### [place] [address] [address] [place] #### VD25H #### [place] [address] [place] [address] HCO3 molar conc (Bld) 24.5 mmol/L Normal 21.0-25.0 [facility] Comment on above: Performed By: #### H EMDF, PT, BMP3M, PHOS3, MG3, CK3 #### [address] #### VD25H #### [facility] [address] [place] [address] Hemoglobin mass conc (Bld) 9.7 g/dL Normal ScreenOnly [facility] Comment on above: Performed By: #### H EMDF, PT, BMP3M, PHOS3, MG3, CK3 #### [address] #### VD25H #### [place] [address] [place] [address] Oxygen ppres (Bld) 99.9 mm[Hg] Normal 80.0-100.0 [facility] Comment on above: Performed By: #### H EMDF, PT, BMP3M, PHOS3, MG3, CK3 #### [address] #### VD25H #### [place] [address] [place] [address] Oxygen saturation in Blood 97.5 % Normal 95.0-100.0 [facility] Comment on above: Performed By: #### H EMDF, PT, BMP3M, PHOS3, MG3, CK3 #### [address] #### VD25H #### [place] [address] [place] [address] pCO2 36.0 mm[Hg] Normal 35.0-45.0 [facility] Comment on above: Performed By: #### H EMDF, PT, BMP3M, PHOS3, MG3, CK3 #### [address] #### VD25H #### [facility] [address] [place] [address] pH (Bld) 7.450 Normal 7.350-7.450 [facility] Comment on above: Performed By: #### H EMDF, PT, BMP3M, PHOS3, MG3, CK3 #### [facility] [address] [facility], [place] #### VD25H #### [facility] [address] [place] [address] Std Base Excess 0.6 mmol/L Normal -3.0-3.0 [facility] Comment on above: Performed By: #### H EMDF, PT, BMP3M, PHOS3, MG3, CK3 #### [place] [address] [address] [facility], [place] #### VD25H #### [facility] [address] [place] [address] FIO2 .50 Normal [facility] Comment on above: Performed By: #### H EMDF, PT, BMP3M, PHOS3, MG3, CK3 #### [place] [address] [address] [facility], [place] #### VD25H #### [facility] [address] [place] [address] Basic Metabolic Panelon 03- Calcium mass conc 7.6 mg/dL Low 8.4-10.4 [facility] Comment on above: Performed By: #### H EMDF, PT, BMP3M, PHOS3, MG3, CK3 #### [place] [address] [address] [facility], [place] #### VD25H #### [facility] [address] [place] [address] Glucose mass conc 120 mg/dL High 70-100 [facility] Comment on above: Performed By: #### H EMDF, PT, BMP3M, PHOS3, MG3, CK3 #### [place] [address] [address] [facility], [place] #### VD25H #### [facility] [address] [place] [address] Anion gap molar conc 7 Normal [facility] Comment on above: Performed By: #### H EMDF, PT, BMP3M, PHOS3, MG3, CK3 #### [address] [address] #### VD25H #### [facility] [address] [place] [address] CO2 molar conc 27 mmol/L Normal 22-30 [facility] Comment on above: Performed By: #### H EMDF, PT, BMP3M, PHOS3, MG3, CK3 #### [address] [address] #### VD25H #### [place] [address] [place] [address] Creatinine mass conc 0.62 mg/dL Normal 0.52-1.25 [facility] Comment on above: Performed By: #### H EMDF, PT, BMP3M, PHOS3, MG3, CK3 #### [address] [address] #### VD25H #### [facility] [address] [place] [address] GFR/1.73 sq M predicted among blacks MDRD vol rate/area (S/P/Bld) mL/min/{1.73_m2} Normal >60 [facility] Comment on above: Performed By: #### H EMDF, PT, BMP3M, PHOS3, MG3, CK3 #### [address] [address] #### VD25H #### [place] [address] [place] [address] GFR/1.73 sq M predicted among non-blacks MDRD vol rate/area (S/P/Bld) mL/min/{1.73_m2} Normal >60 [facility] Comment on above: Result Comment: Sour ce- MDRD equation with creatinine calibration to IDMS(NKDEP) eGFR not recommended for drug dose adjustment Performed By: #### H EMDF, PT, BMP3M, PHOS3, MG3, CK3 #### [facility] [address] [place], [place] #### VD25H #### [facility] [address] [place] [address] Urea nitrogen mass conc 17 mg/dL Normal 7-20 [facility] Comment on above: Performed By: #### H EMDF, PT, BMP3M, PHOS3, MG3, CK3 #### [address] [address] [address] [place] #### VD25H #### [facility] [address] [place] [address] Chloride molar conc 105 mmol/L Normal 98-107 [facility] Comment on above: Performed By: #### H EMDF, PT, BMP3M, PHOS3, MG3, CK3 #### [address] [address] [place] #### VD25H #### [facility] [address] [place] [address] Potassium molar conc 3.8 mmol/L Normal 3.5-5.1 [facility] Comment on above: Performed By: #### H EMDF, PT, BMP3M, PHOS3, MG3, CK3 #### [address] [place], [place] #### VD25H #### [facility] [address] [place] [address] Sodium molar conc 139 mmol/L Normal 135-145 [facility] Comment on above: Performed By: #### H EMDF, PT, BMP3M, PHOS3, MG3, CK3 #### [address] [place], [place] #### VD25H #### [facility] [address] [place] [address] CR Chest Portableon 07-14-19 19 CR Chest Portable Patient Name: KATHYA HOOPER Diagnostic Radiology Exam Date/Time 07/13/2018 06:05:45 EDT Exam CR Chest Portable Ordering Physician LORYJonn MARIA EUGENIA Accession Number [id number] CPT4 Codes 87054 () Reason For Exam ETT placement Report [...] Transcribed Date and Time: 07/13/2018 6:33 Normal [facility] Calcium,Ionizedon 07-13-2018 Ionized Ca,Measured 4.10 mg/dL Low 4.30-5.20 [facility] Comment on above: Performed By: #### H EMDF, PT, BMP3M, PHOS3, MG3, CK3 #### [facility] [address] [place] [address] #### [id number] #### [facility] [address] [place] [address] pH, Ionized Calcium 7.40 Normal 7.31-7.46 [facility] Comment on above: Performed By: #### H EMDF, PT, BMP3M, PHOS3, MG3, CK3 #### [facility] [address] [place] [address] #### [id number] #### [facility] [address] [place] [address] Hemogram w/ Autodiffon 07-13 Abs Baso Cnt 0.0 10*3/uL Normal 0.0-0.2 [facility] System Comment on above: Performed By: #### H EMDF, PT, BMP3M, PHOS3, MG3, CK3 #### [facility] [address] [place], [place] #### VD25H #### [facility] [address] [place] [address] Abs Neutrophile Cnt 11.2 10*3/uL High 1.8-7.0 [facility] Comment on above: Performed By: #### H EMDF, PT, BMP3M, PHOS3, MG3, CK3 #### [address] #### VD25H #### [facility] [address] [place] [address] Basophils/100 WBC (Bld) 0.3 % Normal 0.0-2.0 [facility] Comment on above: Performed By: #### H EMDF, PT, BMP3M, PHOS3, MG3, CK3 #### [address] #### VD25H #### [facility] [address] [place] [address] Eosinophils #/vol (Bld) 0.2 10*3/uL Normal 0.0-0.5 [facility] Comment on above: Performed By: #### H EMDF, PT, BMP3M, PHOS3, MG3, CK3 #### [address] #### VD25H #### [facility] [address] [place] [address] Eosinophils/100 WBC (Bld) 1.1 % Normal 1.0-6.0 [facility] Comment on above: Performed By: #### H EMDF, PT, BMP3M, PHOS3, MG3, CK3 #### [address] #### VD25H #### [facility] [address] [place] [address] Erythrocyte distribution width Ratio (RBC) 13.9 % Normal 11.5-14.5 [facility] Comment on above: Performed By: #### H EMDF, PT, BMP3M, PHOS3, MG3, CK3 #### [place] [address] [place], [place] #### VD25H #### [facility] [address] [place] [address] Granulocytes/100 WBC (Bld) 82.2 % High 40.0-80.0 [facility] Comment on above: Performed By: #### H EMDF, PT, BMP3M, PHOS3, MG3, CK3 #### [address] [place], [place] #### VD25H #### [facility] [address] [place] [address] Hematocrit Volume Fraction (Bld) 36.7 % Low 40.0-52.0 [facility] Comment on above: Performed By: #### H EMDF, PT, BMP3M, PHOS3, MG3, CK3 #### [facility] [place] [address] [place], [place] #### VD25H #### [facility] [address] [place] [address] Hemoglobin mass conc (Bld) 12.6 g/dL Low 13.0-18.0 [facility] Comment on above: Performed By: #### H EMDF, PT, BMP3M, PHOS3, MG3, CK3 #### [address] [place], [place] #### VD25H #### [facility] [address] [place] [address] Lymphocytes #/vol (Bld) 1.1 10*3/uL Normal 1.0-4.3 [facility] Comment on above: Performed By: #### H EMDF, PT, BMP3M, PHOS3, MG3, CK3 #### [address] [place], [place] #### VD25H #### [facility] [address] [place] [address] Lymphocytes/100 WBC (Bld) 8.2 % Low 20.0-40.0 [facility] Comment on above: Performed By: #### H EMDF, PT, BMP3M, PHOS3, MG3, CK3 #### [address] [place], [place] #### VD25H #### [facility] [address] [place] [address] MCH Entitic mass (RBC) 29.6 pg Normal 26.0-34.0 [facility] Comment on above: Performed By: #### H EMDF, PT, BMP3M, PHOS3, MG3, CK3 #### [address] #### VD25H #### [facility] [address] [place] [address] MCHC mass conc (RBC) 34.4 % Normal 32.0-36.0 [facility] Comment on above: Performed By: #### H EMDF, PT, BMP3M, PHOS3, MG3, CK3 #### [address] #### VD25H #### [facility] [address] [place] [address] MCV Entitic volume (RBC) 86.2 fL Normal 80.0-98.0 [facility] Comment on above: Performed By: #### H EMDF, PT, BMP3M, PHOS3, MG3, CK3 #### [address] #### VD25H #### [facility] [address] [place] [address] Monocytes #/vol (Bld) 1.1 10*3/uL High 0.0-0.8 [facility] Comment on above: Performed By: #### H EMDF, PT, BMP3M, PHOS3, MG3, CK3 #### [address] [place], [place] #### VD25H #### [facility] [address] [place] [address] Monocytes/100 WBC (Bld) 8.2 % Normal 2.0-10.0 [facility] Comment on above: Performed By: #### H EMDF, PT, BMP3M, PHOS3, MG3, CK3 #### [address] [place], [place] #### VD25H #### [facility] [address] [place] [address] Platelet mean volume Entitic volume (Bld) 8.1 fL Normal 7.4-10.4 [facility] Comment on above: Performed By: #### H EMDF, PT, BMP3M, PHOS3, MG3, CK3 #### [address] #### VD25H #### [facility] [address] [place] [address] Platelets #/vol (Bld) 194 10*3/uL Normal 140-440 [facility] Comment on above: Performed By: #### H EMDF, PT, BMP3M, PHOS3, MG3, CK3 #### [address] #### VD25H #### [facility] [address] [place] [address] RBC #/vol (Bld) 4.26 10*6/uL Low 4.40-5.90 [facility] Comment on above: Performed By: #### H EMDF, PT, BMP3M, PHOS3, MG3, CK3 #### [address] #### VD25H #### [facility] [address] [place] [address] WBC #/vol (Bld) 13.7 10*3/uL High 3.6-10.7 [facility] Comment on above: Performed By: #### H EMDF, PT, BMP3M, PHOS3, MG3, CK3 #### [facility] [address] [place], [place] #### VD25H #### [facility] [address] [place] [address] Arterial Blood Gaseson 07-12 CO2 molar conc 26.4 mmol/L Normal 23.0-27.0 [facility] Comment on above: Performed By: #### H EMDF, PT, BMP3M, PHOS3, MG3, CK3 #### [address] #### VD25H #### [facility] [address] [place] [address] HCO3 molar conc (Bld) 25.2 mmol/L High 21.0-25.0 [facility] Comment on above: Performed By: #### H EMDF, PT, BMP3M, PHOS3, MG3, CK3 #### [address] #### VD25H #### [facility] [address] [place] [address] Hemoglobin mass conc (Bld) 13.9 g/dL Normal ScreenOnly [facility] Comment on above: Performed By: #### H EMDF, PT, BMP3M, PHOS3, MG3, CK3 #### [address] #### VD25H #### [facility] [address] [place] [address] Oxygen ppres (Bld) 83.9 mm[Hg] Normal 80.0-100.0 [facility] Comment on above: Performed By: #### H EMDF, PT, BMP3M, PHOS3, MG3, CK3 #### [address] #### VD25H #### [facility] [address] [place] [address] Oxygen saturation in Blood 96.3 % Normal 95.0-100.0 [facility] Comment on above: Performed By: #### H EMDF, PT, BMP3M, PHOS3, MG3, CK3 #### [facility] [address] [place], [place] #### VD25H #### [facility] [address] [place] [address] pCO2 38.2 mm[Hg] Normal 35.0-45.0 [facility] Comment on above: Performed By: #### H EMDF, PT, BMP3M, PHOS3, MG3, CK3 #### [address] #### VD25H #### [facility] [address] [place] [address] pH (Bld) 7.437 Normal 7.350-7.450 [facility] Comment on above: Performed By: #### H EMDF, PT, BMP3M, PHOS3, MG3, CK3 #### [address] [place], [place] #### VD25H #### [facility] [address] [place] [address] Std Base Excess 1.1 mmol/L Normal -3.0-3.0 [facility] Comment on above: Performed By: #### H EMDF, PT, BMP3M, PHOS3, MG3, CK3 #### [place] [place], [place] #### VD25H #### [facility] [address] [place] [address] FIO2 50% Normal [facility] Comment on above: Performed By: #### H EMDF, PT, BMP3M, PHOS3, MG3, CK3 #### [address] #### VD25H #### [facility] [address] [place] [address] CO2 molar conc 27.2 mmol/L High 23.0-27.0 [facility] Comment on above: Performed By: #### H EMDF, PT, BMP3M, PHOS3, MG3, CK3 #### [address] #### VD25H #### [facility] [address] [place] [address] HCO3 molar conc (Bld) 26.1 mmol/L High 21.0-25.0 [facility] Comment on above: Performed By: #### H EMDF, PT, BMP3M, PHOS3, MG3, CK3 #### [address] #### VD25H #### [facility] [address] [place] [address] Hemoglobin mass conc (Bld) 14.7 g/dL Normal ScreenOnly [facility] Comment on above: Performed By: #### H EMDF, PT, BMP3M, PHOS3, MG3, CK3 #### [address] #### VD25H #### [facility] [address] [place] [address] Oxygen ppres (Bld) 125.7 mm[Hg] High 80.0-100.0 [facility] Comment on above: Performed By: #### H EMDF, PT, BMP3M, PHOS3, MG3, CK3 #### [address] #### VD25H #### [facility] [address] [place] [address] Oxygen saturation in Blood 98.6 % Normal 95.0-100.0 [facility] Comment on above: Performed By: #### H EMDF, PT, BMP3M, PHOS3, MG3, CK3 #### [address] #### VD25H #### [facility] [address] [place] [address] pCO2 37.5 mm[Hg] Normal 35.0-45.0 [facility] Comment on above: Performed By: #### H EMDF, PT, BMP3M, PHOS3, MG3, CK3 #### [facility] [address] [place], [place] #### VD25H #### [facility] [address] [place] [address] pH (Bld) 7.460 High 7.350-7.450 [facility] Comment on above: Performed By: #### H EMDF, PT, BMP3M, PHOS3, MG3, CK3 #### [address] [place], [place] #### VD25H #### [facility] [address] [place] [address] Std Base Excess 2.4 mmol/L Normal -3.0-3.0 [facility] Comment on above: Performed By: #### H EMDF, PT, BMP3M, PHOS3, MG3, CK3 #### [place] [address] [facility], [place] #### VD25H #### [facility] [address] [place] [address] FIO2 62.5 Normal [facility] Comment on above: Performed By: #### H EMDF, PT, BMP3M, PHOS3, MG3, CK3 #### [address] [address] [place], [place] #### VD25H #### [facility] [address] [place] [address] Basic Metabolic Panelon 03- Anion gap molar conc 6 Normal [facility] Comment on above: Performed By: #### H EMDF, PT, BMP3M, PHOS3, MG3, CK3 #### [facility] [address] [facility], [place] #### VD25H #### [facility] [address] [place] [address] Calcium mass conc 8.0 mg/dL Low 8.4-10.4 [facility] Comment on above: Performed By: #### H EMDF, PT, BMP3M, PHOS3, MG3, CK3 #### [address] [address] #### VD25H #### [facility] [address] [place] [address] CO2 molar conc 28 mmol/L Normal 22-30 [facility] Comment on above: Performed By: #### H EMDF, PT, BMP3M, PHOS3, MG3, CK3 #### [address] [address] #### VD25H #### [facility] [address] [place] [address] Creatinine mass conc 0.62 mg/dL Normal 0.52-1.25 [facility] Comment on above: Performed By: #### H EMDF, PT, BMP3M, PHOS3, MG3, CK3 #### [address] [address] #### VD25H #### [facility] [address] [place] [address] GFR/1.73 sq M predicted among blacks MDRD vol rate/area (S/P/Bld) mL/min/{1.73_m2} Normal >60 [facility] Comment on above: Performed By: #### H EMDF, PT, BMP3M, PHOS3, MG3, CK3 #### [address] [address] #### VD25H #### [facility] [address] [place] [address] GFR/1.73 sq M predicted among non-blacks MDRD vol rate/area (S/P/Bld) mL/min/{1.73_m2} Normal >60 [facility] Comment on above: Result Comment: Sour ce- MDRD equation with creatinine calibration to IDMS(NKDEP) eGFR not recommended for drug dose adjustment Performed By: #### H EMDF, PT, BMP3M, PHOS3, MG3, CK3 #### [place] [facility], [place] #### VD25H #### [facility] [address] [place] [address] Glucose mass conc 125 mg/dL High 70-100 [facility] Comment on above: Performed By: #### H EMDF, PT, BMP3M, PHOS3, MG3, CK3 #### [place] [facility] [place] #### VD25H #### [facility] [address] [place] [address] Urea nitrogen mass conc 12 mg/dL Normal 7-20 [facility] Comment on above: Performed By: #### H EMDF, PT, BMP3M, PHOS3, MG3, CK3 #### [place] [address] [facility], [place] #### VD25H #### [facility] [address] [place] [address] Chloride molar conc 104 mmol/L Normal 98-107 [facility] Comment on above: Performed By: #### H EMDF, PT, BMP3M, PHOS3, MG3, CK3 #### [place] [address] [facility], [place] #### VD25H #### [facility] [address] [place] [address] Potassium molar conc 3.6 mmol/L Normal 3.5-5.1 [facility] Comment on above: Performed By: #### H EMDF, PT, BMP3M, PHOS3, MG3, CK3 #### [place] [address] [facility] [place] #### VD25H #### [facility] [address] [place] [address] Sodium molar conc 138 mmol/L Normal 135-145 [facility] Comment on above: Performed By: #### H EMDF, PT, BMP3M, PHOS3, MG3, CK3 #### [place] [address] [facility], [place] #### VD25H #### [facility] [address] [place] [address] CR Chest Portableon 07-13-19 CR Chest Portable Patient Name: KATHYA HOOPER Diagnostic Radiology Exam Date/Time 07/12/2018 10:18:11 EDT Exam CR Chest Portable Ordering Physician MARIA EUGENIA PEREZ Accession Number [id number] CPT4 Codes 89875 () Reason For Exam ETT Placement Report [...] Transcribed Date and Time: 07/12/2018 1:21 Normal [facility] CR Chest Portable Patient Name: KATHYA HOOPER Diagnostic Radiology Exam Date/Time 07/12/2018 06:19:03 EDT Exam CR Chest Portable Ordering Physician MD NATE, NICOLE LEYDI Accession Number [id number] CPT4 Codes 96152 () Reason For Exam dyspnea Report PORTABLE [...] Transcribed Date and Time: 07/12/2018 8:01 Normal [facility] Hemogram w/ Autodiffon 07-12 Abs Baso Cnt 0.0 10*3/uL Normal 0.0-0.2 [facility] Comment on above: Performed By: #### H EMDF, PT, BMP3M, PHOS3, MG3, CK3 #### [facility] [address] [place] [address] #### VD25H #### [facility] [address] [place] [address] Abs Neutrophile Cnt 10.2 10*3/uL High 1.8-7.0 [facility] Comment on above: Performed By: #### H EMDF, PT, BMP3M, PHOS3, MG3, CK3 #### [facility] [address] [place] [address] #### VD25H #### [facility] [address] [place] [address] Basophils/100 WBC (Bld) 0.4 % Normal 0.0-2.0 [facility] Comment on above: Performed By: #### H EMDF, PT, BMP3M, PHOS3, MG3, CK3 #### [facility] [address] [place], [place] #### VD25H #### [facility] [address] [place] [address] Eosinophils #/vol (Bld) 0.1 10*3/uL Normal 0.0-0.5 [facility] Comment on above: Performed By: #### H EMDF, PT, BMP3M, PHOS3, MG3, CK3 #### [address] #### VD25H #### [facility] [address] [place] [address] Eosinophils/100 WBC (Bld) 0.6 % Low 1.0-6.0 [facility] Comment on above: Performed By: #### H EMDF, PT, BMP3M, PHOS3, MG3, CK3 #### [address] #### VD25H #### [facility] [address] [place] [address] Erythrocyte distribution width Ratio (RBC) 13.5 % Normal 11.5-14.5 [facility] Comment on above: Performed By: #### H EMDF, PT, BMP3M, PHOS3, MG3, CK3 #### [address] #### VD25H #### [facility] [address] [place] [address] Granulocytes/100 WBC (Bld) 84.7 % High 40.0-80.0 [facility] Comment on above: Performed By: #### H EMDF, PT, BMP3M, PHOS3, MG3, CK3 #### [address] #### VD25H #### [facility] [address] [place] [address] Hematocrit Volume Fraction (Bld) 39.7 % Low 40.0-52.0 [facility] Comment on above: Performed By: #### H EMDF, PT, BMP3M, PHOS3, MG3, CK3 #### [address] #### VD25H #### [facility] [address] [place] [address] Hemoglobin mass conc (Bld) 13.5 g/dL Normal 13.0-18.0 [facility] Comment on above: Performed By: #### H EMDF, PT, BMP3M, PHOS3, MG3, CK3 #### [address] #### VD25H #### [facility] [address] [place] [address] Lymphocytes #/vol (Bld) 0.9 10*3/uL Low 1.0-4.3 [facility] Comment on above: Performed By: #### H EMDF, PT, BMP3M, PHOS3, MG3, CK3 #### [address] #### VD25H #### [facility] [address] [place] [address] Lymphocytes/100 WBC (Bld) 7.6 % Low 20.0-40.0 [facility] Comment on above: Performed By: #### H EMDF, PT, BMP3M, PHOS3, MG3, CK3 #### [address] #### VD25H #### [facility] [address] [place] [address] MCH Entitic mass (RBC) 29.6 pg Normal 26.0-34.0 [facility] Comment on above: Performed By: #### H EMDF, PT, BMP3M, PHOS3, MG3, CK3 #### [address] #### VD25H #### [facility] [address] [place] [address] MCHC mass conc (RBC) 34.1 % Normal 32.0-36.0 [facility] Comment on above: Performed By: #### H EMDF, PT, BMP3M, PHOS3, MG3, CK3 #### [address] [place], [place] #### VD25H #### [facility] [address] [place] [address] MCV Entitic volume (RBC) 87.0 fL Normal 80.0-98.0 [facility] Comment on above: Performed By: #### H EMDF, PT, BMP3M, PHOS3, MG3, CK3 #### [place] [place], [place] #### VD25H #### [facility] [address] [place] [address] Monocytes #/vol (Bld) 0.8 10*3/uL Normal 0.0-0.8 [facility] Comment on above: Performed By: #### H EMDF, PT, BMP3M, PHOS3, MG3, CK3 #### [place] [place], [place] #### VD25H #### [place] [address] [place] [address] Monocytes/100 WBC (Bld) 6.7 % Normal 2.0-10.0 [facility] Comment on above: Performed By: #### H EMDF, PT, BMP3M, PHOS3, MG3, CK3 #### [address] #### VD25H #### [facility] [address] [place] [address] Platelet mean volume Entitic volume (Bld) 8.4 fL Normal 7.4-10.4 [facility] Comment on above: Performed By: #### H EMDF, PT, BMP3M, PHOS3, MG3, CK3 #### [place] [address] [place], [place] #### VD25H #### [facility] [address] [place] [address] Platelets #/vol (Bld) 185 10*3/uL Normal 140-440 [facility] Comment on above: Performed By: #### H EMDF, PT, BMP3M, PHOS3, MG3, CK3 #### [place] [place], [place] #### VD25H #### [facility] [address] [place] [address] RBC #/vol (Bld) 4.57 10*6/uL Normal 4.40-5.90 [facility] Comment on above: Performed By: #### H EMDF, PT, BMP3M, PHOS3, MG3, CK3 #### [place] [place], [place] #### VD25H #### [facility] [address] [place] [address] WBC #/vol (Bld) 12.1 10*3/uL High 3.6-10.7 [facility] Comment on above: Performed By: #### H EMDF, PT, BMP3M, PHOS3, MG3, CK3 #### [place] [place], [place] #### VD25H #### [facility] [address] [place] [address] VL Venous Duplex US Lower Ex t Bilateralon 07-12-2018 VL Venous Duplex US Lower Ext Bilateral Patient Name: KATHYA HOOPER Ultrasound Exam Date/Time 07/12/2018 17:20:46 EDT Exam VL Venous Duplex US Lower Ext Bilateral Ordering Physician MD AVELAR ADAM Accession Number [id number] CPT4 Codes 92945 () Reason For Exam leg swelling Report [facility] --- Lower Extremity Venous Duplex Report Patient Name: Kathya Hooper : 1955 Study Date: 07/12/2018 W (63yrs) Age: 63 Account: [id number] Gender: M Loc: T209 BP: Ordering: Joshua Avelar Technologist: Ordering Physician: Joshua Avelar Patient Registration Supervisor: Elizabeth Sanford RVT Interpreting Physician: Krysta Arora --- Location: [facility] --- INDICATIONS: Edema. bilateral calves. [...] performed. The images were obtained using a EverTrue E9 vascular ultrasound machine. --- VENOUS FLOW [...] ---------+-------+--- --+ Electronically signed by: Krysta Arora [id number] Final Dictated: 07/13/2018 8:45 am Dictating Physician: KRYSTA ARORA Signed Date and Time: 07/13/2018 8:45 am Signed by: KRYSTA ARORA Normal [facility] Basic Metabolic Panelon 06-29 Calcium mass conc 7.8 mg/dL Low 8.4-10.4 [facility] Comment on above: Performed By: #### H EMDF, PT, BMP3M, PHOS3, MG3, CK3 #### [facility] [address] [place], [place] #### VD25H #### [facility] [address] [place] [address] Anion gap molar conc 4 Normal [facility] Comment on above: Performed By: #### H EMDF, PT, BMP3M, PHOS3, MG3, CK3 #### [employer] [address] [place], [place] #### VD25H #### [facility] [address] [place] [address] CO2 molar conc 26 mmol/L Normal 22-30 [facility] Comment on above: Performed By: #### H EMDF, PT, BMP3M, PHOS3, MG3, CK3 #### [facility] [address] [place], [place] #### VD25H #### [facility] [address] [place] [address] Glucose mass conc 118 mg/dL High 70-100 [facility] Comment on above: Performed By: #### H EMDF, PT, BMP3M, PHOS3, MG3, CK3 #### [address] [address] #### VD25H #### [facility] [address] [place] [address] Urea nitrogen mass conc 19 mg/dL Normal 7-20 [facility] Comment on above: Performed By: #### H EMDF, PT, BMP3M, PHOS3, MG3, CK3 #### [address] [address] #### VD25H #### [place] [address] [place] [address] Creatinine mass conc 0.74 mg/dL Normal 0.52-1.25 [facility] Comment on above: Performed By: #### H EMDF, PT, BMP3M, PHOS3, MG3, CK3 #### [address] [address] #### VD25H #### [facility] [address] [place] [address] GFR/1.73 sq M predicted among blacks MDRD vol rate/area (S/P/Bld) mL/min/{1.73_m2} Normal >60 [facility] Comment on above: Performed By: #### H EMDF, PT, BMP3M, PHOS3, MG3, CK3 #### [address] [address] #### VD25H #### [facility] [address] [place] [address] GFR/1.73 sq M predicted among non-blacks MDRD vol rate/area (S/P/Bld) mL/min/{1.73_m2} Normal >60 [facility] Comment on above: Result Comment: Sour ce- MDRD equation with creatinine calibration to IDMS(NKDEP) eGFR not recommended for drug dose adjustment Performed By: #### H EMDF, PT, BMP3M, PHOS3, MG3, CK3 #### [facility] [address] [facility], [place] #### VD25H #### [facility] [address] [place] [address] Chloride molar conc 112 mmol/L High 98-107 [facility] Comment on above: Performed By: #### H EMDF, PT, BMP3M, PHOS3, MG3, CK3 #### [place] [address] [facility], [place] #### VD25H #### [facility] [address] [place] [address] Potassium molar conc 3.8 mmol/L Normal 3.5-5.1 [facility] Comment on above: Performed By: #### H EMDF, PT, BMP3M, PHOS3, MG3, CK3 #### [facility] [address] [facility], [place] #### VD25H #### [facility] [address] [place] [address] Sodium molar conc 141 mmol/L Normal 135-145 [facility] Comment on above: Performed By: #### H EMDF, PT, BMP3M, PHOS3, MG3, CK3 #### [facility] [address] [facility], [place] #### VD25H #### [facility] [address] [place] [address] CR Chest 1 View Frontalon CR Chest 1 View Frontal Patient Name: KATHYA FELDER Diagnostic Radiology Exam Date/Time 07/11/2018 06:36:48 EDT Exam CR Chest 1 View Frontal Ordering Physician MD AVELAR ADAM Accession Number [id number] CPT4 Codes 95383 () Reason For Exam dyspnea Report EXAM [...] Transcribed Date and Time: 07/11/2018 7:05 Normal [facility] Hemogram w/ Autodiffon 07-11 Abs Baso Cnt 0.0 10*3/uL Normal 0.0-0.2 [facility] Comment on above: Performed By: #### H EMDF, PT, BMP3M, PHOS3, MG3, CK3 #### [facility] [address] [place] [address] #### VD25H #### [facility] [address] [place] [address] Abs Neutrophile Cnt 8.8 10*3/uL High 1.8-7.0 [facility] Comment on above: Performed By: #### H EMDF, PT, BMP3M, PHOS3, MG3, CK3 #### [facility] [address] [place] [address] #### VD25H #### [facility] [address] [place] [address] Basophils/100 WBC (Bld) 0.4 % Normal 0.0-2.0 [facility] Comment on above: Performed By: #### H EMDF, PT, BMP3M, PHOS3, MG3, CK3 #### [facility] [address] [place], [place] #### VD25H #### [facility] [address] [place] [address] Eosinophils #/vol (Bld) 0.0 10*3/uL Normal 0.0-0.5 [facility] Comment on above: Performed By: #### H EMDF, PT, BMP3M, PHOS3, MG3, CK3 #### [address] [place], [place] #### VD25H #### [facility] [address] [place] [address] Eosinophils/100 WBC (Bld) 0.4 % Low 1.0-6.0 [facility] Comment on above: Performed By: #### H EMDF, PT, BMP3M, PHOS3, MG3, CK3 #### [address] #### VD25H #### [facility] [address] [place] [address] Erythrocyte distribution width Ratio (RBC) 13.7 % Normal 11.5-14.5 [facility] Comment on above: Performed By: #### H EMDF, PT, BMP3M, PHOS3, MG3, CK3 #### [address] #### VD25H #### [facility] [address] [place] [address] Granulocytes/100 WBC (Bld) 80.6 % High 40.0-80.0 [facility] Comment on above: Performed By: #### H EMDF, PT, BMP3M, PHOS3, MG3, CK3 #### [address] #### VD25H #### [facility] [address] [place] [address] Hematocrit Volume Fraction (Bld) 32.8 % Low 40.0-52.0 [facility] Comment on above: Performed By: #### H EMDF, PT, BMP3M, PHOS3, MG3, CK3 #### [facility] [address] [place], [place] #### VD25H #### [facility] [address] [place] [address] Hemoglobin mass conc (Bld) 11.4 g/dL Low 13.0-18.0 [facility] Comment on above: Performed By: #### H EMDF, PT, BMP3M, PHOS3, MG3, CK3 #### [address] [address] [place], [place] #### VD25H #### [facility] [address] [place] [address] Lymphocytes #/vol (Bld) 1.3 10*3/uL Normal 1.0-4.3 [facility] Comment on above: Performed By: #### H EMDF, PT, BMP3M, PHOS3, MG3, CK3 #### [address] [address] [place], [place] #### VD25H #### [facility] [address] [place] [address] Lymphocytes/100 WBC (Bld) 11.5 % Low 20.0-40.0 [facility] Comment on above: Performed By: #### H EMDF, PT, BMP3M, PHOS3, MG3, CK3 #### [address] [address] [place], [place] #### VD25H #### [facility] [address] [place] [address] MCH Entitic mass (RBC) 30.2 pg Normal 26.0-34.0 [facility] Comment on above: Performed By: #### H EMDF, PT, BMP3M, PHOS3, MG3, CK3 #### [address] [place], [place] #### VD25H #### [facility] [address] [place] [address] MCHC mass conc (RBC) 34.7 % Normal 32.0-36.0 [facility] Comment on above: Performed By: #### H EMDF, PT, BMP3M, PHOS3, MG3, CK3 #### [address] #### VD25H #### [facility] [address] [place] [address] MCV Entitic volume (RBC) 86.9 fL Normal 80.0-98.0 [facility] Comment on above: Performed By: #### H EMDF, PT, BMP3M, PHOS3, MG3, CK3 #### [address] #### VD25H #### [facility] [address] [place] [address] Monocytes #/vol (Bld) 0.8 10*3/uL Normal 0.0-0.8 [facility] Comment on above: Performed By: #### H EMDF, PT, BMP3M, PHOS3, MG3, CK3 #### [address] #### VD25H #### [facility] [address] [place] [address] Monocytes/100 WBC (Bld) 7.1 % Normal 2.0-10.0 [facility] Comment on above: Performed By: #### H EMDF, PT, BMP3M, PHOS3, MG3, CK3 #### [address] #### VD25H #### [facility] [address] [place] [address] Platelet mean volume Entitic volume (Bld) 8.8 fL Normal 7.4-10.4 [facility] Comment on above: Performed By: #### H EMDF, PT, BMP3M, PHOS3, MG3, CK3 #### [address] #### VD25H #### [facility] [address] [place] [address] Platelets #/vol (Bld) 158 10*3/uL Normal 140-440 [facility] Comment on above: Performed By: #### H EMDF, PT, BMP3M, PHOS3, MG3, CK3 #### [facility] [address] [place] #### VD25H #### [facility] [address] [place] [address] RBC #/vol (Bld) 3.78 10*6/uL Low 4.40-5.90 [facility] Comment on above: Performed By: #### H EMDF, PT, BMP3M, PHOS3, MG3, CK3 #### [address] #### VD25H #### [facility] [address] [place] [address] WBC #/vol (Bld) 10.9 10*3/uL High 3.6-10.7 [facility] Comment on above: Performed By: #### H EMDF, PT, BMP3M, PHOS3, MG3, CK3 #### [address] #### VD25H #### [facility] [address] [place] [address] Magnesiumon 07-11-2018 Magnesium mass conc 2.3 mg/dL Normal 1.6-2.3 [facility] Comment on above: Performed By: #### H EMDF, PT, BMP3M, PHOS3, MG3, CK3 #### [address] #### VD25H #### [facility] [address] [place] [address] Phosphoruson 07-11-2018 Phosphate mass conc 2.8 mg/dL Normal 2.5-4.5 [facility] Comment on above: Performed By: #### H EMDF, PT, BMP3M, PHOS3, MG3, CK3 #### [address] #### VD25H #### [facility] [address] [place] [address] Basic Metabolic Panelon 06-29 Calcium mass conc 8.9 mg/dL Normal 8.4-10.4 [facility] Comment on above: Performed By: #### H EMDF, PT, BMP3M, PHOS3, MG3, CK3 #### [address] [address] [facility], [place] #### VD25H #### [facility] [address] [place] [address] Glucose mass conc 133 mg/dL High 70-100 [facility] Comment on above: Performed By: #### H EMDF, PT, BMP3M, PHOS3, MG3, CK3 #### [address] [facility], [place] #### VD25H #### [address] [place] [place] [address] Anion gap molar conc 4 Normal [facility] Comment on above: Performed By: #### H EMDF, PT, BMP3M, PHOS3, MG3, CK3 #### [address] [facility], [place] #### VD25H #### [facility] [address] [place] [address] CO2 molar conc 27 mmol/L Normal 22-30 [facility] Comment on above: Performed By: #### H EMDF, PT, BMP3M, PHOS3, MG3, CK3 #### [address] [facility], [place] #### VD25H #### [facility] [address] [place] [address] Creatinine mass conc 0.69 mg/dL Normal 0.52-1.25 [facility] Comment on above: Performed By: #### H EMDF, PT, BMP3M, PHOS3, MG3, CK3 #### [address] [address] [facility], [place] #### VD25H #### [facility] [address] [place] [address] GFR/1.73 sq M predicted among blacks MDRD vol rate/area (S/P/Bld) mL/min/{1.73_m2} Normal >60 [facility] Comment on above: Performed By: #### H EMDF, PT, BMP3M, PHOS3, MG3, CK3 #### [address] [address] #### VD25H #### [address] [place] [place] [address] GFR/1.73 sq M predicted among non-blacks MDRD vol rate/area (S/P/Bld) mL/min/{1.73_m2} Normal >60 [facility] Comment on above: Result Comment: Sour ce- MDRD equation with creatinine calibration to IDMS(NKDEP) eGFR not recommended for drug dose adjustment Performed By: #### H EMDF, PT, BMP3M, PHOS3, MG3, CK3 #### [address] #### VD25H #### [address] [place] [place] [address] Urea nitrogen mass conc 16 mg/dL Normal 7-20 [facility] Comment on above: Performed By: #### H EMDF, PT, BMP3M, PHOS3, MG3, CK3 #### [address] #### VD25H #### [facility] [address] [place] [address] Potassium molar conc 4.1 mmol/L Normal 3.5-5.1 [facility] Comment on above: Performed By: #### H EMDF, PT, BMP3M, PHOS3, MG3, CK3 #### [address] #### VD25H #### [address] [place] [place] [address] Sodium molar conc 142 mmol/L Normal 135-145 [facility] Comment on above: Performed By: #### H EMDF, PT, BMP3M, PHOS3, MG3, CK3 #### [facility] [address] [place] #### VD25H #### [facility] [address] [place] [address] Chloride molar conc 110 mmol/L High 98-107 [facility] Comment on above: Performed By: #### H EMDF, PT, BMP3M, PHOS3, MG3, CK3 #### [facility] [address] [place] #### VD25H #### [facility] [address] [place] [address] CKon 07-10-2018 CK enzyme act/vol 1291 U/L High 30-170 [facility] Comment on above: Performed By: #### H EMDF, PT, BMP3M, PHOS3, MG3, CK3 #### [facility] [address] [place] #### VD25H #### [facility] [address] [place] [address] CK enzyme act/vol 1382 U/L High 30-170 [facility] Comment on above: Performed By: #### H EMDF, PT, BMP3M, PHOS3, MG3, CK3 #### [facility] [address] [place] #### VD25H #### [facility] [address] [place] [address] CR Chest 1 View Frontalon CR Chest 1 View Frontal Patient Name: KATHYA FELDER Diagnostic Radiology Exam Date/Time 07/10/2018 06:38:06 EDT Exam CR Chest 1 View Frontal Ordering Physician MD NATE, NICOLE HOLLEY Accession Number [id number] CPT4 Codes 96744 () Reason For Exam dyspnea Report EXAMINATION: [...] Transcribed Date and Time: 07/10/2018 8:57 Normal [facility] Hemogram w/ Autodiffon 07-10 Abs Baso Cnt 0.0 10*3/uL Normal 0.0-0.2 [facility] Comment on above: Performed By: #### H EMDF, PT, BMP3M, PHOS3, MG3, CK3 #### [facility] [address] [place] [address] #### VD25H #### [facility] [address] [place] [address] Abs Neutrophile Cnt 12.2 10*3/uL High 1.8-7.0 [facility] Comment on above: Performed By: #### H EMDF, PT, BMP3M, PHOS3, MG3, CK3 #### [facility] [address] [place] [address] #### VD25H #### [facility] [address] [place] [address] Basophils/100 WBC (Bld) 0.3 % Normal 0.0-2.0 [facility] Comment on above: Performed By: #### H EMDF, PT, BMP3M, PHOS3, MG3, CK3 #### [address] [address] [place] #### VD25H #### [facility] [address] [place] [address] Eosinophils #/vol (Bld) 0.0 10*3/uL Normal 0.0-0.5 [facility] Comment on above: Performed By: #### H EMDF, PT, BMP3M, PHOS3, MG3, CK3 #### [address] [place], [place] #### VD25H #### [facility] [address] [place] [address] Eosinophils/100 WBC (Bld) 0.0 % Low 1.0-6.0 [facility] Comment on above: Performed By: #### H EMDF, PT, BMP3M, PHOS3, MG3, CK3 #### [address] [place], [place] #### VD25H #### [facility] [address] [place] [address] Erythrocyte distribution width Ratio (RBC) 13.9 % Normal 11.5-14.5 [facility] Comment on above: Performed By: #### H EMDF, PT, BMP3M, PHOS3, MG3, CK3 #### [address] #### VD25H #### [facility] [address] [place] [address] Granulocytes/100 WBC (Bld) 89.5 % High 40.0-80.0 [facility] Comment on above: Performed By: #### H EMDF, PT, BMP3M, PHOS3, MG3, CK3 #### [address] #### VD25H #### [facility] [address] [place] [address] Hematocrit Volume Fraction (Bld) 36.0 % Low 40.0-52.0 [facility] Comment on above: Performed By: #### H EMDF, PT, BMP3M, PHOS3, MG3, CK3 #### [address] [place], [place] #### VD25H #### [facility] [address] [place] [address] Hemoglobin mass conc (Bld) 12.3 g/dL Low 13.0-18.0 [facility] Comment on above: Performed By: #### H EMDF, PT, BMP3M, PHOS3, MG3, CK3 #### [address] #### VD25H #### [facility] [address] [place] [address] Lymphocytes #/vol (Bld) 0.6 10*3/uL Low 1.0-4.3 [facility] Comment on above: Performed By: #### H EMDF, PT, BMP3M, PHOS3, MG3, CK3 #### [address] #### VD25H #### [facility] [address] [place] [address] Lymphocytes/100 WBC (Bld) 4.3 % Low 20.0-40.0 [facility] Comment on above: Performed By: #### H EMDF, PT, BMP3M, PHOS3, MG3, CK3 #### [address] #### VD25H #### [facility] [address] [place] [address] MCH Entitic mass (RBC) 29.8 pg Normal 26.0-34.0 [facility] Comment on above: Performed By: #### H EMDF, PT, BMP3M, PHOS3, MG3, CK3 #### [address] #### VD25H #### [facility] [address] [place] [address] MCHC mass conc (RBC) 34.2 % Normal 32.0-36.0 [facility] Comment on above: Performed By: #### H EMDF, PT, BMP3M, PHOS3, MG3, CK3 #### [address] [address] [place] #### VD25H #### [facility] [address] [place] [address] MCV Entitic volume (RBC) 87.1 fL Normal 80.0-98.0 [facility] Comment on above: Performed By: #### H EMDF, PT, BMP3M, PHOS3, MG3, CK3 #### [address] #### VD25H #### [facility] [address] [place] [address] Monocytes #/vol (Bld) 0.8 10*3/uL Normal 0.0-0.8 [facility] Comment on above: Performed By: #### H EMDF, PT, BMP3M, PHOS3, MG3, CK3 #### [address] #### VD25H #### [facility] [address] [place] [address] Monocytes/100 WBC (Bld) 5.9 % Normal 2.0-10.0 [facility] Comment on above: Performed By: #### H EMDF, PT, BMP3M, PHOS3, MG3, CK3 #### [address] [place], [place] #### VD25H #### [facility] [address] [place] [address] Platelet mean volume Entitic volume (Bld) 8.4 fL Normal 7.4-10.4 [facility] Comment on above: Performed By: #### H EMDF, PT, BMP3M, PHOS3, MG3, CK3 #### [address] #### VD25H #### [facility] [address] [place] [address] Platelets #/vol (Bld) 155 10*3/uL Normal 140-440 [facility] Comment on above: Performed By: #### H EMDF, PT, BMP3M, PHOS3, MG3, CK3 #### [address] #### VD25H #### [facility] [address] [place] [address] RBC #/vol (Bld) 4.13 10*6/uL Low 4.40-5.90 [facility] Comment on above: Performed By: #### H EMDF, PT, BMP3M, PHOS3, MG3, CK3 #### [address] #### VD25H #### [address] [place] [place] [address] WBC #/vol (Bld) 13.6 10*3/uL High 3.6-10.7 [facility] Comment on above: Performed By: #### H EMDF, PT, BMP3M, PHOS3, MG3, CK3 #### [address] #### VD25H #### [address] [place] [place] [address] Magnesiumon 07-10-2018 Magnesium mass conc 2.3 mg/dL Normal 1.6-2.3 [facility] Comment on above: Performed By: #### H EMDF, PT, BMP3M, PHOS3, MG3, CK3 #### [address] #### VD25H #### [facility] [address] [place] [address] Phosphoruson 07-10-2018 Phosphate mass conc 2.7 mg/dL Normal 2.5-4.5 [facility] Comment on above: Performed By: #### H EMDF, PT, BMP3M, PHOS3, MG3, CK3 #### [address], [place] #### VD25H #### [facility] [address] [place] [address] Add on test from HISon 07-09 Add on test from [facility] Accepted Normal [facility] Comment on above: Result Comment: Spec imen available & acceptable for analysis. Performed By: #### A DDON #### [address] [place], [place] Arterial Blood Gaseson 07-09 CO2 molar conc 24.5 mmol/L Normal 23.0-27.0 [facility] Comment on above: Performed By: #### H EMDF, PT, BMP3M, PHOS3, MG3, CK3 #### [address] #### VD25H #### [facility] [address] [place] [address] HCO3 molar conc (Bld) 23.2 mmol/L Normal 21.0-25.0 [facility] Comment on above: Performed By: #### H EMDF, PT, BMP3M, PHOS3, MG3, CK3 #### [address] #### VD25H #### [facility] [address] [place] [address] Hemoglobin mass conc (Bld) 15.7 g/dL Normal ScreenOnly [facility] Comment on above: Performed By: #### H EMDF, PT, BMP3M, PHOS3, MG3, CK3 #### [address] #### VD25H #### [facility] [address] [place] [address] Oxygen ppres (Bld) 397.4 mm[Hg] High 80.0-100.0 [facility] Comment on above: Performed By: #### H EMDF, PT, BMP3M, PHOS3, MG3, CK3 #### [address] #### VD25H #### [facility] [address] [place] [address] Oxygen saturation in Blood 99.2 % Normal 95.0-100.0 [facility] Comment on above: Performed By: #### H EMDF, PT, BMP3M, PHOS3, MG3, CK3 #### [address] [place], [place] #### VD25H #### [facility] [address] [place] [address] pCO2 42.3 mm[Hg] Normal 35.0-45.0 [facility] Comment on above: Performed By: #### H EMDF, PT, BMP3M, PHOS3, MG3, CK3 #### [address] [place], [place] #### VD25H #### [address] [place] [place] [address] pH (Bld) 7.357 Normal 7.350-7.450 [facility] Comment on above: Performed By: #### H EMDF, PT, BMP3M, PHOS3, MG3, CK3 #### [address] [place], [place] #### VD25H #### [facility] [address] [place] [address] Std Base Excess -2.3 mmol/L Normal -3.0-3.[address] [facility] Comment on above: Performed By: #### H EMDF, PT, BMP3M, PHOS3, MG3, CK3 #### [address] [place], [place] #### VD25H #### [facility] [address] [place] [address] FIO2 100% Normal [facility] Comment on above: Performed By: #### H EMDF, PT, BMP3M, PHOS3, MG3, CK3 #### [address] [address] [place], [place] #### VD25H #### [facility] [address] [place] [address] Basic Metabolic Panelon - Calcium mass conc 8.6 mg/dL Normal 8.4-10.4 [facility] Comment on above: Performed By: #### H EMDF, PT, BMP3M, PHOS3, MG3, CK3 #### [address] [place], [place] #### VD25H #### [facility] [address] [place] [address] Glucose mass conc 150 mg/dL High 70-100 [facility] Comment on above: Performed By: #### H EMDF, PT, BMP3M, PHOS3, MG3, CK3 #### [address] [place], [place] #### VD25H #### [facility] [address] [place] [address] Anion gap molar conc 7 Normal [facility] Comment on above: Performed By: #### H EMDF, PT, BMP3M, PHOS3, MG3, CK3 #### [address] #### VD25H #### [facility] [address] [place] [address] CO2 molar conc 26 mmol/L Normal 22-30 [facility] Comment on above: Performed By: #### H EMDF, PT, BMP3M, PHOS3, MG3, CK3 #### [address] [place], [place] #### VD25H #### [facility] [address] [place] [address] Creatinine mass conc 0.80 mg/dL Normal 0.52-1.25 [facility] Comment on above: Performed By: #### H EMDF, PT, BMP3M, PHOS3, MG3, CK3 #### [address] [address] [place] #### VD25H #### [facility] [address] [place] [address] GFR/1.73 sq M predicted among blacks MDRD vol rate/area (S/P/Bld) mL/min/{1.73_m2} Normal >60 [facility] Comment on above: Performed By: #### H EMDF, PT, BMP3M, PHOS3, MG3, CK3 #### [address] #### VD25H #### [facility] [address] [place] [address] GFR/1.73 sq M predicted among non-blacks MDRD vol rate/area (S/P/Bld) mL/min/{1.73_m2} Normal >60 [facility] Comment on above: Result Comment: Sour ce- MDRD equation with creatinine calibration to IDMS(NKDEP) eGFR not recommended for drug dose adjustment Performed By: #### H EMDF, PT, BMP3M, PHOS3, MG3, CK3 #### [address] #### VD25H #### [facility] [address] [place] [address] Urea nitrogen mass conc 16 mg/dL Normal 7-20 [facility] Comment on above: Performed By: #### H EMDF, PT, BMP3M, PHOS3, MG3, CK3 #### [address] #### VD25H #### [facility] [address] [place] [address] Chloride molar conc 110 mmol/L High 98-107 [facility] Comment on above: Performed By: #### H EMDF, PT, BMP3M, PHOS3, MG3, CK3 #### [address] #### VD25H #### [facility] [address] [place] [address] Potassium molar conc 4.7 mmol/L Normal 3.5-5.1 [facility] Comment on above: Performed By: #### H EMDF, PT, BMP3M, PHOS3, MG3, CK3 #### [facility] [address] [place] [address] #### VD25H #### [facility] [address] [place] [address] Sodium molar conc 143 mmol/L Normal 135-145 [facility] Comment on above: Performed By: #### H EMDF, PT, BMP3M, PHOS3, MG3, CK3 #### [facility] [address] [place], [place] #### VD25H #### [facility] [address] [place] [address] CKon 07-09-2018 CK enzyme act/vol 1451 U/L High 30-170 [facility] Comment on above: Performed By: #### H EMDF, PT, BMP3M, PHOS3, MG3, CK3 #### [address] [place], [place] #### VD25H #### [facility] [address] [place] [address] CK enzyme act/vol 3832 U/L High 30-170 [facility] Comment on above: Performed By: #### H EMDF, PT, BMP3M, PHOS3, MG3, CK3 #### [address] [place], [place] #### VD25H #### [facility] [address] [place] [address] CR Chest 1 View Frontalon CR Chest 1 View Frontal Patient Name: KATHYA FELDER Diagnostic Radiology Exam Date/Time 07/09/2018 06:21:56 EDT Exam CR Chest 1 View Frontal Ordering Physician MD NATE, NICOLE HOLLEY Accession Number [id number] CPT4 Codes 30409 () Reason For Exam dyspnea Report CHEST [...] Transcribed Date and Time: 07/09/2018 6:39 Normal [facility] CR Chest Portableon 07-10-19 19 CR Chest Portable Patient Name: KATHYA HOOPER Diagnostic Radiology Exam Date/Time 07/09/2018 11:34:09 EDT Exam CR Chest Portable Ordering Physician [id number] INDRA ACUNA Accession Number [id number] CPT4 Codes 64069 () Reason For Exam Central line placement [...] JOHN Transcribed Date and Time: 07/09/2018 1:01 [facility] CR Chest Portable Patient Name: KATHYA HOOPER Diagnostic Radiology Exam Date/Time 07/09/2018 03:05:20 EDT Exam CR Chest Portable Ordering Physician MD NATE, NICOLE HOLLEY Accession Number [id number] CPT4 Codes 82686 () Reason For Exam intubation Report CHEST PORTABLE: Indication: Inpatient; intubation Views: Portable frontal Comparison: 07/08/2018 at 22:16 Time: 07/09/2018 at 2:46 FINDINGS: Interval intubation with endotracheal tube approximately 4.2 cm above the level of the alma. An enteric tube has been placed with distal tip below the hemidiaphragm but excluded from [id number]. Cardiac monitoring wires and leads are present. [...] R Transcribed Date and Time: 07/09/2018 3:10 [facility] CR Chest Portable Patient Name: KATHYA HOOPER Diagnostic Radiology Exam Date/Time 07/08/2018 22:31:57 EDT Exam CR Chest Portable Ordering Physician MD NATE, NICOLE HOLLEY Accession Number [id number] CPT4 Codes 07430 () Reason For Exam cough Report CHEST [...] Transcribed Date and Time: 07/08/2018 11:23 Normal [facility] CTA Head/Neck w/ + w/o contr birgit 07-09-2018 CTA Head/Neck w/ + w/o contrast Patient Name: KATHYA HOOPER CT Exam Date/Time 07/09/2018 04:42:10 EDT Exam CTA Head/Neck w/ + w/o contrast Ordering Physician MD RICKI, JORDAN Accession Number [id number] CPT4 Codes Q9967 (CT ISOVUE 370MG/[id number]), 53604 (), 19396 () Reason For Exam CERVICAL SPINE FRACTURE Report CLINICAL INFORMATION: C-spine fracture after trauma. Vascular injury suspected. CTA HEAD: After 75 ml Isovue IV contrast, 0.3 mm axial cuts were obtained through the brain. Coronal and sagittal reconstructions are reviewed. In addition, 3D images of the [place] were constructed by me and reviewed simultaneously on the separate [employer] Workstation. The examination is compared to a [...] me and reviewed simultaneously on the separate [employer] Workstation. The examination is compared to a [...] endotracheal tube terminates 2 cm above the lama. An OG tube is in place. There [...] at 0735 hrs. Report Dictated on Workstation: [employer] Final Dictated: 07/09/2018 9:50 am Dictating Physician: MD JERNIGAN JEFFREY Signed Date and Time: 07/09/2018 10:26 am Signed by: MD JERNIGAN JEFFREY Transcribed Date and Time: 07/09/2018 9:50 Normal [facility] Hemogram w/ Autodiffon 07-09 Abs Baso Cnt 0.1 10*3/uL Normal 0.0-0.2 [facility] Comment on above: Performed By: #### H EMDF, PT, BMP3M, PHOS3, MG3, CK3 #### [facility] [address] [place] [address] #### VD25H #### [facility] [address] [place] [address] Abs Neutrophile Cnt 13.3 10*3/uL High 1.8-7.0 [facility] Comment on above: Performed By: #### H EMDF, PT, BMP3M, PHOS3, MG3, CK3 #### [address] [address] #### VD25H #### [facility] [address] [place] [address] Basophils/100 WBC (Bld) 0.3 % Normal 0.0-2.0 [facility] Comment on above: Performed By: #### H EMDF, PT, BMP3M, PHOS3, MG3, CK3 #### [facility] [address] [place], [place] #### VD25H #### [facility] [address] [place] [address] Eosinophils #/vol (Bld) 0.0 10*3/uL Normal 0.0-0.5 [facility] Comment on above: Performed By: #### H EMDF, PT, BMP3M, PHOS3, MG3, CK3 #### [address] [place], [place] #### VD25H #### [facility] [address] [place] [address] Eosinophils/100 WBC (Bld) 0.0 % Low 1.0-6.0 [facility] Comment on above: Performed By: #### H EMDF, PT, BMP3M, PHOS3, MG3, CK3 #### [address] #### VD25H #### [facility] [address] [place] [address] Erythrocyte distribution width Ratio (RBC) 13.7 % Normal 11.5-14.5 [facility] Comment on above: Performed By: #### H EMDF, PT, BMP3M, PHOS3, MG3, CK3 #### [address] #### VD25H #### [facility] [address] [place] [address] Granulocytes/100 WBC (Bld) 86.5 % High 40.0-80.0 [facility] Comment on above: Performed By: #### H EMDF, PT, BMP3M, PHOS3, MG3, CK3 #### [address] #### VD25H #### [facility] [address] [place] [address] Hematocrit Volume Fraction (Bld) 45.1 % Normal 40.0-52.0 [facility] Comment on above: Performed By: #### H EMDF, PT, BMP3M, PHOS3, MG3, CK3 #### [address] [place], [place] #### VD25H #### [facility] [address] [place] [address] Hemoglobin mass conc (Bld) 15.6 g/dL Normal 13.0-18.0 [facility] Comment on above: Performed By: #### H EMDF, PT, BMP3M, PHOS3, MG3, CK3 #### [address] [address] [address] [place], [place] #### VD25H #### [facility] [address] [place] [address] Lymphocytes #/vol (Bld) 0.8 10*3/uL Low 1.0-4.3 [facility] Comment on above: Performed By: #### H EMDF, PT, BMP3M, PHOS3, MG3, CK3 #### [address] #### VD25H #### [facility] [address] [place] [address] Lymphocytes/100 WBC (Bld) 5.5 % Low 20.0-40.0 [facility] Comment on above: Performed By: #### H EMDF, PT, BMP3M, PHOS3, MG3, CK3 #### [address] #### VD25H #### [facility] [address] [place] [address] MCH Entitic mass (RBC) 29.9 pg Normal 26.0-34.0 [facility] Comment on above: Performed By: #### H EMDF, PT, BMP3M, PHOS3, MG3, CK3 #### [address] #### VD25H #### [facility] [address] [place] [address] MCHC mass conc (RBC) 34.5 % Normal 32.0-36.0 [facility] Comment on above: Performed By: #### H EMDF, PT, BMP3M, PHOS3, MG3, CK3 #### [address] [place], [place] #### VD25H #### [facility] [address] [place] [address] MCV Entitic volume (RBC) 86.7 fL Normal 80.0-98.0 [facility] Comment on above: Performed By: #### H EMDF, PT, BMP3M, PHOS3, MG3, CK3 #### [address] [place], [place] #### VD25H #### [facility] [address] [place] [address] Monocytes #/vol (Bld) 1.2 10*3/uL High 0.0-0.8 [facility] Comment on above: Performed By: #### H EMDF, PT, BMP3M, PHOS3, MG3, CK3 #### [address] [place], [place] #### VD25H #### [facility] [address] [place] [address] Monocytes/100 WBC (Bld) 7.7 % Normal 2.0-10.0 [facility] Comment on above: Performed By: #### H EMDF, PT, BMP3M, PHOS3, MG3, CK3 #### [address] #### VD25H #### [facility] [address] [place] [address] Platelet mean volume Entitic volume (Bld) 8.1 fL Normal 7.4-10.4 [facility] Comment on above: Performed By: #### H EMDF, PT, BMP3M, PHOS3, MG3, CK3 #### [address] #### VD25H #### [facility] [address] [place] [address] Platelets #/vol (Bld) 197 10*3/uL Normal 140-440 [facility] Comment on above: Performed By: #### H EMDF, PT, BMP3M, PHOS3, MG3, CK3 #### [facility] [address] [place], [place] #### VD25H #### [facility] [address] [place] [address] RBC #/vol (Bld) 5.20 10*6/uL Normal 4.40-5.90 [facility] Comment on above: Performed By: #### H EMDF, PT, BMP3M, PHOS3, MG3, CK3 #### [address] #### VD25H #### [facility] [address] [place] [address] WBC #/vol (Bld) 15.4 10*3/uL High 3.6-10.7 [facility] Comment on above: Performed By: #### H EMDF, PT, BMP3M, PHOS3, MG3, CK3 #### [address] #### VD25H #### [facility] [address] [place] [address] MRI Spine Cervical w/o Contr birgit 07-09-2018 MRI Spine Cervical w/o Contrast Patient Name: KATHYA HOOPER MRI Exam Date/Time 07/09/2018 00:44:49 EDT Exam MRI Spine Cervical w/o Contrast Ordering Physician MD CHEYENNE, BRITTANY BERRY Accession Number [id number] CPT4 Codes 45480 () Reason For Exam CERVICAL SPINE FRACTURE [...] Transcribed Date and Time: 07/09/2018 7:45 Normal [facility] Magnesiumon 07-09-2018 Magnesium mass conc 2.2 mg/dL Normal 1.6-2.3 [facility] Comment on above: Performed By: #### H EMDF, PT, BMP3M, PHOS3, MG3, CK3 #### [facility] [address] [place] [address] #### VD25H #### [facility] [address] [place] [address] Phosphoruson 07-09-2018 Phosphate mass conc 4.0 mg/dL Normal 2.5-4.5 [facility] Comment on above: Performed By: #### H EMDF, PT, BMP3M, PHOS3, MG3, CK3 #### [address] #### VD25H #### [facility] [address] [place] [address] Prothrombin Timeon 9 INR Coag RelTime (PPP) [...] PT, BMP3M, PHOS3, MG3, CK3 #### [address] #### VD25H #### [facility] [address] [place] [address] Prothrombin time (PT) Coag time (PPP) 10.3 s Normal 9.0-12.0 [facility] Comment on above: Result Comment: . Performed By: #### H EMDF, PT, BMP3M, PHOS3, MG3, CK3 #### [address] #### VD25H #### [facility] [address] [place] [address] TS GELon 07-09-2018 TS GEL ABO Group: O Rh, Gel: POS Antibody Screen Gel: NEG Normal [facility] Comment on above: Performed By: #### T SGL #### [address] [address] Vit D 25-OH, Totalon 019 Vit D 25-OH, Total 23 ng/mL Low 30-100 [facility] Comment on above: Result Comment: Ther apy is based on measurement of Total 25-OHD with the following classification levels: Less than 20 ng/mL: Indicative of Vit D deficiency 20-30 ng/mL: Suggests Vit D insufficiency Optimal: Greater than or equal to 30 ng/mL Test performed by [employer] Competitive Immunoassay, measuring Total Vitamin D, not individual fractions. Performed By: #### H EMDF, PT, BMP3M, PHOS3, MG3, CK3 #### [facility] [address] [place] [address] #### VD25H #### [facility] [address] [place] [address] Hematologyon 01-03-2003 Lymphocytes (Bld) [#/Vol] RECTUM, BIOPSY - BENIGN COLONIC MUCOSA WITH INTRAMUCOSAL LYMPHOID AGGREGATES. [facility] Otheron 01-03-2003 CONVERTED ELECTRONIC SIGNATURE BARBARA CASTILLO M.D., PATHOLOGIST (Electronic signature on file) Final Signed Out: 01/03/2003 15:09 [facility] CONVERTED ORDERING PROVIDER Ordering Provider: BENI VERA [facility] Culture, urine Bacteria identified Cx Nom (U) Culture exhibits no growth. [facility] Work Phone: Vital Signs Date Time Vital Sign Value Performing Clinician Facility 10-02-2023 13:56-0400 Diastolic blood pressure 62 mm[Hg] Fei Farooq MD Work Phone: [facility] [place] [facility] 10-02-2023 13:56-0400 Heart rate 104 /min Fei Farooq MD Work Phone: [facility] [place] [facility] 10-02-2023 13:56-0400 SaO2% (BldA) [Mass fraction] 94 % Fei Farooq MD Work Phone: [facility] [place] [facility] 10-02-2023 13:56-0400 Systolic blood pressure 124 mm[Hg] Fei Farooq MD Work Phone: [facility] [place] [facility] 10-02-2023 11:13-0400 Respiratory rate 16 /min Fei Farooq MD Work Phone: [facility] [place] [facility] 10-02-2023 09:47-0400 Body mass index (BMI) [Ratio] 26.19 kg/m2 Fei Farooq MD Work Phone: [facility] 10-02-2023 09:47-0400 Body temperature 98.01 [degF] Fei Farooq MD Work Phone: [facility] 10-02-2023 09:47-0400 Body weight 92.53 kg Fei Farooq MD Work Phone: [facility] 05-20-2022 18:30-0500 Body mass index (BMI) [Ratio] 26.32 kg/m2 Abelardo Gombash DO Work Phone: [facility] 05-20-2022 18:30-0500 Body temperature 97.3 [degF] Abelardo Gombash DO Work Phone: [facility] 05-20-2022 18:30-0500 Body weight 92.99 kg Abelardo Gombash DO Work Phone: [employer] 05-20-2022 18:30-0500 Diastolic blood pressure 108 mm[Hg] Abelardo Gombash DO Work Phone: [employer] 05-20-2022 18:30-0500 Heart rate 100 /min Abelardo Gombash DO Work Phone: [facility] 05-20-2022 18:30-0500 Respiratory rate 14 /min Abelardo Gombash DO Work Phone: [employer] 05-20-2022 18:30-0500 SaO2% (BldA) [Mass fraction] 98 % Abelardo Gombash DO Work Phone: [employer] 05-20-2022 18:30-0500 Systolic blood pressure 125 mm[Hg] Abelardo Gombash DO Work Phone: [employer] 05-15-2021 09:40-0500 Body height 188 cm Timothy Micheal DO Work Phone: [email or web address] 05-15-2021 09:40-0500 Body mass index (BMI) [Ratio] 23.75 kg/m2 Timothy Micheal DO Work Phone: [facility] 05-15-2021 09:40-0500 Body weight 83.92 kg Timothy Micheal DO Work Phone: [facility] 05-15-2021 09:38-0500 Body temperature 97.59 [degF] Timothy Micheal DO Work Phone: [facility] 05-15-2021 09:38-0500 Diastolic blood pressure 76 mm[Hg] Timothy Micheal DO Work Phone: [facility] 05-15-2021 09:38-0500 Heart rate 102 /min Timothy Micheal DO Work Phone: [facility] 05-15-2021 09:38-0500 Respiratory rate 16 /min Timothy Micheal DO Work Phone: [facility] 05-15-2021 09:38-0500 SaO2% (BldA) [Mass fraction] 99 % Timothy Micheal DO Work Phone: [facility] 05-15-2021 09:38-0500 Systolic blood pressure 115 mm[Hg] Timothy Micheal DO Work Phone: [facility] 03-24-2021 10:20-0500 Respiratory rate 18 /min Brady Nesheim DO Work Phone: [facility] 03-24-2021 10:20-0500 SaO2% (BldA) [Mass fraction] 94 % Brady Nesheim DO Work Phone: [facility] 03-24-2021 08:44-0500 Body temperature 97.7 [degF] Brady Nesheim DO Work Phone: [facility] 03-24-2021 08:44-0500 Diastolic blood pressure 55 mm[Hg] Brady Nesheim DO Work Phone: [facility] 03-24-2021 08:44-0500 Heart rate 85 /min Brady Nesheim DO Work Phone: [facility] 03-24-2021 08:44-0500 Systolic blood pressure 85 mm[Hg] Brady Nesheim DO Work Phone: [facility] 03-20-2021 13:41-0500 Body height 188 cm Brady Nesheim DO Work Phone: [facility] 03-20-2021 11:16-0500 Body mass index (BMI) [Ratio] 23.86 kg/m2 Brady Nesheim DO Work Phone: [facility] 03-20-2021 11:16-0500 Body weight 84.32 kg Brady Nesheim DO Work Phone: [facility] Comment on above: per Nataly RN (bed scal e measurement) on 03/20/2021 03-18-2021 15:02-0500 Body temperature 99.5 [degF] Boo Castro MD Work Phone: [facility] 03-18-2021 15:02-0500 Diastolic blood pressure 82 mm[Hg] Boo Castro MD Work Phone: [facility] 03-18-2021 15:02-0500 Heart rate 111 /min Boo Castro MD Work Phone: [facility] 03-18-2021 15:02-0500 Respiratory rate 18 /min Boo Castro MD Work Phone: [facility] 03-18-2021 15:02-0500 SaO2% (BldA) [Mass fraction] 93 % Boo Castro MD Work Phone: [facility] 03-18-2021 15:02-0500 Systolic blood pressure 111 mm[Hg] Boo Castro MD Work Phone: [facility] 10-30-2020 17:10-0400 Diastolic blood pressure 82 mm[Hg] Bethany Clemons MD Work Phone: [facility] Work Phone: 10-30-2020 17:10-0400 Heart rate 110 /min Bethany Clemons MD Work Phone: [facility] Work Phone: 10-30-2020 17:10-0400 Respiratory rate 16 /min Bethany Clemons MD Work Phone: [facility] Work Phone: 10-30-2020 17:10-0400 SaO2% (BldA) [Mass fraction] 99 % Bethany Clemons MD Work Phone: [facility] Work Phone: 10-30-2020 17:10-0400 Systolic blood pressure 125 mm[Hg] Bethany Clemons MD Work Phone: [facility] Work Phone: 10-30-2020 13:02-0400 Body mass index (BMI) [Ratio] 24.65 kg/m2 Bethany Clemons MD Work Phone: [facility] Work Phone: 10-30-2020 13:02-0400 Body temperature 96.91 [degF] Bethany Clemons MD Work Phone: [facility] Work Phone: 10-30-2020 13:02-0400 Body weight 87.09 kg Bethany Clemons MD Work Phone: [facility] Work Phone: 09-22-2020 05:01-0400 Diastolic blood pressure 76 mm[Hg] Elizabeth Moura MD Work Phone: [facility] Work Phone: 09-22-2020 05:01-0400 Systolic blood pressure 114 mm[Hg] Elizabeth Moura MD Work Phone: [facility] Work Phone: 09-22-2020 00:26-0400 Body temperature 97.81 [degF] Elizabeth Moura MD Work Phone: [facility] Work Phone: 09-22-2020 00:26-0400 Heart rate 86 /min Elizabeth Moura MD Work Phone: [facility] Work Phone: 09-22-2020 00:26-0400 Respiratory rate 16 /min Elizabeth Moura MD Work Phone: [facility] Work Phone: 09-22-2020 00:26-0400 SaO2% (BldA) [Mass [...] 68 mm[Hg] Elizabeth Moura MD Work Phone: [facility] Work Phone: 05-16-2019 23:00-0500 Heart rate 95 /min Elizabeth Moura MD Work Phone: [facility] Work Phone: 05-16-2019 23:00-0500 Respiratory rate 18 /min Elizabeth Moura MD [facility] Phone: [facility] Work Phone: 05-16-2019 23:00-0500 SaO2% (BldA) [Mass fraction] 100 % Elizabeth Moura MD Work Phone: [facility] Work Phone: 05-16-2019 23:00-0500 Systolic blood pressure 115 mm[Hg] Elizabeth Moura MD Work Phone: [facility] Work Phone: 05-16-2019 19:57-0500 Body temperature 98.49 [degF] Elizabeth Moura MD Work Phone: [facility] Work Phone: NEGATED: Highlighted [id number] 14:34-0500 BMI (Body Mass Index) 22.16 kg/m2 Ana Diesch [employer] [facility] Work Phone: NEGATED: Highlighted [id number] 14:34-0500 Body weight 78.02 kg Ana Diesch [employer] [facility] Work Phone: NEGATED: Highlighted [id number] 14:34-0500 Body weight 78 kg Ana Diesch [employer] [facility] Work Phone: NEGATED: Highlighted [id number] 14:34-0500 BP Diastolic 66 mm[Hg] Ana Diesch [employer] [facility] Work Phone: NEGATED: Highlighted [id number] 14:34-0500 BP Systolic 102 mm[Hg] Ana Diesch [employer] [facility] Work Phone: NEGATED: Highlighted [id number] 14:34-0500 Height 187.96 cm Ana Diesch [employer] [facility] Work Phone: NEGATED: Highlighted [id number] 14:34-0500 Height 188 cm Ana Diesch [employer] [facility] Work Phone: NEGATED: Highlighted [id number] 14:34-0500 Pulse (Heart Rate) 104 /min Ana patel [facility] Work Phone: Encounters Encounter Date Encounter Type Care Provider Facility Start: 10-14-2024 ambulatory Renard GARLAND Faci lity:[facility] Start: 10-07-2024 ambulatory Renard GARLAND Faci lity:[facility] Start: 09-30-2024 ambulatory Renard GARLAND Faci lity:[facility] Start: 09-30-2024 Registered Referred Renard Burgos - [facility] Start: 09-24-2024 ambulatory Renard GARLAND Faci lity:[facility] Start: 09-24-2024 Registered Referred Renard Burgos - [facility] Start: 09-16-2024 ambulatory Renard GARLAND Faci lity:[facility] Start: 09-16-2024 Registered Referred Renard Burgos - [facility] Start: 09-11-2024 End: 09-11-2024 ambulatory Renard GARLAND [facility] Work Phone: Start: 09-11-2024 End: 09-11-2024 Departed Referred Renard Burgos -[facility] Start: 09-11-2024 Registered Referred Renard Burgos - [facility] Start: 09-11-2024 End: 09-11-2024 ambulatory Renard GARLAND Facility:[facility] Start: 09-09-2024 End: 09-09-2024 ambulatory Renard GARLAND [facility] Work Phone: Start: 09-09-2024 End: 09-09-2024 Departed Referred Renard Burgos -[facility] Start: 09-09-2024 Registered Referred Renard Burgos - [facility] Start: 09-09-2024 End: 09-09-2024 ambulatory Renard GARLAND Facility:[facility] Start: 09-02-2024 End: 09-02-2024 ambulatory Renard GARLAND [facility] Work Phone: Start: 09-02-2024 End: 09-02-2024 Departed Referred Renard Burgos -[facility] Start: 09-02-2024 Registered Referred Renard Burgos - [facility] Start: 09-02-2024 End: 09-02-2024 ambulatory Renard GARLAND Facility:[facility] Start: 08-26-2024 End: 08-26-2024 ambulatory Renard Shelliediego GARLAND [facility] Work Phone: Start: 08-26-2024 End: 08-26-2024 Departed Referred Renard Burgos -[facility] Start: 08-26-2024 Registered Referred Renard Burgos - [facility] Start: 08-26-2024 End: 08-26-2024 ambulatory Renard GARLAND Facility:[facility] Start: 08-23-2024 End: 08-23-2024 Departed Referred Renard Amezquitaros -[facility] Start: 08-23-2024 Registered Referred Renard Burgos - [facility] Start: 08-23-2024 End: 08-23-2024 ambulatory Renard GARLAND Facility:[facility] Start: 08-19-2024 End: 08-19-2024 ambulatory Renard GARLAND [facility] Work Phone: Start: 08-19-2024 End: 08-19-2024 Departed Referred Renard Burgos -[facility] Start: 08-19-2024 Registered Referred Renard Burgos - [facility] Start: 08-19-2024 End: 08-19-2024 ambulatory Renard GARLAND Facility:[facility] Start: 08-12-2024 End: 08-12-2024 ambulatory Renard GARLAND [facility] Work Phone: Start: 08-12-2024 End: 08-12-2024 Departed Referred Renard Burgos -[facility] Start: 08-12-2024 Registered Referred Renard Burgos - [facility] Start: 08-12-2024 End: 08-12-2024 ambulatory Renard GARLAND Facility:[facility] Start: 08-05-2024 End: 08-05-2024 Departed Referred Renard Burgos -[facility] Start: 08-05-2024 Registered Referred Renard Burgos - [facility] Start: 08-05-2024 End: 08-05-2024 ambulatory Renard GARLAND Facility:[facility] Start: 07-29-2024 End: 07-29-2024 ambulatory Renard GARLAND [facility] Work Phone: Start: 07-29-2024 End: 07-29-2024 [facility]ed [facility]erred [facility] Start: 07-29-2024 Registered [facility]erred [facility] Start: 07-29-2024 End: 07-29-2024 ambulatory Renard GARLAND Facility:[facility] Start: 07-22-2024 End: 07-22-2024 ambulatory Renard GARLAND [facility] Work Phone: Start: 07-22-2024 End: 07-22-2024 Departed Referred [facility] Start: 07-22-2024 Registered Referred Renard Burgos - [facility] Start: 07-22-2024 End: 07-22-2024 ambulatory Renard GARLAND Facility:[facility] Start: 07-16-2024 End: 07-16-2024 ambulatory Renard GARLAND [facility] Work Phone: Start: 07-16-2024 End: 07-16-2024 Departed Referred [facility] Start: 07-16-2024 Registered Referred Renard Burgos - [facility] Start: 07-15-2024 End: 07-16-2024 ambulatory Renard GARLAND [facility] Work Phone: Start: 07-15-2024 End: 07-15-2024 Departed Referred Renard Shelliesaros -[facility] Start: 07-15-2024 Registered Referred Renard Hensleysaros - [facility] Start: 07-15-2024 End: 07-15-2024 ambulatory Renard GARLAND Facility:[facility] Start: 07-08-2024 End: 07-08-2024 ambulatory Renard GARLAND [facility] Work Phone: Start: 07-08-2024 End: 07-08-2024 Departed Referred Renard Shelliesaros -[facility] Start: 07-08-2024 Registered Referred Renard Shelliesaros - [facility] Start: 07-08-2024 End: 07-08-2024 ambulatory Renard GARLAND Facility:[facility] Start: 07-01-2024 End: 07-01-2024 ambulatory Renard GARLAND [facility] Work Phone: Start: 07-01-2024 End: 07-01-2024 Departed Referred Renard Shellieros -[facility] Start: 07-01-2024 Registered Referred Renard Shelliesaros - [facility] Start: 07-01-2024 End: 07-01-2024 ambulatory Renard GARLAND Facility:[facility] Start: 06-27-2024 End: 06-27-2024 ambulatory Renard GARLAND [facility] Work Phone: Start: 06-27-2024 End: 06-27-2024 Departed Referred Renard Hensleysaros -[facility] Start: 06-27-2024 Registered Referred Renard Shelliesaros - [facility] Start: 06-27-2024 End: 06-27-2024 ambulatory Renard GARLAND Facility:[facility] Start: 06-24-2024 End: 06-24-2024 Subsequent hospital visit by physician Rashaad Pink NP Work Phone: [facility] Imaging Comment on above: Chronic cough Start: 06-24-2024 End: 06-24-2024 ambulatory [facility] Start: 06-24-2024 End: 06-24-2024 Departed Referred Renard Burgos -[facility] Start: 06-24-2024 Registered Referred Renard Burgos - [facility] Start: 06-24-2024 End: 06-24-2024 ambulatory Renard GARLAND Facility:[facility] Start: 06-17-2024 End: 06-17-2024 ambulatory Renard GARLAND [facility] Work Phone: Start: 06-17-2024 End: 06-17-2024 Departed Referred Renard Burgos -[facility] Start: 06-17-2024 Registered Referred Renard Burgos - [facility] Start: 06-17-2024 End: 06-17-2024 ambulatory Renard GARLAND Facility:[facility] Start: 06-12-2024 End: 09-11-2024 Transcribe Orders Rashaad Smith APRN - [employer] Work Phone: [facility] Scheduling Comment on above: Chronic cough (Prima ry Dx) Start: 06-10-2024 End: 06-10-2024 ambulatory Renard GARLAND [facility] Work Phone: Start: 06-10-2024 End: 06-10-2024 Departed Referred Renard Burgos -[facility] Start: 06-10-2024 Registered Referred Renard Burgos - [facility] Start: 06-10-2024 End: 06-10-2024 ambulatory Renard GARLAND Facility:[facility] Start: 06-07-2024 End: 06-07-2024 ambulatory Renard GARLAND [facility] Work Phone: Start: 06-07-2024 End: 06-07-2024 Departed Referred Renard Burgos -[facility] Start: 06-07-2024 Registered Referred Renard Burgos - [facility] Start: 06-07-2024 End: 06-07-2024 ambulatory Renard GARLAND Facility:[facility] Start: 06-03-2024 End: 06-03-2024 ambulatory Renard GARLAND [facility] Work Phone: Start: 06-03-2024 End: 06-03-2024 Departed Referred [facility] [employer] Start: 06-03-2024 End: 06-03-2024 ambulatory Renard GARLAND Facility:[facility] Start: 05-27-2024 End: 05-27-2024 Departed Referred Renard Burgos -[employer] Start: 05-27-2024 End: 05-27-2024 ambulatory Renard GARLAND Facility:[facility] Start: 05-20-2024 End: 05-20-2024 Departed Referred Renard Burgos -[employer] Start: 05-20-2024 End: 05-20-2024 ambulatory Renard GARLAND Facility:[facility] Start: 05-13-2024 End: 05-13-2024 Departed Referred Renard Burgos -[employer] Start: 05-13-2024 End: 05-13-2024 ambulatory Renard GARLAND Facility:[facility] Start: 05-06-2024 End: 05-06-2024 Departed Referred [facility] [employer] Start: 05-06-2024 End: 05-06-2024 ambulatory Renard GARLAND Facility:[facility] Start: 05-03-2024 End: 05-03-2024 Telephone encounter Renard Shelliediego Work Phone: [facility] Clinical Communication Comment on above: Other Start: 04-29-2024 End: 04-29-2024 Departed Referred Renard Burgos -[employer] Start: 04-29-2024 End: 04-29-2024 ambulatory Renard GARLAND Facility:[facility] Start: 04-22-2024 End: 04-22-2024 Departed Referred Renard Burgos -[employer] Start: 04-22-2024 End: 04-22-2024 ambulatory Renard GARLAND Facility:[facility] Start: 04-15-2024 End: 04-15-2024 Departed Referred Renard Burgos -[employer] Start: 04-15-2024 End: 04-15-2024 ambulatory Renard GARLAND Facility:[facility] Start: 04-08-2024 ambulatory Renard GARLAND Faci lity:[facility] Start: 04-08-2024 Registered Referred Renard Amezquitaros - [employer] Start: 04-01-2024 ambulatory Renard GARLAND Faci lity:[facility] Start: 04-01-2024 Registered Referred Renard Hensleysaros - [employer] Start: 03-25-2024 End: 03-25-2024 Departed Referred Renard Burgos -[employer] Start: 03-25-2024 End: 03-25-2024 ambulatory Renard GARLAND Facility:[facility] Start: 03-18-2024 End: 03-18-2024 Departed Referred Renard Burgos -[employer] Start: 03-18-2024 End: 03-18-2024 ambulatory Renard GARLAND Facility:[facility] Start: 03-11-2024 End: 03-11-2024 Departed Referred Renard Amezquitaros -[employer] Start: 03-11-2024 End: 03-11-2024 ambulatory Renard GARLAND Facility:[facility] Start: 03-04-2024 End: 03-04-2024 ambulatory Renard GARLAND Facility:[facility] Start: 02-26-2024 End: 02-26-2024 ambulatory Renard Burgos OLS Facility:[facility] Start: 02-23-2024 End: 02-23-2024 ambulatory Renard Burgos OLS Facility:[facility] Start: 02-19-2024 End: 02-19-2024 ambulatory Renard Burgos OLS Facility:[facility] Start: 02-12-2024 End: 02-12-2024 ambulatory Renard Hensleysahola OLS Facility:[facility] Start: 02-05-2024 End: 02-05-2024 ambulatory Renard Burgos OLS Facility:[facility] Start: 01-29-2024 End: 01-29-2024 ambulatory Renard Amezquitaros OLS Facility:[facility] Start: 01-22-2024 End: 01-22-2024 ambulatory Renard Hensleysaros OLS Facility:[facility] Start: 01-15-2024 ambulatory Renard Burgos OLS Faci lity:[facility] Start: 01-08-2024 End: 01-08-2024 ambulatory Renard Hensleysaros OLS Facility:[facility] Start: 01-02-2024 ambulatory Renard Hensleysaros OLS Faci lity:[facility] Start: 12-25-2023 ambulatory Renard Hensleysaros OLS Faci lity:[facility] Start: 12-18-2023 End: 12-18-2023 ambulatory Renard Hensleysaros OLS Facility:[facility] Start: 12-11-2023 End: 12-11-2023 ambulatory Renard Hensleysaros OLS Facility:[facility] Start: 12-04-2023 End: 12-04-2023 ambulatory Renard Hensleysahola OLS Facility:[facility] Start: 11-27-2023 End: 11-27-2023 ambulatory Renard Burgos OLS Facility:[facility] Start: 11-22-2023 End: 11-22-2023 ambulatory RENARD HENSLEYDIEGO [facility] Start: 11-22-2023 End: 11-22-2023 Subsequent hospital visit by physician Renard Burgos Work Phone: [facility] X-ray Imaging Comment on above: Dysphagia, oropharyn geal phase; Feeding difficulties Start: 11-20-2023 End: 11-20-2023 ambulatory Renard GARLAND Facility:[facility] Start: 11-13-2023 End: 11-13-2023 ambulatory Renard Burgos OLS Facility:[facility] Start: 11-06-2023 End: 11-06-2023 ambulatory Renard Hensleysaros OLS Facility:[facility] Start: 10-30-2023 End: 10-30-2023 ambulatory Renard Hensleysahola OLS Facility:[facility] Start: 10-23-2023 End: 10-23-2023 ambulatory Renard Hensleysaros OLS Facility:[facility] Start: 10-16-2023 End: 01-15-2024 Transcribe Orders Renard Burgos Work Phone: [facility] Central Scheduling Comment on above: Dysphagia, oropharyn geal phase (Primary Dx); Feeding difficulties Start: 10-02-2023 End: 10-02-2023 Emergency department patient visit Fei Farooq MD Work Phone: [facility] ED Comment on above: Dyspnea, unspecified type (Primary Dx) Start: 08-07-2023 Registered Referred [facility] [employer] Start: 07-31-2023 End: 07-31-2023 ambulatory [facility] Work Phone: Start: 07-31-2023 End: 07-31-2023 Departed Referred [facility] [employer] Start: 07-31-2023 Registered Referred [facility] [employer] Start: 07-24-2023 End: 07-24-2023 ambulatory [facility] Work Phone: Start: 07-24-2023 End: 07-24-2023 [facility] Start: 07-17-2023 End: 07-17-2023 ambulatory [facility] Work Phone: Start: 07-17-2023 End: 07-17-2023 Departed Referred [facility] [employer] Start: 07-17-2023 [facility] Start: 07-10-2023 End: 07-10-2023 ambulatory [facility] Work Phone: Start: 07-10-2023 End: 07-10-2023 Departed Referred [facility] [employer] Start: 07-10-2023 [facility] [employer] Start: 07-03-2023 End: 07-03-2023 ambulatory [facility] Work Phone: Start: 07-03-2023 End: 07-03-2023 Departed Referred [facility] [employer] Start: 07-03-2023 Registered Referred [facility] Start: 06-26-2023 [facility] Start: 06-19-2023 End: 06-19-2023 ambulatory [facility] Work Phone: Start: 06-19-2023 End: 06-19-2023 [facility] Start: 06-19-2023 [facility] Start: 06-12-2023 End: 06-12-2023 ambulatory [facility] Work Phone: Start: 06-12-2023 End: 06-12-2023 [facility] Start: 06-12-2023 [facility] Start: 06-05-2023 End: 06-05-2023 ambulatory [facility] Work Phone: Start: 06-05-2023 End: 06-05-2023 [facility] Start: 06-05-2023 [facility] Start: 05-29-2023 End: 05-29-2023 [facility] Start: 05-29-2023 Registered Referred [facility] Start: 05-22-2023 End: 05-22-2023 ambulatory [facility] Work Phone: Start: 05-22-2023 End: 05-22-2023 [facility] Start: 05-22-2023 Registered Referred [facility] Start: 05-15-2023 End: 05-15-2023 [facility] Start: 05-15-2023 [facility] Start: 05-08-2023 End: 05-08-2023 ambulatory [facility] Work Phone: Start: 05-08-2023 End: 05-08-2023 [facility] Start: 04-17-2023 End: 04-17-2023 ambulatory [facility] Work Phone: Start: 04-17-2023 End: 04-17-2023 [facility] Start: 04-17-2023 [facility] Start: 04-14-2023 End: 04-14-2023 ambulatory [facility] Work Phone: Start: 04-14-2023 End: 04-14-2023 [facility] Start: 04-14-2023 [facility] Start: 04-10-2023 End: 04-10-2023 [facility] Start: 04-10-2023 Registered Referred [facility] Start: 04-03-2023 End: 04-03-2023 ambulatory [facility] Work Phone: Start: 04-03-2023 End: 04-03-2023 [facility] Start: 04-03-2023 [facility] Start: 03-27-2023 End: 03-27-2023 ambulatory [facility] Work Phone: Start: 03-27-2023 End: 03-27-2023 [facility] [employer] [facility] Start: 03-27-2023 [facility] Start: 03-20-2023 End: 03-20-2023 ambulatory [facility] Work Phone: Start: 03-20-2023 End: 03-20-2023 Departed Referred [facility] Start: 03-20-2023 Registered Referred [facility] Start: 03-16-2023 End: 03-16-2023 ambulatory [facility] Work Phone: Start: 03-16-2023 End: 03-16-2023 Departed Referred [facility] Start: 03-16-2023 Registered Referred [facility] Start: 03-13-2023 End: 03-13-2023 ambulatory [facility] Work Phone: Start: 03-13-2023 End: 03-13-2023 [facility] Start: 03-06-2023 End: 03-06-2023 ambulatory [facility] Work Phone: Start: 03-06-2023 End: 03-06-2023 Departed Referred [facility] Start: 03-06-2023 Registered Referred [facility] Start: 02-27-2023 End: 02-27-2023 ambulatory [facility] Work Phone: Start: 02-27-2023 End: 02-27-2023 Departed Referred [facility] Start: 02-20-2023 End: 02-20-2023 ambulatory [facility] Work Phone: Start: 02-20-2023 End: 02-20-2023 Departed Referred [facility] Start: 02-20-2023 Registered Referred [facility] Start: 02-13-2023 End: 02-13-2023 ambulatory [facility] Work Phone: Start: 02-13-2023 End: 02-13-2023 [facility] Start: 02-13-2023 Registered Referred [facility] Start: 02-06-2023 End: 02-06-2023 ambulatory [facility] Work Phone: Start: 02-06-2023 End: 02-06-2023 Departed Referred [facility] Start: 02-06-2023 Registered Referred [facility] Start: 01-30-2023 End: 01-30-2023 ambulatory [facility] Work Phone: Start: 01-30-2023 End: 01-30-2023 [facility] Start: 01-30-2023 Registered Referred [facility] Start: 01-23-2023 End: 01-23-2023 [facility] Start: 01-23-2023 [facility] Start: 01-16-2023 End: 01-16-2023 ambulatory [facility] Work Phone: Start: 01-16-2023 End: 01-16-2023 [facility] Start: 01-16-2023 Registered Referred [facility] Start: 01-09-2023 End: 01-09-2023 [facility] Start: 01-09-2023 [facility] Start: 01-03-2023 End: 01-03-2023 ambulatory [facility] Work Phone: Start: 01-03-2023 End: 01-03-2023 [facility] Start: 01-03-2023 [facility] Start: 12-26-2022 End: 12-26-2022 ambulatory [facility] Work Phone: Start: 12-26-2022 End: 12-26-2022 Departed Referred [facility] Start: 12-26-2022 Registered Referred [facility] Start: 12-19-2022 End: 12-19-2022 ambulatory [facility] Work Phone: Start: 12-19-2022 End: 12-19-2022 [facility] Start: 12-19-2022 Registered Referred [facility] Start: 12-12-2022 End: 12-12-2022 [facility] Start: 12-12-2022 [facility] Start: 12-05-2022 End: 12-05-2022 ambulatory [facility] Work Phone: Start: 12-05-2022 End: 12-05-2022 [facility] Start: 12-05-2022 [facility] Start: 11-28-2022 End: 11-28-2022 ambulatory [facility] Work Phone: Start: 11-28-2022 End: 11-28-2022 [facility] Start: 11-28-2022 [facility] Start: 11-21-2022 End: 11-21-2022 ambulatory [facility] Work Phone: Start: 11-21-2022 End: 11-21-2022 [facility] Start: 11-21-2022 [facility] Start: 11-14-2022 End: 11-14-2022 ambulatory [facility] Work Phone: Start: 11-14-2022 End: 11-14-2022 Departed Referred [facility] Start: 11-14-2022 Registered Referred [facility] Start: 11-07-2022 Registered Referred [facility] Start: 10-31-2022 End: 10-31-2022 ambulatory [facility] Work Phone: Start: 10-31-2022 End: 10-31-2022 [facility] Start: 10-31-2022 [facility] Start: 10-24-2022 End: 10-24-2022 ambulatory [facility] Work Phone: Start: 10-24-2022 End: 10-24-2022 [facility] Start: 10-24-2022 [facility] Start: 10-17-2022 End: 10-17-2022 [facility] Start: 10-17-2022 Registered Referred [facility] Start: 10-10-2022 End: 10-10-2022 ambulatory [facility] Work Phone: Start: 10-10-2022 End: 10-10-2022 [facility] Start: 10-10-2022 Registered Referred [facility] Start: 10-03-2022 End: 10-03-2022 ambulatory [facility] Work Phone: Start: 10-03-2022 End: 10-03-2022 [facility]ed [facility] Start: 09-19-2022 End: 09-19-2022 [facility] Start: 09-19-2022 [facility] Start: 09-12-2022 End: 09-12-2022 ambulatory [facility] Work Phone: Start: 09-12-2022 End: 09-12-2022 [facility] Start: 09-05-2022 End: 09-05-2022 Departed Referred [facility] Start: 09-05-2022 Registered Referred [facility] Start: 08-29-2022 End: 08-29-2022 [facility] Start: 08-29-2022 [facility] Start: 08-22-2022 End: 08-22-2022 ambulatory [facility] Work Phone: Start: 08-22-2022 End: 08-22-2022 [facility] Start: 08-22-2022 [facility] Start: 08-15-2022 End: 08-15-2022 ambulatory [facility] Work Phone: Start: 08-15-2022 End: 08-15-2022 [facility] Start: 08-15-2022 [facility] Start: 08-08-2022 End: 08-08-2022 [facility] Start: 08-08-2022 [facility] Start: 08-01-2022 End: 08-01-2022 ambulatory [facility] Work Phone: Start: 08-01-2022 End: 08-01-2022 [facility] Start: 08-01-2022 [facility] Start: 07-25-2022 End: 07-25-2022 ambulatory [facility] Work Phone: Start: 07-25-2022 End: 07-25-2022 Departed Referred [facility] Start: 07-25-2022 Registered Referred [facility] Start: 07-19-2022 End: 07-19-2022 Departed Referred [facility] Start: 07-19-2022 Registered Referred [facility] Start: 07-18-2022 End: 07-18-2022 ambulatory [facility] Work Phone: Start: 07-18-2022 End: 07-18-2022 Departed Referred [facility] Start: 07-18-2022 Registered Referred [facility] Start: 07-11-2022 End: 07-11-2022 ambulatory [facility] Work Phone: Start: 07-11-2022 End: 07-11-2022 Departed Referred [facility] Start: 07-11-2022 Registered Referred [facility] Start: 07-04-2022 End: 07-04-2022 Departed Referred [facility] Start: 07-04-2022 Registered Referred [facility] Start: 06-27-2022 End: 06-27-2022 ambulatory [facility] Work Phone: Start: 06-27-2022 End: 06-27-2022 Departed Referred [facility] Start: 06-27-2022 Registered Referred [facility] Start: 06-20-2022 End: 06-20-2022 ambulatory [facility] Work Phone: Start: 06-20-2022 End: 06-20-2022 Departed Referred [facility] Start: 06-20-2022 Registered Referred [facility] Start: 06-13-2022 End: 06-13-2022 ambulatory [facility] Work Phone: Start: 06-13-2022 End: 06-13-2022 Departed Referred [facility] [employer] Start: 06-13-2022 Registered Referred [facility] [employer] Start: 06-06-2022 End: 06-06-2022 Departed Referred [facility] [employer] Start: 06-06-2022 Registered Referred [facility] [employer] Start: 05-30-2022 End: 05-30-2022 ambulatory [facility] Work Phone: Start: 05-30-2022 End: 05-30-2022 Departed Referred [facility] [employer] Start: 05-23-2022 End: 05-23-2022 ambulatory [facility] Work Phone: Start: 05-23-2022 End: 05-23-2022 Departed Referred [facility] [employer] Start: 05-23-2022 Registered Referred [facility] [employer] Start: 05-20-2022 End: 05-20-2022 Emergency department patient visit Abelardo Wilkersongeorgie GOMEZ Work Phone: [facility] ED Comment on above: Dislodged gastrostom y tube (Primary Dx) Start: 05-16-2022 End: 05-16-2022 Departed Referred [facility] [employer] Start: 05-16-2022 Registered Referred [facility] [employer] Start: 05-09-2022 End: 05-09-2022 ambulatory [facility] Work Phone: Start: 05-09-2022 End: 05-09-2022 Departed Referred [facility] [employer] Start: 05-09-2022 Registered Referred [facility] [employer] Start: 05-03-2022 End: 05-03-2022 ambulatory [facility] Work Phone: Start: 05-03-2022 End: 05-03-2022 [facility] Start: 05-03-2022 [facility] Start: 04-26-2022 End: 04-26-2022 [facility] [employer] Start: 04-26-2022 [facility] Start: 04-18-2022 End: 04-18-2022 ambulatory [facility] Work Phone: Start: 04-18-2022 End: 04-18-2022 [facility] Start: 04-18-2022 [facility] [employer] [facility] Start: 04-14-2022 End: 04-14-2022 ambulatory [facility] Work Phone: Start: 04-14-2022 End: 04-14-2022 [facility] Start: 04-14-2022 [facility] Start: 04-11-2022 End: 04-11-2022 ambulatory [facility] Work Phone: Start: 04-11-2022 End: 04-11-2022 [facility] [facility] Start: 04-11-2022 [facility] Start: 04-04-2022 End: 04-04-2022 ambulatory [facility] Work Phone: Start: 04-04-2022 End: 04-04-2022 [facility] Start: 04-04-2022 [facility] Start: 03-28-2022 End: 03-28-2022 ambulatory [facility] Work Phone: Start: 03-28-2022 End: 03-28-2022 Departed Referred [facility] Start: 03-28-2022 Registered Referred [facility] Start: 03-21-2022 End: 03-21-2022 ambulatory [facility] Work Phone: Start: 03-21-2022 End: 03-21-2022 Departed Referred [facility] Start: 03-21-2022 Registered Referred [facility] Start: 03-14-2022 End: 03-14-2022 Departed Referred [facility] Start: 03-14-2022 Registered Referred [facility] Start: 2022 End: 2022 ambulatory [facility] Work Phone: Start: 2022 End: 2022 Departed Referred [facility] Start: 2022 Registered Referred [facility] [employer] [employer] Start: 02-28-2022 End: 02-28-2022 Departed Referred [facility] Start: 02-28-2022 Registered Referred [facility] [place] [facility] Start: 02-21-2022 End: 02-21-2022 ambulatory [facility] Work Phone: Start: 02-21-2022 End: 02-21-2022 Departed Referred [facility] Start: 02-21-2022 Registered Referred [facility] [place] [facility] Start: 02-14-2022 End: 02-14-2022 ambulatory [facility] Work Phone: Start: 02-14-2022 End: 02-14-2022 Departed Referred [facility] Start: 02-14-2022 Registered Referred [facility] [place] [facility] Start: 02-07-2022 End: 02-07-2022 ambulatory [facility] Work Phone: Start: 02-07-2022 End: 02-07-2022 Departed Referred [facility] Start: 02-07-2022 Registered Referred [facility] [place] [facility] Start: 01-31-2022 End: 01-31-2022 ambulatory [facility] Work Phone: Start: 01-31-2022 End: 01-31-2022 Departed Referred [facility] Start: 01-31-2022 Registered Referred [facility] [place] [facility] Start: 01-24-2022 End: 01-24-2022 ambulatory [facility] Work Phone: Start: 01-24-2022 End: 01-24-2022 Departed Referred [facility] Start: 01-24-2022 Registered Referred [facility] [place] [facility] Start: 01-17-2022 End: 01-17-2022 Departed Referred [facility] Start: 01-17-2022 Registered Referred [facility] [place] [facility] Start: 01-10-2022 End: 01-10-2022 ambulatory [facility] Work Phone: Start: 01-10-2022 End: 01-10-2022 Departed Referred [facility] Start: 01-10-2022 Registered Referred [facility] [place] [facility] Start: 01-04-2022 End: 01-04-2022 ambulatory [facility] Work Phone: Start: 01-04-2022 End: 01-04-2022 Departed Referred [facility] Start: 01-04-2022 Registered Referred [facility] [place] [facility] Start: 12-27-2021 End: 12-27-2021 ambulatory [facility] Work Phone: Start: 12-27-2021 End: 12-27-2021 Departed Referred [facility] Start: 12-27-2021 Registered Referred [facility] Start: 12-20-2021 End: 12-20-2021 ambulatory [facility] Work Phone: Start: 12-20-2021 End: 12-20-2021 [facility] Start: 12-20-2021 Registered Referred [facility] Start: 12-13-2021 End: 12-13-2021 [facility] Start: 12-13-2021 Registered Referred [facility] Start: 12-06-2021 End: 12-06-2021 ambulatory [facility] Work Phone: Start: 12-06-2021 End: 12-06-2021 [facility] Start: 12-06-2021 Registered Referred [facility] [place] Start: 11-29-2021 End: 11-29-2021 ambulatory [facility] Work Phone: Start: 11-29-2021 End: 11-29-2021 Departed Referred [facility] Start: 11-29-2021 [facility] Start: 11-22-2021 End: 11-22-2021 Departed Referred [facility] Start: 11-22-2021 [facility] Start: 11-15-2021 End: 11-15-2021 [facility] Start: 11-15-2021 [facility] Start: 11-08-2021 End: 11-08-2021 Departed Referred [facility] Start: 10-25-2021 Registered Referred [facility] Start: 10-18-2021 Registered Referred [facility] Start: 10-11-2021 Registered Referred [facility] Start: 10-04-2021 Registered Referred [facility] Start: 09-28-2021 End: 09-28-2021 [facility] Start: 09-28-2021 Registered Referred [facility] Start: 09-20-2021 End: 09-20-2021 [facility] Start: 09-20-2021 Registered Referred [facility] Start: 09-13-2021 End: 09-13-2021 [facility] Start: 09-13-2021 Registered Referred [facility] Start: 09-06-2021 End: 09-06-2021 [facility] Start: 09-06-2021 Registered Referred [facility] Start: 08-30-2021 End: 08-30-2021 Departed Referred [facility] Start: 08-30-2021 Registered Referred [facility] Start: 08-23-2021 End: 08-23-2021 Departed Referred [facility] Start: 08-23-2021 Registered Referred [facility] Start: 08-18-2021 End: 08-18-2021 [facility] Start: 08-18-2021 Registered Referred [facility] Start: 08-16-2021 End: 08-16-2021 Departed Referred [facility] Start: 08-16-2021 Registered Referred [facility] [place] [facility] Start: 08-09-2021 End: 08-09-2021 Departed Referred [facility] Start: 08-02-2021 End: 08-02-2021 Departed Referred [facility] Start: 08-02-2021 Registered Referred [facility] [place] Start: 07-26-2021 End: 07-26-2021 [facility] Start: 07-26-2021 [facility] Start: 07-19-2021 End: 07-19-2021 [facility] Start: 07-19-2021 Registered Referred [facility] Start: 07-12-2021 End: 07-12-2021 [facility] Start: 07-05-2021 End: 07-05-2021 Departed Referred [facility] Start: 07-05-2021 Registered Referred [facility] [place] Start: 06-28-2021 End: 06-28-2021 [facility] Start: 06-28-2021 Registered Referred [facility] [place] [facility] Start: 06-21-2021 End: 06-21-2021 [facility] Start: 06-21-2021 [facility] Start: 06-14-2021 Registered Referred [facility] [place] Start: 06-07-2021 End: 06-07-2021 [facility] Start: 06-07-2021 Registered Referred [facility] Start: 05-31-2021 End: 05-31-2021 Departed Referred [facility] Start: 05-31-2021 Registered Referred [facility] Start: 05-24-2021 End: 05-24-2021 Departed Referred [facility] Start: 05-17-2021 Registered Referred [facility] Start: 05-15-2021 End: 05-15-2021 Emergency department patient visit Timothy Burton DO Work Phone: [facility] Comment on above: PEG tube malfunction (HCC) (Primary Dx) Start: 05-14-2021 Registered Referred [facility] Start: 05-10-2021 Registered [facility] Start: 05-03-2021 Registered Referred [facility] Start: 04-26-2021 Registered [facility] Start: 04-19-2021 Registered Referred [facility] Start: 04-12-2021 Reg[facility] Start: 04-07-2021 [facility] Start: 03-19-2021 End: 03-24-2021 Evaluation and management of inpatient Brady Desai DO Work Phone: [facility] Comment on above: Respiratory syncytia l virus (RSV) (Primary Dx); Hypoxia Start: 03-18-2021 End: 03-18-2021 Emergency department patient visit Boo Castro MD Work Phone: [facility] Comment on above: Respiratory syncytia l virus (RSV) (Primary Dx); Hypoxia Start: 10-30-2020 End: 10-30-2020 Emergency department patient visit Bethany Clemons MD Work Phone: [facility] Comment on above: Feeding tube dysfunc tion, initial encounter (Primary Dx) Start: 09-22-2020 End: 09-22-2020 Emergency department patient visit Elizabeth Moura MD Work Phone: [facility] Comment on above: PEG tube malfunction (HCC) (Primary Dx) Start: 06-26-2020 End: 06-26-2020 Emergency department patient visit Abelardo Rios Work Phone: [facility] Comment on above: PEG tube malfunction (HCC) (Primary Dx) Start: 05-22-2019 End: 05-22-2019 Patient encounter procedure Jarvis Kendall MD Work Phone: [facility] Work Phone: Start: 05-22-2019 End: 05-22-2019 Pt evaluation Jarvis Kendall MD Work Phone: [facility] Work Phone: Start: 05-16-2019 End: 05-16-2019 Emergency department patient visit Elizabeth Moura MD Work Phone: [facility] Comment on above: Contusion of right h ip, initial encounter (Primary Dx) Start: 08-15-2018 Evaluation and management of inpatient UNKNOWN PROVIDER [facility] Start: 07-08-2018 Evaluation and management of inpatient JORDAN RICKI [facility] Start: 01-02-2003 End: 01-02-2003 Patient encounter procedure Beni Cappsr Work Phone: [facility] Start: 01-02-2003 Results Only Beni Smithdir Work Phone: [facility] Procedures Date Procedure Procedure Detail Performing Clinician Start: 07-16-2024 Vitamin D, 25-hydrox y measurement Renard GARLAND Comment on above: Vitamin D StatusDefi ciency: <20 ng/mL (50nmol/L)Insufficiency: 20-30 ng/mL (50-75 nmol/L)Sufficiency: 30-100 ng/mL (75-250 nmol/L)Toxicity: >100 ng/mL (>250 nmol/L) Start: 06-27-2024 Urine culture Renard GARLAND Start: 06-27-2024 Urnls dip stick/tabl et reagent auto microscopy Renard Burgos GILL Start: 06-24-2024 Measurement of renal function Renard Burgos GILL Comment on above: GFR Calc Start: 06-07-2024 Urine culture Renard GARLAND Start: 06-07-2024 Urnls dip stick/tabl et reagent [...] Radiologic exam abdo men 1 view Dejah Hazel DO Work Phone: Start: 08-18-2021 Urine culture [...] End: 05-22-2019 Arthrocentesis aspir&/inj major jt/bursa w/o Jarvis Kendall MD Work Phone: Start: 05-22-2019 [...] EMDF, PT, BMP3M, PHOS3, MG3, CK3 #### [employer] [address], [place] #### [id number] #### [facility] [address] [place] [address] Start: 07-27-2018 Microscopic examinat ion of blood, culture Comment on above: Order Comment: Speci men Source Comment:Blood Performed By: #### H EMDF, PT, BMP3M, PHOS3, MG3, CK3 #### [facility] [address], [place] #### [id number] #### [facility] [address] [place] [address] Start: 07-19-2018 Microscopic examinat ion of blood, culture Comment on above: Order Comment: Speci men Source Comment:Blood Performed By: #### H EMDF, PT, BMP3M, PHOS3, MG3, CK3 #### [facility] [address] [place] [address] #### [id number] #### [facility] [address] [place] [address] Start: 01-02-2003 CONVERTED SURGICAL PATHOLOGY Beni Vera Work Phone: Urine culture NEGATED: Highlighted rowStart: 05-22-2019 End: 05-22-2019 Documentation of current medications Ana Stevenson [employer] NEGATED: Highlighted rowStart: 05-22-2019 End: 05-22-2019 Smoking cessation education Ana Stevenson [employer] Plan of Treatment Date Care Activity Detail Author Start: 2032 RSV Immunization for Adults (1 - 1-dose 75+ series) RSV Immunization for Adults (1 - 1-dose 75+ series) [facility] [place] [facility] Start: 01-10-2027 DTaP/Tdap/Td vaccine (2 - Td or Tdap) DTaP/Tdap/Td vaccine (2 - Td or Tdap) [facility] Start: 01-10-2027 DTaP/Tdap/Td vaccine (2 - Td) DTaP/Tdap/Td vaccine (2 - Td) [facility] Work Phone: Start: 01-10-2027 DTaP/Tdap/Td Vaccine s (2 - Td or Tdap) DTaP/Tdap/Td Vaccines (2 - Td or Tdap) [facility] [place] [facility] Start: 12-30-2024 Influenza vaccination Influenz a Vaccine (Season Ended) [facility] [place] [facility] Start: 03-22-2024 Diabetes mellitus screening Diabetes Screening [facility] [place] [facility] Start: 12-31-2023 COVID-19 Vaccine ( season) COVID-19 Vaccine ( season) [facility] [place] [facility] Start: 12-31-2023 COVID-19 Vaccine ( season) COVID-19 Vaccine ( season) [facility] [place] [facility] Start: 12-31-2023 COVID-19 Vaccine ( season) COVID-19 Vaccine ( season) [facility] [place] [facility] Start: 12-31-[address] [facility] Start: 01-30-2023 Bacteria identified in Urine by Culture Urine Culture [facility] Start: 01-30-2023 [facility] Start: 12-30-2022 COVID-19 Vaccine ( season) COVID-19 Vaccine ( season) [facility] [place] [facility] Start: 2022 Pneumococcal 0-64 ye ars Vaccine (2 of 2 - PPSV23) Pneumococcal 0-64 years Vaccine (2 of 2 - PPSV23) [facility] Start: 2022 Pneumococcal 0-64 ye ars Vaccine (2 of 2) Pneumococcal 0-64 years Vaccine (2 of 2) [facility] Work Phone: Start: 2022 Pneumococcal Vaccine : 65+ Years (2 of 2 - PCV) Pneumococcal Vaccine: 65+ Years (2 of 2 - PCV) [facility] [place] [facility] Start: 12-30-2021 Influenza vaccination Influenza Vacc ine (#1) [facility] [place] [facility] Start: 12-30-2020 Influenza vaccination [facility] Start: 12-31-2019 Influenza vaccination Flu vaccine (# 1) [facility] Work Phone: Start: 08-18-2019 A1C test (Diabetic o r Prediabetic) A1C test (Diabetic or Prediabetic) [facility] Work Phone: Start: 08-18-2019 HbA1c (Bld) [Mass fraction] A1C test (Diabetic or Prediabetic) [facility] Work Phone: Start: 08-18-2019 Hemoglobin A1c measurement A1C test (Diabetic or Prediabetic) [facility] Start: 05-22-2019 End: 05-22-2019 Appointment Appointment [facility] Work Phone: Start: 02-07-2019 Lipid panel Lipid screen [facility] Start: 02-07-2019 Lipid screen Lipid screen [facility] Work Phone: Start: 12-30-2018 Influenza vaccination Flu vaccine (# 1) [facility] Work Phone: Start: 01-10-2018 Pneumococcal Vaccine : 50+ Years (2 of 2 - PCV) Pneumococcal Vaccine: 50+ Years (2 of 2 - PCV) [facility] [place] [facility] Start: 01-10-2018 Pneumococcal Vaccine : 65+ Years (2 - PCV) Pneumococcal Vaccine: 65+ Years (2 - PCV) [facility] [place] [facility] Start: 2017 RSV Immunization age d 60 or older (1 - 1-dose 60+ series) RSV Immunization aged 60 or older (1 - 1-dose 60+ series) [facility] [place] [facility] Start: 2007 Colon cancer screen colonoscopy Colon cancer screen colonoscopy [facility] Work Phone: Start: 2007 Screening for malign ant neoplasm of colon Colon cancer screen colonoscopy [facility] Work Phone: Start: 2007 Shingles Vaccine (1 of 2) Shingles Vaccine (1 of 2) [facility] Start: 2007 Zoster Vaccines (1 o f 2) Zoster Vaccines (1 of 2) [facility] [place] [facility] Start: 2002 Screening for malign ant neoplasm of colon Colon cancer screen colonoscopy [facility] Start: 1976 Hepatitis A Vaccines (1 of 2 - Risk 2-dose series) Hepatitis A Vaccines (1 of 2 - Risk 2-dose series) [facility] [place] [facility] Start: 1975 Hepatitis C screening Hepatitis C Sc reening [facility] [place] [facility] Start: 1969 COVID-19 Vaccine (1) COVID-19 Vaccin e (1) [facility] Start: 1969 Depression Monitoring Depression Mon [facility] Start: 1969 Depression Screen Depression Screen [facility] Start: 1962 COVID-19 Vaccine (1) COVID-19 Vaccin e (1) [facility] Start: 1957 COVID-19 Vaccine (#1) COVID-19 Vacci ne (#1) [facility] [place] [facility] Start: 1957 Annual wellness visit Medicare Initial Physical (IPPE) [facility] [place] [facility] Start: 1957 Hepatitis B Vaccines (1 of 3 - 3-dose series) Hepatitis B Vaccines (1 of 3 - 3-dose series) [facility] [place] [facility] Start: 1957 Lipid panel Lipid Panel [facility] Start: 1957 Screening for malign ant neoplasm of colon [facility] [place] [facility] Basic metabolic 2000 panel - Serum or Plasma Basic Metabolic Panel Lab Routine Daily until discontinued starting 03/23/2021, 2 completed [email or web address] Work Phone: Comment on above: Daily until disconti nued starting 03/23/2021, 2 completed CBC W Auto Different ial panel - Blood CBC Auto Differential Lab Routine Daily until discontinued starting 03/23/2021, 2 completed [email or web address] Work Phone: Comment on above: Daily until disconti nued starting 03/23/2021, 2 completed End: 06-24-2024 CT Chest WO contrast [employer] Work Phone: Comment on above: Once for 1 Occurrenc es starting 06/24/2024 until 06/24/2024 Culture, Blood 2 Culture, Blood 2 Microbiology STAT 03/19/2021 6:26 PM EST [email or web address] Work Phone: End: 03-20-2021 Culture, Respiratory Culture, Respiratory Microbiology Routine One Time for 1 Occurrences starting 03/20/2021 until 03/20/2021 [email or web address] Work Phone: Comment on above: One Time for 1 Occur rences starting 03/20/2021 until 03/20/2021 EKG 12 Lead EKG 12 Lead ECG STAT 03/18/2021 3:20 PM EST [email or web address] Work Phone: Feeding Tube Feeding Tube Pro cedures Routine 10/30/2020 2:22 PM EDT [email or web address] Work Phone: End: 09-22-2020 FL WATER SOLUBLE ENEMA W OR WO KUB FL WATER SOLUBLE ENEMA W OR WO KUB Imaging STAT Once for 1 Occurrences starting 09/22/2020 until 09/22/2020 [email or web address] Work Phone: Comment on above: Once for 1 Occurrenc es starting 09/22/2020 until 09/22/2020 End: 03-23-2021 Glucose [Mass/volume] in Serum or Plasma POCT GLUCOSE Point of Care Testing Routine Now Then Every 6hr for 7 Occurrences starting 03/21/2021 until 03/23/2021 [email or web address] Work Phone: Comment on above: Now Then Every 6hr f or 7 Occurrences starting 03/21/2021 until 03/23/2021 High Frequency Chest Wall Oscillation (HFCWO) High Frequency Chest Wall Oscillation (HFCWO) Respiratory Care Routine (respiratory use only) until discontinued starting 03/22/2021 [employer] Phone: Comment on above: (respirato ry use only) until discontinued starting 03/22/2021 End: 03-20-2021 Legionella Antigen, Urine Legionella Antigen, Urine Microbiology Routine One Time for 1 Occurrences starting 03/20/2021 until 03/20/2021 [employer] Phone: Comment on above: One Time for 1 Occur rences starting 03/20/2021 until 03/20/2021 Microscopic examinat ion of blood, culture Culture, Blood Microbiology STAT 03/19/2021 6:26 PM EST [email or web address] Work Phone: End: 03-20-2021 Microscopic observation [Identifier] in Unspecified specimen by Gram stain Gram Stain Microbiology Routine Once for 1 Occurrences starting 03/20/2021 until 03/20/2021 [employer] Phone: Comment on above: Once for 1 Occurrenc es starting 03/20/2021 until 03/20/2021 Oxygen therapy [[facility] Data Set] Initiate Oxygen Therapy Protocol Respiratory Care Routine Daily until discontinued starting 03/20/2021 [employer] Phone: Comment on above: Daily until disconti nued starting 03/20/2021 Patient Education \cps-sql1\CPS_ PtEducati on\CDC_FALL_PREVENTION. pdf, \cps-sql1\CPS_PtEducati on\quitting_smoking_[id number].pdf [facility] Work Phone: RT Communication Order RT Commun ication Order Respiratory Care STAT Daily until discontinued starting 03/18/2021 [email or web address] Work Phone: Comment on above: Daily until disconti nued starting 03/18/2021 RT Communication Order RT Commun ication Order Respiratory Care Routine Daily until discontinued starting 03/20/2021 [email or web address] Work Phone: Comment on above: Daily until disconti nued starting 03/20/2021 End: 03-20-2021 STREP PNEUMONIAE ANTIGEN STREP PNEUMONIAE ANTIGEN Microbiology Routine One Time for 1 Occurrences starting 03/20/2021 until 03/20/2021 [facility] Work Phone: Comment on above: One Time for 1 Occur rences starting 03/20/2021 until 03/20/2021 End: 03-18-2021 Urinalysis Urinalysis Lab STAT One Time for 1 Occurrences starting 03/18/2021 until 03/18/2021 [facility] Work Phone: Comment on above: One Time for 1 Occur rences starting 03/18/2021 until 03/18/2021 End: 03-18-2021 Urine Drug Screen Urine Drug Screen Lab STAT One Time for 1 Occurrences starting 03/18/2021 until 03/18/2021 [facility] Work Phone: Comment on above: One Time for 1 Occur rences starting 03/18/2021 until 03/18/2021 End: 09-22-2020 XR ABDOMEN (KUB) (SINGLE AP VIEW) XR ABDOMEN (KUB) (SINGLE AP VIEW) Imaging Routine Once for 1 Occurrences starting 09/22/2020 until 09/22/2020 [facility] Work Phone: Comment on above: Once for 1 Occurrenc es starting 09/22/2020 until 09/22/2020 Immunizations Immunization Date Immunization Notes Care Provider [facility] 02-02-2021 influenza virus vacc ine, unspecified formulation Rashaad Smith [employer] Work Phone: [facility] [place] [facility] 01-10-2017 pneumococcal polysaccharide vaccine, 23 valent Elizabeth Moura MD Work Phone: [facility] 01-10-2017 tetanus toxoid, redu delia diphtheria toxoid, and acellular pertussis vaccine, adsorbed Elizabeth Moura MD Work Phone: [facility] Work Phone: Payers Date Payer Category Payer Self-pay [id number] 2019 Medicaid [id number] 2019 Medicaid [id number] 2018 Private Health Insurance [id number] 2018 Private Health Insurance [facility] xxxxxxxxx 2018-Present [phone] [address] [place] [address] xxxxxxxxx [id number] 1957 Unknown [id number]. 668 1957 Unknown [id number]. 668 Private Health Insurance Unknown [id number]. 462 Unknown [id number]. 462 Unknown [id number]. 462 Unknown [id number] 2.16840.1.113698.3.579.2. 462 Unknown [id number] [id number]. 462 Unknown [id number] [id number]. 462 Unknown [id number] [id number]. 462 Unknown [id number] [id number]. 462 Unknown [id number] [id number]. 462 Unknown [id number] 2..840.1.371068.3.579.2. 462 Unknown [id number] 2.840.1.754715.3.579.2. 462 Unknown [id number] 2.840.1.586055.3.579.2. 462 Unknown [id number]. 462 Unknown [id number] 2.840.1.462590.3.579.2. 462 Unknown [id number] 2.840.1.216067.3.579.2. 462 Unknown [id number] 2.840.1.466839.3.579.2. 462 Unknown [id number] 2.840.1.591701.3.579.2. 462 Unknown [id number] 2.840.1.859679.3.579.2. 462 Unknown [id number] 2.840.1.142201.3.579.2. 462 Unknown [id number] .840.1.318258.3.579.2. 462 Unknown [id number] 2.840.1.899337.3.579.2. 462 Unknown [id number] 2.840.1.402997.3.579.2. 462 Unknown [id number] 2.840.1.985403.3.579.2. 462 Unknown [id number] 2.840.1.317818.3.579.2. 462 Unknown [id number] 2.840.1.810520.3.579.2. 462 Unknown [id number] 2.840.1.012712.3.579.2. 462 Unknown [id number] 2.840.1.440169.3.579.2. 462 Unknown [id number] 2.16.840.1.000424.3.579.2. 462 Unknown [id number] 2.16.840.1.264131.3.579.2. 462 Unknown [id number] 2.16.840.1.803656.3.579.2. 462 Unknown [id number] 2.16.840.1.207744.3.579.2. 462 Unknown [id number] 2.840.1.431315.3.579.2. 462 Unknown [id number] 2.840.1.344057.3.579.2. 462 Unknown [id number] 2.840.1.571290.3.579.2. 462 Unknown [id number] 2.840.1.745476.3.579.2. 462 Unknown [id number] 2.840.1.554063.3.579.2. 462 Unknown [id number] 2.840.1.618567.3.579.2. 462 Unknown [id number] 2.840.1.008670.3.579.2. 462 Unknown [id number] 2.840.1.074553.3.579.2. 462 Unknown [id number] 2.840.1.012662.3.579.2. 462 Unknown [id number] 2.840.1.694543.3.579.2. 462 Unknown [id number] 2.840.1.029199.3.579.2. 462 Unknown [id number] 2.840.1.289575.3.579.2. 462 Unknown [id number] 2.840.1.154434.3.579.2. 462 Unknown [id number] 2.16840.1.002374.3.579.2. 462 Unknown [id number] 2.840.1.259018.3.579.2. 462 Unknown [id number] 2.16.840.1.933501.3.579.2. 462 Unknown [id number] 2.16.840.1.278489.3.579.2. 462 Unknown [id number] 2.16.840.1.444410.3.579.2. 462 Unknown [id number] 2.16.840.1.582609.3.579.2. 462 Unknown [id number] 2.16.840.1.555293.3.579.2. 462 Unknown [id number] 2.16.840.1.591363.3.579.2. 462 Unknown [id number] 2.16.840.1.116777.3.579.2. 462 Unknown [id number] 2.16.840.1.682897.3.579.2. 462 Unknown [id number] 2.16.840.1.566515.3.579.2. 462 Unknown [id number] 2.16.840.1.417702.3.579.2. 462 Unknown [id number] 2.16.840.1.183624.3.579.2. 462 Unknown [id number] 2.16.840.1.312536.3.579.2. 462 Unknown [id number] 2.16.840.1.729637.3.579.2. 462 Social History Date Type Detail Facility Tobacco smoking status WAIS Unknown if ever smoked [facility] Work Phone: Start: 1955 Sex Assigned At Not on file [facility] Work Phone: Start: 11-05-2018 End: 06-26-2020 Tobacco smoking status WAIS Former smoker [facility] Work Phone: End: 02-06-2016 History of tobacco use Current smoker [facility] Work Phone: End: 02-06-2016 History of tobacco use Cigar Smoker [facility] Work Phone: Start: 02-05-2018 End: 06-26-2020 Tobacco use and exposure Never used [email or web address] Work Phone: Start: 06-26-2020 End: 05-20-2022 Alcohol intake Current drinker of alcohol (finding) [email or web address] Work Phone: Start: 07-08-2018 Alcohol Comment 2 times per wo rk, occasionally liquor [email or web address] Work Phone: Start: 05-10-2022 End: 05-20-2022 Exposure to SARS-CoV-2 (event) Not sure [email or web address] Work Phone: Start: 09-22-2020 End: 05-20-2022 Alcohol intake [facility] Start: 1955 Sex Assigned At Male [facility] End: 02-06-2016 History of tobacco use Cigarette Smoker [facility] Start: 05-20-2022 End: 10-02-2023 Tobacco use panel [facility] How often to you have a drink containing alcohol? Never [facility] How many standard drinks containing alcohol do you have on a typical day? Patient does not drink [facility] Start: 11-29-2021 End: 08-16-2024 Sex Male (finding) [facility] Tobacco smoking status NHIS Unknown if ever smoked [facility] Work Phone: NEGATED: Highlighted rowStart: 05-22-2019 End: 05-22-2019 Alcohol use Alcohol use [facility] Work Phone: NEGATED: Highlighted rowStart: 05-22-2019 End: 05-22-2019 Assertion Current some day smoker [facility] Work Phone: NEGATED: Highlighted rowStart: 05-22-2019 End: 05-22-2019 Details of drug misuse behavior Details of drug misuse behavior [facility] Work Phone: NEGATED: Highlighted rowStart: 05-22-2019 End: 05-22-2019 Tobacco use and exposure Tobacco use and exposure [facility] Work Phone: Clinical Notes 03-18-2021 to 05-03-2024 Telephone Encounter - Shayylenore Russo Rodrigo - 05/03/2024 5:29 PM ESTTelephone Encounter - Anniayuly Russo Rodrigo - 05/03/2024 5:29 PM ZACHARY Baptiste - 11/22/2023 11:30 AM EDTDischarge Instr - CHRIS Note Date & Type Note Facility 05-03-2024 Telephone encounter Note Gissel is calling to let Dr. Burgos know that the medication he prescribed he not certified, she is going to fax the information to the office. [phone] [facility] 05-03-2024 Miscellaneous Notes Gissel is calling to let Dr. Burgos know that the medication he prescribed he not certified, she is going to fax the information to the office. [phone] documented in this encounter [facility] 11-22-2023 History of Presen t illness Narrative Images from the original note were not included. Speech-Language Pathology SPEECH LANGUAGE PATHOLOGY [facility] Modified Barium Swallow Study Patient [...] despite effort. 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 Frequency: Per treating SET OFF PRESS OPERATOR Barriers: large osteophytes, bridging with anterior [...] Prior MBSS?: No, unable to locate in [facility] Current Diet: Puree diet with ?liquid (no information from [employer]) Textures tested: - thin liquid, (cup edge) - mildly thick liquid, (cup edge) - puree, (teaspoon) Patient position: lateral Past Medical History: Past Medical History: Diagnosis Date TREVER (acute kidney injury) ([facility]) ([facility]) Alcohol abuse 07/08/2018 Anxiety C1 spinal cord injury ([facility]) ([facility]) Depression Fall 06/2018 Schizophrenia ([facility]) Past Surgical History: Past Surgical History: Procedure Laterality Date CERVICAL FUSION 07/09/2014 C2-6 cervical fusion GASTROSTOMY TUBE PLACEMENT 07/13/2018 TRACHEOSTOMY 07/13/2018 Admission Diagnosis: Patient Active Problem List Diagnosis Date Noted Respiratory syncytial virus (RSV) 03/22/2021 Hypoxia 03/19/2021 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) ([facility]) 08/16/2018 Chronic latent schizophrenia ([facility]) 08/15/2018 Prolonged Q-T interval on ECG 08/15/2018 Abdominal wall abscess 08/15/2018 Central cord syndrome ([facility]) ([facility]) 08/15/2018 Respiratory failure after trauma ([facility]) 08/15/2018 Pressure ulcer of sacral region, stage 2 ([facility]) 08/09/2018 Urinary retention 07/28/2018 Acute respiratory failure with hypoxia ([facility]) 07/26/2018 Mild bibasilar atelectasis 07/26/2018 Hospital-acquired pneumonia 07/26/2018 Bilateral pleural effusion 07/26/2018 Ileus ([facility]) ([facility]) 07/23/2018 TREVER (acute kidney injury) ([facility]) 07/23/2018 Hypokalemia 07/21/2018 Vertebral artery occlusion, bilateral 07/11/2018 Vitamin D insufficiency 07/10/2018 Alcohol abuse 07/08/2018 Closed wedge compression fracture of first thoracic vertebra ([facility]) 07/08/2018 Traumatic nondisp spondylolisthesis of C3 vertebra with closed fx, initial encounter ([facility]) 07/08/2018 Closed fracture dislocation of cervical spine ([facility]) 07/08/2018 Pain: Pt denies any current pain. Reason for current admission: Pt with h/o of PEG and trach from 2019. Pt is currently decannulated. 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 Noted very large connective [...] able to eat by mouth. Therapy Time SET OFF PRESS OPERATOR Individual Minutes Time In: 1150 Time Out: 1215 Minutes: 25 ZACHARY Sun documented in this encounter [facility] 10-02-2023 Emergency department Note [facility] at bedside at this time Mami Lantigua RN 10/02/23 1427 [facility] 10-02-2023 Emergency department Note [facility] at bedside at this time Mami Lantigua RN 10/02/23 1429 This RN gave report to Marnie at [facility] at this time Mami Lantigua RN 10/02/23 6721 This RN went to evaluate patient, was on 2L o2 and does not wear at baseline, plan is dc, this RN turned o2 off to trial patient, spo2 monitor on Mami Lantigua RN 10/02/[address] cart Eloisa Alfaro RN 10/02/23 1043 Emergency Department Encounter [facility] ED Patient: Kathya Hooper : 1955 Date [...] are mis-transcribed.) Fei Farooq MD Acute Care [facility] Fei Farooq MD 10/02/23 6122 Pt was brought in via [facility] from [facility] for Left sided facial droop. Per EMS nurse is new and does not know patient very well but he is A&O x 2 at baseline. Per EMS the nurse states it was 20 mins ago. Contacted nurse that was caring for him and she states that was the first time she has seen him for that day, shift commander did not report any problems. EMS states [...] schizophrenia. BS 131. documented in this encounter [facility] 10-02-2023 Emergency department Note This RN gave report to Marnie at [facility] at this time Mami Lantigua RN 10/02/23 1353 [facility] 10-02-2023 Emergency department Note This RN went to evaluate patient, was on 2L o2 and does not wear at baseline, plan is dc, this RN turned o2 off to trial patient, spo2 monitor on Mami Lantigua RN 10/02/23 1325 [facility] 10-02-2023 Emergency department Note Pt to ct via cart Eloisa Alfaro RN 10/02/23 1043 [facility] 10-02-2023 Emergency department Triage note Pt was brought in via [facility] from [facility] for Left sided facial droop. Per EMS nurse is new and does not know patient very well but he is A&O x 2 at baseline. Per EMS the nurse states it was 20 mins ago. Contacted nurse that was caring for him and she states that was the first time she has seen him for that day, shift commander did not report any problems. EMS states [...] the facility. Hx of schizophrenia. BS 131. T [facility] 10-02-2023 Physician Emergency department Note Emergency Department Encounter [facility] ED Patient: Kathya Hooper : 1955 Date [...] [employer] Fei Farooq MD 10/02/23 1129 [employer] Work Phone: 05-20-2022 Emergency department Note Report called to long term. Copy of Xray report sent with discharge packet Gary Ghosh RN 05/20/222007 [employer] 05-20-2022 Emergency department Note Report called to long term. Copy of Xray report sent with discharge packet Gary Ghosh RN 05/20/222007 Emergency Department Encounter [facility] ED Patient: Kathya Hooper : 1955 Date of Evaluation: 05/20/2022 ED Supervising Physician: Abelardo Rios DO I independently examined and evaluated Kathya Hooper. This will serve as my Supervisory note as the waste disposal plant operator of record and shared attestation. I did perform a substantive portion of the visit including all aspects of the Medical Decision Making. I wore appropriate PPE for the entirety of this encounter. In brief, Kathya Hooper is a 67 y.o. male that presents to the emergency department after his G-tube fell out today at the long term. Upon inspection of the G-tube, it appears [...] tube which fell out today at the long term. Tube was easily replaced in the emergency room. Will order KUB with dye study to confirm placement and discharge back to the long term. X-ray confirms due to position within the [...] for clarification.) Abelardo Rios DO Acute Care [facility] Abelardo Rios DO 05/20/222014 documented in this encounter [facility] 05-20-2022 Miscellaneous Notes Associated Order(s): Feeding Tube Replacement Procedure Feeding Tube Replacement Performed by: Dejah Hazel DO Authorized by: Abelardo Rios DO Consent: Consent obtained: Verbal Consent given by: Patient Crapo protocol: Patient identity confirmed: Verbally with patient [...] DO Resident 05/20/221931 documented in this encounter [employer] 05-20-2022 Note Associated Order(s): Feeding Tube Replacement Procedure Feeding Tube Replacement Performed by: Dejah Hazel DO Authorized by: Abelardo Rios DO Consent: Consent obtained: Verbal Consent given by: Patient Crapo protocol: Patient identity confirmed: Verbally with patient [...] Procedure completion: Tolerated well, no immediate complications DO Brandon Otoole 05/20/221931 [employer] Phone: 05-20-2022 Note Associated Order(s): Feeding Tube Replacement Procedure Feeding Tube Replacement Performed by: Dejah Hazel DO Authorized by: Abelardo Rios DO Consent: Consent obtained: Verbal Consent given by: Patient Crapo protocol: Patient identity confirmed: Verbally with patient [...] immediate complications Dejah Hazel DO Resident 05/20/221931 [employer] Phone: 05-20-2022 Physician Emergency department Note Emergency Department Encounter [facility] ED Patient: Kathya Hooper : 1955 Date of Evaluation: 05/20/2022 ED Supervising Physician: Abelardo Rios DO I independently examined and evaluated Kathya Hooper. This will serve as my Supervisory note as the waste disposal plant operator of record and shared attestation. I did perform a substantive portion of the visit including all aspects of the Medical Decision Making. I wore appropriate PPE for the entirety of this encounter. In brief, Kathya Hooper is a 67 y.o. male that presents to the emergency department after his G-tube fell out today at the long term. Upon inspection of the G-tube, it appears [...] tube which fell out today at the long term. Tube was easily replaced in the emergency room. Will order KUB with dye study to confirm placement and discharge back to the long term. X-ray confirms due to position within the [...] [employer] Abelardo Rios DO 05/20/222014 [employer] Work Phone: 03-24-2021 Note Hospitalist Discharg e Summary [...] Pneumonia. Treated with antibiotics. He resides in [facility]. He was stablized and discharged Diet NPO [...] Result Date: 03/18/2021 [id number] Tomography ACCESSION EXAM DATE/TIME PROCEDURE ORDERING PROVIDER [id number] 03/18/2021 16:26 EST CTA Head/Neck w/ + w/o [id number] -alyson CASTRO CPT code 06311 95756 Q9967 Reason For Exam (CTA Head/Neck w/ + w/o contrast) AMS, dysphasia and ?aphasia possibly since yesterday- very poor historian from long term w/ unclear prior deficits - here w/ [...] airway at the (more content not included)... [facility] 03-24-2021 Hospital course Narrative Hospitalist Discharge [...] Pneumonia. Treated with antibiotics. He resides in [facility]. He was stablized and discharged Diet NPO [...] Result Date: 03/18/2021 [id number] Computed Tomography ACCESSION EXAM DATE/TIME PROCEDURE ORDERING PROVIDER [id number] 03/18/2021 16:26 EST CTA Head/Neck w/ + w/o [id number] alyson ARCHIBALD CPT code 68117 25809 Q9967 Reason For Exam (CTA Head/Neck w/ + w/o contrast) AMS, dysphasia and ?aphasia possibly since yesterday- very poor historian from long term w/ unclear prior deficits - here w/ [...] Tomography ACCESSION EXAM DATE/TIME PROCEDURE ORDERING PROVIDER [id number] 03/18/2021 16:27 EST CTA Chest w/ + w/o 781810 -CASTRO, Contrast BOO CPT code 48927 Q9967 Reason For Exam (CTA Chest w/ + w/o Contrast) pulmonary embolus Report CTA chest with and without contrast History: chest pain Protocol: 1 mm images after IV contrast, 3D rendering performed by va on a separate workstation No evidence of [...] Radiology ACCESSION EXAM DATE/TIME PROCEDURE ORDERING PROVIDER [id number] 03/19/2021 17:10 EST CR Chest Portable 756128 -BRADY DESAI CPT code 22090 Reason For Exam (CR Chest Portable) hypoxia [...] Result Date: 03/18/2021 Patient Name: KATHYA HOOPER [facility]#: [id number] Diagnostic Radiology ACCESSION EXAM DATE/TIME PROCEDURE ORDERING PROVIDER [id number] 03/18/2021 15:30 EST CR Chest Portable [id number] -BOO CASTRO CPT code 44405 Reason For Exam (CR Chest Portable) sob, [...] on file. Discharging Nurse: Discharging Hospital Unit/Room#: 562/2044 Discharging Unit Phone Number: Emergency Contact: Extended Emergency Contact Information Primary Emergency Contact: Jason Hooper [facility] Relation: Parent Past Surgical History: Past Surgical History: Procedure Laterality Date CERVICAL FUSION 07/09/2014 C2-6 cervical fusion GASTROSTOMY TUBE PLACEMENT 07/13/2018 TRACHEOSTOMY 07/13/2018 Immunization History: Immunization History Administered Date(s) Administered Pneumococcal Polysaccharide ([id number]) 01/10/2017 Tdap (Boostrix, Adacel) 01/10/2017 Active Problems: Patient Active Problem List Diagnosis Code Closed fracture dislocation of cervical spine ([facility]) S12.9XXA Traumatic nondisp spondylolisthesis of C3 vertebra with closed fx, initial encounter ([facility]) S12.231A Closed wedge compression fracture of first thoracic vertebra ([facility]) S22.010A Central cord syndrome ([facility]) S14.129A Chronic latent schizophrenia ([facility]) F21 Alcohol abuse F10.10 Respiratory failure after trauma ([facility]) J96.90 Vitamin D insufficiency E55.9 Vertebral artery occlusion, 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 Hypokalemia E87.6 Ileus ([facility]) K56.7 TREVER (acute kidney injury) ([facility]) N17.9 Acute respiratory failure with hypoxia ([facility]) J96.01 Hospital-acquired pneumonia J18.9, Y95 Bilateral pleural effusion J90 Mild bibasilar atelectasis J98.11 Urinary retention R33.9 Prolonged Q-T interval on ECG R94.31 Pressure ulcer of sacral region, stage 2 ([facility]) L89.152 Abdominal wall abscess L02.211 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[facility]) K65.4 Hypoxia R09.02 Respiratory syncytial virus (RSV) B97.4 Isolation/Infection: Isolation No Isolation Patient Infection Status Infection Onset Added Last Indicated Last Indicated By Review Planned Expiration Resolved Resolved By None active Resolved COVID-19 (Rule Out) 11/03/19/21 03/19/21 COVID-19, Flu A/B, and RSV Combo [...] (84.3 kg) Mental Status: {IP PT MENTAL STATUS:12225} IV Access: { CHRIS IV ACCESS:961564294} Nursing Mobility/ADLs: Walking {CHP DME ADLs:684882680} Transfer {CHP DME ADLs:120813001} Bathing {CHP DME ADLs:704886477} Dressing {CHP DME ADLs:934547935} Toileting {CHP DME ADLs:595320452} Feeding {CHP DME ADLs:202207729} Quality Control Tester {P DME ADLs:346525837} Med Delivery { CHRIS MED Delivery:667749456} Wound Care Documentation and Therapy: Negative Pressure Wound Therapy Abdomen Left (Active) Number of days: 947 Wound Sacrum Mid (Active) Number of days: Elimination: Continence: Bowel: {YES / NO:} Bladder: {YES / NO:} Urinary Catheter: {Urinary Catheter:780184055} Colostomy/Ileostomy/Ileal Conduit: {YES / NO:} Date of Last BM: No intake or output data in the 24 hours ending 03/24/21 1013 I/O last 3 completed shifts: In: 660 [NG/GT:660] Out: - Safety Concerns: { CHRIS Safety Concerns:255487926} Impairments/Disabilities: { CHRIS Impairments/Disabilities:26785030 3} Nutrition Therapy: Current Nutrition Therapy: { CHRIS Diet List:809676133} Routes of Feeding: {[facility] DME Other Feedings:526580145} Liquids: {[facility] liquid thickness:84069} Daily Fluid Restriction: {[facility] DME Yes amt example:744300336} Last Modified Barium Swallow with Video (Video Swallowing Test): {Done Not Done Date:785906604} Treatments at the Time of Hospital Discharge: Respiratory Treatments: Oxygen Therapy: {Therapy; copd oxygen:71981} Ventilator: {[facility] Vent List:636053367} Rehab Therapies: {THERAPEUTIC INTERVENTION:4155877229} Weight Bearing Status/Restrictions: {[facility] Weight Bearin} Other Medical Equipment (for information only, NOT a DME order): {EQUIPMENT:586668627} Other Treatments: Patient's personal belongings (please select all that are sent with patient): {[facility] DME Belongings:051190719} RN SIGNATURE: {Esignature:467654442} CASE MANAGEMENT/SOCIAL WORK SECTION Inpatient Status Date: Readmission Risk Assessment Score: Readmission Risk Risk of Unplanned Readmission: 25 Discharging to Facility/ Agency Name: [facility] Address: [address] [facility] [address] Dialysis Facility (if applicable) Name: Address: Dialysis Schedule: Phone: Fax: Hand Stripper/Cut Off Man signature: PHYSICIAN SECTION Prognosis: Good Condition at Discharge: Stable Rehab Potential (if transferring to Rehab): Good Recommended Labs or Other Treatments After Discharge: Physician Certification: I certify the above information and transfer of Kathya Hooper is necessary for the continuing treatment of the diagnosis listed and that he requires Alf Facility for greater 30 days. Update Admission [...] loss Fluid Accumulation: No significant fluid accumulation Mixer Diamond Powder Strength: Not Performed Estimated Daily Nutrient Needs: Energy (kcal): 1272-6066 (25-30 kcal/kg IBW); Weight Used for Energy Requirements: [place] (86.2 kg) Protein (g): 86-103 (1.0-1.2 g protein/kg IBW); Weight Used for Protein Requirements: [place] (86.2 kg) Fluid (ml/day): per MD. At [...] on 03/02/21, October weight= 185.5# on 01/29/21) [place] Body Weight: 190 lbs; % [place] Body Weight 97.8 % BMI: 24 Adjusted [...] Skin, Weight Discharge Planning: Enteral Nutrition Contact: *[phone] Images from the original note were not [...] from the original note were not included. [facility] [address] [place] [address] Patient - Kathya Hooper, Age - 66 y.o. - 1955 Room Number - 465/[id number] Consulting - Rafa Michel MD Primary Care Physician - No primary care provider on file. [id number] Date of Admission - 03/19/2021 3:52 PM [...] melatonin, albuterol Labs CBC Recent Labs 03/23/21 0348 WBC 15.1* HGB 12.4* HCT 36.5* MCV 92.0 PLT 211 BMP: Recent Labs 03/21/21 0156 03/21/21 0156 03/23/21 0348 NA 136 < > 142 K 3.4* [...] of bed. Pt thought there was a helicopter specialist in the corner of his room. When pt got his meds he calmed down. Pt now watching tv. Call light within reach. Bed alarm on. Images from the original note were not included. [facility] [address] [place], [place] [id number] Patient - Kathya Hooper, Age - 66 y.o. - 1955 Room Number - 465/4651 Consulting - Rafa Michel MD Primary Care Physician - No primary care provider on file. [id number] Date of Admission - 03/19/2021 3:52 PM Hospital Day - 2 Subjective/Events Past 24 hours/ROS On 6L supplemental oxygen, does not use at [facility]. He reports feeling a little better today. Has a frequent cough and trouble getting up phlegm. All other systems reviewed Objective Vitals Vitals: BP 137/79 Pulse 98 Temp 98.1 F (36.7 C) (Temporal) Resp 20 Ht 6' 2.02 (1.88 m) Wt 185 lb 14.4 oz (84.3 kg) Comment: per Nataly FATIMA (bed scale measurement) on 03/20/2021 SpO2 93% [...] No primary care provider on file. Room#: 465/4656 Patient seen and examined. Laying in bed. [...] last 72 hours. CARDIAC ENZYMES: Recent Labs 03/19/210 03/20/21 0023 TROPONINI 0.017 0.037* Procalcitonin: Lab [...] 66 y.o. - 1955 Room Number - 465/4393 N - [id number] Date of Admission - 03/19/2021 3:52 PM [...] Date 03/21/21 0000 - 03/21/21 2359 Shift [id number] 24 Hour Total INTAKE NG/GT(mL/kg) 542(6.4) 542(6.4) [...] included. Hospitalist Progress Note 03/21/2021 9:41 AM [phone]: Please page me for patient care issues. [phone]: Please page [facility] night Hospitalist for any issues. Subjective: Admit Date: 03/19/2021 PCP: No primary care provider on file. Room#: 465/4659 Interval History: Lethargic, hard to arouse this [...] TREVER, Depression, schizophrenia, C2-6 cervical fusion in 2014 and s/p Trach PEG 07/13/2018. [facility] ED with worsening SOB. Evaluated in [...] loss Fluid Accumulation: No significant fluid accumulation Mixer Diamond Powder Strength: Not Performed Estimated Daily Nutrient Needs: Energy (kcal): 1959-3251 (25-30 kcal/kg IBW); Weight Used for Energy Requirements: [place] (86.2 kg) Protein (g): 86-103 (1.0-1.2 g protein/kg IBW); Weight Used for Protein Requirements: [place] (86.2 kg) Fluid (ml/day): per MD. At facility receivin mL free water daily from EN and flushes; Method Used for Fluid Requirements: Other (Comment) Nutrition Related Findings: Massimo score= 15. No skin breakdown or edema noted. S/p Trach/PEG, per SET OFF PRESS OPERATOR note, does not take any food, [...] on 03/02/21, October weight= 185.5# on 01/29/21) [place] Body Weight: 190 lbs; % [place] Body Weight 97.8 % BMI: 23.9 BMI [...] Nutrition Contact: 2430 Speech Language Pathology Facility/Department: [facility] EVALUATION NAME: Kathya [...] states that she is the only family [phone] Images from the original note were not included. Hospitalist Progress Note 03/20/2021 9:58 AM [phone]: Please page me for patient care issues. [phone]: Please page [facility] night Hospitalist for any issues. Subjective: Admit Date: 03/19/2021 PCP: No primary care provider on file. Room#: 465/4651 Interval History: He continues to have cough [...] Narrative NIF -20 documented in this encounter [facility] Work Phone: 03-18-2021 Hospital DischBoo Damon MD - 03/18/2021 Mr. Hooper was seen at the [facility] emergency department for low oxygen levels. Patient [...] cannot be sent through Care Everywhere.Viral Infections (Belarusian)documented in this encounter [facility] Work Phone: Evaluation note Diagnosis PEG tube malfunction (HCC)- Primary Mechanical complication of gastrostomy documented in this encounter [facility] Work Phone: Evaluation note* Diagnosis Feeding tube dysfunction, initial encounter- Primary documented in this encounter [facility] Work Phone: Evaluation note* Diagnosis Respiratory syncytial virus (RSV)- Primary Hypoxia Hypoxemia [facility] Work Phone: Evaluation note* Diagnosis Respiratory syncytial virus (RSV)- Primary Hypoxia Hypoxemia documented in this encounter [facility] Work Phone: Evaluation note* Diagnosis PEG tube malfunction (HCC)- Primary Mechanical complication of gastrostomy documented in this encounter [facility] Work Phone: Evaluation note* Diagnosis Contusion of right hip, initial encounter- Primary documented in this encounter [facility] Work Phone: Evaluation noteNo assessment information available [facility] Work Phone: Evaluation note* Diagnosis Dyspnea, unspecified type- Primary documented [facility]* Diagnosis Dysphagia, oropharyngeal phase Feeding difficulties Feeding difficulties and mismanagement [facility] Diagnosis Dysphagia, oropharyngeal phase- Primary Feeding difficulties Feeding difficulties and mismanagement Dysphagia, oropharyngeal phase Feeding difficulties Feeding difficulties and mismanagement [facility] Diagnosis Dislodged gastrostomy tube- Primary [facility] Diagnosis Chronic cough Cough [facility] Diagnosis Chronic cough- Primary Cough Chronic cough Cough [facility]* Attachments The following attachments cannot be sent through Care Everywhere. * PEG (Percutaneous Endoscopic Gastrostomy): Post-op (Bel[place]ian) documented in this [facility] Work Phone: Hospital Discharge instructions* Attachments The following attachments cannot be sent through Care Everywhere. * Feeding Tube: General Info (Belarusian) documented in this [facility] Work Phone: Hospital Discharge instructions* Instructions* Mary Cochran PA-C - 05/15/2021 Please return to the ED if you have any new or worsening symptoms. documented in this [facility] Work Phone: Hospital Discharge instructions* Attachments The following attachments cannot be sent through Care Everywhere. * Hip Pain (Belarusian) * Contusion ([place]ian) documented in this [facility] Work Phone: Hospital Discharge instructions* Attachments The following attachments cannot be sent through Care Everywhere. * Shortness of Breath (Dyspnea) Discharge Instructions ([place]ian) [facility] Attachments The following attachments cannot be sent through Care Everywhere. * How to Care for Your Gastrostomy Tube ([place]ian) [facility]No reason for [facility] Work Phone: Reason for visit Narrative* Imaging (Routine) - Closed Specialty Diagnoses / Procedures Referred By Contac t Referred To Contact Radiology Diagnoses Chronic cough Procedures CT chest wo IV contrast Rashaad Smith, MIHIR - [employer] WORK[employer] [address] [address] Phone: tel: fax: Referral ID Status Reason Start Date Expiration Date Visits Re quested Visits Authorized [id number] Closed 06/12/2024 06/12/2025 1 1 [facility] Summary Purpose Family History No Family History Records FoundNo Family History Records FoundThere may be information available, but it has not been provided by the sender.No Family History Records FoundNo Family History Records FoundNo Family History Records FoundNo Family History Records Found Advance Directives No Advanced Directives Records FoundDocuments on File Type Date Recorded 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 ACP-Advance Directive ACP-Advance Directive 08/07/2018 1:53 PM ACP-Power of Manager Servicing Latest Code Status on File Code Status Date Activated Date Inactivated Comments Full Code 08/15/2018 8:27 PM 08/22/2018 4:31 PM Full Code 08/15/2018 8:12 PM 08/15/2018 8:27 PM Full Code 07/08/2018 8:28 PM 08/01/2018 2:39 PM Documents on File Type Date Recorded 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 ACP-Advance Directive ACP-Power of Manager Servicing ACP-Advance Directive 08/07/2018 1:53 PM Latest Code Status on File Code Status Date Activated Date Inactivated Comments Full Code 03/20/2021 12:17 AM Full Code 08/15/2018 8:27 PM 08/22/2018 4:31 PM Documents on File Type Date Recorded 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 ACP-Advance Directive ACP-Power of Manager Servicing ACP-Advance Directive 03/26/2021 9:48 AM ACP-Advance Directive 08/07/2018 1:53 PM Latest Code Status on File Code Status Date Activated Date Inactivated Comments Full Code 03/20/2021 12:17 AM 03/24/2021 3:23 PM Documents on File Type Date Recorded 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 Advance Directives and Livin g Will Advance Directives and Livin g Will 08/07/2018 1:53 PM Power of Manager Servicing Documents on File Type Date Recorded 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 * Feeding Tube: General Info ([place]ian) documented in this encounter Assessments Diagnosis PEG [...] Complaint and Reason for Visit Chief Complaint MCC LABWORK MCC LAB WORK MCC LABWORK MCC LABWORK MCC LABWORK MCC LAB WORK MCC LABWORK MCC LABWORK MCC LABWORK MCC LABWORK MCC LABWORK MCC LAB WORK MCC LABWORK NURING HOME LABWORK MCC LABWORK MCC LAB WORK MCC LABWORK Chief Complaint MCC LABWORK MCC LABWORK MCC LABWORK MCC LAB WORK MCC LABWORK NURING HOME LABWORK MCC LABWORK MCC LAB WORK MCC LABWORK MCC LABWORK MCC LAB WORK MCC LAB WORK MCC BLOOD WORK MCC LABWORK MCC LAB WORK Chief Complaint MCC LABWORK MCC LABWORK MCC LAB WORK MCC LABWORK NURING HOME LABWORK MCC LABWORK MCC LAB WORK MCC LABWORK MCC LABWORK MCC LAB WORK MCC LAB WORK MCC BLOOD WORK MCC LABWORK LABWORK LABWORK MCC LAB WORK Chief Complaint MCC LABWORK MCC LAB WORK MCC LABWORK NURING HOME LABWORK MCC LABWORK MCC LAB WORK MCC LABWORK MCC LABWORK MCC LAB WORK MCC LAB WORK MCC BLOOD WORK MCC LABWORK LABWORK LABWORK MCC LAB WORK Chief Complaint MCC LAB WOR K MCC LABWORK NURING HOME LABWORK MCC LABWORK MCC LAB WORK MCC LABWORK MCC LABWORK MCC LAB WORK MCC LAB WORK MCC BLOOD WORK MCC LABWORK LABWORK LABWORK MCC LAB WORK Chief Complaint MCC LAB WOR K MCC LABWORK NURING HOME LABWORK MCC LABWORK MCC LAB WORK MCC LABWORK MCC LABWORK MCC LAB WORK MCC LAB WORK MCC BLOOD WORK MCC LABWORK LABWORK LABWORK MCC LAB WORK LABWORK MCC LABWORK Chief Complaint MCC LABWORK NURING HOME LABWORK MCC LABWORK MCC LAB WORK MCC LABWORK MCC LABWORK MCC LAB WORK MCC LAB WORK MCC BLOOD WORK MCC LABWORK LABWORK LABWORK MCC LAB WORK LABWORK MCC LABWORK MCC LAB WORK Chief Complaint MCC BLOOD W ORK MCC LABWORK MCC LABWORK LABWORK LABWORK MCC LAB WORK LABWORK MCC LABWORK MCC LAB WORK LABWORK MCC LAB WORK MCC LAB WORK LABWORK MCC LAB WORK Chief Complaint MCC BLOOD W ORK MCC LABWORK MCC LABWORK LABWORK LABWORK MCC LAB WORK LABWORK MCC LABWORK MCC LAB WORK LABWORK MCC LAB WORK MCC LAB WORK LABWORK MCC LAB WORK LABWORK Chief Complaint LABWORK LABWORK MCC LAB WORK LABWORK MCC LABWORK MCC LAB WORK LABWORK MCC LAB WORK MCC LAB WORK LABWORK MCC LAB WORK LABWORK MCC LAB WORK Chief Complaint LABWORK MCC LAB WORK LABWORK MCC LABWORK MCC LAB WORK LABWORK MCC LAB WORK MCC LAB WORK LABWORK MCC LAB WORK LABWORK MCC LAB WORK MCC LABWORK Chief Complaint LABWORK MCC LABWORK MCC LAB WORK LABWORK MCC LAB WORK MCC LAB WORK LABWORK MCC LAB WORK LABWORK MCC LAB WORK MCC LABWORK MCC LABWORK LABWORK MCC LAB WORK Chief Complaint MCC LAB WOR K LABWORK MCC LAB WORK MCC LAB WORK LABWORK MCC LAB WORK LABWORK MCC LAB WORK MCC LABWORK MCC LABWORK LABWORK MCC LAB WORK MCC LAB WORK Chief Complaint MCC LAB WOR K MCC LAB WORK LABWORK MCC LAB WORK LABWORK MCC LAB WORK MCC LABWORK MCC LABWORK LABWORK MCC LAB WORK MCC LAB WORK LABWORK MCC LAB WORK Chief Complaint MCC LAB WOR K LABWORK MCC LAB WORK LABWORK MCC LAB WORK MCC LABWORK MCC LABWORK LABWORK MCC LAB WORK MCC LAB WORK LABWORK MCC LAB WORK MCC LAB WORK Chief Complaint MCC LAB WOR K LABWORK MCC LAB WORK MCC LABWORK MCC LABWORK LABWORK MCC LAB WORK MCC LAB WORK LABWORK MCC LAB WORK LABWORK MCC LAB WORK MCC LAB WORK MCC LABWORK MCC LABWORK Chief Complaint LABWORK MCC LAB WORK MCC LABWORK MCC LABWORK LABWORK MCC LAB WORK MCC LAB WORK LABWORK MCC LAB WORK LABWORK MCC LAB WORK MCC LAB WORK MCC LABWORK LABWORK MCC LABWORK Chief Complaint LABWORK MCC LAB WORK MCC LAB WORK LABWORK MCC LAB WORK LABWORK MCC LAB WORK MCC LAB WORK MCC LABWORK LABWORK MCC LABWORK MCC LAB WORK Chief Complaint MCC LAB WOR K LABWORK MCC LAB WORK MCC LAB WORK MCC LABWORK LABWORK MCC LABWORK MCC LAB WORK LABWORK LABWORK LABWORK LABWORK MCC LABWORK MCC LAB WORK LABWORK LABWORK Chief Complaint LABWORK MCC LAB WORK MCC LAB WORK MCC LABWORK LABWORK MCC LABWORK MCC LAB WORK LABWORK LABWORK LABWORK LABWORK MCC LABWORK MCC LAB WORK LABWORK LABWORK MCC LABWORK Chief Complaint MCC LAB WOR K MCC LAB WORK MCC LABWORK LABWORK MCC LABWORK MCC LAB WORK LABWORK LABWORK LABWORK LABWORK MCC LABWORK MCC LAB WORK LABWORK LABWORK MCC LABWORK MCC LAB WORK Chief Complaint MCC LABWORK LABWORK MCC LABWORK MCC LAB WORK LABWORK LABWORK LABWORK LABWORK MCC LABWORK MCC LAB WORK LABWORK LABWORK MCC LABWORK MCC LAB WORK MCC LABWORK MCC LAB WORK Chief Complaint LABWORK MCC LABWORK MCC LAB WORK LABWORK LABWORK LABWORK LABWORK MCC LABWORK MCC LAB WORK LABWORK LABWORK MCC LABWORK MCC LAB WORK MCC LABWORK LABWORK MCC LAB WORK Chief Complaint LABWORK LABWORK LABWORK LABWORK MCC LABWORK MCC LAB WORK LABWORK LABWORK MCC LABWORK MCC LAB WORK MCC LABWORK LABWORK MCC LAB WORK LABWORK MCC LABWORK Chief Complaint LABWORK MCC LABWORK MCC LAB WORK LABWORK LABWORK MCC LABWORK MCC LAB WORK MCC LABWORK LABWORK MCC LAB WORK LABWORK MCC LABWORK LABWORK LABWORK Chief Complaint MCC LABWORK MCC LAB WORK LABWORK LABWORK MCC LABWORK MCC LAB WORK MCC LABWORK LABWORK MCC LAB WORK LABWORK MCC LABWORK LABWORK LABWORK LABWORK MCC LAB WORK MCC LAB WORK MCC LABWORK Chief Complaint MCC LABWORK MCC LAB WORK LABWORK LABWORK MCC LABWORK MCC LAB WORK MCC LABWORK LABWORK MCC LAB WORK LABWORK MCC LABWORK LABWORK LABWORK LABWORK MCC LAB WORK MCC LAB WORK MCC LABWORK MCC LABWORK Chief Complaint LABWORK LABWORK MCC LABWORK MCC LAB WORK MCC LABWORK LABWORK MCC LAB WORK LABWORK MCC LABWORK LABWORK LABWORK LABWORK MCC LAB WORK MCC LAB WORK MCC LABWORK MCC LABWORK MCC LAB WORK LABWORK Chief Complaint MCC LABWORK MCC LAB WORK MCC LABWORK LABWORK MCC LAB WORK LABWORK MCC LABWORK LABWORK LABWORK LABWORK MCC LAB WORK MCC LAB WORK MCC LABWORK MCC LABWORK MCC LAB WORK LABWORK MCC LABWORK Chief Complaint MCC LABWORK LABWORK MCC LAB WORK LABWORK MCC LABWORK LABWORK LABWORK LABWORK MCC LAB WORK MCC LAB WORK MCC LABWORK MCC LABWORK MCC LAB WORK LABWORK MCC LABWORK MCC LAB WORK Chief Complaint LABWORK MCC LABWORK LABWORK LABWORK LABWORK MCC LAB WORK MCC LAB WORK MCC LABWORK MCC LABWORK MCC LAB WORK LABWORK MCC LABWORK MCC LAB WORK MCC LABWORK MCC LAB WORK Chief Complaint LABWORK MCC LABWORK MCC LAB WORK MCC LABWORK MCC LAB WORK MCC LABWORK MCC LABWORK MCC LABWORK MCC LABWORK MCC LAB WORK LABWORK LABWORK MCC LABWORK Chief Complaint MCC LABWORK MCC LAB WORK MCC LABWORK MCC LABWORK MCC LABWORK MCC LABWORK MCC LAB WORK LABWORK LABWORK MCC LABWORK LABWORK MCC LAB WORK MCC LAB WORK Chief Complaint MCC LABWORK MCC LABWORK MCC LABWORK MCC LABWORK MCC LAB WORK LABWORK LABWORK MCC LABWORK LABWORK MCC LAB WORK MCC LAB WORK MCC LABWORK MCC LABWORK MCC LAB WORK MCC LAB WORK Chief Complaint MCC LABWORK MCC LABWORK MCC LABWORK MCC LAB WORK LABWORK LABWORK MCC LABWORK LABWORK MCC LAB WORK MCC LAB WORK MCC LABWORK MCC LABWORK MCC LAB WORK MCC LAB WORK Chief Complaint MCC LABWORK MCC LABWORK MCC LABWORK MCC LAB WORK LABWORK LABWORK MCC LABWORK LABWORK MCC LAB WORK MCC LAB WORK MCC LABWORK MCC LABWORK MCC LAB WORK MCC LAB WORK MCC LABWORK LABWORK Chief Complaint MCC LAB WOR K LABWORK LABWORK MCC LABWORK LABWORK MCC LAB WORK MCC LAB WORK MCC LABWORK MCC LABWORK MCC LAB WORK MCC LAB WORK MCC LABWORK LABWORK MCC LAB WORK LABWORK Chief Complaint MCC LAB WOR K LABWORK LABWORK MCC LABWORK LABWORK MCC LAB WORK MCC LAB WORK MCC LABWORK MCC LABWORK MCC LAB WORK MCC LAB WORK MCC LABWORK LABWORK MCC LAB WORK LABWORK MCC LABWORK MCC LAB WORK Chief Complaint LABWORK LABWORK MCC LABWORK LABWORK MCC LAB WORK MCC LAB WORK MCC LABWORK MCC LABWORK MCC LAB WORK MCC LAB WORK MCC LABWORK LABWORK MCC LAB WORK LABWORK MCC LABWORK MCC LAB WORK LABWORK\ Chief Complaint LABWORK MCC LABWORK LABWORK MCC LAB WORK MCC LAB WORK MCC LABWORK MCC LABWORK MCC LAB WORK MCC LAB WORK MCC LABWORK LABWORK MCC LAB WORK LABWORK MCC LABWORK MCC LAB WORK LABWORK\ LABWORK Chief Complaint MCC LAB WOR K MCC LAB WORK MCC LABWORK MCC LABWORK MCC LAB WORK MCC LAB WORK MCC LABWORK LABWORK MCC LAB WORK LABWORK MCC LABWORK MCC LAB WORK LABWORK\ LABWORK MCC LAB WORK LABWORK Chief Complaint MCC LAB WOR K MCC LABWORK MCC LABWORK MCC LAB WORK MCC LAB WORK MCC LABWORK LABWORK MCC LAB WORK LABWORK MCC LABWORK MCC LAB WORK LABWORK\ LABWORK MCC LAB WORK LABWORK LABWORK Chief Complaint MCC LABWORK MCC LABWORK MCC LAB WORK MCC LAB WORK MCC LABWORK LABWORK MCC LAB WORK LABWORK MCC LABWORK MCC LAB WORK LABWORK\ LABWORK MCC LAB WORK LABWORK MCC LABWORK LABWORK Chief Complaint MCC LAB WOR K MCC LABWORK LABWORK MCC LAB WORK LABWORK MCC LABWORK MCC LAB WORK LABWORK\ LABWORK MCC LAB WORK LABWORK MCC LABWORK LABWORK MCC LABWORK MCC LAB WORK LABWORK MCC LAB WORK Chief Complaint MCC LABWORK LABWORK MCC LAB WORK LABWORK MCC LABWORK MCC LAB WORK LABWORK\ LABWORK MCC LAB WORK LABWORK MCC LABWORK LABWORK MCC LABWORK MCC LAB WORK LABWORK MCC LAB WORK LABWORK Chief Complaint MCC LAB WOR K LABWORK MCC LABWORK MCC LAB WORK LABWORK\ LABWORK MCC LAB WORK LABWORK MCC LABWORK LABWORK MCC LABWORK MCC LAB WORK LABWORK MCC LAB WORK LABWORK LABWORK Chief Complaint MCC LAB WOR K LABWORK\ LABWORK MCC LAB WORK LABWORK MCC LABWORK LABWORK MCC LABWORK MCC LAB WORK LABWORK MCC LAB WORK LABWORK LABWORK LABWORK LABWORK LABWORK Chief Complaint LABWORK\ LABWORK MCC LAB WORK LABWORK MCC LABWORK LABWORK MCC LABWORK MCC LAB WORK LABWORK MCC LAB WORK LABWORK LABWORK LABWORK LABWORK LABWORK LABWORK Chief Complaint MCC LAB WOR K LABWORK MCC LABWORK LABWORK MCC LABWORK MCC LAB WORK LABWORK MCC LAB WORK LABWORK LABWORK LABWORK LABWORK LABWORK LABWORK LABWORK Chief Complaint MCC LABWORK LABWORK MCC LABWORK MCC LAB WORK LABWORK MCC LAB WORK LABWORK LABWORK LABWORK LABWORK LABWORK LABWORK LABWORK MCC LAB WORK LABWORK Chief Complaint LABWORK MCC LABWORK MCC LAB WORK LABWORK MCC LAB WORK LABWORK LABWORK LABWORK LABWORK LABWORK LABWORK LABWORK MCC LAB WORK LABWORK LABWORK LABWORK Chief Complaint LABWORK MCC LAB WORK LABWORK LABWORK LABWORK LABWORK LABWORK LABWORK LABWORK MCC LAB WORK LABWORK LABWORK LABWORK MCC LAB WORK MCC LAB WORK Chief Complaint MCC LAB WOR K LABWORK LABWORK LABWORK LABWORK LABWORK LABWORK LABWORK MCC LAB WORK LABWORK LABWORK LABWORK MCC LAB WORK MCC LAB WORK LABWORK Chief Complaint MCC LABWORK MCC LAB WORK MCC LAB WORK MCC LABWORK LABWORK MCC LAB WORK LABWORK MCC LABWORK MCC LAB WORK LABWORK\ LABWORK MCC LAB WORK LABWORK MCC LABWORK LABWORK MCC LABWORK Chief Complaint MCC LABWORK MCC LAB WORK MCC LAB WORK MCC LABWORK LABWORK MCC LAB WORK LABWORK MCC LABWORK MCC LAB WORK LABWORK\ LABWORK MCC LAB WORK LABWORK MCC LABWORK LABWORK MCC LABWORK MCC LAB WORK Chief Complaint Admit Date MCC LAB WORK March 11 4 5:00am MCC LAB WORK March 18 5:00am LABWORK March 25, 2024 5:00am LABWORK April 01, 2024 5 :00am MCC LAB WORK April 08, 2024 5:00am LABWORK April 15, 2024 5:00am LABWORK April 22, 2024 5:00am MCC LAB WORK April 29 5:00am LABWORK May 06, 2024 5: 00am MCC LAB WORK May 13, 2024 4:00am LABWORK May 20, 2024 5 :00am MCC LAB WORK May 27, 2024 5:00am LABWORK June 03, 2024 5 :00am LABWORK June 07, 2024 5 :00am MCC LAB WORK June 10 5:00am LABWORK June 17, 2024 5:00am MCC LAB WORK June 24 5:00am Chief Complaint Admit Date LABWORK April 01, 2024 5 :00am MCC LAB WORK April 08, 2024 5:00am LABWORK April 15, 2024 5:00am LABWORK April 22, 2024 5:00am MCC LAB WORK April 29 5:00am LABWORK May 06, 2024 5: 00am MCC LAB WORK May 13, 2024 4:00am LABWORK May 20, 2024 5 :00am MCC LAB WORK May 27, 2024 5:00am LABWORK June 03, 2024 5 :00am LABWORK June 07, 2024 5 :00am MCC LAB WORK June 10 5:00am LABWORK June 17, 2024 5:00am MCC LAB WORK June 24 5:00am MCC LAB WORK June 27 2:00am MCC LAB WORK July 01, 2024 4: 00am LABWORK July 08, 2024 5:0 0am MCC LAB WORK July 16, 2024 4 :00am Chief Complaint Admit Date MCC LAB WORK April 08, 2024 5:00am LABWORK April 15, 2024 5:00am LABWORK April 22, 2024 5:00am MCC LAB WORK April 29 5:00am LABWORK May 06, 2024 5: 00am MCC LAB WORK May 13, 2024 4:00am LABWORK May 20, 2024 5 :00am MCC LAB WORK May 27, 2024 5:00am LABWORK June 03, 2024 5 :00am LABWORK June 07, 2024 5 :00am MCC LAB WORK June 10 5:00am LABWORK June 17, 2024 5:00am MCC LAB WORK June 24 5:00am MCC LAB WORK June 27 2:00am MCC LAB WORK July 01, 2024 4: 00am LABWORK July 08, 2024 5:0 0am MCC LAB WORK July 15, 2024 5 :00am MCC LAB WORK July 16, 2024 4 :00am Chief Complaint Admit Date LABWORK April 15, 2024 5:00am LABWORK April 22, 2024 5:00am MCC LAB WORK April 29 5:00am LABWORK May 06, 2024 5: 00am MCC LAB WORK May 13, 2024 4:00am LABWORK May 20, 2024 5 :00am MCC LAB WORK May 27, 2024 5:00am LABWORK June 03, 2024 5 :00am LABWORK June 07, 2024 5 :00am MCC LAB WORK June 10 5:00am LABWORK June 17, 2024 5:00am MCC LAB WORK June 24 5:00am MCC LAB WORK June 27 2:00am MCC LAB WORK July 01, 2024 4: 00am LABWORK July 08, 2024 5:0 0am MCC LAB WORK July 15, 2024 5 :00am MCC LAB WORK July 16, 2024 4 :00am MCC LAB WORK July 22, 2024 5 :00am Chief Complaint Admit Date LABWORK April 22, 2024 5:00am MCC LAB WORK April 29 5:00am LABWORK May 06, 2024 5: 00am MCC LAB WORK May 13, 2024 4:00am LABWORK May 20, 2024 5 :00am MCC LAB WORK May 27, 2024 5:00am LABWORK June 03, 2024 5 :00am LABWORK June 07, 2024 5 :00am MCC LAB WORK June 10 5:00am LABWORK June 17, 2024 5:00am MCC LAB WORK June 24 5:00am MCC LAB WORK June 27 2:00am MCC LAB WORK July 01, 2024 4: 00am LABWORK July 08, 2024 5:0 0am MCC LAB WORK July 15, 2024 5 :00am MCC LAB WORK July 16, 2024 4 :00am MCC LAB WORK July 22, 2024 5 :00am LABWORK July 29, 2024 5:0 0am Chief Complaint Admit Date MCC LAB WORK May 13, 2024 4:00am LABWORK May 20, 2024 5 :00am MCC LAB WORK May 27, 2024 5:00am LABWORK June 03, 2024 5 :00am LABWORK June 07, 2024 5 :00am MCC LAB WORK June 10 5:00am LABWORK June 17, 2024 5:00am MCC LAB WORK June 24 5:00am MCC LAB WORK June 27 2:00am MCC LAB WORK July 01, 2024 4: 00am LABWORK July 08, 2024 5:0 0am MCC LAB WORK July 15, 2024 5 :00am MCC LAB WORK July 16, 2024 4 :00am MCC LAB WORK July 22, 2024 5 :00am LABWORK July 29, 2024 5:0 0am MCC LAB WORK August 05, 2024 5: 00am MCC LAB WORK August 12, 2024 5 :00am Chief Complaint Admit Date LABWORK May 20, 2024 5 :00am MCC LAB WORK May 27, 2024 5:00am LABWORK June 03, 2024 5 :00am LABWORK June 07, 2024 5 :00am MCC LAB WORK June 10 5:00am LABWORK June 17, 2024 5:00am MCC LAB WORK June 24 5:00am MCC LAB WORK June 27 2:00am MCC LAB WORK July 01, 2024 4: 00am LABWORK July 08, 2024 5:0 0am MCC LAB WORK July 15, 2024 5 :00am MCC LAB WORK July 16, 2024 4 :00am MCC LAB WORK July 22, 2024 5 :00am LABWORK July 29, 2024 5:0 0am MCC LAB WORK August 05, 2024 5: 00am MCC LAB WORK August 12, 2024 5 :00am LABWORK August 26, 2024 5:0 0am Chief Complaint Admit Date LABWORK June 03, 2024 5 :00am LABWORK June 07, 2024 5 :00am MCC LAB WORK June 10 5:00am LABWORK June 17, 2024 5:00am MCC LAB WORK June 24 5:00am MCC LAB WORK June 27 2:00am MCC LAB WORK July 01, 2024 4: 00am LABWORK July 08, 2024 5:0 0am MCC LAB WORK July 15, 2024 5 :00am MCC LAB WORK July 16, 2024 4 :00am MCC LAB WORK July 22, 2024 5 :00am LABWORK July 29, 2024 5:0 0am MCC LAB WORK August 05, 2024 5: 00am MCC LAB WORK August 12, 2024 5 :00am MCC LAB WORK August 19, 2024 4 :00am MCC LAB WORK August 23, 2024 5 :00am LABWORK August 26, 2024 5:0 0am LABWORK September 09, 2024 5:00a m Chief Complaint Admit Date LABWORK June 07, 2024 5 :00am MCC LAB WORK June 10 5:00am LABWORK June 17, 2024 5:00am MCC LAB WORK June 24 5:00am MCC LAB WORK June 27 2:00am MCC LAB WORK July 01, 2024 4: 00am LABWORK July 08, 2024 5:0 0am MCC LAB WORK July 15, 2024 5 :00am MCC LAB WORK July 16, 2024 4 :00am MCC LAB WORK July 22, 2024 5 :00am LABWORK July 29, 2024 5:0 0am MCC LAB WORK August 05, 2024 5: 00am MCC LAB WORK August 12, 2024 5 :00am MCC LAB WORK August 19, 2024 4 :00am MCC LAB WORK August 23, 2024 5 :00am LABWORK August 26, 2024 5:0 0am [facility] LAB WORK September 02, 2024 4:00 am LABWORK September 09, 2024 5:00a m LABWORK September 11, 2024 5:00a m Additional Source Comments (unrecognized sect ion and content) No Status Records FoundNo Status Records FoundNo Status Records FoundNo Status Records FoundNo Status Records FoundNo Status Records Found INFORMATION SOURCE (unrecogn ized section and content) DATE CREATED AUTHOR 09/04/2018 [facility] DATE CREATED AUTHOR AUTHOR'S ORGANIZ ATION 10/06/2018 [facility] DATE CREATED AUTHOR AUTHOR'S ORGANIZ ATION 03/26/2021 [facility] DATE CREATED AUTHOR AUTHOR'S ORGANIZ ATION 05/21/2021 [facility] DATE CREATED AUTHOR AUTHOR'S ORGANIZ ATION 06/28/2024 [facility] DATE CREATED AUTHOR AUTHOR'S ORGANIZ ATION 10/20/2024 [facility] Source Comments (unrecognize d section and content) In the event this informatio n is protected by the Federal Confidentiality of Alcohol and Drug Abuse Patient Records regulations: The Federal rules restrict any use of the information to criminally investigate or prosecute any alcohol or drug abuse patient.[facility] Reason for Visit (unrecogniz ed section [...] 0914 (Given - Provider: Sandeep Thompson, KUSHAL) atorvastatin (LIPITOR) tablet 40 mg 40 mg, Per NG tube, NIGHTLY, First dose on Mon03/19/21 at 2323 2207 (Given - Provider: Nancy Solorio, KUSHAL) 2148 (Given - Provider: Nancy Solorio RN) 2100 (Due) cefepime (MAXIPIME) 2000 mg IVPB minibag (CANCELED) 2,000 mg, IntraVENous, at 12.5 mL/hr, Administer over 240 Minutes, EVERY 8 HOURS, First dose (after last reorder) on 03/20/21 at 1400, For 14 doses, >> Dose [...] Jovana Armstrong RN)1935 (Stopped - Provider: Nancy Solorio RN)2149 (New Bag - Provider: Nancy Solorio RN) 0200 (Stopped - Provider: Nancy Solorio RN)0640 (New Bag - Provider: Nancy Solorio RN)1040 (Stopped - Provider: Sandeep Thompson RN) cefepime [...] intake. 0754 (Given - Provider: Tra Pearl RN)2206 (Given - Provider: Nancy Solorio RN) 0914 (Given - Provider: Jovana Armstrong RN) cloZAPine (CLOZARIL) tablet 75 mg 75 mg, Per G Tube, 2 TIMES DAILY, First dose (after last modification) on Mon03/23/21 at 2100, Avoid changes in caffeine intake. 2148 (Given - Provider: Nancy Solorio RN) 0914 (Given - Provider: Sandeep Thompson RN)2100 (Due) docusate (COLACE) 50 MG/5ML liquid 100 mg 100 mg, Per NG tube, 2 TIMES DAILY, First dose on Mon03/19/21 at 2323 0754 (Given - Provider: Tra Pearl RN)2205 (Given - Provider: Nancy Solorio, RN) 0921 (Given - Provider: Jovana Armstrong, RN)214 (Given - Provider: Nancy Solorio, RN) 0914 (Given - Provider: Sandeep Thompson, KUSHAL)2100 (Due) enoxaparin (LOVENOX) injection 30 mg 30 mg, SubCUTAneous, 2 TIMES DAILY, First dose on Mon03/19/21 at 2323, Pharmacy to dose if renal insufficiency present. 0753 (Given - Provider: Tra Pearl RN)2207 (Given - Provider: Nancy Solorio, KUSHAL) 0940 (Given - Provider: Jovana Armstrong, KUSHAL)214 (Given - Provider: Nancy Solorio, KUSHAL) 0914 (Given - Provider: Sandeep Thompson, KUSHAL)2100 (Due) finasteride (PROSCAR) tablet 5 mg 5 mg, Oral, DAILY, First dose on 03/20/21 at 0900, Women should not handle crushed [...] 1200 0953 (Given - Provider: Amelie Taylor RCP)1356 (Given - Provider: Amelie Taylor RCP)1648 (Given - Provider: Amelie Taylor RCP)2212 (Given - Provider: Claire Lagos RCP) 0841 (Given - Provider: Ana Cabrera RCP)1213 (Given - Provider: Ana Cabrera RCP)1622 (Given - Provider: Ana Cabrera RCP)2036 (Given - Provider: Perla Loyola RCP) 1020 (Given - Provider: Gabriel Soares RCP)1200 (Due)1600 (Due)2000 (Due) lansoprazole (PREVACID SOLUTAB) disintegrating [...] at 0930 0914 (Given - Provider: Sandeep Thompson RN) risperiDONE (RISPERDAL) tablet 0.5 mg 0.5 mg, Oral, NIGHTLY, First dose (after last modification) on Mon03/22/21 at 2100 2209 (Given - Provider: Nancy Solorio RN) 2150 (Given - Provider: Nancy Solorio RN) 2100 (Due) sodium chloride (Inhalant) 3 % nebulizer solution 4 mL 4 mL, Nebulization, 2 TIMES DAILY, First dose on Mon03/19/21 at 2323 1003 (Given - Provider: Amelie Taylor RCP)2215 (Given - Provider: Claire Lagos RCP) 0841 (Given - Provider: Ana Cabrera RCP)2051 (Given - Provider: Perla Loyola RCP) 1200 (Due - Provider: Gabriel Soares RCP)2100 (Due) sodium chloride flush 0.9 % injection [...] Tra Pearl RN)2206 (Given - Provider: Nancy Solorio, KUSHAL) 1055 (Given - Provider: Jovana Armstrong RN)2150 (Given - Provider: Nancy Solorio, RN) 0918 (Given - Provider: Sandeep Thompson, [...] 0754 (Given - Provider: Tra Pearl RN) 1055 (Given - Provider: Jovana Armstrong RN) 0914 (Given - Provider: Sandeep Thompson, KUSHAL) vancomycin (VANCOCIN) 1,250 mg in dextrose 5 % 250 mL IVPB (CANCELED) 1,250 mg (14.8 mg/kg), IntraVENous, at 125 mL/hr, Administer over 120 Minutes, EVERY 12 HOURS, First dose (after last reorder) on 03/20/21 at 1300 0137 (New Bag - Provider: Francesca Cortez RN)0407 (Stopped - Provider: Francesca Cortez RN) PRN [...] mL/hr, Administer over 1 Hours, Once, On Mon10/02/23 at 1035, For 1 dose 1117 (New Bag - Prov ider: Eloisa Alfaro RN)1217 (Stopped - Provider: Mami Lantigua RN) sodium chloride 0.9% (NS) flush 5-40 mL 5-40 mL, IntraVENous, Every 12 hours, First dose on Mon10/02/23 at 1035, For Line Patency: Peripheral IV [...] Team Status: Inactive Member Role Status Dates Peter Katsaros OLS Attending Provider Active Team Status: Inactive Member [...] Status Dates Renard Burgos Attending Provider Active Chart Snatcher Relationship Specialty Start Date End Date Renard Burgos [address] [place] [phone] PCP - General Internal Medicine 10/16/23 Chart Snatcher Relationship Specialty Start Date End Date Renard Burgos [address] [place] [phone] PCP - General Internal Medicine 10/16/23 Chart Snatcher Relationship Specialty Start Date End Date Renard Burgos [address] [place] [phone] PCP - General Internal Medicine 10/16/23 Chart Snatcher Relationship Specialty Start Date End Date Renard Burgos [address] [place] [phone] PCP - General Internal Medicine 10/16/23 Team [...] Status: Active Member Role Status Dates Renard GARLADN Attending Provider Active Sta rt: July 01, [...] Status: Active Member Role Status Dates Renard GARLADN Attending Provider Active Sta rt: July 29, 2024 Team Status: Inactive Member Role Status Dates Renard GARALND Attending Provider Active Sta rt: July 01, [...] Provider Active Sta rt: September 09, 2024 Chart Snatcher Relationship Specialty Start Date End Date Renard Burgos [address] [place] [phone] PCP - General Internal Medicine 10/16/23 Team Status: Inactive Member Role Status Dates Renard GARLAND Attending Provider Active Sta rt: August 26, 2024 End: August 26, 2024 Team Status: Active Member Role Status Dates Renard GARLAND Attending Provider Active Sta rt: September 11, 2024 Team Status: Inactive Member Role Status Dates Renard GARLAND Attending Provider Active Sta rt: August 19, 2024 End: August 19, 2024 Renard GARLAND Referring Provider Active Sta rt: August [...] September 09, 2024 End: September 09, 2024 Team Status: Active Member Role Status Dates Renard GARLAND Attending Provider Active Sta rt: September 02, 2024 Renard GARLAND Referring Provider Active Sta rt: September 02, 2024 Team Status: Inactive Member Role Status Dates Renard GARLAND Attending Provider Active Sta rt: September 11, 2024 End: September 11, 2024 Team Status: Active Member Role Status Dates Renard GARLAND Attending Provider Active Sta rt: September 30, 2024 Team Status: Inactive Member Role Status Dates Renard GARLAND Attending Provider Active Sta rt: September 02, 2024 End: September 02, 2024 Renard GARLAND Referring Provider Active Sta rt: September 02, 2024 End: September 02, 2024 FOR RECORDS PERTAINING TO PATIENTS WHO [...] BE BASED ON THE PRIMARY CLINICAL RECORDS. [facility] [employer] provides no warranty or guarantee of the accuracy or completeness of information in this document.
[2024-10-21 08:50] LABS: Absolute Lymphocyte Count 2.41 X10^3/uL (0.83-4.51); Absolute Neutrophil Count 5.2 X10^3/uL (2.0-7.7); Basophil# 0.05 X10^3/uL; Basophil% 0.6 % (0-1); Eosinophil# 0.07 X10^3/uL; Eosinophils% 0.8 % (0-5); Hematocrit 38.9 % (40-54); Hemoglobin 12.8 g/dL (13.0-16.5); Lymphocyte # 2.41 X10^3/ul (0.83-4.51); Lymphocyte % 28.2 % (19-41); Mean Corp Hgb Conc 32.9 g/dL (32-36); Mean Corpuscular Hgb 30.1 pg (27.0-32.0); Mean Corpuscular Volume 91.5 fL (80-94); Mean Platelet Vol. 11.2 fl (6.2-12.0); Monocyte# 0.78 X10^3/uL; Monocyte% 9.1 % (0-10); NRBC Flagged by Analyzer 0 % (0-5); Neutrophil % 60.9 % (47-70); Platelet Count 204 K/mm3 (150-450); RBC Distribution Width CV 13.3 % (11.6-14.6); RBC Distribution Width SD 44.5 fl (35.1-43.9); Red Blood Count 4.25 M/mm3 (4.6-6.2); White Blood Count 8.5 K/mm3 (4.4-11.0)
== END | disposition home or self-care (01) ==
LOC: OLS.SANC 04:00
PROVIDERS: Referring Provider Internal Medicine; Visit Provider Internal Medicine
DX: Z79.899 Other long term (current) drug therapy (principal)
CPT/HCPCS: 36415; 85025

== ENCOUNTER → 2024-10-28 | Outpatient (REF) | payer MEDICAID, SELFPAY ==
[2024-10-28 09:01] LABS: Absolute Lymphocyte Count 1.72 X10^3/uL (0.83-4.51); Basophil# 0.05 X10^3/uL; Basophil% 0.7 % (0-1); Eosinophil# 0.09 X10^3/uL; Eosinophils% 1.2 % (0-5); Hematocrit 37.3 % (40-54); Hemoglobin 12.3 g/dL (13.0-16.5); Lymphocyte # 1.72 X10^3/ul (0.83-4.51); Lymphocyte % 22.9 % (19-41); Mean Corpuscular Hgb 30.1 pg (27.0-32.0); Mean Corpuscular Volume 91.4 fL (80-94); Mean Platelet Vol. 11.3 fl (6.2-12.0); Monocyte# 0.61 X10^3/uL; Monocyte% 8.1 % (0-10); NRBC Flagged by Analyzer 0 % (0-5); Neutrophil # 5.04 X10^3/uL (2.7-7.7); Platelet Count 201 K/mm3 (150-450); RBC Distribution Width CV 13.2 % (11.6-14.6); Red Blood Count 4.08 M/mm3 (4.6-6.2); White Blood Count 7.5 K/mm3 (4.4-11.0)
== END | disposition home or self-care (01) ==
LOC: OLS.SANC 05:00
PROVIDERS: Visit Provider Internal Medicine
DX: F20.9 Schizophrenia, unspecified (principal); Z79.899 Other long term (current) drug therapy
CPT/HCPCS: 36415; 85025

== ENCOUNTER → 2024-11-04 | Outpatient (REF) | payer MEDICAID, SELFPAY ==
[2024-11-04 09:13] LABS: Hematocrit 42.8 % (40-54); Hemoglobin 14.0 g/dL (13.0-16.5); Immature Granulocytes Count 0.030 X10^3/uL (0.0-0.0); Mean Corp Hgb Conc 32.7 g/dL (32-36); Mean Corpuscular Volume 92.4 fL (80-94); Mean Platelet Vol. 11.6 fl (6.2-12.0); NRBC Flagged by Analyzer 0 % (0-5); POSITIVE COUNT YES; RBC Distribution Width CV 13.3 % (11.6-14.6); RBC Distribution Width SD 45.0 fl (35.1-43.9); Red Blood Count 4.63 M/mm3 (4.6-6.2); White Blood Count 7.8 K/mm3 (4.4-11.0)
[2024-11-04 10:00] LABS: Differential Indicated SCAN CRITERIA MET
== END | disposition home or self-care (01) ==
LOC: OLS.SANC 04:00
PROVIDERS: Referring Provider Internal Medicine; Visit Provider Internal Medicine
DX: Z79.899 Other long term (current) drug therapy (principal)
CPT/HCPCS: 36415; 85025

== ENCOUNTER → 2024-11-11 | Outpatient (REF) | payer MEDICAID, SELFPAY ==
[2024-11-11 11:53] LABS: Hematocrit 38.6 % (40-54); Hemoglobin 12.6 g/dL (13.0-16.5); Immature Granulocytes Count 0.030 X10^3/uL (0.0-0.0); Mean Corp Hgb Conc 32.6 g/dL (32-36); Mean Corpuscular Volume 91.7 fL (80-94); Mean Platelet Vol. 11.4 fl (6.2-12.0); NRBC Flagged by Analyzer 0 % (0-5); Platelet Count 220 K/mm3 (150-450); RBC Distribution Width CV 13.2 % (11.6-14.6); RBC Distribution Width SD 44.4 fl (35.1-43.9); Red Blood Count 4.21 M/mm3 (4.6-6.2); White Blood Count 8.1 K/mm3 (4.4-11.0)
[2024-11-12 05:34] LABS: Anion Gap 11 (5-15); BUN 11 mg/dL (4-19); BUN/Creat Ratio 18.8 RATIO (10-20); Calcium,Total 8.2 mg/dL (7.6-11.0); Carbon Dioxide 24.9 mmol/L (21.0-32.0); Chloride 104 mmol/L (98-108); Glucose 101 mg/dL (70-99); Potassium 3.9 mmol/L (3.3-5.1)
== END | disposition home or self-care (01) ==
LOC: OLS.SANC 05:00
PROVIDERS: Visit Provider Internal Medicine
DX: F20.9 Schizophrenia, unspecified (principal); N40.0 Benign prostatic hyperplasia without lower urinary tract symptoms; R53.83 Other fatigue; Z79.899 Other long term (current) drug therapy
CPT/HCPCS: 36415; 80048; 85025

== ENCOUNTER → 2024-11-18 05:00 | Outpatient (REF) | payer MEDICAID, SELFPAY ==
--- OUTSIDE RECORDS SUMMARY | 2024-11-18 04:25 | XMS RPT_ITS | CCD ---
Author Organization [facility] Care Team Providers Care Scheduling Representative Name Role Phone JORDAN OREILLY Attending Unavailable PROVIDER, UNKNOWN Referring Unavailable Nathanael Cazares Primary Care Unavailable PROVIDER, UNKNOWN Referring Unavailable Nathanael Cazares Primary Care Unavailable Jaime Lindquist Attending Unavailable Unavailable Primary Care Provider UnavailBethany Navarrete Primary Care Provider Jarvis Kendall MD Unavailable [phone] Bethany Russell MD Primary Care Provider Unavailable Primary Care Provider Unavailclifton Latif MD, Jenn Edwin Primary Care Provider [phone] Unavailable Primary Care Provider UnavailRenard Mccann Primary [...] Provider Unavailab le Katsaros OLS, Renard Attending Provider Unavailab le Katsaros OLS, Peter Attending Provider Unavailab le [place] OLS, Renard [...] tablet via peg tube as needed ACETAMINOPHEN [id number] Ana Stevenson [employer] albuterol 0.83 mg/ml inhalation solution (1 source) beta2-Adrenergic Agonist Start: 03-19-2021 albut veronica (PROVENTIL) nebulizer solution 2.5 mg albuterol 0.833 mg/ml / ipratropium bromide 0.167 mg/ml inhalation solution (18 sources) Anticholinergic, beta2-Adrenergic Agonist Start: 03-20-2021 ipratropium-alb utero l (DUONEB) nebulizer solution 1 ampule Start: 05-22-2019 IPRATROPIUM-AL BUTEROL 0.5-2.5 (3) MG/3ML SOLN 3ml via nebulizer every 4 hours as needed IPRATROPIUM-ALBUTEROL [id number] Ana Stevenson [employer] Start: 08-22-2018 take 3 mL by inhalat ion every four hours ipratropium-albuterol (DUONEB) 0.5-2.5 (3) MG/3ML SOLN nebulizer solution Inhale 3 mLs into the lungs every 4 hours 360 mL 0 08/22/2018 Active aspirin 81 mg chewable tablet (9 sources) Platelet Aggregation Inhibitor, Nonsteroidal Anti-inflammatory Drug Start: 05-22-2019 ASPIRIN ADULT LOW STRENGTH 81 MG CHEW one tablet via peg tube daily ASPIRIN [id number] Ana Peoplesch [employer] Start: 08-23-2018 aspirin 81 MG chewable tablet 1 tablet by Per NG tube route daily 30 tablet 3 08/23/2018 Active atorvastatin 40 mg oral tablet (9 sources) HMG-CoA Reductase Inhibitor Start: 05-22-2019 ATORVASTATIN CALCIUM 40 MG TABS one tablet via peg tube daily ATORVASTATIN CALCIUM [id number] [facility] Start: 08-22-2018 atorvastatin ( LIPITOR) 40 MG tablet 1 tablet by Per NG tube route nightly 30 tablet 3 08/22/2018 Active castor oil 0.788 mg/mg / belgian balsam 0.087 mg/mg topical ointment (7 sources) Standardized Chemical Allergen Start: 08-22-2018 Balsam [place] O il (VENELEX) OINT ointment Apply topically [...] 250mg via peg tube twice daily CLOZAPINE [id number] [facility] Start: 08-22-2018 cloZAPine (AILYN ZARIL) 100 MG tablet 1 tablet by Per G Tube route 2 times daily 30 tablet 3 08/22/2018 Active cloZAPine (Cloza ril) 100 MG tablet Take 225 mg by mouth 2 times daily. Active take 1 tablet by edmar th once daily cloZAPine (Clozaril) 50 MG tablet Take 50 mg by mouth daily. Active docusate sodium 10 mg/ml ora l suspension (18 sources) Start: 05-22-2019 DOCU 50 MG/5ML LIQD 5ml via peg tube twice daily DOCUSATE SODIUM [id number] [facility] Start: 08-22-2018 docusate (COLA CE) 50 MG/5ML liquid 10 mLs by Per NG tube route 2 times daily 0 08/22/2018 Active take 1 capsule by mo ut twice daily docusate sodium (Colace) 100 MG [...] one tablet via peg tube nightly MELATONIN [id number] Ana Stevenson [employer] Start: 08-22-2018 melatonin 3 MG TABS tablet [...] needed. 0 08/23/2018 Active polyethylene glycol 3350 37331 mg powder for oral solution (1 source) [...] Sig (Normalized) Sig (Original) barium sulfate (Varibar Devol, Varibar Honey) 40 % suspension 5 mL [...] SUPP every 24 hours as needed BISACODYL [id number] Ana Diesch [employer] Start: 05-22-2019 BISACODYL EC 5 MG TBEC one tablet via peg tube daily as needed BISACODYL [id number] Ana Diesch [employer] chlorhexidine gluconate 1.2 mg/ml mouthwash (10 sources) Start: 05-22-2019 PERIDEX 0.12 % SOLN 15ml twice daily CHLORHEXIDINE GLUCONATE [id number] Ana Diesch [employer] chlorhexidine (P eridex) 0.12 % solution Use 15 mL in the mouth or throat if needed for wound care. Active cholecalciferol 1000 unt oral tablet (16 sources) Vitamin D Start: 05-22-2019 VITAMIN D3 25 MCG (1000 UT) TABS one tablet via peg tube daily CHOLECALCIFEROL [id number] Ana Diesch [employer] cholecalciferol (SM Vitamin D3) 25 MCG (1000 UT) tablet Take 1,000 Units by mouth daily. Active dextromethorphan hydrobromide 2 mg/ml / guaiFENesin 20 mg/ml oral solution (1 source) Uncompetitive W-apjpjd-B-aspartate Receptor Antagonist, Sigma-1 Agonist Start: 05-22-2019 ROBITUSSIN PEAK COLD DM SYRP 5ml via peg tube every 4 hours as needed for cough DEXTROMETHORPHAN-GUAIFENESIN SYRP [id number] Ana Stevenson LPN magnesium hydroxide 240 mg/ml oral suspension (1 source) Start: 05-22-2019 MILK OF MAGNESIA CONCENTRATE SUSP 30ml via peg tube every 24 hours MAGNESIUM HYDROXIDE SUSP [id number] Ana Stevenson LPN methylPREDNISolone 40 mg injection (2 sources) Corticosteroid Start: 03-20-2021 End: 03-24-2021 methylPREDNISolone sodium (SOLU-MEDROL) injection 40 mg MULTIPLE VITAMINS-MINERALS (1 source) Start: 05-22-2019 MENS MULTIVITAMIN TABS one tablet via peg tube daily MULTIPLE VITAMINS-MINERALS [id number] Ana Stevenson LPN POLYETHYLENE GLYCOL 1450 (1 source) Start: 05-22-2019 POLYETHYLENE GLYCOL 1450 POW D 17 grams via peg tube twice daily POLYETHYLENE GLYCOL 1450 [id number] Ana Stevenson LPN SENNOSIDES-DOCUSATE SODIUM (1 source) Start: 05-22-2019 SENNA PLUS 8.6-50 MG TABS on e tablet via peg tube daily SENNOSIDES-DOCUSATE SODIUM 65115032517 Ana Stevenson LPN 50 ml sodium chloride [...] unspecified; Translations: [Hyperglycemia, unspecified] Onset: 9 Episodic Disorders of lipid metabolism (2 sources) Hyperlipidemia, [...] Onset: 9 07-11-2018 Other aftercare (2 sources) 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; Translations: [penitentiary (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] Onset: 9 Episodic Other aftercare (2 sources) 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) drug therapy; Translations: [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) drug therapy] Onset: 5 Episodic Other connective tissue disease [...] Translations: [Physical restraint status] Onset: 9 Episodic Respiratory failure; insufficiency; arrest (adult) (4 [...] 9 07-23-2018 Episodic Other aftercare (1 source) 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; Translations: [penitentiary (current) use of antibiotics] Onset: 5 Episodic Other aftercare (1 source) penitentiary (current) use of 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; Translations: [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) use of 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] Onset: 5 Episodic [...] [Hospital acquired pneumonia] Onset: 9 07-26-2018 Episodic Residual codes; unclassified (1 source) Altered mental status, unspecified; Translations: [Altered mental status, unspecified] Onset: 5 Episodic Respiratory failure; insufficiency; arrest (adult) (20 [...] unspecified; Translations: [Feeding difficulties, unspecified] Onset: 4 Viral infection (15 sources) Respiratory syncytial virus infection; Translations: [Respiratory syncytial virus as the cause of diseases classified elsewhere] Onset: 1 Episodic Results Test Name Value Interpretation Reference Range Facility Basic Metabolic Profile (BMP )on 11-12-2024 BUN/CRE 18.8 RATIO Normal 10-20 [facility] Comment on above: Order Comment: ADDED BMP TO 11/11/24 LABS Performed By: #### L 100.0100, L500.2500 ####[facility] [address] [place], [address] Calcium [Mass/Vol] 8.2 mg/dL Normal 7.6-11.0 [facility] Comment on above: Order Comment: ADDED BMP TO 11/11/24 LABS Performed By: #### L 100.0100, L500.2500 ####[facility] [address] [place], [address] Chloride [Moles/Vol] 104 mmol/L Normal 98-108 [facility] Comment on above: Order Comment: ADDED BMP TO 11/11/24 LABS Performed By: #### L 100.0100, L500.2500 ####[facility] [address] [place], [address] CO2 [Moles/Vol] 24.9 mmol/L Normal 21.0-32.0 [facility] Comment on above: Order Comment: ADDED BMP TO 11/11/24 LABS Performed By: #### L 100.0100, L500.2500 ####[facility] [address] [place], [address] Creatinine [Mass/Vol] 0.58 mg/dL Low 0.70-1.20 [facility] Comment on above: Order Comment: ADDED BMP TO 11/11/24 LABS Performed By: #### L 100.0100, L500.2500 ####[facility] [address] [place], [address] GAP 11 Normal 5-15 [facility] Comment on above: Order Comment: ADDED BMP TO 11/11/24 LABS Performed By: #### L 100.0100, L500.2500 ####[facility] [address] [place], [address] GFR/1.73 sq M.predicted among non-blacks MDRD (S/P/Bld) [Vol rate/Area] 107 mL/min/{1.73_m2} Normal >60 [facility] Comment on above: Order Comment: ADDED BMP TO 11/11/24 LABS Result Comment: mL/m in/1.73m2 CKD-EPI Creatinine Equation (2020) Performed By: #### L 100.0100, L500.2500 ####[facility] [address] [place], [address] Glucose [Mass/Vol] 101 mg/dL High 70-99 [facility] Comment on above: Order Comment: ADDED BMP TO 11/11/24 LABS Performed By: #### L 100.0100, L500.2500 ####[facility] [address] [place], [address] Potassium [Moles/Vol] 3.9 mmol/L Normal 3.3-5.1 [facility] Comment on above: Order Comment: ADDED BMP TO 11/11/24 LABS Performed By: #### L 100.0100, L500.2500 ####[facility] [address] [place], [address] Sodium [Moles/Vol] 140 mmol/L Normal 133-145 [facility] Comment on above: Order Comment: ADDED BMP TO 11/11/24 LABS Performed By: #### L 100.0100, L500.2500 ####[facility] [address] [place], [address] Urea nitrogen [Mass/Vol] 11 mg/dL Normal 4-19 [facility] Comment on above: Order Comment: ADDED BMP TO 11/11/24 LABS Performed By: #### L 100.0100, L500.2500 ####[facility] [address] [place], [address] CBC W/Diff, Automatedon 07-05 04-2024 Absolute Lymph 2.08 X10 3/uL Normal 0.83-4.51 [facility] Comment on above: Order Comment: 109.1 Performed By: #### L 100.0100, L500.2500 ####[facility] [address] [place], [address] Absolute Neut 5.2 X10 3/uL Normal 2.0-7.7 [facility] Comment on above: Order Comment: 109.1 Performed By: #### L 100.0100, L500.2500 ####[facility] [address] [place], [address] Basophils/100 WBC (Bld) 0.6 % Normal 0-1 [facility] Comment on above: Order Comment: 109.1 Performed By: #### L 100.0100, L500.2500 ####[facility] [address] [place], [address] Eosinophils/100 WBC (Bld) 1.0 % Normal 0-5 [facility] Comment on above: Order Comment: 109.1 Performed By: #### L 100.0100, L500.2500 ####[facility] [address] [place], [address] Erythrocyte distribution width (RBC) [Ratio] 13.2 % Normal 11.6-14.6 [facility] Comment on above: Order Comment: 109.1 Performed By: #### L 100.0100, L500.2500 ####[facility] [address] [place], [address] Hematocrit (Bld) [Volume fraction] 38.6 % Low 40-54 [facility] Comment on above: Order Comment: 109.1 Performed By: #### L 100.0100, L500.2500 ####[facility] [address] [place], [address] Hemoglobin (Bld) [Mass/Vol] 12.6 g/dL Low 13.0-16.5 [facility] Comment on above: Order Comment: 109.1 Performed By: #### L 100.0100, L500.2500 ####[facility] [address] [place], [address] IG% 0.400 Normal 0.0-0.9 [facility] Comment on above: Order Comment: 109.1 Result Comment: IG% - Immature Granulocytes (promyelocytes, myelocytes andmetamyelocytes) > 1% indicates that a LEFT SHIFT is Present. Performed By: #### L 100.0100, L500.2500 ####[facility] [address] [place], [address] Lymphocytes/100 WBC (Bld) 25.7 % Normal 19-41 [facility] Comment on above: Order Comment: 109.1 Performed By: #### L 100.0100, L500.2500 ####[facility] [address] [place], [address] MCH (RBC) [Entitic mass] 29.9 pg Normal 27.0-32.0 [facility] Comment on above: Order Comment: 109.1 Performed By: #### L 100.0100, L500.2500 ####[facility] [address] [place], [address] MCHC (RBC) [Mass/Vol] 32.6 g/dL Normal 32-36 [facility] Comment on above: Order Comment: 109.1 Performed By: #### L 100.0100, L500.2500 ####[facility] [address] [place], [address] MCV (RBC) [Entitic vol] 91.7 fL Normal 80-94 [facility] Comment on above: Order Comment: 109.1 Performed By: #### L 100.0100, L500.2500 ####[facility] [address] [place], [address] Monocytes/100 WBC (Bld) 8.3 % Normal 0-10 [facility] Comment on above: Order Comment: 109.1 Performed By: #### L 100.0100, L500.2500 ####[facility] [address] [place], [address] Neutrophils/100 WBC (Bld) 64.0 % Normal 47-70 [facility] Comment on above: Order Comment: 109.1 Performed By: #### L 100.0100, L500.2500 ####[facility] [address] [place], [address] Nucleated RBC (Bld) [#/Vol] 0 10*3/uL Normal 0-5 [facility] Comment on above: Order Comment: 109.1 Performed By: #### L 100.0100, L500.2500 ####[facility] [address] [place], [address] Platelet mean volume (Bld) [Entitic vol] 11.4 fL Normal 6.2-12.0 [facility] Comment on above: Order Comment: 109.1 Performed By: #### L 100.0100, L500.2500 ####[facility] [address] [place], [address] Platelets (Bld) [#/Vol] 220 10*3/uL Normal 150-450 [facility] Comment on above: Order Comment: 109.1 Performed By: #### L 100.0100, L500.2500 ####[facility] [address] [place], [address] RBC (Bld) [#/Vol] 4.21 10*6/uL Low 4.6-6.2 [facility] Comment on above: Order Comment: 109.1 Performed By: #### L 100.0100, L500.2500 ####[facility] [address] [place], [address] RDW SD 44.4 fl High 35.1-43.9 [facility] Comment on above: Order Comment: 109.1 Performed By: #### L 100.0100, L500.2500 ####[facility] [address] [place], [address] WBC (Bld) [#/Vol] 8.1 10*3/uL Normal 4.4-11.0 [facility] Comment on above: Order Comment: 109.1 Performed By: #### L 100.0100, L500.2500 ####[facility] [address] [place], [address] CBC W/Diff, Automatedon 07-0 PLT EST A Normal ADEQ [facility] Comment on above: Order Comment: 109 Performed By: #### L 100.0100 ####[facility] [address] [place], [address] PLT MORPH CLUMPED Normal [facility] Comment on above: Order Comment: 109 Performed By: #### L 100.0100 ####[facility] [address] [place], [address] CBC W/Diff, Automatedon 06-3 0-2025 Absolute Lymph 1.72 X10 3/uL Normal 0.83-4.51 [facility] Comment on above: Order Comment: 109-1 Performed By: #### L 100.0100 ####[facility] [address] [place], [address] Absolute Neut 5.0 X10 3/uL Normal 2.0-7.7 [facility] Comment on above: Order Comment: 109-1 Performed By: #### L 100.0100 ####[facility] [address] [place], [address] Basophils/100 WBC (Bld) 0.7 % Normal 0-1 [facility] Comment on above: Order Comment: 109-1 Performed By: #### L 100.0100 ####[facility] [address] [place], [address] Eosinophils/100 WBC (Bld) 1.2 % Normal 0-5 [facility] Comment on above: Order Comment: 109-1 Performed By: #### L 100.0100 ####[facility] [address] [place], [address] Erythrocyte distribution width (RBC) [Ratio] 13.2 % Normal 11.6-14.6 [facility] Comment on above: Order Comment: 109-1 Performed By: #### L 100.0100 ####[facility] [address] [place], [address] Hematocrit (Bld) [Volume fraction] 37.3 % Low 40-54 [facility] Comment on above: Order Comment: 109-1 Performed By: #### L 100.0100 ####[facility] [address] [place], [address] Hemoglobin (Bld) [Mass/Vol] 12.3 g/dL Low 13.0-16.5 [facility] Comment on above: Order Comment: 109-1 Performed By: #### L 100.0100 ####[facility] [address] [place], [address] IG% 0.100 Normal 0.0-0.9 [facility] Comment on above: Order Comment: 109-1 Result Comment: IG% - Immature Granulocytes (promyelocytes, myelocytes andmetamyelocytes) > 1% indicates that a LEFT SHIFT is Present. Performed By: #### L 100.0100 ####[facility] [address] [place], [address] Lymphocytes/100 WBC (Bld) 22.9 % Normal 19-41 [facility] Comment on above: Order Comment: 109-1 Performed By: #### L 100.0100 ####[facility] [address] [place], [address] MCH (RBC) [Entitic mass] 30.1 pg Normal 27.0-32.0 [facility] Comment on above: Order Comment: 109-1 Performed By: #### L 100.0100 ####[facility] [address] [place], [address] MCHC (RBC) [Mass/Vol] 33.0 g/dL Normal 32-36 [facility] Comment on above: Order Comment: 109-1 Performed By: #### L 100.0100 ####[facility] [address] [place], [address] MCV (RBC) [Entitic vol] 91.4 fL Normal 80-94 [facility] Comment on above: Order Comment: 109-1 Performed By: #### L 100.0100 ####[facility] [address] [place], [address] Monocytes/100 WBC (Bld) 8.1 % Normal 0-10 [facility] Comment on above: Order Comment: 109-1 Performed By: #### L 100.0100 ####[facility] [address] [place], [address] Neutrophils/100 WBC (Bld) 67.0 % Normal 47-70 [facility] Comment on above: Order Comment: 109-1 Performed By: #### L 100.0100 ####[facility] [address] [place], [address] Nucleated RBC (Bld) [#/Vol] 0 10*3/uL Normal 0-5 [facility] Comment on above: Order Comment: 109-1 Performed By: #### L 100.0100 ####[facility] [address] [place], [address] Platelet mean volume (Bld) [Entitic vol] 11.3 fL Normal 6.2-12.0 [facility] Comment on above: Order Comment: 109-1 Performed By: #### L 100.0100 ####[facility] [address] [place], [address] Platelets (Bld) [#/Vol] 201 10*3/uL Normal 150-450 [facility] Comment on above: Order Comment: 109-1 Performed By: #### L 100.0100 ####[facility] [address] [place], [address] RBC (Bld) [#/Vol] 4.08 10*6/uL Low 4.6-6.2 [facility] Comment on above: Order Comment: 109-1 Performed By: #### L 100.0100 ####[facility] [address] [place], [address] RDW SD 44.0 fl High 35.1-43.9 [facility] Comment on above: Order Comment: 109-1 Performed By: #### L 100.0100 ####[facility] [address] [place], [address] WBC (Bld) [#/Vol] 7.5 10*3/uL Normal 4.4-11.0 [facility] Comment on above: Order Comment: 109-1 Performed By: #### L 100.0100 ####[facility] [address] [place], [address] Absolute lymphocyte countOrd ered By: Renard Burgos on 10-21-2024 Lymphocytes Auto (Unsp spec) [#/Vol] 2.41 10*3/uL 0.83-4.51 [facility] Absolute neutrophil countOrd ered By: Renard Burgos on 10-21-2024 Neutrophils (Bld) [#/Vol] 5.2 10*3/uL 2.0-7.7 [facility] Automated lymphocyte count a s percentage of total leukocytesOrdered By: Renard Burogs on 10-21-2024 Lymphocytes/100 WBC Auto (Unsp spec) 28.2 % 19-41 [facility] Basophil percentageOrdered B y: Renard Burgos on 10-21-2024 Basophils/100 WBC (Bld) 0.6 % 0-1 [facility] CBC W/Diff, Automatedon 09-30 Absolute Lymph 2.41 X10 3/uL Normal 0.83-4.51 [facility] Comment on above: Order Comment: 109 Performed By: #### L 100.0100 ####[facility] [address] [place], [address] Absolute Neut 5.2 X10 3/uL Normal 2.0-7.7 [facility] Comment on above: Order Comment: 109 Performed By: #### L 100.0100 ####[facility] [address] [place], [address] Basophils/100 WBC (Bld) 0.6 % Normal 0-1 [facility] Comment on above: Order Comment: 109 Performed By: #### L 100.0100 ####[facility] [address] [place], [address] Eosinophils/100 WBC (Bld) 0.8 % Normal 0-5 [facility] Comment on above: Order Comment: 109 Performed By: #### L 100.0100 ####[facility] [address] [place], [address] Erythrocyte distribution width (RBC) [Ratio] 13.3 % Normal 11.6-14.6 [facility] Comment on above: Order Comment: 109 Performed By: #### L 100.0100 ####[facility] [address] [place], [address] Hematocrit (Bld) [Volume fraction] 38.9 % Low 40-54 [facility] Comment on above: Order Comment: 109 Performed By: #### L 100.0100 ####[facility] [address] [place], [address] Hemoglobin (Bld) [Mass/Vol] 12.8 g/dL Low 13.0-16.5 [facility] Comment on above: Order Comment: 109 Performed By: #### L 100.0100 ####[facility] [address] [place], [address] IG% 0.400 Normal 0.0-0.9 [facility] Comment on above: Order Comment: 109 Result Comment: IG% - Immature Granulocytes (promyelocytes, myelocytes andmetamyelocytes) > 1% indicates that a LEFT SHIFT is Present. Performed By: #### L 100.0100 ####[facility] [address] [place], [address] Lymphocytes/100 WBC (Bld) 28.2 % Normal 19-41 [facility] Comment on above: Order Comment: 109 Performed By: #### L 100.0100 ####[facility] [address] [place], [address] MCH (RBC) [Entitic mass] 30.1 pg Normal 27.0-32.0 [facility] Comment on above: Order Comment: 109 Performed By: #### L 100.0100 ####[facility] [address] [place], [address] MCHC (RBC) [Mass/Vol] 32.9 g/dL Normal 32-36 [facility] Comment on above: Order Comment: 109 Performed By: #### L 100.0100 ####[facility] [address] [place], [address] MCV (RBC) [Entitic vol] 91.5 fL Normal 80-94 [facility] Comment on above: Order Comment: 109 Performed By: #### L 100.0100 ####[facility] [address] [place], [address] Monocytes/100 WBC (Bld) 9.1 % Normal 0-10 [facility] Comment on above: Order Comment: 109 Performed By: #### L 100.0100 ####[facility] [address] [place], [address] Neutrophils/100 WBC (Bld) 60.9 % Normal 47-70 [facility] Comment on above: Order Comment: 109 Performed By: #### L 100.0100 ####[facility] [address] [place], [address] Nucleated RBC (Bld) [#/Vol] 0 10*3/uL Normal 0-5 [facility] Comment on above: Order Comment: 109 Performed By: #### L 100.0100 ####[facility] [address] [place], [address] Platelet mean volume (Bld) [Entitic vol] 11.2 fL Normal 6.2-12.0 [facility] Comment on above: Order Comment: 109 Performed By: #### L 100.0100 ####[facility] [address] [place], [address] Platelets (Bld) [#/Vol] 204 10*3/uL Normal 150-450 [facility] Comment on above: Order Comment: 109 Performed By: #### L 100.0100 ####[facility] [address] [place], [address] RBC (Bld) [#/Vol] 4.25 10*6/uL Low 4.6-6.2 [facility] Comment on above: Order Comment: 109 Performed By: #### L 100.0100 ####[facility] [address] [place], [address] RDW SD 44.5 fl High 35.1-43.9 [facility] Comment on above: Order Comment: 109 Performed By: #### L 100.0100 ####[facility] [address] [place], [address] WBC (Bld) [#/Vol] 8.5 10*3/uL Normal 4.4-11.0 [facility] Comment on above: Order Comment: 109 Performed By: #### L 100.0100 ####[facility] [address] [place], [address] Eosinophil percentageOrdered By: Renard Burgos on 10-21-2024 Eosinophils/100 WBC (Bld) 0.8 % 0-5 [facility] Erythrocyte distribution wid th ratioOrdered By: Renard Burgos on 10-21-2024 Erythrocyte distribution width (RBC) [Ratio] 13.3 % 11.6-14.6 [facility] Erythrocyte distribution wid th standard deviationOrdered By: Renard Burgos on 10-21-2024 Erythrocyte distribution width (RBC) [Ratio] 44.5 fl High 35.1-43.9 [facility] Hematocrit Auto (Bld) [Volum e fraction]Ordered By: Renard Burgos on 10-21-2024 Hematocrit (Bld) [Volume fraction] 38.9 % Low 40-54 [facility] Hemoglobin measurementOrdere d By: Renard Burgos on 10-21-2024 Hemoglobin (Bld) [Mass/Vol] 12.8 g/dL Low 13.0-16.5 [facility] Immature granulocytes/100 WB C Auto (Bld)Ordered By: Renard Burgos on 10-21-2024 Immature granulocytes/100 WBC (Bld) 0.400 % 0.0-0.9 [facility] Comment on above: IG% - Immature Granu locytes (promyelocytes, myelocytes and metamyelocytes) > 1% indicates that a LEFT SHIFT is Present. MCV (mean corpuscular volume ) determinationOrdered By: Renard Burgos on 10-21-2024 MCV (RBC) [Entitic vol] 91.5 fL 80-94 [facility] Mean corpuscular hemoglobin (MCH) determinationOrdered By: Renard Burgos on 10-21-2024 MCH (RBC) [Entitic mass] 30.1 pg 27.0-32.0 [facility] Mean corpuscular hemoglobin concentration (MCHC) determinationOrdered By: Renard Burgos on 10-21-2024 MCHC (RBC) [Mass/Vol] 32.9 g/dL 32-36 [facility] Mean platelet volume determi nationOrdered By: Renard Burgos on 10-21-2024 Platelet mean volume (Bld) [Entitic vol] 11.2 fL 6.2-12.0 [facility] Monocyte percentageOrdered B y: Renard Burgos on 10-21-2024 Monocytes/100 WBC (Bld) 9.1 % 0-10 [facility] Neutrophil percentageOrdered By: Renard Burgos on 10-21-2024 Neutrophils/100 WBC (Bld) 60.9 % 47-70 [facility] Nucleated red blood cell per centageOrdered By: Renard Burgos on 10-21-2024 Nucleated RBC/100 WBC (Bld) [Ratio] 0 % 0-5 [facility] Platelet countOrdered By: Garrick Bhatt on 10-21-2024 Platelets (Bld) [#/Vol] 204 10*3/uL 150-450 [facility] RBC Auto (Bld) [#/Vol]Ordere d By: Renard Burgos on 10-21-2024 RBC (Bld) [#/Vol] 4.25 10*6/uL Low 4.6-6.2 [facility] White blood cell (WBC) count Ordered By: Renard Burgos on 10-21-2024 WBC (Bld) [#/Vol] 8.5 10*3/uL 4.4-11.0 [facility] Absolute lymphocyte countOrd ered By: Renard Burgos on 10-14-2024 Lymphocytes Auto (Unsp spec) [#/Vol] 1.77 10*3/uL 0.83-4.51 [facility] Absolute neutrophil countOrd ered By: Renard Burgos on 10-14-2024 Neutrophils (Bld) [#/Vol] 4.8 10*3/uL 2.0-7.7 [facility] Automated lymphocyte count a s percentage of total leukocytesOrdered By: Renard Bugros on 10-14-2024 Lymphocytes/100 WBC Auto (Unsp spec) 24.2 % 19-41 [facility] Basophil percentageOrdered B y: Renard Burgos on 10-14-2024 Basophils/100 WBC (Bld) 0.7 % 0-1 [facility] CBC W/Diff, Automatedon 09-29 Absolute Lymph 1.77 X10 3/uL Normal 0.83-4.51 [facility] Comment on above: Order Comment: 109 Performed By: #### L 100.0100 ####[facility] [address] [place], [address] Absolute Neut 4.8 X10 3/uL Normal 2.0-7.7 [facility] Comment on above: Order Comment: 109 Performed By: #### L 100.0100 ####[facility] [address] [place], [address] Basophils/100 WBC (Bld) 0.7 % Normal 0-1 [facility] Comment on above: Order Comment: 109 Performed By: #### L 100.0100 ####[facility] [address] [place], [address] Eosinophils/100 WBC (Bld) 0.8 % Normal 0-5 [facility] Comment on above: Order Comment: 109 Performed By: #### L 100.0100 ####[facility] [address] [place], [address] Erythrocyte distribution width (RBC) [Ratio] 13.2 % Normal 11.6-14.6 [facility] Comment on above: Order Comment: 109 Performed By: #### L 100.0100 ####[facility] [address] [place], [address] Hematocrit (Bld) [Volume fraction] 42.7 % Normal 40-54 [facility] Comment on above: Order Comment: 109 Performed By: #### L 100.0100 ####[facility] [address] [place], [address] Hemoglobin (Bld) [Mass/Vol] 13.9 g/dL Normal 13.0-16.5 [facility] Comment on above: Order Comment: 109 Performed By: #### L 100.0100 ####[facility] [address] [place], [address] IG% 0.300 Normal 0.0-0.9 [facility] Comment on above: Order Comment: 109 Result Comment: IG% - Immature Granulocytes (promyelocytes, myelocytes andmetamyelocytes) > 1% indicates that a LEFT SHIFT is Present. Performed By: #### L 100.0100 ####[facility] [address] [place], [address] Lymphocytes/100 WBC (Bld) 24.2 % Normal 19-41 [facility] Comment on above: Order Comment: 109 Performed By: #### L 100.0100 ####[facility] [address] [place], [address] MCH (RBC) [Entitic mass] 29.7 pg Normal 27.0-32.0 [facility] Comment on above: Order Comment: 109 Performed By: #### L 100.0100 ####[facility] [address] [place], [address] MCHC (RBC) [Mass/Vol] 32.6 g/dL Normal 32-36 [facility] Comment on above: Order Comment: 109 Performed By: #### L 100.0100 ####[facility] [address] [place], [address] MCV (RBC) [Entitic vol] 91.2 fL Normal 80-94 [facility] Comment on above: Order Comment: 109 Performed By: #### L 100.0100 ####[facility] [address] [place], [address] Monocytes/100 WBC (Bld) 8.6 % Normal 0-10 [facility] Comment on above: Order Comment: 109 Performed By: #### L 100.0100 ####[facility] [address] [place], [address] Neutrophils/100 WBC (Bld) 65.4 % Normal 47-70 [facility] Comment on above: Order Comment: 109 Performed By: #### L 100.0100 ####[facility] [address] [place], [address] Nucleated RBC (Bld) [#/Vol] 0 10*3/uL Normal 0-5 [facility] Comment on above: Order Comment: 109 Performed By: #### L 100.0100 ####[facility] [address] [place], [address] Platelet mean volume (Bld) [Entitic vol] 11.1 fL Normal 6.2-12.0 [facility] Comment on above: Order Comment: 109 Performed By: #### L 100.0100 ####[facility] [address] [place], [address] Platelets (Bld) [#/Vol] 232 10*3/uL Normal 150-450 [facility] Comment on above: Order Comment: 109 Performed By: #### L 100.0100 ####[facility] [address] [place], [address] RBC (Bld) [#/Vol] 4.68 10*6/uL Normal 4.6-6.2 [facility] Comment on above: Order Comment: 109 Performed By: #### L 100.0100 ####[facility] [address] [place], [address] RDW SD 44.1 fl High 35.1-43.9 [facility] Comment on above: Order Comment: 109 Performed By: #### L 100.0100 ####[facility] [address] [place], [address] WBC (Bld) [#/Vol] 7.3 10*3/uL Normal 4.4-11.0 [facility] Comment on above: Order Comment: 109 Performed By: #### L 100.0100 ####[facility] [address] [place], [place], [phone] Eosinophil percentageOrdered By: Renard Burgos on 10-14-2024 Eosinophils/100 WBC (Bld) 0.8 % 0-5 [facility] Erythrocyte distribution wid th ratioOrdered By: Renard Burgos on 10-14-2024 Erythrocyte distribution width (RBC) [Ratio] 13.2 % 11.6-14.6 [facility] Erythrocyte distribution wid th standard deviationOrdered By: Renard Burgos on 10-14-2024 Erythrocyte distribution width (RBC) [Ratio] 44.1 fl High 35.1-43.9 [facility] Hematocrit Auto (Bld) [Volum e fraction]Ordered By: Renard Burgos on 10-14-2024 Hematocrit (Bld) [Volume fraction] 42.7 % 40-54 [facility] Hemoglobin measurementOrdere d By: Renard Burgos on 10-14-2024 Hemoglobin (Bld) [Mass/Vol] 13.9 g/dL 13.0-16.5 [facility] Immature granulocytes/100 WB C Auto (Bld)Ordered By: Renard Burgos on 10-14-2024 Immature granulocytes/100 WBC (Bld) 0.300 % 0.0-0.9 [facility] Comment on above: IG% - Immature Granu locytes (promyelocytes, myelocytes and metamyelocytes) > 1% indicates that a LEFT SHIFT is Present. MCV (mean corpuscular volume ) determinationOrdered By: Renard Burgos on 10-14-2024 MCV (RBC) [Entitic vol] 91.2 fL 80-94 [facility] Mean corpuscular hemoglobin (MCH) determinationOrdered By: Renard Burgos on 10-14-2024 MCH (RBC) [Entitic mass] 29.7 pg 27.0-32.0 [facility] Mean corpuscular hemoglobin concentration (MCHC) determinationOrdered By: Renard Burgos on 10-14-2024 MCHC (RBC) [Mass/Vol] 32.6 g/dL 32-36 [facility] Mean platelet volume determi nationOrdered By: Renard Burgos on 10-14-2024 Platelet mean volume (Bld) [Entitic vol] 11.1 fL 6.2-12.0 [facility] Monocyte percentageOrdered B y: Renard Burgos on 10-14-2024 Monocytes/100 WBC (Bld) 8.6 % 0-10 [facility] Neutrophil percentageOrdered By: Renard Burgos on 10-14-2024 Neutrophils/100 WBC (Bld) 65.4 % 47-70 [facility] Nucleated red blood cell per centageOrdered By: Renard Burgos on 10-14-2024 Nucleated RBC/100 WBC (Bld) [Ratio] 0 % 0-5 [facility] Platelet countOrdered By: Garrick Bhatt on 10-14-2024 Platelets (Bld) [#/Vol] 232 10*3/uL 150-450 [facility] RBC Auto (Bld) [#/Vol]Ordere d By: Renard Burgos on 10-14-2024 RBC (Bld) [#/Vol] 4.68 10*6/uL 4.6-6.2 [facility] White blood cell (WBC) count Ordered By: Renard Burgos on 10-14-2024 WBC (Bld) [#/Vol] 7.3 10*3/uL 4.4-11.0 [facility] Absolute lymphocyte countOrd ered By: Renard Burgos on 10-07-2024 Lymphocytes Auto (Unsp spec) [#/Vol] 2.20 10*3/uL 0.83-4.51 [facility] Absolute neutrophil countOrd ered By: Renard Burgos on 10-07-2024 Neutrophils (Bld) [#/Vol] 5.1 10*3/uL 2.0-7.7 [facility] Automated lymphocyte count a s percentage of total leukocytesOrdered By: Renard Burgos on 10-07-2024 Lymphocytes/100 WBC Auto (Unsp spec) 27.2 % 19-41 [facility] Basophil percentageOrdered B y: Renard Burgos on 10-07-2024 Basophils/100 WBC (Bld) 0.5 % 0-1 [facility] CBC W/Diff, Automatedon Absolute Lymph 2.20 X10 3/uL Normal 0.83-4.51 [facility] Comment on above: Order Comment: 109-1 Performed By: #### L 100.0100 ####[facility] [address] [place], [address] Absolute Neut 5.1 X10 3/uL Normal 2.0-7.7 [facility] Comment on above: Order Comment: 109-1 Performed By: #### L 100.0100 ####[facility] [address] [place], [address] Basophils/100 WBC (Bld) 0.5 % Normal 0-1 [facility] Comment on above: Order Comment: 109-1 Performed By: #### L 100.0100 ####[facility] [address] [place], [address] Eosinophils/100 WBC (Bld) 0.9 % Normal 0-5 [facility] Comment on above: Order Comment: 109-1 Performed By: #### L 100.0100 ####[facility] [address] [place], [address] Erythrocyte distribution width (RBC) [Ratio] 13.2 % Normal 11.6-14.6 [facility] Comment on above: Order Comment: 109-1 Performed By: #### L 100.0100 ####[facility] [address] [place], [address] Hematocrit (Bld) [Volume fraction] 40.8 % Normal 40-54 [facility] Comment on above: Order Comment: 109-1 Performed By: #### L 100.0100 ####[facility] [address] [place], [address] Hemoglobin (Bld) [Mass/Vol] 13.8 g/dL Normal 13.0-16.5 [facility] Comment on above: Order Comment: 109-1 Performed By: #### L 100.0100 ####[facility] [address] [place], [address] IG% 0.200 Normal 0.0-0.9 [facility] Comment on above: Order Comment: 109-1 Result Comment: IG% - Immature Granulocytes (promyelocytes, myelocytes andmetamyelocytes) > 1% indicates that a LEFT SHIFT is Present. Performed By: #### L 100.0100 ####[facility] [address] [place], [address] Lymphocytes/100 WBC (Bld) 27.2 % Normal 19-41 [facility] Comment on above: Order Comment: 109-1 Performed By: #### L 100.0100 ####[facility] [address] [place], [address] MCH (RBC) [Entitic mass] 30.0 pg Normal 27.0-32.0 [facility] Comment on above: Order Comment: 109-1 Performed By: #### L 100.0100 ####[facility] [address] [place], [address] MCHC (RBC) [Mass/Vol] 33.8 g/dL Normal 32-36 [facility] Comment on above: Order Comment: 109-1 Performed By: #### L 100.0100 ####[facility] [address] [place], [address] MCV (RBC) [Entitic vol] 88.7 fL Normal 80-94 [facility] Comment on above: Order Comment: 109-1 Performed By: #### L 100.0100 ####[facility] [address] [place], [address] Monocytes/100 WBC (Bld) 8.4 % Normal 0-10 [facility] Comment on above: Order Comment: 109-1 Performed By: #### L 100.0100 ####[facility] [address] [place], [address] Neutrophils/100 WBC (Bld) 62.8 % Normal 47-70 [facility] Comment on above: Order Comment: 109-1 Performed By: #### L 100.0100 ####[facility] [address] [place], [address] Nucleated RBC (Bld) [#/Vol] 0 10*3/uL Normal 0-5 [facility] Comment on above: Order Comment: 109-1 Performed By: #### L 100.0100 ####[facility] [address] [place], [address] Platelet mean volume (Bld) [Entitic vol] 11.2 fL Normal 6.2-12.0 [facility] Comment on above: Order Comment: 109-1 Performed By: #### L 100.0100 ####[facility] [address] [place], [address] Platelets (Bld) [#/Vol] 214 10*3/uL Normal 150-450 [facility] Comment on above: Order Comment: 109-1 Performed By: #### L 100.0100 ####[facility] [address] [place], [address] RBC (Bld) [#/Vol] 4.60 10*6/uL Normal 4.6-6.2 [facility] Comment on above: Order Comment: 109-1 Performed By: #### L 100.0100 ####[facility] [address] [place], [address] RDW SD 43.0 fl Normal 35.1-43.9 [facility] Comment on above: Order Comment: 109-1 Performed By: #### L 100.0100 ####[facility] [address] [place], [address] WBC (Bld) [#/Vol] 8.1 10*3/uL Normal 4.4-11.0 [facility] Comment on above: Order Comment: 109-1 Performed By: #### L 100.0100 ####[facility] [address] [place], [address] Eosinophil percentageOrdered By: Renard Burgos on 10-07-2024 Eosinophils/100 WBC (Bld) 0.9 % 0-5 [facility] Erythrocyte distribution wid th ratioOrdered By: Renard Burgos on 10-07-2024 Erythrocyte distribution width (RBC) [Ratio] 13.2 % 11.6-14.6 [facility] Erythrocyte distribution wid th standard deviationOrdered By: Renard Burgos on 10-07-2024 Erythrocyte distribution width (RBC) [Ratio] 43.0 fl 35.1-43.9 [facility] Hematocrit Auto (Bld) [Volum e fraction]Ordered By: Renard Burgos on 10-07-2024 Hematocrit (Bld) [Volume fraction] 40.8 % 40-54 [facility] Hemoglobin measurementOrdere d By: Renard Burgos on 10-07-2024 Hemoglobin (Bld) [Mass/Vol] 13.8 g/dL 13.0-16.5 [facility] Immature granulocytes/100 WB C Auto (Bld)Ordered By: Renard Burgos on 10-07-2024 Immature granulocytes/100 WBC (Bld) 0.200 % 0.0-0.9 [facility] Comment on above: IG% - Immature Granu locytes (promyelocytes, myelocytes and metamyelocytes) > 1% indicates that a LEFT SHIFT is Present. MCV (mean corpuscular volume ) determinationOrdered By: Renard Burgos on 10-07-2024 MCV (RBC) [Entitic vol] 88.7 fL 80-94 [facility] Mean corpuscular hemoglobin (MCH) determinationOrdered By: Renard Burgos on 10-07-2024 MCH (RBC) [Entitic mass] 30.0 pg 27.0-32.0 [facility] Mean corpuscular hemoglobin concentration (MCHC) determinationOrdered By: Renard Burgos on 10-07-2024 MCHC (RBC) [Mass/Vol] 33.8 g/dL 32-36 [facility] Mean platelet volume determi nationOrdered By: Renard Burgos on 10-07-2024 Platelet mean volume (Bld) [Entitic vol] 11.2 fL 6.2-12.0 [facility] Monocyte percentageOrdered B y: Renard Burgos on 10-07-2024 Monocytes/100 WBC (Bld) 8.4 % 0-10 [facility] Neutrophil percentageOrdered By: Renard Burgos on 10-07-2024 Neutrophils/100 WBC (Bld) 62.8 % 47-70 [facility] Nucleated red blood cell per centageOrdered By: Renard Burgos on 10-07-2024 Nucleated RBC/100 WBC (Bld) [Ratio] 0 % 0-5 [facility] Platelet countOrdered By: Garrick Bhatt on 10-07-2024 Platelets (Bld) [#/Vol] 214 10*3/uL 150-450 [facility] RBC Auto (Bld) [#/Vol]Ordere d By: Renard Burgos on 10-07-2024 RBC (Bld) [#/Vol] 4.60 10*6/uL 4.6-6.2 [facility] White blood cell (WBC) count Ordered By: Renard Burgos on 10-07-2024 WBC (Bld) [#/Vol] 8.1 10*3/uL 4.4-11.0 [facility] Absolute lymphocyte countOrd ered By: Renard Burgos on 09-30-2024 Lymphocytes Auto (Unsp spec) [#/Vol] 3.13 10*3/uL 0.83-4.51 [facility] Absolute neutrophil countOrd ered By: Renard Burgos on 09-30-2024 Neutrophils (Bld) [#/Vol] 5.6 10*3/uL 2.0-7.7 [facility] Automated lymphocyte count a s percentage of total leukocytesOrdered By: Renard Burgos on 09-30-2024 Lymphocytes/100 WBC Auto (Unsp spec) 31.7 % 19-41 [facility] Basophil percentageOrdered B y: Renard Burgos on 09-30-2024 Basophils/100 WBC (Bld) 0.6 % 0-1 [facility] CBC W/Diff, Automatedon Absolute Lymph 3.13 X10 3/uL Normal 0.83-4.51 [facility] Comment on above: Order Comment: 109-1 Performed By: #### L 100.0100 ####[facility] [address] [place], [address] Absolute Neut 5.6 X10 3/uL Normal 2.0-7.7 [facility] Comment on above: Order Comment: 109-1 Performed By: #### L 100.0100 ####[facility] [address] [place], [address] Basophils/100 WBC (Bld) 0.6 % Normal 0-1 [facility] Comment on above: Order Comment: 109-1 Performed By: #### L 100.0100 ####[facility] [address] [place], [address] Eosinophils/100 WBC (Bld) 0.7 % Normal 0-5 [facility] Comment on above: Order Comment: 109-1 Performed By: #### L 100.0100 ####[facility] [address] [place], [address] Erythrocyte distribution width (RBC) [Ratio] 13.0 % Normal 11.6-14.6 [facility] Comment on above: Order Comment: 109-1 Performed By: #### L 100.0100 ####[facility] [address] [place], [address] Hematocrit (Bld) [Volume fraction] 46.9 % Normal 40-54 [facility] Comment on above: Order Comment: 109-1 Performed By: #### L 100.0100 ####[facility] [address] [place], [address] Hemoglobin (Bld) [Mass/Vol] 15.3 g/dL Normal 13.0-16.5 [facility] Comment on above: Order Comment: 109-1 Performed By: #### L 100.0100 ####[facility] [address] [place], [address] IG% 0.300 Normal 0.0-0.9 [facility] Comment on above: Order Comment: 109-1 Result Comment: IG% - Immature Granulocytes (promyelocytes, myelocytes andmetamyelocytes) > 1% indicates that a LEFT SHIFT is Present. Performed By: #### L 100.0100 ####[facility] [address] [place], [address] Lymphocytes/100 WBC (Bld) 31.7 % Normal 19-41 [facility] Comment on above: Order Comment: 109-1 Performed By: #### L 100.0100 ####[facility] [address] [place], [address] MCH (RBC) [Entitic mass] 29.7 pg Normal 27.0-32.0 [facility] Comment on above: Order Comment: 109-1 Performed By: #### L 100.0100 ####[facility] [address] [place], [address] MCHC (RBC) [Mass/Vol] 32.6 g/dL Normal 32-36 [facility] Comment on above: Order Comment: 109-1 Performed By: #### L 100.0100 ####[facility] [address] [place], [address] MCV (RBC) [Entitic vol] 91.1 fL Normal 80-94 [facility] Comment on above: Order Comment: 109-1 Performed By: #### L 100.0100 ####[facility] [address] [place], [address] Monocytes/100 WBC (Bld) 10.4 % High 0-10 [facility] Comment on above: Order Comment: 109-1 Performed By: #### L 100.0100 ####[facility] [address] [place], [address] Neutrophils/100 WBC (Bld) 56.3 % Normal 47-70 [facility] Comment on above: Order Comment: 109-1 Performed By: #### L 100.0100 ####[facility] [address] [place], [address] Nucleated RBC (Bld) [#/Vol] 0 10*3/uL Normal 0-5 [facility] Comment on above: Order Comment: 109-1 Performed By: #### L 100.0100 ####[facility] [address] [place], [address] Platelet mean volume (Bld) [Entitic vol] 11.7 fL Normal 6.2-12.0 [facility] Comment on above: Order Comment: 109-1 Performed By: #### L 100.0100 ####[facility] [address] [place], [address] Platelets (Bld) [#/Vol] 208 10*3/uL Normal 150-450 [facility] Comment on above: Order Comment: 109-1 Performed By: #### L 100.0100 ####[facility] [address] [place], [address] RBC (Bld) [#/Vol] 5.15 10*6/uL Normal 4.6-6.2 [facility] Comment on above: Order Comment: 109-1 Performed By: #### L 100.0100 ####[facility] [address] [place], [address] RDW SD 42.7 fl Normal 35.1-43.9 [facility] Comment on above: Order Comment: 109-1 Performed By: #### L 100.0100 ####[facility] [address] [place], [address] WBC (Bld) [#/Vol] 9.9 10*3/uL Normal 4.4-11.0 [facility] Comment on above: Order Comment: 109-1 Performed By: #### L 100.0100 ####[facility] [address] [place], [address] Eosinophil percentageOrdered By: Renard Burgos on 09-30-2024 Eosinophils/100 WBC (Bld) 0.7 % 0-5 [facility] Erythrocyte distribution wid th ratioOrdered By: Renard Burgos on 09-30-2024 Erythrocyte distribution width (RBC) [Ratio] 13.0 % 11.6-14.6 [facility] Erythrocyte distribution wid th standard deviationOrdered By: Renard Burgos on 09-30-2024 Erythrocyte distribution width (RBC) [Ratio] 42.7 fl 35.1-43.9 [facility] Hematocrit Auto (Bld) [Volum e fraction]Ordered By: Renard Burgos on 09-30-2024 Hematocrit (Bld) [Volume fraction] 46.9 % 40-54 [facility] Hemoglobin measurementOrdere d By: Renard Burgos on 09-30-2024 Hemoglobin (Bld) [Mass/Vol] 15.3 g/dL 13.0-16.5 [facility] Immature granulocytes/100 WB C Auto (Bld)Ordered By: Renard Burgos on 09-30-2024 Immature granulocytes/100 WBC (Bld) 0.300 % 0.0-0.9 [facility] Comment on above: IG% - Immature Granu locytes (promyelocytes, myelocytes and metamyelocytes) > 1% indicates that a LEFT SHIFT is Present. MCV (mean corpuscular volume ) determinationOrdered By: Renard Burgos on 09-30-2024 MCV (RBC) [Entitic vol] 91.1 fL 80-94 [facility] Mean corpuscular hemoglobin (MCH) determinationOrdered By: Renard Burgos on 09-30-2024 MCH (RBC) [Entitic mass] 29.7 pg 27.0-32.0 [facility] Mean corpuscular hemoglobin concentration (MCHC) determinationOrdered By: Renard Burgos on 09-30-2024 MCHC (RBC) [Mass/Vol] 32.6 g/dL 32-36 [facility] Mean platelet volume determi nationOrdered By: Renard Burgos on 09-30-2024 Platelet mean volume (Bld) [Entitic vol] 11.7 fL 6.2-12.0 [facility] Monocyte percentageOrdered B y: Renard Burgos on 09-30-2024 Monocytes/100 WBC (Bld) 10.4 % High 0-10 [facility] Neutrophil percentageOrdered By: Renard Burgos on 09-30-2024 Neutrophils/100 WBC (Bld) 56.3 % 47-70 [facility] Nucleated red blood cell per centageOrdered By: Renard Burgos on 09-30-2024 Nucleated RBC/100 WBC (Bld) [Ratio] 0 % 0-5 [facility] Platelet countOrdered By: Garrick Bhatt on 09-30-2024 Platelets (Bld) [#/Vol] 208 10*3/uL 150-450 [facility] RBC Auto (Bld) [#/Vol]Ordere d By: Renard Burgos on 09-30-2024 RBC (Bld) [#/Vol] 5.15 10*6/uL 4.6-6.2 [facility] White blood cell (WBC) count Ordered By: Renard Burgos on 09-30-2024 WBC (Bld) [#/Vol] 9.9 10*3/uL 4.4-11.0 [facility] Absolute lymphocyte countOrd ered By: Renard Burgos on 09-24-2024 Lymphocytes Auto (Unsp spec) [#/Vol] 1.97 10*3/uL 0.83-4.51 [facility] Absolute neutrophil countOrd ered By: Renard Burgos on 09-24-2024 Neutrophils (Bld) [#/Vol] 6.8 10*3/uL 2.0-7.7 [facility] Automated blood erythrocyte countOrdered By: Renard Burgos on 09-24-2024 RBC (Bld) [#/Vol] 4.48 10*6/uL Low 4.6-6.2 [facility] Comment on above: Order Comment: 109 Performed By: #### L 100.0100 ####[facility] [address] [place], [place], [id number] Automated blood hematocrit ( percentage)Ordered By: Renard Burgos on 09-24-2024 Hematocrit (Bld) [Volume fraction] 40.4 % Normal 40-54 [facility] Comment on above: Order Comment: 109 Performed By: #### L 100.0100 ####[facility] [address] [place], [place], [id number] Automated lymphocyte count a s percentage of total leukocytesOrdered By: Renard Burgos on 09-24-2024 Lymphocytes/100 WBC Auto (Unsp spec) 20.5 % 19-41 [facility] Basophil percentageOrdered B y: Renard Burgos on 09-24-2024 Basophils/100 WBC (Bld) 0.5 % Normal 0-1 [facility] Comment on above: Order Comment: 109 Performed By: #### L 100.0100 ####[facility] [address] [place], [address] CBC W/Diff, Automatedon 05- Absolute Lymph 1.97 X10 3/uL Normal 0.83-4.51 [facility] Comment on above: Order Comment: 109 Performed By: #### L 100.0100 ####[facility] [address] [place], [address] Absolute Neut 6.8 X10 3/uL Normal 2.0-7.7 [facility] Comment on above: Order Comment: 109 Performed By: #### L 100.0100 ####[facility] [address] [place], [address] IG% 0.300 Normal 0.0-0.9 [facility] Comment on above: Order Comment: 109 Result Comment: IG% - Immature Granulocytes (promyelocytes, myelocytes andmetamyelocytes) > 1% indicates that a LEFT SHIFT is Present. Performed By: #### L 100.0100 ####[facility] [address] [place], [address] Lymphocytes/100 WBC (Bld) 20.5 % Normal 19-41 [facility] Comment on above: Order Comment: 109 Performed By: #### L 100.0100 ####[facility] [address] [place], [address] Nucleated RBC (Bld) [#/Vol] 0 10*3/uL Normal 0-5 [facility] Comment on above: Order Comment: 109 Performed By: #### L 100.0100 ####[facility] [address] [place], [address] RDW SD 42.9 fl Normal 35.1-43.9 [facility] Comment on above: Order Comment: 109 Performed By: #### L 100.0100 ####[facility] [address] [place], [address] Eosinophil percentageOrdered By: Renard Burgos on 09-24-2024 Eosinophils/100 WBC (Bld) 0.5 % Normal 0-5 [facility] Comment on above: Order Comment: 109 Performed By: #### L 100.0100 ####[facility] [address] [place], [place], [phone] Erythrocyte distribution wid th ratioOrdered By: Renard Burgos on 09-24-2024 Erythrocyte distribution width (RBC) [Ratio] 13.1 % Normal 11.6-14.6 [facility] Comment on above: Order Comment: 109 Performed By: #### L 100.0100 ####[facility] [address] [place], [address](206) Erythrocyte distribution wid th standard deviationOrdered By: Renard Burgos on 09-24-2024 Erythrocyte distribution width (RBC) [Ratio] 42.9 fl 35.1-43.9 [facility] Hemoglobin measurementOrdere d By: Renard Burgos on 09-24-2024 Hemoglobin (Bld) [Mass/Vol] 13.4 g/dL Normal 13.0-16.5 [facility] Comment on above: Order Comment: 109 Performed By: #### L 100.0100 ####[facility] [address] [place], [address](118) Immature granulocytes/100 WB C Auto (Bld)Ordered By: Renard Burgos on 09-24-2024 Immature granulocytes/100 WBC (Bld) 0.300 % 0.0-0.9 [facility] Comment on above: IG% - Immature Granu locytes (promyelocytes, myelocytes and metamyelocytes) > 1% indicates that a LEFT SHIFT is Present. MCV (mean corpuscular volume ) determinationOrdered By: Renard Burgos on 09-24-2024 MCV (RBC) [Entitic vol] 90.2 fL Normal 80-94 [facility] Comment on above: Order Comment: 109 Performed By: #### L 100.0100 ####[facility] [address] [place], [address](100) Mean corpuscular hemoglobin (MCH) determinationOrdered By: Renard Burgos on 09-24-2024 MCH (RBC) [Entitic mass] 29.9 pg Normal 27.0-32.0 [facility] Comment on above: Order Comment: 109 Performed By: #### L 100.0100 ####[facility] [address] [place], [place], [phone] Mean corpuscular hemoglobin concentration (MCHC) determinationOrdered By: Renard Burgos on 09-24-2024 MCHC (RBC) [Mass/Vol] 33.2 g/dL Normal 32-36 [facility] Comment on above: Order Comment: 109 Performed By: #### L 100.0100 ####[facility] [address] [place], [address] Mean platelet volume determi nationOrdered By: Rneard Burgos on 09-24-2024 Platelet mean volume (Bld) [Entitic vol] 11.3 fL Normal 6.2-12.0 [facility] Comment on above: Order Comment: 109 Performed By: #### L 100.0100 ####[facility] [address] [place], [address] Monocyte percentageOrdered B y: Renard Burgos on 09-24-2024 Monocytes/100 WBC (Bld) 7.2 % Normal 0-10 [facility] Comment on above: Order Comment: 109 Performed By: #### L 100.0100 ####[facility] [address] [place], [address] Neutrophil percentageOrdered By: Renard Burgos on 09-24-2024 Neutrophils/100 WBC (Bld) 71.0 % High 47-70 [facility] Comment on above: Order Comment: 109 Performed By: #### L 100.0100 ####[facility] [address] [place], [phone] Nucleated red blood cell per centageOrdered By: Renard Burgos on 09-24-2024 Nucleated RBC/100 WBC (Bld) [Ratio] 0 % 0-5 [facility] Platelet countOrdered By: Garrick Bhatt on 09-24-2024 Platelets (Bld) [#/Vol] 187 10*3/uL Normal 150-450 [facility] Comment on above: Order Comment: 109 Performed By: #### L 100.0100 ####[facility] [address] [place], [place], [address] White blood cell (WBC) count Ordered By: Renard Burgos on 09-24-2024 WBC (Bld) [#/Vol] 9.6 10*3/uL Normal 4.4-11.0 [facility] Comment on above: Order Comment: 109 Performed By: #### L 100.0100 ####[facility] [address] [place], [place], [phone] Absolute lymphocyte countOrd ered By: Renard Burgos on 09-16-2024 Lymphocytes Auto (Unsp spec) [#/Vol] 2.44 10*3/uL 0.83-4.51 [facility] Absolute neutrophil countOrd ered By: Renard Burgos on 09-16-2024 Neutrophils (Bld) [#/Vol] 5.5 10*3/uL 2.0-7.7 [facility] Automated lymphocyte count a s percentage of total leukocytesOrdered By: Renard Burgos on 09-16-2024 Lymphocytes/100 WBC Auto (Unsp spec) 27.7 % 19-41 [facility] Basophil percentageOrdered B y: Renard Burgos on 09-16-2024 Basophils/100 WBC (Bld) 0.8 % 0-1 [facility] CBC W/Diff, Automatedon 08-29 Absolute Lymph 2.44 X10 3/uL Normal 0.83-4.51 [facility] Comment on above: Order Comment: 109.1 Performed By: #### L 100.0100 ####[facility] [address] [place], [place], [phone] Absolute Neut 5.5 X10 3/uL Normal 2.0-7.7 [facility] Comment on above: Order Comment: 109.1 Performed By: #### L 100.0100 ####[facility] [address] [place], [address] Basophils/100 WBC (Bld) 0.8 % Normal 0-1 [facility] Comment on above: Order Comment: 109.1 Performed By: #### L 100.0100 ####[facility] [address] [place], [address] Eosinophils/100 WBC (Bld) 0.7 % Normal 0-5 [facility] Comment on above: Order Comment: 109.1 Performed By: #### L 100.0100 ####[facility] [address] [place], [address] Erythrocyte distribution width (RBC) [Ratio] 13.1 % Normal 11.6-14.6 [facility] Comment on above: Order Comment: 109.1 Performed By: #### L 100.0100 ####[facility] [address] [place], [address] Hematocrit (Bld) [Volume fraction] 46.8 % Normal 40-54 [facility] Comment on above: Order Comment: 109.1 Performed By: #### L 100.0100 ####[facility] [address] [place], [address] Hemoglobin (Bld) [Mass/Vol] 15.4 g/dL Normal 13.0-16.5 [facility] Comment on above: Order Comment: 109.1 Performed By: #### L 100.0100 ####[facility] [address] [place], [address] IG% 0.200 Normal 0.0-0.9 [facility] Comment on above: Order Comment: 109.1 Result Comment: IG% - Immature Granulocytes (promyelocytes, myelocytes andmetamyelocytes) > 1% indicates that a LEFT SHIFT is Present. Performed By: #### L 100.0100 ####[facility] [address] [place], [address] Lymphocytes/100 WBC (Bld) 27.7 % Normal 19-41 [facility] Comment on above: Order Comment: 109.1 Performed By: #### L 100.0100 ####[facility] [address] [place], [address] MCH (RBC) [Entitic mass] 30.1 pg Normal 27.0-32.0 [facility] Comment on above: Order Comment: 109.1 Performed By: #### L 100.0100 ####[facility] [address] [place], [address] MCHC (RBC) [Mass/Vol] 32.9 g/dL Normal 32-36 [facility] Comment on above: Order Comment: 109.1 Performed By: #### L 100.0100 ####[facility] [address] [place], [address] MCV (RBC) [Entitic vol] 91.4 fL Normal 80-94 [facility] Comment on above: Order Comment: 109.1 Performed By: #### L 100.0100 ####[facility] [address] [place], [address] Monocytes/100 WBC (Bld) 8.5 % Normal 0-10 [facility] Comment on above: Order Comment: 109.1 Performed By: #### L 100.0100 ####[facility] [address] [place], [address] Neutrophils/100 WBC (Bld) 62.1 % Normal 47-70 [facility] Comment on above: Order Comment: 109.1 Performed By: #### L 100.0100 ####[facility] [address] [place], [address] Nucleated RBC (Bld) [#/Vol] 0 10*3/uL Normal 0-5 [facility] Comment on above: Order Comment: 109.1 Performed By: #### L 100.0100 ####[facility] [address] [place], [address] Platelet mean volume (Bld) [Entitic vol] 10.6 fL Normal 6.2-12.0 [facility] Comment on above: Order Comment: 109.1 Performed By: #### L 100.0100 ####[facility] [address] [place], [address] Platelets (Bld) [#/Vol] 190 10*3/uL Normal 150-450 [facility] Comment on above: Order Comment: 109.1 Performed By: #### L 100.0100 ####[facility] [address] [place], [address] RBC (Bld) [#/Vol] 5.12 10*6/uL Normal 4.6-6.2 [facility] Comment on above: Order Comment: 109.1 Performed By: #### L 100.0100 ####[facility] [address] [place], [address] RDW SD 43.3 fl Normal 35.1-43.9 [facility] Comment on above: Order Comment: 109.1 Performed By: #### L 100.0100 ####[facility] [address] [place], [address] WBC (Bld) [#/Vol] 8.8 10*3/uL Normal 4.4-11.0 [facility] Comment on above: Order Comment: 109.1 Performed By: #### L 100.0100 ####[facility] [address] [place], [address] Eosinophil percentageOrdered By: Rneard Burgos on 09-16-2024 Eosinophils/100 WBC (Bld) 0.7 % 0-5 [facility] Erythrocyte distribution wid th ratioOrdered By: Renard Burgos on 09-16-2024 Erythrocyte distribution width (RBC) [Ratio] 13.1 % 11.6-14.6 [facility] Erythrocyte distribution wid th standard deviationOrdered By: Renard Burgos on 09-16-2024 Erythrocyte distribution width (RBC) [Ratio] 43.3 fl 35.1-43.9 [facility] Hematocrit Auto (Bld) [Volum e fraction]Ordered By: Renard Burgos on 09-16-2024 Hematocrit (Bld) [Volume fraction] 46.8 % 40-54 [facility] Hemoglobin measurementOrdere d By: Renard Burgos on 09-16-2024 Hemoglobin (Bld) [Mass/Vol] 15.4 g/dL 13.0-16.5 [facility] Immature granulocytes/100 WB C Auto (Bld)Ordered By: Renard Burgos on 09-16-2024 Immature granulocytes/100 WBC (Bld) 0.200 % 0.0-0.9 [facility] Comment on above: IG% - Immature Granu locytes (promyelocytes, myelocytes and metamyelocytes) > 1% indicates that a LEFT SHIFT is Present. MCV (mean corpuscular volume ) determinationOrdered By: Renard Burgos on 09-16-2024 MCV (RBC) [Entitic vol] 91.4 fL 80-94 [facility] Mean corpuscular hemoglobin (MCH) determinationOrdered By: Renard Burgos on 09-16-2024 MCH (RBC) [Entitic mass] 30.1 pg 27.0-32.0 [facility] Mean corpuscular hemoglobin concentration (MCHC) determinationOrdered By: Renard Burgos on 09-16-2024 MCHC (RBC) [Mass/Vol] 32.9 g/dL 32-36 [facility] Mean platelet volume determi nationOrdered By: Renard Burgos on 09-16-2024 Platelet mean volume (Bld) [Entitic vol] 10.6 fL 6.2-12.0 [facility] Monocyte percentageOrdered B y: Renard Burgos on 09-16-2024 Monocytes/100 WBC (Bld) 8.5 % 0-10 [facility] Neutrophil percentageOrdered By: Renard Burgos on 09-16-2024 Neutrophils/100 WBC (Bld) 62.1 % 47-70 [facility] Nucleated red blood cell per centageOrdered By: Renard Burgos on 09-16-2024 Nucleated RBC/100 WBC (Bld) [Ratio] 0 % 0-5 [facility] Platelet countOrdered By: Grarick Bhatt on 09-16-2024 Platelets (Bld) [#/Vol] 190 10*3/uL 150-450 [facility] RBC Auto (Bld) [#/Vol]Ordere d By: Renard Burgos on 09-16-2024 RBC (Bld) [#/Vol] 5.12 10*6/uL 4.6-6.2 [facility] White blood cell (WBC) count Ordered By: Renard Burgos on 09-16-2024 WBC (Bld) [#/Vol] 8.8 10*3/uL 4.4-11.0 [facility] Anion gap in Serum or Plasma Ordered By: Renard Burgos on 09-11-2024 Anion gap [Moles/Vol] 11 mmol/L 5-15 [facility] Automated blood erythrocyte countOrdered By: Renard Burgos on 09-11-2024 RBC (Bld) [#/Vol] 4.67 10*6/uL Normal 4.6-6.2 [facility] Comment on above: Order Comment: 109-1 Performed By: #### L 100.0500, L500.2500 ####[facility] [address] [place], [place], [phone] Automated blood hematocrit ( percentage)Ordered By: Renard Burgos on 09-11-2024 Hematocrit (Bld) [Volume fraction] 42.7 % Normal 40-54 [facility] Comment on above: Order Comment: 109-1 Performed By: #### L 100.0500, L500.2500 ####[facility] [address] [place], [place], [address] BUN/creatinine ratioOrdered By: Renard Burgos on 09-11-2024 Urea nitrogen/Creatinine [Mass ratio] 23.0 mg/mg High 10-20 [facility] Basic Metabolic Profile (BMP )on 09-11-2024 BUN/CRE 23.0 RATIO High 10-20 [facility] Comment on above: Order Comment: 109-1 Performed By: #### L 100.0500, L500.2500 ####[facility] [address] [place], [address] Calcium [Mass/Vol] 8.7 mg/dL Normal 7.6-11.0 [facility] Comment on above: Order Comment: 109-1 Performed By: #### L 100.0500, L500.2500 ####[facility] [address] [place], [address] Chloride [Moles/Vol] 104 mmol/L Normal 98-108 [facility] Comment on above: Order Comment: 109-1 Performed By: #### L 100.0500, L500.2500 ####[facility] [address] [place], [address] CO2 [Moles/Vol] 25.9 mmol/L Normal 21.0-32.0 [facility] Comment on above: Order Comment: 109-1 Performed By: #### L 100.0500, L500.2500 ####[facility] [address] [place], [address] Creatinine [Mass/Vol] 0.58 mg/dL Low 0.70-1.20 [facility] Comment on above: Order Comment: 109-1 Performed By: #### L 100.0500, L500.2500 ####[facility] [address] [place], [address] GAP 11 Normal 5-15 [facility] Comment on above: Order Comment: 109-1 Performed By: #### L 100.0500, L500.2500 ####[facility] [address] [place], [address] GFR/1.73 sq M.predicted among non-blacks MDRD (S/P/Bld) [Vol rate/Area] 107 mL/min/{1.73_m2} Normal >60 [facility] Comment on above: Order Comment: 109-1 Result Comment: mL/m in/1.73m2 CKD-EPI Creatinine Equation (2020) Performed By: #### L 100.0500, L500.2500 ####[facility] [address] [place], [address] Glucose [Mass/Vol] 113 mg/dL High 70-99 [facility] Comment on above: Order Comment: 109-1 Performed By: #### L 100.0500, L500.2500 ####[facility] [address] [place], [address] Potassium [Moles/Vol] 3.8 mmol/L Normal 3.3-5.1 [facility] Comment on above: Order Comment: 109-1 Performed By: #### L 100.0500, L500.2500 ####[facility] [address] [place], [address] Sodium [Moles/Vol] 141 mmol/L Normal 133-145 [facility] Comment on above: Order Comment: 109-1 Performed By: #### L 100.0500, L500.2500 ####[facility] [address] [place], [address] Urea nitrogen [Mass/Vol] 13 mg/dL Normal 4-19 [facility] Comment on above: Order Comment: 109-1 Performed By: #### L 100.0500, L500.2500 ####[facility] [address] [place], [address] CBC-Complete Blood Cnt No Di ffon 09-11-2024 RDW SD 43.7 fl Normal 35.1-43.9 [facility] Comment on above: Order Comment: 109-1 Performed By: #### L 100.0500, L500.2500 ####[facility] [address] [place], [place], [address] Carbon dioxide, total [Moles /volume] in Central venous bloodOrdered By: Renard Burgos on 09-11-2024 CO2 [Moles/Vol] 25.9 mmol/L 21.0-32.0 [facility] Chloride assayOrdered By: Garrick Bhatt on 09-11-2024 Chloride [Moles/Vol] 104 mmol/L 98-108 [facility] Erythrocyte distribution wid th ratioOrdered By: Renard Burgos on 09-11-2024 Erythrocyte distribution width (RBC) [Ratio] 13.2 % Normal 11.6-14.6 [facility] Comment on above: Order Comment: 109-1 Performed By: #### L 100.0500, L500.2500 ####[facility] [address] [place], [place], [address] Erythrocyte distribution wid th standard deviationOrdered By: Renard Burgos on 09-11-2024 Erythrocyte distribution width (RBC) [Ratio] 43.7 fl 35.1-43.9 [facility] Glomerular filtration rate ( GFR) estimation/1.73 sq m using serum, plasma, or whole bOrdered By: Renard Burgos on 09-11-2024 GFR/1.73 sq M.predicted among non-blacks MDRD (S/P/Bld) [Vol rate/Area] 107 mL/min/{1.73_m2} >60 [facility] Comment on above: mL/min/1.73m2 CKD-EP I Creatinine Equation (2020) Hemoglobin measurementOrdere d By: Renard Burgos on 09-11-2024 Hemoglobin (Bld) [Mass/Vol] 14.0 g/dL Normal 13.0-16.5 [facility] Comment on above: Order Comment: 109-1 Performed By: #### L 100.0500, L500.2500 ####[facility] [address] [place], [place], [phone] MCV (mean corpuscular volume ) determinationOrdered By: Renard Burgos on 09-11-2024 MCV (RBC) [Entitic vol] 91.4 fL Normal 80-94 [facility] Comment on above: Order Comment: 109-1 Performed By: #### L 100.0500, L500.2500 ####[facility] [address] [place], [address] Mean corpuscular hemoglobin (MCH) determinationOrdered By: Renard Burgos on 09-11-2024 MCH (RBC) [Entitic mass] 30.0 pg Normal 27.0-32.0 [facility] Comment on above: Order Comment: 109-1 Performed By: #### L 100.0500, L500.2500 ####[facility] [address] [place], [address] Mean corpuscular hemoglobin concentration (MCHC) determinationOrdered By: Renard Burgos on 09-11-2024 MCHC (RBC) [Mass/Vol] 32.8 g/dL Normal 32-36 [facility] Comment on above: Order Comment: 109-1 Performed By: #### L 100.0500, L500.2500 ####[facility] [address] [place], [address] Mean platelet volume determi nationOrdered By: Renard Burgos on 09-11-2024 Platelet mean volume (Bld) [Entitic vol] 11.3 fL Normal 6.2-12.0 [facility] Comment on above: Order Comment: 109-1 Performed By: #### L 100.0500, L500.2500 ####[facility] [address] [place], [address] Platelet countOrdered By: Garrick Bhatt on 09-11-2024 Platelets (Bld) [#/Vol] 191 10*3/uL Normal 150-450 [facility] Comment on above: Order Comment: 109-1 Performed By: #### L 100.0500, L500.2500 ####[facility] [address] [place], [address] Potassium measurement (mass/ volume)Ordered By: Renard Burgos on 09-11-2024 Potassium (Unsp spec) [Mass/Vol] 3.8 mmol/L 3.3-5.1 [facility] Serum creatinine measurement (mass/volume)Ordered By: Renard Burgos on 09-11-2024 Creatinine [Mass/Vol] 0.58 mg/dL Low 0.70-1.20 [facility] Serum glucose measurement (m ass/volume)Ordered By: Renard Burgos on 09-11-2024 Glucose [Mass/Vol] 113 mg/dL High 70-99 [facility] Serum or plasma calcium gordy urement (mass/volume)Ordered By: Renard Burgos on 09-11-2024 Calcium [Mass/Vol] 8.7 mg/dL 7.6-11.0 [facility] Serum or plasma urea nitroge n measurement (mass/volume)Ordered By: Renard Burgos on 09-11-2024 Urea nitrogen [Mass/Vol] 13 mg/dL 4-19 [facility] Sodium levelOrdered By: Lamine Burgos on 09-11-2024 Sodium [Moles/Vol] 141 mmol/L 133-145 [facility] White blood cell (WBC) count Ordered By: Renard Burgos on 09-11-2024 WBC (Bld) [#/Vol] 7.6 10*3/uL Normal 4.4-11.0 [facility] Comment on above: Order Comment: 109-1 Performed By: #### L 100.0500, L500.2500 ####[facility] [address] [place], [address] Absolute lymphocyte countOrd ered By: Renard Burgos on 09-09-2024 Lymphocytes Auto (Unsp spec) [#/Vol] 2.24 10*3/uL 0.83-4.51 [facility] Absolute neutrophil countOrd ered By: Renard Burgos on 09-09-2024 Neutrophils (Bld) [#/Vol] 8.7 10*3/uL High 2.0-7.7 [facility] Automated lymphocyte count a s percentage of total leukocytesOrdered By: Renard Burgos on 09-09-2024 Lymphocytes/100 WBC Auto (Unsp spec) 19.1 % 19-41 [facility] Basophil percentageOrdered B y: Renard Burgos on 09-09-2024 Basophils/100 WBC (Bld) 0.4 % 0-1 [facility] CBC W/Diff, Automatedon 08-29 Absolute Lymph 2.24 X10 3/uL Normal 0.83-4.51 [facility] Comment on above: Order Comment: 109-1 Performed By: #### L 100.0100 ####[facility] [address] [place], [address] Absolute Neut 8.7 X10 3/uL High 2.0-7.7 [facility] Comment on above: Order Comment: 109-1 Performed By: #### L 100.0100 ####[facility] [address] [place], [address] Basophils/100 WBC (Bld) 0.4 % Normal 0-1 [facility] Comment on above: Order Comment: 109-1 Performed By: #### L 100.0100 ####[facility] [address] [place], [address] Eosinophils/100 WBC (Bld) 0.5 % Normal 0-5 [facility] Comment on above: Order Comment: 109-1 Performed By: #### L 100.0100 ####[facility] [address] [place], [address] Erythrocyte distribution width (RBC) [Ratio] 13.0 % Normal 11.6-14.6 [facility] Comment on above: Order Comment: 109-1 Performed By: #### L 100.0100 ####[facility] [address] [place], [address] Hematocrit (Bld) [Volume fraction] 44.7 % Normal 40-54 [facility] Comment on above: Order Comment: 109-1 Performed By: #### L 100.0100 ####[facility] [address] [place], [address] Hemoglobin (Bld) [Mass/Vol] 14.6 g/dL Normal 13.0-16.5 [facility] Comment on above: Order Comment: 109-1 Performed By: #### L 100.0100 ####[facility] [address] [place], [address] IG% 0.300 Normal 0.0-0.9 [facility] Comment on above: Order Comment: 109-1 Result Comment: IG% - Immature Granulocytes (promyelocytes, myelocytes andmetamyelocytes) > 1% indicates that a LEFT SHIFT is Present. Performed By: #### L 100.0100 ####[facility] [address] [place], [address] Lymphocytes/100 WBC (Bld) 19.1 % Normal 19-41 [facility] Comment on above: Order Comment: 109-1 Performed By: #### L 100.0100 ####[facility] [address] [place], [address] MCH (RBC) [Entitic mass] 30.1 pg Normal 27.0-32.0 [facility] Comment on above: Order Comment: 109-1 Performed By: #### L 100.0100 ####[facility] [address] [place], [address] MCHC (RBC) [Mass/Vol] 32.7 g/dL Normal 32-36 [facility] Comment on above: Order Comment: 109-1 Performed By: #### L 100.0100 ####[facility] [address] [place], [address] MCV (RBC) [Entitic vol] 92.2 fL Normal 80-94 [facility] Comment on above: Order Comment: 109-1 Performed By: #### L 100.0100 ####[facility] [address] [place], [address] Monocytes/100 WBC (Bld) 5.1 % Normal 0-10 [facility] Comment on above: Order Comment: 109-1 Performed By: #### L 100.0100 ####[facility] [address] [place], [address] Neutrophils/100 WBC (Bld) 74.6 % High 47-70 [facility] Comment on above: Order Comment: 109-1 Performed By: #### L 100.0100 ####[facility] [address] [place], [address] Nucleated RBC (Bld) [#/Vol] 0 10*3/uL Normal 0-5 [facility] Comment on above: Order Comment: 109-1 Performed By: #### L 100.0100 ####[facility] [address] [place], [address] Platelet mean volume (Bld) [Entitic vol] 11.6 fL Normal 6.2-12.0 [facility] Comment on above: Order Comment: 109-1 Performed By: #### L 100.0100 ####[facility] [address] [place], [address] Platelets (Bld) [#/Vol] 189 10*3/uL Normal 150-450 [facility] Comment on above: Order Comment: 109-1 Performed By: #### L 100.0100 ####[facility] [address] [place], [address] RBC (Bld) [#/Vol] 4.85 10*6/uL Normal 4.6-6.2 [facility] Comment on above: Order Comment: 109-1 Performed By: #### L 100.0100 ####[facility] [address] [place], [address] RDW SD 43.8 fl Normal 35.1-43.9 [facility] Comment on above: Order Comment: 109-1 Performed By: #### L 100.0100 ####[facility] [address] [place], [address] WBC (Bld) [#/Vol] 11.7 10*3/uL High 4.4-11.0 [facility] Comment on above: Order Comment: 109-1 Performed By: #### L 100.0100 ####[facility] [address] [place], [address] Eosinophil percentageOrdered By: Renard Burgos on 09-09-2024 Eosinophils/100 WBC (Bld) 0.5 % 0-5 [facility] Erythrocyte distribution wid th ratioOrdered By: Renard Burgos on 09-09-2024 Erythrocyte distribution width (RBC) [Ratio] 13.0 % 11.6-14.6 [facility] Erythrocyte distribution wid th standard deviationOrdered By: Renard Burgos on 09-09-2024 Erythrocyte distribution width (RBC) [Ratio] 43.8 fl 35.1-43.9 [facility] Hematocrit Auto (Bld) [Volum e fraction]Ordered By: Renard Burgos on 09-09-2024 Hematocrit (Bld) [Volume fraction] 44.7 % 40-54 [facility] Hemoglobin measurementOrdere d By: Renard Burgos on 09-09-2024 Hemoglobin (Bld) [Mass/Vol] 14.6 g/dL 13.0-16.5 [facility] Immature granulocytes/100 WB C Auto (Bld)Ordered By: Renard Burgos on 09-09-2024 Immature granulocytes/100 WBC (Bld) 0.300 % 0.0-0.9 [facility] Comment on above: IG% - Immature Granu locytes (promyelocytes, myelocytes and metamyelocytes) > 1% indicates that a LEFT SHIFT is Present. MCV (mean corpuscular volume ) determinationOrdered By: Renard Burgos on 09-09-2024 MCV (RBC) [Entitic vol] 92.2 fL 80-94 [facility] Mean corpuscular hemoglobin (MCH) determinationOrdered By: Renard Burgos on 09-09-2024 MCH (RBC) [Entitic mass] 30.1 pg 27.0-32.0 [facility] Mean corpuscular hemoglobin concentration (MCHC) determinationOrdered By: Renard Burgos on 09-09-2024 MCHC (RBC) [Mass/Vol] 32.7 g/dL 32-36 [facility] Mean platelet volume determi nationOrdered By: Renard Burgos on 09-09-2024 Platelet mean volume (Bld) [Entitic vol] 11.6 fL 6.2-12.0 [facility] Monocyte percentageOrdered B y: Renard Burgos on 09-09-2024 Monocytes/100 WBC (Bld) 5.1 % 0-10 [facility] Neutrophil percentageOrdered By: Renard Burgos on 09-09-2024 Neutrophils/100 WBC (Bld) 74.6 % High 47-70 [facility] Nucleated red blood cell per centageOrdered By: Renard Burgos on 09-09-2024 Nucleated RBC/100 WBC (Bld) [Ratio] 0 % 0-5 [facility] Platelet countOrdered By: Garrick Bhatt on 09-09-2024 Platelets (Bld) [#/Vol] 189 10*3/uL 150-450 [facility] RBC Auto (Bld) [#/Vol]Ordere d By: Renard Burgos on 09-09-2024 RBC (Bld) [#/Vol] 4.85 10*6/uL 4.6-6.2 [facility] White blood cell (WBC) count Ordered By: Renard Burgos on 09-09-2024 WBC (Bld) [#/Vol] 11.7 10*3/uL High 4.4-11.0 [facility] Absolute lymphocyte countOrd ered By: Renard Burgos on 09-02-2024 Lymphocytes Auto (Unsp spec) [#/Vol] 2.07 10*3/uL 0.83-4.51 [facility] Absolute neutrophil countOrd ered By: Renard Burgos on 09-02-2024 Neutrophils (Bld) [#/Vol] 5.8 10*3/uL 2.0-7.7 [facility] Automated lymphocyte count a s percentage of total leukocytesOrdered By: Renard Burogs on 09-02-2024 Lymphocytes/100 WBC Auto (Unsp spec) 24.4 % 19-41 [facility] Basophil percentageOrdered B y: Renard Burgos on 09-02-2024 Basophils/100 WBC (Bld) 0.6 % 0-1 [facility] CBC W/Diff, Automatedon Absolute Lymph 2.07 X10 3/uL Normal 0.83-4.51 [facility] Comment on above: Order Comment: 109 Performed By: #### L 100.0100 ####[facility] [address] [place], [address] Absolute Neut 5.8 X10 3/uL Normal 2.0-7.7 [facility] Comment on above: Order Comment: 109 Performed By: #### L 100.0100 ####[facility] [address] [place], [address] Basophils/100 WBC (Bld) 0.6 % Normal 0-1 [facility] Comment on above: Order Comment: 109 Performed By: #### L 100.0100 ####[facility] [address] [place], [address] Eosinophils/100 WBC (Bld) 0.7 % Normal 0-5 [facility] Comment on above: Order Comment: 109 Performed By: #### L 100.0100 ####[facility] [address] [place], [address] Erythrocyte distribution width (RBC) [Ratio] 12.8 % Normal 11.6-14.6 [facility] Comment on above: Order Comment: 109 Performed By: #### L 100.0100 ####[facility] [address] [place], [address] Hematocrit (Bld) [Volume fraction] 44.5 % Normal 40-54 [facility] Comment on above: Order Comment: 109 Performed By: #### L 100.0100 ####[facility] [address] [place], [address] Hemoglobin (Bld) [Mass/Vol] 14.9 g/dL Normal 13.0-16.5 [facility] Comment on above: Order Comment: 109 Performed By: #### L 100.0100 ####[facility] [address] [place], [address] IG% 0.400 Normal 0.0-0.9 [facility] Comment on above: Order Comment: 109 Result Comment: IG% - Immature Granulocytes (promyelocytes, myelocytes andmetamyelocytes) > 1% indicates that a LEFT SHIFT is Present. Performed By: #### L 100.0100 ####[facility] [address] [place], [address] Lymphocytes/100 WBC (Bld) 24.4 % Normal 19-41 [facility] Comment on above: Order Comment: 109 Performed By: #### L 100.0100 ####[facility] [address] [place], [address] MCH (RBC) [Entitic mass] 29.9 pg Normal 27.0-32.0 [facility] Comment on above: Order Comment: 109 Performed By: #### L 100.0100 ####[facility] [address] [place], [address] MCHC (RBC) [Mass/Vol] 33.5 g/dL Normal 32-36 [facility] Comment on above: Order Comment: 109 Performed By: #### L 100.0100 ####[facility] [address] [place], [address] MCV (RBC) [Entitic vol] 89.4 fL Normal 80-94 [facility] Comment on above: Order Comment: 109 Performed By: #### L 100.0100 ####[facility] [address] [place], [address] Monocytes/100 WBC (Bld) 5.4 % Normal 0-10 [facility] Comment on above: Order Comment: 109 Performed By: #### L 100.0100 ####[facility] [address] [place], [address] Neutrophils/100 WBC (Bld) 68.5 % Normal 47-70 [facility] Comment on above: Order Comment: 109 Performed By: #### L 100.0100 ####[facility] [address] [place], [address] Nucleated RBC (Bld) [#/Vol] 0 10*3/uL Normal 0-5 [facility] Comment on above: Order Comment: 109 Performed By: #### L 100.0100 ####[facility] [address] [place], [address] Platelet mean volume (Bld) [Entitic vol] 10.7 fL Normal 6.2-12.0 [facility] Comment on above: Order Comment: 109 Performed By: #### L 100.0100 ####[facility] [address] [place], [address] Platelets (Bld) [#/Vol] 189 10*3/uL Normal 150-450 [facility] Comment on above: Order Comment: 109 Performed By: #### L 100.0100 ####[facility] [address] [place], [address] RBC (Bld) [#/Vol] 4.98 10*6/uL Normal 4.6-6.2 [facility] Comment on above: Order Comment: 109 Performed By: #### L 100.0100 ####[facility] [address] [place], [address] RDW SD 41.7 fl Normal 35.1-43.9 [facility] Comment on above: Order Comment: 109 Performed By: #### L 100.0100 ####[facility] [address] [place], [place], [address] WBC (Bld) [#/Vol] 8.5 10*3/uL Normal 4.4-11.0 [facility] Comment on above: Order Comment: 109 Performed By: #### L 100.0100 ####[facility] [address] [place], [place], [address] Eosinophil percentageOrdered By: Renard Burgos on 09-02-2024 Eosinophils/100 WBC (Bld) 0.7 % 0-5 [facility] Erythrocyte distribution wid th ratioOrdered By: Renard Burgos on 09-02-2024 Erythrocyte distribution width (RBC) [Ratio] 12.8 % 11.6-14.6 [facility] Erythrocyte distribution wid th standard deviationOrdered By: Renard Burgos on 09-02-2024 Erythrocyte distribution width (RBC) [Ratio] 41.7 fl 35.1-43.9 [facility] Hematocrit Auto (Bld) [Volum e fraction]Ordered By: Renard Burgos on 09-02-2024 Hematocrit (Bld) [Volume fraction] 44.5 % 40-54 [facility] Hemoglobin measurementOrdere d By: Renard Burgos on 09-02-2024 Hemoglobin (Bld) [Mass/Vol] 14.9 g/dL 13.0-16.5 [facility] Immature granulocytes/100 WB C Auto (Bld)Ordered By: Renard Burgos on 09-02-2024 Immature granulocytes/100 WBC (Bld) 0.400 % 0.0-0.9 [facility] Comment on above: IG% - Immature Granu locytes (promyelocytes, myelocytes and metamyelocytes) > 1% indicates that a LEFT SHIFT is Present. MCV (mean corpuscular volume ) determinationOrdered By: Renard Burgos on 09-02-2024 MCV (RBC) [Entitic vol] 89.4 fL 80-94 [facility] Mean corpuscular hemoglobin (MCH) determinationOrdered By: Renard Burgos on 09-02-2024 MCH (RBC) [Entitic mass] 29.9 pg 27.0-32.0 [facility] Mean corpuscular hemoglobin concentration (MCHC) determinationOrdered By: Renard Burgos on 09-02-2024 MCHC (RBC) [Mass/Vol] 33.5 g/dL 32-36 [facility] Mean platelet volume determi nationOrdered By: Renard Burgos on 09-02-2024 Platelet mean volume (Bld) [Entitic vol] 10.7 fL 6.2-12.0 [facility] Monocyte percentageOrdered B y: Renard Burgos on 09-02-2024 Monocytes/100 WBC (Bld) 5.4 % 0-10 [facility] Neutrophil percentageOrdered By: Renard Burgos on 09-02-2024 Neutrophils/100 WBC (Bld) 68.5 % 47-70 [facility] Nucleated red blood cell per centageOrdered By: Renard Burgos on 09-02-2024 Nucleated RBC/100 WBC (Bld) [Ratio] 0 % 0-5 [facility] Platelet countOrdered By: Garrick Bhatt on 09-02-2024 Platelets (Bld) [#/Vol] 189 10*3/uL 150-450 [facility] RBC Auto (Bld) [#/Vol]Ordere d By: Renard Burgos on 09-02-2024 RBC (Bld) [#/Vol] 4.98 10*6/uL 4.6-6.2 [facility] White blood cell (WBC) count Ordered By: Renard Burgos on 09-02-2024 WBC (Bld) [#/Vol] 8.5 10*3/uL 4.4-11.0 [facility] Absolute lymphocyte countOrd ered By: Renard Burgos on 08-26-2024 Lymphocytes Auto (Unsp spec) [#/Vol] 2.17 10*3/uL 0.83-4.51 [facility] Absolute neutrophil countOrd ered By: Renard Burgos on 08-26-2024 Neutrophils (Bld) [#/Vol] 5.7 10*3/uL 2.0-7.7 [facility] Automated lymphocyte count a s percentage of total leukocytesOrdered By: Renard Burgos on 08-26-2024 Lymphocytes/100 WBC Auto (Unsp spec) 25.1 % 19-41 [facility] Basophil percentageOrdered B y: Renard Burgos on 08-26-2024 Basophils/100 WBC (Bld) 0.6 % 0-1 [facility] CBC W/Diff, Automatedon - Absolute Lymph 2.17 X10 3/uL Normal 0.83-4.51 [facility] Comment on above: Order Comment: 109-1 Performed By: #### L 100.0100 ####[facility] [address] [place], [address] Absolute Neut 5.7 X10 3/uL Normal 2.0-7.7 [facility] Comment on above: Order Comment: 109-1 Performed By: #### L 100.0100 ####[facility] [address] [place], [address] Basophils/100 WBC (Bld) 0.6 % Normal 0-1 [facility] Comment on above: Order Comment: 109-1 Performed By: #### L 100.0100 ####[facility] [address] [place], [address] Eosinophils/100 WBC (Bld) 0.8 % Normal 0-5 [facility] Comment on above: Order Comment: 109-1 Performed By: #### L 100.0100 ####[facility] [address] [place], [address] Erythrocyte distribution width (RBC) [Ratio] 12.7 % Normal 11.6-14.6 [facility] Comment on above: Order Comment: 109-1 Performed By: #### L 100.0100 ####[facility] [address] [place], [address] Hematocrit (Bld) [Volume fraction] 41.8 % Normal 40-54 [facility] Comment on above: Order Comment: 109-1 Performed By: #### L 100.0100 ####[facility] [address] [place], [address] Hemoglobin (Bld) [Mass/Vol] 13.8 g/dL Normal 13.0-16.5 [facility] Comment on above: Order Comment: 109-1 Performed By: #### L 100.0100 ####[facility] [address] [place], [address] IG% 0.200 Normal 0.0-0.9 [facility] Comment on above: Order Comment: 109-1 Result Comment: IG% - Immature Granulocytes (promyelocytes, myelocytes andmetamyelocytes) > 1% indicates that a LEFT SHIFT is Present. Performed By: #### L 100.0100 ####[facility] [address] [place], [address] Lymphocytes/100 WBC (Bld) 25.1 % Normal 19-41 [facility] Comment on above: Order Comment: 109-1 Performed By: #### L 100.0100 ####[facility] [address] [place], [address] MCH (RBC) [Entitic mass] 29.7 pg Normal 27.0-32.0 [facility] Comment on above: Order Comment: 109-1 Performed By: #### L 100.0100 ####[facility] [address] [place], [address] MCHC (RBC) [Mass/Vol] 33.0 g/dL Normal 32-36 [facility] Comment on above: Order Comment: 109-1 Performed By: #### L 100.0100 ####[facility] [address] [place], [address] MCV (RBC) [Entitic vol] 90.1 fL Normal 80-94 [facility] Comment on above: Order Comment: 109-1 Performed By: #### L 100.0100 ####[facility] [address] [place], [address] Monocytes/100 WBC (Bld) 7.4 % Normal 0-10 [facility] Comment on above: Order Comment: 109-1 Performed By: #### L 100.0100 ####[facility] [address] [place], [address] Neutrophils/100 WBC (Bld) 65.9 % Normal 47-70 [facility] Comment on above: Order Comment: 109-1 Performed By: #### L 100.0100 ####[facility] [address] [place], [address] Nucleated RBC (Bld) [#/Vol] 0 10*3/uL Normal 0-5 [facility] Comment on above: Order Comment: 109-1 Performed By: #### L 100.0100 ####[facility] [address] [place], [address] Platelet mean volume (Bld) [Entitic vol] 11.3 fL Normal 6.2-12.0 [facility] Comment on above: Order Comment: 109-1 Performed By: #### L 100.0100 ####[facility] [address] [place], [address] Platelets (Bld) [#/Vol] 196 10*3/uL Normal 150-450 [facility] Comment on above: Order Comment: 109-1 Performed By: #### L 100.0100 ####[facility] [address] [place], [address] RBC (Bld) [#/Vol] 4.64 10*6/uL Normal 4.6-6.2 [facility] Comment on above: Order Comment: 109-1 Performed By: #### L 100.0100 ####[facility] [address] [place], [address] RDW SD 41.3 fl Normal 35.1-43.9 [facility] Comment on above: Order Comment: 109-1 Performed By: #### L 100.0100 ####[facility] [address] [place], [address] WBC (Bld) [#/Vol] 8.6 10*3/uL Normal 4.4-11.0 [facility] Comment on above: Order Comment: 109-1 Performed By: #### L 100.0100 ####[facility] [address] [place], [address] Eosinophil percentageOrdered By: Renard Burgos on 08-26-2024 Eosinophils/100 WBC (Bld) 0.8 % 0-5 [facility] Erythrocyte distribution wid th ratioOrdered By: Renard Burgos on 08-26-2024 Erythrocyte distribution width (RBC) [Ratio] 12.7 % 11.6-14.6 [facility] Erythrocyte distribution wid th standard deviationOrdered By: Renard Burgos on 08-26-2024 Erythrocyte distribution width (RBC) [Ratio] 41.3 fl 35.1-43.9 [facility] Hematocrit Auto (Bld) [Volum e fraction]Ordered By: Renard Burgos on 08-26-2024 Hematocrit (Bld) [Volume fraction] 41.8 % 40-54 [facility] Hemoglobin measurementOrdere d By: Renard Burgos on 08-26-2024 Hemoglobin (Bld) [Mass/Vol] 13.8 g/dL 13.0-16.5 [facility] Immature granulocytes/100 WB C Auto (Bld)Ordered By: Renard Burgos on 08-26-2024 Immature granulocytes/100 WBC (Bld) 0.200 % 0.0-0.9 [facility] Comment on above: IG% - Immature Granu locytes (promyelocytes, myelocytes and metamyelocytes) > 1% indicates that a LEFT SHIFT is Present. MCV (mean corpuscular volume ) determinationOrdered By: Renard Burgos on 08-26-2024 MCV (RBC) [Entitic vol] 90.1 fL 80-94 [facility] Mean corpuscular hemoglobin (MCH) determinationOrdered By: Renard Burgos on 08-26-2024 MCH (RBC) [Entitic mass] 29.7 pg 27.0-32.0 [facility] Mean corpuscular hemoglobin concentration (MCHC) determinationOrdered By: Renard Burgos on 08-26-2024 MCHC (RBC) [Mass/Vol] 33.0 g/dL 32-36 [facility] Mean platelet volume determi nationOrdered By: Renard Burgos on 08-26-2024 Platelet mean volume (Bld) [Entitic vol] 11.3 fL 6.2-12.0 [facility] Monocyte percentageOrdered B y: Renard Burgos on 08-26-2024 Monocytes/100 WBC (Bld) 7.4 % 0-10 [facility] Neutrophil percentageOrdered By: Renard Burgos on 08-26-2024 Neutrophils/100 WBC (Bld) 65.9 % 47-70 [facility] Nucleated red blood cell per centageOrdered By: Renard Burgos on 08-26-2024 Nucleated RBC/100 WBC (Bld) [Ratio] 0 % 0-5 [facility] Platelet countOrdered By: Garrick Bhatt on 08-26-2024 Platelets (Bld) [#/Vol] 196 10*3/uL 150-450 [facility] RBC Auto (Bld) [#/Vol]Ordere d By: Renard Burgos on 08-26-2024 RBC (Bld) [#/Vol] 4.64 10*6/uL 4.6-6.2 [facility] White blood cell (WBC) count Ordered By: Renard Burgos on 08-26-2024 WBC (Bld) [#/Vol] 8.6 10*3/uL 4.4-11.0 [facility] Anion gap in Serum or Plasma Ordered By: Renard Burgos on 08-23-2024 Anion gap [Moles/Vol] 10 mmol/L 5-15 [facility] BUN/creatinine ratioOrdered By: Renard Burgos on 08-23-2024 Urea nitrogen/Creatinine [Mass ratio] 21.4 mg/mg High 10-20 [facility] Bilirubin, totalOrdered By: Renard Burgos on 08-23-2024 Bilirubin [Mass/Vol] 0.35 mg/dL 0.00-1.30 [facility] CBC-Complete Blood Cnt No Di ffon 08-23-2024 Erythrocyte distribution width (RBC) [Ratio] 12.7 % Normal 11.6-14.6 [facility] Comment on above: Order Comment: 109.1 Performed By: #### L 500.4050, L500.4100, L100.0500 ####[facility] [address] [place], [address] Hematocrit (Bld) [Volume fraction] 42.2 % Normal 40-54 [facility] Comment on above: Order Comment: 109.1 Performed By: #### L 500.4050, L500.4100, L100.0500 ####[facility] [address] [place], [address] Hemoglobin (Bld) [Mass/Vol] 14.0 g/dL Normal 13.0-16.5 [facility] Comment on above: Order Comment: 109.1 Performed By: #### L 500.4050, L500.4100, L100.0500 ####[facility] [address] [place], [address] MCH (RBC) [Entitic mass] 30.0 pg Normal 27.0-32.0 [facility] Comment on above: Order Comment: 109.1 Performed By: #### L 500.4050, L500.4100, L100.0500 ####[facility] [address] [place], [address] MCHC (RBC) [Mass/Vol] 33.2 g/dL Normal 32-36 [facility] Comment on above: Order Comment: 109.1 Performed By: #### L 500.4050, L500.4100, L100.0500 ####[facility] [address] [place], [address] MCV (RBC) [Entitic vol] 90.6 fL Normal 80-94 [facility] Comment on above: Order Comment: 109.1 Performed By: #### L 500.4050, L500.4100, L100.0500 ####[facility] [address] [place], [address] Platelet mean volume (Bld) [Entitic vol] 11.3 fL Normal 6.2-12.0 [facility] Comment on above: Order Comment: 109.1 Performed By: #### L 500.4050, L500.4100, L100.0500 ####[facility] [address] [place], [address] Platelets (Bld) [#/Vol] 184 10*3/uL Normal 150-450 [facility] Comment on above: Order Comment: 109.1 Performed By: #### L 500.4050, L500.4100, L100.0500 ####[facility] [address] [place], [address] RBC (Bld) [#/Vol] 4.66 10*6/uL Normal 4.6-6.2 [facility] Comment on above: Order Comment: 109.1 Performed By: #### L 500.4050, L500.4100, L100.0500 ####[facility] [address] [place], [address] RDW SD 41.8 fl Normal 35.1-43.9 [facility] Comment on above: Order Comment: 109.1 Performed By: #### L 500.4050, L500.4100, L100.0500 ####[facility] [address] [place], [address] WBC (Bld) [#/Vol] 8.6 10*3/uL Normal 4.4-11.0 [facility] Comment on above: Order Comment: 109.1 Performed By: #### L 500.4050, L500.4100, L100.0500 ####[facility] [address] [place], [address] Calculated very low density lipoprotein (VLDL) cholesterol measurementOrdered By: Renard Burgos on 08-23-2024 Calculated very low density lipoprotein (VLDL) cholesterol measurement 40 mg/dL 5-40 [facility] Carbon dioxide, total [Moles /volume] in Central venous bloodOrdered By: Renard Burgos on 08-23-2024 CO2 [Moles/Vol] 24.9 mmol/L 21.0-32.0 [facility] Chloride assayOrdered By: Garrick Bhatt on 08-23-2024 Chloride [Moles/Vol] 106 mmol/L 98-108 [facility] Comprehensive Metabolic Prof ilon 08-23-2024 Albumin [Mass/Vol] 3.4 g/dL Normal 3.4-4.8 [facility] Comment on above: Order Comment: 109.1 Performed By: #### L 500.4050, L500.4100, L100.0500 ####[facility] [address] [place], [address] Albumin/Globulin [Mass ratio] 1.4 {ratio} Normal 0.9-2.4 [facility] Comment on above: Order Comment: 109.1 Performed By: #### L 500.4050, L500.4100, L100.0500 ####[facility] [address] [place], [address] ALK PHOS 101 U/L Normal 40-129 [facility] Comment on above: Order Comment: 109.1 Performed By: #### L 500.4050, L500.4100, L100.0500 ####[facility] [address] [place], [address] ALT [Catalytic activity/Vol] 13 U/L Normal <=46 [facility] Comment on above: Order Comment: 109.1 Performed By: #### L 500.4050, L500.4100, L100.0500 ####[facility] [address] [place], [address] AST [Catalytic activity/Vol] 17 U/L Normal <=37 [facility] Comment on above: Order Comment: 109.1 Performed By: #### L 500.4050, L500.4100, L100.0500 ####[facility] [address] [place], [address] Bilirubin [Mass/Vol] 0.35 mg/dL Normal 0.00-1.30 [facility] Comment on above: Order Comment: 109.1 Performed By: #### L 500.4050, L500.4100, L100.0500 ####[facility] [address] [place], [address] BUN/CRE 21.4 RATIO High 10-20 [facility] Comment on above: Order Comment: 109.1 Performed By: #### L 500.4050, L500.4100, L100.0500 ####[facility] [address] [place], [address] Calcium [Mass/Vol] 8.2 mg/dL Normal 7.6-11.0 [facility] Comment on above: Order Comment: 109.1 Performed By: #### L 500.4050, L500.4100, L100.0500 ####[facility] [address] [place], [address] Chloride [Moles/Vol] 106 mmol/L Normal 98-108 [facility] Comment on above: Order Comment: 109.1 Performed By: #### L 500.4050, L500.4100, L100.0500 ####[facility] [address] [place], [address] CO2 [Moles/Vol] 24.9 mmol/L Normal 21.0-32.0 [facility] Comment on above: Order Comment: 109.1 Performed By: #### L 500.4050, L500.4100, L100.0500 ####[facility] [address] [place], [address] Creatinine [Mass/Vol] 0.63 mg/dL Low 0.70-1.20 [facility] Comment on above: Order Comment: 109.1 Performed By: #### L 500.4050, L500.4100, L100.0500 ####[facility] [address] [place], [address] GAP 10 Normal 5-15 [facility] Comment on above: Order Comment: 109.1 Performed By: #### L 500.4050, L500.4100, L100.0500 ####[facility] [address] [place], [address] GFR/1.73 sq M.predicted among non-blacks MDRD (S/P/Bld) [Vol rate/Area] 104 mL/min/{1.73_m2} Normal >60 [facility] Comment on above: Order Comment: 109.1 Result Comment: mL/m in/1.73m2 CKD-EPI Creatinine Equation (2020) Performed By: #### L 500.4050, L500.4100, L100.0500 ####[facility] [address] [place], [address] Globulin (S) [Mass/Vol] 2.3 g/dL Normal 2.2-4.2 [facility] Comment on above: Order Comment: 109.1 Performed By: #### L 500.4050, L500.4100, L100.0500 ####[facility] [address] [place], [address] Glucose [Mass/Vol] 116 mg/dL High 70-99 [facility] Comment on above: Order Comment: 109.1 Performed By: #### L 500.4050, L500.4100, L100.0500 ####[facility] [address] [place], [address] Potassium [Moles/Vol] 3.8 mmol/L Normal 3.3-5.1 [facility] Comment on above: Order Comment: 109.1 Performed By: #### L 500.4050, L500.4100, L100.0500 ####[facility] [address] [place], [address] Sodium [Moles/Vol] 141 mmol/L Normal 133-145 [facility] Comment on above: Order Comment: 109.1 Performed By: #### L 500.4050, L500.4100, L100.0500 ####[facility] [address] [place], [address] T PROT 5.7 g/dL Low 5.9-8.4 [facility] Comment on above: Order Comment: 109.1 Performed By: #### L 500.4050, L500.4100, L100.0500 ####[facility] [address] [place], [address] Urea nitrogen [Mass/Vol] 14 mg/dL Normal 4-19 [facility] Comment on above: Order Comment: 109.1 Performed By: #### L 500.4050, L500.4100, L100.0500 ####[facility] [address] [place], [address] Erythrocyte distribution wid th ratioOrdered By: Renard Burgos on 08-23-2024 Erythrocyte distribution width (RBC) [Ratio] 12.7 % 11.6-14.6 [facility] Erythrocyte distribution wid th standard deviationOrdered By: Renard Burgos on 08-23-2024 Erythrocyte distribution width (RBC) [Ratio] 41.8 fl 35.1-43.9 [facility] Glomerular filtration rate ( GFR) estimation/1.73 sq m using serum, plasma, or whole bOrdered By: Renard Burgos on 08-23-2024 GFR/1.73 sq M.predicted among non-blacks MDRD (S/P/Bld) [Vol rate/Area] 104 mL/min/{1.73_m2} >60 [facility] Comment on above: mL/min/1.73m2 CKD-EP I Creatinine Equation (2020) Hematocrit Auto (Bld) [Volum e fraction]Ordered By: Renard Burgos on 08-23-2024 Hematocrit (Bld) [Volume fraction] 42.2 % 40-54 [facility] Hemoglobin measurementOrdere d By: Renard Burgos on 08-23-2024 Hemoglobin (Bld) [Mass/Vol] 14.0 g/dL 13.0-16.5 [facility] LDL calc ser/plasOrdered By: Renard Burgos on 08-23-2024 Cholesterol in LDL [Mass/Vol] 62 mg/dL [facility] Comment on above: Xpkkpgcmcg=698-667 m g/dL & Higher Jemb=833 mg/dL or greater Laboratory - Chemistry and C hemistry - challengeOrdered By: Renard Burgos on 08-23-2024 AST [Catalytic activity/Vol] 17 U/L <38 [facility] Lipid Profileon 08-23-2024 CHOL:HDL 5.32 Normal [facility] Comment on above: Order Comment: 109.1 Performed By: #### L 500.4050, L500.4100, L100.0500 ####[facility] [address] [place], [address] Cholesterol [Mass/Vol] 125 mg/dL Normal <=200 [facility] Comment on above: Order Comment: 109.1 Result Comment: Chol esterol level, Desirable <200 mg/dLBorderline high cholesterol 200-239 mg/dLHigh cholesterol >=240 mg/dLRecommendations of the NCEP Adult Treatment Panel for thefollowing risk-cutoff thresholds for the [place] American[place]. Performed By: #### L 500.4050, L500.4100, L100.0500 ####[facility] [address] [place], [address] Cholesterol in HDL [Mass/Vol] 24 mg/dL Low [facility] Comment on above: Order Comment: 109.1 Result Comment: Lucy onal Cholesterol Education Program (NCEP) guidelines:<40 mg/dL: Low HDL-cholesterol (major risk factor for CHD)>= 60 mg/dL: High HDL-cholesterol (negative risk factor forCHD)HDL-cholesterol is affected by a number of factors, e.g.smoking, exercise, hormones, sex and age. Performed By: #### L 500.4050, L500.4100, L100.0500 ####[facility] [address] [place], [address] Cholesterol in LDL [Mass/Vol] 62 mg/dL Normal [facility] Comment on above: Order Comment: 109.1 Result Comment: Bord mkqcew=005-771 mg/dL Higher Yabj=733 mg/dL or greater Performed By: #### L 500.4050, L500.4100, L100.0500 ####[facility] [address] [place], [address] Cholesterol in VLDL [Mass/Vol] 40 mg/dL Normal 5-40 [facility] Comment on above: Order Comment: 109.1 Performed By: #### L 500.4050, L500.4100, L100.0500 ####[facility] [address] [place], [address] Triglyceride [Mass/Vol] 198 mg/dL Normal [facility] Comment on above: Order Comment: 109.1 Result Comment: The drugs N-Acetylcysteine and Metamizole may falselydepress this assay.Normal range: <150 mg/dLBorderline High: 150-199 mg/dLHigh: 200-499 mg/dLVery High: >500 mg/dL Performed By: #### L 500.4050, L500.4100, L100.0500 ####[facility] [address] [place], [address] MCV (mean corpuscular volume ) determinationOrdered By: Renard Burgos on 08-23-2024 MCV (RBC) [Entitic vol] 90.6 fL 80-94 [facility] Mean corpuscular hemoglobin (MCH) determinationOrdered By: Renard Burgos on 08-23-2024 MCH (RBC) [Entitic mass] 30.0 pg 27.0-32.0 [facility] Mean corpuscular hemoglobin concentration (MCHC) determinationOrdered By: Renard Burgos on 08-23-2024 MCHC (RBC) [Mass/Vol] 33.2 g/dL 32-36 [facility] Mean platelet volume determi nationOrdered By: Renard Burgos on 08-23-2024 Platelet mean volume (Bld) [Entitic vol] 11.3 fL 6.2-12.0 [facility] Platelet countOrdered By: Garrick Bhatt on 08-23-2024 Platelets (Bld) [#/Vol] 184 10*3/uL 150-450 [facility] Potassium measurement (mass/ volume)Ordered By: Renard Burgos on 08-23-2024 Potassium (Unsp spec) [Mass/Vol] 3.8 mmol/L 3.3-5.1 [facility] RBC Auto (Bld) [#/Vol]Ordere d By: Renard Burgos on 08-23-2024 RBC (Bld) [#/Vol] 4.66 10*6/uL 4.6-6.2 [facility] Screening total cholesterol/ high density lipoprotein (HDL) cholesterol ratioOrdered By: Renard Burgos on 08-23-2024 Cholesterol.total/Cecilia sterol in HDL [Mass ratio] 5.32 {ratio} [facility] Serum creatinine measurement (mass/volume)Ordered By: Renard Burgos on 08-23-2024 Creatinine [Mass/Vol] 0.63 mg/dL Low 0.70-1.20 [facility] Serum globulin measurementOr dered By: Renard Burgos on 08-23-2024 Globulin (S) [Mass/Vol] 2.3 g/dL 2.2-4.2 [facility] Serum glucose measurement (m ass/volume)Ordered By: Renard Burgos on 08-23-2024 Glucose [Mass/Vol] 116 mg/dL High 70-99 [facility] Serum or plasma alanine kay otransferase (ALT) measurementOrdered By: Renard Burgos on 08-23-2024 ALT [Catalytic activity/Vol] 13 U/L <47 [facility] Serum or plasma albumin gordy urement (mass/volume)Ordered By: Renard Burgos on 08-23-2024 Albumin [Mass/Vol] 3.4 g/dL 3.4-4.8 [facility] Serum or plasma albumin/glob ulin mass ratioOrdered By: Renard Burgos on 08-23-2024 Albumin/Globulin [Mass ratio] 1.4 {ratio} 0.9-2.4 [facility] Serum or plasma alkaline trace sphatase measurementOrdered By: Renard Burgos on 08-23-2024 ALP [Catalytic activity/Vol] 101 U/L 40-129 [facility] Serum or plasma calcium gordy urement (mass/volume)Ordered By: Renard Burgos on 08-23-2024 Calcium [Mass/Vol] 8.2 mg/dL 7.6-11.0 [facility] Serum or plasma cholesterol in HDL measurement (mass/volume)Ordered By: Renard Burgos on 08-23-2024 Cholesterol in HDL [Mass/Vol] 24 mg/dL Low >40 [facility] Comment on above: National Cholesterol Education Program (NCEP) guidelines:<40 mg/dL: Low HDL-cholesterol (major risk factor for CHD)>= 60 mg/dL: High HDL-cholesterol (negative risk factor for CHD)HDL-cholesterol is affected by a number of factors, e.g. smoking, exercise, hormones, sex and age. Serum or plasma cholesterol measurement (mass/volume)Ordered By: Renard Burgos on 08-23-2024 Cholesterol [Mass/Vol] 125 mg/dL <201 [facility] Comment on above: Cholesterol level, D esirable <200 mg/dLBorderline high cholesterol 200-239 mg/dLHigh cholesterol >=240 mg/dLRecommendations of the NCEP Adult Treatment Panel for the following risk-cutoff thresholds for the [place] population. Serum or plasma urea nitroge n measurement (mass/volume)Ordered By: Renard Burgos on 08-23-2024 Urea nitrogen [Mass/Vol] 14 mg/dL 4-19 [facility] Sodium levelOrdered By: Lamine Burgos on 08-23-2024 Sodium [Moles/Vol] 141 mmol/L 133-145 [facility] Total proteinOrdered By: Lyubov Burgos on 08-23-2024 Protein [Mass/Vol] 5.7 g/dL Low 5.9-8.4 [facility] Triglycerides measurementOrd ered By: Renard Burgos on 08-23-2024 Triglyceride [Mass/Vol] 198 mg/dL <199 [facility] Comment on above: The drugs N-Acetylcy steine and Metamizole may falsely depress this assay. Normal range: <150 mg/dLBorderline High: 150-199 mg/dLHigh: 200-499 mg/dLVery High: >500 mg/dL White blood cell (WBC) count Ordered By: Renard Burgos on 08-23-2024 WBC (Bld) [#/Vol] 8.6 10*3/uL 4.4-11.0 [facility] Absolute lymphocyte countOrd ered By: Renard Burgos on 08-19-2024 Lymphocytes Auto (Unsp spec) [#/Vol] 1.97 10*3/uL 0.83-4.51 [facility] Absolute neutrophil countOrd ered By: Renard Burgos on 08-19-2024 Neutrophils (Bld) [#/Vol] 5.0 10*3/uL 2.0-7.7 [facility] Automated lymphocyte count a s percentage of total leukocytesOrdered By: Renard Burgos on 08-19-2024 Lymphocytes/100 WBC Auto (Unsp spec) 25.4 % 19-41 [facility] Basophil percentageOrdered B y: Renard Burgos on 08-19-2024 Basophils/100 WBC (Bld) 0.5 % 0-1 [facility] CBC W/Diff, Automatedon 07-31 Absolute Lymph 1.97 X10 3/uL Normal 0.83-4.51 [facility] Comment on above: Order Comment: 109 Performed By: #### L 100.0100 ####[facility] [address] [place], [address] Absolute Neut 5.0 X10 3/uL Normal 2.0-7.7 [facility] Comment on above: Order Comment: 109 Performed By: #### L 100.0100 ####[facility] [address] [place], [address] Basophils/100 WBC (Bld) 0.5 % Normal 0-1 [facility] Comment on above: Order Comment: 109 Performed By: #### L 100.0100 ####[facility] [address] [place], [address] Eosinophils/100 WBC (Bld) 1.0 % Normal 0-5 [facility] Comment on above: Order Comment: 109 Performed By: #### L 100.0100 ####[facility] [address] [place], [address] Erythrocyte distribution width (RBC) [Ratio] 12.7 % Normal 11.6-14.6 [facility] Comment on above: Order Comment: 109 Performed By: #### L 100.0100 ####[facility] [address] [place], [address] Hematocrit (Bld) [Volume fraction] 41.0 % Normal 40-54 [facility] Comment on above: Order Comment: 109 Performed By: #### L 100.0100 ####[facility] [address] [place], [address] Hemoglobin (Bld) [Mass/Vol] 13.6 g/dL Normal 13.0-16.5 [facility] Comment on above: Order Comment: 109 Performed By: #### L 100.0100 ####[facility] [address] [place], [address] IG% 0.400 Normal 0.0-0.9 [facility] Comment on above: Order Comment: 109 Result Comment: IG% - Immature Granulocytes (promyelocytes, myelocytes andmetamyelocytes) > 1% indicates that a LEFT SHIFT is Present. Performed By: #### L 100.0100 ####[facility] [address] [place], [address] Lymphocytes/100 WBC (Bld) 25.4 % Normal 19-41 [facility] Comment on above: Order Comment: 109 Performed By: #### L 100.0100 ####[facility] [address] [place], [address] MCH (RBC) [Entitic mass] 30.2 pg Normal 27.0-32.0 [facility] Comment on above: Order Comment: 109 Performed By: #### L 100.0100 ####[facility] [address] [place], [address] MCHC (RBC) [Mass/Vol] 33.2 g/dL Normal 32-36 [facility] Comment on above: Order Comment: 109 Performed By: #### L 100.0100 ####[facility] [address] [place], [address] MCV (RBC) [Entitic vol] 91.1 fL Normal 80-94 [facility] Comment on above: Order Comment: 109 Performed By: #### L 100.0100 ####[facility] [address] [place], [address] Monocytes/100 WBC (Bld) 8.2 % Normal 0-10 [facility] Comment on above: Order Comment: 109 Performed By: #### L 100.0100 ####[facility] [address] [place], [address] Neutrophils/100 WBC (Bld) 64.5 % Normal 47-70 [facility] Comment on above: Order Comment: 109 Performed By: #### L 100.0100 ####[facility] [address] [place], [address] Nucleated RBC (Bld) [#/Vol] 0 10*3/uL Normal 0-5 [facility] Comment on above: Order Comment: 109 Performed By: #### L 100.0100 ####[facility] [address] [place], [address] Platelet mean volume (Bld) [Entitic vol] 11.1 fL Normal 6.2-12.0 [facility] Comment on above: Order Comment: 109 Performed By: #### L 100.0100 ####[facility] [address] [place], [address] Platelets (Bld) [#/Vol] 207 10*3/uL Normal 150-450 [facility] Comment on above: Order Comment: 109 Performed By: #### L 100.0100 ####[facility] [address] [place], [address] RBC (Bld) [#/Vol] 4.50 10*6/uL Low 4.6-6.2 [facility] Comment on above: Order Comment: 109 Performed By: #### L 100.0100 ####[facility] [address] [place], [address] RDW SD 42.0 fl Normal 35.1-43.9 [facility] Comment on above: Order Comment: 109 Performed By: #### L 100.0100 ####[facility] [address] [place], [address] WBC (Bld) [#/Vol] 7.8 10*3/uL Normal 4.4-11.0 [facility] Comment on above: Order Comment: 109 Performed By: #### L 100.0100 ####[facility] [address] [place], [address] Eosinophil percentageOrdered By: Renard Burgos on 08-19-2024 Eosinophils/100 WBC (Bld) 1.0 % 0-5 [facility] Erythrocyte distribution wid th ratioOrdered By: Renard Burgos on 08-19-2024 Erythrocyte distribution width (RBC) [Ratio] 12.7 % 11.6-14.6 [facility] Erythrocyte distribution wid th standard deviationOrdered By: Renard Burgos on 08-19-2024 Erythrocyte distribution width (RBC) [Ratio] 42.0 fl 35.1-43.9 [facility] Hematocrit Auto (Bld) [Volum e fraction]Ordered By: Renard Burgos on 08-19-2024 Hematocrit (Bld) [Volume fraction] 41.0 % 40-54 [facility] Hemoglobin measurementOrdere d By: Renard Burgos on 08-19-2024 Hemoglobin (Bld) [Mass/Vol] 13.6 g/dL 13.0-16.5 [facility] Immature granulocytes/100 WB C Auto (Bld)Ordered By: Renard Burgos on 08-19-2024 Immature granulocytes/100 WBC (Bld) 0.400 % 0.0-0.9 [facility] Comment on above: IG% - Immature Granu locytes (promyelocytes, myelocytes and metamyelocytes) > 1% indicates that a LEFT SHIFT is Present. MCV (mean corpuscular volume ) determinationOrdered By: Renard Burgos on 08-19-2024 MCV (RBC) [Entitic vol] 91.1 fL 80-94 [facility] Mean corpuscular hemoglobin (MCH) determinationOrdered By: Renard Burgos on 08-19-2024 MCH (RBC) [Entitic mass] 30.2 pg 27.0-32.0 [facility] Mean corpuscular hemoglobin concentration (MCHC) determinationOrdered By: Renard Burgos on 08-19-2024 MCHC (RBC) [Mass/Vol] 33.2 g/dL 32-36 [facility] Mean platelet volume determi nationOrdered By: Renard Burgos on 08-19-2024 Platelet mean volume (Bld) [Entitic vol] 11.1 fL 6.2-12.0 [facility] Monocyte percentageOrdered B y: Renard Burgos on 08-19-2024 Monocytes/100 WBC (Bld) 8.2 % 0-10 [facility] Neutrophil percentageOrdered By: Renard Burgos on 08-19-2024 Neutrophils/100 WBC (Bld) 64.5 % 47-70 [facility] Nucleated red blood cell per centageOrdered By: Renard Burgos on 08-19-2024 Nucleated RBC/100 WBC (Bld) [Ratio] 0 % 0-5 [facility] Platelet countOrdered By: Garrick Bhatt on 08-19-2024 Platelets (Bld) [#/Vol] 207 10*3/uL 150-450 [facility] RBC Auto (Bld) [#/Vol]Ordere d By: Renard Burgos on 08-19-2024 RBC (Bld) [#/Vol] 4.50 10*6/uL Low 4.6-6.2 [facility] White blood cell (WBC) count Ordered By: Renard Burgos on 08-19-2024 WBC (Bld) [#/Vol] 7.8 10*3/uL 4.4-11.0 [facility] Absolute lymphocyte countOrd ered By: Renard Burgos on 08-12-2024 Lymphocytes Auto (Unsp spec) [#/Vol] 2.09 10*3/uL 0.83-4.51 [facility] Absolute neutrophil countOrd ered By: Renard Burgos on 08-12-2024 Neutrophils (Bld) [#/Vol] 5.0 10*3/uL 2.0-7.7 [facility] Automated lymphocyte count a s percentage of total leukocytesOrdered By: Renard Burgos on 08-12-2024 Lymphocytes/100 WBC Auto (Unsp spec) 27.0 % 19-41 [facility] Basophil percentageOrdered B y: Renard Burgos on 08-12-2024 Basophils/100 WBC (Bld) 0.5 % 0-1 [facility] CBC W/Diff, Automatedon 07-30 Absolute Lymph 2.09 X10 3/uL Normal 0.83-4.51 [facility] Comment on above: Order Comment: 109.1 Performed By: #### L 100.0100 ####[facility] [address] [place], [place], [address] Absolute Neut 5.0 X10 3/uL Normal 2.0-7.7 [facility] Comment on above: Order Comment: 109.1 Performed By: #### L 100.0100 ####[facility] [address] [place], [address] Basophils/100 WBC (Bld) 0.5 % Normal 0-1 [facility] Comment on above: Order Comment: 109.1 Performed By: #### L 100.0100 ####[facility] [address] [place], [address] Eosinophils/100 WBC (Bld) 0.9 % Normal 0-5 [facility] Comment on above: Order Comment: 109.1 Performed By: #### L 100.0100 ####[facility] [address] [place], [address] Erythrocyte distribution width (RBC) [Ratio] 12.7 % Normal 11.6-14.6 [facility] Comment on above: Order Comment: 109.1 Performed By: #### L 100.0100 ####[facility] [address] [place], [address] Hematocrit (Bld) [Volume fraction] 41.9 % Normal 40-54 [facility] Comment on above: Order Comment: 109.1 Performed By: #### L 100.0100 ####[facility] [address] [place], [address] Hemoglobin (Bld) [Mass/Vol] 14.1 g/dL Normal 13.0-16.5 [facility] Comment on above: Order Comment: 109.1 Performed By: #### L 100.0100 ####[facility] [address] [place], [address] IG% 0.300 Normal 0.0-0.9 [facility] Comment on above: Order Comment: 109.1 Result Comment: IG% - Immature Granulocytes (promyelocytes, myelocytes andmetamyelocytes) > 1% indicates that a LEFT SHIFT is Present. Performed By: #### L 100.0100 ####[facility] [address] [place], [address] Lymphocytes/100 WBC (Bld) 27.0 % Normal 19-41 [facility] Comment on above: Order Comment: 109.1 Performed By: #### L 100.0100 ####[facility] [address] [place], [address] MCH (RBC) [Entitic mass] 30.3 pg Normal 27.0-32.0 [facility] Comment on above: Order Comment: 109.1 Performed By: #### L 100.0100 ####[facility] [address] [place], [address] MCHC (RBC) [Mass/Vol] 33.7 g/dL Normal 32-36 [facility] Comment on above: Order Comment: 109.1 Performed By: #### L 100.0100 ####[facility] [address] [place], [address] MCV (RBC) [Entitic vol] 90.1 fL Normal 80-94 [facility] Comment on above: Order Comment: 109.1 Performed By: #### L 100.0100 ####[facility] [address] [place], [address] Monocytes/100 WBC (Bld) 7.1 % Normal 0-10 [facility] Comment on above: Order Comment: 109.1 Performed By: #### L 100.0100 ####[facility] [address] [place], [address] Neutrophils/100 WBC (Bld) 64.2 % Normal 47-70 [facility] Comment on above: Order Comment: 109.1 Performed By: #### L 100.0100 ####[facility] [address] [place], [address] Nucleated RBC (Bld) [#/Vol] 0 10*3/uL Normal 0-5 [facility] Comment on above: Order Comment: 109.1 Performed By: #### L 100.0100 ####[facility] [address] [place], [address] Platelet mean volume (Bld) [Entitic vol] 11.2 fL Normal 6.2-12.0 [facility] Comment on above: Order Comment: 109.1 Performed By: #### L 100.0100 ####[facility] [address] [place], [address] Platelets (Bld) [#/Vol] 188 10*3/uL Normal 150-450 [facility] Comment on above: Order Comment: 109.1 Performed By: #### L 100.0100 ####[facility] [address] [place], [address] RBC (Bld) [#/Vol] 4.65 10*6/uL Normal 4.6-6.2 [facility] Comment on above: Order Comment: 109.1 Performed By: #### L 100.0100 ####[facility] [address] [place], [address] RDW SD 41.6 fl Normal 35.1-43.9 [facility] Comment on above: Order Comment: 109.1 Performed By: #### L 100.0100 ####[facility] [address] [place], [address] WBC (Bld) [#/Vol] 7.8 10*3/uL Normal 4.4-11.0 [facility] Comment on above: Order Comment: 109.1 Performed By: #### L 100.0100 ####[facility] [address] [place], [address] Eosinophil percentageOrdered By: Renard Burgos on 08-12-2024 Eosinophils/100 WBC (Bld) 0.9 % 0-5 [facility] Erythrocyte distribution wid th (RBC) [Ratio]Ordered By: Renard Burgos on 08-12-2024 Erythrocyte distribution width (RBC) [Entitic vol] 41.6 fL 35.1-43.9 [facility] Erythrocyte distribution wid th ratioOrdered By: Renard Burgos on 08-12-2024 Erythrocyte distribution width (RBC) [Ratio] 12.7 % 11.6-14.6 [facility] Erythrocyte distribution wid th standard deviationOrdered By: Renard Burgos on 08-12-2024 Erythrocyte distribution width (RBC) [Ratio] 41.6 fl 35.1-43.9 [facility] Hematocrit Auto (Bld) [Volum e fraction]Ordered By: Renard Burgos on 08-12-2024 Hematocrit (Bld) [Volume fraction] 41.9 % 40-54 [facility] Hemoglobin measurementOrdere d By: Renard Burgos on 08-12-2024 Hemoglobin (Bld) [Mass/Vol] 14.1 g/dL 13.0-16.5 [facility] Immature granulocytes/100 WB C Auto (Bld)Ordered By: Renard Burgos on 08-12-2024 Immature granulocytes/100 WBC (Bld) 0.300 % 0.0-0.9 [facility] Comment on above: IG% - Immature Granu locytes (promyelocytes, myelocytes and metamyelocytes) > 1% indicates that a LEFT SHIFT is Present. Lymphocytes Auto (Unsp spec) [#/Vol]Ordered By: Renard Burgos on 08-12-2024 Lymphocytes (Bld) [#/Vol] 2.09 10*3/uL 0.83-4.51 [facility] Lymphocytes/100 WBC Auto (Un sp spec)Ordered By: Renard Burgos on 08-12-2024 Lymphocytes/100 WBC (Bld) 27.0 % 19-41 [facility] MCV (mean corpuscular volume ) determinationOrdered By: Renard Burgos on 08-12-2024 MCV (RBC) [Entitic vol] 90.1 fL 80-94 [facility] Mean corpuscular hemoglobin (MCH) determinationOrdered By: Renard Burgos on 08-12-2024 MCH (RBC) [Entitic mass] 30.3 pg 27.0-32.0 [facility] Mean corpuscular hemoglobin concentration (MCHC) determinationOrdered By: Renard Burgos on 08-12-2024 MCHC (RBC) [Mass/Vol] 33.7 g/dL 32-36 [facility] Mean platelet volume determi nationOrdered By: Renard Burgos on 08-12-2024 Platelet mean volume (Bld) [Entitic vol] 11.2 fL 6.2-12.0 [facility] Monocyte percentageOrdered B y: Renard Burgos on 08-12-2024 Monocytes/100 WBC (Bld) 7.1 % 0-10 [facility] Neutrophil percentageOrdered By: Renard Burgos on 08-12-2024 Neutrophils/100 WBC (Bld) 64.2 % 47-70 [facility] Nucleated red blood cell per centageOrdered By: Renard Burgos on 08-12-2024 Nucleated RBC/100 WBC (Bld) [Ratio] 0 % 0-5 [facility] Platelet countOrdered By: Garrick Bhatt on 08-12-2024 Platelets (Bld) [#/Vol] 188 10*3/uL 150-450 [facility] RBC Auto (Bld) [#/Vol]Ordere d By: Renard Burgos on 08-12-2024 RBC (Bld) [#/Vol] 4.65 10*6/uL 4.6-6.2 [facility] White blood cell (WBC) count Ordered By: Renard Burgos on 08-12-2024 WBC (Bld) [#/Vol] 7.8 10*3/uL 4.4-11.0 [facility] Absolute lymphocyte countOrd ered By: Renard Burgos on 08-05-2024 Lymphocytes Auto (Unsp spec) [#/Vol] 2.31 10*3/uL 0.83-4.51 [facility] Absolute neutrophil countOrd ered By: Renard Burgos on 08-05-2024 Neutrophils (Bld) [#/Vol] 5.4 10*3/uL 2.0-7.7 [facility] Automated lymphocyte count a s percentage of total leukocytesOrdered By: Renard Burgos on 08-05-2024 Lymphocytes/100 WBC Auto (Unsp spec) 26.9 % 19-41 [facility] Basophil percentageOrdered B y: Renard Burgos on 08-05-2024 Basophils/100 WBC (Bld) 0.6 % 0-1 [facility] CBC W/Diff, Automatedon 04-0 7-2024 Absolute Lymph 2.31 X10 3/uL Normal 0.83-4.51 [facility] Comment on above: Order Comment: 109.1 Performed By: #### L 100.0100 ####[facility] [address] [place], [address] Absolute Neut 5.4 X10 3/uL Normal 2.0-7.7 [facility] Comment on above: Order Comment: 109.1 Performed By: #### L 100.0100 ####[facility] [address] [place], [address] Basophils/100 WBC (Bld) 0.6 % Normal 0-1 [facility] Comment on above: Order Comment: 109.1 Performed By: #### L 100.0100 ####[facility] [address] [place], [address] Eosinophils/100 WBC (Bld) 0.8 % Normal 0-5 [facility] Comment on above: Order Comment: 109.1 Performed By: #### L 100.0100 ####[facility] [address] [place], [address] Erythrocyte distribution width (RBC) [Ratio] 12.7 % Normal 11.6-14.6 [facility] Comment on above: Order Comment: 109.1 Performed By: #### L 100.0100 ####[facility] [address] [place], [address] Hematocrit (Bld) [Volume fraction] 41.6 % Normal 40-54 [facility] Comment on above: Order Comment: 109.1 Performed By: #### L 100.0100 ####[facility] [address] [place], [address] Hemoglobin (Bld) [Mass/Vol] 13.7 g/dL Normal 13.0-16.5 [facility] Comment on above: Order Comment: 109.1 Performed By: #### L 100.0100 ####[facility] [address] [place], [address] IG% 0.300 Normal 0.0-0.9 [facility] Comment on above: Order Comment: 109.1 Result Comment: IG% - Immature Granulocytes (promyelocytes, myelocytes andmetamyelocytes) > 1% indicates that a LEFT SHIFT is Present. Performed By: #### L 100.0100 ####[facility] [address] [place], [address] Lymphocytes/100 WBC (Bld) 26.9 % Normal 19-41 [facility] Comment on above: Order Comment: 109.1 Performed By: #### L 100.0100 ####[facility] [address] [place], [address] MCH (RBC) [Entitic mass] 30.1 pg Normal 27.0-32.0 [facility] Comment on above: Order Comment: 109.1 Performed By: #### L 100.0100 ####[facility] [address] [place], [address] MCHC (RBC) [Mass/Vol] 32.9 g/dL Normal 32-36 [facility] Comment on above: Order Comment: 109.1 Performed By: #### L 100.0100 ####[facility] [address] [place], [address] MCV (RBC) [Entitic vol] 91.4 fL Normal 80-94 [facility] Comment on above: Order Comment: 109.1 Performed By: #### L 100.0100 ####[facility] [address] [place], [address] Monocytes/100 WBC (Bld) 8.3 % Normal 0-10 [facility] Comment on above: Order Comment: 109.1 Performed By: #### L 100.0100 ####[facility] [address] [place], [address] Neutrophils/100 WBC (Bld) 63.1 % Normal 47-70 [facility] Comment on above: Order Comment: 109.1 Performed By: #### L 100.0100 ####[facility] [address] [place], [address] Nucleated RBC (Bld) [#/Vol] 0 10*3/uL Normal 0-5 [facility] Comment on above: Order Comment: 109.1 Performed By: #### L 100.0100 ####[facility] [address] [place], [address] Platelet mean volume (Bld) [Entitic vol] 11.1 fL Normal 6.2-12.0 [facility] Comment on above: Order Comment: 109.1 Performed By: #### L 100.0100 ####[facility] [address] [place], [address] Platelets (Bld) [#/Vol] 199 10*3/uL Normal 150-450 [facility] Comment on above: Order Comment: 109.1 Performed By: #### L 100.0100 ####[facility] [address] [place], [address] RBC (Bld) [#/Vol] 4.55 10*6/uL Low 4.6-6.2 [facility] Comment on above: Order Comment: 109.1 Performed By: #### L 100.0100 ####[facility] [address] [place], [address] RDW SD 42.5 fl Normal 35.1-43.9 [facility] Comment on above: Order Comment: 109.1 Performed By: #### L 100.0100 ####[facility] [address] [place], [address] WBC (Bld) [#/Vol] 8.6 10*3/uL Normal 4.4-11.0 [facility] Comment on above: Order Comment: 109.1 Performed By: #### L 100.0100 ####[facility] [address] [place], [address] Eosinophil percentageOrdered By: Renard Burgos on 08-05-2024 Eosinophils/100 WBC (Bld) 0.8 % 0-5 [facility] Erythrocyte distribution wid th (RBC) [Ratio]Ordered By: Renard Burgos on 08-05-2024 Erythrocyte distribution width (RBC) [Entitic vol] 42.5 fL 35.1-43.9 [facility] Erythrocyte distribution wid th ratioOrdered By: Renard Burgos on 08-05-2024 Erythrocyte distribution width (RBC) [Ratio] 12.7 % 11.6-14.6 [facility] Erythrocyte distribution wid th standard deviationOrdered By: Renard Burgos on 08-05-2024 Erythrocyte distribution width (RBC) [Ratio] 42.5 fl 35.1-43.9 [facility] Hematocrit Auto (Bld) [Volum e fraction]Ordered By: Renard Burgos on 08-05-2024 Hematocrit (Bld) [Volume fraction] 41.6 % 40-54 [facility] Hemoglobin measurementOrdere d By: Renard Burgos on 08-05-2024 Hemoglobin (Bld) [Mass/Vol] 13.7 g/dL 13.0-16.5 [facility] Immature granulocytes/100 WB C Auto (Bld)Ordered By: Renard Burgos on 08-05-2024 Immature granulocytes/100 WBC (Bld) 0.300 % 0.0-0.9 [facility] Comment on above: IG% - Immature Granu locytes (promyelocytes, myelocytes and metamyelocytes) > 1% indicates that a LEFT SHIFT is Present. Lymphocytes Auto (Unsp spec) [#/Vol]Ordered By: Renard Burgos on 08-05-2024 Lymphocytes (Bld) [#/Vol] 2.31 10*3/uL 0.83-4.51 [facility] Lymphocytes/100 WBC Auto (Un sp spec)Ordered By: Renard Burgos on 08-05-2024 Lymphocytes/100 WBC (Bld) 26.9 % 19-41 [facility] MCV (mean corpuscular volume ) determinationOrdered By: Renard Burgos on 08-05-2024 MCV (RBC) [Entitic vol] 91.4 fL 80-94 [facility] Mean corpuscular hemoglobin (MCH) determinationOrdered By: Renard Burgos on 08-05-2024 MCH (RBC) [Entitic mass] 30.1 pg 27.0-32.0 [facility] Mean corpuscular hemoglobin concentration (MCHC) determinationOrdered By: Renard Burgos on 08-05-2024 MCHC (RBC) [Mass/Vol] 32.9 g/dL 32-36 [facility] Mean platelet volume determi nationOrdered By: Renard Burgos on 08-05-2024 Platelet mean volume (Bld) [Entitic vol] 11.1 fL 6.2-12.0 [facility] Monocyte percentageOrdered B y: Renard Burgos on 08-05-2024 Monocytes/100 WBC (Bld) 8.3 % 0-10 [facility] Neutrophil percentageOrdered By: Renard Burgos on 08-05-2024 Neutrophils/100 WBC (Bld) 63.1 % 47-70 [facility] Nucleated red blood cell per centageOrdered By: Renard Burgos on 08-05-2024 Nucleated RBC/100 WBC (Bld) [Ratio] 0 % 0-5 [facility] Platelet countOrdered By: Garrick Bhatt on 08-05-2024 Platelets (Bld) [#/Vol] 199 10*3/uL 150-450 [facility] RBC Auto (Bld) [#/Vol]Ordere d By: Renard Burgos on 08-05-2024 RBC (Bld) [#/Vol] 4.55 10*6/uL Low 4.6-6.2 [facility] White blood cell (WBC) count Ordered By: Renard Burgos on 08-05-2024 WBC (Bld) [#/Vol] 8.6 10*3/uL 4.4-11.0 [facility] Absolute lymphocyte countOrd ered By: Renard Burgos on 07-29-2024 Lymphocytes Auto (Unsp spec) [#/Vol] 1.93 10*3/uL 0.83-4.51 [facility] Absolute neutrophil countOrd ered By: Renard Hensleyrustam on 07-29-2024 Neutrophils (Bld) [#/Vol] 6.8 10*3/uL 2.0-7.7 [facility] Automated lymphocyte count a s percentage of total leukocytesOrdered By: Renard Burgos on 07-29-2024 Lymphocytes/100 WBC Auto (Unsp spec) 20.2 % 19-41 [facility] Basophil percentageOrdered B y: Renard Burgos on 07-29-2024 Basophils/100 WBC (Bld) 0.5 % 0-1 [facility] CBC W/Diff, Automatedon 07-01 Absolute Lymph 1.93 X10 3/uL Normal 0.83-4.51 [facility] Comment on above: Order Comment: 109-1 Performed By: #### L 100.0100 ####[facility] [address] [place], [address] Absolute Neut 6.8 X10 3/uL Normal 2.0-7.7 [facility] Comment on above: Order Comment: 109-1 Performed By: #### L 100.0100 ####[facility] [address] [place], [address] Basophils/100 WBC (Bld) 0.5 % Normal 0-1 [facility] Comment on above: Order Comment: 109-1 Performed By: #### L 100.0100 ####[facility] [address] [place], [address] Eosinophils/100 WBC (Bld) 0.7 % Normal 0-5 [facility] Comment on above: Order Comment: 109-1 Performed By: #### L 100.0100 ####[facility] [address] [place], [address] Erythrocyte distribution width (RBC) [Ratio] 12.8 % Normal 11.6-14.6 [facility] Comment on above: Order Comment: 109-1 Performed By: #### L 100.0100 ####[facility] [address] [place], [address] Hematocrit (Bld) [Volume fraction] 40.7 % Normal 40-54 [facility] Comment on above: Order Comment: 109-1 Performed By: #### L 100.0100 ####[facility] [address] [place], [address] Hemoglobin (Bld) [Mass/Vol] 13.5 g/dL Normal 13.0-16.5 [facility] Comment on above: Order Comment: 109-1 Performed By: #### L 100.0100 ####[facility] [address] [place], [address] IG% 0.400 Normal 0.0-0.9 [facility] Comment on above: Order Comment: 109-1 Result Comment: IG% - Immature Granulocytes (promyelocytes, myelocytes andmetamyelocytes) > 1% indicates that a LEFT SHIFT is Present. Performed By: #### L 100.0100 ####[facility] [address] [place], [address] Lymphocytes/100 WBC (Bld) 20.2 % Normal 19-41 [facility] Comment on above: Order Comment: 109-1 Performed By: #### L 100.0100 ####[facility] [address] [place], [address] MCH (RBC) [Entitic mass] 29.9 pg Normal 27.0-32.0 [facility] Comment on above: Order Comment: 109-1 Performed By: #### L 100.0100 ####[facility] [address] [place], [address] MCHC (RBC) [Mass/Vol] 33.2 g/dL Normal 32-36 [facility] Comment on above: Order Comment: 109-1 Performed By: #### L 100.0100 ####[facility] [address] [place], [address] MCV (RBC) [Entitic vol] 90.0 fL Normal 80-94 [facility] Comment on above: Order Comment: 109-1 Performed By: #### L 100.0100 ####[facility] [address] [place], [address] Monocytes/100 WBC (Bld) 7.1 % Normal 0-10 [facility] Comment on above: Order Comment: 109-1 Performed By: #### L 100.0100 ####[facility] [address] [place], [address] Neutrophils/100 WBC (Bld) 71.1 % High 47-70 [facility] Comment on above: Order Comment: 109-1 Performed By: #### L 100.0100 ####[facility] [address] [place], [address] Nucleated RBC (Bld) [#/Vol] 0 10*3/uL Normal 0-5 [facility] Comment on above: Order Comment: 109-1 Performed By: #### L 100.0100 ####[facility] [address] [place], [address] Platelet mean volume (Bld) [Entitic vol] 11.2 fL Normal 6.2-12.0 [facility] Comment on above: Order Comment: 109-1 Performed By: #### L 100.0100 ####[facility] [address] [place], [address] Platelets (Bld) [#/Vol] 218 10*3/uL Normal 150-450 [facility] Comment on above: Order Comment: 109-1 Performed By: #### L 100.0100 ####[facility] [address] [place], [address] RBC (Bld) [#/Vol] 4.52 10*6/uL Low 4.6-6.2 [facility] Comment on above: Order Comment: 109-1 Performed By: #### L 100.0100 ####[facility] [address] [place], [address] RDW SD 41.9 fl Normal 35.1-43.9 [facility] Comment on above: Order Comment: 109-1 Performed By: #### L 100.0100 ####[facility] [address] [place], [address] WBC (Bld) [#/Vol] 9.6 10*3/uL Normal 4.4-11.0 [facility] Comment on above: Order Comment: 109-1 Performed By: #### L 100.0100 ####[facility] [address] [place], [address] Eosinophil percentageOrdered By: Renard Burgos on 07-29-2024 Eosinophils/100 WBC (Bld) 0.7 % 0-5 [facility] Erythrocyte distribution wid th ratioOrdered By: Renard Burgos on 07-29-2024 Erythrocyte distribution width (RBC) [Ratio] 12.8 % 11.6-14.6 [facility] Erythrocyte distribution wid th standard deviationOrdered By: Renard Burgos on 07-29-2024 Erythrocyte distribution width (RBC) [Entitic vol] 41.9 fL 35.1-43.9 [facility] Erythrocyte distribution width (RBC) [Ratio] 41.9 fl 35.1-43.9 [facility] Hematocrit Auto (Bld) [Volum e fraction]Ordered By: Renard Burgos on 07-29-2024 Hematocrit (Bld) [Volume fraction] 40.7 % 40-54 [facility] Hemoglobin measurementOrdere d By: Renard Burgos on 07-29-2024 Hemoglobin (Bld) [Mass/Vol] 13.5 g/dL 13.0-16.5 [facility] Immature granulocytes/100 WB C Auto (Bld)Ordered By: Renard Burgos on 07-29-2024 Immature granulocytes/100 WBC (Bld) 0.400 % 0.0-0.9 [facility] Comment on above: IG% - Immature Granu locytes (promyelocytes, myelocytes and metamyelocytes) > 1% indicates that a LEFT SHIFT is Present. Lymphocytes Auto (Unsp spec) [#/Vol]Ordered By: Renard Burgos on 07-29-2024 Lymphocytes (Bld) [#/Vol] 1.93 10*3/uL 0.83-4.51 [facility] Lymphocytes/100 WBC Auto (Un sp spec)Ordered By: Renard Burgos on 07-29-2024 Lymphocytes/100 WBC (Bld) 20.2 % 19-41 [facility] MCV (mean corpuscular volume ) determinationOrdered By: Renard Burgos on 07-29-2024 MCV (RBC) [Entitic vol] 90.0 fL 80-94 [facility] Mean corpuscular hemoglobin (MCH) determinationOrdered By: Renard Burgos on 07-29-2024 MCH (RBC) [Entitic mass] 29.9 pg 27.0-32.0 [facility] Mean corpuscular hemoglobin concentration (MCHC) determinationOrdered By: Renard Burgos on 07-29-2024 MCHC (RBC) [Mass/Vol] 33.2 g/dL 32-36 [facility] Mean platelet volume determi nationOrdered By: Renard Burgos on 07-29-2024 Platelet mean volume (Bld) [Entitic vol] 11.2 fL 6.2-12.0 [facility] Monocyte percentageOrdered B y: Renard Burgos on 07-29-2024 Monocytes/100 WBC (Bld) 7.1 % 0-10 [facility] Neutrophil percentageOrdered By: Renard Burgos on 07-29-2024 Neutrophils/100 WBC (Bld) 71.1 % High 47-70 [facility] Nucleated red blood cell per centageOrdered By: Renard Burgos on 07-29-2024 Nucleated RBC/100 WBC (Bld) [Ratio] 0 % 0-5 [facility] Platelet countOrdered By: Garrick Bhatt on 07-29-2024 Platelets (Bld) [#/Vol] 218 10*3/uL 150-450 [facility] RBC Auto (Bld) [#/Vol]Ordere d By: Renard Burgos on 07-29-2024 RBC (Bld) [#/Vol] 4.52 10*6/uL Low 4.6-6.2 [facility] White blood cell (WBC) count Ordered By: Renard Burgos on 07-29-2024 WBC (Bld) [#/Vol] 9.6 10*3/uL 4.4-11.0 [facility] Absolute lymphocyte countOrd ered By: Renard Burgos on 07-22-2024 Lymphocytes Auto (Unsp spec) [#/Vol] 1.90 10*3/uL 0.83-4.51 [facility] Absolute neutrophil countOrd ered By: Renard Burgos on 07-22-2024 Neutrophils (Bld) [#/Vol] 5.2 10*3/uL 2.0-7.7 [facility] Automated lymphocyte count a s percentage of total leukocytesOrdered By: Renard Burgos on 07-22-2024 Lymphocytes/100 WBC Auto (Unsp spec) 23.9 % 19-41 [facility] Basophil percentageOrdered B y: Renard Burgos on 07-22-2024 Basophils/100 WBC (Bld) 0.6 % 0-1 [facility] CBC W/Diff, Automatedon 06-30 Absolute Lymph 1.90 X10 3/uL Normal 0.83-4.51 [facility] Comment on above: Order Comment: 109.1 Performed By: #### L 100.0100 ####[facility] [address] [place], [address] Absolute Neut 5.2 X10 3/uL Normal 2.0-7.7 [facility] Comment on above: Order Comment: 109.1 Performed By: #### L 100.0100 ####[facility] [address] [place], [address] Basophils/100 WBC (Bld) 0.6 % Normal 0-1 [facility] Comment on above: Order Comment: 109.1 Performed By: #### L 100.0100 ####[facility] [address] [place], [address] Eosinophils/100 WBC (Bld) 0.9 % Normal 0-5 [facility] Comment on above: Order Comment: 109.1 Performed By: #### L 100.0100 ####[facility] [address] [place], [address] Erythrocyte distribution width (RBC) [Ratio] 12.9 % Normal 11.6-14.6 [facility] Comment on above: Order Comment: 109.1 Performed By: #### L 100.0100 ####[facility] [address] [place], [address] Hematocrit (Bld) [Volume fraction] 41.4 % Normal 40-54 [facility] Comment on above: Order Comment: 109.1 Performed By: #### L 100.0100 ####[facility] [address] [place], [address] Hemoglobin (Bld) [Mass/Vol] 13.5 g/dL Normal 13.0-16.5 [facility] Comment on above: Order Comment: 109.1 Performed By: #### L 100.0100 ####[facility] [address] [place], [address] IG% 0.300 Normal 0.0-0.9 [facility] Comment on above: Order Comment: 109.1 Result Comment: IG% - Immature Granulocytes (promyelocytes, myelocytes andmetamyelocytes) > 1% indicates that a LEFT SHIFT is Present. Performed By: #### L 100.0100 ####[facility] [address] [place], [address] Lymphocytes/100 WBC (Bld) 23.9 % Normal 19-41 [facility] Comment on above: Order Comment: 109.1 Performed By: #### L 100.0100 ####[facility] [address] [place], [address] MCH (RBC) [Entitic mass] 29.8 pg Normal 27.0-32.0 [facility] Comment on above: Order Comment: 109.1 Performed By: #### L 100.0100 ####[facility] [address] [place], [address] MCHC (RBC) [Mass/Vol] 32.6 g/dL Normal 32-36 [facility] Comment on above: Order Comment: 109.1 Performed By: #### L 100.0100 ####[facility] [address] [place], [address] MCV (RBC) [Entitic vol] 91.4 fL Normal 80-94 [facility] Comment on above: Order Comment: 109.1 Performed By: #### L 100.0100 ####[facility] [address] [place], [address] Monocytes/100 WBC (Bld) 9.4 % Normal 0-10 [facility] Comment on above: Order Comment: 109.1 Performed By: #### L 100.0100 ####[facility] [address] [place], [address] Neutrophils/100 WBC (Bld) 64.9 % Normal 47-70 [facility] Comment on above: Order Comment: 109.1 Performed By: #### L 100.0100 ####[facility] [address] [place], [address] Nucleated RBC (Bld) [#/Vol] 0 10*3/uL Normal 0-5 [facility] Comment on above: Order Comment: 109.1 Performed By: #### L 100.0100 ####[facility] [address] [place], [address] Platelet mean volume (Bld) [Entitic vol] 11.5 fL Normal 6.2-12.0 [facility] Comment on above: Order Comment: 109.1 Performed By: #### L 100.0100 ####[facility] [address] [place], [address] Platelets (Bld) [#/Vol] 202 10*3/uL Normal 150-450 [facility] Comment on above: Order Comment: 109.1 Performed By: #### L 100.0100 ####[facility] [address] [place], [address] RBC (Bld) [#/Vol] 4.53 10*6/uL Low 4.6-6.2 [facility] Comment on above: Order Comment: 109.1 Performed By: #### L 100.0100 ####[facility] [address] [place], [address] RDW SD 42.7 fl Normal 35.1-43.9 [facility] Comment on above: Order Comment: 109.1 Performed By: #### L 100.0100 ####[facility] [address] [place], [address] WBC (Bld) [#/Vol] 8.0 10*3/uL Normal 4.4-11.0 [facility] Comment on above: Order Comment: 109.1 Performed By: #### L 100.0100 ####[facility] [address] [place], [address] Eosinophil percentageOrdered By: Renard Burgos on 07-22-2024 Eosinophils/100 WBC (Bld) 0.9 % 0-5 [facility] Erythrocyte distribution wid th ratioOrdered By: Renard Burgos on 07-22-2024 Erythrocyte distribution width (RBC) [Ratio] 12.9 % 11.6-14.6 [facility] Erythrocyte distribution wid th standard deviationOrdered By: Renard Burgos on 07-22-2024 Erythrocyte distribution width (RBC) [Entitic vol] 42.7 fL 35.1-43.9 [facility] Erythrocyte distribution width (RBC) [Ratio] 42.7 fl 35.1-43.9 [facility] Hematocrit Auto (Bld) [Volum e fraction]Ordered By: Renard Burgos on 07-22-2024 Hematocrit (Bld) [Volume fraction] 41.4 % 40-54 [facility] Hemoglobin measurementOrdere d By: Renard Burgos on 07-22-2024 Hemoglobin (Bld) [Mass/Vol] 13.5 g/dL 13.0-16.5 [facility] Immature granulocytes/100 WB C Auto (Bld)Ordered By: Renard Burgos on 07-22-2024 Immature granulocytes/100 WBC (Bld) 0.300 % 0.0-0.9 [facility] Comment on above: IG% - Immature Granu locytes (promyelocytes, myelocytes and metamyelocytes) > 1% indicates that a LEFT SHIFT is Present. Lymphocytes Auto (Unsp spec) [#/Vol]Ordered By: Renard Burgos on 07-22-2024 Lymphocytes (Bld) [#/Vol] 1.90 10*3/uL 0.83-4.51 [facility] Lymphocytes/100 WBC Auto (Un sp spec)Ordered By: Renard Burgos on 07-22-2024 Lymphocytes/100 WBC (Bld) 23.9 % 19-41 [facility] MCV (mean corpuscular volume ) determinationOrdered By: Renard Burgos on 07-22-2024 MCV (RBC) [Entitic vol] 91.4 fL 80-94 [facility] Mean corpuscular hemoglobin (MCH) determinationOrdered By: Renard Burgos on 07-22-2024 MCH (RBC) [Entitic mass] 29.8 pg 27.0-32.0 [facility] Mean corpuscular hemoglobin concentration (MCHC) determinationOrdered By: Renard Burgos on 07-22-2024 MCHC (RBC) [Mass/Vol] 32.6 g/dL 32-36 [facility] Mean platelet volume determi nationOrdered By: Renard Burgos on 07-22-2024 Platelet mean volume (Bld) [Entitic vol] 11.5 fL 6.2-12.0 [facility] Monocyte percentageOrdered B y: Renard Burgos on 07-22-2024 Monocytes/100 WBC (Bld) 9.4 % 0-10 [facility] Neutrophil percentageOrdered By: eRnard Burgos on 07-22-2024 Neutrophils/100 WBC (Bld) 64.9 % 47-70 [facility] Nucleated red blood cell per centageOrdered By: Renard Burgos on 07-22-2024 Nucleated RBC/100 WBC (Bld) [Ratio] 0 % 0-5 [facility] Platelet countOrdered By: Garrick Bhatt on 07-22-2024 Platelets (Bld) [#/Vol] 202 10*3/uL 150-450 [facility] RBC Auto (Bld) [#/Vol]Ordere d By: Renard Burgos on 07-22-2024 RBC (Bld) [#/Vol] 4.53 10*6/uL Low 4.6-6.2 [facility] White blood cell (WBC) count Ordered By: Renard Burgos on 07-22-2024 WBC (Bld) [#/Vol] 8.0 10*3/uL 4.4-11.0 [facility] L506.1001on 07-16-2024 Vitamin D 25-OH 21.8 ng/mL Low 30-100 [facility] Comment on above: Order Comment: 109 Result Comment: Edilma min D StatusDeficiency: <20 ng/mL (50nmol/L)Insufficiency: 20-30 ng/mL (50-75 nmol/L)Sufficiency: 30-100 ng/mL (75-250 nmol/L)Toxicity: >100 ng/mL (>250 nmol/L) Performed By: #### L 506.1001 ####[facility] [address] [place], [address] Vitamin D, 25-hydroxyOrdered By: Renard Burgos on 07-16-2024 Vitamin D 25-Hydroxy 21.8 ng/mL Low 30-100 [facility] Comment on above: Vitamin D StatusDefi ciency: <20 ng/mL (50nmol/L)Insufficiency: 20-30 ng/mL (50-75 nmol/L)Sufficiency: 30-100 ng/mL (75-250 nmol/L)Toxicity: >100 ng/mL (>250 nmol/L) Absolute lymphocyte countOrd ered By: Renard Burgos on 07-15-2024 Lymphocytes Auto (Unsp spec) [#/Vol] 2.10 10*3/uL 0.83-4.51 [facility] Absolute neutrophil countOrd ered By: Renard Burgos on 07-15-2024 Neutrophils (Bld) [#/Vol] 6.9 10*3/uL 2.0-7.7 [facility] Automated lymphocyte count a s percentage of total leukocytesOrdered By: Renard Burgos on 07-15-2024 Lymphocytes/100 WBC Auto (Unsp spec) 21.0 % 19-41 [facility] Basophil percentageOrdered B y: Renard Burgos on 07-15-2024 Basophils/100 WBC (Bld) 0.5 % 0-1 [facility] CBC W/Diff, Automatedon 06-29 Absolute Lymph 2.10 X10 3/uL Normal 0.83-4.51 [facility] Comment on above: Order Comment: 109.1 Performed By: #### L 100.0100 ####[facility] [address] [place], [address] Absolute Neut 6.9 X10 3/uL Normal 2.0-7.7 [facility] Comment on above: Order Comment: 109.1 Performed By: #### L 100.0100 ####[facility] [address] [place], [address] Basophils/100 WBC (Bld) 0.5 % Normal 0-1 [facility] Comment on above: Order Comment: 109.1 Performed By: #### L 100.0100 ####[facility] [address] [place], [address] Eosinophils/100 WBC (Bld) 1.2 % Normal 0-5 [facility] Comment on above: Order Comment: 109.1 Performed By: #### L 100.0100 ####[facility] [address] [place], [address] Erythrocyte distribution width (RBC) [Ratio] 12.9 % Normal 11.6-14.6 [facility] Comment on above: Order Comment: 109.1 Performed By: #### L 100.0100 ####[facility] [address] [place], [address] Hematocrit (Bld) [Volume fraction] 41.0 % Normal 40-54 [facility] Comment on above: Order Comment: 109.1 Performed By: #### L 100.0100 ####[facility] [address] [place], [address] Hemoglobin (Bld) [Mass/Vol] 13.4 g/dL Normal 13.0-16.5 [facility] Comment on above: Order Comment: 109.1 Performed By: #### L 100.0100 ####[facility] [address] [place], [address] IG% 0.300 Normal 0.0-0.9 [facility] Comment on above: Order Comment: 109.1 Result Comment: IG% - Immature Granulocytes (promyelocytes, myelocytes andmetamyelocytes) > 1% indicates that a LEFT SHIFT is Present. Performed By: #### L 100.0100 ####[facility] [address] [place], [address] Lymphocytes/100 WBC (Bld) 21.0 % Normal 19-41 [facility] Comment on above: Order Comment: 109.1 Performed By: #### L 100.0100 ####[facility] [address] [place], [address] MCH (RBC) [Entitic mass] 29.7 pg Normal 27.0-32.0 [facility] Comment on above: Order Comment: 109.1 Performed By: #### L 100.0100 ####[facility] [address] [place], [address] MCHC (RBC) [Mass/Vol] 32.7 g/dL Normal 32-36 [facility] Comment on above: Order Comment: 109.1 Performed By: #### L 100.0100 ####[facility] [address] [place], [address] MCV (RBC) [Entitic vol] 90.9 fL Normal 80-94 [facility] Comment on above: Order Comment: 109.1 Performed By: #### L 100.0100 ####[facility] [address] [place], [address] Monocytes/100 WBC (Bld) 7.6 % Normal 0-10 [facility] Comment on above: Order Comment: 109.1 Performed By: #### L 100.0100 ####[facility] [address] [place], [address] Neutrophils/100 WBC (Bld) 69.4 % Normal 47-70 [facility] Comment on above: Order Comment: 109.1 Performed By: #### L 100.0100 ####[facility] [address] [place], [address] Nucleated RBC (Bld) [#/Vol] 0 10*3/uL Normal 0-5 [facility] Comment on above: Order Comment: 109.1 Performed By: #### L 100.0100 ####[facility] [address] [place], [address] Platelet mean volume (Bld) [Entitic vol] 11.4 fL Normal 6.2-12.0 [facility] Comment on above: Order Comment: 109.1 Performed By: #### L 100.0100 ####[facility] [address] [place], [address] Platelets (Bld) [#/Vol] 206 10*3/uL Normal 150-450 [facility] Comment on above: Order Comment: 109.1 Performed By: #### L 100.0100 ####[facility] [address] [place], [address] RBC (Bld) [#/Vol] 4.51 10*6/uL Low 4.6-6.2 [facility] Comment on above: Order Comment: 109.1 Performed By: #### L 100.0100 ####[facility] [address] [place], [address] RDW SD 42.3 fl Normal 35.1-43.9 [facility] Comment on above: Order Comment: 109.1 Performed By: #### L 100.0100 ####[facility] [address] [place], [address] WBC (Bld) [#/Vol] 10.0 10*3/uL Normal 4.4-11.0 [facility] Comment on above: Order Comment: 109.1 Performed By: #### L 100.0100 ####[facility] [address] [place], [address] Eosinophil percentageOrdered By: Renard Burgos on 07-15-2024 Eosinophils/100 WBC (Bld) 1.2 % 0-5 [facility] Erythrocyte distribution wid th ratioOrdered By: Renard Burgos on 07-15-2024 Erythrocyte distribution width (RBC) [Ratio] 12.9 % 11.6-14.6 [facility] Erythrocyte distribution wid th standard deviationOrdered By: Renard Burgos on 07-15-2024 Erythrocyte distribution width (RBC) [Entitic vol] 42.3 fL 35.1-43.9 [facility] Erythrocyte distribution width (RBC) [Ratio] 42.3 fl 35.1-43.9 [facility] Hematocrit Auto (Bld) [Volum e fraction]Ordered By: Renard Burgos on 07-15-2024 Hematocrit (Bld) [Volume fraction] 41.0 % 40-54 [facility] Hemoglobin measurementOrdere d By: Renard Burgos on 07-15-2024 Hemoglobin (Bld) [Mass/Vol] 13.4 g/dL 13.0-16.5 [facility] Immature granulocytes/100 WB C Auto (Bld)Ordered By: Renard Burgos on 07-15-2024 Immature granulocytes/100 WBC (Bld) 0.300 % 0.0-0.9 [facility] Comment on above: IG% - Immature Granu locytes (promyelocytes, myelocytes and metamyelocytes) > 1% indicates that a LEFT SHIFT is Present. Lymphocytes Auto (Unsp spec) [#/Vol]Ordered By: Renard Burgos on 07-15-2024 Lymphocytes (Bld) [#/Vol] 2.10 10*3/uL 0.83-4.51 [facility] Lymphocytes/100 WBC Auto (Un sp spec)Ordered By: Renard Burgos on 07-15-2024 Lymphocytes/100 WBC (Bld) 21.0 % 19-41 [facility] MCV (mean corpuscular volume ) determinationOrdered By: Renard Burgos on 07-15-2024 MCV (RBC) [Entitic vol] 90.9 fL 80-94 [facility] Mean corpuscular hemoglobin (MCH) determinationOrdered By: Renard Burgos on 07-15-2024 MCH (RBC) [Entitic mass] 29.7 pg 27.0-32.0 [facility] Mean corpuscular hemoglobin concentration (MCHC) determinationOrdered By: Renard Burgos on 07-15-2024 MCHC (RBC) [Mass/Vol] 32.7 g/dL 32-36 [facility] Mean platelet volume determi nationOrdered By: Renard Burgos on 07-15-2024 Platelet mean volume (Bld) [Entitic vol] 11.4 fL 6.2-12.0 [facility] Monocyte percentageOrdered B y: Renard Burgos on 07-15-2024 Monocytes/100 WBC (Bld) 7.6 % 0-10 [facility] Neutrophil percentageOrdered By: Renard Burgos on 07-15-2024 Neutrophils/100 WBC (Bld) 69.4 % 47-70 [facility] Nucleated red blood cell per centageOrdered By: Renard Burgos on 07-15-2024 Nucleated RBC/100 WBC (Bld) [Ratio] 0 % 0-5 [facility] Platelet countOrdered By: Garrick Bhatt on 07-15-2024 Platelets (Bld) [#/Vol] 206 10*3/uL 150-450 [facility] RBC Auto (Bld) [#/Vol]Ordere d By: Renard Burgos on 07-15-2024 RBC (Bld) [#/Vol] 4.51 10*6/uL Low 4.6-6.2 [facility] White blood cell (WBC) count Ordered By: Renard Burgos on 07-15-2024 WBC (Bld) [#/Vol] 10.0 10*3/uL 4.4-11.0 [facility] Absolute lymphocyte countOrd ered By: Renard Burgos on 07-08-2024 Lymphocytes Auto (Unsp spec) [#/Vol] 2.02 10*3/uL 0.83-4.51 [facility] Absolute neutrophil countOrd ered By: Renard Burgos on 07-08-2024 Neutrophils (Bld) [#/Vol] 7.2 10*3/uL 2.0-7.7 [facility] Automated lymphocyte count a s percentage of total leukocytesOrdered By: Renard Burgos on 07-08-2024 Lymphocytes/100 WBC Auto (Unsp spec) 19.7 % 19-41 [facility] Basophil percentageOrdered B y: Renard Burgos on 07-08-2024 Basophils/100 WBC (Bld) 0.6 % 0-1 [facility] CBC W/Diff, Automatedon 06-29 Absolute Lymph 2.02 X10 3/uL Normal 0.83-4.51 [facility] Comment on above: Order Comment: 109-1 Performed By: #### L 100.0100 ####[facility] [address] [place], [place], [address] Absolute Neut 7.2 X10 3/uL Normal 2.0-7.7 [facility] Comment on above: Order Comment: 109-1 Performed By: #### L 100.0100 ####[facility] [address] [place], [address] Basophils/100 WBC (Bld) 0.6 % Normal 0-1 [facility] Comment on above: Order Comment: 109-1 Performed By: #### L 100.0100 ####[facility] [address] [place], [address] Eosinophils/100 WBC (Bld) 1.5 % Normal 0-5 [facility] Comment on above: Order Comment: 109-1 Performed By: #### L 100.0100 ####[facility] [address] [place], [address] Erythrocyte distribution width (RBC) [Ratio] 12.9 % Normal 11.6-14.6 [facility] Comment on above: Order Comment: 109-1 Performed By: #### L 100.0100 ####[facility] [address] [place], [address] Hematocrit (Bld) [Volume fraction] 40.6 % Normal 40-54 [facility] Comment on above: Order Comment: 109-1 Performed By: #### L 100.0100 ####[facility] [address] [place], [address] Hemoglobin (Bld) [Mass/Vol] 13.6 g/dL Normal 13.0-16.5 [facility] Comment on above: Order Comment: 109-1 Performed By: #### L 100.0100 ####[facility] [address] [place], [address] IG% 0.500 Normal 0.0-0.9 [facility] Comment on above: Order Comment: 109-1 Result Comment: IG% - Immature Granulocytes (promyelocytes, myelocytes andmetamyelocytes) > 1% indicates that a LEFT SHIFT is Present. Performed By: #### L 100.0100 ####[facility] [address] [place], [address] Lymphocytes/100 WBC (Bld) 19.7 % Normal 19-41 [facility] Comment on above: Order Comment: 109-1 Performed By: #### L 100.0100 ####[facility] [address] [place], [address] MCH (RBC) [Entitic mass] 30.5 pg Normal 27.0-32.0 [facility] Comment on above: Order Comment: 109-1 Performed By: #### L 100.0100 ####[facility] [address] [place], [address] MCHC (RBC) [Mass/Vol] 33.5 g/dL Normal 32-36 [facility] Comment on above: Order Comment: 109-1 Performed By: #### L 100.0100 ####[facility] [address] [place], [address] MCV (RBC) [Entitic vol] 91.0 fL Normal 80-94 [facility] Comment on above: Order Comment: 109-1 Performed By: #### L 100.0100 ####[facility] [address] [place], [address] Monocytes/100 WBC (Bld) 7.4 % Normal 0-10 [facility] Comment on above: Order Comment: 109-1 Performed By: #### L 100.0100 ####[facility] [address] [place], [address] Neutrophils/100 WBC (Bld) 70.3 % High 47-70 [facility] Comment on above: Order Comment: 109-1 Performed By: #### L 100.0100 ####[facility] [address] [place], [address] Nucleated RBC (Bld) [#/Vol] 0 10*3/uL Normal 0-5 [facility] Comment on above: Order Comment: 109-1 Performed By: #### L 100.0100 ####[facility] [address] [place], [address] Platelet mean volume (Bld) [Entitic vol] 11.1 fL Normal 6.2-12.0 [facility] Comment on above: Order Comment: 109-1 Performed By: #### L 100.0100 ####[facility] [address] [place], [address] Platelets (Bld) [#/Vol] 207 10*3/uL Normal 150-450 [facility] Comment on above: Order Comment: 109-1 Performed By: #### L 100.0100 ####[facility] [address] [place], [address] RBC (Bld) [#/Vol] 4.46 10*6/uL Low 4.6-6.2 [facility] Comment on above: Order Comment: 109-1 Performed By: #### L 100.0100 ####[facility] [address] [place], [address] RDW SD 42.5 fl Normal 35.1-43.9 [facility] Comment on above: Order Comment: 109-1 Performed By: #### L 100.0100 ####[facility] [address] [place], [address] WBC (Bld) [#/Vol] 10.3 10*3/uL Normal 4.4-11.0 [facility] Comment on above: Order Comment: 109-1 Performed By: #### L 100.0100 ####[facility] [address] [place], [address] Eosinophil percentageOrdered By: Renard Burgos on 07-08-2024 Eosinophils/100 WBC (Bld) 1.5 % 0-5 [facility] Erythrocyte distribution wid th ratioOrdered By: Renard Burgos on 07-08-2024 Erythrocyte distribution width (RBC) [Ratio] 12.9 % 11.6-14.6 [facility] Erythrocyte distribution wid th standard deviationOrdered By: Renard Burgos on 07-08-2024 Erythrocyte distribution width (RBC) [Entitic vol] 42.5 fL 35.1-43.9 [facility] Erythrocyte distribution width (RBC) [Ratio] 42.5 fl 35.1-43.9 [facility] Hematocrit Auto (Bld) [Volum e fraction]Ordered By: Renard Burgos on 07-08-2024 Hematocrit (Bld) [Volume fraction] 40.6 % 40-54 [facility] Hemoglobin measurementOrdere d By: Renard Burgos on 07-08-2024 Hemoglobin (Bld) [Mass/Vol] 13.6 g/dL 13.0-16.5 [facility] Immature granulocytes/100 WB C Auto (Bld)Ordered By: Renard Burgos on 07-08-2024 Immature granulocytes/100 WBC (Bld) 0.500 % 0.0-0.9 [facility] Comment on above: IG% - Immature Granu locytes (promyelocytes, myelocytes and metamyelocytes) > 1% indicates that a LEFT SHIFT is Present. Lymphocytes Auto (Unsp spec) [#/Vol]Ordered By: Renard Burgos on 07-08-2024 Lymphocytes (Bld) [#/Vol] 2.02 10*3/uL 0.83-4.51 [facility] Lymphocytes/100 WBC Auto (Un sp spec)Ordered By: Renard Burgos on 07-08-2024 Lymphocytes/100 WBC (Bld) 19.7 % 19-41 [facility] MCV (mean corpuscular volume ) determinationOrdered By: Renard Burgos on 07-08-2024 MCV (RBC) [Entitic vol] 91.0 fL 80-94 [facility] Mean corpuscular hemoglobin (MCH) determinationOrdered By: Renard Burgos on 07-08-2024 MCH (RBC) [Entitic mass] 30.5 pg 27.0-32.0 [facility] Mean corpuscular hemoglobin concentration (MCHC) determinationOrdered By: Renard Burgos on 07-08-2024 MCHC (RBC) [Mass/Vol] 33.5 g/dL 32-36 [facility] Mean platelet volume determi nationOrdered By: Renard Burgos on 07-08-2024 Platelet mean volume (Bld) [Entitic vol] 11.1 fL 6.2-12.0 [facility] Monocyte percentageOrdered B y: Renard Burgos on 07-08-2024 Monocytes/100 WBC (Bld) 7.4 % 0-10 [facility] Neutrophil percentageOrdered By: Renard Burgos on 07-08-2024 Neutrophils/100 WBC (Bld) 70.3 % High 47-70 [facility] Nucleated red blood cell per centageOrdered By: Renard Burgos on 07-08-2024 Nucleated RBC/100 WBC (Bld) [Ratio] 0 % 0-5 [facility] Platelet countOrdered By: Garrick Bhatt on 07-08-2024 Platelets (Bld) [#/Vol] 207 10*3/uL 150-450 [facility] RBC Auto (Bld) [#/Vol]Ordere d By: Renard Burgos on 07-08-2024 RBC (Bld) [#/Vol] 4.46 10*6/uL Low 4.6-6.2 [facility] White blood cell (WBC) count Ordered By: Renard Burgos on 07-08-2024 WBC (Bld) [#/Vol] 10.3 10*3/uL 4.4-11.0 [facility] Absolute lymphocyte countOrd ered By: Renard Burgos on 07-01-2024 Lymphocytes Auto (Unsp spec) [#/Vol] 2.03 10*3/uL 0.83-4.51 [facility] Absolute neutrophil countOrd ered By: Renard Burgos on 07-01-2024 Neutrophils (Bld) [#/Vol] 7.0 10*3/uL 2.0-7.7 [facility] Automated lymphocyte count a s percentage of total leukocytesOrdered By: Renard Burgos on 07-01-2024 Lymphocytes/100 WBC Auto (Unsp spec) 20.3 % 19-41 [facility] Basophil percentageOrdered B y: Renard Burgos on 07-01-2024 Basophils/100 WBC (Bld) 0.6 % 0-1 [facility] CBC W/Diff, Automatedon 03-0 3-2024 Absolute Lymph 2.03 X10 3/uL Normal 0.83-4.51 [facility] Comment on above: Order Comment: 109 Performed By: #### L 100.0100 ####[facility] [address] [place], [address] Absolute Neut 7.0 X10 3/uL Normal 2.0-7.7 [facility] Comment on above: Order Comment: 109 Performed By: #### L 100.0100 ####[facility] [address] [place], [address] Basophils/100 WBC (Bld) 0.6 % Normal 0-1 [facility] Comment on above: Order Comment: 109 Performed By: #### L 100.0100 ####[facility] [address] [place], [address] Eosinophils/100 WBC (Bld) 1.3 % Normal 0-5 [facility] Comment on above: Order Comment: 109 Performed By: #### L 100.0100 ####[facility] [address] [place], [address] Erythrocyte distribution width (RBC) [Ratio] 13.1 % Normal 11.6-14.6 [facility] Comment on above: Order Comment: 109 Performed By: #### L 100.0100 ####[facility] [address] [place], [address] Hematocrit (Bld) [Volume fraction] 41.7 % Normal 40-54 [facility] Comment on above: Order Comment: 109 Performed By: #### L 100.0100 ####[facility] [address] [place], [address] Hemoglobin (Bld) [Mass/Vol] 13.6 g/dL Normal 13.0-16.5 [facility] Comment on above: Order Comment: 109 Performed By: #### L 100.0100 ####[facility] [address] [place], [address] IG% 0.500 Normal 0.0-0.9 [facility] Comment on above: Order Comment: 109 Result Comment: IG% - Immature Granulocytes (promyelocytes, myelocytes andmetamyelocytes) > 1% indicates that a LEFT SHIFT is Present. Performed By: #### L 100.0100 ####[facility] [address] [place], [address] Lymphocytes/100 WBC (Bld) 20.3 % Normal 19-41 [facility] Comment on above: Order Comment: 109 Performed By: #### L 100.0100 ####[facility] [address] [place], [address] MCH (RBC) [Entitic mass] 29.6 pg Normal 27.0-32.0 [facility] Comment on above: Order Comment: 109 Performed By: #### L 100.0100 ####[facility] [address] [place], [address] MCHC (RBC) [Mass/Vol] 32.6 g/dL Normal 32-36 [facility] Comment on above: Order Comment: 109 Performed By: #### L 100.0100 ####[facility] [address] [place], [address] MCV (RBC) [Entitic vol] 90.8 fL Normal 80-94 [facility] Comment on above: Order Comment: 109 Performed By: #### L 100.0100 ####[facility] [address] [place], [address] Monocytes/100 WBC (Bld) 6.8 % Normal 0-10 [facility] Comment on above: Order Comment: 109 Performed By: #### L 100.0100 ####[facility] [address] [place], [address] Neutrophils/100 WBC (Bld) 70.5 % High 47-70 [facility] Comment on above: Order Comment: 109 Performed By: #### L 100.0100 ####[facility] [address] [place], [address] Nucleated RBC (Bld) [#/Vol] 0 10*3/uL Normal 0-5 [facility] Comment on above: Order Comment: 109 Performed By: #### L 100.0100 ####[facility] [address] [place], [address] Platelet mean volume (Bld) [Entitic vol] 11.0 fL Normal 6.2-12.0 [facility] Comment on above: Order Comment: 109 Performed By: #### L 100.0100 ####[facility] [address] [place], [address] Platelets (Bld) [#/Vol] 208 10*3/uL Normal 150-450 [facility] Comment on above: Order Comment: 109 Performed By: #### L 100.0100 ####[facility] [address] [place], [address] RBC (Bld) [#/Vol] 4.59 10*6/uL Low 4.6-6.2 [facility] Comment on above: Order Comment: 109 Performed By: #### L 100.0100 ####[facility] [address] [place], [address] RDW SD 42.8 fl Normal 35.1-43.9 [facility] Comment on above: Order Comment: 109 Performed By: #### L 100.0100 ####[facility] [address] [place], [address] WBC (Bld) [#/Vol] 10.0 10*3/uL Normal 4.4-11.0 [facility] Comment on above: Order Comment: 109 Performed By: #### L 100.0100 ####[facility] [address] [place], [address] Eosinophil percentageOrdered By: Renard Burgos on 07-01-2024 Eosinophils/100 WBC (Bld) 1.3 % 0-5 [facility] Erythrocyte distribution wid th ratioOrdered By: Renard Burgos on 07-01-2024 Erythrocyte distribution width (RBC) [Ratio] 13.1 % 11.6-14.6 [facility] Erythrocyte distribution wid th standard deviationOrdered By: Renard Burgos on 07-01-2024 Erythrocyte distribution width (RBC) [Entitic vol] 42.8 fL 35.1-43.9 [facility] Erythrocyte distribution width (RBC) [Ratio] 42.8 fl 35.1-43.9 [facility] Hematocrit Auto (Bld) [Volum e fraction]Ordered By: Renard Burgos on 07-01-2024 Hematocrit (Bld) [Volume fraction] 41.7 % 40-54 [facility] Hemoglobin measurementOrdere d By: Renard Burgos on 07-01-2024 Hemoglobin (Bld) [Mass/Vol] 13.6 g/dL 13.0-16.5 [facility] Immature granulocytes/100 WB C Auto (Bld)Ordered By: Renard Burgos on 07-01-2024 Immature granulocytes/100 WBC (Bld) 0.500 % 0.0-0.9 [facility] Comment on above: IG% - Immature Granu locytes (promyelocytes, myelocytes and metamyelocytes) > 1% indicates that a LEFT SHIFT is Present. Lymphocytes Auto (Unsp spec) [#/Vol]Ordered By: Renard Burgos on 07-01-2024 Lymphocytes (Bld) [#/Vol] 2.03 10*3/uL 0.83-4.51 [facility] Lymphocytes/100 WBC Auto (Un sp spec)Ordered By: Renard Burgos on 07-01-2024 Lymphocytes/100 WBC (Bld) 20.3 % 19-41 [facility] MCV (mean corpuscular volume ) determinationOrdered By: Renard Burgos on 07-01-2024 MCV (RBC) [Entitic vol] 90.8 fL 80-94 [facility] Mean corpuscular hemoglobin (MCH) determinationOrdered By: Renard Burgos on 07-01-2024 MCH (RBC) [Entitic mass] 29.6 pg 27.0-32.0 [facility] Mean corpuscular hemoglobin concentration (MCHC) determinationOrdered By: Renard Burgos on 07-01-2024 MCHC (RBC) [Mass/Vol] 32.6 g/dL 32-36 [facility] Mean platelet volume determi nationOrdered By: Renard Burgos on 07-01-2024 Platelet mean volume (Bld) [Entitic vol] 11.0 fL 6.2-12.0 [facility] Monocyte percentageOrdered B y: Renard Burgos on 07-01-2024 Monocytes/100 WBC (Bld) 6.8 % 0-10 [facility] Neutrophil percentageOrdered By: Renard Bugros on 07-01-2024 Neutrophils/100 WBC (Bld) 70.5 % High 47-70 [facility] Nucleated red blood cell per centageOrdered By: Renard Burgos on 07-01-2024 Nucleated RBC/100 WBC (Bld) [Ratio] 0 % 0-5 [facility] Platelet countOrdered By: Garrick Bhatt on 07-01-2024 Platelets (Bld) [#/Vol] 208 10*3/uL 150-450 [facility] RBC Auto (Bld) [#/Vol]Ordere d By: Renard Burgos on 07-01-2024 RBC (Bld) [#/Vol] 4.59 10*6/uL Low 4.6-6.2 [facility] White blood cell (WBC) count Ordered By: Renard Burgos on 07-01-2024 WBC (Bld) [#/Vol] 10.0 10*3/uL 4.4-11.0 [facility] Urine Cultureon 06-30-2024 URC Normal [facility] Comment on above: Performed By: #### M 100.2200, L400.0001 ####[facility] [address] [place], [place], [id number] Bilirubin Test strip Ql (U)O rdered By: Renard Burgos on 06-27-2024 Bilirubin Ql (U) Negative Negative [facility] Epithelial cells.squamous LM Ql (Urine sed)Ordered By: Renard Burgos on 06-27-2024 Epithelial cells.squamous LM.HPF (Urine sed) [#/Area] 0 /[HPF] 0-5 [facility] Glucose Ql (U)Ordered By: Garrick Bhatt on 06-27-2024 Urine Glucose (UA) Normal mg/dl Normal [facility] Ketones Test strip Ql (U)Ord ered By: Renard Burgos on 06-27-2024 Ketones Ql (U) Negative Negative [facility] Microscopic analysis of urin e for red blood cells (RBC)Ordered By: Renard Burgos on 06-27-2024 Microscopic analysis of urine for red blood cells (RBC) 0 SEEN /hpf 0-5 [facility] Urine RBC 0 SEEN /hpf 0-5 [facility] Mucus LM Ql (Urine sed)Order ed By: Renard Burgos on 06-27-2024 Mucus Ql (Urine sed) 0 SEEN /hpf [facility] Nitrite Test strip Ql (U)Ord ered By: Renard Burgos on 06-27-2024 Nitrite Ql (U) Negative Negative [facility] Protein Test strip Ql (U)Ord ered By: Renard Burgos on 06-27-2024 Protein Ql (U) 15 mg/dl High Negative [facility] Squamous epithelial cells de tection in urine sediment by light microscopyOrdered By: Renard Burgos on 06-27-2024 Epithelial cells.squamous LM Ql (Urine sed) 0 SEEN /hpf 0-5 [facility] Urinalysis, Completeon 06-27 RBC 0 SEEN Normal 0-5 [facility] Comment on above: Order Comment: [facility] SPECIMEN Performed By: #### M 100.2200, L400.0001 ####[facility] [address] [place], [address] Urine blood detectionOrdered By: Renard Burgos on 06-27-2024 Urine Occult Blood Negative Negative [facility] Urine clarityOrdered By: Lyubov Burgos on 06-27-2024 Clarity (U) Clear Clear [facility] Urine color determinationOrd ered By: Renard Burgos on 06-27-2024 Color (U) Yellow Yellow [facility] Urine cultureOrdered By: Lyubov Burgos on 06-27-2024 Bacteria identified Cx Nom (U) Staphylococcus warneri Abnormal [facility] Bacteria identified Cx Nom (U) Aerococcus viridans. Abnormal [facility] Bacteria identified Cx Nom (U) Presumptive C albicans Abnormal [facility] Bacteria identified Cx Nom (U) Staphylococcus warneri Abnormal [facility] Bacteria identified Cx Nom (U) Aerococcus viridans. Abnormal [facility] Bacteria identified Cx Nom (U) Presumptive C albicans Abnormal [facility] Urine glucose detectionOrder ed By: Renard Burgos on 06-27-2024 Glucose Ql (U) Normal mg/dl Normal [facility] Urine leukocyte esterase det ection by dipstickOrdered By: Renard Burgos on 06-27-2024 Leukocyte esterase Test strip Ql (U) Negative Negative [facility] Urine pHOrdered By: Renard ocampo on 06-27-2024 pH (U) 7.0 [pH] 5.0 - 8.0 [facility] Urine sediment bacteria coun t by microscopy (number/high power field)Ordered By: Renard Burgos on 06-27-2024 Bacteria LM.HPF (Urine sed) [#/Area] 0 /[HPF] None Seen [facility] Urine specific gravity measu rementOrdered By: Renard Burgos on 06-27-2024 Specific gravity (U) [Rel density] 1.010 1.002-1.030 [facility] Urine urobilinogen measureme ntOrdered By: Renard Burgos on 06-27-2024 Urobilinogen Ql (U) 4 mg/dl High Normal [facility] Urobilinogen Ql (U)Ordered B y: Renard Burgos on 06-27-2024 Urobilinogen (U) [Mass/Vol] 4 mg/dL High Normal [facility] White blood cell countOrdere d By: Renard Burgos on 06-27-2024 Urine WBC 0 SEEN /hpf 0-5 [facility] White blood cell count 0 SEEN /hpf 0-5 [facility] CT CHEST WO IV CONTRASTon [...] 8:07 AM EST Cough x 2months Normal [facility] CT Chest WO contraston 06-26 Nonspecific groundglass densities are noted in the bilateral lower lobes. 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 [facility] Maria Eugenia Ruiz MD - 06/26/2024 [...] Electronically Signed Date/Time: 06/26/2024 8:07 AM EST [email or web address] CT Chest WO contrastOrdered By: Maria Eugenia Ruiz on 06-26-2024 [email or web address] Work Phone: Absolute lymphocyte countOrd ered By: Renard Burgos on 06-24-2024 Lymphocytes Auto (Unsp spec) [#/Vol] 1.65 10*3/uL 0.83-4.51 [facility] Absolute neutrophil countOrd ered By: Renard Burgos on 06-24-2024 Neutrophils (Bld) [#/Vol] 10.2 10*3/uL High 2.0-7.7 [facility] Automated lymphocyte count a s percentage of total leukocytesOrdered By: Renard Burgos on 06-24-2024 Lymphocytes/100 WBC Auto (Unsp spec) 12.8 % Low 19-41 [facility] Basic Metabolic Profile (BMP )on 06-24-2024 BUN/CRE 24.9 RATIO High 10-20 [facility] Comment on above: Order Comment: 109.1 Performed By: #### L 100.0100, L500.2500 ####[facility] [address] [place], [address] CA,Total 8.3 mg/dL Low 8.5-10.1 [facility] Comment on above: Order Comment: 109.1 Performed By: #### L 100.0100, L500.2500 ####[facility] [address] [place], [address] Chloride [Moles/Vol] 107 mmol/L Normal 98-107 [facility] Comment on above: Order Comment: 109.1 Performed By: #### L 100.0100, L500.2500 ####[facility] [address] [place], [address] CO2 [Moles/Vol] 24.0 mmol/L Normal 21.0-32.0 [facility] Comment on above: Order Comment: 109.1 Performed By: #### L 100.0100, L500.2500 ####[facility] [address] [place], [address] Creatinine [Mass/Vol] 0.60 mg/dL Low 0.70-1.30 [facility] Comment on above: Order Comment: 109.1 Result Comment: The validity of the calculated GFR GFRAA in patients over70 years has not been determined. Clinical correlation isessential. Performed By: #### L 100.0100, L500.2500 ####[facility] [address] [place], [address] EST GFR - AA 172 mL/min Normal >60 [facility] Comment on above: Order Comment: 109.1 Result Comment: Afri can Niue[place] GFR Calc Performed By: #### L 100.0100, L500.2500 ####[facility] [address] [place], [address] GAP 8 Normal 5-15 [facility] Comment on above: Order Comment: 109.1 Performed By: #### L 100.0100, L500.2500 ####[facility] [address] [place], [address] GFR/1.73 sq M.predicted among non-blacks MDRD (S/P/Bld) [Vol rate/Area] 142 mL/min/{1.73_m2} Normal >60 [facility] Comment on above: Order Comment: 109.1 Result Comment: Non- GFR Calc Performed By: #### L 100.0100, L500.2500 ####[facility] [address] [place], [address] Glucose [Mass/Vol] 101 mg/dL Normal 74-106 [facility] Comment on above: Order Comment: 109.1 Result Comment: Fast ing Glucose result from 100 to 125 mg/dLsuggests IMPAIRED HOMEOSTASIS per A.D.A. criteria. Performed By: #### L 100.0100, L500.2500 ####[facility] [address] [place], [address] Potassium [Moles/Vol] 4.1 mmol/L Normal 3.5-5.1 [facility] Comment on above: Order Comment: 109.1 Performed By: #### L 100.0100, L500.2500 ####[facility] [address] [place], [address] Sodium [Moles/Vol] 139 mmol/L Normal 136-145 [facility] Comment on above: Order Comment: 109.1 Performed By: #### L 100.0100, L500.2500 ####[facility] [address] [place], [address] Urea nitrogen [Mass/Vol] 15 mg/dL Normal 7-18 [facility] Comment on above: Order Comment: 109.1 Performed By: #### L 100.0100, L500.2500 ####[facility] [address] [place], [address] Basophil percentageOrdered B y: Renard Burgos on 06-24-2024 Basophils/100 WBC (Bld) 0.5 % 0-1 [facility] Blood urea nitrogen (BUN)/cr eatinine ratioOrdered By: Renard Burgos on 06-24-2024 Urea nitrogen/Creatinine [Mass ratio] 24.9 mg/mg High 10-20 [facility] CBC W/Diff, Automatedon - Absolute Lymph 1.65 X10 3/uL Normal 0.83-4.51 [facility] Comment on above: Order Comment: 109.1 Performed By: #### L 100.0100, L500.2500 ####[facility] [address] [place], [address] Absolute Neut 10.2 X10 3/uL High 2.0-7.7 [facility] Comment on above: Order Comment: 109.1 Performed By: #### L 100.0100, L500.2500 ####[facility] [address] [place], [address] Basophils/100 WBC (Bld) 0.5 % Normal 0-1 [facility] Comment on above: Order Comment: 109.1 Performed By: #### L 100.0100, L500.2500 ####[facility] [address] [place], [address] Eosinophils/100 WBC (Bld) 0.8 % Normal 0-5 [facility] Comment on above: Order Comment: 109.1 Performed By: #### L 100.0100, L500.2500 ####[facility] [address] [place], [address] Erythrocyte distribution width (RBC) [Ratio] 13.2 % Normal 11.6-14.6 [facility] Comment on above: Order Comment: 109.1 Performed By: #### L 100.0100, L500.2500 ####[facility] [address] [place], [address] Hematocrit (Bld) [Volume fraction] 41.8 % Normal 40-54 [facility] Comment on above: Order Comment: 109.1 Performed By: #### L 100.0100, L500.2500 ####[facility] [address] [place], [address] Hemoglobin (Bld) [Mass/Vol] 13.6 g/dL Normal 13.0-16.5 [facility] Comment on above: Order Comment: 109.1 Performed By: #### L 100.0100, L500.2500 ####[facility] [address] [place], [address] IG% 0.500 Normal 0.0-0.9 [facility] Comment on above: Order Comment: 109.1 Result Comment: IG% - Immature Granulocytes (promyelocytes, myelocytes andmetamyelocytes) > 1% indicates that a LEFT SHIFT is Present. Performed By: #### L 100.0100, L500.2500 ####[facility] [address] [place], [address] Lymphocytes/100 WBC (Bld) 12.8 % Low 19-41 [facility] Comment on above: Order Comment: 109.1 Performed By: #### L 100.0100, L500.2500 ####[facility] [address] [place], [address] MCH (RBC) [Entitic mass] 30.2 pg Normal 27.0-32.0 [facility] Comment on above: Order Comment: 109.1 Performed By: #### L 100.0100, L500.2500 ####[facility] [address] [place], [address] MCHC (RBC) [Mass/Vol] 32.5 g/dL Normal 32-36 [facility] Comment on above: Order Comment: 109.1 Performed By: #### L 100.0100, L500.2500 ####[facility] [address] [place], [address] MCV (RBC) [Entitic vol] 92.7 fL Normal 80-94 [facility] Comment on above: Order Comment: 109.1 Performed By: #### L 100.0100, L500.2500 ####[facility] [address] [place], [address] Monocytes/100 WBC (Bld) 6.4 % Normal 0-10 [facility] Comment on above: Order Comment: 109.1 Performed By: #### L 100.0100, L500.2500 ####[facility] [address] [place], [address] Neutrophils/100 WBC (Bld) 79.0 % High 47-70 [facility] Comment on above: Order Comment: 109.1 Performed By: #### L 100.0100, L500.2500 ####[facility] [address] [place], [address] Nucleated RBC (Bld) [#/Vol] 0 10*3/uL Normal 0-5 [facility] Comment on above: Order Comment: 109.1 Performed By: #### L 100.0100, L500.2500 ####[facility] [address] [place], [address] Platelet mean volume (Bld) [Entitic vol] 11.3 fL Normal 6.2-12.0 [facility] Comment on above: Order Comment: 109.1 Performed By: #### L 100.0100, L500.2500 ####[facility] [address] [place], [address] Platelets (Bld) [#/Vol] 171 10*3/uL Normal 150-450 [facility] Comment on above: Order Comment: 109.1 Performed By: #### L 100.0100, L500.2500 ####[facility] [address] [place], [address] RBC (Bld) [#/Vol] 4.51 10*6/uL Low 4.6-6.2 [facility] Comment on above: Order Comment: 109.1 Performed By: #### L 100.0100, L500.2500 ####[facility] [address] [place], [address] RDW SD 45.1 fl High 35.1-43.9 [facility] Comment on above: Order Comment: 109.1 Performed By: #### L 100.0100, L500.2500 ####[facility] [address] [place], [address] WBC (Bld) [#/Vol] 12.9 10*3/uL High 4.4-11.0 [facility] Comment on above: Order Comment: 109.1 Performed By: #### L 100.0100, L500.2500 ####[facility] [address] [place], [address] CT Chest WO contraston 06-24 Radiology Study observation (narrative) Ericka smith Carbon dioxide measurementOr dered By: Renard Burgos on 06-24-2024 CO2 [Moles/Vol] 24.0 mmol/L 21.0-32.0 [facility] Chloride measurementOrdered By: Renard Burgos on 06-24-2024 Chloride [Moles/Vol] 107 mmol/L 98-107 [facility] Eosinophil percentageOrdered By: Renard Burgos on 06-24-2024 Eosinophils/100 WBC (Bld) 0.8 % 0-5 [facility] Erythrocyte distribution wid th ratioOrdered By: Renard Burgos on 06-24-2024 Erythrocyte distribution width (RBC) [Ratio] 13.2 % 11.6-14.6 [facility] Erythrocyte distribution wid th standard deviationOrdered By: Renard Burgos on 06-24-2024 Erythrocyte distribution width (RBC) [Entitic vol] 45.1 fL High 35.1-43.9 [facility] Erythrocyte distribution width (RBC) [Ratio] 45.1 fl High 35.1-43.9 [facility] Estimated glomerular filtrat ion rate (GFR) AmericanOrdered By: Renard Burgos on 06-24-2024 Estimated GFR (MDRD) Amer 172 mL/min >60 [facility] Comment on above: GFR Calc Glomerular filtration rate ( GFR) estimationOrdered By: Renard Burgos on 06-24-2024 Estimated GFR (MDRD) Non-Af Amer 142 mL/min >60 [facility] Comment on above: Non- GFR Calc GFR/1.73 sq M.predicted among non-blacks MDRD (S/P/Bld) [Vol rate/Area] 142 mL/min/{1.73_m2} >60 [facility] Comment on above: Non- GFR Calc Glucose measurementOrdered B y: Renard Burgos on 06-24-2024 Glucose [Mass/Vol] 101 mg/dL 74-106 [facility] Comment on above: Fasting Glucose resu lt from 100 to 125 mg/dL suggests IMPAIRED HOMEOSTASIS per A.D.A. criteria. Hematocrit Auto (Bld) [Volum e fraction]Ordered By: Renard Burgos on 06-24-2024 Hematocrit (Bld) [Volume fraction] 41.8 % 40-54 [facility] Hemoglobin measurementOrdere d By: Renard Burgos on 06-24-2024 Hemoglobin (Bld) [Mass/Vol] 13.6 g/dL 13.0-16.5 [facility] Immature granulocytes/100 WB C Auto (Bld)Ordered By: Renard Burgos on 06-24-2024 Immature granulocytes/100 WBC (Bld) 0.500 % 0.0-0.9 [facility] Comment on above: IG% - Immature Granu locytes (promyelocytes, myelocytes and metamyelocytes) > 1% indicates that a LEFT SHIFT is Present. Lymphocytes Auto (Unsp spec) [#/Vol]Ordered By: Renard Burgos on 06-24-2024 Lymphocytes (Bld) [#/Vol] 1.65 10*3/uL 0.83-4.51 [facility] Lymphocytes/100 WBC Auto (Un sp spec)Ordered By: Renard Burgos on 06-24-2024 Lymphocytes/100 WBC (Bld) 12.8 % Low 19-41 [facility] MCV (mean corpuscular volume ) determinationOrdered By: Renard Burgos on 06-24-2024 MCV (RBC) [Entitic vol] 92.7 fL 80-94 [facility] Mean corpuscular hemoglobin (MCH) determinationOrdered By: Renard Burgos on 06-24-2024 MCH (RBC) [Entitic mass] 30.2 pg 27.0-32.0 [facility] Mean corpuscular hemoglobin concentration (MCHC) determinationOrdered By: Renard Burgos on 06-24-2024 MCHC (RBC) [Mass/Vol] 32.5 g/dL 32-36 [facility] Mean platelet volume determi nationOrdered By: Renard Burgos on 06-24-2024 Platelet mean volume (Bld) [Entitic vol] 11.3 fL 6.2-12.0 [facility] Monocyte percentageOrdered B y: Renard Burgos on 06-24-2024 Monocytes/100 WBC (Bld) 6.4 % 0-10 [facility] Neutrophil percentageOrdered By: Renard Burgos on 06-24-2024 Neutrophils/100 WBC (Bld) 79.0 % High 47-70 [facility] Nucleated red blood cell per centageOrdered By: Renard Burgos on 06-24-2024 Nucleated RBC/100 WBC (Bld) [Ratio] 0 % 0-5 [facility] Platelet countOrdered By: Garrick Bhatt on 06-24-2024 Platelets (Bld) [#/Vol] 171 10*3/uL 150-450 [facility] Potassium measurementOrdered By: Renard Burgos on 06-24-2024 Potassium [Moles/Vol] 4.1 mmol/L 3.5-5.1 [facility] RBC Auto (Bld) [#/Vol]Ordere d By: Renard Burgos on 06-24-2024 RBC (Bld) [#/Vol] 4.51 10*6/uL Low 4.6-6.2 [facility] Serum anion gap measurementO rdered By: Renard Burgos on 06-24-2024 Anion gap [Moles/Vol] 8 mmol/L 5-15 [facility] Serum or plasma calcium gordy urement (mass/volume)Ordered By: Renard Burgos on 06-24-2024 Calcium [Mass/Vol] 8.3 mg/dL Low 8.5-10.1 [facility] Serum or plasma creatinine m easurement (mass/volume)Ordered By: Renard Burgos on 06-24-2024 Creatinine [Mass/Vol] 0.60 mg/dL Low 0.70-1.30 [facility] Comment on above: The validity of the calculated GFR & GFRAA in patients over 70 years has not been determined. Clinical correlation is essential. Serum or plasma urea nitroge n measurement (mass/volume)Ordered By: Renard Burgos on 06-24-2024 Urea nitrogen [Mass/Vol] 15 mg/dL 7-18 [facility] Sodium levelOrdered By: Lamine Burgos on 06-24-2024 Sodium [Moles/Vol] 139 mmol/L 136-145 [facility] White blood cell (WBC) count Ordered By: Renard Burgos on 06-24-2024 WBC (Bld) [#/Vol] 12.9 10*3/uL High 4.4-11.0 [facility] Absolute lymphocyte countOrd ered By: Renard Burgos on 06-17-2024 Lymphocytes Auto (Unsp spec) [#/Vol] 2.00 10*3/uL 0.83-4.51 [facility] Absolute neutrophil countOrd ered By: Renard Burgos on 06-17-2024 Neutrophils (Bld) [#/Vol] 5.1 10*3/uL 2.0-7.7 [facility] Automated lymphocyte count a s percentage of total leukocytesOrdered By: Renard Burgos on 06-17-2024 Lymphocytes/100 WBC Auto (Unsp spec) 24.5 % 19-41 [facility] Basophil percentageOrdered B y: Renard Burgos on 06-17-2024 Basophils/100 WBC (Bld) 1.1 % High 0-1 [facility] CBC W/Diff, Automatedon 06-01 Absolute Lymph 2.00 X10 3/uL Normal 0.83-4.51 [facility] Comment on above: Order Comment: 109-1 Performed By: #### L 100.0100 ####[facility] [address] [place], [place], [id number] Absolute Neut 5.1 X10 3/uL Normal 2.0-7.7 [facility] Comment on above: Order Comment: 109-1 Performed By: #### L 100.0100 ####[facility] [address] [place], [address] Basophils/100 WBC (Bld) 1.1 % High 0-1 [facility] Comment on above: Order Comment: 109-1 Performed By: #### L 100.0100 ####[facility] [address] [place], [address] Eosinophils/100 WBC (Bld) 3.4 % Normal 0-5 [facility] Comment on above: Order Comment: 109-1 Performed By: #### L 100.0100 ####[facility] [address] [place], [address] Erythrocyte distribution width (RBC) [Ratio] 13.3 % Normal 11.6-14.6 [facility] Comment on above: Order Comment: 109-1 Performed By: #### L 100.0100 ####[facility] [address] [place], [address] Hematocrit (Bld) [Volume fraction] 39.3 % Low 40-54 [facility] Comment on above: Order Comment: 109-1 Performed By: #### L 100.0100 ####[facility] [address] [place], [address] Hemoglobin (Bld) [Mass/Vol] 12.8 g/dL Low 13.0-16.5 [facility] Comment on above: Order Comment: 109-1 Performed By: #### L 100.0100 ####[facility] [address] [place], [address] IG% 0.200 Normal 0.0-0.9 [facility] Comment on above: Order Comment: 109-1 Result Comment: IG% - Immature Granulocytes (promyelocytes, myelocytes andmetamyelocytes) > 1% indicates that a LEFT SHIFT is Present. Performed By: #### L 100.0100 ####[facility] [address] [place], [address] Lymphocytes/100 WBC (Bld) 24.5 % Normal 19-41 [facility] Comment on above: Order Comment: 109-1 Performed By: #### L 100.0100 ####[facility] [address] [place], [address] MCH (RBC) [Entitic mass] 29.6 pg Normal 27.0-32.0 [facility] Comment on above: Order Comment: 109-1 Performed By: #### L 100.0100 ####[facility] [address] [place], [address] MCHC (RBC) [Mass/Vol] 32.6 g/dL Normal 32-36 [facility] Comment on above: Order Comment: 109-1 Performed By: #### L 100.0100 ####[facility] [address] [place], [address] MCV (RBC) [Entitic vol] 90.8 fL Normal 80-94 [facility] Comment on above: Order Comment: 109-1 Performed By: #### L 100.0100 ####[facility] [address] [place], [address] Monocytes/100 WBC (Bld) 8.8 % Normal 0-10 [facility] Comment on above: Order Comment: 109-1 Performed By: #### L 100.0100 ####[facility] [address] [place], [address] Neutrophils/100 WBC (Bld) 62.0 % Normal 47-70 [facility] Comment on above: Order Comment: 109-1 Performed By: #### L 100.0100 ####[facility] [address] [place], [address] Nucleated RBC (Bld) [#/Vol] 0 10*3/uL Normal 0-5 [facility] Comment on above: Order Comment: 109-1 Performed By: #### L 100.0100 ####[facility] [address] [place], [address] Platelet mean volume (Bld) [Entitic vol] 10.9 fL Normal 6.2-12.0 [facility] Comment on above: Order Comment: 109-1 Performed By: #### L 100.0100 ####[facility] [address] [place], [address] Platelets (Bld) [#/Vol] 218 10*3/uL Normal 150-450 [facility] Comment on above: Order Comment: 109-1 Performed By: #### L 100.0100 ####[facility] [address] [place], [address] RBC (Bld) [#/Vol] 4.33 10*6/uL Low 4.6-6.2 [facility] Comment on above: Order Comment: 109-1 Performed By: #### L 100.0100 ####[facility] [address] [place], [address] RDW SD 44.0 fl High 35.1-43.9 [facility] Comment on above: Order Comment: 109-1 Performed By: #### L 100.0100 ####[facility] [address] [place], [address] WBC (Bld) [#/Vol] 8.2 10*3/uL Normal 4.4-11.0 [facility] Comment on above: Order Comment: 109-1 Performed By: #### L 100.0100 ####[facility] [address] [place], [address] Eosinophil percentageOrdered By: Renard Burgos on 06-17-2024 Eosinophils/100 WBC (Bld) 3.4 % 0-5 [facility] Erythrocyte distribution wid th ratioOrdered By: Renard Burgos on 06-17-2024 Erythrocyte distribution width (RBC) [Ratio] 13.3 % 11.6-14.6 [facility] Erythrocyte distribution wid th standard deviationOrdered By: Renard Burgos on 06-17-2024 Erythrocyte distribution width (RBC) [Entitic vol] 44.0 fL High 35.1-43.9 [facility] Erythrocyte distribution width (RBC) [Ratio] 44.0 fl High 35.1-43.9 [facility] Hematocrit Auto (Bld) [Volum e fraction]Ordered By: Renard Burgos on 06-17-2024 Hematocrit (Bld) [Volume fraction] 39.3 % Low 40-54 [facility] Hemoglobin measurementOrdere d By: Renard Burgos on 06-17-2024 Hemoglobin (Bld) [Mass/Vol] 12.8 g/dL Low 13.0-16.5 [facility] Immature granulocytes/100 WB C Auto (Bld)Ordered By: Renard Burgos on 06-17-2024 Immature granulocytes/100 WBC (Bld) 0.200 % 0.0-0.9 [facility] Comment on above: IG% - Immature Granu locytes (promyelocytes, myelocytes and metamyelocytes) > 1% indicates that a LEFT SHIFT is Present. Lymphocytes Auto (Unsp spec) [#/Vol]Ordered By: Renard Burgos on 06-17-2024 Lymphocytes (Bld) [#/Vol] 2.00 10*3/uL 0.83-4.51 [facility] Lymphocytes/100 WBC Auto (Un sp spec)Ordered By: Renard Burgos on 06-17-2024 Lymphocytes/100 WBC (Bld) 24.5 % 19-41 [facility] MCV (mean corpuscular volume ) determinationOrdered By: Renard Burgos on 06-17-2024 MCV (RBC) [Entitic vol] 90.8 fL 80-94 [facility] Mean corpuscular hemoglobin (MCH) determinationOrdered By: Renard Burgos on 06-17-2024 MCH (RBC) [Entitic mass] 29.6 pg 27.0-32.0 [facility] Mean corpuscular hemoglobin concentration (MCHC) determinationOrdered By: Renard Burgos on 06-17-2024 MCHC (RBC) [Mass/Vol] 32.6 g/dL 32-36 [facility] Mean platelet volume determi nationOrdered By: Renard Burgos on 06-17-2024 Platelet mean volume (Bld) [Entitic vol] 10.9 fL 6.2-12.0 [facility] Monocyte percentageOrdered B y: Renard Burgos on 06-17-2024 Monocytes/100 WBC (Bld) 8.8 % 0-10 [facility] Neutrophil percentageOrdered By: Renard Burgos on 06-17-2024 Neutrophils/100 WBC (Bld) 62.0 % 47-70 [facility] Nucleated red blood cell per centageOrdered By: Renard Burgos on 06-17-2024 Nucleated RBC/100 WBC (Bld) [Ratio] 0 % 0-5 [facility] Platelet countOrdered By: Garrick Bhatt on 06-17-2024 Platelets (Bld) [#/Vol] 218 10*3/uL 150-450 [facility] RBC Auto (Bld) [#/Vol]Ordere d By: Renard Burgos on 06-17-2024 RBC (Bld) [#/Vol] 4.33 10*6/uL Low 4.6-6.2 [facility] White blood cell (WBC) count Ordered By: Renard Burgos on 06-17-2024 WBC (Bld) [#/Vol] 8.2 10*3/uL 4.4-11.0 [facility] Absolute lymphocyte countOrd ered By: Renard Burgos on 06-10-2024 Lymphocytes Auto (Unsp spec) [#/Vol] 2.38 10*3/uL 0.83-4.51 [facility] Absolute neutrophil countOrd ered By: Renard Burgos on 06-10-2024 Neutrophils (Bld) [#/Vol] 5.3 10*3/uL 2.0-7.7 [facility] Automated lymphocyte count a s percentage of total leukocytesOrdered By: Renard Burgos on 06-10-2024 Lymphocytes/100 WBC Auto (Unsp spec) 27.5 % 19-41 [facility] Basophil percentageOrdered B y: Renard Burgos on 06-10-2024 Basophils/100 WBC (Bld) 0.7 % 0-1 [facility] CBC W/Diff, Automatedon 06-01 Absolute Lymph 2.38 X10 3/uL Normal 0.83-4.51 [facility] Comment on above: Order Comment: 109.1 Performed By: #### L 100.0100 ####[facility] [address] [place], [address] Absolute Neut 5.3 X10 3/uL Normal 2.0-7.7 [facility] Comment on above: Order Comment: 109.1 Performed By: #### L 100.0100 ####[facility] [address] [place], [address] Basophils/100 WBC (Bld) 0.7 % Normal 0-1 [facility] Comment on above: Order Comment: 109.1 Performed By: #### L 100.0100 ####[facility] [address] [place], [address] Eosinophils/100 WBC (Bld) 0.7 % Normal 0-5 [facility] Comment on above: Order Comment: 109.1 Performed By: #### L 100.0100 ####[facility] [address] [place], [address] Erythrocyte distribution width (RBC) [Ratio] 13.1 % Normal 11.6-14.6 [facility] Comment on above: Order Comment: 109.1 Performed By: #### L 100.0100 ####[facility] [address] [place], [address] Hematocrit (Bld) [Volume fraction] 41.1 % Normal 40-54 [facility] Comment on above: Order Comment: 109.1 Performed By: #### L 100.0100 ####[facility] [address] [place], [address] Hemoglobin (Bld) [Mass/Vol] 13.5 g/dL Normal 13.0-16.5 [facility] Comment on above: Order Comment: 109.1 Performed By: #### L 100.0100 ####[facility] [address] [place], [address] IG% 0.500 Normal 0.0-0.9 [facility] Comment on above: Order Comment: 109.1 Result Comment: IG% - Immature Granulocytes (promyelocytes, myelocytes andmetamyelocytes) > 1% indicates that a LEFT SHIFT is Present. Performed By: #### L 100.0100 ####[facility] [address] [place], [address] Lymphocytes/100 WBC (Bld) 27.5 % Normal 19-41 [facility] Comment on above: Order Comment: 109.1 Performed By: #### L 100.0100 ####[facility] [address] [place], [address] MCH (RBC) [Entitic mass] 30.1 pg Normal 27.0-32.0 [facility] Comment on above: Order Comment: 109.1 Performed By: #### L 100.0100 ####[facility] [address] [place], [address] MCHC (RBC) [Mass/Vol] 32.8 g/dL Normal 32-36 [facility] Comment on above: Order Comment: 109.1 Performed By: #### L 100.0100 ####[facility] [address] [place], [address] MCV (RBC) [Entitic vol] 91.7 fL Normal 80-94 [facility] Comment on above: Order Comment: 109.1 Performed By: #### L 100.0100 ####[facility] [address] [place], [address] Monocytes/100 WBC (Bld) 9.6 % Normal 0-10 [facility] Comment on above: Order Comment: 109.1 Performed By: #### L 100.0100 ####[facility] [address] [place], [address] Neutrophils/100 WBC (Bld) 61.0 % Normal 47-70 [facility] Comment on above: Order Comment: 109.1 Performed By: #### L 100.0100 ####[facility] [address] [place], [address] Nucleated RBC (Bld) [#/Vol] 0 10*3/uL Normal 0-5 [facility] Comment on above: Order Comment: 109.1 Performed By: #### L 100.0100 ####[facility] [address] [place], [address] Platelet mean volume (Bld) [Entitic vol] 11.0 fL Normal 6.2-12.0 [facility] Comment on above: Order Comment: 109.1 Performed By: #### L 100.0100 ####[facility] [address] [place], [address] Platelets (Bld) [#/Vol] 261 10*3/uL Normal 150-450 [facility] Comment on above: Order Comment: 109.1 Performed By: #### L 100.0100 ####[facility] [address] [place], [address] RBC (Bld) [#/Vol] 4.48 10*6/uL Low 4.6-6.2 [facility] Comment on above: Order Comment: 109.1 Performed By: #### L 100.0100 ####[facility] [address] [place], [address] RDW SD 43.2 fl Normal 35.1-43.9 [facility] Comment on above: Order Comment: 109.1 Performed By: #### L 100.0100 ####[facility] [address] [place], [address] WBC (Bld) [#/Vol] 8.6 10*3/uL Normal 4.4-11.0 [facility] Comment on above: Order Comment: 109.1 Performed By: #### L 100.0100 ####[facility] [address] [place], [address] Eosinophil percentageOrdered By: Renard Burgos on 06-10-2024 Eosinophils/100 WBC (Bld) 0.7 % 0-5 [facility] Erythrocyte distribution wid th ratioOrdered By: Renard Burgos on 06-10-2024 Erythrocyte distribution width (RBC) [Ratio] 13.1 % 11.6-14.6 [facility] Erythrocyte distribution wid th standard deviationOrdered By: Renard Burgos on 06-10-2024 Erythrocyte distribution width (RBC) [Entitic vol] 43.2 fL 35.1-43.9 [facility] Erythrocyte distribution width (RBC) [Ratio] 43.2 fl 35.1-43.9 [facility] Hematocrit Auto (Bld) [Volum e fraction]Ordered By: Renard Burgos on 06-10-2024 Hematocrit (Bld) [Volume fraction] 41.1 % 40-54 [facility] Hemoglobin measurementOrdere d By: Renard Burgos on 06-10-2024 Hemoglobin (Bld) [Mass/Vol] 13.5 g/dL 13.0-16.5 [facility] Immature granulocytes/100 WB C Auto (Bld)Ordered By: Renard Burgos on 06-10-2024 Immature granulocytes/100 WBC (Bld) 0.500 % 0.0-0.9 [facility] Comment on above: IG% - Immature Granu locytes (promyelocytes, myelocytes and metamyelocytes) > 1% indicates that a LEFT SHIFT is Present. Lymphocytes Auto (Unsp spec) [#/Vol]Ordered By: Renard Burgos on 06-10-2024 Lymphocytes (Bld) [#/Vol] 2.38 10*3/uL 0.83-4.51 [facility] Lymphocytes/100 WBC Auto (Un sp spec)Ordered By: Renard Bugros on 06-10-2024 Lymphocytes/100 WBC (Bld) 27.5 % 19-41 [facility] MCV (mean corpuscular volume ) determinationOrdered By: Renard Burgos on 06-10-2024 MCV (RBC) [Entitic vol] 91.7 fL 80-94 [facility] Mean corpuscular hemoglobin (MCH) determinationOrdered By: Renard Burgos on 06-10-2024 MCH (RBC) [Entitic mass] 30.1 pg 27.0-32.0 [facility] Mean corpuscular hemoglobin concentration (MCHC) determinationOrdered By: Renard Burgos on 06-10-2024 MCHC (RBC) [Mass/Vol] 32.8 g/dL 32-36 [facility] Mean platelet volume determi nationOrdered By: Renard Burgos on 06-10-2024 Platelet mean volume (Bld) [Entitic vol] 11.0 fL 6.2-12.0 [facility] Monocyte percentageOrdered B y: Renard Burgos on 06-10-2024 Monocytes/100 WBC (Bld) 9.6 % 0-10 [facility] Neutrophil percentageOrdered By: Renard Burgos on 06-10-2024 Neutrophils/100 WBC (Bld) 61.0 % 47-70 [facility] Nucleated red blood cell per centageOrdered By: Renard Burgos on 06-10-2024 Nucleated RBC/100 WBC (Bld) [Ratio] 0 % 0-5 [facility] Platelet countOrdered By: Garrick Bhatt on 06-10-2024 Platelets (Bld) [#/Vol] 261 10*3/uL 150-450 [facility] RBC Auto (Bld) [#/Vol]Ordere d By: Renard Burgos on 06-10-2024 RBC (Bld) [#/Vol] 4.48 10*6/uL Low 4.6-6.2 [facility] Urine Cultureon 06-10-2024 URC Normal [facility] Comment on above: Performed By: #### M 100.2200, L400.0001 ####[facility] [address] [place], [place], [id number] White blood cell (WBC) count Ordered By: Renard Burgos on 06-10-2024 WBC (Bld) [#/Vol] 8.6 10*3/uL 4.4-11.0 [facility] Bilirubin Test strip Ql (U)O rdered By: Renard Burgos on 06-07-2024 Bilirubin Ql (U) Negative Negative [facility] CBC-Complete Blood Cnt No Di ffon 06-07-2024 Erythrocyte distribution width (RBC) [Ratio] 13.0 % Normal 11.6-14.6 [facility] Comment on above: Order Comment: 109-1 Performed By: #### L 100.0500 ####[facility] [address] [place], [address] Hematocrit (Bld) [Volume fraction] 39.3 % Low 40-54 [facility] Comment on above: Order Comment: 109-1 Performed By: #### L 100.0500 ####[facility] [address] [place], [address] Hemoglobin (Bld) [Mass/Vol] 13.0 g/dL Normal 13.0-16.5 [facility] Comment on above: Order Comment: 109-1 Performed By: #### L 100.0500 ####[facility] [address] [place], [address] MCH (RBC) [Entitic mass] 30.2 pg Normal 27.0-32.0 [facility] Comment on above: Order Comment: 109-1 Performed By: #### L 100.0500 ####[facility] [address] [place], [address] MCHC (RBC) [Mass/Vol] 33.1 g/dL Normal 32-36 [facility] Comment on above: Order Comment: 109-1 Performed By: #### L 100.0500 ####[facility] [address] [place], [address] MCV (RBC) [Entitic vol] 91.2 fL Normal 80-94 [facility] Comment on above: Order Comment: 109-1 Performed By: #### L 100.0500 ####[facility] [address] [place], [address] Platelet mean volume (Bld) [Entitic vol] 10.8 fL Normal 6.2-12.0 [facility] Comment on above: Order Comment: 109-1 Performed By: #### L 100.0500 ####[facility] [address] [place], [address] Platelets (Bld) [#/Vol] 251 10*3/uL Normal 150-450 [facility] Comment on above: Order Comment: 109-1 Performed By: #### L 100.0500 ####[facility] [address] [place], [address] RBC (Bld) [#/Vol] 4.31 10*6/uL Low 4.6-6.2 [facility] Comment on above: Order Comment: 109-1 Performed By: #### L 100.0500 ####[facility] [address] [place], [address] RDW SD 43.7 fl Normal 35.1-43.9 [facility] Comment on above: Order Comment: 109-1 Performed By: #### L 100.0500 ####[facility] [address] [place], [address] WBC (Bld) [#/Vol] 9.9 10*3/uL Normal 4.4-11.0 [facility] Comment on above: Order Comment: 109-1 Performed By: #### L 100.0500 ####[facility] [address] [place], [address] Epithelial cells.squamous LM Ql (Urine sed)Ordered By: Renard Burgos on 06-07-2024 Epithelial cells.squamous LM.HPF (Urine sed) [#/Area] 0 /[HPF] 0-5 [facility] Erythrocyte distribution wid th ratioOrdered By: Renard Burgos on 06-07-2024 Erythrocyte distribution width (RBC) [Ratio] 13.0 % 11.6-14.6 [facility] Erythrocyte distribution wid th standard deviationOrdered By: Renard Burgos on 06-07-2024 Erythrocyte distribution width (RBC) [Entitic vol] 43.7 fL 35.1-43.9 [facility] Erythrocyte distribution width (RBC) [Ratio] 43.7 fl 35.1-43.9 [facility] Glucose Ql (U)Ordered By: Garrick Bhatt on 06-07-2024 Urine Glucose (UA) Normal mg/dl Normal [facility] Hematocrit Auto (Bld) [Volum e fraction]Ordered By: Renard Burgos on 06-07-2024 Hematocrit (Bld) [Volume fraction] 39.3 % Low 40-54 [facility] Hemoglobin measurementOrdere d By: Renard Burgos on 06-07-2024 Hemoglobin (Bld) [Mass/Vol] 13.0 g/dL 13.0-16.5 [facility] Ketones Test strip Ql (U)Ord ered By: Renard Burgos on 06-07-2024 Ketones Ql (U) Negative Negative [facility] MCV (mean corpuscular volume ) determinationOrdered By: Renard Burgos on 06-07-2024 MCV (RBC) [Entitic vol] 91.2 fL 80-94 [facility] Mean corpuscular hemoglobin (MCH) determinationOrdered By: Renard Burgos on 06-07-2024 MCH (RBC) [Entitic mass] 30.2 pg 27.0-32.0 [facility] Mean corpuscular hemoglobin concentration (MCHC) determinationOrdered By: Renard Burgos on 06-07-2024 MCHC (RBC) [Mass/Vol] 33.1 g/dL 32-36 [facility] Mean platelet volume determi nationOrdered By: Renard Burgos on 06-07-2024 Platelet mean volume (Bld) [Entitic vol] 10.8 fL 6.2-12.0 [facility] Microscopic analysis of urin e for red blood cells (RBC)Ordered By: Renard Burgos on 06-07-2024 Microscopic analysis of urine for red blood cells (RBC) 0 SEEN /hpf 0-5 [facility] Urine RBC 0 SEEN /hpf 0-5 [facility] Mucus LM Ql (Urine sed)Order ed By: Renard Burgos on 06-07-2024 Mucus Ql (Urine sed) 0 SEEN /hpf [facility] Nitrite Test strip Ql (U)Ord ered By: Renard Burgos on 06-07-2024 Nitrite Ql (U) Negative Negative [facility] Platelet countOrdered By: Garrick Bhatt on 06-07-2024 Platelets (Bld) [#/Vol] 251 10*3/uL 150-450 [facility] Protein Test strip Ql (U)Ord ered By: Renard Burgos on 06-07-2024 Protein Ql (U) 15 mg/dl High Negative [facility] RBC Auto (Bld) [#/Vol]Ordere d By: Renard Burgos on 06-07-2024 RBC (Bld) [#/Vol] 4.31 10*6/uL Low 4.6-6.2 [facility] Squamous epithelial cells de tection in urine sediment by light microscopyOrdered By: Renard Burgos on 06-07-2024 Epithelial cells.squamous LM Ql (Urine sed) 0-5 SEEN /hpf 0-5 [facility] Urinalysis, Completeon 06-07 Mucus Ql (Urine sed) 0 SEEN Normal [facility] Comment on above: Order Comment: CLEAN CATCH Performed By: #### M 100.2200, L400.0001 ####[facility] [address] [place], [place], [id number] Urine blood detectionOrdered By: Renard Burgos on 06-07-2024 Urine Occult Blood Negative Negative [facility] Urine clarityOrdered By: Lyubov Burgos on 06-07-2024 Clarity (U) Clear Clear [facility] Urine color determinationOrd ered By: Renard Burgos on 06-07-2024 Color (U) Yellow Yellow [facility] Urine cultureOrdered By: Lyubov Burgos on 06-07-2024 Bacteria identified Cx Nom (U) Pseudomonas aeruginosa Abnormal [facility] Bacteria identified Cx Nom (U) Pseudomonas aeruginosa Abnormal [facility] Urine glucose detectionOrder ed By: Renard Burgos on 06-07-2024 Glucose Ql (U) Normal mg/dl Normal [facility] Urine leukocyte esterase det ection by dipstickOrdered By: Renard Burgos on 06-07-2024 Leukocyte esterase Test strip Ql (U) Negative Negative [facility] Urine pHOrdered By: Renard ocampo on 06-07-2024 pH (U) 7.0 [pH] 5.0 - 8.0 [facility] Urine sediment bacteria coun t by microscopy (number/high power field)Ordered By: Renard Burgos on 06-07-2024 Bacteria LM.HPF (Urine sed) [#/Area] 2 /[HPF] None Seen [facility] Urine sediment yeast count b y microscopy (number/high powered field)Ordered By: Renard Burgos on 06-07-2024 Yeast LM.HPF (Urine sed) [#/Area] 1 /[HPF] None Seen [facility] Urine specific gravity measu rementOrdered By: Renard Burgos on 06-07-2024 Specific gravity (U) [Rel density] 1.010 1.002-1.030 [facility] Urine urobilinogen measureme ntOrdered By: Renard Burgos on 06-07-2024 Urobilinogen Ql (U) 1 mg/dl High Normal [facility] Urobilinogen Ql (U)Ordered B y: Renard Burgos on 06-07-2024 Urobilinogen (U) [Mass/Vol] 1 mg/dL High Normal [facility] White blood cell (WBC) count Ordered By: Renard Burgos on 06-07-2024 WBC (Bld) [#/Vol] 9.9 10*3/uL 4.4-11.0 [facility] White blood cell countOrdere d By: Renard Burgos on 06-07-2024 Urine WBC 0-5 SEEN /hpf 0-5 [facility] White blood cell count 0-5 SEEN /hpf 0-5 [facility] Yeast LM.HPF (Urine sed) [#/ Area]Ordered By: Renard Burgos on 06-07-2024 Urine Yeast 1+ /hpf None Seen [facility] Absolute lymphocyte countOrd ered By: Renard Burgos on 06-03-2024 Lymphocytes Auto (Unsp spec) [#/Vol] 1.94 10*3/uL 0.83-4.51 [facility] Absolute neutrophil countOrd ered By: Renard Burgos on 06-03-2024 Neutrophils (Bld) [#/Vol] 9.5 10*3/uL High 2.0-7.7 [facility] Automated lymphocyte count a s percentage of total leukocytesOrdered By: Renard Burgos on 06-03-2024 Lymphocytes/100 WBC Auto (Unsp spec) 15.7 % Low 19-41 [facility] Basophil percentageOrdered B y: Renard Burgos on 06-03-2024 Basophils/100 WBC (Bld) 0.5 % 0-1 [facility] CBC W/Diff, Automatedon Absolute Lymph 1.94 X10 3/uL Normal 0.83-4.51 [facility] Comment on above: Order Comment: 109-1 Performed By: #### L 100.0100 ####[facility] [address] [place], [address] Absolute Neut 9.5 X10 3/uL High 2.0-7.7 [facility] Comment on above: Order Comment: 109-1 Performed By: #### L 100.0100 ####[facility] [address] [place], [address] Basophils/100 WBC (Bld) 0.5 % Normal 0-1 [facility] Comment on above: Order Comment: 109-1 Performed By: #### L 100.0100 ####[facility] [address] [place], [address] Eosinophils/100 WBC (Bld) 0.3 % Normal 0-5 [facility] Comment on above: Order Comment: 109-1 Performed By: #### L 100.0100 ####[facility] [address] [place], [address] Erythrocyte distribution width (RBC) [Ratio] 13.0 % Normal 11.6-14.6 [facility] Comment on above: Order Comment: 109-1 Performed By: #### L 100.0100 ####[facility] [address] [place], [address] Hematocrit (Bld) [Volume fraction] 40.1 % Normal 40-54 [facility] Comment on above: Order Comment: 109-1 Performed By: #### L 100.0100 ####[facility] [address] [place], [address] Hemoglobin (Bld) [Mass/Vol] 13.2 g/dL Normal 13.0-16.5 [facility] Comment on above: Order Comment: 109-1 Performed By: #### L 100.0100 ####[facility] [address] [place], [address] IG% 0.400 Normal 0.0-0.9 [facility] Comment on above: Order Comment: 109-1 Result Comment: IG% - Immature Granulocytes (promyelocytes, myelocytes andmetamyelocytes) > 1% indicates that a LEFT SHIFT is Present. Performed By: #### L 100.0100 ####[facility] [address] [place], [address] Lymphocytes/100 WBC (Bld) 15.7 % Low 19-41 [facility] Comment on above: Order Comment: 109-1 Performed By: #### L 100.0100 ####[facility] [address] [place], [address] MCH (RBC) [Entitic mass] 30.1 pg Normal 27.0-32.0 [facility] Comment on above: Order Comment: 109-1 Performed By: #### L 100.0100 ####[facility] [address] [place], [address] MCHC (RBC) [Mass/Vol] 32.9 g/dL Normal 32-36 [facility] Comment on above: Order Comment: 109-1 Performed By: #### L 100.0100 ####[facility] [address] [place], [address] MCV (RBC) [Entitic vol] 91.3 fL Normal 80-94 [facility] Comment on above: Order Comment: 109-1 Performed By: #### L 100.0100 ####[facility] [address] [place], [address] Monocytes/100 WBC (Bld) 6.6 % Normal 0-10 [facility] Comment on above: Order Comment: 109-1 Performed By: #### L 100.0100 ####[facility] [address] [place], [address] Neutrophils/100 WBC (Bld) 76.5 % High 47-70 [facility] Comment on above: Order Comment: 109-1 Performed By: #### L 100.0100 ####[facility] [address] [place], [address] Nucleated RBC (Bld) [#/Vol] 0 10*3/uL Normal 0-5 [facility] Comment on above: Order Comment: 109-1 Performed By: #### L 100.0100 ####[facility] [address] [place], [address] Platelet mean volume (Bld) [Entitic vol] 11.1 fL Normal 6.2-12.0 [facility] Comment on above: Order Comment: 109-1 Performed By: #### L 100.0100 ####[facility] [address] [place], [address] Platelets (Bld) [#/Vol] 249 10*3/uL Normal 150-450 [facility] Comment on above: Order Comment: 109-1 Performed By: #### L 100.0100 ####[facility] [address] [place], [address] RBC (Bld) [#/Vol] 4.39 10*6/uL Low 4.6-6.2 [facility] Comment on above: Order Comment: 109-1 Performed By: #### L 100.0100 ####[facility] [address] [place], [address] RDW SD 42.8 fl Normal 35.1-43.9 [facility] Comment on above: Order Comment: 109-1 Performed By: #### L 100.0100 ####[facility] [address] [place], [address] WBC (Bld) [#/Vol] 12.4 10*3/uL High 4.4-11.0 [facility] Comment on above: Order Comment: 109-1 Performed By: #### L 100.0100 ####[facility] [address] [place], [address] Eosinophil percentageOrdered By: Renrad Burgos on 06-03-2024 Eosinophils/100 WBC (Bld) 0.3 % 0-5 [facility] Erythrocyte distribution wid th ratioOrdered By: Renard Burgos on 06-03-2024 Erythrocyte distribution width (RBC) [Ratio] 13.0 % 11.6-14.6 [facility] Erythrocyte distribution wid th standard deviationOrdered By: Renard Burgos on 06-03-2024 Erythrocyte distribution width (RBC) [Entitic vol] 42.8 fL 35.1-43.9 [facility] Erythrocyte distribution width (RBC) [Ratio] 42.8 fl 35.1-43.9 [facility] Hematocrit Auto (Bld) [Volum e fraction]Ordered By: Renard Burgos on 06-03-2024 Hematocrit (Bld) [Volume fraction] 40.1 % 40-54 [facility] Hemoglobin measurementOrdere d By: Renard Burgos on 06-03-2024 Hemoglobin (Bld) [Mass/Vol] 13.2 g/dL 13.0-16.5 [facility] Immature granulocytes/100 WB C Auto (Bld)Ordered By: Renard Burgos on 06-03-2024 Immature granulocytes/100 WBC (Bld) 0.400 % 0.0-0.9 [facility] Comment on above: IG% - Immature Granu locytes (promyelocytes, myelocytes and metamyelocytes) > 1% indicates that a LEFT SHIFT is Present. Lymphocytes Auto (Unsp spec) [#/Vol]Ordered By: Renard Burgos on 06-03-2024 Lymphocytes (Bld) [#/Vol] 1.94 10*3/uL 0.83-4.51 [facility] Lymphocytes/100 WBC Auto (Un sp spec)Ordered By: Renard Burgos on 06-03-2024 Lymphocytes/100 WBC (Bld) 15.7 % Low 19-41 [facility] MCV (mean corpuscular volume ) determinationOrdered By: Renard Burgos on 06-03-2024 MCV (RBC) [Entitic vol] 91.3 fL 80-94 [facility] Mean corpuscular hemoglobin (MCH) determinationOrdered By: Renard Bugros on 06-03-2024 MCH (RBC) [Entitic mass] 30.1 pg 27.0-32.0 [facility] Mean corpuscular hemoglobin concentration (MCHC) determinationOrdered By: Renard Burgos on 06-03-2024 MCHC (RBC) [Mass/Vol] 32.9 g/dL 32-36 [facility] Mean platelet volume determi nationOrdered By: Renard Burgos on 06-03-2024 Platelet mean volume (Bld) [Entitic vol] 11.1 fL 6.2-12.0 [facility] Monocyte percentageOrdered B y: Renard Burgos on 06-03-2024 Monocytes/100 WBC (Bld) 6.6 % 0-10 [facility] Neutrophil percentageOrdered By: Renard Burgos on 06-03-2024 Neutrophils/100 WBC (Bld) 76.5 % High 47-70 [facility] Nucleated red blood cell per centageOrdered By: Renard Burgos on 06-03-2024 Nucleated RBC/100 WBC (Bld) [Ratio] 0 % 0-5 [facility] Platelet countOrdered By: Garrick Bhatt on 06-03-2024 Platelets (Bld) [#/Vol] 249 10*3/uL 150-450 [facility] RBC Auto (Bld) [#/Vol]Ordere d By: Renard Burgos on 06-03-2024 RBC (Bld) [#/Vol] 4.39 10*6/uL Low 4.6-6.2 [facility] White blood cell (WBC) count Ordered By: Renard Burgos on 06-03-2024 WBC (Bld) [#/Vol] 12.4 10*3/uL High 4.4-11.0 [facility] Absolute lymphocyte countOrd ered By: Renard Burgos on 05-27-2024 Lymphocytes Auto (Unsp spec) [#/Vol] 1.81 10*3/uL 0.83-4.51 [facility] Absolute neutrophil countOrd ered By: Renard Burgos on 05-27-2024 Neutrophils (Bld) [#/Vol] 5.0 10*3/uL 2.0-7.7 [facility] Automated lymphocyte count a s percentage of total leukocytesOrdered By: Renard Burgos on 05-27-2024 Lymphocytes/100 WBC Auto (Unsp spec) 24.4 % 19-41 [facility] Basophil percentageOrdered B y: Renard Burgos on 05-27-2024 Basophils/100 WBC (Bld) 0.5 % 0-1 [facility] CBC W/Diff, Automatedon 05-02 Absolute Lymph 1.81 X10 3/uL Normal 0.83-4.51 [facility] Comment on above: Order Comment: 109.1 Performed By: #### L 100.0100 ####[facility] [address] [facility] [place], [address] Absolute Neut 5.0 X10 3/uL Normal 2.0-7.7 [facility] Comment on above: Order Comment: 109.1 Performed By: #### L 100.0100 ####[facility] [address] [place], [address] Basophils/100 WBC (Bld) 0.5 % Normal 0-1 [facility] Comment on above: Order Comment: 109.1 Performed By: #### L 100.0100 ####[facility] [address] [place], [address] Eosinophils/100 WBC (Bld) 0.5 % Normal 0-5 [facility] Comment on above: Order Comment: 109.1 Performed By: #### L 100.0100 ####[facility] [address] [place], [address] Erythrocyte distribution width (RBC) [Ratio] 12.8 % Normal 11.6-14.6 [facility] Comment on above: Order Comment: 109.1 Performed By: #### L 100.0100 ####[facility] [address] [place], [address] Hematocrit (Bld) [Volume fraction] 39.8 % Low 40-54 [facility] Comment on above: Order Comment: 109.1 Performed By: #### L 100.0100 ####[facility] [address] [place], [address] Hemoglobin (Bld) [Mass/Vol] 13.2 g/dL Normal 13.0-16.5 [facility] Comment on above: Order Comment: 109.1 Performed By: #### L 100.0100 ####[facility] [address] [place], [address] IG% 0.400 Normal 0.0-0.9 [facility] Comment on above: Order Comment: 109.1 Result Comment: IG% - Immature Granulocytes (promyelocytes, myelocytes andmetamyelocytes) > 1% indicates that a LEFT SHIFT is Present. Performed By: #### L 100.0100 ####[facility] [address] [place], [address] Lymphocytes/100 WBC (Bld) 24.4 % Normal 19-41 [facility] Comment on above: Order Comment: 109.1 Performed By: #### L 100.0100 ####[facility] [address] [place], [address] MCH (RBC) [Entitic mass] 30.2 pg Normal 27.0-32.0 [facility] Comment on above: Order Comment: 109.1 Performed By: #### L 100.0100 ####[facility] [address] [place], [address] MCHC (RBC) [Mass/Vol] 33.2 g/dL Normal 32-36 [facility] Comment on above: Order Comment: 109.1 Performed By: #### L 100.0100 ####[facility] [address] [place], [address] MCV (RBC) [Entitic vol] 91.1 fL Normal 80-94 [facility] Comment on above: Order Comment: 109.1 Performed By: #### L 100.0100 ####[facility] [address] [place], [address] Monocytes/100 WBC (Bld) 7.0 % Normal 0-10 [facility] Comment on above: Order Comment: 109.1 Performed By: #### L 100.0100 ####[facility] [address] [place], [address] Neutrophils/100 WBC (Bld) 67.2 % Normal 47-70 [facility] Comment on above: Order Comment: 109.1 Performed By: #### L 100.0100 ####[facility] [address] [place], [address] Nucleated RBC (Bld) [#/Vol] 0 10*3/uL Normal 0-5 [facility] Comment on above: Order Comment: 109.1 Performed By: #### L 100.0100 ####[facility] [address] [place], [address] Platelet mean volume (Bld) [Entitic vol] 10.3 fL Normal 6.2-12.0 [facility] Comment on above: Order Comment: 109.1 Performed By: #### L 100.0100 ####[facility] [address] [place], [address] Platelets (Bld) [#/Vol] 239 10*3/uL Normal 150-450 [facility] Comment on above: Order Comment: 109.1 Performed By: #### L 100.0100 ####[facility] [address] [place], [address] RBC (Bld) [#/Vol] 4.37 10*6/uL Low 4.6-6.2 [facility] Comment on above: Order Comment: 109.1 Performed By: #### L 100.0100 ####[facility] [address] [place], [address] RDW SD 42.5 fl Normal 35.1-43.9 [facility] Comment on above: Order Comment: 109.1 Performed By: #### L 100.0100 ####[facility] [address] [place], [address] WBC (Bld) [#/Vol] 7.4 10*3/uL Normal 4.4-11.0 [facility] Comment on above: Order Comment: 109.1 Performed By: #### L 100.0100 ####[facility] [address] [place], [address] Eosinophil percentageOrdered By: Renard Burgos on 05-27-2024 Eosinophils/100 WBC (Bld) 0.5 % 0-5 [facility] Erythrocyte distribution wid th ratioOrdered By: Renard Burgos on 05-27-2024 Erythrocyte distribution width (RBC) [Ratio] 12.8 % 11.6-14.6 [facility] Erythrocyte distribution wid th standard deviationOrdered By: Renard Burgos on 05-27-2024 Erythrocyte distribution width (RBC) [Entitic vol] 42.5 fL 35.1-43.9 [facility] Erythrocyte distribution width (RBC) [Ratio] 42.5 fl 35.1-43.9 [facility] Hematocrit Auto (Bld) [Volum e fraction]Ordered By: Renard Burgos on 05-27-2024 Hematocrit (Bld) [Volume fraction] 39.8 % Low 40-54 [facility] Hemoglobin measurementOrdere d By: Renard Burgos on 05-27-2024 Hemoglobin (Bld) [Mass/Vol] 13.2 g/dL 13.0-16.5 [facility] Immature granulocytes/100 WB C Auto (Bld)Ordered By: Renard Burgos on 05-27-2024 Immature granulocytes/100 WBC (Bld) 0.400 % 0.0-0.9 [facility] Comment on above: IG% - Immature Granu locytes (promyelocytes, myelocytes and metamyelocytes) > 1% indicates that a LEFT SHIFT is Present. Lymphocytes Auto (Unsp spec) [#/Vol]Ordered By: Renard Burgos on 05-27-2024 Lymphocytes (Bld) [#/Vol] 1.81 10*3/uL 0.83-4.51 [facility] Lymphocytes/100 WBC Auto (Un sp spec)Ordered By: Renard Burgos on 05-27-2024 Lymphocytes/100 WBC (Bld) 24.4 % 19-41 [facility] MCV (mean corpuscular volume ) determinationOrdered By: Renard Burgos on 05-27-2024 MCV (RBC) [Entitic vol] 91.1 fL 80-94 [facility] Mean corpuscular hemoglobin (MCH) determinationOrdered By: Renard Burgos on 05-27-2024 MCH (RBC) [Entitic mass] 30.2 pg 27.0-32.0 [facility] Mean corpuscular hemoglobin concentration (MCHC) determinationOrdered By: Renard Burgos on 05-27-2024 MCHC (RBC) [Mass/Vol] 33.2 g/dL 32-36 [facility] Mean platelet volume determi nationOrdered By: Renard Burgos on 05-27-2024 Platelet mean volume (Bld) [Entitic vol] 10.3 fL 6.2-12.0 [facility] Monocyte percentageOrdered B y: Renard Burgos on 05-27-2024 Monocytes/100 WBC (Bld) 7.0 % 0-10 [facility] Neutrophil percentageOrdered By: Renard Burgos on 05-27-2024 Neutrophils/100 WBC (Bld) 67.2 % 47-70 [facility] Nucleated red blood cell per centageOrdered By: Renard Burgos on 05-27-2024 Nucleated RBC/100 WBC (Bld) [Ratio] 0 % 0-5 [facility] Platelet countOrdered By: Garrick Bhatt on 05-27-2024 Platelets (Bld) [#/Vol] 239 10*3/uL 150-450 [facility] RBC Auto (Bld) [#/Vol]Ordere d By: Renard Burgos on 05-27-2024 RBC (Bld) [#/Vol] 4.37 10*6/uL Low 4.6-6.2 [facility] White blood cell (WBC) count Ordered By: Renard Burgos on 05-27-2024 WBC (Bld) [#/Vol] 7.4 10*3/uL 4.4-11.0 [facility] Absolute lymphocyte countOrd ered By: Renard Burgos on 05-20-2024 Lymphocytes Auto (Unsp spec) [#/Vol] 1.73 10*3/uL 0.83-4.51 [facility] Absolute neutrophil countOrd ered By: Renard Burgos on 05-20-2024 Neutrophils (Bld) [#/Vol] 7.0 10*3/uL 2.0-7.7 [facility] Automated blood erythrocyte countOrdered By: Renard Burgos on 05-20-2024 RBC (Bld) [#/Vol] 4.74 10*6/uL Normal 4.6-6.2 [facility] Comment on above: Order Comment: 109-1 Performed By: #### L 100.0100 ####[facility] [address] [place], [place], [id number] Automated blood hematocrit ( percentage)Ordered By: Renard Burgos on 05-20-2024 Hematocrit (Bld) [Volume fraction] 43.6 % Normal 40-54 [facility] Comment on above: Order Comment: 109-1 Performed By: #### L 100.0100 ####[facility] [address] [facility] [place], [place], [id number] Automated lymphocyte count a s percentage of total leukocytesOrdered By: Renard Burgos on 05-20-2024 Lymphocytes/100 WBC (Bld) 17.7 % Low - [facility] Comment on above: Order Comment: 109-1 Performed By: #### L 100.0100 ####[facility] [address] [place], [address] Lymphocytes/100 WBC Auto (Unsp spec) 17.7 % Low [facility] Basophil percentageOrdered B y: Renard Burgos on 05-20-2024 Basophils/100 WBC (Bld) 0.5 % Normal 0-1 [facility] Comment on above: Order Comment: 109-1 Performed By: #### L 100.0100 ####[facility] [address] [place], [address] CBC W/Diff, Automatedon - Absolute Lymph 1.73 X10 3/uL Normal 0.83-4.51 [facility] Comment on above: Order Comment: 109-1 Performed By: #### L 100.0100 ####[facility] [address] [place], [address] Absolute Neut 7.0 X10 3/uL Normal 2.0-7.7 [facility] Comment on above: Order Comment: 109-1 Performed By: #### L 100.0100 ####[facility] [address] [place], [address] IG% 0.500 Normal 0.0-0.9 [facility] Comment on above: Order Comment: 109-1 Result Comment: IG% - Immature Granulocytes (promyelocytes, myelocytes andmetamyelocytes) > 1% indicates that a LEFT SHIFT is Present. Performed By: #### L 100.0100 ####[facility] [address] [place], [address] Nucleated RBC (Bld) [#/Vol] 0 10*3/uL Normal 0-5 [facility] Comment on above: Order Comment: 109-1 Performed By: #### L 100.0100 ####[facility] [address] [place], [place], [phone] RDW SD 42.5 fl Normal 35.1-43.9 [facility] Comment on above: Order Comment: 109-1 Performed By: #### L 100.0100 ####[facility] [address] [place], [address] Eosinophil percentageOrdered By: Renard Burgos on 05-20-2024 Eosinophils/100 WBC (Bld) 0.5 % Normal 0-5 [facility] Comment on above: Order Comment: 109-1 Performed By: #### L 100.0100 ####[facility] [address] [place], [address] Erythrocyte distribution wid th ratioOrdered By: Renard Burgos on 05-20-2024 Erythrocyte distribution width (RBC) [Ratio] 12.6 % Normal 11.6-14.6 [facility] Comment on above: Order Comment: 109-1 Performed By: #### L 100.0100 ####[facility] [address] [place], [place], [phone] Erythrocyte distribution wid th standard deviationOrdered By: Renard Burgos on 05-20-2024 Erythrocyte distribution width (RBC) [Entitic vol] 42.5 fL 35.1-43.9 [facility] Erythrocyte distribution width (RBC) [Ratio] 42.5 fl 35.1-43.9 [facility] Hemoglobin measurementOrdere d By: Renard Burgos on 05-20-2024 Hemoglobin (Bld) [Mass/Vol] 14.4 g/dL Normal 13.0-16.5 [facility] Comment on above: Order Comment: 109-1 Performed By: #### L 100.0100 ####[facility] [address] [place], [address] Immature granulocytes/100 WB C Auto (Bld)Ordered By: Renard Burgos on 05-20-2024 Immature granulocytes/100 WBC (Bld) 0.500 % 0.0-0.9 [facility] Comment on above: IG% - Immature Granu locytes (promyelocytes, myelocytes and metamyelocytes) > 1% indicates that a LEFT SHIFT is Present. Lymphocytes Auto (Unsp spec) [#/Vol]Ordered By: Renard Burgos on 05-20-2024 Lymphocytes (Bld) [#/Vol] 1.73 10*3/uL 0.83-4.51 [facility] MCV (mean corpuscular volume ) determinationOrdered By: Renard Burgos on 05-20-2024 MCV (RBC) [Entitic vol] 92.0 fL Normal 80-94 [facility] Comment on above: Order Comment: 109-1 Performed By: #### L 100.0100 ####[facility] [address] [place], [place], [phone]) Mean corpuscular hemoglobin (MCH) determinationOrdered By: Renard Burgos on 05-20-2024 MCH (RBC) [Entitic mass] 30.4 pg Normal 27.0-32.0 [facility] Comment on above: Order Comment: 109-1 Performed By: #### L 100.0100 ####[facility] [address] [address] [place], [place], [id number] Mean corpuscular hemoglobin concentration (MCHC) determinationOrdered By: Renard Burgos on 05-20-2024 MCHC (RBC) [Mass/Vol] 33.0 g/dL Normal 32-36 [facility] Comment on above: Order Comment: 109-1 Performed By: #### L 100.0100 ####[facility] [address] [place], [address] Mean platelet volume determi nationOrdered By: Renard Burgos on 05-20-2024 Platelet mean volume (Bld) [Entitic vol] 10.7 fL Normal 6.2-12.0 [facility] Comment on above: Order Comment: 109-1 Performed By: #### L 100.0100 ####[facility] [address] [place], [address] Monocyte percentageOrdered B y: Renard Burgos on 05-20-2024 Monocytes/100 WBC (Bld) 9.4 % Normal 0-10 [facility] Comment on above: Order Comment: 109-1 Performed By: #### L 100.0100 ####[facility] [address] [place], [address] Neutrophil percentageOrdered By: Renard Burgos on 05-20-2024 Neutrophils/100 WBC (Bld) 71.4 % High 47-70 [facility] Comment on above: Order Comment: 109-1 Performed By: #### L 100.0100 ####[facility] [address] [place], [address] Nucleated red blood cell per centageOrdered By: Renard Burgos on 05-20-2024 Nucleated RBC/100 WBC (Bld) [Ratio] 0 % 0-5 [facility] Platelet countOrdered By: Garrick Bhatt on 05-20-2024 Platelets (Bld) [#/Vol] 239 10*3/uL Normal 150-450 [facility] Comment on above: Order Comment: 109-1 Performed By: #### L 100.0100 ####[facility] [address] [place], [address] White blood cell (WBC) count Ordered By: Renard Burgos on 05-20-2024 WBC (Bld) [#/Vol] 9.8 10*3/uL Normal 4.4-11.0 [facility] Comment on above: Order Comment: 109-1 Performed By: #### L 100.0100 ####[facility] [address] [place], [address] Absolute lymphocyte countOrd ered By: Renard Burgos on 05-13-2024 Lymphocytes Auto (Unsp spec) [#/Vol] 2.10 10*3/uL 0.83-4.51 [facility] Absolute neutrophil countOrd ered By: Renard Burgos on 05-13-2024 Neutrophils (Bld) [#/Vol] 6.2 10*3/uL 2.0-7.7 [facility] Automated lymphocyte count a s percentage of total leukocytesOrdered By: Renard Burgos on 05-13-2024 Lymphocytes/100 WBC Auto (Unsp spec) 22.8 % 19-41 [facility] Basophil percentageOrdered B y: Renard Burgos on 05-13-2024 Basophils/100 WBC (Bld) 0.5 % 0-1 [facility] CBC W/Diff, Automatedon 05-01-2024 Absolute Lymph 2.10 X10 3/uL Normal 0.83-4.51 [facility] Comment on above: Order Comment: 109 Performed By: #### L 100.0100 ####[facility] [address] [place], [address] Absolute Neut 6.2 X10 3/uL Normal 2.0-7.7 [facility] Comment on above: Order Comment: 109 Performed By: #### L 100.0100 ####[facility] [address] [place], [address] Basophils/100 WBC (Bld) 0.5 % Normal 0-1 [facility] Comment on above: Order Comment: 109 Performed By: #### L 100.0100 ####[facility] [address] [place], [address] Eosinophils/100 WBC (Bld) 0.5 % Normal 0-5 [facility] Comment on above: Order Comment: 109 Performed By: #### L 100.0100 ####[facility] [address] [place], [address] Erythrocyte distribution width (RBC) [Ratio] 12.9 % Normal 11.6-14.6 [facility] Comment on above: Order Comment: 109 Performed By: #### L 100.0100 ####[facility] [address] [place], [address] Hematocrit (Bld) [Volume fraction] 42.5 % Normal 40-54 [facility] Comment on above: Order Comment: 109 Performed By: #### L 100.0100 ####[facility] [address] [place], [address] Hemoglobin (Bld) [Mass/Vol] 14.2 g/dL Normal 13.0-16.5 [facility] Comment on above: Order Comment: 109 Performed By: #### L 100.0100 ####[facility] [address] [place], [address] IG% 0.300 Normal 0.0-0.9 [facility] Comment on above: Order Comment: 109 Result Comment: IG% - Immature Granulocytes (promyelocytes, myelocytes andmetamyelocytes) > 1% indicates that a LEFT SHIFT is Present. Performed By: #### L 100.0100 ####[facility] [address] [place], [address] Lymphocytes/100 WBC (Bld) 22.8 % Normal 19-41 [facility] Comment on above: Order Comment: 109 Performed By: #### L 100.0100 ####[facility] [address] [place], [address] MCH (RBC) [Entitic mass] 30.3 pg Normal 27.0-32.0 [facility] Comment on above: Order Comment: 109 Performed By: #### L 100.0100 ####[facility] [address] [place], [address] MCHC (RBC) [Mass/Vol] 33.4 g/dL Normal 32-36 [facility] Comment on above: Order Comment: 109 Performed By: #### L 100.0100 ####[facility] [address] [place], [address] MCV (RBC) [Entitic vol] 90.6 fL Normal 80-94 [facility] Comment on above: Order Comment: 109 Performed By: #### L 100.0100 ####[facility] [address] [place], [address] Monocytes/100 WBC (Bld) 8.7 % Normal 0-10 [facility] Comment on above: Order Comment: 109 Performed By: #### L 100.0100 ####[facility] [address] [place], [address] Neutrophils/100 WBC (Bld) 67.2 % Normal 47-70 [facility] Comment on above: Order Comment: 109 Performed By: #### L 100.0100 ####[facility] [address] [place], [address] Nucleated RBC (Bld) [#/Vol] 0 10*3/uL Normal 0-5 [facility] Comment on above: Order Comment: 109 Performed By: #### L 100.0100 ####[facility] [address] [place], [address] Platelet mean volume (Bld) [Entitic vol] 11.1 fL Normal 6.2-12.0 [facility] Comment on above: Order Comment: 109 Performed By: #### L 100.0100 ####[facility] [address] [place], [address] Platelets (Bld) [#/Vol] 218 10*3/uL Normal 150-450 [facility] Comment on above: Order Comment: 109 Performed By: #### L 100.0100 ####[facility] [address] [place], [address] RBC (Bld) [#/Vol] 4.69 10*6/uL Normal 4.6-6.2 [facility] Comment on above: Order Comment: 109 Performed By: #### L 100.0100 ####[facility] [address] [place], [address] RDW SD 42.3 fl Normal 35.1-43.9 [facility] Comment on above: Order Comment: 109 Performed By: #### L 100.0100 ####[facility] [address] [place], [address] WBC (Bld) [#/Vol] 9.2 10*3/uL Normal 4.4-11.0 [facility] Comment on above: Order Comment: 109 Performed By: #### L 100.0100 ####[facility] [address] [place], [address] Eosinophil percentageOrdered By: Renard Burgos on 05-13-2024 Eosinophils/100 WBC (Bld) 0.5 % 0-5 [facility] Erythrocyte distribution wid th ratioOrdered By: Renard Burgos on 05-13-2024 Erythrocyte distribution width (RBC) [Ratio] 12.9 % 11.6-14.6 [facility] Erythrocyte distribution wid th standard deviationOrdered By: Renard Burgos on 05-13-2024 Erythrocyte distribution width (RBC) [Entitic vol] 42.3 fL 35.1-43.9 [facility] Erythrocyte distribution width (RBC) [Ratio] 42.3 fl 35.1-43.9 [facility] Hematocrit Auto (Bld) [Volum e fraction]Ordered By: Renard Burgos on 05-13-2024 Hematocrit (Bld) [Volume fraction] 42.5 % 40-54 [facility] Hemoglobin measurementOrdere d By: Renard Burgos on 05-13-2024 Hemoglobin (Bld) [Mass/Vol] 14.2 g/dL 13.0-16.5 [facility] Immature granulocytes/100 WB C Auto (Bld)Ordered By: Renard Burgos on 05-13-2024 Immature granulocytes/100 WBC (Bld) 0.300 % 0.0-0.9 [facility] Comment on above: IG% - Immature Granu locytes (promyelocytes, myelocytes and metamyelocytes) > 1% indicates that a LEFT SHIFT is Present. Lymphocytes Auto (Unsp spec) [#/Vol]Ordered By: Renard Burgos on 05-13-2024 Lymphocytes (Bld) [#/Vol] 2.10 10*3/uL 0.83-4.51 [facility] Lymphocytes/100 WBC Auto (Un sp spec)Ordered By: Renard Burgos on 05-13-2024 Lymphocytes/100 WBC (Bld) 22.8 % 19-41 [facility] MCV (mean corpuscular volume ) determinationOrdered By: Renard Burgos on 05-13-2024 MCV (RBC) [Entitic vol] 90.6 fL 80-94 [facility] Mean corpuscular hemoglobin (MCH) determinationOrdered By: Renard Burgos on 05-13-2024 MCH (RBC) [Entitic mass] 30.3 pg 27.0-32.0 [facility] Mean corpuscular hemoglobin concentration (MCHC) determinationOrdered By: Renard Burgos on 05-13-2024 MCHC (RBC) [Mass/Vol] 33.4 g/dL 32-36 [facility] Mean platelet volume determi nationOrdered By: Renard Burgos on 05-13-2024 Platelet mean volume (Bld) [Entitic vol] 11.1 fL 6.2-12.0 [facility] Monocyte percentageOrdered B y: Renard Burgos on 05-13-2024 Monocytes/100 WBC (Bld) 8.7 % 0-10 [facility] Neutrophil percentageOrdered By: Renard Burgos on 05-13-2024 Neutrophils/100 WBC (Bld) 67.2 % 47-70 [facility] Nucleated red blood cell per centageOrdered By: Renard Burgos on 05-13-2024 Nucleated RBC/100 WBC (Bld) [Ratio] 0 % 0-5 [facility] Platelet countOrdered By: Garrick Bhatt on 05-13-2024 Platelets (Bld) [#/Vol] 218 10*3/uL 150-450 [facility] RBC Auto (Bld) [#/Vol]Ordere d By: Renard Burgos on 05-13-2024 RBC (Bld) [#/Vol] 4.69 10*6/uL 4.6-6.2 [facility] White blood cell (WBC) count Ordered By: Renard Burgos on 05-13-2024 WBC (Bld) [#/Vol] 9.2 10*3/uL 4.4-11.0 [facility] Absolute neutrophil countOrd ered By: Renard Burgos on 05-06-2024 Neutrophils (Bld) [#/Vol] 5.9 10*3/uL 2.0-7.7 [facility] Automated blood erythrocyte countOrdered By: Renard Burgos on 05-06-2024 RBC (Bld) [#/Vol] 4.85 10*6/uL Normal 4.6-6.2 [facility] Comment on above: Order Comment: 109-1 Performed By: #### L 100.0100 ####[facility] [address] [place], [place], [address] Automated blood hematocrit ( percentage)Ordered By: Renard Burgos on 05-06-2024 Hematocrit (Bld) [Volume fraction] 45.0 % Normal 40-54 [facility] Comment on above: Order Comment: 109-1 Performed By: #### L 100.0100 ####[facility] [address] [place], [place], [address] Automated lymphocyte count a s percentage of total leukocytesOrdered By: Renard Burgos on 05-06-2024 Lymphocytes/100 WBC (Bld) 24.4 % Normal 19-41 [facility] Comment on above: Order Comment: 109-1 Performed By: #### L 100.0100 ####[facility] [address] [place], [address] Basophil percentageOrdered B y: Renard Burgos on 05-06-2024 Basophils/100 WBC (Bld) 0.5 % Normal 0-1 [facility] Comment on above: Order Comment: 109-1 Performed By: #### L 100.0100 ####[facility] [address] [place], [place], [address] CBC W/Diff, Automatedon Absolute Lymph 2.22 X10 3/uL Normal 0.83-4.51 [facility] Comment on above: Order Comment: 109-1 Performed By: #### L 100.0100 ####[facility] [address] [place], [address] Absolute Neut 5.9 X10 3/uL Normal 2.0-7.7 [facility] Comment on above: Order Comment: 109-1 Performed By: #### L 100.0100 ####[facility] [address] [place], [address] IG% 0.500 Normal 0.0-0.9 [facility] Comment on above: Order Comment: 109-1 Result Comment: IG% - Immature Granulocytes (promyelocytes, myelocytes andmetamyelocytes) > 1% indicates that a LEFT SHIFT is Present. Performed By: #### L 100.0100 ####[facility] [address] [place], [address] Nucleated RBC (Bld) [#/Vol] 0 10*3/uL Normal 0-5 [facility] Comment on above: Order Comment: 109-1 Performed By: #### L 100.0100 ####[facility] [address] [place], [address] RDW SD 43.9 fl Normal 35.1-43.9 [facility] Comment on above: Order Comment: 109-1 Performed By: #### L 100.0100 ####[facility] [address] [place], [address] Eosinophil percentageOrdered By: Renard Burgos on 05-06-2024 Eosinophils/100 WBC (Bld) 0.4 % Normal 0-5 [facility] Comment on above: Order Comment: 109-1 Performed By: #### L 100.0100 ####[facility] [address] [place], [address] Erythrocyte distribution wid th ratioOrdered By: Renard Burgos on 05-06-2024 Erythrocyte distribution width (RBC) [Ratio] 13.0 % Normal 11.6-14.6 [facility] Comment on above: Order Comment: 109-1 Performed By: #### L 100.0100 ####[facility] [address] [place], [place], [id number] Erythrocyte distribution wid th standard deviationOrdered By: Renard Burgos on 05-06-2024 Erythrocyte distribution width (RBC) [Entitic vol] 43.9 fL 35.1-43.9 [facility] Hemoglobin measurementOrdere d By: Renard Burgos on 05-06-2024 Hemoglobin (Bld) [Mass/Vol] 14.5 g/dL Normal 13.0-16.5 [facility] Comment on above: Order Comment: 109- Performed By: #### L 100.0100 ####[facility] [address] [place], [place], [address] Immature granulocytes/100 WB C Auto (Bld)Ordered By: Renard Burgos on 05-06-2024 Immature granulocytes/100 WBC (Bld) 0.500 % 0.0-0.9 [facility] Comment on above: IG% - Immature Granu locytes (promyelocytes, myelocytes and metamyelocytes) > 1% indicates that a LEFT SHIFT is Present. Lymphocytes Auto (Unsp spec) [#/Vol]Ordered By: Renard Burgos on 05-06-2024 Lymphocytes (Bld) [#/Vol] 2.22 10*3/uL 0.83-4.51 [facility] MCV (mean corpuscular volume ) determinationOrdered By: Renard Burgos on 05-06-2024 MCV (RBC) [Entitic vol] 92.8 fL Normal 80-94 [facility] Comment on above: Order Comment: 109- Performed By: #### L 100.0100 ####[facility] [address] [place], [place], [id number] Mean corpuscular hemoglobin (MCH) determinationOrdered By: Renard Burgos on 05-06-2024 MCH (RBC) [Entitic mass] 29.9 pg Normal 27.0-32.0 [facility] Comment on above: Order Comment: 109-1 Performed By: #### L 100.0100 ####[facility] [address] [place], [place], [id number] Mean corpuscular hemoglobin concentration (MCHC) determinationOrdered By: Renard Burgos on 05-06-2024 MCHC (RBC) [Mass/Vol] 32.2 g/dL Normal 32-36 [facility] Comment on above: Order Comment: 109-1 Performed By: #### L 100.0100 ####[facility] [address] [place], [place], [address] Mean platelet volume determi nationOrdered By: Renard Burgos on 05-06-2024 Platelet mean volume (Bld) [Entitic vol] 11.4 fL Normal 6.2-12.0 [facility] Comment on above: Order Comment: 109-1 Performed By: #### L 100.0100 ####[facility] [address] [place], [address] Monocyte percentageOrdered B y: Renard Burgos on 05-06-2024 Monocytes/100 WBC (Bld) 9.7 % Normal 0-10 [facility] Comment on above: Order Comment: 109-1 Performed By: #### L 100.0100 ####[facility] [address] [place], [address] Neutrophil percentageOrdered By: Renard Burgos on 05-06-2024 Neutrophils/100 WBC (Bld) 64.5 % Normal 47-70 [facility] Comment on above: Order Comment: 109-1 Performed By: #### L 100.0100 ####[facility] [address] [place], [address] Nucleated red blood cell per centageOrdered By: Renard Burgos on 05-06-2024 Nucleated RBC/100 WBC (Bld) [Ratio] 0 % 0-5 [facility] Platelet countOrdered By: Garrick Bhatt on 05-06-2024 Platelets (Bld) [#/Vol] 201 10*3/uL Normal 150-450 [facility] Comment on above: Order Comment: 109-1 Performed By: #### L 100.0100 ####[facility] [address] [place], [place], [address] White blood cell (WBC) count Ordered By: Renard Burgos on 05-06-2024 WBC (Bld) [#/Vol] 9.1 10*3/uL Normal 4.4-11.0 [facility] Comment on above: Order Comment: 109-1 Performed By: #### L 100.0100 ####[facility] [address] [place], [place], [address] 36on 05-03-2024 36 Gissel is calling to let Dr. Burgos know that the medication he prescribed he not certified, she is going to fax the information to the office. [phone] Normal [facility] Absolute neutrophil countOrd ered By: Renard Burgos on 04-29-2024 Neutrophils (Bld) [#/Vol] 6.3 10*3/uL 2.0-7.7 [facility] Basophil percentageOrdered B y: Renard Burgos on 04-29-2024 Basophils/100 WBC (Bld) 0.4 % 0-1 [facility] CBC W/Diff, Automatedon 04-02 Absolute Lymph 2.11 X10 3/uL Normal 0.83-4.51 [facility] Comment on above: Order Comment: 109.1 Performed By: #### L 100.0100 ####[facility] [address] [place], [address] Absolute Neut 6.3 X10 3/uL Normal 2.0-7.7 [facility] Comment on above: Order Comment: 109.1 Performed By: #### L 100.0100 ####[facility] [address] [place], [address] Basophils/100 WBC (Bld) 0.4 % Normal 0-1 [facility] Comment on above: Order Comment: 109.1 Performed By: #### L 100.0100 ####[facility] [address] [place], [address] Eosinophils/100 WBC (Bld) 0.4 % Normal 0-5 [facility] Comment on above: Order Comment: 109.1 Performed By: #### L 100.0100 ####[facility] [address] [place], [address] Erythrocyte distribution width (RBC) [Ratio] 12.6 % Normal 11.6-14.6 [facility] Comment on above: Order Comment: 109.1 Performed By: #### L 100.0100 ####[facility] [address] [place], [address] Hematocrit (Bld) [Volume fraction] 41.6 % Normal 40-54 [facility] Comment on above: Order Comment: 109.1 Performed By: #### L 100.0100 ####[facility] [address] [place], [address] Hemoglobin (Bld) [Mass/Vol] 13.7 g/dL Normal 13.0-16.5 [facility] Comment on above: Order Comment: 109.1 Performed By: #### L 100.0100 ####[facility] [address] [place], [address] IG% 0.400 Normal 0.0-0.9 [facility] Comment on above: Order Comment: 109.1 Result Comment: IG% - Immature Granulocytes (promyelocytes, myelocytes andmetamyelocytes) > 1% indicates that a LEFT SHIFT is Present. Performed By: #### L 100.0100 ####[facility] [address] [place], [address] Lymphocytes/100 WBC (Bld) 22.6 % Normal 19-41 [facility] Comment on above: Order Comment: 109.1 Performed By: #### L 100.0100 ####[facility] [address] [place], [address] MCH (RBC) [Entitic mass] 30.1 pg Normal 27.0-32.0 [facility] Comment on above: Order Comment: 109.1 Performed By: #### L 100.0100 ####[facility] [address] [place], [address] MCHC (RBC) [Mass/Vol] 32.9 g/dL Normal 32-36 [facility] Comment on above: Order Comment: 109.1 Performed By: #### L 100.0100 ####[facility] [address] [place], [address] MCV (RBC) [Entitic vol] 91.4 fL Normal 80-94 [facility] Comment on above: Order Comment: 109.1 Performed By: #### L 100.0100 ####[facility] [address] [place], [address] Monocytes/100 WBC (Bld) 9.3 % Normal 0-10 [facility] Comment on above: Order Comment: 109.1 Performed By: #### L 100.0100 ####[facility] [address] [place], [address] Neutrophils/100 WBC (Bld) 66.9 % Normal 47-70 [facility] Comment on above: Order Comment: 109.1 Performed By: #### L 100.0100 ####[facility] [address] [place], [address] Nucleated RBC (Bld) [#/Vol] 0 10*3/uL Normal 0-5 [facility] Comment on above: Order Comment: 109.1 Performed By: #### L 100.0100 ####[facility] [address] [place], [address] Platelet mean volume (Bld) [Entitic vol] 11.0 fL Normal 6.2-12.0 [facility] Comment on above: Order Comment: 109.1 Performed By: #### L 100.0100 ####[facility] [address] [place], [address] Platelets (Bld) [#/Vol] 211 10*3/uL Normal 150-450 [facility] Comment on above: Order Comment: 109.1 Performed By: #### L 100.0100 ####[facility] [address] [place], [address] RBC (Bld) [#/Vol] 4.55 10*6/uL Low 4.6-6.2 [facility] Comment on above: Order Comment: 109.1 Performed By: #### L 100.0100 ####[facility] [address] [place], [address] RDW SD 41.5 fl Normal 35.1-43.9 [facility] Comment on above: Order Comment: 109.1 Performed By: #### L 100.0100 ####[facility] [address] [place], [address] WBC (Bld) [#/Vol] 9.4 10*3/uL Normal 4.4-11.0 [facility] Comment on above: Order Comment: 109.1 Performed By: #### L 100.0100 ####[facility] [address] [place], [address] Eosinophil percentageOrdered By: Renard Burgos on 04-29-2024 Eosinophils/100 WBC (Bld) 0.4 % 0-5 [facility] Erythrocyte distribution wid th ratioOrdered By: Renard Burgos on 04-29-2024 Erythrocyte distribution width (RBC) [Ratio] 12.6 % 11.6-14.6 [facility] Erythrocyte distribution wid th standard deviationOrdered By: Renard Burgos on 04-29-2024 Erythrocyte distribution width (RBC) [Entitic vol] 41.5 fL 35.1-43.9 [facility] Hematocrit Auto (Bld) [Volum e fraction]Ordered By: Renard Burgos on 04-29-2024 Hematocrit (Bld) [Volume fraction] 41.6 % 40-54 [facility] Hemoglobin measurementOrdere d By: Renard Burgos on 04-29-2024 Hemoglobin (Bld) [Mass/Vol] 13.7 g/dL 13.0-16.5 [facility] Immature granulocytes/100 WB C Auto (Bld)Ordered By: Renard Burgos on 04-29-2024 Immature granulocytes/100 WBC (Bld) 0.400 % 0.0-0.9 [facility] Comment on above: IG% - Immature Granu locytes (promyelocytes, myelocytes and metamyelocytes) > 1% indicates that a LEFT SHIFT is Present. Lymphocytes Auto (Unsp spec) [#/Vol]Ordered By: Renard Burgos on 04-29-2024 Lymphocytes (Bld) [#/Vol] 2.11 10*3/uL 0.83-4.51 [facility] Lymphocytes/100 WBC Auto (Un sp spec)Ordered By: Renard Burgos on 04-29-2024 Lymphocytes/100 WBC (Bld) 22.6 % 19-41 [facility] MCV (mean corpuscular volume ) determinationOrdered By: Renard Burgos on 04-29-2024 MCV (RBC) [Entitic vol] 91.4 fL 80-94 [facility] Mean corpuscular hemoglobin (MCH) determinationOrdered By: Renard Burgos on 04-29-2024 MCH (RBC) [Entitic mass] 30.1 pg 27.0-32.0 [facility] Mean corpuscular hemoglobin concentration (MCHC) determinationOrdered By: Renard Burgos on 04-29-2024 MCHC (RBC) [Mass/Vol] 32.9 g/dL 32-36 [facility] Mean platelet volume determi nationOrdered By: Renard Burgos on 04-29-2024 Platelet mean volume (Bld) [Entitic vol] 11.0 fL 6.2-12.0 [facility] Monocyte percentageOrdered B y: Renard Burgos on 04-29-2024 Monocytes/100 WBC (Bld) 9.3 % 0-10 [facility] Neutrophil percentageOrdered By: Renard Burgos on 04-29-2024 Neutrophils/100 WBC (Bld) 66.9 % 47-70 [facility] Nucleated red blood cell per centageOrdered By: Renard Burgos on 04-29-2024 Nucleated RBC/100 WBC (Bld) [Ratio] 0 % 0-5 [facility] Platelet countOrdered By: Garrick Bhatt on 04-29-2024 Platelets (Bld) [#/Vol] 211 10*3/uL 150-450 [facility] RBC Auto (Bld) [#/Vol]Ordere d By: Renard Burgos on 04-29-2024 RBC (Bld) [#/Vol] 4.55 10*6/uL Low 4.6-6.2 [facility] White blood cell (WBC) count Ordered By: Renard Burgos on 04-29-2024 WBC (Bld) [#/Vol] 9.4 10*3/uL 4.4-11.0 [facility] Absolute neutrophil countOrd ered By: Renard Burgos on 04-22-2024 Neutrophils (Bld) [#/Vol] 8.1 10*3/uL High 2.0-7.7 [facility] Basophil percentageOrdered B y: Renard Burgos on 04-22-2024 Basophils/100 WBC (Bld) 0.5 % 0-1 [facility] CBC W/Diff, Automatedon 04-01 Absolute Lymph 2.61 X10 3/uL Normal 0.83-4.51 [facility] Comment on above: Order Comment: 109-1 Performed By: #### L 100.0100 ####[facility] [address] [place], [place], [address] Absolute Neut 8.1 X10 3/uL High 2.0-7.7 [facility] Comment on above: Order Comment: 109-1 Performed By: #### L 100.0100 ####[facility] [address] [place], [address] Basophils/100 WBC (Bld) 0.5 % Normal 0-1 [facility] Comment on above: Order Comment: 109-1 Performed By: #### L 100.0100 ####[facility] [address] [place], [address] Eosinophils/100 WBC (Bld) 0.4 % Normal 0-5 [facility] Comment on above: Order Comment: 109-1 Performed By: #### L 100.0100 ####[facility] [address] [place], [address] Erythrocyte distribution width (RBC) [Ratio] 12.6 % Normal 11.6-14.6 [facility] Comment on above: Order Comment: 109-1 Performed By: #### L 100.0100 ####[facility] [address] [place], [address] Hematocrit (Bld) [Volume fraction] 44.5 % Normal 40-54 [facility] Comment on above: Order Comment: 109-1 Performed By: #### L 100.0100 ####[facility] [address] [place], [address] Hemoglobin (Bld) [Mass/Vol] 14.3 g/dL Normal 13.0-16.5 [facility] Comment on above: Order Comment: 109-1 Performed By: #### L 100.0100 ####[facility] [address] [place], [address] IG% 0.300 Normal 0.0-0.9 [facility] Comment on above: Order Comment: 109-1 Result Comment: IG% - Immature Granulocytes (promyelocytes, myelocytes andmetamyelocytes) > 1% indicates that a LEFT SHIFT is Present. Performed By: #### L 100.0100 ####[facility] [address] [place], [address] Lymphocytes/100 WBC (Bld) 22.0 % Normal 19-41 [facility] Comment on above: Order Comment: 109-1 Performed By: #### L 100.0100 ####[facility] [address] [place], [address] MCH (RBC) [Entitic mass] 29.7 pg Normal 27.0-32.0 [facility] Comment on above: Order Comment: 109-1 Performed By: #### L 100.0100 ####[facility] [address] [place], [address] MCHC (RBC) [Mass/Vol] 32.1 g/dL Normal 32-36 [facility] Comment on above: Order Comment: 109-1 Performed By: #### L 100.0100 ####[facility] [address] [place], [address] MCV (RBC) [Entitic vol] 92.5 fL Normal 80-94 [facility] Comment on above: Order Comment: 109-1 Performed By: #### L 100.0100 ####[facility] [address] [place], [address] Monocytes/100 WBC (Bld) 8.3 % Normal 0-10 [facility] Comment on above: Order Comment: 109-1 Performed By: #### L 100.0100 ####[facility] [address] [place], [address] Neutrophils/100 WBC (Bld) 68.5 % Normal 47-70 [facility] Comment on above: Order Comment: 109-1 Performed By: #### L 100.0100 ####[facility] [address] [place], [address] Nucleated RBC (Bld) [#/Vol] 0 10*3/uL Normal 0-5 [facility] Comment on above: Order Comment: 109-1 Performed By: #### L 100.0100 ####[facility] [address] [place], [address] Platelet mean volume (Bld) [Entitic vol] 11.0 fL Normal 6.2-12.0 [facility] Comment on above: Order Comment: 109-1 Performed By: #### L 100.0100 ####[facility] [address] [place], [address] Platelets (Bld) [#/Vol] 190 10*3/uL Normal 150-450 [facility] Comment on above: Order Comment: 109-1 Performed By: #### L 100.0100 ####[facility] [address] [place], [address] RBC (Bld) [#/Vol] 4.81 10*6/uL Normal 4.6-6.2 [facility] Comment on above: Order Comment: 109-1 Performed By: #### L 100.0100 ####[facility] [address] [place], [address] RDW SD 43.0 fl Normal 35.1-43.9 [facility] Comment on above: Order Comment: 109-1 Performed By: #### L 100.0100 ####[facility] [address] [place], [address] WBC (Bld) [#/Vol] 11.9 10*3/uL High 4.4-11.0 [facility] Comment on above: Order Comment: 109-1 Performed By: #### L 100.0100 ####[facility] [address] [place], [address] Eosinophil percentageOrdered By: Renard Burgos on 04-22-2024 Eosinophils/100 WBC (Bld) 0.4 % 0-5 [facility] Erythrocyte distribution wid th ratioOrdered By: Renard Burgos on 04-22-2024 Erythrocyte distribution width (RBC) [Ratio] 12.6 % 11.6-14.6 [facility] Erythrocyte distribution wid th standard deviationOrdered By: Renard Burgos on 04-22-2024 Erythrocyte distribution width (RBC) [Entitic vol] 43.0 fL 35.1-43.9 [facility] Hematocrit Auto (Bld) [Volum e fraction]Ordered By: Renard Burgos on 04-22-2024 Hematocrit (Bld) [Volume fraction] 44.5 % 40-54 [facility] Hemoglobin measurementOrdere d By: Renard Burgos on 04-22-2024 Hemoglobin (Bld) [Mass/Vol] 14.3 g/dL 13.0-16.5 [facility] Immature granulocytes/100 WB C Auto (Bld)Ordered By: Renard Burgos on 04-22-2024 Immature granulocytes/100 WBC (Bld) 0.300 % 0.0-0.9 [facility] Comment on above: IG% - Immature Granu locytes (promyelocytes, myelocytes and metamyelocytes) > 1% indicates that a LEFT SHIFT is Present. Lymphocytes Auto (Unsp spec) [#/Vol]Ordered By: Renard Burgos on 04-22-2024 Lymphocytes (Bld) [#/Vol] 2.61 10*3/uL 0.83-4.51 [facility] Lymphocytes/100 WBC Auto (Un sp spec)Ordered By: Renard Burgos on 04-22-2024 Lymphocytes/100 WBC (Bld) 22.0 % 19-41 [facility] MCV (mean corpuscular volume ) determinationOrdered By: Renard Burgos on 04-22-2024 MCV (RBC) [Entitic vol] 92.5 fL 80-94 [facility] Mean corpuscular hemoglobin (MCH) determinationOrdered By: Renard Burgos on 04-22-2024 MCH (RBC) [Entitic mass] 29.7 pg 27.0-32.0 [facility] Mean corpuscular hemoglobin concentration (MCHC) determinationOrdered By: Renard Burgos on 04-22-2024 MCHC (RBC) [Mass/Vol] 32.1 g/dL 32-36 [facility] Mean platelet volume determi nationOrdered By: Renard Burgos on 04-22-2024 Platelet mean volume (Bld) [Entitic vol] 11.0 fL 6.2-12.0 [facility] Monocyte percentageOrdered B y: Renard Burgos on 04-22-2024 Monocytes/100 WBC (Bld) 8.3 % 0-10 [facility] Neutrophil percentageOrdered By: Renard Burgos on 04-22-2024 Neutrophils/100 WBC (Bld) 68.5 % 47-70 [facility] Nucleated red blood cell per centageOrdered By: Renard Burgos on 04-22-2024 Nucleated RBC/100 WBC (Bld) [Ratio] 0 % 0-5 [facility] Platelet countOrdered By: Garrick Bhatt on 04-22-2024 Platelets (Bld) [#/Vol] 190 10*3/uL 150-450 [facility] RBC Auto (Bld) [#/Vol]Ordere d By: Renard Burgos on 04-22-2024 RBC (Bld) [#/Vol] 4.81 10*6/uL 4.6-6.2 [facility] White blood cell (WBC) count Ordered By: Renard Burgos on 04-22-2024 WBC (Bld) [#/Vol] 11.9 10*3/uL High 4.4-11.0 [facility] Absolute neutrophil countOrd ered By: Renard Burgos on 04-15-2024 Neutrophils (Bld) [#/Vol] 8.7 10*3/uL High 2.0-7.7 [facility] Basophil percentageOrdered B y: Renard Burgos on 04-15-2024 Basophils/100 WBC (Bld) 0.3 % 0-1 [facility] Bilirubin, totalOrdered By: Renard Burgos on 04-15-2024 Bilirubin [Mass/Vol] 0.30 mg/dL 0.20-1.00 [facility] Comment on above: For patients on eltr ombopag therapy, use of Dimension [place] TBIL is not recommended. Bilirubin.direct [Mass/Vol]O rdered By: Renard Burgos on 04-15-2024 Direct Bilirubin < 0.05 mg/dL 0.00-0.30 [facility] CBC W/Diff, Automatedon 12- Absolute Lymph 1.93 X10 3/uL Normal 0.83-4.51 [facility] Comment on above: Order Comment: 109-1 Performed By: #### L 100.0100, L500.3400 ####[facility] [address] [place], [address] Absolute Neut 8.7 X10 3/uL High 2.0-7.7 [facility] Comment on above: Order Comment: 109-1 Performed By: #### L 100.0100, L500.3400 ####[facility] [address] [place], [address] Basophils/100 WBC (Bld) 0.3 % Normal 0-1 [facility] Comment on above: Order Comment: 109-1 Performed By: #### L 100.0100, L500.3400 ####[facility] [address] [place], [address] Eosinophils/100 WBC (Bld) 0.4 % Normal 0-5 [facility] Comment on above: Order Comment: 109-1 Performed By: #### L 100.0100, L500.3400 ####[facility] [address] [place], [address] Erythrocyte distribution width (RBC) [Ratio] 12.8 % Normal 11.6-14.6 [facility] Comment on above: Order Comment: 109-1 Performed By: #### L 100.0100, L500.3400 ####[facility] [address] [place], [address] Hematocrit (Bld) [Volume fraction] 42.5 % Normal 40-54 [facility] Comment on above: Order Comment: 109-1 Performed By: #### L 100.0100, L500.3400 ####[facility] [address] [place], [address] Hemoglobin (Bld) [Mass/Vol] 13.7 g/dL Normal 13.0-16.5 [facility] Comment on above: Order Comment: 109-1 Performed By: #### L 100.0100, L500.3400 ####[facility] [address] [place], [address] IG% 0.400 Normal 0.0-0.9 [facility] Comment on above: Order Comment: 109-1 Result Comment: IG% - Immature Granulocytes (promyelocytes, myelocytes andmetamyelocytes) > 1% indicates that a LEFT SHIFT is Present. Performed By: #### L 100.0100, L500.3400 ####[facility] [address] [place], [address] Lymphocytes/100 WBC (Bld) 16.9 % Low 19-41 [facility] Comment on above: Order Comment: 109-1 Performed By: #### L 100.0100, L500.3400 ####[facility] [address] [place], [address] MCH (RBC) [Entitic mass] 29.5 pg Normal 27.0-32.0 [facility] Comment on above: Order Comment: 109-1 Performed By: #### L 100.0100, L500.3400 ####[facility] [address] [place], [address] MCHC (RBC) [Mass/Vol] 32.2 g/dL Normal 32-36 [facility] Comment on above: Order Comment: 109-1 Performed By: #### L 100.0100, L500.3400 ####[facility] [address] [place], [address] MCV (RBC) [Entitic vol] 91.6 fL Normal 80-94 [facility] Comment on above: Order Comment: 109-1 Performed By: #### L 100.0100, L500.3400 ####[facility] [address] [place], [address] Monocytes/100 WBC (Bld) 6.0 % Normal 0-10 [facility] Comment on above: Order Comment: 109-1 Performed By: #### L 100.0100, L500.3400 ####[facility] [address] [place], [address] Neutrophils/100 WBC (Bld) 76.0 % High 47-70 [facility] Comment on above: Order Comment: 109-1 Performed By: #### L 100.0100, L500.3400 ####[facility] [address] [place], [address] Nucleated RBC (Bld) [#/Vol] 0 10*3/uL Normal 0-5 [facility] Comment on above: Order Comment: 109-1 Performed By: #### L 100.0100, L500.3400 ####[facility] [address] [place], [address] Platelet mean volume (Bld) [Entitic vol] 11.1 fL Normal 6.2-12.0 [facility] Comment on above: Order Comment: 109-1 Performed By: #### L 100.0100, L500.3400 ####[facility] [address] [place], [address] Platelets (Bld) [#/Vol] 197 10*3/uL Normal 150-450 [facility] Comment on above: Order Comment: 109-1 Performed By: #### L 100.0100, L500.3400 ####[facility] [address] [place], [address] RBC (Bld) [#/Vol] 4.64 10*6/uL Normal 4.6-6.2 [facility] Comment on above: Order Comment: 109-1 Performed By: #### L 100.0100, L500.3400 ####[facility] [address] [place], [address] RDW SD 42.5 fl Normal 35.1-43.9 [facility] Comment on above: Order Comment: 109-1 Performed By: #### L 100.0100, L500.3400 ####[facility] [address] [place], [address] WBC (Bld) [#/Vol] 11.4 10*3/uL High 4.4-11.0 [facility] Comment on above: Order Comment: 109-1 Performed By: #### L 100.0100, L500.3400 ####[facility] [address] [place], [address] Eosinophil percentageOrdered By: Renard Burgos on 04-15-2024 Eosinophils/100 WBC (Bld) 0.4 % 0-5 [facility] Erythrocyte distribution wid th ratioOrdered By: Renard Burgos on 04-15-2024 Erythrocyte distribution width (RBC) [Ratio] 12.8 % 11.6-14.6 [facility] Erythrocyte distribution wid th standard deviationOrdered By: Renard Burgos on 04-15-2024 Erythrocyte distribution width (RBC) [Entitic vol] 42.5 fL 35.1-43.9 [facility] Hematocrit Auto (Bld) [Volum e fraction]Ordered By: Renard Burgos on 04-15-2024 Hematocrit (Bld) [Volume fraction] 42.5 % 40-54 [facility] Hemoglobin measurementOrdere d By: Renard Burgos on 04-15-2024 Hemoglobin (Bld) [Mass/Vol] 13.7 g/dL 13.0-16.5 [facility] Immature granulocytes/100 WB C Auto (Bld)Ordered By: Renard Burgos on 04-15-2024 Immature granulocytes/100 WBC (Bld) 0.400 % 0.0-0.9 [facility] Comment on above: IG% - Immature Granu locytes (promyelocytes, myelocytes and metamyelocytes) > 1% indicates that a LEFT SHIFT is Present. Laboratory - Chemistry and C hemistry - challengeOrdered By: Renard Burgos on 04-15-2024 AST [Catalytic activity/Vol] 18 U/L 15-37 [facility] Comment on above: Slight Hemolysis, Re sult may be falsely increased. Liver Profileon 04-15-2024 Albumin [Mass/Vol] 2.9 g/dL Low 3.2-5.0 [facility] Comment on above: Order Comment: 109-1 Performed By: #### L 100.0100, L500.3400 ####[facility] [address] [place], [address] ALK P 126 U/L High 45-117 [facility] Comment on above: Order Comment: 109-1 Performed By: #### L 100.0100, L500.3400 ####[facility] [address] [place], [address] ALT [Catalytic activity/Vol] 21 U/L Normal 16-61 [facility] Comment on above: Order Comment: 109-1 Performed By: #### L 100.0100, L500.3400 ####[facility] [address] [place], [address] AST [Catalytic activity/Vol] 18 U/L Normal 15-37 [facility] Comment on above: Order Comment: 109-1 Result Comment: Slig ht Hemolysis, Result may be falsely increased. Performed By: #### L 100.0100, L500.3400 ####[facility] [address] [place], [address] Bilirubin [Mass/Vol] 0.30 mg/dL Normal 0.20-1.00 [facility] Comment on above: Order Comment: 109-1 Result Comment: For patients on eltrombopag therapy, use of Dimension [place] TBIL is not recommended. Performed By: #### L 100.0100, L500.3400 ####[facility] [address] [place], [address] D BILI < 0.05 Normal 0.00-0.30 [facility] Comment on above: Order Comment: 109-1 Performed By: #### L 100.0100, L500.3400 ####[facility] [address] [place], [address] Globulin (S) [Mass/Vol] 3.0 g/dL Normal 2.2-4.2 [facility] Comment on above: Order Comment: 109-1 Performed By: #### L 100.0100, L500.3400 ####[facility] [address] [place], [address] T PROT 5.9 g/dL Low 6.4-8.2 [facility] Comment on above: Order Comment: 109-1 Performed By: #### L 100.0100, L500.3400 ####[facility] [address] [place], [address] Lymphocytes Auto (Unsp spec) [#/Vol]Ordered By: Renard Burgos on 04-15-2024 Lymphocytes (Bld) [#/Vol] 1.93 10*3/uL 0.83-4.51 [facility] Lymphocytes/100 WBC Auto (Un sp spec)Ordered By: Renard Burgos on 04-15-2024 Lymphocytes/100 WBC (Bld) 16.9 % Low 19-41 [facility] MCV (mean corpuscular volume ) determinationOrdered By: Renard Burgos on 04-15-2024 MCV (RBC) [Entitic vol] 91.6 fL 80-94 [facility] Mean corpuscular hemoglobin (MCH) determinationOrdered By: Renard Burgos on 04-15-2024 MCH (RBC) [Entitic mass] 29.5 pg 27.0-32.0 [facility] Mean corpuscular hemoglobin concentration (MCHC) determinationOrdered By: Renard Burgos on 04-15-2024 MCHC (RBC) [Mass/Vol] 32.2 g/dL 32-36 [facility] Mean platelet volume determi nationOrdered By: Renard Burgos on 04-15-2024 Platelet mean volume (Bld) [Entitic vol] 11.1 fL 6.2-12.0 [facility] Monocyte percentageOrdered B y: Renard Burgos on 04-15-2024 Monocytes/100 WBC (Bld) 6.0 % 0-10 [facility] Neutrophil percentageOrdered By: Renard Burgos on 04-15-2024 Neutrophils/100 WBC (Bld) 76.0 % High 47-70 [facility] Nucleated red blood cell per centageOrdered By: Renard Burgos on 04-15-2024 Nucleated RBC/100 WBC (Bld) [Ratio] 0 % 0-5 [facility] Platelet countOrdered By: Garrick Bhatt on 04-15-2024 Platelets (Bld) [#/Vol] 197 10*3/uL 150-450 [facility] RBC Auto (Bld) [#/Vol]Ordere d By: Renard Burgos on 04-15-2024 RBC (Bld) [#/Vol] 4.64 10*6/uL 4.6-6.2 [facility] Serum globulin measurementOr dered By: Renard Burgos on 04-15-2024 Globulin (S) [Mass/Vol] 3.0 g/dL 2.2-4.2 [facility] Serum or plasma alanine kay otransferase (ALT) measurementOrdered By: Renard Burgos on 04-15-2024 ALT [Catalytic activity/Vol] 21 U/L 16-61 [facility] Serum or plasma albumin gordy urement (mass/volume)Ordered By: Renard Burgos on 04-15-2024 Albumin [Mass/Vol] 2.9 g/dL Low 3.2-5.0 [facility] Serum or plasma alkaline trace sphatase measurementOrdered By: Renard Burgos on 04-15-2024 ALP [Catalytic activity/Vol] 126 U/L High 45-117 [facility] Total proteinOrdered By: Lyubov Burgos on 04-15-2024 Protein [Mass/Vol] 5.9 g/dL Low 6.4-8.2 [facility] White blood cell (WBC) count Ordered By: Renard Burgos on 04-15-2024 WBC (Bld) [#/Vol] 11.4 10*3/uL High 4.4-11.0 [facility] Absolute neutrophil countOrd ered By: Renard Burgos on 04-08-2024 Neutrophils (Bld) [#/Vol] 5.7 10*3/uL 2.0-7.7 [facility] Basophil percentageOrdered B y: Renard Amezquitahola on 04-08-2024 Basophils/100 WBC (Bld) 0.6 % 0-1 [facility] CBC W/Diff, Automatedon Absolute Lymph 2.27 X10 3/uL Normal 0.83-4.51 [facility] Comment on above: Order Comment: 109.1 Performed By: #### L 100.0100 ####[facility] [address] [place], [address] Absolute Neut 5.7 X10 3/uL Normal 2.0-7.7 [facility] Comment on above: Order Comment: 109.1 Performed By: #### L 100.0100 ####[facility] [address] [place], [address] Basophils/100 WBC (Bld) 0.6 % Normal 0-1 [facility] Comment on above: Order Comment: 109.1 Performed By: #### L 100.0100 ####[facility] [address] [place], [address] Eosinophils/100 WBC (Bld) 0.5 % Normal 0-5 [facility] Comment on above: Order Comment: 109.1 Performed By: #### L 100.0100 ####[facility] [address] [place], [address] Erythrocyte distribution width (RBC) [Ratio] 12.6 % Normal 11.6-14.6 [facility] Comment on above: Order Comment: 109.1 Performed By: #### L 100.0100 ####[facility] [address] [place], [address] Hematocrit (Bld) [Volume fraction] 41.2 % Normal 40-54 [facility] Comment on above: Order Comment: 109.1 Performed By: #### L 100.0100 ####[facility] [address] [place], [address] Hemoglobin (Bld) [Mass/Vol] 13.3 g/dL Normal 13.0-16.5 [facility] Comment on above: Order Comment: 109.1 Performed By: #### L 100.0100 ####[facility] [address] [place], [address] IG% 0.200 Normal 0.0-0.9 [facility] Comment on above: Order Comment: 109.1 Result Comment: IG% - Immature Granulocytes (promyelocytes, myelocytes andmetamyelocytes) > 1% indicates that a LEFT SHIFT is Present. Performed By: #### L 100.0100 ####[facility] [address] [place], [address] Lymphocytes/100 WBC (Bld) 26.0 % Normal 19-41 [facility] Comment on above: Order Comment: 109.1 Performed By: #### L 100.0100 ####[facility] [address] [place], [address] MCH (RBC) [Entitic mass] 29.6 pg Normal 27.0-32.0 [facility] Comment on above: Order Comment: 109.1 Performed By: #### L 100.0100 ####[facility] [address] [place], [address] MCHC (RBC) [Mass/Vol] 32.3 g/dL Normal 32-36 [facility] Comment on above: Order Comment: 109.1 Performed By: #### L 100.0100 ####[facility] [address] [place], [address] MCV (RBC) [Entitic vol] 91.8 fL Normal 80-94 [facility] Comment on above: Order Comment: 109.1 Performed By: #### L 100.0100 ####[facility] [address] [place], [address] Monocytes/100 WBC (Bld) 7.8 % Normal 0-10 [facility] Comment on above: Order Comment: 109.1 Performed By: #### L 100.0100 ####[facility] [address] [place], [address] Neutrophils/100 WBC (Bld) 64.9 % Normal 47-70 [facility] Comment on above: Order Comment: 109.1 Performed By: #### L 100.0100 ####[facility] [address] [place], [address] Nucleated RBC (Bld) [#/Vol] 0 10*3/uL Normal 0-5 [facility] Comment on above: Order Comment: 109.1 Performed By: #### L 100.0100 ####[facility] [address] [place], [address] Platelet mean volume (Bld) [Entitic vol] 10.8 fL Normal 6.2-12.0 [facility] Comment on above: Order Comment: 109.1 Performed By: #### L 100.0100 ####[facility] [address] [place], [address] Platelets (Bld) [#/Vol] 208 10*3/uL Normal 150-450 [facility] Comment on above: Order Comment: 109.1 Performed By: #### L 100.0100 ####[facility] [address] [place], [address] RBC (Bld) [#/Vol] 4.49 10*6/uL Low 4.6-6.2 [facility] Comment on above: Order Comment: 109.1 Performed By: #### L 100.0100 ####[facility] [address] [place], [address] RDW SD 42.4 fl Normal 35.1-43.9 [facility] Comment on above: Order Comment: 109.1 Performed By: #### L 100.0100 ####[facility] [address] [place], [address] WBC (Bld) [#/Vol] 8.7 10*3/uL Normal 4.4-11.0 [facility] Comment on above: Order Comment: 109.1 Performed By: #### L 100.0100 ####[facility] [address] [place], [address] Eosinophil percentageOrdered By: Renard Burgos on 04-08-2024 Eosinophils/100 WBC (Bld) 0.5 % 0-5 [facility] Erythrocyte distribution wid th ratioOrdered By: Renard Burgos on 04-08-2024 Erythrocyte distribution width (RBC) [Ratio] 12.6 % 11.6-14.6 [facility] Erythrocyte distribution wid th standard deviationOrdered By: Renard Burgos on 04-08-2024 Erythrocyte distribution width (RBC) [Entitic vol] 42.4 fL 35.1-43.9 [facility] Hematocrit Auto (Bld) [Volum e fraction]Ordered By: Renard Burgos on 04-08-2024 Hematocrit (Bld) [Volume fraction] 41.2 % 40-54 [facility] Hemoglobin measurementOrdere d By: Renard Burgos on 04-08-2024 Hemoglobin (Bld) [Mass/Vol] 13.3 g/dL 13.0-16.5 [facility] Immature granulocytes/100 WB C Auto (Bld)Ordered By: Renard Burgos on 04-08-2024 Immature granulocytes/100 WBC (Bld) 0.200 % 0.0-0.9 [facility] Comment on above: IG% - Immature Granu locytes (promyelocytes, myelocytes and metamyelocytes) > 1% indicates that a LEFT SHIFT is Present. Lymphocytes Auto (Unsp spec) [#/Vol]Ordered By: Renard Burgos on 04-08-2024 Lymphocytes (Bld) [#/Vol] 2.27 10*3/uL 0.83-4.51 [facility] Lymphocytes/100 WBC Auto (Un sp spec)Ordered By: Renard Burgos on 04-08-2024 Lymphocytes/100 WBC (Bld) 26.0 % 19-41 [facility] MCV (mean corpuscular volume ) determinationOrdered By: Renard Burgos on 04-08-2024 MCV (RBC) [Entitic vol] 91.8 fL 80-94 [facility] Mean corpuscular hemoglobin (MCH) determinationOrdered By: Renard Burgos on 04-08-2024 MCH (RBC) [Entitic mass] 29.6 pg 27.0-32.0 [facility] Mean corpuscular hemoglobin concentration (MCHC) determinationOrdered By: Renard Burgos on 04-08-2024 MCHC (RBC) [Mass/Vol] 32.3 g/dL 32-36 [facility] Mean platelet volume determi nationOrdered By: Renard Burgos on 04-08-2024 Platelet mean volume (Bld) [Entitic vol] 10.8 fL 6.2-12.0 [facility] Monocyte percentageOrdered B y: Renard Burgos on 04-08-2024 Monocytes/100 WBC (Bld) 7.8 % 0-10 [facility] Neutrophil percentageOrdered By: Renard Burgos on 04-08-2024 Neutrophils/100 WBC (Bld) 64.9 % 47-70 [facility] Nucleated red blood cell per centageOrdered By: Renard Burgos on 04-08-2024 Nucleated RBC/100 WBC (Bld) [Ratio] 0 % 0-5 [facility] Platelet countOrdered By: Garrick Bhatt on 04-08-2024 Platelets (Bld) [#/Vol] 208 10*3/uL 150-450 [facility] RBC Auto (Bld) [#/Vol]Ordere d By: Renard Burgos on 04-08-2024 RBC (Bld) [#/Vol] 4.49 10*6/uL Low 4.6-6.2 [facility] White blood cell (WBC) count Ordered By: Renard Burgos on 04-08-2024 WBC (Bld) [#/Vol] 8.7 10*3/uL 4.4-11.0 [facility] Absolute neutrophil countOrd ered By: Renard Burgos on 04-01-2024 Neutrophils (Bld) [#/Vol] 7.1 10*3/uL 2.0-7.7 [facility] Basophil percentageOrdered B y: Renard Burgos on 04-01-2024 Basophils/100 WBC (Bld) 0.4 % 0-1 [facility] CBC W/Diff, Automatedon 12--2023 Absolute Lymph 1.97 X10 3/uL Normal 0.83-4.51 [facility] Comment on above: Order Comment: 109-1 Performed By: #### L 100.0100 ####[facility] [address] [place], [address] Absolute Neut 7.1 X10 3/uL Normal 2.0-7.7 [facility] Comment on above: Order Comment: 109-1 Performed By: #### L 100.0100 ####[facility] [address] [place], [address] Basophils/100 WBC (Bld) 0.4 % Normal 0-1 [facility] Comment on above: Order Comment: 109-1 Performed By: #### L 100.0100 ####[facility] [address] [place], [address] Eosinophils/100 WBC (Bld) 0.4 % Normal 0-5 [facility] Comment on above: Order Comment: 109-1 Performed By: #### L 100.0100 ####[facility] [address] [place], [address] Erythrocyte distribution width (RBC) [Ratio] 12.6 % Normal 11.6-14.6 [facility] Comment on above: Order Comment: 109-1 Performed By: #### L 100.0100 ####[facility] [address] [place], [address] Hematocrit (Bld) [Volume fraction] 41.7 % Normal 40-54 [facility] Comment on above: Order Comment: 109-1 Performed By: #### L 100.0100 ####[facility] [address] [place], [address] Hemoglobin (Bld) [Mass/Vol] 13.6 g/dL Normal 13.0-16.5 [facility] Comment on above: Order Comment: 109-1 Performed By: #### L 100.0100 ####[facility] [address] [place], [address] IG% 0.300 Normal 0.0-0.9 [facility] Comment on above: Order Comment: 109-1 Result Comment: IG% - Immature Granulocytes (promyelocytes, myelocytes andmetamyelocytes) > 1% indicates that a LEFT SHIFT is Present. Performed By: #### L 100.0100 ####[facility] [address] [place], [address] Lymphocytes/100 WBC (Bld) 20.0 % Normal 19-41 [facility] Comment on above: Order Comment: 109-1 Performed By: #### L 100.0100 ####[facility] [address] [place], [address] MCH (RBC) [Entitic mass] 29.7 pg Normal 27.0-32.0 [facility] Comment on above: Order Comment: 109-1 Performed By: #### L 100.0100 ####[facility] [address] [place], [address] MCHC (RBC) [Mass/Vol] 32.6 g/dL Normal 32-36 [facility] Comment on above: Order Comment: 109-1 Performed By: #### L 100.0100 ####[facility] [address] [place], [address] MCV (RBC) [Entitic vol] 91.0 fL Normal 80-94 [facility] Comment on above: Order Comment: 109-1 Performed By: #### L 100.0100 ####[facility] [address] [place], [address] Monocytes/100 WBC (Bld) 7.1 % Normal 0-10 [facility] Comment on above: Order Comment: 109-1 Performed By: #### L 100.0100 ####[facility] [address] [place], [address] Neutrophils/100 WBC (Bld) 71.8 % High 47-70 [facility] Comment on above: Order Comment: 109-1 Performed By: #### L 100.0100 ####[facility] [address] [place], [address] Nucleated RBC (Bld) [#/Vol] 0 10*3/uL Normal 0-5 [facility] Comment on above: Order Comment: 109-1 Performed By: #### L 100.0100 ####[facility] [address] [place], [address] Platelet mean volume (Bld) [Entitic vol] 11.3 fL Normal 6.2-12.0 [facility] Comment on above: Order Comment: 109-1 Performed By: #### L 100.0100 ####[facility] [address] [place], [address] Platelets (Bld) [#/Vol] 195 10*3/uL Normal 150-450 [facility] Comment on above: Order Comment: 109-1 Performed By: #### L 100.0100 ####[facility] [address] [place], [address] RBC (Bld) [#/Vol] 4.58 10*6/uL Low 4.6-6.2 [facility] Comment on above: Order Comment: 109-1 Performed By: #### L 100.0100 ####[facility] [address] [place], [address] RDW SD 41.2 fl Normal 35.1-43.9 [facility] Comment on above: Order Comment: 109-1 Performed By: #### L 100.0100 ####[facility] [address] [place], [address] WBC (Bld) [#/Vol] 9.8 10*3/uL Normal 4.4-11.0 [facility] Comment on above: Order Comment: 109-1 Performed By: #### L 100.0100 ####[facility] [address] [place], [address] Eosinophil percentageOrdered By: Renard Burgos on 04-01-2024 Eosinophils/100 WBC (Bld) 0.4 % 0-5 [facility] Erythrocyte distribution wid th ratioOrdered By: Renard Burgos on 04-01-2024 Erythrocyte distribution width (RBC) [Ratio] 12.6 % 11.6-14.6 [facility] Erythrocyte distribution wid th standard deviationOrdered By: Renard Burgos on 04-01-2024 Erythrocyte distribution width (RBC) [Entitic vol] 41.2 fL 35.1-43.9 [facility] Hematocrit Auto (Bld) [Volum e fraction]Ordered By: Renard Burgos on 04-01-2024 Hematocrit (Bld) [Volume fraction] 41.7 % 40-54 [facility] Hemoglobin measurementOrdere d By: Renard Burgos on 04-01-2024 Hemoglobin (Bld) [Mass/Vol] 13.6 g/dL 13.0-16.5 [facility] Immature granulocytes/100 WB C Auto (Bld)Ordered By: Renard Burgos on 04-01-2024 Immature granulocytes/100 WBC (Bld) 0.300 % 0.0-0.9 [facility] Comment on above: IG% - Immature Granu locytes (promyelocytes, myelocytes and metamyelocytes) > 1% indicates that a LEFT SHIFT is Present. Lymphocytes Auto (Unsp spec) [#/Vol]Ordered By: Renard Burgos on 04-01-2024 Lymphocytes (Bld) [#/Vol] 1.97 10*3/uL 0.83-4.51 [facility] Lymphocytes/100 WBC Auto (Un sp spec)Ordered By: Renard Burgos on 04-01-2024 Lymphocytes/100 WBC (Bld) 20.0 % 19-41 [facility] MCV (mean corpuscular volume ) determinationOrdered By: Renard Burgos on 04-01-2024 MCV (RBC) [Entitic vol] 91.0 fL 80-94 [facility] Mean corpuscular hemoglobin (MCH) determinationOrdered By: Renard Burgos on 04-01-2024 MCH (RBC) [Entitic mass] 29.7 pg 27.0-32.0 [facility] Mean corpuscular hemoglobin concentration (MCHC) determinationOrdered By: Renard Burgos on 04-01-2024 MCHC (RBC) [Mass/Vol] 32.6 g/dL 32-36 [facility] Mean platelet volume determi nationOrdered By: Renard Burgos on 04-01-2024 Platelet mean volume (Bld) [Entitic vol] 11.3 fL 6.2-12.0 [facility] Monocyte percentageOrdered B y: Renard Burgos on 04-01-2024 Monocytes/100 WBC (Bld) 7.1 % 0-10 [facility] Neutrophil percentageOrdered By: Renard Burgos on 04-01-2024 Neutrophils/100 WBC (Bld) 71.8 % High 47-70 [facility] Nucleated red blood cell per centageOrdered By: Renard Burgos on 04-01-2024 Nucleated RBC/100 WBC (Bld) [Ratio] 0 % 0-5 [facility] Platelet countOrdered By: Garrick Bhatt on 04-01-2024 Platelets (Bld) [#/Vol] 195 10*3/uL 150-450 [facility] RBC Auto (Bld) [#/Vol]Ordere d By: Renard Burgos on 04-01-2024 RBC (Bld) [#/Vol] 4.58 10*6/uL Low 4.6-6.2 [facility] White blood cell (WBC) count Ordered By: Renard Burgos on 04-01-2024 WBC (Bld) [#/Vol] 9.8 10*3/uL 4.4-11.0 [facility] Absolute neutrophil countOrd ered By: Renard Burgos on 03-25-2024 Neutrophils (Bld) [#/Vol] 5.4 10*3/uL 2.0-7.7 [facility] Basophil percentageOrdered B y: Renard Burgos on 03-25-2024 Basophils/100 WBC (Bld) 0.5 % 0-1 [facility] CBC W/Diff, Automatedon 03-02 Absolute Lymph 2.14 X10 3/uL Normal 0.83-4.51 [facility] Comment on above: Order Comment: 109-1 Performed By: #### L 100.0100 ####[facility] [address] [place], [address] Absolute Neut 5.4 X10 3/uL Normal 2.0-7.7 [facility] Comment on above: Order Comment: 109-1 Performed By: #### L 100.0100 ####[facility] [address] [place], [address] Basophils/100 WBC (Bld) 0.5 % Normal 0-1 [facility] Comment on above: Order Comment: 109-1 Performed By: #### L 100.0100 ####[facility] [address] [place], [address] Eosinophils/100 WBC (Bld) 0.7 % Normal 0-5 [facility] Comment on above: Order Comment: 109-1 Performed By: #### L 100.0100 ####[facility] [address] [place], [address] Erythrocyte distribution width (RBC) [Ratio] 12.7 % Normal 11.6-14.6 [facility] Comment on above: Order Comment: 109-1 Performed By: #### L 100.0100 ####[facility] [address] [place], [address] Hematocrit (Bld) [Volume fraction] 42.3 % Normal 40-54 [facility] Comment on above: Order Comment: 109-1 Performed By: #### L 100.0100 ####[facility] [address] [place], [address] Hemoglobin (Bld) [Mass/Vol] 13.7 g/dL Normal 13.0-16.5 [facility] Comment on above: Order Comment: 109-1 Performed By: #### L 100.0100 ####[facility] [address] [place], [address] IG% 0.500 Normal 0.0-0.9 [facility] Comment on above: Order Comment: 109-1 Result Comment: IG% - Immature Granulocytes (promyelocytes, myelocytes andmetamyelocytes) > 1% indicates that a LEFT SHIFT is Present. Performed By: #### L 100.0100 ####[facility] [address] [place], [address] Lymphocytes/100 WBC (Bld) 25.8 % Normal 19-41 [facility] Comment on above: Order Comment: 109-1 Performed By: #### L 100.0100 ####[facility] [address] [place], [address] MCH (RBC) [Entitic mass] 29.2 pg Normal 27.0-32.0 [facility] Comment on above: Order Comment: 109-1 Performed By: #### L 100.0100 ####[facility] [address] [place], [address] MCHC (RBC) [Mass/Vol] 32.4 g/dL Normal 32-36 [facility] Comment on above: Order Comment: 109-1 Performed By: #### L 100.0100 ####[facility] [address] [place], [address] MCV (RBC) [Entitic vol] 90.2 fL Normal 80-94 [facility] Comment on above: Order Comment: 109-1 Performed By: #### L 100.0100 ####[facility] [address] [place], [address] Monocytes/100 WBC (Bld) 8.0 % Normal 0-10 [facility] Comment on above: Order Comment: 109-1 Performed By: #### L 100.0100 ####[facility] [address] [place], [address] Neutrophils/100 WBC (Bld) 64.5 % Normal 47-70 [facility] Comment on above: Order Comment: 109-1 Performed By: #### L 100.0100 ####[facility] [address] [place], [address] Nucleated RBC (Bld) [#/Vol] 0 10*3/uL Normal 0-5 [facility] Comment on above: Order Comment: 109-1 Performed By: #### L 100.0100 ####[facility] [address] [place], [address] Platelet mean volume (Bld) [Entitic vol] 11.2 fL Normal 6.2-12.0 [facility] Comment on above: Order Comment: 109-1 Performed By: #### L 100.0100 ####[facility] [address] [place], [address] Platelets (Bld) [#/Vol] 204 10*3/uL Normal 150-450 [facility] Comment on above: Order Comment: 109-1 Performed By: #### L 100.0100 ####[facility] [address] [place], [address] RBC (Bld) [#/Vol] 4.69 10*6/uL Normal 4.6-6.2 [facility] Comment on above: Order Comment: 109-1 Performed By: #### L 100.0100 ####[facility] [address] [place], [place], [id number](160) RDW SD 41.8 fl Normal 35.1-43.9 [facility] Comment on above: Order Comment: 109-1 Performed By: #### L 100.0100 ####[facility] [address] [place], [address] WBC (Bld) [#/Vol] 8.3 10*3/uL Normal 4.4-11.0 [facility] Comment on above: Order Comment: 109-1 Performed By: #### L 100.0100 ####[facility] [address] [place], [place], [address] Eosinophil percentageOrdered By: Renard Burgos on 03-25-2024 Eosinophils/100 WBC (Bld) 0.7 % 0-5 [facility] Erythrocyte distribution wid th ratioOrdered By: Renard Burgos on 03-25-2024 Erythrocyte distribution width (RBC) [Ratio] 12.7 % 11.6-14.6 [facility] Erythrocyte distribution wid th standard deviationOrdered By: Renard Burgos on 03-25-2024 Erythrocyte distribution width (RBC) [Entitic vol] 41.8 fL 35.1-43.9 [facility] Hematocrit Auto (Bld) [Volum e fraction]Ordered By: Renard Burgos on 03-25-2024 Hematocrit (Bld) [Volume fraction] 42.3 % 40-54 [facility] Hemoglobin measurementOrdere d By: Renard Burgos on 03-25-2024 Hemoglobin (Bld) [Mass/Vol] 13.7 g/dL 13.0-16.5 [facility] Immature granulocytes/100 WB C Auto (Bld)Ordered By: Renard Burgos on 03-25-2024 Immature granulocytes/100 WBC (Bld) 0.500 % 0.0-0.9 [facility] Comment on above: IG% - Immature Granu locytes (promyelocytes, myelocytes and metamyelocytes) > 1% indicates that a LEFT SHIFT is Present. Lymphocytes Auto (Unsp spec) [#/Vol]Ordered By: Renard Burgos on 03-25-2024 Lymphocytes (Bld) [#/Vol] 2.14 10*3/uL 0.83-4.51 [facility] Lymphocytes/100 WBC Auto (Un sp spec)Ordered By: Renard Burgos on 03-25-2024 Lymphocytes/100 WBC (Bld) 25.8 % 19-41 [facility] MCV (mean corpuscular volume ) determinationOrdered By: Renard Burgos on 03-25-2024 MCV (RBC) [Entitic vol] 90.2 fL 80-94 [facility] Mean corpuscular hemoglobin (MCH) determinationOrdered By: Renard Burgos on 03-25-2024 MCH (RBC) [Entitic mass] 29.2 pg 27.0-32.0 [facility] Mean corpuscular hemoglobin concentration (MCHC) determinationOrdered By: Renard Burgos on 03-25-2024 MCHC (RBC) [Mass/Vol] 32.4 g/dL 32-36 [facility] Mean platelet volume determi nationOrdered By: Renard Burgos on 03-25-2024 Platelet mean volume (Bld) [Entitic vol] 11.2 fL 6.2-12.0 [facility] Monocyte percentageOrdered B y: Renard Burgos on 03-25-2024 Monocytes/100 WBC (Bld) 8.0 % 0-10 [facility] Neutrophil percentageOrdered By: Renard Burgos on 03-25-2024 Neutrophils/100 WBC (Bld) 64.5 % 47-70 [facility] Nucleated red blood cell per centageOrdered By: Renard Burgos on 03-25-2024 Nucleated RBC/100 WBC (Bld) [Ratio] 0 % 0-5 [facility] Platelet countOrdered By: Garrick Bhatt on 03-25-2024 Platelets (Bld) [#/Vol] 204 10*3/uL 150-450 [facility] RBC Auto (Bld) [#/Vol]Ordere d By: Renard Burgos on 03-25-2024 RBC (Bld) [#/Vol] 4.69 10*6/uL 4.6-6.2 [facility] White blood cell (WBC) count Ordered By: Renard Hensleyrustam on 03-25-2024 WBC (Bld) [#/Vol] 8.3 10*3/uL 4.4-11.0 [facility] Absolute neutrophil countOrd ered By: Renard Burgos on 03-18-2024 Neutrophils (Bld) [#/Vol] 5.2 10*3/uL 2.0-7.7 [facility] Basophil percentageOrdered B y: Renard Burgos on 03-18-2024 Basophils/100 WBC (Bld) 0.6 % 0-1 [facility] CBC W/Diff, Automatedon 03-01 Absolute Lymph 2.23 X10 3/uL Normal 0.83-4.51 [facility] Comment on above: Order Comment: 109.1 Performed By: #### L 100.0100 ####[facility] [address] [place], [address] Absolute Neut 5.2 X10 3/uL Normal 2.0-7.7 [facility] Comment on above: Order Comment: 109.1 Performed By: #### L 100.0100 ####[facility] [address] [place], [address] Basophils/100 WBC (Bld) 0.6 % Normal 0-1 [facility] Comment on above: Order Comment: 109.1 Performed By: #### L 100.0100 ####[facility] [address] [place], [address] Eosinophils/100 WBC (Bld) 0.7 % Normal 0-5 [facility] Comment on above: Order Comment: 109.1 Performed By: #### L 100.0100 ####[facility] [address] [place], [address] Erythrocyte distribution width (RBC) [Ratio] 12.8 % Normal 11.6-14.6 [facility] Comment on above: Order Comment: 109.1 Performed By: #### L 100.0100 ####[facility] [address] [place], [address] Hematocrit (Bld) [Volume fraction] 42.0 % Normal 40-54 [facility] Comment on above: Order Comment: 109.1 Performed By: #### L 100.0100 ####[facility] [address] [place], [address] Hemoglobin (Bld) [Mass/Vol] 13.6 g/dL Normal 13.0-16.5 [facility] Comment on above: Order Comment: 109.1 Performed By: #### L 100.0100 ####[facility] [address] [place], [address] IG% 0.500 Normal 0.0-0.9 [facility] Comment on above: Order Comment: 109.1 Result Comment: IG% - Immature Granulocytes (promyelocytes, myelocytes andmetamyelocytes) > 1% indicates that a LEFT SHIFT is Present. Performed By: #### L 100.0100 ####[facility] [address] [place], [address] Lymphocytes/100 WBC (Bld) 27.0 % Normal 19-41 [facility] Comment on above: Order Comment: 109.1 Performed By: #### L 100.0100 ####[facility] [address] [place], [address] MCH (RBC) [Entitic mass] 29.5 pg Normal 27.0-32.0 [facility] Comment on above: Order Comment: 109.1 Performed By: #### L 100.0100 ####[facility] [address] [place], [address] MCHC (RBC) [Mass/Vol] 32.4 g/dL Normal 32-36 [facility] Comment on above: Order Comment: 109.1 Performed By: #### L 100.0100 ####[facility] [address] [place], [address] MCV (RBC) [Entitic vol] 91.1 fL Normal 80-94 [facility] Comment on above: Order Comment: 109.1 Performed By: #### L 100.0100 ####[facility] [address] [place], [address] Monocytes/100 WBC (Bld) 8.5 % Normal 0-10 [facility] Comment on above: Order Comment: 109.1 Performed By: #### L 100.0100 ####[facility] [address] [place], [address] Neutrophils/100 WBC (Bld) 62.7 % Normal 47-70 [facility] Comment on above: Order Comment: 109.1 Performed By: #### L 100.0100 ####[facility] [address] [place], [address] Nucleated RBC (Bld) [#/Vol] 0 10*3/uL Normal 0-5 [facility] Comment on above: Order Comment: 109.1 Performed By: #### L 100.0100 ####[facility] [address] [place], [address] Platelet mean volume (Bld) [Entitic vol] 10.8 fL Normal 6.2-12.0 [facility] Comment on above: Order Comment: 109.1 Performed By: #### L 100.0100 ####[facility] [address] [place], [address] Platelets (Bld) [#/Vol] 211 10*3/uL Normal 150-450 [facility] Comment on above: Order Comment: 109.1 Performed By: #### L 100.0100 ####[facility] [address] [place], [address] RBC (Bld) [#/Vol] 4.61 10*6/uL Normal 4.6-6.2 [facility] Comment on above: Order Comment: 109.1 Performed By: #### L 100.0100 ####[facility] [address] [place], [address] RDW SD 42.3 fl Normal 35.1-43.9 [facility] Comment on above: Order Comment: 109.1 Performed By: #### L 100.0100 ####[facility] [address] [place], [address] WBC (Bld) [#/Vol] 8.3 10*3/uL Normal 4.4-11.0 [facility] Comment on above: Order Comment: 109.1 Performed By: #### L 100.0100 ####[facility] [address] [place], [address] Eosinophil percentageOrdered By: Renard Burgos on 03-18-2024 Eosinophils/100 WBC (Bld) 0.7 % 0-5 [facility] Erythrocyte distribution wid th ratioOrdered By: Renard Burgos on 03-18-2024 Erythrocyte distribution width (RBC) [Ratio] 12.8 % 11.6-14.6 [facility] Erythrocyte distribution wid th standard deviationOrdered By: Renard Burgos on 03-18-2024 Erythrocyte distribution width (RBC) [Entitic vol] 42.3 fL 35.1-43.9 [facility] Hematocrit Auto (Bld) [Volum e fraction]Ordered By: Renard Burgos on 03-18-2024 Hematocrit (Bld) [Volume fraction] 42.0 % 40-54 [facility] Hemoglobin measurementOrdere d By: Renard Burgos on 03-18-2024 Hemoglobin (Bld) [Mass/Vol] 13.6 g/dL 13.0-16.5 [facility] Immature granulocytes/100 WB C Auto (Bld)Ordered By: Renard Burgos on 03-18-2024 Immature granulocytes/100 WBC (Bld) 0.500 % 0.0-0.9 [facility] Comment on above: IG% - Immature Granu locytes (promyelocytes, myelocytes and metamyelocytes) > 1% indicates that a LEFT SHIFT is Present. Lymphocytes Auto (Unsp spec) [#/Vol]Ordered By: Renard Burgos on 03-18-2024 Lymphocytes (Bld) [#/Vol] 2.23 10*3/uL 0.83-4.51 [facility] Lymphocytes/100 WBC Auto (Un sp spec)Ordered By: Renard Burgos on 03-18-2024 Lymphocytes/100 WBC (Bld) 27.0 % 19-41 [facility] [facility] MCV (mean corpuscular volume ) determinationOrdered By: Renard Burgos on 03-18-2024 MCV (RBC) [Entitic vol] 91.1 fL 80-94 [facility] Mean corpuscular hemoglobin (MCH) determinationOrdered By: Renard Burgos on 03-18-2024 MCH (RBC) [Entitic mass] 29.5 pg 27.0-32.0 [facility] Mean corpuscular hemoglobin concentration (MCHC) determinationOrdered By: Renard Burgos on 03-18-2024 MCHC (RBC) [Mass/Vol] 32.4 g/dL 32-36 [facility] Mean platelet volume determi nationOrdered By: Renard Burgos on 03-18-2024 Platelet mean volume (Bld) [Entitic vol] 10.8 fL 6.2-12.0 [facility] Monocyte percentageOrdered B y: Renard Burgos on 03-18-2024 Monocytes/100 WBC (Bld) 8.5 % 0-10 [facility] Neutrophil percentageOrdered By: Renard Burgos on 03-18-2024 Neutrophils/100 WBC (Bld) 62.7 % 47-70 [facility] Nucleated red blood cell per centageOrdered By: Renard Burgos on 03-18-2024 Nucleated RBC/100 WBC (Bld) [Ratio] 0 % 0-5 [facility] Platelet countOrdered By: Garrick Bhatt on 03-18-2024 Platelets (Bld) [#/Vol] 211 10*3/uL 150-450 [facility] RBC Auto (Bld) [#/Vol]Ordere d By: Renard Burgos on 03-18-2024 RBC (Bld) [#/Vol] 4.61 10*6/uL 4.6-6.2 [facility] White blood cell (WBC) count Ordered By: Renard uBrgos on 03-18-2024 WBC (Bld) [#/Vol] 8.3 10*3/uL 4.4-11.0 [facility] Absolute neutrophil countOrd ered By: Renard Burgos on 03-11-2024 Neutrophils (Bld) [#/Vol] 6.2 10*3/uL 2.0-7.7 [facility] Automated blood erythrocyte countOrdered By: Renard Burgos on 03-11-2024 RBC (Bld) [#/Vol] 4.54 10*6/uL Low 4.6-6.2 [facility] Comment on above: Order Comment: 109.1 Performed By: #### L 100.0100 ####[facility] [address] [place], [place], [id number] Automated blood hematocrit ( percentage)Ordered By: Renard Burgos on 03-11-2024 Hematocrit (Bld) [Volume fraction] 41.5 % Normal 40-54 [facility] Comment on above: Order Comment: 109.1 Performed By: #### L 100.0100 ####[facility] [address] [place], [place], [id number] Automated lymphocyte count a s percentage of total leukocytesOrdered By: Renard Burgos on 03-11-2024 Lymphocytes/100 WBC (Bld) 25.6 % Normal 19-41 [facility] Comment on above: Order Comment: 109.1 Performed By: #### L 100.0100 ####[facility] [address] [place], [place], [phone] Basophil percentageOrdered B y: Renard Burgos on 03-11-2024 Basophils/100 WBC (Bld) 0.5 % Normal 0-1 [facility] Comment on above: Order Comment: 109.1 Performed By: #### L 100.0100 ####[facility] [address] [place], [address] CBC W/Diff, Automatedon 03-01 Absolute Lymph 2.50 X10 3/uL Normal 0.83-4.51 [facility] Comment on above: Order Comment: 109.1 Performed By: #### L 100.0100 ####[facility] [address] [place], [address] Absolute Neut 6.2 X10 3/uL Normal 2.0-7.7 [facility] Comment on above: Order Comment: 109.1 Performed By: #### L 100.0100 ####[facility] [address] [place], [address] IG% 0.500 Normal 0.0-0.9 [facility] Comment on above: Order Comment: 109.1 Result Comment: IG% - Immature Granulocytes (promyelocytes, myelocytes andmetamyelocytes) > 1% indicates that a LEFT SHIFT is Present. Performed By: #### L 100.0100 ####[facility] [address] [place], [address] Nucleated RBC (Bld) [#/Vol] 0 10*3/uL Normal 0-5 [facility] Comment on above: Order Comment: 109.1 Performed By: #### L 100.0100 ####[facility] [address] [place], [address] RDW SD 41.5 fl Normal 35.1-43.9 [facility] Comment on above: Order Comment: 109.1 Performed By: #### L 100.0100 ####[facility] [address] [place], [address] Eosinophil percentageOrdered By: Renard Burgos on 03-11-2024 Eosinophils/100 WBC (Bld) 0.6 % Normal 0-5 [facility] Comment on above: Order Comment: 109.1 Performed By: #### L 100.0100 ####[facility] [address] [place], [place], [id number] Erythrocyte distribution wid th ratioOrdered By: Renard Burgos on 03-11-2024 Erythrocyte distribution width (RBC) [Ratio] 12.7 % Normal 11.6-14.6 [facility] Comment on above: Order Comment: 109.1 Performed By: #### L 100.0100 ####[facility] [address] [place], [place], [id number] Erythrocyte distribution wid th standard deviationOrdered By: Renard Burgos on 03-11-2024 Erythrocyte distribution width (RBC) [Entitic vol] 41.5 fL 35.1-43.9 [facility] Hemoglobin measurementOrdere d By: Renard Burgos on 03-11-2024 Hemoglobin (Bld) [Mass/Vol] 13.8 g/dL Normal 13.0-16.5 [facility] Comment on above: Order Comment: 109.1 Performed By: #### L 100.0100 ####[facility] [address] [place], [place], [id number] Immature granulocytes/100 WB C Auto (Bld)Ordered By: Renard Burgos on 03-11-2024 Immature granulocytes/100 WBC (Bld) 0.500 % 0.0-0.9 [facility] Comment on above: IG% - Immature Granu locytes (promyelocytes, myelocytes and metamyelocytes) > 1% indicates that a LEFT SHIFT is Present. Lymphocytes Auto (Unsp spec) [#/Vol]Ordered By: Renard Burgos on 03-11-2024 Lymphocytes (Bld) [#/Vol] 2.50 10*3/uL 0.83-4.51 [facility] MCV (mean corpuscular volume ) determinationOrdered By: Renard Burgos on 03-11-2024 MCV (RBC) [Entitic vol] 91.4 fL Normal 80-94 [facility] Comment on above: Order Comment: 109.1 Performed By: #### L 100.0100 ####[facility] [address] [place], [address] Mean corpuscular hemoglobin (MCH) determinationOrdered By: Renard Burgos on 03-11-2024 MCH (RBC) [Entitic mass] 30.4 pg Normal 27.0-32.0 [facility] Comment on above: Order Comment: 109.1 Performed By: #### L 100.0100 ####[facility] [address] [place], [address] Mean corpuscular hemoglobin concentration (MCHC) determinationOrdered By: Renard Burgos on 03-11-2024 MCHC (RBC) [Mass/Vol] 33.3 g/dL Normal 32-36 [facility] Comment on above: Order Comment: 109.1 Performed By: #### L 100.0100 ####[facility] [address] [place], [address] Mean platelet volume determi nationOrdered By: Renard Burgos on 03-11-2024 Platelet mean volume (Bld) [Entitic vol] 11.0 fL Normal 6.2-12.0 [facility] Comment on above: Order Comment: 109.1 Performed By: #### L 100.0100 ####[facility] [address] [place], [address] Monocyte percentageOrdered B y: Renard Burgos on 03-11-2024 Monocytes/100 WBC (Bld) 9.0 % Normal 0-10 [facility] Comment on above: Order Comment: 109.1 Performed By: #### L 100.0100 ####[facility] [address] [place], [address] Neutrophil percentageOrdered By: Renard Burgos on 03-11-2024 Neutrophils/100 WBC (Bld) 63.8 % Normal 47-70 [facility] Comment on above: Order Comment: 109.1 Performed By: #### L 100.0100 ####[facility] [address] [place], [address] Nucleated red blood cell per centageOrdered By: Renard Burgos on 03-11-2024 Nucleated RBC/100 WBC (Bld) [Ratio] 0 % 0-5 [facility] Platelet countOrdered By: Garrick Bhatt on 03-11-2024 Platelets (Bld) [#/Vol] 220 10*3/uL Normal 150-450 [facility] Comment on above: Order Comment: 109.1 Performed By: #### L 100.0100 ####[facility] [address] [place], [address] White blood cell (WBC) count Ordered By: Renard Burgos on 03-11-2024 WBC (Bld) [#/Vol] 9.8 10*3/uL Normal 4.4-11.0 [facility] Comment on above: Order Comment: 109.1 Performed By: #### L 100.0100 ####[facility] [address] [place], [address] CBC W/Diff, Automatedon 11-0 -2023 Absolute Lymph 1.99 X10 3/uL Normal 0.83-4.51 [facility] Comment on above: Order Comment: 109.1 Performed By: #### L 100.0100 ####[facility] [address] [place], [address] Absolute Neut 5.3 X10 3/uL Normal 2.0-7.7 [facility] Comment on above: Order Comment: 109.1 Performed By: #### L 100.0100 ####[facility] [address] [place], [address] Basophils/100 WBC (Bld) 0.6 % Normal 0-1 [facility] Comment on above: Order Comment: 109.1 Performed By: #### L 100.0100 ####[facility] [address] [place], [address] Eosinophils/100 WBC (Bld) 0.7 % Normal 0-5 [facility] Comment on above: Order Comment: 109.1 Performed By: #### L 100.0100 ####[facility] [address] [place], [address] Erythrocyte distribution width (RBC) [Ratio] 12.7 % Normal 11.6-14.6 [facility] Comment on above: Order Comment: 109.1 Performed By: #### L 100.0100 ####[facility] [address] [place], [address] Hematocrit (Bld) [Volume fraction] 42.1 % Normal 40-54 [facility] Comment on above: Order Comment: 109.1 Performed By: #### L 100.0100 ####[facility] [address] [place], [address] Hemoglobin (Bld) [Mass/Vol] 14.0 g/dL Normal 13.0-16.5 [facility] Comment on above: Order Comment: 109.1 Performed By: #### L 100.0100 ####[facility] [address] [place], [address] IG% 0.400 Normal 0.0-0.9 [facility] Comment on above: Order Comment: 109.1 Result Comment: IG% - Immature Granulocytes (promyelocytes, myelocytes andmetamyelocytes) > 1% indicates that a LEFT SHIFT is Present. Performed By: #### L 100.0100 ####[facility] [address] [place], [address] Lymphocytes/100 WBC (Bld) 24.5 % Normal 19-41 [facility] Comment on above: Order Comment: 109.1 Performed By: #### L 100.0100 ####[facility] [address] [place], [address] MCH (RBC) [Entitic mass] 30.2 pg Normal 27.0-32.0 [facility] Comment on above: Order Comment: 109.1 Performed By: #### L 100.0100 ####[facility] [address] [place], [address] MCHC (RBC) [Mass/Vol] 33.3 g/dL Normal 32-36 [facility] Comment on above: Order Comment: 109.1 Performed By: #### L 100.0100 ####[facility] [address] [place], [address] MCV (RBC) [Entitic vol] 90.7 fL Normal 80-94 [facility] Comment on above: Order Comment: 109.1 Performed By: #### L 100.0100 ####[facility] [address] [place], [address] Monocytes/100 WBC (Bld) 8.2 % Normal 0-10 [facility] Comment on above: Order Comment: 109.1 Performed By: #### L 100.0100 ####[facility] [address] [place], [address] Neutrophils/100 WBC (Bld) 65.6 % Normal 47-70 [facility] Comment on above: Order Comment: 109.1 Performed By: #### L 100.0100 ####[facility] [address] [place], [address] Nucleated RBC (Bld) [#/Vol] 0 10*3/uL Normal 0-5 [facility] Comment on above: Order Comment: 109.1 Performed By: #### L 100.0100 ####[facility] [address] [place], [address] Platelet mean volume (Bld) [Entitic vol] 11.0 fL Normal 6.2-12.0 [facility] Comment on above: Order Comment: 109.1 Performed By: #### L 100.0100 ####[facility] [address] [place], [address] Platelets (Bld) [#/Vol] 216 10*3/uL Normal 150-450 [facility] Comment on above: Order Comment: 109.1 Performed By: #### L 100.0100 ####[facility] [address] [place], [address] RBC (Bld) [#/Vol] 4.64 10*6/uL Normal 4.6-6.2 [facility] Comment on above: Order Comment: 109.1 Performed By: #### L 100.0100 ####[facility] [address] [place], [address] RDW SD 41.9 fl Normal 35.1-43.9 [facility] Comment on above: Order Comment: 109.1 Performed By: #### L 100.0100 ####[facility] [address] [place], [address] WBC (Bld) [#/Vol] 8.1 10*3/uL Normal 4.4-11.0 [facility] Comment on above: Order Comment: 109.1 Performed By: #### L 100.0100 ####[facility] [address] [place], [address] CBC W/Diff, Automatedon 10-2 Absolute Lymph 2.15 X10 3/uL Normal 0.83-4.51 [facility] Comment on above: Order Comment: 109.1 Performed By: #### L 100.0100 ####[facility] [address] [place], [address] Absolute Neut 7.1 X10 3/uL Normal 2.0-7.7 [facility] Comment on above: Order Comment: 109.1 Performed By: #### L 100.0100 ####[facility] [address] [place], [address] Basophils/100 WBC (Bld) 0.4 % Normal 0-1 [facility] Comment on above: Order Comment: 109.1 Performed By: #### L 100.0100 ####[facility] [address] [place], [address] Eosinophils/100 WBC (Bld) 0.6 % Normal 0-5 [facility] Comment on above: Order Comment: 109.1 Performed By: #### L 100.0100 ####[facility] [address] [place], [address] Erythrocyte distribution width (RBC) [Ratio] 12.6 % Normal 11.6-14.6 [facility] Comment on above: Order Comment: 109.1 Performed By: #### L 100.0100 ####[facility] [address] [place], [address] Hematocrit (Bld) [Volume fraction] 40.2 % Normal 40-54 [facility] Comment on above: Order Comment: 109.1 Performed By: #### L 100.0100 ####[facility] [address] [place], [address] Hemoglobin (Bld) [Mass/Vol] 13.6 g/dL Normal 13.0-16.5 [facility] Comment on above: Order Comment: 109.1 Performed By: #### L 100.0100 ####[facility] [address] [place], [address] IG% 0.500 Normal 0.0-0.9 [facility] Comment on above: Order Comment: 109.1 Result Comment: IG% - Immature Granulocytes (promyelocytes, myelocytes andmetamyelocytes) > 1% indicates that a LEFT SHIFT is Present. Performed By: #### L 100.0100 ####[facility] [address] [place], [address] Lymphocytes/100 WBC (Bld) 20.9 % Normal 19-41 [facility] Comment on above: Order Comment: 109.1 Performed By: #### L 100.0100 ####[facility] [address] [place], [address] MCH (RBC) [Entitic mass] 30.6 pg Normal 27.0-32.0 [facility] Comment on above: Order Comment: 109.1 Performed By: #### L 100.0100 ####[facility] [address] [place], [address] MCHC (RBC) [Mass/Vol] 33.8 g/dL Normal 32-36 [facility] Comment on above: Order Comment: 109.1 Performed By: #### L 100.0100 ####[facility] [address] [place], [address] MCV (RBC) [Entitic vol] 90.5 fL Normal 80-94 [facility] Comment on above: Order Comment: 109.1 Performed By: #### L 100.0100 ####[facility] [address] [place], [address] Monocytes/100 WBC (Bld) 8.5 % Normal 0-10 [facility] Comment on above: Order Comment: 109.1 Performed By: #### L 100.0100 ####[facility] [address] [place], [address] Neutrophils/100 WBC (Bld) 69.1 % Normal 47-70 [facility] Comment on above: Order Comment: 109.1 Performed By: #### L 100.0100 ####[facility] [address] [place], [address] Nucleated RBC (Bld) [#/Vol] 0 10*3/uL Normal 0-5 [facility] Comment on above: Order Comment: 109.1 Performed By: #### L 100.0100 ####[facility] [address] [place], [address] Platelet mean volume (Bld) [Entitic vol] 11.2 fL Normal 6.2-12.0 [facility] Comment on above: Order Comment: 109.1 Performed By: #### L 100.0100 ####[facility] [address] [place], [address] Platelets (Bld) [#/Vol] 226 10*3/uL Normal 150-450 [facility] Comment on above: Order Comment: 109.1 Performed By: #### L 100.0100 ####[facility] [address] [place], [address] RBC (Bld) [#/Vol] 4.44 10*6/uL Low 4.6-6.2 [facility] Comment on above: Order Comment: 109.1 Performed By: #### L 100.0100 ####[facility] [address] [place], [address] RDW SD 41.5 fl Normal 35.1-43.9 [facility] Comment on above: Order Comment: 109.1 Performed By: #### L 100.0100 ####[facility] [address] [place], [address] WBC (Bld) [#/Vol] 10.3 10*3/uL Normal 4.4-11.0 [facility] Comment on above: Order Comment: 109.1 Performed By: #### L 100.0100 ####[facility] [address] [place], [address] CBC-Complete Blood Cnt No Di ffon 02-23-2024 Erythrocyte distribution width (RBC) [Ratio] 12.9 % Normal 11.6-14.6 [facility] Comment on above: Order Comment: 109-1 Performed By: #### L 100.0500, L500.4100, L500.4050 ####[facility] [address] [place], [address] Hematocrit (Bld) [Volume fraction] 41.6 % Normal 40-54 [facility] Comment on above: Order Comment: 109-1 Performed By: #### L 100.0500, L500.4100, L500.4050 ####[facility] [address] [place], [address] Hemoglobin (Bld) [Mass/Vol] 14.0 g/dL Normal 13.0-16.5 [facility] Comment on above: Order Comment: 109-1 Performed By: #### L 100.0500, L500.4100, L500.4050 ####[facility] [address] [place], [address] MCH (RBC) [Entitic mass] 30.6 pg Normal 27.0-32.0 [facility] Comment on above: Order Comment: 109-1 Performed By: #### L 100.0500, L500.4100, L500.4050 ####[facility] [address] [place], [address] MCHC (RBC) [Mass/Vol] 33.7 g/dL Normal 32-36 [facility] Comment on above: Order Comment: 109-1 Performed By: #### L 100.0500, L500.4100, L500.4050 ####[facility] [address] [place], [address] MCV (RBC) [Entitic vol] 91.0 fL Normal 80-94 [facility] Comment on above: Order Comment: 109-1 Performed By: #### L 100.0500, L500.4100, L500.4050 ####[facility] [address] [place], [address] Platelet mean volume (Bld) [Entitic vol] 11.5 fL Normal 6.2-12.0 [facility] Comment on above: Order Comment: 109-1 Performed By: #### L 100.0500, L500.4100, L500.4050 ####[facility] [address] [place], [address] Platelets (Bld) [#/Vol] 209 10*3/uL Normal 150-450 [facility] Comment on above: Order Comment: 109-1 Performed By: #### L 100.0500, L500.4100, L500.4050 ####[facility] [address] [place], [address] RBC (Bld) [#/Vol] 4.57 10*6/uL Low 4.6-6.2 [facility] Comment on above: Order Comment: 109-1 Performed By: #### L 100.0500, L500.4100, L500.4050 ####[facility] [address] [place], [address] RDW SD 42.4 fl Normal 35.1-43.9 [facility] Comment on above: Order Comment: 109-1 Performed By: #### L 100.0500, L500.4100, L500.4050 ####[facility] [address] [place], [address] WBC (Bld) [#/Vol] 8.4 10*3/uL Normal 4.4-11.0 [facility] Comment on above: Order Comment: 109-1 Performed By: #### L 100.0500, L500.4100, L500.4050 ####[facility] [address] [place], [address] Comprehensive Metabolic Prof ilon 02-23-2024 Albumin [Mass/Vol] 3.1 g/dL Low 3.2-5.0 [facility] Comment on above: Order Comment: 109-1 Performed By: #### L 100.0500, L500.4100, L500.4050 ####[facility] [address] [place], [address] Albumin/Globulin [Mass ratio] 1.1 {ratio} Normal 0.9-2.4 [facility] Comment on above: Order Comment: 109-1 Performed By: #### L 100.0500, L500.4100, L500.4050 ####[facility] [address] [place], [address] ALK P 123 U/L High 45-117 [facility] Comment on above: Order Comment: 109-1 Performed By: #### L 100.0500, L500.4100, L500.4050 ####[facility] [address] [place], [address] ALT [Catalytic activity/Vol] 16 U/L Normal 16-61 [facility] Comment on above: Order Comment: 109-1 Performed By: #### L 100.0500, L500.4100, L500.4050 ####[facility] [address] [place], [address] AST [Catalytic activity/Vol] 10 U/L Low 15-37 [facility] Comment on above: Order Comment: 109-1 Performed By: #### L 100.0500, L500.4100, L500.4050 ####[facility] [address] [place], [address] Bilirubin [Mass/Vol] 0.50 mg/dL Normal 0.20-1.00 [facility] Comment on above: Order Comment: 109-1 Result Comment: For patients on eltrombopag therapy, use of Dimension [place] TBIL is not recommended. Performed By: #### L 100.0500, L500.4100, L500.4050 ####[facility] [address] [place], [address] BUN/CRE 24.9 RATIO High 10-20 [facility] Comment on above: Order Comment: 109-1 Performed By: #### L 100.0500, L500.4100, L500.4050 ####[facility] [address] [place], [address] CA,Total 8.5 mg/dL Normal 8.5-10.1 [facility] Comment on above: Order Comment: 109-1 Performed By: #### L 100.0500, L500.4100, L500.4050 ####[facility] [address] [place], [address] Chloride [Moles/Vol] 109 mmol/L High 98-107 [facility] Comment on above: Order Comment: 109-1 Performed By: #### L 100.0500, L500.4100, L500.4050 ####[facility] [address] [place], [address] CO2 [Moles/Vol] 27.0 mmol/L Normal 21.0-32.0 [facility] Comment on above: Order Comment: 109-1 Performed By: #### L 100.0500, L500.4100, L500.4050 ####[facility] [address] [place], [address] Creatinine [Mass/Vol] 0.64 mg/dL Low 0.70-1.30 [facility] Comment on above: Order Comment: 109-1 Result Comment: The validity of the calculated GFR GFRAA in patients over70 years has not been determined. Clinical correlation isessential. Performed By: #### L 100.0500, L500.4100, L500.4050 ####[facility] [address] [place], [address] EST GFR - AA 160 mL/min Normal >60 [facility] Comment on above: Order Comment: 109-1 Result Comment: Afri can [place] GFR Calc Performed By: #### L 100.0500, L500.4100, L500.4050 ####[facility] [address] [place], [address] GAP 6 Normal 5-15 [facility] Comment on above: Order Comment: 109-1 Performed By: #### L 100.0500, L500.4100, L500.4050 ####[facility] [address] [place], [address] GFR/1.73 sq M.predicted among non-blacks MDRD (S/P/Bld) [Vol rate/Area] 132 mL/min/{1.73_m2} Normal >60 [facility] Comment on above: Order Comment: 109-1 Result Comment: Non- GFR Calc Performed By: #### L 100.0500, L500.4100, L500.4050 ####[facility] [address] [place], [address] Globulin (S) [Mass/Vol] 2.9 g/dL Normal 2.2-4.2 [facility] Comment on above: Order Comment: 109-1 Performed By: #### L 100.0500, L500.4100, L500.4050 ####[facility] [address] [place], [address] Glucose [Mass/Vol] 111 mg/dL High 74-106 [facility] Comment on above: Order Comment: 109-1 Result Comment: Fast ing Glucose result from 100 to 125 mg/dLsuggests [employer] per A.D.A. criteria. Performed By: #### L 100.0500, L500.4100, L500.4050 ####[facility] [address] [place], [address] Potassium [Moles/Vol] 3.6 mmol/L Normal 3.5-5.1 [facility] Comment on above: Order Comment: 109-1 Performed By: #### L 100.0500, L500.4100, L500.4050 ####[facility] [address] [place], [address] Sodium [Moles/Vol] 141 mmol/L Normal 136-145 [facility] Comment on above: Order Comment: 109-1 Performed By: #### L 100.0500, L500.4100, L500.4050 ####[facility] [address] [place], [address] T PROT 6.0 g/dL Low 6.4-8.2 [facility] Comment on above: Order Comment: 109-1 Performed By: #### L 100.0500, L500.4100, L500.4050 ####[facility] [address] [place], [address] Urea nitrogen [Mass/Vol] 16 mg/dL Normal 7-18 [facility] Comment on above: Order Comment: 109-1 Performed By: #### L 100.0500, L500.4100, L500.4050 ####[facility] [address] [place], [address] Lipid Profileon 02-23-2024 Cholesterol [Mass/Vol] 123 mg/dL Normal 200 [facility] Comment on above: Order Comment: 109-1 Result Comment: <200 mg/dL Desirable 200-240 mg/dL Borderline >240 mg/dL High Risk Performed By: #### L 100.0500, L500.4100, L500.4050 ####[facility] [address] [place], [address] Cholesterol in HDL [Mass/Vol] 28 mg/dL Low [facility] Comment on above: Order Comment: 109-1 Result Comment: The drugs N-Acetylcysteine and Metamizole may falselydepress this assay. Reference Range HDL <40 mg/dL Low HDL Cholesterol HDL >or= 60 mg/dL High HDL Cholesterol Performed By: #### L 100.0500, L500.4100, L500.4050 ####[facility] [address] [place], [address] Cholesterol in LDL [Mass/Vol] 71 mg/dL Normal 0-130 [facility] Comment on above: Order Comment: 109-1 Performed By: #### L 100.0500, L500.4100, L500.4050 ####[facility] [address] [place], [address] Cholesterol in VLDL [Mass/Vol] 24 mg/dL Normal 5-40 [facility] Comment on above: Order Comment: 109-1 Performed By: #### L 100.0500, L500.4100, L500.4050 ####[facility] [address] [place], [address] Triglyceride [Mass/Vol] 119 mg/dL Normal [facility] Comment on above: Order Comment: 109-1 Result Comment: The drugs N-Acetylcysteine and Metamizole may falselydepress this assay.Serum Triglycerides Reference Interval Normal <150 mg/dL Borderline high 150 - 199 mg/dL High 200 - 499 mg/dL Very High > or = 500 mg/dL Performed By: #### L 100.0500, L500.4100, L500.4050 ####[facility] [address] [place], [address] CBC W/Diff, Automatedon 10-2 Absolute Lymph 1.92 X10 3/uL Normal 0.83-4.51 [facility] Comment on above: Order Comment: 109-1 Performed By: #### L 100.0100 ####[facility] [address] [place], [address] Absolute Neut 6.9 X10 3/uL Normal 2.0-7.7 [facility] Comment on above: Order Comment: 109-1 Performed By: #### L 100.0100 ####[facility] [address] [place], [address] Basophils/100 WBC (Bld) 0.4 % Normal 0-1 [facility] Comment on above: Order Comment: 109-1 Performed By: #### L 100.0100 ####[facility] [address] [place], [address] Eosinophils/100 WBC (Bld) 0.6 % Normal 0-5 [facility] Comment on above: Order Comment: 109-1 Performed By: #### L 100.0100 ####[facility] [address] [place], [address] Erythrocyte distribution width (RBC) [Ratio] 12.9 % Normal 11.6-14.6 [facility] Comment on above: Order Comment: 109-1 Performed By: #### L 100.0100 ####[facility] [address] [place], [address] Hematocrit (Bld) [Volume fraction] 40.4 % Normal 40-54 [facility] Comment on above: Order Comment: 109-1 Performed By: #### L 100.0100 ####[facility] [address] [place], [address] Hemoglobin (Bld) [Mass/Vol] 13.3 g/dL Normal 13.0-16.5 [facility] Comment on above: Order Comment: 109-1 Performed By: #### L 100.0100 ####[facility] [address] [place], [address] IG% 0.300 Normal 0.0-0.9 [facility] Comment on above: Order Comment: 109-1 Result Comment: IG% - Immature Granulocytes (promyelocytes, myelocytes andmetamyelocytes) > 1% indicates that a LEFT SHIFT is Present. Performed By: #### L 100.0100 ####[facility] [address] [place], [address] Lymphocytes/100 WBC (Bld) 20.1 % Normal 19-41 [facility] Comment on above: Order Comment: 109-1 Performed By: #### L 100.0100 ####[facility] [address] [place], [address] MCH (RBC) [Entitic mass] 30.2 pg Normal 27.0-32.0 [facility] Comment on above: Order Comment: 109-1 Performed By: #### L 100.0100 ####[facility] [address] [place], [address] MCHC (RBC) [Mass/Vol] 32.9 g/dL Normal 32-36 [facility] Comment on above: Order Comment: 109-1 Performed By: #### L 100.0100 ####[facility] [address] [place], [address] MCV (RBC) [Entitic vol] 91.6 fL Normal 80-94 [facility] Comment on above: Order Comment: 109-1 Performed By: #### L 100.0100 ####[facility] [address] [place], [address] Monocytes/100 WBC (Bld) 6.8 % Normal 0-10 [facility] Comment on above: Order Comment: 109-1 Performed By: #### L 100.0100 ####[facility] [address] [place], [address] Neutrophils/100 WBC (Bld) 71.8 % High 47-70 [facility] Comment on above: Order Comment: 109-1 Performed By: #### L 100.0100 ####[facility] [address] [place], [address] Nucleated RBC (Bld) [#/Vol] 0 10*3/uL Normal 0-5 [facility] Comment on above: Order Comment: 109-1 Performed By: #### L 100.0100 ####[facility] [address] [place], [address] Platelet mean volume (Bld) [Entitic vol] 10.9 fL Normal 6.2-12.0 [facility] Comment on above: Order Comment: 109-1 Performed By: #### L 100.0100 ####[facility] [address] [place], [address] Platelets (Bld) [#/Vol] 209 10*3/uL Normal 150-450 [facility] Comment on above: Order Comment: 109-1 Performed By: #### L 100.0100 ####[facility] [address] [place], [address] RBC (Bld) [#/Vol] 4.41 10*6/uL Low 4.6-6.2 [facility] Comment on above: Order Comment: 109-1 Performed By: #### L 100.0100 ####[facility] [address] [place], [address] RDW SD 42.8 fl Normal 35.1-43.9 [facility] Comment on above: Order Comment: 109-1 Performed By: #### L 100.0100 ####[facility] [address] [place], [address] WBC (Bld) [#/Vol] 9.6 10*3/uL Normal 4.4-11.0 [facility] Comment on above: Order Comment: 109-1 Performed By: #### L 100.0100 ####[facility] [address] [place], [address] CBC W/Diff, Automatedon 10-1 -2023 Absolute Lymph 2.08 X10 3/uL Normal 0.83-4.51 [facility] Comment on above: Order Comment: 109.1 Performed By: #### L 100.0100 ####[facility] [address] [place], [address] Absolute Neut 6.9 X10 3/uL Normal 2.0-7.7 [facility] Comment on above: Order Comment: 109.1 Performed By: #### L 100.0100 ####[facility] [address] [place], [address] Basophils/100 WBC (Bld) 0.5 % Normal 0-1 [facility] Comment on above: Order Comment: 109.1 Performed By: #### L 100.0100 ####[facility] [address] [place], [address] Eosinophils/100 WBC (Bld) 0.3 % Normal 0-5 [facility] Comment on above: Order Comment: 109.1 Performed By: #### L 100.0100 ####[facility] [address] [place], [address] Erythrocyte distribution width (RBC) [Ratio] 12.8 % Normal 11.6-14.6 [facility] Comment on above: Order Comment: 109.1 Performed By: #### L 100.0100 ####[facility] [address] [place], [address] Hematocrit (Bld) [Volume fraction] 40.6 % Normal 40-54 [facility] Comment on above: Order Comment: 109.1 Performed By: #### L 100.0100 ####[facility] [address] [place], [address] Hemoglobin (Bld) [Mass/Vol] 13.1 g/dL Normal 13.0-16.5 [facility] Comment on above: Order Comment: 109.1 Performed By: #### L 100.0100 ####[facility] [address] [place], [address] IG% 0.300 Normal 0.0-0.9 [facility] Comment on above: Order Comment: 109.1 Result Comment: IG% - Immature Granulocytes (promyelocytes, myelocytes andmetamyelocytes) > 1% indicates that a LEFT SHIFT is Present. Performed By: #### L 100.0100 ####[facility] [address] [place], [address] Lymphocytes/100 WBC (Bld) 21.2 % Normal 19-41 [facility] Comment on above: Order Comment: 109.1 Performed By: #### L 100.0100 ####[facility] [address] [place], [address] MCH (RBC) [Entitic mass] 29.8 pg Normal 27.0-32.0 [facility] Comment on above: Order Comment: 109.1 Performed By: #### L 100.0100 ####[facility] [address] [place], [address] MCHC (RBC) [Mass/Vol] 32.3 g/dL Normal 32-36 [facility] Comment on above: Order Comment: 109.1 Performed By: #### L 100.0100 ####[facility] [address] [place], [address] MCV (RBC) [Entitic vol] 92.5 fL Normal 80-94 [facility] Comment on above: Order Comment: 109.1 Performed By: #### L 100.0100 ####[facility] [address] [place], [address] Monocytes/100 WBC (Bld) 7.6 % Normal 0-10 [facility] Comment on above: Order Comment: 109.1 Performed By: #### L 100.0100 ####[facility] [address] [place], [address] Neutrophils/100 WBC (Bld) 70.1 % High 47-70 [facility] Comment on above: Order Comment: 109.1 Performed By: #### L 100.0100 ####[facility] [address] [place], [address] Nucleated RBC (Bld) [#/Vol] 0 10*3/uL Normal 0-5 [facility] Comment on above: Order Comment: 109.1 Performed By: #### L 100.0100 ####[facility] [address] [place], [address] Platelet mean volume (Bld) [Entitic vol] 10.8 fL Normal 6.2-12.0 [facility] Comment on above: Order Comment: 109.1 Performed By: #### L 100.0100 ####[facility] [address] [place], [address] Platelets (Bld) [#/Vol] 221 10*3/uL Normal 150-450 [facility] Comment on above: Order Comment: 109.1 Performed By: #### L 100.0100 ####[facility] [address] [place], [address] RBC (Bld) [#/Vol] 4.39 10*6/uL Low 4.6-6.2 [facility] Comment on above: Order Comment: 109.1 Performed By: #### L 100.0100 ####[facility] [address] [place], [address] RDW SD 43.4 fl Normal 35.1-43.9 [facility] Comment on above: Order Comment: 109.1 Performed By: #### L 100.0100 ####[facility] [address] [place], [address] WBC (Bld) [#/Vol] 9.8 10*3/uL Normal 4.4-11.0 [facility] Comment on above: Order Comment: 109.1 Performed By: #### L 100.0100 ####[facility] [address] [place], [address] CBC W/Diff, Automatedon 10-0 7-2024 Absolute Lymph 2.06 X10 3/uL Normal 0.83-4.51 [facility] Comment on above: Order Comment: 109.1 Performed By: #### L 100.0100 ####[facility] [address] [place], [address] Absolute Neut 4.8 X10 3/uL Normal 2.0-7.7 [facility] Comment on above: Order Comment: 109.1 Performed By: #### L 100.0100 ####[facility] [address] [place], [address] Basophils/100 WBC (Bld) 0.7 % Normal 0-1 [facility] Comment on above: Order Comment: 109.1 Performed By: #### L 100.0100 ####[facility] [address] [place], [address] Eosinophils/100 WBC (Bld) 0.5 % Normal 0-5 [facility] Comment on above: Order Comment: 109.1 Performed By: #### L 100.0100 ####[facility] [address] [place], [address] Erythrocyte distribution width (RBC) [Ratio] 13.2 % Normal 11.6-14.6 [facility] Comment on above: Order Comment: 109.1 Performed By: #### L 100.0100 ####[facility] [address] [place], [address] Hematocrit (Bld) [Volume fraction] 42.7 % Normal 40-54 [facility] Comment on above: Order Comment: 109.1 Performed By: #### L 100.0100 ####[facility] [address] [place], [address] Hemoglobin (Bld) [Mass/Vol] 13.5 g/dL Normal 13.0-16.5 [facility] Comment on above: Order Comment: 109.1 Performed By: #### L 100.0100 ####[facility] [address] [place], [address] IG% 0.400 Normal 0.0-0.9 [facility] Comment on above: Order Comment: 109.1 Result Comment: IG% - Immature Granulocytes (promyelocytes, myelocytes andmetamyelocytes) > 1% indicates that a LEFT SHIFT is Present. Performed By: #### L 100.0100 ####[facility] [address] [place], [address] Lymphocytes/100 WBC (Bld) 26.9 % Normal 19-41 [facility] Comment on above: Order Comment: 109.1 Performed By: #### L 100.0100 ####[facility] [address] [place], [address] MCH (RBC) [Entitic mass] 29.3 pg Normal 27.0-32.0 [facility] Comment on above: Order Comment: 109.1 Performed By: #### L 100.0100 ####[facility] [address] [place], [address] MCHC (RBC) [Mass/Vol] 31.6 g/dL Low 32-36 [facility] Comment on above: Order Comment: 109.1 Performed By: #### L 100.0100 ####[facility] [address] [place], [address] MCV (RBC) [Entitic vol] 92.8 fL Normal 80-94 [facility] Comment on above: Order Comment: 109.1 Performed By: #### L 100.0100 ####[facility] [address] [place], [address] Monocytes/100 WBC (Bld) 9.3 % Normal 0-10 [facility] Comment on above: Order Comment: 109.1 Performed By: #### L 100.0100 ####[facility] [address] [place], [address] Neutrophils/100 WBC (Bld) 62.2 % Normal 47-70 [facility] Comment on above: Order Comment: 109.1 Performed By: #### L 100.0100 ####[facility] [address] [place], [address] Nucleated RBC (Bld) [#/Vol] 0 10*3/uL Normal 0-5 [facility] Comment on above: Order Comment: 109.1 Performed By: #### L 100.0100 ####[facility] [address] [place], [address] Platelet mean volume (Bld) [Entitic vol] 11.2 fL Normal 6.2-12.0 [facility] Comment on above: Order Comment: 109.1 Performed By: #### L 100.0100 ####[facility] [address] [place], [address] Platelets (Bld) [#/Vol] 192 10*3/uL Normal 150-450 [facility] Comment on above: Order Comment: 109.1 Performed By: #### L 100.0100 ####[facility] [address] [place], [address] RBC (Bld) [#/Vol] 4.60 10*6/uL Normal 4.6-6.2 [facility] Comment on above: Order Comment: 109.1 Performed By: #### L 100.0100 ####[facility] [address] [place], [address] RDW SD 44.9 fl High 35.1-43.9 [facility] Comment on above: Order Comment: 109.1 Performed By: #### L 100.0100 ####[facility] [address] [place], [address] WBC (Bld) [#/Vol] 7.7 10*3/uL Normal 4.4-11.0 [facility] Comment on above: Order Comment: 109.1 Performed By: #### L 100.0100 ####[facility] [address] [place], [address] CBC W/Diff, Automatedon 09-3 0-2024 Absolute Lymph 2.12 X10 3/uL Normal 0.83-4.51 [facility] Comment on above: Order Comment: 109.1 Performed By: #### L 100.0100 ####[facility] [address] [place], [address] Absolute Neut 5.2 X10 3/uL Normal 2.0-7.7 [facility] Comment on above: Order Comment: 109.1 Performed By: #### L 100.0100 ####[facility] [address] [place], [address] Basophils/100 WBC (Bld) 0.6 % Normal 0-1 [facility] Comment on above: Order Comment: 109.1 Performed By: #### L 100.0100 ####[facility] [address] [place], [address] Eosinophils/100 WBC (Bld) 0.5 % Normal 0-5 [facility] Comment on above: Order Comment: 109.1 Performed By: #### L 100.0100 ####[facility] [address] [place], [address] Erythrocyte distribution width (RBC) [Ratio] 13.2 % Normal 11.6-14.6 [facility] Comment on above: Order Comment: 109.1 Performed By: #### L 100.0100 ####[facility] [address] [place], [address] Hematocrit (Bld) [Volume fraction] 46.0 % Normal 40-54 [facility] Comment on above: Order Comment: 109.1 Performed By: #### L 100.0100 ####[facility] [address] [place], [address] Hemoglobin (Bld) [Mass/Vol] 14.5 g/dL Normal 13.0-16.5 [facility] Comment on above: Order Comment: 109.1 Performed By: #### L 100.0100 ####[facility] [address] [place], [address] IG% 0.200 Normal 0.0-0.9 [facility] Comment on above: Order Comment: 109.1 Result Comment: IG% - Immature Granulocytes (promyelocytes, myelocytes andmetamyelocytes) > 1% indicates that a LEFT SHIFT is Present. Performed By: #### L 100.0100 ####[facility] [address] [place], [address] Lymphocytes/100 WBC (Bld) 25.9 % Normal 19-41 [facility] Comment on above: Order Comment: 109.1 Performed By: #### L 100.0100 ####[facility] [address] [place], [address] MCH (RBC) [Entitic mass] 29.2 pg Normal 27.0-32.0 [facility] Comment on above: Order Comment: 109.1 Performed By: #### L 100.0100 ####[facility] [address] [place], [address] MCHC (RBC) [Mass/Vol] 31.5 g/dL Low 32-36 [facility] Comment on above: Order Comment: 109.1 Performed By: #### L 100.0100 ####[facility] [address] [place], [address] MCV (RBC) [Entitic vol] 92.7 fL Normal 80-94 [facility] Comment on above: Order Comment: 109.1 Performed By: #### L 100.0100 ####[facility] [address] [place], [address] Monocytes/100 WBC (Bld) 9.0 % Normal 0-10 [facility] Comment on above: Order Comment: 109.1 Performed By: #### L 100.0100 ####[facility] [address] [place], [address] Neutrophils/100 WBC (Bld) 63.8 % Normal 47-70 [facility] Comment on above: Order Comment: 109.1 Performed By: #### L 100.0100 ####[facility] [address] [place], [address] Nucleated RBC (Bld) [#/Vol] 0 10*3/uL Normal 0-5 [facility] Comment on above: Order Comment: 109.1 Performed By: #### L 100.0100 ####[facility] [address] [place], [address] Platelet mean volume (Bld) [Entitic vol] 10.9 fL Normal 6.2-12.0 [facility] Comment on above: Order Comment: 109.1 Performed By: #### L 100.0100 ####[facility] [address] [place], [address] Platelets (Bld) [#/Vol] 192 10*3/uL Normal 150-450 [facility] Comment on above: Order Comment: 109.1 Performed By: #### L 100.0100 ####[facility] [address] [place], [address] RBC (Bld) [#/Vol] 4.96 10*6/uL Normal 4.6-6.2 [facility] Comment on above: Order Comment: 109.1 Performed By: #### L 100.0100 ####[facility] [address] [place], [address] RDW SD 44.6 fl High 35.1-43.9 [facility] Comment on above: Order Comment: 109.1 Performed By: #### L 100.0100 ####[facility] [address] [place], [address] WBC (Bld) [#/Vol] 8.2 10*3/uL Normal 4.4-11.0 [facility] Comment on above: Order Comment: 109.1 Performed By: #### L 100.0100 ####[facility] [address] [place], [address] CBC W/Diff, Automatedon 09-06 03-2023 Absolute Lymph 1.62 X10 3/uL Normal 0.83-4.51 [facility] Comment on above: Order Comment: 109-1 Performed By: #### L 100.0100 ####[facility] [address] [place], [address] Absolute Neut 8.1 X10 3/uL High 2.0-7.7 [facility] Comment on above: Order Comment: 109-1 Performed By: #### L 100.0100 ####[facility] [address] [place], [address] Basophils/100 WBC (Bld) 0.4 % Normal 0-1 [facility] Comment on above: Order Comment: 109-1 Performed By: #### L 100.0100 ####[facility] [address] [place], [address] Eosinophils/100 WBC (Bld) 0.1 % Normal 0-5 [facility] Comment on above: Order Comment: 109-1 Performed By: #### L 100.0100 ####[facility] [address] [place], [address] Erythrocyte distribution width (RBC) [Ratio] 12.9 % Normal 11.6-14.6 [facility] Comment on above: Order Comment: 109-1 Performed By: #### L 100.0100 ####[facility] [address] [place], [address] Hematocrit (Bld) [Volume fraction] 41.9 % Normal 40-54 [facility] Comment on above: Order Comment: 109-1 Performed By: #### L 100.0100 ####[facility] [address] [place], [address] Hemoglobin (Bld) [Mass/Vol] 13.5 g/dL Normal 13.0-16.5 [facility] Comment on above: Order Comment: 109-1 Performed By: #### L 100.0100 ####[facility] [address] [place], [address] IG% 0.400 Normal 0.0-0.9 [facility] Comment on above: Order Comment: 109-1 Result Comment: IG% - Immature Granulocytes (promyelocytes, myelocytes andmetamyelocytes) > 1% indicates that a LEFT SHIFT is Present. Performed By: #### L 100.0100 ####[facility] [address] [place], [address] Lymphocytes/100 WBC (Bld) 15.2 % Low 19-41 [facility] Comment on above: Order Comment: 109-1 Performed By: #### L 100.0100 ####[facility] [address] [place], [address] MCH (RBC) [Entitic mass] 29.3 pg Normal 27.0-32.0 [facility] Comment on above: Order Comment: 109-1 Performed By: #### L 100.0100 ####[facility] [address] [place], [address] MCHC (RBC) [Mass/Vol] 32.2 g/dL Normal 32-36 [facility] Comment on above: Order Comment: 109-1 Performed By: #### L 100.0100 ####[facility] [address] [place], [address] MCV (RBC) [Entitic vol] 90.9 fL Normal 80-94 [facility] Comment on above: Order Comment: 109-1 Performed By: #### L 100.0100 ####[facility] [address] [place], [address] Monocytes/100 WBC (Bld) 7.4 % Normal 0-10 [facility] Comment on above: Order Comment: 109-1 Performed By: #### L 100.0100 ####[facility] [address] [place], [address] Neutrophils/100 WBC (Bld) 76.5 % High 47-70 [facility] Comment on above: Order Comment: 109-1 Performed By: #### L 100.0100 ####[facility] [address] [place], [address] Nucleated RBC (Bld) [#/Vol] 0 10*3/uL Normal 0-5 [facility] Comment on above: Order Comment: 109-1 Performed By: #### L 100.0100 ####[facility] [address] [place], [address] Platelet mean volume (Bld) [Entitic vol] 11.2 fL Normal 6.2-12.0 [facility] Comment on above: Order Comment: 109-1 Performed By: #### L 100.0100 ####[facility] [address] [place], [address] Platelets (Bld) [#/Vol] 220 10*3/uL Normal 150-450 [facility] Comment on above: Order Comment: 109-1 Performed By: #### L 100.0100 ####[facility] [address] [place], [address] RBC (Bld) [#/Vol] 4.61 10*6/uL Normal 4.6-6.2 [facility] Comment on above: Order Comment: 109-1 Performed By: #### L 100.0100 ####[facility] [address] [place], [address] RDW SD 42.1 fl Normal 35.1-43.9 [facility] Comment on above: Order Comment: 109-1 Performed By: #### L 100.0100 ####[facility] [address] [place], [address] WBC (Bld) [#/Vol] 10.6 10*3/uL Normal 4.4-11.0 [facility] Comment on above: Order Comment: 109-1 Performed By: #### L 100.0100 ####[facility] [address] [place], [address] CBC W/Diff, Automatedon -05 06-2023 Absolute Lymph 2.15 X10 3/uL Normal 0.83-4.51 [facility] Comment on above: Order Comment: 109-1 Performed By: #### L 100.0100 ####[facility] [address] [place], [address] Absolute Neut 5.4 X10 3/uL Normal 2.0-7.7 [facility] Comment on above: Order Comment: 109-1 Performed By: #### L 100.0100 ####[facility] [address] [place], [address] Basophils/100 WBC (Bld) 0.7 % Normal 0-1 [facility] Comment on above: Order Comment: 109-1 Performed By: #### L 100.0100 ####[facility] [address] [place], [address] Eosinophils/100 WBC (Bld) 0.7 % Normal 0-5 [facility] Comment on above: Order Comment: 109-1 Performed By: #### L 100.0100 ####[facility] [address] [place], [address] Erythrocyte distribution width (RBC) [Ratio] 13.1 % Normal 11.6-14.6 [facility] Comment on above: Order Comment: 109-1 Performed By: #### L 100.0100 ####[facility] [address] [place], [address] Hematocrit (Bld) [Volume fraction] 44.1 % Normal 40-54 [facility] Comment on above: Order Comment: 109-1 Performed By: #### L 100.0100 ####[facility] [address] [place], [address] Hemoglobin (Bld) [Mass/Vol] 14.2 g/dL Normal 13.0-16.5 [facility] Comment on above: Order Comment: 109-1 Performed By: #### L 100.0100 ####[facility] [address] [place], [address] IG% 0.400 Normal 0.0-0.9 [facility] Comment on above: Order Comment: 109-1 Result Comment: IG% - Immature Granulocytes (promyelocytes, myelocytes andmetamyelocytes) > 1% indicates that a LEFT SHIFT is Present. Performed By: #### L 100.0100 ####[facility] [address] [place], [address] Lymphocytes/100 WBC (Bld) 25.7 % Normal 19-41 [facility] Comment on above: Order Comment: 109-1 Performed By: #### L 100.0100 ####[facility] [address] [place], [address] MCH (RBC) [Entitic mass] 29.5 pg Normal 27.0-32.0 [facility] Comment on above: Order Comment: 109-1 Performed By: #### L 100.0100 ####[facility] [address] [place], [address] MCHC (RBC) [Mass/Vol] 32.2 g/dL Normal 32-36 [facility] Comment on above: Order Comment: 109-1 Performed By: #### L 100.0100 ####[facility] [address] [place], [address] MCV (RBC) [Entitic vol] 91.7 fL Normal 80-94 [facility] Comment on above: Order Comment: 109-1 Performed By: #### L 100.0100 ####[facility] [address] [place], [address] Monocytes/100 WBC (Bld) 7.5 % Normal 0-10 [facility] Comment on above: Order Comment: 109-1 Performed By: #### L 100.0100 ####[facility] [address] [place], [address] Neutrophils/100 WBC (Bld) 65.0 % Normal 47-70 [facility] Comment on above: Order Comment: 109-1 Performed By: #### L 100.0100 ####[facility] [address] [place], [address] Nucleated RBC (Bld) [#/Vol] 0 10*3/uL Normal 0-5 [facility] Comment on above: Order Comment: 109-1 Performed By: #### L 100.0100 ####[facility] [address] [place], [address] Platelet mean volume (Bld) [Entitic vol] 11.1 fL Normal 6.2-12.0 [facility] Comment on above: Order Comment: 109-1 Performed By: #### L 100.0100 ####[facility] [address] [place], [address] Platelets (Bld) [#/Vol] 200 10*3/uL Normal 150-450 [facility] Comment on above: Order Comment: 109-1 Performed By: #### L 100.0100 ####[facility] [address] [place], [address] RBC (Bld) [#/Vol] 4.81 10*6/uL Normal 4.6-6.2 [facility] Comment on above: Order Comment: 109-1 Performed By: #### L 100.0100 ####[facility] [address] [place], [address] RDW SD 44.1 fl High 35.1-43.9 [facility] Comment on above: Order Comment: 109-1 Performed By: #### L 100.0100 ####[facility] [address] [place], [address] WBC (Bld) [#/Vol] 8.4 10*3/uL Normal 4.4-11.0 [facility] Comment on above: Order Comment: 109-1 Performed By: #### L 100.0100 ####[facility] [address] [place], [address] CBC W/Diff, Automatedon 09-0 9-2024 Absolute Lymph 3.20 X10 3/uL Normal 0.83-4.51 [facility] Comment on above: Order Comment: 109-1 Performed By: #### L 100.0100 ####[facility] [address] [place], [address] Absolute Neut 5.5 X10 3/uL Normal 2.0-7.7 [facility] Comment on above: Order Comment: 109-1 Performed By: #### L 100.0100 ####[facility] [address] [place], [address] Basophils/100 WBC (Bld) 0.5 % Normal 0-1 [facility] Comment on above: Order Comment: 109-1 Performed By: #### L 100.0100 ####[facility] [address] [place], [address] Eosinophils/100 WBC (Bld) 0.6 % Normal 0-5 [facility] Comment on above: Order Comment: 109-1 Performed By: #### L 100.0100 ####[facility] [address] [place], [address] Erythrocyte distribution width (RBC) [Ratio] 13.2 % Normal 11.6-14.6 [facility] Comment on above: Order Comment: 109-1 Performed By: #### L 100.0100 ####[facility] [address] [place], [address] Hematocrit (Bld) [Volume fraction] 44.3 % Normal 40-54 [facility] Comment on above: Order Comment: 109-1 Performed By: #### L 100.0100 ####[facility] [address] [place], [address] Hemoglobin (Bld) [Mass/Vol] 14.4 g/dL Normal 13.0-16.5 [facility] Comment on above: Order Comment: 109-1 Performed By: #### L 100.0100 ####[facility] [address] [place], [address] IG% 0.400 Normal 0.0-0.9 [facility] Comment on above: Order Comment: 109-1 Result Comment: IG% - Immature Granulocytes (promyelocytes, myelocytes andmetamyelocytes) > 1% indicates that a LEFT SHIFT is Present. Performed By: #### L 100.0100 ####[facility] [address] [place], [address] Lymphocytes/100 WBC (Bld) 31.4 % Normal 19-41 [facility] Comment on above: Order Comment: 109-1 Performed By: #### L 100.0100 ####[facility] [address] [place], [address] MCH (RBC) [Entitic mass] 29.8 pg Normal 27.0-32.0 [facility] Comment on above: Order Comment: 109-1 Performed By: #### L 100.0100 ####[facility] [address] [place], [address] MCHC (RBC) [Mass/Vol] 32.5 g/dL Normal 32-36 [facility] Comment on above: Order Comment: 109-1 Performed By: #### L 100.0100 ####[facility] [address] [place], [address] MCV (RBC) [Entitic vol] 91.7 fL Normal 80-94 [facility] Comment on above: Order Comment: 109-1 Performed By: #### L 100.0100 ####[facility] [address] [place], [address] Monocytes/100 WBC (Bld) 12.8 % High 0-10 [facility] Comment on above: Order Comment: 109-1 Performed By: #### L 100.0100 ####[facility] [address] [place], [address] Neutrophils/100 WBC (Bld) 54.3 % Normal 47-70 [facility] Comment on above: Order Comment: 109-1 Performed By: #### L 100.0100 ####[facility] [address] [place], [address] Nucleated RBC (Bld) [#/Vol] 0 10*3/uL Normal 0-5 [facility] Comment on above: Order Comment: 109-1 Performed By: #### L 100.0100 ####[facility] [address] [place], [address] Platelet mean volume (Bld) [Entitic vol] 11.9 fL Normal 6.2-12.0 [facility] Comment on above: Order Comment: 109-1 Performed By: #### L 100.0100 ####[facility] [address] [place], [address] Platelets (Bld) [#/Vol] 187 10*3/uL Normal 150-450 [facility] Comment on above: Order Comment: 109-1 Performed By: #### L 100.0100 ####[facility] [address] [place], [address] RBC (Bld) [#/Vol] 4.83 10*6/uL Normal 4.6-6.2 [facility] Comment on above: Order Comment: 109-1 Performed By: #### L 100.0100 ####[facility] [address] [place], [address] RDW SD 44.3 fl High 35.1-43.9 [facility] Comment on above: Order Comment: 109-1 Performed By: #### L 100.0100 ####[facility] [address] [place], [address] WBC (Bld) [#/Vol] 10.2 10*3/uL Normal 4.4-11.0 [facility] Comment on above: Order Comment: 109-1 Performed By: #### L 100.0100 ####[facility] [address] [place], [address] CBC W/Diff, Automatedon 09-0 3-2024 Absolute Lymph 2.57 X10 3/uL Normal 0.83-4.51 [facility] Comment on above: Order Comment: 109-1 Performed By: #### L 100.0100, L500.4100 ####[facility] [address] [place], [address] Absolute Neut 5.9 X10 3/uL Normal 2.0-7.7 [facility] Comment on above: Order Comment: 109-1 Performed By: #### L 100.0100, L500.4100 ####[facility] [address] [place], [address] Basophils/100 WBC (Bld) 0.5 % Normal 0-1 [facility] Comment on above: Order Comment: 109-1 Performed By: #### L 100.0100, L500.4100 ####[facility] [address] [place], [address] Eosinophils/100 WBC (Bld) 0.4 % Normal 0-5 [facility] Comment on above: Order Comment: 109-1 Performed By: #### L 100.0100, L500.4100 ####[facility] [address] [place], [address] Erythrocyte distribution width (RBC) [Ratio] 13.1 % Normal 11.6-14.6 [facility] Comment on above: Order Comment: 109-1 Performed By: #### L 100.0100, L500.4100 ####[facility] [address] [place], [address] Hematocrit (Bld) [Volume fraction] 40.6 % Normal 40-54 [facility] Comment on above: Order Comment: 109-1 Performed By: #### L 100.0100, L500.4100 ####[facility] [address] [place], [address] Hemoglobin (Bld) [Mass/Vol] 13.3 g/dL Normal 13.0-16.5 [facility] Comment on above: Order Comment: 109-1 Performed By: #### L 100.0100, L500.4100 ####[facility] [address] [place], [address] IG% 0.300 Normal 0.0-0.9 [facility] Comment on above: Order Comment: 109-1 Result Comment: IG% - Immature Granulocytes (promyelocytes, myelocytes andmetamyelocytes) > 1% indicates that a LEFT SHIFT is Present. Performed By: #### L 100.0100, L500.4100 ####[facility] [address] [place], [address] Lymphocytes/100 WBC (Bld) 27.0 % Normal 19-41 [facility] Comment on above: Order Comment: 109-1 Performed By: #### L 100.0100, L500.4100 ####[facility] [address] [place], [address] MCH (RBC) [Entitic mass] 30.2 pg Normal 27.0-32.0 [facility] Comment on above: Order Comment: 109-1 Performed By: #### L 100.0100, L500.4100 ####[facility] [address] [place], [address] MCHC (RBC) [Mass/Vol] 32.8 g/dL Normal 32-36 [facility] Comment on above: Order Comment: 109-1 Performed By: #### L 100.0100, L500.4100 ####[facility] [address] [place], [address] MCV (RBC) [Entitic vol] 92.3 fL Normal 80-94 [facility] Comment on above: Order Comment: 109-1 Performed By: #### L 100.0100, L500.4100 ####[facility] [address] [place], [address] Monocytes/100 WBC (Bld) 9.7 % Normal 0-10 [facility] Comment on above: Order Comment: 109-1 Performed By: #### L 100.0100, L500.4100 ####[facility] [address] [place], [address] Neutrophils/100 WBC (Bld) 62.1 % Normal 47-70 [facility] Comment on above: Order Comment: 109-1 Performed By: #### L 100.0100, L500.4100 ####[facility] [address] [place], [address] Nucleated RBC (Bld) [#/Vol] 0 10*3/uL Normal 0-5 [facility] Comment on above: Order Comment: 109-1 Performed By: #### L 100.0100, L500.4100 ####[facility] [address] [place], [address] Platelet mean volume (Bld) [Entitic vol] 12.1 fL High 6.2-12.0 [facility] Comment on above: Order Comment: 109-1 Performed By: #### L 100.0100, L500.4100 ####[facility] [address] [place], [address] Platelets (Bld) [#/Vol] 172 10*3/uL Normal 150-450 [facility] Comment on above: Order Comment: 109-1 Performed By: #### L 100.0100, L500.4100 ####[facility] [address] [place], [address] RBC (Bld) [#/Vol] 4.40 10*6/uL Low 4.6-6.2 [facility] Comment on above: Order Comment: 109-1 Performed By: #### L 100.0100, L500.4100 ####[facility] [address] [place], [address] RDW SD 44.0 fl High 35.1-43.9 [facility] Comment on above: Order Comment: 109-1 Performed By: #### L 100.0100, L500.4100 ####[facility] [address] [place], [address] WBC (Bld) [#/Vol] 9.5 10*3/uL Normal 4.4-11.0 [facility] Comment on above: Order Comment: 109-1 Performed By: #### L 100.0100, L500.4100 ####[facility] [address] [place], [address] Lipid Profileon 01-02-2024 Cholesterol [Mass/Vol] 115 mg/dL Normal 200 [facility] Comment on above: Order Comment: 109-1 Result Comment: <200 mg/dL Desirable 200-240 mg/dL Borderline >240 mg/dL High Risk Performed By: #### L 100.0100, L500.4100 ####[facility] [address] [place], [address] Cholesterol in HDL [Mass/Vol] 24 mg/dL Low [facility] Comment on above: Order Comment: 109 Result Comment: The drugs N-Acetylcysteine and Metamizole may falselydepress this assay. Reference Range HDL <40 mg/dL Low HDL Cholesterol HDL >or= 60 mg/dL High HDL Cholesterol Performed By: #### L 100.0100, L500.4100 ####[facility] [address] [place], [address] Cholesterol in LDL [Mass/Vol] 37 mg/dL Normal 0-130 [facility] Comment on above: Order Comment: Performed By: #### L 100.0100, L500.4100 ####[facility] [address] [place], [address] Cholesterol in VLDL [Mass/Vol] 54 mg/dL High 5-40 [facility] Comment on above: Order Comment: - Performed By: #### L 100.0100, L500.4100 ####[facility] [address] [place], [address] Triglyceride [Mass/Vol] 271 mg/dL High [facility] Comment on above: Order Comment: 1091 Result Comment: The drugs N-Acetylcysteine and Metamizole may falselydepress this assay.Serum Triglycerides Reference Interval Normal <150 mg/dL Borderline high 150 - 199 mg/dL High 200 - 499 mg/dL Very High > or = 500 mg/dL Performed By: #### L 100.0100, L500.4100 ####[facility] [address] [place], [address] CBC W/Diff, Automatedon 08-2 Absolute Lymph 2.51 X10 3/uL Normal 0.83-4.51 [facility] Comment on above: Order Comment: 109.1 Performed By: #### L 100.0100 ####[facility] [address] [place], [address] Absolute Neut 4.1 X10 3/uL Normal 2.0-7.7 [facility] Comment on above: Order Comment: 109.1 Performed By: #### L 100.0100 ####[facility] [address] [place], [address] Basophils/100 WBC (Bld) 0.5 % Normal 0-1 [facility] Comment on above: Order Comment: 109.1 Performed By: #### L 100.0100 ####[facility] [address] [place], [address] Eosinophils/100 WBC (Bld) 0.8 % Normal 0-5 [facility] Comment on above: Order Comment: 109.1 Performed By: #### L 100.0100 ####[facility] [address] [place], [address] Erythrocyte distribution width (RBC) [Ratio] 13.1 % Normal 11.6-14.6 [facility] Comment on above: Order Comment: 109.1 Performed By: #### L 100.0100 ####[facility] [address] [place], [address] Hematocrit (Bld) [Volume fraction] 40.5 % Normal 40-54 [facility] Comment on above: Order Comment: 109.1 Performed By: #### L 100.0100 ####[facility] [address] [place], [address] Hemoglobin (Bld) [Mass/Vol] 12.9 g/dL Low 13.0-16.5 [facility] Comment on above: Order Comment: 109.1 Performed By: #### L 100.0100 ####[facility] [address] [place], [address] IG% 0.400 Normal 0.0-0.9 [facility] Comment on above: Order Comment: 109.1 Result Comment: IG% - Immature Granulocytes (promyelocytes, myelocytes andmetamyelocytes) > 1% indicates that a LEFT SHIFT is Present. Performed By: #### L 100.0100 ####[facility] [address] [place], [address] Lymphocytes/100 WBC (Bld) 33.5 % Normal 19-41 [facility] Comment on above: Order Comment: 109.1 Performed By: #### L 100.0100 ####[facility] [address] [place], [address] MCH (RBC) [Entitic mass] 29.3 pg Normal 27.0-32.0 [facility] Comment on above: Order Comment: 109.1 Performed By: #### L 100.0100 ####[facility] [address] [place], [address] MCHC (RBC) [Mass/Vol] 31.9 g/dL Low 32-36 [facility] Comment on above: Order Comment: 109.1 Performed By: #### L 100.0100 ####[facility] [address] [place], [address] MCV (RBC) [Entitic vol] 92.0 fL Normal 80-94 [facility] Comment on above: Order Comment: 109.1 Performed By: #### L 100.0100 ####[facility] [address] [place], [address] Monocytes/100 WBC (Bld) 10.7 % High 0-10 [facility] Comment on above: Order Comment: 109.1 Performed By: #### L 100.0100 ####[facility] [address] [place], [address] Neutrophils/100 WBC (Bld) 54.1 % Normal 47-70 [facility] Comment on above: Order Comment: 109.1 Performed By: #### L 100.0100 ####[facility] [address] [place], [address] Nucleated RBC (Bld) [#/Vol] 0 10*3/uL Normal 0-5 [facility] Comment on above: Order Comment: 109.1 Performed By: #### L 100.0100 ####[facility] [address] [place], [address] Platelet mean volume (Bld) [Entitic vol] 10.8 fL Normal 6.2-12.0 [facility] Comment on above: Order Comment: 109.1 Performed By: #### L 100.0100 ####[facility] [address] [place], [address] Platelets (Bld) [#/Vol] 193 10*3/uL Normal 150-450 [facility] Comment on above: Order Comment: 109.1 Performed By: #### L 100.0100 ####[facility] [address] [place], [address] RBC (Bld) [#/Vol] 4.40 10*6/uL Low 4.6-6.2 [facility] Comment on above: Order Comment: 109.1 Performed By: #### L 100.0100 ####[facility] [address] [place], [address] RDW SD 44.0 fl High 35.1-43.9 [facility] Comment on above: Order Comment: 109.1 Performed By: #### L 100.0100 ####[facility] [address] [place], [address] WBC (Bld) [#/Vol] 7.5 10*3/uL Normal 4.4-11.0 [facility] Comment on above: Order Comment: 109.1 Performed By: #### L 100.0100 ####[facility] [address] [place], [address] CBC W/Diff, Automatedon 11-29 Absolute Lymph 2.38 X10 3/uL Normal 0.83-4.51 [facility] Comment on above: Order Comment: 109-1 Performed By: #### L 100.0100 ####[facility] [address] [place], [address] Absolute Neut 5.2 X10 3/uL Normal 2.0-7.7 [facility] Comment on above: Order Comment: 109-1 Performed By: #### L 100.0100 ####[facility] [address] [place], [address] Basophils/100 WBC (Bld) 0.4 % Normal 0-1 [facility] Comment on above: Order Comment: 109-1 Performed By: #### L 100.0100 ####[facility] [address] [place], [address] Eosinophils/100 WBC (Bld) 0.7 % Normal 0-5 [facility] Comment on above: Order Comment: 109-1 Performed By: #### L 100.0100 ####[facility] [address] [place], [address] Erythrocyte distribution width (RBC) [Ratio] 12.8 % Normal 11.6-14.6 [facility] Comment on above: Order Comment: 109-1 Performed By: #### L 100.0100 ####[facility] [address] [place], [address] Hematocrit (Bld) [Volume fraction] 48.0 % Normal 40-54 [facility] Comment on above: Order Comment: 109-1 Performed By: #### L 100.0100 ####[facility] [address] [place], [address] Hemoglobin (Bld) [Mass/Vol] 15.3 g/dL Normal 13.0-16.5 [facility] Comment on above: Order Comment: 109-1 Performed By: #### L 100.0100 ####[facility] [address] [place], [address] IG% 0.200 Normal 0.0-0.9 [facility] Comment on above: Order Comment: 109-1 Result Comment: IG% - Immature Granulocytes (promyelocytes, myelocytes andmetamyelocytes) > 1% indicates that a LEFT SHIFT is Present. Performed By: #### L 100.0100 ####[facility] [address] [place], [address] Lymphocytes/100 WBC (Bld) 28.5 % Normal 19-41 [facility] Comment on above: Order Comment: 109-1 Performed By: #### L 100.0100 ####[facility] [address] [place], [address] MCH (RBC) [Entitic mass] 29.4 pg Normal 27.0-32.0 [facility] Comment on above: Order Comment: 109-1 Performed By: #### L 100.0100 ####[facility] [address] [place], [address] MCHC (RBC) [Mass/Vol] 31.9 g/dL Low 32-36 [facility] Comment on above: Order Comment: 109-1 Performed By: #### L 100.0100 ####[facility] [address] [place], [address] MCV (RBC) [Entitic vol] 92.3 fL Normal 80-94 [facility] [facility] Comment on above: Order Comment: 109-1 Performed By: #### L 100.0100 ####[facility] [address] [place], [address] Monocytes/100 WBC (Bld) 8.4 % Normal 0-10 [facility] Comment on above: Order Comment: 109-1 Performed By: #### L 100.0100 ####[facility] [address] [place], [address] Neutrophils/100 WBC (Bld) 61.8 % Normal 47-70 [facility] Comment on above: Order Comment: 109-1 Performed By: #### L 100.0100 ####[facility] [address] [place], [address] Nucleated RBC (Bld) [#/Vol] 0 10*3/uL Normal 0-5 [facility] Comment on above: Order Comment: 109-1 Performed By: #### L 100.0100 ####[facility] [address] [place], [address] Platelet mean volume (Bld) [Entitic vol] 11.6 fL Normal 6.2-12.0 [facility] Comment on above: Order Comment: 109-1 Performed By: #### L 100.0100 ####[facility] [address] [place], [address] Platelets (Bld) [#/Vol] 183 10*3/uL Normal 150-450 [facility] Comment on above: Order Comment: 109-1 Performed By: #### L 100.0100 ####[facility] [address] [place], [address] RBC (Bld) [#/Vol] 5.20 10*6/uL Normal 4.6-6.2 [facility] Comment on above: Order Comment: 109-1 Performed By: #### L 100.0100 ####[facility] [address] [place], [address] RDW SD 43.5 fl Normal 35.1-43.9 [facility] Comment on above: Order Comment: 109-1 Performed By: #### L 100.0100 ####[facility] [address] [place], [address] WBC (Bld) [#/Vol] 8.3 10*3/uL Normal 4.4-11.0 [facility] Comment on above: Order Comment: 109-1 Performed By: #### L 100.0100 ####[facility] [address] [place], [address] CBC W/Diff, Automatedon 11-29 Absolute Lymph 2.03 X10 3/uL Normal 0.83-4.51 [facility] Comment on above: Order Comment: 109-1 Performed By: #### L 100.0100 ####[facility] [address] [place], [address] Absolute Neut 5.7 X10 3/uL Normal 2.0-7.7 [facility] Comment on above: Order Comment: 109-1 Performed By: #### L 100.0100 ####[facility] [address] [place], [address] Basophils/100 WBC (Bld) 0.6 % Normal 0-1 [facility] Comment on above: Order Comment: 109-1 Performed By: #### L 100.0100 ####[facility] [address] [place], [address] Eosinophils/100 WBC (Bld) 0.6 % Normal 0-5 [facility] Comment on above: Order Comment: 109-1 Performed By: #### L 100.0100 ####[facility] [address] [place], [address] Erythrocyte distribution width (RBC) [Ratio] 12.8 % Normal 11.6-14.6 [facility] Comment on above: Order Comment: 109-1 Performed By: #### L 100.0100 ####[facility] [address] [place], [address] Hematocrit (Bld) [Volume fraction] 39.9 % Low 40-54 [facility] Comment on above: Order Comment: 109-1 Performed By: #### L 100.0100 ####[facility] [address] [place], [address] Hemoglobin (Bld) [Mass/Vol] 12.8 g/dL Low 13.0-16.5 [facility] Comment on above: Order Comment: 109-1 Performed By: #### L 100.0100 ####[facility] [address] [place], [address] IG% 0.400 Normal 0.0-0.9 [facility] Comment on above: Order Comment: 109-1 Result Comment: IG% - Immature Granulocytes (promyelocytes, myelocytes andmetamyelocytes) > 1% indicates that a LEFT SHIFT is Present. Performed By: #### L 100.0100 ####[facility] [address] [place], [address] Lymphocytes/100 WBC (Bld) 23.9 % Normal 19-41 [facility] Comment on above: Order Comment: 109-1 Performed By: #### L 100.0100 ####[facility] [address] [place], [address] MCH (RBC) [Entitic mass] 29.4 pg Normal 27.0-32.0 [facility] Comment on above: Order Comment: 109-1 Performed By: #### L 100.0100 ####[facility] [address] [place], [address] MCHC (RBC) [Mass/Vol] 32.1 g/dL Normal 32-36 [facility] Comment on above: Order Comment: 109-1 Performed By: #### L 100.0100 ####[facility] [address] [place], [address] MCV (RBC) [Entitic vol] 91.7 fL Normal 80-94 [facility] Comment on above: Order Comment: 109-1 Performed By: #### L 100.0100 ####[facility] [address] [place], [address] Monocytes/100 WBC (Bld) 7.8 % Normal 0-10 [facility] Comment on above: Order Comment: 109-1 Performed By: #### L 100.0100 ####[facility] [address] [place], [address] Neutrophils/100 WBC (Bld) 66.7 % Normal 47-70 [facility] Comment on above: Order Comment: 109-1 Performed By: #### L 100.0100 ####[facility] [address] [place], [address] Nucleated RBC (Bld) [#/Vol] 0 10*3/uL Normal 0-5 [facility] Comment on above: Order Comment: 109-1 Performed By: #### L 100.0100 ####[facility] [address] [place], [address] Platelet mean volume (Bld) [Entitic vol] 11.1 fL Normal 6.2-12.0 [facility] Comment on above: Order Comment: 109-1 Performed By: #### L 100.0100 ####[facility] [address] [place], [address] Platelets (Bld) [#/Vol] 204 10*3/uL Normal 150-450 [facility] Comment on above: Order Comment: 109-1 Performed By: #### L 100.0100 ####[facility] [address] [place], [address] RBC (Bld) [#/Vol] 4.35 10*6/uL Low 4.6-6.2 [facility] Comment on above: Order Comment: 109-1 Performed By: #### L 100.0100 ####[facility] [address] [place], [address] RDW SD 43.2 fl Normal 35.1-43.9 [facility] Comment on above: Order Comment: 109-1 Performed By: #### L 100.0100 ####[facility] [address] [place], [address] WBC (Bld) [#/Vol] 8.5 10*3/uL Normal 4.4-11.0 [facility] Comment on above: Order Comment: 109-1 Performed By: #### L 100.0100 ####[facility] [address] [place], [address] CBC-Complete Blood Cnt No Di ffon 12-04-2023 Erythrocyte distribution width (RBC) [Ratio] 12.8 % Normal 11.6-14.6 [facility] Comment on above: Order Comment: 109.1 Performed By: #### L 100.0500 ####[facility] [address] [place], [address] Hematocrit (Bld) [Volume fraction] 41.0 % Normal 40-54 [facility] Comment on above: Order Comment: 109.1 Performed By: #### L 100.0500 ####[facility] [address] [place], [address] Hemoglobin (Bld) [Mass/Vol] 13.4 g/dL Normal 13.0-16.5 [facility] Comment on above: Order Comment: 109.1 Performed By: #### L 100.0500 ####[facility] [address] [place], [address] MCH (RBC) [Entitic mass] 30.0 pg Normal 27.0-32.0 [facility] Comment on above: Order Comment: 109.1 Performed By: #### L 100.0500 ####[facility] [address] [place], [address] MCHC (RBC) [Mass/Vol] 32.7 g/dL Normal 32-36 [facility] Comment on above: Order Comment: 109.1 Performed By: #### L 100.0500 ####[facility] [address] [place], [address] MCV (RBC) [Entitic vol] 91.7 fL Normal 80-94 [facility] Comment on above: Order Comment: 109.1 Performed By: #### L 100.0500 ####[facility] [address] [place], [address] Platelet mean volume (Bld) [Entitic vol] 10.8 fL Normal 6.2-12.0 [facility] Comment on above: Order Comment: 109.1 Performed By: #### L 100.0500 ####[facility] [address] [place], [address] Platelets (Bld) [#/Vol] 219 10*3/uL Normal 150-450 [facility] Comment on above: Order Comment: 109.1 Performed By: #### L 100.0500 ####[facility] [address] [place], [address] RBC (Bld) [#/Vol] 4.47 10*6/uL Low 4.6-6.2 [facility] Comment on above: Order Comment: 109.1 Performed By: #### L 100.0500 ####[facility] [address] [place], [address] RDW SD 43.0 fl Normal 35.1-43.9 [facility] Comment on above: Order Comment: 109.1 Performed By: #### L 100.0500 ####[facility] [address] [place], [address] WBC (Bld) [#/Vol] 7.6 10*3/uL Normal 4.4-11.0 [facility] Comment on above: Order Comment: 109.1 Performed By: #### L 100.0500 ####[facility] [address] [place], [address] CBC W/Diff, Automatedon 07-2 Absolute Lymph 1.72 X10 3/uL Normal 0.83-4.51 [facility] Comment on above: Order Comment: 109.1 Performed By: #### L 100.0100 ####[facility] [address] [place], [address] Absolute Neut 4.3 X10 3/uL Normal 2.0-7.7 [facility] Comment on above: Order Comment: 109.1 Performed By: #### L 100.0100 ####[facility] [address] [place], [address] Basophils/100 WBC (Bld) 0.4 % Normal 0-1 [facility] Comment on above: Order Comment: 109.1 Performed By: #### L 100.0100 ####[facility] [address] [place], [address] Eosinophils/100 WBC (Bld) 0.6 % Normal 0-5 [facility] Comment on above: Order Comment: 109.1 Performed By: #### L 100.0100 ####[facility] [address] [place], [address] Erythrocyte distribution width (RBC) [Ratio] 13.0 % Normal 11.6-14.6 [facility] Comment on above: Order Comment: 109.1 Performed By: #### L 100.0100 ####[facility] [address] [place], [address] Hematocrit (Bld) [Volume fraction] 40.8 % Normal 40-54 [facility] Comment on above: Order Comment: 109.1 Performed By: #### L 100.0100 ####[facility] [address] [place], [address] Hemoglobin (Bld) [Mass/Vol] 13.2 g/dL Normal 13.0-16.5 [facility] Comment on above: Order Comment: 109.1 Performed By: #### L 100.0100 ####[facility] [address] [place], [address] IG% 0.300 Normal 0.0-0.9 [facility] Comment on above: Order Comment: 109.1 Result Comment: IG% - Immature Granulocytes (promyelocytes, myelocytes andmetamyelocytes) > 1% indicates that a LEFT SHIFT is Present. Performed By: #### L 100.0100 ####[facility] [address] [place], [address] Lymphocytes/100 WBC (Bld) 25.8 % Normal 19-41 [facility] Comment on above: Order Comment: 109.1 Performed By: #### L 100.0100 ####[facility] [address] [place], [address] MCH (RBC) [Entitic mass] 29.7 pg Normal 27.0-32.0 [facility] Comment on above: Order Comment: 109.1 Performed By: #### L 100.0100 ####[facility] [address] [place], [address] MCHC (RBC) [Mass/Vol] 32.4 g/dL Normal 32-36 [facility] Comment on above: Order Comment: 109.1 Performed By: #### L 100.0100 ####[facility] [address] [place], [address] MCV (RBC) [Entitic vol] 91.7 fL Normal 80-94 [facility] Comment on above: Order Comment: 109.1 Performed By: #### L 100.0100 ####[facility] [address] [place], [address] Monocytes/100 WBC (Bld) 9.0 % Normal 0-10 [facility] Comment on above: Order Comment: 109.1 Performed By: #### L 100.0100 ####[facility] [address] [place], [address] Neutrophils/100 WBC (Bld) 63.9 % Normal 47-70 [facility] Comment on above: Order Comment: 109.1 Performed By: #### L 100.0100 ####[facility] [address] [place], [address] Nucleated RBC (Bld) [#/Vol] 0 10*3/uL Normal 0-5 [facility] Comment on above: Order Comment: 109.1 Performed By: #### L 100.0100 ####[facility] [address] [place], [address] Platelet mean volume (Bld) [Entitic vol] 11.0 fL Normal 6.2-12.0 [facility] Comment on above: Order Comment: 109.1 Performed By: #### L 100.0100 ####[facility] [address] [place], [address] Platelets (Bld) [#/Vol] 196 10*3/uL Normal 150-450 [facility] Comment on above: Order Comment: 109.1 Performed By: #### L 100.0100 ####[facility] [address] [place], [address] RBC (Bld) [#/Vol] 4.45 10*6/uL Low 4.6-6.2 [facility] Comment on above: Order Comment: 109.1 Performed By: #### L 100.0100 ####[facility] [address] [place], [address] RDW SD 43.5 fl Normal 35.1-43.9 [facility] Comment on above: Order Comment: 109.1 Performed By: #### L 100.0100 ####[facility] [address] [place], [address] WBC (Bld) [#/Vol] 6.7 10*3/uL Normal 4.4-11.0 [facility] Comment on above: Order Comment: 109.1 Performed By: #### L 100.0100 ####[facility] [address] [place], [address] Progress Noteon 11-22-2023 Progress Note Speech-Language Pathology SPEECH LANGUAGE PATHOLOGY [facility] Modified Barium Swallow [...] despite effort. 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 Frequency: Per treating PHARMACEUTICAL DEVELOPMENT TECHNICIAN Barriers: large osteophytes, bridging with anterior projection [...] Prior MBSS?: No, unable to locate in [facility] Current Diet: Puree diet with ?liquid (no information from [place]) Textures tested: - thin liquid, (cup edge) - mildly thick liquid, (cup edge) - puree, (teaspoon) Patient position: lateral Past Medical History: Past Medical History: Diagnosis Date TREVRE (acute kidney injury) ([facility]) ([facility]) Alcohol abuse 07/08/2018 Anxiety C1 spinal cord injury ([facility]) ([facility]) Depression Fall 06/2018 Schizophrenia ([facility]) Past Surgical History: Past Surgical History: Procedure Laterality Date CERVICAL FUSION 07/09/2014 C2-6 cervical fusion GASTROSTOMY TUBE PLACEMENT 07/13/2018 TRACHEOSTOMY 07/13/2018 Admission Diagnosis: Patient Active Problem List Diagnosis Date Noted Respiratory syncytial virus (RSV) 03/22/2021 Hypoxia 03/19/2021 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) ([facility]) 08/16/2018 Chronic latent schizophrenia ([facility]) 08/15/2018 Prolonged Q-T interval on ECG 08/15/2018 Abdominal wall abscess 08/15/2018 Central cord syndrome ([facility]/HCC) ([facility]) 08/15/2018 Respiratory failure after trauma ([facility]) 08/15/2018 Pressure ulcer of sacral region, stage 2 ([facility]) 08/09/2018 Urinary retention 07/28/2018 Acute respiratory failure with hypoxia ([facility]) 07/26/2018 Mild bibasilar atelectasis 07/26/2018 Hospital-acquired pneumonia 07/26/2018 Bilateral pleural effusion 07/26/2018 Ileus (CMS/HCC) ([facility]) 07/23/2018 TREVER (acute kidney injury) ([facility]) 07/23/2018 Hypokalemia 07/21/2018 Vertebral artery occlusion, bilateral 07/11/2018 Vitamin D insufficiency 07/10/2018 Alcohol abuse 07/08/2018 Closed wedge compression fracture of first thoracic vertebra ([facility]) 07/08/2018 Traumatic nondisp spondylolisthesis of C3 vertebra with closed fx, initial encounter ([facility]) 07/08/2018 Closed fracture dislocation of cervical spine ([facility]) 07/08/2018 Pain: Pt denies any current pain. Reason for current admission: Pt with h/o of PEG and trach from 2019. Pt is currently decannulated. H/o Supervisor Metalizing cervical fusion C2-C6. Noted very large connective [...] posterior spill (more content not included)... Normal [facility] RF videography Hypopharynx a nd Esophagus Views for swallowing function W speech and W barium contrast Rosalino 11-22-2023 Abnormal findings as described above. Please refer to the speech pathologist 's report for additional details and recommendations. Report Dictated on Electronically Signed By: Nir Cancino MD Electronically Signed Date/Time: 11/22/2023 1:57 PM T [facility] Patient Name: KATHYA HOOPER : 1955 Exam Date/Time: 11/22/2023 12:53 Procedure: FL MODIFIED BARIUM WITH VIDEO AND SPEECH Ordering Provider: BURGSO PETER Reason For Exam: r13.12, r63.3 MODIFIED [...] not visualized in this exam for evaluation. [facility] Nir Cancino MD - 11/22/2023 Patient [...] PM EDT [facility] Radiology Study observation (narrative) Ericka He alth RF videography Hypopharynx a nd Esophagus Views for swallowing function W speech and W barium contrast POOrdered By: Nir Cancino on 11-22-2023 [facility] Work Phone: CBC W/Diff, Automatedon 10-30 Absolute Lymph 2.24 X10 3/uL Normal 0.83-4.51 [facility] Comment on above: Order Comment: 109-1 Performed By: #### L 100.0100 ####[facility] [address] [place], [address] Absolute Neut 5.7 X10 3/uL Normal 2.0-7.7 [facility] Comment on above: Order Comment: 109-1 Performed By: #### L 100.0100 ####[facility] [address] [place], [address] Basophils/100 WBC (Bld) 0.6 % Normal 0-1 [facility] Comment on above: Order Comment: 109-1 Performed By: #### L 100.0100 ####[facility] [address] [place], [address] Eosinophils/100 WBC (Bld) 0.5 % Normal 0-5 [facility] Comment on above: Order Comment: 109-1 Performed By: #### L 100.0100 ####[facility] [address] [place], [address] Erythrocyte distribution width (RBC) [Ratio] 13.1 % Normal 11.6-14.6 [facility] Comment on above: Order Comment: 109-1 Performed By: #### L 100.0100 ####[facility] [address] [place], [address] Hematocrit (Bld) [Volume fraction] 41.5 % Normal 40-54 [facility] Comment on above: Order Comment: 109-1 Performed By: #### L 100.0100 ####[facility] [address] [place], [address] Hemoglobin (Bld) [Mass/Vol] 13.6 g/dL Normal 13.0-16.5 [facility] Comment on above: Order Comment: 109-1 Performed By: #### L 100.0100 ####[facility] [address] [place], [address] IG% 0.200 Normal 0.0-0.9 [facility] Comment on above: Order Comment: 109-1 Result Comment: IG% - Immature Granulocytes (promyelocytes, myelocytes andmetamyelocytes) > 1% indicates that a LEFT SHIFT is Present. Performed By: #### L 100.0100 ####[facility] [address] [place], [address] Lymphocytes/100 WBC (Bld) 25.5 % Normal 19-41 [facility] Comment on above: Order Comment: 109-1 Performed By: #### L 100.0100 ####[facility] [address] [place], [address] MCH (RBC) [Entitic mass] 30.0 pg Normal 27.0-32.0 [facility] Comment on above: Order Comment: 109-1 Performed By: #### L 100.0100 ####[facility] [address] [place], [address] MCHC (RBC) [Mass/Vol] 32.8 g/dL Normal 32-36 [facility] Comment on above: Order Comment: 109-1 Performed By: #### L 100.0100 ####[facility] [address] [place], [address] MCV (RBC) [Entitic vol] 91.4 fL Normal 80-94 [facility] Comment on above: Order Comment: 109-1 Performed By: #### L 100.0100 ####[facility] [address] [place], [address] Monocytes/100 WBC (Bld) 8.0 % Normal 0-10 [facility] Comment on above: Order Comment: 109-1 Performed By: #### L 100.0100 ####[facility] [address] [place], [address] Neutrophils/100 WBC (Bld) 65.2 % Normal 47-70 [facility] Comment on above: Order Comment: 109-1 Performed By: #### L 100.0100 ####[facility] [address] [place], [address] Nucleated RBC (Bld) [#/Vol] 0 10*3/uL Normal 0-5 [facility] Comment on above: Order Comment: 109-1 Performed By: #### L 100.0100 ####[facility] [address] [place], [address] Platelet mean volume (Bld) [Entitic vol] 11.5 fL Normal 6.2-12.0 [facility] Comment on above: Order Comment: 109-1 Performed By: #### L 100.0100 ####[facility] [address] [place], [address] Platelets (Bld) [#/Vol] 190 10*3/uL Normal 150-450 [facility] Comment on above: Order Comment: 109-1 Performed By: #### L 100.0100 ####[facility] [address] [place], [address] RBC (Bld) [#/Vol] 4.54 10*6/uL Low 4.6-6.2 [facility] Comment on above: Order Comment: 109-1 Performed By: #### L 100.0100 ####[facility] [address] [place], [address] RDW SD 43.3 fl Normal 35.1-43.9 [facility] Comment on above: Order Comment: 109-1 Performed By: #### L 100.0100 ####[facility] [address] [place], [place], [address] WBC (Bld) [#/Vol] 8.8 10*3/uL Normal 4.4-11.0 [facility] Comment on above: Order Comment: 109-1 Performed By: #### L 100.0100 ####[facility] [address] [place], [place], [address] CBC W Auto Differential pane l (Bld)on 10-02-2023 Basophils (Bld) [#/Vol] 0.0 10*3/uL 0.0 - 0.2 10*3/uL [facility] Basophils/100 WBC (Bld) 0.3 % 0.0 - 2.0 % [facility] Eosinophils (Bld) [#/Vol] 0.0 10*3/uL 0.0 - 0.5 10*3/uL [facility] Eosinophils/100 WBC (Bld) 0.0 % 0.0 - 6.0 % [facility] Erythrocyte distribution width (RBC) [Ratio] 13.0 % 11.5 - 15.0 % [facility] Hematocrit (Bld) [Volume fraction] 37.8 % Low 40.0 - 52.0 % [facility] Hemoglobin (Bld) [Mass/Vol] 13.0 g/dL 13.0 - 18.0 g/dL [facility] Immature granulocytes (Bld) [#/Vol] 0.1 10*3/uL High NINF - 0.1 10*3/uL [facility] Immature granulocytes/100 WBC (Bld) 0.5 % 0.0 - 2.0 % [facility] Interpretation and review of laboratory results Abnormal [facility] Lymphocytes (Bld) [#/Vol] 0.9 10*3/uL Low 1.0 - 4.3 10*3/uL [facility] Lymphocytes/100 WBC (Bld) 8.4 % Low 15.0 - 45.0 % [facility] MCH (RBC) [Entitic mass] 30.3 pg 26.0 - 34.0 pg [facility] MCHC (RBC) [Mass/Vol] 34.4 % 30.5 - 36.0 % [facility] MCV (RBC) [Entitic vol] 88.1 fL 77.0 - 99.0 fL [facility] Monocytes (Bld) [#/Vol] 0.9 10*3/uL 0.0 - 0.9 10*3/uL [facility] Monocytes/100 WBC (Bld) 8.2 % 5.0 - 13.0 % [facility] Neutrophils (Bld) [#/Vol] 8.9 10*3/uL High 1.8 - 7.5 10*3/uL [facility] Neutrophils/100 WBC (Bld) 82.6 % High 38.0 - 82.0 % [facility] Nucleated RBC/100 WBC (Bld) [Ratio] 0.0 % [facility] Platelet mean volume (Bld) [Entitic vol] 10.7 fL 9.0 - 12.7 fL [facility] Platelets (Bld) [#/Vol] 148 10*3/uL 140 - 440 10*3/uL [facility] RBC (Bld) [#/Vol] 4.29 10*6/uL Low 4.40 - 5.9 0 10*6/uL [facility] WBC (Bld) [#/Vol] 10.7 10*3/uL 3.6 - 10.7 10*3/uL [facility] CBC WITH AUTO DIFFERENTIALon 10-02-2023 Basophils (Bld) [#/Vol] 0.0 10*3/uL Normal 0.0-0.2 [facility] Comment on above: Performed By: #### L [id number] #### Adjustment Examiner: CYNDI LILLY ([id number]) [facility] ([facility] [address] Basophils/100 WBC (Bld) 0.3 % Normal 0.0-2.0 [facility] Comment on above: Performed By: #### L [id number] #### Adjustment Examiner: CYNDI LILLY ([id number]) [facility] (SBHLAB) [address] Eosinophils (Bld) [#/Vol] 0.0 10*3/uL Normal 0.0-0.5 [facility] Comment on above: Performed By: #### L [id number] #### Adjustment Examiner: CYNDI LILLY ([id number]) [facility] (SBAB) [address] Eosinophils/100 WBC (Bld) 0.0 % Normal 0.0-6.0 [facility] Comment on above: Performed By: #### L [id number] #### Adjustment Examiner: CYNDI LILLY ([id number]) [facility] ([facility]) [address] Erythrocyte distribution width (RBC) [Ratio] 13.0 % Normal 11.5-15.0 [facility] Comment on above: Performed By: #### L [id number] #### Adjustment Examiner: CYNDI LILLY ([id number]) [facility] [address] Hematocrit (Bld) [Volume fraction] 37.8 % Low 40.0-52.0 [facility] Comment on above: Performed By: #### L [id number] #### Adjustment Examiner: CYNDI LILLY ([id number]) [facility] ([facility]) [address] Hemoglobin (Bld) [Mass/Vol] 13.0 g/dL Normal 13.0-18.0 [facility] Comment on above: Performed By: #### L [id number] #### Adjustment Examiner: CYNDI LILLY ([id number]) [facility] [address] IMMATURE GRANS % 0.5 % Normal 0.0-2.0 [facility] Comment on above: Performed By: #### L [id number] #### Adjustment Examiner: CYNDI LILLY ([id number]) [facility] [address] IMMATURE GRANS ABSOLUTE 0.1 10*3/uL High <0.1 [facility] Comment on above: Performed By: #### L [id number] #### Adjustment Examiner: CYNDI LILLY ([id number]) [facility] (SBHL[facility]) [address] Lymphocytes (Bld) [#/Vol] 0.9 10*3/uL Low 1.0-4.3 [facility] Comment on above: Performed By: #### L [id number] #### Adjustment Examiner: CYNDI LILLY ([id number]) [facility] (SBAB) [address] Lymphocytes/100 WBC (Bld) 8.4 % Low 15.0-45.0 [facility] Comment on above: Performed By: #### L [id number] #### Adjustment Examiner: CYNDI LILLY ([id number]) [facility] (SBHLAB) [address] MCH (RBC) [Entitic mass] 30.3 pg Normal 26.0-34.0 [facility] Comment on above: Performed By: #### L [id number] #### Adjustment Examiner: CYNDI LILLY ([id number]) [facility] ([facility]) [address] MCHC 34.4 % Normal 30.5-36.0 [facility] Comment on above: Performed By: #### L [id number] #### Adjustment Examiner: CYNDI LILLY ([id number]) [facility] (SBHLAB) [address] MCV (RBC) [Entitic vol] 88.1 fL Normal 77.0-99.0 [facility] Comment on above: Performed By: #### L [id number] #### Adjustment Examiner: CYNDI LILLY ([id number]) [facility] (SBHLAB) [address] [place] [address] [place] Monocytes (Bld) [#/Vol] 0.9 10*3/uL Normal 0.0-0.9 [facility] Comment on above: Performed By: #### L [id number] #### Adjustment Examiner: CYNDI LILLY ([id number]) [facility] (SBHLAB) [address] Monocytes/100 WBC (Bld) 8.2 % Normal 5.0-13.0 [facility] Comment on above: Performed By: #### L [id number] #### Adjustment Examiner: CYNDI LILLY ([id number]) [facility] ([facility]HL[facility] [address] NEUTROPHILS ABSOLUTE 8.9 10*3/uL High 1.8-7.5 [facility] Comment on above: Performed By: #### L [id number] #### Adjustment Examiner: CYNDI LILLY ([id number]) [facility] [place] (SBHL[facility]) [address] Neutrophils/100 WBC (Bld) 82.6 % High 38.0-82.0 [facility] Comment on above: Performed By: #### L [id number] #### Adjustment Examiner: CYNDI LILLY ([id number]) [facility] [place] (SB[facility]) [address] NRBC 0.0 /100 WBCs Normal 0.0-2.0 [facility] Comment on above: Performed By: #### L [id number] #### Adjustment Examiner: CYNDI LILLY ([id number]) [facility] [place] (SBHL[facility]) [address] [place] [address] [place] Platelet mean volume (Bld) [Entitic vol] 10.7 fL Normal 9.0-12.7 [facility] Comment on above: Performed By: #### L [id number] #### Adjustment Examiner: CYNDI LILLY ([id number]) [facility] [place] ([facility]) [address] [place] [address] [place] Platelets (Bld) [#/Vol] 148 10*3/uL Normal 140-440 [facility] Comment on above: Performed By: #### L [id number] #### Adjustment Examiner: CYNDI LILLY ([id number]) [facility] (SBHLAB) [address] RBC (Bld) [#/Vol] 4.29 10*6/uL Low 4.40-5.90 [facility] Comment on above: Performed By: #### L [id number] #### Adjustment Examiner: CYNDI LILLY ([id number]) [facility] (SBHLAB) [address] WBC (Bld) [#/Vol] 10.7 10*3/uL Normal 3.6-10.7 [facility] Comment on above: Performed By: #### L [id number] #### Adjustment Examiner: CYNDI LILLY ([id number]) [facility] [address] COMPREHENSIVE METABOLIC PANE Reji 10-02-2023 Albumin [Mass/Vol] 3.7 g/dL Normal 3.5-5.0 [facility] Comment on above: Performed By: #### L [id number], [id number] ####Adjustment Examiner: CYNDI LILLY ([id number])[facility] ([facility])[address] ALP [Catalytic activity/Vol] 78 U/L Normal 38-126 [facility] Comment on above: Performed By: #### L AB17, [id number] ####Adjustment Examiner: CYNDI LILLY ([id number])[facility] (SBHLAB)[address] ALT [Catalytic activity/Vol] 21 U/L Normal 0-49 [facility] Comment on above: Performed By: #### L AB17, [id number] ####Adjustment Examiner: CYNDI LILLY ([id number])[facility] [place] (SBHLAB)[address] Anion gap [Moles/Vol] 10 mmol/L Normal 3-13 [facility] Comment on above: Performed By: #### L AB17, [id number] ####Adjustment Examiner: CYNDI LILLY ([id number])[facility] SHAH[facility]n (SBHLAB)[address] AST [Catalytic activity/Vol] 29 U/L Normal 15-46 [facility] Comment on above: Performed By: #### L AB17, [id number] ####Adjustment Examiner: CYNDI LILLY ([id number])[facility] PETEJAREN (SBHLAB)[address] Bilirubin [Mass/Vol] 1.1 mg/dL Normal 0.2-1.3 [facility] Comment on above: Performed By: #### Alban AB17, [id number] ####Adjustment Examiner: CYNDI LILLY ([id number])[facility] (SBHLAB)[address] Calcium [Mass/Vol] 7.8 mg/dL Low 8.4-10.4 [facility] Comment on above: Performed By: #### L AB17, [id number] ####Adjustment Examiner: CYNDI LILLY ([id number])[facility] PETEJ[facility]EN (SBHLAB)[address] [place] [address] [place] Chloride [Moles/Vol] 102 mmol/L Normal 98-107 [facility] Comment on above: Performed By: #### L AB17, [id number] ####Adjustment Examiner: CYNDI LILLY ([id number])[facility] (SBHLAB)[address] [place] [address] [place] CO2 [Moles/Vol] 23 mmol/L Normal 22-30 [facility] Comment on above: Performed By: #### L AB17, [id number] ####Adjustment Examiner: CYNDI LILLY ([id number])[facility] YUKOJAREN (SBHLAB)[address] Creatinine [Mass/Vol] 0.58 mg/dL Low 0.66-1.25 [facility] Comment on above: Performed By: #### Alban [id number], [id number] ####Adjustment Examiner: CYNDI LILLY ([id number])[facility] (SBHLAB)[address] GLOMERULAR FILTRATION RATE ML/MIN/1.73 SQ M.PREDICTED >90.0 Normal >60.0 [facility] Comment on above: Result Comment: Calc ulation based on the Chronic Kidney Disease Epidemiology Collaboration (CKD-EPI) equation refit without adjustment for race Performed By: #### Alban SMITH, [id number] ####Adjustment Examiner: CYNDI LILLY ([id number])[facility] (SBHLAB)[address] Glucose [Mass/Vol] 111 mg/dL High 70-100 [facility] Comment on above: Performed By: #### Alban SMITH, [id number] ####Adjustment Examiner: CYNDI LILLY ([id number])[facility] BA[facility]IDE (SBHLAB)[address] Potassium [Moles/Vol] 4.0 mmol/L Normal 3.5-5.1 [facility] Comment on above: Performed By: #### Alban SMITH, [id number] ####Adjustment Examiner: CYNDI LILLY ([id number])[facility] (SBHLAB)[address] Protein [Mass/Vol] 6.5 g/dL Normal 6.3-8.2 [facility] Comment on above: Performed By: #### Alban AB17, [id number] ####Adjustment Examiner: CYNDI LILLY ([id number])[facility] (SBHLAB)[address] [place] [address] [place] Sodium [Moles/Vol] 135 mmol/L Normal 135-145 [facility] Comment on above: Performed By: #### L AB17, [id number] ####Adjustment Examiner: CYNDI LILLY ([id number])[facility] (SBHLAB)[address] Urea nitrogen [Mass/Vol] 18 mg/dL Normal 9-20 [facility] Comment on above: Performed By: #### L AB17, [id number] ####Adjustment Examiner: CYNDI LILLY ([id number])[facility] (SBHLAB)[address] HEAD WO IV CONTRASTon CT HEAD WO IV CONTRAST Patient Name: KATHYA YU : 1955 Exam Date/Time: 10/02/2023 11:03 Procedure: CT HEAD WO IV CONTRAST Ordering Provider: TOLEDO AMY Reason For Exam: Neuro deficit, acute, stroke suspected EXAMINATION: CT HEAD WO IV CONTRAST HISTORY: Neuro deficit, acute, stroke suspected - - - - - [id number] - - - - TECHNIQUE: CT head [...] has seen him for that day, night shift manager did not report any problems. EMS states [...] has no complaints at this time. Normal [facility] CT Head WO contraston [address] evidence of an acute intracranial abnormality. Report Dictated on Electronically Signed By: Maria Eugenia Ruiz MD Electronically Signed Date/Time: 10/02/2023 11:09 AM [facility] Patient Name: KATHYA HOOPER : 1955 Exam Date/Time: 10/02/2023 11:03 Procedure: CT HEAD WO IV CONTRAST Ordering Provider: TOLEOD AMY Reason For Exam: Neuro deficit, acute, stroke suspected EXAMINATION: CT HEAD WO IV CONTRAST HISTORY: Neuro deficit, acute, stroke suspected - - - - - [id number] - - - - TECHNIQUE: CT head [...] air cells and the left sphenoid sinus [facility] Maria Eugenia Ruiz MD - 10/02/2023 Patient Name: KATHYA HOOPER : 1955 Exam Date/Time: 10/02/2023 11:03 Procedure: CT HEAD WO IV CONTRAST Ordering Provider: TOLEDO AMY Reason For Exam: Neuro deficit, acute, stroke suspected EXAMINATION: CT HEAD WO IV CONTRAST HISTORY: Neuro deficit, acute, stroke suspected - - - - - [id number] - - - - TECHNIQUE: CT head [...] Electronically Signed Date/Time: 10/02/2023 11:09 AM EDT [facility] Radiology Study observation (narrative) [facility] CT Head WO contrastOrdered B y: Maria Eugenia Ruiz on 10-02-2023 [facility] Work Phone: Comprehensive metabolic 1998 panelon 10-02-2023 Albumin [Mass/Vol] 3.7 g/dL 3.5 - 5.0 g/dL [facility] ALP [Catalytic activity/Vol] 78 U/L 38 - 126 U/L [facility] ALT [Catalytic activity/Vol] 21 U/L 0 - 49 U/L [facility] Anion gap [Moles/Vol] 10 mmol/L 3 - 13 mmol/L [facility] AST [Catalytic activity/Vol] 29 U/L 15 - 46 U/L [facility] Bilirubin [Mass/Vol] 1.1 mg/dL 0.2 - 1 .3 mg/dL [facility] Calcium [Mass/Vol] 7.8 mg/dL Low 8.4 - 10. 4 mg/dL [facility] Chloride [Moles/Vol] 102 mmol/L 98 - 10 7 mmol/L [facility] CO2 [Moles/Vol] 23 mmol/L 22 - 30 mmol/L [facility] Creatinine [Mass/Vol] 0.58 mg/dL Low 0.66 - 1.25 mg/dL [facility] GFR/1.73 sq M.predicted MDRD (S/P/Bld) [Vol rate/Area] - PINF [facility] Comment on above: Calculation based on the Chronic Kidney Disease Epidemiology Collaboration (CKD-EPI) equation refit without adjustment for race Glucose [Mass/Vol] 111 mg/dL High 70 - 100 mg/dL [facility] Interpretation and review of laboratory results Abnormal [facility] Potassium [Moles/Vol] 4.0 mmol/L 3.5 - 5.1 mmol/L [facility] Protein [Mass/Vol] 6.5 g/dL 6.3 - 8.2 g/dL [facility] Sodium [Moles/Vol] 135 mmol/L 135 - 145 mmol/L [facility] Urea nitrogen [Mass/Vol] 18 mg/dL 9 - 20 mg/dL [facility] ECG 12-LEADon 10-02-2023 ECG 12-LEAD IMPRESSION: Sinus tachycardia Left bundle branch block ST elevation secondary to IVCD Electronically Signed On 10-02-2023 12:40:15 EDT by Fei Farooq Normal [facility] ED Nursing Noteon 10-02-2023 ED Nursing Note [facility] at bedside at this time Mami Lantigua RN 10/02/23 1427 Normal [facility] ED Nursing Note This RN gave report to Marnie at [facility] at this time Mami Lantigua RN 10/02/23 1358 Normal [facility] ED Nursing Note This RN went to evaluate patient, was on 2L o2 and does not wear at baseline, plan is dc, this RN turned o2 off to trial patient, spo2 monitor on Mami Lantigua RN 10/02/23 1325 Normal [facility] ED Nursing Note Pt to ct via cart Eloisa Alfaro RN 10/02/23 1043 Normal [facility] ED Nursing Note Pt was brought in [facility] from [facility] for Left sided facial droop. Per EMS nurse is new and does not know patient very well but he is A&O x 2 at baseline. Per EMS the nurse states it was 20 mins ago. Contacted nurse that was caring for him and she states that was the first time she has seen him for that day, night shift manager did not report any problems. EMS states [...] the facility. Hx of schizophrenia. BS 131. [facility] ED Provider Noteon ED Provider Note [facility] ED eMERGENCY dEPARTMENT eNCOUnter Pt Name: Kathya [...] to the emergency department from a local longterm facility where he is currently a resident. [...] History: Diagnosis Date TREVER (acute kidney [facility]) [facility] ([facility]) Alcohol abuse 07/08/2018 Anxiety C1 spinal cord injury ([facility]) ([facility]) Depression Fall 06/2018 Schizophrenia ([facility]) SURGICALHISTORY Past Surgical History: Procedure [...] EmergencyPhysician): Interpret (more content not included)... Normal [facility] ED Provider Note Emergency Department Encounter [facility] ED Patient: Kathya Hooper : 1955 Date [...] are mis-transcribed.) Fei Farooq MD Acute Care [facility] Fei Farooq MD 10/02/23 1129 Normal [facility] Laboratory - Chemistry and C hemistry - challengeon 10-02-2023 Troponin I.cardiac [Mass/Vol] ng/mL NINF - 0.034 ng/mL [facility] Laboratory - Coagulationon 0 10-02-2023 aPTT Coag (PPP) [Time] 29.6 s 20.0 - 30.5 s [facility] INR Coag (PPP) [Relative time] 1.1 {INR} 0.9 - 1.1 [facility] Comment on above: Recommended Anticoag ulant Therapy: [...] [Time] 11.6 s 9.0 - 12.0 s [facility] No Panel Informationon 10-01 Heart Rate 103 bpm [facility] P [place] 48 degrees [facility] RI Interval 172 ms [facility] QRS [place] -38 degrees [facility] QRSD Interval 159 ms [facility] QT Interval 405 ms [facility] QTC Interval 532 ms [facility] T Wave [place] 109 degrees [facility] Sinus tachycardia Left bundle branch block ST elevation secondary to IVCD Electronically Signed On 10-02-2023 12:40:15 EDT by Fei Farooq CV Fei Lopez MD - 10/02/2023 IMPRESSION: Sinus tachycardia Left bundle branch block ST elevation secondary to IVCD Electronically Signed On 10-02-2023 12:40:15 EDT by Fei Farooq [facility] Interpretation and review of laboratory results Normal [facility] PROTIME AND APTTon aPTT Coag (Bld) [Time] 29.6 s Normal 20.0-30.5 [facility] Comment on above: Performed By: #### L [id number] ####Adjustment Examiner: CYNDI LILLY ([id number])[facility] ([address] INR Coag (PPP) [Relative time] 1.1 {INR} Normal 0.9-1.1 [facility] Comment on above: Result Comment: Yefri [...] prevent Myocardial Infarction Performed By: #### L [id number] ####Adjustment Examiner: CYNDI LILLY ([id number])[facility] (SBHLAB)[address] PT Coag (PPP) [Time] 11.6 s Normal 9.0-12.0 [facility] Comment on above: Performed By: #### L [id number] ####Adjustment Examiner: CYNDI LILLY ([id number])[facility] ([facility] TROPONIN, WITH SERIAL REFLEX on 10-02-2023 Troponin I.cardiac [Mass/Vol] ng/mL Normal <0.034 [facility] Comment on above: Result Comment: SHARON Stevens COMMENTS: Patients with high levels of Biotin oral intake (ie >5 mg/day) may have falsely decreased Troponin levels. Performed By: #### L AB17, [id number] ####Adjustment Examiner: CYNDI DRIVERRADHA ([id number])[facility] ([facility] [place] [address] Troponin I.cardiac [Mass/Vol ]on 10-02-2023 Interpretation and review of laboratory results Normal [facility] Patients with high levels of Biotin oral intake (ie >5 mg/day) may have falsely decreased Troponin levels. [facility] XR Chest Single viewon 10-01 No acute cardiopulmonary disease. Report Dictated on Electronically Signed By: Maria Eugenia Ruiz MD Electronically Signed Date/Time: 10/02/2023 11:06 AM [facility] Patient Name: KATHYA HOOPER : 1955 [facility]#: [id number] Exam Date/Time: 10/02/2023 11:11 Procedure: XR CHEST 1 VIEW Ordering Provider: TOLEDO AMY Reason For Exam: DYSPNEA AP CHEST X-RAY CLINICAL INDICATION: DYSPNEA TECHNIQUE: AP portable x-ray of the chest. COMPARISON: March 19, 2021 FINDINGS: Lines/Tubes: None Heart/Mediastinum: Within normal limits Lungs: Well-inflated and clear. No pneumothorax. Bones: Degenerative changes are seen in the thoracic spine and shoulders. No acute osseous findings. [facility] Maria Eugenia Ruiz MD - 10/02/2023 [facility] Name: [facility] 1955 [id number] Exam Date/Time: 10/02/2023 11:11 Procedure: XR CHEST [...] Electronically Signed Date/Time: 10/02/2023 11:06 AM EDT [facility] Radiology Study observation (narrative) [facility] Absolute lymphocyte countOrd ered By: Renard Burgos on 08-07-2023 Lymphocytes Auto (Unsp spec) [#/Vol] 2.23 10*3/uL 0.83-4.51 [facility] Automated lymphocyte count a s percentage of total leukocytesOrdered By: Renard Burgos on 08-07-2023 Lymphocytes/100 WBC Auto (Unsp spec) 23.9 % 19-41 [facility] Basophil percentageOrdered B y: Renard Burgos on 08-07-2023 Basophils/100 WBC (Bld) 0.4 % 0-1 [facility] Eosinophils/100 WBC (Bld) 0.4 % 0-5 [facility] Hemoglobin (Bld) [Mass/Vol] 13.9 g/dL 13.0-16.5 [facility] Monocytes/100 WBC (Bld) 8.0 % 0-10 [facility] Neutrophils (Bld) [#/Vol] 6.2 10*3/uL 2.0-7.7 [facility] Neutrophils/100 WBC (Bld) 66.9 % 47-70 [facility] WBC (Bld) [#/Vol] 9.3 10*3/uL 4.4-11.0 [facility] Determination of erythrocyte mean corpuscular volume (MCV)Ordered By: Renard Burgos on 08-07-2023 MCV (RBC) [Entitic vol] 90.0 fL 80-94 [facility] Erythrocyte distribution wid th ratioOrdered By: Renard Burgos on 08-07-2023 Erythrocyte distribution width (RBC) [Ratio] 13.0 % 11.6-14.6 [facility] Erythrocyte distribution wid th standard deviationOrdered By: Renard Burgos on 08-07-2023 Erythrocyte distribution width (RBC) [Entitic vol] 42.5 fL 35.1-43.9 [facility] Hematocrit Auto (Bld) [Volum e fraction]Ordered By: Renard Burgos on 08-07-2023 Hematocrit (Bld) [Volume fraction] 42.5 % 40-54 [facility] Immature granulocytes/100 WB C Auto (Bld)Ordered By: Renard Burgos on 08-07-2023 Immature granulocytes/100 WBC (Bld) 0.400 % 0.0-0.9 [facility] Comment on above: IG% - Immature Granu locytes (promyelocytes, myelocytes and metamyelocytes) > 1% indicates that a LEFT SHIFT is Present. Laboratory - Hematology and Cell countsOrdered By: Renard Burgos on 08-07-2023 MCH (RBC) [Entitic mass] 29.4 pg 27.0-32.0 [facility] MCHC (RBC) [Mass/Vol] 32.7 g/dL 32-36 [facility] Nucleated RBC/100 WBC (Bld) [Ratio] 0 % 0-5 [facility] Platelet mean volume (Bld) [Entitic vol] 10.7 fL 6.2-12.0 [facility] Platelets (Bld) [#/Vol] 210 10*3/uL 150-450 [facility] RBC Auto (Bld) [#/Vol]Ordere d By: Renard Burgos on 08-07-2023 RBC (Bld) [#/Vol] 4.72 10*6/uL 4.6-6.2 [facility] Absolute lymphocyte countOrd ered By: Renard Burgos on 07-31-2023 Lymphocytes Auto (Unsp spec) [#/Vol] 2.04 10*3/uL 0.83-4.51 [facility] Automated lymphocyte count a s percentage of total leukocytesOrdered By: Renard Burgos on 07-31-2023 Lymphocytes/100 WBC Auto (Unsp spec) 24.2 % 19-41 [facility] Basophil percentageOrdered B y: Renard Burgos on 07-31-2023 Basophils/100 WBC (Bld) 0.6 % 0-1 [facility] Eosinophils/100 WBC (Bld) 0.6 % 0-5 [facility] Hemoglobin (Bld) [Mass/Vol] 13.9 g/dL 13.0-16.5 [facility] Monocytes/100 WBC (Bld) 8.5 % 0-10 [facility] Neutrophils (Bld) [#/Vol] 5.5 10*3/uL 2.0-7.7 [facility] Neutrophils/100 WBC (Bld) 65.7 % 47-70 [facility] WBC (Bld) [#/Vol] 8.4 10*3/uL 4.4-11.0 [facility] Determination of erythrocyte mean corpuscular volume (MCV)Ordered By: Renard Burgos on 07-31-2023 MCV (RBC) [Entitic vol] 89.7 fL 80-94 [facility] Erythrocyte distribution wid th ratioOrdered By: Renard Burgos on 07-31-2023 Erythrocyte distribution width (RBC) [Ratio] 12.8 % 11.6-14.6 [facility] Erythrocyte distribution wid th standard deviationOrdered By: Renard Burgos on 07-31-2023 Erythrocyte distribution width (RBC) [Entitic vol] 42.2 fL 35.1-43.9 [facility] Hematocrit Auto (Bld) [Volum e fraction]Ordered By: Renard Burgos on 07-31-2023 Hematocrit (Bld) [Volume fraction] 41.7 % 40-54 [facility] Immature granulocytes/100 WB C Auto (Bld)Ordered By: Renard Brugos on 07-31-2023 Immature granulocytes/100 WBC (Bld) 0.400 % 0.0-0.9 [facility] Comment on above: IG% - Immature Granu locytes (promyelocytes, myelocytes and metamyelocytes) > 1% indicates that a LEFT SHIFT is Present. Laboratory - Hematology and Cell countsOrdered By: Renard Burgos on 07-31-2023 MCH (RBC) [Entitic mass] 29.9 pg 27.0-32.0 [facility] MCHC (RBC) [Mass/Vol] 33.3 g/dL 32-36 [facility] Nucleated RBC/100 WBC (Bld) [Ratio] 0 % 0-5 [facility] Platelet mean volume (Bld) [Entitic vol] 10.6 fL 6.2-12.0 [facility] Platelets (Bld) [#/Vol] 201 10*3/uL 150-450 [facility] RBC Auto (Bld) [#/Vol]Ordere d By: Renard Burgos on 07-31-2023 RBC (Bld) [#/Vol] 4.65 10*6/uL 4.6-6.2 [facility] Absolute lymphocyte countOrd ered By: Renard Burgos on 07-24-2023 Lymphocytes Auto (Unsp spec) [#/Vol] 2.00 10*3/uL 0.83-4.51 [facility] Automated lymphocyte count a s percentage of total leukocytesOrdered By: Renard Burgos on 07-24-2023 Lymphocytes/100 WBC Auto (Unsp spec) 26.2 % 19-41 [facility] Basophil percentageOrdered B y: Renard Burgos on 07-24-2023 Basophils/100 WBC (Bld) 0.7 % 0-1 [facility] Eosinophils/100 WBC (Bld) 0.7 % 0-5 [facility] Hemoglobin (Bld) [Mass/Vol] 14.2 g/dL 13.0-16.5 [facility] Monocytes/100 WBC (Bld) 6.4 % 0-10 [facility] Neutrophils (Bld) [#/Vol] 5.0 10*3/uL 2.0-7.7 [facility] Neutrophils/100 WBC (Bld) 65.6 % 47-70 [facility] WBC (Bld) [#/Vol] 7.6 10*3/uL 4.4-11.0 [facility] Determination of erythrocyte mean corpuscular volume (MCV)Ordered By: Renard Burgos on 07-24-2023 MCV (RBC) [Entitic vol] 89.8 fL 80-94 [facility] Erythrocyte distribution wid th ratioOrdered By: Renard Burgos on 07-24-2023 Erythrocyte distribution width (RBC) [Ratio] 12.8 % 11.6-14.6 [facility] Erythrocyte distribution wid th standard deviationOrdered By: Renard Burgos on 07-24-2023 Erythrocyte distribution width (RBC) [Entitic vol] 42.0 fL 35.1-43.9 [facility] Hematocrit Auto (Bld) [Volum e fraction]Ordered By: Renard Burgos on 07-24-2023 Hematocrit (Bld) [Volume fraction] 43.3 % 40-54 [facility] Immature granulocytes/100 WB C Auto (Bld)Ordered By: Renard Burgos on 07-24-2023 Immature granulocytes/100 WBC (Bld) 0.400 % 0.0-0.9 [facility] Comment on above: IG% - Immature Granu locytes (promyelocytes, myelocytes and metamyelocytes) > 1% indicates that a LEFT SHIFT is Present. Laboratory - Hematology and Cell countsOrdered By: Renard Burgos on 07-24-2023 MCH (RBC) [Entitic mass] 29.5 pg 27.0-32.0 [facility] MCHC (RBC) [Mass/Vol] 32.8 g/dL 32-36 [facility] Nucleated RBC/100 WBC (Bld) [Ratio] 0 % 0-5 [facility] Platelet mean volume (Bld) [Entitic vol] 11.0 fL 6.2-12.0 [facility] Platelets (Bld) [#/Vol] 215 10*3/uL 150-450 [facility] RBC Auto (Bld) [#/Vol]Ordere d By: Renard Burgos on 07-24-2023 RBC (Bld) [#/Vol] 4.82 10*6/uL 4.6-6.2 [facility] Absolute lymphocyte countOrd ered By: Renard Burgos on 07-17-2023 Lymphocytes Auto (Unsp spec) [#/Vol] 2.22 10*3/uL 0.83-4.51 [facility] Automated lymphocyte count a s percentage of total leukocytesOrdered By: Renard Burgos on 07-17-2023 Lymphocytes/100 WBC Auto (Unsp spec) 25.4 % 19-41 [facility] Basophil percentageOrdered B y: Renard Burgos on 07-17-2023 Basophils/100 WBC (Bld) 0.5 % 0-1 [facility] Cholesterol [Mass/Vol] 126 mg/dL <200 [facility] Comment on above: <200 mg/dL Desirable 200-240 mg/dL Borderline >240 mg/dL High Risk Eosinophils/100 WBC (Bld) 0.6 % 0-5 [facility] Hemoglobin (Bld) [Mass/Vol] 14.0 g/dL 13.0-16.5 [facility] Monocytes/100 WBC (Bld) 6.6 % 0-10 [facility] Neutrophils (Bld) [#/Vol] 5.8 10*3/uL 2.0-7.7 [facility] Neutrophils/100 WBC (Bld) 66.4 % 47-70 [facility] Triglyceride [Mass/Vol] 176 mg/dL <199 [facility] Comment on above: The drugs N-Acetylcy steine and Metamizole may falsely depress this assay.Serum Triglycerides Reference Interval Normal <150 mg/dL Borderline high 150 - 199 mg/dL High 200 - 499 mg/dL Very High > or = 500 mg/dL WBC (Bld) [#/Vol] 8.7 10*3/uL 4.4-11.0 [facility] Determination of erythrocyte mean corpuscular volume (MCV)Ordered By: Renard Burgos on 07-17-2023 MCV (RBC) [Entitic vol] 90.5 fL 80-94 [facility] Erythrocyte distribution wid th ratioOrdered By: Renard Burgos on 07-17-2023 Erythrocyte distribution width (RBC) [Ratio] 12.4 % 11.6-14.6 [facility] Erythrocyte distribution wid th standard deviationOrdered By: Renard Burgos on 07-17-2023 Erythrocyte distribution width (RBC) [Entitic vol] 41.1 fL 35.1-43.9 [facility] Hematocrit Auto (Bld) [Volum e fraction]Ordered By: Renard Burgos on 07-17-2023 Hematocrit (Bld) [Volume fraction] 42.8 % 40-54 [facility] Immature granulocytes/100 WB C Auto (Bld)Ordered By: Renard Burgos on 07-17-2023 Immature granulocytes/100 WBC (Bld) 0.500 % 0.0-0.9 [facility] Comment on above: IG% - Immature Granu locytes (promyelocytes, myelocytes and metamyelocytes) > 1% indicates that a LEFT SHIFT is Present. Laboratory - Chemistry and C hemistry - challengeOrdered By: Renard Burgos on 07-17-2023 Cholesterol in HDL [Mass/Vol] 28 mg/dL >40 [facility] Comment on above: The drugs N-Acetylcy steine and Metamizole may falsely depress this assay. Reference Range HDL <40 mg/dL Low HDL Cholesterol HDL >or= 60 mg/dL High HDL Cholesterol Cholesterol in LDL [Mass/Vol] 63 mg/dL 0-130 [facility] Laboratory - Hematology and Cell countsOrdered By: Renard Burgos on 07-17-2023 MCH (RBC) [Entitic mass] 29.6 pg 27.0-32.0 [facility] MCHC (RBC) [Mass/Vol] 32.7 g/dL 32-36 [facility] Nucleated RBC/100 WBC (Bld) [Ratio] 0 % 0-5 [facility] Platelet mean volume (Bld) [Entitic vol] 10.9 fL 6.2-12.0 [facility] Platelets (Bld) [#/Vol] 193 10*3/uL 150-450 [facility] No Panel InformationOrdered By: Renard Burgos on 07-17-2023 Vitamin D 25-Hydroxy 33.1 ng/mL [facility] Comment on above: Vitamin D 25(OH) Sta tus Range Deficiency <20 ng/mL (50nmol/L) Insufficiency 20 - 30 ng/mL (50 - 75 nmol/L) Sufficiency 30 - 100 ng/mL (75 - 250 nmol/L) Toxicity >100 ng/mL (>250 nmol/L) VLDL Cholesterol 35 mg/dL 5-40 [facility] RBC Auto (Bld) [#/Vol]Ordere d By: Renard Burgos on 07-17-2023 RBC (Bld) [#/Vol] 4.73 10*6/uL 4.6-6.2 [facility] Absolute lymphocyte countOrd ered By: Renard Burgos on 07-10-2023 Lymphocytes Auto (Unsp spec) [#/Vol] 2.14 10*3/uL 0.83-4.51 [facility] Automated lymphocyte count a s percentage of total leukocytesOrdered By: Renard Burgos on 07-10-2023 Lymphocytes/100 WBC Auto (Unsp spec) 24.7 % 19-41 [facility] Basophil percentageOrdered B y: Renard Burgos on 07-10-2023 Basophils/100 WBC (Bld) 0.3 % 0-1 [facility] Eosinophils/100 WBC (Bld) 0.3 % 0-5 [facility] Hemoglobin (Bld) [Mass/Vol] 13.8 g/dL 13.0-16.5 [facility] Monocytes/100 WBC (Bld) 7.8 % 0-10 [facility] Neutrophils (Bld) [#/Vol] 5.8 10*3/uL 2.0-7.7 [facility] Neutrophils/100 WBC (Bld) 66.4 % 47-70 [facility] WBC (Bld) [#/Vol] 8.7 10*3/uL 4.4-11.0 [facility] Determination of erythrocyte mean corpuscular volume (MCV)Ordered By: Renard Burgos on 07-10-2023 MCV (RBC) [Entitic vol] 88.9 fL 80-94 [facility] Erythrocyte distribution wid th ratioOrdered By: Renard Burgos on 07-10-2023 Erythrocyte distribution width (RBC) [Ratio] 12.6 % 11.6-14.6 [facility] Erythrocyte distribution wid th standard deviationOrdered By: Renard Burgos on 07-10-2023 Erythrocyte distribution width (RBC) [Entitic vol] 40.6 fL 35.1-43.9 [facility] Hematocrit Auto (Bld) [Volum e fraction]Ordered By: Renard Burgos on 07-10-2023 Hematocrit (Bld) [Volume fraction] 41.0 % 40-54 [facility] Immature granulocytes/100 WB C Auto (Bld)Ordered By: Renard Burgos on 07-10-2023 Immature granulocytes/100 WBC (Bld) 0.500 % 0.0-0.9 [facility] Comment on above: IG% - Immature Granu locytes (promyelocytes, myelocytes and metamyelocytes) > 1% indicates that a LEFT SHIFT is Present. Laboratory - Hematology and Cell countsOrdered By: Renard Burgos on 07-10-2023 MCH (RBC) [Entitic mass] 29.9 pg 27.0-32.0 [facility] MCHC (RBC) [Mass/Vol] 33.7 g/dL 32-36 [facility] Nucleated RBC/100 WBC (Bld) [Ratio] 0 % 0-5 [facility] Platelet mean volume (Bld) [Entitic vol] 11.0 fL 6.2-12.0 [facility] Platelets (Bld) [#/Vol] 215 10*3/uL 150-450 [facility] RBC Auto (Bld) [#/Vol]Ordere d By: Renard Burgos on 07-10-2023 RBC (Bld) [#/Vol] 4.61 10*6/uL 4.6-6.2 [facility] Absolute lymphocyte countOrd ered By: Renard Burgos on 07-03-2023 Lymphocytes Auto (Unsp spec) [#/Vol] 1.84 10*3/uL 0.83-4.51 [facility] Automated lymphocyte count a s percentage of total leukocytesOrdered By: Renard Burgos on 07-03-2023 Lymphocytes/100 WBC Auto (Unsp spec) 16.9 % 19-41 [facility] Basophil percentageOrdered B y: Renard Burgos on 07-03-2023 Basophil percentage 3.17 ng/mL 0.0-4.0 [facility] Comment on above: This test was perfor med using the TPSA assay method for theDiHelijiasion chemistry system. Values obtained with differentassay methods cannot be used interchangably.When changing PSA assays in the course of monitoring apatient, additional sequential testing should be carriedout to confirm baseline values. Basophils/100 WBC (Bld) 0.5 % 0-1 [facility] Eosinophils/100 WBC (Bld) 0.4 % 0-5 [facility] Hemoglobin (Bld) [Mass/Vol] 13.2 g/dL 13.0-16.5 [facility] Monocytes/100 WBC (Bld) 7.4 % 0-10 [facility] Neutrophils (Bld) [#/Vol] 8.1 10*3/uL 2.0-7.7 [facility] Neutrophils/100 WBC (Bld) 74.4 % 47-70 [facility] WBC (Bld) [#/Vol] 10.9 10*3/uL 4.4-11.0 [facility] Determination of erythrocyte mean corpuscular volume (MCV)Ordered By: Renard Burgos on 07-03-2023 MCV (RBC) [Entitic vol] 89.8 fL 80-94 [facility] Erythrocyte distribution wid th ratioOrdered By: Renard Burgos on 07-03-2023 Erythrocyte distribution width (RBC) [Ratio] 12.7 % 11.6-14.6 [facility] Erythrocyte distribution wid th standard deviationOrdered By: Renard Burgos on 07-03-2023 Erythrocyte distribution width (RBC) [Entitic vol] 41.9 fL 35.1-43.9 [facility] Hematocrit Auto (Bld) [Volum e fraction]Ordered By: Renard Burgos on 07-03-2023 Hematocrit (Bld) [Volume fraction] 40.3 % 40-54 [facility] Immature granulocytes/100 WB C Auto (Bld)Ordered By: Renard Burgos on 07-03-2023 Immature granulocytes/100 WBC (Bld) 0.400 % 0.0-0.9 [facility] Comment on above: IG% - Immature Granu locytes (promyelocytes, myelocytes and metamyelocytes) > 1% indicates that a LEFT SHIFT is Present. Laboratory - Hematology and Cell countsOrdered By: Renard Burgos on 07-03-2023 MCH (RBC) [Entitic mass] 29.4 pg 27.0-32.0 [facility] MCHC (RBC) [Mass/Vol] 32.8 g/dL 32-36 [facility] Nucleated RBC/100 WBC (Bld) [Ratio] 0 % 0-5 [facility] Platelet mean volume (Bld) [Entitic vol] 11.2 fL 6.2-12.0 [facility] Platelets (Bld) [#/Vol] 191 10*3/uL 150-450 [facility] RBC Auto (Bld) [#/Vol]Ordere d By: Renard Burgos on 07-03-2023 RBC (Bld) [#/Vol] 4.49 10*6/uL 4.6-6.2 [facility] Absolute lymphocyte countOrd ered By: Renard Burgos on 06-26-2023 Lymphocytes Auto (Unsp spec) [#/Vol] 2.23 10*3/uL 0.83-4.51 [facility] Automated lymphocyte count a s percentage of total leukocytesOrdered By: Renard Burgos on 06-26-2023 Lymphocytes/100 WBC Auto (Unsp spec) 27.3 % 19-41 [facility] Basophil percentageOrdered B y: Renard Burgos on 06-26-2023 Basophils/100 WBC (Bld) 0.5 % 0-1 [facility] Eosinophils/100 WBC (Bld) 0.7 % 0-5 [facility] Hemoglobin (Bld) [Mass/Vol] 13.7 g/dL 13.0-16.5 [facility] Monocytes/100 WBC (Bld) 9.5 % 0-10 [facility] Neutrophils (Bld) [#/Vol] 5.1 10*3/uL 2.0-7.7 [facility] Neutrophils/100 WBC (Bld) 61.8 % 47-70 [facility] WBC (Bld) [#/Vol] 8.2 10*3/uL 4.4-11.0 [facility] Determination of erythrocyte mean corpuscular volume (MCV)Ordered By: Renard Bugros on 06-26-2023 MCV (RBC) [Entitic vol] 92.2 fL 80-94 [facility] Erythrocyte distribution wid th ratioOrdered By: Renard Burgos on 06-26-2023 Erythrocyte distribution width (RBC) [Ratio] 12.7 % 11.6-14.6 [facility] Erythrocyte distribution wid th standard deviationOrdered By: Renard Burgos on 06-26-2023 Erythrocyte distribution width (RBC) [Entitic vol] 42.8 fL 35.1-43.9 [facility] Hematocrit Auto (Bld) [Volum e fraction]Ordered By: Renard Burgos on 06-26-2023 Hematocrit (Bld) [Volume fraction] 42.6 % 40-54 [facility] Immature granulocytes/100 WB C Auto (Bld)Ordered By: Renard Burgos on 06-26-2023 Immature granulocytes/100 WBC (Bld) 0.200 % 0.0-0.9 [facility] Comment on above: IG% - Immature Granu locytes (promyelocytes, myelocytes and metamyelocytes) > 1% indicates that a LEFT SHIFT is Present. Laboratory - Hematology and Cell countsOrdered By: Renard Burgos on 06-26-2023 MCH (RBC) [Entitic mass] 29.7 pg 27.0-32.0 [facility] MCHC (RBC) [Mass/Vol] 32.2 g/dL 32-36 [facility] Nucleated RBC/100 WBC (Bld) [Ratio] 0 % 0-5 [facility] Platelet mean volume (Bld) [Entitic vol] 11.0 fL 6.2-12.0 [facility] Platelets (Bld) [#/Vol] 182 10*3/uL 150-450 [facility] RBC Auto (Bld) [#/Vol]Ordere d By: Renard Burgos on 06-26-2023 RBC (Bld) [#/Vol] 4.62 10*6/uL 4.6-6.2 [facility] Absolute lymphocyte countOrd ered By: Renard Burgos on 06-19-2023 Lymphocytes Auto (Unsp spec) [#/Vol] 2.13 10*3/uL 0.83-4.51 [facility] Automated lymphocyte count a s percentage of total leukocytesOrdered By: Renard Burgos on 06-19-2023 Lymphocytes/100 WBC Auto (Unsp spec) 28.8 % 19-41 [facility] Basophil percentageOrdered B y: Renard Burgos on 06-19-2023 Basophils/100 WBC (Bld) 0.5 % 0-1 [facility] Eosinophils/100 WBC (Bld) 0.5 % 0-5 [facility] Hemoglobin (Bld) [Mass/Vol] 13.7 g/dL 13.0-16.5 [facility] Monocytes/100 WBC (Bld) 8.1 % 0-10 [facility] Neutrophils (Bld) [#/Vol] 4.6 10*3/uL 2.0-7.7 [facility] Neutrophils/100 WBC (Bld) 61.6 % 47-70 [facility] WBC (Bld) [#/Vol] 7.4 10*3/uL 4.4-11.0 [facility] Determination of erythrocyte mean corpuscular volume (MCV)Ordered By: Renard Burgos on 06-19-2023 MCV (RBC) [Entitic vol] 91.7 fL 80-94 [facility] Erythrocyte distribution wid th ratioOrdered By: Renard Burgos on 06-19-2023 Erythrocyte distribution width (RBC) [Ratio] 12.7 % 11.6-14.6 [facility] Erythrocyte distribution wid th standard deviationOrdered By: Renard Burgos on 06-19-2023 Erythrocyte distribution width (RBC) [Entitic vol] 42.8 fL 35.1-43.9 [facility] Hematocrit Auto (Bld) [Volum e fraction]Ordered By: Renard Burgos on 06-19-2023 Hematocrit (Bld) [Volume fraction] 43.1 % 40-54 [facility] Immature granulocytes/100 WB C Auto (Bld)Ordered By: Renard Burgos on 06-19-2023 Immature granulocytes/100 WBC (Bld) 0.500 % 0.0-0.9 [facility] Comment on above: IG% - Immature Granu locytes (promyelocytes, myelocytes and metamyelocytes) > 1% indicates that a LEFT SHIFT is Present. Laboratory - Hematology and Cell countsOrdered By: Renard Burgos on 06-19-2023 MCH (RBC) [Entitic mass] 29.1 pg 27.0-32.0 [facility] MCHC (RBC) [Mass/Vol] 31.8 g/dL 32-36 [facility] Nucleated RBC/100 WBC (Bld) [Ratio] 0 % 0-5 [facility] Platelet mean volume (Bld) [Entitic vol] 11.1 fL 6.2-12.0 [facility] Platelets (Bld) [#/Vol] 201 10*3/uL 150-450 [facility] RBC Auto (Bld) [#/Vol]Ordere d By: Renard Burgos on 06-19-2023 RBC (Bld) [#/Vol] 4.70 10*6/uL 4.6-6.2 [facility] Absolute lymphocyte countOrd ered By: Renard Burgos on 06-12-2023 Lymphocytes Auto (Unsp spec) [#/Vol] 2.17 10*3/uL 0.83-4.51 [facility] Automated lymphocyte count a s percentage of total leukocytesOrdered By: Renard Burgos on 06-12-2023 Lymphocytes/100 WBC Auto (Unsp spec) 26.7 % 19-41 [facility] Basophil percentageOrdered B y: Renard Burgos on 06-12-2023 Basophils/100 WBC (Bld) 0.4 % 0-1 [facility] Eosinophils/100 WBC (Bld) 0.5 % 0-5 [facility] Hemoglobin (Bld) [Mass/Vol] 13.5 g/dL 13.0-16.5 [facility] Monocytes/100 WBC (Bld) 9.0 % 0-10 [facility] Neutrophils (Bld) [#/Vol] 5.1 10*3/uL 2.0-7.7 [facility] Neutrophils/100 WBC (Bld) 63.0 % 47-70 [facility] WBC (Bld) [#/Vol] 8.1 10*3/uL 4.4-11.0 [facility] Determination of erythrocyte mean corpuscular volume (MCV)Ordered By: Renard Burgos on 06-12-2023 MCV (RBC) [Entitic vol] 91.3 fL 80-94 [facility] Erythrocyte distribution wid th ratioOrdered By: Renard Burgos on 06-12-2023 Erythrocyte distribution width (RBC) [Ratio] 12.6 % 11.6-14.6 [facility] Erythrocyte distribution wid th standard deviationOrdered By: Renard Burgos on 06-12-2023 Erythrocyte distribution width (RBC) [Entitic vol] 41.5 fL 35.1-43.9 [facility] Hematocrit Auto (Bld) [Volum e fraction]Ordered By: Renard Burgos on 06-12-2023 Hematocrit (Bld) [Volume fraction] 40.8 % 40-54 [facility] Immature granulocytes/100 WB C Auto (Bld)Ordered By: Renard Burgos on 06-12-2023 Immature granulocytes/100 WBC (Bld) 0.400 % 0.0-0.9 [facility] Comment on above: IG% - Immature Granu locytes (promyelocytes, myelocytes and metamyelocytes) > 1% indicates that a LEFT SHIFT is Present. Laboratory - Hematology and Cell countsOrdered By: Renard Burgos on 06-12-2023 MCH (RBC) [Entitic mass] 30.2 pg 27.0-32.0 [facility] MCHC (RBC) [Mass/Vol] 33.1 g/dL 32-36 [facility] Nucleated RBC/100 WBC (Bld) [Ratio] 0 % 0-5 [facility] Platelet mean volume (Bld) [Entitic vol] 11.0 fL 6.2-12.0 [facility] Platelets (Bld) [#/Vol] 195 10*3/uL 150-450 [facility] RBC Auto (Bld) [#/Vol]Ordere d By: Renard Burgos on 06-12-2023 RBC (Bld) [#/Vol] 4.47 10*6/uL 4.6-6.2 [facility] Absolute lymphocyte countOrd ered By: Renard Burgos on 06-05-2023 Lymphocytes Auto (Unsp spec) [#/Vol] 2.05 10*3/uL 0.83-4.51 [facility] Automated lymphocyte count a s percentage of total leukocytesOrdered By: Renard Burgos on 06-05-2023 Lymphocytes/100 WBC Auto (Unsp spec) 24.1 % 19-41 [facility] Basophil percentageOrdered B y: Renard Burgos on 06-05-2023 Basophils/100 WBC (Bld) 0.5 % 0-1 [facility] Eosinophils/100 WBC (Bld) 0.5 % 0-5 [facility] Hemoglobin (Bld) [Mass/Vol] 13.6 g/dL 13.0-16.5 [facility] Monocytes/100 WBC (Bld) 7.6 % 0-10 [facility] Neutrophils (Bld) [#/Vol] 5.7 10*3/uL 2.0-7.7 [facility] Neutrophils/100 WBC (Bld) 66.9 % 47-70 [facility] WBC (Bld) [#/Vol] 8.5 10*3/uL 4.4-11.0 [facility] Determination of erythrocyte mean corpuscular volume (MCV)Ordered By: Renard Burgos on 06-05-2023 MCV (RBC) [Entitic vol] 89.7 fL 80-94 [facility] Erythrocyte distribution wid th ratioOrdered By: Renard Burgos on 06-05-2023 Erythrocyte distribution width (RBC) [Ratio] 12.6 % 11.6-14.6 [facility] Erythrocyte distribution wid th standard deviationOrdered By: Renard Burgos on 06-05-2023 Erythrocyte distribution width (RBC) [Entitic vol] 41.1 fL 35.1-43.9 [facility] Hematocrit Auto (Bld) [Volum e fraction]Ordered By: Renard Burgos on 06-05-2023 Hematocrit (Bld) [Volume fraction] 41.0 % 40-54 [facility] Immature granulocytes/100 WB C Auto (Bld)Ordered By: Renard Burgos on 06-05-2023 Immature granulocytes/100 WBC (Bld) 0.400 % 0.0-0.9 [facility] Comment on above: IG% - Immature Granu locytes (promyelocytes, myelocytes and metamyelocytes) > 1% indicates that a LEFT SHIFT is Present. Laboratory - Hematology and Cell countsOrdered By: Renard Burgos on 06-05-2023 MCH (RBC) [Entitic mass] 29.8 pg 27.0-32.0 [facility] MCHC (RBC) [Mass/Vol] 33.2 g/dL 32-36 [facility] Nucleated RBC/100 WBC (Bld) [Ratio] 0 % 0-5 [facility] Platelets (Bld) [#/Vol] 193 10*3/uL 150-450 [facility] Platelet mean volume Adam-Ec ker (Bld) [Entitic vol]Ordered By: Renard Burgos on 06-05-2023 Platelet mean volume (Bld) [Entitic vol] 10.8 fL 6.2-12.0 [facility] RBC Auto (Bld) [#/Vol]Ordere d By: Renard Burgos on 06-05-2023 RBC (Bld) [#/Vol] 4.57 10*6/uL 4.6-6.2 [facility] Absolute lymphocyte countOrd ered By: Renard Burgos on 05-29-2023 Lymphocytes Auto (Unsp spec) [#/Vol] 2.32 10*3/uL 0.83-4.51 [facility] Automated lymphocyte count a s percentage of total leukocytesOrdered By: Renard Burgos on 05-29-2023 Lymphocytes/100 WBC Auto (Unsp spec) 26.7 % 19-41 [facility] Basophil percentageOrdered B y: Renard Burgos on 05-29-2023 Basophils/100 WBC (Bld) 0.6 % 0-1 [facility] Eosinophils/100 WBC (Bld) 0.5 % 0-5 [facility] Hemoglobin (Bld) [Mass/Vol] 14.2 g/dL 13.0-16.5 [facility] Monocytes/100 WBC (Bld) 6.8 % 0-10 [facility] Neutrophils (Bld) [#/Vol] 5.7 10*3/uL 2.0-7.7 [facility] Neutrophils/100 WBC (Bld) 65.2 % 47-70 [facility] WBC (Bld) [#/Vol] 8.7 10*3/uL 4.4-11.0 [facility] Determination of erythrocyte mean corpuscular volume (MCV)Ordered By: Renard Burgos on 05-29-2023 MCV (RBC) [Entitic vol] 94.0 fL 80-94 [facility] Erythrocyte distribution wid th ratioOrdered By: Renard Burgos on 05-29-2023 Erythrocyte distribution width (RBC) [Ratio] 12.6 % 11.6-14.6 [facility] Erythrocyte distribution wid th standard deviationOrdered By: Renard Burgos on 05-29-2023 Erythrocyte distribution width (RBC) [Entitic vol] 43.0 fL 35.1-43.9 [facility] Hematocrit Auto (Bld) [Volum e fraction]Ordered By: Renard Burgos on 05-29-2023 Hematocrit (Bld) [Volume fraction] 45.4 % 40-54 [facility] Immature granulocytes/100 WB C Auto (Bld)Ordered By: Renard Burgos on 05-29-2023 Immature granulocytes/100 WBC (Bld) 0.200 % 0.0-0.9 [facility] Comment on above: IG% - Immature Granu locytes (promyelocytes, myelocytes and metamyelocytes) > 1% indicates that a LEFT SHIFT is Present. Laboratory - Hematology and Cell countsOrdered By: Renard Burgos on 05-29-2023 MCH (RBC) [Entitic mass] 29.4 pg 27.0-32.0 [facility] MCHC (RBC) [Mass/Vol] 31.3 g/dL 32-36 [facility] Nucleated RBC/100 WBC (Bld) [Ratio] 0 % 0-5 [facility] Platelets (Bld) [#/Vol] 116 10*3/uL 150-450 [facility] Platelet mean volume Adam-Ec ker (Bld) [Entitic vol]Ordered By: Renard Burgos on 05-29-2023 Platelet mean volume (Bld) [Entitic vol] 11.1 fL 6.2-12.0 [facility] RBC Auto (Bld) [#/Vol]Ordere d By: Renard Burgos on 05-29-2023 RBC (Bld) [#/Vol] 4.83 10*6/uL 4.6-6.2 [facility] Absolute lymphocyte countOrd ered By: Renard Burgos on 05-22-2023 Lymphocytes Auto (Unsp spec) [#/Vol] 2.40 10*3/uL 0.83-4.51 [facility] Automated lymphocyte count a s percentage of total leukocytesOrdered By: Renard Burgos on 05-22-2023 Lymphocytes/100 WBC Auto (Unsp spec) 25.6 % 19-41 [facility] Basophil percentageOrdered B y: Renard Burgos on 05-22-2023 Basophils/100 WBC (Bld) 0.4 % 0-1 [facility] Eosinophils/100 WBC (Bld) 0.4 % 0-5 [facility] Hemoglobin (Bld) [Mass/Vol] 13.7 g/dL 13.0-16.5 [facility] Monocytes/100 WBC (Bld) 9.1 % 0-10 [facility] Neutrophils (Bld) [#/Vol] 6.0 10*3/uL 2.0-7.7 [facility] Neutrophils/100 WBC (Bld) 63.9 % 47-70 [facility] WBC (Bld) [#/Vol] 9.4 10*3/uL 4.4-11.0 [facility] Determination of erythrocyte mean corpuscular volume (MCV)Ordered By: Renard Burgos on 05-22-2023 MCV (RBC) [Entitic vol] 91.8 fL 80-94 [facility] Erythrocyte distribution wid th ratioOrdered By: Renard Burgos on 05-22-2023 Erythrocyte distribution width (RBC) [Ratio] 12.8 % 11.6-14.6 [facility] Erythrocyte distribution wid th standard deviationOrdered By: Renard Burgos on 05-22-2023 Erythrocyte distribution width (RBC) [Entitic vol] 43.4 fL 35.1-43.9 [facility] Hematocrit Auto (Bld) [Volum e fraction]Ordered By: Renard Burgos on 05-22-2023 Hematocrit (Bld) [Volume fraction] 41.5 % 40-54 [facility] Immature granulocytes/100 WB C Auto (Bld)Ordered By: Renard Burgos on 05-22-2023 Immature granulocytes/100 WBC (Bld) 0.600 % 0.0-0.9 [facility] Comment on above: IG% - Immature Granu locytes (promyelocytes, myelocytes and metamyelocytes) > 1% indicates that a LEFT SHIFT is Present. Laboratory - Hematology and Cell countsOrdered By: Renard Burgos on 05-22-2023 MCH (RBC) [Entitic mass] 30.3 pg 27.0-32.0 [facility] MCHC (RBC) [Mass/Vol] 33.0 g/dL 32-36 [facility] Nucleated RBC/100 WBC (Bld) [Ratio] 0 % 0-5 [facility] Platelets (Bld) [#/Vol] 192 10*3/uL 150-450 [facility] Platelet mean volume Adam-Ec ker (Bld) [Entitic vol]Ordered By: Renard Burgos on 05-22-2023 Platelet mean volume (Bld) [Entitic vol] 11.3 fL 6.2-12.0 [facility] RBC Auto (Bld) [#/Vol]Ordere d By: Renard Burgos on 05-22-2023 RBC (Bld) [#/Vol] 4.52 10*6/uL 4.6-6.2 [facility] Absolute lymphocyte countOrd ered By: Renard Burgos on 05-15-2023 Lymphocytes Auto (Unsp spec) [#/Vol] 2.11 10*3/uL 0.83-4.51 [facility] Basophil percentageOrdered B y: Renard Burgos on 05-15-2023 Basophils/100 WBC (Bld) 0.6 % 0-1 [facility] Eosinophils/100 WBC (Bld) 0.8 % 0-5 [facility] Neutrophils (Bld) [#/Vol] 4.9 10*3/uL 2.0-7.7 [facility] Neutrophils/100 WBC (Bld) 62.4 % 47-70 [facility] WBC (Bld) [#/Vol] 7.9 10*3/uL 4.4-11.0 [facility] Blood erythrocytes count (nu mber/volume)Ordered By: Renard Burgos on 05-15-2023 RBC (Bld) [#/Vol] 4.61 10*6/uL 4.6-6.2 [facility] Blood hemoglobin measurement (mass/volume)Ordered By: Renard Burgos on 05-15-2023 Hemoglobin (Bld) [Mass/Vol] 13.9 g/dL 13.0-16.5 [facility] Blood lymphocytes/100 leukoc ytesOrdered By: Renard Burgos on 05-15-2023 Lymphocytes/100 WBC (Bld) 26.7 % 19-41 [facility] Blood monocytes/100 leukocyt esOrdered By: Renard Burgos on 05-15-2023 Monocytes/100 WBC (Bld) 9.1 % 0-10 [facility] Blood platelet mean volumeOr dered By: Renard Burgos on 05-15-2023 Platelet mean volume (Bld) [Entitic vol] 10.7 fL 6.2-12.0 [facility] Determination of erythrocyte mean corpuscular volume (MCV)Ordered By: Renard Burgos on 05-15-2023 MCV (RBC) [Entitic vol] 90.5 fL 80-94 [facility] Hematocrit Auto (Bld) [Volum e fraction]Ordered By: Renard Burgos on 05-15-2023 Hematocrit (Bld) [Volume fraction] 41.7 % 40-54 [facility] Laboratory - Hematology and Cell countsOrdered By: eRnard Burgos on 05-15-2023 Erythrocyte distribution width (RBC) [Entitic vol] 42.4 fL 35.1-43.9 [facility] Erythrocyte distribution width (RBC) [Ratio] 12.9 % 11.6-14.6 [facility] Immature granulocytes/100 WBC (Bld) 0.400 % 0.0-0.9 [facility] Comment on above: IG% - Immature Granu locytes (promyelocytes, myelocytes and metamyelocytes) > 1% indicates that a LEFT SHIFT is Present. MCH (RBC) [Entitic mass] 30.2 pg 27.0-32.0 [facility] Nucleated RBC/100 WBC (Bld) [Ratio] 0 % 0-5 [facility] MCHC Auto (RBC) [Mass/Vol]Or dered By: Renard Burgos on 05-15-2023 MCHC (RBC) [Mass/Vol] 33.3 g/dL 32-36 [facility] Platelets bldOrdered By: Lyubov Burgos on 05-15-2023 Platelets (Bld) [#/Vol] 202 10*3/uL 150-450 [facility] Absolute lymphocyte countOrd ered By: Renard Burgos on 05-08-2023 Lymphocytes Auto (Unsp spec) [#/Vol] 2.06 10*3/uL 0.83-4.51 [facility] Basophil percentageOrdered B y: Renard Burgos on 05-08-2023 Basophils/100 WBC (Bld) 0.4 % 0-1 [facility] Eosinophils/100 WBC (Bld) 0.5 % 0-5 [facility] Neutrophils (Bld) [#/Vol] 5.0 10*3/uL 2.0-7.7 [facility] Neutrophils/100 WBC (Bld) 65.7 % 47-70 [facility] WBC (Bld) [#/Vol] 7.5 10*3/uL 4.4-11.0 [facility] Blood erythrocytes count (nu mber/volume)Ordered By: Renard Burgos on 05-08-2023 RBC (Bld) [#/Vol] 4.62 10*6/uL 4.6-6.2 [facility] Blood hemoglobin measurement (mass/volume)Ordered By: Renard Burgos on 05-08-2023 Hemoglobin (Bld) [Mass/Vol] 13.6 g/dL 13.0-16.5 [facility] Blood lymphocytes/100 leukoc ytesOrdered By: Renard Burgos on 05-08-2023 Lymphocytes/100 WBC (Bld) 27.4 % 19-41 [facility] Blood monocytes/100 leukocyt esOrdered By: Renard Burgos on 05-08-2023 Monocytes/100 WBC (Bld) 5.6 % 0-10 [facility] Blood platelet mean volumeOr dered By: Renard Burgos on 05-08-2023 Platelet mean volume (Bld) [Entitic vol] 11.0 fL 6.2-12.0 [facility] Determination of erythrocyte mean corpuscular volume (MCV)Ordered By: Renard Burgos on 05-08-2023 MCV (RBC) [Entitic vol] 91.8 fL 80-94 [facility] Hematocrit Auto (Bld) [Volum e fraction]Ordered By: Renard Burgos on 05-08-2023 Hematocrit (Bld) [Volume fraction] 42.4 % 40-54 [facility] Laboratory - Hematology and Cell countsOrdered By: Renard Burgos on 05-08-2023 Erythrocyte distribution width (RBC) [Entitic vol] 43.1 fL 35.1-43.9 [facility] Erythrocyte distribution width (RBC) [Ratio] 13.0 % 11.6-14.6 [facility] Immature granulocytes/100 WBC (Bld) 0.400 % 0.0-0.9 [facility] Comment on above: IG% - Immature Granu locytes (promyelocytes, myelocytes and metamyelocytes) > 1% indicates that a LEFT SHIFT is Present. MCH (RBC) [Entitic mass] 29.4 pg 27.0-32.0 [facility] Nucleated RBC/100 WBC (Bld) [Ratio] 0 % 0-5 [facility] MCHC Auto (RBC) [Mass/Vol]Or dered By: Renard Burgos on 05-08-2023 MCHC (RBC) [Mass/Vol] 32.1 g/dL 32-36 [facility] Platelets bldOrdered By: Lyubov Burgos on 05-08-2023 Platelets (Bld) [#/Vol] 226 10*3/uL 150-450 [facility] Absolute lymphocyte countOrd ered By: Renard Burgos on 04-17-2023 Lymphocytes Auto (Unsp spec) [#/Vol] 0.92 10*3/uL 0.83-4.51 [facility] Basophil percentageOrdered B y: Renard Burgos on 04-17-2023 Basophils/100 WBC (Bld) 0.1 % 0-1 [facility] Eosinophils/100 WBC (Bld) 0.0 % 0-5 [facility] Neutrophils (Bld) [#/Vol] 6.0 10*3/uL 2.0-7.7 [facility] Neutrophils/100 WBC (Bld) 81.4 % 47-70 [facility] WBC (Bld) [#/Vol] 7.4 10*3/uL 4.4-11.0 [facility] Blood erythrocytes count (nu mber/volume)Ordered By: Renard Burgos on 04-17-2023 RBC (Bld) [#/Vol] 4.59 10*6/uL 4.6-6.2 [facility] Blood hemoglobin measurement (mass/volume)Ordered By: Renard Burgos on 04-17-2023 Hemoglobin (Bld) [Mass/Vol] 13.7 g/dL 13.0-16.5 [facility] Blood lymphocytes/100 leukoc ytesOrdered By: Renard Burgos on 04-17-2023 Lymphocytes/100 WBC (Bld) 12.5 % 19-41 [facility] Blood monocytes/100 leukocyt esOrdered By: Renard Burgos on 04-17-2023 Monocytes/100 WBC (Bld) 5.6 % 0-10 [facility] Blood platelet mean volumeOr dered By: Renard Burgos on 04-17-2023 Platelet mean volume (Bld) [Entitic vol] 10.9 fL 6.2-12.0 [facility] Determination of erythrocyte mean corpuscular volume (MCV)Ordered By: Renard Bugros on 04-17-2023 MCV (RBC) [Entitic vol] 90.8 fL 80-94 [facility] Hematocrit Auto (Bld) [Volum e fraction]Ordered By: Renard Burgos on 04-17-2023 Hematocrit (Bld) [Volume fraction] 41.7 % 40-54 [facility] Laboratory - Hematology and Cell countsOrdered By: Renard Burgos on 04-17-2023 Erythrocyte distribution width (RBC) [Entitic vol] 42.3 fL 35.1-43.9 [facility] Erythrocyte distribution width (RBC) [Ratio] 12.8 % 11.6-14.6 [facility] Immature granulocytes/100 WBC (Bld) 0.400 % 0.0-0.9 [facility] Comment on above: IG% - Immature Granu locytes (promyelocytes, myelocytes and metamyelocytes) > 1% indicates that a LEFT SHIFT is Present. MCH (RBC) [Entitic mass] 29.8 pg 27.0-32.0 [facility] Nucleated RBC/100 WBC (Bld) [Ratio] 0 % 0-5 [facility] MCHC Auto (RBC) [Mass/Vol]Or dered By: Renard Burgos on 04-17-2023 MCHC (RBC) [Mass/Vol] 32.9 g/dL 32-36 [facility] Platelets bldOrdered By: Pet liyz Burgos on 04-17-2023 Platelets (Bld) [#/Vol] 194 10*3/uL 150-450 [facility] Basophil percentageOrdered B y: Renard Burgos on 04-14-2023 Bilirubin [Mass/Vol] 0.30 mg/dL 0.20-1.00 [facility] Comment on above: For patients on eltr ombopag therapy, use of Dimension [place] TBIL is not recommended. Protein [Mass/Vol] 6.2 g/dL 6.4-8.2 [facility] Direct bilirubinOrdered By: Renard Burgos on 04-14-2023 Bilirubin.direct [Mass/Vol] 0.11 mg/dL 0.00-0.30 [facility] Laboratory - Chemistry and C hemistry - challengeOrdered By: Renard Burgos on 04-14-2023 ALP [Catalytic activity/Vol] 139 U/L 45-117 [facility] ALT [Catalytic activity/Vol] 23 U/L 16-61 [facility] Globulin (S) [Mass/Vol] 3.2 g/dL 2.2-4.2 [facility] Serum or plasma albumin gordy urement (mass/volume)Ordered By: Renard Burgos on 04-14-2023 Albumin [Mass/Vol] 3.0 g/dL 3.2-5.0 [facility] Thin prep Papanicolaou smear with manual screeningOrdered By: Renard Burgos on 04-14-2023 Thin prep Papanicolaou smear with manual screening 14 U/L 15-37 [facility] Absolute lymphocyte countOrd ered By: Renard Burgos on 04-10-2023 Lymphocytes Auto (Unsp spec) [#/Vol] 2.54 10*3/uL 0.83-4.51 [facility] Basophil percentageOrdered B y: Renard Burgos on 04-10-2023 Basophils/100 WBC (Bld) 0.5 % 0-1 [facility] Eosinophils/100 WBC (Bld) 0.5 % 0-5 [facility] Neutrophils (Bld) [#/Vol] 5.1 10*3/uL 2.0-7.7 [facility] Neutrophils/100 WBC (Bld) 59.0 % 47-70 [facility] WBC (Bld) [#/Vol] 8.7 10*3/uL 4.4-11.0 [facility] Blood erythrocytes count (nu mber/volume)Ordered By: Renard Burgos on 04-10-2023 RBC (Bld) [#/Vol] 4.84 10*6/uL 4.6-6.2 [facility] Blood hemoglobin measurement (mass/volume)Ordered By: Renard Burgos on 04-10-2023 Hemoglobin (Bld) [Mass/Vol] 14.2 g/dL 13.0-16.5 [facility] Blood lymphocytes/100 leukoc ytesOrdered By: Renard Burgos on 04-10-2023 Lymphocytes/100 WBC (Bld) 29.4 % 19-41 [facility] Blood monocytes/100 leukocyt esOrdered By: Renard Burgos on 04-10-2023 Monocytes/100 WBC (Bld) 10.3 % 0-10 [facility] Blood platelet mean volumeOr dered By: Renard Burgos on 04-10-2023 Platelet mean volume (Bld) [Entitic vol] 11.1 fL 6.2-12.0 [facility] Determination of erythrocyte mean corpuscular volume (MCV)Ordered By: Renard Burgos on 04-10-2023 MCV (RBC) [Entitic vol] 91.5 fL 80-94 [facility] Hematocrit Auto (Bld) [Volum e fraction]Ordered By: Renard Burgos on 04-10-2023 Hematocrit (Bld) [Volume fraction] 44.3 % 40-54 [facility] Laboratory - Hematology and Cell countsOrdered By: Renard Burgos on 04-10-2023 Erythrocyte distribution width (RBC) [Entitic vol] 41.9 fL 35.1-43.9 [facility] Erythrocyte distribution width (RBC) [Ratio] 12.6 % 11.6-14.6 [facility] Immature granulocytes/100 WBC (Bld) 0.300 % 0.0-0.9 [facility] Comment on above: IG% - Immature Granu locytes (promyelocytes, myelocytes and metamyelocytes) > 1% indicates that a LEFT SHIFT is Present. MCH (RBC) [Entitic mass] 29.3 pg 27.0-32.0 [facility] Nucleated RBC/100 WBC (Bld) [Ratio] 0 % 0-5 [facility] [Mass/Vol]Or dered By: Renard Burgos on 04-10-2023 MCHC (RBC) [Mass/Vol] 32.1 g/dL 32-36 [facility] Platelets bldOrdered By: Lyubov Burgos on 04-10-2023 Platelets (Bld) [#/Vol] 216 10*3/uL 150-450 [facility] Absolute lymphocyte countOrd ered By: Renard Burgos on 04-03-2023 Lymphocytes Auto (Unsp spec) [#/Vol] 1.91 10*3/uL 0.83-4.51 [facility] Basophil percentageOrdered B y: Renard Burgos on 04-03-2023 Basophils/100 WBC (Bld) 0.5 % 0-1 [facility] Eosinophils/100 WBC (Bld) 0.5 % 0-5 [facility] Neutrophils (Bld) [#/Vol] 5.0 10*3/uL 2.0-7.7 [facility] Neutrophils/100 WBC (Bld) 66.5 % 47-70 [facility] WBC (Bld) [#/Vol] 7.6 10*3/uL 4.4-11.0 [facility] Blood erythrocytes count (nu mber/volume)Ordered By: Renard Burgos on 04-03-2023 RBC (Bld) [#/Vol] 4.62 10*6/uL 4.6-6.2 [facility] Blood hemoglobin measurement (mass/volume)Ordered By: Renard Burgos on 04-03-2023 Hemoglobin (Bld) [Mass/Vol] 13.7 g/dL 13.0-16.5 [facility] Blood lymphocytes/100 leukoc ytesOrdered By: Renard Burgos on 04-03-2023 Lymphocytes/100 WBC (Bld) 25.2 % 19-41 [facility] Blood monocytes/100 leukocyt esOrdered By: Renard Burgos on 04-03-2023 Monocytes/100 WBC (Bld) 6.9 % 0-10 [facility] Blood platelet mean volumeOr dered By: Renard Burgos on 04-03-2023 Platelet mean volume (Bld) [Entitic vol] 10.8 fL 6.2-12.0 [facility] Determination of erythrocyte mean corpuscular volume (MCV)Ordered By: Renard Burgos on 04-03-2023 MCV (RBC) [Entitic vol] 91.6 fL 80-94 [facility] Hematocrit Auto (Bld) [Volum e fraction]Ordered By: Renard Burgos on 04-03-2023 Hematocrit (Bld) [Volume fraction] 42.3 % 40-54 [facility] Laboratory - Hematology and Cell countsOrdered By: Renard Burgos on 04-03-2023 Erythrocyte distribution width (RBC) [Entitic vol] 42.6 fL 35.1-43.9 [facility] Erythrocyte distribution width (RBC) [Ratio] 12.8 % 11.6-14.6 [facility] Immature granulocytes/100 WBC (Bld) 0.400 % 0.0-0.9 [facility] Comment on above: IG% - Immature Granu locytes (promyelocytes, myelocytes and metamyelocytes) > 1% indicates that a LEFT SHIFT is Present. MCH (RBC) [Entitic mass] 29.7 pg 27.0-32.0 [facility] Nucleated RBC/100 WBC (Bld) [Ratio] 0 % 0-5 [facility] MCHC Auto (RBC) [Mass/Vol]Or dered By: Renard Burgos on 04-03-2023 MCHC (RBC) [Mass/Vol] 32.4 g/dL 32-36 [facility] Platelets bldOrdered By: Lyubov Burgos on 04-03-2023 Platelets (Bld) [#/Vol] 216 10*3/uL 150-450 [facility] Absolute lymphocyte countOrd ered By: Renard Burgos on 03-27-2023 Lymphocytes Auto (Unsp spec) [#/Vol] 2.06 10*3/uL 0.83-4.51 [facility] Basophil percentageOrdered B y: Renard Burgos on 03-27-2023 Basophils/100 WBC (Bld) 0.4 % 0-1 [facility] Eosinophils/100 WBC (Bld) 0.2 % 0-5 [facility] Neutrophils (Bld) [#/Vol] 6.3 10*3/uL 2.0-7.7 [facility] Neutrophils/100 WBC (Bld) 68.8 % 47-70 [facility] WBC (Bld) [#/Vol] 9.1 10*3/uL 4.4-11.0 [facility] Blood erythrocytes count (nu mber/volume)Ordered By: Renard Burgos on 03-27-2023 RBC (Bld) [#/Vol] 4.51 10*6/uL 4.6-6.2 [facility] Blood hemoglobin measurement (mass/volume)Ordered By: Renard Burgos on 03-27-2023 Hemoglobin (Bld) [Mass/Vol] 13.2 g/dL 13.0-16.5 [facility] Blood lymphocytes/100 leukoc ytesOrdered By: Renard Burgos on 03-27-2023 Lymphocytes/100 WBC (Bld) 22.6 % 19-41 [facility] Blood monocytes/100 leukocyt esOrdered By: Renard Burgos on 03-27-2023 Monocytes/100 WBC (Bld) 7.3 % 0-10 [facility] Blood platelet mean volumeOr dered By: Renard Burgos on 03-27-2023 Platelet mean volume (Bld) [Entitic vol] 10.8 fL 6.2-12.0 [facility] Determination of erythrocyte mean corpuscular volume (MCV)Ordered By: Renard Burgos on 03-27-2023 MCV (RBC) [Entitic vol] 91.6 fL 80-94 [facility] Hematocrit Auto (Bld) [Volum e fraction]Ordered By: Renard Burgos on 03-27-2023 Hematocrit (Bld) [Volume fraction] 41.3 % 40-54 [facility] Laboratory - Hematology and Cell countsOrdered By: Renard Burgos on 03-27-2023 Erythrocyte distribution width (RBC) [Entitic vol] 42.9 fL 35.1-43.9 [facility] Erythrocyte distribution width (RBC) [Ratio] 12.9 % 11.6-14.6 [facility] Immature granulocytes/100 WBC (Bld) 0.700 % 0.0-0.9 [facility] Comment on above: IG% - Immature Granu locytes (promyelocytes, myelocytes and metamyelocytes) > 1% indicates that a LEFT SHIFT is Present. MCH (RBC) [Entitic mass] 29.3 pg 27.0-32.0 [facility] Nucleated RBC/100 WBC (Bld) [Ratio] 0 % 0-5 [facility] MCHC Auto (RBC) [Mass/Vol]Or dered By: Renard Burgos on 03-27-2023 MCHC (RBC) [Mass/Vol] 32.0 g/dL 32-36 [facility] Platelets bldOrdered By: Lyubov Burgos on 03-27-2023 Platelets (Bld) [#/Vol] 205 10*3/uL 150-450 [facility] Absolute lymphocyte countOrd ered By: Renard Burgos on 03-20-2023 Lymphocytes Auto (Unsp spec) [#/Vol] 1.89 10*3/uL 0.83-4.51 [facility] Basophil percentageOrdered B y: Renard Burgos on 03-20-2023 Basophils/100 WBC (Bld) 0.5 % 0-1 [facility] Chloride [Moles/Vol] 107 mmol/L 98-107 [facility] Eosinophils/100 WBC (Bld) 0.4 % 0-5 [facility] Glucose [Mass/Vol] 124 mg/dL 74-106 [facility] Comment on above: Fasting Glucose resu lt from 100 to 125 mg/dL suggests IMPAIRED HOMEOSTASIS per A.D.A. criteria. Neutrophils (Bld) [#/Vol] 4.8 10*3/uL 2.0-7.7 [facility] Neutrophils/100 WBC (Bld) 64.9 % 47-70 [facility] Potassium [Moles/Vol] 3.6 mmol/L 3.5-5.1 [facility] Sodium [Moles/Vol] 142 mmol/L 136-145 [facility] WBC (Bld) [#/Vol] 7.4 10*3/uL 4.4-11.0 [facility] Blood erythrocytes count (nu mber/volume)Ordered By: Renard Burgos on 03-20-2023 RBC (Bld) [#/Vol] 4.63 10*6/uL 4.6-6.2 [facility] Blood hemoglobin measurement (mass/volume)Ordered By: Renard Burgos on 03-20-2023 Hemoglobin (Bld) [Mass/Vol] 13.7 g/dL 13.0-16.5 [facility] Blood lymphocytes/100 leukoc ytesOrdered By: Renard Burgos on 03-20-2023 Lymphocytes/100 WBC (Bld) 25.7 % 19-41 [facility] Blood monocytes/100 leukocyt esOrdered By: Renard Burgos on 03-20-2023 Monocytes/100 WBC (Bld) 8.2 % 0-10 [facility] Blood platelet mean volumeOr dered By: Renard Burgos on 03-20-2023 Platelet mean volume (Bld) [Entitic vol] 10.7 fL 6.2-12.0 [facility] Determination of erythrocyte mean corpuscular volume (MCV)Ordered By: Renard Burgos on 03-20-2023 MCV (RBC) [Entitic vol] 90.9 fL 80-94 [facility] Hematocrit Auto (Bld) [Volum e fraction]Ordered By: Renard Burgos on 03-20-2023 Hematocrit (Bld) [Volume fraction] 42.1 % 40-54 [facility] - Chemistry and C hemistry - challengeOrdered By: Renard Burgos on 03-20-2023 CO2 [Moles/Vol] 29.0 mmol/L 21.0-32.0 [facility] Urea nitrogen/Creatinine [Mass ratio] 30.7 mg/mg 10-20 [facility] - Hematology and Cell countsOrdered By: Renard Burgos on 03-20-2023 Erythrocyte distribution width (RBC) [Entitic vol] 43.0 fL 35.1-43.9 [facility] Erythrocyte distribution width (RBC) [Ratio] 12.9 % 11.6-14.6 [facility] Immature granulocytes/100 WBC (Bld) 0.300 % 0.0-0.9 [facility] Comment on above: IG% - Immature Granu locytes (promyelocytes, myelocytes and metamyelocytes) > 1% indicates that a LEFT SHIFT is Present. MCH (RBC) [Entitic mass] 29.6 pg 27.0-32.0 [facility] Nucleated RBC/100 WBC (Bld) [Ratio] 0 % 0-5 [facility] MCHC Auto (RBC) [Mass/Vol]Or dered By: Renard Burgos on 03-20-2023 MCHC (RBC) [Mass/Vol] 32.5 g/dL 32-36 [facility] No Panel InformationOrdered By: Renard Burgos on 03-20-2023 Estimated GFR (MDRD) Amer 178 mL/min >60 [facility] Comment on above: GFR Calc Estimated GFR (MDRD) Non-Af Amer 147 mL/min >60 [facility] Comment on above: Non- GFR Calc Platelets bldOrdered By: Lyubov Burgos on 03-20-2023 Platelets (Bld) [#/Vol] 208 10*3/uL 150-450 [facility] Serum or plasma calcium gordy urement (mass/volume)Ordered By: Renard Burgos on 03-20-2023 Calcium [Mass/Vol] 8.1 mg/dL 8.5-10.1 [facility] Serum or plasma creatinine m easurement (mass/volume)Ordered By: Renard Burgos on 03-20-2023 Creatinine [Mass/Vol] 0.59 mg/dL 0.70-1.30 [facility] Comment on above: The validity of the calculated GFR & GFRAA in patients over 70 years has not been determined. Clinical correlation is essential. Serum or plasma urea nitroge n measurement (mass/volume)Ordered By: Renard Burgos on 03-20-2023 Urea nitrogen [Mass/Vol] 18 mg/dL 7-18 [facility] Thin prep Papanicolaou smear with manual screeningOrdered By: Renard Burgos on 03-20-2023 Thin prep Papanicolaou smear with manual screening 6 5-15 [facility] Erythrocyte sedimentation ra teOrdered By: Renard Burgos on 03-16-2023 ESR (Bld) [Velocity] 3 mm/h 0-20 [facility] Absolute lymphocyte countOrd ered By: Renard Burgos on 03-13-2023 Lymphocytes Auto (Unsp spec) [#/Vol] 2.36 10*3/uL 0.83-4.51 [facility] Basophil percentageOrdered B y: Renard Burgos on 03-13-2023 Basophils/100 WBC (Bld) 0.5 % 0-1 [facility] Eosinophils/100 WBC (Bld) 0.5 % 0-5 [facility] Neutrophils (Bld) [#/Vol] 5.2 10*3/uL 2.0-7.7 [facility] Neutrophils/100 WBC (Bld) 61.3 % 47-70 [facility] WBC (Bld) [#/Vol] 8.5 10*3/uL 4.4-11.0 [facility] Blood erythrocytes count (nu mber/volume)Ordered By: Renard Burgos on 03-13-2023 RBC (Bld) [#/Vol] 4.55 10*6/uL 4.6-6.2 [facility] Blood hemoglobin measurement (mass/volume)Ordered By: Renard Burgos on 03-13-2023 Hemoglobin (Bld) [Mass/Vol] 13.4 g/dL 13.0-16.5 [facility] Blood lymphocytes/100 leukoc ytesOrdered By: Renard Burgos on 03-13-2023 Lymphocytes/100 WBC (Bld) 27.7 % 19-41 [facility] Blood monocytes/100 leukocyt esOrdered By: Renard Burgos on 03-13-2023 Monocytes/100 WBC (Bld) 9.5 % 0-10 [facility] Blood platelet mean volumeOr dered By: Renard Burgos on 03-13-2023 Platelet mean volume (Bld) [Entitic vol] 10.6 fL 6.2-12.0 [facility] Determination of erythrocyte mean corpuscular volume (MCV)Ordered By: Renard Burgos on 03-13-2023 MCV (RBC) [Entitic vol] 93.4 fL 80-94 [facility] Hematocrit Auto (Bld) [Volum e fraction]Ordered By: Renard Burgos on 03-13-2023 Hematocrit (Bld) [Volume fraction] 42.5 % 40-54 [facility] - Hematology and Cell countsOrdered By: Renard Burgos on 03-13-2023 Erythrocyte distribution width (RBC) [Entitic vol] 44.1 fL 35.1-43.9 [facility] Erythrocyte distribution width (RBC) [Ratio] 13.0 % 11.6-14.6 [facility] Immature granulocytes/100 WBC (Bld) 0.500 % 0.0-0.9 [facility] Comment on above: IG% - Immature Granu locytes (promyelocytes, myelocytes and metamyelocytes) > 1% indicates that a LEFT SHIFT is Present. MCH (RBC) [Entitic mass] 29.5 pg 27.0-32.0 [facility] Nucleated RBC/100 WBC (Bld) [Ratio] 0 % 0-5 [facility] MCHC Auto (RBC) [Mass/Vol]Or dered By: Renard Burgos on 03-13-2023 MCHC (RBC) [Mass/Vol] 31.5 g/dL 32-36 [facility] Platelets bldOrdered By: Lyubov Burgos on 03-13-2023 Platelets (Bld) [#/Vol] 200 10*3/uL 150-450 [facility] Absolute lymphocyte countOrd ered By: Renard Burgos on 03-06-2023 Lymphocytes Auto (Unsp spec) [#/Vol] 1.80 10*3/uL 0.83-4.51 [facility] Basophil percentageOrdered B y: Renard Burogs on 03-06-2023 Basophils/100 WBC (Bld) 0.5 % 0-1 [facility] Bilirubin [Mass/Vol] 0.40 mg/dL 0.20-1.00 [facility] Comment on above: For patients on eltr ombopag therapy, use of Dimension [place] TBIL is not recommended. Chloride [Moles/Vol] 107 mmol/L 98-107 [facility] Cholesterol [Mass/Vol] 118 mg/dL <200 [facility] Comment on above: <200 mg/dL Desirable 200-240 mg/dL Borderline >240 mg/dL High Risk Eosinophils/100 WBC (Bld) 0.5 % 0-5 [facility] Glucose [Mass/Vol] 107 mg/dL 74-106 [facility] Comment on above: Fasting Glucose resu lt from 100 to 125 mg/dL suggests IMPAIRED HOMEOSTASIS per A.D.A. criteria. Neutrophils (Bld) [#/Vol] 5.5 10*3/uL 2.0-7.7 [facility] Neutrophils/100 WBC (Bld) 68.0 % 47-70 [facility] Potassium [Moles/Vol] 3.8 mmol/L 3.5-5.1 [facility] Protein [Mass/Vol] 6.3 g/dL 6.4-8.2 [facility] Sodium [Moles/Vol] 141 mmol/L 136-145 [facility] Triglyceride [Mass/Vol] 185 mg/dL <199 [facility] Comment on above: The drugs N-Acetylcy steine and Metamizole may falsely depress this assay.Serum Triglycerides Reference Interval Normal <150 mg/dL Borderline high 150 - 199 mg/dL High 200 - 499 mg/dL Very High > or = 500 mg/dL WBC (Bld) [#/Vol] 8.1 10*3/uL 4.4-11.0 [facility] Blood erythrocytes count (nu mber/volume)Ordered By: Renard Burgos on 03-06-2023 RBC (Bld) [#/Vol] 4.69 10*6/uL 4.6-6.2 [facility] Blood hemoglobin measurement (mass/volume)Ordered By: Renard Burgos on 03-06-2023 Hemoglobin (Bld) [Mass/Vol] 14.0 g/dL 13.0-16.5 [facility] Blood lymphocytes/100 leukoc ytesOrdered By: Renard Burgos on 03-06-2023 Lymphocytes/100 WBC (Bld) 22.3 % 19-41 [facility] Blood monocytes/100 leukocyt esOrdered By: Renard Burgos on 03-06-2023 Monocytes/100 WBC (Bld) 8.2 % 0-10 [facility] Blood platelet mean volumeOr dered By: Renard Burgos on 03-06-2023 Platelet mean volume (Bld) [Entitic vol] 10.9 fL 6.2-12.0 [facility] Determination of erythrocyte mean corpuscular volume (MCV)Ordered By: Renard Burgos on 03-06-2023 MCV (RBC) [Entitic vol] 91.9 fL 80-94 [facility] Hematocrit Auto (Bld) [Volum e fraction]Ordered By: Renard Burgos on 03-06-2023 Hematocrit (Bld) [Volume fraction] 43.1 % 40-54 [facility] - Chemistry and C hemistry - challengeOrdered By: Renard Burgos on 03-06-2023 ALP [Catalytic activity/Vol] 120 U/L 45-117 [facility] ALT [Catalytic activity/Vol] 20 U/L 16-61 [facility] CO2 [Moles/Vol] 30.0 mmol/L 21.0-32.0 [facility] Globulin (S) [Mass/Vol] 3.3 g/dL 2.2-4.2 [facility] Urea nitrogen/Creatinine [Mass ratio] 27.1 mg/mg 10-20 [facility] - Hematology and Cell countsOrdered By: Renard Burgos on 03-06-2023 Erythrocyte distribution width (RBC) [Entitic vol] 42.5 fL 35.1-43.9 [facility] Erythrocyte distribution width (RBC) [Ratio] 12.9 % 11.6-14.6 [facility] Immature granulocytes/100 WBC (Bld) 0.500 % 0.0-0.9 [facility] Comment on above: IG% - Immature Granu locytes (promyelocytes, myelocytes and metamyelocytes) > 1% indicates that a LEFT SHIFT is Present. MCH (RBC) [Entitic mass] 29.9 pg 27.0-32.0 [facility] Nucleated RBC/100 WBC (Bld) [Ratio] 0 % 0-5 [facility] MCHC Auto (RBC) [Mass/Vol]Or dered By: Renard Burgos on 03-06-2023 MCHC (RBC) [Mass/Vol] 32.5 g/dL 32-36 [facility] No Panel InformationOrdered By: Renard Burgos on 03-06-2023 Estimated GFR (MDRD) Amer 165 mL/min >60 [facility] Comment on above: GFR Calc Estimated GFR (MDRD) Non-Af Amer 136 mL/min >60 [facility] Comment on above: Non- GFR Calc Platelets bldOrdered By: Lyubov Burgos on 03-06-2023 Platelets (Bld) [#/Vol] 232 10*3/uL 150-450 [facility] Serum or plasma albumin gordy urement (mass/volume)Ordered By: Renard Burgos on 03-06-2023 Albumin [Mass/Vol] 3.0 g/dL 3.2-5.0 [facility] Serum or plasma albumin/glob ulin mass ratioOrdered By: Renard Burgos on 03-06-2023 Albumin/Globulin [Mass ratio] 0.9 {ratio} 0.9-2.4 [facility] Serum or plasma calcium gordy urement (mass/volume)Ordered By: Renard Burgos on 03-06-2023 Calcium [Mass/Vol] 8.2 mg/dL 8.5-10.1 [facility] Serum or plasma cholesterol in HDL measurement (mass/volume)Ordered By: Renard Burgos on 03-06-2023 Cholesterol in HDL [Mass/Vol] 25 mg/dL >40 [facility] Comment on above: The drugs N-Acetylcy steine and Metamizole may falsely depress this assay. Reference Range HDL <40 mg/dL Low HDL Cholesterol HDL >or= 60 mg/dL High HDL Cholesterol Serum or plasma cholesterol in VLDL measurement (mass/volume)Ordered By: Renard Burgos on 03-06-2023 Cholesterol in VLDL [Mass/Vol] 37 mg/dL 5-40 [facility] Serum or plasma creatinine m easurement (mass/volume)Ordered By: Renard Burgos on 03-06-2023 Creatinine [Mass/Vol] 0.63 mg/dL 0.70-1.30 [facility] Comment on above: The validity of the calculated GFR & GFRAA in patients over 70 years has not been determined. Clinical correlation is essential. Serum or plasma low density lipoprotein (LDL) cholesterol measurement (mass/volume)Ordered By: Renard Burgos on 03-06-2023 Cholesterol in LDL [Mass/Vol] 56 mg/dL 0-130 [facility] Serum or plasma urea nitroge n measurement (mass/volume)Ordered By: Renard Burgos on 03-06-2023 Urea nitrogen [Mass/Vol] 17 mg/dL 7-18 [facility] Thin prep Papanicolaou smear with manual screeningOrdered By: Renard Burgos on 03-06-2023 Thin prep Papanicolaou smear with manual screening 10 U/L 15-37 [facility] Thin prep Papanicolaou smear with manual screening 4 5-15 [facility] Absolute lymphocyte countOrd ered By: Renard Burgos on 02-27-2023 Lymphocytes Auto (Unsp spec) [#/Vol] 2.13 10*3/uL 0.83-4.51 [facility] Basophil percentageOrdered B y: Renard Burgos on 02-27-2023 Basophils/100 WBC (Bld) 0.6 % 0-1 [facility] Eosinophils/100 WBC (Bld) 0.6 % 0-5 [facility] Neutrophils (Bld) [#/Vol] 5.1 10*3/uL 2.0-7.7 [facility] Neutrophils/100 WBC (Bld) 63.3 % 47-70 [facility] WBC (Bld) [#/Vol] 8.1 10*3/uL 4.4-11.0 [facility] Blood erythrocytes count (nu mber/volume)Ordered By: Renard Burgos on 02-27-2023 RBC (Bld) [#/Vol] 4.54 10*6/uL 4.6-6.2 [facility] Blood hemoglobin measurement (mass/volume)Ordered By: Renard Burgos on 02-27-2023 Hemoglobin (Bld) [Mass/Vol] 13.7 g/dL 13.0-16.5 [facility] Blood lymphocytes/100 leukoc ytesOrdered By: Renard Burgos on 02-27-2023 Lymphocytes/100 WBC (Bld) 26.4 % 19-41 [facility] Blood monocytes/100 leukocyt esOrdered By: Renard Burgos on 02-27-2023 Monocytes/100 WBC (Bld) 8.7 % 0-10 [facility] Blood platelet mean volumeOr dered By: Renard Burgos on 02-27-2023 Platelet mean volume (Bld) [Entitic vol] 10.8 fL 6.2-12.0 [facility] Determination of erythrocyte mean corpuscular volume (MCV)Ordered By: Renard Burgos on 02-27-2023 MCV (RBC) [Entitic vol] 89.9 fL 80-94 [facility] Hematocrit Auto (Bld) [Volum e fraction]Ordered By: Renard Burgos on 02-27-2023 Hematocrit (Bld) [Volume fraction] 40.8 % 40-54 [facility] - Hematology and Cell countsOrdered By: Renard Burgos on 02-27-2023 Erythrocyte distribution width (RBC) [Entitic vol] 41.0 fL 35.1-43.9 [facility] Erythrocyte distribution width (RBC) [Ratio] 12.5 % 11.6-14.6 [facility] Immature granulocytes/100 WBC (Bld) 0.400 % 0.0-0.9 [facility] Comment on above: IG% - Immature Granu locytes (promyelocytes, myelocytes and metamyelocytes) > 1% indicates that a LEFT SHIFT is Present. MCH (RBC) [Entitic mass] 30.2 pg 27.0-32.0 [facility] Nucleated RBC/100 WBC (Bld) [Ratio] 0 % 0-5 [facility] MCHC Auto (RBC) [Mass/Vol]Or dered By: Renard Burgos on 02-27-2023 MCHC (RBC) [Mass/Vol] 33.6 g/dL 32-36 [facility] Platelets bldOrdered By: Lyubov Burgos on 02-27-2023 Platelets (Bld) [#/Vol] 182 10*3/uL 150-450 [facility] Absolute lymphocyte countOrd ered By: Renard Burgos on 02-20-2023 Lymphocytes Auto (Unsp spec) [#/Vol] 2.23 10*3/uL 0.83-4.51 [facility] Basophil percentageOrdered B y: Renard Burgos on 02-20-2023 Basophils/100 WBC (Bld) 0.3 % 0-1 [facility] Eosinophils/100 WBC (Bld) 0.7 % 0-5 [facility] Neutrophils (Bld) [#/Vol] 5.9 10*3/uL 2.0-7.7 [facility] Neutrophils/100 WBC (Bld) 65.7 % 47-70 [facility] WBC (Bld) [#/Vol] 9.0 10*3/uL 4.4-11.0 [facility] Blood erythrocytes count (nu mber/volume)Ordered By: Renadr Burgos on 02-20-2023 RBC (Bld) [#/Vol] 4.46 10*6/uL 4.6-6.2 [facility] Blood hemoglobin measurement (mass/volume)Ordered By: Renard Burgos on 02-20-2023 Hemoglobin (Bld) [Mass/Vol] 13.3 g/dL 13.0-16.5 [facility] Blood lymphocytes/100 leukoc ytesOrdered By: Renard Burgos on 02-20-2023 Lymphocytes/100 WBC (Bld) 24.7 % 19-41 [facility] Blood monocytes/100 leukocyt esOrdered By: Renard Burgos on 02-20-2023 Monocytes/100 WBC (Bld) 8.0 % 0-10 [facility] Blood platelet mean volumeOr dered By: Renard Burgos on 02-20-2023 Platelet mean volume (Bld) [Entitic vol] 10.7 fL 6.2-12.0 [facility] Determination of erythrocyte mean corpuscular volume (MCV)Ordered By: Renard Burgos on 02-20-2023 MCV (RBC) [Entitic vol] 90.6 fL 80-94 [facility] Hematocrit Auto (Bld) [Volum e fraction]Ordered By: Renard Burgos on 02-20-2023 Hematocrit (Bld) [Volume fraction] 40.4 % 40-54 [facility] - Hematology and Cell countsOrdered By: Renard Burgos on 02-20-2023 Erythrocyte distribution width (RBC) [Entitic vol] 41.9 fL 35.1-43.9 [facility] Erythrocyte distribution width (RBC) [Ratio] 12.8 % 11.6-14.6 [facility] Immature granulocytes/100 WBC (Bld) 0.600 % 0.0-0.9 [facility] Comment on above: IG% - Immature Granu locytes (promyelocytes, myelocytes and metamyelocytes) > 1% indicates that a LEFT SHIFT is Present. MCH (RBC) [Entitic mass] 29.8 pg 27.0-32.0 [facility] Nucleated RBC/100 WBC (Bld) [Ratio] 0 % 0-5 [facility] MCHC Auto (RBC) [Mass/Vol]Or dered By: Renard Burgos on 02-20-2023 MCHC (RBC) [Mass/Vol] 32.9 g/dL 32-36 [facility] Platelets bldOrdered By: Lyubov Burgos on 02-20-2023 Platelets (Bld) [#/Vol] 220 10*3/uL 150-450 [facility] Absolute lymphocyte countOrd ered By: Renard Burgos on 02-13-2023 Lymphocytes Auto (Unsp spec) [#/Vol] 2.01 10*3/uL 0.83-4.51 [facility] Basophil percentageOrdered B y: Renard Burgos on 02-13-2023 Basophils/100 WBC (Bld) 0.7 % 0-1 [facility] Eosinophils/100 WBC (Bld) 0.5 % 0-5 [facility] Neutrophils (Bld) [#/Vol] 4.7 10*3/uL 2.0-7.7 [facility] Neutrophils/100 WBC (Bld) 63.3 % 47-70 [facility] WBC (Bld) [#/Vol] 7.4 10*3/uL 4.4-11.0 [facility] Blood erythrocytes count (nu mber/volume)Ordered By: Renard Burgos on 02-13-2023 RBC (Bld) [#/Vol] 4.46 10*6/uL 4.6-6.2 [facility] Blood hemoglobin measurement (mass/volume)Ordered By: Renard Burgos on 02-13-2023 Hemoglobin (Bld) [Mass/Vol] 13.6 g/dL 13.0-16.5 [facility] Blood lymphocytes/100 leukoc ytesOrdered By: Renard Burgos on 02-13-2023 Lymphocytes/100 WBC (Bld) 27.0 % 19-41 [facility] Blood monocytes/100 leukocyt esOrdered By: Renard Burgos on 02-13-2023 Monocytes/100 WBC (Bld) 8.1 % 0-10 [facility] Blood platelet mean volumeOr dered By: Renard Burgos on 02-13-2023 Platelet mean volume (Bld) [Entitic vol] 10.7 fL 6.2-12.0 [facility] Determination of erythrocyte mean corpuscular volume (MCV)Ordered By: Renard Burgos on 02-13-2023 MCV (RBC) [Entitic vol] 92.6 fL 80-94 [facility] Hematocrit Auto (Bld) [Volum e fraction]Ordered By: Renard Burgos on 02-13-2023 Hematocrit (Bld) [Volume fraction] 41.3 % 40-54 [facility] - Hematology and Cell countsOrdered By: Renard Burgos on 02-13-2023 Erythrocyte distribution width (RBC) [Entitic vol] 42.7 fL 35.1-43.9 [facility] Erythrocyte distribution width (RBC) [Ratio] 12.6 % 11.6-14.6 [facility] Immature granulocytes/100 WBC (Bld) 0.400 % 0.0-0.9 [facility] Comment on above: IG% - Immature Granu locytes (promyelocytes, myelocytes and metamyelocytes) > 1% indicates that a LEFT SHIFT is Present. MCH (RBC) [Entitic mass] 30.5 pg 27.0-32.0 [facility] Nucleated RBC/100 WBC (Bld) [Ratio] 0 % 0-5 [facility] MCHC Auto (RBC) [Mass/Vol]Or dered By: Renard Burgos on 02-13-2023 MCHC (RBC) [Mass/Vol] 32.9 g/dL 32-36 [facility] Platelets bldOrdered By: Lyubov Burgos on 02-13-2023 Platelets (Bld) [#/Vol] 187 10*3/uL 150-450 [facility] Absolute lymphocyte countOrd ered By: Renard Burgos on 02-06-2023 Lymphocytes Auto (Unsp spec) [#/Vol] 2.28 10*3/uL 0.83-4.51 [facility] Basophil percentageOrdered B y: Renard Burgos on 02-06-2023 Basophils/100 WBC (Bld) 0.5 % 0-1 [facility] Eosinophils/100 WBC (Bld) 0.7 % 0-5 [facility] Neutrophils (Bld) [#/Vol] 5.5 10*3/uL 2.0-7.7 [facility] Neutrophils/100 WBC (Bld) 63.7 % 47-70 [facility] WBC (Bld) [#/Vol] 8.6 10*3/uL 4.4-11.0 [facility] Blood erythrocytes count (nu mber/volume)Ordered By: Renard Burgos on 02-06-2023 RBC (Bld) [#/Vol] 4.71 10*6/uL 4.6-6.2 [facility] Blood hemoglobin measurement (mass/volume)Ordered By: Renard Burgos on 02-06-2023 Hemoglobin (Bld) [Mass/Vol] 14.1 g/dL 13.0-16.5 [facility] Blood lymphocytes/100 leukoc ytesOrdered By: Renard Burgos on 02-06-2023 Lymphocytes/100 WBC (Bld) 26.4 % 19-41 [facility] Blood monocytes/100 leukocyt esOrdered By: Renard Burgos on 02-06-2023 Monocytes/100 WBC (Bld) 8.2 % 0-10 [facility] Blood platelet mean volumeOr dered By: Renard Burgos on 02-06-2023 Platelet mean volume (Bld) [Entitic vol] 11.0 fL 6.2-12.0 [facility] Determination of erythrocyte mean corpuscular volume (MCV)Ordered By: Renard Burgos on 02-06-2023 MCV (RBC) [Entitic vol] 94.5 fL 80-94 [facility] Hematocrit Auto (Bld) [Volum e fraction]Ordered By: Renard Burgos on 02-06-2023 Hematocrit (Bld) [Volume fraction] 44.5 % 40-54 [facility] - Hematology and Cell countsOrdered By: Renard Burgos on 02-06-2023 Erythrocyte distribution width (RBC) [Entitic vol] 43.5 fL 35.1-43.9 [facility] Erythrocyte distribution width (RBC) [Ratio] 12.7 % 11.6-14.6 [facility] Immature granulocytes/100 WBC (Bld) 0.500 % 0.0-0.9 [facility] Comment on above: IG% - Immature Granu locytes (promyelocytes, myelocytes and metamyelocytes) > 1% indicates that a LEFT SHIFT is Present. MCH (RBC) [Entitic mass] 29.9 pg 27.0-32.0 [facility] Nucleated RBC/100 WBC (Bld) [Ratio] 0 % 0-5 [facility] MCHC Auto (RBC) [Mass/Vol]Or dered By: Renard Burgos on 02-06-2023 MCHC (RBC) [Mass/Vol] 31.7 g/dL 32-36 [facility] Platelets bldOrdered By: Pet lizy Burgos on 02-06-2023 Platelets (Bld) [#/Vol] 196 10*3/uL 150-450 [facility] Absolute lymphocyte countOrd ered By: Renard Burgos on 01-30-2023 Lymphocytes Auto (Unsp spec) [#/Vol] 1.91 10*3/uL 0.83-4.51 [facility] Basophil percentageOrdered B y: Renard Burgos on 01-30-2023 Basophils/100 WBC (Bld) 0.5 % 0-1 [facility] Eosinophils/100 WBC (Bld) 0.5 % 0-5 [facility] Neutrophils (Bld) [#/Vol] 6.0 10*3/uL 2.0-7.7 [facility] Neutrophils/100 WBC (Bld) 69.4 % 47-70 [facility] WBC (Bld) [#/Vol] 8.7 10*3/uL 4.4-11.0 [facility] Basophil percentage 0 SEEN /hpf 0-5 [facility] Bilirubin Test strip Ql (U)O rdered By: Renard Burgos on 01-30-2023 Bilirubin Ql (U) Negative Negative [facility] Blood erythrocytes count (nu mber/volume)Ordered By: Renard Burgos on 01-30-2023 RBC (Bld) [#/Vol] 4.50 10*6/uL 4.6-6.2 [facility] Blood hemoglobin measurement (mass/volume)Ordered By: Renard Burgos on 01-30-2023 Hemoglobin (Bld) [Mass/Vol] 13.5 g/dL 13.0-16.5 [facility] Blood lymphocytes/100 leukoc ytesOrdered By: Renard Burgos on 01-30-2023 Lymphocytes/100 WBC (Bld) 22.1 % 19-41 [facility] Blood monocytes/100 leukocyt esOrdered By: Renard Burgos on 01-30-2023 Monocytes/100 WBC (Bld) 7.2 % 0-10 [facility] Blood platelet mean volumeOr dered By: Renard Burgos on 01-30-2023 Platelet mean volume (Bld) [Entitic vol] 11.1 fL 6.2-12.0 [facility] Culture, urineOrdered By: Garrick Bhatt on 01-30-2023 Bacteria identified Cx Nom (U) Positive [facility] Determination of erythrocyte mean corpuscular volume (MCV)Ordered By: Renard Burgos on 01-30-2023 MCV (RBC) [Entitic vol] 91.3 fL 80-94 [facility] Hematocrit Auto (Bld) [Volum e fraction]Ordered By: Renard Burgos on 01-30-2023 Hematocrit (Bld) [Volume fraction] 41.1 % 40-54 [facility] Ketones Test strip Ql (U)Ord ered By: Renard Burgos on 01-30-2023 Ketones Ql (U) Negative Negative [facility] - Hematology and Cell countsOrdered By: Renard Burgos on 01-30-2023 Erythrocyte distribution width (RBC) [Entitic vol] 41.4 fL 35.1-43.9 [facility] Erythrocyte distribution width (RBC) [Ratio] 12.6 % 11.6-14.6 [facility] Immature granulocytes/100 WBC (Bld) 0.300 % 0.0-0.9 [facility] Comment on above: IG% - Immature Granu locytes (promyelocytes, myelocytes and metamyelocytes) > 1% indicates that a LEFT SHIFT is Present. MCH (RBC) [Entitic mass] 30.0 pg 27.0-32.0 [facility] Nucleated RBC/100 WBC (Bld) [Ratio] 0 % 0-5 [facility] MCHC Auto (RBC) [Mass/Vol]Or dered By: Renard Burgos on 01-30-2023 MCHC (RBC) [Mass/Vol] 32.8 g/dL 32-36 [facility] Mucus LM Ql (Urine sed)Order ed By: Renard Burgos on 01-30-2023 Mucus Ql (Urine sed) 0 SEEN /hpf [facility] Nitrite Test strip Ql (U)Ord ered By: Renard Burgos on 01-30-2023 Nitrite Ql (U) Negative Negative [facility] No Panel InformationOrdered By: Renard Burgos on 01-30-2023 Prostate Specific Antigen Screen 4.18 ng/mL 0.00-4.00 [facility] Comment on above: This test was perfor med using the TPSA assay method for [employer] chemistry system. Values obtained with differentassay methods cannot be used interchangably.When changing PSA assays in the course of monitoring apatient, additional sequential testing should be carriedout to confirm baseline values. Platelets bldOrdered By: Lyubov Burgos on 01-30-2023 Platelets (Bld) [#/Vol] 205 10*3/uL 150-450 [facility] Protein Test strip Ql (U)Ord ered By: Renard Burgos on 01-30-2023 Protein Ql (U) Negative Negative [facility] Squamous epithelial cells de tection in urine sediment by light microscopyOrdered By: Renard Burgos on 01-30-2023 Epithelial cells.squamous LM Ql (Urine sed) 0-5 SEEN /hpf 0-5 [facility] Urine blood detectionOrdered By: Renard Burgos on 01-30-2023 RBC Ql (U) Negative Negative [facility] RBC Ql (U) 0 SEEN /hpf 0-5 [facility] Urine clarityOrdered By: Lyubov Burgos on 01-30-2023 Clarity (U) Clear Clear [facility] Urine color determinationOrd ered By: Renard Burgos on 01-30-2023 Color (U) Yellow Yellow [facility] Urine glucose detectionOrder ed By: Renard Burgos on 01-30-2023 Glucose Ql (U) Normal mg/dl Normal [facility] Urine leukocyte esterase det ection by dipstickOrdered By: Renard Burgos on 01-30-2023 Leukocyte esterase Test strip Ql (U) Negative Negative [facility] Urine pHOrdered By: Renard ocampo on 01-30-2023 pH (U) 8.0 [pH] 5.0 - 8.0 [facility] Urine sediment bacteria coun t by microscopy (number/high power field)Ordered By: Renard Burgos on 01-30-2023 Bacteria LM.HPF (Urine sed) [#/Area] 0 /[HPF] None Seen [facility] Urine specific gravity measu rementOrdered By: Renard Burgos on 01-30-2023 Specific gravity (U) [Rel density] 1.010 1.002-1.030 [facility] Urobilinogen Auto test strip Ql (U)Ordered By: Renard Burgos on 01-30-2023 Urobilinogen Ql (U) Normal mg/dl Normal [facility] Absolute lymphocyte countOrd ered By: Renard Burgos on 01-23-2023 Lymphocytes Auto (Unsp spec) [#/Vol] 2.32 10*3/uL 0.83-4.51 [facility] Basophil percentageOrdered B y: Renard Burgos on 01-23-2023 Basophils/100 WBC (Bld) 0.6 % 0-1 [facility] Eosinophils/100 WBC (Bld) 0.4 % 0-5 [facility] Neutrophils (Bld) [#/Vol] 5.3 10*3/uL 2.0-7.7 [facility] Neutrophils/100 WBC (Bld) 62.7 % 47-70 [facility] WBC (Bld) [#/Vol] 8.4 10*3/uL 4.4-11.0 [facility] Blood erythrocytes count (nu mber/volume)Ordered By: Renard Burgos on 01-23-2023 RBC (Bld) [#/Vol] 4.49 10*6/uL 4.6-6.2 [facility] Blood hemoglobin measurement (mass/volume)Ordered By: Renard Burgos on 01-23-2023 Hemoglobin (Bld) [Mass/Vol] 13.6 g/dL 13.0-16.5 [facility] Blood lymphocytes/100 leukoc ytesOrdered By: Renard Burgos on 01-23-2023 Lymphocytes/100 WBC (Bld) 27.5 % 19-41 [facility] Blood monocytes/100 leukocyt esOrdered By: Renard Burgos on 01-23-2023 Monocytes/100 WBC (Bld) 8.2 % 0-10 [facility] Blood platelet mean volumeOr dered By: Renard Burgos on 01-23-2023 Platelet mean volume (Bld) [Entitic vol] 10.9 fL 6.2-12.0 [facility] Determination of erythrocyte mean corpuscular volume (MCV)Ordered By: Renard Burgos on 01-23-2023 MCV (RBC) [Entitic vol] 93.1 fL 80-94 [facility] Hematocrit Auto (Bld) [Volum e fraction]Ordered By: Renard Burgos on 01-23-2023 Hematocrit (Bld) [Volume fraction] 41.8 % 40-54 [facility] - Hematology and Cell countsOrdered By: Renard Burgos on 01-23-2023 Erythrocyte distribution width (RBC) [Entitic vol] 42.7 fL 35.1-43.9 [facility] Erythrocyte distribution width (RBC) [Ratio] 12.6 % 11.6-14.6 [facility] Immature granulocytes/100 WBC (Bld) 0.600 % 0.0-0.9 [facility] Comment on above: IG% - Immature Granu locytes (promyelocytes, myelocytes and metamyelocytes) > 1% indicates that a LEFT SHIFT is Present. MCH (RBC) [Entitic mass] 30.3 pg 27.0-32.0 [facility] Nucleated RBC/100 WBC (Bld) [Ratio] 0 % 0-5 [facility] MCHC Auto (RBC) [Mass/Vol]Or dered By: Renard Burgos on 01-23-2023 MCHC (RBC) [Mass/Vol] 32.5 g/dL 32-36 [facility] Platelets bldOrdered By: Lyubov Burgos on 01-23-2023 Platelets (Bld) [#/Vol] 220 10*3/uL 150-450 [facility] Absolute lymphocyte countOrd ered By: Renard Burgos on 01-16-2023 Lymphocytes Auto (Unsp spec) [#/Vol] 1.80 10*3/uL 0.83-4.51 [facility] Basophil percentageOrdered B y: Renard Burgos on 01-16-2023 Basophils/100 WBC (Bld) 0.4 % 0-1 [facility] Eosinophils/100 WBC (Bld) 0.4 % 0-5 [facility] Neutrophils (Bld) [#/Vol] 7.2 10*3/uL 2.0-7.7 [facility] Neutrophils/100 WBC (Bld) 73.5 % 47-70 [facility] WBC (Bld) [#/Vol] 9.8 10*3/uL 4.4-11.0 [facility] Blood erythrocytes count (nu mber/volume)Ordered By: Renard Burgos on 01-16-2023 RBC (Bld) [#/Vol] 4.77 10*6/uL 4.6-6.2 [facility] Blood hemoglobin measurement (mass/volume)Ordered By: Renard Burgos on 01-16-2023 Hemoglobin (Bld) [Mass/Vol] 14.1 g/dL 13.0-16.5 [facility] Blood lymphocytes/100 leukoc ytesOrdered By: Renard Burgos on 01-16-2023 Lymphocytes/100 WBC (Bld) 18.4 % 19-41 [facility] Blood monocytes/100 leukocyt esOrdered By: Renard Burgos on 01-16-2023 Monocytes/100 WBC (Bld) 6.9 % 0-10 [facility] Blood platelet mean volumeOr dered By: Renard Burgos on 01-16-2023 Platelet mean volume (Bld) [Entitic vol] 10.6 fL 6.2-12.0 [facility] Determination of erythrocyte mean corpuscular volume (MCV)Ordered By: Renard Burgos on 01-16-2023 MCV (RBC) [Entitic vol] 92.5 fL 80-94 [facility] Hematocrit Auto (Bld) [Volum e fraction]Ordered By: Renard Burgos on 01-16-2023 Hematocrit (Bld) [Volume fraction] 44.1 % 40-54 [facility] - Hematology and Cell countsOrdered By: Renard Burgos on 01-16-2023 Erythrocyte distribution width (RBC) [Entitic vol] 41.8 fL 35.1-43.9 [facility] Erythrocyte distribution width (RBC) [Ratio] 12.4 % 11.6-14.6 [facility] Immature granulocytes/100 WBC (Bld) 0.400 % 0.0-0.9 [facility] Comment on above: IG% - Immature Granu locytes (promyelocytes, myelocytes and metamyelocytes) > 1% indicates that a LEFT SHIFT is Present. MCH (RBC) [Entitic mass] 29.6 pg 27.0-32.0 [facility] Nucleated RBC/100 WBC (Bld) [Ratio] 0 % 0-5 [facility] MCHC Auto (RBC) [Mass/Vol]Or dered By: Renard Burgos on 01-16-2023 MCHC (RBC) [Mass/Vol] 32.0 g/dL 32-36 [facility] Platelets bldOrdered By: Lyubov Burgos on 01-16-2023 Platelets (Bld) [#/Vol] 221 10*3/uL 150-450 [facility] Absolute lymphocyte countOrd ered By: Renard Burgos on 01-09-2023 Lymphocytes Auto (Unsp spec) [#/Vol] 2.41 10*3/uL 0.83-4.51 [facility] Basophil percentageOrdered B y: Renard Burgos on 01-09-2023 Basophils/100 WBC (Bld) 0.7 % 0-1 [facility] Eosinophils/100 WBC (Bld) 0.8 % 0-5 [facility] Neutrophils (Bld) [#/Vol] 5.4 10*3/uL 2.0-7.7 [facility] Neutrophils/100 WBC (Bld) 60.5 % 47-70 [facility] WBC (Bld) [#/Vol] 8.9 10*3/uL 4.4-11.0 [facility] Blood erythrocytes count (nu mber/volume)Ordered By: Renard Burgos on 01-09-2023 RBC (Bld) [#/Vol] 4.56 10*6/uL 4.6-6.2 [facility] Blood hemoglobin measurement (mass/volume)Ordered By: Renard Burgos on 01-09-2023 Hemoglobin (Bld) [Mass/Vol] 13.8 g/dL 13.0-16.5 [facility] Blood lymphocytes/100 leukoc ytesOrdered By: Renard Burgos on 01-09-2023 Lymphocytes/100 WBC (Bld) 27.0 % 19-41 [facility] Blood monocytes/100 leukocyt esOrdered By: Renard Burgos on 01-09-2023 Monocytes/100 WBC (Bld) 10.7 % 0-10 [facility] Blood platelet mean volumeOr dered By: Renard Burgos on 01-09-2023 Platelet mean volume (Bld) [Entitic vol] 10.8 fL 6.2-12.0 [facility] Determination of erythrocyte mean corpuscular volume (MCV)Ordered By: Renard Burgso on 01-09-2023 MCV (RBC) [Entitic vol] 92.5 fL 80-94 [facility] Hematocrit Auto (Bld) [Volum e fraction]Ordered By: Renard Burgos on 01-09-2023 Hematocrit (Bld) [Volume fraction] 42.2 % 40-54 [facility] - Hematology and Cell countsOrdered By: Renard Burgos on 01-09-2023 Erythrocyte distribution width (RBC) [Entitic vol] 42.7 fL 35.1-43.9 [facility] Erythrocyte distribution width (RBC) [Ratio] 12.5 % 11.6-14.6 [facility] Immature granulocytes/100 WBC (Bld) 0.300 % 0.0-0.9 [facility] Comment on above: IG% - Immature Granu locytes (promyelocytes, myelocytes and metamyelocytes) > 1% indicates that a LEFT SHIFT is Present. MCH (RBC) [Entitic mass] 30.3 pg 27.0-32.0 [facility] Nucleated RBC/100 WBC (Bld) [Ratio] 0 % 0-5 [facility] MCHC Auto (RBC) [Mass/Vol]Or dered By: Renard Burgos on 01-09-2023 MCHC (RBC) [Mass/Vol] 32.7 g/dL 32-36 [facility] Platelets bldOrdered By: Lyubov Burgos on 01-09-2023 Platelets (Bld) [#/Vol] 209 10*3/uL 150-450 [facility] Absolute lymphocyte countOrd ered By: Renard Burgos on 01-03-2023 Lymphocytes Auto (Unsp spec) [#/Vol] 2.18 10*3/uL 0.83-4.51 [facility] Basophil percentageOrdered B y: Renard Burgos on 01-03-2023 Basophils/100 WBC (Bld) 0.6 % 0-1 [facility] Eosinophils/100 WBC (Bld) 0.5 % 0-5 [facility] Neutrophils (Bld) [#/Vol] 5.4 10*3/uL 2.0-7.7 [facility] Neutrophils/100 WBC (Bld) 64.2 % 47-70 [facility] WBC (Bld) [#/Vol] 8.4 10*3/uL 4.4-11.0 [facility] Blood erythrocytes count (nu mber/volume)Ordered By: Renard Burgos on 01-03-2023 RBC (Bld) [#/Vol] 4.59 10*6/uL 4.6-6.2 [facility] Blood hemoglobin measurement (mass/volume)Ordered By: Renard Burgos on 01-03-2023 Hemoglobin (Bld) [Mass/Vol] 13.9 g/dL 13.0-16.5 [facility] Blood lymphocytes/100 leukoc ytesOrdered By: Renard Burgos on 01-03-2023 Lymphocytes/100 WBC (Bld) 25.9 % 19-41 [facility] Blood monocytes/100 leukocyt esOrdered By: Renard Burgos on 01-03-2023 Monocytes/100 WBC (Bld) 8.3 % 0-10 [facility] Blood platelet mean volumeOr dered By: Renard Burgos on 01-03-2023 Platelet mean volume (Bld) [Entitic vol] 11.0 fL 6.2-12.0 [facility] Determination of erythrocyte mean corpuscular volume (MCV)Ordered By: Renard Burgos on 01-03-2023 MCV (RBC) [Entitic vol] 92.8 fL 80-94 [facility] Hematocrit Auto (Bld) [Volum e fraction]Ordered By: Renard Burgos on 01-03-2023 Hematocrit (Bld) [Volume fraction] 42.6 % 40-54 [facility] - Hematology and Cell countsOrdered By: Renard Burgos on 01-03-2023 Erythrocyte distribution width (RBC) [Entitic vol] 42.5 fL 35.1-43.9 [facility] Erythrocyte distribution width (RBC) [Ratio] 12.6 % 11.6-14.6 [facility] Immature granulocytes/100 WBC (Bld) 0.500 % 0.0-0.9 [facility] Comment on above: IG% - Immature Granu locytes (promyelocytes, myelocytes and metamyelocytes) > 1% indicates that a LEFT SHIFT is Present. MCH (RBC) [Entitic mass] 30.3 pg 27.0-32.0 [facility] Nucleated RBC/100 WBC (Bld) [Ratio] 0 % 0-5 [facility] MCHC Auto (RBC) [Mass/Vol]Or dered By: Renard Burgos on 01-03-2023 MCHC (RBC) [Mass/Vol] 32.6 g/dL 32-36 [facility] No Panel InformationOrdered By: Renard Burgos on 01-03-2023 Prostate Specific Antigen Screen 3.37 ng/mL 0.00-4.00 [facility] Comment on above: This test was perfor med using the TPSA assay method for the[employer] chemistry system. Values obtained with differentassay methods cannot be used interchangably.When changing PSA assays in the course of monitoring apatient, additional sequential testing should be carriedout to confirm baseline values. Platelets bldOrdered By: Lyubov Burgos on 01-03-2023 Platelets (Bld) [#/Vol] 200 10*3/uL 150-450 [facility] Absolute lymphocyte countOrd ered By: Renard Burgos on 12-26-2022 Lymphocytes Auto (Unsp spec) [#/Vol] 1.80 10*3/uL 0.83-4.51 [facility] Basophil percentageOrdered B y: Renard Burgos on 12-26-2022 Basophils/100 WBC (Bld) 0.4 % 0-1 [facility] Eosinophils/100 WBC (Bld) 0.6 % 0-5 [facility] Neutrophils (Bld) [#/Vol] 6.2 10*3/uL 2.0-7.7 [facility] Neutrophils/100 WBC (Bld) 69.8 % 47-70 [facility] WBC (Bld) [#/Vol] 8.9 10*3/uL 4.4-11.0 [facility] Blood erythrocytes count (nu mber/volume)Ordered By: Renard Burgos on 12-26-2022 RBC (Bld) [#/Vol] 4.58 10*6/uL 4.6-6.2 [facility] Blood hemoglobin measurement (mass/volume)Ordered By: Renard Burgos on 12-26-2022 Hemoglobin (Bld) [Mass/Vol] 14.0 g/dL 13.0-16.5 [facility] Blood lymphocytes/100 leukoc ytesOrdered By: Renard Burgos on 12-26-2022 Lymphocytes/100 WBC (Bld) 20.2 % 19-41 [facility] Blood monocytes/100 leukocyt esOrdered By: Renard Burgos on 12-26-2022 Monocytes/100 WBC (Bld) 8.6 % 0-10 [facility] Blood platelet mean volumeOr dered By: Renard Burgos on 12-26-2022 Platelet mean volume (Bld) [Entitic vol] 10.8 fL 6.2-12.0 [facility] Determination of erythrocyte mean corpuscular volume (MCV)Ordered By: Renard Burgos on 12-26-2022 MCV (RBC) [Entitic vol] 93.2 fL 80-94 [facility] Hematocrit Auto (Bld) [Volum e fraction]Ordered By: Renard Burgos on 12-26-2022 Hematocrit (Bld) [Volume fraction] 42.7 % 40-54 [facility] - Hematology and Cell countsOrdered By: Renard Burgos on 12-26-2022 Erythrocyte distribution width (RBC) [Entitic vol] 42.5 fL 35.1-43.9 [facility] Erythrocyte distribution width (RBC) [Ratio] 12.5 % 11.6-14.6 [facility] Immature granulocytes/100 WBC (Bld) 0.400 % 0.0-0.9 [facility] Comment on above: IG% - Immature Granu locytes (promyelocytes, myelocytes and metamyelocytes) > 1% indicates that a LEFT SHIFT is Present. MCH (RBC) [Entitic mass] 30.6 pg 27.0-32.0 [facility] Nucleated RBC/100 WBC (Bld) [Ratio] 0 % 0-5 [facility] MCHC Auto (RBC) [Mass/Vol]Or dered By: Renard Burgos on 12-26-2022 MCHC (RBC) [Mass/Vol] 32.8 g/dL 32-36 [facility] Platelets bldOrdered By: Lyubov Burgos on 12-26-2022 Platelets (Bld) [#/Vol] 200 10*3/uL 150-450 [facility] Absolute lymphocyte countOrd ered By: Renard Burgos on 12-19-2022 Lymphocytes Auto (Unsp spec) [#/Vol] 2.24 10*3/uL 0.83-4.51 [facility] Basophil percentageOrdered B y: Renard Burgos on 12-19-2022 Basophils/100 WBC (Bld) 0.3 % 0-1 [facility] Eosinophils/100 WBC (Bld) 0.8 % 0-5 [facility] Neutrophils (Bld) [#/Vol] 5.7 10*3/uL 2.0-7.7 [facility] Neutrophils/100 WBC (Bld) 64.1 % 47-70 [facility] WBC (Bld) [#/Vol] 8.9 10*3/uL 4.4-11.0 [facility] Blood erythrocytes count (nu mber/volume)Ordered By: Renard Burgos on 12-19-2022 RBC (Bld) [#/Vol] 4.44 10*6/uL 4.6-6.2 [facility] Blood hemoglobin measurement (mass/volume)Ordered By: Renard Burgos on 12-19-2022 Hemoglobin (Bld) [Mass/Vol] 13.5 g/dL 13.0-16.5 [facility] Blood lymphocytes/100 leukoc ytesOrdered By: Renard Burgos on 12-19-2022 Lymphocytes/100 WBC (Bld) 25.1 % 19-41 [facility] Blood monocytes/100 leukocyt esOrdered By: Renard Burgos on 12-19-2022 Monocytes/100 WBC (Bld) 9.4 % 0-10 [facility] Blood platelet mean volumeOr dered By: Renard Burgos on 12-19-2022 Platelet mean volume (Bld) [Entitic vol] 11.0 fL 6.2-12.0 [facility] Determination of erythrocyte mean corpuscular volume (MCV)Ordered By: Renard Burgos on 12-19-2022 MCV (RBC) [Entitic vol] 92.8 fL 80-94 [facility] Hematocrit Auto (Bld) [Volum e fraction]Ordered By: Renard Burgos on 12-19-2022 Hematocrit (Bld) [Volume fraction] 41.2 % 40-54 [facility] - Hematology and Cell countsOrdered By: Renard Burgos on 12-19-2022 Erythrocyte distribution width (RBC) [Entitic vol] 43.2 fL 35.1-43.9 [facility] Erythrocyte distribution width (RBC) [Ratio] 12.7 % 11.6-14.6 [facility] Immature granulocytes/100 WBC (Bld) 0.300 % 0.0-0.9 [facility] Comment on above: IG% - Immature Granu locytes (promyelocytes, myelocytes and metamyelocytes) > 1% indicates that a LEFT SHIFT is Present. MCH (RBC) [Entitic mass] 30.4 pg 27.0-32.0 [facility] Nucleated RBC/100 WBC (Bld) [Ratio] 0 % 0-5 [facility] MCHC Auto (RBC) [Mass/Vol]Or dered By: Renard Burgos on 12-19-2022 MCHC (RBC) [Mass/Vol] 32.8 g/dL 32-36 [facility] Platelets bldOrdered By: Lyubov Burgos on 12-19-2022 Platelets (Bld) [#/Vol] 194 10*3/uL 150-450 [facility] Absolute lymphocyte countOrd ered By: Renard Burgos on 12-12-2022 Lymphocytes Auto (Unsp spec) [#/Vol] 2.33 10*3/uL 0.83-4.51 [facility] Basophil percentageOrdered B y: Renard Burgos on 12-12-2022 Basophils/100 WBC (Bld) 0.6 % 0-1 [facility] Eosinophils/100 WBC (Bld) 0.9 % 0-5 [facility] Neutrophils (Bld) [#/Vol] 5.8 10*3/uL 2.0-7.7 [facility] Neutrophils/100 WBC (Bld) 63.5 % 47-70 [facility] WBC (Bld) [#/Vol] 9.1 10*3/uL 4.4-11.0 [facility] Blood erythrocytes count (nu mber/volume)Ordered By: Renard Burgos on 12-12-2022 RBC (Bld) [#/Vol] 4.52 10*6/uL 4.6-6.2 [facility] Blood hemoglobin measurement (mass/volume)Ordered By: Renard Burgos on 12-12-2022 Hemoglobin (Bld) [Mass/Vol] 13.9 g/dL 13.0-16.5 [facility] Blood lymphocytes/100 leukoc ytesOrdered By: Renard Burgos on 12-12-2022 Lymphocytes/100 WBC (Bld) 25.6 % 19-41 [facility] Blood monocytes/100 leukocyt esOrdered By: Renard Burgos on 12-12-2022 Monocytes/100 WBC (Bld) 9.1 % 0-10 [facility] Blood platelet mean volumeOr dered By: Renard Burgos on 12-12-2022 Platelet mean volume (Bld) [Entitic vol] 10.9 fL 6.2-12.0 [facility] Determination of erythrocyte mean corpuscular volume (MCV)Ordered By: Renard Burgos on 12-12-2022 MCV (RBC) [Entitic vol] 94.2 fL 80-94 [facility] Hematocrit Auto (Bld) [Volum e fraction]Ordered By: Renard Burgos on 12-12-2022 Hematocrit (Bld) [Volume fraction] 42.6 % 40-54 [facility] - Hematology and Cell countsOrdered By: Renard Burgos on 12-12-2022 Erythrocyte distribution width (RBC) [Entitic vol] 44.3 fL 35.1-43.9 [facility] Erythrocyte distribution width (RBC) [Ratio] 12.8 % 11.6-14.6 [facility] Immature granulocytes/100 WBC (Bld) 0.300 % 0.0-0.9 [facility] Comment on above: IG% - Immature Granu locytes (promyelocytes, myelocytes and metamyelocytes) > 1% indicates that a LEFT SHIFT is Present. MCH (RBC) [Entitic mass] 30.8 pg 27.0-32.0 [facility] Nucleated RBC/100 WBC (Bld) [Ratio] 0 % 0-5 [facility] MCHC Auto (RBC) [Mass/Vol]Or dered By: Renard Burgos on 12-12-2022 MCHC (RBC) [Mass/Vol] 32.6 g/dL 32-36 [facility] Platelets bldOrdered By: Lyubov Burgos on 12-12-2022 Platelets (Bld) [#/Vol] 211 10*3/uL 150-450 [facility] Absolute lymphocyte countOrd ered By: Renard Burgos on 12-05-2022 Lymphocytes Auto (Unsp spec) [#/Vol] 1.94 10*3/uL 0.83-4.51 [facility] Basophil percentageOrdered B y: Renard Burgos on 12-05-2022 Basophils/100 WBC (Bld) 0.4 % 0-1 [facility] Eosinophils/100 WBC (Bld) 0.9 % 0-5 [facility] Neutrophils (Bld) [#/Vol] 4.1 10*3/uL 2.0-7.7 [facility] Neutrophils/100 WBC (Bld) 61.2 % 47-70 [facility] WBC (Bld) [#/Vol] 6.7 10*3/uL 4.4-11.0 [facility] Blood erythrocytes count (nu mber/volume)Ordered By: Renard Burgos on 12-05-2022 RBC (Bld) [#/Vol] 4.39 10*6/uL 4.6-6.2 [facility] Blood hemoglobin measurement (mass/volume)Ordered By: Renard Burgos on 12-05-2022 Hemoglobin (Bld) [Mass/Vol] 13.3 g/dL 13.0-16.5 [facility] Blood lymphocytes/100 leukoc ytesOrdered By: Renard Burgos on 12-05-2022 Lymphocytes/100 WBC (Bld) 28.8 % 19-41 [facility] Blood monocytes/100 leukocyt esOrdered By: Renard Burgos on 12-05-2022 Monocytes/100 WBC (Bld) 8.3 % 0-10 [facility] Blood platelet mean volumeOr dered By: Renard Burgos on 12-05-2022 Platelet mean volume (Bld) [Entitic vol] 10.8 fL 6.2-12.0 [facility] Determination of erythrocyte mean corpuscular volume (MCV)Ordered By: Renard Burgos on 12-05-2022 MCV (RBC) [Entitic vol] 90.7 fL 80-94 [facility] Hematocrit Auto (Bld) [Volum e fraction]Ordered By: Renard Burgos on 12-05-2022 Hematocrit (Bld) [Volume fraction] 39.8 % 40-54 [facility] - Hematology and Cell countsOrdered By: Renard Burgos on 12-05-2022 Erythrocyte distribution width (RBC) [Entitic vol] 41.8 fL 35.1-43.9 [facility] Erythrocyte distribution width (RBC) [Ratio] 12.6 % 11.6-14.6 [facility] Immature granulocytes/100 WBC (Bld) 0.400 % 0.0-0.9 [facility] Comment on above: IG% - Immature Granu locytes (promyelocytes, myelocytes and metamyelocytes) > 1% indicates that a LEFT SHIFT is Present. MCH (RBC) [Entitic mass] 30.3 pg 27.0-32.0 [facility] Nucleated RBC/100 WBC (Bld) [Ratio] 0 % 0-5 [facility] MCHC Auto (RBC) [Mass/Vol]Or dered By: Renard Burgos on 12-05-2022 MCHC (RBC) [Mass/Vol] 33.4 g/dL 32-36 [facility] Platelets bldOrdered By: Lyubov Burgos on 12-05-2022 Platelets (Bld) [#/Vol] 208 10*3/uL 150-450 [facility] Absolute lymphocyte countOrd ered By: Renard Burgos on 11-28-2022 Lymphocytes Auto (Unsp spec) [#/Vol] 2.07 10*3/uL 0.83-4.51 [facility] Basophil percentageOrdered B y: Renard Burgos on 11-28-2022 Basophils/100 WBC (Bld) 0.4 % 0-1 [facility] Eosinophils/100 WBC (Bld) 0.6 % 0-5 [facility] Neutrophils (Bld) [#/Vol] 5.1 10*3/uL 2.0-7.7 [facility] Neutrophils/100 WBC (Bld) 64.6 % 47-70 [facility] WBC (Bld) [#/Vol] 7.9 10*3/uL 4.4-11.0 [facility] Blood erythrocytes count (nu mber/volume)Ordered By: Renard Burgos on 11-28-2022 RBC (Bld) [#/Vol] 4.54 10*6/uL 4.6-6.2 [facility] Blood hemoglobin measurement (mass/volume)Ordered By: Renard Burgos on 11-28-2022 Hemoglobin (Bld) [Mass/Vol] 13.7 g/dL 13.0-16.5 [facility] Blood lymphocytes/100 leukoc ytesOrdered By: Renard Burgos on 11-28-2022 Lymphocytes/100 WBC (Bld) 26.2 % 19-41 [facility] Blood monocytes/100 leukocyt esOrdered By: Renard Burgos on 11-28-2022 Monocytes/100 WBC (Bld) 7.7 % 0-10 [facility] Blood platelet mean volumeOr dered By: Renard Burgos on 11-28-2022 Platelet mean volume (Bld) [Entitic vol] 10.6 fL 6.2-12.0 [facility] Determination of erythrocyte mean corpuscular volume (MCV)Ordered By: Renard Burgos on 11-28-2022 MCV (RBC) [Entitic vol] 93.6 fL 80-94 [facility] Hematocrit Auto (Bld) [Volum e fraction]Ordered By: Renard Burgos on 11-28-2022 Hematocrit (Bld) [Volume fraction] 42.5 % 40-54 [facility] - Hematology and Cell countsOrdered By: Renard Burgos on 11-28-2022 Erythrocyte distribution width (RBC) [Entitic vol] 43.5 fL 35.1-43.9 [facility] Erythrocyte distribution width (RBC) [Ratio] 12.7 % 11.6-14.6 [facility] Immature granulocytes/100 WBC (Bld) 0.500 % 0.0-0.9 [facility] Comment on above: IG% - Immature Granu locytes (promyelocytes, myelocytes and metamyelocytes) > 1% indicates that a LEFT SHIFT is Present. MCH (RBC) [Entitic mass] 30.2 pg 27.0-32.0 [facility] Nucleated RBC/100 WBC (Bld) [Ratio] 0 % 0-5 [facility] MCHC Auto (RBC) [Mass/Vol]Or dered By: Renard Burgos on 11-28-2022 MCHC (RBC) [Mass/Vol] 32.2 g/dL 32-36 [facility] Platelets bldOrdered By: Lyubov Burgos on 11-28-2022 Platelets (Bld) [#/Vol] 201 10*3/uL 150-450 [facility] Absolute lymphocyte countOrd ered By: Renard Burgos on 11-21-2022 Lymphocytes Auto (Unsp spec) [#/Vol] 2.32 10*3/uL 0.83-4.51 [facility] Basophil percentageOrdered B y: Renard Burgos on 11-21-2022 Basophils/100 WBC (Bld) 0.6 % 0-1 [facility] Eosinophils/100 WBC (Bld) 0.7 % 0-5 [facility] Neutrophils (Bld) [#/Vol] 5.0 10*3/uL 2.0-7.7 [facility] Neutrophils/100 WBC (Bld) 60.6 % 47-70 [facility] WBC (Bld) [#/Vol] 8.2 10*3/uL 4.4-11.0 [facility] Blood erythrocytes count (nu mber/volume)Ordered By: Renard Burgos on 11-21-2022 RBC (Bld) [#/Vol] 4.71 10*6/uL 4.6-6.2 [facility] Blood hemoglobin measurement (mass/volume)Ordered By: Renard Burgos on 11-21-2022 Hemoglobin (Bld) [Mass/Vol] 14.3 g/dL 13.0-16.5 [facility] Blood lymphocytes/100 leukoc ytesOrdered By: Renard Burgos on 11-21-2022 Lymphocytes/100 WBC (Bld) 28.2 % 19-41 [facility] Blood monocytes/100 leukocyt esOrdered By: Renard Burgos on 11-21-2022 Monocytes/100 WBC (Bld) 9.2 % 0-10 [facility] Blood platelet mean volumeOr dered By: Renard Burgos on 11-21-2022 Platelet mean volume (Bld) [Entitic vol] 10.4 fL 6.2-12.0 [facility] Determination of erythrocyte mean corpuscular volume (MCV)Ordered By: Renard Burgos on 11-21-2022 MCV (RBC) [Entitic vol] 91.9 fL 80-94 [facility] Hematocrit Auto (Bld) [Volum e fraction]Ordered By: Renard Burgos on 11-21-2022 Hematocrit (Bld) [Volume fraction] 43.3 % 40-54 [facility] - Hematology and Cell countsOrdered By: Renard Burgos on 11-21-2022 Erythrocyte distribution width (RBC) [Entitic vol] 43.1 fL 35.1-43.9 [facility] Erythrocyte distribution width (RBC) [Ratio] 12.8 % 11.6-14.6 [facility] Immature granulocytes/100 WBC (Bld) 0.700 % 0.0-0.9 [facility] Comment on above: IG% - Immature Granu locytes (promyelocytes, myelocytes and metamyelocytes) > 1% indicates that a LEFT SHIFT is Present. MCH (RBC) [Entitic mass] 30.4 pg 27.0-32.0 [facility] Nucleated RBC/100 WBC (Bld) [Ratio] 0 % 0-5 [facility] MCHC Auto (RBC) [Mass/Vol]Or dered By: Renard Burgos on 11-21-2022 MCHC (RBC) [Mass/Vol] 33.0 g/dL 32-36 [facility] Platelets bldOrdered By: Lyubov Burgos on 11-21-2022 Platelets (Bld) [#/Vol] 219 10*3/uL 150-450 [facility] Absolute lymphocyte countOrd ered By: Renard Burgos on 11-14-2022 Lymphocytes Auto (Unsp spec) [#/Vol] 1.82 10*3/uL 0.83-4.51 [facility] Basophil percentageOrdered B y: Renard Burgos on 11-14-2022 Basophils/100 WBC (Bld) 0.4 % 0-1 [facility] Chloride [Moles/Vol] 107 [facility]L 98-[facility] Eosin[facility]/100 WBC (Bld) 0.4 % 0-5 [facility] Glucose [Mass/Vol] 121 mg/dL 74-106 [facility] Comment on above: Fasting Glucose resu lt from 100 to 125 mg/dL suggests IMPAIRED HOMEOSTASIS per A.D.A. criteria. Neutrophils (Bld) [#/Vol] 4.7 10*3/uL 2.0-7.7 [facility] Neutrophils/100 WBC (Bld) 66.6 % 47-70 [facility] Potassium [Moles/Vol] 3.7 mmol/L 3.5-5.1 [facility] Sodium [Moles/Vol] 141 mmol/L 136-145 [facility] WBC (Bld) [#/Vol] 7.1 10*3/uL 4.4-11.0 [facility] Blood erythrocytes count (nu mber/volume)Ordered By: Renard Burgos on 11-14-2022 RBC (Bld) [#/Vol] 4.35 10*6/uL 4.6-6.2 [facility] Blood hemoglobin measurement (mass/volume)Ordered By: Renard Burgos on 11-14-2022 Hemoglobin (Bld) [Mass/Vol] 13.6 g/dL 13.0-16.5 [facility] Blood lymphocytes/100 leukoc ytesOrdered By: Renard Burgos on 11-14-2022 Lymphocytes/100 WBC (Bld) 25.6 % 19-41 [facility] Blood monocytes/100 leukocyt esOrdered By: Renard Burgos on 11-14-2022 Monocytes/100 WBC (Bld) 6.6 % 0-10 [facility] Blood platelet mean volumeOr dered By: Renard Burgos on 11-14-2022 Platelet mean volume (Bld) [Entitic vol] 10.9 fL 6.2-12.0 [facility] Determination of erythrocyte mean corpuscular volume (MCV)Ordered By: Renard Burgos on 11-14-2022 MCV (RBC) [Entitic vol] 93.3 fL 80-94 [facility] Hematocrit Auto (Bld) [Volum e fraction]Ordered By: Renard Burgos on 11-14-2022 Hematocrit (Bld) [Volume fraction] 40.6 % 40-54 [facility] - Chemistry and C hemistry - challengeOrdered By: Renard Burgos on 11-14-2022 CO2 [Moles/Vol] 31.0 mmol/L 21.0-32.0 [facility] Urea nitrogen/Creatinine [Mass ratio] 26.0 mg/mg 10-20 [facility] - Hematology and Cell countsOrdered By: Renard Burgos on 11-14-2022 Erythrocyte distribution width (RBC) [Entitic vol] 43.9 fL 35.1-43.9 [facility] Erythrocyte distribution width (RBC) [Ratio] 12.8 % 11.6-14.6 [facility] Immature granulocytes/100 WBC (Bld) 0.400 % 0.0-0.9 [facility] Comment on above: IG% - Immature Granu locytes (promyelocytes, myelocytes and metamyelocytes) > 1% indicates that a LEFT SHIFT is Present. MCH (RBC) [Entitic mass] 31.3 pg 27.0-32.0 [facility] Nucleated RBC/100 WBC (Bld) [Ratio] 0 % 0-5 [facility] MCHC Auto (RBC) [Mass/Vol]Or dered By: Renard Burgos on 11-14-2022 MCHC (RBC) [Mass/Vol] 33.5 g/dL 32-36 [facility] No Panel InformationOrdered By: Renard Burgos on 11-14-2022 Estimated GFR (MDRD) Amer 147 mL/min >60 [facility] Comment on above: GFR Calc Estimated GFR (MDRD) Non-Af Amer 122 mL/min >60 [facility] Comment on above: Non- GFR Calc Platelets bldOrdered By: Lyubov Burgos on 11-14-2022 Platelets (Bld) [#/Vol] 202 10*3/uL 150-450 [facility] Serum or plasma calcium gordy urement (mass/volume)Ordered By: Renard Burgos on 11-14-2022 Calcium [Mass/Vol] 8.2 mg/dL 8.5-10.1 [facility] Serum or plasma creatinine m easurement (mass/volume)Ordered By: Renard Burgos on 11-14-2022 Creatinine [Mass/Vol] 0.69 mg/dL 0.70-1.30 [facility] Comment on above: The validity of the calculated GFR & GFRAA in patients over 70 years has not been determined. Clinical correlation is essential. Serum or plasma urea nitroge n measurement (mass/volume)Ordered By: Renard Burgos on 11-14-2022 Urea nitrogen [Mass/Vol] 18 mg/dL 7-18 [facility] Thin prep Papanicolaou smear with manual screeningOrdered By: Renard Burgos on 11-14-2022 Thin prep Papanicolaou smear with manual screening 3 5-15 [facility] Absolute lymphocyte countOrd ered By: Renard Burgos on 11-07-2022 Lymphocytes Auto (Unsp spec) [#/Vol] 1.99 10*3/uL 0.83-4.51 [facility] Basophil percentageOrdered B y: Renard Burgos on 11-07-2022 Basophils/100 WBC (Bld) 0.8 % 0-1 [facility] Eosinophils/100 WBC (Bld) 0.5 % 0-5 [facility] Neutrophils (Bld) [#/Vol] 5.1 10*3/uL 2.0-7.7 [facility] Neutrophils/100 WBC (Bld) 64.0 % 47-70 [facility] WBC (Bld) [#/Vol] 8.0 10*3/uL 4.4-11.0 [facility] Blood erythrocytes count (nu mber/volume)Ordered By: Renard Burgos on 11-07-2022 RBC (Bld) [#/Vol] 4.45 10*6/uL 4.6-6.2 [facility] Blood hemoglobin measurement (mass/volume)Ordered By: Renard Burgos on 11-07-2022 Hemoglobin (Bld) [Mass/Vol] 13.7 g/dL 13.0-16.5 [facility] Blood lymphocytes/100 leukoc ytesOrdered By: Renard Burgos on 11-07-2022 Lymphocytes/100 WBC (Bld) 25.0 % 19-41 [facility] Blood monocytes/100 leukocyt esOrdered By: Renard Burgos on 11-07-2022 Monocytes/100 WBC (Bld) 9.4 % 0-10 [facility] Blood platelet mean volumeOr dered By: Renard Burgos on 11-07-2022 Platelet mean volume (Bld) [Entitic vol] 10.7 fL 6.2-12.0 [facility] Determination of erythrocyte mean corpuscular volume (MCV)Ordered By: Renard Burgos on 11-07-2022 MCV (RBC) [Entitic vol] 91.5 fL 80-94 [facility] Hematocrit Auto (Bld) [Volum e fraction]Ordered By: Renard Burgos on 11-07-2022 Hematocrit (Bld) [Volume fraction] 40.7 % 40-54 [facility] - Hematology and Cell countsOrdered By: Renard Burgos on 11-07-2022 Erythrocyte distribution width (RBC) [Entitic vol] 42.4 fL 35.1-43.9 [facility] Erythrocyte distribution width (RBC) [Ratio] 12.8 % 11.6-14.6 [facility] Immature granulocytes/100 WBC (Bld) 0.300 % 0.0-0.9 [facility] Comment on above: IG% - Immature Granu locytes (promyelocytes, myelocytes and metamyelocytes) > 1% indicates that a LEFT SHIFT is Present. MCH (RBC) [Entitic mass] 30.8 pg 27.0-32.0 [facility] Nucleated RBC/100 WBC (Bld) [Ratio] 0 % 0-5 [facility] MCHC Auto (RBC) [Mass/Vol]Or dered By: Renard Burgos on 11-07-2022 MCHC (RBC) [Mass/Vol] 33.7 g/dL 32-36 [facility] Platelets bldOrdered By: Lyubov lizy Loretta on 11-07-2022 Platelets (Bld) [#/Vol] 220 10*3/uL 150-450 [facility] Absolute lymphocyte countOrd ered By: Renard Burgos on 10-31-2022 Lymphocytes Auto (Unsp spec) [#/Vol] 1.97 10*3/uL 0.83-4.51 [facility] Basophil percentageOrdered B y: Renard Burgos on 10-31-2022 Basophils/100 WBC (Bld) 0.5 % 0-1 [facility] Eosinophils/100 WBC (Bld) 0.6 % 0-5 [facility] Neutrophils (Bld) [#/Vol] 6.7 10*3/uL 2.0-7.7 [facility] Neutrophils/100 WBC (Bld) 69.9 % 47-70 [facility] WBC (Bld) [#/Vol] 9.6 10*3/uL 4.4-11.0 [facility] Blood erythrocytes count (nu mber/volume)Ordered By: Renard Burgos on 10-31-2022 RBC (Bld) [#/Vol] 4.47 10*6/uL 4.6-6.2 [facility] Blood hemoglobin measurement (mass/volume)Ordered By: Renard Burgos on 10-31-2022 Hemoglobin (Bld) [Mass/Vol] 13.5 g/dL 13.0-16.5 [facility] Blood lymphocytes/100 leukoc ytesOrdered By: Renard Burgos on 10-31-2022 Lymphocytes/100 WBC (Bld) 20.5 % 19-41 [facility] Blood monocytes/100 leukocyt esOrdered By: Renard Burgos on 10-31-2022 Monocytes/100 WBC (Bld) 7.9 % 0-10 [facility] Blood platelet mean volumeOr dered By: Renard Burgos on 10-31-2022 Platelet mean volume (Bld) [Entitic vol] 11.1 fL 6.2-12.0 [facility] Determination of erythrocyte mean corpuscular volume (MCV)Ordered By: Renard Burgos on 10-31-2022 MCV (RBC) [Entitic vol] 92.4 fL 80-94 [facility] Hematocrit Auto (Bld) [Volum e fraction]Ordered By: Renard Burgos on 10-31-2022 Hematocrit (Bld) [Volume fraction] 41.3 % 40-54 [facility] - Hematology and Cell countsOrdered By: Renard Burgos on 10-31-2022 Erythrocyte distribution width (RBC) [Entitic vol] 42.9 fL 35.1-43.9 [facility] Erythrocyte distribution width (RBC) [Ratio] 12.7 % 11.6-14.6 [facility] Immature granulocytes/100 WBC (Bld) 0.600 % 0.0-0.9 [facility] Comment on above: IG% - Immature Granu locytes (promyelocytes, myelocytes and metamyelocytes) > 1% indicates that a LEFT SHIFT is Present. MCH (RBC) [Entitic mass] 30.2 pg 27.0-32.0 [facility] Nucleated RBC/100 WBC (Bld) [Ratio] 0 % 0-5 [facility] MCHC Auto (RBC) [Mass/Vol]Or dered By: Renard Burgos on 10-31-2022 MCHC (RBC) [Mass/Vol] 32.7 g/dL 32-36 [facility] Platelets bldOrdered By: Lyubov Burgos on 10-31-2022 Platelets (Bld) [#/Vol] 221 10*3/uL 150-450 [facility] Absolute lymphocyte countOrd ered By: Renard Burgos on 10-24-2022 Lymphocytes Auto (Unsp spec) [#/Vol] 1.96 10*3/uL 0.83-4.51 [facility] Basophil percentageOrdered B y: Renard Burgos on 10-24-2022 Basophils/100 WBC (Bld) 0.4 % 0-1 [facility] Eosinophils/100 WBC (Bld) 0.7 % 0-5 [facility] Neutrophils (Bld) [#/Vol] 4.5 10*3/uL 2.0-7.7 [facility] Neutrophils/100 WBC (Bld) 61.9 % 47-70 [facility] WBC (Bld) [#/Vol] 7.3 10*3/uL 4.4-11.0 [facility] Blood erythrocytes count (nu mber/volume)Ordered By: Renard Burgos on 10-24-2022 RBC (Bld) [#/Vol] 4.41 10*6/uL 4.6-6.2 [facility] Blood hemoglobin measurement (mass/volume)Ordered By: Renard Burgos on 10-24-2022 Hemoglobin (Bld) [Mass/Vol] 13.2 g/dL 13.0-16.5 [facility] Blood lymphocytes/100 leukoc ytesOrdered By: Renard Burgos on 10-24-2022 Lymphocytes/100 WBC (Bld) 27.0 % 19-41 [facility] Blood monocytes/100 leukocyt esOrdered By: Renard Burgos on 10-24-2022 Monocytes/100 WBC (Bld) 9.4 % 0-10 [facility] Blood platelet mean volumeOr dered By: Renard Burgos on 10-24-2022 Platelet mean volume (Bld) [Entitic vol] 10.9 fL 6.2-12.0 [facility] Determination of erythrocyte mean corpuscular volume (MCV)Ordered By: Renard Burgos on 10-24-2022 MCV (RBC) [Entitic vol] 92.1 fL 80-94 [facility] Hematocrit Auto (Bld) [Volum e fraction]Ordered By: Renard Burgos on 10-24-2022 Hematocrit (Bld) [Volume fraction] 40.6 % 40-54 [facility] - Hematology and Cell countsOrdered By: Renard Burgos on 10-24-2022 Erythrocyte distribution width (RBC) [Entitic vol] 42.8 fL 35.1-43.9 [facility] Erythrocyte distribution width (RBC) [Ratio] 12.8 % 11.6-14.6 [facility] Immature granulocytes/100 WBC (Bld) 0.600 % 0.0-0.9 [facility] Comment on above: IG% - Immature Granu locytes (promyelocytes, myelocytes and metamyelocytes) > 1% indicates that a LEFT SHIFT is Present. MCH (RBC) [Entitic mass] 29.9 pg 27.0-32.0 [facility] Nucleated RBC/100 WBC (Bld) [Ratio] 0 % 0-5 [facility] MCHC Auto (RBC) [Mass/Vol]Or dered By: Renard Burgos on 10-24-2022 MCHC (RBC) [Mass/Vol] 32.5 g/dL 32-36 [facility] Platelets bldOrdered By: Lyubov Burgos on 10-24-2022 Platelets (Bld) [#/Vol] 213 10*3/uL 150-450 [facility] Absolute lymphocyte countOrd ered By: Renard Burgos on 10-17-2022 Lymphocytes Auto (Unsp spec) [#/Vol] 2.05 10*3/uL 0.83-4.51 [facility] Basophil percentageOrdered B y: Renard Burgos on 10-17-2022 Basophils/100 WBC (Bld) 0.4 % 0-1 [facility] Eosinophils/100 WBC (Bld) 0.5 % 0-5 [facility] Neutrophils (Bld) [#/Vol] 6.7 10*3/uL 2.0-7.7 [facility] Neutrophils/100 WBC (Bld) 70.9 % 47-70 [facility] WBC (Bld) [#/Vol] 9.4 10*3/uL 4.4-11.0 [facility] Blood erythrocytes count (nu mber/volume)Ordered By: Renard Burgos on 10-17-2022 RBC (Bld) [#/Vol] 4.33 10*6/uL 4.6-6.2 [facility] Blood hemoglobin measurement (mass/volume)Ordered By: Renard Burgos on 10-17-2022 Hemoglobin (Bld) [Mass/Vol] 13.3 g/dL 13.0-16.5 [facility] Blood lymphocytes/100 leukoc ytesOrdered By: Renard Burgos on 10-17-2022 Lymphocytes/100 WBC (Bld) 21.7 % 19-41 [facility] Blood monocytes/100 leukocyt esOrdered By: Renard Burgos on 10-17-2022 Monocytes/100 WBC (Bld) 6.1 % 0-10 [facility] Blood platelet mean volumeOr dered By: Renard Burgos on 10-17-2022 Platelet mean volume (Bld) [Entitic vol] 10.9 fL 6.2-12.0 [facility] Determination of erythrocyte mean corpuscular volume (MCV)Ordered By: Renard Burgos on 10-17-2022 MCV (RBC) [Entitic vol] 93.8 fL 80-94 [facility] Hematocrit Auto (Bld) [Volum e fraction]Ordered By: Renard Burgos on 10-17-2022 Hematocrit (Bld) [Volume fraction] 40.6 % 40-54 [facility] - Hematology and Cell countsOrdered By: Renard Burgos on 10-17-2022 Erythrocyte distribution width (RBC) [Entitic vol] 42.7 fL 35.1-43.9 [facility] Erythrocyte distribution width (RBC) [Ratio] 12.4 % 11.6-14.6 [facility] Immature granulocytes/100 WBC (Bld) 0.400 % 0.0-0.9 [facility] Comment on above: IG% - Immature Granu locytes (promyelocytes, myelocytes and metamyelocytes) > 1% indicates that a LEFT SHIFT is Present. MCH (RBC) [Entitic mass] 30.7 pg 27.0-32.0 [facility] Nucleated RBC/100 WBC (Bld) [Ratio] 0 % 0-5 [facility] MCHC Auto (RBC) [Mass/Vol]Or dered By: Renard Burgos on 10-17-2022 MCHC (RBC) [Mass/Vol] 32.8 g/dL 32-36 [facility] Platelets bldOrdered By: Lyubov Burgos on 10-17-2022 Platelets (Bld) [#/Vol] 186 10*3/uL 150-450 [facility] Absolute lymphocyte countOrd ered By: Renard Burgos on 10-10-2022 Lymphocytes Auto (Unsp spec) [#/Vol] 2.21 10*3/uL 0.83-4.51 [facility] Basophil percentageOrdered B y: Renard Burgos on 10-10-2022 Basophils/100 WBC (Bld) 0.6 % 0-1 [facility] Eosinophils/100 WBC (Bld) 0.6 % 0-5 [facility] Neutrophils (Bld) [#/Vol] 4.7 10*3/uL 2.0-7.7 [facility] Neutrophils/100 WBC (Bld) 59.6 % 47-70 [facility] WBC (Bld) [#/Vol] 7.9 10*3/uL 4.4-11.0 [facility] Blood erythrocytes count (nu mber/volume)Ordered By: Renard Burgos on 10-10-2022 RBC (Bld) [#/Vol] 4.78 10*6/uL 4.6-6.2 [facility] Blood hemoglobin measurement (mass/volume)Ordered By: Renard Burgos on 10-10-2022 Hemoglobin (Bld) [Mass/Vol] 14.4 g/dL 13.0-16.5 [facility] Blood lymphocytes/100 leukoc ytesOrdered By: Renard Burgos on 10-10-2022 Lymphocytes/100 WBC (Bld) 28.0 % 19-41 [facility] Blood monocytes/100 leukocyt esOrdered By: Renard Burgos on 10-10-2022 Monocytes/100 WBC (Bld) 10.8 % 0-10 [facility] Blood platelet mean volumeOr dered By: Renard Burgos on 10-10-2022 Platelet mean volume (Bld) [Entitic vol] 10.7 fL 6.2-12.0 [facility] Determination of erythrocyte mean corpuscular volume (MCV)Ordered By: Renard Burgos on 10-10-2022 MCV (RBC) [Entitic vol] 94.8 fL 80-94 [facility] Hematocrit Auto (Bld) [Volum e fraction]Ordered By: Renard Brugos on 10-10-2022 Hematocrit (Bld) [Volume fraction] 45.3 % 40-54 [facility] - Hematology and Cell countsOrdered By: Renard Burgos on 10-10-2022 Erythrocyte distribution width (RBC) [Entitic vol] 43.8 fL 35.1-43.9 [facility] Erythrocyte distribution width (RBC) [Ratio] 12.6 % 11.6-14.6 [facility] Immature granulocytes/100 WBC (Bld) 0.400 % 0.0-0.9 [facility] Comment on above: IG% - Immature Granu locytes (promyelocytes, myelocytes and metamyelocytes) > 1% indicates that a LEFT SHIFT is Present. MCH (RBC) [Entitic mass] 30.1 pg 27.0-32.0 [facility] Nucleated RBC/100 WBC (Bld) [Ratio] 0 % 0-5 [facility] MCHC Auto (RBC) [Mass/Vol]Or dered By: Renard Burgos on 10-10-2022 MCHC (RBC) [Mass/Vol] 31.8 g/dL 32-36 [facility] Platelets bldOrdered By: Lyubov Burgos on 10-10-2022 Platelets (Bld) [#/Vol] 198 10*3/uL 150-450 [facility] Absolute lymphocyte countOrd ered By: Renard Burgos on 10-03-2022 Lymphocytes Auto (Unsp spec) [#/Vol] 2.00 10*3/uL 0.83-4.51 [facility] Basophil percentageOrdered B y: Renard Burgos on 10-03-2022 Basophils/100 WBC (Bld) 0.6 % 0-1 [facility] Bilirubin [Mass/Vol] 0.30 mg/dL 0.20-1.00 [facility] Comment on above: For patients on eltr ombopag therapy, use of Dimension [place] TBIL is not recommended. Chloride [Moles/Vol] 109 mmol/L 98-107 [facility] Cholesterol [Mass/Vol] 129 mg/dL <200 [facility] Comment on above: <200 mg/dL Desirable 200-240 mg/dL Borderline >240 mg/dL High Risk Eosinophils/100 WBC (Bld) 0.8 % 0-5 [facility] Glucose [Mass/Vol] 82 mg/dL 74-106 [facility] Neutrophils (Bld) [#/Vol] 5.1 10*3/uL 2.0-7.7 [facility] Neutrophils/100 WBC (Bld) 63.2 % 47-70 [facility] Potassium [Moles/Vol] 3.9 mmol/L 3.5-5.1 [facility] Protein [Mass/Vol] 6.1 g/dL 6.4-8.2 [facility] Sodium [Moles/Vol] 140 mmol/L 136-145 [facility] Triglyceride [Mass/Vol] 209 mg/dL <199 [facility] Comment on above: The drugs N-Acetylcy steine and Metamizole may falsely depress this assay.Serum Triglycerides Reference Interval Normal <150 mg/dL Borderline high 150 - 199 mg/dL High 200 - 499 mg/dL Very High > or = 500 mg/dL WBC (Bld) [#/Vol] 8.0 10*3/uL 4.4-11.0 [facility] Blood erythrocytes count (nu mber/volume)Ordered By: Renard Burgos on 10-03-2022 RBC (Bld) [#/Vol] 4.58 10*6/uL 4.6-6.2 [facility] Blood hemoglobin measurement (mass/volume)Ordered By: Renard Burgos on 10-03-2022 Hemoglobin (Bld) [Mass/Vol] 13.9 g/dL 13.0-16.5 [facility] Blood lymphocytes/100 leukoc ytesOrdered By: Renard Burgos on 10-03-2022 Lymphocytes/100 WBC (Bld) 25.1 % 19-41 [facility] Blood monocytes/100 leukocyt esOrdered By: Renard Burgos on 10-03-2022 Monocytes/100 WBC (Bld) 10.0 % 0-10 [facility] Blood platelet mean volumeOr dered By: Renard Burgos on 10-03-2022 Platelet mean volume (Bld) [Entitic vol] 11.1 fL 6.2-12.0 [facility] Determination of erythrocyte mean corpuscular volume (MCV)Ordered By: Renard Burgos on 10-03-2022 MCV (RBC) [Entitic vol] 93.9 fL 80-94 [facility] Hematocrit Auto (Bld) [Volum e fraction]Ordered By: Renard Burgos on 10-03-2022 Hematocrit (Bld) [Volume fraction] 43.0 % 40-54 [facility] - Chemistry and C hemistry - challengeOrdered By: Renard Burgos on 10-03-2022 ALP [Catalytic activity/Vol] 98 U/L 45-117 [facility] ALT [Catalytic activity/Vol] 19 U/L 16-61 [facility] CO2 [Moles/Vol] 31.0 mmol/L 21.0-32.0 [facility] Globulin (S) [Mass/Vol] 3.1 g/dL 2.2-4.2 [facility] Urea nitrogen/Creatinine [Mass ratio] 25.6 mg/mg 10-20 [facility] - Hematology and Cell countsOrdered By: Renard Burgos on 10-03-2022 Erythrocyte distribution width (RBC) [Entitic vol] 43.8 fL 35.1-43.9 [facility] Erythrocyte distribution width (RBC) [Ratio] 12.7 % 11.6-14.6 [facility] Immature granulocytes/100 WBC (Bld) 0.300 % 0.0-0.9 [facility] Comment on above: IG% - Immature Granu locytes (promyelocytes, myelocytes and metamyelocytes) > 1% indicates that a LEFT SHIFT is Present. MCH (RBC) [Entitic mass] 30.3 pg 27.0-32.0 [facility] Nucleated RBC/100 WBC (Bld) [Ratio] 0 % 0-5 [facility] MCHC Auto (RBC) [Mass/Vol]Or dered By: Renard Burgos on 10-03-2022 MCHC (RBC) [Mass/Vol] 32.3 g/dL 32-36 [facility] No Panel InformationOrdered By: Renard Burgos on 10-03-2022 Estimated GFR (MDRD) Amer 165 mL/min >60 [facility] Comment on above: GFR Calc Estimated GFR (MDRD) Non-Af Amer 137 mL/min >60 [facility] Comment on above: Non- GFR Calc Platelets bldOrdered By: Lyubov Burgos on 10-03-2022 Platelets (Bld) [#/Vol] 204 10*3/uL 150-450 [facility] Serum or plasma albumin gordy urement (mass/volume)Ordered By: Renard Burgos on 10-03-2022 Albumin [Mass/Vol] 3.0 g/dL 3.2-5.0 [facility] Serum or plasma albumin/glob ulin mass ratioOrdered By: Renard Burgos on 10-03-2022 Albumin/Globulin [Mass ratio] 1.0 {ratio} 0.9-2.4 [facility] Serum or plasma calcium gordy urement (mass/volume)Ordered By: Renard Burgos on 10-03-2022 Calcium [Mass/Vol] 8.4 mg/dL 8.5-10.1 [facility] Serum or plasma cholesterol in HDL measurement (mass/volume)Ordered By: Renard Burgos on 10-03-2022 Cholesterol in HDL [Mass/Vol] 29 mg/dL >40 [facility] Comment on above: The drugs N-Acetylcy steine and Metamizole may falsely depress this assay. Reference Range HDL <40 mg/dL Low HDL Cholesterol HDL >or= 60 mg/dL High HDL Cholesterol Serum or plasma cholesterol in VLDL measurement (mass/volume)Ordered By: Renard Burgos on 10-03-2022 Cholesterol in VLDL [Mass/Vol] 42 mg/dL 5-40 [facility] Serum or plasma creatinine m easurement (mass/volume)Ordered By: Renard Burgos on 10-03-2022 Creatinine [Mass/Vol] 0.63 mg/dL 0.70-1.30 [facility] Comment on above: The validity of the calculated GFR & GFRAA in patients over 70 years has not been determined. Clinical correlation is essential. Serum or plasma low density lipoprotein (LDL) cholesterol measurement (mass/volume)Ordered By: Renard Burgos on 10-03-2022 Cholesterol in LDL [Mass/Vol] 58 mg/dL 0-130 [facility] Serum or plasma urea nitroge n measurement (mass/volume)Ordered By: Renard Burgos on 10-03-2022 Urea nitrogen [Mass/Vol] 16 mg/dL 7-18 [facility] Thin prep Papanicolaou smear with manual screeningOrdered By: Renard Burgos on 10-03-2022 Thin prep Papanicolaou smear with manual screening 13 U/L 15-37 [facility] Thin prep Papanicolaou smear with manual screening 0 5-15 [facility] Absolute lymphocyte countOrd ered By: Renard Burgos on 09-19-2022 Lymphocytes Auto (Unsp spec) [#/Vol] 1.59 10*3/uL 0.83-4.51 [facility] Basophil percentageOrdered B y: Renard Burgos on 09-19-2022 Basophils/100 WBC (Bld) 0.5 % 0-1 [facility] Eosinophils/100 WBC (Bld) 0.3 % 0-5 [facility] Neutrophils (Bld) [#/Vol] 7.4 10*3/uL 2.0-7.7 [facility] Neutrophils/100 WBC (Bld) 75.0 % 47-70 [facility] WBC (Bld) [#/Vol] 9.9 10*3/uL 4.4-11.0 [facility] Blood erythrocytes count (nu mber/volume)Ordered By: Renard Burgos on 09-19-2022 RBC (Bld) [#/Vol] 4.46 10*6/uL 4.6-6.2 [facility] Blood hemoglobin measurement (mass/volume)Ordered By: Renadr Burgos on 09-19-2022 Hemoglobin (Bld) [Mass/Vol] 13.5 g/dL 13.0-16.5 [facility] Blood lymphocytes/100 leukoc ytesOrdered By: Renard Burgos on 09-19-2022 Lymphocytes/100 WBC (Bld) 16.1 % 19-41 [facility] Blood monocytes/100 leukocyt esOrdered By: Renard Burgos on 09-19-2022 Monocytes/100 WBC (Bld) 7.6 % 0-10 [facility] Blood platelet mean volumeOr dered By: Renard Burgos on 09-19-2022 Platelet mean volume (Bld) [Entitic vol] 10.8 fL 6.2-12.0 [facility] Determination of erythrocyte mean corpuscular volume (MCV)Ordered By: Renard Burgos on 09-19-2022 MCV (RBC) [Entitic vol] 92.2 fL 80-94 [facility] Hematocrit Auto (Bld) [Volum e fraction]Ordered By: Renard Burgos on 09-19-2022 Hematocrit (Bld) [Volume fraction] 41.1 % 40-54 [facility] - Hematology and Cell countsOrdered By: Renard Burgos on 09-19-2022 Erythrocyte distribution width (RBC) [Entitic vol] 41.2 fL 35.1-43.9 [facility] Erythrocyte distribution width (RBC) [Ratio] 12.3 % 11.6-14.6 [facility] Immature granulocytes/100 WBC (Bld) 0.500 % 0.0-0.9 [facility] Comment on above: IG% - Immature Granu locytes (promyelocytes, myelocytes and metamyelocytes) > 1% indicates that a LEFT SHIFT is Present. MCH (RBC) [Entitic mass] 30.3 pg 27.0-32.0 [facility] Nucleated RBC/100 WBC (Bld) [Ratio] 0 % 0-5 [facility] MCHC Auto (RBC) [Mass/Vol]Or dered By: Renard Burgos on 09-19-2022 MCHC (RBC) [Mass/Vol] 32.8 g/dL 32-36 [facility] Platelets bldOrdered By: Pet lizy Burgos on 09-19-2022 Platelets (Bld) [#/Vol] 245 10*3/uL 150-450 [facility] Absolute lymphocyte countOrd ered By: Renard Burgos on 09-12-2022 Lymphocytes Auto (Unsp spec) [#/Vol] 2.11 10*3/uL 0.83-4.51 [facility] Basophil percentageOrdered B y: Renard Burgos on 09-12-2022 Basophils/100 WBC (Bld) 0.5 % 0-1 [facility] Eosinophils/100 WBC (Bld) 0.7 % 0-5 [facility] Neutrophils (Bld) [#/Vol] 4.7 10*3/uL 2.0-7.7 [facility] Neutrophils/100 WBC (Bld) 63.6 % 47-70 [facility] WBC (Bld) [#/Vol] 7.3 10*3/uL 4.4-11.0 [facility] Blood erythrocytes count (nu mber/volume)Ordered By: Renard Burgos on 09-12-2022 RBC (Bld) [#/Vol] 4.40 10*6/uL 4.6-6.2 [facility] Blood hemoglobin measurement (mass/volume)Ordered By: Renard Burgos on 09-12-2022 Hemoglobin (Bld) [Mass/Vol] 13.5 g/dL 13.0-16.5 [facility] Blood lymphocytes/100 leukoc ytesOrdered By: Renard Burgos on 09-12-2022 Lymphocytes/100 WBC (Bld) 28.8 % 19-41 [facility] Blood monocytes/100 leukocyt esOrdered By: Renard Burgos on 09-12-2022 Monocytes/100 WBC (Bld) 6.1 % 0-10 [facility] Blood platelet mean volumeOr dered By: Renard Burgos on 09-12-2022 Platelet mean volume (Bld) [Entitic vol] 10.7 fL 6.2-12.0 [facility] Determination of erythrocyte mean corpuscular volume (MCV)Ordered By: Renard Burgos on 09-12-2022 MCV (RBC) [Entitic vol] 91.4 fL 80-94 [facility] Hematocrit Auto (Bld) [Volum e fraction]Ordered By: Renard Burgos on 09-12-2022 Hematocrit (Bld) [Volume fraction] 40.2 % 40-54 [facility] - Hematology and Cell countsOrdered By: Renard Burgos on 09-12-2022 Erythrocyte distribution width (RBC) [Entitic vol] 41.3 fL 35.1-43.9 [facility] Erythrocyte distribution width (RBC) [Ratio] 12.5 % 11.6-14.6 [facility] Immature granulocytes/100 WBC (Bld) 0.300 % 0.0-0.9 [facility] Comment on above: IG% - Immature Granu locytes (promyelocytes, myelocytes and metamyelocytes) > 1% indicates that a LEFT SHIFT is Present. MCH (RBC) [Entitic mass] 30.7 pg 27.0-32.0 [facility] Nucleated RBC/100 WBC (Bld) [Ratio] 0 % 0-5 [facility] MCHC Auto (RBC) [Mass/Vol]Or dered By: Renard Burgos on 09-12-2022 MCHC (RBC) [Mass/Vol] 33.6 g/dL 32-36 [facility] Platelets bldOrdered By: Lyubov Burgos on 09-12-2022 Platelets (Bld) [#/Vol] 197 10*3/uL 150-450 [facility] Absolute lymphocyte countOrd ered By: Renard Burgos on 09-05-2022 Lymphocytes Auto (Unsp spec) [#/Vol] 1.94 10*3/uL 0.83-4.51 [facility] Basophil percentageOrdered B y: Renard Burgos on 09-05-2022 Basophils/100 WBC (Bld) 0.5 % 0-1 [facility] Cholesterol [Mass/Vol] 136 mg/dL <200 [facility] Comment on above: <200 mg/dL Desirable 200-240 mg/dL Borderline >240 mg/dL High Risk Eosinophils/100 WBC (Bld) 0.4 % 0-5 [facility] Neutrophils (Bld) [#/Vol] 5.4 10*3/uL 2.0-7.7 [facility] Neutrophils/100 WBC (Bld) 67.5 % 47-70 [facility] Triglyceride [Mass/Vol] 304 mg/dL <199 [facility] Comment on above: The drugs N-Acetylcy steine and Metamizole may falsely depress this assay.Serum Triglycerides Reference Interval Normal <150 mg/dL Borderline high 150 - 199 mg/dL High 200 - 499 mg/dL Very High > or = 500 mg/dL WBC (Bld) [#/Vol] 7.9 10*3/uL 4.4-11.0 [facility] Blood erythrocytes count (nu mber/volume)Ordered By: Renard Burgos on 09-05-2022 RBC (Bld) [#/Vol] 4.28 10*6/uL 4.6-6.2 [facility] Blood hemoglobin measurement (mass/volume)Ordered By: Renard Burgos on 09-05-2022 Hemoglobin (Bld) [Mass/Vol] 12.9 g/dL 13.0-16.5 [facility] Blood lymphocytes/100 leukoc ytesOrdered By: Renard Burgos on 09-05-2022 Lymphocytes/100 WBC (Bld) 24.5 % 19-41 [facility] Blood monocytes/100 leukocyt esOrdered By: Renard Burgos on 09-05-2022 Monocytes/100 WBC (Bld) 6.6 % 0-10 [facility] Blood platelet mean volumeOr dered By: Renard Burgos on 09-05-2022 Platelet mean volume (Bld) [Entitic vol] 10.7 fL 6.2-12.0 [facility] Determination of erythrocyte mean corpuscular volume (MCV)Ordered By: Renard Burgos on 09-05-2022 MCV (RBC) [Entitic vol] 91.4 fL 80-94 [facility] Hematocrit Auto (Bld) [Volum e fraction]Ordered By: Renard Burgos on 09-05-2022 Hematocrit (Bld) [Volume fraction] 39.1 % 40-54 [facility] - Hematology and Cell countsOrdered By: Renard Burgos on 09-05-2022 Erythrocyte distribution width (RBC) [Entitic vol] 41.5 fL 35.1-43.9 [facility] Erythrocyte distribution width (RBC) [Ratio] 12.6 % 11.6-14.6 [facility] Immature granulocytes/100 WBC (Bld) 0.500 % 0.0-0.9 [facility] Comment on above: IG% - Immature Granu locytes (promyelocytes, myelocytes and metamyelocytes) > 1% indicates that a LEFT SHIFT is Present. MCH (RBC) [Entitic mass] 30.1 pg 27.0-32.0 [facility] Nucleated RBC/100 WBC (Bld) [Ratio] 0 % 0-5 [facility] MCHC Auto (RBC) [Mass/Vol]Or dered By: Renard Burgos on 09-05-2022 MCHC (RBC) [Mass/Vol] 33.0 g/dL 32-36 [facility] Platelets bldOrdered By: Lyubov Burgos on 09-05-2022 Platelets (Bld) [#/Vol] 200 10*3/uL 150-450 [facility] Serum or plasma cholesterol in HDL measurement (mass/volume)Ordered By: Renard Burgos on 09-05-2022 Cholesterol in HDL [Mass/Vol] 24 mg/dL >40 [facility] Comment on above: The drugs N-Acetylcy steine and Metamizole may falsely depress this assay. Reference Range HDL <40 mg/dL Low HDL Cholesterol HDL >or= 60 mg/dL High HDL Cholesterol Serum or plasma cholesterol in VLDL measurement (mass/volume)Ordered By: Renard Burgos on 09-05-2022 Cholesterol in VLDL [Mass/Vol] 61 mg/dL 5-40 [facility] Serum or plasma low density lipoprotein (LDL) cholesterol measurement (mass/volume)Ordered By: Renard Burgos on 09-05-2022 Cholesterol in LDL [Mass/Vol] 51 mg/dL 0-130 [facility] Absolute lymphocyte countOrd ered By: Renard Burgos on 08-29-2022 Lymphocytes Auto (Unsp spec) [#/Vol] 1.91 10*3/uL 0.83-4.51 [facility] Basophil percentageOrdered B y: Renard Burgos on 08-29-2022 Basophils/100 WBC (Bld) 0.4 % 0-1 [facility] Eosinophils/100 WBC (Bld) 0.4 % 0-5 [facility] Neutrophils (Bld) [#/Vol] 4.8 10*3/uL 2.0-7.7 [facility] Neutrophils/100 WBC (Bld) 66.0 % 47-70 [facility] WBC (Bld) [#/Vol] 7.3 10*3/uL 4.4-11.0 [facility] Blood erythrocytes count (nu mber/volume)Ordered By: Renard Burgos on 08-29-2022 RBC (Bld) [#/Vol] 4.43 10*6/uL 4.6-6.2 [facility] Blood hemoglobin measurement (mass/volume)Ordered By: Renard Burgos on 08-29-2022 Hemoglobin (Bld) [Mass/Vol] 13.6 g/dL 13.0-16.5 [facility] Blood lymphocytes/100 leukoc ytesOrdered By: Renard Burgos on 08-29-2022 Lymphocytes/100 WBC (Bld) 26.2 % 19-41 [facility] Blood monocytes/100 leukocyt esOrdered By: Renard Burgos on 08-29-2022 Monocytes/100 WBC (Bld) 6.6 % 0-10 [facility] Blood platelet mean volumeOr dered By: Renard Burgos on 08-29-2022 Platelet mean volume (Bld) [Entitic vol] 11.0 fL 6.2-12.0 [facility] Determination of erythrocyte mean corpuscular volume (MCV)Ordered By: Renard Burgos on 08-29-2022 MCV (RBC) [Entitic vol] 92.1 fL 80-94 [facility] Hematocrit Auto (Bld) [Volum e fraction]Ordered By: Renard Burgos on 08-29-2022 Hematocrit (Bld) [Volume fraction] 40.8 % 40-54 [facility] - Hematology and Cell countsOrdered By: Renard Burgos on 08-29-2022 Erythrocyte distribution width (RBC) [Entitic vol] 42.0 fL 35.1-43.9 [facility] Erythrocyte distribution width (RBC) [Ratio] 12.4 % 11.6-14.6 [facility] Immature granulocytes/100 WBC (Bld) 0.400 % 0.0-0.9 [facility] Comment on above: IG% - Immature Granu locytes (promyelocytes, myelocytes and metamyelocytes) > 1% indicates that a LEFT SHIFT is Present. MCH (RBC) [Entitic mass] 30.7 pg 27.0-32.0 [facility] Nucleated RBC/100 WBC (Bld) [Ratio] 0 % 0-5 [facility] MCHC Auto (RBC) [Mass/Vol]Or dered By: Renard Burgos on 08-29-2022 MCHC (RBC) [Mass/Vol] 33.3 g/dL 32-36 [facility] Platelets bldOrdered By: Lyubov Burgos on 08-29-2022 Platelets (Bld) [#/Vol] 195 10*3/uL 150-450 [facility] Absolute lymphocyte countOrd ered By: Renard Burgos on 08-22-2022 Lymphocytes Auto (Unsp spec) [#/Vol] 1.86 10*3/uL 0.83-4.51 [facility] Basophil percentageOrdered B y: Renard Burgos on 08-22-2022 Basophils/100 WBC (Bld) 0.4 % 0-1 [facility] Eosinophils/100 WBC (Bld) 0.4 % 0-5 [facility] Neutrophils (Bld) [#/Vol] 6.5 10*3/uL 2.0-7.7 [facility] Neutrophils/100 WBC (Bld) 70.5 % 47-70 [facility] WBC (Bld) [#/Vol] 9.3 10*3/uL 4.4-11.0 [facility] Blood erythrocytes count (nu mber/volume)Ordered By: Renard Burgos on 08-22-2022 RBC (Bld) [#/Vol] 4.55 10*6/uL 4.6-6.2 [facility] Blood hemoglobin measurement (mass/volume)Ordered By: Renard Burgos on 08-22-2022 Hemoglobin (Bld) [Mass/Vol] 14.1 g/dL 13.0-16.5 [facility] Blood lymphocytes/100 leukoc ytesOrdered By: Renard Burgos on 08-22-2022 Lymphocytes/100 WBC (Bld) 20.1 % 19-41 [facility] Blood monocytes/100 leukocyt esOrdered By: Renard Burgos on 08-22-2022 Monocytes/100 WBC (Bld) 8.3 % 0-10 [facility] Blood platelet mean volumeOr dered By: Renard Burgos on 08-22-2022 Platelet mean volume (Bld) [Entitic vol] 10.8 fL 6.2-12.0 [facility] Determination of erythrocyte mean corpuscular volume (MCV)Ordered By: Renard Burgos on 08-22-2022 MCV (RBC) [Entitic vol] 91.9 fL 80-94 [facility] Hematocrit Auto (Bld) [Volum e fraction]Ordered By: Renard Burgos on 08-22-2022 Hematocrit (Bld) [Volume fraction] 41.8 % 40-54 [facility] - Hematology and Cell countsOrdered By: Renard Burgos on 08-22-2022 Erythrocyte distribution width (RBC) [Entitic vol] 42.5 fL 35.1-43.9 [facility] Erythrocyte distribution width (RBC) [Ratio] 12.6 % 11.6-14.6 [facility] Immature granulocytes/100 WBC (Bld) 0.300 % 0.0-0.9 [facility] Comment on above: IG% - Immature Granu locytes (promyelocytes, myelocytes and metamyelocytes) > 1% indicates that a LEFT SHIFT is Present. MCH (RBC) [Entitic mass] 31.0 pg 27.0-32.0 [facility] Nucleated RBC/100 WBC (Bld) [Ratio] 0 % 0-5 [facility] MCHC Auto (RBC) [Mass/Vol]Or dered By: Renard Burgos on 08-22-2022 MCHC (RBC) [Mass/Vol] 33.7 g/dL 32-36 [facility] Platelets bldOrdered By: Lyubov Burgos on 08-22-2022 Platelets (Bld) [#/Vol] 197 10*3/uL 150-450 [facility] Absolute lymphocyte countOrd ered By: Renard Burgos on 08-15-2022 Lymphocytes Auto (Unsp spec) [#/Vol] 1.88 10*3/uL 0.83-4.51 [facility] Basophil percentageOrdered B y: Renard Burgos on 08-15-2022 Basophils/100 WBC (Bld) 0.5 % 0-1 [facility] Eosinophils/100 WBC (Bld) 0.5 % 0-5 [facility] Neutrophils (Bld) [#/Vol] 5.1 10*3/uL 2.0-7.7 [facility] Neutrophils/100 WBC (Bld) 65.0 % 47-70 [facility] WBC (Bld) [#/Vol] 7.9 10*3/uL 4.4-11.0 [facility] Blood erythrocytes count (nu mber/volume)Ordered By: Renard Burgos on 08-15-2022 RBC (Bld) [#/Vol] 4.48 10*6/uL 4.6-6.2 [facility] Blood hemoglobin measurement (mass/volume)Ordered By: Renard Burgos on 08-15-2022 Hemoglobin (Bld) [Mass/Vol] 13.7 g/dL 13.0-16.5 [facility] Blood lymphocytes/100 leukoc ytesOrdered By: Renard Burgos on 08-15-2022 Lymphocytes/100 WBC (Bld) 23.9 % 19-41 [facility] Blood monocytes/100 leukocyt esOrdered By: Renard Burgos on 08-15-2022 Monocytes/100 WBC (Bld) 9.8 % 0-10 [facility] Blood platelet mean volumeOr dered By: Renard Burgos on 08-15-2022 Platelet mean volume (Bld) [Entitic vol] 10.7 fL 6.2-12.0 [facility] Determination of erythrocyte mean corpuscular volume (MCV)Ordered By: Renard Burgos on 08-15-2022 MCV (RBC) [Entitic vol] 91.1 fL 80-94 [facility] Hematocrit Auto (Bld) [Volum e fraction]Ordered By: Renard Burgos on 08-15-2022 Hematocrit (Bld) [Volume fraction] 40.8 % 40-54 [facility] - Hematology and Cell countsOrdered By: Renard Burgos on 08-15-2022 Erythrocyte distribution width (RBC) [Entitic vol] 41.0 fL 35.1-43.9 [facility] Erythrocyte distribution width (RBC) [Ratio] 12.4 % 11.6-14.6 [facility] Immature granulocytes/100 WBC (Bld) 0.300 % 0.0-0.9 [facility] Comment on above: IG% - Immature Granu locytes (promyelocytes, myelocytes and metamyelocytes) > 1% indicates that a LEFT SHIFT is Present. MCH (RBC) [Entitic mass] 30.6 pg 27.0-32.0 [facility] Nucleated RBC/100 WBC (Bld) [Ratio] 0 % 0-5 [facility] MCHC Auto (RBC) [Mass/Vol]Or dered By: Renard Burgos on 08-15-2022 MCHC (RBC) [Mass/Vol] 33.6 g/dL 32-36 [facility] Platelets bldOrdered By: Lyubov Burgos on 08-15-2022 Platelets (Bld) [#/Vol] 212 10*3/uL 150-450 [facility] Absolute lymphocyte countOrd ered By: Renard Burgos on 08-08-2022 Lymphocytes Auto (Unsp spec) [#/Vol] 1.96 10*3/uL 0.83-4.51 [facility] Basophil percentageOrdered B y: Renard Burgos on 04-10-2023 Basophils/100 WBC (Bld) 0.5 % 0-1 [facility] Eosinophils/100 WBC (Bld) 0.5 % 0-5 [facility] Neutrophils (Bld) [#/Vol] 4.7 10*3/uL 2.0-7.7 [facility] Neutrophils/100 WBC (Bld) 64.1 % 47-70 [facility] WBC (Bld) [#/Vol] 7.4 10*3/uL 4.4-11.0 [facility] Blood erythrocytes count (nu mber/volume)Ordered By: Renard Burgos on 08-08-2022 RBC (Bld) [#/Vol] 4.44 10*6/uL 4.6-6.2 [facility] Blood hemoglobin measurement (mass/volume)Ordered By: Renard Burgos on 08-08-2022 Hemoglobin (Bld) [Mass/Vol] 13.6 g/dL 13.0-16.5 [facility] Blood lymphocytes/100 leukoc ytesOrdered By: Renard Burgos on 08-08-2022 Lymphocytes/100 WBC (Bld) 26.5 % 19-41 [facility] Blood monocytes/100 leukocyt esOrdered By: Renard Burgos on 08-08-2022 Monocytes/100 WBC (Bld) 8.1 % 0-10 [facility] Blood platelet mean volumeOr dered By: Renard Burgos on 08-08-2022 Platelet mean volume (Bld) [Entitic vol] 10.8 fL 6.2-12.0 [facility] Determination of erythrocyte mean corpuscular volume (MCV)Ordered By: Renard Burgos on 08-08-2022 MCV (RBC) [Entitic vol] 91.7 fL 80-94 [facility] Hematocrit Auto (Bld) [Volum e fraction]Ordered By: Renard Burgos on 08-08-2022 Hematocrit (Bld) [Volume fraction] 40.7 % 40-54 [facility] - Hematology and Cell countsOrdered By: Renard Burgos on 08-08-2022 Erythrocyte distribution width (RBC) [Entitic vol] 42.7 fL 35.1-43.9 [facility] Erythrocyte distribution width (RBC) [Ratio] 12.6 % 11.6-14.6 [facility] Immature granulocytes/100 WBC (Bld) 0.300 % 0.0-0.9 [facility] Comment on above: IG% - Immature Granu locytes (promyelocytes, myelocytes and metamyelocytes) > 1% indicates that a LEFT SHIFT is Present. MCH (RBC) [Entitic mass] 30.6 pg 27.0-32.0 [facility] Nucleated RBC/100 WBC (Bld) [Ratio] 0 % 0-5 [facility] MCHC Auto (RBC) [Mass/Vol]Or dered By: Renard Burgos on 08-08-2022 MCHC (RBC) [Mass/Vol] 33.4 g/dL 32-36 [facility] Platelets bldOrdered By: Lyubov Burgos on 08-08-2022 Platelets (Bld) [#/Vol] 187 10*3/uL 150-450 [facility] Absolute lymphocyte countOrd ered By: Renard Burgos on 08-01-2022 Lymphocytes Auto (Unsp spec) [#/Vol] 2.09 10*3/uL 0.83-4.51 [facility] Basophil percentageOrdered B y: Renard Burgos on 08-01-2022 Basophils/100 WBC (Bld) 0.4 % 0-1 [facility] Eosinophils/100 WBC (Bld) 0.4 % 0-5 [facility] Neutrophils (Bld) [#/Vol] 6.6 10*3/uL 2.0-7.7 [facility] Neutrophils/100 WBC (Bld) 69.1 % 47-70 [facility] WBC (Bld) [#/Vol] 9.5 10*3/uL 4.4-11.0 [facility] Blood erythrocytes count (nu mber/volume)Ordered By: Renard Burgos on 08-01-2022 RBC (Bld) [#/Vol] 4.48 10*6/uL 4.6-6.2 [facility] Blood hemoglobin measurement (mass/volume)Ordered By: Renard Burgos on 08-01-2022 Hemoglobin (Bld) [Mass/Vol] 13.9 g/dL 13.0-16.5 [facility] Blood lymphocytes/100 leukoc ytesOrdered By: Renard Burgos on 08-01-2022 Lymphocytes/100 WBC (Bld) 21.9 % 19-41 [facility] Blood monocytes/100 leukocyt esOrdered By: Renard Burgos on 08-01-2022 Monocytes/100 WBC (Bld) 7.9 % 0-10 [facility] Blood platelet mean volumeOr dered By: Renard Burgos on 08-01-2022 Platelet mean volume (Bld) [Entitic vol] 11.0 fL 6.2-12.0 [facility] Determination of erythrocyte mean corpuscular volume (MCV)Ordered By: Renard Burgos on 08-01-2022 MCV (RBC) [Entitic vol] 91.5 fL 80-94 [facility] Hematocrit Auto (Bld) [Volum e fraction]Ordered By: Renard Burgos on 08-01-2022 Hematocrit (Bld) [Volume fraction] 41.0 % 40-54 [facility] - Hematology and Cell countsOrdered By: Renard Burgos on 08-01-2022 Erythrocyte distribution width (RBC) [Entitic vol] 41.6 fL 35.1-43.9 [facility] Erythrocyte distribution width (RBC) [Ratio] 12.5 % 11.6-14.6 [facility] Immature granulocytes/100 WBC (Bld) 0.300 % 0.0-0.9 [facility] Comment on above: IG% - Immature Granu locytes (promyelocytes, myelocytes and metamyelocytes) > 1% indicates that a LEFT SHIFT is Present. MCH (RBC) [Entitic mass] 31.0 pg 27.0-32.0 [facility] Nucleated RBC/100 WBC (Bld) [Ratio] 0 % 0-5 [facility] MCHC Auto (RBC) [Mass/Vol]Or dered By: Renard Burgos on 08-01-2022 MCHC (RBC) [Mass/Vol] 33.9 g/dL 32-36 [facility] Platelets bldOrdered By: Lyubov Burgos on 08-01-2022 Platelets (Bld) [#/Vol] 208 10*3/uL 150-450 [facility] Absolute lymphocyte countOrd ered By: Renard Burgos on 07-25-2022 Lymphocytes Auto (Unsp spec) [#/Vol] 2.16 10*3/uL 0.83-4.51 [facility] Basophil percentageOrdered B y: Renard Burgos on 07-25-2022 Basophils/100 WBC (Bld) 0.6 % 0-1 [facility] Eosinophils/100 WBC (Bld) 0.6 % 0-5 [facility] Neutrophils (Bld) [#/Vol] 5.4 10*3/uL 2.0-7.7 [facility] Neutrophils/100 WBC (Bld) 64.5 % 47-70 [facility] WBC (Bld) [#/Vol] 8.4 10*3/uL 4.4-11.0 [facility] Blood erythrocytes count (nu mber/volume)Ordered By: Renard Burgos on 07-25-2022 RBC (Bld) [#/Vol] 4.45 10*6/uL 4.6-6.2 [facility] Blood hemoglobin measurement (mass/volume)Ordered By: Renard Burgos on 07-25-2022 Hemoglobin (Bld) [Mass/Vol] 13.4 g/dL 13.0-16.5 [facility] Blood lymphocytes/100 leukoc ytesOrdered By: Renard Burgos on 07-25-2022 Lymphocytes/100 WBC (Bld) 25.7 % 19-41 [facility] Blood monocytes/100 leukocyt esOrdered By: Renard Burgos on 07-25-2022 Monocytes/100 WBC (Bld) 8.4 % 0-10 [facility] Blood platelet mean volumeOr dered By: Renard Burgos on 07-25-2022 Platelet mean volume (Bld) [Entitic vol] 11.0 fL 6.2-12.0 [facility] Determination of erythrocyte mean corpuscular volume (MCV)Ordered By: Renard Burgos on 07-25-2022 MCV (RBC) [Entitic vol] 92.8 fL 80-94 [facility] Hematocrit Auto (Bld) [Volum e fraction]Ordered By: Renard Burgos on 07-25-2022 Hematocrit (Bld) [Volume fraction] 41.3 % 40-54 [facility] - Hematology and Cell countsOrdered By: Renard Burgos on 07-25-2022 Erythrocyte distribution width (RBC) [Entitic vol] 42.5 fL 35.1-43.9 [facility] Erythrocyte distribution width (RBC) [Ratio] 12.5 % 11.6-14.6 [facility] Immature granulocytes/100 WBC (Bld) 0.200 % 0.0-0.9 [facility] Comment on above: IG% - Immature Granu locytes (promyelocytes, myelocytes and metamyelocytes) > 1% indicates that a LEFT SHIFT is Present. MCH (RBC) [Entitic mass] 30.1 pg 27.0-32.0 [facility] Nucleated RBC/100 WBC (Bld) [Ratio] 0 % 0-5 [facility] MCHC Auto (RBC) [Mass/Vol]Or dered By: Renard Burgos on 07-25-2022 MCHC (RBC) [Mass/Vol] 32.4 g/dL 32-36 [facility] Platelets bldOrdered By: Lyubov Burgos on 07-25-2022 Platelets (Bld) [#/Vol] 200 10*3/uL 150-450 [facility] No Panel InformationOrdered By: Renard Burgos on 07-19-2022 Vitamin D 25-Hydroxy 34.2 ng/mL [facility] Comment on above: Vitamin D 25(OH) Sta tus Range Deficiency <20 ng/mL (50nmol/L) Insufficiency 20 - 30 ng/mL (50 - 75 nmol/L) Sufficiency 30 - 100 ng/mL (75 - 250 nmol/L) Toxicity >100 ng/mL (>250 nmol/L) Absolute lymphocyte countOrd ered By: Renard Burgos on 07-18-2022 Lymphocytes Auto (Unsp spec) [#/Vol] 2.48 10*3/uL 0.83-4.51 [facility] Basophil percentageOrdered B y: Renard Burgos on 07-18-2022 Basophils/100 WBC (Bld) 0.5 % 0-1 [facility] Eosinophils/100 WBC (Bld) 0.6 % 0-5 [facility] Neutrophils (Bld) [#/Vol] 5.9 10*3/uL 2.0-7.7 [facility] Neutrophils/100 WBC (Bld) 61.6 % 47-70 [facility] WBC (Bld) [#/Vol] 9.6 10*3/uL 4.4-11.0 [facility] Blood erythrocytes count (nu mber/volume)Ordered By: Renard Burgos on 07-18-2022 RBC (Bld) [#/Vol] 4.56 10*6/uL 4.6-6.2 [facility] Blood hemoglobin measurement (mass/volume)Ordered By: Renard Burgos on 07-18-2022 Hemoglobin (Bld) [Mass/Vol] 13.9 g/dL 13.0-16.5 [facility] Blood lymphocytes/100 leukoc ytesOrdered By: Renard Burgos on 07-18-2022 Lymphocytes/100 WBC (Bld) 25.9 % 19-41 [facility] Blood monocytes/100 leukocyt esOrdered By: Renard Burgos on 07-18-2022 Monocytes/100 WBC (Bld) 11.0 % 0-10 [facility] Blood platelet mean volumeOr dered By: Renard Burgos on 07-18-2022 Platelet mean volume (Bld) [Entitic vol] 11.3 fL 6.2-12.0 [facility] Determination of erythrocyte mean corpuscular volume (MCV)Ordered By: Renard Burgos on 07-18-2022 MCV (RBC) [Entitic vol] 93.9 fL 80-94 [facility] Hematocrit Auto (Bld) [Volum e fraction]Ordered By: Renard Burgos on 07-18-2022 Hematocrit (Bld) [Volume fraction] 42.8 % 40-54 [facility] - Hematology and Cell countsOrdered By: Renard Burgos on 07-18-2022 Erythrocyte distribution width (RBC) [Entitic vol] 44.0 fL 35.1-43.9 [facility] Erythrocyte distribution width (RBC) [Ratio] 12.8 % 11.6-14.6 [facility] Immature granulocytes/100 WBC (Bld) 0.400 % 0.0-0.9 [facility] Comment on above: IG% - Immature Granu locytes (promyelocytes, myelocytes and metamyelocytes) > 1% indicates that a LEFT SHIFT is Present. MCH (RBC) [Entitic mass] 30.5 pg 27.0-32.0 [facility] Nucleated RBC/100 WBC (Bld) [Ratio] 0 % 0-5 [facility] MCHC Auto (RBC) [Mass/Vol]Or dered By: Renard Burgos on 07-18-2022 MCHC (RBC) [Mass/Vol] 32.5 g/dL 32-36 [facility] Platelets bldOrdered By: Lyubov Burgos on 07-18-2022 Platelets (Bld) [#/Vol] 207 10*3/uL 150-450 [facility] Absolute lymphocyte countOrd ered By: Renard Burgos on 07-11-2022 Lymphocytes Auto (Unsp spec) [#/Vol] 2.37 10*3/uL 0.83-4.51 [facility] Basophil percentageOrdered B y: Renard Burgos on 07-11-2022 Basophils/100 WBC (Bld) 0.6 % 0-1 [facility] Eosinophils/100 WBC (Bld) 0.5 % 0-5 [facility] Neutrophils (Bld) [#/Vol] 5.3 10*3/uL 2.0-7.7 [facility] Neutrophils/100 WBC (Bld) 61.8 % 47-70 [facility] WBC (Bld) [#/Vol] 8.5 10*3/uL 4.4-11.0 [facility] Blood erythrocytes count (nu mber/volume)Ordered By: Renard Burgos on 07-11-2022 RBC (Bld) [#/Vol] 4.83 10*6/uL 4.6-6.2 [facility] Blood hemoglobin measurement (mass/volume)Ordered By: Renard Burgos on 07-11-2022 Hemoglobin (Bld) [Mass/Vol] 14.7 g/dL 13.0-16.5 [facility] Blood lymphocytes/100 leukoc ytesOrdered By: Renard Burgos on 07-11-2022 Lymphocytes/100 WBC (Bld) 27.8 % 19-41 [facility] Blood monocytes/100 leukocyt esOrdered By: Renard Burgos on 07-11-2022 Monocytes/100 WBC (Bld) 8.8 % 0-10 [facility] Blood platelet mean volumeOr dered By: Renard Burgos on 07-11-2022 Platelet mean volume (Bld) [Entitic vol] 10.6 fL 6.2-12.0 [facility] Determination of erythrocyte mean corpuscular volume (MCV)Ordered By: Renard Burgos on 07-11-2022 MCV (RBC) [Entitic vol] 90.7 fL 80-94 [facility] Hematocrit Auto (Bld) [Volum e fraction]Ordered By: Renard Burgos on 07-11-2022 Hematocrit (Bld) [Volume fraction] 43.8 % 40-54 [facility] - Hematology and Cell countsOrdered By: Renard Burgos on 07-11-2022 Erythrocyte distribution width (RBC) [Entitic vol] 41.2 fL 35.1-43.9 [facility] Erythrocyte distribution width (RBC) [Ratio] 12.7 % 11.6-14.6 [facility] Immature granulocytes/100 WBC (Bld) 0.500 % 0.0-0.9 [facility] Comment on above: IG% - Immature Granu locytes (promyelocytes, myelocytes and metamyelocytes) > 1% indicates that a LEFT SHIFT is Present. MCH (RBC) [Entitic mass] 30.4 pg 27.0-32.0 [facility] Nucleated RBC/100 WBC (Bld) [Ratio] 0 % 0-5 [facility] MCHC Auto (RBC) [Mass/Vol]Or dered By: Renard Burgos on 07-11-2022 MCHC (RBC) [Mass/Vol] 33.6 g/dL 32-36 [facility] Platelets bldOrdered By: Lyubov Burgos on 07-11-2022 Platelets (Bld) [#/Vol] 207 10*3/uL 150-450 [facility] Absolute lymphocyte countOrd ered By: Renard Burgos on 07-04-2022 Lymphocytes Auto (Unsp spec) [#/Vol] 1.87 10*3/uL 0.83-4.51 [facility] Basophil percentageOrdered B y: Renard Burgos on 03-06-2023 Basophils/100 WBC (Bld) 0.4 % 0-1 [facility] Eosinophils/100 WBC (Bld) 0.5 % 0-5 [facility] Neutrophils (Bld) [#/Vol] 7.5 10*3/uL 2.0-7.7 [facility] Neutrophils/100 WBC (Bld) 72.8 % 47-70 [facility] WBC (Bld) [#/Vol] 10.3 10*3/uL 4.4-11.0 [facility] Blood erythrocytes count (nu mber/volume)Ordered By: Renard Burgos on 07-04-2022 RBC (Bld) [#/Vol] 4.45 10*6/uL 4.6-6.2 [facility] Blood hemoglobin measurement (mass/volume)Ordered By: Renard Burgos on 07-04-2022 Hemoglobin (Bld) [Mass/Vol] 13.5 g/dL 13.0-16.5 [facility] Blood lymphocytes/100 leukoc ytesOrdered By: Renard Burgos on 07-04-2022 Lymphocytes/100 WBC (Bld) 18.1 % 19-41 [facility] Blood monocytes/100 leukocyt esOrdered By: Renard Burgos on 07-04-2022 Monocytes/100 WBC (Bld) 7.7 % 0-10 [facility] Blood platelet mean volumeOr dered By: Renard Burgos on 07-04-2022 Platelet mean volume (Bld) [Entitic vol] 11.3 fL 6.2-12.0 [facility] Determination of erythrocyte mean corpuscular volume (MCV)Ordered By: Renard Burgos on 07-04-2022 MCV (RBC) [Entitic vol] 93.0 fL 80-94 [facility] Hematocrit Auto (Bld) [Volum e fraction]Ordered By: Renard Burgos on 07-04-2022 Hematocrit (Bld) [Volume fraction] 41.4 % 40-54 [facility] - Hematology and Cell countsOrdered By: Renard Burgos on 07-04-2022 Erythrocyte distribution width (RBC) [Entitic vol] 43.0 fL 35.1-43.9 [facility] Erythrocyte distribution width (RBC) [Ratio] 12.5 % 11.6-14.6 [facility] Immature granulocytes/100 WBC (Bld) 0.500 % 0.0-0.9 [facility] Comment on above: IG% - Immature Granu locytes (promyelocytes, myelocytes and metamyelocytes) > 1% indicates that a LEFT SHIFT is Present. MCH (RBC) [Entitic mass] 30.3 pg 27.0-32.0 [facility] Nucleated RBC/100 WBC (Bld) [Ratio] 0 % 0-5 [facility] MCHC Auto (RBC) [Mass/Vol]Or dered By: Renard Burgos on 07-04-2022 MCHC (RBC) [Mass/Vol] 32.6 g/dL 32-36 [facility] Platelets bldOrdered By: Lyubov Burgos on 07-04-2022 Platelets (Bld) [#/Vol] 211 10*3/uL 150-450 [facility] Absolute lymphocyte countOrd ered By: Renard Burgos on 06-27-2022 Lymphocytes Auto (Unsp spec) [#/Vol] 1.83 10*3/uL 0.83-4.51 [facility] Basophil percentageOrdered B y: Renard Burgos on 06-27-2022 Basophils/100 WBC (Bld) 0.4 % 0-1 [facility] Eosinophils/100 WBC (Bld) 0.5 % 0-5 [facility] Neutrophils (Bld) [#/Vol] 5.0 10*3/uL 2.0-7.7 [facility] Neutrophils/100 WBC (Bld) 67.6 % 47-70 [facility] WBC (Bld) [#/Vol] 7.4 10*3/uL 4.4-11.0 [facility] Blood erythrocytes count (nu mber/volume)Ordered By: Renard Burgos on 06-27-2022 RBC (Bld) [#/Vol] 4.52 10*6/uL 4.6-6.2 [facility] Blood hemoglobin measurement (mass/volume)Ordered By: Renard Burgos on 06-27-2022 Hemoglobin (Bld) [Mass/Vol] 13.9 g/dL 13.0-16.5 [facility] Blood lymphocytes/100 leukoc ytesOrdered By: Renard Burgos on 06-27-2022 Lymphocytes/100 WBC (Bld) 24.7 % 19-41 [facility] Blood monocytes/100 leukocyt esOrdered By: Renard Burgos on 06-27-2022 Monocytes/100 WBC (Bld) 6.4 % 0-10 [facility] Blood platelet mean volumeOr dered By: Renard Burgos on 06-27-2022 Platelet mean volume (Bld) [Entitic vol] 10.7 fL 6.2-12.0 [facility] Determination of erythrocyte mean corpuscular volume (MCV)Ordered By: Renard Burgos on 06-27-2022 MCV (RBC) [Entitic vol] 91.2 fL 80-94 [facility] Hematocrit Auto (Bld) [Volum e fraction]Ordered By: Renard Burgos on 06-27-2022 Hematocrit (Bld) [Volume fraction] 41.2 % 40-54 [facility] - Hematology and Cell countsOrdered By: Renard Burgos on 06-27-2022 Erythrocyte distribution width (RBC) [Entitic vol] 41.9 fL 35.1-43.9 [facility] Erythrocyte distribution width (RBC) [Ratio] 12.7 % 11.6-14.6 [facility] Immature granulocytes/100 WBC (Bld) 0.400 % 0.0-0.9 [facility] Comment on above: IG% - Immature Granu locytes (promyelocytes, myelocytes and metamyelocytes) > 1% indicates that a LEFT SHIFT is Present. MCH (RBC) [Entitic mass] 30.8 pg 27.0-32.0 [facility] Nucleated RBC/100 WBC (Bld) [Ratio] 0 % 0-5 [facility] MCHC Auto (RBC) [Mass/Vol]Or dered By: Renard Burgos on 06-27-2022 MCHC (RBC) [Mass/Vol] 33.7 g/dL 32-36 [facility] Platelets bldOrdered By: Lyubov Burgos on 06-27-2022 Platelets (Bld) [#/Vol] 200 10*3/uL 150-450 [facility] Absolute lymphocyte countOrd ered By: Renard Burgos on 06-20-2022 Lymphocytes Auto (Unsp spec) [#/Vol] 1.57 10*3/uL 0.83-4.51 [facility] Basophil percentageOrdered B y: Renard Burgos on 06-20-2022 Basophils/100 WBC (Bld) 0.2 % 0-1 [facility] Eosinophils/100 WBC (Bld) 0.2 % 0-5 [facility] Neutrophils (Bld) [#/Vol] 6.5 10*3/uL 2.0-7.7 [facility] Neutrophils/100 WBC (Bld) 74.5 % 47-70 [facility] WBC (Bld) [#/Vol] 8.8 10*3/uL 4.4-11.0 [facility] Blood erythrocytes count (nu mber/volume)Ordered By: Renard Burgos on 06-20-2022 RBC (Bld) [#/Vol] 4.79 10*6/uL 4.6-6.2 [facility] Blood hemoglobin measurement (mass/volume)Ordered By: Renard Burgos on 06-20-2022 Hemoglobin (Bld) [Mass/Vol] 14.6 g/dL 13.0-16.5 [facility] Blood lymphocytes/100 leukoc ytesOrdered By: Renard Burgos on 06-20-2022 Lymphocytes/100 WBC (Bld) 17.8 % 19-41 [facility] Blood monocytes/100 leukocyt esOrdered By: Renard Burgos on 06-20-2022 Monocytes/100 WBC (Bld) 7.0 % 0-10 [facility] Blood platelet mean volumeOr dered By: Renard Burgos on 06-20-2022 Platelet mean volume (Bld) [Entitic vol] 11.1 fL 6.2-12.0 [facility] Determination of erythrocyte mean corpuscular volume (MCV)Ordered By: Renard Burgos on 06-20-2022 MCV (RBC) [Entitic vol] 92.1 fL 80-94 [facility] Hematocrit Auto (Bld) [Volum e fraction]Ordered By: Renard Burgos on 06-20-2022 Hematocrit (Bld) [Volume fraction] 44.1 % 40-54 [facility] - Hematology and Cell countsOrdered By: Renard Burgos on 06-20-2022 Erythrocyte distribution width (RBC) [Entitic vol] 42.4 fL 35.1-43.9 [facility] Erythrocyte distribution width (RBC) [Ratio] 12.6 % 11.6-14.6 [facility] Immature granulocytes/100 WBC (Bld) 0.300 % 0.0-0.9 [facility] Comment on above: IG% - Immature Granu locytes (promyelocytes, myelocytes and metamyelocytes) > 1% indicates that a LEFT SHIFT is Present. MCH (RBC) [Entitic mass] 30.5 pg 27.0-32.0 [facility] Nucleated RBC/100 WBC (Bld) [Ratio] 0 % 0-5 [facility] MCHC Auto (RBC) [Mass/Vol]Or dered By: Renard Burgos on 06-20-2022 MCHC (RBC) [Mass/Vol] 33.1 g/dL 32-36 [facility] Platelets bldOrdered By: Lyubov Burgos on 06-20-2022 Platelets (Bld) [#/Vol] 207 10*3/uL 150-450 [facility] Absolute lymphocyte countOrd ered By: Renard Burgos on 06-13-2022 Lymphocytes Auto (Unsp spec) [#/Vol] 2.28 10*3/uL 0.83-4.51 [facility] Basophil percentageOrdered B y: Renard Burgos on 06-13-2022 Basophils/100 WBC (Bld) 0.5 % 0-1 [facility] Eosinophils/100 WBC (Bld) 0.4 % 0-5 [facility] Neutrophils (Bld) [#/Vol] 6.0 10*3/uL 2.0-7.7 [facility] Neutrophils/100 WBC (Bld) 65.6 % 47-70 [facility] WBC (Bld) [#/Vol] 9.2 10*3/uL 4.4-11.0 [facility] Blood erythrocytes count (nu mber/volume)Ordered By: Renard Burgos on 06-13-2022 RBC (Bld) [#/Vol] 4.55 10*6/uL 4.6-6.2 [facility] Blood hemoglobin measurement (mass/volume)Ordered By: Renard Burgos on 06-13-2022 Hemoglobin (Bld) [Mass/Vol] 13.7 g/dL 13.0-16.5 [facility] Blood lymphocytes/100 leukoc ytesOrdered By: Renard Burgos on 06-13-2022 Lymphocytes/100 WBC (Bld) 24.9 % 19-41 [facility] Blood monocytes/100 leukocyt esOrdered By: Renard Burgos on 06-13-2022 Monocytes/100 WBC (Bld) 8.2 % 0-10 [facility] Blood platelet mean volumeOr dered By: Renard Burgos on 06-13-2022 Platelet mean volume (Bld) [Entitic vol] 10.9 fL 6.2-12.0 [facility] Determination of erythrocyte mean corpuscular volume (MCV)Ordered By: Renard Burgos on 06-13-2022 MCV (RBC) [Entitic vol] 92.3 fL 80-94 [facility] Hematocrit Auto (Bld) [Volum e fraction]Ordered By: Renard Burgos on 06-13-2022 Hematocrit (Bld) [Volume fraction] 42.0 % 40-54 [facility] - Hematology and Cell countsOrdered By: Renard Burgos on 06-13-2022 Erythrocyte distribution width (RBC) [Entitic vol] 43.2 fL 35.1-43.9 [facility] Erythrocyte distribution width (RBC) [Ratio] 12.8 % 11.6-14.6 [facility] Immature granulocytes/100 WBC (Bld) 0.400 % 0.0-0.9 [facility] Comment on above: IG% - Immature Granu locytes (promyelocytes, myelocytes and metamyelocytes) > 1% indicates that a LEFT SHIFT is Present. MCH (RBC) [Entitic mass] 30.1 pg 27.0-32.0 [facility] Nucleated RBC/100 WBC (Bld) [Ratio] 0 % 0-5 [facility] MCHC Auto (RBC) [Mass/Vol]Or dered By: Renard Burgos on 06-13-2022 MCHC (RBC) [Mass/Vol] 32.6 g/dL 32-36 [facility] Platelets bldOrdered By: Lyubov lizy Loretta on 06-13-2022 Platelets (Bld) [#/Vol] 203 10*3/uL 150-450 [facility] Absolute lymphocyte countOrd ered By: Renard Burgos on 06-06-2022 Lymphocytes Auto (Unsp spec) [#/Vol] 2.02 10*3/uL 0.83-4.51 [facility] Basophil percentageOrdered B y: Renard Burgos on 06-06-2022 Basophils/100 WBC (Bld) 0.5 % 0-1 [facility] Eosinophils/100 WBC (Bld) 0.7 % 0-5 [facility] Neutrophils (Bld) [#/Vol] 4.7 10*3/uL 2.0-7.7 [facility] Neutrophils/100 WBC (Bld) 63.3 % 47-70 [facility] WBC (Bld) [#/Vol] 7.4 10*3/uL 4.4-11.0 [facility] Blood erythrocytes count (nu mber/volume)Ordered By: Renard Burgos on 06-06-2022 RBC (Bld) [#/Vol] 4.57 10*6/uL 4.6-6.2 [facility] Blood hemoglobin measurement (mass/volume)Ordered By: Renard Burgos on 06-06-2022 Hemoglobin (Bld) [Mass/Vol] 14.0 g/dL 13.0-16.5 [facility] Blood lymphocytes/100 leukoc ytesOrdered By: Renard Burgos on 06-06-2022 Lymphocytes/100 WBC (Bld) 27.2 % 19-41 [facility] Blood monocytes/100 leukocyt esOrdered By: Renard Burgos on 06-06-2022 Monocytes/100 WBC (Bld) 7.9 % 0-10 [facility] Blood platelet mean volumeOr dered By: Renard Burgos on 06-06-2022 Platelet mean volume (Bld) [Entitic vol] 10.7 fL 6.2-12.0 [facility] Determination of erythrocyte mean corpuscular volume (MCV)Ordered By: Renard Burgos on 06-06-2022 MCV (RBC) [Entitic vol] 90.2 fL 80-94 [facility] Hematocrit Auto (Bld) [Volum e fraction]Ordered By: Renard Burgos on 06-06-2022 Hematocrit (Bld) [Volume fraction] 41.2 % 40-54 [facility] - Hematology and Cell countsOrdered By: Renard Burgos on 06-06-2022 Erythrocyte distribution width (RBC) [Entitic vol] 41.5 fL 35.1-43.9 [facility] Erythrocyte distribution width (RBC) [Ratio] 12.7 % 11.6-14.6 [facility] Immature granulocytes/100 WBC (Bld) 0.400 % 0.0-0.9 [facility] Comment on above: IG% - Immature Granu locytes (promyelocytes, myelocytes and metamyelocytes) > 1% indicates that a LEFT SHIFT is Present. MCH (RBC) [Entitic mass] 30.6 pg 27.0-32.0 [facility] Nucleated RBC/100 WBC (Bld) [Ratio] 0 % 0-5 [facility] MCHC Auto (RBC) [Mass/Vol]Or dered By: Renard Burgos on 06-06-2022 MCHC (RBC) [Mass/Vol] 34.0 g/dL 32-36 [facility] Platelets bldOrdered By: Lyubov Burgos on 06-06-2022 Platelets (Bld) [#/Vol] 197 10*3/uL 150-450 [facility] Absolute lymphocyte countOrd ered By: Renard Burgos on 05-30-2022 Lymphocytes Auto (Unsp spec) [#/Vol] 2.32 10*3/uL 0.83-4.51 [facility] Basophil percentageOrdered B y: Renard Burgos on 05-30-2022 Basophils/100 WBC (Bld) 0.4 % 0-1 [facility] Eosinophils/100 WBC (Bld) 0.5 % 0-5 [facility] Neutrophils (Bld) [#/Vol] 5.2 10*3/uL 2.0-7.7 [facility] Neutrophils/100 WBC (Bld) 62.6 % 47-70 [facility] WBC (Bld) [#/Vol] 8.3 10*3/uL 4.4-11.0 [facility] Blood erythrocytes count (nu mber/volume)Ordered By: Renard Burgos on 05-30-2022 RBC (Bld) [#/Vol] 4.87 10*6/uL 4.6-6.2 [facility] Blood hemoglobin measurement (mass/volume)Ordered By: Renard Burgos on 05-30-2022 Hemoglobin (Bld) [Mass/Vol] 14.6 g/dL 13.0-16.5 [facility] Blood lymphocytes/100 leukoc ytesOrdered By: Renard Burgos on 05-30-2022 Lymphocytes/100 WBC (Bld) 27.9 % 19-41 [facility] Blood monocytes/100 leukocyt esOrdered By: Renard Burgos on 05-30-2022 Monocytes/100 WBC (Bld) 8.0 % 0-10 [facility] Blood platelet mean volumeOr dered By: Renard Burgos on 05-30-2022 Platelet mean volume (Bld) [Entitic vol] 10.9 fL 6.2-12.0 [facility] Determination of erythrocyte mean corpuscular volume (MCV)Ordered By: Renard Burgos on 05-30-2022 MCV (RBC) [Entitic vol] 91.6 fL 80-94 [facility] Hematocrit Auto (Bld) [Volum e fraction]Ordered By: Renard Burgos on 05-30-2022 Hematocrit (Bld) [Volume fraction] 44.6 % 40-54 [facility] - Hematology and Cell countsOrdered By: Renard Burgos on 05-30-2022 Erythrocyte distribution width (RBC) [Entitic vol] 42.4 fL 35.1-43.9 [facility] Erythrocyte distribution width (RBC) [Ratio] 12.6 % 11.6-14.6 [facility] Immature granulocytes/100 WBC (Bld) 0.600 % 0.0-0.9 [facility] Comment on above: IG% - Immature Granu locytes (promyelocytes, myelocytes and metamyelocytes) > 1% indicates that a LEFT SHIFT is Present. MCH (RBC) [Entitic mass] 30.0 pg 27.0-32.0 [facility] Nucleated RBC/100 WBC (Bld) [Ratio] 0 % 0-5 [facility] MCHC Auto (RBC) [Mass/Vol]Or dered By: Renard Burgos on 05-30-2022 MCHC (RBC) [Mass/Vol] 32.7 g/dL 32-36 [facility] Platelets bldOrdered By: Lyubov Burgos on 05-30-2022 Platelets (Bld) [#/Vol] 213 10*3/uL 150-450 [facility] Absolute lymphocyte countOrd ered By: Renard Burgos on 05-23-2022 Lymphocytes Auto (Unsp spec) [#/Vol] 2.07 10*3/uL 0.83-4.51 [facility] Basophil percentageOrdered B y: Renard Burgos on 05-23-2022 Basophils/100 WBC (Bld) 0.5 % 0-1 [facility] Eosinophils/100 WBC (Bld) 0.4 % 0-5 [facility] Neutrophils (Bld) [#/Vol] 5.7 10*3/uL 2.0-7.7 [facility] Neutrophils/100 WBC (Bld) 66.5 % 47-70 [facility] WBC (Bld) [#/Vol] 8.5 10*3/uL 4.4-11.0 [facility] Blood erythrocytes count (nu mber/volume)Ordered By: Renard Burgos on 05-23-2022 RBC (Bld) [#/Vol] 4.75 10*6/uL 4.6-6.2 [facility] Blood hemoglobin measurement (mass/volume)Ordered By: Renard Burgos on 05-23-2022 Hemoglobin (Bld) [Mass/Vol] 14.3 g/dL 13.0-16.5 [facility] Blood lymphocytes/100 leukoc ytesOrdered By: Renard Burgos on 05-23-2022 Lymphocytes/100 WBC (Bld) 24.4 % 19-41 [facility] Blood monocytes/100 leukocyt esOrdered By: Renard Burgos on 05-23-2022 Monocytes/100 WBC (Bld) 7.7 % 0-10 [facility] Blood platelet mean volumeOr dered By: Renard Burgos on 05-23-2022 Platelet mean volume (Bld) [Entitic vol] 11.1 fL 6.2-12.0 [facility] Determination of erythrocyte mean corpuscular volume (MCV)Ordered By: Renard Burgos on 05-23-2022 MCV (RBC) [Entitic vol] 90.9 fL 80-94 [facility] Hematocrit Auto (Bld) [Volum e fraction]Ordered By: Renard Burgos on 05-23-2022 Hematocrit (Bld) [Volume fraction] 43.2 % 40-54 [facility] - Hematology and Cell countsOrdered By: Renard Burgos on 05-23-2022 Erythrocyte distribution width (RBC) [Entitic vol] 41.7 fL 35.1-43.9 [facility] Erythrocyte distribution width (RBC) [Ratio] 12.5 % 11.6-14.6 [facility] Immature granulocytes/100 WBC (Bld) 0.500 % 0.0-0.9 [facility] Comment on above: IG% - Immature Granu locytes (promyelocytes, myelocytes and metamyelocytes) > 1% indicates that a LEFT SHIFT is Present. MCH (RBC) [Entitic mass] 30.1 pg 27.0-32.0 [facility] Nucleated RBC/100 WBC (Bld) [Ratio] 0 % 0-5 [facility] MCHC Auto (RBC) [Mass/Vol]Or dered By: Renard Burgos on 05-23-2022 MCHC (RBC) [Mass/Vol] 33.1 g/dL 32-36 [facility] Platelets bldOrdered By: Lyubov Burgos on 05-23-2022 Platelets (Bld) [#/Vol] 213 10*3/uL 150-450 [facility] No Panel Informationon 05-20 Dejah Hazel DO 05/20/2022 7:32 PM Feeding Tube Replacement Performed by: Dejah Hazel DO Authorized by: Abelardo Rios DO Consent: Consent obtained: Verbal Consent given by: Patient [place] protocol: Patient identity confirmed: Verbally with patient [...] Procedure completion: Tolerated well, no immediate complications [facility] XR Abdomen Single viewon G-tube position is within the stomach. No evidence of contrast extravasation. Report Dictated on Electronically Signed By: Jason Tran Electronically Signed Date/Time: 05/20/2022 7:38 PM EST [facility] Patient Name: KATHYA HOOPER Exam Date/Time: 05/20/2022 19:18 Procedure: XR ABDOMEN 1 VIEW Ordering Provider: RIOS TYLER Reason For Exam: SUPINE ABDOMEN (KUB) CLINICAL INDICATION: confirm placement of G tube A supine plain film of the abdomen was obtained. Repeat abdominal radiographs following hand injection of enteric contrast via the patient's enteric tube. (Gastrografin 30 mL). COMPARISON: None FINDINGS: On the deputy grand jury image, no dilated bowel loops are identified. Feeding tube overlies the epigastric region of the abdomen. On the postcontrast images, there is a small amount of enteric contrast in the stomach and contrast is present throughout the proximal duodenum. No extravasated contrast is evident. [facility] Jason Tran M D - 05/20/2022 Patient [...] 30 mL). COMPARISON: None FINDINGS: On the deputy grand jury image, no dilated bowel loops are identified. [...] PM EST [facility] Radiology Study observation (narrative) [facility] XR Abdomen Single viewOrdere d By: Jason Tran on 05-20-2022 [facility] [employer] Work Phone: Absolute lymphocyte countOrd ered By: Renard Burgos on 05-16-2022 Lymphocytes Auto (Unsp spec) [#/Vol] 2.06 10*3/uL 0.83-4.51 [facility] Basophil percentageOrdered B y: Renard Burgos on 05-16-2022 Basophils/100 WBC (Bld) 0.6 % 0-1 [facility] Eosinophils/100 WBC (Bld) 0.6 % 0-5 [facility] Neutrophils (Bld) [#/Vol] 4.4 10*3/uL 2.0-7.7 [facility] Neutrophils/100 WBC (Bld) 61.2 % 47-70 [facility] WBC (Bld) [#/Vol] 7.1 10*3/uL 4.4-11.0 [facility] Blood erythrocytes count (nu mber/volume)Ordered By: Renard Burgos on 05-16-2022 RBC (Bld) [#/Vol] 4.58 10*6/uL 4.6-6.2 [facility] Blood hemoglobin measurement (mass/volume)Ordered By: Renard Burgos on 05-16-2022 Hemoglobin (Bld) [Mass/Vol] 13.9 g/dL 13.0-16.5 [facility] Blood lymphocytes/100 leukoc ytesOrdered By: Renard Burgos on 05-16-2022 Lymphocytes/100 WBC (Bld) 29.0 % 19-41 [facility] Blood monocytes/100 leukocyt esOrdered By: Renard Burgos on 05-16-2022 Monocytes/100 WBC (Bld) 8.2 % 0-10 [facility] Blood platelet mean volumeOr dered By: Renard Burgos on 05-16-2022 Platelet mean volume (Bld) [Entitic vol] 11.1 fL 6.2-12.0 [facility] Determination of erythrocyte mean corpuscular volume (MCV)Ordered By: Renard Burgos on 05-16-2022 MCV (RBC) [Entitic vol] 91.5 fL 80-94 [facility] Hematocrit Auto (Bld) [Volum e fraction]Ordered By: Renard Burgos on 05-16-2022 Hematocrit (Bld) [Volume fraction] 41.9 % 40-54 [facility] - Hematology and Cell countsOrdered By: Renard Burgos on 05-16-2022 Erythrocyte distribution width (RBC) [Entitic vol] 41.3 fL 35.1-43.9 [facility] Erythrocyte distribution width (RBC) [Ratio] 12.5 % 11.6-14.6 [facility] Immature granulocytes/100 WBC (Bld) 0.400 % 0.0-0.9 [facility] Comment on above: IG% - Immature Granu locytes (promyelocytes, myelocytes and metamyelocytes) > 1% indicates that a LEFT SHIFT is Present. MCH (RBC) [Entitic mass] 30.3 pg 27.0-32.0 [facility] Nucleated RBC/100 WBC (Bld) [Ratio] 0 % 0-5 [facility] MCHC Auto (RBC) [Mass/Vol]Or dered By: Renard Burgos on 05-16-2022 MCHC (RBC) [Mass/Vol] 33.2 g/dL 32-36 [facility] Platelets bldOrdered By: Lyubov Burgos on 05-16-2022 Platelets (Bld) [#/Vol] 205 10*3/uL 150-450 [facility] Absolute lymphocyte countOrd ered By: Renard Burgos on 05-09-2022 Lymphocytes Auto (Unsp spec) [#/Vol] 1.92 10*3/uL 0.83-4.51 [facility] Basophil percentageOrdered B y: Renard Burgos on 05-09-2022 Basophils/100 WBC (Bld) 0.7 % 0-1 [facility] Eosinophils/100 WBC (Bld) 0.7 % 0-5 [facility] Neutrophils (Bld) [#/Vol] 4.3 10*3/uL 2.0-7.7 [facility] Neutrophils/100 WBC (Bld) 60.9 % 47-70 [facility] WBC (Bld) [#/Vol] 7.1 10*3/uL 4.4-11.0 [facility] Blood erythrocytes count (nu mber/volume)Ordered By: Renard Burgos on 05-09-2022 RBC (Bld) [#/Vol] 4.67 10*6/uL 4.6-6.2 [facility] Blood hemoglobin measurement (mass/volume)Ordered By: Renard Burgos on 05-09-2022 Hemoglobin (Bld) [Mass/Vol] 14.1 g/dL 13.0-16.5 [facility] Blood lymphocytes/100 leukoc ytesOrdered By: Renard Burgos on 05-09-2022 Lymphocytes/100 WBC (Bld) 27.2 % 19-41 [facility] Blood monocytes/100 leukocyt esOrdered By: Renard Burgos on 05-09-2022 Monocytes/100 WBC (Bld) 10.2 % 0-10 [facility] Blood platelet mean volumeOr dered By: Renard Burgos on 05-09-2022 Platelet mean volume (Bld) [Entitic vol] 11.5 fL 6.2-12.0 [facility] Determination of erythrocyte mean corpuscular volume (MCV)Ordered By: Renard Burgos on 05-09-2022 MCV (RBC) [Entitic vol] 91.0 fL 80-94 [facility] Hematocrit Auto (Bld) [Volum e fraction]Ordered By: Renard Burgos on 05-09-2022 Hematocrit (Bld) [Volume fraction] 42.5 % 40-54 [facility] - Hematology and Cell countsOrdered By: Renard Burgos on 05-09-2022 Erythrocyte distribution width (RBC) [Entitic vol] 41.4 fL 35.1-43.9 [facility] Erythrocyte distribution width (RBC) [Ratio] 12.7 % 11.6-14.6 [facility] Immature granulocytes/100 WBC (Bld) 0.300 % 0.0-0.9 [facility] Comment on above: IG% - Immature Granu locytes (promyelocytes, myelocytes and metamyelocytes) > 1% indicates that a LEFT SHIFT is Present. MCH (RBC) [Entitic mass] 30.2 pg 27.0-32.0 [facility] Nucleated RBC/100 WBC (Bld) [Ratio] 0.4 % 0-5 [facility] MCHC Auto (RBC) [Mass/Vol]Or dered By: Renard Burgos on 05-09-2022 MCHC (RBC) [Mass/Vol] 33.2 g/dL 32-36 [facility] Platelets bldOrdered By: Pet lizy Burgos on 05-09-2022 Platelets (Bld) [#/Vol] 202 10*3/uL 150-450 [facility] Absolute lymphocyte countOrd ered By: Renard Burgos on 05-03-2022 Lymphocytes Auto (Unsp spec) [#/Vol] 1.86 10*3/uL 0.83-4.51 [facility] Basophil percentageOrdered B y: Renard Burgos on 05-03-2022 Basophils/100 WBC (Bld) 0.3 % 0-1 [facility] Eosinophils/100 WBC (Bld) 0.3 % 0-5 [facility] Neutrophils (Bld) [#/Vol] 6.4 10*3/uL 2.0-7.7 [facility] Neutrophils/100 WBC (Bld) 71.9 % 47-70 [facility] WBC (Bld) [#/Vol] 8.9 10*3/uL 4.4-11.0 [facility] Blood erythrocytes count (nu mber/volume)Ordered By: Renard Burgos on 05-03-2022 RBC (Bld) [#/Vol] 4.65 10*6/uL 4.6-6.2 [facility] Blood hemoglobin measurement (mass/volume)Ordered By: Renard Burgos on 05-03-2022 Hemoglobin (Bld) [Mass/Vol] 14.5 g/dL 13.0-16.5 [facility] Blood lymphocytes/100 leukoc ytesOrdered By: Renard Burgos on 05-03-2022 Lymphocytes/100 WBC (Bld) 20.9 % 19-41 [facility] Blood monocytes/100 leukocyt esOrdered By: Renard Burgos on 05-03-2022 Monocytes/100 WBC (Bld) 6.2 % 0-10 [facility] Blood platelet mean volumeOr dered By: Renard Burgos on 05-03-2022 Platelet mean volume (Bld) [Entitic vol] 11.1 fL 6.2-12.0 [facility] Determination of erythrocyte mean corpuscular volume (MCV)Ordered By: Renard Burgos on 05-03-2022 MCV (RBC) [Entitic vol] 90.1 fL 80-94 [facility] Hematocrit Auto (Bld) [Volum e fraction]Ordered By: Renard Burgos on 05-03-2022 Hematocrit (Bld) [Volume fraction] 41.9 % 40-54 [facility] - Hematology and Cell countsOrdered By: Renard Burgos on 05-03-2022 Erythrocyte distribution width (RBC) [Entitic vol] 39.7 fL 35.1-43.9 [facility] Erythrocyte distribution width (RBC) [Ratio] 12.2 % 11.6-14.6 [facility] Immature granulocytes/100 WBC (Bld) 0.400 % 0.0-0.9 [facility] Comment on above: IG% - Immature Granu locytes (promyelocytes, myelocytes and metamyelocytes) > 1% indicates that a LEFT SHIFT is Present. MCH (RBC) [Entitic mass] 31.2 pg 27.0-32.0 [facility] Nucleated RBC/100 WBC (Bld) [Ratio] 0 % 0-5 [facility] MCHC Auto (RBC) [Mass/Vol]Or dered By: Renard Burgos on 05-03-2022 MCHC (RBC) [Mass/Vol] 34.6 g/dL 32-36 [facility] Platelets bldOrdered By: Lyubov Burgos on 05-03-2022 Platelets (Bld) [#/Vol] 203 10*3/uL 150-450 [facility] Absolute lymphocyte countOrd ered By: Renard Burgos on 04-26-2022 Lymphocytes Auto (Unsp spec) [#/Vol] 2.79 10*3/uL 0.83-4.51 [facility] Basophil percentageOrdered B y: Renard Burgos on 04-26-2022 Basophils/100 WBC (Bld) 0.4 % 0-1 [facility] Eosinophils/100 WBC (Bld) 0.4 % 0-5 [facility] Neutrophils (Bld) [#/Vol] 5.9 10*3/uL 2.0-7.7 [facility] Neutrophils/100 WBC (Bld) 60.9 % 47-70 [facility] WBC (Bld) [#/Vol] 9.7 10*3/uL 4.4-11.0 [facility] Blood erythrocytes count (nu mber/volume)Ordered By: Renard Burgos on 04-26-2022 RBC (Bld) [#/Vol] 4.92 10*6/uL 4.6-6.2 [facility] Blood hemoglobin measurement (mass/volume)Ordered By: Renard Burgos on 04-26-2022 Hemoglobin (Bld) [Mass/Vol] 15.2 g/dL 13.0-16.5 [facility] Blood lymphocytes/100 leukoc ytesOrdered By: Renard Burgos on 04-26-2022 Lymphocytes/100 WBC (Bld) 28.9 % 19-41 [facility] Blood monocytes/100 leukocyt esOrdered By: Renard Burgos on 04-26-2022 Monocytes/100 WBC (Bld) 9.0 % 0-10 [facility] Blood platelet mean volumeOr dered By: Renard Burgos on 04-26-2022 Platelet mean volume (Bld) [Entitic vol] 11.0 fL 6.2-12.0 [facility] Determination of erythrocyte mean corpuscular volume (MCV)Ordered By: Renard Burgos on 04-26-2022 MCV (RBC) [Entitic vol] 92.3 fL 80-94 [facility] Hematocrit Auto (Bld) [Volum e fraction]Ordered By: Renard Burgos on 04-26-2022 Hematocrit (Bld) [Volume fraction] 45.4 % 40-54 [facility] - Hematology and Cell countsOrdered By: Renard Burgos on 04-26-2022 Erythrocyte distribution width (RBC) [Entitic vol] 42.1 fL 35.1-43.9 [facility] Erythrocyte distribution width (RBC) [Ratio] 12.5 % 11.6-14.6 [facility] Immature granulocytes/100 WBC (Bld) 0.400 % 0.0-0.9 [facility] Comment on above: IG% - Immature Granu locytes (promyelocytes, myelocytes and metamyelocytes) > 1% indicates that a LEFT SHIFT is Present. MCH (RBC) [Entitic mass] 30.9 pg 27.0-32.0 [facility] Nucleated RBC/100 WBC (Bld) [Ratio] 0 % 0-5 [facility] MCHC Auto (RBC) [Mass/Vol]Or dered By: Renard Burgos on 04-26-2022 MCHC (RBC) [Mass/Vol] 33.5 g/dL 32-36 [facility] Platelets bldOrdered By: Lyubov Burgos on 04-26-2022 Platelets (Bld) [#/Vol] 178 10*3/uL 150-450 [facility] Absolute lymphocyte countOrd ered By: Renard Burgos on 04-18-2022 Lymphocytes Auto (Unsp spec) [#/Vol] 2.03 10*3/uL 0.83-4.51 [facility] Basophil percentageOrdered B y: Renard Burgos on 04-18-2022 Basophils/100 WBC (Bld) 0.6 % 0-1 [facility] Eosinophils/100 WBC (Bld) 0.6 % 0-5 [facility] Neutrophils (Bld) [#/Vol] 4.5 10*3/uL 2.0-7.7 [facility] Neutrophils/100 WBC (Bld) 62.0 % 47-70 [facility] WBC (Bld) [#/Vol] 7.2 10*3/uL 4.4-11.0 [facility] Blood erythrocytes count (nu mber/volume)Ordered By: Renard Burgos on 04-18-2022 RBC (Bld) [#/Vol] 4.67 10*6/uL 4.6-6.2 [facility] Blood hemoglobin measurement (mass/volume)Ordered By: Renard Burgos on 04-18-2022 Hemoglobin (Bld) [Mass/Vol] 14.5 g/dL 13.0-16.5 [facility] Blood lymphocytes/100 leukoc ytesOrdered By: Renard Burgos on 04-18-2022 Lymphocytes/100 WBC (Bld) 28.2 % 19-41 [facility] Blood monocytes/100 leukocyt esOrdered By: Renard Burgos on 04-18-2022 Monocytes/100 WBC (Bld) 8.2 % 0-10 [facility] Blood platelet mean volumeOr dered By: Renard Burgos on 04-18-2022 Platelet mean volume (Bld) [Entitic vol] 11.2 fL 6.2-12.0 [facility] Determination of erythrocyte mean corpuscular volume (MCV)Ordered By: Renard Burgos on 04-18-2022 MCV (RBC) [Entitic vol] 90.8 fL 80-94 [facility] Hematocrit Auto (Bld) [Volum e fraction]Ordered By: Renard Burgos on 04-18-2022 Hematocrit (Bld) [Volume fraction] 42.4 % 40-54 [facility] - Hematology and Cell countsOrdered By: Renard Burgos on 04-18-2022 Erythrocyte distribution width (RBC) [Entitic vol] 41.1 fL 35.1-43.9 [facility] Erythrocyte distribution width (RBC) [Ratio] 12.5 % 11.6-14.6 [facility] Immature granulocytes/100 WBC (Bld) 0.400 % 0.0-0.9 [facility] Comment on above: IG% - Immature Granu locytes (promyelocytes, myelocytes and metamyelocytes) > 1% indicates that a LEFT SHIFT is Present. MCH (RBC) [Entitic mass] 31.0 pg 27.0-32.0 [facility] Nucleated RBC/100 WBC (Bld) [Ratio] 0 % 0-5 [facility] MCHC Auto (RBC) [Mass/Vol]Or dered By: Renard Burgos on 04-18-2022 MCHC (RBC) [Mass/Vol] 34.2 g/dL 32-36 [facility] Platelets bldOrdered By: Lyubov Burgos on 04-18-2022 Platelets (Bld) [#/Vol] 196 10*3/uL 150-450 [facility] Basophil percentageOrdered B y: Renard Burgos on 04-14-2022 Bilirubin [Mass/Vol] 0.40 mg/dL 0.20-1.00 [facility] Comment on above: For patients on eltr ombopag therapy, use of Dimension [place] TBIL is not recommended. Protein [Mass/Vol] 6.3 g/dL 6.4-8.2 [facility] Direct bilirubinOrdered By: Renard Burgos on 04-14-2022 Bilirubin.direct [Mass/Vol] 0.12 mg/dL 0.00-0.30 [facility] - Chemistry and C hemistry - challengeOrdered By: Renard Burgos on 04-14-2022 ALP [Catalytic activity/Vol] 117 U/L 45-117 [facility] ALT [Catalytic activity/Vol] 26 U/L 16-61 [facility] Globulin (S) [Mass/Vol] 3.2 g/dL 2.2-4.2 [facility] Serum or plasma albumin gordy urement (mass/volume)Ordered By: Renard Burgos on 04-14-2022 Albumin [Mass/Vol] 3.1 g/dL 3.2-5.0 [facility] Thin prep Papanicolaou smear with manual screeningOrdered By: Renard Burgos on 04-14-2022 Thin prep Papanicolaou smear with manual screening 12 U/L 15-37 [facility] Absolute lymphocyte countOrd ered By: Renard Burgos on 04-11-2022 Lymphocytes Auto (Unsp spec) [#/Vol] 2.16 10*3/uL 0.83-4.51 [facility] Basophil percentageOrdered B y: Renard Burgos on 04-11-2022 Basophils/100 WBC (Bld) 0.4 % 0-1 [facility] Eosinophils/100 WBC (Bld) 0.4 % 0-5 [facility] Neutrophils (Bld) [#/Vol] 4.2 10*3/uL 2.0-7.7 [facility] Neutrophils/100 WBC (Bld) 61.1 % 47-70 [facility] WBC (Bld) [#/Vol] 6.9 10*3/uL 4.4-11.0 [facility] Blood erythrocytes count (nu mber/volume)Ordered By: Renard Burgos on 04-11-2022 RBC (Bld) [#/Vol] 4.58 10*6/uL 4.6-6.2 [facility] Blood hemoglobin measurement (mass/volume)Ordered By: Renard Burgos on 04-11-2022 Hemoglobin (Bld) [Mass/Vol] 13.9 g/dL 13.0-16.5 [facility] Blood lymphocytes/100 leukoc ytesOrdered By: Renard Burgos on 04-11-2022 Lymphocytes/100 WBC (Bld) 31.2 % 19-41 [facility] Blood monocytes/100 leukocyt esOrdered By: Renard Burgos on 04-11-2022 Monocytes/100 WBC (Bld) 6.5 % 0-10 [facility] Blood platelet mean volumeOr dered By: Renard Burgos on 04-11-2022 Platelet mean volume (Bld) [Entitic vol] 11.4 fL 6.2-12.0 [facility] Determination of erythrocyte mean corpuscular volume (MCV)Ordered By: Renard Burgos on 04-11-2022 MCV (RBC) [Entitic vol] 91.9 fL 80-94 [facility] Hematocrit Auto (Bld) [Volum e fraction]Ordered By: Renard Burgos on 04-11-2022 Hematocrit (Bld) [Volume fraction] 42.1 % 40-54 [facility] - Hematology and Cell countsOrdered By: Renard Burgos on 04-11-2022 Erythrocyte distribution width (RBC) [Entitic vol] 41.5 fL 35.1-43.9 [facility] Erythrocyte distribution width (RBC) [Ratio] 12.3 % 11.6-14.6 [facility] Immature granulocytes/100 WBC (Bld) 0.400 % 0.0-0.9 [facility] Comment on above: IG% - Immature Granu locytes (promyelocytes, myelocytes and metamyelocytes) > 1% indicates that a LEFT SHIFT is Present. MCH (RBC) [Entitic mass] 30.3 pg 27.0-32.0 [facility] Nucleated RBC/100 WBC (Bld) [Ratio] 0 % 0-5 [facility] MCHC Auto (RBC) [Mass/Vol]Or dered By: Renard Burgos on 04-11-2022 MCHC (RBC) [Mass/Vol] 33.0 g/dL 32-36 [facility] Platelets bldOrdered By: Lyubov Burgos on 04-11-2022 Platelets (Bld) [#/Vol] 191 10*3/uL 150-450 [facility] Absolute lymphocyte countOrd ered By: Renard Burgos on 04-04-2022 Lymphocytes Auto (Unsp spec) [#/Vol] 1.99 10*3/uL 0.83-4.51 [facility] Basophil percentageOrdered B y: Renard Burgos on 04-04-2022 Basophils/100 WBC (Bld) 0.4 % 0-1 [facility] Cholesterol [Mass/Vol] 158 mg/dL <200 [facility] Comment on above: <200 mg/dL Desirable 200-240 mg/dL Borderline >240 mg/dL High Risk Eosinophils/100 WBC (Bld) 0.4 % 0-5 [facility] Neutrophils (Bld) [#/Vol] 4.9 10*3/uL 2.0-7.7 [facility] Neutrophils/100 WBC (Bld) 64.2 % 47-70 [facility] Triglyceride [Mass/Vol] 259 mg/dL <199 [facility] Comment on above: The drugs N-Acetylcy steine and Metamizole may falsely depress this assay.Serum Triglycerides Reference Interval Normal <150 mg/dL Borderline high 150 - 199 mg/dL High 200 - 499 mg/dL Very High > or = 500 mg/dL WBC (Bld) [#/Vol] 7.7 10*3/uL 4.4-11.0 [facility] Blood erythrocytes count (nu mber/volume)Ordered By: Renard Burgos on 04-04-2022 RBC (Bld) [#/Vol] 4.63 10*6/uL 4.6-6.2 [facility] Blood hemoglobin measurement (mass/volume)Ordered By: Renard Burgos on 04-04-2022 Hemoglobin (Bld) [Mass/Vol] 14.1 g/dL 13.0-16.5 [facility] Blood lymphocytes/100 leukoc ytesOrdered By: Renard Burgos on 04-04-2022 Lymphocytes/100 WBC (Bld) 25.9 % 19-41 [facility] Blood monocytes/100 leukocyt esOrdered By: Renard Burgos on 04-04-2022 Monocytes/100 WBC (Bld) 8.6 % 0-10 [facility] Blood platelet mean volumeOr dered By: Renard Burgos on 04-04-2022 Platelet mean volume (Bld) [Entitic vol] 11.3 fL 6.2-12.0 [facility] Determination of erythrocyte mean corpuscular volume (MCV)Ordered By: Renard Burgos on 04-04-2022 MCV (RBC) [Entitic vol] 90.7 fL 80-94 [facility] Hematocrit Auto (Bld) [Volum e fraction]Ordered By: Renard Burgos on 04-04-2022 Hematocrit (Bld) [Volume fraction] 42.0 % 40-54 [facility] - Hematology and Cell countsOrdered By: Renard Burgos on 04-04-2022 Erythrocyte distribution width (RBC) [Entitic vol] 41.3 fL 35.1-43.9 [facility] Erythrocyte distribution width (RBC) [Ratio] 12.4 % 11.6-14.6 [facility] Immature granulocytes/100 WBC (Bld) 0.500 % 0.0-0.9 [facility] Comment on above: IG% - Immature Granu locytes (promyelocytes, myelocytes and metamyelocytes) > 1% indicates that a LEFT SHIFT is Present. MCH (RBC) [Entitic mass] 30.5 pg 27.0-32.0 [facility] Nucleated RBC/100 WBC (Bld) [Ratio] 0 % 0-5 [facility] MCHC Auto (RBC) [Mass/Vol]Or dered By: Renard Burgos on 04-04-2022 MCHC (RBC) [Mass/Vol] 33.6 g/dL 32-36 [facility] Platelets bldOrdered By: Pet lizy Burgos on 04-04-2022 Platelets (Bld) [#/Vol] 174 10*3/uL 150-450 [facility] Serum or plasma cholesterol in HDL measurement (mass/volume)Ordered By: Renard Burgos on 04-04-2022 Cholesterol in HDL [Mass/Vol] 26 mg/dL >40 [facility] Comment on above: The drugs N-Acetylcy steine and Metamizole may falsely depress this assay. Reference Range HDL <40 mg/dL Low HDL Cholesterol HDL >or= 60 mg/dL High HDL Cholesterol Serum or plasma cholesterol in VLDL measurement (mass/volume)Ordered By: Renard Burgos on 04-04-2022 Cholesterol in VLDL [Mass/Vol] 52 mg/dL 5-40 [facility] Serum or plasma low density lipoprotein (LDL) cholesterol measurement (mass/volume)Ordered By: Renard Burgos on 04-04-2022 Cholesterol in LDL [Mass/Vol] 80 mg/dL 0-130 [facility] Absolute lymphocyte countOrd ered By: Renard Burgos on 03-28-2022 Lymphocytes Auto (Unsp spec) [#/Vol] 2.25 10*3/uL 0.83-4.51 [facility] Basophil percentageOrdered B y: Renard Burgos on 03-28-2022 Basophils/100 WBC (Bld) 0.6 % 0-1 [facility] Eosinophils/100 WBC (Bld) 0.5 % 0-5 [facility] Neutrophils (Bld) [#/Vol] 4.8 10*3/uL 2.0-7.7 [facility] Neutrophils/100 WBC (Bld) 60.5 % 47-70 [facility] WBC (Bld) [#/Vol] 8.0 10*3/uL 4.4-11.0 [facility] Blood erythrocytes count (nu mber/volume)Ordered By: Renard Burgos on 03-28-2022 RBC (Bld) [#/Vol] 4.69 10*6/uL 4.6-6.2 [facility] Blood hemoglobin measurement (mass/volume)Ordered By: Renard Burgos on 03-28-2022 Hemoglobin (Bld) [Mass/Vol] 14.4 g/dL 13.0-16.5 [facility] Blood lymphocytes/100 leukoc ytesOrdered By: Renard Burgos on 03-28-2022 Lymphocytes/100 WBC (Bld) 28.1 % 19-41 [facility] Blood monocytes/100 leukocyt esOrdered By: Renard Burgos on 03-28-2022 Monocytes/100 WBC (Bld) 9.8 % 0-10 [facility] Blood platelet mean volumeOr dered By: Renard Burgos on 03-28-2022 Platelet mean volume (Bld) [Entitic vol] 10.8 fL 6.2-12.0 [facility] Determination of erythrocyte mean corpuscular volume (MCV)Ordered By: Renard Burgos on 03-28-2022 MCV (RBC) [Entitic vol] 92.1 fL 80-94 [facility] Hematocrit Auto (Bld) [Volum e fraction]Ordered By: Renard Burgos on 03-28-2022 Hematocrit (Bld) [Volume fraction] 43.2 % 40-54 [facility] - Hematology and Cell countsOrdered By: Renard Burgos on 03-28-2022 Erythrocyte distribution width (RBC) [Entitic vol] 42.0 fL 35.1-43.9 [facility] Erythrocyte distribution width (RBC) [Ratio] 12.5 % 11.6-14.6 [facility] Immature granulocytes/100 WBC (Bld) 0.500 % 0.0-0.9 [facility] Comment on above: IG% - Immature Granu locytes (promyelocytes, myelocytes and metamyelocytes) > 1% indicates that a LEFT SHIFT is Present. MCH (RBC) [Entitic mass] 30.7 pg 27.0-32.0 [facility] Nucleated RBC/100 WBC (Bld) [Ratio] 0 % 0-5 [facility] MCHC Auto (RBC) [Mass/Vol]Or dered By: Renard Burgos on 03-28-2022 MCHC (RBC) [Mass/Vol] 33.3 g/dL 32-36 [facility] Platelets bldOrdered By: Lyubov Burgos on 03-28-2022 Platelets (Bld) [#/Vol] 207 10*3/uL 150-450 [facility] Absolute lymphocyte countOrd ered By: Renard Burgos on 03-21-2022 Lymphocytes Auto (Unsp spec) [#/Vol] 1.98 10*3/uL 0.83-4.51 [facility] Basophil percentageOrdered B y: Renard Burgos on 03-21-2022 Basophils/100 WBC (Bld) 0.5 % 0-1 [facility] Eosinophils/100 WBC (Bld) 0.5 % 0-5 [facility] Neutrophils (Bld) [#/Vol] 4.9 10*3/uL 2.0-7.7 [facility] Neutrophils/100 WBC (Bld) 63.6 % 47-70 [facility] WBC (Bld) [#/Vol] 7.7 10*3/uL 4.4-11.0 [facility] Blood erythrocytes count (nu mber/volume)Ordered By: Renard Burgos on 03-21-2022 RBC (Bld) [#/Vol] 4.82 10*6/uL 4.6-6.2 [facility] Blood hemoglobin measurement (mass/volume)Ordered By: Renard Burgos on 03-21-2022 Hemoglobin (Bld) [Mass/Vol] 14.9 g/dL 13.0-16.5 [facility] Blood lymphocytes/100 leukoc ytesOrdered By: Renard Burgos on 03-21-2022 Lymphocytes/100 WBC (Bld) 25.7 % 19-41 [facility] Blood monocytes/100 leukocyt esOrdered By: Renard Burgos on 03-21-2022 Monocytes/100 WBC (Bld) 9.3 % 0-10 [facility] Blood platelet mean volumeOr dered By: Renard Burgos on 03-21-2022 Platelet mean volume (Bld) [Entitic vol] 10.8 fL 6.2-12.0 [facility] Determination of erythrocyte mean corpuscular volume (MCV)Ordered By: Renard Burgos on 03-21-2022 MCV (RBC) [Entitic vol] 90.7 fL 80-94 [facility] Hematocrit Auto (Bld) [Volum e fraction]Ordered By: Renard Burgos on 03-21-2022 Hematocrit (Bld) [Volume fraction] 43.7 % 40-54 [facility] - Hematology and Cell countsOrdered By: Renard Burgos on 03-21-2022 Erythrocyte distribution width (RBC) [Entitic vol] 40.8 fL 35.1-43.9 [facility] Erythrocyte distribution width (RBC) [Ratio] 12.4 % 11.6-14.6 [facility] Immature granulocytes/100 WBC (Bld) 0.400 % 0.0-0.9 [facility] Comment on above: IG% - Immature Granu locytes (promyelocytes, myelocytes and metamyelocytes) > 1% indicates that a LEFT SHIFT is Present. MCH (RBC) [Entitic mass] 30.9 pg 27.0-32.0 [facility] Nucleated RBC/100 WBC (Bld) [Ratio] 0 % 0-5 [facility] MCHC Auto (RBC) [Mass/Vol]Or dered By: Renard Burgos on 03-21-2022 MCHC (RBC) [Mass/Vol] 34.1 g/dL 32-36 [facility] Platelets bldOrdered By: Lyubov Burgos on 03-21-2022 Platelets (Bld) [#/Vol] 186 10*3/uL 150-450 [facility] Absolute lymphocyte countOrd ered By: Renard Burgos on 03-14-2022 Lymphocytes Auto (Unsp spec) [#/Vol] 2.18 10*3/uL 0.83-4.51 [facility] Basophil percentageOrdered B y: Renard Burgos on 03-14-2022 Basophils/100 WBC (Bld) 0.4 % 0-1 [facility] Eosinophils/100 WBC (Bld) 0.6 % 0-5 [facility] Neutrophils (Bld) [#/Vol] 4.3 10*3/uL 2.0-7.7 [facility] Neutrophils/100 WBC (Bld) 58.8 % 47-70 [facility] WBC (Bld) [#/Vol] 7.3 10*3/uL 4.4-11.0 [facility] Blood erythrocytes count (nu mber/volume)Ordered By: Renard Burgos on 03-14-2022 RBC (Bld) [#/Vol] 4.80 10*6/uL 4.6-6.2 [facility] Blood hemoglobin measurement (mass/volume)Ordered By: Renard Burgos on 03-14-2022 Hemoglobin (Bld) [Mass/Vol] 14.5 g/dL 13.0-16.5 [facility] Blood lymphocytes/100 leukoc ytesOrdered By: Renard Burgos on 03-14-2022 Lymphocytes/100 WBC (Bld) 30.1 % 19-41 [facility] Blood monocytes/100 leukocyt esOrdered By: Renard Burgos on 03-14-2022 Monocytes/100 WBC (Bld) 9.5 % 0-10 [facility] Blood platelet mean volumeOr dered By: Renard Burgos on 03-14-2022 Platelet mean volume (Bld) [Entitic vol] 11.0 fL 6.2-12.0 [facility] Determination of erythrocyte mean corpuscular volume (MCV)Ordered By: Renard Burgos on 03-14-2022 MCV (RBC) [Entitic vol] 91.5 fL 80-94 [facility] Hematocrit Auto (Bld) [Volum e fraction]Ordered By: Renard Burgos on 03-14-2022 Hematocrit (Bld) [Volume fraction] 43.9 % 40-54 [facility] - Hematology and Cell countsOrdered By: Renard Burgos on 03-14-2022 Erythrocyte distribution width (RBC) [Entitic vol] 41.1 fL 35.1-43.9 [facility] Erythrocyte distribution width (RBC) [Ratio] 12.4 % 11.6-14.6 [facility] Immature granulocytes/100 WBC (Bld) 0.600 % 0.0-0.9 [facility] Comment on above: IG% - Immature Granu locytes (promyelocytes, myelocytes and metamyelocytes) > 1% indicates that a LEFT SHIFT is Present. MCH (RBC) [Entitic mass] 30.2 pg 27.0-32.0 [facility] Nucleated RBC/100 WBC (Bld) [Ratio] 0 % 0-5 [facility] MCHC Auto (RBC) [Mass/Vol]Or dered By: Renard Burgos on 03-14-2022 MCHC (RBC) [Mass/Vol] 33.0 g/dL 32-36 [facility] Platelets bldOrdered By: Lyubov Burgos on 03-14-2022 Platelets (Bld) [#/Vol] 201 10*3/uL 150-450 [facility] Absolute lymphocyte countOrd ered By: Renard Burgos on 2022 Lymphocytes Auto (Unsp spec) [#/Vol] 1.97 10*3/uL 0.83-4.51 [facility] Basophil percentageOrdered B y: Renard Burgos on 2022 Basophils/100 WBC (Bld) 0.6 % 0-1 [facility] Eosinophils/100 WBC (Bld) 0.4 % 0-5 [facility] Neutrophils (Bld) [#/Vol] 4.3 10*3/uL 2.0-7.7 [facility] Neutrophils/100 WBC (Bld) 61.3 % 47-70 [facility] WBC (Bld) [#/Vol] 7.0 10*3/uL 4.4-11.0 [facility] Blood erythrocytes count (nu mber/volume)Ordered By: Renard Burgos on 2022 RBC (Bld) [#/Vol] 4.78 10*6/uL 4.6-6.2 [facility] Blood hemoglobin measurement (mass/volume)Ordered By: Renard Burgos on 2022 Hemoglobin (Bld) [Mass/Vol] 14.4 g/dL 13.0-16.5 [facility] Blood lymphocytes/100 leukoc ytesOrdered By: Renard Burgos on 2022 Lymphocytes/100 WBC (Bld) 28.3 % 19-41 [facility] Blood monocytes/100 leukocyt esOrdered By: Renard Burgos on 2022 Monocytes/100 WBC (Bld) 9.1 % 0-10 [facility] Blood platelet mean volumeOr dered By: Renard Burgos on 2022 Platelet mean volume (Bld) [Entitic vol] 11.1 fL 6.2-12.0 [facility] Determination of erythrocyte mean corpuscular volume (MCV)Ordered By: Renard Burgos on 2022 MCV (RBC) [Entitic vol] 91.2 fL 80-94 [facility] Hematocrit Auto (Bld) [Volum e fraction]Ordered By: Renard Burgos on 2022 Hematocrit (Bld) [Volume fraction] 43.6 % 40-54 [facility] - Hematology and Cell countsOrdered By: Renard Burgso on 2022 Erythrocyte distribution width (RBC) [Entitic vol] 42.0 fL 35.1-43.9 [facility] Erythrocyte distribution width (RBC) [Ratio] 12.6 % 11.6-14.6 [facility] Immature granulocytes/100 WBC (Bld) 0.300 % 0.0-0.9 [facility] Comment on above: IG% - Immature Granu locytes (promyelocytes, myelocytes and metamyelocytes) > 1% indicates that a LEFT SHIFT is Present. MCH (RBC) [Entitic mass] 30.1 pg 27.0-32.0 [facility] Nucleated RBC/100 WBC (Bld) [Ratio] 0 % 0-5 [facility] MCHC Auto (RBC) [Mass/Vol]Or dered By: Renard Burgos on 2022 MCHC (RBC) [Mass/Vol] 33.0 g/dL 32-36 [facility] Platelets bldOrdered By: Lyubov Burgos on 2022 Platelets (Bld) [#/Vol] 210 10*3/uL 150-450 [facility] Absolute lymphocyte countOrd ered By: Renard Burgos on 02-28-2022 Lymphocytes Auto (Unsp spec) [#/Vol] 1.85 10*3/uL 0.83-4.51 [facility] Basophil percentageOrdered B y: Renard Burgos on 02-28-2022 Basophils/100 WBC (Bld) 0.4 % 0-1 [facility] Eosinophils/100 WBC (Bld) 0.4 % 0-5 [facility] Neutrophils (Bld) [#/Vol] 5.3 10*3/uL 2.0-7.7 [facility] Neutrophils/100 WBC (Bld) 67.8 % 47-70 [facility] WBC (Bld) [#/Vol] 7.8 10*3/uL 4.4-11.0 [facility] Blood erythrocytes count (nu mber/volume)Ordered By: Renard Burgos on 02-28-2022 RBC (Bld) [#/Vol] 4.58 10*6/uL 4.6-6.2 [facility] Blood hemoglobin measurement (mass/volume)Ordered By: Renard Burgos on 02-28-2022 Hemoglobin (Bld) [Mass/Vol] 14.3 g/dL 13.0-16.5 [facility] Blood lymphocytes/100 leukoc ytesOrdered By: Renard Burgos on 02-28-2022 Lymphocytes/100 WBC (Bld) 23.8 % 19-41 [facility] Blood monocytes/100 leukocyt esOrdered By: Renard Burgos on 02-28-2022 Monocytes/100 WBC (Bld) 7.2 % 0-10 [facility] Blood platelet mean volumeOr dered By: Renard Burgos on 02-28-2022 Platelet mean volume (Bld) [Entitic vol] 10.8 fL 6.2-12.0 [facility] Determination of erythrocyte mean corpuscular volume (MCV)Ordered By: Renard Burgos on 02-28-2022 MCV (RBC) [Entitic vol] 91.5 fL 80-94 [facility] Hematocrit Auto (Bld) [Volum e fraction]Ordered By: Renard Burgos on 02-28-2022 Hematocrit (Bld) [Volume fraction] 41.9 % 40-54 [facility] - Hematology and Cell countsOrdered By: Renard Burgos on 02-28-2022 Erythrocyte distribution width (RBC) [Entitic vol] 42.2 fL 35.1-43.9 [facility] Erythrocyte distribution width (RBC) [Ratio] 12.7 % 11.6-14.6 [facility] Immature granulocytes/100 WBC (Bld) 0.400 % 0.0-0.9 [facility] Comment on above: IG% - Immature Granu locytes (promyelocytes, myelocytes and metamyelocytes) > 1% indicates that a LEFT SHIFT is Present. MCH (RBC) [Entitic mass] 31.2 pg 27.0-32.0 [facility] Nucleated RBC/100 WBC (Bld) [Ratio] 0 % 0-5 [facility] MCHC Auto (RBC) [Mass/Vol]Or dered By: Renard Burgos on 02-28-2022 MCHC (RBC) [Mass/Vol] 34.1 g/dL 32-36 [facility] Platelets bldOrdered By: Lyubov lizy Loretta on 02-28-2022 Platelets (Bld) [#/Vol] 202 10*3/uL 150-450 [facility] Absolute lymphocyte countOrd ered By: Renard Burgos on 02-21-2022 Lymphocytes Auto (Unsp spec) [#/Vol] 1.93 10*3/uL 0.83-4.51 [facility] Basophil percentageOrdered B y: Renard Burgos on 02-21-2022 Basophils/100 WBC (Bld) 0.4 % 0-1 [facility] Eosinophils/100 WBC (Bld) 0.4 % 0-5 [facility] Neutrophils (Bld) [#/Vol] 4.6 10*3/uL 2.0-7.7 [facility] Neutrophils/100 WBC (Bld) 63.4 % 47-70 [facility] WBC (Bld) [#/Vol] 7.2 10*3/uL 4.4-11.0 [facility] Blood erythrocytes count (nu mber/volume)Ordered By: Renard Burgos on 02-21-2022 RBC (Bld) [#/Vol] 4.54 10*6/uL 4.6-6.2 [facility] Blood hemoglobin measurement (mass/volume)Ordered By: Renard Burgos on 02-21-2022 Hemoglobin (Bld) [Mass/Vol] 14.1 g/dL 13.0-16.5 [facility] Blood lymphocytes/100 leukoc ytesOrdered By: Renard Burgos on 02-21-2022 Lymphocytes/100 WBC (Bld) 26.7 % 19-41 [facility] Blood monocytes/100 leukocyt esOrdered By: Renard Burgos on 02-21-2022 Monocytes/100 WBC (Bld) 8.8 % 0-10 [facility] Blood platelet mean volumeOr dered By: Renard Burgos on 02-21-2022 Platelet mean volume (Bld) [Entitic vol] 11.1 fL 6.2-12.0 [facility] Determination of erythrocyte mean corpuscular volume (MCV)Ordered By: Renard Burgos on 02-21-2022 MCV (RBC) [Entitic vol] 91.4 fL 80-94 [facility] Hematocrit Auto (Bld) [Volum e fraction]Ordered By: Renard Burgos on 02-21-2022 Hematocrit (Bld) [Volume fraction] 41.5 % 40-54 [facility] - Hematology and Cell countsOrdered By: Renard Burgos on 02-21-2022 Erythrocyte distribution width (RBC) [Entitic vol] 41.9 fL 35.1-43.9 [facility] Erythrocyte distribution width (RBC) [Ratio] 12.6 % 11.6-14.6 [facility] Immature granulocytes/100 WBC (Bld) 0.300 % 0.0-0.9 [facility] Comment on above: IG% - Immature Granu locytes (promyelocytes, myelocytes and metamyelocytes) > 1% indicates that a LEFT SHIFT is Present. MCH (RBC) [Entitic mass] 31.1 pg 27.0-32.0 [facility] Nucleated RBC/100 WBC (Bld) [Ratio] 0 % 0-5 [facility] MCHC Auto (RBC) [Mass/Vol]Or dered By: Renard Burgos on 02-21-2022 MCHC (RBC) [Mass/Vol] 34.0 g/dL 32-36 [facility] Platelets bldOrdered By: Lyubov Burgos on 02-21-2022 Platelets (Bld) [#/Vol] 189 10*3/uL 150-450 [facility] Absolute lymphocyte countOrd ered By: Renard Burgos on 02-14-2022 Lymphocytes Auto (Unsp spec) [#/Vol] 2.00 10*3/uL 0.83-4.51 [facility] Basophil percentageOrdered B y: Renard Burgos on 02-14-2022 Basophils/100 WBC (Bld) 0.6 % 0-1 [facility] Eosinophils/100 WBC (Bld) 0.3 % 0-5 [facility] Neutrophils (Bld) [#/Vol] 6.4 10*3/uL 2.0-7.7 [facility] Neutrophils/100 WBC (Bld) 69.5 % 47-70 [facility] WBC (Bld) [#/Vol] 9.3 10*3/uL 4.4-11.0 [facility] Blood erythrocytes count (nu mber/volume)Ordered By: Renard Burgos on 02-14-2022 RBC (Bld) [#/Vol] 4.65 10*6/uL 4.6-6.2 [facility] Blood hemoglobin measurement (mass/volume)Ordered By: Renard Burgos on 02-14-2022 Hemoglobin (Bld) [Mass/Vol] 14.6 g/dL 13.0-16.5 [facility] Blood lymphocytes/100 leukoc ytesOrdered By: Renard Burgos on 02-14-2022 Lymphocytes/100 WBC (Bld) 21.6 % 19-41 [facility] Blood monocytes/100 leukocyt esOrdered By: Renard Burgos on 02-14-2022 Monocytes/100 WBC (Bld) 7.6 % 0-10 [facility] Blood platelet mean volumeOr dered By: Renard Burgos on 02-14-2022 Platelet mean volume (Bld) [Entitic vol] 11.1 fL 6.2-12.0 [facility] Determination of erythrocyte mean corpuscular volume (MCV)Ordered By: Renard Burgos on 02-14-2022 MCV (RBC) [Entitic vol] 91.8 fL 80-94 [facility] Hematocrit Auto (Bld) [Volum e fraction]Ordered By: Renard Burgos on 02-14-2022 Hematocrit (Bld) [Volume fraction] 42.7 % 40-54 [facility] - Hematology and Cell countsOrdered By: Renard Burgos on 02-14-2022 Erythrocyte distribution width (RBC) [Entitic vol] 43.7 fL 35.1-43.9 [facility] Erythrocyte distribution width (RBC) [Ratio] 13.0 % 11.6-14.6 [facility] Immature granulocytes/100 WBC (Bld) 0.400 % 0.0-0.9 [facility] Comment on above: IG% - Immature Granu locytes (promyelocytes, myelocytes and metamyelocytes) > 1% indicates that a LEFT SHIFT is Present. MCH (RBC) [Entitic mass] 31.4 pg 27.0-32.0 [facility] Nucleated RBC/100 WBC (Bld) [Ratio] 0 % 0-5 [facility] MCHC Auto (RBC) [Mass/Vol]Or dered By: Renard Burgos on 02-14-2022 MCHC (RBC) [Mass/Vol] 34.2 g/dL 32-36 [facility] Platelets bldOrdered By: Lyubov Burgos on 02-14-2022 Platelets (Bld) [#/Vol] 187 10*3/uL 150-450 [facility] Absolute lymphocyte countOrd ered By: Renard Burgos on 02-07-2022 Lymphocytes Auto (Unsp spec) [#/Vol] 1.97 10*3/uL 0.83-4.51 [facility] Basophil percentageOrdered B y: Renard Burgos on 02-07-2022 Basophils/100 WBC (Bld) 0.4 % 0-1 [facility] Eosinophils/100 WBC (Bld) 0.3 % 0-5 [facility] Neutrophils (Bld) [#/Vol] 4.2 10*3/uL 2.0-7.7 [facility] Neutrophils/100 WBC (Bld) 61.8 % 47-70 [facility] WBC (Bld) [#/Vol] 6.8 10*3/uL 4.4-11.0 [facility] Blood erythrocytes count (nu mber/volume)Ordered By: Renard Burgos on 02-07-2022 RBC (Bld) [#/Vol] 4.86 10*6/uL 4.6-6.2 [facility] Blood hemoglobin measurement (mass/volume)Ordered By: Renard Burgos on 02-07-2022 Hemoglobin (Bld) [Mass/Vol] 15.4 g/dL 13.0-16.5 [facility] Blood lymphocytes/100 leukoc ytesOrdered By: Renard Burgos on 02-07-2022 Lymphocytes/100 WBC (Bld) 29.1 % 19-41 [facility] Blood monocytes/100 leukocyt esOrdered By: Renard Burgos on 02-07-2022 Monocytes/100 WBC (Bld) 8.1 % 0-10 [facility] Blood platelet mean volumeOr dered By: Renard Burgos on 02-07-2022 Platelet mean volume (Bld) [Entitic vol] 11.0 fL 6.2-12.0 [facility] Determination of erythrocyte mean corpuscular volume (MCV)Ordered By: Renard Burgos on 02-07-2022 MCV (RBC) [Entitic vol] 92.6 fL 80-94 [facility] Hematocrit Auto (Bld) [Volum e fraction]Ordered By: Renard Burgos on 02-07-2022 Hematocrit (Bld) [Volume fraction] 45.0 % 40-54 [facility] - Hematology and Cell countsOrdered By: Renard Burgos on 02-07-2022 Erythrocyte distribution width (RBC) [Entitic vol] 43.1 fL 35.1-43.9 [facility] Erythrocyte distribution width (RBC) [Ratio] 12.7 % 11.6-14.6 [facility] Immature granulocytes/100 WBC (Bld) 0.300 % 0.0-0.9 [facility] Comment on above: IG% - Immature Granu locytes (promyelocytes, myelocytes and metamyelocytes) > 1% indicates that a LEFT SHIFT is Present. MCH (RBC) [Entitic mass] 31.7 pg 27.0-32.0 [facility] Nucleated RBC/100 WBC (Bld) [Ratio] 0 % 0-5 [facility] MCHC Auto (RBC) [Mass/Vol]Or dered By: Renard Burgos on 02-07-2022 MCHC (RBC) [Mass/Vol] 34.2 g/dL 32-36 [facility] Platelets bldOrdered By: Lyubov Burgos on 02-07-2022 Platelets (Bld) [#/Vol] 196 10*3/uL 150-450 [facility] Absolute lymphocyte countOrd ered By: Renard Burgos on 01-31-2022 Lymphocytes Auto (Unsp spec) [#/Vol] 2.19 10*3/uL 0.83-4.51 [facility] Basophil percentageOrdered B y: Renard Burgos on 01-31-2022 Basophils/100 WBC (Bld) 0.3 % 0-1 [facility] Eosinophils/100 WBC (Bld) 0.2 % 0-5 [facility] Neutrophils (Bld) [#/Vol] 5.7 10*3/uL 2.0-7.7 [facility] Neutrophils/100 WBC (Bld) 64.9 % 47-70 [facility] WBC (Bld) [#/Vol] 8.8 10*3/uL 4.4-11.0 [facility] Blood erythrocytes count (nu mber/volume)Ordered By: Renard Burgos on 01-31-2022 RBC (Bld) [#/Vol] 4.81 10*6/uL 4.6-6.2 [facility] Blood hemoglobin measurement (mass/volume)Ordered By: Renard Burgos on 01-31-2022 Hemoglobin (Bld) [Mass/Vol] 14.9 g/dL 13.0-16.5 [facility] Blood lymphocytes/100 leukoc ytesOrdered By: Renard Burgos on 01-31-2022 Lymphocytes/100 WBC (Bld) 24.9 % 19-41 [facility] Blood monocytes/100 leukocyt esOrdered By: Renard Burgos on 01-31-2022 Monocytes/100 WBC (Bld) 9.2 % 0-10 [facility] Blood platelet mean volumeOr dered By: Renard Burgos on 01-31-2022 Platelet mean volume (Bld) [Entitic vol] 11.0 fL 6.2-12.0 [facility] Determination of erythrocyte mean corpuscular volume (MCV)Ordered By: Renard Burgos on 01-31-2022 MCV (RBC) [Entitic vol] 92.9 fL 80-94 [facility] Hematocrit Auto (Bld) [Volum e fraction]Ordered By: Renard Burgos on 01-31-2022 Hematocrit (Bld) [Volume fraction] 44.7 % 40-54 [facility] - Hematology and Cell countsOrdered By: Renard Burgos on 01-31-2022 Erythrocyte distribution width (RBC) [Entitic vol] 42.9 fL 35.1-43.9 [facility] Erythrocyte distribution width (RBC) [Ratio] 12.6 % 11.6-14.6 [facility] Immature granulocytes/100 WBC (Bld) 0.500 % 0.0-0.9 [facility] Comment on above: IG% - Immature Granu locytes (promyelocytes, myelocytes and metamyelocytes) > 1% indicates that a LEFT SHIFT is Present. MCH (RBC) [Entitic mass] 31.0 pg 27.0-32.0 [facility] Nucleated RBC/100 WBC (Bld) [Ratio] 0 % 0-5 [facility] MCHC Auto (RBC) [Mass/Vol]Or dered By: Renard Burgos on 01-31-2022 MCHC (RBC) [Mass/Vol] 33.3 g/dL 32-36 [facility] Platelets bldOrdered By: Pet lizy Burgos on 01-31-2022 Platelets (Bld) [#/Vol] 204 10*3/uL 150-450 [facility] Absolute lymphocyte countOrd ered By: Renard Burgos on 01-24-2022 Lymphocytes Auto (Unsp spec) [#/Vol] 1.82 10*3/uL 0.83-4.51 [facility] Basophil percentageOrdered B y: Renard Burgos on 01-24-2022 Basophils/100 WBC (Bld) 0.3 % 0-1 [facility] Eosinophils/100 WBC (Bld) 0.3 % 0-5 [facility] Neutrophils (Bld) [#/Vol] 6.1 10*3/uL 2.0-7.7 [facility] Neutrophils/100 WBC (Bld) 69.9 % 47-70 [facility] WBC (Bld) [#/Vol] 8.7 10*3/uL 4.4-11.0 [facility] Blood erythrocytes count (nu mber/volume)Ordered By: Renard Burgos on 01-24-2022 RBC (Bld) [#/Vol] 4.74 10*6/uL 4.6-6.2 [facility] Blood hemoglobin measurement (mass/volume)Ordered By: Renard Burgos on 01-24-2022 Hemoglobin (Bld) [Mass/Vol] 14.5 g/dL 13.0-16.5 [facility] Blood lymphocytes/100 leukoc ytesOrdered By: Renard Burgos on 01-24-2022 Lymphocytes/100 WBC (Bld) 20.9 % 19-41 [facility] Blood monocytes/100 leukocyt esOrdered By: Renard Burgos on 01-24-2022 Monocytes/100 WBC (Bld) 8.4 % 0-10 [facility] Blood platelet mean volumeOr dered By: Renard Burgos on 01-24-2022 Platelet mean volume (Bld) [Entitic vol] 10.9 fL 6.2-12.0 [facility] Determination of erythrocyte mean corpuscular volume (MCV)Ordered By: Renard Burgos on 01-24-2022 MCV (RBC) [Entitic vol] 92.0 fL 80-94 [facility] Hematocrit Auto (Bld) [Volum e fraction]Ordered By: Renard Burgos on 01-24-2022 Hematocrit (Bld) [Volume fraction] 43.6 % 40-54 [facility] - Hematology and Cell countsOrdered By: Renard Burgos on 01-24-2022 Erythrocyte distribution width (RBC) [Entitic vol] 42.3 fL 35.1-43.9 [facility] Erythrocyte distribution width (RBC) [Ratio] 12.5 % 11.6-14.6 [facility] Immature granulocytes/100 WBC (Bld) 0.200 % 0.0-0.9 [facility] Comment on above: IG% - Immature Granu locytes (promyelocytes, myelocytes and metamyelocytes) > 1% indicates that a LEFT SHIFT is Present. MCH (RBC) [Entitic mass] 30.6 pg 27.0-32.0 [facility] Nucleated RBC/100 WBC (Bld) [Ratio] 0 % 0-5 [facility] MCHC Auto (RBC) [Mass/Vol]Or dered By: Renard Burgos on 01-24-2022 MCHC (RBC) [Mass/Vol] 33.3 g/dL 32-36 [facility] Platelets bldOrdered By: Lyubov Burgos on 01-24-2022 Platelets (Bld) [#/Vol] 192 10*3/uL 150-450 [facility] Absolute lymphocyte counton 01-17-2022 Lymphocytes Auto (Unsp spec) [#/Vol] 1.89 10*3/uL 0.83-4.51 [facility] Work Phone: Basophil percentageon 2021 Basophils/100 WBC (Bld) 0.4 % 0-1 [facility] Work Phone: Eosinophils/100 WBC (Bld) 0.3 % 0-5 [facility] Work Phone: Neutrophils (Bld) [#/Vol] 4.4 10*3/uL 2.0-7.7 [facility] Work Phone: Neutrophils/100 WBC (Bld) 62.4 % 47-70 [facility] Work Phone: WBC (Bld) [#/Vol] 7.0 10*3/uL 4.4-11.0 [facility] Work Phone: Blood erythrocytes count (nu mber/volume)on 01-17-2022 RBC (Bld) [#/Vol] 4.64 10*6/uL 4.6-6.2 [facility]: [phone] Blood hemoglobin measurement (mass/volume)on 01-17-2022 Hemoglobin (Bld) [Mass/Vol] 14.1 g/dL 13.0-16.5 [facility] Work Phone: Blood lymphocytes/100 leukoc yteson 01-17-2022 Lymphocytes/100 WBC (Bld) 27.0 % 19-41 [facility] Work Phone: Blood monocytes/100 leukocyt eson 01-17-2022 Monocytes/100 WBC (Bld) 9.3 % 0-10 [facility] Work Phone: Blood platelet mean volumeon 01-17-2022 Platelet mean volume (Bld) [Entitic vol] 11.1 fL 6.2-12.0 [facility] Work Phone: Determination of erythrocyte mean corpuscular volume (MCV)on 01-17-2022 MCV (RBC) [Entitic vol] 91.8 fL 80-94 [facility] Work Phone: Hematocrit Auto (Bld) [Volum e fraction]on 01-17-2022 Hematocrit (Bld) [Volume fraction] 42.6 % 40-54 [facility] Work Phone: Laboratory - Hematology and Cell countson 01-17-2022 Erythrocyte distribution width (RBC) [Entitic vol] 41.5 fL 35.1-43.9 [facility] Work Phone: Erythrocyte distribution width (RBC) [Ratio] 12.5 % 11.6-14.6 [facility] Work Phone: Immature granulocytes/100 WBC (Bld) 0.600 % 0.0-0.9 [facility] Work Phone: Comment on above: IG% - Immature Granu locytes (promyelocytes, myelocytes and metamyelocytes) > 1% indicates that a LEFT SHIFT is Present. MCH (RBC) [Entitic mass] 30.4 pg 27.0-32.0 [facility] Work Phone: Nucleated RBC/100 WBC (Bld) [Ratio] 0 % 0-5 [facility] Work Phone: MCHC Auto (RBC) [Mass/Vol]on 01-17-2022 MCHC (RBC) [Mass/Vol] 33.1 g/dL 32-36 [facility] Work Phone: Platelets bldon 01-17-2022 Platelets (Bld) [#/Vol] 200 10*3/uL 150-450 [facility] Work Phone: Absolute lymphocyte counton 01-10-2022 Lymphocytes Auto (Unsp spec) [#/Vol] 2.07 10*3/uL 0.83-4.51 [facility] Work Phone: Basophil percentageon 2021 Basophils/100 WBC (Bld) 0.6 % 0-1 [facility] Work Phone: Eosinophils/100 WBC (Bld) 0.3 % 0-5 [facility] Work Phone: Neutrophils (Bld) [#/Vol] 4.2 10*3/uL 2.0-7.7 [facility] Work Phone: Neutrophils/100 WBC (Bld) 59.2 % 47-70 [facility] Work Phone: WBC (Bld) [#/Vol] 7.0 10*3/uL 4.4-11.0 [facility] Work Phone: Blood erythrocytes count (nu mber/volume)on 01-10-2022 RBC (Bld) [#/Vol] 4.83 10*6/uL 4.6-6.2 [facility] Work Phone: Blood hemoglobin measurement (mass/volume)on 01-10-2022 Hemoglobin (Bld) [Mass/Vol] 14.8 g/dL 13.0-16.5 [facility] Work Phone: Blood lymphocytes/100 leukoc yteson 01-10-2022 Lymphocytes/100 WBC (Bld) 29.5 % 19-41 [facility] Work Phone: Blood monocytes/100 leukocyt eson 01-10-2022 Monocytes/100 WBC (Bld) 10.1 % 0-10 [facility] Work Phone: Blood platelet mean volumeon 01-10-2022 Platelet mean volume (Bld) [Entitic vol] 10.8 fL 6.2-12.0 [facility] Work Phone: Determination of erythrocyte mean corpuscular volume (MCV)on 01-10-2022 MCV (RBC) [Entitic vol] 97.5 fL 80-94 [facility] Work Phone: Hematocrit Auto (Bld) [Volum e fraction]on 01-10-2022 Hematocrit (Bld) [Volume fraction] 47.1 % 40-54 [facility] Work Phone: Laboratory - Hematology and Cell countson 09-12-2022 Erythrocyte distribution width (RBC) [Entitic vol] 44.9 fL 35.1-43.9 [facility] Work Phone: Erythrocyte distribution width (RBC) [Ratio] 12.7 % 11.6-14.6 [facility] Work Phone: Immature granulocytes/100 WBC (Bld) 0.300 % 0.0-0.9 [facility] Work Phone: Comment on above: IG% - Immature Granu locytes (promyelocytes, myelocytes and metamyelocytes) > 1% indicates that a LEFT SHIFT is Present. MCH (RBC) [Entitic mass] 30.6 pg 27.0-32.0 [facility] Work Phone: [phone] Nucleated RBC/100 WBC (Bld) [Ratio] 0 % 0-5 [facility] Work Phone: [phone] MCHC Auto (RBC) [Mass/Vol]on 01-10-2022 MCHC (RBC) [Mass/Vol] 31.4 g/dL 32-36 [facility] Work Phone: Platelets bldon 01-10-2022 Platelets (Bld) [#/Vol] 169 10*3/uL 150-450 [facility] Work Phone: Absolute lymphocyte counton 01-04-2022 Lymphocytes Auto (Unsp spec) [#/Vol] 1.84 10*3/uL 0.83-4.51 [facility] Work Phone: Basophil percentageon 2021 Basophils/100 WBC (Bld) 0.3 % 0-1 [facility] Work Phone: Eosinophils/100 WBC (Bld) 0.3 % 0-5 [facility] Work Phone: Neutrophils (Bld) [#/Vol] 4.8 10*3/uL 2.0-7.7 [facility] Work Phone: Neutrophils/100 WBC (Bld) 64.8 % 47-70 [facility] Work Phone: WBC (Bld) [#/Vol] 7.4 10*3/uL 4.4-11.0 [facility]: Blood erythrocytes count (nu mber/volume)on 01-04-2022 RBC (Bld) [#/Vol] 4.67 10*6/uL 4.6-6.2 [facility]: Blood hemoglobin measurement (mass/volume)on 01-04-2022 Hemoglobin (Bld) [Mass/Vol] 14.2 g/dL 13.0-16.5 [facility] Work Phone: Blood lymphocytes/100 leukoc yteson 01-04-2022 Lymphocytes/100 WBC (Bld) 25.0 % 19-41 [facility] Work Phone: Blood monocytes/100 leukocyt eson 01-04-2022 Monocytes/100 WBC (Bld) 9.1 % 0-10 [facility] Work Phone: Blood platelet mean volumeon 01-04-2022 Platelet mean volume (Bld) [Entitic vol] 11.0 fL 6.2-12.0 [facility] Work Phone: Determination of erythrocyte mean corpuscular volume (MCV)on 01-04-2022 MCV (RBC) [Entitic vol] 91.0 fL 80-94 [facility] Work Phone: Hematocrit Auto (Bld) [Volum e fraction]on 01-04-2022 Hematocrit (Bld) [Volume fraction] 42.5 % 40-54 [facility] Work Phone: Laboratory - Hematology and Cell countson 01-04-2022 Erythrocyte distribution width (RBC) [Entitic vol] 41.4 fL 35.1-43.9 [facility] Work Phone: Erythrocyte distribution width (RBC) [Ratio] 12.7 % 11.6-14.6 [facility] Work Phone: Immature granulocytes/100 WBC (Bld) 0.500 % 0.0-0.9 [facility] Work Phone: Comment on above: IG% - Immature Granu locytes (promyelocytes, myelocytes and metamyelocytes) > 1% indicates that a LEFT SHIFT is Present. MCH (RBC) [Entitic mass] 30.4 pg 27.0-32.0 [facility] Work Phone: Nucleated RBC/100 WBC (Bld) [Ratio] 0 % 0-5 [facility] Work Phone: MCHC Auto (RBC) [Mass/Vol]on 01-04-2022 MCHC (RBC) [Mass/Vol] 33.4 g/dL 32-36 [facility] Work Phone: Platelets bldon 01-04-2022 Platelets (Bld) [#/Vol] 184 10*3/uL 150-450 [facility] Work Phone: [phone] Absolute lymphocyte counton 12-27-2021 Lymphocytes Auto (Unsp spec) [#/Vol] 1.79 10*3/uL 0.83-4.51 [facility] Work Phone: Basophil percentageon 2021 Basophils/100 WBC (Bld) 0.4 % 0-1 [facility] Work Phone: Eosinophils/100 WBC (Bld) 0.4 % 0-5 [facility] Work Phone: Neutrophils (Bld) [#/Vol] 4.9 10*3/uL 2.0-7.7 [facility] Work Phone: Neutrophils/100 WBC (Bld) 65.2 % 47-70 [facility] Work Phone: WBC (Bld) [#/Vol] 7.6 10*3/uL 4.4-11.0 [facility] Work Phone: [phone] Blood erythrocytes count (nu mber/volume)on 12-27-2021 RBC (Bld) [#/Vol] 4.66 10*6/uL 4.6-6.2 [facility] Work [facility]: Blood hemoglobin measurement (mass/volume)on 12-27-2021 Hemoglobin (Bld) [Mass/Vol] 14.5 g/dL 13.0-16.5 [facility] Work Phone: Blood lymphocytes/100 leukoc yteson 12-27-2021 Lymphocytes/100 WBC (Bld) 23.6 % 19-41 [facility] Work Phone: Blood monocytes/100 leukocyt eson 12-27-2021 Monocytes/100 WBC (Bld) 10.0 % 0-10 [facility] Work Phone: Blood platelet mean volumeon 12-27-2021 Platelet mean volume (Bld) [Entitic vol] 10.9 fL 6.2-12.0 [facility] Work Phone: Determination of erythrocyte mean corpuscular volume (MCV)on 12-27-2021 MCV (RBC) [Entitic vol] 91.0 fL 80-94 [facility] Work Phone: Hematocrit Auto (Bld) [Volum e fraction]on 12-27-2021 Hematocrit (Bld) [Volume fraction] 42.4 % 40-54 [facility] Work Phone: Laboratory - Hematology and Cell countson 12-27-2021 Erythrocyte distribution width (RBC) [Entitic vol] 41.2 fL 35.1-43.9 [facility] Work Phone: Erythrocyte distribution width (RBC) [Ratio] 12.6 % 11.6-14.6 [facility] Work Phone: Immature granulocytes/100 WBC (Bld) 0.400 % 0.0-0.9 [facility] Work Phone: Comment on above: IG% - Immature Granu locytes (promyelocytes, myelocytes and metamyelocytes) > 1% indicates that a LEFT SHIFT is Present. MCH (RBC) [Entitic mass] 31.1 pg 27.0-32.0 [facility] Work Phone: Nucleated RBC/100 WBC (Bld) [Ratio] 0 % 0-5 [facility] Work Phone: [phone] MCHC Auto (RBC) [Mass/Vol]on 12-27-2021 MCHC (RBC) [Mass/Vol] 34.2 g/dL 32-36 [facility] Work Phone: Platelets bldon 12-27-2021 Platelets (Bld) [#/Vol] 185 10*3/uL 150-450 [facility] Work Phone: Absolute lymphocyte counton 12-20-2021 Lymphocytes Auto (Unsp spec) [#/Vol] 2.02 10*3/uL 0.83-4.51 [facility] Work Phone: [phone] Basophil percentageon 2021 Basophils/100 WBC (Bld) 0.2 % 0-1 [facility] Work Phone: Eosinophils/100 WBC (Bld) 0.3 % 0-5 [facility] Work Phone: [phone] Neutrophils (Bld) [#/Vol] 3.6 10*3/uL 2.0-7.7 [facility] Work Phone: [phone] Neutrophils/100 WBC (Bld) 57.8 % 47-70 [facility] Work Phone: WBC (Bld) [#/Vol] 6.1 10*3/uL 4.4-11.0 [facility] Work Phone: [phone] Blood erythrocytes count (nu mber/volume)on 12-20-2021 RBC (Bld) [#/Vol] 4.81 10*6/uL 4.6-6.2 [facility] Work Phone: [phone] Blood hemoglobin measurement (mass/volume)on 12-20-2021 Hemoglobin (Bld) [Mass/Vol] 14.8 g/dL 13.0-16.5 [facility] Work Phone: Blood lymphocytes/100 leukoc yteson 12-20-2021 Lymphocytes/100 WBC (Bld) 32.9 % 19-41 [facility] Work Phone: Blood monocytes/100 leukocyt eson 12-20-2021 Monocytes/100 WBC (Bld) 8.3 % 0-10 [facility] Work Phone: Blood platelet adequacy dete ction by light microscopyon 12-20-2021 Platelets LM Ql (Bld) ADEQUATE A[facility]Q [facility] Work Phone: Blood platelet mean volumeon 12-20-2021 Platelet mean volume (Bld) [Entitic vol] 11.1 fL 6.2-12.0 [facility] Work Phone: Determination of erythrocyte mean corpuscular volume (MCV)on 12-20-2021 MCV (RBC) [Entitic vol] 93.1 fL 80-94 [facility] Work Phone: Hematocrit Auto (Bld) [Volum e fraction]on 12-20-2021 Hematocrit (Bld) [Volume fraction] 44.8 % 40-54 [facility] Work Phone: Laboratory - Hematology and Cell countson 12-20-2021 Erythrocyte distribution width (RBC) [Entitic vol] 42.4 fL 35.1-43.9 [facility] Work Phone: Erythrocyte distribution width (RBC) [Ratio] 12.4 % 11.6-14.6 [facility] Work Phone: Immature granulocytes/100 WBC (Bld) 0.500 % 0.0-0.9 [facility] Work Phone: Comment on above: IG% - Immature Granu locytes (promyelocytes, myelocytes and metamyelocytes) > 1% indicates that a LEFT SHIFT is Present. MCH (RBC) [Entitic mass] 30.8 pg 27.0-32.0 [facility] Work Phone: Nucleated RBC/100 WBC (Bld) [Ratio] 0 % 0-5 [facility] Work Phone: MCHC Auto (RBC) [Mass/Vol]on 12-20-2021 MCHC (RBC) [Mass/Vol] 33.0 g/dL 32-36 [facility] Work Phone: Platelets bldon 12-20-2021 Platelets (Bld) [#/Vol] See comment 150-450 [facility] Work Phone: Comment on above: Please [...] Auto (Unsp spec) [#/Vol] 1.88 10*3/uL 0.83-4.51 [facility] Work Phone: Basophil percentageon 2021 Basophils/100 WBC (Bld) 0.6 % 0-1 [facility] Work Phone: Eosinophils/100 WBC (Bld) 0.3 % 0-5 [facility] Work Phone: Neutrophils (Bld) [#/Vol] 4.5 10*3/uL 2.0-7.7 [facility] Work Phone: Neutrophils/100 WBC (Bld) 63.6 % 47-70 [facility] Work Phone: [phone] WBC (Bld) [#/Vol] 7.1 10*3/uL 4.4-11.0 [facility] Work Phone: [phone] Blood erythrocytes count (nu mber/volume)on 12-13-2021 RBC (Bld) [#/Vol] 4.70 10*6/uL 4.6-6.2 [facility] Work Phone: Blood hemoglobin measurement (mass/volume)on 12-13-2021 Hemoglobin (Bld) [Mass/Vol] 14.4 g/dL 13.0-16.5 [facility] Work Phone: Blood lymphocytes/100 leukoc yteson 12-13-2021 Lymphocytes/100 WBC (Bld) 26.7 % 19-41 [facility] Work Phone: Blood monocytes/100 leukocyt eson 12-13-2021 Monocytes/100 WBC (Bld) 8.5 % 0-10 [facility] Work Phone: Blood platelet mean volumeon 12-13-2021 Platelet mean volume (Bld) [Entitic vol] 10.9 fL 6.2-12.0 [facility] Work Phone: Determination of erythrocyte mean corpuscular volume (MCV)on 12-13-2021 MCV (RBC) [Entitic vol] 90.9 fL 80-94 [facility] Work Phone: Hematocrit Auto (Bld) [Volum e fraction]on 12-13-2021 Hematocrit (Bld) [Volume fraction] 42.7 % 40-54 [facility] Work Phone: Laboratory - Hematology and Cell countson 12-13-2021 Erythrocyte distribution width (RBC) [Entitic vol] 42.1 fL 35.1-43.9 [facility] Work Phone: Erythrocyte distribution width (RBC) [Ratio] 12.6 % 11.6-14.6 [facility] Work Phone: Immature granulocytes/100 WBC (Bld) 0.300 % 0.0-0.9 [facility] Work Phone: Comment on above: IG% - Immature Granu locytes (promyelocytes, myelocytes and metamyelocytes) > 1% indicates that a LEFT SHIFT is Present. MCH (RBC) [Entitic mass] 30.6 pg 27.0-32.0 [facility] Work Phone: Nucleated RBC/100 WBC (Bld) [Ratio] 0 % 0-5 [facility] Work Phone: MCHC Auto (RBC) [Mass/Vol]on 12-13-2021 MCHC (RBC) [Mass/Vol] 33.7 g/dL 32-36 [facility] Work Phone: [phone] Platelets bldon 12-13-2021 Platelets (Bld) [#/Vol] 194 10*3/uL 150-450 [facility] Work Phone: Absolute lymphocyte counton 12-06-2021 Lymphocytes Auto (Unsp spec) [#/Vol] 1.91 10*3/uL 0.83-4.51 [facility] Work Phone: Basophil percentageon 2021 Basophils/100 WBC (Bld) 0.4 % 0-1 [facility] Work Phone: Eosinophils/100 WBC (Bld) 0.3 % 0-5 [facility] Work Phone: [phone] Neutrophils (Bld) [#/Vol] 4.4 10*3/uL 2.0-7.7 [facility] Work Phone: Neutrophils/100 WBC (Bld) 62.2 % 47-70 [facility] Work Phone: WBC (Bld) [#/Vol] 7.0 10*3/uL 4.4-11.0 [facility] Work Phone: [phone] Blood erythrocytes count (nu mber/volume)on 12-06-2021 RBC (Bld) [#/Vol] 4.58 10*6/uL 4.6-6.2 [facility] Work Phone: [phone] Blood hemoglobin measurement (mass/volume)on 12-06-2021 Hemoglobin (Bld) [Mass/Vol] 13.8 g/dL 13.0-16.5 [facility] Work Phone: Blood lymphocytes/100 leukoc yteson 12-06-2021 Lymphocytes/100 WBC (Bld) 27.2 % 19-41 [facility] Work Phone: [phone] Blood monocytes/100 leukocyt eson 12-06-2021 Monocytes/100 WBC (Bld) 9.6 % 0-10 [facility] Work Phone: Blood platelet mean volumeon 12-06-2021 Platelet mean volume (Bld) [Entitic vol] 11.1 fL 6.2-12.0 [facility] Work Phone: Determination of erythrocyte mean corpuscular volume (MCV)on 12-06-2021 MCV (RBC) [Entitic vol] 92.1 fL 80-94 [facility] Work Phone: Hematocrit Auto (Bld) [Volum e fraction]on 12-06-2021 Hematocrit (Bld) [Volume fraction] 42.2 % 40-54 [facility] Work Phone: Laboratory - Hematology and Cell countson 12-06-2021 Erythrocyte distribution width (RBC) [Entitic vol] 42.1 fL 35.1-43.9 [facility] Work Phone: Erythrocyte distribution width (RBC) [Ratio] 12.6 % 11.6-14.6 [facility] Work Phone: Immature granulocytes/100 WBC (Bld) 0.300 % 0.0-0.9 [facility] Work Phone: Comment on above: IG% - Immature Granu locytes (promyelocytes, myelocytes and metamyelocytes) > 1% indicates that a LEFT SHIFT is Present. MCH (RBC) [Entitic mass] 30.1 pg 27.0-32.0 [facility] Work Phone: Nucleated RBC/100 WBC (Bld) [Ratio] 0 % 0-5 [facility] Work Phone: MCHC Auto (RBC) [Mass/Vol]on 12-06-2021 MCHC (RBC) [Mass/Vol] 32.7 g/dL 32-36 [facility] Work Phone: Platelets bldon 12-06-2021 Platelets (Bld) [#/Vol] 180 10*3/uL 150-450 [facility] Work Phone: Absolute lymphocyte counton 11-29-2021 Lymphocytes Auto (Unsp spec) [#/Vol] 2.00 10*3/uL 0.83-4.51 [facility] Work Phone: Basophil percentageon 2021 Basophils/100 WBC (Bld) 0.4 % 0-1 [facility] Work Phone: [phone] Eosinophils/100 WBC (Bld) 0.3 % 0-5 [facility] Work Phone: [phone] Neutrophils (Bld) [#/Vol] 4.4 10*3/uL 2.0-7.7 [facility] Work Phone: Neutrophils/100 WBC (Bld) 62.8 % 47-70 [facility] Work Phone: [phone] WBC (Bld) [#/Vol] 7.0 10*3/uL 4.4-11.0 [facility] Work [facility]: Blood erythrocytes count (nu mber/volume)on 11-29-2021 RBC (Bld) [#/Vol] 4.72 10*6/uL 4.6-6.2 [facility] Work [facility]: Blood hemoglobin measurement (mass/volume)on 11-29-2021 Hemoglobin (Bld) [Mass/Vol] 14.6 g/dL 13.0-16.5 [facility] Work Phone: Blood lymphocytes/100 leukoc yteson 11-29-2021 Lymphocytes/100 WBC (Bld) 28.6 % 19-41 [facility] Work Phone: [phone] Blood monocytes/100 leukocyt eson 11-29-2021 Monocytes/100 WBC (Bld) 7.6 % 0-10 [facility] Work Phone: Blood platelet mean volumeon 11-29-2021 Platelet mean volume (Bld) [Entitic vol] 11.1 fL 6.2-12.0 [facility] Work Phone: Determination of erythrocyte mean corpuscular volume (MCV)on 11-29-2021 MCV (RBC) [Entitic vol] 91.9 fL 80-94 [facility] Work Phone: Hematocrit Auto (Bld) [Volum e fraction]on 11-29-2021 Hematocrit (Bld) [Volume fraction] 43.4 % 40-54 [facility] Work Phone: Laboratory - Hematology and Cell countson 11-29-2021 Erythrocyte distribution width (RBC) [Entitic vol] 41.8 fL 35.1-43.9 [facility] Work Phone: Erythrocyte distribution width (RBC) [Ratio] 12.4 % 11.6-14.6 [facility] Work Phone: Immature granulocytes/100 WBC (Bld) 0.300 % 0.0-0.9 [facility] Work Phone: Comment on above: IG% - Immature Granu locytes (promyelocytes, myelocytes and metamyelocytes) > 1% indicates that a LEFT SHIFT is Present. MCH (RBC) [Entitic mass] 30.9 pg 27.0-32.0 [facility] Work Phone: Nucleated RBC/100 WBC (Bld) [Ratio] 0 % 0-5 [facility] Work Phone: MCHC Auto (RBC) [Mass/Vol]on 11-29-2021 MCHC (RBC) [Mass/Vol] 33.6 g/dL 32-36 [facility] Work Phone: Platelets bldon 11-29-2021 Platelets (Bld) [#/Vol] 205 10*3/uL 150-450 [facility] Work Phone: Absolute lymphocyte counton 11-22-2021 Lymphocytes Auto (Unsp spec) [#/Vol] 2.25 10*3/uL 0.83-4.51 [facility] Work Phone: Basophil percentageon 2021 Basophils/100 WBC (Bld) 0.4 % 0-1 [facility] Work Phone: Eosinophils/100 WBC (Bld) 0.4 % 0-5 [facility] Work Phone: Neutrophils (Bld) [#/Vol] 5.1 10*3/uL 2.0-7.7 [facility] Work Phone: Neutrophils/100 WBC (Bld) 61.7 % 47-70 [facility] Work Phone: WBC (Bld) [#/Vol] 8.3 10*3/uL 4.4-11.0 [facility]: Blood erythrocytes count (nu mber/volume)on 11-22-2021 RBC (Bld) [#/Vol] 4.47 10*6/uL 4.6-6.2 [facility] Work [facility]: Blood hemoglobin measurement (mass/volume)on 11-22-2021 Hemoglobin (Bld) [Mass/Vol] 13.5 g/dL 13.0-16.5 [facility] Work Phone: Blood lymphocytes/100 leukoc yteson 11-22-2021 Lymphocytes/100 WBC (Bld) 27.2 % 19-41 [facility] Work Phone: Blood monocytes/100 leukocyt eson 11-22-2021 Monocytes/100 WBC (Bld) 9.9 % 0-10 [facility] Work Phone: Blood platelet mean volumeon 11-22-2021 Platelet mean volume (Bld) [Entitic vol] 11.1 fL 6.2-12.0 [facility] Work Phone: Determination of erythrocyte mean corpuscular volume (MCV)on 11-22-2021 MCV (RBC) [Entitic vol] 92.2 fL 80-94 [facility] Work Phone: Hematocrit Auto (Bld) [Volum e fraction]on 11-22-2021 Hematocrit (Bld) [Volume fraction] 41.2 % 40-54 [facility] Work Phone: Laboratory - Hematology and Cell countson 11-22-2021 Erythrocyte distribution width (RBC) [Entitic vol] 42.3 fL 35.1-43.9 [facility] Work Phone: [phone] Erythrocyte distribution width (RBC) [Ratio] 12.6 % 11.6-14.6 [facility] Work Phone: [phone] Immature granulocytes/100 WBC (Bld) 0.400 % 0.0-0.9 [facility] Work Phone: Comment on above: IG% - Immature Granu locytes (promyelocytes, myelocytes and metamyelocytes) > 1% indicates that a LEFT SHIFT is Present. MCH (RBC) [Entitic mass] 30.2 pg 27.0-32.0 [facility] Work Phone: Nucleated RBC/100 WBC (Bld) [Ratio] 0 % 0-5 [facility] Work Phone: MCHC Auto (RBC) [Mass/Vol]on 11-22-2021 MCHC (RBC) [Mass/Vol] 32.8 g/dL 32-36 [facility] Work Phone: [phone] Platelets bldon 11-22-2021 Platelets (Bld) [#/Vol] 190 10*3/uL 150-450 [facility] Work Phone: Absolute lymphocyte counton 11-15-2021 Lymphocytes Auto (Unsp spec) [#/Vol] 2.09 10*3/uL 0.83-4.51 [facility] Work Phone: [phone] Basophil percentageon 2021 Basophils/100 WBC (Bld) 0.6 % 0-1 [facility] Work Phone: Eosinophils/100 WBC (Bld) 0.4 % 0-5 [facility] Work Phone: [phone] Neutrophils (Bld) [#/Vol] 4.2 10*3/uL 2.0-7.7 [facility] Work Phone: Neutrophils/100 WBC (Bld) 59.1 % 47-70 [facility] Work Phone: WBC (Bld) [#/Vol] 7.1 10*3/uL 4.4-11.0 [facility] Work [facility]: Blood erythrocytes count (nu mber/volume)on 11-15-2021 RBC (Bld) [#/Vol] 4.72 10*6/uL 4.6-6.2 [facility] Work [facility]: Blood hemoglobin measurement (mass/volume)on 11-15-2021 Hemoglobin (Bld) [Mass/Vol] 14.6 g/dL 13.0-16.5 [facility] Work Phone: Blood lymphocytes/100 leukoc yteson 11-15-2021 Lymphocytes/100 WBC (Bld) 29.4 % 19-41 [facility] Work Phone: Blood monocytes/100 leukocyt eson 11-15-2021 Monocytes/100 WBC (Bld) 10.1 % 0-10 [facility] Work Phone: Blood platelet mean volumeon 11-15-2021 Platelet mean volume (Bld) [Entitic vol] 10.7 fL 6.2-12.0 [facility] Work Phone: Determination of erythrocyte mean corpuscular volume (MCV)on 11-15-2021 MCV (RBC) [Entitic vol] 91.9 fL 80-94 [facility] Work Phone: Hematocrit Auto (Bld) [Volum e fraction]on 11-15-2021 Hematocrit (Bld) [Volume fraction] 43.4 % 40-54 [facility] Work Phone: Laboratory - Hematology and Cell countson 11-15-2021 Erythrocyte distribution width (RBC) [Entitic vol] 41.9 fL 35.1-43.9 [facility] Work Phone: Erythrocyte distribution width (RBC) [Ratio] 12.4 % 11.6-14.6 [facility] Work Phone: [phone] Immature granulocytes/100 WBC (Bld) 0.400 % 0.0-0.9 [facility] Work Phone: Comment on above: IG% - Immature Granu locytes (promyelocytes, myelocytes and metamyelocytes) > 1% indicates that a LEFT SHIFT is Present. MCH (RBC) [Entitic mass] 30.9 pg 27.0-32.0 [facility] Work Phone: [phone] Nucleated RBC/100 WBC (Bld) [Ratio] 0 % 0-5 [facility] Work Phone: MCHC Auto (RBC) [Mass/Vol]on 11-15-2021 MCHC (RBC) [Mass/Vol] 33.6 g/dL 32-36 [facility] Work Phone: [phone] Platelets bldon 11-15-2021 Platelets (Bld) [#/Vol] 191 10*3/uL 150-450 [facility] Work Phone: [phone] Absolute lymphocyte counton 11-08-2021 Lymphocytes Auto (Unsp spec) [#/Vol] 1.97 10*3/uL 0.83-4.51 [facility] Work Phone: [phone] Basophil percentageon 2021 Basophils/100 WBC (Bld) 0.3 % 0-1 [facility] Work Phone: Eosinophils/100 WBC (Bld) 0.3 % 0-5 [facility] Work Phone: Neutrophils (Bld) [#/Vol] 5.1 10*3/uL 2.0-7.7 [facility] Work Phone: Neutrophils/100 WBC (Bld) 64.6 % 47-70 [facility] Work Phone: WBC (Bld) [#/Vol] 7.8 10*3/uL 4.4-11.0 [facility] Work Phone: Blood erythrocytes count (nu mber/volume)on 11-08-2021 RBC (Bld) [#/Vol] 4.53 10*6/uL 4.6-6.2 [facility] Work Phone: Blood hemoglobin measurement (mass/volume)on 11-08-2021 Hemoglobin (Bld) [Mass/Vol] 14.2 g/dL 13.0-16.5 [facility] Work Phone: Blood lymphocytes/100 leukoc yteson 11-08-2021 Lymphocytes/100 WBC (Bld) 25.2 % 19-41 [facility] Work Phone: Blood monocytes/100 leukocyt eson 11-08-2021 Monocytes/100 WBC (Bld) 9.3 % 0-10 [facility] Work Phone: Blood platelet mean volumeon 11-08-2021 Platelet mean volume (Bld) [Entitic vol] 10.9 fL 6.2-12.0 [facility] Work Phone: Determination of erythrocyte mean corpuscular volume (MCV)on 11-08-2021 MCV (RBC) [Entitic vol] 92.7 fL 80-94 [facility] Work Phone: Hematocrit Auto (Bld) [Volum e fraction]on 11-08-2021 Hematocrit (Bld) [Volume fraction] 42.0 % 40-54 [facility] Work Phone: Laboratory - Hematology and Cell countson 11-08-2021 Erythrocyte distribution width (RBC) [Entitic vol] 42.3 fL 35.1-43.9 [facility] Work Phone: Erythrocyte distribution width (RBC) [Ratio] 12.5 % 11.6-14.6 [facility] Work Phone: Immature granulocytes/100 WBC (Bld) 0.300 % 0.0-0.9 [facility] Work Phone: Comment on above: IG% - Immature Granu locytes (promyelocytes, myelocytes and metamyelocytes) > 1% indicates that a LEFT SHIFT is Present. MCH (RBC) [Entitic mass] 31.3 pg 27.0-32.0 [facility] Work Phone: [phone] Nucleated RBC/100 WBC (Bld) [Ratio] 0 % 0-5 [facility] Work Phone: MCHC Auto (RBC) [Mass/Vol]on 11-08-2021 MCHC (RBC) [Mass/Vol] 33.8 g/dL 32-36 [facility] Work Phone: Platelets bldon 11-08-2021 Platelets (Bld) [#/Vol] 207 10*3/uL 150-450 [facility] Work Phone: Absolute lymphocyte counton 10-25-2021 Lymphocytes Auto (Unsp spec) [#/Vol] 2.05 10*3/uL 0.83-4.51 [facility] Work Phone: Basophil percentageon 2021 Basophils/100 WBC (Bld) 0.4 % 0-1 [facility] Work Phone: Eosinophils/100 WBC (Bld) 0.3 % 0-5 [facility] Work Phone: Neutrophils (Bld) [#/Vol] 4.2 10*3/uL 2.0-7.7 [facility] Work Phone: Neutrophils/100 WBC (Bld) 61.3 % 47-70 [facility] Work Phone: WBC (Bld) [#/Vol] 6.8 10*3/uL 4.4-11.0 [facility] Blood erythrocytes count (nu mber/volume)on 10-25-2021 RBC (Bld) [#/Vol] 4.56 10*6/uL 4.6-6.2 [facility] Work Phone: [phone] Blood hemoglobin measurement (mass/volume)on 10-25-2021 Hemoglobin (Bld) [Mass/Vol] 13.9 g/dL 13.0-16.5 [facility] Work Phone: Blood lymphocytes/100 leukoc yteson 10-25-2021 Lymphocytes/100 WBC (Bld) 30.1 % 19-41 [facility] Work Phone: Blood monocytes/100 leukocyt eson 10-25-2021 Monocytes/100 WBC (Bld) 7.3 % 0-10 [facility] Work Phone: Blood platelet mean volumeon 10-25-2021 Platelet mean volume (Bld) [Entitic vol] 10.6 fL 6.2-12.0 [facility] Work Phone: Determination of erythrocyte mean corpuscular volume (MCV)on 10-25-2021 MCV (RBC) [Entitic vol] 91.0 fL 80-94 [facility] Work Phone: Hematocrit Auto (Bld) [Volum e fraction]on 10-25-2021 Hematocrit (Bld) [Volume fraction] 41.5 % 40-54 [facility] Work Phone: Laboratory - Hematology and Cell countson 10-25-2021 Erythrocyte distribution width (RBC) [Entitic vol] 41.7 fL 35.1-43.9 [facility] Work Phone: Erythrocyte distribution width (RBC) [Ratio] 12.6 % 11.6-14.6 [facility] Work Phone: Immature granulocytes/100 WBC (Bld) 0.600 % 0.0-0.9 [facility] Work Phone: Comment on above: IG% - Immature Granu locytes (promyelocytes, myelocytes and metamyelocytes) > 1% indicates that a LEFT SHIFT is Present. MCH (RBC) [Entitic mass] 30.5 pg 27.0-32.0 [facility] Work Phone: Nucleated RBC/100 WBC (Bld) [Ratio] 0 % 0-5 [facility] Work Phone: MCHC Auto (RBC) [Mass/Vol]on 10-25-2021 MCHC (RBC) [Mass/Vol] 33.5 g/dL 32-36 [facility] Work Phone: Platelets bldon 10-25-2021 Platelets (Bld) [#/Vol] 191 10*3/uL 150-450 [facility] Work Phone: Absolute lymphocyte counton 10-18-2021 Lymphocytes Auto (Unsp spec) [#/Vol] 1.66 10*3/uL 0.83-4.51 [facility] Work Phone: Basophil percentageon 2021 Basophils/100 WBC (Bld) 0.5 % 0-1 [facility] Work Phone: Eosinophils/100 WBC (Bld) 0.2 % 0-5 [facility] Work Phone: Neutrophils (Bld) [#/Vol] 4.3 10*3/uL 2.0-7.7 [facility] Work Phone: Neutrophils/100 WBC (Bld) 65.0 % 47-70 [facility] Work Phone: WBC (Bld) [#/Vol] 6.6 10*3/uL 4.4-11.0 [facility]: Blood erythrocytes count (nu mber/volume)on 10-18-2021 RBC (Bld) [#/Vol] 4.57 10*6/uL 4.6-6.2 [facility] Work Phone: Blood hemoglobin measurement (mass/volume)on 10-18-2021 Hemoglobin (Bld) [Mass/Vol] 14.1 g/dL 13.0-16.5 [facility] Work Phone: Blood lymphocytes/100 leukoc yteson 10-18-2021 Lymphocytes/100 WBC (Bld) 25.2 % 19-41 [facility] Work Phone: Blood monocytes/100 leukocyt eson 10-18-2021 Monocytes/100 WBC (Bld) 8.8 % 0-10 [facility] Work Phone: Blood platelet mean volumeon 10-18-2021 Platelet mean volume (Bld) [Entitic vol] 10.6 fL 6.2-12.0 [facility] Work Phone: Determination of erythrocyte mean corpuscular volume (MCV)on 10-18-2021 MCV (RBC) [Entitic vol] 91.7 fL 80-94 [facility] Work Phone: Hematocrit Auto (Bld) [Volum e fraction]on 10-18-2021 Hematocrit (Bld) [Volume fraction] 41.9 % 40-54 [facility] Work Phone: Laboratory - Hematology and Cell countson 10-18-2021 Erythrocyte distribution width (RBC) [Entitic vol] 41.6 fL 35.1-43.9 [facility] Work Phone: Erythrocyte distribution width (RBC) [Ratio] 12.5 % 11.6-14.6 [facility] Work Phone: Immature granulocytes/100 WBC (Bld) 0.300 % 0.0-0.9 [facility] Work Phone: Comment on above: IG% - Immature Granu locytes (promyelocytes, myelocytes and metamyelocytes) > 1% indicates that a LEFT SHIFT is Present. MCH (RBC) [Entitic mass] 30.9 pg 27.0-32.0 [facility] Work Phone: Nucleated RBC/100 WBC (Bld) [Ratio] 0 % 0-5 [facility] Work Phone: MCHC Auto (RBC) [Mass/Vol]on 10-18-2021 MCHC (RBC) [Mass/Vol] 33.7 g/dL 32-36 [facility] Work Phone: Platelets bldon 10-18-2021 Platelets (Bld) [#/Vol] 185 10*3/uL 150-450 [facility] Work Phone: Absolute lymphocyte counton 10-11-2021 Lymphocytes Auto (Unsp spec) [#/Vol] 1.66 10*3/uL 0.83-4.51 [facility] Work Phone: Basophil percentageon 2021 Basophils/100 WBC (Bld) 0.5 % 0-1 [facility] Work Phone: Eosinophils/100 WBC (Bld) 0.1 % 0-5 [facility] Work Phone: Neutrophils (Bld) [#/Vol] 5.9 10*3/uL 2.0-7.7 [facility] Work Phone: Neutrophils/100 WBC (Bld) 70.8 % 47-70 [facility] Work Phone: WBC (Bld) [#/Vol] 8.3 10*3/uL 4.4-11.0 [facility] Work Phone: [phone] Blood erythrocytes count (nu mber/volume)on 10-11-2021 RBC (Bld) [#/Vol] 4.66 10*6/uL 4.6-6.2 [facility] Work Phone: [phone] Blood hemoglobin measurement (mass/volume)on 10-11-2021 Hemoglobin (Bld) [Mass/Vol] 14.1 g/dL 13.0-16.5 [facility] Work Phone: Blood lymphocytes/100 leukoc yteson 10-11-2021 Lymphocytes/100 WBC (Bld) 20.0 % 19-41 [facility] Work Phone: Blood monocytes/100 leukocyt eson 10-11-2021 Monocytes/100 WBC (Bld) 8.2 % 0-10 [facility] Work Phone: Blood platelet mean volumeon 10-11-2021 Platelet mean volume (Bld) [Entitic vol] 10.7 fL 6.2-12.0 [facility] Work Phone: Determination of erythrocyte mean corpuscular volume (MCV)on 10-11-2021 MCV (RBC) [Entitic vol] 91.8 fL 80-94 [facility] Work Phone: Hematocrit Auto (Bld) [Volum e fraction]on 10-11-2021 Hematocrit (Bld) [Volume fraction] 42.8 % 40-54 [facility] Work Phone: Laboratory - Hematology and Cell countson 10-11-2021 Erythrocyte distribution width (RBC) [Entitic vol] 42.8 fL 35.1-43.9 [facility] Work Phone: Erythrocyte distribution width (RBC) [Ratio] 12.8 % 11.6-14.6 [facility] Work Phone: Immature granulocytes/100 WBC (Bld) 0.400 % 0.0-0.9 [facility] Work Phone: Comment on above: IG% - Immature Granu locytes (promyelocytes, myelocytes and metamyelocytes) > 1% indicates that a LEFT SHIFT is Present. MCH (RBC) [Entitic mass] 30.3 pg 27.0-32.0 [facility] Work Phone: Nucleated RBC/100 WBC (Bld) [Ratio] 0 % 0-5 [facility] Work Phone: MCHC Auto (RBC) [Mass/Vol]on 10-11-2021 MCHC (RBC) [Mass/Vol] 32.9 g/dL 32-36 [facility] Work Phone: Platelets bldon 10-11-2021 Platelets (Bld) [#/Vol] 193 10*3/uL 150-450 [facility] Work Phone: Absolute lymphocyte counton 10-04-2021 Lymphocytes Auto (Unsp spec) [#/Vol] 1.97 10*3/uL 0.83-4.51 [facility] Work Phone: Basophil percentageon 2021 Basophils/100 WBC (Bld) 0.5 % 0-1 [facility] Work Phone: Eosinophils/100 WBC (Bld) 0.1 % 0-5 [facility] Work Phone: Neutrophils (Bld) [#/Vol] 5.0 10*3/uL 2.0-7.7 [facility] Work Phone: Neutrophils/100 WBC (Bld) 64.4 % 47-70 [facility] Work Phone: WBC (Bld) [#/Vol] 7.7 10*3/uL 4.4-11.0 [facility] Work Phone: Blood erythrocytes count (nu mber/volume)on 10-04-2021 RBC (Bld) [#/Vol] 4.52 10*6/uL 4.6-6.2 [facility]: Blood hemoglobin measurement (mass/volume)on 10-04-2021 Hemoglobin (Bld) [Mass/Vol] 13.9 g/dL 13.0-16.5 [facility] Work Phone: Blood lymphocytes/100 leukoc yteson 10-04-2021 Lymphocytes/100 WBC (Bld) 25.6 % 19-41 [facility] Work Phone: Blood monocytes/100 leukocyt eson 10-04-2021 Monocytes/100 WBC (Bld) 9.0 % 0-10 [facility] Work Phone: Blood platelet mean volumeon 10-04-2021 Platelet mean volume (Bld) [Entitic vol] 11.0 fL 6.2-12.0 [facility] Work Phone: Determination of erythrocyte mean corpuscular volume (MCV)on 10-04-2021 MCV (RBC) [Entitic vol] 91.4 fL 80-94 [facility] Work Phone: Hematocrit Auto (Bld) [Volum e fraction]on 10-04-2021 Hematocrit (Bld) [Volume fraction] 41.3 % 40-54 [facility] Work Phone: Laboratory - Hematology and Cell countson 10-04-2021 Erythrocyte distribution width (RBC) [Entitic vol] 42.2 fL 35.1-43.9 [facility] Work Phone: Erythrocyte distribution width (RBC) [Ratio] 12.8 % 11.6-14.6 [facility] Work Phone: Immature granulocytes/100 WBC (Bld) 0.400 % 0.0-0.9 [facility] Work Phone: Comment on above: IG% - Immature Granu locytes (promyelocytes, myelocytes and metamyelocytes) > 1% indicates that a LEFT SHIFT is Present. MCH (RBC) [Entitic mass] 30.8 pg 27.0-32.0 [facility] Work Phone: Nucleated RBC/100 WBC (Bld) [Ratio] 0 % 0-5 [facility] Work Phone: MCHC Auto (RBC) [Mass/Vol]on 10-04-2021 MCHC (RBC) [Mass/Vol] 33.7 g/dL 32-36 [facility] Work Phone: Platelets bldon 10-04-2021 Platelets (Bld) [#/Vol] 179 10*3/uL 150-450 [facility] Work Phone: Absolute lymphocyte counton 09-28-2021 Lymphocytes Auto (Unsp spec) [#/Vol] 2.10 10*3/uL 0.83-4.51 [facility] Work Phone: Basophil percentageon 2021 Basophils/100 WBC (Bld) 0.4 % 0-1 [facility] Work Phone: Eosinophils/100 WBC (Bld) 0.3 % 0-5 [facility] Work Phone: Neutrophils (Bld) [#/Vol] 4.3 10*3/uL 2.0-7.7 [facility] Work Phone: Neutrophils/100 WBC (Bld) 59.9 % 47-70 [facility] Work Phone: WBC (Bld) [#/Vol] 7.2 10*3/uL 4.4-11.0 [facility] Work Phone: Blood erythrocytes count (nu mber/volume)on 09-28-2021 RBC (Bld) [#/Vol] 4.34 10*6/uL 4.6-6.2 [facility] Work Phone: Blood hemoglobin measurement (mass/volume)on 09-28-2021 Hemoglobin (Bld) [Mass/Vol] 13.3 g/dL 13.0-16.5 [facility] Work Phone: Blood lymphocytes/100 leukoc yteson 09-28-2021 Lymphocytes/100 WBC (Bld) 29.3 % 19-41 [facility] Work Phone: Blood monocytes/100 leukocyt eson 09-28-2021 Monocytes/100 WBC (Bld) 9.8 % 0-10 [facility] Work Phone: Blood platelet mean volumeon 09-28-2021 Platelet mean volume (Bld) [Entitic vol] 10.7 fL 6.2-12.0 [facility] Work Phone: Determination of erythrocyte mean corpuscular volume (MCV)on 09-28-2021 MCV (RBC) [Entitic vol] 91.2 fL 80-94 [facility] Work Phone: Hematocrit Auto (Bld) [Volum e fraction]on 09-28-2021 Hematocrit (Bld) [Volume fraction] 39.6 % 40-54 [facility] Work Phone: Laboratory - Hematology and Cell countson 09-28-2021 Erythrocyte distribution width (RBC) [Entitic vol] 41.8 fL 35.1-43.9 [facility] Work Phone: Erythrocyte distribution width (RBC) [Ratio] 12.6 % 11.6-14.6 [facility] Work Phone: Immature granulocytes/100 WBC (Bld) 0.300 % 0.0-0.9 [facility] Work Phone: Comment on above: IG% - Immature Granu locytes (promyelocytes, myelocytes and metamyelocytes) > 1% indicates that a LEFT SHIFT is Present. MCH (RBC) [Entitic mass] 30.6 pg 27.0-32.0 [facility] Work Phone: [phone] Nucleated RBC/100 WBC (Bld) [Ratio] 0 % 0-5 [facility] Work Phone: [phone] MCHC Auto (RBC) [Mass/Vol]on 09-28-2021 MCHC (RBC) [Mass/Vol] 33.6 g/dL 32-36 [facility] Work Phone: Platelets bldon 09-28-2021 Platelets (Bld) [#/Vol] 181 10*3/uL 150-450 [facility] Work Phone: Absolute lymphocyte counton 09-20-2021 Lymphocytes Auto (Unsp spec) [#/Vol] 1.79 10*3/uL 0.83-4.51 [facility] Work Phone: Basophil percentageon 2021 Basophils/100 WBC (Bld) 0.4 % 0-1 [facility] Work Phone: Eosinophils/100 WBC (Bld) 0.3 % 0-5 [facility] Work Phone: Neutrophils (Bld) [#/Vol] 4.1 10*3/uL 2.0-7.7 [facility] Work Phone: Neutrophils/100 WBC (Bld) 61.3 % 47-70 [facility] Work Phone: WBC (Bld) [#/Vol] 6.7 10*3/uL 4.4-11.0 [facility]: Blood erythrocytes count (nu mber/volume)on 09-20-2021 RBC (Bld) [#/Vol] 4.32 10*6/uL 4.6-6.2 [facility]: Blood hemoglobin measurement (mass/volume)on 09-20-2021 Hemoglobin (Bld) [Mass/Vol] 13.6 g/dL 13.0-16.5 [facility] Work Phone: Blood lymphocytes/100 leukoc yteson 09-20-2021 Lymphocytes/100 WBC (Bld) 26.8 % 19-41 [facility] Work Phone: Blood monocytes/100 leukocyt eson 09-20-2021 Monocytes/100 WBC (Bld) 10.8 % 0-10 [facility] Work Phone: Blood platelet mean volumeon 09-20-2021 Platelet mean volume (Bld) [Entitic vol] 10.7 fL 6.2-12.0 [facility] Work Phone: Determination of erythrocyte mean corpuscular volume (MCV)on 09-20-2021 MCV (RBC) [Entitic vol] 93.1 fL 80-94 [facility] Work Phone: Hematocrit Auto (Bld) [Volum e fraction]on 09-20-2021 Hematocrit (Bld) [Volume fraction] 40.2 % 40-54 [facility] Work Phone: Laboratory - Hematology and Cell countson 09-20-2021 Erythrocyte distribution width (RBC) [Entitic vol] 43.0 fL 35.1-43.9 [facility] Work Phone: Erythrocyte distribution width (RBC) [Ratio] 12.6 % 11.6-14.6 [facility] Work Phone: Immature granulocytes/100 WBC (Bld) 0.400 % 0.0-0.9 [facility] Work Phone: Comment on above: IG% - Immature Granu locytes (promyelocytes, myelocytes and metamyelocytes) > 1% indicates that a LEFT SHIFT is Present. MCH (RBC) [Entitic mass] 31.5 pg 27.0-32.0 [facility] Work Phone: Nucleated RBC/100 WBC (Bld) [Ratio] 0 % 0-5 [facility] Work Phone: MCHC Auto (RBC) [Mass/Vol]on 09-20-2021 MCHC (RBC) [Mass/Vol] 33.8 g/dL 32-36 [facility] Work Phone: Platelets bldon 09-20-2021 Platelets (Bld) [#/Vol] 170 10*3/uL 150-450 [facility] Work Phone: [phone] Absolute lymphocyte counton 09-13-2021 Lymphocytes Auto (Unsp spec) [#/Vol] 1.85 10*3/uL 0.83-4.51 [facility] Work Phone: Basophil percentageon 2021 Basophils/100 WBC (Bld) 0.6 % 0-1 [facility] Work Phone: Eosinophils/100 WBC (Bld) 0.3 % 0-5 [facility] Work Phone: Neutrophils (Bld) [#/Vol] 4.3 10*3/uL 2.0-7.7 [facility] Work Phone: Neutrophils/100 WBC (Bld) 63.1 % 47-70 [facility] Work Phone: WBC (Bld) [#/Vol] 6.7 10*3/uL 4.4-11.0 [facility]: Blood erythrocytes count (nu mber/volume)on 09-13-2021 RBC (Bld) [#/Vol] 4.63 10*6/uL 4.6-6.2 [facility] Work [facility]: Blood hemoglobin measurement (mass/volume)on 09-13-2021 Hemoglobin (Bld) [Mass/Vol] 14.2 g/dL 13.0-16.5 [facility] Work Phone: Blood lymphocytes/100 leukoc yteson 09-13-2021 Lymphocytes/100 WBC (Bld) 27.5 % 19-41 [facility] Work Phone: Blood monocytes/100 leukocyt eson 09-13-2021 Monocytes/100 WBC (Bld) 8.2 % 0-10 [facility] Work Phone: Blood platelet mean volumeon 09-13-2021 Platelet mean volume (Bld) [Entitic vol] 11.0 fL 6.2-12.0 [facility] Work Phone: Determination of erythrocyte mean corpuscular volume (MCV)on 09-13-2021 MCV (RBC) [Entitic vol] 93.5 fL 80-94 [facility] Work Phone: Hematocrit Auto (Bld) [Volum e fraction]on 09-13-2021 Hematocrit (Bld) [Volume fraction] 43.3 % 40-54 [facility] Work Phone: Laboratory - Hematology and Cell countson 09-13-2021 Erythrocyte distribution width (RBC) [Entitic vol] 43.0 fL 35.1-43.9 [facility] Work Phone: Erythrocyte distribution width (RBC) [Ratio] 12.6 % 11.6-14.6 [facility] Work Phone: Immature granulocytes/100 WBC (Bld) 0.300 % 0.0-0.9 [facility] Work Phone: Comment on above: IG% - Immature Granu locytes (promyelocytes, myelocytes and metamyelocytes) > 1% indicates that a LEFT SHIFT is Present. MCH (RBC) [Entitic mass] 30.7 pg 27.0-32.0 [facility] Work Phone: [phone] Nucleated RBC/100 WBC (Bld) [Ratio] 0 % 0-5 [facility] Work Phone: [phone] MCHC Auto (RBC) [Mass/Vol]on 09-13-2021 MCHC (RBC) [Mass/Vol] 32.8 g/dL 32-36 [facility] Work Phone: Platelets bldon 09-13-2021 Platelets (Bld) [#/Vol] 188 10*3/uL 150-450 [facility] Work Phone: [phone] Absolute lymphocyte counton 09-06-2021 Lymphocytes Auto (Unsp spec) [#/Vol] 1.86 10*3/uL 0.83-4.51 [facility] Work Phone: [phone] Basophil percentageon 2021 Basophils/100 WBC (Bld) 0.7 % 0-1 [facility] Work Phone: [phone] Eosinophils/100 WBC (Bld) 0.3 % 0-5 [facility] Work Phone: [phone] Neutrophils (Bld) [#/Vol] 4.4 10*3/uL 2.0-7.7 [facility] Work Phone: [phone] Neutrophils/100 WBC (Bld) 62.6 % 47-70 [facility] Work Phone: [phone] WBC (Bld) [#/Vol] 7.0 10*3/uL 4.4-11.0 [facility] Work Phone: [phone] Blood erythrocytes count (nu mber/volume)on 09-06-2021 RBC (Bld) [#/Vol] 4.51 10*6/uL 4.6-6.2 [facility] Work Phone: [phone] Blood hemoglobin measurement (mass/volume)on 09-06-2021 Hemoglobin (Bld) [Mass/Vol] 13.8 g/dL 13.0-16.5 [facility] Work Phone: Blood lymphocytes/100 leukoc yteson 09-06-2021 Lymphocytes/100 WBC (Bld) 26.5 % 19-41 [facility] Work Phone: Blood monocytes/100 leukocyt eson 09-06-2021 Monocytes/100 WBC (Bld) 9.5 % 0-10 [facility] Work Phone: Blood platelet mean volumeon 09-06-2021 Platelet mean volume (Bld) [Entitic vol] 10.7 fL 6.2-12.0 [facility] Work Phone: Determination of erythrocyte mean corpuscular volume (MCV)on 09-06-2021 MCV (RBC) [Entitic vol] 92.9 fL 80-94 [facility] Work Phone: Hematocrit Auto (Bld) [Volum e fraction]on 09-06-2021 Hematocrit (Bld) [Volume fraction] 41.9 % 40-54 [facility] Work Phone: Laboratory - Hematology and Cell countson 09-06-2021 Erythrocyte distribution width (RBC) [Entitic vol] 43.0 fL 35.1-43.9 [facility] Work Phone: Erythrocyte distribution width (RBC) [Ratio] 12.7 % 11.6-14.6 [facility] Work Phone: Immature granulocytes/100 WBC (Bld) 0.400 % 0.0-0.9 [facility] Work Phone: Comment on above: IG% - Immature Granu locytes (promyelocytes, myelocytes and metamyelocytes) > 1% indicates that a LEFT SHIFT is Present. MCH (RBC) [Entitic mass] 30.6 pg 27.0-32.0 [facility] Work Phone: Nucleated RBC/100 WBC (Bld) [Ratio] 0 % 0-5 [facility] Work Phone: MCHC Auto (RBC) [Mass/Vol]on 09-06-2021 MCHC (RBC) [Mass/Vol] 32.9 g/dL 32-36 [facility] Work Phone: Platelets bldon 09-06-2021 Platelets (Bld) [#/Vol] 189 10*3/uL 150-450 [facility] Work [phone] Absolute lymphocyte counton 08-30-2021 Lymphocytes Auto (Unsp spec) [#/Vol] 1.44 10*3/uL 0.83-4.51 [facility] Work Phone: Basophil percentageon 2021 Basophils/100 WBC (Bld) 0.3 % 0-1 [facility] Work [phone] Eosinophils/100 WBC (Bld) 0.2 % 0-5 [facility] Work Phone: Neutrophils (Bld) [#/Vol] 9.6 10*3/uL 2.0-7.7 [facility] Work Phone: Neutrophils/100 WBC (Bld) 80.4 % 47-70 [facility] Work Phone: [phone] WBC (Bld) [#/Vol] 12.0 10*3/uL 4.4-11.0 [facility] Work Phone: Blood erythrocytes count (nu mber/volume)on 08-30-2021 RBC (Bld) [#/Vol] 4.52 10*6/uL 4.6-6.2 [facility] Work Phone: Blood hemoglobin measurement (mass/volume)on 08-30-2021 Hemoglobin (Bld) [Mass/Vol] 13.9 g/dL 13.0-16.5 [facility] Work Phone: [phone] Blood lymphocytes/100 leukoc yteson 08-30-2021 Lymphocytes/100 WBC (Bld) 12.0 % 19-41 [facility] Work Phone: [phone] Blood monocytes/100 leukocyt eson 08-30-2021 Monocytes/100 WBC (Bld) 6.7 % 0-10 [facility] Work Phone: Blood platelet mean volumeon 08-30-2021 Platelet mean volume (Bld) [Entitic vol] 11.3 fL 6.2-12.0 [facility] Work Phone: Determination of erythrocyte mean corpuscular volume (MCV)on 08-30-2021 MCV (RBC) [Entitic vol] 92.7 fL 80-94 [facility] Work Phone: Hematocrit Auto (Bld) [Volum e fraction]on 08-30-2021 Hematocrit (Bld) [Volume fraction] 41.9 % 40-54 [facility] Work Phone: Laboratory - Hematology and Cell countson 08-30-2021 Erythrocyte distribution width (RBC) [Entitic vol] 42.6 fL 35.1-43.9 [facility] Work Phone: Erythrocyte distribution width (RBC) [Ratio] 12.6 % 11.6-14.6 [facility] Work Phone: Immature granulocytes/100 WBC (Bld) 0.400 % 0.0-0.9 [facility] Work Phone: Comment on above: IG% - Immature Granu locytes (promyelocytes, myelocytes and metamyelocytes) > 1% indicates that a LEFT SHIFT is Present. MCH (RBC) [Entitic mass] 30.8 pg 27.0-32.0 [facility] Work Phone: Nucleated RBC/100 WBC (Bld) [Ratio] 0 % 0-5 [facility] Work Phone: MCHC Auto (RBC) [Mass/Vol]on 08-30-2021 MCHC (RBC) [Mass/Vol] 33.2 g/dL 32-36 [facility] Work Phone: Platelets bldon 08-30-2021 Platelets (Bld) [#/Vol] 200 10*3/uL 150-450 [facility] Work Phone: Absolute lymphocyte counton 08-23-2021 Lymphocytes Auto (Unsp spec) [#/Vol] 1.91 10*3/uL 0.83-4.51 [facility] Work Phone: Basophil percentageon 2021 Basophils/100 WBC (Bld) 0.4 % 0-1 [facility] Work Phone: Eosinophils/100 WBC (Bld) 0.3 % 0-5 [facility] Work Phone: Neutrophils (Bld) [#/Vol] 4.2 10*3/uL 2.0-7.7 [facility] Work Phone: Neutrophils/100 WBC (Bld) 62.3 % 47-70 [facility] Work Phone: WBC (Bld) [#/Vol] 6.8 10*3/uL 4.4-11.0 [facility]: Blood erythrocytes count (nu mber/volume)on 08-23-2021 RBC (Bld) [#/Vol] 4.46 10*6/uL 4.6-6.2 [facility] Work [facility]: Blood hemoglobin measurement (mass/volume)on 08-23-2021 Hemoglobin (Bld) [Mass/Vol] 13.7 g/dL 13.0-16.5 [facility] Work Phone: Blood lymphocytes/100 leukoc yteson 08-23-2021 Lymphocytes/100 WBC (Bld) 28.3 % 19-41 [facility] Work Phone: Blood monocytes/100 leukocyt eson 08-23-2021 Monocytes/100 WBC (Bld) 8.1 % 0-10 [facility] Work Phone: Blood platelet mean volumeon 08-23-2021 Platelet mean volume (Bld) [Entitic vol] 10.6 fL 6.2-12.0 [facility] Work Phone: [phone] Determination of erythrocyte mean corpuscular volume (MCV)on 08-23-2021 MCV (RBC) [Entitic vol] 93.0 fL 80-94 [facility] Work Phone: Hematocrit Auto (Bld) [Volum e fraction]on 08-23-2021 Hematocrit (Bld) [Volume fraction] 41.5 % 40-54 [facility] Work Phone: Laboratory - Hematology and Cell countson 08-23-2021 Erythrocyte distribution width (RBC) [Entitic vol] 42.4 fL 35.1-43.9 [facility] Work Phone: Erythrocyte distribution width (RBC) [Ratio] 12.5 % 11.6-14.6 [facility] Work Phone: Immature granulocytes/100 WBC (Bld) 0.600 % 0.0-0.9 [facility] Work Phone: Comment on above: IG% - Immature Granu locytes (promyelocytes, myelocytes and metamyelocytes) > 1% indicates that a LEFT SHIFT is Present. MCH (RBC) [Entitic mass] 30.7 pg 27.0-32.0 [facility] Work Phone: Nucleated RBC/100 WBC (Bld) [Ratio] 0 % 0-5 [facility] Work Phone: MCHC Auto (RBC) [Mass/Vol]on 08-23-2021 MCHC (RBC) [Mass/Vol] 33.0 g/dL 32-36 [facility] Work Phone: Platelets bldon 08-23-2021 Platelets (Bld) [#/Vol] 198 10*3/uL 150-450 [facility] Work Phone: Basophil percentageon 2021 Basophil percentage 0 SEEN /hpf 0-5 [facility] Work Phone: Bilirubin Test strip Ql (U)o n 08-18-2021 Bilirubin Ql (U) Negative Negative [facility] Work Phone: Culture, urineon 08-18-2021 Bacteria identified Cx Nom (U) Culture exhibits no growth. [facility] Work Phone: Ketones Test strip Ql (U)on 08-18-2021 Ketones Ql (U) Negative Negative [facility] Work Phone: Mucus LM Ql (Urine sed)on Mucus Ql (Urine sed) 0 SEEN /hpf [facility] Work Phone: Nitrite Test strip Ql (U)on 08-18-2021 Nitrite Ql (U) Negative Negative [facility] Work Phone: Protein Test strip Ql (U)on 08-18-2021 Protein Ql (U) Negative Negative [facility] Work Phone: Squamous epithelial cells de tection in urine sediment by light microscopyon 08-18-2021 Epithelial cells.squamous LM Ql (Urine sed) 0 SEEN /hpf 0-5 [facility] Work Phone: Urine blood detectionon 07-31 RBC Ql (U) Negative Negative [facility] Work Phone: RBC Ql (U) 0 SEEN /hpf 0-5 [facility] Work Phone: Urine clarityon 08-18-2021 Clarity (U) Clear Clear [facility] Work Phone: Urine color determinationon 08-18-2021 Color (U) Yellow Yellow [facility] Work Phone: Urine glucose detectionon Glucose Ql (U) Normal mg/dl Normal [facility] Work Phone: Urine leukocyte esterase det ection by dipstickon 08-18-2021 Leukocyte esterase Test strip Ql (U) Negative Negative [facility] Work Phone: Urine pHon 08-18-2021 pH (U) 7.0 [pH] 5.0 - 8.0 [facility] Work Phone: Urine sediment bacteria coun t by microscopy (number/high power field)on 08-18-2021 Bacteria LM.HPF (Urine sed) [#/Area] 0 /[HPF] None Seen [facility] Work Phone: Urine specific gravity measu rementon 08-18-2021 Specific gravity (U) [Rel density] 1.010 1.002-1.030 [facility] Work Phone: Urobilinogen Auto test strip Ql (U)on 08-18-2021 Urobilinogen Ql (U) 4 mg/dl Normal [facility] Work Phone: Absolute lymphocyte counton 08-16-2021 Lymphocytes Auto (Unsp spec) [#/Vol] 1.71 10*3/uL 0.83-4.51 [facility] Work Phone: Basophil percentageon 2021 Basophils/100 WBC (Bld) 0.3 % 0-1 [facility] Work Phone: Eosinophils/100 WBC (Bld) 0.2 % 0-5 [facility] Work Phone: Neutrophils (Bld) [#/Vol] 8.6 10*3/uL 2.0-7.7 [facility] Work Phone: Neutrophils/100 WBC (Bld) 76.8 % 47-70 [facility] Work Phone: WBC (Bld) [#/Vol] 11.2 10*3/uL 4.4-11.0 [facility] Work Phone: Blood erythrocytes count (nu mber/volume)on 08-16-2021 RBC (Bld) [#/Vol] 4.42 10*6/uL 4.6-6.2 [facility] Work Phone: Blood hemoglobin measurement (mass/volume)on 08-16-2021 Hemoglobin (Bld) [Mass/Vol] 13.4 g/dL 13.0-16.5 [facility] Work Phone: Blood lymphocytes/100 leukoc yteson 08-16-2021 Lymphocytes/100 WBC (Bld) 15.2 % 19-41 [facility] Work Phone: Blood monocytes/100 leukocyt eson 08-16-2021 Monocytes/100 WBC (Bld) 7.1 % 0-10 [facility] Work Phone: Blood platelet mean volumeon 08-16-2021 Platelet mean volume (Bld) [Entitic vol] 11.0 fL 6.2-12.0 [facility] Work Phone: Determination of erythrocyte mean corpuscular volume (MCV)on 08-16-2021 MCV (RBC) [Entitic vol] 91.9 fL 80-94 [facility] Work Phone: Hematocrit Auto (Bld) [Volum e fraction]on 08-16-2021 Hematocrit (Bld) [Volume fraction] 40.6 % 40-54 [facility] Work Phone: Laboratory - Hematology and Cell countson 08-16-2021 Erythrocyte distribution width (RBC) [Entitic vol] 43.0 fL 35.1-43.9 [facility] Work Phone: Erythrocyte distribution width (RBC) [Ratio] 12.7 % 11.6-14.6 [facility] Work Phone: Immature granulocytes/100 WBC (Bld) 0.400 % 0.0-0.9 [facility] Work Phone: Comment on above: IG% - Immature Granu locytes (promyelocytes, myelocytes and metamyelocytes) > 1% indicates that a LEFT SHIFT is Present. MCH (RBC) [Entitic mass] 30.3 pg 27.0-32.0 [facility] Work Phone: Nucleated RBC/100 WBC (Bld) [Ratio] 0 % 0-5 [facility] Work Phone: MCHC Auto (RBC) [Mass/Vol]on 08-16-2021 MCHC (RBC) [Mass/Vol] 33.0 g/dL 32-36 [facility] Work Phone: Platelets bldon 08-16-2021 Platelets (Bld) [#/Vol] 187 10*3/uL 150-450 [facility] Work Phone: [phone] Absolute lymphocyte counton 08-09-2021 Lymphocytes Auto (Unsp spec) [#/Vol] 1.78 10*3/uL 0.83-4.51 [facility] Work Phone: Basophil percentageon 2021 Basophils/100 WBC (Bld) 0.5 % 0-1 [facility] Work Phone: Eosinophils/100 WBC (Bld) 0.1 % 0-5 [facility] Work Phone: [phone] Neutrophils (Bld) [#/Vol] 6.0 10*3/uL 2.0-7.7 [facility] Work Phone: [phone] Neutrophils/100 WBC (Bld) 71.3 % 47-70 [facility] Work Phone: [phone] WBC (Bld) [#/Vol] 8.4 10*3/uL 4.4-11.0 [facility]: Blood erythrocytes count (nu mber/volume)on 08-09-2021 RBC (Bld) [#/Vol] 4.37 10*6/uL 4.6-6.2 [facility]: Blood hemoglobin measurement (mass/volume)on 08-09-2021 Hemoglobin (Bld) [Mass/Vol] 13.5 g/dL 13.0-16.5 [facility] Work Phone: Blood lymphocytes/100 leukoc yteson 08-09-2021 Lymphocytes/100 WBC (Bld) 21.2 % 19-41 [facility] Work Phone: Blood monocytes/100 leukocyt eson 08-09-2021 Monocytes/100 WBC (Bld) 6.5 % 0-10 [facility] Work Phone: [phone] Blood platelet mean volumeon 08-09-2021 Platelet mean volume (Bld) [Entitic vol] 11.1 fL 6.2-12.0 [facility] Work Phone: Determination of erythrocyte mean corpuscular volume (MCV)on 08-09-2021 MCV (RBC) [Entitic vol] 91.3 fL 80-94 [facility] Work Phone: Hematocrit Auto (Bld) [Volum e fraction]on 08-09-2021 Hematocrit (Bld) [Volume fraction] 39.9 % 40-54 [facility] Work Phone: Laboratory - Hematology and Cell countson 08-09-2021 Erythrocyte distribution width (RBC) [Entitic vol] 41.4 fL 35.1-43.9 [facility] Work Phone: Erythrocyte distribution width (RBC) [Ratio] 12.5 % 11.6-14.6 [facility] Work Phone: Immature granulocytes/100 WBC (Bld) 0.400 % 0.0-0.9 [facility] Work Phone: Comment on above: IG% - Immature Granu locytes (promyelocytes, myelocytes and metamyelocytes) > 1% indicates that a LEFT SHIFT is Present. MCH (RBC) [Entitic mass] 30.9 pg 27.0-32.0 [facility] Work Phone: Nucleated RBC/100 WBC (Bld) [Ratio] 0 % 0-5 [facility] Work Phone: MCHC Auto (RBC) [Mass/Vol]on 08-09-2021 MCHC (RBC) [Mass/Vol] 33.8 g/dL 32-36 [facility] Work Phone: Platelets bldon 08-09-2021 Platelets (Bld) [#/Vol] 177 10*3/uL 150-450 [facility] Work Phone: Absolute lymphocyte counton 08-02-2021 Lymphocytes Auto (Unsp spec) [#/Vol] 1.69 10*3/uL 0.83-4.51 [facility] Work Phone: [phone] Basophil percentageon 2021 Basophils/100 WBC (Bld) 0.3 % 0-1 [facility] Work Phone: Eosinophils/100 WBC (Bld) 0.3 % 0-5 [facility] Work Phone: Neutrophils (Bld) [#/Vol] 3.8 10*3/uL 2.0-7.7 [facility] Work Phone: Neutrophils/100 WBC (Bld) 61.9 % 47-70 [facility] Work Phone: [phone] WBC (Bld) [#/Vol] 6.1 10*3/uL 4.4-11.0 [facility]: Blood erythrocytes count (nu mber/volume)on 08-02-2021 RBC (Bld) [#/Vol] 4.54 10*6/uL 4.6-6.2 [facility] Work [facility]: Blood hemoglobin measurement (mass/volume)on 08-02-2021 Hemoglobin (Bld) [Mass/Vol] 13.8 g/dL 13.0-16.5 [facility] Work Phone: Blood lymphocytes/100 leukoc yteson 08-02-2021 Lymphocytes/100 WBC (Bld) 27.7 % 19-41 [facility] Work Phone: Blood monocytes/100 leukocyt eson 08-02-2021 Monocytes/100 WBC (Bld) 9.5 % 0-10 [facility] Work Phone: Blood platelet mean volumeon 08-02-2021 Platelet mean volume (Bld) [Entitic vol] 11.2 fL 6.2-12.0 [facility] Work Phone: Determination of erythrocyte mean corpuscular volume (MCV)on 08-02-2021 MCV (RBC) [Entitic vol] 90.1 fL 80-94 [facility] Work Phone: Hematocrit Auto (Bld) [Volum e fraction]on 08-02-2021 Hematocrit (Bld) [Volume fraction] 40.9 % 40-54 [facility] Work Phone: Laboratory - Hematology and Cell countson 08-02-2021 Erythrocyte distribution width (RBC) [Entitic vol] 40.3 fL 35.1-43.9 [facility] Work Phone: Erythrocyte distribution width (RBC) [Ratio] 12.4 % 11.6-14.6 [facility] Work Phone: Immature granulocytes/100 WBC (Bld) 0.300 % 0.0-0.9 [facility] Work Phone: Comment on above: IG% - Immature Granu locytes (promyelocytes, myelocytes and metamyelocytes) > 1% indicates that a LEFT SHIFT is Present. MCH (RBC) [Entitic mass] 30.4 pg 27.0-32.0 [facility] Work Phone: Nucleated RBC/100 WBC (Bld) [Ratio] 0 % 0-5 [facility] Work Phone: MCHC Auto (RBC) [Mass/Vol]on 08-02-2021 MCHC (RBC) [Mass/Vol] 33.7 g/dL 32-36 [facility] Work Phone: Platelets bldon 08-02-2021 Platelets (Bld) [#/Vol] 192 10*3/uL 150-450 [facility] Work Phone: Absolute lymphocyte counton 07-26-2021 Lymphocytes Auto (Unsp spec) [#/Vol] 1.83 10*3/uL 0.83-4.51 [facility] Work Phone: [phone] Basophil percentageon 2021 Basophils/100 WBC (Bld) 0.5 % 0-1 [facility] Work Phone: Eosinophils/100 WBC (Bld) 0.3 % 0-5 [facility] Work Phone: Neutrophils (Bld) [#/Vol] 3.3 10*3/uL 2.0-7.7 [facility] Work Phone: Neutrophils/100 WBC (Bld) 58.1 % 47-70 [facility] Work Phone: WBC (Bld) [#/Vol] 5.7 10*3/uL 4.4-11.0 [facility] Work Phone: Blood erythrocytes count (nu mber/volume)on 07-26-2021 RBC (Bld) [#/Vol] 4.21 10*6/uL 4.6-6.2 [facility] Work Phone: Blood hemoglobin measurement (mass/volume)on 07-26-2021 Hemoglobin (Bld) [Mass/Vol] 12.9 g/dL 13.0-16.5 [facility] Work Phone: Blood lymphocytes/100 leukoc yteson 07-26-2021 Lymphocytes/100 WBC (Bld) 31.9 % 19-41 [facility] Work Phone: Blood monocytes/100 leukocyt eson 07-26-2021 Monocytes/100 WBC (Bld) 8.9 % 0-10 [facility] Work Phone: Blood platelet mean volumeon 07-26-2021 Platelet mean volume (Bld) [Entitic vol] 11.5 fL 6.2-12.0 [facility] Work Phone: Determination of erythrocyte mean corpuscular volume (MCV)on 07-26-2021 MCV (RBC) [Entitic vol] 90.7 fL 80-94 [facility] Work Phone: Hematocrit Auto (Bld) [Volum e fraction]on 07-26-2021 Hematocrit (Bld) [Volume fraction] 38.2 % 40-54 [facility] Work Phone: Laboratory - Hematology and Cell countson 07-26-2021 Erythrocyte distribution width (RBC) [Entitic vol] 41.2 fL 35.1-43.9 [facility] Work Phone: [phone] Erythrocyte distribution width (RBC) [Ratio] 12.5 % 11.6-14.6 [facility] Work Phone: Immature granulocytes/100 WBC (Bld) 0.300 % 0.0-0.9 [facility] Work Phone: Comment on above: IG% - Immature Granu locytes (promyelocytes, myelocytes and metamyelocytes) > 1% indicates that a LEFT SHIFT is Present. MCH (RBC) [Entitic mass] 30.6 pg 27.0-32.0 [facility] Work Phone: [phone] Nucleated RBC/100 WBC (Bld) [Ratio] 0 % 0-5 [facility] Work Phone: [phone] MCHC Auto (RBC) [Mass/Vol]on 07-26-2021 MCHC (RBC) [Mass/Vol] 33.8 g/dL 32-36 [facility] Work Phone: Platelets bldon 07-26-2021 Platelets (Bld) [#/Vol] 180 10*3/uL 150-450 [facility] Work Phone: [phone] Absolute lymphocyte counton 07-19-2021 Lymphocytes Auto (Unsp spec) [#/Vol] 2.04 10*3/uL 0.83-4.51 [facility] Work Phone: Basophil percentageon 2021 Basophils/100 WBC (Bld) 0.3 % 0-1 [facility] Work Phone: Eosinophils/100 WBC (Bld) 0.4 % 0-5 [facility] Work Phone: Neutrophils (Bld) [#/Vol] 4.0 10*3/uL 2.0-7.7 [facility] Work Phone: [phone] Neutrophils/100 WBC (Bld) 59.2 % 47-70 [facility] Work Phone: WBC (Bld) [#/Vol] 6.7 10*3/uL 4.4-11.0 [facility] Work Phone: Blood erythrocytes count (nu mber/volume)on 07-19-2021 RBC (Bld) [#/Vol] 4.53 10*6/uL 4.6-6.2 [facility] Work [facility]: Blood hemoglobin measurement (mass/volume)on 07-19-2021 Hemoglobin (Bld) [Mass/Vol] 14.1 g/dL 13.0-16.5 [facility] Work Phone: Blood lymphocytes/100 leukoc yteson 07-19-2021 Lymphocytes/100 WBC (Bld) 30.5 % 19-41 [facility] Work Phone: Blood monocytes/100 leukocyt eson 07-19-2021 Monocytes/100 WBC (Bld) 9.0 % 0-10 [facility] Work Phone: Blood platelet mean volumeon 07-19-2021 Platelet mean volume (Bld) [Entitic vol] 11.4 fL 6.2-12.0 [facility] Work Phone: Determination of erythrocyte mean corpuscular volume (MCV)on 07-19-2021 MCV (RBC) [Entitic vol] 90.5 fL 80-94 [facility] Work Phone: Hematocrit Auto (Bld) [Volum e fraction]on 07-19-2021 Hematocrit (Bld) [Volume fraction] 41.0 % 40-54 [facility] Work Phone: Laboratory - Hematology and Cell countson 07-19-2021 Erythrocyte distribution width (RBC) [Entitic vol] 41.1 fL 35.1-43.9 [facility] Work Phone: Erythrocyte distribution width (RBC) [Ratio] 12.5 % 11.6-14.6 [facility] Work Phone: Immature granulocytes/100 WBC (Bld) 0.600 % 0.0-0.9 [facility] Work Phone: Comment on above: IG% - Immature Granu locytes (promyelocytes, myelocytes and metamyelocytes) > 1% indicates that a LEFT SHIFT is Present. MCH (RBC) [Entitic mass] 31.1 pg 27.0-32.0 [facility] Work Phone: Nucleated RBC/100 WBC (Bld) [Ratio] 0 % 0-5 [facility] Work Phone: MCHC Auto (RBC) [Mass/Vol]on 07-19-2021 MCHC (RBC) [Mass/Vol] 34.4 g/dL 32-36 [facility] Work Phone: Platelets bldon 07-19-2021 Platelets (Bld) [#/Vol] 193 10*3/uL 150-450 [facility] Work Phone: Absolute lymphocyte counton 07-12-2021 Lymphocytes Auto (Unsp spec) [#/Vol] 1.42 10*3/uL 0.83-4.51 [facility] Work Phone: Basophil percentageon 2021 Basophils/100 WBC (Bld) 0.6 % 0-1 [facility] Work Phone: Eosinophils/100 WBC (Bld) 0.3 % 0-5 [facility] Work Phone: Neutrophils (Bld) [#/Vol] 4.7 10*3/uL 2.0-7.7 [facility] Work Phone: Neutrophils/100 WBC (Bld) 67.3 % 47-70 [facility] Work Phone: WBC (Bld) [#/Vol] 7.0 10*3/uL 4.4-11.0 [facility] Work [facility]: Blood erythrocytes count (nu mber/volume)on 07-12-2021 RBC (Bld) [#/Vol] 4.61 10*6/uL 4.6-6.2 [facility] Work Phone: Blood hemoglobin measurement (mass/volume)on 07-12-2021 Hemoglobin (Bld) [Mass/Vol] 14.4 g/dL 13.0-16.5 [facility] Work Phone: Blood lymphocytes/100 leukoc yteson 07-12-2021 Lymphocytes/100 WBC (Bld) 20.4 % 19-41 [facility] Work Phone: Blood monocytes/100 leukocyt eson 07-12-2021 Monocytes/100 WBC (Bld) 11.1 % 0-10 [facility] Work Phone: Blood platelet mean volumeon 07-12-2021 Platelet mean volume (Bld) [Entitic vol] 11.2 fL 6.2-12.0 [facility] Work Phone: Determination of erythrocyte mean corpuscular volume (MCV)on 07-12-2021 MCV (RBC) [Entitic vol] 91.1 fL 80-94 [facility] Work Phone: Hematocrit Auto (Bld) [Volum e fraction]on 07-12-2021 Hematocrit (Bld) [Volume fraction] 42.0 % 40-54 [facility] Work Phone: Laboratory - Hematology and Cell countson 07-12-2021 Erythrocyte distribution width (RBC) [Entitic vol] 41.4 fL 35.1-43.9 [facility] Work Phone: Erythrocyte distribution width (RBC) [Ratio] 12.6 % 11.6-14.6 [facility] Work Phone: Immature granulocytes/100 WBC (Bld) 0.300 % 0.0-0.9 [facility] Work Phone: Comment on above: IG% - Immature Granu locytes (promyelocytes, myelocytes and metamyelocytes) > 1% indicates that a LEFT SHIFT is Present. MCH (RBC) [Entitic mass] 31.2 pg 27.0-32.0 [facility] Work Phone: Nucleated RBC/100 WBC (Bld) [Ratio] 0 % 0-5 [facility] Work Phone: MCHC Auto (RBC) [Mass/Vol]on 07-12-2021 MCHC (RBC) [Mass/Vol] 34.3 g/dL 32-36 [facility] Work Phone: Platelets bldon 07-12-2021 Platelets (Bld) [#/Vol] 184 10*3/uL 150-450 [facility] Work Phone: Absolute lymphocyte counton 07-05-2021 Lymphocytes Auto (Unsp spec) [#/Vol] 1.55 10*3/uL 0.83-4.51 [facility] Work Phone: [phone] Basophil percentageon 2021 Basophils/100 WBC (Bld) 0.4 % 0-1 [facility] Work Phone: Cholesterol [Mass/Vol] 148 mg/dL <200 [facility] Work Phone: Comment on above: <200 mg/dL Desirable 200-240 mg/dL Borderline >240 mg/dL High Risk Eosinophils/100 WBC (Bld) 0.3 % 0-5 [facility] Work Phone: Neutrophils (Bld) [#/Vol] 5.5 10*3/uL 2.0-7.7 [facility] Work Phone: Neutrophils/100 WBC (Bld) 70.9 % 47-70 [facility] Work Phone: Triglyceride [Mass/Vol] 201 mg/dL <199 [facility] Work Phone: Comment on above: The drugs N-Acetylcy steine and Metamizole may falsely depress this assay.Serum Triglycerides Reference Interval Normal <150 mg/dL Borderline high 150 - 199 mg/dL High 200 - 499 mg/dL Very High > or = 500 mg/dL WBC (Bld) [#/Vol] 7.8 10*3/uL 4.4-11.0 [facility] Work Phone: Blood erythrocytes count (nu mber/volume)on 07-05-2021 RBC (Bld) [#/Vol] 4.46 10*6/uL 4.6-6.2 [facility] Work Phone: Blood hemoglobin measurement (mass/volume)on 07-05-2021 Hemoglobin (Bld) [Mass/Vol] 13.4 g/dL 13.0-16.5 [facility] Work Phone: Blood lymphocytes/100 leukoc yteson 07-05-2021 Lymphocytes/100 WBC (Bld) 20.0 % 19-41 [facility] Work Phone: Blood monocytes/100 leukocyt eson 07-05-2021 Monocytes/100 WBC (Bld) 8.1 % 0-10 [facility] Work Phone: Blood platelet mean volumeon 07-05-2021 Platelet mean volume (Bld) [Entitic vol] 11.7 fL 6.2-12.0 [facility] Work Phone: Determination of erythrocyte mean corpuscular volume (MCV)on 07-05-2021 MCV (RBC) [Entitic vol] 91.0 fL 80-94 [facility] Work Phone: Hematocrit Auto (Bld) [Volum e fraction]on 07-05-2021 Hematocrit (Bld) [Volume fraction] 40.6 % 40-54 [facility] Work Phone: Laboratory - Hematology and Cell countson 07-05-2021 Erythrocyte distribution width (RBC) [Entitic vol] 41.9 fL 35.1-43.9 [facility] Work Phone: Erythrocyte distribution width (RBC) [Ratio] 12.8 % 11.6-14.6 [facility] Work Phone: Immature granulocytes/100 WBC (Bld) 0.300 % 0.0-0.9 [facility] Work Phone: Comment on above: IG% - Immature Granu locytes (promyelocytes, myelocytes and metamyelocytes) > 1% indicates that a LEFT SHIFT is Present. MCH (RBC) [Entitic mass] 30.0 pg 27.0-32.0 [facility] Work Phone: Nucleated RBC/100 WBC (Bld) [Ratio] 0 % 0-5 [facility] Work Phone: MCHC Auto (RBC) [Mass/Vol]on 07-05-2021 MCHC (RBC) [Mass/Vol] 33.0 g/dL 32-36 [facility] Work Phone: Platelets bldon 07-05-2021 Platelets (Bld) [#/Vol] 186 10*3/uL 150-450 [facility] Work Phone: Serum or plasma cholesterol in HDL measurement (mass/volume)on 07-05-2021 Cholesterol in HDL [Mass/Vol] 30 mg/dL >40 [facility] Work Phone: Comment on above: The drugs N-Acetylcy steine and Metamizole may falsely depress this assay. Reference Range HDL <40 mg/dL Low HDL Cholesterol HDL >or= 60 mg/dL High HDL Cholesterol Serum or plasma cholesterol in VLDL measurement (mass/volume)on 07-05-2021 Cholesterol in VLDL [Mass/Vol] 40 mg/dL 5-40 [facility] Work Phone: Serum or plasma low density lipoprotein (LDL) cholesterol measurement (mass/volume)on 07-05-2021 Cholesterol in LDL [Mass/Vol] 78 mg/dL 0-130 [facility] Work Phone: Absolute lymphocyte counton 06-28-2021 Lymphocytes Auto (Unsp spec) [#/Vol] 2.01 10*3/uL 0.83-4.51 [facility] Work Phone: Basophil percentageon 2021 Basophils/100 WBC (Bld) 0.5 % 0-1 [facility] Work Phone: Eosinophils/100 WBC (Bld) 0.3 % 0-5 [facility] Work Phone: Neutrophils (Bld) [#/Vol] 3.3 10*3/uL 2.0-7.7 [facility] Work Phone: Neutrophils/100 WBC (Bld) 55.5 % 47-70 [facility] Work Phone: WBC (Bld) [#/Vol] 6.0 10*3/uL 4.4-11.0 [facility] Work [facility]: Blood erythrocytes count (nu mber/volume)on 06-28-2021 RBC (Bld) [#/Vol] 4.32 10*6/uL 4.6-6.2 [facility] Work [facility]: Blood hemoglobin measurement (mass/volume)on 06-28-2021 Hemoglobin (Bld) [Mass/Vol] 13.5 g/dL 13.0-16.5 [facility] Work Phone: Blood lymphocytes/100 leukoc yteson 06-28-2021 Lymphocytes/100 WBC (Bld) 33.5 % 19-41 [facility] Work Phone: Blood monocytes/100 leukocyt eson 06-28-2021 Monocytes/100 WBC (Bld) 10.0 % 0-10 [facility] Work Phone: Blood platelet mean volumeon 06-28-2021 Platelet mean volume (Bld) [Entitic vol] 11.8 fL 6.2-12.0 [facility] Work Phone: Determination of erythrocyte mean corpuscular volume (MCV)on 06-28-2021 MCV (RBC) [Entitic vol] 89.8 fL 80-94 [facility] Work Phone: Hematocrit Auto (Bld) [Volum e fraction]on 06-28-2021 Hematocrit (Bld) [Volume fraction] 38.8 % 40-54 [facility] Work Phone: Laboratory - Hematology and Cell countson 06-28-2021 Erythrocyte distribution width (RBC) [Entitic vol] 40.6 fL 35.1-43.9 [facility] Work Phone: Erythrocyte distribution width (RBC) [Ratio] 12.5 % 11.6-14.6 [facility] Work Phone: Immature granulocytes/100 WBC (Bld) 0.200 % 0.0-0.9 [facility] Work Phone: Comment on above: IG% - Immature Granu locytes (promyelocytes, myelocytes and metamyelocytes) > 1% indicates that a LEFT SHIFT is Present. MCH (RBC) [Entitic mass] 31.3 pg 27.0-32.0 [facility] Work Phone: Nucleated RBC/100 WBC (Bld) [Ratio] 0 % 0-5 [facility] Work Phone: [phone] MCHC Auto (RBC) [Mass/Vol]on 06-28-2021 MCHC (RBC) [Mass/Vol] 34.8 g/dL 32-36 [facility] Work Phone: Platelets bldon 06-28-2021 Platelets (Bld) [#/Vol] 185 10*3/uL 150-450 [facility] Work Phone: Absolute lymphocyte counton 06-21-2021 Lymphocytes Auto (Unsp spec) [#/Vol] 1.78 10*3/uL 0.83-4.51 [facility] Work Phone: Basophil percentageon 2021 Basophils/100 WBC (Bld) 0.3 % 0-1 [facility] Work Phone: Eosinophils/100 WBC (Bld) 0.4 % 0-5 [facility] Work Phone: Neutrophils (Bld) [#/Vol] 4.2 10*3/uL 2.0-7.7 [facility] Work Phone: Neutrophils/100 WBC (Bld) 62.7 % 47-70 [facility] Work Phone: WBC (Bld) [#/Vol] 6.8 10*3/uL 4.4-11.0 [facility] Work Phone: Blood erythrocytes count (nu mber/volume)on 06-21-2021 RBC (Bld) [#/Vol] 4.21 10*6/uL 4.6-6.2 [facility] Work [facility]: Blood hemoglobin measurement (mass/volume)on 06-21-2021 Hemoglobin (Bld) [Mass/Vol] 13.3 g/dL 13.0-16.5 [facility] Work Phone: Blood lymphocytes/100 leukoc yteson 06-21-2021 Lymphocytes/100 WBC (Bld) 26.3 % 19-41 [facility] Work Phone: Blood monocytes/100 leukocyt eson 06-21-2021 Monocytes/100 WBC (Bld) 9.9 % 0-10 [facility] Work Phone: Blood platelet mean volumeon 06-21-2021 Platelet mean volume (Bld) [Entitic vol] 11.5 fL 6.2-12.0 [facility] Work Phone: Determination of erythrocyte mean corpuscular volume (MCV)on 06-21-2021 MCV (RBC) [Entitic vol] 91.0 fL 80-94 [facility] Work Phone: Hematocrit Auto (Bld) [Volum e fraction]on 06-21-2021 Hematocrit (Bld) [Volume fraction] 38.3 % 40-54 [facility] Work Phone: Laboratory - Hematology and Cell countson 06-21-2021 Erythrocyte distribution width (RBC) [Entitic vol] 40.2 fL 35.1-43.9 [facility] Work Phone: Erythrocyte distribution width (RBC) [Ratio] 12.2 % 11.6-14.6 [facility] Work Phone: Immature granulocytes/100 WBC (Bld) 0.400 % 0.0-0.9 [facility] Work Phone: Comment on above: IG% - Immature Granu locytes (promyelocytes, myelocytes and metamyelocytes) > 1% indicates that a LEFT SHIFT is Present. MCH (RBC) [Entitic mass] 31.6 pg 27.0-32.0 [facility] Work Phone: Nucleated RBC/100 WBC (Bld) [Ratio] 0 % 0-5 [facility] Work Phone: MCHC Auto (RBC) [Mass/Vol]on 06-21-2021 MCHC (RBC) [Mass/Vol] 34.7 g/dL 32-36 [facility] Work Phone: Platelets bldon 06-21-2021 Platelets (Bld) [#/Vol] 217 10*3/uL 150-450 [facility] Work Phone: Absolute lymphocyte counton 06-14-2021 Lymphocytes Auto (Unsp spec) [#/Vol] 1.41 10*3/uL 0.83-4.51 [facility] Work Phone: Basophil percentageon 2021 Basophils/100 WBC (Bld) 0.4 % 0-1 [facility] Work Phone: Chloride [Moles/Vol] 106 mmol/L 98-107 [facility] Work Phone: [phone] Eosinophils/100 WBC (Bld) 0.6 % 0-5 [facility] Work Phone: [phone] Glucose [Mass/Vol] 121 mg/dL 74-106 [facility] Work Phone: [phone] Comment on above: Fasting Glucose resu lt from 100 to 125 mg/dL suggests IMPAIRED HOMEOSTASIS per A.D.A. criteria. Neutrophils (Bld) [#/Vol] 4.8 10*3/uL 2.0-7.7 [facility] Work Phone: Neutrophils/100 WBC (Bld) 69.9 % 47-70 [facility] Work Phone: Potassium [Moles/Vol] 3.7 mmol/L 3.5-5.1 [facility] Work Phone: Sodium [Moles/Vol] 140 mmol/L 136-[facility]: WBC (Bld) [#/Vol] 6.8 10*3/uL 4.4-11.0 [facility] Work Phone: Blood erythrocytes count (nu mber/volume)on 06-14-2021 RBC (Bld) [#/Vol] 4.78 10*6/uL 4.6-6.2 [facility]: Blood hemoglobin measurement (mass/volume)on 06-14-2021 Hemoglobin (Bld) [Mass/Vol] 14.9 g/dL 13.0-16.5 [facility] Work Phone: Blood lymphocytes/100 leukoc yteson 06-14-2021 Lymphocytes/100 WBC (Bld) 20.8 % 19-41 [facility] Work Phone: Blood monocytes/100 leukocyt eson 06-14-2021 Monocytes/100 WBC (Bld) 7.7 % 0-10 [facility] Work Phone: Blood platelet mean volumeon 06-14-2021 Platelet mean volume (Bld) [Entitic vol] 11.5 fL 6.2-12.0 [facility] Work Phone: Determination of erythrocyte mean corpuscular volume (MCV)on 06-14-2021 MCV (RBC) [Entitic vol] 89.5 fL 80-94 [facility] Work Phone: Hematocrit Auto (Bld) [Volum e fraction]on 06-14-2021 Hematocrit (Bld) [Volume fraction] 42.8 % 40-54 [facility] Work Phone: Laboratory - Chemistry and C hemistry - challengeon 06-14-2021 CO2 [Moles/Vol] 27.0 mmol/L 21.0-32.0 [facility] Work Phone: Urea nitrogen/Creatinine [Mass ratio] 35.0 mg/mg 10-20 [facility] Work Phone: Laboratory - Hematology and Cell countson 06-14-2021 Erythrocyte distribution width (RBC) [Entitic vol] 39.3 fL 35.1-43.9 [facility] Work Phone: Erythrocyte distribution width (RBC) [Ratio] 12.0 % 11.6-14.6 [facility] Work Phone: Immature granulocytes/100 WBC (Bld) 0.600 % 0.0-0.9 [facility] Work Phone: Comment on above: IG% - Immature Granu locytes (promyelocytes, myelocytes and metamyelocytes) > 1% indicates that a LEFT SHIFT is Present. MCH (RBC) [Entitic mass] 31.2 pg 27.0-32.0 [facility] Work Phone: Nucleated RBC/100 WBC (Bld) [Ratio] 0 % 0-5 [facility] Work Phone: MCHC Auto (RBC) [Mass/Vol]on 06-14-2021 MCHC (RBC) [Mass/Vol] 34.8 g/dL 32-36 [facility] Work Phone: No Panel Informationon 06-14 Estimated GFR (MDRD) Amer 185 mL/min >60 [facility] Work Phone: Comment on above: GFR Calc Estimated GFR (MDRD) Non-Af Amer 153 mL/min >60 [facility] Work Phone: Comment on above: Non- GFR Calc Platelets bldon 06-14-2021 Platelets (Bld) [#/Vol] 223 10*3/uL 150-450 [facility] Work Phone: Serum or plasma calcium gordy urement (mass/volume)on 06-14-2021 Calcium [Mass/Vol] 8.0 mg/dL 8.5-10.1 [facility] Work Phone: Serum or plasma creatinine m easurement (mass/volume)on 06-14-2021 Creatinine [Mass/Vol] 0.57 mg/dL 0.70-1.30 [facility] Work Phone: Comment on above: The validity of the calculated GFR & GFRAA in patients over 70 years has not been determined. Clinical correlation is essential. Serum or plasma urea nitroge n measurement (mass/volume)on 06-14-2021 Urea nitrogen [Mass/Vol] 20 mg/dL 7-18 [facility] Work Phone: Thin prep Papanicolaou smear with manual screeningon 06-14-2021 Thin prep Papanicolaou smear with manual screening 7 5-15 [facility] Work Phone: Absolute lymphocyte counton 06-07-2021 Lymphocytes Auto (Unsp spec) [#/Vol] 1.38 10*3/uL 0.83-4.51 [facility] Work Phone: Basophil percentageon 2021 Basophils/100 WBC (Bld) 0.2 % 0-1 [facility] Work Phone: Eosinophils/100 WBC (Bld) 0.0 % 0-5 [facility] Work Phone: Neutrophils (Bld) [#/Vol] 7.3 10*3/uL 2.0-7.7 [facility] Work Phone: Neutrophils/100 WBC (Bld) 75.3 % 47-70 [facility] Work Phone: WBC (Bld) [#/Vol] 9.7 10*3/uL 4.4-11.0 [facility] Work Phone: Blood erythrocytes count (nu mber/volume)on 06-07-2021 RBC (Bld) [#/Vol] 4.48 10*6/uL 4.6-6.2 [facility]: Blood hemoglobin measurement (mass/volume)on 06-07-2021 Hemoglobin (Bld) [Mass/Vol] 13.8 g/dL 13.0-16.5 [facility] Work Phone: Blood lymphocytes/100 leukoc yteson 06-07-2021 Lymphocytes/100 WBC (Bld) 14.2 % 19-41 [facility] Work Phone: Blood monocytes/100 leukocyt eson 06-07-2021 Monocytes/100 WBC (Bld) 10.2 % 0-10 [facility] Work Phone: Blood platelet mean volumeon 06-07-2021 Platelet mean volume (Bld) [Entitic vol] 11.9 fL 6.2-12.0 [facility] Work Phone: Determination of erythrocyte mean corpuscular volume (MCV)on 06-07-2021 MCV (RBC) [Entitic vol] 92.9 fL 80-94 [facility] Work Phone: Hematocrit Auto (Bld) [Volum e fraction]on 06-07-2021 Hematocrit (Bld) [Volume fraction] 41.6 % 40-54 [facility] Work Phone: Laboratory - Hematology and Cell countson 06-07-2021 Erythrocyte distribution width (RBC) [Entitic vol] 43.8 fL 35.1-43.9 [facility] Work Phone: Erythrocyte distribution width (RBC) [Ratio] 12.8 % 11.6-14.6 [facility] Work Phone: Immature granulocytes/100 WBC (Bld) 0.100 % 0.0-0.9 [facility] Work Phone: Comment on above: IG% - Immature Granu locytes (promyelocytes, myelocytes and metamyelocytes) > 1% indicates that a LEFT SHIFT is Present. MCH (RBC) [Entitic mass] 30.8 pg 27.0-32.0 [facility] Work Phone: Nucleated RBC/100 WBC (Bld) [Ratio] 0 % 0-5 [facility] Work Phone: MCHC Auto (RBC) [Mass/Vol]on 06-07-2021 MCHC (RBC) [Mass/Vol] 33.2 g/dL 32-36 [facility] Work Phone: Platelets bldon 06-07-2021 Platelets (Bld) [#/Vol] 152 10*3/uL 150-450 [facility] Work Phone: Absolute lymphocyte counton 05-31-2021 Lymphocytes Auto (Unsp spec) [#/Vol] 1.72 10*3/uL 0.83-4.51 [facility] Work Phone: Basophil percentageon 2021 Basophils/100 WBC (Bld) 0.7 % 0-1 [facility] Work Phone: Eosinophils/100 WBC (Bld) 1.1 % 0-5 [facility] Work Phone: Neutrophils (Bld) [#/Vol] 3.3 10*3/uL 2.0-7.7 [facility] Work Phone: Neutrophils/100 WBC (Bld) 58.5 % 47-70 [facility] Work Phone: WBC (Bld) [#/Vol] 5.6 10*3/uL 4.4-11.0 [facility] Work Phone: Blood erythrocytes count (nu mber/volume)on 05-31-2021 RBC (Bld) [#/Vol] 4.44 10*6/uL 4.6-6.2 [facility] Work Phone: [phone] Blood hemoglobin measurement (mass/volume)on 05-31-2021 Hemoglobin (Bld) [Mass/Vol] 13.6 g/dL 13.0-16.5 [facility] Work Phone: Blood lymphocytes/100 leukoc yteson 05-31-2021 Lymphocytes/100 WBC (Bld) 30.7 % 19-41 [facility] Work Phone: Blood monocytes/100 leukocyt eson 05-31-2021 Monocytes/100 WBC (Bld) 8.6 % 0-10 [facility] Work Phone: Blood platelet mean volumeon 05-31-2021 Platelet mean volume (Bld) [Entitic vol] 11.2 fL 6.2-12.0 [facility] Work Phone: Determination of erythrocyte mean corpuscular volume (MCV)on 05-31-2021 MCV (RBC) [Entitic vol] 92.1 fL 80-94 [facility] Work Phone: Hematocrit Auto (Bld) [Volum e fraction]on 05-31-2021 Hematocrit (Bld) [Volume fraction] 40.9 % 40-54 [facility] Work Phone: Laboratory - Hematology and Cell countson 05-31-2021 Erythrocyte distribution width (RBC) [Entitic vol] 42.2 fL 35.1-43.9 [facility] Work Phone: Erythrocyte distribution width (RBC) [Ratio] 12.4 % 11.6-14.6 [facility] Work Phone: Immature granulocytes/100 WBC (Bld) 0.400 % 0.0-0.9 [facility] Work Phone: Comment on above: IG% - Immature Granu locytes (promyelocytes, myelocytes and metamyelocytes) > 1% indicates that a LEFT SHIFT is Present. MCH (RBC) [Entitic mass] 30.6 pg 27.0-32.0 [facility] Work Phone: Nucleated RBC/100 WBC (Bld) [Ratio] 0 % 0-5 [facility] Work Phone: MCHC Auto (RBC) [Mass/Vol]on 05-31-2021 MCHC (RBC) [Mass/Vol] 33.3 g/dL 32-36 [facility] Work Phone: Platelets bldon 05-31-2021 Platelets (Bld) [#/Vol] 189 10*3/uL 150-450 [facility] Work Phone: Absolute lymphocyte counton 05-24-2021 Lymphocytes Auto (Unsp spec) [#/Vol] 1.58 10*3/uL 0.83-4.51 [facility] Work Phone: Basophil percentageon 2021 Basophils/100 WBC (Bld) 0.8 % 0-1 [facility] Work Phone: [phone] Eosinophils/100 WBC (Bld) 2.4 % 0-5 [facility] Work Phone: [phone] Neutrophils (Bld) [#/Vol] 3.8 10*3/uL 2.0-7.7 [facility] Work Phone: [phone] Neutrophils/100 WBC (Bld) 60.3 % 47-70 [facility] Work Phone: WBC (Bld) [#/Vol] 6.3 10*3/uL 4.4-11.0 [facility] Work Phone: [phone] Blood erythrocytes count (nu mber/volume)on 05-24-2021 RBC (Bld) [#/Vol] 4.50 10*6/uL 4.6-6.2 [facility] Work [facility]: [phone] Blood hemoglobin measurement (mass/volume)on 05-24-2021 Hemoglobin (Bld) [Mass/Vol] 13.7 g/dL 13.0-16.5 [facility] Work Phone: Blood lymphocytes/100 leukoc yteson 05-24-2021 Lymphocytes/100 WBC (Bld) 25.0 % 19-41 [facility] Work Phone: [phone] Blood monocytes/100 leukocyt eson 05-24-2021 Monocytes/100 WBC (Bld) 11.2 % 0-10 [facility] Work Phone: Blood platelet mean volumeon 05-24-2021 Platelet mean volume (Bld) [Entitic vol] 11.3 fL 6.2-12.0 [facility] Work Phone: Determination of erythrocyte mean corpuscular volume (MCV)on 05-24-2021 MCV (RBC) [Entitic vol] 92.9 fL 80-94 [facility] Work Phone: Hematocrit Auto (Bld) [Volum e fraction]on 05-24-2021 Hematocrit (Bld) [Volume fraction] 41.8 % 40-54 [facility] Work Phone: Laboratory - Hematology and Cell countson 05-24-2021 Erythrocyte distribution width (RBC) [Entitic vol] 42.8 fL 35.1-43.9 [facility] Work Phone: Erythrocyte distribution width (RBC) [Ratio] 12.6 % 11.6-14.6 [facility] Work Phone: Immature granulocytes/100 WBC (Bld) 0.300 % 0.0-0.9 [facility] Work Phone: Comment on above: IG% - Immature Granu locytes (promyelocytes, myelocytes and metamyelocytes) > 1% indicates that a LEFT SHIFT is Present. MCH (RBC) [Entitic mass] 30.4 pg 27.0-32.0 [facility] Work Phone: Nucleated RBC/100 WBC (Bld) [Ratio] 0 % 0-5 [facility] Work Phone: MCHC Auto (RBC) [Mass/Vol]on 05-24-2021 MCHC (RBC) [Mass/Vol] 32.8 g/dL 32-36 [facility] Work Phone: Platelets bldon 05-24-2021 Platelets (Bld) [#/Vol] 207 10*3/uL 150-450 [facility] Work Phone: Absolute lymphocyte counton 05-17-2021 Lymphocytes Auto (Unsp spec) [#/Vol] 1.59 10*3/uL 0.83-4.51 [facility] Work Phone: Basophil percentageon 2021 Basophils/100 WBC (Bld) 0.7 % 0-1 [facility] Work Phone: Eosinophils/100 WBC (Bld) 1.7 % 0-5 [facility] Work Phone: Neutrophils (Bld) [#/Vol] 3.5 10*3/uL 2.0-7.7 [facility] Work Phone: Neutrophils/100 WBC (Bld) 59.5 % 47-70 [facility] Work Phone: WBC (Bld) [#/Vol] 5.9 10*3/uL 4.4-11.0 [facility] Work Phone: Blood erythrocytes count (nu mber/volume)on 05-17-2021 RBC (Bld) [#/Vol] 4.35 10*6/uL 4.6-6.2 [facility] Work [facility]: Blood hemoglobin measurement (mass/volume)on 05-17-2021 Hemoglobin (Bld) [Mass/Vol] 13.4 g/dL 13.0-16.5 [facility] Work Phone: Blood lymphocytes/100 leukoc yteson 05-17-2021 Lymphocytes/100 WBC (Bld) 26.9 % 19-41 [facility] Work Phone: Blood monocytes/100 leukocyt eson 05-17-2021 Monocytes/100 WBC (Bld) 11.0 % 0-10 [facility] Work Phone: Blood platelet mean volumeon 05-17-2021 Platelet mean volume (Bld) [Entitic vol] 11.5 fL 6.2-12.0 [facility] Work Phone: Determination of erythrocyte mean corpuscular volume (MCV)on 05-17-2021 MCV (RBC) [Entitic vol] 92.9 fL 80-94 [facility] Work Phone: Hematocrit Auto (Bld) [Volum e fraction]on 05-17-2021 Hematocrit (Bld) [Volume fraction] 40.4 % 40-54 [facility] Work Phone: Laboratory - Hematology and Cell countson 05-17-2021 Erythrocyte distribution width (RBC) [Entitic vol] 43.4 fL 35.1-43.9 [facility] Work Phone: Erythrocyte distribution width (RBC) [Ratio] 12.7 % 11.6-14.6 [facility] Work Phone: Immature granulocytes/100 WBC (Bld) 0.200 % 0.0-0.9 [facility] Work Phone: Comment on above: IG% - Immature Granu locytes (promyelocytes, myelocytes and metamyelocytes) > 1% indicates that a LEFT SHIFT is Present. MCH (RBC) [Entitic mass] 30.8 pg 27.0-32.0 [facility] Work Phone: Nucleated RBC/100 WBC (Bld) [Ratio] 0 % 0-5 [facility] Work Phone: MCHC Auto (RBC) [Mass/Vol]on 05-17-2021 MCHC (RBC) [Mass/Vol] 33.2 g/dL 32-36 [facility] Work Phone: Platelets bldon 05-17-2021 Platelets (Bld) [#/Vol] 171 10*3/uL 150-450 [facility] Work Phone: ED Provider Noteon 2 ED Provider Note Emergency Department Encounter [facility] ED Patient: Kathya Hooper : 1955 [...] (36.4 ?C) (Temporal) Resp 16 Ht 6' 2" (1.88 m) Wt 83.9 kg (185 lb) [...] are mis-transcribed.) Timothy Burton DO Acute Care [facility] Timothy Burton DO 05/15/21 1530 [facility] ED Provider Note [facility] ED eMERGENCY dEPARTMENT eNCOUnter Pt Name: [...] Diagnosis Date ? TREVER (acute kidney injury) ([facility]) ? Alcohol abuse 07/08/2018 ? Anxiety ? C1 spinal cord injury ([facility]) ? Depression ? Fall 06/2018 ? Schizophrenia ([facility]) SURGICAL HISTORY Past Surgical History: Procedure Laterality [...] included)... Normal [facility] Basophil percentageon 2021 Chloride [Moles/Vol] 105 mmol/L 98-107 [facility] Work Phone: Glucose [Mass/Vol] 96 mg/dL 74-106 [facility] Work Phone: Potassium [Moles/Vol] 3.5 mmol/L 3.5-5.1 [facility] Work Phone: Sodium [Moles/Vol] 141 mmol/L 136-145 [facility] Work Phone: Laboratory - Chemistry and C hemistry - challengeon 05-14-2021 CO2 [Moles/Vol] 30.0 mmol/L 21.0-32.0 [facility] Work Phone: Urea nitrogen/Creatinine [Mass ratio] 39.2 mg/mg 10-20 [facility] Work Phone: No Panel Informationon 05-14 Estimated GFR (MDRD) Amer 210 mL/min >60 [facility] Work Phone: Comment on above: GFR Calc Estimated GFR (MDRD) Non-Af Amer 174 mL/min >60 [facility] Work Phone: Comment on above: Non- GFR Calc Serum or plasma calcium gordy urement (mass/volume)on 05-14-2021 Calcium [Mass/Vol] 8.4 mg/dL 8.5-10.1 [facility] Work Phone: Serum or plasma creatinine m easurement (mass/volume)on 05-14-2021 Creatinine [Mass/Vol] 0.51 mg/dL 0.70-1.30 [facility] Work Phone: Comment on above: The validity of the calculated GFR & GFRAA in patients over 70 years has not been determined. Clinical correlation is essential. Serum or plasma urea nitroge n measurement (mass/volume)on 05-14-2021 Urea nitrogen [Mass/Vol] 20 mg/dL 7-18 [facility] Work Phone: Thin prep Papanicolaou smear with manual screeningon 05-14-2021 Thin prep Papanicolaou smear with manual screening 6 5-15 [facility] Work Phone: Absolute lymphocyte counton 05-10-2021 Lymphocytes Auto (Unsp spec) [#/Vol] 1.65 10*3/uL 0.83-4.51 [facility] Work Phone: Basophil percentageon 2021 Basophils/100 WBC (Bld) 0.5 % 0-1 [facility] Work Phone: Eosinophils/100 WBC (Bld) 0.7 % 0-5 [facility] Work Phone: Neutrophils (Bld) [#/Vol] 5.6 10*3/uL 2.0-7.7 [facility] Work Phone: Neutrophils/100 WBC (Bld) 69.5 % 47-70 [facility] Work Phone: WBC (Bld) [#/Vol] 8.1 10*3/uL 4.4-11.0 [facility]: Blood erythrocytes count (nu mber/volume)on 05-10-2021 RBC (Bld) [#/Vol] 4.52 10*6/uL 4.6-6.2 [facility] Work [facility]: Blood hemoglobin measurement (mass/volume)on 05-10-2021 Hemoglobin (Bld) [Mass/Vol] 13.8 g/dL 13.0-16.5 [facility] Work Phone: Blood lymphocytes/100 leukoc yteson 05-10-2021 Lymphocytes/100 WBC (Bld) 20.4 % 19-41 [facility] Work Phone: Blood monocytes/100 leukocyt eson 05-10-2021 Monocytes/100 WBC (Bld) 8.4 % 0-10 [facility] Work Phone: [phone] Blood platelet mean volumeon 05-10-2021 Platelet mean volume (Bld) [Entitic vol] 11.3 fL 6.2-12.0 [facility] Work Phone: [phone] Determination of erythrocyte mean corpuscular volume (MCV)on 05-10-2021 MCV (RBC) [Entitic vol] 91.8 fL 80-94 [facility] Work Phone: Hematocrit Auto (Bld) [Volum e fraction]on 05-10-2021 Hematocrit (Bld) [Volume fraction] 41.5 % 40-54 [facility] Work Phone: Laboratory - Hematology and Cell countson 05-10-2021 Erythrocyte distribution width (RBC) [Entitic vol] 42.9 fL 35.1-43.9 [facility] Work Phone: [phone] Erythrocyte distribution width (RBC) [Ratio] 12.8 % 11.6-14.6 [facility] Work Phone: [phone] Immature granulocytes/100 WBC (Bld) 0.500 % 0.0-0.9 [facility] Work Phone: Comment on above: IG% - Immature Granu locytes (promyelocytes, myelocytes and metamyelocytes) > 1% indicates that a LEFT SHIFT is Present. MCH (RBC) [Entitic mass] 30.5 pg 27.0-32.0 [facility] Work Phone: [phone] Nucleated RBC/100 WBC (Bld) [Ratio] 0 % 0-5 [facility] Work Phone: MCHC Auto (RBC) [Mass/Vol]on 05-10-2021 MCHC (RBC) [Mass/Vol] 33.3 g/dL 32-36 [facility] Work Phone: [phone] Platelets bldon 05-10-2021 Platelets (Bld) [#/Vol] 191 10*3/uL 150-450 [facility] Work Phone: [phone] Absolute lymphocyte counton 05-03-2021 Lymphocytes Auto (Unsp spec) [#/Vol] 1.69 10*3/uL 0.83-4.51 [facility] Work Phone: Basophil percentageon 2021 Basophils/100 WBC (Bld) 0.6 % 0-1 [facility] Work Phone: Eosinophils/100 WBC (Bld) 0.7 % 0-5 [facility] Work Phone: Neutrophils (Bld) [#/Vol] 4.6 10*3/uL 2.0-7.7 [facility] Work Phone: [phone] Neutrophils/100 WBC (Bld) 64.4 % 47-70 [facility] Work Phone: WBC (Bld) [#/Vol] 7.2 10*3/uL 4.4-11.0 [facility] Work [facility]: Blood erythrocytes count (nu mber/volume)on 05-03-2021 RBC (Bld) [#/Vol] 4.55 10*6/uL [facility].6-[facility] Work Phone: Blood hemoglobin measurement (mass/volume)on 05-03-2021 Hemoglobin (Bld) [Mass/Vol] 14.0 g/dL 13.0-16.5 [facility] Work Phone: Blood lymphocytes/100 leukoc yteson 05-03-2021 Lymphocytes/100 WBC (Bld) 23.6 % 19-41 [facility] Work Phone: Blood monocytes/100 leukocyt eson 05-03-2021 Monocytes/100 WBC (Bld) 10.3 % 0-10 [facility] Work Phone: Blood platelet mean volumeon 05-03-2021 Platelet mean volume (Bld) [Entitic vol] 11.7 fL 6.2-12.0 [facility] Work Phone: Determination of erythrocyte mean corpuscular volume (MCV)on 05-03-2021 MCV (RBC) [Entitic vol] 93.2 fL 80-94 [facility] Work Phone: Hematocrit Auto (Bld) [Volum e fraction]on 05-03-2021 Hematocrit (Bld) [Volume fraction] 42.4 % 40-54 [facility] Work Phone: Laboratory - Hematology and Cell countson 05-03-2021 Erythrocyte distribution width (RBC) [Entitic vol] 44.2 fL 35.1-43.9 [facility] Work Phone: Erythrocyte distribution width (RBC) [Ratio] 13.1 % 11.6-14.6 [facility] Work Phone: Immature granulocytes/100 WBC (Bld) 0.400 % 0.0-0.9 [facility] Work Phone: Comment on above: IG% - Immature Granu locytes (promyelocytes, myelocytes and metamyelocytes) > 1% indicates that a LEFT SHIFT is Present. MCH (RBC) [Entitic mass] 30.8 pg 27.0-32.0 [facility] Work Phone: Nucleated RBC/100 WBC (Bld) [Ratio] 0 % 0-5 [facility] Work Phone: MCHC Auto (RBC) [Mass/Vol]on 05-03-2021 MCHC (RBC) [Mass/Vol] 33.0 g/dL 32-36 [facility] Work Phone: Platelets bldon 05-03-2021 Platelets (Bld) [#/Vol] 175 10*3/uL 150-450 [facility] Work Phone: Absolute lymphocyte counton 04-26-2021 Lymphocytes Auto (Unsp spec) [#/Vol] 1.68 10*3/uL 0.83-4.51 [facility] Work Phone: Basophil percentageon 2020 Eosinophils/100 WBC (Bld) 1.1 % 0-5 [facility] Work Phone: Neutrophils (Bld) [#/Vol] 4.5 10*3/uL 2.0-7.7 [facility] Work Phone: WBC (Bld) [#/Vol] 7.2 10*3/uL 4.4-11.0 [facility] Work Phone: Blood erythrocytes count (nu mber/volume)on 04-26-2021 RBC (Bld) [#/Vol] 4.32 10*6/uL 4.6-6.2 [facility] Work Phone: Blood hemoglobin measurement (mass/volume)on 04-26-2021 Hemoglobin (Bld) [Mass/Vol] 13.5 g/dL 13.0-16.5 [facility] Work Phone: Blood lymphocytes/100 leukoc yteson 04-26-2021 Lymphocytes/100 WBC (Bld) 23.5 % 19-41 [facility] Work Phone: Blood monocytes/100 leukocyt eson 04-26-2021 Monocytes/100 WBC (Bld) 11.0 % 0-10 [facility] Work Phone: Blood platelet mean volumeon 04-26-2021 Platelet mean volume (Bld) [Entitic vol] 11.0 fL 6.2-12.0 [facility] Work Phone: Determination of erythrocyte mean corpuscular volume (MCV)on 04-26-2021 MCV (RBC) [Entitic vol] 93.3 fL 80-94 [facility] Work Phone: Hematocrit Auto (Bld) [Volum e fraction]on 04-26-2021 Hematocrit (Bld) [Volume fraction] 40.3 % 40-54 [facility] Work Phone: Laboratory - Hematology and Cell countson 04-26-2021 Basophils/100 WBC (Unsp spec) 0.6 % 0-1 [facility] Work Phone: Erythrocyte distribution width (RBC) [Entitic vol] 45.8 fL 35.1-43.9 [facility] Work Phone: Erythrocyte distribution width (RBC) [Ratio] 13.2 % 11.6-14.6 [facility] Work Phone: Immature granulocytes/100 WBC (Bld) 0.600 % 0.0-0.9 [facility] Work Phone: Comment on above: IG% - Immature Granu locytes (promyelocytes, myelocytes and metamyelocytes) > 1% indicates that a LEFT SHIFT is Present. MCH (RBC) [Entitic mass] 31.3 pg 27.0-32.0 [facility] Work Phone: Neutrophils/100 WBC (Bld) 63.2 % 47-70 [facility] Work Phone: [phone] Nucleated RBC/100 WBC (Bld) [Ratio] 0 % 0-5 [facility] Work Phone: [phone] MCHC Auto (RBC) [Mass/Vol]on 04-26-2021 MCHC (RBC) [Mass/Vol] 33.5 g/dL 32-36 [facility] Work Phone: [phone] Platelets bldon 04-26-2021 Platelets (Bld) [#/Vol] 172 10*3/uL 150-450 [facility] Work Phone: [phone] Absolute lymphocyte counton 04-19-2021 Lymphocytes Auto (Unsp spec) [#/Vol] 1.31 10*3/uL 0.83-4.51 [facility] Work Phone: Basophil percentageon 2020 Eosinophils/100 WBC (Bld) 2.8 % 0-5 [facility] Work Phone: [phone] Neutrophils (Bld) [#/Vol] 3.0 10*3/uL 2.0-7.7 [facility] Work Phone: [phone] WBC (Bld) [#/Vol] 5.0 10*3/uL 4.4-11.0 [facility] Work Phone: Blood erythrocytes count (nu mber/volume)on 04-19-2021 RBC (Bld) [#/Vol] 4.26 10*6/uL 4.6-6.2 [facility]: [phone] Blood hemoglobin measurement (mass/volume)on 04-19-2021 Hemoglobin (Bld) [Mass/Vol] 13.2 g/dL 13.0-16.5 [facility] Work Phone: [phone] Blood lymphocytes/100 leukoc yteson 04-19-2021 Lymphocytes/100 WBC (Bld) 26.1 % 19-41 [facility] Work Phone: [phone] Blood monocytes/100 leukocyt eson 04-19-2021 Monocytes/100 WBC (Bld) 10.0 % 0-10 [facility] Work Phone: Blood platelet mean volumeon 04-19-2021 Platelet mean volume (Bld) [Entitic vol] 10.9 fL 6.2-12.0 [facility] Work Phone: Determination of erythrocyte mean corpuscular volume (MCV)on 04-19-2021 MCV (RBC) [Entitic vol] 93.7 fL 80-94 [facility] Work Phone: Hematocrit Auto (Bld) [Volum e fraction]on 04-19-2021 Hematocrit (Bld) [Volume fraction] 39.9 % 40-54 [facility] Work Phone: Laboratory - Hematology and Cell countson 04-19-2021 Basophils/100 WBC (Unsp spec) 1.0 % 0-1 [facility] Work Phone: Erythrocyte distribution width (RBC) [Entitic vol] 46.7 fL 35.1-43.9 [facility] Work Phone: Erythrocyte distribution width (RBC) [Ratio] 13.7 % 11.6-14.6 [facility] Work Phone: Immature granulocytes/100 WBC (Bld) 0.400 % 0.0-0.9 [facility] Work Phone: Comment on above: IG% - Immature Granu locytes (promyelocytes, myelocytes and metamyelocytes) > 1% indicates that a LEFT SHIFT is Present. MCH (RBC) [Entitic mass] 31.0 pg 27.0-32.0 [facility] Work Phone: Neutrophils/100 WBC (Bld) 59.7 % 47-70 [facility] Work Phone: Nucleated RBC/100 WBC (Bld) [Ratio] 0 % 0-5 [facility] Work Phone: MCHC Auto (RBC) [Mass/Vol]on 04-19-2021 MCHC (RBC) [Mass/Vol] 33.1 g/dL 32-36 [facility] Work Phone: [phone] Platelets bldon 04-19-2021 Platelets (Bld) [#/Vol] 165 10*3/uL 150-450 [facility] Work Phone: [phone] Absolute lymphocyte counton 04-12-2021 Lymphocytes Auto (Unsp spec) [#/Vol] 1.41 10*3/uL 0.83-4.51 [facility] Work Phone: Basophil percentageon 2020 Bilirubin [Mass/Vol] 0.40 mg/dL 0.20-1.00 [facility] Work Phone: [phone] Comment on above: For patients on eltr ombopag therapy, use of Dimension [place] TBIL is not recommended. Eosinophils/100 WBC (Bld) 0.9 % 0-5 [facility] Work Phone: Neutrophils (Bld) [#/Vol] 3.4 10*3/uL 2.0-7.7 [facility] Work Phone: [phone] Protein [Mass/Vol] 5.7 g/dL 6.4-8.2 [facility] Work Phone: [phone] WBC (Bld) [#/Vol] 5.5 10*3/uL 4.4-11.0 [facility] Work Phone: Blood erythrocytes count (nu mber/volume)on 04-12-2021 RBC (Bld) [#/Vol] 4.09 10*6/uL 4.6-6.2 [facility] Work Phone: Blood hemoglobin measurement (mass/volume)on 04-12-2021 Hemoglobin (Bld) [Mass/Vol] 12.4 g/dL 13.0-16.5 [facility] Work Phone: Blood lymphocytes/100 leukoc yteson 04-12-2021 Lymphocytes/100 WBC (Bld) 25.9 % 19-41 [facility] Work Phone: Blood monocytes/100 leukocyt eson 04-12-2021 Monocytes/100 WBC (Bld) 9.2 % 0-10 [facility] Work Phone: Blood platelet mean volumeon 04-12-2021 Platelet mean volume (Bld) [Entitic vol] 11.1 fL 6.2-12.0 [facility] Work Phone: Determination of erythrocyte mean corpuscular volume (MCV)on 04-12-2021 MCV (RBC) [Entitic vol] 93.4 fL 80-94 [facility] Work Phone: Direct bilirubinon 1 Bilirubin.direct [Mass/Vol] 0.08 mg/dL 0.00-0.30 [facility] Work Phone: Hematocrit Auto (Bld) [Volum e fraction]on 04-12-2021 Hematocrit (Bld) [Volume fraction] 38.2 % 40-54 [facility] Work Phone: Laboratory - Chemistry and C hemistry - challengeon 04-12-2021 ALP [Catalytic activity/Vol] 101 U/L 45-117 [facility] Work Phone: ALT [Catalytic activity/Vol] 30 U/L 16-61 [facility] Work Phone: Globulin (S) [Mass/Vol] 2.9 g/dL 2.2-4.2 [facility] Work Phone: Laboratory - Hematology and Cell countson 04-12-2021 Basophils/100 WBC (Unsp spec) 0.6 % 0-1 [facility] Work Phone: Erythrocyte distribution width (RBC) [Entitic vol] 46.7 fL 35.1-43.9 [facility] Work Phone: Erythrocyte distribution width (RBC) [Ratio] 13.7 % 11.6-14.6 [facility] Work Phone: Immature granulocytes/100 WBC (Bld) 0.400 % 0.0-0.9 [facility] Work Phone: Comment on above: IG% - Immature Granu locytes (promyelocytes, myelocytes and metamyelocytes) > 1% indicates that a LEFT SHIFT is Present. MCH (RBC) [Entitic mass] 30.3 pg 27.0-32.0 [facility] Work Phone: Neutrophils/100 WBC (Bld) 63.0 % 47-70 [facility] Work Phone: Nucleated RBC/100 WBC (Bld) [Ratio] 0 % 0-5 [facility] Work Phone: MCHC Auto (RBC) [Mass/Vol]on 04-12-2021 MCHC (RBC) [Mass/Vol] 32.5 g/dL 32-36 [facility] Work Phone: Platelets bldon 04-12-2021 Platelets (Bld) [#/Vol] 173 10*3/uL 150-450 [facility] Work Phone: Serum or plasma albumin gordy urement (mass/volume)on 04-12-2021 Albumin [Mass/Vol] 2.8 g/dL 3.2-5.0 [facility] Work Phone: Thin prep Papanicolaou smear with manual screeningon 04-12-2021 Thin prep Papanicolaou smear with manual screening 15 U/L 15-37 [facility] Work Phone: Absolute lymphocyte counton 04-07-2021 Lymphocytes Auto (Unsp spec) [#/Vol] 1.55 10*3/uL 0.83-4.51 [facility] Work Phone: Basophil percentageon 2020 Eosinophils/100 WBC (Bld) 0.7 % 0-5 [facility] Work Phone: Neutrophils (Bld) [#/Vol] 5.3 10*3/uL 2.0-7.7 [facility] Work Phone: WBC (Bld) [#/Vol] 8.1 10*3/uL 4.4-11.0 [facility] Work Phone: Blood erythrocytes count (nu mber/volume)on 04-07-2021 RBC (Bld) [#/Vol] 4.18 10*6/uL 4.6-6.2 [facility] Work [facility]: Blood hemoglobin measurement (mass/volume)on 04-07-2021 Hemoglobin (Bld) [Mass/Vol] 12.9 g/dL 13.0-16.5 [facility] Work Phone: Blood lymphocytes/100 leukoc yteson 04-07-2021 Lymphocytes/100 WBC (Bld) 19.2 % 19-41 [facility] Work Phone: Blood monocytes/100 leukocyt eson 04-07-2021 Monocytes/100 WBC (Bld) 13.0 % 0-10 [facility] Work Phone: Blood platelet mean volumeon 04-07-2021 Platelet mean volume (Bld) [Entitic vol] 10.9 fL 6.2-12.0 [facility] Work Phone: Determination of erythrocyte mean corpuscular volume (MCV)on 04-07-2021 MCV (RBC) [Entitic vol] 92.6 fL 80-94 [facility] Work Phone: Hematocrit Auto (Bld) [Volum e fraction]on 04-07-2021 Hematocrit (Bld) [Volume fraction] 38.7 % 40-54 [facility] Work Phone: Laboratory - Hematology and Cell countson 04-07-2021 Basophils/100 WBC (Unsp spec) 0.6 % 0-1 [facility] Work Phone: Erythrocyte distribution width (RBC) [Entitic vol] 45.8 fL 35.1-43.9 [facility] Work Phone: Erythrocyte distribution width (RBC) [Ratio] 13.5 % 11.6-14.6 [facility] Work Phone: Immature granulocytes/100 WBC (Bld) 0.500 % 0.0-0.9 [facility] Work Phone: Comment on above: IG% - Immature Granu locytes (promyelocytes, myelocytes and metamyelocytes) > 1% indicates that a LEFT SHIFT is Present. MCH (RBC) [Entitic mass] 30.9 pg 27.0-32.0 [facility] Work Phone: Neutrophils/100 WBC (Bld) 66.0 % 47-70 [facility] Work Phone: Nucleated RBC/100 WBC (Bld) [Ratio] 0 % 0-5 [facility] Work Phone: MCHC Auto (RBC) [Mass/Vol]on 04-07-2021 MCHC (RBC) [Mass/Vol] 33.3 g/dL 32-36 [facility] Work Phone: Platelets bldon 04-07-2021 Platelets (Bld) [#/Vol] 210 10*3/uL 150-450 [facility] Work Phone: CULTURE BLOODon 03-25-2021 Microscopic examination of blood, culture CULTURE BLOOD --> Status: F No growth at 5 days. Normal [facility] Comment on above: Performed By: #### C /BLD ####[address] [place] [address] CULTURE BLOOD (Two)on 2020 Microscopic examination of blood, culture CULTURE BLOOD (Two) --> Status: F No growth at 5 days. Normal [facility] Comment on above: Performed By: #### C /BLT ####[facility] [place] [address] Basic Metabolic Panelon 03-02 Calcium [Mass/Vol] 8.8 mg/dL Normal 8.4-10.4 [facility] Comment on above: Performed By: #### H EMDF, BMP3 #### [facility] [address] [place] [address] Glucose [Mass/Vol] 103 mg/dL High 70-100 [facility] Comment on above: Performed By: #### H MAYKEL BMP3 #### [facility] [address] [place] [address] Anion gap [Moles/Vol] 5 mmol/L Normal 3-13 [facility] Comment on above: Performed By: #### H MAYKEL BMP3 #### [facility] [address] [place] [address] CO2 [Moles/Vol] 26 mmol/L Normal 22-30 [facility] Comment on above: Performed By: #### H MAYKEL BMP3 #### [facility] [address] [place] [address] Creatinine [Mass/Vol] 0.49 mg/dL Low 0.52-1.25 [facility] Comment on above: Performed By: #### H MAYKEL BMP3 #### [facility] [address] [place] [address] eGFR OTHER > 90.0 Normal >60 [facility] Comment on above: Result Comment: KDIG O [...] Performed By: #### H MAYKEL BMP3 #### [facility] [address] [place] [address] GFR/1.73 sq M.predicted among blacks MDRD (S/P/Bld) [Vol rate/Area] mL/min/{1.73_m2} Normal >60 [facility] Comment on above: Performed By: #### H EMDF, BMP3 #### [facility] [address] [place] [address] Urea nitrogen [Mass/Vol] 30 mg/dL High 7-17 [facility] Comment on above: Performed By: #### H EMDF, BMP3 #### [facility] [address] [place] [address] Chloride [Moles/Vol] 112 mmol/L High 98-107 [facility] Comment on above: Performed By: #### H EMDF, BMP3 #### [facility] [address] [place] [address] Potassium [Moles/Vol] 4.1 mmol/L Normal 3.5-5.1 [facility] Comment on above: Performed By: #### H EMDF, BMP3 #### [facility] [address] [place] [address] Sodium [Moles/Vol] 142 mmol/L Normal 135-145 [facility] Comment on above: Performed By: #### H EMDF, BMP3 #### [facility] [address] [place] [address] Anion gap [Moles/Vol] 5 mmol/L 3 - 13 mmol/L [facility] Work Phone: Calcium [Mass/Vol] 8.8 mg/dL 8.4 - 10. 4 mg/dL [facility] Work Phone: Chloride [Moles/Vol] 112 mmol/L High 98 - 10 7 mmol/L [facility] Work Phone: CO2 [Moles/Vol] 26 mmol/L 22 - 30 mmol/L [facility] Work Phone: Creatinine [Mass/Vol] 0.49 mg/dL Low 0.52 - 1.25 mg/dL [facility] Work Phone: EGFR IF NonAfrican Niuean >90.0 >60 mL/min [facility] Work Phone: Comment on above: KDIGO [...] MDRD (S/P/Bld) [Vol rate/Area] mL/min/{1.73_m2} >60 mL/min [employer] Work Phone: Glucose [Mass/Vol] 103 mg/dL High 70 - 100 mg/dL [employer] Work Phone: Interpretation and review of laboratory results Abnormal [employer] Work Phone: Potassium [Moles/Vol] 4.1 mmol/L 3.5 - 5.1 mmol/L [employer] Work Phone: Sodium [Moles/Vol] 142 mmol/L 135 - 145 mmol/L [employer] Work Phone: Urea nitrogen (BldV) [Mass/Vol] 30 mg/dL High 7 - 17 mg/dL [employer] Work Phone: Test Performed by [facility], [address] [place], [place] [id number] [place] [address] LAB [facility] Work Phone: CBC Auto Differentialon 11- Hematocrit (Bld) [Volume fraction] 35.0 % Low 40.0 - 52.0 % [employer] Work Phone: Hemoglobin.gastrointest inal spec 1 Ql (Stl) 11.7 g/dL Low 13.0 - 18.0 g/dL [employer] Work Phone: Interpretation and review of laboratory results Abnormal [facility] Work Phone: MCH (RBC) [Entitic mass] 31.0 pg 26.0 - 34.0 pg [employer] Work Phone: MCHC (RBC) [Mass/Vol] 33.4 % 32.0 - 36.0 % [employer] Work Phone: MCV (RBC) [Entitic vol] 92.7 fL 80.0 - 98.0 fL [employer] Work Phone: Platelet distribution width (Bld) [Ratio] 13.4 % 11.5 - 14.5 % [employer] Work Phone: Platelet mean volume (Bld) [Entitic vol] 8.6 fL 7.4 - 10.4 fL [facility] Work Phone: Platelets (Bld) [#/Vol] 236 10*3/uL 140 - 440 10*3/uL [facility] Work Phone: RBC (Bld) [#/Vol] 3.77 10*6/uL Low 4.40 - 5.9 0 10*6/uL [facility] Work Phone: WBC (Bld) [#/Vol] 12.8 10*3/uL High 3.6 - 10.7 10*3/uL [facility] Work Phone: Test Performed by [facility] [email or web address], [address], [place], [place] [address] [facility] Work Phone: Glucose,Bedsideon 03-24-2021 Glucose [Mass/Vol] 93 mg/dL Normal 70-100 [facility] Comment on above: Result Comment: Test performed by glucose meter. Results may be 10%-15% lower than serum/plasma values. (CLIA ID [id number]) Performed By: #### H EMD, BMP3 #### [facility] [address] [place] [address] Glucose [Mass/Vol] 166 mg/dL High 70-100 [facility] Comment on above: Result Comment: Test performed by glucose meter. Results may be 10%-15% lower than serum/plasma values. (CLIA ID [id number]) Performed By: #### B GLU ####[facility] [place] [id number] Hemogram w/ Autodiffon 03-24 Erythrocyte distribution width (RBC) [Ratio] 13.4 % Normal 11.5-14.5 [facility] Comment on above: Performed By: #### H EMDF, BMP3 #### [facility] [address] [place] [address] Hematocrit (Bld) [Volume fraction] 35.0 % Low 40.0-52.0 [facility] Comment on above: Performed By: #### H EMDF, BMP3 #### [facility] [address] [place] [address] Hemoglobin (Bld) [Mass/Vol] 11.7 g/dL Low 13.0-18.0 [facility] Comment on above: Performed By: #### H EMDF, BMP3 #### [facility] [address] [place] [address] MCH (RBC) [Entitic mass] 31.0 pg Normal 26.0-34.0 [facility] Comment on above: Performed By: #### H EMDF, BMP3 #### [facility] [address] [place] [address] MCHC 33.4 % Normal 32.0-36.0 [facility] Comment on above: Performed By: #### H EMDF, BMP3 #### [facility] [address] [place] [address] MCV (RBC) [Entitic vol] 92.7 fL Normal 80.0-98.0 [facility] Comment on above: Performed By: #### H EMDF, BMP3 #### [facility] [address] [place] [address] Platelet mean volume (Bld) [Entitic vol] 8.6 fL Normal 7.4-10.4 [facility] Comment on above: Performed By: #### H EMDF, BMP3 #### [facility] [address] [place] [address] Platelets (Bld) [#/Vol] 236 10*3/uL Normal 140-440 [facility] Comment on above: Performed By: #### H EMDF, BMP3 #### [facility] [address] [place] [address] RBC (Bld) [#/Vol] 3.77 10*6/uL Low 4.40-5.90 [facility] Comment on above: Performed By: #### H EMDF, BMP3 #### [facility] [address] [place] [address] WBC (Bld) [#/Vol] 12.8 10*3/uL High 3.6-10.7 [facility] Comment on above: Performed By: #### H EMDF, BMP3 #### [place] [address] [place] [address] Manual Diffon 03-24-2021 Abs Lymph Cnt 1.7 10*3/uL Normal 1.1-4.5 [facility] Comment on above: Performed By: #### H EMDF, BMP3 #### [facility] [address] [place] [address] Abs Monocyte Cnt 0.8 10*3/uL Normal 0.2-1.1 [facility] Comment on above: Performed By: #### H EMDF, BMP3 #### [facility] [address] [place] [address] Abs Neutrophile Cnt 10.1 10*3/uL High 2.2-8.2 [facility] Comment on above: Performed By: #### H EMDF, BMP3 #### [facility] [address] [place] [address] Anisocytosis Slight Normal [facility] Comment on above: Performed By: #### H EMDF, BMP3 #### [facility] [address] [place] [address] Atypical Lymphocytes 2 % Abnormal <1 [facility] Comment on above: Performed By: #### H EMDF, BMP3 #### [facility] [address] [place] [address] Ferguson Cells Slight Normal [facility] Comment on above: Performed By: #### H EMDF, BMP3 #### [facility] [address] [place] [address] Lymphocytes 11 % Low 20-40 [facility] Comment on above: Performed By: #### H EMDF, BMP3 #### [facility] [address] [place] [address] Monocytes 6 % Normal 2-10 [facility] Comment on above: Performed By: #### H EMDF, BMP3 #### [facility] [address] [place] [address] Myelocytes 2 % Abnormal <1 [facility] Comment on above: Performed By: #### H EMDF, BMP3 #### [facility] [address] [place] [address] Ovalocytes Slight Normal [facility] Comment on above: Performed By: #### H EMDF, BMP3 #### [facility] [address] [place] [address] Poikilocytosis Slight Normal [facility] Comment on above: Performed By: #### H EMDF, BMP3 #### [facility] [address] [place] [address] Polychromasia Slight Normal [facility] Comment on above: Performed By: #### H EMDF, BMP3 #### [facility] [address] [place] [address] RBC Morphology ABNORMAL Normal [facility] Comment on above: Performed By: #### H EMDF, BMP3 #### [facility] [address] [place] [address] Seg Neutrophils 79 % Normal 40-80 [facility] Comment on above: Performed By: #### H EMDF, BMP3 #### [facility] [address] [place] [address] Tear Drop Forms Slight Normal [facility] Comment on above: Performed By: #### H EMDF, BMP3 #### [facility] [address] [place] [address] Abs Baso Cnt 0.0 10*3/uL Normal 0.0-0.2 [facility] [place] [facility] Comment on above: Performed By: #### H EMDF, BMP3 #### [facility] [address] [place] [address] Abs Eosin Cnt 0.0 10*3/uL Normal 0.0-0.5 [facility] Comment on above: Performed By: #### H EMDF, BMP3 #### [facility] [address] [place] [address] Bands 0 % Normal 0-3 [facility] Comment on above: Performed By: #### H EMDF, BMP3 #### [facility] [address] [place] [address] Basophils 0 % Normal 0-2 [facility] Comment on above: Performed By: #### H EMDF, BMP3 #### [facility] [address] [place] [address] Cells counted 100 Normal [facility] [place] [facility] Comment on above: Performed By: #### H EMDF, BMP3 #### [facility] [address] [place] [address] Eosinophils 0 % Low 1-6 [facility] Comment on above: Performed By: #### H EMDF, BMP3 #### [facility] [address] [place] [address] Manual Differentialon 2020 Absolute Baso # 0.0 10*3/uL 0.0 - 0.2 10*3/uL [employer] Work Phone: Absolute Eos # 0.0 10*3/uL 0.0 - 0.5 10*3/uL [employer] Work Phone: Absolute Lymph # 1.7 10*3/uL 1.1 - 4.5 10*3/uL [employer] Work Phone: Absolute Brooke # 0.8 10*3/uL 0.2 - 1.1 10*3/uL [employer] Work Phone: Absolute Neut # 10.1 10*3/uL High 2.2 - 8.2 10*3/uL [employer] Work Phone: Anisocytosis Slight [employer] Work Phone: Atypical Lymphocytes 2 % Abnormal <1 [facility] Work Phone: Bands 0 % 0 - 3 % [facility] Work Phone: Basophils/100 WBC (Bld) 0 % 0 - 2 % [facility] Work Phone: Ferguson Cells Slight [facility] Work Phone: Eosinophils/100 WBC [...] [facility] Work Phone: Tear Drop Cells Slight [facility] Work Phone: TOTAL CELLS COUNTED 100 [facility] Work Phone: Test Performed by [employer], [address] [place], [place] [address] [facility] Work Phone: POCT Glucoseon 03-24-2021 Glucose [Mass/Vol] 93 mg/dL 70 - 100 mg/dL [facility] Work Phone: Comment on above: Test performed by ucose meter. Results may be 10%-15% lower than serum/plasma values. (CLIA ID [id number]) Test Performed by [facility], [address] [place], [place] [address] [facility] Work Phone: Basic Metabolic Panelon 11-2 Calcium [Mass/Vol] 8.8 mg/dL Normal 8.4-10.4 [facility] Comment on above: Performed By: #### H EMDF, BMP3 #### [facility] [address] [place] [address] Glucose [Mass/Vol] 143 mg/dL High 70-100 [facility] Comment on above: Performed By: #### H EMDF, BMP3 #### [facility] [address] [place] [address] Anion gap [Moles/Vol] 8 mmol/L Normal 3-13 [facility] Comment on above: Performed By: #### H EMDF, BMP3 #### [facility] [address] [place] [address] CO2 [Moles/Vol] 24 mmol/L Normal 22-30 [facility] Comment on above: Performed By: #### H EMDF, BMP3 #### [facility] [address] [place] [address] Creatinine [Mass/Vol] 0.47 mg/dL Low 0.52-1.25 [facility] Comment on above: Performed By: #### H EMDF, BMP3 #### [facility] [address] [place] [address] eGFR OTHER > 90.0 Normal >60 [facility] Comment on above: Result Comment: KDIG O [...] Performed By: #### H MAYKEL BMP3 #### [facility] [address] [place] [address] GFR/1.73 sq M.predicted among blacks MDRD (S/P/Bld) [Vol rate/Area] mL/min/{1.73_m2} Normal >60 [facility] Comment on above: Performed By: #### H MAYKEL BMP3 #### [facility] [address] [place] [address] Urea nitrogen [Mass/Vol] 32 mg/dL High 7-17 [facility] Comment on above: Performed By: #### H MAYKEL BMP3 #### [facility] [address] [place] [address] Chloride [Moles/Vol] 110 mmol/L High 98-107 [facility] Comment on above: Performed By: #### H MAYKEL BMP3 #### [facility] [address] [place] [address] Potassium [Moles/Vol] 3.9 mmol/L Normal 3.5-5.1 [facility] Comment on above: Performed By: #### H MAYKEL BMP3 #### [facility] [address] [place] [address] Sodium [Moles/Vol] 142 mmol/L Normal 135-145 [facility] Comment on above: Performed By: #### H MAYKEL BMP3 #### [facility] [address] [place] [address] Anion gap [Moles/Vol] 8 mmol/L 3 - 13 mmol/L [facility] Work Phone: Calcium [Mass/Vol] 8.8 mg/dL 8.4 - 10. 4 mg/dL [facility] Work Phone: Chloride [Moles/Vol] 110 mmol/L High 98 - 10 7 mmol/L [facility] Work Phone: CO2 [Moles/Vol] 24 mmol/L 22 - 30 mmol/L [facility] Work Phone: Creatinine [Mass/Vol] 0.47 mg/dL Low 0.52 - 1.25 mg/dL [employer] Work Phone: EGFR IF NonAfrican Niuean >90.0 >60 mL/min [employer] Work Phone: Comment on above: KDIGO [...] MDRD (S/P/Bld) [Vol rate/Area] mL/min/{1.73_m2} >60 mL/min [employer] Work Phone: Glucose [Mass/Vol] 143 mg/dL High 70 - 100 mg/dL [employer] Work Phone: Interpretation and review of laboratory results Abnormal [employer] Work Phone: Potassium [Moles/Vol] 3.9 mmol/L 3.5 - 5.1 mmol/L [employer] Work Phone: Sodium [Moles/Vol] 142 mmol/L 135 - 145 mmol/L [employer] Work Phone: Urea nitrogen (BldV) [Mass/Vol] 32 mg/dL High 7 - 17 mg/dL [employer] Work Phone: [facility], [address] [facility]. [place], [place] [id number] [place] [address] LAB [employer] Work Phone: CBC Auto Differentialon 11-2 Absolute Baso # 0.0 10*3/uL 0.0 - 0.2 10*3/uL [facility] Work Phone: Absolute Neut # 13.5 10*3/uL High 1.8 - 7.0 10*3/uL [facility] Work Phone: Basophils/100 WBC (Bld) 0.3 % 0.0 - 2.0 % [facility] Work Phone: Eosinophils (Bld) [#/Vol] 0.0 10*3/uL 0.0 - 0.5 10*3/uL [facility] Work Phone: Eosinophils/100 WBC (Bld) 0.0 % Low 1.0 - 6.0 % [facility] Work Phone: Granulocytes/100 WBC (Bld) 89.5 % High 40.0 - 80.0 % [facility] Work Phone: Hematocrit (Bld) [Volume fraction] 36.5 % Low 40.0 - 52.0 % [employer] Work Phone: Hemoglobin.gastrointest inal spec 1 Ql (Stl) 12.4 g/dL Low 13.0 - 18.0 g/dL [employer] Work Phone: Interpretation and review of laboratory results Abnormal [employer] Work Phone: Lymphocytes (Bld) [#/Vol] 0.7 10*3/uL Low 1.0 - 4.3 10*3/uL [facility] Work Phone: Lymphocytes/100 WBC (Bld) 4.8 % Low 20.0 - 40.0 % [facility] Work Phone: MCH (RBC) [Entitic mass] 31.3 pg 26.0 - 34.0 pg [facility] Work Phone: MCHC (RBC) [Mass/Vol] 34.1 % 32.0 - 36.0 % [facility] Work Phone: MCV (RBC) [Entitic vol] 92.0 fL 80.0 - 98.0 fL [employer] Work Phone: Monocytes (Bld) [#/Vol] 0.8 10*3/uL 0.0 - 0.8 10*3/uL [employer] Work Phone: Monocytes/100 WBC (Bld) 5.4 % 2.0 - 10.0 % [employer] Work Phone: Platelet distribution width (Bld) [Ratio] 13.2 % 11.5 - 14.5 % [employer] Work Phone: Platelet mean volume (Bld) [Entitic vol] 9.0 fL 7.4 - 10.4 fL [employer] Work Phone: Platelets (Bld) [#/Vol] 211 10*3/uL 140 - 440 10*3/uL [employer] Work Phone: RBC (Bld) [#/Vol] 3.96 10*6/uL Low 4.40 - 5.9 0 10*6/uL [employer] Work Phone: WBC (Bld) [#/Vol] 15.1 10*3/uL High 3.6 - 10.7 10*3/uL [employer] Work Phone: Test Performed by [employer], [address] [place], [place] [id number] [place] [address] LAB [facility] Work Phone: Glucose,Bedsideon 03-23-2021 Glucose [Mass/Vol] 122 mg/dL High 70-100 [facility] Comment on above: Result Comment: Test performed by glucose meter. Results may be 10%-15% lower than serum/plasma values. (CLIA ID [id number]) Performed By: #### H EMDF, BMP3 #### [facility] [address] [place] [address] Glucose [Mass/Vol] 129 mg/dL High 70-100 [facility] Comment on above: Test performed by gl ucose meter. Results may be 10%-15% lower than serum/plasma values. (CLIA ID [id number]) Result Comment: Test performed by glucose meter. Results may be 10%-15% lower than serum/plasma values. (CLIA ID [id number]) Performed By: #### B GLU ####[facility] [place] [address] Glucose [Mass/Vol] 136 mg/dL High 70-100 [facility] Comment on above: Result Comment: Test performed by glucose meter. Results may be 10%-15% lower than serum/plasma values. (CLIA ID [id number]) Performed By: #### B GLU #### [facility] [address] [place] [address] Hemogram w/ Autodiffon 03-23 Abs Baso Cnt 0.0 10*3/uL Normal 0.0-0.2 [facility] Comment on above: Performed By: #### H EMDF, BMP3 #### [facility] [address] [place] [address] Abs Neutrophile Cnt 13.5 10*3/uL High 1.8-7.0 [facility] Comment on above: Performed By: #### H EMDF, BMP3 #### [facility] [address] [place] [address] Basophils/100 WBC (Bld) 0.3 % Normal 0.0-2.0 [facility] Comment on above: Performed By: #### H EMDF, BMP3 #### [facility] [address] [place] [address] Eosinophils (Bld) [#/Vol] 0.0 10*3/uL Normal 0.0-0.5 [facility] Comment on above: Performed By: #### H EMDF, BMP3 #### [facility] [address] [place] [address] Eosinophils/100 WBC (Bld) 0.0 % Low 1.0-6.0 [facility] Comment on above: Performed By: #### H EMDF, BMP3 #### [facility] [address] [place] [address] Erythrocyte distribution width (RBC) [Ratio] 13.2 % Normal 11.5-14.5 [facility] Comment on above: Performed By: #### H EMDF, BMP3 #### [facility] [address] [place] [address] Granulocytes/100 WBC (Bld) 89.5 % High 40.0-80.0 [facility] Comment on above: Performed By: #### H EMDF, BMP3 #### [facility] [address] [place] [address] Hematocrit (Bld) [Volume fraction] 36.5 % Low 40.0-52.0 [facility] Comment on above: Performed By: #### H EMDF, BMP3 #### [facility] [address] [place] [address] Hemoglobin (Bld) [Mass/Vol] 12.4 g/dL Low 13.0-18.0 [facility] Comment on above: Performed By: #### H EMDF, BMP3 #### [facility] [address] [place] [address] Lymphocytes (Bld) [#/Vol] 0.7 10*3/uL Low 1.0-4.3 [facility] Comment on above: Performed By: #### H EMDF, BMP3 #### [facility] [address] [place] [address] Lymphocytes/100 WBC (Bld) 4.8 % Low 20.0-40.0 [facility] Comment on above: Performed By: #### H EMDF, BMP3 #### [facility] [address] [place] [address] MCH (RBC) [Entitic mass] 31.3 pg Normal 26.0-34.0 [facility] Comment on above: Performed By: #### H EMDF, BMP3 #### [facility] [address] [place] [address] MCHC 34.1 % Normal 32.0-36.0 [facility] Comment on above: Performed By: #### H EMDF, BMP3 #### [facility] [address] [place] [address] MCV (RBC) [Entitic vol] 92.0 fL Normal 80.0-98.0 [facility] Comment on above: Performed By: #### H EMDF, BMP3 #### [facility] [address] [place] [address] Monocytes (Bld) [#/Vol] 0.8 10*3/uL Normal 0.0-0.8 [facility] Comment on above: Performed By: #### H EMDF, BMP3 #### [facility] [address] [place] [address] Monocytes/100 WBC (Bld) 5.4 % Normal 2.0-10.0 [facility] Comment on above: Performed By: #### H EMDF, BMP3 #### [facility] [address] [place] [address] Platelet mean volume (Bld) [Entitic vol] 9.0 fL Normal 7.4-10.4 [facility] Comment on above: Performed By: #### H EMDF, BMP3 #### [facility] [address] [place] [address] Platelets (Bld) [#/Vol] 211 10*3/uL Normal 140-440 [facility] Comment on above: Performed By: #### H EMDF, BMP3 #### [facility] [address] [place] [address] RBC (Bld) [#/Vol] 3.96 10*6/uL Low 4.40-5.90 [facility] Comment on above: Performed By: #### H EMDF, BMP3 #### [facility] [address] [place] [address] WBC (Bld) [#/Vol] 15.1 10*3/uL High 3.6-10.7 [facility] Comment on above: Performed By: #### H EMDF, BMP3 #### [facility] [address] [place] [address] No Panel Informationon 03-23 Interpretation and review of laboratory results Abnormal [facility] Work Phone: Test Performed by [facility], [address] [place] [address] [facility] LAB [facility] Work Phone: POCT Glucoseon 03-23-2021 Glucose [Mass/Vol] 166 mg/dL High 70 - 100 mg/dL [facility] Comment on above: Test performed by gl ucose meter. Results may be 10%-15% lower than serum/plasma values. (CLIA ID [id number]) Interpretation and review of laboratory results Abnormal [facility] Test Performed by [facility] [email or web address], [address] LAB [facility] Glucose [Mass/Vol] 122 mg/dL High 70 - 100 mg/dL [facility] Work Phone: Comment on above: Test performed by gl ucose meter. Results may be 10%-15% lower than serum/plasma values. (CLIA ID [id number]) Glucose [Mass/Vol] 136 mg/dL High 70 - 100 mg/dL [facility] Comment on above: Test performed by gl ucose meter. Results may be 10%-15% lower than serum/plasma values. (CLIA ID [id number]) Interpretation and review of laboratory results Abnormal [facility] Test Performed by [facility], [address] [place], [address] LAB [facility] CBC Auto Differentialon 03-02 [...] - 10.7 10*3/uL [facility] Test Performed by [facility], [address], [place], [place] [address] [facility] LAB [facility] Glucose,Bedsideon 03-22-2021 Glucose [Mass/Vol] 134 mg/dL High 70-100 [facility] Comment on above: Result Comment: Test performed by glucose meter. Results may be 10%-15% lower than serum/plasma values. (CLIA ID [id number]) Performed By: #### H EMD, BMP3 #### [facility] [address] [place] [address] Glucose [Mass/Vol] 190 mg/dL High 70-100 [facility] Comment on above: Result Comment: Test performed by glucose meter. Results may be 10%-15% lower than serum/plasma values. (CLIA ID [id number]) Performed By: #### B GLU #### [facility] [address] [place] [address] Glucose [Mass/Vol] 200 mg/dL High 70-100 [facility] Comment on above: Result Comment: Test performed by glucose meter. Results may be 10%-15% lower than serum/plasma values. (CLIA ID [id number]) Performed By: #### B GLU #### [facility] [address] [place] [address] Glucose [Mass/Vol] 181 mg/dL High 70-100 [facility] Comment on above: Result Comment: Test performed by glucose meter. Results may be 10%-15% lower than serum/plasma values. (CLIA ID [id number]) Performed By: #### B GLU #### [facility] [address] [place] [address] Glucose [Mass/Vol] 186 mg/dL High 70-100 [facility] Comment on above: Result Comment: Test performed by glucose meter. Results may be 10%-15% lower than serum/plasma values. (CLIA ID [id number]) Performed By: #### B GLU #### [facility] [address] [place] [address] Hemoglobin A1Con 03-22-2021 Glucose [Mass/Vol] 108 mg/dL Normal [facility] Comment on above: Performed By: #### B GLU #### [facility] [address] [place] [address] HbA1c (Bld) [Mass fraction] 5.4 % Normal [facility] Comment on above: Result Comment: Norm al less than 5.7% Prediabetes 5.7% to 6.4% Diabetes 6.5% or higher --HgbA1C levels may not be accurate in patients who have renal disease, received recent blood transfusions, are anemic, or who have dyshemoglobinemia. Performed By: #### B GLU #### [facility] [address] [place] [address] HbA1c (Bld) [Mass fraction] 5.4 % [facility] Comment on above: Normal less than 5.7 % Prediabetes 5.7% to 6.4% Diabetes 6.5% or higher --HgbA1C levels may not be accurate in patients who have renal disease, received recent blood transfusions, are anemic, or who have dyshemoglobinemia. Magnesium [Mass/Vol] 108 mg/dL [facility] A Test Performed by [facility], [address] [place] [address] [facility] LAB [facility] w/ Autodiffon 03-22 Abs Baso Cnt 0.0 10*3/uL Normal 0.0-0.2 [facility] Comment on above: Performed By: #### B GLU #### [facility] [address] [place] [address] Abs Neutrophile Cnt 12.3 10*3/uL High 1.8-7.0 [facility] Comment on above: Performed By: #### B GLU #### [facility] [address] [place] [address] Basophils/100 WBC (Bld) 0.2 % Normal 0.0-2.0 [facility] Comment on above: Performed By: #### B GLU #### [facility] [address] [place] [address] Eosinophils (Bld) [#/Vol] 0.0 10*3/uL Normal 0.0-0.5 [facility] Comment on above: Performed By: #### B GLU #### [facility] [address] [place] [address] Eosinophils/100 WBC (Bld) 0.0 % Low 1.0-6.0 [facility] Comment on above: Performed By: #### B GLU #### [facility] [address] [place] [address] Erythrocyte distribution width (RBC) [Ratio] 12.8 % Normal 11.5-14.5 [facility] Comment on above: Performed By: #### B GLU #### [facility] [address] [place] [address] Granulocytes/100 WBC (Bld) 92.7 % High 40.0-80.0 [facility] Comment on above: Performed By: #### B GLU #### [facility] [address] [place] [address] Hematocrit (Bld) [Volume fraction] 35.9 % Low 40.0-52.0 [facility] Comment on above: Performed By: #### B GLU #### [facility] [address] [place] [address] Hemoglobin (Bld) [Mass/Vol] 12.4 g/dL Low 13.0-18.0 [facility] Comment on above: Performed By: #### B GLU #### [facility] [address] [place] [address] Lymphocytes (Bld) [#/Vol] 0.5 10*3/uL Low 1.0-4.3 [facility] Comment on above: Performed By: #### B GLU #### [facility] [address] [place] [address] Lymphocytes/100 WBC (Bld) 3.6 % Low 20.0-40.0 [facility] Comment on above: Performed By: #### B GLU #### [facility] [address] [place] [address] MCH (RBC) [Entitic mass] 31.6 pg Normal 26.0-34.0 [facility] Comment on above: Performed By: #### B GLU #### [facility] [address] [place] [address] MCHC 34.6 % Normal 32.0-36.0 [facility] Comment on above: Performed By: #### B GLU #### [facility] [address] [place] [address] MCV (RBC) [Entitic vol] 91.2 fL Normal 80.0-98.0 [facility] Comment on above: Performed By: #### B GLU #### [facility] [address] [place] [address] Monocytes (Bld) [#/Vol] 0.5 10*3/uL Normal 0.0-0.8 [facility] Comment on above: Performed By: #### B GLU #### [place] [address] [place] [address] Monocytes/100 WBC (Bld) 3.5 % Normal 2.0-10.0 [facility] Comment on above: Performed By: #### B GLU #### [facility] [address] [place] [address] Platelet mean volume (Bld) [Entitic vol] 9.5 fL Normal 7.4-10.4 [facility] Comment on above: Performed By: #### B GLU #### [facility] [address] [place] [address] Platelets (Bld) [#/Vol] 158 10*3/uL Normal 140-440 [facility] Comment on above: Performed By: #### B GLU #### [facility] [address] [place] [address] RBC (Bld) [#/Vol] 3.93 10*6/uL Low 4.40-5.90 [facility] Comment on above: Performed By: #### B GLU #### [facility] [address] [place] [address] WBC (Bld) [#/Vol] 13.3 10*3/uL High 3.6-10.7 [facility] Comment on above: Performed By: #### B GLU #### [facility] [address] [place] [address] MRSA by PCRon 03-22-2021 Staph Aureus Sc No S. aureus detected. Negative nasal MRSA PCR has a high negative predictive value for MRSA pneumonia. Consider stopping vancomycin if no other clinical indication. Contact Antimicrobial Stewardship for further recommendations. The analytical performance characteristics of this assay have been determined by [email or web address] in accordance with CLIA regulations. The modifications have not been cleared or approved by the U. S. Food and Drug Administration; however, the FDA has determined that such clearance or approval is not necessary. [facility] Test Per[facility] by [facility], [address] [place] [address] [facility] LAB [facility] POCT GlucoseOrdered By: Pascual Morgan on 03-22-2021 Glucose [Mass/Vol] 134 mg/dL High 70 - 100 mg/dL [facility] Work Phone: Comment on above: Test performed by gl ucose meter. Results may be 10%-15% lower than serum/plasma values. (CLIA ID [id number]) Interpretation and review of laboratory results Abnormal [facility] Work Phone: [facility] Work Phone: POCT Glucoseon 03-22-2021 Test Performed by [facility], [address] [place], [address] LAB Glucose [Mass/Vol] 190 mg/dL High 70 - 100 mg/dL [facility] Comment on above: Test performed by gl ucose meter. Results may be 10%-15% lower than serum/plasma values. (CLIA ID [id number]) Interpretation and review of laboratory results Abnormal [facility] Test Performed by [facility], [address] [place], [address] LAB [facility] Glucose [Mass/Vol] 200 mg/dL High 70 - 100 mg/dL [facility] Comment on above: Test performed by gl ucose meter. Results may be 10%-15% lower than serum/plasma values. (CLIA ID [id number]) Interpretation and review of laboratory results Abnormal [facility] Test Performed by [facility], [address] [place], [address] LAB [facility] Glucose [Mass/Vol] 181 mg/dL High 70 - 100 mg/dL [facility] Comment on above: Test performed by gl ucose meter. Results may be 10%-15% lower than serum/plasma values. (CLIA ID [id number]) Interpretation and review of laboratory results Abnormal [facility] Test Performed by [facility], [address], [address] LAB [facility] Glucose [Mass/Vol] 186 mg/dL High 70 - 100 mg/dL [facility] Comment on above: Test performed by gl ucose meter. Results may be 10%-15% lower than serum/plasma values. (CLIA ID [id number]) Interpretation and review of laboratory results Abnormal [facility] Test Performed by [facility], [address], [address] LAB [facility] Procalcitoninon 03-22-2021 Procalcitonin 0.09 ng/mL Normal 0.00-0.09 [facility] [place] [facility] Comment on above: Performed By: #### H EMDF, BMP3 #### [facility] [address] [place] [address] Interpretation See Below [facility] Comment on above: PCT <0.50 = Low risk of severe sepsis and/or septic shock. PCT >2.00 = High risk of severe sepsis and/or septic shock. Procalcitonin 0.09 ng/mL 0.00 - 0.09 ng/mL [facility] Test Performed by [facility], [address] [place] [address] [facility] LAB [facility] Staph Aureus Complete Nasalo n 03-22-2021 Staph Aureus Complete Nasal Staph Screen --> Status: F No S. aureus detected. Negative nasal MRSA PCR has a high negative predictive value for MRSA pneumonia. Consider stopping vancomycin if no other clinical indication. Contact Antimicrobial Stewardship for further recommendations. The analytical performance characteristics of this assay have been determined by [email or web address] in accordance with CLIA regulations. The modifications [...] of this assay have been determined by [email or web address] in accordance with CLJianjian regulations. The modifications have not been cleared or approved by the U. S. Food and Drug Administration; however, the FDA has determined that such clearance or approval is not necessary. Normal [facility] [email or web address] Comment on above: Performed By: #### S APCR ####[facility] [employer] [id number] [place] [address] Vancomycin Troughon 03-22-20 21 Vancomycin Trough 8.1 ug/mL Low 15.0-20.0 [facility] [employer] [facility] Comment on above: Result Comment: . Performed By: #### B GLU #### [facility] [address] [place] [address] Vancomycin, Troughon 021 Interpretation and review of laboratory results Abnormal [facility] Vancomycin Tr 8.1 ug/mL Low 15.0 - 20.0 ug/mL [facility] Comment on above: . Test Performed by [facility], [address] [place] [address] [facility] Basic Metabolic Panelon 11-2 Anion gap [Moles/Vol] 7 mmol/L Normal 3-13 [facility] Comment on above: Performed By: #### H EMDF, BMP3 #### [facility] [address] [place] [address] Calcium [Mass/Vol] 8.1 mg/dL Low 8.4-10.4 [facility] Comment on above: Performed By: #### H EMDF, BMP3 #### [facility] [address] [place] [address] CO2 [Moles/Vol] 26 mmol/L Normal 22-30 [facility] System Comment on above: Performed By: #### H EMDF, BMP3 #### [facility] [address] [place] [address] Glucose [Mass/Vol] 156 mg/dL High 70-100 [facility] Comment on above: Performed By: #### H EMDF, BMP3 #### [facility] [address] [place] [address] Urea nitrogen [Mass/Vol] 19 mg/dL High 7-17 [facility] Comment on above: Performed By: #### H EMDF, BMP3 #### [facility] [address] [place] [address] Creatinine [Mass/Vol] 0.53 mg/dL Normal 0.52-1.25 [facility] Comment on above: Performed By: #### H EMDF, BMP3 #### [facility] [address] [place] [address] eGFR OTHER > 90.0 Normal >60 [facility] Comment on above: Result Comment: KDIG O [...] Performed By: #### H MAYKEL BMP3 #### [facility] [address] [place] [address] GFR/1.73 sq M.predicted among blacks MDRD (S/P/Bld) [Vol rate/Area] mL/min/{1.73_m2} Normal >60 [facility] Comment on above: Performed By: #### H MAYKEL BMP3 #### [facility] [address] [place] [address] Chloride [Moles/Vol] 103 mmol/L Normal 98-107 [facility] Comment on above: Performed By: #### H MAYKEL BMP3 #### [facility] [address] [place] [address] Potassium [Moles/Vol] 3.4 mmol/L Low 3.5-5.1 [facility] Comment on above: Performed By: #### H MAYKEL BMP3 #### [facility] [address] [place] [address] Sodium [Moles/Vol] 136 mmol/L Normal 135-145 [facility] Comment on above: Performed By: #### H MAYKEL BMP3 #### [facility] [address] [place] [address] Basic Metabolic Panel w/ Ref marciano to MGon 03-21-2021 Anion gap [Moles/Vol] 7 mmol/L 3 - 13 mmol/L [facility] Work Phone: Calcium [Mass/Vol] 8.1 mg/dL Low 8.4 - 10. 4 mg/dL [facility] Work Phone: Chloride [Moles/Vol] 103 mmol/L 98 - 10 7 mmol/L [facility] Work Phone: CO2 [Moles/Vol] 26 mmol/L 22 - 30 mmol/L [employer] Work Phone: Creatinine [Mass/Vol] 0.53 mg/dL 0.52 - 1.25 mg/dL [employer] Work Phone: EGFR IF NonAfrican Niuean >90.0 >60 mL/min [employer] Work Phone: Comment on above: KDIGO [...] serum creatinine in children is the Bedside Noirega equation. It is less accurate in patients with extremes of muscle mass, restriction of dietary protein, ingestion of creatine, extra-renal metabolism of creatinine, or treatment with medications that affect renal tubular creatinine secretion. GFR/1.73 sq M.predicted among blacks MDRD (S/P/Bld) [Vol rate/Area] mL/min/{1.73_m2} >60 mL/min [employer] Work Phone: Glucose [Mass/Vol] 156 mg/dL High 70 - 100 mg/dL [employer] Work Phone: Interpretation and review of laboratory results Abnormal [employer] Work Phone: Potassium [Moles/Vol] 3.4 mmol/L Low 3.5 - 5.1 mmol/L [employer] Work Phone: Sodium [Moles/Vol] 136 mmol/L 135 - 145 mmol/L [employer] Work Phone: Urea nitrogen (BldV) [Mass/Vol] 19 mg/dL High 7 - 17 mg/dL [employer] Work Phone: Test Performed by [facility], [address], [place], [place] [address] [facility] Work Phone: CBCon 03-21-2021 Hematocrit (Bld) [Volume fraction] 35.4 % Low 40.0 - 52.0 % [facility] Work Phone: Hemoglobin.gastrointest inal spec 1 Ql (Stl) 11.9 g/dL Low 13.0 - 18.0 g/dL [facility] Work Phone: Interpretation and review of laboratory results Abnormal [facility] Work Phone: MCH (RBC) [Entitic mass] 30.5 pg 26.0 - 34.0 pg [facility] Work Phone: MCHC (RBC) [Mass/Vol] 33.7 % 32.0 - 36.0 % [facility] Work Phone: MCV (RBC) [Entitic vol] 90.6 fL 80.0 - 98.0 fL [facility] Work Phone: Platelet distribution width (Bld) [Ratio] 13.1 % 11.5 - 14.5 % [facility] Work Phone: Platelet mean volume (Bld) [Entitic vol] 9.1 fL 7.4 - 10.4 fL [facility] Work Phone: Platelets (Bld) [#/Vol] 136 10*3/uL Low 140 - 440 10*3/uL [facility] Work Phone: RBC (Bld) [#/Vol] 3.91 10*6/uL Low 4.40 - 5.9 0 10*6/uL [facility] Work Phone: WBC (Bld) [#/Vol] 7.1 10*3/uL 3.6 - 10.7 10*3/uL [facility] Work Phone: Test Performed by [facility], [address] [place], [place] [address] [facility] Work Phone: Glucose,Bedsideon 03-21-2021 Glucose [Mass/Vol] 131 mg/dL High 70-100 [facility] Comment on above: Result Comment: Test performed by glucose meter. Results may be 10%-15% lower than serum/plasma values. (CLIA ID [id number]) Performed By: #### B GLU #### [facility] [address] [place] [address] Glucose [Mass/Vol] 230 mg/dL High 70-100 [facility] Comment on above: Result Comment: Test performed by glucose meter. Results may be 10%-15% lower than serum/plasma values. (CLIA ID [id number]) Performed By: #### B GLU #### [facility] [address] [place] [address] Hemogramon 03-21-2021 Erythrocyte distribution width (RBC) [Ratio] 13.1 % Normal 11.5-14.5 [facility] Comment on above: Performed By: #### H MAYKEL BMP3 #### [facility] [address] [place] [address] Hematocrit (Bld) [Volume fraction] 35.4 % Low 40.0-52.0 [facility] Comment on above: Performed By: #### H MAYKEL BMP3 #### [facility] [address] [place] [address] Hemoglobin (Bld) [Mass/Vol] 11.9 g/dL Low 13.0-18.0 [facility] Comment on above: Performed By: #### H MAYKEL BMP3 #### [facility] [address] [place] [address] MCH (RBC) [Entitic mass] 30.5 pg Normal 26.0-34.0 [facility] Comment on above: Performed By: #### H MAYKEL BMP3 #### [facility] [address] [place] [address] MCHC 33.7 % Normal 32.0-36.0 [facility] Comment on above: Performed By: #### H EMDF, BMP3 #### [place] [address] [place] [address] MCV (RBC) [Entitic vol] 90.6 fL Normal 80.0-98.0 [facility] Comment on above: Performed By: #### H MAYKEL BMP3 #### [facility] [address] [place] [address] Platelet mean volume (Bld) [Entitic vol] 9.1 fL Normal 7.4-10.4 [facility] Comment on above: Performed By: #### H MAYKEL BMP3 #### [facility] [address] [place] [address] Platelets (Bld) [#/Vol] 136 10*3/uL Low 140-440 [facility] Comment on above: Performed By: #### H MAYKEL BMP3 #### [facility] [address] [place] [address] RBC (Bld) [#/Vol] 3.91 10*6/uL Low 4.40-5.90 [facility] Comment on above: Performed By: #### Kerri BRAR BMP3 #### [facility] [address] [place] [address] WBC (Bld) [#/Vol] 7.1 10*3/uL Normal 3.6-10.7 [facility] Comment on above: Performed By: #### Kerri BRAR BMP3 #### [facility] [address] [place] [address] Magnesiumon 03-21-2021 Magnesium [Mass/Vol] 2.2 mg/dL Normal 1.6-2.3 [facility] Comment on above: Performed By: #### H MAYKEL BMP3 #### [facility] [address] [place] [address] Magnesium [Mass/Vol] 2.2 mg/dL 1.6 - 2 .3 mg/dL [facility] Work Phone: Test Performed by [facility], [address] [place], [place] [address] [facility] Work Phone: POCT Glucoseon 03-21-2021 Glucose [Mass/Vol] 131 mg/dL High 70 - 100 mg/dL [facility] Comment on above: Test performed by gl ucose meter. Results may be 10%-15% lower than serum/plasma values. (CLIA ID [id number]) Interpretation and review of laboratory results Abnormal [facility] Test Performed by [facility], [address] [place] [address] [facility] Glucose [Mass/Vol] 230 mg/dL High 70 - 100 mg/dL [facility] Comment on above: Test performed by gl ucose meter. Results may be 10%-15% lower than serum/plasma values. (CLIA ID [id number]) Interpretation and review of laboratory results Abnormal [facility] Test Performed by [facility], [address] [place], [place] [address] [facility] Procalcitoninon 03-21-2021 Interpretation See Below Normal [facility] Comment on above: Result Comment: PCT <0.50 = Low risk of severe sepsis and/or septic shock. PCT >2.00 = High risk of severe sepsis and/or septic shock. Performed By: #### H EMDF BMP3 #### [facility] [address] [place] [address] Basic Metabolic Panelon 112 Calcium [Mass/Vol] 8.4 mg/dL Normal 8.4-10.4 [facility] Comment on above: Performed By: #### H EMDF, BMP3 #### [facility] [address] [place] [address] Anion gap [Moles/Vol] 6 mmol/L Normal 3-13 [facility] Comment on above: Performed By: #### H EMDF BMP3 #### [facility] [address] [place] [address] CO2 [Moles/Vol] 27 mmol/L Normal 22-30 [facility] Comment on above: Performed By: #### H EMDF, BMP3 #### [facility] [address] [place] [address] Glucose [Mass/Vol] 106 mg/dL High 70-100 [facility] Comment on above: Performed By: #### H EMDF BMP3 #### [facility] [address] [place] [address] Urea nitrogen [Mass/Vol] 14 mg/dL Normal 7-17 [facility] Comment on above: Performed By: #### H MAYKEL BMP3 #### [facility] [address] [place] [address] Creatinine [Mass/Vol] 0.51 mg/dL Low 0.52-1.25 [facility] Comment on above: Performed By: #### H MAYKEL BMP3 #### [facility] [address] [place] [address] eGFR OTHER > 90.0 Normal >60 [facility] Comment on above: Result Comment: KDIG O [...] Performed By: #### H MAYKEL BMP3 #### [facility] [address] [place] [address] GFR/1.73 sq M.predicted among blacks MDRD (S/P/Bld) [Vol rate/Area] mL/min/{1.73_m2} Normal >60 [facility] Comment on above: Performed By: #### H MAYKEL BMP3 #### [facility] [address] [place] [address] Chloride [Moles/Vol] 104 mmol/L Normal 98-107 [facility] Comment on above: Performed By: #### H MAYKEL BMP3 #### [facility] [address] [place] [address] Potassium [Moles/Vol] 3.9 mmol/L Normal 3.5-5.1 [facility] Comment on above: Performed By: #### H EMDF, BMP3 #### [facility] [address] [place] [address] Sodium [Moles/Vol] 137 mmol/L Normal 135-145 [facility] Comment on above: Performed By: #### H EMDF, BMP3 #### [facility] [address] [place] [address] Anion gap [Moles/Vol] 6 mmol/L 3 - 13 mmol/L [facility] Work Phone: Calcium [Mass/Vol] 8.4 mg/dL 8.4 - 10. 4 mg/dL [facility] Work Phone: Chloride [Moles/Vol] 104 mmol/L 98 - 10 7 mmol/L [facility] Work Phone: CO2 [Moles/Vol] 27 mmol/L 22 - 30 mmol/L [facility] Work Phone: Creatinine [Mass/Vol] 0.51 mg/dL Low 0.52 - 1.25 mg/dL [facility] Work Phone: EGFR IF NonAfrican Niuean >90.0 >60 mL/min [facility] Work Phone: Comment on above: KDIGO [...] [Vol rate/Area] mL/min/{1.73_m2} >60 mL/min [facility] Work Phone: Glucose [Mass/Vol] 106 mg/dL High 70 - 100 mg/dL [facility] Work Phone: Interpretation and review of laboratory results Abnormal [facility] Work Phone: [phone] Potassium [Moles/Vol] 3.9 mmol/L 3.5 - 5.1 mmol/L [facility] Work Phone: [phone] Sodium [Moles/Vol] 137 mmol/L 135 - 145 mmol/L [facility] Work Phone: Urea nitrogen (BldV) [Mass/Vol] 14 mg/dL 7 - 17 mg/dL [facility] Work Phone: Test Performed by [facility], [facility] [address] [place], [place] [id number] [place] [address] LAB [facility] Work Phone: [phone] C-Reactive Proteinon 021 CRP [Mass/Vol] 228.1 mg/L High 0.0-9.9 [facility] Comment on above: Result Comment: . Performed By: #### H EMD, BMP3 #### [place] [address] [place] [address] CRP [Mass/Vol] 228.1 mg/L High 0.0 - 9.9 mg/L [facility] Work Phone: [phone] Comment on above: . Interpretation and review of laboratory results Abnormal [facility] Work Phone: [phone] Test Performed by [facility], [address] [place] [address] [place], [place] [id number] [place] [address] LAB [facility] Work Phone: COVID and Resp PCR Panelon 05-20-2020 SARS-CoV-2 (COVID-19) RNA SHIRLEY+probe Ql (Unsp spec) COVID and Resp PCR Panel --> Status: F POSITIVE: Respiratory Syncytial Virus DETECTED. _ Expected Result: Not Detected [employer] [employer] Upper Respiratory Pathogens PCR Panel can detect the following targets: SARS-CoV-2, Adenovirus, Coronavirus 229E, Coronavirus HKU1, Coronavirus NL63, Coronavirus OC43, Human Metapneumovirus, Human Rhinovirus/Enteroviru s, Influenza A, Influenza B, Parainfluenza Virus 1, Parainfluenza Virus 2, Parainfluenza Virus 3, Parainfluenza Virus 4, Respiratory Syncytial Virus, Bordetella pertussis, Bordetella parapertussis, Chlamydia pneumoniae, Mycoplasma pneumoniae. Method: Real-time PCR. _ Expected Result: Not Detected [employer] Upper Respiratory Pathogens PCR Panel can detect the following targets: SARS-CoV-2, Adenovirus, Coronavirus 229E, Coronavirus HKU1, Coronavirus NL63, Coronavirus OC43, Human Metapneumovirus, Human Rhinovirus/Enteroviru s, Influenza A, Influenza B, Parainfluenza Virus 1, Parainfluenza Virus 2, Parainfluenza Virus 3, Parainfluenza Virus 4, Respiratory Syncytial Virus, Bordetella pertussis, Bordetella parapertussis, Chlamydia pneumoniae, Mycoplasma pneumoniae. Method: Real-time PCR. Abnormal [facility] Comment on above: Performed By: #### B FRP2 #### [facility] [address] [place] [id number] EKG 12 Lead - Chest Painon 1 05-20-2020 [facility] Test Date: 2021-03-19 Pat Name: KATHYA HOOPER Department: 1 Room: 465 Gender: M Director Speech And Hearing: SHAILA : 1955 Requested By: BRADY DESAI Order Number: [id number] Reading MD: Fei Menjivar Measurements Intervals [place] Rate: 102 P: 71 RI: 172 QRS: -30 QRSD: 156 T: 85 QT: 412 QTc: 537 Interpretive Statements SINUS TACHYCARDIA LEFT BUNDLE BRANCH BLOCK Electronically Signed On 03-20-2021 22:47:41 EST by Fei Menjivar [facility] Tiara, Fei Cotto MD - 03/20/2021 [facility] Test Date: 2021-03-19 Pat Name: KATHYA HOOPER Department: 1 Room: 465 Gender: M Director Speech And Hearing: SHAILA : 1955 Requested By: BRADY DESAI Order Number: [id number] Reading MD: Fei Menjivar Measurements Intervals [place] Rate: 102 P: 71 RI: 172 QRS: -30 QRSD: 156 T: 85 QT: 412 QTc: 537 Interpretive Statements SINUS TACHYCARDIA LEFT BUNDLE BRANCH BLOCK Electronically Signed On 03-20-2021 22:47:41 EST by Fei Menjivar [employer] Work Phone: EKG 12 Lead - Chest PainOrde red By: Fei Menjivar on 03-20-2021 [employer] Work Phone: Lactic Acidon 03-20-2021 Lactate [Moles/Vol] 0.7 mmol/L Normal 0.7-2.0 [facility] Comment on above: Performed By: #### H EMDF, BMP3 #### [facility] [address] [place] [address] Lactic Acid, Plasmaon 2020 Lactate [Moles/Vol] 0.7 mmol/L 0.7 - 2. 0 mmol/L [employer] Work Phone: Test Performed by [facility], [address] [place], [place] [id number] [place] [address] LAB [facility] Work Phone: PROCALCITONINon 03-20-2021 Interpretation See Below [employer] Work Phone: Comment on above: PCT <0.50 = Low risk of severe sepsis and/or septic shock. PCT >2.00 = High risk of severe sepsis and/or septic shock. Interpretation and review of laboratory results Abnormal [facility] Work Phone: Test Performed by [facility], [address] [place] [id number] [place] [address] LAB [facility] Work Phone: Procalcitoninon 03-20-2021 Procalcitonin 0.14 ng/mL High 0.00-0.09 [facility] Work Phone: Comment on above: Performed By: #### H EMDF, BMP3 #### [facility] [address] [facility] [place] [address] Interpretation See Below Normal [facility] Comment on above: Result Comment: PCT <0.50 = Low risk of severe sepsis and/or septic shock. PCT >2.00 = High risk of severe sepsis and/or septic shock. Performed By: #### H MAYKEL BMP3 #### [facility] [address] [place] [address] Troponinon 03-20-2021 Interpretation and review of laboratory results Abnormal [facility] Work Phone: Troponin I.cardiac [Mass/Vol] 0.037 ng/mL High 0.000 - 0.034 ng/mL [facility] Work Phone: Comment on above: . Test Performed by [place] [address] [place], [place] [address] [facility] Work Phone: Troponin Ion 03-20-2021 Troponin I.cardiac [Mass/Vol] 0.037 ng/mL High 0.000-0.034 [facility] Comment on above: Result Comment: . Performed By: #### H KORIN BRAR3 #### [place] [address] [place] [address] Arterial Blood Gas Respirato yasmine 03-19-2021 Base Excess 1.2 mmol/L Normal -3.0-3.0 [facility] Comment on above: Performed By: #### B GLU #### [place] [address] [place] [address] CO2 [Moles/Vol] 25.6 mmol/L Normal 23.0-27.0 [facility] Comment on above: Performed By: #### B GLU #### [place] [address] [facility] [place] [address] FIO2 5 Normal [facility] Comment on above: Result Comment: Perf ormed by KEE ID: [id number] [place], [place] Performed By: #### B GLU #### [facility] [address] [facility] [place] [address] HCO3 (Bld) [Moles/Vol] 24.6 mmol/L Normal 21.0-25.0 [facility] Comment on above: Performed By: #### B GLU #### [facility] [address] [place] [address] Oxygen (Bld) [Partial pressure] 56.7 mm[Hg] Low 80.0-100.0 [facility] Comment on above: Performed By: #### B GLU #### [facility] [address] [place] [address] Oxygen saturation in Blood 91.0 % Low 95.0-100.0 [facility] Comment on above: Performed By: #### B GLU #### [facility] [address] [place] [address] pCO2 33.9 mm[Hg] Low 35.0-45.0 [facility] Comment on above: Performed By: #### B GLU #### [facility] [address] [place] [address] pH 7.468 High 7.350-7.450 [facility] Comment on above: Performed By: #### B GLU #### [facility] [address] [place] [address] Basic Metabolic Panelon 11-1 -2020 Anion gap [Moles/Vol] 9 mmol/L Normal 3-13 [facility] Comment on above: Performed By: #### B MP3, TROPN ####[facility] [place] [address] Calcium [Mass/Vol] 8.5 mg/dL Normal 8.4-10.4 [facility] Comment on above: Performed By: #### Anamika MP3, TROPN ####[facility] [place] [address] CO2 [Moles/Vol] 26 mmol/L Normal 22-30 [facility] Comment on above: Performed By: #### B MP3, TROPN ####[facility] [place] [address] Creatinine [Mass/Vol] 0.48 mg/dL Low 0.52-1.25 [facility] Comment on above: Performed By: #### B MP3, TROPN ####[facility] [place] [address] eGFR OTHER > 90.0 Normal >60 [facility] Comment on above: Result Comment: KDIG O [...] renal tubular creatinine secretion. Performed By: #### B MP3, TROPN ####[place] [address] [place] [address] GFR/1.73 sq M.predicted among blacks MDRD (S/P/Bld) [Vol rate/Area] mL/min/{1.73_m2} Normal >60 [facility] Comment on above: Performed By: #### B MP3, TROPN ####[place] [address] [place] [address] Glucose [Mass/Vol] 132 mg/dL High 70-100 [facility] Comment on above: Performed By: #### B MP3, TROPN ####[facility] [place] [address] Urea nitrogen [Mass/Vol] 16 mg/dL Normal 7-17 [facility] Comment on above: Performed By: #### B MP3, TROPN ####[facility] [place] [address] Chloride [Moles/Vol] 102 mmol/L Normal 98-107 [facility] Comment on above: Performed By: #### B MP3, TROPN ####[place] [address] [place] [address] Potassium [Moles/Vol] 4.1 mmol/L Normal 3.5-5.1 [facility] Comment on above: Performed By: #### B MP3, TROPN ####[facility] [place] [facility] [address] Sodium [Moles/Vol] 137 mmol/L Normal 135-145 [facility] Comment on above: Performed By: #### B MP3, TROPN ####[facility] [place] [address] Anion gap [Moles/Vol] 9 mmol/L 3 - 13 mmol/L [facility] Calcium [Mass/Vol] 8.5 mg/dL 8.4 - 10. 4 mg/dL [facility] Chloride [Moles/Vol] 102 mmol/L 98 - 10 7 mmol/L [facility] CO2 [Moles/Vol] 26 mmol/L 22 - 30 mmol/L [facility] Creatinine [Mass/Vol] 0.48 mg/dL Low 0.52 - 1.25 mg/dL [facility] EGFR IF NonAfrican Niuean >90.0 >60 mL/min [facility] Comment on above: KDIGO guidelines pro vide [...] - 17 mg/dL [facility] Test Performed by [facility], [address], [address] LAB [facility] CBC Auto Differentialon 03-01 Absolute Baso [...] Real-time, RT-PCR This assay was developed by [employer] and distributed under an Emergency Use Authorization (EUA) granted by the FDA for the qualitative detection of nucleic acids from SARS-CoV-2, Influenza A, Influenza B, and Respiratory Syncytial Virus. Provider and patient fact sheets can be found at https://www.fda.gov/m edia/372994/download and https://www.fda.gov/m edia/762665/download. Abnormal [facility] SARS-CoV-2 (COVID-19) RNA SHIRLEY+probe Ql (Unsp spec) Not detected [facility] Test Performed by [facility], [address] LAB [facility] CR Chest Portableon 03-19-20 21 CR Chest Portable Patient Name: KATHYA HOOPER Diagnostic Radiology ACCESSION EXAM DATE/TIME PROCEDURE ORDERING PROVIDER [id number] 03/19/2021 17:10 EST CR Chest Portable [id number] -BRADY DESAI CPT code 47352 Reason For Exam (CR Chest Portable) hypoxia [...] Transcribed Date and Time: 03/19/2021 5:22 Normal [facility] ED Provider Noteon ED Provider Note Emergency Department Encounter [facility] ED Patient: Kathya Hooper : 1955 Date of Evaluation: 03/19/2021 ED Provider: Brady Desai DO Chief Complaint Chief Complaint Patient presents with ? Shortness of Breath [place] I wore appropriate PPE for the entirety [...] otherwise acutely negative except as in the [place]. Past History Past Medical History: Diagnosis Date [...] and Family: Not on file ? Attends Alevism Services: Not on file ? Active Member [...] TABLET T (more content not included)... Normal [facility] Hemogram w/ Autodiffon 03-19 Abs Baso Cnt 0.1 10*3/uL Normal 0.0-0.2 [facility] [place] [facility] Comment on above: Performed By: #### B GLU #### [facility] [address] [place] [address] Abs Neutrophile Cnt 7.2 10*3/uL High 1.8-7.0 [facility] Comment on above: Performed By: #### B GLU #### [facility] [address] [place] [address] Basophils/100 WBC (Bld) 0.6 % Normal 0.0-2.0 [facility] Comment on above: Performed By: #### B GLU #### [facility] [address] [place] [address] Eosinophils (Bld) [#/Vol] 0.0 10*3/uL Normal 0.0-0.5 [facility] Comment on above: Performed By: #### B GLU #### [facility] [address] [place] [address] Eosinophils/100 WBC (Bld) 0.2 % Low 1.0-6.0 [facility] Comment on above: Performed By: #### B GLU #### [facility] [address] [place] [address] Erythrocyte distribution width (RBC) [Ratio] 13.0 % Normal 11.5-14.5 [facility] Comment on above: Performed By: #### B GLU #### [facility] [address] [place] [address] Granulocytes/100 WBC (Bld) 79.0 % Normal 40.0-80.0 [facility] Comment on above: Performed By: #### B GLU #### [facility] [address] [place] [address] Hematocrit (Bld) [Volume fraction] 38.5 % Low 40.0-52.0 [facility] Comment on above: Performed By: #### B GLU #### [facility] [address] [place] [address] Hemoglobin (Bld) [Mass/Vol] 13.1 g/dL Normal 13.0-18.0 [facility] Comment on above: Performed By: #### B GLU #### [facility] [address] [place] [address] Lymphocytes (Bld) [#/Vol] 1.0 10*3/uL Normal 1.0-4.3 [facility] Comment on above: Performed By: #### B GLU #### [facility] [address] [place] [address] Lymphocytes/100 WBC (Bld) 10.8 % Low 20.0-40.0 [facility] Comment on above: Performed By: #### B GLU #### [facility] [address] [place] [address] MCH (RBC) [Entitic mass] 30.9 pg Normal 26.0-34.0 [facility] Comment on above: Performed By: #### B GLU #### [facility] [address] [place] [address] MCHC 33.9 % Normal 32.0-36.0 [facility] Comment on above: Performed By: #### B GLU #### [facility] [address] [place] [address] MCV (RBC) [Entitic vol] 91.1 fL Normal 80.0-98.0 [facility] Comment on above: Performed By: #### B GLU #### [facility] [address] [place] [address] Monocytes (Bld) [#/Vol] 0.9 10*3/uL High 0.0-0.8 [facility] Comment on above: Performed By: #### B GLU #### [place] [address] [place] [address] Monocytes/100 WBC (Bld) 9.4 % Normal 2.0-10.0 [facility] Comment on above: Performed By: #### B GLU #### [place] [address] [place] [address] Platelet mean volume (Bld) [Entitic vol] 9.9 fL Normal 7.4-10.4 [facility] Comment on above: Performed By: #### B GLU #### [place] [address] [place] [address] Platelets (Bld) [#/Vol] 163 10*3/uL Normal 140-440 [facility] Comment on above: Performed By: #### B GLU #### [place] [address] [place] [address] RBC (Bld) [#/Vol] 4.23 10*6/uL Low 4.40-5.90 [facility] Comment on above: Performed By: #### B GLU #### [facility] [address] [place] [address] WBC (Bld) [#/Vol] 9.1 10*3/uL Normal 3.6-10.7 [facility] Comment on above: Performed By: #### B GLU #### [facility] [address] [place] [address] Lactic Acidon 03-19-2021 Lactate [Moles/Vol] 2.3 mmol/L Critically high 0.7-2.0 [facility] Comment on above: Performed By: #### L ACT3 ####[facility] [place] [address] Lactic Acid, Plasmaon 2020 Lactate [Moles/Vol] 2.3 mmol/L Critically high 0.7 - 2.0 mmol/L [facility] No Panel Informationon 03-19 Interpretation and review of laboratory results Abnormal [facility] Test Performed by [facility], [address] [place], [place] [id number] [place] [address] [facility] RBC MORPHOLOGYon 03-19-2021 Poikilocytes Slight [facility] RBC (Bld) [#/Vol] ABNORMAL [facility] Tear Drop Cells Slight [facility] RBC Morphologyon 03-19-2021 Ovalocytes Slight Normal [facility] Comment on above: Performed By: #### B GLU #### [facility] [address] [place] [address] Poikilocytosis Slight Normal [facility] Comment on above: Performed By: #### B GLU #### [facility] [address] [place] [address] Polychromasia Slight Normal [facility] Comment on above: Performed By: #### B GLU #### [facility] [address] [place] [address] RBC morphology finding Nom (Bld) ABNORMAL Normal [facility] Comment on above: Performed By: #### B GLU #### [facility] [address] [place] [address] Tear Drop Forms Slight Normal [facility] Comment on above: Performed By: #### B GLU #### [facility] [address] [place] [address] Respiratory Panel, Molecular , with COVID-19 (Restricted: peds pts or suitable admitted adults)on 03-19-2021 Interpretation and review of laboratory results Abnormal [facility] Respiratory Panel Molecular, with COVID POSITIVE: Respiratory Syncytial Virus DETECTED. _ Expected Result: Not Detected [facility] Ince Upper Respiratory Pathogens PCR Panel can detect the following targets: SARS-CoV-2, Adenovirus, Coronavirus 229E, Coronavirus HKU1, Coronavirus NL63, Coronavirus OC43, Human Metapneumovirus, Human Rhinovirus/Enteroviru s, Influenza A, Influenza B, Parainfluenza Virus 1, Parainfluenza Virus 2, Parainfluenza Virus 3, Parainfluenza Virus 4, Respiratory Syncytial Virus, Bordetella pertussis, Bordetella parapertussis, Chlamydia pneumoniae, Mycoplasma pneumoniae. Method: Real-time PCR. Abnormal [facility] Test Performed by [facility], [address] [place] [address] [place] [address] [facility] SARS-CoV-2, Flu A/B and RSVo n 03-19-2021 SARS-CoV-2 (COVID-19) RNA SHIRLEY+probe Ql (Unsp spec) SARS-CoV-2 --> Status: F Not Detected. Flu A PCR --> Status: F Not Detected. Flu B PCR --> Status: F Not Detected. RSV PCR --> Status: F DETECTED Expected Result: Not Detected _ Method: Real-time, RT-PCR This assay was developed by [employer] and distributed under an Emergency Use Authorization (EUA) granted by the FDA for the qualitative detection of nucleic acids from SARS-CoV-2, Influenza A, Influenza B, and Respiratory Syncytial Virus. Provider and patient fact sheets can be found at https://www.fda.gov/m edia/158218/download and https://www.fda.gov/m edia/526496/download. Expected Result: Not Detected _ Method: Real-time, RT-PCR This assay was developed by [employer] and distributed under an Emergency Use Authorization (EUA) granted by the FDA for the qualitative detection of nucleic acids from SARS-CoV-2, Influenza A, Influenza B, and Respiratory Syncytial Virus. Provider and patient fact sheets can be found at https://www.fda.gov/m edia/665864/download and https://www.fda.gov/m edia/985716/download. Abnormal [facility] Comment on above: Performed By: #### C VFLR #### [facility] [address] [place] [address] , [address] Troponinon 03-19-2021 Troponin I.cardiac [Mass/Vol] 0.017 ng/mL 0.000 - 0.034 ng/mL [facility] Comment on above: . Test Performed by [facility], [address] [place], [place] [address] [facility] Troponin Ion 03-19-2021 Troponin I.cardiac [Mass/Vol] 0.017 ng/mL Normal 0.000-0.034 [facility] Comment on above: Result Comment: . Performed By: #### B MP3, TROPN ####[facility] [place] [address] XR CHEST PORTABLEon 03-19-20 Patient Name: KATHYA HOOPER Diagnostic Radiology ACCESSION EXAM DATE/TIME PROCEDURE ORDERING PROVIDER [id number] 03/19/2021 17:10 EST CR Chest Portable [id number] -NESHEIM, BRADY CPT code 22752 Reason For Exam (CR Chest Portable) hypoxia [...] J Transcribed Date and Time: 03/19/2021 5:22 [facility] Keshawn Simpson MD - 03/19/2021 Patient Name: KATHYA HOOPER Diagnostic Radiology ACCESSION EXAM DATE/TIME PROCEDURE ORDERING PROVIDER [id number] 03/19/2021 17:10 EST CR Chest Portable [id number] -NESHEIM, BRADY CPT code 67485 Reason For Exam (CR Chest Portable) hypoxia [...] J Transcribed Date and Time: 03/19/2021 5:22 [facility] Work Phone: Radiology Study observation (narrative) [facility] Work Phone: XR CHEST PORTABLEOrdered By: Keshawn Simpson on 03-19-2021 [facility] Work Phone: Basic Metabolic Panelon 03-01 Calcium [Mass/Vol] 8.4 mg/dL Normal 8.4-10.4 [facility] Comment on above: Performed By: #### H EMDF, BMP3 #### [facility] [address] [place] [address] Glucose [Mass/Vol] 110 mg/dL High 70-100 [facility] Comment on above: Performed By: #### H EMDF, BMP3 #### [facility] [address] [place] [address] Anion gap [Moles/Vol] 7 mmol/L Normal 3-13 [facility] Comment on above: Performed By: #### H EMDF, BMP3 #### [facility] [address] [place] [address] CO2 [Moles/Vol] 26 mmol/L Normal 22-30 [facility] Comment on above: Performed By: #### H EMDF, BMP3 #### [facility] [address] [place] [address] Creatinine [Mass/Vol] 0.54 mg/dL Normal 0.52-1.25 [facility] Comment on above: Performed By: #### H EMDF, BMP3 #### [facility] [address] [place] [address] eGFR OTHER > 90.0 Normal >60 [facility] Comment on above: Result Comment: KDIG O [...] Performed By: #### H MAYKEL BMP3 #### [facility] [address] [place] [address] GFR/1.73 sq M.predicted among blacks MDRD (S/P/Bld) [Vol rate/Area] mL/min/{1.73_m2} Normal >60 [facility] Comment on above: Performed By: #### H MAYKEL BMP3 #### [facility] [address] [place] [address] Urea nitrogen [Mass/Vol] 18 mg/dL High 7-17 [facility] Comment on above: Performed By: #### H MAYKEL BMP3 #### [facility] [address] [place] [address] Potassium [Moles/Vol] 3.9 mmol/L Normal 3.5-5.1 [facility] Comment on above: Performed By: #### H MAYKEL BMP3 #### [facility] [address] [place] [address] Chloride [Moles/Vol] 104 mmol/L Normal 98-107 [facility] Comment on above: Performed By: #### H MAYKEL BMP3 #### [facility] [address] [place] [address] Sodium [Moles/Vol] 137 mmol/L Normal 135-145 [facility] Comment on above: Performed By: #### H MAYKEL BMP3 #### [facility] [address] [place] [address] Anion gap [Moles/Vol] 7 mmol/L 3 - 13 mmol/L [facility] Calcium [Mass/Vol] 8.4 mg/dL 8.4 - 10. 4 mg/dL [facility] Chloride [Moles/Vol] 104 mmol/L 98 - 10 7 mmol/L [facility] CO2 [Moles/Vol] 26 mmol/L 22 - 30 mmol/L [facility] Creatinine [Mass/Vol] 0.54 mg/dL 0.52 - 1.25 mg/dL [facility] EGFR IF NonAfrican Niuean >90.0 >60 mL/min [facility] Comment on above: [...] 710 pg/mL High 0 - 125 pg/mL [facility] Test Performed by [facility], [address] [place], [place] [address] [facility] CBC Auto Differentialon 03-01 Absolute Baso # [...] g/dL 13.0 - 18.0 g/dL [facility] Interpretation and review of laboratory results [...] - 10.7 10*3/uL [facility] Test Performed by [facility], [facility] [address] LAB [facility] COVID-19, Flu A/B, and RSV C omboon 03-18-2021 Influenza A by PCR Not detected [facility] A Influenza B by PCR Not detected [facility] A Interpretation and review of laboratory results Abnormal [facility] RSV PCR DETECTED Expected Result: Not Detected _ Method: Real-time, RT-PCR This assay was developed by [employer] and distributed under an Emergency Use Authorization (EUA) granted by the FDA for the qualitative detection of nucleic acids from SARS-CoV-2, Influenza A, Influenza B, and Respiratory Syncytial Virus. Provider and patient fact sheets can be found at https://www.fda.gov/m edia/500302/download and https://www.fda.gov/m edia/214924/download. Abnormal [facility] SARS-CoV-2 (COVID-19) RNA SHIRLEY+probe Ql (Unsp spec) Not detected [facility] Test Performed by [facility], [facility] [address] [facility] Chest Portableon 03-18-20 21 CR Chest Portable Patient Name: KATHYA HOOPER Diagnostic Radiology ACCESSION EXAM DATE/TIME PROCEDURE ORDERING PROVIDER [id number] 03/18/2021 15:30 EST CR Chest Portable [id number] BOO CASTRO CPT code 38992 Reason For Exam (CR Chest Portable) sob, [...] KRIKOR Transcribed Date and Time: 03/18/2021 3:35 [facility] CTA Chest W WO (PE study)on 03-18-2021 Patient Name: KATHYA HOOPER Computed Tomography ACCESSION EXAM DATE/TIME PROCEDURE ORDERING PROVIDER [id number] 03/18/2021 16:27 EST CTA Chest w/ + w/o [id number] -CASTRO, Contrast BOO CPT code 29687 Q9967 Reason For Exam (CTA Chest w/ [...] MALAY Transcribed Date and Time: 03/18/2021 4:36 [facility] Malcolm Michaels MD - 03/18/2021 Patient Name: KATHYA HOOPER Computed Tomography ACCESSION EXAM DATE/TIME PROCEDURE ORDERING PROVIDER [id number] 03/18/2021 16:27 EST CTA Chest w/ + w/o [id number] -CASTRO, Contrast BOO CPT code 37058 Q9967 Reason For Exam (CTA Chest w/ [...] Tomography ACCESSION EXAM DATE/TIME PROCEDURE ORDERING PROVIDER [id number] 03/18/2021 16:27 EST CTA Chest w/ + w/o [id number] REPLACED BY [facility], Contrast BOO CPT code 72277 Q9967 Reason For Exam (CTA Chest w/ [...] Transcribed Date and Time: 03/18/2021 4:36 Normal [facility] CTA HEAD NECK W WO CONTRASTo n 03-18-2021 Patient Name: KATHYA HOOPER Computed Tomography ACCESSION EXAM DATE/TIME PROCEDURE ORDERING PROVIDER [id number] 03/18/2021 16:26 EST CTA Head/Neck w/ + w/o 129721 -alyson CASTRO CPT code 06827 34554 Q9967 Reason For Exam (CTA Head/Neck w/ + w/o contrast) AMS, dysphasia and ?aphasia possibly since yesterday- very poor historian from intermediate w/ unclear prior deficits - here w/ "can't swallow" and can't tell us if it feels [...] OSAMA Transcribed Date and Time: 03/18/2021 4:52 [facility] Greyson Rai MD - 03/18/2021 [facility]: [id number] Computed Tomography ACCESSION EXAM DATE/TIME PROCEDURE ORDERING PROVIDER [id number] 03/18/2021 16:26 EST CTA Head/Neck w/ + w/o [id number] -alyson CASTRO CPT code 87523 60228 Q9967 Reason For Exam (CTA Head/Neck w/ + w/o contrast) AMS, dysphasia and ?aphasia possibly since yesterday- very poor historian from intermediate w/ unclear prior deficits - here w/ "can't swallow" and can't tell us if it feels [...] Tomography ACCESSION EXAM DATE/TIME PROCEDURE ORDERING PROVIDER [id number] 03/18/2021 16:26 EST CTA Head/Neck w/ + w/o 271953 -alyson CASTRO CPT code 75182 24313 Q9967 Reason For Exam (CTA Head/Neck w/ + w/o contrast) AMS, dysphasia and ?aphasia possibly since yesterday- very poor historian from intermediate w/ unclear prior deficits - here w/ "can't swallow" and can't tell us if it feels [...] Transcribed Date and Time: 03/18/2021 4:52 Normal [facility] ED Provider Noteon ED Provider Note [facility] ED EMERGENCY DEPARTMENT ENCOUNTER Pt Name: Kathya [...] dependant for dysphagia, presenting via EMS from [facility] with complaint of AMS, garbled [...] Vaping Us (more content not included)... Normal [facility] Hemogram w/ Autodiffon 03-18 Abs Baso Cnt 0.0 10*3/uL Normal 0.0-0.2 [facility] Comment on above: Performed By: #### H EMDF, BMP3 #### [email or web address] [address] [place] [address] Abs Neutrophile Cnt 7.3 10*3/uL High 1.8-7.0 [facility] Comment on above: Performed By: #### H EMDF, BMP3 #### [facility] [address] [place] [address] Basophils/100 WBC (Bld) 0.5 % Normal 0.0-2.0 S [facility] Comment on above: Performed By: #### H EMDF, BMP3 #### [facility] [address] [place] [address] Eosinophils (Bld) [#/Vol] 0.0 10*3/uL Normal 0.0-0.5 [facility] Comment on above: Performed By: #### H EMDF, BMP3 #### [facility] [address] [place] [address] Eosinophils/100 WBC (Bld) 0.1 % Low 1.0-6.0 [facility] Comment on above: Performed By: #### H EMDF, BMP3 #### [facility] [address] [place] [address] Erythrocyte distribution width (RBC) [Ratio] 12.9 % Normal 11.5-14.5 [facility] Comment on above: Performed By: #### H EMDF, BMP3 #### [facility] [address] [place] [address] Granulocytes/100 WBC (Bld) 82.8 % High 40.0-80.0 [facility] Comment on above: Performed By: #### H EMDF, BMP3 #### [facility] [address] [place] [address] Hematocrit (Bld) [Volume fraction] 38.3 % Low 40.0-52.0 [facility] Comment on above: Performed By: #### H EMDF, BMP3 #### [facility] [address] [place] [address] Hemoglobin (Bld) [Mass/Vol] 13.6 g/dL Normal 13.0-18.0 [facility] Comment on above: Performed By: #### H EMDF, BMP3 #### [facility] [address] [place] [address] Lymphocytes (Bld) [#/Vol] 0.7 10*3/uL Low 1.0-4.3 [facility] Comment on above: Performed By: #### H EMDF, BMP3 #### [facility] [address] [place] [address] Lymphocytes/100 WBC (Bld) 7.6 % Low 20.0-40.0 [facility] Comment on above: Performed By: #### H EMDF, BMP3 #### [facility] [address] [place] [address] MCH (RBC) [Entitic mass] 32.0 pg Normal 26.0-34.0 [facility] Comment on above: Performed By: #### H EMDF, BMP3 #### [facility] [address] [place] [address] MCHC 35.4 % Normal 32.0-36.0 [facility] Comment on above: Performed By: #### H EMDF, BMP3 #### [facility] [address] [place] [address] MCV (RBC) [Entitic vol] 90.2 fL Normal 80.0-98.0 [facility] Comment on above: Performed By: #### H EMDF, BMP3 #### [facility] [address] [place] [address] Monocytes (Bld) [#/Vol] 0.8 10*3/uL Normal 0.0-0.8 [facility] Comment on above: Performed By: #### H EMDF, BMP3 #### [facility] [address] [place] [address] Monocytes/100 WBC (Bld) 9.0 % Normal 2.0-10.0 [facility] Comment on above: Performed By: #### H EMDF, BMP3 #### [facility] [address] [place] [address] Platelet mean volume (Bld) [Entitic vol] 9.8 fL Normal 7.4-10.4 [facility] Comment on above: Performed By: #### H EMDF, BMP3 #### [facility] [address] [place] [address] Platelets (Bld) [#/Vol] 129 10*3/uL Low 140-440 [facility] Comment on above: Performed By: #### H MAYKEL BMP3 #### [facility] [address] [place] [address] RBC (Bld) [#/Vol] 4.24 10*6/uL Low 4.40-5.90 [facility] Comment on above: Performed By: #### H MAYKEL BMP3 #### [facility] [address] [place] [address] WBC (Bld) [#/Vol] 8.8 10*3/uL Normal 3.6-10.7 [facility] Comment on above: Performed By: #### H MAYKEL BMP3 #### [facility] [address] [place] [address] MAGNESIUMon 03-18-2021 Magnesium [Mass/Vol] 2.0 mg/dL 1.6 - 2 .3 mg/dL [facility] Magnesiumon 03-18-2021 Magnesium [Mass/Vol] 2.0 mg/dL Normal 1.6-2.3 [facility] Comment on above: Performed By: #### H MAYKEL BMP3 #### [facility] [address] [place] [address] NT pro BNPon 03-18-2021 Natriuretic peptide B (Bld) [Mass/Vol] 710 pg/mL High 0-125 [facility] Comment on above: Performed By: #### H MAYKEL BMP3 #### [facility] [address] [place] [address] No Panel Informationon 03-18 Test Performed by [facility], [address] [place], [place] [address] [facility] PROTIME/INR & PTTon 03-18-20 21 aPTT Coag (Bld) [Time] 30.7 s High 20.0 - 30.5 s [facility] Comment on above: NOTE: The therapeuti c time for Heparin anticoagulation, based on Xa activity inhibition, is an APTT of 46-80 seconds. INR Coag (Bld) [Relative time] 1.1 {INR} [facility] Comment on above: Recommended Anticoag ulant Therapy: [...] and review of laboratory results Abnormal [facility] PT Coag (PPP) [Time] 11.4 s 9.0 - 12.0 s [facility] Comment on above: . Test Performed by [facility], [address], [place], [place] [address] [facility] Protime AND APTTon aPTT Coag (Bld) [Time] 30.7 s High 20.0-30.5 [facility] Comment on above: Result Comment: NOTE : The therapeutic time for Heparin anticoagulation, based on Xa activity inhibition, is an APTT of 46-80 seconds. Performed By: #### H MAYKEL, BMP3 #### [facility] [address] [place] [address] INR 1.1 Normal 0.9-1.1 [facility] Comment on above: Result Comment: Yefri mmended [...] Performed By: #### H MAYKEL, BMP3 #### [facility] [address] [place] [address] PT Coag (PPP) [Time] 11.4 s Normal 9.0-12.0 [facility] Comment on above: Result Comment: . Performed By: #### H MAYKEL, BMP3 #### [facility] [address] [place] [address] SARS-CoV-2, Flu A/B and RSVo n 03-18-2021 SARS-CoV-2 (COVID-19) RNA SHIRLEY+probe Ql (Unsp spec) SARS-CoV-2 --> Status: F Not Detected. Flu A PCR --> Status: F Not Detected. Flu B PCR --> Status: F Not Detected. RSV PCR --> Status: F DETECTED Expected Result: Not Detected _ Method: Real-time, RT-PCR This assay was developed by [employer] and distributed under an Emergency Use Authorization (EUA) granted by the FDA for the qualitative detection of nucleic acids from SARS-CoV-2, Influenza A, Influenza B, and Respiratory Syncytial Virus. Provider and patient fact sheets can be found at https://www.fda.gov/m edia/021635/download and https://www.fda.gov/ edia/489573/download. Expected Result: Not Detected _ Method: Real-time, RT-PCR This assay was developed by [employer] and distributed under an Emergency Use Authorization (EUA) granted by the FDA for the qualitative detection of nucleic acids from SARS-CoV-2, Influenza A, Influenza B, and Respiratory Syncytial Virus. Provider and patient fact sheets can be found at https://www.[employer].gov/m edia/777244/download and https://www.[employer].gov/ edia/472001/download. Abnormal [facility] Comment on above: Performed By: #### C VFLR #### [facility] [address] [place] [address] , [id number] TS GELon 03-18-2021 TS GEL ABO Group: O Rh, Gel: POS Antibody Screen Gel: NEG Normal [facility] Comment on above: Performed By: #### T SGL #### [facility] [email or web address] TYPE AND SCREENon 03-18-2021 ABO Grouping O [facility] Rh Type Positive [facility] Test Performed by [facility], [address] [place], [place], [place] [address] [facility] CHEST PORTABLEon 03-18-20 Patient Name: KATHYA HOOPER Diagnostic Radiology ACCESSION EXAM DATE/TIME PROCEDURE ORDERING PROVIDER [id number] 03/18/2021 15:30 EST CR Chest Portable [id number] [place] [address] CPT code 14786 Reason For Exam (CR Chest Portable) sob, [...] KRIKOR Transcribed Date and Time: 03/18/2021 3:35 [facility] RAD Alejandra Munoz MD - 03/18/2021 [facility]: [id number] Diagnostic Radiology ACCESSION EXAM DATE/TIME PROCEDURE ORDERING PROVIDER [id number] 03/18/2021 15:30 EST CR Chest Portable [address] [place] [address] CPT code 97875 Reason For Exam (CR Chest Portable) sob, [...] 03-18-2021 [facility] Work Phone: ED Provider Noteon 1 ED Provider Note - Attestation signed by Edwin Montejo MD at 10/31/2020 7:09 AM Emergency Medicine Attending Note This patient was seen and treated independently by the resource paraprofessional. I was present and available in the emergency department when this patient was treated. Vero Montejo MD [facility] ED eMERGENCY dEPARTMENT eNCOUnter Pt Name: Kathya [...] Diagnosis Date ? TREVER (acute kidney injury) ([facility]) ? Alcohol abuse 07/08/2018 ? Anxiety ? Depression ? Fall 06/2018 ? Schizophrenia ([facility]) SURGICALHISTORY Past Surgical History: Procedure [...] Strain: ? (more content not included)... Normal [facility] GI TUBE EVALUATION W CONT RASTOrdered By: Helen Toledo on 10-30-2020 Patient Name: KATHYA HOOPER Fluoroscopy ACCESSION EXAM DATE/TIME PROCEDURE ORDERING PROVIDER [id number] 10/30/2020 15:07 EDT RF Intro Long GI Tube w/ KRISTA TOLEDO AMY L Fluoro CPT code 25102 Reason For Exam (RF Intro Long GI [...] Phone: Jaquan, [facility] Incoming Radiology Results From [facility] - 10/30/2020 4:07 PM EDT Patient Name: KATHYA HOOPER Fluoroscopy ACCESSION EXAM DATE/TIME PROCEDURE ORDERING PROVIDER [id number] 10/30/2020 15:07 EDT RF Intro Long GI Tube w/ KRISTA TOLEDO AMY L Fluoro CPT code 37761 Reason For Exam (RF Intro Long GI [...] Transcribed Date and Time: 10/30/2020 4:06 [facility] Work Phone: [facility] Work Phone: RF Intro Long GI Tube w/ Flu oroon 10-30-2020 RF Intro Long GI Tube w/ Fluoro Patient Name: KATHYA HOOPER Fluoroscopy ACCESSION EXAM DATE/TIME PROCEDURE ORDERING PROVIDER [id number] 10/30/2020 15:07 EDT RF Intro Long GI Tube w/ KRISTA TOLEDO, HELEN [place] Fluoro CPT code 26785 Reason For Exam (RF Intro Long GI [...] Transcribed Date and Time: 10/30/2020 4:06 Normal [facility] ED Provider Noteon ED Provider Note [facility] ED EMERGENCY DEPARTMENT ENCOUNTER Pt Name: Kathya Hooper Birthdate 1955 Date of evaluation: 09/22/2020 Provider: Elizabeth Burgess MD CHIEF COMPLAINT Chief Complaint Patient presents [...] Gatherings with Friends and Family: ? Attends Alevism Services: ? Active Member of Clubs or [...] Soft, non-distended (more content not included)... Normal [facility] [place] GI TUBE EVALUATION W CONT RASTOrdered By: Elizabeth Burgess on 09-22-2020 Patient Name: KATHYA HOOPER Fluoroscopy ACCESSION EXAM DATE/TIME PROCEDURE ORDERING PROVIDER [id number] 09/22/2020 04:09 EDT RF Intro Long GI Tube w/ 5816 ELIZABETH BARBER CPT code 54543 Reason For Exam (RF Intro Long GI [...] Transcribed Date and Time: 09/22/2020 5:11 [facility] Work Phone: Jaquan, [facility] Incoming Radiology Results From [facility] - 09/22/2020 5:11 AM EDT Patient Name: KATHYA HOOPER Fluoroscopy ACCESSION EXAM DATE/TIME PROCEDURE ORDERING PROVIDER [id number] 09/22/2020 04:09 EDT RF Intro Long GI Tube w/ 58Hayley ELIZABETH BARBER CPT code 16160 Reason For Exam (RF Intro Long GI [...] Transcribed Date and Time: 09/22/2020 5:11 [facility] Work Phone: [facility] Work Phone: RF Intro Long GI Tube w/ Flu oroon 09-22-2020 RF Intro Long GI Tube w/ Fluoro Patient Name: KATHYA HOOPER Fluoroscopy ACCESSION EXAM DATE/TIME PROCEDURE ORDERING PROVIDER [id number] 09/22/2020 04:09 EDT RF Intro Long GI Tube w/ 58ELIZABETH LU CPT code 92669 Reason For Exam (RF Intro Long GI [...] JEFFREY Transcribed Date and Time: 09/22/2020 5:11 [facility] ED Provider Noteon ED Provider Note [facility] ED EMERGENCY DEPARTMENT ENCOUNTER Pt Name: Kathya [...] otherwise acutely negative except as in the [place]. PAST MEDICAL HISTORY Past Medical History: Diagnosis Date ? TREVER (acute kidney injury) ([facility]) ? Alcohol abuse 07/08/2018 ? [...] (AQUAPHOR) ointment Apply topically as needed. Balsam [place] [employer] (VENELEX) OINT ointment Apply topically every [...] file Gets together: Not on file Attends mandaen service: Not on file Active member of [...] for level (more content not included)... Normal [facility] [place] GI TUBE EVALUATION W [facility] 06-26-2020 Patient Name: KATHYA HOOPER Fluoroscopy ACCESSION EXAM DATE/TIME PROCEDURE ORDERING PROVIDER [id number] 06/26/2020 20:20 EST RF Intro Long GI Tube w/ [id number] -ABELARDO RIOS CPT code 11272 Reason For Exam (RF Intro Long GI [...] Phone: Jaquan, [facility] Incoming Radiology Results From [facility] - 06/26/2020 9:16 PM EST [facility]: [id number] Fluoroscopy ACCESSION EXAM DATE/TIME PROCEDURE ORDERING PROVIDER [id number] 06/26/2020 20:20 EST RF Intro Long GI Tube w/ 105973 -ABELARDO RIOS CPT code 01681 Reason For Exam (RF Intro Long GI [...] of procedure: Tolerated well, no immediate complications [facility] Work Phone: RF Intro Long GI Tube w/ Flu oroon 06-26-2020 RF Intro Long GI Tube w/ Fluoro Patient [facility]: [id number] Fluoroscopy ACCESSION EXAM DATE/TIME PROCEDURE ORDERING PROVIDER [id number] 06/26/2020 20:20 EST RF Intro Long GI Tube w/ [id number] -CHINADAVIDEABELARDO PRAKASH CPT code 49017 Reason For Exam (RF Intro Long GI [...] Transcribed Date and Time: 06/26/2020 9:16 Normal [facility] Clinical Summary: HMSPatient IDon 05-22-2019 WOP [facility] Work Phone: Office Visit: New - 1st visi t with practice, Rm: 2on 05-22-2019 NEGATED: Highlighted rowCT scan history of the right lower extremity on 05/16/2019 at [facility] Work Phone: NEGATED: Highlighted rowTobacco smoking status NHIS current someday smoker [facility] Work Phone: NEGATED: Highlighted rowxray history of the pelvis with hip on 05/11/2019 at [facility] , of the pelvis on 05/13/2019 at [facility] Imaging [facility] Work Phone: CT LOWER EXTREMITY RIGHT WO CONTRASTOrdered By: Elizabeth Burgess on 05-16-2019 Patient Name: KATHYA HOOPER ---CT--- Exam Date/Time 05/16/2019 21:10:[address] Low Ext w/o Contrast Right Ordering Physician ZakHayley BARBER ELIZABETH Accession Number [id number] CPT4 Codes 37258 () Reason For Exam right hip pain, [...] Phone: Jaquan, [facility] Incoming Radiology Results From [facility] - 05/16/2019 9:24 PM EST Patient Name: KATHYA HOOPER ---CT--- Exam Date/Time 05/16/2019 21:10:[address] Low Ext w/o Contrast Right Ordering Physician ELIZABETH BARKER Accession Number [id number] CPT4 Codes 49618 () Reason For Exam right hip pain, [...] Transcribed Date and Time: 05/16/2019 9:24 [facility] Work Phone: Differential,Body Fluidson 0 09-27-2018 Other Cells 46 % Normal [facility] Comment on above: Result Comment: Bloo dy specimen with reactive mesothelial cells and chronic inflammation with occasional hemophagocytosis. 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 [place] [address] CULTURE AND STAIN - FLUIDon 09-25-2018 CULTURE AND STAIN - FLUID CULTURE & STAIN - FLUID --> Status: F No growth at 5 days. STAIN GRAM --> Status: F Moderate polymorphonuclear cells/lpf. Moderate mononuclear cells/lpf No organisms seen. Cytocentrifugation performed. Moderate mononuclear cells/lpf No organisms seen. Cytocentrifugation performed. Normal [facility] Comment on above: Performed By: #### H EMDF, PT, BMP3M, PHOS3, MG3, CK3 #### [facility] [address] [place], [place] #### VD25H #### [facility] [address] [place] [address] Cell Count,Body Fluidon 05- Nucleated Cells 2391 {cells}/uL Normal [facility] Comment on above: Performed By: #### H EMDF, PT, BMP3M, PHOS3, MG3, CK3 #### [facility] [address] [place], [place] #### VD25H #### [facility] [address] [place] [address] [place] [address] {RBC}/uL Normal [facility] Comment on above: Performed By: #### H EMDF, PT, BMP3M, PHOS3, MG3, CK3 #### [place] [place], [place] #### VD25H #### [facility] [address] [place] [address] Fluid Type Thoracentesis Normal [facility] [place] [facility] Comment on above: Performed By: #### H EMDF, PT, BMP3M, PHOS3, MG3, CK3 #### [address] [place], [place] #### VD25H #### [facility] [address] [place] [address] Differential,Body Fluidson 0 09-25-2018 Lymphocytes/100 WBC (Bld) 28 % Normal [facility] Comment on above: Performed By: #### H EMDF, PT, BMP3M, PHOS3, MG3, CK3 #### [address] [place] [address] [place], [place] #### VD25H #### [facility] [address] [place] [address] Monocytes/100 WBC (Bld) 1 % Normal [facility] Comment on above: Performed By: #### H EMDF, PT, BMP3M, PHOS3, MG3, CK3 #### [address] [place] [address] [place], [place] #### VD25H #### [facility] [address] [place] [address] Neutrophils/100 WBC (Bld) 25 % Normal [facility] Comment on above: Performed By: #### H EMDF, PT, BMP3M, PHOS3, MG3, CK3 #### [address] [place] [address] [place], [place] #### VD25H #### [facility] [address] [place] [address] Cells Counted for Diff 100 Normal [facility] Comment on above: Performed By: #### H EMDF, PT, BMP3M, PHOS3, MG3, CK3 #### [address] [place] [address] #### VD25H #### [facility] [address] [place] [address] LDH, Body Fluidon 09-25-2018 LDH, Body Fluid 174 U/L Normal No Range [facility] Comment on above: Performed By: #### H EMDF, PT, BMP3M, PHOS3, MG3, CK3 #### [facility] [address] [place] [address] #### VD25H #### [facility] [address] [place] [address] Protein, Total Body Fluidon 09-25-2018 Protein,Total-Body Fld 3.4 g/dL Normal No Range [facility] Comment on above: Performed By: #### H EMDF, PT, BMP3M, PHOS3, MG3, CK3 #### [address] [place], [place] #### VD25H #### [facility] [address] [place] [address] US Thora-Aspir Pleura w/ Evelin geon 09-25-2018 US Thora-Aspir Pleura w/ Image Patient Name: KATHYA HOOPER Ultrasound Exam Date/Time 09/25/2018 13:23:41 EDT Exam US Thora-Aspir Pleura w/ Image Ordering Physician SALO DAVIS Accession Number [id number] CPT4 Codes 25146 () Reason For Exam pleural effusion Report [...] Transcribed Date and Time: 09/25/2018 3:07 Normal [facility] CULTURE MYCOBACTERIAon 09-03 CULTURE MYCOBACTERIA CULTURE MYCOBACTERI A --> Status: F No acid-fast bacilli isolated after 6 weeks incubation. [facility] Comment on above: Performed By: #### H EMDF, PT, BMP3M, PHOS3, MG3, CK3 #### [facility] [address] [place] [address] #### VD25H #### [facility] [address] [place] [address] CULTURE URINEon 08-23-2018 CULTURE URINE CULTURE URINE --> Status: F No growth (<1,000 CFU/ml). [facility] Comment on above: Order Comment: Speci men Source Comment:Urine, clean catch Performed By: #### H EMDF, PT, BMP3M, PHOS3, MG3, CK3 #### [facility] [address] [place] [address] #### VD25H #### [facility] [address] [place] [address] CR Chest Portableon 08-23-19 19 CR Chest Portable Patient Name: KATHYA HOOPER Diagnostic Radiology Exam Date/Time 08/22/2018 07:07:07 EDT Exam CR Chest Portable Ordering Physician HIRAM ONEIL Accession Number [id number] CPT4 Codes 44582 () Reason For Exam dyspnea Report Portable [...] Transcribed Date and Time: 08/22/2018 7:31 Normal [facility] Glucose,Bedsideon 08-22-2018 Glucose mass conc 127 mg/dL High 70-100 [facility] Comment on above: Result Comment: Test performed by glucose meter. Results may be 10%-15% lower than serum/plasma values. (CLIA ID [id number]) Performed By: #### H EMDF, PT, BMP3M, PHOS3, MG3, CK3 #### [facility] [address] [place] [address] #### VD25H #### [facility] [employer] [facility] [address] [place] [address] Urinalysis,Macroon 9 Appearance Nom (U) clear Normal Clear [facility] Comment on above: Performed By: #### H EMDF, PT, BMP3M, PHOS3, MG3, CK3 #### [facility] [place] [facility] [address] [place], [place] #### VD25H #### [facility] [address] [place] [address] Bilirubin,Ur Negative Normal Negative [facility] Comment on above: Performed By: #### H EMDF, PT, BMP3M, PHOS3, MG3, CK3 #### [facility] [address] [place], [place] #### VD25H #### [facility] [address] [place] [address] Color Nom (U) dk.yel Normal Lt. Yellow [facility] [place] [facility] Comment on above: Performed By: #### H EMDF, PT, BMP3M, PHOS3, MG3, CK3 #### [address] [place], [place] #### VD25H #### [facility] [address] [place] [address] Glucose Ql (U) NORM Normal Negative [facility] Comment on above: Performed By: #### H EMDF, PT, BMP3M, PHOS3, MG3, CK3 #### [address] [place], [place] #### VD25H #### [facility] [address] [place] [address] Ketone,Urine Negative Normal Negative [facility] Comment on above: Performed By: #### H EMDF, PT, BMP3M, PHOS3, MG3, CK3 #### [address] [place], [place] #### VD25H #### [facility] [address] [place] [address] Nitrite Ql (U) Negative Normal Negative [facility] Comment on above: Performed By: #### H EMDF, PT, BMP3M, PHOS3, MG3, CK3 #### [address] [place], [place] #### VD25H #### [facility] [address] [place] [address] Occult Blood,Ur Negative Normal Negative [facility] Comment on above: Performed By: #### H EMDF, PT, BMP3M, PHOS3, MG3, CK3 #### [address] #### VD25H #### [facility] [address] [place] [address] pH (U) 8.0 Normal 5.0-8.0 [facility] Comment on above: Performed By: #### H EMDF, PT, BMP3M, PHOS3, MG3, CK3 #### [facility] [address] [place], [place] #### VD25H #### [facility] [address] [place] [address] Protein mass conc (U) Negative Normal Negative [facility] Comment on above: Performed By: #### H EMDF, PT, BMP3M, PHOS3, MG3, CK3 #### [address] [place], [place] #### VD25H #### [facility] [address] [place] [address] Specific [place],Urine 1.015 Normal 1.005-1.030 [facility] Comment on above: Performed By: #### H EMDF, PT, BMP3M, PHOS3, MG3, CK3 #### [address] [place], [place] #### VD25H #### [facility] [address] [place] [address] Urobilinogen Qn (U) 1 mg/dL Normal 0-1 [facility] Comment on above: Performed By: #### H EMDF, PT, BMP3M, PHOS3, MG3, CK3 #### [address] [address] [place], [place] #### VD25H #### [facility] [address] [place] [address] WBC #/vol (Bld) Negative Normal Negative [facility] Comment on above: Performed By: #### H EMDF, PT, BMP3M, PHOS3, MG3, CK3 #### [address] [place], [place] #### VD25H #### [facility] [address] [place] [address] Basic Metabolic Panelon 04-2 Calcium mass conc 7.8 mg/dL Low 8.4-10.4 [facility] Comment on above: Performed By: #### H EMDF, PT, BMP3M, PHOS3, MG3, CK3 #### [facility] [address] [place], [place] #### VD25H #### [facility] [address] [place] [address] Glucose mass conc 102 mg/dL High 70-100 [facility] Comment on above: Performed By: #### H EMDF, PT, BMP3M, PHOS3, MG3, CK3 #### [address] [place], [place] #### VD25H #### [facility] [address] [place] [address] Anion gap molar conc 0 Normal [facility] Comment on above: Performed By: #### H EMDF, PT, BMP3M, PHOS3, MG3, CK3 #### [address] [place], [place] #### VD25H #### [facility] [address] [place] [address] CO2 molar conc 37 mmol/L High 22-30 [facility] Comment on above: Performed By: #### H EMDF, PT, BMP3M, PHOS3, MG3, CK3 #### [address] [place] #### VD25H #### [facility] [address] [place] [address] Creatinine mass conc 0.46 mg/dL Low 0.52-1.25 [facility] Comment on above: Performed By: #### H EMDF, PT, BMP3M, PHOS3, MG3, CK3 #### [address] [facility], [place] #### VD25H #### [facility] [address] [place] [address] GFR/1.73 sq M predicted among blacks MDRD vol rate/area (S/P/Bld) mL/min/{1.73_m2} Normal >60 [facility] [place] [facility] Comment on above: Performed By: #### H EMDF, PT, BMP3M, PHOS3, MG3, CK3 #### [facility] [address] [place], [place] #### VD25H #### [facility] [address] [place] [address] GFR/1.73 sq M predicted among non-blacks MDRD vol rate/area (S/P/Bld) mL/min/{1.73_m2} Normal >60 [facility] Comment on above: Result Comment: Sour ce- MDRD equation with creatinine calibration to IDMS(NKDEP) eGFR not recommended for drug dose adjustment Performed By: #### H EMDF, PT, BMP3M, PHOS3, MG3, CK3 #### [address] #### VD25H #### [facility] [address] [place] [address] Urea nitrogen mass conc 7 mg/dL Normal 7-20 [facility] Comment on above: Performed By: #### H EMDF, PT, BMP3M, PHOS3, MG3, CK3 #### [address] [place], [place] #### VD25H #### [facility] [address] [place] [address] Potassium molar conc 3.7 mmol/L Normal 3.5-5.1 [facility] Comment on above: Performed By: #### H EMDF, PT, BMP3M, PHOS3, MG3, CK3 #### [place] [address] [facility], [place] #### VD25H #### [facility] [address] [place] [address] Chloride molar conc 101 mmol/L Normal 98-107 [facility] Comment on above: Performed By: #### H EMDF, PT, BMP3M, PHOS3, MG3, CK3 #### [address] [address] [place], [place] #### VD25H #### [facility] [address] [place] [address] Sodium molar conc 138 mmol/L Normal 135-145 [facility] Comment on above: Performed By: #### H EMDF, PT, BMP3M, PHOS3, MG3, CK3 #### [facility] [address] [place] [address] #### VD25H #### [facility] [address] [place] [address] CR Chest Portableon 08-22-19 19 CR Chest Portable Patient Name: KATHYA HOOPER Diagnostic Radiology Exam Date/Time 08/21/2018 09:46:47 EDT Exam CR Chest Portable Ordering Physician MALLORY STAPLES Accession Number [id number] CPT4 Codes 65622 () Reason For Exam edema Report PORTABLE [...] Time: 08/21/2018 11:15 am Signed by: MD RODIRGUEZ JONATHAN R Transcribed Date and Time: 08/21/2018 11:14 Normal [facility] CULTURE ANAEROBEon 9 CULTURE ANAEROBE CULTURE ANAEROBE --> Status: F No growth of anaerobes at 5 days. Normal [facility] Comment on above: Order Comment: or co llected Performed By: #### H EMDF, PT, BMP3M, PHOS3, MG3, CK3 #### [email or web address] [facility] [address] [place] [address] #### VD25H #### [email or web address] [facility] [address] [place] [address] Glucose,Bedsideon 08-21-2018 Glucose mass conc 124 mg/dL High 70-100 [facility] Comment on above: Result Comment: Test performed by glucose meter. Results may be 10%-15% lower than serum/plasma values. (CLIA ID [id number]) Performed By: #### H EMDF, PT, BMP3M, PHOS3, MG3, CK3 #### [email or web address] [facility] [address] [place] [address] #### VD25H #### [email or web address] [facility] [address] [place] [address] Glucose mass conc 135 mg/dL High 70-100 [facility] Comment on above: Result Comment: Test performed by glucose meter. Results may be 10%-15% lower than serum/plasma values. (CLIA ID [id number]) Performed By: #### H EMDF, PT, BMP3M, PHOS3, MG3, CK3 #### [email or web address] [address] [place] [address] #### VD25H #### [email or web address] [address] [place] [place] [address] Glucose mass conc 131 mg/dL High 70-100 [facility] Comment on above: Result Comment: Test performed by glucose meter. Results may be 10%-15% lower than serum/plasma values. (CLIA ID [id number]) Performed By: #### H EMDF, PT, BMP3M, PHOS3, MG3, CK3 #### [email or web address] [address] [place] [address] #### VD25H #### [email or web address] [address] [place] [address] Glucose mass conc 112 mg/dL High 70-100 [facility] Comment on above: Result Comment: Test performed by glucose meter. Results may be 10%-15% lower than serum/plasma values. (CLIA ID [id number]) Performed By: #### H EMDF, PT, BMP3M, PHOS3, MG3, CK3 #### [address] [place], [place] #### VD25H #### [facility] [address] [place] [address] Basic Metabolic Panelon -2 Anion gap molar conc 4 Normal [facility] Comment on above: Performed By: #### H EMDF, PT, BMP3M, PHOS3, MG3, CK3 #### [address] #### VD25H #### [facility] [address] [place] [address] Calcium mass conc 7.6 mg/dL Low 8.4-10.4 [facility] Comment on above: Performed By: #### H EMDF, PT, BMP3M, PHOS3, MG3, CK3 #### [address] #### VD25H #### [facility] [address] [place] [address] CO2 molar conc 36 mmol/L High 22-30 [facility] Comment on above: Performed By: #### H EMDF, PT, BMP3M, PHOS3, MG3, CK3 #### [address] [facility], [place] #### VD25H #### [facility] [address] [place] [address] Glucose mass conc 121 mg/dL High 70-100 [facility] Comment on above: Performed By: #### H EMDF, PT, BMP3M, PHOS3, MG3, CK3 #### [address] [address] [facility] [place] #### VD25H #### [facility] [address] [place] [address] Urea nitrogen mass conc 9 mg/dL Normal 7-20 [facility] Comment on above: Performed By: #### H EMDF, PT, BMP3M, PHOS3, MG3, CK3 #### [facility] [address] [place] [address] #### VD25H #### [facility] [address] [place] [address] Creatinine mass conc 0.51 mg/dL Low 0.52-1.25 [facility] Comment on above: Performed By: #### H EMDF, PT, BMP3M, PHOS3, MG3, CK3 #### [address] #### VD25H #### [facility] [address] [place] [address] GFR/1.73 sq M predicted among blacks MDRD vol rate/area (S/P/Bld) mL/min/{1.73_m2} Normal >60 [facility] Comment on above: Performed By: #### H EMDF, PT, BMP3M, PHOS3, MG3, CK3 #### [address] #### VD25H #### [facility] [address] [place] [address] GFR/1.73 sq M predicted among non-blacks MDRD vol rate/area (S/P/Bld) mL/min/{1.73_m2} Normal >60 [facility] Comment on above: Result Comment: Sour ce- MDRD equation with creatinine calibration to IDMS(NKDEP) eGFR not recommended for drug dose adjustment Performed By: #### H EMDF, PT, BMP3M, PHOS3, MG3, CK3 #### [address] #### VD25H #### [facility] [address] [place] [address] Chloride molar conc 100 mmol/L Normal 98-107 [facility] Comment on above: Performed By: #### H EMDF, PT, BMP3M, PHOS3, MG3, CK3 #### [facility] [address] [place], [place] #### VD25H #### [facility] [address] [place] [address] Potassium molar conc 3.3 mmol/L Low 3.5-5.1 [facility] Comment on above: Performed By: #### H EMDF, PT, BMP3M, PHOS3, MG3, CK3 #### [facility] [address] [place], [place] #### VD25H #### [facility] [address] [place] [address] Sodium molar conc 140 mmol/L Normal 135-145 [facility] Comment on above: Performed By: #### H EMDF, PT, BMP3M, PHOS3, MG3, CK3 #### [address] [place], [place] #### VD25H #### [facility] [address] [place] [address] Glucose,Bedsideon 08-20-2018 Glucose mass conc 121 mg/dL High 70-100 [facility] Comment on above: Result Comment: Test performed by glucose meter. Results may be 10%-15% lower than serum/plasma values. (CLIA ID [id number]) Performed By: #### H EMDF, PT, BMP3M, PHOS3, MG3, CK3 #### [address] [place] #### VD25H #### [facility] [address] [place] [address] Glucose mass conc 127 mg/dL High 70-100 [facility] Comment on above: Result Comment: Test performed by glucose meter. Results may be 10%-15% lower than serum/plasma values. (CLIA ID [id number]) Performed By: #### H EMDF, PT, BMP3M, PHOS3, MG3, CK3 #### [address] [place] #### VD25H #### [facility] [address] [place] [address] Hep A Abs, Totalon 9 Hep A Abs, Total Negative Normal Negative [facility] Comment on above: Result Comment: Perf ormed by [employer], [address], [facility] [place] [address] [email or web address] Moo Lay MD - Lab. Director Performed By: #### H EMDF, PT, BMP3M, PHOS3, MG3, CK3 #### [address] [place], [place] #### VD25H #### [facility] [address] [place] [address] Basic Metabolic Panelon 07-31 Anion gap molar conc 1 Normal [facility] Comment on above: Performed By: #### H EMDF, PT, BMP3M, PHOS3, MG3, CK3 #### [address] [place] #### VD25H #### [facility] [address] [place] [address] Calcium mass conc 7.6 mg/dL Low 8.4-10.4 [facility] Comment on above: Performed By: #### H EMDF, PT, BMP3M, PHOS3, MG3, CK3 #### [address] [address] [place], [place] #### VD25H #### [facility] [address] [place] [address] CO2 molar conc 33 mmol/L High 22-30 [facility] Comment on above: Performed By: #### H EMDF, PT, BMP3M, PHOS3, MG3, CK3 #### [address] [address] [place], [place] #### VD25H #### [facility] [address] [place] [address] Glucose mass conc 139 mg/dL High 70-100 [facility] Comment on above: Performed By: #### H EMDF, PT, BMP3M, PHOS3, MG3, CK3 #### [address] [phone] #### VD25H #### [facility] [address] [place] [address] Urea nitrogen mass conc 10 mg/dL Normal 7-20 [facility] Comment on above: Performed By: #### H EMDF, PT, BMP3M, PHOS3, MG3, CK3 #### [address] [address] #### VD25H #### [facility] [address] [place] [address] Creatinine mass conc 0.57 mg/dL Normal 0.52-1.25 [facility] Comment on above: Performed By: #### H EMDF, PT, BMP3M, PHOS3, MG3, CK3 #### [address] #### VD25H #### [place] [address] [place] [address] GFR/1.73 sq M predicted among blacks MDRD vol rate/area (S/P/Bld) mL/min/{1.73_m2} Normal >60 [facility] Comment on above: Performed By: #### H EMDF, PT, BMP3M, PHOS3, MG3, CK3 #### [address] [address] #### VD25H #### [address] [place] [address] GFR/1.73 sq M predicted among non-blacks MDRD vol rate/area (S/P/Bld) mL/min/{1.73_m2} Normal >60 [facility] Comment on above: Result Comment: Sour ce- MDRD equation with creatinine calibration to IDMS(NKDEP) eGFR not recommended for drug dose adjustment Performed By: #### H EMDF, PT, BMP3M, PHOS3, MG3, CK3 #### [address] [place] #### VD25H #### [facility] [address] [place] [address] Potassium molar conc 3.4 mmol/L Low 3.5-5.1 [facility] Comment on above: Performed By: #### H EMDF, PT, BMP3M, PHOS3, MG3, CK3 #### [facility] [address] [place], [place] #### VD25H #### [facility] [address] [place] [address] Chloride molar conc 104 mmol/L Normal 98-107 [facility] Comment on above: Performed By: #### H EMDF, PT, BMP3M, PHOS3, MG3, CK3 #### [facility] [address] [place], [place] #### VD25H #### [facility] [address] [place] [address] Sodium molar conc 138 mmol/L Normal 135-145 [facility] Comment on above: Performed By: #### H EMDF, PT, BMP3M, PHOS3, MG3, CK3 #### [address] [place], [place] #### VD25H #### [facility] [address] [place] [address] CULT./ST. BACTERIAon 019 CULT./ST. BACTERIA STAIN GRAM [...] 0.12 S Vancomycin(CHRISTI) = 1 S Normal [email or web address] Comment on above: Order Comment: or co llected Performed By: #### H EMDF, PT, BMP3M, PHOS3, MG3, CK3 #### [facility] [address] [place] [id number] #### VD25H #### [facility] [address] [place] [address] Basic Metabolic Panelon -2 Calcium mass conc 7.8 mg/dL Low 8.4-10.4 [facility] Comment on above: Performed By: #### H EMDF, PT, BMP3M, PHOS3, MG3, CK3 #### [facility] [address] [place] [phone] #### VD25H #### [facility] [address] [place] [address] Glucose mass conc 104 mg/dL High 70-100 [facility] Comment on above: Performed By: #### H EMDF, PT, BMP3M, PHOS3, MG3, CK3 #### [facility] [address] [place] [address] #### VD25H #### [facility] [address] [place] [address] Urea nitrogen mass conc 12 mg/dL Normal 7-20 [facility] Comment on above: Performed By: #### H EMDF, PT, BMP3M, PHOS3, MG3, CK3 #### [address] [place] [address] #### VD25H #### [facility] [address] [place] [address] Anion gap molar conc 5 Normal [facility] Comment on above: Performed By: #### H EMDF, PT, BMP3M, PHOS3, MG3, CK3 #### [place] [address] [address] [place] [address] #### VD25H #### [facility] [address] [place] [address] CO2 molar conc 26 mmol/L Normal 22-30 [facility] Comment on above: Performed By: #### H EMDF, PT, BMP3M, PHOS3, MG3, CK3 #### [place] [address] [address] [facility], [place] #### VD25H #### [facility] [address] [place] [address] Creatinine mass conc 0.61 mg/dL Normal 0.52-1.25 [facility] Comment on above: Performed By: #### H EMDF, PT, BMP3M, PHOS3, MG3, CK3 #### [address] [address] [place] [address] #### VD25H #### [facility] [address] [place] [address] GFR/1.73 sq M predicted among blacks MDRD vol rate/area (S/P/Bld) mL/min/{1.73_m2} Normal >60 [facility] Comment on above: Performed By: #### H EMDF, PT, BMP3M, PHOS3, MG3, CK3 #### [facility] [address] [place], [place] #### VD25H #### [facility] [address] [place] [address] GFR/1.73 sq M predicted among non-blacks MDRD vol rate/area (S/P/Bld) mL/min/{1.73_m2} Normal >60 [facility] Comment on above: Result Comment: Sour ce- MDRD equation with creatinine calibration to IDMS(NKDEP) eGFR not recommended for drug dose adjustment Performed By: #### H EMDF, PT, BMP3M, PHOS3, MG3, CK3 #### [address] #### VD25H #### [facility] [address] [place] [address] Chloride molar conc 107 mmol/L Normal 98-107 [facility] Comment on above: Performed By: #### H EMDF, PT, BMP3M, PHOS3, MG3, CK3 #### [address] #### VD25H #### [facility] [address] [place] [address] Potassium molar conc 3.4 mmol/L Low 3.5-5.1 [facility] Comment on above: Performed By: #### H EMDF, PT, BMP3M, PHOS3, MG3, CK3 #### [address] #### VD25H #### [facility] [address] [place] [address] Sodium molar conc 138 mmol/L Normal 135-145 [facility] Comment on above: Performed By: #### H EMDF, PT, BMP3M, PHOS3, MG3, CK3 #### [facility] [address] [place], [place] #### VD25H #### [facility] [address] [place] [address] Glucose,Bedsideon 08-18-2018 Glucose mass conc 113 mg/dL High 70-100 [facility] Comment on above: Result Comment: Test performed by glucose meter. Results may be 10%-15% lower than serum/plasma values. (CLIA ID [id number]) Performed By: #### H EMDF, PT, BMP3M, PHOS3, MG3, CK3 #### [address] #### VD25H #### [facility] [address] [place] [address] Hemogram w/ Autodiffon 08-18 Erythrocyte distribution width Ratio (RBC) 14.4 % Normal 11.5-14.5 [facility] Comment on above: Performed By: #### H EMDF, PT, BMP3M, PHOS3, MG3, CK3 #### [address] #### VD25H #### [facility] [address] [place] [address] Hematocrit Volume Fraction (Bld) 29.3 % Low 40.0-52.0 [facility] Comment on above: Performed By: #### H EMDF, PT, BMP3M, PHOS3, MG3, CK3 #### [address] #### VD25H #### [facility] [address] [place] [address] Hemoglobin mass conc (Bld) 9.8 g/dL Low 13.0-18.0 [facility] Comment on above: Performed By: #### H EMDF, PT, BMP3M, PHOS3, MG3, CK3 #### [address] #### VD25H #### [facility] [address] [place] [address] MCH Entitic mass (RBC) 28.0 pg Normal 26.0-34.0 [facility] Comment on above: Performed By: #### H EMDF, PT, BMP3M, PHOS3, MG3, CK3 #### [address] [place] #### VD25H #### [facility] [address] [place] [address] MCHC mass conc (RBC) 33.4 % Normal 32.0-36.0 [facility] Comment on above: Performed By: #### H EMDF, PT, BMP3M, PHOS3, MG3, CK3 #### [address] #### VD25H #### [place] [address] [place] [address] MCV Entitic volume (RBC) 84.1 fL Normal 80.0-98.0 [facility] Comment on above: Performed By: #### H EMDF, PT, BMP3M, PHOS3, MG3, CK3 #### [address] #### VD25H #### [place] [address] [place] [address] Platelet mean volume Entitic volume (Bld) 7.9 fL Normal 7.4-10.4 [facility] Comment on above: Performed By: #### H EMDF, PT, BMP3M, PHOS3, MG3, CK3 #### [address] #### VD25H #### [place] [address] [place] [address] Platelets #/vol (Bld) 301 10*3/uL Normal 140-440 [facility] Comment on above: Performed By: #### H EMDF, PT, BMP3M, PHOS3, MG3, CK3 #### [address] #### VD25H #### [facility] [address] [place] [address] RBC #/vol (Bld) 3.49 10*6/uL Low 4.40-5.90 [facility] Comment on above: Performed By: #### H EMDF, PT, BMP3M, PHOS3, MG3, CK3 #### [address] #### VD25H #### [facility] [address] [place] [address] WBC #/vol (Bld) 8.3 10*3/uL Normal 3.6-10.7 [facility] Comment on above: Performed By: #### H EMDF, PT, BMP3M, PHOS3, MG3, CK3 #### [address] #### VD25H #### [place] [address] [place] [address] Magnesiumon 08-18-2018 Magnesium mass conc 2.0 mg/dL Normal 1.6-2.3 [facility] Comment on above: Performed By: #### H EMDF, PT, BMP3M, PHOS3, MG3, CK3 #### [address] #### VD25H #### [address] [place] [address] Manual Diffon 08-18-2018 Abs Neutrophile Cnt 5.1 10*3/uL Normal 2.2-8.2 [facility] Comment on above: Performed By: #### H EMDF, PT, BMP3M, PHOS3, MG3, CK3 #### [address] #### VD25H #### [place] [address] [place] [address] Bands 3 % Normal 0-3 [facility] Comment on above: Performed By: #### H EMDF, PT, BMP3M, PHOS3, MG3, CK3 #### [address] [place], [place] #### VD25H #### [facility] [address] [place] [address] Eosinophils #/vol (Bld) 0.2 10*3/uL Normal 0.0-0.5 [facility] Comment on above: Performed By: #### H EMDF, PT, BMP3M, PHOS3, MG3, CK3 #### [facility] [address] [place] #### VD25H #### [facility] [address] [place] [address] Eosinophils/100 WBC (Bld) 2 % Normal 1-6 [facility] Comment on above: Performed By: #### H EMDF, PT, BMP3M, PHOS3, MG3, CK3 #### [address] #### VD25H #### [facility] [address] [place] [address] Lymphocytes #/vol (Bld) 2.1 10*3/uL Normal 1.1-4.5 [facility] Comment on above: Performed By: #### H EMDF, PT, BMP3M, PHOS3, MG3, CK3 #### [address] #### VD25H #### [facility] [address] [place] [address] Lymphocytes/100 WBC (Bld) 25 % Normal 20-40 [facility] Comment on above: Performed By: #### H EMDF, PT, BMP3M, PHOS3, MG3, CK3 #### [address] #### VD25H #### [facility] [address] [place] [address] Metamyelocytes 1 % Abnormal <1 [facility] Comment on above: Performed By: #### H EMDF, PT, BMP3M, PHOS3, MG3, CK3 #### [address] #### VD25H #### [facility] [address] [place] [address] Monocytes #/vol (Bld) 0.6 10*3/uL Normal 0.2-1.1 [facility] Comment on above: Performed By: #### H EMDF, PT, BMP3M, PHOS3, MG3, CK3 #### [facility] [address] [place] #### VD25H #### [facility] [address] [place] [address] Monocytes/100 WBC (Bld) 7 % Normal 2-10 [facility] Comment on above: Performed By: #### H EMDF, PT, BMP3M, PHOS3, MG3, CK3 #### [address] [place] #### VD25H #### [facility] [address] [place] [address] Myelocytes 1 % Abnormal <1 [facility] Comment on above: Performed By: #### H EMDF, PT, BMP3M, PHOS3, MG3, CK3 #### [address] [place] #### VD25H #### [facility] [address] [place] [address] Protein mass conc 2 % Abnormal <1 [facility] Comment on above: Performed By: #### H EMDF, PT, BMP3M, PHOS3, MG3, CK3 #### [address] [place] #### VD25H #### [facility] [address] [place] [address] RBC morphology finding Nom (Bld) See Prev Normal [facility] Comment on above: Performed By: #### H EMDF, PT, BMP3M, PHOS3, MG3, CK3 #### [address] [place] #### VD25H #### [facility] [address] [place] [address] Seg Neutrophils 59 % Normal 40-80 [facility] Comment on above: Performed By: #### H EMDF, PT, BMP3M, PHOS3, MG3, CK3 #### [facility] [address] [place] #### VD25H #### [facility] [address] [place] [address] Abs Baso Cnt 0.0 10*3/uL Normal 0.0-0.2 [facility] Comment on above: Performed By: #### H EMDF, PT, BMP3M, PHOS3, MG3, CK3 #### [address] #### VD25H #### [facility] [address] [place] [address] Basophils/100 WBC (Bld) 0 % Normal 0-2 [facility] Comment on above: Performed By: #### H EMDF, PT, BMP3M, PHOS3, MG3, CK3 #### [address] #### VD25H #### [facility] [address] [place] [address] Cells counted 100 Normal [facility] Comment on above: Performed By: #### H EMDF, PT, BMP3M, PHOS3, MG3, CK3 #### [address] #### VD25H #### [facility] [address] [place] [address] Phosphoruson 08-18-2018 Phosphate mass conc 4.6 mg/dL High 2.5-4.5 [facility] Comment on above: Performed By: #### H EMDF, PT, BMP3M, PHOS3, MG3, CK3 #### [address] #### VD25H #### [facility] [address] [place] [address] Basic Metabolic Panelon 07-30 Calcium mass conc 7.7 mg/dL Low 8.4-10.4 [facility] Comment on above: Performed By: #### H EMDF, PT, BMP3M, PHOS3, MG3, CK3 #### [place] [address] [place] #### VD25H #### [facility] [address] [place] [address] Anion gap molar conc 7 Normal [facility] Comment on above: Performed By: #### H EMDF, PT, BMP3M, PHOS3, MG3, CK3 #### [address] #### VD25H #### [facility] [address] [place] [address] CO2 molar conc 25 mmol/L Normal 22-30 [facility] Comment on above: Performed By: #### H EMDF, PT, BMP3M, PHOS3, MG3, CK3 #### [address] #### VD25H #### [facility] [address] [place] [address] Creatinine mass conc 0.59 mg/dL Normal 0.52-1.25 [facility] Comment on above: Performed By: #### H EMDF, PT, BMP3M, PHOS3, MG3, CK3 #### [address] #### VD25H #### [facility] [address] [place] [address] GFR/1.73 sq M predicted among blacks MDRD vol rate/area (S/P/Bld) mL/min/{1.73_m2} Normal >60 [facility] Comment on above: Performed By: #### H EMDF, PT, BMP3M, PHOS3, MG3, CK3 #### [address] #### VD25H #### [facility] [address] [place] [address] GFR/1.73 sq M predicted among non-blacks MDRD vol rate/area (S/P/Bld) mL/min/{1.73_m2} Normal >60 [facility] Comment on above: Result Comment: Sour ce- MDRD equation with creatinine calibration to IDMS(NKDEP) eGFR not recommended for drug dose adjustment Performed By: #### H EMDF, PT, BMP3M, PHOS3, MG3, CK3 #### [place] [address] [place] #### VD25H #### [facility] [address] [place] [address] Glucose mass conc 116 mg/dL High 70-100 [facility] Comment on above: Performed By: #### H EMDF, PT, BMP3M, PHOS3, MG3, CK3 #### [address] #### VD25H #### [facility] [address] [place] [address] Urea nitrogen mass conc 12 mg/dL Normal 7-20 [facility] Comment on above: Performed By: #### H EMDF, PT, BMP3M, PHOS3, MG3, CK3 #### [address] #### VD25H #### [facility] [address] [place] [address] Potassium molar conc 3.2 mmol/L Low 3.5-5.1 [facility] Comment on above: Performed By: #### H EMDF, PT, BMP3M, PHOS3, MG3, CK3 #### [address] #### VD25H #### [facility] [address] [place] [address] Sodium molar conc 138 mmol/L Normal 135-145 [facility] Comment on above: Performed By: #### H EMDF, PT, BMP3M, PHOS3, MG3, CK3 #### [facility] [address] [place] [address] #### VD25H #### [facility] [address] [place] [address] Chloride molar conc 106 mmol/L Normal 98-107 [facility] Comment on above: Performed By: #### H EMDF, PT, BMP3M, PHOS3, MG3, CK3 #### [facility] [address] [place] [address] #### VD25H #### [facility] [address] [place] [address] CR Chest Portableon 08-18-19 CR Chest Portable Patient Name: KATHYA HOOPER Diagnostic Radiology Exam Date/Time 08/17/2018 17:54:46 EDT Exam CR Chest Portable Ordering Physician SALO DAVIS Accession Number [id number] CPT4 Codes 43192 () Reason For Exam line placement Report [...] Transcribed Date and Time: 08/17/2018 6:05 Normal [facility] CR Chest Portable Patient Name: KATHYA HOOPER Diagnostic Radiology Exam Date/Time 08/17/2018 06:11:03 EDT Exam CR Chest Portable Ordering Physician ETIENNE VELÁSQUEZ KATHYA Julissa Accession Number [id number] CPT4 Codes 88908 () Reason For Exam follow left pleural [...] Transcribed Date and Time: 08/17/2018 7:16 Normal [facility] Ferritinon 08-17-2018 Ferritin mass conc 1100 ng/mL High 18-464 [facility] Comment on above: Performed By: #### H EMDF, PT, BMP3M, PHOS3, MG3, CK3 #### [facility] [address] [place] [address] #### VD25H #### [facility] [address] [place] [address] Folateon 08-17-2018 Folate 15.1 ng/mL Normal 2.8-20.0 [facility] Comment on above: Performed By: #### H EMDF, PT, BMP3M, PHOS3, MG3, CK3 #### [facility] [address] [place] [address] #### VD25H #### [facility] [address] [place] [address] Glucose,Bedsideon 08-17-2018 Glucose mass conc 133 mg/dL High 70-100 [facility] Comment on above: Result Comment: Test performed by glucose meter. Results may be 10%-15% lower than serum/plasma values. (CLIA ID [id number]) Performed By: #### H EMDF, PT, BMP3M, PHOS3, MG3, CK3 #### [address] #### VD25H #### [facility] [address] [place] [address] Hemoglobin A1Con 08-17-2018 Hemoglobin A1c/Hemoglobin.total mass fraction (Bld) 117 mg/dL Normal [facility] Comment on above: Performed By: #### H EMDF, PT, BMP3M, PHOS3, MG3, CK3 #### [address] #### VD25H #### [facility] [address] [place] [address] Hemoglobin A1c/Hemoglobin.total mass fraction (Bld) 5.7 % Normal 4.0-5.7 [facility] Comment on above: Result Comment: --Hg bA1C levels may not be accurate in patients who have renal disease, received recent blood transfusions, are anemic, or who have dyshemoglobinemia. Performed By: #### H EMDF, PT, BMP3M, PHOS3, MG3, CK3 #### [address] #### VD25H #### [facility] [address] [place] [address] Hemogram w/ Autodiffon 08-17 Erythrocyte distribution width Ratio (RBC) 14.3 % Normal 11.5-14.5 [facility] Comment on above: Performed By: #### H EMDF, PT, BMP3M, PHOS3, MG3, CK3 #### [address] #### VD25H #### [facility] [address] [place] [address] Hematocrit Volume Fraction (Bld) 29.1 % Low 40.0-52.0 [facility] Comment on above: Performed By: #### H EMDF, PT, BMP3M, PHOS3, MG3, CK3 #### [address] #### VD25H #### [facility] [address] [facility] [place] [address] Hemoglobin mass conc (Bld) 9.8 g/dL Low 13.0-18.0 [facility] Comment on above: Performed By: #### H EMDF, PT, BMP3M, PHOS3, MG3, CK3 #### [address] #### VD25H #### [facility] [address] [facility] [place] [address] MCH Entitic mass (RBC) 28.4 pg Normal 26.0-34.0 [facility] Comment on above: Performed By: #### H EMDF, PT, BMP3M, PHOS3, MG3, CK3 #### [address] #### VD25H #### [facility] [address] [place] [address] MCHC mass conc (RBC) 33.5 % Normal 32.0-36.0 [facility] Comment on above: Performed By: #### H EMDF, PT, BMP3M, PHOS3, MG3, CK3 #### [address] #### VD25H #### [facility] [address] [facility] [place] [address] MCV Entitic volume (RBC) 84.7 fL Normal 80.0-98.0 [facility] Comment on above: Performed By: #### H EMDF, PT, BMP3M, PHOS3, MG3, CK3 #### [address] #### VD25H #### [facility] [address] [place] [address] Platelet mean volume Entitic volume (Bld) 8.1 fL Normal 7.4-10.4 [facility] Comment on above: Performed By: #### H EMDF, PT, BMP3M, PHOS3, MG3, CK3 #### [address] #### VD25H #### [facility] [address] [place] [address] Platelets #/vol (Bld) 281 10*3/uL Normal 140-440 [facility] Comment on above: Performed By: #### H EMDF, PT, BMP3M, PHOS3, MG3, CK3 #### [address] #### VD25H #### [facility] [address] [place] [address] RBC #/vol (Bld) 3.44 10*6/uL Low 4.40-5.90 [facility] Comment on above: Performed By: #### H EMDF, PT, BMP3M, PHOS3, MG3, CK3 #### [address] #### VD25H #### [facility] [address] [place] [address] WBC #/vol (Bld) 8.3 10*3/uL Normal 3.6-10.7 [facility] Comment on above: Performed By: #### H EMDF, PT, BMP3M, PHOS3, MG3, CK3 #### [address] #### VD25H #### [facility] [address] [place] [address] Hep B Surface Abon 9 Hep B Surface Ab < 8.0 Normal [facility] Comment on above: Result Comment: Inte rpretation: <8.0 Non-Reactive 8.0-11.9 Equivocal >= 12.0 Ab Detected Performed By: #### H EMDF, PT, BMP3M, PHOS3, MG3, CK3 #### [address] #### VD25H #### [facility] [address] [place] [address] Hep B Surface Agon 9 Hep B Surface Ag NOT DETECTED Normal Not-Detected [facility] Comment on above: Performed By: #### H EMDF, PT, BMP3M, PHOS3, MG3, CK3 #### [facility] [address] [place], [place] #### VD25H #### [facility] [address] [place] [address] Hep C Antibodyon 08-17-2018 Hep C Antibody NOT DETECTED Normal Not-Detected [facility] Comment on above: Result Comment: Bharti ents with DETECTED Hepatitis C Ab results should have a new specimen submitted for supplemental testing with a Hepatitis C Quantitative RNA assay (viral load), if clinically indicated. Performed By: #### H EMDF, PT, BMP3M, PHOS3, MG3, CK3 #### [facility] [address] [place], [place] #### VD25H #### [facility] [address] [place] [address] Hepatic Functionon 9 ALP enzyme act/vol 116 U/L Normal 38-126 [facility] Comment on above: Performed By: #### H EMDF, PT, BMP3M, PHOS3, MG3, CK3 #### [facility] [address] [place], [place] #### VD25H #### [facility] [address] [place] [address] ALT enzyme act/vol 370 U/L High 13-69 [facility] Comment on above: Performed By: #### H EMDF, PT, BMP3M, PHOS3, MG3, CK3 #### [facility] [address] [place], [place] #### VD25H #### [facility] [address] [place] [address] AST enzyme act/vol 150 U/L High 15-46 [facility] Comment on above: Performed By: #### H EMDF, PT, BMP3M, PHOS3, MG3, CK3 #### [address] [place], [place] #### VD25H #### [facility] [address] [place] [address] Bilirubin mass conc 0.7 mg/dL Normal 0.2-1.3 [facility] Comment on above: Performed By: #### H EMDF, PT, BMP3M, PHOS3, MG3, CK3 #### [place] [address] [place], [place] #### VD25H #### [facility] [address] [place] [address] Bilirubin.direct mass conc 0.0 mg/dL Normal 0.0-0.3 [facility] Comment on above: Performed By: #### H EMDF, PT, BMP3M, PHOS3, MG3, CK3 #### [address] #### VD25H #### [facility] [address] [place] [address] Protein mass conc 5.4 g/dL Low 6.3-8.2 [facility] Comment on above: Performed By: #### H EMDF, PT, BMP3M, PHOS3, MG3, CK3 #### [address] #### VD25H #### [facility] [address] [place] [address] Albumin mass conc 2.5 g/dL Low 3.5-5.0 [facility] Comment on above: Performed By: #### H EMDF, PT, BMP3M, PHOS3, MG3, CK3 #### [address] #### VD25H #### [facility] [address] [place] [address] Iron AND TIBCon 08-17-2018 Saturation 14 % Low 15-50 [facility] Comment on above: Performed By: #### H EMDF, PT, BMP3M, PHOS3, MG3, CK3 #### [address] [place] #### VD25H #### [facility] [address] [place] [address] Total Iron Binding Cap. 166 ug/dL Low 261-497 [facility] Comment on above: Performed By: #### H EMDF, PT, BMP3M, PHOS3, MG3, CK3 #### [address] [place] #### VD25H #### [facility] [address] [place] [address] Iron, Total 23 ug/dL Low 49-181 [facility] Comment on above: Performed By: #### H EMDF, PT, BMP3M, PHOS3, MG3, CK3 #### [address] #### VD25H #### [place] [address] [place] [address] Magnesiumon 08-17-2018 Magnesium mass conc 2.0 mg/dL Normal 1.6-2.3 [facility] Comment on above: Performed By: #### H EMDF, PT, BMP3M, PHOS3, MG3, CK3 #### [address] #### VD25H #### [facility] [address] [place] [address] Manual Diffon 08-17-2018 Abs Baso Cnt 0.1 10*3/uL Normal 0.0-0.2 [facility] Comment on above: Performed By: #### H EMDF, PT, BMP3M, PHOS3, MG3, CK3 #### [address] [place] #### VD25H #### [place] [address] [place] [place] [address] Abs Neutrophile Cnt 5.6 10*3/uL Normal 2.2-8.2 [facility] Comment on above: Performed By: #### H EMDF, PT, BMP3M, PHOS3, MG3, CK3 #### [facility] [address] [place] #### VD25H #### [facility] [address] [place] [address] Anisocytosis Ql (Bld) Slight Normal [facility] Comment on above: Performed By: #### H EMDF, PT, BMP3M, PHOS3, MG3, CK3 #### [address] [place] #### VD25H #### [facility] [address] [place] [address] Bands 9 % High 0-3 [facility] Comment on above: Performed By: #### H EMDF, PT, BMP3M, PHOS3, MG3, CK3 #### [address] [address] [place], [place] #### VD25H #### [facility] [address] [place] [address] Basophils/100 WBC (Bld) 1 % Normal 0-2 [facility] Comment on above: Performed By: #### H EMDF, PT, BMP3M, PHOS3, MG3, CK3 #### [place] [address] [place] #### VD25H #### [facility] [address] [place] [address] Eosinophils #/vol (Bld) 0.2 10*3/uL Normal 0.0-0.5 [facility] Comment on above: Performed By: #### H EMDF, PT, BMP3M, PHOS3, MG3, CK3 #### [place] [address] [place] #### VD25H #### [facility] [address] [place] [address] Eosinophils/100 WBC (Bld) 3 % Normal 1-6 [facility] Comment on above: Performed By: #### H EMDF, PT, BMP3M, PHOS3, MG3, CK3 #### [address] [place] #### VD25H #### [facility] [address] [place] [address] Lymphocytes #/vol (Bld) 1.5 10*3/uL Normal 1.1-4.5 [facility] Comment on above: Performed By: #### H EMDF, PT, BMP3M, PHOS3, MG3, CK3 #### [place] [address] [place] #### VD25H #### [facility] [address] [place] [address] Lymphocytes/100 WBC (Bld) 18 % Low 20-40 [facility] Comment on above: Performed By: #### H EMDF, PT, BMP3M, PHOS3, MG3, CK3 #### [address] #### VD25H #### [facility] [address] [place] [address] Monocytes #/vol (Bld) 0.4 10*3/uL Normal 0.2-1.1 [facility] Comment on above: Performed By: #### H EMDF, PT, BMP3M, PHOS3, MG3, CK3 #### [address] #### VD25H #### [facility] [address] [place] [address] Monocytes/100 WBC (Bld) 5 % Normal 2-10 [facility] Comment on above: Performed By: #### H EMDF, PT, BMP3M, PHOS3, MG3, CK3 #### [address] #### VD25H #### [facility] [address] [place] [address] Myelocytes 5 % Abnormal <1 [facility] Comment on above: Performed By: #### H EMDF, PT, BMP3M, PHOS3, MG3, CK3 #### [address] [place] #### VD25H #### [facility] [address] [place] [address] Polychromasia Slight Normal [facility] Comment on above: Performed By: #### H EMDF, PT, BMP3M, PHOS3, MG3, CK3 #### [facility] [address] [place] #### VD25H #### [facility] [address] [place] [address] RBC morphology finding Nom (Bld) ABNORMAL Normal [facility] Comment on above: Performed By: #### H EMDF, PT, BMP3M, PHOS3, MG3, CK3 #### [place] [address] [place] #### VD25H #### [facility] [address] [place] [address] Seg Neutrophils 59 % Normal 40-80 [facility] Comment on above: Performed By: #### H EMDF, PT, BMP3M, PHOS3, MG3, CK3 #### [place] [address] [place] #### VD25H #### [facility] [address] [place] [address] Toxic Granulation Slight Normal [facility] Comment on above: Performed By: #### H EMDF, PT, BMP3M, PHOS3, MG3, CK3 #### [place] [address] [place] #### VD25H #### [facility] [address] [place] [address] Cells counted 100 Normal [facility] Comment on above: Performed By: #### H EMDF, PT, BMP3M, PHOS3, MG3, CK3 #### [place] [address] [place] #### VD25H #### [facility] [address] [place] [address] Phosphoruson 08-17-2018 Phosphate mass conc 3.9 mg/dL Normal 2.5-4.5 [facility] Comment on above: Performed By: #### H EMDF, PT, BMP3M, PHOS3, MG3, CK3 #### [facility] [address] [place] #### VD25H #### [facility] [address] [place] [address] Triglycerideon 08-17-2018 Triglyceride mass conc 104 mg/dL Normal <150 [facility] Comment on above: Performed By: #### H EMDF, PT, BMP3M, PHOS3, MG3, CK3 #### [place] [address] [place], [place] #### VD25H #### [facility] [address] [place] [address] Vitamin B12on 08-17-2018 Cobalamin (Vitamin B12) mass conc 615 pg/mL Normal 239-931 [facility] Comment on above: Performed By: #### H EMDF, PT, BMP3M, PHOS3, MG3, CK3 #### [place] [address] [place], [place] #### VD25H #### [facility] [address] [place] [address] Albumin, Serumon 08-16-2018 Albumin mass conc 2.6 g/dL Low 3.5-5.0 [facility] Comment on above: Performed By: #### H EMDF, PT, BMP3M, PHOS3, MG3, CK3 #### [place] [address] [place] #### VD25H #### [facility] [address] [place] [address] CR Abdomen APon 08-16-2018 CR Abdomen AP Patient Name: KATHYA HOOPER Diagnostic Radiology Exam Date/Time 08/16/2018 10:17:24 EDT Exam CR Abdomen AP Ordering Physician [id number] ESPINOSA Accession Number [id number] CPT4 Codes 53094 () Reason For Exam dobhoff placement Report [...] Transcribed Date and Time: 08/16/2018 12:33 Normal [facility] CR Chest Portableon 08-17-19 19 CR Chest Portable Patient Name: KATHYA HOOPER Diagnostic Radiology Exam Date/Time 08/16/2018 10:17:24 EDT Exam CR Chest Portable Ordering Physician JOEY CABALLERO Accession Number [id number] CPT4 Codes 34237 () Reason For Exam dyspnea Report PORTABLE [...] Transcribed Date and Time: 08/16/2018 12:31 Normal [facility] Comp Panel with Mg Reflexon 08-16-2018 Calcium mass conc 7.8 mg/dL Low 8.4-10.4 [facility] Comment on above: Performed By: #### H EMDF, PT, BMP3M, PHOS3, MG3, CK3 #### [facility] [address] [place] #### VD25H #### [facility] [address] [place] [address] Glucose mass conc 114 mg/dL High 70-100 [facility] Comment on above: Performed By: #### H EMDF, PT, BMP3M, PHOS3, MG3, CK3 #### [place] [address] [facility], [place] #### VD25H #### [facility] [address] [place] [address] ALP enzyme act/vol 114 U/L Normal 38-126 [facility] Comment on above: Performed By: #### H EMDF, PT, BMP3M, PHOS3, MG3, CK3 #### [facility] [address] [facility], [place] #### VD25H #### [facility] [address] [place] [address] ALT enzyme act/vol 539 U/L High 13-69 [facility] Comment on above: Performed By: #### H EMDF, PT, BMP3M, PHOS3, MG3, CK3 #### [facility] [address] [facility], [place] #### VD25H #### [facility] [address] [place] [address] Anion gap molar conc 4 Normal [facility] Comment on above: Performed By: #### H EMDF, PT, BMP3M, PHOS3, MG3, CK3 #### [facility] [address] [facility], [place] #### VD25H #### [facility] [address] [place] [address] AST enzyme act/vol 460 U/L High 15-46 [facility] Comment on above: Performed By: #### H EMDF, PT, BMP3M, PHOS3, MG3, CK3 #### [address] [place] #### VD25H #### [facility] [address] [place] [address] Bilirubin mass conc 0.7 mg/dL Normal 0.2-1.3 [facility] Comment on above: Performed By: #### H EMDF, PT, BMP3M, PHOS3, MG3, CK3 #### [address] #### VD25H #### [place] [address] [place] [address] CO2 molar conc 25 mmol/L Normal 22-30 [facility] Comment on above: Performed By: #### H EMDF, PT, BMP3M, PHOS3, MG3, CK3 #### [address] #### VD25H #### [facility] [address] [place] [address] Creatinine mass conc 0.71 mg/dL Normal 0.52-1.25 [facility] Comment on above: Performed By: #### H EMDF, PT, BMP3M, PHOS3, MG3, CK3 #### [address] #### VD25H #### [facility] [address] [place] [address] GFR/1.73 sq M predicted among blacks MDRD vol rate/area (S/P/Bld) mL/min/{1.73_m2} Normal >60 [facility] Comment on above: Performed By: #### H EMDF, PT, BMP3M, PHOS3, MG3, CK3 #### [address] #### VD25H #### [facility] [address] [place] [address] GFR/1.73 sq M predicted among non-blacks MDRD vol rate/area (S/P/Bld) mL/min/{1.73_m2} Normal >60 [facility] Comment on above: Result Comment: Sour ce- MDRD equation with creatinine calibration to IDMS(NKDEP) eGFR not recommended for drug dose adjustment Performed By: #### H EMDF, PT, BMP3M, PHOS3, MG3, CK3 #### [place] [address] [facility], [place] #### VD25H #### [facility] [address] [place] [address] Protein mass conc 5.1 g/dL Low 6.3-8.2 [facility] Comment on above: Performed By: #### H EMDF, PT, BMP3M, PHOS3, MG3, CK3 #### [place] [address] [facility], [place] #### VD25H #### [facility] [address] [place] [address] Urea nitrogen mass conc 22 mg/dL High 7-20 [facility] Comment on above: Performed By: #### H EMDF, PT, BMP3M, PHOS3, MG3, CK3 #### [facility] [address] [place] #### VD25H #### [facility] [address] [place] [address] Chloride molar conc 102 mmol/L Normal 98-107 [facility] Comment on above: Performed By: #### H EMDF, PT, BMP3M, PHOS3, MG3, CK3 #### [place] [address] [facility], [place] #### VD25H #### [facility] [address] [place] [address] Potassium molar conc 3.1 mmol/L Low 3.5-5.1 [facility] Comment on above: Performed By: #### H EMDF, PT, BMP3M, PHOS3, MG3, CK3 #### [email or web address] [facility] [address] [place], [place] #### VD25H #### [email or web address] [facility] [address] [place] [address] Sodium molar conc 131 mmol/L Low 135-145 [facility] Comment on above: Performed By: #### H EMDF, PT, BMP3M, PHOS3, MG3, CK3 #### [employer] [facility] [address] [place] [address] #### VD25H #### [employer] [facility] [address] [place] [address] Albumin mass conc 2.4 g/dL Low 3.5-5.0 [facility] Comment on above: Performed By: #### H EMDF, PT, BMP3M, PHOS3, MG3, CK3 #### [employer] [address] #### VD25H #### [email or web address] [facility] [address] [place] [address] Glucose,Bedsideon 08-16-2018 Glucose mass conc 100 mg/dL Normal 70-100 [facility] Comment on above: Result Comment: Test performed by glucose meter. Results may be 10%-15% lower than serum/plasma values. (CLIA ID [id number]) Performed By: #### H EMDF, PT, BMP3M, PHOS3, MG3, CK3 #### [email or web address] [facility] [place], [place] #### VD25H #### [employer] [facility] [address] [place] [address] Glucose mass conc 98 mg/dL Normal 70-100 [facility] Comment on above: Result Comment: Test performed by glucose meter. Results may be 10%-15% lower than serum/plasma values. (CLIA ID [id number]) Performed By: #### H EMDF, PT, BMP3M, PHOS3, MG3, CK3 #### [address] #### VD25H #### [facility] [address] [place] [address] Glucose mass conc 110 mg/dL High 70-100 [facility] Comment on above: Result Comment: Test performed by glucose meter. Results may be 10%-15% lower than serum/plasma values. (CLIA ID [id number]) Performed By: #### H EMDF, PT, BMP3M, PHOS3, MG3, CK3 #### [address] #### VD25H #### [facility] [address] [place] [address] Glucose mass conc 113 mg/dL High 70-100 [facility] Comment on above: Result Comment: Test performed by glucose meter. Results may be 10%-15% lower than serum/plasma values. (CLIA ID [id number]) Performed By: #### H EMDF, PT, BMP3M, PHOS3, MG3, CK3 #### [address] #### VD25H #### [facility] [address] [place] [address] Glucose mass conc 126 mg/dL High 70-100 [facility] Comment on above: Result Comment: Test performed by glucose meter. Results may be 10%-15% lower than serum/plasma values. (CLIA ID [id number]) Performed By: #### H EMDF, PT, BMP3M, PHOS3, MG3, CK3 #### [address] #### VD25H #### [facility] [address] [place] [address] Hemogram w/ Autodiffon 08-16 Abs Baso Cnt 0.0 10*3/uL Normal 0.0-0.2 [facility] Comment on above: Performed By: #### H EMDF, PT, BMP3M, PHOS3, MG3, CK3 #### [facility] [address] [place], [place] #### VD25H #### [facility] [address] [place] [address] Abs Neutrophile Cnt 7.7 10*3/uL High 1.8-7.0 [facility] Comment on above: Performed By: #### H EMDF, PT, BMP3M, PHOS3, MG3, CK3 #### [place] [address] [address] [place], [place] #### VD25H #### [facility] [address] [place] [address] Basophils/100 WBC (Bld) 0.5 % Normal 0.0-2.0 [facility] Comment on above: Performed By: #### H EMDF, PT, BMP3M, PHOS3, MG3, CK3 #### [address] #### VD25H #### [facility] [address] [place] [address] Eosinophils #/vol (Bld) 0.1 10*3/uL Normal 0.0-0.5 [facility] Comment on above: Performed By: #### H EMDF, PT, BMP3M, PHOS3, MG3, CK3 #### [address] #### VD25H #### [facility] [address] [place] [address] Eosinophils/100 WBC (Bld) 1.5 % Normal 1.0-6.0 [facility] Comment on above: Performed By: #### H EMDF, PT, BMP3M, PHOS3, MG3, CK3 #### [address] #### VD25H #### [facility] [address] [place] [address] Erythrocyte distribution width Ratio (RBC) 14.4 % Normal 11.5-14.5 [facility] Comment on above: Performed By: #### H EMDF, PT, BMP3M, PHOS3, MG3, CK3 #### [address] #### VD25H #### [facility] [address] [place] [address] Granulocytes/100 WBC (Bld) 79.7 % Normal 40.0-80.0 [facility] Comment on above: Performed By: #### H EMDF, PT, BMP3M, PHOS3, MG3, CK3 #### [address] [place], [place] #### VD25H #### [facility] [address] [place] [address] Hematocrit Volume Fraction (Bld) 27.1 % Low 40.0-52.0 [facility] Comment on above: Performed By: #### H EMDF, PT, BMP3M, PHOS3, MG3, CK3 #### [address] #### VD25H #### [facility] [address] [place] [address] Hemoglobin mass conc (Bld) 9.2 g/dL Low 13.0-18.0 [facility] Comment on above: Performed By: #### H EMDF, PT, BMP3M, PHOS3, MG3, CK3 #### [address] #### VD25H #### [facility] [address] [place] [address] Lymphocytes #/vol (Bld) 1.0 10*3/uL Normal 1.0-4.3 [facility] Comment on above: Performed By: #### H EMDF, PT, BMP3M, PHOS3, MG3, CK3 #### [address] #### VD25H #### [facility] [address] [place] [address] Lymphocytes/100 WBC (Bld) 10.0 % Low 20.0-40.0 [facility] Comment on above: Performed By: #### H EMDF, PT, BMP3M, PHOS3, MG3, CK3 #### [address] [place] #### VD25H #### [facility] [address] [place] [address] MCH Entitic mass (RBC) 28.5 pg Normal 26.0-34.0 [facility] Comment on above: Performed By: #### H EMDF, PT, BMP3M, PHOS3, MG3, CK3 #### [address] #### VD25H #### [facility] [address] [place] [address] MCHC mass conc (RBC) 33.8 % Normal 32.0-36.0 [facility] Comment on above: Performed By: #### H EMDF, PT, BMP3M, PHOS3, MG3, CK3 #### [address] #### VD25H #### [facility] [address] [place] [address] MCV Entitic volume (RBC) 84.4 fL Normal 80.0-98.0 [facility] Comment on above: Performed By: #### H EMDF, PT, BMP3M, PHOS3, MG3, CK3 #### [address] #### VD25H #### [facility] [address] [facility] [place] [address] Monocytes #/vol (Bld) 0.8 10*3/uL Normal 0.0-0.8 [facility] Comment on above: Performed By: #### H EMDF, PT, BMP3M, PHOS3, MG3, CK3 #### [address] #### VD25H #### [facility] [address] [place] [address] Monocytes/100 WBC (Bld) 8.3 % Normal 2.0-10.0 [facility] Comment on above: Performed By: #### H EMDF, PT, BMP3M, PHOS3, MG3, CK3 #### [facility] [address] [place], [place] #### VD25H #### [facility] [address] [place] [address] Platelet mean volume Entitic volume (Bld) 8.4 fL Normal 7.4-10.4 [facility] Comment on above: Performed By: #### H EMDF, PT, BMP3M, PHOS3, MG3, CK3 #### [address] [place], [place] #### VD25H #### [facility] [address] [place] [address] Platelets #/vol (Bld) 245 10*3/uL Normal 140-440 [facility] Comment on above: Performed By: #### H EMDF, PT, BMP3M, PHOS3, MG3, CK3 #### [address] [place], [place] #### VD25H #### [facility] [address] [place] [address] RBC #/vol (Bld) 3.21 10*6/uL Low 4.40-5.90 [facility] Comment on above: Performed By: #### H EMDF, PT, BMP3M, PHOS3, MG3, CK3 #### [facility] [address] [place], [place] #### VD25H #### [facility] [address] [place] [address] WBC #/vol (Bld) 9.7 10*3/uL Normal 3.6-10.7 [facility] Comment on above: Performed By: #### H EMDF, PT, BMP3M, PHOS3, MG3, CK3 #### [address] #### VD25H #### [facility] [address] [place] [address] Magnesiumon 08-16-2018 Magnesium mass conc 2.1 mg/dL Normal 1.6-2.3 [facility] Comment on above: Performed By: #### H EMDF, PT, BMP3M, PHOS3, MG3, CK3 #### [address] #### VD25H #### [facility] [address] [place] [address] Phosphoruson 08-16-2018 Phosphate mass conc 4.4 mg/dL Normal 2.5-4.5 [facility] Comment on above: Performed By: #### H EMDF, PT, BMP3M, PHOS3, MG3, CK3 #### [address] #### VD25H #### [address] [place] [address] Potassiumon 08-16-2018 Potassium molar conc 3.5 mmol/L Normal 3.5-5.1 [facility] Comment on above: Performed By: #### H EMDF, PT, BMP3M, PHOS3, MG3, CK3 #### [address] #### VD25H #### [address] [place] [address] Procalcitoninon 08-16-2018 Protein mass conc 3.10 ng/mL Abnormal <0.10 [facility] Comment on above: Performed By: #### H EMDF, PT, BMP3M, PHOS3, MG3, CK3 #### [address] #### VD25H #### [place] [address] [place] [address] Prothrombin Timeon 9 INR Coag RelTime (PPP) 1.1 Normal 0.9-1.1 [facility] Comment on above: Result Comment: Yefri [...] EMDF, PT, BMP3M, PHOS3, MG3, CK3 #### [facility] [address] [place] [address] #### VD25H #### [email or web address] [facility] [address] [place] [address] Prothrombin time (PT) Coag time (PPP) 11.8 s Normal 9.0-12.0 [facility] Comment on above: Result Comment: . Performed By: #### H EMDF, PT, BMP3M, PHOS3, MG3, CK3 #### [facility] [address] [place] [address] #### VD25H #### [facility] [address] [place] [address] US Abdomen Limitedon 019 US Abdomen Limited Patient Name: KATHYA HOOPER Ultrasound Exam Date/Time 08/16/2018 19:12:00 EDT Exam US Abdomen Limited Ordering Physician [id number] ESPINOSA Accession Number [id number] CPT4 Codes 23198 () Reason For Exam elevated transaminases Report [...] Transcribed Date and Time: 08/16/2018 7:26 Normal [facility] Glucose,Bedsideon 08-15-2018 Glucose mass conc 98 mg/dL Normal 70-100 [facility] Comment on above: Result Comment: Test performed by glucose meter. Results may be 10%-15% lower than serum/plasma values. (CLIA ID [id number]) Performed By: #### H EMDF, PT, BMP3M, PHOS3, MG3, CK3 #### [facility] [address] [place], [place] #### VD25H #### [facility] [address] [place] [address] Procalcitoninon 08-15-2018 Interpretation See Below Normal [facility] Comment on above: Result Comment: PCT <0.50 = Low risk of severe sepsis and/or septic shock. PCT >2.00 = High risk of severe sepsis and/or septic shock. Performed By: #### H EMDF, PT, BMP3M, PHOS3, MG3, CK3 #### [facility] [address] [place], [place] #### VD25H #### [facility] [address] [place] [address] CULTURE FUNGUSon 08-13-2018 CULTURE FUNGUS CULTURE FUNGUS --> Status: F No fungus isolated after 21 days. Normal [facility] Comment on above: Order Comment: Speci men Source Comment:Body Fluid Performed By: #### H EMDF, PT, BMP3M, PHOS3, MG3, CK3 #### [facility] [address] [place], [place] #### VD25H #### [facility] [address] [place] [address] Hemogram w/ Autodiffon 08-01 Abs Baso Cnt 0.2 10*3/uL Normal 0.0-0.2 [facility] Comment on above: Performed By: #### H EMDF, PT, BMP3M, PHOS3, MG3, CK3 #### [address] #### VD25H #### [facility] [address] [place] [address] Abs Neutrophile Cnt 14.3 10*3/uL High 1.8-7.0 [facility] Comment on above: Performed By: #### H EMDF, PT, BMP3M, PHOS3, MG3, CK3 #### [address] #### VD25H #### [place] [address] [place] [address] Basophils/100 WBC (Bld) 1.0 % Normal 0.0-2.0 [facility] Comment on above: Performed By: #### H EMDF, PT, BMP3M, PHOS3, MG3, CK3 #### [address] #### VD25H #### [place] [address] [place] [address] Eosinophils #/vol (Bld) 0.4 10*3/uL Normal 0.0-0.5 [facility] Comment on above: Performed By: #### H EMDF, PT, BMP3M, PHOS3, MG3, CK3 #### [address] #### VD25H #### [place] [address] [place] [address] Eosinophils/100 WBC (Bld) 2.3 % Normal 1.0-6.0 [facility] Comment on above: Performed By: #### H EMDF, PT, BMP3M, PHOS3, MG3, CK3 #### [address] [place], [place] #### VD25H #### [facility] [address] [place] [address] Erythrocyte distribution width Ratio (RBC) 13.7 % Normal 11.5-14.5 [facility] Comment on above: Performed By: #### H EMDF, PT, BMP3M, PHOS3, MG3, CK3 #### [address] [place] #### VD25H #### [facility] [address] [place] [address] Granulocytes/100 WBC (Bld) 82.1 % High 40.0-80.0 [facility] Comment on above: Performed By: #### H EMDF, PT, BMP3M, PHOS3, MG3, CK3 #### [address] #### VD25H #### [facility] [address] [place] [address] Hematocrit Volume Fraction (Bld) 31.2 % Low 40.0-52.0 [facility] Comment on above: Performed By: #### H EMDF, PT, BMP3M, PHOS3, MG3, CK3 #### [address] #### VD25H #### [facility] [address] [place] [address] Hemoglobin mass conc (Bld) 10.5 g/dL Low 13.0-18.0 [facility] Comment on above: Performed By: #### H EMDF, PT, BMP3M, PHOS3, MG3, CK3 #### [address] [address] [place], [place] #### VD25H #### [facility] [address] [place] [address] Lymphocytes #/vol (Bld) 1.6 10*3/uL Normal 1.0-4.3 [facility] Comment on above: Performed By: #### H EMDF, PT, BMP3M, PHOS3, MG3, CK3 #### [address] #### VD25H #### [facility] [address] [place] [address] Lymphocytes/100 WBC (Bld) 9.1 % Low 20.0-40.0 [facility] Comment on above: Performed By: #### H EMDF, PT, BMP3M, PHOS3, MG3, CK3 #### [address] [place] #### VD25H #### [facility] [address] [place] [address] MCH Entitic mass (RBC) 28.9 pg Normal 26.0-34.0 [facility] Comment on above: Performed By: #### H EMDF, PT, BMP3M, PHOS3, MG3, CK3 #### [address] #### VD25H #### [facility] [address] [place] [address] MCHC mass conc (RBC) 33.7 % Normal 32.0-36.0 [facility] Comment on above: Performed By: #### H EMDF, PT, BMP3M, PHOS3, MG3, CK3 #### [address] #### VD25H #### [facility] [address] [place] [address] MCV Entitic volume (RBC) 85.5 fL Normal 80.0-98.0 [facility] Comment on above: Performed By: #### H EMDF, PT, BMP3M, PHOS3, MG3, CK3 #### [address] #### VD25H #### [facility] [address] [place] [address] Monocytes #/vol (Bld) 1.0 10*3/uL High 0.0-0.8 [facility] Comment on above: Performed By: #### H EMDF, PT, BMP3M, PHOS3, MG3, CK3 #### [facility] [address] [place], [place] #### VD25H #### [facility] [address] [place] [address] Monocytes/100 WBC (Bld) 5.5 % Normal 2.0-10.0 [facility] Comment on above: Performed By: #### H EMDF, PT, BMP3M, PHOS3, MG3, CK3 #### [address] [place] #### VD25H #### [facility] [address] [place] [address] Platelet mean volume Entitic volume (Bld) 8.0 fL Normal 7.4-10.4 [facility] Comment on above: Performed By: #### H EMDF, PT, BMP3M, PHOS3, MG3, CK3 #### [address] [facility], [place] #### VD25H #### [facility] [address] [place] [address] Platelets #/vol (Bld) 425 10*3/uL Normal 140-440 [facility] Comment on above: Performed By: #### H EMDF, PT, BMP3M, PHOS3, MG3, CK3 #### [place] [address] [facility], [place] #### VD25H #### [facility] [address] [place] [address] RBC #/vol (Bld) 3.65 10*6/uL Low 4.40-5.90 [facility] Comment on above: Performed By: #### H EMDF, PT, BMP3M, PHOS3, MG3, CK3 #### [address], [place] #### VD25H #### [facility] [address] [place] [address] WBC #/vol (Bld) 17.4 10*3/uL High 3.6-10.7 [facility] Comment on above: Performed By: #### H EMDF, PT, BMP3M, PHOS3, MG3, CK3 #### [address] #### VD25H #### [facility] [address] [place] [address] Basic Metabolic Panelon 04-0 Calcium mass conc 8.3 mg/dL Low 8.4-10.4 [facility] Comment on above: Performed By: #### H EMDF, PT, BMP3M, PHOS3, MG3, CK3 #### [address] #### VD25H #### [facility] [address] [place] [address] Glucose mass conc 114 mg/dL High 70-100 [facility] Comment on above: Performed By: #### H EMDF, PT, BMP3M, PHOS3, MG3, CK3 #### [address] #### VD25H #### [facility] [address] [place] [address] Anion gap molar conc 10 Normal [facility] Comment on above: Performed By: #### H EMDF, PT, BMP3M, PHOS3, MG3, CK3 #### [address] [place] #### VD25H #### [facility] [address] [place] [address] CO2 molar conc 34 mmol/L High 22-30 [facility] Comment on above: Performed By: #### H EMDF, PT, BMP3M, PHOS3, MG3, CK3 #### [address] #### VD25H #### [facility] [address] [place] [address] Creatinine mass conc 0.52 mg/dL Normal 0.52-1.25 [facility] Comment on above: Performed By: #### H EMDF, PT, BMP3M, PHOS3, MG3, CK3 #### [facility] [address] [place], [place] #### VD25H #### [facility] [address] [place] [address] GFR/1.73 sq M predicted among blacks MDRD vol rate/area (S/P/Bld) mL/min/{1.73_m2} Normal >60 [facility] Comment on above: Performed By: #### H EMDF, PT, BMP3M, PHOS3, MG3, CK3 #### [address] #### VD25H #### [facility] [address] [facility] [place] [address] GFR/1.73 sq M predicted among non-blacks MDRD vol rate/area (S/P/Bld) mL/min/{1.73_m2} Normal >60 [facility] Comment on above: Result Comment: Sour ce- MDRD equation with creatinine calibration to IDMS(NKDEP) eGFR not recommended for drug dose adjustment Performed By: #### H EMDF, PT, BMP3M, PHOS3, MG3, CK3 #### [address] #### VD25H #### [facility] [address] [place] [address] Urea nitrogen mass conc 23 mg/dL High 7-20 [facility] Comment on above: Performed By: #### H EMDF, PT, BMP3M, PHOS3, MG3, CK3 #### [address] #### VD25H #### [facility] [address] [place] [address] Chloride molar conc 95 mmol/L Low 98-107 [facility] Comment on above: Performed By: #### H EMDF, PT, BMP3M, PHOS3, MG3, CK3 #### [place] [address] [place] #### VD25H #### [facility] [address] [place] [address] Potassium molar conc 3.7 mmol/L Normal 3.5-5.1 [facility] Comment on above: Performed By: #### H EMDF, PT, BMP3M, PHOS3, MG3, CK3 #### [place] [place] #### VD25H #### [facility] [address] [place] [address] Sodium molar conc 139 mmol/L Normal 135-145 [facility] Comment on above: Performed By: #### H EMDF, PT, BMP3M, PHOS3, MG3, CK3 #### [address] #### VD25H #### [place] [address] [place] [address] Hemogram w/ Autodiffon 07-31 Abs Baso Cnt 0.2 10*3/uL Normal 0.0-0.2 [facility] Comment on above: Performed By: #### H EMDF, PT, BMP3M, PHOS3, MG3, CK3 #### [address] #### VD25H #### [place] [address] [place] [address] Abs Neutrophile Cnt 13.4 10*3/uL High 1.8-7.0 [facility] Comment on above: Performed By: #### H EMDF, PT, BMP3M, PHOS3, MG3, CK3 #### [address] [place], [place] #### VD25H #### [place] [address] [place] [address] Basophils/100 WBC (Bld) 1.0 % Normal 0.0-2.0 [facility] Comment on above: Performed By: #### H EMDF, PT, BMP3M, PHOS3, MG3, CK3 #### [address] #### VD25H #### [facility] [address] [place] [address] Eosinophils #/vol (Bld) 0.5 10*3/uL Normal 0.0-0.5 [facility] Comment on above: Performed By: #### H EMDF, PT, BMP3M, PHOS3, MG3, CK3 #### [address] #### VD25H #### [facility] [address] [place] [address] Eosinophils/100 WBC (Bld) 3.1 % Normal 1.0-6.0 [facility] Comment on above: Performed By: #### H EMDF, PT, BMP3M, PHOS3, MG3, CK3 #### [address] #### VD25H #### [facility] [address] [place] [address] Erythrocyte distribution width Ratio (RBC) 14.0 % Normal 11.5-14.5 [facility] Comment on above: Performed By: #### H EMDF, PT, BMP3M, PHOS3, MG3, CK3 #### [address] #### VD25H #### [facility] [address] [place] [address] Granulocytes/100 WBC (Bld) 80.6 % High 40.0-80.0 [facility] Comment on above: Performed By: #### H EMDF, PT, BMP3M, PHOS3, MG3, CK3 #### [address] #### VD25H #### [facility] [address] [place] [address] Hematocrit Volume Fraction (Bld) 32.3 % Low 40.0-52.0 [facility] Comment on above: Performed By: #### H EMDF, PT, BMP3M, PHOS3, MG3, CK3 #### [address] [place] #### VD25H #### [facility] [address] [place] [address] Hemoglobin mass conc (Bld) 10.8 g/dL Low 13.0-18.0 [facility] Comment on above: Performed By: #### H EMDF, PT, BMP3M, PHOS3, MG3, CK3 #### [address] #### VD25H #### [facility] [address] [place] [address] Lymphocytes #/vol (Bld) 1.6 10*3/uL Normal 1.0-4.3 [facility] Comment on above: Performed By: #### H EMDF, PT, BMP3M, PHOS3, MG3, CK3 #### [address] #### VD25H #### [facility] [address] [place] [address] Lymphocytes/100 WBC (Bld) 9.8 % Low 20.0-40.0 [facility] Comment on above: Performed By: #### H EMDF, PT, BMP3M, PHOS3, MG3, CK3 #### [address] #### VD25H #### [facility] [address] [place] [address] MCH Entitic mass (RBC) 28.9 pg Normal 26.0-34.0 [facility] Comment on above: Performed By: #### H EMDF, PT, BMP3M, PHOS3, MG3, CK3 #### [address] #### VD25H #### [facility] [address] [place] [address] MCHC mass conc (RBC) 33.6 % Normal 32.0-36.0 [facility] Comment on above: Performed By: #### H EMDF, PT, BMP3M, PHOS3, MG3, CK3 #### [address] [place], [place] #### VD25H #### [facility] [address] [place] [address] MCV Entitic volume (RBC) 86.1 fL Normal 80.0-98.0 [facility] Comment on above: Performed By: #### H EMDF, PT, BMP3M, PHOS3, MG3, CK3 #### [address] #### VD25H #### [facility] [address] [place] [address] Monocytes #/vol (Bld) 0.9 10*3/uL High 0.0-0.8 [facility] Comment on above: Performed By: #### H EMDF, PT, BMP3M, PHOS3, MG3, CK3 #### [address] #### VD25H #### [facility] [address] [place] [address] Monocytes/100 WBC (Bld) 5.5 % Normal 2.0-10.0 [facility] Comment on above: Performed By: #### H EMDF, PT, BMP3M, PHOS3, MG3, CK3 #### [address] #### VD25H #### [facility] [address] [place] [address] Platelet mean volume Entitic volume (Bld) 8.2 fL Normal 7.4-10.4 [facility] Comment on above: Performed By: #### H EMDF, PT, BMP3M, PHOS3, MG3, CK3 #### [address] #### VD25H #### [facility] [address] [place] [address] Platelets #/vol (Bld) 475 10*3/uL High 140-440 [facility] Comment on above: Performed By: #### H EMDF, PT, BMP3M, PHOS3, MG3, CK3 #### [facility] [address] [place], [place] #### VD25H #### [facility] [address] [place] [address] RBC #/vol (Bld) 3.75 10*6/uL Low 4.40-5.90 [facility] Comment on above: Performed By: #### H EMDF, PT, BMP3M, PHOS3, MG3, CK3 #### [address] #### VD25H #### [facility] [address] [place] [address] WBC #/vol (Bld) 16.6 10*3/uL High 3.6-10.7 [facility] Comment on above: Performed By: #### H EMDF, PT, BMP3M, PHOS3, MG3, CK3 #### [place] [address] [place], [place] #### [id number] #### [facility] [address] [place] [address] Magnesiumon 07-31-2018 Magnesium mass conc 2.4 mg/dL High 1.6-2.3 [facility] Comment on above: Performed By: #### H EMDF, PT, BMP3M, PHOS3, MG3, CK3 #### [address] [address] [address] [place], [place] #### [id number] #### [facility] [address] [place] [address] Phosphoruson 07-31-2018 Phosphate mass conc 4.5 mg/dL Normal 2.5-4.5 [facility] Comment on above: Performed By: #### H EMDF, PT, BMP3M, PHOS3, MG3, CK3 #### [address] [place], [place] #### VD25H #### [facility] [address] [place] [address] Basic Metabolic Panelon 04-0 Calcium mass conc 8.6 mg/dL Normal 8.4-10.4 [facility] Comment on above: Performed By: #### H EMDF, PT, BMP3M, PHOS3, MG3, CK3 #### [address] [place], [place] #### VD25H #### [facility] [address] [place] [address] Anion gap molar conc 8 Normal [facility] Comment on above: Performed By: #### H EMDF, PT, BMP3M, PHOS3, MG3, CK3 #### [address] #### VD25H #### [place] [address] [place] [address] CO2 molar conc 34 mmol/L High 22-30 [facility] Comment on above: Performed By: #### H EMDF, PT, BMP3M, PHOS3, MG3, CK3 #### [address] #### VD25H #### [facility] [address] [place] [address] Creatinine mass conc 0.56 mg/dL Normal 0.52-1.25 [facility] Comment on above: Performed By: #### H EMDF, PT, BMP3M, PHOS3, MG3, CK3 #### [address] #### VD25H #### [place] [address] [place] [address] GFR/1.73 sq M predicted among blacks MDRD vol rate/area (S/P/Bld) mL/min/{1.73_m2} Normal >60 [facility] Comment on above: Performed By: #### H EMDF, PT, BMP3M, PHOS3, MG3, CK3 #### [facility] [address] [facility], [place] #### VD25H #### [facility] [address] [place] [address] GFR/1.73 sq M predicted among non-blacks MDRD vol rate/area (S/P/Bld) mL/min/{1.73_m2} Normal >60 [facility] Comment on above: Result Comment: Sour ce- MDRD equation with creatinine calibration to IDMS(NKDEP) eGFR not recommended for drug dose adjustment Performed By: #### H EMDF, PT, BMP3M, PHOS3, MG3, CK3 #### [address] [facility], [place] #### VD25H #### [facility] [address] [place] [address] Glucose mass conc 121 mg/dL High 70-100 [facility] Comment on above: Performed By: #### H EMDF, PT, BMP3M, PHOS3, MG3, CK3 #### [address] [facility], [place] #### VD25H #### [facility] [address] [place] [address] Urea nitrogen mass conc 29 mg/dL High 7-20 [facility] Comment on above: Performed By: #### H EMDF, PT, BMP3M, PHOS3, MG3, CK3 #### [facility] [address] [facility] [place] #### VD25H #### [facility] [address] [place] [address] Chloride molar conc 99 mmol/L Normal 98-107 [facility] Comment on above: Performed By: #### H EMDF, PT, BMP3M, PHOS3, MG3, CK3 #### [address] [facility] [place] #### VD25H #### [facility] [address] [place] [address] Potassium molar conc 3.7 mmol/L Normal 3.5-5.1 [facility] Comment on above: Performed By: #### H EMDF, PT, BMP3M, PHOS3, MG3, CK3 #### [facility] [address] [place] [address] #### VD25H #### [facility] [address] [place] [address] Sodium molar conc 141 mmol/L Normal 135-145 [facility] Comment on above: Performed By: #### H EMDF, PT, BMP3M, PHOS3, MG3, CK3 #### [facility] [address] [place] [address] #### VD25H #### [facility] [address] [place] [address] CR Abdomen APon 07-30-2018 CR Abdomen AP Patient Name: KATHYA HOOPER Diagnostic Radiology Exam Date/Time 07/30/2018 10:28:42 EDT Exam CR Abdomen AP Ordering Physician [id number] GUNN Accession Number [id number] CPT4 Codes 48315 () Reason For Exam abd distension Report [...] Transcribed Date and Time: 07/30/2018 3:57 Normal [facility] CR Chest Portableon 07-31-19 19 CR Chest Portable Patient Name: KATHYA HOOPER Diagnostic Radiology Exam Date/Time 07/30/2018 12:28:13 EDT Exam CR Chest Portable Ordering Physician SALO DAVIS Accession Number [id number] CPT4 Codes 81976 () Reason For Exam line reposition Report [...] Transcribed Date and Time: 07/30/2018 1:32 Normal [facility] CR Chest Portable Patient Name: KATHYA HOOPER Diagnostic Radiology Exam Date/Time 07/30/2018 06:40:08 EDT Exam CR Chest Portable Ordering Physician MARIA EUGENIA PEREZ Accession Number [id number] CPT4 Codes 95135 () Reason For Exam ETT placement Report [...] Transcribed Date and Time: 07/30/2018 10:26 Normal [facility] 07-30-2018 Glucose mass conc 125 mg/dL High 70-100 [facility] Comment on above: Result Comment: Test performed by glucose meter. Results may be 10%-15% lower than serum/plasma values. (CLIA ID [id number]) Performed By: #### H EMDF, PT, BMP3M, PHOS3, MG3, CK3 #### [facility] [address] [place], [place] #### VD25H #### [facility] [address] [place] [address] Glucose mass conc 117 mg/dL High 70-100 [facility] Comment on above: Result Comment: Test performed by glucose meter. Results may be 10%-15% lower than serum/plasma values. (CLIA ID [id number]) Performed By: #### H EMDF, PT, BMP3M, PHOS3, MG3, CK3 #### [facility] [address] [place], [place] #### VD25H #### [facility] [address] [place] [address] Glucose mass conc 44 mg/dL Low 70-100 [facility] Comment on above: Result Comment: Repe ated Test; Test performed by glucose meter. Results may be 10%-15% lower than serum/plasma values. (CLIA ID [id number]) Performed By: #### H EMDF, PT, BMP3M, PHOS3, MG3, CK3 #### [facility] [address] [place], [place] #### VD25H #### [facility] [address] [place] [address] Hemogram w/ Autodiffon 07-30 Abs Baso Cnt 0.2 10*3/uL Normal 0.0-0.2 [facility] Comment on above: Performed By: #### H EMDF, PT, BMP3M, PHOS3, MG3, CK3 #### [address] #### VD25H #### [facility] [address] [place] [address] Abs Neutrophile Cnt 13.2 10*3/uL High 1.8-7.0 [facility] Comment on above: Performed By: #### H EMDF, PT, BMP3M, PHOS3, MG3, CK3 #### [address] #### VD25H #### [place] [address] [place] [address] Basophils/100 WBC (Bld) 0.9 % Normal 0.0-2.0 [facility] Comment on above: Performed By: #### H EMDF, PT, BMP3M, PHOS3, MG3, CK3 #### [address] #### VD25H #### [place] [address] [place] [address] Eosinophils #/vol (Bld) 0.5 10*3/uL Normal 0.0-0.5 [facility] Comment on above: Performed By: #### H EMDF, PT, BMP3M, PHOS3, MG3, CK3 #### [address] #### VD25H #### [place] [address] [place] [address] Eosinophils/100 WBC (Bld) 2.8 % Normal 1.0-6.0 [facility] Comment on above: Performed By: #### H EMDF, PT, BMP3M, PHOS3, MG3, CK3 #### [address] [place], [place] #### VD25H #### [facility] [address] [place] [address] Erythrocyte distribution width Ratio (RBC) 13.7 % Normal 11.5-14.5 [facility] Comment on above: Performed By: #### H EMDF, PT, BMP3M, PHOS3, MG3, CK3 #### [address] [place], [place] #### VD25H #### [facility] [address] [place] [address] Granulocytes/100 WBC (Bld) 76.6 % Normal 40.0-80.0 [facility] Comment on above: Performed By: #### H EMDF, PT, BMP3M, PHOS3, MG3, CK3 #### [address] #### VD25H #### [facility] [address] [place] [address] Hematocrit Volume Fraction (Bld) 31.4 % Low 40.0-52.0 [facility] Comment on above: Performed By: #### H EMDF, PT, BMP3M, PHOS3, MG3, CK3 #### [address] #### VD25H #### [facility] [address] [place] [address] Hemoglobin mass conc (Bld) 10.6 g/dL Low 13.0-18.0 [facility] Comment on above: Performed By: #### H EMDF, PT, BMP3M, PHOS3, MG3, CK3 #### [address] #### VD25H #### [facility] [address] [place] [address] Lymphocytes #/vol (Bld) 2.2 10*3/uL Normal 1.0-4.3 [facility] Comment on above: Performed By: #### H EMDF, PT, BMP3M, PHOS3, MG3, CK3 #### [address] #### VD25H #### [facility] [address] [place] [address] Lymphocytes/100 WBC (Bld) 12.9 % Low 20.0-40.0 [facility] Comment on above: Performed By: #### H EMDF, PT, BMP3M, PHOS3, MG3, CK3 #### [address] [place], [place] #### VD25H #### [facility] [address] [place] [address] MCH Entitic mass (RBC) 29.2 pg Normal 26.0-34.0 [facility] Comment on above: Performed By: #### H EMDF, PT, BMP3M, PHOS3, MG3, CK3 #### [address] #### VD25H #### [facility] [address] [place] [address] MCHC mass conc (RBC) 33.8 % Normal 32.0-36.0 [facility] Comment on above: Performed By: #### H EMDF, PT, BMP3M, PHOS3, MG3, CK3 #### [address] #### VD25H #### [facility] [address] [place] [address] MCV Entitic volume (RBC) 86.4 fL Normal 80.0-98.0 [facility] Comment on above: Performed By: #### H EMDF, PT, BMP3M, PHOS3, MG3, CK3 #### [address] #### VD25H #### [facility] [address] [place] [address] Monocytes #/vol (Bld) 1.2 10*3/uL High 0.0-0.8 [facility] Comment on above: Performed By: #### H EMDF, PT, BMP3M, PHOS3, MG3, CK3 #### [address] [place], [place] #### VD25H #### [facility] [address] [place] [address] Monocytes/100 WBC (Bld) 6.8 % Normal 2.0-10.0 [facility] Comment on above: Performed By: #### H EMDF, PT, BMP3M, PHOS3, MG3, CK3 #### [address] [place] #### VD25H #### [facility] [address] [place] [address] Platelet mean volume Entitic volume (Bld) 8.1 fL Normal 7.4-10.4 [facility] Comment on above: Performed By: #### H EMDF, PT, BMP3M, PHOS3, MG3, CK3 #### [address] [facility], [place] #### VD25H #### [facility] [address] [place] [address] Platelets #/vol (Bld) 507 10*3/uL High 140-440 [facility] Comment on above: Performed By: #### H EMDF, PT, BMP3M, PHOS3, MG3, CK3 #### [address] [place], [place] #### VD25H #### [facility] [address] [place] [address] RBC #/vol (Bld) 3.64 10*6/uL Low 4.40-5.90 [facility] Comment on above: Performed By: #### H EMDF, PT, BMP3M, PHOS3, MG3, CK3 #### [address] #### VD25H #### [facility] [address] [place] [address] WBC #/vol (Bld) 17.2 10*3/uL High 3.6-10.7 [facility] [employer] [facility] Comment on above: Performed By: #### H EMDF, PT, BMP3M, PHOS3, MG3, CK3 #### [email or web address] [facility] [address] [place], [place] #### VD25H #### [email or web address] [facility] [address] [place] [address] Magnesiumon 07-30-2018 Magnesium mass conc 2.5 mg/dL High 1.6-2.3 [facility] Comment on above: Performed By: #### H EMDF, PT, BMP3M, PHOS3, MG3, CK3 #### [email or web address] [facility] [address] [place], [place] #### VD25H #### [facility] [address] [place] [address] Phosphoruson 07-30-2018 Phosphate mass conc 4.5 mg/dL Normal 2.5-4.5 [facility] [email or web address] Comment on above: Performed By: #### H EMDF, PT, BMP3M, PHOS3, MG3, CK3 #### [email or web address] [facility] [address] [place], [place] #### VD25H #### [facility] [address] [place] [address] VL Venous Duplex US Lower Ex t Bilateralon 07-30-2018 VL Venous Duplex US Lower Ext Bilateral Patient Name: KATHYA HOOPER Ultrasound Exam Date/Time 07/30/2018 12:27:47 EDT Exam VL Venous Duplex US Lower Ext Bilateral Ordering Physician ETIENNE MARTÍNEZ JULIE Accession Number [id number] CPT4 Codes 36921 () Reason For Exam edema Report [facility] --- Lower Extremity Venous Duplex Report Patient Name: Kathya Hooper : 1955 Study Date: 07/30/2018 W (63yrs) Age: 63 Account: [id number] Gender: M Loc: T209 BP: Ordering: Yesenia Martínez Technologist: Ordering Physician: Yesenia Martínez English Professor: Barbara Suarez RDMS, T Interpreting Physician: Krysta Arora --- Location: [facility] --- INDICATIONS: Edema. --- CONCLUSIONS 1. Normal [...] performed. The images were obtained using a [employer] E9 vascular ultrasound machine. --- VENOUS FLOW [...] ---------+-------+--- --+ Electronically signed by: Krysta Arora [id number] Final Dictated: 07/30/2018 1:30 pm Dictating Physician: KRYSTA ARORA Signed Date and Time: 07/30/2018 1:29 pm Signed by: KRYSTA ARORA Normal [facility] Arterial Blood Gaseson 07-29 CO2 molar conc 34.4 mmol/L High 23.0-27.0 [facility] Comment on above: Performed By: #### H EMDF, PT, BMP3M, PHOS3, MG3, CK3 #### [facility] [address] [place], [place] #### VD25H #### [facility] [address] [place] [address] HCO3 molar conc (Bld) 33.0 mmol/L High 21.0-25.0 [facility] Comment on above: Performed By: #### H EMDF, PT, BMP3M, PHOS3, MG3, CK3 #### [address] #### VD25H #### [facility] [address] [place] [address] Hemoglobin mass conc (Bld) 11.5 g/dL Normal [employer]Only [facility] Comment on above: Performed By: #### H EMDF, PT, BMP3M, PHOS3, MG3, CK3 #### [facility] [address] [place], [place] #### VD25H #### [facility] [address] [place] [address] Oxygen ppres (Bld) 84.2 mm[Hg] Normal 80.0-100.0 [facility] Comment on above: Performed By: #### H EMDF, PT, BMP3M, PHOS3, MG3, CK3 #### [facility] [address] [place] #### VD25H #### [facility] [address] [place] [address] Oxygen saturation in Blood 96.2 % Normal 95.0-100.0 [facility] Comment on above: Performed By: #### H EMDF, PT, BMP3M, PHOS3, MG3, CK3 #### [address] #### VD25H #### [facility] [address] [place] [address] pCO2 46.8 mm[Hg] High 35.0-45.0 [facility] Comment on above: Performed By: #### H EMDF, PT, BMP3M, PHOS3, MG3, CK3 #### [address] #### VD25H #### [facility] [address] [place] [address] pH (Bld) 7.466 High 7.350-7.450 [facility] Comment on above: Performed By: #### H EMDF, PT, BMP3M, PHOS3, MG3, CK3 #### [address] [place], [place] #### VD25H #### [facility] [address] [place] [address] Std Base Excess 8.2 mmol/L High -3.0-3.0 [facility] Comment on above: Performed By: #### H EMDF, PT, BMP3M, PHOS3, MG3, CK3 #### [address] #### VD25H #### [facility] [address] [place] [address] FIO2 .30 Normal [facility] Comment on above: Performed By: #### H EMDF, PT, BMP3M, PHOS3, MG3, CK3 #### [address] [place], [place] #### VD25H #### [facility] [address] [place] [address] Basic Metabolic Panelon 03-3 Calcium mass conc 8.5 mg/dL Normal 8.4-10.4 [facility] Comment on above: Performed By: #### H EMDF, PT, BMP3M, PHOS3, MG3, CK3 #### [address] #### VD25H #### [facility] [address] [place] [address] Glucose mass conc 163 mg/dL High 70-100 [facility] Comment on above: Performed By: #### H EMDF, PT, BMP3M, PHOS3, MG3, CK3 #### [address] #### VD25H #### [facility] [address] [place] [address] Anion gap molar conc 10 Normal [facility] Comment on above: Performed By: #### H EMDF, PT, BMP3M, PHOS3, MG3, CK3 #### [address] #### VD25H #### [facility] [address] [place] [address] CO2 molar conc 37 mmol/L High 22-30 [facility] Comment on above: Performed By: #### H EMDF, PT, BMP3M, PHOS3, MG3, CK3 #### [address] #### VD25H #### [facility] [address] [place] [address] Creatinine mass conc 0.57 mg/dL Normal 0.52-1.25 [facility] Comment on above: Performed By: #### H EMDF, PT, BMP3M, PHOS3, MG3, CK3 #### [address] #### VD25H #### [facility] [address] [place] [address] GFR/1.73 sq M predicted among blacks MDRD vol rate/area (S/P/Bld) mL/min/{1.73_m2} Normal >60 [facility] Comment on above: Performed By: #### H EMDF, PT, BMP3M, PHOS3, MG3, CK3 #### [address] #### VD25H #### [facility] [address] [place] [address] GFR/1.73 sq M predicted among non-blacks MDRD vol rate/area (S/P/Bld) mL/min/{1.73_m2} Normal >60 [facility] Comment on above: Result Comment: Sour ce- MDRD equation with creatinine calibration to IDMS(NKDEP) eGFR not recommended for drug dose adjustment Performed By: #### H EMDF, PT, BMP3M, PHOS3, MG3, CK3 #### [address] #### VD25H #### [facility] [address] [place] [address] Urea nitrogen mass conc 30 mg/dL High 7-20 [facility] Comment on above: Performed By: #### H EMDF, PT, BMP3M, PHOS3, MG3, CK3 #### [address] #### VD25H #### [facility] [address] [place] [address] Chloride molar conc 95 mmol/L Low 98-107 [facility] Comment on above: Performed By: #### H EMDF, PT, BMP3M, PHOS3, MG3, CK3 #### [address] #### VD25H #### [facility] [address] [place] [address] Potassium molar conc 3.3 mmol/L Low 3.5-5.1 [facility] Comment on above: Performed By: #### H EMDF, PT, BMP3M, PHOS3, MG3, CK3 #### [facility] [address] [place], [place] #### VD25H #### [facility] [address] [place] [address] Sodium molar conc 141 mmol/L Normal 135-145 [facility] Comment on above: Performed By: #### H EMDF, PT, BMP3M, PHOS3, MG3, CK3 #### [facility] [address] [place], [place] #### VD25H #### [facility] [address] [place] [address] CR Chest Portableon 07-30-19 CR Chest Portable Patient Name: KATHYA HOOPER Diagnostic Radiology Exam Date/Time 07/29/2018 07:01:44 EDT Exam CR Chest Portable Ordering Physician MARIA EUGENIA PEREZ Accession Number [id number] CPT4 Codes 44481 () Reason For Exam ETT placement Report [...] Transcribed Date and Time: 07/29/2018 9:04 Normal [facility] Glucose,Bedsideon 07-29-2018 Glucose mass conc 124 mg/dL High 70-100 [facility] Comment on above: Result Comment: Test performed by glucose meter. Results may be 10%-15% lower than serum/plasma values. (CLIA ID [id number]) Performed By: #### H EMDF, PT, BMP3M, PHOS3, MG3, CK3 #### [email or web address] [facility] [address], [place] #### VD25H #### [email or web address] [facility] [address] [place] [address] Glucose mass conc 175 mg/dL High 70-100 [facility] Comment on above: Result Comment: Test performed by glucose meter. Results may be 10%-15% lower than serum/plasma values. (CLIA ID [id number]) Performed By: #### H EMDF, PT, BMP3M, PHOS3, MG3, CK3 #### [email or web address] [facility] [address] [place], [place] #### VD25H #### [email or web address] [facility] [address] [place] [address] Glucose mass conc 138 mg/dL High 70-100 [facility] Comment on above: Result Comment: Test performed by glucose meter. Results may be 10%-15% lower than serum/plasma values. (CLIA ID [id number]) Performed By: #### H EMDF, PT, BMP3M, PHOS3, MG3, CK3 #### [email or web address] [facility] [address] [place], [place] #### VD25H #### [email or web address] [facility] [address] [place] [address] Glucose mass conc 147 mg/dL High 70-100 [facility] Comment on above: Result Comment: Test performed by glucose meter. Results may be 10%-15% lower than serum/plasma values. (CLIA ID [id number]) Performed By: #### H EMDF, PT, BMP3M, PHOS3, MG3, CK3 #### [facility] [address] [place], [place] #### VD25H #### [facility] [address] [place] [address] Hemogram w/ Autodiffon 07-29 Erythrocyte distribution width Ratio (RBC) 13.8 % Normal 11.5-14.5 [facility] Comment on above: Performed By: #### H EMDF, PT, BMP3M, PHOS3, MG3, CK3 #### [address] #### VD25H #### [facility] [address] [place] [address] Hematocrit Volume Fraction (Bld) 32.9 % Low 40.0-52.0 [facility] Comment on above: Performed By: #### H EMDF, PT, BMP3M, PHOS3, MG3, CK3 #### [address] #### VD25H #### [facility] [address] [place] [address] Hemoglobin mass conc (Bld) 11.0 g/dL Low 13.0-18.0 [facility] Comment on above: Performed By: #### H EMDF, PT, BMP3M, PHOS3, MG3, CK3 #### [address] #### VD25H #### [facility] [address] [place] [address] MCH Entitic mass (RBC) 29.0 pg Normal 26.0-34.0 [facility] Comment on above: Performed By: #### H EMDF, PT, BMP3M, PHOS3, MG3, CK3 #### [address] #### VD25H #### [facility] [address] [place] [address] MCHC mass conc (RBC) 33.6 % Normal 32.0-36.0 [facility] Comment on above: Performed By: #### H EMDF, PT, BMP3M, PHOS3, MG3, CK3 #### [address] [place], [place] #### VD25H #### [facility] [address] [place] [address] MCV Entitic volume (RBC) 86.3 fL Normal 80.0-98.0 [facility] Comment on above: Performed By: #### H EMDF, PT, BMP3M, PHOS3, MG3, CK3 #### [address] [place], [place] #### VD25H #### [facility] [address] [place] [address] Platelet mean volume Entitic volume (Bld) 8.1 fL Normal 7.4-10.4 [facility] Comment on above: Performed By: #### H EMDF, PT, BMP3M, PHOS3, MG3, CK3 #### [address] #### VD25H #### [facility] [address] [place] [address] Platelets #/vol (Bld) 501 10*3/uL High 140-440 [facility] Comment on above: Performed By: #### H EMDF, PT, BMP3M, PHOS3, MG3, CK3 #### [address] #### VD25H #### [facility] [address] [place] [address] RBC #/vol (Bld) 3.81 10*6/uL Low 4.40-5.90 [facility] Comment on above: Performed By: #### H EMDF, PT, BMP3M, PHOS3, MG3, CK3 #### [address] #### VD25H #### [facility] [address] [place] [address] WBC #/vol (Bld) 20.8 10*3/uL High 3.6-10.7 [facility] Comment on above: Performed By: #### H EMDF, PT, BMP3M, PHOS3, MG3, CK3 #### [address] [place], [place] #### VD25H #### [facility] [address] [place] [address] Magnesiumon 07-29-2018 Magnesium mass conc 2.5 mg/dL High 1.6-2.3 [facility] Comment on above: Performed By: #### H EMDF, PT, BMP3M, PHOS3, MG3, CK3 #### [address] #### VD25H #### [place] [address] [place] [address] Manual Diffon 07-29-2018 Abs Neutrophile Cnt 17.3 10*3/uL High 2.2-8.2 [facility] Comment on above: Performed By: #### H EMDF, PT, BMP3M, PHOS3, MG3, CK3 #### [address] #### VD25H #### [facility] [address] [place] [address] Bands 1 % Normal 0-3 [facility] Comment on above: Performed By: #### H EMDF, PT, BMP3M, PHOS3, MG3, CK3 #### [address] #### VD25H #### [facility] [address] [place] [address] Eosinophils #/vol (Bld) 0.6 10*3/uL High 0.0-0.5 [facility] Comment on above: Performed By: #### H EMDF, PT, BMP3M, PHOS3, MG3, CK3 #### [address] #### VD25H #### [place] [address] [place] [address] Eosinophils/100 WBC (Bld) 3 % Normal 1-6 [facility] Comment on above: Performed By: #### H EMDF, PT, BMP3M, PHOS3, MG3, CK3 #### [facility] [address] [place], [place] #### VD25H #### [facility] [address] [place] [address] Lymphocytes #/vol (Bld) 2.3 10*3/uL Normal 1.1-4.5 [facility] Comment on above: Performed By: #### H EMDF, PT, BMP3M, PHOS3, MG3, CK3 #### [place] [address] [place], [place] #### VD25H #### [facility] [address] [place] [address] Lymphocytes/100 WBC (Bld) 11 % Low 20-40 [facility] Comment on above: Performed By: #### H EMDF, PT, BMP3M, PHOS3, MG3, CK3 #### [address] #### VD25H #### [facility] [address] [place] [address] Metamyelocytes 1 % Abnormal <1 [facility] Comment on above: Performed By: #### H EMDF, PT, BMP3M, PHOS3, MG3, CK3 #### [place] [address] [address] [place], [place] #### VD25H #### [facility] [address] [place] [address] Monocytes #/vol (Bld) 0.4 10*3/uL Normal 0.2-1.1 [facility] Comment on above: Performed By: #### H EMDF, PT, BMP3M, PHOS3, MG3, CK3 #### [place] [address] [place], [place] #### VD25H #### [facility] [address] [place] [address] Monocytes/100 WBC (Bld) 2 % Normal 2-10 [facility] Comment on above: Performed By: #### H EMDF, PT, BMP3M, PHOS3, MG3, CK3 #### [facility] [address] [place], [place] #### VD25H #### [facility] [address] [place] [address] RBC morphology finding Nom (Bld) See Prev Normal [facility] Comment on above: Performed By: #### H EMDF, PT, BMP3M, PHOS3, MG3, CK3 #### [place] [address] [place], [place] #### VD25H #### [facility] [address] [place] [address] Seg Neutrophils 82 % High 40-80 [facility] Comment on above: Performed By: #### H EMDF, PT, BMP3M, PHOS3, MG3, CK3 #### [place] [address] [place] #### VD25H #### [facility] [address] [place] [address] Abs Baso Cnt 0.0 10*3/uL Normal 0.0-0.2 [facility] Comment on above: Performed By: #### H EMDF, PT, BMP3M, PHOS3, MG3, CK3 #### [place] [address] [place] #### VD25H #### [facility] [address] [place] [address] Basophils/100 WBC (Bld) 0 % Normal 0-2 [facility] Comment on above: Performed By: #### H EMDF, PT, BMP3M, PHOS3, MG3, CK3 #### [place] [address] [place] #### VD25H #### [facility] [address] [place] [address] Cells counted 100 Normal [facility] Comment on above: Performed By: #### H EMDF, PT, BMP3M, PHOS3, MG3, CK3 #### [address] #### VD25H #### [facility] [address] [place] [address] Phosphoruson 07-29-2018 Phosphate mass conc 4.2 mg/dL Normal 2.5-4.5 [facility] Comment on above: Performed By: #### H EMDF, PT, BMP3M, PHOS3, MG3, CK3 #### [address] #### VD25H #### [address] [place] [address] Procalcitoninon 07-29-2018 Protein mass conc 0.11 ng/mL Abnormal <0.10 [facility] Comment on above: Performed By: #### H EMDF, PT, BMP3M, PHOS3, MG3, CK3 #### [address] #### VD25H #### [address] [place] [address] Interpretation See Below Normal [facility] Comment on above: Result Comment: PCT <0.50 = Low risk of severe sepsis and/or septic shock. PCT >2.00 = High risk of severe sepsis and/or septic shock. Performed By: #### H EMDF, PT, BMP3M, PHOS3, MG3, CK3 #### [address] #### VD25H #### [address] [place] [address] Vancomycin Troughon 07-30-19 19 Vancomycin Trough 12.2 ug/mL Low 15.0-20.0 [facility] Comment on above: Result Comment: . Performed By: #### H EMDF, PT, BMP3M, PHOS3, MG3, CK3 #### [address] #### VD25H #### [address] [place] [address] Basic Metabolic Panelon 03-3 Calcium mass conc 8.6 mg/dL Normal 8.4-10.4 [facility] Comment on above: Performed By: #### H EMDF, PT, BMP3M, PHOS3, MG3, CK3 #### [place] [address] [address] [facility], [place] #### VD25H #### [facility] [address] [place] [address] Glucose mass conc 158 mg/dL High 70-100 [facility] Comment on above: Performed By: #### H EMDF, PT, BMP3M, PHOS3, MG3, CK3 #### [place] [address] [address] [facility], [place] #### VD25H #### [place] [address] [place] [address] Urea nitrogen mass conc 29 mg/dL High 7-20 [facility] Comment on above: Performed By: #### H EMDF, PT, BMP3M, PHOS3, MG3, CK3 #### [place] [address] [address] [facility], [place] #### VD25H #### [facility] [address] [place] [address] Anion gap molar conc 9 Normal [facility] Comment on above: Performed By: #### H EMDF, PT, BMP3M, PHOS3, MG3, CK3 #### [place] [address] [address] [facility], [place] #### VD25H #### [facility] [address] [place] [address] CO2 molar conc 32 mmol/L High 22-30 [facility] Comment on above: Performed By: #### H EMDF, PT, BMP3M, PHOS3, MG3, CK3 #### [place] [address] [address] [facility], [place] #### VD25H #### [facility] [address] [place] [address] Creatinine mass conc 0.61 mg/dL Normal 0.52-1.25 [facility] Comment on above: Performed By: #### H EMDF, PT, BMP3M, PHOS3, MG3, CK3 #### [facility] [address] [place], [place] #### VD25H #### [facility] [address] [place] [address] GFR/1.73 sq M predicted among blacks MDRD vol rate/area (S/P/Bld) mL/min/{1.73_m2} Normal >60 [facility] Comment on above: Performed By: #### H EMDF, PT, BMP3M, PHOS3, MG3, CK3 #### [address] #### VD25H #### [facility] [address] [facility] [place] [address] GFR/1.73 sq M predicted among non-blacks MDRD vol rate/area (S/P/Bld) mL/min/{1.73_m2} Normal >60 [facility] Comment on above: Result Comment: Sour ce- MDRD equation with creatinine calibration to IDMS(NKDEP) eGFR not recommended for drug dose adjustment Performed By: #### H EMDF, PT, BMP3M, PHOS3, MG3, CK3 #### [address] #### VD25H #### [facility] [address] [place] [address] Potassium molar conc 3.6 mmol/L Normal 3.5-5.1 [facility] Comment on above: Performed By: #### H EMDF, PT, BMP3M, PHOS3, MG3, CK3 #### [address] #### VD25H #### [facility] [address] [facility] [place] [address] Chloride molar conc 100 mmol/L Normal 98-107 [facility] Comment on above: Performed By: #### H EMDF, PT, BMP3M, PHOS3, MG3, CK3 #### [facility] [address] [place] [address] #### VD25H #### [facility] [address] [place] [address] Sodium molar conc 141 mmol/L Normal 135-145 [facility] Comment on above: Performed By: #### H EMDF, PT, BMP3M, PHOS3, MG3, CK3 #### [facility] [address] [place] [address] #### VD25H #### [facility] [address] [place] [address] CR Chest Portableon 07-29-19 19 CR Chest Portable Patient Name: KATHYA HOOPER Diagnostic Radiology Exam Date/Time 07/28/2018 07:09:40 EDT Exam CR Chest Portable Ordering Physician MARIA EUGENIA PEREZ Accession Number [id number] CPT4 Codes 19242 () Reason For Exam ETT placement Report [...] Transcribed Date and Time: 07/28/2018 7:16 Normal [facility] Glucose,Bedsideon 07-28-2018 Glucose mass conc 149 mg/dL High 70-100 [facility] Comment on above: Result Comment: Test performed by glucose meter. Results may be 10%-15% lower than serum/plasma values. (CLIA ID [id number]) Performed By: #### H EMDF, PT, BMP3M, PHOS3, MG3, CK3 #### [address] #### VD25H #### [facility] [address] [place] [address] Glucose mass conc 142 mg/dL High 70-100 [facility] Comment on above: Result Comment: Test performed by glucose meter. Results may be 10%-15% lower than serum/plasma values. (CLIA ID [id number]) Performed By: #### H EMDF, PT, BMP3M, PHOS3, MG3, CK3 #### [address] #### VD25H #### [place] [address] [place] [address] Hemogram w/ Autodiffon 07-28 Erythrocyte distribution width Ratio (RBC) 13.8 % Normal 11.5-14.5 [facility] Comment on above: Performed By: #### H EMDF, PT, BMP3M, PHOS3, MG3, CK3 #### [address] #### VD25H #### [facility] [address] [place] [address] Hematocrit Volume Fraction (Bld) 33.0 % Low 40.0-52.0 [facility] Comment on above: Performed By: #### H EMDF, PT, BMP3M, PHOS3, MG3, CK3 #### [address] #### VD25H #### [facility] [address] [place] [address] Hemoglobin mass conc (Bld) 11.0 g/dL Low 13.0-18.0 [facility] Comment on above: Performed By: #### H EMDF, PT, BMP3M, PHOS3, MG3, CK3 #### [address] [place] #### VD25H #### [facility] [address] [place] [address] MCH Entitic mass (RBC) 28.7 pg Normal 26.0-34.0 [facility] Comment on above: Performed By: #### H EMDF, PT, BMP3M, PHOS3, MG3, CK3 #### [place] [address] [place], [place] #### VD25H #### [facility] [address] [place] [address] MCHC mass conc (RBC) 33.4 % Normal 32.0-36.0 [facility] Comment on above: Performed By: #### H EMDF, PT, BMP3M, PHOS3, MG3, CK3 #### [address] #### VD25H #### [place] [address] [place] [address] MCV Entitic volume (RBC) 86.0 fL Normal 80.0-98.0 [facility] Comment on above: Performed By: #### H EMDF, PT, BMP3M, PHOS3, MG3, CK3 #### [address] [place], [place] #### VD25H #### [facility] [address] [place] [address] Platelet mean volume Entitic volume (Bld) 8.4 fL Normal 7.4-10.4 [facility] Comment on above: Performed By: #### H EMDF, PT, BMP3M, PHOS3, MG3, CK3 #### [address] [place], [place] #### VD25H #### [facility] [address] [place] [address] Platelets #/vol (Bld) 477 10*3/uL High 140-440 [facility] Comment on above: Performed By: #### H EMDF, PT, BMP3M, PHOS3, MG3, CK3 #### [address] #### VD25H #### [facility] [address] [place] [address] RBC #/vol (Bld) 3.84 10*6/uL Low 4.40-5.90 [facility] Comment on above: Performed By: #### H EMDF, PT, BMP3M, PHOS3, MG3, CK3 #### [address] #### VD25H #### [facility] [address] [place] [address] WBC #/vol (Bld) 18.1 10*3/uL High 3.6-10.7 [facility] Comment on above: Performed By: #### H EMDF, PT, BMP3M, PHOS3, MG3, CK3 #### [address] #### VD25H #### [facility] [address] [place] [address] Magnesiumon 07-28-2018 Magnesium mass conc 2.4 mg/dL High 1.6-2.3 [facility] Comment on above: Performed By: #### H EMDF, PT, BMP3M, PHOS3, MG3, CK3 #### [address] #### VD25H #### [place] [address] [place] [address] Manual Diffon 07-28-2018 Abs Neutrophile Cnt 14.8 10*3/uL High 2.2-8.2 [facility] Comment on above: Performed By: #### H EMDF, PT, BMP3M, PHOS3, MG3, CK3 #### [address] #### VD25H #### [place] [address] [place] [address] Anisocytosis Ql (Bld) Slight Normal [facility] Comment on above: Performed By: #### H EMDF, PT, BMP3M, PHOS3, MG3, CK3 #### [address] [place], [place] #### VD25H #### [facility] [address] [place] [address] Hypochromia Slight Normal [facility] Comment on above: Performed By: #### H EMDF, PT, BMP3M, PHOS3, MG3, CK3 #### [place] [address] [place] #### VD25H #### [facility] [address] [place] [address] Lymphocytes #/vol (Bld) 1.3 10*3/uL Normal 1.1-4.5 [facility] Comment on above: Performed By: #### H EMDF, PT, BMP3M, PHOS3, MG3, CK3 #### [address] #### VD25H #### [facility] [address] [place] [address] Lymphocytes/100 WBC (Bld) 7 % Low 20-40 [facility] Comment on above: Performed By: #### H EMDF, PT, BMP3M, PHOS3, MG3, CK3 #### [address] #### VD25H #### [facility] [address] [place] [address] Microcytosis Slight Normal [facility] Comment on above: Performed By: #### H EMDF, PT, BMP3M, PHOS3, MG3, CK3 #### [address] #### VD25H #### [facility] [address] [place] [address] Monocytes #/vol (Bld) 2.0 10*3/uL High 0.2-1.1 [facility] Comment on above: Performed By: #### H EMDF, PT, BMP3M, PHOS3, MG3, CK3 #### [facility] [address] [place], [place] #### VD25H #### [facility] [address] [place] [address] Monocytes/100 WBC (Bld) 11 % High 2-10 [facility] Comment on above: Performed By: #### H EMDF, PT, BMP3M, PHOS3, MG3, CK3 #### [place] [address] [place] #### VD25H #### [facility] [address] [place] [address] RBC morphology finding Nom (Bld) ABNORMAL Normal [facility] Comment on above: Performed By: #### H EMDF, PT, BMP3M, PHOS3, MG3, CK3 #### [address] #### VD25H #### [facility] [address] [place] [address] Seg Neutrophils 82 % High 40-80 [facility] Comment on above: Performed By: #### H EMDF, PT, BMP3M, PHOS3, MG3, CK3 #### [place] [address] [place], [place] #### VD25H #### [facility] [address] [place] [address] Abs Baso Cnt 0.0 10*3/uL Normal 0.0-0.2 [facility] Comment on above: Performed By: #### H EMDF, PT, BMP3M, PHOS3, MG3, CK3 #### [address] #### VD25H #### [facility] [address] [place] [address] Bands 0 % Normal 0-3 [facility] Comment on above: Performed By: #### H EMDF, PT, BMP3M, PHOS3, MG3, CK3 #### [place] [address] [place], [place] #### VD25H #### [facility] [address] [place] [address] Basophils/100 WBC (Bld) 0 % Normal 0-2 [facility] Comment on above: Performed By: #### H EMDF, PT, BMP3M, PHOS3, MG3, CK3 #### [place] [address] [place], [place] #### VD25H #### [facility] [address] [place] [address] Cells counted 100 Normal [facility] Comment on above: Performed By: #### H EMDF, PT, BMP3M, PHOS3, MG3, CK3 #### [address] #### VD25H #### [facility] [address] [place] [address] Eosinophils #/vol (Bld) 0.0 10*3/uL Normal 0.0-0.5 [facility] Comment on above: Performed By: #### H EMDF, PT, BMP3M, PHOS3, MG3, CK3 #### [address] #### VD25H #### [facility] [address] [place] [address] Eosinophils/100 WBC (Bld) 0 % Low 1-6 [facility] Comment on above: Performed By: #### H EMDF, PT, BMP3M, PHOS3, MG3, CK3 #### [address] #### VD25H #### [facility] [address] [place] [address] Phosphoruson 07-28-2018 Phosphate mass conc 4.4 mg/dL Normal 2.5-4.5 [facility] Comment on above: Performed By: #### H EMDF, PT, BMP3M, PHOS3, MG3, CK3 #### [address] #### VD25H #### [facility] [address] [place] [address] Vancomycin Troughon 07-29-19 19 Vancomycin Trough 12.9 ug/mL Low 15.0-20.0 [facility] Comment on above: Result Comment: . Performed By: #### H EMDF, PT, BMP3M, PHOS3, MG3, CK3 #### [address] #### VD25H #### [place] [address] [place] [address] Arterial Blood Gaseson 07-27 CO2 molar conc 28.4 mmol/L High 23.0-27.0 [facility] Comment on above: Performed By: #### H EMDF, PT, BMP3M, PHOS3, MG3, CK3 #### [address] #### VD25H #### [place] [address] [place] [address] HCO3 molar conc (Bld) 27.2 mmol/L High 21.0-25.0 [facility] Comment on above: Performed By: #### H EMDF, PT, BMP3M, PHOS3, MG3, CK3 #### [address] #### VD25H #### [address] [place] [place] [address] Hemoglobin mass conc (Bld) 11.7 g/dL Normal ScreenOnly [facility] Comment on above: Performed By: #### H EMDF, PT, BMP3M, PHOS3, MG3, CK3 #### [address] #### VD25H #### [place] [address] [place] [address] Oxygen ppres (Bld) 91.3 mm[Hg] Normal 80.0-100.0 [facility] Comment on above: Performed By: #### H EMDF, PT, BMP3M, PHOS3, MG3, CK3 #### [address] #### VD25H #### [facility] [address] [place] [address] Oxygen saturation in Blood 96.9 % Normal 95.0-100.0 [facility] Comment on above: Performed By: #### H EMDF, PT, BMP3M, PHOS3, MG3, CK3 #### [place] [address] [place], [place] #### VD25H #### [place] [address] [place] [address] pCO2 39.0 mm[Hg] Normal 35.0-45.0 [facility] Comment on above: Performed By: #### H EMDF, PT, BMP3M, PHOS3, MG3, CK3 #### [address] #### VD25H #### [place] [address] [place] [address] pH (Bld) 7.461 High 7.350-7.450 [facility] Comment on above: Performed By: #### H EMDF, PT, BMP3M, PHOS3, MG3, CK3 #### [address] #### VD25H #### [address] [place] [address] Std Base Excess 3.2 mmol/L High -3.0-3.0 [facility] Comment on above: Performed By: #### H EMDF, PT, BMP3M, PHOS3, MG3, CK3 #### [address] #### VD25H #### [place] [address] [place] [address] FIO2 No data Normal [facility] Comment on above: Performed By: #### H EMDF, PT, BMP3M, PHOS3, MG3, CK3 #### [address], [place] #### VD25H #### [facility] [address] [place] [address] Basic Metabolic Panelon -2 Anion gap molar conc 12 Normal [facility] Comment on above: Performed By: #### H EMDF, PT, BMP3M, PHOS3, MG3, CK3 #### [place] [address] [place], [place] #### VD25H #### [facility] [address] [place] [address] Calcium mass conc 8.3 mg/dL Low 8.4-10.4 [facility] Comment on above: Performed By: #### H EMDF, PT, BMP3M, PHOS3, MG3, CK3 #### [place] [address] [place] #### VD25H #### [facility] [address] [place] [address] CO2 molar conc 28 mmol/L Normal 22-30 [facility] Comment on above: Performed By: #### H EMDF, PT, BMP3M, PHOS3, MG3, CK3 #### [place] [address] [place], [place] #### VD25H #### [facility] [address] [place] [address] Glucose mass conc 156 mg/dL High 70-100 [facility] Comment on above: Performed By: #### H EMDF, PT, BMP3M, PHOS3, MG3, CK3 #### [place] [address] [place] #### VD25H #### [facility] [address] [place] [address] Urea nitrogen mass conc 21 mg/dL High 7-20 [facility] Comment on above: Performed By: #### H EMDF, PT, BMP3M, PHOS3, MG3, CK3 #### [place] [address] [place], [place] #### VD25H #### [facility] [address] [place] [address] Creatinine mass conc 0.53 mg/dL Normal 0.52-1.25 [facility] Comment on above: Performed By: #### H EMDF, PT, BMP3M, PHOS3, MG3, CK3 #### [address] #### VD25H #### [facility] [address] [place] [address] GFR/1.73 sq M predicted among blacks MDRD vol rate/area (S/P/Bld) mL/min/{1.73_m2} Normal >60 [facility] Comment on above: Performed By: #### H EMDF, PT, BMP3M, PHOS3, MG3, CK3 #### [address] #### VD25H #### [place] [address] [place] [address] GFR/1.73 sq M predicted among non-blacks MDRD vol rate/area (S/P/Bld) mL/min/{1.73_m2} Normal >60 [facility] Comment on above: Result Comment: Sour ce- MDRD equation with creatinine calibration to IDMS(NKDEP) eGFR not recommended for drug dose adjustment Performed By: #### H EMDF, PT, BMP3M, PHOS3, MG3, CK3 #### [address] #### VD25H #### [facility] [address] [place] [address] Potassium molar conc 3.2 mmol/L Low 3.5-5.1 [facility] Comment on above: Performed By: #### H EMDF, PT, BMP3M, PHOS3, MG3, CK3 #### [address] #### VD25H #### [place] [address] [place] [address] Chloride molar conc 99 mmol/L Normal 98-107 [facility] Comment on above: Performed By: #### H EMDF, PT, BMP3M, PHOS3, MG3, CK3 #### [facility] [address] [place] [address] #### VD25H #### [facility] [address] [place] [address] Sodium molar conc 139 mmol/L Normal 135-145 [facility] Comment on above: Performed By: #### H EMDF, PT, BMP3M, PHOS3, MG3, CK3 #### [facility] [address] [place] [address] #### VD25H #### [facility] [address] [place] [address] CR Chest Portableon 07-28-19 19 CR Chest Portable Patient Name: KATHYA HOOPER Diagnostic Radiology Exam Date/Time 07/27/2018 07:08:59 EDT Exam CR Chest Portable Ordering Physician MARIA EUGENIA PEREZ Accession Number [id number] CPT4 Codes 92151 () Reason For Exam ETT placement Report [...] Transcribed Date and Time: 07/27/2018 8:02 Normal [facility] Glucose,Bedsideon 07-27-2018 Glucose mass conc 151 mg/dL High 70-100 [facility] Comment on above: Result Comment: Test performed by glucose meter. Results may be 10%-15% lower than serum/plasma values. (CLIA ID [id number]) Performed By: #### H EMDF, PT, BMP3M, PHOS3, MG3, CK3 #### [email or web address] [facility] [address] [place], [place] #### VD25H #### [email or web address] [facility] [address] [place] [address] Glucose mass conc 131 mg/dL High 70-100 [facility] Comment on above: Result Comment: Test performed by glucose meter. Results may be 10%-15% lower than serum/plasma values. (CLIA ID [id number]) Performed By: #### H EMDF, PT, BMP3M, PHOS3, MG3, CK3 #### [facility] [address] [place] [address] #### VD25H #### [facility] [address] [place] [address] Glucose mass conc 123 mg/dL High 70-100 [facility] Comment on above: Result Comment: Test performed by glucose meter. Results may be 10%-15% lower than serum/plasma values. (CLIA ID [id number]) Performed By: #### H EMDF, PT, BMP3M, PHOS3, MG3, CK3 #### [email or web address] [facility] [address] [place] [address] #### VD25H #### [email or web address] [facility] [address] [place] [address] Glucose mass conc 133 mg/dL High 70-100 [facility] Comment on above: Result Comment: Test performed by glucose meter. Results may be 10%-15% lower than serum/plasma values. (CLIA ID [id number]) Performed By: #### H EMDF, PT, BMP3M, PHOS3, MG3, CK3 #### [facility] [address] [place] [address] #### VD25H #### [facility] [address] [place] [address] Hemogram w/ Autodiffon 07-27 Erythrocyte distribution width Ratio (RBC) 13.5 % Normal 11.5-14.5 [facility] Comment on above: Performed By: #### H EMDF, PT, BMP3M, PHOS3, MG3, CK3 #### [address] #### VD25H #### [facility] [address] [place] [address] Hematocrit Volume Fraction (Bld) 32.5 % Low 40.0-52.0 [facility] Comment on above: Performed By: #### H EMDF, PT, BMP3M, PHOS3, MG3, CK3 #### [address] #### VD25H #### [facility] [address] [place] [address] Hemoglobin mass conc (Bld) 11.1 g/dL Low 13.0-18.0 [facility] Comment on above: Performed By: #### H EMDF, PT, BMP3M, PHOS3, MG3, CK3 #### [address] #### VD25H #### [facility] [address] [place] [address] MCH Entitic mass (RBC) 29.2 pg Normal 26.0-34.0 [facility] Comment on above: Performed By: #### H EMDF, PT, BMP3M, PHOS3, MG3, CK3 #### [address] #### VD25H #### [facility] [address] [place] [address] MCHC mass conc (RBC) 34.1 % Normal 32.0-36.0 [facility] Comment on above: Performed By: #### H EMDF, PT, BMP3M, PHOS3, MG3, CK3 #### [address] #### VD25H #### [facility] [address] [place] [address] MCV Entitic volume (RBC) 85.7 fL Normal 80.0-98.0 [facility] Comment on above: Performed By: #### H EMDF, PT, BMP3M, PHOS3, MG3, CK3 #### [address] #### VD25H #### [facility] [address] [place] [address] Platelet mean volume Entitic volume (Bld) 7.9 fL Normal 7.4-10.4 [facility] Comment on above: Performed By: #### H EMDF, PT, BMP3M, PHOS3, MG3, CK3 #### [address] #### VD25H #### [place] [address] [place] [address] Platelets #/vol (Bld) 466 10*3/uL High 140-440 [facility] Comment on above: Performed By: #### H EMDF, PT, BMP3M, PHOS3, MG3, CK3 #### [address] #### VD25H #### [place] [address] [place] [address] RBC #/vol (Bld) 3.79 10*6/uL Low 4.40-5.90 [facility] Comment on above: Performed By: #### H EMDF, PT, BMP3M, PHOS3, MG3, CK3 #### [address] #### VD25H #### [place] [address] [place] [address] WBC #/vol (Bld) 18.7 10*3/uL High 3.6-10.7 [facility] Comment on above: Performed By: #### H EMDF, PT, BMP3M, PHOS3, MG3, CK3 #### [place] [address] [place], [place] #### VD25H #### [facility] [address] [place] [address] Magnesiumon 07-27-2018 Magnesium mass conc 2.1 mg/dL Normal 1.6-2.3 [facility] Comment on above: Performed By: #### H EMDF, PT, BMP3M, PHOS3, MG3, CK3 #### [place] [address] [place], [place] #### VD25H #### [place] [address] [place] [address] Manual Diffon 07-27-2018 RBC morphology finding Nom (Bld) Normal Normal [facility] Comment on above: Performed By: #### H EMDF, PT, BMP3M, PHOS3, MG3, CK3 #### [address] #### VD25H #### [place] [address] [place] [address] Abs Neutrophile Cnt 14.2 10*3/uL High 2.2-8.2 [facility] Comment on above: Performed By: #### H EMDF, PT, BMP3M, PHOS3, MG3, CK3 #### [address] #### VD25H #### [address] [facility] [place] [address] Atypical Lymphocytes 2 % Abnormal <1 [facility] Comment on above: Performed By: #### H EMDF, PT, BMP3M, PHOS3, MG3, CK3 #### [address] #### VD25H #### [place] [address] [facility] [place] [address] Bands 5 % High 0-3 [facility] Comment on above: Performed By: #### H EMDF, PT, BMP3M, PHOS3, MG3, CK3 #### [address] #### VD25H #### [facility] [address] [place] [address] Eosinophils #/vol (Bld) 0.6 10*3/uL High 0.0-0.5 [facility] Comment on above: Performed By: #### H EMDF, PT, BMP3M, PHOS3, MG3, CK3 #### [facility] [address] [place], [place] #### VD25H #### [facility] [address] [place] [address] Eosinophils/100 WBC (Bld) 3 % Normal 1-6 [facility] Comment on above: Performed By: #### H EMDF, PT, BMP3M, PHOS3, MG3, CK3 #### [place] [address] [place] #### VD25H #### [facility] [address] [place] [address] Lymphocytes #/vol (Bld) 2.1 10*3/uL Normal 1.1-4.5 [facility] Comment on above: Performed By: #### H EMDF, PT, BMP3M, PHOS3, MG3, CK3 #### [place] [address] [place] #### VD25H #### [facility] [address] [place] [address] Lymphocytes/100 WBC (Bld) 11 % Low 20-40 [facility] Comment on above: Performed By: #### H EMDF, PT, BMP3M, PHOS3, MG3, CK3 #### [place] [address] [place] #### VD25H #### [facility] [address] [place] [address] Monocytes #/vol (Bld) 1.5 10*3/uL High 0.2-1.1 [facility] Comment on above: Performed By: #### H EMDF, PT, BMP3M, PHOS3, MG3, CK3 #### [place] [address] [place] #### VD25H #### [facility] [address] [place] [address] Monocytes/100 WBC (Bld) 8 % Normal 2-10 [facility] Comment on above: Performed By: #### H EMDF, PT, BMP3M, PHOS3, MG3, CK3 #### [place] [address] [place] #### VD25H #### [facility] [address] [place] [address] NRBC 1 /100{WBCs} High -1-0 [facility] Comment on above: Result Comment: Newb orn (<60 days) 1-10 Adult <1 Performed By: #### H EMDF, PT, BMP3M, PHOS3, MG3, CK3 #### [address] [place], [place] #### VD25H #### [facility] [address] [place] [address] Seg Neutrophils 71 % Normal 40-80 [facility] Comment on above: Performed By: #### H EMDF, PT, BMP3M, PHOS3, MG3, CK3 #### [address] [place], [place] #### VD25H #### [facility] [address] [place] [address] Abs Baso Cnt 0.0 10*3/uL Normal 0.0-0.2 [facility] Comment on above: Performed By: #### H EMDF, PT, BMP3M, PHOS3, MG3, CK3 #### [place] [address] [place] #### VD25H #### [facility] [address] [place] [address] Basophils/100 WBC (Bld) 0 % Normal 0-2 [facility] Comment on above: Performed By: #### H EMDF, PT, BMP3M, PHOS3, MG3, CK3 #### [facility] [address] [place], [place] #### VD25H #### [facility] [address] [place] [address] Cells counted 100 Normal [facility] Comment on above: Performed By: #### H EMDF, PT, BMP3M, PHOS3, MG3, CK3 #### [facility] [address] [place], [place] #### VD25H #### [facility] [address] [place] [address] Phosphoruson 07-27-2018 Phosphate mass conc 3.0 mg/dL Normal 2.5-4.5 [facility] Comment on above: Performed By: #### H EMDF, PT, BMP3M, PHOS3, MG3, CK3 #### [facility] [address] [place] #### VD25H #### [facility] [address] [place] [address] VL Venous Duplex US Lower Ex t Bilateralon 07-27-2018 VL Venous Duplex US Lower Ext Bilateral Patient Name: KATHYA HOOPER Ultrasound Exam Date/Time 07/27/2018 10:56:18 EDT Exam VL Venous Duplex US Lower Ext Bilateral Ordering Physician ETIENNE MARTÍNEZ JULIE Accession Number [id number] CPT4 Codes 54503 () Reason For Exam edema Report [facility] --- Lower Extremity Venous Duplex Report Patient Name: Kathya Hooper : 1955 Study Date: 07/27/2018 W (63yrs) Age: 63 Account: [id number] Gender: M Loc: T209 BP: Ordering: Yesenia Martínez Technologist: Ordering Physician: Yesenia Martínez English Professor: Mary Man RVT Interpreting Physician: Ricardo Hall MD --- Location: [facility] --- INDICATIONS: Bilateral leg edema. --- CONCLUSIONS [...] performed. The images were obtained using a [employer] E9 vascular ultrasound machine. The study was [...] --+ Electronically signed by: Ricardo Hall MD [id number] Final Dictated: 07/27/2018 12:55 pm Dictating Physician: RICARDO HALL Signed Date and Time: 07/27/2018 12:55 pm Signed by: RICARDO HALL [facility] [email or web address] Basic Metabolic Panelon 06-30 Calcium mass conc 7.9 mg/dL Low 8.4-10.4 [facility] [employer] [facility] Comment on above: Performed By: #### H EMDF, PT, BMP3M, PHOS3, MG3, CK3 #### [facility] [address] [place] [address] #### VD25H #### [facility] [address] [place] [address] Anion gap molar conc 9 Normal [facility] [email or web address] Comment on above: Performed By: #### H EMDF, PT, BMP3M, PHOS3, MG3, CK3 #### [address] #### VD25H #### [facility] [address] [place] [address] CO2 molar conc 24 mmol/L Normal 22-30 [facility] Comment on above: Performed By: #### H EMDF, PT, BMP3M, PHOS3, MG3, CK3 #### [address] #### VD25H #### [facility] [address] [place] [address] Creatinine mass conc 0.54 mg/dL Normal 0.52-1.25 [facility] Comment on above: Performed By: #### H EMDF, PT, BMP3M, PHOS3, MG3, CK3 #### [address] #### VD25H #### [place] [address] [place] [address] GFR/1.73 sq M predicted among blacks MDRD vol rate/area (S/P/Bld) mL/min/{1.73_m2} Normal >60 [facility] Comment on above: Performed By: #### H EMDF, PT, BMP3M, PHOS3, MG3, CK3 #### [address] #### VD25H #### [facility] [address] [place] [address] GFR/1.73 sq M predicted among non-blacks MDRD vol rate/area (S/P/Bld) mL/min/{1.73_m2} Normal >60 [facility] Comment on above: Result Comment: Sour ce- MDRD equation with creatinine calibration to IDMS(NKDEP) eGFR not recommended for drug dose adjustment Performed By: #### H EMDF, PT, BMP3M, PHOS3, MG3, CK3 #### [address] #### VD25H #### [facility] [address] [place] [address] Glucose mass conc 166 mg/dL High 70-100 [facility] Comment on above: Performed By: #### H EMDF, PT, BMP3M, PHOS3, MG3, CK3 #### [facility] [address] [place] #### VD25H #### [facility] [address] [place] [address] Urea nitrogen mass conc 21 mg/dL High 7-20 [facility] Comment on above: Performed By: #### H EMDF, PT, BMP3M, PHOS3, MG3, CK3 #### [place] [address] [place] #### VD25H #### [facility] [address] [place] [address] Chloride molar conc 107 mmol/L Normal 98-107 [facility] Comment on above: Performed By: #### H EMDF, PT, BMP3M, PHOS3, MG3, CK3 #### [place] [address] [place] #### VD25H #### [facility] [address] [place] [address] Potassium molar conc 3.7 mmol/L Normal 3.5-5.1 [facility] Comment on above: Performed By: #### H EMDF, PT, BMP3M, PHOS3, MG3, CK3 #### [place] [address] [place] #### VD25H #### [facility] [address] [place] [address] Sodium molar conc 140 mmol/L Normal 135-145 [facility] Comment on above: Performed By: #### H EMDF, PT, BMP3M, PHOS3, MG3, CK3 #### [place] [address] [place] #### VD25H #### [facility] [address] [place] [address] CR Chest Portableon 07-27-19 19 CR Chest Portable Patient Name: KATHYA HOOPER Diagnostic Radiology Exam Date/Time 07/26/2018 06:06:25 EDT Exam CR Chest Portable Ordering Physician MARIA EUGENIA PEREZ Accession Number [id number] CPT4 Codes 14979 () Reason For Exam ETT placement Report [...] Transcribed Date and Time: 07/26/2018 9:15 Normal [facility],Bedsideon 07-26-2018 Glucose mass conc 160 mg/dL High 70-100 [employer] [facility] Comment on above: Result Comment: Test performed by glucose meter. Results may be 10%-15% lower than serum/plasma values. (CLIA ID [id number]) Performed By: #### H EMDF, PT, BMP3M, PHOS3, MG3, CK3 #### [facility] [address] [place] [address] #### VD25H #### [facility] [address] [facility] [place] [address] Glucose mass conc 166 mg/dL High 70-100 [facility] Comment on above: Result Comment: Test performed by glucose meter. Results may be 10%-15% lower than serum/plasma values. (CLIA ID [id number]) Performed By: #### H EMDF, PT, BMP3M, PHOS3, MG3, CK3 #### [facility] [address] [place], [place] #### VD25H #### [email or web address] [facility] [address] [place] [address] Glucose mass conc 183 mg/dL High 70-100 [facility] Comment on above: Result Comment: Test performed by glucose meter. Results may be 10%-15% lower than serum/plasma values. (CLIA ID [id number]) Performed By: #### H EMDF, PT, BMP3M, PHOS3, MG3, CK3 #### [facility] [employer] [place] [address] [place], [place] #### VD25H #### [facility] [employer] [facility] [address] [place] [address] Glucose mass conc 151 mg/dL High 70-100 [facility] [employer] [facility] Comment on above: Result Comment: Test performed by glucose meter. Results may be 10%-15% lower than serum/plasma values. (CLIA ID [id number]) Performed By: #### H EMDF, PT, BMP3M, PHOS3, MG3, CK3 #### [facility] [employer] [address] #### VD25H #### [facility] [employer] [facility] [address] [place] [address] Hemogram w/ Autodiffon 07-26 Erythrocyte distribution width Ratio (RBC) 13.7 % Normal 11.5-14.5 [facility] Comment on above: Performed By: #### H EMDF, PT, BMP3M, PHOS3, MG3, CK3 #### [employer] [address] #### VD25H #### [facility] [employer] [facility] [address] [place] [address] Hematocrit Volume Fraction (Bld) 31.1 % Low 40.0-52.0 [facility] Comment on above: Performed By: #### H EMDF, PT, BMP3M, PHOS3, MG3, CK3 #### [facility] [employer] [place] [address] [place], [place] #### VD25H #### [facility] [address] [place] [address] Hemoglobin mass conc (Bld) 10.6 g/dL Low 13.0-18.0 [facility] Comment on above: Performed By: #### H EMDF, PT, BMP3M, PHOS3, MG3, CK3 #### [address] [place], [place] #### VD25H #### [facility] [address] [place] [address] MCH Entitic mass (RBC) 29.2 pg Normal 26.0-34.0 [facility] Comment on above: Performed By: #### H EMDF, PT, BMP3M, PHOS3, MG3, CK3 #### [address] #### VD25H #### [place] [address] [place] [address] MCHC mass conc (RBC) 34.0 % Normal 32.0-36.0 [facility] Comment on above: Performed By: #### H EMDF, PT, BMP3M, PHOS3, MG3, CK3 #### [address] #### VD25H #### [place] [address] [place] [address] MCV Entitic volume (RBC) 86.1 fL Normal 80.0-98.0 [facility] Comment on above: Performed By: #### H EMDF, PT, BMP3M, PHOS3, MG3, CK3 #### [address] #### VD25H #### [place] [address] [place] [address] Platelet mean volume Entitic volume (Bld) 8.3 fL Normal 7.4-10.4 [facility] Comment on above: Performed By: #### H EMDF, PT, BMP3M, PHOS3, MG3, CK3 #### [address] [place], [place] #### VD25H #### [facility] [address] [place] [address] Platelets #/vol (Bld) 364 10*3/uL Normal 140-440 [facility] Comment on above: Performed By: #### H EMDF, PT, BMP3M, PHOS3, MG3, CK3 #### [place] [address] [place], [place] #### VD25H #### [facility] [address] [place] [address] RBC #/vol (Bld) 3.62 10*6/uL Low 4.40-5.90 [facility] Comment on above: Performed By: #### H EMDF, PT, BMP3M, PHOS3, MG3, CK3 #### [place] [address] [place] #### VD25H #### [facility] [address] [place] [address] WBC #/vol (Bld) 15.2 10*3/uL High 3.6-10.7 [facility] Comment on above: Performed By: #### H EMDF, PT, BMP3M, PHOS3, MG3, CK3 #### [place] [address] [place] #### VD25H #### [facility] [address] [place] [address] Magnesiumon 07-26-2018 Magnesium mass conc 2.0 mg/dL Normal 1.6-2.3 [facility] Comment on above: Performed By: #### H EMDF, PT, BMP3M, PHOS3, MG3, CK3 #### [address] [place], [place] #### VD25H #### [facility] [address] [place] [address] Manual Diffon 07-26-2018 Abs Neutrophile Cnt 12.8 10*3/uL High 2.2-8.2 [facility] Comment on above: Performed By: #### H EMDF, PT, BMP3M, PHOS3, MG3, CK3 #### [facility] [address] [place] #### VD25H #### [facility] [address] [place] [address] Lymphocytes #/vol (Bld) 1.4 10*3/uL Normal 1.1-4.5 [facility] Comment on above: Performed By: #### H EMDF, PT, BMP3M, PHOS3, MG3, CK3 #### [place] [address] [place] #### VD25H #### [facility] [address] [place] [address] Lymphocytes/100 WBC (Bld) 9 % Low 20-40 [facility] Comment on above: Performed By: #### H EMDF, PT, BMP3M, PHOS3, MG3, CK3 #### [place] [address] [place] #### VD25H #### [facility] [address] [place] [address] Monocytes #/vol (Bld) 1.1 10*3/uL Normal 0.2-1.1 [facility] Comment on above: Performed By: #### H EMDF, PT, BMP3M, PHOS3, MG3, CK3 #### [place] [address] [place] #### VD25H #### [facility] [address] [place] [address] Monocytes/100 WBC (Bld) 7 % Normal 2-10 [facility] Comment on above: Performed By: #### H EMDF, PT, BMP3M, PHOS3, MG3, CK3 #### [place] [address] [place] #### VD25H #### [facility] [address] [place] [address] RBC morphology finding Nom (Bld) Normal Normal [facility] Comment on above: Performed By: #### H EMDF, PT, BMP3M, PHOS3, MG3, CK3 #### [place] [address] [place] #### VD25H #### [facility] [address] [place] [address] Seg Neutrophils 84 % High 40-80 [facility] Comment on above: Performed By: #### H EMDF, PT, BMP3M, PHOS3, MG3, CK3 #### [place] [address] [place] #### VD25H #### [facility] [address] [place] [address] Abs Baso Cnt 0.0 10*3/uL Normal 0.0-0.2 [facility] Comment on above: Performed By: #### H EMDF, PT, BMP3M, PHOS3, MG3, CK3 #### [place] [address] [place] #### VD25H #### [facility] [address] [place] [address] Bands 0 % Normal 0-3 [facility] Comment on above: Performed By: #### H EMDF, PT, BMP3M, PHOS3, MG3, CK3 #### [place] [address] [place] #### VD25H #### [facility] [address] [place] [address] Basophils/100 WBC (Bld) 0 % Normal 0-2 [facility] Comment on above: Performed By: #### H EMDF, PT, BMP3M, PHOS3, MG3, CK3 #### [address] [place], [place] #### VD25H #### [facility] [address] [place] [address] Cells counted 100 Normal [facility] Comment on above: Performed By: #### H EMDF, PT, BMP3M, PHOS3, MG3, CK3 #### [address] #### VD25H #### [facility] [address] [place] [address] Eosinophils #/vol (Bld) 0.0 10*3/uL Normal 0.0-0.5 [facility] Comment on above: Performed By: #### H EMDF, PT, BMP3M, PHOS3, MG3, CK3 #### [address] #### VD25H #### [facility] [address] [place] [address] Eosinophils/100 WBC (Bld) 0 % Low 1-6 [facility] Comment on above: Performed By: #### H EMDF, PT, BMP3M, PHOS3, MG3, CK3 #### [address] #### VD25H #### [facility] [address] [place] [address] Phosphoruson 07-26-2018 Phosphate mass conc 3.1 mg/dL Normal 2.5-4.5 [facility] Comment on above: Performed By: #### H EMDF, PT, BMP3M, PHOS3, MG3, CK3 #### [address] #### VD25H #### [facility] [address] [place] [address] Vancomycin Troughon 07-27-19 19 Vancomycin Trough 8.9 ug/mL Low 15.0-20.0 [facility] Comment on above: Result Comment: . Performed By: #### H EMDF, PT, BMP3M, PHOS3, MG3, CK3 #### [address] #### VD25H #### [facility] [address] [place] [address] Arterial Blood Gaseson 07-25 CO2 molar conc 22.0 mmol/L Low 23.0-27.0 [facility] Comment on above: Performed By: #### H EMDF, PT, BMP3M, PHOS3, MG3, CK3 #### [address] [place] #### VD25H #### [facility] [address] [facility] [place] [address] HCO3 molar conc (Bld) 21.1 mmol/L Normal 21.0-25.0 [facility] Comment on above: Performed By: #### H EMDF, PT, BMP3M, PHOS3, MG3, CK3 #### [address] #### VD25H #### [facility] [address] [facility] [place] [address] Hemoglobin mass conc (Bld) 10.1 g/dL Normal ScreenOnly [facility] Comment on above: Performed By: #### H EMDF, PT, BMP3M, PHOS3, MG3, CK3 #### [address] #### VD25H #### [facility] [address] [place] [address] Oxygen ppres (Bld) 88.3 mm[Hg] Normal 80.0-100.0 [facility] Comment on above: Performed By: #### H EMDF, PT, BMP3M, PHOS3, MG3, CK3 #### [address] #### VD25H #### [facility] [address] [place] [address] Oxygen saturation in Blood 96.8 % Normal 95.0-100.0 [facility] Comment on above: Performed By: #### H EMDF, PT, BMP3M, PHOS3, MG3, CK3 #### [address] #### VD25H #### [facility] [address] [facility] [place] [address] pCO2 29.9 mm[Hg] Low 35.0-45.0 [facility] Comment on above: Performed By: #### H EMDF, PT, BMP3M, PHOS3, MG3, CK3 #### [address] [place], [place] #### VD25H #### [facility] [address] [place] [address] pH (Bld) 7.467 High 7.350-7.450 [facility] Comment on above: Performed By: #### H EMDF, PT, BMP3M, PHOS3, MG3, CK3 #### [address] [place], [place] #### VD25H #### [facility] [address] [place] [address] Std Base Excess -1.9 mmol/L Normal -3.0-3.0 [facility] Comment on above: Performed By: #### H EMDF, PT, BMP3M, PHOS3, MG3, CK3 #### [address] [place], [place] #### VD25H #### [facility] [address] [place] [address] FIO2 .30 Normal [facility] Comment on above: Performed By: #### H EMDF, PT, BMP3M, PHOS3, MG3, CK3 #### [address] #### VD25H #### [facility] [address] [place] [address] Basic Metabolic Panelon 03-2 Calcium mass conc 8.1 mg/dL Low 8.4-10.4 [facility] Comment on above: Performed By: #### H EMDF, PT, BMP3M, PHOS3, MG3, CK3 #### [address] [place], [place] #### VD25H #### [facility] [address] [place] [address] Anion gap molar conc 8 Normal [facility] Comment on above: Performed By: #### H EMDF, PT, BMP3M, PHOS3, MG3, CK3 #### [address] #### VD25H #### [facility] [address] [place] [address] CO2 molar conc 24 mmol/L Normal 22-30 [facility] Comment on above: Performed By: #### H EMDF, PT, BMP3M, PHOS3, MG3, CK3 #### [address] #### VD25H #### [place] [address] [place] [address] Creatinine mass conc 0.55 mg/dL Normal 0.52-1.25 [facility] Comment on above: Performed By: #### H EMDF, PT, BMP3M, PHOS3, MG3, CK3 #### [address] #### VD25H #### [place] [address] [place] [address] GFR/1.73 sq M predicted among blacks MDRD vol rate/area (S/P/Bld) mL/min/{1.73_m2} Normal >60 [facility] Comment on above: Performed By: #### H EMDF, PT, BMP3M, PHOS3, MG3, CK3 #### [address] #### VD25H #### [address] [place] [address] GFR/1.73 sq M predicted among non-blacks MDRD vol rate/area (S/P/Bld) mL/min/{1.73_m2} Normal >60 [facility] Comment on above: Result Comment: Sour ce- MDRD equation with creatinine calibration to IDMS(NKDEP) eGFR not recommended for drug dose adjustment Performed By: #### H EMDF, PT, BMP3M, PHOS3, MG3, CK3 #### [address] #### VD25H #### [facility] [address] [place] [address] Glucose mass conc 184 mg/dL High 70-100 [facility] Comment on above: Performed By: #### H EMDF, PT, BMP3M, PHOS3, MG3, CK3 #### [facility] [address] [facility], [place] #### VD25H #### [facility] [address] [place] [address] Urea nitrogen mass conc 20 mg/dL Normal 7-20 [facility] Comment on above: Performed By: #### H EMDF, PT, BMP3M, PHOS3, MG3, CK3 #### [address] [facility], [place] #### VD25H #### [facility] [address] [place] [address] Chloride molar conc 109 mmol/L High 98-107 [facility] Comment on above: Performed By: #### H EMDF, PT, BMP3M, PHOS3, MG3, CK3 #### [address] [facility], [place] #### VD25H #### [facility] [address] [place] [address] Potassium molar conc 4.0 mmol/L Normal 3.5-5.1 [facility] Comment on above: Performed By: #### H EMDF, PT, BMP3M, PHOS3, MG3, CK3 #### [address] [facility], [place] #### VD25H #### [facility] [address] [place] [address] Sodium molar conc 141 mmol/L Normal 135-145 [facility] Comment on above: Performed By: #### H EMDF, PT, BMP3M, PHOS3, MG3, CK3 #### [address] [facility], [place] #### VD25H #### [facility] [address] [place] [address] CR Chest Portableon 07-26-19 19 CR Chest Portable Patient Name: KATHYA HOOPER Diagnostic Radiology Exam Date/Time 07/25/2018 06:39:42 EDT Exam CR Chest Portable Ordering Physician MARIA EUGENIA PEREZ Accession Number [id number] CPT4 Codes 71610 () Reason For Exam ETT placement Report [...] Transcribed Date and Time: 07/25/2018 7:45 Normal [facility] CULTURE URINEon 07-25-2018 CULTURE URINE 1 Organism [...] 4 S Trimeth/Sulfa(CHRISTI) <= 20 S Normal [facility] [employer] [facility] Comment on above: Order Comment: Speci men Source Comment:Urine, clean catch Performed By: #### H EMDF, PT, BMP3M, PHOS3, MG3, CK3 #### [facility] [address] [place] [address] #### VD25H #### [facility] [address] [place] [address] Glucose,Bedsideon 07-25-2018 Glucose mass conc 140 mg/dL High 70-100 [employer] [facility] Comment on above: Result Comment: Test performed by glucose meter. Results may be 10%-15% lower than serum/plasma values. (CLIA ID [id number]) Performed By: #### H EMDF, PT, BMP3M, PHOS3, MG3, CK3 #### [email or web address] [facility] [address] [place], [place] #### VD25H #### [facility] [address] [place] [address] Glucose mass conc 158 mg/dL High 70-100 [employer] [facility] Comment on above: Result Comment: Test performed by glucose meter. Results may be 10%-15% lower than serum/plasma values. (CLIA ID [id number]) Performed By: #### H EMDF, PT, BMP3M, PHOS3, MG3, CK3 #### [facility] [address] [place], [place] #### VD25H #### [facility] [address] [place] [address] Glucose mass conc 172 mg/dL High 70-100 [facility] Comment on above: Result Comment: Test performed by glucose meter. Results may be 10%-15% lower than serum/plasma values. (CLIA ID [id number]) Performed By: #### H EMDF, PT, BMP3M, PHOS3, MG3, CK3 #### [facility] [address] [place], [place] #### VD25H #### [facility] [address] [place] [address] Glucose mass conc 169 mg/dL High 70-100 [facility] Comment on above: Result Comment: Test performed by glucose meter. Results may be 10%-15% lower than serum/plasma values. (CLIA ID [id number]) Performed By: #### H EMDF, PT, BMP3M, PHOS3, MG3, CK3 #### [facility] [address] [place] [address] #### VD25H #### [facility] [address] [place] [address] Glucose mass conc 165 mg/dL High 70-100 [facility] Comment on above: Result Comment: Test performed by glucose meter. Results may be 10%-15% lower than serum/plasma values. (CLIA ID [id number]) Performed By: #### H EMDF, PT, BMP3M, PHOS3, MG3, CK3 #### [facility] [address] [place] [address] #### VD25H #### [email or web address] [facility] [address] [place] [address] Hemogram w/ Autodiffon 07-25 Erythrocyte distribution width Ratio (RBC) 13.6 % Normal 11.5-14.5 [facility] [email or web address] Comment on above: Performed By: #### H EMDF, PT, BMP3M, PHOS3, MG3, CK3 #### [facility] [address] [place] [address] #### VD25H #### [facility] [address] [place] [address] Hematocrit Volume Fraction (Bld) 31.3 % Low 40.0-52.0 [facility] Comment on above: Performed By: #### H EMDF, PT, BMP3M, PHOS3, MG3, CK3 #### [address] #### VD25H #### [facility] [address] [place] [address] Hemoglobin mass conc (Bld) 10.6 g/dL Low 13.0-18.0 [facility] Comment on above: Performed By: #### H EMDF, PT, BMP3M, PHOS3, MG3, CK3 #### [address] #### VD25H #### [place] [address] [place] [address] MCH Entitic mass (RBC) 29.4 pg Normal 26.0-34.0 [facility] Comment on above: Performed By: #### H EMDF, PT, BMP3M, PHOS3, MG3, CK3 #### [address] #### VD25H #### [place] [address] [place] [address] MCHC mass conc (RBC) 33.8 % Normal 32.0-36.0 [facility] Comment on above: Performed By: #### H EMDF, PT, BMP3M, PHOS3, MG3, CK3 #### [address] #### VD25H #### [place] [address] [place] [address] MCV Entitic volume (RBC) 86.9 fL Normal 80.0-98.0 [facility] Comment on above: Performed By: #### H EMDF, PT, BMP3M, PHOS3, MG3, CK3 #### [address] #### VD25H #### [facility] [address] [place] [address] Platelet mean volume Entitic volume (Bld) 8.3 fL Normal 7.4-10.4 [facility] Comment on above: Performed By: #### H EMDF, PT, BMP3M, PHOS3, MG3, CK3 #### [address] [place], [place] #### VD25H #### [facility] [address] [place] [address] Platelets #/vol (Bld) 360 10*3/uL Normal 140-440 [facility] Comment on above: Performed By: #### H EMDF, PT, BMP3M, PHOS3, MG3, CK3 #### [address] #### VD25H #### [address] [place] [address] [place] [address] RBC #/vol (Bld) 3.61 10*6/uL Low 4.40-5.90 [facility] Comment on above: Performed By: #### H EMDF, PT, BMP3M, PHOS3, MG3, CK3 #### [address] #### VD25H #### [place] [address] [place] [address] WBC #/vol (Bld) 14.7 10*3/uL High 3.6-10.7 [facility] Comment on above: Performed By: #### H EMDF, PT, BMP3M, PHOS3, MG3, CK3 #### [address] #### VD25H #### [place] [address] [place] [address] Magnesiumon 07-25-2018 Magnesium mass conc 2.1 mg/dL Normal 1.6-2.3 [facility] Comment on above: Performed By: #### H EMDF, PT, BMP3M, PHOS3, MG3, CK3 #### [address] #### VD25H #### [facility] [address] [place] [address] Manual Diffon 07-25-2018 Abs Baso Cnt 0.1 10*3/uL Normal 0.0-0.2 [facility] Comment on above: Performed By: #### H EMDF, PT, BMP3M, PHOS3, MG3, CK3 #### [address] #### VD25H #### [place] [address] [place] [address] Abs Neutrophile Cnt 12.9 10*3/uL High 2.2-8.2 [facility] Comment on above: Performed By: #### H EMDF, PT, BMP3M, PHOS3, MG3, CK3 #### [address] #### VD25H #### [place] [address] [place] [address] Anisocytosis Ql (Bld) Slight Normal [facility] Comment on above: Performed By: #### H EMDF, PT, BMP3M, PHOS3, MG3, CK3 #### [address] #### VD25H #### [place] [place] [address] Bands 4 % High 0-3 [facility] Comment on above: Performed By: #### H EMDF, PT, BMP3M, PHOS3, MG3, CK3 #### [address] #### VD25H #### [place] [address] [place] [address] Basophils/100 WBC (Bld) 1 % Normal 0-2 [facility] Comment on above: Performed By: #### H EMDF, PT, BMP3M, PHOS3, MG3, CK3 #### [facility] [address] [place], [place] #### VD25H #### [facility] [address] [place] [address] Eosinophils #/vol (Bld) 0.6 10*3/uL High 0.0-0.5 [facility] Comment on above: Performed By: #### H EMDF, PT, BMP3M, PHOS3, MG3, CK3 #### [facility] [address] [place] #### VD25H #### [facility] [address] [place] [address] Eosinophils/100 WBC (Bld) 4 % Normal 1-6 [facility] Comment on above: Performed By: #### H EMDF, PT, BMP3M, PHOS3, MG3, CK3 #### [address] #### VD25H #### [facility] [address] [place] [address] Lymphocytes #/vol (Bld) 0.1 10*3/uL Low 1.1-4.5 [facility] Comment on above: Performed By: #### H EMDF, PT, BMP3M, PHOS3, MG3, CK3 #### [address] #### VD25H #### [facility] [address] [place] [address] Lymphocytes/100 WBC (Bld) 1 % Low 20-40 [facility] Comment on above: Performed By: #### H EMDF, PT, BMP3M, PHOS3, MG3, CK3 #### [address] #### VD25H #### [facility] [address] [place] [address] Macrocytosis Slight Normal [facility] Comment on above: Performed By: #### H EMDF, PT, BMP3M, PHOS3, MG3, CK3 #### [facility] [address] [place] #### VD25H #### [facility] [address] [place] [address] Metamyelocytes 2 % Abnormal <1 [facility] Comment on above: Performed By: #### H EMDF, PT, BMP3M, PHOS3, MG3, CK3 #### [address] [place] #### VD25H #### [facility] [address] [place] [address] Microcytosis Slight Normal [facility] Comment on above: Performed By: #### H EMDF, PT, BMP3M, PHOS3, MG3, CK3 #### [address] #### VD25H #### [facility] [address] [place] [address] Monocytes #/vol (Bld) 0.6 10*3/uL Normal 0.2-1.1 [facility] Comment on above: Performed By: #### H EMDF, PT, BMP3M, PHOS3, MG3, CK3 #### [address] #### VD25H #### [facility] [address] [place] [address] Monocytes/100 WBC (Bld) 4 % Normal 2-10 [facility] Comment on above: Performed By: #### H EMDF, PT, BMP3M, PHOS3, MG3, CK3 #### [address] [place] #### VD25H #### [facility] [address] [place] [address] RBC morphology finding Nom (Bld) ABNORMAL Normal [facility] Comment on above: Performed By: #### H EMDF, PT, BMP3M, PHOS3, MG3, CK3 #### [address] #### VD25H #### [facility] [address] [place] [address] Seg Neutrophils 84 % High 40-80 [facility] Comment on above: Performed By: #### H EMDF, PT, BMP3M, PHOS3, MG3, CK3 #### [address] [place] #### VD25H #### [facility] [address] [place] [address] Cells counted 100 Normal [facility] Comment on above: Performed By: #### H EMDF, PT, BMP3M, PHOS3, MG3, CK3 #### [address] #### VD25H #### [place] [address] [place] [address] Phosphoruson 07-25-2018 Phosphate mass conc 2.7 mg/dL Normal 2.5-4.5 [facility] Comment on above: Performed By: #### H EMDF, PT, BMP3M, PHOS3, MG3, CK3 #### [address] #### VD25H #### [facility] [address] [place] [address] Triglycerideon 07-25-2018 Triglyceride mass conc 82 mg/dL Normal <150 [facility] Comment on above: Performed By: #### H EMDF, PT, BMP3M, PHOS3, MG3, CK3 #### [address] [place] #### VD25H #### [facility] [address] [place] [address] Basic Metabolic Panelon 06-30 Calcium mass conc 8.0 mg/dL Low 8.4-10.4 [facility] Comment on above: Performed By: #### H EMDF, PT, BMP3M, PHOS3, MG3, CK3 #### [address] #### VD25H #### [facility] [address] [place] [address] Anion gap molar conc 9 Normal [facility] Comment on above: Performed By: #### H EMDF, PT, BMP3M, PHOS3, MG3, CK3 #### [address] [address] #### VD25H #### [facility] [address] [place] [address] CO2 molar conc 23 mmol/L Normal 22-30 [facility] Comment on above: Performed By: #### H EMDF, PT, BMP3M, PHOS3, MG3, CK3 #### [address] [address] #### VD25H #### [facility] [address] [place] [address] Creatinine mass conc 0.71 mg/dL Normal 0.52-1.25 [facility] Comment on above: Performed By: #### H EMDF, PT, BMP3M, PHOS3, MG3, CK3 #### [address] [address] #### VD25H #### [facility] [address] [place] [address] GFR/1.73 sq M predicted among blacks MDRD vol rate/area (S/P/Bld) mL/min/{1.73_m2} Normal >60 [facility] Comment on above: Performed By: #### H EMDF, PT, BMP3M, PHOS3, MG3, CK3 #### [address] [address] #### VD25H #### [facility] [address] [place] [address] GFR/1.73 sq M predicted among non-blacks MDRD vol rate/area (S/P/Bld) mL/min/{1.73_m2} Normal >60 [facility] Comment on above: Result Comment: Sour ce- MDRD equation with creatinine calibration to IDMS(NKDEP) eGFR not recommended for drug dose adjustment Performed By: #### H EMDF, PT, BMP3M, PHOS3, MG3, CK3 #### [address] [facility], [place] #### VD25H #### [facility] [address] [place] [address] Glucose mass conc 160 mg/dL High 70-100 [facility] Comment on above: Performed By: #### H EMDF, PT, BMP3M, PHOS3, MG3, CK3 #### [address] [facility], [place] #### VD25H #### [facility] [address] [place] [address] Urea nitrogen mass conc 28 mg/dL High 7-20 [facility] Comment on above: Performed By: #### H EMDF, PT, BMP3M, PHOS3, MG3, CK3 #### [address] [facility], [place] #### VD25H #### [facility] [address] [place] [address] Chloride molar conc 109 mmol/L High 98-107 [facility] Comment on above: Performed By: #### H EMDF, PT, BMP3M, PHOS3, MG3, CK3 #### [address] [facility], [place] #### VD25H #### [facility] [address] [place] [address] Potassium molar conc 3.7 mmol/L Normal 3.5-5.1 [facility] Comment on above: Performed By: #### H EMDF, PT, BMP3M, PHOS3, MG3, CK3 #### [place] [address] [facility], [place] #### VD25H #### [facility] [address] [place] [address] Sodium molar conc 141 mmol/L Normal 135-145 [facility] Comment on above: Performed By: #### H EMDF, PT, BMP3M, PHOS3, MG3, CK3 #### [facility] [address] [place] [address] #### VD25H #### [facility] [address] [place] [address] CR Chest Portableon 07-25-19 CR Chest Portable Patient Name: KATHYA HOOPER Diagnostic Radiology Exam Date/Time 07/24/2018 13:12:47 EDT Exam CR Chest Portable Ordering Physician DO WOLFF KATHRYN C Accession Number [id number] CPT4 Codes 85419 () Reason For Exam line placement Report [...] Transcribed Date and Time: 07/24/2018 3:10 Normal [facility] CR Chest Portable Patient Name: KATHYA HOOPER Diagnostic Radiology Exam Date/Time 07/24/2018 07:11:26 EDT Exam CR Chest Portable Ordering Physician MARIA EUGENIA PEREZ Accession Number [id number] CPT4 Codes 79797 () Reason For Exam ETT placement Report [...] Transcribed Date and Time: 07/24/2018 7:31 Normal [facility] CULT./ST. RESPIRATORYon 06-30 CULT./ST. RESPIRATORY CULT./ST. RESPIRAT [...] 1 S Trimeth/Sulfa(CHRISTI) <= 20 S Normal [facility] Comment on above: Order Comment: Speci men Source Comment:Endotracheal Performed By: #### H EMDF, PT, BMP3M, PHOS3, MG3, CK3 #### [facility] [address] [place] [address] #### VD25H #### [facility] [address] [facility] [place] [address] CULTURE URINEon 07-24-2018 CULTURE URINE 1 Organism [...] 4 S Trimeth/Sulfa(CHRISTI) <= 20 S Normal [facility] Comment on above: Order Comment: Speci men Source Comment:Urine, clean catch Performed By: #### H EMDF, PT, BMP3M, PHOS3, MG3, CK3 #### [facility] [address] [place], [place] #### VD25H #### [facility] [address] [place] [address] Creatinine, Ur Randomon 06-30 Creatinine, Ur Random 49.5 mg/dL Normal No [facility] Comment on above: Performed By: #### H EMDF, PT, BMP3M, PHOS3, MG3, CK3 #### [address] #### VD25H #### [facility] [address] [place] [address] Glucose,Bedsideon 07-24-2018 Glucose mass conc 124 mg/dL High 70-100 [facility] Comment on above: Result Comment: Test performed by glucose meter. Results may be 10%-15% lower than serum/plasma values. (CLIA ID [id number]) Performed By: #### H EMDF, PT, BMP3M, PHOS3, MG3, CK3 #### [address] [address] #### VD25H #### [facility] [address] [place] [address] Glucose mass conc 152 mg/dL High 70-100 [facility] [employer] [facility] Comment on above: Result Comment: Test performed by glucose meter. Results may be 10%-15% lower than serum/plasma values. (CLIA ID [id number]) Performed By: #### H EMDF, PT, BMP3M, PHOS3, MG3, CK3 #### [address] #### VD25H #### [facility] [address] [place] [address] Glucose mass conc 149 mg/dL High 70-100 [facility] Comment on above: Result Comment: Test performed by glucose meter. Results may be 10%-15% lower than serum/plasma values. (CLIA ID [id number]) Performed By: #### H EMDF, PT, BMP3M, PHOS3, MG3, CK3 #### [address] #### VD25H #### [facility] [address] [place] [address] Hemogram w/ Autodiffon 07-24 Erythrocyte distribution width Ratio (RBC) 13.7 % Normal 11.5-14.5 [facility] Comment on above: Performed By: #### H EMDF, PT, BMP3M, PHOS3, MG3, CK3 #### [address] #### VD25H #### [facility] [address] [place] [address] Hematocrit Volume Fraction (Bld) 31.4 % Low 40.0-52.0 [facility] Comment on above: Performed By: #### H EMDF, PT, BMP3M, PHOS3, MG3, CK3 #### [address] #### VD25H #### [facility] [address] [place] [address] Hemoglobin mass conc (Bld) 10.7 g/dL Low 13.0-18.0 [facility] Comment on above: Performed By: #### H EMDF, PT, BMP3M, PHOS3, MG3, CK3 #### [address] #### VD25H #### [facility] [address] [place] [address] MCH Entitic mass (RBC) 29.4 pg Normal 26.0-34.0 [facility] Comment on above: Performed By: #### H EMDF, PT, BMP3M, PHOS3, MG3, CK3 #### [address] #### VD25H #### [facility] [address] [place] [address] MCHC mass conc (RBC) 33.9 % Normal 32.0-36.0 [facility] Comment on above: Performed By: #### H EMDF, PT, BMP3M, PHOS3, MG3, CK3 #### [address] #### VD25H #### [place] [address] [place] [address] MCV Entitic volume (RBC) 86.8 fL Normal 80.0-98.0 [facility] Comment on above: Performed By: #### H EMDF, PT, BMP3M, PHOS3, MG3, CK3 #### [address] #### VD25H #### [place] [address] [place] [address] Platelet mean volume Entitic volume (Bld) 8.6 fL Normal 7.4-10.4 [facility] Comment on above: Performed By: #### H EMDF, PT, BMP3M, PHOS3, MG3, CK3 #### [address] #### VD25H #### [place] [address] [place] [address] Platelets #/vol (Bld) 304 10*3/uL Normal 140-440 [facility] Comment on above: Performed By: #### H EMDF, PT, BMP3M, PHOS3, MG3, CK3 #### [address] #### VD25H #### [facility] [address] [place] [address] RBC #/vol (Bld) 3.62 10*6/uL Low 4.40-5.90 [facility] Comment on above: Performed By: #### H EMDF, PT, BMP3M, PHOS3, MG3, CK3 #### [address] [place], [place] #### VD25H #### [facility] [address] [place] [address] WBC #/vol (Bld) 14.0 10*3/uL High 3.6-10.7 [facility] Comment on above: Performed By: #### H EMDF, PT, BMP3M, PHOS3, MG3, CK3 #### [address] #### VD25H #### [place] [address] [place] [address] Magnesiumon 07-24-2018 Magnesium mass conc 2.2 mg/dL Normal 1.6-2.3 [facility] Comment on above: Performed By: #### H EMDF, PT, BMP3M, PHOS3, MG3, CK3 #### [address] #### VD25H #### [facility] [address] [place] [address] Manual Diffon 07-24-2018 Abs Baso Cnt 0.0 10*3/uL Normal 0.0-0.2 [facility] Comment on above: Performed By: #### H EMDF, PT, BMP3M, PHOS3, MG3, CK3 #### [address] #### VD25H #### [facility] [address] [place] [address] Abs Neutrophile Cnt 12.2 10*3/uL High 2.2-8.2 [facility] Comment on above: Performed By: #### H EMDF, PT, BMP3M, PHOS3, MG3, CK3 #### [facility] [address] [place], [place] #### VD25H #### [facility] [address] [place] [address] Eosinophils #/vol (Bld) 0.4 10*3/uL Normal 0.0-0.5 [facility] Comment on above: Performed By: #### H EMDF, PT, BMP3M, PHOS3, MG3, CK3 #### [place] [address] [place], [place] #### VD25H #### [facility] [address] [place] [address] Eosinophils/100 WBC (Bld) 3 % Normal 1-6 [facility] Comment on above: Performed By: #### H EMDF, PT, BMP3M, PHOS3, MG3, CK3 #### [place] [address] [place] #### VD25H #### [facility] [address] [place] [address] Lymphocytes #/vol (Bld) 1.0 10*3/uL Low 1.1-4.5 [facility] Comment on above: Performed By: #### H EMDF, PT, BMP3M, PHOS3, MG3, CK3 #### [place] [address] [place] #### VD25H #### [facility] [address] [place] [address] Lymphocytes/100 WBC (Bld) 7 % Low 20-40 [facility] Comment on above: Performed By: #### H EMDF, PT, BMP3M, PHOS3, MG3, CK3 #### [address] [place], [place] #### VD25H #### [facility] [address] [place] [address] Monocytes #/vol (Bld) 0.4 10*3/uL Normal 0.2-1.1 [facility] Comment on above: Performed By: #### H EMDF, PT, BMP3M, PHOS3, MG3, CK3 #### [facility] [address] [place], [place] #### VD25H #### [facility] [address] [place] [address] Monocytes/100 WBC (Bld) 3 % Normal 2-10 [facility] Comment on above: Performed By: #### H EMDF, PT, BMP3M, PHOS3, MG3, CK3 #### [place] [address] [place] #### VD25H #### [facility] [address] [place] [address] RBC morphology finding Nom (Bld) Normal Normal [facility] Comment on above: Performed By: #### H EMDF, PT, BMP3M, PHOS3, MG3, CK3 #### [place] [address] [place] #### VD25H #### [facility] [address] [place] [address] Seg Neutrophils 87 % High 40-80 [facility] Comment on above: Performed By: #### H EMDF, PT, BMP3M, PHOS3, MG3, CK3 #### [address] #### VD25H #### [facility] [address] [place] [address] Bands 0 % Normal 0-3 [facility] Comment on above: Performed By: #### H EMDF, PT, BMP3M, PHOS3, MG3, CK3 #### [place] [address] [facility], [place] #### VD25H #### [facility] [address] [place] [address] Basophils/100 WBC (Bld) 0 % Normal 0-2 [facility] Comment on above: Performed By: #### H EMDF, PT, BMP3M, PHOS3, MG3, CK3 #### [facility] [address] [place] #### VD25H #### [facility] [address] [place] [address] Cells counted 100 Normal [facility] Comment on above: Performed By: #### H EMDF, PT, BMP3M, PHOS3, MG3, CK3 #### [facility] [address] [place] #### VD25H #### [facility] [address] [place] [address] Phosphoruson 07-24-2018 Phosphate mass conc 2.7 mg/dL Normal 2.5-4.5 [facility] Comment on above: Performed By: #### H EMDF, PT, BMP3M, PHOS3, MG3, CK3 #### [place] [address] [place] #### VD25H #### [facility] [address] [place] [address] Triglycerideon 07-24-2018 Triglyceride mass conc 78 mg/dL Normal <150 [facility] Comment on above: Performed By: #### H EMDF, PT, BMP3M, PHOS3, MG3, CK3 #### [place] [address] [place] #### VD25H #### [facility] [address] [place] [address] Urea Nitrogen,Ur Randomon Urea nitrogen mass conc 1199 mg/dL Normal No Range [facility] Comment on above: Performed By: #### H EMDF, PT, BMP3M, PHOS3, MG3, CK3 #### [place] [address] [place] #### VD25H #### [facility] [address] [place] [address] Add on test from HISon 07-23 Add on test from HIS Accepted Normal [facility] Comment on above: Result Comment: Spec imen available & acceptable for analysis. Performed By: #### H EMDF, PT, BMP3M, PHOS3, MG3, CK3 #### [place] [address] [place] #### VD25H #### [facility] [address] [place] [address] Arterial Blood Gaseson 07-23 CO2 molar conc 23.0 mmol/L Normal 23.0-27.0 [facility] Comment on above: Performed By: #### H EMDF, PT, BMP3M, PHOS3, MG3, CK3 #### [place] [address] [place] #### VD25H #### [facility] [address] [place] [address] HCO3 molar conc (Bld) 22.0 mmol/L Normal 21.0-25.0 [facility] Comment on above: Performed By: #### H EMDF, PT, BMP3M, PHOS3, MG3, CK3 #### [place] [address] [place], [place] #### VD25H #### [facility] [address] [place] [address] Hemoglobin mass conc (Bld) 10.9 g/dL Normal ScreenOnly [facility] Comment on above: Performed By: #### H EMDF, PT, BMP3M, PHOS3, MG3, CK3 #### [address] #### VD25H #### [facility] [address] [place] [address] Oxygen ppres (Bld) 102.4 mm[Hg] High 80.0-100.0 [facility] Comment on above: Performed By: #### H EMDF, PT, BMP3M, PHOS3, MG3, CK3 #### [address] #### VD25H #### [facility] [address] [place] [address] Oxygen saturation in Blood 97.7 % Normal 95.0-100.0 [facility] Comment on above: Performed By: #### H EMDF, PT, BMP3M, PHOS3, MG3, CK3 #### [facility] [address] [place] #### VD25H #### [facility] [address] [place] [address] pCO2 34.4 mm[Hg] Low 35.0-45.0 [facility] Comment on above: Performed By: #### H EMDF, PT, BMP3M, PHOS3, MG3, CK3 #### [place] [address] [place] #### VD25H #### [facility] [address] [place] [address] pH (Bld) 7.423 Normal 7.350-7.450 [facility] Comment on above: Performed By: #### H EMDF, PT, BMP3M, PHOS3, MG3, CK3 #### [place] [address] [place] #### VD25H #### [facility] [address] [place] [address] Std Base Excess -1.9 mmol/L Normal -3.0-3.0 [facility] Comment on above: Performed By: #### H EMDF, PT, BMP3M, PHOS3, MG3, CK3 #### [address] #### VD25H #### [facility] [address] [place] [address] FIO2 .30 Normal [facility] Comment on above: Performed By: #### H EMDF, PT, BMP3M, PHOS3, MG3, CK3 #### [place] [address] [place] #### VD25H #### [facility] [address] [place] [address] Basic Metabolic Panelon 03-2 Anion gap molar conc 12 Normal [facility] Comment on above: Performed By: #### H EMDF, PT, BMP3M, PHOS3, MG3, CK3 #### [place] [address] [place] #### VD25H #### [facility] [address] [place] [address] Calcium mass conc 7.5 mg/dL Low 8.4-10.4 [facility] Comment on above: Performed By: #### H EMDF, PT, BMP3M, PHOS3, MG3, CK3 #### [place] [address] [place] #### VD25H #### [facility] [address] [place] [address] CO2 molar conc 23 mmol/L Normal 22-30 [facility] Comment on above: Performed By: #### H EMDF, PT, BMP3M, PHOS3, MG3, CK3 #### [place] [address] [place], [place] #### VD25H #### [facility] [address] [place] [address] Glucose mass conc 148 mg/dL High 70-100 [facility] Comment on above: Performed By: #### H EMDF, PT, BMP3M, PHOS3, MG3, CK3 #### [place] [address] [facility], [place] #### VD25H #### [facility] [address] [place] [address] Urea nitrogen mass conc 82 mg/dL High 7-20 [facility] Comment on above: Performed By: #### H EMDF, PT, BMP3M, PHOS3, MG3, CK3 #### [place] [address] [facility], [place] #### VD25H #### [facility] [address] [place] [address] Creatinine mass conc 3.01 mg/dL High 0.52-1.25 [facility] Comment on above: Performed By: #### H EMDF, PT, BMP3M, PHOS3, MG3, CK3 #### [place] [address] [place] [address] #### VD25H #### [facility] [address] [place] [address] GFR/1.73 sq M predicted among blacks MDRD vol rate/area (S/P/Bld) 25.8 mL/min/{1.73_m2} Normal >60 [facility] Comment on above: Performed By: #### H EMDF, PT, BMP3M, PHOS3, MG3, CK3 #### [address] [place], [place] #### VD25H #### [facility] [address] [place] [address] GFR/1.73 sq M predicted among non-blacks MDRD vol rate/area (S/P/Bld) 21.3 mL/min/{1.73_m2} Normal >60 [facility] Comment on above: Result Comment: Sour ce- MDRD equation with creatinine calibration to IDMS(NKDEP) eGFR not recommended for drug dose adjustment Performed By: #### H EMDF, PT, BMP3M, PHOS3, MG3, CK3 #### [address] #### VD25H #### [facility] [address] [place] [address] Chloride molar conc 106 mmol/L Normal 98-107 [facility] Comment on above: Performed By: #### H EMDF, PT, BMP3M, PHOS3, MG3, CK3 #### [address] [place], [place] #### VD25H #### [facility] [address] [place] [address] Potassium molar conc 4.2 mmol/L Normal 3.5-5.1 [facility] Comment on above: Performed By: #### H EMDF, PT, BMP3M, PHOS3, MG3, CK3 #### [address] #### VD25H #### [facility] [address] [place] [address] Sodium molar conc 141 mmol/L Normal 135-145 [facility] Comment on above: Performed By: #### H EMDF, PT, BMP3M, PHOS3, MG3, CK3 #### [facility] [address] [place], [place] #### VD25H #### [facility] [address] [place] [address] CR Chest Portableon 07-24-19 19 CR Chest Portable Patient Name: KATHYA HOOPER Diagnostic Radiology Exam Date/Time 07/23/2018 07:06:03 EDT Exam CR Chest Portable Ordering Physician MARIA EUGENIA PEREZ Accession Number [id number] CPT4 Codes 06863 () Reason For Exam ETT placement Report [...] Transcribed Date and Time: 07/23/2018 7:58 Normal [facility] Creatinine, Ur Randomon 06-30 Creatinine, Ur Random 56.8 mg/dL Normal No Range [facility] Comment on above: Performed By: #### H EMDF, PT, BMP3M, PHOS3, MG3, CK3 #### [facility] [address] [place] [address] #### VD25H #### [facility] [address] [place] [address] Glucose,Bedsideon 07-23-2018 Glucose mass conc 116 mg/dL High 70-100 [facility] Comment on above: Result Comment: Test performed by glucose meter. Results may be 10%-15% lower than serum/plasma values. (CLIA ID [id number]) Performed By: #### H EMDF, PT, BMP3M, PHOS3, MG3, CK3 #### [email or web address] [address] [place] [address] #### VD25H #### [email or web address] [address] [place] [address] Glucose mass conc 139 mg/dL High 70-100 [facility] Comment on above: Result Comment: Test performed by glucose meter. Results may be 10%-15% lower than serum/plasma values. (CLIA ID [id number]) Performed By: #### H EMDF, PT, BMP3M, PHOS3, MG3, CK3 #### [email or web address] [address] [place], [place] #### VD25H #### [facility] [address] [place] [address] Glucose mass conc 140 mg/dL High 70-100 [facility] Comment on above: Result Comment: Test performed by glucose meter. Results may be 10%-15% lower than serum/plasma values. (CLIA ID [id number]) Performed By: #### H EMDF, PT, BMP3M, PHOS3, MG3, CK3 #### [email or web address] [address] [place], [place] #### VD25H #### [email or web address] [address] [place] [address] Glucose mass conc 140 mg/dL High 70-100 [facility] Comment on above: Result Comment: Test performed by glucose meter. Results may be 10%-15% lower than serum/plasma values. (CLIA ID [id number]) Performed By: #### H EMDF, PT, BMP3M, PHOS3, MG3, CK3 #### [facility] [address] [place] #### VD25H #### [facility] [address] [place] [address] Hemogram w/ Autodiffon 07-23 Abs Baso Cnt 0.0 10*3/uL Normal 0.0-0.2 [facility] Comment on above: Performed By: #### H EMDF, PT, BMP3M, PHOS3, MG3, CK3 #### [facility] [address] [place], [place] #### VD25H #### [facility] [address] [place] [address] Abs Neutrophile Cnt 16.2 10*3/uL High 1.8-7.0 [facility] Comment on above: Performed By: #### H EMDF, PT, BMP3M, PHOS3, MG3, CK3 #### [address] #### VD25H #### [facility] [address] [place] [address] Basophils/100 WBC (Bld) 0.3 % Normal 0.0-2.0 [facility] Comment on above: Performed By: #### H EMDF, PT, BMP3M, PHOS3, MG3, CK3 #### [address] #### VD25H #### [facility] [address] [place] [address] Eosinophils #/vol (Bld) 0.2 10*3/uL Normal 0.0-0.5 [facility] Comment on above: Performed By: #### H EMDF, PT, BMP3M, PHOS3, MG3, CK3 #### [address] #### VD25H #### [facility] [address] [place] [address] Eosinophils/100 WBC (Bld) 1.2 % Normal 1.0-6.0 [facility] Comment on above: Performed By: #### H EMDF, PT, BMP3M, PHOS3, MG3, CK3 #### [place] [address] [place] #### VD25H #### [facility] [address] [place] [address] Erythrocyte distribution width Ratio (RBC) 13.9 % Normal 11.5-14.5 [facility] Comment on above: Performed By: #### H EMDF, PT, BMP3M, PHOS3, MG3, CK3 #### [place] [address] [place] #### VD25H #### [facility] [address] [place] [address] Granulocytes/100 WBC (Bld) 86.8 % High 40.0-80.0 [facility] Comment on above: Performed By: #### H EMDF, PT, BMP3M, PHOS3, MG3, CK3 #### [place] [address] [place] #### VD25H #### [facility] [address] [place] [address] Hematocrit Volume Fraction (Bld) 26.7 % Low 40.0-52.0 [facility] Comment on above: Performed By: #### H EMDF, PT, BMP3M, PHOS3, MG3, CK3 #### [place] [address] [place], [place] #### VD25H #### [facility] [address] [place] [address] Hemoglobin mass conc (Bld) 8.9 g/dL Low 13.0-18.0 [facility] Comment on above: Performed By: #### H EMDF, PT, BMP3M, PHOS3, MG3, CK3 #### [address] #### VD25H #### [facility] [address] [place] [address] Lymphocytes #/vol (Bld) 1.2 10*3/uL Normal 1.0-4.3 [facility] Comment on above: Performed By: #### H EMDF, PT, BMP3M, PHOS3, MG3, CK3 #### [facility] [address] [place] [address] #### VD25H #### [facility] [address] [place] [address] Lymphocytes/100 WBC (Bld) 6.6 % Low 20.0-40.0 [facility] Comment on above: Performed By: #### H EMDF, PT, BMP3M, PHOS3, MG3, CK3 #### [address] #### VD25H #### [facility] [address] [place] [address] MCH Entitic mass (RBC) 29.5 pg Normal 26.0-34.0 [facility] Comment on above: Performed By: #### H EMDF, PT, BMP3M, PHOS3, MG3, CK3 #### [address] #### VD25H #### [facility] [address] [place] [address] MCHC mass conc (RBC) 33.5 % Normal 32.0-36.0 [facility] Comment on above: Performed By: #### H EMDF, PT, BMP3M, PHOS3, MG3, CK3 #### [address] #### VD25H #### [facility] [address] [facility] [place] [address] MCV Entitic volume (RBC) 87.9 fL Normal 80.0-98.0 [facility] Comment on above: Performed By: #### H EMDF, PT, BMP3M, PHOS3, MG3, CK3 #### [address] #### VD25H #### [facility] [address] [facility] [place] [address] Monocytes #/vol (Bld) 1.0 10*3/uL High 0.0-0.8 [facility] Comment on above: Performed By: #### H EMDF, PT, BMP3M, PHOS3, MG3, CK3 #### [facility] [address] [place], [place] #### VD25H #### [facility] [address] [place] [address] Monocytes/100 WBC (Bld) 5.1 % Normal 2.0-10.0 [facility] Comment on above: Performed By: #### H EMDF, PT, BMP3M, PHOS3, MG3, CK3 #### [address] #### VD25H #### [facility] [address] [place] [address] Platelet mean volume Entitic volume (Bld) 8.2 fL Normal 7.4-10.4 [facility] Comment on above: Performed By: #### H EMDF, PT, BMP3M, PHOS3, MG3, CK3 #### [address] #### VD25H #### [facility] [address] [place] [address] Platelets #/vol (Bld) 294 10*3/uL Normal 140-440 [facility] Comment on above: Performed By: #### H EMDF, PT, BMP3M, PHOS3, MG3, CK3 #### [address] #### VD25H #### [facility] [address] [place] [address] RBC #/vol (Bld) 3.03 10*6/uL Low 4.40-5.90 [facility] Comment on above: Performed By: #### H EMDF, PT, BMP3M, PHOS3, MG3, CK3 #### [address] #### VD25H #### [facility] [address] [place] [address] WBC #/vol (Bld) 18.7 10*3/uL High 3.6-10.7 [facility] Comment on above: Performed By: #### H EMDF, PT, BMP3M, PHOS3, MG3, CK3 #### [address] #### VD25H #### [facility] [address] [place] [address] LDHon 07-23-2018 LDH 342 U/L High 65-175 [facility] Comment on above: Performed By: #### H EMDF, PT, BMP3M, PHOS3, MG3, CK3 #### [address] #### VD25H #### [place] [address] [place] [address] Magnesiumon 07-23-2018 Magnesium mass conc 2.5 mg/dL High 1.6-2.3 [facility] Comment on above: Performed By: #### H EMDF, PT, BMP3M, PHOS3, MG3, CK3 #### [address] #### VD25H #### [place] [address] [place] [address] Phosphoruson 07-23-2018 Phosphate mass conc 4.5 mg/dL Normal 2.5-4.5 [facility] Comment on above: Performed By: #### H EMDF, PT, BMP3M, PHOS3, MG3, CK3 #### [address] #### VD25H #### [place] [address] [place] [address] Protein, Total Body Fluidon 07-23-2018 Protein,Total-Body Fld 2.7 g/dL Normal No Range [facility] Comment on above: Performed By: #### H EMDF, PT, BMP3M, PHOS3, MG3, CK3 #### [place] [address] [place] #### VD25H #### [facility] [address] [place] [address] Triglycerideon 07-23-2018 Triglyceride mass conc 63 mg/dL Normal <150 [facility] Comment on above: Performed By: #### H EMDF, PT, BMP3M, PHOS3, MG3, CK3 #### [place] [address] [place] #### VD25H #### [facility] [address] [place] [address] Urea Nitrogen,Ur Randomon Urea nitrogen mass conc 677 mg/dL Normal No Range S [facility] Comment on above: Performed By: #### H EMDF, PT, BMP3M, PHOS3, MG3, CK3 #### [address] #### VD25H #### [facility] [address] [place] [address] Urinalysis,Macroon 9 Appearance Nom (U) cloudy Normal Clear [facility] Comment on above: Performed By: #### H EMDF, PT, BMP3M, PHOS3, MG3, CK3 #### [address] #### VD25H #### [facility] [address] [place] [address] Bilirubin,Ur Negative Normal Negative [facility] Comment on above: Performed By: #### H EMDF, PT, BMP3M, PHOS3, MG3, CK3 #### [address] #### VD25H #### [facility] [address] [place] [address] Color Nom (U) dk.yel Normal Lt. Yellow [facility] Comment on above: Performed By: #### H EMDF, PT, BMP3M, PHOS3, MG3, CK3 #### [place] [address] [place] #### VD25H #### [facility] [address] [place] [address] Glucose Ql (U) NORM Normal Negative [facility] Comment on above: Performed By: #### H EMDF, PT, BMP3M, PHOS3, MG3, CK3 #### [place] [address] [place] #### VD25H #### [facility] [address] [place] [address] Ketone,Urine Negative Normal Negative [facility] Comment on above: Performed By: #### H EMDF, PT, BMP3M, PHOS3, MG3, CK3 #### [address] [place], [place] #### VD25H #### [facility] [address] [place] [address] Nitrite Ql (U) Negative Normal Negative [facility] Comment on above: Performed By: #### H EMDF, PT, BMP3M, PHOS3, MG3, CK3 #### [address] #### VD25H #### [facility] [address] [place] [address] Occult Blood,Ur 250 {RBC}/uL Normal Negative [facility] Comment on above: Performed By: #### H EMDF, PT, BMP3M, PHOS3, MG3, CK3 #### [place] [address] [place] #### VD25H #### [facility] [address] [place] [address] pH (U) 5.0 Normal 5.0-8.0 [facility] Comment on above: Performed By: #### H EMDF, PT, BMP3M, PHOS3, MG3, CK3 #### [address] #### VD25H #### [facility] [address] [place] [address] Protein mass conc (U) 75 mg/dL Normal Negative [facility] Comment on above: Performed By: #### H EMDF, PT, BMP3M, PHOS3, MG3, CK3 #### [facility] [address] [place], [place] #### VD25H #### [facility] [address] [place] [address] Specific [place],Urine 1.015 Normal 1.005-1.030 [facility] Comment on above: Performed By: #### H EMDF, PT, BMP3M, PHOS3, MG3, CK3 #### [address] #### VD25H #### [facility] [address] [place] [address] Urobilinogen Qn (U) NORM Normal 0-1 [facility] Comment on above: Performed By: #### H EMDF, PT, BMP3M, PHOS3, MG3, CK3 #### [address] #### VD25H #### [facility] [address] [place] [address] WBC #/vol (Bld) 2 + Normal Negative [facility] Comment on above: Performed By: #### H EMDF, PT, BMP3M, PHOS3, MG3, CK3 #### [address] #### VD25H #### [facility] [address] [place] [address] Urinalysis,Microscopicon Bacteria LM.HPF #/area (Urine sed) Moderate (6-50) Normal Negative [facility] Comment on above: Performed By: #### H EMDF, PT, BMP3M, PHOS3, MG3, CK3 #### [address] #### VD25H #### [facility] [address] [place] [address] Epithelial cells LM.HPF #/area (Urine sed) 0 - 2 Normal 3-5 [facility] Comment on above: Performed By: #### H EMDF, PT, BMP3M, PHOS3, MG3, CK3 #### [facility] [address] [place] [address] #### VD25H #### [facility] [address] [place] [address] RBC LM.HPF #/area (Urine sed) /[HPF] Normal 0-2 [facility] Comment on above: Performed By: #### H EMDF, PT, BMP3M, PHOS3, MG3, CK3 #### [facility] [address] [place] [address] #### VD25H #### [facility] [address] [facility] [place] [address] Volume,Urine 8-12 ml Normal [facility] Comment on above: Performed By: #### H EMDF, PT, BMP3M, PHOS3, MG3, CK3 #### [facility] [address] [place] [address] #### VD25H #### [facility] [address] [place] [address] WBC LM.HPF #/area (Urine sed) 26 - 50 Normal 0-5 [facility] Comment on above: Performed By: #### H EMDF, PT, BMP3M, PHOS3, MG3, CK3 #### [address] [address] #### VD25H #### [facility] [address] [place] [address] VL Venous Duplex US Lower Ex t Bilateralon 07-23-2018 VL Venous Duplex US Lower Ext Bilateral Patient Name: KATHYA HOOPER Ultrasound Exam Date/Time 07/23/2018 11:16:11 EDT Exam VL Venous Duplex US Lower Ext Bilateral Ordering Physician ETIENNE MARTÍNEZ JULIE Accession Number [id number] CPT4 Codes 30534 () Reason For Exam edema Report [facility] --- Lower Extremity Venous Duplex Report Patient Name: Kathya Hooper : 1955 Study Date: 07/23/2018 W (63yrs) Age: 63 Account: [id number] Gender: M Loc: T209 BP: Ordering: Yesenia Martínez Technologist: Ordering Physician: Yesenia Martínez English Professor: León Chaidez RVT, [facility] Interpreting Physician: Vamsi York MD --- Location: [facility] --- INDICATIONS: Edema. bilateral calf edema. --- [...] performed. The images were obtained using a [employer] E9 vascular ultrasound machine. --- VENOUS FLOW [...] --+ Electronically signed by: Vamsi York MD [id number] Final Dictated: 07/23/2018 3:00 pm Dictating Physician: VAMSI YORK Signed Date and Time: 07/23/2018 3:00 pm Signed by: VAMSI YORK Normal [facility] Vancomycin Troughon 07-24-19 Vancomycin Trough 10.8 ug/mL Low 15.0-20.0 [facility] Comment on above: Result Comment: . Performed By: #### H EMDF, PT, BMP3M, PHOS3, MG3, CK3 #### [facility] [address] [place] [address] #### VD25H #### [facility] [address] [place] [address] Basic Metabolic Panelon 06-30 Calcium mass conc 7.9 mg/dL Low 8.4-10.4 [facility] Comment on above: Performed By: #### H EMDF, PT, BMP3M, PHOS3, MG3, CK3 #### [facility] [address] [facility], [place] #### VD25H #### [facility] [address] [place] [address] Anion gap molar conc 11 Normal [facility] Comment on above: Performed By: #### H EMDF, PT, BMP3M, PHOS3, MG3, CK3 #### [place] [address] [address] [facility], [place] #### VD25H #### [facility] [address] [place] [address] CO2 molar conc 28 mmol/L Normal 22-30 [facility] Comment on above: Performed By: #### H EMDF, PT, BMP3M, PHOS3, MG3, CK3 #### [place] [address] [address] [facility], [place] #### VD25H #### [facility] [address] [place] [address] Glucose mass conc 134 mg/dL High 70-100 [facility] Comment on above: Performed By: #### H EMDF, PT, BMP3M, PHOS3, MG3, CK3 #### [place] [address] [address] [facility], [place] #### VD25H #### [facility] [address] [place] [address] Urea nitrogen mass conc 51 mg/dL High 7-20 [facility] Comment on above: Performed By: #### H EMDF, PT, BMP3M, PHOS3, MG3, CK3 #### [place] [address] [address] [facility], [place] #### VD25H #### [facility] [address] [place] [address] Creatinine mass conc 1.57 mg/dL High 0.52-1.25 [facility] Comment on above: Performed By: #### H EMDF, PT, BMP3M, PHOS3, MG3, CK3 #### [place] [address] [address] [facility], [place] #### VD25H #### [facility] [address] [place] [address] GFR/1.73 sq M predicted among blacks MDRD vol rate/area (S/P/Bld) 54.6 mL/min/{1.73_m2} Normal >60 [facility] Comment on above: Performed By: #### H EMDF, PT, BMP3M, PHOS3, MG3, CK3 #### [address] #### VD25H #### [place] [address] [place] [address] GFR/1.73 sq M predicted among non-blacks MDRD vol rate/area (S/P/Bld) 45.1 mL/min/{1.73_m2} Normal >60 [facility] Comment on above: Result Comment: Sour ce- MDRD equation with creatinine calibration to IDMS(NKDEP) eGFR not recommended for drug dose adjustment Performed By: #### H EMDF, PT, BMP3M, PHOS3, MG3, CK3 #### [address] #### VD25H #### [place] [address] [place] [address] Chloride molar conc 107 mmol/L Normal 98-107 [facility] Comment on above: Performed By: #### H EMDF, PT, BMP3M, PHOS3, MG3, CK3 #### [address] #### VD25H #### [facility] [address] [place] [address] Potassium molar conc 3.8 mmol/L Normal 3.5-5.1 [facility] Comment on above: Performed By: #### H EMDF, PT, BMP3M, PHOS3, MG3, CK3 #### [address] #### VD25H #### [place] [address] [place] [address] Sodium molar conc 146 mmol/L High 135-145 [facility] Comment on above: Performed By: #### H EMDF, PT, BMP3M, PHOS3, MG3, CK3 #### [facility] [address] [facility] [place] [address] #### VD25H #### [facility] [address] [place] [address] CR Abdomen APon 07-22-2018 CR Abdomen AP Patient Name: KATHYA HOOPER Diagnostic Radiology Exam Date/Time 07/22/2018 08:02:02 EDT Exam CR Abdomen AP Ordering Physician MARIA EUGENIA PEREZ Accession Number [id number] CPT4 Codes 96286 () Reason For Exam ileus Report Supine [...] Transcribed Date and Time: 07/22/2018 9:28 Normal [facility] CR Chest Portableon 07-23-19 19 CR Chest Portable Patient Name: KATHYA HOOPER Diagnostic Radiology Exam Date/Time 07/22/2018 16:32:15 EDT Exam CR Chest Portable Ordering Physician [facility] Accession Number [id number] CPT4 Codes 15561 () Reason For Exam Thoracentesis Report Clinical [...] Transcribed Date and Time: 07/22/2018 6:46 Normal [facility] CR Chest Portable Patient Name: KATHYA HOOPER Diagnostic Radiology Exam Date/Time 07/22/2018 06:49:22 EDT Exam CR Chest Portable Ordering Physician MARIA EUGENIA PEREZ Accession Number [id number] CPT4 Codes 29092 () Reason For Exam ETT placement Report [...] Time: 07/22/2018 9:32 am Signed by: MD JOSE, JOSEPH [place] Date and Time: 07/22/2018 9:31 Normal [facility] CULTURE AND STAIN - FLUIDon 07-22-2018 CULTURE AND STAIN - FLUID CULTURE & STAIN - FLUID --> Status: F No growth at 5 days. STAIN GRAM --> Status: F Moderate polymorphonuclear cells/lpf. Moderate mononuclear cells/lpf No organisms seen. Cytocentrifugation performed. Moderate mononuclear cells/lpf No organisms seen. Cytocentrifugation performed. Normal [facility] Comment on above: Order Comment: Speci men Source Comment:Body Fluid Performed By: #### H EMDF, PT, BMP3M, PHOS3, MG3, CK3 #### [place] [address] [place], [place] #### VD25H #### [facility] [address] [place] [address] Cell Count,Body Fluidon 06-30 Nucleated Cells 259 {cells}/uL Normal [facility] Comment on above: Performed By: #### H EMDF, PT, BMP3M, PHOS3, MG3, CK3 #### [address] #### VD25H #### [facility] [address] [place] [address] RBC Count Body Fld 123 {RBC}/uL Normal [facility] Comment on above: Performed By: #### H EMDF, PT, BMP3M, PHOS3, MG3, CK3 #### [facility] [address] [place], [place] #### VD25H #### [facility] [address] [place] [address] Fluid Type thoracentesis Normal [facility] Comment on above: Performed By: #### H EMDF, PT, BMP3M, PHOS3, MG3, CK3 #### [facility] [address] [place], [place] #### VD25H #### [facility] [address] [place] [address] Glucose, Body Fluidon 2018 Fluid Type Thoracentesis Normal [facility] Comment on above: Performed By: #### H EMDF, PT, BMP3M, PHOS3, MG3, CK3 #### [facility] [address] [place], [place] #### VD25H #### [facility] [address] [place] [address] Glucose, Body Fluid 136 mg/dL Normal No Range [facility] Comment on above: Performed By: #### H EMDF, PT, BMP3M, PHOS3, MG3, CK3 #### [address] #### VD25H #### [facility] [address] [place] [address] Glucose,Bedsideon 07-22-2018 Glucose mass conc 142 mg/dL High 70-100 [facility] Comment on above: Result Comment: Test performed by glucose meter. Results may be 10%-15% lower than serum/plasma values. (CLIA ID [id number]) Performed By: #### H EMDF, PT, BMP3M, PHOS3, MG3, CK3 #### [facility] [address] [place], [place] #### VD25H #### [facility] [address] [place] [address] Glucose mass conc 127 mg/dL High 70-100 [facility] Comment on above: Result Comment: Test performed by glucose meter. Results may be 10%-15% lower than serum/plasma values. (CLIA ID [id number]) Performed By: #### H EMDF, PT, BMP3M, PHOS3, MG3, CK3 #### [facility] [address] [place], [place] #### VD25H #### [facility] [address] [place] [address] Glucose mass conc 139 mg/dL High 70-100 [facility] Comment on above: Result Comment: Test performed by glucose meter. Results may be 10%-15% lower than serum/plasma values. (CLIA ID [id number]) Performed By: #### H EMDF, PT, BMP3M, PHOS3, MG3, CK3 #### [email or web address] [address] [place] [address] #### VD25H #### [email or web address] [address] [place] [address] Glucose mass conc 124 mg/dL High 70-100 [facility] Comment on above: Result Comment: Test performed by glucose meter. Results may be 10%-15% lower than serum/plasma values. (CLIA ID [id number]) Performed By: #### H EMDF, PT, BMP3M, PHOS3, MG3, CK3 #### [email or web address] [address] [place] [address] #### VD25H #### [email or web address] [address] [place] [address] Glucose mass conc 128 mg/dL High 70-100 [facility] Comment on above: Result Comment: Test performed by glucose meter. Results may be 10%-15% lower than serum/plasma values. (CLIA ID [id number]) Performed By: #### H EMDF, PT, BMP3M, PHOS3, MG3, CK3 #### [email or web address] [address] [place], [place] #### VD25H #### [email or web address] [address] [place] [address] Glucose mass conc 113 mg/dL High 70-100 [facility] Comment on above: Result Comment: Test performed by glucose meter. Results may be 10%-15% lower than serum/plasma values. (CLIA ID [id number]) Performed By: #### H EMDF, PT, BMP3M, PHOS3, MG3, CK3 #### [email or web address] [address] [place] [address] #### VD25H #### [email or web address] [address] [place] [address] Hemogram w/ Autodiffon 07-22 Abs Baso Cnt 0.1 10*3/uL Normal 0.0-0.2 [facility] Comment on above: Performed By: #### H EMDF, PT, BMP3M, PHOS3, MG3, CK3 #### [facility] [address] [place], [place] #### VD25H #### [facility] [address] [place] [address] Abs Neutrophile Cnt 15.2 10*3/uL High 1.8-7.0 [facility] Comment on above: Performed By: #### H EMDF, PT, BMP3M, PHOS3, MG3, CK3 #### [address] #### VD25H #### [facility] [address] [place] [address] Basophils/100 WBC (Bld) 0.6 % Normal 0.0-2.0 [facility] Comment on above: Performed By: #### H EMDF, PT, BMP3M, PHOS3, MG3, CK3 #### [address] #### VD25H #### [facility] [address] [facility] [place] [address] Eosinophils #/vol (Bld) 0.2 10*3/uL Normal 0.0-0.5 [facility] Comment on above: Performed By: #### H EMDF, PT, BMP3M, PHOS3, MG3, CK3 #### [address] #### VD25H #### [facility] [address] [place] [address] Eosinophils/100 WBC (Bld) 0.9 % Low 1.0-6.0 [facility] Comment on above: Performed By: #### H EMDF, PT, BMP3M, PHOS3, MG3, CK3 #### [address] #### VD25H #### [facility] [address] [place] [address] Erythrocyte distribution width Ratio (RBC) 13.9 % Normal 11.5-14.5 [facility] Comment on above: Performed By: #### H EMDF, PT, BMP3M, PHOS3, MG3, CK3 #### [address] #### VD25H #### [facility] [address] [place] [address] Granulocytes/100 WBC (Bld) 88.8 % High 40.0-80.0 [facility] Comment on above: Performed By: #### H EMDF, PT, BMP3M, PHOS3, MG3, CK3 #### [address] #### VD25H #### [place] [address] [place] [address] Hematocrit Volume Fraction (Bld) 31.6 % Low 40.0-52.0 [facility] Comment on above: Performed By: #### H EMDF, PT, BMP3M, PHOS3, MG3, CK3 #### [address] #### VD25H #### [place] [address] [place] [address] Hemoglobin mass conc (Bld) 10.9 g/dL Low 13.0-18.0 [facility] Comment on above: Performed By: #### H EMDF, PT, BMP3M, PHOS3, MG3, CK3 #### [address] #### VD25H #### [facility] [address] [place] [address] Lymphocytes #/vol (Bld) 1.1 10*3/uL Normal 1.0-4.3 [facility] Comment on above: Performed By: #### H EMDF, PT, BMP3M, PHOS3, MG3, CK3 #### [address] #### VD25H #### [facility] [address] [place] [address] Lymphocytes/100 WBC (Bld) 6.2 % Low 20.0-40.0 [facility] Comment on above: Performed By: #### H EMDF, PT, BMP3M, PHOS3, MG3, CK3 #### [place] [address] [address] [place], [place] #### VD25H #### [facility] [address] [place] [address] MCH Entitic mass (RBC) 31.1 pg Normal 26.0-34.0 [facility] Comment on above: Performed By: #### H EMDF, PT, BMP3M, PHOS3, MG3, CK3 #### [place] [address] [place] [place] #### VD25H #### [place] [address] [place] [address] MCHC mass conc (RBC) 34.6 % Normal 32.0-36.0 [facility] Comment on above: Performed By: #### H EMDF, PT, BMP3M, PHOS3, MG3, CK3 #### [place] [address] [address] [place] #### VD25H #### [place] [address] [place] [address] MCV Entitic volume (RBC) 89.9 fL Normal 80.0-98.0 [facility] Comment on above: Performed By: #### H EMDF, PT, BMP3M, PHOS3, MG3, CK3 #### [place] [address] [address] [place] #### VD25H #### [facility] [address] [place] [address] Monocytes #/vol (Bld) 0.6 10*3/uL Normal 0.0-0.8 [facility] Comment on above: Performed By: #### H EMDF, PT, BMP3M, PHOS3, MG3, CK3 #### [address] [place], [place] #### VD25H #### [facility] [address] [place] [address] Monocytes/100 WBC (Bld) 3.5 % Normal 2.0-10.0 [facility] Comment on above: Performed By: #### H EMDF, PT, BMP3M, PHOS3, MG3, CK3 #### [address] [place] #### VD25H #### [facility] [address] [place] [address] Platelet mean volume Entitic volume (Bld) 7.9 fL Normal 7.4-10.4 [facility] Comment on above: Performed By: #### H EMDF, PT, BMP3M, PHOS3, MG3, CK3 #### [address] #### VD25H #### [facility] [address] [place] [address] Platelets #/vol (Bld) 299 10*3/uL Normal 140-440 [facility] Comment on above: Performed By: #### H EMDF, PT, BMP3M, PHOS3, MG3, CK3 #### [address] #### VD25H #### [facility] [address] [place] [address] RBC #/vol (Bld) 3.52 10*6/uL Low 4.40-5.90 [facility] Comment on above: Performed By: #### H EMDF, PT, BMP3M, PHOS3, MG3, CK3 #### [address] #### VD25H #### [facility] [address] [place] [address] WBC #/vol (Bld) 17.1 10*3/uL High 3.6-10.7 [facility] Comment on above: Performed By: #### H EMDF, PT, BMP3M, PHOS3, MG3, CK3 #### [facility] [address] [place] [address] #### VD25H #### [facility] [address] [place] [address] LDH, Body Fluidon 07-22-2018 LDH, Body Fluid 232 U/L Normal No Range [facility] Comment on above: Performed By: #### H EMDF, PT, BMP3M, PHOS3, MG3, CK3 #### [facility] [address] [place] [address] #### VD25H #### [facility] [address] [place] [address] Magnesiumon 07-22-2018 Magnesium mass conc 2.6 mg/dL High 1.6-2.3 [facility] Comment on above: Performed By: #### H EMDF, PT, BMP3M, PHOS3, MG3, CK3 #### [facility] [address] [place] [address] #### VD25H #### [facility] [address] [facility] [place] [address] Medical Cytologyon 9 Medical Cytology [id number] DEPARTMENT OF PATHOLOGY AND [facility] LABORATORY MEDICINE [address] [place] [address] FINAL MEDICAL CYTOLOGY REPORT NAME: KATHYA HOOPER Zulma : 1955 63 Y M BILLING NO.: [id number] LOCATION: 1[facility] T2 INPAT T209 PROCEDURE 07/22/2018 01 DATE: PHYSICIAN: NICOLE SULLIVAN M.D. RECEIVED DATE: [...] characteristics determined by the clinical laboratories of [facility]. They have not been cleared by the [...] negativity on decalcified specimens. Case reviewed at [place] [address] [place] [address]. DEPARTMENT OF PATHOLOGY AND LABORATORY MEDICINE [place], [place] [address] Normal [facility] Phosphoruson 07-22-2018 Phosphate mass conc 4.6 mg/dL High 2.5-4.5 [facility] Comment on above: Performed By: #### H EMDF, PT, BMP3M, PHOS3, MG3, CK3 #### [facility] [address] [address] [address] [address] #### VD25H #### [facility] [address] [place] [address] Procalcitoninon 07-22-2018 Protein mass conc 0.27 ng/mL Abnormal <0.10 [facility] Comment on above: Result Comment: (Cor rect ref.range is <0.09 ng/mL) Test performed: [facility], [place], [place]. Performed By: #### H EMDF, PT, BMP3M, PHOS3, MG3, CK3 #### [address] #### VD25H #### [place] [address] [place] [address] Interpretation See Below Normal [facility] Comment on above: Result Comment: PCT <0.50 = Low risk of severe sepsis and/or septic shock. PCT >2.00 = High risk of severe sepsis and/or septic shock. Performed By: #### H EMDF, PT, BMP3M, PHOS3, MG3, CK3 #### [address] #### VD25H #### [address] [place] [address] STAIN ACID-FASTon 07-22-2018 STAIN ACID-FAST STAIN ACID-FAST --> Status: F No acid-fast bacilli seen in smear. - Method: AFB by Kinyoun Stain - Method: AFB by Kinyoun Stain Normal [facility] Comment on above: Performed By: #### H EMDF, PT, BMP3M, PHOS3, MG3, CK3 #### [address] #### VD25H #### [address] [place] [address] Triglycerideon 07-22-2018 Triglyceride mass conc 96 mg/dL Normal <150 [facility] Comment on above: Performed By: #### H EMDF, PT, BMP3M, PHOS3, MG3, CK3 #### [address] #### VD25H #### [address] [place] [address] US Thora-Aspir Pleura w/ Evelin geon 07-22-2018 US Thora-Aspir Pleura w/ Image Patient Name: KATHYA HOOPER Ultrasound Exam Date/Time 07/22/2018 14:23:28 EDT Exam US Thora-Aspir Pleura w/ Image Ordering Physician MARIA EUGENIA PEREZ Accession Number [id number] CPT4 Codes 65277 () Reason For Exam L thoracentesis Report Reasons for examination: Left pleural effusion. Respiratory insufficiency. Ultrasound was performed of the left hemithorax, localizing the pleural fluid. After obtaining informed consent, sterile preparation, draping, and local anesthetic administration, thoracentesis was performed under direct ultrasonographic guidance with a 5 Bengali Yueh needle/catheter. A total of 300 mL [...] Transcribed Date and Time: 07/22/2018 2:55 Normal [facility] pH,Misc Body Fluidon 019 pH,Misc 7.996 Normal None Available [facility] Comment on above: Performed By: #### H EMDF, PT, BMP3M, PHOS3, MG3, CK3 #### [facility] [address] [place] [address] #### VD25H #### [facility] [address] [place] [address] Arterial Blood Gaseson 07-21 CO2 molar conc 29.8 mmol/L High 23.0-27.0 [facility] Comment on above: Performed By: #### T SGL #### [facility] [address] [place] [address] HCO3 molar conc (Bld) 28.7 mmol/L High 21.0-25.0 [facility] Comment on above: Performed By: #### T SGL #### [facility] [address] [place] [address] Hemoglobin mass conc (Bld) 11.7 g/dL Normal ScreenOnly [facility] Comment on above: Performed By: #### T SGL #### [address] [place] [address] Oxygen ppres (Bld) 144.9 mm[Hg] High 80.0-100.0 [facility] Comment on above: Performed By: #### T SGL #### [address] [place] [address] Oxygen saturation in Blood 98.4 % Normal 95.0-100.0 [facility] Comment on above: Performed By: #### T SGL #### [address] [place] [address] pCO2 36.8 mm[Hg] Normal 35.0-45.0 [facility] Comment on above: Performed By: #### T SGL #### [address] [place] [address] pH (Bld) 7.510 High 7.350-7.450 [facility] Comment on above: Performed By: #### T SGL #### [address] [place] [address] Std Base Excess 5.5 mmol/L High -3.0-3.0 [facility] Comment on above: Performed By: #### T SGL #### [address] [place] [address] FIO2 .50 Normal [facility] Comment on above: Performed By: #### T SGL #### [address] [place] [address] CR Abdomen APon 07-21-2018 CR Abdomen AP Patient Name: KATHYA HOOPER Diagnostic Radiology Exam Date/Time 07/21/2018 06:41:07 EDT Exam CR Abdomen AP Ordering Physician [id number] CARRILLOJOYA Malave Accession Number [id number] CPT4 Codes 22285 () Reason For Exam ileus Report Reason [...] B Transcribed Date and Time: 07/21/2018 7:23 [facility] CR Chest Portableon 07-22-19 19 CR Chest Portable Patient Name: KATHYA HOOPER Diagnostic Radiology Exam Date/Time 07/21/2018 06:40:50 EDT Exam CR Chest Portable Ordering Physician MARIA EUGENIA PEREZ Accession Number [id number] CPT4 Codes 66056 () Reason For Exam ETT placement Report [...] Transcribed Date and Time: 07/21/2018 5:38 Normal [facility] CR Chest Portable Patient Name: KATHYA HOOPER Diagnostic Radiology Exam Date/Time 07/21/2018 01:11:50 EDT Exam CR Chest Portable Ordering Physician MD GRIFFIN NICHOLAS Accession Number [id number] CPT4 Codes 56067 () Reason For Exam s/p bronch Report [...] Transcribed Date and Time: 07/21/2018 1:26 Normal [facility] Comp Metabolic Panelon 07-21 Calcium mass conc 7.9 mg/dL Low 8.4-10.4 [facility] Comment on above: Performed By: #### T SGL #### [facility] [address] [place] [address] ALP enzyme act/vol 85 U/L Normal 38-126 [facility] Comment on above: Performed By: #### T SGL #### [facility] [address] [place] [address] ALT enzyme act/vol 105 U/L High 13-69 [facility] Comment on above: Performed By: #### T SGL #### [facility] [address] [place] [address] Anion gap molar conc 8 Normal [facility] Comment on above: Performed By: #### T SGL #### [facility] [address] [place] [address] AST enzyme act/vol 78 U/L High 15-46 [facility] Comment on above: Performed By: #### T SGL #### [facility] [address] [place] [address] Bilirubin mass conc 1.1 mg/dL Normal 0.2-1.3 [facility] Comment on above: Performed By: #### T SGL #### [facility] [address] [place] [address] CO2 molar conc 33 mmol/L High 22-30 [facility] Comment on above: Performed By: #### T SGL #### [address] [place] [address] Creatinine mass conc 0.90 mg/dL Normal 0.52-1.25 [facility] Comment on above: Performed By: #### T SGL #### [facility] [address] [place] [address] GFR/1.73 sq M predicted among blacks MDRD vol rate/area (S/P/Bld) mL/min/{1.73_m2} Normal >60 [facility] Comment on above: Performed By: #### T SGL #### [facility] [address] [place] [address] GFR/1.73 sq M predicted among non-blacks MDRD vol rate/area (S/P/Bld) mL/min/{1.73_m2} Normal >60 [facility] Comment on above: Result Comment: Sour ce- MDRD equation with creatinine calibration to IDMS(NKDEP) eGFR not recommended for drug dose adjustment Performed By: #### T SGL #### [facility] [address] [place] [address] Glucose mass conc 113 mg/dL High 70-100 [facility] Comment on above: Performed By: #### T SGL #### [facility] [address] [place] [address] Protein mass conc 5.6 g/dL Low 6.3-8.2 [facility] Comment on above: Performed By: #### T SGL #### [facility] [address] [place] [address] Urea nitrogen mass conc 28 mg/dL High 7-20 [facility] Comment on above: Performed By: #### T SGL #### [facility] [address] [place] [address] Chloride molar conc 104 mmol/L Normal 98-107 [facility] Comment on above: Performed By: #### T SGL #### [facility] [address] [place] [address] Potassium molar conc 3.6 mmol/L Normal 3.5-5.1 [facility] Comment on above: Performed By: #### T SGL #### [facility] [address] [place] [address] Sodium molar conc 145 mmol/L Normal 135-145 [facility] Comment on above: Performed By: #### T SGL #### [facility] [address] [place] [address] Albumin mass conc 2.8 g/dL Low 3.5-5.0 [facility] Comment on above: Performed By: #### T SGL #### [facility] [address] [place] [address] Glucose,Bedsideon 07-21-2018 Glucose mass conc 124 mg/dL High 70-100 [facility] Comment on above: Result Comment: Test performed by glucose meter. Results may be 10%-15% lower than serum/plasma values. (CLIA ID [id number]) Performed By: #### H EMDF, PT, BMP3M, PHOS3, MG3, CK3 #### [facility] [address] [place] [address] #### VD25H #### [facility] [address] [place] [address] Glucose mass conc 151 mg/dL High 70-100 [facility] Comment on above: Result Comment: Test performed by glucose meter. Results may be 10%-15% lower than serum/plasma values. (CLIA ID [id number]) Performed By: #### H EMDF, PT, BMP3M, PHOS3, MG3, CK3 #### [facility] [address] [place] [address] #### VD25H #### [facility] [address] [place] [address] Glucose mass conc 127 mg/dL High 70-100 [facility] Comment on above: Result Comment: Test performed by glucose meter. Results may be 10%-15% lower than serum/plasma values. (CLIA ID [id number]) Performed By: #### T SGL #### [facility] [address] [place] [address] Glucose mass conc 113 mg/dL High 70-100 [facility] Comment on above: Result Comment: Test performed by glucose meter. Results may be 10%-15% lower than serum/plasma values. (CLIA ID [id number]) Performed By: #### A DDON #### [address] [place] [address] Hemogram w/ Autodiffon 07-21 Abs Baso Cnt 0.1 10*3/uL Normal 0.0-0.2 [facility] Comment on above: Performed By: #### T SGL #### [address] [place] [address] Abs Neutrophile Cnt 11.0 10*3/uL High 1.8-7.0 [facility] Comment on above: Performed By: #### T SGL #### [facility] [address] [place] [address] Basophils/100 WBC (Bld) 0.5 % Normal 0.0-2.0 [facility] Comment on above: Performed By: #### T SGL #### [address] [place] [address] Eosinophils #/vol (Bld) 0.3 10*3/uL Normal 0.0-0.5 [facility] Comment on above: Performed By: #### T SGL #### [address] [place] [address] Eosinophils/100 WBC (Bld) 1.9 % Normal 1.0-6.0 [facility] Comment on above: Performed By: #### T SGL #### [address] [place] [address] Erythrocyte distribution width Ratio (RBC) 13.7 % Normal 11.5-14.5 [facility] Comment on above: Performed By: #### T SGL #### [address] [address] Granulocytes/100 WBC (Bld) 81.0 % High 40.0-80.0 [facility] Comment on above: Performed By: #### T SGL #### [address] [address] Hematocrit Volume Fraction (Bld) 32.1 % Low 40.0-52.0 [facility] Comment on above: Performed By: #### T SGL #### [address] [place] [address] Hemoglobin mass conc (Bld) 10.7 g/dL Low 13.0-18.0 [facility] Comment on above: Performed By: #### T SGL #### [address] [address] Lymphocytes #/vol (Bld) 1.3 10*3/uL Normal 1.0-4.3 [facility] Comment on above: Performed By: #### T SGL #### [address] [place] [address] Lymphocytes/100 WBC (Bld) 9.8 % Low 20.0-40.0 [facility] Comment on above: Performed By: #### T SGL #### [address] [place] [address] MCH Entitic mass (RBC) 29.0 pg Normal 26.0-34.0 [facility] Comment on above: Performed By: #### T SGL #### [address] [place] [address] MCHC mass conc (RBC) 33.4 % Normal 32.0-36.0 [facility] Comment on above: Performed By: #### T SGL #### [address] [place] [address] MCV Entitic volume (RBC) 86.9 fL Normal 80.0-98.0 [facility] Comment on above: Performed By: #### T SGL #### [facility] [address] [place] [address] Monocytes #/vol (Bld) 0.9 10*3/uL High 0.0-0.8 [facility] Comment on above: Performed By: #### T SGL #### [address] [place] [address] Monocytes/100 WBC (Bld) 6.8 % Normal 2.0-10.0 [facility] Comment on above: Performed By: #### T SGL #### [address] [place] [address] Platelet mean volume Entitic volume (Bld) 7.4 fL Normal 7.4-10.4 [facility] Comment on above: Performed By: #### T SGL #### [address] [place] [address] Platelets #/vol (Bld) 367 10*3/uL Normal 140-440 [facility] Comment on above: Performed By: #### T SGL #### [address] [place] [address] RBC #/vol (Bld) 3.69 10*6/uL Low 4.40-5.90 [facility] Comment on above: Performed By: #### T SGL #### [address] [place] [address] WBC #/vol (Bld) 13.6 10*3/uL High 3.6-10.7 [facility] Comment on above: Performed By: #### T SGL #### [address] [place] [address] Magnesiumon 07-21-2018 Magnesium mass conc 2.6 mg/dL High 1.6-2.3 [facility] Comment on above: Performed By: #### T SGL #### [facility] [address] [facility] [place] [address] Phosphoruson 07-21-2018 Phosphate mass conc 4.2 mg/dL Normal 2.5-4.5 [facility] Comment on above: Performed By: #### T SGL #### [facility] [address] [place] [facility] [place] [address] Triglycerideon 07-21-2018 Triglyceride mass conc 105 mg/dL Normal <150 [facility] Comment on above: Performed By: #### T SGL #### [facility] [address] [place] [address] Add on test from HISon 07-20 Add on test from HIS Accepted Normal [facility] Comment on above: Result Comment: Spec imen available & acceptable for analysis. Performed By: #### A DDON #### [address] [place] [address] Basic Metabolic Panelon 06-30 Calcium mass conc 7.7 mg/dL Low 8.4-10.4 [facility] Comment on above: Performed By: #### A DDON #### [address] [place] Glucose mass conc 96 mg/dL Normal 70-100 [facility] Comment on above: Performed By: #### A DDON #### [address] [place] [address] Urea nitrogen mass conc 22 mg/dL High 7-20 [facility] Comment on above: Performed By: #### A DDON #### [address] [place] [address] Anion gap molar conc 10 Normal [facility] Comment on above: Performed By: #### A DDON #### [address] [place], [place] CO2 molar conc 29 mmol/L Normal 22-30 [facility] Comment on above: Performed By: #### A DDON #### [address] [place] Creatinine mass conc 0.87 mg/dL Normal 0.52-1.25 [facility] Comment on above: Performed By: #### A DDON #### [address] [place], [place] GFR/1.73 sq M predicted among blacks MDRD vol rate/area (S/P/Bld) mL/min/{1.73_m2} Normal >60 [facility] Comment on above: Performed By: #### A DDON #### [address] [place], [place] GFR/1.73 sq M predicted among non-blacks MDRD vol rate/area (S/P/Bld) mL/min/{1.73_m2} Normal >60 [facility] Comment on above: Result Comment: Sour ce- MDRD equation with creatinine calibration to IDMS(NKDEP) eGFR not recommended for drug dose adjustment Performed By: #### A DDON #### [address] [place], [place] Potassium molar conc 3.6 mmol/L Normal 3.5-5.1 [facility] Comment on above: Performed By: #### A DDON #### [address] Chloride molar conc 105 mmol/L Normal 98-107 [facility] Comment on above: Performed By: #### A DDON #### [address] Sodium molar conc 144 mmol/L Normal 135-145 [facility] Comment on above: Performed By: #### A DDON #### [address] CR Abdomen APon 07-20-2018 CR Abdomen AP Patient Name: KATHYA HOOPER Diagnostic Radiology Exam Date/Time 07/20/2018 08:39:45 EDT Exam CR Abdomen AP Ordering Physician JOYA ROJAS Accession Number [id number] CPT4 Codes 81741 () Reason For Exam ileus Report Clinical [...] Transcribed Date and Time: 07/20/2018 9:29 Normal [facility] CR Chest Portableon 07-21-19 19 CR Chest Portable Patient Name: KATHYA HOOPER Diagnostic Radiology Exam Date/Time 07/20/2018 08:39:26 EDT Exam CR Chest Portable Ordering Physician MARIA EUGENIA PEREZ Accession Number [id number] CPT4 Codes 20525 () Reason For Exam ETT placement Report [...] Transcribed Date and Time: 07/20/2018 9:28 Normal [facility] CT Abdomen/Pelvis w/ Contras ton 07-20-2018 CT Abdomen/Pelvis w/ Contrast Patient Name: KATHYA HOOPER CT Exam Date/Time 07/20/2018 11:30:[address] Abdomen/Pelvis w/ IV Contrast (IV Onl Ordering Physician [id number] CARRILLOJOYA Malave Accession Number [id number] CPT4 Codes 22911 (CT Abdomen/Pelvis w/ IV Contrast (IV Onl) [...] Transcribed Date and Time: 07/20/2018 1:10 Normal [facility] CT Chest w/ Contraston 07-20 CT Chest w/ Contrast Patient Name: KATHYA RAY CT Exam Date/Time 07/20/2018 11:30:[address] Chest w/ Contrast Ordering Physician JOYA ROJAS Accession Number [id number] CPT4 Codes 69055 (), Q9967 (CT ISOVUE [id number]) Reason For Exam SOB, possible pneumonia Report [...] Transcribed Date and Time: 07/20/2018 1:28 Normal [facility] Glucose,Bedsideon 07-20-2018 Glucose mass conc 128 mg/dL High 70-100 [facility] [employer] [facility] Comment on above: Result Comment: Test performed by glucose meter. Results may be 10%-15% lower than serum/plasma values. (CLIA ID [id number]) Performed By: #### A DDON #### [facility] [email or web address] [address] [place] [address] Hemogram w/ Autodiffon 07-20 Abs Baso Cnt 0.1 10*3/uL Normal 0.0-0.2 [facility] Comment on above: Performed By: #### H EMDF, PT, BMP3M, PHOS3, MG3, CK3 #### [facility] [email or web address] [address] [place] [address] #### VD25H #### [facility] [address] [place] [address] Abs Neutrophile Cnt 13.0 10*3/uL High 1.8-7.0 [facility] Comment on above: Performed By: #### H EMDF, PT, BMP3M, PHOS3, MG3, CK3 #### [facility] [address] [place], [place] #### VD25H #### [facility] [address] [place] [address] Basophils/100 WBC (Bld) 0.3 % Normal 0.0-2.0 [facility] Comment on above: Performed By: #### H EMDF, PT, BMP3M, PHOS3, MG3, CK3 #### [facility] [address] [place], [place] #### VD25H #### [facility] [address] [place] [address] Eosinophils #/vol (Bld) 0.3 10*3/uL Normal 0.0-0.5 [facility] Comment on above: Performed By: #### H EMDF, PT, BMP3M, PHOS3, MG3, CK3 #### [facility] [address] [place], [place] #### VD25H #### [facility] [address] [place] [address] Eosinophils/100 WBC (Bld) 1.9 % Normal 1.0-6.0 [facility] Comment on above: Performed By: #### H EMDF, PT, BMP3M, PHOS3, MG3, CK3 #### [facility] [address] [place], [place] #### VD25H #### [facility] [address] [place] [address] Erythrocyte distribution width Ratio (RBC) 13.3 % Normal 11.5-14.5 [facility] Comment on above: Performed By: #### H EMDF, PT, BMP3M, PHOS3, MG3, CK3 #### [address] #### VD25H #### [facility] [address] [place] [address] Granulocytes/100 WBC (Bld) 81.8 % High 40.0-80.0 [facility] Comment on above: Performed By: #### H EMDF, PT, BMP3M, PHOS3, MG3, CK3 #### [address] [place], [place] #### VD25H #### [facility] [address] [place] [address] Hematocrit Volume Fraction (Bld) 33.6 % Low 40.0-52.0 [facility] Comment on above: Performed By: #### H EMDF, PT, BMP3M, PHOS3, MG3, CK3 #### [address] [place] #### VD25H #### [facility] [address] [place] [address] Hemoglobin mass conc (Bld) 11.4 g/dL Low 13.0-18.0 [facility] Comment on above: Performed By: #### H EMDF, PT, BMP3M, PHOS3, MG3, CK3 #### [address] #### VD25H #### [facility] [address] [place] [address] Lymphocytes #/vol (Bld) 1.5 10*3/uL Normal 1.0-4.3 [facility] Comment on above: Performed By: #### H EMDF, PT, BMP3M, PHOS3, MG3, CK3 #### [address] [place], [place] #### VD25H #### [facility] [address] [place] [address] Lymphocytes/100 WBC (Bld) 9.2 % Low 20.0-40.0 [facility] Comment on above: Performed By: #### H EMDF, PT, BMP3M, PHOS3, MG3, CK3 #### [address] #### VD25H #### [facility] [address] [place] [address] MCH Entitic mass (RBC) 29.3 pg Normal 26.0-34.0 [facility] Comment on above: Performed By: #### H EMDF, PT, BMP3M, PHOS3, MG3, CK3 #### [address] [place] #### VD25H #### [facility] [address] [place] [address] MCHC mass conc (RBC) 33.9 % Normal 32.0-36.0 [facility] Comment on above: Performed By: #### H EMDF, PT, BMP3M, PHOS3, MG3, CK3 #### [address] #### VD25H #### [facility] [address] [place] [address] MCV Entitic volume (RBC) 86.5 fL Normal 80.0-98.0 [facility] Comment on above: Performed By: #### H EMDF, PT, BMP3M, PHOS3, MG3, CK3 #### [address] #### VD25H #### [address] [place] [address] Monocytes #/vol (Bld) 1.1 10*3/uL High 0.0-0.8 [facility] Comment on above: Performed By: #### H EMDF, PT, BMP3M, PHOS3, MG3, CK3 #### [address] #### VD25H #### [facility] [address] [place] [address] Monocytes/100 WBC (Bld) 6.8 % Normal 2.0-10.0 [facility] Comment on above: Performed By: #### H EMDF, PT, BMP3M, PHOS3, MG3, CK3 #### [address] [place], [place] #### VD25H #### [facility] [address] [place] [address] Platelet mean volume Entitic volume (Bld) 7.5 fL Normal 7.4-10.4 [facility] Comment on above: Performed By: #### H EMDF, PT, BMP3M, PHOS3, MG3, CK3 #### [address] [place], [place] #### VD25H #### [facility] [address] [place] [address] Platelets #/vol (Bld) 375 10*3/uL Normal 140-440 [facility] Comment on above: Performed By: #### H EMDF, PT, BMP3M, PHOS3, MG3, CK3 #### [address] #### VD25H #### [address] [place] [address] RBC #/vol (Bld) 3.88 10*6/uL Low 4.40-5.90 [facility] Comment on above: Performed By: #### H EMDF, PT, BMP3M, PHOS3, MG3, CK3 #### [address] #### VD25H #### [facility] [address] [place] [address] WBC #/vol (Bld) 15.9 10*3/uL High 3.6-10.7 [facility] Comment on above: Performed By: #### H EMDF, PT, BMP3M, PHOS3, MG3, CK3 #### [address] #### VD25H #### [facility] [address] [place] [address] Phosphoruson 07-20-2018 Phosphate mass conc 5.5 mg/dL High 2.5-4.5 [facility] Comment on above: Performed By: #### A DDON #### [address] [place], [place] Add on test from HISon 07-19 Add on test from HIS Accepted Normal [facility] Comment on above: Result Comment: Spec imen available & acceptable for analysis. Performed By: #### H EMDF, PT, BMP3M, PHOS3, MG3, CK3 #### [address] [place], [place] #### VD25H #### [facility] [address] [place] [address] Arterial Blood Gaseson 07-19 CO2 molar conc 31.5 mmol/L High 23.0-27.0 [facility] Comment on above: Performed By: #### H EMDF, PT, BMP3M, PHOS3, MG3, CK3 #### [address] [place], [place] #### VD25H #### [facility] [address] [place] [address] HCO3 molar conc (Bld) 30.2 mmol/L High 21.0-25.0 [facility] Comment on above: Performed By: #### H EMDF, PT, BMP3M, PHOS3, MG3, CK3 #### [address] [place], [place] #### VD25H #### [facility] [address] [place] [address] Hemoglobin mass conc (Bld) 11.7 g/dL Normal ScreenOnly [facility] Comment on above: Performed By: #### H EMDF, PT, BMP3M, PHOS3, MG3, CK3 #### [address] #### VD25H #### [facility] [address] [place] [address] Oxygen ppres (Bld) 85.1 mm[Hg] Normal 80.0-100.0 [facility] Comment on above: Performed By: #### H EMDF, PT, BMP3M, PHOS3, MG3, CK3 #### [address] [place] #### VD25H #### [facility] [address] [place] [address] Oxygen saturation in Blood 95.9 % Normal 95.0-100.0 [facility] Comment on above: Performed By: #### H EMDF, PT, BMP3M, PHOS3, MG3, CK3 #### [address] [place] #### VD25H #### [facility] [address] [place] [address] pCO2 43.6 mm[Hg] Normal 35.0-45.0 [facility] Comment on above: Performed By: #### H EMDF, PT, BMP3M, PHOS3, MG3, CK3 #### [address] #### VD25H #### [facility] [address] [place] [address] pH (Bld) 7.458 High 7.350-7.450 [facility] [facility] Comment on above: Performed By: #### H EMDF, PT, BMP3M, PHOS3, MG3, CK3 #### [address] [place], [place] #### VD25H #### [place] [address] [place] [address] Std Base Excess 5.7 mmol/L High -3.0-3.0 [facility] Comment on above: Performed By: #### H EMDF, PT, BMP3M, PHOS3, MG3, CK3 #### [address] [place], [place] #### VD25H #### [facility] [address] [place] [address] FIO2 40% Normal [facility] Comment on above: Performed By: #### H EMDF, PT, BMP3M, PHOS3, MG3, CK3 #### [place] [address] [place], [place] #### VD25H #### [facility] [address] [place] [address] Basic Metabolic Panelon 03-2 Calcium mass conc 7.5 mg/dL Low 8.4-10.4 [facility] Comment on above: Performed By: #### H EMDF, PT, BMP3M, PHOS3, MG3, CK3 #### [place] [address] [address] [facility], [place] #### VD25H #### [facility] [address] [place] [address] Glucose mass conc 274 mg/dL High 70-100 [facility] Comment on above: Performed By: #### H EMDF, PT, BMP3M, PHOS3, MG3, CK3 #### [place] [address] [place], [place] #### VD25H #### [facility] [address] [place] [address] Anion gap molar conc 6 Normal [facility] Comment on above: Performed By: #### H EMDF, PT, BMP3M, PHOS3, MG3, CK3 #### [place] [address] [address] [facility], [place] #### VD25H #### [facility] [address] [place] [address] CO2 molar conc 31 mmol/L High 22-30 [facility] Comment on above: Performed By: #### H EMDF, PT, BMP3M, PHOS3, MG3, CK3 #### [place] [address] [address] [facility], [place] #### VD25H #### [facility] [address] [place] [address] Creatinine mass conc 0.64 mg/dL Normal 0.52-1.25 [facility] Comment on above: Performed By: #### H EMDF, PT, BMP3M, PHOS3, MG3, CK3 #### [place] [address] [address] [facility], [place] #### VD25H #### [facility] [address] [place] [address] GFR/1.73 sq M predicted among blacks MDRD vol rate/area (S/P/Bld) mL/min/{1.73_m2} Normal >60 [facility] Comment on above: Performed By: #### H EMDF, PT, BMP3M, PHOS3, MG3, CK3 #### [place] [address] [place] #### VD25H #### [facility] [address] [place] [address] GFR/1.73 sq M predicted among non-blacks MDRD vol rate/area (S/P/Bld) mL/min/{1.73_m2} Normal >60 [facility] Comment on above: Result Comment: Sour ce- MDRD equation with creatinine calibration to IDMS(NKDEP) eGFR not recommended for drug dose adjustment Performed By: #### H EMDF, PT, BMP3M, PHOS3, MG3, CK3 #### [address] #### VD25H #### [facility] [address] [place] [address] Urea nitrogen mass conc 15 mg/dL Normal 7-20 [facility] Comment on above: Performed By: #### H EMDF, PT, BMP3M, PHOS3, MG3, CK3 #### [place] [address] [place] #### VD25H #### [facility] [address] [place] [address] Chloride molar conc 105 mmol/L Normal 98-107 [facility] Comment on above: Performed By: #### H EMDF, PT, BMP3M, PHOS3, MG3, CK3 #### [address] #### VD25H #### [facility] [address] [place] [address] Potassium molar conc 4.3 mmol/L Normal 3.5-5.1 [facility] Comment on above: Performed By: #### H EMDF, PT, BMP3M, PHOS3, MG3, CK3 #### [facility] [address] [place] [address] #### VD25H #### [facility] [address] [place] [address] Sodium molar conc 141 mmol/L Normal 135-145 [facility] Comment on above: Performed By: #### H EMDF, PT, BMP3M, PHOS3, MG3, CK3 #### [facility] [address] [place] [address] #### VD25H #### [facility] [address] [place] [address] CR Abdomen APon 07-19-2018 CR Abdomen AP Patient Name: KATHYA HOOPER Diagnostic Radiology Exam Date/Time 07/19/2018 06:44:12 EDT Exam CR Abdomen AP Ordering Physician [id number] JOYA PERRY Accession Number [id number] CPT4 Codes 62571 () Reason For Exam ileus Report Abdomen: [...] Transcribed Date and Time: 07/19/2018 7:46 Normal [facility] CR Chest Portableon 07-20-19 19 CR Chest Portable Patient Name: KATHYA HOOPER Diagnostic Radiology Exam Date/Time 07/19/2018 06:43:52 EDT Exam CR Chest Portable Ordering Physician MARIA EUGENIA PEREZ Accession Number [id number] CPT4 Codes 91830 () Reason For Exam ETT placement Report [...] Transcribed Date and Time: 07/19/2018 7:44 Normal [facility] Glucose,Bedsideon 07-19-2018 Glucose mass conc 95 mg/dL Normal 70-100 [facility] Comment on above: Result Comment: Test performed by glucose meter. Results may be 10%-15% lower than serum/plasma values. (CLIA ID [id number]) Performed By: #### H EMDF, PT, BMP3M, PHOS3, MG3, CK3 #### [facility] [address] [place], [place] #### VD25H #### [facility] [address] [place] [address] Hemogram w/ Autodiffon 07-19 Abs Baso Cnt 0.1 10*3/uL Normal 0.0-0.2 [facility] Comment on above: Performed By: #### H EMDF, PT, BMP3M, PHOS3, MG3, CK3 #### [facility] [address] [place], [place] #### VD25H #### [facility] [address] [place] [address] Abs Neutrophile Cnt 9.8 10*3/uL High 1.8-7.0 [facility] Comment on above: Performed By: #### H EMDF, PT, BMP3M, PHOS3, MG3, CK3 #### [facility] [address] [place] #### VD25H #### [facility] [address] [place] [address] Basophils/100 WBC (Bld) 0.5 % Normal 0.0-2.0 [facility] Comment on above: Performed By: #### H EMDF, PT, BMP3M, PHOS3, MG3, CK3 #### [address] #### VD25H #### [facility] [address] [place] [address] Eosinophils #/vol (Bld) 0.3 10*3/uL Normal 0.0-0.5 [facility] Comment on above: Performed By: #### H EMDF, PT, BMP3M, PHOS3, MG3, CK3 #### [address] #### VD25H #### [facility] [address] [place] [address] Eosinophils/100 WBC (Bld) 2.5 % Normal 1.0-6.0 [facility] Comment on above: Performed By: #### H EMDF, PT, BMP3M, PHOS3, MG3, CK3 #### [address] #### VD25H #### [facility] [address] [place] [address] Erythrocyte distribution width Ratio (RBC) 13.3 % Normal 11.5-14.5 [facility] Comment on above: Performed By: #### H EMDF, PT, BMP3M, PHOS3, MG3, CK3 #### [address] #### VD25H #### [facility] [address] [place] [address] Granulocytes/100 WBC (Bld) 80.4 % High 40.0-80.0 [facility] Comment on above: Performed By: #### H EMDF, PT, BMP3M, PHOS3, MG3, CK3 #### [facility] [address] [place] #### VD25H #### [facility] [address] [place] [address] Hematocrit Volume Fraction (Bld) 30.6 % Low 40.0-52.0 [facility] Comment on above: Performed By: #### H EMDF, PT, BMP3M, PHOS3, MG3, CK3 #### [place] [address] [place] #### VD25H #### [facility] [address] [place] [address] Hemoglobin mass conc (Bld) 10.5 g/dL Low 13.0-18.0 [facility] Comment on above: Performed By: #### H EMDF, PT, BMP3M, PHOS3, MG3, CK3 #### [place] [address] [place] #### VD25H #### [facility] [address] [place] [address] Lymphocytes #/vol (Bld) 1.1 10*3/uL Normal 1.0-4.3 [facility] Comment on above: Performed By: #### H EMDF, PT, BMP3M, PHOS3, MG3, CK3 #### [facility] [address] [place] #### VD25H #### [facility] [address] [place] [address] Lymphocytes/100 WBC (Bld) 9.1 % Low 20.0-40.0 [facility] Comment on above: Performed By: #### H EMDF, PT, BMP3M, PHOS3, MG3, CK3 #### [place] [address] [place] #### VD25H #### [facility] [address] [place] [address] MCH Entitic mass (RBC) 29.7 pg Normal 26.0-34.0 [facility] Comment on above: Performed By: #### H EMDF, PT, BMP3M, PHOS3, MG3, CK3 #### [facility] [address] [place] #### VD25H #### [facility] [address] [place] [address] MCHC mass conc (RBC) 34.3 % Normal 32.0-36.0 [facility] Comment on above: Performed By: #### H EMDF, PT, BMP3M, PHOS3, MG3, CK3 #### [place] [address] [place] #### VD25H #### [facility] [address] [place] [address] MCV Entitic volume (RBC) 86.7 fL Normal 80.0-98.0 [facility] Comment on above: Performed By: #### H EMDF, PT, BMP3M, PHOS3, MG3, CK3 #### [address] [place] #### VD25H #### [facility] [address] [place] [address] Monocytes #/vol (Bld) 0.9 10*3/uL High 0.0-0.8 [facility] Comment on above: Performed By: #### H EMDF, PT, BMP3M, PHOS3, MG3, CK3 #### [address] [place] #### VD25H #### [facility] [address] [place] [address] Monocytes/100 WBC (Bld) 7.5 % Normal 2.0-10.0 [facility] Comment on above: Performed By: #### H EMDF, PT, BMP3M, PHOS3, MG3, CK3 #### [place] [address] [place] #### VD25H #### [facility] [address] [place] [address] Platelet mean volume Entitic volume (Bld) 7.3 fL Low 7.4-10.4 [facility] Comment on above: Performed By: #### H EMDF, PT, BMP3M, PHOS3, MG3, CK3 #### [address] #### VD25H #### [facility] [address] [place] [address] Platelets #/vol (Bld) 329 10*3/uL Normal 140-440 [facility] Comment on above: Performed By: #### H EMDF, PT, BMP3M, PHOS3, MG3, CK3 #### [address] #### VD25H #### [place] [address] [place] [address] RBC #/vol (Bld) 3.53 10*6/uL Low 4.40-5.90 [facility] Comment on above: Performed By: #### H EMDF, PT, BMP3M, PHOS3, MG3, CK3 #### [address] #### VD25H #### [place] [address] [place] [address] WBC #/vol (Bld) 12.2 10*3/uL High 3.6-10.7 [facility] Comment on above: Performed By: #### H EMDF, PT, BMP3M, PHOS3, MG3, CK3 #### [address] #### VD25H #### [place] [address] [place] [address] Magnesiumon 07-19-2018 Magnesium mass conc 2.3 mg/dL Normal 1.6-2.3 [facility] Comment on above: Performed By: #### H EMDF, PT, BMP3M, PHOS3, MG3, CK3 #### [facility] [address] [place], [place] #### VD25H #### [facility] [address] [place] [address] Procalcitoninon 07-19-2018 Protein mass conc 0.15 ng/mL Abnormal <0.10 [facility] Comment on above: Performed By: #### H EMDF, PT, BMP3M, PHOS3, MG3, CK3 #### [facility] [address] [place] #### VD25H #### [facility] [address] [place] [address] Interpretation See Below Normal [facility] Comment on above: Result Comment: PCT <0.50 = Low risk of severe sepsis and/or septic shock. PCT >2.00 = High risk of severe sepsis and/or septic shock. Performed By: #### H EMDF, PT, BMP3M, PHOS3, MG3, CK3 #### [facility] [address] [place], [place] #### VD25H #### [facility] [address] [place] [address] VL Venous Duplex US Lower Ex t Bilateralon 07-19-2018 VL Venous Duplex US Lower Ext Bilateral Patient Name: KATHYA HOOPER Ultrasound Exam Date/Time 07/19/2018 11:10:14 EDT Exam VL Venous Duplex US Lower Ext Bilateral Ordering Physician ETIENNE MARTÍNEZ JULIE Accession Number [id number] CPT4 Codes 72837 () Reason For Exam edema Report [facility] --- Lower Extremity Venous Duplex Report Patient Name: Kathya Hooper : 1955 Study Date: 07/19/2018 W (63yrs) Age: 63 Account: [id number] Gender: M Loc: T209 BP: Ordering: Yesenia Martínez Technologist: Ordering Physician: Yesenia Martínez English Professor: León Chaidez Lissette, [facility] Interpreting Physician: Ricardo Hall MD --- Location: [facility] --- INDICATIONS: Edema. bilateral calf edema. --- [...] performed. The images were obtained using a [employer] E9 vascular ultrasound machine. --- VENOUS FLOW [...] --+ Electronically signed by: Ricardo Hall MD [id number] Final Dictated: 07/20/2018 10:49 am Dictating Physician: RICARDO HALL Signed Date and Time: 07/19/2018 11:03 am Signed by: RICARDO HALL Normal [facility] Basic Metabolic Panelon - Calcium mass conc 7.9 mg/dL Low 8.4-10.4 [facility] [employer] [facility] Comment on above: Performed By: #### H EMDF, PT, BMP3M, PHOS3, MG3, CK3 #### [email or web address] [address] [place], [place] #### VD25H #### [facility] [address] [facility] [place] [address] Glucose mass conc 113 mg/dL High 70-100 [facility] Comment on above: Performed By: #### H EMDF, PT, BMP3M, PHOS3, MG3, CK3 #### [facility] [employer] [address] [place], [place] #### VD25H #### [facility] [email or web address] [address] [facility] [place] [address] Anion gap molar conc 7 Normal [facility] Comment on above: Performed By: #### H EMDF, PT, BMP3M, PHOS3, MG3, CK3 #### [facility] [address] [place], [place] #### VD25H #### [facility] [email or web address] [address] [place] [address] CO2 molar conc 31 mmol/L High 22-30 [facility] Comment on above: Performed By: #### H EMDF, PT, BMP3M, PHOS3, MG3, CK3 #### [facility] [address] [place] [address] #### VD25H #### [facility] [address] [place] [address] Creatinine mass conc 0.59 mg/dL Normal 0.52-1.25 [facility] Comment on above: Performed By: #### H EMDF, PT, BMP3M, PHOS3, MG3, CK3 #### [address] #### VD25H #### [facility] [address] [place] [address] GFR/1.73 sq M predicted among blacks MDRD vol rate/area (S/P/Bld) mL/min/{1.73_m2} Normal >60 [facility] Comment on above: Performed By: #### H EMDF, PT, BMP3M, PHOS3, MG3, CK3 #### [address] #### VD25H #### [facility] [address] [place] [address] GFR/1.73 sq M predicted among non-blacks MDRD vol rate/area (S/P/Bld) mL/min/{1.73_m2} Normal >60 [facility] Comment on above: Result Comment: Sour ce- MDRD equation with creatinine calibration to IDMS(NKDEP) eGFR not recommended for drug dose adjustment Performed By: #### H EMDF, PT, BMP3M, PHOS3, MG3, CK3 #### [address] #### VD25H #### [facility] [address] [place] [address] Urea nitrogen mass conc 19 mg/dL Normal 7-20 [facility] Comment on above: Performed By: #### H EMDF, PT, BMP3M, PHOS3, MG3, CK3 #### [facility] [address] [place] [address] #### VD25H #### [facility] [address] [place] [address] Chloride molar conc 104 mmol/L Normal 98-107 [facility] Comment on above: Performed By: #### H EMDF, PT, BMP3M, PHOS3, MG3, CK3 #### [facility] [address] [place] [address] #### VD25H #### [facility] [address] [place] [address] Potassium molar conc 3.4 mmol/L Low 3.5-5.1 [facility] Comment on above: Performed By: #### H EMDF, PT, BMP3M, PHOS3, MG3, CK3 #### [place] [address] [place] [address] #### VD25H #### [facility] [address] [place] [address] Sodium molar conc 142 mmol/L Normal 135-145 [facility] Comment on above: Performed By: #### H EMDF, PT, BMP3M, PHOS3, MG3, CK3 #### [place] [address] [place] [address] #### VD25H #### [facility] [address] [place] [address] CR Abdomen APon 07-18-2018 CR Abdomen AP Patient Name: KATHYA HOOPER Diagnostic Radiology Exam Date/Time 07/18/2018 06:52:18 EDT Exam CR Abdomen AP Ordering Physician JOYA ROJAS Accession Number [id number] CPT4 Codes 50649 () Reason For Exam ileus Report CLINICAL [...] Transcribed Date and Time: 07/18/2018 2:33 Normal [facility] CR Chest Portableon 07-19-19 CR Chest Portable Patient Name: KATHYA HOOPER Diagnostic Radiology Exam Date/Time 07/18/2018 06:52:50 EDT Exam CR Chest Portable Ordering Physician MARIA EUGENIA PEREZ Accession Number [id number] CPT4 Codes 53371 () Reason For Exam ETT placement Report [...] Transcribed Date and Time: 07/18/2018 2:32 Normal [facility] Hemogram w/ Autodiffon 07-18 Abs Baso Cnt 0.0 10*3/uL Normal 0.0-0.2 [facility] Comment on above: Performed By: #### H EMDF, PT, BMP3M, PHOS3, MG3, CK3 #### [facility] [address] [place], [place] #### VD25H #### [facility] [address] [place] [address] Abs Neutrophile Cnt 8.6 10*3/uL High 1.8-7.0 [facility] Comment on above: Performed By: #### H EMDF, PT, BMP3M, PHOS3, MG3, CK3 #### [address] #### VD25H #### [facility] [address] [place] [address] Basophils/100 WBC (Bld) 0.4 % Normal 0.0-2.0 [facility] Comment on above: Performed By: #### H EMDF, PT, BMP3M, PHOS3, MG3, CK3 #### [address] #### VD25H #### [facility] [address] [place] [address] Eosinophils #/vol (Bld) 0.2 10*3/uL Normal 0.0-0.5 [facility] Comment on above: Performed By: #### H EMDF, PT, BMP3M, PHOS3, MG3, CK3 #### [address] #### VD25H #### [facility] [address] [place] [address] Eosinophils/100 WBC (Bld) 2.1 % Normal 1.0-6.0 [facility] Comment on above: Performed By: #### H EMDF, PT, BMP3M, PHOS3, MG3, CK3 #### [address] [address] #### VD25H #### [facility] [address] [place] [address] Erythrocyte distribution width Ratio (RBC) 13.4 % Normal 11.5-14.5 [facility] Comment on above: Performed By: #### H EMDF, PT, BMP3M, PHOS3, MG3, CK3 #### [address] #### VD25H #### [facility] [address] [place] [address] Granulocytes/100 WBC (Bld) 80.0 % Normal 40.0-80.0 [facility] Comment on above: Performed By: #### H EMDF, PT, BMP3M, PHOS3, MG3, CK3 #### [address] #### VD25H #### [place] [address] [place] [address] Hematocrit Volume Fraction (Bld) 37.3 % Low 40.0-52.0 [facility] Comment on above: Performed By: #### H EMDF, PT, BMP3M, PHOS3, MG3, CK3 #### [address] #### VD25H #### [place] [address] [place] [address] Hemoglobin mass conc (Bld) 12.6 g/dL Low 13.0-18.0 [facility] Comment on above: Performed By: #### H EMDF, PT, BMP3M, PHOS3, MG3, CK3 #### [address] #### VD25H #### [facility] [address] [place] [address] Lymphocytes #/vol (Bld) 1.1 10*3/uL Normal 1.0-4.3 [facility] Comment on above: Performed By: #### H EMDF, PT, BMP3M, PHOS3, MG3, CK3 #### [address] #### VD25H #### [facility] [address] [place] [address] Lymphocytes/100 WBC (Bld) 10.3 % Low 20.0-40.0 [facility] Comment on above: Performed By: #### H EMDF, PT, BMP3M, PHOS3, MG3, CK3 #### [place] [address] [place], [place] #### VD25H #### [facility] [address] [place] [address] MCH Entitic mass (RBC) 29.4 pg Normal 26.0-34.0 [facility] Comment on above: Performed By: #### H EMDF, PT, BMP3M, PHOS3, MG3, CK3 #### [address] #### VD25H #### [place] [address] [place] [address] MCHC mass conc (RBC) 33.9 % Normal 32.0-36.0 [facility] Comment on above: Performed By: #### H EMDF, PT, BMP3M, PHOS3, MG3, CK3 #### [place] [address] [place] #### VD25H #### [facility] [address] [place] [address] MCV Entitic volume (RBC) 86.8 fL Normal 80.0-98.0 [facility] Comment on above: Performed By: #### H EMDF, PT, BMP3M, PHOS3, MG3, CK3 #### [address] #### VD25H #### [facility] [address] [facility] [place] [address] Monocytes #/vol (Bld) 0.8 10*3/uL Normal 0.0-0.8 [facility] Comment on above: Performed By: #### H EMDF, PT, BMP3M, PHOS3, MG3, CK3 #### [facility] [address] [place], [place] #### VD25H #### [facility] [address] [place] [address] Monocytes/100 WBC (Bld) 7.2 % Normal 2.0-10.0 [facility] Comment on above: Performed By: #### H EMDF, PT, BMP3M, PHOS3, MG3, CK3 #### [address] [place], [place] #### VD25H #### [facility] [address] [place] [address] Platelet mean volume Entitic volume (Bld) 7.8 fL Normal 7.4-10.4 [facility] Comment on above: Performed By: #### H EMDF, PT, BMP3M, PHOS3, MG3, CK3 #### [address] #### VD25H #### [facility] [address] [place] [address] Platelets #/vol (Bld) 301 10*3/uL Normal 140-440 [facility] Comment on above: Performed By: #### H EMDF, PT, BMP3M, PHOS3, MG3, CK3 #### [address] #### VD25H #### [facility] [address] [place] [address] RBC #/vol (Bld) 4.29 10*6/uL Low 4.40-5.90 [facility] Comment on above: Performed By: #### H EMDF, PT, BMP3M, PHOS3, MG3, CK3 #### [address] #### VD25H #### [facility] [address] [place] [address] WBC #/vol (Bld) 10.8 10*3/uL High 3.6-10.7 [facility] Comment on above: Performed By: #### H EMDF, PT, BMP3M, PHOS3, MG3, CK3 #### [address] #### VD25H #### [facility] [address] [place] [address] Arterial Blood Gaseson 07-17 CO2 molar conc 29.7 mmol/L High 23.0-27.0 [facility] Comment on above: Performed By: #### H EMDF, PT, BMP3M, PHOS3, MG3, CK3 #### [address] #### VD25H #### [facility] [address] [place] [address] HCO3 molar conc (Bld) 28.4 mmol/L High 21.0-25.0 [facility] Comment on above: Performed By: #### H EMDF, PT, BMP3M, PHOS3, MG3, CK3 #### [address] #### VD25H #### [facility] [address] [place] [address] Hemoglobin mass conc (Bld) 11.1 g/dL Normal ScreenOnly [facility] Comment on above: Performed By: #### H EMDF, PT, BMP3M, PHOS3, MG3, CK3 #### [address] #### VD25H #### [facility] [address] [place] [address] Oxygen ppres (Bld) 109.2 mm[Hg] High 80.0-100.0 [facility] Comment on above: Performed By: #### H EMDF, PT, BMP3M, PHOS3, MG3, CK3 #### [address] #### VD25H #### [place] [address] [place] [address] Oxygen saturation in Blood 97.8 % Normal 95.0-100.0 [facility] Comment on above: Performed By: #### H EMDF, PT, BMP3M, PHOS3, MG3, CK3 #### [place] [address] [address] [place], [place] #### VD25H #### [facility] [address] [place] [address] pCO2 39.8 mm[Hg] Normal 35.0-45.0 [facility] Comment on above: Performed By: #### H EMDF, PT, BMP3M, PHOS3, MG3, CK3 #### [address] #### VD25H #### [facility] [address] [place] [address] pH (Bld) 7.472 High 7.350-7.450 [facility] Comment on above: Performed By: #### H EMDF, PT, BMP3M, PHOS3, MG3, CK3 #### [address] #### VD25H #### [facility] [address] [place] [address] Std Base Excess 4.5 mmol/L High -3.0-3.0 [facility] Comment on above: Performed By: #### H EMDF, PT, BMP3M, PHOS3, MG3, CK3 #### [address] #### VD25H #### [facility] [address] [place] [address] FIO2 60% Normal [facility] Comment on above: Performed By: #### H EMDF, PT, BMP3M, PHOS3, MG3, CK3 #### [address] #### VD25H #### [facility] [address] [place] [address] Basic Metabolic Panelon 03-1 Anion gap molar conc 6 Normal [facility] Comment on above: Performed By: #### H EMDF, PT, BMP3M, PHOS3, MG3, CK3 #### [place] [address] [address] [facility], [place] #### VD25H #### [facility] [address] [place] [address] Calcium mass conc 8.0 mg/dL Low 8.4-10.4 [facility] Comment on above: Performed By: #### H EMDF, PT, BMP3M, PHOS3, MG3, CK3 #### [place] [address] [address] [facility], [place] #### VD25H #### [facility] [address] [place] [address] CO2 molar conc 31 mmol/L High 22-30 [facility] Comment on above: Performed By: #### H EMDF, PT, BMP3M, PHOS3, MG3, CK3 #### [place] [address] [facility] [place] #### VD25H #### [facility] [address] [place] [address] Glucose mass conc 107 mg/dL High 70-100 [facility] Comment on above: Performed By: #### H EMDF, PT, BMP3M, PHOS3, MG3, CK3 #### [address], [place] #### VD25H #### [facility] [address] [place] [address] Urea nitrogen mass conc 22 mg/dL High 7-20 [facility] Comment on above: Performed By: #### H EMDF, PT, BMP3M, PHOS3, MG3, CK3 #### [place] [address] [address] [facility], [place] #### VD25H #### [facility] [address] [place] [address] Creatinine mass conc 0.66 mg/dL Normal 0.52-1.25 [facility] Comment on above: Performed By: #### H EMDF, PT, BMP3M, PHOS3, MG3, CK3 #### [facility] [address] [place] [address] #### VD25H #### [facility] [address] [place] [address] GFR/1.73 sq M predicted among blacks MDRD vol rate/area (S/P/Bld) mL/min/{1.73_m2} Normal >60 [facility] Comment on above: Performed By: #### H EMDF, PT, BMP3M, PHOS3, MG3, CK3 #### [address] #### VD25H #### [facility] [address] [place] [address] GFR/1.73 sq M predicted among non-blacks MDRD vol rate/area (S/P/Bld) mL/min/{1.73_m2} Normal >60 [facility] Comment on above: Result Comment: Sour ce- MDRD equation with creatinine calibration to IDMS(NKDEP) eGFR not recommended for drug dose adjustment Performed By: #### H EMDF, PT, BMP3M, PHOS3, MG3, CK3 #### [address] #### VD25H #### [facility] [address] [facility] [place] [address] Chloride molar conc 105 mmol/L Normal 98-107 [facility] Comment on above: Performed By: #### H EMDF, PT, BMP3M, PHOS3, MG3, CK3 #### [address] #### VD25H #### [facility] [address] [facility] [place] [address] Potassium molar conc 3.9 mmol/L Normal 3.5-5.1 [facility] Comment on above: Performed By: #### H EMDF, PT, BMP3M, PHOS3, MG3, CK3 #### [address] #### VD25H #### [facility] [address] [place] [address] Sodium molar conc 142 mmol/L Normal 135-145 [facility] Comment on above: Performed By: #### H EMDF, PT, BMP3M, PHOS3, MG3, CK3 #### [facility] [address] [facility] [place] [place] [address] #### VD25H #### [facility] [address] [place] [address] CR Abdomen APon 07-17-2018 CR Abdomen AP Patient Name: KATHYA HOOPER Diagnostic Radiology Exam Date/Time 07/17/2018 12:46:31 EDT Exam CR Abdomen AP Ordering Physician Moses JOYA PERRY Accession Number [id number] CPT4 Codes 25683 () Reason For Exam ileus Report Abdomen: [...] Transcribed Date and Time: 07/17/2018 12:46 Normal [facility] CR Abdomen AP Patient Name: KATHYA HOOPER Diagnostic Radiology Exam Date/Time 07/17/2018 06:25:43 EDT Exam CR Abdomen AP Ordering Physician JOYA ROJAS Accession Number [id number] CPT4 Codes 99336 () Reason For Exam ileus Report Abdomen: [...] Transcribed Date and Time: 07/17/2018 7:16 Normal [facility] CR Chest Portableon 07-18-19 CR Chest Portable Patient Name: KATHYA HOOPER Diagnostic Radiology Exam Date/Time 07/17/2018 18:08:41 EDT Exam CR Chest Portable Ordering Physician SALO DAVIS Accession Number [id number] CPT4 Codes 23225 () Reason For Exam picc Report CHEST [...] Transcribed Date and Time: 07/17/2018 7:24 Normal [facility] CR Chest Portable Patient Name: KATHYA HOOPER Diagnostic Radiology Exam Date/Time 07/17/2018 18:08:41 EDT Exam CR Chest Portable Ordering Physician BOB DAVISN Kirti Accession Number [id number] CPT4 Codes 36937 () Reason For Exam reheck line tip [...] Transcribed Date and Time: 07/17/2018 7:21 Normal [facility] CR Chest Portable Patient Name: KATHYA HOOPER Diagnostic Radiology Exam Date/Time 07/17/2018 06:26:06 EDT Exam CR Chest Portable Ordering Physician MARIA EUGENIA PEREZ Accession Number [id number] CPT4 Codes 73982 () Reason For Exam ETT placement Report [...] Transcribed Date and Time: 07/17/2018 7:17 Normal [facility] Hemogram w/ Autodiffon 07-17 Abs Baso Cnt 0.0 10*3/uL Normal 0.0-0.2 [facility] Comment on above: Performed By: #### H EMDF, PT, BMP3M, PHOS3, MG3, CK3 #### [address] #### VD25H #### [facility] [address] [place] [address] Abs Neutrophile Cnt 8.1 10*3/uL High 1.8-7.0 [facility] Comment on above: Performed By: #### H EMDF, PT, BMP3M, PHOS3, MG3, CK3 #### [address] #### VD25H #### [facility] [address] [place] [address] Basophils/100 WBC (Bld) 0.4 % Normal 0.0-2.0 [facility] Comment on above: Performed By: #### H EMDF, PT, BMP3M, PHOS3, MG3, CK3 #### [place] [address] [address] [place] #### VD25H #### [facility] [address] [place] [address] Eosinophils #/vol (Bld) 0.1 10*3/uL Normal 0.0-0.5 [facility] Comment on above: Performed By: #### H EMDF, PT, BMP3M, PHOS3, MG3, CK3 #### [address] #### VD25H #### [facility] [address] [place] [address] Eosinophils/100 WBC (Bld) 1.4 % Normal 1.0-6.0 [facility] Comment on above: Performed By: #### H EMDF, PT, BMP3M, PHOS3, MG3, CK3 #### [address] #### VD25H #### [facility] [address] [place] [address] Erythrocyte distribution width Ratio (RBC) 13.5 % Normal 11.5-14.5 [facility] Comment on above: Performed By: #### H EMDF, PT, BMP3M, PHOS3, MG3, CK3 #### [address] #### VD25H #### [facility] [address] [place] [address] Granulocytes/100 WBC (Bld) 78.6 % Normal 40.0-80.0 [facility] Comment on above: Performed By: #### H EMDF, PT, BMP3M, PHOS3, MG3, CK3 #### [address] #### VD25H #### [facility] [address] [place] [address] Hematocrit Volume Fraction (Bld) 31.3 % Low 40.0-52.0 [facility] Comment on above: Performed By: #### H EMDF, PT, BMP3M, PHOS3, MG3, CK3 #### [address] #### VD25H #### [facility] [address] [place] [address] Hemoglobin mass conc (Bld) 10.4 g/dL Low 13.0-18.0 [facility] Comment on above: Performed By: #### H EMDF, PT, BMP3M, PHOS3, MG3, CK3 #### [address] #### VD25H #### [facility] [address] [place] [address] Lymphocytes #/vol (Bld) 1.0 10*3/uL Normal 1.0-4.3 [facility] Comment on above: Performed By: #### H EMDF, PT, BMP3M, PHOS3, MG3, CK3 #### [address] #### VD25H #### [facility] [address] [place] [address] Lymphocytes/100 WBC (Bld) 10.0 % Low 20.0-40.0 [facility] Comment on above: Performed By: #### H EMDF, PT, BMP3M, PHOS3, MG3, CK3 #### [address] #### VD25H #### [place] [address] [place] [address] MCH Entitic mass (RBC) 29.3 pg Normal 26.0-34.0 [facility] Comment on above: Performed By: #### H EMDF, PT, BMP3M, PHOS3, MG3, CK3 #### [address] #### VD25H #### [place] [address] [place] [address] MCHC mass conc (RBC) 33.3 % Normal 32.0-36.0 [facility] Comment on above: Performed By: #### H EMDF, PT, BMP3M, PHOS3, MG3, CK3 #### [address] #### VD25H #### [facility] [address] [place] [address] MCV Entitic volume (RBC) 87.9 fL Normal 80.0-98.0 [facility] Comment on above: Performed By: #### H EMDF, PT, BMP3M, PHOS3, MG3, CK3 #### [address] #### VD25H #### [facility] [address] [place] [address] Monocytes #/vol (Bld) 1.0 10*3/uL High 0.0-0.8 [facility] Comment on above: Performed By: #### H EMDF, PT, BMP3M, PHOS3, MG3, CK3 #### [place] [address] [address] [place] #### VD25H #### [facility] [address] [place] [address] Monocytes/100 WBC (Bld) 9.6 % Normal 2.0-10.0 [facility] Comment on above: Performed By: #### H EMDF, PT, BMP3M, PHOS3, MG3, CK3 #### [address] #### VD25H #### [facility] [address] [place] [address] Platelet mean volume Entitic volume (Bld) 7.6 fL Normal 7.4-10.4 [facility] Comment on above: Performed By: #### H EMDF, PT, BMP3M, PHOS3, MG3, CK3 #### [address] #### VD25H #### [facility] [address] [place] [address] Platelets #/vol (Bld) 307 10*3/uL Normal 140-440 [facility] Comment on above: Performed By: #### H EMDF, PT, BMP3M, PHOS3, MG3, CK3 #### [address] #### VD25H #### [facility] [address] [place] [address] RBC #/vol (Bld) 3.56 10*6/uL Low 4.40-5.90 [facility] Comment on above: Performed By: #### H EMDF, PT, BMP3M, PHOS3, MG3, CK3 #### [address] [place], [place] #### VD25H #### [facility] [address] [place] [address] WBC #/vol (Bld) 10.2 10*3/uL Normal 3.6-10.7 [facility] Comment on above: Performed By: #### H EMDF, PT, BMP3M, PHOS3, MG3, CK3 #### [place] [address] [address] [place] #### VD25H #### [facility] [address] [place] [address] Basic Metabolic Panelon 06-29 Calcium mass conc 8.1 mg/dL Low 8.4-10.4 [facility] Comment on above: Performed By: #### H EMDF, PT, BMP3M, PHOS3, MG3, CK3 #### [address] #### VD25H #### [facility] [address] [place] [address] Anion gap molar conc 5 Normal [facility] Comment on above: Performed By: #### H EMDF, PT, BMP3M, PHOS3, MG3, CK3 #### [address] #### VD25H #### [facility] [address] [place] [address] CO2 molar conc 32 mmol/L High 22-30 [facility] Comment on above: Performed By: #### H EMDF, PT, BMP3M, PHOS3, MG3, CK3 #### [address] #### VD25H #### [facility] [address] [place] [address] Creatinine mass conc 0.62 mg/dL Normal 0.52-1.25 [facility] Comment on above: Performed By: #### H EMDF, PT, BMP3M, PHOS3, MG3, CK3 #### [facility] [address] [place] [address] #### VD25H #### [facility] [address] [place] [address] GFR/1.73 sq M predicted among blacks MDRD vol rate/area (S/P/Bld) mL/min/{1.73_m2} Normal >60 [facility] Comment on above: Performed By: #### H EMDF, PT, BMP3M, PHOS3, MG3, CK3 #### [place] [address] [place] [address] #### VD25H #### [facility] [address] [place] [address] GFR/1.73 sq M predicted among non-blacks MDRD vol rate/area (S/P/Bld) mL/min/{1.73_m2} Normal >60 [facility] Comment on above: Result Comment: Sour ce- MDRD equation with creatinine calibration to IDMS(NKDEP) eGFR not recommended for drug dose adjustment Performed By: #### H EMDF, PT, BMP3M, PHOS3, MG3, CK3 #### [place] [address] [place], [place] #### VD25H #### [facility] [address] [place] [address] Glucose mass conc 103 mg/dL High 70-100 [facility] Comment on above: Performed By: #### H EMDF, PT, BMP3M, PHOS3, MG3, CK3 #### [place] [address] [address] [facility], [place] #### VD25H #### [facility] [address] [facility] [place] [address] Urea nitrogen mass conc 20 mg/dL Normal 7-20 [facility] Comment on above: Performed By: #### H EMDF, PT, BMP3M, PHOS3, MG3, CK3 #### [place] [address] [place], [place] #### VD25H #### [facility] [address] [place] [address] Chloride molar conc 107 mmol/L Normal 98-107 [facility] Comment on above: Performed By: #### H EMDF, PT, BMP3M, PHOS3, MG3, CK3 #### [facility] [address] [place] [address] #### VD25H #### [facility] [address] [place] [address] Potassium molar conc 3.7 mmol/L Normal 3.5-5.1 [facility] Comment on above: Performed By: #### H EMDF, PT, BMP3M, PHOS3, MG3, CK3 #### [address] [address] #### VD25H #### [facility] [address] [place] [address] Sodium molar conc 145 mmol/L Normal 135-145 [facility] Comment on above: Performed By: #### H EMDF, PT, BMP3M, PHOS3, MG3, CK3 #### [place] [address] [place] [address] #### VD25H #### [facility] [address] [place] [address] CR Abdomen APon 07-16-2018 CR Abdomen AP Patient Name: KATHYA HOOPER Diagnostic Radiology Exam Date/Time 07/16/2018 08:00:58 EDT Exam CR Abdomen AP Ordering Physician [id number] JOYA PERRY Accession Number [id number] CPT4 Codes 62858 () Reason For Exam ileus Report KUB [...] Transcribed Date and Time: 07/16/2018 10:03 Normal [facility] CR Chest Portableon 07-17-19 19 CR Chest Portable Patient Name: KATHYA HOOPER Diagnostic Radiology Exam Date/Time 07/16/2018 06:19:28 EDT Exam CR Chest Portable Ordering Physician MARIA EUGENIA PEREZ Accession Number [id number] CPT4 Codes 59788 () Reason For Exam ETT placement Report [...] Transcribed Date and Time: 07/16/2018 10:10 Normal [facility] Hemogram w/ Autodiffon 07-16 Abs Baso Cnt 0.0 10*3/uL Normal 0.0-0.2 [facility] Comment on above: Performed By: #### H EMDF, PT, BMP3M, PHOS3, MG3, CK3 #### [address] [place] #### VD25H #### [facility] [address] [place] [address] Abs Neutrophile Cnt 8.7 10*3/uL High 1.8-7.0 [facility] Comment on above: Performed By: #### H EMDF, PT, BMP3M, PHOS3, MG3, CK3 #### [address] #### VD25H #### [facility] [address] [place] [address] Basophils/100 WBC (Bld) 0.2 % Normal 0.0-2.0 [facility] Comment on above: Performed By: #### H EMDF, PT, BMP3M, PHOS3, MG3, CK3 #### [address] #### VD25H #### [facility] [address] [place] [address] Eosinophils #/vol (Bld) 0.1 10*3/uL Normal 0.0-0.5 [facility] Comment on above: Performed By: #### H EMDF, PT, BMP3M, PHOS3, MG3, CK3 #### [address] #### VD25H #### [facility] [address] [place] [address] Eosinophils/100 WBC (Bld) 0.7 % Low 1.0-6.0 [facility] Comment on above: Performed By: #### H EMDF, PT, BMP3M, PHOS3, MG3, CK3 #### [address] #### VD25H #### [facility] [address] [place] [address] Erythrocyte distribution width Ratio (RBC) 13.7 % Normal 11.5-14.5 [facility] Comment on above: Performed By: #### H EMDF, PT, BMP3M, PHOS3, MG3, CK3 #### [facility] [address] [place] #### VD25H #### [facility] [address] [place] [address] Granulocytes/100 WBC (Bld) 83.0 % High 40.0-80.0 [facility] Comment on above: Performed By: #### H EMDF, PT, BMP3M, PHOS3, MG3, CK3 #### [place] [address] [place] #### VD25H #### [facility] [address] [place] [address] Hematocrit Volume Fraction (Bld) 30.3 % Low 40.0-52.0 [facility] Comment on above: Performed By: #### H EMDF, PT, BMP3M, PHOS3, MG3, CK3 #### [place] [address] [place], [place] #### VD25H #### [facility] [address] [place] [address] Hemoglobin mass conc (Bld) 10.5 g/dL Low 13.0-18.0 [facility] Comment on above: Performed By: #### H EMDF, PT, BMP3M, PHOS3, MG3, CK3 #### [address] #### VD25H #### [facility] [address] [place] [address] Lymphocytes #/vol (Bld) 0.7 10*3/uL Low 1.0-4.3 [facility] Comment on above: Performed By: #### H EMDF, PT, BMP3M, PHOS3, MG3, CK3 #### [address] #### VD25H #### [facility] [address] [place] [address] Lymphocytes/100 WBC (Bld) 6.7 % Low 20.0-40.0 [facility] Comment on above: Performed By: #### H EMDF, PT, BMP3M, PHOS3, MG3, CK3 #### [address] #### VD25H #### [facility] [address] [place] [address] MCH Entitic mass (RBC) 30.2 pg Normal 26.0-34.0 [facility] Comment on above: Performed By: #### H EMDF, PT, BMP3M, PHOS3, MG3, CK3 #### [address] [place], [place] #### VD25H #### [facility] [address] [place] [address] MCHC mass conc (RBC) 34.6 % Normal 32.0-36.0 [facility] Comment on above: Performed By: #### H EMDF, PT, BMP3M, PHOS3, MG3, CK3 #### [address] #### VD25H #### [facility] [address] [place] [address] MCV Entitic volume (RBC) 87.3 fL Normal 80.0-98.0 [facility] Comment on above: Performed By: #### H EMDF, PT, BMP3M, PHOS3, MG3, CK3 #### [address] #### VD25H #### [place] [address] [place] [address] Monocytes #/vol (Bld) 1.0 10*3/uL High 0.0-0.8 [facility] Comment on above: Performed By: #### H EMDF, PT, BMP3M, PHOS3, MG3, CK3 #### [address] #### VD25H #### [place] [address] [place] [address] Monocytes/100 WBC (Bld) 9.4 % Normal 2.0-10.0 [facility] Comment on above: Performed By: #### H EMDF, PT, BMP3M, PHOS3, MG3, CK3 #### [facility] [address] [place], [place] #### VD25H #### [facility] [address] [place] [address] Platelet mean volume Entitic volume (Bld) 6.9 fL Low 7.4-10.4 [facility] Comment on above: Performed By: #### H EMDF, PT, BMP3M, PHOS3, MG3, CK3 #### [place] [address] [place], [place] #### VD25H #### [facility] [address] [place] [address] Platelets #/vol (Bld) 254 10*3/uL Normal 140-440 [facility] Comment on above: Performed By: #### H EMDF, PT, BMP3M, PHOS3, MG3, CK3 #### [place] [address] [place] #### VD25H #### [facility] [address] [place] [address] RBC #/vol (Bld) 3.47 10*6/uL Low 4.40-5.90 [facility] Comment on above: Performed By: #### H EMDF, PT, BMP3M, PHOS3, MG3, CK3 #### [place] [address] [place] #### VD25H #### [facility] [address] [place] [address] WBC #/vol (Bld) 10.5 10*3/uL Normal 3.6-10.7 [facility] Comment on above: Performed By: #### H EMDF, PT, BMP3M, PHOS3, MG3, CK3 #### [address] #### VD25H #### [facility] [address] [place] [address] Arterial Blood Gaseson 07-15 CO2 molar conc 26.7 mmol/L Normal 23.0-27.0 [facility] Comment on above: Performed By: #### H EMDF, PT, BMP3M, PHOS3, MG3, CK3 #### [place] [address] [place], [place] #### VD25H #### [facility] [address] [place] [address] FIO2 50% Normal [facility] Comment on above: Performed By: #### H EMDF, PT, BMP3M, PHOS3, MG3, CK3 #### [address] #### VD25H #### [facility] [address] [place] [address] HCO3 molar conc (Bld) 25.7 mmol/L High 21.0-25.0 [facility] Comment on above: Performed By: #### H EMDF, PT, BMP3M, PHOS3, MG3, CK3 #### [address] #### VD25H #### [facility] [address] [place] [address] Hemoglobin mass conc (Bld) 12.5 g/dL Normal ScreenOnly [facility] Comment on above: Performed By: #### H EMDF, PT, BMP3M, PHOS3, MG3, CK3 #### [place] [address] [place], [place] #### VD25H #### [facility] [address] [place] [address] Oxygen ppres (Bld) 90.4 mm[Hg] Normal 80.0-100.0 [facility] Comment on above: Performed By: #### H EMDF, PT, BMP3M, PHOS3, MG3, CK3 #### [address] #### VD25H #### [facility] [address] [place] [address] Oxygen saturation in Blood 96.8 % Normal 95.0-100.0 [facility] Comment on above: Performed By: #### H EMDF, PT, BMP3M, PHOS3, MG3, CK3 #### [facility] [address] [place], [place] #### VD25H #### [facility] [address] [place] [address] pCO2 33.4 mm[Hg] Low 35.0-45.0 [facility] Comment on above: Performed By: #### H EMDF, PT, BMP3M, PHOS3, MG3, CK3 #### [place] [address] [place], [place] #### VD25H #### [facility] [address] [place] [address] pH (Bld) 7.504 High 7.350-7.450 [facility] Comment on above: Performed By: #### H EMDF, PT, BMP3M, PHOS3, MG3, CK3 #### [address] #### VD25H #### [facility] [address] [place] [address] Std Base Excess 2.9 mmol/L Normal -3.0-3.0 [facility] Comment on above: Performed By: #### H EMDF, PT, BMP3M, PHOS3, MG3, CK3 #### [address] [place], [place] #### VD25H #### [facility] [address] [place] [address] Basic Metabolic Panelon 06-29 Anion gap molar conc 8 Normal [facility] Comment on above: Performed By: #### H EMDF, PT, BMP3M, PHOS3, MG3, CK3 #### [address] [address] [place], [place] #### VD25H #### [facility] [address] [place] [address] Calcium mass conc 8.6 mg/dL Normal 8.4-10.4 [facility] Comment on above: Performed By: #### H EMDF, PT, BMP3M, PHOS3, MG3, CK3 #### [facility] [address] [place], [place] #### VD25H #### [facility] [address] [place] [address] CO2 molar conc 29 mmol/L Normal 22-30 [facility] Comment on above: Performed By: #### H EMDF, PT, BMP3M, PHOS3, MG3, CK3 #### [address] #### VD25H #### [facility] [address] [facility] [place] [address] Glucose mass conc 119 mg/dL High 70-100 [facility] Comment on above: Performed By: #### H EMDF, PT, BMP3M, PHOS3, MG3, CK3 #### [address] #### VD25H #### [facility] [address] [place] [address] Urea nitrogen mass conc 23 mg/dL High 7-20 [facility] Comment on above: Performed By: #### H EMDF, PT, BMP3M, PHOS3, MG3, CK3 #### [address] #### VD25H #### [facility] [address] [place] [address] Creatinine mass conc 0.73 mg/dL Normal 0.52-1.25 [facility] Comment on above: Performed By: #### H EMDF, PT, BMP3M, PHOS3, MG3, CK3 #### [address] #### VD25H #### [facility] [address] [place] [address] GFR/1.73 sq M predicted among blacks MDRD vol rate/area (S/P/Bld) mL/min/{1.73_m2} Normal >60 [facility] Comment on above: Performed By: #### H EMDF, PT, BMP3M, PHOS3, MG3, CK3 #### [facility] [address] [place] [address] #### VD25H #### [facility] [address] [place] [address] GFR/1.73 sq M predicted among non-blacks MDRD vol rate/area (S/P/Bld) mL/min/{1.73_m2} Normal >60 [facility] Comment on above: Result Comment: Sour ce- MDRD equation with creatinine calibration to IDMS(NKDEP) eGFR not recommended for drug dose adjustment Performed By: #### H EMDF, PT, BMP3M, PHOS3, MG3, CK3 #### [address] #### VD25H #### [facility] [address] [place] [address] Potassium molar conc 4.1 mmol/L Normal 3.5-5.1 [facility] Comment on above: Performed By: #### H EMDF, PT, BMP3M, PHOS3, MG3, CK3 #### [address] #### VD25H #### [facility] [address] [place] [address] Sodium molar conc 144 mmol/L Normal 135-145 [facility] Comment on above: Performed By: #### H EMDF, PT, BMP3M, PHOS3, MG3, CK3 #### [address] [address] #### VD25H #### [facility] [address] [place] [address] Chloride molar conc 107 mmol/L Normal 98-107 [facility] Comment on above: Performed By: #### H EMDF, PT, BMP3M, PHOS3, MG3, CK3 #### [facility] [address] [place] [address] #### VD25H #### [facility] [address] [place] [address] CR Abdomen APon 07-15-2018 CR Abdomen AP Patient Name: KATHYA HOOPER Diagnostic Radiology Exam Date/Time 07/15/2018 09:25:44 EDT Exam CR Abdomen AP Ordering Physician [id number] AGUILERA Accession Number [id number] CPT4 Codes 43453 () Reason For Exam ileus Report EXAMINATION: [...] Transcribed Date and Time: 07/15/2018 10:07 Normal [facility] CR Chest Portableon 07-16-19 19 CR Chest Portable Patient Name: KATHYA HOOPER Diagnostic Radiology Exam Date/Time 07/15/2018 06:00:00 EDT Exam CR Chest Portable Ordering Physician MARIA EUGENIA PEREZ Accession Number [id number] CPT4 Codes 55426 () Reason For Exam ETT placement Report [...] Transcribed Date and Time: 07/15/2018 9:14 Normal [facility] CULT./ST. RESPIRATORYon 06-29 CULT./ST. RESPIRATORY CULT./ST. RESPIRAT [...] in clusters. Rare gram negative bacilli. Normal [facility] Comment on above: Order Comment: Speci men Source Comment:Sputum, Suctioned Performed By: #### H EMDF, PT, BMP3M, PHOS3, MG3, CK3 #### [facility] [address] [place], [place] #### VD25H #### [facility] [address] [place] [address] Hemogram w/ Autodiffon 07-15 Abs Baso Cnt 0.0 10*3/uL Normal 0.0-0.2 [facility] Comment on above: Performed By: #### H EMDF, PT, BMP3M, PHOS3, MG3, CK3 #### [facility] [address] [place] [address] #### VD25H #### [facility] [address] [place] [address] Abs Neutrophile Cnt 13.2 10*3/uL High 1.8-7.0 [facility] Comment on above: Performed By: #### H EMDF, PT, BMP3M, PHOS3, MG3, CK3 #### [facility] [address] [place], [place] #### VD25H #### [facility] [address] [place] [address] Basophils/100 WBC (Bld) 0.2 % Normal 0.0-2.0 [facility] Comment on above: Performed By: #### H EMDF, PT, BMP3M, PHOS3, MG3, CK3 #### [facility] [address] [place], [place] #### VD25H #### [facility] [address] [place] [address] Eosinophils #/vol (Bld) 0.0 10*3/uL Normal 0.0-0.5 [facility] Comment on above: Performed By: #### H EMDF, PT, BMP3M, PHOS3, MG3, CK3 #### [address] #### VD25H #### [facility] [address] [place] [address] Eosinophils/100 WBC (Bld) 0.1 % Low 1.0-6.0 [facility] Comment on above: Performed By: #### H EMDF, PT, BMP3M, PHOS3, MG3, CK3 #### [address] #### VD25H #### [facility] [address] [place] [address] Erythrocyte distribution width Ratio (RBC) 13.9 % Normal 11.5-14.5 [facility] Comment on above: Performed By: #### H EMDF, PT, BMP3M, PHOS3, MG3, CK3 #### [address] #### VD25H #### [facility] [address] [place] [address] Granulocytes/100 WBC (Bld) 88.1 % High 40.0-80.0 [facility] Comment on above: Performed By: #### H EMDF, PT, BMP3M, PHOS3, MG3, CK3 #### [address] [place], [place] #### VD25H #### [facility] [address] [place] [address] Hematocrit Volume Fraction (Bld) 35.3 % Low 40.0-52.0 [facility] Comment on above: Performed By: #### H EMDF, PT, BMP3M, PHOS3, MG3, CK3 #### [address] #### VD25H #### [facility] [address] [place] [address] Hemoglobin mass conc (Bld) 11.9 g/dL Low 13.0-18.0 [facility] Comment on above: Performed By: #### H EMDF, PT, BMP3M, PHOS3, MG3, CK3 #### [address] #### VD25H #### [facility] [address] [place] [address] Lymphocytes #/vol (Bld) 0.8 10*3/uL Low 1.0-4.3 [facility] Comment on above: Performed By: #### H EMDF, PT, BMP3M, PHOS3, MG3, CK3 #### [address] #### VD25H #### [facility] [address] [place] [address] Lymphocytes/100 WBC (Bld) 5.0 % Low 20.0-40.0 [facility] Comment on above: Performed By: #### H EMDF, PT, BMP3M, PHOS3, MG3, CK3 #### [address] #### VD25H #### [facility] [address] [place] [address] MCH Entitic mass (RBC) 29.5 pg Normal 26.0-34.0 [facility] Comment on above: Performed By: #### H EMDF, PT, BMP3M, PHOS3, MG3, CK3 #### [facility] [address] [place], [place] #### VD25H #### [facility] [address] [place] [address] MCHC mass conc (RBC) 33.8 % Normal 32.0-36.0 [facility] Comment on above: Performed By: #### H EMDF, PT, BMP3M, PHOS3, MG3, CK3 #### [address] #### VD25H #### [facility] [address] [place] [address] MCV Entitic volume (RBC) 87.2 fL Normal 80.0-98.0 [facility] Comment on above: Performed By: #### H EMDF, PT, BMP3M, PHOS3, MG3, CK3 #### [address] #### VD25H #### [facility] [address] [place] [address] Monocytes #/vol (Bld) 1.0 10*3/uL High 0.0-0.8 [facility] Comment on above: Performed By: #### H EMDF, PT, BMP3M, PHOS3, MG3, CK3 #### [address] #### VD25H #### [facility] [address] [place] [address] Monocytes/100 WBC (Bld) 6.6 % Normal 2.0-10.0 [facility] Comment on above: Performed By: #### H EMDF, PT, BMP3M, PHOS3, MG3, CK3 #### [address] #### VD25H #### [facility] [address] [place] [address] Platelet mean volume Entitic volume (Bld) 7.9 fL Normal 7.4-10.4 [facility] Comment on above: Performed By: #### H EMDF, PT, BMP3M, PHOS3, MG3, CK3 #### [facility] [address] [place], [place] #### VD25H #### [facility] [address] [place] [address] Platelets #/vol (Bld) 319 10*3/uL Normal 140-440 [facility] Comment on above: Performed By: #### H EMDF, PT, BMP3M, PHOS3, MG3, CK3 #### [address] #### VD25H #### [facility] [address] [place] [address] RBC #/vol (Bld) 4.05 10*6/uL Low 4.40-5.90 [facility] Comment on above: Performed By: #### H EMDF, PT, BMP3M, PHOS3, MG3, CK3 #### [address] #### VD25H #### [facility] [address] [place] [address] WBC #/vol (Bld) 15.0 10*3/uL High 3.6-10.7 [facility] Comment on above: Performed By: #### H EMDF, PT, BMP3M, PHOS3, MG3, CK3 #### [address] [place], [place] #### VD25H #### [facility] [address] [place] [address] Basic Metabolic Panelon - Anion gap molar conc 9 Normal [facility] Comment on above: Performed By: #### H EMDF, PT, BMP3M, PHOS3, MG3, CK3 #### [address] #### VD25H #### [facility] [address] [place] [address] Calcium mass conc 7.6 mg/dL Low 8.4-10.4 [facility] Comment on above: Performed By: #### H EMDF, PT, BMP3M, PHOS3, MG3, CK3 #### [place] [address] [address] [facility], [place] #### VD25H #### [facility] [address] [place] [address] CO2 molar conc 26 mmol/L Normal 22-30 [facility] Comment on above: Performed By: #### H EMDF, PT, BMP3M, PHOS3, MG3, CK3 #### [address] [facility], [place] #### VD25H #### [place] [address] [place] [address] Glucose mass conc 148 mg/dL High 70-100 [facility] Comment on above: Performed By: #### H EMDF, PT, BMP3M, PHOS3, MG3, CK3 #### [place] [address] [facility] [place] #### VD25H #### [facility] [address] [place] [address] Urea nitrogen mass conc 16 mg/dL Normal 7-20 [facility] Comment on above: Performed By: #### H EMDF, PT, BMP3M, PHOS3, MG3, CK3 #### [place] [address] [facility], [place] #### VD25H #### [facility] [address] [place] [address] Creatinine mass conc 0.62 mg/dL Normal 0.52-1.25 [facility] Comment on above: Performed By: #### H EMDF, PT, BMP3M, PHOS3, MG3, CK3 #### [address] [facility], [place] #### VD25H #### [facility] [address] [place] [address] GFR/1.73 sq M predicted among blacks MDRD vol rate/area (S/P/Bld) mL/min/{1.73_m2} Normal >60 [facility] Comment on above: Performed By: #### H EMDF, PT, BMP3M, PHOS3, MG3, CK3 #### [address] #### VD25H #### [facility] [address] [place] [address] GFR/1.73 sq M predicted among non-blacks MDRD vol rate/area (S/P/Bld) mL/min/{1.73_m2} Normal >60 [facility] Comment on above: Result Comment: Sour ce- MDRD equation with creatinine calibration to IDMS(NKDEP) eGFR not recommended for drug dose adjustment Performed By: #### H EMDF, PT, BMP3M, PHOS3, MG3, CK3 #### [address] #### VD25H #### [facility] [address] [place] [address] Potassium molar conc 4.5 mmol/L Normal 3.5-5.1 [facility] Comment on above: Performed By: #### H EMDF, PT, BMP3M, PHOS3, MG3, CK3 #### [address] #### VD25H #### [facility] [address] [place] [address] Sodium molar conc 137 mmol/L Normal 135-145 [facility] Comment on above: Performed By: #### H EMDF, PT, BMP3M, PHOS3, MG3, CK3 #### [address] #### VD25H #### [facility] [address] [place] [address] Chloride molar conc 103 mmol/L Normal 98-107 [facility] Comment on above: Performed By: #### H EMDF, PT, BMP3M, PHOS3, MG3, CK3 #### [facility] [address] [facility] [place] [address] #### VD25H #### [facility] [address] [place] [address] CR Abdomen APon 07-14-2018 CR Abdomen AP Patient Name: KATHYA HOOPER Diagnostic Radiology Exam Date/Time 07/14/2018 19:15:43 EDT Exam CR Abdomen AP Ordering Physician [id number] AGUILERA Accession Number [id number] CPT4 Codes 62176 () Reason For Exam Distended with emesis [...] Transcribed Date and Time: 07/14/2018 7:28 Normal [facility] CR Chest Portableon 07-15-19 19 CR Chest Portable Patient Name: KATHYA HOOPER Diagnostic Radiology Exam Date/Time 07/14/2018 06:53:29 EDT Exam CR Chest Portable Ordering Physician MARIA EUGENIA PEREZ Accession Number [id number] CPT4 Codes 59225 () Reason For Exam ETT placement Report [...] Transcribed Date and Time: 07/14/2018 11:51 Normal [facility] Hemogram w/ Autodiffon 07-14 Abs Baso Cnt 0.0 10*3/uL Normal 0.0-0.2 [facility] Comment on above: Performed By: #### H EMDF, PT, BMP3M, PHOS3, MG3, CK3 #### [address] #### VD25H #### [facility] [address] [place] [address] Abs Neutrophile Cnt 11.7 10*3/uL High 1.8-7.0 [facility] Comment on above: Performed By: #### H EMDF, PT, BMP3M, PHOS3, MG3, CK3 #### [facility] [address] [place], [place] #### VD25H #### [facility] [address] [place] [address] Basophils/100 WBC (Bld) 0.3 % Normal 0.0-2.0 [facility] Comment on above: Performed By: #### H EMDF, PT, BMP3M, PHOS3, MG3, CK3 #### [facility] [address] [place], [place] #### VD25H #### [facility] [address] [place] [address] Eosinophils #/vol (Bld) 0.0 10*3/uL Normal 0.0-0.5 [facility] Comment on above: Performed By: #### H EMDF, PT, BMP3M, PHOS3, MG3, CK3 #### [address] #### VD25H #### [facility] [address] [place] [address] Eosinophils/100 WBC (Bld) 0.1 % Low 1.0-6.0 [facility] Comment on above: Performed By: #### H EMDF, PT, BMP3M, PHOS3, MG3, CK3 #### [address] #### VD25H #### [facility] [address] [place] [address] Erythrocyte distribution width Ratio (RBC) 13.8 % Normal 11.5-14.5 [facility] Comment on above: Performed By: #### H EMDF, PT, BMP3M, PHOS3, MG3, CK3 #### [address] #### VD25H #### [facility] [address] [place] [address] Granulocytes/100 WBC (Bld) 89.1 % High 40.0-80.0 [facility] Comment on above: Performed By: #### H EMDF, PT, BMP3M, PHOS3, MG3, CK3 #### [address] #### VD25H #### [facility] [address] [place] [address] Hematocrit Volume Fraction (Bld) 33.8 % Low 40.0-52.0 [facility] Comment on above: Performed By: #### H EMDF, PT, BMP3M, PHOS3, MG3, CK3 #### [address] #### VD25H #### [facility] [address] [place] [address] Hemoglobin mass conc (Bld) 11.5 g/dL Low 13.0-18.0 [facility] Comment on above: Performed By: #### H EMDF, PT, BMP3M, PHOS3, MG3, CK3 #### [address] [place], [place] #### VD25H #### [facility] [address] [place] [address] Lymphocytes #/vol (Bld) 0.6 10*3/uL Low 1.0-4.3 [facility] Comment on above: Performed By: #### H EMDF, PT, BMP3M, PHOS3, MG3, CK3 #### [address] #### VD25H #### [facility] [address] [place] [address] Lymphocytes/100 WBC (Bld) 4.5 % Low 20.0-40.0 [facility] Comment on above: Performed By: #### H EMDF, PT, BMP3M, PHOS3, MG3, CK3 #### [address] #### VD25H #### [facility] [address] [place] [address] MCH Entitic mass (RBC) 29.6 pg Normal 26.0-34.0 [facility] Comment on above: Performed By: #### H EMDF, PT, BMP3M, PHOS3, MG3, CK3 #### [address] #### VD25H #### [facility] [address] [place] [address] MCHC mass conc (RBC) 33.9 % Normal 32.0-36.0 [facility] Comment on above: Performed By: #### H EMDF, PT, BMP3M, PHOS3, MG3, CK3 #### [address] #### VD25H #### [facility] [address] [place] [address] MCV Entitic volume (RBC) 87.3 fL Normal 80.0-98.0 [facility] Comment on above: Performed By: #### H EMDF, PT, BMP3M, PHOS3, MG3, CK3 #### [facility] [address] [place], [place] #### VD25H #### [facility] [address] [place] [address] Monocytes #/vol (Bld) 0.8 10*3/uL Normal 0.0-0.8 [facility] Comment on above: Performed By: #### H EMDF, PT, BMP3M, PHOS3, MG3, CK3 #### [address] #### VD25H #### [facility] [address] [place] [address] Monocytes/100 WBC (Bld) 6.0 % Normal 2.0-10.0 [facility] Comment on above: Performed By: #### H EMDF, PT, BMP3M, PHOS3, MG3, CK3 #### [address] #### VD25H #### [facility] [address] [place] [address] Platelet mean volume Entitic volume (Bld) 8.1 fL Normal 7.4-10.4 [facility] Comment on above: Performed By: #### H EMDF, PT, BMP3M, PHOS3, MG3, CK3 #### [address] [place], [place] #### VD25H #### [facility] [address] [place] [address] Platelets #/vol (Bld) 196 10*3/uL Normal 140-440 [facility] Comment on above: Performed By: #### H EMDF, PT, BMP3M, PHOS3, MG3, CK3 #### [address] [place], [place] #### VD25H #### [facility] [address] [place] [address] RBC #/vol (Bld) 3.87 10*6/uL Low 4.40-5.90 [facility] Comment on above: Performed By: #### H EMDF, PT, BMP3M, PHOS3, MG3, CK3 #### [address] #### VD25H #### [facility] [address] [place] [address] WBC #/vol (Bld) 13.2 10*3/uL High 3.6-10.7 [facility] Comment on above: Performed By: #### H EMDF, PT, BMP3M, PHOS3, MG3, CK3 #### [address] #### VD25H #### [place] [address] [place] [address] Add on test from HISon 07-13 Add on test from HIS Rejected Normal [facility] Comment on above: Result Comment: No s pecimen available for addon. Performed By: #### H EMDF, PT, BMP3M, PHOS3, MG3, CK3 #### [address] #### VD25H #### [place] [address] [place] [address] Arterial Blood Gaseson 07-13 CO2 molar conc 25.6 mmol/L Normal 23.0-27.0 [facility] Comment on above: Performed By: #### H EMDF, PT, BMP3M, PHOS3, MG3, CK3 #### [address] #### VD25H #### [facility] [address] [place] [address] HCO3 molar conc (Bld) 24.5 mmol/L Normal 21.0-25.0 [facility] Comment on above: Performed By: #### H EMDF, PT, BMP3M, PHOS3, MG3, CK3 #### [facility] [address] [place], [place] #### VD25H #### [facility] [address] [place] [address] Hemoglobin mass conc (Bld) 9.7 g/dL Normal ScreenOnly [facility] Comment on above: Performed By: #### H EMDF, PT, BMP3M, PHOS3, MG3, CK3 #### [place] [address] [facility], [place] #### VD25H #### [facility] [address] [place] [address] Oxygen ppres (Bld) 99.9 mm[Hg] Normal 80.0-100.0 [facility] Comment on above: Performed By: #### H EMDF, PT, BMP3M, PHOS3, MG3, CK3 #### [place] [address] [place] #### VD25H #### [facility] [address] [place] [address] Oxygen saturation in Blood 97.5 % Normal 95.0-100.0 [facility] Comment on above: Performed By: #### H EMDF, PT, BMP3M, PHOS3, MG3, CK3 #### [place] [address] [place] #### VD25H #### [facility] [address] [place] [address] pCO2 36.0 mm[Hg] Normal 35.0-45.0 [facility] Comment on above: Performed By: #### H EMDF, PT, BMP3M, PHOS3, MG3, CK3 #### [place] [address] [place] #### VD25H #### [facility] [address] [place] [address] pH (Bld) 7.450 Normal 7.350-7.450 [facility] Comment on above: Performed By: #### H EMDF, PT, BMP3M, PHOS3, MG3, CK3 #### [address] [place], [place] #### VD25H #### [facility] [address] [place] [address] Std Base Excess 0.6 mmol/L Normal -3.0-3.0 [facility] Comment on above: Performed By: #### H EMDF, PT, BMP3M, PHOS3, MG3, CK3 #### [place] [address] [place] #### VD25H #### [facility] [address] [place] [address] FIO2 .50 Normal [facility] Comment on above: Performed By: #### H EMDF, PT, BMP3M, PHOS3, MG3, CK3 #### [address] #### VD25H #### [place] [address] [place] [address] Basic Metabolic Panelon - Calcium mass conc 7.6 mg/dL Low 8.4-10.4 [facility] Comment on above: Performed By: #### H EMDF, PT, BMP3M, PHOS3, MG3, CK3 #### [address] #### VD25H #### [address] [place] [address] Glucose mass conc 120 mg/dL High 70-100 [facility] Comment on above: Performed By: #### H EMDF, PT, BMP3M, PHOS3, MG3, CK3 #### [address] #### VD25H #### [facility] [address] [place] [address] Anion gap molar conc 7 Normal [facility] Comment on above: Performed By: #### H EMDF, PT, BMP3M, PHOS3, MG3, CK3 #### [address] [place], [place] #### VD25H #### [facility] [address] [place] [address] CO2 molar conc 27 mmol/L Normal 22-30 [facility] Comment on above: Performed By: #### H EMDF, PT, BMP3M, PHOS3, MG3, CK3 #### [address] [place], [place] #### VD25H #### [facility] [address] [place] [address] Creatinine mass conc 0.62 mg/dL Normal 0.52-1.25 [facility] Comment on above: Performed By: #### H EMDF, PT, BMP3M, PHOS3, MG3, CK3 #### [address] #### VD25H #### [address] [place] [address] GFR/1.73 sq M predicted among blacks MDRD vol rate/area (S/P/Bld) mL/min/{1.73_m2} Normal >60 [facility] Comment on above: Performed By: #### H EMDF, PT, BMP3M, PHOS3, MG3, CK3 #### [address] #### VD25H #### [address] [place] [address] GFR/1.73 sq M predicted among non-blacks MDRD vol rate/area (S/P/Bld) mL/min/{1.73_m2} Normal >60 [facility] Comment on above: Result Comment: Sour ce- MDRD equation with creatinine calibration to IDMS(NKDEP) eGFR not recommended for drug dose adjustment Performed By: #### H EMDF, PT, BMP3M, PHOS3, MG3, CK3 #### [address] #### VD25H #### [facility] [address] [place] [address] Urea nitrogen mass conc 17 mg/dL Normal 7-20 [facility] Comment on above: Performed By: #### H EMDF, PT, BMP3M, PHOS3, MG3, CK3 #### [facility] [address] [place] [address] #### VD25H #### [facility] [address] [place] [address] Chloride molar conc 105 mmol/L Normal 98-107 [facility] Comment on above: Performed By: #### H EMDF, PT, BMP3M, PHOS3, MG3, CK3 #### [address] [place], [place] #### VD25H #### [facility] [address] [place] [address] Potassium molar conc 3.8 mmol/L Normal 3.5-5.1 [facility] Comment on above: Performed By: #### H EMDF, PT, BMP3M, PHOS3, MG3, CK3 #### [address] [place] [address] #### VD25H #### [facility] [address] [place] [address] Sodium molar conc 139 mmol/L Normal 135-145 [facility] Comment on above: Performed By: #### H EMDF, PT, BMP3M, PHOS3, MG3, CK3 #### [address] [place] [address] #### VD25H #### [facility] [address] [place] [address] CR Chest Portableon 07-14-19 19 CR Chest Portable Patient Name: KATHYA HOOPER Diagnostic Radiology Exam Date/Time 07/13/2018 06:05:45 EDT Exam CR Chest Portable Ordering Physician MARIA EUGENIA PEREZ Accession Number [id number] CPT4 Codes 64671 () Reason For Exam ETT placement Report [...] Transcribed Date and Time: 07/13/2018 6:33 Normal [facility] Calcium,Ionizedon 07-13-2018 Ionized Ca,Measured 4.10 mg/dL Low 4.30-5.20 [facility] Comment on above: Performed By: #### H EMDF, PT, BMP3M, PHOS3, MG3, CK3 #### [address] [address] #### VD25H #### [facility] [address] [place] [address] pH, Ionized Calcium 7.40 Normal 7.31-7.46 [facility] Comment on above: Performed By: #### H EMDF, PT, BMP3M, PHOS3, MG3, CK3 #### [address] [address] #### VD25H #### [facility] [address] [place] [address] Hemogram w/ Autodiffon 07-13 Abs Baso Cnt 0.0 10*3/uL Normal 0.0-0.2 [facility] Comment on above: Performed By: #### H EMDF, PT, BMP3M, PHOS3, MG3, CK3 #### [facility] [address] [place], [place] #### VD25H #### [facility] [address] [place] [address] Abs Neutrophile Cnt 11.2 10*3/uL High 1.8-7.0 [facility] Comment on above: Performed By: #### H EMDF, PT, BMP3M, PHOS3, MG3, CK3 #### [address] [place], [place] #### VD25H #### [facility] [address] [place] [address] Basophils/100 WBC (Bld) 0.3 % Normal 0.0-2.0 [facility] Comment on above: Performed By: #### H EMDF, PT, BMP3M, PHOS3, MG3, CK3 #### [address] #### VD25H #### [facility] [address] [place] [address] Eosinophils #/vol (Bld) 0.2 10*3/uL Normal 0.0-0.5 [facility] Comment on above: Performed By: #### H EMDF, PT, BMP3M, PHOS3, MG3, CK3 #### [address] #### VD25H #### [facility] [address] [place] [address] Eosinophils/100 WBC (Bld) 1.1 % Normal 1.0-6.0 [facility] Comment on above: Performed By: #### H EMDF, PT, BMP3M, PHOS3, MG3, CK3 #### [address] #### VD25H #### [facility] [address] [place] [address] Erythrocyte distribution width Ratio (RBC) 13.9 % Normal 11.5-14.5 [facility] Comment on above: Performed By: #### H EMDF, PT, BMP3M, PHOS3, MG3, CK3 #### [facility] [address] [place], [place] #### VD25H #### [facility] [address] [place] [address] Granulocytes/100 WBC (Bld) 82.2 % High 40.0-80.0 [facility] Comment on above: Performed By: #### H EMDF, PT, BMP3M, PHOS3, MG3, CK3 #### [address] [place], [place] #### VD25H #### [facility] [address] [place] [address] Hematocrit Volume Fraction (Bld) 36.7 % Low 40.0-52.0 [facility] Comment on above: Performed By: #### H EMDF, PT, BMP3M, PHOS3, MG3, CK3 #### [address] [place], [place] #### VD25H #### [facility] [address] [place] [address] Hemoglobin mass conc (Bld) 12.6 g/dL Low 13.0-18.0 [facility] Comment on above: Performed By: #### H EMDF, PT, BMP3M, PHOS3, MG3, CK3 #### [address] [address] [place], [place] #### VD25H #### [facility] [address] [place] [address] Lymphocytes #/vol (Bld) 1.1 10*3/uL Normal 1.0-4.3 [facility] Comment on above: Performed By: #### H EMDF, PT, BMP3M, PHOS3, MG3, CK3 #### [address] #### VD25H #### [facility] [address] [place] [address] Lymphocytes/100 WBC (Bld) 8.2 % Low 20.0-40.0 [facility] Comment on above: Performed By: #### H EMDF, PT, BMP3M, PHOS3, MG3, CK3 #### [address] #### VD25H #### [facility] [address] [place] [address] MCH Entitic mass (RBC) 29.6 pg Normal 26.0-34.0 [facility] Comment on above: Performed By: #### H EMDF, PT, BMP3M, PHOS3, MG3, CK3 #### [address] #### VD25H #### [facility] [address] [place] [address] MCHC mass conc (RBC) 34.4 % Normal 32.0-36.0 [facility] Comment on above: Performed By: #### H EMDF, PT, BMP3M, PHOS3, MG3, CK3 #### [address] #### VD25H #### [facility] [address] [facility] [place] [address] MCV Entitic volume (RBC) 86.2 fL Normal 80.0-98.0 [facility] Comment on above: Performed By: #### H EMDF, PT, BMP3M, PHOS3, MG3, CK3 #### [address] #### VD25H #### [facility] [address] [place] [address] Monocytes #/vol (Bld) 1.1 10*3/uL High 0.0-0.8 [facility] Comment on above: Performed By: #### H EMDF, PT, BMP3M, PHOS3, MG3, CK3 #### [address] #### VD25H #### [facility] [address] [place] [address] Monocytes/100 WBC (Bld) 8.2 % Normal 2.0-10.0 [facility] Comment on above: Performed By: #### H EMDF, PT, BMP3M, PHOS3, MG3, CK3 #### [facility] [address] [place], [place] #### VD25H #### [facility] [address] [place] [address] Platelet mean volume Entitic volume (Bld) 8.1 fL Normal 7.4-10.4 [facility] Comment on above: Performed By: #### H EMDF, PT, BMP3M, PHOS3, MG3, CK3 #### [address] #### VD25H #### [facility] [address] [place] [address] Platelets #/vol (Bld) 194 10*3/uL Normal 140-440 [facility] Comment on above: Performed By: #### H EMDF, PT, BMP3M, PHOS3, MG3, CK3 #### [address] #### VD25H #### [facility] [address] [place] [address] RBC #/vol (Bld) 4.26 10*6/uL Low 4.40-5.90 [facility] Comment on above: Performed By: #### H EMDF, PT, BMP3M, PHOS3, MG3, CK3 #### [address] #### VD25H #### [facility] [address] [place] [address] WBC #/vol (Bld) 13.7 10*3/uL High 3.6-10.7 [facility] Comment on above: Performed By: #### H EMDF, PT, BMP3M, PHOS3, MG3, CK3 #### [address] #### VD25H #### [facility] [address] [place] [address] Arterial Blood Gaseson 07-12 CO2 molar conc 26.4 mmol/L Normal 23.0-27.0 [facility] Comment on above: Performed By: #### H EMDF, PT, BMP3M, PHOS3, MG3, CK3 #### [address] [address] [place], [place] #### VD25H #### [facility] [address] [place] [address] HCO3 molar conc (Bld) 25.2 mmol/L High 21.0-25.0 [facility] Comment on above: Performed By: #### H EMDF, PT, BMP3M, PHOS3, MG3, CK3 #### [address] #### VD25H #### [place] [address] [place] [address] Hemoglobin mass conc (Bld) 13.9 g/dL Normal ScreenOnly [facility] Comment on above: Performed By: #### H EMDF, PT, BMP3M, PHOS3, MG3, CK3 #### [address] #### VD25H #### [address] [place] [address] Oxygen ppres (Bld) 83.9 mm[Hg] Normal 80.0-100.0 [facility] Comment on above: Performed By: #### H EMDF, PT, BMP3M, PHOS3, MG3, CK3 #### [address] #### VD25H #### [address] [place] [address] Oxygen saturation in Blood 96.3 % Normal 95.0-100.0 [facility] Comment on above: Performed By: #### H EMDF, PT, BMP3M, PHOS3, MG3, CK3 #### [address], [place] #### VD25H #### [facility] [address] [place] [address] pCO2 38.2 mm[Hg] Normal 35.0-45.0 [facility] Comment on above: Performed By: #### H EMDF, PT, BMP3M, PHOS3, MG3, CK3 #### [address] [place], [place] #### VD25H #### [facility] [address] [place] [address] pH (Bld) 7.437 Normal 7.350-7.450 [facility] Comment on above: Performed By: #### H EMDF, PT, BMP3M, PHOS3, MG3, CK3 #### [address] [place], [place] #### VD25H #### [facility] [address] [place] [address] Std Base Excess 1.1 mmol/L Normal -3.0-3.0 [facility] Comment on above: Performed By: #### H EMDF, PT, BMP3M, PHOS3, MG3, CK3 #### [address] [place] #### VD25H #### [facility] [address] [place] [address] FIO2 50% Normal [facility] Comment on above: Performed By: #### H EMDF, PT, BMP3M, PHOS3, MG3, CK3 #### [address] [place], [place] #### VD25H #### [facility] [address] [place] [address] CO2 molar conc 27.2 mmol/L High 23.0-27.0 [facility] Comment on above: Performed By: #### H EMDF, PT, BMP3M, PHOS3, MG3, CK3 #### [address] [place] #### VD25H #### [facility] [address] [place] [address] HCO3 molar conc (Bld) 26.1 mmol/L High 21.0-25.0 [facility] Comment on above: Performed By: #### H EMDF, PT, BMP3M, PHOS3, MG3, CK3 #### [address] [place] #### VD25H #### [facility] [address] [place] [address] Hemoglobin mass conc (Bld) 14.7 g/dL Normal ScreenOnly [facility] Comment on above: Performed By: #### H EMDF, PT, BMP3M, PHOS3, MG3, CK3 #### [address] #### VD25H #### [place] [address] [place] [address] Oxygen ppres (Bld) 125.7 mm[Hg] High 80.0-100.0 [facility] Comment on above: Performed By: #### H EMDF, PT, BMP3M, PHOS3, MG3, CK3 #### [address] #### VD25H #### [place] [address] [place] [address] Oxygen saturation in Blood 98.6 % Normal 95.0-100.0 [facility] Comment on above: Performed By: #### H EMDF, PT, BMP3M, PHOS3, MG3, CK3 #### [address] [place], [place] #### VD25H #### [facility] [address] [place] [address] pCO2 37.5 mm[Hg] Normal 35.0-45.0 [facility] Comment on above: Performed By: #### H EMDF, PT, BMP3M, PHOS3, MG3, CK3 #### [address] [address] [place], [place] #### VD25H #### [facility] [address] [place] [address] pH (Bld) 7.460 High 7.350-7.450 [facility] Comment on above: Performed By: #### H EMDF, PT, BMP3M, PHOS3, MG3, CK3 #### [facility] [address] [place], [place] #### VD25H #### [facility] [address] [place] [address] Std Base Excess 2.4 mmol/L Normal -3.0-3.0 [facility] Comment on above: Performed By: #### H EMDF, PT, BMP3M, PHOS3, MG3, CK3 #### [address] [place] #### VD25H #### [facility] [address] [place] [address] FIO2 62.5 Normal [facility] Comment on above: Performed By: #### H EMDF, PT, BMP3M, PHOS3, MG3, CK3 #### [address] [place] #### VD25H #### [facility] [address] [place] [address] Basic Metabolic Panelon 03- Anion gap molar conc 6 Normal [facility] Comment on above: Performed By: #### H EMDF, PT, BMP3M, PHOS3, MG3, CK3 #### [address] [place] #### VD25H #### [facility] [address] [place] [address] Calcium mass conc 8.0 mg/dL Low 8.4-10.4 [facility] Comment on above: Performed By: #### H EMDF, PT, BMP3M, PHOS3, MG3, CK3 #### [address] [place] #### VD25H #### [facility] [address] [place] [address] CO2 molar conc 28 mmol/L Normal 22-30 [facility] Comment on above: Performed By: #### H EMDF, PT, BMP3M, PHOS3, MG3, CK3 #### [address] #### VD25H #### [facility] [address] [place] [address] Creatinine mass conc 0.62 mg/dL Normal 0.52-1.25 [facility] Comment on above: Performed By: #### H EMDF, PT, BMP3M, PHOS3, MG3, CK3 #### [address] #### VD25H #### [facility] [address] [place] [address] GFR/1.73 sq M predicted among blacks MDRD vol rate/area (S/P/Bld) mL/min/{1.73_m2} Normal >60 [facility] Comment on above: Performed By: #### H EMDF, PT, BMP3M, PHOS3, MG3, CK3 #### [address] #### VD25H #### [facility] [address] [place] [address] GFR/1.73 sq M predicted among non-blacks MDRD vol rate/area (S/P/Bld) mL/min/{1.73_m2} Normal >60 [facility] Comment on above: Result Comment: Sour ce- MDRD equation with creatinine calibration to IDMS(NKDEP) eGFR not recommended for drug dose adjustment Performed By: #### H EMDF, PT, BMP3M, PHOS3, MG3, CK3 #### [address] #### VD25H #### [facility] [address] [place] [address] Glucose mass conc 125 mg/dL High 70-100 [facility] Comment on above: Performed By: #### H EMDF, PT, BMP3M, PHOS3, MG3, CK3 #### [address] [place] #### VD25H #### [facility] [address] [place] [address] Urea nitrogen mass conc 12 mg/dL Normal 7-20 [facility] Comment on above: Performed By: #### H EMDF, PT, BMP3M, PHOS3, MG3, CK3 #### [address] [place] #### VD25H #### [facility] [address] [place] [address] Chloride molar conc 104 mmol/L Normal 98-107 [facility] Comment on above: Performed By: #### H EMDF, PT, BMP3M, PHOS3, MG3, CK3 #### [address] [facility], [place] #### VD25H #### [facility] [address] [place] [address] Potassium molar conc 3.6 mmol/L Normal 3.5-5.1 [facility] Comment on above: Performed By: #### H EMDF, PT, BMP3M, PHOS3, MG3, CK3 #### [address] [address] [place], [place] #### VD25H #### [facility] [address] [place] [address] Sodium molar conc 138 mmol/L Normal 135-145 [facility] Comment on above: Performed By: #### H EMDF, PT, BMP3M, PHOS3, MG3, CK3 #### [place] [address] [facility], [place] #### VD25H #### [facility] [address] [place] [address] CR Chest Portableon 07-13-19 19 CR Chest Portable Patient Name: KATHYA HOOPER Diagnostic Radiology Exam Date/Time 07/12/2018 10:18:11 EDT Exam CR Chest Portable Ordering Physician MARIA EUGENIA PEREZ Accession Number [id number] CPT4 Codes 00307 () Reason For Exam ETT Placement Report [...] Transcribed Date and Time: 07/12/2018 1:21 Normal [facility] CR Chest Portable Patient Name: KATHYA HOOPER Diagnostic Radiology Exam Date/Time 07/12/2018 06:19:03 EDT Exam CR Chest Portable Ordering Physician MD NATE, NICOLE HOLLEY Accession Number [id number] CPT4 Codes 75843 () Reason For Exam dyspnea Report PORTABLE [...] Transcribed Date and Time: 07/12/2018 8:01 Normal [facility] Hemogram w/ Autodiffon 07-12 Abs Baso Cnt 0.0 10*3/uL Normal 0.0-0.2 [facility] Comment on above: Performed By: #### H EMDF, PT, BMP3M, PHOS3, MG3, CK3 #### [facility] [address] [place] [address] #### VD25H #### [facility] [address] [place] [address] Abs Neutrophile Cnt 10.2 10*3/uL High 1.8-7.0 [facility] Comment on above: Performed By: #### H EMDF, PT, BMP3M, PHOS3, MG3, CK3 #### [facility] [address] [place] [address] #### VD25H #### [facility] [address] [place] [address] Basophils/100 WBC (Bld) 0.4 % Normal 0.0-2.0 [facility] Comment on above: Performed By: #### H EMDF, PT, BMP3M, PHOS3, MG3, CK3 #### [address] [place], [place] #### VD25H #### [facility] [address] [place] [address] Eosinophils #/vol (Bld) 0.1 10*3/uL Normal 0.0-0.5 [facility] Comment on above: Performed By: #### H EMDF, PT, BMP3M, PHOS3, MG3, CK3 #### [address] [place] #### VD25H #### [facility] [address] [place] [address] Eosinophils/100 WBC (Bld) 0.6 % Low 1.0-6.0 [facility] Comment on above: Performed By: #### H EMDF, PT, BMP3M, PHOS3, MG3, CK3 #### [address] #### VD25H #### [facility] [address] [place] [address] Erythrocyte distribution width Ratio (RBC) 13.5 % Normal 11.5-14.5 [facility] Comment on above: Performed By: #### H EMDF, PT, BMP3M, PHOS3, MG3, CK3 #### [address] #### VD25H #### [facility] [address] [place] [address] Granulocytes/100 WBC (Bld) 84.7 % High 40.0-80.0 [facility] Comment on above: Performed By: #### H EMDF, PT, BMP3M, PHOS3, MG3, CK3 #### [address] #### VD25H #### [facility] [address] [place] [address] Hematocrit Volume Fraction (Bld) 39.7 % Low 40.0-52.0 [facility] Comment on above: Performed By: #### H EMDF, PT, BMP3M, PHOS3, MG3, CK3 #### [address] [place] [address] [place] #### VD25H #### [facility] [address] [place] [address] Hemoglobin mass conc (Bld) 13.5 g/dL Normal 13.0-18.0 [facility] Comment on above: Performed By: #### H EMDF, PT, BMP3M, PHOS3, MG3, CK3 #### [address] [place], [place] #### VD25H #### [facility] [address] [place] [address] Lymphocytes #/vol (Bld) 0.9 10*3/uL Low 1.0-4.3 [facility] Comment on above: Performed By: #### H EMDF, PT, BMP3M, PHOS3, MG3, CK3 #### [address] #### VD25H #### [facility] [address] [place] [address] Lymphocytes/100 WBC (Bld) 7.6 % Low 20.0-40.0 [facility] Comment on above: Performed By: #### H EMDF, PT, BMP3M, PHOS3, MG3, CK3 #### [address] #### VD25H #### [facility] [address] [place] [address] MCH Entitic mass (RBC) 29.6 pg Normal 26.0-34.0 [facility] Comment on above: Performed By: #### H EMDF, PT, BMP3M, PHOS3, MG3, CK3 #### [address] #### VD25H #### [facility] [address] [place] [address] MCHC mass conc (RBC) 34.1 % Normal 32.0-36.0 [facility] Comment on above: Performed By: #### H EMDF, PT, BMP3M, PHOS3, MG3, CK3 #### [place] [address] [place], [place] #### VD25H #### [facility] [address] [place] [address] MCV Entitic volume (RBC) 87.0 fL Normal 80.0-98.0 [facility] Comment on above: Performed By: #### H EMDF, PT, BMP3M, PHOS3, MG3, CK3 #### [address] #### VD25H #### [facility] [address] [place] [address] Monocytes #/vol (Bld) 0.8 10*3/uL Normal 0.0-0.8 [facility] Comment on above: Performed By: #### H EMDF, PT, BMP3M, PHOS3, MG3, CK3 #### [address] #### VD25H #### [facility] [address] [place] [address] Monocytes/100 WBC (Bld) 6.7 % Normal 2.0-10.0 [facility] Comment on above: Performed By: #### H EMDF, PT, BMP3M, PHOS3, MG3, CK3 #### [address] #### VD25H #### [facility] [address] [place] [address] Platelet mean volume Entitic volume (Bld) 8.4 fL Normal 7.4-10.4 [facility] Comment on above: Performed By: #### H EMDF, PT, BMP3M, PHOS3, MG3, CK3 #### [address] #### VD25H #### [facility] [address] [place] [address] Platelets #/vol (Bld) 185 10*3/uL Normal 140-440 [facility] Comment on above: Performed By: #### H EMDF, PT, BMP3M, PHOS3, MG3, CK3 #### [facility] [address] [place], [place] #### [id number] #### [facility] [address] [place] [address] RBC #/vol (Bld) 4.57 10*6/uL Normal 4.40-5.90 [facility] Comment on above: Performed By: #### H EMDF, PT, BMP3M, PHOS3, MG3, CK3 #### [facility] [address] [place], [place] #### [id number] #### [facility] [address] [place] [place] [address] WBC #/vol (Bld) 12.1 10*3/uL High 3.6-10.7 [facility] Comment on above: Performed By: #### H EMDF, PT, BMP3M, PHOS3, MG3, CK3 #### [facility] [address] [place], [place] #### VD25H #### [facility] [address] [place] [address] VL Venous Duplex US Lower Ex t Bilateralon 07-12-2018 VL Venous Duplex US Lower Ext Bilateral Patient Name: KATHYA HOOPER Ultrasound Exam Date/Time 07/12/2018 17:20:46 EDT Exam VL Venous Duplex US Lower Ext Bilateral Ordering Physician MD MOISÉS, JOSHUA Accession Number [id number] CPT4 Codes 45332 () Reason For Exam leg swelling Report [facility] --- Lower Extremity Venous Duplex Report Patient Name: Kathya Hooper : 1955 Study Date: 07/12/2018 W (63yrs) Age: 63 Account: [id number] Gender: M Loc: [id number] BP: Ordering: Joshua Avelar Technologist: Ordering Physician: Joshua Avelar English Professor: Elizabeth Sanford RVT Interpreting Physician: Krysta Arora --- Location: [facility] --- INDICATIONS: Edema. bilateral calves. --- CONCLUSIONS [...] performed. The images were obtained using a [employer] E9 vascular ultrasound machine. --- VENOUS FLOW [...] ---------+-------+--- --+ Electronically signed by: Krysta Arora [id number] Final Dictated: 07/13/2018 8:45 am Dictating Physician: KRYSTA ARORA Signed Date and Time: 07/13/2018 8:45 am Signed by: KRYSTA ARORA Normal [facility] Basic Metabolic Panelon 06-29 Calcium mass conc 7.8 mg/dL Low 8.4-10.4 [facility] Comment on above: Performed By: #### H EMDF, PT, BMP3M, PHOS3, MG3, CK3 #### [place] [address] [place], [place] #### VD25H #### [facility] [address] [facility] [place] [address] Anion gap molar conc 4 Normal [facility] Comment on above: Performed By: #### H EMDF, PT, BMP3M, PHOS3, MG3, CK3 #### [facility] [address] [place], [place] #### VD25H #### [facility] [address] [facility] [place] [address] CO2 molar conc 26 mmol/L Normal 22-30 [facility] Comment on above: Performed By: #### H EMDF, PT, BMP3M, PHOS3, MG3, CK3 #### [address] #### VD25H #### [facility] [address] [place] [address] Glucose mass conc 118 mg/dL High 70-100 [facility] Comment on above: Performed By: #### H EMDF, PT, BMP3M, PHOS3, MG3, CK3 #### [address] #### VD25H #### [facility] [address] [place] [address] Urea nitrogen mass conc 19 mg/dL Normal 7-20 [facility] Comment on above: Performed By: #### H EMDF, PT, BMP3M, PHOS3, MG3, CK3 #### [address] #### VD25H #### [facility] [address] [place] [address] Creatinine mass conc 0.74 mg/dL Normal 0.52-1.25 [facility] Comment on above: Performed By: #### H EMDF, PT, BMP3M, PHOS3, MG3, CK3 #### [address] #### VD25H #### [facility] [address] [place] [address] GFR/1.73 sq M predicted among blacks MDRD vol rate/area (S/P/Bld) mL/min/{1.73_m2} Normal >60 [facility] Comment on above: Performed By: #### H EMDF, PT, BMP3M, PHOS3, MG3, CK3 #### [address] #### VD25H #### [facility] [address] [place] [address] GFR/1.73 sq M predicted among non-blacks MDRD vol rate/area (S/P/Bld) mL/min/{1.73_m2} Normal >60 [facility] Comment on above: Result Comment: Sour ce- MDRD equation with creatinine calibration to IDMS(NKDEP) eGFR not recommended for drug dose adjustment Performed By: #### H EMDF, PT, BMP3M, PHOS3, MG3, CK3 #### [address] #### VD25H #### [facility] [address] [place] [address] Chloride molar conc 112 mmol/L High 98-107 [facility] Comment on above: Performed By: #### H EMDF, PT, BMP3M, PHOS3, MG3, CK3 #### [facility] [address] [place] [address] #### VD25H #### [facility] [address] [place] [address] Potassium molar conc 3.8 mmol/L Normal 3.5-5.1 [facility] Comment on above: Performed By: #### H EMDF, PT, BMP3M, PHOS3, MG3, CK3 #### [facility] [address] [place] [address] #### VD25H #### [facility] [address] [place] [address] Sodium molar conc 141 mmol/L Normal 135-145 [facility] Comment on above: Performed By: #### H EMDF, PT, BMP3M, PHOS3, MG3, CK3 #### [facility] [address] [place] [address] #### VD25H #### [facility] [address] [place] [address] CR Chest 1 View Frontalon CR Chest 1 View Frontal Patient Name: KATHYA FELDER Diagnostic Radiology Exam Date/Time 07/11/2018 06:36:48 EDT Exam CR Chest 1 View Frontal Ordering Physician MD MOISÉS, JOSHUA Accession Number [id number] CPT4 Codes 74740 () Reason For Exam dyspnea Report EXAM [...] Transcribed Date and Time: 07/11/2018 7:05 Normal [facility] Hemogram w/ Autodiffon 07-11 Abs Baso Cnt 0.0 10*3/uL Normal 0.0-0.2 [facility] Comment on above: Performed By: #### H EMDF, PT, BMP3M, PHOS3, MG3, CK3 #### [facility] [address] [place], [place] #### VD25H #### [facility] [address] [place] [address] Abs Neutrophile Cnt 8.8 10*3/uL High 1.8-7.0 [facility] Comment on above: Performed By: #### H EMDF, PT, BMP3M, PHOS3, MG3, CK3 #### [facility] [address] [place], [place] #### VD25H #### [facility] [address] [place] [address] Basophils/100 WBC (Bld) 0.4 % Normal 0.0-2.0 [facility] Comment on above: Performed By: #### H EMDF, PT, BMP3M, PHOS3, MG3, CK3 #### [facility] [address] [place], [place] #### VD25H #### [facility] [address] [place] [address] Eosinophils #/vol (Bld) 0.0 10*3/uL Normal 0.0-0.5 [facility] Comment on above: Performed By: #### H EMDF, PT, BMP3M, PHOS3, MG3, CK3 #### [address] #### VD25H #### [facility] [address] [place] [address] Eosinophils/100 WBC (Bld) 0.4 % Low 1.0-6.0 [facility] Comment on above: Performed By: #### H EMDF, PT, BMP3M, PHOS3, MG3, CK3 #### [address] #### VD25H #### [facility] [address] [place] [address] Erythrocyte distribution width Ratio (RBC) 13.7 % Normal 11.5-14.5 [facility] Comment on above: Performed By: #### H EMDF, PT, BMP3M, PHOS3, MG3, CK3 #### [address] #### VD25H #### [facility] [address] [place] [address] Granulocytes/100 WBC (Bld) 80.6 % High 40.0-80.0 [facility] Comment on above: Performed By: #### H EMDF, PT, BMP3M, PHOS3, MG3, CK3 #### [address] #### VD25H #### [facility] [address] [place] [address] Hematocrit Volume Fraction (Bld) 32.8 % Low 40.0-52.0 [facility] Comment on above: Performed By: #### H EMDF, PT, BMP3M, PHOS3, MG3, CK3 #### [address] #### VD25H #### [facility] [address] [place] [address] Hemoglobin mass conc (Bld) 11.4 g/dL Low 13.0-18.0 [facility] Comment on above: Performed By: #### H EMDF, PT, BMP3M, PHOS3, MG3, CK3 #### [address] #### VD25H #### [facility] [address] [place] [address] Lymphocytes #/vol (Bld) 1.3 10*3/uL Normal 1.0-4.3 [facility] Comment on above: Performed By: #### H EMDF, PT, BMP3M, PHOS3, MG3, CK3 #### [address] #### VD25H #### [place] [address] [place] [address] Lymphocytes/100 WBC (Bld) 11.5 % Low 20.0-40.0 [facility] Comment on above: Performed By: #### H EMDF, PT, BMP3M, PHOS3, MG3, CK3 #### [address] #### VD25H #### [facility] [address] [place] [address] MCH Entitic mass (RBC) 30.2 pg Normal 26.0-34.0 [facility] Comment on above: Performed By: #### H EMDF, PT, BMP3M, PHOS3, MG3, CK3 #### [address] #### VD25H #### [facility] [address] [place] [address] MCHC mass conc (RBC) 34.7 % Normal 32.0-36.0 [facility] Comment on above: Performed By: #### H EMDF, PT, BMP3M, PHOS3, MG3, CK3 #### [address] #### VD25H #### [facility] [address] [place] [address] MCV Entitic volume (RBC) 86.9 fL Normal 80.0-98.0 [facility] Comment on above: Performed By: #### H EMDF, PT, BMP3M, PHOS3, MG3, CK3 #### [address] #### VD25H #### [facility] [address] [place] [address] Monocytes #/vol (Bld) 0.8 10*3/uL Normal 0.0-0.8 [facility] Comment on above: Performed By: #### H EMDF, PT, BMP3M, PHOS3, MG3, CK3 #### [address] #### VD25H #### [facility] [address] [place] [address] Monocytes/100 WBC (Bld) 7.1 % Normal 2.0-10.0 [facility] Comment on above: Performed By: #### H EMDF, PT, BMP3M, PHOS3, MG3, CK3 #### [address] #### VD25H #### [facility] [address] [place] [address] Platelet mean volume Entitic volume (Bld) 8.8 fL Normal 7.4-10.4 [facility] Comment on above: Performed By: #### H EMDF, PT, BMP3M, PHOS3, MG3, CK3 #### [address] #### VD25H #### [facility] [address] [place] [address] Platelets #/vol (Bld) 158 10*3/uL Normal 140-440 [facility] Comment on above: Performed By: #### H EMDF, PT, BMP3M, PHOS3, MG3, CK3 #### [address] [place] #### VD25H #### [facility] [address] [place] [address] RBC #/vol (Bld) 3.78 10*6/uL Low 4.40-5.90 [facility] Comment on above: Performed By: #### H EMDF, PT, BMP3M, PHOS3, MG3, CK3 #### [address] [place] [place], [place] #### VD25H #### [facility] [address] [place] [address] WBC #/vol (Bld) 10.9 10*3/uL High 3.6-10.7 [facility] Comment on above: Performed By: #### H EMDF, PT, BMP3M, PHOS3, MG3, CK3 #### [address] #### VD25H #### [facility] [address] [place] [address] Magnesiumon 07-11-2018 Magnesium mass conc 2.3 mg/dL Normal 1.6-2.3 [facility] [employer] Comment on above: Performed By: #### H EMDF, PT, BMP3M, PHOS3, MG3, CK3 #### [address] #### VD25H #### [facility] [address] [place] [address] Phosphoruson 07-11-2018 Phosphate mass conc 2.8 mg/dL Normal 2.5-4.5 [facility] [employer] Comment on above: Performed By: #### H EMDF, PT, BMP3M, PHOS3, MG3, CK3 #### [address] #### VD25H #### [facility] [address] [place] [address] Basic Metabolic Panelon 06-29 Calcium mass conc 8.9 mg/dL Normal 8.4-10.4 [facility] Comment on above: Performed By: #### H EMDF, PT, BMP3M, PHOS3, MG3, CK3 #### [address] [place] [address] #### VD25H #### [facility] [address] [place] [address] Glucose mass conc 133 mg/dL High 70-100 [facility] Comment on above: Performed By: #### H EMDF, PT, BMP3M, PHOS3, MG3, CK3 #### [address] [place] [address] #### VD25H #### [facility] [address] [place] [address] Anion gap molar conc 4 Normal [facility] Comment on above: Performed By: #### H EMDF, PT, BMP3M, PHOS3, MG3, CK3 #### [address] [address] [place] [place] #### VD25H #### [facility] [address] [place] [address] CO2 molar conc 27 mmol/L Normal 22-30 [facility] Comment on above: Performed By: #### H EMDF, PT, BMP3M, PHOS3, MG3, CK3 #### [address] [address] [place] [place], [place] #### VD25H #### [facility] [address] [place] [address] Creatinine mass conc 0.69 mg/dL Normal 0.52-1.25 [facility] Comment on above: Performed By: #### H EMDF, PT, BMP3M, PHOS3, MG3, CK3 #### [address] [place] [address] #### VD25H #### [facility] [address] [place] [address] GFR/1.73 sq M predicted among blacks MDRD vol rate/area (S/P/Bld) mL/min/{1.73_m2} Normal >60 [facility] Comment on above: Performed By: #### H EMDF, PT, BMP3M, PHOS3, MG3, CK3 #### [address] [place], [place] #### VD25H #### [facility] [address] [place] [address] GFR/1.73 sq M predicted among non-blacks MDRD vol rate/area (S/P/Bld) mL/min/{1.73_m2} Normal >60 [facility] Comment on above: Result Comment: Sour ce- MDRD equation with creatinine calibration to IDMS(NKDEP) eGFR not recommended for drug dose adjustment Performed By: #### H EMDF, PT, BMP3M, PHOS3, MG3, CK3 #### [address] #### VD25H #### [facility] [address] [place] [address] Urea nitrogen mass conc 16 mg/dL Normal 7-20 [facility] Comment on above: Performed By: #### H EMDF, PT, BMP3M, PHOS3, MG3, CK3 #### [address] [facility], [place] #### VD25H #### [facility] [address] [place] [address] Potassium molar conc 4.1 mmol/L Normal 3.5-5.1 [facility] Comment on above: Performed By: #### H EMDF, PT, BMP3M, PHOS3, MG3, CK3 #### [address], [place] #### VD25H #### [facility] [address] [place] [address] Sodium molar conc 142 mmol/L Normal 135-145 [facility] Comment on above: Performed By: #### H EMDF, PT, BMP3M, PHOS3, MG3, CK3 #### [address] #### VD25H #### [facility] [address] [place] [address] Chloride molar conc 110 mmol/L High 98-107 [facility] Comment on above: Performed By: #### H EMDF, PT, BMP3M, PHOS3, MG3, CK3 #### [facility] [address] [place] [address] #### VD25H #### [facility] [address] [place] [address] CKon 07-10-2018 CK enzyme act/vol 1291 U/L High 30-170 [facility] Comment on above: Performed By: #### H EMDF, PT, BMP3M, PHOS3, MG3, CK3 #### [facility] [address] [place], [place] #### VD25H #### [facility] [address] [place] [address] CK enzyme act/vol 1382 U/L High 30-170 [facility] Comment on above: Performed By: #### H EMDF, PT, BMP3M, PHOS3, MG3, CK3 #### [address] [place] [address] [place], [place] #### VD25H #### [facility] [address] [place] [address] CR Chest 1 View Frontalon CR Chest 1 View Frontal Patient Name: KATHYA FELDER Diagnostic Radiology Exam Date/Time 07/10/2018 06:38:06 EDT Exam CR Chest 1 View Frontal Ordering Physician [facility] Accession Number [id number] CPT4 Codes 78489 () Reason For Exam dyspnea Report EXAMINATION: [...] Transcribed Date and Time: 07/10/2018 8:57 Normal [facility] Hemogram w/ Autodiffon 07-10 Abs Baso Cnt 0.0 10*3/uL Normal 0.0-0.2 [facility] Comment on above: Performed By: #### H EMDF, PT, BMP3M, PHOS3, MG3, CK3 #### [facility] [address] [place], [place] #### VD25H #### [facility] [address] [place] [address] Abs Neutrophile Cnt 12.2 10*3/uL High 1.8-7.0 [facility] Comment on above: Performed By: #### H EMDF, PT, BMP3M, PHOS3, MG3, CK3 #### [facility] [address] [place], [place] #### VD25H #### [facility] [address] [place] [address] Basophils/100 WBC (Bld) 0.3 % Normal 0.0-2.0 [facility] Comment on above: Performed By: #### H EMDF, PT, BMP3M, PHOS3, MG3, CK3 #### [facility] [address] [place], [place] #### VD25H #### [facility] [address] [place] [address] Eosinophils #/vol (Bld) 0.0 10*3/uL Normal 0.0-0.5 [facility] Comment on above: Performed By: #### H EMDF, PT, BMP3M, PHOS3, MG3, CK3 #### [address] #### VD25H #### [facility] [address] [place] [address] Eosinophils/100 WBC (Bld) 0.0 % Low 1.0-6.0 [facility] Comment on above: Performed By: #### H EMDF, PT, BMP3M, PHOS3, MG3, CK3 #### [address] #### VD25H #### [facility] [address] [place] [address] Erythrocyte distribution width Ratio (RBC) 13.9 % Normal 11.5-14.5 [facility] Comment on above: Performed By: #### H EMDF, PT, BMP3M, PHOS3, MG3, CK3 #### [address] #### VD25H #### [facility] [address] [place] [address] Granulocytes/100 WBC (Bld) 89.5 % High 40.0-80.0 [facility] Comment on above: Performed By: #### H EMDF, PT, BMP3M, PHOS3, MG3, CK3 #### [address] #### VD25H #### [facility] [address] [place] [address] Hematocrit Volume Fraction (Bld) 36.0 % Low 40.0-52.0 [facility] Comment on above: Performed By: #### H EMDF, PT, BMP3M, PHOS3, MG3, CK3 #### [address] #### VD25H #### [facility] [address] [place] [address] Hemoglobin mass conc (Bld) 12.3 g/dL Low 13.0-18.0 [facility] Comment on above: Performed By: #### H EMDF, PT, BMP3M, PHOS3, MG3, CK3 #### [address] #### VD25H #### [facility] [address] [place] [address] Lymphocytes #/vol (Bld) 0.6 10*3/uL Low 1.0-4.3 [facility] Comment on above: Performed By: #### H EMDF, PT, BMP3M, PHOS3, MG3, CK3 #### [address] #### VD25H #### [place] [address] [place] [address] Lymphocytes/100 WBC (Bld) 4.3 % Low 20.0-40.0 [facility] Comment on above: Performed By: #### H EMDF, PT, BMP3M, PHOS3, MG3, CK3 #### [address] #### VD25H #### [place] [address] [place] [address] MCH Entitic mass (RBC) 29.8 pg Normal 26.0-34.0 [facility] Comment on above: Performed By: #### H EMDF, PT, BMP3M, PHOS3, MG3, CK3 #### [address] #### VD25H #### [facility] [address] [place] [address] MCHC mass conc (RBC) 34.2 % Normal 32.0-36.0 [facility] Comment on above: Performed By: #### H EMDF, PT, BMP3M, PHOS3, MG3, CK3 #### [address] #### VD25H #### [facility] [address] [place] [address] MCV Entitic volume (RBC) 87.1 fL Normal 80.0-98.0 [facility] Comment on above: Performed By: #### H EMDF, PT, BMP3M, PHOS3, MG3, CK3 #### [address] #### VD25H #### [facility] [address] [place] [address] Monocytes #/vol (Bld) 0.8 10*3/uL Normal 0.0-0.8 [facility] Comment on above: Performed By: #### H EMDF, PT, BMP3M, PHOS3, MG3, CK3 #### [address] #### VD25H #### [facility] [address] [place] [address] Monocytes/100 WBC (Bld) 5.9 % Normal 2.0-10.0 [facility] Comment on above: Performed By: #### H EMDF, PT, BMP3M, PHOS3, MG3, CK3 #### [address] #### VD25H #### [facility] [address] [place] [address] Platelet mean volume Entitic volume (Bld) 8.4 fL Normal 7.4-10.4 [facility] Comment on above: Performed By: #### H EMDF, PT, BMP3M, PHOS3, MG3, CK3 #### [address] #### VD25H #### [facility] [address] [place] [address] Platelets #/vol (Bld) 155 10*3/uL Normal 140-440 [facility] Comment on above: Performed By: #### H EMDF, PT, BMP3M, PHOS3, MG3, CK3 #### [facility] [address] [place], [place] #### VD25H #### [facility] [address] [place] [address] RBC #/vol (Bld) 4.13 10*6/uL Low 4.40-5.90 [facility] Comment on above: Performed By: #### H EMDF, PT, BMP3M, PHOS3, MG3, CK3 #### [place] [address] [place], [place] #### VD25H #### [facility] [address] [place] [address] WBC #/vol (Bld) 13.6 10*3/uL High 3.6-10.7 [facility] Comment on above: Performed By: #### H EMDF, PT, BMP3M, PHOS3, MG3, CK3 #### [address] #### VD25H #### [facility] [address] [place] [address] Magnesiumon 07-10-2018 Magnesium mass conc 2.3 mg/dL Normal 1.6-2.3 [facility] Comment on above: Performed By: #### H EMDF, PT, BMP3M, PHOS3, MG3, CK3 #### [address] #### VD25H #### [facility] [address] [place] [address] Phosphoruson 07-10-2018 Phosphate mass conc 2.7 mg/dL Normal 2.5-4.5 [facility] Comment on above: Performed By: #### H EMDF, PT, BMP3M, PHOS3, MG3, CK3 #### [address] #### VD25H #### [facility] [address] [place] [address] Add on test from HISon 07-09 Add on test from HIS Accepted Normal [facility] Comment on above: Result Comment: Spec imen available & acceptable for analysis. Performed By: #### A DDON #### [address] Arterial Blood Gaseson 07-09 CO2 molar conc 24.5 mmol/L Normal 23.0-27.0 [facility] Comment on above: Performed By: #### H EMDF, PT, BMP3M, PHOS3, MG3, CK3 #### [place] [address] [place], [place] #### VD25H #### [facility] [address] [place] [address] HCO3 molar conc (Bld) 23.2 mmol/L Normal 21.0-25.0 [facility] Comment on above: Performed By: #### H EMDF, PT, BMP3M, PHOS3, MG3, CK3 #### [place] [address] [place], [place] #### VD25H #### [facility] [address] [place] [address] Hemoglobin mass conc (Bld) 15.7 g/dL Normal ScreenOnly [facility] Comment on above: Performed By: #### H EMDF, PT, BMP3M, PHOS3, MG3, CK3 #### [address] [place] [address] [place], [place] #### VD25H #### [facility] [address] [place] [address] Oxygen ppres (Bld) 397.4 mm[Hg] High 80.0-100.0 [facility] Comment on above: Performed By: #### H EMDF, PT, BMP3M, PHOS3, MG3, CK3 #### [address] #### VD25H #### [place] [address] [place] [address] Oxygen saturation in Blood 99.2 % Normal 95.0-100.0 [facility] Comment on above: Performed By: #### H EMDF, PT, BMP3M, PHOS3, MG3, CK3 #### [place] [address] [place] #### VD25H #### [facility] [address] [place] [address] pCO2 42.3 mm[Hg] Normal 35.0-45.0 [facility] Comment on above: Performed By: #### H EMDF, PT, BMP3M, PHOS3, MG3, CK3 #### [place] [address] [place], [place] #### VD25H #### [facility] [address] [place] [address] pH (Bld) 7.357 Normal 7.350-7.450 [facility] [facility] Comment on above: Performed By: #### H EMDF, PT, BMP3M, PHOS3, MG3, CK3 #### [address] #### VD25H #### [place] [address] [place] [address] Std Base Excess -2.3 mmol/L Normal -3.0-3.0 [facility] Comment on above: Performed By: #### H EMDF, PT, BMP3M, PHOS3, MG3, CK3 #### [address] #### VD25H #### [place] [address] [place] [address] FIO2 100% Normal [facility] Comment on above: Performed By: #### H EMDF, PT, BMP3M, PHOS3, MG3, CK3 #### [place] [address] [place], [place] #### VD25H #### [place] [address] [place] [address] Basic Metabolic Panelon 06-29 Calcium mass conc 8.6 mg/dL Normal 8.4-10.4 [facility] Comment on above: Performed By: #### H EMDF, PT, BMP3M, PHOS3, MG3, CK3 #### [place] [address] [place] [address] #### VD25H #### [facility] [address] [place] [address] Glucose mass conc 150 mg/dL High 70-100 [facility] Comment on above: Performed By: #### H EMDF, PT, BMP3M, PHOS3, MG3, CK3 #### [place] [address] [place] [place], [place] #### VD25H #### [facility] [address] [place] [address] Anion gap molar conc 7 Normal [facility] Comment on above: Performed By: #### H EMDF, PT, BMP3M, PHOS3, MG3, CK3 #### [address] #### VD25H #### [facility] [address] [place] [address] CO2 molar conc 26 mmol/L Normal 22-30 [facility] Comment on above: Performed By: #### H EMDF, PT, BMP3M, PHOS3, MG3, CK3 #### [place] [address] [place] [place], [place] #### VD25H #### [facility] [address] [place] [address] Creatinine mass conc 0.80 mg/dL Normal 0.52-1.25 [facility] Comment on above: Performed By: #### H EMDF, PT, BMP3M, PHOS3, MG3, CK3 #### [address], [place] #### VD25H #### [facility] [address] [place] [address] GFR/1.73 sq M predicted among blacks MDRD vol rate/area (S/P/Bld) mL/min/{1.73_m2} Normal >60 [facility] Comment on above: Performed By: #### H EMDF, PT, BMP3M, PHOS3, MG3, CK3 #### [facility] [address] [facility], [place] #### VD25H #### [facility] [address] [place] [address] GFR/1.73 sq M predicted among non-blacks MDRD vol rate/area (S/P/Bld) mL/min/{1.73_m2} Normal >60 [facility] Comment on above: Result Comment: Sour ce- MDRD equation with creatinine calibration to IDMS(NKDEP) eGFR not recommended for drug dose adjustment Performed By: #### H EMDF, PT, BMP3M, PHOS3, MG3, CK3 #### [place] [address] [address] [facility], [place] #### VD25H #### [facility] [address] [place] [address] Urea nitrogen mass conc 16 mg/dL Normal 7-20 [facility] Comment on above: Performed By: #### H EMDF, PT, BMP3M, PHOS3, MG3, CK3 #### [place] [address] [address] [facility], [place] #### VD25H #### [facility] [address] [place] [address] Chloride molar conc 110 mmol/L High 98-107 [facility] Comment on above: Performed By: #### H EMDF, PT, BMP3M, PHOS3, MG3, CK3 #### [place] [address] [address] [facility], [place] #### VD25H #### [facility] [address] [place] [address] Potassium molar conc 4.7 mmol/L Normal 3.5-5.1 [facility] Comment on above: Performed By: #### H EMDF, PT, BMP3M, PHOS3, MG3, CK3 #### [place] [address] [address] [facility] [place] #### VD25H #### [facility] [address] [place] [address] Sodium molar conc 143 mmol/L Normal 135-145 [facility] Comment on above: Performed By: #### H EMDF, PT, BMP3M, PHOS3, MG3, CK3 #### [facility] [address] [place] [address] #### VD25H #### [facility] [facility] [address] [place] [address] CKon 07-09-2018 CK enzyme act/vol 1451 U/L High 30-170 [facility] Comment on above: Performed By: #### H EMDF, PT, BMP3M, PHOS3, MG3, CK3 #### [facility] [address] [place] [address] #### VD25H #### [facility] [address] [place] [address] CK enzyme act/vol 3832 U/L High 30-170 [facility] Comment on above: Performed By: #### H EMDF, PT, BMP3M, PHOS3, MG3, CK3 #### [facility] [address] [place] [address] #### VD25H #### [facility] [address] [place] [address] CR Chest 1 View Frontalon CR Chest 1 View Frontal Patient Name: KATHYA FELDER Diagnostic Radiology Exam Date/Time 07/09/2018 06:21:56 EDT Exam CR Chest 1 View Frontal Ordering Physician MD NATE, [facility] Accession Number [id number] CPT4 Codes 35177 () Reason For Exam dyspnea Report CHEST [...] Transcribed Date and Time: 07/09/2018 6:39 Normal [facility] CR Chest Portableon 07-10-19 CR Chest Portable Patient Name: KATHYA HOOPER Diagnostic Radiology Exam Date/Time 07/09/2018 11:34:09 EDT Exam CR Chest Portable Ordering Physician [id number] JOHNSON Accession Number [id number] CPT4 Codes 09511 () Reason For Exam Central line placement [...] JOHN Transcribed Date and Time: 07/09/2018 1:01 Normal [facility] CR Chest Portable Patient Name: KATHYA HOOPER Diagnostic Radiology Exam Date/Time 07/09/2018 03:05:20 EDT Exam CR Chest Portable Ordering Physician MD NATE, NICOLE HOLLEY Accession Number [id number] CPT4 Codes 30287 () Reason For Exam intubation Report CHEST PORTABLE: Indication: Inpatient; intubation Views: Portable frontal Comparison: 07/08/2018 at 22:16 Time: 07/09/2018 at 2:46 FINDINGS: Interval intubation with endotracheal tube approximately 4.2 cm above the level of the alma. An enteric tube has been placed with distal tip below the hemidiaphragm but excluded from [id number]. Cardiac monitoring wires and leads are present. [...] R Transcribed Date and Time: 07/09/2018 3:10 Normal [facility] CR Chest Portable Patient Name: KATHYA HOOPER Diagnostic Radiology Exam Date/Time 07/08/2018 22:31:57 EDT Exam CR Chest Portable Ordering Physician MD NATE, NICOLE HOLLEY Accession Number [id number] CPT4 Codes 49330 () Reason For Exam cough Report CHEST [...] Transcribed Date and Time: 07/08/2018 11:23 Normal [facility] CTA Head/Neck w/ + w/o contr birgit 07-09-2018 CTA Head/Neck w/ + w/o contrast Patient Name: KATHYA HOOPER CT Exam Date/Time 07/09/2018 04:42:10 EDT Exam CTA Head/Neck w/ + w/o contrast Ordering Physician MD OREILLY ALEKSANDAR Accession Number [id number] CPT4 Codes Q9967 (CT ISOVUE 370MG/[id number]), 28730 (), 91934 () Reason For Exam CERVICAL SPINE FRACTURE Report CLINICAL INFORMATION: C-spine fracture after trauma. Vascular injury suspected. CTA HEAD: After 75 ml Isovue IV contrast, 0.3 mm axial cuts were obtained through the brain. Coronal and sagittal reconstructions are reviewed. In addition, 3D images of the tan[place] of [place] were constructed by me and reviewed simultaneously on the separate [employer] Workstation. The examination is compared to a [...] 2018 at 0735 hrs. Report Dictated on .comDS Final Dictated: 07/09/2018 9:50 am Dictating Physician: MD JERNIGAN JEFFREY Signed Date and Time: 07/09/2018 10:26 am Signed by: MD JERNIGAN JEFFREY Transcribed Date and Time: 07/09/2018 9:50 Normal [facility] Hemogram w/ Autodiffon 07-09 Abs Baso Cnt 0.1 10*3/uL Normal 0.0-0.2 [facility] Comment on above: Performed By: #### H EMDF, PT, BMP3M, PHOS3, MG3, CK3 #### [address] #### VD25H #### [facility] [address] [place] [address] Abs Neutrophile Cnt 13.3 10*3/uL High 1.8-7.0 [facility] Comment on above: Performed By: #### H EMDF, PT, BMP3M, PHOS3, MG3, CK3 #### [address] #### VD25H #### [facility] [address] [place] [address] Basophils/100 WBC (Bld) 0.3 % Normal 0.0-2.0 [facility] Comment on above: Performed By: #### H EMDF, PT, BMP3M, PHOS3, MG3, CK3 #### [address] #### VD25H #### [facility] [address] [place] [address] Eosinophils #/vol (Bld) 0.0 10*3/uL Normal 0.0-0.5 [facility] Comment on above: Performed By: #### H EMDF, PT, BMP3M, PHOS3, MG3, CK3 #### [facility] [address] [place], [place] #### VD25H #### [facility] [address] [place] [address] Eosinophils/100 WBC (Bld) 0.0 % Low 1.0-6.0 [facility] Comment on above: Performed By: #### H EMDF, PT, BMP3M, PHOS3, MG3, CK3 #### [address] #### VD25H #### [facility] [address] [place] [address] Erythrocyte distribution width Ratio (RBC) 13.7 % Normal 11.5-14.5 [facility] Comment on above: Performed By: #### H EMDF, PT, BMP3M, PHOS3, MG3, CK3 #### [address] #### VD25H #### [facility] [address] [place] [address] Granulocytes/100 WBC (Bld) 86.5 % High 40.0-80.0 [facility] Comment on above: Performed By: #### H EMDF, PT, BMP3M, PHOS3, MG3, CK3 #### [address] #### VD25H #### [facility] [address] [place] [address] Hematocrit Volume Fraction (Bld) 45.1 % Normal 40.0-52.0 [facility] Comment on above: Performed By: #### H EMDF, PT, BMP3M, PHOS3, MG3, CK3 #### [address] #### VD25H #### [facility] [address] [place] [address] Hemoglobin mass conc (Bld) 15.6 g/dL Normal 13.0-18.0 [facility] Comment on above: Performed By: #### H EMDF, PT, BMP3M, PHOS3, MG3, CK3 #### [address] #### VD25H #### [facility] [address] [place] [address] Lymphocytes #/vol (Bld) 0.8 10*3/uL Low 1.0-4.3 [facility] Comment on above: Performed By: #### H EMDF, PT, BMP3M, PHOS3, MG3, CK3 #### [address] #### VD25H #### [place] [address] [place] [address] Lymphocytes/100 WBC (Bld) 5.5 % Low 20.0-40.0 [facility] Comment on above: Performed By: #### H EMDF, PT, BMP3M, PHOS3, MG3, CK3 #### [address] #### VD25H #### [facility] [address] [place] [address] MCH Entitic mass (RBC) 29.9 pg Normal 26.0-34.0 [facility] Comment on above: Performed By: #### H EMDF, PT, BMP3M, PHOS3, MG3, CK3 #### [address] #### VD25H #### [facility] [address] [place] [address] MCHC mass conc (RBC) 34.5 % Normal 32.0-36.0 [facility] Comment on above: Performed By: #### H EMDF, PT, BMP3M, PHOS3, MG3, CK3 #### [address] #### VD25H #### [facility] [address] [place] [address] MCV Entitic volume (RBC) 86.7 fL Normal 80.0-98.0 [facility] Comment on above: Performed By: #### H EMDF, PT, BMP3M, PHOS3, MG3, CK3 #### [address] #### VD25H #### [facility] [address] [place] [address] Monocytes #/vol (Bld) 1.2 10*3/uL High 0.0-0.8 [facility] Comment on above: Performed By: #### H EMDF, PT, BMP3M, PHOS3, MG3, CK3 #### [address] #### VD25H #### [place] [address] [place] [address] Monocytes/100 WBC (Bld) 7.7 % Normal 2.0-10.0 [facility] Comment on above: Performed By: #### H EMDF, PT, BMP3M, PHOS3, MG3, CK3 #### [address] #### VD25H #### [facility] [address] [place] [address] Platelet mean volume Entitic volume (Bld) 8.1 fL Normal 7.4-10.4 [facility] Comment on above: Performed By: #### H EMDF, PT, BMP3M, PHOS3, MG3, CK3 #### [address] #### VD25H #### [facility] [address] [place] [address] Platelets #/vol (Bld) 197 10*3/uL Normal 140-440 [facility] Comment on above: Performed By: #### H EMDF, PT, BMP3M, PHOS3, MG3, CK3 #### [address] #### VD25H #### [facility] [address] [place] [address] RBC #/vol (Bld) 5.20 10*6/uL Normal 4.40-5.90 [facility] [employer] [facility] Comment on above: Performed By: #### H EMDF, PT, BMP3M, PHOS3, MG3, CK3 #### [email or web address] [facility] [address] [place], [place] #### VD25H #### [email or web address] [facility] [address] [place] [address] WBC #/vol (Bld) 15.4 10*3/uL High 3.6-10.7 [facility] [employer] [facility] Comment on above: Performed By: #### H EMDF, PT, BMP3M, PHOS3, MG3, CK3 #### [email or web address] [facility] [address] [place] [address] #### VD25H #### [facility] [place] [address] MRI Spine Cervical w/o Contr birgit 07-09-2018 MRI Spine Cervical w/o Contrast Patient Name: KATHYA HOOPRE MRI Exam Date/Time 07/09/2018 00:44:49 EDT Exam MRI Spine Cervical w/o Contrast Ordering Physician MD CHEYENNE, BRITTANY BERRY Accession Number [id number] CPT4 Codes 83046 () Reason For Exam CERVICAL SPINE FRACTURE [...] Transcribed Date and Time: 07/09/2018 7:45 Normal [facility] Magnesiumon 07-09-2018 Magnesium mass conc 2.2 mg/dL Normal 1.6-2.3 [facility] Comment on above: Performed By: #### H EMDF, PT, BMP3M, PHOS3, MG3, CK3 #### [facility] [address] [place] [address] #### VD25H #### [facility] [address] [place] [address] Phosphoruson 07-09-2018 Phosphate mass conc 4.0 mg/dL Normal 2.5-4.5 [facility] Comment on above: Performed By: #### H EMDF, PT, BMP3M, PHOS3, MG3, CK3 #### [facility] [address] [place] [address] #### VD25H #### [facility] [address] [place] [address] Prothrombin Timeon 9 INR Coag RelTime (PPP) 1.0 Normal 0.9-1.1 [facility] Comment on above: Result Comment: Yefri [...] PT, BMP3M, PHOS3, MG3, CK3 #### [address] #### VD25H #### [facility] [address] [place] [address] Prothrombin time (PT) Coag time (PPP) 10.3 s Normal 9.0-12.0 [facility] Comment on above: Result Comment: . Performed By: #### H EMDF, PT, BMP3M, PHOS3, MG3, CK3 #### [address] [address] #### VD25H #### [facility] [address] [place] [place] [address] TS GELon 07-09-2018 TS GEL ABO Group: O Rh, Gel: POS Antibody Screen Gel: NEG Normal [facility] Comment on above: Performed By: #### T SGL #### [address] [address] Vit D 25-OH, Totalon 019 Vit D 25-OH, Total 23 ng/mL Low 30-100 [facility] Comment on above: Result Comment: Ther apy is based on measurement of Total 25-OHD with the following classification levels: Less than 20 ng/mL: Indicative of Vit D deficiency 20-30 ng/mL: Suggests Vit D insufficiency Optimal: Greater than or equal to 30 ng/mL Test performed by [employer] Competitive Immunoassay, measuring Total Vitamin D, not individual fractions. Performed By: #### H EMDF, PT, BMP3M, PHOS3, MG3, CK3 #### [facility] [email or web address] [address] [address] #### VD25H #### [email or web address] [address] [place] [address] Hematologyon 01-03-2003 Lymphocytes (Bld) [#/Vol] RECTUM, BIOPSY - BENIGN COLONIC MUCOSA WITH INTRAMUCOSAL LYMPHOID AGGREGATES. [facility] Otheron 01-03-2003 CONVERTED ELECTRONIC SIGNATURE BARBARA CASTILLO M.D., PATHOLOGIST (Electronic signature on file) Final Signed Out: 01/03/2003 15:09 [facility] CONVERTED ORDERING PROVIDER Ordering Provider: BENI VERA [facility] Culture, urine Bacteria identified Cx Nom (U) Culture exhibits no growth. [facility] Work Phone: Vital Signs Date Time Vital Sign Value Performing Clinician Facility 10-02-2023 13:56-0400 Diastolic blood pressure 62 mm[Hg] Fei Farooq MD Work Phone: [facility] 10-02-2023 13:56-0400 Heart rate 104 /min Fei Farooq MD Work Phone: [facility] 10-02-2023 13:56-0400 SaO2% (BldA) [Mass fraction] 94 % Fei Farooq MD Work Phone: [facility] 10-02-2023 13:56-0400 Systolic blood pressure 124 mm[Hg] Fei Farooq MD Work Phone: [facility] 10-02-2023 11:13-0400 Respiratory rate 16 /min Fei Farooq MD Work Phone: [facility] [employer] 10-02-2023 09:47-0400 Body mass index (BMI) [Ratio] 26.19 kg/m2 Fei Farooq MD Work Phone: [facility] 10-02-2023 09:47-0400 Body temperature 98.01 [degF] Fei Farooq MD Work Phone: [email or web address] 10-02-2023 09:47-0400 Body weight 92.53 kg Fei Farooq MD Work Phone: [email or web address] 05-20-2022 18:30-0500 Body mass index (BMI) [Ratio] 26.32 kg/m2 Abelardo Gombash DO Work Phone: [email or web address] 05-20-2022 18:30-0500 Body temperature 97.3 [degF] Abelardo Gombash DO Work Phone: [email or web address] 05-20-2022 18:30-0500 Body weight 92.99 kg Abelardo Gombash DO Work Phone: [email or web address] 05-20-2022 18:30-0500 Diastolic blood pressure 108 mm[Hg] Abelardo Gombash DO Work Phone: [email or web address] 05-20-2022 18:30-0500 Heart rate 100 /min Abelardo Gombash DO Work Phone: [email or web address] 05-20-2022 18:30-0500 Respiratory rate 14 /min Abelardo Gombash DO Work Phone: [email or web address] 05-20-2022 18:30-0500 SaO2% (BldA) [Mass fraction] 98 % Abelardo Gombash DO Work Phone: [email or web address] 05-20-2022 18:30-0500 Systolic blood pressure 125 mm[Hg] Abelardo Gombash DO Work Phone: [email or web address] 05-15-2021 09:40-0500 Body height 188 cm Timothy Micheal DO Work Phone: [employer] 05-15-2021 09:40-0500 Body mass index (BMI) [Ratio] 23.75 kg/m2 Timothy Micheal DO Work Phone: [employer] 05-15-2021 09:40-0500 Body weight 83.92 kg Timothy Micheal DO Work Phone: [employer] 05-15-2021 09:38-0500 Body temperature 97.59 [degF] Timothy Micheal DO Work Phone: [employer] 05-15-2021 09:38-0500 Diastolic blood pressure 76 mm[Hg] Timothy Micheal DO Work Phone: [employer] 05-15-2021 09:38-0500 Heart rate 102 /min Timothy Micheal DO Work Phone: [employer] 05-15-2021 09:38-0500 Respiratory rate 16 /min Timothy Micheal DO Work Phone: [employer] 05-15-2021 09:38-0500 SaO2% (BldA) [Mass fraction] 99 % Timothy [facility]al DO [facility] 05-15-2021 09:38-0500 Systolic blood pressure 115 mm[Hg] Timothy Micheal DO Work Phone: [facility] 03-24-2021 10:20-0500 Respiratory rate 18 /min Brady Nesheim DO Work Phone: [facility] 03-24-2021 10:20-0500 SaO2% (BldA) [Mass fraction] 94 % Brady Nesheim DO Work Phone: [facility] 03-24-2021 08:44-0500 Body temperature 97.7 [degF] Brady Nesheim DO Work Phone: [employer] 03-24-2021 08:44-0500 Diastolic blood pressure 55 mm[Hg] Brady Nesheim DO Work Phone: [facility] 03-24-2021 08:44-0500 Heart rate 85 /min Brady Nesheim DO Work Phone: [facility] 03-24-2021 08:44-0500 Systolic blood pressure 85 mm[Hg] Brady Nesheim DO Work Phone: [facility] 03-20-2021 13:41-0500 Body height 188 cm Brady Nesheim DO Work Phone: [facility] 03-20-2021 11:16-0500 Body mass index (BMI) [Ratio] 23.86 kg/m2 Brady Nesheim DO Work Phone: [facility] 03-20-2021 11:16-0500 Body weight 84.32 kg Brady Nesheim DO Work Phone: [facility] Comment on above: earlene Ingram RN (bed scal e measurement) on 03/20/2021 03-18-2021 15:02-0500 Body temperature 99.5 [degF] Boo Castro MD Work Phone: [facility] 03-18-2021 15:02-0500 Diastolic blood pressure 82 mm[Hg] Boo Castro MD Work Phone: [facility] 03-18-2021 15:02-0500 Heart rate 111 /min Boo Castro MD Work Phone: [facility] 03-18-2021 15:02-0500 Respiratory rate 18 /min Boo Castro MD Work Phone: [facility] 03-18-2021 15:02-0500 SaO2% (BldA) [Mass fraction] 93 % Boo Castro MD Work Phone: [facility] 03-18-2021 15:02-0500 Systolic blood pressure 111 mm[Hg] Boo Castro MD Work Phone: [facility] 10-30-2020 17:10-0400 Diastolic blood pressure 82 mm[Hg] Bethany Clemons MD Work Phone: [facility] Work Phone: 10-30-2020 17:10-0400 Heart rate 110 /min Bethany Clemons MD Work Phone: [facility] Work Phone: 10-30-2020 17:10-0400 Respiratory rate 16 /min Bethany Clemons MD Work Phone: [facility] Work Phone: 10-30-2020 17:10-0400 SaO2% (BldA) [Mass fraction] 99 % Bethany Clemons MD Work Phone: [facility] Work Phone: 10-30-2020 17:10-0400 Systolic blood pressure 125 mm[Hg] Bethany Clemons MD Work Phone: [facility] Work Phone: 10-30-2020 13:02-0400 Body mass index (BMI) [Ratio] 24.65 kg/m2 Bethany Clemons MD Work Phone: [facility] Work Phone: 10-30-2020 13:02-0400 Body temperature 96.91 [degF] Bethany Clemons MD Work Phone: [employer] Work Phone: 10-30-2020 13:02-0400 Body weight 87.09 kg Bethany Clemons MD Work Phone: [employer] Work Phone: 09-22-2020 05:01-0400 Diastolic blood pressure 76 mm[Hg] Elizabeth Burgess MD Work Phone: [employer] Work Phone: 09-22-2020 05:01-0400 Systolic blood pressure 114 mm[Hg] Elizabeth Burgess MD Work Phone: [employer] Work Phone: 09-22-2020 00:26-0400 Body temperature 97.81 [degF] Elizabeth Burgess MD Work Phone: [facility] Work Phone: 09-22-2020 00:26-0400 Heart rate 86 /min Elizabeth Burgess MD Work Phone: [facility] Work Phone: 09-22-2020 00:26-0400 Respiratory rate 16 /min Elizabeth Burgess MD Work Phone: [facility] Work Phone: 09-22-2020 00:26-0400 SaO2% (BldA) [Mass fraction] 98 % Elizabeth Burgess MD Work Phone: [facility] Work Phone: 06-26-2020 21:50-0500 BP Diastolic 71 mm[Hg] Abelardo BARNETT Work Phone: 06-26-2020 21:50-0500 BP Systolic 118 mm[Hg] Abelardo QUIROGAA Work Phone: 06-26-2020 21:50-0500 Pulse (Heart Rate) 84 /min Abelardo QUIROGAA Work Phone: 06-26-2020 21:50-0500 Pulse Oximetry 96 % Abelardo BARNETT Work Phone: 06-26-2020 21:50-0500 Respiratory Rate 16 /min Abelardo BARNETT Work Phone: 06-26-2020 17:58-0500 BMI (Body Mass Index) 25.16 kg/m2 Abelardo BARNETT Work Phone: 06-26-2020 17:58-0500 Body Temperature 97.39 [degF] Abelardo BARNETT Work Phone: 06-26-2020 17:58-0500 Body weight 88.91 kg Abelardo BARNETT Work Phone: 06-26-2020 17:58-0500 Height 188 cm Abelardo BARNETT Work Phone: 05-16-2019 23:00-0500 Diastolic blood pressure 68 mm[Hg] Elizabeth Burgess MD Work Phone: [facility] Work Phone: 05-16-2019 23:00-0500 Heart rate 95 /min Elizabeth Burgess MD Work Phone: [facility] Work Phone: 05-16-2019 23:00-0500 Respiratory rate 18 /min Elizabeth Burgess MD Work Phone: [facility] Work Phone: 05-16-2019 23:00-0500 SaO2% (BldA) [Mass fraction] 100 % Elizabeth Burgess MD Work Phone: [facility] Work Phone: 05-16-2019 23:00-0500 Systolic blood pressure 115 mm[Hg] Elizabeth Burgess MD Work Phone: [facility] Work Phone: 05-16-2019 19:57-0500 Body temperature 98.49 [degF] Elizabeth Burgess MD Work Phone: [facility] Work Phone: NEGATED: Highlighted [id number] 14:34-0500 BMI (Body Mass Index) 22.16 kg/m2 Ana Diesch [employer] [facility] Work Phone: NEGATED: Highlighted [id number] 14:34-0500 Body weight 78.02 kg Ana Diesch [employer] [facility] Work Phone: NEGATED: Highlighted [id number] 14:34-0500 Body weight 78 kg Ana Diesch [employer] [facility] Work Phone: NEGATED: Highlighted [id number] 14:34-0500 BP Diastolic 66 mm[Hg] Ana Diesch [employer] [facility] Work Phone: NEGATED: Highlighted [id number] 14:34-0500 BP Systolic 102 mm[Hg] Ana Diesch [employer] [facility] Work Phone: NEGATED: Highlighted [id number] 14:34-0500 Height 187.96 cm Ana Diesch [employer] [facility] Work Phone: NEGATED: Highlighted [id number] 14:34-0500 Height 188 cm Ana Diesch [employer] [facility] Work Phone: NEGATED: Highlighted [id number] 14:34-0500 Pulse (Heart Rate) 104 /min Ana Diesch [employer] [facility] Work Phone: Encounters Encounter Date Encounter Type Care Provider Facility Start: 11-11-2024 ambulatory Renard Burgos OLS Faci lity:[facility] Start: 11-04-2024 ambulatory Renard Burgos OLS Faci lity:[facility] Start: 10-28-2024 ambulatory Renard Burgos OLS Faci lity:[facility] Start: 10-21-2024 ambulatory Renard Burgos OLS Faci lity:[facility] Start: 10-21-2024 Registered Referred Renard Burgos - [facility] Start: 10-14-2024 ambulatory Renard GARLAND Faci lity:[facility] Start: 10-14-2024 Registered Referred Renard Burgos - [facility] Start: 10-07-2024 ambulatory Renard GRALAND Faci lity:[facility] Start: 10-07-2024 Registered Referred Renard Burgos - [facility] Start: 09-30-2024 ambulatory Renard GARLAND Faci lity:[facility] Start: 09-30-2024 Registered Referred Renard Burgos - [facility] Start: 09-24-2024 ambulatory Renard GARLAND Faci lity:[facility] Start: 09-24-2024 Registered Referred Renard Burgos - [facility] Start: 09-16-2024 End: 09-16-2024 ambulatory Renard GARLAND -[facility] Start: 09-16-2024 End: 09-16-2024 Departed Referred Renard Burgos -[facility] Start: 09-16-2024 Registered Referred Renard Burgos - [facility] Start: 09-16-2024 End: 09-16-2024 ambulatory Renard GARLAND Facility:[facility] Start: 09-11-2024 End: 09-11-2024 ambulatory Renard GARLAND [facility] Work Phone: Start: 09-11-2024 End: 09-11-2024 Departed Referred Renard Burgos -[facility] Start: 09-11-2024 Registered Referred Peter Katsaros - [facility] Start: 09-11-2024 End: 09-11-2024 ambulatory Renard GARLAND Facility:[facility] Start: 09-09-2024 End: 09-09-2024 ambulatory Renard GARLAND [facility] Work Phone: Start: 09-09-2024 End: 09-09-2024 Departed Referred Renard Burgos -[facility] Start: 09-09-2024 Registered Referred Renard Burgos - [facility] Start: 09-09-2024 End: 09-09-2024 ambulatory Renard GARLAND Facility:[facility] Start: 09-02-2024 End: 09-02-2024 ambulatory Renard GARLAND [facility] Work Phone: Start: 09-02-2024 End: 09-02-2024 Departed Referred Renard Burgos -[facility] Start: 09-02-2024 Registered Referred Renard Burgos - [facility] Start: 09-02-2024 End: 09-02-2024 ambulatory Renard GARLAND Facility:[facility] Start: 08-26-2024 End: 08-26-2024 ambulatory Renard GARLAND [facility] Work Phone: Start: 08-26-2024 End: 08-26-2024 Departed Referred Renard Burgos -[facility] Start: 08-26-2024 Registered Referred Renard Burgos - [facility] Start: 08-26-2024 End: 08-26-2024 ambulatory Renard GARLAND Facility:[facility] Start: 08-23-2024 End: 08-23-2024 Departed Referred Renard Burgos -[facility] Start: 08-23-2024 Registered Referred Renard Burgos - [facility] Start: 08-23-2024 End: 08-23-2024 ambulatory Renard GARLAND Facility:[facility] Start: 08-19-2024 End: 08-19-2024 ambulatory Renard GARLAND [facility] Work Phone: Start: 08-19-2024 End: 08-19-2024 Departed Referred Renard Burgos -[facility] Start: 08-19-2024 Registered Referred Renard Burgos - [facility] Start: 08-19-2024 End: 08-19-2024 ambulatory Renard GARLAND Facility:[facility] Start: 08-12-2024 End: 08-12-2024 ambulatory Renard GARLAND [facility] Work Phone: Start: 08-12-2024 End: 08-12-2024 Departed Referred Renard Burgos -[facility] Start: 08-12-2024 Registered Referred Renard Burgos - [facility] Start: 08-12-2024 End: 08-12-2024 ambulatory Renard GARLAND Facility:[facility] Start: 08-05-2024 End: 08-05-2024 Departed Referred Renard Burgos -[facility] Start: 08-05-2024 Registered Referred Renard Burgos - [facility] Start: 08-05-2024 End: 08-05-2024 ambulatory Renard GARLAND Facility:[facility] Start: 07-29-2024 End: 07-29-2024 ambulatory Renard GARLAND [facility] Work Phone: Start: 07-29-2024 End: 07-29-2024 Departed Referred Renard Burgos -[facility] Start: 07-29-2024 Registered Referred Renard Burgos - [facility] Start: 07-29-2024 End: 07-29-2024 ambulatory Renard GARLAND Facility:[facility] Start: 07-22-2024 End: 07-22-2024 ambulatory Renard GARLAND [facility] Work Phone: Start: 07-22-2024 End: 07-22-2024 Departed Referred Renard Burgos -[facility] Start: 07-22-2024 Registered Referred Renard Burgos - [facility] Start: 07-22-2024 End: 07-22-2024 ambulatory Renard GARLAND Facility:[facility] Start: 07-16-2024 End: 07-16-2024 ambulatory Renard GARLAND [facility] Work Phone: Start: 07-16-2024 End: 07-16-2024 Departed Referred Renard Burgos -[facility] Start: 07-16-2024 Registered Referred Renard Burgos - [facility] Start: 07-15-2024 End: 07-16-2024 ambulatory Renard GARLAND [facility] Work Phone: Start: 07-15-2024 End: 07-15-2024 Departed Referred Renard Burgos -[facility] Start: 07-15-2024 Registered Referred Renard Burgos - [facility] Start: 07-15-2024 End: 07-15-2024 ambulatory Renard GARLAND Facility:[facility] Start: 07-08-2024 End: 07-08-2024 ambulatory Renard Shellierustam GARLAND [facility] Work Phone: Start: 07-08-2024 End: 07-08-2024 Departed Referred Renard Burgos -[facility] Start: 07-08-2024 Registered Referred Renard Burgos - [facility] Start: 07-08-2024 End: 07-08-2024 ambulatory Renard GARLAND Facility:[facility] Start: 07-01-2024 End: 07-01-2024 ambulatory Renard GARLAND [facility] Work Phone: Start: 07-01-2024 End: 07-01-2024 Departed Referred Renard Burgos -[facility] Start: 07-01-2024 Registered Referred Renard Burgos - [facility] Start: 07-01-2024 End: 07-01-2024 ambulatory Renard GARLAND Facility:[facility] Start: 06-27-2024 End: 06-27-2024 ambulatory Renard GARLAND [facility] Work Phone: Start: 06-27-2024 End: 06-27-2024 Departed Referred Renard Burgos -[facility] Start: 06-27-2024 Registered Referred Renard Burgos - [facility] Start: 06-27-2024 End: 06-27-2024 ambulatory Renard GARLAND Facility:[facility] Start: 06-24-2024 End: 06-24-2024 Subsequent hospital visit by physician Rashaad Pink NP Work Phone: [facility] Imaging Comment on above: Chronic cough Start: 06-24-2024 End: 06-24-2024 ambulatory RASHAAD SMITH [facility] Start: 06-24-2024 End: 06-24-2024 Departed Referred Renard Burgos -[facility] Start: 06-24-2024 Registered Referred Renard Burgos - [facility] Start: 06-24-2024 End: 06-24-2024 ambulatory Renard GARLAND Facility:[facility] Start: 06-17-2024 End: 06-17-2024 ambulatory Renard Shellierustam GILL [facility] Work Phone: Start: 06-17-2024 End: 06-17-2024 Departed Referred Renard Burgos -[facility] Start: 06-17-2024 Registered Referred Renard Burgos - [facility] Start: 06-17-2024 End: 06-17-2024 ambulatory Renard GARLAND Facility:[facility] Start: 06-12-2024 End: 09-11-2024 Transcribe Orders Rashaad Pink NP Work Phone: [facility] Central Scheduling Comment on above: Chronic cough (Prima ry Dx) Start: 06-10-2024 End: 06-10-2024 ambulatory Renard GARLAND [facility] Work Phone: Start: 06-10-2024 End: 06-10-2024 Departed Referred Renard Burgos -[facility] Start: 06-10-2024 Registered Referred Renard Pink [facility] Start: 06-10-2024 End: 06-10-2024 ambulatory Renard GARLAND Facility:[facility] Start: 06-07-2024 End: 06-07-2024 ambulatory Renard GARLAND [facility] Work Phone: Start: 06-07-2024 End: 06-07-2024 Departed Referred Renard Burgos -[facility] Start: 06-07-2024 Registered Referred Renard Burgos - [facility] Start: 06-07-2024 End: 06-07-2024 ambulatory Renard GARLAND Facility:[facility] Start: 06-03-2024 End: 06-03-2024 ambulatory Renard GARLAND [facility] Work Phone: Start: 06-03-2024 End: 06-03-2024 Departed Referred Renard Burgos -[facility] Start: 06-03-2024 End: 06-03-2024 ambulatory Renard GARLAND Facility:[facility] Start: 05-27-2024 End: 05-27-2024 Departed Referred Renard Burgos -[facility] Start: 05-27-2024 End: 05-27-2024 ambulatory Renard GARLAND Facility:[facility] Start: 05-20-2024 End: 05-20-2024 Departed Referred Renard Burgos -[facility] Start: 05-20-2024 End: 05-20-2024 ambulatory Renard GARLAND Facility:[facility] Start: 05-13-2024 End: 05-13-2024 Departed Referred Renard Burgos -[facility] Start: 05-13-2024 End: 05-13-2024 ambulatory Renard GARLAND Facility:[facility] Start: 05-06-2024 End: 05-06-2024 Departed Referred Renard Burgos -[facility] Start: 05-06-2024 End: 05-06-2024 ambulatory Renard GARLAND Facility:[facility] Start: 05-03-2024 End: 05-03-2024 Telephone encounter Renard Burgos Work Phone: [facility] Clinical Communication Comment on above: Other Start: 04-29-2024 End: 04-29-2024 Departed Referred Renard Burgos -[facility] Start: 04-29-2024 End: 04-29-2024 ambulatory Renard GARLAND Facility:[facility] Start: 04-22-2024 End: 04-22-2024 Departed Referred Renard Burgos -[facility] Start: 04-22-2024 End: 04-22-2024 ambulatory Renard Burgos OLS Facility:[facility] Start: 04-15-2024 End: 04-15-2024 Departed Referred Renard Burgos -[facility] Start: 04-15-2024 End: 04-15-2024 ambulatory Renard Burgos OLS Facility:[facility] Start: 04-08-2024 ambulatory Renard Burgos OLS Faci lity:[facility] Start: 04-08-2024 Registered Referred Renard Burgos - [facility] Start: 04-01-2024 ambulatory Renard Burgos OLS Faci lity:[facility] Start: 04-01-2024 Registered Referred Renard Burgos - [facility] Start: 03-25-2024 End: 03-25-2024 Departed Referred Renard Burgos -[facility] Start: 03-25-2024 End: 03-25-2024 ambulatory Renard GARLAND Facility:[facility] Start: 03-18-2024 End: 03-18-2024 Departed Referred Renard Burgos -[facility] Start: 03-18-2024 End: 03-18-2024 ambulatory Renard Burgos OLS Facility:[facility] Start: 03-11-2024 End: 03-11-2024 Departed Referred Renard Burgos -[facility] Start: 03-11-2024 End: 03-11-2024 ambulatory Renard Burgos OLS Facility:[facility] Start: 03-04-2024 End: 03-04-2024 ambulatory Peter Katsaros OLS Facility:[facility] Start: 02-26-2024 End: 02-26-2024 ambulatory Renard Katsaros OLS Facility:[facility] Start: 02-23-2024 End: 02-23-2024 ambulatory Renard Katsaros OLS Facility:[facility] Start: 02-19-2024 End: 02-19-2024 ambulatory Renard Katsaros OLS Facility:[facility] Start: 02-12-2024 End: 02-12-2024 ambulatory Renard Katsaros OLS Facility:[facility] Start: 02-05-2024 End: 02-05-2024 ambulatory Renard Katsaros OLS Facility:[facility] Start: 01-29-2024 End: 01-29-2024 ambulatory Renard Katsaros OLS Facility:[facility] Start: 01-22-2024 End: 01-22-2024 ambulatory Renard Katsaros OLS Facility:[facility] Start: 01-15-2024 ambulatory Renard Katsaros OLS Faci lity:[facility] Start: 01-08-2024 End: 01-08-2024 ambulatory Renard Katsaros OLS Facility:[facility] Start: 01-02-2024 ambulatory Renard Katsaros OLS Faci lity:[facility] Start: 12-25-2023 ambulatory Renard Katsaros OLS Faci lity:[facility] Start: 12-18-2023 End: 12-18-2023 ambulatory Renard Katsaros OLS Facility:[facility] Start: 12-11-2023 End: 12-11-2023 ambulatory Renard Katsaros OLS Facility:[facility] Start: 12-04-2023 End: 12-04-2023 ambulatory Renard Katsaros OLS Facility:[facility] Start: 11-27-2023 End: 11-27-2023 ambulatory Renard Katsaros OLS Facility:[facility] Start: 11-22-2023 End: 11-22-2023 ambulatory RENARD BURGOS [facility] Start: 11-22-2023 End: 11-22-2023 Subsequent hospital visit by physician Renard Burgos Work Phone: [facility] X-ray Imaging Comment on above: Dysphagia, oropharyn geal phase; Feeding difficulties Start: 11-20-2023 End: 11-20-2023 ambulatory Renard Burgos OLS Facility:[facility] Start: 10-16-2023 End: 01-15-2024 Transcribe Orders Renard Burgos Work Phone: [facility] Scheduling Comment on above: Dysphagia, oropharyn geal phase (Primary Dx); Feeding difficulties Start: 10-02-2023 End: 10-02-2023 Emergency department patient visit Fei Farooq MD Work Phone: [facility] ED Comment on above: Dyspnea, unspecified type (Primary Dx) Start: 08-07-2023 Registered Referred [facility] Start: 07-31-2023 End: 07-31-2023 ambulatory [facility] Work Phone: Start: 07-31-2023 End: 07-31-2023 Departed Referred [facility] [employer] Start: 07-31-2023 Registered Referred [facility] Start: 07-24-2023 End: 07-24-2023 ambulatory [facility] Work Phone: Start: 07-24-2023 End: 07-24-2023 Departed Referred [facility] Start: 07-17-2023 End: 07-17-2023 ambulatory [facility] Work Phone: Start: 07-17-2023 End: 07-17-2023 Departed Referred [facility] Start: 07-17-2023 [facility] Start: 07-10-2023 End: 07-10-2023 ambulatory [facility] Work Phone: Start: 07-10-2023 End: 07-10-2023 Departed Referred [facility] [facility] Start: 07-10-2023 Registered Referred [facility] Start: 07-03-2023 End: 07-03-2023 ambulatory [facility] Work Phone: Start: 07-03-2023 End: 07-03-2023 [facility] Start: 07-03-2023 Registered Referred [facility] Start: 06-26-2023 [facility] Start: 06-19-2023 End: 06-19-2023 ambulatory [facility] Work Phone: Start: 06-19-2023 End: 06-19-2023 [facility] Start: 06-19-2023 [facility] Start: 06-12-2023 End: 06-12-2023 ambulatory [facility] Work Phone: Start: 06-12-2023 End: 06-12-2023 [facility] Start: 06-12-2023 [facility] Start: 06-05-2023 End: 06-05-2023 ambulatory [facility] Work Phone: Start: 06-05-2023 End: 06-05-2023 [facility] Start: 06-05-2023 Registered Referred [facility] Start: 05-29-2023 End: 05-29-2023 [facility] Start: 05-29-2023 Registered Referred [facility] Start: 05-22-2023 End: 05-22-2023 ambulatory [facility] Work Phone: Start: 05-22-2023 End: 05-22-2023 [facility] Start: 05-22-2023 [facility] Start: 05-15-2023 End: 05-15-2023 Departed Referred [facility] Start: 05-15-2023 Registered Referred [facility] Start: 05-08-2023 End: 05-08-2023 ambulatory [facility] Work Phone: Start: 05-08-2023 End: 05-08-2023 Departed Referred [facility] Start: 04-17-2023 End: 04-17-2023 ambulatory [facility] Work Phone: Start: 04-17-2023 End: 04-17-2023 Departed Referred [facility] Start: 04-17-2023 Registered Referred [facility] Start: 04-14-2023 End: 04-14-2023 ambulatory [facility] Work Phone: Start: 04-14-2023 End: 04-14-2023 Departed Referred [facility] Start: 04-14-2023 Registered Referred [facility] Start: 04-10-2023 End: 04-10-2023 Departed Referred [facility] Start: 04-10-2023 Registered Referred [facility] Start: 04-03-2023 End: 04-03-2023 ambulatory [facility] Work Phone: Start: 04-03-2023 End: 04-03-2023 Departed Referred [facility] Start: 04-03-2023 Registered Referred [facility] Start: 03-27-2023 End: 03-27-2023 ambulatory [facility] Work Phone: Start: 03-27-2023 End: 03-27-2023 Departed Referred [facility] Start: 03-27-2023 Registered Referred [facility] Start: 03-20-2023 End: 03-20-2023 ambulatory [facility] Work Phone: Start: 03-20-2023 End: 03-20-2023 Departed Referred [facility] Start: 03-20-2023 [facility] Start: 03-16-2023 End: 03-16-2023 ambulatory [facility] Work Phone: Start: 03-16-2023 End: 03-16-2023 [facility] Start: 03-16-2023 [facility] Start: 03-13-2023 End: 03-13-2023 ambulatory [facility] Work Phone: Start: 03-13-2023 End: 03-13-2023 [facility] Start: 03-06-2023 End: 03-06-2023 ambulatory [facility] Work Phone: Start: 03-06-2023 End: 03-06-2023 [facility] Start: 03-06-2023 [facility] Start: 02-27-2023 End: 02-27-2023 ambulatory [facility] Work Phone: Start: 02-27-2023 End: 02-27-2023 [facility] Start: 02-20-2023 End: 02-20-2023 ambulatory [facility] Work Phone: Start: 02-20-2023 End: 02-20-2023 [facility] Start: 02-20-2023 [facility] Start: 02-13-2023 End: 02-13-2023 ambulatory [facility] Work Phone: Start: 02-13-2023 End: 02-13-2023 Departed Referred [facility] Start: 02-13-2023 Registered Referred [facility] Start: 02-06-2023 End: 02-06-2023 ambulatory [facility] Work Phone: Start: 02-06-2023 End: 02-06-2023 Departed Referred [facility] Start: 02-06-2023 Registered Referred [facility] Start: 01-30-2023 End: 01-30-2023 ambulatory [facility] Work Phone: Start: 01-30-2023 End: 01-30-2023 [facility] Start: 01-30-2023 Registered Referred [facility] Start: 01-23-2023 End: 01-23-2023 Departed Referred [facility] Start: 01-23-2023 Registered Referred [facility] Start: 01-16-2023 End: 01-16-2023 ambulatory [facility] Work Phone: Start: 01-16-2023 End: 01-16-2023 Departed Referred [facility] Start: 01-16-2023 Registered Referred [facility] Start: 01-09-2023 End: 01-09-2023 Departed Referred [facility] Start: 01-09-2023 Registered Referred [facility] Start: 01-03-2023 End: 01-03-2023 ambulatory [facility] Work Phone: Start: 01-03-2023 End: 01-03-2023 Departed Referred [facility] Start: 01-03-2023 Registered Referred [facility] Start: 12-26-2022 End: 12-26-2022 ambulatory [facility] Work Phone: Start: 12-26-2022 End: 12-26-2022 Departed Referred [facility] Start: 12-26-2022 Registered Referred [facility] Start: 12-19-2022 End: 12-19-2022 ambulatory [facility] Work Phone: Start: 12-19-2022 End: 12-19-2022 [facility] Start: 12-19-2022 [facility] Start: 12-12-2022 End: 12-12-2022 Departed [facility]erred [facility] [facility] Start: 12-12-2022 [facility] Start: 12-05-2022 End: 12-05-2022 ambulatory [facility] Work Phone: Start: 12-05-2022 End: 12-05-2022 [facility] Start: 12-05-2022 [facility] Start: 11-28-2022 End: 11-28-2022 ambulatory [facility] Work Phone: Start: 11-28-2022 End: 11-28-2022 Departed [facility] Start: 11-28-2022 [facility] Start: 11-21-2022 End: 11-21-2022 ambulatory [facility] Work Phone: Start: 11-21-2022 End: 11-21-2022 [facility] Start: 11-21-2022 [facility] Start: 11-14-2022 End: 11-14-2022 ambulatory [facility] Work Phone: Start: 11-14-2022 End: 11-14-2022 Departed Referred [facility] Start: 11-14-2022 Registered Referred [facility] Start: 11-07-2022 Registered Referred [facility] Start: 10-31-2022 End: 10-31-2022 ambulatory [facility] Work Phone: Start: 10-31-2022 End: 10-31-2022 Departed Referred [facility] Start: 10-31-2022 Registered Referred [facility] Start: 10-24-2022 End: 10-24-2022 ambulatory [facility] Work Phone: Start: 10-24-2022 End: 10-24-2022 [facility] Start: 10-24-2022 Registered Referred [facility] Start: 10-17-2022 End: 10-17-2022 Departed Referred [facility] Start: 10-17-2022 Registered Referred [facility] Start: 10-10-2022 End: 10-10-2022 ambulatory [facility] Work Phone: Start: 10-10-2022 End: 10-10-2022 Departed Referred [facility] Start: 10-10-2022 Registered Referred [facility] Start: 10-03-2022 End: 10-03-2022 ambulatory [facility] Work Phone: Start: 10-03-2022 End: 10-03-2022 Departed Referred [facility] Start: 09-19-2022 End: 09-19-2022 Departed Referred [facility] Start: 09-19-2022 Registered Ref[facility] Start: 09-12-2022 End: 09-12-2022 ambulatory [facility] Work Phone: Start: 09-12-2022 End: 09-12-2022 Departed Referred [facility] Start: 09-05-2022 End: 09-05-2022 Departed Referred [facility] Start: 09-05-2022 Registered Referred [facility] Start: 08-29-2022 End: 08-29-2022 Departed Referred [facility] Start: 08-29-2022 Registered Referred [facility] Start: 08-22-2022 End: 08-22-2022 ambulatory [facility] Work Phone: Start: 08-22-2022 End: 08-22-2022 Departed Referred [facility] Start: 08-22-2022 Registered Referred [facility] Start: 08-15-2022 End: 08-15-2022 ambulatory [facility] Work Phone: Start: 08-15-2022 End: 08-15-2022 Departed Referred [facility] Start: 08-15-2022 Registered Referred [facility] Start: 08-08-2022 End: 08-08-2022 Departed Referred [facility] Start: 08-08-2022 Registered Referred [facility] Start: 08-01-2022 End: 08-01-2022 ambulatory [facility] Work Phone: Start: 08-01-2022 End: 08-01-2022 [facility] Start: 08-01-2022 Registered [facility] Start: 07-25-2022 End: 07-25-2022 ambulatory [facility] Work Phone: Start: 07-25-2022 End: 07-25-2022 Departed Referred [facility] Start: 07-25-2022 Registered Referred [facility] Start: 07-19-2022 End: 07-19-2022 [facility] Start: 07-19-2022 Registered Referred [facility] Start: 07-18-2022 End: 07-18-2022 ambulatory [facility] Work Phone: Start: 07-18-2022 End: 07-18-2022 [facility] Start: 07-18-2022 Registered Referred [facility] Start: 07-11-2022 End: 07-11-2022 ambulatory [facility] Work Phone: Start: 07-11-2022 End: 07-11-2022 [facility] Start: 07-11-2022 Registered Referred [facility] Start: 07-04-2022 End: 07-04-2022 [facility] Start: 07-04-2022 Registered Referred [facility] Start: 06-27-2022 End: 06-27-2022 ambulatory [facility] Work Phone: Start: 06-27-2022 End: 06-27-2022 [facility] Start: 06-27-2022 [facility] Start: 06-20-2022 End: 06-20-2022 ambulatory [facility] Work Phone: Start: 06-20-2022 End: 06-20-2022 [facility] Start[facility] 06-20-2022 [facility] Start: 06-13-2022 End: 06-13-2022 ambulatory [facility] Work Phone: Start: 06-13-2022 End: 06-13-2022 [facility] Start: 06-13-2022 [facility] Start: 06-06-2022 End: 06-06-2022 [facility] Start: 06-06-2022 [facility] Start: 05-30-2022 End: 05-30-2022 ambulatory [facility] Work Phone: Start: 05-30-2022 End: 05-30-2022 [facility] Start: 05-23-2022 End: 05-23-2022 ambulatory [facility] Work Phone: Start: 05-23-2022 End: 05-23-2022 [facility] Start: 05-23-2022 [facility] Start: 05-20-2022 End: 05-20-2022 Emergency department patient visit Abelardo Rios DO Work Phone: [facility] Comment on above: Dislodged gastrostom y tube (Primary Dx) Start: 05-16-2022 End: 05-16-2022 [facility] Start: 05-16-2022 [facility] Start: 05-09-2022 End: 05-09-2022 ambulatory [facility] Work Phone: Start: 05-09-2022 End: 05-09-2022 Departed Referred [facility] Start: 05-09-2022 Registered Referred [facility] Start: 05-03-2022 End: 05-03-2022 ambulatory [facility] Work Phone: Start: 05-03-2022 End: 05-03-2022 [facility] Start: 05-03-2022 Registered Referred [facility] Start: 04-26-2022 End: 04-26-2022 [facility] Start: 04-26-2022 [facility] Start: 04-18-2022 End: 04-18-2022 ambulatory [facility] Work Phone: Start: 04-18-2022 End: 04-18-2022 [facility] Start: 04-18-2022 [facility] Start: 04-14-2022 End: 04-14-2022 ambulatory [facility] Work Phone: Start: 04-14-2022 End: 04-14-2022 [facility] Start: 04-14-2022 [facility] Start: 04-11-2022 End: 04-11-2022 ambulatory [facility] Work Phone: Start: 04-11-2022 End: 04-11-2022 [facility] Start: 04-11-2022 Registered Referred [facility] Start: 04-04-2022 End: 04-04-2022 ambulatory [facility] Work Phone: Start: 04-04-2022 End: 04-04-2022 [facility] Start: 04-04-2022 Registered Referred [facility] Start: 03-28-2022 End: 03-28-2022 ambulatory [facility] Work Phone: Start: 03-28-2022 End: 03-28-2022 Departed Referred [facility] Start: 03-28-2022 [facility] Start: 03-21-2022 End: 03-21-2022 ambulatory [facility] Work Phone: Start: 03-21-2022 End: 03-21-2022 [facility] Start: 03-21-2022 [facility] Start: 03-14-2022 End: 03-14-2022 [facility] Start: 03-14-2022 [facility] Start: 2022 End: 2022 ambulatory [facility] Work Phone: Start: 2022 End: 2022 [facility] Start: 2022 [facility] Start: 02-28-2022 End: 02-28-2022 [facility] Start: 02-28-2022 [facility] Start: 02-21-2022 End: 02-21-2022 ambulatory [facility] Work Phone: Start: 02-21-2022 End: 02-21-2022 [facility] Start: 02-21-2022 [facility] Start: 02-14-2022 End: 02-14-2022 ambulatory [facility] Work Phone: Start: 02-14-2022 End: 02-14-2022 Departed Referred [facility] Start: 02-14-2022 Registered Referred [facility] Start: 02-07-2022 End: 02-07-2022 ambulatory [facility] Work Phone: Start: 02-07-2022 End: 02-07-2022 Departed Referred [facility] Start: 02-07-2022 Registered Referred [facility] Start: 01-31-2022 End: 01-31-2022 ambulatory [facility] Work Phone: Start: 01-31-2022 End: 01-31-2022 [facility] Start: 01-31-2022 Registered [facility] Start: 01-24-2022 End: 01-24-2022 ambulatory [facility] Work Phone: Start: 01-24-2022 End: 01-24-2022 Departed Referred [facility] Start: 01-24-2022 Registered Referred [facility] Start: 01-17-2022 End: 01-17-2022 Departed Referred [facility] Start: 01-17-2022 Registered Referred [facility] Start: 01-10-2022 End: 01-10-2022 ambulatory [facility] Work Phone: Start: 01-10-2022 End: 01-10-2022 Departed Referred [facility] Start: 01-10-2022 Registered Referred [facility] Start: 01-04-2022 End: 01-04-2022 ambulatory [facility] Work Phone: Start: 01-04-2022 End: 01-04-2022 Departed Referred [facility] Start: 01-04-2022 Registered Referred [facility] Start: 12-27-2021 End: 12-27-2021 ambulatory [facility] Work Phone: Start: 12-27-2021 End: 12-27-2021 [facility] Start: 12-27-2021 [facility] Start: 12-20-2021 End: 12-20-2021 ambulatory [facility] Work Phone: Start: 12-20-2021 End: 12-20-2021 [facility] Start: 12-20-2021 [facility] Start: 12-13-2021 End: 12-13-2021 [facility] Start: 12-13-2021 Registered Referred [facility] Start: 12-06-2021 End: 12-06-2021 ambulatory [facility] Work Phone: Start: 12-06-2021 End: 12-06-2021 [facility] Start: 12-06-2021 Registered Referred [facility] Start: 11-29-2021 End: 11-29-2021 ambulatory [facility] Work Phone: Start: 11-29-2021 End: 11-29-2021 [facility] Start: 11-29-2021 [facility] Start: 11-22-2021 End: 11-22-2021 [facility] Start: 11-22-2021 Reg[facility] Start: 11-15-2021 End: 11-15-2021 Departed Referred [facility] Start: 11-15-2021 Registered Ref[facility] Start: 11-08-2021 End: 11-08-2021 Departed Referred [facility] Start: 10-25-2021 Registered Referred [facility] Start: 10-18-2021 Registered Referred [facility] Start: 10-11-2021 Registered Referred [facility] Start: 10-04-2021 Registered Ref[facility] Start: 09-28-2021 End: 09-28-2021 [facility] Start: 09-28-2021 Registered Ref[facility] Start: 09-20-2021 End: 09-20-2021 [facility] Start: 09-20-2021 Registered Referred [facility] Start: 09-13-2021 End: 09-13-2021 [facility] Start: 09-13-2021 Registered Referred [facility] Start: 09-06-2021 End: 09-06-2021 Departed Referred [facility] Start: 09-06-2021 Registered Referred [facility] Start: 08-30-2021 End: 08-30-2021 Departed Referred [facility] Start: 08-30-2021 Registered Referred [facility] Start: 08-23-2021 End: 08-23-2021 [facility] Start: 08-23-2021 Registered Referred [facility] Start: 08-18-2021 End: 08-18-2021 Departed Referred [facility] Start: 08-18-2021 [facility] Start: 08-16-2021 End: 08-16-2021 Departed Referred [facility] Start: 08-16-2021 Registered [facility] Start: 08-09-2021 End: 08-09-2021 Departed Referred [facility] Start: 08-02-2021 End: 08-02-2021 [facility] Start: 08-02-2021 Reg[facility] Start: 07-26-2021 End: 07-26-2021 [facility] Start: 07-26-2021 Registered Referred [facility] Start: 07-19-2021 End: 07-19-2021 Departed Referred [facility] Start: 07-19-2021 Registered [facility] Start: 07-12-2021 End: 07-12-2021 [facility] Start: 07-05-2021 End: 07-05-2021 Departed Referred [facility] Start: 07-05-2021 Registered [facility] Start: 06-28-2021 End: 06-28-2021 [facility] Start: 06-28-2021 Registered [facility] Start: 06-21-2021 End: 06-21-2021 [facility] Start: 06-21-2021 [facility] Start: 06-14-2021 Registered Referred [facility] Start: 06-07-2021 End: 06-07-2021 Departed Referred [facility] Start: 06-07-2021 Registered Referred [facility] Start: 05-31-2021 End: 05-31-2021 Departed Referred [facility] Start: 05-31-2021 Registered Referred [facility] Start: 05-24-2021 End: 05-24-2021 [facility] Start: 05-17-2021 Registered Referred [facility] Start: 05-15-2021 End: 05-15-2021 Emergency department patient visit Timothygregg Evanss DO Work Phone: [facility] Norma ALMANZAR Comment on above: PEG tube malfunction (HCC) (Primary Dx) Start: 05-14-2021 Registered Referred [facility] Start: 05-10-2021 Registered Referred [facility] Start: 05-03-2021 Registered Referred [facility] Start: 04-26-2021 Registered Referred [facility] Start: 04-19-2021 Registered [facility] Start: 04-12-2021 [facility] Start: 04-07-2021 Registered Referred [facility] Start: 03-19-2021 End: 03-24-2021 Evaluation and management of inpatient Brady Desai DO Work Phone: [facility] Comment on above: Respiratory syncytia l virus (RSV) (Primary Dx); Hypoxia Start: 03-18-2021 End: 03-18-2021 Emergency department patient visit Boo Castro MD Work Phone: [facility] [place] [facility] Comment on above: Respiratory syncytia l virus (RSV) (Primary Dx); Hypoxia Start: 10-30-2020 End: 10-30-2020 Emergency department patient visit Bethany Clemons MD Work Phone: [facility] Comment on above: Feeding tube dysfunc tion, initial encounter (Primary Dx) Start: 09-22-2020 End: 09-22-2020 Emergency department patient visit Elizabeth Burgess MD Work Phone: [facility] Comment on above: PEG tube malfunction (HCC) (Primary Dx) Start: 06-26-2020 End: 06-26-2020 Emergency department patient visit Abelardo Emery Gabriel Work Phone: [facility] Comment on above: PEG tube malfunction (HCC) (Primary Dx) Start: 05-22-2019 End: 05-22-2019 Patient encounter procedure Jarvis Kendall MD Work Phone: [facility] Work Phone: Start: 05-22-2019 End: 05-22-2019 Pt evaluation Jarvis Kendall MD Work Phone: [facility] Work Phone: Start: 05-16-2019 End: 05-16-2019 Emergency department patient visit Elizabeth Burgess MD Work Phone: [facility] ED Comment on above: Contusion of right h ip, initial encounter (Primary Dx) Start: 08-15-2018 Evaluation and management of inpatient UNKNOWN PROVIDER [facility] Start: 07-08-2018 Evaluation and management of inpatient JORDAN GEUBE [facility] Start: 01-02-2003 End: 01-02-2003 Patient encounter procedure Beni Shaista Work Phone: [facility] Start: 01-02-2003 Results Only Beni Smithdir Work Phone: [facility] Procedures Date Procedure Procedure Detail Performing Clinician Start: 07-16-2024 Vitamin D, 25-hydrox y measurement Renard GARLAND Comment on above: Vitamin D StatusDefi ciency: <20 ng/mL (50nmol/L)Insufficiency: 20-30 ng/mL (50-75 nmol/L)Sufficiency: 30-100 ng/mL (75-250 nmol/L)Toxicity: >100 ng/mL (>250 nmol/L) Start: 06-27-2024 Urine culture Renard Hensley rustam GARLAND Start: 06-27-2024 Urnls dip stick/tabl et reagent auto microscopy Renard GARLAND Start: 06-24-2024 Measurement of renal function Renard GARLAND Comment on above: GFR Calc Start: 06-07-2024 Urine culture Renard daymaximo GARLAND Start: 06-07-2024 Urnls dip stick/tabl et reagent auto microscopy Renard Shellierustam GARLAND Start: 11-22-2023 Radiologic exam swal low function contrast study Renard Amezquitahola Work Phone: Start: 10-02-2023 Comprehensive metabo lic [...] ev cleared fda spec home use Brady G Nesheim DO Work Phone: Start: 03-21-2021 Assay of [...] p erq radiologic eval gi tube Elizabeth Burgess MD Work Phone: Start: 06-26-2020 Contrast injection p erq radiologic eval gi tube Abelardo Wilkersonash Work Phone: Start: 06-26-2020 FEEDING TUBE REPLACEMENT Abelardo A Gombash Work Phone: Start: 05-22-2019 End: 05-22-2019 Arthrocentesis [...] lower extremity w /o contrast material Elizabeth Burgess MD Work Phone: Start: 08-21-2018 Microscopic examinat ion of blood, culture Comment on above: Order Comment: Speci men Source Comment:Blood Performed By: #### H EMDF, PT, BMP3M, PHOS3, MG3, CK3 #### [facility] [address] [place] [address] #### [id number] #### [facility] [address] [place] [address] Start: 07-27-2018 Microscopic examinat ion of blood, culture Comment on above: Order Comment: Speci men Source Comment:Blood Performed By: #### H EMDF, PT, BMP3M, PHOS3, MG3, CK3 #### [facility] [address] [place] [address] #### [id number] #### [facility] [address] [place] [address] Start: 07-19-2018 Microscopic examinat ion of blood, culture Comment on above: Order Comment: Speci men Source Comment:Blood Performed By: #### H EMDF, PT, BMP3M, PHOS3, MG3, CK3 #### [facility] [address] [place] [address] #### [id number] #### [facility] [address] [place] [address] Start: 01-02-2003 CONVERTED SURGICAL PATHOLOGY Beni Vera Work Phone: Urine culture NEGATED: Highlighted rowStart: 05-22-2019 End: 05-22-2019 Documentation of current medications Ana Stevenson MODESTO NEGATED: Highlighted rowStart: 05-22-2019 End: 05-22-2019 Smoking cessation education Ana Stevenson MODESTO Plan of Treatment Date Care Activity Detail Author Start: 2032 RSV Immunization for Adults (1 - 1-dose 75+ series) RSV Immunization for Adults (1 - 1-dose 75+ series) [facility] Start: 01-10-2027 DTaP/Tdap/Td vaccine (2 - Td or Tdap) DTaP/Tdap/Td vaccine (2 - Td or Tdap) [facility] Start: 01-10-2027 DTaP/Tdap/Td vaccine (2 - Td) DTaP/Tdap/Td vaccine (2 - Td) [facility] Work Phone: Start: 01-10-2027 DTaP/Tdap/Td Vaccine s (2 - Td or Tdap) DTaP/Tdap/Td Vaccines (2 - Td or Tdap) [facility] Start: 12-30-2024 Influenza vaccination Influenz a Vaccine (Season Ended) [facility] Start: 03-22-2024 Diabetes mellitus screening Diabetes Screening [facility] Start: 12-31-2023 COVID-19 Vaccine ( season) COVID-19 Vaccine ( season) [facility] Start: 12-31-2023 COVID-19 Vaccine ( season) COVID-19 Vaccine ( season) [facility] Start: 12-31-2023 COVID-19 Vaccine ( season) COVID-19 Vaccine ( season) [facility] Start: 12-31-2023 Influenza vaccination [facility] Start: 01-30-2023 Bacteria identified in Urine by Culture Urine Culture [facility] Start: 01-30-2023 [facility] Start: 12-30-2022 COVID-19 Vaccine ( season) COVID-19 Vaccine ( season) [facility] Start: 2022 Pneumococcal 0-64 ye ars Vaccine (2 of 2 - PPSV23) Pneumococcal 0-64 years Vaccine (2 of 2 - PPSV23) [facility] Start: 2022 Pneumococcal 0-64 ye ars Vaccine (2 of 2) Pneumococcal 0-64 years Vaccine (2 of 2) [facility] Work Phone: Start: 2022 Pneumococcal Vaccine : 65+ Years (2 of 2 - PCV) Pneumococcal Vaccine: 65+ Years (2 of 2 - PCV) [facility] Start: 12-30-2021 Influenza vaccination Influenza Vacc ine (#1) [facility] Start: 12-30-2020 Influenza vaccination [facility] Start: 12-31-2019 Influenza vaccination Flu vaccine (# 1) [facility] Work Phone: Start: 08-18-2019 A1C test (Diabetic o r Prediabetic) A1C test (Diabetic or Prediabetic) [facility] Work Phone: Start: 08-18-2019 HbA1c (Bld) [Mass fraction] A1C test (Diabetic or Prediabetic) [facility] Work Phone: Start: 08-18-2019 Hemoglobin A1c measurement A1C test (Diabetic or Prediabetic) [facility] Start: 05-22-2019 End: 05-22-2019 Appointment Appointment [facility] Work Phone: Start: 02-07-2019 Lipid panel Lipid screen [facility] Start: 02-07-2019 Lipid screen Lipid screen [facility] Work Phone: Start: 12-30-2018 Influenza vaccination Flu vaccine (# 1) [facility] Work Phone: Start: 01-10-2018 Pneumococcal Vaccine : 50+ Years (2 of 2 - PCV) Pneumococcal Vaccine: 50+ Years (2 of 2 - PCV) [facility] Start: 01-10-2018 Pneumococcal Vaccine : 65+ Years (2 - PCV) Pneumococcal Vaccine: 65+ Years (2 - PCV) [facility] Start: 2017 RSV Immunization age d 60 or older (1 - 1-dose 60+ series) RSV Immunization aged 60 or older (1 - 1-dose 60+ series) [facility] Start: 2007 Colon cancer screen colonoscopy Colon cancer screen colonoscopy [facility] Work Phone: Start: 2007 Screening for malign ant neoplasm of colon Colon cancer screen colonoscopy [facility] Work Phone: Start: 2007 Shingles Vaccine (1 of 2) Shingles Vaccine (1 of 2) [facility] Start: 2007 Zoster Vaccines (1 o f 2) Zoster Vaccines (1 of 2) [facility] Start: 2002 Screening for malign ant neoplasm of colon Colon cancer screen colonoscopy [facility] Start: 1976 Hepatitis A Vaccines (1 of 2 - Risk 2-dose series) Hepatitis A Vaccines (1 of 2 - Risk 2-dose series) [facility] Start: 1975 Hepatitis C screening Hepatitis C Sc reening [facility] Start: 1969 COVID-19 Vaccine (1) COVID-19 Vaccin e (1) [facility] Start: 1969 Depression Monitoring Depression Mon itoring [facility] Start: 1969 Depression Screen Depression Screen [facility] Start: 1962 COVID-19 Vaccine (1) COVID-19 Vaccin e (1) [facility] Start: 1957 COVID-19 Vaccine (#1) COVID-19 Vacci ne (#1) [facility] Start: 1955 Annual wellness visit Medicare Initial Physical (IPPE) [facility] Start: 1955 Hepatitis B Vaccines (1 of 3 - 3-dose series) Hepatitis B Vaccines (1 of 3 - 3-dose series) [facility] Start: 1955 Lipid panel Lipid Panel [facility] Start: 1955 Screening for malign ant neoplasm of colon [facility] Basic metabolic 2000 panel - Serum or Plasma Basic Metabolic Panel Lab Routine Daily until discontinued starting 03/23/2021, 2 completed [employer] Work Phone: Comment on above: Daily until disconti nued starting 03/23/2021, 2 completed CBC W Auto Different ial panel - Blood CBC Auto Differential Lab Routine Daily until discontinued starting 03/23/2021, 2 completed [employer] Work Phone: Comment on above: Daily until disconti nued starting 03/23/2021, 2 completed End: 06-24-2024 CT Chest WO contrast [facility] [employer] Work Phone: Comment on above: Once for 1 Occurrenc es starting 06/24/2024 until 06/24/2024 Culture, Blood 2 Culture, Blood 2 Microbiology STAT 03/19/2021 6:26 PM EST [employer] Work Phone: End: 03-20-2021 Culture, Respiratory Culture, Respiratory Microbiology Routine One Time for 1 Occurrences starting 03/20/2021 until 03/20/2021 [employer] Work Phone: Comment on above: One Time for 1 Occur rences starting 03/20/2021 until 03/20/2021 EKG 12 Lead EKG 12 Lead ECG STAT 03/18/2021 3:20 PM EST [employer] Work Phone: Feeding Tube Feeding Tube Pro cedures Routine 10/30/2020 2:22 PM EDT [employer] Work Phone: End: 09-22-2020 FL WATER SOLUBLE ENEMA W OR WO KUB FL WATER SOLUBLE ENEMA W OR WO KUB Imaging STAT Once for 1 Occurrences starting 09/22/2020 until 09/22/2020 [employer] Work Phone: Comment on above: Once for 1 Occurrenc es starting 09/22/2020 until 09/22/2020 End: 03-23-2021 Glucose [Mass/volume] in Serum or Plasma POCT GLUCOSE Point of Care Testing Routine Now Then Every 6hr for 7 Occurrences starting 03/21/2021 until 03/23/2021 [employer] Work Phone: Comment on above: Now Then Every 6hr f or 7 Occurrences starting 03/21/2021 until 03/23/2021 High Frequency Chest Wall Oscillation (HFCWO) High Frequency Chest Wall Oscillation (HFCWO) Respiratory Care Routine (respiratory use only) until discontinued starting 03/22/2021 [employer] Work Phone: Comment on above: (respirato ry use only) until discontinued starting 03/22/2021 End: 03-20-2021 Legionella Antigen, Urine Legionella Antigen, Urine Microbiology Routine One Time for 1 Occurrences starting 03/20/2021 until 03/20/2021 [email or web address] Phone: Comment on above: One Time for 1 Occur rences starting 03/20/2021 until 03/20/2021 Microscopic examinat ion of blood, culture Culture, Blood Microbiology STAT 03/19/2021 6:26 PM EST [employer] Work Phone: End: 03-20-2021 Microscopic observation [Identifier] in Unspecified specimen by Gram stain Gram Stain Microbiology Routine Once for 1 Occurrences starting 03/20/2021 until 03/20/2021 [email or web address] Phone: Comment on above: Once for 1 Occurrenc es starting 03/20/2021 until 03/20/2021 Oxygen therapy [[facility] Data Set] Initiate Oxygen Therapy Protocol Respiratory Care Routine Daily until discontinued starting 03/20/2021 [employer] Work Phone: Comment on above: Daily until disconti nued starting 03/20/2021 Patient Education \\cps-sql1\\CPS_ PtEducati on\\CDC_FALL_PREVENTION. pdf, \\cps-sql1\\CPS_PtEducati on\\quitting_smoking_[id number].pdf [facility] Work Phone: RT Communication Order RT Commun ication Order Respiratory Care STAT Daily until discontinued starting 03/18/2021 [employer] Work Phone: Comment on above: Daily until disconti nued starting 03/18/2021 RT Communication Order RT Commun ication Order Respiratory Care Routine Daily until discontinued starting 03/20/2021 [facility] Work Phone: Comment on above: Daily until disconti nued starting 03/20/2021 End: 03-20-2021 STREP PNEUMONIAE ANTIGEN STREP PNEUMONIAE ANTIGEN Microbiology Routine One Time for 1 Occurrences starting 03/20/2021 until 03/20/2021 [facility] Work Phone: Comment on above: One Time for 1 Occur rences starting 03/20/2021 until 03/20/2021 End: 03-18-2021 Urinalysis Urinalysis Lab STAT One Time for 1 Occurrences starting 03/18/2021 until 03/18/2021 [facility] Work Phone: Comment on above: One Time for 1 Occur rences starting 03/18/2021 until 03/18/2021 End: 03-18-2021 Urine Drug Screen Urine Drug Screen Lab STAT One Time for 1 Occurrences starting 03/18/2021 until 03/18/2021 [facility] Work Phone: Comment on above: One Time for 1 Occur rences starting 03/18/2021 until 03/18/2021 End: 09-22-2020 XR ABDOMEN (KUB) (SINGLE AP VIEW) XR ABDOMEN (KUB) (SINGLE AP VIEW) Imaging Routine Once for 1 Occurrences starting 09/22/2020 until 09/22/2020 [facility] Work Phone: Comment on above: Once for 1 Occurrenc es starting 09/22/2020 until 09/22/2020 Immunizations Immunization Date Immunization Notes Care Provider [facility] 02-02-2021 influenza virus vacc ine, unspecified formulation Rashaad Smith [employer] Work Phone: [facility] [employer] 01-10-2017 pneumococcal polysaccharide vaccine, 23 valent Elizabeth Burgess MD Work Phone: [facility] 01-10-2017 tetanus toxoid, redu delia diphtheria toxoid, and acellular pertussis vaccine, adsorbed Elizabeth Burgess MD Work Phone: [facility] Work Phone: Payers Date Payer Category Payer Self-pay [id number] 2019 Medicaid [id number] 2019 Medicaid [id number]. [id number] 2018 Private Health Insurance [id number]. [id number] 2018 Private Health Insurance [facility] xxxxxxxxx 2018-Present [phone] [address] [place] [address] xxxxxxxxx [id number]. [id number] 1957 Unknown [id number] 2.16.840.1.218097.3.579.2. 668 1957 Unknown [id number] 2.16.840.1.311582.3.579.2. 668 Private Health Insurance Unknown [id number] 2.840.1.082713.3.579.2. 462 Unknown [id number] 2.16.840.1.876793.3.579.2. 462 Unknown [id number] 2.16.840.1.518502.3.579.2. 462 Unknown [id number] 2.16.840.1.922877.3.579.2. 462 Unknown [id number] 2.16.840.1.570997.3.579.2. 462 Unknown [id number] 2.16.840.1.227922.3.579.2. 462 Unknown [id number] 2.16.840.1.754213.3.579.2. 462 Unknown [id number] 2.16.840.1.197163.3.579.2. 462 Unknown [id number] 2.16.840.1.584730.3.579.2. 462 Unknown [id number] 2.16.840.1.305483.3.579.2. 462 Unknown [id number] 2.16840.1.500704.3.579.2. 462 Unknown [id number] 2.16.840.1.834548.3.579.2. 462 Unknown [id number] 2.840.1.098343.3.579.2. 462 Unknown [id number] 2.840.1.448135.3.579.2. 462 Unknown [id number] 2.840.1.883112.3.579.2. 462 Unknown [id number] 2.840.1.067353.3.579.2. 462 Unknown [id number] 2.840.1.444739.3.579.2. 462 Unknown [id number] 2.840.1.832833.3.579.2. 462 Unknown [id number] 2.840.1.482424.3.579.2. 462 Unknown [id number] 2.840.1.571323.3.579.2. 462 Unknown [id number] 2.840.1.728899.3.579.2. 462 Unknown [id number] 2.840.1.476012.3.579.2. 462 Unknown [id number] 2.840.1.503801.3.579.2. 462 Unknown [id number] 2.840.1.001279.3.579.2. 462 Unknown [id number] 2.840.1.504461.3.579.2. 462 Unknown [id number] 2.16.840.1.363760.3.579.2. 462 Unknown [id number] 2.16.840.1.315595.3.579.2. 462 Unknown [id number] 2.16.840.1.898384.3.579.2. 462 Unknown [id number] 2.16.840.1.462298.3.579.2. 462 Unknown [id number] 2.16840.1.660461.3.579.2. 462 Unknown [id number] 2.16840.1.588517.3.579.2. 462 Unknown [id number] 2.840.1.683693.3.579.2. 462 Unknown [id number] 2.840.1.494647.3.579.2. 462 Unknown [id number] 2.840.1.797056.3.579.2. 462 Unknown [id number] 2.840.1.716255.3.579.2. 462 Unknown [id number] 2.840.1.894830.3.579.2. 462 Unknown [id number] 2.840.1.600966.3.579.2. 462 Unknown [id number] 2.840.1.956916.3.579.2. 462 Unknown [id number] 2.840.1.325774.3.579.2. 462 Unknown [id number] 2.16840.1.937661.3.579.2. 462 Unknown [id number] 2.16840.1.332963.3.579.2. 462 Unknown [id number] 2.16840.1.431292.3.579.2. 462 Unknown [id number] 2.16840.1.861574.3.579.2. 462 Unknown [id number] 2.840.1.875694.3.579.2. 462 Unknown [id number] 2.16.840.1.280587.3.579.2. 462 Unknown [id number] 2.16.840.1.887350.3.579.2. 462 Unknown [id number] 2.16.840.1.705587.3.579.2. 462 Unknown [id number] 2.16.840.1.276524.3.579.2. 462 Unknown [id number] 2.16.840.1.602067.3.579.2. 462 Unknown [id number] 2.16.840.1.514971.3.579.2. 462 Unknown [id number] 2.16.840.1.361777.3.579.2. 462 Unknown [id number] 2.16.840.1.608798.3.579.2. 462 Unknown [id number] 2.16.840.1.033603.3.579.2. 462 Unknown [id number] 2.16.840.1.457446.3.579.2. 462 Unknown [id number] 2.16.840.1.217963.3.579.2. 462 Unknown [id number] 2.16.840.1.248451.3.579.2. 462 Unknown [id number] 2.16.840.1.724987.3.579.2. 462 Unknown [id number] 2.16.840.1.379519.3.579.2. 462 Social History Date Type Detail Facility Tobacco smoking status AKIS Unknown if ever smoked [facility] Work Phone: Start: 1955 Sex Assigned At Not on file [employer] Work Phone: Start: 11-05-2018 End: 06-26-2020 Tobacco smoking status AKIS Former smoker [employer] Work Phone: End: 02-06-2016 History of tobacco use Current smoker [employer] Work Phone: End: 02-06-2016 History of tobacco use Cigar Smoker [employer] Work Phone: Start: 02-05-2018 End: 06-26-2020 Tobacco use and exposure Never used [employer] Work Phone: Start: 06-26-2020 End: 05-20-2022 Alcohol intake Current drinker of alcohol (finding) [employer] Work Phone: Start: 07-08-2018 Alcohol Comment 2 times per wo rk, occasionally liquor [employer] Work Phone: Start: 05-10-2022 End: 05-20-2022 Exposure to SARS-CoV-2 (event) Not sure [employer] Work Phone: Start: 09-22-2020 End: 05-20-2022 Alcohol intake [facility] [employer] Start: 1955 Sex Assigned At Male [facility] End: 02-06-2016 History of tobacco use Cigarette Smoker [facility] [employer] Start: 05-20-2022 End: 10-02-2023 Tobacco use panel [facility] [employer] How often to you have a drink containing alcohol? Never [facility] How many standard drinks containing alcohol do you have on a typical day? Patient does not drink [facility] [employer] Start: 11-29-2021 End: 08-16-2024 Sex Male (finding) [facility] [employer] Tobacco smoking status NHIS Unknown if ever smoked [facility] Work Phone: NEGATED: Highlighted rowStart: 05-22-2019 End: 05-22-2019 Alcohol use Alcohol use [facility] Work Phone: NEGATED: Highlighted rowStart: 05-22-2019 End: 05-22-2019 Assertion Current some day smoker [facility] Work Phone: NEGATED: Highlighted rowStart: 05-22-2019 End: 05-22-2019 Details of drug misuse behavior Details of drug misuse behavior [facility] Work Phone: NEGATED: Highlighted rowStart: 05-22-2019 End: 05-22-2019 Tobacco use and exposure Tobacco use and exposure [facility] Work Phone: Clinical Notes 03-18-2021 to 05-03-2024 Telephone Encounter - Aravind Russo Rodrigo - 05/03/2024 5:29 PM ESTTelephone Encounter - Aravind Russo Rodrigo - 05/03/2024 5:29 PM ZACHARY Baptiste - 11/22/2023 11:30 AM EDTDischarge Instr - CHRIS Note Date & Type Note Facility 05-03-2024 Telephone encounter Note Gissel is calling to let Dr. Burgos know that the medication he prescribed he not certified, she is going to fax the information to the office. [phone] [facility] 05-03-2024 Miscellaneous Notes Gissel is calling to let Dr. Burgos know that the medication he prescribed he not certified, she is going to fax the information to the office. [phone] documented in this encounter [facility] 11-22-2023 History of Presen t illness Narrative Images from the original note were not included. Speech-Language Pathology SPEECH LANGUAGE PATHOLOGY [facility] Modified Barium Swallow [...] despite effort. 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 Frequency: Per treating PHARMACEUTICAL DEVELOPMENT TECHNICIAN Barriers: large osteophytes, bridging with anterior projection [...] Prior MBSS?: No, unable to locate in [facility] Current Diet: Puree diet with ?liquid (no information from [place]) Textures tested: - thin liquid, (cup edge) - mildly thick liquid, (cup edge) - puree, (teaspoon) Patient position: lateral Past Medical History: Past Medical History: Diagnosis Date TREVER (acute kidney injury) ([facility]) ([facility]) Alcohol abuse 07/08/2018 Anxiety C1 spinal cord injury ([facility]) ([facility]) Depression Fall 06/2018 Schizophrenia ([facility]) Past Surgical History: Past Surgical History: Procedure Laterality Date CERVICAL FUSION 07/09/2014 C2-6 cervical fusion GASTROSTOMY TUBE PLACEMENT 07/13/2018 TRACHEOSTOMY 07/13/2018 Admission Diagnosis: Patient Active Problem List Diagnosis Date Noted Respiratory syncytial virus (RSV) 03/22/2021 Hypoxia 03/19/2021 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[facility]) ([facility]) 08/16/2018 Chronic latent schizophrenia ([facility]) 08/15/2018 Prolonged Q-T interval on ECG 08/15/2018 Abdominal wall abscess 08/15/2018 Central cord syndrome (CMS/HCC) ([facility]) 08/15/2018 Respiratory failure after trauma ([facility]) 08/15/2018 Pressure ulcer of sacral region, stage 2 ([facility]) 08/09/2018 Urinary retention 07/28/2018 Acute respiratory failure with hypoxia ([facility]) 07/26/2018 Mild bibasilar atelectasis 07/26/2018 Hospital-acquired pneumonia 07/26/2018 Bilateral pleural effusion 07/26/2018 Ileus (CMS/HCC) ([facility]) 07/23/2018 TREVER (acute kidney injury) ([facility]) 07/23/2018 Hypokalemia 07/21/2018 Vertebral artery occlusion, bilateral 07/11/2018 Vitamin D insufficiency 07/10/2018 Alcohol abuse 07/08/2018 Closed wedge compression fracture of first thoracic vertebra ([facility]) 07/08/2018 Traumatic nondisp spondylolisthesis of C3 vertebra with closed fx, initial encounter ([facility]) 07/08/2018 Closed fracture dislocation of cervical spine ([facility]) 07/08/2018 Pain: Pt denies any current pain. Reason for current admission: Pt with h/o of PEG and trach from 2019. Pt is currently decannulated. H/o Supervisor Metalizing cervical fusion C2-C6. Noted very large connective [...] able to eat by mouth. Therapy Time PHARMACEUTICAL DEVELOPMENT TECHNICIAN Individual Minutes Time In: 1150 Time Out: 1215 Minutes: 25 ZACHARY Sun documented in this encounter [facility] 10-02-2023 Emergency department Note [facility] at bedside at this time Mami Lantigua RN 10/02/23 1420 [facility] 10-02-2023 Emergency department Note [facility] at bedside at this time Mami Lantigua RN 10/02/23 142 This RN gave report to Marnie at [facility] at this time Mami Lantigua RN 10/02/23 1358 This RN went to evaluate patient, was on 2L o2 and does not wear at baseline, plan is dc, this RN turned o2 off to trial patient, spo2 monitor on Mami Lantigua RN 10/02/[address] cart Eloisa Alfaro RN 10/02/23 1043 Emergency Department Encounter [facility] Patient: Kathya Hooper : 1955 Date [...] occasionally words are mis-transcribed.) Fei Farooq MD [facility] Fei Farooq MD 10/02/23 1129 Pt was brought in via [facility] from [facility] for Left sided facial droop. Per EMS nurse is new and does not know patient very well but he is A&O x 2 at baseline. Per EMS the nurse states it was 20 mins ago. Contacted nurse that was caring for him and she states that was the first time she has seen him for that day, night shift manager did not report any problems. EMS states [...] encounter [facility] 10-02-2023 Emergency department Note This RN gave report to Marnie at [facility] at this time Mami Lantigua RN 10/02/23 1358 [facility] 10-02-2023 Emergency department Note This RN went to evaluate patient, was on 2L o2 and does not wear at baseline, plan is dc, this RN turned o2 off to trial patient, spo2 monitor on Mami Lantigua RN 10/02/23 1325 [facility] 10-02-2023 Emergency department Note Pt to ct via cart Eloisa Alfaro RN 10/02/23 1043 [facility] 10-02-2023 Emergency department Triage note Pt was brought in via [facility] from [facility] for Left sided facial droop. Per EMS nurse is new and does not know patient very well but he is A&O x 2 at baseline. Per EMS the nurse states it was 20 mins ago. Contacted nurse that was caring for him and she states that was the first time she has seen him for that day, night shift manager did not report any problems. EMS states [...] BS 131. [facility] 10-02-2023 Physician Emergency department Note Emergency Department Encounter [facility] Patient: Kathya Hooper : 1955 Date [...] words are mis-transcribed.) Fei Farooq MD Acute [facility] Fei Farooq MD 10/02/23 1129 [email or web address] Work Phone: 05-20-2022 Emergency department Note Report called to intermediate. Copy of Xray report sent with discharge packet Gary Ghosh RN 05/20/222007 [email or web address] 05-20-2022 Emergency department Note Report called to intermediate. Copy of Xray report sent with discharge packet Gary Ghosh RN 05/20/222007 Emergency Department [facility] Patient: Kathya Hooper : 1955 Date of Evaluation: 05/20/2022 ED Supervising Physician: Abelardo Rios DO I independently examined and evaluated Kathya Hooper. This will serve as my Supervisory note as the primary care provider of record and shared attestation. I did perform a substantive portion of the visit including all aspects of the Medical Decision Making. I wore appropriate PPE for the entirety of this encounter. In brief, Kathya Hooper is a 67 y.o. male that presents to the emergency department after his G-tube fell out today at the intermediate. Upon inspection of the G-tube, it appears [...] tube which fell out today at the intermediate. Tube was easily replaced in the emergency room. Will order KUB with dye study to confirm placement and discharge back to the intermediate. X-ray confirms due to position within the [...] for clarification.) Abelardo Rios DO Acute Care [facility] Abelardo Rios DO 05/20/222014 documented in this encounter [facility] 05-20-2022 Miscellaneous Notes Associated Order(s): Feeding Tube Replacement Procedure Feeding Tube Replacement Performed by: Dejah Hazel DO Authorized by: Abelardo iRos DO Consent: Consent obtained: Verbal Consent given by: Patient [place] protocol: Patient identity confirmed: Verbally with patient [...] DO Resident 05/20/221931 documented in this encounter [facility] [employer] 05-20-2022 Note Associated Order(s): Feeding Tube Replacement Procedure Feeding Tube Replacement Performed by: Dejah Hazel DO Authorized by: Abelardo Rios DO Consent: Consent obtained: Verbal Consent given by: Patient [place] protocol: Patient identity confirmed: Verbally with patient [...] immediate complications Dejah Hazel DO Resident 05/20/221931 [employer] [facility] Phone: 05-20-2022 Note Associated Order(s): Feeding Tube Replacement Procedure Feeding Tube Replacement Performed by: Dejah Hazel DO Authorized by: Abelardo Rios DO Consent: Consent obtained: Verbal Consent given by: Patient [place] protocol: Patient identity confirmed: Verbally with patient [...] immediate complications Dejah Hazel DO Resident 05/20/221931 [facility] Phone: 05-20-2022 Physician Emergency department Note Emergency Department Encounter [facility] Patient: Kathya Hooper : 1955 Date of Evaluation: 05/20/2022 ED Supervising Physician: Abelardo Rios DO I independently examined and evaluated Kathya Hooper. This will serve as my Supervisory note as the primary care provider of record and shared attestation. I did perform a substantive portion of the visit including all aspects of the Medical Decision Making. I wore appropriate PPE for the entirety of this encounter. In brief, Kathya Hooper is a 67 y.o. male that presents to the emergency department after his G-tube fell out today at the intermediate. Upon inspection of the G-tube, it appears [...] tube which fell out today at the intermediate. Tube was easily replaced in the emergency room. Will order KUB with dye study to confirm placement and discharge back to the intermediate. X-ray confirms due to position within the [...] [employer] Abelardo Rios DO 05/20/222014 [facility] [email or web address] Work Phone: 03-24-2021 Note Hospitalist Discharg e [...] Pneumonia. Treated with antibiotics. He resides in [facility]. He was stablized and discharged Diet NPO ADULT TUBE FEEDING; PEG; 2.0 Calorie; Cyclic; 75; 6:00 PM; 9:00 AM; 200; Q 4 hours Vitals: BP (!) 85/55 Pulse 85 Temp 97.7 ?F (36.5 ?C) (Temporal) Resp 18 Ht 6' 2.02" (1.88 m) Wt 185 lb 14.4 oz [...] Date: 03/18/2021 [id number] Computed Tomography ACCESSION EXAM DATE/TIME PROCEDURE ORDERING PROVIDER [id number] 03/18/2021 16:26 EST CTA Head/Neck w/ + w/o 065949 -alyson CASTRO CPT code 42707 08261 Q9967 Reason For Exam (CTA Head/Neck w/ + w/o contrast) AMS, dysphasia and ?aphasia possibly since yesterday- very poor historian from intermediate w/ unclear prior deficits - here w/ "can't swallow" and can't tell us if it feels [...] airway at the (more content not included)... [facility] 03-24-2021 Hospital course Narrative Hospitalist Discharge Summary [...] Pneumonia. Treated with antibiotics. He resides in [facility]. He was stablized and discharged Diet NPO ADULT TUBE FEEDING; PEG; 2.0 Calorie; Cyclic; 75; 6:00 PM; 9:00 AM; 200; Q 4 hours Vitals: BP (!) 85/55 Pulse 85 Temp 97.7 F (36.5 C) (Temporal) Resp 18 Ht 6' 2.02" (1.88 m) Wt 185 lb 14.4 oz [...] Tomography ACCESSION EXAM DATE/TIME PROCEDURE ORDERING PROVIDER [id number] 03/18/2021 16:26 EST CTA Head/Neck w/ + w/o 583389 -alyson CASTRO CPT code 50247 94372 Q9967 Reason For Exam (CTA Head/Neck w/ + w/o contrast) AMS, dysphasia and ?aphasia possibly since yesterday- very poor historian from intermediate w/ unclear prior deficits - here w/ "can't swallow" and can't tell us if it feels [...] Tomography ACCESSION EXAM DATE/TIME PROCEDURE ORDERING PROVIDER [id number] 03/18/2021 16:27 EST CTA Chest w/ + w/o 120290 -Alyson CASTRO CPT code 18365 Q9967 Reason For Exam (CTA Chest w/ + w/o Contrast) pulmonary embolus Report CTA chest with and without contrast History: chest pain Protocol: 1 mm images after IV contrast, 3D rendering performed by ks on a separate workstation No evidence of [...] Radiology ACCESSION EXAM DATE/TIME PROCEDURE ORDERING PROVIDER [id number] 03/19/2021 17:10 EST CR Chest Portable 704459 -NESBRADY WASHBURN CPT code 11871 Reason For Exam (CR Chest Portable) hypoxia [...] Result Date: 03/18/2021 Patient Name: KATHYA HOOPER Diagnostic Radiology ACCESSION EXAM DATE/TIME PROCEDURE ORDERING PROVIDER [id number] 03/18/2021 15:30 EST CR Chest Portable [id number] -CASTRO BOO CPT code 99551 Reason For Exam (CR Chest Portable) sob, [...] Contact Information Primary Emergency Contact: Jason Hooper [facility] Relation: Parent Past Surgical History: Past Surgical History: Procedure Laterality Date CERVICAL FUSION 07/09/2014 C2-6 cervical fusion GASTROSTOMY TUBE PLACEMENT 07/13/2018 TRACHEOSTOMY 07/13/2018 Immunization History: Immunization History Administered Date(s) Administered Pneumococcal Polysaccharide ([id number]) 01/10/2017 Tdap (Boostrix, Adacel) 01/10/2017 Active Problems: Patient Active Problem List Diagnosis Code Closed fracture dislocation of cervical spine ([facility]) S12.9XXA Traumatic nondisp spondylolisthesis of C3 vertebra with closed fx, initial encounter ([facility]) S12.231A Closed wedge compression fracture of first thoracic vertebra ([facility]) S22.010A Central cord syndrome ([facility]) S14.129A Chronic latent schizophrenia ([facility]) F21 Alcohol abuse F10.10 Respiratory failure after trauma ([facility]) J96.90 Vitamin D insufficiency E55.9 Vertebral artery occlusion, 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 Hypokalemia E87.6 Ileus ([facility]) K56.7 TREVER (acute kidney injury) ([facility]) N17.9 Acute respiratory failure with hypoxia ([facility]) J96.01 Hospital-acquired pneumonia J18.9, Y95 Bilateral pleural effusion J90 Mild bibasilar atelectasis J98.11 Urinary retention R33.9 Prolonged Q-T interval on ECG R94.31 Pressure ulcer of sacral region, stage 2 ([facility]) L89.152 Abdominal wall abscess L02.211 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[facility]) K65.4 Hypoxia R09.02 Respiratory syncytial [...] (36.5 C) (Temporal) Resp 18 Ht 6' 2.02" (1.88 m) Wt 185 lb 14.4 oz (84.3 kg) Comment: earlene Ingram RN (bed scale measurement) on 03/20/2021 SpO2 94% BMI 23.86 kg/m Last documented pain score (0-10 scale): Pain Level: 0 Last Weight: Wt Readings from Last 1 Encounters: 03/20/21 185 lb 14.4 oz (84.3 kg) Mental Status: {IP PT MENTAL STATUS:} IV Access: {[place] IV ACCESS:478800714} Nursing Mobility/ADLs: Walking {CHP DME ADLs:099974636} Transfer {CHP DME ADLs:595197407} Bathing {CHP DME ADLs:652678882} Dressing {CHP DME ADLs:972722283} Toileting {CHP DME ADLs:603376349} Feeding {CHP DME ADLs:752627887} Location Manager {CHP DME ADLs:835442424} Med Delivery { CHRIS MED Delivery:773525316} Wound Care Documentation and Therapy: Negative Pressure Wound Therapy Abdomen Left (Active) Number of days: 947 Wound Sacrum Mid (Active) Number of days: Elimination: Continence: Bowel: {YES / NO:} Bladder: {YES / NO:} Urinary Catheter: {Urinary Catheter:973188826} Colostomy/Ileostomy/Ileal Conduit: {YES / NO:} Date of Last BM: No intake or output data in the 24 hours ending 03/24/21 1013 I/O last 3 completed shifts: In: 660 [NG/GT:660] Out: - Safety Concerns: { CHRIS Safety Concerns:536073620} Impairments/Disabilities: { CHRIS Impairments/Disabilities:24173663 3} Nutrition Therapy: Current Nutrition Therapy: { CHRIS Diet List:305714191} Routes of Feeding: {[facility] Other Feedings:454522091} Liquids: {[facility] liquid thickness:66275} Daily Fluid Restriction: {[facility] DME Yes amt example:325852299} Last Modified Barium Swallow with Video (Video Swallowing Test): {Done Not Done Date:431768161} Treatments at the Time of Hospital Discharge: Respiratory Treatments: Oxygen Therapy: {Therapy; copd oxygen:20406} Ventilator: {[facility] Vent List:719778161} Rehab Therapies: {THERAPEUTIC INTERVENTION:0637460690} Weight Bearing Status/Restrictions: {[facility] Weight Bearin} Other Medical Equipment (for information only, NOT a DME order): {EQUIPMENT:620465916} Other Treatments: Patient's personal belongings (please select all that are sent with patient): {[facility] DME Belongings:655783794} RN SIGNATURE: {Esignature:636514297} CASE MANAGEMENT/SOCIAL WORK SECTION Inpatient Status Date: Readmission Risk Assessment Score: Readmission Risk Risk of Unplanned Readmission: 25 Discharging to Facility/ Agency Name: [facility] Address: [address] [place] [address] Dialysis Facility (if applicable) Name: Address: Dialysis Schedule: Phone: Fax: Drying Supervisor/Videographer signature: PHYSICIAN SECTION Prognosis: Good Condition at Discharge: Stable Rehab Potential (if transferring to Rehab): Good Recommended Labs or Other Treatments After Discharge: Physician Certification: I certify the above information and transfer of Kathya Hooper is necessary for the continuing treatment of the diagnosis listed and that he requires Senior Care Facility for greater 30 days. Update Admission [...] loss Fluid Accumulation: No significant fluid accumulation Peer Counselor Strength: Not Performed Estimated Daily Nutrient Needs: Energy (kcal): 5135-6571 (25-30 kcal/kg IBW); Weight Used for Energy Requirements: [place] (86.2 kg) Protein (g): 86-103 (1.0-1.2 g protein/kg IBW); Weight Used for Protein Requirements: [place] (86.2 kg) Fluid (ml/day): per . At [...] @ goal rate Anthropometric Measures: Height: 6' 2.02" (188 cm) Current Body Weight: 187 lb (84.8 kg) Admission Body Weight: 185 lb 13.6 oz (84.3 kg) (03/20) Usual Body Weight: 187 lb 1.6 oz (84.9 kg) (per facility on 03/02/21, October weight= 185.5# on 01/29/21) [place] Body Weight: 190 lbs; % [place] Body Weight 97.8 % BMI: 24 Adjusted [...] Skin, Weight Discharge Planning: Enteral Nutrition Contact: *[phone] Images from the original note were not included. Hospitalist Progress Note 03/23/2021 9:27 AM Subjective: Admit Date: 03/19/2021 PCP: No primary care provider on file. Room#: 359/6698 Patient seen and examined. Laying in bed. [...] (36.2 C) (Temporal) Resp 20 Ht 6' 2.02" (1.88 m) Wt 185 lb 14.4 oz [...] from the original note were not included. [facility] Pulmonary Critical Care and Sleep Medicine [address] [place] [address] Patient - Kathya Hooper, Age - 66 y.o. - 1955 Room Number - [phone]/[phone] Consulting - Rafa Michel MD Primary Care Physician - No primary care provider on file. [id number] Date of Admission - 03/19/2021 3:52 PM Hospital Day - 3 Subjective/Events Past 24 hours/ROS Patient lying in the bed appears to be comfortable denies any chest pain or shortness of breath at rest, currently on 4 L nasal cannula oxygen, no significant events overnight All other systems reviewed Objective Vitals height is 6' 2.02" (1.88 m) and weight is 185 lb [...] of bed. Pt thought there was a photocopying equipment repairer in the corner of his room. When pt got his meds he calmed down. Pt now watching tv. Call light within reach. Bed alarm on. Images from the original note were not included. [facility] Pulmonary Critical Care and Sleep Medicine [address] [place] [address] Patient - Kathya Hooper, Age - 66 y.o. - 1955 Room Number - 465/[phone] Consulting - Rafa Michel MD Primary Care Physician - No primary care provider on file. Date of Admission - 03/19/2021 3:52 PM Hospital Day - 2 Subjective/Events Past 24 hours/ROS On 6L supplemental oxygen, does not use at ECF. He reports feeling a little better today. Has a frequent cough and trouble getting up phlegm. All other systems reviewed Objective Vitals Vitals: BP 137/79 Pulse 98 Temp 98.1 F (36.7 C) (Temporal) Resp 20 Ht 6' 2.02" (1.88 m) Wt 185 lb 14.4 oz (84.3 kg) Comment: earlene Ingram RN (bed scale measurement) on 03/20/2021 SpO2 93% BMI 23.86 kg/m Pulse Ox: SpO2 Av.4 % Min: 89 % Max: 96 % Supplemental O2: O2 Flow Rate (L/min): 6 L/min I/O 24HR INTAKE/OUTPUT: Intake/Output Summary (Last 24 hours) at 03/22/2021 09 Last data filed at 03/22/2021 0407 Gross [...] (36.7 C) (Temporal) Resp 20 Ht 6' 2.02" (1.88 m) Wt 185 lb 14.4 oz [...] primary care provider on file. Room#: 465/4658 Patient seen and examined. Laying in bed. [...] last 72 hours. CARDIAC ENZYMES: Recent Labs 03/19/21170903/20/21 0023 TROPONINI 0.017 0.037* Procalcitonin: Lab Results Component Value Date PROCAL 0.14 03/20/2021 Objective: Vitals: BP 137/79 Pulse 98 Temp 98.1 F (36.7 C) (Temporal) Resp 20 Ht 6' 2.02" (1.88 m) Wt 185 lb 14.4 oz [...] Readings from Last 1 Encounters: 03/20/21 6' 2.02" (1.88 m) Wt Readings from Last 1 [...] y.o. - 1955 Room Number - 465/4651 [facility] - [address] [facility] # - [id number] Date of Admission - 03/19/2021 3:52 PM Hospital Day - 1 HPI/Subjective Patient sleepy, easily awake Still on 6 L N/C No resp distress No rattling today Active Hospital Problem List Active Hospital Problems Diagnosis Date Noted Hypoxia [R09.02] 03/19/2021 RSV (respiratory syncytial virus infection) [B97.4] 03/19/2021 Events of Past 24 Hours as noted above All other systems reviewed Vitals height is 6' 2.02" (1.88 m) and weight is 185 lb [...] Date 03/21/21 0000 - 03/21/21 2359 Shift 8513-4027 8110-9775 0014-0894 24 Hour Total INTAKE NG/GT(mL/kg) 542(6.4) 542(6.4) [...] included. Hospitalist Progress Note 03/21/2021 9:41 AM [phone]: Please page me for patient care issues. [phone]: Please page [facility] night Hospitalist for any issues. Subjective: Admit Date: 03/19/2021 PCP: No primary care provider on file. Room#: 465/4651 Interval History: Lethargic, hard to arouse this [...] (37.8 C) (Temporal) Resp 18 Ht 6' 2.02" (1.88 m) Wt 185 lb 14.4 oz [...] Trach PEG 07/13/2018. Present[facility] from [facility] to [facility] ED with worsening SOB. Evaluated in [...] loss Fluid Accumulation: No significant fluid accumulation Peer Counselor Strength: Not Performed Estimated Daily Nutrient Needs: Energy (kcal): 0818-7173 (25-30 kcal/kg IBW); Weight Used for Energy Requirements: [place] (86.2 kg) Protein (g): 86-103 (1.0-1.2 g protein/kg IBW); Weight Used for Protein Requirements: [place] (86.2 kg) Fluid (ml/day): per MD. At facility receivin mL free water daily from EN and flushes; Method Used for Fluid Requirements: Other (Comment) Nutrition Related Findings: Massimo score= 15. No skin breakdown or edema noted. S/p Trach/PEG, per PHARMACEUTICAL DEVELOPMENT TECHNICIAN note, does not take any food, drink [...] Flush Orders Provides: Anthropometric Measures: Height: 6' 2.02" (188 cm) Current Body Weight: 185 lb 13.6 oz (84.3 kg) (03/20) Admission Body Weight: 185 lb 13.6 oz (84.3 kg) (03/20) Usual Body Weight: 187 lb 1.6 oz (84.9 kg) (per facility on 03/02/21, October weight= 185.5# on 01/29/21) [place] Body Weight: 190 lbs; % [place] Body Weight 97.8 % BMI: 23.9 BMI [...] Nutrition Contact: 2430 Speech Language Pathology Facility/Department: [facility] TELEMETRY CLINICAL BEDSIDE SWALLOW EVALUATION NAME: [...] Stated he was drinking, and known to "slam his head" against "things". Kalyani states that she is the only family [phone] Images from the original note were not included. Hospitalist Progress Note 03/20/2021 9:58 AM [phone]: Please page me for patient care issues. [phone]: Please page [facility] night Hospitalist for any [...] planning: TBD . documented [facility] Work Phone: 03-18-2021 History of Presen t illness Narrative NIF -20 documented in this encounter [facility] Work Phone: 03-18-2021 Hospital Discharg Boo Stringer MD - 03/18/2021 [facility]. [facility] for low oxygen levels. [...] cannot be sent through Care Everywhere.Viral Infections ([place])documented in this encounter [facility] Work Phone: Evaluation note Diagnosis PEG tube malfunction (HCC)- Primary Mechanical complication of gastrostomy documented in this encounter [facility] Work Phone: Evaluation note* Diagnosis Feeding tube dysfunction, initial encounter- Primary documented in this encounter [facility] Work Phone: Evaluation note* Diagnosis Respiratory syncytial virus (RSV)- Primary Hypoxia Hypoxemia documented in this encounter [facility] Work Phone: Evaluation note* Diagnosis Respiratory syncytial virus (RSV)- Primary Hypoxia Hypoxemia documented in this encounter [facility] Work Phone: Evaluation note* Diagnosis PEG tube malfunction (HCC)- Primary Mechanical complication of gastrostomy documented in this encounter [facility] Work Phone: Evaluation note* Diagnosis Contusion of right hip, initial encounter- Primary documented in this encounter [facility] Work Phone: Evaluation noteNo assessment information available [facility] Work Phone: Evaluation note* Diagnosis Dyspnea, unspecified type- Primary [facility] Diagnosis Dysphagia, oropharyngeal phase Feeding difficulties Feeding difficulties and mismanagement documented in this encounter [facility] note* Diagnosis Dysphagia, oropharyngeal phase- Primary Feeding difficulties Feeding difficulties and mismanagement Dysphagia, oropharyngeal phase Feeding difficulties Feeding difficulties and mismanagement [facility]* Diagnosis Dislodged gastrostomy tube- Primary [facility] this [facility]* Diagnosis Chronic cough Cough [facility] Diagnosis Chronic cough- Primary Cough Chronic cough Cough [facility] Attachments The following attachments cannot be sent through Care Everywhere. * PEG (Percutaneous Endoscopic Gastrostomy): Post-op ([place]) documented in this [facility] Work Phone: Hospital Discharge instructions* Attachments The following attachments cannot be sent through Care Everywhere. * Feeding Tube: General Info ([place]) documented in this [facility] Work Phone: Hospital Discharge instructions* Instructions* Mary Cochran PA-C - 05/15/2021 Please return to the ED if you have any new or worsening symptoms. documented in this [facility] Work Phone: Hospital Discharge instructions* Attachments The following attachments cannot be sent through Care Everywhere. * Hip Pain ([place]) * Contusion ([place]) documented in this [facility] Work Phone: Hospital Discharge instructions* Attachments The following attachments cannot be sent through Care Everywhere. * Shortness of Breath (Dyspnea) Discharge Instructions ([place]) documented in this [facility] Discharge instructions* Attachments The following attachments cannot be sent through Care Everywhere. * How to Care for Your Gastrostomy Tube ([place]) [facility] (narrative)No reason for referral information availableWLakeHealth [facility] Work Phone: Reason for visit Narrative* Imaging (Routine) - Closed Specialty Diagnoses / Procedures Referred By Soo t Referred To Contact Radiology Diagnoses Chronic cough Procedures CT chest wo IV contrast Rashaad Smith, BAND TACKER - AERIAL GUNNER [address] [address] Phone: tel: fax: Referral ID Status Reason Start Date Expiration Date Visits Re quested Visits Authorized [id number] Closed 06/12/2024 06/12/2025 1 1 [facility] Purpose Family History No Family History Records FoundNo Family History Records FoundThere may be information available, but it has not been provided by the sender.No Family History Records FoundNo Family History Records FoundNo Family History Records FoundNo Family History Records Found Advance Directives No Advanced Directives Records FoundDocuments on File Type Date Recorded Patient Tele Rn Expl anation ACP-Advance Directive ACP-Advance Directive 08/07/2018 1:53 PM ACP-Power of Bartender Latest Code Status on File Code Status Date Activated Date Inactivated Comments Full Code 08/15/2018 8:27 PM 08/22/2018 4:31 PM Full Code 08/15/2018 8:12 PM 08/15/2018 8:27 PM Full Code 07/08/2018 8:28 PM 08/01/2018 2:39 PM Documents on File Type Date Recorded Patient Tele Rn Expl anation ACP-Advance Directive ACP-Power of Bartender ACP-Advance Directive 08/07/2018 1:53 PM Latest Code Status on File Code Status Date Activated Date Inactivated Comments Full Code 03/20/2021 12:17 AM Full Code 08/15/2018 8:27 PM 08/22/2018 4:31 PM Documents on File Type Date Recorded Patient Tele Rn Expl anation ACP-Advance Directive ACP-Power of Bartender ACP-Advance Directive 03/26/2021 9:48 AM ACP-Advance Directive 08/07/2018 1:53 PM Latest Code Status on File Code Status Date Activated Date Inactivated Comments Full Code 03/20/2021 12:17 AM 03/24/2021 3:23 PM Documents on File Type Date Recorded Patient Tele Rn Expl anation Advance Directives and Livin g Will Advance Directives and Livin g Will 08/07/2018 1:53 PM Power of Bartender Documents on File Type Date Recorded Patient Tele Rn Expl anation Advance Directives and Livin g Will 05/23/2022 10:48 AM Advance Directives and Livin g Will 03/19/2021 Documents on File Type Date Recorded Patient Tele Rn Expl anation Advance Directives and Living Will 03/19/2021 Documents on File Type Date Recorded Patient Tele Rn Expl 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 * Feeding Tube: General Info ([place]) documented in this encounter Assessments Diagnosis PEG [...] Complaint and Reason for Visit Chief Complaint ALF LABWORK ALF LAB WORK ALF LABWORK ALF LABWORK ALF LABWORK ALF LAB WORK ALF LABWORK ALF LABWORK ALF LABWORK ALF LABWORK ALF LABWORK ALF LAB WORK ALF LABWORK NURING HOME LABWORK ALF LABWORK ALF LAB WORK ALF LABWORK Chief Complaint ALF LABWORK ALF LABWORK ALF LABWORK ALF LAB WORK ALF LABWORK NURING HOME LABWORK ALF LABWORK ALF LAB WORK ALF LABWORK ALF LABWORK ALF LAB WORK ALF LAB WORK ALF BLOOD WORK ALF LABWORK ALF LAB WORK Chief Complaint ALF LABWORK ALF LABWORK ALF LAB WORK ALF LABWORK NURING HOME LABWORK ALF LABWORK ALF LAB WORK ALF LABWORK ALF LABWORK ALF LAB WORK ALF LAB WORK ALF BLOOD WORK ALF LABWORK LABWORK LABWORK ALF LAB WORK Chief Complaint ALF LABWORK ALF LAB WORK ALF LABWORK NURING HOME LABWORK ALF LABWORK ALF LAB WORK ALF LABWORK ALF LABWORK ALF LAB WORK ALF LAB WORK ALF BLOOD WORK ALF LABWORK LABWORK LABWORK ALF LAB WORK Chief Complaint ALF LAB WOR K ALF LABWORK NURING HOME LABWORK ALF LABWORK ALF LAB WORK ALF LABWORK ALF LABWORK ALF LAB WORK ALF LAB WORK ALF BLOOD WORK ALF LABWORK LABWORK LABWORK ALF LAB WORK Chief Complaint ALF LAB WOR K ALF LABWORK NURING HOME LABWORK ALF LABWORK ALF LAB WORK ALF LABWORK ALF LABWORK ALF LAB WORK ALF LAB WORK ALF BLOOD WORK ALF LABWORK LABWORK LABWORK ALF LAB WORK LABWORK ALF LABWORK Chief Complaint ALF LABWORK NURING HOME LABWORK ALF LABWORK ALF LAB WORK ALF LABWORK ALF LABWORK ALF LAB WORK ALF LAB WORK ALF BLOOD WORK ALF LABWORK LABWORK LABWORK ALF LAB WORK LABWORK ALF LABWORK ALF LAB WORK Chief Complaint ALF BLOOD W ORK ALF LABWORK ALF LABWORK LABWORK LABWORK ALF LAB WORK LABWORK ALF LABWORK ALF LAB WORK LABWORK ALF LAB WORK ALF LAB WORK LABWORK ALF LAB WORK Chief Complaint ALF BLOOD W ORK ALF LABWORK ALF LABWORK LABWORK LABWORK ALF LAB WORK LABWORK ALF LABWORK ALF LAB WORK LABWORK ALF LAB WORK ALF LAB WORK LABWORK ALF LAB WORK LABWORK Chief Complaint LABWORK LABWORK ALF LAB WORK LABWORK ALF LABWORK ALF LAB WORK LABWORK ALF LAB WORK ALF LAB WORK LABWORK ALF LAB WORK LABWORK ALF LAB WORK Chief Complaint LABWORK ALF LAB WORK LABWORK ALF LABWORK ALF LAB WORK LABWORK ALF LAB WORK ALF LAB WORK LABWORK ALF LAB WORK LABWORK ALF LAB WORK ALF LABWORK Chief Complaint LABWORK ALF LABWORK ALF LAB WORK LABWORK ALF LAB WORK ALF LAB WORK LABWORK ALF LAB WORK LABWORK ALF LAB WORK ALF LABWORK ALF LABWORK LABWORK ALF LAB WORK Chief Complaint ALF LAB WOR K LABWORK ALF LAB WORK ALF LAB WORK LABWORK ALF LAB WORK LABWORK ALF LAB WORK ALF LABWORK ALF LABWORK LABWORK ALF LAB WORK ALF LAB WORK Chief Complaint ALF LAB WOR K ALF LAB WORK LABWORK ALF LAB WORK LABWORK ALF LAB WORK ALF LABWORK ALF LABWORK LABWORK ALF LAB WORK ALF LAB WORK LABWORK ALF LAB WORK Chief Complaint ALF LAB WOR K LABWORK ALF LAB WORK LABWORK ALF LAB WORK ALF LABWORK ALF LABWORK LABWORK ALF LAB WORK ALF LAB WORK LABWORK ALF LAB WORK ALF LAB WORK Chief Complaint ALF LAB WOR K LABWORK ALF LAB WORK ALF LABWORK ALF LABWORK LABWORK ALF LAB WORK ALF LAB WORK LABWORK ALF LAB WORK LABWORK ALF LAB WORK ALF LAB WORK ALF LABWORK ALF LABWORK Chief Complaint LABWORK ALF LAB WORK ALF LABWORK ALF LABWORK LABWORK ALF LAB WORK ALF LAB WORK LABWORK ALF LAB WORK LABWORK ALF LAB WORK ALF LAB WORK ALF LABWORK LABWORK ALF LABWORK Chief Complaint LABWORK ALF LAB WORK ALF LAB WORK LABWORK ALF LAB WORK LABWORK ALF LAB WORK ALF LAB WORK ALF LABWORK LABWORK ALF LABWORK ALF LAB WORK Chief Complaint ALF LAB WOR K LABWORK ALF LAB WORK ALF LAB WORK ALF LABWORK LABWORK ALF LABWORK ALF LAB WORK LABWORK LABWORK LABWORK LABWORK ALF LABWORK ALF LAB WORK LABWORK LABWORK Chief Complaint LABWORK ALF LAB WORK ALF LAB WORK ALF LABWORK LABWORK ALF LABWORK ALF LAB WORK LABWORK LABWORK LABWORK LABWORK ALF LABWORK ALF LAB WORK LABWORK LABWORK ALF LABWORK Chief Complaint ALF LAB WOR K ALF LAB WORK ALF LABWORK LABWORK ALF LABWORK ALF LAB WORK LABWORK LABWORK LABWORK LABWORK ALF LABWORK ALF LAB WORK LABWORK LABWORK ALF LABWORK ALF LAB WORK Chief Complaint ALF LABWORK LABWORK ALF LABWORK ALF LAB WORK LABWORK LABWORK LABWORK LABWORK ALF LABWORK ALF LAB WORK LABWORK LABWORK ALF LABWORK ALF LAB WORK ALF LABWORK ALF LAB WORK Chief Complaint LABWORK ALF LABWORK ALF LAB WORK LABWORK LABWORK LABWORK LABWORK ALF LABWORK ALF LAB WORK LABWORK LABWORK ALF LABWORK ALF LAB WORK ALF LABWORK LABWORK ALF LAB WORK Chief Complaint LABWORK LABWORK LABWORK LABWORK ALF LABWORK ALF LAB WORK LABWORK LABWORK ALF LABWORK ALF LAB WORK ALF LABWORK LABWORK ALF LAB WORK LABWORK ALF LABWORK Chief Complaint LABWORK ALF LABWORK ALF LAB WORK LABWORK LABWORK ALF LABWORK ALF LAB WORK ALF LABWORK LABWORK ALF LAB WORK LABWORK ALF LABWORK LABWORK LABWORK Chief Complaint ALF LABWORK ALF LAB WORK LABWORK LABWORK ALF LABWORK ALF LAB WORK ALF LABWORK LABWORK ALF LAB WORK LABWORK ALF LABWORK LABWORK LABWORK LABWORK ALF LAB WORK ALF LAB WORK ALF LABWORK Chief Complaint ALF LABWORK ALF LAB WORK LABWORK LABWORK ALF LABWORK ALF LAB WORK ALF LABWORK LABWORK ALF LAB WORK LABWORK ALF LABWORK LABWORK LABWORK LABWORK ALF LAB WORK ALF LAB WORK ALF LABWORK ALF LABWORK Chief Complaint LABWORK LABWORK ALF LABWORK ALF LAB WORK ALF LABWORK LABWORK ALF LAB WORK LABWORK ALF LABWORK LABWORK LABWORK LABWORK ALF LAB WORK ALF LAB WORK ALF LABWORK ALF LABWORK ALF LAB WORK LABWORK Chief Complaint ALF LABWORK ALF LAB WORK ALF LABWORK LABWORK ALF LAB WORK LABWORK ALF LABWORK LABWORK LABWORK LABWORK ALF LAB WORK ALF LAB WORK ALF LABWORK ALF LABWORK ALF LAB WORK LABWORK ALF LABWORK Chief Complaint ALF LABWORK LABWORK ALF LAB WORK LABWORK ALF LABWORK LABWORK LABWORK LABWORK ALF LAB WORK ALF LAB WORK ALF LABWORK ALF LABWORK ALF LAB WORK LABWORK ALF LABWORK ALF LAB WORK Chief Complaint LABWORK ALF LABWORK LABWORK LABWORK LABWORK ALF LAB WORK ALF LAB WORK ALF LABWORK ALF LABWORK ALF LAB WORK LABWORK ALF LABWORK ALF LAB WORK ALF LABWORK ALF LAB WORK Chief Complaint LABWORK ALF LABWORK ALF LAB WORK ALF LABWORK ALF LAB WORK ALF LABWORK ALF LABWORK ALF LABWORK ALF LABWORK ALF LAB WORK LABWORK LABWORK ALF LABWORK Chief Complaint ALF LABWORK ALF LAB WORK ALF LABWORK ALF LABWORK ALF LABWORK ALF LABWORK ALF LAB WORK LABWORK LABWORK ALF LABWORK LABWORK ALF LAB WORK ALF LAB WORK Chief Complaint ALF LABWORK ALF LABWORK ALF LABWORK ALF LABWORK ALF LAB WORK LABWORK LABWORK ALF LABWORK LABWORK ALF LAB WORK ALF LAB WORK ALF LABWORK ALF LABWORK ALF LAB WORK ALF LAB WORK Chief Complaint ALF LABWORK ALF LABWORK ALF LABWORK ALF LAB WORK LABWORK LABWORK ALF LABWORK LABWORK ALF LAB WORK ALF LAB WORK ALF LABWORK ALF LABWORK ALF LAB WORK ALF LAB WORK Chief Complaint ALF LABWORK ALF LABWORK ALF LABWORK ALF LAB WORK LABWORK LABWORK ALF LABWORK LABWORK ALF LAB WORK ALF LAB WORK ALF LABWORK ALF LABWORK ALF LAB WORK ALF LAB WORK ALF LABWORK LABWORK Chief Complaint ALF LAB WOR K LABWORK LABWORK ALF LABWORK LABWORK ALF LAB WORK ALF LAB WORK ALF LABWORK ALF LABWORK ALF LAB WORK ALF LAB WORK ALF LABWORK LABWORK ALF LAB WORK LABWORK Chief Complaint ALF LAB WOR K LABWORK LABWORK ALF LABWORK LABWORK ALF LAB WORK ALF LAB WORK ALF LABWORK ALF LABWORK ALF LAB WORK ALF LAB WORK ALF LABWORK LABWORK ALF LAB WORK LABWORK ALF LABWORK ALF LAB WORK Chief Complaint LABWORK LABWORK ALF LABWORK LABWORK ALF LAB WORK ALF LAB WORK ALF LABWORK ALF LABWORK ALF LAB WORK ALF LAB WORK ALF LABWORK LABWORK ALF LAB WORK LABWORK ALF LABWORK ALF LAB WORK LABWORK\\ Chief Complaint LABWORK ALF LABWORK LABWORK ALF LAB WORK ALF LAB WORK ALF LABWORK ALF LABWORK ALF LAB WORK ALF LAB WORK ALF LABWORK LABWORK ALF LAB WORK LABWORK ALF LABWORK ALF LAB WORK LABWORK\\ LABWORK Chief Complaint ALF LAB WOR K ALF LAB WORK ALF LABWORK ALF LABWORK ALF LAB WORK ALF LAB WORK ALF LABWORK LABWORK ALF LAB WORK LABWORK ALF LABWORK ALF LAB WORK LABWORK\\ LABWORK ALF LAB WORK LABWORK Chief Complaint ALF LAB WOR K ALF LABWORK ALF LABWORK ALF LAB WORK ALF LAB WORK ALF LABWORK LABWORK ALF LAB WORK LABWORK ALF LABWORK ALF LAB WORK LABWORK\\ LABWORK ALF LAB WORK LABWORK LABWORK Chief Complaint ALF LABWORK ALF LABWORK ALF LAB WORK ALF LAB WORK ALF LABWORK LABWORK ALF LAB WORK LABWORK ALF LABWORK ALF LAB WORK LABWORK\\ LABWORK ALF LAB WORK LABWORK ALF LABWORK LABWORK Chief Complaint ALF LAB WOR K ALF LABWORK LABWORK ALF LAB WORK LABWORK ALF LABWORK ALF LAB WORK LABWORK\\ LABWORK ALF LAB WORK LABWORK ALF LABWORK LABWORK ALF LABWORK ALF LAB WORK LABWORK ALF LAB WORK Chief Complaint ALF LABWORK LABWORK ALF LAB WORK LABWORK ALF LABWORK ALF LAB WORK LABWORK\\ LABWORK ALF LAB WORK LABWORK ALF LABWORK LABWORK ALF LABWORK ALF LAB WORK LABWORK ALF LAB WORK LABWORK Chief Complaint ALF LAB WOR K LABWORK ALF LABWORK ALF LAB WORK LABWORK\\ LABWORK ALF LAB WORK LABWORK ALF LABWORK LABWORK ALF LABWORK ALF LAB WORK LABWORK ALF LAB WORK LABWORK LABWORK Chief Complaint ALF LAB WOR K LABWORK\\ LABWORK ALF LAB WORK LABWORK ALF LABWORK LABWORK ALF LABWORK ALF LAB WORK LABWORK ALF LAB WORK LABWORK LABWORK LABWORK LABWORK LABWORK Chief Complaint LABWORK\\ LABWORK ALF LAB WORK LABWORK ALF LABWORK LABWORK ALF LABWORK ALF LAB WORK LABWORK ALF LAB WORK LABWORK LABWORK LABWORK LABWORK LABWORK LABWORK Chief Complaint ALF LAB WOR K LABWORK ALF LABWORK LABWORK ALF LABWORK ALF LAB WORK LABWORK ALF LAB WORK LABWORK LABWORK LABWORK LABWORK LABWORK LABWORK LABWORK Chief Complaint ALF LABWORK LABWORK ALF LABWORK ALF LAB WORK LABWORK ALF LAB WORK LABWORK LABWORK LABWORK LABWORK LABWORK LABWORK LABWORK ALF LAB WORK LABWORK Chief Complaint LABWORK ALF LABWORK ALF LAB WORK LABWORK ALF LAB WORK LABWORK LABWORK LABWORK LABWORK LABWORK LABWORK LABWORK ALF LAB WORK LABWORK LABWORK LABWORK Chief Complaint LABWORK ALF LAB WORK LABWORK LABWORK LABWORK LABWORK LABWORK LABWORK LABWORK ALF LAB WORK LABWORK LABWORK LABWORK ALF LAB WORK ALF LAB WORK Chief Complaint ALF LAB WOR K LABWORK LABWORK LABWORK LABWORK LABWORK LABWORK LABWORK ALF LAB WORK LABWORK LABWORK LABWORK ALF LAB WORK ALF LAB WORK LABWORK Chief Complaint ALF LABWORK ALF LAB WORK ALF LAB WORK ALF LABWORK LABWORK ALF LAB WORK LABWORK ALF LABWORK ALF LAB WORK LABWORK\\ LABWORK ALF LAB WORK LABWORK ALF LABWORK LABWORK ALF LABWORK Chief Complaint ALF LABWORK ALF LAB WORK ALF LAB WORK ALF LABWORK LABWORK ALF LAB WORK LABWORK ALF LABWORK ALF LAB WORK LABWORK\\ LABWORK ALF LAB WORK LABWORK ALF LABWORK LABWORK ALF LABWORK ALF LAB WORK Chief Complaint Admit Date ALF LAB WORK March 11 5:00am ALF LAB WORK March 18 5:00am LABWORK March 25, 2024 5:00am LABWORK April 01, 2024 5 :00am ALF LAB WORK April 08, 2024 5:00am LABWORK April 15, 2024 5:00am LABWORK April 22, 2024 5:00am ALF LAB WORK April 29 5:00am LABWORK May 06, 2024 5: 00am ALF LAB WORK May 13, 2024 4:00am LABWORK May 20, 2024 5 :00am ALF LAB WORK May 27, 2024 5:00am LABWORK June 03, 2024 5 :00am LABWORK June 07, 2024 5 :00am ALF LAB WORK June 10 5:00am LABWORK June 17, 2024 5:00am ALF LAB WORK June 24 5:00am Chief Complaint Admit Date LABWORK April 01, 2024 5 :00am ALF LAB WORK April 08, 2024 5:00am LABWORK April 15, 2024 5:00am LABWORK April 22, 2024 5:00am ALF LAB WORK April 29 5:00am LABWORK May 06, 2024 5: 00am ALF LAB WORK May 13, 2024 4:00am LABWORK May 20, 2024 5 :00am ALF LAB WORK May 27, 2024 5:00am LABWORK June 03, 2024 5 :00am LABWORK June 07, 2024 5 :00am ALF LAB WORK June 10 5:00am LABWORK June 17, 2024 5:00am ALF LAB WORK June 24 5:00am ALF LAB WORK June 27 2:00am ALF LAB WORK July 01, 2024 4: 00am LABWORK July 08, 2024 5:0 0am ALF LAB WORK July 16, 2024 4 :00am Chief Complaint Admit Date ALF LAB WORK April 08, 2024 5:00am LABWORK April 15, 2024 5:00am LABWORK April 22, 2024 5:00am ALF LAB WORK April 29 5:00am LABWORK May 06, 2024 5: 00am ALF LAB WORK May 13, 2024 4:00am LABWORK May 20, 2024 5 :00am ALF LAB WORK May 27, 2024 5:00am LABWORK June 03, 2024 5 :00am LABWORK June 07, 2024 5 :00am ALF LAB WORK June 10 5:00am LABWORK June 17, 2024 5:00am ALF LAB WORK June 24 5:00am ALF LAB WORK June 27 2:00am ALF LAB WORK July 01, 2024 4: 00am LABWORK July 08, 2024 5:0 0am ALF LAB WORK July 15, 2024 5 :00am ALF LAB WORK July 16, 2024 4 :00am Chief Complaint Admit Date LABWORK April 15, 2024 5:00am LABWORK April 22, 2024 5:00am ALF LAB WORK April 29 5:00am LABWORK May 06, 2024 5: 00am ALF LAB WORK May 13, 2024 4:00am LABWORK May 20, 2024 5 :00am ALF LAB WORK May 27, 2024 5:00am LABWORK June 03, 2024 5 :00am LABWORK June 07, 2024 5 :00am ALF LAB WORK June 10 5:00am LABWORK June 17, 2024 5:00am ALF LAB WORK June 24 5:00am ALF LAB WORK June 27 2:00am ALF LAB WORK July 01, 2024 4: 00am LABWORK July 08, 2024 5:0 0am ALF LAB WORK July 15, 2024 5 :00am ALF LAB WORK July 16, 2024 4 :00am ALF LAB WORK July 22, 2024 5 :00am Chief Complaint Admit Date LABWORK April 22, 2024 5:00am ALF LAB WORK April 29 5:00am LABWORK May 06, 2024 5: 00am ALF LAB WORK May 13, 2024 4:00am LABWORK May 20, 2024 5 :00am ALF LAB WORK May 27, 2024 5:00am LABWORK June 03, 2024 5 :00am LABWORK June 07, 2024 5 :00am ALF LAB WORK June 10 5:00am LABWORK June 17, 2024 5:00am ALF LAB WORK June 24 5:00am ALF LAB WORK June 27 2:00am ALF LAB WORK July 01, 2024 4: 00am LABWORK July 08, 2024 5:0 0am ALF LAB WORK July 15, 2024 5 :00am ALF LAB WORK July 16, 2024 4 :00am ALF LAB WORK July 22, 2024 5 :00am LABWORK July 29, 2024 5:0 0am Chief Complaint Admit Date ALF LAB WORK May 13, 2024 4:00am LABWORK May 20, 2024 5 :00am ALF LAB WORK May 27, 2024 5:00am LABWORK June 03, 2024 5 :00am LABWORK June 07, 2024 5 :00am ALF LAB WORK June 10 5:00am LABWORK June 17, 2024 5:00am ALF LAB WORK June 24 5:00am ALF LAB WORK June 27 2:00am ALF LAB WORK July 01, 2024 4: 00am LABWORK July 08, 2024 5:0 0am ALF LAB WORK July 15, 2024 5 :00am ALF LAB WORK July 16, 2024 4 :00am ALF LAB WORK July 22, 2024 5 :00am LABWORK July 29, 2024 5:0 0am ALF LAB WORK August 05, 2024 5: 00am ALF LAB WORK August 12, 2024 5 :00am Chief Complaint Admit Date LABWORK May 20, 2024 5 :00am ALF LAB WORK May 27, 2024 5:00am LABWORK June 03, 2024 5 :00am LABWORK June 07, 2024 5 :00am ALF LAB WORK June 10 5:00am LABWORK June 17, 2024 5:00am ALF LAB WORK June 24 5:00am ALF LAB WORK June 27 2:00am ALF LAB WORK July 01, 2024 4: 00am LABWORK July 08, 2024 5:0 0am ALF LAB WORK July 15, 2024 5 :00am ALF LAB WORK July 16, 2024 4 :00am ALF LAB WORK July 22, 2024 5 :00am LABWORK July 29, 2024 5:0 0am ALF LAB WORK August 05, 2024 5: 00am ALF LAB WORK August 12, 2024 5 :00am LABWORK August 26, 2024 5:0 0am Chief Complaint Admit Date LABWORK June 03, 2024 5 :00am LABWORK June 07, 2024 5 :00am ALF LAB WORK June 10 5:00am LABWORK June 17, 2024 5:00am ALF LAB WORK June 24 5:00am ALF LAB WORK June 27 2:00am ALF LAB WORK July 01, 2024 4: 00am LABWORK July 08, 2024 5:0 0am ALF LAB WORK July 15, 2024 5 :00am ALF LAB WORK July 16, 2024 4 :00am ALF LAB WORK July 22, 2024 5 :00am LABWORK July 29, 2024 5:0 0am ALF LAB WORK August 05, 2024 5: 00am ALF LAB WORK August 12, 2024 5 :00am ALF LAB WORK August 19, 2024 4 :00am ALF LAB WORK August 23, 2024 5 :00am LABWORK August 26, 2024 5:0 0am LABWORK September 09, 2024 5:00a m Chief Complaint Admit Date LABWORK June 07, 2024 5 :00am ALF LAB WORK June 10 5:00am LABWORK June 17, 2024 5:00am ALF LAB WORK June 24 5:00am ALF LAB WORK June 27 2:00am ALF LAB WORK July 01, 2024 4: 00am LABWORK July 08, 2024 5:0 0am ALF LAB WORK July 15, 2024 5 :00am ALF LAB WORK July 16, 2024 4 :00am ALF LAB WORK July 22, 2024 5 :00am LABWORK July 29, 2024 5:0 0am ALF LAB WORK August 05, 2024 5: 00am ALF LAB WORK August 12, 2024 5 :00am ALF LAB WORK August 19, 2024 4 :00am ALF LAB WORK August 23, 2024 5 :00am LABWORK August 26, 2024 5:0 0am ALF LAB WORK September 02, 2024 4:00 am LABWORK September 09, 2024 5:00a m LABWORK September 11, 2024 5:00a m Chief Complaint Admit Date ALF LAB WORK July 01, 2024 4: 00am LABWORK July 08, 2024 5:0 0am ALF LAB WORK July 15, 2024 5 :00am ALF LAB WORK July 16, 2024 4 :00am ALF LAB WORK July 22, 2024 5 :00am LABWORK July 29, 2024 5:0 0am ALF LAB WORK August 05, 2024 5: 00am ALF LAB WORK August 12, 2024 5 :00am ALF LAB WORK August 19, 2024 4 :00am ALF LAB WORK August 23, 2024 5 :00am LABWORK August 26, 2024 5:0 0am ALF LAB WORK September 02, 2024 4:00 am LABWORK September 09, 2024 5:00a m LABWORK September 11, 2024 5:00a m ALF LAB WORK September 16, 2024 5:0 0am ALF LAB WORK September 24, 2024 4:0 0am Additional Source Comments (unrecognized sect ion and content) No Status Records FoundNo Status Records FoundNo Status Records FoundNo Status Records FoundNo Status Records FoundNo Status Records Found INFORMATION SOURCE (unrecogn ized section and content) DATE CREATED AUTHOR 09/04/2018 [facility] DATE CREATED AUTHOR AUTHOR'S ORGANIZ ATION 10/06/2018 [facility] DATE CREATED AUTHOR AUTHOR'S ORGANIZ ATION 03/26/2021 [facility] DATE CREATED AUTHOR AUTHOR'S ORGANIZ ATION 05/21/2021 [facility] DATE CREATED AUTHOR AUTHOR'S ORGANIZ ATION 06/28/2024 [facility] DATE CREATED AUTHOR AUTHOR'S ORGANIZ ATION [facility] Source Comments (unrecognize d section and content) In the event this informatio n is protected by the Federal Confidentiality of Alcohol and Drug Abuse Patient Records regulations: The Federal rules restrict any use of the information to criminally investigate or prosecute any alcohol or drug abuse patient.[facility] Reason for Visit (unrecogniz ed section and [...] Per NG tube, DAILY, First dose on 11/20/21 at 0900 0754 (Given - Provider: Tra [...] Tra Pearl RN)2207 (Stopped - Provider: Nancy Solorio, KUSHAL)2244 (New Bag - Provider: Nancy Solorio, KUSHAL) 0401 (Stopped - Provider: Nancy Solorio RN)0639 (New Bag - Provider: Nancy Solorio, KUSHLA)1140 (Stopped - Provider: Jovana Armstrong, KUSHAL)1448 (New Bag - Provider: Jovana Armstrong, KUSHAL)1935 (Stopped - Provider: Nancy Solorio, KUSHAL)2149 (New Bag - Provider: Nancy Solorio, KUSHAL) 0200 (Stopped - Provider: Nancy Solorio, KUSHAL)0640 (New Bag - Provider: Nancy Solorio, KUSHAL)1040 (Stopped - Provider: Sandeep Thompson, KUSHAL) cefepime (MAXIPIME) 2000 mg IVPB minibag 2,000 [...] RN)2205 (Given - Provider: Nancy Solorio RN) 09 (Given - Provider: Jovana Armstrong RN) cloZAPine (CLOZARIL) tablet 75 mg 75 mg, Per G Tube, 2 TIMES DAILY, First dose (after last modification) on Mon03/23/21 at 2100, Avoid changes in caffeine intake. 214 (Given - Provider: Nancy Solorio RN) 09 (Given - Provider: Sandeep Thompson, KUSHAL)2099 (Due) docusate (COLACE) 50 MG/5ML liquid 100 mg 100 mg, Per NG tube, 2 TIMES DAILY, First dose on Mon03/19/21 at 2323 0754 (Given - Provider: Tra Pearl RN)220 (Given - Provider: Nancy Solorio RN) 0921 (Given - Provider: Jovana Armstrong RN)2148 (Given - Provider: Nancy Solorio RN) 09 (Given - Provider: Sandeep Thompson RN)2099 (Due) enoxaparin (LOVENOX) injection 30 mg 30 mg, SubCUTAneous, 2 TIMES DAILY, First dose on Mon03/19/21 at 2323, Pharmacy to dose if renal insufficiency present. 0753 (Given - Provider: Tra Pearl RN)220 (Given - Provider: Nancy Solorio RN) 0940 (Given - Provider: Jovana Armstrong RN)2148 (Given - Provider: Nancy Solorio RN) 09 (Given - Provider: Sandeep Thompson RN)2100 (Due) finasteride (PROSCAR) tablet 5 mg 5 mg, Oral, DAILY, First dose on 03/20/21 at 0900, Women should not handle crushed or broken finasteride tablets when they are or may potentially be , due to potential risk to the fetus. 0754 (Given - Provider: Tra Pearl RN) 0914 (Given - Provider: Jovana Armstrong, KUSHAL) 0914 (Given - Provider: Sandeep Thompson RN) ipratropium-albuterol (DUONEB) nebulizer solution 1 ampule 1 ampule, Inhalation, EVERY 4 HOURS WHILE AWAKE, First dose on 03/20/21 at 1200 0953 (Given - Provider: Amelie Taylor [employer])1356 (Given - Provider: Amelie Taylor [employer])1648 (Given - Provider: Amelie Taylor [employer])2212 (Given - Provider: Claire Lagos [facility]) 0841 (Given - Provider: Ana Cabrera [employer])1213 (Given - Provider: Ana Cabrera [employer])1622 (Given - Provider: Ana Cabrera [employer])2037 (Given - Provider: Perla Loyola [facility]) 1020 (Given - Provider: Gabriel Soares [employer])1200 (Due)1600 (Due)2000 (Due) lansoprazole (PREVACID SOLUTAB) disintegrating [...] 2323 1003 (Given - Provider: Amelie Taylor [employer])2215 (Given - Provider: Claire Lagos [employer]) 0841 (Given - Provider: Ana Cabrera [employer])2051 (Given - Provider: Perla Loyola [employer]) 1200 (Due - Provider: Gabriel Soares [employer])2100 (Due) sodium chloride flush 0.9 % injection 5-40 mL 5-40 mL, IntraVENous, EVERY 12 HOURS SCHEDULED (2 times per day), First dose on Mon03/20/21 at 0900, For Line Patency: Peripheral IV [...] Solorio RN) 0918 (Given - Provider: Sandeep Thompson RN)2100 (Due) tamsulosin (FLOMAX) capsule 0.4 mg 0.4 mg, Oral, DAILY, First dose on 03/20/21 at 0900, Do not crush or break. 0754 (Given - Provider: Tra Pearl, KUSHAL) 0914 (Given - Provider: Jovana Armstrong, RN) 0914 (Given - Provider: Sandeep Thompson, RN) thiamine tablet 100 mg 100 mg, Oral, DAILY, First dose on 03/20/21 at 0900 0754 (Given - Provider: Tra Pearl, KUSHAL) 1055 (Given - Provider: Jovana Armstrong, KUSHAL) 0914 (Given - Provider: Sandeep Thompson, RN) vancomycin (VANCOCIN) 1,250 mg in dextrose 5 [...] Dates Renard Burgos GILL Attending Provider Active Team Status: Inactive Member Role Status Dates Renard Burgos GILL Attending Provider, Referring Provi gelacio Active Team Status: Active Member Role Status Dates Renard Burgos OLS Attending Provider Active Team Status: Active Member Role Status Dates Renard Burgos GILL Attending Provider, Referring Provi gelacio Active Team Status: Inactive Member Role Status Dates Renard Aliriohola Attending Provider Active Team Status: Inactive Member Role Status Dates Renard Shellierustam Attending Provider, Referring Provider Active Team Status: Active Member Role Status Dates Renard Burgos Attending Provider Active Scheduling Representative Relationship Specialty Start Date End Date Renard Burgos [address] [place] [address] PCP - General Internal Medicine 10/16/23 Scheduling Representative Relationship Specialty Start Date End Date Renard Burgos [address] [place] [id number] PCP - General Internal Medicine 10/16/23 Scheduling Representative Relationship Specialty Start Date End Date Renard Burgos [address] [place] [address] PCP - General Internal Medicine 10/16/23 Scheduling Representative Relationship Specialty Start Date End Date AlirioholaRenard [address] [place] [phone] PCP - General Internal Medicine 10/16/23 Team [...] Renard GARLADN Attending Provider Active Sta rt: June 17, [...] Provider Active Sta rt: September 09, 2024 Scheduling Representative Relationship Specialty Start Date End Date Renard Burgos [address] [facility] [address] [place] [id number] PCP - General Internal Medicine 10/16/23 Team [...] September 02, 2024 End: September 02, 2024 Team Status: Inactive Member Role/Relationship Status Dates Renard GARLAND Attending Provider Active Sta rt: July 01, 2024 End: July 01, 2024 Renard GARLAND Referring Provider Active Sta rt: July 01, 2024 End: July 01, 2024 Team Status: Inactive Member Role/Relationship Status Dates Renard GARLAND Attending Provider Active Sta rt: July 08, 2024 End: July 08, 2024 Team Status: Inactive Member Role/Relationship Status Dates Renard GARLAND Attending Provider Active Sta rt: July 15, 2024 End: July 15, 2024 Team Status: Inactive Member Role/Relationship Status Dates Renard GARLAND Attending Provider Active Sta rt: July 16, 2024 End: July 16, 2024 Renard GARLAND Referring Provider Active Sta rt: July 16, 2024 End: July 16, 2024 Team Status: Inactive Member Role/Relationship Status Dates Renard GARLAND Attending Provider Active Sta rt: July 22, 2024 End: July 22, 2024 Team Status: Inactive Member Role/Relationship Status Dates Renard GARLAND Attending Provider Active Sta rt: July 29, 2024 End: July 29, 2024 Team Status: Inactive Member Role/Relationship Status Dates Renard GARLAND Attending Provider Active Sta rt: August 05, 2024 End: August 05, 2024 Team Status: Inactive Member Role/Relationship Status Dates Renard GARLAND Attending Provider Active Sta rt: August 12, 2024 End: August 12, 2024 Team Status: Inactive Member Role/Relationship Status Dates Renard GARLAND Attending Provider Active Sta rt: August 19, 2024 End: August 19, 2024 Renard GARLAND Referring Provider Active Sta rt: August 19, 2024 End: August 19, 2024 Team Status: Inactive Member Role/Relationship Status Dates Renard GARLAND Attending Provider Active Sta rt: August 23, 2024 End: August 23, 2024 Team Status: Inactive Member Role/Relationship Status Dates Renrad GARLAND Attending Provider Active Sta rt: August 26, 2024 End: August 26, 2024 Team Status: Inactive Member Role/Relationship Status Dates Renard GARLAND Attending Provider Active Sta rt: September 02, 2024 End: September 02, 2024 Renard GARLAND Referring Provider Active Sta rt: September 02, 2024 End: September 02, 2024 Team Status: Inactive Member Role/Relationship Status Dates Renard Burgos GILL Attending Provider Active Sta rt: September 09, 2024 End: September 09, 2024 Team Status: Inactive Member Role/Relationship Status Dates Renard Aliriohola GARLAND Attending Provider Active Sta rt: September 11, 2024 End: September 11, 2024 Team Status: Inactive Member Role/Relationship Status Dates Renard Shellierustam GARLAND Attending Provider Active Sta rt: September 16, 2024 End: September 16, 2024 Team Status: Active Member Role/Relationship Status Dates Renard Shellierustam GARLAND Attending Provider Active Sta rt: September 24, 2024 Renard GARLAND Referring Provider Active Sta rt: September 24, 2024 Team Status: Active Member Role/Relationship Status Dates Renard GARLAND Attending Provider Active Sta rt: September 30, 2024 Team Status: Active Member Role/Relationship Status Dates Renard Aliriohola GARLAND Attending Provider Active Sta rt: October 07, 2024 Team Status: Active Member Role/Relationship Status Dates Renard GARLAND Attending Provider Active Sta rt: October 14, 2024 Team Status: Active Member Role/Relationship Status Dates Renard Aliriohola GARLAND Attending Provider Active Sta rt: October 21, 2024 FOR RECORDS PERTAINING TO PATIENTS WHO [...] BE BASED ON THE PRIMARY CLINICAL RECORDS. [facility] [employer] provides no warranty or guarantee of the accuracy or completeness of information in this document.
[2024-11-18 08:51] LABS: Hematocrit 41.6 % (40-54); Hemoglobin 13.6 g/dL (13.0-16.5); Immature Granulocytes Count 0.040 X10^3/uL (0.0-0.0); Mean Corp Hgb Conc 32.7 g/dL (32-36); Mean Corpuscular Volume 92.7 fL (80-94); Mean Platelet Vol. 11.0 fl (6.2-12.0); NRBC Flagged by Analyzer 0 % (0-5); Platelet Count 177 K/mm3 (150-450); RBC Distribution Width CV 13.2 % (11.6-14.6); RBC Distribution Width SD 44.9 fl (35.1-43.9); Red Blood Count 4.49 M/mm3 (4.6-6.2); White Blood Count 10.3 K/mm3 (4.4-11.0)
== END ==
LOC: OLS.SANC 05:00
PROVIDERS: Visit Provider Internal Medicine
DX: Z79.899 Other long term (current) drug therapy (principal)
CPT/HCPCS: 36415; 85025

== ENCOUNTER → 2024-11-25 | Outpatient (REF) | payer MEDICAID, SELFPAY ==
[2024-11-25 09:00] LABS: Hematocrit 42.1 % (40-54); Hemoglobin 13.8 g/dL (13.0-16.5); Immature Granulocytes Count 0.040 X10^3/uL (0.0-0.0); Mean Corp Hgb Conc 32.8 g/dL (32-36); Mean Corpuscular Volume 92.1 fL (80-94); Mean Platelet Vol. 11.7 fl (6.2-12.0); NRBC Flagged by Analyzer 0 % (0-5); Platelet Count 201 K/mm3 (150-450); RBC Distribution Width CV 12.9 % (11.6-14.6); RBC Distribution Width SD 43.7 fl (35.1-43.9); Red Blood Count 4.57 M/mm3 (4.6-6.2); White Blood Count 10.4 K/mm3 (4.4-11.0)
== END | disposition home or self-care (01) ==
LOC: OLS.SANC 05:00
PROVIDERS: Visit Provider Internal Medicine
DX: F20.9 Schizophrenia, unspecified (principal); Z79.899 Other long term (current) drug therapy
CPT/HCPCS: 36415; 85025

== ENCOUNTER → 2024-12-02 | Outpatient (REF) | payer MEDICAID, SELFPAY ==
[2024-12-02 09:29] LABS: Hematocrit 41.4 % (40-54); Hemoglobin 13.2 g/dL (13.0-16.5); Immature Granulocytes Count 0.030 X10^3/uL (0.0-0.0); Mean Corp Hgb Conc 31.9 g/dL (32-36); Mean Corpuscular Volume 94.5 fL (80-94); Mean Platelet Vol. 11.2 fl (6.2-12.0); NRBC Flagged by Analyzer 0 % (0-5); Platelet Count 182 K/mm3 (150-450); RBC Distribution Width CV 13.2 % (11.6-14.6); RBC Distribution Width SD 45.5 fl (35.1-43.9); Red Blood Count 4.38 M/mm3 (4.6-6.2); White Blood Count 9.1 K/mm3 (4.4-11.0)
== END | disposition home or self-care (01) ==
LOC: OLS.SANC 05:00
PROVIDERS: Visit Provider Internal Medicine
DX: F20.9 Schizophrenia, unspecified (principal); Z79.899 Other long term (current) drug therapy
CPT/HCPCS: 36415; 85025

== ENCOUNTER → 2024-12-09 04:00 | Outpatient (REF) | payer MEDICAID, SELFPAY ==
[2024-12-09 10:35] LABS: Hematocrit 40.3 % (40-54); Hemoglobin 12.8 g/dL (13.0-16.5); Immature Granulocytes Count 0.030 X10^3/uL (0.0-0.0); Mean Corp Hgb Conc 31.8 g/dL (32-36); Mean Corpuscular Volume 93.1 fL (80-94); Mean Platelet Vol. 11.5 fl (6.2-12.0); NRBC Flagged by Analyzer 0 % (0-5); Platelet Count 194 K/mm3 (150-450); RBC Distribution Width CV 13.0 % (11.6-14.6); RBC Distribution Width SD 44.3 fl (35.1-43.9); Red Blood Count 4.33 M/mm3 (4.6-6.2); White Blood Count 7.9 K/mm3 (4.4-11.0)
== END ==
LOC: OLS.SANC 04:00
PROVIDERS: Referring Provider Internal Medicine; Visit Provider Internal Medicine
DX: K21.00 Gastro-esophageal reflux disease with esophagitis, without bleeding (principal)
CPT/HCPCS: 36415; 85025

== ENCOUNTER → 2024-12-16 04:00 | Outpatient (REF) | payer MEDICAID, SELFPAY ==
[2024-12-16 09:01] LABS: Hematocrit 38.7 % (40-54); Hemoglobin 12.8 g/dL (13.0-16.5); Immature Granulocytes Count 0.020 X10^3/uL (0.0-0.0); Mean Corp Hgb Conc 33.1 g/dL (32-36); Mean Corpuscular Volume 91.7 fL (80-94); Mean Platelet Vol. 11.3 fl (6.2-12.0); NRBC Flagged by Analyzer 0 % (0-5); Platelet Count 202 K/mm3 (150-450); RBC Distribution Width CV 13.2 % (11.6-14.6); RBC Distribution Width SD 44.4 fl (35.1-43.9); Red Blood Count 4.22 M/mm3 (4.6-6.2); White Blood Count 7.0 K/mm3 (4.4-11.0)
== END ==
LOC: OLS.SANC 04:00
PROVIDERS: Referring Provider Internal Medicine; Visit Provider Internal Medicine
DX: Z79.899 Other long term (current) drug therapy (principal)
CPT/HCPCS: 85025

== ENCOUNTER → 2024-12-23 | Outpatient (REF) | payer MEDICAID, SELFPAY ==
--- OUTSIDE RECORDS SUMMARY | 2024-12-23 04:33 | XMS RPT_ITS | CCD ---
Author Organization [facility] Care Team Providers Care [employer] Worker Name Role Phone JORDAN OREILLY Attending Unavailable PROVIDER, UNKNOWN Referring Unavailable Nathanael Cazares Primary Care Unavailable PROVIDER, UNKNOWN Referring Unavailable Nathanael Cazares Primary Care Unavailable Jaime Lindquist Attending Unavailable Unavailable Primary Care Provider UnavailBethany Navarrete Primary Care Provider Jarvis Kendall MD Unavailable [phone] Bethany Russell MD Primary Care Provider Unavailable [...] Renard Attending Provider Unavailab le Katsaros OLS, Renard Attending Provider Unavailab le Katsaros OLS, Renard Attending Provider Unavailab le Katsaros OLS, Renard Referring Provider Unavailab le Katsaros OLS, Renard Attending [...] OLS, Renard Referring Unavailable Katsaros OLS, Renard Referring Unavailable Katsaros [...] Attending Unavailable Katsaros OLS, Renard Attending Unavailable Loretta GARLAND, Renard Attending Unavailable Loretta GARLAND, Renard Attending Unavailable Loretta GARLAND, Renard Attending Unavailable Loretta GARLAND, Renard Attending Unavailable Loretta GARLAND, Renard Attending Unavailable Renard Jackson Referring Unavailable Loretta GARLAND, Renard Attending Unavailable Loretta GARLAND, Renard Attending Unavailable Loretta GARLAND, Renard Attending Unavailable Loretta GARLAND, Renard Attending Unavailable Loretta GARLAND, Renard Attending Unavailable Medications Current Medications Medication Drug Class(es) Dates Sig (Normalized) Sig (Original) Acetaminophen (18 sources) Start: 03-20-2021 acetaminophen (TYLENOL) tablet 650 mg Start: 05-22-2019 ACETAMINOPHEN 325 MG TABS 2 tablet via peg tube as needed ACETAMINOPHEN [id number] Ana Stevenson PHOTOGRAPHIC HAND DEVELOPER albuterol 0.83 mg/ml inhalation solution (1 source) beta2-Adrenergic Agonist Start: 03-19-2021 albut veronica (PROVENTIL) nebulizer solution 2.5 mg albuterol 0.833 mg/ml / ipratropium bromide 0.167 mg/ml inhalation solution (18 sources) Anticholinergic, beta2-Adrenergic Agonist Start: 03-20-2021 ipratropium-alb utero l (DUONEB) nebulizer solution 1 ampule Start: 05-22-2019 IPRATROPIUM-AL BUTEROL 0.5-2.5 (3) MG/3ML SOLN 3ml via nebulizer every 4 hours as needed IPRATROPIUM-ALBUTEROL [id number] Ana Stevenson PHOTOGRAPHIC HAND DEVELOPER Start: 08-22-2018 take 3 mL by inhalat ion every four hours ipratropium-albuterol (DUONEB) 0.5-2.5 (3) MG/3ML SOLN nebulizer solution Inhale 3 mLs into the lungs every 4 hours 360 mL 0 08/22/2018 Active aspirin 81 mg chewable tablet (9 sources) Platelet Aggregation Inhibitor, Nonsteroidal Anti-inflammatory Drug Start: 05-22-2019 ASPIRIN ADULT LOW STRENGTH 81 MG CHEW one tablet via peg tube daily ASPIRIN [id number] Ana Stevenson PHOTOGRAPHIC HAND DEVELOPER Start: 08-23-2018 aspirin 81 MG chewable tablet 1 tablet by Per NG tube route daily 30 tablet 3 08/23/2018 Active atorvastatin 40 mg oral tablet (9 sources) HMG-CoA Reductase Inhibitor Start: 05-22-2019 ATORVASTATIN CALCIUM 40 MG TABS one tablet via peg tube daily ATORVASTATIN CALCIUM [id number] [facility] Start: 08-22-2018 atorvastatin ( LIPITOR) 40 MG tablet 1 tablet by Per NG tube route nightly 30 tablet 3 08/22/2018 Active castor oil 0.788 mg/mg / vincentian balsam 0.087 mg/mg topical ointment (7 sources) Standardized Chemical Allergen Start: 08-22-2018 Balsam [place] (VENELEX) OINT ointment Apply topically [...] 250mg via peg tube twice daily CLOZAPINE [id number] [facility] Start: 08-22-2018 cloZAPine (AILYN ZARIL) 100 [...] via peg tube twice daily DOCUSATE SODIUM [id number] [facility] Start: 08-22-2018 docusate (COLA CE) 50 MG/5ML liquid 10 mLs by Per NG tube route 2 times daily 0 08/22/2018 Active take 1 capsule by [facility] twice daily docusate sodium (Colace) 100 MG [...] one tablet via peg tube nightly [facility] [id number] [facility]: 08-22-2018 melatonin 3 MG TABS tablet [...] needed. 0 08/23/2018 Active polyethylene glycol 3350 17140 mg powder for oral solution (1 source) [...] Sig (Normalized) Sig (Original) barium sulfate (Varibar [place], Varibar Honey) 40 % suspension 5 mL [...] SUPP every 24 hours as needed BISACODYL [id number] Ana Diesch PHOTOGRAPHIC HAND DEVELOPER Start: 05-22-2019 BISACODYL EC 5 MG TBEC one tablet via peg tube daily as needed BISACODYL [id number] Ana Diesch PHOTOGRAPHIC HAND DEVELOPER chlorhexidine gluconate 1.2 mg/ml mouthwash (10 sources) Start: 05-22-2019 PERIDEX 0.12 % SOLN 15ml twice daily CHLORHEXIDINE GLUCONATE [id number] Ana Diesch PHOTOGRAPHIC HAND DEVELOPER chlorhexidine (P eridex) 0.12 % solution Use 15 mL in the mouth or throat if needed for wound care. Active cholecalciferol 1000 unt oral tablet (16 sources) Vitamin D Start: 05-22-2019 VITAMIN D3 25 MCG (1000 UT) TABS one tablet via peg tube daily CHOLECALCIFEROL [id number] Ana Stevenson LPN cholecalciferol (SM Vitamin D3) 25 MCG (1000 UT) tablet Take 1,000 Units by mouth daily. Active dextromethorphan hydrobromide 2 mg/ml / guaiFENesin 20 mg/ml oral solution (1 source) Uncompetitive R-lyakni-N-aspartate Receptor Antagonist, Sigma-1 Agonist Start: 05-22-2019 ROBITUSSIN PEAK COLD DM SYRP 5ml via peg tube every 4 hours as needed for cough DEXTROMETHORPHAN-GUAIFENESIN SYRP [id number] Ana Stevenson LPN magnesium hydroxide 240 mg/ml oral suspension (1 source) Start: 05-22-2019 MILK OF MAGNESIA CONCENTRATE SUSP 30ml via peg tube every 24 hours MAGNESIUM HYDROXIDE SUSP [id number] Ana Stevenson LPN methylPREDNISolone 40 mg injection (2 sources) Corticosteroid Start: 03-20-2021 End: 03-24-2021 methylPREDNISolone sodium (SOLU-MEDROL) injection 40 mg MULTIPLE VITAMINS-MINERALS (1 source) Start: 05-22-2019 MENS MULTIVITAMIN TABS one tablet via peg tube daily MULTIPLE VITAMINS-MINERALS [id number] Ana Stevenson LPN POLYETHYLENE GLYCOL 1450 (1 source) Start: 05-22-2019 POLYETHYLENE GLYCOL 1450 POW D 17 grams via peg tube twice daily POLYETHYLENE GLYCOL 1450 [id number] Ana Stevneson LPN SENNOSIDES-DOCUSATE SODIUM (1 source) Start: 05-22-2019 SENNA PLUS 8.6-50 MG TABS on e tablet via peg tube daily SENNOSIDES-DOCUSATE SODIUM [id number] Ana Stevenson LPN 50 ml sodium chloride [...] region, stage 2] Onset: 9 08-09-2018 Chronic Conduction disorders (3 sources) Long QT syndrome; Translations: [Prolonged QT interval] Onset: 9 08-15-2018 Chronic Deficiency and other anemia (2 sources) Anemia, unspecified; Translations: [Anemia, unspecified] Onset: 9 Episodic Diabetes mellitus without complication (2 sources) Hyperglycemia, unspecified; Translations: [Hyperglycemia, unspecified] Onset: 9 Episodic Disorders of lipid metabolism (2 sources) Hyperlipidemia, unspecified; Translations: [Hyperlipidemia, unspecified] Onset: 4 Chronic Esophageal disorders (1 source) Esophageal disorders; Translations: [Gastro-esophageal reflux disease with esophagitis, without bleeding] Onset: 5 External cause codes: Unspecified (2 sources) Nosocomial [...] Onset: 9 07-11-2018 Other aftercare (2 sources) correction (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; Translations: [bed bug exterminator (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] Onset: 9 Episodic Other aftercare (2 sources) Other emt intermediate (current) drug therapy; Translations: [Other emt intermediate (current) drug therapy] Onset: 5 Episodic Other [...] [Chronic cough] Onset: 5 06-24-2024 Episodic Other nutritional; endocrine; and metabolic disorders (2 sources) Hypermagnesemia; Translations: [Hypermagnesemia] Onset: 9 Chronic Other nutritional; endocrine; and metabolic disorders (2 sources) Overweight; Translations: [Overweight] Onset: Chronic Other nutritional; endocrine; and metabolic disorders [...] and grafts, initial encounter] Onset: 9 Episodic Complications of surgical procedures or medical care (6 sources) Gastrostomy infection; Translations: [Malfunction of gastrostomy tube] Onset: 9 Episodic Conduction disorders (17 sources) [...] 9 07-23-2018 Episodic Other aftercare (1 source) bed bug exterminator (current) use of antibiotics; Translations: [correction (current) use of antibiotics] Onset: 5 Episodic Other aftercare (1 source) bed bug exterminator (current) use of 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; Translations: [bed bug exterminator (current) use of 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] Onset: 5 Episodic [...] unspecified; Translations: [Dyspnea, unspecified] Onset: 4 Episodic Other nervous system disorders (1 source) Unspecified lack of coordination; Translations: [Unspecified lack of coordination] Onset: 5 Episodic Pleurisy; pneumothorax; pulmonary collapse (20 sources) [...] Interpretation Reference Range Facility CBC W/Diff, Automatedon 11-29 Absolute Lymph 2.15 X10 3/uL Normal 0.83-4.51 [facility] Comment on above: Order Comment: 109.1 Performed By: #### L 100.0100 ####[facility] [address] [place], [address] Absolute Neut 4.1 X10 3/uL Normal 2.0-7.7 [facility] Comment on above: Order Comment: 109.1 Performed By: #### L 100.0100 ####[facility] [address] [place], [address] Basophils/100 WBC (Bld) 0.7 % Normal 0-1 [facility] Comment on above: Order Comment: 109.1 Performed By: #### L 100.0100 ####[facility] [address] [place], [address] Eosinophils/100 WBC (Bld) 0.9 % Normal 0-5 [facility] Comment on above: Order Comment: 109.1 Performed By: #### L 100.0100 ####[facility] [address] [place], [address] Erythrocyte distribution width (RBC) [Ratio] 13.2 % Normal 11.6-14.6 [facility] Comment on above: Order Comment: 109.1 Performed By: #### L 100.0100 ####[facility] [address] [place], [address] Hematocrit (Bld) [Volume fraction] 38.7 % Low 40-54 [facility] Comment on above: Order Comment: 109.1 Performed By: #### L 100.0100 ####[facility] [address] [place], [address] Hemoglobin (Bld) [Mass/Vol] 12.8 g/dL Low 13.0-16.5 [facility] Comment on above: Order Comment: 109.1 Performed By: #### L 100.0100 ####[facility] [address] [place], [address] IG% 0.300 Normal 0.0-0.9 [facility] Comment on above: Order Comment: 109.1 Result Comment: IG% - Immature Granulocytes (promyelocytes, myelocytes andmetamyelocytes) > 1% indicates that a LEFT SHIFT is Present. Performed By: #### L 100.0100 ####[facility] [address] [place], [address] Lymphocytes/100 WBC (Bld) 30.7 % Normal 19-41 [facility] Comment on above: Order Comment: 109.1 Performed By: #### L 100.0100 ####[facility] [address] [place], [address] MCH (RBC) [Entitic mass] 30.3 pg Normal 27.0-32.0 [facility] Comment on above: Order Comment: 109.1 Performed By: #### L 100.0100 ####[facility] [address] [place], [address] MCHC (RBC) [Mass/Vol] 33.1 g/dL Normal 32-36 [facility] Comment on above: Order Comment: 109.1 Performed By: #### L 100.0100 ####[facility] [address] [place], [address] MCV (RBC) [Entitic vol] 91.7 fL Normal 80-94 [facility] Comment on above: Order Comment: 109.1 Performed By: #### L 100.0100 ####[facility] [address] [place], [address] Monocytes/100 WBC (Bld) 8.6 % Normal 0-10 [facility] Comment on above: Order Comment: 109.1 Performed By: #### L 100.0100 ####[facility] [address] [place], [address] Neutrophils/100 WBC (Bld) 58.8 % Normal 47-70 [facility] Comment on above: Order Comment: 109.1 Performed By: #### L 100.0100 ####[facility] [address] [place], [address] Nucleated RBC (Bld) [#/Vol] 0 10*3/uL Normal 0-5 [facility] Comment on above: Order Comment: 109.1 Performed By: #### L 100.0100 ####[facility] [address] [place], [address] Platelet mean volume (Bld) [Entitic vol] 11.3 fL Normal 6.2-12.0 [facility] Comment on above: Order Comment: 109.1 Performed By: #### L 100.0100 ####[facility] [address] [place], [address] Platelets (Bld) [#/Vol] 202 10*3/uL Normal 150-450 [facility] Comment on above: Order Comment: 109.1 Performed By: #### L 100.0100 ####[facility] [address] [place], [address] RBC (Bld) [#/Vol] 4.22 10*6/uL Low 4.6-6.2 [facility] Comment on above: Order Comment: 109.1 Performed By: #### L 100.0100 ####[facility] [address] [place], [address] RDW SD 44.4 fl High 35.1-43.9 [facility] Comment on above: Order Comment: 109.1 Performed By: #### L 100.0100 ####[facility] [address] [place], [address] WBC (Bld) [#/Vol] 7.0 10*3/uL Normal 4.4-11.0 [facility] Comment on above: Order Comment: 109.1 Performed By: #### L 100.0100 ####[facility] [address] [place], [address] CBC W/Diff, Automatedon 11-29 Absolute Lymph 2.30 X10 3/uL Normal 0.83-4.51 [facility] Comment on above: Order Comment: 109.1 Performed By: #### L 100.0100 ####[facility] [address] [place], [address] Absolute Neut 4.8 X10 3/uL Normal 2.0-7.7 [facility] Comment on above: Order Comment: 109.1 Performed By: #### L 100.0100 ####[facility] [address] [place], [address] Basophils/100 WBC (Bld) 0.5 % Normal 0-1 [facility] Comment on above: Order Comment: 109.1 Performed By: #### L 100.0100 ####[facility] [address] [place], [address] Eosinophils/100 WBC (Bld) 1.0 % Normal 0-5 [facility] Comment on above: Order Comment: 109.1 Performed By: #### L 100.0100 ####[facility] [address] [place], [address] Erythrocyte distribution width (RBC) [Ratio] 13.0 % Normal 11.6-14.6 [facility] Comment on above: Order Comment: 109.1 Performed By: #### L 100.0100 ####[facility] [address] [place], [address] Hematocrit (Bld) [Volume fraction] 40.3 % Normal 40-54 [facility] Comment on above: Order Comment: 109.1 Performed By: #### L 100.0100 ####[facility] [address] [place], [address] Hemoglobin (Bld) [Mass/Vol] 12.8 g/dL Low 13.0-16.5 [facility] Comment on above: Order Comment: 109.1 Performed By: #### L 100.0100 ####[facility] [address] [place], [address] IG% 0.400 Normal 0.0-0.9 [facility] Comment on above: Order Comment: 109.1 Result Comment: IG% - Immature Granulocytes (promyelocytes, myelocytes andmetamyelocytes) > 1% indicates that a LEFT SHIFT is Present. Performed By: #### L 100.0100 ####[facility] [address] [place], [address] Lymphocytes/100 WBC (Bld) 29.2 % Normal 19-41 [facility] Comment on above: Order Comment: 109.1 Performed By: #### L 100.0100 ####[facility] [address] [place], [address] MCH (RBC) [Entitic mass] 29.6 pg Normal 27.0-32.0 [facility] Comment on above: Order Comment: 109.1 Performed By: #### L 100.0100 ####[facility] [address] [place], [address] MCHC (RBC) [Mass/Vol] 31.8 g/dL Low 32-36 [facility] Comment on above: Order Comment: 109.1 Performed By: #### L 100.0100 ####[facility] [address] [place], [address] MCV (RBC) [Entitic vol] 93.1 fL Normal 80-94 [facility] Comment on above: Order Comment: 109.1 Performed By: #### L 100.0100 ####[facility] [address] [place], [address] Monocytes/100 WBC (Bld) 7.7 % Normal 0-10 [facility] Comment on above: Order Comment: 109.1 Performed By: #### L 100.0100 ####[facility] [address] [place], [address] Neutrophils/100 WBC (Bld) 61.2 % Normal 47-70 [facility] Comment on above: Order Comment: 109.1 Performed By: #### L 100.0100 ####[facility] [address] [place], [address] Nucleated RBC (Bld) [#/Vol] 0 10*3/uL Normal 0-5 [facility] Comment on above: Order Comment: 109.1 Performed By: #### L 100.0100 ####[facility] [address] [place], [address] Platelet mean volume (Bld) [Entitic vol] 11.5 fL Normal 6.2-12.0 [facility] Comment on above: Order Comment: 109.1 Performed By: #### L 100.0100 ####[facility] [address] [place], [address] Platelets (Bld) [#/Vol] 194 10*3/uL Normal 150-450 [facility] Comment on above: Order Comment: 109.1 Performed By: #### L 100.0100 ####[facility] [address] [place], [address] RBC (Bld) [#/Vol] 4.33 10*6/uL Low 4.6-6.2 [facility] Comment on above: Order Comment: 109.1 Performed By: #### L 100.0100 ####[facility] [address] [place], [address] RDW SD 44.3 fl High 35.1-43.9 [facility] Comment on above: Order Comment: 109.1 Performed By: #### L 100.0100 ####[facility] [address] [place], [address] WBC (Bld) [#/Vol] 7.9 10*3/uL Normal 4.4-11.0 [facility] Comment on above: Order Comment: 109.1 Performed By: #### L 100.0100 ####[facility] [address] [place], [address] CBC W/Diff, Automatedon 08-0 -2024 Absolute Lymph 2.83 X10 3/uL Normal 0.83-4.51 [facility] Comment on above: Order Comment: 109.1 Performed By: #### L 100.0100 ####[facility] [address] [place], [address] Absolute Neut 4.7 X10 3/uL Normal 2.0-7.7 [facility] Comment on above: Order Comment: 109.1 Performed By: #### L 100.0100 ####[facility] [address] [place], [address] Basophils/100 WBC (Bld) 0.8 % Normal 0-1 [facility] Comment on above: Order Comment: 109.1 Performed By: #### L 100.0100 ####[facility] [address] [place], [address] Eosinophils/100 WBC (Bld) 0.9 % Normal 0-5 [facility] Comment on above: Order Comment: 109.1 Performed By: #### L 100.0100 ####[facility] [address] [place], [address] Erythrocyte distribution width (RBC) [Ratio] 13.2 % Normal 11.6-14.6 [facility] Comment on above: Order Comment: 109.1 Performed By: #### L 100.0100 ####[facility] [address] [place], [address] Hematocrit (Bld) [Volume fraction] 41.4 % Normal 40-54 [facility] Comment on above: Order Comment: 109.1 Performed By: #### L 100.0100 ####[facility] [address] [place], [address] Hemoglobin (Bld) [Mass/Vol] 13.2 g/dL Normal 13.0-16.5 [facility] Comment on above: Order Comment: 109.1 Performed By: #### L 100.0100 ####[facility] [address] [place], [address] IG% 0.300 Normal 0.0-0.9 [facility] Comment on above: Order Comment: 109.1 Result Comment: IG% - Immature Granulocytes (promyelocytes, myelocytes andmetamyelocytes) > 1% indicates that a LEFT SHIFT is Present. Performed By: #### L 100.0100 ####[facility] [address] [place], [address] Lymphocytes/100 WBC (Bld) 31.3 % Normal 19-41 [facility] Comment on above: Order Comment: 109.1 Performed By: #### L 100.0100 ####[facility] [address] [place], [address] MCH (RBC) [Entitic mass] 30.1 pg Normal 27.0-32.0 [facility] Comment on above: Order Comment: 109.1 Performed By: #### L 100.0100 ####[facility] [address] [place], [address] MCHC (RBC) [Mass/Vol] 31.9 g/dL Low 32-36 [facility] Comment on above: Order Comment: 109.1 Performed By: #### L 100.0100 ####[facility] [address] [place], [address] MCV (RBC) [Entitic vol] 94.5 fL High 80-94 [facility] Comment on above: Order Comment: 109.1 Performed By: #### L 100.0100 ####[facility] [address] [place], [address] Monocytes/100 WBC (Bld) 14.8 % High 0-10 [facility] Comment on above: Order Comment: 109.1 Performed By: #### L 100.0100 ####[facility] [address] [place], [address] Neutrophils/100 WBC (Bld) 51.9 % Normal 47-70 [facility] Comment on above: Order Comment: 109.1 Performed By: #### L 100.0100 ####[facility] [address] [place], [address] Nucleated RBC (Bld) [#/Vol] 0 10*3/uL Normal 0-5 [facility] Comment on above: Order Comment: 109.1 Performed By: #### L 100.0100 ####[facility] [address] [place], [address] Platelet mean volume (Bld) [Entitic vol] 11.2 fL Normal 6.2-12.0 [facility] Comment on above: Order Comment: 109.1 Performed By: #### L 100.0100 ####[facility] [address] [place], [address] Platelets (Bld) [#/Vol] 182 10*3/uL Normal 150-450 [facility] Comment on above: Order Comment: 109.1 Performed By: #### L 100.0100 ####[facility] [address] [place], [address] RBC (Bld) [#/Vol] 4.38 10*6/uL Low 4.6-6.2 [facility] Comment on above: Order Comment: 109.1 Performed By: #### L 100.0100 ####[facility] [address] [place], [address] RDW SD 45.5 fl High 35.1-43.9 [facility] Comment on above: Order Comment: 109.1 Performed By: #### L 100.0100 ####[facility] [address] [place], [address] WBC (Bld) [#/Vol] 9.1 10*3/uL Normal 4.4-11.0 [facility] Comment on above: Order Comment: 109.1 Performed By: #### L 100.0100 ####[facility] [address] [place], [address] Absolute lymphocyte countOrd ered By: Renard Burgos on 11-25-2024 Lymphocytes Auto (Unsp spec) [#/Vol] 1.80 10*3/uL 0.83-4.51 [facility] Absolute neutrophil countOrd ered By: Renard Burgos on 11-25-2024 Neutrophils (Bld) [#/Vol] 7.6 10*3/uL 2.0-7.7 [facility] Automated blood erythrocyte countOrdered By: Renard Burgos on 11-25-2024 RBC (Bld) [#/Vol] 4.57 10*6/uL Low 4.6-6.2 [facility] Comment on above: Order Comment: 109-1 Performed By: #### L 100.0100 ####[facility] [address] [place], [address] Automated blood hematocrit ( percentage)Ordered By: Renard Burgos on 11-25-2024 Hematocrit (Bld) [Volume fraction] 42.1 % Normal 40-54 [facility] Comment on above: Order Comment: 109-1 Performed By: #### L 100.0100 ####[facility] [address] [place], [address] Automated lymphocyte count a s percentage of total leukocytesOrdered By: Renard Burgos on 11-25-2024 Lymphocytes/100 WBC Auto (Unsp spec) 17.3 % Low 19-41 [facility] Basophil percentageOrdered B y: Renard Burgos on 11-25-2024 Basophils/100 WBC (Bld) 0.4 % Normal 0-1 [facility] Comment on above: Order Comment: 109-1 Performed By: #### L 100.0100 ####[facility] [address] [place], [address] CBC W/Diff, Automatedon 10-30 Absolute Lymph 1.80 X10 3/uL Normal 0.83-4.51 [facility] Comment on above: Order Comment: 109-1 Performed By: #### L 100.0100 ####[facility] [address] [place], [address] Absolute Neut 7.6 X10 3/uL Normal 2.0-7.7 [facility] Comment on above: Order Comment: 109-1 Performed By: #### L 100.0100 ####[facility] [address] [place], [address] IG% 0.400 Normal 0.0-0.9 [facility] Comment on above: Order Comment: 109-1 Result Comment: IG% - Immature Granulocytes (promyelocytes, myelocytes andmetamyelocytes) > 1% indicates that a LEFT SHIFT is Present. Performed By: #### L 100.0100 ####[facility] [address] [place], [address] Lymphocytes/100 WBC (Bld) 17.3 % Low 19-41 [facility] Comment on above: Order Comment: 109-1 Performed By: #### L 100.0100 ####[facility] [address] [place], [address] Nucleated RBC (Bld) [#/Vol] 0 10*3/uL Normal 0-5 [facility] Comment on above: Order Comment: 109-1 Performed By: #### L 100.0100 ####[facility] [address] [place], [address] RDW SD 43.7 fl Normal 35.1-43.9 [facility] Comment on above: Order Comment: 109-1 Performed By: #### L 100.0100 ####[facility] [address] [place], [address] Eosinophil percentageOrdered By: Reanrd Burgos on 11-25-2024 Eosinophils/100 WBC (Bld) 0.6 % Normal 0-5 [facility] Comment on above: Order Comment: 109-1 Performed By: #### L 100.0100 ####[facility] [address] [place], [place], [address] Erythrocyte distribution wid th ratioOrdered By: Renard Burgos on 11-25-2024 Erythrocyte distribution width (RBC) [Ratio] 12.9 % Normal 11.6-14.6 [facility] Comment on above: Order Comment: 109-1 Performed By: #### L 100.0100 ####[facility] [address] [place], [place], [id number] Erythrocyte distribution wid th standard deviationOrdered By: Renard Burgos on 11-25-2024 Erythrocyte distribution width (RBC) [Ratio] 43.7 fl 35.1-43.9 [facility] Hemoglobin measurementOrdere d By: Renard Burgos on 11-25-2024 Hemoglobin (Bld) [Mass/Vol] 13.8 g/dL Normal 13.0-16.5 [facility] Comment on above: Order Comment: 109-1 Performed By: #### L 100.0100 ####[facility] [address] [place], [place], [phone] Immature granulocytes/100 WB C Auto (Bld)Ordered By: Renard Burgos on 11-25-2024 Immature granulocytes/100 WBC (Bld) 0.400 % 0.0-0.9 [facility] Comment on above: IG% - Immature Granu locytes (promyelocytes, myelocytes and metamyelocytes) > 1% indicates that a LEFT SHIFT is Present. MCV (mean corpuscular volume ) determinationOrdered By: Renard Burgos on 11-25-2024 MCV (RBC) [Entitic vol] 92.1 fL Normal 80-94 [facility] Comment on above: Order Comment: 109-1 Performed By: #### L 100.0100 ####[facility] [address] [place], [place], [id number] Mean corpuscular hemoglobin (MCH) determinationOrdered By: Renard Burgos on 11-25-2024 MCH (RBC) [Entitic mass] 30.2 pg Normal 27.0-32.0 [facility] Comment on above: Order Comment: 109-1 Performed By: #### L 100.0100 ####[facility] [address] [place], [address] Mean corpuscular hemoglobin concentration (MCHC) determinationOrdered By: Renard Burgos on 11-25-2024 MCHC (RBC) [Mass/Vol] 32.8 g/dL Normal 32-36 [facility] Comment on above: Order Comment: 109-1 Performed By: #### L 100.0100 ####[facility] [address] [place], [address] Mean platelet volume determi nationOrdered By: Renard Burgos on 11-25-2024 Platelet mean volume (Bld) [Entitic vol] 11.7 fL Normal 6.2-12.0 [facility] Comment on above: Order Comment: 109-1 Performed By: #### L 100.0100 ####[facility] [address] [place], [address] Monocyte percentageOrdered B y: Renard Burgos on 11-25-2024 Monocytes/100 WBC (Bld) 8.6 % Normal 0-10 [facility] Comment on above: Order Comment: 109-1 Performed By: #### L 100.0100 ####[facility] [address] [place], [address] Neutrophil percentageOrdered By: Renard Burgos on 11-25-2024 Neutrophils/100 WBC (Bld) 72.7 % High 47-70 [facility] Comment on above: Order Comment: 109-1 Performed By: #### L 100.0100 ####[facility] [address] [place], [address] Nucleated red blood cell per centageOrdered By: Renard Burgos on 11-25-2024 Nucleated RBC/100 WBC (Bld) [Ratio] 0 % 0-5 [facility] Platelet countOrdered By: Garrick Bhatt on 11-25-2024 Platelets (Bld) [#/Vol] 201 10*3/uL Normal 150-450 [facility] Comment on above: Order Comment: 109-1 Performed By: #### L 100.0100 ####[facility] [address] [place], [place], [id number] White blood cell (WBC) count Ordered By: Renard Burgos on 11-25-2024 WBC (Bld) [#/Vol] 10.4 10*3/uL Normal 4.4-11.0 [facility] Comment on above: Order Comment: 109-1 Performed By: #### L 100.0100 ####[facility] [address] [place], [place], [id number] Absolute lymphocyte countOrd ered By: Renard Burgos on 11-18-2024 Lymphocytes Auto (Unsp spec) [#/Vol] 2.56 10*3/uL 0.83-4.51 [facility] Absolute neutrophil countOrd ered By: Renard Burgos on 11-18-2024 Neutrophils (Bld) [#/Vol] 6.7 10*3/uL 2.0-7.7 [facility] Automated lymphocyte count a s percentage of total leukocytesOrdered By: Renard Burgos on 11-18-2024 Lymphocytes/100 WBC Auto (Unsp spec) 24.9 % 19-41 [facility] Basophil percentageOrdered B y: Renard Burgos on 11-18-2024 Basophils/100 WBC (Bld) 0.5 % 0-1 [facility] CBC W/Diff, Automatedon 10-30 Absolute Lymph 2.56 X10 3/uL Normal 0.83-4.51 [facility] Comment on above: Order Comment: 109.1 Performed By: #### L 100.0100 ####[facility] [address] [place], [phone]) Absolute Neut 6.7 X10 3/uL Normal 2.0-7.7 [facility] Comment on above: Order Comment: 109.1 Performed By: #### L 100.0100 ####[facility] [address] [place], [address] Basophils/100 WBC (Bld) 0.5 % Normal 0-1 [facility] Comment on above: Order Comment: 109.1 Performed By: #### L 100.0100 ####[facility] [address] [place], [address] Eosinophils/100 WBC (Bld) 0.8 % Normal 0-5 [facility] Comment on above: Order Comment: 109.1 Performed By: #### L 100.0100 ####[facility] [address] [place], [address] Erythrocyte distribution width (RBC) [Ratio] 13.2 % Normal 11.6-14.6 [facility] Comment on above: Order Comment: 109.1 Performed By: #### L 100.0100 ####[facility] [address] [place], [address] Hematocrit (Bld) [Volume fraction] 41.6 % Normal 40-54 [facility] Comment on above: Order Comment: 109.1 Performed By: #### L 100.0100 ####[facility] [address] [place], [address] Hemoglobin (Bld) [Mass/Vol] 13.6 g/dL Normal 13.0-16.5 [facility] Comment on above: Order Comment: 109.1 Performed By: #### L 100.0100 ####[facility] [address] [place], [address] IG% 0.400 Normal 0.0-0.9 [facility] Comment on above: Order Comment: 109.1 Result Comment: IG% - Immature Granulocytes (promyelocytes, myelocytes andmetamyelocytes) > 1% indicates that a LEFT SHIFT is Present. Performed By: #### L 100.0100 ####[facility] [address] [place], [address] Lymphocytes/100 WBC (Bld) 24.9 % Normal 19-41 [facility] Comment on above: Order Comment: 109.1 Performed By: #### L 100.0100 ####[facility] [address] [place], [address] MCH (RBC) [Entitic mass] 30.3 pg Normal 27.0-32.0 [facility] Comment on above: Order Comment: 109.1 Performed By: #### L 100.0100 ####[facility] [address] [place], [address] MCHC (RBC) [Mass/Vol] 32.7 g/dL Normal 32-36 [facility] Comment on above: Order Comment: 109.1 Performed By: #### L 100.0100 ####[facility] [address] [place], [address] MCV (RBC) [Entitic vol] 92.7 fL Normal 80-94 [facility] Comment on above: Order Comment: 109.1 Performed By: #### L 100.0100 ####[facility] [address] [place], [address] Monocytes/100 WBC (Bld) 8.9 % Normal 0-10 [facility] Comment on above: Order Comment: 109.1 Performed By: #### L 100.0100 ####[facility] [address] [place], [address] Neutrophils/100 WBC (Bld) 64.5 % Normal 47-70 [facility] Comment on above: Order Comment: 109.1 Performed By: #### L 100.0100 ####[facility] [address] [place], [address] Nucleated RBC (Bld) [#/Vol] 0 10*3/uL Normal 0-5 [facility] Comment on above: Order Comment: 109.1 Performed By: #### L 100.0100 ####[facility] [address] [place], [address] Platelet mean volume (Bld) [Entitic vol] 11.0 fL Normal 6.2-12.0 [facility] Comment on above: Order Comment: 109.1 Performed By: #### L 100.0100 ####[facility] [address] [place], [address] Platelets (Bld) [#/Vol] 177 10*3/uL Normal 150-450 [facility] Comment on above: Order Comment: 109.1 Performed By: #### L 100.0100 ####[facility] [address] [place], [address] RBC (Bld) [#/Vol] 4.49 10*6/uL Low 4.6-6.2 [facility] Comment on above: Order Comment: 109.1 Performed By: #### L 100.0100 ####[facility] [address] [place], [address] RDW SD 44.9 fl High 35.1-43.9 [facility] Comment on above: Order Comment: 109.1 Performed By: #### L 100.0100 ####[facility] [address] [place], [address] WBC (Bld) [#/Vol] 10.3 10*3/uL Normal 4.4-11.0 [facility] Comment on above: Order Comment: 109.1 Performed By: #### L 100.0100 ####[facility] [address] [place], [address] Eosinophil percentageOrdered By: Renard uBrgos on 11-18-2024 Eosinophils/100 WBC (Bld) 0.8 % 0-5 [facility] Erythrocyte distribution wid th ratioOrdered By: Renard Burgos on 11-18-2024 Erythrocyte distribution width (RBC) [Ratio] 13.2 % 11.6-14.6 [facility] Erythrocyte distribution wid th standard deviationOrdered By: Renard Burgos on 11-18-2024 Erythrocyte distribution width (RBC) [Ratio] 44.9 fl High 35.1-43.9 [facility] Hematocrit Auto (Bld) [Volum e fraction]Ordered By: Renard Burgos on 11-18-2024 Hematocrit (Bld) [Volume fraction] 41.6 % 40-54 [facility] Hemoglobin measurementOrdere d By: Renard Burgos on 11-18-2024 Hemoglobin (Bld) [Mass/Vol] 13.6 g/dL 13.0-16.5 [facility] Immature granulocytes/100 WB C Auto (Bld)Ordered By: Renard Burgos on 11-18-2024 Immature granulocytes/100 WBC (Bld) 0.400 % 0.0-0.9 [facility] Comment on above: IG% - Immature Granu locytes (promyelocytes, myelocytes and metamyelocytes) > 1% indicates that a LEFT SHIFT is Present. MCV (mean corpuscular volume ) determinationOrdered By: Renard Burgos on 11-18-2024 MCV (RBC) [Entitic vol] 92.7 fL 80-94 [facility] Mean corpuscular hemoglobin (MCH) determinationOrdered By: Renard Burgos on 11-18-2024 MCH (RBC) [Entitic mass] 30.3 pg 27.0-32.0 [facility] Mean corpuscular hemoglobin concentration (MCHC) determinationOrdered By: Renard Burgos on 11-18-2024 MCHC (RBC) [Mass/Vol] 32.7 g/dL 32-36 [facility] Mean platelet volume determi nationOrdered By: Renard Burgos on 11-18-2024 Platelet mean volume (Bld) [Entitic vol] 11.0 fL 6.2-12.0 [facility] Monocyte percentageOrdered B y: Renard Burgos on 11-18-2024 Monocytes/100 WBC (Bld) 8.9 % 0-10 [facility] Neutrophil percentageOrdered By: Renard Burgos on 11-18-2024 Neutrophils/100 WBC (Bld) 64.5 % 47-70 [facility] Nucleated red blood cell per centageOrdered By: Renard Burgos on 11-18-2024 Nucleated RBC/100 WBC (Bld) [Ratio] 0 % 0-5 [facility] Platelet countOrdered By: Garrick Bhatt on 11-18-2024 Platelets (Bld) [#/Vol] 177 10*3/uL 150-450 [facility] RBC Auto (Bld) [#/Vol]Ordere d By: Renard Burgos on 11-18-2024 RBC (Bld) [#/Vol] 4.49 10*6/uL Low 4.6-6.2 [facility] White blood cell (WBC) count Ordered By: Renard Burgos on 11-18-2024 WBC (Bld) [#/Vol] 10.3 10*3/uL 4.4-11.0 [facility] Basic Metabolic Profile (BMP )on 11-12-2024 BUN/CRE 18.8 RATIO Normal 10-20 [facility] Comment on above: Order Comment: ADDED BMP TO 11/11/24 LABS Performed By: #### L 100.0100, L500.2500 ####[facility] [address] [place], [address] Calcium [Mass/Vol] 8.2 mg/dL Normal 7.6-11.0 [facility] Comment on above: Order Comment: ADDED BMP TO 11/11/24 LABS Performed By: #### L 100.0100, L500.2500 ####[facility] [address] [place], [address] Chloride [Moles/Vol] 104 mmol/L Normal 98-108 [facility] Comment on above: Order Comment: ADDED BMP TO 11/11/24 LABS Performed By: #### L 100.0100, L500.2500 ####[facility] [address] [place], [address] CO2 [Moles/Vol] 24.9 mmol/L Normal 21.0-32.0 [facility] Comment on above: Order Comment: ADDED BMP TO 11/11/24 LABS Performed By: #### L 100.0100, L500.2500 ####[facility] [address] [place], [address] Creatinine [Mass/Vol] 0.58 mg/dL Low 0.70-1.20 [facility] Comment on above: Order Comment: ADDED BMP TO 11/11/24 LABS Performed By: #### L 100.0100, L500.2500 ####[facility] [address] [place], [address] GAP 11 Normal 5-15 [facility] Comment on above: Order Comment: ADDED BMP TO 11/11/24 LABS Performed By: #### L 100.0100, L500.2500 ####[facility] [address] [place], [address] GFR/1.73 sq M.predicted among non-blacks MDRD (S/P/Bld) [Vol rate/Area] 107 mL/min/{1.73_m2} Normal >60 [facility] Comment on above: Order Comment: ADDED BMP TO 11/11/24 LABS Result Comment: mL/m in/1.73m2 CKD-EPI Creatinine Equation (2020) Performed By: #### L 100.0100, L500.2500 ####[facility] [address] [place], [address] Glucose [Mass/Vol] 101 mg/dL High 70-99 [facility] Comment on above: Order Comment: ADDED BMP TO 11/11/24 LABS Performed By: #### L 100.0100, L500.2500 ####[facility] [address] [place], [address] Potassium [Moles/Vol] 3.9 mmol/L Normal 3.3-5.1 [facility] Comment on above: Order Comment: ADDED BMP TO 11/11/24 LABS Performed By: #### L 100.0100, L500.2500 ####[facility] [address] [place], [address] Sodium [Moles/Vol] 140 mmol/L Normal 133-145 [facility] Comment on above: Order Comment: ADDED BMP TO 11/11/24 LABS Performed By: #### L 100.0100, L500.2500 ####[facility] [address] [place], [address] Urea nitrogen [Mass/Vol] 11 mg/dL Normal 4- [facility] Comment on above: Order Comment: ADDED BMP TO 11/11/24 LABS Performed By: #### L 100.0100, L500.2500 ####[facility] [address] [place], [address] Absolute lymphocyte countOrd ered By: Renard Burgos on 11-11-2024 Lymphocytes Auto (Unsp spec) [#/Vol] 2.08 10*3/uL 0.83-4.51 [facility] Absolute neutrophil countOrd ered By: Renard Burgos on 11-11-2024 Neutrophils (Bld) [#/Vol] 5.2 10*3/uL 2.0-7.7 [facility] Anion gap in Serum or Plasma Ordered By: Renard Burgos on 11-11-2024 Anion gap [Moles/Vol] 11 mmol/L 5-15 [facility] Automated lymphocyte count a s percentage of total leukocytesOrdered By: Renard Burgos on 11-11-2024 Lymphocytes/100 WBC Auto (Unsp spec) 25.7 % 19- [facility] BUN/creatinine ratioOrdered By: Renard Burgos on 11-11-2024 Urea nitrogen/Creatinine [Mass ratio] 18.8 mg/mg 10-20 [facility] Basophil percentageOrdered B y: Renard Burgos on 11-11-2024 Basophils/100 WBC (Bld) 0.6 % 0-1 [facility] CBC W/Diff, Automatedon 10-29 Absolute Lymph 2.08 X10 3/uL Normal 0.83-4.51 [facility] Comment on above: Order Comment: 109.1 Performed By: #### L 100.0100, L500.2500 ####[facility] [address] [place], [address] Absolute Neut 5.2 X10 3/uL Normal 2.0-7.7 [facility] Comment on above: Order Comment: 109.1 Performed By: #### L 100.0100, L500.2500 ####[facility] [address] [place], [address] Basophils/100 WBC (Bld) 0.6 % Normal 0-1 [facility] Comment on above: Order Comment: 109.1 Performed By: #### L 100.0100, L500.2500 ####[facility] [address] [place], [address] Eosinophils/100 WBC (Bld) 1.0 % Normal 0-5 [facility] Comment on above: Order Comment: 109.1 Performed By: #### L 100.0100, L500.2500 ####[facility] [address] [place], [address] Erythrocyte distribution width (RBC) [Ratio] 13.2 % Normal 11.6-14.6 [facility] Comment on above: Order Comment: 109.1 Performed By: #### L 100.0100, L500.2500 ####[facility] [address] [place], [address] Hematocrit (Bld) [Volume fraction] 38.6 % Low 40-54 [facility] Comment on above: Order Comment: 109.1 Performed By: #### L 100.0100, L500.2500 ####[facility] [address] [place], [address] Hemoglobin (Bld) [Mass/Vol] 12.6 g/dL Low 13.0-16.5 [facility] Comment on above: Order Comment: 109.1 Performed By: #### L 100.0100, L500.2500 ####[facility] [address] [place], [address] IG% 0.400 Normal 0.0-0.9 [facility] Comment on above: Order Comment: 109.1 Result Comment: IG% - Immature Granulocytes (promyelocytes, myelocytes andmetamyelocytes) > 1% indicates that a LEFT SHIFT is Present. Performed By: #### L 100.0100, L500.2500 ####[facility] [address] [place], [address] Lymphocytes/100 WBC (Bld) 25.7 % Normal 19-41 [facility] Comment on above: Order Comment: 109.1 Performed By: #### L 100.0100, L500.2500 ####[facility] [address] [place], [address] MCH (RBC) [Entitic mass] 29.9 pg Normal 27.0-32.0 [facility] Comment on above: Order Comment: 109.1 Performed By: #### L 100.0100, L500.2500 ####[facility] [address] [place], [address] MCHC (RBC) [Mass/Vol] 32.6 g/dL Normal 32-36 [facility] Comment on above: Order Comment: 109.1 Performed By: #### L 100.0100, L500.2500 ####[facility] [address] [place], [address] MCV (RBC) [Entitic vol] 91.7 fL Normal 80-94 [facility] Comment on above: Order Comment: 109.1 Performed By: #### L 100.0100, L500.2500 ####[facility] [address] [place], [address] Monocytes/100 WBC (Bld) 8.3 % Normal 0-10 [facility] Comment on above: Order Comment: 109.1 Performed By: #### L 100.0100, L500.2500 ####[facility] [address] [place], [address] Neutrophils/100 WBC (Bld) 64.0 % Normal 47-70 [facility] Comment on above: Order Comment: 109.1 Performed By: #### L 100.0100, L500.2500 ####[facility] [address] [place], [address] Nucleated RBC (Bld) [#/Vol] 0 10*3/uL Normal 0-5 [facility] Comment on above: Order Comment: 109.1 Performed By: #### L 100.0100, L500.2500 ####[facility] [address] [place], [address] Platelet mean volume (Bld) [Entitic vol] 11.4 fL Normal 6.2-12.0 [facility] Comment on above: Order Comment: 109.1 Performed By: #### L 100.0100, L500.2500 ####[facility] [address] [place], [address] Platelets (Bld) [#/Vol] 220 10*3/uL Normal 150-450 [facility] Comment on above: Order Comment: 109.1 Performed By: #### L 100.0100, L500.2500 ####[facility] [address] [place], [address] RBC (Bld) [#/Vol] 4.21 10*6/uL Low 4.6-6.2 [facility] Comment on above: Order Comment: 109.1 Performed By: #### L 100.0100, L500.2500 ####[facility] [address] [place], [address] RDW SD 44.4 fl High 35.1-43.9 [facility] Comment on above: Order Comment: 109.1 Performed By: #### L 100.0100, L500.2500 ####[facility] [address] [place], [address] WBC (Bld) [#/Vol] 8.1 10*3/uL Normal 4.4-11.0 [facility] Comment on above: Order Comment: 109.1 Performed By: #### L 100.0100, L500.2500 ####[facility] [address] [place], [address] Carbon dioxide, total [Moles /volume] in Central venous bloodOrdered By: Renard Burgos on 11-11-2024 CO2 [Moles/Vol] 24.9 mmol/L 21.0-32.0 [facility] Chloride assayOrdered By: Garrick Bhatt on 11-11-2024 Chloride [Moles/Vol] 104 mmol/L 98-108 [facility] Eosinophil percentageOrdered By: Renard Burgos on 11-11-2024 Eosinophils/100 WBC (Bld) 1.0 % 0-5 [facility] Erythrocyte distribution wid th ratioOrdered By: Renard Burgos on 11-11-2024 Erythrocyte distribution width (RBC) [Ratio] 13.2 % 11.6-14.6 [facility] Erythrocyte distribution wid th standard deviationOrdered By: Renard Burgos on 11-11-2024 Erythrocyte distribution width (RBC) [Ratio] 44.4 fl High 35.1-43.9 [facility] Glomerular filtration rate ( GFR) estimation/1.73 sq m using serum, plasma, or whole bOrdered By: Renard Burgos on 11-11-2024 GFR/1.73 sq M.predicted among non-blacks MDRD (S/P/Bld) [Vol rate/Area] 107 mL/min/{1.73_m2} >60 [facility] Comment on above: mL/min/1.73m2 CKD-EP I Creatinine Equation (2020) Hematocrit Auto (Bld) [Volum e fraction]Ordered By: Renard Burgos on 11-11-2024 Hematocrit (Bld) [Volume fraction] 38.6 % Low 40-54 [facility] Hemoglobin measurementOrdere d By: Renard Burgos on 11-11-2024 Hemoglobin (Bld) [Mass/Vol] 12.6 g/dL Low 13.0-16.5 [facility] Immature granulocytes/100 WB C Auto (Bld)Ordered By: Renard Burgos on 11-11-2024 Immature granulocytes/100 WBC (Bld) 0.400 % 0.0-0.9 [facility] Comment on above: IG% - Immature Granu locytes (promyelocytes, myelocytes and metamyelocytes) > 1% indicates that a LEFT SHIFT is Present. MCV (mean corpuscular volume ) determinationOrdered By: Renard Burgos on 11-11-2024 MCV (RBC) [Entitic vol] 91.7 fL 80-94 [facility] Mean corpuscular hemoglobin (MCH) determinationOrdered By: Renard Burgos on 11-11-2024 MCH (RBC) [Entitic mass] 29.9 pg 27.0-32.0 [facility] Mean corpuscular hemoglobin concentration (MCHC) determinationOrdered By: Renard Burgos on 11-11-2024 MCHC (RBC) [Mass/Vol] 32.6 g/dL 32-36 [facility] Mean platelet volume determi nationOrdered By: Renard Burgos on 11-11-2024 Platelet mean volume (Bld) [Entitic vol] 11.4 fL 6.2-12.0 [facility] Monocyte percentageOrdered B y: Renard Burgos on 11-11-2024 Monocytes/100 WBC (Bld) 8.3 % 0-10 [facility] Neutrophil percentageOrdered By: Renard Burgos on 11-11-2024 Neutrophils/100 WBC (Bld) 64.0 % 47-70 [facility] Nucleated red blood cell per centageOrdered By: Renard Burgos on 11-11-2024 Nucleated RBC/100 WBC (Bld) [Ratio] 0 % 0-5 [facility] Platelet countOrdered By: Garrick Bhatt on 11-11-2024 Platelets (Bld) [#/Vol] 220 10*3/uL 150-450 [facility] Potassium measurement (mass/ volume)Ordered By: Renard Burgos on 11-11-2024 Potassium (Unsp spec) [Mass/Vol] 3.9 mmol/L 3.3-5.1 [facility] RBC Auto (Bld) [#/Vol]Ordere d By: Renard Burgos on 11-11-2024 RBC (Bld) [#/Vol] 4.21 10*6/uL Low 4.6-6.2 [facility] Serum creatinine measurement (mass/volume)Ordered By: Renard Burgos on 11-11-2024 Creatinine [Mass/Vol] 0.58 mg/dL Low 0.70-1.20 [facility] Serum glucose measurement (m ass/volume)Ordered By: Renard Burgos on 11-11-2024 Glucose [Mass/Vol] 101 mg/dL High 70-99 [facility] Serum or plasma calcium gordy urement (mass/volume)Ordered By: Renard Burgos on 11-11-2024 Calcium [Mass/Vol] 8.2 mg/dL 7.6-11.0 [facility] Serum or plasma urea nitroge n measurement (mass/volume)Ordered By: Renard Burgos on 11-11-2024 Urea nitrogen [Mass/Vol] 11 mg/dL 4-19 [facility] Sodium levelOrdered By: Lamine Burgos on 11-11-2024 Sodium [Moles/Vol] 140 mmol/L 133-145 [facility] White blood cell (WBC) count Ordered By: Renard Burgos on 11-11-2024 WBC (Bld) [#/Vol] 8.1 10*3/uL 4.4-11.0 [facility] Absolute lymphocyte countOrd ered By: Renard Burgos on 11-04-2024 Lymphocytes Auto (Unsp spec) [#/Vol] 2.18 10*3/uL 0.83-4.51 [facility] Absolute neutrophil countOrd ered By: Renard Burgos on 11-04-2024 Neutrophils (Bld) [#/Vol] 4.8 10*3/uL 2.0-7.7 [facility] Automated lymphocyte count a s percentage of total leukocytesOrdered By: Renard Burgos on 11-04-2024 Lymphocytes/100 WBC Auto (Unsp spec) 28.1 % 19-41 [facility] Basophil percentageOrdered B y: Renard Burgos on 11-04-2024 Basophils/100 WBC (Bld) 0.6 % 0-1 [facility] CBC W/Diff, Automatedon 07-0 PLT EST A Normal ADEQ [facility] Comment on above: Order Comment: 109 Performed By: #### L 100.0100 ####[facility] [address] [place], [place], [address] PLT MORPH CLUMPED Normal [facility] Comment on above: Order Comment: 109 Performed By: #### L 100.0100 ####[facility] [address] [place], [place], [address] Eosinophil percentageOrdered By: Renard Burgos on 11-04-2024 Eosinophils/100 WBC (Bld) 0.8 % 0-5 [facility] Erythrocyte distribution wid th ratioOrdered By: Renard Burgos on 11-04-2024 Erythrocyte distribution width (RBC) [Ratio] 13.3 % 11.6-14.6 [facility] Erythrocyte distribution wid th standard deviationOrdered By: Renard Burgos on 11-04-2024 Erythrocyte distribution width (RBC) [Ratio] 45.0 fl High 35.1-43.9 [facility] Hematocrit Auto (Bld) [Volum e fraction]Ordered By: Renard Burgos on 11-04-2024 Hematocrit (Bld) [Volume fraction] 42.8 % 40-54 [facility] Hemoglobin measurementOrdere d By: Renard Burgos on 11-04-2024 Hemoglobin (Bld) [Mass/Vol] 14.0 g/dL 13.0-16.5 [facility] Immature granulocytes/100 WB C Auto (Bld)Ordered By: Renard Burgos on 11-04-2024 Immature granulocytes/100 WBC (Bld) 0.400 % 0.0-0.9 [facility] Comment on above: IG% - Immature Granu locytes (promyelocytes, myelocytes and metamyelocytes) > 1% indicates that a LEFT SHIFT is Present. MCV (mean corpuscular volume ) determinationOrdered By: Renard Burgos on 11-04-2024 MCV (RBC) [Entitic vol] 92.4 fL 80-94 [facility] Mean corpuscular hemoglobin (MCH) determinationOrdered By: Renard Burgos on 11-04-2024 MCH (RBC) [Entitic mass] 30.2 pg 27.0-32.0 [facility] Mean corpuscular hemoglobin concentration (MCHC) determinationOrdered By: Renard Burgos on 11-04-2024 MCHC (RBC) [Mass/Vol] 32.7 g/dL 32-36 [facility] Mean platelet volume determi nationOrdered By: Renard Burgos on 11-04-2024 Platelet mean volume (Bld) [Entitic vol] 11.6 fL 6.2-12.0 [facility] Monocyte percentageOrdered B y: Renard Burgos on 11-04-2024 Monocytes/100 WBC (Bld) 8.4 % 0-10 [facility] Neutrophil percentageOrdered By: Renard Burgos on 11-04-2024 Neutrophils/100 WBC (Bld) 61.7 % 47-70 [facility] Nucleated red blood cell per centageOrdered By: Renard Burgos on 11-04-2024 Nucleated RBC/100 WBC (Bld) [Ratio] 0 % 0-5 [facility] Platelet countOrdered By: Garrick Bhatt on 11-04-2024 Platelet count TNP [facility] Comment on above: Test not performed Platelet estimateOrdered By: Renard Burgos on 11-04-2024 Platelets LM Ql (Bld) A ADEQ [facility] Platelet morphologyOrdered B y: Renard Burgos on 11-04-2024 Platelet morphology finding Nom (Bld) CLUMPED [facility] RBC Auto (Bld) [#/Vol]Ordere d By: Renard Burgos on 11-04-2024 RBC (Bld) [#/Vol] 4.63 10*6/uL 4.6-6.2 [facility] White blood cell (WBC) count Ordered By: Renard Burgos on 11-04-2024 WBC (Bld) [#/Vol] 7.8 10*3/uL 4.4-11.0 [facility] Absolute lymphocyte countOrd ered By: Renard Burgos on 10-28-2024 Lymphocytes Auto (Unsp spec) [#/Vol] 1.72 10*3/uL 0.83-4.51 [facility] Absolute neutrophil countOrd ered By: Renard Amezquitahola on 10-28-2024 Neutrophils (Bld) [#/Vol] 5.0 10*3/uL 2.0-7.7 [facility] Automated lymphocyte count a s percentage of total leukocytesOrdered By: Renard Burgos on 10-28-2024 Lymphocytes/100 WBC Auto (Unsp spec) 22.9 % 19-41 [facility] Basophil percentageOrdered B y: Renard Burgos on 10-28-2024 Basophils/100 WBC (Bld) 0.7 % 0-1 [facility] CBC W/Diff, Automatedon 10-01-2024 Absolute Lymph 1.72 X10 3/uL Normal 0.83-4.51 [facility] Comment on above: Order Comment: 109-1 Performed By: #### L 100.0100 ####[facility] [address] [place], [address] Absolute Neut 5.0 X10 3/uL Normal 2.0-7.7 [facility] Comment on above: Order Comment: 109-1 Performed By: #### L 100.0100 ####[facility] [address] [place], [address] Basophils/100 WBC (Bld) 0.7 % Normal 0-1 [facility] Comment on above: Order Comment: 109-1 Performed By: #### L 100.0100 ####[facility] [address] [place], [address] Eosinophils/100 WBC (Bld) 1.2 % Normal 0-5 [facility] Comment on above: Order Comment: 109-1 Performed By: #### L 100.0100 ####[facility] [address] [place], [address] Erythrocyte distribution width (RBC) [Ratio] 13.2 % Normal 11.6-14.6 [facility] Comment on above: Order Comment: 109-1 Performed By: #### L 100.0100 ####[facility] [address] [place], [address] Hematocrit (Bld) [Volume fraction] 37.3 % Low 40-54 [facility] Comment on above: Order Comment: 109-1 Performed By: #### L 100.0100 ####[facility] [address] [place], [address] Hemoglobin (Bld) [Mass/Vol] 12.3 g/dL Low 13.0-16.5 [facility] Comment on above: Order Comment: 109-1 Performed By: #### L 100.0100 ####[facility] [address] [place], [address] IG% 0.100 Normal 0.0-0.9 [facility] Comment on above: Order Comment: 109-1 Result Comment: IG% - Immature Granulocytes (promyelocytes, myelocytes andmetamyelocytes) > 1% indicates that a LEFT SHIFT is Present. Performed By: #### L 100.0100 ####[facility] [address] [place], [address] Lymphocytes/100 WBC (Bld) 22.9 % Normal 19-41 [facility] Comment on above: Order Comment: 109-1 Performed By: #### L 100.0100 ####[facility] [address] [place], [address] MCH (RBC) [Entitic mass] 30.1 pg Normal 27.0-32.0 [facility] Comment on above: Order Comment: 109-1 Performed By: #### L 100.0100 ####[facility] [address] [place], [address] MCHC (RBC) [Mass/Vol] 33.0 g/dL Normal 32-36 [facility] Comment on above: Order Comment: 109-1 Performed By: #### L 100.0100 ####[facility] [address] [place], [address] MCV (RBC) [Entitic vol] 91.4 fL Normal 80-94 [facility] Comment on above: Order Comment: 109-1 Performed By: #### L 100.0100 ####[facility] [address] [place], [address] Monocytes/100 WBC (Bld) 8.1 % Normal 0-10 [facility] Comment on above: Order Comment: 109-1 Performed By: #### L 100.0100 ####[facility] [address] [place], [address] Neutrophils/100 WBC (Bld) 67.0 % Normal 47-70 [facility] Comment on above: Order Comment: 109-1 Performed By: #### L 100.0100 ####[facility] [address] [place], [address] Nucleated RBC (Bld) [#/Vol] 0 10*3/uL Normal 0-5 [facility] Comment on above: Order Comment: 109-1 Performed By: #### L 100.0100 ####[facility] [address] [place], [address] Platelet mean volume (Bld) [Entitic vol] 11.3 fL Normal 6.2-12.0 [facility] Comment on above: Order Comment: 109-1 Performed By: #### L 100.0100 ####[facility] [address] [place], [address] Platelets (Bld) [#/Vol] 201 10*3/uL Normal 150-450 [facility] Comment on above: Order Comment: 109-1 Performed By: #### L 100.0100 ####[facility] [address] [place], [address] RBC (Bld) [#/Vol] 4.08 10*6/uL Low 4.6-6.2 [facility] Comment on above: Order Comment: 109-1 Performed By: #### L 100.0100 ####[facility] [address] [place], [address] RDW SD 44.0 fl High 35.1-43.9 [facility] Comment on above: Order Comment: 109-1 Performed By: #### L 100.0100 ####[facility] [address] [place], [address] WBC (Bld) [#/Vol] 7.5 10*3/uL Normal 4.4-11.0 [facility] Comment on above: Order Comment: 109-1 Performed By: #### L 100.0100 ####[facility] [address] [place], [address] Eosinophil percentageOrdered By: Renard Burgos on 10-28-2024 Eosinophils/100 WBC (Bld) 1.2 % 0-5 [facility] Erythrocyte distribution wid th ratioOrdered By: Renard Burgos on 10-28-2024 Erythrocyte distribution width (RBC) [Ratio] 13.2 % 11.6-14.6 [facility] Erythrocyte distribution wid th standard deviationOrdered By: Renard Burgos on 10-28-2024 Erythrocyte distribution width (RBC) [Ratio] 44.0 fl High 35.1-43.9 [facility] Hematocrit Auto (Bld) [Volum e fraction]Ordered By: Renard Burgos on 10-28-2024 Hematocrit (Bld) [Volume fraction] 37.3 % Low 40-54 [facility] Hemoglobin measurementOrdere d By: Renard Burgos on 10-28-2024 Hemoglobin (Bld) [Mass/Vol] 12.3 g/dL Low 13.0-16.5 [facility] Immature granulocytes/100 WB C Auto (Bld)Ordered By: Renard Burgos on 10-28-2024 Immature granulocytes/100 WBC (Bld) 0.100 % 0.0-0.9 [facility] Comment on above: IG% - Immature Granu locytes (promyelocytes, myelocytes and metamyelocytes) > 1% indicates that a LEFT SHIFT is Present. MCV (mean corpuscular volume ) determinationOrdered By: Renard Burgos on 10-28-2024 MCV (RBC) [Entitic vol] 91.4 fL 80-94 [facility] Mean corpuscular hemoglobin (MCH) determinationOrdered By: Renard Burgos on 10-28-2024 MCH (RBC) [Entitic mass] 30.1 pg 27.0-32.0 [facility] Mean corpuscular hemoglobin concentration (MCHC) determinationOrdered By: Renard Burgos on 10-28-2024 MCHC (RBC) [Mass/Vol] 33.0 g/dL 32-36 [facility] Mean platelet volume determi nationOrdered By: Renard Burgos on 10-28-2024 Platelet mean volume (Bld) [Entitic vol] 11.3 fL 6.2-12.0 [facility] Monocyte percentageOrdered B y: Renard Burgos on 10-28-2024 Monocytes/100 WBC (Bld) 8.1 % 0-10 [facility] Neutrophil percentageOrdered By: Renard Burgos on 10-28-2024 Neutrophils/100 WBC (Bld) 67.0 % 47-70 [facility] Nucleated red blood cell per centageOrdered By: Renard Burgos on 10-28-2024 Nucleated RBC/100 WBC (Bld) [Ratio] 0 % 0-5 [facility] Platelet countOrdered By: Garrick Bhatt on 10-28-2024 Platelets (Bld) [#/Vol] 201 10*3/uL 150-450 [facility] RBC Auto (Bld) [#/Vol]Ordere d By: Renard Burgos on 10-28-2024 RBC (Bld) [#/Vol] 4.08 10*6/uL Low 4.6-6.2 [facility] White blood cell (WBC) count Ordered By: Renard Burgos on 10-28-2024 WBC (Bld) [#/Vol] 7.5 10*3/uL 4.4-11.0 [facility] Absolute lymphocyte countOrd ered By: Renard Burgos on 10-21-2024 Lymphocytes Auto (Unsp spec) [#/Vol] 2.41 10*3/uL 0.83-4.51 [facility] Absolute neutrophil countOrd ered By: Renard Burgos on 10-21-2024 Neutrophils (Bld) [#/Vol] 5.2 10*3/uL 2.0-7.7 [facility] Automated lymphocyte count a s percentage of total leukocytesOrdered By: Renard Burgos on 10-21-2024 Lymphocytes/100 WBC Auto (Unsp spec) 28.2 % 19- [facility] Basophil percentageOrdered B y: Renard Burgos on 10-21-2024 Basophils/100 WBC (Bld) 0.6 % 0-1 [facility] CBC W/Diff, Automatedon 09-30 Absolute Lymph 2.41 X10 3/uL Normal 0.83-4.51 [facility] Comment on above: Order Comment: 109 Performed By: #### L 100.0100 ####[facility] [address] [place], [address] Absolute Neut 5.2 X10 3/uL Normal 2.0-7.7 [facility] Comment on above: Order Comment: 109 Performed By: #### L 100.0100 ####[facility] [address] [place], [address] Basophils/100 WBC (Bld) 0.6 % Normal 0-1 [facility] Comment on above: Order Comment: 109 Performed By: #### L 100.0100 ####[facility] [address] [place], [address] Eosinophils/100 WBC (Bld) 0.8 % Normal 0-5 [facility] Comment on above: Order Comment: 109 Performed By: #### L 100.0100 ####[facility] [address] [place], [address] Erythrocyte distribution width (RBC) [Ratio] 13.3 % Normal 11.6-14.6 [facility] Comment on above: Order Comment: 109 Performed By: #### L 100.0100 ####[facility] [address] [place], [address] Hematocrit (Bld) [Volume fraction] 38.9 % Low 40-54 [facility] Comment on above: Order Comment: 109 Performed By: #### L 100.0100 ####[facility] [address] [place], [address] Hemoglobin (Bld) [Mass/Vol] 12.8 g/dL Low 13.0-16.5 [facility] Comment on above: Order Comment: 109 Performed By: #### L 100.0100 ####[facility] [address] [place], [address] IG% 0.400 Normal 0.0-0.9 [facility] Comment on above: Order Comment: 109 Result Comment: IG% - Immature Granulocytes (promyelocytes, myelocytes andmetamyelocytes) > 1% indicates that a LEFT SHIFT is Present. Performed By: #### L 100.0100 ####[facility] [address] [place], [address] Lymphocytes/100 WBC (Bld) 28.2 % Normal 19-41 [facility] Comment on above: Order Comment: 109 Performed By: #### L 100.0100 ####[facility] [address] [place], [address] MCH (RBC) [Entitic mass] 30.1 pg Normal 27.0-32.0 [facility] Comment on above: Order Comment: 109 Performed By: #### L 100.0100 ####[facility] [address] [place], [address] MCHC (RBC) [Mass/Vol] 32.9 g/dL Normal 32-36 [facility] Comment on above: Order Comment: 109 Performed By: #### L 100.0100 ####[facility] [address] [place], [address] MCV (RBC) [Entitic vol] 91.5 fL Normal 80-94 [facility] Comment on above: Order Comment: 109 Performed By: #### L 100.0100 ####[facility] [address] [place], [address] Monocytes/100 WBC (Bld) 9.1 % Normal 0-10 [facility] Comment on above: Order Comment: 109 Performed By: #### L 100.0100 ####[facility] [address] [place], [address] Neutrophils/100 WBC (Bld) 60.9 % Normal 47-70 [facility] Comment on above: Order Comment: 109 Performed By: #### L 100.0100 ####[facility] [address] [place], [address] Nucleated RBC (Bld) [#/Vol] 0 10*3/uL Normal 0-5 [facility] Comment on above: Order Comment: 109 Performed By: #### L 100.0100 ####[facility] [address] [place], [address] Platelet mean volume (Bld) [Entitic vol] 11.2 fL Normal 6.2-12.0 [facility] Comment on above: Order Comment: 109 Performed By: #### L 100.0100 ####[facility] [address] [place], [address] Platelets (Bld) [#/Vol] 204 10*3/uL Normal 150-450 [facility] Comment on above: Order Comment: 109 Performed By: #### L 100.0100 ####[facility] [address] [place], [address] RBC (Bld) [#/Vol] 4.25 10*6/uL Low 4.6-6.2 [facility] Comment on above: Order Comment: 109 Performed By: #### L 100.0100 ####[facility] [address] [place], [address] RDW SD 44.5 fl High 35.1-43.9 [facility] Comment on above: Order Comment: 109 Performed By: #### L 100.0100 ####[facility] [address] [place], [address] WBC (Bld) [#/Vol] 8.5 10*3/uL Normal 4.4-11.0 [facility] Comment on above: Order Comment: 109 Performed By: #### L 100.0100 ####[facility] [address] [place], [address] Eosinophil percentageOrdered By: Renard Burgos on 10-21-2024 Eosinophils/100 WBC (Bld) 0.8 % 0-5 [facility] Erythrocyte distribution wid th ratioOrdered By: Renard Burgos on 10-21-2024 Erythrocyte distribution width (RBC) [Ratio] 13.3 % 11.6-14.6 [facility] Erythrocyte distribution wid th standard deviationOrdered By: Renard Burgos on 10-21-2024 Erythrocyte distribution width (RBC) [Ratio] 44.5 fl High 35.1-43.9 [facility] Hematocrit Auto (Bld) [Volum e fraction]Ordered By: Renard Burgos on 10-21-2024 Hematocrit (Bld) [Volume fraction] 38.9 % Low 40-54 [facility] Hemoglobin measurementOrdere d By: Renard Burgos on 10-21-2024 Hemoglobin (Bld) [Mass/Vol] 12.8 g/dL Low 13.0-16.5 [facility] Immature granulocytes/100 WB C Auto (Bld)Ordered By: Renard Burgos on 10-21-2024 Immature granulocytes/100 WBC (Bld) 0.400 % 0.0-0.9 [facility] Comment on above: IG% - Immature Granu locytes (promyelocytes, myelocytes and metamyelocytes) > 1% indicates that a LEFT SHIFT is Present. MCV (mean corpuscular volume ) determinationOrdered By: Renard Burgos on 10-21-2024 MCV (RBC) [Entitic vol] 91.5 fL 80-94 [facility] Mean corpuscular hemoglobin (MCH) determinationOrdered By: Renard Burgos on 10-21-2024 MCH (RBC) [Entitic mass] 30.1 pg 27.0-32.0 [facility] Mean corpuscular hemoglobin concentration (MCHC) determinationOrdered By: Renard Burgos on 10-21-2024 MCHC (RBC) [Mass/Vol] 32.9 g/dL 32-36 [facility] Mean platelet volume determi nationOrdered By: Renard Burgos on 10-21-2024 Platelet mean volume (Bld) [Entitic vol] 11.2 fL 6.2-12.0 [facility] Monocyte percentageOrdered B y: Renard Burgos on 10-21-2024 Monocytes/100 WBC (Bld) 9.1 % 0-10 [facility] Neutrophil percentageOrdered By: Renard Burgos on 10-21-2024 Neutrophils/100 WBC (Bld) 60.9 % 47-70 [facility] Nucleated red blood cell per centageOrdered By: Renard Burgos on 10-21-2024 Nucleated RBC/100 WBC (Bld) [Ratio] 0 % 0-5 [facility] Platelet countOrdered By: Garrick Bhatt on 10-21-2024 Platelets (Bld) [#/Vol] 204 10*3/uL 150-450 [facility] RBC Auto (Bld) [#/Vol]Ordere d By: Renard Burgos on 10-21-2024 RBC (Bld) [#/Vol] 4.25 10*6/uL Low 4.6-6.2 [facility] White blood cell (WBC) count Ordered By: Renard Burgos on 10-21-2024 WBC (Bld) [#/Vol] 8.5 10*3/uL 4.4-11.0 [facility] Absolute lymphocyte countOrd ered By: Renard Burgos on 10-14-2024 Lymphocytes Auto (Unsp spec) [#/Vol] 1.77 10*3/uL 0.83-4.51 [facility] Absolute neutrophil countOrd ered By: Renard Amezquitahola on 10-14-2024 Neutrophils (Bld) [#/Vol] 4.8 10*3/uL 2.0-7.7 [facility] Automated lymphocyte count a s percentage of total leukocytesOrdered By: Renard Burgos on 10-14-2024 Lymphocytes/100 WBC Auto (Unsp spec) 24.2 % 19-41 [facility] Basophil percentageOrdered B y: Renard Burgos on 10-14-2024 Basophils/100 WBC (Bld) 0.7 % 0-1 [facility] CBC W/Diff, Automatedon 09-29 Absolute Lymph 1.77 X10 3/uL Normal 0.83-4.51 [facility] Comment on above: Order Comment: 109 Performed By: #### L 100.0100 ####[facility] [address] [place], [address] Absolute Neut 4.8 X10 3/uL Normal 2.0-7.7 [facility] Comment on above: Order Comment: 109 Performed By: #### L 100.0100 ####[facility] [address] [place], [address] Basophils/100 WBC (Bld) 0.7 % Normal 0-1 [facility] Comment on above: Order Comment: 109 Performed By: #### L 100.0100 ####[facility] [address] [place], [address] Eosinophils/100 WBC (Bld) 0.8 % Normal 0-5 [facility] Comment on above: Order Comment: 109 Performed By: #### L 100.0100 ####[facility] [address] [place], [address] Erythrocyte distribution width (RBC) [Ratio] 13.2 % Normal 11.6-14.6 [facility] Comment on above: Order Comment: 109 Performed By: #### L 100.0100 ####[facility] [address] [place], [address] Hematocrit (Bld) [Volume fraction] 42.7 % Normal 40-54 [facility] Comment on above: Order Comment: 109 Performed By: #### L 100.0100 ####[facility] [address] [place], [address] Hemoglobin (Bld) [Mass/Vol] 13.9 g/dL Normal 13.0-16.5 [facility] Comment on above: Order Comment: 109 Performed By: #### L 100.0100 ####[facility] [address] [place], [address] IG% 0.300 Normal 0.0-0.9 [facility] Comment on above: Order Comment: 109 Result Comment: IG% - Immature Granulocytes (promyelocytes, myelocytes andmetamyelocytes) > 1% indicates that a LEFT SHIFT is Present. Performed By: #### L 100.0100 ####[facility] [address] [place], [address] Lymphocytes/100 WBC (Bld) 24.2 % Normal 19-41 [facility] Comment on above: Order Comment: 109 Performed By: #### L 100.0100 ####[facility] [address] [place], [address] MCH (RBC) [Entitic mass] 29.7 pg Normal 27.0-32.0 [facility] Comment on above: Order Comment: 109 Performed By: #### L 100.0100 ####[facility] [address] [place], [address] MCHC (RBC) [Mass/Vol] 32.6 g/dL Normal 32-36 [facility] Comment on above: Order Comment: 109 Performed By: #### L 100.0100 ####[facility] [address] [place], [address] MCV (RBC) [Entitic vol] 91.2 fL Normal 80-94 [facility] Comment on above: Order Comment: 109 Performed By: #### L 100.0100 ####[facility] [address] [place], [address] Monocytes/100 WBC (Bld) 8.6 % Normal 0-10 [facility] Comment on above: Order Comment: 109 Performed By: #### L 100.0100 ####[facility] [address] [place], [address] Neutrophils/100 WBC (Bld) 65.4 % Normal 47-70 [facility] Comment on above: Order Comment: 109 Performed By: #### L 100.0100 ####[facility] [address] [place], [address] Nucleated RBC (Bld) [#/Vol] 0 10*3/uL Normal 0-5 [facility] Comment on above: Order Comment: 109 Performed By: #### L 100.0100 ####[facility] [address] [place], [address] Platelet mean volume (Bld) [Entitic vol] 11.1 fL Normal 6.2-12.0 [facility] Comment on above: Order Comment: 109 Performed By: #### L 100.0100 ####[facility] [address] [place], [address] Platelets (Bld) [#/Vol] 232 10*3/uL Normal 150-450 [facility] Comment on above: Order Comment: 109 Performed By: #### L 100.0100 ####[facility] [address] [place], [address] RBC (Bld) [#/Vol] 4.68 10*6/uL Normal 4.6-6.2 [facility] Comment on above: Order Comment: 109 Performed By: #### L 100.0100 ####[facility] [address] [place], [address] RDW SD 44.1 fl High 35.1-43.9 [facility] Comment on above: Order Comment: 109 Performed By: #### L 100.0100 ####[facility] [address] [place], [address] WBC (Bld) [#/Vol] 7.3 10*3/uL Normal 4.4-11.0 [facility] Comment on above: Order Comment: 109 Performed By: #### L 100.0100 ####[facility] [address] [place], [address] Eosinophil percentageOrdered By: Renard Burgos on 10-14-2024 Eosinophils/100 WBC (Bld) 0.8 % 0-5 [facility] Erythrocyte distribution wid th ratioOrdered By: Renard Burgos on 10-14-2024 Erythrocyte distribution width (RBC) [Ratio] 13.2 % 11.6-14.6 [facility] Erythrocyte distribution wid th standard deviationOrdered By: Renard Burgos on 10-14-2024 Erythrocyte distribution width (RBC) [Ratio] 44.1 fl High 35.1-43.9 [facility] Hematocrit Auto (Bld) [Volum e fraction]Ordered By: Renard Burgos on 10-14-2024 Hematocrit (Bld) [Volume fraction] 42.7 % 40-54 [facility] Hemoglobin measurementOrdere d By: Renard Burgos on 10-14-2024 Hemoglobin (Bld) [Mass/Vol] 13.9 g/dL 13.0-16.5 [facility] Immature granulocytes/100 WB C Auto (Bld)Ordered By: Renard Burgos on 10-14-2024 Immature granulocytes/100 WBC (Bld) 0.300 % 0.0-0.9 [facility] Comment on above: IG% - Immature Granu locytes (promyelocytes, myelocytes and metamyelocytes) > 1% indicates that a LEFT SHIFT is Present. MCV (mean corpuscular volume ) determinationOrdered By: Renard Burgos on 10-14-2024 MCV (RBC) [Entitic vol] 91.2 fL 80-94 [facility] Mean corpuscular hemoglobin (MCH) determinationOrdered By: Renard Burgos on 10-14-2024 MCH (RBC) [Entitic mass] 29.7 pg 27.0-32.0 [facility] Mean corpuscular hemoglobin concentration (MCHC) determinationOrdered By: Renard Burgos on 10-14-2024 MCHC (RBC) [Mass/Vol] 32.6 g/dL 32-36 [facility] Mean platelet volume determi nationOrdered By: Renard Burgos on 10-14-2024 Platelet mean volume (Bld) [Entitic vol] 11.1 fL 6.2-12.0 [facility] Monocyte percentageOrdered B y: Renard Burgos on 10-14-2024 Monocytes/100 WBC (Bld) 8.6 % 0-10 [facility] Neutrophil percentageOrdered By: Renard Burgos on 10-14-2024 Neutrophils/100 WBC (Bld) 65.4 % 47-70 [facility] Nucleated red blood cell per centageOrdered By: Renard Burgos on 10-14-2024 Nucleated RBC/100 WBC (Bld) [Ratio] 0 % 0-5 [facility] Platelet countOrdered By: Garrick Bhatt on 10-14-2024 Platelets (Bld) [#/Vol] 232 10*3/uL 150-450 [facility] RBC Auto (Bld) [#/Vol]Ordere d By: Renard Burgos on 10-14-2024 RBC (Bld) [#/Vol] 4.68 10*6/uL 4.6-6.2 [facility] White blood cell (WBC) count Ordered By: Renard Burgos on 10-14-2024 WBC (Bld) [#/Vol] 7.3 10*3/uL 4.4-11.0 [facility] Absolute lymphocyte countOrd ered By: Renard Burgos on 10-07-2024 Lymphocytes Auto (Unsp spec) [#/Vol] 2.20 10*3/uL 0.83-4.51 [facility] Absolute neutrophil countOrd ered By: Renard Burgos on 10-07-2024 Neutrophils (Bld) [#/Vol] 5.1 10*3/uL 2.0-7.7 [facility] Automated lymphocyte count a s percentage of total leukocytesOrdered By: Renard Burgos on 10-07-2024 Lymphocytes/100 WBC Auto (Unsp spec) 27.2 % 19-41 [facility] Basophil percentageOrdered B y: Renard Burgos on 10-07-2024 Basophils/100 WBC (Bld) 0.5 % 0-1 [facility] CBC W/Diff, Automatedon Absolute Lymph 2.20 X10 3/uL Normal 0.83-4.51 [facility] Comment on above: Order Comment: 109-1 Performed By: #### L 100.0100 ####[facility] [id number] [place], [address] Absolute Neut 5.1 X10 3/uL Normal 2.0-7.7 [facility] Comment on above: Order Comment: 109-1 Performed By: #### L 100.0100 ####[facility] [address] [place], [address] Basophils/100 WBC (Bld) 0.5 % Normal 0-1 [facility] Comment on above: Order Comment: 109-1 Performed By: #### L 100.0100 ####[facility] [address] [place], [address] Eosinophils/100 WBC (Bld) 0.9 % Normal 0-5 [facility] Comment on above: Order Comment: 109-1 Performed By: #### L 100.0100 ####[facility] [address] [place], [address] Erythrocyte distribution width (RBC) [Ratio] 13.2 % Normal 11.6-14.6 [facility] Comment on above: Order Comment: 109-1 Performed By: #### L 100.0100 ####[facility] [address] [place], [address] Hematocrit (Bld) [Volume fraction] 40.8 % Normal 40-54 [facility] Comment on above: Order Comment: 109-1 Performed By: #### L 100.0100 ####[facility] [address] [place], [address] Hemoglobin (Bld) [Mass/Vol] 13.8 g/dL Normal 13.0-16.5 [facility] Comment on above: Order Comment: 109-1 Performed By: #### L 100.0100 ####[facility] [address] [place], [address] IG% 0.200 Normal 0.0-0.9 [facility] Comment on above: Order Comment: 109-1 Result Comment: IG% - Immature Granulocytes (promyelocytes, myelocytes andmetamyelocytes) > 1% indicates that a LEFT SHIFT is Present. Performed By: #### L 100.0100 ####[facility] [address] [place], [address] Lymphocytes/100 WBC (Bld) 27.2 % Normal 19-41 [facility] Comment on above: Order Comment: 109-1 Performed By: #### L 100.0100 ####[facility] [address] [place], [address] MCH (RBC) [Entitic mass] 30.0 pg Normal 27.0-32.0 [facility] Comment on above: Order Comment: 109-1 Performed By: #### L 100.0100 ####[facility] [address] [place], [address] MCHC (RBC) [Mass/Vol] 33.8 g/dL Normal 32-36 [facility] Comment on above: Order Comment: 109-1 Performed By: #### L 100.0100 ####[facility] [address] [place], [address] MCV (RBC) [Entitic vol] 88.7 fL Normal 80-94 [facility] Comment on above: Order Comment: 109-1 Performed By: #### L 100.0100 ####[facility] [address] [place], [address] Monocytes/100 WBC (Bld) 8.4 % Normal 0-10 [facility] Comment on above: Order Comment: 109-1 Performed By: #### L 100.0100 ####[facility] [address] [place], [address] Neutrophils/100 WBC (Bld) 62.8 % Normal 47-70 [facility] Comment on above: Order Comment: 109-1 Performed By: #### L 100.0100 ####[facility] [address] [place], [address] Nucleated RBC (Bld) [#/Vol] 0 10*3/uL Normal 0-5 [facility] Comment on above: Order Comment: 109-1 Performed By: #### L 100.0100 ####[facility] [address] [place], [address] Platelet mean volume (Bld) [Entitic vol] 11.2 fL Normal 6.2-12.0 [facility] Comment on above: Order Comment: 109-1 Performed By: #### L 100.0100 ####[facility] [address] [place], [address] Platelets (Bld) [#/Vol] 214 10*3/uL Normal 150-450 [facility] Comment on above: Order Comment: 109-1 Performed By: #### L 100.0100 ####[facility] [address] [place], [address] RBC (Bld) [#/Vol] 4.60 10*6/uL Normal 4.6-6.2 [facility] Comment on above: Order Comment: 109-1 Performed By: #### L 100.0100 ####[facility] [address] [place], [address] RDW SD 43.0 fl Normal 35.1-43.9 [facility] Comment on above: Order Comment: 109-1 Performed By: #### L 100.0100 ####[facility] [address] [place], [address] WBC (Bld) [#/Vol] 8.1 10*3/uL Normal 4.4-11.0 [facility] Comment on above: Order Comment: 109-1 Performed By: #### L 100.0100 ####[facility] [address] [place], [address] Eosinophil percentageOrdered By: Renard Burgos on 10-07-2024 Eosinophils/100 WBC (Bld) 0.9 % 0-5 [facility] Erythrocyte distribution wid th ratioOrdered By: Renard Burgos on 10-07-2024 Erythrocyte distribution width (RBC) [Ratio] 13.2 % 11.6-14.6 [facility] Erythrocyte distribution wid th standard deviationOrdered By: Renard Burgos on 10-07-2024 Erythrocyte distribution width (RBC) [Ratio] 43.0 fl 35.1-43.9 [facility] Hematocrit Auto (Bld) [Volum e fraction]Ordered By: Renard Burgos on 10-07-2024 Hematocrit (Bld) [Volume fraction] 40.8 % 40-54 [facility] Hemoglobin measurementOrdere d By: Renard Burgos on 10-07-2024 Hemoglobin (Bld) [Mass/Vol] 13.8 g/dL 13.0-16.5 [facility] Immature granulocytes/100 WB C Auto (Bld)Ordered By: Renard Burgos on 10-07-2024 Immature granulocytes/100 WBC (Bld) 0.200 % 0.0-0.9 [facility] Comment on above: IG% - Immature Granu locytes (promyelocytes, myelocytes and metamyelocytes) > 1% indicates that a LEFT SHIFT is Present. MCV (mean corpuscular volume ) determinationOrdered By: Renard Burgos on 10-07-2024 MCV (RBC) [Entitic vol] 88.7 fL 80-94 [facility] Mean corpuscular hemoglobin (MCH) determinationOrdered By: Renard Burgos on 10-07-2024 MCH (RBC) [Entitic mass] 30.0 pg 27.0-32.0 [facility] Mean corpuscular hemoglobin concentration (MCHC) determinationOrdered By: Renard Burgos on 10-07-2024 MCHC (RBC) [Mass/Vol] 33.8 g/dL 32-36 [facility] Mean platelet volume determi nationOrdered By: Renard Burgos on 10-07-2024 Platelet mean volume (Bld) [Entitic vol] 11.2 fL 6.2-12.0 [facility] Monocyte percentageOrdered B y: Renard Burgos on 10-07-2024 Monocytes/100 WBC (Bld) 8.4 % 0-10 [facility] Neutrophil percentageOrdered By: Renard Burgos on 10-07-2024 Neutrophils/100 WBC (Bld) 62.8 % 47-70 [facility] Nucleated red blood cell per centageOrdered By: Renard Burgos on 10-07-2024 Nucleated RBC/100 WBC (Bld) [Ratio] 0 % 0-5 [facility] Platelet countOrdered By: Garrick Bhatt on 10-07-2024 Platelets (Bld) [#/Vol] 214 10*3/uL 150-450 [facility] RBC Auto (Bld) [#/Vol]Ordere d By: Renard Burgos on 10-07-2024 RBC (Bld) [#/Vol] 4.60 10*6/uL 4.6-6.2 [facility] White blood cell (WBC) count Ordered By: Renard Burgos on 10-07-2024 WBC (Bld) [#/Vol] 8.1 10*3/uL 4.4-11.0 [facility] Absolute lymphocyte countOrd ered By: Renard Burgos on 09-30-2024 Lymphocytes Auto (Unsp spec) [#/Vol] 3.13 10*3/uL 0.83-4.51 [facility] Absolute neutrophil countOrd ered By: Renard Hensleyrustam on 09-30-2024 Neutrophils (Bld) [#/Vol] 5.6 10*3/uL 2.0-7.7 [facility] Automated lymphocyte count a s percentage of total leukocytesOrdered By: Renard Burgos on 09-30-2024 Lymphocytes/100 WBC Auto (Unsp spec) 31.7 % 19-41 [facility] Basophil percentageOrdered B y: Renard Burgos on 09-30-2024 Basophils/100 WBC (Bld) 0.6 % 0-1 [facility] CBC W/Diff, Automatedon Absolute Lymph 3.13 X10 3/uL Normal 0.83-4.51 [facility] Comment on above: Order Comment: 109-1 Performed By: #### L 100.0100 ####[facility] [address] [place], [address] Absolute Neut 5.6 X10 3/uL Normal 2.0-7.7 [facility] Comment on above: Order Comment: 109-1 Performed By: #### L 100.0100 ####[facility] [address] [place], [address] Basophils/100 WBC (Bld) 0.6 % Normal 0-1 [facility] Comment on above: Order Comment: 109-1 Performed By: #### L 100.0100 ####[facility] [address] [place], [address] Eosinophils/100 WBC (Bld) 0.7 % Normal 0-5 [facility] Comment on above: Order Comment: 109-1 Performed By: #### L 100.0100 ####[facility] [address] [place], [address] Erythrocyte distribution width (RBC) [Ratio] 13.0 % Normal 11.6-14.6 [facility] Comment on above: Order Comment: 109-1 Performed By: #### L 100.0100 ####[facility] [address] [place], [address] Hematocrit (Bld) [Volume fraction] 46.9 % Normal 40-54 [facility] Comment on above: Order Comment: 109-1 Performed By: #### L 100.0100 ####[facility] [address] [place], [address] Hemoglobin (Bld) [Mass/Vol] 15.3 g/dL Normal 13.0-16.5 [facility] Comment on above: Order Comment: 109-1 Performed By: #### L 100.0100 ####[facility] [address] [place], [address] IG% 0.300 Normal 0.0-0.9 [facility] Comment on above: Order Comment: 109-1 Result Comment: IG% - Immature Granulocytes (promyelocytes, myelocytes andmetamyelocytes) > 1% indicates that a LEFT SHIFT is Present. Performed By: #### L 100.0100 ####[facility] [address] [place], [address] Lymphocytes/100 WBC (Bld) 31.7 % Normal 19-41 [facility] Comment on above: Order Comment: 109-1 Performed By: #### L 100.0100 ####[facility] [address] [place], [address] MCH (RBC) [Entitic mass] 29.7 pg Normal 27.0-32.0 [facility] Comment on above: Order Comment: 109-1 Performed By: #### L 100.0100 ####[facility] [address] [place], [address] MCHC (RBC) [Mass/Vol] 32.6 g/dL Normal 32-36 [facility] Comment on above: Order Comment: 109-1 Performed By: #### L 100.0100 ####[facility] [address] [place], [address] MCV (RBC) [Entitic vol] 91.1 fL Normal 80-94 [facility] Comment on above: Order Comment: 109-1 Performed By: #### L 100.0100 ####[facility] [address] [place], [address] Monocytes/100 WBC (Bld) 10.4 % High 0-10 [facility] Comment on above: Order Comment: 109-1 Performed By: #### L 100.0100 ####[facility] [address] [place], [address] Neutrophils/100 WBC (Bld) 56.3 % Normal 47-70 [facility] Comment on above: Order Comment: 109-1 Performed By: #### L 100.0100 ####[facility] [address] [place], [address] Nucleated RBC (Bld) [#/Vol] 0 10*3/uL Normal 0-5 [facility] Comment on above: Order Comment: 109-1 Performed By: #### L 100.0100 ####[facility] [address] [place], [address] Platelet mean volume (Bld) [Entitic vol] 11.7 fL Normal 6.2-12.0 [facility] Comment on above: Order Comment: 109-1 Performed By: #### L 100.0100 ####[facility] [address] [place], [address] Platelets (Bld) [#/Vol] 208 10*3/uL Normal 150-450 [facility] Comment on above: Order Comment: 109-1 Performed By: #### L 100.0100 ####[facility] [address] [place], [address] RBC (Bld) [#/Vol] 5.15 10*6/uL Normal 4.6-6.2 [facility] Comment on above: Order Comment: 109-1 Performed By: #### L 100.0100 ####[facility] [address] [place], [address] RDW SD 42.7 fl Normal 35.1-43.9 [facility] Comment on above: Order Comment: 109-1 Performed By: #### L 100.0100 ####[facility] [address] [place], [address] WBC (Bld) [#/Vol] 9.9 10*3/uL Normal 4.4-11.0 [facility] Comment on above: Order Comment: 109-1 Performed By: #### L 100.0100 ####[facility] [address] [place], [address] Eosinophil percentageOrdered By: Renard Burgos on 09-30-2024 Eosinophils/100 WBC (Bld) 0.7 % 0-5 [facility] Erythrocyte distribution wid th ratioOrdered By: Renard Burgos on 09-30-2024 Erythrocyte distribution width (RBC) [Ratio] 13.0 % 11.6-14.6 [facility] Erythrocyte distribution wid th standard deviationOrdered By: Renard Burgos on 09-30-2024 Erythrocyte distribution width (RBC) [Ratio] 42.7 fl 35.1-43.9 [facility] Hematocrit Auto (Bld) [Volum e fraction]Ordered By: Renard Burgos on 09-30-2024 Hematocrit (Bld) [Volume fraction] 46.9 % 40-54 [facility] Hemoglobin measurementOrdere d By: Renard Burgos on 09-30-2024 Hemoglobin (Bld) [Mass/Vol] 15.3 g/dL 13.0-16.5 [facility] Immature granulocytes/100 WB C Auto (Bld)Ordered By: Renard Burgos on 09-30-2024 Immature granulocytes/100 WBC (Bld) 0.300 % 0.0-0.9 [facility] Comment on above: IG% - Immature Granu locytes (promyelocytes, myelocytes and metamyelocytes) > 1% indicates that a LEFT SHIFT is Present. MCV (mean corpuscular volume ) determinationOrdered By: Renard Burgos on 09-30-2024 MCV (RBC) [Entitic vol] 91.1 fL 80-94 [facility] Mean corpuscular hemoglobin (MCH) determinationOrdered By: Renard Burgos on 09-30-2024 MCH (RBC) [Entitic mass] 29.7 pg 27.0-32.0 [facility] Mean corpuscular hemoglobin concentration (MCHC) determinationOrdered By: Renard Burgos on 09-30-2024 MCHC (RBC) [Mass/Vol] 32.6 g/dL 32-36 [facility] Mean platelet volume determi nationOrdered By: Renard Burgos on 09-30-2024 Platelet mean volume (Bld) [Entitic vol] 11.7 fL 6.2-12.0 [facility] Monocyte percentageOrdered B y: Renard Burgos on 09-30-2024 Monocytes/100 WBC (Bld) 10.4 % High 0-10 [facility] Neutrophil percentageOrdered By: Renard Burgos on 09-30-2024 Neutrophils/100 WBC (Bld) 56.3 % 47-70 [facility] Nucleated red blood cell per centageOrdered By: Renard Burgos on 09-30-2024 Nucleated RBC/100 WBC (Bld) [Ratio] 0 % 0-5 [facility] Platelet countOrdered By: Garrick Bhatt on 09-30-2024 Platelets (Bld) [#/Vol] 208 10*3/uL 150-450 [facility] RBC Auto (Bld) [#/Vol]Ordere d By: Renard Burgos on 09-30-2024 RBC (Bld) [#/Vol] 5.15 10*6/uL 4.6-6.2 [facility] White blood cell (WBC) count Ordered By: Renard Burgos on 09-30-2024 WBC (Bld) [#/Vol] 9.9 10*3/uL 4.4-11.0 [facility] Absolute lymphocyte countOrd ered By: Renard Burgos on 09-24-2024 Lymphocytes Auto (Unsp spec) [#/Vol] 1.97 10*3/uL 0.83-4.51 [facility] Absolute neutrophil countOrd ered By: Renard Burgos on 09-24-2024 Neutrophils (Bld) [#/Vol] 6.8 10*3/uL 2.0-7.7 [facility] Automated blood erythrocyte countOrdered By: Renard Burgos on 09-24-2024 RBC (Bld) [#/Vol] 4.48 10*6/uL Low 4.6-6.2 [facility] Comment on above: Order Comment: 109 Performed By: #### L 100.0100 ####[facility] [address] [facility] [address] Automated blood hematocrit ( percentage)Ordered By: Renard Burgos on 09-24-2024 Hematocrit (Bld) [Volume fraction] 40.4 % Normal 40-54 [facility] Comment on above: Order Comment: 109 Performed By: #### L 100.0100 ####[facility] [address] [place], [place], [id number] Automated lymphocyte count a s percentage of total leukocytesOrdered By: Renard Burgos on 09-24-2024 Lymphocytes/100 WBC Auto (Unsp spec) 20.5 % 19-41 [facility] Basophil percentageOrdered B y: Renard Burgos on 09-24-2024 Basophils/100 WBC (Bld) 0.5 % Normal 0-1 [facility] Comment on above: Order Comment: 109 Performed By: #### L 100.0100 ####[facility] [address] [place], [address] CBC W/Diff, Automatedon 08-30 Absolute Lymph 1.97 X10 3/uL Normal 0.83-4.51 [facility] Comment on above: Order Comment: 109 Performed By: #### L 100.0100 ####[facility] [address] [place], [address] Absolute Neut 6.8 X10 3/uL Normal 2.0-7.7 [facility] Comment on above: Order Comment: 109 Performed By: #### L 100.0100 ####[facility] [address] [place], [address] IG% 0.300 Normal 0.0-0.9 [facility] Comment on above: Order Comment: 109 Result Comment: IG% - Immature Granulocytes (promyelocytes, myelocytes andmetamyelocytes) > 1% indicates that a LEFT SHIFT is Present. Performed By: #### L 100.0100 ####[facility] [address] [place], [address] Lymphocytes/100 WBC (Bld) 20.5 % Normal 19-41 [facility] Comment on above: Order Comment: 109 Performed By: #### L 100.0100 ####[facility] [address] [place], [address] Nucleated RBC (Bld) [#/Vol] 0 10*3/uL Normal 0-5 [facility] Comment on above: Order Comment: 109 Performed By: #### L 100.0100 ####[facility] [address] [place], [address] RDW SD 42.9 fl Normal 35.1-43.9 [facility] Comment on above: Order Comment: 109 Performed By: #### L 100.0100 ####[facility] [address] [place], [address] Eosinophil percentageOrdered By: Renard Burgos on 09-24-2024 Eosinophils/100 WBC (Bld) 0.5 % Normal 0-5 [facility] Comment on above: Order Comment: 109 Performed By: #### L 100.0100 ####[facility] [address] [place], [address] Erythrocyte distribution wid th ratioOrdered By: Renard Burgos on 09-24-2024 Erythrocyte distribution width (RBC) [Ratio] 13.1 % Normal 11.6-14.6 [facility] Comment on above: Order Comment: 109 Performed By: #### L 100.0100 ####[facility] [address] [place], [place], [address] Erythrocyte distribution wid th standard deviationOrdered By: Renard Burgos on 09-24-2024 Erythrocyte distribution width (RBC) [Ratio] 42.9 fl 35.1-43.9 [facility] Hemoglobin measurementOrdere d By: Renard Burgos on 09-24-2024 Hemoglobin (Bld) [Mass/Vol] 13.4 g/dL Normal 13.0-16.5 [facility] Comment on above: Order Comment: 109 Performed By: #### L 100.0100 ####[facility] [address] [place], [address] Immature granulocytes/100 WB C Auto (Bld)Ordered By: Renard Burgos on 09-24-2024 Immature granulocytes/100 WBC (Bld) 0.300 % 0.0-0.9 [facility] Comment on above: IG% - Immature Granu locytes (promyelocytes, myelocytes and metamyelocytes) > 1% indicates that a LEFT SHIFT is Present. MCV (mean corpuscular volume ) determinationOrdered By: Renard Burgos on 09-24-2024 MCV (RBC) [Entitic vol] 90.2 fL Normal 80-94 [facility] Comment on above: Order Comment: 109 Performed By: #### L 100.0100 ####[facility] [address] [place], [place], [id number] Mean corpuscular hemoglobin (MCH) determinationOrdered By: Renard Burgos on 09-24-2024 MCH (RBC) [Entitic mass] 29.9 pg Normal 27.0-32.0 [facility] Comment on above: Order Comment: 109 Performed By: #### L 100.0100 ####[facility] [address] [place], [address] Mean corpuscular hemoglobin concentration (MCHC) determinationOrdered By: Renard Burgos on 09-24-2024 MCHC (RBC) [Mass/Vol] 33.2 g/dL Normal 32-36 [facility] Comment on above: Order Comment: 109 Performed By: #### L 100.0100 ####[facility] [address] [place], [address] Mean platelet volume determi nationOrdered By: Renard Burgos on 09-24-2024 Platelet mean volume (Bld) [Entitic vol] 11.3 fL Normal 6.2-12.0 [facility] Comment on above: Order Comment: 109 Performed By: #### L 100.0100 ####[facility] [address] [place], [address] Monocyte percentageOrdered B y: Renard Burgos on 09-24-2024 Monocytes/100 WBC (Bld) 7.2 % Normal 0-10 [facility] Comment on above: Order Comment: 109 Performed By: #### L 100.0100 ####[facility] [address] [place], [address] Neutrophil percentageOrdered By: Renard Burgos on 09-24-2024 Neutrophils/100 WBC (Bld) 71.0 % High 47-70 [facility] Comment on above: Order Comment: 109 Performed By: #### L 100.0100 ####[facility] [address] [place], [address] Nucleated red blood cell per centageOrdered By: Renard Burgos on 09-24-2024 Nucleated RBC/100 WBC (Bld) [Ratio] 0 % 0-5 [facility] Platelet countOrdered By: Garrick Bhatt on 09-24-2024 Platelets (Bld) [#/Vol] 187 10*3/uL Normal 150-450 [facility] Comment on above: Order Comment: 109 Performed By: #### L 100.0100 ####[facility] [address] [place], [address] White blood cell (WBC) count Ordered By: Renard Burgos on 09-24-2024 WBC (Bld) [#/Vol] 9.6 10*3/uL Normal 4.4-11.0 [facility] Comment on above: Order Comment: 109 Performed By: #### L 100.0100 ####[facility] [address] [place], [address] Absolute lymphocyte countOrd ered By: Renard Burgos on 09-16-2024 Lymphocytes Auto (Unsp spec) [#/Vol] 2.44 10*3/uL 0.83-4.51 [facility] Absolute neutrophil countOrd ered By: Renard Burgos on 09-16-2024 Neutrophils (Bld) [#/Vol] 5.5 10*3/uL 2.0-7.7 [facility] Automated lymphocyte count a s percentage of total leukocytesOrdered By: Renard Burgos on 09-16-2024 Lymphocytes/100 WBC Auto (Unsp spec) 27.7 % - [facility] Basophil percentageOrdered B y: Renard Burgos on 09-16-2024 Basophils/100 WBC (Bld) 0.8 % 0-1 [facility] CBC W/Diff, Automatedon 08-29 Absolute Lymph 2.44 X10 3/uL Normal 0.83-4.51 [facility] Comment on above: Order Comment: 109.1 Performed By: #### L 100.0100 ####[facility] [address] [place], [address] Absolute Neut 5.5 X10 3/uL Normal 2.0-7.7 [facility] Comment on above: Order Comment: 109.1 Performed By: #### L 100.0100 ####[facility] [address] [place], [address] Basophils/100 WBC (Bld) 0.8 % Normal 0-1 [facility] Comment on above: Order Comment: 109.1 Performed By: #### L 100.0100 ####[facility] [address] [place], [address] Eosinophils/100 WBC (Bld) 0.7 % Normal 0-5 [facility] Comment on above: Order Comment: 109.1 Performed By: #### L 100.0100 ####[facility] [address] [place], [address] Erythrocyte distribution width (RBC) [Ratio] 13.1 % Normal 11.6-14.6 [facility] Comment on above: Order Comment: 109.1 Performed By: #### L 100.0100 ####[facility] [address] [place], [address] Hematocrit (Bld) [Volume fraction] 46.8 % Normal 40-54 [facility] Comment on above: Order Comment: 109.1 Performed By: #### L 100.0100 ####[facility] [address] [place], [address] Hemoglobin (Bld) [Mass/Vol] 15.4 g/dL Normal 13.0-16.5 [facility] Comment on above: Order Comment: 109.1 Performed By: #### L 100.0100 ####[facility] [address] [place], [address] IG% 0.200 Normal 0.0-0.9 [facility] Comment on above: Order Comment: 109.1 Result Comment: IG% - Immature Granulocytes (promyelocytes, myelocytes andmetamyelocytes) > 1% indicates that a LEFT SHIFT is Present. Performed By: #### L 100.0100 ####[facility] [address] [place], [address] Lymphocytes/100 WBC (Bld) 27.7 % Normal 19-41 [facility] Comment on above: Order Comment: 109.1 Performed By: #### L 100.0100 ####[facility] [address] [place], [address] MCH (RBC) [Entitic mass] 30.1 pg Normal 27.0-32.0 [facility] Comment on above: Order Comment: 109.1 Performed By: #### L 100.0100 ####[facility] [address] [place], [address] MCHC (RBC) [Mass/Vol] 32.9 g/dL Normal 32-36 [facility] Comment on above: Order Comment: 109.1 Performed By: #### L 100.0100 ####[facility] [address] [place], [address] MCV (RBC) [Entitic vol] 91.4 fL Normal 80-94 [facility] Comment on above: Order Comment: 109.1 Performed By: #### L 100.0100 ####[facility] [address] [place], [address] Monocytes/100 WBC (Bld) 8.5 % Normal 0-10 [facility] Comment on above: Order Comment: 109.1 Performed By: #### L 100.0100 ####[facility] [address] [place], [address] Neutrophils/100 WBC (Bld) 62.1 % Normal 47-70 [facility] Comment on above: Order Comment: 109.1 Performed By: #### L 100.0100 ####[facility] [address] [place], [address] Nucleated RBC (Bld) [#/Vol] 0 10*3/uL Normal 0-5 [facility] Comment on above: Order Comment: 109.1 Performed By: #### L 100.0100 ####[facility] [address] [place], [address] Platelet mean volume (Bld) [Entitic vol] 10.6 fL Normal 6.2-12.0 [facility] Comment on above: Order Comment: 109.1 Performed By: #### L 100.0100 ####[facility] [address] [place], [address] Platelets (Bld) [#/Vol] 190 10*3/uL Normal 150-450 [facility] Comment on above: Order Comment: 109.1 Performed By: #### L 100.0100 ####[facility] [address] [place], [address] RBC (Bld) [#/Vol] 5.12 10*6/uL Normal 4.6-6.2 [facility] Comment on above: Order Comment: 109.1 Performed By: #### L 100.0100 ####[facility] [address] [place], [address] RDW SD 43.3 fl Normal 35.1-43.9 [facility] Comment on above: Order Comment: 109.1 Performed By: #### L 100.0100 ####[facility] [address] [place], [address] WBC (Bld) [#/Vol] 8.8 10*3/uL Normal 4.4-11.0 [facility] Comment on above: Order Comment: 109.1 Performed By: #### L 100.0100 ####[facility] [address] [place], [address] Eosinophil percentageOrdered By: Renard Burgos on 09-16-2024 Eosinophils/100 WBC (Bld) 0.7 % 0-5 [facility] Erythrocyte distribution wid th ratioOrdered By: Renard Burgos on 09-16-2024 Erythrocyte distribution width (RBC) [Ratio] 13.1 % 11.6-14.6 [facility] Erythrocyte distribution wid th standard deviationOrdered By: Renard Burgos on 09-16-2024 Erythrocyte distribution width (RBC) [Ratio] 43.3 fl 35.1-43.9 [facility] Hematocrit Auto (Bld) [Volum e fraction]Ordered By: Renard Burgos on 09-16-2024 Hematocrit (Bld) [Volume fraction] 46.8 % 40-54 [facility] Hemoglobin measurementOrdere d By: Renard Burgos on 09-16-2024 Hemoglobin (Bld) [Mass/Vol] 15.4 g/dL 13.0-16.5 [facility] Immature granulocytes/100 WB C Auto (Bld)Ordered By: Renard Burgos on 09-16-2024 Immature granulocytes/100 WBC (Bld) 0.200 % 0.0-0.9 [facility] Comment on above: IG% - Immature Granu locytes (promyelocytes, myelocytes and metamyelocytes) > 1% indicates that a LEFT SHIFT is Present. MCV (mean corpuscular volume ) determinationOrdered By: Renard Burgos on 09-16-2024 MCV (RBC) [Entitic vol] 91.4 fL 80-94 [facility] Mean corpuscular hemoglobin (MCH) determinationOrdered By: Renard Burgos on 09-16-2024 MCH (RBC) [Entitic mass] 30.1 pg 27.0-32.0 [facility] Mean corpuscular hemoglobin concentration (MCHC) determinationOrdered By: Renard Burgos on 09-16-2024 MCHC (RBC) [Mass/Vol] 32.9 g/dL 32-36 [facility] Mean platelet volume determi nationOrdered By: Renard Burgos on 09-16-2024 Platelet mean volume (Bld) [Entitic vol] 10.6 fL 6.2-12.0 [facility] Monocyte percentageOrdered B y: Renard Burgos on 09-16-2024 Monocytes/100 WBC (Bld) 8.5 % 0-10 [facility] Neutrophil percentageOrdered By: Renard Burgos on 09-16-2024 Neutrophils/100 WBC (Bld) 62.1 % 47-70 [facility] Nucleated red blood cell per centageOrdered By: Renard Burgos on 09-16-2024 Nucleated RBC/100 WBC (Bld) [Ratio] 0 % 0-5 [facility] Platelet countOrdered By: Garrick Bhatt on 05-19-2025 Platelets (Bld) [#/Vol] 190 10*3/uL 150-450 [facility] RBC Auto (Bld) [#/Vol]Ordere d By: Renard Burgos on 09-16-2024 RBC (Bld) [#/Vol] 5.12 10*6/uL 4.6-6.2 [facility] White blood cell (WBC) count Ordered By: Renard Burgos on 09-16-2024 WBC (Bld) [#/Vol] 8.8 10*3/uL 4.4-11.0 [facility] Anion gap in Serum or Plasma Ordered By: Renard Burgos on 09-11-2024 Anion gap [Moles/Vol] 11 mmol/L 5-15 [facility] Automated blood erythrocyte countOrdered By: Renard Burgos on 09-11-2024 RBC (Bld) [#/Vol] 4.67 10*6/uL Normal 4.6-6.2 [facility] Comment on above: Order Comment: 109-1 Performed By: #### L 100.0500, L500.2500 ####[facility] [address] [place], [address] Automated blood hematocrit ( percentage)Ordered By: Renard Burgos on 09-11-2024 Hematocrit (Bld) [Volume fraction] 42.7 % Normal 40-54 [facility] Comment on above: Order Comment: 109-1 Performed By: #### L 100.0500, L500.2500 ####[facility] [address] [place], [address] BUN/creatinine ratioOrdered By: Renard Burgos on 09-11-2024 Urea nitrogen/Creatinine [Mass ratio] 23.0 mg/mg High - [facility] Basic Metabolic Profile (BMP )on 09-11-2024 BUN/CRE 23.0 RATIO High - [facility] Comment on above: Order Comment: 109-1 Performed By: #### L 100.0500, L500.2500 ####[facility] [address] [place], [address] Calcium [Mass/Vol] 8.7 mg/dL Normal 7.6-11.0 [facility] Comment on above: Order Comment: 109-1 Performed By: #### L 100.0500, L500.2500 ####[facility] [address] [place], [address] Chloride [Moles/Vol] 104 mmol/L Normal 98-108 [facility] Comment on above: Order Comment: 109-1 Performed By: #### L 100.0500, L500.2500 ####[facility] [address] [place], [address] CO2 [Moles/Vol] 25.9 mmol/L Normal 21.0-32.0 [facility] Comment on above: Order Comment: 109-1 Performed By: #### L 100.0500, L500.2500 ####[facility] [address] [place], [address] Creatinine [Mass/Vol] 0.58 mg/dL Low 0.70-1.20 [facility] Comment on above: Order Comment: 109-1 Performed By: #### L 100.0500, L500.2500 ####[facility] [address] [place], [address] GAP 11 Normal 5-15 [facility] Comment on above: Order Comment: 109-1 Performed By: #### L 100.0500, L500.2500 ####[facility] [address] [place], [address] GFR/1.73 sq M.predicted among non-blacks MDRD (S/P/Bld) [Vol rate/Area] 107 mL/min/{1.73_m2} Normal >60 [facility] Comment on above: Order Comment: 109-1 Result Comment: mL/m in/1.73m2 CKD-EPI Creatinine Equation (2020) Performed By: #### L 100.0500, L500.2500 ####[facility] [address] [place], [address] Glucose [Mass/Vol] 113 mg/dL High 70-99 [facility] Comment on above: Order Comment: 109-1 Performed By: #### L 100.0500, L500.2500 ####[facility] [address] [place], [address] Potassium [Moles/Vol] 3.8 mmol/L Normal 3.3-5.1 [facility] Comment on above: Order Comment: 109-1 Performed By: #### L 100.0500, L500.2500 ####[facility] [address] [place], [address] Sodium [Moles/Vol] 141 mmol/L Normal 133-145 [facility] Comment on above: Order Comment: 109-1 Performed By: #### L 100.0500, L500.2500 ####[facility] [address] [place], [address] Urea nitrogen [Mass/Vol] 13 mg/dL Normal 4-19 [facility] Comment on above: Order Comment: 109-1 Performed By: #### L 100.0500, L500.2500 ####[facility] [address] [place], [address] CBC-Complete Blood Cnt No Di ffon 09-11-2024 RDW SD 43.7 fl Normal 35.1-43.9 [facility] Comment on above: Order Comment: 109-1 Performed By: #### L 100.0500, L500.2500 ####[facility] [address] [place], [address] Carbon dioxide, total [Moles /volume] in Central venous bloodOrdered By: Renard Burgos on 09-11-2024 CO2 [Moles/Vol] 25.9 mmol/L 21.0-32.0 [facility] Chloride assayOrdered By: Garrick Bhatt on 09-11-2024 Chloride [Moles/Vol] 104 mmol/L 98-108 [facility] Erythrocyte distribution wid th ratioOrdered By: Renard Burgos on 09-11-2024 Erythrocyte distribution width (RBC) [Ratio] 13.2 % Normal 11.6-14.6 [facility] Comment on above: Order Comment: 109-1 Performed By: #### L 100.0500, L500.2500 ####[facility] [address] [place], [place], [id number] Erythrocyte distribution wid th standard deviationOrdered By: Renard Burgos on 09-11-2024 Erythrocyte distribution width (RBC) [Ratio] 43.7 fl 35.1-43.9 [facility] Glomerular filtration rate ( GFR) estimation/1.73 sq m using serum, plasma, or whole bOrdered By: Renard Burgos on 09-11-2024 GFR/1.73 sq M.predicted among non-blacks MDRD (S/P/Bld) [Vol rate/Area] 107 mL/min/{1.73_m2} >60 [facility] Comment on above: mL/min/1.73m2 CKD-EP I Creatinine Equation (2020) Hemoglobin measurementOrdere d By: Renard Burgos on 09-11-2024 Hemoglobin (Bld) [Mass/Vol] 14.0 g/dL Normal 13.0-16.5 [facility] Comment on above: Order Comment: 109-1 Performed By: #### L 100.0500, L500.2500 ####[facility] [address] [place], [address] MCV (mean corpuscular volume ) determinationOrdered By: Renard Burgos on 09-11-2024 MCV (RBC) [Entitic vol] 91.4 fL Normal 80-94 [facility] Comment on above: Order Comment: 109-1 Performed By: #### L 100.0500, L500.2500 ####[facility] [address] [place], [address] Mean corpuscular hemoglobin (MCH) determinationOrdered By: Renard Burgos on 09-11-2024 MCH (RBC) [Entitic mass] 30.0 pg Normal 27.0-32.0 [facility] Comment on above: Order Comment: 109-1 Performed By: #### L 100.0500, L500.2500 ####[facility] [address] [place], [address] Mean corpuscular hemoglobin concentration (MCHC) determinationOrdered By: Renard Burgos on 09-11-2024 MCHC (RBC) [Mass/Vol] 32.8 g/dL Normal 32-36 [facility] Comment on above: Order Comment: 109-1 Performed By: #### L 100.0500, L500.2500 ####[facility] [address] [place], [address] Mean platelet volume determi nationOrdered By: Renard Burgos on 09-11-2024 Platelet mean volume (Bld) [Entitic vol] 11.3 fL Normal 6.2-12.0 [facility] Comment on above: Order Comment: 109-1 Performed By: #### L 100.0500, L500.2500 ####[facility] [address], [address] Platelet countOrdered By: Garrick Bhatt on 09-11-2024 Platelets (Bld) [#/Vol] 191 10*3/uL Normal 150-450 [facility] Comment on above: Order Comment: 109-1 Performed By: #### L 100.0500, L500.2500 ####[facility] [address] [place], [address] Potassium measurement (mass/ volume)Ordered By: Renard Burgos on 09-11-2024 Potassium (Unsp spec) [Mass/Vol] 3.8 mmol/L 3.3-5.1 [facility] Serum creatinine measurement (mass/volume)Ordered By: Renard Burgos on 09-11-2024 Creatinine [Mass/Vol] 0.58 mg/dL Low 0.70-1.20 [facility] Serum glucose measurement (m ass/volume)Ordered By: Renard Burgos on 09-11-2024 Glucose [Mass/Vol] 113 mg/dL High 70-99 [facility] Serum or plasma calcium gordy urement (mass/volume)Ordered By: Renard Burgos on 09-11-2024 Calcium [Mass/Vol] 8.7 mg/dL 7.6-11.0 [facility] Serum or plasma urea nitroge n measurement (mass/volume)Ordered By: Renard Burgos on 09-11-2024 Urea nitrogen [Mass/Vol] 13 mg/dL 4-19 [facility] Sodium levelOrdered By: Lamine Burgos on 09-11-2024 Sodium [Moles/Vol] 141 mmol/L 133-145 [facility] White blood cell (WBC) count Ordered By: Renard Burgos on 09-11-2024 WBC (Bld) [#/Vol] 7.6 10*3/uL Normal 4.4-11.0 [facility] Comment on above: Order Comment: 109-1 Performed By: #### L 100.0500, L500.2500 ####[facility] [address] [place], [place], [id number] Absolute lymphocyte countOrd ered By: Renard Burgos on 09-09-2024 Lymphocytes Auto (Unsp spec) [#/Vol] 2.24 10*3/uL 0.83-4.51 [facility] Absolute neutrophil countOrd ered By: Renard Burgos on 09-09-2024 Neutrophils (Bld) [#/Vol] 8.7 10*3/uL High 2.0-7.7 [facility] Automated lymphocyte count a s percentage of total leukocytesOrdered By: Renard Burgos on 09-09-2024 Lymphocytes/100 WBC Auto (Unsp spec) 19.1 % - [facility] Basophil percentageOrdered B y: Renard Burgos on 09-09-2024 Basophils/100 WBC (Bld) 0.4 % 0-1 [facility] CBC W/Diff, Automatedon 08-29 Absolute Lymph 2.24 X10 3/uL Normal 0.83-4.51 [facility] Comment on above: Order Comment: 109-1 Performed By: #### L 100.0100 ####[facility] [address] [place], [address] Absolute Neut 8.7 X10 3/uL High 2.0-7.7 [facility] Comment on above: Order Comment: 109-1 Performed By: #### L 100.0100 ####[facility] [address] [place], [address] Basophils/100 WBC (Bld) 0.4 % Normal 0-1 [facility] Comment on above: Order Comment: 109-1 Performed By: #### L 100.0100 ####[facility] [address] [place], [address] Eosinophils/100 WBC (Bld) 0.5 % Normal 0-5 [facility] Comment on above: Order Comment: 109-1 Performed By: #### L 100.0100 ####[facility] [address] [place], [address] Erythrocyte distribution width (RBC) [Ratio] 13.0 % Normal 11.6-14.6 [facility] Comment on above: Order Comment: 109-1 Performed By: #### L 100.0100 ####[facility] [address] [place], [address] Hematocrit (Bld) [Volume fraction] 44.7 % Normal 40-54 [facility] Comment on above: Order Comment: 109-1 Performed By: #### L 100.0100 ####[facility] [address] [place], [address] Hemoglobin (Bld) [Mass/Vol] 14.6 g/dL Normal 13.0-16.5 [facility] Comment on above: Order Comment: 109-1 Performed By: #### L 100.0100 ####[facility] [address] [place], [address] IG% 0.300 Normal 0.0-0.9 [facility] Comment on above: Order Comment: 109-1 Result Comment: IG% - Immature Granulocytes (promyelocytes, myelocytes andmetamyelocytes) > 1% indicates that a LEFT SHIFT is Present. Performed By: #### L 100.0100 ####[facility] [address] [place], [address] Lymphocytes/100 WBC (Bld) 19.1 % Normal 19-41 [facility] Comment on above: Order Comment: 109-1 Performed By: #### L 100.0100 ####[facility] [address] [place], [address] MCH (RBC) [Entitic mass] 30.1 pg Normal 27.0-32.0 [facility] Comment on above: Order Comment: 109-1 Performed By: #### L 100.0100 ####[facility] [address] [place], [address] MCHC (RBC) [Mass/Vol] 32.7 g/dL Normal 32-36 [facility] Comment on above: Order Comment: 109-1 Performed By: #### L 100.0100 ####[facility] [address] [place], [address] MCV (RBC) [Entitic vol] 92.2 fL Normal 80-94 [facility] Comment on above: Order Comment: 109-1 Performed By: #### L 100.0100 ####[facility] [address] [place], [address] Monocytes/100 WBC (Bld) 5.1 % Normal 0-10 [facility] Comment on above: Order Comment: 109-1 Performed By: #### L 100.0100 ####[facility] [address] [place], [address] Neutrophils/100 WBC (Bld) 74.6 % High 47-70 [facility] Comment on above: Order Comment: 109-1 Performed By: #### L 100.0100 ####[facility] [address] [place], [address] Nucleated RBC (Bld) [#/Vol] 0 10*3/uL Normal 0-5 [facility] Comment on above: Order Comment: 109-1 Performed By: #### L 100.0100 ####[facility] [address] [place], [address] Platelet mean volume (Bld) [Entitic vol] 11.6 fL Normal 6.2-12.0 [facility] Comment on above: Order Comment: 109-1 Performed By: #### L 100.0100 ####[facility] [address] [place], [address] Platelets (Bld) [#/Vol] 189 10*3/uL Normal 150-450 [facility] Comment on above: Order Comment: 109-1 Performed By: #### L 100.0100 ####[facility] [address] [place], [address] RBC (Bld) [#/Vol] 4.85 10*6/uL Normal 4.6-6.2 [facility] Comment on above: Order Comment: 109-1 Performed By: #### L 100.0100 ####[facility] [address] [place], [address] RDW SD 43.8 fl Normal 35.1-43.9 [facility] Comment on above: Order Comment: 109-1 Performed By: #### L 100.0100 ####[facility] [address] [place], [address] WBC (Bld) [#/Vol] 11.7 10*3/uL High 4.4-11.0 [facility] Comment on above: Order Comment: 109-1 Performed By: #### L 100.0100 ####[facility] [address] [place], [address] Eosinophil percentageOrdered By: Renard Burgos on 09-09-2024 Eosinophils/100 WBC (Bld) 0.5 % 0-5 [facility] Erythrocyte distribution wid th ratioOrdered By: Renard Burgos on 09-09-2024 Erythrocyte distribution width (RBC) [Ratio] 13.0 % 11.6-14.6 [facility] Erythrocyte distribution wid th standard deviationOrdered By: Renard Burgos on 09-09-2024 Erythrocyte distribution width (RBC) [Ratio] 43.8 fl 35.1-43.9 [facility] Hematocrit Auto (Bld) [Volum e fraction]Ordered By: Renard Burgos on 09-09-2024 Hematocrit (Bld) [Volume fraction] 44.7 % 40-54 [facility] Hemoglobin measurementOrdere d By: Renard Burgos on 09-09-2024 Hemoglobin (Bld) [Mass/Vol] 14.6 g/dL 13.0-16.5 [facility] Immature granulocytes/100 WB C Auto (Bld)Ordered By: Renard Burgos on 09-09-2024 Immature granulocytes/100 WBC (Bld) 0.300 % 0.0-0.9 [facility] Comment on above: IG% - Immature Granu locytes (promyelocytes, myelocytes and metamyelocytes) > 1% indicates that a LEFT SHIFT is Present. MCV (mean corpuscular volume ) determinationOrdered By: Renard Burgos on 09-09-2024 MCV (RBC) [Entitic vol] 92.2 fL 80-94 [facility] Mean corpuscular hemoglobin (MCH) determinationOrdered By: Renard Burgos on 09-09-2024 MCH (RBC) [Entitic mass] 30.1 pg 27.0-32.0 [facility] Mean corpuscular hemoglobin concentration (MCHC) determinationOrdered By: Renard Burgos on 09-09-2024 MCHC (RBC) [Mass/Vol] 32.7 g/dL 32-36 [facility] Mean platelet volume determi nationOrdered By: Renard Burgos on 09-09-2024 Platelet mean volume (Bld) [Entitic vol] 11.6 fL 6.2-12.0 [facility] Monocyte percentageOrdered B y: Renard Burgos on 09-09-2024 Monocytes/100 WBC (Bld) 5.1 % 0-10 [facility] Neutrophil percentageOrdered By: Renard Burgos on 09-09-2024 Neutrophils/100 WBC (Bld) 74.6 % High 47-70 [facility] Nucleated red blood cell per centageOrdered By: Renard Burgos on 09-09-2024 Nucleated RBC/100 WBC (Bld) [Ratio] 0 % 0-5 [facility] Platelet countOrdered By: Garrick Bhatt on 09-09-2024 Platelets (Bld) [#/Vol] 189 10*3/uL 150-450 [facility] RBC Auto (Bld) [#/Vol]Ordere d By: Renard Burgos on 09-09-2024 RBC (Bld) [#/Vol] 4.85 10*6/uL 4.6-6.2 [facility] White blood cell (WBC) count Ordered By: Renard Burgos on 09-09-2024 WBC (Bld) [#/Vol] 11.7 10*3/uL High 4.4-11.0 [facility] Absolute lymphocyte countOrd ered By: Renard Burgos on 09-02-2024 Lymphocytes Auto (Unsp spec) [#/Vol] 2.07 10*3/uL 0.83-4.51 [facility] Absolute neutrophil countOrd ered By: Renard Burgos on 09-02-2024 Neutrophils (Bld) [#/Vol] 5.8 10*3/uL 2.0-7.7 [facility] Automated lymphocyte count a s percentage of total leukocytesOrdered By: Renard Burgos on 09-02-2024 Lymphocytes/100 WBC Auto (Unsp spec) 24.4 % 19-41 [facility] Basophil percentageOrdered B y: Renard Burgos on 09-02-2024 Basophils/100 WBC (Bld) 0.6 % 0-1 [facility] CBC W/Diff, Automatedon 05 Absolute Lymph 2.07 X10 3/uL Normal 0.83-4.51 [facility] Comment on above: Order Comment: 109 Performed By: #### L 100.0100 ####[facility] [address] [place], [address] Absolute Neut 5.8 X10 3/uL Normal 2.0-7.7 [facility] Comment on above: Order Comment: 109 Performed By: #### L 100.0100 ####[facility] [address] [place], [address] Basophils/100 WBC (Bld) 0.6 % Normal 0-1 [facility] Comment on above: Order Comment: 109 Performed By: #### L 100.0100 ####[facility] [address] [place], [address] Eosinophils/100 WBC (Bld) 0.7 % Normal 0-5 [facility] Comment on above: Order Comment: 109 Performed By: #### L 100.0100 ####[facility] [address] [place], [address] Erythrocyte distribution width (RBC) [Ratio] 12.8 % Normal 11.6-14.6 [facility] Comment on above: Order Comment: 109 Performed By: #### L 100.0100 ####[facility] [address] [place], [address] Hematocrit (Bld) [Volume fraction] 44.5 % Normal 40-54 [facility] Comment on above: Order Comment: 109 Performed By: #### L 100.0100 ####[facility] [address] [place], [address] Hemoglobin (Bld) [Mass/Vol] 14.9 g/dL Normal 13.0-16.5 [facility] Comment on above: Order Comment: 109 Performed By: #### L 100.0100 ####[facility] [address] [place], [address] IG% 0.400 Normal 0.0-0.9 [facility] Comment on above: Order Comment: 109 Result Comment: IG% - Immature Granulocytes (promyelocytes, myelocytes andmetamyelocytes) > 1% indicates that a LEFT SHIFT is Present. Performed By: #### L 100.0100 ####[facility] [address] [place], [address] Lymphocytes/100 WBC (Bld) 24.4 % Normal 19-41 [facility] Comment on above: Order Comment: 109 Performed By: #### L 100.0100 ####[facility] [address] [place], [address] MCH (RBC) [Entitic mass] 29.9 pg Normal 27.0-32.0 [facility] Comment on above: Order Comment: 109 Performed By: #### L 100.0100 ####[facility] [address] [place], [address] MCHC (RBC) [Mass/Vol] 33.5 g/dL Normal 32-36 [facility] Comment on above: Order Comment: 109 Performed By: #### L 100.0100 ####[facility] [address] [place], [address] MCV (RBC) [Entitic vol] 89.4 fL Normal 80-94 [facility] Comment on above: Order Comment: 109 Performed By: #### L 100.0100 ####[facility] [address] [place], [address] Monocytes/100 WBC (Bld) 5.4 % Normal 0-10 [facility] Comment on above: Order Comment: 109 Performed By: #### L 100.0100 ####[facility] [address] [place], [address] Neutrophils/100 WBC (Bld) 68.5 % Normal 47-70 [facility] Comment on above: Order Comment: 109 Performed By: #### L 100.0100 ####[facility] [address] [place], [address] Nucleated RBC (Bld) [#/Vol] 0 10*3/uL Normal 0-5 [facility] Comment on above: Order Comment: 109 Performed By: #### L 100.0100 ####[facility] [address] [place], [address] Platelet mean volume (Bld) [Entitic vol] 10.7 fL Normal 6.2-12.0 [facility] Comment on above: Order Comment: 109 Performed By: #### L 100.0100 ####[facility] [address] [place], [address] Platelets (Bld) [#/Vol] 189 10*3/uL Normal 150-450 [facility] Comment on above: Order Comment: 109 Performed By: #### L 100.0100 ####[facility] [address] [place], [address] RBC (Bld) [#/Vol] 4.98 10*6/uL Normal 4.6-6.2 [facility] Comment on above: Order Comment: 109 Performed By: #### L 100.0100 ####[facility] [address] [place], [address] RDW SD 41.7 fl Normal 35.1-43.9 [facility] Comment on above: Order Comment: 109 Performed By: #### L 100.0100 ####[facility] [address] [place], [address] WBC (Bld) [#/Vol] 8.5 10*3/uL Normal 4.4-11.0 [facility] Comment on above: Order Comment: 109 Performed By: #### L 100.0100 ####[facility] [address] [place], [address] Eosinophil percentageOrdered By: Renard Burgos on 09-02-2024 Eosinophils/100 WBC (Bld) 0.7 % 0-5 [facility] Erythrocyte distribution wid th ratioOrdered By: Renard Burgos on 09-02-2024 Erythrocyte distribution width (RBC) [Ratio] 12.8 % 11.6-14.6 [facility] Erythrocyte distribution wid th standard deviationOrdered By: Renard Burgos on 09-02-2024 Erythrocyte distribution width (RBC) [Ratio] 41.7 fl 35.1-43.9 [facility] Hematocrit Auto (Bld) [Volum e fraction]Ordered By: Renard Burgos on 09-02-2024 Hematocrit (Bld) [Volume fraction] 44.5 % 40-54 [facility] Hemoglobin measurementOrdere d By: Renard Burgos on 09-02-2024 Hemoglobin (Bld) [Mass/Vol] 14.9 g/dL 13.0-16.5 [facility] Immature granulocytes/100 WB C Auto (Bld)Ordered By: Renard Burgos on 09-02-2024 Immature granulocytes/100 WBC (Bld) 0.400 % 0.0-0.9 [facility] Comment on above: IG% - Immature Granu locytes (promyelocytes, myelocytes and metamyelocytes) > 1% indicates that a LEFT SHIFT is Present. MCV (mean corpuscular volume ) determinationOrdered By: Renard Burgos on 09-02-2024 MCV (RBC) [Entitic vol] 89.4 fL 80-94 [facility] Mean corpuscular hemoglobin (MCH) determinationOrdered By: Renard Burgos on 09-02-2024 MCH (RBC) [Entitic mass] 29.9 pg 27.0-32.0 [facility] Mean corpuscular hemoglobin concentration (MCHC) determinationOrdered By: Renard Burgos on 09-02-2024 MCHC (RBC) [Mass/Vol] 33.5 g/dL 32-36 [facility] Mean platelet volume determi nationOrdered By: Renard Burgos on 09-02-2024 Platelet mean volume (Bld) [Entitic vol] 10.7 fL 6.2-12.0 [facility] Monocyte percentageOrdered B y: Renard Burgos on 09-02-2024 Monocytes/100 WBC (Bld) 5.4 % 0-10 [facility] Neutrophil percentageOrdered By: Renard Burgos on 09-02-2024 Neutrophils/100 WBC (Bld) 68.5 % 47-70 [facility] Nucleated red blood cell per centageOrdered By: Renard Burgos on 09-02-2024 Nucleated RBC/100 WBC (Bld) [Ratio] 0 % 0-5 [facility] Platelet countOrdered By: Garrick Bhatt on 09-02-2024 Platelets (Bld) [#/Vol] 189 10*3/uL 150-450 [facility] RBC Auto (Bld) [#/Vol]Ordere d By: Renard Burgos on 09-02-2024 RBC (Bld) [#/Vol] 4.98 10*6/uL 4.6-6.2 [facility] White blood cell (WBC) count Ordered By: Renard Burgos on 09-02-2024 WBC (Bld) [#/Vol] 8.5 10*3/uL 4.4-11.0 [facility] Absolute lymphocyte countOrd ered By: Renard Burgos on 08-26-2024 Lymphocytes Auto (Unsp spec) [#/Vol] 2.17 10*3/uL 0.83-4.51 [facility] Absolute neutrophil countOrd ered By: Renard Burgos on 08-26-2024 Neutrophils (Bld) [#/Vol] 5.7 10*3/uL 2.0-7.7 [facility] Automated lymphocyte count a s percentage of total leukocytesOrdered By: Renard Burgos on 08-26-2024 Lymphocytes/100 WBC Auto (Unsp spec) 25.1 % 19-41 [facility] Basophil percentageOrdered B y: Renard Burgos on 08-26-2024 Basophils/100 WBC (Bld) 0.6 % 0-1 [facility] CBC W/Diff, Automatedon 07-31 Absolute Lymph 2.17 X10 3/uL Normal 0.83-4.51 [facility] Comment on above: Order Comment: 109-1 Performed By: #### L 100.0100 ####[facility] [address] [place], [address] Absolute Neut 5.7 X10 3/uL Normal 2.0-7.7 [facility] Comment on above: Order Comment: 109-1 Performed By: #### L 100.0100 ####[facility] [address] [place], [address] Basophils/100 WBC (Bld) 0.6 % Normal 0-1 [facility] Comment on above: Order Comment: 109-1 Performed By: #### L 100.0100 ####[facility] [address] [place], [address] Eosinophils/100 WBC (Bld) 0.8 % Normal 0-5 [facility] Comment on above: Order Comment: 109-1 Performed By: #### L 100.0100 ####[facility] [address] [place], [address] Erythrocyte distribution width (RBC) [Ratio] 12.7 % Normal 11.6-14.6 [facility] Comment on above: Order Comment: 109-1 Performed By: #### L 100.0100 ####[facility] [address] [place], [address] Hematocrit (Bld) [Volume fraction] 41.8 % Normal 40-54 [facility] Comment on above: Order Comment: 109-1 Performed By: #### L 100.0100 ####[facility] [address] [place], [address] Hemoglobin (Bld) [Mass/Vol] 13.8 g/dL Normal 13.0-16.5 [facility] Comment on above: Order Comment: 109-1 Performed By: #### L 100.0100 ####[facility] [address] [place], [address] IG% 0.200 Normal 0.0-0.9 [facility] Comment on above: Order Comment: 109-1 Result Comment: IG% - Immature Granulocytes (promyelocytes, myelocytes andmetamyelocytes) > 1% indicates that a LEFT SHIFT is Present. Performed By: #### L 100.0100 ####[facility] [address] [place], [address] Lymphocytes/100 WBC (Bld) 25.1 % Normal 19-41 [facility] Comment on above: Order Comment: 109-1 Performed By: #### L 100.0100 ####[facility] [address] [place], [address] MCH (RBC) [Entitic mass] 29.7 pg Normal 27.0-32.0 [facility] Comment on above: Order Comment: 109-1 Performed By: #### L 100.0100 ####[facility] [address] [place], [address] MCHC (RBC) [Mass/Vol] 33.0 g/dL Normal 32-36 [facility] Comment on above: Order Comment: 109-1 Performed By: #### L 100.0100 ####[facility] [address] [place], [address] MCV (RBC) [Entitic vol] 90.1 fL Normal 80-94 [facility] Comment on above: Order Comment: 109-1 Performed By: #### L 100.0100 ####[facility] [address] [place], [address] Monocytes/100 WBC (Bld) 7.4 % Normal 0-10 [facility] Comment on above: Order Comment: 109-1 Performed By: #### L 100.0100 ####[facility] [address] [place], [address] Neutrophils/100 WBC (Bld) 65.9 % Normal 47-70 [facility] Comment on above: Order Comment: 109-1 Performed By: #### L 100.0100 ####[facility] [address] [place], [address] Nucleated RBC (Bld) [#/Vol] 0 10*3/uL Normal 0-5 [facility] Comment on above: Order Comment: 109-1 Performed By: #### L 100.0100 ####[facility] [address] [place], [address] Platelet mean volume (Bld) [Entitic vol] 11.3 fL Normal 6.2-12.0 [facility] Comment on above: Order Comment: 109-1 Performed By: #### L 100.0100 ####[facility] [address] [place], [address] Platelets (Bld) [#/Vol] 196 10*3/uL Normal 150-450 [facility] Comment on above: Order Comment: 109-1 Performed By: #### L 100.0100 ####[facility] [address] [place], [address] RBC (Bld) [#/Vol] 4.64 10*6/uL Normal 4.6-6.2 [facility] Comment on above: Order Comment: 109-1 Performed By: #### L 100.0100 ####[facility] [address] [place], [address] RDW SD 41.3 fl Normal 35.1-43.9 [facility] Comment on above: Order Comment: 109-1 Performed By: #### L 100.0100 ####[facility] [address] [place], [address] WBC (Bld) [#/Vol] 8.6 10*3/uL Normal 4.4-11.0 [facility] Comment on above: Order Comment: 109-1 Performed By: #### L 100.0100 ####[facility] [address] [place], [address] Eosinophil percentageOrdered By: Renard Burgos on 08-26-2024 Eosinophils/100 WBC (Bld) 0.8 % 0-5 [facility] Erythrocyte distribution wid th ratioOrdered By: Renard Burgos on 08-26-2024 Erythrocyte distribution width (RBC) [Ratio] 12.7 % 11.6-14.6 [facility] Erythrocyte distribution wid th standard deviationOrdered By: Renard Burgos on 08-26-2024 Erythrocyte distribution width (RBC) [Ratio] 41.3 fl 35.1-43.9 [facility] Hematocrit Auto (Bld) [Volum e fraction]Ordered By: Renard Burgos on 08-26-2024 Hematocrit (Bld) [Volume fraction] 41.8 % 40-54 [facility] Hemoglobin measurementOrdere d By: Renard Burgos on 08-26-2024 Hemoglobin (Bld) [Mass/Vol] 13.8 g/dL 13.0-16.5 [facility] Immature granulocytes/100 WB C Auto (Bld)Ordered By: Renard Burgos on 08-26-2024 Immature granulocytes/100 WBC (Bld) 0.200 % 0.0-0.9 [facility] Comment on above: IG% - Immature Granu locytes (promyelocytes, myelocytes and metamyelocytes) > 1% indicates that a LEFT SHIFT is Present. MCV (mean corpuscular volume ) determinationOrdered By: Renard Burgos on 08-26-2024 MCV (RBC) [Entitic vol] 90.1 fL 80-94 [facility] Mean corpuscular hemoglobin (MCH) determinationOrdered By: Renard Burgos on 08-26-2024 MCH (RBC) [Entitic mass] 29.7 pg 27.0-32.0 [facility] Mean corpuscular hemoglobin concentration (MCHC) determinationOrdered By: Renard Burgos on 08-26-2024 MCHC (RBC) [Mass/Vol] 33.0 g/dL 32-36 [facility] Mean platelet volume determi nationOrdered By: Renard Burgos on 08-26-2024 Platelet mean volume (Bld) [Entitic vol] 11.3 fL 6.2-12.0 [facility] Monocyte percentageOrdered B y: Renard Burgos on 08-26-2024 Monocytes/100 WBC (Bld) 7.4 % 0-10 [facility] Neutrophil percentageOrdered By: Renard Burgos on 08-26-2024 Neutrophils/100 WBC (Bld) 65.9 % 47-70 [facility] Nucleated red blood cell per centageOrdered By: Renard Burgos on 08-26-2024 Nucleated RBC/100 WBC (Bld) [Ratio] 0 % 0-5 [facility] Platelet countOrdered By: Garrick Bhatt on 08-26-2024 Platelets (Bld) [#/Vol] 196 10*3/uL 150-450 [facility] RBC Auto (Bld) [#/Vol]Ordere d By: Renard Burgos on 08-26-2024 RBC (Bld) [#/Vol] 4.64 10*6/uL 4.6-6.2 [facility] White blood cell (WBC) count Ordered By: Renard Burgos on 08-26-2024 WBC (Bld) [#/Vol] 8.6 10*3/uL 4.4-11.0 [facility] Anion gap in Serum or Plasma Ordered By: Renard Burgos on 08-23-2024 Anion gap [Moles/Vol] 10 mmol/L 5-15 [facility] BUN/creatinine ratioOrdered By: Renard Burgos on 08-23-2024 Urea nitrogen/Creatinine [Mass ratio] 21.4 mg/mg High 10-20 [facility] Bilirubin, totalOrdered By: Renard Burgos on 08-23-2024 Bilirubin [Mass/Vol] 0.35 mg/dL 0.00-1.30 [facility] CBC-Complete Blood Cnt No Di ffon 08-23-2024 Erythrocyte distribution width (RBC) [Ratio] 12.7 % Normal 11.6-14.6 [facility] Comment on above: Order Comment: 109.1 Performed By: #### L 500.4100, L100.0500, L500.4050 ####[facility] [address] [place], [address] Hematocrit (Bld) [Volume fraction] 42.2 % Normal 40-54 [facility] Comment on above: Order Comment: 109.1 Performed By: #### L 500.4100, L100.0500, L500.4050 ####[facility] [address] [place], [address] Hemoglobin (Bld) [Mass/Vol] 14.0 g/dL Normal 13.0-16.5 [facility] Comment on above: Order Comment: 109.1 Performed By: #### L 500.4100, L100.0500, L500.4050 ####[facility] [address] [place], [address] MCH (RBC) [Entitic mass] 30.0 pg Normal 27.0-32.0 [facility] Comment on above: Order Comment: 109.1 Performed By: #### L 500.4100, L100.0500, L500.4050 ####[facility] [address] [place], [address] MCHC (RBC) [Mass/Vol] 33.2 g/dL Normal 32-36 [facility] Comment on above: Order Comment: 109.1 Performed By: #### L 500.4100, L100.0500, L500.4050 ####[facility] [address] [place], [address] MCV (RBC) [Entitic vol] 90.6 fL Normal 80-94 [facility] Comment on above: Order Comment: 109.1 Performed By: #### L 500.4100, L100.0500, L500.4050 ####[facility] [address] [place], [address] Platelet mean volume (Bld) [Entitic vol] 11.3 fL Normal 6.2-12.0 [facility] Comment on above: Order Comment: 109.1 Performed By: #### L 500.4100, L100.0500, L500.4050 ####[facility] [address] [place], [address] Platelets (Bld) [#/Vol] 184 10*3/uL Normal 150-450 [facility] Comment on above: Order Comment: 109.1 Performed By: #### L 500.4100, L100.0500, L500.4050 ####[facility] [address] [place], [address] RBC (Bld) [#/Vol] 4.66 10*6/uL Normal 4.6-6.2 [facility] Comment on above: Order Comment: 109.1 Performed By: #### L 500.4100, L100.0500, L500.4050 ####[facility] [address] [place], [address] RDW SD 41.8 fl Normal 35.1-43.9 [facility] Comment on above: Order Comment: 109.1 Performed By: #### L 500.4100, L100.0500, L500.4050 ####[facility] [address] [place], [address] WBC (Bld) [#/Vol] 8.6 10*3/uL Normal 4.4-11.0 [facility] Comment on above: Order Comment: 109.1 Performed By: #### L 500.4100, L100.0500, L500.4050 ####[facility] [address] [place], [address] Calculated very low density lipoprotein (VLDL) cholesterol measurementOrdered By: Renard Burgos on 08-23-2024 Calculated very low density lipoprotein (VLDL) cholesterol measurement 40 mg/dL 5-40 [facility] Carbon dioxide, total [Moles /volume] in Central venous bloodOrdered By: Renard Burgos on 08-23-2024 CO2 [Moles/Vol] 24.9 mmol/L 21.0-32.0 [facility] Chloride assayOrdered By: Garrick Bhatt on 08-23-2024 Chloride [Moles/Vol] 106 mmol/L 98-108 [facility] Comprehensive Metabolic Prof ilon 08-23-2024 Albumin [Mass/Vol] 3.4 g/dL Normal 3.4-4.8 [facility] Comment on above: Order Comment: 109.1 Performed By: #### L 500.4100, L100.0500, L500.4050 ####[facility] [address] [place], [address] Albumin/Globulin [Mass ratio] 1.4 {ratio} Normal 0.9-2.4 [facility] Comment on above: Order Comment: 109.1 Performed By: #### L 500.4100, L100.0500, L500.4050 ####[facility] [address] [place], [address] ALK PHOS 101 U/L Normal 40-129 [facility] Comment on above: Order Comment: 109.1 Performed By: #### L 500.4100, L100.0500, L500.4050 ####[facility] [address] [place], [address] ALT [Catalytic activity/Vol] 13 U/L Normal <=46 [facility] Comment on above: Order Comment: 109.1 Performed By: #### L 500.4100, L100.0500, L500.4050 ####[facility] [address] [place], [address] AST [Catalytic activity/Vol] 17 U/L Normal <=37 [facility] Comment on above: Order Comment: 109.1 Performed By: #### L 500.4100, L100.0500, L500.4050 ####[facility] [address] [place], [address] Bilirubin [Mass/Vol] 0.35 mg/dL Normal 0.00-1.30 [facility] Comment on above: Order Comment: 109.1 Performed By: #### L 500.4100, L100.0500, L500.4050 ####[facility] [address] [place], [address] BUN/CRE 21.4 RATIO High 10-20 [facility] Comment on above: Order Comment: 109.1 Performed By: #### L 500.4100, L100.0500, L500.4050 ####[facility] [address] [place], [address] Calcium [Mass/Vol] 8.2 mg/dL Normal 7.6-11.0 [facility] Comment on above: Order Comment: 109.1 Performed By: #### L 500.4100, L100.0500, L500.4050 ####[facility] [address] [place], [address] Chloride [Moles/Vol] 106 mmol/L Normal 98-108 [facility] Comment on above: Order Comment: 109.1 Performed By: #### L 500.4100, L100.0500, L500.4050 ####[facility] [address] [place], [address] CO2 [Moles/Vol] 24.9 mmol/L Normal 21.0-32.0 [facility] Comment on above: Order Comment: 109.1 Performed By: #### L 500.4100, L100.0500, L500.4050 ####[facility] [address] [place], [address] Creatinine [Mass/Vol] 0.63 mg/dL Low 0.70-1.20 [facility] Comment on above: Order Comment: 109.1 Performed By: #### L 500.4100, L100.0500, L500.4050 ####[facility] [address] [place], [address] GAP 10 Normal 5-15 [facility] Comment on above: Order Comment: 109.1 Performed By: #### L 500.4100, L100.0500, L500.4050 ####[facility] [address] [place], [address] GFR/1.73 sq M.predicted among non-blacks MDRD (S/P/Bld) [Vol rate/Area] 104 mL/min/{1.73_m2} Normal >60 [facility] Comment on above: Order Comment: 109.1 Result Comment: mL/m in/1.73m2 CKD-EPI Creatinine Equation (2020) Performed By: #### L 500.4100, L100.0500, L500.4050 ####[facility] [address] [place], [address] Globulin (S) [Mass/Vol] 2.3 g/dL Normal 2.2-4.2 [facility] Comment on above: Order Comment: 109.1 Performed By: #### L 500.4100, L100.0500, L500.4050 ####[facility] [address] [place], [address] Glucose [Mass/Vol] 116 mg/dL High 70-99 [facility] Comment on above: Order Comment: 109.1 Performed By: #### L 500.4100, L100.0500, L500.4050 ####[facility] [address] [place], [address] Potassium [Moles/Vol] 3.8 mmol/L Normal 3.3-5.1 [facility] Comment on above: Order Comment: 109.1 Performed By: #### L 500.4100, L100.0500, L500.4050 ####[facility] [address] [place], [address] Sodium [Moles/Vol] 141 mmol/L Normal 133-145 [facility] Comment on above: Order Comment: 109.1 Performed By: #### L 500.4100, L100.0500, L500.4050 ####[facility] [address] [place], [address] T PROT 5.7 g/dL Low 5.9-8.4 [facility] Comment on above: Order Comment: 109.1 Performed By: #### L 500.4100, L100.0500, L500.4050 ####[facility] [address] [place], [address] Urea nitrogen [Mass/Vol] 14 mg/dL Normal 4-19 [facility] Comment on above: Order Comment: 109.1 Performed By: #### L 500.4100, L100.0500, L500.4050 ####[facility] [address] [place], [address] Erythrocyte distribution wid th ratioOrdered By: Renard Burgos on 08-23-2024 Erythrocyte distribution width (RBC) [Ratio] 12.7 % 11.6-14.6 [facility] Erythrocyte distribution wid th standard deviationOrdered By: Renard Burgos on 08-23-2024 Erythrocyte distribution width (RBC) [Ratio] 41.8 fl 35.1-43.9 [facility] Glomerular filtration rate ( GFR) estimation/1.73 sq m using serum, plasma, or whole bOrdered By: Renard Burgos on 08-23-2024 GFR/1.73 sq M.predicted among non-blacks MDRD (S/P/Bld) [Vol rate/Area] 104 mL/min/{1.73_m2} >60 [facility] Comment on above: mL/min/1.73m2 CKD-EP I Creatinine Equation (2020) Hematocrit Auto (Bld) [Volum e fraction]Ordered By: Renard Burgos on 08-23-2024 Hematocrit (Bld) [Volume fraction] 42.2 % 40-54 [facility] Hemoglobin measurementOrdere d By: Renard Burgos on 08-23-2024 Hemoglobin (Bld) [Mass/Vol] 14.0 g/dL 13.0-16.5 [facility] LDL calc ser/plasOrdered By: Renard Burgos on 08-23-2024 Cholesterol in LDL [Mass/Vol] 62 mg/dL [facility] Comment on above: Wizxyumezd=768-785 m g/dL & Higher Uzyk=507 mg/dL or greater Laboratory - Chemistry and C hemistry - challengeOrdered By: Renard Burgos on 08-23-2024 AST [Catalytic activity/Vol] 17 U/L <38 [facility] Lipid Profileon 08-23-2024 CHOL:HDL 5.32 Normal [facility] Comment on above: Order Comment: 109.1 Performed By: #### L 500.4100, L100.0500, L500.4050 ####[facility] [address] [place], [address] Cholesterol [Mass/Vol] 125 mg/dL Normal <=200 [facility] Comment on above: Order Comment: 109.1 Result Comment: Chol esterol level, Desirable <200 mg/dLBorderline high cholesterol 200-239 mg/dLHigh cholesterol >=240 mg/dLRecommendations of the NCEP Adult Treatment Panel for thefollowing risk-cutoff thresholds for the [place] Americanpulation. Performed By: #### L 500.4100, L100.0500, L500.4050 ####[facility] [address] [place], [address] Cholesterol in HDL [Mass/Vol] 24 mg/dL Low [facility] Comment on above: Order Comment: 109.1 Result Comment: Lucy onal Cholesterol Education Program (NCEP) guidelines:<40 mg/dL: Low HDL-cholesterol (major risk factor for CHD)>= 60 mg/dL: High HDL-cholesterol (negative risk factor forCHD)HDL-cholesterol is affected by a number of factors, e.g.smoking, exercise, hormones, sex and age. Performed By: #### L 500.4100, L100.0500, L500.4050 ####[facility] [address] [place], [address] Cholesterol in LDL [Mass/Vol] 62 mg/dL Normal [facility] Comment on above: Order Comment: 109.1 Result Comment: Bord kultwn=246-128 mg/dL Higher Bvkg=726 mg/dL or greater Performed By: #### L 500.4100, L100.0500, L500.4050 ####[facility] [address] [place], [address] Cholesterol in VLDL [Mass/Vol] 40 mg/dL Normal 5-40 [facility] Comment on above: Order Comment: 109.1 Performed By: #### L 500.4100, L100.0500, L500.4050 ####[facility] [address] [place], [address] Triglyceride [Mass/Vol] 198 mg/dL Normal [facility] Comment on above: Order Comment: 109.1 Result Comment: The drugs N-Acetylcysteine and Metamizole may falselydepress this assay.Normal range: <150 mg/dLBorderline High: 150-199 mg/dLHigh: 200-499 mg/dLVery High: >500 mg/dL Performed By: #### L 500.4100, L100.0500, L500.4050 ####[facility] [address] [place], [address] MCV (mean corpuscular volume ) determinationOrdered By: Renard Burgos on 08-23-2024 MCV (RBC) [Entitic vol] 90.6 fL 80-94 [facility] Mean corpuscular hemoglobin (MCH) determinationOrdered By: Renard Burgos on 08-23-2024 MCH (RBC) [Entitic mass] 30.0 pg 27.0-32.0 [facility] Mean corpuscular hemoglobin concentration (MCHC) determinationOrdered By: Renard Burgos on 08-23-2024 MCHC (RBC) [Mass/Vol] 33.2 g/dL 32-36 [facility] Mean platelet volume determi nationOrdered By: Renard Burgos on 08-23-2024 Platelet mean volume (Bld) [Entitic vol] 11.3 fL 6.2-12.0 [facility] Platelet countOrdered By: Garrick Bhatt on 08-23-2024 Platelets (Bld) [#/Vol] 184 10*3/uL 150-450 [facility] Potassium measurement (mass/ volume)Ordered By: Renard Burgos on 08-23-2024 Potassium (Unsp spec) [Mass/Vol] 3.8 mmol/L 3.3-5.1 [facility] RBC Auto (Bld) [#/Vol]Ordere d By: Renard Burgos on 08-23-2024 RBC (Bld) [#/Vol] 4.66 10*6/uL 4.6-6.2 [facility] Screening total cholesterol/ high density lipoprotein (HDL) cholesterol ratioOrdered By: Renard Burgos on 08-23-2024 Cholesterol.total/Cecilia sterol in HDL [Mass ratio] 5.32 {ratio} [facility] Serum creatinine measurement (mass/volume)Ordered By: Renard Burgos on 08-23-2024 Creatinine [Mass/Vol] 0.63 mg/dL Low 0.70-1.20 [facility] Serum globulin measurementOr dered By: Renard Burgos on 08-23-2024 Globulin (S) [Mass/Vol] 2.3 g/dL 2.2-4.2 [facility] Serum glucose measurement (m ass/volume)Ordered By: Renard Burgos on 08-23-2024 Glucose [Mass/Vol] 116 mg/dL High 70-99 [facility] Serum or plasma alanine kay otransferase (ALT) measurementOrdered By: Renard Burgos on 08-23-2024 ALT [Catalytic activity/Vol] 13 U/L <47 [facility] Serum or plasma albumin ogrdy urement (mass/volume)Ordered By: Renard Burgos on 08-23-2024 Albumin [Mass/Vol] 3.4 g/dL 3.4-4.8 [facility] Serum or plasma albumin/glob ulin mass ratioOrdered By: Renard Burgos on 08-23-2024 Albumin/Globulin [Mass ratio] 1.4 {ratio} 0.9-2.4 [facility] Serum or plasma alkaline trace sphatase measurementOrdered By: Renard Burgos on 08-23-2024 ALP [Catalytic activity/Vol] 101 U/L 40-129 [facility] Serum or plasma calcium gordy urement (mass/volume)Ordered By: Renard Burgos on 08-23-2024 Calcium [Mass/Vol] 8.2 mg/dL 7.6-11.0 [facility] Serum or plasma cholesterol in HDL measurement (mass/volume)Ordered By: Renard Burgos on 08-23-2024 Cholesterol in HDL [Mass/Vol] 24 mg/dL Low >40 [facility] Comment on above: National Cholesterol Education Program (NCEP) guidelines:<40 mg/dL: Low HDL-cholesterol (major risk factor for CHD)>= 60 mg/dL: High HDL-cholesterol (negative risk factor for CHD)HDL-cholesterol is affected by a number of factors, e.g. smoking, exercise, hormones, sex and age. Serum or plasma cholesterol measurement (mass/volume)Ordered By: Renard Burgos on 08-23-2024 Cholesterol [Mass/Vol] 125 mg/dL <[address] [facility] Comment on above: Cholesterol level, D esirable <200 mg/dLBorderline high cholesterol 200-239 mg/dLHigh cholesterol >=240 mg/dLRecommendations of the NCEP Adult Treatment Panel for the following risk-cutoff thresholds for the [place] population. Serum or plasma urea nitroge n measurement (mass/volume)Ordered By: Renard Burgos on 08-23-2024 Urea nitrogen [Mass/Vol] 14 mg/dL 4-19 [facility] Sodium levelOrdered By: Lamine Burgos on 08-23-2024 Sodium [Moles/Vol] 141 mmol/L 133-145 [facility] Total proteinOrdered By: Lyubov Burgos on 08-23-2024 Protein [Mass/Vol] 5.7 g/dL Low 5.9-8.4 [facility] Triglycerides measurementOrd ered By: Renard Burgos on 08-23-2024 Triglyceride [Mass/Vol] 198 mg/dL <199 [facility] Comment on above: The drugs N-Acetylcy steine and Metamizole may falsely depress this assay. Normal range: <150 mg/dLBorderline High: 150-199 mg/dLHigh: 200-499 mg/dLVery High: >500 mg/dL White blood cell (WBC) count Ordered By: Renard Burgos on 08-23-2024 WBC (Bld) [#/Vol] 8.6 10*3/uL 4.4-11.0 [facility] Absolute lymphocyte countOrd ered By: Renard Burgos on 08-19-2024 Lymphocytes Auto (Unsp spec) [#/Vol] 1.97 10*3/uL 0.83-4.51 [facility] Absolute neutrophil countOrd ered By: Renard Burgos on 08-19-2024 Neutrophils (Bld) [#/Vol] 5.0 10*3/uL 2.0-7.7 [facility] Automated lymphocyte count a s percentage of total leukocytesOrdered By: Renard Burgos on 08-19-2024 Lymphocytes/100 WBC Auto (Unsp spec) 25.4 % 19-41 [facility] Basophil percentageOrdered B y: Renard Burgos on 08-19-2024 Basophils/100 WBC (Bld) 0.5 % 0-1 [facility] CBC W/Diff, Automatedon 07-31 Absolute Lymph 1.97 X10 3/uL Normal 0.83-4.51 [facility] Comment on above: Order Comment: 109 Performed By: #### L 100.0100 ####[facility] [id number] [place], [address] Absolute Neut 5.0 X10 3/uL Normal 2.0-7.7 [facility] Comment on above: Order Comment: 109 Performed By: #### L 100.0100 ####[facility] [id number] [place], [address] Basophils/100 WBC (Bld) 0.5 % Normal 0-1 [facility] Comment on above: Order Comment: 109 Performed By: #### L 100.0100 ####[facility] [id number] [place], [place], [address] Eosinophils/100 WBC (Bld) 1.0 % Normal 0-5 [facility] Comment on above: Order Comment: 109 Performed By: #### L 100.0100 ####[facility] [address] [place], [address] Erythrocyte distribution width (RBC) [Ratio] 12.7 % Normal 11.6-14.6 [facility] Comment on above: Order Comment: 109 Performed By: #### L 100.0100 ####[facility] [address] [place], [address] Hematocrit (Bld) [Volume fraction] 41.0 % Normal 40-54 [facility] Comment on above: Order Comment: 109 Performed By: #### L 100.0100 ####[facility] [address] [place], [address] Hemoglobin (Bld) [Mass/Vol] 13.6 g/dL Normal 13.0-16.5 [facility] Comment on above: Order Comment: 109 Performed By: #### L 100.0100 ####[facility] [address] [place], [address] IG% 0.400 Normal 0.0-0.9 [facility] Comment on above: Order Comment: 109 Result Comment: IG% - Immature Granulocytes (promyelocytes, myelocytes andmetamyelocytes) > 1% indicates that a LEFT SHIFT is Present. Performed By: #### L 100.0100 ####[facility] [address] [place], [address] Lymphocytes/100 WBC (Bld) 25.4 % Normal 19-41 [facility] Comment on above: Order Comment: 109 Performed By: #### L 100.0100 ####[facility] [address] [place], [address] MCH (RBC) [Entitic mass] 30.2 pg Normal 27.0-32.0 [facility] Comment on above: Order Comment: 109 Performed By: #### L 100.0100 ####[facility] [address] [place], [address] MCHC (RBC) [Mass/Vol] 33.2 g/dL Normal 32-36 [facility] Comment on above: Order Comment: 109 Performed By: #### L 100.0100 ####[facility] [address] [place], [address] MCV (RBC) [Entitic vol] 91.1 fL Normal 80-94 [facility] Comment on above: Order Comment: 109 Performed By: #### L 100.0100 ####[facility] [address] [place], [address] Monocytes/100 WBC (Bld) 8.2 % Normal 0-10 [facility] Comment on above: Order Comment: 109 Performed By: #### L 100.0100 ####[facility] [address] [place], [address] Neutrophils/100 WBC (Bld) 64.5 % Normal 47-70 [facility] Comment on above: Order Comment: 109 Performed By: #### L 100.0100 ####[facility] [address] [place], [address] Nucleated RBC (Bld) [#/Vol] 0 10*3/uL Normal 0-5 [facility] Comment on above: Order Comment: 109 Performed By: #### L 100.0100 ####[facility] [address] [place], [address] Platelet mean volume (Bld) [Entitic vol] 11.1 fL Normal 6.2-12.0 [facility] Comment on above: Order Comment: 109 Performed By: #### L 100.0100 ####[facility] [address] [place], [address] Platelets (Bld) [#/Vol] 207 10*3/uL Normal 150-450 [facility] Comment on above: Order Comment: 109 Performed By: #### L 100.0100 ####[facility] [address] [place], [address] RBC (Bld) [#/Vol] 4.50 10*6/uL Low 4.6-6.2 [facility] Comment on above: Order Comment: 109 Performed By: #### L 100.0100 ####[facility] [address] [place], [address] RDW SD 42.0 fl Normal 35.1-43.9 [facility] Comment on above: Order Comment: 109 Performed By: #### L 100.0100 ####[facility] [address] [place], [address] WBC (Bld) [#/Vol] 7.8 10*3/uL Normal 4.4-11.0 [facility] Comment on above: Order Comment: 109 Performed By: #### L 100.0100 ####[facility] [address] [place], [address] Eosinophil percentageOrdered By: Renard Burgos on 08-19-2024 Eosinophils/100 WBC (Bld) 1.0 % 0-5 [facility] Erythrocyte distribution wid th ratioOrdered By: Renard Burgos on 08-19-2024 Erythrocyte distribution width (RBC) [Ratio] 12.7 % 11.6-14.6 [facility] Erythrocyte distribution wid th standard deviationOrdered By: Renard Burgos on 08-19-2024 Erythrocyte distribution width (RBC) [Ratio] 42.0 fl 35.1-43.9 [facility] Hematocrit Auto (Bld) [Volum e fraction]Ordered By: Renard Burgos on 08-19-2024 Hematocrit (Bld) [Volume fraction] 41.0 % 40-54 [facility] Hemoglobin measurementOrdere d By: Renard Burgos on 08-19-2024 Hemoglobin (Bld) [Mass/Vol] 13.6 g/dL 13.0-16.5 [facility] Immature granulocytes/100 WB C Auto (Bld)Ordered By: Renard Burgos on 08-19-2024 Immature granulocytes/100 WBC (Bld) 0.400 % 0.0-0.9 [facility] Comment on above: IG% - Immature Granu locytes (promyelocytes, myelocytes and metamyelocytes) > 1% indicates that a LEFT SHIFT is Present. MCV (mean corpuscular volume ) determinationOrdered By: Renard Burgos on 08-19-2024 MCV (RBC) [Entitic vol] 91.1 fL 80-94 [facility] Mean corpuscular hemoglobin (MCH) determinationOrdered By: Renard Burgos on 08-19-2024 MCH (RBC) [Entitic mass] 30.2 pg 27.0-32.0 [facility] Mean corpuscular hemoglobin concentration (MCHC) determinationOrdered By: Renard Burgos on 08-19-2024 MCHC (RBC) [Mass/Vol] 33.2 g/dL 32-36 [facility] Mean platelet volume determi nationOrdered By: Renard Burgos on 08-19-2024 Platelet mean volume (Bld) [Entitic vol] 11.1 fL 6.2-12.0 [facility] Monocyte percentageOrdered B y: Renard Burgos on 08-19-2024 Monocytes/100 WBC (Bld) 8.2 % 0-10 [facility] Neutrophil percentageOrdered By: Renard Burgos on 08-19-2024 Neutrophils/100 WBC (Bld) 64.5 % 47-70 [facility] Nucleated red blood cell per centageOrdered By: Renard Burgos on 08-19-2024 Nucleated RBC/100 WBC (Bld) [Ratio] 0 % 0-5 [facility] Platelet countOrdered By: Garrick Bhatt on 08-19-2024 Platelets (Bld) [#/Vol] 207 10*3/uL 150-450 [facility] RBC Auto (Bld) [#/Vol]Ordere d By: Renard Burgos on 08-19-2024 RBC (Bld) [#/Vol] 4.50 10*6/uL Low 4.6-6.2 [facility] White blood cell (WBC) count Ordered By: Renard Burgos on 08-19-2024 WBC (Bld) [#/Vol] 7.8 10*3/uL 4.4-11.0 [facility] Absolute lymphocyte countOrd ered By: Renard Burgos on 08-12-2024 Lymphocytes Auto (Unsp spec) [#/Vol] 2.09 10*3/uL 0.83-4.51 [facility] Absolute neutrophil countOrd ered By: Renard Burgos on 08-12-2024 Neutrophils (Bld) [#/Vol] 5.0 10*3/uL 2.0-7.7 [facility] Automated lymphocyte count a s percentage of total leukocytesOrdered By: Renard Burgos on 08-12-2024 Lymphocytes/100 WBC Auto (Unsp spec) 27.0 % 19-41 [facility] Basophil percentageOrdered B y: Renard Burgos on 08-12-2024 Basophils/100 WBC (Bld) 0.5 % 0-1 [facility] CBC W/Diff, Automatedon 07-30 Absolute Lymph 2.09 X10 3/uL Normal 0.83-4.51 [facility] Comment on above: Order Comment: 109.1 Performed By: #### L 100.0100 ####[facility] [address] [place], [address] Absolute Neut 5.0 X10 3/uL Normal 2.0-7.7 [facility] Comment on above: Order Comment: 109.1 Performed By: #### L 100.0100 ####[facility] [address] [place], [address] Basophils/100 WBC (Bld) 0.5 % Normal 0-1 [facility] Comment on above: Order Comment: 109.1 Performed By: #### L 100.0100 ####[facility] [address] [place], [address] Eosinophils/100 WBC (Bld) 0.9 % Normal 0-5 [facility] Comment on above: Order Comment: 109.1 Performed By: #### L 100.0100 ####[facility] [address] [place], [address] Erythrocyte distribution width (RBC) [Ratio] 12.7 % Normal 11.6-14.6 [facility] Comment on above: Order Comment: 109.1 Performed By: #### L 100.0100 ####[facility] [address] [place], [address] Hematocrit (Bld) [Volume fraction] 41.9 % Normal 40-54 [facility] Comment on above: Order Comment: 109.1 Performed By: #### L 100.0100 ####[facility] [address] [place], [address] Hemoglobin (Bld) [Mass/Vol] 14.1 g/dL Normal 13.0-16.5 [facility] Comment on above: Order Comment: 109.1 Performed By: #### L 100.0100 ####[facility] [address] [place], [address] IG% 0.300 Normal 0.0-0.9 [facility] Comment on above: Order Comment: 109.1 Result Comment: IG% - Immature Granulocytes (promyelocytes, myelocytes andmetamyelocytes) > 1% indicates that a LEFT SHIFT is Present. Performed By: #### L 100.0100 ####[facility] [address] [place], [address] Lymphocytes/100 WBC (Bld) 27.0 % Normal 19-41 [facility] Comment on above: Order Comment: 109.1 Performed By: #### L 100.0100 ####[facility] [address] [place], [address] MCH (RBC) [Entitic mass] 30.3 pg Normal 27.0-32.0 [facility] Comment on above: Order Comment: 109.1 Performed By: #### L 100.0100 ####[facility] [address] [place], [address] MCHC (RBC) [Mass/Vol] 33.7 g/dL Normal 32-36 [facility] Comment on above: Order Comment: 109.1 Performed By: #### L 100.0100 ####[facility] [address] [place], [address] MCV (RBC) [Entitic vol] 90.1 fL Normal 80-94 [facility] Comment on above: Order Comment: 109.1 Performed By: #### L 100.0100 ####[facility] [address] [place], [address] Monocytes/100 WBC (Bld) 7.1 % Normal 0-10 [facility] Comment on above: Order Comment: 109.1 Performed By: #### L 100.0100 ####[facility] [address] [place], [address] Neutrophils/100 WBC (Bld) 64.2 % Normal 47-70 [facility] Comment on above: Order Comment: 109.1 Performed By: #### L 100.0100 ####[facility] [address] [place], [address] Nucleated RBC (Bld) [#/Vol] 0 10*3/uL Normal 0-5 [facility] Comment on above: Order Comment: 109.1 Performed By: #### L 100.0100 ####[facility] [address] [place], [address] Platelet mean volume (Bld) [Entitic vol] 11.2 fL Normal 6.2-12.0 [facility] Comment on above: Order Comment: 109.1 Performed By: #### L 100.0100 ####[facility] [address] [place], [address] Platelets (Bld) [#/Vol] 188 10*3/uL Normal 150-450 [facility] Comment on above: Order Comment: 109.1 Performed By: #### L 100.0100 ####[facility] [address] [place], [address] RBC (Bld) [#/Vol] 4.65 10*6/uL Normal 4.6-6.2 [facility] Comment on above: Order Comment: 109.1 Performed By: #### L 100.0100 ####[facility] [address] [place], [address] RDW SD 41.6 fl Normal 35.1-43.9 [facility] Comment on above: Order Comment: 109.1 Performed By: #### L 100.0100 ####[facility] [address] [place], [address] WBC (Bld) [#/Vol] 7.8 10*3/uL Normal 4.4-11.0 [facility] Comment on above: Order Comment: 109.1 Performed By: #### L 100.0100 ####[facility] [address] [place], [address] Eosinophil percentageOrdered By: Renard Burgos on 08-12-2024 Eosinophils/100 WBC (Bld) 0.9 % 0-5 [facility] Erythrocyte distribution wid th (RBC) [Ratio]Ordered By: Renard Burgos on 08-12-2024 Erythrocyte distribution width (RBC) [Entitic vol] 41.6 fL 35.1-43.9 [facility] Erythrocyte distribution wid th ratioOrdered By: Renard Burgos on 08-12-2024 Erythrocyte distribution width (RBC) [Ratio] 12.7 % 11.6-14.6 [facility] Erythrocyte distribution wid th standard deviationOrdered By: Renard Burgos on 08-12-2024 Erythrocyte distribution width (RBC) [Ratio] 41.6 fl 35.1-43.9 [facility] Hematocrit Auto (Bld) [Volum e fraction]Ordered By: Renard Burgos on 08-12-2024 Hematocrit (Bld) [Volume fraction] 41.9 % 40-54 [facility] Hemoglobin measurementOrdere d By: Renard Burgos on 08-12-2024 Hemoglobin (Bld) [Mass/Vol] 14.1 g/dL 13.0-16.5 [facility] Immature granulocytes/100 WB C Auto (Bld)Ordered By: Renard Burgos on 08-12-2024 Immature granulocytes/100 WBC (Bld) 0.300 % 0.0-0.9 [facility] Comment on above: IG% - Immature Granu locytes (promyelocytes, myelocytes and metamyelocytes) > 1% indicates that a LEFT SHIFT is Present. Lymphocytes Auto (Unsp spec) [#/Vol]Ordered By: Renard Burgos on 08-12-2024 Lymphocytes (Bld) [#/Vol] 2.09 10*3/uL 0.83-4.51 [facility] Lymphocytes/100 WBC Auto (Un sp spec)Ordered By: Renard Burgos on 08-12-2024 Lymphocytes/100 WBC (Bld) 27.0 % 19-41 [facility] MCV (mean corpuscular volume ) determinationOrdered By: Renard Burgos on 08-12-2024 MCV (RBC) [Entitic vol] 90.1 fL 80-94 [facility] Mean corpuscular hemoglobin (MCH) determinationOrdered By: Renard Burgos on 08-12-2024 MCH (RBC) [Entitic mass] 30.3 pg 27.0-32.0 [facility] Mean corpuscular hemoglobin concentration (MCHC) determinationOrdered By: Renard Burgos on 08-12-2024 MCHC (RBC) [Mass/Vol] 33.7 g/dL 32-36 [facility] Mean platelet volume determi nationOrdered By: Renard Burgos on 08-12-2024 Platelet mean volume (Bld) [Entitic vol] 11.2 fL 6.2-12.0 [facility] Monocyte percentageOrdered B y: Renard Burgos on 08-12-2024 Monocytes/100 WBC (Bld) 7.1 % 0-10 [facility] Neutrophil percentageOrdered By: Renard Burgos on 08-12-2024 Neutrophils/100 WBC (Bld) 64.2 % 47-70 [facility] Nucleated red blood cell per centageOrdered By: Renard Burgos on 08-12-2024 Nucleated RBC/100 WBC (Bld) [Ratio] 0 % 0-5 [facility] Platelet countOrdered By: Garrick Bhatt on 08-12-2024 Platelets (Bld) [#/Vol] 188 10*3/uL 150-450 [facility] RBC Auto (Bld) [#/Vol]Ordere d By: Renard Burgos on 08-12-2024 RBC (Bld) [#/Vol] 4.65 10*6/uL 4.6-6.2 [facility] White blood cell (WBC) count Ordered By: Renard Burgos on 08-12-2024 WBC (Bld) [#/Vol] 7.8 10*3/uL 4.4-11.0 [facility] Absolute lymphocyte countOrd ered By: Renard Burgos on 08-05-2024 Lymphocytes Auto (Unsp spec) [#/Vol] 2.31 10*3/uL 0.83-4.51 [facility] Absolute neutrophil countOrd ered By: Renard Burgos on 08-05-2024 Neutrophils (Bld) [#/Vol] 5.4 10*3/uL 2.0-7.7 [facility] Automated lymphocyte count a s percentage of total leukocytesOrdered By: Renard Burgos on 08-05-2024 Lymphocytes/100 WBC Auto (Unsp spec) 26.9 % 19-41 [facility] Basophil percentageOrdered B y: Renard Burgos on 08-05-2024 Basophils/100 WBC (Bld) 0.6 % 0-1 [facility] CBC W/Diff, Automatedon Absolute Lymph 2.31 X10 3/uL Normal 0.83-4.51 [facility] Comment on above: Order Comment: 109.1 Performed By: #### L 100.0100 ####[facility] [address] [place], [address] Absolute Neut 5.4 X10 3/uL Normal 2.0-7.7 [facility] Comment on above: Order Comment: 109.1 Performed By: #### L 100.0100 ####[facility] [address] [place], [address] Basophils/100 WBC (Bld) 0.6 % Normal 0-1 [facility] Comment on above: Order Comment: 109.1 Performed By: #### L 100.0100 ####[facility] [address] [place], [address] Eosinophils/100 WBC (Bld) 0.8 % Normal 0-5 [facility] Comment on above: Order Comment: 109.1 Performed By: #### L 100.0100 ####[facility] [address] [place], [address] Erythrocyte distribution width (RBC) [Ratio] 12.7 % Normal 11.6-14.6 [facility] Comment on above: Order Comment: 109.1 Performed By: #### L 100.0100 ####[facility] [address] [place], [address] Hematocrit (Bld) [Volume fraction] 41.6 % Normal 40-54 [facility] Comment on above: Order Comment: 109.1 Performed By: #### L 100.0100 ####[facility] [address] [place], [address] Hemoglobin (Bld) [Mass/Vol] 13.7 g/dL Normal 13.0-16.5 [facility] Comment on above: Order Comment: 109.1 Performed By: #### L 100.0100 ####[facility] [address] [place], [address] IG% 0.300 Normal 0.0-0.9 [facility] Comment on above: Order Comment: 109.1 Result Comment: IG% - Immature Granulocytes (promyelocytes, myelocytes andmetamyelocytes) > 1% indicates that a LEFT SHIFT is Present. Performed By: #### L 100.0100 ####[facility] [address] [place], [address] Lymphocytes/100 WBC (Bld) 26.9 % Normal 19-41 [facility] Comment on above: Order Comment: 109.1 Performed By: #### L 100.0100 ####[facility] [address] [place], [address] MCH (RBC) [Entitic mass] 30.1 pg Normal 27.0-32.0 [facility] Comment on above: Order Comment: 109.1 Performed By: #### L 100.0100 ####[facility] [address] [place], [address] MCHC (RBC) [Mass/Vol] 32.9 g/dL Normal 32-36 [facility] Comment on above: Order Comment: 109.1 Performed By: #### L 100.0100 ####[facility] [address] [place], [address] MCV (RBC) [Entitic vol] 91.4 fL Normal 80-94 [facility] Comment on above: Order Comment: 109.1 Performed By: #### L 100.0100 ####[facility] [address] [place], [address] Monocytes/100 WBC (Bld) 8.3 % Normal 0-10 [facility] Comment on above: Order Comment: 109.1 Performed By: #### L 100.0100 ####[facility] [address] [place], [address] Neutrophils/100 WBC (Bld) 63.1 % Normal 47-70 [facility] Comment on above: Order Comment: 109.1 Performed By: #### L 100.0100 ####[facility] [address] [place], [address] Nucleated RBC (Bld) [#/Vol] 0 10*3/uL Normal 0-5 [facility] Comment on above: Order Comment: 109.1 Performed By: #### L 100.0100 ####[facility] [address] [place], [address] Platelet mean volume (Bld) [Entitic vol] 11.1 fL Normal 6.2-12.0 [facility] Comment on above: Order Comment: 109.1 Performed By: #### L 100.0100 ####[facility] [address] [place], [address] Platelets (Bld) [#/Vol] 199 10*3/uL Normal 150-450 [facility] Comment on above: Order Comment: 109.1 Performed By: #### L 100.0100 ####[facility] [address] [place], [address] RBC (Bld) [#/Vol] 4.55 10*6/uL Low 4.6-6.2 [facility] Comment on above: Order Comment: 109.1 Performed By: #### L 100.0100 ####[facility] [address] [place], [address] RDW SD 42.5 fl Normal 35.1-43.9 [facility] Comment on above: Order Comment: 109.1 Performed By: #### L 100.0100 ####[facility] [address] [place], [address] WBC (Bld) [#/Vol] 8.6 10*3/uL Normal 4.4-11.0 [facility] Comment on above: Order Comment: 109.1 Performed By: #### L 100.0100 ####[facility] [address] [place], [address] Eosinophil percentageOrdered By: Renard Burgos on 08-05-2024 Eosinophils/100 WBC (Bld) 0.8 % 0-5 [facility] Erythrocyte distribution wid th (RBC) [Ratio]Ordered By: Renard Burgos on 08-05-2024 Erythrocyte distribution width (RBC) [Entitic vol] 42.5 fL 35.1-43.9 [facility] Erythrocyte distribution wid th ratioOrdered By: Renard Burgos on 08-05-2024 Erythrocyte distribution width (RBC) [Ratio] 12.7 % 11.6-14.6 [facility] Erythrocyte distribution wid th standard deviationOrdered By: Renard Burgos on 08-05-2024 Erythrocyte distribution width (RBC) [Ratio] 42.5 fl 35.1-43.9 [facility] Hematocrit Auto (Bld) [Volum e fraction]Ordered By: Renard Burgos on 08-05-2024 Hematocrit (Bld) [Volume fraction] 41.6 % 40-54 [facility] Hemoglobin measurementOrdere d By: Renard Burgos on 08-05-2024 Hemoglobin (Bld) [Mass/Vol] 13.7 g/dL 13.0-16.5 [facility] Immature granulocytes/100 WB C Auto (Bld)Ordered By: Renard Burgos on 08-05-2024 Immature granulocytes/100 WBC (Bld) 0.300 % 0.0-0.9 [facility] Comment on above: IG% - Immature Granu locytes (promyelocytes, myelocytes and metamyelocytes) > 1% indicates that a LEFT SHIFT is Present. Lymphocytes Auto (Unsp spec) [#/Vol]Ordered By: Renard Burgos on 08-05-2024 Lymphocytes (Bld) [#/Vol] 2.31 10*3/uL 0.83-4.51 [facility] Lymphocytes/100 WBC Auto (Un sp spec)Ordered By: Renard Burgos on 08-05-2024 Lymphocytes/100 WBC (Bld) 26.9 % 19-41 [facility] MCV (mean corpuscular volume ) determinationOrdered By: Renard Burgos on 08-05-2024 MCV (RBC) [Entitic vol] 91.4 fL 80-94 [facility] Mean corpuscular hemoglobin (MCH) determinationOrdered By: Renard Burgos on 08-05-2024 MCH (RBC) [Entitic mass] 30.1 pg 27.0-32.0 [facility] Mean corpuscular hemoglobin concentration (MCHC) determinationOrdered By: Renard Burgos on 08-05-2024 MCHC (RBC) [Mass/Vol] 32.9 g/dL 32-36 [facility] Mean platelet volume determi nationOrdered By: Renard Burgos on 08-05-2024 Platelet mean volume (Bld) [Entitic vol] 11.1 fL 6.2-12.0 [facility] Monocyte percentageOrdered B y: Renard Burgos on 08-05-2024 Monocytes/100 WBC (Bld) 8.3 % 0-10 [facility] Neutrophil percentageOrdered By: Renard Burgos on 08-05-2024 Neutrophils/100 WBC (Bld) 63.1 % 47-70 [facility] Nucleated red blood cell per centageOrdered By: Renard Burgos on 08-05-2024 Nucleated RBC/100 WBC (Bld) [Ratio] 0 % 0-5 [facility] Platelet countOrdered By: Garrick Bhatt on 08-05-2024 Platelets (Bld) [#/Vol] 199 10*3/uL 150-450 [facility] RBC Auto (Bld) [#/Vol]Ordere d By: Renard Burgos on 08-05-2024 RBC (Bld) [#/Vol] 4.55 10*6/uL Low 4.6-6.2 [facility] White blood cell (WBC) count Ordered By: Renard Burgos on 08-05-2024 WBC (Bld) [#/Vol] 8.6 10*3/uL 4.4-11.0 [facility] Absolute lymphocyte countOrd ered By: Renard Burgos on 07-29-2024 Lymphocytes Auto (Unsp spec) [#/Vol] 1.93 10*3/uL 0.83-4.51 [facility] Absolute neutrophil countOrd ered By: Renard Burgos on 07-29-2024 Neutrophils (Bld) [#/Vol] 6.8 10*3/uL 2.0-7.7 [facility] Automated lymphocyte count a s percentage of total leukocytesOrdered By: Renard Hensleyrustam on 07-29-2024 Lymphocytes/100 WBC Auto (Unsp spec) 20.2 % 19-41 [facility] Basophil percentageOrdered B y: Renard Hensleyrustam on 07-29-2024 Basophils/100 WBC (Bld) 0.5 % 0-1 [facility] CBC W/Diff, Automatedon 07-01 Absolute Lymph 1.93 X10 3/uL Normal 0.83-4.51 [facility] Comment on above: Order Comment: 109-1 Performed By: #### L 100.0100 ####[facility] [address] [place], [address] Absolute Neut 6.8 X10 3/uL Normal 2.0-7.7 [facility] Comment on above: Order Comment: 109-1 Performed By: #### L 100.0100 ####[facility] [address] [place], [address] Basophils/100 WBC (Bld) 0.5 % Normal 0-1 [facility] Comment on above: Order Comment: 109-1 Performed By: #### L 100.0100 ####[facility] [address] [place], [address] Eosinophils/100 WBC (Bld) 0.7 % Normal 0-5 [facility] Comment on above: Order Comment: 109-1 Performed By: #### L 100.0100 ####[facility] [address] [place], [address] Erythrocyte distribution width (RBC) [Ratio] 12.8 % Normal 11.6-14.6 [facility] Comment on above: Order Comment: 109-1 Performed By: #### L 100.0100 ####[facility] [address] [place], [address] Hematocrit (Bld) [Volume fraction] 40.7 % Normal 40-54 [facility] Comment on above: Order Comment: 109-1 Performed By: #### L 100.0100 ####[facility] [address] [place], [address] Hemoglobin (Bld) [Mass/Vol] 13.5 g/dL Normal 13.0-16.5 [facility] Comment on above: Order Comment: 109-1 Performed By: #### L 100.0100 ####[facility] [address] [place], [address] IG% 0.400 Normal 0.0-0.9 [facility] Comment on above: Order Comment: 109-1 Result Comment: IG% - Immature Granulocytes (promyelocytes, myelocytes andmetamyelocytes) > 1% indicates that a LEFT SHIFT is Present. Performed By: #### L 100.0100 ####[facility] [address] [place], [address] Lymphocytes/100 WBC (Bld) 20.2 % Normal 19-41 [facility] Comment on above: Order Comment: 109-1 Performed By: #### L 100.0100 ####[facility] [address] [place], [address] MCH (RBC) [Entitic mass] 29.9 pg Normal 27.0-32.0 [facility] Comment on above: Order Comment: 109-1 Performed By: #### L 100.0100 ####[facility] [address] [place], [address] MCHC (RBC) [Mass/Vol] 33.2 g/dL Normal 32-36 [facility] Comment on above: Order Comment: 109-1 Performed By: #### L 100.0100 ####[facility] [address] [place], [address] MCV (RBC) [Entitic vol] 90.0 fL Normal 80-94 [facility] Comment on above: Order Comment: 109-1 Performed By: #### L 100.0100 ####[facility] [address] [place], [address] Monocytes/100 WBC (Bld) 7.1 % Normal 0-10 [facility] Comment on above: Order Comment: 109-1 Performed By: #### L 100.0100 ####[facility] [address] [place], [address] Neutrophils/100 WBC (Bld) 71.1 % High 47-70 [facility] Comment on above: Order Comment: 109-1 Performed By: #### L 100.0100 ####[facility] [address] [place], [address] Nucleated RBC (Bld) [#/Vol] 0 10*3/uL Normal 0-5 [facility] Comment on above: Order Comment: 109-1 Performed By: #### L 100.0100 ####[facility] [address] [place], [address] Platelet mean volume (Bld) [Entitic vol] 11.2 fL Normal 6.2-12.0 [facility] Comment on above: Order Comment: 109-1 Performed By: #### L 100.0100 ####[facility] [address] [place], [address] Platelets (Bld) [#/Vol] 218 10*3/uL Normal 150-450 [facility] Comment on above: Order Comment: 109-1 Performed By: #### L 100.0100 ####[facility] [address] [place], [address] RBC (Bld) [#/Vol] 4.52 10*6/uL Low 4.6-6.2 [facility] Comment on above: Order Comment: 109-1 Performed By: #### L 100.0100 ####[facility] [address] [place], [address] RDW SD 41.9 fl Normal 35.1-43.9 [facility] Comment on above: Order Comment: 109-1 Performed By: #### L 100.0100 ####[facility] [address] [place], [address] WBC (Bld) [#/Vol] 9.6 10*3/uL Normal 4.4-11.0 [facility] Comment on above: Order Comment: 109-1 Performed By: #### L 100.0100 ####[facility] [address] [place], [address] Eosinophil percentageOrdered By: Renard Burgos on 07-29-2024 Eosinophils/100 WBC (Bld) 0.7 % 0-5 [facility] Erythrocyte distribution wid th ratioOrdered By: Renard Burgos on 07-29-2024 Erythrocyte distribution width (RBC) [Ratio] 12.8 % 11.6-14.6 [facility] Erythrocyte distribution wid th standard deviationOrdered By: Renard Burgos on 07-29-2024 Erythrocyte distribution width (RBC) [Entitic vol] 41.9 fL 35.1-43.9 [facility] Erythrocyte distribution width (RBC) [Ratio] 41.9 fl 35.1-43.9 [facility] Hematocrit Auto (Bld) [Volum e fraction]Ordered By: Renard Burgos on 07-29-2024 Hematocrit (Bld) [Volume fraction] 40.7 % 40-54 [facility] Hemoglobin measurementOrdere d By: Renard Burgos on 07-29-2024 Hemoglobin (Bld) [Mass/Vol] 13.5 g/dL 13.0-16.5 [facility] Immature granulocytes/100 WB C Auto (Bld)Ordered By: Renard Burgos on 07-29-2024 Immature granulocytes/100 WBC (Bld) 0.400 % 0.0-0.9 [facility] Comment on above: IG% - Immature Granu locytes (promyelocytes, myelocytes and metamyelocytes) > 1% indicates that a LEFT SHIFT is Present. Lymphocytes Auto (Unsp spec) [#/Vol]Ordered By: Renard Burgos on 07-29-2024 Lymphocytes (Bld) [#/Vol] 1.93 10*3/uL 0.83-4.51 [facility] Lymphocytes/100 WBC Auto (Un sp spec)Ordered By: Renard Burgos on 07-29-2024 Lymphocytes/100 WBC (Bld) 20.2 % 19-41 [facility] MCV (mean corpuscular volume ) determinationOrdered By: Renard Burgos on 07-29-2024 MCV (RBC) [Entitic vol] 90.0 fL 80-94 [facility] Mean corpuscular hemoglobin (MCH) determinationOrdered By: Renard Burgos on 07-29-2024 MCH (RBC) [Entitic mass] 29.9 pg 27.0-32.0 [facility] Mean corpuscular hemoglobin concentration (MCHC) determinationOrdered By: Renard Burgos on 07-29-2024 MCHC (RBC) [Mass/Vol] 33.2 g/dL 32-36 [facility] Mean platelet volume determi nationOrdered By: Renard Burgos on 07-29-2024 Platelet mean volume (Bld) [Entitic vol] 11.2 fL 6.2-12.0 [facility] Monocyte percentageOrdered B y: Renard Burgos on 07-29-2024 Monocytes/100 WBC (Bld) 7.1 % 0-10 [facility] Neutrophil percentageOrdered By: Renard Burgos on 07-29-2024 Neutrophils/100 WBC (Bld) 71.1 % High 47-70 [facility] Nucleated red blood cell per centageOrdered By: Renard Burgos on 07-29-2024 Nucleated RBC/100 WBC (Bld) [Ratio] 0 % 0-5 [facility] Platelet countOrdered By: Garrick Bhatt on 07-29-2024 Platelets (Bld) [#/Vol] 218 10*3/uL 150-450 [facility] RBC Auto (Bld) [#/Vol]Ordere d By: Renard Burgos on 07-29-2024 RBC (Bld) [#/Vol] 4.52 10*6/uL Low 4.6-6.2 [facility] White blood cell (WBC) count Ordered By: Renard Burgos on 07-29-2024 WBC (Bld) [#/Vol] 9.6 10*3/uL 4.4-11.0 [facility] Absolute lymphocyte countOrd ered By: Renard Burgos on 07-22-2024 Lymphocytes Auto (Unsp spec) [#/Vol] 1.90 10*3/uL 0.83-4.51 [facility] Absolute neutrophil countOrd ered By: Renard Burgos on 07-22-2024 Neutrophils (Bld) [#/Vol] 5.2 10*3/uL 2.0-7.7 [facility] Automated lymphocyte count a s percentage of total leukocytesOrdered By: Renard Burgos on 07-22-2024 Lymphocytes/100 WBC Auto (Unsp spec) 23.9 % 19-41 [facility] Basophil percentageOrdered B y: Renard Burgos on 07-22-2024 Basophils/100 WBC (Bld) 0.6 % 0-1 [facility] CBC W/Diff, Automatedon 06-30 Absolute Lymph 1.90 X10 3/uL Normal 0.83-4.51 [facility] Comment on above: Order Comment: 109.1 Performed By: #### L 100.0100 ####[facility] [address] [facility] [place], [address] Absolute Neut 5.2 X10 3/uL Normal 2.0-7.7 [facility] Comment on above: Order Comment: 109.1 Performed By: #### L 100.0100 ####[facility] [address] [place], [address] Basophils/100 WBC (Bld) 0.6 % Normal 0-1 [facility] Comment on above: Order Comment: 109.1 Performed By: #### L 100.0100 ####[facility] [address] [place], [address] Eosinophils/100 WBC (Bld) 0.9 % Normal 0-5 [facility] Comment on above: Order Comment: 109.1 Performed By: #### L 100.0100 ####[facility] [address] [place], [address] Erythrocyte distribution width (RBC) [Ratio] 12.9 % Normal 11.6-14.6 [facility] Comment on above: Order Comment: 109.1 Performed By: #### L 100.0100 ####[facility] [address] [place], [address] Hematocrit (Bld) [Volume fraction] 41.4 % Normal 40-54 [facility] Comment on above: Order Comment: 109.1 Performed By: #### L 100.0100 ####[facility] [address] [place], [address] Hemoglobin (Bld) [Mass/Vol] 13.5 g/dL Normal 13.0-16.5 [facility] Comment on above: Order Comment: 109.1 Performed By: #### L 100.0100 ####[facility] [address] [place], [address] IG% 0.300 Normal 0.0-0.9 [facility] Comment on above: Order Comment: 109.1 Result Comment: IG% - Immature Granulocytes (promyelocytes, myelocytes andmetamyelocytes) > 1% indicates that a LEFT SHIFT is Present. Performed By: #### L 100.0100 ####[facility] [address] [place], [address] Lymphocytes/100 WBC (Bld) 23.9 % Normal 19-41 [facility] Comment on above: Order Comment: 109.1 Performed By: #### L 100.0100 ####[facility] [address] [place], [address] MCH (RBC) [Entitic mass] 29.8 pg Normal 27.0-32.0 [facility] Comment on above: Order Comment: 109.1 Performed By: #### L 100.0100 ####[facility] [address] [place], [address] MCHC (RBC) [Mass/Vol] 32.6 g/dL Normal 32-36 [facility] Comment on above: Order Comment: 109.1 Performed By: #### L 100.0100 ####[facility] [address] [place], [address] MCV (RBC) [Entitic vol] 91.4 fL Normal 80-94 [facility] Comment on above: Order Comment: 109.1 Performed By: #### L 100.0100 ####[facility] [address] [place], [address] Monocytes/100 WBC (Bld) 9.4 % Normal 0-10 [facility] Comment on above: Order Comment: 109.1 Performed By: #### L 100.0100 ####[facility] [address] [place], [address] Neutrophils/100 WBC (Bld) 64.9 % Normal 47-70 [facility] Comment on above: Order Comment: 109.1 Performed By: #### L 100.0100 ####[facility] [address] [place], [address] Nucleated RBC (Bld) [#/Vol] 0 10*3/uL Normal 0-5 [facility] Comment on above: Order Comment: 109.1 Performed By: #### L 100.0100 ####[facility] [address] [place], [address] Platelet mean volume (Bld) [Entitic vol] 11.5 fL Normal 6.2-12.0 [facility] Comment on above: Order Comment: 109.1 Performed By: #### L 100.0100 ####[facility] [address] [place], [address] Platelets (Bld) [#/Vol] 202 10*3/uL Normal 150-450 [facility] Comment on above: Order Comment: 109.1 Performed By: #### L 100.0100 ####[facility] [address] [place], [address] RBC (Bld) [#/Vol] 4.53 10*6/uL Low 4.6-6.2 [facility] Comment on above: Order Comment: 109.1 Performed By: #### L 100.0100 ####[facility] [address] [place], [address] RDW SD 42.7 fl Normal 35.1-43.9 [facility] Comment on above: Order Comment: 109.1 Performed By: #### L 100.0100 ####[facility] [address] [place], [address] WBC (Bld) [#/Vol] 8.0 10*3/uL Normal 4.4-11.0 [facility] Comment on above: Order Comment: 109.1 Performed By: #### L 100.0100 ####[facility] [address] [place], [address] Eosinophil percentageOrdered By: Renard Burgos on 07-22-2024 Eosinophils/100 WBC (Bld) 0.9 % 0-5 [facility] Erythrocyte distribution wid th ratioOrdered By: Renard Burgos on 07-22-2024 Erythrocyte distribution width (RBC) [Ratio] 12.9 % 11.6-14.6 [facility] Erythrocyte distribution wid th standard deviationOrdered By: Renard Burgos on 07-22-2024 Erythrocyte distribution width (RBC) [Entitic vol] 42.7 fL 35.1-43.9 [facility] Erythrocyte distribution width (RBC) [Ratio] 42.7 fl 35.1-43.9 [facility] Hematocrit Auto (Bld) [Volum e fraction]Ordered By: Renard Burgos on 07-22-2024 Hematocrit (Bld) [Volume fraction] 41.4 % 40-54 [facility] Hemoglobin measurementOrdere d By: Renard Burgos on 07-22-2024 Hemoglobin (Bld) [Mass/Vol] 13.5 g/dL 13.0-16.5 [facility] Immature granulocytes/100 WB C Auto (Bld)Ordered By: Renard Burgos on 07-22-2024 Immature granulocytes/100 WBC (Bld) 0.300 % 0.0-0.9 [facility] Comment on above: IG% - Immature Granu locytes (promyelocytes, myelocytes and metamyelocytes) > 1% indicates that a LEFT SHIFT is Present. Lymphocytes Auto (Unsp spec) [#/Vol]Ordered By: Renard Burgos on 07-22-2024 Lymphocytes (Bld) [#/Vol] 1.90 10*3/uL 0.83-4.51 [facility] Lymphocytes/100 WBC Auto (Un sp spec)Ordered By: Renard Burgos on 07-22-2024 Lymphocytes/100 WBC (Bld) 23.9 % 19-41 [facility] MCV (mean corpuscular volume ) determinationOrdered By: Renard Burgos on 07-22-2024 MCV (RBC) [Entitic vol] 91.4 fL 80-94 [facility] Mean corpuscular hemoglobin (MCH) determinationOrdered By: Renard Burgos on 07-22-2024 MCH (RBC) [Entitic mass] 29.8 pg 27.0-32.0 [facility] Mean corpuscular hemoglobin concentration (MCHC) determinationOrdered By: Renard Burgos on 07-22-2024 MCHC (RBC) [Mass/Vol] 32.6 g/dL 32-36 [facility] Mean platelet volume determi nationOrdered By: Renard Burgos on 07-22-2024 Platelet mean volume (Bld) [Entitic vol] 11.5 fL 6.2-12.0 [facility] Monocyte percentageOrdered B y: Renard Burgos on 07-22-2024 Monocytes/100 WBC (Bld) 9.4 % 0-10 [facility] Neutrophil percentageOrdered By: Renard Burgos on 07-22-2024 Neutrophils/100 WBC (Bld) 64.9 % 47-70 [facility] Nucleated red blood cell per centageOrdered By: Renard Burgos on 07-22-2024 Nucleated RBC/100 WBC (Bld) [Ratio] 0 % 0-5 [facility] Platelet countOrdered By: Garrick Bhatt on 07-22-2024 Platelets (Bld) [#/Vol] 202 10*3/uL 150-450 [facility] RBC Auto (Bld) [#/Vol]Ordere d By: Renard Burgos on 07-22-2024 RBC (Bld) [#/Vol] 4.53 10*6/uL Low 4.6-6.2 [facility] White blood cell (WBC) count Ordered By: Renard Burgos on 07-22-2024 WBC (Bld) [#/Vol] 8.0 10*3/uL 4.4-11.0 [facility] L506.1001on 07-16-2024 Vitamin D 25-OH 21.8 ng/mL Low 30-100 [facility] Comment on above: Order Comment: 109 Result Comment: Edilma min D StatusDeficiency: <20 ng/mL (50nmol/L)Insufficiency: 20-30 ng/mL (50-75 nmol/L)Sufficiency: 30-100 ng/mL (75-250 nmol/L)Toxicity: >100 ng/mL (>250 nmol/L) Performed By: #### L 506.1001 ####[facility] [address] [place], [address] Vitamin D, 25-hydroxyOrdered By: Renard Burgos on 07-16-2024 Vitamin D 25-Hydroxy 21.8 ng/mL Low 30-100 [facility] Comment on above: Vitamin D StatusDefi ciency: <20 ng/mL (50nmol/L)Insufficiency: 20-30 ng/mL (50-75 nmol/L)Sufficiency: 30-100 ng/mL (75-250 nmol/L)Toxicity: >100 ng/mL (>250 nmol/L) Absolute lymphocyte countOrd ered By: Renard Burgos on 07-15-2024 Lymphocytes Auto (Unsp spec) [#/Vol] 2.10 10*3/uL 0.83-4.51 [facility] Absolute neutrophil countOrd ered By: Renard Burgos on 07-15-2024 Neutrophils (Bld) [#/Vol] 6.9 10*3/uL 2.0-7.7 [facility] Automated lymphocyte count a s percentage of total leukocytesOrdered By: Renard Burgos on 07-15-2024 Lymphocytes/100 WBC Auto (Unsp spec) 21.0 % 19-41 [facility] Basophil percentageOrdered B y: Renard Burgos on 07-15-2024 Basophils/100 WBC (Bld) 0.5 % 0-1 [facility] CBC W/Diff, Automatedon 06-29 Absolute Lymph 2.10 X10 3/uL Normal 0.83-4.51 [facility] Comment on above: Order Comment: 109.1 Performed By: #### L 100.0100 ####[facility] [address] [place], [address] Absolute Neut 6.9 X10 3/uL Normal 2.0-7.7 [facility] Comment on above: Order Comment: 109.1 Performed By: #### L 100.0100 ####[facility] [address] [place], [address] Basophils/100 WBC (Bld) 0.5 % Normal 0-1 [facility] Comment on above: Order Comment: 109.1 Performed By: #### L 100.0100 ####[facility] [address] [place], [address] Eosinophils/100 WBC (Bld) 1.2 % Normal 0-5 [facility] Comment on above: Order Comment: 109.1 Performed By: #### L 100.0100 ####[facility] [address] [place], [address] Erythrocyte distribution width (RBC) [Ratio] 12.9 % Normal 11.6-14.6 [facility] Comment on above: Order Comment: 109.1 Performed By: #### L 100.0100 ####[facility] [address] [place], [address] Hematocrit (Bld) [Volume fraction] 41.0 % Normal 40-54 [facility] Comment on above: Order Comment: 109.1 Performed By: #### L 100.0100 ####[facility] [address] [place], [address] Hemoglobin (Bld) [Mass/Vol] 13.4 g/dL Normal 13.0-16.5 [facility] Comment on above: Order Comment: 109.1 Performed By: #### L 100.0100 ####[facility] [address] [place], [address] IG% 0.300 Normal 0.0-0.9 [facility] Comment on above: Order Comment: 109.1 Result Comment: IG% - Immature Granulocytes (promyelocytes, myelocytes andmetamyelocytes) > 1% indicates that a LEFT SHIFT is Present. Performed By: #### L 100.0100 ####[facility] [address] [place], [address] Lymphocytes/100 WBC (Bld) 21.0 % Normal 19-41 [facility] Comment on above: Order Comment: 109.1 Performed By: #### L 100.0100 ####[facility] [address] [place], [address] MCH (RBC) [Entitic mass] 29.7 pg Normal 27.0-32.0 [facility] Comment on above: Order Comment: 109.1 Performed By: #### L 100.0100 ####[facility] [address] [place], [address] MCHC (RBC) [Mass/Vol] 32.7 g/dL Normal 32-36 [facility] Comment on above: Order Comment: 109.1 Performed By: #### L 100.0100 ####[facility] [address] [place], [address] MCV (RBC) [Entitic vol] 90.9 fL Normal 80-94 [facility] Comment on above: Order Comment: 109.1 Performed By: #### L 100.0100 ####[facility] [address] [place], [address] Monocytes/100 WBC (Bld) 7.6 % Normal 0-10 [facility] Comment on above: Order Comment: 109.1 Performed By: #### L 100.0100 ####[facility] [address] [place], [address] Neutrophils/100 WBC (Bld) 69.4 % Normal 47-70 [facility] Comment on above: Order Comment: 109.1 Performed By: #### L 100.0100 ####[facility] [address] [place], [address] Nucleated RBC (Bld) [#/Vol] 0 10*3/uL Normal 0-5 [facility] Comment on above: Order Comment: 109.1 Performed By: #### L 100.0100 ####[facility] [address] [place], [address] Platelet mean volume (Bld) [Entitic vol] 11.4 fL Normal 6.2-12.0 [facility] Comment on above: Order Comment: 109.1 Performed By: #### L 100.0100 ####[facility] [address] [place], [address] Platelets (Bld) [#/Vol] 206 10*3/uL Normal 150-450 [facility] Comment on above: Order Comment: 109.1 Performed By: #### L 100.0100 ####[facility] [address] [place], [address] RBC (Bld) [#/Vol] 4.51 10*6/uL Low 4.6-6.2 [facility] Comment on above: Order Comment: 109.1 Performed By: #### L 100.0100 ####[facility] [address] [place], [address] RDW SD 42.3 fl Normal 35.1-43.9 [facility] Comment on above: Order Comment: 109.1 Performed By: #### L 100.0100 ####[facility] [address] [place], [address] WBC (Bld) [#/Vol] 10.0 10*3/uL Normal 4.4-11.0 [facility] Comment on above: Order Comment: 109.1 Performed By: #### L 100.0100 ####[facility] [address] [place], [address] Eosinophil percentageOrdered By: Renard Burgos on 07-15-2024 Eosinophils/100 WBC (Bld) 1.2 % 0-5 [facility] Erythrocyte distribution wid th ratioOrdered By: Renard Burgos on 07-15-2024 Erythrocyte distribution width (RBC) [Ratio] 12.9 % 11.6-14.6 [facility] Erythrocyte distribution wid th standard deviationOrdered By: Renard Burgos on 07-15-2024 Erythrocyte distribution width (RBC) [Entitic vol] 42.3 fL 35.1-43.9 [facility] Erythrocyte distribution width (RBC) [Ratio] 42.3 fl 35.1-43.9 [facility] Hematocrit Auto (Bld) [Volum e fraction]Ordered By: Renard Burgos on 07-15-2024 Hematocrit (Bld) [Volume fraction] 41.0 % 40-54 [facility] Hemoglobin measurementOrdere d By: Renard Brugos on 07-15-2024 Hemoglobin (Bld) [Mass/Vol] 13.4 g/dL 13.0-16.5 [facility] Immature granulocytes/100 WB C Auto (Bld)Ordered By: Renard Burgos on 07-15-2024 Immature granulocytes/100 WBC (Bld) 0.300 % 0.0-0.9 [facility] Comment on above: IG% - Immature Granu locytes (promyelocytes, myelocytes and metamyelocytes) > 1% indicates that a LEFT SHIFT is Present. Lymphocytes Auto (Unsp spec) [#/Vol]Ordered By: Renard Burgos on 07-15-2024 Lymphocytes (Bld) [#/Vol] 2.10 10*3/uL 0.83-4.51 [facility] Lymphocytes/100 WBC Auto (Un sp spec)Ordered By: eRnard Burgos on 07-15-2024 Lymphocytes/100 WBC (Bld) 21.0 % 19-41 [facility] MCV (mean corpuscular volume ) determinationOrdered By: Renard Burgos on 07-15-2024 MCV (RBC) [Entitic vol] 90.9 fL 80-94 [facility] Mean corpuscular hemoglobin (MCH) determinationOrdered By: Renard Burgos on 07-15-2024 MCH (RBC) [Entitic mass] 29.7 pg 27.0-32.0 [facility] Mean corpuscular hemoglobin concentration (MCHC) determinationOrdered By: Renard Burgos on 07-15-2024 MCHC (RBC) [Mass/Vol] 32.7 g/dL 32-36 [facility] Mean platelet volume determi nationOrdered By: Renard Burgos on 07-15-2024 Platelet mean volume (Bld) [Entitic vol] 11.4 fL 6.2-12.0 [facility] Monocyte percentageOrdered B y: Renard Burgos on 07-15-2024 Monocytes/100 WBC (Bld) 7.6 % 0-10 [facility] Neutrophil percentageOrdered By: Renard Burgos on 07-15-2024 Neutrophils/100 WBC (Bld) 69.4 % 47-70 [facility] Nucleated red blood cell per centageOrdered By: Renard Burgos on 07-15-2024 Nucleated RBC/100 WBC (Bld) [Ratio] 0 % 0-5 [facility] Platelet countOrdered By: Garrick Bhatt on 07-15-2024 Platelets (Bld) [#/Vol] 206 10*3/uL 150-450 [facility] RBC Auto (Bld) [#/Vol]Ordere d By: Renard Burgos on 07-15-2024 RBC (Bld) [#/Vol] 4.51 10*6/uL Low 4.6-6.2 [facility] White blood cell (WBC) count Ordered By: Renard Burgos on 07-15-2024 WBC (Bld) [#/Vol] 10.0 10*3/uL 4.4-11.0 [facility] Absolute lymphocyte countOrd ered By: Renard Burgos on 07-08-2024 Lymphocytes Auto (Unsp spec) [#/Vol] 2.02 10*3/uL 0.83-4.51 [facility] Absolute neutrophil countOrd ered By: Renard Burgos on 07-08-2024 Neutrophils (Bld) [#/Vol] 7.2 10*3/uL 2.0-7.7 [facility] Automated lymphocyte count a s percentage of total leukocytesOrdered By: Renard Burgos on 07-08-2024 Lymphocytes/100 WBC Auto (Unsp spec) 19.7 % 19-41 [facility] Basophil percentageOrdered B y: Renard Burgos on 07-08-2024 Basophils/100 WBC (Bld) 0.6 % 0-1 [facility] CBC W/Diff, Automatedon 06-29-2024 Absolute Lymph 2.02 X10 3/uL Normal 0.83-4.51 [facility] Comment on above: Order Comment: 109-1 Performed By: #### L 100.0100 ####[facility] [address] [place], [address] Absolute Neut 7.2 X10 3/uL Normal 2.0-7.7 [facility] Comment on above: Order Comment: 109-1 Performed By: #### L 100.0100 ####[facility] [address] [place], [address] Basophils/100 WBC (Bld) 0.6 % Normal 0-1 [facility] Comment on above: Order Comment: 109-1 Performed By: #### L 100.0100 ####[facility] [address] [place], [address] Eosinophils/100 WBC (Bld) 1.5 % Normal 0-5 [facility] Comment on above: Order Comment: 109-1 Performed By: #### L 100.0100 ####[facility] [address] [place], [address] Erythrocyte distribution width (RBC) [Ratio] 12.9 % Normal 11.6-14.6 [facility] Comment on above: Order Comment: 109-1 Performed By: #### L 100.0100 ####[facility] [address] [place], [address] Hematocrit (Bld) [Volume fraction] 40.6 % Normal 40-54 [facility] Comment on above: Order Comment: 109-1 Performed By: #### L 100.0100 ####[facility] [address] [place], [address] Hemoglobin (Bld) [Mass/Vol] 13.6 g/dL Normal 13.0-16.5 [facility] Comment on above: Order Comment: 109-1 Performed By: #### L 100.0100 ####[facility] [address] [place], [address] IG% 0.500 Normal 0.0-0.9 [facility] Comment on above: Order Comment: 109-1 Result Comment: IG% - Immature Granulocytes (promyelocytes, myelocytes andmetamyelocytes) > 1% indicates that a LEFT SHIFT is Present. Performed By: #### L 100.0100 ####[facility] [address] [place], [address] Lymphocytes/100 WBC (Bld) 19.7 % Normal 19-41 [facility] Comment on above: Order Comment: 109-1 Performed By: #### L 100.0100 ####[facility] [address] [place], [address] MCH (RBC) [Entitic mass] 30.5 pg Normal 27.0-32.0 [facility] Comment on above: Order Comment: 109-1 Performed By: #### L 100.0100 ####[facility] [address] [place], [address] MCHC (RBC) [Mass/Vol] 33.5 g/dL Normal 32-36 [facility] Comment on above: Order Comment: 109-1 Performed By: #### L 100.0100 ####[facility] [address] [place], [address] MCV (RBC) [Entitic vol] 91.0 fL Normal 80-94 [facility] Comment on above: Order Comment: 109-1 Performed By: #### L 100.0100 ####[facility] [address] [place], [address] Monocytes/100 WBC (Bld) 7.4 % Normal 0-10 [facility] Comment on above: Order Comment: 109-1 Performed By: #### L 100.0100 ####[facility] [address] [place], [address] Neutrophils/100 WBC (Bld) 70.3 % High 47-70 [facility] Comment on above: Order Comment: 109-1 Performed By: #### L 100.0100 ####[facility] [address] [place], [address] Nucleated RBC (Bld) [#/Vol] 0 10*3/uL Normal 0-5 [facility] Comment on above: Order Comment: 109-1 Performed By: #### L 100.0100 ####[facility] [address] [place], [address] Platelet mean volume (Bld) [Entitic vol] 11.1 fL Normal 6.2-12.0 [facility] Comment on above: Order Comment: 109-1 Performed By: #### L 100.0100 ####[facility] [address] [place], [address] Platelets (Bld) [#/Vol] 207 10*3/uL Normal 150-450 [facility] Comment on above: Order Comment: 109-1 Performed By: #### L 100.0100 ####[facility] [address] [place], [address] RBC (Bld) [#/Vol] 4.46 10*6/uL Low 4.6-6.2 [facility] Comment on above: Order Comment: 109-1 Performed By: #### L 100.0100 ####[facility] [address] [place], [address] RDW SD 42.5 fl Normal 35.1-43.9 [facility] Comment on above: Order Comment: 109-1 Performed By: #### L 100.0100 ####[facility] [address] [place], [address] WBC (Bld) [#/Vol] 10.3 10*3/uL Normal 4.4-11.0 [facility] Comment on above: Order Comment: 109-1 Performed By: #### L 100.0100 ####[facility] [address] [place], [address] Eosinophil percentageOrdered By: Renard Burgos on 07-08-2024 Eosinophils/100 WBC (Bld) 1.5 % 0-5 [facility] Erythrocyte distribution wid th ratioOrdered By: Renard Burgos on 07-08-2024 Erythrocyte distribution width (RBC) [Ratio] 12.9 % 11.6-14.6 [facility] Erythrocyte distribution wid th standard deviationOrdered By: Renard Burgos on 07-08-2024 Erythrocyte distribution width (RBC) [Entitic vol] 42.5 fL 35.1-43.9 [facility] Erythrocyte distribution width (RBC) [Ratio] 42.5 fl 35.1-43.9 [facility] Hematocrit Auto (Bld) [Volum e fraction]Ordered By: Renard Burgos on 07-08-2024 Hematocrit (Bld) [Volume fraction] 40.6 % 40-54 [facility] Hemoglobin measurementOrdere d By: Renard Burgos on 07-08-2024 Hemoglobin (Bld) [Mass/Vol] 13.6 g/dL 13.0-16.5 [facility] Immature granulocytes/100 WB C Auto (Bld)Ordered By: Renard Burgos on 07-08-2024 Immature granulocytes/100 WBC (Bld) 0.500 % 0.0-0.9 [facility] Comment on above: IG% - Immature Granu locytes (promyelocytes, myelocytes and metamyelocytes) > 1% indicates that a LEFT SHIFT is Present. Lymphocytes Auto (Unsp spec) [#/Vol]Ordered By: Renard Burgos on 07-08-2024 Lymphocytes (Bld) [#/Vol] 2.02 10*3/uL 0.83-4.51 [facility] Lymphocytes/100 WBC Auto (Un sp spec)Ordered By: Renard Burgos on 07-08-2024 Lymphocytes/100 WBC (Bld) 19.7 % 19-41 [facility] MCV (mean corpuscular volume ) determinationOrdered By: Renard Burgos on 07-08-2024 MCV (RBC) [Entitic vol] 91.0 fL 80-94 [facility] Mean corpuscular hemoglobin (MCH) determinationOrdered By: Renard Burgos on 07-08-2024 MCH (RBC) [Entitic mass] 30.5 pg 27.0-32.0 [facility] Mean corpuscular hemoglobin concentration (MCHC) determinationOrdered By: Renard Burgos on 07-08-2024 MCHC (RBC) [Mass/Vol] 33.5 g/dL 32-36 [facility] Mean platelet volume determi nationOrdered By: Renard Burgso on 07-08-2024 Platelet mean volume (Bld) [Entitic vol] 11.1 fL 6.2-12.0 [facility] Monocyte percentageOrdered B y: Renard Burgos on 07-08-2024 Monocytes/100 WBC (Bld) 7.4 % 0-10 [facility] Neutrophil percentageOrdered By: Renard Burgos on 07-08-2024 Neutrophils/100 WBC (Bld) 70.3 % High 47-70 [facility] Nucleated red blood cell per centageOrdered By: Renard Burgos on 07-08-2024 Nucleated RBC/100 WBC (Bld) [Ratio] 0 % 0-5 [facility] Platelet countOrdered By: Garrick Bhatt on 07-08-2024 Platelets (Bld) [#/Vol] 207 10*3/uL 150-450 [facility] RBC Auto (Bld) [#/Vol]Ordere d By: Renard Burgos on 07-08-2024 RBC (Bld) [#/Vol] 4.46 10*6/uL Low 4.6-6.2 [facility] White blood cell (WBC) count Ordered By: Renard Burgos on 07-08-2024 WBC (Bld) [#/Vol] 10.3 10*3/uL 4.4-11.0 [facility] Absolute lymphocyte countOrd ered By: Renard Burgos on 07-01-2024 Lymphocytes Auto (Unsp spec) [#/Vol] 2.03 10*3/uL 0.83-4.51 [facility] Absolute neutrophil countOrd ered By: Renard Burgos on 07-01-2024 Neutrophils (Bld) [#/Vol] 7.0 10*3/uL 2.0-7.7 [facility] Automated lymphocyte count a s percentage of total leukocytesOrdered By: Renard Burgos on 07-01-2024 Lymphocytes/100 WBC Auto (Unsp spec) 20.3 % 19-41 [facility] Basophil percentageOrdered B y: Renard Burgos on 07-01-2024 Basophils/100 WBC (Bld) 0.6 % 0-1 [facility] CBC W/Diff, Automatedon Absolute Lymph 2.03 X10 3/uL Normal 0.83-4.51 [facility] Comment on above: Order Comment: 109 Performed By: #### L 100.0100 ####[facility] [address] [place], [place], [address] Absolute Neut 7.0 X10 3/uL Normal 2.0-7.7 [facility] Comment on above: Order Comment: 109 Performed By: #### L 100.0100 ####[facility] [address] [place], [address] Basophils/100 WBC (Bld) 0.6 % Normal 0-1 [facility] Comment on above: Order Comment: 109 Performed By: #### L 100.0100 ####[facility] [address] [place], [address] Eosinophils/100 WBC (Bld) 1.3 % Normal 0-5 [facility] Comment on above: Order Comment: 109 Performed By: #### L 100.0100 ####[facility] [address] [place], [address] Erythrocyte distribution width (RBC) [Ratio] 13.1 % Normal 11.6-14.6 [facility] Comment on above: Order Comment: 109 Performed By: #### L 100.0100 ####[facility] [address] [place], [address] Hematocrit (Bld) [Volume fraction] 41.7 % Normal 40-54 [facility] Comment on above: Order Comment: 109 Performed By: #### L 100.0100 ####[facility] [address] [place], [address] Hemoglobin (Bld) [Mass/Vol] 13.6 g/dL Normal 13.0-16.5 [facility] Comment on above: Order Comment: 109 Performed By: #### L 100.0100 ####[facility] [address] [place], [address] IG% 0.500 Normal 0.0-0.9 [facility] Comment on above: Order Comment: 109 Result Comment: IG% - Immature Granulocytes (promyelocytes, myelocytes andmetamyelocytes) > 1% indicates that a LEFT SHIFT is Present. Performed By: #### L 100.0100 ####[facility] [address] [place], [address] Lymphocytes/100 WBC (Bld) 20.3 % Normal 19-41 [facility] Comment on above: Order Comment: 109 Performed By: #### L 100.0100 ####[facility] [address] [place], [address] MCH (RBC) [Entitic mass] 29.6 pg Normal 27.0-32.0 [facility] Comment on above: Order Comment: 109 Performed By: #### L 100.0100 ####[facility] [address] [place], [address] MCHC (RBC) [Mass/Vol] 32.6 g/dL Normal 32-36 [facility] Comment on above: Order Comment: 109 Performed By: #### L 100.0100 ####[facility] [address] [place], [address] MCV (RBC) [Entitic vol] 90.8 fL Normal 80-94 [facility] Comment on above: Order Comment: 109 Performed By: #### L 100.0100 ####[facility] [address] [place], [address] Monocytes/100 WBC (Bld) 6.8 % Normal 0-10 [facility] Comment on above: Order Comment: 109 Performed By: #### L 100.0100 ####[facility] [address] [place], [address] Neutrophils/100 WBC (Bld) 70.5 % High 47-70 [facility] Comment on above: Order Comment: 109 Performed By: #### L 100.0100 ####[facility] [address] [place], [address] Nucleated RBC (Bld) [#/Vol] 0 10*3/uL Normal 0-5 [facility] Comment on above: Order Comment: 109 Performed By: #### L 100.0100 ####[facility] [address] [place], [address] Platelet mean volume (Bld) [Entitic vol] 11.0 fL Normal 6.2-12.0 [facility] Comment on above: Order Comment: 109 Performed By: #### L 100.0100 ####[facility] [address] [place], [address] Platelets (Bld) [#/Vol] 208 10*3/uL Normal 150-450 [facility] Comment on above: Order Comment: 109 Performed By: #### L 100.0100 ####[facility] [address] [place], [address] RBC (Bld) [#/Vol] 4.59 10*6/uL Low 4.6-6.2 [facility] Comment on above: Order Comment: 109 Performed By: #### L 100.0100 ####[facility] [address] [place], [address] RDW SD 42.8 fl Normal 35.1-43.9 [facility] Comment on above: Order Comment: 109 Performed By: #### L 100.0100 ####[facility] [address] [place], [address] WBC (Bld) [#/Vol] 10.0 10*3/uL Normal 4.4-11.0 [facility] Comment on above: Order Comment: 109 Performed By: #### L 100.0100 ####[facility] [address] [place], [address] Eosinophil percentageOrdered By: Renard Burgos on 07-01-2024 Eosinophils/100 WBC (Bld) 1.3 % 0-5 [facility] Erythrocyte distribution wid th ratioOrdered By: Renard Burgos on 07-01-2024 Erythrocyte distribution width (RBC) [Ratio] 13.1 % 11.6-14.6 [facility] Erythrocyte distribution wid th standard deviationOrdered By: Renard Burgos on 07-01-2024 Erythrocyte distribution width (RBC) [Entitic vol] 42.8 fL 35.1-43.9 [facility] Erythrocyte distribution width (RBC) [Ratio] 42.8 fl 35.1-43.9 [facility] Hematocrit Auto (Bld) [Volum e fraction]Ordered By: Renard Burgos on 07-01-2024 Hematocrit (Bld) [Volume fraction] 41.7 % 40-54 [facility] Hemoglobin measurementOrdere d By: Renard Burgos on 07-01-2024 Hemoglobin (Bld) [Mass/Vol] 13.6 g/dL 13.0-16.5 [facility] Immature granulocytes/100 WB C Auto (Bld)Ordered By: Renard Burgos on 07-01-2024 Immature granulocytes/100 WBC (Bld) 0.500 % 0.0-0.9 [facility] Comment on above: IG% - Immature Granu locytes (promyelocytes, myelocytes and metamyelocytes) > 1% indicates that a LEFT SHIFT is Present. Lymphocytes Auto (Unsp spec) [#/Vol]Ordered By: Renard Burgos on 07-01-2024 Lymphocytes (Bld) [#/Vol] 2.03 10*3/uL 0.83-4.51 [facility] Lymphocytes/100 WBC Auto (Un sp spec)Ordered By: Renard Burgos on 07-01-2024 Lymphocytes/100 WBC (Bld) 20.3 % 19-41 [facility] MCV (mean corpuscular volume ) determinationOrdered By: Renard Burgos on 07-01-2024 MCV (RBC) [Entitic vol] 90.8 fL 80-94 [facility] Mean corpuscular hemoglobin (MCH) determinationOrdered By: Renard Burgos on 07-01-2024 MCH (RBC) [Entitic mass] 29.6 pg 27.0-32.0 [facility] Mean corpuscular hemoglobin concentration (MCHC) determinationOrdered By: Renard Burgos on 07-01-2024 MCHC (RBC) [Mass/Vol] 32.6 g/dL 32-36 [facility] Mean platelet volume determi nationOrdered By: Renard Burgos on 07-01-2024 Platelet mean volume (Bld) [Entitic vol] 11.0 fL 6.2-12.0 [facility] Monocyte percentageOrdered B y: Renard Burgos on 07-01-2024 Monocytes/100 WBC (Bld) 6.8 % 0-10 [facility] Neutrophil percentageOrdered By: Renard Burgos on 07-01-2024 Neutrophils/100 WBC (Bld) 70.5 % High 47-70 [facility] Nucleated red blood cell per centageOrdered By: Renard Burgos on 07-01-2024 Nucleated RBC/100 WBC (Bld) [Ratio] 0 % 0-5 [facility] Platelet countOrdered By: Garrick Bhatt on 07-01-2024 Platelets (Bld) [#/Vol] 208 10*3/uL 150-450 [facility] RBC Auto (Bld) [#/Vol]Ordere d By: Renard Burgos on 07-01-2024 RBC (Bld) [#/Vol] 4.59 10*6/uL Low 4.6-6.2 [facility] White blood cell (WBC) count Ordered By: Renard Burgos on 07-01-2024 WBC (Bld) [#/Vol] 10.0 10*3/uL 4.4-11.0 [facility] Urine Cultureon 06-30-2024 URC Normal [facility] Comment on above: Performed By: #### M 100.2200, L400.0001 ####[facility] [address] [facility] [place], [place], [address] Bilirubin Test strip Ql (U)O rdered By: Renard Burgos on 06-27-2024 Bilirubin Ql (U) Negative Negative [facility] Epithelial cells.squamous LM Ql (Urine sed)Ordered By: Renard Burgos on 06-27-2024 Epithelial cells.squamous LM.HPF (Urine sed) [#/Area] 0 /[HPF] 0-5 [facility] Glucose Ql (U)Ordered By: Garrick Bhatt on 06-27-2024 Urine Glucose (UA) Normal mg/dl Normal [facility] Ketones Test strip Ql (U)Ord ered By: Renard Burgos on 06-27-2024 Ketones Ql (U) Negative Negative [facility] Microscopic analysis of urin e for red blood cells (RBC)Ordered By: Renard Burgos on 06-27-2024 Microscopic analysis of urine for red blood cells (RBC) 0 SEEN /hpf 0-5 [facility] Urine RBC 0 SEEN /hpf 0-5 [facility] Mucus LM Ql (Urine sed)Order ed By: Renard Burgos on 06-27-2024 Mucus Ql (Urine sed) 0 SEEN /hpf [facility] Nitrite Test strip Ql (U)Ord ered By: Renard Burgos on 06-27-2024 Nitrite Ql (U) Negative Negative [facility] Protein Test strip Ql (U)Ord ered By: Renard Burgos on 06-27-2024 Protein Ql (U) 15 mg/dl High Negative [facility] Squamous epithelial cells de tection in urine sediment by light microscopyOrdered By: Renard Burgos on 06-27-2024 Epithelial cells.squamous LM Ql (Urine sed) 0 SEEN /hpf 0-5 [facility] Urinalysis, Completeon 06-27 RBC 0 SEEN Normal 0-5 [facility] Comment on above: Order Comment: [facility] SPECIMEN Performed By: #### M 100.2200, L400.0001 ####[facility] [address] [place], [place], [id number] Urine blood detectionOrdered By: Renard Burgos on 06-27-2024 Urine Occult Blood Negative Negative [facility] Urine clarityOrdered By: Lyubov Burgos on 06-27-2024 Clarity (U) Clear Clear [facility] Urine color determinationOrd ered By: Renard Burgos on 06-27-2024 Color (U) Yellow Yellow [facility] Urine cultureOrdered By: Lyubov Burgos on 06-27-2024 Bacteria identified Cx Nom (U) Staphylococcus warneri Abnormal [facility] Bacteria identified Cx Nom (U) Aerococcus viridans. Abnormal [facility] Bacteria identified Cx Nom (U) Presumptive C albicans Abnormal [facility] Bacteria identified Cx Nom (U) Staphylococcus warneri Abnormal [facility] Bacteria identified Cx Nom (U) Aerococcus viridans. Abnormal [facility] Bacteria identified Cx Nom (U) Presumptive C albicans Abnormal [facility] Urine glucose detectionOrder ed By: Renard Burgos on 06-27-2024 Glucose Ql (U) Normal mg/dl Normal [facility] Urine leukocyte esterase det ection by dipstickOrdered By: Renard Burgos on 06-27-2024 Leukocyte esterase Test strip Ql (U) Negative Negative [facility] Urine pHOrdered By: Renard ocampo on 06-27-2024 pH (U) 7.0 [pH] 5.0 - 8.0 [facility] Urine sediment bacteria coun t by microscopy (number/high power field)Ordered By: Renard Burgos on 06-27-2024 Bacteria LM.HPF (Urine sed) [#/Area] 0 /[HPF] None Seen [facility] Urine specific gravity measu rementOrdered By: Renard Burgos on 06-27-2024 Specific gravity (U) [Rel density] 1.010 1.002-1.030 [facility] Urine urobilinogen measureme ntOrdered By: Renard Burgos on 06-27-2024 Urobilinogen Ql (U) 4 mg/dl High Normal [facility] Urobilinogen Ql (U)Ordered B y: Renard Burgos on 06-27-2024 Urobilinogen (U) [Mass/Vol] 4 mg/dL High Normal [facility] White blood cell countOrdere d By: Renard Burgos on 06-27-2024 Urine WBC 0 SEEN /hpf 0-5 [facility] White blood cell count 0 SEEN /hpf 0-[address] [facility] [address] CHEST WO IV CONTRASTon CT [...] 8:07 AM EST Cough x 2months Normal [facility] CT Chest WO contraston 06-26 Nonspecific groundglass densities are noted in the bilateral lower lobes. 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 [facility] Maria Eugenia Ruiz MD - 06/26/2024 Patient Name: [facility] : 1955 [id number] Exam Date/Time: 06/24/2024 16:30 Procedure: CT CHEST [...] Electronically Signed Date/Time: 06/26/2024 8:07 AM EST [employer] CT Chest WO contrastOrdered By: Maria Eugenia Ruiz on 06-26-2024 [employer] Work Phone: Absolute lymphocyte countOrd ered By: Renard Burgos on 06-24-2024 Lymphocytes Auto (Unsp spec) [#/Vol] 1.65 10*3/uL 0.83-4.51 [facility] Absolute neutrophil countOrd ered By: Renard Burgos on 06-24-2024 Neutrophils (Bld) [#/Vol] 10.2 10*3/uL High 2.0-7.7 [facility] Automated lymphocyte count a s percentage of total leukocytesOrdered By: Renard Burgos on 06-24-2024 Lymphocytes/100 WBC Auto (Unsp spec) 12.8 % Low 19-41 [facility] Basic Metabolic Profile (BMP )on 06-24-2024 BUN/CRE 24.9 RATIO High 10-20 [facility] Comment on above: Order Comment: 109.1 Performed By: #### L 100.0100, L500.2500 ####[facility] [address] [place], [address] CA,Total 8.3 mg/dL Low 8.5-10.1 [facility] Comment on above: Order Comment: 109.1 Performed By: #### L 100.0100, L500.2500 ####[facility] [address] [place], [address] Chloride [Moles/Vol] 107 mmol/L Normal 98-107 [facility] Comment on above: Order Comment: 109.1 Performed By: #### L 100.0100, L500.2500 ####[facility] [address] [place], [address] CO2 [Moles/Vol] 24.0 mmol/L Normal 21.0-32.0 [facility] Comment on above: Order Comment: 109.1 Performed By: #### L 100.0100, L500.2500 ####[facility] [address] [place], [address] Creatinine [Mass/Vol] 0.60 mg/dL Low 0.70-1.30 [facility] Comment on above: Order Comment: 109.1 Result Comment: The validity of the calculated GFR GFRAA in patients over70 years has not been determined. Clinical correlation isessential. Performed By: #### L 100.0100, L500.2500 ####[facility] [address] [place], [address] EST GFR - AA 172 mL/min Normal >60 [facility] Comment on above: Order Comment: 109.1 Result Comment: Afri can Cymraes GFR Calc Performed By: #### L 100.0100, L500.2500 ####[facility] [address] [place], [address] GAP 8 Normal 5-15 [facility] Comment on above: Order Comment: 109.1 Performed By: #### L 100.0100, L500.2500 ####[facility] [address] [place], [address] GFR/1.73 sq M.predicted among non-blacks MDRD (S/P/Bld) [Vol rate/Area] 142 mL/min/{1.73_m2} Normal >60 [facility] Comment on above: Order Comment: 109.1 Result Comment: Non- GFR Calc Performed By: #### L 100.0100, L500.2500 ####[facility] [address] [place], [address] Glucose [Mass/Vol] 101 mg/dL Normal 74-106 [facility] Comment on above: Order Comment: 109.1 Result Comment: Fast ing Glucose result from 100 to 125 mg/dLsuggests IMPAIRED HOMEOSTASIS per A.D.A. criteria. Performed By: #### L 100.0100, L500.2500 ####[facility] [address] [place], [address] Potassium [Moles/Vol] 4.1 mmol/L Normal 3.5-5.1 [facility] Comment on above: Order Comment: 109.1 Performed By: #### L 100.0100, L500.2500 ####[facility] [address] [place], [address] Sodium [Moles/Vol] 139 mmol/L Normal 136-145 [facility] Comment on above: Order Comment: 109.1 Performed By: #### L 100.0100, L500.2500 ####[facility] [address] [place], [address] Urea nitrogen [Mass/Vol] 15 mg/dL Normal 7-18 [facility] Comment on above: Order Comment: 109.1 Performed By: #### L 100.0100, L500.2500 ####[facility] [address] [place], [address] Basophil percentageOrdered B y: Renard Burgos on 06-24-2024 Basophils/100 WBC (Bld) 0.5 % 0-1 [facility] Blood urea nitrogen (BUN)/cr eatinine ratioOrdered By: Renard Burgos on 06-24-2024 Urea nitrogen/Creatinine [Mass ratio] 24.9 mg/mg High 10-20 [facility] CBC W/Diff, Automatedon - Absolute Lymph 1.65 X10 3/uL Normal 0.83-4.51 [facility] Comment on above: Order Comment: 109.1 Performed By: #### L 100.0100, L500.2500 ####[facility] [address] [place], [address] Absolute Neut 10.2 X10 3/uL High 2.0-7.7 [facility] Comment on above: Order Comment: 109.1 Performed By: #### L 100.0100, L500.2500 ####[facility] [address] [place], [address] Basophils/100 WBC (Bld) 0.5 % Normal 0-1 [facility] Comment on above: Order Comment: 109.1 Performed By: #### L 100.0100, L500.2500 ####[facility] [address] [place], [address] Eosinophils/100 WBC (Bld) 0.8 % Normal 0-5 [facility] Comment on above: Order Comment: 109.1 Performed By: #### L 100.0100, L500.2500 ####[facility] [address] [place], [address] Erythrocyte distribution width (RBC) [Ratio] 13.2 % Normal 11.6-14.6 [facility] Comment on above: Order Comment: 109.1 Performed By: #### L 100.0100, L500.2500 ####[facility] [address] [place], [address] Hematocrit (Bld) [Volume fraction] 41.8 % Normal 40-54 [facility] Comment on above: Order Comment: 109.1 Performed By: #### L 100.0100, L500.2500 ####[facility] [address] [place], [address] Hemoglobin (Bld) [Mass/Vol] 13.6 g/dL Normal 13.0-16.5 [facility] Comment on above: Order Comment: 109.1 Performed By: #### L 100.0100, L500.2500 ####[facility] [address] [place], [address] IG% 0.500 Normal 0.0-0.9 [facility] Comment on above: Order Comment: 109.1 Result Comment: IG% - Immature Granulocytes (promyelocytes, myelocytes andmetamyelocytes) > 1% indicates that a LEFT SHIFT is Present. Performed By: #### L 100.0100, L500.2500 ####[facility] [address] [place], [address] Lymphocytes/100 WBC (Bld) 12.8 % Low 19-41 [facility] Comment on above: Order Comment: 109.1 Performed By: #### L 100.0100, L500.2500 ####[facility] [address] [place], [address] MCH (RBC) [Entitic mass] 30.2 pg Normal 27.0-32.0 [facility] Comment on above: Order Comment: 109.1 Performed By: #### L 100.0100, L500.2500 ####[facility] [address] [place], [address] MCHC (RBC) [Mass/Vol] 32.5 g/dL Normal 32-36 [facility] Comment on above: Order Comment: 109.1 Performed By: #### L 100.0100, L500.2500 ####[facility] [address] [place], [address] MCV (RBC) [Entitic vol] 92.7 fL Normal 80-94 [facility] Comment on above: Order Comment: 109.1 Performed By: #### L 100.0100, L500.2500 ####[facility] [address] [place], [address] Monocytes/100 WBC (Bld) 6.4 % Normal 0-10 [facility] Comment on above: Order Comment: 109.1 Performed By: #### L 100.0100, L500.2500 ####[facility] [address] [place], [address] Neutrophils/100 WBC (Bld) 79.0 % High 47-70 [facility] Comment on above: Order Comment: 109.1 Performed By: #### L 100.0100, L500.2500 ####[facility] [address] [place], [address] Nucleated RBC (Bld) [#/Vol] 0 10*3/uL Normal 0-5 [facility] Comment on above: Order Comment: 109.1 Performed By: #### L 100.0100, L500.2500 ####[facility] [address] [place], [address] Platelet mean volume (Bld) [Entitic vol] 11.3 fL Normal 6.2-12.0 [facility] Comment on above: Order Comment: 109.1 Performed By: #### L 100.0100, L500.2500 ####[facility] [address] [place], [address] Platelets (Bld) [#/Vol] 171 10*3/uL Normal 150-450 [facility] Comment on above: Order Comment: 109.1 Performed By: #### L 100.0100, L500.2500 ####[facility] [address] [place], [address] RBC (Bld) [#/Vol] 4.51 10*6/uL Low 4.6-6.2 [facility] Comment on above: Order Comment: 109.1 Performed By: #### L 100.0100, L500.2500 ####[facility] [address] [place], [address] RDW SD 45.1 fl High 35.1-43.9 [facility] Comment on above: Order Comment: 109.1 Performed By: #### L 100.0100, L500.2500 ####[facility] [address] [place], [address] WBC (Bld) [#/Vol] 12.9 10*3/uL High 4.4-11.0 [facility] Comment on above: Order Comment: 109.1 Performed By: #### L 100.0100, L500.2500 ####[facility] [address] [place], [address] CT Chest [facility] 06-24 Radiology Study observation (narrative) Ericka smith Carbon dioxide measurementOr dered By: Renard Burgos on 06-24-2024 CO2 [Moles/Vol] 24.0 mmol/L 21.0-32.0 [facility] Chloride measurementOrdered By: Renard Brugos on 06-24-2024 Chloride [Moles/Vol] 107 mmol/L 98-107 [facility] Eosinophil percentageOrdered By: Renard Burgos on 06-24-2024 Eosinophils/100 WBC (Bld) 0.8 % 0-5 [facility] Erythrocyte distribution wid th ratioOrdered By: Renard Burgos on 06-24-2024 Erythrocyte distribution width (RBC) [Ratio] 13.2 % 11.6-14.6 [facility] Erythrocyte distribution wid th standard deviationOrdered By: Renard Burgos on 06-24-2024 Erythrocyte distribution width (RBC) [Entitic vol] 45.1 fL High 35.1-43.9 [facility] Erythrocyte distribution width (RBC) [Ratio] 45.1 fl High 35.1-43.9 [facility] Estimated glomerular filtrat ion rate (GFR) AmericanOrdered By: Renard Burgos on 06-24-2024 Estimated GFR (MDRD) Amer 172 mL/min >60 [facility] Comment on above: GFR Calc Glomerular filtration rate ( GFR) estimationOrdered By: Renard Burgos on 06-24-2024 Estimated GFR (MDRD) Non-Af Amer 142 mL/min >60 [facility] Comment on above: Non- GFR Calc GFR/1.73 sq M.predicted among non-blacks MDRD (S/P/Bld) [Vol rate/Area] 142 mL/min/{1.73_m2} >60 [facility] Comment on above: Non- GFR Calc Glucose measurementOrdered B y: Renard Burgos on 06-24-2024 Glucose [Mass/Vol] 101 mg/dL 74-106 [facility] Comment on above: Fasting Glucose resu lt from 100 to 125 mg/dL suggests IMPAIRED HOMEOSTASIS per A.D.A. criteria. Hematocrit Auto (Bld) [Volum e fraction]Ordered By: Renard Burgos on 06-24-2024 Hematocrit (Bld) [Volume fraction] 41.8 % 40-54 [facility] Hemoglobin measurementOrdere d By: Renard Burgos on 06-24-2024 Hemoglobin (Bld) [Mass/Vol] 13.6 g/dL 13.0-16.5 [facility] Immature granulocytes/100 WB C Auto (Bld)Ordered By: Renard Burgos on 06-24-2024 Immature granulocytes/100 WBC (Bld) 0.500 % 0.0-0.9 [facility] Comment on above: IG% - Immature Granu locytes (promyelocytes, myelocytes and metamyelocytes) > 1% indicates that a LEFT SHIFT is Present. Lymphocytes Auto (Unsp spec) [#/Vol]Ordered By: Renard Burgos on 06-24-2024 Lymphocytes (Bld) [#/Vol] 1.65 10*3/uL 0.83-4.51 [facility] Lymphocytes/100 WBC Auto (Un sp spec)Ordered By: Renard Burgos on 06-24-2024 Lymphocytes/100 WBC (Bld) 12.8 % Low 19-41 [facility] MCV (mean corpuscular volume ) determinationOrdered By: Renard Burgos on 06-24-2024 MCV (RBC) [Entitic vol] 92.7 fL 80-94 [facility] Mean corpuscular hemoglobin (MCH) determinationOrdered By: Renard Burgos on 06-24-2024 MCH (RBC) [Entitic mass] 30.2 pg 27.0-32.0 [facility] Mean corpuscular hemoglobin concentration (MCHC) determinationOrdered By: Renard Burgos on 06-24-2024 MCHC (RBC) [Mass/Vol] 32.5 g/dL 32-36 [facility] Mean platelet volume determi nationOrdered By: Renard Burgos on 06-24-2024 Platelet mean volume (Bld) [Entitic vol] 11.3 fL 6.2-12.0 [facility] Monocyte percentageOrdered B y: Renard Burgos on 06-24-2024 Monocytes/100 WBC (Bld) 6.4 % 0-10 [facility] Neutrophil percentageOrdered By: Renard Burgos on 06-24-2024 Neutrophils/100 WBC (Bld) 79.0 % High 47-70 [facility] Nucleated red blood cell per centageOrdered By: Renard Burgos on 06-24-2024 Nucleated RBC/100 WBC (Bld) [Ratio] 0 % 0-5 [facility] Platelet countOrdered By: Garrick Bhatt on 06-24-2024 Platelets (Bld) [#/Vol] 171 10*3/uL 150-450 [facility] Potassium measurementOrdered By: Renard Burgos on 06-24-2024 Potassium [Moles/Vol] 4.1 mmol/L 3.5-5.1 [facility] RBC Auto (Bld) [#/Vol]Ordere d By: Renard Burgos on 06-24-2024 RBC (Bld) [#/Vol] 4.51 10*6/uL Low 4.6-6.2 [facility] Serum anion gap measurementO rdered By: Renard Burgos on 06-24-2024 Anion gap [Moles/Vol] 8 mmol/L 5-15 [facility] Serum or plasma calcium gordy urement (mass/volume)Ordered By: Renard Burgos on 06-24-2024 Calcium [Mass/Vol] 8.3 mg/dL Low 8.5-10.1 [facility] Serum or plasma creatinine m easurement (mass/volume)Ordered By: Renard Burgos on 06-24-2024 Creatinine [Mass/Vol] 0.60 mg/dL Low 0.70-1.30 [facility] Comment on above: The validity of the calculated GFR & GFRAA in patients over 70 years has not been determined. Clinical correlation is essential. Serum or plasma urea nitroge n measurement (mass/volume)Ordered By: Renard Burgos on 06-24-2024 Urea nitrogen [Mass/Vol] 15 mg/dL 7-18 [facility] Sodium levelOrdered By: Lamine Burgos on 06-24-2024 Sodium [Moles/Vol] 139 mmol/L 136-145 [facility] White blood cell (WBC) count Ordered By: Renard Burgos on 06-24-2024 WBC (Bld) [#/Vol] 12.9 10*3/uL High 4.4-11.0 [facility] Absolute lymphocyte countOrd ered By: Renard Hensleyrustam on 06-17-2024 Lymphocytes Auto (Unsp spec) [#/Vol] 2.00 10*3/uL 0.83-4.51 [facility] Absolute neutrophil countOrd ered By: Renard Burgos on 06-17-2024 Neutrophils (Bld) [#/Vol] 5.1 10*3/uL 2.0-7.7 [facility] Automated lymphocyte count a s percentage of total leukocytesOrdered By: Renard Burgos on 06-17-2024 Lymphocytes/100 WBC Auto (Unsp spec) 24.5 % 19-41 [facility] Basophil percentageOrdered B y: Renard Burgos on 06-17-2024 Basophils/100 WBC (Bld) 1.1 % High 0-1 [facility] CBC W/Diff, Automatedon 06-01 Absolute Lymph 2.00 X10 3/uL Normal 0.83-4.51 [facility] Comment on above: Order Comment: 109-1 Performed By: #### L 100.0100 ####[facility] [address] [place], [address] Absolute Neut 5.1 X10 3/uL Normal 2.0-7.7 [facility] Comment on above: Order Comment: 109-1 Performed By: #### L 100.0100 ####[facility] [address] [place], [address] Basophils/100 WBC (Bld) 1.1 % High 0-1 [facility] Comment on above: Order Comment: 109-1 Performed By: #### L 100.0100 ####[facility] [address] [place], [address] Eosinophils/100 WBC (Bld) 3.4 % Normal 0-5 [facility] Comment on above: Order Comment: 109-1 Performed By: #### L 100.0100 ####[facility] [address] [place], [address] Erythrocyte distribution width (RBC) [Ratio] 13.3 % Normal 11.6-14.6 [facility] Comment on above: Order Comment: 109-1 Performed By: #### L 100.0100 ####[facility] [address] [place], [address] Hematocrit (Bld) [Volume fraction] 39.3 % Low 40-54 [facility] Comment on above: Order Comment: 109-1 Performed By: #### L 100.0100 ####[facility] [address] [place], [address] Hemoglobin (Bld) [Mass/Vol] 12.8 g/dL Low 13.0-16.5 [facility] Comment on above: Order Comment: 109-1 Performed By: #### L 100.0100 ####[facility] [address] [place], [address] IG% 0.200 Normal 0.0-0.9 [facility] Comment on above: Order Comment: 109-1 Result Comment: IG% - Immature Granulocytes (promyelocytes, myelocytes andmetamyelocytes) > 1% indicates that a LEFT SHIFT is Present. Performed By: #### L 100.0100 ####[facility] [address] [place], [address] Lymphocytes/100 WBC (Bld) 24.5 % Normal 19-41 [facility] Comment on above: Order Comment: 109-1 Performed By: #### L 100.0100 ####[facility] [address] [place], [address] MCH (RBC) [Entitic mass] 29.6 pg Normal 27.0-32.0 [facility] Comment on above: Order Comment: 109-1 Performed By: #### L 100.0100 ####[facility] [address] [place], [address] MCHC (RBC) [Mass/Vol] 32.6 g/dL Normal 32-36 [facility] Comment on above: Order Comment: 109-1 Performed By: #### L 100.0100 ####[facility] [address] [place], [address] MCV (RBC) [Entitic vol] 90.8 fL Normal 80-94 [facility] Comment on above: Order Comment: 109-1 Performed By: #### L 100.0100 ####[facility] [address] [place], [address] Monocytes/100 WBC (Bld) 8.8 % Normal 0-10 [facility] Comment on above: Order Comment: 109-1 Performed By: #### L 100.0100 ####[facility] [address] [place], [address] Neutrophils/100 WBC (Bld) 62.0 % Normal 47-70 [facility] Comment on above: Order Comment: 109-1 Performed By: #### L 100.0100 ####[facility] [address] [place], [address] Nucleated RBC (Bld) [#/Vol] 0 10*3/uL Normal 0-5 [facility] Comment on above: Order Comment: 109-1 Performed By: #### L 100.0100 ####[facility] [address] [place], [address] Platelet mean volume (Bld) [Entitic vol] 10.9 fL Normal 6.2-12.0 [facility] Comment on above: Order Comment: 109-1 Performed By: #### L 100.0100 ####[facility] [address] [place], [address] Platelets (Bld) [#/Vol] 218 10*3/uL Normal 150-450 [facility] Comment on above: Order Comment: 109-1 Performed By: #### L 100.0100 ####[facility] [address] [place], [address] RBC (Bld) [#/Vol] 4.33 10*6/uL Low 4.6-6.2 [facility] Comment on above: Order Comment: 109-1 Performed By: #### L 100.0100 ####[facility] [address] [place], [address] RDW SD 44.0 fl High 35.1-43.9 [facility] Comment on above: Order Comment: 109-1 Performed By: #### L 100.0100 ####[facility] [address] [place], [address] WBC (Bld) [#/Vol] 8.2 10*3/uL Normal 4.4-11.0 [facility] Comment on above: Order Comment: 109-1 Performed By: #### L 100.0100 ####[facility] [address] [place], [address] Eosinophil percentageOrdered By: Renard Burgos on 06-17-2024 Eosinophils/100 WBC (Bld) 3.4 % 0-5 [facility] Erythrocyte distribution wid th ratioOrdered By: Renard Burgos on 06-17-2024 Erythrocyte distribution width (RBC) [Ratio] 13.3 % 11.6-14.6 [facility] Erythrocyte distribution wid th standard deviationOrdered By: Renard Burgos on 06-17-2024 Erythrocyte distribution width (RBC) [Entitic vol] 44.0 fL High 35.1-43.9 [facility] Erythrocyte distribution width (RBC) [Ratio] 44.0 fl High 35.1-43.9 [facility] Hematocrit Auto (Bld) [Volum e fraction]Ordered By: Renard Burgos on 06-17-2024 Hematocrit (Bld) [Volume fraction] 39.3 % Low 40-54 [facility] Hemoglobin measurementOrdere d By: Renard Burgos on 06-17-2024 Hemoglobin (Bld) [Mass/Vol] 12.8 g/dL Low 13.0-16.5 [facility] Immature granulocytes/100 WB C Auto (Bld)Ordered By: Renard Burgos on 06-17-2024 Immature granulocytes/100 WBC (Bld) 0.200 % 0.0-0.9 [facility] Comment on above: IG% - Immature Granu locytes (promyelocytes, myelocytes and metamyelocytes) > 1% indicates that a LEFT SHIFT is Present. Lymphocytes Auto (Unsp spec) [#/Vol]Ordered By: Renard Burgos on 06-17-2024 Lymphocytes (Bld) [#/Vol] 2.00 10*3/uL 0.83-4.51 [facility] Lymphocytes/100 WBC Auto (Un sp spec)Ordered By: Renard Burgos on 06-17-2024 Lymphocytes/100 WBC (Bld) 24.5 % 19-41 [facility] MCV (mean corpuscular volume ) determinationOrdered By: Renard Burgos on 06-17-2024 MCV (RBC) [Entitic vol] 90.8 fL 80-94 [facility] Mean corpuscular hemoglobin (MCH) determinationOrdered By: Renard Burgos on 06-17-2024 MCH (RBC) [Entitic mass] 29.6 pg 27.0-32.0 [facility] Mean corpuscular hemoglobin concentration (MCHC) determinationOrdered By: Renard Burgos on 06-17-2024 MCHC (RBC) [Mass/Vol] 32.6 g/dL 32-36 [facility] Mean platelet volume determi nationOrdered By: Renard Burgos on 06-17-2024 Platelet mean volume (Bld) [Entitic vol] 10.9 fL 6.2-12.0 [facility] Monocyte percentageOrdered B y: Renard Burgos on 06-17-2024 Monocytes/100 WBC (Bld) 8.8 % 0-10 [facility] Neutrophil percentageOrdered By: Renard Burgos on 06-17-2024 Neutrophils/100 WBC (Bld) 62.0 % 47-70 [facility] Nucleated red blood cell per centageOrdered By: Renard Burgos on 06-17-2024 Nucleated RBC/100 WBC (Bld) [Ratio] 0 % 0-5 [facility] Platelet countOrdered By: Garrick Bhatt on 06-17-2024 Platelets (Bld) [#/Vol] 218 10*3/uL 150-450 [facility] RBC Auto (Bld) [#/Vol]Ordere d By: Renard Burgos on 06-17-2024 RBC (Bld) [#/Vol] 4.33 10*6/uL Low 4.6-6.2 [facility] White blood cell (WBC) count Ordered By: Renard Burgos on 06-17-2024 WBC (Bld) [#/Vol] 8.2 10*3/uL 4.4-11.0 [facility] Absolute lymphocyte countOrd ered By: Renard Burgos on 06-10-2024 Lymphocytes Auto (Unsp spec) [#/Vol] 2.38 10*3/uL 0.83-4.51 [facility] Absolute neutrophil countOrd ered By: Renard Burgos on 06-10-2024 Neutrophils (Bld) [#/Vol] 5.3 10*3/uL 2.0-7.7 [facility] Automated lymphocyte count a s percentage of total leukocytesOrdered By: Renard Burgos on 06-10-2024 Lymphocytes/100 WBC Auto (Unsp spec) 27.5 % 19-41 [facility] Basophil percentageOrdered B y: Renard Burgos on 06-10-2024 Basophils/100 WBC (Bld) 0.7 % 0-1 [facility] CBC W/Diff, Automatedon 06-01 Absolute Lymph 2.38 X10 3/uL Normal 0.83-4.51 [facility] Comment on above: Order Comment: 109.1 Performed By: #### L 100.0100 ####[facility] [address] [place], [address] Absolute Neut 5.3 X10 3/uL Normal 2.0-7.7 [facility] Comment on above: Order Comment: 109.1 Performed By: #### L 100.0100 ####[facility] [address] [place], [address] Basophils/100 WBC (Bld) 0.7 % Normal 0-1 [facility] Comment on above: Order Comment: 109.1 Performed By: #### L 100.0100 ####[facility] [address] [place], [address] Eosinophils/100 WBC (Bld) 0.7 % Normal 0-5 [facility] Comment on above: Order Comment: 109.1 Performed By: #### L 100.0100 ####[facility] [address] [place], [address] Erythrocyte distribution width (RBC) [Ratio] 13.1 % Normal 11.6-14.6 [facility] Comment on above: Order Comment: 109.1 Performed By: #### L 100.0100 ####[facility] [address] [place], [address] Hematocrit (Bld) [Volume fraction] 41.1 % Normal 40-54 [facility] Comment on above: Order Comment: 109.1 Performed By: #### L 100.0100 ####[facility] [address] [place], [address] Hemoglobin (Bld) [Mass/Vol] 13.5 g/dL Normal 13.0-16.5 [facility] Comment on above: Order Comment: 109.1 Performed By: #### L 100.0100 ####[facility] [address] [place], [address] IG% 0.500 Normal 0.0-0.9 [facility] Comment on above: Order Comment: 109.1 Result Comment: IG% - Immature Granulocytes (promyelocytes, myelocytes andmetamyelocytes) > 1% indicates that a LEFT SHIFT is Present. Performed By: #### L 100.0100 ####[facility] [address] [place], [address] Lymphocytes/100 WBC (Bld) 27.5 % Normal 19-41 [facility] Comment on above: Order Comment: 109.1 Performed By: #### L 100.0100 ####[facility] [address] [place], [address] MCH (RBC) [Entitic mass] 30.1 pg Normal 27.0-32.0 [facility] Comment on above: Order Comment: 109.1 Performed By: #### L 100.0100 ####[facility] [address] [place], [address] MCHC (RBC) [Mass/Vol] 32.8 g/dL Normal 32-36 [facility] Comment on above: Order Comment: 109.1 Performed By: #### L 100.0100 ####[facility] [address] [place], [address] MCV (RBC) [Entitic vol] 91.7 fL Normal 80-94 [facility] Comment on above: Order Comment: 109.1 Performed By: #### L 100.0100 ####[facility] [address] [place], [address] Monocytes/100 WBC (Bld) 9.6 % Normal 0-10 [facility] Comment on above: Order Comment: 109.1 Performed By: #### L 100.0100 ####[facility] [address] [place], [address] Neutrophils/100 WBC (Bld) 61.0 % Normal 47-70 [facility] Comment on above: Order Comment: 109.1 Performed By: #### L 100.0100 ####[facility] [address] [place], [address] Nucleated RBC (Bld) [#/Vol] 0 10*3/uL Normal 0-5 [facility] Comment on above: Order Comment: 109.1 Performed By: #### L 100.0100 ####[facility] [address] [place], [address] Platelet mean volume (Bld) [Entitic vol] 11.0 fL Normal 6.2-12.0 [facility] Comment on above: Order Comment: 109.1 Performed By: #### L 100.0100 ####[facility] [address] [place], [address] Platelets (Bld) [#/Vol] 261 10*3/uL Normal 150-450 [facility] Comment on above: Order Comment: 109.1 Performed By: #### L 100.0100 ####[facility] [address] [place], [address] RBC (Bld) [#/Vol] 4.48 10*6/uL Low 4.6-6.2 [facility] Comment on above: Order Comment: 109.1 Performed By: #### L 100.0100 ####[facility] [address] [place], [address] RDW SD 43.2 fl Normal 35.1-43.9 [facility] Comment on above: Order Comment: 109.1 Performed By: #### L 100.0100 ####[facility] [address] [place], [address] WBC (Bld) [#/Vol] 8.6 10*3/uL Normal 4.4-11.0 [facility] Comment on above: Order Comment: 109.1 Performed By: #### L 100.0100 ####[facility] [address] [place], [address] Eosinophil percentageOrdered By: Renard Burgos on 06-10-2024 Eosinophils/100 WBC (Bld) 0.7 % 0-5 [facility] Erythrocyte distribution wid th ratioOrdered By: Renard Burgos on 06-10-2024 Erythrocyte distribution width (RBC) [Ratio] 13.1 % 11.6-14.6 [facility] Erythrocyte distribution wid th standard deviationOrdered By: Renard Burgos on 06-10-2024 Erythrocyte distribution width (RBC) [Entitic vol] 43.2 fL 35.1-43.9 [facility] Erythrocyte distribution width (RBC) [Ratio] 43.2 fl 35.1-43.9 [facility] Hematocrit Auto (Bld) [Volum e fraction]Ordered By: Renard Burgos on 06-10-2024 Hematocrit (Bld) [Volume fraction] 41.1 % 40-54 [facility] Hemoglobin measurementOrdere d By: Renard Burgos on 06-10-2024 Hemoglobin (Bld) [Mass/Vol] 13.5 g/dL 13.0-16.5 [facility] Immature granulocytes/100 WB C Auto (Bld)Ordered By: Renard Burgos on 06-10-2024 Immature granulocytes/100 WBC (Bld) 0.500 % 0.0-0.9 [facility] Comment on above: IG% - Immature Granu locytes (promyelocytes, myelocytes and metamyelocytes) > 1% indicates that a LEFT SHIFT is Present. Lymphocytes Auto (Unsp spec) [#/Vol]Ordered By: Renard Burgos on 06-10-2024 Lymphocytes (Bld) [#/Vol] 2.38 10*3/uL 0.83-4.51 [facility] Lymphocytes/100 WBC Auto (Un sp spec)Ordered By: Renard Burgos on 06-10-2024 Lymphocytes/100 WBC (Bld) 27.5 % 19-41 [facility] MCV (mean corpuscular volume ) determinationOrdered By: Renard Burgos on 06-10-2024 MCV (RBC) [Entitic vol] 91.7 fL 80-94 [facility] Mean corpuscular hemoglobin (MCH) determinationOrdered By: Renard Burgos on 06-10-2024 MCH (RBC) [Entitic mass] 30.1 pg 27.0-32.0 [facility] Mean corpuscular hemoglobin concentration (MCHC) determinationOrdered By: Renard Burgos on 06-10-2024 MCHC (RBC) [Mass/Vol] 32.8 g/dL 32-36 [facility] Mean platelet volume determi nationOrdered By: Renard Burgos on 02-10-2025 Platelet mean volume (Bld) [Entitic vol] 11.0 fL 6.2-12.0 [facility] Monocyte percentageOrdered B y: Renard Burgos on 06-10-2024 Monocytes/100 WBC (Bld) 9.6 % 0-10 [facility] Neutrophil percentageOrdered By: Renard Burgos on 06-10-2024 Neutrophils/100 WBC (Bld) 61.0 % 47-70 [facility] Nucleated red blood cell per centageOrdered By: Renard Burgos on 06-10-2024 Nucleated RBC/100 WBC (Bld) [Ratio] 0 % 0-5 [facility] Platelet countOrdered By: Garrick Bhatt on 06-10-2024 Platelets (Bld) [#/Vol] 261 10*3/uL 150-450 [facility] RBC Auto (Bld) [#/Vol]Ordere d By: Renard Burgos on 06-10-2024 RBC (Bld) [#/Vol] 4.48 10*6/uL Low 4.6-6.2 [facility] Urine Cultureon 06-10-2024 URC Normal [facility] Comment on above: Performed By: #### M 100.2200, L400.0001 ####[facility] [address] [place], [place], [id number] White blood cell (WBC) count Ordered By: Renard Burgos on 06-10-2024 WBC (Bld) [#/Vol] 8.6 10*3/uL 4.4-11.0 [facility] Bilirubin Test strip Ql (U)O rdered By: Renard Burgos on 06-07-2024 Bilirubin Ql (U) Negative Negative [facility] CBC-Complete Blood Cnt No Di ffon 06-07-2024 Erythrocyte distribution width (RBC) [Ratio] 13.0 % Normal 11.6-14.6 [facility] Comment on above: Order Comment: 109-1 Performed By: #### L 100.0500 ####[facility] [address] [place], [address](354) Hematocrit (Bld) [Volume fraction] 39.3 % Low 40-54 [facility] Comment on above: Order Comment: 109-1 Performed By: #### L 100.0500 ####[facility] [address] [place], [address] Hemoglobin (Bld) [Mass/Vol] 13.0 g/dL Normal 13.0-16.5 [facility] Comment on above: Order Comment: 109-1 Performed By: #### L 100.0500 ####[facility] [address] [place], [address] MCH (RBC) [Entitic mass] 30.2 pg Normal 27.0-32.0 [facility] Comment on above: Order Comment: 109-1 Performed By: #### L 100.0500 ####[facility] [address] [place], [address] MCHC (RBC) [Mass/Vol] 33.1 g/dL Normal 32-36 [facility] Comment on above: Order Comment: 109-1 Performed By: #### L 100.0500 ####[facility] [address] [place], [address] MCV (RBC) [Entitic vol] 91.2 fL Normal 80-94 [facility] Comment on above: Order Comment: 109-1 Performed By: #### L 100.0500 ####[facility] [address] [place], [address] Platelet mean volume (Bld) [Entitic vol] 10.8 fL Normal 6.2-12.0 [facility] Comment on above: Order Comment: 109-1 Performed By: #### L 100.0500 ####[facility] [address] [place], [address] Platelets (Bld) [#/Vol] 251 10*3/uL Normal 150-450 [facility] Comment on above: Order Comment: 109-1 Performed By: #### L 100.0500 ####[facility] [address] [place], [address] RBC (Bld) [#/Vol] 4.31 10*6/uL Low 4.6-6.2 [facility] Comment on above: Order Comment: 109-1 Performed By: #### L 100.0500 ####[facility] [address] [place], [address] RDW SD 43.7 fl Normal 35.1-43.9 [facility] Comment on above: Order Comment: 109-1 Performed By: #### L 100.0500 ####[facility] [address] [place], [address] WBC (Bld) [#/Vol] 9.9 10*3/uL Normal 4.4-11.0 [facility] Comment on above: Order Comment: 109-1 Performed By: #### L 100.0500 ####[facility] [address] [place], [address] Epithelial cells.squamous LM Ql (Urine sed)Ordered By: Renard Burgos on 06-07-2024 Epithelial cells.squamous LM.HPF (Urine sed) [#/Area] 0 /[HPF] 0-5 [facility] Erythrocyte distribution wid th ratioOrdered By: Renard Burgos on 06-07-2024 Erythrocyte distribution width (RBC) [Ratio] 13.0 % 11.6-14.6 [facility] Erythrocyte distribution wid th standard deviationOrdered By: Renard Burgos on 06-07-2024 Erythrocyte distribution width (RBC) [Entitic vol] 43.7 fL 35.1-43.9 [facility] Erythrocyte distribution width (RBC) [Ratio] 43.7 fl 35.1-43.9 [facility] Glucose Ql (U)Ordered By: Garrick Bhatt on 06-07-2024 Urine Glucose (UA) Normal mg/dl Normal [facility] Hematocrit Auto (Bld) [Volum e fraction]Ordered By: Renard Burgos on 06-07-2024 Hematocrit (Bld) [Volume fraction] 39.3 % Low 40-54 [facility] Hemoglobin measurementOrdere d By: Renard Burgos on 06-07-2024 Hemoglobin (Bld) [Mass/Vol] 13.0 g/dL 13.0-16.5 [facility] Ketones Test strip Ql (U)Ord ered By: Renard Burgos on 06-07-2024 Ketones Ql (U) Negative Negative [facility] MCV (mean corpuscular volume ) determinationOrdered By: Renard Burgos on 06-07-2024 MCV (RBC) [Entitic vol] 91.2 fL 80-94 [facility] Mean corpuscular hemoglobin (MCH) determinationOrdered By: Renard Burgos on 06-07-2024 MCH (RBC) [Entitic mass] 30.2 pg 27.0-32.0 [facility] Mean corpuscular hemoglobin concentration (MCHC) determinationOrdered By: Renard Burgos on 06-07-2024 MCHC (RBC) [Mass/Vol] 33.1 g/dL 32-36 [facility] Mean platelet volume determi nationOrdered By: Renard Burgos on 06-07-2024 Platelet mean volume (Bld) [Entitic vol] 10.8 fL 6.2-12.0 [facility] Microscopic analysis of urin e for red blood cells (RBC)Ordered By: Renard Burgos on 06-07-2024 Microscopic analysis of urine for red blood cells (RBC) 0 SEEN /hpf 0-5 [facility] Urine RBC 0 SEEN /hpf 0-5 [facility] Mucus LM Ql (Urine sed)Order ed By: Renard Burgos on 06-07-2024 Mucus Ql (Urine sed) 0 SEEN /hpf [facility] Nitrite Test strip Ql (U)Ord ered By: Renard Burgos on 06-07-2024 Nitrite Ql (U) Negative Negative [facility] Platelet countOrdered By: Garrick Bhatt on 06-07-2024 Platelets (Bld) [#/Vol] 251 10*3/uL 150-450 [facility] Protein Test strip Ql (U)Ord ered By: Renard Burgos on 06-07-2024 Protein Ql (U) 15 mg/dl High Negative [facility] RBC Auto (Bld) [#/Vol]Ordere d By: Renard Burgos on 06-07-2024 RBC (Bld) [#/Vol] 4.31 10*6/uL Low 4.6-6.2 [facility] Squamous epithelial cells de tection in urine sediment by light microscopyOrdered By: Renard Burgos on 06-07-2024 Epithelial cells.squamous LM Ql (Urine sed) 0-5 SEEN /hpf 0-5 [facility] Urinalysis, Completeon 06-07 Mucus Ql (Urine sed) 0 SEEN Normal [facility] Comment on above: Order Comment: CLEAN CATCH Performed By: #### M 100.2200, L400.0001 ####[facility] [address] [place], [address] Urine blood detectionOrdered By: Renard Burgos on 06-07-2024 Urine Occult Blood Negative Negative [facility] Urine clarityOrdered By: Lyubov Burgos on 06-07-2024 Clarity (U) Clear Clear [facility] Urine color determinationOrd ered By: Renard Burgos on 06-07-2024 Color (U) Yellow Yellow [facility] Urine cultureOrdered By: Lyubov Burgos on 06-07-2024 Bacteria identified Cx Nom (U) Pseudomonas aeruginosa Abnormal [facility] Bacteria identified Cx Nom (U) Pseudomonas aeruginosa Abnormal [facility] Urine glucose detectionOrder ed By: Renard Burgos on 06-07-2024 Glucose Ql (U) Normal mg/dl Normal [facility] Urine leukocyte esterase det ection by dipstickOrdered By: Renard Burgos on 06-07-2024 Leukocyte esterase Test strip Ql (U) Negative Negative [facility] Urine pHOrdered By: Renard ocampo on 06-07-2024 pH (U) 7.0 [pH] 5.0 - 8.0 [facility] Urine sediment bacteria coun t by microscopy (number/high power field)Ordered By: Renard Burgos on 06-07-2024 Bacteria LM.HPF (Urine sed) [#/Area] 2 /[HPF] None Seen [facility] Urine sediment yeast count b y microscopy (number/high powered field)Ordered By: Renard Burgos on 06-07-2024 Yeast LM.HPF (Urine sed) [#/Area] 1 /[HPF] None Seen [facility] Urine specific gravity measu rementOrdered By: Renard Burgos on 06-07-2024 Specific gravity (U) [Rel density] 1.010 1.002-1.030 [facility] Urine urobilinogen measureme ntOrdered By: Renard Burgos on 06-07-2024 Urobilinogen Ql (U) 1 mg/dl High Normal [facility] Urobilinogen Ql (U)Ordered B y: Renard Burgos on 06-07-2024 Urobilinogen (U) [Mass/Vol] 1 mg/dL High Normal [facility] White blood cell (WBC) count Ordered By: Renard Burgos on 06-07-2024 WBC (Bld) [#/Vol] 9.9 10*3/uL 4.4-11.0 [facility] White blood cell countOrdere d By: Renard Burgos on 06-07-2024 Urine WBC 0-5 SEEN /hpf 0-5 [facility] White blood cell count 0-5 SEEN /hpf 0-5 [facility] Yeast LM.HPF (Urine sed) [#/ Area]Ordered By: Renard Burgos on 06-07-2024 Urine Yeast 1+ /hpf None Seen [facility] Absolute lymphocyte countOrd ered By: Renard Burgos on 06-03-2024 Lymphocytes Auto (Unsp spec) [#/Vol] 1.94 10*3/uL 0.83-4.51 [facility] Absolute neutrophil countOrd ered By: Renard Burgos on 06-03-2024 Neutrophils (Bld) [#/Vol] 9.5 10*3/uL High 2.0-7.7 [facility] Automated lymphocyte count a s percentage of total leukocytesOrdered By: Renard Burgos on 06-03-2024 Lymphocytes/100 WBC Auto (Unsp spec) 15.7 % Low 19-41 [facility] Basophil percentageOrdered B y: Renard Burgos on 06-03-2024 Basophils/100 WBC (Bld) 0.5 % 0-1 [facility] CBC W/Diff, Automatedon 02-0 -2024 Absolute Lymph 1.94 X10 3/uL Normal 0.83-4.51 [facility] Comment on above: Order Comment: 109-1 Performed By: #### L 100.0100 ####[facility] [address] [place], [address] Absolute Neut 9.5 X10 3/uL High 2.0-7.7 [facility] Comment on above: Order Comment: 109-1 Performed By: #### L 100.0100 ####[facility] [address] [place], [address] Basophils/100 WBC (Bld) 0.5 % Normal 0-1 [facility] Comment on above: Order Comment: 109-1 Performed By: #### L 100.0100 ####[facility] [address] [place], [address] Eosinophils/100 WBC (Bld) 0.3 % Normal 0-5 [facility] Comment on above: Order Comment: 109-1 Performed By: #### L 100.0100 ####[facility] [address] [place], [address] Erythrocyte distribution width (RBC) [Ratio] 13.0 % Normal 11.6-14.6 [facility] Comment on above: Order Comment: 109-1 Performed By: #### L 100.0100 ####[facility] [address] [place], [address] Hematocrit (Bld) [Volume fraction] 40.1 % Normal 40-54 [facility] Comment on above: Order Comment: 109-1 Performed By: #### L 100.0100 ####[facility] [address] [place], [address] Hemoglobin (Bld) [Mass/Vol] 13.2 g/dL Normal 13.0-16.5 [facility] Comment on above: Order Comment: 109-1 Performed By: #### L 100.0100 ####[facility] [address] [place], [address] IG% 0.400 Normal 0.0-0.9 [facility] Comment on above: Order Comment: 109-1 Result Comment: IG% - Immature Granulocytes (promyelocytes, myelocytes andmetamyelocytes) > 1% indicates that a LEFT SHIFT is Present. Performed By: #### L 100.0100 ####[facility] [address] [place], [address] Lymphocytes/100 WBC (Bld) 15.7 % Low 19-41 [facility] Comment on above: Order Comment: 109-1 Performed By: #### L 100.0100 ####[facility] [address] [place], [address] MCH (RBC) [Entitic mass] 30.1 pg Normal 27.0-32.0 [facility] Comment on above: Order Comment: 109-1 Performed By: #### L 100.0100 ####[facility] [address] [place], [address] MCHC (RBC) [Mass/Vol] 32.9 g/dL Normal 32-36 [facility] Comment on above: Order Comment: 109-1 Performed By: #### L 100.0100 ####[facility] [address] [place], [address] MCV (RBC) [Entitic vol] 91.3 fL Normal 80-94 [facility] Comment on above: Order Comment: 109-1 Performed By: #### L 100.0100 ####[facility] [address] [place], [address] Monocytes/100 WBC (Bld) 6.6 % Normal 0-10 [facility] Comment on above: Order Comment: 109-1 Performed By: #### L 100.0100 ####[facility] [address] [place], [address] Neutrophils/100 WBC (Bld) 76.5 % High 47-70 [facility] Comment on above: Order Comment: 109-1 Performed By: #### L 100.0100 ####[facility] [address] [place], [address] Nucleated RBC (Bld) [#/Vol] 0 10*3/uL Normal 0-5 [facility] Comment on above: Order Comment: 109-1 Performed By: #### L 100.0100 ####[facility] [address] [place], [address] Platelet mean volume (Bld) [Entitic vol] 11.1 fL Normal 6.2-12.0 [facility] Comment on above: Order Comment: 109-1 Performed By: #### L 100.0100 ####[facility] [address] [place], [address] Platelets (Bld) [#/Vol] 249 10*3/uL Normal 150-450 [facility] Comment on above: Order Comment: 109-1 Performed By: #### L 100.0100 ####[facility] [address] [place], [address] RBC (Bld) [#/Vol] 4.39 10*6/uL Low 4.6-6.2 [facility] Comment on above: Order Comment: 109-1 Performed By: #### L 100.0100 ####[facility] [address] [place], [address] RDW SD 42.8 fl Normal 35.1-43.9 [facility] Comment on above: Order Comment: 109-1 Performed By: #### L 100.0100 ####[facility] [address] [place], [address] WBC (Bld) [#/Vol] 12.4 10*3/uL High 4.4-11.0 [facility] Comment on above: Order Comment: 109-1 Performed By: #### L 100.0100 ####[facility] [address] [place], [address] Eosinophil percentageOrdered By: Renard Burgos on 06-03-2024 Eosinophils/100 WBC (Bld) 0.3 % 0-5 [facility] Erythrocyte distribution wid th ratioOrdered By: Renard Burgos on 06-03-2024 Erythrocyte distribution width (RBC) [Ratio] 13.0 % 11.6-14.6 [facility] Erythrocyte distribution wid th standard deviationOrdered By: Renard Burgos on 06-03-2024 Erythrocyte distribution width (RBC) [Entitic vol] 42.8 fL 35.1-43.9 [facility] Erythrocyte distribution width (RBC) [Ratio] 42.8 fl 35.1-43.9 [facility] Hematocrit Auto (Bld) [Volum e fraction]Ordered By: Renard Burgos on 06-03-2024 Hematocrit (Bld) [Volume fraction] 40.1 % 40-54 [facility] Hemoglobin measurementOrdere d By: Renard Burgos on 06-03-2024 Hemoglobin (Bld) [Mass/Vol] 13.2 g/dL 13.0-16.5 [facility] Immature granulocytes/100 WB C Auto (Bld)Ordered By: Renard Burgos on 06-03-2024 Immature granulocytes/100 WBC (Bld) 0.400 % 0.0-0.9 [facility] Comment on above: IG% - Immature Granu locytes (promyelocytes, myelocytes and metamyelocytes) > 1% indicates that a LEFT SHIFT is Present. Lymphocytes Auto (Unsp spec) [#/Vol]Ordered By: Renard Burgos on 06-03-2024 Lymphocytes (Bld) [#/Vol] 1.94 10*3/uL 0.83-4.51 [facility] Lymphocytes/100 WBC Auto (Un sp spec)Ordered By: Renard Burgos on 06-03-2024 Lymphocytes/100 WBC (Bld) 15.7 % Low 19-41 [facility] MCV (mean corpuscular volume ) determinationOrdered By: Renard Burgos on 06-03-2024 MCV (RBC) [Entitic vol] 91.3 fL 80-94 [facility] Mean corpuscular hemoglobin (MCH) determinationOrdered By: Renard Burgos on 06-03-2024 MCH (RBC) [Entitic mass] 30.1 pg 27.0-32.0 [facility] Mean corpuscular hemoglobin concentration (MCHC) determinationOrdered By: Renard Burgos on 06-03-2024 MCHC (RBC) [Mass/Vol] 32.9 g/dL 32-36 [facility] Mean platelet volume determi nationOrdered By: Renard Burgos on 06-03-2024 Platelet mean volume (Bld) [Entitic vol] 11.1 fL 6.2-12.0 [facility] Monocyte percentageOrdered B y: Renard Burgos on 06-03-2024 Monocytes/100 WBC (Bld) 6.6 % 0-10 [facility] Neutrophil percentageOrdered By: Renard Burgos on 06-03-2024 Neutrophils/100 WBC (Bld) 76.5 % High 47-70 [facility] Nucleated red blood cell per centageOrdered By: Renard Burgos on 06-03-2024 Nucleated RBC/100 WBC (Bld) [Ratio] 0 % 0-5 [facility] Platelet countOrdered By: Garrick Bhatt on 06-03-2024 Platelets (Bld) [#/Vol] 249 10*3/uL 150-450 [facility] RBC Auto (Bld) [#/Vol]Ordere d By: Renard Burgos on 06-03-2024 RBC (Bld) [#/Vol] 4.39 10*6/uL Low 4.6-6.2 [facility] White blood cell (WBC) count Ordered By: Renard Burgos on 06-03-2024 WBC (Bld) [#/Vol] 12.4 10*3/uL High 4.4-11.0 [facility] Absolute lymphocyte countOrd ered By: Renard Burgos on 05-27-2024 Lymphocytes Auto (Unsp spec) [#/Vol] 1.81 10*3/uL 0.83-4.51 [facility] Absolute neutrophil countOrd ered By: Renard Burgos on 05-27-2024 Neutrophils (Bld) [#/Vol] 5.0 10*3/uL 2.0-7.7 [facility] Automated lymphocyte count a s percentage of total leukocytesOrdered By: Renard Burgos on 05-27-2024 Lymphocytes/100 WBC Auto (Unsp spec) 24.4 % 19-41 [facility] Basophil percentageOrdered B y: Renard Burgos on 05-27-2024 Basophils/100 WBC (Bld) 0.5 % 0-1 [facility] CBC W/Diff, Automatedon 05-02 Absolute Lymph 1.81 X10 3/uL Normal 0.83-4.51 [facility] Comment on above: Order Comment: 109.1 Performed By: #### L 100.0100 ####[facility] [address] [place], [address] Absolute Neut 5.0 X10 3/uL Normal 2.0-7.7 [facility] Comment on above: Order Comment: 109.1 Performed By: #### L 100.0100 ####[facility] [address] [place], [address] Basophils/100 WBC (Bld) 0.5 % Normal 0-1 [facility] Comment on above: Order Comment: 109.1 Performed By: #### L 100.0100 ####[facility] [address] [place], [address] Eosinophils/100 WBC (Bld) 0.5 % Normal 0-5 [facility] Comment on above: Order Comment: 109.1 Performed By: #### L 100.0100 ####[facility] [address] [place], [address] Erythrocyte distribution width (RBC) [Ratio] 12.8 % Normal 11.6-14.6 [facility] Comment on above: Order Comment: 109.1 Performed By: #### L 100.0100 ####[facility] [address] [place], [address] Hematocrit (Bld) [Volume fraction] 39.8 % Low 40-54 [facility] Comment on above: Order Comment: 109.1 Performed By: #### L 100.0100 ####[facility] [address] [place], [address] Hemoglobin (Bld) [Mass/Vol] 13.2 g/dL Normal 13.0-16.5 [facility] Comment on above: Order Comment: 109.1 Performed By: #### L 100.0100 ####[facility] [address] [place], [address] IG% 0.400 Normal 0.0-0.9 [facility] Comment on above: Order Comment: 109.1 Result Comment: IG% - Immature Granulocytes (promyelocytes, myelocytes andmetamyelocytes) > 1% indicates that a LEFT SHIFT is Present. Performed By: #### L 100.0100 ####[facility] [address] [place], [address] Lymphocytes/100 WBC (Bld) 24.4 % Normal 19-41 [facility] Comment on above: Order Comment: 109.1 Performed By: #### L 100.0100 ####[facility] [address] [place], [address] MCH (RBC) [Entitic mass] 30.2 pg Normal 27.0-32.0 [facility] Comment on above: Order Comment: 109.1 Performed By: #### L 100.0100 ####[facility] [address] [place], [address] MCHC (RBC) [Mass/Vol] 33.2 g/dL Normal 32-36 [facility] Comment on above: Order Comment: 109.1 Performed By: #### L 100.0100 ####[facility] [address] [place], [address] MCV (RBC) [Entitic vol] 91.1 fL Normal 80-94 [facility] Comment on above: Order Comment: 109.1 Performed By: #### L 100.0100 ####[facility] [address] [place], [address] Monocytes/100 WBC (Bld) 7.0 % Normal 0-10 [facility] Comment on above: Order Comment: 109.1 Performed By: #### L 100.0100 ####[facility] [address] [place], [address] Neutrophils/100 WBC (Bld) 67.2 % Normal 47-70 [facility] Comment on above: Order Comment: 109.1 Performed By: #### L 100.0100 ####[facility] [address] [place], [address] Nucleated RBC (Bld) [#/Vol] 0 10*3/uL Normal 0-5 [facility] Comment on above: Order Comment: 109.1 Performed By: #### L 100.0100 ####[facility] [address] [place], [address] Platelet mean volume (Bld) [Entitic vol] 10.3 fL Normal 6.2-12.0 [facility] Comment on above: Order Comment: 109.1 Performed By: #### L 100.0100 ####[facility] [address] [place], [address] Platelets (Bld) [#/Vol] 239 10*3/uL Normal 150-450 [facility] Comment on above: Order Comment: 109.1 Performed By: #### L 100.0100 ####[facility] [address] [place], [address] RBC (Bld) [#/Vol] 4.37 10*6/uL Low 4.6-6.2 [facility] Comment on above: Order Comment: 109.1 Performed By: #### L 100.0100 ####[facility] [address] [place], [address] RDW SD 42.5 fl Normal 35.1-43.9 [facility] Comment on above: Order Comment: 109.1 Performed By: #### L 100.0100 ####[facility] [address] [place], [address] WBC (Bld) [#/Vol] 7.4 10*3/uL Normal 4.4-11.0 [facility] Comment on above: Order Comment: 109.1 Performed By: #### L 100.0100 ####[facility] [address] [place], [address] Eosinophil percentageOrdered By: Renard Burgos on 05-27-2024 Eosinophils/100 WBC (Bld) 0.5 % 0-5 [facility] Erythrocyte distribution wid th ratioOrdered By: Renard Burgos on 05-27-2024 Erythrocyte distribution width (RBC) [Ratio] 12.8 % 11.6-14.6 [facility] Erythrocyte distribution wid th standard deviationOrdered By: Renard Burgos on 05-27-2024 Erythrocyte distribution width (RBC) [Entitic vol] 42.5 fL 35.1-43.9 [facility] Erythrocyte distribution width (RBC) [Ratio] 42.5 fl 35.1-43.9 [facility] Hematocrit Auto (Bld) [Volum e fraction]Ordered By: Renard Burgos on 05-27-2024 Hematocrit (Bld) [Volume fraction] 39.8 % Low 40-54 [facility] Hemoglobin measurementOrdere d By: Renard Burgos on 05-27-2024 Hemoglobin (Bld) [Mass/Vol] 13.2 g/dL 13.0-16.5 [facility] Immature granulocytes/100 WB C Auto (Bld)Ordered By: Renard Burgos on 05-27-2024 Immature granulocytes/100 WBC (Bld) 0.400 % 0.0-0.9 [facility] Comment on above: IG% - Immature Granu locytes (promyelocytes, myelocytes and metamyelocytes) > 1% indicates that a LEFT SHIFT is Present. Lymphocytes Auto (Unsp spec) [#/Vol]Ordered By: Renard Burgos on 05-27-2024 Lymphocytes (Bld) [#/Vol] 1.81 10*3/uL 0.83-4.51 [facility] Lymphocytes/100 WBC Auto (Un sp spec)Ordered By: Renard Burgos on 05-27-2024 Lymphocytes/100 WBC (Bld) 24.4 % 19-41 [facility] MCV (mean corpuscular volume ) determinationOrdered By: Renard Burgos on 05-27-2024 MCV (RBC) [Entitic vol] 91.1 fL 80-94 [facility] Mean corpuscular hemoglobin (MCH) determinationOrdered By: Renard Burgos on 05-27-2024 MCH (RBC) [Entitic mass] 30.2 pg 27.0-32.0 [facility] Mean corpuscular hemoglobin concentration (MCHC) determinationOrdered By: Renard Burgos on 05-27-2024 MCHC (RBC) [Mass/Vol] 33.2 g/dL 32-36 [facility] Mean platelet volume determi nationOrdered By: Renard Burgos on 05-27-2024 Platelet mean volume (Bld) [Entitic vol] 10.3 fL 6.2-12.0 [facility] Monocyte percentageOrdered B y: Renard Burgos on 05-27-2024 Monocytes/100 WBC (Bld) 7.0 % 0-10 [facility] Neutrophil percentageOrdered By: Renard Burgos on 05-27-2024 Neutrophils/100 WBC (Bld) 67.2 % 47-70 [facility] Nucleated red blood cell per centageOrdered By: Renard Burgos on 05-27-2024 Nucleated RBC/100 WBC (Bld) [Ratio] 0 % 0-5 [facility] Platelet countOrdered By: Garrick Bhatt on 05-27-2024 Platelets (Bld) [#/Vol] 239 10*3/uL 150-450 [facility] RBC Auto (Bld) [#/Vol]Ordere d By: Renard Burgos on 05-27-2024 RBC (Bld) [#/Vol] 4.37 10*6/uL Low 4.6-6.2 [facility] White blood cell (WBC) count Ordered By: Renard Burgos on 05-27-2024 WBC (Bld) [#/Vol] 7.4 10*3/uL 4.4-11.0 [facility] Absolute lymphocyte countOrd ered By: Renard Burgos on 05-20-2024 Lymphocytes Auto (Unsp spec) [#/Vol] 1.73 10*3/uL 0.83-4.51 [facility] Absolute neutrophil countOrd ered By: Renard Burgos on 05-20-2024 Neutrophils (Bld) [#/Vol] 7.0 10*3/uL 2.0-7.7 [facility] Automated blood erythrocyte countOrdered By: Renard Burgos on 05-20-2024 RBC (Bld) [#/Vol] 4.74 10*6/uL Normal 4.6-6.2 [facility] Comment on above: Order Comment: 109-1 Performed By: #### L 100.0100 ####[facility] [address] [place], [place], [address] Automated blood hematocrit ( percentage)Ordered By: Renard Burgos on 05-20-2024 Hematocrit (Bld) [Volume fraction] 43.6 % Normal 40-54 [facility] Comment on above: Order Comment: 109-1 Performed By: #### L 100.0100 ####[facility] [address] [place], [address] Automated lymphocyte count a s percentage of total leukocytesOrdered By: Renard Burgos on 05-20-2024 Lymphocytes/100 WBC (Bld) 17.7 % Low 19-41 [facility] Comment on above: Order Comment: 109-1 Performed By: #### L 100.0100 ####[facility] [address] [place], [address] Lymphocytes/100 WBC Auto (Unsp spec) 17.7 % Low 19-41 [facility] Basophil percentageOrdered B y: Renard Burgos on 05-20-2024 Basophils/100 WBC (Bld) 0.5 % Normal 0-1 [facility] Comment on above: Order Comment: 109-1 Performed By: #### L 100.0100 ####[facility] [address] [place], [address] CBC W/Diff, Automatedon - 0-2024 Absolute Lymph 1.73 X10 3/uL Normal 0.83-4.51 [facility] Comment on above: Order Comment: 109-1 Performed By: #### L 100.0100 ####[facility] [address] [place], [address] Absolute Neut 7.0 X10 3/uL Normal 2.0-7.7 [facility] Comment on above: Order Comment: 109-1 Performed By: #### L 100.0100 ####[facility] [address] [place], [address] IG% 0.500 Normal 0.0-0.9 [facility] Comment on above: Order Comment: 109-1 Result Comment: IG% - Immature Granulocytes (promyelocytes, myelocytes andmetamyelocytes) > 1% indicates that a LEFT SHIFT is Present. Performed By: #### L 100.0100 ####[facility] [address] [place], [address] Nucleated RBC (Bld) [#/Vol] 0 10*3/uL Normal 0-5 [facility] Comment on above: Order Comment: 109-1 Performed By: #### L 100.0100 ####[facility] [address] [place], [address] RDW SD 42.5 fl Normal 35.1-43.9 [facility] Comment on above: Order Comment: 109-1 Performed By: #### L 100.0100 ####[facility] [address] [place], [address] Eosinophil percentageOrdered By: Renard Burgos on 05-20-2024 Eosinophils/100 WBC (Bld) 0.5 % Normal 0-5 [facility] Comment on above: Order Comment: 109-1 Performed By: #### L 100.0100 ####[facility] [address] [place], [place], [phone](465) Erythrocyte distribution wid th ratioOrdered By: Renard Burgos on 05-20-2024 Erythrocyte distribution width (RBC) [Ratio] 12.6 % Normal 11.6-14.6 [facility] Comment on above: Order Comment: 109-1 Performed By: #### L 100.0100 ####[facility] [address] [place], [place], [phone]) Erythrocyte distribution wid th standard deviationOrdered By: Renard Burgos on 05-20-2024 Erythrocyte distribution width (RBC) [Entitic vol] 42.5 fL 35.1-43.9 [facility] Erythrocyte distribution width (RBC) [Ratio] 42.5 fl 35.1-43.9 [facility] Hemoglobin measurementOrdere d By: Renard Burgos on 05-20-2024 Hemoglobin (Bld) [Mass/Vol] 14.4 g/dL Normal 13.0-16.5 [facility] Comment on above: Order Comment: 109-1 Performed By: #### L 100.0100 ####[facility] [address] [place], [place], [phone] Immature granulocytes/100 WB C Auto (Bld)Ordered By: Renard Burgos on 05-20-2024 Immature granulocytes/100 WBC (Bld) 0.500 % 0.0-0.9 [facility] Comment on above: IG% - Immature Granu locytes (promyelocytes, myelocytes and metamyelocytes) > 1% indicates that a LEFT SHIFT is Present. Lymphocytes Auto (Unsp spec) [#/Vol]Ordered By: Renard Burgos on 05-20-2024 Lymphocytes (Bld) [#/Vol] 1.73 10*3/uL 0.83-4.51 [facility] MCV (mean corpuscular volume ) determinationOrdered By: Renard Burgos on 05-20-2024 MCV (RBC) [Entitic vol] 92.0 fL Normal 80-94 [facility] Comment on above: Order Comment: 109-1 Performed By: #### L 100.0100 ####[facility] [address] [place], [address] Mean corpuscular hemoglobin (MCH) determinationOrdered By: Renard Burgos on 05-20-2024 MCH (RBC) [Entitic mass] 30.4 pg Normal 27.0-32.0 [facility] Comment on above: Order Comment: 109-1 Performed By: #### L 100.0100 ####[facility] [address] [place], [place], [phone] Mean corpuscular hemoglobin concentration (MCHC) determinationOrdered By: Renard Burgos on 05-20-2024 MCHC (RBC) [Mass/Vol] 33.0 g/dL Normal 32-36 [facility] Comment on above: Order Comment: 109-1 Performed By: #### L 100.0100 ####[facility] [address] [place], [address] Mean platelet volume determi nationOrdered By: Renard Burgos on 05-20-2024 Platelet mean volume (Bld) [Entitic vol] 10.7 fL Normal 6.2-12.0 [facility] Comment on above: Order Comment: 109-1 Performed By: #### L 100.0100 ####[facility] [address] [place], [place], [phone] Monocyte percentageOrdered B y: Renard Burgos on 05-20-2024 Monocytes/100 WBC (Bld) 9.4 % Normal 0-10 [facility] Comment on above: Order Comment: 109-1 Performed By: #### L 100.0100 ####[facility] [address] [place], [address] Neutrophil percentageOrdered By: Renard Burgos on 05-20-2024 Neutrophils/100 WBC (Bld) 71.4 % High 47-70 [facility] Comment on above: Order Comment: 109-1 Performed By: #### L 100.0100 ####[facility] [address] [place], [address] Nucleated red blood cell per centageOrdered By: Renard Burgos on 05-20-2024 Nucleated RBC/100 WBC (Bld) [Ratio] 0 % 0-5 [facility] Platelet countOrdered By: Garrick Bhatt on 05-20-2024 Platelets (Bld) [#/Vol] 239 10*3/uL Normal 150-450 [facility] Comment on above: Order Comment: 109-1 Performed By: #### L 100.0100 ####[facility] [address] [place], [address] White blood cell (WBC) count Ordered By: Renard Burgos on 05-20-2024 WBC (Bld) [#/Vol] 9.8 10*3/uL Normal 4.4-11.0 [facility] Comment on above: Order Comment: 109-1 Performed By: #### L 100.0100 ####[facility] [address] [place], [address] Absolute lymphocyte countOrd ered By: Renard Burgos on 05-13-2024 Lymphocytes Auto (Unsp spec) [#/Vol] 2.10 10*3/uL 0.83-4.51 [facility] Absolute neutrophil countOrd ered By: Renard Burgos on 05-13-2024 Neutrophils (Bld) [#/Vol] 6.2 10*3/uL 2.0-7.7 [facility] Automated lymphocyte count a s percentage of total leukocytesOrdered By: Renard Burgos on 05-13-2024 Lymphocytes/100 WBC Auto (Unsp spec) 22.8 % 19-41 [facility] Basophil percentageOrdered B y: Renard Brugos on 05-13-2024 Basophils/100 WBC (Bld) 0.5 % 0-1 [facility] CBC W/Diff, Automatedon 05-01 Absolute Lymph 2.10 X10 3/uL Normal 0.83-4.51 [facility] Comment on above: Order Comment: 109 Performed By: #### L 100.0100 ####[facility] [address] [place], [address] Absolute Neut 6.2 X10 3/uL Normal 2.0-7.7 [facility] Comment on above: Order Comment: 109 Performed By: #### L 100.0100 ####[facility] [address] [place], [address] Basophils/100 WBC (Bld) 0.5 % Normal 0-1 [facility] Comment on above: Order Comment: 109 Performed By: #### L 100.0100 ####[facility] [address] [place], [address] Eosinophils/100 WBC (Bld) 0.5 % Normal 0-5 [facility] Comment on above: Order Comment: 109 Performed By: #### L 100.0100 ####[facility] [address] [place], [address] Erythrocyte distribution width (RBC) [Ratio] 12.9 % Normal 11.6-14.6 [facility] Comment on above: Order Comment: 109 Performed By: #### L 100.0100 ####[facility] [address] [place], [address] Hematocrit (Bld) [Volume fraction] 42.5 % Normal 40-54 [facility] Comment on above: Order Comment: 109 Performed By: #### L 100.0100 ####[facility] [address] [place], [address] Hemoglobin (Bld) [Mass/Vol] 14.2 g/dL Normal 13.0-16.5 [facility] Comment on above: Order Comment: 109 Performed By: #### L 100.0100 ####[facility] [address] [place], [address] IG% 0.300 Normal 0.0-0.9 [facility] Comment on above: Order Comment: 109 Result Comment: IG% - Immature Granulocytes (promyelocytes, myelocytes andmetamyelocytes) > 1% indicates that a LEFT SHIFT is Present. Performed By: #### L 100.0100 ####[facility] [address] [place], [address] Lymphocytes/100 WBC (Bld) 22.8 % Normal 19-41 [facility] Comment on above: Order Comment: 109 Performed By: #### L 100.0100 ####[facility] [address] [place], [address] MCH (RBC) [Entitic mass] 30.3 pg Normal 27.0-32.0 [facility] Comment on above: Order Comment: 109 Performed By: #### L 100.0100 ####[facility] [address] [place], [address] MCHC (RBC) [Mass/Vol] 33.4 g/dL Normal 32-36 [facility] Comment on above: Order Comment: 109 Performed By: #### L 100.0100 ####[facility] [address] [place], [address] MCV (RBC) [Entitic vol] 90.6 fL Normal 80-94 [facility] Comment on above: Order Comment: 109 Performed By: #### L 100.0100 ####[facility] [address] [place], [address] Monocytes/100 WBC (Bld) 8.7 % Normal 0-10 [facility] Comment on above: Order Comment: 109 Performed By: #### L 100.0100 ####[facility] [address] [place], [address] Neutrophils/100 WBC (Bld) 67.2 % Normal 47-70 [facility] Comment on above: Order Comment: 109 Performed By: #### L 100.0100 ####[facility] [address] [place], [address] Nucleated RBC (Bld) [#/Vol] 0 10*3/uL Normal 0-5 [facility] Comment on above: Order Comment: 109 Performed By: #### L 100.0100 ####[facility] [address] [place], [address] Platelet mean volume (Bld) [Entitic vol] 11.1 fL Normal 6.2-12.0 [facility] Comment on above: Order Comment: 109 Performed By: #### L 100.0100 ####[facility] [address] [place], [address] Platelets (Bld) [#/Vol] 218 10*3/uL Normal 150-450 [facility] Comment on above: Order Comment: 109 Performed By: #### L 100.0100 ####[facility] [address] [place], [address] RBC (Bld) [#/Vol] 4.69 10*6/uL Normal 4.6-6.2 [facility] Comment on above: Order Comment: 109 Performed By: #### L 100.0100 ####[facility] [address] [place], [address] RDW SD 42.3 fl Normal 35.1-43.9 [facility] Comment on above: Order Comment: 109 Performed By: #### L 100.0100 ####[facility] [address] [place], [address] WBC (Bld) [#/Vol] 9.2 10*3/uL Normal 4.4-11.0 [facility] Comment on above: Order Comment: 109 Performed By: #### L 100.0100 ####[facility] [address] [place], [address] Eosinophil percentageOrdered By: Renard Burgos on 05-13-2024 Eosinophils/100 WBC (Bld) 0.5 % 0-5 [facility] Erythrocyte distribution wid th ratioOrdered By: Renard Burgos on 05-13-2024 Erythrocyte distribution width (RBC) [Ratio] 12.9 % 11.6-14.6 [facility] Erythrocyte distribution wid th standard deviationOrdered By: Renard Burgos on 05-13-2024 Erythrocyte distribution width (RBC) [Entitic vol] 42.3 fL 35.1-43.9 [facility] Erythrocyte distribution width (RBC) [Ratio] 42.3 fl 35.1-43.9 [facility] Hematocrit Auto (Bld) [Volum e fraction]Ordered By: Renard Burgos on 05-13-2024 Hematocrit (Bld) [Volume fraction] 42.5 % 40-54 [facility] Hemoglobin measurementOrdere d By: Renard Burgos on 05-13-2024 Hemoglobin (Bld) [Mass/Vol] 14.2 g/dL 13.0-16.5 [facility] Immature granulocytes/100 WB C Auto (Bld)Ordered By: Renard Burgos on 05-13-2024 Immature granulocytes/100 WBC (Bld) 0.300 % 0.0-0.9 [facility] Comment on above: IG% - Immature Granu locytes (promyelocytes, myelocytes and metamyelocytes) > 1% indicates that a LEFT SHIFT is Present. Lymphocytes Auto (Unsp spec) [#/Vol]Ordered By: Renard Burgos on 05-13-2024 Lymphocytes (Bld) [#/Vol] 2.10 10*3/uL 0.83-4.51 [facility] Lymphocytes/100 WBC Auto (Un sp spec)Ordered By: Renard Burgos on 05-13-2024 Lymphocytes/100 WBC (Bld) 22.8 % 19-41 [facility] MCV (mean corpuscular volume ) determinationOrdered By: Renard Burgos on 05-13-2024 MCV (RBC) [Entitic vol] 90.6 fL 80-94 [facility] Mean corpuscular hemoglobin (MCH) determinationOrdered By: Renard Burgos on 05-13-2024 MCH (RBC) [Entitic mass] 30.3 pg 27.0-32.0 [facility] Mean corpuscular hemoglobin concentration (MCHC) determinationOrdered By: Renard Burgos on 05-13-2024 MCHC (RBC) [Mass/Vol] 33.4 g/dL 32-36 [facility] Mean platelet volume determi nationOrdered By: Renard Burgos on 05-13-2024 Platelet mean volume (Bld) [Entitic vol] 11.1 fL 6.2-12.0 [facility] Monocyte percentageOrdered B y: Renard Burgos on 05-13-2024 Monocytes/100 WBC (Bld) 8.7 % 0-10 [facility] Neutrophil percentageOrdered By: Renard Burgos on 05-13-2024 Neutrophils/100 WBC (Bld) 67.2 % 47-70 [facility] Nucleated red blood cell per centageOrdered By: Renard Burgos on 05-13-2024 Nucleated RBC/100 WBC (Bld) [Ratio] 0 % 0-5 [facility] Platelet countOrdered By: Garrick Bhatt on 05-13-2024 Platelets (Bld) [#/Vol] 218 10*3/uL 150-450 [facility] RBC Auto (Bld) [#/Vol]Ordere d By: Renard Burgos on 05-13-2024 RBC (Bld) [#/Vol] 4.69 10*6/uL 4.6-6.2 [facility] White blood cell (WBC) count Ordered By: Renard Burgos on 05-13-2024 WBC (Bld) [#/Vol] 9.2 10*3/uL 4.4-11.0 [facility] Absolute neutrophil countOrd ered By: Renard Burgos on 05-06-2024 Neutrophils (Bld) [#/Vol] 5.9 10*3/uL 2.0-7.7 [facility] Automated blood erythrocyte countOrdered By: Renard Burgos on 05-06-2024 RBC (Bld) [#/Vol] 4.85 10*6/uL Normal 4.6-6.2 [facility] Comment on above: Order Comment: 109-1 Performed By: #### L 100.0100 ####[facility] [address] [place], [address] Automated blood hematocrit ( percentage)Ordered By: Renard Burgos on 05-06-2024 Hematocrit (Bld) [Volume fraction] 45.0 % Normal 40-54 [facility] Comment on above: Order Comment: 109-1 Performed By: #### L 100.0100 ####[facility] [address] [place], [address] Automated lymphocyte count a s percentage of total leukocytesOrdered By: Renard Burgos on 05-06-2024 Lymphocytes/100 WBC (Bld) 24.4 % Normal 19-41 [facility] Comment on above: Order Comment: 109-1 Performed By: #### L 100.0100 ####[facility] [address] [place], [place], [address] Basophil percentageOrdered B y: Renard Burgos on 05-06-2024 Basophils/100 WBC (Bld) 0.5 % Normal 0-1 [facility] Comment on above: Order Comment: 109-1 Performed By: #### L 100.0100 ####[facility] [address] [place], [address] CBC W/Diff, Automatedon Absolute Lymph 2.22 X10 3/uL Normal 0.83-4.51 [facility] Comment on above: Order Comment: 109-1 Performed By: #### L 100.0100 ####[facility] [address] [place], [address] Absolute Neut 5.9 X10 3/uL Normal 2.0-7.7 [facility] Comment on above: Order Comment: 109-1 Performed By: #### L 100.0100 ####[facility] [address] [place], [address] IG% 0.500 Normal 0.0-0.9 [facility] Comment on above: Order Comment: 109-1 Result Comment: IG% - Immature Granulocytes (promyelocytes, myelocytes andmetamyelocytes) > 1% indicates that a LEFT SHIFT is Present. Performed By: #### L 100.0100 ####[facility] [address] [place], [address] Nucleated RBC (Bld) [#/Vol] 0 10*3/uL Normal 0-5 [facility] Comment on above: Order Comment: 109-1 Performed By: #### L 100.0100 ####[facility] [address] [place], [address] RDW SD 43.9 fl Normal 35.1-43.9 [facility] Comment on above: Order Comment: 109-1 Performed By: #### L 100.0100 ####[facility] [address] [place], [address] Eosinophil percentageOrdered By: Renard Burgos on 05-06-2024 Eosinophils/100 WBC (Bld) 0.4 % Normal 0-5 [facility] Comment on above: Order Comment: 109-1 Performed By: #### L 100.0100 ####[facility] [address] [place], [address] Erythrocyte distribution wid th ratioOrdered By: Renard Burgos on 05-06-2024 Erythrocyte distribution width (RBC) [Ratio] 13.0 % Normal 11.6-14.6 [facility] Comment on above: Order Comment: 109-1 Performed By: #### L 100.0100 ####[facility] [address] [place], [address] Erythrocyte distribution wid th standard deviationOrdered By: Renard Burgos on 05-06-2024 Erythrocyte distribution width (RBC) [Entitic vol] 43.9 fL 35.1-43.9 [facility] Hemoglobin measurementOrdere d By: Renard Burgos on 05-06-2024 Hemoglobin (Bld) [Mass/Vol] 14.5 g/dL Normal 13.0-16.5 [facility] Comment on above: Order Comment: 109-1 Performed By: #### L 100.0100 ####[facility] [address] [place], [place], [address] Immature granulocytes/100 WB C Auto (Bld)Ordered By: Renard Burgos on 05-06-2024 Immature granulocytes/100 WBC (Bld) 0.500 % 0.0-0.9 [facility] Comment on above: IG% - Immature Granu locytes (promyelocytes, myelocytes and metamyelocytes) > 1% indicates that a LEFT SHIFT is Present. Lymphocytes Auto (Unsp spec) [#/Vol]Ordered By: Renard Burgos on 05-06-2024 Lymphocytes (Bld) [#/Vol] 2.22 10*3/uL 0.83-4.51 [facility] MCV (mean corpuscular volume ) determinationOrdered By: Renard Burgos on 05-06-2024 MCV (RBC) [Entitic vol] 92.8 fL Normal 80-94 [facility] Comment on above: Order Comment: 109-1 Performed By: #### L 100.0100 ####[facility] [address] [place], [place], [phone] Mean corpuscular hemoglobin (MCH) determinationOrdered By: Renard Burgos on 05-06-2024 MCH (RBC) [Entitic mass] 29.9 pg Normal 27.0-32.0 [facility] Comment on above: Order Comment: 109-1 Performed By: #### L 100.0100 ####[facility] [address] [place], [place], [address] Mean corpuscular hemoglobin concentration (MCHC) determinationOrdered By: Renard Burgos on 05-06-2024 MCHC (RBC) [Mass/Vol] 32.2 g/dL Normal 32-36 [facility] Comment on above: Order Comment: 109-1 Performed By: #### L 100.0100 ####[facility] [address] [place], [address] Mean platelet volume determi nationOrdered By: Renard Burgos on 05-06-2024 Platelet mean volume (Bld) [Entitic vol] 11.4 fL Normal 6.2-12.0 [facility] Comment on above: Order Comment: 109-1 Performed By: #### L 100.0100 ####[facility] [address] [place], [address] Monocyte percentageOrdered B y: Renard Burgos on 05-06-2024 Monocytes/100 WBC (Bld) 9.7 % Normal 0-10 [facility] Comment on above: Order Comment: 109-1 Performed By: #### L 100.0100 ####[facility] [address] [place], [address] Neutrophil percentageOrdered By: Renard Burgos on 05-06-2024 Neutrophils/100 WBC (Bld) 64.5 % Normal 47-70 [facility] Comment on above: Order Comment: 109-1 Performed By: #### L 100.0100 ####[facility] [address] [place], [address] Nucleated red blood cell per centageOrdered By: Renard Burgos on 05-06-2024 Nucleated RBC/100 WBC (Bld) [Ratio] 0 % 0-5 [facility] Platelet countOrdered By: Garrick Bhatt on 05-06-2024 Platelets (Bld) [#/Vol] 201 10*3/uL Normal 150-450 [facility] Comment on above: Order Comment: 109-1 Performed By: #### L 100.0100 ####[facility] [address] [place], [address] White blood cell (WBC) count Ordered By: Renard Burgos on 05-06-2024 WBC (Bld) [#/Vol] 9.1 10*3/uL Normal 4.4-11.0 [facility] Comment on above: Order Comment: 109-1 Performed By: #### L 100.0100 ####[facility] [address] [place], [address] 36on 05-03-2024 36 Gissel is calling to let Dr. Burgos know that the medication he prescribed he not certified, she is going to fax the information to the office. [phone] Normal [facility] Absolute neutrophil countOrd ered By: Renard Burgos on 04-29-2024 Neutrophils (Bld) [#/Vol] 6.3 10*3/uL 2.0-7.7 [facility] Basophil percentageOrdered B y: Renard Burgos on 04-29-2024 Basophils/100 WBC (Bld) 0.4 % 0-1 [facility] CBC W/Diff, Automatedon --2023 Absolute Lymph 2.11 X10 3/uL Normal 0.83-4.51 [facility] Comment on above: Order Comment: 109.1 Performed By: #### L 100.0100 ####[facility] [address] [place], [address] Absolute Neut 6.3 X10 3/uL Normal 2.0-7.7 [facility] Comment on above: Order Comment: 109.1 Performed By: #### L 100.0100 ####[facility] [address] [place], [address] Basophils/100 WBC (Bld) 0.4 % Normal 0-1 [facility] Comment on above: Order Comment: 109.1 Performed By: #### L 100.0100 ####[facility] [address] [place], [address] Eosinophils/100 WBC (Bld) 0.4 % Normal 0-5 [facility] Comment on above: Order Comment: 109.1 Performed By: #### L 100.0100 ####[facility] [address] [place], [address] Erythrocyte distribution width (RBC) [Ratio] 12.6 % Normal 11.6-14.6 [facility] Comment on above: Order Comment: 109.1 Performed By: #### L 100.0100 ####[facility] [address] [place], [address] Hematocrit (Bld) [Volume fraction] 41.6 % Normal 40-54 [facility] Comment on above: Order Comment: 109.1 Performed By: #### L 100.0100 ####[facility] [address] [place], [address] Hemoglobin (Bld) [Mass/Vol] 13.7 g/dL Normal 13.0-16.5 [facility] Comment on above: Order Comment: 109.1 Performed By: #### L 100.0100 ####[facility] [address] [place], [address] IG% 0.400 Normal 0.0-0.9 [facility] Comment on above: Order Comment: 109.1 Result Comment: IG% - Immature Granulocytes (promyelocytes, myelocytes andmetamyelocytes) > 1% indicates that a LEFT SHIFT is Present. Performed By: #### L 100.0100 ####[facility] [address] [place], [address] Lymphocytes/100 WBC (Bld) 22.6 % Normal 19-41 [facility] Comment on above: Order Comment: 109.1 Performed By: #### L 100.0100 ####[facility] [address] [place], [address] MCH (RBC) [Entitic mass] 30.1 pg Normal 27.0-32.0 [facility] Comment on above: Order Comment: 109.1 Performed By: #### L 100.0100 ####[facility] [address] [place], [address] MCHC (RBC) [Mass/Vol] 32.9 g/dL Normal 32-36 [facility] Comment on above: Order Comment: 109.1 Performed By: #### L 100.0100 ####[facility] [address] [place], [address] MCV (RBC) [Entitic vol] 91.4 fL Normal 80-94 [facility] Comment on above: Order Comment: 109.1 Performed By: #### L 100.0100 ####[facility] [address] [place], [address] Monocytes/100 WBC (Bld) 9.3 % Normal 0-10 [facility] Comment on above: Order Comment: 109.1 Performed By: #### L 100.0100 ####[facility] [address] [place], [address] Neutrophils/100 WBC (Bld) 66.9 % Normal 47-70 [facility] Comment on above: Order Comment: 109.1 Performed By: #### L 100.0100 ####[facility] [address] [place], [address] Nucleated RBC (Bld) [#/Vol] 0 10*3/uL Normal 0-5 [facility] Comment on above: Order Comment: 109.1 Performed By: #### L 100.0100 ####[facility] [address] [place], [address] Platelet mean volume (Bld) [Entitic vol] 11.0 fL Normal 6.2-12.0 [facility] Comment on above: Order Comment: 109.1 Performed By: #### L 100.0100 ####[facility] [address] [place], [address] Platelets (Bld) [#/Vol] 211 10*3/uL Normal 150-450 [facility] Comment on above: Order Comment: 109.1 Performed By: #### L 100.0100 ####[facility] [address] [place], [address] RBC (Bld) [#/Vol] 4.55 10*6/uL Low 4.6-6.2 [facility] Comment on above: Order Comment: 109.1 Performed By: #### L 100.0100 ####[facility] [address] [place], [address] RDW SD 41.5 fl Normal 35.1-43.9 [facility] Comment on above: Order Comment: 109.1 Performed By: #### L 100.0100 ####[facility] [address] [place], [address] WBC (Bld) [#/Vol] 9.4 10*3/uL Normal 4.4-11.0 [facility] Comment on above: Order Comment: 109.1 Performed By: #### L 100.0100 ####[facility] [address] [place], [address] Eosinophil percentageOrdered By: Renard Burgos on 04-29-2024 Eosinophils/100 WBC (Bld) 0.4 % 0-5 [facility] Erythrocyte distribution wid th ratioOrdered By: Renard Burgos on 04-29-2024 Erythrocyte distribution width (RBC) [Ratio] 12.6 % 11.6-14.6 [facility] Erythrocyte distribution wid th standard deviationOrdered By: Renard Burgos on 04-29-2024 Erythrocyte distribution width (RBC) [Entitic vol] 41.5 fL 35.1-43.9 [facility] Hematocrit Auto (Bld) [Volum e fraction]Ordered By: Renard Burgos on 04-29-2024 Hematocrit (Bld) [Volume fraction] 41.6 % 40-54 [facility] Hemoglobin measurementOrdere d By: Renard Burgos on 04-29-2024 Hemoglobin (Bld) [Mass/Vol] 13.7 g/dL 13.0-16.5 [facility] Immature granulocytes/100 WB C Auto (Bld)Ordered By: Renard Burgos on 04-29-2024 Immature granulocytes/100 WBC (Bld) 0.400 % 0.0-0.9 [facility] Comment on above: IG% - Immature Granu locytes (promyelocytes, myelocytes and metamyelocytes) > 1% indicates that a LEFT SHIFT is Present. Lymphocytes Auto (Unsp spec) [#/Vol]Ordered By: Renard Burgos on 04-29-2024 Lymphocytes (Bld) [#/Vol] 2.11 10*3/uL 0.83-4.51 [facility] Lymphocytes/100 WBC Auto (Un sp spec)Ordered By: Renard Burgos on 04-29-2024 Lymphocytes/100 WBC (Bld) 22.6 % 19-41 [facility] MCV (mean corpuscular volume ) determinationOrdered By: Renard Burgos on 04-29-2024 MCV (RBC) [Entitic vol] 91.4 fL 80-94 [facility] Mean corpuscular hemoglobin (MCH) determinationOrdered By: Renard Burgos on 04-29-2024 MCH (RBC) [Entitic mass] 30.1 pg 27.0-32.0 [facility] Mean corpuscular hemoglobin concentration (MCHC) determinationOrdered By: Renard Burgos on 04-29-2024 MCHC (RBC) [Mass/Vol] 32.9 g/dL 32-36 [facility] Mean platelet volume determi nationOrdered By: Renard Burgos on 04-29-2024 Platelet mean volume (Bld) [Entitic vol] 11.0 fL 6.2-12.0 [facility] Monocyte percentageOrdered B y: Renard Burgos on 04-29-2024 Monocytes/100 WBC (Bld) 9.3 % 0-10 [facility] Neutrophil percentageOrdered By: Renard Burgos on 04-29-2024 Neutrophils/100 WBC (Bld) 66.9 % 47-70 [facility] Nucleated red blood cell per centageOrdered By: Renard Burgos on 04-29-2024 Nucleated RBC/100 WBC (Bld) [Ratio] 0 % 0-5 [facility] Platelet countOrdered By: Garrick Bhatt on 04-29-2024 Platelets (Bld) [#/Vol] 211 10*3/uL 150-450 [facility] RBC Auto (Bld) [#/Vol]Ordere d By: Renard Burgos on 04-29-2024 RBC (Bld) [#/Vol] 4.55 10*6/uL Low 4.6-6.2 [facility] White blood cell (WBC) count Ordered By: Renard Burgos on 04-29-2024 WBC (Bld) [#/Vol] 9.4 10*3/uL 4.4-11.0 [facility] Absolute neutrophil countOrd ered By: Renard Burgos on 04-22-2024 Neutrophils (Bld) [#/Vol] 8.1 10*3/uL High 2.0-7.7 [facility] Basophil percentageOrdered B y: Renard Burgos on 04-22-2024 Basophils/100 WBC (Bld) 0.5 % 0-1 [facility] CBC W/Diff, Automatedon 04-01 Absolute Lymph 2.61 X10 3/uL Normal 0.83-4.51 [facility] Comment on above: Order Comment: 109-1 Performed By: #### L 100.0100 ####[facility] [address] [place], [address] Absolute Neut 8.1 X10 3/uL High 2.0-7.7 [facility] Comment on above: Order Comment: 109-1 Performed By: #### L 100.0100 ####[facility] [address] [place], [address] Basophils/100 WBC (Bld) 0.5 % Normal 0-1 [facility] Comment on above: Order Comment: 109-1 Performed By: #### L 100.0100 ####[facility] [address] [place], [address] Eosinophils/100 WBC (Bld) 0.4 % Normal 0-5 [facility] Comment on above: Order Comment: 109-1 Performed By: #### L 100.0100 ####[facility] [address] [place], [address] Erythrocyte distribution width (RBC) [Ratio] 12.6 % Normal 11.6-14.6 [facility] Comment on above: Order Comment: 109-1 Performed By: #### L 100.0100 ####[facility] [address] [place], [address] Hematocrit (Bld) [Volume fraction] 44.5 % Normal 40-54 [facility] Comment on above: Order Comment: 109-1 Performed By: #### L 100.0100 ####[facility] [address] [place], [address] Hemoglobin (Bld) [Mass/Vol] 14.3 g/dL Normal 13.0-16.5 [facility] Comment on above: Order Comment: 109-1 Performed By: #### L 100.0100 ####[facility] [address] [place], [address] IG% 0.300 Normal 0.0-0.9 [facility] Comment on above: Order Comment: 109-1 Result Comment: IG% - Immature Granulocytes (promyelocytes, myelocytes andmetamyelocytes) > 1% indicates that a LEFT SHIFT is Present. Performed By: #### L 100.0100 ####[facility] [address] [place], [address] Lymphocytes/100 WBC (Bld) 22.0 % Normal 19-41 [facility] Comment on above: Order Comment: 109-1 Performed By: #### L 100.0100 ####[facility] [id number] [place], [address] MCH (RBC) [Entitic mass] 29.7 pg Normal 27.0-32.0 [facility] Comment on above: Order Comment: 109-1 Performed By: #### L 100.0100 ####[facility] [id number] [place], [address] MCHC (RBC) [Mass/Vol] 32.1 g/dL Normal 32-36 [facility] Comment on above: Order Comment: 109-1 Performed By: #### L 100.0100 ####[facility] [address] [place], [address] MCV (RBC) [Entitic vol] 92.5 fL Normal 80-94 [facility] Comment on above: Order Comment: 109-1 Performed By: #### L 100.0100 ####[facility] [address] [place], [address] Monocytes/100 WBC (Bld) 8.3 % Normal 0-10 [facility] Comment on above: Order Comment: 109-1 Performed By: #### L 100.0100 ####[facility] [address] [place], [address] Neutrophils/100 WBC (Bld) 68.5 % Normal 47-70 [facility] Comment on above: Order Comment: 109-1 Performed By: #### L 100.0100 ####[facility] [address] [place], [address] Nucleated RBC (Bld) [#/Vol] 0 10*3/uL Normal 0-5 [facility] Comment on above: Order Comment: 109-1 Performed By: #### L 100.0100 ####[facility] [address] [place], [address] Platelet mean volume (Bld) [Entitic vol] 11.0 fL Normal 6.2-12.0 [facility] Comment on above: Order Comment: 109-1 Performed By: #### L 100.0100 ####[facility] [address] [place], [address] Platelets (Bld) [#/Vol] 190 10*3/uL Normal 150-450 [facility] Comment on above: Order Comment: 109-1 Performed By: #### L 100.0100 ####[facility] [address] [place], [address] RBC (Bld) [#/Vol] 4.81 10*6/uL Normal 4.6-6.2 [facility] Comment on above: Order Comment: 109-1 Performed By: #### L 100.0100 ####[facility] [address] [place], [address] RDW SD 43.0 fl Normal 35.1-43.9 [facility] Comment on above: Order Comment: 109-1 Performed By: #### L 100.0100 ####[facility] [address] [place], [address] WBC (Bld) [#/Vol] 11.9 10*3/uL High 4.4-11.0 [facility] Comment on above: Order Comment: 109-1 Performed By: #### L 100.0100 ####[facility] [address] [place], [address] Eosinophil percentageOrdered By: Renard Burgos on 04-22-2024 Eosinophils/100 WBC (Bld) 0.4 % 0-5 [facility] Erythrocyte distribution wid th ratioOrdered By: Renard Burgos on 04-22-2024 Erythrocyte distribution width (RBC) [Ratio] 12.6 % 11.6-14.6 [facility] Erythrocyte distribution wid th standard deviationOrdered By: Renard Burgos on 04-22-2024 Erythrocyte distribution width (RBC) [Entitic vol] 43.0 fL 35.1-43.9 [facility] Hematocrit Auto (Bld) [Volum e fraction]Ordered By: Renard Burgos on 04-22-2024 Hematocrit (Bld) [Volume fraction] 44.5 % 40-54 [facility] Hemoglobin measurementOrdere d By: Renard Burgos on 04-22-2024 Hemoglobin (Bld) [Mass/Vol] 14.3 g/dL 13.0-16.5 [facility] Immature granulocytes/100 WB C Auto (Bld)Ordered By: Renard Burgos on 04-22-2024 Immature granulocytes/100 WBC (Bld) 0.300 % 0.0-0.9 [facility] Comment on above: IG% - Immature Granu locytes (promyelocytes, myelocytes and metamyelocytes) > 1% indicates that a LEFT SHIFT is Present. Lymphocytes Auto (Unsp spec) [#/Vol]Ordered By: Renard Burgos on 04-22-2024 Lymphocytes (Bld) [#/Vol] 2.61 10*3/uL 0.83-4.51 [facility] Lymphocytes/100 WBC Auto (Un sp spec)Ordered By: Renard Burgos on 04-22-2024 Lymphocytes/100 WBC (Bld) 22.0 % 19-41 [facility] MCV (mean corpuscular volume ) determinationOrdered By: Renard Burgos on 04-22-2024 MCV (RBC) [Entitic vol] 92.5 fL 80-94 [facility] Mean corpuscular hemoglobin (MCH) determinationOrdered By: Renard Burgos on 04-22-2024 MCH (RBC) [Entitic mass] 29.7 pg 27.0-32.0 [facility] Mean corpuscular hemoglobin concentration (MCHC) determinationOrdered By: Renard Burgos on 04-22-2024 MCHC (RBC) [Mass/Vol] 32.1 g/dL 32-36 [facility] Mean platelet volume determi nationOrdered By: Renard Burgos on 04-22-2024 Platelet mean volume (Bld) [Entitic vol] 11.0 fL 6.2-12.0 [facility] Monocyte percentageOrdered B y: Renard Burgos on 04-22-2024 Monocytes/100 WBC (Bld) 8.3 % 0-10 [facility] Neutrophil percentageOrdered By: Renard Burgos on 12-23-2024 Neutrophils/100 WBC (Bld) 68.5 % 47-70 [facility] Nucleated red blood cell per centageOrdered By: Renard Burgos on 04-22-2024 Nucleated RBC/100 WBC (Bld) [Ratio] 0 % 0-5 [facility] Platelet countOrdered By: Garrick Bhatt on 04-22-2024 Platelets (Bld) [#/Vol] 190 10*3/uL 150-450 [facility] RBC Auto (Bld) [#/Vol]Ordere d By: Renard Burgos on 04-22-2024 RBC (Bld) [#/Vol] 4.81 10*6/uL 4.6-6.2 [facility] White blood cell (WBC) count Ordered By: Renard Burgos on 04-22-2024 WBC (Bld) [#/Vol] 11.9 10*3/uL High 4.4-11.0 [facility] Absolute neutrophil countOrd ered By: Renard Burgos on 04-15-2024 Neutrophils (Bld) [#/Vol] 8.7 10*3/uL High 2.0-7.7 [facility] Basophil percentageOrdered B y: Renard Burgos on 04-15-2024 Basophils/100 WBC (Bld) 0.3 % 0-1 [facility] Bilirubin, totalOrdered By: Renard Burgos on 04-15-2024 Bilirubin [Mass/Vol] 0.30 mg/dL 0.20-1.00 [facility] Comment on above: For patients on eltr ombopag therapy, use of Dimension Harmony TBIL is not recommended. Bilirubin.direct [Mass/Vol]O rdered By: Renard Burgos on 04-15-2024 Direct Bilirubin < 0.05 mg/dL 0.00-0.30 [facility] CBC W/Diff, Automatedon 03-31 Absolute Lymph 1.93 X10 3/uL Normal 0.83-4.51 [facility] Comment on above: Order Comment: 109-1 Performed By: #### L 100.0100, L500.3400 ####[facility] [address] [place], [address] Absolute Neut 8.7 X10 3/uL High 2.0-7.7 [facility] Comment on above: Order Comment: 109-1 Performed By: #### L 100.0100, L500.3400 ####[facility] [address] [place], [address] Basophils/100 WBC (Bld) 0.3 % Normal 0-1 [facility] Comment on above: Order Comment: 109-1 Performed By: #### L 100.0100, L500.3400 ####[facility] [address] [place], [address] Eosinophils/100 WBC (Bld) 0.4 % Normal 0-5 [facility] Comment on above: Order Comment: 109-1 Performed By: #### L 100.0100, L500.3400 ####[facility] [address] [place], [address] Erythrocyte distribution width (RBC) [Ratio] 12.8 % Normal 11.6-14.6 [facility] Comment on above: Order Comment: 109-1 Performed By: #### L 100.0100, L500.3400 ####[facility] [address] [place], [address] Hematocrit (Bld) [Volume fraction] 42.5 % Normal 40-54 [facility] Comment on above: Order Comment: 109-1 Performed By: #### L 100.0100, L500.3400 ####[facility] [address] [place], [address] Hemoglobin (Bld) [Mass/Vol] 13.7 g/dL Normal 13.0-16.5 [facility] Comment on above: Order Comment: 109-1 Performed By: #### L 100.0100, L500.3400 ####[facility] [address] [place], [address] IG% 0.400 Normal 0.0-0.9 [facility] Comment on above: Order Comment: 109-1 Result Comment: IG% - Immature Granulocytes (promyelocytes, myelocytes andmetamyelocytes) > 1% indicates that a LEFT SHIFT is Present. Performed By: #### L 100.0100, L500.3400 ####[facility] [address] [place], [address] Lymphocytes/100 WBC (Bld) 16.9 % Low 19-41 [facility] Comment on above: Order Comment: 109-1 Performed By: #### L 100.0100, L500.3400 ####[facility] [address] [place], [address] MCH (RBC) [Entitic mass] 29.5 pg Normal 27.0-32.0 [facility] Comment on above: Order Comment: 109-1 Performed By: #### L 100.0100, L500.3400 ####[facility] [address] [place], [address] MCHC (RBC) [Mass/Vol] 32.2 g/dL Normal 32-36 [facility] Comment on above: Order Comment: 109-1 Performed By: #### L 100.0100, L500.3400 ####[facility] [address] [place], [address] MCV (RBC) [Entitic vol] 91.6 fL Normal 80-94 [facility] Comment on above: Order Comment: 109-1 Performed By: #### L 100.0100, L500.3400 ####[facility] [address] [place], [address] Monocytes/100 WBC (Bld) 6.0 % Normal 0-10 [facility] Comment on above: Order Comment: 109-1 Performed By: #### L 100.0100, L500.3400 ####[facility] [address] [place], [address] Neutrophils/100 WBC (Bld) 76.0 % High 47-70 [facility] Comment on above: Order Comment: 109-1 Performed By: #### L 100.0100, L500.3400 ####[facility] [address] [place], [address] Nucleated RBC (Bld) [#/Vol] 0 10*3/uL Normal 0-5 [facility] Comment on above: Order Comment: 109-1 Performed By: #### L 100.0100, L500.3400 ####[facility] [address] [place], [address] Platelet mean volume (Bld) [Entitic vol] 11.1 fL Normal 6.2-12.0 [facility] Comment on above: Order Comment: 109-1 Performed By: #### L 100.0100, L500.3400 ####[facility] [address] [place], [address] Platelets (Bld) [#/Vol] 197 10*3/uL Normal 150-450 [facility] Comment on above: Order Comment: 109-1 Performed By: #### L 100.0100, L500.3400 ####[facility] [address] [place], [address] RBC (Bld) [#/Vol] 4.64 10*6/uL Normal 4.6-6.2 [facility] Comment on above: Order Comment: 109-1 Performed By: #### L 100.0100, L500.3400 ####[facility] [address] [place], [address] RDW SD 42.5 fl Normal 35.1-43.9 [facility] Comment on above: Order Comment: 109-1 Performed By: #### L 100.0100, L500.3400 ####[facility] [address] [place], [place], [address] WBC (Bld) [#/Vol] 11.4 10*3/uL High 4.4-11.0 [facility] Comment on above: Order Comment: 109-1 Performed By: #### L 100.0100, L500.3400 ####[facility] [address] [place], [place], [address] Eosinophil percentageOrdered By: Renard Burgos on 04-15-2024 Eosinophils/100 WBC (Bld) 0.4 % 0-5 [facility] Erythrocyte distribution wid th ratioOrdered By: Renard Burgos on 04-15-2024 Erythrocyte distribution width (RBC) [Ratio] 12.8 % 11.6-14.6 [facility] Erythrocyte distribution wid th standard deviationOrdered By: Renard Burgos on 04-15-2024 Erythrocyte distribution width (RBC) [Entitic vol] 42.5 fL 35.1-43.9 [facility] Hematocrit Auto (Bld) [Volum e fraction]Ordered By: Renard Burgos on 04-15-2024 Hematocrit (Bld) [Volume fraction] 42.5 % 40-54 [facility] Hemoglobin measurementOrdere d By: Renard Burgos on 04-15-2024 Hemoglobin (Bld) [Mass/Vol] 13.7 g/dL 13.0-16.5 [facility] Immature granulocytes/100 WB C Auto (Bld)Ordered By: Renard Burgos on 04-15-2024 Immature granulocytes/100 WBC (Bld) 0.400 % 0.0-0.9 [facility] Comment on above: IG% - Immature Granu locytes (promyelocytes, myelocytes and metamyelocytes) > 1% indicates that a LEFT SHIFT is Present. Laboratory - Chemistry and C hemistry - challengeOrdered By: Renard Burgos on 04-15-2024 AST [Catalytic activity/Vol] 18 U/L 15-37 [facility] Comment on above: Slight Hemolysis, Re sult may be falsely increased. Liver Profileon 04-15-2024 Albumin [Mass/Vol] 2.9 g/dL Low 3.2-5.0 [facility] Comment on above: Order Comment: 109-1 Performed By: #### L 100.0100, L500.3400 ####[facility] [address] [place], [address] ALK P 126 U/L High 45-117 [facility] Comment on above: Order Comment: 109-1 Performed By: #### L 100.0100, L500.3400 ####[facility] [address] [place], [address] ALT [Catalytic activity/Vol] 21 U/L Normal 16-61 [facility] Comment on above: Order Comment: 109-1 Performed By: #### L 100.0100, L500.3400 ####[facility] [address] [place], [address] AST [Catalytic activity/Vol] 18 U/L Normal 15-37 [facility] Comment on above: Order Comment: 109-1 Result Comment: Slig ht Hemolysis, Result may be falsely increased. Performed By: #### L 100.0100, L500.3400 ####[facility] [address] [place], [address] Bilirubin [Mass/Vol] 0.30 mg/dL Normal 0.20-1.00 [facility] Comment on above: Order Comment: 109-1 Result Comment: For patients on eltrombopag therapy, use of Dimension Harmony TBIL is not recommended. Performed By: #### L 100.0100, L500.3400 ####[facility] [address] [place], [address] D BILI < 0.05 Normal 0.00-0.30 [facility] Comment on above: Order Comment: 109-1 Performed By: #### L 100.0100, L500.3400 ####[facility] [address] [place], [address] Globulin (S) [Mass/Vol] 3.0 g/dL Normal 2.2-4.2 [facility] Comment on above: Order Comment: 109-1 Performed By: #### L 100.0100, L500.3400 ####[facility] [address] [place], [address] T PROT 5.9 g/dL Low 6.4-8.2 [facility] Comment on above: Order Comment: 109-1 Performed By: #### L 100.0100, L500.3400 ####[facility] [address] [place], [address] Lymphocytes Auto (Unsp spec) [#/Vol]Ordered By: Renard Burgos on 04-15-2024 Lymphocytes (Bld) [#/Vol] 1.93 10*3/uL 0.83-4.51 [facility] Lymphocytes/100 WBC Auto (Un sp spec)Ordered By: Renard Burgos on 04-15-2024 Lymphocytes/100 WBC (Bld) 16.9 % Low 19-41 [facility] MCV (mean corpuscular volume ) determinationOrdered By: Renard Burgos on 04-15-2024 MCV (RBC) [Entitic vol] 91.6 fL 80-94 [facility] Mean corpuscular hemoglobin (MCH) determinationOrdered By: Renard Burgos on 04-15-2024 MCH (RBC) [Entitic mass] 29.5 pg 27.0-32.0 [facility] Mean corpuscular hemoglobin concentration (MCHC) determinationOrdered By: Renard Burgos on 04-15-2024 MCHC (RBC) [Mass/Vol] 32.2 g/dL 32-36 [facility] Mean platelet volume determi nationOrdered By: Renard Burgos on 04-15-2024 Platelet mean volume (Bld) [Entitic vol] 11.1 fL 6.2-12.0 [facility] Monocyte percentageOrdered B y: Renard Burgos on 04-15-2024 Monocytes/100 WBC (Bld) 6.0 % 0-10 [facility] Neutrophil percentageOrdered By: Renard Burgos on 04-15-2024 Neutrophils/100 WBC (Bld) 76.0 % High 47-70 [facility] Nucleated red blood cell per centageOrdered By: Renard Burgos on 04-15-2024 Nucleated RBC/100 WBC (Bld) [Ratio] 0 % 0-5 [facility] Platelet countOrdered By: Garrick Bhatt on 04-15-2024 Platelets (Bld) [#/Vol] 197 10*3/uL 150-450 [facility] RBC Auto (Bld) [#/Vol]Ordere d By: Renard Burgos on 04-15-2024 RBC (Bld) [#/Vol] 4.64 10*6/uL 4.6-6.2 [facility] Serum globulin measurementOr dered By: Renard Burgos on 04-15-2024 Globulin (S) [Mass/Vol] 3.0 g/dL 2.2-4.2 [facility] Serum or plasma alanine kay otransferase (ALT) measurementOrdered By: Renard Burgos on 04-15-2024 ALT [Catalytic activity/Vol] 21 U/L 16-61 [facility] Serum or plasma albumin gordy urement (mass/volume)Ordered By: Renard Burgos on 04-15-2024 Albumin [Mass/Vol] 2.9 g/dL Low 3.2-5.0 [facility] Serum or plasma alkaline trace sphatase measurementOrdered By: Renard Burgos on 04-15-2024 ALP [Catalytic activity/Vol] 126 U/L High 45-117 [facility] Total proteinOrdered By: Lyubov Burgos on 04-15-2024 Protein [Mass/Vol] 5.9 g/dL Low 6.4-8.2 [facility] White blood cell (WBC) count Ordered By: Renard Burgos on 04-15-2024 WBC (Bld) [#/Vol] 11.4 10*3/uL High 4.4-11.0 [facility] Absolute neutrophil countOrd ered By: Renard Burgos on 04-08-2024 Neutrophils (Bld) [#/Vol] 5.7 10*3/uL 2.0-7.7 [facility] Basophil percentageOrdered B y: Renard Burgos on 04-08-2024 Basophils/100 WBC (Bld) 0.6 % 0-1 [facility] CBC W/Diff, Automatedon 12- Absolute Lymph 2.27 X10 3/uL Normal 0.83-4.51 [facility] Comment on above: Order Comment: 109.1 Performed By: #### L 100.0100 ####[facility] [address] [place], [address] Absolute Neut 5.7 X10 3/uL Normal 2.0-7.7 [facility] Comment on above: Order Comment: 109.1 Performed By: #### L 100.0100 ####[facility] [address] [place], [address] Basophils/100 WBC (Bld) 0.6 % Normal 0-1 [facility] Comment on above: Order Comment: 109.1 Performed By: #### L 100.0100 ####[facility] [address] [place], [address] Eosinophils/100 WBC (Bld) 0.5 % Normal 0-5 [facility] Comment on above: Order Comment: 109.1 Performed By: #### L 100.0100 ####[facility] [address] [place], [address] Erythrocyte distribution width (RBC) [Ratio] 12.6 % Normal 11.6-14.6 [facility] Comment on above: Order Comment: 109.1 Performed By: #### L 100.0100 ####[facility] [address] [place], [address] Hematocrit (Bld) [Volume fraction] 41.2 % Normal 40-54 [facility] Comment on above: Order Comment: 109.1 Performed By: #### L 100.0100 ####[facility] [address] [place], [address] Hemoglobin (Bld) [Mass/Vol] 13.3 g/dL Normal 13.0-16.5 [facility] Comment on above: Order Comment: 109.1 Performed By: #### L 100.0100 ####[facility] [address] [place], [address] IG% 0.200 Normal 0.0-0.9 [facility] Comment on above: Order Comment: 109.1 Result Comment: IG% - Immature Granulocytes (promyelocytes, myelocytes andmetamyelocytes) > 1% indicates that a LEFT SHIFT is Present. Performed By: #### L 100.0100 ####[facility] [address] [place], [address] Lymphocytes/100 WBC (Bld) 26.0 % Normal 19-41 [facility] Comment on above: Order Comment: 109.1 Performed By: #### L 100.0100 ####[facility] [address] [place], [address] MCH (RBC) [Entitic mass] 29.6 pg Normal 27.0-32.0 [facility] Comment on above: Order Comment: 109.1 Performed By: #### L 100.0100 ####[facility] [address] [place], [address] MCHC (RBC) [Mass/Vol] 32.3 g/dL Normal 32-36 [facility] Comment on above: Order Comment: 109.1 Performed By: #### L 100.0100 ####[facility] [address] [place], [address] MCV (RBC) [Entitic vol] 91.8 fL Normal 80-94 [facility] Comment on above: Order Comment: 109.1 Performed By: #### L 100.0100 ####[facility] [address] [place], [address] Monocytes/100 WBC (Bld) 7.8 % Normal 0-10 [facility] Comment on above: Order Comment: 109.1 Performed By: #### L 100.0100 ####[facility] [address] [place], [address] Neutrophils/100 WBC (Bld) 64.9 % Normal 47-70 [facility] Comment on above: Order Comment: 109.1 Performed By: #### L 100.0100 ####[facility] [address] [place], [address] Nucleated RBC (Bld) [#/Vol] 0 10*3/uL Normal 0-5 [facility] Comment on above: Order Comment: 109.1 Performed By: #### L 100.0100 ####[facility] [address] [place], [address] Platelet mean volume (Bld) [Entitic vol] 10.8 fL Normal 6.2-12.0 [facility] Comment on above: Order Comment: 109.1 Performed By: #### L 100.0100 ####[facility] [address] [place], [address] Platelets (Bld) [#/Vol] 208 10*3/uL Normal 150-450 [facility] Comment on above: Order Comment: 109.1 Performed By: #### L 100.0100 ####[facility] [address] [place], [address] RBC (Bld) [#/Vol] 4.49 10*6/uL Low 4.6-6.2 [facility] Comment on above: Order Comment: 109.1 Performed By: #### L 100.0100 ####[facility] [address] [place], [address] RDW SD 42.4 fl Normal 35.1-43.9 [facility] Comment on above: Order Comment: 109.1 Performed By: #### L 100.0100 ####[facility] [address] [place], [place], [address] WBC (Bld) [#/Vol] 8.7 10*3/uL Normal 4.4-11.0 [facility] Comment on above: Order Comment: 109.1 Performed By: #### L 100.0100 ####[facility] [address] [place], [place], [address] Eosinophil percentageOrdered By: Renard Burgos on 04-08-2024 Eosinophils/100 WBC (Bld) 0.5 % 0-5 [facility] Erythrocyte distribution wid th ratioOrdered By: Renard Burgos on 04-08-2024 Erythrocyte distribution width (RBC) [Ratio] 12.6 % 11.6-14.6 [facility] Erythrocyte distribution wid th standard deviationOrdered By: Renard Burgos on 04-08-2024 Erythrocyte distribution width (RBC) [Entitic vol] 42.4 fL 35.1-43.9 [facility] Hematocrit Auto (Bld) [Volum e fraction]Ordered By: Renard Burgos on 04-08-2024 Hematocrit (Bld) [Volume fraction] 41.2 % 40-54 [facility] Hemoglobin measurementOrdere d By: Renard Burgos on 04-08-2024 Hemoglobin (Bld) [Mass/Vol] 13.3 g/dL 13.0-16.5 [facility] Immature granulocytes/100 WB C Auto (Bld)Ordered By: Renard Burgos on 04-08-2024 Immature granulocytes/100 WBC (Bld) 0.200 % 0.0-0.9 [facility] Comment on above: IG% - Immature Granu locytes (promyelocytes, myelocytes and metamyelocytes) > 1% indicates that a LEFT SHIFT is Present. Lymphocytes Auto (Unsp spec) [#/Vol]Ordered By: Renard Burgos on 04-08-2024 Lymphocytes (Bld) [#/Vol] 2.27 10*3/uL 0.83-4.51 [facility] Lymphocytes/100 WBC Auto (Un sp spec)Ordered By: Renard Burgos on 04-08-2024 Lymphocytes/100 WBC (Bld) 26.0 % 19-41 [facility] MCV (mean corpuscular volume ) determinationOrdered By: Renard Burgos on 04-08-2024 MCV (RBC) [Entitic vol] 91.8 fL 80-94 [facility] Mean corpuscular hemoglobin (MCH) determinationOrdered By: Renard Burgos on 04-08-2024 MCH (RBC) [Entitic mass] 29.6 pg 27.0-32.0 [facility] Mean corpuscular hemoglobin concentration (MCHC) determinationOrdered By: Renard Burgos on 04-08-2024 MCHC (RBC) [Mass/Vol] 32.3 g/dL 32-36 [facility] Mean platelet volume determi nationOrdered By: Renard Burgos on 04-08-2024 Platelet mean volume (Bld) [Entitic vol] 10.8 fL 6.2-12.0 [facility] Monocyte percentageOrdered B y: Renard Burgos on 04-08-2024 Monocytes/100 WBC (Bld) 7.8 % 0-10 [facility] Neutrophil percentageOrdered By: Renard Burgos on 04-08-2024 Neutrophils/100 WBC (Bld) 64.9 % 47-70 [facility] Nucleated red blood cell per centageOrdered By: Renard Burgos on 04-08-2024 Nucleated RBC/100 WBC (Bld) [Ratio] 0 % 0-5 [facility] Platelet countOrdered By: Garrick Bhatt on 04-08-2024 Platelets (Bld) [#/Vol] 208 10*3/uL 150-450 [facility] RBC Auto (Bld) [#/Vol]Ordere d By: Renard Burgos on 04-08-2024 RBC (Bld) [#/Vol] 4.49 10*6/uL Low 4.6-6.2 [facility] White blood cell (WBC) count Ordered By: Renard Burgos on 04-08-2024 WBC (Bld) [#/Vol] 8.7 10*3/uL 4.4-11.0 [facility] Absolute neutrophil countOrd ered By: Renard Burgos on 04-01-2024 Neutrophils (Bld) [#/Vol] 7.1 10*3/uL 2.0-7.7 [facility] Basophil percentageOrdered B y: Renard Burgos on 04-01-2024 Basophils/100 WBC (Bld) 0.4 % 0-1 [facility] CBC W/Diff, Automatedon Absolute Lymph 1.97 X10 3/uL Normal 0.83-4.51 [facility] Comment on above: Order Comment: 109-1 Performed By: #### L 100.0100 ####[facility] [address] [place], [address] Absolute Neut 7.1 X10 3/uL Normal 2.0-7.7 [facility] Comment on above: Order Comment: 109-1 Performed By: #### L 100.0100 ####[facility] [address] [place], [address] Basophils/100 WBC (Bld) 0.4 % Normal 0-1 [facility] Comment on above: Order Comment: 109-1 Performed By: #### L 100.0100 ####[facility] [address] [place], [address] Eosinophils/100 WBC (Bld) 0.4 % Normal 0-5 [facility] Comment on above: Order Comment: 109-1 Performed By: #### L 100.0100 ####[facility] [address] [place], [address] Erythrocyte distribution width (RBC) [Ratio] 12.6 % Normal 11.6-14.6 [facility] Comment on above: Order Comment: 109-1 Performed By: #### L 100.0100 ####[facility] [address] [place], [address] Hematocrit (Bld) [Volume fraction] 41.7 % Normal 40-54 [facility] Comment on above: Order Comment: 109-1 Performed By: #### L 100.0100 ####[facility] [address] [place], [address] Hemoglobin (Bld) [Mass/Vol] 13.6 g/dL Normal 13.0-16.5 [facility] Comment on above: Order Comment: 109-1 Performed By: #### L 100.0100 ####[facility] [address] [place], [address] IG% 0.300 Normal 0.0-0.9 [facility] Comment on above: Order Comment: 109-1 Result Comment: IG% - Immature Granulocytes (promyelocytes, myelocytes andmetamyelocytes) > 1% indicates that a LEFT SHIFT is Present. Performed By: #### L 100.0100 ####[facility] [address] [place], [address] Lymphocytes/100 WBC (Bld) 20.0 % Normal 19-41 [facility] Comment on above: Order Comment: 109-1 Performed By: #### L 100.0100 ####[facility] [address] [place], [address] MCH (RBC) [Entitic mass] 29.7 pg Normal 27.0-32.0 [facility] Comment on above: Order Comment: 109-1 Performed By: #### L 100.0100 ####[facility] [address] [place], [address] MCHC (RBC) [Mass/Vol] 32.6 g/dL Normal 32-36 [facility] Comment on above: Order Comment: 109-1 Performed By: #### L 100.0100 ####[facility] [address] [place], [address] MCV (RBC) [Entitic vol] 91.0 fL Normal 80-94 [facility] Comment on above: Order Comment: 109-1 Performed By: #### L 100.0100 ####[facility] [address] [place], [address] Monocytes/100 WBC (Bld) 7.1 % Normal 0-10 [facility] Comment on above: Order Comment: 109-1 Performed By: #### L 100.0100 ####[facility] [address] [place], [address] Neutrophils/100 WBC (Bld) 71.8 % High 47-70 [facility] Comment on above: Order Comment: 109-1 Performed By: #### L 100.0100 ####[facility] [address] [place], [address] Nucleated RBC (Bld) [#/Vol] 0 10*3/uL Normal 0-5 [facility] Comment on above: Order Comment: 109-1 Performed By: #### L 100.0100 ####[facility] [address] [place], [address] Platelet mean volume (Bld) [Entitic vol] 11.3 fL Normal 6.2-12.0 [facility] Comment on above: Order Comment: 109-1 Performed By: #### L 100.0100 ####[facility] [address] [place], [address] Platelets (Bld) [#/Vol] 195 10*3/uL Normal 150-450 [facility] Comment on above: Order Comment: 109-1 Performed By: #### L 100.0100 ####[facility] [address] [place], [address] RBC (Bld) [#/Vol] 4.58 10*6/uL Low 4.6-6.2 [facility] Comment on above: Order Comment: 109-1 Performed By: #### L 100.0100 ####[facility] [address] [place], [address] RDW SD 41.2 fl Normal 35.1-43.9 [facility] Comment on above: Order Comment: 109-1 Performed By: #### L 100.0100 ####[facility] [address] [place], [address] WBC (Bld) [#/Vol] 9.8 10*3/uL Normal 4.4-11.0 [facility] Comment on above: Order Comment: 109-1 Performed By: #### L 100.0100 ####[facility] [address] [place], [address] Eosinophil percentageOrdered By: Renrad Burgos on 04-01-2024 Eosinophils/100 WBC (Bld) 0.4 % 0-5 [facility] Erythrocyte distribution wid th ratioOrdered By: Renard Burgos on 04-01-2024 Erythrocyte distribution width (RBC) [Ratio] 12.6 % 11.6-14.6 [facility] Erythrocyte distribution wid th standard deviationOrdered By: Renard Burgos on 04-01-2024 Erythrocyte distribution width (RBC) [Entitic vol] 41.2 fL 35.1-43.9 [facility] Hematocrit Auto (Bld) [Volum e fraction]Ordered By: Renard Burgos on 04-01-2024 Hematocrit (Bld) [Volume fraction] 41.7 % 40-54 [facility] Hemoglobin measurementOrdere d By: Renard Burgos on 04-01-2024 Hemoglobin (Bld) [Mass/Vol] 13.6 g/dL 13.0-16.5 [facility] Immature granulocytes/100 WB C Auto (Bld)Ordered By: Renard Burgos on 04-01-2024 Immature granulocytes/100 WBC (Bld) 0.300 % 0.0-0.9 [facility] Comment on above: IG% - Immature Granu locytes (promyelocytes, myelocytes and metamyelocytes) > 1% indicates that a LEFT SHIFT is Present. Lymphocytes Auto (Unsp spec) [#/Vol]Ordered By: Renard Burgos on 04-01-2024 Lymphocytes (Bld) [#/Vol] 1.97 10*3/uL 0.83-4.51 [facility] Lymphocytes/100 WBC Auto (Un sp spec)Ordered By: Renard Burgos on 04-01-2024 Lymphocytes/100 WBC (Bld) 20.0 % 19-41 [facility] MCV (mean corpuscular volume ) determinationOrdered By: Renard Burgos on 04-01-2024 MCV (RBC) [Entitic vol] 91.0 fL 80-94 [facility] Mean corpuscular hemoglobin (MCH) determinationOrdered By: Renard Burgos on 04-01-2024 MCH (RBC) [Entitic mass] 29.7 pg 27.0-32.0 [facility] Mean corpuscular hemoglobin concentration (MCHC) determinationOrdered By: Renard Burgos on 04-01-2024 MCHC (RBC) [Mass/Vol] 32.6 g/dL 32-36 [facility] Mean platelet volume determi nationOrdered By: Renard Burgos on 04-01-2024 Platelet mean volume (Bld) [Entitic vol] 11.3 fL 6.2-12.0 [facility] Monocyte percentageOrdered B y: Renard Burgos on 04-01-2024 Monocytes/100 WBC (Bld) 7.1 % 0-10 [facility] Neutrophil percentageOrdered By: Renard Burgos on 04-01-2024 Neutrophils/100 WBC (Bld) 71.8 % High 47-70 [facility] Nucleated red blood cell per centageOrdered By: Renard Burgos on 04-01-2024 Nucleated RBC/100 WBC (Bld) [Ratio] 0 % 0-5 [facility] Platelet countOrdered By: Garrick Bhatt on 04-01-2024 Platelets (Bld) [#/Vol] 195 10*3/uL 150-450 [facility] RBC Auto (Bld) [#/Vol]Ordere d By: Renard Burgos on 04-01-2024 RBC (Bld) [#/Vol] 4.58 10*6/uL Low 4.6-6.2 [facility] White blood cell (WBC) count Ordered By: Renard Burgos on 04-01-2024 WBC (Bld) [#/Vol] 9.8 10*3/uL 4.4-11.0 [facility] Absolute neutrophil countOrd ered By: Renard Brugos on 03-25-2024 Neutrophils (Bld) [#/Vol] 5.4 10*3/uL 2.0-7.7 [facility] Basophil percentageOrdered B y: Renard Burgos on 03-25-2024 Basophils/100 WBC (Bld) 0.5 % 0-1 [facility] CBC W/Diff, Automatedon 03-02 Absolute Lymph 2.14 X10 3/uL Normal 0.83-4.51 [facility] Comment on above: Order Comment: 109-1 Performed By: #### L 100.0100 ####[facility] [address] [place], [address] Absolute Neut 5.4 X10 3/uL Normal 2.0-7.7 [facility] Comment on above: Order Comment: 109-1 Performed By: #### L 100.0100 ####[facility] [address] [place], [address] Basophils/100 WBC (Bld) 0.5 % Normal 0-1 [facility] Comment on above: Order Comment: 109-1 Performed By: #### L 100.0100 ####[facility] [address] [place], [address] Eosinophils/100 WBC (Bld) 0.7 % Normal 0-5 [facility] Comment on above: Order Comment: 109-1 Performed By: #### L 100.0100 ####[facility] [address] [place], [address] Erythrocyte distribution width (RBC) [Ratio] 12.7 % Normal 11.6-14.6 [facility] Comment on above: Order Comment: 109-1 Performed By: #### L 100.0100 ####[facility] [address] [place], [address] Hematocrit (Bld) [Volume fraction] 42.3 % Normal 40-54 [facility] Comment on above: Order Comment: 109-1 Performed By: #### L 100.0100 ####[facility] [address] [place], [address] Hemoglobin (Bld) [Mass/Vol] 13.7 g/dL Normal 13.0-16.5 [facility] Comment on above: Order Comment: 109-1 Performed By: #### L 100.0100 ####[facility] [address] [place], [address] IG% 0.500 Normal 0.0-0.9 [facility] Comment on above: Order Comment: 109-1 Result Comment: IG% - Immature Granulocytes (promyelocytes, myelocytes andmetamyelocytes) > 1% indicates that a LEFT SHIFT is Present. Performed By: #### L 100.0100 ####[facility] [address] [place], [address] Lymphocytes/100 WBC (Bld) 25.8 % Normal 19-41 [facility] Comment on above: Order Comment: 109-1 Performed By: #### L 100.0100 ####[facility] [address] [place], [address] MCH (RBC) [Entitic mass] 29.2 pg Normal 27.0-32.0 [facility] Comment on above: Order Comment: 109-1 Performed By: #### L 100.0100 ####[facility] [address] [place], [address] MCHC (RBC) [Mass/Vol] 32.4 g/dL Normal 32-36 [facility] Comment on above: Order Comment: 109-1 Performed By: #### L 100.0100 ####[facility] [address] [place], [address] MCV (RBC) [Entitic vol] 90.2 fL Normal 80-94 [facility] Comment on above: Order Comment: 109-1 Performed By: #### L 100.0100 ####[facility] [address] [place], [address] Monocytes/100 WBC (Bld) 8.0 % Normal 0-10 [facility] Comment on above: Order Comment: 109-1 Performed By: #### L 100.0100 ####[facility] [address] [place], [address] Neutrophils/100 WBC (Bld) 64.5 % Normal 47-70 [facility] Comment on above: Order Comment: 109-1 Performed By: #### L 100.0100 ####[facility] [address] [place], [address] Nucleated RBC (Bld) [#/Vol] 0 10*3/uL Normal 0-5 [facility] Comment on above: Order Comment: 109-1 Performed By: #### L 100.0100 ####[facility] [address] [place], [address] Platelet mean volume (Bld) [Entitic vol] 11.2 fL Normal 6.2-12.0 [facility] Comment on above: Order Comment: 109-1 Performed By: #### L 100.0100 ####[facility] [address] [place], [address] Platelets (Bld) [#/Vol] 204 10*3/uL Normal 150-450 [facility] Comment on above: Order Comment: 109-1 Performed By: #### L 100.0100 ####[facility] [address] [place], [address] RBC (Bld) [#/Vol] 4.69 10*6/uL Normal 4.6-6.2 [facility] Comment on above: Order Comment: 109-1 Performed By: #### L 100.0100 ####[facility] [address] [place], [address] RDW SD 41.8 fl Normal 35.1-43.9 [facility] Comment on above: Order Comment: 109-1 Performed By: #### L 100.0100 ####[facility] [address] [place], [address] WBC (Bld) [#/Vol] 8.3 10*3/uL Normal 4.4-11.0 [facility] Comment on above: Order Comment: 109-1 Performed By: #### L 100.0100 ####[facility] [address] [place], [address] Eosinophil percentageOrdered By: Renard Burgos on 03-25-2024 Eosinophils/100 WBC (Bld) 0.7 % 0-5 [facility] Erythrocyte distribution wid th ratioOrdered By: Renard Burgos on 03-25-2024 Erythrocyte distribution width (RBC) [Ratio] 12.7 % 11.6-14.6 [facility] Erythrocyte distribution wid th standard deviationOrdered By: Renard Burgos on 03-25-2024 Erythrocyte distribution width (RBC) [Entitic vol] 41.8 fL 35.1-43.9 [facility] Hematocrit Auto (Bld) [Volum e fraction]Ordered By: Renard Burgos on 03-25-2024 Hematocrit (Bld) [Volume fraction] 42.3 % 40-54 [facility] Hemoglobin measurementOrdere d By: Renard Burgos on 03-25-2024 Hemoglobin (Bld) [Mass/Vol] 13.7 g/dL 13.0-16.5 [facility] Immature granulocytes/100 WB C Auto (Bld)Ordered By: Renard Burgos on 03-25-2024 Immature granulocytes/100 WBC (Bld) 0.500 % 0.0-0.9 [facility] Comment on above: IG% - Immature Granu locytes (promyelocytes, myelocytes and metamyelocytes) > 1% indicates that a LEFT SHIFT is Present. Lymphocytes Auto (Unsp spec) [#/Vol]Ordered By: Renard Burgos on 03-25-2024 Lymphocytes (Bld) [#/Vol] 2.14 10*3/uL 0.83-4.51 [facility] Lymphocytes/100 WBC Auto (Un sp spec)Ordered By: Renard Burgos on 03-25-2024 Lymphocytes/100 WBC (Bld) 25.8 % 19-41 [facility] MCV (mean corpuscular volume ) determinationOrdered By: Renard Burgos on 03-25-2024 MCV (RBC) [Entitic vol] 90.2 fL 80-94 [facility] Mean corpuscular hemoglobin (MCH) determinationOrdered By: Renard Burgos on 03-25-2024 MCH (RBC) [Entitic mass] 29.2 pg 27.0-32.0 [facility] Mean corpuscular hemoglobin concentration (MCHC) determinationOrdered By: Renard Burgos on 03-25-2024 MCHC (RBC) [Mass/Vol] 32.4 g/dL 32-36 [facility] Mean platelet volume determi nationOrdered By: Renard Burgos on 03-25-2024 Platelet mean volume (Bld) [Entitic vol] 11.2 fL 6.2-12.0 [facility] Monocyte percentageOrdered B y: Renard Burgos on 03-25-2024 Monocytes/100 WBC (Bld) 8.0 % 0-10 [facility] Neutrophil percentageOrdered By: Renard Burgos on 03-25-2024 Neutrophils/100 WBC (Bld) 64.5 % 47-70 [facility] Nucleated red blood cell per centageOrdered By: Renard Burgos on 03-25-2024 Nucleated RBC/100 WBC (Bld) [Ratio] 0 % 0-5 [facility] Platelet countOrdered By: Garrick Bhatt on 03-25-2024 Platelets (Bld) [#/Vol] 204 10*3/uL 150-450 [facility] RBC Auto (Bld) [#/Vol]Ordere d By: Renard Burgos on 03-25-2024 RBC (Bld) [#/Vol] 4.69 10*6/uL 4.6-6.2 [facility] White blood cell (WBC) count Ordered By: Renard Burgos on 03-25-2024 WBC (Bld) [#/Vol] 8.3 10*3/uL 4.4-11.0 [facility] Absolute neutrophil countOrd ered By: Renard Burgos on 03-18-2024 Neutrophils (Bld) [#/Vol] 5.2 10*3/uL 2.0-7.7 [facility] Basophil percentageOrdered B y: Renard Burgos on 03-18-2024 Basophils/100 WBC (Bld) 0.6 % 0-1 [facility] CBC W/Diff, Automatedon 03-01 Absolute Lymph 2.23 X10 3/uL Normal 0.83-4.51 [facility] Comment on above: Order Comment: 109.1 Performed By: #### L 100.0100 ####[facility] [address] [place], [address] Absolute Neut 5.2 X10 3/uL Normal 2.0-7.7 [facility] Comment on above: Order Comment: 109.1 Performed By: #### L 100.0100 ####[facility] [address] [place], [address] Basophils/100 WBC (Bld) 0.6 % Normal 0-1 [facility] Comment on above: Order Comment: 109.1 Performed By: #### L 100.0100 ####[facility] [address] [place], [address] Eosinophils/100 WBC (Bld) 0.7 % Normal 0-5 [facility] Comment on above: Order Comment: 109.1 Performed By: #### L 100.0100 ####[facility] [address] [place], [address] Erythrocyte distribution width (RBC) [Ratio] 12.8 % Normal 11.6-14.6 [facility] Comment on above: Order Comment: 109.1 Performed By: #### L 100.0100 ####[facility] [address] [place], [address] Hematocrit (Bld) [Volume fraction] 42.0 % Normal 40-54 [facility] Comment on above: Order Comment: 109.1 Performed By: #### L 100.0100 ####[facility] [address] [place], [address] Hemoglobin (Bld) [Mass/Vol] 13.6 g/dL Normal 13.0-16.5 [facility] Comment on above: Order Comment: 109.1 Performed By: #### L 100.0100 ####[facility] [address] [place], [address] IG% 0.500 Normal 0.0-0.9 [facility] Comment on above: Order Comment: 109.1 Result Comment: IG% - Immature Granulocytes (promyelocytes, myelocytes andmetamyelocytes) > 1% indicates that a LEFT SHIFT is Present. Performed By: #### L 100.0100 ####[facility] [address] [place], [address] Lymphocytes/100 WBC (Bld) 27.0 % Normal 19-41 [facility] Comment on above: Order Comment: 109.1 Performed By: #### L 100.0100 ####[facility] [address] [place], [address] MCH (RBC) [Entitic mass] 29.5 pg Normal 27.0-32.0 [facility] Comment on above: Order Comment: 109.1 Performed By: #### L 100.0100 ####[facility] [address] [place], [address] MCHC (RBC) [Mass/Vol] 32.4 g/dL Normal 32-36 [facility] Comment on above: Order Comment: 109.1 Performed By: #### L 100.0100 ####[facility] [address] [place], [address] MCV (RBC) [Entitic vol] 91.1 fL Normal 80-94 [facility] Comment on above: Order Comment: 109.1 Performed By: #### L 100.0100 ####[facility] [address] [place], [address] Monocytes/100 WBC (Bld) 8.5 % Normal 0-10 [facility] Comment on above: Order Comment: 109.1 Performed By: #### L 100.0100 ####[facility] [address] [place], [address] Neutrophils/100 WBC (Bld) 62.7 % Normal 47-70 [facility] Comment on above: Order Comment: 109.1 Performed By: #### L 100.0100 ####[facility] [address] [place], [address] Nucleated RBC (Bld) [#/Vol] 0 10*3/uL Normal 0-5 [facility] Comment on above: Order Comment: 109.1 Performed By: #### L 100.0100 ####[facility] [address] [place], [address] Platelet mean volume (Bld) [Entitic vol] 10.8 fL Normal 6.2-12.0 [facility] Comment on above: Order Comment: 109.1 Performed By: #### L 100.0100 ####[facility] [address] [place], [address] Platelets (Bld) [#/Vol] 211 10*3/uL Normal 150-450 [facility] Comment on above: Order Comment: 109.1 Performed By: #### L 100.0100 ####[facility] [address] [place], [address] RBC (Bld) [#/Vol] 4.61 10*6/uL Normal 4.6-6.2 [facility] Comment on above: Order Comment: 109.1 Performed By: #### L 100.0100 ####[facility] [address] [place], [address] RDW SD 42.3 fl Normal 35.1-43.9 [facility] Comment on above: Order Comment: 109.1 Performed By: #### L 100.0100 ####[facility] [address] [place], [address] WBC (Bld) [#/Vol] 8.3 10*3/uL Normal 4.4-11.0 [facility] Comment on above: Order Comment: 109.1 Performed By: #### L 100.0100 ####[facility] [address] [place], [address] Eosinophil percentageOrdered By: Renard Burgos on 03-18-2024 Eosinophils/100 WBC (Bld) 0.7 % 0-5 [facility] Erythrocyte distribution wid th ratioOrdered By: Renard Burgos on 03-18-2024 Erythrocyte distribution width (RBC) [Ratio] 12.8 % 11.6-14.6 [facility] Erythrocyte distribution wid th standard deviationOrdered By: Renard Burgos on 03-18-2024 Erythrocyte distribution width (RBC) [Entitic vol] 42.3 fL 35.1-43.9 [facility] Hematocrit Auto (Bld) [Volum e fraction]Ordered By: Renard Burgos on 03-18-2024 Hematocrit (Bld) [Volume fraction] 42.0 % 40-54 [facility] Hemoglobin measurementOrdere d By: Renard Burgos on 03-18-2024 Hemoglobin (Bld) [Mass/Vol] 13.6 g/dL 13.0-16.5 [facility] Immature granulocytes/100 WB C Auto (Bld)Ordered By: Renard Burgos on 03-18-2024 Immature granulocytes/100 WBC (Bld) 0.500 % 0.0-0.9 [facility] Comment on above: IG% - Immature Granu locytes (promyelocytes, myelocytes and metamyelocytes) > 1% indicates that a LEFT SHIFT is Present. Lymphocytes Auto (Unsp spec) [#/Vol]Ordered By: Renard Burgos on 03-18-2024 Lymphocytes (Bld) [#/Vol] 2.23 10*3/uL 0.83-4.51 [facility] Lymphocytes/100 WBC Auto (Un sp spec)Ordered By: Renard Burgos on 03-18-2024 Lymphocytes/100 WBC (Bld) 27.0 % 19-41 [facility] MCV (mean corpuscular volume ) determinationOrdered By: Renard Burgos on 03-18-2024 MCV (RBC) [Entitic vol] 91.1 fL 80-94 [facility] Mean corpuscular hemoglobin (MCH) determinationOrdered By: Renard Burgos on 03-18-2024 MCH (RBC) [Entitic mass] 29.5 pg 27.0-32.0 [facility] Mean corpuscular hemoglobin concentration (MCHC) determinationOrdered By: Renard Burgos on 03-18-2024 MCHC (RBC) [Mass/Vol] 32.4 g/dL 32-36 [facility] Mean platelet volume determi nationOrdered By: Renard Burgos on 03-18-2024 Platelet mean volume (Bld) [Entitic vol] 10.8 fL 6.2-12.0 [facility] Monocyte percentageOrdered B y: Renard Burgos on 03-18-2024 Monocytes/100 WBC (Bld) 8.5 % 0-10 [facility] Neutrophil percentageOrdered By: Renard Burgos on 03-18-2024 Neutrophils/100 WBC (Bld) 62.7 % 47-70 [facility] Nucleated red blood cell per centageOrdered By: Renard Burgos on 03-18-2024 Nucleated RBC/100 WBC (Bld) [Ratio] 0 % 0-5 [facility] Platelet countOrdered By: Garrick Bhatt on 03-18-2024 Platelets (Bld) [#/Vol] 211 10*3/uL 150-450 [facility] RBC Auto (Bld) [#/Vol]Ordere d By: Renard Burgos on 03-18-2024 RBC (Bld) [#/Vol] 4.61 10*6/uL 4.6-6.2 [facility] White blood cell (WBC) count Ordered By: Renard Burgos on 03-18-2024 WBC (Bld) [#/Vol] 8.3 10*3/uL 4.4-11.0 [facility] Absolute neutrophil countOrd ered By: Renard Burgos on 03-11-2024 Neutrophils (Bld) [#/Vol] 6.2 10*3/uL 2.0-7.7 [facility] Automated blood erythrocyte countOrdered By: Renard Burgos on 03-11-2024 RBC (Bld) [#/Vol] 4.54 10*6/uL Low 4.6-6.2 [facility] Comment on above: Order Comment: 109.1 Performed By: #### L 100.0100 ####[facility] [address] [place], [place], [address] Automated blood hematocrit ( percentage)Ordered By: Renard Burgos on 03-11-2024 Hematocrit (Bld) [Volume fraction] 41.5 % Normal 40-54 [facility] Comment on above: Order Comment: 109.1 Performed By: #### L 100.0100 ####[facility] [address] [place], [place], [address] Automated lymphocyte count a s percentage of total leukocytesOrdered By: Renard Burgos on 03-11-2024 Lymphocytes/100 WBC (Bld) 25.6 % Normal 19-41 [facility] Comment on above: Order Comment: 109.1 Performed By: #### L 100.0100 ####[facility] [address] [place], [place], [address] Basophil percentageOrdered B y: Renard Burgos on 03-11-2024 Basophils/100 WBC (Bld) 0.5 % Normal 0-1 [facility] Comment on above: Order Comment: 109.1 Performed By: #### L 100.0100 ####[facility] [address] [place], [place], [address] CBC W/Diff, Automatedon 03-01 Absolute Lymph 2.50 X10 3/uL Normal 0.83-4.51 [facility] Comment on above: Order Comment: 109.1 Performed By: #### L 100.0100 ####[facility] [address] [place], [address] Absolute Neut 6.2 X10 3/uL Normal 2.0-7.7 [facility] Comment on above: Order Comment: 109.1 Performed By: #### L 100.0100 ####[facility] [address] [place], [address] IG% 0.500 Normal 0.0-0.9 [facility] Comment on above: Order Comment: 109.1 Result Comment: IG% - Immature Granulocytes (promyelocytes, myelocytes andmetamyelocytes) > 1% indicates that a LEFT SHIFT is Present. Performed By: #### L 100.0100 ####[facility] [address] [place], [address] Nucleated RBC (Bld) [#/Vol] 0 10*3/uL Normal 0-5 [facility] Comment on above: Order Comment: 109.1 Performed By: #### L 100.0100 ####[facility] [address] [place], [address] RDW SD 41.5 fl Normal 35.1-43.9 [facility] Comment on above: Order Comment: 109.1 Performed By: #### L 100.0100 ####[facility] [address] [place], [address] Eosinophil percentageOrdered By: Renard Burgos on 03-11-2024 Eosinophils/100 WBC (Bld) 0.6 % Normal 0-5 [facility] Comment on above: Order Comment: 109.1 Performed By: #### L 100.0100 ####[facility] [address] [place], [address] Erythrocyte distribution wid th ratioOrdered By: Renard Burgos on 03-11-2024 Erythrocyte distribution width (RBC) [Ratio] 12.7 % Normal 11.6-14.6 [facility] Comment on above: Order Comment: 109.1 Performed By: #### L 100.0100 ####[facility] [address] [place], [place], [address] Erythrocyte distribution wid th standard deviationOrdered By: Renard Burgos on 03-11-2024 Erythrocyte distribution width (RBC) [Entitic vol] 41.5 fL 35.1-43.9 [facility] Hemoglobin measurementOrdere d By: Renard Burgos on 03-11-2024 Hemoglobin (Bld) [Mass/Vol] 13.8 g/dL Normal 13.0-16.5 [facility] Comment on above: Order Comment: 109.1 Performed By: #### L 100.0100 ####[facility] [address] [place], [address] Immature granulocytes/100 WB C Auto (Bld)Ordered By: Renard Burgos on 03-11-2024 Immature granulocytes/100 WBC (Bld) 0.500 % 0.0-0.9 [facility] Comment on above: IG% - Immature Granu locytes (promyelocytes, myelocytes and metamyelocytes) > 1% indicates that a LEFT SHIFT is Present. Lymphocytes Auto (Unsp spec) [#/Vol]Ordered By: Renard Burgos on 03-11-2024 Lymphocytes (Bld) [#/Vol] 2.50 10*3/uL 0.83-4.51 [facility] MCV (mean corpuscular volume ) determinationOrdered By: Renard Burgos on 03-11-2024 MCV (RBC) [Entitic vol] 91.4 fL Normal 80-94 [facility] Comment on above: Order Comment: 109.1 Performed By: #### L 100.0100 ####[facility] [address] [place], [address] Mean corpuscular hemoglobin (MCH) determinationOrdered By: Renard Burgos on 03-11-2024 MCH (RBC) [Entitic mass] 30.4 pg Normal 27.0-32.0 [facility] Comment on above: Order Comment: 109.1 Performed By: #### L 100.0100 ####[facility] [address] [place], [address] Mean corpuscular hemoglobin concentration (MCHC) determinationOrdered By: Renard Burgos on 03-11-2024 MCHC (RBC) [Mass/Vol] 33.3 g/dL Normal 32-36 [facility] Comment on above: Order Comment: 109.1 Performed By: #### L 100.0100 ####[facility] [address] [place], [address] Mean platelet volume determi nationOrdered By: Renard Burgos on 03-11-2024 Platelet mean volume (Bld) [Entitic vol] 11.0 fL Normal 6.2-12.0 [facility] Comment on above: Order Comment: 109.1 Performed By: #### L 100.0100 ####[facility] [address] [place], [address] Monocyte percentageOrdered B y: Renard Burgos on 03-11-2024 Monocytes/100 WBC (Bld) 9.0 % Normal 0-10 [facility] Comment on above: Order Comment: 109.1 Performed By: #### L 100.0100 ####[facility] [address] [place], [address] Neutrophil percentageOrdered By: Renard Burgos on 03-11-2024 Neutrophils/100 WBC (Bld) 63.8 % Normal 47-70 [facility] Comment on above: Order Comment: 109.1 Performed By: #### L 100.0100 ####[facility] [address] [place], [address] Nucleated red blood cell per centageOrdered By: Renard Burgos on 03-11-2024 Nucleated RBC/100 WBC (Bld) [Ratio] 0 % 0-5 [facility] Platelet countOrdered By: Garrick Bhatt on 03-11-2024 Platelets (Bld) [#/Vol] 220 10*3/uL Normal 150-450 [facility] Comment on above: Order Comment: 109.1 Performed By: #### L 100.0100 ####[facility] [address] [place], [address] White blood cell (WBC) count Ordered By: Renard Burgos on 03-11-2024 WBC (Bld) [#/Vol] 9.8 10*3/uL Normal 4.4-11.0 [facility] Comment on above: Order Comment: 109.1 Performed By: #### L 100.0100 ####[facility] [address] [place], [address] CBC W/Diff, Automatedon 11--2023 Absolute Lymph 1.99 X10 3/uL Normal 0.83-4.51 [facility] Comment on above: Order Comment: 109.1 Performed By: #### L 100.0100 ####[facility] [address] [place], [address] Absolute Neut 5.3 X10 3/uL Normal 2.0-7.7 [facility] Comment on above: Order Comment: 109.1 Performed By: #### L 100.0100 ####[facility] [address] [place], [address] Basophils/100 WBC (Bld) 0.6 % Normal 0-1 [facility] Comment on above: Order Comment: 109.1 Performed By: #### L 100.0100 ####[facility] [address] [place], [address] Eosinophils/100 WBC (Bld) 0.7 % Normal 0-5 [facility] Comment on above: Order Comment: 109.1 Performed By: #### L 100.0100 ####[facility] [address] [place], [address] Erythrocyte distribution width (RBC) [Ratio] 12.7 % Normal 11.6-14.6 [facility] Comment on above: Order Comment: 109.1 Performed By: #### L 100.0100 ####[facility] [address] [place], [address] Hematocrit (Bld) [Volume fraction] 42.1 % Normal 40-54 [facility] Comment on above: Order Comment: 109.1 Performed By: #### L 100.0100 ####[facility] [address] [place], [address] Hemoglobin (Bld) [Mass/Vol] 14.0 g/dL Normal 13.0-16.5 [facility] Comment on above: Order Comment: 109.1 Performed By: #### L 100.0100 ####[facility] [address] [place], [address] IG% 0.400 Normal 0.0-0.9 [facility] Comment on above: Order Comment: 109.1 Result Comment: IG% - Immature Granulocytes (promyelocytes, myelocytes andmetamyelocytes) > 1% indicates that a LEFT SHIFT is Present. Performed By: #### L 100.0100 ####[facility] [address] [place], [address] Lymphocytes/100 WBC (Bld) 24.5 % Normal 19-41 [facility] Comment on above: Order Comment: 109.1 Performed By: #### L 100.0100 ####[facility] [address] [place], [address] MCH (RBC) [Entitic mass] 30.2 pg Normal 27.0-32.0 [facility] Comment on above: Order Comment: 109.1 Performed By: #### L 100.0100 ####[facility] [address] [place], [address] MCHC (RBC) [Mass/Vol] 33.3 g/dL Normal 32-36 [facility] Comment on above: Order Comment: 109.1 Performed By: #### L 100.0100 ####[facility] [address] [place], [address] MCV (RBC) [Entitic vol] 90.7 fL Normal 80-94 [facility] Comment on above: Order Comment: 109.1 Performed By: #### L 100.0100 ####[facility] [address] [place], [address] Monocytes/100 WBC (Bld) 8.2 % Normal 0-10 [facility] Comment on above: Order Comment: 109.1 Performed By: #### L 100.0100 ####[facility] [address] [place], [address] Neutrophils/100 WBC (Bld) 65.6 % Normal 47-70 [facility] Comment on above: Order Comment: 109.1 Performed By: #### L 100.0100 ####[facility] [address] [place], [address] Nucleated RBC (Bld) [#/Vol] 0 10*3/uL Normal 0-5 [facility] Comment on above: Order Comment: 109.1 Performed By: #### L 100.0100 ####[facility] [address] [place], [address] Platelet mean volume (Bld) [Entitic vol] 11.0 fL Normal 6.2-12.0 [facility] Comment on above: Order Comment: 109.1 Performed By: #### L 100.0100 ####[facility] [address] [place], [address] Platelets (Bld) [#/Vol] 216 10*3/uL Normal 150-450 [facility] Comment on above: Order Comment: 109.1 Performed By: #### L 100.0100 ####[facility] [address] [place], [address] RBC (Bld) [#/Vol] 4.64 10*6/uL Normal 4.6-6.2 [facility] Comment on above: Order Comment: 109.1 Performed By: #### L 100.0100 ####[facility] [address] [place], [address] RDW SD 41.9 fl Normal 35.1-43.9 [facility] Comment on above: Order Comment: 109.1 Performed By: #### L 100.0100 ####[facility] [address] [place], [address] WBC (Bld) [#/Vol] 8.1 10*3/uL Normal 4.4-11.0 [facility] Comment on above: Order Comment: 109.1 Performed By: #### L 100.0100 ####[facility] [address] [place], [address] CBC W/Diff, Automatedon 10-2 8-2023 Absolute Lymph 2.15 X10 3/uL Normal 0.83-4.51 [facility] Comment on above: Order Comment: 109.1 Performed By: #### L 100.0100 ####[facility] [address] [place], [address] Absolute Neut 7.1 X10 3/uL Normal 2.0-7.7 [facility] Comment on above: Order Comment: 109.1 Performed By: #### L 100.0100 ####[facility] [address] [place], [address] Basophils/100 WBC (Bld) 0.4 % Normal 0-1 [facility] Comment on above: Order Comment: 109.1 Performed By: #### L 100.0100 ####[facility] [address] [place], [address] Eosinophils/100 WBC (Bld) 0.6 % Normal 0-5 [facility] Comment on above: Order Comment: 109.1 Performed By: #### L 100.0100 ####[facility] [address] [place], [address] Erythrocyte distribution width (RBC) [Ratio] 12.6 % Normal 11.6-14.6 [facility] Comment on above: Order Comment: 109.1 Performed By: #### L 100.0100 ####[facility] [address] [place], [address] Hematocrit (Bld) [Volume fraction] 40.2 % Normal 40-54 [facility] Comment on above: Order Comment: 109.1 Performed By: #### L 100.0100 ####[facility] [address] [place], [address] Hemoglobin (Bld) [Mass/Vol] 13.6 g/dL Normal 13.0-16.5 [facility] Comment on above: Order Comment: 109.1 Performed By: #### L 100.0100 ####[facility] [address] [place], [address] IG% 0.500 Normal 0.0-0.9 [facility] Comment on above: Order Comment: 109.1 Result Comment: IG% - Immature Granulocytes (promyelocytes, myelocytes andmetamyelocytes) > 1% indicates that a LEFT SHIFT is Present. Performed By: #### L 100.0100 ####[facility] [address] [place], [address] Lymphocytes/100 WBC (Bld) 20.9 % Normal 19-41 [facility] Comment on above: Order Comment: 109.1 Performed By: #### L 100.0100 ####[facility] [address] [place], [address] MCH (RBC) [Entitic mass] 30.6 pg Normal 27.0-32.0 [facility] Comment on above: Order Comment: 109.1 Performed By: #### L 100.0100 ####[facility] [address] [place], [address] MCHC (RBC) [Mass/Vol] 33.8 g/dL Normal 32-36 [facility] Comment on above: Order Comment: 109.1 Performed By: #### L 100.0100 ####[facility] [address] [place], [address] MCV (RBC) [Entitic vol] 90.5 fL Normal 80-94 [facility] Comment on above: Order Comment: 109.1 Performed By: #### L 100.0100 ####[facility] [address] [place], [address] Monocytes/100 WBC (Bld) 8.5 % Normal 0-10 [facility] Comment on above: Order Comment: 109.1 Performed By: #### L 100.0100 ####[facility] [address] [place], [address] Neutrophils/100 WBC (Bld) 69.1 % Normal 47-70 [facility] Comment on above: Order Comment: 109.1 Performed By: #### L 100.0100 ####[facility] [address] [place], [address] Nucleated RBC (Bld) [#/Vol] 0 10*3/uL Normal 0-5 [facility] Comment on above: Order Comment: 109.1 Performed By: #### L 100.0100 ####[facility] [address] [place], [address] Platelet mean volume (Bld) [Entitic vol] 11.2 fL Normal 6.2-12.0 [facility] Comment on above: Order Comment: 109.1 Performed By: #### L 100.0100 ####[facility] [address] [place], [address] Platelets (Bld) [#/Vol] 226 10*3/uL Normal 150-450 [facility] Comment on above: Order Comment: 109.1 Performed By: #### L 100.0100 ####[facility] [address] [place], [address] RBC (Bld) [#/Vol] 4.44 10*6/uL Low 4.6-6.2 [facility] Comment on above: Order Comment: 109.1 Performed By: #### L 100.0100 ####[facility] [address] [place], [address] RDW SD 41.5 fl Normal 35.1-43.9 [facility] Comment on above: Order Comment: 109.1 Performed By: #### L 100.0100 ####[facility] [address] [place], [address] WBC (Bld) [#/Vol] 10.3 10*3/uL Normal 4.4-11.0 [facility] Comment on above: Order Comment: 109.1 Performed By: #### L 100.0100 ####[facility] [address] [place], [address] CBC-Complete Blood Cnt No Di ffon 02-23-2024 Erythrocyte distribution width (RBC) [Ratio] 12.9 % Normal 11.6-14.6 [facility] Comment on above: Order Comment: 109-1 Performed By: #### L 100.0500, L500.4100, L500.4050 ####[facility] [address] [place], [address] Hematocrit (Bld) [Volume fraction] 41.6 % Normal 40-54 [facility] Comment on above: Order Comment: 109-1 Performed By: #### L 100.0500, L500.4100, L500.4050 ####[facility] [address] [place], [address] Hemoglobin (Bld) [Mass/Vol] 14.0 g/dL Normal 13.0-16.5 [facility] Comment on above: Order Comment: 109-1 Performed By: #### L 100.0500, L500.4100, L500.4050 ####[facility] [address] [place], [address] MCH (RBC) [Entitic mass] 30.6 pg Normal 27.0-32.0 [facility] Comment on above: Order Comment: 109-1 Performed By: #### L 100.0500, L500.4100, L500.4050 ####[facility] [address] [place], [address] MCHC (RBC) [Mass/Vol] 33.7 g/dL Normal 32-36 [facility] Comment on above: Order Comment: 109-1 Performed By: #### L 100.0500, L500.4100, L500.4050 ####[facility] [address] [place], [address] MCV (RBC) [Entitic vol] 91.0 fL Normal 80-94 [facility] Comment on above: Order Comment: 109-1 Performed By: #### L 100.0500, L500.4100, L500.4050 ####[facility] [address] [place], [address] Platelet mean volume (Bld) [Entitic vol] 11.5 fL Normal 6.2-12.0 [facility] Comment on above: Order Comment: 109-1 Performed By: #### L 100.0500, L500.4100, L500.4050 ####[facility] [address] [place], [address] Platelets (Bld) [#/Vol] 209 10*3/uL Normal 150-450 [facility] Comment on above: Order Comment: 109-1 Performed By: #### L 100.0500, L500.4100, L500.4050 ####[facility] [address] [place], [address] RBC (Bld) [#/Vol] 4.57 10*6/uL Low 4.6-6.2 [facility] Comment on above: Order Comment: 109-1 Performed By: #### L 100.0500, L500.4100, L500.4050 ####[facility] [address] [place], [address] RDW SD 42.4 fl Normal 35.1-43.9 [facility] Comment on above: Order Comment: 109-1 Performed By: #### L 100.0500, L500.4100, L500.4050 ####[facility] [address] [place], [address] WBC (Bld) [#/Vol] 8.4 10*3/uL Normal 4.4-11.0 [facility] Comment on above: Order Comment: 109-1 Performed By: #### L 100.0500, L500.4100, L500.4050 ####[facility] [address] [place], [address] Comprehensive Metabolic [facility] ilon 02-23-2024 Albumin [Mass/Vol] 3.1 g/dL Low 3.2-5.0 [facility] Comment on above: Order Comment: 109-1 Performed By: #### L 100.0500, L500.4100, L500.4050 ####[facility] [address] [place], [address] Albumin/Globulin [Mass ratio] 1.1 {ratio} Normal 0.9-2.4 [facility] Comment on above: Order Comment: 109-1 Performed By: #### L 100.0500, L500.4100, L500.4050 ####[facility] [address] [place], [address] ALK P 123 U/L High 45-117 [facility] Comment on above: Order Comment: 109-1 Performed By: #### L 100.0500, L500.4100, L500.4050 ####[facility] [address] [place], [address] ALT [Catalytic activity/Vol] 16 U/L Normal 16-61 [facility] Comment on above: Order Comment: 109-1 Performed By: #### L 100.0500, L500.4100, L500.4050 ####[facility] [address] [place], [address] AST [Catalytic activity/Vol] 10 U/L Low 15-37 [facility] Comment on above: Order Comment: 109-1 Performed By: #### L 100.0500, L500.4100, L500.4050 ####[facility] [address] [place], [address] Bilirubin [Mass/Vol] 0.50 mg/dL Normal 0.20-1.00 [facility] Comment on above: Order Comment: 109-1 Result Comment: For patients on eltrombopag therapy, use of Dimension [place] TBIL is not recommended. Performed By: #### L 100.0500, L500.4100, L500.4050 ####[facility] [address] [place], [address] BUN/CRE 24.9 RATIO High 10-20 [facility] Comment on above: Order Comment: 109-1 Performed By: #### L 100.0500, L500.4100, L500.4050 ####[facility] [address] [place], [address] CA,Total 8.5 mg/dL Normal 8.5-10.1 [facility] Comment on above: Order Comment: 109-1 Performed By: #### L 100.0500, L500.4100, L500.4050 ####[facility] [address] [place], [address] Chloride [Moles/Vol] 109 mmol/L High 98-107 [facility] Comment on above: Order Comment: 109-1 Performed By: #### L 100.0500, L500.4100, L500.4050 ####[facility] [address] [place], [address] CO2 [Moles/Vol] 27.0 mmol/L Normal 21.0-32.0 [facility] Comment on above: Order Comment: 109-1 Performed By: #### L 100.0500, L500.4100, L500.4050 ####[facility] [address] [place], [address] Creatinine [Mass/Vol] 0.64 mg/dL Low 0.70-1.30 [facility] Comment on above: Order Comment: 109-1 Result Comment: The validity of the calculated GFR GFRAA in patients over70 years has not been determined. Clinical correlation isessential. Performed By: #### L 100.0500, L500.4100, L500.4050 ####[facility] [address] [place], [address] EST GFR - AA 160 mL/min Normal >60 [facility] Comment on above: Order Comment: 109-1 Result Comment: Afri can Cymraes GFR Calc Performed By: #### L 100.0500, L500.4100, L500.4050 ####[facility] [address] [place], [address] GAP 6 Normal 5-15 [facility] Comment on above: Order Comment: 109-1 Performed By: #### L 100.0500, L500.4100, L500.4050 ####[facility] [address] [place], [address] GFR/1.73 sq M.predicted among non-blacks MDRD (S/P/Bld) [Vol rate/Area] 132 mL/min/{1.73_m2} Normal >60 [facility] Comment on above: Order Comment: 109-1 Result Comment: Non- GFR Calc Performed By: #### L 100.0500, L500.4100, L500.4050 ####[facility] [address] [place], [address] Globulin (S) [Mass/Vol] 2.9 g/dL Normal 2.2-4.2 [facility] Comment on above: Order Comment: 109-1 Performed By: #### L 100.0500, L500.4100, L500.4050 ####[facility] [address] [place], [address] Glucose [Mass/Vol] 111 mg/dL High 74-106 [facility] Comment on above: Order Comment: 109- Result Comment: Fast ing Glucose result from 100 to 125 mg/dLsuggests IMPAIRED HOMEOSTASIS per A.D.A. criteria. Performed By: #### L 100.0500, L500.4100, L500.4050 ####[facility] [address] [place], [address] Potassium [Moles/Vol] 3.6 mmol/L Normal 3.5-5.1 [facility] Comment on above: Order Comment: 109-1 Performed By: #### L 100.0500, L500.4100, L500.4050 ####[facility] [address] [place], [address] Sodium [Moles/Vol] 141 mmol/L Normal 136-145 [facility] Comment on above: Order Comment: 109-1 Performed By: #### L 100.0500, L500.4100, L500.4050 ####[facility] [address] [place], [address] T PROT 6.0 g/dL Low 6.4-8.2 [facility] Comment on above: Order Comment: 109-1 Performed By: #### L 100.0500, L500.4100, L500.4050 ####[facility] [address] [place], [address] Urea nitrogen [Mass/Vol] 16 mg/dL Normal 7-18 [facility] Comment on above: Order Comment: 109-1 Performed By: #### L 100.0500, L500.4100, L500.4050 ####[facility] [address] [place], [address] Lipid Profileon 02-23-2024 Cholesterol [Mass/Vol] 123 mg/dL Normal 200 [facility] Comment on above: Order Comment: 109-1 Result Comment: <200 mg/dL Desirable 200-240 mg/dL Borderline >240 mg/dL High Risk Performed By: #### L 100.0500, L500.4100, L500.4050 ####[facility] [address] [place], [address] Cholesterol in HDL [Mass/Vol] 28 mg/dL Low [facility] Comment on above: Order Comment: 109-1 Result Comment: The drugs N-Acetylcysteine and Metamizole may falselydepress this assay. Reference Range HDL <40 mg/dL Low HDL Cholesterol HDL >or= 60 mg/dL High HDL Cholesterol Performed By: #### L 100.0500, L500.4100, L500.4050 ####[facility] [address] [place], [address] Cholesterol in LDL [Mass/Vol] 71 mg/dL Normal 0-130 [facility] Comment on above: Order Comment: 109-1 Performed By: #### L 100.0500, L500.4100, L500.4050 ####[facility] [address] [place], [address] Cholesterol in VLDL [Mass/Vol] 24 mg/dL Normal 5-40 [facility] Comment on above: Order Comment: 109-1 Performed By: #### L 100.0500, L500.4100, L500.4050 ####[facility] [address] [place], [address] Triglyceride [Mass/Vol] 119 mg/dL Normal [facility] Comment on above: Order Comment: 109-1 Result Comment: The drugs N-Acetylcysteine and Metamizole may falselydepress this assay.Serum Triglycerides Reference Interval Normal <150 mg/dL Borderline high 150 - 199 mg/dL High 200 - 499 mg/dL Very High > or = 500 mg/dL Performed By: #### L 100.0500, L500.4100, L500.4050 ####[facility] [address] [place], [address] CBC W/Diff, Automatedon 10-2 Absolute Lymph 1.92 X10 3/uL Normal 0.83-4.51 [facility] Comment on above: Order Comment: 109-1 Performed By: #### L 100.0100 ####[facility] [address] [place], [address] Absolute Neut 6.9 X10 3/uL Normal 2.0-7.7 [facility] Comment on above: Order Comment: 109-1 Performed By: #### L 100.0100 ####[facility] [address] [place], [address] Basophils/100 WBC (Bld) 0.4 % Normal 0-1 [facility] Comment on above: Order Comment: 109-1 Performed By: #### L 100.0100 ####[facility] [address] [place], [address] Eosinophils/100 WBC (Bld) 0.6 % Normal 0-5 [facility] Comment on above: Order Comment: 109-1 Performed By: #### L 100.0100 ####[facility] [address] [place], [address] Erythrocyte distribution width (RBC) [Ratio] 12.9 % Normal 11.6-14.6 [facility] Comment on above: Order Comment: 109-1 Performed By: #### L 100.0100 ####[facility] [address] [place], [address] Hematocrit (Bld) [Volume fraction] 40.4 % Normal 40-54 [facility] Comment on above: Order Comment: 109-1 Performed By: #### L 100.0100 ####[facility] [address] [place], [address] Hemoglobin (Bld) [Mass/Vol] 13.3 g/dL Normal 13.0-16.5 [facility] Comment on above: Order Comment: 109-1 Performed By: #### L 100.0100 ####[facility] [address] [place], [address] IG% 0.300 Normal 0.0-0.9 [facility] Comment on above: Order Comment: 109-1 Result Comment: IG% - Immature Granulocytes (promyelocytes, myelocytes andmetamyelocytes) > 1% indicates that a LEFT SHIFT is Present. Performed By: #### L 100.0100 ####[facility] [address] [place], [address] Lymphocytes/100 WBC (Bld) 20.1 % Normal 19-41 [facility] Comment on above: Order Comment: 109-1 Performed By: #### L 100.0100 ####[facility] [address] [place], [address] MCH (RBC) [Entitic mass] 30.2 pg Normal 27.0-32.0 [facility] Comment on above: Order Comment: 109-1 Performed By: #### L 100.0100 ####[facility] [address] [place], [address] MCHC (RBC) [Mass/Vol] 32.9 g/dL Normal 32-36 [facility] Comment on above: Order Comment: 109-1 Performed By: #### L 100.0100 ####[facility] [address] [place], [address] MCV (RBC) [Entitic vol] 91.6 fL Normal 80-94 [facility] Comment on above: Order Comment: 109-1 Performed By: #### L 100.0100 ####[facility] [address] [place], [address] Monocytes/100 WBC (Bld) 6.8 % Normal 0-10 [facility] Comment on above: Order Comment: 109-1 Performed By: #### L 100.0100 ####[facility] [address] [place], [address] Neutrophils/100 WBC (Bld) 71.8 % High 47-70 [facility] Comment on above: Order Comment: 109-1 Performed By: #### L 100.0100 ####[facility] [address] [place], [address] Nucleated RBC (Bld) [#/Vol] 0 10*3/uL Normal 0-5 [facility] Comment on above: Order Comment: 109-1 Performed By: #### L 100.0100 ####[facility] [address] [place], [address] Platelet mean volume (Bld) [Entitic vol] 10.9 fL Normal 6.2-12.0 [facility] Comment on above: Order Comment: 109-1 Performed By: #### L 100.0100 ####[facility] [address] [place], [address] Platelets (Bld) [#/Vol] 209 10*3/uL Normal 150-450 [facility] Comment on above: Order Comment: 109-1 Performed By: #### L 100.0100 ####[facility] [address] [place], [address] RBC (Bld) [#/Vol] 4.41 10*6/uL Low 4.6-6.2 [facility] Comment on above: Order Comment: 109-1 Performed By: #### L 100.0100 ####[facility] [address] [place], [address] RDW SD 42.8 fl Normal 35.1-43.9 [facility] Comment on above: Order Comment: 109-1 Performed By: #### L 100.0100 ####[facility] [address] [place], [address] WBC (Bld) [#/Vol] 9.6 10*3/uL Normal 4.4-11.0 [facility] Comment on above: Order Comment: 109-1 Performed By: #### L 100.0100 ####[facility] [address] [place], [address] CBC W/Diff, Automatedon 10-05 04-2023 Absolute Lymph 2.08 X10 3/uL Normal 0.83-4.51 [facility] Comment on above: Order Comment: 109.1 Performed By: #### L 100.0100 ####[facility] [address] [place], [address] Absolute Neut 6.9 X10 3/uL Normal 2.0-7.7 [facility] Comment on above: Order Comment: 109.1 Performed By: #### L 100.0100 ####[facility] [address] [place], [address] Basophils/100 WBC (Bld) 0.5 % Normal 0-1 [facility] Comment on above: Order Comment: 109.1 Performed By: #### L 100.0100 ####[facility] [address] [place], [address] Eosinophils/100 WBC (Bld) 0.3 % Normal 0-5 [facility] Comment on above: Order Comment: 109.1 Performed By: #### L 100.0100 ####[facility] [address] [place], [address] Erythrocyte distribution width (RBC) [Ratio] 12.8 % Normal 11.6-14.6 [facility] Comment on above: Order Comment: 109.1 Performed By: #### L 100.0100 ####[facility] [address] [place], [address] Hematocrit (Bld) [Volume fraction] 40.6 % Normal 40-54 [facility] Comment on above: Order Comment: 109.1 Performed By: #### L 100.0100 ####[facility] [address] [place], [address] Hemoglobin (Bld) [Mass/Vol] 13.1 g/dL Normal 13.0-16.5 [facility] Comment on above: Order Comment: 109.1 Performed By: #### L 100.0100 ####[facility] [address] [place], [address] IG% 0.300 Normal 0.0-0.9 [facility] Comment on above: Order Comment: 109.1 Result Comment: IG% - Immature Granulocytes (promyelocytes, myelocytes andmetamyelocytes) > 1% indicates that a LEFT SHIFT is Present. Performed By: #### L 100.0100 ####[facility] [address] [place], [address] Lymphocytes/100 WBC (Bld) 21.2 % Normal 19-41 [facility] Comment on above: Order Comment: 109.1 Performed By: #### L 100.0100 ####[facility] [address] [place], [address] MCH (RBC) [Entitic mass] 29.8 pg Normal 27.0-32.0 [facility] Comment on above: Order Comment: 109.1 Performed By: #### L 100.0100 ####[facility] [address] [place], [address] MCHC (RBC) [Mass/Vol] 32.3 g/dL Normal 32-36 [facility] Comment on above: Order Comment: 109.1 Performed By: #### L 100.0100 ####[facility] [address] [place], [address] MCV (RBC) [Entitic vol] 92.5 fL Normal 80-94 [facility] Comment on above: Order Comment: 109.1 Performed By: #### L 100.0100 ####[facility] [address] [place], [address] Monocytes/100 WBC (Bld) 7.6 % Normal 0-10 [facility] Comment on above: Order Comment: 109.1 Performed By: #### L 100.0100 ####[facility] [address] [place], [address] Neutrophils/100 WBC (Bld) 70.1 % High 47-70 [facility] Comment on above: Order Comment: 109.1 Performed By: #### L 100.0100 ####[facility] [address] [place], [address] Nucleated RBC (Bld) [#/Vol] 0 10*3/uL Normal 0-5 [facility] Comment on above: Order Comment: 109.1 Performed By: #### L 100.0100 ####[facility] [address] [place], [address] Platelet mean volume (Bld) [Entitic vol] 10.8 fL Normal 6.2-12.0 [facility] Comment on above: Order Comment: 109.1 Performed By: #### L 100.0100 ####[facility] [address] [place], [address] Platelets (Bld) [#/Vol] 221 10*3/uL Normal 150-450 [facility] Comment on above: Order Comment: 109.1 Performed By: #### L 100.0100 ####[facility] [address] [place], [address] RBC (Bld) [#/Vol] 4.39 10*6/uL Low 4.6-6.2 [facility] Comment on above: Order Comment: 109.1 Performed By: #### L 100.0100 ####[facility] [address] [place], [address] RDW SD 43.4 fl Normal 35.1-43.9 [facility] Comment on above: Order Comment: 109.1 Performed By: #### L 100.0100 ####[facility] [address] [place], [address] WBC (Bld) [#/Vol] 9.8 10*3/uL Normal 4.4-11.0 [facility] Comment on above: Order Comment: 109.1 Performed By: #### L 100.0100 ####[facility] [address] [place], [address] CBC W/Diff, Automatedon 10-0 7-2023 Absolute Lymph 2.06 X10 3/uL Normal 0.83-4.51 [facility] Comment on above: Order Comment: 109.1 Performed By: #### L 100.0100 ####[facility] [address] [place], [address] Absolute Neut 4.8 X10 3/uL Normal 2.0-7.7 [facility] Comment on above: Order Comment: 109.1 Performed By: #### L 100.0100 ####[facility] [address] [place], [address] Basophils/100 WBC (Bld) 0.7 % Normal 0-1 [facility] Comment on above: Order Comment: 109.1 Performed By: #### L 100.0100 ####[facility] [address] [place], [address] Eosinophils/100 WBC (Bld) 0.5 % Normal 0-5 [facility] Comment on above: Order Comment: 109.1 Performed By: #### L 100.0100 ####[facility] [address] [place], [address] Erythrocyte distribution width (RBC) [Ratio] 13.2 % Normal 11.6-14.6 [facility] Comment on above: Order Comment: 109.1 Performed By: #### L 100.0100 ####[facility] [address] [place], [address] Hematocrit (Bld) [Volume fraction] 42.7 % Normal 40-54 [facility] Comment on above: Order Comment: 109.1 Performed By: #### L 100.0100 ####[facility] [address] [place], [address] Hemoglobin (Bld) [Mass/Vol] 13.5 g/dL Normal 13.0-16.5 [facility] Comment on above: Order Comment: 109.1 Performed By: #### L 100.0100 ####[facility] [address] [place], [address] IG% 0.400 Normal 0.0-0.9 [facility] Comment on above: Order Comment: 109.1 Result Comment: IG% - Immature Granulocytes (promyelocytes, myelocytes andmetamyelocytes) > 1% indicates that a LEFT SHIFT is Present. Performed By: #### L 100.0100 ####[facility] [address] [place], [address] Lymphocytes/100 WBC (Bld) 26.9 % Normal 19-41 [facility] Comment on above: Order Comment: 109.1 Performed By: #### L 100.0100 ####[facility] [address] [place], [address] MCH (RBC) [Entitic mass] 29.3 pg Normal 27.0-32.0 [facility] Comment on above: Order Comment: 109.1 Performed By: #### L 100.0100 ####[facility] [address] [place], [address] MCHC (RBC) [Mass/Vol] 31.6 g/dL Low 32-36 [facility] Comment on above: Order Comment: 109.1 Performed By: #### L 100.0100 ####[facility] [address] [place], [address] MCV (RBC) [Entitic vol] 92.8 fL Normal 80-94 [facility] Comment on above: Order Comment: 109.1 Performed By: #### L 100.0100 ####[facility] [address] [place], [address] Monocytes/100 WBC (Bld) 9.3 % Normal 0-10 [facility] Comment on above: Order Comment: 109.1 Performed By: #### L 100.0100 ####[facility] [address] [place], [address] Neutrophils/100 WBC (Bld) 62.2 % Normal 47-70 [facility] Comment on above: Order Comment: 109.1 Performed By: #### L 100.0100 ####[facility] [address] [place], [address] Nucleated RBC (Bld) [#/Vol] 0 10*3/uL Normal 0-5 [facility] Comment on above: Order Comment: 109.1 Performed By: #### L 100.0100 ####[facility] [address] [place], [address] Platelet mean volume (Bld) [Entitic vol] 11.2 fL Normal 6.2-12.0 [facility] Comment on above: Order Comment: 109.1 Performed By: #### L 100.0100 ####[facility] [address] [place], [address] Platelets (Bld) [#/Vol] 192 10*3/uL Normal 150-450 [facility] Comment on above: Order Comment: 109.1 Performed By: #### L 100.0100 ####[facility] [address] [place], [address] RBC (Bld) [#/Vol] 4.60 10*6/uL Normal 4.6-6.2 [facility] Comment on above: Order Comment: 109.1 Performed By: #### L 100.0100 ####[facility] [address] [place], [address] RDW SD 44.9 fl High 35.1-43.9 [facility] Comment on above: Order Comment: 109.1 Performed By: #### L 100.0100 ####[facility] [address] [place], [address] WBC (Bld) [#/Vol] 7.7 10*3/uL Normal 4.4-11.0 [facility] Comment on above: Order Comment: 109.1 Performed By: #### L 100.0100 ####[facility] [address] [place], [address] CBC W/Diff, Automatedon 09-3 0-2023 Absolute Lymph 2.12 X10 3/uL Normal 0.83-4.51 [facility] Comment on above: Order Comment: 109.1 Performed By: #### L 100.0100 ####[facility] [address] [place], [address] Absolute Neut 5.2 X10 3/uL Normal 2.0-7.7 [facility] Comment on above: Order Comment: 109.1 Performed By: #### L 100.0100 ####[facility] [address] [place], [address] Basophils/100 WBC (Bld) 0.6 % Normal 0-1 [facility] Comment on above: Order Comment: 109.1 Performed By: #### L 100.0100 ####[facility] [address] [place], [address] Eosinophils/100 WBC (Bld) 0.5 % Normal 0-5 [facility] Comment on above: Order Comment: 109.1 Performed By: #### L 100.0100 ####[facility] [address] [place], [address] Erythrocyte distribution width (RBC) [Ratio] 13.2 % Normal 11.6-14.6 [facility] Comment on above: Order Comment: 109.1 Performed By: #### L 100.0100 ####[facility] [address] [place], [address] Hematocrit (Bld) [Volume fraction] 46.0 % Normal 40-54 [facility] Comment on above: Order Comment: 109.1 Performed By: #### L 100.0100 ####[facility] [address] [place], [address] Hemoglobin (Bld) [Mass/Vol] 14.5 g/dL Normal 13.0-16.5 [facility] Comment on above: Order Comment: 109.1 Performed By: #### L 100.0100 ####[facility] [address] [place], [address] IG% 0.200 Normal 0.0-0.9 [facility] Comment on above: Order Comment: 109.1 Result Comment: IG% - Immature Granulocytes (promyelocytes, myelocytes andmetamyelocytes) > 1% indicates that a LEFT SHIFT is Present. Performed By: #### L 100.0100 ####[facility] [address] [place], [address] Lymphocytes/100 WBC (Bld) 25.9 % Normal 19-41 [facility] Comment on above: Order Comment: 109.1 Performed By: #### L 100.0100 ####[facility] [address] [place], [address] MCH (RBC) [Entitic mass] 29.2 pg Normal 27.0-32.0 [facility] Comment on above: Order Comment: 109.1 Performed By: #### L 100.0100 ####[facility] [address] [place], [address] MCHC (RBC) [Mass/Vol] 31.5 g/dL Low 32-36 [facility] Comment on above: Order Comment: 109.1 Performed By: #### L 100.0100 ####[facility] [address] [place], [address] MCV (RBC) [Entitic vol] 92.7 fL Normal 80-94 [facility] Comment on above: Order Comment: 109.1 Performed By: #### L 100.0100 ####[facility] [address] [place], [address] Monocytes/100 WBC (Bld) 9.0 % Normal 0-10 [facility] Comment on above: Order Comment: 109.1 Performed By: #### L 100.0100 ####[facility] [address] [place], [address] Neutrophils/100 WBC (Bld) 63.8 % Normal 47-70 [facility] Comment on above: Order Comment: 109.1 Performed By: #### L 100.0100 ####[facility] [address] [place], [address] Nucleated RBC (Bld) [#/Vol] 0 10*3/uL Normal 0-5 [facility] Comment on above: Order Comment: 109.1 Performed By: #### L 100.0100 ####[facility] [address] [place], [address] Platelet mean volume (Bld) [Entitic vol] 10.9 fL Normal 6.2-12.0 [facility] Comment on above: Order Comment: 109.1 Performed By: #### L 100.0100 ####[facility] [address] [place], [address] Platelets (Bld) [#/Vol] 192 10*3/uL Normal 150-450 [facility] Comment on above: Order Comment: 109.1 Performed By: #### L 100.0100 ####[facility] [address] [place], [address] RBC (Bld) [#/Vol] 4.96 10*6/uL Normal 4.6-6.2 [facility] Comment on above: Order Comment: 109.1 Performed By: #### L 100.0100 ####[facility] [address] [place], [address] RDW SD 44.6 fl High 35.1-43.9 [facility] Comment on above: Order Comment: 109.1 Performed By: #### L 100.0100 ####[facility] [address] [place], [address] WBC (Bld) [#/Vol] 8.2 10*3/uL Normal 4.4-11.0 [facility] Comment on above: Order Comment: 109.1 Performed By: #### L 100.0100 ####[facility] [address] [place], [address] CBC W/Diff, Automatedon 09-2 -2023 Absolute Lymph 1.62 X10 3/uL Normal 0.83-4.51 [facility] Comment on above: Order Comment: 109-1 Performed By: #### L 100.0100 ####[facility] [address] [place], [address] Absolute Neut 8.1 X10 3/uL High 2.0-7.7 [facility] Comment on above: Order Comment: 109-1 Performed By: #### L 100.0100 ####[facility] [address] [place], [address] Basophils/100 WBC (Bld) 0.4 % Normal 0-1 [facility] Comment on above: Order Comment: 109-1 Performed By: #### L 100.0100 ####[facility] [address] [place], [address] Eosinophils/100 WBC (Bld) 0.1 % Normal 0-5 [facility] Comment on above: Order Comment: 109-1 Performed By: #### L 100.0100 ####[facility] [address] [place], [address] Erythrocyte distribution width (RBC) [Ratio] 12.9 % Normal 11.6-14.6 [facility] Comment on above: Order Comment: 109-1 Performed By: #### L 100.0100 ####[facility] [address] [place], [address] Hematocrit (Bld) [Volume fraction] 41.9 % Normal 40-54 [facility] Comment on above: Order Comment: 109-1 Performed By: #### L 100.0100 ####[facility] [address] [place], [address] Hemoglobin (Bld) [Mass/Vol] 13.5 g/dL Normal 13.0-16.5 [facility] Comment on above: Order Comment: 109-1 Performed By: #### L 100.0100 ####[facility] [address] [place], [address] IG% 0.400 Normal 0.0-0.9 [facility] Comment on above: Order Comment: 109-1 Result Comment: IG% - Immature Granulocytes (promyelocytes, myelocytes andmetamyelocytes) > 1% indicates that a LEFT SHIFT is Present. Performed By: #### L 100.0100 ####[facility] [address] [place], [address] Lymphocytes/100 WBC (Bld) 15.2 % Low 19-41 [facility] Comment on above: Order Comment: 109-1 Performed By: #### L 100.0100 ####[facility] [address] [place], [address] MCH (RBC) [Entitic mass] 29.3 pg Normal 27.0-32.0 [facility] Comment on above: Order Comment: 109-1 Performed By: #### L 100.0100 ####[facility] [address] [place], [address] MCHC (RBC) [Mass/Vol] 32.2 g/dL Normal 32-36 [facility] Comment on above: Order Comment: 109-1 Performed By: #### L 100.0100 ####[facility] [address] [place], [address] MCV (RBC) [Entitic vol] 90.9 fL Normal 80-94 [facility] Comment on above: Order Comment: 109-1 Performed By: #### L 100.0100 ####[facility] [address] [place], [address] Monocytes/100 WBC (Bld) 7.4 % Normal 0-10 [facility] Comment on above: Order Comment: 109-1 Performed By: #### L 100.0100 ####[facility] [address] [place], [address] Neutrophils/100 WBC (Bld) 76.5 % High 47-70 [facility] Comment on above: Order Comment: 109-1 Performed By: #### L 100.0100 ####[facility] [address] [place], [address] Nucleated RBC (Bld) [#/Vol] 0 10*3/uL Normal 0-5 [facility] Comment on above: Order Comment: 109-1 Performed By: #### L 100.0100 ####[facility] [address] [place], [address] Platelet mean volume (Bld) [Entitic vol] 11.2 fL Normal 6.2-12.0 [facility] Comment on above: Order Comment: 109-1 Performed By: #### L 100.0100 ####[facility] [address] [place], [address] Platelets (Bld) [#/Vol] 220 10*3/uL Normal 150-450 [facility] Comment on above: Order Comment: 109-1 Performed By: #### L 100.0100 ####[facility] [address] [place], [address] RBC (Bld) [#/Vol] 4.61 10*6/uL Normal 4.6-6.2 [facility] Comment on above: Order Comment: 109-1 Performed By: #### L 100.0100 ####[facility] [address] [place], [address] RDW SD 42.1 fl Normal 35.1-43.9 [facility] Comment on above: Order Comment: 109-1 Performed By: #### L 100.0100 ####[facility] [address] [place], [address] WBC (Bld) [#/Vol] 10.6 10*3/uL Normal 4.4-11.0 [facility] Comment on above: Order Comment: 109-1 Performed By: #### L 100.0100 ####[facility] [address] [place], [address] CBC W/Diff, Automatedon 12-30 Absolute Lymph 2.15 X10 3/uL Normal 0.83-4.51 [facility] Comment on above: Order Comment: 109-1 Performed By: #### L 100.0100 ####[facility] [address] [place], [address] Absolute Neut 5.4 X10 3/uL Normal 2.0-7.7 [facility] Comment on above: Order Comment: 109-1 Performed By: #### L 100.0100 ####[facility] [address] [place], [address] Basophils/100 WBC (Bld) 0.7 % Normal 0-1 [facility] Comment on above: Order Comment: 109-1 Performed By: #### L 100.0100 ####[facility] [address] [place], [address] Eosinophils/100 WBC (Bld) 0.7 % Normal 0-5 [facility] Comment on above: Order Comment: 109-1 Performed By: #### L 100.0100 ####[facility] [address] [place], [address] Erythrocyte distribution width (RBC) [Ratio] 13.1 % Normal 11.6-14.6 [facility] Comment on above: Order Comment: 109-1 Performed By: #### L 100.0100 ####[facility] [address] [place], [address] Hematocrit (Bld) [Volume fraction] 44.1 % Normal 40-54 [facility] Comment on above: Order Comment: 109-1 Performed By: #### L 100.0100 ####[facility] [address] [place], [address] Hemoglobin (Bld) [Mass/Vol] 14.2 g/dL Normal 13.0-16.5 [facility] Comment on above: Order Comment: 109-1 Performed By: #### L 100.0100 ####[facility] [address] [place], [address] IG% 0.400 Normal 0.0-0.9 [facility] Comment on above: Order Comment: 109-1 Result Comment: IG% - Immature Granulocytes (promyelocytes, myelocytes andmetamyelocytes) > 1% indicates that a LEFT SHIFT is Present. Performed By: #### L 100.0100 ####[facility] [address] [place], [address] Lymphocytes/100 WBC (Bld) 25.7 % Normal 19-41 [facility] Comment on above: Order Comment: 109-1 Performed By: #### L 100.0100 ####[facility] [address] [place], [address] MCH (RBC) [Entitic mass] 29.5 pg Normal 27.0-32.0 [facility] Comment on above: Order Comment: 109-1 Performed By: #### L 100.0100 ####[facility] [address] [place], [address] MCHC (RBC) [Mass/Vol] 32.2 g/dL Normal 32-36 [facility] Comment on above: Order Comment: 109-1 Performed By: #### L 100.0100 ####[facility] [address] [place], [address] MCV (RBC) [Entitic vol] 91.7 fL Normal 80-94 [facility] Comment on above: Order Comment: 109-1 Performed By: #### L 100.0100 ####[facility] [address] [place], [address] Monocytes/100 WBC (Bld) 7.5 % Normal 0-10 [facility] Comment on above: Order Comment: 109-1 Performed By: #### L 100.0100 ####[facility] [address] [place], [address] Neutrophils/100 WBC (Bld) 65.0 % Normal 47-70 [facility] Comment on above: Order Comment: 109-1 Performed By: #### L 100.0100 ####[facility] [address] [place], [address] Nucleated RBC (Bld) [#/Vol] 0 10*3/uL Normal 0-5 [facility] Comment on above: Order Comment: 109-1 Performed By: #### L 100.0100 ####[facility] [address] [place], [address] Platelet mean volume (Bld) [Entitic vol] 11.1 fL Normal 6.2-12.0 [facility] Comment on above: Order Comment: 109-1 Performed By: #### L 100.0100 ####[facility] [address] [place], [address] Platelets (Bld) [#/Vol] 200 10*3/uL Normal 150-450 [facility] Comment on above: Order Comment: 109-1 Performed By: #### L 100.0100 ####[facility] [address] [place], [address] RBC (Bld) [#/Vol] 4.81 10*6/uL Normal 4.6-6.2 [facility] Comment on above: Order Comment: 109-1 Performed By: #### L 100.0100 ####[facility] [address] [place], [address] RDW SD 44.1 fl High 35.1-43.9 [facility] Comment on above: Order Comment: 109-1 Performed By: #### L 100.0100 ####[facility] [address] [place], [address] WBC (Bld) [#/Vol] 8.4 10*3/uL Normal 4.4-11.0 [facility] Comment on above: Order Comment: 109-1 Performed By: #### L 100.0100 ####[facility] [address] [place], [address] CBC W/Diff, Automatedon 09-0 -2023 Absolute Lymph 3.20 X10 3/uL Normal 0.83-4.51 [facility] Comment on above: Order Comment: 109-1 Performed By: #### L 100.0100 ####[facility] [address] [place], [address] Absolute Neut 5.5 X10 3/uL Normal 2.0-7.7 [facility] Comment on above: Order Comment: 109-1 Performed By: #### L 100.0100 ####[facility] [address] [place], [address] Basophils/100 WBC (Bld) 0.5 % Normal 0-1 [facility] Comment on above: Order Comment: 109-1 Performed By: #### L 100.0100 ####[facility] [address] [place], [address] Eosinophils/100 WBC (Bld) 0.6 % Normal 0-5 [facility] Comment on above: Order Comment: 109-1 Performed By: #### L 100.0100 ####[facility] [address] [place], [address] Erythrocyte distribution width (RBC) [Ratio] 13.2 % Normal 11.6-14.6 [facility] Comment on above: Order Comment: 109-1 Performed By: #### L 100.0100 ####[facility] [address] [place], [address] Hematocrit (Bld) [Volume fraction] 44.3 % Normal 40-54 [facility] Comment on above: Order Comment: 109-1 Performed By: #### L 100.0100 ####[facility] [address] [place], [address] Hemoglobin (Bld) [Mass/Vol] 14.4 g/dL Normal 13.0-16.5 [facility] Comment on above: Order Comment: 109-1 Performed By: #### L 100.0100 ####[facility] [address] [place], [address] IG% 0.400 Normal 0.0-0.9 [facility] Comment on above: Order Comment: 109-1 Result Comment: IG% - Immature Granulocytes (promyelocytes, myelocytes andmetamyelocytes) > 1% indicates that a LEFT SHIFT is Present. Performed By: #### L 100.0100 ####[facility] [address] [place], [address] Lymphocytes/100 WBC (Bld) 31.4 % Normal 19-41 [facility] Comment on above: Order Comment: 109-1 Performed By: #### L 100.0100 ####[facility] [address] [place], [address] MCH (RBC) [Entitic mass] 29.8 pg Normal 27.0-32.0 [facility] Comment on above: Order Comment: 109-1 Performed By: #### L 100.0100 ####[facility] [address] [place], [address] MCHC (RBC) [Mass/Vol] 32.5 g/dL Normal 32-36 [facility] Comment on above: Order Comment: 109-1 Performed By: #### L 100.0100 ####[facility] [address] [place], [address] MCV (RBC) [Entitic vol] 91.7 fL Normal 80-94 [facility] Comment on above: Order Comment: 109-1 Performed By: #### L 100.0100 ####[facility] [address] [place], [address] Monocytes/100 WBC (Bld) 12.8 % High 0-10 [facility] Comment on above: Order Comment: 109-1 Performed By: #### L 100.0100 ####[facility] [address] [place], [address] Neutrophils/100 WBC (Bld) 54.3 % Normal 47-70 [facility] Comment on above: Order Comment: 109-1 Performed By: #### L 100.0100 ####[facility] [address] [place], [address] Nucleated RBC (Bld) [#/Vol] 0 10*3/uL Normal 0-5 [facility] Comment on above: Order Comment: 109-1 Performed By: #### L 100.0100 ####[facility] [address] [place], [address] Platelet mean volume (Bld) [Entitic vol] 11.9 fL Normal 6.2-12.0 [facility] Comment on above: Order Comment: 109-1 Performed By: #### L 100.0100 ####[facility] [address] [place], [address] Platelets (Bld) [#/Vol] 187 10*3/uL Normal 150-450 [facility] Comment on above: Order Comment: 109-1 Performed By: #### L 100.0100 ####[facility] [address] [place], [address] RBC (Bld) [#/Vol] 4.83 10*6/uL Normal 4.6-6.2 [facility] Comment on above: Order Comment: 109-1 Performed By: #### L 100.0100 ####[facility] [address] [place], [address] RDW SD 44.3 fl High 35.1-43.9 [facility] Comment on above: Order Comment: 109-1 Performed By: #### L 100.0100 ####[facility] [address] [place], [address] WBC (Bld) [#/Vol] 10.2 10*3/uL Normal 4.4-11.0 [facility] Comment on above: Order Comment: 109-1 Performed By: #### L 100.0100 ####[facility] [address] [place], [address] CBC W/Diff, Automatedon 09-0 3-2024 Absolute Lymph 2.57 X10 3/uL Normal 0.83-4.51 [facility] Comment on above: Order Comment: 109-1 Performed By: #### L 100.0100, L500.4100 ####[facility] [address] [place], [address] Absolute Neut 5.9 X10 3/uL Normal 2.0-7.7 [facility] Comment on above: Order Comment: 109-1 Performed By: #### L 100.0100, L500.4100 ####[facility] [address] [place], [address] Basophils/100 WBC (Bld) 0.5 % Normal 0-1 [facility] Comment on above: Order Comment: 109-1 Performed By: #### L 100.0100, L500.4100 ####[facility] [address] [place], [address] Eosinophils/100 WBC (Bld) 0.4 % Normal 0-5 [facility] Comment on above: Order Comment: 109-1 Performed By: #### L 100.0100, L500.4100 ####[facility] [address] [place], [address] Erythrocyte distribution width (RBC) [Ratio] 13.1 % Normal 11.6-14.6 [facility] Comment on above: Order Comment: 109-1 Performed By: #### L 100.0100, L500.4100 ####[facility] [address] [place], [address] Hematocrit (Bld) [Volume fraction] 40.6 % Normal 40-54 [facility] Comment on above: Order Comment: 109-1 Performed By: #### L 100.0100, L500.4100 ####[facility] [address] [place], [address] Hemoglobin (Bld) [Mass/Vol] 13.3 g/dL Normal 13.0-16.5 [facility] Comment on above: Order Comment: 109-1 Performed By: #### L 100.0100, L500.4100 ####[facility] [address] [place], [address] IG% 0.300 Normal 0.0-0.9 [facility] Comment on above: Order Comment: 109-1 Result Comment: IG% - Immature Granulocytes (promyelocytes, myelocytes andmetamyelocytes) > 1% indicates that a LEFT SHIFT is Present. Performed By: #### L 100.0100, L500.4100 ####[facility] [address] [place], [address] Lymphocytes/100 WBC (Bld) 27.0 % Normal 19-41 [facility] Comment on above: Order Comment: 109-1 Performed By: #### L 100.0100, L500.4100 ####[facility] [address] [place], [address] MCH (RBC) [Entitic mass] 30.2 pg Normal 27.0-32.0 [facility] Comment on above: Order Comment: 109-1 Performed By: #### L 100.0100, L500.4100 ####[facility] [address] [place], [address] MCHC (RBC) [Mass/Vol] 32.8 g/dL Normal 32-36 [facility] Comment on above: Order Comment: 109-1 Performed By: #### L 100.0100, L500.4100 ####[facility] [address] [place], [address] MCV (RBC) [Entitic vol] 92.3 fL Normal 80-94 [facility] Comment on above: Order Comment: 109-1 Performed By: #### L 100.0100, L500.4100 ####[facility] [address] [place], [address] Monocytes/100 WBC (Bld) 9.7 % Normal 0-10 [facility] Comment on above: Order Comment: 109-1 Performed By: #### L 100.0100, L500.4100 ####[facility] [address] [place], [address] Neutrophils/100 WBC (Bld) 62.1 % Normal 47-70 [facility] Comment on above: Order Comment: 109-1 Performed By: #### L 100.0100, L500.4100 ####[facility] [address] [place], [address] Nucleated RBC (Bld) [#/Vol] 0 10*3/uL Normal 0-5 [facility] Comment on above: Order Comment: 109-1 Performed By: #### L 100.0100, L500.4100 ####[facility] [address] [place], [address] Platelet mean volume (Bld) [Entitic vol] 12.1 fL High 6.2-12.0 [facility] Comment on above: Order Comment: 109-1 Performed By: #### L 100.0100, L500.4100 ####[facility] [address] [place], [address] Platelets (Bld) [#/Vol] 172 10*3/uL Normal 150-450 [facility] Comment on above: Order Comment: 109-1 Performed By: #### L 100.0100, L500.4100 ####[facility] [address] [place], [address] RBC (Bld) [#/Vol] 4.40 10*6/uL Low 4.6-6.2 [facility] Comment on above: Order Comment: 109-1 Performed By: #### L 100.0100, L500.4100 ####[facility] [address] [place], [address] RDW SD 44.0 fl High 35.1-43.9 [facility] Comment on above: Order Comment: 109-1 Performed By: #### L 100.0100, L500.4100 ####[facility] [address] [place], [address] WBC (Bld) [#/Vol] 9.5 10*3/uL Normal 4.4-11.0 [facility] Comment on above: Order Comment: 109-1 Performed By: #### L 100.0100, L500.4100 ####[facility] [address] [place], [address] Lipid Profileon 01-02-2024 Cholesterol [Mass/Vol] 115 mg/dL Normal 200 [facility] Comment on above: Order Comment: 109-1 Result Comment: <200 mg/dL Desirable 200-240 mg/dL Borderline >240 mg/dL High Risk Performed By: #### L 100.0100, L500.4100 ####[facility] [address] [place], [address] Cholesterol in HDL [Mass/Vol] 24 mg/dL Low [facility] Comment on above: Order Comment: 109-1 Result Comment: The drugs N-Acetylcysteine and Metamizole may falselydepress this assay. Reference Range HDL <40 mg/dL Low HDL Cholesterol HDL >or= 60 mg/dL High HDL Cholesterol Performed By: #### L 100.0100, L500.4100 ####[facility] [address] [place], [address] Cholesterol in LDL [Mass/Vol] 37 mg/dL Normal 0-130 [facility] Comment on above: Order Comment: 109-1 Performed By: #### L 100.0100, L500.4100 ####[facility] [address] [place], [address] Cholesterol in VLDL [Mass/Vol] 54 mg/dL High 5-40 [facility] Comment on above: Order Comment: 109-1 Performed By: #### L 100.0100, L500.4100 ####[facility] [address] [place], [address] Triglyceride [Mass/Vol] 271 mg/dL High [facility] Comment on above: Order Comment: 109-1 Result Comment: The drugs N-Acetylcysteine and Metamizole may falselydepress this assay.Serum Triglycerides Reference Interval Normal <150 mg/dL Borderline high 150 - 199 mg/dL High 200 - 499 mg/dL Very High > or = 500 mg/dL Performed By: #### L 100.0100, L500.4100 ####[facility] [address] [place], [address] CBC W/Diff, Automatedon 08- Absolute Lymph 2.51 X10 3/uL Normal 0.83-4.51 [facility] Comment on above: Order Comment: 109.1 Performed By: #### L 100.0100 ####[facility] [address] [place], [address] Absolute Neut 4.1 X10 3/uL Normal 2.0-7.7 [facility] Comment on above: Order Comment: 109.1 Performed By: #### L 100.0100 ####[facility] [address] [place], [address] Basophils/100 WBC (Bld) 0.5 % Normal 0-1 [facility] Comment on above: Order Comment: 109.1 Performed By: #### L 100.0100 ####[facility] [address] [place], [address] Eosinophils/100 WBC (Bld) 0.8 % Normal 0-5 [facility] Comment on above: Order Comment: 109.1 Performed By: #### L 100.0100 ####[facility] [address] [place], [address] Erythrocyte distribution width (RBC) [Ratio] 13.1 % Normal 11.6-14.6 [facility] Comment on above: Order Comment: 109.1 Performed By: #### L 100.0100 ####[facility] [address] [place], [address] Hematocrit (Bld) [Volume fraction] 40.5 % Normal 40-54 [facility] Comment on above: Order Comment: 109.1 Performed By: #### L 100.0100 ####[facility] [address] [place], [address] Hemoglobin (Bld) [Mass/Vol] 12.9 g/dL Low 13.0-16.5 [facility] Comment on above: Order Comment: 109.1 Performed By: #### L 100.0100 ####[facility] [address] [place], [address] IG% 0.400 Normal 0.0-0.9 [facility] Comment on above: Order Comment: 109.1 Result Comment: IG% - Immature Granulocytes (promyelocytes, myelocytes andmetamyelocytes) > 1% indicates that a LEFT SHIFT is Present. Performed By: #### L 100.0100 ####[facility] [address] [place], [address] Lymphocytes/100 WBC (Bld) 33.5 % Normal 19-41 [facility] Comment on above: Order Comment: 109.1 Performed By: #### L 100.0100 ####[facility] [address] [place], [address] MCH (RBC) [Entitic mass] 29.3 pg Normal 27.0-32.0 [facility] Comment on above: Order Comment: 109.1 Performed By: #### L 100.0100 ####[facility] [address] [place], [address] MCHC (RBC) [Mass/Vol] 31.9 g/dL Low 32-36 [facility] Comment on above: Order Comment: 109.1 Performed By: #### L 100.0100 ####[facility] [address] [place], [address] MCV (RBC) [Entitic vol] 92.0 fL Normal 80-94 [facility] Comment on above: Order Comment: 109.1 Performed By: #### L 100.0100 ####[facility] [address] [place], [address] Monocytes/100 WBC (Bld) 10.7 % High 0-10 [facility] Comment on above: Order Comment: 109.1 Performed By: #### L 100.0100 ####[facility] [address] [place], [address] Neutrophils/100 WBC (Bld) 54.1 % Normal 47-70 [facility] Comment on above: Order Comment: 109.1 Performed By: #### L 100.0100 ####[facility] [address] [place], [address] Nucleated RBC (Bld) [#/Vol] 0 10*3/uL Normal 0-5 [facility] Comment on above: Order Comment: 109.1 Performed By: #### L 100.0100 ####[facility] [address] [place], [address] Platelet mean volume (Bld) [Entitic vol] 10.8 fL Normal 6.2-12.0 [facility] Comment on above: Order Comment: 109.1 Performed By: #### L 100.0100 ####[facility] [address] [place], [address] Platelets (Bld) [#/Vol] 193 10*3/uL Normal 150-450 [facility] Comment on above: Order Comment: 109.1 Performed By: #### L 100.0100 ####[facility] [address] [place], [address] RBC (Bld) [#/Vol] 4.40 10*6/uL Low 4.6-6.2 [facility] Comment on above: Order Comment: 109.1 Performed By: #### L 100.0100 ####[facility] [address] [place], [address] RDW SD 44.0 fl High 35.1-43.9 [facility] Comment on above: Order Comment: 109.1 Performed By: #### L 100.0100 ####[facility] [address] [place], [address] WBC (Bld) [#/Vol] 7.5 10*3/uL Normal 4.4-11.0 [facility] Comment on above: Order Comment: 109.1 Performed By: #### L 100.0100 ####[facility] [address] [place], [address] Progress Noteon 11-22-2023 Progress Note Speech-Language Pathology SPEECH LANGUAGE PATHOLOGY [facility] Modified Barium Swallow Study Patient [...] despite effort. 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 Frequency: Per treating CLOTH SHADER Barriers: large osteophytes, bridging with anterior projection [...] Prior MBSS?: No, unable to locate in [facility] Current Diet: Puree diet with ?liquid (no information from [place]) Textures tested: - thin liquid, (cup edge) - mildly thick liquid, (cup edge) - puree, (teaspoon) Patient position: lateral Past Medical History: Past Medical History: Diagnosis Date TREVER (acute kidney injury) ([facility]) ([facility]) Alcohol abuse 07/08/2018 Anxiety C1 spinal cord injury ([facility]) ([facility]) Depression Fall 06/2018 Schizophrenia ([facility]) Past Surgical History: Past Surgical History: Procedure Laterality Date CERVICAL FUSION 07/09/2014 C2-6 cervical fusion GASTROSTOMY TUBE PLACEMENT 07/13/2018 TRACHEOSTOMY 07/13/2018 Admission Diagnosis: Patient Active Problem List Diagnosis Date Noted Respiratory syncytial virus (RSV) 03/22/2021 Hypoxia 03/19/2021 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[facility]) ([facility]) 08/16/2018 Chronic latent schizophrenia ([facility]) 08/15/2018 Prolonged Q-T interval on ECG 08/15/2018 Abdominal wall abscess 08/15/2018 Central cord syndrome ([facility]) ([facility]) 08/15/2018 Respiratory failure after trauma ([facility]) 08/15/2018 Pressure ulcer of sacral region, stage 2 ([facility]) 08/09/2018 Urinary retention 07/28/2018 Acute respiratory failure with hypoxia ([facility]) 07/26/2018 Mild bibasilar atelectasis 07/26/2018 Hospital-acquired pneumonia 07/26/2018 Bilateral pleural effusion 07/26/2018 Ileus ([facility]) ([facility]) 07/23/2018 TREVER (acute kidney injury) ([facility]) 07/23/2018 Hypokalemia 07/21/2018 Vertebral artery occlusion, bilateral 07/11/2018 Vitamin D insufficiency 07/10/2018 Alcohol abuse 07/08/2018 Closed wedge compression fracture of first thoracic vertebra ([facility]) 07/08/2018 Traumatic nondisp spondylolisthesis of C3 vertebra with closed fx, initial encounter ([facility]) 07/08/2018 Closed fracture dislocation of cervical spine ([facility]) 07/08/2018 Pain: Pt denies any current pain. Reason for current admission: Pt with h/o of PEG and trach from 2019. Pt is currently decannulated. H/o It [employer] Consultant cervical fusion C2-C6. Noted very large connective [...] posterior spill (more content not included)... Normal [facility] RF videography Hypopharynx a nd Esophagus Views for swallowing function W speech and W barium contrast Rosalino 11-22-2023 Abnormal findings as described above. Please refer to the speech pathologist 's report for additional details and recommendations. Report Dictated on Electronically Signed By: Nir Cancino MD Electronically Signed Date/Time: 11/22/2023 1:57 PM EDT [facility] [employer] Patient Name: KATHYA HOOPER : 1955 [...] not visualized in this exam for evaluation. [facility] Nir Cancino MD - 11/22/2023 [facility] Name: [facility] 1955 [id number] Exam Date/Time: 11/22/2023 12:53 Procedure: FL MODIFIED [...] Electronically Signed Date/Time: 11/22/2023 1:57 PM EDT [facility] Radiology Study observation (narrative) [facility] RF videography Hypopharynx a nd Esophagus Views for swallowing function W speech and W barium contrast POOrdered By: Nir Cancino on 11-22-2023 [facility] Work Phone: CBC W Auto Differential pane l (Bld)on 10-02-2023 Basophils (Bld) [#/Vol] 0.0 10*3/uL 0.0 - 0.2 10*3/uL [facility] Basophils/100 WBC (Bld) 0.3 % 0.0 - 2.0 % [facility] Eosinophils (Bld) [#/Vol] 0.0 10*3/uL 0.0 - 0.5 10*3/uL [facility] Eosinophils/100 WBC (Bld) 0.0 % 0.0 - 6.0 % [facility] Erythrocyte distribution width (RBC) [Ratio] 13.0 % 11.5 - 15.0 % [facility] Hematocrit (Bld) [Volume fraction] 37.8 % Low 40.0 - 52.0 % [facility] Hemoglobin (Bld) [Mass/Vol] 13.0 g/dL 13.0 - 18.0 g/dL [facility] Immature granulocytes (Bld) [#/Vol] 0.1 10*3/uL High NINF - 0.1 10*3/uL [facility] Immature granulocytes/100 WBC (Bld) 0.5 % 0.0 - 2.0 % [facility] Interpretation and review of laboratory results Abnormal [facility] Lymphocytes (Bld) [#/Vol] 0.9 10*3/uL Low 1.0 - 4.3 10*3/uL [facility] Lymphocytes/100 WBC (Bld) 8.4 % Low 15.0 - 45.0 % [facility] MCH (RBC) [Entitic mass] 30.3 pg 26.0 - 34.0 pg [facility] MCHC (RBC) [Mass/Vol] 34.4 % 30.5 - 36.0 % [facility] MCV (RBC) [Entitic vol] 88.1 fL 77.0 - 99.0 fL [facility] Monocytes (Bld) [#/Vol] 0.9 10*3/uL 0.0 - 0.9 10*3/uL [facility] Monocytes/100 WBC (Bld) 8.2 % 5.0 - 13.0 % [facility] Neutrophils (Bld) [#/Vol] 8.9 10*3/uL High 1.8 - 7.5 10*3/uL [facility] Neutrophils/100 WBC (Bld) 82.6 % High 38.0 - 82.0 % [facility] Nucleated RBC/100 WBC (Bld) [Ratio] 0.0 % [facility] Platelet mean volume (Bld) [Entitic vol] 10.7 fL 9.0 - 12.7 fL [facility] Platelets (Bld) [#/Vol] 148 10*3/uL 140 - 440 10*3/uL [facility] RBC (Bld) [#/Vol] 4.29 10*6/uL Low 4.40 - 5.9 0 10*6/uL [facility] WBC (Bld) [#/Vol] 10.7 10*3/uL 3.6 - 10.7 10*3/uL [facility] CBC WITH AUTO DIFFERENTIALon 10-02-2023 Basophils (Bld) [#/Vol] 0.0 10*3/uL Normal 0.0-0.2 [facility] Comment on above: Performed By: #### L [id number] #### Differential Tester: CYNDI LILLY ([id number]) [facility] [place] ([facility] [address] Basophils/100 WBC (Bld) 0.3 % Normal 0.0-2.0 [facility] Comment on above: Performed By: #### L [id number] #### Differential Tester: CYNDI LILLY ([id number]) [facility] [address] Eosinophils (Bld) [#/Vol] 0.0 10*3/uL Normal 0.0-0.5 [facility] Comment on above: Performed By: #### L [id number] #### Differential Tester: CYNDI LILLY ([id number]) [facility] [place] ([facility] [address] Eosinophils/100 WBC (Bld) 0.0 % Normal 0.0-6.0 [facility] Comment on above: Performed By: #### L [id number] #### Differential Tester: CYNDI LILLY ([id number]) [facility] [place] ([facility]) [address] Erythrocyte distribution width (RBC) [Ratio] 13.0 % Normal 11.5-15.0 [facility] Comment on above: Performed By: #### L [id number] #### Differential Tester: CYNDI LILLY ([id number]) [facility] [place] ([facility] [address] Hematocrit (Bld) [Volume fraction] 37.8 % Low 40.0-52.0 [facility] Comment on above: Performed By: #### L [id number] #### Differential Tester: CYNDI DRIVERRADHA ([id number]) [facility] ([facility]) [address] Hemoglobin (Bld) [Mass/Vol] 13.0 g/dL Normal 13.0-18.0 [facility] Comment on above: Performed By: #### L [id number] #### Differential Tester: CYNDI DRIVERRADHA ([id number]) [facility] ([facility]) [address] IMMATURE GRANS % 0.5 % Normal 0.0-2.0 [facility] Comment on above: Performed By: #### L [id number] #### Differential Tester: CYNDI DRIVERRADHA ([id number]) [facility] ([facility]) [address] IMMATURE GRANS ABSOLUTE 0.1 10*3/uL High <0.1 [facility] Comment on above: Performed By: #### L [id number] #### Differential Tester: CYNDI DRIVERRADHA ([id number]) [facility] ([facility]) [address] Lymphocytes (Bld) [#/Vol] 0.9 10*3/uL Low 1.0-4.3 [facility] Comment on above: Performed By: #### L [id number] #### Differential Tester: CYNDI DRIVERRADHA ([id number]) [facility] ([facility]) [address] Lymphocytes/100 WBC (Bld) 8.4 % Low 15.0-45.0 [facility] Comment on above: Performed By: #### L [id number] #### Differential Tester: CYNDI DRIVERRADHA ([id number]) [facility] ([facility]) [address] [place] [address] [place] MCH (RBC) [Entitic mass] 30.3 pg Normal 26.0-34.0 [facility] Comment on above: Performed By: #### L [id number] #### Differential Tester: CYNDI DRIVERRADHA ([id number]) [facility] ([facility]) [address] MCHC 34.4 % Normal 30.5-36.0 [facility] Comment on above: Performed By: #### L [id number] #### Differential Tester: CYNDI DRIVERRADHA ([id number]) [facility] [place] ([facility]) [address] MCV (RBC) [Entitic vol] 88.1 fL Normal 77.0-99.0 [facility] Comment on above: Performed By: #### L [id number] #### Differential Tester: CYNDI DRIVERRADHA ([id number]) [facility] [place] ([facility] [address] [place] [address] [place] Monocytes (Bld) [#/Vol] 0.9 10*3/uL Normal 0.0-0.9 [facility] Comment on above: Performed By: #### L [id number] #### Differential Tester: CYNDI LILLY ([id number]) [facility] [place] ([facility]) [address] [place] [address] [place] Monocytes/100 WBC (Bld) 8.2 % Normal 5.0-13.0 [facility] Comment on above: Performed By: #### L [id number] #### Differential Tester: CYNDI DRIVERRADHA ([id number]) [facility] [place] ([facility]) [address] [place] [address] [place] NEUTROPHILS ABSOLUTE 8.9 10*3/uL High 1.8-7.5 [facility] Comment on above: Performed By: #### L [id number] #### Differential Tester: CYNDI LILLY ([id number]) [facility] [place] ([facility]) [address] [place] [address] [place] Neutrophils/100 WBC (Bld) 82.6 % High 38.0-82.0 [facility] Comment on above: Performed By: #### L [id number] #### Differential Tester: CYNDI LILLY ([id number]) [facility] [address] NRBC 0.0 /100 WBCs Normal 0.0-2.0 [facility] Comment on above: Performed By: #### L [id number] #### Differential Tester: CYNDI LILLY ([id number]) [facility] ([facility]) [address] Platelet mean volume (Bld) [Entitic vol] 10.7 fL Normal 9.0-12.7 [facility] Comment on above: Performed By: #### L [id number] #### Differential Tester: CYNDI LILLY ([id number]) [facility] ([facility]) [address] [place] [address] [place] Platelets (Bld) [#/Vol] 148 10*3/uL Normal 140-440 [facility] Comment on above: Performed By: #### L [id number] #### Differential Tester: CYNDI LILLY ([id number]) [facility] ([facility]) [address] RBC (Bld) [#/Vol] 4.29 10*6/uL Low 4.40-5.90 [facility] Comment on above: Performed By: #### L [id number] #### Differential Tester: CYNDI LILLY ([id number]) [facility] ([facility]) [address] [place] [address] [place] WBC (Bld) [#/Vol] 10.7 10*3/uL Normal 3.6-10.7 [facility] Comment on above: Performed By: #### L [id number] #### Differential Tester: CYNDI LILLY ([id number]) [facility] ([facility]) [address] COMPREHENSIVE METABOLIC PANE Reji 10-02-2023 Albumin [Mass/Vol] 3.7 g/dL Normal 3.5-5.0 [facility] Comment on above: Performed By: #### Alban AB17, [id number] ####Differential Tester: CYNDI LILLY ([id number])[facility] [place] ([facility])[address] ALP [Catalytic activity/Vol] 78 U/L Normal 38-126 [facility] Comment on above: Performed By: #### L AB17, [id number] ####Differential Tester: CYNDI LILLY ([id number])[facility] [place] ([facility])[address] ALT [Catalytic activity/Vol] 21 U/L Normal 0-49 [facility] Comment on above: Performed By: #### Alban AB17, [id number] ####Differential Tester: CYNDI LILLY ([id number])[facility] [place] (SBHLAB)[address] Anion gap [Moles/Vol] 10 mmol/L Normal 3-13 [facility] Comment on above: Performed By: #### Alban AB17, [id number] ####Differential Tester: CYNDI LILLY ([id number])[facility] [place] (SBHLAB)155 97 [address] AST [Catalytic activity/Vol] 29 U/L Normal 15-46 [facility] Comment on above: Performed By: #### L AB17, [id number] ####Differential Tester: CYNDI LILLY ([id number])[facility] [place] (SB[facility])[address] Bilirubin [Mass/Vol] 1.1 mg/dL Normal 0.2-1.3 [facility] Comment on above: Performed By: #### L AB17, [id number] ####Differential Tester: CYNDI LILLY ([id number])[facility] [place] ([facility])[address] Calcium [Mass/Vol] 7.8 mg/dL Low 8.4-10.4 [facility] Comment on above: Performed By: #### Alban YEH17, [id number] ####Differential Tester: CYNDI LILLY ([id number])[facility] ([facility])[address] Chloride [Moles/Vol] 102 mmol/L Normal 98-107 [facility] Comment on above: Performed By: #### Alban YEH17, [id number] ####Differential Tester: CYNDI LILLY ([id number])[facility] (SBHLAB)[address] CO2 [Moles/Vol] 23 mmol/L Normal 22-30 [facility] Comment on above: Performed By: #### Alban SMITH, [id number] ####Differential Tester: CYNDI LILLY ([id number])[facility] (SBHLAB)[address] Creatinine [Mass/Vol] 0.58 mg/dL Low 0.66-1.25 [facility] Comment on above: Performed By: #### Alban YEH17, [id number] ####Differential Tester: CYNDI LILLY ([id number])[facility] GLOMERULAR FILTRATION RATE ML/MIN/1.73 SQ M.PREDICTED >90.0 Normal >60.0 [facility] Comment on above: Result Comment: Calc ulation based on the Chronic Kidney Disease Epidemiology Collaboration (CKD-EPI) equation refit without adjustment for race Performed By: #### L 17, [id number] ####Differential Tester: CYNDI LILLY ([id number])[facility] (SBHLAB)[address] Glucose [Mass/Vol] 111 mg/dL High 70-100 [facility] Comment on above: Performed By: #### Alban YEH17, [id number] ####Differential Tester: CYNDI DRIVERRADHA ([id number])[facility] [place] (SB[facility]AB)[address] Potassium [Moles/Vol] 4.0 mmol/L Normal 3.5-5.1 [facility] Comment on above: Performed By: #### L AB17, [id number] ####Differential Tester: CYNDI LILLY ([id number])[facility] [place] (SBHLAB)[address] Protein [Mass/Vol] 6.5 g/dL Normal 6.3-8.2 [facility] Comment on above: Performed By: #### L AB17, [id number] ####Differential Tester: CYNDI LILLY ([id number])[facility] (SBHL[facility])[address] [place] [address] Sodium [Moles/Vol] 135 mmol/L Normal 135-145 [facility] Comment on above: Performed By: #### L AB17, [id number] ####Differential Tester: CYNDI DRIVERRADHA ([id number])[facility] ([facility])[address] Urea nitrogen [Mass/Vol] 18 mg/dL Normal 9-20 [facility] Comment on above: Performed By: #### L AB17, [id number] ####Differential Tester: CYNDI LILLY ([id number])[facility] (SBHLAB)[address] [place] [address] CT HEAD WO IV CONTRASTon CT HEAD WO IV CONTRAST [facility] Name[facility] 1955 [id number] Exam Date/Time: 10/02/2023 11:03 Procedure: CT HEAD WO IV CONTRAST Ordering Provider: TOLEDO AMY Reason For Exam: Neuro deficit, acute, stroke suspected EXAMINATION: CT HEAD WO IV CONTRAST HISTORY: Neuro deficit, acute, stroke suspected - - - - - [id number] - - - - TECHNIQUE: CT head [...] she has seen him for that day, electrician station assistant did not report any problems. EMS states [...] has no complaints at this time. Normal [facility] CT Head WO contraston [address] evidence of an acute intracranial abnormality. Report Dictated on Electronically Signed By: Maria Eugenia Ruiz MD Electronically Signed Date/Time: 10/02/2023 11:09 AM T [facility] Patient Name: KATHYA HOOPER : 1955 Exam Date/Time: 10/02/2023 11:03 Procedure: CT HEAD WO IV CONTRAST Ordering Provider: TOLEDO AMY Reason For Exam: Neuro deficit, acute, stroke suspected EXAMINATION: CT HEAD WO IV CONTRAST HISTORY: Neuro deficit, acute, stroke suspected - - - - - [id number] - - - - TECHNIQUE: CT head [...] 10/02/2023 [facility] Name: [facility]OPER : 1955 [id number] Exam Date/Time: 10/02/2023 11:03 Procedure: CT HEAD WO IV CONTRAST Ordering Provider: TOLEDO AMY Reason For Exam: Neuro deficit, acute, stroke suspected EXAMINATION: CT HEAD WO IV CONTRAST HISTORY: Neuro deficit, acute, stroke suspected - - - - - [id number] - - - - TECHNIQUE: CT head [...] Electronically Signed Date/Time: 10/02/2023 11:09 AM EDT [facility] Radiology Study observation (narrative) [facility] alth CT Head WO contrastOrdered B y: Maria Eugenia Ruiz on 10-02-2023 [employer] Work Phone: Comprehensive metabolic 1998 panelon 10-02-2023 Albumin [Mass/Vol] 3.7 g/dL 3.5 - 5.0 g/dL [facility] ALP [Catalytic activity/Vol] 78 U/L 38 - 126 U/L [facility] ALT [Catalytic activity/Vol] 21 U/L 0 - 49 U/L [facility] Anion gap [Moles/Vol] 10 mmol/L 3 - 13 mmol/L [facility] AST [Catalytic activity/Vol] 29 U/L 15 - 46 U/L [facility] Bilirubin [Mass/Vol] 1.1 mg/dL 0.2 - 1 .3 mg/dL [facility] Calcium [Mass/Vol] 7.8 mg/dL Low 8.4 - 10. 4 mg/dL [facility] Chloride [Moles/Vol] 102 mmol/L 98 - 10 7 mmol/L [facility] CO2 [Moles/Vol] 23 mmol/L 22 - 30 mmol/L [facility] Creatinine [Mass/Vol] 0.58 mg/dL Low 0.66 - 1.25 mg/dL [facility] GFR/1.73 sq M.predicted MDRD (S/P/Bld) [Vol rate/Area] - PINF [facility] Comment on above: Calculation based on the Chronic Kidney Disease Epidemiology Collaboration (CKD-EPI) equation refit without adjustment for race Glucose [Mass/Vol] 111 mg/dL High 70 - 100 mg/dL [facility] Interpretation and review of laboratory results Abnormal [facility] Potassium [Moles/Vol] 4.0 mmol/L 3.5 - 5.1 mmol/L [facility] Protein [Mass/Vol] 6.5 g/dL 6.3 - 8.2 g/dL [facility] Sodium [Moles/Vol] 135 mmol/L 135 - 145 mmol/L [facility] Urea nitrogen [Mass/Vol] 18 mg/dL 9 - 20 mg/dL [facility] ECG 12-LEADon 10-02-2023 ECG 12-LEAD IMPRESSION: Sinus tachycardia Left bundle branch block ST elevation secondary to IVCD Electronically Signed On 10-02-2023 12:40:15 EDT by Fei Farooq ED Nursing Noteon 10-02-2023 ED Nursing Note [facility] at bedside at this time Mami Lantigua RN 10/02/23 1029 Normal [facility] ED Nursing Note This RN gave report to Marnie at [facility] at this time Mami Lantigua RN 10/02/23 1358 Normal [facility] ED Nursing Note This RN went to evaluate patient, was on 2L o2 and does not wear at baseline, plan is dc, this RN turned o2 off to trial patient, spo2 monitor on Mami Lantigua RN 10/02/23 1325 Normal [facility] ED Nursing Note Pt to ct via cart Eloisa Alfaro RN 10/02/23 1043 Normal [facility] ED Nursing Note Pt was brought in vi [facility] from [facility] for Left sided facial droop. Per EMS nurse is new and does not know patient very well but he is A&O x 2 at baseline. Per EMS the nurse states it was 20 mins ago. Contacted nurse that was caring for him and she states that was the first time she has seen him for that day, electrician station assistant did not report any problems. EMS states [...] the facility. Hx of schizophrenia. BS 131. Normal [facility] ED Provider Noteon ED Provider Note [facility] ED eMERGENCY dEPARTMENT eNCOUnter Pt [...] to the emergency department from a local residential facility where he is currently a resident. [...] History: Diagnosis Date TREVER (acute kidney injury) ([facility]) ([facility]) Alcohol abuse 07/08/2018 Anxiety C1 spinal cord injury ([facility]) ([facility]) Depression Fall 06/2018 Schizophrenia ([facility]) SURGICALHISTORY Past Surgical History: Procedure [...] EmergencyPhysician): Interpret (more content not included)... Normal [facility] ED Provider Note Emergency Department Encounter [facility] ED Patient: Kahtya Hooper : 1955 Date of Evaluation: 10/02/2023 [...] [employer] Fei Farooq MD 10/02/23 1129 Normal [facility] Laboratory - Chemistry and C hemistry - challengeon 10-02-2023 Troponin I.cardiac [Mass/Vol] ng/mL NINF - 0.034 ng/mL [facility] Laboratory - Coagulationon 0 10-02-2023 aPTT Coag (PPP) [Time] 29.6 s 20.0 - 30.5 s [facility] INR Coag (PPP) [Relative time] 1.1 {INR} 0.9 - 1.1 [facility] Comment on above: Recommended Anticoag [...] [Time] 11.6 s 9.0 - 12.0 s [facility] No Panel Informationon 10-01 Heart Rate 103 bpm [facility] P [place] 48 degrees [facility] RI Interval 172 ms [facility] QRS [place] -38 degrees [facility] QRSD Interval 159 ms [facility] QT Interval 405 ms [facility] QTC Interval 532 ms [facility] T Wave [place] 109 degrees [facility] Sinus tachycardia Left bundle branch block ST elevation secondary to IVCD Electronically Signed On 10-02-2023 12:40:15 EDT by Fei Farooq CV Fei Lopez MD - 10/02/2023 IMPRESSION: Sinus tachycardia Left bundle branch block ST elevation secondary to IVCD Electronically Signed On 10-02-2023 12:40:15 EDT by Fei Farooq [facility] Interpretation and review of laboratory results Normal [facility] PROTIME AND APTTon aPTT Coag (Bld) [Time] 29.6 s Normal 20.0-30.5 [facility] Comment on above: Performed By: #### L [id number] ####Differential Tester: CYNDI LILLY ([id number])[facility] ([facility])[address] INR Coag (PPP) [Relative time] 1.1 {INR} Normal 0.9-1.1 [facility] Comment on above: Result Comment: Yefri [...] prevent Myocardial Infarction Performed By: #### L [id number] ####Differential Tester: CYNDI LILLY ([id number])[facility]ITAL[facility] [place] ([facility])[address] [place] [address] PT Coag (PPP) [Time] 11.6 s Normal 9.0-12.0 [facility] Comment on above: Performed By: #### L [id number] ####Differential Tester: CYNDI LILLY ([id number])[facility]ITAL[facility]uly [facility] ([facility])[address] [place] [address] TROPONIN, WITH SERIAL REFLEX on 10-02-2023 Troponin I.cardiac [Mass/Vol] ng/mL Normal <0.034 [facility] Comment on above: Result Comment: SHARON Stevens COMMENTS: Patients with high levels of Biotin oral intake (ie >5 mg/day) may have falsely decreased Troponin levels. Performed By: #### L AB17, [id number] ####Differential Tester: CYNDI LILLY ([id number])[facility] ([facility])[address] Troponin I.cardiac [Mass/Vol ]on 10-02-2023 Interpretation and review of laboratory results Normal [facility] Patients with high levels of Biotin oral intake (ie >5 mg/day) may have falsely decreased Troponin levels. [facility] XR Chest Single viewon 10-01 No acute cardiopulmonary disease. Report Dictated on Electronically Signed By: Maria Eugenia Ruiz MD Electronically Signed Date/Time: 10/02/2023 11:06 AM EDT [facility] Patient Name: KATHYA HOOPER DOB: 1955 Exam Date/Time: 10/02/2023 11:11 Procedure: XR CHEST 1 VIEW Ordering Provider: TOLEDO AMY Reason For Exam: DYSPNEA AP CHEST X-RAY CLINICAL INDICATION: DYSPNEA TECHNIQUE: AP portable x-ray of the chest. COMPARISON: March 19, 2021 FINDINGS: Lines/Tubes: None Heart/Mediastinum: Within normal limits Lungs: Well-inflated and clear. No pneumothorax. Bones: Degenerative changes are seen in the thoracic spine and shoulders. No acute osseous findings. [facility] Maria Eugenia Ruiz MD - 10/02/2023 Patient Name: KATHYA HOOPER DOB: 1955 Exam Date/Time: 10/02/2023 11:11 Procedure: XR [...] Signed Date/Time: 10/02/2023 11:06 AM EDT [facility] Radiology Study observation (narrative) Ericka sarah Absolute lymphocyte countOrd ered By: Renard Burgos on 08-07-2023 Lymphocytes Auto (Unsp spec) [#/Vol] 2.23 10*3/uL 0.83-4.51 [facility] Automated lymphocyte count a s percentage of total leukocytesOrdered By: Renard Burgos on 08-07-2023 Lymphocytes/100 WBC Auto (Unsp spec) 23.9 % 19-41 [facility] Basophil percentageOrdered B y: Renard Burgos on 08-07-2023 Basophils/100 WBC (Bld) 0.4 % 0-1 [facility] Eosinophils/100 WBC (Bld) 0.4 % 0-5 [facility] Hemoglobin (Bld) [Mass/Vol] 13.9 g/dL 13.0-16.5 [facility] Monocytes/100 WBC (Bld) 8.0 % 0-10 [facility] Neutrophils (Bld) [#/Vol] 6.2 10*3/uL 2.0-7.7 [facility] Neutrophils/100 WBC (Bld) 66.9 % 47-70 [facility] WBC (Bld) [#/Vol] 9.3 10*3/uL 4.4-11.0 [facility] Determination of erythrocyte mean corpuscular volume (MCV)Ordered By: Renard Burgos on 08-07-2023 MCV (RBC) [Entitic vol] 90.0 fL 80-94 [facility] Erythrocyte distribution wid th ratioOrdered By: Renard Burgos on 08-07-2023 Erythrocyte distribution width (RBC) [Ratio] 13.0 % 11.6-14.6 [facility] Erythrocyte distribution wid th standard deviationOrdered By: Renard Burgos on 08-07-2023 Erythrocyte distribution width (RBC) [Entitic vol] 42.5 fL 35.1-43.9 [facility] Hematocrit Auto (Bld) [Volum e fraction]Ordered By: Renard Burgos on 08-07-2023 Hematocrit (Bld) [Volume fraction] 42.5 % 40-54 [facility] Immature granulocytes/100 WB C Auto (Bld)Ordered By: Renard Burgos on 08-07-2023 Immature granulocytes/100 WBC (Bld) 0.400 % 0.0-0.9 [facility] Comment on above: IG% - Immature Granu locytes (promyelocytes, myelocytes and metamyelocytes) > 1% indicates that a LEFT SHIFT is Present. Laboratory - Hematology and Cell countsOrdered By: Renard Burgos on 08-07-2023 MCH (RBC) [Entitic mass] 29.4 pg 27.0-32.0 [facility] MCHC (RBC) [Mass/Vol] 32.7 g/dL 32-36 [facility] Nucleated RBC/100 WBC (Bld) [Ratio] 0 % 0-5 [facility] Platelet mean volume (Bld) [Entitic vol] 10.7 fL 6.2-12.0 [facility] Platelets (Bld) [#/Vol] 210 10*3/uL 150-450 [facility] RBC Auto (Bld) [#/Vol]Ordere d By: Renard Burgos on 08-07-2023 RBC (Bld) [#/Vol] 4.72 10*6/uL 4.6-6.2 [facility] Absolute lymphocyte countOrd ered By: Renard Burgos on 07-31-2023 Lymphocytes Auto (Unsp spec) [#/Vol] 2.04 10*3/uL 0.83-4.51 [facility] Automated lymphocyte count a s percentage of total leukocytesOrdered By: Renard Burgos on 07-31-2023 Lymphocytes/100 WBC Auto (Unsp spec) 24.2 % 19-41 [facility] Basophil percentageOrdered B y: Renard Burgos on 07-31-2023 Basophils/100 WBC (Bld) 0.6 % 0-1 [facility] Eosinophils/100 WBC (Bld) 0.6 % 0-5 [facility] Hemoglobin (Bld) [Mass/Vol] 13.9 g/dL 13.0-16.5 [facility] Monocytes/100 WBC (Bld) 8.5 % 0-10 [facility] Neutrophils (Bld) [#/Vol] 5.5 10*3/uL 2.0-7.7 [facility] Neutrophils/100 WBC (Bld) 65.7 % 47-70 [facility] WBC (Bld) [#/Vol] 8.4 10*3/uL 4.4-11.0 [facility] Determination of erythrocyte mean corpuscular volume (MCV)Ordered By: Renard Burgos on 07-31-2023 MCV (RBC) [Entitic vol] 89.7 fL 80-94 [facility] Erythrocyte distribution wid th ratioOrdered By: Renard Burgos on 07-31-2023 Erythrocyte distribution width (RBC) [Ratio] 12.8 % 11.6-14.6 [facility] Erythrocyte distribution wid th standard deviationOrdered By: Renard Burgos on 07-31-2023 Erythrocyte distribution width (RBC) [Entitic vol] 42.2 fL 35.1-43.9 [facility] Hematocrit Auto (Bld) [Volum e fraction]Ordered By: Renard Burgos on 07-31-2023 Hematocrit (Bld) [Volume fraction] 41.7 % 40-54 [facility] Immature granulocytes/100 WB C Auto (Bld)Ordered By: Renard Burgos on 07-31-2023 Immature granulocytes/100 WBC (Bld) 0.400 % 0.0-0.9 [facility] Comment on above: IG% - Immature Granu locytes (promyelocytes, myelocytes and metamyelocytes) > 1% indicates that a LEFT SHIFT is Present. Laboratory - Hematology and Cell countsOrdered By: Renard Burgos on 07-31-2023 MCH (RBC) [Entitic mass] 29.9 pg 27.0-32.0 [facility] MCHC (RBC) [Mass/Vol] 33.3 g/dL 32-36 [facility] Nucleated RBC/100 WBC (Bld) [Ratio] 0 % 0-5 [facility] Platelet mean volume (Bld) [Entitic vol] 10.6 fL 6.2-12.0 [facility] Platelets (Bld) [#/Vol] 201 10*3/uL 150-450 [facility] RBC Auto (Bld) [#/Vol]Ordere d By: Renard Burgos on 07-31-2023 RBC (Bld) [#/Vol] 4.65 10*6/uL 4.6-6.2 [facility] Absolute lymphocyte countOrd ered By: Renard Burgos on 07-24-2023 Lymphocytes Auto (Unsp spec) [#/Vol] 2.00 10*3/uL 0.83-4.51 [facility] Automated lymphocyte count a s percentage of total leukocytesOrdered By: Renard Burgos on 07-24-2023 Lymphocytes/100 WBC Auto (Unsp spec) 26.2 % 19-41 [facility] Basophil percentageOrdered B y: Renard Burgos on 07-24-2023 Basophils/100 WBC (Bld) 0.7 % 0-1 [facility] Eosinophils/100 WBC (Bld) 0.7 % 0-5 [facility] Hemoglobin (Bld) [Mass/Vol] 14.2 g/dL 13.0-16.5 [facility] Monocytes/100 WBC (Bld) 6.4 % 0-10 [facility] Neutrophils (Bld) [#/Vol] 5.0 10*3/uL 2.0-7.7 [facility] Neutrophils/100 WBC (Bld) 65.6 % 47-70 [facility] WBC (Bld) [#/Vol] 7.6 10*3/uL 4.4-11.0 [facility] Determination of erythrocyte mean corpuscular volume (MCV)Ordered By: Renard Burgos on 07-24-2023 MCV (RBC) [Entitic vol] 89.8 fL 80-94 [facility] Erythrocyte distribution wid th ratioOrdered By: Renard Burgos on 07-24-2023 Erythrocyte distribution width (RBC) [Ratio] 12.8 % 11.6-14.6 [facility] Erythrocyte distribution wid th standard deviationOrdered By: Renard Burgos on 07-24-2023 Erythrocyte distribution width (RBC) [Entitic vol] 42.0 fL 35.1-43.9 [facility] Hematocrit Auto (Bld) [Volum e fraction]Ordered By: Renard Burgos on 07-24-2023 Hematocrit (Bld) [Volume fraction] 43.3 % 40-54 [facility] Immature granulocytes/100 WB C Auto (Bld)Ordered By: Renard Burgos on 07-24-2023 Immature granulocytes/100 WBC (Bld) 0.400 % 0.0-0.9 [facility] Comment on above: IG% - Immature Granu locytes (promyelocytes, myelocytes and metamyelocytes) > 1% indicates that a LEFT SHIFT is Present. Laboratory - Hematology and Cell countsOrdered By: Renard Burgos on 07-24-2023 MCH (RBC) [Entitic mass] 29.5 pg 27.0-32.0 [facility] MCHC (RBC) [Mass/Vol] 32.8 g/dL 32-36 [facility] Nucleated RBC/100 WBC (Bld) [Ratio] 0 % 0-5 [facility] Platelet mean volume (Bld) [Entitic vol] 11.0 fL 6.2-12.0 [facility] Platelets (Bld) [#/Vol] 215 10*3/uL 150-450 [facility] RBC Auto (Bld) [#/Vol]Ordere d By: Renard Burgos on 07-24-2023 RBC (Bld) [#/Vol] 4.82 10*6/uL 4.6-6.2 [facility] Absolute lymphocyte countOrd ered By: Renard Burgos on 07-17-2023 Lymphocytes Auto (Unsp spec) [#/Vol] 2.22 10*3/uL 0.83-4.51 [facility] Automated lymphocyte count a s percentage of total leukocytesOrdered By: Renard Burgos on 07-17-2023 Lymphocytes/100 WBC Auto (Unsp spec) 25.4 % 19-41 [facility] Basophil percentageOrdered B y: Renard Burgos on 07-17-2023 Basophils/100 WBC (Bld) 0.5 % 0-1 [facility] Cholesterol [Mass/Vol] 126 mg/dL <200 [facility] Comment on above: <200 mg/dL Desirable 200-240 mg/dL Borderline >240 mg/dL High Risk Eosinophils/100 WBC (Bld) 0.6 % 0-5 [facility] Hemoglobin (Bld) [Mass/Vol] 14.0 g/dL 13.0-16.5 [facility] Monocytes/100 WBC (Bld) 6.6 % 0-10 [facility] Neutrophils (Bld) [#/Vol] 5.8 10*3/uL 2.0-7.7 [facility] Neutrophils/100 WBC (Bld) 66.4 % 47-70 [facility] Triglyceride [Mass/Vol] 176 mg/dL <199 [facility] Comment on above: The drugs N-Acetylcy steine and Metamizole may falsely depress this assay.Serum Triglycerides Reference Interval Normal <150 mg/dL Borderline high 150 - 199 mg/dL High 200 - 499 mg/dL Very High > or = 500 mg/dL WBC (Bld) [#/Vol] 8.7 10*3/uL 4.4-11.0 [facility] Determination of erythrocyte mean corpuscular volume (MCV)Ordered By: Renard Burgos on 07-17-2023 MCV (RBC) [Entitic vol] 90.5 fL 80-94 [facility] Erythrocyte distribution wid th ratioOrdered By: Renard Burgos on 07-17-2023 Erythrocyte distribution width (RBC) [Ratio] 12.4 % 11.6-14.6 [facility] Erythrocyte distribution wid th standard deviationOrdered By: Renard Burgos on 07-17-2023 Erythrocyte distribution width (RBC) [Entitic vol] 41.1 fL 35.1-43.9 [facility] Hematocrit Auto (Bld) [Volum e fraction]Ordered By: Renard Burgos on 07-17-2023 Hematocrit (Bld) [Volume fraction] 42.8 % 40-54 [facility] Immature granulocytes/100 WB C Auto (Bld)Ordered By: Renard Burgos on 07-17-2023 Immature granulocytes/100 WBC (Bld) 0.500 % 0.0-0.9 [facility] Comment on above: IG% - Immature Granu locytes (promyelocytes, myelocytes and metamyelocytes) > 1% indicates that a LEFT SHIFT is Present. Laboratory - Chemistry and C hemistry - challengeOrdered By: Renard Burgos on 07-17-2023 Cholesterol in HDL [Mass/Vol] 28 mg/dL >40 [facility] Comment on above: The drugs N-Acetylcy steine and Metamizole may falsely depress this assay. Reference Range HDL <40 mg/dL Low HDL Cholesterol HDL >or= 60 mg/dL High HDL Cholesterol Cholesterol in LDL [Mass/Vol] 63 mg/dL 0-130 [facility] Laboratory - Hematology and Cell countsOrdered By: Renard Burgos on 07-17-2023 MCH (RBC) [Entitic mass] 29.6 pg 27.0-32.0 [facility] MCHC (RBC) [Mass/Vol] 32.7 g/dL 32-36 [facility] Nucleated RBC/100 WBC (Bld) [Ratio] 0 % 0-5 [facility] Platelet mean volume (Bld) [Entitic vol] 10.9 fL 6.2-12.0 [facility] Platelets (Bld) [#/Vol] 193 10*3/uL 150-450 [facility] No Panel InformationOrdered By: Renard Burgos on 07-17-2023 Vitamin D 25-Hydroxy 33.1 ng/mL [facility] Comment on above: Vitamin D 25(OH) Sta tus Range Deficiency <20 ng/mL (50nmol/L) Insufficiency 20 - 30 ng/mL (50 - 75 nmol/L) Sufficiency 30 - 100 ng/mL (75 - 250 nmol/L) Toxicity >100 ng/mL (>250 nmol/L) VLDL Cholesterol 35 mg/dL 5-40 [facility] RBC Auto (Bld) [#/Vol]Ordere d By: Renard Burgos on 07-17-2023 RBC (Bld) [#/Vol] 4.73 10*6/uL 4.6-6.2 [facility] Absolute lymphocyte countOrd ered By: Renard Burgos on 07-10-2023 Lymphocytes Auto (Unsp spec) [#/Vol] 2.14 10*3/uL 0.83-4.51 [facility] Automated lymphocyte count a s percentage of total leukocytesOrdered By: Renard Burgos on 07-10-2023 Lymphocytes/100 WBC Auto (Unsp spec) 24.7 % 19-41 [facility] Basophil percentageOrdered B y: Renard Burgos on 07-10-2023 Basophils/100 WBC (Bld) 0.3 % 0-1 [facility] Eosinophils/100 WBC (Bld) 0.3 % 0-5 [facility] Hemoglobin (Bld) [Mass/Vol] 13.8 g/dL 13.0-16.5 [facility] Monocytes/100 WBC (Bld) 7.8 % 0-10 [facility] Neutrophils (Bld) [#/Vol] 5.8 10*3/uL 2.0-7.7 [facility] Neutrophils/100 WBC (Bld) 66.4 % 47-70 [facility] WBC (Bld) [#/Vol] 8.7 10*3/uL 4.4-11.0 [facility] Determination of erythrocyte mean corpuscular volume (MCV)Ordered By: Renard Burgos on 07-10-2023 MCV (RBC) [Entitic vol] 88.9 fL 80-94 [facility] Erythrocyte distribution wid th ratioOrdered By: Renard Burgos on 07-10-2023 Erythrocyte distribution width (RBC) [Ratio] 12.6 % 11.6-14.6 [facility] Erythrocyte distribution wid th standard deviationOrdered By: Renard Burgos on 07-10-2023 Erythrocyte distribution width (RBC) [Entitic vol] 40.6 fL 35.1-43.9 [facility] Hematocrit Auto (Bld) [Volum e fraction]Ordered By: Renard Burgos on 07-10-2023 Hematocrit (Bld) [Volume fraction] 41.0 % 40-54 [facility] Immature granulocytes/100 WB C Auto (Bld)Ordered By: Renard Burgos on 07-10-2023 Immature granulocytes/100 WBC (Bld) 0.500 % 0.0-0.9 [facility] Comment on above: IG% - Immature Granu locytes (promyelocytes, myelocytes and metamyelocytes) > 1% indicates that a LEFT SHIFT is Present. Laboratory - Hematology and Cell countsOrdered By: Renard Burgos on 07-10-2023 MCH (RBC) [Entitic mass] 29.9 pg 27.0-32.0 [facility] MCHC (RBC) [Mass/Vol] 33.7 g/dL 32-36 [facility] Nucleated RBC/100 WBC (Bld) [Ratio] 0 % 0-5 [facility] Platelet mean volume (Bld) [Entitic vol] 11.0 fL 6.2-12.0 [facility] Platelets (Bld) [#/Vol] 215 10*3/uL 150-450 [facility] RBC Auto (Bld) [#/Vol]Ordere d By: Renard Burgos on 07-10-2023 RBC (Bld) [#/Vol] 4.61 10*6/uL 4.6-6.2 [facility] Absolute lymphocyte countOrd ered By: Renard Burgos on 07-03-2023 Lymphocytes Auto (Unsp spec) [#/Vol] 1.84 10*3/uL 0.83-4.51 [facility] Automated lymphocyte count a s percentage of total leukocytesOrdered By: Renard Burgos on 07-03-2023 Lymphocytes/100 WBC Auto (Unsp spec) 16.9 % 19-41 [facility] Basophil percentageOrdered B y: Renard Burgos on 07-03-2023 Basophil percentage 3.17 ng/mL 0.0-4.0 [facility] Comment on above: This test was perfor med using the TPSA assay method for [employer] chemistry system. Values obtained with differentassay methods cannot be used interchangably.When changing PSA assays in the course of monitoring apatient, additional sequential testing should be carriedout to confirm baseline values. Basophils/100 WBC (Bld) 0.5 % 0-1 [facility] Eosinophils/100 WBC (Bld) 0.4 % 0-5 [facility] Hemoglobin (Bld) [Mass/Vol] 13.2 g/dL 13.0-16.5 [facility] Monocytes/100 WBC (Bld) 7.4 % 0-10 [facility] Neutrophils (Bld) [#/Vol] 8.1 10*3/uL 2.0-7.7 [facility] Neutrophils/100 WBC (Bld) 74.4 % 47-70 [facility] WBC (Bld) [#/Vol] 10.9 10*3/uL 4.4-11.0 [facility] Determination of erythrocyte mean corpuscular volume (MCV)Ordered By: Renard Burgos on 07-03-2023 MCV (RBC) [Entitic vol] 89.8 fL 80-94 [facility] Erythrocyte distribution wid th ratioOrdered By: Renard Burgos on 07-03-2023 Erythrocyte distribution width (RBC) [Ratio] 12.7 % 11.6-14.6 [facility] Erythrocyte distribution wid th standard deviationOrdered By: Renard Burgos on 07-03-2023 Erythrocyte distribution width (RBC) [Entitic vol] 41.9 fL 35.1-43.9 [facility] Hematocrit Auto (Bld) [Volum e fraction]Ordered By: Renard Burgos on 07-03-2023 Hematocrit (Bld) [Volume fraction] 40.3 % 40-54 [facility] Immature granulocytes/100 WB C Auto (Bld)Ordered By: Renard Burgos on 07-03-2023 Immature granulocytes/100 WBC (Bld) 0.400 % 0.0-0.9 [facility] Comment on above: IG% - Immature Granu locytes (promyelocytes, myelocytes and metamyelocytes) > 1% indicates that a LEFT SHIFT is Present. Laboratory - Hematology and Cell countsOrdered By: Renard Burgos on 07-03-2023 MCH (RBC) [Entitic mass] 29.4 pg 27.0-32.0 [facility] MCHC (RBC) [Mass/Vol] 32.8 g/dL 32-36 [facility] Nucleated RBC/100 WBC (Bld) [Ratio] 0 % 0-5 [facility] Platelet mean volume (Bld) [Entitic vol] 11.2 fL 6.2-12.0 [facility] Platelets (Bld) [#/Vol] 191 10*3/uL 150-450 [facility] RBC Auto (Bld) [#/Vol]Ordere d By: Renard Burgos on 07-03-2023 RBC (Bld) [#/Vol] 4.49 10*6/uL 4.6-6.2 [facility] Absolute lymphocyte countOrd ered By: Renard Burgos on 06-26-2023 Lymphocytes Auto (Unsp spec) [#/Vol] 2.23 10*3/uL 0.83-4.51 [facility] Automated lymphocyte count a s percentage of total leukocytesOrdered By: Renard Burgos on 06-26-2023 Lymphocytes/100 WBC Auto (Unsp spec) 27.3 % 19-41 [facility] Basophil percentageOrdered B y: Renard Burgos on 06-26-2023 Basophils/100 WBC (Bld) 0.5 % 0-1 [facility] Eosinophils/100 WBC (Bld) 0.7 % 0-5 [facility] Hemoglobin (Bld) [Mass/Vol] 13.7 g/dL 13.0-16.5 [facility] Monocytes/100 WBC (Bld) 9.5 % 0-10 [facility] Neutrophils (Bld) [#/Vol] 5.1 10*3/uL 2.0-7.7 [facility] Neutrophils/100 WBC (Bld) 61.8 % 47-70 [facility] WBC (Bld) [#/Vol] 8.2 10*3/uL 4.4-11.0 [facility] Determination of erythrocyte mean corpuscular volume (MCV)Ordered By: Renard Burgos on 06-26-2023 MCV (RBC) [Entitic vol] 92.2 fL 80-94 [facility] Erythrocyte distribution wid th ratioOrdered By: Renard Burgos on 06-26-2023 Erythrocyte distribution width (RBC) [Ratio] 12.7 % 11.6-14.6 [facility] Erythrocyte distribution wid th standard deviationOrdered By: Renard Burgos on 06-26-2023 Erythrocyte distribution width (RBC) [Entitic vol] 42.8 fL 35.1-43.9 [facility] Hematocrit Auto (Bld) [Volum e fraction]Ordered By: Renard Brugos on 06-26-2023 Hematocrit (Bld) [Volume fraction] 42.6 % 40-54 [facility] Immature granulocytes/100 WB C Auto (Bld)Ordered By: Renard Burgos on 06-26-2023 Immature granulocytes/100 WBC (Bld) 0.200 % 0.0-0.9 [facility] Comment on above: IG% - Immature Granu locytes (promyelocytes, myelocytes and metamyelocytes) > 1% indicates that a LEFT SHIFT is Present. Laboratory - Hematology and Cell countsOrdered By: Renard Burgos on 06-26-2023 MCH (RBC) [Entitic mass] 29.7 pg 27.0-32.0 [facility] MCHC (RBC) [Mass/Vol] 32.2 g/dL 32-36 [facility] Nucleated RBC/100 WBC (Bld) [Ratio] 0 % 0-5 [facility] Platelet mean volume (Bld) [Entitic vol] 11.0 fL 6.2-12.0 [facility] Platelets (Bld) [#/Vol] 182 10*3/uL 150-450 [facility] RBC Auto (Bld) [#/Vol]Ordere d By: Renard Burgos on 06-26-2023 RBC (Bld) [#/Vol] 4.62 10*6/uL 4.6-6.2 [facility] Absolute lymphocyte countOrd ered By: Renard Burgos on 06-19-2023 Lymphocytes Auto (Unsp spec) [#/Vol] 2.13 10*3/uL 0.83-4.51 [facility] Automated lymphocyte count a s percentage of total leukocytesOrdered By: Renard Burgos on 06-19-2023 Lymphocytes/100 WBC Auto (Unsp spec) 28.8 % 19-41 [facility] Basophil percentageOrdered B y: Renard Burgos on 06-19-2023 Basophils/100 WBC (Bld) 0.5 % 0-1 [facility] Eosinophils/100 WBC (Bld) 0.5 % 0-5 [facility] Hemoglobin (Bld) [Mass/Vol] 13.7 g/dL 13.0-16.5 [facility] Monocytes/100 WBC (Bld) 8.1 % 0-10 [facility] Neutrophils (Bld) [#/Vol] 4.6 10*3/uL 2.0-7.7 [facility] Neutrophils/100 WBC (Bld) 61.6 % 47-70 [facility] WBC (Bld) [#/Vol] 7.4 10*3/uL 4.4-11.0 [facility] Determination of erythrocyte mean corpuscular volume (MCV)Ordered By: Renard Burgos on 06-19-2023 MCV (RBC) [Entitic vol] 91.7 fL 80-94 [facility] Erythrocyte distribution wid th ratioOrdered By: Renard Burgos on 06-19-2023 Erythrocyte distribution width (RBC) [Ratio] 12.7 % 11.6-14.6 [facility] Erythrocyte distribution wid th standard deviationOrdered By: Renard Burgos on 06-19-2023 Erythrocyte distribution width (RBC) [Entitic vol] 42.8 fL 35.1-43.9 [facility] Hematocrit Auto (Bld) [Volum e fraction]Ordered By: Renard Burgos on 06-19-2023 Hematocrit (Bld) [Volume fraction] 43.1 % 40-54 [facility] Immature granulocytes/100 WB C Auto (Bld)Ordered By: Renard Burgos on 06-19-2023 Immature granulocytes/100 WBC (Bld) 0.500 % 0.0-0.9 [facility] Comment on above: IG% - Immature Granu locytes (promyelocytes, myelocytes and metamyelocytes) > 1% indicates that a LEFT SHIFT is Present. Laboratory - Hematology and Cell countsOrdered By: Renard Burgos on 06-19-2023 MCH (RBC) [Entitic mass] 29.1 pg 27.0-32.0 [facility] MCHC (RBC) [Mass/Vol] 31.8 g/dL 32-36 [facility] Nucleated RBC/100 WBC (Bld) [Ratio] 0 % 0-5 [facility] Platelet mean volume (Bld) [Entitic vol] 11.1 fL 6.2-12.0 [facility] Platelets (Bld) [#/Vol] 201 10*3/uL 150-450 [facility] RBC Auto (Bld) [#/Vol]Ordere d By: Renard Burgos on 06-19-2023 RBC (Bld) [#/Vol] 4.70 10*6/uL 4.6-6.2 [facility] Absolute lymphocyte countOrd ered By: Renard Burgos on 06-12-2023 Lymphocytes Auto (Unsp spec) [#/Vol] 2.17 10*3/uL 0.83-4.51 [facility] Automated lymphocyte count a s percentage of total leukocytesOrdered By: Renard Burgos on 06-12-2023 Lymphocytes/100 WBC Auto (Unsp spec) 26.7 % 19-41 [facility] Basophil percentageOrdered B y: Renard Burgos on 06-12-2023 Basophils/100 WBC (Bld) 0.4 % 0-1 [facility] Eosinophils/100 WBC (Bld) 0.5 % 0-5 [facility] Hemoglobin (Bld) [Mass/Vol] 13.5 g/dL 13.0-16.5 [facility] Monocytes/100 WBC (Bld) 9.0 % 0-10 [facility] Neutrophils (Bld) [#/Vol] 5.1 10*3/uL 2.0-7.7 [facility] Neutrophils/100 WBC (Bld) 63.0 % 47-70 [facility] WBC (Bld) [#/Vol] 8.1 10*3/uL 4.4-11.0 [facility] Determination of erythrocyte mean corpuscular volume (MCV)Ordered By: Renard Burgos on 06-12-2023 MCV (RBC) [Entitic vol] 91.3 fL 80-94 [facility] Erythrocyte distribution wid th ratioOrdered By: Renard Burgos on 06-12-2023 Erythrocyte distribution width (RBC) [Ratio] 12.6 % 11.6-14.6 [facility] Erythrocyte distribution wid th standard deviationOrdered By: Renard Burgos on 06-12-2023 Erythrocyte distribution width (RBC) [Entitic vol] 41.5 fL 35.1-43.9 [facility] Hematocrit Auto (Bld) [Volum e fraction]Ordered By: Renard Burgos on 06-12-2023 Hematocrit (Bld) [Volume fraction] 40.8 % 40-54 [facility] Immature granulocytes/100 WB C Auto (Bld)Ordered By: Renard Burgos on 06-12-2023 Immature granulocytes/100 WBC (Bld) 0.400 % 0.0-0.9 [facility] Comment on above: IG% - Immature Granu locytes (promyelocytes, myelocytes and metamyelocytes) > 1% indicates that a LEFT SHIFT is Present. Laboratory - Hematology and Cell countsOrdered By: Rneard Burgos on 06-12-2023 MCH (RBC) [Entitic mass] 30.2 pg 27.0-32.0 [facility] MCHC (RBC) [Mass/Vol] 33.1 g/dL 32-36 [facility] Nucleated RBC/100 WBC (Bld) [Ratio] 0 % 0-5 [facility] Platelet mean volume (Bld) [Entitic vol] 11.0 fL 6.2-12.0 [facility] Platelets (Bld) [#/Vol] 195 10*3/uL 150-450 [facility] RBC Auto (Bld) [#/Vol]Ordere d By: Renard Burgos on 06-12-2023 RBC (Bld) [#/Vol] 4.47 10*6/uL 4.6-6.2 [facility] Absolute lymphocyte countOrd ered By: Renard Burgos on 06-05-2023 Lymphocytes Auto (Unsp spec) [#/Vol] 2.05 10*3/uL 0.83-4.51 [facility] Automated lymphocyte count a s percentage of total leukocytesOrdered By: Renard Burgos on 06-05-2023 Lymphocytes/100 WBC Auto (Unsp spec) 24.1 % 19-41 [facility] Basophil percentageOrdered B y: Renard Burgos on 06-05-2023 Basophils/100 WBC (Bld) 0.5 % 0-1 [facility] Eosinophils/100 WBC (Bld) 0.5 % 0-5 [facility] Hemoglobin (Bld) [Mass/Vol] 13.6 g/dL 13.0-16.5 [facility] Monocytes/100 WBC (Bld) 7.6 % 0-10 [facility] Neutrophils (Bld) [#/Vol] 5.7 10*3/uL 2.0-7.7 [facility] Neutrophils/100 WBC (Bld) 66.9 % 47-70 [facility] WBC (Bld) [#/Vol] 8.5 10*3/uL 4.4-11.0 [facility] Determination of erythrocyte mean corpuscular volume (MCV)Ordered By: Renard Burgos on 06-05-2023 MCV (RBC) [Entitic vol] 89.7 fL 80-94 [facility] Erythrocyte distribution wid th ratioOrdered By: Renard Burgos on 06-05-2023 Erythrocyte distribution width (RBC) [Ratio] 12.6 % 11.6-14.6 [facility] Erythrocyte distribution wid th standard deviationOrdered By: Renard Burgos on 06-05-2023 Erythrocyte distribution width (RBC) [Entitic vol] 41.1 fL 35.1-43.9 [facility] Hematocrit Auto (Bld) [Volum e fraction]Ordered By: Renard Burgos on 06-05-2023 Hematocrit (Bld) [Volume fraction] 41.0 % 40-54 [facility] Immature granulocytes/100 WB C Auto (Bld)Ordered By: Renard Burgos on 06-05-2023 Immature granulocytes/100 WBC (Bld) 0.400 % 0.0-0.9 [facility] Comment on above: IG% - Immature Granu locytes (promyelocytes, myelocytes and metamyelocytes) > 1% indicates that a LEFT SHIFT is Present. Laboratory - Hematology and Cell countsOrdered By: Renard Burgos on 06-05-2023 MCH (RBC) [Entitic mass] 29.8 pg 27.0-32.0 [facility] MCHC (RBC) [Mass/Vol] 33.2 g/dL 32-36 [facility] Nucleated RBC/100 WBC (Bld) [Ratio] 0 % 0-5 [facility] Platelets (Bld) [#/Vol] 193 10*3/uL 150-450 [facility] Platelet mean volume Adam-Ec ker (Bld) [Entitic vol]Ordered By: Renard Burgos on 06-05-2023 Platelet mean volume (Bld) [Entitic vol] 10.8 fL 6.2-12.0 [facility] RBC Auto (Bld) [#/Vol]Ordere d By: Renard Burgos on 06-05-2023 RBC (Bld) [#/Vol] 4.57 10*6/uL 4.6-6.2 [facility] Absolute lymphocyte countOrd ered By: Renard Burgos on 05-29-2023 Lymphocytes Auto (Unsp spec) [#/Vol] 2.32 10*3/uL 0.83-4.51 [facility] Automated lymphocyte count a s percentage of total leukocytesOrdered By: Renard Burgos on 05-29-2023 Lymphocytes/100 WBC Auto (Unsp spec) 26.7 % 19-41 [facility] Basophil percentageOrdered B y: Renard Burgos on 05-29-2023 Basophils/100 WBC (Bld) 0.6 % 0-1 [facility] Eosinophils/100 WBC (Bld) 0.5 % 0-5 [facility] Hemoglobin (Bld) [Mass/Vol] 14.2 g/dL 13.0-16.5 [facility] Monocytes/100 WBC (Bld) 6.8 % 0-10 [facility] Neutrophils (Bld) [#/Vol] 5.7 10*3/uL 2.0-7.7 [facility] Neutrophils/100 WBC (Bld) 65.2 % 47-70 [facility] WBC (Bld) [#/Vol] 8.7 10*3/uL 4.4-11.0 [facility] Determination of erythrocyte mean corpuscular volume (MCV)Ordered By: Renrad Burgos on 05-29-2023 MCV (RBC) [Entitic vol] 94.0 fL 80-94 [facility] Erythrocyte distribution wid th ratioOrdered By: Renard Burgos on 05-29-2023 Erythrocyte distribution width (RBC) [Ratio] 12.6 % 11.6-14.6 [facility] Erythrocyte distribution wid th standard deviationOrdered By: Renard Burgos on 05-29-2023 Erythrocyte distribution width (RBC) [Entitic vol] 43.0 fL 35.1-43.9 [facility] Hematocrit Auto (Bld) [Volum e fraction]Ordered By: Renard Burgos on 05-29-2023 Hematocrit (Bld) [Volume fraction] 45.4 % 40-54 [facility] Immature granulocytes/100 WB C Auto (Bld)Ordered By: Renard Burgos on 05-29-2023 Immature granulocytes/100 WBC (Bld) 0.200 % 0.0-0.9 [facility] Comment on above: IG% - Immature Granu locytes (promyelocytes, myelocytes and metamyelocytes) > 1% indicates that a LEFT SHIFT is Present. Laboratory - Hematology and Cell countsOrdered By: Renard Burgos on 05-29-2023 MCH (RBC) [Entitic mass] 29.4 pg 27.0-32.0 [facility] MCHC (RBC) [Mass/Vol] 31.3 g/dL 32-36 [facility] Nucleated RBC/100 WBC (Bld) [Ratio] 0 % 0-5 [facility] Platelets (Bld) [#/Vol] 116 10*3/uL 150-450 [facility] Platelet mean volume Adam-Ec ker (Bld) [Entitic vol]Ordered By: Renard Burgos on 05-29-2023 Platelet mean volume (Bld) [Entitic vol] 11.1 fL 6.2-12.0 [facility] RBC Auto (Bld) [#/Vol]Ordere d By: Renard Burgos on 05-29-2023 RBC (Bld) [#/Vol] 4.83 10*6/uL 4.6-6.2 [facility] Absolute lymphocyte countOrd ered By: Renard Burgos on 05-22-2023 Lymphocytes Auto (Unsp spec) [#/Vol] 2.40 10*3/uL 0.83-4.51 [facility] Automated lymphocyte count a s percentage of total leukocytesOrdered By: Renard Burgos on 05-22-2023 Lymphocytes/100 WBC Auto (Unsp spec) 25.6 % 19-41 [facility] Basophil percentageOrdered B y: Renard Burgos on 05-22-2023 Basophils/100 WBC (Bld) 0.4 % 0-1 [facility] Eosinophils/100 WBC (Bld) 0.4 % 0-5 [facility] Hemoglobin (Bld) [Mass/Vol] 13.7 g/dL 13.0-16.5 [facility] Monocytes/100 WBC (Bld) 9.1 % 0-10 [facility] Neutrophils (Bld) [#/Vol] 6.0 10*3/uL 2.0-7.7 [facility] Neutrophils/100 WBC (Bld) 63.9 % 47-70 [facility] WBC (Bld) [#/Vol] 9.4 10*3/uL 4.4-11.0 [facility] Determination of erythrocyte mean corpuscular volume (MCV)Ordered By: Renard Burgos on 05-22-2023 MCV (RBC) [Entitic vol] 91.8 fL 80-94 [facility] Erythrocyte distribution wid th ratioOrdered By: Renard Burgos on 05-22-2023 Erythrocyte distribution width (RBC) [Ratio] 12.8 % 11.6-14.6 [facility] Erythrocyte distribution wid th standard deviationOrdered By: Renard Burgos on 05-22-2023 Erythrocyte distribution width (RBC) [Entitic vol] 43.4 fL 35.1-43.9 [facility] Hematocrit Auto (Bld) [Volum e fraction]Ordered By: Renard Burgos on 05-22-2023 Hematocrit (Bld) [Volume fraction] 41.5 % 40-54 [facility] Immature granulocytes/100 WB C Auto (Bld)Ordered By: Renard Burgos on 05-22-2023 Immature granulocytes/100 WBC (Bld) 0.600 % 0.0-0.9 [facility] Comment on above: IG% - Immature Granu locytes (promyelocytes, myelocytes and metamyelocytes) > 1% indicates that a LEFT SHIFT is Present. Laboratory - Hematology and Cell countsOrdered By: Renard Burgos on 05-22-2023 MCH (RBC) [Entitic mass] 30.3 pg 27.0-32.0 [facility] MCHC (RBC) [Mass/Vol] 33.0 g/dL 32-36 [facility] Nucleated RBC/100 WBC (Bld) [Ratio] 0 % 0-5 [facility] Platelets (Bld) [#/Vol] 192 10*3/uL 150-450 [facility] Platelet mean volume Adam-Ec ker (Bld) [Entitic vol]Ordered By: Renard Burgos on 05-22-2023 Platelet mean volume (Bld) [Entitic vol] 11.3 fL 6.2-12.0 [facility] RBC Auto (Bld) [#/Vol]Ordere d By: Renard Burgos on 05-22-2023 RBC (Bld) [#/Vol] 4.52 10*6/uL 4.6-6.2 [facility] Absolute lymphocyte countOrd ered By: Renard Burgos on 05-15-2023 Lymphocytes Auto (Unsp spec) [#/Vol] 2.11 10*3/uL 0.83-4.51 [facility] Basophil percentageOrdered B y: Renard Burgos on 05-15-2023 Basophils/100 WBC (Bld) 0.6 % 0-1 [facility] Eosinophils/100 WBC (Bld) 0.8 % 0-5 [facility] Neutrophils (Bld) [#/Vol] 4.9 10*3/uL 2.0-7.7 [facility] Neutrophils/100 WBC (Bld) 62.4 % 47-70 [facility] WBC (Bld) [#/Vol] 7.9 10*3/uL 4.4-11.0 [facility] Blood erythrocytes count (nu mber/volume)Ordered By: Renard Burgos on 05-15-2023 RBC (Bld) [#/Vol] 4.61 10*6/uL 4.6-6.2 [facility] Blood hemoglobin measurement (mass/volume)Ordered By: Renard Burgos on 05-15-2023 Hemoglobin (Bld) [Mass/Vol] 13.9 g/dL 13.0-16.5 [facility] Blood lymphocytes/100 leukoc ytesOrdered By: Renard Burgos on 05-15-2023 Lymphocytes/100 WBC (Bld) 26.7 % 19-41 [facility] Blood monocytes/100 leukocyt esOrdered By: Renard Burgos on 05-15-2023 Monocytes/100 WBC (Bld) 9.1 % 0-10 [facility] Blood platelet mean volumeOr dered By: Renard Burgos on 05-15-2023 Platelet mean volume (Bld) [Entitic vol] 10.7 fL 6.2-12.0 [facility] Determination of erythrocyte mean corpuscular volume (MCV)Ordered By: Renard Burgos on 05-15-2023 MCV (RBC) [Entitic vol] 90.5 fL 80-94 [facility] Hematocrit Auto (Bld) [Volum e fraction]Ordered By: Renard Burgos on 05-15-2023 Hematocrit (Bld) [Volume fraction] 41.7 % 40-54 [facility] Laboratory - Hematology and Cell countsOrdered By: Renard Burgos on 05-15-2023 Erythrocyte distribution width (RBC) [Entitic vol] 42.4 fL 35.1-43.9 [facility] Erythrocyte distribution width (RBC) [Ratio] 12.9 % 11.6-14.6 [facility] Immature granulocytes/100 WBC (Bld) 0.400 % 0.0-0.9 [facility] Comment on above: IG% - Immature Granu locytes (promyelocytes, myelocytes and metamyelocytes) > 1% indicates that a LEFT SHIFT is Present. MCH (RBC) [Entitic mass] 30.2 pg 27.0-32.0 [facility] Nucleated RBC/100 WBC (Bld) [Ratio] 0 % 0-5 [facility] MCHC Auto (RBC) [Mass/Vol]Or dered By: Renard Burgos on 05-15-2023 MCHC (RBC) [Mass/Vol] 33.3 g/dL 32-36 [facility] Platelets bldOrdered By: [facility] lizy Burgos on 05-15-2023 Platelets (Bld) [#/Vol] 202 10*3/uL 150-450 [facility] Absolute lymphocyte countOrd ered By: Renard Burgos on 05-08-2023 Lymphocytes Auto (Unsp spec) [#/Vol] 2.06 10*3/uL 0.83-4.51 [facility] Basophil percentageOrdered B y: Renard Burgos on 05-08-2023 Basophils/100 WBC (Bld) 0.4 % 0-1 [facility] Eosinophils/100 WBC (Bld) 0.5 % 0-5 [facility] Neutrophils (Bld) [#/Vol] 5.0 10*3/uL 2.0-7.7 [facility] Neutrophils/100 WBC (Bld) 65.7 % 47-70 [facility] WBC (Bld) [#/Vol] 7.5 10*3/uL 4.4-11.0 [facility] Blood erythrocytes count (nu mber/volume)Ordered By: Renard Burgos on 05-08-2023 RBC (Bld) [#/Vol] 4.62 10*6/uL 4.6-6.2 [facility] Blood hemoglobin measurement (mass/volume)Ordered By: Renard Burgos on 05-08-2023 Hemoglobin (Bld) [Mass/Vol] 13.6 g/dL 13.0-16.5 [facility] Blood lymphocytes/100 leukoc ytesOrdered By: Renard Burgos on 05-08-2023 Lymphocytes/100 WBC (Bld) 27.4 % 19-41 [facility] Blood monocytes/100 leukocyt esOrdered By: Renard Burgos on 05-08-2023 Monocytes/100 WBC (Bld) 5.6 % 0-10 [facility] Blood platelet mean volumeOr dered By: Renard Burgos on 05-08-2023 Platelet mean volume (Bld) [Entitic vol] 11.0 fL 6.2-12.0 [facility] Determination of erythrocyte mean corpuscular volume (MCV)Ordered By: Renard Burgos on 05-08-2023 MCV (RBC) [Entitic vol] 91.8 fL 80-94 [facility] Hematocrit Auto (Bld) [Volum e fraction]Ordered By: Renard Burgos on 05-08-2023 Hematocrit (Bld) [Volume fraction] 42.4 % 40-54 [facility] - Hematology and Cell countsOrdered By: Renard Burgos on 05-08-2023 Erythrocyte distribution width (RBC) [Entitic vol] 43.1 fL 35.1-43.9 [facility] Erythrocyte distribution width (RBC) [Ratio] 13.0 % 11.6-14.6 [facility] Immature granulocytes/100 WBC (Bld) 0.400 % 0.0-0.9 [facility] Comment on above: IG% - Immature Granu locytes (promyelocytes, myelocytes and metamyelocytes) > 1% indicates that a LEFT SHIFT is Present. MCH (RBC) [Entitic mass] 29.4 pg 27.0-32.0 [facility] Nucleated RBC/100 WBC (Bld) [Ratio] 0 % 0-5 [facility] MCHC Auto (RBC) [Mass/Vol]Or dered By: Renard Burgos on 05-08-2023 MCHC (RBC) [Mass/Vol] 32.1 g/dL 32-36 [facility] Platelets bldOrdered By: Lyubov Burgos on 05-08-2023 Platelets (Bld) [#/Vol] 226 10*3/uL 150-450 [facility] Absolute lymphocyte countOrd ered By: Renard Burgos on 04-17-2023 Lymphocytes Auto (Unsp spec) [#/Vol] 0.92 10*3/uL 0.83-4.51 [facility] Basophil percentageOrdered B y: Renard Burgos on 04-17-2023 Basophils/100 WBC (Bld) 0.1 % 0-1 [facility] Eosinophils/100 WBC (Bld) 0.0 % 0-5 [facility] Neutrophils (Bld) [#/Vol] 6.0 10*3/uL 2.0-7.7 [facility] Neutrophils/100 WBC (Bld) 81.4 % 47-70 [facility] WBC (Bld) [#/Vol] 7.4 10*3/uL 4.4-11.0 [facility] Blood erythrocytes count (nu mber/volume)Ordered By: Renard Burgos on 04-17-2023 RBC (Bld) [#/Vol] 4.59 10*6/uL 4.6-6.2 [facility] Blood hemoglobin measurement (mass/volume)Ordered By: Renard Burgos on 04-17-2023 Hemoglobin (Bld) [Mass/Vol] 13.7 g/dL 13.0-16.5 [facility] Blood lymphocytes/100 leukoc ytesOrdered By: Renard Burgos on 04-17-2023 Lymphocytes/100 WBC (Bld) 12.5 % 19-41 [facility] Blood monocytes/100 leukocyt esOrdered By: Renard Burgos on 04-17-2023 Monocytes/100 WBC (Bld) 5.6 % 0-10 [facility] Blood platelet mean volumeOr dered By: Renard Burgos on 04-17-2023 Platelet mean volume (Bld) [Entitic vol] 10.9 fL 6.2-12.0 [facility] Determination of erythrocyte mean corpuscular volume (MCV)Ordered By: Renard Burgos on 04-17-2023 MCV (RBC) [Entitic vol] 90.8 fL 80-94 [facility] Hematocrit Auto (Bld) [Volum e fraction]Ordered By: Renard Burgos on 04-17-2023 Hematocrit (Bld) [Volume fraction] 41.7 % 40-54 [facility] - Hematology and Cell countsOrdered By: Renard Burgos on 04-17-2023 Erythrocyte distribution width (RBC) [Entitic vol] 42.3 fL 35.1-43.9 [facility] Erythrocyte distribution width (RBC) [Ratio] 12.8 % 11.6-14.6 [facility] Immature granulocytes/100 WBC (Bld) 0.400 % 0.0-0.9 [facility] Comment on above: IG% - Immature Granu locytes (promyelocytes, myelocytes and metamyelocytes) > 1% indicates that a LEFT SHIFT is Present. MCH (RBC) [Entitic mass] 29.8 pg 27.0-32.0 [facility] Nucleated RBC/100 WBC (Bld) [Ratio] 0 % 0-5 [facility] MCHC Auto (RBC) [Mass/Vol]Or dered By: Renard Burgos on 04-17-2023 MCHC (RBC) [Mass/Vol] 32.9 g/dL 32-36 [facility] [facility] Plate[facility] bldOrdered By: Lyubov Burgos on 04-17-2023 Platelets (Bld) [#/Vol] 194 10*3/uL 150-450 [facility] Basophil percentageOrdered B y: Renard Burgos on 04-14-2023 Bilirubin [Mass/Vol] 0.30 mg/dL 0.20-1.00 [facility] Comment on above: For patients on eltr ombopag therapy, use of Dimension Harmony TBIL is not recommended. Protein [Mass/Vol] 6.2 g/dL 6.4-8.2 [facility] Direct bilirubinOrdered By: Renard Burgos on 04-14-2023 Bilirubin.direct [Mass/Vol] 0.11 mg/dL 0.00-0.30 [facility] - Chemistry and C hemistry - challengeOrdered By: Renard Burgos on 04-14-2023 ALP [Catalytic activity/Vol] 139 U/L 45-117 [facility] ALT [Catalytic activity/Vol] 23 U/L 16-61 [facility] Globulin (S) [Mass/Vol] 3.2 g/dL 2.2-4.2 [facility] Serum or plasma albumin gordy urement (mass/volume)Ordered By: Renard Burgos on 04-14-2023 Albumin [Mass/Vol] 3.0 g/dL 3.2-5.0 [facility] Thin prep Papanicolaou smear with manual screeningOrdered By: Renard Burgos on 04-14-2023 Thin prep Papanicolaou smear with manual screening 14 U/L 15-37 [facility] Absolute lymphocyte countOrd ered By: Renard Burgos on 04-10-2023 Lymphocytes Auto (Unsp spec) [#/Vol] 2.54 10*3/uL 0.83-4.51 [facility] Basophil percentageOrdered B y: Renard Burgos on 04-10-2023 Basophils/100 WBC (Bld) 0.5 % 0-1 [facility] Eosinophils/100 WBC (Bld) 0.5 % 0-5 [facility] Neutrophils (Bld) [#/Vol] 5.1 10*3/uL 2.0-7.7 [facility] Neutrophils/100 WBC (Bld) 59.0 % 47-70 [facility] WBC (Bld) [#/Vol] 8.7 10*3/uL 4.4-11.0 [facility] Blood erythrocytes count (nu mber/volume)Ordered By: Renard Burgos on 04-10-2023 RBC (Bld) [#/Vol] 4.84 10*6/uL 4.6-6.2 [facility] Blood hemoglobin measurement (mass/volume)Ordered By: Renard Burgos on 04-10-2023 Hemoglobin (Bld) [Mass/Vol] 14.2 g/dL 13.0-16.5 [facility] Blood lymphocytes/100 leukoc ytesOrdered By: Renard Burgos on 04-10-2023 Lymphocytes/100 WBC (Bld) 29.4 % 19-41 [facility] Blood monocytes/100 leukocyt esOrdered By: Renard Burgos on 04-10-2023 Monocytes/100 WBC (Bld) 10.3 % 0-10 [facility] Blood platelet mean volumeOr dered By: Renard Burgos on 04-10-2023 Platelet mean volume (Bld) [Entitic vol] 11.1 fL 6.2-12.0 [facility] Determination of erythrocyte mean corpuscular volume (MCV)Ordered By: Renard Burgos on 04-10-2023 MCV (RBC) [Entitic vol] 91.5 fL 80-94 [facility] Hematocrit Auto (Bld) [Volum e fraction]Ordered By: Renard Burgos on 04-10-2023 Hematocrit (Bld) [Volume fraction] 44.3 % 40-54 [facility] - Hematology and Cell countsOrdered By: Renard Burgos on 04-10-2023 Erythrocyte distribution width (RBC) [Entitic vol] 41.9 fL 35.1-43.9 [facility] Erythrocyte distribution width (RBC) [Ratio] 12.6 % 11.6-14.6 [facility] Immature granulocytes/100 WBC (Bld) 0.300 % 0.0-0.9 [facility] Comment on above: IG% - Immature Granu locytes (promyelocytes, myelocytes and metamyelocytes) > 1% indicates that a LEFT SHIFT is Present. MCH (RBC) [Entitic mass] 29.3 pg 27.0-32.0 [facility] Nucleated RBC/100 WBC (Bld) [Ratio] 0 % 0-5 [facility] MCHC Auto (RBC) [Mass/Vol]Or dered By: Renard Burgos on 04-10-2023 MCHC (RBC) [Mass/Vol] 32.1 g/dL 32-36 [facility] Platelets bldOrdered By: Lyubov Burgos on 04-10-2023 Platelets (Bld) [#/Vol] 216 10*3/uL 150-450 [facility] Absolute lymphocyte countOrd ered By: Renard Burgos on 04-03-2023 Lymphocytes Auto (Unsp spec) [#/Vol] 1.91 10*3/uL 0.83-4.51 [facility] Basophil percentageOrdered B y: Renard Burgos on 04-03-2023 Basophils/100 WBC (Bld) 0.5 % 0-1 [facility] Eosinophils/100 WBC (Bld) 0.5 % 0-5 [facility] Neutrophils (Bld) [#/Vol] 5.0 10*3/uL 2.0-7.7 [facility] Neutrophils/100 WBC (Bld) 66.5 % 47-70 [facility] WBC (Bld) [#/Vol] 7.6 10*3/uL 4.4-11.0 [facility] Blood erythrocytes count (nu mber/volume)Ordered By: Renard Burgos on 04-03-2023 RBC (Bld) [#/Vol] 4.62 10*6/uL 4.6-6.2 [facility] Blood hemoglobin measurement (mass/volume)Ordered By: Renard Burgos on 04-03-2023 Hemoglobin (Bld) [Mass/Vol] 13.7 g/dL 13.0-16.5 [facility] Blood lymphocytes/100 leukoc ytesOrdered By: Renard Burgos on 04-03-2023 Lymphocytes/100 WBC (Bld) 25.2 % 19-41 [facility] Blood monocytes/100 leukocyt esOrdered By: Renard Burgos on 04-03-2023 Monocytes/100 WBC (Bld) 6.9 % 0-10 [facility] Blood platelet mean volumeOr dered By: Renard Burgos on 04-03-2023 Platelet mean volume (Bld) [Entitic vol] 10.8 fL 6.2-12.0 [facility] Determination of erythrocyte mean corpuscular volume (MCV)Ordered By: Renard Burgos on 04-03-2023 MCV (RBC) [Entitic vol] 91.6 fL 80-94 [facility] Hematocrit Auto (Bld) [Volum e fraction]Ordered By: Renard Burgos on 04-03-2023 Hematocrit (Bld) [Volume fraction] 42.3 % 40-54 [facility] - Hematology and Cell countsOrdered By: Renard Burgos on 04-03-2023 Erythrocyte distribution width (RBC) [Entitic vol] 42.6 fL 35.1-43.9 [facility] Erythrocyte distribution width (RBC) [Ratio] 12.8 % 11.6-14.6 [facility] Immature granulocytes/100 WBC (Bld) 0.400 % 0.0-0.9 [facility] Comment on above: IG% - Immature Granu locytes (promyelocytes, myelocytes and metamyelocytes) > 1% indicates that a LEFT SHIFT is Present. MCH (RBC) [Entitic mass] 29.7 pg 27.0-32.0 [facility] Nucleated RBC/100 WBC (Bld) [Ratio] 0 % 0-5 [facility] MCHC Auto (RBC) [Mass/Vol]Or dered By: Renard Burgos on 04-03-2023 MCHC (RBC) [Mass/Vol] 32.4 g/dL 32-36 [facility] Platelets bldOrdered By: Lyubov Burgos on 04-03-2023 Platelets (Bld) [#/Vol] 216 10*3/uL 150-450 [facility] Absolute lymphocyte countOrd ered By: Renard Burgos on 03-27-2023 Lymphocytes Auto (Unsp spec) [#/Vol] 2.06 10*3/uL 0.83-4.51 [facility] Basophil percentageOrdered B y: Renard Burgos on 03-27-2023 Basophils/100 WBC (Bld) 0.4 % 0-1 [facility] Eosinophils/100 WBC (Bld) 0.2 % 0-5 [facility] Neutrophils (Bld) [#/Vol] 6.3 10*3/uL 2.0-7.7 [facility] Neutrophils/100 WBC (Bld) 68.8 % 47-70 [facility] WBC (Bld) [#/Vol] 9.1 10*3/uL 4.4-11.0 [facility] Blood erythrocytes count (nu mber/volume)Ordered By: Renard Burgos on 03-27-2023 RBC (Bld) [#/Vol] 4.51 10*6/uL 4.6-6.2 [facility] Blood hemoglobin measurement (mass/volume)Ordered By: Renard Burgos on 03-27-2023 Hemoglobin (Bld) [Mass/Vol] 13.2 g/dL 13.0-16.5 [facility] Blood lymphocytes/100 leukoc ytesOrdered By: Renard Burgos on 03-27-2023 Lymphocytes/100 WBC (Bld) 22.6 % 19-41 [facility] Blood monocytes/100 leukocyt esOrdered By: Renard Burgos on 03-27-2023 Monocytes/100 WBC (Bld) 7.3 % 0-10 [facility] Blood platelet mean volumeOr dered By: Renard Burgos on 03-27-2023 Platelet mean volume (Bld) [Entitic vol] 10.8 fL 6.2-12.0 [facility] Determination of erythrocyte mean corpuscular volume (MCV)Ordered By: Renard Burgos on 03-27-2023 MCV (RBC) [Entitic vol] 91.6 fL 80-94 [facility] Hematocrit Auto (Bld) [Volum e fraction]Ordered By: Renard Burgos on 03-27-2023 Hematocrit (Bld) [Volume fraction] 41.3 % 40-54 [facility] - Hematology and Cell countsOrdered By: Renard Burgos on 03-27-2023 Erythrocyte distribution width (RBC) [Entitic vol] 42.9 fL 35.1-43.9 [facility] Erythrocyte distribution width (RBC) [Ratio] 12.9 % 11.6-14.6 [facility] Immature granulocytes/100 WBC (Bld) 0.700 % 0.0-0.9 [facility] Comment on above: IG% - Immature Granu locytes (promyelocytes, myelocytes and metamyelocytes) > 1% indicates that a LEFT SHIFT is Present. MCH (RBC) [Entitic mass] 29.3 pg 27.0-32.0 [facility] Nucleated RBC/100 WBC (Bld) [Ratio] 0 % 0-5 [facility] MCHC Auto (RBC) [Mass/Vol]Or dered By: Renard Burgos on 03-27-2023 MCHC (RBC) [Mass/Vol] 32.0 g/dL 32-36 [facility] Platelets bldOrdered By: Lyubov Burgos on 03-27-2023 Platelets (Bld) [#/Vol] 205 10*3/uL 150-450 [facility] Absolute lymphocyte countOrd ered By: Renard Burgos on 03-20-2023 Lymphocytes Auto (Unsp spec) [#/Vol] 1.89 10*3/uL 0.83-4.51 [facility] Basophil percentageOrdered B y: Renard Burgos on 03-20-2023 Basophils/100 WBC (Bld) 0.5 % 0-1 [facility] Chloride [Moles/Vol] 107 mmol/L 98-[address] [facility] Eosinophils/100 WBC (Bld) 0.4 % 0-5 [facility] Glucose [Mass/Vol] 124 mg/dL 74-106 [facility] Comment on above: Fasting Glucose resu lt from 100 to 125 mg/dL suggests IMPAIRED HOMEOSTASIS per A.D.A. criteria. Neutrophils (Bld) [#/Vol] 4.8 10*3/uL 2.0-7.7 [facility] Neutrophils/100 WBC (Bld) 64.9 % 47-70 [facility] Potassium [Moles/Vol] 3.6 mmol/L 3.5-5.1 [facility] Sodium [Moles/Vol] 142 mmol/L 136-145 [facility] WBC (Bld) [#/Vol] 7.4 10*3/uL 4.4-11.0 [facility] Blood erythrocytes count (nu mber/volume)Ordered By: Renard Burgos on 03-20-2023 RBC (Bld) [#/Vol] 4.63 10*6/uL 4.6-6.2 [facility] Blood hemoglobin measurement (mass/volume)Ordered By: Renard Burgos on 03-20-2023 Hemoglobin (Bld) [Mass/Vol] 13.7 g/dL 13.0-16.5 [facility] Blood lymphocytes/100 leukoc ytesOrdered By: Renard Burgos on 03-20-2023 Lymphocytes/100 WBC (Bld) 25.7 % 19-41 [facility] Blood monocytes/100 leukocyt esOrdered By: Renard Burgos on 03-20-2023 Monocytes/100 WBC (Bld) 8.2 % 0-10 [facility] Blood platelet mean volumeOr dered By: Renard Burgos on 03-20-2023 Platelet mean volume (Bld) [Entitic vol] 10.7 fL 6.2-12.0 [facility] Determination of erythrocyte mean corpuscular volume (MCV)Ordered By: Renard Burgos on 03-20-2023 MCV (RBC) [Entitic vol] 90.9 fL 80-94 [facility] Hematocrit Auto (Bld) [Volum e fraction]Ordered By: Renard Burgos on 03-20-2023 Hematocrit (Bld) [Volume fraction] 42.1 % 40-54 [facility] - Chemistry and C hemistry - challengeOrdered By: Renard Burgos on 03-20-2023 CO2 [Moles/Vol] 29.0 mmol/L 21.0-32.0 [facility] Urea nitrogen/Creatinine [Mass ratio] 30.7 mg/mg 10-20 [facility] - Hematology and Cell countsOrdered By: Renard Burgos on 03-20-2023 Erythrocyte distribution width (RBC) [Entitic vol] 43.0 fL 35.1-43.9 [facility] Erythrocyte distribution width (RBC) [Ratio] 12.9 % 11.6-14.6 [facility] Immature granulocytes/100 WBC (Bld) 0.300 % 0.0-0.9 [facility] Comment on above: IG% - Immature Granu locytes (promyelocytes, myelocytes and metamyelocytes) > 1% indicates that a LEFT SHIFT is Present. MCH (RBC) [Entitic mass] 29.6 pg 27.0-32.0 [facility] Nucleated RBC/100 WBC (Bld) [Ratio] 0 % 0-5 [facility] MCHC Auto (RBC) [Mass/Vol]Or dered By: Renard Burgos on 03-20-2023 MCHC (RBC) [Mass/Vol] 32.5 g/dL 32-36 [facility] No Panel InformationOrdered By: Renard Burgos on 03-20-2023 Estimated GFR (MDRD) Amer 178 mL/min >60 [facility] Comment on above: GFR Calc Estimated GFR (MDRD) Non-Af Amer 147 mL/min >60 [facility] Comment on above: Non- GFR Calc Platelets bldOrdered By: Lyubov Burgos on 03-20-2023 Platelets (Bld) [#/Vol] 208 10*3/uL 150-450 [facility] Serum or plasma calcium gordy urement (mass/volume)Ordered By: Renard Burgos on 03-20-2023 Calcium [Mass/Vol] 8.1 mg/dL 8.5-10.1 [facility] Serum or plasma creatinine m easurement (mass/volume)Ordered By: Renard Burgos on 03-20-2023 Creatinine [Mass/Vol] 0.59 mg/dL 0.70-1.30 [facility] Comment on above: The validity of the calculated GFR & GFRAA in patients over 70 years has not been determined. Clinical correlation is essential. Serum or plasma urea nitroge n measurement (mass/volume)Ordered By: Renard Burgos on 03-20-2023 Urea nitrogen [Mass/Vol] 18 mg/dL 7-18 [facility] Thin prep Papanicolaou smear with manual screeningOrdered By: Renard Burgos on 03-20-2023 Thin prep Papanicolaou smear with manual screening 6 5-15 [facility] Erythrocyte sedimentation ra teOrdered By: Renard Burgos on 03-16-2023 ESR (Bld) [Velocity] 3 mm/h 0-20 [facility] Absolute lymphocyte countOrd ered By: Renard Burgos on 03-13-2023 Lymphocytes Auto (Unsp spec) [#/Vol] 2.36 10*3/uL 0.83-4.51 [facility] Basophil percentageOrdered B y: Renard Burgos on 03-13-2023 Basophils/100 WBC (Bld) 0.5 % 0-1 [facility] Eosinophils/100 WBC (Bld) 0.5 % 0-5 [facility] Neutrophils (Bld) [#/Vol] 5.2 10*3/uL 2.0-7.7 [facility] Neutrophils/100 WBC (Bld) 61.3 % 47-70 [facility] WBC (Bld) [#/Vol] 8.5 10*3/uL 4.4-11.0 [facility] Blood erythrocytes count (nu mber/volume)Ordered By: Renard Burgos on 03-13-2023 RBC (Bld) [#/Vol] 4.55 10*6/uL 4.6-6.2 [facility] Blood hemoglobin measurement (mass/volume)Ordered By: Renard Burgos on 03-13-2023 Hemoglobin (Bld) [Mass/Vol] 13.4 g/dL 13.0-16.5 [facility] Blood lymphocytes/100 leukoc ytesOrdered By: Renard Burgos on 03-13-2023 Lymphocytes/100 WBC (Bld) 27.7 % 19-41 [facility] Blood monocytes/100 leukocyt esOrdered By: Renard Burgos on 03-13-2023 Monocytes/100 WBC (Bld) 9.5 % 0-10 [facility] Blood platelet mean volumeOr dered By: Renard Burgos on 03-13-2023 Platelet mean volume (Bld) [Entitic vol] 10.6 fL 6.2-12.0 [facility] Determination of erythrocyte mean corpuscular volume (MCV)Ordered By: Renard Burgos on 03-13-2023 MCV (RBC) [Entitic vol] 93.4 fL 80-94 [facility] Hematocrit Auto (Bld) [Volum e fraction]Ordered By: Renard Burgos on 03-13-2023 Hematocrit (Bld) [Volume fraction] 42.5 % 40-54 [facility] - Hematology and Cell countsOrdered By: Renard Burgos on 03-13-2023 Erythrocyte distribution width (RBC) [Entitic vol] 44.1 fL 35.1-43.9 [facility] Erythrocyte distribution width (RBC) [Ratio] 13.0 % 11.6-14.6 [facility] Immature granulocytes/100 WBC (Bld) 0.500 % 0.0-0.9 [facility] Comment on above: IG% - Immature Granu locytes (promyelocytes, myelocytes and metamyelocytes) > 1% indicates that a LEFT SHIFT is Present. MCH (RBC) [Entitic mass] 29.5 pg 27.0-32.0 [facility] Nucleated RBC/100 WBC (Bld) [Ratio] 0 % 0-5 [facility] MCHC Auto (RBC) [Mass/Vol]Or dered By: Renard Burgos on 03-13-2023 MCHC (RBC) [Mass/Vol] 31.5 g/dL 32-36 [facility] Platelets bldOrdered By: Lyubov Burgos on 03-13-2023 Platelets (Bld) [#/Vol] 200 10*3/uL 150-450 [facility] Absolute lymphocyte countOrd ered By: Renard Burgos on 03-06-2023 Lymphocytes Auto (Unsp spec) [#/Vol] 1.80 10*3/uL 0.83-4.51 [facility] Basophil percentageOrdered B y: Renard Burgos on 03-06-2023 Basophils/100 WBC (Bld) 0.5 % 0-1 [facility] Bilirubin [Mass/Vol] 0.40 mg/dL 0.20-1.00 [facility] Comment on above: For patients on eltr ombopag therapy, use of Dimension Harmony TBIL is not recommended. Chloride [Moles/Vol] 107 mmol/L 98-107 [facility] Cholesterol [Mass/Vol] 118 mg/dL <200 [facility] Comment on above: <200 mg/dL Desirable 200-240 mg/dL Borderline >240 mg/dL High Risk Eosinophils/100 WBC (Bld) 0.5 % 0-5 [facility] Glucose [Mass/Vol] 107 mg/dL 74-106 [facility] Comment on above: Fasting Glucose resu lt from 100 to 125 mg/dL suggests IMPAIRED HOMEOSTASIS per A.D.A. criteria. Neutrophils (Bld) [#/Vol] 5.5 10*3/uL 2.0-7.7 [facility] Neutrophils/100 WBC (Bld) 68.0 % 47-70 [facility] Potassium [Moles/Vol] 3.8 mmol/L 3.5-5.1 [facility] Protein [Mass/Vol] 6.3 g/dL 6.4-8.2 [facility] Sodium [Moles/Vol] 141 mmol/L 136-145 [facility] Triglyceride [Mass/Vol] 185 mg/dL <199 [facility] Comment on above: The drugs N-Acetylcy steine and Metamizole may falsely depress this assay.Serum Triglycerides Reference Interval Normal <150 mg/dL Borderline high 150 - 199 mg/dL High 200 - 499 mg/dL Very High > or = 500 mg/dL WBC (Bld) [#/Vol] 8.1 10*3/uL 4.4-11.0 [facility] Blood erythrocytes count (nu mber/volume)Ordered By: Renard Burgos on 03-06-2023 RBC (Bld) [#/Vol] 4.69 10*6/uL 4.6-6.2 [facility] Blood hemoglobin measurement (mass/volume)Ordered By: Renard Burgos on 03-06-2023 Hemoglobin (Bld) [Mass/Vol] 14.0 g/dL 13.0-16.5 [facility] Blood lymphocytes/100 leukoc ytesOrdered By: Renard Burgos on 03-06-2023 Lymphocytes/100 WBC (Bld) 22.3 % 19-41 [facility] Blood monocytes/100 leukocyt esOrdered By: Renard Burgos on 03-06-2023 Monocytes/100 WBC (Bld) 8.2 % 0-10 [facility] Blood platelet mean volumeOr dered By: Renard Burgos on 03-06-2023 Platelet mean volume (Bld) [Entitic vol] 10.9 fL 6.2-12.0 [facility] Determination of erythrocyte mean corpuscular volume (MCV)Ordered By: Renard Burgos on 03-06-2023 MCV (RBC) [Entitic vol] 91.9 fL 80-94 [facility] Hematocrit Auto (Bld) [Volum e fraction]Ordered By: Renard Burgos on 03-06-2023 Hematocrit (Bld) [Volume fraction] 43.1 % 40-54 [facility] - Chemistry and C hemistry - challengeOrdered By: Renard Burgos on 03-06-2023 ALP [Catalytic activity/Vol] 120 U/L 45-117 [facility] ALT [Catalytic activity/Vol] 20 U/L 16-61 [facility] CO2 [Moles/Vol] 30.0 mmol/L 21.0-32.0 [facility] Globulin (S) [Mass/Vol] 3.3 g/dL 2.2-4.2 [facility] Urea nitrogen/Creatinine [Mass ratio] 27.1 mg/mg 10-20 [facility] - Hematology and Cell countsOrdered By: Renard Burgos on 03-06-2023 Erythrocyte distribution width (RBC) [Entitic vol] 42.5 fL 35.1-43.9 [facility] Erythrocyte distribution width (RBC) [Ratio] 12.9 % 11.6-14.6 [facility] Immature granulocytes/100 WBC (Bld) 0.500 % 0.0-0.9 [facility] Comment on above: IG% - Immature Granu locytes (promyelocytes, myelocytes and metamyelocytes) > 1% indicates that a LEFT SHIFT is Present. MCH (RBC) [Entitic mass] 29.9 pg 27.0-32.0 [facility] Nucleated RBC/100 WBC (Bld) [Ratio] 0 % 0-5 [facility] MCHC Auto (RBC) [Mass/Vol]Or dered By: Renard Burgos on 03-06-2023 MCHC (RBC) [Mass/Vol] 32.5 g/dL 32-36 [facility] No Panel InformationOrdered By: Renard Burgos on 03-06-2023 Estimated GFR (MDRD) Amer 165 mL/min >60 [facility] Comment on above: GFR Calc Estimated GFR (MDRD) Non-Af Amer 136 mL/min >60 [facility] Comment on above: Non- GFR Calc Platelets bldOrdered By: Lyubov Burgos on 03-06-2023 Platelets (Bld) [#/Vol] 232 10*3/uL 150-450 [facility] Serum or plasma albumin gordy urement (mass/volume)Ordered By: Renard Burgos on 03-06-2023 Albumin [Mass/Vol] 3.0 g/dL 3.2-5.0 [facility] Serum or plasma albumin/glob ulin mass ratioOrdered By: Renard Burgos on 03-06-2023 Albumin/Globulin [Mass ratio] 0.9 {ratio} 0.9-2.4 [facility] Serum or plasma calcium gordy urement (mass/volume)Ordered By: Renard Burgos on 03-06-2023 Calcium [Mass/Vol] 8.2 mg/dL 8.5-10.1 [facility] Serum or plasma cholesterol in HDL measurement (mass/volume)Ordered By: Renard Burgos on 03-06-2023 Cholesterol in HDL [Mass/Vol] 25 mg/dL >40 [facility] Comment on above: The drugs N-Acetylcy steine and Metamizole may falsely depress this assay. Reference Range HDL <40 mg/dL Low HDL Cholesterol HDL >or= 60 mg/dL High HDL Cholesterol Serum or plasma cholesterol in VLDL measurement (mass/volume)Ordered By: Renard Burgos on 03-06-2023 Cholesterol in VLDL [Mass/Vol] 37 mg/dL 5-40 [facility] Serum or plasma creatinine m easurement (mass/volume)Ordered By: Renard Burgos on 03-06-2023 Creatinine [Mass/Vol] 0.63 mg/dL 0.70-1.30 [facility] Comment on above: The validity of the calculated GFR & GFRAA in patients over 70 years has not been determined. Clinical correlation is essential. Serum or plasma low density lipoprotein (LDL) cholesterol measurement (mass/volume)Ordered By: Renard Burgos on 03-06-2023 Cholesterol in LDL [Mass/Vol] 56 mg/dL 0-130 [facility] Serum or plasma urea nitroge n measurement (mass/volume)Ordered By: Renard Burgos on 03-06-2023 Urea nitrogen [Mass/Vol] 17 mg/dL 7-18 [facility] Thin prep Papanicolaou smear with manual screeningOrdered By: Renard Burgos on 03-06-2023 Thin prep Papanicolaou smear with manual screening 10 U/L 15-37 [facility] Thin prep Papanicolaou smear with manual screening 4 5-15 [facility] Absolute lymphocyte countOrd ered By: Renard Burgos on 02-27-2023 Lymphocytes Auto (Unsp spec) [#/Vol] 2.13 10*3/uL 0.83-4.51 [facility] Basophil percentageOrdered B y: Renard Burgos on 02-27-2023 Basophils/100 WBC (Bld) 0.6 % 0-1 [facility] Eosinophils/100 WBC (Bld) 0.6 % 0-5 [facility] Neutrophils (Bld) [#/Vol] 5.1 10*3/uL 2.0-7.7 [facility] Neutrophils/100 WBC (Bld) 63.3 % 47-70 [facility] WBC (Bld) [#/Vol] 8.1 10*3/uL 4.4-11.0 [facility] Blood erythrocytes count (nu mber/volume)Ordered By: eRnard Burgos on 02-27-2023 RBC (Bld) [#/Vol] 4.54 10*6/uL 4.6-6.2 [facility] Blood hemoglobin measurement (mass/volume)Ordered By: Renard Burgos on 02-27-2023 Hemoglobin (Bld) [Mass/Vol] 13.7 g/dL 13.0-16.5 [facility] Blood lymphocytes/100 leukoc ytesOrdered By: Renard Burgos on 02-27-2023 Lymphocytes/100 WBC (Bld) 26.4 % 19-41 [facility] Blood monocytes/100 leukocyt esOrdered By: Renard Burgos on 02-27-2023 Monocytes/100 WBC (Bld) 8.7 % 0-10 [facility] Blood platelet mean volumeOr dered By: Renard Burgos on 02-27-2023 Platelet mean volume (Bld) [Entitic vol] 10.8 fL 6.2-12.0 [facility] Determination of erythrocyte mean corpuscular volume (MCV)Ordered By: Renard Burgos on 02-27-2023 MCV (RBC) [Entitic vol] 89.9 fL 80-94 [facility] Hematocrit Auto (Bld) [Volum e fraction]Ordered By: Renard Burgos on 02-27-2023 Hematocrit (Bld) [Volume fraction] 40.8 % 40-54 [facility] - Hematology and Cell countsOrdered By: Renard Burgos on 02-27-2023 Erythrocyte distribution width (RBC) [Entitic vol] 41.0 fL 35.1-43.9 [facility] Erythrocyte distribution width (RBC) [Ratio] 12.5 % 11.6-14.6 [facility] Immature granulocytes/100 WBC (Bld) 0.400 % 0.0-0.9 [facility] Comment on above: IG% - Immature Granu locytes (promyelocytes, myelocytes and metamyelocytes) > 1% indicates that a LEFT SHIFT is Present. MCH (RBC) [Entitic mass] 30.2 pg 27.0-32.0 [facility] Nucleated RBC/100 WBC (Bld) [Ratio] 0 % 0-5 [facility] MCHC Auto (RBC) [Mass/Vol]Or dered By: Renard Burgos on 02-27-2023 MCHC (RBC) [Mass/Vol] 33.6 g/dL 32-36 [facility] Platelets bldOrdered By: Lyubov lizy Loretta on 02-27-2023 Platelets (Bld) [#/Vol] 182 10*3/uL 150-450 [facility] Absolute lymphocyte countOrd ered By: Renard Burgos on 02-20-2023 Lymphocytes Auto (Unsp spec) [#/Vol] 2.23 10*3/uL 0.83-4.51 [facility] Basophil percentageOrdered B y: eRnard Burgos on 02-20-2023 Basophils/100 WBC (Bld) 0.3 % 0-1 [facility] Eosinophils/100 WBC (Bld) 0.7 % 0-5 [facility] Neutrophils (Bld) [#/Vol] 5.9 10*3/uL 2.0-7.7 [facility] Neutrophils/100 WBC (Bld) 65.7 % 47-70 [facility] WBC (Bld) [#/Vol] 9.0 10*3/uL 4.4-11.0 [facility] Blood erythrocytes count (nu mber/volume)Ordered By: Renard Burgos on 02-20-2023 RBC (Bld) [#/Vol] 4.46 10*6/uL 4.6-6.2 [facility] Blood hemoglobin measurement (mass/volume)Ordered By: Renard Burgos on 02-20-2023 Hemoglobin (Bld) [Mass/Vol] 13.3 g/dL 13.0-16.5 [facility] Blood lymphocytes/100 leukoc ytesOrdered By: Renard Burgos on 02-20-2023 Lymphocytes/100 WBC (Bld) 24.7 % 19-41 [facility] Blood monocytes/100 leukocyt esOrdered By: Renard Burgos on 02-20-2023 Monocytes/100 WBC (Bld) 8.0 % 0-10 [facility] Blood platelet mean volumeOr dered By: Renard Burgos on 02-20-2023 Platelet mean volume (Bld) [Entitic vol] 10.7 fL 6.2-12.0 [facility] Determination of erythrocyte mean corpuscular volume (MCV)Ordered By: Renard Burgos on 02-20-2023 MCV (RBC) [Entitic vol] 90.6 fL 80-94 [facility] Hematocrit Auto (Bld) [Volum e fraction]Ordered By: Renard Burgos on 02-20-2023 Hematocrit (Bld) [Volume fraction] 40.4 % 40-54 [facility] - Hematology and Cell countsOrdered By: Renard Burgos on 02-20-2023 Erythrocyte distribution width (RBC) [Entitic vol] 41.9 fL 35.1-43.9 [facility] Erythrocyte distribution width (RBC) [Ratio] 12.8 % 11.6-14.6 [facility] Immature granulocytes/100 WBC (Bld) 0.600 % 0.0-0.9 [facility] Comment on above: IG% - Immature Granu locytes (promyelocytes, myelocytes and metamyelocytes) > 1% indicates that a LEFT SHIFT is Present. MCH (RBC) [Entitic mass] 29.8 pg 27.0-32.0 [facility] Nucleated RBC/100 WBC (Bld) [Ratio] 0 % 0-5 [facility] MCHC Auto (RBC) [Mass/Vol]Or dered By: Renard Burgos on 02-20-2023 MCHC (RBC) [Mass/Vol] 32.9 g/dL 32-36 [facility] Platelets bldOrdered By: Lyubov Burgos on 02-20-2023 Platelets (Bld) [#/Vol] 220 10*3/uL 150-450 [facility] Absolute lymphocyte countOrd ered By: Renard Burgos on 02-13-2023 Lymphocytes Auto (Unsp spec) [#/Vol] 2.01 10*3/uL 0.83-4.51 [facility] Basophil percentageOrdered B y: Renard Burgos on 02-13-2023 Basophils/100 WBC (Bld) 0.7 % 0-1 [facility] Eosinophils/100 WBC (Bld) 0.5 % 0-5 [facility] Neutrophils (Bld) [#/Vol] 4.7 10*3/uL 2.0-7.7 [facility] Neutrophils/100 WBC (Bld) 63.3 % 47-70 [facility] WBC (Bld) [#/Vol] 7.4 10*3/uL 4.4-11.0 [facility] Blood erythrocytes count (nu mber/volume)Ordered By: Renard Burgos on 02-13-2023 RBC (Bld) [#/Vol] 4.46 10*6/uL 4.6-6.2 [facility] Blood hemoglobin measurement (mass/volume)Ordered By: Renard Burgos on 02-13-2023 Hemoglobin (Bld) [Mass/Vol] 13.6 g/dL 13.0-16.5 [facility] Blood lymphocytes/100 leukoc ytesOrdered By: Renard Burgos on 02-13-2023 Lymphocytes/100 WBC (Bld) 27.0 % 19-41 [facility] Blood monocytes/100 leukocyt esOrdered By: Renard Burgos on 02-13-2023 Monocytes/100 WBC (Bld) 8.1 % 0-10 [facility] Blood platelet mean volumeOr dered By: Renard Burgos on 02-13-2023 Platelet mean volume (Bld) [Entitic vol] 10.7 fL 6.2-12.0 [facility] Determination of erythrocyte mean corpuscular volume (MCV)Ordered By: Renard Burgos on 02-13-2023 MCV (RBC) [Entitic vol] 92.6 fL 80-94 [facility] Hematocrit Auto (Bld) [Volum e fraction]Ordered By: Renard Burgos on 02-13-2023 Hematocrit (Bld) [Volume fraction] 41.3 % 40-54 [facility] - Hematology and Cell countsOrdered By: Renard Burgos on 02-13-2023 Erythrocyte distribution width (RBC) [Entitic vol] 42.7 fL 35.1-43.9 [facility] Erythrocyte distribution width (RBC) [Ratio] 12.6 % 11.6-14.6 [facility] Immature granulocytes/100 WBC (Bld) 0.400 % 0.0-0.9 [facility] Comment on above: IG% - Immature Granu locytes (promyelocytes, myelocytes and metamyelocytes) > 1% indicates that a LEFT SHIFT is Present. MCH (RBC) [Entitic mass] 30.5 pg 27.0-32.0 [facility] Nucleated RBC/100 WBC (Bld) [Ratio] 0 % 0-5 [facility] MCHC Auto (RBC) [Mass/Vol]Or dered By: Renard Burgos on 02-13-2023 MCHC (RBC) [Mass/Vol] 32.9 g/dL 32-36 [facility] Platelets bldOrdered By: Lyubov Burgos on 02-13-2023 Platelets (Bld) [#/Vol] 187 10*3/uL 150-450 [facility] Absolute lymphocyte countOrd ered By: Renard Burgos on 02-06-2023 Lymphocytes Auto (Unsp spec) [#/Vol] 2.28 10*3/uL 0.83-4.51 [facility] Basophil percentageOrdered B y: Renard Burgos on 02-06-2023 Basophils/100 WBC (Bld) 0.5 % 0-1 [facility] Eosinophils/100 WBC (Bld) 0.7 % 0-5 [facility] Neutrophils (Bld) [#/Vol] 5.5 10*3/uL 2.0-7.7 [facility] Neutrophils/100 WBC (Bld) 63.7 % 47-70 [facility] WBC (Bld) [#/Vol] 8.6 10*3/uL 4.4-11.0 [facility] Blood erythrocytes count (nu mber/volume)Ordered By: Renard Burgos on 02-06-2023 RBC (Bld) [#/Vol] 4.71 10*6/uL 4.6-6.2 [facility] Blood hemoglobin measurement (mass/volume)Ordered By: Renard Burgos on 02-06-2023 Hemoglobin (Bld) [Mass/Vol] 14.1 g/dL 13.0-16.5 [facility] Blood lymphocytes/100 leukoc ytesOrdered By: Renard Burgos on 02-06-2023 Lymphocytes/100 WBC (Bld) 26.4 % 19-41 [facility] Blood monocytes/100 leukocyt esOrdered By: Renard Burgos on 02-06-2023 Monocytes/100 WBC (Bld) 8.2 % 0-10 [facility] Blood platelet mean volumeOr dered By: Renard Burgos on 02-06-2023 Platelet mean volume (Bld) [Entitic vol] 11.0 fL 6.2-12.0 [facility] Determination of erythrocyte mean corpuscular volume (MCV)Ordered By: Renard Burgos on 02-06-2023 MCV (RBC) [Entitic vol] 94.5 fL 80-94 [facility] Hematocrit Auto (Bld) [Volum e fraction]Ordered By: Renard Burgos on 02-06-2023 Hematocrit (Bld) [Volume fraction] 44.5 % 40-54 [facility] - Hematology and Cell countsOrdered By: Renard Burgos on 02-06-2023 Erythrocyte distribution width (RBC) [Entitic vol] 43.5 fL 35.1-43.9 [facility] Erythrocyte distribution width (RBC) [Ratio] 12.7 % 11.6-14.6 [facility] Immature granulocytes/100 WBC (Bld) 0.500 % 0.0-0.9 [facility] Comment on above: IG% - Immature Granu locytes (promyelocytes, myelocytes and metamyelocytes) > 1% indicates that a LEFT SHIFT is Present. MCH (RBC) [Entitic mass] 29.9 pg 27.0-32.0 [facility] Nucleated RBC/100 WBC (Bld) [Ratio] 0 % 0-5 [facility] MCHC Auto (RBC) [Mass/Vol]Or dered By: Renard Burgos on 02-06-2023 MCHC (RBC) [Mass/Vol] 31.7 g/dL 32-36 [facility] Platelets bldOrdered By: Lyubov Burogs on 02-06-2023 Platelets (Bld) [#/Vol] 196 10*3/uL 150-450 [facility] Absolute lymphocyte countOrd ered By: Renard Burgos on 01-30-2023 Lymphocytes Auto (Unsp spec) [#/Vol] 1.91 10*3/uL 0.83-4.51 [facility] Basophil percentageOrdered B y: Renard Burgos on 01-30-2023 Basophils/100 WBC (Bld) 0.5 % 0-1 [facility] Eosinophils/100 WBC (Bld) 0.5 % 0-5 [facility] Neutrophils (Bld) [#/Vol] 6.0 10*3/uL 2.0-7.7 [facility] Neutrophils/100 WBC (Bld) 69.4 % 47-70 [facility] WBC (Bld) [#/Vol] 8.7 10*3/uL 4.4-11.0 [facility] Basophil percentage 0 SEEN /hpf 0-5 [facility] Bilirubin Test strip Ql (U)O rdered By: Renard Burgos on 01-30-2023 Bilirubin Ql (U) Negative Negative [facility] Blood erythrocytes count (nu mber/volume)Ordered By: Renard Burgos on 01-30-2023 RBC (Bld) [#/Vol] 4.50 10*6/uL 4.6-6.2 [facility] Blood hemoglobin measurement (mass/volume)Ordered By: Renard Burgos on 01-30-2023 Hemoglobin (Bld) [Mass/Vol] 13.5 g/dL 13.0-16.5 [facility] Blood lymphocytes/100 leukoc ytesOrdered By: Renard Burgos on 01-30-2023 Lymphocytes/100 WBC (Bld) 22.1 % 19-41 [facility] Blood monocytes/100 leukocyt esOrdered By: Renard Burgos on 01-30-2023 Monocytes/100 WBC (Bld) 7.2 % 0-10 [facility] Blood platelet mean volumeOr dered By: Renard Burgos on 01-30-2023 Platelet mean volume (Bld) [Entitic vol] 11.1 fL 6.2-12.0 [facility] Culture, urineOrdered By: Garrick Bhatt on 01-30-2023 Bacteria identified Cx Nom (U) Positive [facility] Determination of erythrocyte mean corpuscular volume (MCV)Ordered By: Renard Burgos on 01-30-2023 MCV (RBC) [Entitic vol] 91.3 fL 80-94 [facility] Hematocrit Auto (Bld) [Volum e fraction]Ordered By: Renard Burgos on 01-30-2023 Hematocrit (Bld) [Volume fraction] 41.1 % 40-54 [facility] Ketones Test strip Ql (U)Ord ered By: Renard Burgos on 01-30-2023 Ketones Ql (U) Negative Negative [facility] - Hematology and Cell countsOrdered By: Renard Burgos on 01-30-2023 Erythrocyte distribution width (RBC) [Entitic vol] 41.4 fL 35.1-43.9 [facility] Erythrocyte distribution width (RBC) [Ratio] 12.6 % 11.6-14.6 [facility] Immature granulocytes/100 WBC (Bld) 0.300 % 0.0-0.9 [facility] Comment on above: IG% - Immature Granu locytes (promyelocytes, myelocytes and metamyelocytes) > 1% indicates that a LEFT SHIFT is Present. MCH (RBC) [Entitic mass] 30.0 pg 27.0-32.0 [facility] Nucleated RBC/100 WBC (Bld) [Ratio] 0 % 0-5 [facility] MCHC Auto (RBC) [Mass/Vol]Or dered By: Renard Burgos on 01-30-2023 MCHC (RBC) [Mass/Vol] 32.8 g/dL 32-36 [facility] Mucus LM Ql (Urine sed)Order ed By: Renard Burgos on 01-30-2023 Mucus Ql (Urine sed) 0 SEEN /hpf [facility] Nitrite Test strip Ql (U)Ord ered By: Renard Burgos on 01-30-2023 Nitrite Ql (U) Negative Negative [facility] No Panel InformationOrdered By: Renard Burgos on 01-30-2023 Prostate Specific Antigen Screen 4.18 ng/mL 0.00-4.00 [facility] Comment on above: This test was perfor med using the TPSA assay method for the[employer] chemistry system. Values obtained with differentassay methods cannot be used interchangably.When changing PSA assays in the course of monitoring apatient, additional sequential testing should be carriedout to confirm baseline values. Platelets bldOrdered By: Lyubov Burgos on 01-30-2023 Platelets (Bld) [#/Vol] 205 10*3/uL 150-450 [facility] Protein Test strip Ql (U)Ord ered By: Renard Burgos on 01-30-2023 Protein Ql (U) Negative Negative [facility] Squamous epithelial cells de tection in urine sediment by light microscopyOrdered By: Renard Burgos on 01-30-2023 Epithelial cells.squamous LM Ql (Urine sed) 0-5 SEEN /hpf 0-5 [facility] Urine blood detectionOrdered By: Renard Burgos on 01-30-2023 RBC Ql (U) Negative Negative [facility] RBC Ql (U) 0 SEEN /hpf 0-5 [facility] Urine clarityOrdered By: Lyubov Burgos on 01-30-2023 Clarity (U) Clear Clear [facility] Urine color determinationOrd ered By: Renard Burgos on 01-30-2023 Color (U) Yellow Yellow [facility] Urine glucose detectionOrder ed By: Renard Burgos on 01-30-2023 Glucose Ql (U) Normal mg/dl Normal [facility] Urine leukocyte esterase det ection by dipstickOrdered By: Renard Burgos on 01-30-2023 Leukocyte esterase Test strip Ql (U) Negative Negative [facility] Urine pHOrdered By: Renard ocampo on 01-30-2023 pH (U) 8.0 [pH] 5.0 - 8.0 [facility] Urine sediment bacteria coun t by microscopy (number/high power field)Ordered By: Renard Burgos on 01-30-2023 Bacteria LM.HPF (Urine sed) [#/Area] 0 /[HPF] None Seen [facility] Urine specific gravity measu rementOrdered By: Renard Burgos on 01-30-2023 Specific gravity (U) [Rel density] 1.010 1.002-1.030 [facility] Urobilinogen Auto test strip Ql (U)Ordered By: Renard Burgos on 01-30-2023 Urobilinogen Ql (U) Normal mg/dl Normal [facility] Absolute lymphocyte countOrd ered By: Renard Burgos on 01-23-2023 Lymphocytes Auto (Unsp spec) [#/Vol] 2.32 10*3/uL 0.83-4.51 [facility] Basophil percentageOrdered B y: Renard Burgos on 01-23-2023 Basophils/100 WBC (Bld) 0.6 % 0-1 [facility] Eosinophils/100 WBC (Bld) 0.4 % 0-5 [facility] Neutrophils (Bld) [#/Vol] 5.3 10*3/uL 2.0-7.7 [facility] Neutrophils/100 WBC (Bld) 62.7 % 47-70 [facility] WBC (Bld) [#/Vol] 8.4 10*3/uL 4.4-11.0 [facility] Blood erythrocytes count (nu mber/volume)Ordered By: Renard Burgos on 01-23-2023 RBC (Bld) [#/Vol] 4.49 10*6/uL 4.6-6.2 [facility] Blood hemoglobin measurement (mass/volume)Ordered By: Renard Burgos on 01-23-2023 Hemoglobin (Bld) [Mass/Vol] 13.6 g/dL 13.0-16.5 [facility] Blood lymphocytes/100 leukoc ytesOrdered By: Renard Burgos on 01-23-2023 Lymphocytes/100 WBC (Bld) 27.5 % 19-41 [facility] Blood monocytes/100 leukocyt esOrdered By: Renard Burgos on 01-23-2023 Monocytes/100 WBC (Bld) 8.2 % 0-10 [facility] Blood platelet mean volumeOr dered By: Renard Burgos on 01-23-2023 Platelet mean volume (Bld) [Entitic vol] 10.9 fL 6.2-12.0 [facility] Determination of erythrocyte mean corpuscular volume (MCV)Ordered By: Renard Burgos on 01-23-2023 MCV (RBC) [Entitic vol] 93.1 fL 80-94 [facility] Hematocrit Auto (Bld) [Volum e fraction]Ordered By: Renard Burgos on 01-23-2023 Hematocrit (Bld) [Volume fraction] 41.8 % 40-54 [facility] - Hematology and Cell countsOrdered By: Renard Burgos on 01-23-2023 Erythrocyte distribution width (RBC) [Entitic vol] 42.7 fL 35.1-43.9 [facility] Erythrocyte distribution width (RBC) [Ratio] 12.6 % 11.6-14.6 [facility] Immature granulocytes/100 WBC (Bld) 0.600 % 0.0-0.9 [facility] Comment on above: IG% - Immature Granu locytes (promyelocytes, myelocytes and metamyelocytes) > 1% indicates that a LEFT SHIFT is Present. MCH (RBC) [Entitic mass] 30.3 pg 27.0-32.0 [facility] Nucleated RBC/100 WBC (Bld) [Ratio] 0 % 0-5 [facility] MCHC Auto (RBC) [Mass/Vol]Or dered By: Renard Burgos on 01-23-2023 MCHC (RBC) [Mass/Vol] 32.5 g/dL 32-36 [facility] Platelets bldOrdered By: Pet er Loretta on 01-23-2023 Platelets (Bld) [#/Vol] 220 10*3/uL 150-450 [facility] Absolute lymphocyte countOrd ered By: Renard Burgos on 01-16-2023 Lymphocytes Auto (Unsp spec) [#/Vol] 1.80 10*3/uL 0.83-4.51 [facility] Basophil percentageOrdered B y: Renard Burgos on 01-16-2023 Basophils/100 WBC (Bld) 0.4 % 0-1 [facility] Eosinophils/100 WBC (Bld) 0.4 % 0-5 [facility] Neutrophils (Bld) [#/Vol] 7.2 10*3/uL 2.0-7.7 [facility] Neutrophils/100 WBC (Bld) 73.5 % 47-70 [facility] WBC (Bld) [#/Vol] 9.8 10*3/uL 4.4-11.0 [facility] Blood erythrocytes count (nu mber/volume)Ordered By: Renard Burgos on 01-16-2023 RBC (Bld) [#/Vol] 4.77 10*6/uL 4.6-6.2 [facility] Blood hemoglobin measurement (mass/volume)Ordered By: Renard Burgos on 01-16-2023 Hemoglobin (Bld) [Mass/Vol] 14.1 g/dL 13.0-16.5 [facility] Blood lymphocytes/100 leukoc ytesOrdered By: Renard Burgos on 01-16-2023 Lymphocytes/100 WBC (Bld) 18.4 % 19-41 [facility] Blood monocytes/100 leukocyt esOrdered By: Renard Burgos on 01-16-2023 Monocytes/100 WBC (Bld) 6.9 % 0-10 [facility] Blood platelet mean volumeOr dered By: Renard Burgos on 01-16-2023 Platelet mean volume (Bld) [Entitic vol] 10.6 fL 6.2-12.0 [facility] Determination of erythrocyte mean corpuscular volume (MCV)Ordered By: Renard Burgos on 01-16-2023 MCV (RBC) [Entitic vol] 92.5 fL 80-94 [facility] Hematocrit Auto (Bld) [Volum e fraction]Ordered By: Renard Burgos on 01-16-2023 Hematocrit (Bld) [Volume fraction] 44.1 % 40-54 [facility] - Hematology and Cell countsOrdered By: Renard Burgos on 01-16-2023 Erythrocyte distribution width (RBC) [Entitic vol] 41.8 fL 35.1-43.9 [facility] Erythrocyte distribution width (RBC) [Ratio] 12.4 % 11.6-14.6 [facility] Immature granulocytes/100 WBC (Bld) 0.400 % 0.0-0.9 [facility] Comment on above: IG% - Immature Granu locytes (promyelocytes, myelocytes and metamyelocytes) > 1% indicates that a LEFT SHIFT is Present. MCH (RBC) [Entitic mass] 29.6 pg 27.0-32.0 [facility] Nucleated RBC/100 WBC (Bld) [Ratio] 0 % 0-5 [facility] MCHC Auto (RBC) [Mass/Vol]Or dered By: Renard Burgos on 01-16-2023 MCHC (RBC) [Mass/Vol] 32.0 g/dL 32-36 [facility] Platelets bldOrdered By: Lyubov Burgos on 01-16-2023 Platelets (Bld) [#/Vol] 221 10*3/uL 150-450 [facility] Absolute lymphocyte countOrd ered By: Renard Burgos on 01-09-2023 Lymphocytes Auto (Unsp spec) [#/Vol] 2.41 10*3/uL 0.83-4.51 [facility] Basophil percentageOrdered B y: Renard Burgos on 01-09-2023 Basophils/100 WBC (Bld) 0.7 % 0-1 [facility] Eosinophils/100 WBC (Bld) 0.8 % 0-5 [facility] Neutrophils (Bld) [#/Vol] 5.4 10*3/uL 2.0-7.7 [facility] Neutrophils/100 WBC (Bld) 60.5 % 47-70 [facility] WBC (Bld) [#/Vol] 8.9 10*3/uL 4.4-11.0 [facility] Blood erythrocytes count (nu mber/volume)Ordered By: Renard Burgos on 01-09-2023 RBC (Bld) [#/Vol] 4.56 10*6/uL 4.6-6.2 [facility] Blood hemoglobin measurement (mass/volume)Ordered By: Renard Burgos on 01-09-2023 Hemoglobin (Bld) [Mass/Vol] 13.8 g/dL 13.0-16.5 [facility] Blood lymphocytes/100 leukoc ytesOrdered By: Renard Burgos on 01-09-2023 Lymphocytes/100 WBC (Bld) 27.0 % 19-41 [facility] Blood monocytes/100 leukocyt esOrdered By: Renard Burgos on 01-09-2023 Monocytes/100 WBC (Bld) 10.7 % 0-10 [facility] Blood platelet mean volumeOr dered By: Renard Burgos on 01-09-2023 Platelet mean volume (Bld) [Entitic vol] 10.8 fL 6.2-12.0 [facility] Determination of erythrocyte mean corpuscular volume (MCV)Ordered By: Renard Burgos on 01-09-2023 MCV (RBC) [Entitic vol] 92.5 fL 80-94 [facility] Hematocrit Auto (Bld) [Volum e fraction]Ordered By: Renard Burgos on 01-09-2023 Hematocrit (Bld) [Volume fraction] 42.2 % 40-54 [facility] - Hematology and Cell countsOrdered By: Renard Burgos on 01-09-2023 Erythrocyte distribution width (RBC) [Entitic vol] 42.7 fL 35.1-43.9 [facility] Erythrocyte distribution width (RBC) [Ratio] 12.5 % 11.6-14.6 [facility] Immature granulocytes/100 WBC (Bld) 0.300 % 0.0-0.9 [facility] Comment on above: IG% - Immature Granu locytes (promyelocytes, myelocytes and metamyelocytes) > 1% indicates that a LEFT SHIFT is Present. MCH (RBC) [Entitic mass] 30.3 pg 27.0-32.0 [facility] Nucleated RBC/100 WBC (Bld) [Ratio] 0 % 0-5 [facility] MCHC Auto (RBC) [Mass/Vol]Or dered By: Renard Burgos on 01-09-2023 MCHC (RBC) [Mass/Vol] 32.7 g/dL 32-36 [facility] Platelets bldOrdered By: Lyubov Burgos on 01-09-2023 Platelets (Bld) [#/Vol] 209 10*3/uL 150-450 [facility] Absolute lymphocyte countOrd ered By: Renard Burgos on 01-03-2023 Lymphocytes Auto (Unsp spec) [#/Vol] 2.18 10*3/uL 0.83-4.51 [facility] Basophil percentageOrdered B y: Renard Burgos on 01-03-2023 Basophils/100 WBC (Bld) 0.6 % 0-1 [facility] Eosinophils/100 WBC (Bld) 0.5 % 0-5 [facility] Neutrophils (Bld) [#/Vol] 5.4 10*3/uL 2.0-7.7 [facility] Neutrophils/100 WBC (Bld) 64.2 % 47-70 [facility] WBC (Bld) [#/Vol] 8.4 10*3/uL 4.4-11.0 [facility] Blood erythrocytes count (nu mber/volume)Ordered By: Renard Burgos on 01-03-2023 RBC (Bld) [#/Vol] 4.59 10*6/uL 4.6-6.2 [facility] Blood hemoglobin measurement (mass/volume)Ordered By: Renard Burgos on 01-03-2023 Hemoglobin (Bld) [Mass/Vol] 13.9 g/dL 13.0-16.5 [facility] Blood lymphocytes/100 leukoc ytesOrdered By: Renard Burgos on 01-03-2023 Lymphocytes/100 WBC (Bld) 25.9 % 19-41 [facility] Blood monocytes/100 leukocyt esOrdered By: Renard Burgos on 01-03-2023 Monocytes/100 WBC (Bld) 8.3 % 0-10 [facility] Blood platelet mean volumeOr dered By: Renard Burgos on 01-03-2023 Platelet mean volume (Bld) [Entitic vol] 11.0 fL 6.2-12.0 [facility] Determination of erythrocyte mean corpuscular volume (MCV)Ordered By: Renard Burgos on 01-03-2023 MCV (RBC) [Entitic vol] 92.8 fL 80-94 [facility] Hematocrit Auto (Bld) [Volum e fraction]Ordered By: Renard Burgos on 01-03-2023 Hematocrit (Bld) [Volume fraction] 42.6 % 40-54 [facility] - Hematology and Cell countsOrdered By: Renard Burgos on 01-03-2023 Erythrocyte distribution width (RBC) [Entitic vol] 42.5 fL 35.1-43.9 [facility] Erythrocyte distribution width (RBC) [Ratio] 12.6 % 11.6-14.6 [facility] Immature granulocytes/100 WBC (Bld) 0.500 % 0.0-0.9 [facility] Comment on above: IG% - Immature Granu locytes (promyelocytes, myelocytes and metamyelocytes) > 1% indicates that a LEFT SHIFT is Present. MCH (RBC) [Entitic mass] 30.3 pg 27.0-32.0 [facility] Nucleated RBC/100 WBC (Bld) [Ratio] 0 % 0-5 [facility] MCHC Auto (RBC) [Mass/Vol]Or dered By: Renard Burgos on 01-03-2023 MCHC (RBC) [Mass/Vol] 32.6 g/dL 32-36 [facility] No Panel InformationOrdered By: Renard Burgos on 01-03-2023 Prostate Specific Antigen Screen 3.37 ng/mL 0.00-4.00 [facility] Comment on above: This test was perfor med using the TPSA assay method for the[employer] chemistry system. Values obtained with differentassay methods cannot be used interchangably.When changing PSA assays in the course of monitoring apatient, additional sequential testing should be carriedout to confirm baseline values. Platelets bldOrdered By: Lyubov Burgos on 01-03-2023 Platelets (Bld) [#/Vol] 200 10*3/uL 150-450 [facility] Absolute lymphocyte countOrd ered By: Renard Burgos on 12-26-2022 Lymphocytes Auto (Unsp spec) [#/Vol] 1.80 10*3/uL 0.83-4.51 [facility] Basophil percentageOrdered B y: Renard Burgos on 12-26-2022 Basophils/100 WBC (Bld) 0.4 % 0-1 [facility] Eosinophils/100 WBC (Bld) 0.6 % 0-5 [facility] Neutrophils (Bld) [#/Vol] 6.2 10*3/uL 2.0-7.7 [facility] Neutrophils/100 WBC (Bld) 69.8 % 47-70 [facility] WBC (Bld) [#/Vol] 8.9 10*3/uL 4.4-11.0 [facility] Blood erythrocytes count (nu mber/volume)Ordered By: Renard Burgos on 12-26-2022 RBC (Bld) [#/Vol] 4.58 10*6/uL 4.6-6.2 [facility] Blood hemoglobin measurement (mass/volume)Ordered By: Renard Burgos on 12-26-2022 Hemoglobin (Bld) [Mass/Vol] 14.0 g/dL 13.0-16.5 [facility] Blood lymphocytes/100 leukoc ytesOrdered By: Renard Burgos on 12-26-2022 Lymphocytes/100 WBC (Bld) 20.2 % 19-41 [facility] Blood monocytes/100 leukocyt esOrdered By: Renard Burgos on 12-26-2022 Monocytes/100 WBC (Bld) 8.6 % 0-10 [facility] Blood platelet mean volumeOr dered By: Renard Burgos on 12-26-2022 Platelet mean volume (Bld) [Entitic vol] 10.8 fL 6.2-12.0 [facility] Determination of erythrocyte mean corpuscular volume (MCV)Ordered By: Renard Burgos on 12-26-2022 MCV (RBC) [Entitic vol] 93.2 fL 80-94 [facility] Hematocrit Auto (Bld) [Volum e fraction]Ordered By: Renard Burgos on 12-26-2022 Hematocrit (Bld) [Volume fraction] 42.7 % 40-54 [facility] - Hematology and Cell countsOrdered By: Renard Burgos on 12-26-2022 Erythrocyte distribution width (RBC) [Entitic vol] 42.5 fL 35.1-43.9 [facility] Erythrocyte distribution width (RBC) [Ratio] 12.5 % 11.6-14.6 [facility] Immature granulocytes/100 WBC (Bld) 0.400 % 0.0-0.9 [facility] Comment on above: IG% - Immature Granu locytes (promyelocytes, myelocytes and metamyelocytes) > 1% indicates that a LEFT SHIFT is Present. MCH (RBC) [Entitic mass] 30.6 pg 27.0-32.0 [facility] Nucleated RBC/100 WBC (Bld) [Ratio] 0 % 0-5 [facility] MCHC Auto (RBC) [Mass/Vol]Or dered By: Renard Burgos on 12-26-2022 MCHC (RBC) [Mass/Vol] 32.8 g/dL 32-36 [facility] Platelets bldOrdered By: Lyubov Burgos on 12-26-2022 Platelets (Bld) [#/Vol] 200 10*3/uL 150-450 [facility] Absolute lymphocyte countOrd ered By: Renard Burgos on 12-19-2022 Lymphocytes Auto (Unsp spec) [#/Vol] 2.24 10*3/uL 0.83-4.51 [facility] Basophil percentageOrdered B y: Renard Burgos on 12-19-2022 Basophils/100 WBC (Bld) 0.3 % 0-1 [facility] Eosinophils/100 WBC (Bld) 0.8 % 0-5 [facility] Neutrophils (Bld) [#/Vol] 5.7 10*3/uL 2.0-7.7 [facility] Neutrophils/100 WBC (Bld) 64.1 % 47-70 [facility] WBC (Bld) [#/Vol] 8.9 10*3/uL 4.4-11.0 [facility] Blood erythrocytes count (nu mber/volume)Ordered By: Renard Burgos on 12-19-2022 RBC (Bld) [#/Vol] 4.44 10*6/uL 4.6-6.2 [facility] Blood hemoglobin measurement (mass/volume)Ordered By: Renard Burgos on 12-19-2022 Hemoglobin (Bld) [Mass/Vol] 13.5 g/dL 13.0-16.5 [facility] Blood lymphocytes/100 leukoc ytesOrdered By: Renard Burgos on 12-19-2022 Lymphocytes/100 WBC (Bld) 25.1 % 19-41 [facility] Blood monocytes/100 leukocyt esOrdered By: Renard Burgos on 12-19-2022 Monocytes/100 WBC (Bld) 9.4 % 0-10 [facility] Blood platelet mean volumeOr dered By: Renard Brugos on 12-19-2022 Platelet mean volume (Bld) [Entitic vol] 11.0 fL 6.2-12.0 [facility] Determination of erythrocyte mean corpuscular volume (MCV)Ordered By: Renard Burgos on 12-19-2022 MCV (RBC) [Entitic vol] 92.8 fL 80-94 [facility] Hematocrit Auto (Bld) [Volum e fraction]Ordered By: Renard Burgos on 12-19-2022 Hematocrit (Bld) [Volume fraction] 41.2 % 40-54 [facility] - Hematology and Cell countsOrdered By: Renard Burgos on 12-19-2022 Erythrocyte distribution width (RBC) [Entitic vol] 43.2 fL 35.1-43.9 [facility] Erythrocyte distribution width (RBC) [Ratio] 12.7 % 11.6-14.6 [facility] Immature granulocytes/100 WBC (Bld) 0.300 % 0.0-0.9 [facility] Comment on above: IG% - Immature Granu locytes (promyelocytes, myelocytes and metamyelocytes) > 1% indicates that a LEFT SHIFT is Present. MCH (RBC) [Entitic mass] 30.4 pg 27.0-32.0 [facility] Nucleated RBC/100 WBC (Bld) [Ratio] 0 % 0-5 [facility] MCHC Auto (RBC) [Mass/Vol]Or dered By: Renard Burgos on 12-19-2022 MCHC (RBC) [Mass/Vol] 32.8 g/dL 32-36 [facility] Platelets bldOrdered By: Pet lizy Burgos on 12-19-2022 Platelets (Bld) [#/Vol] 194 10*3/uL 150-450 [facility] Absolute lymphocyte countOrd ered By: Renard Burgos on 12-12-2022 Lymphocytes Auto (Unsp spec) [#/Vol] 2.33 10*3/uL 0.83-4.51 [facility] Basophil percentageOrdered B y: Renard Burgos on 12-12-2022 Basophils/100 WBC (Bld) 0.6 % 0-1 [facility] Eosinophils/100 WBC (Bld) 0.9 % 0-5 [facility] Neutrophils (Bld) [#/Vol] 5.8 10*3/uL 2.0-7.7 [facility] Neutrophils/100 WBC (Bld) 63.5 % 47-70 [facility] WBC (Bld) [#/Vol] 9.1 10*3/uL 4.4-11.0 [facility] Blood erythrocytes count (nu mber/volume)Ordered By: Renard Burgos on 12-12-2022 RBC (Bld) [#/Vol] 4.52 10*6/uL 4.6-6.2 [facility] Blood hemoglobin measurement (mass/volume)Ordered By: Renard Burgos on 12-12-2022 Hemoglobin (Bld) [Mass/Vol] 13.9 g/dL 13.0-16.5 [facility] Blood lymphocytes/100 leukoc ytesOrdered By: Renard Burgos on 12-12-2022 Lymphocytes/100 WBC (Bld) 25.6 % 19-41 [facility] Blood monocytes/100 leukocyt esOrdered By: Renard Burgos on 12-12-2022 Monocytes/100 WBC (Bld) 9.1 % 0-10 [facility] Blood platelet mean volumeOr dered By: Renard Burgos on 12-12-2022 Platelet mean volume (Bld) [Entitic vol] 10.9 fL 6.2-12.0 [facility] Determination of erythrocyte mean corpuscular volume (MCV)Ordered By: Renard Burgos on 12-12-2022 MCV (RBC) [Entitic vol] 94.2 fL 80-94 [facility] Hematocrit Auto (Bld) [Volum e fraction]Ordered By: Reanrd Burgos on 12-12-2022 Hematocrit (Bld) [Volume fraction] 42.6 % 40-54 [facility] - Hematology and Cell countsOrdered By: Renard Burgos on 12-12-2022 Erythrocyte distribution width (RBC) [Entitic vol] 44.3 fL 35.1-43.9 [facility] Erythrocyte distribution width (RBC) [Ratio] 12.8 % 11.6-14.6 [facility] Immature granulocytes/100 WBC (Bld) 0.300 % 0.0-0.9 [facility] Comment on above: IG% - Immature Granu locytes (promyelocytes, myelocytes and metamyelocytes) > 1% indicates that a LEFT SHIFT is Present. MCH (RBC) [Entitic mass] 30.8 pg 27.0-32.0 [facility] Nucleated RBC/100 WBC (Bld) [Ratio] 0 % 0-5 [facility] MCHC Auto (RBC) [Mass/Vol]Or dered By: Renard Burgos on 12-12-2022 MCHC (RBC) [Mass/Vol] 32.6 g/dL 32-36 [facility] Platelets bldOrdered By: Lyubov Burgos on 12-12-2022 Platelets (Bld) [#/Vol] 211 10*3/uL 150-450 [facility] Absolute lymphocyte countOrd ered By: Renard Burgos on 12-05-2022 Lymphocytes Auto (Unsp spec) [#/Vol] 1.94 10*3/uL 0.83-4.51 [facility] Basophil percentageOrdered B y: Renard Burgos on 12-05-2022 Basophils/100 WBC (Bld) 0.4 % 0-1 [facility] Eosinophils/100 WBC (Bld) 0.9 % 0-5 [facility] Neutrophils (Bld) [#/Vol] 4.1 10*3/uL 2.0-7.7 [facility] Neutrophils/100 WBC (Bld) 61.2 % 47-70 [facility] WBC (Bld) [#/Vol] 6.7 10*3/uL 4.4-11.0 [facility] Blood erythrocytes count (nu mber/volume)Ordered By: Renard Burgos on 12-05-2022 RBC (Bld) [#/Vol] 4.39 10*6/uL 4.6-6.2 [facility] Blood hemoglobin measurement (mass/volume)Ordered By: Renard Burgos on 12-05-2022 Hemoglobin (Bld) [Mass/Vol] 13.3 g/dL 13.0-16.5 [facility] Blood lymphocytes/100 leukoc ytesOrdered By: Renard Burgos on 12-05-2022 Lymphocytes/100 WBC (Bld) 28.8 % 19-41 [facility] Blood monocytes/100 leukocyt esOrdered By: Renard Burgos on 12-05-2022 Monocytes/100 WBC (Bld) 8.3 % 0-10 [facility] Blood platelet mean volumeOr dered By: Renard Burgos on 12-05-2022 Platelet mean volume (Bld) [Entitic vol] 10.8 fL 6.2-12.0 [facility] Determination of erythrocyte mean corpuscular volume (MCV)Ordered By: Renard Burgos on 12-05-2022 MCV (RBC) [Entitic vol] 90.7 fL 80-94 [facility] Hematocrit Auto (Bld) [Volum e fraction]Ordered By: Renard Burgos on 12-05-2022 Hematocrit (Bld) [Volume fraction] 39.8 % 40-54 [facility] - Hematology and Cell countsOrdered By: Renard Burgos on 12-05-2022 Erythrocyte distribution width (RBC) [Entitic vol] 41.8 fL 35.1-43.9 [facility] Erythrocyte distribution width (RBC) [Ratio] 12.6 % 11.6-14.6 [facility] Immature granulocytes/100 WBC (Bld) 0.400 % 0.0-0.9 [facility] Comment on above: IG% - Immature Granu locytes (promyelocytes, myelocytes and metamyelocytes) > 1% indicates that a LEFT SHIFT is Present. MCH (RBC) [Entitic mass] 30.3 pg 27.0-32.0 [facility] Nucleated RBC/100 WBC (Bld) [Ratio] 0 % 0-5 [facility] MCHC Auto (RBC) [Mass/Vol]Or dered By: Renard Burgos on 12-05-2022 MCHC (RBC) [Mass/Vol] 33.4 g/dL 32-36 [facility] Platelets bldOrdered By: Lyubov Brugos on 12-05-2022 Platelets (Bld) [#/Vol] 208 10*3/uL 150-450 [facility] Absolute lymphocyte countOrd ered By: Renard Burgos on 11-28-2022 Lymphocytes Auto (Unsp spec) [#/Vol] 2.07 10*3/uL 0.83-4.51 [facility] Basophil percentageOrdered B y: Renard Burgos on 11-28-2022 Basophils/100 WBC (Bld) 0.4 % 0-1 [facility] Eosinophils/100 WBC (Bld) 0.6 % 0-5 [facility] Neutrophils (Bld) [#/Vol] 5.1 10*3/uL 2.0-7.7 [facility] Neutrophils/100 WBC (Bld) 64.6 % 47-70 [facility] WBC (Bld) [#/Vol] 7.9 10*3/uL 4.4-11.0 [facility] Blood erythrocytes count (nu mber/volume)Ordered By: Renard Burgos on 11-28-2022 RBC (Bld) [#/Vol] 4.54 10*6/uL 4.6-6.2 [facility] Blood hemoglobin measurement (mass/volume)Ordered By: Renard Burgos on 11-28-2022 Hemoglobin (Bld) [Mass/Vol] 13.7 g/dL 13.0-16.5 [facility] Blood lymphocytes/100 leukoc ytesOrdered By: Renard Burgos on 11-28-2022 Lymphocytes/100 WBC (Bld) 26.2 % 19-41 [facility] Blood monocytes/100 leukocyt esOrdered By: Renard Burgos on 11-28-2022 Monocytes/100 WBC (Bld) 7.7 % 0-10 [facility] Blood platelet mean volumeOr dered By: Renard Burgos on 11-28-2022 Platelet mean volume (Bld) [Entitic vol] 10.6 fL 6.2-12.0 [facility] Determination of erythrocyte mean corpuscular volume (MCV)Ordered By: Renard Burgos on 11-28-2022 MCV (RBC) [Entitic vol] 93.6 fL 80-94 [facility] Hematocrit Auto (Bld) [Volum e fraction]Ordered By: Renard Burgos on 11-28-2022 Hematocrit (Bld) [Volume fraction] 42.5 % 40-54 [facility] - Hematology and Cell countsOrdered By: Renard Burgos on 11-28-2022 Erythrocyte distribution width (RBC) [Entitic vol] 43.5 fL 35.1-43.9 [facility] Erythrocyte distribution width (RBC) [Ratio] 12.7 % 11.6-14.6 [facility] Immature granulocytes/100 WBC (Bld) 0.500 % 0.0-0.9 [facility] Comment on above: IG% - Immature Granu locytes (promyelocytes, myelocytes and metamyelocytes) > 1% indicates that a LEFT SHIFT is Present. MCH (RBC) [Entitic mass] 30.2 pg 27.0-32.0 [facility] Nucleated RBC/100 WBC (Bld) [Ratio] 0 % 0-5 [facility] MCHC Auto (RBC) [Mass/Vol]Or dered By: Renard Burgos on 11-28-2022 MCHC (RBC) [Mass/Vol] 32.2 g/dL 32-36 [facility] Platelets bldOrdered By: Lyubov Burgos on 11-28-2022 Platelets (Bld) [#/Vol] 201 10*3/uL 150-450 [facility] Absolute lymphocyte countOrd ered By: Renard Burgos on 11-21-2022 Lymphocytes Auto (Unsp spec) [#/Vol] 2.32 10*3/uL 0.83-4.51 [facility] Basophil percentageOrdered B y: Renard Burgos on 11-21-2022 Basophils/100 WBC (Bld) 0.6 % 0-1 [facility] Eosinophils/100 WBC (Bld) 0.7 % 0-5 [facility] Neutrophils (Bld) [#/Vol] 5.0 10*3/uL 2.0-7.7 [facility] Neutrophils/100 WBC (Bld) 60.6 % 47-70 [facility] WBC (Bld) [#/Vol] 8.2 10*3/uL 4.4-11.0 [facility] Blood erythrocytes count (nu mber/volume)Ordered By: Renard Burgos on 11-21-2022 RBC (Bld) [#/Vol] 4.71 10*6/uL 4.6-6.2 [facility] Blood hemoglobin measurement (mass/volume)Ordered By: Renard Burgos on 11-21-2022 Hemoglobin (Bld) [Mass/Vol] 14.3 g/dL 13.0-16.5 [facility] Blood lymphocytes/100 leukoc ytesOrdered By: Renard Burgos on 11-21-2022 Lymphocytes/100 WBC (Bld) 28.2 % 19-41 [facility] Blood monocytes/100 leukocyt esOrdered By: Renard Burgos on 11-21-2022 Monocytes/100 WBC (Bld) 9.2 % 0-10 [facility] Blood platelet mean volumeOr dered By: Renard Burgos on 11-21-2022 Platelet mean volume (Bld) [Entitic vol] 10.4 fL 6.2-12.0 [facility] Determination of erythrocyte mean corpuscular volume (MCV)Ordered By: Renard Burgos on 11-21-2022 MCV (RBC) [Entitic vol] 91.9 fL 80-94 [facility] Hematocrit Auto (Bld) [Volum e fraction]Ordered By: Renard Burgos on 11-21-2022 Hematocrit (Bld) [Volume fraction] 43.3 % 40-54 [facility] - Hematology and Cell countsOrdered By: Renard Burgos on 11-21-2022 Erythrocyte distribution width (RBC) [Entitic vol] 43.1 fL 35.1-43.9 [facility] Erythrocyte distribution width (RBC) [Ratio] 12.8 % 11.6-14.6 [facility] Immature granulocytes/100 WBC (Bld) 0.700 % 0.0-0.9 [facility] Comment on above: IG% - Immature Granu locytes (promyelocytes, myelocytes and metamyelocytes) > 1% indicates that a LEFT SHIFT is Present. MCH (RBC) [Entitic mass] 30.4 pg 27.0-32.0 [facility] Nucleated RBC/100 WBC (Bld) [Ratio] 0 % 0-5 [facility] MCHC Auto (RBC) [Mass/Vol]Or dered By: Renard Burgos on 11-21-2022 MCHC (RBC) [Mass/Vol] 33.0 g/dL 32-36 [facility] Platelets bldOrdered By: Lyubov Burgos on 11-21-2022 Platelets (Bld) [#/Vol] 219 10*3/uL 150-450 [facility] Absolute lymphocyte countOrd ered By: Renard Burgos on 11-14-2022 Lymphocytes Auto (Unsp spec) [#/Vol] 1.82 10*3/uL 0.83-4.51 [facility] Basophil percentageOrdered B y: Renard Burgos on 11-14-2022 Basophils/100 WBC (Bld) 0.4 % 0-1 [facility] Chloride [Moles/Vol] 107 mmol/L 98-107 [facility] Eosinophils/100 WBC (Bld) 0.4 % 0-5 [facility] Glucose [Mass/Vol] 121 mg/dL 74-106 [facility] Comment on above: Fasting Glucose resu lt from 100 to 125 mg/dL suggests IMPAIRED HOMEOSTASIS per A.D.A. criteria. Neutrophils (Bld) [#/Vol] 4.7 10*3/uL 2.0-7.7 [facility] Neutrophils/100 WBC (Bld) 66.6 % 47-70 [facility] Potassium [Moles/Vol] 3.7 mmol/L 3.5-5.1 [facility] Sodium [Moles/Vol] 141 mmol/L 136-145 [facility] WBC (Bld) [#/Vol] 7.1 10*3/uL 4.4-11.0 [facility] Blood erythrocytes count (nu mber/volume)Ordered By: Renard Burgos on 11-14-2022 RBC (Bld) [#/Vol] 4.35 10*6/uL 4.6-6.2 [facility] Blood hemoglobin measurement (mass/volume)Ordered By: Renard Burgos on 11-14-2022 Hemoglobin (Bld) [Mass/Vol] 13.6 g/dL 13.0-16.5 [facility] Blood lymphocytes/100 leukoc ytesOrdered By: Renard Burgos on 11-14-2022 Lymphocytes/100 WBC (Bld) 25.6 % 19-41 [facility] Blood monocytes/100 leukocyt esOrdered By: Renard Burgos on 11-14-2022 Monocytes/100 WBC (Bld) 6.6 % 0-10 [facility] Blood platelet mean volumeOr dered By: Renard Burgos on 11-14-2022 Platelet mean volume (Bld) [Entitic vol] 10.9 fL 6.2-12.0 [facility] Determination of erythrocyte mean corpuscular volume (MCV)Ordered By: Renard Burgos on 11-14-2022 MCV (RBC) [Entitic vol] 93.3 fL 80-94 [facility] Hematocrit Auto (Bld) [Volum e fraction]Ordered By: Renard Burgos on 11-14-2022 Hematocrit (Bld) [Volume fraction] 40.6 % 40-54 [facility] - Chemistry and C hemistry - challengeOrdered By: Renard Burgos on 11-14-2022 CO2 [Moles/Vol] 31.0 mmol/L 21.0-32.0 [facility] Urea nitrogen/Creatinine [Mass ratio] 26.0 mg/mg 10-20 [facility] - Hematology and Cell countsOrdered By: Renard Burgos on 11-14-2022 Erythrocyte distribution width (RBC) [Entitic vol] 43.9 fL 35.1-43.9 [facility] Erythrocyte distribution width (RBC) [Ratio] 12.8 % 11.6-14.6 [facility] Immature granulocytes/100 WBC (Bld) 0.400 % 0.0-0.9 [facility] Comment on above: IG% - Immature Granu locytes (promyelocytes, myelocytes and metamyelocytes) > 1% indicates that a LEFT SHIFT is Present. MCH (RBC) [Entitic mass] 31.3 pg 27.0-32.0 [facility] Nucleated RBC/100 WBC (Bld) [Ratio] 0 % 0-5 [facility] MCHC Auto (RBC) [Mass/Vol]Or dered By: Renard Burgos on 11-14-2022 MCHC (RBC) [Mass/Vol] 33.5 g/dL 32-36 [facility] No Panel InformationOrdered By: Renard Burgos on 11-14-2022 Estimated GFR (MDRD) Amer 147 mL/min >60 [facility] Comment on above: GFR Calc Estimated GFR (MDRD) Non-Af Amer 122 mL/min >60 [facility] Comment on above: Non- GFR Calc Platelets bldOrdered By: Lyubov Burgos on 11-14-2022 Platelets (Bld) [#/Vol] 202 10*3/uL 150-450 [facility] Serum or plasma calcium gordy urement (mass/volume)Ordered By: Renard Burgos on 11-14-2022 Calcium [Mass/Vol] 8.2 mg/dL 8.5-10.1 [facility] Serum or plasma creatinine m easurement (mass/volume)Ordered By: Renard Burgos on 11-14-2022 Creatinine [Mass/Vol] 0.69 mg/dL 0.70-1.30 [facility] Comment on above: The validity of the calculated GFR & GFRAA in patients over 70 years has not been determined. Clinical correlation is essential. Serum or plasma urea nitroge n measurement (mass/volume)Ordered By: Renard Burgos on 11-14-2022 Urea nitrogen [Mass/Vol] 18 mg/dL 7-18 [facility] Thin prep Papanicolaou smear with manual screeningOrdered By: Renard Burgos on 11-14-2022 Thin prep Papanicolaou smear with manual screening 3 5-15 [facility] Absolute lymphocyte countOrd ered By: Renard Burgos on 11-07-2022 Lymphocytes Auto (Unsp spec) [#/Vol] 1.99 10*3/uL 0.83-4.51 [facility] Basophil percentageOrdered B y: Renard Burgos on 11-07-2022 Basophils/100 WBC (Bld) 0.8 % 0-1 [facility] Eosinophils/100 WBC (Bld) 0.5 % 0-5 [facility] Neutrophils (Bld) [#/Vol] 5.1 10*3/uL 2.0-7.7 [facility] Neutrophils/100 WBC (Bld) 64.0 % 47-70 [facility] WBC (Bld) [#/Vol] 8.0 10*3/uL 4.4-11.0 [facility] Blood erythrocytes count (nu mber/volume)Ordered By: Renard Burgos on 11-07-2022 RBC (Bld) [#/Vol] 4.45 10*6/uL 4.6-6.2 [facility] Blood hemoglobin measurement (mass/volume)Ordered By: Renard Burgos on 11-07-2022 Hemoglobin (Bld) [Mass/Vol] 13.7 g/dL 13.0-16.5 [facility] Blood lymphocytes/100 leukoc ytesOrdered By: Renard Burgos on 11-07-2022 Lymphocytes/100 WBC (Bld) 25.0 % 19-41 [facility] Blood monocytes/100 leukocyt esOrdered By: Renard Burgos on 11-07-2022 Monocytes/100 WBC (Bld) 9.4 % 0-10 [facility] Blood platelet mean volumeOr dered By: Renard Burgos on 11-07-2022 Platelet mean volume (Bld) [Entitic vol] 10.7 fL 6.2-12.0 [facility] Determination of erythrocyte mean corpuscular volume (MCV)Ordered By: Renard Burgos on 11-07-2022 MCV (RBC) [Entitic vol] 91.5 fL 80-94 [facility] Hematocrit Auto (Bld) [Volum e fraction]Ordered By: Renard Burgos on 11-07-2022 Hematocrit (Bld) [Volume fraction] 40.7 % 40-54 [facility] - Hematology and Cell countsOrdered By: Renard Burgos on 11-07-2022 Erythrocyte distribution width (RBC) [Entitic vol] 42.4 fL 35.1-43.9 [facility] Erythrocyte distribution width (RBC) [Ratio] 12.8 % 11.6-14.6 [facility] Immature granulocytes/100 WBC (Bld) 0.300 % 0.0-0.9 [facility] Comment on above: IG% - Immature Granu locytes (promyelocytes, myelocytes and metamyelocytes) > 1% indicates that a LEFT SHIFT is Present. MCH (RBC) [Entitic mass] 30.8 pg 27.0-32.0 [facility] Nucleated RBC/100 WBC (Bld) [Ratio] 0 % 0-5 [facility] MCHC Auto (RBC) [Mass/Vol]Or dered By: Renard Burgos on 11-07-2022 MCHC (RBC) [Mass/Vol] 33.7 g/dL 32-36 [facility] Platelets bldOrdered By: Lyubov Burgos on 11-07-2022 Platelets (Bld) [#/Vol] 220 10*3/uL 150-450 [facility] Absolute lymphocyte countOrd ered By: Renard Burgos on 10-31-2022 Lymphocytes Auto (Unsp spec) [#/Vol] 1.97 10*3/uL 0.83-4.51 [facility] Basophil percentageOrdered B y: Renard Burgos on 10-31-2022 Basophils/100 WBC (Bld) 0.5 % 0-1 [facility] Eosinophils/100 WBC (Bld) 0.6 % 0-5 [facility] Neutrophils (Bld) [#/Vol] 6.7 10*3/uL 2.0-7.7 [facility] Neutrophils/100 WBC (Bld) 69.9 % 47-70 [facility] WBC (Bld) [#/Vol] 9.6 10*3/uL 4.4-11.0 [facility] Blood erythrocytes count (nu mber/volume)Ordered By: Renard Burgos on 10-31-2022 RBC (Bld) [#/Vol] 4.47 10*6/uL 4.6-6.2 [facility] Blood hemoglobin measurement (mass/volume)Ordered By: Renard Burgos on 10-31-2022 Hemoglobin (Bld) [Mass/Vol] 13.5 g/dL 13.0-16.5 [facility] Blood lymphocytes/100 leukoc ytesOrdered By: Renard Burgos on 10-31-2022 Lymphocytes/100 WBC (Bld) 20.5 % 19-41 [facility] Blood monocytes/100 leukocyt esOrdered By: Renard Burgos on 10-31-2022 Monocytes/100 WBC (Bld) 7.9 % 0-10 [facility] Blood platelet mean volumeOr dered By: Renard Burgos on 10-31-2022 Platelet mean volume (Bld) [Entitic vol] 11.1 fL 6.2-12.0 [facility] Determination of erythrocyte mean corpuscular volume (MCV)Ordered By: Renard Burgos on 10-31-2022 MCV (RBC) [Entitic vol] 92.4 fL 80-94 [facility] Hematocrit Auto (Bld) [Volum e fraction]Ordered By: Renard Burgos on 10-31-2022 Hematocrit (Bld) [Volume fraction] 41.3 % 40-54 [facility] - Hematology and Cell countsOrdered By: Renard Burgos on 10-31-2022 Erythrocyte distribution width (RBC) [Entitic vol] 42.9 fL 35.1-43.9 [facility] Erythrocyte distribution width (RBC) [Ratio] 12.7 % 11.6-14.6 [facility] Immature granulocytes/100 WBC (Bld) 0.600 % 0.0-0.9 [facility] Comment on above: IG% - Immature Granu locytes (promyelocytes, myelocytes and metamyelocytes) > 1% indicates that a LEFT SHIFT is Present. MCH (RBC) [Entitic mass] 30.2 pg 27.0-32.0 [facility] Nucleated RBC/100 WBC (Bld) [Ratio] 0 % 0-5 [facility] MCHC Auto (RBC) [Mass/Vol]Or dered By: Renard Burgos on 10-31-2022 MCHC (RBC) [Mass/Vol] 32.7 g/dL 32-36 [facility] Platelets bldOrdered By: Lyubov Burgos on 10-31-2022 Platelets (Bld) [#/Vol] 221 10*3/uL 150-450 [facility] Absolute lymphocyte countOrd ered By: Renard Burgos on 10-24-2022 Lymphocytes Auto (Unsp spec) [#/Vol] 1.96 10*3/uL 0.83-4.51 [facility] Basophil percentageOrdered B y: Renard Burgos on 10-24-2022 Basophils/100 WBC (Bld) 0.4 % 0-1 [facility] Eosinophils/100 WBC (Bld) 0.7 % 0-5 [facility] Neutrophils (Bld) [#/Vol] 4.5 10*3/uL 2.0-7.7 [facility] Neutrophils/100 WBC (Bld) 61.9 % 47-70 [facility] WBC (Bld) [#/Vol] 7.3 10*3/uL 4.4-11.0 [facility] Blood erythrocytes count (nu mber/volume)Ordered By: Renard Burgos on 10-24-2022 RBC (Bld) [#/Vol] 4.41 10*6/uL 4.6-6.2 [facility] Blood hemoglobin measurement (mass/volume)Ordered By: Renard Burgos on 10-24-2022 Hemoglobin (Bld) [Mass/Vol] 13.2 g/dL 13.0-16.5 [facility] Blood lymphocytes/100 leukoc ytesOrdered By: Renard Burgos on 10-24-2022 Lymphocytes/100 WBC (Bld) 27.0 % 19-41 [facility] Blood monocytes/100 leukocyt esOrdered By: Renard Burgos on 10-24-2022 Monocytes/100 WBC (Bld) 9.4 % 0-10 [facility] Blood platelet mean volumeOr dered By: Renard Burgos on 10-24-2022 Platelet mean volume (Bld) [Entitic vol] 10.9 fL 6.2-12.0 [facility] Determination of erythrocyte mean corpuscular volume (MCV)Ordered By: Renard Burgos on 10-24-2022 MCV (RBC) [Entitic vol] 92.1 fL 80-94 [facility] Hematocrit Auto (Bld) [Volum e fraction]Ordered By: Renard Burgos on 10-24-2022 Hematocrit (Bld) [Volume fraction] 40.6 % 40-54 [facility] - Hematology and Cell countsOrdered By: Renard Burgos on 10-24-2022 Erythrocyte distribution width (RBC) [Entitic vol] 42.8 fL 35.1-43.9 [facility] Erythrocyte distribution width (RBC) [Ratio] 12.8 % 11.6-14.6 [facility] Immature granulocytes/100 WBC (Bld) 0.600 % 0.0-0.9 [facility] Comment on above: IG% - Immature Granu locytes (promyelocytes, myelocytes and metamyelocytes) > 1% indicates that a LEFT SHIFT is Present. MCH (RBC) [Entitic mass] 29.9 pg 27.0-32.0 [facility] Nucleated RBC/100 WBC (Bld) [Ratio] 0 % 0-5 [facility] MCHC Auto (RBC) [Mass/Vol]Or dered By: Renard Burgos on 10-24-2022 MCHC (RBC) [Mass/Vol] 32.5 g/dL 32-36 [facility] Platelets bldOrdered By: Lyubov Burgos on 10-24-2022 Platelets (Bld) [#/Vol] 213 10*3/uL 150-450 [facility] Absolute lymphocyte countOrd ered By: Renard Burgos on 10-17-2022 Lymphocytes Auto (Unsp spec) [#/Vol] 2.05 10*3/uL 0.83-4.51 [facility] Basophil percentageOrdered B y: Renard Burgos on 10-17-2022 Basophils/100 WBC (Bld) 0.4 % 0-1 [facility] Eosinophils/100 WBC (Bld) 0.5 % 0-5 [facility] Neutrophils (Bld) [#/Vol] 6.7 10*3/uL 2.0-7.7 [facility] Neutrophils/100 WBC (Bld) 70.9 % 47-70 [facility] WBC (Bld) [#/Vol] 9.4 10*3/uL 4.4-11.0 [facility] Blood erythrocytes count (nu mber/volume)Ordered By: Renard Burgos on 10-17-2022 RBC (Bld) [#/Vol] 4.33 10*6/uL 4.6-6.2 [facility] Blood hemoglobin measurement (mass/volume)Ordered By: Renard Burgos on 10-17-2022 Hemoglobin (Bld) [Mass/Vol] 13.3 g/dL 13.0-16.5 [facility] Blood lymphocytes/100 leukoc ytesOrdered By: Renard Burgos on 10-17-2022 Lymphocytes/100 WBC (Bld) 21.7 % 19-41 [facility] Blood monocytes/100 leukocyt esOrdered By: Renard Burgos on 10-17-2022 Monocytes/100 WBC (Bld) 6.1 % 0-10 [facility] Blood platelet mean volumeOr dered By: Renard Burgos on 10-17-2022 Platelet mean volume (Bld) [Entitic vol] 10.9 fL 6.2-12.0 [facility] Determination of erythrocyte mean corpuscular volume (MCV)Ordered By: Renard Burgos on 10-17-2022 MCV (RBC) [Entitic vol] 93.8 fL 80-94 [facility] Hematocrit Auto (Bld) [Volum e fraction]Ordered By: Renard Burgos on 10-17-2022 Hematocrit (Bld) [Volume fraction] 40.6 % 40-54 [facility] - Hematology and Cell countsOrdered By: Renard Burgos on 10-17-2022 Erythrocyte distribution width (RBC) [Entitic vol] 42.7 fL 35.1-43.9 [facility] Erythrocyte distribution width (RBC) [Ratio] 12.4 % 11.6-14.6 [facility] Immature granulocytes/100 WBC (Bld) 0.400 % 0.0-0.9 [facility] Comment on above: IG% - Immature Granu locytes (promyelocytes, myelocytes and metamyelocytes) > 1% indicates that a LEFT SHIFT is Present. MCH (RBC) [Entitic mass] 30.7 pg 27.0-32.0 [facility] Nucleated RBC/100 WBC (Bld) [Ratio] 0 % 0-5 [facility] MCHC Auto (RBC) [Mass/Vol]Or dered By: Renard Burgos on 10-17-2022 MCHC (RBC) [Mass/Vol] 32.8 g/dL 32-36 [facility] Platelets bldOrdered By: Lyubov Burgos on 10-17-2022 Platelets (Bld) [#/Vol] 186 10*3/uL 150-450 [facility] Absolute lymphocyte countOrd ered By: Renard Burgos on 10-10-2022 Lymphocytes Auto (Unsp spec) [#/Vol] 2.21 10*3/uL 0.83-4.51 [facility] Basophil percentageOrdered B y: Renard Burgos on 10-10-2022 Basophils/100 WBC (Bld) 0.6 % 0-1 [facility] Eosinophils/100 WBC (Bld) 0.6 % 0-5 [facility] Neutrophils (Bld) [#/Vol] 4.7 10*3/uL 2.0-7.7 [facility] Neutrophils/100 WBC (Bld) 59.6 % 47-70 [facility] WBC (Bld) [#/Vol] 7.9 10*3/uL 4.4-11.0 [facility] Blood erythrocytes count (nu mber/volume)Ordered By: Renard Burgos on 10-10-2022 RBC (Bld) [#/Vol] 4.78 10*6/uL 4.6-6.2 [facility] Blood hemoglobin measurement (mass/volume)Ordered By: Renard Burgos on 10-10-2022 Hemoglobin (Bld) [Mass/Vol] 14.4 g/dL 13.0-16.5 [facility] Blood lymphocytes/100 leukoc ytesOrdered By: Renard Burgos on 10-10-2022 Lymphocytes/100 WBC (Bld) 28.0 % 19-41 [facility] Blood monocytes/100 leukocyt esOrdered By: Renard Burgos on 10-10-2022 Monocytes/100 WBC (Bld) 10.8 % 0-10 [facility] Blood platelet mean volumeOr dered By: Renard Burgos on 10-10-2022 Platelet mean volume (Bld) [Entitic vol] 10.7 fL 6.2-12.0 [facility] Determination of erythrocyte mean corpuscular volume (MCV)Ordered By: Renard Burgos on 10-10-2022 MCV (RBC) [Entitic vol] 94.8 fL 80-94 [facility] Hematocrit Auto (Bld) [Volum e fraction]Ordered By: Renard Burgos on 10-10-2022 Hematocrit (Bld) [Volume fraction] 45.3 % 40-54 [facility] - Hematology and Cell countsOrdered By: Renard Burgos on 10-10-2022 Erythrocyte distribution width (RBC) [Entitic vol] 43.8 fL 35.1-43.9 [facility] Erythrocyte distribution width (RBC) [Ratio] 12.6 % 11.6-14.6 [facility] Immature granulocytes/100 WBC (Bld) 0.400 % 0.0-0.9 [facility] Comment on above: IG% - Immature Granu locytes (promyelocytes, myelocytes and metamyelocytes) > 1% indicates that a LEFT SHIFT is Present. MCH (RBC) [Entitic mass] 30.1 pg 27.0-32.0 [facility] Nucleated RBC/100 WBC (Bld) [Ratio] 0 % 0-5 [facility] MCHC Auto (RBC) [Mass/Vol]Or dered By: Renard Burgos on 10-10-2022 MCHC (RBC) [Mass/Vol] 31.8 g/dL 32-36 [facility] Platelets bldOrdered By: Lyubov Burgos on 10-10-2022 Platelets (Bld) [#/Vol] 198 10*3/uL 150-450 [facility] Absolute lymphocyte countOrd ered By: Renard Burgos on 10-03-2022 Lymphocytes Auto (Unsp spec) [#/Vol] 2.00 10*3/uL 0.83-4.51 [facility] Basophil percentageOrdered B y: Renard Burgos on 10-03-2022 Basophils/100 WBC (Bld) 0.6 % 0-1 [facility] Bilirubin [Mass/Vol] 0.30 mg/dL 0.20-1.00 [facility] Comment on above: For patients on eltr ombopag therapy, use of Dimension Harm[employer] TBIL is not recommended. Chloride [Moles/Vol] 109 mmol/L 98-107 [facility] Cholesterol [Mass/Vol] 129 mg/dL <200 [facility] Comment on above: <200 mg/dL Desirable 200-240 mg/dL Borderline >240 mg/dL High Risk Eosinophils/100 WBC (Bld) 0.8 % 0-5 [facility] Glucose [Mass/Vol] 82 mg/dL 74-106 [facility] Neutrophils (Bld) [#/Vol] 5.1 10*3/uL 2.0-7.7 [facility] Neutrophils/100 WBC (Bld) 63.2 % 47-70 [facility] Potassium [Moles/Vol] 3.9 mmol/L 3.5-5.1 [facility] Protein [Mass/Vol] 6.1 g/dL 6.4-8.2 [facility] Sodium [Moles/Vol] 140 mmol/L 136-145 [facility] Triglyceride [Mass/Vol] 209 mg/dL <199 [facility] Comment on above: The drugs N-Acetylcy steine and Metamizole may falsely depress this assay.Serum Triglycerides Reference Interval Normal <150 mg/dL Borderline high 150 - 199 mg/dL High 200 - 499 mg/dL Very High > or = 500 mg/dL WBC (Bld) [#/Vol] 8.0 10*3/uL 4.4-11.0 [facility] Blood erythrocytes count (nu mber/volume)Ordered By: Renard Burgos on 10-03-2022 RBC (Bld) [#/Vol] 4.58 10*6/uL 4.6-6.2 [facility] Blood hemoglobin measurement (mass/volume)Ordered By: Renard Burgos on 10-03-2022 Hemoglobin (Bld) [Mass/Vol] 13.9 g/dL 13.0-16.5 [facility] Blood lymphocytes/100 leukoc ytesOrdered By: Renard Burgos on 10-03-2022 Lymphocytes/100 WBC (Bld) 25.1 % 19-41 [facility] Blood monocytes/100 leukocyt esOrdered By: Renard Burgos on 10-03-2022 Monocytes/100 WBC (Bld) 10.0 % 0-10 [facility] Blood platelet mean volumeOr dered By: Renard Burgos on 10-03-2022 Platelet mean volume (Bld) [Entitic vol] 11.1 fL 6.2-12.0 [facility] Determination of erythrocyte mean corpuscular volume (MCV)Ordered By: Renard Burgos on 10-03-2022 MCV (RBC) [Entitic vol] 93.9 fL 80-94 [facility] Hematocrit Auto (Bld) [Volum e fraction]Ordered By: Renard Burgos on 10-03-2022 Hematocrit (Bld) [Volume fraction] 43.0 % 40-54 [facility] - Chemistry and C hemistry - challengeOrdered By: Renard Burgos on 10-03-2022 ALP [Catalytic activity/Vol] 98 U/L 45-117 [facility] ALT [Catalytic activity/Vol] 19 U/L 16-61 [facility] CO2 [Moles/Vol] 31.0 mmol/L 21.0-32.0 [facility] Globulin (S) [Mass/Vol] 3.1 g/dL 2.2-4.2 [facility] Urea nitrogen/Creatinine [Mass ratio] 25.6 mg/mg 10-20 [facility] - Hematology and Cell countsOrdered By: Renard Burgos on 10-03-2022 Erythrocyte distribution width (RBC) [Entitic vol] 43.8 fL 35.1-43.9 [facility] Erythrocyte distribution width (RBC) [Ratio] 12.7 % 11.6-14.6 [facility] Immature granulocytes/100 WBC (Bld) 0.300 % 0.0-0.9 [facility] Comment on above: IG% - Immature Granu locytes (promyelocytes, myelocytes and metamyelocytes) > 1% indicates that a LEFT SHIFT is Present. MCH (RBC) [Entitic mass] 30.3 pg 27.0-32.0 [facility] Nucleated RBC/100 [facility] (Bld) [[facility]] 0 % [facility] [Mass/Vol]Or dered By: Renard Burgos on 10-03-2022 MCHC (RBC) [Mass/Vol] 32.3 g/dL 32-36 [facility] No Panel InformationOrdered By: Renard Burgos on 10-03-2022 Estimated GFR (MDRD) Amer 165 mL/min >60 [facility] Comment on above: GFR Calc Estimated GFR (MDRD) Non-Af Amer 137 mL/min >60 [facility] Comment on above: Non- GFR Calc Platelets bldOrdered By: Pet lizy Burgos on 10-03-2022 Platelets (Bld) [#/Vol] 204 10*3/uL 150-450 [facility] Serum or plasma albumin gordy urement (mass/volume)Ordered By: Renard Burgos on 10-03-2022 Albumin [Mass/Vol] 3.0 g/dL 3.2-5.0 [facility] Serum or plasma albumin/glob ulin mass ratioOrdered By: Renard Burgos on 10-03-2022 Albumin/Globulin [Mass ratio] 1.0 {ratio} 0.9-2.4 [facility] Serum or plasma calcium gordy urement (mass/volume)Ordered By: Renard Burgos on 10-03-2022 Calcium [Mass/Vol] 8.4 mg/dL 8.5-10.1 [facility] Serum or plasma cholesterol in HDL measurement (mass/volume)Ordered By: Renard Burgos on 10-03-2022 Cholesterol in HDL [Mass/Vol] 29 mg/dL >40 [facility] Comment on above: The drugs N-Acetylcy steine and Metamizole may falsely depress this assay. Reference Range HDL <40 mg/dL Low HDL Cholesterol HDL >or= 60 mg/dL High HDL Cholesterol Serum or plasma cholesterol in VLDL measurement (mass/volume)Ordered By: Renard Burgos on 10-03-2022 Cholesterol in VLDL [Mass/Vol] 42 mg/dL 5-40 [facility] Serum or plasma creatinine m easurement (mass/volume)Ordered By: Renard Burgos on 10-03-2022 Creatinine [Mass/Vol] 0.63 mg/dL 0.70-1.30 [facility] Comment on above: The validity of the calculated GFR & GFRAA in patients over 70 years has not been determined. Clinical correlation is essential. Serum or plasma low density lipoprotein (LDL) cholesterol measurement (mass/volume)Ordered By: Renard Burgos on 10-03-2022 Cholesterol in LDL [Mass/Vol] 58 mg/dL 0-130 [facility] Serum or plasma urea nitroge n measurement (mass/volume)Ordered By: Renard Burgos on 10-03-2022 Urea nitrogen [Mass/Vol] 16 mg/dL 7-18 [facility] Thin prep Papanicolaou smear with manual screeningOrdered By: Renard Burgos on 10-03-2022 Thin prep Papanicolaou smear with manual screening 13 U/L 15-37 [facility] Thin prep Papanicolaou smear with manual screening 0 5-15 [facility] Absolute lymphocyte countOrd ered By: Renard Burgos on 09-19-2022 Lymphocytes Auto (Unsp spec) [#/Vol] 1.59 10*3/uL 0.83-4.51 [facility] Basophil percentageOrdered B y: Renard Burgos on 09-19-2022 Basophils/100 WBC (Bld) 0.5 % 0-1 [facility] Eosinophils/100 WBC (Bld) 0.3 % 0-5 [facility] Neutrophils (Bld) [#/Vol] 7.4 10*3/uL 2.0-7.7 [facility] Neutrophils/100 WBC (Bld) 75.0 % 47-70 [facility] WBC (Bld) [#/Vol] 9.9 10*3/uL 4.4-11.0 [facility] Blood erythrocytes count (nu mber/volume)Ordered By: Renard Burgos on 09-19-2022 RBC (Bld) [#/Vol] 4.46 10*6/uL 4.6-6.2 [facility] Blood hemoglobin measurement (mass/volume)Ordered By: Renard Burgos on 09-19-2022 Hemoglobin (Bld) [Mass/Vol] 13.5 g/dL 13.0-16.5 [facility] Blood lymphocytes/100 leukoc ytesOrdered By: Renard Burgos on 09-19-2022 Lymphocytes/100 WBC (Bld) 16.1 % 19-41 [facility] Blood monocytes/100 leukocyt esOrdered By: Renard Burgos on 09-19-2022 Monocytes/100 WBC (Bld) 7.6 % 0-10 [facility] Blood platelet mean volumeOr dered By: Renard Burgos on 09-19-2022 Platelet mean volume (Bld) [Entitic vol] 10.8 fL 6.2-12.0 [facility] Determination of erythrocyte mean corpuscular volume (MCV)Ordered By: Renard Burgos on 09-19-2022 MCV (RBC) [Entitic vol] 92.2 fL 80-94 [facility] Hematocrit Auto (Bld) [Volum e fraction]Ordered By: Renard Burgos on 09-19-2022 Hematocrit (Bld) [Volume fraction] 41.1 % 40-54 [facility] - Hematology and Cell countsOrdered By: Renard Burgos on 09-19-2022 Erythrocyte distribution width (RBC) [Entitic vol] 41.2 fL 35.1-43.9 [facility] Erythrocyte distribution width (RBC) [Ratio] 12.3 % 11.6-14.6 [facility] Immature granulocytes/100 WBC (Bld) 0.500 % 0.0-0.9 [facility] Comment on above: IG% - Immature Granu locytes (promyelocytes, myelocytes and metamyelocytes) > 1% indicates that a LEFT SHIFT is Present. MCH (RBC) [Entitic mass] 30.3 pg 27.0-32.0 [facility] Nucleated RBC/100 WBC (Bld) [Ratio] 0 % 0-5 [facility] MCHC Auto (RBC) [Mass/Vol]Or dered By: Renard Burgos on 09-19-2022 MCHC (RBC) [Mass/Vol] 32.8 g/dL 32-36 [facility] Platelets bldOrdered By: Lyubov Burgos on 09-19-2022 Platelets (Bld) [#/Vol] 245 10*3/uL 150-450 [facility] Absolute lymphocyte countOrd ered By: Renard Burgos on 09-12-2022 Lymphocytes Auto (Unsp spec) [#/Vol] 2.11 10*3/uL 0.83-4.51 [facility] Basophil percentageOrdered B y: Renard Burgos on 09-12-2022 Basophils/100 WBC (Bld) 0.5 % 0-1 [facility] Eosinophils/100 WBC (Bld) 0.7 % 0-5 [facility] Neutrophils (Bld) [#/Vol] 4.7 10*3/uL 2.0-7.7 [facility] Neutrophils/100 WBC (Bld) 63.6 % 47-70 [facility] WBC (Bld) [#/Vol] 7.3 10*3/uL 4.4-11.0 [facility] Blood erythrocytes count (nu mber/volume)Ordered By: Renard Burgos on 09-12-2022 RBC (Bld) [#/Vol] 4.40 10*6/uL 4.6-6.2 [facility] Blood hemoglobin measurement (mass/volume)Ordered By: Renard Burgos on 09-12-2022 Hemoglobin (Bld) [Mass/Vol] 13.5 g/dL 13.0-16.5 [facility] Blood lymphocytes/100 leukoc ytesOrdered By: Renard Burgos on 09-12-2022 Lymphocytes/100 WBC (Bld) 28.8 % 19-41 [facility] Blood monocytes/100 leukocyt esOrdered By: Renard Burgos on 09-12-2022 Monocytes/100 WBC (Bld) 6.1 % 0-10 [facility] Blood platelet mean volumeOr dered By: Renard Burgos on 09-12-2022 Platelet mean volume (Bld) [Entitic vol] 10.7 fL 6.2-12.0 [facility] Determination of erythrocyte mean corpuscular volume (MCV)Ordered By: Renard Burgos on 09-12-2022 MCV (RBC) [Entitic vol] 91.4 fL 80-94 [facility] Hematocrit Auto (Bld) [Volum e fraction]Ordered By: Renard Burgos on 09-12-2022 Hematocrit (Bld) [Volume fraction] 40.2 % 40-54 [facility] - Hematology and Cell countsOrdered By: Renard Burgos on 09-12-2022 Erythrocyte distribution width (RBC) [Entitic vol] 41.3 fL 35.1-43.9 [facility] Erythrocyte distribution width (RBC) [Ratio] 12.5 % 11.6-14.6 [facility] Immature granulocytes/100 WBC (Bld) 0.300 % 0.0-0.9 [facility] Comment on above: IG% - Immature Granu locytes (promyelocytes, myelocytes and metamyelocytes) > 1% indicates that a LEFT SHIFT is Present. MCH (RBC) [Entitic mass] 30.7 pg 27.0-32.0 [facility] Nucleated RBC/100 WBC (Bld) [Ratio] 0 % 0-5 [facility] MCHC Auto (RBC) [Mass/Vol]Or dered By: Renard Burgos on 09-12-2022 MCHC (RBC) [Mass/Vol] 33.6 g/dL 32-36 [facility] Platelets bldOrdered By: Lyubov Burgos on 09-12-2022 Platelets (Bld) [#/Vol] 197 10*3/uL 150-450 [facility] Absolute lymphocyte countOrd ered By: Renard Burgos on 09-05-2022 Lymphocytes Auto (Unsp spec) [#/Vol] 1.94 10*3/uL 0.83-4.51 [facility] Basophil percentageOrdered B y: Renard Burgos on 09-05-2022 Basophils/100 WBC (Bld) 0.5 % 0-1 [facility] Cholesterol [Mass/Vol] 136 mg/dL <[address] [facility] Comment on above: <200 mg/dL Desirable 200-240 mg/dL Borderline >240 mg/dL High Risk Eosinophils/100 WBC (Bld) 0.4 % 0-5 [facility] Neutrophils (Bld) [#/Vol] 5.4 10*3/uL 2.0-7.7 [facility] Neutrophils/100 WBC (Bld) 67.5 % 47-70 [facility] Triglyceride [Mass/Vol] 304 mg/dL <199 [facility] Comment on above: The drugs N-Acetylcy steine and Metamizole may falsely depress this assay.Serum Triglycerides Reference Interval Normal <150 mg/dL Borderline high 150 - 199 mg/dL High 200 - 499 mg/dL Very High > or = 500 mg/dL WBC (Bld) [#/Vol] 7.9 10*3/uL 4.4-11.0 [facility] Blood erythrocytes count (nu mber/volume)Ordered By: Renard Burgos on 09-05-2022 RBC (Bld) [#/Vol] 4.28 10*6/uL 4.6-6.2 [facility] Blood hemoglobin measurement (mass/volume)Ordered By: Renard Burgos on 09-05-2022 Hemoglobin (Bld) [Mass/Vol] 12.9 g/dL 13.0-16.5 [facility] Blood lymphocytes/100 leukoc ytesOrdered By: Renard Burgos on 09-05-2022 Lymphocytes/100 WBC (Bld) 24.5 % 19-41 [facility] Blood monocytes/100 leukocyt esOrdered By: Renard Burgos on 09-05-2022 Monocytes/100 WBC (Bld) 6.6 % 0-10 [facility] Blood platelet mean volumeOr dered By: Renard Burgos on 09-05-2022 Platelet mean volume (Bld) [Entitic vol] 10.7 fL 6.2-12.0 [facility] Determination of erythrocyte mean corpuscular volume (MCV)Ordered By: Renard Burgos on 09-05-2022 MCV (RBC) [Entitic vol] 91.4 fL 80-94 [facility] Hematocrit Auto (Bld) [Volum e fraction]Ordered By: Renard Burgos on 09-05-2022 Hematocrit (Bld) [Volume fraction] 39.1 % 40-54 [facility] - Hematology and Cell countsOrdered By: Renard Burgos on 09-05-2022 Erythrocyte distribution width (RBC) [Entitic vol] 41.5 fL 35.1-43.9 [facility] Erythrocyte distribution width (RBC) [Ratio] 12.6 % 11.6-14.6 [facility] Immature granulocytes/100 WBC (Bld) 0.500 % 0.0-0.9 [facility] Comment on above: IG% - Immature Granu locytes (promyelocytes, myelocytes and metamyelocytes) > 1% indicates that a LEFT SHIFT is Present. MCH (RBC) [Entitic mass] 30.1 pg 27.0-32.0 [facility] Nucleated RBC/100 WBC (Bld) [Ratio] 0 % 0-5 [facility] MCHC Auto (RBC) [Mass/Vol]Or dered By: Renard Burgos on 09-05-2022 MCHC (RBC) [Mass/Vol] 33.0 g/dL 32-36 [facility] Platelets bldOrdered By: Lyubov Burgos on 09-05-2022 Platelets (Bld) [#/Vol] 200 10*3/uL 150-450 [facility] Serum or plasma cholesterol in HDL measurement (mass/volume)Ordered By: Renard Burgos on 09-05-2022 Cholesterol in HDL [Mass/Vol] 24 mg/dL >40 [facility] Comment on above: The drugs N-Acetylcy steine and Metamizole may falsely depress this assay. Reference Range HDL <40 mg/dL Low HDL Cholesterol HDL >or= 60 mg/dL High HDL Cholesterol Serum or plasma cholesterol in VLDL measurement (mass/volume)Ordered By: Renard Burgos on 09-05-2022 Cholesterol in VLDL [Mass/Vol] 61 mg/dL 5-40 [facility] Serum or plasma low density lipoprotein (LDL) cholesterol measurement (mass/volume)Ordered By: Renard Burgos on 09-05-2022 Cholesterol in LDL [Mass/Vol] 51 mg/dL 0-130 [facility] Absolute lymphocyte countOrd ered By: Renard Burgos on 08-29-2022 Lymphocytes Auto (Unsp spec) [#/Vol] 1.91 10*3/uL 0.83-4.51 [facility] Basophil percentageOrdered B y: Renard Burgos on 08-29-2022 Basophils/100 WBC (Bld) 0.4 % 0-1 [facility] Eosinophils/100 WBC (Bld) 0.4 % 0-5 [facility] Neutrophils (Bld) [#/Vol] 4.8 10*3/uL 2.0-7.7 [facility] Neutrophils/100 WBC (Bld) 66.0 % 47-70 [facility] WBC (Bld) [#/Vol] 7.3 10*3/uL 4.4-11.0 [facility] Blood erythrocytes count (nu mber/volume)Ordered By: Renard Burgos on 08-29-2022 RBC (Bld) [#/Vol] 4.43 10*6/uL 4.6-6.2 [facility] Blood hemoglobin measurement (mass/volume)Ordered By: Renard Burgos on 08-29-2022 Hemoglobin (Bld) [Mass/Vol] 13.6 g/dL 13.0-16.5 [facility] Blood lymphocytes/100 leukoc ytesOrdered By: Renard Burgos on 08-29-2022 Lymphocytes/100 WBC (Bld) 26.2 % 19-41 [facility] Blood monocytes/100 leukocyt esOrdered By: Renard Burgos on 08-29-2022 Monocytes/100 WBC (Bld) 6.6 % 0-10 [facility] Blood platelet mean volumeOr dered By: Renard Burgos on 08-29-2022 Platelet mean volume (Bld) [Entitic vol] 11.0 fL 6.2-12.0 [facility] Determination of erythrocyte mean corpuscular volume (MCV)Ordered By: Renard Burgos on 08-29-2022 MCV (RBC) [Entitic vol] 92.1 fL 80-94 [facility] Hematocrit Auto (Bld) [Volum e fraction]Ordered By: Renard Burgos on 08-29-2022 Hematocrit (Bld) [Volume fraction] 40.8 % 40-54 [facility] - Hematology and Cell countsOrdered By: Reanrd Burgos on 08-29-2022 Erythrocyte distribution width (RBC) [Entitic vol] 42.0 fL 35.1-43.9 [facility] Erythrocyte distribution width (RBC) [Ratio] 12.4 % 11.6-14.6 [facility] Immature granulocytes/100 WBC (Bld) 0.400 % 0.0-0.9 [facility] Comment on above: IG% - Immature Granu locytes (promyelocytes, myelocytes and metamyelocytes) > 1% indicates that a LEFT SHIFT is Present. MCH (RBC) [Entitic mass] 30.7 pg 27.0-32.0 [facility] Nucleated RBC/100 WBC (Bld) [Ratio] 0 % 0-5 [facility] MCHC Auto (RBC) [Mass/Vol]Or dered By: Renard Burgos on 08-29-2022 MCHC (RBC) [Mass/Vol] 33.3 g/dL 32-36 [facility] Platelets bldOrdered By: Lyubov Burgos on 08-29-2022 Platelets (Bld) [#/Vol] 195 10*3/uL 150-450 [facility] Absolute lymphocyte countOrd ered By: Renard Burgos on 08-22-2022 Lymphocytes Auto (Unsp spec) [#/Vol] 1.86 10*3/uL 0.83-4.51 [facility] Basophil percentageOrdered B y: Renard Burgos on 08-22-2022 Basophils/100 WBC (Bld) 0.4 % 0-1 [facility] Eosinophils/100 WBC (Bld) 0.4 % 0-5 [facility] Neutrophils (Bld) [#/Vol] 6.5 10*3/uL 2.0-7.7 [facility] Neutrophils/100 WBC (Bld) 70.5 % 47-70 [facility] WBC (Bld) [#/Vol] 9.3 10*3/uL 4.4-11.0 [facility] Blood erythrocytes count (nu mber/volume)Ordered By: Renard Burgos on 08-22-2022 RBC (Bld) [#/Vol] 4.55 10*6/uL 4.6-6.2 [facility] Blood hemoglobin measurement (mass/volume)Ordered By: Renard Burgos on 08-22-2022 Hemoglobin (Bld) [Mass/Vol] 14.1 g/dL 13.0-16.5 [facility] Blood lymphocytes/100 leukoc ytesOrdered By: Renard Burgos on 08-22-2022 Lymphocytes/100 WBC (Bld) 20.1 % 19-41 [facility] Blood monocytes/100 leukocyt esOrdered By: Renard Burgos on 08-22-2022 Monocytes/100 WBC (Bld) 8.3 % 0-10 [facility] Blood platelet mean volumeOr dered By: Renard Burgos on 08-22-2022 Platelet mean volume (Bld) [Entitic vol] 10.8 fL 6.2-12.0 [facility] Determination of erythrocyte mean corpuscular volume (MCV)Ordered By: Renard Burgos on 08-22-2022 MCV (RBC) [Entitic vol] 91.9 fL 80-94 [facility] Hematocrit Auto (Bld) [Volum e fraction]Ordered By: Renard Burgos on 08-22-2022 Hematocrit (Bld) [Volume fraction] 41.8 % 40-54 [facility] - Hematology and Cell countsOrdered By: Renard Burgos on 08-22-2022 Erythrocyte distribution width (RBC) [Entitic vol] 42.5 fL 35.1-43.9 [facility] Erythrocyte distribution width (RBC) [Ratio] 12.6 % 11.6-14.6 [facility] Immature granulocytes/100 WBC (Bld) 0.300 % 0.0-0.9 [facility] Comment on above: IG% - Immature Granu locytes (promyelocytes, myelocytes and metamyelocytes) > 1% indicates that a LEFT SHIFT is Present. MCH (RBC) [Entitic mass] 31.0 pg 27.0-32.0 [facility] Nucleated RBC/100 WBC (Bld) [Ratio] 0 % 0-5 [facility] MCHC Auto (RBC) [Mass/Vol]Or dered By: Renard Burgos on 08-22-2022 MCHC (RBC) [Mass/Vol] 33.7 g/dL 32-36 [facility] Platelets bldOrdered By: Lyubov Burgos on 08-22-2022 Platelets (Bld) [#/Vol] 197 10*3/uL 150-450 [facility] Absolute lymphocyte countOrd ered By: Renard Burgos on 08-15-2022 Lymphocytes Auto (Unsp spec) [#/Vol] 1.88 10*3/uL 0.83-4.51 [facility] Basophil percentageOrdered B y: Renard Burgos on 08-15-2022 Basophils/100 WBC (Bld) 0.5 % 0-1 [facility] Eosinophils/100 WBC (Bld) 0.5 % 0-5 [facility] Neutrophils (Bld) [#/Vol] 5.1 10*3/uL 2.0-7.7 [facility] Neutrophils/100 WBC (Bld) 65.0 % 47-70 [facility] WBC (Bld) [#/Vol] 7.9 10*3/uL 4.4-11.0 [facility] Blood erythrocytes count (nu mber/volume)Ordered By: Renard Burgos on 08-15-2022 RBC (Bld) [#/Vol] 4.48 10*6/uL 4.6-6.2 [facility] Blood hemoglobin measurement (mass/volume)Ordered By: Renard Burgos on 08-15-2022 Hemoglobin (Bld) [Mass/Vol] 13.7 g/dL 13.0-16.5 [facility] Blood lymphocytes/100 leukoc ytesOrdered By: Renard Burgos on 08-15-2022 Lymphocytes/100 WBC (Bld) 23.9 % 19-41 [facility] Blood monocytes/100 leukocyt esOrdered By: Renard Burgos on 08-15-2022 Monocytes/100 WBC (Bld) 9.8 % 0-10 [facility] Blood platelet mean volumeOr dered By: Renard Burgos on 08-15-2022 Platelet mean volume (Bld) [Entitic vol] 10.7 fL 6.2-12.0 [facility] Determination of erythrocyte mean corpuscular volume (MCV)Ordered By: Renard Burgos on 08-15-2022 MCV (RBC) [Entitic vol] 91.1 fL 80-94 [facility] Hematocrit Auto (Bld) [Volum e fraction]Ordered By: Renard Burgos on 08-15-2022 Hematocrit (Bld) [Volume fraction] 40.8 % 40-54 [facility] - Hematology and Cell countsOrdered By: Renard Burgos on 08-15-2022 Erythrocyte distribution width (RBC) [Entitic vol] 41.0 fL 35.1-43.9 [facility] Erythrocyte distribution width (RBC) [Ratio] 12.4 % 11.6-14.6 [facility] Immature granulocytes/100 WBC (Bld) 0.300 % 0.0-0.9 [facility] Comment on above: IG% - Immature Granu locytes (promyelocytes, myelocytes and metamyelocytes) > 1% indicates that a LEFT SHIFT is Present. MCH (RBC) [Entitic mass] 30.6 pg 27.0-32.0 [facility] Nucleated RBC/100 WBC (Bld) [Ratio] 0 % 0-5 [facility] MCHC Auto (RBC) [Mass/Vol]Or dered By: Renard Burgos on 08-15-2022 MCHC (RBC) [Mass/Vol] 33.6 g/dL 32-36 [facility] Platelets bldOrdered By: [facility] on 08-15-2022 Platelets (Bld) [#/Vol] 212 10*3/uL 150-450 [facility] Absolute lymphocyte countOrd ered By: Renard Burgos on 08-08-2022 Lymphocytes Auto (Unsp spec) [#/Vol] 1.96 10*3/uL 0.83-4.51 [facility] Basophil percentageOrdered B y: Renard Burgos on 08-08-2022 Basophils/100 WBC (Bld) 0.5 % 0-1 [facility] Eosinophils/100 WBC (Bld) 0.5 % 0-5 [facility] Neutrophils (Bld) [#/Vol] 4.7 10*3/uL 2.0-7.7 [facility] Neutrophils/100 WBC (Bld) 64.1 % 47-70 [facility] WBC (Bld) [#/Vol] 7.4 10*3/uL 4.4-11.0 [facility] Blood erythrocytes count (nu mber/volume)Ordered By: Renard Burgos on 08-08-2022 RBC (Bld) [#/Vol] 4.44 10*6/uL 4.6-6.2 [facility] Blood hemoglobin measurement (mass/volume)Ordered By: Renard Burgos on 08-08-2022 Hemoglobin (Bld) [Mass/Vol] 13.6 g/dL 13.0-16.5 [facility] Blood lymphocytes/100 leukoc ytesOrdered By: Renard Burgos on 08-08-2022 Lymphocytes/100 WBC (Bld) 26.5 % 19-41 [facility] Blood monocytes/100 leukocyt esOrdered By: Renard Burgos on 08-08-2022 Monocytes/100 WBC (Bld) 8.1 % 0-10 [facility] Blood platelet mean volumeOr dered By: Renard Burgos on 08-08-2022 Platelet mean volume (Bld) [Entitic vol] 10.8 fL 6.2-12.0 [facility] Determination of erythrocyte mean corpuscular volume (MCV)Ordered By: Renard Burgos on 08-08-2022 MCV (RBC) [Entitic vol] 91.7 fL 80-94 [facility] Hematocrit Auto (Bld) [Volum e fraction]Ordered By: Renard uBrgos on 08-08-2022 Hematocrit (Bld) [Volume fraction] 40.7 % 40-54 [facility] - Hematology and Cell countsOrdered By: Renard Burgos on 08-08-2022 Erythrocyte distribution width (RBC) [Entitic vol] 42.7 fL 35.1-43.9 [facility] Erythrocyte distribution width (RBC) [Ratio] 12.6 % 11.6-14.6 [facility] Immature granulocytes/100 WBC (Bld) 0.300 % 0.0-0.9 [facility] Comment on above: IG% - Immature Granu locytes (promyelocytes, myelocytes and metamyelocytes) > 1% indicates that a LEFT SHIFT is Present. MCH (RBC) [Entitic mass] 30.6 pg 27.0-32.0 [facility] Nucleated RBC/100 WBC (Bld) [Ratio] 0 % 0-5 [facility] MCHC Auto (RBC) [Mass/Vol]Or dered By: Renard Burgos on 08-08-2022 MCHC (RBC) [Mass/Vol] 33.4 g/dL 32-36 [facility] Platelets bldOrdered By: Lyubov Burgos on 08-08-2022 Platelets (Bld) [#/Vol] 187 10*3/uL 150-450 [facility] Absolute lymphocyte countOrd ered By: Renard Burgos on 08-01-2022 Lymphocytes Auto (Unsp spec) [#/Vol] 2.09 10*3/uL 0.83-4.51 [facility] Basophil percentageOrdered B y: Renard Burgos on 08-01-2022 Basophils/100 WBC (Bld) 0.4 % 0-1 [facility] Eosinophils/100 WBC (Bld) 0.4 % 0-5 [facility] Neutrophils (Bld) [#/Vol] 6.6 10*3/uL 2.0-7.7 [facility] Neutrophils/100 WBC (Bld) 69.1 % 47-70 [facility] WBC (Bld) [#/Vol] 9.5 10*3/uL 4.4-11.0 [facility] Blood erythrocytes count (nu mber/volume)Ordered By: Renard Burgos on 08-01-2022 RBC (Bld) [#/Vol] 4.48 10*6/uL 4.6-6.2 [facility] Blood hemoglobin measurement (mass/volume)Ordered By: Renard Burgos on 08-01-2022 Hemoglobin (Bld) [Mass/Vol] 13.9 g/dL 13.0-16.5 [facility] Blood lymphocytes/100 leukoc ytesOrdered By: Renard Burgos on 08-01-2022 Lymphocytes/100 WBC (Bld) 21.9 % 19-41 [facility] Blood monocytes/100 leukocyt esOrdered By: Renard Burgos on 08-01-2022 Monocytes/100 WBC (Bld) 7.9 % 0-10 [facility] Blood platelet mean volumeOr dered By: Renard Burgos on 08-01-2022 Platelet mean volume (Bld) [Entitic vol] 11.0 fL 6.2-12.0 [facility] Determination of erythrocyte mean corpuscular volume (MCV)Ordered By: Renard Burgos on 08-01-2022 MCV (RBC) [Entitic vol] 91.5 fL 80-94 [facility] Hematocrit Auto (Bld) [Volum e fraction]Ordered By: Renard Burgos on 08-01-2022 Hematocrit (Bld) [Volume fraction] 41.0 % 40-54 [facility] - Hematology and Cell countsOrdered By: Renard Burgos on 08-01-2022 Erythrocyte distribution width (RBC) [Entitic vol] 41.6 fL 35.1-43.9 [facility] Erythrocyte distribution width (RBC) [Ratio] 12.5 % 11.6-14.6 [facility] Immature granulocytes/100 WBC (Bld) 0.300 % 0.0-0.9 [facility] Comment on above: IG% - Immature Granu locytes (promyelocytes, myelocytes and metamyelocytes) > 1% indicates that a LEFT SHIFT is Present. MCH (RBC) [Entitic mass] 31.0 pg 27.0-32.0 [facility] Nucleated RBC/100 WBC (Bld) [Ratio] 0 % 0-5 [facility] MCHC Auto (RBC) [Mass/Vol]Or dered By: Renard Burgos on 08-01-2022 MCHC (RBC) [Mass/Vol] 33.9 g/dL 32-36 [facility] Platelets bldOrdered By: Lyubov Burgos on 08-01-2022 Platelets (Bld) [#/Vol] 208 10*3/uL 150-450 [facility] Absolute lymphocyte countOrd ered By: Renard Burgos on 07-25-2022 Lymphocytes Auto (Unsp spec) [#/Vol] 2.16 10*3/uL 0.83-4.51 [facility] Basophil percentageOrdered B y: Renard Burgos on 07-25-2022 Basophils/100 WBC (Bld) 0.6 % 0-1 [facility] Eosinophils/100 WBC (Bld) 0.6 % 0-5 [facility] Neutrophils (Bld) [#/Vol] 5.4 10*3/uL 2.0-7.7 [facility] Neutrophils/100 WBC (Bld) 64.5 % 47-70 [facility] WBC (Bld) [#/Vol] 8.4 10*3/uL 4.4-11.0 [facility] Blood erythrocytes count (nu mber/volume)Ordered By: Renard Burgos on 07-25-2022 RBC (Bld) [#/Vol] 4.45 10*6/uL 4.6-6.2 [facility] Blood hemoglobin measurement (mass/volume)Ordered By: Renard Burgos on 07-25-2022 Hemoglobin (Bld) [Mass/Vol] 13.4 g/dL 13.0-16.5 [facility] Blood lymphocytes/100 leukoc ytesOrdered By: Renard Burgos on 07-25-2022 Lymphocytes/100 WBC (Bld) 25.7 % 19-41 [facility] Blood monocytes/100 leukocyt esOrdered By: Renard Burgos on 07-25-2022 Monocytes/100 WBC (Bld) 8.4 % 0-10 [facility] Blood platelet mean volumeOr dered By: Renard Burgos on 07-25-2022 Platelet mean volume (Bld) [Entitic vol] 11.0 fL 6.2-12.0 [facility] Determination of erythrocyte mean corpuscular volume (MCV)Ordered By: Renard Burgos on 07-25-2022 MCV (RBC) [Entitic vol] 92.8 fL 80-94 [facility] Hematocrit Auto (Bld) [Volum e fraction]Ordered By: Renard Burgos on 07-25-2022 Hematocrit (Bld) [Volume fraction] 41.3 % 40-54 [facility] - Hematology and Cell countsOrdered By: Renard Burgos on 07-25-2022 Erythrocyte distribution width (RBC) [Entitic vol] 42.5 fL 35.1-43.9 [facility] Erythrocyte distribution width (RBC) [Ratio] 12.5 % 11.6-14.6 [facility] Immature granulocytes/100 WBC (Bld) 0.200 % 0.0-0.9 [facility] Comment on above: IG% - Immature Granu locytes (promyelocytes, myelocytes and metamyelocytes) > 1% indicates that a LEFT SHIFT is Present. MCH (RBC) [Entitic mass] 30.1 pg 27.0-32.0 [facility] Nucleated RBC/100 WBC (Bld) [Ratio] 0 % 0-5 [facility] MCHC Auto (RBC) [Mass/Vol]Or dered By: Renard Burgos on 07-25-2022 MCHC (RBC) [Mass/Vol] 32.4 g/dL 32-36 [facility] Platelets bldOrdered By: Lyubov Burgos on 07-25-2022 Platelets (Bld) [#/Vol] 200 10*3/uL 150-450 [facility] No Panel InformationOrdered By: Renard Burgos on 07-19-2022 Vitamin D 25-Hydroxy 34.2 ng/mL [facility] Comment on above: Vitamin D 25(OH) Sta tus Range Deficiency <20 ng/mL (50nmol/L) Insufficiency 20 - 30 ng/mL (50 - 75 nmol/L) Sufficiency 30 - 100 ng/mL (75 - 250 nmol/L) Toxicity >100 ng/mL (>250 nmol/L) Absolute lymphocyte countOrd ered By: Renard Burgos on 07-18-2022 Lymphocytes Auto (Unsp spec) [#/Vol] 2.48 10*3/uL 0.83-4.51 [facility] Basophil percentageOrdered B y: Renard Burgos on 07-18-2022 Basophils/100 WBC (Bld) 0.5 % 0-1 [facility] Eosinophils/100 WBC (Bld) 0.6 % 0-5 [facility] Neutrophils (Bld) [#/Vol] 5.9 10*3/uL 2.0-7.7 [facility] Neutrophils/100 WBC (Bld) 61.6 % 47-70 [facility] WBC (Bld) [#/Vol] 9.6 10*3/uL 4.4-11.0 [facility] Blood erythrocytes count (nu mber/volume)Ordered By: Renard Burgos on 07-18-2022 RBC (Bld) [#/Vol] 4.56 10*6/uL 4.6-6.2 [facility] Blood hemoglobin measurement (mass/volume)Ordered By: Renard Burgos on 07-18-2022 Hemoglobin (Bld) [Mass/Vol] 13.9 g/dL 13.0-16.5 [facility] Blood lymphocytes/100 leukoc ytesOrdered By: Renard Burgos on 07-18-2022 Lymphocytes/100 WBC (Bld) 25.9 % 19-41 [facility] Blood monocytes/100 leukocyt esOrdered By: Renard Burgos on 07-18-2022 Monocytes/100 WBC (Bld) 11.0 % 0-10 [facility] Blood platelet mean volumeOr dered By: Renard Burgos on 07-18-2022 Platelet mean volume (Bld) [Entitic vol] 11.3 fL 6.2-12.0 [facility] Determination of erythrocyte mean corpuscular volume (MCV)Ordered By: Renard Burgos on 07-18-2022 MCV (RBC) [Entitic vol] 93.9 fL 80-94 [facility] Hematocrit Auto (Bld) [Volum e fraction]Ordered By: Renard Burgos on 07-18-2022 Hematocrit (Bld) [Volume fraction] 42.8 % 40-54 [facility] - Hematology and Cell countsOrdered By: Renard Burgos on 07-18-2022 Erythrocyte distribution width (RBC) [Entitic vol] 44.0 fL 35.1-43.9 [facility] Erythrocyte distribution width (RBC) [Ratio] 12.8 % 11.6-14.6 [facility] Immature granulocytes/100 WBC (Bld) 0.400 % 0.0-0.9 [facility] Comment on above: IG% - Immature Granu locytes (promyelocytes, myelocytes and metamyelocytes) > 1% indicates that a LEFT SHIFT is Present. MCH (RBC) [Entitic mass] 30.5 pg 27.0-32.0 [facility] Nucleated RBC/100 WBC (Bld) [Ratio] 0 % 0-5 [facility] MCHC Auto (RBC) [Mass/Vol]Or dered By: Renard Burgos on 07-18-2022 MCHC (RBC) [Mass/Vol] 32.5 g/dL 32-36 [facility] Platelets bldOrdered By: Lyubov Burgos on 07-18-2022 Platelets (Bld) [#/Vol] 207 10*3/uL 150-450 [facility] Absolute lymphocyte countOrd ered By: Renard Burgos on 07-11-2022 Lymphocytes Auto (Unsp spec) [#/Vol] 2.37 10*3/uL 0.83-4.51 [facility] Basophil percentageOrdered B y: Renard Burgos on 07-11-2022 Basophils/100 WBC (Bld) 0.6 % 0-1 [facility] Eosinophils/100 WBC (Bld) 0.5 % 0-5 [facility] Neutrophils (Bld) [#/Vol] 5.3 10*3/uL 2.0-7.7 [facility] Neutrophils/100 WBC (Bld) 61.8 % 47-70 [facility] WBC (Bld) [#/Vol] 8.5 10*3/uL 4.4-11.0 [facility] Blood erythrocytes count (nu mber/volume)Ordered By: Renard Burgos on 07-11-2022 RBC (Bld) [#/Vol] 4.83 10*6/uL 4.6-6.2 [facility] Blood hemoglobin measurement (mass/volume)Ordered By: Renard Burgos on 07-11-2022 Hemoglobin (Bld) [Mass/Vol] 14.7 g/dL 13.0-16.5 [facility] Blood lymphocytes/100 leukoc ytesOrdered By: Renard Burgos on 07-11-2022 Lymphocytes/100 WBC (Bld) 27.8 % 19-41 [facility] Blood monocytes/100 leukocyt esOrdered By: Renard Burgos on 07-11-2022 Monocytes/100 WBC (Bld) 8.8 % 0-10 [facility] Blood platelet mean volumeOr dered By: Renard Burgos on 07-11-2022 Platelet mean volume (Bld) [Entitic vol] 10.6 fL 6.2-12.0 [facility] Determination of erythrocyte mean corpuscular volume (MCV)Ordered By: Renard Burgos on 07-11-2022 MCV (RBC) [Entitic vol] 90.7 fL 80-94 [facility] Hematocrit Auto (Bld) [Volum e fraction]Ordered By: Renard Burgos on 07-11-2022 Hematocrit (Bld) [Volume fraction] 43.8 % 40-54 [facility] - Hematology and Cell countsOrdered By: Renard Burgos on 07-11-2022 Erythrocyte distribution width (RBC) [Entitic vol] 41.2 fL 35.1-43.9 [facility] Erythrocyte distribution width (RBC) [Ratio] 12.7 % 11.6-14.6 [facility] Immature granulocytes/100 WBC (Bld) 0.500 % 0.0-0.9 [facility] Comment on above: IG% - Immature Granu locytes (promyelocytes, myelocytes and metamyelocytes) > 1% indicates that a LEFT SHIFT is Present. MCH (RBC) [Entitic mass] 30.4 pg 27.0-32.0 [facility] Nucleated RBC/100 WBC (Bld) [Ratio] 0 % 0-5 [facility] MCHC Auto (RBC) [Mass/Vol]Or dered By: Renard Burgos on 07-11-2022 MCHC (RBC) [Mass/Vol] 33.6 g/dL 32-36 [facility] Platelets bldOrdered By: [facility] lizy Burgos on 07-11-2022 Platelets (Bld) [#/Vol] 207 10*3/uL 150-450 [facility] Absolute lymphocyte countOrd ered By: Renard Burgos on 07-04-2022 Lymphocytes Auto (Unsp spec) [#/Vol] 1.87 10*3/uL 0.83-4.51 [facility] Basophil percentageOrdered B y: Renard Burgos on 07-04-2022 Basophils/100 WBC (Bld) 0.4 % 0-1 [facility] Eosinophils/100 WBC (Bld) 0.5 % 0-5 [facility] Neutrophils (Bld) [#/Vol] 7.5 10*3/uL 2.0-7.7 [facility] Neutrophils/100 WBC (Bld) 72.8 % 47-70 [facility] WBC (Bld) [#/Vol] 10.3 10*3/uL 4.4-11.0 [facility] Blood erythrocytes count (nu mber/volume)Ordered By: Renard Burgos on 07-04-2022 RBC (Bld) [#/Vol] 4.45 10*6/uL 4.6-6.2 [facility] Blood hemoglobin measurement (mass/volume)Ordered By: Renard Burgos on 07-04-2022 Hemoglobin (Bld) [Mass/Vol] 13.5 g/dL 13.0-16.5 [facility] Blood lymphocytes/100 leukoc ytesOrdered By: Renard Burgos on 07-04-2022 Lymphocytes/100 WBC (Bld) 18.1 % 19-41 [facility] Blood monocytes/100 leukocyt esOrdered By: Renard Burgos on 07-04-2022 Monocytes/100 WBC (Bld) 7.7 % 0-10 [facility] Blood platelet mean volumeOr dered By: Renard Burgos on 07-04-2022 Platelet mean volume (Bld) [Entitic vol] 11.3 fL 6.2-12.0 [facility] Determination of erythrocyte mean corpuscular volume (MCV)Ordered By: Renard Burgos on 07-04-2022 MCV (RBC) [Entitic vol] 93.0 fL 80-94 [facility] Hematocrit Auto (Bld) [Volum e fraction]Ordered By: Renard Burgos on 07-04-2022 Hematocrit (Bld) [Volume fraction] 41.4 % 40-54 [facility] - Hematology and Cell countsOrdered By: Renard Burgos on 07-04-2022 Erythrocyte distribution width (RBC) [Entitic vol] 43.0 fL 35.1-43.9 [facility] Erythrocyte distribution width (RBC) [Ratio] 12.5 % 11.6-14.6 [facility] Immature granulocytes/100 WBC (Bld) 0.500 % 0.0-0.9 [facility] Comment on above: IG% - Immature Granu locytes (promyelocytes, myelocytes and metamyelocytes) > 1% indicates that a LEFT SHIFT is Present. MCH (RBC) [Entitic mass] 30.3 pg 27.0-32.0 [facility] Nucleated RBC/100 WBC (Bld) [Ratio] 0 % 0-5 [facility] MCHC Auto (RBC) [Mass/Vol]Or dered By: Renard Burgos on 07-04-2022 MCHC (RBC) [Mass/Vol] 32.6 g/dL 32-36 [facility] Platelets bldOrdered By: Lyubov Burgos on 07-04-2022 Platelets (Bld) [#/Vol] 211 10*3/uL 150-450 [facility] Absolute lymphocyte countOrd ered By: Renard Burgos on 06-27-2022 Lymphocytes Auto (Unsp spec) [#/Vol] 1.83 10*3/uL 0.83-4.51 [facility] Basophil percentageOrdered B y: Renard Burgos on 06-27-2022 Basophils/100 WBC (Bld) 0.4 % 0-1 [facility] Eosinophils/100 WBC (Bld) 0.5 % 0-5 [facility] Neutrophils (Bld) [#/Vol] 5.0 10*3/uL 2.0-7.7 [facility] Neutrophils/100 WBC (Bld) 67.6 % 47-70 [facility] WBC (Bld) [#/Vol] 7.4 10*3/uL 4.4-11.0 [facility] Blood erythrocytes count (nu mber/volume)Ordered By: Renard Burgos on 06-27-2022 RBC (Bld) [#/Vol] 4.52 10*6/uL 4.6-6.2 [facility] Blood hemoglobin measurement (mass/volume)Ordered By: Renard Burgos on 06-27-2022 Hemoglobin (Bld) [Mass/Vol] 13.9 g/dL 13.0-16.5 [facility] Blood lymphocytes/100 leukoc ytesOrdered By: Renard Burgos on 06-27-2022 Lymphocytes/100 WBC (Bld) 24.7 % 19-41 [facility] Blood monocytes/100 leukocyt esOrdered By: Renard Burgos on 06-27-2022 Monocytes/100 WBC (Bld) 6.4 % 0-10 [facility] Blood platelet mean volumeOr dered By: Renard Burgos on 06-27-2022 Platelet mean volume (Bld) [Entitic vol] 10.7 fL 6.2-12.0 [facility] Determination of erythrocyte mean corpuscular volume (MCV)Ordered By: Renard Burgos on 06-27-2022 MCV (RBC) [Entitic vol] 91.2 fL 80-94 [facility] Hematocrit Auto (Bld) [Volum e fraction]Ordered By: Renard Burgos on 06-27-2022 Hematocrit (Bld) [Volume fraction] 41.2 % 40-54 [facility] - Hematology and Cell countsOrdered By: Renard Burgos on 06-27-2022 Erythrocyte distribution width (RBC) [Entitic vol] 41.9 fL 35.1-43.9 [facility] Erythrocyte distribution width (RBC) [Ratio] 12.7 % 11.6-14.6 [facility] Immature granulocytes/100 WBC (Bld) 0.400 % 0.0-0.9 [facility] Comment on above: IG% - Immature Granu locytes (promyelocytes, myelocytes and metamyelocytes) > 1% indicates that a LEFT SHIFT is Present. MCH (RBC) [Entitic mass] 30.8 pg 27.0-32.0 [facility] Nucleated RBC/100 WBC (Bld) [Ratio] 0 % 0-5 [facility] MCHC Auto (RBC) [Mass/Vol]Or dered By: Renard Burgos on 06-27-2022 MCHC (RBC) [Mass/Vol] 33.7 g/dL 32-36 [facility] Platelets bldOrdered By: Lyubov Burgos on 06-27-2022 Platelets (Bld) [#/Vol] 200 10*3/uL 150-450 [facility] Absolute lymphocyte countOrd ered By: Renard Burgos on 06-20-2022 Lymphocytes Auto (Unsp spec) [#/Vol] 1.57 10*3/uL 0.83-4.51 [facility] Basophil percentageOrdered B y: Renard Burgos on 06-20-2022 Basophils/100 WBC (Bld) 0.2 % 0-1 [facility] Eosinophils/100 WBC (Bld) 0.2 % 0-5 [facility] Neutrophils (Bld) [#/Vol] 6.5 10*3/uL 2.0-7.7 [facility] Neutrophils/100 WBC (Bld) 74.5 % 47-70 [facility] WBC (Bld) [#/Vol] 8.8 10*3/uL 4.4-11.0 [facility] Blood erythrocytes count (nu mber/volume)Ordered By: Renard Burgos on 06-20-2022 RBC (Bld) [#/Vol] 4.79 10*6/uL 4.6-6.2 [facility] Blood hemoglobin measurement (mass/volume)Ordered By: Renard Burgos on 06-20-2022 Hemoglobin (Bld) [Mass/Vol] 14.6 g/dL 13.0-16.5 [facility] Blood lymphocytes/100 leukoc ytesOrdered By: Renard Burgos on 06-20-2022 Lymphocytes/100 WBC (Bld) 17.8 % 19-41 [facility] Blood monocytes/100 leukocyt esOrdered By: Reanrd Burgos on 06-20-2022 Monocytes/100 WBC (Bld) 7.0 % 0-10 [facility] Blood platelet mean volumeOr dered By: Renard Burgos on 06-20-2022 Platelet mean volume (Bld) [Entitic vol] 11.1 fL 6.2-12.0 [facility] Determination of erythrocyte mean corpuscular volume (MCV)Ordered By: Renard Burgos on 06-20-2022 MCV (RBC) [Entitic vol] 92.1 fL 80-94 [facility] Hematocrit Auto (Bld) [Volum e fraction]Ordered By: Renard Burgos on 06-20-2022 Hematocrit (Bld) [Volume fraction] 44.1 % 40-54 [facility] - Hematology and Cell countsOrdered By: Renard Burgos on 06-20-2022 Erythrocyte distribution width (RBC) [Entitic vol] 42.4 fL 35.1-43.9 [facility] Erythrocyte distribution width (RBC) [Ratio] 12.6 % 11.6-14.6 [facility] Immature granulocytes/100 WBC (Bld) 0.300 % 0.0-0.9 [facility] Comment on above: IG% - Immature Granu locytes (promyelocytes, myelocytes and metamyelocytes) > 1% indicates that a LEFT SHIFT is Present. MCH (RBC) [Entitic mass] 30.5 pg 27.0-32.0 [facility] Nucleated RBC/100 WBC (Bld) [Ratio] 0 % 0-5 [facility] MCHC Auto (RBC) [Mass/Vol]Or dered By: Renard Burgos on 06-20-2022 MCHC (RBC) [Mass/Vol] 33.1 g/dL 32-36 [facility] Platelets bldOrdered By: Pet lizy Burgos on 06-20-2022 Platelets (Bld) [#/Vol] 207 10*3/uL 150-450 [facility] Absolute lymphocyte countOrd ered By: Renard Burgos on 06-13-2022 Lymphocytes Auto (Unsp spec) [#/Vol] 2.28 10*3/uL 0.83-4.51 [facility] Basophil percentageOrdered B y: Renard Burgos on 06-13-2022 Basophils/100 WBC (Bld) 0.5 % 0-1 [facility] Eosinophils/100 WBC (Bld) 0.4 % 0-5 [facility] Neutrophils (Bld) [#/Vol] 6.0 10*3/uL 2.0-7.7 [facility] Neutrophils/100 WBC (Bld) 65.6 % 47-70 [facility] WBC (Bld) [#/Vol] 9.2 10*3/uL 4.4-11.0 [facility] Blood erythrocytes count (nu mber/volume)Ordered By: Renard Burgos on 06-13-2022 RBC (Bld) [#/Vol] 4.55 10*6/uL 4.6-6.2 [facility] Blood hemoglobin measurement (mass/volume)Ordered By: Renard Burgos on 06-13-2022 Hemoglobin (Bld) [Mass/Vol] 13.7 g/dL 13.0-16.5 [facility] Blood lymphocytes/100 leukoc ytesOrdered By: Renard Burgos on 06-13-2022 Lymphocytes/100 WBC (Bld) 24.9 % 19-41 [facility] Blood monocytes/100 leukocyt esOrdered By: Renard Burgos on 06-13-2022 Monocytes/100 WBC (Bld) 8.2 % 0-10 [facility] Blood platelet mean volumeOr dered By: Renard Burgos on 06-13-2022 Platelet mean volume (Bld) [Entitic vol] 10.9 fL 6.2-12.0 [facility] Determination of erythrocyte mean corpuscular volume (MCV)Ordered By: Renard Burgos on 06-13-2022 MCV (RBC) [Entitic vol] 92.3 fL 80-94 [facility] Hematocrit Auto (Bld) [Volum e fraction]Ordered By: Renard Burgos on 02-13-2023 Hematocrit (Bld) [Volume fraction] 42.0 % 40-54 [facility] - Hematology and Cell countsOrdered By: Renard Burgos on 06-13-2022 Erythrocyte distribution width (RBC) [Entitic vol] 43.2 fL 35.1-43.9 [facility] Erythrocyte distribution width (RBC) [Ratio] 12.8 % 11.6-14.6 [facility] Immature granulocytes/100 WBC (Bld) 0.400 % 0.0-0.9 [facility] Comment on above: IG% - Immature Granu locytes (promyelocytes, myelocytes and metamyelocytes) > 1% indicates that a LEFT SHIFT is Present. MCH (RBC) [Entitic mass] 30.1 pg 27.0-32.0 [facility] Nucleated RBC/100 WBC (Bld) [Ratio] 0 % 0-5 [facility] MCHC Auto (RBC) [Mass/Vol]Or dered By: Renard Burgos on 06-13-2022 MCHC (RBC) [Mass/Vol] 32.6 g/dL 32-36 [facility] Platelets bldOrdered By: Lyubov Burgos on 06-13-2022 Platelets (Bld) [#/Vol] 203 10*3/uL 150-450 [facility] Absolute lymphocyte countOrd ered By: Renard Burgos on 06-06-2022 Lymphocytes Auto (Unsp spec) [#/Vol] 2.02 10*3/uL 0.83-4.51 [facility] Basophil percentageOrdered B y: Renard Burgos on 06-06-2022 Basophils/100 WBC (Bld) 0.5 % 0-1 [facility] Eosinophils/100 WBC (Bld) 0.7 % 0-5 [facility] Neutrophils (Bld) [#/Vol] 4.7 10*3/uL 2.0-7.7 [facility] Neutrophils/100 WBC (Bld) 63.3 % 47-70 [facility] WBC (Bld) [#/Vol] 7.4 10*3/uL 4.4-11.0 [facility] Blood erythrocytes count (nu mber/volume)Ordered By: Renard Burgos on 06-06-2022 RBC (Bld) [#/Vol] 4.57 10*6/uL 4.6-6.2 [facility] Blood hemoglobin measurement (mass/volume)Ordered By: Renard Burgos on 06-06-2022 Hemoglobin (Bld) [Mass/Vol] 14.0 g/dL 13.0-16.5 [facility] Blood lymphocytes/100 leukoc ytesOrdered By: Renard Burgos on 06-06-2022 Lymphocytes/100 WBC (Bld) 27.2 % 19-41 [facility] Blood monocytes/100 leukocyt esOrdered By: Renard Burgos on 06-06-2022 Monocytes/100 WBC (Bld) 7.9 % 0-10 [facility] Blood platelet mean volumeOr dered By: Renard Burgos on 06-06-2022 Platelet mean volume (Bld) [Entitic vol] 10.7 fL 6.2-12.0 [facility] Determination of erythrocyte mean corpuscular volume (MCV)Ordered By: Renard Burgos on 06-06-2022 MCV (RBC) [Entitic vol] 90.2 fL 80-94 [facility] Hematocrit Auto (Bld) [Volum e fraction]Ordered By: Renard Burgos on 06-06-2022 Hematocrit (Bld) [Volume fraction] 41.2 % 40-54 [facility] - Hematology and Cell countsOrdered By: Renard Burgos on 06-06-2022 Erythrocyte distribution width (RBC) [Entitic vol] 41.5 fL 35.1-43.9 [facility] Erythrocyte distribution width (RBC) [Ratio] 12.7 % 11.6-14.6 [facility] Immature granulocytes/100 WBC (Bld) 0.400 % 0.0-0.9 [facility] Comment on above: IG% - Immature Granu locytes (promyelocytes, myelocytes and metamyelocytes) > 1% indicates that a LEFT SHIFT is Present. MCH (RBC) [Entitic mass] 30.6 pg 27.0-32.0 [facility] Nucleated RBC/100 WBC (Bld) [Ratio] 0 % 0-5 [facility] MCHC Auto (RBC) [Mass/Vol]Or dered By: Renard Burgos on 06-06-2022 MCHC (RBC) [Mass/Vol] 34.0 g/dL 32-36 [facility] Platelets bldOrdered By: Lyubov lizy Loretta on 06-06-2022 Platelets (Bld) [#/Vol] 197 10*3/uL 150-450 [facility] Absolute lymphocyte countOrd ered By: Renard Burgos on 05-30-2022 Lymphocytes Auto (Unsp spec) [#/Vol] 2.32 10*3/uL 0.83-4.51 [facility] Basophil percentageOrdered B y: Renard Burgos on 05-30-2022 Basophils/100 WBC (Bld) 0.4 % 0-1 [facility] Eosinophils/100 WBC (Bld) 0.5 % 0-5 [facility] Neutrophils (Bld) [#/Vol] 5.2 10*3/uL 2.0-7.7 [facility] Neutrophils/100 WBC (Bld) 62.6 % 47-70 [facility] WBC (Bld) [#/Vol] 8.3 10*3/uL 4.4-11.0 [facility] Blood erythrocytes count (nu mber/volume)Ordered By: Renard Burgos on 05-30-2022 RBC (Bld) [#/Vol] 4.87 10*6/uL 4.6-6.2 [facility] Blood hemoglobin measurement (mass/volume)Ordered By: Renard Burgos on 05-30-2022 Hemoglobin (Bld) [Mass/Vol] 14.6 g/dL 13.0-16.5 [facility] Blood lymphocytes/100 leukoc ytesOrdered By: Renard Burgos on 05-30-2022 Lymphocytes/100 WBC (Bld) 27.9 % 19-41 [facility] Blood monocytes/100 leukocyt esOrdered By: Renard Burgos on 05-30-2022 Monocytes/100 WBC (Bld) 8.0 % 0-10 [facility] Blood platelet mean volumeOr dered By: Renard Burgos on 05-30-2022 Platelet mean volume (Bld) [Entitic vol] 10.9 fL 6.2-12.0 [facility] Determination of erythrocyte mean corpuscular volume (MCV)Ordered By: Renard Burgos on 05-30-2022 MCV (RBC) [Entitic vol] 91.6 fL 80-94 [facility] Hematocrit Auto (Bld) [Volum e fraction]Ordered By: Renard Burgos on 05-30-2022 Hematocrit (Bld) [Volume fraction] 44.6 % 40-54 [facility] - Hematology and Cell countsOrdered By: Renard Burgos on 05-30-2022 Erythrocyte distribution width (RBC) [Entitic vol] 42.4 fL 35.1-43.9 [facility] Erythrocyte distribution width (RBC) [Ratio] 12.6 % 11.6-14.6 [facility] Immature granulocytes/100 WBC (Bld) 0.600 % 0.0-0.9 [facility] Comment on above: IG% - Immature Granu locytes (promyelocytes, myelocytes and metamyelocytes) > 1% indicates that a LEFT SHIFT is Present. MCH (RBC) [Entitic mass] 30.0 pg 27.0-32.0 [facility] Nucleated RBC/100 WBC (Bld) [Ratio] 0 % 0-5 [facility] MCHC Auto (RBC) [Mass/Vol]Or dered By: Renard Burgos on 05-30-2022 MCHC (RBC) [Mass/Vol] 32.7 g/dL 32-36 [facility] Platelets bldOrdered By: Lyubov Burgos on 05-30-2022 Platelets (Bld) [#/Vol] 213 10*3/uL 150-450 [facility] Absolute lymphocyte countOrd ered By: Renard Burgos on 05-23-2022 Lymphocytes Auto (Unsp spec) [#/Vol] 2.07 10*3/uL 0.83-4.51 [facility] Basophil percentageOrdered B y: Renard Burgos on 05-23-2022 Basophils/100 WBC (Bld) 0.5 % 0-1 [facility] Eosinophils/100 WBC (Bld) 0.4 % 0-5 [facility] Neutrophils (Bld) [#/Vol] 5.7 10*3/uL 2.0-7.7 [facility] Neutrophils/100 WBC (Bld) 66.5 % 47-70 [facility] WBC (Bld) [#/Vol] 8.5 10*3/uL 4.4-11.0 [facility] Blood erythrocytes count (nu mber/volume)Ordered By: Renard Burgos on 05-23-2022 RBC (Bld) [#/Vol] 4.75 10*6/uL 4.6-6.2 [facility] Blood hemoglobin measurement (mass/volume)Ordered By: Renard Burgos on 05-23-2022 Hemoglobin (Bld) [Mass/Vol] 14.3 g/dL 13.0-16.5 [facility] Blood lymphocytes/100 leukoc ytesOrdered By: Renard Burgos on 05-23-2022 Lymphocytes/100 WBC (Bld) 24.4 % 19-41 [facility] Blood monocytes/100 leukocyt esOrdered By: Renard Burgos on 05-23-2022 Monocytes/100 WBC (Bld) 7.7 % 0-10 [facility] Blood platelet mean volumeOr dered By: Renard Burgos on 05-23-2022 Platelet mean volume (Bld) [Entitic vol] 11.1 fL 6.2-12.0 [facility] Determination of erythrocyte mean corpuscular volume (MCV)Ordered By: Renard Burgos on 05-23-2022 MCV (RBC) [Entitic vol] 90.9 fL 80-94 [facility] Hematocrit Auto (Bld) [Volum e fraction]Ordered By: Renard Burgos on 05-23-2022 Hematocrit (Bld) [Volume fraction] 43.2 % 40-54 [facility] - Hematology and Cell countsOrdered By: Renard Burgos on 05-23-2022 Erythrocyte distribution width (RBC) [Entitic vol] 41.7 fL 35.1-43.9 [facility] Erythrocyte distribution width (RBC) [Ratio] 12.5 % 11.6-14.6 [facility] Immature granulocytes/100 WBC (Bld) 0.500 % 0.0-0.9 [facility] Comment on above: IG% - Immature Granu locytes (promyelocytes, myelocytes and metamyelocytes) > 1% indicates that a LEFT SHIFT is Present. MCH (RBC) [Entitic mass] 30.1 pg 27.0-32.0 [facility] Nucleated RBC/100 W[facility] (Bld) [Ratio] 0 % 0-5 [facility] [Mass/Vol]Or dered By: Renard Burgos on 05-23-2022 MCHC (RBC) [Mass/Vol] 33.1 g/dL 32-36 [facility] Platelets bldOrdered By: Pet lizy Hensleyrustam on 05-23-2022 Platelets (Bld) [#/Vol] 213 10*3/uL 150-450 [facility] No Panel Informationon 05-20 Dejah Hazel DO 05/20/2022 7:32 PM Feeding Tube Replacement Performed by: Dejah Hazel DO Authorized by: Abelardo Rios DO Consent: Consent obtained: Verbal Consent given by: Patient [place] protocol: Patient identity confirmed: Verbally with patient [...] Procedure completion: Tolerated well, no immediate complications [employer] XR Abdomen Single viewon G-tube position is within the stomach. No evidence of contrast extravasation. Report Dictated on Electronically Signed By: Jason Tran Electronically Signed Date/Time: 05/20/2022 7:38 PM [facility] RADIOLOGY [facility] Patient Name: KATHYA HOOPER Exam Date/Time: 05/20/2022 19:18 Procedure: XR ABDOMEN 1 VIEW Ordering Provider: RIOS TYLER Reason For Exam: SUPINE ABDOMEN (KUB) CLINICAL INDICATION: confirm placement of G tube A supine plain film of the abdomen was obtained. Repeat abdominal radiographs following hand injection of enteric contrast via the patient's enteric tube. (Gastrografin 30 mL). COMPARISON: None FINDINGS: On the imposer image, no dilated bowel loops are identified. Feeding tube overlies the epigastric region of the abdomen. On the postcontrast images, there is a small amount of enteric contrast in the stomach and contrast is present throughout the proximal duodenum. No extravasated contrast is evident. [facility] RADIOLOGY [facility] Jason Tran M D - 05/20/2022 [...] 30 mL). COMPARISON: None FINDINGS: On the imposer image, no dilated bowel loops are identified. [...] Electronically Signed Date/Time: 05/20/2022 7:38 PM EST [facility] Radiology Study observation (narrative) [facility] XR Abdomen Single viewOrdere d By: Jason Tran on 05-20-2022 [facility] Work Phone: Absolute lymphocyte countOrd ered By: Renard Burgos on 05-16-2022 Lymphocytes Auto (Unsp spec) [#/Vol] 2.06 10*3/uL 0.83-4.51 [facility] Basophil percentageOrdered B y: Renard Burgos on 05-16-2022 Basophils/100 WBC (Bld) 0.6 % 0-1 [facility] Eosinophils/100 WBC (Bld) 0.6 % 0-5 [facility] Neutrophils (Bld) [#/Vol] 4.4 10*3/uL 2.0-7.7 [facility] Neutrophils/100 WBC (Bld) 61.2 % 47-70 [facility] WBC (Bld) [#/Vol] 7.1 10*3/uL 4.4-11.0 [facility] Blood erythrocytes count (nu mber/volume)Ordered By: Renard Burgos on 05-16-2022 RBC (Bld) [#/Vol] 4.58 10*6/uL 4.6-6.2 [facility] Blood hemoglobin measurement (mass/volume)Ordered By: Renard Burgos on 05-16-2022 Hemoglobin (Bld) [Mass/Vol] 13.9 g/dL 13.0-16.5 [facility] Blood lymphocytes/100 leukoc ytesOrdered By: Renard Burgos on 05-16-2022 Lymphocytes/100 WBC (Bld) 29.0 % 19-41 [facility] Blood monocytes/100 leukocyt esOrdered By: Renard Burgos on 05-16-2022 Monocytes/100 WBC (Bld) 8.2 % 0-10 [facility] Blood platelet mean volumeOr dered By: Renard Burgos on 05-16-2022 Platelet mean volume (Bld) [Entitic vol] 11.1 fL 6.2-12.0 [facility] Determination of erythrocyte mean corpuscular volume (MCV)Ordered By: Renard Burgos on 05-16-2022 MCV (RBC) [Entitic vol] 91.5 fL 80-94 [facility] Hematocrit Auto (Bld) [Volum e fraction]Ordered By: Renard Burgos on 05-16-2022 Hematocrit (Bld) [Volume fraction] 41.9 % 40-54 [facility] - Hematology and Cell countsOrdered By: Rneard Burgos on 05-16-2022 Erythrocyte distribution width (RBC) [Entitic vol] 41.3 fL 35.1-43.9 [facility] Erythrocyte distribution width (RBC) [Ratio] 12.5 % 11.6-14.6 [facility] Immature granulocytes/100 WBC (Bld) 0.400 % 0.0-0.9 [facility] Comment on above: IG% - Immature Granu locytes (promyelocytes, myelocytes and metamyelocytes) > 1% indicates that a LEFT SHIFT is Present. MCH (RBC) [Entitic mass] 30.3 pg 27.0-32.0 [facility] Nucleated RBC/100 WBC (Bld) [Ratio] 0 % 0-5 [facility] MCHC Auto (RBC) [Mass/Vol]Or dered By: Renard Burgos on 05-16-2022 MCHC (RBC) [Mass/Vol] 33.2 g/dL 32-36 [facility] Platelets bldOrdered By: Lyubov Burgos on 05-16-2022 Platelets (Bld) [#/Vol] 205 10*3/uL 150-450 [facility] Absolute lymphocyte countOrd ered By: Renard Burgos on 05-09-2022 Lymphocytes Auto (Unsp spec) [#/Vol] 1.92 10*3/uL 0.83-4.51 [facility] Basophil percentageOrdered B y: Renard Burgos on 05-09-2022 Basophils/100 WBC (Bld) 0.7 % 0-1 [facility] Eosinophils/100 WBC (Bld) 0.7 % 0-5 [facility] Neutrophils (Bld) [#/Vol] 4.3 10*3/uL 2.0-7.7 [facility] Neutrophils/100 WBC (Bld) 60.9 % 47-70 [facility] WBC (Bld) [#/Vol] 7.1 10*3/uL 4.4-11.0 [facility] Blood erythrocytes count (nu mber/volume)Ordered By: Renard Burgos on 05-09-2022 RBC (Bld) [#/Vol] 4.67 10*6/uL 4.6-6.2 [facility] Blood hemoglobin measurement (mass/volume)Ordered By: Renard Burgos on 05-09-2022 Hemoglobin (Bld) [Mass/Vol] 14.1 g/dL 13.0-16.5 [facility] Blood lymphocytes/100 leukoc ytesOrdered By: Renard Burgos on 05-09-2022 Lymphocytes/100 WBC (Bld) 27.2 % 19-41 [facility] Blood monocytes/100 leukocyt esOrdered By: Renard Burgos on 05-09-2022 Monocytes/100 WBC (Bld) 10.2 % 0-10 [facility] Blood platelet mean volumeOr dered By: Renard Burgos on 05-09-2022 Platelet mean volume (Bld) [Entitic vol] 11.5 fL 6.2-12.0 [facility] Determination of erythrocyte mean corpuscular volume (MCV)Ordered By: Renard Burgos on 05-09-2022 MCV (RBC) [Entitic vol] 91.0 fL 80-94 [facility] Hematocrit Auto (Bld) [Volum e fraction]Ordered By: Renard Burgos on 05-09-2022 Hematocrit (Bld) [Volume fraction] 42.5 % 40-54 [facility] - Hematology and Cell countsOrdered By: Renard Burgos on 05-09-2022 Erythrocyte distribution width (RBC) [Entitic vol] 41.4 fL 35.1-43.9 [facility] Erythrocyte distribution width (RBC) [Ratio] 12.7 % 11.6-14.6 [facility] Immature granulocytes/100 WBC (Bld) 0.300 % 0.0-0.9 [facility] Comment on above: IG% - Immature Granu locytes (promyelocytes, myelocytes and metamyelocytes) > 1% indicates that a LEFT SHIFT is Present. MCH (RBC) [Entitic mass] 30.2 pg 27.0-32.0 [facility] Nucleated RBC/100 WBC (Bld) [Ratio] 0.4 % 0-5 [facility] MCHC Auto (RBC) [Mass/Vol]Or dered By: Renard Burgos on 05-09-2022 MCHC (RBC) [Mass/Vol] 33.2 g/dL 32-36 [facility] Platelets bldOrdered By: Lyubov Burgos on 05-09-2022 Platelets (Bld) [#/Vol] 202 10*3/uL 150-450 [facility] Absolute lymphocyte countOrd ered By: Renard Burgos on 05-03-2022 Lymphocytes Auto (Unsp spec) [#/Vol] 1.86 10*3/uL 0.83-4.51 [facility] Basophil percentageOrdered B y: Renard Burgos on 05-03-2022 Basophils/100 WBC (Bld) 0.3 % 0-1 [facility] Eosinophils/100 WBC (Bld) 0.3 % 0-5 [facility] Neutrophils (Bld) [#/Vol] 6.4 10*3/uL 2.0-7.7 [facility] Neutrophils/100 WBC (Bld) 71.9 % 47-70 [facility] WBC (Bld) [#/Vol] 8.9 10*3/uL 4.4-11.0 [facility] Blood erythrocytes count (nu mber/volume)Ordered By: Renard Burgos on 05-03-2022 RBC (Bld) [#/Vol] 4.65 10*6/uL 4.6-6.2 [facility] Blood hemoglobin measurement (mass/volume)Ordered By: Renard Burgos on 05-03-2022 Hemoglobin (Bld) [Mass/Vol] 14.5 g/dL 13.0-16.5 [facility] Blood lymphocytes/100 leukoc ytesOrdered By: Renard Burgos on 05-03-2022 Lymphocytes/100 WBC (Bld) 20.9 % 19-41 [facility] Blood monocytes/100 leukocyt esOrdered By: Renard Burgos on 05-03-2022 Monocytes/100 WBC (Bld) 6.2 % 0-10 [facility] Blood platelet mean volumeOr dered By: Renard Burgos on 05-03-2022 Platelet mean volume (Bld) [Entitic vol] 11.1 fL 6.2-12.0 [facility] Determination of erythrocyte mean corpuscular volume (MCV)Ordered By: Renard Burgos on 05-03-2022 MCV (RBC) [Entitic vol] 90.1 fL 80-94 [facility] Hematocrit Auto (Bld) [Volum e fraction]Ordered By: Renard Burgos on 05-03-2022 Hematocrit (Bld) [Volume fraction] 41.9 % 40-54 [facility] - Hematology and Cell countsOrdered By: Renard Burgos on 05-03-2022 Erythrocyte distribution width (RBC) [Entitic vol] 39.7 fL 35.1-43.9 [facility] Erythrocyte distribution width (RBC) [Ratio] 12.2 % 11.6-14.6 [facility] Immature granulocytes/100 WBC (Bld) 0.400 % 0.0-0.9 [facility] Comment on above: IG% - Immature Granu locytes (promyelocytes, myelocytes and metamyelocytes) > 1% indicates that a LEFT SHIFT is Present. MCH (RBC) [Entitic mass] 31.2 pg 27.0-32.0 [facility] Nucleated RBC/100 WBC (Bld) [Ratio] 0 % 0-5 [facility] MCHC Auto (RBC) [Mass/Vol]Or dered By: Renard Burgos on 05-03-2022 MCHC (RBC) [Mass/Vol] 34.6 g/dL 32-36 [facility] Platelets bldOrdered By: Lyubov Burgos on 05-03-2022 Platelets (Bld) [#/Vol] 203 10*3/uL 150-450 [facility] Absolute lymphocyte countOrd ered By: Renard Burgos on 04-26-2022 Lymphocytes Auto (Unsp spec) [#/Vol] 2.79 10*3/uL 0.83-4.51 [facility] Basophil percentageOrdered B y: Renard Burgos on 04-26-2022 Basophils/100 WBC (Bld) 0.4 % 0-1 [facility] Eosinophils/100 WBC (Bld) 0.4 % 0-5 [facility] Neutrophils (Bld) [#/Vol] 5.9 10*3/uL 2.0-7.7 [facility] Neutrophils/100 WBC (Bld) 60.9 % 47-70 [facility] WBC (Bld) [#/Vol] 9.7 10*3/uL 4.4-11.0 [facility] Blood erythrocytes count (nu mber/volume)Ordered By: Renard Burgos on 04-26-2022 RBC (Bld) [#/Vol] 4.92 10*6/uL 4.6-6.2 [facility] Blood hemoglobin measurement (mass/volume)Ordered By: Renard Burgos on 04-26-2022 Hemoglobin (Bld) [Mass/Vol] 15.2 g/dL 13.0-16.5 [facility] Blood lymphocytes/100 leukoc ytesOrdered By: Renard Burgos on 04-26-2022 Lymphocytes/100 WBC (Bld) 28.9 % 19-41 [facility] Blood monocytes/100 leukocyt esOrdered By: Renard Burgos on 04-26-2022 Monocytes/100 WBC (Bld) 9.0 % 0-10 [facility] Blood platelet mean volumeOr dered By: Renard Burgos on 04-26-2022 Platelet mean volume (Bld) [Entitic vol] 11.0 fL 6.2-12.0 [facility] Determination of erythrocyte mean corpuscular volume (MCV)Ordered By: Renard Burgos on 04-26-2022 MCV (RBC) [Entitic vol] 92.3 fL 80-94 [facility] Hematocrit Auto (Bld) [Volum e fraction]Ordered By: Renard Burgos on 04-26-2022 Hematocrit (Bld) [Volume fraction] 45.4 % 40-54 [facility] - Hematology and Cell countsOrdered By: Renard Burgos on 04-26-2022 Erythrocyte distribution width (RBC) [Entitic vol] 42.1 fL 35.1-43.9 [facility] Erythrocyte distribution width (RBC) [Ratio] 12.5 % 11.6-14.6 [facility] Immature granulocytes/100 WBC (Bld) 0.400 % 0.0-0.9 [facility] Comment on above: IG% - Immature Granu locytes (promyelocytes, myelocytes and metamyelocytes) > 1% indicates that a LEFT SHIFT is Present. MCH (RBC) [Entitic mass] 30.9 pg 27.0-32.0 [facility] Nucleated RBC/100 WBC (Bld) [Ratio] 0 % 0-5 [facility] MCHC Auto (RBC) [Mass/Vol]Or dered By: Renard Burgos on 04-26-2022 MCHC (RBC) [Mass/Vol] 33.5 g/dL 32-36 [facility] Platelets bldOrdered By: Lyubov Burgos on 04-26-2022 Platelets (Bld) [#/Vol] 178 10*3/uL 150-450 [facility] Absolute lymphocyte countOrd ered By: Renard Burgos on 04-18-2022 Lymphocytes Auto (Unsp spec) [#/Vol] 2.03 10*3/uL 0.83-4.51 [facility] Basophil percentageOrdered B y: Renard Burgos on 04-18-2022 Basophils/100 WBC (Bld) 0.6 % 0-1 [facility] Eosinophils/100 WBC (Bld) 0.6 % 0-5 [facility] Neutrophils (Bld) [#/Vol] 4.5 10*3/uL 2.0-7.7 [facility] Neutrophils/100 WBC (Bld) 62.0 % 47-70 [facility] WBC (Bld) [#/Vol] 7.2 10*3/uL 4.4-11.0 [facility] Blood erythrocytes count (nu mber/volume)Ordered By: Renard Burgos on 04-18-2022 RBC (Bld) [#/Vol] 4.67 10*6/uL 4.6-6.2 [facility] Blood hemoglobin measurement (mass/volume)Ordered By: Renard Burgos on 04-18-2022 Hemoglobin (Bld) [Mass/Vol] 14.5 g/dL 13.0-16.5 [facility] Blood lymphocytes/100 leukoc ytesOrdered By: Renard Burgos on 04-18-2022 Lymphocytes/100 WBC (Bld) 28.2 % 19-41 [facility] Blood monocytes/100 leukocyt esOrdered By: Renard Burgos on 04-18-2022 Monocytes/100 WBC (Bld) 8.2 % 0-10 [facility] Blood platelet mean volumeOr dered By: Renard Burgos on 04-18-2022 Platelet mean volume (Bld) [Entitic vol] 11.2 fL 6.2-12.0 [facility] Determination of erythrocyte mean corpuscular volume (MCV)Ordered By: Renard Burgos on 04-18-2022 MCV (RBC) [Entitic vol] 90.8 fL 80-94 [facility] Hematocrit Auto (Bld) [Volum e fraction]Ordered By: Renard Burgos on 04-18-2022 Hematocrit (Bld) [Volume fraction] 42.4 % 40-54 [facility] - Hematology and Cell countsOrdered By: Renard Burgos on 04-18-2022 Erythrocyte distribution width (RBC) [Entitic vol] 41.1 fL 35.1-43.9 [facility] Erythrocyte distribution width (RBC) [Ratio] 12.5 % 11.6-14.6 [facility] Immature granulocytes/100 WBC (Bld) 0.400 % 0.0-0.9 [facility] Comment on above: IG% - Immature Granu locytes (promyelocytes, myelocytes and metamyelocytes) > 1% indicates that a LEFT SHIFT is Present. MCH (RBC) [Entitic mass] 31.0 pg 27.0-32.0 [facility] Nucleated RBC/100 WBC (Bld) [Ratio] 0 % 0-5 [facility] MCHC Auto (RBC) [Mass/Vol]Or dered By: Renard Burgos on 04-18-2022 MCHC (RBC) [Mass/Vol] 34.2 g/dL 32-36 [facility] Platelets bldOrdered By: Pet lizy Burgos on 04-18-2022 Platelets (Bld) [#/Vol] 196 10*3/uL 150-450 [facility] Basophil percentageOrdered B y: Renard Burgos on 04-14-2022 Bilirubin [Mass/Vol] 0.40 mg/dL 0.20-1.00 [facility] Comment on above: For patients on eltr ombopag therapy, use of Dimension [employer] TBIL is not recommended. Protein [Mass/Vol] 6.3 g/dL 6.4-8.2 [facility] Direct bilirubinOrdered By: Renard Burgos on 04-14-2022 Bilirubin.direct [Mass/Vol] 0.12 mg/dL 0.00-0.30 [facility] - Chemistry and C hemistry - challengeOrdered By: Renard Burgos on 04-14-2022 ALP [Catalytic activity/Vol] 117 U/L 45-117 [facility] ALT [Catalytic activity/Vol] 26 U/L 16-61 [facility] Globulin (S) [Mass/Vol] 3.2 g/dL 2.2-4.2 [facility] Serum or plasma albumin gordy urement (mass/volume)Ordered By: Renard Burgos on 04-14-2022 Albumin [Mass/Vol] 3.1 g/dL 3.2-5.0 [facility] Thin prep Papanicolaou smear with manual screeningOrdered By: Renard Burgos on 04-14-2022 Thin prep Papanicolaou smear with manual screening 12 U/L 15-37 [facility] Absolute lymphocyte countOrd ered By: Renard Burgos on 04-11-2022 Lymphocytes Auto (Unsp spec) [#/Vol] 2.16 10*3/uL 0.83-4.51 [facility] Basophil percentageOrdered B y: Renard Burogs on 04-11-2022 Basophils/100 WBC (Bld) 0.4 % 0-1 [facility] Eosinophils/100 WBC (Bld) 0.4 % 0-5 [facility] Neutrophils (Bld) [#/Vol] 4.2 10*3/uL 2.0-7.7 [facility] Neutrophils/100 WBC (Bld) 61.1 % 47-70 [facility] WBC (Bld) [#/Vol] 6.9 10*3/uL 4.4-11.0 [facility] Blood erythrocytes count (nu mber/volume)Ordered By: Renard Burgos on 04-11-2022 RBC (Bld) [#/Vol] 4.58 10*6/uL 4.6-6.2 [facility] Blood hemoglobin measurement (mass/volume)Ordered By: Renard Burgos on 04-11-2022 Hemoglobin (Bld) [Mass/Vol] 13.9 g/dL 13.0-16.5 [facility] Blood lymphocytes/100 leukoc ytesOrdered By: Renard Burgos on 04-11-2022 Lymphocytes/100 WBC (Bld) 31.2 % 19-41 [facility] Blood monocytes/100 leukocyt esOrdered By: Renard Burgos on 04-11-2022 Monocytes/100 WBC (Bld) 6.5 % 0-10 [facility] Blood platelet mean volumeOr dered By: Renard Burgos on 04-11-2022 Platelet mean volume (Bld) [Entitic vol] 11.4 fL 6.2-12.0 [facility] Determination of erythrocyte mean corpuscular volume (MCV)Ordered By: Renard Burgos on 04-11-2022 MCV (RBC) [Entitic vol] 91.9 fL 80-94 [facility] Hematocrit Auto (Bld) [Volum e fraction]Ordered By: Renard Burgos on 04-11-2022 Hematocrit (Bld) [Volume fraction] 42.1 % 40-54 [facility] - Hematology and Cell countsOrdered By: Renard Burgos on 04-11-2022 Erythrocyte distribution width (RBC) [Entitic vol] 41.5 fL 35.1-43.9 [facility] Erythrocyte distribution width (RBC) [Ratio] 12.3 % 11.6-14.6 [facility] Immature granulocytes/100 WBC (Bld) 0.400 % 0.0-0.9 [facility] Comment on above: IG% - Immature Granu locytes (promyelocytes, myelocytes and metamyelocytes) > 1% indicates that a LEFT SHIFT is Present. MCH (RBC) [Entitic mass] 30.3 pg 27.0-32.0 [facility] Nucleated RBC/100 WBC (Bld) [Ratio] 0 % 0-5 [facility] MCHC Auto (RBC) [Mass/Vol]Or dered By: Renard Burgos on 04-11-2022 MCHC (RBC) [Mass/Vol] 33.0 g/dL 32-36 [facility] Platelets bldOrdered By: Lyubov Burgos on 04-11-2022 Platelets (Bld) [#/Vol] 191 10*3/uL 150-450 [facility] Absolute lymphocyte countOrd ered By: Renard Burgos on 04-04-2022 Lymphocytes Auto (Unsp spec) [#/Vol] 1.99 10*3/uL 0.83-4.51 [facility] Basophil percentageOrdered B y: Renard Burgos on 04-04-2022 Basophils/100 WBC (Bld) 0.4 % 0-1 [facility] Cholesterol [Mass/Vol] 158 mg/dL <200 [facility] Comment on above: <200 mg/dL Desirable 200-240 mg/dL Borderline >240 mg/dL High Risk Eosinophils/100 WBC (Bld) 0.4 % 0-5 [facility] Neutrophils (Bld) [#/Vol] 4.9 10*3/uL 2.0-7.7 [facility] Neutrophils/100 WBC (Bld) 64.2 % 47-70 [facility] Triglyceride [Mass/Vol] 259 mg/dL <199 [facility] Comment on above: The drugs N-Acetylcy steine and Metamizole may falsely depress this assay.Serum Triglycerides Reference Interval Normal <150 mg/dL Borderline high 150 - 199 mg/dL High 200 - 499 mg/dL Very High > or = 500 mg/dL WBC (Bld) [#/Vol] 7.7 10*3/uL 4.4-11.0 [facility] Blood erythrocytes count (nu mber/volume)Ordered By: Renard Burgos on 04-04-2022 RBC (Bld) [#/Vol] 4.63 10*6/uL 4.6-6.2 [facility] Blood hemoglobin measurement (mass/volume)Ordered By: Renard Burgos on 04-04-2022 Hemoglobin (Bld) [Mass/Vol] 14.1 g/dL 13.0-16.5 [facility] Blood lymphocytes/100 leukoc ytesOrdered By: Renard Burgos on 04-04-2022 Lymphocytes/100 WBC (Bld) 25.9 % 19-41 [facility] Blood monocytes/100 leukocyt esOrdered By: Renard Burgos on 04-04-2022 Monocytes/100 WBC (Bld) 8.6 % 0-10 [facility] Blood platelet mean volumeOr dered By: Renard Burgos on 04-04-2022 Platelet mean volume (Bld) [Entitic vol] 11.3 fL 6.2-12.0 [facility] Determination of erythrocyte mean corpuscular volume (MCV)Ordered By: Renard Burgos on 04-04-2022 MCV (RBC) [Entitic vol] 90.7 fL 80-94 [facility] Hematocrit Auto (Bld) [Volum e fraction]Ordered By: Renard Burgos on 04-04-2022 Hematocrit (Bld) [Volume fraction] 42.0 % 40-54 [facility] - Hematology and Cell countsOrdered By: Renard Burgos on 04-04-2022 Erythrocyte distribution width (RBC) [Entitic vol] 41.3 fL 35.1-43.9 [facility] Erythrocyte distribution width (RBC) [Ratio] 12.4 % 11.6-14.6 [facility] Immature granulocytes/100 WBC (Bld) 0.500 % 0.0-0.9 [facility] Comment on above: IG% - Immature Granu locytes (promyelocytes, myelocytes and metamyelocytes) > 1% indicates that a LEFT SHIFT is Present. MCH (RBC) [Entitic mass] 30.5 pg 27.0-32.0 [facility] Nucleated RBC/100 WBC (Bld) [Ratio] 0 % 0-5 [facility] MCHC Auto (RBC) [Mass/Vol]Or dered By: Renard Burgos on 04-04-2022 MCHC (RBC) [Mass/Vol] 33.6 g/dL 32-36 [facility] Platelets bldOrdered By: Lyubov Burgos on 04-04-2022 Platelets (Bld) [#/Vol] 174 10*3/uL 150-450 [facility] Serum or plasma cholesterol in HDL measurement (mass/volume)Ordered By: Renard Burgos on 04-04-2022 Cholesterol in HDL [Mass/Vol] 26 mg/dL >40 [facility] Comment on above: The drugs N-Acetylcy steine and Metamizole may falsely depress this assay. Reference Range HDL <40 mg/dL Low HDL Cholesterol HDL >or= 60 mg/dL High HDL Cholesterol Serum or plasma cholesterol in VLDL measurement (mass/volume)Ordered By: Renard Burgos on 04-04-2022 Cholesterol in VLDL [Mass/Vol] 52 mg/dL 5-40 [facility] Serum or plasma low density lipoprotein (LDL) cholesterol measurement (mass/volume)Ordered By: Renard Burgos on 04-04-2022 Cholesterol in LDL [Mass/Vol] 80 mg/dL 0-130 [facility] Absolute lymphocyte countOrd ered By: Renard Burgos on 03-28-2022 Lymphocytes Auto (Unsp spec) [#/Vol] 2.25 10*3/uL 0.83-4.51 [facility] Basophil percentageOrdered B y: Renard Burgos on 03-28-2022 Basophils/100 WBC (Bld) 0.6 % 0-1 [facility] Eosinophils/100 WBC (Bld) 0.5 % 0-5 [facility] Neutrophils (Bld) [#/Vol] 4.8 10*3/uL 2.0-7.7 [facility] Neutrophils/100 WBC (Bld) 60.5 % 47-70 [facility] WBC (Bld) [#/Vol] 8.0 10*3/uL 4.4-11.0 [facility] Blood erythrocytes count (nu mber/volume)Ordered By: Renard Burgos on 03-28-2022 RBC (Bld) [#/Vol] 4.69 10*6/uL 4.6-6.2 [facility] Blood hemoglobin measurement (mass/volume)Ordered By: Renard Burgos on 03-28-2022 Hemoglobin (Bld) [Mass/Vol] 14.4 g/dL 13.0-16.5 [facility] Blood lymphocytes/100 leukoc ytesOrdered By: Renard Burgos on 03-28-2022 Lymphocytes/100 WBC (Bld) 28.1 % 19-41 [facility] Blood monocytes/100 leukocyt esOrdered By: Renard Burgos on 03-28-2022 Monocytes/100 WBC (Bld) 9.8 % 0-10 [facility] Blood platelet mean volumeOr dered By: Renard Burgos on 03-28-2022 Platelet mean volume (Bld) [Entitic vol] 10.8 fL 6.2-12.0 [facility] Determination of erythrocyte mean corpuscular volume (MCV)Ordered By: Renard Burgos on 03-28-2022 MCV (RBC) [Entitic vol] 92.1 fL 80-94 [facility] Hematocrit Auto (Bld) [Volum e fraction]Ordered By: Renard Burgos on 03-28-2022 Hematocrit (Bld) [Volume fraction] 43.2 % 40-54 [facility] - Hematology and Cell countsOrdered By: Renard Burgos on 03-28-2022 Erythrocyte distribution width (RBC) [Entitic vol] 42.0 fL 35.1-43.9 [facility] Erythrocyte distribution width (RBC) [Ratio] 12.5 % 11.6-14.6 [facility] Immature granulocytes/100 WBC (Bld) 0.500 % 0.0-0.9 [facility] Comment on above: IG% - Immature Granu locytes (promyelocytes, myelocytes and metamyelocytes) > 1% indicates that a LEFT SHIFT is Present. MCH (RBC) [Entitic mass] 30.7 pg 27.0-32.0 [facility] Nucleated RBC/100 WBC (Bld) [Ratio] 0 % 0-5 [facility] MCHC Auto (RBC) [Mass/Vol]Or dered By: Renard Burgos on 03-28-2022 MCHC (RBC) [Mass/Vol] 33.3 g/dL 32-36 [facility] Platelets bldOrdered By: Lyubov Burgos on 03-28-2022 Platelets (Bld) [#/Vol] 207 10*3/uL 150-450 [facility] Absolute lymphocyte countOrd ered By: Renard Burgos on 03-21-2022 Lymphocytes Auto (Unsp spec) [#/Vol] 1.98 10*3/uL 0.83-4.51 [facility] Basophil percentageOrdered B y: Renard Burgos on 03-21-2022 Basophils/100 WBC (Bld) 0.5 % 0-1 [facility] Eosinophils/100 WBC (Bld) 0.5 % 0-5 [facility] Neutrophils (Bld) [#/Vol] 4.9 10*3/uL 2.0-7.7 [facility] Neutrophils/100 WBC (Bld) 63.6 % 47-70 [facility] WBC (Bld) [#/Vol] 7.7 10*3/uL 4.4-11.0 [facility] Blood erythrocytes count (nu mber/volume)Ordered By: Renard Burgos on 03-21-2022 RBC (Bld) [#/Vol] 4.82 10*6/uL 4.6-6.2 [facility] Blood hemoglobin measurement (mass/volume)Ordered By: Renard Burgos on 03-21-2022 Hemoglobin (Bld) [Mass/Vol] 14.9 g/dL 13.0-16.5 [facility] Blood lymphocytes/100 leukoc ytesOrdered By: Renard Burgos on 03-21-2022 Lymphocytes/100 WBC (Bld) 25.7 % 19-41 [facility] Blood monocytes/100 leukocyt esOrdered By: Renard Burgos on 03-21-2022 Monocytes/100 WBC (Bld) 9.3 % 0-10 [facility] Blood platelet mean volumeOr dered By: Renard Burgos on 03-21-2022 Platelet mean volume (Bld) [Entitic vol] 10.8 fL 6.2-12.0 [facility] Determination of erythrocyte mean corpuscular volume (MCV)Ordered By: Renard Burgos on 03-21-2022 MCV (RBC) [Entitic vol] 90.7 fL 80-94 [facility] Hematocrit Auto (Bld) [Volum e fraction]Ordered By: Renard Burgos on 03-21-2022 Hematocrit (Bld) [Volume fraction] 43.7 % 40-54 [facility] - Hematology and Cell countsOrdered By: Renard Burgos on 03-21-2022 Erythrocyte distribution width (RBC) [Entitic vol] 40.8 fL 35.1-43.9 [facility] Erythrocyte distribution width (RBC) [Ratio] 12.4 % 11.6-14.6 [facility] Immature granulocytes/100 WBC (Bld) 0.400 % 0.0-0.9 [facility] Comment on above: IG% - Immature Granu locytes (promyelocytes, myelocytes and metamyelocytes) > 1% indicates that a LEFT SHIFT is Present. MCH (RBC) [Entitic mass] 30.9 pg 27.0-32.0 [facility] Nucleated RBC/100 WBC (Bld) [Ratio] 0 % 0-5 [facility] MCHC Auto (RBC) [Mass/Vol]Or dered By: Renard Burgos on 03-21-2022 MCHC (RBC) [Mass/Vol] 34.1 g/dL 32-36 [facility] Platelets bldOrdered By: Lyubov Burgos on 03-21-2022 Platelets (Bld) [#/Vol] 186 10*3/uL 150-450 [facility] Absolute lymphocyte countOrd ered By: Renard Burgos on 03-14-2022 Lymphocytes Auto (Unsp spec) [#/Vol] 2.18 10*3/uL 0.83-4.51 [facility] Basophil percentageOrdered B y: Renard Burgos on 03-14-2022 Basophils/100 WBC (Bld) 0.4 % 0-1 [facility] Eosinophils/100 WBC (Bld) 0.6 % 0-5 [facility] Neutrophils (Bld) [#/Vol] 4.3 10*3/uL 2.0-7.7 [facility] Neutrophils/100 WBC (Bld) 58.8 % 47-70 [facility] WBC (Bld) [#/Vol] 7.3 10*3/uL 4.4-11.0 [facility] Blood erythrocytes count (nu mber/volume)Ordered By: Renard Burgos on 03-14-2022 RBC (Bld) [#/Vol] 4.80 10*6/uL 4.6-6.2 [facility] Blood hemoglobin measurement (mass/volume)Ordered By: Renard Burgos on 03-14-2022 Hemoglobin (Bld) [Mass/Vol] 14.5 g/dL 13.0-16.5 [facility] Blood lymphocytes/100 leukoc ytesOrdered By: Renard Burgos on 03-14-2022 Lymphocytes/100 WBC (Bld) 30.1 % 19-41 [facility] Blood monocytes/100 leukocyt esOrdered By: Renard Burgos on 03-14-2022 Monocytes/100 WBC (Bld) 9.5 % 0-10 [facility] Blood platelet mean volumeOr dered By: Renard Burgos on 03-14-2022 Platelet mean volume (Bld) [Entitic vol] 11.0 fL 6.2-12.0 [facility] Determination of erythrocyte mean corpuscular volume (MCV)Ordered By: Renard Burgos on 03-14-2022 MCV (RBC) [Entitic vol] 91.5 fL 80-94 [facility] Hematocrit Auto (Bld) [Volum e fraction]Ordered By: Renard Burgos on 03-14-2022 Hematocrit (Bld) [Volume fraction] 43.9 % 40-54 [facility] - Hematology and Cell countsOrdered By: Renard Burgos on 03-14-2022 Erythrocyte distribution width (RBC) [Entitic vol] 41.1 fL 35.1-43.9 [facility] Erythrocyte distribution width (RBC) [Ratio] 12.4 % 11.6-14.6 [facility] Immature granulocytes/100 WBC (Bld) 0.600 % 0.0-0.9 [facility] Comment on above: IG% - Immature Granu locytes (promyelocytes, myelocytes and metamyelocytes) > 1% indicates that a LEFT SHIFT is Present. MCH (RBC) [Entitic mass] 30.2 pg 27.0-32.0 [facility] Nucleated RBC/100 WBC (Bld) [Ratio] 0 % 0-5 [facility] MCHC Auto (RBC) [Mass/Vol]Or dered By: Renard Burgos on 03-14-2022 MCHC (RBC) [Mass/Vol] 33.0 g/dL 32-36 [facility] Platelets bldOrdered By: Lyubov Burgos on 03-14-2022 Platelets (Bld) [#/Vol] 201 10*3/uL 150-450 [facility] Absolute lymphocyte countOrd ered By: Renard Burgos on 2022 Lymphocytes Auto (Unsp spec) [#/Vol] 1.97 10*3/uL 0.83-4.51 [facility] Basophil percentageOrdered B y: Renard Burgos on 2022 Basophils/100 WBC (Bld) 0.6 % 0-1 [facility] Eosinophils/100 WBC (Bld) 0.4 % 0-5 [facility] Neutrophils (Bld) [#/Vol] 4.3 10*3/uL 2.0-7.7 [facility] Neutrophils/100 WBC (Bld) 61.3 % 47-70 [facility] WBC (Bld) [#/Vol] 7.0 10*3/uL 4.4-11.0 [facility] Blood erythrocytes count (nu mber/volume)Ordered By: Renard Burgos on 2022 RBC (Bld) [#/Vol] 4.78 10*6/uL 4.6-6.2 [facility] Blood hemoglobin measurement (mass/volume)Ordered By: Renard Burgos on 2022 Hemoglobin (Bld) [Mass/Vol] 14.4 g/dL 13.0-16.5 [facility] Blood lymphocytes/100 leukoc ytesOrdered By: Renrad Burgos on 2022 Lymphocytes/100 WBC (Bld) 28.3 % 19-41 [facility] Blood monocytes/100 leukocyt esOrdered By: Renard Burgos on 2022 Monocytes/100 WBC (Bld) 9.1 % 0-10 [facility] Blood platelet mean volumeOr dered By: Renard Burgos on 2022 Platelet mean volume (Bld) [Entitic vol] 11.1 fL 6.2-12.0 [facility] Determination of erythrocyte mean corpuscular volume (MCV)Ordered By: Renard Burgos on 2022 MCV (RBC) [Entitic vol] 91.2 fL 80-94 [facility] Hematocrit Auto (Bld) [Volum e fraction]Ordered By: Renard Burgos on 2022 Hematocrit (Bld) [Volume fraction] 43.6 % 40-54 [facility] - Hematology and Cell countsOrdered By: Renard Burgos on 2022 Erythrocyte distribution width (RBC) [Entitic vol] 42.0 fL 35.1-43.9 [facility] Erythrocyte distribution width (RBC) [Ratio] 12.6 % 11.6-14.6 [facility] Immature granulocytes/100 WBC (Bld) 0.300 % 0.0-0.9 [facility] Comment on above: IG% - Immature Granu locytes (promyelocytes, myelocytes and metamyelocytes) > 1% indicates that a LEFT SHIFT is Present. MCH (RBC) [Entitic mass] 30.1 pg 27.0-32.0 [facility] Nucleated RBC/100 WBC (Bld) [Ratio] 0 % 0-5 [facility] MCHC Auto (RBC) [Mass/Vol]Or dered By: Renard Burgos on 2022 MCHC (RBC) [Mass/Vol] 33.0 g/dL 32-36 [facility] Platelets bldOrdered By: Lyubov Burgos on 2022 Platelets (Bld) [#/Vol] 210 10*3/uL 150-450 [facility] Absolute lymphocyte countOrd ered By: Renard Burgos on 02-28-2022 Lymphocytes Auto (Unsp spec) [#/Vol] 1.85 10*3/uL 0.83-4.51 [facility] Basophil percentageOrdered B y: Renard Burgos on 02-28-2022 Basophils/100 WBC (Bld) 0.4 % 0-1 [facility] Eosinophils/100 WBC (Bld) 0.4 % 0-5 [facility] Neutrophils (Bld) [#/Vol] 5.3 10*3/uL 2.0-7.7 [facility] Neutrophils/100 WBC (Bld) 67.8 % 47-70 [facility] WBC (Bld) [#/Vol] 7.8 10*3/uL 4.4-11.0 [facility] Blood erythrocytes count (nu mber/volume)Ordered By: Renard Burgos on 02-28-2022 RBC (Bld) [#/Vol] 4.58 10*6/uL 4.6-6.2 [facility] Blood hemoglobin measurement (mass/volume)Ordered By: Renard Burgos on 02-28-2022 Hemoglobin (Bld) [Mass/Vol] 14.3 g/dL 13.0-16.5 [facility] Blood lymphocytes/100 leukoc ytesOrdered By: Renard Burgos on 02-28-2022 Lymphocytes/100 WBC (Bld) 23.8 % 19-41 [facility] Blood monocytes/100 leukocyt esOrdered By: Renard Burgos on 02-28-2022 Monocytes/100 WBC (Bld) 7.2 % 0-10 [facility] Blood platelet mean volumeOr dered By: Renard Burgos on 02-28-2022 Platelet mean volume (Bld) [Entitic vol] 10.8 fL 6.2-12.0 [facility] Determination of erythrocyte mean corpuscular volume (MCV)Ordered By: Renard Burgos on 02-28-2022 MCV (RBC) [Entitic vol] 91.5 fL 80-94 [facility] Hematocrit Auto (Bld) [Volum e fraction]Ordered By: Renard Burgos on 02-28-2022 Hematocrit (Bld) [Volume fraction] 41.9 % 40-54 [facility] - Hematology and Cell countsOrdered By: Renard Burgos on 02-28-2022 Erythrocyte distribution width (RBC) [Entitic vol] 42.2 fL 35.1-43.9 [facility] Erythrocyte distribution width (RBC) [Ratio] 12.7 % 11.6-14.6 [facility] Immature granulocytes/100 WBC (Bld) 0.400 % 0.0-0.9 [facility] Comment on above: IG% - Immature Granu locytes (promyelocytes, myelocytes and metamyelocytes) > 1% indicates that a LEFT SHIFT is Present. MCH (RBC) [Entitic mass] 31.2 pg 27.0-32.0 [facility] Nucleated RBC/100 WBC (Bld) [Ratio] 0 % 0-5 [facility] MCHC Auto (RBC) [Mass/Vol]Or dered By: Renard Burgos on 02-28-2022 MCHC (RBC) [Mass/Vol] 34.1 g/dL 32-36 [facility] Platelets bldOrdered By: Lyubov Burgos on 02-28-2022 Platelets (Bld) [#/Vol] 202 10*3/uL 150-450 [facility] Absolute lymphocyte countOrd ered By: Renard Burgos on 02-21-2022 Lymphocytes Auto (Unsp spec) [#/Vol] 1.93 10*3/uL 0.83-4.51 [facility] Basophil percentageOrdered B y: Renard Burgos on 02-21-2022 Basophils/100 WBC (Bld) 0.4 % 0-1 [facility] Eosinophils/100 WBC (Bld) 0.4 % 0-5 [facility] Neutrophils (Bld) [#/Vol] 4.6 10*3/uL 2.0-7.7 [facility] Neutrophils/100 WBC (Bld) 63.4 % 47-70 [facility] WBC (Bld) [#/Vol] 7.2 10*3/uL 4.4-11.0 [facility] Blood erythrocytes count (nu mber/volume)Ordered By: Renard Burgos on 02-21-2022 RBC (Bld) [#/Vol] 4.54 10*6/uL 4.6-6.2 [facility] Blood hemoglobin measurement (mass/volume)Ordered By: Renard Burgos on 02-21-2022 Hemoglobin (Bld) [Mass/Vol] 14.1 g/dL 13.0-16.5 [facility] Blood lymphocytes/100 leukoc ytesOrdered By: Renard Burgos on 02-21-2022 Lymphocytes/100 WBC (Bld) 26.7 % 19-41 [facility] Blood monocytes/100 leukocyt esOrdered By: Renard Burgos on 02-21-2022 Monocytes/100 WBC (Bld) 8.8 % 0-10 [facility] Blood platelet mean volumeOr dered By: Renard Burgos on 02-21-2022 Platelet mean volume (Bld) [Entitic vol] 11.1 fL 6.2-12.0 [facility] Determination of erythrocyte mean corpuscular volume (MCV)Ordered By: Renard Burgos on 02-21-2022 MCV (RBC) [Entitic vol] 91.4 fL 80-94 [facility] Hematocrit Auto (Bld) [Volum e fraction]Ordered By: Renard Burgos on 02-21-2022 Hematocrit (Bld) [Volume fraction] 41.5 % 40-54 [facility] - Hematology and Cell countsOrdered By: Renard Burgos on 02-21-2022 Erythrocyte distribution width (RBC) [Entitic vol] 41.9 fL 35.1-43.9 [facility] Erythrocyte distribution width (RBC) [Ratio] 12.6 % 11.6-14.6 [facility] Immature granulocytes/100 WBC (Bld) 0.300 % 0.0-0.9 [facility] Comment on above: IG% - Immature Granu locytes (promyelocytes, myelocytes and metamyelocytes) > 1% indicates that a LEFT SHIFT is Present. MCH (RBC) [Entitic mass] 31.1 pg 27.0-32.0 [facility] Nucleated RBC/100 WBC (Bld) [Ratio] 0 % 0-5 [facility] MCHC Auto (RBC) [Mass/Vol]Or dered By: Renard Burgos on 02-21-2022 MCHC (RBC) [Mass/Vol] 34.0 g/dL 32-36 [facility] Platelets bldOrdered By: Lyubov Burgos on 02-21-2022 Platelets (Bld) [#/Vol] 189 10*3/uL 150-450 [facility] Absolute lymphocyte countOrd ered By: Renard Burgos on 02-14-2022 Lymphocytes Auto (Unsp spec) [#/Vol] 2.00 10*3/uL 0.83-4.51 [facility] Basophil percentageOrdered B y: Renard Burgos on 02-14-2022 Basophils/100 WBC (Bld) 0.6 % 0-1 [facility] Eosinophils/100 WBC (Bld) 0.3 % 0-5 [facility] Neutrophils (Bld) [#/Vol] 6.4 10*3/uL 2.0-7.7 [facility] Neutrophils/100 WBC (Bld) 69.5 % 47-70 [facility] WBC (Bld) [#/Vol] 9.3 10*3/uL 4.4-11.0 [facility] Blood erythrocytes count (nu mber/volume)Ordered By: Renard Burgos on 02-14-2022 RBC (Bld) [#/Vol] 4.65 10*6/uL 4.6-6.2 [facility] Blood hemoglobin measurement (mass/volume)Ordered By: Renard Burgos on 02-14-2022 Hemoglobin (Bld) [Mass/Vol] 14.6 g/dL 13.0-16.5 [facility] Blood lymphocytes/100 leukoc ytesOrdered By: Renard Burgos on 02-14-2022 Lymphocytes/100 WBC (Bld) 21.6 % 19-41 [facility] Blood monocytes/100 leukocyt esOrdered By: Renard Burgos on 02-14-2022 Monocytes/100 WBC (Bld) 7.6 % 0-10 [facility] Blood platelet mean volumeOr dered By: Renard Burgos on 02-14-2022 Platelet mean volume (Bld) [Entitic vol] 11.1 fL 6.2-12.0 [facility] Determination of erythrocyte mean corpuscular volume (MCV)Ordered By: Renard Burgos on 02-14-2022 MCV (RBC) [Entitic vol] 91.8 fL 80-94 [facility] Hematocrit Auto (Bld) [Volum e fraction]Ordered By: Renard Burgos on 02-14-2022 Hematocrit (Bld) [Volume fraction] 42.7 % 40-54 [facility] - Hematology and Cell countsOrdered By: Renard Burgos on 02-14-2022 Erythrocyte distribution width (RBC) [Entitic vol] 43.7 fL 35.1-43.9 [facility] Erythrocyte distribution width (RBC) [Ratio] 13.0 % 11.6-14.6 [facility] Immature granulocytes/100 WBC (Bld) 0.400 % 0.0-0.9 [facility] Comment on above: IG% - Immature Granu locytes (promyelocytes, myelocytes and metamyelocytes) > 1% indicates that a LEFT SHIFT is Present. MCH (RBC) [Entitic mass] 31.4 pg 27.0-32.0 [facility] Nucleated RBC/100 WBC (Bld) [Ratio] 0 % 0-5 [facility] MCHC Auto (RBC) [Mass/Vol]Or dered By: Renard Burgos on 02-14-2022 MCHC (RBC) [Mass/Vol] 34.2 g/dL 32-36 [facility] Platelets bldOrdered By: Lyubov Burgos on 02-14-2022 Platelets (Bld) [#/Vol] 187 10*3/uL 150-450 [facility] Absolute lymphocyte countOrd ered By: Renard Burgos on 02-07-2022 Lymphocytes Auto (Unsp spec) [#/Vol] 1.97 10*3/uL 0.83-4.51 [facility] Basophil percentageOrdered B y: Renard Burgos on 02-07-2022 Basophils/100 WBC (Bld) 0.4 % 0-1 [facility] Eosinophils/100 WBC (Bld) 0.3 % 0-5 [facility] Neutrophils (Bld) [#/Vol] 4.2 10*3/uL 2.0-7.7 [facility] Neutrophils/100 WBC (Bld) 61.8 % 47-70 [facility] WBC (Bld) [#/Vol] 6.8 10*3/uL 4.4-11.0 [facility] Blood erythrocytes count (nu mber/volume)Ordered By: Renard Burgos on 02-07-2022 RBC (Bld) [#/Vol] 4.86 10*6/uL 4.6-6.2 [facility] Blood hemoglobin measurement (mass/volume)Ordered By: Renard Burgos on 02-07-2022 Hemoglobin (Bld) [Mass/Vol] 15.4 g/dL 13.0-16.5 [facility] Blood lymphocytes/100 leukoc ytesOrdered By: Renard Burgos on 02-07-2022 Lymphocytes/100 WBC (Bld) 29.1 % 19-41 [facility] Blood monocytes/100 leukocyt esOrdered By: Renard Burgos on 02-07-2022 Monocytes/100 WBC (Bld) 8.1 % 0-10 [facility] Blood platelet mean volumeOr dered By: Renard Burgos on 02-07-2022 Platelet mean volume (Bld) [Entitic vol] 11.0 fL 6.2-12.0 [facility] Determination of erythrocyte mean corpuscular volume (MCV)Ordered By: Renard Burgos on 02-07-2022 MCV (RBC) [Entitic vol] 92.6 fL 80-94 [facility] Hematocrit Auto (Bld) [Volum e fraction]Ordered By: Renard Burgos on 02-07-2022 Hematocrit (Bld) [Volume fraction] 45.0 % 40-54 [facility] - Hematology and Cell countsOrdered By: Renard Burgos on 02-07-2022 Erythrocyte distribution width (RBC) [Entitic vol] 43.1 fL 35.1-43.9 [facility] Erythrocyte distribution width (RBC) [Ratio] 12.7 % 11.6-14.6 [facility] Immature granulocytes/100 WBC (Bld) 0.300 % 0.0-0.9 [facility] Comment on above: IG% - Immature Granu locytes (promyelocytes, myelocytes and metamyelocytes) > 1% indicates that a LEFT SHIFT is Present. MCH (RBC) [Entitic mass] 31.7 pg 27.0-32.0 [facility] Nucleated RBC/100 WBC (Bld) [Ratio] 0 % 0-5 [facility] MCHC Auto (RBC) [Mass/Vol]Or dered By: Renard Burgos on 02-07-2022 MCHC (RBC) [Mass/Vol] 34.2 g/dL 32-36 [facility] Platelets bldOrdered By: Lyubov Burgos on 02-07-2022 Platelets (Bld) [#/Vol] 196 10*3/uL 150-450 [facility] Absolute lymphocyte countOrd ered By: Renard Burgos on 01-31-2022 Lymphocytes Auto (Unsp spec) [#/Vol] 2.19 10*3/uL 0.83-4.51 [facility] Basophil percentageOrdered B y: Renard Burgos on 01-31-2022 Basophils/100 WBC (Bld) 0.3 % 0-1 [facility] Eosinophils/100 WBC (Bld) 0.2 % 0-5 [facility] Neutrophils (Bld) [#/Vol] 5.7 10*3/uL 2.0-7.7 [facility] Neutrophils/100 WBC (Bld) 64.9 % 47-70 [facility] WBC (Bld) [#/Vol] 8.8 10*3/uL 4.4-11.0 [facility] Blood erythrocytes count (nu mber/volume)Ordered By: Renard uBrgos on 01-31-2022 RBC (Bld) [#/Vol] 4.81 10*6/uL 4.6-6.2 [facility] Blood hemoglobin measurement (mass/volume)Ordered By: Renard Burgos on 01-31-2022 Hemoglobin (Bld) [Mass/Vol] 14.9 g/dL 13.0-16.5 [facility] Blood lymphocytes/100 leukoc ytesOrdered By: Renard Burgos on 01-31-2022 Lymphocytes/100 WBC (Bld) 24.9 % 19-41 [facility] Blood monocytes/100 leukocyt esOrdered By: Renard Burgso on 01-31-2022 Monocytes/100 WBC (Bld) 9.2 % 0-10 [facility] Blood platelet mean volumeOr dered By: Renard Burgos on 01-31-2022 Platelet mean volume (Bld) [Entitic vol] 11.0 fL 6.2-12.0 [facility] Determination of erythrocyte mean corpuscular volume (MCV)Ordered By: Renard Burgos on 01-31-2022 MCV (RBC) [Entitic vol] 92.9 fL 80-94 [facility] Hematocrit Auto (Bld) [Volum e fraction]Ordered By: Renard Burgos on 01-31-2022 Hematocrit (Bld) [Volume fraction] 44.7 % 40-54 [facility] - Hematology and Cell countsOrdered By: Renard Burgos on 01-31-2022 Erythrocyte distribution width (RBC) [Entitic vol] 42.9 fL 35.1-43.9 [facility] Erythrocyte distribution width (RBC) [Ratio] 12.6 % 11.6-14.6 [facility] Immature granulocytes/100 WBC (Bld) 0.500 % 0.0-0.9 [facility] Comment on above: IG% - Immature Granu locytes (promyelocytes, myelocytes and metamyelocytes) > 1% indicates that a LEFT SHIFT is Present. MCH (RBC) [Entitic mass] 31.0 pg 27.0-32.0 [facility] Nucleated RBC/100 WBC (Bld) [Ratio] 0 % 0-5 [facility] MCHC Auto (RBC) [Mass/Vol]Or dered By: Renard Burgos on 01-31-2022 MCHC (RBC) [Mass/Vol] 33.3 g/dL 32-36 [facility] Platelets bldOrdered By: Lyubov Burgos on 01-31-2022 Platelets (Bld) [#/Vol] 204 10*3/uL 150-450 [facility] Absolute lymphocyte countOrd ered By: Renard Burgos on 01-24-2022 Lymphocytes Auto (Unsp spec) [#/Vol] 1.82 10*3/uL 0.83-4.51 [facility] Basophil percentageOrdered B y: Renard Burgos on 01-24-2022 Basophils/100 WBC (Bld) 0.3 % 0-1 [facility] Eosinophils/100 WBC (Bld) 0.3 % 0-5 [facility] Neutrophils (Bld) [#/Vol] 6.1 10*3/uL 2.0-7.7 [facility] Neutrophils/100 WBC (Bld) 69.9 % 47-70 [facility] WBC (Bld) [#/Vol] 8.7 10*3/uL 4.4-11.0 [facility] Blood erythrocytes count (nu mber/volume)Ordered By: Renard Burgos on 01-24-2022 RBC (Bld) [#/Vol] 4.74 10*6/uL 4.6-6.2 [facility] Blood hemoglobin measurement (mass/volume)Ordered By: Renard Burgso on 01-24-2022 Hemoglobin (Bld) [Mass/Vol] 14.5 g/dL 13.0-16.5 [facility] Blood lymphocytes/100 leukoc ytesOrdered By: Renard Burgos on 01-24-2022 Lymphocytes/100 WBC (Bld) 20.9 % 19-41 [facility] Blood monocytes/100 leukocyt esOrdered By: Renard Burgos on 01-24-2022 Monocytes/100 WBC (Bld) 8.4 % 0-10 [facility] Blood platelet mean volumeOr dered By: Renard Burgos on 01-24-2022 Platelet mean volume (Bld) [Entitic vol] 10.9 fL 6.2-12.0 [facility] Determination of erythrocyte mean corpuscular volume (MCV)Ordered By: Renard Burgos on 01-24-2022 MCV (RBC) [Entitic vol] 92.0 fL 80-94 [facility] Hematocrit Auto (Bld) [Volum e fraction]Ordered By: Renard Burgos on 01-24-2022 Hematocrit (Bld) [Volume fraction] 43.6 % 40-54 [facility] - Hematology and Cell countsOrdered By: Renard Burgos on 01-24-2022 Erythrocyte distribution width (RBC) [Entitic vol] 42.3 fL 35.1-43.9 [facility] Erythrocyte distribution width (RBC) [Ratio] 12.5 % 11.6-14.6 [facility] Immature granulocytes/100 WBC (Bld) 0.200 % 0.0-0.9 [facility] Comment on above: IG% - Immature Granu locytes (promyelocytes, myelocytes and metamyelocytes) > 1% indicates that a LEFT SHIFT is Present. MCH (RBC) [Entitic mass] 30.6 pg 27.0-32.0 [facility] Nucleated RBC/100 WBC (Bld) [Ratio] 0 % 0-5 [facility] MCHC Auto (RBC) [Mass/Vol]Or dered By: Renard Burgos on 01-24-2022 MCHC (RBC) [Mass/Vol] 33.3 g/dL 32-36 [facility] Platelets bldOrdered By: Lyubov Burgos on 01-24-2022 Platelets (Bld) [#/Vol] 192 10*3/uL 150-450 [facility] Absolute lymphocyte counton 01-17-2022 Lymphocytes Auto (Unsp spec) [#/Vol] 1.89 10*3/uL 0.83-4.51 [facility] Work Phone: Basophil percentageon 2021 Basophils/100 WBC (Bld) 0.4 % 0-1 [facility] Work Phone: Eosinophils/100 WBC (Bld) 0.3 % 0-5 [facility] Work Phone: Neutrophils (Bld) [#/Vol] 4.4 10*3/uL 2.0-7.7 [facility] Work Phone: Neutrophils/100 WBC (Bld) 62.4 % 47-70 [facility] Work Phone: WBC (Bld) [#/Vol] 7.0 10*3/uL 4.4-11.0 [facility] Work Phone: Blood erythrocytes count (nu mber/volume)on 01-17-2022 RBC (Bld) [#/Vol] 4.64 10*6/uL 4[facility]6-6.2 [facility]: Blood hemoglobin measurement (mass/volume)on 01-17-2022 Hemoglobin (Bld) [Mass/Vol] 14.1 g/dL 13.0-16.5 [facility] Work Phone: Blood lymphocytes/100 leukoc yteson 01-17-2022 Lymphocytes/100 WBC (Bld) 27.0 % 19-41 [facility] Work Phone: Blood monocytes/100 leukocyt eson 01-17-2022 Monocytes/100 WBC (Bld) 9.3 % 0-10 [facility] Work Phone: Blood platelet mean volumeon 01-17-2022 Platelet mean volume (Bld) [Entitic vol] 11.1 fL 6.2-12.0 [facility] Work Phone: Determination of erythrocyte mean corpuscular volume (MCV)on 01-17-2022 MCV (RBC) [Entitic vol] 91.8 fL 80-94 [facility] Work Phone: Hematocrit Auto (Bld) [Volum e fraction]on 01-17-2022 Hematocrit (Bld) [Volume fraction] 42.6 % 40-54 [facility] Work Phone: Laboratory - Hematology and Cell countson 01-17-2022 Erythrocyte distribution width (RBC) [Entitic vol] 41.5 fL 35.1-43.9 [facility] Work Phone: Erythrocyte distribution width (RBC) [Ratio] 12.5 % 11.6-14.6 [facility] Work Phone: Immature granulocytes/100 WBC (Bld) 0.600 % 0.0-0.9 [facility] Work Phone: Comment on above: IG% - Immature Granu locytes (promyelocytes, myelocytes and metamyelocytes) > 1% indicates that a LEFT SHIFT is Present. MCH (RBC) [Entitic mass] 30.4 pg 27.0-32.0 [facility] Work Phone: Nucleated RBC/100 WBC (Bld) [Ratio] 0 % 0-5 [facility] Work Phone: MCHC Auto (RBC) [Mass/Vol]on 01-17-2022 MCHC (RBC) [Mass/Vol] 33.1 g/dL 32-36 [facility] Work Phone: Platelets bldon 01-17-2022 Platelets (Bld) [#/Vol] 200 10*3/uL 150-450 [facility] Work Phone: Absolute lymphocyte counton 01-10-2022 Lymphocytes Auto (Unsp spec) [#/Vol] 2.07 10*3/uL 0.83-4.51 [facility] Work Phone: Basophil percentageon 2021 Basophils/100 WBC (Bld) 0.6 % 0-1 [facility] Work Phone: Eosinophils/100 WBC (Bld) 0.3 % 0-5 [facility] Work Phone: Neutrophils (Bld) [#/Vol] 4.2 10*3/uL 2.0-7.7 [facility] Work Phone: Neutrophils/100 WBC (Bld) 59.2 % 47-70 [facility] Work Phone: WBC (Bld) [#/Vol] 7.0 10*3/uL 4.4-11.0 [facility] Work Phone: Blood erythrocytes count (nu mber/volume)on 01-10-2022 RBC (Bld) [#/Vol] 4.83 10*6/uL 4.6-6.2 [facility]: Blood hemoglobin measurement (mass/volume)on 01-10-2022 Hemoglobin (Bld) [Mass/Vol] 14.8 g/dL 13.0-16.5 [facility] Work Phone: Blood lymphocytes/100 leukoc yteson 01-10-2022 Lymphocytes/100 WBC (Bld) 29.5 % 19-41 [facility] Work Phone: Blood monocytes/100 leukocyt eson 01-10-2022 Monocytes/100 WBC (Bld) 10.1 % 0-10 [facility] Work Phone: Blood platelet mean volumeon 01-10-2022 Platelet mean volume (Bld) [Entitic vol] 10.8 fL 6.2-12.0 [facility] Work Phone: Determination of erythrocyte mean corpuscular volume (MCV)on 01-10-2022 MCV (RBC) [Entitic vol] 97.5 fL 80-94 [facility] Work Phone: Hematocrit Auto (Bld) [Volum e fraction]on 01-10-2022 Hematocrit (Bld) [Volume fraction] 47.1 % 40-54 [facility] Work Phone: Laboratory - Hematology and Cell countson 01-10-2022 Erythrocyte distribution width (RBC) [Entitic vol] 44.9 fL 35.1-43.9 [facility] Work Phone: Erythrocyte distribution width (RBC) [Ratio] 12.7 % 11.6-14.6 [facility] Work Phone: Immature granulocytes/100 WBC (Bld) 0.300 % 0.0-0.9 [facility] Work Phone: Comment on above: IG% - Immature Granu locytes (promyelocytes, myelocytes and metamyelocytes) > 1% indicates that a LEFT SHIFT is Present. MCH (RBC) [Entitic mass] 30.6 pg 27.0-32.0 [facility] Work Phone: Nucleated RBC/100 WBC (Bld) [Ratio] 0 % 0-5 [facility] Work Phone: MCHC Auto (RBC) [Mass/Vol]on 01-10-2022 MCHC (RBC) [Mass/Vol] 31.4 g/dL 32-36 [facility] Platelets bldon 01-10-2022 Platelets (Bld) [#/Vol] 169 10*3/uL 150-450 [facility] Work Phone: Absolute lymphocyte counton 01-04-2022 Lymphocytes Auto (Unsp spec) [#/Vol] 1.84 10*3/uL 0.83-4.51 [facility] Work Phone: Basophil percentageon 2021 Basophils/100 WBC (Bld) 0.3 % 0-1 [facility] Work Phone: Eosinophils/100 WBC (Bld) 0.3 % 0-5 [facility] Work Phone: [phone] Neutrophils (Bld) [#/Vol] 4.8 10*3/uL 2.0-7.7 [facility] Work Phone: [phone] Neutrophils/100 WBC (Bld) 64.8 % 47-70 [facility] Work Phone: WBC (Bld) [#/Vol] 7.4 10*3/uL 4.4-11.0 [facility]: [phone] Blood erythrocytes count (nu mber/volume)on 01-04-2022 RBC (Bld) [#/Vol] 4.67 10*6/uL 4.6-6.2 [facility]: Blood hemoglobin measurement (mass/volume)on 01-04-2022 Hemoglobin (Bld) [Mass/Vol] 14.2 g/dL 13.0-16.5 [facility] Work Phone: Blood lymphocytes/100 leukoc yteson 01-04-2022 Lymphocytes/100 WBC (Bld) 25.0 % 19-41 [facility] Work Phone: Blood monocytes/100 leukocyt eson 01-04-2022 Monocytes/100 WBC (Bld) 9.1 % 0-10 [facility] Work [phone] Blood platelet mean volumeon 01-04-2022 Platelet mean volume (Bld) [Entitic vol] 11.0 fL 6.2-12.0 [facility] Work Phone: Determination of erythrocyte mean corpuscular volume (MCV)on 01-04-2022 MCV (RBC) [Entitic vol] 91.0 fL 80-94 [facility] Work Phone: Hematocrit Auto (Bld) [Volum e fraction]on 01-04-2022 Hematocrit (Bld) [Volume fraction] 42.5 % 40-54 [facility] Work Phone: Laboratory - Hematology and Cell countson 01-04-2022 Erythrocyte distribution width (RBC) [Entitic vol] 41.4 fL 35.1-43.9 [facility] Work Phone: Erythrocyte distribution width (RBC) [Ratio] 12.7 % 11.6-14.6 [facility] Work Phone: Immature granulocytes/100 WBC (Bld) 0.500 % 0.0-0.9 [facility] Work Phone: Comment on above: IG% - Immature Granu locytes (promyelocytes, myelocytes and metamyelocytes) > 1% indicates that a LEFT SHIFT is Present. MCH (RBC) [Entitic mass] 30.4 pg 27.0-32.0 [facility] Work Phone: Nucleated RBC/100 WBC (Bld) [Ratio] 0 % 0-5 [facility] Work Phone: MCHC Auto (RBC) [Mass/Vol]on 01-04-2022 MCHC (RBC) [Mass/Vol] 33.4 g/dL 32-36 [facility]: Platelets bldon 01-04-2022 Platelets (Bld) [#/Vol] 184 10*3/uL 150-450 [facility] Work Phone: Absolute lymphocyte counton 12-27-2021 Lymphocytes Auto (Unsp spec) [#/Vol] 1.79 10*3/uL 0.83-4.51 [facility] Work Phone: Basophil percentageon 2021 Basophils/100 WBC (Bld) 0.4 % 0-1 [facility] Work Phone: Eosinophils/100 WBC (Bld) 0.4 % 0-5 [facility] Work Phone: Neutrophils (Bld) [#/Vol] 4.9 10*3/uL 2.0-7.7 [facility] Work Phone: Neutrophils/100 WBC (Bld) 65.2 % 47-70 [facility] Work Phone: [phone] WBC (Bld) [#/Vol] 7.6 10*3/uL 4.4-11.0 [facility]: Blood erythrocytes count (nu mber/volume)on 12-27-2021 RBC (Bld) [#/Vol] 4.66 10*6/uL 4.6-6.2 [facility] Work [facility]: Blood hemoglobin measurement (mass/volume)on 12-27-2021 Hemoglobin (Bld) [Mass/Vol] 14.5 g/dL 13.0-16.5 [facility] Work Phone: Blood lymphocytes/100 leukoc yteson 12-27-2021 Lymphocytes/100 WBC (Bld) 23.6 % 19-41 [facility] Work Phone: Blood monocytes/100 leukocyt eson 12-27-2021 Monocytes/100 WBC (Bld) 10.0 % 0-10 [facility] Work Phone: Blood platelet mean volumeon 12-27-2021 Platelet mean volume (Bld) [Entitic vol] 10.9 fL 6.2-12.0 [facility] Work Phone: Determination of erythrocyte mean corpuscular volume (MCV)on 12-27-2021 MCV (RBC) [Entitic vol] 91.0 fL 80-94 [facility] Work Phone: [phone] Hematocrit Auto (Bld) [Volum e fraction]on 12-27-2021 Hematocrit (Bld) [Volume fraction] 42.4 % 40-54 [facility] Work Phone: Laboratory - Hematology and Cell countson 12-27-2021 Erythrocyte distribution width (RBC) [Entitic vol] 41.2 fL 35.1-43.9 [facility] Work Phone: Erythrocyte distribution width (RBC) [Ratio] 12.6 % 11.6-14.6 [facility] Work Phone: Immature granulocytes/100 WBC (Bld) 0.400 % 0.0-0.9 [facility] Work Phone: Comment on above: IG% - Immature Granu locytes (promyelocytes, myelocytes and metamyelocytes) > 1% indicates that a LEFT SHIFT is Present. MCH (RBC) [Entitic mass] 31.1 pg 27.0-32.0 [facility] Work Phone: Nucleated RBC/100 WBC (Bld) [Ratio] 0 % 0-5 [facility] Work Phone: MCHC Auto (RBC) [Mass/Vol]on 12-27-2021 MCHC (RBC) [Mass/Vol] 34.2 g/dL 32-36 [facility] Work Phone: Platelets bldon 12-27-2021 Platelets (Bld) [#/Vol] 185 10*3/uL 150-450 [facility] Work Phone: Absolute lymphocyte counton 12-20-2021 Lymphocytes Auto (Unsp spec) [#/Vol] 2.02 10*3/uL 0.83-4.51 [facility] Work Phone: [phone] Basophil percentageon 2021 Basophils/100 WBC (Bld) 0.2 % 0-1 [facility] Work Phone: [phone] Eosinophils/100 WBC (Bld) 0.3 % 0-5 [facility] Work Phone: Neutrophils (Bld) [#/Vol] 3.6 10*3/uL 2.0-7.7 [facility] Work Phone: Neutrophils/100 WBC (Bld) 57.8 % 47-70 [facility] Work Phone: [phone] WBC (Bld) [#/Vol] 6.1 10*3/uL 4.4-11.0 [facility] Work [facility]: Blood erythrocytes count (nu mber/volume)on 12-20-2021 RBC (Bld) [#/Vol] 4.81 10*6/uL 4.6-6.2 [facility] Work [facility]: Blood hemoglobin measurement (mass/volume)on 12-20-2021 Hemoglobin (Bld) [Mass/Vol] 14.8 g/dL 13.0-16.5 [facility] Work Phone: Blood lymphocytes/100 leukoc yteson 12-20-2021 Lymphocytes/100 WBC (Bld) 32.9 % 19-41 [facility] Work Phone: Blood monocytes/100 leukocyt eson 12-20-2021 Monocytes/100 WBC (Bld) 8.3 % 0-10 [facility] Work Phone: Blood platelet adequacy dete ction by light microscopyon 12-20-2021 Platelets LM Ql (Bld) ADEQUATE ADEQ [facility] Work Phone: Blood platelet mean volumeon 12-20-2021 Platelet mean volume (Bld) [Entitic vol] 11.1 fL 6.2-12.0 [facility] Work Phone: Determination of erythrocyte mean corpuscular volume (MCV)on 12-20-2021 MCV (RBC) [Entitic vol] 93.1 fL 80-94 [facility] Work Phone: Hematocrit Auto (Bld) [Volum e fraction]on 12-20-2021 Hematocrit (Bld) [Volume fraction] 44.8 % 40-54 [facility] Work Phone: Laboratory - Hematology and Cell countson 12-20-2021 Erythrocyte distribution width (RBC) [Entitic vol] 42.4 fL 35.1-43.9 [facility] Work Phone: Erythrocyte distribution width (RBC) [Ratio] 12.4 % 11.6-14.6 [facility] Work Phone: Immature granulocytes/100 WBC (Bld) 0.500 % 0.0-0.9 [facility] Work Phone: Comment on above: IG% - Immature Granu locytes (promyelocytes, myelocytes and metamyelocytes) > 1% indicates that a LEFT SHIFT is Present. MCH (RBC) [Entitic mass] 30.8 pg 27.0-32.0 [facility] Work Phone: Nucleated RBC/100 WBC (Bld) [Ratio] 0 % 0-5 [facility] Work Phone: MCHC Auto (RBC) [Mass/Vol]on 12-20-2021 MCHC (RBC) [Mass/Vol] 33.0 g/dL 32-36 [facility] Work Phone: Platelets bldon 12-20-2021 Platelets (Bld) [#/Vol] See comment 150-450 [facility] Work Phone: Comment on above: Please [...] Auto (Unsp spec) [#/Vol] 1.88 10*3/uL 0.83-4.51 [facility] Work Phone: Basophil percentageon 2021 Basophils/100 WBC (Bld) 0.6 % 0-1 [facility] Work Phone: Eosinophils/100 WBC (Bld) 0.3 % 0-5 [facility] Work Phone: Neutrophils (Bld) [#/Vol] 4.5 10*3/uL 2.0-7.7 [facility] Work Phone: Neutrophils/100 WBC (Bld) 63.6 % 47-70 [facility] Work Phone: WBC (Bld) [#/Vol] 7.1 10*3/uL 4.4-11.0 [facility]: Blood erythrocytes count (nu mber/volume)on 12-13-2021 RBC (Bld) [#/Vol] 4.70 10*6/uL 4.6-6.2 [facility] Work [facility]: Blood hemoglobin measurement (mass/volume)on 12-13-2021 Hemoglobin (Bld) [Mass/Vol] 14.4 g/dL 13.0-16.5 [facility] Work Phone: Blood lymphocytes/100 leukoc yteson 12-13-2021 Lymphocytes/100 WBC (Bld) 26.7 % 19-41 [facility] Work Phone: Blood monocytes/100 leukocyt eson 12-13-2021 Monocytes/100 WBC (Bld) 8.5 % 0-10 [facility] Work Phone: Blood platelet mean volumeon 12-13-2021 Platelet mean volume (Bld) [Entitic vol] 10.9 fL 6.2-12.0 [facility] Work Phone: Determination of erythrocyte mean corpuscular volume (MCV)on 12-13-2021 MCV (RBC) [Entitic vol] 90.9 fL 80-94 [facility] Work Phone: [phone] Hematocrit Auto (Bld) [Volum e fraction]on 12-13-2021 Hematocrit (Bld) [Volume fraction] 42.7 % 40-54 [facility] Work Phone: Laboratory - Hematology and Cell countson 12-13-2021 Erythrocyte distribution width (RBC) [Entitic vol] 42.1 fL 35.1-43.9 [facility] Work Phone: [phone] Erythrocyte distribution width (RBC) [Ratio] 12.6 % 11.6-14.6 [facility] Work Phone: [phone] Immature granulocytes/100 WBC (Bld) 0.300 % 0.0-0.9 [facility] Work Phone: Comment on above: IG% - Immature Granu locytes (promyelocytes, myelocytes and metamyelocytes) > 1% indicates that a LEFT SHIFT is Present. MCH (RBC) [Entitic mass] 30.6 pg 27.0-32.0 [facility] Work Phone: [phone] Nucleated RBC/100 WBC (Bld) [Ratio] 0 % 0-5 [facility] Work Phone: MCHC Auto (RBC) [Mass/Vol]on 12-13-2021 MCHC (RBC) [Mass/Vol] 33.7 g/dL 32-36 [facility] Work Phone: [phone] Platelets bldon 12-13-2021 Platelets (Bld) [#/Vol] 194 10*3/uL 150-450 [facility] Work Phone: [phone] Absolute lymphocyte counton 12-06-2021 Lymphocytes Auto (Unsp spec) [#/Vol] 1.91 10*3/uL 0.83-4.51 [facility] Work Phone: Basophil percentageon 2021 Basophils/100 WBC (Bld) 0.4 % 0-1 [facility] Work Phone: Eosinophils/100 WBC (Bld) 0.3 % 0-5 [facility] Work Phone: Neutrophils (Bld) [#/Vol] 4.4 10*3/uL 2.0-7.7 [facility] Work Phone: Neutrophils/100 WBC (Bld) 62.2 % 47-70 [facility] Work Phone: WBC (Bld) [#/Vol] 7.0 10*3/uL 4.4-11.0 [facility] Work Phone: Blood erythrocytes count (nu mber/volume)on 12-06-2021 RBC (Bld) [#/Vol] 4.58 10*6/uL 4.6-6.2 [facility] Work [facility]: Blood hemoglobin measurement (mass/volume)on 12-06-2021 Hemoglobin (Bld) [Mass/Vol] 13.8 g/dL 13.0-16.5 [facility] Work Phone: Blood lymphocytes/100 leukoc yteson 12-06-2021 Lymphocytes/100 WBC (Bld) 27.2 % 19-41 [facility] Work Phone: Blood monocytes/100 leukocyt eson 12-06-2021 Monocytes/100 WBC (Bld) 9.6 % 0-10 [facility] Work Phone: Blood platelet mean volumeon 12-06-2021 Platelet mean volume (Bld) [Entitic vol] 11.1 fL 6.2-12.0 [facility] Work Phone: Determination of erythrocyte mean corpuscular volume (MCV)on 12-06-2021 MCV (RBC) [Entitic vol] 92.1 fL 80-94 [facility] Work Phone: Hematocrit Auto (Bld) [Volum e fraction]on 12-06-2021 Hematocrit (Bld) [Volume fraction] 42.2 % 40-54 [facility] Work Phone: Laboratory - Hematology and Cell countson 12-06-2021 Erythrocyte distribution width (RBC) [Entitic vol] 42.1 fL 35.1-43.9 [facility] Work Phone: Erythrocyte distribution width (RBC) [Ratio] 12.6 % 11.6-14.6 [facility] Work Phone: Immature granulocytes/100 WBC (Bld) 0.300 % 0.0-0.9 [facility] Work Phone: Comment on above: IG% - Immature Granu locytes (promyelocytes, myelocytes and metamyelocytes) > 1% indicates that a LEFT SHIFT is Present. MCH (RBC) [Entitic mass] 30.1 pg 27.0-32.0 [facility] Work Phone: Nucleated RBC/100 WBC (Bld) [Ratio] 0 % 0-5 [facility] Work Phone: MCHC Auto (RBC) [Mass/Vol]on 12-06-2021 MCHC (RBC) [Mass/Vol] 32.7 g/dL 32-36 [facility] Work Phone: Platelets bldon 12-06-2021 Platelets (Bld) [#/Vol] 180 10*3/uL 150-450 [facility] Work Phone: Absolute lymphocyte counton 11-29-2021 Lymphocytes Auto (Unsp spec) [#/Vol] 2.00 10*3/uL 0.83-4.51 [facility] Work Phone: Basophil percentageon 2021 Basophils/100 WBC (Bld) 0.4 % 0-1 [facility] Work Phone: Eosinophils/100 WBC (Bld) 0.3 % 0-5 [facility] Work Phone: Neutrophils (Bld) [#/Vol] 4.4 10*3/uL 2.0-7.7 [facility] Work Phone: Neutrophils/100 WBC (Bld) 62.8 % 47-70 [facility] Work Phone: WBC (Bld) [#/Vol] 7.0 10*3/uL 4.4-11.0 [facility]: Blood erythrocytes count (nu mber/volume)on 11-29-2021 RBC (Bld) [#/Vol] 4.72 10*6/uL 4.6-6.2 [facility] Work [facility]: Blood hemoglobin measurement (mass/volume)on 11-29-2021 Hemoglobin (Bld) [Mass/Vol] 14.6 g/dL 13.0-16.5 [facility] Work Phone: Blood lymphocytes/100 leukoc yteson 11-29-2021 Lymphocytes/100 WBC (Bld) 28.6 % 19-41 [facility] Work Phone: Blood monocytes/100 leukocyt eson 11-29-2021 Monocytes/100 WBC (Bld) 7.6 % 0-10 [facility] Work Phone: Blood platelet mean volumeon 11-29-2021 Platelet mean volume (Bld) [Entitic vol] 11.1 fL 6.2-12.0 [facility] Work Phone: Determination of erythrocyte mean corpuscular volume (MCV)on 11-29-2021 MCV (RBC) [Entitic vol] 91.9 fL 80-94 [facility] Work Phone: Hematocrit Auto (Bld) [Volum e fraction]on 11-29-2021 Hematocrit (Bld) [Volume fraction] 43.4 % 40-54 [facility] Work Phone: Laboratory - Hematology and Cell countson 11-29-2021 Erythrocyte distribution width (RBC) [Entitic vol] 41.8 fL 35.1-43.9 [facility] Work Phone: Erythrocyte distribution width (RBC) [Ratio] 12.4 % 11.6-14.6 [facility] Work Phone: Immature granulocytes/100 WBC (Bld) 0.300 % 0.0-0.9 [facility] Work Phone: Comment on above: IG% - Immature Granu locytes (promyelocytes, myelocytes and metamyelocytes) > 1% indicates that a LEFT SHIFT is Present. MCH (RBC) [Entitic mass] 30.9 pg 27.0-32.0 [facility] Work Phone: [phone] Nucleated RBC/100 WBC (Bld) [Ratio] 0 % 0-5 [facility] Work Phone: MCHC Auto (RBC) [Mass/Vol]on 11-29-2021 MCHC (RBC) [Mass/Vol] 33.6 g/dL 32-36 [facility] Work Phone: Platelets bldon 11-29-2021 Platelets (Bld) [#/Vol] 205 10*3/uL 150-450 [facility] Work Phone: [phone] Absolute lymphocyte counton 11-22-2021 Lymphocytes Auto (Unsp spec) [#/Vol] 2.25 10*3/uL 0.83-4.51 [facility] Work Phone: [phone] Basophil percentageon 2021 Basophils/100 WBC (Bld) 0.4 % 0-1 [facility] Work Phone: Eosinophils/100 WBC (Bld) 0.4 % 0-5 [facility] Work Phone: Neutrophils (Bld) [#/Vol] 5.1 10*3/uL 2.0-7.7 [facility] Work Phone: Neutrophils/100 WBC (Bld) 61.7 % 47-70 [facility] Work Phone: WBC (Bld) [#/Vol] 8.3 10*3/uL 4.4-11.0 [facility] Work [facility]: [phone] Blood erythrocytes count (nu mber/volume)on 11-22-2021 RBC (Bld) [#/Vol] 4.47 10*6/uL 4.6-6.2 [facility] Work Phone: [phone] Blood hemoglobin measurement (mass/volume)on 11-22-2021 Hemoglobin (Bld) [Mass/Vol] 13.5 g/dL 13.0-16.5 [facility] Work Phone: Blood lymphocytes/100 leukoc yteson 11-22-2021 Lymphocytes/100 WBC (Bld) 27.2 % 19-41 [facility] Work Phone: Blood monocytes/100 leukocyt eson 11-22-2021 Monocytes/100 WBC (Bld) 9.9 % 0-10 [facility] Work Phone: Blood platelet mean volumeon 11-22-2021 Platelet mean volume (Bld) [Entitic vol] 11.1 fL 6.2-12.0 [facility] Work Phone: Determination of erythrocyte mean corpuscular volume (MCV)on 11-22-2021 MCV (RBC) [Entitic vol] 92.2 fL 80-94 [facility] Work Phone: Hematocrit Auto (Bld) [Volum e fraction]on 11-22-2021 Hematocrit (Bld) [Volume fraction] 41.2 % 40-54 [facility] Work Phone: Laboratory - Hematology and Cell countson 11-22-2021 Erythrocyte distribution width (RBC) [Entitic vol] 42.3 fL 35.1-43.9 [facility] Work Phone: Erythrocyte distribution width (RBC) [Ratio] 12.6 % 11.6-14.6 [facility] Work Phone: Immature granulocytes/100 WBC (Bld) 0.400 % 0.0-0.9 [facility] Work Phone: Comment on above: IG% - Immature Granu locytes (promyelocytes, myelocytes and metamyelocytes) > 1% indicates that a LEFT SHIFT is Present. MCH (RBC) [Entitic mass] 30.2 pg 27.0-32.0 [facility] Work Phone: Nucleated RBC/100 WBC (Bld) [Ratio] 0 % 0-5 [facility] Work Phone: MCHC Auto (RBC) [Mass/Vol]on 11-22-2021 MCHC (RBC) [Mass/Vol] 32.8 g/dL 32-36 [facility] Work Phone: [phone] Platelets bldon 11-22-2021 Platelets (Bld) [#/Vol] 190 10*3/uL 150-450 [facility] Work Phone: Absolute lymphocyte counton 11-15-2021 Lymphocytes Auto (Unsp spec) [#/Vol] 2.09 10*3/uL 0.83-4.51 [facility] Work Phone: [phone] Basophil percentageon 2021 Basophils/100 WBC (Bld) 0.6 % 0-1 [facility] Work Phone: [phone] Eosinophils/100 WBC (Bld) 0.4 % 0-5 [facility] Work Phone: Neutrophils (Bld) [#/Vol] 4.2 10*3/uL 2.0-7.7 [facility] Work Phone: [phone] Neutrophils/100 WBC (Bld) 59.1 % 47-70 [facility] Work Phone: [phone] WBC (Bld) [#/Vol] 7.1 10*3/uL 4.4-11.0 [facility] Work Phone: Blood erythrocytes count (nu mber/volume)on 11-15-2021 RBC (Bld) [#/Vol] 4.72 10*6/uL 4.6-6.2 [facility] Work Phone: [phone] Blood hemoglobin measurement (mass/volume)on 11-15-2021 Hemoglobin (Bld) [Mass/Vol] 14.6 g/dL 13.0-16.5 [facility] Work Phone: [phone] Blood lymphocytes/100 leukoc yteson 11-15-2021 Lymphocytes/100 WBC (Bld) 29.4 % 19-41 [facility] Work Phone: [phone] Blood monocytes/100 leukocyt eson 11-15-2021 Monocytes/100 WBC (Bld) 10.1 % 0-10 [facility] Work Phone: Blood platelet mean volumeon 11-15-2021 Platelet mean volume (Bld) [Entitic vol] 10.7 fL 6.2-12.0 [facility] Work Phone: Determination of erythrocyte mean corpuscular volume (MCV)on 11-15-2021 MCV (RBC) [Entitic vol] 91.9 fL 80-94 [facility] Work Phone: Hematocrit Auto (Bld) [Volum e fraction]on 11-15-2021 Hematocrit (Bld) [Volume fraction] 43.4 % 40-54 [facility] Work Phone: Laboratory - Hematology and Cell countson 11-15-2021 Erythrocyte distribution width (RBC) [Entitic vol] 41.9 fL 35.1-43.9 [facility] Work Phone: Erythrocyte distribution width (RBC) [Ratio] 12.4 % 11.6-14.6 [facility] Work Phone: Immature granulocytes/100 WBC (Bld) 0.400 % 0.0-0.9 [facility] Work Phone: Comment on above: IG% - Immature Granu locytes (promyelocytes, myelocytes and metamyelocytes) > 1% indicates that a LEFT SHIFT is Present. MCH (RBC) [Entitic mass] 30.9 pg 27.0-32.0 [facility] Work Phone: Nucleated RBC/100 WBC (Bld) [Ratio] 0 % 0-5 [facility] Work Phone: MCHC Auto (RBC) [Mass/Vol]on 11-15-2021 MCHC (RBC) [Mass/Vol] 33.6 g/dL 32-36 [facility] Work Phone: Platelets bldon 11-15-2021 Platelets (Bld) [#/Vol] 191 10*3/uL 150-450 [facility] Work Phone: Absolute lymphocyte counton 11-08-2021 Lymphocytes Auto (Unsp spec) [#/Vol] 1.97 10*3/uL 0.83-4.51 [facility] Work Phone: Basophil percentageon 2021 Basophils/100 WBC (Bld) 0.3 % 0-1 [facility] Work Phone: Eosinophils/100 WBC (Bld) 0.3 % 0-5 [facility] Work Phone: Neutrophils (Bld) [#/Vol] 5.1 10*3/uL 2.0-7.7 [facility] Work Phone: Neutrophils/100 WBC (Bld) 64.6 % 47-70 [facility] Work Phone: [phone] WBC (Bld) [#/Vol] 7.8 10*3/uL 4.4-11.0 [facility] Work Phone: [phone] Blood erythrocytes count (nu mber/volume)on 11-08-2021 RBC (Bld) [#/Vol] 4.53 10*6/uL 4.6-6.2 [facility] Work Phone: [phone] Blood hemoglobin measurement (mass/volume)on 11-08-2021 Hemoglobin (Bld) [Mass/Vol] 14.2 g/dL 13.0-16.5 [facility] Work Phone: Blood lymphocytes/100 leukoc yteson 11-08-2021 Lymphocytes/100 WBC (Bld) 25.2 % 19-41 [facility] Work Phone: Blood monocytes/100 leukocyt eson 11-08-2021 Monocytes/100 WBC (Bld) 9.3 % 0-10 [facility] Work Phone: Blood platelet mean volumeon 11-08-2021 Platelet mean volume (Bld) [Entitic vol] 10.9 fL 6.2-12.0 [facility] Work Phone: Determination of erythrocyte mean corpuscular volume (MCV)on 11-08-2021 MCV (RBC) [Entitic vol] 92.7 fL 80-94 [facility] Work Phone: Hematocrit Auto (Bld) [Volum e fraction]on 11-08-2021 Hematocrit (Bld) [Volume fraction] 42.0 % 40-54 [facility] Work Phone: Laboratory - Hematology and Cell countson 11-08-2021 Erythrocyte distribution width (RBC) [Entitic vol] 42.3 fL 35.1-43.9 [facility] Work Phone: Erythrocyte distribution width (RBC) [Ratio] 12.5 % 11.6-14.6 [facility] Work Phone: Immature granulocytes/100 WBC (Bld) 0.300 % 0.0-0.9 [facility] Work Phone: Comment on above: IG% - Immature Granu locytes (promyelocytes, myelocytes and metamyelocytes) > 1% indicates that a LEFT SHIFT is Present. MCH (RBC) [Entitic mass] 31.3 pg 27.0-32.0 [facility] Work Phone: Nucleated RBC/100 WBC (Bld) [Ratio] 0 % 0-5 [facility] Work Phone: MCHC Auto (RBC) [Mass/Vol]on 11-08-2021 MCHC (RBC) [Mass/Vol] 33.8 g/dL 32-36 [facility] Work Phone: Platelets bldon 11-08-2021 Platelets (Bld) [#/Vol] 207 10*3/uL 150-450 [facility] Work Phone: Absolute lymphocyte counton 10-25-2021 Lymphocytes Auto (Unsp spec) [#/Vol] 2.05 10*3/uL 0.83-4.51 [facility] Work Phone: Basophil percentageon 2021 Basophils/100 WBC (Bld) 0.4 % 0-1 [facility] Work Phone: Eosinophils/100 WBC (Bld) 0.3 % 0-5 [facility] Work Phone: Neutrophils (Bld) [#/Vol] 4.2 10*3/uL 2.0-7.7 [facility] Work Phone: Neutrophils/100 WBC (Bld) 61.3 % 47-70 [facility] Work Phone: WBC (Bld) [#/Vol] 6.8 10*3/uL 4.4-11.0 [facility] Work Phone: Blood erythrocytes count (nu mber/volume)on 10-25-2021 RBC (Bld) [#/Vol] 4.56 10*6/uL 4.6-6.2 [facility] Work Phone: Blood hemoglobin measurement (mass/volume)on 10-25-2021 Hemoglobin (Bld) [Mass/Vol] 13.9 g/dL 13.0-16.5 [facility] Work Phone: Blood lymphocytes/100 leukoc yteson 10-25-2021 Lymphocytes/100 WBC (Bld) 30.1 % 19-41 [facility] Work Phone: Blood monocytes/100 leukocyt eson 10-25-2021 Monocytes/100 WBC (Bld) 7.3 % 0-10 [facility] Work Phone: Blood platelet mean volumeon 10-25-2021 Platelet mean volume (Bld) [Entitic vol] 10.6 fL 6.2-12.0 [facility] Work Phone: Determination of erythrocyte mean corpuscular volume (MCV)on 10-25-2021 MCV (RBC) [Entitic vol] 91.0 fL 80-94 [facility] Work Phone: Hematocrit Auto (Bld) [Volum e fraction]on 10-25-2021 Hematocrit (Bld) [Volume fraction] 41.5 % 40-54 [facility] Work Phone: Laboratory - Hematology and Cell countson 10-25-2021 Erythrocyte distribution width (RBC) [Entitic vol] 41.7 fL 35.1-43.9 [facility] Work Phone: [phone] Erythrocyte distribution width (RBC) [Ratio] 12.6 % 11.6-14.6 [facility] Work Phone: [phone] Immature granulocytes/100 WBC (Bld) 0.600 % 0.0-0.9 [facility] Work Phone: Comment on above: IG% - Immature Granu locytes (promyelocytes, myelocytes and metamyelocytes) > 1% indicates that a LEFT SHIFT is Present. MCH (RBC) [Entitic mass] 30.5 pg 27.0-32.0 [facility] Work Phone: Nucleated RBC/100 WBC (Bld) [Ratio] 0 % 0-5 [facility] Work Phone: MCHC Auto (RBC) [Mass/Vol]on 10-25-2021 MCHC (RBC) [Mass/Vol] 33.5 g/dL 32-36 [facility] Work Phone: [phone] Platelets bldon 10-25-2021 Platelets (Bld) [#/Vol] 191 10*3/uL 150-450 [facility] Work Phone: Absolute lymphocyte counton 10-18-2021 Lymphocytes Auto (Unsp spec) [#/Vol] 1.66 10*3/uL 0.83-4.51 [facility] Work Phone: Basophil percentageon 2021 Basophils/100 WBC (Bld) 0.5 % 0-1 [facility] Work Phone: Eosinophils/100 WBC (Bld) 0.2 % 0-5 [facility] Work Phone: [phone] Neutrophils (Bld) [#/Vol] 4.3 10*3/uL 2.0-7.7 [facility] Work Phone: Neutrophils/100 WBC (Bld) 65.0 % 47-70 [facility] Work Phone: WBC (Bld) [#/Vol] 6.6 10*3/uL 4.4-11.0 [facility] Work Phone: Blood erythrocytes count (nu mber/volume)on 10-18-2021 RBC (Bld) [#/Vol] 4.57 10*6/uL 4.6-6.2 [facility]: Blood hemoglobin measurement (mass/volume)on 10-18-2021 Hemoglobin (Bld) [Mass/Vol] 14.1 g/dL 13.0-16.5 [facility] Work Phone: Blood lymphocytes/100 leukoc yteson 10-18-2021 Lymphocytes/100 WBC (Bld) 25.2 % 19-41 [facility] Work Phone: Blood monocytes/100 leukocyt eson 10-18-2021 Monocytes/100 WBC (Bld) 8.8 % 0-10 [facility] Work Phone: Blood platelet mean volumeon 10-18-2021 Platelet mean volume (Bld) [Entitic vol] 10.6 fL 6.2-12.0 [facility] Work Phone: Determination of erythrocyte mean corpuscular volume (MCV)on 10-18-2021 MCV (RBC) [Entitic vol] 91.7 fL 80-94 [facility] Work Phone: Hematocrit Auto (Bld) [Volum e fraction]on 10-18-2021 Hematocrit (Bld) [Volume fraction] 41.9 % 40-54 [facility] Work Phone: Laboratory - Hematology and Cell countson 10-18-2021 Erythrocyte distribution width (RBC) [Entitic vol] 41.6 fL 35.1-43.9 [facility] Work Phone: Erythrocyte distribution width (RBC) [Ratio] 12.5 % 11.6-14.6 [facility] Work Phone: [phone] Immature granulocytes/100 WBC (Bld) 0.300 % 0.0-0.9 [facility] Work Phone: Comment on above: IG% - Immature Granu locytes (promyelocytes, myelocytes and metamyelocytes) > 1% indicates that a LEFT SHIFT is Present. MCH (RBC) [Entitic mass] 30.9 pg 27.0-32.0 [facility] Work Phone: Nucleated RBC/100 WBC (Bld) [Ratio] 0 % 0-5 [facility] Work Phone: [phone] MCHC Auto (RBC) [Mass/Vol]on 10-18-2021 MCHC (RBC) [Mass/Vol] 33.7 g/dL 32-36 [facility] Work [facility]: Platelets bldon 10-18-2021 Platelets (Bld) [#/Vol] 185 10*3/uL 150-450 [facility] Work Phone: [phone] Absolute lymphocyte counton 10-11-2021 Lymphocytes Auto (Unsp spec) [#/Vol] 1.66 10*3/uL 0.83-4.51 [facility] Work Phone: Basophil percentageon 2021 Basophils/100 WBC (Bld) 0.5 % 0-1 [facility] Work Phone: Eosinophils/100 WBC (Bld) 0.1 % 0-5 [facility] Work Phone: Neutrophils (Bld) [#/Vol] 5.9 10*3/uL 2.0-7.7 [facility] Work Phone: Neutrophils/100 WBC (Bld) 70.8 % 47-70 [facility] Work Phone: WBC (Bld) [#/Vol] 8.3 10*3/uL 4.4-11.0 [facility] Work Phone: Blood erythrocytes count (nu mber/volume)on 10-11-2021 RBC (Bld) [#/Vol] 4.66 10*6/uL 4.6-6.2 [facility] Work Phone: Blood hemoglobin measurement (mass/volume)on 10-11-2021 Hemoglobin (Bld) [Mass/Vol] 14.1 g/dL 13.0-16.5 [facility] Work Phone: Blood lymphocytes/100 leukoc yteson 10-11-2021 Lymphocytes/100 WBC (Bld) 20.0 % 19-41 [facility] Work Phone: Blood monocytes/100 leukocyt eson 10-11-2021 Monocytes/100 WBC (Bld) 8.2 % 0-10 [facility] Work Phone: Blood platelet mean volumeon 10-11-2021 Platelet mean volume (Bld) [Entitic vol] 10.7 fL 6.2-12.0 [facility] Work Phone: Determination of erythrocyte mean corpuscular volume (MCV)on 10-11-2021 MCV (RBC) [Entitic vol] 91.8 fL 80-94 [facility] Work Phone: Hematocrit Auto (Bld) [Volum e fraction]on 10-11-2021 Hematocrit (Bld) [Volume fraction] 42.8 % 40-54 [facility] Work Phone: Laboratory - Hematology and Cell countson 10-11-2021 Erythrocyte distribution width (RBC) [Entitic vol] 42.8 fL 35.1-43.9 [facility] Work Phone: Erythrocyte distribution width (RBC) [Ratio] 12.8 % 11.6-14.6 [facility] Work Phone: Immature granulocytes/100 WBC (Bld) 0.400 % 0.0-0.9 [facility] Work Phone: Comment on above: IG% - Immature Granu locytes (promyelocytes, myelocytes and metamyelocytes) > 1% indicates that a LEFT SHIFT is Present. MCH (RBC) [Entitic mass] 30.3 pg 27.0-32.0 [facility] Work Phone: Nucleated RBC/100 WBC (Bld) [Ratio] 0 % 0-5 [facility] Work Phone: MCHC Auto (RBC) [Mass/Vol]on 10-11-2021 MCHC (RBC) [Mass/Vol] 32.9 g/dL 32-36 [facility] Work Phone: Platelets bldon 10-11-2021 Platelets (Bld) [#/Vol] 193 10*3/uL 150-450 [facility] Work Phone: Absolute lymphocyte counton 10-04-2021 Lymphocytes Auto (Unsp spec) [#/Vol] 1.97 10*3/uL 0.83-4.51 [facility] Work Phone: Basophil percentageon 2021 Basophils/100 WBC (Bld) 0.5 % 0-1 [facility] Work Phone: Eosinophils/100 WBC (Bld) 0.1 % 0-5 [facility] Work Phone: Neutrophils (Bld) [#/Vol] 5.0 10*3/uL 2.0-7.7 [facility] Work Phone: Neutrophils/100 WBC (Bld) 64.4 % 47-70 [facility] Work Phone: WBC (Bld) [#/Vol] 7.7 10*3/uL 4.4-11.0 [facility] erythrocytes count (nu mber/volume)on 10-04-2021 RBC (Bld) [#/Vol] 4.52 10*6/uL 4.6-6.2 [facility] Work Phone: Blood hemoglobin measurement (mass/volume)on 10-04-2021 Hemoglobin (Bld) [Mass/Vol] 13.9 g/dL 13.0-16.5 [facility] Work Phone: Blood lymphocytes/100 leukoc yteson 10-04-2021 Lymphocytes/100 WBC (Bld) 25.6 % 19-41 [facility] Work Phone: Blood monocytes/100 leukocyt eson 10-04-2021 Monocytes/100 WBC (Bld) 9.0 % 0-10 [facility] Work Phone: Blood platelet mean volumeon 10-04-2021 Platelet mean volume (Bld) [Entitic vol] 11.0 fL 6.2-12.0 [facility] Work Phone: Determination of erythrocyte mean corpuscular volume (MCV)on 10-04-2021 MCV (RBC) [Entitic vol] 91.4 fL 80-94 [facility] Work Phone: Hematocrit Auto (Bld) [Volum e fraction]on 10-04-2021 Hematocrit (Bld) [Volume fraction] 41.3 % 40-54 [facility] Work Phone: Laboratory - Hematology and Cell countson 10-04-2021 Erythrocyte distribution width (RBC) [Entitic vol] 42.2 fL 35.1-43.9 [facility] Work Phone: Erythrocyte distribution width (RBC) [Ratio] 12.8 % 11.6-14.6 [facility] Work Phone: Immature granulocytes/100 WBC (Bld) 0.400 % 0.0-0.9 [facility] Work Phone: Comment on above: IG% - Immature Granu locytes (promyelocytes, myelocytes and metamyelocytes) > 1% indicates that a LEFT SHIFT is Present. MCH (RBC) [Entitic mass] 30.8 pg 27.0-32.0 [facility] Work Phone: Nucleated RBC/100 WBC (Bld) [Ratio] 0 % 0-5 [facility] Work Phone: MCHC Auto (RBC) [Mass/Vol]on 10-04-2021 MCHC (RBC) [Mass/Vol] 33.7 g/dL 32-36 [facility] Work Phone: Platelets bldon 10-04-2021 Platelets (Bld) [#/Vol] 179 10*3/uL 150-450 [facility] Work Phone: [phone] Absolute lymphocyte counton 09-28-2021 Lymphocytes Auto (Unsp spec) [#/Vol] 2.10 10*3/uL 0.83-4.51 [facility] Work Phone: Basophil percentageon 2021 Basophils/100 WBC (Bld) 0.4 % 0-1 [facility] Work Phone: Eosinophils/100 WBC (Bld) 0.3 % 0-5 [facility] Work Phone: Neutrophils (Bld) [#/Vol] 4.3 10*3/uL 2.0-7.7 [facility] Work Phone: Neutrophils/100 WBC (Bld) 59.9 % 47-70 [facility] Work Phone: [phone] WBC (Bld) [#/Vol] 7.2 10*3/uL 4.4-11.0 [facility] Work Phone: Blood erythrocytes count (nu mber/volume)on 09-28-2021 RBC (Bld) [#/Vol] 4.34 10*6/uL 4.6-6.2 [facility]: Blood hemoglobin measurement (mass/volume)on 09-28-2021 Hemoglobin (Bld) [Mass/Vol] 13.3 g/dL 13.0-16.5 [facility] Work Phone: Blood lymphocytes/100 leukoc yteson 09-28-2021 Lymphocytes/100 WBC (Bld) 29.3 % 19-41 [facility] Work Phone: Blood monocytes/100 leukocyt eson 09-28-2021 Monocytes/100 WBC (Bld) 9.8 % 0-10 [facility] Work Phone: Blood platelet mean volumeon 09-28-2021 Platelet mean volume (Bld) [Entitic vol] 10.7 fL 6.2-12.0 [facility] Work Phone: Determination of erythrocyte mean corpuscular volume (MCV)on 09-28-2021 MCV (RBC) [Entitic vol] 91.2 fL 80-94 [facility] Work Phone: Hematocrit Auto (Bld) [Volum e fraction]on 09-28-2021 Hematocrit (Bld) [Volume fraction] 39.6 % 40-54 [facility] Work Phone: Laboratory - Hematology and Cell countson 09-28-2021 Erythrocyte distribution width (RBC) [Entitic vol] 41.8 fL 35.1-43.9 [facility] Work Phone: Erythrocyte distribution width (RBC) [Ratio] 12.6 % 11.6-14.6 [facility] Work Phone: Immature granulocytes/100 WBC (Bld) 0.300 % 0.0-0.9 [facility] Work Phone: Comment on above: IG% - Immature Granu locytes (promyelocytes, myelocytes and metamyelocytes) > 1% indicates that a LEFT SHIFT is Present. MCH (RBC) [Entitic mass] 30.6 pg 27.0-32.0 [facility] Work Phone: Nucleated RBC/100 WBC (Bld) [Ratio] 0 % 0-5 [facility] Work Phone: MCHC Auto (RBC) [Mass/Vol]on 09-28-2021 MCHC (RBC) [Mass/Vol] 33.6 g/dL 32-36 [facility] Work [facility]: Platelets bldon 09-28-2021 Platelets (Bld) [#/Vol] 181 10*3/uL 150-450 [facility] Work Phone: [phone] Absolute lymphocyte counton 09-20-2021 Lymphocytes Auto (Unsp spec) [#/Vol] 1.79 10*3/uL 0.83-4.51 [facility] Work Phone: Basophil percentageon 2021 Basophils/100 WBC (Bld) 0.4 % 0-1 [facility] Work Phone: [phone] Eosinophils/100 WBC (Bld) 0.3 % 0-5 [facility] Work Phone: [phone] Neutrophils (Bld) [#/Vol] 4.1 10*3/uL 2.0-7.7 [facility] Work Phone: [phone] Neutrophils/100 WBC (Bld) 61.3 % 47-70 [facility] Work Phone: [phone] WBC (Bld) [#/Vol] 6.7 10*3/uL 4.4-11.0 [facility] Blood erythrocytes count (nu mber/volume)on 09-20-2021 RBC (Bld) [#/Vol] 4.32 10*6/uL 4.6-6.2 [facility] Work [facility]: Blood hemoglobin measurement (mass/volume)on 09-20-2021 Hemoglobin (Bld) [Mass/Vol] 13.6 g/dL 13.0-16.5 [facility] Work Phone: Blood lymphocytes/100 leukoc yteson 09-20-2021 Lymphocytes/100 WBC (Bld) 26.8 % 19-41 [facility] Work Phone: Blood monocytes/100 leukocyt eson 09-20-2021 Monocytes/100 WBC (Bld) 10.8 % 0-10 [facility] Work Phone: Blood platelet mean volumeon 09-20-2021 Platelet mean volume (Bld) [Entitic vol] 10.7 fL 6.2-12.0 [facility] Work Phone: Determination of erythrocyte mean corpuscular volume (MCV)on 09-20-2021 MCV (RBC) [Entitic vol] 93.1 fL 80-94 [facility] Work Phone: Hematocrit Auto (Bld) [Volum e fraction]on 09-20-2021 Hematocrit (Bld) [Volume fraction] 40.2 % 40-54 [facility] Work Phone: Laboratory - Hematology and Cell countson 09-20-2021 Erythrocyte distribution width (RBC) [Entitic vol] 43.0 fL 35.1-43.9 [facility] Work Phone: Erythrocyte distribution width (RBC) [Ratio] 12.6 % 11.6-14.6 [facility] Work Phone: Immature granulocytes/100 WBC (Bld) 0.400 % 0.0-0.9 [facility] Work Phone: Comment on above: IG% - Immature Granu locytes (promyelocytes, myelocytes and metamyelocytes) > 1% indicates that a LEFT SHIFT is Present. MCH (RBC) [Entitic mass] 31.5 pg 27.0-32.0 [facility] Work Phone: Nucleated RBC/100 WBC (Bld) [Ratio] 0 % 0-5 [facility] Work Phone: MCHC Auto (RBC) [Mass/Vol]on 09-20-2021 MCHC (RBC) [Mass/Vol] 33.8 g/dL 32-36 [facility] Work Phone: Platelets bldon 09-20-2021 Platelets (Bld) [#/Vol] 170 10*3/uL 150-450 [facility] Work Phone: Absolute lymphocyte counton 09-13-2021 Lymphocytes Auto (Unsp spec) [#/Vol] 1.85 10*3/uL 0.83-4.51 [facility] Work Phone: Basophil percentageon 2021 Basophils/100 WBC (Bld) 0.6 % 0-1 [facility] Work Phone: Eosinophils/100 WBC (Bld) 0.3 % 0-5 [facility] Work Phone: Neutrophils (Bld) [#/Vol] 4.3 10*3/uL 2.0-7.7 [facility] Work Phone: Neutrophils/100 WBC (Bld) 63.1 % 47-70 [facility] Work Phone: WBC (Bld) [#/Vol] 6.7 10*3/uL 4.4-11.0 [facility] Work Phone: Blood erythrocytes count (nu mber/volume)on 09-13-2021 RBC (Bld) [#/Vol] 4.63 10*6/uL 4.6-6.2 [facility] Work [facility]: Blood hemoglobin measurement (mass/volume)on 09-13-2021 Hemoglobin (Bld) [Mass/Vol] 14.2 g/dL 13.0-16.5 [facility] Work Phone: Blood lymphocytes/100 leukoc yteson 09-13-2021 Lymphocytes/100 WBC (Bld) 27.5 % 19-41 [facility] Work Phone: Blood monocytes/100 leukocyt eson 09-13-2021 Monocytes/100 WBC (Bld) 8.2 % 0-10 [facility] Work Phone: Blood platelet mean volumeon 09-13-2021 Platelet mean volume (Bld) [Entitic vol] 11.0 fL 6.2-12.0 [facility] Work Phone: Determination of erythrocyte mean corpuscular volume (MCV)on 09-13-2021 MCV (RBC) [Entitic vol] 93.5 fL 80-94 [facility] Work Phone: Hematocrit Auto (Bld) [Volum e fraction]on 09-13-2021 Hematocrit (Bld) [Volume fraction] 43.3 % 40-54 [facility] Work Phone: Laboratory - Hematology and Cell countson 09-13-2021 Erythrocyte distribution width (RBC) [Entitic vol] 43.0 fL 35.1-43.9 [facility] Work Phone: Erythrocyte distribution width (RBC) [Ratio] 12.6 % 11.6-14.6 [facility] Work Phone: Immature granulocytes/100 WBC (Bld) 0.300 % 0.0-0.9 [facility] Work Phone: Comment on above: IG% - Immature Granu locytes (promyelocytes, myelocytes and metamyelocytes) > 1% indicates that a LEFT SHIFT is Present. MCH (RBC) [Entitic mass] 30.7 pg 27.0-32.0 [facility] Work Phone: Nucleated RBC/100 WBC (Bld) [Ratio] 0 % 0-5 [facility] Work Phone: MCHC Auto (RBC) [Mass/Vol]on 09-13-2021 MCHC (RBC) [Mass/Vol] 32.8 g/dL 32-36 [facility] Work Phone: Platelets bldon 09-13-2021 Platelets (Bld) [#/Vol] 188 10*3/uL 150-450 [facility] Work Phone: Absolute lymphocyte counton 09-06-2021 Lymphocytes Auto (Unsp spec) [#/Vol] 1.86 10*3/uL 0.83-4.51 [facility] Work Phone: Basophil percentageon 2021 Basophils/100 WBC (Bld) 0.7 % 0-1 [facility] Work Phone: Eosinophils/100 WBC (Bld) 0.3 % 0-5 [facility] Work Phone: Neutrophils (Bld) [#/Vol] 4.4 10*3/uL 2.0-7.7 [facility] Work Phone: Neutrophils/100 WBC (Bld) 62.6 % 47-70 [facility] Work Phone: WBC (Bld) [#/Vol] 7.0 10*3/uL 4.4-11.0 [facility] Work Phone: Blood erythrocytes count (nu mber/volume)on 09-06-2021 RBC (Bld) [#/Vol] 4.51 10*6/uL 4.6-6.2 [facility] Work Phone: Blood hemoglobin measurement (mass/volume)on 09-06-2021 Hemoglobin (Bld) [Mass/Vol] 13.8 g/dL 13.0-16.5 [facility] Work Phone: Blood lymphocytes/100 leukoc yteson 09-06-2021 Lymphocytes/100 WBC (Bld) 26.5 % 19-41 [facility] Work Phone: Blood monocytes/100 leukocyt eson 09-06-2021 Monocytes/100 WBC (Bld) 9.5 % 0-10 [facility] Work Phone: Blood platelet mean volumeon 09-06-2021 Platelet mean volume (Bld) [Entitic vol] 10.7 fL 6.2-12.0 [facility] Work Phone: Determination of erythrocyte mean corpuscular volume (MCV)on 09-06-2021 MCV (RBC) [Entitic vol] 92.9 fL 80-94 [facility] Work Phone: Hematocrit Auto (Bld) [Volum e fraction]on 09-06-2021 Hematocrit (Bld) [Volume fraction] 41.9 % 40-54 [facility] Work Phone: Laboratory - Hematology and Cell countson 09-06-2021 Erythrocyte distribution width (RBC) [Entitic vol] 43.0 fL 35.1-43.9 [facility] Work Phone: Erythrocyte distribution width (RBC) [Ratio] 12.7 % 11.6-14.6 [facility] Work Phone: Immature granulocytes/100 WBC (Bld) 0.400 % 0.0-0.9 [facility] Work Phone: [phone] Comment on above: IG% - Immature Granu locytes (promyelocytes, myelocytes and metamyelocytes) > 1% indicates that a LEFT SHIFT is Present. MCH (RBC) [Entitic mass] 30.6 pg 27.0-32.0 [facility] Work Phone: [phone] Nucleated RBC/100 WBC (Bld) [Ratio] 0 % 0-5 [facility] Work Phone: [phone] MCHC Auto (RBC) [Mass/Vol]on 09-06-2021 MCHC (RBC) [Mass/Vol] 32.9 g/dL 32-36 [facility] Work Phone: Platelets bldon 09-06-2021 Platelets (Bld) [#/Vol] 189 10*3/uL 150-450 [facility] Work Phone: [phone] Absolute lymphocyte counton 08-30-2021 Lymphocytes Auto (Unsp spec) [#/Vol] 1.44 10*3/uL 0.83-4.51 [facility] Work Phone: Basophil percentageon 2021 Basophils/100 WBC (Bld) 0.3 % 0-1 [facility] Work Phone: Eosinophils/100 WBC (Bld) 0.2 % 0-5 [facility] Work Phone: Neutrophils (Bld) [#/Vol] 9.6 10*3/uL 2.0-7.7 [facility] Work Phone: [phone] Neutrophils/100 WBC (Bld) 80.4 % 47-70 [facility] Work Phone: WBC (Bld) [#/Vol] 12.0 10*3/uL 4.4-11.0 [facility] Work Phone: Blood erythrocytes count (nu mber/volume)on 08-30-2021 RBC (Bld) [#/Vol] 4.52 10*6/uL 4.6-6.2 [facility] Work [facility]: Blood hemoglobin measurement (mass/volume)on 08-30-2021 Hemoglobin (Bld) [Mass/Vol] 13.9 g/dL 13.0-16.5 [facility] Work Phone: Blood lymphocytes/100 leukoc yteson 08-30-2021 Lymphocytes/100 WBC (Bld) 12.0 % 19-41 [facility] Work Phone: Blood monocytes/100 leukocyt eson 08-30-2021 Monocytes/100 WBC (Bld) 6.7 % 0-10 [facility] Work Phone: Blood platelet mean volumeon 08-30-2021 Platelet mean volume (Bld) [Entitic vol] 11.3 fL 6.2-12.0 [facility] Work Phone: Determination of erythrocyte mean corpuscular volume (MCV)on 08-30-2021 MCV (RBC) [Entitic vol] 92.7 fL 80-94 [facility] Work Phone: Hematocrit Auto (Bld) [Volum e fraction]on 08-30-2021 Hematocrit (Bld) [Volume fraction] 41.9 % 40-54 [facility] Work Phone: Laboratory - Hematology and Cell countson 08-30-2021 Erythrocyte distribution width (RBC) [Entitic vol] 42.6 fL 35.1-43.9 [facility] Work Phone: Erythrocyte distribution width (RBC) [Ratio] 12.6 % 11.6-14.6 [facility] Work Phone: Immature granulocytes/100 WBC (Bld) 0.400 % 0.0-0.9 [facility] Work Phone: Comment on above: IG% - Immature Granu locytes (promyelocytes, myelocytes and metamyelocytes) > 1% indicates that a LEFT SHIFT is Present. MCH (RBC) [Entitic mass] 30.8 pg 27.0-32.0 [facility] Work Phone: Nucleated RBC/100 WBC (Bld) [Ratio] 0 % 0-5 [facility] Work Phone: MCHC Auto (RBC) [Mass/Vol]on 08-30-2021 MCHC (RBC) [Mass/Vol] 33.2 g/dL 32-36 [facility] Work Phone: Platelets bldon 08-30-2021 Platelets (Bld) [#/Vol] 200 10*3/uL 150-450 [facility] Work Phone: [phone] Absolute lymphocyte counton 08-23-2021 Lymphocytes Auto (Unsp spec) [#/Vol] 1.91 10*3/uL 0.83-4.51 [facility] Work Phone: Basophil percentageon 2021 Basophils/100 WBC (Bld) 0.4 % 0-1 [facility] Work Phone: Eosinophils/100 WBC (Bld) 0.3 % 0-5 [facility] Work Phone: Neutrophils (Bld) [#/Vol] 4.2 10*3/uL 2.0-7.7 [facility] Work Phone: Neutrophils/100 WBC (Bld) 62.3 % 47-70 [facility] Work Phone: WBC (Bld) [#/Vol] 6.8 10*3/uL 4.4-11.0 [facility] Work Phone: Blood erythrocytes count (nu mber/volume)on 08-23-2021 RBC (Bld) [#/Vol] 4.46 10*6/uL 4.6-6.2 [facility] Work [facility]: Blood hemoglobin measurement (mass/volume)on 08-23-2021 Hemoglobin (Bld) [Mass/Vol] 13.7 g/dL 13.0-16.5 [facility] Work Phone: Blood lymphocytes/100 leukoc yteson 08-23-2021 Lymphocytes/100 WBC (Bld) 28.3 % 19-41 [facility] Work Phone: Blood monocytes/100 leukocyt eson 08-23-2021 Monocytes/100 WBC (Bld) 8.1 % 0-10 [facility] Work Phone: Blood platelet mean volumeon 08-23-2021 Platelet mean volume (Bld) [Entitic vol] 10.6 fL 6.2-12.0 [facility] Work Phone: Determination of erythrocyte mean corpuscular volume (MCV)on 08-23-2021 MCV (RBC) [Entitic vol] 93.0 fL 80-94 [facility] Work Phone: Hematocrit Auto (Bld) [Volum e fraction]on 08-23-2021 Hematocrit (Bld) [Volume fraction] 41.5 % 40-54 [facility] Work Phone: Laboratory - Hematology and Cell countson 08-23-2021 Erythrocyte distribution width (RBC) [Entitic vol] 42.4 fL 35.1-43.9 [facility] Work Phone: Erythrocyte distribution width (RBC) [Ratio] 12.5 % 11.6-14.6 [facility] Work Phone: Immature granulocytes/100 WBC (Bld) 0.600 % 0.0-0.9 [facility] Work Phone: Comment on above: IG% - Immature Granu locytes (promyelocytes, myelocytes and metamyelocytes) > 1% indicates that a LEFT SHIFT is Present. MCH (RBC) [Entitic mass] 30.7 pg 27.0-32.0 [facility] Work Phone: Nucleated RBC/100 WBC (Bld) [Ratio] 0 % 0-5 [facility] Work Phone: MCHC Auto (RBC) [Mass/Vol]on 08-23-2021 MCHC (RBC) [Mass/Vol] 33.0 g/dL 32-36 [facility] Work Phone: Platelets bldon 08-23-2021 Platelets (Bld) [#/Vol] 198 10*3/uL 150-450 [facility] Work Phone: Basophil percentageon 2021 Basophil percentage 0 SEEN /hpf 0-5 [facility] Work Phone: Bilirubin Test strip Ql (U)o n 08-18-2021 Bilirubin Ql (U) Negative Negative [facility] Work Phone: Culture, urineon 08-18-2021 Bacteria identified Cx Nom (U) Culture exhibits no growth. [facility] Work Phone: Ketones Test strip Ql (U)on 08-18-2021 Ketones Ql (U) Negative Negative [facility] Work Phone: Mucus LM Ql (Urine sed)on Mucus Ql (Urine sed) 0 SEEN /hpf [facility] Work Phone: Nitrite Test strip Ql (U)on 08-18-2021 Nitrite Ql (U) Negative Negative [facility] Work Phone: Protein Test strip Ql (U)on 08-18-2021 Protein Ql (U) Negative Negative [facility] Work Phone: Squamous epithelial cells de tection in urine sediment by light microscopyon 08-18-2021 Epithelial cells.squamous LM Ql (Urine sed) 0 SEEN /hpf 0-5 [facility] Work Phone: Urine blood detectionon - RBC Ql (U) Negative Negative [facility] Work Phone: RBC Ql (U) 0 SEEN /hpf 0-5 [facility] Work Phone: Urine clarityon 08-18-2021 Clarity (U) Clear Clear [facility] Work Phone: Urine color determinationon 08-18-2021 Color (U) Yellow Yellow [facility] Work Phone: Urine glucose detectionon Glucose Ql (U) Normal mg/dl Normal [facility] Work Phone: Urine leukocyte esterase det ection by dipstickon 08-18-2021 Leukocyte esterase Test strip Ql (U) Negative Negative [facility] Work Phone: Urine pHon 08-18-2021 pH (U) 7.0 [pH] 5.0 - 8.0 [facility] Work Phone: Urine sediment bacteria coun t by microscopy (number/high power field)on 08-18-2021 Bacteria LM.HPF (Urine sed) [#/Area] 0 /[HPF] None Seen [facility] Work Phone: Urine specific gravity measu rementon 08-18-2021 Specific gravity (U) [Rel density] 1.010 1.002-1.030 [facility] Work Phone: Urobilinogen Auto test strip Ql (U)on 08-18-2021 Urobilinogen Ql (U) 4 mg/dl Normal [facility] Work Phone: Absolute lymphocyte counton 08-16-2021 Lymphocytes Auto (Unsp spec) [#/Vol] 1.71 10*3/uL 0.83-4.51 [facility] Work Phone: Basophil percentageon 2021 Basophils/100 WBC (Bld) 0.3 % 0-1 [facility] Work Phone: Eosinophils/100 WBC (Bld) 0.2 % 0-5 [facility] Work Phone: Neutrophils (Bld) [#/Vol] 8.6 10*3/uL 2.0-7.7 [facility] Work Phone: Neutrophils/100 WBC (Bld) 76.8 % 47-70 [facility] Work Phone: WBC (Bld) [#/Vol] 11.2 10*3/uL 4.4-11.0 [facility] Work Phone: Blood erythrocytes count (nu mber/volume)on 08-16-2021 RBC (Bld) [#/Vol] 4.42 10*6/uL 4.6-6.2 [facility] Work Phone: Blood hemoglobin measurement (mass/volume)on 08-16-2021 Hemoglobin (Bld) [Mass/Vol] 13.4 g/dL 13.0-16.5 [facility] Work Phone: Blood lymphocytes/100 leukoc yteson 08-16-2021 Lymphocytes/100 WBC (Bld) 15.2 % 19-41 [facility] Work Phone: Blood monocytes/100 leukocyt eson 08-16-2021 Monocytes/100 WBC (Bld) 7.1 % 0-10 [facility] Work Phone: Blood platelet mean volumeon 08-16-2021 Platelet mean volume (Bld) [Entitic vol] 11.0 fL 6.2-12.0 [facility] Work Phone: Determination of erythrocyte mean corpuscular volume (MCV)on 08-16-2021 MCV (RBC) [Entitic vol] 91.9 fL 80-94 [facility] Work Phone: Hematocrit Auto (Bld) [Volum e fraction]on 08-16-2021 Hematocrit (Bld) [Volume fraction] 40.6 % 40-54 [facility] Work Phone: Laboratory - Hematology and Cell countson 08-16-2021 Erythrocyte distribution width (RBC) [Entitic vol] 43.0 fL 35.1-43.9 [facility] Work Phone: [phone] Erythrocyte distribution width (RBC) [Ratio] 12.7 % 11.6-14.6 [facility] Work Phone: Immature granulocytes/100 WBC (Bld) 0.400 % 0.0-0.9 [facility] Work Phone: Comment on above: IG% - Immature Granu locytes (promyelocytes, myelocytes and metamyelocytes) > 1% indicates that a LEFT SHIFT is Present. MCH (RBC) [Entitic mass] 30.3 pg 27.0-32.0 [facility] Work Phone: Nucleated RBC/100 WBC (Bld) [Ratio] 0 % 0-5 [facility] Work Phone: MCHC Auto (RBC) [Mass/Vol]on 08-16-2021 MCHC (RBC) [Mass/Vol] 33.0 g/dL 32-36 [facility]: Platelets bldon 08-16-2021 Platelets (Bld) [#/Vol] 187 10*3/uL 150-450 [facility] Work Phone: Absolute lymphocyte counton 08-09-2021 Lymphocytes Auto (Unsp spec) [#/Vol] 1.78 10*3/uL 0.83-4.51 [facility] Work Phone: Basophil percentageon 2021 Basophils/100 WBC (Bld) 0.5 % 0-1 [facility] Work Phone: Eosinophils/100 WBC (Bld) 0.1 % 0-5 [facility] Work Phone: Neutrophils (Bld) [#/Vol] 6.0 10*3/uL 2.0-7.7 [facility] Work Phone: Neutrophils/100 WBC (Bld) 71.3 % 47-70 [facility] Work Phone: WBC (Bld) [#/Vol] 8.4 10*3/uL 4.4-11.0 [facility]: Blood erythrocytes count (nu mber/volume)on 08-09-2021 RBC (Bld) [#/Vol] 4.37 10*6/uL 4.6-6.2 [facility]: Blood [facility] measurement (mass/volume)on 08-09-2021 Hemoglobin (Bld) [Mass/Vol] 13.5 g/dL 13.0-16.5 [facility] Work Phone: Blood lymphocytes/100 leukoc yteson 08-09-2021 Lymphocytes/100 WBC (Bld) 21.2 % 19-41 [facility] Work Phone: Blood monocytes/100 leukocyt eson 08-09-2021 Monocytes/100 WBC (Bld) 6.5 % 0-10 [facility] Work Phone: Blood platelet mean volumeon 08-09-2021 Platelet mean volume (Bld) [Entitic vol] 11.1 fL 6.2-12.0 [facility] Work Phone: Determination of erythrocyte mean corpuscular volume (MCV)on 08-09-2021 MCV (RBC) [Entitic vol] 91.3 fL 80-94 [facility] Work Phone: Hematocrit Auto (Bld) [Volum e fraction]on 08-09-2021 Hematocrit (Bld) [Volume fraction] 39.9 % 40-54 [facility] Work Phone: Laboratory - Hematology and Cell countson 08-09-2021 Erythrocyte distribution width (RBC) [Entitic vol] 41.4 fL 35.1-43.9 [facility] Work Phone: Erythrocyte distribution width (RBC) [Ratio] 12.5 % 11.6-14.6 [facility] Work Phone: Immature granulocytes/100 WBC (Bld) 0.400 % 0.0-0.9 [facility] Work Phone: Comment on above: IG% - Immature Granu locytes (promyelocytes, myelocytes and metamyelocytes) > 1% indicates that a LEFT SHIFT is Present. MCH (RBC) [Entitic mass] 30.9 pg 27.0-32.0 [facility] Work Phone: [phone] Nucleated RBC/100 WBC (Bld) [Ratio] 0 % 0-5 [facility] Work Phone: [phone] MCHC Auto (RBC) [Mass/Vol]on 08-09-2021 MCHC (RBC) [Mass/Vol] 33.8 g/dL 32-36 [facility] Work Phone: [phone] Platelets bldon 08-09-2021 Platelets (Bld) [#/Vol] 177 10*3/uL 150-450 [facility] Work Phone: [phone] Absolute lymphocyte counton 08-02-2021 Lymphocytes Auto (Unsp spec) [#/Vol] 1.69 10*3/uL 0.83-4.51 [facility] Work Phone: Basophil percentageon 2021 Basophils/100 WBC (Bld) 0.3 % 0-1 [facility] Work Phone: Eosinophils/100 WBC (Bld) 0.3 % 0-5 [facility] Work Phone: [phone] Neutrophils (Bld) [#/Vol] 3.8 10*3/uL 2.0-7.7 [facility] Work Phone: Neutrophils/100 WBC (Bld) 61.9 % 47-70 [facility] Work Phone: WBC (Bld) [#/Vol] 6.1 10*3/uL 4.4-11.0 [facility] Work Phone: [phone] Blood erythrocytes count (nu mber/volume)on 08-02-2021 RBC (Bld) [#/Vol] 4.54 10*6/uL 4.6-6.2 [facility] Work Phone: [phone] Blood hemoglobin measurement (mass/volume)on 08-02-2021 Hemoglobin (Bld) [Mass/Vol] 13.8 g/dL 13.0-16.5 [facility] Work Phone: Blood lymphocytes/100 leukoc yteson 08-02-2021 Lymphocytes/100 WBC (Bld) 27.7 % 19-41 [facility] Work Phone: Blood monocytes/100 leukocyt eson 08-02-2021 Monocytes/100 WBC (Bld) 9.5 % 0-10 [facility] Work Phone: Blood platelet mean volumeon 08-02-2021 Platelet mean volume (Bld) [Entitic vol] 11.2 fL 6.2-12.0 [facility] Work Phone: Determination of erythrocyte mean corpuscular volume (MCV)on 08-02-2021 MCV (RBC) [Entitic vol] 90.1 fL 80-94 [facility] Work Phone: Hematocrit Auto (Bld) [Volum e fraction]on 08-02-2021 Hematocrit (Bld) [Volume fraction] 40.9 % 40-54 [facility] Work Phone: Laboratory - Hematology and Cell countson 08-02-2021 Erythrocyte distribution width (RBC) [Entitic vol] 40.3 fL 35.1-43.9 [facility] Work Phone: Erythrocyte distribution width (RBC) [Ratio] 12.4 % 11.6-14.6 [facility] Work Phone: Immature granulocytes/100 WBC (Bld) 0.300 % 0.0-0.9 [facility] Work Phone: Comment on above: IG% - Immature Granu locytes (promyelocytes, myelocytes and metamyelocytes) > 1% indicates that a LEFT SHIFT is Present. MCH (RBC) [Entitic mass] 30.4 pg 27.0-32.0 [facility] Work Phone: Nucleated RBC/100 WBC (Bld) [Ratio] 0 % 0-5 [facility] Work Phone: MCHC Auto (RBC) [Mass/Vol]on 08-02-2021 MCHC (RBC) [Mass/Vol] 33.7 g/dL 32-36 [facility] Work Phone: Platelets bldon 08-02-2021 Platelets (Bld) [#/Vol] 192 10*3/uL 150-450 [facility] Work Phone: [phone] Absolute lymphocyte counton 07-26-2021 Lymphocytes Auto (Unsp spec) [#/Vol] 1.83 10*3/uL 0.83-4.51 [facility] Work Phone: Basophil percentageon 2021 Basophils/100 WBC (Bld) 0.5 % 0-1 [facility] Work Phone: Eosinophils/100 WBC (Bld) 0.3 % 0-5 [facility] Work Phone: Neutrophils (Bld) [#/Vol] 3.3 10*3/uL 2.0-7.7 [facility] Work Phone: Neutrophils/100 WBC (Bld) 58.1 % 47-70 [facility] Work Phone: [phone] WBC (Bld) [#/Vol] 5.7 10*3/uL 4.4-11.0 [facility] Work Phone: Blood erythrocytes count (nu mber/volume)on 07-26-2021 RBC (Bld) [#/Vol] 4.21 10*6/uL 4.6-6.2 [facility]: Blood hemoglobin measurement (mass/volume)on 07-26-2021 Hemoglobin (Bld) [Mass/Vol] 12.9 g/dL 13.0-16.5 [facility] Work Phone: Blood lymphocytes/100 leukoc yteson 07-26-2021 Lymphocytes/100 WBC (Bld) 31.9 % 19-41 [facility] Work Phone: Blood monocytes/100 leukocyt eson 07-26-2021 Monocytes/100 WBC (Bld) 8.9 % 0-10 [facility] Work Phone: Blood platelet mean volumeon 07-26-2021 Platelet mean volume (Bld) [Entitic vol] 11.5 fL 6.2-12.0 [facility] Work Phone: Determination of erythrocyte mean corpuscular volume (MCV)on 07-26-2021 MCV (RBC) [Entitic vol] 90.7 fL 80-94 [facility] Work Phone: Hematocrit Auto (Bld) [Volum e fraction]on 07-26-2021 Hematocrit (Bld) [Volume fraction] 38.2 % 40-54 [facility] Work Phone: Laboratory - Hematology and Cell countson 07-26-2021 Erythrocyte distribution width (RBC) [Entitic vol] 41.2 fL 35.1-43.9 [facility] Work Phone: Erythrocyte distribution width (RBC) [Ratio] 12.5 % 11.6-14.6 [facility] Work Phone: Immature granulocytes/100 WBC (Bld) 0.300 % 0.0-0.9 [facility] Work Phone: Comment on above: IG% - Immature Granu locytes (promyelocytes, myelocytes and metamyelocytes) > 1% indicates that a LEFT SHIFT is Present. MCH (RBC) [Entitic mass] 30.6 pg 27.0-32.0 [facility] Work Phone: Nucleated RBC/100 WBC (Bld) [Ratio] 0 % 0-5 [facility] Work Phone: MCHC Auto (RBC) [Mass/Vol]on 07-26-2021 MCHC (RBC) [Mass/Vol] 33.8 g/dL 32-36 [facility]: Platelets bldon 07-26-2021 Platelets (Bld) [#/Vol] 180 10*3/uL 150-450 [facility] Work Phone: Absolute lymphocyte counton 07-19-2021 Lymphocytes Auto (Unsp spec) [#/Vol] 2.04 10*3/uL 0.83-4.51 [facility] Work Phone: Basophil percentageon 2021 Basophils/100 WBC (Bld) 0.3 % 0-1 [facility] Work Phone: Eosinophils/100 WBC (Bld) 0.4 % 0-5 [facility] Work Phone: Neutrophils (Bld) [#/Vol] 4.0 10*3/uL 2.0-7.7 [facility] Work Phone: Neutrophils/100 WBC (Bld) 59.2 % 47-70 [facility] Work Phone: WBC (Bld) [#/Vol] 6.7 10*3/uL 4.4-11.0 [facility] Work Phone: Blood erythrocytes count (nu mber/volume)on 07-19-2021 RBC (Bld) [#/Vol] 4.53 10*6/uL 4.6-6.2 [facility] Work Phone: Blood hemoglobin measurement (mass/volume)on 07-19-2021 Hemoglobin (Bld) [Mass/Vol] 14.1 g/dL 13.0-16.5 [facility] Work Phone: Blood lymphocytes/100 leukoc yteson 07-19-2021 Lymphocytes/100 WBC (Bld) 30.5 % 19-41 [facility] Work Phone: [phone] Blood monocytes/100 leukocyt eson 07-19-2021 Monocytes/100 WBC (Bld) 9.0 % 0-10 [facility] Work Phone: Blood platelet mean volumeon 07-19-2021 Platelet mean volume (Bld) [Entitic vol] 11.4 fL 6.2-12.0 [facility] Work Phone: Determination of erythrocyte mean corpuscular volume (MCV)on 07-19-2021 MCV (RBC) [Entitic vol] 90.5 fL 80-94 [facility] Work Phone: Hematocrit Auto (Bld) [Volum e fraction]on 07-19-2021 Hematocrit (Bld) [Volume fraction] 41.0 % 40-54 [facility] Work Phone: Laboratory - Hematology and Cell countson 07-19-2021 Erythrocyte distribution width (RBC) [Entitic vol] 41.1 fL 35.1-43.9 [facility] Work Phone: Erythrocyte distribution width (RBC) [Ratio] 12.5 % 11.6-14.6 [facility] Work Phone: Immature granulocytes/100 WBC (Bld) 0.600 % 0.0-0.9 [facility] Work Phone: Comment on above: IG% - Immature Granu locytes (promyelocytes, myelocytes and metamyelocytes) > 1% indicates that a LEFT SHIFT is Present. MCH (RBC) [Entitic mass] 31.1 pg 27.0-32.0 [facility] Work Phone: Nucleated RBC/100 WBC (Bld) [Ratio] 0 % 0-5 [facility] Work Phone: MCHC Auto (RBC) [Mass/Vol]on 07-19-2021 MCHC (RBC) [Mass/Vol] 34.4 g/dL 32-36 [facility] Work [facility]: Platelets bldon 07-19-2021 Platelets (Bld) [#/Vol] 193 10*3/uL 150-450 [facility] Work Phone: Absolute lymphocyte counton 07-12-2021 Lymphocytes Auto (Unsp spec) [#/Vol] 1.42 10*3/uL 0.83-4.51 [facility] Work Phone: Basophil percentageon 2021 Basophils/100 WBC (Bld) 0.6 % 0-1 [facility] Work Phone: Eosinophils/100 WBC (Bld) 0.3 % 0-5 [facility] Work Phone: Neutrophils (Bld) [#/Vol] 4.7 10*3/uL 2.0-7.7 [facility] Work Phone: Neutrophils/100 WBC (Bld) 67.3 % 47-70 [facility] Work Phone: WBC (Bld) [#/Vol] 7.0 10*3/uL 4.4-11.0 [facility] Work Phone: Blood erythrocytes count (nu mber/volume)on 07-12-2021 RBC (Bld) [#/Vol] 4.61 10*6/uL 4.6-6.2 [facility]: Blood hemoglobin measurement (mass/volume)on 07-12-2021 Hemoglobin (Bld) [Mass/Vol] 14.4 g/dL 13.0-16.5 [facility] Work Phone: Blood lymphocytes/100 leukoc yteson 07-12-2021 Lymphocytes/100 WBC (Bld) 20.4 % 19-41 [facility] Work Phone: Blood monocytes/100 leukocyt eson 07-12-2021 Monocytes/100 WBC (Bld) 11.1 % 0-10 [facility] Work Phone: Blood platelet mean volumeon 07-12-2021 Platelet mean volume (Bld) [Entitic vol] 11.2 fL 6.2-12.0 [facility] Work Phone: Determination of erythrocyte mean corpuscular volume (MCV)on 07-12-2021 MCV (RBC) [Entitic vol] 91.1 fL 80-94 [facility] Work Phone: Hematocrit Auto (Bld) [Volum e fraction]on 07-12-2021 Hematocrit (Bld) [Volume fraction] 42.0 % 40-54 [facility] Work Phone: Laboratory - Hematology and Cell countson 07-12-2021 Erythrocyte distribution width (RBC) [Entitic vol] 41.4 fL 35.1-43.9 [facility] Work Phone: Erythrocyte distribution width (RBC) [Ratio] 12.6 % 11.6-14.6 [facility] Work Phone: Immature granulocytes/100 WBC (Bld) 0.300 % 0.0-0.9 [facility] Work Phone: Comment on above: IG% - Immature Granu locytes (promyelocytes, myelocytes and metamyelocytes) > 1% indicates that a LEFT SHIFT is Present. MCH (RBC) [Entitic mass] 31.2 pg 27.0-32.0 [facility] Work Phone: Nucleated RBC/100 WBC (Bld) [Ratio] 0 % 0-5 [facility] Work Phone: MCHC Auto (RBC) [Mass/Vol]on 07-12-2021 MCHC (RBC) [Mass/Vol] 34.3 g/dL 32-36 [facility] Work Phone: Platelets bldon 07-12-2021 Platelets (Bld) [#/Vol] 184 10*3/uL 150-450 [facility] Work Phone: Absolute lymphocyte counton 07-05-2021 Lymphocytes Auto (Unsp spec) [#/Vol] 1.55 10*3/uL 0.83-4.51 [facility] Work Phone: Basophil percentageon 2021 Basophils/100 WBC (Bld) 0.4 % 0-1 [facility] Work Phone: Cholesterol [Mass/Vol] 148 mg/dL <200 [facility] Work Phone: Comment on above: <200 mg/dL Desirable 200-240 mg/dL Borderline >240 mg/dL High Risk Eosinophils/100 WBC (Bld) 0.3 % 0-5 [facility] Work Phone: Neutrophils (Bld) [#/Vol] 5.5 10*3/uL 2.0-7.7 [facility] Work Phone: Neutrophils/100 WBC (Bld) 70.9 % 47-70 [facility] Work Phone: Triglyceride [Mass/Vol] 201 mg/dL <199 [facility] Work Phone: Comment on above: The drugs N-Acetylcy steine and Metamizole may falsely depress this assay.Serum Triglycerides Reference Interval Normal <150 mg/dL Borderline high 150 - 199 mg/dL High 200 - 499 mg/dL Very High > or = 500 mg/dL WBC (Bld) [#/Vol] 7.8 10*3/uL 4.4-11.0 [facility] Work Phone: Blood erythrocytes count (nu mber/volume)on 07-05-2021 RBC (Bld) [#/Vol] 4.46 10*6/uL 4.6-6.2 [facility] Work Phone: Blood hemoglobin measurement (mass/volume)on 07-05-2021 Hemoglobin (Bld) [Mass/Vol] 13.4 g/dL 13.0-16.5 [facility] Work Phone: Blood lymphocytes/100 leukoc yteson 07-05-2021 Lymphocytes/100 WBC (Bld) 20.0 % 19-41 [facility] Work Phone: Blood monocytes/100 leukocyt eson 07-05-2021 Monocytes/100 WBC (Bld) 8.1 % 0-10 [facility] Work Phone: Blood platelet mean volumeon 07-05-2021 Platelet mean volume (Bld) [Entitic vol] 11.7 fL 6.2-12.0 [facility] Work Phone: Determination of erythrocyte mean corpuscular volume (MCV)on 07-05-2021 MCV (RBC) [Entitic vol] 91.0 fL 80-94 [facility] Work Phone: Hematocrit Auto (Bld) [Volum e fraction]on 07-05-2021 Hematocrit (Bld) [Volume fraction] 40.6 % 40-54 [facility] Work Phone: Laboratory - Hematology and Cell countson 07-05-2021 Erythrocyte distribution width (RBC) [Entitic vol] 41.9 fL 35.1-43.9 [facility] Work Phone: Erythrocyte distribution width (RBC) [Ratio] 12.8 % 11.6-14.6 [facility] Work Phone: Immature granulocytes/100 WBC (Bld) 0.300 % 0.0-0.9 [facility] Work Phone: Comment on above: IG% - Immature Granu locytes (promyelocytes, myelocytes and metamyelocytes) > 1% indicates that a LEFT SHIFT is Present. MCH (RBC) [Entitic mass] 30.0 pg 27.0-32.0 [facility] Work Phone: Nucleated RBC/100 WBC (Bld) [Ratio] 0 % 0-5 [facility] Work Phone: MCHC Auto (RBC) [Mass/Vol]on 07-05-2021 MCHC (RBC) [Mass/Vol] 33.0 g/dL 32-36 [facility] Work Phone: Platelets bldon 07-05-2021 Platelets (Bld) [#/Vol] 186 10*3/uL 150-450 [facility] Work Phone: Serum or plasma cholesterol in HDL measurement (mass/volume)on 07-05-2021 Cholesterol in HDL [Mass/Vol] 30 mg/dL >40 [facility] Work Phone: Comment on above: The drugs N-Acetylcy steine and Metamizole may falsely depress this assay. Reference Range HDL <40 mg/dL Low HDL Cholesterol HDL >or= 60 mg/dL High HDL Cholesterol Serum or plasma cholesterol in VLDL measurement (mass/volume)on 07-05-2021 Cholesterol in VLDL [Mass/Vol] 40 mg/dL 5-40 [facility] Work Phone: Serum or plasma low density lipoprotein (LDL) cholesterol measurement (mass/volume)on 07-05-2021 Cholesterol in LDL [Mass/Vol] 78 mg/dL 0-130 [facility] Work Phone: Absolute lymphocyte counton 06-28-2021 Lymphocytes Auto (Unsp spec) [#/Vol] 2.01 10*3/uL 0.83-4.51 [facility] Work Phone: Basophil percentageon 2021 Basophils/100 WBC (Bld) 0.5 % 0-1 [facility] Work Phone: Eosinophils/100 WBC (Bld) 0.3 % 0-5 [facility] Work Phone: Neutrophils (Bld) [#/Vol] 3.3 10*3/uL 2.0-7.7 [facility] Work Phone: Neutrophils/100 WBC (Bld) 55.5 % 47-70 [facility] Work Phone: WBC (Bld) [#/Vol] 6.0 10*3/uL 4.4-11.0 [facility] Work Phone: Blood erythrocytes count (nu mber/volume)on 06-28-2021 RBC (Bld) [#/Vol] 4.32 10*6/uL 4.6-6.2 [facility] Work Phone: Blood hemoglobin measurement (mass/volume)on 06-28-2021 Hemoglobin (Bld) [Mass/Vol] 13.5 g/dL 13.0-16.5 [facility] Work Phone: Blood lymphocytes/100 leukoc yteson 06-28-2021 Lymphocytes/100 WBC (Bld) 33.5 % 19-41 [facility] Work Phone: Blood monocytes/100 leukocyt eson 06-28-2021 Monocytes/100 WBC (Bld) 10.0 % 0-10 [facility] Work Phone: Blood platelet mean volumeon 06-28-2021 Platelet mean volume (Bld) [Entitic vol] 11.8 fL 6.2-12.0 [facility] Work Phone: Determination of erythrocyte mean corpuscular volume (MCV)on 06-28-2021 MCV (RBC) [Entitic vol] 89.8 fL 80-94 [facility] Work Phone: Hematocrit Auto (Bld) [Volum e fraction]on 06-28-2021 Hematocrit (Bld) [Volume fraction] 38.8 % 40-54 [facility] Work Phone: Laboratory - Hematology and Cell countson 06-28-2021 Erythrocyte distribution width (RBC) [Entitic vol] 40.6 fL 35.1-43.9 [facility] Work Phone: Erythrocyte distribution width (RBC) [Ratio] 12.5 % 11.6-14.6 [facility] Work Phone: Immature granulocytes/100 WBC (Bld) 0.200 % 0.0-0.9 [facility] Work Phone: Comment on above: IG% - Immature Granu locytes (promyelocytes, myelocytes and metamyelocytes) > 1% indicates that a LEFT SHIFT is Present. MCH (RBC) [Entitic mass] 31.3 pg 27.0-32.0 [facility] Work Phone: Nucleated RBC/100 WBC (Bld) [Ratio] 0 % 0-5 [facility] Work Phone: MCHC Auto (RBC) [Mass/Vol]on 06-28-2021 MCHC (RBC) [Mass/Vol] 34.8 g/dL 32-36 [facility] Work Phone: Platelets bldon 06-28-2021 Platelets (Bld) [#/Vol] 185 10*3/uL 150-450 [facility] Work Phone: Absolute lymphocyte counton 06-21-2021 Lymphocytes Auto (Unsp spec) [#/Vol] 1.78 10*3/uL 0.83-4.51 [facility] Work Phone: Basophil percentageon 2021 Basophils/100 WBC (Bld) 0.3 % 0-1 [facility] Work Phone: Eosinophils/100 WBC (Bld) 0.4 % 0-5 [facility] Work Phone: Neutrophils (Bld) [#/Vol] 4.2 10*3/uL 2.0-7.7 [facility] Work Phone: Neutrophils/100 WBC (Bld) 62.7 % 47-70 [facility] Work Phone: WBC (Bld) [#/Vol] 6.8 10*3/uL 4.4-11.0 [facility] Work Phone: Blood erythrocytes count (nu mber/volume)on 06-21-2021 RBC (Bld) [#/Vol] 4.21 10*6/uL 4.6-6.2 [facility] Work [facility]: Blood hemoglobin measurement (mass/volume)on 06-21-2021 Hemoglobin (Bld) [Mass/Vol] 13.3 g/dL 13.0-16.5 [facility] Work Phone: Blood lymphocytes/100 leukoc yteson 06-21-2021 Lymphocytes/100 WBC (Bld) 26.3 % 19-41 [facility] Work Phone: Blood monocytes/100 leukocyt eson 06-21-2021 Monocytes/100 WBC (Bld) 9.9 % 0-10 [facility] Work Phone: Blood platelet mean volumeon 06-21-2021 Platelet mean volume (Bld) [Entitic vol] 11.5 fL 6.2-12.0 [facility] Work Phone: Determination of erythrocyte mean corpuscular volume (MCV)on 06-21-2021 MCV (RBC) [Entitic vol] 91.0 fL 80-94 [facility] Work Phone: Hematocrit Auto (Bld) [Volum e fraction]on 06-21-2021 Hematocrit (Bld) [Volume fraction] 38.3 % 40-54 [facility] Work Phone: Laboratory - Hematology and Cell countson 06-21-2021 Erythrocyte distribution width (RBC) [Entitic vol] 40.2 fL 35.1-43.9 [facility] Work Phone: Erythrocyte distribution width (RBC) [Ratio] 12.2 % 11.6-14.6 [facility] Work Phone: Immature granulocytes/100 WBC (Bld) 0.400 % 0.0-0.9 [facility] Work Phone: Comment on above: IG% - Immature Granu locytes (promyelocytes, myelocytes and metamyelocytes) > 1% indicates that a LEFT SHIFT is Present. MCH (RBC) [Entitic mass] 31.6 pg 27.0-32.0 [facility] Work Phone: Nucleated RBC/100 WBC (Bld) [Ratio] 0 % 0-5 [facility] Work Phone: MCHC Auto (RBC) [Mass/Vol]on 06-21-2021 MCHC (RBC) [Mass/Vol] 34.7 g/dL 32-36 [facility] Work Phone: Platelets bldon 06-21-2021 Platelets (Bld) [#/Vol] 217 10*3/uL 150-450 [facility] Work Phone: Absolute lymphocyte counton 06-14-2021 Lymphocytes Auto (Unsp spec) [#/Vol] 1.41 10*3/uL 0.83-4.51 [facility] Work Phone: Basophil percentageon 2021 Basophils/100 WBC (Bld) 0.4 % 0-1 [facility] Work Phone: [phone] Chloride [Moles/Vol] 106 mmol/L 98-107 [facility]: [phone] Eosinophils/100 WBC (Bld) 0.6 % 0-5 [facility] Work Phone: Glucose [Mass/Vol] 121 mg/dL 74-106 [facility] Work Phone: Comment on above: Fasting Glucose resu lt from 100 to 125 mg/dL suggests IMPAIRED HOMEOSTASIS per A.D.A. criteria. Neutrophils (Bld) [#/Vol] 4.8 10*3/uL 2.0-7.7 [facility] Work Phone: Neutrophils/100 WBC (Bld) 69.9 % 47-70 [facility] Work Phone: Potassium [Moles/Vol] 3.7 mmol/L 3.5-5.1 [facility] Work Phone: Sodium [Moles/Vol] 140 mmol/L 136-145 [facility] Work Phone: WBC (Bld) [#/Vol] 6.8 10*3/uL 4.4-11.0 [facility] Work Phone: Blood erythrocytes count (nu mber/volume)on 06-14-2021 RBC (Bld) [#/Vol] 4.78 10*6/uL 4.6-6.2 [facility] Work Phone: Blood hemoglobin measurement (mass/volume)on 06-14-2021 Hemoglobin (Bld) [Mass/Vol] 14.9 g/dL 13.0-16.5 [facility] Work Phone: Blood lymphocytes/100 leukoc yteson 06-14-2021 Lymphocytes/100 WBC (Bld) 20.8 % 19-41 [facility] Work Phone: Blood monocytes/100 leukocyt eson 06-14-2021 Monocytes/100 WBC (Bld) 7.7 % 0-10 [facility] Work Phone: Blood platelet mean volumeon 06-14-2021 Platelet mean volume (Bld) [Entitic vol] 11.5 fL 6.2-12.0 [facility] Work Phone: Determination of erythrocyte mean corpuscular volume (MCV)on 06-14-2021 MCV (RBC) [Entitic vol] 89.5 fL 80-94 [facility] Work Phone: Hematocrit Auto (Bld) [Volum e fraction]on 06-14-2021 Hematocrit (Bld) [Volume fraction] 42.8 % 40-54 [facility] Work Phone: Laboratory - Chemistry and C hemistry - challengeon 06-14-2021 CO2 [Moles/Vol] 27.0 mmol/L 21.0-32.0 [facility] Work Phone: Urea nitrogen/Creatinine [Mass ratio] 35.0 mg/mg 10-20 [facility] Work Phone: Laboratory - Hematology and Cell countson 06-14-2021 Erythrocyte distribution width (RBC) [Entitic vol] 39.3 fL 35.1-43.9 [facility] Work Phone: Erythrocyte distribution width (RBC) [Ratio] 12.0 % 11.6-14.6 [facility] Work Phone: Immature granulocytes/100 WBC (Bld) 0.600 % 0.0-0.9 [facility] Work Phone: Comment on above: IG% - Immature Granu locytes (promyelocytes, myelocytes and metamyelocytes) > 1% indicates that a LEFT SHIFT is Present. MCH (RBC) [Entitic mass] 31.2 pg 27.0-32.0 [facility] Work Phone: Nucleated RBC/100 WBC (Bld) [Ratio] 0 % 0-5 [facility] Work Phone: MCHC Auto (RBC) [Mass/Vol]on 06-14-2021 MCHC (RBC) [Mass/Vol] 34.8 g/dL 32-36 [facility] Work Phone: No Panel Informationon 06-14 Estimated GFR (MDRD) Amer 185 mL/min >60 [facility] Work Phone: Comment on above: GFR Calc Estimated GFR (MDRD) Non-Af Amer 153 mL/min >60 [facility] Work Phone: Comment on above: Non- GFR Calc Platelets bldon 06-14-2021 Platelets (Bld) [#/Vol] 223 10*3/uL 150-450 [facility] Work Phone: Serum or plasma calcium gordy urement (mass/volume)on 06-14-2021 Calcium [Mass/Vol] 8.0 mg/dL 8.5-10.1 [facility] Work Phone: Serum or plasma creatinine m easurement (mass/volume)on 06-14-2021 Creatinine [Mass/Vol] 0.57 mg/dL 0.70-1.30 [facility] Work Phone: Comment on above: The validity of the calculated GFR & GFRAA in patients over 70 years has not been determined. Clinical correlation is essential. Serum or plasma urea nitroge n measurement (mass/volume)on 06-14-2021 Urea nitrogen [Mass/Vol] 20 mg/dL 7-18 [facility] Work Phone: Thin prep Papanicolaou smear with manual screeningon 06-14-2021 Thin prep Papanicolaou smear with manual screening 7 5-15 [facility] Work Phone: Absolute lymphocyte counton 06-07-2021 Lymphocytes Auto (Unsp spec) [#/Vol] 1.38 10*3/uL 0.83-4.51 [facility] Work Phone: Basophil percentageon 2021 Basophils/100 WBC (Bld) 0.2 % 0-1 [facility] Work Phone: Eosinophils/100 WBC (Bld) 0.0 % 0-5 [facility] Work Phone: Neutrophils (Bld) [#/Vol] 7.3 10*3/uL 2.0-7.7 [facility] Work Phone: [phone] Neutrophils/100 WBC (Bld) 75.3 % 47-70 [facility] Work Phone: WBC (Bld) [#/Vol] 9.7 10*3/uL 4.4-11.[facility] Blood erythrocytes count (nu mber/volume)on 06-07-2021 RBC (Bld) [#/Vol] 4.48 10*6/uL 4.6-6.2 [facility]: Blood hemoglobin measurement (mass/volume)on 06-07-2021 Hemoglobin (Bld) [Mass/Vol] 13.8 g/dL 13.0-16.5 [facility] Work Phone: Blood lymphocytes/100 leukoc yteson 06-07-2021 Lymphocytes/100 WBC (Bld) 14.2 % 19-41 [facility] Work Phone: Blood monocytes/100 leukocyt eson 06-07-2021 Monocytes/100 WBC (Bld) 10.2 % 0-10 [facility] Work Phone: Blood platelet mean volumeon 06-07-2021 Platelet mean volume (Bld) [Entitic vol] 11.9 fL 6.2-12.0 [facility] Work Phone: Determination of erythrocyte mean corpuscular volume (MCV)on 06-07-2021 MCV (RBC) [Entitic vol] 92.9 fL 80-94 [facility] Work Phone: Hematocrit Auto (Bld) [Volum e fraction]on 06-07-2021 Hematocrit (Bld) [Volume fraction] 41.6 % 40-54 [facility] Work Phone: Laboratory - Hematology and Cell countson 06-07-2021 Erythrocyte distribution width (RBC) [Entitic vol] 43.8 fL 35.1-43.9 [facility] Work Phone: Erythrocyte distribution width (RBC) [Ratio] 12.8 % 11.6-14.6 [facility] Work Phone: Immature granulocytes/100 WBC (Bld) 0.100 % 0.0-0.9 [facility] Work Phone: Comment on above: IG% - Immature Granu locytes (promyelocytes, myelocytes and metamyelocytes) > 1% indicates that a LEFT SHIFT is Present. MCH (RBC) [Entitic mass] 30.8 pg 27.0-32.0 [facility] Work Phone: Nucleated RBC/100 WBC (Bld) [Ratio] 0 % 0-5 [facility] Work Phone: MCHC Auto (RBC) [Mass/Vol]on 06-07-2021 MCHC (RBC) [Mass/Vol] 33.2 g/dL 32-36 [facility] Work [facility]: [phone] Platelets bldon 06-07-2021 Platelets (Bld) [#/Vol] 152 10*3/uL 150-450 [facility] Work Phone: Absolute lymphocyte counton 05-31-2021 Lymphocytes Auto (Unsp spec) [#/Vol] 1.72 10*3/uL 0.83-4.51 [facility] Work Phone: Basophil percentageon 2021 Basophils/100 WBC (Bld) 0.7 % 0-1 [facility] Work Phone: Eosinophils/100 WBC (Bld) 1.1 % 0-5 [facility] Work Phone: Neutrophils (Bld) [#/Vol] 3.3 10*3/uL 2.0-7.7 [facility] Work Phone: Neutrophils/100 WBC (Bld) 58.5 % 47-70 [facility] Work Phone: WBC (Bld) [#/Vol] 5.6 10*3/uL 4.4-11.0 [facility] Work Phone: Blood erythrocytes count (nu mber/volume)on 05-31-2021 RBC (Bld) [#/Vol] 4.44 10*6/uL 4.6-6.2 [facility] Work Phone: [phone] Blood hemoglobin measurement (mass/volume)on 05-31-2021 Hemoglobin (Bld) [Mass/Vol] 13.6 g/dL 13.0-16.5 [facility] Work Phone: Blood lymphocytes/100 leukoc yteson 05-31-2021 Lymphocytes/100 WBC (Bld) 30.7 % 19-41 [facility] Work Phone: Blood monocytes/100 leukocyt eson 05-31-2021 Monocytes/100 WBC (Bld) 8.6 % 0-10 [facility] Work Phone: Blood platelet mean volumeon 05-31-2021 Platelet mean volume (Bld) [Entitic vol] 11.2 fL 6.2-12.0 [facility] Work Phone: Determination of erythrocyte mean corpuscular volume (MCV)on 05-31-2021 MCV (RBC) [Entitic vol] 92.1 fL 80-94 [facility] Work Phone: Hematocrit Auto (Bld) [Volum e fraction]on 05-31-2021 Hematocrit (Bld) [Volume fraction] 40.9 % 40-54 [facility] Work Phone: Laboratory - Hematology and Cell countson 05-31-2021 Erythrocyte distribution width (RBC) [Entitic vol] 42.2 fL 35.1-43.9 [facility] Work Phone: [phone] Erythrocyte distribution width (RBC) [Ratio] 12.4 % 11.6-14.6 [facility] Work Phone: [phone] Immature granulocytes/100 WBC (Bld) 0.400 % 0.0-0.9 [facility] Work Phone: Comment on above: IG% - Immature Granu locytes (promyelocytes, myelocytes and metamyelocytes) > 1% indicates that a LEFT SHIFT is Present. MCH (RBC) [Entitic mass] 30.6 pg 27.0-32.0 [facility] Work Phone: [phone] Nucleated RBC/100 WBC (Bld) [Ratio] 0 % 0-5 [facility] Work Phone: MCHC Auto (RBC) [Mass/Vol]on 05-31-2021 MCHC (RBC) [Mass/Vol] 33.3 g/dL 32-36 [facility] Work Phone: [phone] Platelets bldon 05-31-2021 Platelets (Bld) [#/Vol] 189 10*3/uL 150-450 [facility] Work Phone: [phone] Absolute lymphocyte counton 05-24-2021 Lymphocytes Auto (Unsp spec) [#/Vol] 1.58 10*3/uL 0.83-4.51 [facility] Work Phone: Basophil percentageon 2021 Basophils/100 WBC (Bld) 0.8 % 0-1 [facility] Work Phone: Eosinophils/100 WBC (Bld) 2.4 % 0-5 [facility] Work Phone: Neutrophils (Bld) [#/Vol] 3.8 10*3/uL 2.0-7.7 [facility] Work Phone: [phone] Neutrophils/100 WBC (Bld) 60.3 % 47-70 [facility] Work Phone: WBC (Bld) [#/Vol] 6.3 10*3/uL 4.4-11.0 [facility] Blood erythrocytes count (nu mber/volume)on 05-24-2021 RBC (Bld) [#/Vol] 4.50 10*6/uL 4.6-6.2 [facility]: Blood hemoglobin measurement (mass/volume)on 05-24-2021 Hemoglobin (Bld) [Mass/Vol] 13.7 g/dL 13.0-16.5 [facility] Work Phone: Blood lymphocytes/100 leukoc yteson 05-24-2021 Lymphocytes/100 WBC (Bld) 25.0 % 19-41 [facility] Work Phone: Blood monocytes/100 leukocyt eson 05-24-2021 Monocytes/100 WBC (Bld) 11.2 % 0-10 [facility] Work Phone: Blood platelet mean volumeon 05-24-2021 Platelet mean volume (Bld) [Entitic vol] 11.3 fL 6.2-12.0 [facility] Work Phone: Determination of erythrocyte mean corpuscular volume (MCV)on 05-24-2021 MCV (RBC) [Entitic vol] 92.9 fL 80-94 [facility] Work Phone: Hematocrit Auto (Bld) [Volum e fraction]on 05-24-2021 Hematocrit (Bld) [Volume fraction] 41.8 % 40-54 [facility] Work Phone: Laboratory - Hematology and Cell countson 05-24-2021 Erythrocyte distribution width (RBC) [Entitic vol] 42.8 fL 35.1-43.9 [facility] Work Phone: Erythrocyte distribution width (RBC) [Ratio] 12.6 % 11.6-14.6 [facility] Work Phone: Immature granulocytes/100 WBC (Bld) 0.300 % 0.0-0.9 [facility] Work Phone: Comment on above: IG% - Immature Granu locytes (promyelocytes, myelocytes and metamyelocytes) > 1% indicates that a LEFT SHIFT is Present. MCH (RBC) [Entitic mass] 30.4 pg 27.0-32.0 [facility] Work Phone: [phone] Nucleated RBC/100 WBC (Bld) [Ratio] 0 % 0-5 [facility] Work Phone: MCHC Auto (RBC) [Mass/Vol]on 05-24-2021 MCHC (RBC) [Mass/Vol] 32.8 g/dL 32-36 [facility] Work Phone: Platelets bldon 05-24-2021 Platelets (Bld) [#/Vol] 207 10*3/uL 150-450 [facility] Work Phone: Absolute lymphocyte counton 05-17-2021 Lymphocytes Auto (Unsp spec) [#/Vol] 1.59 10*3/uL 0.83-4.51 [facility] Work Phone: Basophil percentageon 2021 Basophils/100 WBC (Bld) 0.7 % 0-1 [facility] Work Phone: Eosinophils/100 WBC (Bld) 1.7 % 0-5 [facility] Work Phone: Neutrophils (Bld) [#/Vol] 3.5 10*3/uL 2.0-7.7 [facility] Work Phone: Neutrophils/100 WBC (Bld) 59.5 % 47-70 [facility] Work Phone: WBC (Bld) [#/Vol] 5.9 10*3/uL 4.4-11.0 [facility] Work Phone: Blood erythrocytes count (nu mber/volume)on 05-17-2021 RBC (Bld) [#/Vol] 4.35 10*6/uL 4.6-6.2 [facility] Work [facility]: Blood hemoglobin measurement (mass/volume)on 05-17-2021 Hemoglobin (Bld) [Mass/Vol] 13.4 g/dL 13.0-16.5 [facility] Work Phone: Blood lymphocytes/100 leukoc yteson 05-17-2021 Lymphocytes/100 WBC (Bld) 26.9 % 19-41 [facility] Work Phone: Blood monocytes/100 leukocyt eson 05-17-2021 Monocytes/100 WBC (Bld) 11.0 % 0-10 [facility] Work Phone: Blood platelet mean volumeon 05-17-2021 Platelet mean volume (Bld) [Entitic vol] 11.5 fL 6.2-12.0 [facility] Work Phone: Determination of erythrocyte mean corpuscular volume (MCV)on 05-17-2021 MCV (RBC) [Entitic vol] 92.9 fL 80-94 [facility] Work Phone: Hematocrit Auto (Bld) [Volum e fraction]on 05-17-2021 Hematocrit (Bld) [Volume fraction] 40.4 % 40-54 [facility] Work Phone: Laboratory - Hematology and Cell countson 05-17-2021 Erythrocyte distribution width (RBC) [Entitic vol] 43.4 fL 35.1-43.9 [facility] Work Phone: Erythrocyte distribution width (RBC) [Ratio] 12.7 % 11.6-14.6 [facility] Work Phone: Immature granulocytes/100 WBC (Bld) 0.200 % 0.0-0.9 [facility] Work Phone: Comment on above: IG% - Immature Granu locytes (promyelocytes, myelocytes and metamyelocytes) > 1% indicates that a LEFT SHIFT is Present. MCH (RBC) [Entitic mass] 30.8 pg 27.0-32.0 [facility] Work Phone: Nucleated RBC/100 WBC (Bld) [Ratio] 0 % 0-5 [facility] Work Phone: MCHC Auto (RBC) [Mass/Vol]on 05-17-2021 MCHC (RBC) [Mass/Vol] 33.2 g/dL 32-36 [facility] Work Phone: Platelets bldon 05-17-2021 Platelets (Bld) [#/Vol] 171 10*3/uL 150-450 [facility] Work Phone: ED Provider Noteon 2 ED Provider Note Emergency Department Encounter [facility] ED Patient: Kathya Hooper : [...] [employer] Timothy Burton DO 05/15/21 1530 Normal [facility] ED Provider Note [facility] ED eMERGENCY dEPARTMENT eNCOUnter Pt [...] Diagnosis Date ? TREVER (acute kidney injury) ([facility]) ? Alcohol abuse 07/08/2018 ? [...] of [place] (more content not included)... Normal [facility] Basophil percentageon 2021 Chloride [Moles/Vol] 105 mmol/L 98-107 [facility] Work Phone: Glucose [Mass/Vol] 96 mg/dL 74-106 [facility] Work Phone: Potassium [Moles/Vol] 3.5 mmol/L 3.5-5.1 [facility] Work Phone: Sodium [Moles/Vol] 141 mmol/L 136-145 [facility] Work Phone: Laboratory - Chemistry and C hemistry - challengeon 05-14-2021 CO2 [Moles/Vol] 30.0 mmol/L 21.0-32.0 [facility] Work Phone: Urea nitrogen/Creatinine [Mass ratio] 39.2 mg/mg 10-20 [facility] Work Phone: No Panel Informationon 05-14 Estimated GFR (MDRD) Amer 210 mL/min >60 [facility] Work Phone: Comment on above: GFR Calc Estimated GFR (MDRD) Non-Af Amer 174 mL/min >60 [facility] Work Phone: Comment on above: Non- GFR Calc Serum or plasma calcium gordy urement (mass/volume)on 05-14-2021 Calcium [Mass/Vol] 8.4 mg/dL 8.5-10.1 [facility] Work Phone: Serum or plasma creatinine m easurement (mass/volume)on 05-14-2021 Creatinine [Mass/Vol] 0.51 mg/dL 0.70-1.30 [facility] Work Phone: Comment on above: The validity of the calculated GFR & GFRAA in patients over 70 years has not been determined. Clinical correlation is essential. Serum or plasma urea nitroge n measurement (mass/volume)on 05-14-2021 Urea nitrogen [Mass/Vol] 20 mg/dL 7-18 [facility] Work Phone: Thin prep Papanicolaou smear with manual screeningon 05-14-2021 Thin prep Papanicolaou smear with manual screening 6 5-15 [facility] Work Phone: Absolute lymphocyte counton 05-10-2021 Lymphocytes Auto (Unsp spec) [#/Vol] 1.65 10*3/uL 0.83-4.51 [facility] Work Phone: Basophil percentageon 2021 Basophils/100 WBC (Bld) 0.5 % 0-1 [facility] Work Phone: Eosinophils/100 WBC (Bld) 0.7 % 0-5 [facility] Work Phone: Neutrophils (Bld) [#/Vol] 5.6 10*3/uL 2.0-7.7 [facility] Work Phone: Neutrophils/100 WBC (Bld) 69.5 % 47-70 [facility] Work Phone: WBC (Bld) [#/Vol] 8.1 10*3/uL 4.4-11.0 [facility] Work Phone: [phone] Blood erythrocytes count (nu mber/volume)on 05-10-2021 RBC (Bld) [#/Vol] 4.52 10*6/uL 4.6-6.2 [facility] Work Phone: Blood hemoglobin measurement (mass/volume)on 05-10-2021 Hemoglobin (Bld) [Mass/Vol] 13.8 g/dL 13.0-16.5 [facility] Work Phone: Blood lymphocytes/100 leukoc yteson 05-10-2021 Lymphocytes/100 WBC (Bld) 20.4 % 19-41 [facility] Work Phone: Blood monocytes/100 leukocyt eson 05-10-2021 Monocytes/100 WBC (Bld) 8.4 % 0-10 [facility] Work Phone: Blood platelet mean volumeon 05-10-2021 Platelet mean volume (Bld) [Entitic vol] 11.3 fL 6.2-12.0 [facility] Work Phone: Determination of erythrocyte mean corpuscular volume (MCV)on 05-10-2021 MCV (RBC) [Entitic vol] 91.8 fL 80-94 [facility] Work Phone: Hematocrit Auto (Bld) [Volum e fraction]on 05-10-2021 Hematocrit (Bld) [Volume fraction] 41.5 % 40-54 [facility] Work Phone: Laboratory - Hematology and Cell countson 05-10-2021 Erythrocyte distribution width (RBC) [Entitic vol] 42.9 fL 35.1-43.9 [facility] Work Phone: Erythrocyte distribution width (RBC) [Ratio] 12.8 % 11.6-14.6 [facility] Work Phone: Immature granulocytes/100 WBC (Bld) 0.500 % 0.0-0.9 [facility] Work Phone: Comment on above: IG% - Immature Granu locytes (promyelocytes, myelocytes and metamyelocytes) > 1% indicates that a LEFT SHIFT is Present. MCH (RBC) [Entitic mass] 30.5 pg 27.0-32.0 [facility] Work Phone: Nucleated RBC/100 WBC (Bld) [Ratio] 0 % 0-5 [facility] Work Phone: MCHC Auto (RBC) [Mass/Vol]on 05-10-2021 MCHC (RBC) [Mass/Vol] 33.3 g/dL 32-36 [facility] Work Phone: [phone] Platelets bldon 05-10-2021 Platelets (Bld) [#/Vol] 191 10*3/uL 150-450 [facility] Work Phone: Absolute lymphocyte counton 05-03-2021 Lymphocytes Auto (Unsp spec) [#/Vol] 1.69 10*3/uL 0.83-4.51 [facility] Work Phone: Basophil percentageon 2021 Basophils/100 WBC (Bld) 0.6 % 0-1 [facility] Work Phone: [phone] Eosinophils/100 WBC (Bld) 0.7 % 0-5 [facility] Work Phone: [phone] Neutrophils (Bld) [#/Vol] 4.6 10*3/uL 2.0-7.7 [facility] Work Phone: [phone] Neutrophils/100 WBC (Bld) 64.4 % 47-70 [facility] Work Phone: [phone] WBC (Bld) [#/Vol] 7.2 10*3/uL 4.4-11.0 [facility] Work Phone: [phone] Blood erythrocytes count (nu mber/volume)on 05-03-2021 RBC (Bld) [#/Vol] 4.55 10*6/uL 4.6-6.2 [facility] Work Phone: Blood hemoglobin measurement (mass/volume)on 05-03-2021 Hemoglobin (Bld) [Mass/Vol] 14.0 g/dL 13.0-16.5 [facility] Work Phone: [phone] Blood lymphocytes/100 leukoc yteson 05-03-2021 Lymphocytes/100 WBC (Bld) 23.6 % 19-41 [facility] Work Phone: Blood monocytes/100 leukocyt eson 05-03-2021 Monocytes/100 WBC (Bld) 10.3 % 0-10 [facility] Work Phone: Blood platelet mean volumeon 05-03-2021 Platelet mean volume (Bld) [Entitic vol] 11.7 fL 6.2-12.0 [facility] Work Phone: Determination of erythrocyte mean corpuscular volume (MCV)on 05-03-2021 MCV (RBC) [Entitic vol] 93.2 fL 80-94 [facility] Work Phone: Hematocrit Auto (Bld) [Volum e fraction]on 05-03-2021 Hematocrit (Bld) [Volume fraction] 42.4 % 40-54 [facility] Work Phone: Laboratory - Hematology and Cell countson 05-03-2021 Erythrocyte distribution width (RBC) [Entitic vol] 44.2 fL 35.1-43.9 [facility] Work Phone: Erythrocyte distribution width (RBC) [Ratio] 13.1 % 11.6-14.6 [facility] Work Phone: Immature granulocytes/100 WBC (Bld) 0.400 % 0.0-0.9 [facility] Work Phone: Comment on above: IG% - Immature Granu locytes (promyelocytes, myelocytes and metamyelocytes) > 1% indicates that a LEFT SHIFT is Present. MCH (RBC) [Entitic mass] 30.8 pg 27.0-32.0 [facility] Work Phone: Nucleated RBC/100 WBC (Bld) [Ratio] 0 % 0-5 [facility] Work Phone: MCHC Auto (RBC) [Mass/Vol]on 05-03-2021 MCHC (RBC) [Mass/Vol] 33.0 g/dL 32-36 [facility] Work Phone: Platelets bldon 05-03-2021 Platelets (Bld) [#/Vol] 175 10*3/uL 150-450 [facility] Work Phone: Absolute lymphocyte counton 04-26-2021 Lymphocytes Auto (Unsp spec) [#/Vol] 1.68 10*3/uL 0.83-4.51 [facility] Work Phone: Basophil percentageon 2020 Eosinophils/100 WBC (Bld) 1.1 % 0-5 [facility] Work Phone: Neutrophils (Bld) [#/Vol] 4.5 10*3/uL 2.0-7.7 [facility] Work Phone: [phone] WBC (Bld) [#/Vol] 7.2 10*3/uL 4.4-11.0 [facility] Work Phone: Blood erythrocytes count (nu mber/volume)on 04-26-2021 RBC (Bld) [#/Vol] 4.32 10*6/uL 4.6-6.2 [facility] Work [facility]: Blood hemoglobin measurement (mass/volume)on 04-26-2021 Hemoglobin (Bld) [Mass/Vol] 13.5 g/dL 13.0-16.5 [facility] Work Phone: Blood lymphocytes/100 leukoc yteson 04-26-2021 Lymphocytes/100 WBC (Bld) 23.5 % 19-41 [facility] Work Phone: Blood monocytes/100 leukocyt eson 04-26-2021 Monocytes/100 WBC (Bld) 11.0 % 0-10 [facility] Work Phone: Blood platelet mean volumeon 04-26-2021 Platelet mean volume (Bld) [Entitic vol] 11.0 fL 6.2-12.0 [facility] Work Phone: Determination of erythrocyte mean corpuscular volume (MCV)on 04-26-2021 MCV (RBC) [Entitic vol] 93.3 fL 80-94 [facility] Work Phone: Hematocrit Auto (Bld) [Volum e fraction]on 04-26-2021 Hematocrit (Bld) [Volume fraction] 40.3 % 40-54 [facility] Work [phone] Laboratory - Hematology and Cell countson 04-26-2021 Basophils/100 WBC (Unsp spec) 0.6 % 0-1 [facility] Work Phone: Erythrocyte distribution width (RBC) [Entitic vol] 45.8 fL 35.1-43.9 [facility] Work Phone: Erythrocyte distribution width (RBC) [Ratio] 13.2 % 11.6-14.6 [facility] Work Phone: [phone] Immature granulocytes/100 WBC (Bld) 0.600 % 0.0-0.9 [facility] Work Phone: Comment on above: IG% - Immature Granu locytes (promyelocytes, myelocytes and metamyelocytes) > 1% indicates that a LEFT SHIFT is Present. MCH (RBC) [Entitic mass] 31.3 pg 27.0-32.0 [facility] Work Phone: [phone] Neutrophils/100 WBC (Bld) 63.2 % 47-70 [facility] Work Phone: Nucleated RBC/100 WBC (Bld) [Ratio] 0 % 0-5 [facility] Work Phone: [phone] MCHC Auto (RBC) [Mass/Vol]on 04-26-2021 MCHC (RBC) [Mass/Vol] 33.5 g/dL 32-36 [facility] Work [facility]: Platelets bldon 04-26-2021 Platelets (Bld) [#/Vol] 172 10*3/uL 150-450 [facility] Work Phone: Absolute lymphocyte counton 04-19-2021 Lymphocytes Auto (Unsp spec) [#/Vol] 1.31 10*3/uL 0.83-4.51 [facility] Work Phone: Basophil percentageon 2020 Eosinophils/100 WBC (Bld) 2.8 % 0-5 [facility] Work Phone: [phone] Neutrophils (Bld) [#/Vol] 3.0 10*3/uL 2.0-7.7 [facility] Work Phone: [phone] WBC (Bld) [#/Vol] 5.0 10*3/uL 4.4-11.0 [facility] Work Phone: Blood erythrocytes count (nu mber/volume)on 04-19-2021 RBC (Bld) [#/Vol] 4.26 10*6/uL 4.6-6.2 [facility] Work [facility]: Blood hemoglobin measurement (mass/volume)on 04-19-2021 Hemoglobin (Bld) [Mass/Vol] 13.2 g/dL 13.0-16.5 [facility] Work Phone: Blood lymphocytes/100 leukoc yteson 04-19-2021 Lymphocytes/100 WBC (Bld) 26.1 % 19-41 [facility] Work Phone: Blood monocytes/100 leukocyt eson 04-19-2021 Monocytes/100 WBC (Bld) 10.0 % 0-10 [facility] Work Phone: Blood platelet mean volumeon 04-19-2021 Platelet mean volume (Bld) [Entitic vol] 10.9 fL 6.2-12.0 [facility] Work Phone: Determination of erythrocyte mean corpuscular volume (MCV)on 04-19-2021 MCV (RBC) [Entitic vol] 93.7 fL 80-94 [facility] Work Phone: Hematocrit Auto (Bld) [Volum e fraction]on 04-19-2021 Hematocrit (Bld) [Volume fraction] 39.9 % 40-54 [facility] Work Phone: Laboratory - Hematology and Cell countson 04-19-2021 Basophils/100 WBC (Unsp spec) 1.0 % 0-1 [facility] Work Phone: Erythrocyte distribution width (RBC) [Entitic vol] 46.7 fL 35.1-43.9 [facility] Work Phone: [phone] Erythrocyte distribution width (RBC) [Ratio] 13.7 % 11.6-14.6 [facility] Work Phone: [phone] Immature granulocytes/100 WBC (Bld) 0.400 % 0.0-0.9 [facility] Work Phone: Comment on above: IG% - Immature Granu locytes (promyelocytes, myelocytes and metamyelocytes) > 1% indicates that a LEFT SHIFT is Present. MCH (RBC) [Entitic mass] 31.0 pg 27.0-32.0 [facility] Work Phone: [phone] Neutrophils/100 WBC (Bld) 59.7 % 47-70 [facility] Work Phone: [phone] Nucleated RBC/100 WBC (Bld) [Ratio] 0 % 0-5 [facility] Work Phone: [phone] MCHC Auto (RBC) [Mass/Vol]on 04-19-2021 MCHC (RBC) [Mass/Vol] 33.1 g/dL 32-36 [facility] Work Phone: [phone] Platelets bldon 04-19-2021 Platelets (Bld) [#/Vol] 165 10*3/uL 150-450 [facility] Work Phone: [phone] Absolute lymphocyte counton 04-12-2021 Lymphocytes Auto (Unsp spec) [#/Vol] 1.41 10*3/uL 0.83-4.51 [facility] Work Phone: [phone] Basophil percentageon 2020 Bilirubin [Mass/Vol] 0.40 mg/dL 0.20-1.00 [facility] Work Phone: [phone] Comment on above: For patients on eltr ombopag therapy, use of [employer] [place] TBIL is not recommended. Eosinophils/100 WBC (Bld) 0.9 % 0-5 [facility] Work Phone: [phone] Neutrophils (Bld) [#/Vol] 3.4 10*3/uL 2.0-7.7 [facility] Work Phone: Protein [Mass/Vol] 5.7 g/dL 6.4-8.2 [facility] Work Phone: WBC (Bld) [#/Vol] 5.5 10*3/uL 4.4-11.0 [facility] Work Phone: Blood erythrocytes count (nu mber/volume)on 04-12-2021 RBC (Bld) [#/Vol] 4.09 10*6/uL 4.6-6.2 [facility] Work Phone: Blood hemoglobin measurement (mass/volume)on 04-12-2021 Hemoglobin (Bld) [Mass/Vol] 12.4 g/dL 13.0-16.5 [facility] Work Phone: Blood lymphocytes/100 leukoc yteson 04-12-2021 Lymphocytes/100 WBC (Bld) 25.9 % 19-41 [facility] Work Phone: Blood monocytes/100 leukocyt eson 04-12-2021 Monocytes/100 WBC (Bld) 9.2 % 0-10 [facility] Work Phone: Blood platelet mean volumeon 04-12-2021 Platelet mean volume (Bld) [Entitic vol] 11.1 fL 6.2-12.0 [facility] Work Phone: Determination of erythrocyte mean corpuscular volume (MCV)on 04-12-2021 MCV (RBC) [Entitic vol] 93.4 fL 80-94 [facility] Work Phone: Direct bilirubinon Bilirubin.direct [Mass/Vol] 0.08 mg/dL 0.00-0.30 [facility] Work Phone: Hematocrit Auto (Bld) [Volum e fraction]on 04-12-2021 Hematocrit (Bld) [Volume fraction] 38.2 % 40-54 [facility] Work Phone: Laboratory - Chemistry and C hemistry - challengeon 04-12-2021 ALP [Catalytic activity/Vol] 101 U/L 45-117 [facility] Work Phone: ALT [Catalytic activity/Vol] 30 U/L 16-61 [facility] Work Phone: Globulin (S) [Mass/Vol] 2.9 g/dL 2.2-4.2 [facility] Work Phone: Laboratory - Hematology and Cell countson 04-12-2021 Basophils/100 WBC (Unsp spec) 0.6 % 0-1 [facility] Work Phone: Erythrocyte distribution width (RBC) [Entitic vol] 46.7 fL 35.1-43.9 [facility] Work Phone: Erythrocyte distribution width (RBC) [Ratio] 13.7 % 11.6-14.6 [facility] Work Phone: Immature granulocytes/100 WBC (Bld) 0.400 % 0.0-0.9 [facility] Work Phone: Comment on above: IG% - Immature Granu locytes (promyelocytes, myelocytes and metamyelocytes) > 1% indicates that a LEFT SHIFT is Present. MCH (RBC) [Entitic mass] 30.3 pg 27.0-32.0 [facility] Work Phone: Neutrophils/100 WBC (Bld) 63.0 % 47-70 [facility] Work Phone: [phone] Nucleated RBC/100 WBC (Bld) [Ratio] 0 % 0-5 [facility] Work Phone: MCHC Auto (RBC) [Mass/Vol]on 04-12-2021 MCHC (RBC) [Mass/Vol] 32.5 g/dL 32-36 [facility] Work [facility]: [phone] Platelets bldon 04-12-2021 Platelets (Bld) [#/Vol] 173 10*3/uL 150-450 [facility] Work Phone: Serum or plasma albumin gordy urement (mass/volume)on 04-12-2021 Albumin [Mass/Vol] 2.8 g/dL 3.2-5.0 [facility] Work Phone: Thin prep Papanicolaou smear with manual screeningon 04-12-2021 Thin prep Papanicolaou smear with manual screening 15 U/L 15-37 [facility] Work Phone: Absolute lymphocyte counton 04-07-2021 Lymphocytes Auto (Unsp spec) [#/Vol] 1.55 10*3/uL 0.83-4.51 [facility] Work Phone: Basophil percentageon 2020 Eosinophils/100 WBC (Bld) 0.7 % 0-5 [facility] Work Phone: Neutrophils (Bld) [#/Vol] 5.3 10*3/uL 2.0-7.7 [facility] Work Phone: WBC (Bld) [#/Vol] 8.1 10*3/uL 4.4-11.0 [facility] Work Phone: Blood erythrocytes count (nu mber/volume)on 04-07-2021 RBC (Bld) [#/Vol] 4.18 10*6/uL 4.6-6.2 [facility] Work Phone: Blood hemoglobin measurement (mass/volume)on 04-07-2021 Hemoglobin (Bld) [Mass/Vol] 12.9 g/dL 13.0-16.5 [facility] Work Phone: Blood lymphocytes/100 leukoc yteson 04-07-2021 Lymphocytes/100 WBC (Bld) 19.2 % 19-41 [facility] Work Phone: Blood monocytes/100 leukocyt eson 04-07-2021 Monocytes/100 WBC (Bld) 13.0 % 0-10 [facility] Work Phone: Blood platelet mean volumeon 04-07-2021 Platelet mean volume (Bld) [Entitic vol] 10.9 fL 6.2-12.0 [facility] Work Phone: Determination of erythrocyte mean corpuscular volume (MCV)on 04-07-2021 MCV (RBC) [Entitic vol] 92.6 fL 80-94 [facility] Work Phone: Hematocrit Auto (Bld) [Volum e fraction]on 04-07-2021 Hematocrit (Bld) [Volume fraction] 38.7 % 40-54 [facility] Work Phone: Laboratory - Hematology and Cell countson 04-07-2021 Basophils/100 WBC (Unsp spec) 0.6 % 0-1 [facility] Work Phone: Erythrocyte distribution width (RBC) [Entitic vol] 45.8 fL 35.1-43.9 [facility] Work Phone: Erythrocyte distribution width (RBC) [Ratio] 13.5 % 11.6-14.6 [facility] Work Phone: Immature granulocytes/100 WBC (Bld) 0.500 % 0.0-0.9 [facility] Work Phone: Comment on above: IG% - Immature Granu locytes (promyelocytes, myelocytes and metamyelocytes) > 1% indicates that a LEFT SHIFT is Present. MCH (RBC) [Entitic mass] 30.9 pg 27.0-32.0 [facility] Work Phone: Neutrophils/100 WBC (Bld) 66.0 % 47-70 [facility] Work Phone: Nucleated RBC/100 WBC (Bld) [Ratio] 0 % 0-5 [facility] Work Phone: MCHC Auto (RBC) [Mass/Vol]on 04-07-2021 MCHC (RBC) [Mass/Vol] 33.3 g/dL 32-36 [facility] Work [facility]: Platelets bldon 04-07-2021 Platelets (Bld) [#/Vol] 210 10*3/uL 150-450 [facility] Work Phone: CULTURE BLOODon 03-25-2021 Microscopic examination of blood, culture CULTURE BLOOD --> Status: F No growth at 5 days. Normal [facility] Comment on above: Performed By: #### C /BLD ####[facility] [employer] [facility] [id number] [place], [place] CULTURE BLOOD (Two)on 2020 Microscopic examination of blood, culture CULTURE BLOOD (Two) --> Status: F No growth at 5 days. Normal [facility] Comment on above: Performed By: #### C /BLT ####[employer] [id number] [place], [place] Basic Metabolic Panelon 03-02 Calcium [Mass/Vol] 8.8 mg/dL Normal 8.4-10.4 [facility] Comment on above: Performed By: #### H MAYKEL BMP3 #### [facility] [address] [place] [address] Glucose [Mass/Vol] 103 mg/dL High 70-100 [facility] Comment on above: Performed By: #### H EMDF BMP3 #### [facility] [address] [place] [address] Anion gap [Moles/Vol] 5 mmol/L Normal 3-13 [facility] Comment on above: Performed By: #### H ALCIRAF BMP3 #### [facility] [address] [place] [address] CO2 [Moles/Vol] 26 mmol/L Normal 22-30 [facility] Comment on above: Performed By: #### H EMDF, BMP3 #### [facility] [address] [place] [address] Creatinine [Mass/Vol] 0.49 mg/dL Low 0.52-1.25 [facility] Comment on above: Performed By: #### H EMDF, BMP3 #### [facility] [address] [place] [address] eGFR OTHER > 90.0 Normal >60 [facility] Comment on above: Result Comment: KDIG O [...] tubular creatinine secretion. Performed By: #### H EMDF BMP3 #### [facility] [address] [place] [address] GFR/1.73 sq M.predicted among blacks MDRD (S/P/Bld) [Vol rate/Area] mL/min/{1.73_m2} Normal >60 [facility] Comment on above: Performed By: #### H MAYKEL BMP3 #### [facility] [address] [place] [address] Urea nitrogen [Mass/Vol] 30 mg/dL High 7-17 [facility] Comment on above: Performed By: #### H EMDF BMP3 #### [facility] [address] [place] [address] Chloride [Moles/Vol] 112 mmol/L High 98-107 [facility] Comment on above: Performed By: #### H EMDF, BMP3 #### [facility] [address] [place] [address] Potassium [Moles/Vol] 4.1 mmol/L Normal 3.5-5.1 [facility] Comment on above: Performed By: #### H EMDF, BMP3 #### [facility] [address] [place] [address] Sodium [Moles/Vol] 142 mmol/L Normal 135-145 [facility] Comment on above: Performed By: #### H EMDF, BMP3 #### [facility] [employer] [address] [place] [address] Anion gap [Moles/Vol] 5 mmol/L 3 - 13 mmol/L [facility] Work Phone: Calcium [Mass/Vol] 8.8 mg/dL 8.4 - 10. 4 mg/dL [facility] Work Phone: Chloride [Moles/Vol] 112 mmol/L High 98 - 10 7 mmol/L [facility] Work Phone: CO2 [Moles/Vol] 26 mmol/L 22 - 30 mmol/L [facility] Work Phone: Creatinine [Mass/Vol] 0.49 mg/dL Low 0.52 - 1.25 mg/dL [facility] Work Phone: EGFR IF NonAfrican Cymraes >90.0 >60 mL/min [facility] Work Phone: Comment [...] [Moles/Vol] 4.1 mmol/L 3.5 - 5.1 mmol/L [email or web address] Work Phone: Sodium [Moles/Vol] 142 mmol/L 135 - 145 mmol/L [email or web address] Work Phone: Urea nitrogen (BldV) [Mass/Vol] 30 mg/dL High 7 - 17 mg/dL [facility] Work Phone: Test Performed by [employer] [facility], [address] [place], [place] [id number] [place] [address] LAB [facility] Work Phone: CBC Auto Differentialon 03-02 Hematocrit (Bld) [Volume fraction] 35.0 % Low 40.0 - 52.0 % [facility] Work Phone: Hemoglobin.gastrointest inal spec 1 Ql (Stl) 11.7 g/dL Low 13.0 - 18.0 g/dL [facility] Work Phone: Interpretation and review of laboratory results Abnormal [facility] Work Phone: MCH (RBC) [Entitic mass] 31.0 pg 26.0 - 34.0 pg [email or web address] Work Phone: MCHC (RBC) [Mass/Vol] 33.4 % 32.0 - 36.0 % [email or web address] Work Phone: MCV (RBC) [Entitic vol] 92.7 fL 80.0 - 98.0 fL [email or web address] Work Phone: Platelet distribution width (Bld) [Ratio] 13.4 % 11.5 - 14.5 % [email or web address] Work Phone: Platelet mean volume (Bld) [Entitic vol] 8.6 fL 7.4 - 10.4 fL [email or web address] Work Phone: Platelets (Bld) [#/Vol] 236 10*3/uL 140 - 440 10*3/uL [email or web address] Work Phone: RBC (Bld) [#/Vol] 3.77 10*6/uL Low 4.40 - 5.9 0 10*6/uL [facility] Work Phone: WBC (Bld) [#/Vol] 12.8 10*3/uL High 3.6 - 10.7 10*3/uL [facility] Work Phone: Test Performed by [employer], [address] [place], [place] [address] [facility] LAB [facility] Work Phone: Glucose,Bedsideon 03-24-2021 Glucose [Mass/Vol] 93 mg/dL Normal 70-100 [facility] Comment on above: Result Comment: Test performed by glucose meter. Results may be 10%-15% lower than serum/plasma values. (CLIA ID [id number]) Performed By: #### H EMDF BMP3 #### [employer] [address] [place] [address] Glucose [Mass/Vol] 166 mg/dL High 70-100 [facility] Comment on above: Result Comment: Test performed by glucose meter. Results may be 10%-15% lower than serum/plasma values. (CLIA ID [id number]) Performed By: #### B GLU ####[facility] [id number] [place] [address] Hemogram w/ Autodiffon 03-24 Erythrocyte distribution width (RBC) [Ratio] 13.4 % Normal 11.5-14.5 [facility] Comment on above: Performed By: #### H EMDF, BMP3 #### [employer] [facility] [address] [place] [address] Hematocrit (Bld) [Volume fraction] 35.0 % Low 40.0-52.0 [facility] Comment on above: Performed By: #### H EMDF, BMP3 #### [employer] [address] [place] [address] Hemoglobin (Bld) [Mass/Vol] 11.7 g/dL Low 13.0-18.0 [facility] Comment on above: Performed By: #### H EMDF, BMP3 #### [facility] [address] [place] [address] MCH (RBC) [Entitic mass] 31.0 pg Normal 26.0-34.0 [facility] Comment on above: Performed By: #### H EMDMaurice BMP3 #### [facility] [address] [place] [address] MCHC 33.4 % Normal 32.0-36.0 [facility] Comment on above: Performed By: #### H EMDMaurice BMP3 #### [facility] [address] [place] [address] MCV (RBC) [Entitic vol] 92.7 fL Normal 80.0-98.0 [facility] Comment on above: Performed By: #### H EMDMaurice BMP3 #### [facility] [address] [place] [address] Platelet mean volume (Bld) [Entitic vol] 8.6 fL Normal 7.4-10.4 [facility] Comment on above: Performed By: #### H MAYKEL BMP3 #### [facility] [address] [place] [address] Platelets (Bld) [#/Vol] 236 10*3/uL Normal 140-440 [facility] Comment on above: Performed By: #### H EMDMaurice BMP3 #### [facility] [address] [place] [address] RBC (Bld) [#/Vol] 3.77 10*6/uL Low 4.40-5.90 [facility] Comment on above: Performed By: #### H EMDF, BMP3 #### [facility] [address] [place] [address] WBC (Bld) [#/Vol] 12.8 10*3/uL High 3.6-10.7 [facility] Comment on above: Performed By: #### H EMDF, BMP3 #### [facility] [address] [place] [address] Manual Diffon 03-24-2021 Abs Lymph Cnt 1.7 10*3/uL Normal 1.1-4.5 [facility] Comment on above: Performed By: #### H EMDF BMP3 #### [facility] [address] [place] [address] Abs Monocyte Cnt 0.8 10*3/uL Normal 0.2-1.1 [facility] Comment on above: Performed By: #### H EMDF, BMP3 #### [facility] [address] [place] [address] Abs Neutrophile Cnt 10.1 10*3/uL High 2.2-8.2 [facility] Comment on above: Performed By: #### H EMDF, BMP3 #### [facility] [address] [place] [address] Anisocytosis Slight Normal [facility] Comment on above: Performed By: #### H EMDF, BMP3 #### [facility] [address] [place] [address] Atypical Lymphocytes 2 % Abnormal <1 [facility] Comment on above: Performed By: #### H EMDF, BMP3 #### [facility] [address] [place] [address] [place] Cells Slight Normal [facility] Comment on above: Performed By: #### H EMDF, BMP3 #### [facility] [address] [place] [address] Lymphocytes 11 % Low 20-40 [facility] Comment on above: Performed By: #### H EMDF, BMP3 #### [facility] [address] [place] [address] Monocytes 6 % Normal 2-10 [facility] Comment on above: Performed By: #### H EMDF, BMP3 #### [facility] [address] [place] [address] Myelocytes 2 % Abnormal <1 [facility] Comment on above: Performed By: #### H EMDF, BMP3 #### [facility] [address] [place] [address] Ovalocytes Slight Normal [facility] Comment on above: Performed By: #### H EMDF, BMP3 #### [facility] [address] [place] [address] Poikilocytosis Slight Normal [facility] Comment on above: Performed By: #### H EMDF, BMP3 #### [facility] [address] [place] [address] Polychromasia Slight Normal [facility] Comment on above: Performed By: #### H EMDF, BMP3 #### [facility] [address] [place] [address] RBC Morphology ABNORMAL Normal [facility] Comment on above: Performed By: #### H EMDF, BMP3 #### [facility] [address] [place] [address] Seg Neutrophils 79 % Normal 40-80 [facility] Comment on above: Performed By: #### H EMDF, BMP3 #### [facility] [address] [place] [address] T[employer] Drop Forms Slight Normal [facility] Comment on above: Performed By: #### H EMDF, BMP3 #### [facility] [address] [place] [address] Abs Baso Cnt 0.0 10*3/uL Normal 0.0-0.2 [facility] Comment on above: Performed By: #### H EMDF, BMP3 #### [facility] [address] [place] [address] Abs Eosin Cnt 0.0 10*3/uL Normal 0.0-0.5 [facility] Comment on above: Performed By: #### H EMDF, BMP3 #### [facility] [address] [place] [address] Bands 0 % Normal 0-3 [facility] Comment on above: Performed By: #### H EMDF, BMP3 #### [facility] [address] [place] [address] Basophils 0 % Normal 0-2 [facility] Comment on above: Performed By: #### H EMDF, BMP3 #### [facility] [address] [place] [address] Cells counted 100 Normal [facility] Comment on above: Performed By: #### H EMDF, BMP3 #### [facility] [address] [place] [address] Eosinophils 0 % Low 1-6 [facility] Comment on above: Performed By: #### H EMDF, BMP3 #### [facility] [address] [place] [address] Manual Differentialon 2020 Absolute Baso # 0.0 10*3/uL 0.0 - 0.2 10*3/uL [facility] Work Phone: [phone] Absolute Eos # 0.0 10*3/uL 0.0 - 0.5 10*3/uL [facility] Work Phone: Absolute Lymph # 1.7 10*3/uL 1.1 - 4.5 10*3/uL [facility] Work Phone: [phone] Absolute [place] # 0.8 10*3/uL 0.2 - 1.1 10*3/uL [facility] Work Phone: [phone] Absolute Neut # 10.1 10*3/uL High 2.2 - 8.2 10*3/uL [facility] Work Phone: [phone] Anisocytosis Slight [facility] Work Phone: [phone] Atypical Lymphocytes 2 % Abnormal <1 [facility] Work Phone: [phone] Bands 0 % 0 - 3 % [facility] Work Phone: [phone] Basophils/100 WBC (Bld) 0 % 0 - 2 % [facility] Work Phone: [phone] Abdoul Cells Slight [facility] Work Phone: [phone] Eosinophils/100 WBC (Bld) 0 % Low 1 - 6 % [facility] Work Phone: [phone] Interpretation and review of laboratory results Abnormal [facility] Work Phone: Lymphocytes/100 WBC (Bld) 11 % Low 20 - 40 % [facility] Work Phone: Monocytes/100 WBC (Bld) 6 % 2 - 10 % [facility] Work Phone: Myelocytes 2 % Abnormal <1 [facility] Work Phone: Ovalocytes Slight [facility] Work Phone: Poikilocytes Slight [facility] Work Phone: Polychromasia Slight [facility] Work Phone: RBC (Bld) [#/Vol] ABNORMAL [facility] Work Phone: Seg Neutrophils 79 % 40 - 80 % [facility] Work Phone: Tear Drop Cells Slight [facility] Work Phone: TOTAL CELLS COUNTED 100 [facility] Work Phone: Test Performed by [facility], [address] [place], [place] [address] [facility] LAB [facility] Work Phone: POCT Glucoseon 03-24-2020 Glucose [Mass/Vol] 93 mg/dL 70 - 100 mg/dL [facility] Work Phone: Comment on above: Test performed by gl ucose meter. Results may be 10%-15% lower than serum/plasma values. (CLIA ID [id number]) Test Performed by [facility], [address] [place], [place] [address] [facility] Work Phone: Basic Metabolic Panelon 11-2 Calcium [Mass/Vol] 8.8 mg/dL Normal 8.4-10.4 [facility] Comment on above: Performed By: #### H EMDF, BMP3 #### [facility] [address] [place] [address] Glucose [Mass/Vol] 143 mg/dL High 70-100 [facility] Comment on above: Performed By: #### H EMDF, BMP3 #### [facility] [address] [place] [address] Anion gap [Moles/Vol] 8 mmol/L Normal 3-13 [facility] Comment on above: Performed By: #### H EMDF, BMP3 #### [facility] [address] [place] [address] CO2 [Moles/Vol] 24 mmol/L Normal 22-30 [facility] Comment on above: Performed By: #### H EMDF, BMP3 #### [facility] [address] [place] [address] Creatinine [Mass/Vol] 0.47 mg/dL Low 0.52-1.25 [facility] Comment on above: Performed By: #### H KORIN BRAR3 #### [facility] [address] [place] [address] eGFR OTHER > 90.0 Normal >60 [facility] Comment on above: Result Comment: KDIG O [...] Performed By: #### H MAYKEL BMP3 #### [facility] [address] [place] [address] GFR/1.73 sq M.predicted among blacks MDRD (S/P/Bld) [Vol rate/Area] mL/min/{1.73_m2} Normal >60 [facility] Comment on above: Performed By: #### Kerri BRAR BMP3 #### [facility] [address] [place] [address] Urea nitrogen [Mass/Vol] 32 mg/dL High 7-17 [facility] Comment on above: Performed By: #### H MAYKEL BMP3 #### [facility] [address] [place] [address] Chloride [Moles/Vol] 110 mmol/L High 98-107 [facility] Comment on above: Performed By: #### Kerri BRRA BMP3 #### [facility] [address] [place] [address] Potassium [Moles/Vol] 3.9 mmol/L Normal 3.5-5.1 [facility] Comment on above: Performed By: #### H MAYKEL, BMP3 #### [facility] [address] [place] [address] Sodium [Moles/Vol] 142 mmol/L Normal 135-145 [facility] Comment on above: Performed By: #### H EMDF, BMP3 #### [facility] [address] [place] [address] Anion gap [Moles/Vol] 8 mmol/L 3 - 13 mmol/L [facility] Work Phone: Calcium [Mass/Vol] 8.8 mg/dL 8.4 - 10. 4 mg/dL [facility] Work Phone: Chloride [Moles/Vol] 110 mmol/L High 98 - 10 7 mmol/L [facility] Work Phone: CO2 [Moles/Vol] 24 mmol/L 22 - 30 mmol/L [facility] Work Phone: Creatinine [Mass/Vol] 0.47 mg/dL Low 0.52 - 1.25 mg/dL [facility] Work Phone: EGFR IF NonAfrican [place]ymraes >90.0 >60 mL/min [facility] Work Phone: Comment on above: KDIGO [...] MDRD (S/P/Bld) [Vol rate/Area] mL/min/{1.73_m2} >60 mL/min [email or web address] Work Phone: Glucose [Mass/Vol] 143 mg/dL High 70 - 100 mg/dL [employer] Work Phone: Interpretation and review of laboratory results Abnormal [email or web address] Work Phone: Potassium [Moles/Vol] 3.9 mmol/L 3.5 - 5.1 mmol/L [employer] Work Phone: Sodium [Moles/Vol] 142 mmol/L 135 - 145 mmol/L [employer] Work Phone: Urea nitrogen (BldV) [Mass/Vol] 32 mg/dL High 7 - 17 mg/dL [email or web address] Work Phone: Test Performed by [facility], [address] [place] [address] LAB [email or web address] Work Phone: CBC Auto Differentialon 11-2 Absolute Baso # 0.0 10*3/uL 0.0 - 0.2 10*3/uL [email or web address] Work Phone: Absolute Neut # 13.5 10*3/uL High 1.8 - 7.0 10*3/uL [email or web address] Work Phone: Basophils/100 WBC (Bld) 0.3 % 0.0 - 2.0 % [email or web address] Work Phone: Eosinophils (Bld) [#/Vol] 0.0 10*3/uL 0.0 - 0.5 10*3/uL [email or web address] Work Phone: Eosinophils/100 WBC (Bld) 0.0 % Low 1.0 - 6.0 % [email or web address] Work Phone: Granulocytes/100 WBC (Bld) 89.5 % High 40.0 - 80.0 % [email or web address] Work Phone: Hematocrit (Bld) [Volume fraction] 36.5 % Low 40.0 - 52.0 % [email or web address] Work Phone: Hemoglobin.gastrointest inal spec 1 Ql (Stl) 12.4 g/dL Low 13.0 - 18.0 g/dL [email or web address] Work Phone: Interpretation and review of laboratory results Abnormal [email or web address] Work Phone: Lymphocytes (Bld) [#/Vol] 0.7 10*3/uL Low 1.0 - 4.3 10*3/uL [email or web address] Work Phone: Lymphocytes/100 WBC (Bld) 4.8 % Low 20.0 - 40.0 % [email or web address] Work Phone: MCH (RBC) [Entitic mass] 31.3 pg 26.0 - 34.0 pg [email or web address] Work Phone: MCHC (RBC) [Mass/Vol] 34.1 % 32.0 - 36.0 % [employer] Phone: MCV (RBC) [Entitic vol] 92.0 fL 80.0 - 98.0 fL [email or web address] Work Phone: Monocytes (Bld) [#/Vol] 0.8 10*3/uL 0.0 - 0.8 10*3/uL [email or web address] Work Phone: Monocytes/100 WBC (Bld) 5.4 % 2.0 - 10.0 % [employer] Phone: Platelet distribution width (Bld) [Ratio] 13.2 % 11.5 - 14.5 % [email or web address] Work Phone: Platelet mean volume (Bld) [Entitic vol] 9.0 fL 7.4 - 10.4 fL [employer] Work Phone: Platelets (Bld) [#/Vol] 211 10*3/uL 140 - 440 10*3/uL [email or web address] Work Phone: RBC (Bld) [#/Vol] 3.96 10*6/uL Low 4.40 - 5.9 0 10*6/uL [email or web address] Work Phone: WBC (Bld) [#/Vol] 15.1 10*3/uL High 3.6 - 10.7 10*3/uL [facility] Work Phone: Test Performed by [facility], [address] [place], [place] [address] [facility] Work Phone: Glucose,Bedsideon 03-23-2021 Glucose [Mass/Vol] 122 mg/dL High 70-100 [facility] Comment on above: Result Comment: Test performed by glucose meter. Results may be 10%-15% lower than serum/plasma values. (CLIA ID [id number]) Performed By: #### H MAYKEL BMP3 #### [facility] [address] [place] [address] Glucose [Mass/Vol] 129 mg/dL High 70-100 [facility] Comment on above: Test performed by gl ucose meter. Results may be 10%-15% lower than serum/plasma values. (CLIA ID [id number]) Result Comment: Test performed by glucose meter. Results may be 10%-15% lower than serum/plasma values. (CLIA ID [id number]) Performed By: #### B GLU ####[facility] [place] [address] Glucose [Mass/Vol] 136 mg/dL High 70-100 [facility] Comment on above: Result Comment: Test performed by glucose meter. Results may be 10%-15% lower than serum/plasma values. (CLIA ID [id number]) Performed By: #### B GLU #### [facility] [address] [place] [address] Hemogram w/ Autodiffon 03-23 Abs Baso Cnt 0.0 10*3/uL Normal 0.0-0.2 [facility] Comment on above: Performed By: #### H EMDF BMP3 #### [facility] [address] [place] [address] Abs Neutrophile Cnt 13.5 10*3/uL High 1.8-7.0 [facility] Comment on above: Performed By: #### H EMDF, BMP3 #### [facility] [address] [place] [address] Basophils/100 WBC (Bld) 0.3 % Normal 0.0-2.0 [facility] Comment on above: Performed By: #### H EMDF, BMP3 #### [facility] [address] [place] [address] Eosinophils (Bld) [#/Vol] 0.0 10*3/uL Normal 0.0-0.5 [facility] Comment on above: Performed By: #### H EMDF, BMP3 #### [facility] [address] [place] [address] Eosinophils/100 WBC (Bld) 0.0 % Low 1.0-6.0 [facility] Comment on above: Performed By: #### H EMDF, BMP3 #### [facility] [address] [place] [address] Erythrocyte distribution width (RBC) [Ratio] 13.2 % Normal 11.5-14.5 [facility] Comment on above: Performed By: #### H EMDF, BMP3 #### [facility] [address] [place] [address] Granulocytes/100 WBC (Bld) 89.5 % High 40.0-80.0 [facility] Comment on above: Performed By: #### H EMDF, BMP3 #### [facility] [address] [place] [address] Hematocrit (Bld) [Volume fraction] 36.5 % Low 40.0-52.0 [facility] Comment on above: Performed By: #### H EMDF, BMP3 #### [facility] [address] [place] [address] Hemoglobin (Bld) [Mass/Vol] 12.4 g/dL Low 13.0-18.0 [facility] Comment on above: Performed By: #### H EMDF, BMP3 #### [facility] [address] [place] [address] Lymphocytes (Bld) [#/Vol] 0.7 10*3/uL Low 1.0-4.3 [facility] Comment on above: Performed By: #### H EMDF, BMP3 #### [facility] [address] [place] [address] Lymphocytes/100 WBC (Bld) 4.8 % Low 20.0-40.0 [facility] Comment on above: Performed By: #### H EMDF, BMP3 #### [facility] [address] [place] [address] MCH (RBC) [Entitic mass] 31.3 pg Normal 26.0-34.0 [facility] Comment on above: Performed By: #### H EMDF, BMP3 #### [facility] [address] [place] [address] MCHC 34.1 % Normal 32.0-36.0 [facility] Comment on above: Performed By: #### H EMDF, BMP3 #### [facility] [address] [place] [address] MCV (RBC) [Entitic vol] 92.0 fL Normal 80.0-98.0 [facility] Comment on above: Performed By: #### H EMDF, BMP3 #### [facility] [address] [place] [address] Monocytes (Bld) [#/Vol] 0.8 10*3/uL Normal 0.0-0.8 [facility] Comment on above: Performed By: #### H EMDF, BMP3 #### [facility] [address] [place] [address] Monocytes/100 WBC (Bld) 5.4 % Normal 2.0-10.0 [facility] Comment on above: Performed By: #### H EMDF, BMP3 #### [facility] [address] [place] [address] Platelet mean volume (Bld) [Entitic vol] 9.0 fL Normal 7.4-10.4 [facility] Comment on above: Performed By: #### H EMDF, BMP3 #### [facility] [address] [place] [address] Platelets (Bld) [#/Vol] 211 10*3/uL Normal 140-440 [facility] Comment on above: Performed By: #### H EMDF, BMP3 #### [facility] [address] [place] [address] RBC (Bld) [#/Vol] 3.96 10*6/uL Low 4.40-5.90 [facility] Comment on above: Performed By: #### H EMDF, BMP3 #### [facility] [address] [place] [address] WBC (Bld) [#/Vol] 15.1 10*3/uL High 3.6-10.7 [facility] Comment on above: Performed By: #### H EMDF, BMP3 #### [facility] [address] [place] [address] No Panel Informationon 03-23 Interpretation and review of laboratory results Abnormal [facility] Work Phone: Test Performed by [facility], [facility] [address] LAB [facility] Work Phone: POCT Glucoseon 03-23-2021 Glucose [Mass/Vol] 166 mg/dL High 70 - 100 mg/dL [facility] Comment on above: Test performed by gl ucose meter. Results may be 10%-15% lower than serum/plasma values. (CLIA ID [id number]) Interpretation and review of laboratory results Abnormal [facility] Test Performed by [facility], [facility] [address] LAB [facility] Glucose [Mass/Vol] 122 mg/dL High 70 - 100 mg/dL [facility] Work Phone: Comment on above: Test performed by gl ucose meter. Results may be 10%-15% lower than serum/plasma values. (CLIA ID [id number]) Glucose [Mass/Vol] 136 mg/dL High 70 - 100 mg/dL [facility] Comment on above: Test performed by gl ucose meter. Results may be 10%-15% lower than serum/plasma values. (CLIA ID [id number]) Interpretation and review of laboratory results Abnormal [facility] Test Performed by [facility], [address] [facility] LAB [place] CBC Auto Differentialon 03-02 Absolute [...] Low 4.40 - 5.9 0 10*6/uL [facility] WBC (Bld) [#/Vol] 13.3 10*3/uL High 3.6 - 10.7 10*3/uL [facility] Test Performed by [facility], [address] [place] [address] [facility] LAB [facility] Glucose,Bedsideon 03-22-2021 Glucose [Mass/Vol] 134 mg/dL High 70-100 [facility] Comment on above: Result Comment: Test performed by glucose meter. Results may be 10%-15% lower than serum/plasma values. (CLIA ID [id number]) Performed By: #### H EMDF, BMP3 #### [facility] [address] [place] [address] Glucose [Mass/Vol] 190 mg/dL High 70-100 [facility] Comment on above: Result Comment: Test performed by glucose meter. Results may be 10%-15% lower than serum/plasma values. (CLIA ID [id number]) Performed By: #### B GLU #### [facility] [address] [place] [address] Glucose [Mass/Vol] 200 mg/dL High 70-100 [facility] Comment on above: Result Comment: Test performed by glucose meter. Results may be 10%-15% lower than serum/plasma values. (CLIA ID [id number]) Performed By: #### B GLU #### [facility] [address] [place] [address] Glucose [Mass/Vol] 181 mg/dL High 70-100 [facility] Comment on above: Result Comment: Test performed by glucose meter. Results may be 10%-15% lower than serum/plasma values. (CLIA ID [id number]) Performed By: #### B GLU #### [facility] [address] [facility] [place] [address] Glucose [Mass/Vol] 186 mg/dL High 70-100 [facility] Comment on above: Result Comment: Test performed by glucose meter. Results may be 10%-15% lower than serum/plasma values. (CLIA ID [id number]) Performed By: #### B GLU #### [facility] [address] [place] [address] Hemoglobin A1Con 03-22-2021 Glucose [Mass/Vol] 108 mg/dL Normal [facility] Comment on above: Performed By: #### B GLU #### [facility] [address] [place] [address] HbA1c (Bld) [Mass fraction] 5.4 % Normal [facility] Comment on above: Result Comment: Norm al less than 5.7% Prediabetes 5.7% to 6.4% Diabetes 6.5% or higher --HgbA1C levels may not be accurate in patients who have renal disease, received recent blood transfusions, are anemic, or who have dyshemoglobinemia. Performed By: #### B GLU #### [facility] [address] [facility] [address] HbA1c (Bld) [Mass fraction] 5.4 % [facility] Comment on above: Normal less than 5.7 % Prediabetes 5.7% to 6.4% Diabetes 6.5% or higher --HgbA1C levels may not be accurate in patients who have renal disease, received recent blood transfusions, are anemic, or who have dyshemoglobinemia. Magnesium [Mass/Vol] 108 mg/dL [facility] A Test Performed by [facility], [address] [facility] [place] [address] [facility] LAB [facility] Hemogram w/ Autodiffon 03-22 Abs Baso Cnt 0.0 10*3/uL Normal 0.0-0.2 [facility] Comment on above: Performed By: #### B GLU #### [facility] [address] [place] [address] Abs Neutrophile Cnt 12.3 10*3/uL High 1.8-7.0 [facility] Comment on above: Performed By: #### B GLU #### [facility] [address] [facility] [address] Basophils/100 WBC (Bld) 0.2 % Normal 0.0-2.0 [facility] Comment on above: Performed By: #### B GLU #### [facility] [address] [place] [address] Eosinophils (Bld) [#/Vol] 0.0 10*3/uL Normal 0.0-0.5 [facility] Comment on above: Performed By: #### B GLU #### [facility] [address] [place] [address] Eosinophils/100 WBC (Bld) 0.0 % Low 1.0-6.0 [facility] Comment on above: Performed By: #### B GLU #### [facility] [address] [place] [address] Erythrocyte distribution width (RBC) [Ratio] 12.8 % Normal 11.5-14.5 [facility] Comment on above: Performed By: #### B GLU #### [facility] [address] [place] [address] Granulocytes/100 WBC (Bld) 92.7 % High 40.0-80.0 [facility] Comment on above: Performed By: #### B GLU #### [facility] [address] [place] [address] Hematocrit (Bld) [Volume fraction] 35.9 % Low 40.0-52.0 [facility] Comment on above: Performed By: #### B GLU #### [facility] [address] [place] [address] Hemoglobin (Bld) [Mass/Vol] 12.4 g/dL Low 13.0-18.0 [facility] Comment on above: Performed By: #### B GLU #### [facility] [address] [place] [address] Lymphocytes (Bld) [#/Vol] 0.5 10*3/uL Low 1.0-4.3 [facility] Comment on above: Performed By: #### B GLU #### [facility] [address] [place] [address] Lymphocytes/100 WBC (Bld) 3.6 % Low 20.0-40.0 [facility] Comment on above: Performed By: #### B GLU #### [facility] [address] [place] [address] MCH (RBC) [Entitic mass] 31.6 pg Normal 26.0-34.0 [facility] Comment on above: Performed By: #### B GLU #### [facility] [address] [place] [address] MCHC 34.6 % Normal 32.0-36.0 [facility] Comment on above: Performed By: #### B GLU #### [facility] [address] [place] [address] MCV (RBC) [Entitic vol] 91.2 fL Normal 80.0-98.0 [facility] Comment on above: Performed By: #### B GLU #### [facility] [address] [place] [address] Monocytes (Bld) [#/Vol] 0.5 10*3/uL Normal 0.0-0.8 [facility] Comment on above: Performed By: #### B GLU #### [facility] [address] [place] [address] Monocytes/100 WBC (Bld) 3.5 % Normal 2.0-10.0 [facility] Comment on above: Performed By: #### B GLU #### [facility] [address] [place] [address] Platelet mean volume (Bld) [Entitic vol] 9.5 fL Normal 7.4-10.4 [facility] Comment on above: Performed By: #### B GLU #### [facility] [address] [place] [address] Platelets (Bld) [#/Vol] 158 10*3/uL Normal 140-440 [facility] Comment on above: Performed By: #### B GLU #### [facility] [address] [place] [address] RBC (Bld) [#/Vol] 3.93 10*6/uL Low 4.40-5.90 [facility] Comment on above: Performed By: #### B GLU #### [facility] [address] [place] [address] WBC (Bld) [#/Vol] 13.3 10*3/uL High 3.6-10.7 [facility] Comment on above: Performed By: #### B GLU #### [facility] [address] [place] [address] MRSA by PCRon 03-22-2021 Staph Aureus Sc No S. aureus detected. Negative nasal MRSA PCR has a high negative predictive value for MRSA pneumonia. Consider stopping vancomycin if no other clinical indication. Contact Antimicrobial Stewardship for further recommendations. The analytical performance characteristics of this assay have been determined by [employer] in accordance with CLIA regulations. The modifications have not been cleared or approved by the U. S. Food and Drug Administration; however, the FDA has determined that such clearance or approval is not necessary. [facility] Test Performed by [facility], [address] [place], [place] [id number] [place] [address] LAB [facility] POCT GlucoseOrdered By: Pascual Morgan on 03-22-2021 Glucose [Mass/Vol] 134 mg/dL High 70 - 100 mg/dL [facility] Work Phone: Comment on above: Test performed by gl ucose meter. Results may be 10%-15% lower than serum/plasma values. (CLIA ID [id number]) Interpretation and review of laboratory results Abnormal [facility] Work Phone: [facility] Work Phone: POCT Glucoseon 03-22-2021 Test Performed by [facility] [employer] [facility], [address] [place], [place] [id number] [place] [address] LAB Glucose [Mass/Vol] 190 mg/dL High 70 - 100 mg/dL [facility] Comment on above: Test performed by gl ucose meter. Results may be 10%-15% lower than serum/plasma values. (CLIA ID [id number]) Interpretation and review of laboratory results Abnormal [facility] Test Performed by [facility] [employer] [facility], [address] [place], [place] [id number] [place] [address] LAB [facility] Glucose [Mass/Vol] 200 mg/dL High 70 - 100 mg/dL [facility] Comment on above: Test performed by gl ucose meter. Results may be 10%-15% lower than serum/plasma values. (CLIA ID [id number]) Interpretation and review of laboratory results Abnormal [facility] Test Performed by [facility], [address] [place], [place] [id number] [place] [address] LAB [facility] Glucose [Mass/Vol] 181 mg/dL High 70 - 100 mg/dL [facility] Comment on above: Test performed by gl ucose meter. Results may be 10%-15% lower than serum/plasma values. (CLIA ID [id number]) Interpretation and review of laboratory results Abnormal [facility] Test Performed by [facility], [address] LAB [facility] Glucose [Mass/Vol] 186 mg/dL High 70 - 100 mg/dL [facility] Comment on above: Test performed by gl ucose meter. Results may be 10%-15% lower than serum/plasma values. (CLIA ID [id number]) Interpretation and review of laboratory results Abnormal [facility] Test Performed by [facility] [employer] [facility], [address] LAB [facility] Procalcitoninon 03-22-2021 Procalcitonin 0.09 ng/mL Normal 0.00-0.09 [facility] [employer] Comment on above: Performed By: #### H [facility] #### [facility] [address] [place] [address] Interpretation See Below [facility] Comment on above: PCT <0.50 = Low risk of severe sepsis and/or septic shock. PCT >2.00 = High risk of severe sepsis and/or septic shock. Procalcitonin 0.09 ng/mL 0.00 - 0.09 ng/mL [facility] Test Performed by [facility] [employer] [facility], [address] [place] [id number] [place] [address] LAB [facility] Staph Aureus Complete Nasalo n 03-22-2021 Staph Aureus Complete Nasal Staph Screen --> Status: F No S. aureus detected. Negative nasal MRSA PCR has a high negative predictive value for MRSA pneumonia. Consider stopping vancomycin if no other clinical indication. Contact Antimicrobial Stewardship for further recommendations. The analytical performance characteristics of this assay have been determined by [employer] in accordance with CLIA regulations. The modifications [...] of this assay have been determined by [facility] in accordance with CLIA regulations. The modifications have not been cleared or approved by the U. S. Food and Drug Administration; however, the FDA has determined that such clearance or approval is not necessary. Normal [facility] Comment on above: Performed By: #### S APCR ####[facility] [place] [address] Vancomycin Troughon 03-22-20 21 Vancomycin Trough 8.1 ug/mL Low 15.0-20.0 [facility] Comment on above: Result Comment: . Performed By: #### B GLU #### [facility] [address] [place] [address] Vancomycin, Troughon 021 Interpretation and review of laboratory results Abnormal [facility] Vancomycin Tr 8.1 ug/mL Low 15.0 - 20.0 ug/mL [facility] Comment on above: . Test Performed by [facility], [address] [place] [address] [facility] LAB [facility] Basic Metabolic Panelon 03-02 Anion gap [Moles/Vol] 7 mmol/L Normal 3-13 [facility] Comment on above: Performed By: #### H EMDF, BMP3 #### [facility] [address] [place] [address] Calcium [Mass/Vol] 8.1 mg/dL Low 8.4-10.4 [facility] Comment on above: Performed By: #### H EMDF, BMP3 #### [facility] [address] [place] [address] CO2 [Moles/Vol] 26 mmol/L Normal 22-30 [facility] Comment on above: Performed By: #### H EMDF, BMP3 #### [facility] [address] [place] [address] Glucose [Mass/Vol] 156 mg/dL High 70-100 [facility] Comment on above: Performed By: #### H EMDF, BMP3 #### [facility] [address] [place] [address] Urea nitrogen [Mass/Vol] 19 mg/dL High 7-17 [facility] Comment on above: Performed By: #### H MAYKEL BMP3 #### [facility] [address] [place] [address] Creatinine [Mass/Vol] 0.53 mg/dL Normal 0.52-1.25 [facility] Comment on above: Performed By: #### H MAYKEL BMP3 #### [facility] [address] [place] [address] eGFR OTHER > 90.0 Normal >60 [facility] Comment on above: Result Comment: KDIG O [...] Performed By: #### H MAYKEL BMP3 #### [facility] [address] [place] [address] GFR/1.73 sq M.predicted among blacks MDRD (S/P/Bld) [Vol rate/Area] mL/min/{1.73_m2} Normal >60 [facility] Comment on above: Performed By: #### H MAYKEL BMP3 #### [facility] [address] [place] [address] Chloride [Moles/Vol] 103 mmol/L Normal 98-107 [facility] Comment on above: Performed By: #### H MAYKEL BMP3 #### [facility] [address] [place] [address] Potassium [Moles/Vol] 3.4 mmol/L Low 3.5-5.1 [facility] Comment on above: Performed By: #### H MITALI BRAR #### [facility] [address] [place] [address] Sodium [Moles/Vol] 136 mmol/L Normal 135-145 [facility] Comment on above: Performed By: #### H KORIN BRAR3 #### [facility] [address] [place] [address] Basic Metabolic Panel w/ Ref marciano to MG 03-21-2021 Anion gap [Moles/Vol] 7 mmol/L 3 - 13 mmol/L [facility] Work Phone: Calcium [Mass/Vol] 8.1 mg/dL Low 8.4 - 10. 4 mg/dL [facility] Work Phone: Chloride [Moles/Vol] 103 mmol/L 98 - 10 7 mmol/L [facility] Work Phone: CO2 [Moles/Vol] 26 mmol/L 22 - 30 mmol/L [facility] Work Phone: Creatinine [Mass/Vol] 0.53 mg/dL 0.52 - 1.25 mg/dL [facility] Work Phone: EGFR IF NonAfrican Cymraes >90.0 >60 mL/min [facility] Work Phone: Comment on above: KDIGO [...] MDRD (S/P/Bld) [Vol rate/Area] mL/min/{1.73_m2} >60 mL/min [email or web address] Work Phone: Glucose [Mass/Vol] 156 mg/dL High 70 - 100 mg/dL [email or web address] Work Phone: Interpretation and review of laboratory results Abnormal [facility] Work Phone: Potassium [Moles/Vol] 3.4 mmol/L Low 3.5 - 5.1 mmol/L [facility] Work Phone: Sodium [Moles/Vol] 136 mmol/L 135 - 145 mmol/L [facility] Work Phone: Urea nitrogen (BldV) [Mass/Vol] 19 mg/dL High 7 - 17 mg/dL [facility] Work Phone: Test Performed by [facility], [address] [place] [id number] [place] [address] LAB [facility] Work Phone: CBCon 03-21-2021 Hematocrit (Bld) [Volume fraction] 35.4 % Low 40.0 - 52.0 % [facility] Work Phone: Hemoglobin.gastrointest inal spec 1 Ql (Stl) 11.9 g/dL Low 13.0 - 18.0 g/dL [facility] Work Phone: Interpretation and review of laboratory results Abnormal [facility] Work Phone: MCH (RBC) [Entitic mass] 30.5 pg 26.0 - 34.0 pg [facility] Work Phone: MCHC (RBC) [Mass/Vol] 33.7 % 32.0 - 36.0 % [facility] Work Phone: MCV (RBC) [Entitic vol] 90.6 fL 80.0 - 98.0 fL [email or web address] Work Phone: Platelet distribution width (Bld) [Ratio] 13.1 % 11.5 - 14.5 % [email or web address] Work Phone: Platelet mean volume (Bld) [Entitic vol] 9.1 fL 7.4 - 10.4 fL [employer] Work Phone: Platelets (Bld) [#/Vol] 136 10*3/uL Low 140 - 440 10*3/uL [employer] Work Phone: RBC (Bld) [#/Vol] 3.91 10*6/uL Low 4.40 - 5.9 0 10*6/uL [employer] Work Phone: WBC (Bld) [#/Vol] 7.1 10*3/uL 3.6 - 10.7 10*3/uL [email or web address] Work Phone: Test Performed by [facility] [employer] [facility], [address] [place], [place] [id number] [place] [address] LAB [facility] Work Phone: Glucose,Bedsideon 03-21-2021 Glucose [Mass/Vol] 131 mg/dL High 70-100 [facility] Comment on above: Result Comment: Test performed by glucose meter. Results may be 10%-15% lower than serum/plasma values. (CLIA ID [id number]) Performed By: #### B GLU #### [facility] [employer] [address] [place] [address] Glucose [Mass/Vol] 230 mg/dL High 70-100 [facility] Comment on above: Result Comment: Test performed by glucose meter. Results may be 10%-15% lower than serum/plasma values. (CLIA ID [id number]) Performed By: #### B GLU #### [facility] [employer] [facility] [address] [place] [address] Hemogramon 03-21-2021 Erythrocyte distribution width (RBC) [Ratio] 13.1 % Normal 11.5-14.5 [facility] Comment on above: Performed By: #### H EMDF, BMP3 #### [facility] [address] [place] [address] Hematocrit (Bld) [Volume fraction] 35.4 % Low 40.0-52.0 [facility] Comment on above: Performed By: #### H EMDF, BMP3 #### [facility] [address] [place] [address] Hemoglobin (Bld) [Mass/Vol] 11.9 g/dL Low 13.0-18.0 [facility] Comment on above: Performed By: #### H EMDF, BMP3 #### [facility] [address] [place] [address] MCH (RBC) [Entitic mass] 30.5 pg Normal 26.0-34.0 [facility] Comment on above: Performed By: #### H EMDF, BMP3 #### [facility] [address] [place] [address] MCHC 33.7 % Normal 32.0-36.0 [facility] Comment on above: Performed By: #### H EMDF, BMP3 #### [facility] [address] [place] [address] MCV (RBC) [Entitic vol] 90.6 fL Normal 80.0-98.0 [facility] Comment on above: Performed By: #### H EMDF, BMP3 #### [facility] [address] [place] [address] Platelet mean volume (Bld) [Entitic vol] 9.1 fL Normal 7.4-10.4 [facility] Comment on above: Performed By: #### H EMDF, BMP3 #### [facility] [address] [place] [address] Platelets (Bld) [#/Vol] 136 10*3/uL Low 140-440 [facility] Comment on above: Performed By: #### H EMDF, BMP3 #### [facility] [address] [place] [address] RBC (Bld) [#/Vol] 3.91 10*6/uL Low 4.40-5.90 [facility] Comment on above: Performed By: #### H EMDF, BMP3 #### [facility] [address] [place] [address] WBC (Bld) [#/Vol] 7.1 10*3/uL Normal 3.6-10.7 [facility] Comment on above: Performed By: #### H KORIN BRAR3 #### [facility] [address] [place] [address] Magnesiumon 03-21-2021 Magnesium [Mass/Vol] 2.2 mg/dL Normal 1.6-2.3 [facility] Comment on above: Performed By: #### H MAYKEL BMP3 #### [facility] [address] [place] [address] Magnesium [Mass/Vol] 2.2 mg/dL 1.6 - 2 .3 mg/dL [facility] Work Phone: Test Performed by [facility], [address] LAB [facility] Work Phone: POCT Glucoseon 03-21-2021 Glucose [Mass/Vol] 131 mg/dL High 70 - 100 mg/dL [facility] Comment on above: Test performed by gl ucose meter. Results may be 10%-15% lower than serum/plasma values. (CLIA ID [id number]) Interpretation and review of laboratory results Abnormal [facility] Test Performed by [facility], [address] LAB [facility] Glucose [Mass/Vol] 230 mg/dL High 70 - 100 mg/dL [facility] Comment on above: Test performed by gl ucose meter. Results may be 10%-15% lower than serum/plasma values. (CLIA ID [id number]) Interpretation and review of laboratory results Abnormal [facility] Test Performed by [facility], [address] LAB [facility] Procalcitoninon 03-21-2021 Interpretation See Below Normal [facility] Comment on above: Result Comment: PCT <0.50 = Low risk of severe sepsis and/or septic shock. PCT >2.00 = High risk of severe sepsis and/or septic shock. Performed By: #### H MAYKEL BMP3 #### [facility] [address] [place] [address] Basic Metabolic Panelon 11-2 0-2020 Calcium [Mass/Vol] 8.4 mg/dL Normal 8.4-10.4 [facility] Comment on above: Performed By: #### H MAYKEL BMP3 #### [facility] [address] [place] [address] Anion gap [Moles/Vol] 6 mmol/L Normal 3-13 [facility] Comment on above: Performed By: #### H MAYKEL BMP3 #### [facility] [address] [place] [address] CO2 [Moles/Vol] 27 mmol/L Normal 22-30 [facility] Comment on above: Performed By: #### H MAYKEL BMP3 #### [facility] [address] [place] [address] Glucose [Mass/Vol] 106 mg/dL High 70-100 [facility] Comment on above: Performed By: #### H MAYKEL BMP3 #### [facility] [address] [place] [address] Urea nitrogen [Mass/Vol] 14 mg/dL Normal 7-17 [facility] Comment on above: Performed By: #### H MAYKEL BMP3 #### [facility] [address] [place] [address] Creatinine [Mass/Vol] 0.51 mg/dL Low 0.52-1.25 [facility] Comment on above: Performed By: #### H MAYKEL BMP3 #### [facility] [address] [place] [address] eGFR OTHER > 90.0 Normal >60 [facility] Comment on above: Result Comment: KDIG O [...] tubular creatinine secretion. Performed By: #### H MAYKEL, BMP3 #### [facility] [address] [place] [address] GFR/1.73 sq M.predicted among blacks MDRD (S/P/Bld) [Vol rate/Area] mL/min/{1.73_m2} Normal >60 [facility] Comment on above: Performed By: #### H MAYKEL, BMP3 #### [facility] [address] [place] [address] Chloride [Moles/Vol] 104 mmol/L Normal 98-107 [facility] Comment on above: Performed By: #### H MAYKEL, BMP3 #### [facility] [address] [place] [address] Potassium [Moles/Vol] 3.9 mmol/L Normal 3.5-5.1 [facility] Comment on above: Performed By: #### H MAYKEL, BMP3 #### [facility] [address] [place] [address] Sodium [Moles/Vol] 137 mmol/L Normal 135-145 [facility] Comment on above: Performed By: #### H MAYKEL, BMP3 #### [facility] [address] [place] [address] Anion gap [Moles/Vol] 6 mmol/L 3 - 13 mmol/L [facility] Work Phone: Calcium [Mass/Vol] 8.4 mg/dL 8.4 - 10. 4 mg/dL [facility] Work Phone: Chloride [Moles/Vol] 104 mmol/L 98 - 10 7 mmol/L [facility] Work Phone: CO2 [Moles/Vol] 27 mmol/L 22 - 30 mmol/L [facility] Work Phone: Creatinine [Mass/Vol] 0.51 mg/dL Low 0.52 - 1.25 mg/dL [email or web address] Work Phone: EGFR IF NonAfrican Cymraes >90.0 >60 mL/min [email or web address] Work Phone: Comment on above: KDIGO guidelines [...] MDRD (S/P/Bld) [Vol rate/Area] mL/min/{1.73_m2} >60 mL/min [email or web address] Work Phone: Glucose [Mass/Vol] 106 mg/dL High 70 - 100 mg/dL [email or web address] Work Phone: Interpretation and review of laboratory results Abnormal [email or web address] Work Phone: Potassium [Moles/Vol] 3.9 mmol/L 3.5 - 5.1 mmol/L [email or web address] Work Phone: Sodium [Moles/Vol] 137 mmol/L 135 - 145 mmol/L [email or web address] Work Phone: Urea nitrogen (BldV) [Mass/Vol] 14 mg/dL 7 - 17 mg/dL [email or web address] Work Phone: Test Performed by [facility], [address] [place], [place] [address] [facility] [email or web address] Work Phone: C-Reactive Proteinon 11-20-2 021 CRP [Mass/Vol] 228.1 mg/L High 0.0-9.9 [facility] Comment on above: Result Comment: . Performed By: #### H EMDF, BMP3 #### [facility] [employer] [address] [place] [address] CRP [Mass/Vol] 228.1 mg/L High 0.0 - 9.9 mg/L [facility] Work Phone: Comment on above: . Interpretation and review of laboratory results Abnormal [facility] Work Phone: Test Performed by [facility] [employer], [address], [place] [address] [facility] Work Phone: COVID and Resp PCR [...] PCR. _ Expected Result: Not Detected [employer] Upper Respiratory Pathogens PCR Panel can detect the following targets: SARS-CoV-2, Adenovirus, Coronavirus 229E, Coronavirus HKU1, Coronavirus NL63, Coronavirus OC43, Human Metapneumovirus, Human Rhinovirus/Enteroviru s, Influenza A, Influenza B, Parainfluenza Virus 1, Parainfluenza Virus 2, Parainfluenza Virus 3, Parainfluenza Virus 4, Respiratory Syncytial Virus, Bordetella pertussis, Bordetella parapertussis, Chlamydia pneumoniae, Mycoplasma pneumoniae. Method: Real-time PCR. Abnormal [facility] Comment on above: Performed By: #### B FRP2 #### [employer] [address] [place] [address] EKG 12 Lead - Chest Painon 1 05-20-2020 [employer] Test Date: 2021-03-19 Pat Name: KATHYA HOOPER Department: 1 Room: 465 Gender: M Night Filler: SHAILA : 1955 Requested By: BRADY DESAI Order Number: [id number] Reading MD: Fei Menjivar Measurements Intervals [place] Rate: 102 P: 71 RI: 172 QRS: -30 QRSD: 156 T: 85 QT: 412 QTc: 537 Interpretive Statements SINUS TACHYCARDIA LEFT BUNDLE BRANCH BLOCK Electronically Signed On 03-20-2021 22:47:41 EST by Fei BARNETT SB CARDIOLOGY Fei Menjivar MD - 03/20/2021 [employer] Test Date: 2021-03-19 Pat Name: KATHYA HOOPER Department: 1 Room: 465 Gender: M Night Filler: SHAILA : 1955 Requested By: BRADY DESAI Order Number: [id number] Reading MD: Fei Menjivar Measurements Intervals [place] Rate: 102 P: 71 RI: 172 QRS: -30 QRSD: 156 T: 85 QT: 412 QTc: 537 Interpretive Statements SINUS TACHYCARDIA LEFT BUNDLE BRANCH BLOCK Electronically Signed On 03-20-2021 22:47:41 EST by Fei Menjivar [employer] Work Phone: EKG 12 Lead - Chest PainOrde red By: Fei Menjivar on 03-20-2021 [email or web address] Work Phone: Lactic Acidon 03-20-2021 Lactate [Moles/Vol] 0.7 mmol/L Normal 0.7-2.0 [employer] Comment on above: Performed By: #### H MAYKEL, BMP3 #### [employer] [address] [place] [address] Lactic Acid, Plasmaon 2020 Lactate [Moles/Vol] 0.7 mmol/L 0.7 - 2. 0 mmol/L [email or web address] Work Phone: Test Performed by [employer], [address] [place], [place] [id number] [place] [address] LAB [facility] Work Phone: PROCALCITONINon 03-20-2021 Interpretation See Below [facility] Work Phone: Comment on above: PCT <0.50 = Low risk of severe sepsis and/or septic shock. PCT >2.00 = High risk of severe sepsis and/or septic shock. Interpretation and review of laboratory results Abnormal [facility] Work Phone: Test Performed by [facility], [address] [place] [id number] [place] [address] LAB [facility] Work Phone: Procalcitoninon 03-20-2021 Procalcitonin 0.14 ng/mL High 0.00-0.09 [facility] Work Phone: Comment on above: Performed By: #### H EMDF, BMP3 #### [facility] [employer] [facility] [address] [place] [address] Interpretation See Below Normal [facility] Comment on above: Result Comment: PCT <0.50 = Low risk of severe sepsis and/or septic shock. PCT >2.00 = High risk of severe sepsis and/or septic shock. Performed By: #### H EMDF, BMP3 #### [facility] [employer] [facility] [address] [place] [address] Troponinon 03-20-2021 Interpretation and review of laboratory results Abnormal [facility] Work Phone: Troponin I.cardiac [Mass/Vol] 0.037 ng/mL High 0.000 - 0.034 ng/mL [facility] Work Phone: Comment on above: . Test Performed by [facility] [employer], [address] [place], [place] [id number] [place] [address] LAB [facility] Work Phone: Troponin Ion 03-20-2021 Troponin I.cardiac [Mass/Vol] 0.037 ng/mL High 0.000-0.034 [facility] Comment on above: Result Comment: . Performed By: #### H EMDF, BMP3 #### [facility] [address] [place] [address] Arterial Blood Gas Respirato yasmine 03-19-2021 Base Excess 1.2 mmol/L Normal -3.0-3.0 [facility] Comment on above: Performed By: #### B GLU #### [facility] [address] [place] [address] CO2 [Moles/Vol] 25.6 mmol/L Normal 23.0-27.0 [facility] Comment on above: Performed By: #### B GLU #### [facility] [address] [place] [address] FIO2 5 Normal [facility] Comment on above: Result Comment: Perf ormed by KEE ID: [id number] [place], [place] Performed By: #### B GLU #### [facility] [address] [place] [address] HCO3 (Bld) [Moles/Vol] 24.6 mmol/L Normal 21.0-25.0 [facility] Comment on above: Performed By: #### B GLU #### [facility] [address] [place] [address] Oxygen (Bld) [Partial pressure] 56.7 mm[Hg] Low 80.0-100.0 [facility] Comment on above: Performed By: #### B GLU #### [facility] [address] [place] [address] Oxygen saturation in Blood 91.0 % Low 95.0-100.0 [facility] Comment on above: Performed By: #### B GLU #### [facility] [address] [place] [address] pCO2 33.9 mm[Hg] Low 35.0-45.0 [facility] Comment on above: Performed By: #### B GLU #### [facility] [address] [place] [address] pH 7.468 High 7.350-7.450 [facility] Comment on above: Performed By: #### B GLU #### [facility] [address] [place] [address] Basic Metabolic Panelon 03-011 Anion gap [Moles/Vol] 9 mmol/L Normal 3-13 [facility] Comment on above: Performed By: #### B MP3, TROPN ####[employer] [address] [place] [address] Calcium [Mass/Vol] 8.5 mg/dL Normal 8.4-10.4 [facility] Comment on above: Performed By: #### B MP3, TROPN ####[employer] [address] [place] [address] CO2 [Moles/Vol] 26 mmol/L Normal 22-30 [facility] Comment on above: Performed By: #### B MP3, TROPN ####[employer] [id number] [place] [address] Creatinine [Mass/Vol] 0.48 mg/dL Low 0.52-1.25 [facility] Comment on above: Performed By: #### B MP3, TROPN ####[employer] [address] [place] [address] eGFR OTHER > 90.0 Normal >60 [facility] Comment on above: Result Comment: KDIG O [...] secretion. Performed By: #### B MP3, TROPN ####[employer] [address] [place] [address] GFR/1.73 sq M.predicted among blacks MDRD (S/P/Bld) [Vol rate/Area] mL/min/{1.73_m2} Normal >60 [facility] Comment on above: Performed By: #### B MP3, TROPN ####[facility] [place] [address] Glucose [Mass/Vol] 132 mg/dL High 70-100 [facility] Comment on above: Performed By: #### B MP3, TROPN ####[facility] [place] [address] Urea nitrogen [Mass/Vol] 16 mg/dL Normal 7-17 [facility] Comment on above: Performed By: #### B MP3, TROPN ####[facility] [place] [address] Chloride [Moles/Vol] 102 mmol/L Normal 98-107 [facility] Comment on above: Performed By: #### B MP3, TROPN ####[facility] [place] [address] Potassium [Moles/Vol] 4.1 mmol/L Normal 3.5-5.1 [facility] Comment on above: Performed By: #### B MP3, TROPN ####[facility] [place] [address] Sodium [Moles/Vol] 137 mmol/L Normal 135-145 [facility] Comment on above: Performed By: #### B MP3, TROPN ####[facility] [place] [address] Anion gap [Moles/Vol] 9 mmol/L 3 - 13 mmol/L [facility] Calcium [Mass/Vol] 8.5 mg/dL 8.4 - 10. 4 mg/dL [facility] Chloride [Moles/Vol] 102 mmol/L 98 - 10 7 mmol/L [facility] CO2 [Moles/Vol] 26 mmol/L 22 - 30 mmol/L [facility] Creatinine [Mass/Vol] 0.48 mg/dL Low 0.52 - 1.25 mg/dL [facility] EGFR IF NonAfrican Cymraes >90.0 >60 mL/min [facility] Comment on above: KDIGO guidelines pro [...] 16 mg/dL 7 - 17 mg/dL [facility] Test Performed by [facility], [address] [place] [address] LAB [facility] CBC Auto Differentialon 03-01 Absolute Baso [...] Real-time, RT-PCR This assay was developed by [employer] and distributed under an Emergency Use Authorization (EUA) granted by the FDA for the qualitative detection of nucleic acids from SARS-CoV-2, Influenza A, Influenza B, and Respiratory Syncytial Virus. Provider and patient fact sheets can be found at https://www.[facility].gov/m edia/692342/download and https://www.fda.gov/m edia/065389/download. Abnormal [facility] SARS-CoV-2 (COVID-19) RNA SHIRLEY+probe Ql (Unsp spec) Not detected [facility] Test Performed by [facility], [address] [place] [address] LAB [facility] CR Chest Portableon 03-19-20 21 CR Chest Portable Patient Name: KATHYA HOOPER Diagnostic Radiology ACCESSION EXAM DATE/TIME PROCEDURE ORDERING PROVIDER [id number] 03/19/2021 17:10 EST CR Chest Portable [id number] -BRADY DESAI CPT code 43284 Reason For Exam (CR Chest Portable) hypoxia [...] Transcribed Date and Time: 03/19/2021 5:22 Normal [facility] ED Provider Noteon ED Provider Note Emergency Department Encounter [facility] ED Patient: Kathya Hooper : 1955 Date of Evaluation: 03/19/2021 ED Provider: Brady Desai DO Chief Complaint Chief Complaint Patient presents with ? Shortness of Breath ALGAACIQ I wore appropriate PPE for the entirety of this encounter. Does this patient come from an ECF, SNF, Rehab, Longterm or other Congregate setting: yes (If yes [...] otherwise acutely negative except as in the ALGAACIQ. Past History Past Medical History: Diagnosis Date [...] and Family: Not on file ? Attends Zoroastrian Services: Not on file ? Active Member [...] TABLET T (more content not included)... Normal [facility] Hemogram w/ Autodiffon 03-19 Abs Baso Cnt 0.1 10*3/uL Normal 0.0-0.2 [facility] Comment on above: Performed By: #### B GLU #### [facility] [address] [place] [address] Abs Neutrophile Cnt 7.2 10*3/uL High 1.8-7.0 [facility] Comment on above: Performed By: #### B GLU #### [facility] [address] [place] [address] Basophils/100 WBC (Bld) 0.6 % Normal 0.0-2.0 [facility] Comment on above: Performed By: #### B GLU #### [facility] [address] [place] [address] Eosinophils (Bld) [#/Vol] 0.0 10*3/uL Normal 0.0-0.5 [facility] Comment on above: Performed By: #### B GLU #### [facility] [address] [place] [address] Eosinophils/100 WBC (Bld) 0.2 % Low 1.0-6.0 [facility] Comment on above: Performed By: #### B GLU #### [facility] [address] [place] [address] Erythrocyte distribution width (RBC) [Ratio] 13.0 % Normal 11.5-14.5 [facility] Comment on above: Performed By: #### B GLU #### [facility] [address] [place] [address] Granulocytes/100 WBC (Bld) 79.0 % Normal 40.0-80.0 [facility] Comment on above: Performed By: #### B GLU #### [facility] [address] [place] [address] Hematocrit (Bld) [Volume fraction] 38.5 % Low 40.0-52.0 [facility] Comment on above: Performed By: #### B GLU #### [facility] [address] [place] [address] Hemoglobin (Bld) [Mass/Vol] 13.1 g/dL Normal 13.0-18.0 [facility] Comment on above: Performed By: #### B GLU #### [facility] [address] [place] [address] Lymphocytes (Bld) [#/Vol] 1.0 10*3/uL Normal 1.0-4.3 [facility] Comment on above: Performed By: #### B GLU #### [place] [address] [place] [address] Lymphocytes/100 WBC (Bld) 10.8 % Low 20.0-40.0 [facility] Comment on above: Performed By: #### B GLU #### [place] [address] [place] [address] MCH (RBC) [Entitic mass] 30.9 pg Normal 26.0-34.0 [facility] Comment on above: Performed By: #### B GLU #### [place] [address] [place] [address] MCHC 33.9 % Normal 32.0-36.0 [facility] Comment on above: Performed By: #### B GLU #### [place] [address] [place] [address] MCV (RBC) [Entitic vol] 91.1 fL Normal 80.0-98.0 [facility] Comment on above: Performed By: #### B GLU #### [place] [address] [place] [address] Monocytes (Bld) [#/Vol] 0.9 10*3/uL High 0.0-0.8 [facility] Comment on above: Performed By: #### B GLU #### [place] [address] [place] [address] Monocytes/100 WBC (Bld) 9.4 % Normal 2.0-10.0 [facility] Comment on above: Performed By: #### B GLU #### [place] [address] [place] [address] Platelet mean volume (Bld) [Entitic vol] 9.9 fL Normal 7.4-10.4 [facility] Comment on above: Performed By: #### B GLU #### [facility] [address] [place] [address] Platelets (Bld) [#/Vol] 163 10*3/uL Normal 140-440 [facility] Comment on above: Performed By: #### B GLU #### [facility] [address] [place] [address] RBC (Bld) [#/Vol] 4.23 10*6/uL Low 4.40-5.90 [facility] Comment on above: Performed By: #### B GLU #### [facility] [address] [place] [address] WBC (Bld) [#/Vol] 9.1 10*3/uL Normal 3.6-10.7 [facility] Comment on above: Performed By: #### B GLU #### [facility] [address] [place] [address] Lactic Acidon 03-19-2021 Lactate [Moles/Vol] 2.3 mmol/L Critically high 0.7-2.0 [facility] Comment on above: Performed By: #### L ACT3 ####[facility] [place] [address] Lactic Acid, Plasmaon 2020 Lactate [Moles/Vol] 2.3 mmol/L Critically high 0.7 - 2.0 mmol/L [facility] No Panel Informationon 03-19 Interpretation and review of laboratory results Abnormal [facility] Test Performed by [facility], [address] [place] [address] [facility] RBC MORPHOLOGYon 03-19-2021 Poikilocytes Slight [facility] RBC (Bld) [#/Vol] ABNORMAL [facility] Tear Drop Cells Slight [facility] RBC Morphologyon 03-19-2021 Ovalocytes Slight Normal [facility] Comment on above: Performed By: #### B GLU #### [facility] [address] [place] [address] Poikilocytosis Slight Normal [facility] Comment on above: Performed By: #### B GLU #### [facility] [address] [place] [address] Polychromasia Slight Normal [facility] Comment on above: Performed By: #### B GLU #### [facility] [address] [place] [address] RBC morphology finding Nom (Bld) ABNORMAL Normal [facility] Comment on above: Performed By: #### B GLU #### [facility] [address] [place] [address] Tear Drop Forms Slight Normal [facility] Comment on above: Performed By: #### B GLU #### [facility] [address] [place] [address] Respiratory Panel, Molecular , with COVID-19 (Restricted: peds pts or suitable admitted adults)on 03-19-2021 Interpretation and review of laboratory results Abnormal [facility] Respiratory Panel Molecular, with COVID POSITIVE: Respiratory Syncytial Virus DETECTED. _ Expected Result: Not Detected [employer] Upper Respiratory Pathogens PCR Panel can detect the following targets: SARS-CoV-2, Adenovirus, Coronavirus 229E, Coronavirus HKU1, Coronavirus NL63, Coronavirus OC43, Human Metapneumovirus, Human Rhinovirus/Enteroviru s, Influenza A, Influenza B, Parainfluenza Virus 1, Parainfluenza Virus 2, Parainfluenza Virus 3, Parainfluenza Virus 4, Respiratory Syncytial Virus, Bordetella pertussis, Bordetella parapertussis, Chlamydia pneumoniae, Mycoplasma pneumoniae. Method: Real-time PCR. Abnormal [facility] Test Performed by [facility], [address] [place] [id number] [place] [address] LAB [facility] SARS-CoV-2, Flu A/B and RSVo n 03-19-2021 SARS-CoV-2 (COVID-19) RNA SHIRLEY+probe Ql (Unsp spec) SARS-CoV-2 --> Status: F Not Detected. Flu A PCR --> Status: F Not Detected. Flu B PCR --> Status: F Not Detected. RSV PCR --> Status: F DETECTED Expected Result: Not Detected _ Method: Real-time, RT-PCR This assay was developed by [employer] and distributed under an Emergency Use Authorization (EUA) granted by the FDA for the qualitative detection of nucleic acids from SARS-CoV-2, Influenza A, Influenza B, and Respiratory Syncytial Virus. Provider and patient fact sheets can be found at https://www.[facility]/ edia/243269/download and https://www.[facility].gov/ edia/069636/download. Expected Result: Not Detected _ Method: Real-time, RT-PCR This assay was developed by [employer] and distributed under an Emergency Use Authorization (EUA) granted by the [facility] for the qualitative detection of nucleic acids from SARS-CoV-2, Influenza A, Influenza B, and Respiratory Syncytial Virus. Provider and patient fact sheets can be found at https://www.[facility]/ edia/245513/download and https://www.[facility].gov/ edia/170042/download. Abnormal [facility] Comment on above: Performed By: #### C VFLR #### [facility] [address] [place] [address] , [address] Troponinon 03-19-2021 Troponin I.cardiac [Mass/Vol] 0.017 ng/mL 0.000 - 0.034 ng/mL [facility] Comment on above: . Test Performed by [facility], [address] [place] [address] Str. [place], [place] [address] [facility] Troponin Ion 03-19-2021 Troponin I.cardiac [Mass/Vol] 0.017 ng/mL Normal 0.000-0.034 [facility] Comment on above: Result Comment: . Performed By: #### B MP3, TROPN ####[facility] [place] [address] XR CHEST PORTABLEon 03-19-20 21 Patient Name: KATHYA HOOPER Diagnostic Radiology ACCESSION EXAM DATE/TIME PROCEDURE ORDERING PROVIDER [id number] 03/19/2021 17:10 EST CR Chest Portable [id number] BRADY WILKINS CPT code 17298 Reason For Exam (CR Chest Portable) hypoxia [...] Transcribed Date and Time: 03/19/2021 5:22 [facility] Keshawn Simpson MD - 03/19/2021 Patient Name: KATHYA HOOPER Diagnostic Radiology ACCESSION EXAM DATE/TIME PROCEDURE ORDERING PROVIDER [id number] 03/19/2021 17:10 EST CR Chest Portable [id number] -BRADY DESAI CPT code 45047 Reason For Exam (CR Chest Portable) hypoxia [...] J Transcribed Date and Time: 03/19/2021 5:22 [facility] Work Phone: Radiology Study observation (narrative) [facility] Work Phone: XR CHEST PORTABLEOrdered By: Keshawn Simpson on 03-19-2021 [facility] Work Phone: Basic Metabolic Panelon 03-01 Calcium [Mass/Vol] 8.4 mg/dL Normal 8.4-10.4 [facility] Comment on above: Performed By: #### H EMDMaurice, BMP3 #### [facility] [employer] [facility] [address] [place] [address] Glucose [Mass/Vol] 110 mg/dL High 70-100 [facility] Comment on above: Performed By: #### H MAYKEL BMP3 #### [facility] [address] [place] [address] Anion gap [Moles/Vol] 7 mmol/L Normal 3-13 [facility] Comment on above: Performed By: #### H ALCIRAF, BMP3 #### [facility] [address] [place] [address] CO2 [Moles/Vol] 26 mmol/L Normal 22-30 [facility] Comment on above: Performed By: #### H ALCIRAF, BMP3 #### [facility] [address] [place] [address] Creatinine [Mass/Vol] 0.54 mg/dL Normal 0.52-1.25 [facility] Comment on above: Performed By: #### H ALCIRAF, BMP3 #### [facility] [address] [place] [address] eGFR OTHER > 90.0 Normal >60 [facility] Comment on above: Result Comment: KDIG O [...] Performed By: #### H MAYKEL BMP3 #### [facility] [address] [place] [address] GFR/1.73 sq M.predicted among blacks MDRD (S/P/Bld) [Vol rate/Area] mL/min/{1.73_m2} Normal >60 [facility] Comment on above: Performed By: #### H MAYKEL BMP3 #### [facility] [address] [place] [address] Urea nitrogen [Mass/Vol] 18 mg/dL High 7-17 [facility] Comment on above: Performed By: #### H ALCIRAF, BMP3 #### [facility] [address] [place] [address] Potassium [Moles/Vol] 3.9 mmol/L Normal 3.5-5.1 [facility] Comment on above: Performed By: #### H MAYKEL, BMP3 #### [facility] [address] [place] [address] Chloride [Moles/Vol] 104 mmol/L Normal 98-107 [facility] Comment on above: Performed By: #### H MAYKEL, BMP3 #### [facility] [address] [place] [address] Sodium [Moles/Vol] 137 mmol/L Normal 135-145 [facility] Comment on above: Performed By: #### H MAYKEL BMP3 #### [facility] [address] [place] [address] Anion gap [Moles/Vol] 7 mmol/L 3 - 13 mmol/L [facility] Calcium [Mass/Vol] 8.4 mg/dL 8.4 - 10. 4 mg/dL [facility] Chloride [Moles/Vol] 104 mmol/L 98 - 10 7 mmol/L [facility] CO2 [Moles/Vol] 26 mmol/L 22 - 30 mmol/L [facility] Creatinine [Mass/Vol] 0.54 mg/dL 0.52 - 1.25 mg/dL [facility] EGFR IF NonAfrican Cymraes >90.0 >60 mL/min [facility] Comment on above: KDIGO guidelines pro [...] pg/mL High 0 - 125 pg/mL [facility] Test Performed by [facility], [address] [place] [id number] [place] [address] LAB [facility] CBC Auto Differentialon 03-01 Absolute Baso [...] (Stl) 13.6 g/dL 13.0 - 18.0 g/dL [facility] Interpretation and [...] - 10.7 10*3/uL [facility] Test Performed by [facility], [address] [place] [id number] [place] [address] LAB [facility] COVID-19, Flu A/B, and RSV C [facility] 03-18-2021 Influenza A by PCR Not detected [facility] Influenza B by PCR Not detected [facility] Interpretation and review of laboratory results Abnormal [facility] RSV PCR DETECTED Expected Result: Not Detected _ Method: Real-time, RT-PCR This assay was developed by [employer] and distributed under an Emergency Use Authorization (EUA) granted by the FDA for the qualitative detection of nucleic acids from SARS-CoV-2, Influenza A, Influenza B, and Respiratory Syncytial Virus. Provider and patient fact sheets can be found at https://www.fda.gov/m edia/467640/download and https://www.fda.gov/m edia/415405/download. Abnormal [facility] SARS-CoV-2 (COVID-19) RNA SHIRLEY+probe Ql (Unsp spec) Not detected [facility] Test Performed by [facility], [address] [place], [place], [place] [address] [facility] LAB [facility] CR Chest Portableon 03-18-20 21 CR Chest Portable Patient Name: KATHYA HOOPER Diagnostic Radiology ACCESSION EXAM DATE/TIME PROCEDURE ORDERING PROVIDER [id number] 03/18/2021 15:30 EST CR Chest Portable [id number] -BOO CASTRO CPT code 86360 Reason For Exam (CR Chest Portable) sob, [...] Transcribed Date and Time: 03/18/2021 3:35 Normal [facility] CTA Chest W WO (PE study)on 03-18-2021 Patient Name: KATHYA HOOPER Computed Tomography ACCESSION EXAM DATE/TIME PROCEDURE ORDERING PROVIDER [id number] 03/18/2021 16:27 EST CTA Chest w/ + w/o [id number] -Alyson CASTRO CPT code 51633 Q9967 Reason For Exam (CTA Chest w/ [...] MALAY Transcribed Date and Time: 03/18/2021 4:36 [facility] MD - 03/18/2021 Patient Name: KATHYA HOOPER Computed Tomography ACCESSION EXAM DATE/TIME PROCEDURE ORDERING PROVIDER [id number] 03/18/2021 16:27 EST CTA Chest w/ + w/o [id number] -CASTRO, Contrast BOO CPT code 06477 Q9967 Reason For Exam (CTA Chest w/ + w/o Contrast) pulmonary embolus Report CTA chest with and without contrast History: chest pain Protocol: 1 mm images after IV contrast, 3D rendering performed by az on a separate workstation No evidence of aortic dissection or pulmonary embolism. Patchy scattered bilateral lung infiltrates. Minimal left pleural effusion. No lymphadenopathy. IMPRESSION: Patchy scattered bilateral lung infiltrates. Minimal left pleural effusion. Report Dictated on --- Final --- Dictating Physician: MD MICHAELS MALAY Signed Date and Time: 03/18/2021 4:35 pm Signed by: MD MICHAELS MALAY Transcribed Date and Time: 03/18/2021 4:36 [facility] Work Phone: Radiology Study observation (narrative) [facility] Work Phone: CTA Chest W WO (PE study)Ord ered By: Malcolm Michaels on 03-18-2021 [facility] Work Phone: CTA Chest w/ + w/o Contrasto n 03-18-2021 CTA Chest w/ + w/o Contrast Patient Name: KATHYA HOOPER Computed Tomography ACCESSION EXAM DATE/TIME PROCEDURE ORDERING PROVIDER [id number] 03/18/2021 16:27 EST CTA Chest w/ + w/o [id number] -CASTRO, Contrast BOO CPT code 08282 Q9967 Reason For Exam (CTA Chest w/ [...] Transcribed Date and Time: 03/18/2021 4:36 Normal [facility] CTA HEAD NECK W WO CONTRASTo n 03-18-2021 Patient Name: KATHYA HOOPER Computed Tomography ACCESSION EXAM DATE/TIME PROCEDURE ORDERING PROVIDER [id number] 03/18/2021 16:26 EST CTA Head/Neck w/ + w/o 825129 -CASTROalyson TIM BOO CPT code 95354 05233 Q9967 Reason For Exam (CTA Head/Neck w/ + w/o contrast) AMS, dysphasia and ?aphasia possibly since yesterday- very poor historian from [facility] w/ unclear prior deficits - here w/ [...] HICKEY Transcribed Date and Time: 03/18/2021 4:52 [facility] Greyson Rai MD - 03/18/2021 Patient Name: KATHYA HOOPER Computed Tomography ACCESSION EXAM DATE/TIME PROCEDURE ORDERING PROVIDER [id number] 03/18/2021 16:26 EST CTA Head/Neck w/ + w/o [id number] -alyson CASTRO CPT code 09749 82364 Q9967 Reason For Exam (CTA Head/Neck w/ + w/o contrast) AMS, dysphasia and ?aphasia possibly since yesterday- very poor historian from [facility] w/ unclear prior deficits - here w/ [...] OSAMA Transcribed Date and Time: 03/18/2021 4:52 [facility] Work Phone: Radiology Study observation (narrative) [facility] Work Phone: CTA HEAD NECK W WO CONTRASTO rdered By: Greyson Rai on 03-18-2021 [facility] Work Phone: CTA Head/Neck w/ + w/o contr birgit 03-18-2021 CTA Head/Neck w/ + w/o contrast [facility]: [id number] Tomography ACCESSION EXAM DATE/TIME PROCEDURE ORDERING PROVIDER [id number] 03/18/2021 16:26 EST CTA Head/Neck w/ + w/o [id number] -alyson CASTRO CPT code 76573 95612 Q9967 Reason For Exam (CTA Head/Neck w/ + w/o contrast) AMS, dysphasia and ?aphasia possibly since yesterday- very poor historian from [facility] w/ unclear prior deficits - here w/ [...] Transcribed Date and Time: 03/18/2021 4:52 Normal [facility] ED Provider Noteon ED [facility] ENCOUN[facility] Pt Name: Kathya [...] patient come from an ECF, SNF, Rehab, Longterm or other Congregate setting: no (If yes to above patient needs a Covid-19 test) HPI Kathya Hooper is a 66 y.o. 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 Normal [facility] Hemogram w/ Autodiffon 03-18 Abs Baso Cnt 0.0 10*3/uL Normal 0.0-0.2 [facility] Comment on above: Performed By: #### H EMDF, BMP3 #### [facility] [address] [place] [address] Abs Neutrophile Cnt 7.3 10*3/uL High 1.8-7.0 [facility] Comment on above: Performed By: #### H EMDF, BMP3 #### [facility] [address] [place] [address] Basophils/100 WBC (Bld) 0.5 % Normal 0.0-2.0 [facility] Comment on above: Performed By: #### H EMDF, BMP3 #### [facility] [address] [place] [address] Eosinophils (Bld) [#/Vol] 0.0 10*3/uL Normal 0.0-0.5 [facility] Comment on above: Performed By: #### H EMDF, BMP3 #### [facility] [address] [place] [address] Eosinophils/100 WBC (Bld) 0.1 % Low 1.0-6.0 [facility] Comment on above: Performed By: #### H EMDF, BMP3 #### [facility] [address] [place] [address] Erythrocyte distribution width (RBC) [Ratio] 12.9 % Normal 11.5-14.5 [facility] Comment on above: Performed By: #### H EMDF, BMP3 #### [facility] [address] [place] [address] Granulocytes/100 WBC (Bld) 82.8 % High 40.0-80.0 [facility] Comment on above: Performed By: #### H EMDF, BMP3 #### [facility] [address] [place] [address] Hematocrit (Bld) [Volume fraction] 38.3 % Low 40.0-52.0 [facility] Comment on above: Performed By: #### H EMDF, BMP3 #### [facility] [address] [place] [address] Hemoglobin (Bld) [Mass/Vol] 13.6 g/dL Normal 13.0-18.0 [facility] Comment on above: Performed By: #### H EMDF, BMP3 #### [facility] [address] [place] [address] Lymphocytes (Bld) [#/Vol] 0.7 10*3/uL Low 1.0-4.3 [facility] Comment on above: Performed By: #### H EMDF, BMP3 #### [facility] [address] [place] [address] Lymphocytes/100 WBC (Bld) 7.6 % Low 20.0-40.0 [facility] Comment on above: Performed By: #### H EMDF, BMP3 #### [facility] [address] [place] [address] MCH (RBC) [Entitic mass] 32.0 pg Normal 26.0-34.0 [facility] Comment on above: Performed By: #### H EMDF, BMP3 #### [facility] [address] [place] [address] MCHC 35.4 % Normal 32.0-36.0 [facility] Comment on above: Performed By: #### H EMDF, BMP3 #### [facility] [address] [place] [address] MCV (RBC) [Entitic vol] 90.2 fL Normal 80.0-98.0 [facility] Comment on above: Performed By: #### H EMDF, BMP3 #### [facility] [address] [place] [address] Monocytes (Bld) [#/Vol] 0.8 10*3/uL Normal 0.0-0.8 [facility] Comment on above: Performed By: #### H EMDF, BMP3 #### [facility] [address] [place] [address] Monocytes/100 WBC (Bld) 9.0 % Normal 2.0-10.0 [facility] Comment on above: Performed By: #### H EMDF, BMP3 #### [facility] [address] [place] [address] Platelet mean volume (Bld) [Entitic vol] 9.8 fL Normal 7.4-10.4 [facility] Comment on above: Performed By: #### H EMDF, BMP3 #### [facility] [address] [place] [address] Platelets (Bld) [#/Vol] 129 10*3/uL Low 140-440 [facility] Comment on above: Performed By: #### H EMDF, BMP3 #### [facility] [address] [place] [address] RBC (Bld) [#/Vol] 4.24 10*6/uL Low 4.40-5.90 [facility] Comment on above: Performed By: #### H EMDF, BMP3 #### [facility] [address] [place] [address] WBC (Bld) [#/Vol] 8.8 10*3/uL Normal 3.6-10.7 [facility] Comment on above: Performed By: #### H EMDF, BMP3 #### [facility] [address] [place] [address] MAGNESIUMon 03-18-2021 Magnesium [Mass/Vol] 2.0 mg/dL 1.6 - 2 .3 mg/dL [facility] Magnesiumon 03-18-2021 Magnesium [Mass/Vol] 2.0 mg/dL Normal 1.6-2.3 [facility] Comment on above: Performed By: #### H EMDF, BMP3 #### [facility] [address] [place] [address] NT pro BNPon 03-18-2021 Natriuretic peptide B (Bld) [Mass/Vol] 710 pg/mL High 0-125 [facility] Comment on above: Performed By: #### H MITALI BRAR #### [facility] [address] [place] [address] No Panel Informationon 03-18 Test Performed by [facility], [facility] [address] LAB [facility] PROTIME/INR & PTTon 03-18-20 21 aPTT Coag (Bld) [Time] 30.7 s High 20.0 - 30.5 s [facility] Comment on above: NOTE: The therapeuti c time for Heparin anticoagulation, based on Xa activity inhibition, is an APTT of 46-80 seconds. INR Coag (Bld) [Relative time] 1.1 {INR} [facility] Comment on above: Recommended Anticoag ulant [...] Interpretation and review of laboratory results Abnormal [facility] PT Coag (PPP) [Time] 11.4 s 9.0 - 12.0 s [facility] Comment on above: . Test Performed by [facility], [facility] [address] LAB [facility] Protime AND APTTon aPTT Coag (Bld) [Time] 30.7 s High 20.0-30.5 [facility] Comment on above: Result Comment: NOTE : The therapeutic time for Heparin anticoagulation, based on Xa activity inhibition, is an APTT of 46-80 seconds. Performed By: #### H MITALI BRAR #### [facility] [address] [place] [address] INR 1.1 Normal 0.9-1.1 [facility] Comment on above: Result Comment: Yefri mmended [...] Performed By: #### H MAYKEL, BMP3 #### [facility] [address] [place] [address] PT Coag (PPP) [Time] 11.4 s Normal 9.0-12.0 [facility] Comment on above: Result Comment: . Performed By: #### H MAYKEL, KORIN3 #### [facility] [address] [place] [address] SARS-CoV-2, Flu A/B and RSVo n 03-18-2021 SARS-CoV-2 (COVID-19) RNA SHIRLEY+probe Ql (Unsp spec) SARS-CoV-2 --> Status: F Not Detected. Flu A PCR --> Status: F Not Detected. Flu B PCR --> Status: F Not Detected. RSV PCR --> Status: F DETECTED Expected Result: Not Detected _ Method: Real-time, RT-PCR This assay was developed by [employer] and distributed under an Emergency Use Authorization (EUA) granted by the FDA for the qualitative detection of nucleic acids from SARS-CoV-2, Influenza A, Influenza B, and Respiratory Syncytial Virus. Provider and patient fact sheets can be found at https://www.fda.gov/m edia/494020/download and https://www.fda.gov/m edia/040875/download. Expected Result: Not Detected _ Method: Real-time, RT-PCR This assay was developed by [employer] and distributed under an Emergency Use Authorization (EUA) granted by the FDA for the qualitative detection of nucleic acids from SARS-CoV-2, Influenza A, Influenza B, and Respiratory Syncytial Virus. Provider and patient fact sheets can be found at https://www.fda.gov/m edia/513487/download and https://www.fda.gov/m edia/702919/download. Abnormal [facility] Comment on above: Performed By: #### C VFLR #### [facility] [address] [place] [address] , [address] TS GELon 03-18-2021 TS GEL ABO Group: O Rh, Gel: POS Antibody Screen Gel: NEG Normal [facility] Comment on above: Performed By: #### T SGL #### [facility] TYPE AND SCREENon 03-18-2021 ABO Grouping O [facility] Rh Type Positive [facility] Test Performed by [facility], [address], [place], [place] [address] [facility] LAB [facility] XR CHEST PORTABLEon 03-18-20 Patient Name: KATHYA HOOPER Diagnostic Radiology ACCESSION EXAM DATE/TIME PROCEDURE ORDERING PROVIDER [id number] 03/18/2021 15:30 EST CR Chest Portable [id number] -BOO CASTRO CPT code 54336 Reason For Exam (CR Chest Portable) sob, [...] KRIKOR Transcribed Date and Time: 03/18/2021 3:35 [facility] Alejandra Turner MD - 03/18/2021 Patient Name: KATHYA HOOPER Diagnostic Radiology ACCESSION EXAM DATE/TIME PROCEDURE ORDERING PROVIDER [id number] 03/18/2021 15:30 EST CR Chest Portable [id number] -BOO CASTRO CPT code 14750 Reason For Exam (CR Chest Portable) sob, [...] CHEST PORTABLEOrdered By: Alejandra Munoz on 03-18-2021 [employer] Work Phone: ED Provider Noteon 1 ED Provider Note - Attestation signed by Edwin Montejo MD at 10/31/2020 7:09 AM Emergency Medicine Attending Note This patient was seen and treated independently by the retail parts professional. I was present and available in [...] Depression ? Fall 06/2018 ? Schizophrenia (HCC) SURGICALHISTORY Past Surgical History: Procedure Laterality Date [...] Resource Strain: ? (more content not included)... [facility] [place] GI TUBE EVALUATION W CONT RASTOrdered By: Helen Toledo on 10-30-2020 Patient Name: KATHYA HOOPER Fluoroscopy ACCESSION EXAM DATE/TIME PROCEDURE ORDERING PROVIDER [id number] 10/30/2020 15:07 EDT RF Intro Long GI Tube w/ KRISTA TOLEDO AMY L Fluoro CPT code 06431 Reason For Exam (RF Intro Long GI [...] J Transcribed Date and Time: 10/30/2020 4:06 [facility] Work Phone: [facility], [facility] Incoming Radiology Results From [facility] - 10/30/2020 4:07 PM EDT Patient Name: KATHYA HOOPER Fluoroscopy ACCESSION EXAM DATE/TIME PROCEDURE ORDERING PROVIDER [id number] 10/30/2020 15:07 EDT RF Intro Long GI Tube w/ KRISTA TOLEDO AMY L Fluoro CPT code 32427 Reason For Exam (RF Intro Long GI [...] and Time: 10/30/2020 4:06 [facility] Work Phone: [facility] Work Phone: RF Intro Long GI Tube w/ Flu oroon 10-30-2020 RF Intro Long GI Tube w/ Fluoro Patient Name: KATHYA HOOPER Fluoroscopy ACCESSION EXAM DATE/TIME PROCEDURE ORDERING PROVIDER [id number] 10/30/2020 15:07 EDT RF Intro Long GI Tube w/ KRISTA TOLEDO AMY L Fluoro CPT code 39934 Reason For Exam (RF Intro Long GI [...] J Transcribed Date and Time: 10/30/2020 4:06 [facility] ED Provider Noteon ED Provider Note [facility] ED EMERGENCY DEPARTMENT ENCOUNTER Pt [...] Gatherings with Friends and Family: ? Attends Zoroastrian Services: ? Active Member of Clubs or [...] Soft, non-distended (more content not included)... Normal [facility] GI TUBE EVALUATION W CONT RASTOrdered By: Elizabeth Moura on 09-22-2020 Patient Name: KATHYA HOOPER Fluoroscopy ACCESSION EXAM DATE/TIME PROCEDURE ORDERING PROVIDER [id number] 09/22/2020 04:09 EDT RF Intro Long GI Tube w/ 5816 -ELIZABETH MOURA CPT code 11811 Reason For Exam (RF Intro Long GI [...] and Time: 09/22/2020 5:11 [facility] Work Phone: [facility], [facility] Incoming Radiology Results From [facility] - 09/22/2020 5:11 AM EDT Patient Name: KATHYA HOOPER Fluoroscopy ACCESSION EXAM DATE/TIME PROCEDURE ORDERING PROVIDER [id number] 09/22/2020 04:09 EDT RF Intro Long GI Tube w/ 58ELIZABETH LU CPT code 35209 Reason For Exam (RF Intro Long GI [...] Fluoroscopy ACCESSION EXAM DATE/TIME PROCEDURE ORDERING PROVIDER [id number] 09/22/2020 04:09 EDT RF Intro Long GI Tube w/ 5816 -ELIZABETH MOURA CPT code 96099 Reason For Exam (RF Intro Long GI [...] Transcribed Date and Time: 09/22/2020 5:11 Normal [facility] ED Provider Noteon ED Provider Note [facility] ED EMERGENCY DEPARTMENT ENCOUNTER Pt [...] otherwise acutely negative except as in the [employer]. PAST MEDICAL HISTORY Past Medical History: Diagnosis [...] (AQUAPHOR) ointment Apply topically as needed. Balsam Froilan-Woosung Oil (VENELEX) OINT ointment Apply topically every [...] file Gets together: Not on file Attends confucianism service: Not on file Active member of [...] for level (more content not included)... Normal [facility] [place] GI TUBE EVALUATION W BRANDON Warner 06-26-2020 Patient Name: KATHYA HOOPER Fluoroscopy ACCESSION EXAM DATE/TIME PROCEDURE ORDERING PROVIDER [id number] 06/26/2020 20:20 EST RF Intro Long GI Tube w/ 870525 -ABELARDO RIOS Fluoro CPT code 62627 Reason For Exam (RF Intro Long GI [...] B Transcribed Date and Time: 06/26/2020 9:16 [employer] Work Phone: [facility], [facility] Incoming Radiology Results From [facility] - 06/26/2020 9:16 PM EST [facility]: [id number] Fluoroscopy ACCESSION EXAM DATE/TIME PROCEDURE ORDERING PROVIDER [id number] 06/26/2020 20:20 EST RF Intro Long GI Tube w/ [id number] -ABELARDO RIOS CPT code 62851 Reason For Exam (RF Intro Long GI [...] B Transcribed Date and Time: 06/26/2020 9:16 [facility] Work Phone: Feeding Tubeon 06-26-2020 Abelardo [...] procedure: Tolerated well, no immediate complications [facility] Work Phone: RF Intro Long GI Tube w/ Flu oroon 06-26-2020 RF Intro Long GI Tube w/ Fluoro Patient Name: KATHYA HOOPER Fluoroscopy ACCESSION EXAM DATE/TIME PROCEDURE ORDERING PROVIDER [id number] 06/26/2020 20:20 EST RF Intro Long GI Tube w/ [id number] -ABELARDO RIOS CPT code 78021 Reason For Exam (RF Intro Long GI [...] Transcribed Date and Time: 06/26/2020 9:16 Normal [facility] Clinical Summary: HMSPatient IDon 05-22-[address] [facility] Work Phone: Office Visit: New - 1st visi t with practice, Rm: 2on 05-22-2019 NEGATED: Highlighted rowCT scan history of the right lower extremity on 05/16/2019 at [facility] Work Phone: NEGATED: Highlighted rowTobacco smoking status NHIS current someday smoker [facility] Work Phone: NEGATED: Highlighted rowxray history of the pelvis with hip on 05/11/2019 at [facility] , of the pelvis on 05/13/2019 [address] [facility] Work Phone: CT LOWER EXTREMITY RIGHT WO CONTRASTOrdered By: Elizabeth Moura on 05-16-2019 Patient Name: KATHYA HOOPER ---CT--- Exam Date/Time 05/16/2019 21:10:[address] Low Ext w/o Contrast Right Ordering Physician 5816 ELIZABETH BARBER Accession Number [id number] CPT4 Codes 33452 () Reason For Exam right hip pain, [...] RISA Transcribed Date and Time: 05/16/2019 9:24 [facility] Work Phone: [facility] Results From [facility] - 05/16/2019 9:24 PM EST Patient Name: KATHYA HOOPER ---CT--- Exam Date/Time 05/16/2019 21:10:[address] Low Ext w/o Contrast Right Ordering Physician ELIZABETH BARKER Accession Number [id number] CPT4 Codes 28864 () Reason For Exam right hip pain, [...] RISA Transcribed Date and Time: 05/16/2019 9:24 [facility] Work Phone: Differential,Body Fluidson 0 09-27-2018 Other Cells 46 % Normal [facility] Comment on above: Result Comment: Bloo dy specimen with reactive mesothelial cells and chronic inflammation with occasional hemophagocytosis. mold maker plastic molds Performed By: #### H EMDF, PT, BMP3M, PHOS3, MG3, CK3 #### [facility] [employer] [address] [place] [address] #### [id number] #### [facility] [address] [place] [address] CULTURE AND STAIN - FLUIDon 09-25-2018 CULTURE AND STAIN - FLUID CULTURE & STAIN - FLUID --> Status: F No growth at 5 days. STAIN GRAM --> Status: F Moderate polymorphonuclear cells/lpf. Moderate mononuclear cells/lpf No organisms seen. Cytocentrifugation performed. Moderate mononuclear cells/lpf No organisms seen. Cytocentrifugation performed. Normal [facility] Comment on above: Performed By: #### H EMDF, PT, BMP3M, PHOS3, MG3, CK3 #### [facility] [address] [place], [place] #### VD25H #### [facility] [address] [place] [address] Cell Count,Body Fluidon 05-2 Nucleated Cells 2391 {cells}/uL Normal [facility] Comment on above: Performed By: #### H EMDF, PT, BMP3M, PHOS3, MG3, CK3 #### [place] [address] [address] [place], [place] #### VD25H #### [facility] [address] [place] [address] [place] [address] {RBC}/uL Normal [facility] Comment on above: Performed By: #### H EMDF, PT, BMP3M, PHOS3, MG3, CK3 #### [place] [address] [place], [place] #### VD25H #### [facility] [address] [place] [address] Fluid Type Thoracentesis Normal [facility] Comment on above: Performed By: #### H EMDF, PT, BMP3M, PHOS3, MG3, CK3 #### [place] [address] [place], [place] #### VD25H #### [facility] [address] [place] [address] Differential,Body Fluidson 0 09-25-2018 Lymphocytes/100 WBC (Bld) 28 % Normal [facility] Comment on above: Performed By: #### H EMDF, PT, BMP3M, PHOS3, MG3, CK3 #### [place] [address] [place], [place] #### VD25H #### [facility] [address] [place] [address] Monocytes/100 WBC (Bld) 1 % Normal [facility] Comment on above: Performed By: #### H EMDF, PT, BMP3M, PHOS3, MG3, CK3 #### [facility] [address] [place], [place] #### VD25H #### [facility] [address] [place] [address] Neutrophils/100 WBC (Bld) 25 % Normal [facility] Comment on above: Performed By: #### H EMDF, PT, BMP3M, PHOS3, MG3, CK3 #### [place] [address] [place], [place] #### VD25H #### [facility] [address] [place] [address] Cells Counted for Diff 100 Normal [facility] Comment on above: Performed By: #### H EMDF, PT, BMP3M, PHOS3, MG3, CK3 #### [place] [address] [place], [place] #### VD25H #### [facility] [address] [place] [address] LDH, Body Fluidon 09-25-2018 LDH, Body Fluid 174 U/L Normal No Range [facility] Comment on above: Performed By: #### H EMDF, PT, BMP3M, PHOS3, MG3, CK3 #### [place] [place], [place] #### VD25H #### [facility] [address] [place] [address] Protein, Total Body Fluidon 09-25-2018 Protein,Total-Body Fld 3.4 g/dL Normal No Range [facility] Comment on above: Performed By: #### H EMDF, PT, BMP3M, PHOS3, MG3, CK3 #### [place] [address] [place] #### VD25H #### [facility] [address] [place] [address] US Thora-Aspir Pleura w/ Evelin geon 09-25-2018 US Thora-Aspir Pleura w/ Image Patient Name: KATHYA HOOPER Ultrasound Exam Date/Time 09/25/2018 13:23:41 EDT Exam US Thora-Aspir Pleura w/ Image Ordering Physician SALO DAVIS Accession Number [id number] CPT4 Codes 51500 () Reason For Exam pleural effusion Report [...] Transcribed Date and Time: 09/25/2018 3:07 Normal [facility] CULTURE MYCOBACTERIAon 09-03 CULTURE MYCOBACTERIA CULTURE MYCOBACTERI A --> Status: F No acid-fast bacilli isolated after 6 weeks incubation. Normal [facility] Comment on above: Performed By: #### H EMDF, PT, BMP3M, PHOS3, MG3, CK3 #### [address] [address] #### VD25H #### [address] [place] [address] CULTURE URINEon 08-23-2018 CULTURE URINE CULTURE URINE --> Status: F No growth (<1,000 CFU/ml). Normal [facility] Comment on above: Order Comment: Speci men Source Comment:Urine, clean catch Performed By: #### H EMDF, PT, BMP3M, PHOS3, MG3, CK3 #### [facility] [employer] [facility] [address] [address] #### VD25H #### [facility] [employer] [facility] [address] [place] [address] CR Chest Portableon 08-23-19 19 CR Chest Portable Patient Name: KATHYA HOOPER Diagnostic Radiology Exam Date/Time 08/22/2018 07:07:07 EDT Exam CR Chest Portable Ordering Physician HIRAM ONEIL Accession Number [id number] CPT4 Codes 20007 () Reason For Exam dyspnea Report Portable [...] Transcribed Date and Time: 08/22/2018 7:31 Normal [facility] Glucose,Bedsideon 08-22-2018 Glucose mass conc 127 mg/dL High 70-100 [facility] Comment on above: Result Comment: Test performed by glucose meter. Results may be 10%-15% lower than serum/plasma values. (CLIA ID [id number]) Performed By: #### H EMDF, PT, BMP3M, PHOS3, MG3, CK3 #### [facility] [address] [place], [place] #### VD25H #### [facility] [address] [place] [address] Urinalysis,Macroon 9 Appearance Nom (U) clear Normal Clear [facility] Comment on above: Performed By: #### H EMDF, PT, BMP3M, PHOS3, MG3, CK3 #### [address] #### VD25H #### [facility] [address] [place] [address] Bilirubin,Ur Negative Normal Negative [facility] Comment on above: Performed By: #### H EMDF, PT, BMP3M, PHOS3, MG3, CK3 #### [address] #### VD25H #### [facility] [address] [place] [address] Color Nom (U) dk.yel Normal Lt. Yellow [facility] Comment on above: Performed By: #### H EMDF, PT, BMP3M, PHOS3, MG3, CK3 #### [address] #### VD25H #### [facility] [address] [place] [address] Glucose Ql (U) NORM Normal Negative [facility] Comment on above: Performed By: #### H EMDF, PT, BMP3M, PHOS3, MG3, CK3 #### [address] #### VD25H #### [facility] [address] [place] [address] Ketone,Urine Negative Normal Negative [facility] Comment on above: Performed By: #### H EMDF, PT, BMP3M, PHOS3, MG3, CK3 #### [facility] [address] [facility] #### VD25H #### [facility] [address] [place] [address] Nitrite Ql (U) Negative Normal Negative [facility] Comment on above: Performed By: #### H EMDF, PT, BMP3M, PHOS3, MG3, CK3 #### [place] [address] [address] [facility] #### VD25H #### [facility] [address] [place] [address] Occult Blood,Ur Negative Normal Negative [facility] Comment on above: Performed By: #### H EMDF, PT, BMP3M, PHOS3, MG3, CK3 #### [address] [facility] #### VD25H #### [facility] [address] [place] [address] pH (U) 8.0 Normal 5.0-8.0 [facility] Comment on above: Performed By: #### H EMDF, PT, BMP3M, PHOS3, MG3, CK3 #### [address] [facility] #### VD25H #### [facility] [address] [place] [address] Protein mass conc (U) Negative Normal Negative [facility] Comment on above: Performed By: #### H EMDF, PT, BMP3M, PHOS3, MG3, CK3 #### [address] [facility] #### VD25H #### [facility] [address] [place] [address] Specific [place],Urine 1.015 Normal 1.005-1.030 [facility] Comment on above: Performed By: #### H EMDF, PT, BMP3M, PHOS3, MG3, CK3 #### [place] [address] [address] [facility] #### VD25H #### [facility] [address] [place] [address] Urobilinogen Qn (U) 1 mg/dL Normal 0-1 [facility] Comment on above: Performed By: #### H EMDF, PT, BMP3M, PHOS3, MG3, CK3 #### [place] [address] [place] #### VD25H #### [facility] [address] [place] [address] WBC #/vol (Bld) Negative Normal Negative [facility] Comment on above: Performed By: #### H EMDF, PT, BMP3M, PHOS3, MG3, CK3 #### [place] [address] [place] #### VD25H #### [facility] [address] [place] [address] Basic Metabolic Panelon 04-2 Calcium mass conc 7.8 mg/dL Low 8.4-10.4 [facility] Comment on above: Performed By: #### H EMDF, PT, BMP3M, PHOS3, MG3, CK3 #### [place] [address] [place] #### VD25H #### [facility] [address] [place] [address] Glucose mass conc 102 mg/dL High 70-[address] [facility] Comment on above: Performed By: #### H EMDF, PT, BMP3M, PHOS3, MG3, CK3 #### [place] [address] [place] #### VD25H #### [facility] [address] [place] [address] Anion gap molar conc 0 Normal [facility] Comment on above: Performed By: #### H EMDF, PT, BMP3M, PHOS3, MG3, CK3 #### [address] #### VD25H #### [place] [address] [place] [address] CO2 molar conc 37 mmol/L High 22-30 [facility] Comment on above: Performed By: #### H EMDF, PT, BMP3M, PHOS3, MG3, CK3 #### [address] [address] #### VD25H #### [facility] [address] [place] [address] Creatinine mass conc 0.46 mg/dL Low 0.52-1.25 [facility] Comment on above: Performed By: #### H EMDF, PT, BMP3M, PHOS3, MG3, CK3 #### [address] #### VD25H #### [place] [address] [place] [address] GFR/1.73 sq M predicted among blacks MDRD vol rate/area (S/P/Bld) mL/min/{1.73_m2} Normal >60 [facility] Comment on above: Performed By: #### H EMDF, PT, BMP3M, PHOS3, MG3, CK3 #### [address] #### VD25H #### [address] [place] [address] GFR/1.73 sq M predicted among non-blacks MDRD vol rate/area (S/P/Bld) mL/min/{1.73_m2} Normal >[address] [facility] Comment on above: Result Comment: Sour ce- MDRD equation with creatinine calibration to IDMS(NKDEP) eGFR not recommended for drug dose adjustment Performed By: #### H EMDF, PT, BMP3M, PHOS3, MG3, CK3 #### [address] #### VD25H #### [place] [address] [place] [address] Urea nitrogen mass conc 7 mg/dL Normal 7-20 [facility] Comment on above: Performed By: #### H EMDF, PT, BMP3M, PHOS3, MG3, CK3 #### [facility] [address] [facility] [place] [address] #### VD25H #### [facility] [address] [place] [address] Potassium molar conc 3.7 mmol/L Normal 3.5-5.1 [facility] Comment on above: Performed By: #### H EMDF, PT, BMP3M, PHOS3, MG3, CK3 #### [facility] [address] [facility] [address] #### VD25H #### [facility] [address] [place] [address] Chloride molar conc 101 mmol/L Normal 98-107 [facility] Comment on above: Performed By: #### H EMDF, PT, BMP3M, PHOS3, MG3, CK3 #### [facility] [address] [facility] [address] #### VD25H #### [facility] [address] [place] [address] Sodium molar conc 138 mmol/L Normal 135-[address] [facility] Comment on above: Performed By: #### H EMDF, PT, BMP3M, PHOS3, MG3, CK3 #### [facility] [address] [facility] [place] [address] #### VD25H #### [facility] [address] [place] [address] CR Chest Portableon 08-22-19 19 CR Chest Portable Patient Name: KATHYA HOOPER Diagnostic Radiology Exam Date/Time 08/21/2018 09:46:47 EDT Exam CR Chest Portable Ordering Physician MALLORY STAPLES Accession Number [id number] CPT4 Codes 60917 () Reason For Exam edema Report PORTABLE [...] R Transcribed Date and Time: 08/21/2018 11:14 [facility] CULTURE ANAEROBEon 9 CULTURE ANAEROBE CULTURE ANAEROBE --> Status: F No growth of anaerobes at 5 days. Normal [facility] Comment on above: Order Comment: or co llected Performed By: #### H EMDF, PT, BMP3M, PHOS3, MG3, CK3 #### [facility] [address] [place] [address] #### VD25H #### [facility] [address] [place] [address] Glucose,Bedsideon 08-21-2018 Glucose mass conc 124 mg/dL High 70-100 [facility] [employer] [facility] Comment on above: Result Comment: Test performed by glucose meter. Results may be 10%-15% lower than serum/plasma values. (CLIA ID [id number]) Performed By: #### H EMDF, PT, BMP3M, PHOS3, MG3, CK3 #### [facility] [address] [place] [address] #### VD25H #### [facility] [address] [place] [address] Glucose mass conc 135 mg/dL High 70-100 [facility] [employer] [facility] Comment on above: Result Comment: Test performed by glucose meter. Results may be 10%-15% lower than serum/plasma values. (CLIA ID [id number]) Performed By: #### H EMDF, PT, BMP3M, PHOS3, MG3, CK3 #### [address] #### VD25H #### [facility] [address] [place] [address] Glucose mass conc 131 mg/dL High 70-100 [facility] Comment on above: Result Comment: Test performed by glucose meter. Results may be 10%-15% lower than serum/plasma values. (CLIA ID [id number]) Performed By: #### H EMDF, PT, BMP3M, PHOS3, MG3, CK3 #### [address] #### VD25H #### [facility] [address] [place] [address] Glucose mass conc 112 mg/dL High 70-[address] [facility] Comment on above: Result Comment: Test performed by glucose meter. Results may be 10%-15% lower than serum/plasma values. (CLIA ID [id number]) Performed By: #### H EMDF, PT, BMP3M, PHOS3, MG3, CK3 #### [address] #### VD25H #### [facility] [address] [place] [address] Basic Metabolic Panelon 07-31 Anion gap molar conc 4 Normal [facility] Comment on above: Performed By: #### H EMDF, PT, BMP3M, PHOS3, MG3, CK3 #### [address] #### VD25H #### [facility] [address] [place] [address] Calcium mass conc 7.6 mg/dL Low 8.4-10.4 [facility] Comment on above: Performed By: #### H EMDF, PT, BMP3M, PHOS3, MG3, CK3 #### [facility] [address] [facility] [place] [address] #### VD25H #### [facility] [address] [place] [address] CO2 molar conc 36 mmol/L High 22-30 [facility] Comment on above: Performed By: #### H EMDF, PT, BMP3M, PHOS3, MG3, CK3 #### [place] [address] [facility] #### VD25H #### [facility] [address] [place] [address] Glucose mass conc 121 mg/dL High 70-[address] [facility] Comment on above: Performed By: #### H EMDF, PT, BMP3M, PHOS3, MG3, CK3 #### [place] [address] [facility] #### VD25H #### [facility] [address] [place] [address] Urea nitrogen mass conc 9 mg/dL Normal 7-20 [facility] Comment on above: Performed By: #### H EMDF, PT, BMP3M, PHOS3, MG3, CK3 #### [place] [address] [facility] #### VD25H #### [facility] [address] [place] [address] Creatinine mass conc 0.51 mg/dL Low 0.52-1.25 [facility] Comment on above: Performed By: #### H EMDF, PT, BMP3M, PHOS3, MG3, CK3 #### [place] [address] [place] [address] #### VD25H #### [facility] [address] [place] [address] GFR/1.73 sq M predicted among blacks MDRD vol rate/area (S/P/Bld) mL/min/{1.73_m2} Normal >60 [facility] Comment on above: Performed By: #### H EMDF, PT, BMP3M, PHOS3, MG3, CK3 #### [facility] [address] [facility] #### VD25H #### [facility] [address] [place] [address] GFR/1.73 sq M predicted among non-blacks MDRD vol rate/area (S/P/Bld) mL/min/{1.73_m2} Normal >60 [facility] Comment on above: Result Comment: Sour ce- MDRD equation with creatinine calibration to IDMS(NKDEP) eGFR not recommended for drug dose adjustment Performed By: #### H EMDF, PT, BMP3M, PHOS3, MG3, CK3 #### [place] [address] [address] [facility] #### VD25H #### [facility] [address] [place] [address] Chloride molar conc 100 mmol/L Normal 98-107 [facility] Comment on above: Performed By: #### H EMDF, PT, BMP3M, PHOS3, MG3, CK3 #### [place] [address] [facility] #### VD25H #### [facility] [address] [place] [address] Potassium molar conc 3.3 mmol/L Low 3.5-5.1 [facility] Comment on above: Performed By: #### H EMDF, PT, BMP3M, PHOS3, MG3, CK3 #### [facility] [address] [facility] #### VD25H #### [facility] [address] [place] [address] Sodium molar conc 140 mmol/L Normal 135-145 [facility] Comment on above: Performed By: #### H EMDF, PT, BMP3M, PHOS3, MG3, CK3 #### [place] [address] [facility] #### VD25H #### [facility] [address] [place] [address] Glucose,Bedsideon 08-20-2018 Glucose mass conc 121 mg/dL High 70-[address] [facility] Comment on above: Result Comment: Test performed by glucose meter. Results may be 10%-15% lower than serum/plasma values. (CLIA ID [id number]) Performed By: #### H EMDF, PT, BMP3M, PHOS3, MG3, CK3 #### [facility] [address] [place], [place] #### VD25H #### [employer] [facility] [address] [place] [address] Glucose mass conc 127 mg/dL High 70-100 [facility] Comment on above: Result Comment: Test performed by glucose meter. Results may be 10%-15% lower than serum/plasma values. (CLIA ID [id number]) Performed By: #### H EMDF, PT, BMP3M, PHOS3, MG3, CK3 #### [employer] [place] [address] [place], [place] #### VD25H #### [employer] [facility] [address] [facility] [place] [address] Hep A Abs, Totalon 9 Hep A Abs, Total Negative Normal Negative [facility] Comment on above: Result Comment: Perf ormed by [employer], [address] [place] [phone] [email or web address] MD - Lab. Director Performed By: #### H EMDF, PT, BMP3M, PHOS3, MG3, CK3 #### [employer] [facility] [address] [place], [place] #### VD25H #### [facility] [address] [place] [address] Basic Metabolic Panelon 07-31 Anion gap molar conc 1 Normal [facility] Comment on above: Performed By: #### H EMDF, PT, BMP3M, PHOS3, MG3, CK3 #### [employer] #### VD25H #### [facility] [address] [place] [address] Calcium mass conc 7.6 mg/dL Low 8.4-10.4 [facility] Comment on above: Performed By: #### H EMDF, PT, BMP3M, PHOS3, MG3, CK3 #### [place] [address] [place] [address] #### VD25H #### [facility] [address] [place] [address] CO2 molar conc 33 mmol/L High 22-30 [facility] Comment on above: Performed By: #### H EMDF, PT, BMP3M, PHOS3, MG3, CK3 #### [place] [address] [address] [facility] #### VD25H #### [facility] [address] [place] [address] Glucose mass conc 139 mg/dL High 70-100 [facility] Comment on above: Performed By: #### H EMDF, PT, BMP3M, PHOS3, MG3, CK3 #### [place] [address] [facility] #### VD25H #### [facility] [address] [place] [address] Urea nitrogen mass conc 10 mg/dL Normal 7-20 [facility] Comment on above: Performed By: #### H EMDF, PT, BMP3M, PHOS3, MG3, CK3 #### [place] [address] [address] [facility] #### VD25H #### [facility] [address] [place] [address] Creatinine mass conc 0.57 mg/dL Normal 0.52-1.25 [facility] Comment on above: Performed By: #### H EMDF, PT, BMP3M, PHOS3, MG3, CK3 #### [place] [address] [address] [facility] #### VD25H #### [facility] [address] [place] [address] GFR/1.73 sq M predicted among blacks MDRD vol rate/area (S/P/Bld) mL/min/{1.73_m2} Normal >60 [facility] Comment on above: Performed By: #### H EMDF, PT, BMP3M, PHOS3, MG3, CK3 #### [address] #### VD25H #### [facility] [address] [place] [address] GFR/1.73 sq M predicted among non-blacks MDRD vol rate/area (S/P/Bld) mL/min/{1.73_m2} Normal >60 [facility] Comment on above: Result Comment: Sour ce- MDRD equation with creatinine calibration to IDMS(NKDEP) eGFR not recommended for drug dose adjustment Performed By: #### H EMDF, PT, BMP3M, PHOS3, MG3, CK3 #### [address] #### VD25H #### [facility] [address] [place] [address] Potassium molar conc 3.4 mmol/L Low 3.5-5.1 [facility] Comment on above: Performed By: #### H EMDF, PT, BMP3M, PHOS3, MG3, CK3 #### [address] #### VD25H #### [facility] [address] [place] [address] Chloride molar conc 104 mmol/L Normal 98-107 [facility] Comment on above: Performed By: #### H EMDF, PT, BMP3M, PHOS3, MG3, CK3 #### [address] #### VD25H #### [facility] [address] [place] [address] Sodium molar conc 138 mmol/L Normal 135-145 [facility] Comment on above: Performed By: #### H EMDF, PT, BMP3M, PHOS3, MG3, CK3 #### [employer] [address] [place] [address] #### VD25H #### [employer] [address] [place] [address] CULT./ST. BACTERIAon 019 CULT./ST. BACTERIA STAIN GRAM [...] 0.12 S Vancomycin(CHRISTI) = 1 S Normal [facility] Comment on above: Order Comment: or co llected Performed By: #### H EMDF, PT, BMP3M, PHOS3, MG3, CK3 #### [facility] [address] [place], [place] #### VD25H #### [facility] [address] [place] [address] Basic Metabolic Panelon -2 Calcium mass conc 7.8 mg/dL Low 8.4-10.4 [facility] Comment on above: Performed By: #### H EMDF, PT, BMP3M, PHOS3, MG3, CK3 #### [place] [address] [place], [place] #### VD25H #### [facility] [address] [place] [address] Glucose mass conc 104 mg/dL High 70-100 [facility] Comment on above: Performed By: #### H EMDF, PT, BMP3M, PHOS3, MG3, CK3 #### [address] [place] #### VD25H #### [facility] [address] [place] [address] Urea nitrogen mass conc 12 mg/dL Normal 7-20 [facility] Comment on above: Performed By: #### H EMDF, PT, BMP3M, PHOS3, MG3, CK3 #### [place] [address] [place], [place] #### VD25H #### [facility] [address] [place] [address] Anion gap molar conc 5 Normal [facility] Comment on above: Performed By: #### H EMDF, PT, BMP3M, PHOS3, MG3, CK3 #### [place] [address] [place] #### VD25H #### [facility] [address] [place] [address] CO2 molar conc 26 mmol/L Normal 22-30 [facility] Comment on above: Performed By: #### H EMDF, PT, BMP3M, PHOS3, MG3, CK3 #### [address] #### VD25H #### [facility] [address] [place] [address] Creatinine mass conc 0.61 mg/dL Normal 0.52-1.25 [facility] Comment on above: Performed By: #### H EMDF, PT, BMP3M, PHOS3, MG3, CK3 #### [address] #### VD25H #### [facility] [address] [place] [address] GFR/1.73 sq M predicted among blacks MDRD vol rate/area (S/P/Bld) mL/min/{1.73_m2} Normal >60 [facility] Comment on above: Performed By: #### H EMDF, PT, BMP3M, PHOS3, MG3, CK3 #### [address] #### VD25H #### [facility] [address] [place] [address] GFR/1.73 sq M predicted among non-blacks MDRD vol rate/area (S/P/Bld) mL/min/{1.73_m2} Normal >[address] [facility] Comment on above: Result Comment: Sour ce- MDRD equation with creatinine calibration to IDMS(NKDEP) eGFR not recommended for drug dose adjustment Performed By: #### H EMDF, PT, BMP3M, PHOS3, MG3, CK3 #### [address] #### VD25H #### [facility] [address] [place] [address] Chloride molar conc 107 mmol/L Normal 98-107 [facility] Comment on above: Performed By: #### H EMDF, PT, BMP3M, PHOS3, MG3, CK3 #### [facility] [address] [place], [place] #### VD25H #### [facility] [address] [place] [address] Potassium molar conc 3.4 mmol/L Low 3.5-5.1 [facility] Comment on above: Performed By: #### H EMDF, PT, BMP3M, PHOS3, MG3, CK3 #### [address] #### VD25H #### [facility] [address] [place] [address] Sodium molar conc 138 mmol/L Normal 135-145 [facility] Comment on above: Performed By: #### H EMDF, PT, BMP3M, PHOS3, MG3, CK3 #### [place] [address] [facility] [place] #### VD25H #### [facility] [address] [place] [address] Glucose,Bedsideon 08-18-2018 Glucose mass conc 113 mg/dL High 70-100 [facility] Comment on above: Result Comment: Test performed by glucose meter. Results may be 10%-15% lower than serum/plasma values. (CLIA ID [id number]) Performed By: #### H EMDF, PT, BMP3M, PHOS3, MG3, CK3 #### [place] [address] [place], [place] #### VD25H #### [facility] [address] [place] [address] Hemogram w/ Autodiffon 08-18 Erythrocyte distribution width Ratio (RBC) 14.4 % Normal 11.5-14.5 [facility] Comment on above: Performed By: #### H EMDF, PT, BMP3M, PHOS3, MG3, CK3 #### [place] [address] [address] [place], [place] #### VD25H #### [facility] [address] [place] [address] Hematocrit Volume Fraction (Bld) 29.3 % Low 40.0-52.0 [facility] Comment on above: Performed By: #### H EMDF, PT, BMP3M, PHOS3, MG3, CK3 #### [place] [address] [address] [place] #### VD25H #### [facility] [address] [place] [address] Hemoglobin mass conc (Bld) 9.8 g/dL Low 13.0-18.0 [facility] Comment on above: Performed By: #### H EMDF, PT, BMP3M, PHOS3, MG3, CK3 #### [address] #### VD25H #### [place] [address] [place] [address] MCH Entitic mass (RBC) 28.0 pg Normal 26.0-34.0 [facility] Comment on above: Performed By: #### H EMDF, PT, BMP3M, PHOS3, MG3, CK3 #### [address] #### VD25H #### [facility] [address] [place] [address] MCHC mass conc (RBC) 33.4 % Normal 32.0-36.0 [facility] Comment on above: Performed By: #### H EMDF, PT, BMP3M, PHOS3, MG3, CK3 #### [address] #### VD25H #### [facility] [address] [place] [address] MCV Entitic volume (RBC) 84.1 fL Normal 80.0-98.0 [facility] Comment on above: Performed By: #### H EMDF, PT, BMP3M, PHOS3, MG3, CK3 #### [address] [place], [place] #### VD25H #### [facility] [address] [place] [address] Platelet mean volume Entitic volume (Bld) 7.9 fL Normal 7.4-10.4 [facility] Comment on above: Performed By: #### H EMDF, PT, BMP3M, PHOS3, MG3, CK3 #### [place] [address] [address] [place], [place] #### VD25H #### [facility] [address] [place] [address] Platelets #/vol (Bld) 301 10*3/uL Normal 140-440 [facility] Comment on above: Performed By: #### H EMDF, PT, BMP3M, PHOS3, MG3, CK3 #### [address] #### VD25H #### [facility] [address] [place] [address] RBC #/vol (Bld) 3.49 10*6/uL Low 4.40-5.[address] [facility] Comment on above: Performed By: #### H EMDF, PT, BMP3M, PHOS3, MG3, CK3 #### [address] #### VD25H #### [facility] [address] [place] [address] WBC #/vol (Bld) 8.3 10*3/uL Normal 3.6-10.7 [facility] Comment on above: Performed By: #### H EMDF, PT, BMP3M, PHOS3, MG3, CK3 #### [address] #### VD25H #### [facility] [address] [place] [address] Magnesiumon 08-18-2018 Magnesium mass conc 2.0 mg/dL Normal 1.6-2.3 [facility] Comment on above: Performed By: #### H EMDF, PT, BMP3M, PHOS3, MG3, CK3 #### [address] [place] #### VD25H #### [facility] [address] [place] [address] Manual Diffon 08-18-2018 Abs Neutrophile Cnt 5.1 10*3/uL Normal 2.2-8.2 [facility] Comment on above: Performed By: #### H EMDF, PT, BMP3M, PHOS3, MG3, CK3 #### [address] [place] #### VD25H #### [facility] [address] [place] [address] Bands 3 % Normal 0-3 [facility] Comment on above: Performed By: #### H EMDF, PT, BMP3M, PHOS3, MG3, CK3 #### [place] [address] [place], [place] #### VD25H #### [facility] [address] [place] [address] Eosinophils #/vol (Bld) 0.2 10*3/uL Normal 0.0-0.5 [facility] Comment on above: Performed By: #### H EMDF, PT, BMP3M, PHOS3, MG3, CK3 #### [address] #### VD25H #### [facility] [address] [place] [address] Eosinophils/100 WBC (Bld) 2 % Normal 1-6 [facility] Comment on above: Performed By: #### H EMDF, PT, BMP3M, PHOS3, MG3, CK3 #### [address] #### VD25H #### [facility] [address] [place] [address] Lymphocytes #/vol (Bld) 2.1 10*3/uL Normal 1.1-4.5 [facility] Comment on above: Performed By: #### H EMDF, PT, BMP3M, PHOS3, MG3, CK3 #### [place] [address] [address] [place] #### VD25H #### [facility] [address] [place] [address] Lymphocytes/100 WBC (Bld) 25 % Normal 20-40 [facility] Comment on above: Performed By: #### H EMDF, PT, BMP3M, PHOS3, MG3, CK3 #### [place] [address] [address] [place] #### VD25H #### [facility] [address] [place] [address] Metamyelocytes 1 % Abnormal <1 [facility] Comment on above: Performed By: #### H EMDF, PT, BMP3M, PHOS3, MG3, CK3 #### [place] [address] [address] [place] #### VD25H #### [facility] [address] [place] [address] Monocytes #/vol (Bld) 0.6 10*3/uL Normal 0.2-1.1 [facility] Comment on above: Performed By: #### H EMDF, PT, BMP3M, PHOS3, MG3, CK3 #### [place] [address] [address] [place] #### VD25H #### [facility] [address] [place] [address] Monocytes/100 WBC (Bld) 7 % Normal 2-10 [facility] Comment on above: Performed By: #### H EMDF, PT, BMP3M, PHOS3, MG3, CK3 #### [place] [address] [address] [place] #### VD25H #### [facility] [address] [place] [address] Myelocytes 1 % Abnormal <1 [facility] Comment on above: Performed By: #### H EMDF, PT, BMP3M, PHOS3, MG3, CK3 #### [address] #### VD25H #### [facility] [address] [place] [address] Protein mass conc 2 % Abnormal <[address] [facility] Comment on above: Performed By: #### H EMDF, PT, BMP3M, PHOS3, MG3, CK3 #### [address] #### VD25H #### [facility] [address] [place] [address] RBC morphology finding Nom (Bld) See Prev Normal [facility] Comment on above: Performed By: #### H EMDF, PT, BMP3M, PHOS3, MG3, CK3 #### [address] #### VD25H #### [facility] [address] [place] [address] Seg Neutrophils 59 % Normal 40-80 [facility] Comment on above: Performed By: #### H EMDF, PT, BMP3M, PHOS3, MG3, CK3 #### [address] #### VD25H #### [facility] [address] [place] [address] Abs Baso Cnt 0.0 10*3/uL Normal 0.0-0.2 [facility] Comment on above: Performed By: #### H EMDF, PT, BMP3M, PHOS3, MG3, CK3 #### [address] #### VD25H #### [facility] [address] [place] [address] Basophils/100 WBC (Bld) 0 % Normal 0-2 [facility] Comment on above: Performed By: #### H EMDF, PT, BMP3M, PHOS3, MG3, CK3 #### [address] [place], [place] #### VD25H #### [facility] [address] [place] [address] Cells counted 100 Normal [facility] Comment on above: Performed By: #### H EMDF, PT, BMP3M, PHOS3, MG3, CK3 #### [place] [address] [address] [place] #### VD25H #### [facility] [address] [place] [address] Phosphoruson 08-18-2018 Phosphate mass conc 4.6 mg/dL High 2.5-4.5 [facility] Comment on above: Performed By: #### H EMDF, PT, BMP3M, PHOS3, MG3, CK3 #### [address] #### VD25H #### [facility] [address] [place] [address] Basic Metabolic Panelon 07-30 Calcium mass conc 7.7 mg/dL Low 8.4-10.[address] [facility] Comment on above: Performed By: #### H EMDF, PT, BMP3M, PHOS3, MG3, CK3 #### [address] [place], [place] #### VD25H #### [facility] [address] [place] [address] Anion gap molar conc 7 Normal [facility] Comment on above: Performed By: #### H EMDF, PT, BMP3M, PHOS3, MG3, CK3 #### [address] [place] #### VD25H #### [facility] [address] [place] [address] CO2 molar conc 25 mmol/L Normal 22-30 [facility] Comment on above: Performed By: #### H EMDF, PT, BMP3M, PHOS3, MG3, CK3 #### [place] [address] [address] [place] #### VD25H #### [facility] [address] [place] [address] Creatinine mass conc 0.59 mg/dL Normal 0.52-1.25 [facility] Comment on above: Performed By: #### H EMDF, PT, BMP3M, PHOS3, MG3, CK3 #### [address] #### VD25H #### [facility] [address] [place] [address] GFR/1.73 sq M predicted among blacks MDRD vol rate/area (S/P/Bld) mL/min/{1.73_m2} Normal >60 [facility] Comment on above: Performed By: #### H EMDF, PT, BMP3M, PHOS3, MG3, CK3 #### [address] #### VD25H #### [facility] [address] [place] [address] GFR/1.73 sq M predicted among non-blacks MDRD vol rate/area (S/P/Bld) mL/min/{1.73_m2} Normal >60 [facility] Comment on above: Result Comment: Sour ce- MDRD equation with creatinine calibration to IDMS(NKDEP) eGFR not recommended for drug dose adjustment Performed By: #### H EMDF, PT, BMP3M, PHOS3, MG3, CK3 #### [address] #### VD25H #### [facility] [address] [place] [address] Glucose mass conc 116 mg/dL High 70-[address] [facility] Comment on above: Performed By: #### H EMDF, PT, BMP3M, PHOS3, MG3, CK3 #### [address] #### VD25H #### [facility] [address] [place] [address] Urea nitrogen mass conc 12 mg/dL Normal 7-20 [facility] Comment on above: Performed By: #### H EMDF, PT, BMP3M, PHOS3, MG3, CK3 #### [facility] [address] [place] [address] #### VD25H #### [facility] [address] [place] [address] Potassium molar conc 3.2 mmol/L Low 3.5-5.1 [facility] Comment on above: Performed By: #### H EMDF, PT, BMP3M, PHOS3, MG3, CK3 #### [facility] [address] [place] #### VD25H #### [facility] [address] [place] [address] Sodium molar conc 138 mmol/L Normal 135-145 [facility] Comment on above: Performed By: #### H EMDF, PT, BMP3M, PHOS3, MG3, CK3 #### [facility] [address] [place] [address] #### VD25H #### [facility] [address] [place] [address] Chloride molar conc 106 mmol/L Normal 98-107 [facility] Comment on above: Performed By: #### H EMDF, PT, BMP3M, PHOS3, MG3, CK3 #### [facility] [address] [place] #### VD25H #### [facility] [address] [place] [address] CR Chest Portableon 08-18-19 19 CR Chest Portable Patient Name: KATHYA HOOPER Diagnostic Radiology Exam Date/Time 08/17/2018 17:54:46 EDT Exam CR Chest Portable Ordering Physician SALO DAVIS Accession Number [id number] CPT4 Codes 52096 () Reason For Exam line placement Report [...] Transcribed Date and Time: 08/17/2018 6:05 Normal [facility] CR Chest Portable Patient Name: KATHYA HOOPER Diagnostic Radiology Exam Date/Time 08/17/2018 06:11:03 EDT Exam CR Chest Portable Ordering Physician ETIENNE VELÁSQUEZ TIMOTHY P Accession Number [id number] CPT4 Codes 46179 () Reason For Exam follow left pleural [...] Transcribed Date and Time: 08/17/2018 7:16 Normal [facility] Ferritinon 08-17-2018 Ferritin mass conc 1100 ng/mL High 18-464 [facility] Comment on above: Performed By: #### H EMDF, PT, BMP3M, PHOS3, MG3, CK3 #### [facility] [address] [place], [place] #### VD25H #### [facility] [address] [place] [address] Folateon 08-17-2018 Folate 15.1 ng/mL Normal 2.8-20.0 [facility] Comment on above: Performed By: #### H EMDF, PT, BMP3M, PHOS3, MG3, CK3 #### [facility] [address] [place], [place] #### VD25H #### [facility] [address] [place] [address] Glucose,Bedsideon 08-17-2018 Glucose mass conc 133 mg/dL High 70-[address] [facility] Comment on above: Result Comment: Test performed by glucose meter. Results may be 10%-15% lower than serum/plasma values. (CLIA ID [id number]) Performed By: #### H EMDF, PT, BMP3M, PHOS3, MG3, CK3 #### [facility] [address] [place], [place] #### VD25H #### [facility] [address] [place] [address] Hemoglobin A1Con 08-17-2018 Hemoglobin A1c/Hemoglobin.total mass fraction (Bld) 117 mg/dL Normal [facility] Comment on above: Performed By: #### H EMDF, PT, BMP3M, PHOS3, MG3, CK3 #### [address] #### VD25H #### [facility] [address] [place] [address] Hemoglobin A1c/Hemoglobin.total mass fraction (Bld) 5.7 % Normal 4.0-5.7 [facility] Comment on above: Result Comment: --Hg bA1C levels may not be accurate in patients who have renal disease, received recent blood transfusions, are anemic, or who have dyshemoglobinemia. Performed By: #### H EMDF, PT, BMP3M, PHOS3, MG3, CK3 #### [address] #### VD25H #### [facility] [address] [place] [address] Hemogram w/ Autodiffon 08-17 Erythrocyte distribution width Ratio (RBC) 14.3 % Normal 11.5-14.5 [facility] Comment on above: Performed By: #### H EMDF, PT, BMP3M, PHOS3, MG3, CK3 #### [address] #### VD25H #### [facility] [address] [place] [address] Hematocrit Volume Fraction (Bld) 29.1 % Low 40.0-52.0 [facility] Comment on above: Performed By: #### H EMDF, PT, BMP3M, PHOS3, MG3, CK3 #### [address] #### VD25H #### [facility] [address] [place] [address] Hemoglobin mass conc (Bld) 9.8 g/dL Low 13.0-18.0 [facility] Comment on above: Performed By: #### H EMDF, PT, BMP3M, PHOS3, MG3, CK3 #### [address] #### VD25H #### [facility] [address] [place] [address] MCH Entitic mass (RBC) 28.4 pg Normal 26.0-34.0 [facility] Comment on above: Performed By: #### H EMDF, PT, BMP3M, PHOS3, MG3, CK3 #### [address] #### VD25H #### [facility] [address] [place] [address] MCHC mass conc (RBC) 33.5 % Normal 32.0-36.0 [facility] Comment on above: Performed By: #### H EMDF, PT, BMP3M, PHOS3, MG3, CK3 #### [facility] [address] [place] #### VD25H #### [facility] [address] [place] [address] MCV Entitic volume (RBC) 84.7 fL Normal 80.0-98.0 [facility] Comment on above: Performed By: #### H EMDF, PT, BMP3M, PHOS3, MG3, CK3 #### [address] #### VD25H #### [facility] [address] [place] [address] Platelet mean volume Entitic volume (Bld) 8.1 fL Normal 7.4-10.4 [facility] Comment on above: Performed By: #### H EMDF, PT, BMP3M, PHOS3, MG3, CK3 #### [address] #### VD25H #### [facility] [address] [place] [address] Platelets #/vol (Bld) 281 10*3/uL Normal 140-440 [facility] Comment on above: Performed By: #### H EMDF, PT, BMP3M, PHOS3, MG3, CK3 #### [address] [place], [place] #### VD25H #### [facility] [address] [place] [address] RBC #/vol (Bld) 3.44 10*6/uL Low 4.40-5.[address] [facility] Comment on above: Performed By: #### H EMDF, PT, BMP3M, PHOS3, MG3, CK3 #### [address] #### VD25H #### [facility] [address] [place] [address] WBC #/vol (Bld) 8.3 10*3/uL Normal 3.6-10.7 [facility] Comment on above: Performed By: #### H EMDF, PT, BMP3M, PHOS3, MG3, CK3 #### [facility] [address] [place], [place] #### VD25H #### [facility] [address] [place] [address] Hep B Surface Abon 9 Hep B Surface Ab < 8.0 Normal [facility] Comment on above: Result Comment: Inte rpretation: <8.0 Non-Reactive 8.0-11.9 Equivocal >= 12.0 Ab Detected Performed By: #### H EMDF, PT, BMP3M, PHOS3, MG3, CK3 #### [address] #### VD25H #### [facility] [address] [place] [address] Hep B Surface Agon 9 Hep B Surface Ag NOT DETECTED Normal Not-Detected [facility] Comment on above: Performed By: #### H EMDF, PT, BMP3M, PHOS3, MG3, CK3 #### [facility] [address] [place], [place] #### VD25H #### [facility] [address] [place] [address] Hep C Antibodyon 08-17-2018 Hep C Antibody NOT DETECTED Normal Not-Detected [facility] Comment on above: Result Comment: Bharti ents with DETECTED Hepatitis C Ab results should have a new specimen submitted for supplemental testing with a Hepatitis C Quantitative RNA assay (viral load), if clinically indicated. Performed By: #### H EMDF, PT, BMP3M, PHOS3, MG3, CK3 #### [facility] [address] [place], [place] #### VD25H #### [facility] [address] [place] [address] Hepatic Functionon 9 ALP enzyme act/vol 116 U/L Normal 38-126 [facility] Comment on above: Performed By: #### H EMDF, PT, BMP3M, PHOS3, MG3, CK3 #### [facility] [address] [place] #### VD25H #### [facility] [address] [place] [address] ALT enzyme act/vol 370 U/L High 13-69 [facility] Comment on above: Performed By: #### H EMDF, PT, BMP3M, PHOS3, MG3, CK3 #### [place] [address] [place], [place] #### VD25H #### [facility] [address] [place] [address] AST enzyme act/vol 150 U/L High 15-46 [facility] Comment on above: Performed By: #### H EMDF, PT, BMP3M, PHOS3, MG3, CK3 #### [facility] [address] [place] #### VD25H #### [facility] [address] [place] [address] Bilirubin mass conc 0.7 mg/dL Normal 0.2-1.3 [facility] Comment on above: Performed By: #### H EMDF, PT, BMP3M, PHOS3, MG3, CK3 #### [facility] [address] [place] #### VD25H #### [facility] [address] [place] [address] Bilirubin.direct mass conc 0.0 mg/dL Normal 0.0-0.3 [facility] Comment on above: Performed By: #### H EMDF, PT, BMP3M, PHOS3, MG3, CK3 #### [facility] [address] [place], [place] #### VD25H #### [facility] [address] [place] [address] Protein mass conc 5.4 g/dL Low 6.3-8.2 [facility] Comment on above: Performed By: #### H EMDF, PT, BMP3M, PHOS3, MG3, CK3 #### [facility] [address] [place] #### VD25H #### [facility] [address] [place] [address] Albumin mass conc 2.5 g/dL Low 3.5-5.0 [facility] Comment on above: Performed By: #### H EMDF, PT, BMP3M, PHOS3, MG3, CK3 #### [place] [address] [address] [place], [place] #### VD25H #### [facility] [address] [place] [address] Iron AND TIBCon 08-17-2018 Saturation 14 % Low 15-50 [facility] Comment on above: Performed By: #### H EMDF, PT, BMP3M, PHOS3, MG3, CK3 #### [facility] [address] [place] #### VD25H #### [facility] [address] [place] [address] Total Iron Binding Cap. 166 ug/dL Low 261-497 [facility] Comment on above: Performed By: #### H EMDF, PT, BMP3M, PHOS3, MG3, CK3 #### [facility] [address] [place] #### VD25H #### [facility] [address] [place] [address] Iron, Total 23 ug/dL Low 49-181 [facility] Comment on above: Performed By: #### H EMDF, PT, BMP3M, PHOS3, MG3, CK3 #### [place] [address] [address] [place], [place] #### VD25H #### [facility] [address] [place] [address] Magnesiumon 08-17-2018 Magnesium mass conc 2.0 mg/dL Normal 1.6-2.3 [facility] Comment on above: Performed By: #### H EMDF, PT, BMP3M, PHOS3, MG3, CK3 #### [address] [place], [place] #### VD25H #### [facility] [address] [place] [address] Manual Diffon 08-17-2018 Abs Baso Cnt 0.1 10*3/uL Normal 0.0-0.2 [facility] Comment on above: Performed By: #### H EMDF, PT, BMP3M, PHOS3, MG3, CK3 #### [address] #### VD25H #### [facility] [address] [place] [address] Abs Neutrophile Cnt 5.6 10*3/uL Normal 2.2-8.2 [facility] Comment on above: Performed By: #### H EMDF, PT, BMP3M, PHOS3, MG3, CK3 #### [address] #### VD25H #### [facility] [address] [place] [address] Anisocytosis Ql (Bld) Slight Normal [facility] Comment on above: Performed By: #### H EMDF, PT, BMP3M, PHOS3, MG3, CK3 #### [address] #### VD25H #### [facility] [address] [place] [address] Bands 9 % High 0-3 [facility] Comment on above: Performed By: #### H EMDF, PT, BMP3M, PHOS3, MG3, CK3 #### [address] #### VD25H #### [facility] [address] [place] [address] Basophils/100 WBC (Bld) 1 % Normal 0-2 [facility] Comment on above: Performed By: #### H EMDF, PT, BMP3M, PHOS3, MG3, CK3 #### [place] [address] [address] [place], [place] #### VD25H #### [facility] [address] [place] [address] Eosinophils #/vol (Bld) 0.2 10*3/uL Normal 0.0-0.5 [facility] Comment on above: Performed By: #### H EMDF, PT, BMP3M, PHOS3, MG3, CK3 #### [place] [address] [address] [place], [place] #### VD25H #### [facility] [address] [place] [address] Eosinophils/100 WBC (Bld) 3 % Normal 1-6 [facility] Comment on above: Performed By: #### H EMDF, PT, BMP3M, PHOS3, MG3, CK3 #### [place] [address] [address] [place], [place] #### VD25H #### [facility] [address] [place] [address] Lymphocytes #/vol (Bld) 1.5 10*3/uL Normal 1.1-4.5 [facility] Comment on above: Performed By: #### H EMDF, PT, BMP3M, PHOS3, MG3, CK3 #### [address] #### VD25H #### [facility] [address] [place] [address] Lymphocytes/100 WBC (Bld) 18 % Low 20-40 [facility] Comment on above: Performed By: #### H EMDF, PT, BMP3M, PHOS3, MG3, CK3 #### [address] [place], [place] #### VD25H #### [facility] [address] [place] [address] Monocytes #/vol (Bld) 0.4 10*3/uL Normal 0.2-1.1 [facility] Comment on above: Performed By: #### H EMDF, PT, BMP3M, PHOS3, MG3, CK3 #### [facility] [address] [place], [place] #### VD25H #### [facility] [address] [place] [address] Monocytes/100 WBC (Bld) 5 % Normal 2-10 [facility] Comment on above: Performed By: #### H EMDF, PT, BMP3M, PHOS3, MG3, CK3 #### [place] [address] [address] [facility], [place] #### VD25H #### [facility] [address] [place] [address] Myelocytes 5 % Abnormal <1 [facility] Comment on above: Performed By: #### H EMDF, PT, BMP3M, PHOS3, MG3, CK3 #### [place] [address] [address] [place], [place] #### VD25H #### [facility] [address] [place] [address] Polychromasia Slight Normal [facility] Comment on above: Performed By: #### H EMDF, PT, BMP3M, PHOS3, MG3, CK3 #### [place] [address] [address] [place] #### VD25H #### [facility] [address] [place] [address] RBC morphology finding Nom (Bld) ABNORMAL Normal [facility] Comment on above: Performed By: #### H EMDF, PT, BMP3M, PHOS3, MG3, CK3 #### [place] [address] [address] [facility] #### VD25H #### [facility] [address] [place] [address] Seg Neutrophils 59 % Normal 40-80 [facility] Comment on above: Performed By: #### H EMDF, PT, BMP3M, PHOS3, MG3, CK3 #### [place] [address] [address] [place] #### VD25H #### [facility] [address] [place] [address] Toxic Granulation Slight Normal [facility] Comment on above: Performed By: #### H EMDF, PT, BMP3M, PHOS3, MG3, CK3 #### [place] [address] [address] [facility] #### VD25H #### [facility] [address] [place] [address] Cells counted 100 Normal [facility] Comment on above: Performed By: #### H EMDF, PT, BMP3M, PHOS3, MG3, CK3 #### [place] [address] [address] [facility] #### VD25H #### [facility] [address] [place] [address] Phosphoruson 08-17-2018 Phosphate mass conc 3.9 mg/dL Normal 2.5-4.5 [facility] Comment on above: Performed By: #### H EMDF, PT, BMP3M, PHOS3, MG3, CK3 #### [place] [address] [address] [facility] #### VD25H #### [facility] [address] [place] [address] Triglycerideon 08-17-2018 Triglyceride mass conc 104 mg/dL Normal <150 [facility] Comment on above: Performed By: #### H EMDF, PT, BMP3M, PHOS3, MG3, CK3 #### [place] [address] [address] [facility] #### VD25H #### [facility] [address] [place] [address] Vitamin B12on 08-17-2018 Cobalamin (Vitamin B12) mass conc 615 pg/mL Normal 239-931 [facility] Comment on above: Performed By: #### H EMDF, PT, BMP3M, PHOS3, MG3, CK3 #### [place] [address] [address] [place] #### VD25H #### [facility] [address] [place] [address] Albumin, Serumon 08-16-2018 Albumin mass conc 2.6 g/dL Low 3.5-5.[address] [facility] Comment on above: Performed By: #### H EMDF, PT, BMP3M, PHOS3, MG3, CK3 #### [facility] [address] [facility] #### VD25H #### [facility] [address] [place] [address] CR Abdomen APon 08-16-2018 CR Abdomen AP Patient Name: KATHYA HOOPER Diagnostic Radiology Exam Date/Time 08/16/2018 10:17:24 EDT Exam CR Abdomen AP Ordering Physician [id number] ESPINOSA Accession Number [id number] CPT4 Codes 43425 () Reason For Exam dobhoff placement Report [...] Transcribed Date and Time: 08/16/2018 12:33 Normal [facility] CR Chest Portableon 08-17-19 19 CR Chest Portable Patient Name: KATHYA HOOPER Diagnostic Radiology Exam Date/Time 08/16/2018 10:17:24 EDT Exam CR Chest Portable Ordering Physician [id number] JoesphJOEY KING Accession Number [id number] CPT4 Codes 17636 () Reason For Exam dyspnea Report PORTABLE [...] Transcribed Date and Time: 08/16/2018 12:31 Normal [facility] Comp Panel with Mg Reflexon 08-16-2018 Calcium mass conc 7.8 mg/dL Low 8.4-10.[address] [facility] [employer] Comment on above: Performed By: #### H EMDF, PT, BMP3M, PHOS3, MG3, CK3 #### [facility] [employer] [facility] [address] [place] [address] #### VD25H #### [facility] [employer] [facility] [address] [place] [address] Glucose mass conc 114 mg/dL High 70-100 [facility] Comment on above: Performed By: #### H EMDF, PT, BMP3M, PHOS3, MG3, CK3 #### [facility] [employer] [facility] [address] [place] [address] #### VD25H #### [facility] [address] [place] [address] ALP enzyme act/vol 114 U/L Normal 38-126 [facility] Comment on above: Performed By: #### H EMDF, PT, BMP3M, PHOS3, MG3, CK3 #### [facility] [address] [place] #### VD25H #### [facility] [address] [place] [address] ALT enzyme act/vol 539 U/L High 13-69 [facility] Comment on above: Performed By: #### H EMDF, PT, BMP3M, PHOS3, MG3, CK3 #### [facility] [address] [place] #### VD25H #### [facility] [address] [place] [address] Anion gap molar conc 4 Normal [facility] Comment on above: Performed By: #### H EMDF, PT, BMP3M, PHOS3, MG3, CK3 #### [place] [address] [address] [place] #### VD25H #### [facility] [address] [place] [address] AST enzyme act/vol 460 U/L High 15-46 [facility] Comment on above: Performed By: #### H EMDF, PT, BMP3M, PHOS3, MG3, CK3 #### [place] [address] [address] [place] #### VD25H #### [facility] [address] [place] [address] Bilirubin mass conc 0.7 mg/dL Normal 0.2-1.3 [facility] Comment on above: Performed By: #### H EMDF, PT, BMP3M, PHOS3, MG3, CK3 #### [facility] [address] [place] #### VD25H #### [facility] [address] [place] [address] CO2 molar conc 25 mmol/L Normal 22-30 [facility] Comment on above: Performed By: #### H EMDF, PT, BMP3M, PHOS3, MG3, CK3 #### [address] #### VD25H #### [facility] [address] [place] [address] Creatinine mass conc 0.71 mg/dL Normal 0.52-1.25 [facility] Comment on above: Performed By: #### H EMDF, PT, BMP3M, PHOS3, MG3, CK3 #### [address] #### VD25H #### [facility] [address] [place] [address] GFR/1.73 sq M predicted among blacks MDRD vol rate/area (S/P/Bld) mL/min/{1.73_m2} Normal >60 [facility] Comment on above: Performed By: #### H EMDF, PT, BMP3M, PHOS3, MG3, CK3 #### [address] #### VD25H #### [place] [address] [place] [address] GFR/1.73 sq M predicted among non-blacks MDRD vol rate/area (S/P/Bld) mL/min/{1.73_m2} Normal >60 [facility] Comment on above: Result Comment: Sour ce- MDRD equation with creatinine calibration to IDMS(NKDEP) eGFR not recommended for drug dose adjustment Performed By: #### H EMDF, PT, BMP3M, PHOS3, MG3, CK3 #### [address] #### VD25H #### [facility] [address] [place] [address] Protein mass conc 5.1 g/dL Low 6.3-8.[address] [facility] Comment on above: Performed By: #### H EMDF, PT, BMP3M, PHOS3, MG3, CK3 #### [address] #### VD25H #### [facility] [address] [place] [address] Urea nitrogen mass conc 22 mg/dL High 7-20 [facility] Comment on above: Performed By: #### H EMDF, PT, BMP3M, PHOS3, MG3, CK3 #### [place] [address] [address] [facility] #### VD25H #### [facility] [address] [place] [address] Chloride molar conc 102 mmol/L Normal 98-107 [facility] Comment on above: Performed By: #### H EMDF, PT, BMP3M, PHOS3, MG3, CK3 #### [place] [address] [facility] [place] #### VD25H #### [facility] [address] [place] [address] Potassium molar conc 3.1 mmol/L Low 3.5-5.1 [facility] Comment on above: Performed By: #### H EMDF, PT, BMP3M, PHOS3, MG3, CK3 #### [place] [address] [facility] [place] #### VD25H #### [facility] [address] [place] [address] Sodium molar conc 131 mmol/L Low 135-145 [facility] Comment on above: Performed By: #### H EMDF, PT, BMP3M, PHOS3, MG3, CK3 #### [place] [address] [address] [facility] #### VD25H #### [facility] [address] [place] [address] Albumin mass conc 2.4 g/dL Low 3.5-5.[address] [facility] Comment on above: Performed By: #### H EMDF, PT, BMP3M, PHOS3, MG3, CK3 #### [place] [address] [facility] [place] #### VD25H #### [facility] [address] [place] [address] Glucose,Bedsideon 08-16-2018 Glucose mass conc 100 mg/dL Normal 70-100 [facility] Comment on above: Result Comment: Test performed by glucose meter. Results may be 10%-15% lower than serum/plasma values. (CLIA ID [id number]) Performed By: #### H EMDF, PT, BMP3M, PHOS3, MG3, CK3 #### [employer] [address] [place], [place] #### VD25H #### [employer] [address] [place] [address] Glucose mass conc 98 mg/dL Normal 70-100 [facility] Comment on above: Result Comment: Test performed by glucose meter. Results may be 10%-15% lower than serum/plasma values. (CLIA ID [id number]) Performed By: #### H EMDF, PT, BMP3M, PHOS3, MG3, CK3 #### [employer] [address] [place] [address] #### VD25H #### [employer] [address] [place] [address] Glucose mass conc 110 mg/dL High 70-100 [facility] Comment on above: Result Comment: Test performed by glucose meter. Results may be 10%-15% lower than serum/plasma values. (CLIA ID [id number]) Performed By: #### H EMDF, PT, BMP3M, PHOS3, MG3, CK3 #### [employer] [address] [place], [place] #### VD25H #### [employer] [address] [place] [address] Glucose mass conc 113 mg/dL High 70-100 [facility] Comment on above: Result Comment: Test performed by glucose meter. Results may be 10%-15% lower than serum/plasma values. (CLIA ID [id number]) Performed By: #### H EMDF, PT, BMP3M, PHOS3, MG3, CK3 #### [employer] [address] [place], [place] #### VD25H #### [facility] [address] [place] [address] Glucose mass conc 126 mg/dL High 70-[address] [facility] Comment on above: Result Comment: Test performed by glucose meter. Results may be 10%-15% lower than serum/plasma values. (CLIA ID [id number]) Performed By: #### H EMDF, PT, BMP3M, PHOS3, MG3, CK3 #### [address] #### VD25H #### [facility] [address] [facility] [place] [address] Hemogram w/ Autodiffon 08-16 Abs Baso Cnt 0.0 10*3/uL Normal 0.0-0.2 [facility] Comment on above: Performed By: #### H EMDF, PT, BMP3M, PHOS3, MG3, CK3 #### [address] #### VD25H #### [facility] [address] [place] [address] Abs Neutrophile Cnt 7.7 10*3/uL High 1.8-7.0 [facility] Comment on above: Performed By: #### H EMDF, PT, BMP3M, PHOS3, MG3, CK3 #### [address] #### VD25H #### [facility] [address] [facility] [place] [address] Basophils/100 WBC (Bld) 0.5 % Normal 0.0-2.0 [facility] Comment on above: Performed By: #### H EMDF, PT, BMP3M, PHOS3, MG3, CK3 #### [address] #### VD25H #### [facility] [address] [facility] [place] [address] Eosinophils #/vol (Bld) 0.1 10*3/uL Normal 0.0-0.5 [facility] Comment on above: Performed By: #### H EMDF, PT, BMP3M, PHOS3, MG3, CK3 #### [facility] [address] [place] #### VD25H #### [facility] [address] [place] [address] Eosinophils/100 WBC (Bld) 1.5 % Normal 1.0-6.0 [facility] Comment on above: Performed By: #### H EMDF, PT, BMP3M, PHOS3, MG3, CK3 #### [address] #### VD25H #### [facility] [address] [place] [address] Erythrocyte distribution width Ratio (RBC) 14.4 % Normal 11.5-14.5 [facility] Comment on above: Performed By: #### H EMDF, PT, BMP3M, PHOS3, MG3, CK3 #### [address] #### VD25H #### [facility] [address] [place] [address] Granulocytes/100 WBC (Bld) 79.7 % Normal 40.0-80.0 [facility] Comment on above: Performed By: #### H EMDF, PT, BMP3M, PHOS3, MG3, CK3 #### [address] #### VD25H #### [facility] [address] [place] [address] Hematocrit Volume Fraction (Bld) 27.1 % Low 40.0-52.0 [facility] Comment on above: Performed By: #### H EMDF, PT, BMP3M, PHOS3, MG3, CK3 #### [address] #### VD25H #### [facility] [address] [place] [address] Hemoglobin mass conc (Bld) 9.2 g/dL Low 13.0-18.0 [facility] Comment on above: Performed By: #### H EMDF, PT, BMP3M, PHOS3, MG3, CK3 #### [address] [place] #### VD25H #### [facility] [address] [place] [address] Lymphocytes #/vol (Bld) 1.0 10*3/uL Normal 1.0-4.3 [facility] Comment on above: Performed By: #### H EMDF, PT, BMP3M, PHOS3, MG3, CK3 #### [address] #### VD25H #### [facility] [address] [place] [address] Lymphocytes/100 WBC (Bld) 10.0 % Low 20.0-40.0 [facility] Comment on above: Performed By: #### H EMDF, PT, BMP3M, PHOS3, MG3, CK3 #### [address] #### VD25H #### [facility] [address] [place] [address] MCH Entitic mass (RBC) 28.5 pg Normal 26.0-34.0 [facility] Comment on above: Performed By: #### H EMDF, PT, BMP3M, PHOS3, MG3, CK3 #### [address] [place] #### VD25H #### [facility] [address] [place] [address] MCHC mass conc (RBC) 33.8 % Normal 32.0-36.0 [facility] Comment on above: Performed By: #### H EMDF, PT, BMP3M, PHOS3, MG3, CK3 #### [address] #### VD25H #### [facility] [address] [place] [address] MCV Entitic volume (RBC) 84.4 fL Normal 80.0-98.0 [facility] Comment on above: Performed By: #### H EMDF, PT, BMP3M, PHOS3, MG3, CK3 #### [address] #### VD25H #### [facility] [address] [place] [address] Monocytes #/vol (Bld) 0.8 10*3/uL Normal 0.0-0.8 [facility] Comment on above: Performed By: #### H EMDF, PT, BMP3M, PHOS3, MG3, CK3 #### [address] #### VD25H #### [facility] [address] [place] [address] Monocytes/100 WBC (Bld) 8.3 % Normal 2.0-10.0 [facility] Comment on above: Performed By: #### H EMDF, PT, BMP3M, PHOS3, MG3, CK3 #### [address] #### VD25H #### [facility] [address] [place] [address] Platelet mean volume Entitic volume (Bld) 8.4 fL Normal 7.4-10.4 [facility] Comment on above: Performed By: #### H EMDF, PT, BMP3M, PHOS3, MG3, CK3 #### [address] #### VD25H #### [facility] [address] [place] [address] Platelets #/vol (Bld) 245 10*3/uL Normal 140-440 [facility] Comment on above: Performed By: #### H EMDF, PT, BMP3M, PHOS3, MG3, CK3 #### [address] #### VD25H #### [facility] [address] [place] [address] RBC #/vol (Bld) 3.21 10*6/uL Low 4.40-5.[address] [facility] Comment on above: Performed By: #### H EMDF, PT, BMP3M, PHOS3, MG3, CK3 #### [address] #### VD25H #### [facility] [address] [place] [address] WBC #/vol (Bld) 9.7 10*3/uL Normal 3.6-10.7 [facility] Comment on above: Performed By: #### H EMDF, PT, BMP3M, PHOS3, MG3, CK3 #### [address] #### VD25H #### [place] [address] [place] [address] Magnesiumon 08-16-2018 Magnesium mass conc 2.1 mg/dL Normal 1.6-2.3 [facility] Comment on above: Performed By: #### H EMDF, PT, BMP3M, PHOS3, MG3, CK3 #### [address] #### VD25H #### [facility] [address] [place] [address] Phosphoruson 08-16-2018 Phosphate mass conc 4.4 mg/dL Normal 2.5-4.5 [facility] Comment on above: Performed By: #### H EMDF, PT, BMP3M, PHOS3, MG3, CK3 #### [address] #### VD25H #### [place] [address] [place] [address] Potassiumon 08-16-2018 Potassium molar conc 3.5 mmol/L Normal 3.5-5.1 [facility] Comment on above: Performed By: #### H EMDF, PT, BMP3M, PHOS3, MG3, CK3 #### [address] #### VD25H #### [facility] [address] [place] [address] Procalcitoninon 08-16-2018 Protein mass conc 3.10 ng/mL Abnormal <0.10 [facility] Comment on above: Performed By: #### H EMDF, PT, BMP3M, PHOS3, MG3, CK3 #### [address] #### VD25H #### [facility] [address] [place] [address] Prothrombin Timeon 9 INR Coag RelTime (PPP) 1.1 Normal 0.9-1.1 [facility] Comment on above: Result Comment: Yefri mmended [...] PT, BMP3M, PHOS3, MG3, CK3 #### [address] #### VD25H #### [facility] [address] [place] [address] Prothrombin time (PT) Coag time (PPP) 11.8 s Normal 9.0-12.0 [facility] Comment on above: Result Comment: . Performed By: #### H EMDF, PT, BMP3M, PHOS3, MG3, CK3 #### [address] #### VD25H #### [facility] [address] [place] [address] US Abdomen Limitedon 019 US Abdomen Limited Patient Name: KATHYA HOOPER Ultrasound Exam Date/Time 08/16/2018 19:12:00 EDT Exam US Abdomen Limited Ordering Physician [id number] JoesphJOEY KING Accession Number [id number] CPT4 Codes 43251 () Reason For Exam elevated transaminases Report [...] Transcribed Date and Time: 08/16/2018 7:26 [facility] Glucose,Bedsideon 08-15-2018 Glucose mass conc 98 mg/dL Normal 70-100 [facility] Comment on above: Result Comment: Test performed by glucose meter. Results may be 10%-15% lower than serum/plasma values. (CLIA ID [id number]) Performed By: #### H EMDF, PT, BMP3M, PHOS3, MG3, CK3 #### [employer] [address] [place] [address] #### VD25H #### [employer] [address] [place] [address] Procalcitoninon 08-15-2018 Interpretation See Below Normal [facility] Comment on above: Result Comment: PCT <0.50 = Low risk of severe sepsis and/or septic shock. PCT >2.00 = High risk of severe sepsis and/or septic shock. Performed By: #### H EMDF, PT, BMP3M, PHOS3, MG3, CK3 #### [address] #### VD25H #### [facility] [address] [place] [address] CULTURE FUNGUSon 08-13-2018 CULTURE FUNGUS CULTURE FUNGUS --> Status: F No fungus isolated after 21 days. Normal [facility] Comment on above: Order Comment: Speci men Source Comment:Body Fluid Performed By: #### H EMDF, PT, BMP3M, PHOS3, MG3, CK3 #### [address] #### VD25H #### [facility] [address] [place] [address] Hemogram w/ Autodiffon 08-01 Abs Baso Cnt 0.2 10*3/uL Normal 0.0-0.2 [facility] Comment on above: Performed By: #### H EMDF, PT, BMP3M, PHOS3, MG3, CK3 #### [address] #### VD25H #### [facility] [address] [facility] [place] [address] Abs Neutrophile Cnt 14.3 10*3/uL High 1.8-7.0 [facility] Comment on above: Performed By: #### H EMDF, PT, BMP3M, PHOS3, MG3, CK3 #### [address] #### VD25H #### [facility] [address] [facility] [place] [address] Basophils/100 WBC (Bld) 1.0 % Normal 0.0-2.0 [facility] Comment on above: Performed By: #### H EMDF, PT, BMP3M, PHOS3, MG3, CK3 #### [place] [address] [address] [place] #### VD25H #### [facility] [address] [place] [address] Eosinophils #/vol (Bld) 0.4 10*3/uL Normal 0.0-0.5 [facility] Comment on above: Performed By: #### H EMDF, PT, BMP3M, PHOS3, MG3, CK3 #### [address] #### VD25H #### [facility] [address] [place] [address] Eosinophils/100 WBC (Bld) 2.3 % Normal 1.0-6.0 [facility] Comment on above: Performed By: #### H EMDF, PT, BMP3M, PHOS3, MG3, CK3 #### [address] #### VD25H #### [facility] [address] [place] [address] Erythrocyte distribution width Ratio (RBC) 13.7 % Normal 11.5-14.5 [facility] Comment on above: Performed By: #### H EMDF, PT, BMP3M, PHOS3, MG3, CK3 #### [address] #### VD25H #### [facility] [address] [place] [address] Granulocytes/100 WBC (Bld) 82.1 % High 40.0-80.0 [facility] Comment on above: Performed By: #### H EMDF, PT, BMP3M, PHOS3, MG3, CK3 #### [address] #### VD25H #### [facility] [address] [place] [address] Hematocrit Volume Fraction (Bld) 31.2 % Low 40.0-52.0 [facility] Comment on above: Performed By: #### H EMDF, PT, BMP3M, PHOS3, MG3, CK3 #### [facility] [address] [place] #### VD25H #### [facility] [address] [place] [address] Hemoglobin mass conc (Bld) 10.5 g/dL Low 13.0-18.0 [facility] Comment on above: Performed By: #### H EMDF, PT, BMP3M, PHOS3, MG3, CK3 #### [address] #### VD25H #### [facility] [address] [place] [address] Lymphocytes #/vol (Bld) 1.6 10*3/uL Normal 1.0-4.3 [facility] Comment on above: Performed By: #### H EMDF, PT, BMP3M, PHOS3, MG3, CK3 #### [address] #### VD25H #### [facility] [address] [place] [address] Lymphocytes/100 WBC (Bld) 9.1 % Low 20.0-40.0 [facility] Comment on above: Performed By: #### H EMDF, PT, BMP3M, PHOS3, MG3, CK3 #### [address] [place], [place] #### VD25H #### [facility] [address] [place] [address] MCH Entitic mass (RBC) 28.9 pg Normal 26.0-34.0 [facility] Comment on above: Performed By: #### H EMDF, PT, BMP3M, PHOS3, MG3, CK3 #### [address] #### VD25H #### [facility] [address] [place] [address] MCHC mass conc (RBC) 33.7 % Normal 32.0-36.0 [facility] Comment on above: Performed By: #### H EMDF, PT, BMP3M, PHOS3, MG3, CK3 #### [facility] [address] [place], [place] #### VD25H #### [facility] [address] [place] [address] MCV Entitic volume (RBC) 85.5 fL Normal 80.0-98.0 [facility] Comment on above: Performed By: #### H EMDF, PT, BMP3M, PHOS3, MG3, CK3 #### [address] #### VD25H #### [facility] [address] [place] [address] Monocytes #/vol (Bld) 1.0 10*3/uL High 0.0-0.8 [facility] Comment on above: Performed By: #### H EMDF, PT, BMP3M, PHOS3, MG3, CK3 #### [address] #### VD25H #### [facility] [address] [place] [address] Monocytes/100 WBC (Bld) 5.5 % Normal 2.0-10.0 [facility] Comment on above: Performed By: #### H EMDF, PT, BMP3M, PHOS3, MG3, CK3 #### [address] #### VD25H #### [facility] [address] [place] [address] Platelet mean volume Entitic volume (Bld) 8.0 fL Normal 7.4-10.4 [facility] Comment on above: Performed By: #### H EMDF, PT, BMP3M, PHOS3, MG3, CK3 #### [address] #### VD25H #### [facility] [address] [place] [address] Platelets #/vol (Bld) 425 10*3/uL Normal 140-440 [facility] Comment on above: Performed By: #### H EMDF, PT, BMP3M, PHOS3, MG3, CK3 #### [address] #### VD25H #### [facility] [address] [place] [address] RBC #/vol (Bld) 3.65 10*6/uL Low 4.40-5.90 [facility] Comment on above: Performed By: #### H EMDF, PT, BMP3M, PHOS3, MG3, CK3 #### [address] #### VD25H #### [place] [address] [place] [address] WBC #/vol (Bld) 17.4 10*3/uL High 3.6-10.7 [facility] Comment on above: Performed By: #### H EMDF, PT, BMP3M, PHOS3, MG3, CK3 #### [address] #### VD25H #### [place] [address] [place] [address] Basic Metabolic Panelon 04-0 Calcium mass conc 8.3 mg/dL Low 8.4-10.4 [facility] Comment on above: Performed By: #### H EMDF, PT, BMP3M, PHOS3, MG3, CK3 #### [address] #### VD25H #### [facility] [address] [place] [address] Glucose mass conc 114 mg/dL High 70-100 [facility] Comment on above: Performed By: #### H EMDF, PT, BMP3M, PHOS3, MG3, CK3 #### [facility] [address] [place] [address] #### VD25H #### [facility] [address] [place] [address] Anion gap molar conc 10 Normal [facility] Comment on above: Performed By: #### H EMDF, PT, BMP3M, PHOS3, MG3, CK3 #### [place] [address] [address] [place], [place] #### VD25H #### [facility] [address] [place] [address] CO2 molar conc 34 mmol/L High 22-30 [facility] Comment on above: Performed By: #### H EMDF, PT, BMP3M, PHOS3, MG3, CK3 #### [address] #### VD25H #### [facility] [address] [place] [address] Creatinine mass conc 0.52 mg/dL Normal 0.52-1.25 [facility] Comment on above: Performed By: #### H EMDF, PT, BMP3M, PHOS3, MG3, CK3 #### [place] [address] [address] [place], [place] #### VD25H #### [facility] [address] [place] [address] GFR/1.73 sq M predicted among blacks MDRD vol rate/area (S/P/Bld) mL/min/{1.73_m2} Normal >60 [facility] Comment on above: Performed By: #### H EMDF, PT, BMP3M, PHOS3, MG3, CK3 #### [address] [place] [address] #### VD25H #### [facility] [address] [place] [address] GFR/1.73 sq M predicted among non-blacks MDRD vol rate/area (S/P/Bld) mL/min/{1.73_m2} Normal >[address] [facility] Comment on above: Result Comment: Sour ce- MDRD equation with creatinine calibration to IDMS(NKDEP) eGFR not recommended for drug dose adjustment Performed By: #### H EMDF, PT, BMP3M, PHOS3, MG3, CK3 #### [place] [address] [place] #### VD25H #### [facility] [address] [place] [address] Urea nitrogen mass conc 23 mg/dL High 7-20 [facility] Comment on above: Performed By: #### H EMDF, PT, BMP3M, PHOS3, MG3, CK3 #### [place] [address] [address] [place] #### VD25H #### [facility] [address] [place] [address] Chloride molar conc 95 mmol/L Low 98-107 [facility] Comment on above: Performed By: #### H EMDF, PT, BMP3M, PHOS3, MG3, CK3 #### [place] [address] [place] #### VD25H #### [facility] [address] [place] [address] Potassium molar conc 3.7 mmol/L Normal 3.5-5.1 [facility] Comment on above: Performed By: #### H EMDF, PT, BMP3M, PHOS3, MG3, CK3 #### [place] [address] [place] #### VD25H #### [facility] [address] [place] [address] Sodium molar conc 139 mmol/L Normal 135-145 [facility] Comment on above: Performed By: #### H EMDF, PT, BMP3M, PHOS3, MG3, CK3 #### [address] [place], [place] #### VD25H #### [facility] [address] [place] [address] Hemogram w/ Autodiffon 07-31 Abs Baso Cnt 0.2 10*3/uL Normal 0.0-0.2 [facility] Comment on above: Performed By: #### H EMDF, PT, BMP3M, PHOS3, MG3, CK3 #### [facility] [address] [place], [place] #### VD25H #### [facility] [address] [place] [address] Abs Neutrophile Cnt 13.4 10*3/uL High 1.8-7.0 [facility] Comment on above: Performed By: #### H EMDF, PT, BMP3M, PHOS3, MG3, CK3 #### [address] #### VD25H #### [facility] [address] [place] [address] Basophils/100 WBC (Bld) 1.0 % Normal 0.0-2.0 [facility] Comment on above: Performed By: #### H EMDF, PT, BMP3M, PHOS3, MG3, CK3 #### [address] #### VD25H #### [facility] [address] [place] [address] Eosinophils #/vol (Bld) 0.5 10*3/uL Normal 0.0-0.5 [facility] Comment on above: Performed By: #### H EMDF, PT, BMP3M, PHOS3, MG3, CK3 #### [address] #### VD25H #### [facility] [address] [place] [address] Eosinophils/100 WBC (Bld) 3.1 % Normal 1.0-6.0 [facility] Comment on above: Performed By: #### H EMDF, PT, BMP3M, PHOS3, MG3, CK3 #### [address] #### VD25H #### [facility] [address] [place] [address] Erythrocyte distribution width Ratio (RBC) 14.0 % Normal 11.5-14.5 [facility] Comment on above: Performed By: #### H EMDF, PT, BMP3M, PHOS3, MG3, CK3 #### [address] #### VD25H #### [facility] [address] [place] [address] Granulocytes/100 WBC (Bld) 80.6 % High 40.0-80.0 [facility] Comment on above: Performed By: #### H EMDF, PT, BMP3M, PHOS3, MG3, CK3 #### [address] #### VD25H #### [place] [address] [place] [address] Hematocrit Volume Fraction (Bld) 32.3 % Low 40.0-52.0 [facility] Comment on above: Performed By: #### H EMDF, PT, BMP3M, PHOS3, MG3, CK3 #### [address] #### VD25H #### [facility] [address] [place] [address] Hemoglobin mass conc (Bld) 10.8 g/dL Low 13.0-18.0 [facility] Comment on above: Performed By: #### H EMDF, PT, BMP3M, PHOS3, MG3, CK3 #### [address] #### VD25H #### [facility] [address] [place] [address] Lymphocytes #/vol (Bld) 1.6 10*3/uL Normal 1.0-4.3 [facility] Comment on above: Performed By: #### H EMDF, PT, BMP3M, PHOS3, MG3, CK3 #### [address] #### VD25H #### [facility] [address] [place] [address] Lymphocytes/100 WBC (Bld) 9.8 % Low 20.0-40.0 [facility] Comment on above: Performed By: #### H EMDF, PT, BMP3M, PHOS3, MG3, CK3 #### [address] #### VD25H #### [facility] [address] [place] [address] MCH Entitic mass (RBC) 28.9 pg Normal 26.0-34.0 [facility] Comment on above: Performed By: #### H EMDF, PT, BMP3M, PHOS3, MG3, CK3 #### [address] #### VD25H #### [place] [address] [place] [address] MCHC mass conc (RBC) 33.6 % Normal 32.0-36.0 [facility] Comment on above: Performed By: #### H EMDF, PT, BMP3M, PHOS3, MG3, CK3 #### [address] #### VD25H #### [place] [address] [place] [address] MCV Entitic volume (RBC) 86.1 fL Normal 80.0-98.0 [facility] Comment on above: Performed By: #### H EMDF, PT, BMP3M, PHOS3, MG3, CK3 #### [address] #### VD25H #### [facility] [address] [place] [address] Monocytes #/vol (Bld) 0.9 10*3/uL High 0.0-0.8 [facility] Comment on above: Performed By: #### H EMDF, PT, BMP3M, PHOS3, MG3, CK3 #### [address] [place], [place] #### VD25H #### [facility] [address] [place] [address] Monocytes/100 WBC (Bld) 5.5 % Normal 2.0-10.0 [facility] Comment on above: Performed By: #### H EMDF, PT, BMP3M, PHOS3, MG3, CK3 #### [place] [address] [place] #### VD25H #### [facility] [address] [place] [address] Platelet mean volume Entitic volume (Bld) 8.2 fL Normal 7.4-10.4 [facility] Comment on above: Performed By: #### H EMDF, PT, BMP3M, PHOS3, MG3, CK3 #### [address] #### VD25H #### [facility] [address] [place] [address] Platelets #/vol (Bld) 475 10*3/uL High 140-440 [facility] Comment on above: Performed By: #### H EMDF, PT, BMP3M, PHOS3, MG3, CK3 #### [address] #### VD25H #### [facility] [address] [place] [address] RBC #/vol (Bld) 3.75 10*6/uL Low 4.40-5.[address] [facility] Comment on above: Performed By: #### H EMDF, PT, BMP3M, PHOS3, MG3, CK3 #### [address] #### VD25H #### [facility] [address] [place] [address] WBC #/vol (Bld) 16.6 10*3/uL High 3.6-10.7 [facility] Comment on above: Performed By: #### H EMDF, PT, BMP3M, PHOS3, MG3, CK3 #### [place] [address] [place] #### VD25H #### [facility] [address] [place] [address] Magnesiumon 07-31-2018 Magnesium mass conc 2.4 mg/dL High 1.6-2.3 [facility] Comment on above: Performed By: #### H EMDF, PT, BMP3M, PHOS3, MG3, CK3 #### [place] [address] [place] #### VD25H #### [facility] [address] [place] [address] Phosphoruson 07-31-2018 Phosphate mass conc 4.5 mg/dL Normal 2.5-4.5 [facility] Comment on above: Performed By: #### H EMDF, PT, BMP3M, PHOS3, MG3, CK3 #### [place] [address] [place] #### VD25H #### [facility] [address] [place] [address] Basic Metabolic Panelon 04- Calcium mass conc 8.6 mg/dL Normal 8.4-10.4 [facility] Comment on above: Performed By: #### H EMDF, PT, BMP3M, PHOS3, MG3, CK3 #### [place] [address] [place] #### VD25H #### [facility] [address] [place] [address] Anion gap molar conc 8 Normal [facility] Comment on above: Performed By: #### H EMDF, PT, BMP3M, PHOS3, MG3, CK3 #### [address] [place], [place] #### VD25H #### [facility] [address] [place] [address] CO2 molar conc 34 mmol/L High 22-30 [facility] Comment on above: Performed By: #### H EMDF, PT, BMP3M, PHOS3, MG3, CK3 #### [facility] [address] [place] [address] #### VD25H #### [facility] [address] [place] [address] Creatinine mass conc 0.56 mg/dL Normal 0.52-1.25 [facility] Comment on above: Performed By: #### H EMDF, PT, BMP3M, PHOS3, MG3, CK3 #### [place] [address] [place] [address] #### VD25H #### [facility] [address] [place] [address] GFR/1.73 sq M predicted among blacks MDRD vol rate/area (S/P/Bld) mL/min/{1.73_m2} Normal >60 [facility] Comment on above: Performed By: #### H EMDF, PT, BMP3M, PHOS3, MG3, CK3 #### [address] [address] #### VD25H #### [facility] [address] [place] [address] GFR/1.73 sq M predicted among non-blacks MDRD vol rate/area (S/P/Bld) mL/min/{1.73_m2} Normal >[address] [facility] Comment on above: Result Comment: Sour ce- MDRD equation with creatinine calibration to IDMS(NKDEP) eGFR not recommended for drug dose adjustment Performed By: #### H EMDF, PT, BMP3M, PHOS3, MG3, CK3 #### [address] [place] [address] #### VD25H #### [facility] [address] [place] [address] Glucose mass conc 121 mg/dL High 70-[address] [facility] Comment on above: Performed By: #### H EMDF, PT, BMP3M, PHOS3, MG3, CK3 #### [place] [address] [facility] [address] #### VD25H #### [facility] [address] [place] [address] Urea nitrogen mass conc 29 mg/dL High 7-20 [facility] Comment on above: Performed By: #### H EMDF, PT, BMP3M, PHOS3, MG3, CK3 #### [facility] [address] [facility], [place] #### VD25H #### [facility] [address] [place] [address] Chloride molar conc 99 mmol/L Normal 98-107 [facility] Comment on above: Performed By: #### H EMDF, PT, BMP3M, PHOS3, MG3, CK3 #### [place] [address] [facility] #### VD25H #### [facility] [address] [place] [address] Potassium molar conc 3.7 mmol/L Normal 3.5-5.1 [facility] Comment on above: Performed By: #### H EMDF, PT, BMP3M, PHOS3, MG3, CK3 #### [facility] [address] [facility], [place] #### VD25H #### [facility] [address] [place] [address] Sodium molar conc 141 mmol/L Normal 135-[address] [facility] Comment on above: Performed By: #### H EMDF, PT, BMP3M, PHOS3, MG3, CK3 #### [place] [address] [facility], [place] #### VD25H #### [facility] [address] [place] [address] CR Abdomen APon 07-30-2018 CR Abdomen AP Patient Name: KATHYA HOOPER Diagnostic Radiology Exam Date/Time 07/30/2018 10:28:42 EDT Exam CR Abdomen AP Ordering Physician [id number] GUNN Accession Number [id number] CPT4 Codes 59811 () Reason For Exam abd distension Report [...] Transcribed Date and Time: 07/30/2018 3:57 Normal [facility] CR Chest Portableon 07-31-19 CR Chest Portable Patient Name: KATHYA HOOPER Diagnostic Radiology Exam Date/Time 07/30/2018 12:28:13 EDT Exam CR Chest Portable Ordering Physician SALO DAVIS Accession Number [id number] CPT4 Codes 78895 () Reason For Exam line reposition Report [...] Transcribed Date and Time: 07/30/2018 1:32 [facility] CR Chest Portable Patient Name: KATHYA HOOPER Diagnostic Radiology Exam Date/Time 07/30/2018 06:40:08 EDT Exam CR Chest Portable Ordering Physician MARIA EUGENIA PREEZ Accession Number [id number] CPT4 Codes 75058 () Reason For Exam ETT placement Report [...] Transcribed Date and Time: 07/30/2018 10:26 Normal [facility] [employer] Glucose,Bedsideon 07-30-2018 Glucose mass conc 125 mg/dL High 70-100 [facility] Comment on above: Result Comment: Test performed by glucose meter. Results may be 10%-15% lower than serum/plasma values. (CLIA ID [id number]) Performed By: #### H EMDF, PT, BMP3M, PHOS3, MG3, CK3 #### [employer] [address] [place] [address] #### VD25H #### [employer] [address] [place] [address] Glucose mass conc 117 mg/dL High 70-[address] [facility] Comment on above: Result Comment: Test performed by glucose meter. Results may be 10%-15% lower than serum/plasma values. (CLIA ID [id number]) Performed By: #### H EMDF, PT, BMP3M, PHOS3, MG3, CK3 #### [address] #### VD25H #### [facility] [address] [place] [address] Glucose mass conc 44 mg/dL Low 70-[address] [facility] Comment on above: Result Comment: Repe ated Test; Test performed by glucose meter. Results may be 10%-15% lower than serum/plasma values. (CLIA ID [id number]) Performed By: #### H EMDF, PT, BMP3M, PHOS3, MG3, CK3 #### [address] #### VD25H #### [facility] [address] [place] [address] Hemogram w/ Autodiffon 07-30 Abs Baso Cnt 0.2 10*3/uL Normal 0.0-0.2 [facility] Comment on above: Performed By: #### H EMDF, PT, BMP3M, PHOS3, MG3, CK3 #### [address] #### VD25H #### [facility] [address] [place] [address] Abs Neutrophile Cnt 13.2 10*3/uL High 1.8-7.0 [facility] Comment on above: Performed By: #### H EMDF, PT, BMP3M, PHOS3, MG3, CK3 #### [address] #### VD25H #### [facility] [address] [place] [address] Basophils/100 WBC (Bld) 0.9 % Normal 0.0-2.0 [facility] Comment on above: Performed By: #### H EMDF, PT, BMP3M, PHOS3, MG3, CK3 #### [address] #### VD25H #### [facility] [address] [place] [address] Eosinophils #/vol (Bld) 0.5 10*3/uL Normal 0.0-0.5 [facility] Comment on above: Performed By: #### H EMDF, PT, BMP3M, PHOS3, MG3, CK3 #### [address] #### VD25H #### [facility] [address] [place] [address] Eosinophils/100 WBC (Bld) 2.8 % Normal 1.0-6.0 [facility] Comment on above: Performed By: #### H EMDF, PT, BMP3M, PHOS3, MG3, CK3 #### [address] #### VD25H #### [facility] [address] [place] [address] Erythrocyte distribution width Ratio (RBC) 13.7 % Normal 11.5-14.5 [facility] Comment on above: Performed By: #### H EMDF, PT, BMP3M, PHOS3, MG3, CK3 #### [address] #### VD25H #### [facility] [address] [facility] [place] [address] Granulocytes/100 WBC (Bld) 76.6 % Normal 40.0-80.0 [facility] Comment on above: Performed By: #### H EMDF, PT, BMP3M, PHOS3, MG3, CK3 #### [address] #### VD25H #### [facility] [address] [place] [address] Hematocrit Volume Fraction (Bld) 31.4 % Low 40.0-52.0 [facility] Comment on above: Performed By: #### H EMDF, PT, BMP3M, PHOS3, MG3, CK3 #### [place] [address] [place] #### VD25H #### [facility] [address] [place] [address] Hemoglobin mass conc (Bld) 10.6 g/dL Low 13.0-18.0 [facility] Comment on above: Performed By: #### H EMDF, PT, BMP3M, PHOS3, MG3, CK3 #### [address] #### VD25H #### [facility] [address] [place] [address] Lymphocytes #/vol (Bld) 2.2 10*3/uL Normal 1.0-4.3 [facility] Comment on above: Performed By: #### H EMDF, PT, BMP3M, PHOS3, MG3, CK3 #### [address] #### VD25H #### [facility] [address] [place] [address] Lymphocytes/100 WBC (Bld) 12.9 % Low 20.0-40.0 [facility] Comment on above: Performed By: #### H EMDF, PT, BMP3M, PHOS3, MG3, CK3 #### [address] #### VD25H #### [facility] [address] [place] [address] MCH Entitic mass (RBC) 29.2 pg Normal 26.0-34.0 [facility] Comment on above: Performed By: #### H EMDF, PT, BMP3M, PHOS3, MG3, CK3 #### [address] #### VD25H #### [facility] [address] [place] [address] MCHC mass conc (RBC) 33.8 % Normal 32.0-36.0 [facility] Comment on above: Performed By: #### H EMDF, PT, BMP3M, PHOS3, MG3, CK3 #### [address] [place], [place] #### VD25H #### [facility] [address] [place] [address] MCV Entitic volume (RBC) 86.4 fL Normal 80.0-98.0 [facility] Comment on above: Performed By: #### H EMDF, PT, BMP3M, PHOS3, MG3, CK3 #### [address] #### VD25H #### [facility] [address] [place] [address] Monocytes #/vol (Bld) 1.2 10*3/uL High 0.0-0.8 [facility] Comment on above: Performed By: #### H EMDF, PT, BMP3M, PHOS3, MG3, CK3 #### [address] #### VD25H #### [facility] [address] [place] [address] Monocytes/100 WBC (Bld) 6.8 % Normal 2.0-10.0 [facility] Comment on above: Performed By: #### H EMDF, PT, BMP3M, PHOS3, MG3, CK3 #### [address] #### VD25H #### [facility] [address] [place] [address] Platelet mean volume Entitic volume (Bld) 8.1 fL Normal 7.4-10.4 [facility] Comment on above: Performed By: #### H EMDF, PT, BMP3M, PHOS3, MG3, CK3 #### [address] #### VD25H #### [facility] [address] [place] [address] Platelets #/vol (Bld) 507 10*3/uL High 140-440 [facility] Comment on above: Performed By: #### H EMDF, PT, BMP3M, PHOS3, MG3, CK3 #### [facility] [address] [place] #### VD25H #### [facility] [address] [place] [address] RBC #/vol (Bld) 3.64 10*6/uL Low 4.40-5.[address] [facility] Comment on above: Performed By: #### H EMDF, PT, BMP3M, PHOS3, MG3, CK3 #### [place] [address] [place], [place] #### VD25H #### [place] [address] [place] [address] WBC #/vol (Bld) 17.2 10*3/uL High 3.6-10.7 [facility] Comment on above: Performed By: #### H EMDF, PT, BMP3M, PHOS3, MG3, CK3 #### [place] [address] [place], [place] #### VD25H #### [place] [address] [place] [address] Magnesiumon 07-30-2018 Magnesium mass conc 2.5 mg/dL High 1.6-2.3 [facility] Comment on above: Performed By: #### H EMDF, PT, BMP3M, PHOS3, MG3, CK3 #### [address] #### VD25H #### [facility] [address] [place] [address] Phosphoruson 07-30-2018 Phosphate mass conc 4.5 mg/dL Normal 2.5-4.5 [facility] Comment on above: Performed By: #### H EMDF, PT, BMP3M, PHOS3, MG3, CK3 #### [facility] [employer] [facility] [address] [place] [address] #### VD25H #### [facility] [employer] [address] [place] [address] VL Venous Duplex US Lower Ex t Bilateralon 07-30-2018 VL Venous Duplex US Lower Ext Bilateral Patient Name: KATHYA HOOPER Ultrasound Exam Date/Time 07/30/2018 12:27:47 EDT Exam VL Venous Duplex US Lower Ext Bilateral Ordering Physician ETIENNE MARTÍNEZ JULIE Accession Number [id number] CPT4 Codes 16201 () Reason For Exam edema Report [facility] --- Lower Extremity Venous Duplex Report Patient Name: Kathya Hooper : 1955 Study Date: 07/30/2018 W (63yrs) Age: 63 Account: [id number] Gender: M Loc: [id number] BP: Ordering: Yesenia Martínez Technologist: Ordering Physician: Yesenia Martínez Willow Worker: Barbara Suarez RDMS, T Interpreting Physician: Krysta Arora --- Location: [facility] --- INDICATIONS: Edema. --- CONCLUSIONS 1. [...] performed. The images were obtained using a In Ovo E9 vascular ultrasound machine. --- VENOUS FLOW [...] ---------+-------+--- --+ Electronically signed by: Krysta Arora [id number] Final Dictated: 07/30/2018 1:30 pm Dictating Physician: KRYSTA ARORA Signed Date and Time: 07/30/2018 1:29 pm Signed by: KRYSTA ARORA Normal [employer] Arterial Blood Gaseson 07-29 CO2 molar conc 34.4 mmol/L High 23.0-27.0 [employer] [facility] Comment on above: Performed By: #### H EMDF, PT, BMP3M, PHOS3, MG3, CK3 #### [employer] [address] [place] [phone] #### VD25H #### [place] [address] [place] [address] HCO3 molar conc (Bld) 33.0 mmol/L High 21.0-25.0 [facility] Comment on above: Performed By: #### H EMDF, PT, BMP3M, PHOS3, MG3, CK3 #### [address] #### VD25H #### [facility] [address] [place] [address] Hemoglobin mass conc (Bld) 11.5 g/dL Normal ScreenOnly [facility] Comment on above: Performed By: #### H EMDF, PT, BMP3M, PHOS3, MG3, CK3 #### [address] #### VD25H #### [place] [address] [place] [address] Oxygen ppres (Bld) 84.2 mm[Hg] Normal 80.0-100.0 [facility] Comment on above: Performed By: #### H EMDF, PT, BMP3M, PHOS3, MG3, CK3 #### [address] #### VD25H #### [place] [address] [place] [address] Oxygen saturation in Blood 96.2 % Normal 95.0-100.0 [facility] Comment on above: Performed By: #### H EMDF, PT, BMP3M, PHOS3, MG3, CK3 #### [address] #### VD25H #### [place] [address] [place] [address] pCO2 46.8 mm[Hg] High 35.0-45.0 [facility] Comment on above: Performed By: #### H EMDF, PT, BMP3M, PHOS3, MG3, CK3 #### [address] #### VD25H #### [facility] [address] [place] [address] pH (Bld) 7.466 High 7.350-7.450 [facility] Comment on above: Performed By: #### H EMDF, PT, BMP3M, PHOS3, MG3, CK3 #### [place] [address] [place] #### VD25H #### [facility] [address] [place] [address] Std Base Excess 8.2 mmol/L High -3.0-3.0 [facility] Comment on above: Performed By: #### H EMDF, PT, BMP3M, PHOS3, MG3, CK3 #### [address] [place], [place] #### VD25H #### [place] [address] [place] [address] FIO2 .30 Normal [facility] Comment on above: Performed By: #### H EMDF, PT, BMP3M, PHOS3, MG3, CK3 #### [place] [address] [address] [facility] [place] #### VD25H #### [address] [place] [address] Basic Metabolic Panelon 03-3 Calcium mass conc 8.5 mg/dL Normal 8.4-10.[address] [facility] Comment on above: Performed By: #### H EMDF, PT, BMP3M, PHOS3, MG3, CK3 #### [place] [address] [place] #### VD25H #### [facility] [address] [place] [address] Glucose mass conc 163 mg/dL High 70-[address] [facility] Comment on above: Performed By: #### H EMDF, PT, BMP3M, PHOS3, MG3, CK3 #### [place] [address] [place] #### VD25H #### [facility] [address] [place] [address] Anion gap molar conc 10 Normal [facility] Comment on above: Performed By: #### H EMDF, PT, BMP3M, PHOS3, MG3, CK3 #### [address] [place] [address] #### VD25H #### [facility] [address] [place] [address] CO2 molar conc 37 mmol/L High 22-30 [facility] Comment on above: Performed By: #### H EMDF, PT, BMP3M, PHOS3, MG3, CK3 #### [address] [address] #### VD25H #### [facility] [address] [place] [address] Creatinine mass conc 0.57 mg/dL Normal 0.52-1.25 [facility] Comment on above: Performed By: #### H EMDF, PT, BMP3M, PHOS3, MG3, CK3 #### [address] [address] #### VD25H #### [facility] [address] [place] [address] GFR/1.73 sq M predicted among blacks MDRD vol rate/area (S/P/Bld) mL/min/{1.73_m2} Normal >60 [facility] Comment on above: Performed By: #### H EMDF, PT, BMP3M, PHOS3, MG3, CK3 #### [address] [address] #### VD25H #### [facility] [address] [place] [address] GFR/1.73 sq M predicted among non-blacks MDRD vol rate/area (S/P/Bld) mL/min/{1.73_m2} Normal >[address] [facility] Comment on above: Result Comment: Sour ce- MDRD equation with creatinine calibration to IDMS(NKDEP) eGFR not recommended for drug dose adjustment Performed By: #### H EMDF, PT, BMP3M, PHOS3, MG3, CK3 #### [place] [address] [place] #### VD25H #### [facility] [address] [place] [address] Urea nitrogen mass conc 30 mg/dL High 7-20 [facility] Comment on above: Performed By: #### H EMDF, PT, BMP3M, PHOS3, MG3, CK3 #### [place] [address] [address] [facility] [place] #### VD25H #### [facility] [address] [place] [address] Chloride molar conc 95 mmol/L Low 98-107 [facility] Comment on above: Performed By: #### H EMDF, PT, BMP3M, PHOS3, MG3, CK3 #### [place] [address] [place] #### VD25H #### [facility] [address] [place] [address] Potassium molar conc 3.3 mmol/L Low 3.5-5.1 [facility] Comment on above: Performed By: #### H EMDF, PT, BMP3M, PHOS3, MG3, CK3 #### [place] [address] [address] [facility] [place] #### VD25H #### [facility] [address] [place] [address] Sodium molar conc 141 mmol/L Normal 135-[address] [facility] Comment on above: Performed By: #### H EMDF, PT, BMP3M, PHOS3, MG3, CK3 #### [place] [address] [address] [facility] [place] #### VD25H #### [facility] [address] [place] [address] CR Chest Portableon 07-30-19 19 CR Chest Portable Patient Name: KATHYA HOOPER [facility]: [id number] Diagnostic Radiology Exam Date/Time 07/29/2018 07:01:44 EDT Exam CR Chest Portable Ordering Physician MARIA EUGENIA PEREZ Accession Number [id number] CPT4 Codes 58378 () Reason For Exam ETT placement Report [...] Transcribed Date and Time: 07/29/2018 9:04 Normal [facility] [employer] Glucose,Bedsideon 07-29-2018 Glucose mass conc 124 mg/dL High 70-100 [facility] Comment on above: Result Comment: Test performed by glucose meter. Results may be 10%-15% lower than serum/plasma values. (CLIA ID [id number]) Performed By: #### H EMDF, PT, BMP3M, PHOS3, MG3, CK3 #### [employer] [address] [place], [place] #### VD25H #### [employer] [address] [place] [address] Glucose mass conc 175 mg/dL High 70-100 [facility] [employer] [facility] Comment on above: Result Comment: Test performed by glucose meter. Results may be 10%-15% lower than serum/plasma values. (CLIA ID [id number]) Performed By: #### H EMDF, PT, BMP3M, PHOS3, MG3, CK3 #### [facility] [address] [place] [address] #### VD25H #### [employer] [address] [place] [address] Glucose mass conc 138 mg/dL High 70-100 [facility] [facility] Comment on above: Result Comment: Test performed by glucose meter. Results may be 10%-15% lower than serum/plasma values. (CLIA ID [id number]) Performed By: #### H EMDF, PT, BMP3M, PHOS3, MG3, CK3 #### [address] #### VD25H #### [facility] [address] [place] [address] Glucose mass conc 147 mg/dL High 70-100 [facility] [facility] Comment on above: Result Comment: Test performed by glucose meter. Results may be 10%-15% lower than serum/plasma values. (CLIA ID [id number]) Performed By: #### H EMDF, PT, BMP3M, PHOS3, MG3, CK3 #### [facility] [employer] [address] #### VD25H #### [facility] [employer] [facility] [address] [place] [address] Hemogram w/ Autodiffon 07-29 Erythrocyte distribution width Ratio (RBC) 13.8 % Normal 11.5-14.5 [facility] Comment on above: Performed By: #### H EMDF, PT, BMP3M, PHOS3, MG3, CK3 #### [address] #### VD25H #### [facility] [address] [place] [address] Hematocrit Volume Fraction (Bld) 32.9 % Low 40.0-52.0 [facility] Comment on above: Performed By: #### H EMDF, PT, BMP3M, PHOS3, MG3, CK3 #### [address] #### VD25H #### [facility] [address] [place] [address] Hemoglobin mass conc (Bld) 11.0 g/dL Low 13.0-18.0 [facility] Comment on above: Performed By: #### H EMDF, PT, BMP3M, PHOS3, MG3, CK3 #### [address] #### VD25H #### [facility] [address] [place] [address] MCH Entitic mass (RBC) 29.0 pg Normal 26.0-34.0 [facility] Comment on above: Performed By: #### H EMDF, PT, BMP3M, PHOS3, MG3, CK3 #### [address] #### VD25H #### [facility] [address] [place] [address] MCHC mass conc (RBC) 33.6 % Normal 32.0-36.0 [facility] Comment on above: Performed By: #### H EMDF, PT, BMP3M, PHOS3, MG3, CK3 #### [address] #### VD25H #### [facility] [address] [facility] [place] [address] MCV Entitic volume (RBC) 86.3 fL Normal 80.0-98.0 [facility] Comment on above: Performed By: #### H EMDF, PT, BMP3M, PHOS3, MG3, CK3 #### [address] #### VD25H #### [facility] [address] [place] [address] Platelet mean volume Entitic volume (Bld) 8.1 fL Normal 7.4-10.4 [facility] Comment on above: Performed By: #### H EMDF, PT, BMP3M, PHOS3, MG3, CK3 #### [address] #### VD25H #### [facility] [address] [place] [address] Platelets #/vol (Bld) 501 10*3/uL High 140-440 [facility] Comment on above: Performed By: #### H EMDF, PT, BMP3M, PHOS3, MG3, CK3 #### [facility] [address] [place] #### VD25H #### [facility] [address] [place] [address] RBC #/vol (Bld) 3.81 10*6/uL Low 4.40-5.90 [facility] Comment on above: Performed By: #### H EMDF, PT, BMP3M, PHOS3, MG3, CK3 #### [address] #### VD25H #### [facility] [address] [place] [address] WBC #/vol (Bld) 20.8 10*3/uL High 3.6-10.7 [facility] Comment on above: Performed By: #### H EMDF, PT, BMP3M, PHOS3, MG3, CK3 #### [address] #### VD25H #### [facility] [address] [place] [address] Magnesiumon 07-29-2018 Magnesium mass conc 2.5 mg/dL High 1.6-2.3 [facility] Comment on above: Performed By: #### H EMDF, PT, BMP3M, PHOS3, MG3, CK3 #### [facility] [address] [place], [place] #### VD25H #### [facility] [address] [place] [address] Manual Diffon 07-29-2018 Abs Neutrophile Cnt 17.3 10*3/uL High 2.2-8.2 [facility] Comment on above: Performed By: #### H EMDF, PT, BMP3M, PHOS3, MG3, CK3 #### [address] #### VD25H #### [facility] [address] [place] [address] Bands 1 % Normal 0-3 [facility] Comment on above: Performed By: #### H EMDF, PT, BMP3M, PHOS3, MG3, CK3 #### [facility] [address] [place] #### VD25H #### [facility] [address] [place] [address] Eosinophils #/vol (Bld) 0.6 10*3/uL High 0.0-0.5 [facility] Comment on above: Performed By: #### H EMDF, PT, BMP3M, PHOS3, MG3, CK3 #### [place] [address] [place] #### VD25H #### [facility] [address] [place] [address] Eosinophils/100 WBC (Bld) 3 % Normal 1-6 [facility] Comment on above: Performed By: #### H EMDF, PT, BMP3M, PHOS3, MG3, CK3 #### [place] [address] [place] #### VD25H #### [facility] [address] [place] [address] Lymphocytes #/vol (Bld) 2.3 10*3/uL Normal 1.1-4.5 [facility] Comment on above: Performed By: #### H EMDF, PT, BMP3M, PHOS3, MG3, CK3 #### [place] [address] [place] #### VD25H #### [facility] [address] [place] [address] Lymphocytes/100 WBC (Bld) 11 % Low 20-40 [facility] Comment on above: Performed By: #### H EMDF, PT, BMP3M, PHOS3, MG3, CK3 #### [place] [address] [place] #### VD25H #### [facility] [address] [place] [address] Metamyelocytes 1 % Abnormal <1 [facility] Comment on above: Performed By: #### H EMDF, PT, BMP3M, PHOS3, MG3, CK3 #### [place] [address] [place] #### VD25H #### [facility] [address] [place] [address] Monocytes #/vol (Bld) 0.4 10*3/uL Normal 0.2-1.1 [facility] Comment on above: Performed By: #### H EMDF, PT, BMP3M, PHOS3, MG3, CK3 #### [place] [address] [place] #### VD25H #### [place] [address] [place] [address] Monocytes/100 WBC (Bld) 2 % Normal 2-10 [facility] Comment on above: Performed By: #### H EMDF, PT, BMP3M, PHOS3, MG3, CK3 #### [place] [address] [place] #### VD25H #### [place] [address] [place] [address] RBC morphology finding Nom (Bld) See Prev Normal [facility] Comment on above: Performed By: #### H EMDF, PT, BMP3M, PHOS3, MG3, CK3 #### [place] [address] [place] #### VD25H #### [facility] [address] [place] [address] Seg Neutrophils 82 % High 40-80 [facility] Comment on above: Performed By: #### H EMDF, PT, BMP3M, PHOS3, MG3, CK3 #### [place] [address] [place] #### VD25H #### [place] [address] [place] [address] Abs Baso Cnt 0.0 10*3/uL Normal 0.0-0.2 [facility] Comment on above: Performed By: #### H EMDF, PT, BMP3M, PHOS3, MG3, CK3 #### [place] [address] [place] #### VD25H #### [facility] [address] [place] [address] Basophils/100 WBC (Bld) 0 % Normal 0-2 [facility] Comment on above: Performed By: #### H EMDF, PT, BMP3M, PHOS3, MG3, CK3 #### [address] #### VD25H #### [facility] [address] [place] [address] Cells counted 100 Normal [facility] Comment on above: Performed By: #### H EMDF, PT, BMP3M, PHOS3, MG3, CK3 #### [address] #### VD25H #### [facility] [address] [place] [address] Phosphoruson 07-29-2018 Phosphate mass conc 4.2 mg/dL Normal 2.5-4.5 [facility] Comment on above: Performed By: #### H EMDF, PT, BMP3M, PHOS3, MG3, CK3 #### [address] #### VD25H #### [facility] [address] [place] [address] Procalcitoninon 07-29-2018 Protein mass conc 0.11 ng/mL Abnormal <0.[address] [facility] Comment on above: Performed By: #### H EMDF, PT, BMP3M, PHOS3, MG3, CK3 #### [address] #### VD25H #### [employer] [address] [place] [address] Interpretation See Below Normal [facility] Comment on above: Result Comment: PCT <0.50 = Low risk of severe sepsis and/or septic shock. PCT >2.00 = High risk of severe sepsis and/or septic shock. Performed By: #### H EMDF, PT, BMP3M, PHOS3, MG3, CK3 #### [address] #### VD25H #### [facility] [address] [place] [address] Vancomycin Troughon 07-30-19 19 Vancomycin Trough 12.2 ug/mL Low 15.0-20.[address] [facility] Comment on above: Result Comment: . Performed By: #### H EMDF, PT, BMP3M, PHOS3, MG3, CK3 #### [address] #### VD25H #### [address] [place] [address] Basic Metabolic Panelon 03-3 Calcium mass conc 8.6 mg/dL Normal 8.4-10.4 [facility] Comment on above: Performed By: #### H EMDF, PT, BMP3M, PHOS3, MG3, CK3 #### [address] #### VD25H #### [address] [place] [address] Glucose mass conc 158 mg/dL High 70-[address] [facility] Comment on above: Performed By: #### H EMDF, PT, BMP3M, PHOS3, MG3, CK3 #### [address] #### VD25H #### [address] [place] [address] Urea nitrogen mass conc 29 mg/dL High 7-20 [facility] Comment on above: Performed By: #### H EMDF, PT, BMP3M, PHOS3, MG3, CK3 #### [facility] [address] [place] [address] #### VD25H #### [facility] [address] [place] [address] Anion gap molar conc 9 Normal [facility] Comment on above: Performed By: #### H EMDF, PT, BMP3M, PHOS3, MG3, CK3 #### [place] [address] [place] #### VD25H #### [facility] [address] [place] [address] CO2 molar conc 32 mmol/L High 22-30 [facility] Comment on above: Performed By: #### H EMDF, PT, BMP3M, PHOS3, MG3, CK3 #### [address] #### VD25H #### [facility] [address] [place] [address] Creatinine mass conc 0.61 mg/dL Normal 0.52-1.25 [facility] Comment on above: Performed By: #### H EMDF, PT, BMP3M, PHOS3, MG3, CK3 #### [address] #### VD25H #### [facility] [address] [place] [address] GFR/1.73 sq M predicted among blacks MDRD vol rate/area (S/P/Bld) mL/min/{1.73_m2} Normal >60 [facility] Comment on above: Performed By: #### H EMDF, PT, BMP3M, PHOS3, MG3, CK3 #### [address] #### VD25H #### [facility] [address] [place] [address] GFR/1.73 sq M predicted among non-blacks MDRD vol rate/area (S/P/Bld) mL/min/{1.73_m2} Normal >[address] [facility] Comment on above: Result Comment: Sour ce- MDRD equation with creatinine calibration to IDMS(NKDEP) eGFR not recommended for drug dose adjustment Performed By: #### H EMDF, PT, BMP3M, PHOS3, MG3, CK3 #### [facility] [address] [place] [address] #### VD25H #### [facility] [address] [place] [address] Potassium molar conc 3.6 mmol/L Normal 3.5-5.1 [facility] Comment on above: Performed By: #### H EMDF, PT, BMP3M, PHOS3, MG3, CK3 #### [facility] [address] [facility] [place] #### VD25H #### [facility] [address] [place] [address] Chloride molar conc 100 mmol/L Normal 98-107 [facility] Comment on above: Performed By: #### H EMDF, PT, BMP3M, PHOS3, MG3, CK3 #### [facility] [address] [place] [facility] [place] [address] #### VD25H #### [facility] [address] [place] [address] Sodium molar conc 141 mmol/L Normal 135-[address] [facility] Comment on above: Performed By: #### H EMDF, PT, BMP3M, PHOS3, MG3, CK3 #### [facility] [address] [facility] [place] #### VD25H #### [facility] [address] [place] [address] CR Chest Portableon 07-29-19 19 CR Chest Portable Patient Name: KATHYA HOOPER Diagnostic Radiology Exam Date/Time 07/28/2018 07:09:40 EDT Exam CR Chest Portable Ordering Physician MARIA EUGENIA PEREZ Accession Number [id number] CPT4 Codes 16842 () Reason For Exam ETT placement Report [...] Transcribed Date and Time: 07/28/2018 7:16 Normal [facility] Glucose,Bedsideon 07-28-2018 Glucose mass conc 149 mg/dL High 70-100 [facility] Comment on above: Result Comment: Test performed by glucose meter. Results may be 10%-15% lower than serum/plasma values. (CLIA ID [id number]) Performed By: #### H EMDF, PT, BMP3M, PHOS3, MG3, CK3 #### [facility] [address] [place] [address] #### VD25H #### [facility] [address] [place] [address] Glucose mass conc 142 mg/dL High 70-100 [facility] [employer] [facility] Comment on above: Result Comment: Test performed by glucose meter. Results may be 10%-15% lower than serum/plasma values. (CLIA ID [id number]) Performed By: #### H EMDF, PT, BMP3M, PHOS3, MG3, CK3 #### [facility] [address] [place] [address] #### VD25H #### [facility] [address] [place] [address] Hemogram w/ Autodiffon 07-28 Erythrocyte distribution width Ratio (RBC) 13.8 % Normal 11.5-14.5 [facility] Comment on above: Performed By: #### H EMDF, PT, BMP3M, PHOS3, MG3, CK3 #### [address] #### VD25H #### [facility] [address] [place] [address] Hematocrit Volume Fraction (Bld) 33.0 % Low 40.0-52.0 [facility] Comment on above: Performed By: #### H EMDF, PT, BMP3M, PHOS3, MG3, CK3 #### [address] #### VD25H #### [facility] [address] [place] [address] Hemoglobin mass conc (Bld) 11.0 g/dL Low 13.0-18.0 [facility] Comment on above: Performed By: #### H EMDF, PT, BMP3M, PHOS3, MG3, CK3 #### [address] #### VD25H #### [facility] [address] [place] [address] MCH Entitic mass (RBC) 28.7 pg Normal 26.0-34.0 [facility] Comment on above: Performed By: #### H EMDF, PT, BMP3M, PHOS3, MG3, CK3 #### [address] #### VD25H #### [facility] [address] [place] [address] MCHC mass conc (RBC) 33.4 % Normal 32.0-36.0 [facility] Comment on above: Performed By: #### H EMDF, PT, BMP3M, PHOS3, MG3, CK3 #### [address] #### VD25H #### [facility] [address] [place] [address] MCV Entitic volume (RBC) 86.0 fL Normal 80.0-98.0 [facility] Comment on above: Performed By: #### H EMDF, PT, BMP3M, PHOS3, MG3, CK3 #### [place] [address] [place] #### VD25H #### [facility] [address] [place] [address] Platelet mean volume Entitic volume (Bld) 8.4 fL Normal 7.4-10.4 [facility] Comment on above: Performed By: #### H EMDF, PT, BMP3M, PHOS3, MG3, CK3 #### [address] [place], [place] #### VD25H #### [facility] [address] [place] [address] Platelets #/vol (Bld) 477 10*3/uL High 140-440 [facility] Comment on above: Performed By: #### H EMDF, PT, BMP3M, PHOS3, MG3, CK3 #### [address] [place] #### VD25H #### [facility] [address] [place] [address] RBC #/vol (Bld) 3.84 10*6/uL Low 4.40-5.[address] [facility] Comment on above: Performed By: #### H EMDF, PT, BMP3M, PHOS3, MG3, CK3 #### [place] [address] [place] #### VD25H #### [facility] [address] [place] [address] WBC #/vol (Bld) 18.1 10*3/uL High 3.6-10.7 [facility] Comment on above: Performed By: #### H EMDF, PT, BMP3M, PHOS3, MG3, CK3 #### [address] #### VD25H #### [facility] [address] [place] [address] Magnesiumon 07-28-2018 Magnesium mass conc 2.4 mg/dL High 1.6-2.3 [facility] Comment on above: Performed By: #### H EMDF, PT, BMP3M, PHOS3, MG3, CK3 #### [facility] [address] [place], [place] #### VD25H #### [facility] [address] [place] [address] Manual Diffon 07-28-2018 Abs Neutrophile Cnt 14.8 10*3/uL High 2.2-8.2 [facility] Comment on above: Performed By: #### H EMDF, PT, BMP3M, PHOS3, MG3, CK3 #### [address] [address] [place], [place] #### VD25H #### [facility] [address] [place] [address] Anisocytosis Ql (Bld) Slight Normal [facility] Comment on above: Performed By: #### H EMDF, PT, BMP3M, PHOS3, MG3, CK3 #### [address] #### VD25H #### [facility] [address] [place] [address] Hypochromia Slight Normal [facility] Comment on above: Performed By: #### H EMDF, PT, BMP3M, PHOS3, MG3, CK3 #### [address] [address] [place], [place] #### VD25H #### [facility] [address] [place] [address] Lymphocytes #/vol (Bld) 1.3 10*3/uL Normal 1.1-4.5 [facility] Comment on above: Performed By: #### H EMDF, PT, BMP3M, PHOS3, MG3, CK3 #### [address] #### VD25H #### [facility] [address] [place] [address] Lymphocytes/100 WBC (Bld) 7 % Low 20-40 [facility] Comment on above: Performed By: #### H EMDF, PT, BMP3M, PHOS3, MG3, CK3 #### [address] [address] [place], [place] #### VD25H #### [facility] [address] [place] [address] Microcytosis Slight Normal [facility] Comment on above: Performed By: #### H EMDF, PT, BMP3M, PHOS3, MG3, CK3 #### [address] [address] [place], [place] #### VD25H #### [facility] [address] [place] [address] Monocytes #/vol (Bld) 2.0 10*3/uL High 0.2-1.1 [facility] Comment on above: Performed By: #### H EMDF, PT, BMP3M, PHOS3, MG3, CK3 #### [address] [address] [place], [place] #### VD25H #### [facility] [address] [place] [address] Monocytes/100 WBC (Bld) 11 % High 2-10 [facility] Comment on above: Performed By: #### H EMDF, PT, BMP3M, PHOS3, MG3, CK3 #### [address] [address] [place], [place] #### VD25H #### [facility] [address] [place] [address] RBC morphology finding Nom (Bld) ABNORMAL Normal [facility] Comment on above: Performed By: #### H EMDF, PT, BMP3M, PHOS3, MG3, CK3 #### [address] #### VD25H #### [facility] [address] [place] [address] Seg Neutrophils 82 % High 40-80 [facility] Comment on above: Performed By: #### H EMDF, PT, BMP3M, PHOS3, MG3, CK3 #### [facility] [address] [place] #### VD25H #### [facility] [address] [place] [address] Abs Baso Cnt 0.0 10*3/uL Normal 0.0-0.2 [facility] Comment on above: Performed By: #### H EMDF, PT, BMP3M, PHOS3, MG3, CK3 #### [address] [address] [address] [place], [place] #### VD25H #### [facility] [address] [place] [address] Bands 0 % Normal 0-3 [facility] Comment on above: Performed By: #### H EMDF, PT, BMP3M, PHOS3, MG3, CK3 #### [address] [address] [place], [place] #### VD25H #### [facility] [address] [place] [address] Basophils/100 WBC (Bld) 0 % Normal 0-2 [facility] Comment on above: Performed By: #### H EMDF, PT, BMP3M, PHOS3, MG3, CK3 #### [address] [address] [place], [place] #### VD25H #### [facility] [address] [place] [address] Cells counted 100 Normal [facility] Comment on above: Performed By: #### H EMDF, PT, BMP3M, PHOS3, MG3, CK3 #### [address] [address] [place], [place] #### VD25H #### [facility] [address] [place] [address] Eosinophils #/vol (Bld) 0.0 10*3/uL Normal 0.0-0.5 [facility] Comment on above: Performed By: #### H EMDF, PT, BMP3M, PHOS3, MG3, CK3 #### [address] #### VD25H #### [facility] [address] [place] [address] Eosinophils/100 WBC (Bld) 0 % Low 1-6 [facility] Comment on above: Performed By: #### H EMDF, PT, BMP3M, PHOS3, MG3, CK3 #### [address] #### VD25H #### [facility] [address] [place] [address] Phosphoruson 07-28-2018 Phosphate mass conc 4.4 mg/dL Normal 2.5-4.5 [facility] Comment on above: Performed By: #### H EMDF, PT, BMP3M, PHOS3, MG3, CK3 #### [address] #### VD25H #### [facility] [address] [place] [address] Vancomycin Troughon 07-29-19 19 Vancomycin Trough 12.9 ug/mL Low 15.0-20.[address] [facility] Comment on above: Result Comment: . Performed By: #### H EMDF, PT, BMP3M, PHOS3, MG3, CK3 #### [address] #### VD25H #### [place] [address] [place] [address] Arterial Blood Gaseson 07-27 CO2 molar conc 28.4 mmol/L High 23.0-27.0 [facility] Comment on above: Performed By: #### H EMDF, PT, BMP3M, PHOS3, MG3, CK3 #### [address] #### VD25H #### [facility] [address] [place] [address] HCO3 molar conc (Bld) 27.2 mmol/L High 21.0-25.0 [facility] Comment on above: Performed By: #### H EMDF, PT, BMP3M, PHOS3, MG3, CK3 #### [facility] [address] [place], [place] #### VD25H #### [facility] [address] [place] [address] Hemoglobin mass conc (Bld) 11.7 g/dL Normal [facility] Comment on above: Performed By: #### H EMDF, PT, BMP3M, PHOS3, MG3, CK3 #### [address] #### VD25H #### [facility] [address] [place] [address] Oxygen ppres (Bld) 91.3 mm[Hg] Normal 80.0-100.0 [facility] Comment on above: Performed By: #### H EMDF, PT, BMP3M, PHOS3, MG3, CK3 #### [address] #### VD25H #### [facility] [address] [place] [address] Oxygen saturation in Blood 96.9 % Normal 95.0-100.0 [facility] Comment on above: Performed By: #### H EMDF, PT, BMP3M, PHOS3, MG3, CK3 #### [address] #### VD25H #### [facility] [address] [place] [address] pCO2 39.0 mm[Hg] Normal 35.0-45.0 [facility] Comment on above: Performed By: #### H EMDF, PT, BMP3M, PHOS3, MG3, CK3 #### [address] #### VD25H #### [facility] [address] [place] [address] pH (Bld) 7.461 High 7.350-7.450 [facility] Comment on above: Performed By: #### H EMDF, PT, BMP3M, PHOS3, MG3, CK3 #### [address] [address] [place], [place] #### VD25H #### [facility] [address] [place] [address] Std Base Excess 3.2 mmol/L High -3.0-3.0 [facility] Comment on above: Performed By: #### H EMDF, PT, BMP3M, PHOS3, MG3, CK3 #### [address] [address] [place], [place] #### VD25H #### [facility] [address] [place] [address] FIO2 No data Normal [facility] Comment on above: Performed By: #### H EMDF, PT, BMP3M, PHOS3, MG3, CK3 #### [address] [address] [place], [place] #### VD25H #### [facility] [address] [place] [address] Basic Metabolic Panelon -2 Anion gap molar conc 12 Normal [facility] Comment on above: Performed By: #### H EMDF, PT, BMP3M, PHOS3, MG3, CK3 #### [address] [address] [place], [place] #### VD25H #### [facility] [address] [place] [address] Calcium mass conc 8.3 mg/dL Low 8.4-10.[address] [facility] Comment on above: Performed By: #### H EMDF, PT, BMP3M, PHOS3, MG3, CK3 #### [place] [address] [address] [address] [facility] [place] #### VD25H #### [facility] [address] [place] [address] CO2 molar conc 28 mmol/L Normal 22-30 [facility] Comment on above: Performed By: #### H EMDF, PT, BMP3M, PHOS3, MG3, CK3 #### [address] [address] [place], [place] #### VD25H #### [facility] [address] [place] [address] Glucose mass conc 156 mg/dL High 70-[address] [facility] Comment on above: Performed By: #### H EMDF, PT, BMP3M, PHOS3, MG3, CK3 #### [address] [place], [place] #### VD25H #### [facility] [address] [place] [address] Urea nitrogen mass conc 21 mg/dL High 7-20 [facility] Comment on above: Performed By: #### H EMDF, PT, BMP3M, PHOS3, MG3, CK3 #### [address] #### VD25H #### [facility] [address] [place] [address] Creatinine mass conc 0.53 mg/dL Normal 0.52-1.25 [facility] Comment on above: Performed By: #### H EMDF, PT, BMP3M, PHOS3, MG3, CK3 #### [address] #### VD25H #### [facility] [address] [place] [address] GFR/1.73 sq M predicted among blacks MDRD vol rate/area (S/P/Bld) mL/min/{1.73_m2} Normal >60 [facility] Comment on above: Performed By: #### H EMDF, PT, BMP3M, PHOS3, MG3, CK3 #### [address] #### VD25H #### [facility] [address] [place] [address] GFR/1.73 sq M predicted among non-blacks MDRD vol rate/area (S/P/Bld) mL/min/{1.73_m2} Normal >[address] [facility] Comment on above: Result Comment: Sour ce- MDRD equation with creatinine calibration to IDMS(NKDEP) eGFR not recommended for drug dose adjustment Performed By: #### H EMDF, PT, BMP3M, PHOS3, MG3, CK3 #### [facility] [address] [place] [address] #### VD25H #### [facility] [address] [place] [address] Potassium molar conc 3.2 mmol/L Low 3.5-5.1 [facility] Comment on above: Performed By: #### H EMDF, PT, BMP3M, PHOS3, MG3, CK3 #### [address] [address] [place], [place] #### VD25H #### [facility] [address] [place] [address] Chloride molar conc 99 mmol/L Normal 98-107 [facility] Comment on above: Performed By: #### H EMDF, PT, BMP3M, PHOS3, MG3, CK3 #### [facility] [address] [place] #### VD25H #### [facility] [address] [place] [address] Sodium molar conc 139 mmol/L Normal 135-145 [facility] Comment on above: Performed By: #### H EMDF, PT, BMP3M, PHOS3, MG3, CK3 #### [address] [address] [place], [place] #### VD25H #### [facility] [address] [place] [address] CR Chest Portableon 07-28-19 19 CR Chest Portable Patient Name: KATHYA HOOPER Diagnostic Radiology Exam Date/Time 07/27/2018 07:08:59 EDT Exam CR Chest Portable Ordering Physician MARIA EUGENIA PEREZ Accession Number [id number] CPT4 Codes 85776 () Reason For Exam ETT placement Report [...] Transcribed Date and Time: 07/27/2018 8:02 Normal [facility] [employer] Glucose,Bedsideon 07-27-2018 Glucose mass conc 151 mg/dL High 70-100 [facility] Comment on above: Result Comment: Test performed by glucose meter. Results may be 10%-15% lower than serum/plasma values. (CLIA ID [id number]) Performed By: #### H EMDF, PT, BMP3M, PHOS3, MG3, CK3 #### [employer] [address] [place] [address] #### VD25H #### [employer] [address] [place] [address] Glucose mass conc 131 mg/dL High 70-100 [facility] [employer] [facility] Comment on above: Result Comment: Test performed by glucose meter. Results may be 10%-15% lower than serum/plasma values. (CLIA ID [id number]) Performed By: #### H EMDF, PT, BMP3M, PHOS3, MG3, CK3 #### [employer] [address] [place] [address] #### VD25H #### [employer] [address] [place] [address] Glucose mass conc 123 mg/dL High 70-100 [facility] [employer] [facility] Comment on above: Result Comment: Test performed by glucose meter. Results may be 10%-15% lower than serum/plasma values. (CLIA ID [id number]) Performed By: #### H EMDF, PT, BMP3M, PHOS3, MG3, CK3 #### [address] #### VD25H #### [facility] [address] [place] [address] Glucose mass conc 133 mg/dL High 70-[address] [facility] Comment on above: Result Comment: Test performed by glucose meter. Results may be 10%-15% lower than serum/plasma values. (CLIA ID [id number]) Performed By: #### H EMDF, PT, BMP3M, PHOS3, MG3, CK3 #### [address] #### VD25H #### [facility] [address] [place] [address] Hemogram w/ Autodiffon 07-27 Erythrocyte distribution width Ratio (RBC) 13.5 % Normal 11.5-14.5 [facility] Comment on above: Performed By: #### H EMDF, PT, BMP3M, PHOS3, MG3, CK3 #### [address] #### VD25H #### [facility] [address] [place] [address] Hematocrit Volume Fraction (Bld) 32.5 % Low 40.0-52.0 [facility] Comment on above: Performed By: #### H EMDF, PT, BMP3M, PHOS3, MG3, CK3 #### [address] #### VD25H #### [facility] [address] [place] [address] Hemoglobin mass conc (Bld) 11.1 g/dL Low 13.0-18.0 [facility] Comment on above: Performed By: #### H EMDF, PT, BMP3M, PHOS3, MG3, CK3 #### [address] [address] [place], [place] #### VD25H #### [facility] [address] [place] [address] MCH Entitic mass (RBC) 29.2 pg Normal 26.0-34.0 [facility] Comment on above: Performed By: #### H EMDF, PT, BMP3M, PHOS3, MG3, CK3 #### [address] [address] [place] #### VD25H #### [facility] [address] [place] [address] MCHC mass conc (RBC) 34.1 % Normal 32.0-36.0 [facility] Comment on above: Performed By: #### H EMDF, PT, BMP3M, PHOS3, MG3, CK3 #### [address] #### VD25H #### [facility] [address] [place] [address] MCV Entitic volume (RBC) 85.7 fL Normal 80.0-98.0 [facility] Comment on above: Performed By: #### H EMDF, PT, BMP3M, PHOS3, MG3, CK3 #### [address] #### VD25H #### [facility] [address] [place] [address] Platelet mean volume Entitic volume (Bld) 7.9 fL Normal 7.4-10.4 [facility] Comment on above: Performed By: #### H EMDF, PT, BMP3M, PHOS3, MG3, CK3 #### [address] #### VD25H #### [facility] [address] [facility] [place] [address] Platelets #/vol (Bld) 466 10*3/uL High 140-440 [facility] Comment on above: Performed By: #### H EMDF, PT, BMP3M, PHOS3, MG3, CK3 #### [address] #### VD25H #### [facility] [address] [place] [address] RBC #/vol (Bld) 3.79 10*6/uL Low 4.40-5.[address] [facility] Comment on above: Performed By: #### H EMDF, PT, BMP3M, PHOS3, MG3, CK3 #### [address] #### VD25H #### [facility] [address] [place] [address] WBC #/vol (Bld) 18.7 10*3/uL High 3.6-10.[address] [facility] Comment on above: Performed By: #### H EMDF, PT, BMP3M, PHOS3, MG3, CK3 #### [address] #### VD25H #### [facility] [address] [place] [place] [address] Magnesiumon 07-27-2018 Magnesium mass conc 2.1 mg/dL Normal 1.6-2.3 [facility] Comment on above: Performed By: #### H EMDF, PT, BMP3M, PHOS3, MG3, CK3 #### [address] #### VD25H #### [facility] [address] [place] [place] [address] Manual Diffon 07-27-2018 RBC morphology finding Nom (Bld) Normal Normal [facility] Comment on above: Performed By: #### H EMDF, PT, BMP3M, PHOS3, MG3, CK3 #### [address] #### VD25H #### [place] [address] [place] [address] Abs Neutrophile Cnt 14.2 10*3/uL High 2.2-8.2 [facility] Comment on above: Performed By: #### H EMDF, PT, BMP3M, PHOS3, MG3, CK3 #### [facility] [address] [place] #### VD25H #### [facility] [address] [place] [address] Atypical Lymphocytes 2 % Abnormal <1 [facility] Comment on above: Performed By: #### H EMDF, PT, BMP3M, PHOS3, MG3, CK3 #### [address] [address] [place] #### VD25H #### [facility] [address] [place] [address] Bands 5 % High 0-3 [facility] Comment on above: Performed By: #### H EMDF, PT, BMP3M, PHOS3, MG3, CK3 #### [facility] [address] [place] #### VD25H #### [facility] [address] [place] [address] Eosinophils #/vol (Bld) 0.6 10*3/uL High 0.0-0.5 [facility] Comment on above: Performed By: #### H EMDF, PT, BMP3M, PHOS3, MG3, CK3 #### [address] [address] [place], [place] #### VD25H #### [facility] [address] [place] [address] Eosinophils/100 WBC (Bld) 3 % Normal 1-6 [facility] Comment on above: Performed By: #### H EMDF, PT, BMP3M, PHOS3, MG3, CK3 #### [address] [place], [place] #### VD25H #### [facility] [address] [place] [address] Lymphocytes #/vol (Bld) 2.1 10*3/uL Normal 1.1-4.5 [facility] Comment on above: Performed By: #### H EMDF, PT, BMP3M, PHOS3, MG3, CK3 #### [facility] [address] [place] #### VD25H #### [facility] [address] [place] [address] Lymphocytes/100 WBC (Bld) 11 % Low 20-40 [facility] Comment on above: Performed By: #### H EMDF, PT, BMP3M, PHOS3, MG3, CK3 #### [place] [address] [place], [place] #### VD25H #### [facility] [address] [place] [address] Monocytes #/vol (Bld) 1.5 10*3/uL High 0.2-1.1 [facility] Comment on above: Performed By: #### H EMDF, PT, BMP3M, PHOS3, MG3, CK3 #### [facility] [address] [place] #### VD25H #### [facility] [address] [place] [address] Monocytes/100 WBC (Bld) 8 % Normal 2-10 [facility] Comment on above: Performed By: #### H EMDF, PT, BMP3M, PHOS3, MG3, CK3 #### [place] [address] [address] [place] #### VD25H #### [facility] [address] [place] [address] NRBC 1 /100{WBCs} High -1-0 [facility] Comment on above: Result Comment: Newb orn (<60 days) 1-10 Adult <1 Performed By: #### H EMDF, PT, BMP3M, PHOS3, MG3, CK3 #### [place] [address] [place] #### VD25H #### [facility] [address] [place] [address] Seg Neutrophils 71 % Normal 40-80 [facility] Comment on above: Performed By: #### H EMDF, PT, BMP3M, PHOS3, MG3, CK3 #### [facility] [address] [place] #### VD25H #### [facility] [address] [place] [address] Abs Baso Cnt 0.0 10*3/uL Normal 0.0-0.2 [facility] Comment on above: Performed By: #### H EMDF, PT, BMP3M, PHOS3, MG3, CK3 #### [place] [address] [place] #### VD25H #### [facility] [address] [place] [address] Basophils/100 WBC (Bld) 0 % Normal 0-2 [facility] Comment on above: Performed By: #### H EMDF, PT, BMP3M, PHOS3, MG3, CK3 #### [address] [place] #### VD25H #### [facility] [address] [place] [address] Cells counted 100 Normal [facility] Comment on above: Performed By: #### H EMDF, PT, BMP3M, PHOS3, MG3, CK3 #### [address] #### VD25H #### [facility] [address] [place] [address] Phosphoruson 07-27-2018 Phosphate mass conc 3.0 mg/dL Normal 2.5-4.5 [facility] Comment on above: Performed By: #### H EMDF, PT, BMP3M, PHOS3, MG3, CK3 #### [place] [address] [place] #### VD25H #### [facility] [address] [place] [address] VL Venous Duplex US Lower Ex t Bilateralon 07-27-2018 VL Venous Duplex US Lower Ext Bilateral Patient Name: KATHYA HOOPER Ultrasound Exam Date/Time 07/27/2018 10:56:18 EDT Exam VL Venous Duplex US Lower Ext Bilateral Ordering Physician ETIENNE MARTÍNEZ JULIE Accession Number [id number] CPT4 Codes 52103 () Reason For Exam edema Report [facility] --- Lower Extremity Venous Duplex Report Patient Name: Kathya Hooper : 1955 Study Date: 07/27/2018 W (63yrs) Age: 63 Account: [id number] Gender: M Loc: [id number] BP: Ordering: Yesenia Martínez Technologist: Ordering Physician: Yesenia Martínez Willow Worker: Mary Man Lissette Interpreting Physician: Ricardo Hall MD --- Location: [facility] --- INDICATIONS: Bilateral leg edema. --- [...] performed. The images were obtained using a In Ovo E9 vascular ultrasound machine. The study was [...] --+ Electronically signed by: Ricardo Hall MD [id number] Final Dictated: 07/27/2018 12:55 pm Dictating Physician: RICARDO HALL Signed Date and Time: 07/27/2018 12:55 pm Signed by: RICARDO HALL Normal [facility] Basic Metabolic Panelon 06-30 Calcium mass conc 7.9 mg/dL Low 8.4-10.[address] [facility] Comment on above: Performed By: #### H EMDF, PT, BMP3M, PHOS3, MG3, CK3 #### [place] [address] [place], [place] #### VD25H #### [facility] [address] [place] [address] Anion gap molar conc 9 Normal [facility] Comment on above: Performed By: #### H EMDF, PT, BMP3M, PHOS3, MG3, CK3 #### [facility] [address] [facility] [place] #### VD25H #### [facility] [address] [place] [address] CO2 molar conc 24 mmol/L Normal 22-30 [facility] Comment on above: Performed By: #### H EMDF, PT, BMP3M, PHOS3, MG3, CK3 #### [facility] [address] [facility] [place] #### VD25H #### [facility] [address] [place] [address] Creatinine mass conc 0.54 mg/dL Normal 0.52-1.25 [facility] Comment on above: Performed By: #### H EMDF, PT, BMP3M, PHOS3, MG3, CK3 #### [place] [address] [address] [facility] [place] #### VD25H #### [facility] [address] [place] [address] GFR/1.73 sq M predicted among blacks MDRD vol rate/area (S/P/Bld) mL/min/{1.73_m2} Normal >60 [facility] Comment on above: Performed By: #### H EMDF, PT, BMP3M, PHOS3, MG3, CK3 #### [facility] [address] [place] #### VD25H #### [facility] [address] [place] [address] GFR/1.73 sq M predicted among non-blacks MDRD vol rate/area (S/P/Bld) mL/min/{1.73_m2} Normal >60 [facility] Comment on above: Result Comment: Sour ce- MDRD equation with creatinine calibration to IDMS(NKDEP) eGFR not recommended for drug dose adjustment Performed By: #### H EMDF, PT, BMP3M, PHOS3, MG3, CK3 #### [address] #### VD25H #### [facility] [address] [place] [address] Glucose mass conc 166 mg/dL High 70-100 [facility] Comment on above: Performed By: #### H EMDF, PT, BMP3M, PHOS3, MG3, CK3 #### [address] #### VD25H #### [facility] [address] [place] [address] Urea nitrogen mass conc 21 mg/dL High 7-20 [facility] Comment on above: Performed By: #### H EMDF, PT, BMP3M, PHOS3, MG3, CK3 #### [address] #### VD25H #### [facility] [address] [place] [address] Chloride molar conc 107 mmol/L Normal 98-107 [facility] Comment on above: Performed By: #### H EMDF, PT, BMP3M, PHOS3, MG3, CK3 #### [address] #### VD25H #### [facility] [address] [place] [address] Potassium molar conc 3.7 mmol/L Normal 3.5-5.1 [facility] Comment on above: Performed By: #### H EMDF, PT, BMP3M, PHOS3, MG3, CK3 #### [facility] [address] [facility] [place] #### VD25H #### [facility] [address] [place] [address] Sodium molar conc 140 mmol/L Normal 135-[address] [facility] Comment on above: Performed By: #### H EMDF, PT, BMP3M, PHOS3, MG3, CK3 #### [facility] [address] [facility] #### VD25H #### [facility] [address] [place] [address] CR Chest Portableon 07-27-19 19 CR Chest Portable Patient Name: KATHYA HOOPER Diagnostic Radiology Exam Date/Time 07/26/2018 06:06:25 EDT Exam CR Chest Portable Ordering Physician MARIA EUGENIA PEREZ Accession Number [id number] CPT4 Codes 02318 () Reason For Exam ETT placement Report [...] Date and Time: 07/26/2018 9:15 Normal [facility] [employer] [facility] Glucose,Bedsideon 07-26-2018 Glucose mass conc 160 mg/dL High 70-100 [facility] Comment on above: Result Comment: Test performed by glucose meter. Results may be 10%-15% lower than serum/plasma values. (CLIA ID [id number]) Performed By: #### H EMDF, PT, BMP3M, PHOS3, MG3, CK3 #### [employer] [address] [place] [address] #### VD25H #### [employer] [address] [place] [address] Glucose mass conc 166 mg/dL High 70-100 [facility] Comment on above: Result Comment: Test performed by glucose meter. Results may be 10%-15% lower than serum/plasma values. (CLIA ID [id number]) Performed By: #### H EMDF, PT, BMP3M, PHOS3, MG3, CK3 #### [employer] [facility] [address] [place] [address] #### VD25H #### [employer] [address] [place] [address] Glucose mass conc 183 mg/dL High 70-100 [facility] Comment on above: Result Comment: Test performed by glucose meter. Results may be 10%-15% lower than serum/plasma values. (CLIA ID [id number]) Performed By: #### H EMDF, PT, BMP3M, PHOS3, MG3, CK3 #### [employer] [facility] [address] [place] [address] #### VD25H #### [employer] [address] [place] [address] Glucose mass conc 151 mg/dL High 70-100 [facility] Comment on above: Result Comment: Test performed by glucose meter. Results may be 10%-15% lower than serum/plasma values. (CLIA ID [id number]) Performed By: #### H EMDF, PT, BMP3M, PHOS3, MG3, CK3 #### [facility] [address] [place] #### VD25H #### [facility] [address] [place] [address] Hemogram w/ Autodiffon 07-26 Erythrocyte distribution width Ratio (RBC) 13.7 % Normal 11.5-14.5 [facility] Comment on above: Performed By: #### H EMDF, PT, BMP3M, PHOS3, MG3, CK3 #### [address] [place], [place] #### VD25H #### [facility] [address] [place] [address] Hematocrit Volume Fraction (Bld) 31.1 % Low 40.0-52.0 [facility] Comment on above: Performed By: #### H EMDF, PT, BMP3M, PHOS3, MG3, CK3 #### [address] #### VD25H #### [facility] [address] [place] [address] Hemoglobin mass conc (Bld) 10.6 g/dL Low 13.0-18.0 [facility] Comment on above: Performed By: #### H EMDF, PT, BMP3M, PHOS3, MG3, CK3 #### [address] #### VD25H #### [facility] [address] [place] [address] MCH Entitic mass (RBC) 29.2 pg Normal 26.0-34.0 [facility] Comment on above: Performed By: #### H EMDF, PT, BMP3M, PHOS3, MG3, CK3 #### [address] #### VD25H #### [facility] [address] [place] [address] MCHC mass conc (RBC) 34.0 % Normal 32.0-36.0 [facility] Comment on above: Performed By: #### H EMDF, PT, BMP3M, PHOS3, MG3, CK3 #### [address] [place] #### VD25H #### [facility] [address] [place] [address] MCV Entitic volume (RBC) 86.1 fL Normal 80.0-98.0 [facility] Comment on above: Performed By: #### H EMDF, PT, BMP3M, PHOS3, MG3, CK3 #### [address] #### VD25H #### [facility] [address] [place] [address] Platelet mean volume Entitic volume (Bld) 8.3 fL Normal 7.4-10.4 [facility] Comment on above: Performed By: #### H EMDF, PT, BMP3M, PHOS3, MG3, CK3 #### [place] [address] [address] [place] #### VD25H #### [facility] [address] [place] [address] Platelets #/vol (Bld) 364 10*3/uL Normal 140-440 [facility] Comment on above: Performed By: #### H EMDF, PT, BMP3M, PHOS3, MG3, CK3 #### [address] #### VD25H #### [facility] [address] [place] [address] RBC #/vol (Bld) 3.62 10*6/uL Low 4.40-5.[address] [facility] Comment on above: Performed By: #### H EMDF, PT, BMP3M, PHOS3, MG3, CK3 #### [address] #### VD25H #### [facility] [address] [place] [address] WBC #/vol (Bld) 15.2 10*3/uL High 3.6-10.7 [facility] Comment on above: Performed By: #### H EMDF, PT, BMP3M, PHOS3, MG3, CK3 #### [place] [address] [place] #### VD25H #### [facility] [address] [place] [address] Magnesiumon 07-26-2018 Magnesium mass conc 2.0 mg/dL Normal 1.6-2.3 [facility] Comment on above: Performed By: #### H EMDF, PT, BMP3M, PHOS3, MG3, CK3 #### [address] #### VD25H #### [place] [address] [place] [address] Manual Diffon 07-26-2018 Abs Neutrophile Cnt 12.8 10*3/uL High 2.2-8.2 [facility] Comment on above: Performed By: #### H EMDF, PT, BMP3M, PHOS3, MG3, CK3 #### [address] #### VD25H #### [facility] [address] [place] [address] Lymphocytes #/vol (Bld) 1.4 10*3/uL Normal 1.1-4.5 [facility] Comment on above: Performed By: #### H EMDF, PT, BMP3M, PHOS3, MG3, CK3 #### [address] [place] #### VD25H #### [facility] [address] [place] [address] Lymphocytes/100 WBC (Bld) 9 % Low 20-40 [facility] Comment on above: Performed By: #### H EMDF, PT, BMP3M, PHOS3, MG3, CK3 #### [address] #### VD25H #### [facility] [address] [place] [address] Monocytes #/vol (Bld) 1.1 10*3/uL Normal 0.2-1.1 [facility] Comment on above: Performed By: #### H EMDF, PT, BMP3M, PHOS3, MG3, CK3 #### [place] [address] [place] #### VD25H #### [facility] [address] [place] [address] Monocytes/100 WBC (Bld) 7 % Normal 2-10 [facility] Comment on above: Performed By: #### H EMDF, PT, BMP3M, PHOS3, MG3, CK3 #### [place] [address] [place] #### VD25H #### [place] [address] [place] [address] RBC morphology finding Nom (Bld) Normal Normal [facility] Comment on above: Performed By: #### H EMDF, PT, BMP3M, PHOS3, MG3, CK3 #### [address] [place] #### VD25H #### [place] [address] [place] [address] Seg Neutrophils 84 % High 40-80 [facility] Comment on above: Performed By: #### H EMDF, PT, BMP3M, PHOS3, MG3, CK3 #### [place] [address] [place] #### VD25H #### [place] [address] [place] [address] Abs Baso Cnt 0.0 10*3/uL Normal 0.0-0.2 [facility] Comment on above: Performed By: #### H EMDF, PT, BMP3M, PHOS3, MG3, CK3 #### [place] [address] [place] #### VD25H #### [facility] [address] [place] [address] Bands 0 % Normal 0-3 [facility] Comment on above: Performed By: #### H EMDF, PT, BMP3M, PHOS3, MG3, CK3 #### [place] [address] [place] #### VD25H #### [facility] [address] [place] [address] Basophils/100 WBC (Bld) 0 % Normal 0-2 [facility] Comment on above: Performed By: #### H EMDF, PT, BMP3M, PHOS3, MG3, CK3 #### [address] [address] [place], [place] #### VD25H #### [facility] [address] [place] [address] Cells counted 100 Normal [facility] Comment on above: Performed By: #### H EMDF, PT, BMP3M, PHOS3, MG3, CK3 #### [place] [address] [place] #### VD25H #### [facility] [address] [place] [address] Eosinophils #/vol (Bld) 0.0 10*3/uL Normal 0.0-0.5 [facility] Comment on above: Performed By: #### H EMDF, PT, BMP3M, PHOS3, MG3, CK3 #### [place] [address] [place] #### VD25H #### [facility] [address] [place] [address] Eosinophils/100 WBC (Bld) 0 % Low 1-6 [facility] Comment on above: Performed By: #### H EMDF, PT, BMP3M, PHOS3, MG3, CK3 #### [address] [place] #### VD25H #### [facility] [address] [place] [address] Phosphoruson 07-26-2018 Phosphate mass conc 3.1 mg/dL Normal 2.5-4.5 [facility] Comment on above: Performed By: #### H EMDF, PT, BMP3M, PHOS3, MG3, CK3 #### [address] #### VD25H #### [facility] [address] [place] [address] Vancomycin Troughon 07-27-19 19 Vancomycin Trough 8.9 ug/mL Low 15.0-20.0 [facility] Comment on above: Result Comment: . Performed By: #### H EMDF, PT, BMP3M, PHOS3, MG3, CK3 #### [address] #### VD25H #### [place] [address] [place] [address] Arterial Blood Gaseson 07-25 CO2 molar conc 22.0 mmol/L Low 23.0-27.0 [facility] Comment on above: Performed By: #### H EMDF, PT, BMP3M, PHOS3, MG3, CK3 #### [address] #### VD25H #### [place] [address] [place] [address] HCO3 molar conc (Bld) 21.1 mmol/L Normal 21.0-25.0 [facility] Comment on above: Performed By: #### H EMDF, PT, BMP3M, PHOS3, MG3, CK3 #### [address] #### VD25H #### [facility] [address] [place] [address] Hemoglobin mass conc (Bld) 10.1 g/dL Normal ScreenOnly [facility] Comment on above: Performed By: #### H EMDF, PT, BMP3M, PHOS3, MG3, CK3 #### [address] #### VD25H #### [place] [address] [place] [address] Oxygen ppres (Bld) 88.3 mm[Hg] Normal 80.0-100.0 [facility] Comment on above: Performed By: #### H EMDF, PT, BMP3M, PHOS3, MG3, CK3 #### [facility] [address] [facility] #### VD25H #### [facility] [address] [place] [address] Oxygen saturation in Blood 96.8 % Normal 95.0-100.0 [facility] Comment on above: Performed By: #### H EMDF, PT, BMP3M, PHOS3, MG3, CK3 #### [place] [address] [facility] #### VD25H #### [facility] [address] [place] [address] pCO2 29.9 mm[Hg] Low 35.0-45.0 [facility] Comment on above: Performed By: #### H EMDF, PT, BMP3M, PHOS3, MG3, CK3 #### [place] [address] [facility] [place] #### VD25H #### [facility] [address] [place] [address] pH (Bld) 7.467 High 7.350-7.450 [facility] Comment on above: Performed By: #### H EMDF, PT, BMP3M, PHOS3, MG3, CK3 #### [place] [address] [facility] [place] #### VD25H #### [facility] [address] [place] [address] Std Base Excess -1.9 mmol/L Normal -3.0-3.0 [facility] Comment on above: Performed By: #### H EMDF, PT, BMP3M, PHOS3, MG3, CK3 #### [place] [address] [place] #### VD25H #### [facility] [address] [place] [address] FIO2 .30 Normal [facility] Comment on above: Performed By: #### H EMDF, PT, BMP3M, PHOS3, MG3, CK3 #### [facility] [address] [place] [address] #### VD25H #### [facility] [address] [place] [address] Basic Metabolic Panelon 03-2 Calcium mass conc 8.1 mg/dL Low 8.4-10.4 [facility] Comment on above: Performed By: #### H EMDF, PT, BMP3M, PHOS3, MG3, CK3 #### [place] [address] [place], [place] #### VD25H #### [facility] [address] [place] [address] Anion gap molar conc 8 Normal [facility] Comment on above: Performed By: #### H EMDF, PT, BMP3M, PHOS3, MG3, CK3 #### [address] #### VD25H #### [facility] [address] [place] [address] CO2 molar conc 24 mmol/L Normal 22-30 [facility] Comment on above: Performed By: #### H EMDF, PT, BMP3M, PHOS3, MG3, CK3 #### [place] [address] [place] #### VD25H #### [facility] [address] [place] [address] Creatinine mass conc 0.55 mg/dL Normal 0.52-1.25 [facility] Comment on above: Performed By: #### H EMDF, PT, BMP3M, PHOS3, MG3, CK3 #### [place] [address] [place], [place] #### VD25H #### [facility] [address] [place] [address] GFR/1.73 sq M predicted among blacks MDRD vol rate/area (S/P/Bld) mL/min/{1.73_m2} Normal >60 [facility] Comment on above: Performed By: #### H EMDF, PT, BMP3M, PHOS3, MG3, CK3 #### [facility] [address] [place] #### VD25H #### [facility] [address] [place] [address] GFR/1.73 sq M predicted among non-blacks MDRD vol rate/area (S/P/Bld) mL/min/{1.73_m2} Normal >[address] [facility] Comment on above: Result Comment: Sour ce- MDRD equation with creatinine calibration to IDMS(NKDEP) eGFR not recommended for drug dose adjustment Performed By: #### H EMDF, PT, BMP3M, PHOS3, MG3, CK3 #### [address] #### VD25H #### [facility] [address] [place] [address] Glucose mass conc 184 mg/dL High 70-[address] [facility] Comment on above: Performed By: #### H EMDF, PT, BMP3M, PHOS3, MG3, CK3 #### [address] #### VD25H #### [facility] [address] [place] [address] Urea nitrogen mass conc 20 mg/dL Normal 7-20 [facility] Comment on above: Performed By: #### H EMDF, PT, BMP3M, PHOS3, MG3, CK3 #### [address] #### VD25H #### [facility] [address] [place] [address] Chloride molar conc 109 mmol/L High 98-107 [facility] Comment on above: Performed By: #### H EMDF, PT, BMP3M, PHOS3, MG3, CK3 #### [facility] [address] [place] [address] #### VD25H #### [facility] [address] [place] [address] Potassium molar conc 4.0 mmol/L Normal 3.5-5.1 [facility] Comment on above: Performed By: #### H EMDF, PT, BMP3M, PHOS3, MG3, CK3 #### [facility] [address] [place] [address] #### VD25H #### [facility] [address] [place] [address] Sodium molar conc 141 mmol/L Normal 135-[address] [facility] Comment on above: Performed By: #### H EMDF, PT, BMP3M, PHOS3, MG3, CK3 #### [facility] [address] [place] [address] #### VD25H #### [facility] [address] [place] [address] CR Chest Portableon 07-26-19 19 CR Chest Portable Patient Name: KATHYA HOOPER Diagnostic Radiology Exam Date/Time 07/25/2018 06:39:42 EDT Exam CR Chest Portable Ordering Physician MARIA EUGENIA PEREZ Accession Number [id number] CPT4 Codes 75438 () Reason For Exam ETT placement Report [...] Transcribed Date and Time: 07/25/2018 7:45 Normal [facility] CULTURE URINEon 07-25-2018 CULTURE URINE 1 Organism [...] 4 S Trimeth/Sulfa(CHRISTI) <= 20 S Normal [facility] Comment on above: Order Comment: Speci men Source Comment:Urine, clean catch Performed By: #### H EMDF, PT, BMP3M, PHOS3, MG3, CK3 #### [facility] [address] [place] [address] #### VD25H #### [facility] [employer] [address] [place] [address] Glucose,Bedsideon 07-25-2018 Glucose mass conc 140 mg/dL High 70-100 [facility] Comment on above: Result Comment: Test performed by glucose meter. Results may be 10%-15% lower than serum/plasma values. (CLIA ID [id number]) Performed By: #### H EMDF, PT, BMP3M, PHOS3, MG3, CK3 #### [employer] [facility] [address] [place], [place] #### VD25H #### [employer] [facility] [address] [place] [address] Glucose mass conc 158 mg/dL High 70-100 [facility] Comment on above: Result Comment: Test performed by glucose meter. Results may be 10%-15% lower than serum/plasma values. (CLIA ID [id number]) Performed By: #### H EMDF, PT, BMP3M, PHOS3, MG3, CK3 #### [employer] [address] [place] [address] #### VD25H #### [facility] [address] [place] [address] Glucose mass conc 172 mg/dL High 70-100 [facility] Comment on above: Result Comment: Test performed by glucose meter. Results may be 10%-15% lower than serum/plasma values. (CLIA ID [id number]) Performed By: #### H EMDF, PT, BMP3M, PHOS3, MG3, CK3 #### [employer] [facility] [address] [place] [address] #### VD25H #### [employer] [address] [place] [address] Glucose mass conc 169 mg/dL High 70-100 [facility] Comment on above: Result Comment: Test performed by glucose meter. Results may be 10%-15% lower than serum/plasma values. (CLIA ID [id number]) Performed By: #### H EMDF, PT, BMP3M, PHOS3, MG3, CK3 #### [employer] [address] [place] [address] #### VD25H #### [facility] [address] [place] [address] Glucose mass conc 165 mg/dL High 70-100 [facility] Comment on above: Result Comment: Test performed by glucose meter. Results may be 10%-15% lower than serum/plasma values. (CLIA ID [id number]) Performed By: #### H EMDF, PT, BMP3M, PHOS3, MG3, CK3 #### [address] #### VD25H #### [place] [address] [place] [address] Hemogram w/ Autodiffon 07-25 Erythrocyte distribution width Ratio (RBC) 13.6 % Normal 11.5-14.5 [facility] Comment on above: Performed By: #### H EMDF, PT, BMP3M, PHOS3, MG3, CK3 #### [address] #### VD25H #### [address] [place] [address] Hematocrit Volume Fraction (Bld) 31.3 % Low 40.0-52.0 [facility] Comment on above: Performed By: #### H EMDF, PT, BMP3M, PHOS3, MG3, CK3 #### [address] #### VD25H #### [address] [place] [address] Hemoglobin mass conc (Bld) 10.6 g/dL Low 13.0-18.0 [facility] Comment on above: Performed By: #### H EMDF, PT, BMP3M, PHOS3, MG3, CK3 #### [address] #### VD25H #### [place] [address] [place] [address] MCH Entitic mass (RBC) 29.4 pg Normal 26.0-34.0 [facility] Comment on above: Performed By: #### H EMDF, PT, BMP3M, PHOS3, MG3, CK3 #### [address] #### VD25H #### [facility] [address] [place] [address] MCHC mass conc (RBC) 33.8 % Normal 32.0-36.0 [facility] Comment on above: Performed By: #### H EMDF, PT, BMP3M, PHOS3, MG3, CK3 #### [address] #### VD25H #### [facility] [address] [place] [address] MCV Entitic volume (RBC) 86.9 fL Normal 80.0-98.0 [facility] Comment on above: Performed By: #### H EMDF, PT, BMP3M, PHOS3, MG3, CK3 #### [address] #### VD25H #### [facility] [address] [place] [address] Platelet mean volume Entitic volume (Bld) 8.3 fL Normal 7.4-10.4 [facility] Comment on above: Performed By: #### H EMDF, PT, BMP3M, PHOS3, MG3, CK3 #### [address] #### VD25H #### [facility] [address] [place] [address] Platelets #/vol (Bld) 360 10*3/uL Normal 140-440 [facility] Comment on above: Performed By: #### H EMDF, PT, BMP3M, PHOS3, MG3, CK3 #### [address] #### VD25H #### [facility] [address] [place] [address] RBC #/vol (Bld) 3.61 10*6/uL Low 4.40-5.[address] [facility] Comment on above: Performed By: #### H EMDF, PT, BMP3M, PHOS3, MG3, CK3 #### [facility] [address] [place] #### VD25H #### [facility] [address] [place] [address] WBC #/vol (Bld) 14.7 10*3/uL High 3.6-10.[address] [facility] Comment on above: Performed By: #### H EMDF, PT, BMP3M, PHOS3, MG3, CK3 #### [place] [address] [place], [place] #### VD25H #### [facility] [address] [place] [address] Magnesiumon 07-25-2018 Magnesium mass conc 2.1 mg/dL Normal 1.6-2.3 [facility] Comment on above: Performed By: #### H EMDF, PT, BMP3M, PHOS3, MG3, CK3 #### [place] [address] [place] #### VD25H #### [facility] [address] [place] [address] Manual Diffon 07-25-2018 Abs Baso Cnt 0.1 10*3/uL Normal 0.0-0.2 [facility] Comment on above: Performed By: #### H EMDF, PT, BMP3M, PHOS3, MG3, CK3 #### [place] [address] [place] #### VD25H #### [facility] [address] [place] [address] Abs Neutrophile Cnt 12.9 10*3/uL High 2.2-8.2 [facility] Comment on above: Performed By: #### H EMDF, PT, BMP3M, PHOS3, MG3, CK3 #### [address] #### VD25H #### [facility] [address] [place] [address] Anisocytosis Ql (Bld) Slight Normal [facility] Comment on above: Performed By: #### H EMDF, PT, BMP3M, PHOS3, MG3, CK3 #### [facility] [address] [place] #### VD25H #### [facility] [address] [place] [address] Bands 4 % High 0-3 [facility] Comment on above: Performed By: #### H EMDF, PT, BMP3M, PHOS3, MG3, CK3 #### [place] [address] [place] #### VD25H #### [facility] [address] [place] [address] Basophils/100 WBC (Bld) 1 % Normal 0-2 [facility] Comment on above: Performed By: #### H EMDF, PT, BMP3M, PHOS3, MG3, CK3 #### [facility] [address] [place] #### VD25H #### [facility] [address] [place] [address] Eosinophils #/vol (Bld) 0.6 10*3/uL High 0.0-0.5 [facility] Comment on above: Performed By: #### H EMDF, PT, BMP3M, PHOS3, MG3, CK3 #### [facility] [address] [place] #### VD25H #### [facility] [address] [place] [address] Eosinophils/100 WBC (Bld) 4 % Normal 1-6 [facility] Comment on above: Performed By: #### H EMDF, PT, BMP3M, PHOS3, MG3, CK3 #### [address] [place], [place] #### VD25H #### [facility] [address] [place] [address] Lymphocytes #/vol (Bld) 0.1 10*3/uL Low 1.1-4.5 [facility] Comment on above: Performed By: #### H EMDF, PT, BMP3M, PHOS3, MG3, CK3 #### [facility] [address] [place] #### VD25H #### [facility] [address] [place] [address] Lymphocytes/100 WBC (Bld) 1 % Low 20-40 [facility] Comment on above: Performed By: #### H EMDF, PT, BMP3M, PHOS3, MG3, CK3 #### [address] #### VD25H #### [facility] [address] [place] [address] Macrocytosis Slight Normal [facility] Comment on above: Performed By: #### H EMDF, PT, BMP3M, PHOS3, MG3, CK3 #### [address] #### VD25H #### [facility] [address] [place] [address] Metamyelocytes 2 % Abnormal <1 [facility] Comment on above: Performed By: #### H EMDF, PT, BMP3M, PHOS3, MG3, CK3 #### [address] #### VD25H #### [facility] [address] [place] [address] Microcytosis Slight Normal [facility] Comment on above: Performed By: #### H EMDF, PT, BMP3M, PHOS3, MG3, CK3 #### [address] #### VD25H #### [facility] [address] [place] [address] Monocytes #/vol (Bld) 0.6 10*3/uL Normal 0.2-1.1 [facility] Comment on above: Performed By: #### H EMDF, PT, BMP3M, PHOS3, MG3, CK3 #### [facility] [address] [place] #### VD25H #### [facility] [address] [place] [address] Monocytes/100 WBC (Bld) 4 % Normal 2-10 [facility] Comment on above: Performed By: #### H EMDF, PT, BMP3M, PHOS3, MG3, CK3 #### [place] [address] [address] [place], [place] #### VD25H #### [facility] [address] [place] [address] RBC morphology finding Nom (Bld) ABNORMAL Normal [facility] Comment on above: Performed By: #### H EMDF, PT, BMP3M, PHOS3, MG3, CK3 #### [address] #### VD25H #### [facility] [address] [place] [address] Seg Neutrophils 84 % High 40-80 [facility] Comment on above: Performed By: #### H EMDF, PT, BMP3M, PHOS3, MG3, CK3 #### [address] #### VD25H #### [facility] [address] [place] [address] Cells counted 100 Normal [facility] Comment on above: Performed By: #### H EMDF, PT, BMP3M, PHOS3, MG3, CK3 #### [address] #### VD25H #### [facility] [address] [place] [address] Phosphoruson 07-25-2018 Phosphate mass conc 2.7 mg/dL Normal 2.5-4.5 [facility] Comment on above: Performed By: #### H EMDF, PT, BMP3M, PHOS3, MG3, CK3 #### [address] #### VD25H #### [facility] [address] [place] [address] Triglycerideon 07-25-2018 Triglyceride mass conc 82 mg/dL Normal <150 [facility] Comment on above: Performed By: #### H EMDF, PT, BMP3M, PHOS3, MG3, CK3 #### [place] [address] [address] [place] #### VD25H #### [facility] [address] [place] [address] Basic Metabolic Panelon 06-30 Calcium mass conc 8.0 mg/dL Low 8.4-10.4 [facility] Comment on above: Performed By: #### H EMDF, PT, BMP3M, PHOS3, MG3, CK3 #### [address] #### VD25H #### [place] [address] [place] [address] Anion gap molar conc 9 Normal [facility] Comment on above: Performed By: #### H EMDF, PT, BMP3M, PHOS3, MG3, CK3 #### [address] [place] #### VD25H #### [facility] [address] [place] [address] CO2 molar conc 23 mmol/L Normal 22-30 [facility] Comment on above: Performed By: #### H EMDF, PT, BMP3M, PHOS3, MG3, CK3 #### [address] #### VD25H #### [facility] [address] [place] [address] Creatinine mass conc 0.71 mg/dL Normal 0.52-1.25 [facility] Comment on above: Performed By: #### H EMDF, PT, BMP3M, PHOS3, MG3, CK3 #### [place] [address] [place], [place] #### VD25H #### [facility] [address] [place] [address] GFR/1.73 sq M predicted among blacks MDRD vol rate/area (S/P/Bld) mL/min/{1.73_m2} Normal >60 [facility] Comment on above: Performed By: #### H EMDF, PT, BMP3M, PHOS3, MG3, CK3 #### [place] [place] #### VD25H #### [facility] [address] [place] [address] GFR/1.73 sq M predicted among non-blacks MDRD vol rate/area (S/P/Bld) mL/min/{1.73_m2} Normal >[address] [facility] Comment on above: Result Comment: Sour ce- MDRD equation with creatinine calibration to IDMS(NKDEP) eGFR not recommended for drug dose adjustment Performed By: #### H EMDF, PT, BMP3M, PHOS3, MG3, CK3 #### [address] #### VD25H #### [facility] [address] [place] [address] Glucose mass conc 160 mg/dL High 70-[address] [facility] Comment on above: Performed By: #### H EMDF, PT, BMP3M, PHOS3, MG3, CK3 #### [place] [place] #### VD25H #### [facility] [address] [place] [address] Urea nitrogen mass conc 28 mg/dL High 7-20 [facility] Comment on above: Performed By: #### H EMDF, PT, BMP3M, PHOS3, MG3, CK3 #### [address] #### VD25H #### [facility] [address] [place] [address] Chloride molar conc 109 mmol/L High 98-107 [facility] Comment on above: Performed By: #### H EMDF, PT, BMP3M, PHOS3, MG3, CK3 #### [facility] [address] [place] [address] #### VD25H #### [facility] [address] [place] [address] Potassium molar conc 3.7 mmol/L Normal 3.5-5.1 [facility] Comment on above: Performed By: #### H EMDF, PT, BMP3M, PHOS3, MG3, CK3 #### [facility] [address] [place] [address] #### VD25H #### [facility] [address] [place] [address] Sodium molar conc 141 mmol/L Normal 135-[address] [facility] Comment on above: Performed By: #### H EMDF, PT, BMP3M, PHOS3, MG3, CK3 #### [facility] [address] [place] [address] #### VD25H #### [facility] [address] [place] [address] CR Chest Portableon 07-25-19 19 CR Chest Portable Patient Name: KATHYA HOOPER Diagnostic Radiology Exam Date/Time 07/24/2018 13:12:47 EDT Exam CR Chest Portable Ordering Physician DO WOLFF KATHRYN C Accession Number [id number] CPT4 Codes 76297 () Reason For Exam line placement Report [...] Transcribed Date and Time: 07/24/2018 3:10 Normal [facility] CR Chest Portable Patient Name: KATHYA HOOPER Diagnostic Radiology Exam Date/Time 07/24/2018 07:11:26 EDT Exam CR Chest Portable Ordering Physician MARIA EUGENIA PEREZ Accession Number [id number] CPT4 Codes 38221 () Reason For Exam ETT placement Report [...] Transcribed Date and Time: 07/24/2018 7:31 Normal [facility] CULT./ST. RESPIRATORYon - CULT./ST. RESPIRATORY CULT./ST. RESPIRAT [...] 1 S Trimeth/Sulfa(CHRISTI) <= 20 S Normal [employer] [facility] Comment on above: Order Comment: Speci men Source Comment:Endotracheal Performed By: #### H EMDF, PT, BMP3M, PHOS3, MG3, CK3 #### [employer] [address] [place] [address] #### VD25H #### [employer] [address] [place] [address] CULTURE URINEon 07-24-2018 CULTURE URINE 1 Organism [...] S Trimeth/Sulfa(CHRISTI) <= 20 S Normal [facility] [employer] Comment on above: Order Comment: Speci men Source Comment:Urine, clean catch Performed By: #### H EMDF, PT, BMP3M, PHOS3, MG3, CK3 #### [employer] [address] [place] [address] #### VD25H #### [employer] [address] [place] [address] Creatinine, Ur Randomon 03-2 Creatinine, Ur Random 49.5 mg/dL Normal No Range [facility] Comment on above: Performed By: #### H EMDF, PT, BMP3M, PHOS3, MG3, CK3 #### [employer] [address] [place], [place] #### VD25H #### [employer] [facility] [address] [place] [address] Glucose,Bedsideon 07-24-2018 Glucose mass conc 124 mg/dL High 70-100 [facility] Comment on above: Result Comment: Test performed by glucose meter. Results may be 10%-15% lower than serum/plasma values. (CLIA ID [id number]) Performed By: #### H EMDF, PT, BMP3M, PHOS3, MG3, CK3 #### [employer] [facility] [address] [place] [address] #### VD25H #### [employer] [facility] [address] [place] [address] Glucose mass conc 152 mg/dL High 70-100 [facility] Comment on above: Result Comment: Test performed by glucose meter. Results may be 10%-15% lower than serum/plasma values. (CLIA ID [id number]) Performed By: #### H EMDF, PT, BMP3M, PHOS3, MG3, CK3 #### [employer] [facility] [address] [place] [address] #### VD25H #### [employer] [facility] [address] [place] [address] Glucose mass conc 149 mg/dL High 70-100 [facility] Comment on above: Result Comment: Test performed by glucose meter. Results may be 10%-15% lower than serum/plasma values. (CLIA ID [id number]) Performed By: #### H EMDF, PT, BMP3M, PHOS3, MG3, CK3 #### [employer] [facility] [address] [place] [address] #### VD25H #### [employer] [address] [place] [address] Hemogram w/ Autodiffon 07-24 Erythrocyte distribution width Ratio (RBC) 13.7 % Normal 11.5-14.5 [facility] Comment on above: Performed By: #### H EMDF, PT, BMP3M, PHOS3, MG3, CK3 #### [address] [place], [place] #### VD25H #### [facility] [address] [place] [address] Hematocrit Volume Fraction (Bld) 31.4 % Low 40.0-52.0 [facility] Comment on above: Performed By: #### H EMDF, PT, BMP3M, PHOS3, MG3, CK3 #### [place] [address] [place] #### VD25H #### [facility] [address] [facility] [place] [address] Hemoglobin mass conc (Bld) 10.7 g/dL Low 13.0-18.0 [facility] Comment on above: Performed By: #### H EMDF, PT, BMP3M, PHOS3, MG3, CK3 #### [address] #### VD25H #### [facility] [address] [place] [address] MCH Entitic mass (RBC) 29.4 pg Normal 26.0-34.0 [facility] Comment on above: Performed By: #### H EMDF, PT, BMP3M, PHOS3, MG3, CK3 #### [address] #### VD25H #### [facility] [address] [place] [address] MCHC mass conc (RBC) 33.9 % Normal 32.0-36.0 [facility] Comment on above: Performed By: #### H EMDF, PT, BMP3M, PHOS3, MG3, CK3 #### [address] #### VD25H #### [facility] [address] [place] [address] MCV Entitic volume (RBC) 86.8 fL Normal 80.0-98.0 [facility] Comment on above: Performed By: #### H EMDF, PT, BMP3M, PHOS3, MG3, CK3 #### [place] [place] #### VD25H #### [facility] [address] [place] [address] Platelet mean volume Entitic volume (Bld) 8.6 fL Normal 7.4-10.4 [facility] Comment on above: Performed By: #### H EMDF, PT, BMP3M, PHOS3, MG3, CK3 #### [address] [place] #### VD25H #### [facility] [address] [place] [address] Platelets #/vol (Bld) 304 10*3/uL Normal 140-440 [facility] Comment on above: Performed By: #### H EMDF, PT, BMP3M, PHOS3, MG3, CK3 #### [address] [place] #### VD25H #### [place] [address] [place] [address] RBC #/vol (Bld) 3.62 10*6/uL Low 4.40-5.[address] [facility] Comment on above: Performed By: #### H EMDF, PT, BMP3M, PHOS3, MG3, CK3 #### [address] #### VD25H #### [facility] [address] [place] [address] WBC #/vol (Bld) 14.0 10*3/uL High 3.6-10.[address] [facility] Comment on above: Performed By: #### H EMDF, PT, BMP3M, PHOS3, MG3, CK3 #### [address] #### VD25H #### [place] [address] [place] [address] Magnesiumon 07-24-2018 Magnesium mass conc 2.2 mg/dL Normal 1.6-2.3 [facility] Comment on above: Performed By: #### H EMDF, PT, BMP3M, PHOS3, MG3, CK3 #### [address] #### VD25H #### [facility] [address] [place] [address] Manual Diffon 07-24-2018 Abs Baso Cnt 0.0 10*3/uL Normal 0.0-0.2 [facility] Comment on above: Performed By: #### H EMDF, PT, BMP3M, PHOS3, MG3, CK3 #### [address] #### VD25H #### [place] [address] [place] [address] Abs Neutrophile Cnt 12.2 10*3/uL High 2.2-8.2 [facility] Comment on above: Performed By: #### H EMDF, PT, BMP3M, PHOS3, MG3, CK3 #### [address] #### VD25H #### [facility] [address] [place] [address] Eosinophils #/vol (Bld) 0.4 10*3/uL Normal 0.0-0.5 [facility] Comment on above: Performed By: #### H EMDF, PT, BMP3M, PHOS3, MG3, CK3 #### [address] #### VD25H #### [facility] [address] [place] [address] Eosinophils/100 WBC (Bld) 3 % Normal 1-6 [facility] Comment on above: Performed By: #### H EMDF, PT, BMP3M, PHOS3, MG3, CK3 #### [address] #### VD25H #### [facility] [address] [place] [address] Lymphocytes #/vol (Bld) 1.0 10*3/uL Low 1.1-4.5 [facility] Comment on above: Performed By: #### H EMDF, PT, BMP3M, PHOS3, MG3, CK3 #### [place] [place] #### VD25H #### [facility] [address] [place] [address] Lymphocytes/100 WBC (Bld) 7 % Low 20-40 [facility] Comment on above: Performed By: #### H EMDF, PT, BMP3M, PHOS3, MG3, CK3 #### [address] #### VD25H #### [place] [address] [place] [address] Monocytes #/vol (Bld) 0.4 10*3/uL Normal 0.2-1.1 [facility] Comment on above: Performed By: #### H EMDF, PT, BMP3M, PHOS3, MG3, CK3 #### [address] #### VD25H #### [facility] [address] [place] [address] Monocytes/100 WBC (Bld) 3 % Normal 2-10 [facility] Comment on above: Performed By: #### H EMDF, PT, BMP3M, PHOS3, MG3, CK3 #### [address] [place] #### VD25H #### [facility] [address] [place] [address] RBC morphology finding Nom (Bld) Normal Normal [facility] Comment on above: Performed By: #### H EMDF, PT, BMP3M, PHOS3, MG3, CK3 #### [address] #### VD25H #### [facility] [address] [place] [address] Seg Neutrophils 87 % High 40-80 [facility] Comment on above: Performed By: #### H EMDF, PT, BMP3M, PHOS3, MG3, CK3 #### [facility] [address] [place] #### VD25H #### [facility] [address] [place] [address] Bands 0 % Normal 0-3 [facility] Comment on above: Performed By: #### H EMDF, PT, BMP3M, PHOS3, MG3, CK3 #### [facility] [address] [place] #### VD25H #### [facility] [address] [place] [address] Basophils/100 WBC (Bld) 0 % Normal 0-2 [facility] Comment on above: Performed By: #### H EMDF, PT, BMP3M, PHOS3, MG3, CK3 #### [facility] [address] [place] #### VD25H #### [facility] [address] [place] [address] Cells counted 100 Normal [facility] Comment on above: Performed By: #### H EMDF, PT, BMP3M, PHOS3, MG3, CK3 #### [facility] [address] [place] #### VD25H #### [facility] [address] [place] [address] Phosphoruson 07-24-2018 Phosphate mass conc 2.7 mg/dL Normal 2.5-4.5 [facility] Comment on above: Performed By: #### H EMDF, PT, BMP3M, PHOS3, MG3, CK3 #### [facility] [address] [place] #### VD25H #### [facility] [address] [place] [address] Triglycerideon 07-24-2018 Triglyceride mass conc 78 mg/dL Normal <150 [facility] Comment on above: Performed By: #### H EMDF, PT, BMP3M, PHOS3, MG3, CK3 #### [place] [address] [place] #### VD25H #### [facility] [address] [place] [address] Urea Nitrogen,Ur Randomon Urea nitrogen mass conc 1199 mg/dL Normal No Range S [facility] Comment on above: Performed By: #### H EMDF, PT, BMP3M, PHOS3, MG3, CK3 #### [place] [address] [place] #### VD25H #### [facility] [address] [place] [address] Add on test from HISon 07-23 Add on test from HIS Accepted Normal [facility] Comment on above: Result Comment: Spec imen available & acceptable for analysis. Performed By: #### H EMDF, PT, BMP3M, PHOS3, MG3, CK3 #### [place] [place] #### VD25H #### [facility] [address] [place] [address] Arterial Blood Gaseson 07-23 CO2 molar conc 23.0 mmol/L Normal 23.0-27.0 [facility] Comment on above: Performed By: #### H EMDF, PT, BMP3M, PHOS3, MG3, CK3 #### [place] [address] [place] #### VD25H #### [facility] [address] [place] [address] HCO3 molar conc (Bld) 22.0 mmol/L Normal 21.0-25.0 [facility] Comment on above: Performed By: #### H EMDF, PT, BMP3M, PHOS3, MG3, CK3 #### [place] [address] [place], [place] #### VD25H #### [facility] [address] [place] [address] Hemoglobin mass conc (Bld) 10.9 g/dL Normal ScreenOnly [facility] Comment on above: Performed By: #### H EMDF, PT, BMP3M, PHOS3, MG3, CK3 #### [facility] [address] [place] #### VD25H #### [facility] [address] [place] [address] Oxygen ppres (Bld) 102.4 mm[Hg] High 80.0-100.0 [facility] Comment on above: Performed By: #### H EMDF, PT, BMP3M, PHOS3, MG3, CK3 #### [place] [address] [place] #### VD25H #### [facility] [address] [place] [address] Oxygen saturation in Blood 97.7 % Normal 95.0-100.0 [facility] Comment on above: Performed By: #### H EMDF, PT, BMP3M, PHOS3, MG3, CK3 #### [address] #### VD25H #### [facility] [address] [place] [address] pCO2 34.4 mm[Hg] Low 35.0-45.0 [facility] Comment on above: Performed By: #### H EMDF, PT, BMP3M, PHOS3, MG3, CK3 #### [address] [place] #### VD25H #### [facility] [address] [place] [address] pH (Bld) 7.423 Normal 7.350-7.450 [facility] Comment on above: Performed By: #### H EMDF, PT, BMP3M, PHOS3, MG3, CK3 #### [place] [address] [place], [place] #### VD25H #### [facility] [address] [place] [address] Std Base Excess -1.9 mmol/L Normal -3.0-3.0 [facility] Comment on above: Performed By: #### H EMDF, PT, BMP3M, PHOS3, MG3, CK3 #### [facility] [address] [place] [address] #### VD25H #### [facility] [address] [place] [address] FIO2 .30 Normal [facility] Comment on above: Performed By: #### H EMDF, PT, BMP3M, PHOS3, MG3, CK3 #### [place] [address] [place] #### VD25H #### [facility] [address] [place] [address] Basic Metabolic Panelon 03-2 Anion gap molar conc 12 Normal [facility] Comment on above: Performed By: #### H EMDF, PT, BMP3M, PHOS3, MG3, CK3 #### [place] [address] [place] #### VD25H #### [facility] [address] [place] [address] Calcium mass conc 7.5 mg/dL Low 8.4-10.4 [facility] Comment on above: Performed By: #### H EMDF, PT, BMP3M, PHOS3, MG3, CK3 #### [facility] [address] [place] #### VD25H #### [facility] [address] [place] [address] CO2 molar conc 23 mmol/L Normal 22-30 [facility] Comment on above: Performed By: #### H EMDF, PT, BMP3M, PHOS3, MG3, CK3 #### [address] [place] #### VD25H #### [facility] [address] [place] [address] Glucose mass conc 148 mg/dL High 70-[address] [facility] Comment on above: Performed By: #### H EMDF, PT, BMP3M, PHOS3, MG3, CK3 #### [facility] [address] [place] #### VD25H #### [facility] [address] [place] [address] Urea nitrogen mass conc 82 mg/dL High 7-20 [facility] Comment on above: Performed By: #### H EMDF, PT, BMP3M, PHOS3, MG3, CK3 #### [place] [address] [place], [place] #### VD25H #### [facility] [address] [place] [address] Creatinine mass conc 3.01 mg/dL High 0.52-1.25 [facility] Comment on above: Performed By: #### H EMDF, PT, BMP3M, PHOS3, MG3, CK3 #### [facility] [address] [place] #### VD25H #### [facility] [address] [place] [address] GFR/1.73 sq M predicted among blacks MDRD vol rate/area (S/P/Bld) 25.8 mL/min/{1.73_m2} Normal >60 [facility] Comment on above: Performed By: #### H EMDF, PT, BMP3M, PHOS3, MG3, CK3 #### [place] [address] [place] #### VD25H #### [facility] [address] [place] [address] GFR/1.73 sq M predicted among non-blacks MDRD vol rate/area (S/P/Bld) 21.3 mL/min/{1.73_m2} Normal >60 [facility] Comment on above: Result Comment: Sour ce- MDRD equation with creatinine calibration to IDMS(NKDEP) eGFR not recommended for drug dose adjustment Performed By: #### H EMDF, PT, BMP3M, PHOS3, MG3, CK3 #### [facility] [address] [place] [address] #### VD25H #### [facility] [address] [place] [address] Chloride molar conc 106 mmol/L Normal 98-107 [facility] Comment on above: Performed By: #### H EMDF, PT, BMP3M, PHOS3, MG3, CK3 #### [facility] [address] [facility] [place] [address] #### VD25H #### [facility] [address] [place] [address] Potassium molar conc 4.2 mmol/L Normal 3.5-5.1 [facility] Comment on above: Performed By: #### H EMDF, PT, BMP3M, PHOS3, MG3, CK3 #### [facility] [address] [place] #### VD25H #### [facility] [address] [place] [address] Sodium molar conc 141 mmol/L Normal 135-[address] [facility] Comment on above: Performed By: #### H EMDF, PT, BMP3M, PHOS3, MG3, CK3 #### [facility] [address] [facility] [place] #### VD25H #### [facility] [address] [place] [address] CR Chest Portableon 07-24-19 19 CR Chest Portable Patient Name: KATHYA HOOPER Diagnostic Radiology Exam Date/Time 07/23/2018 07:06:03 EDT Exam CR Chest Portable Ordering Physician MARIA EUGENIA PEREZ Accession Number [id number] CPT4 Codes 23228 () Reason For Exam ETT placement Report [...] Transcribed Date and Time: 07/23/2018 7:58 Normal [facility] Creatinine, Ur Randomon 06-30 Creatinine, Ur Random 56.8 mg/dL Normal No Range [facility] Comment on above: Performed By: #### H EMDF, PT, BMP3M, PHOS3, MG3, CK3 #### [address] #### VD25H #### [facility] [employer] [facility] [address] [place] [address] Glucose,Bedsideon 07-23-2018 Glucose mass conc 116 mg/dL High 70-100 [facility] [facility] Comment on above: Result Comment: Test performed by glucose meter. Results may be 10%-15% lower than serum/plasma values. (CLIA ID [id number]) Performed By: #### H EMDF, PT, BMP3M, PHOS3, MG3, CK3 #### [facility] [employer] [facility] [address] [place], [place] #### VD25H #### [facility] [employer] [facility] [address] [place] [address] Glucose mass conc 139 mg/dL High 70-100 [facility] Comment on above: Result Comment: Test performed by glucose meter. Results may be 10%-15% lower than serum/plasma values. (CLIA ID [id number]) Performed By: #### H EMDF, PT, BMP3M, PHOS3, MG3, CK3 #### [facility] [employer] [facility] [address] [place], [place] #### VD25H #### [place] [address] [place] [address] Glucose mass conc 140 mg/dL High 70-[address] [facility] Comment on above: Result Comment: Test performed by glucose meter. Results may be 10%-15% lower than serum/plasma values. (CLIA ID [id number]) Performed By: #### H EMDF, PT, BMP3M, PHOS3, MG3, CK3 #### [address] #### VD25H #### [place] [address] [place] [address] Glucose mass conc 140 mg/dL High 70-[address] [facility] Comment on above: Result Comment: Test performed by glucose meter. Results may be 10%-15% lower than serum/plasma values. (CLIA ID [id number]) Performed By: #### H EMDF, PT, BMP3M, PHOS3, MG3, CK3 #### [address] #### VD25H #### [address] [place] [address] Hemogram w/ Autodiffon 07-23 Abs Baso Cnt 0.0 10*3/uL Normal 0.0-0.2 [facility] Comment on above: Performed By: #### H EMDF, PT, BMP3M, PHOS3, MG3, CK3 #### [address] #### VD25H #### [place] [address] [place] [address] Abs Neutrophile Cnt 16.2 10*3/uL High 1.8-7.0 [facility] Comment on above: Performed By: #### H EMDF, PT, BMP3M, PHOS3, MG3, CK3 #### [address] #### VD25H #### [place] [address] [place] [address] Basophils/100 WBC (Bld) 0.3 % Normal 0.0-2.0 [facility] Comment on above: Performed By: #### H EMDF, PT, BMP3M, PHOS3, MG3, CK3 #### [facility] [address] [place], [place] #### VD25H #### [facility] [address] [place] [address] Eosinophils #/vol (Bld) 0.2 10*3/uL Normal 0.0-0.5 [facility] Comment on above: Performed By: #### H EMDF, PT, BMP3M, PHOS3, MG3, CK3 #### [address] #### VD25H #### [facility] [address] [place] [address] Eosinophils/100 WBC (Bld) 1.2 % Normal 1.0-6.0 [facility] Comment on above: Performed By: #### H EMDF, PT, BMP3M, PHOS3, MG3, CK3 #### [address] #### VD25H #### [facility] [address] [place] [address] Erythrocyte distribution width Ratio (RBC) 13.9 % Normal 11.5-14.5 [facility] Comment on above: Performed By: #### H EMDF, PT, BMP3M, PHOS3, MG3, CK3 #### [address] #### VD25H #### [facility] [address] [place] [address] Granulocytes/100 WBC (Bld) 86.8 % High 40.0-80.0 [facility] Comment on above: Performed By: #### H EMDF, PT, BMP3M, PHOS3, MG3, CK3 #### [address] #### VD25H #### [facility] [address] [place] [address] Hematocrit Volume Fraction (Bld) 26.7 % Low 40.0-52.0 [facility] Comment on above: Performed By: #### H EMDF, PT, BMP3M, PHOS3, MG3, CK3 #### [facility] [address] [place], [place] #### VD25H #### [facility] [address] [place] [address] Hemoglobin mass conc (Bld) 8.9 g/dL Low 13.0-18.0 [facility] Comment on above: Performed By: #### H EMDF, PT, BMP3M, PHOS3, MG3, CK3 #### [address] #### VD25H #### [facility] [address] [place] [address] Lymphocytes #/vol (Bld) 1.2 10*3/uL Normal 1.0-4.3 [facility] Comment on above: Performed By: #### H EMDF, PT, BMP3M, PHOS3, MG3, CK3 #### [address] #### VD25H #### [facility] [address] [place] [address] Lymphocytes/100 WBC (Bld) 6.6 % Low 20.0-40.0 [facility] Comment on above: Performed By: #### H EMDF, PT, BMP3M, PHOS3, MG3, CK3 #### [address] #### VD25H #### [facility] [address] [place] [address] MCH Entitic mass (RBC) 29.5 pg Normal 26.0-34.0 [facility] Comment on above: Performed By: #### H EMDF, PT, BMP3M, PHOS3, MG3, CK3 #### [address] #### VD25H #### [facility] [address] [place] [address] MCHC mass conc (RBC) 33.5 % Normal 32.0-36.0 [facility] Comment on above: Performed By: #### H EMDF, PT, BMP3M, PHOS3, MG3, CK3 #### [address] #### VD25H #### [facility] [address] [place] [address] MCV Entitic volume (RBC) 87.9 fL Normal 80.0-98.0 [facility] Comment on above: Performed By: #### H EMDF, PT, BMP3M, PHOS3, MG3, CK3 #### [address] #### VD25H #### [place] [address] [place] [address] Monocytes #/vol (Bld) 1.0 10*3/uL High 0.0-0.8 [facility] Comment on above: Performed By: #### H EMDF, PT, BMP3M, PHOS3, MG3, CK3 #### [address] #### VD25H #### [place] [address] [place] [address] Monocytes/100 WBC (Bld) 5.1 % Normal 2.0-10.0 [facility] Comment on above: Performed By: #### H EMDF, PT, BMP3M, PHOS3, MG3, CK3 #### [address] #### VD25H #### [place] [address] [place] [address] Platelet mean volume Entitic volume (Bld) 8.2 fL Normal 7.4-10.4 [facility] Comment on above: Performed By: #### H EMDF, PT, BMP3M, PHOS3, MG3, CK3 #### [address] [place], [place] #### VD25H #### [facility] [address] [place] [address] Platelets #/vol (Bld) 294 10*3/uL Normal 140-440 [facility] Comment on above: Performed By: #### H EMDF, PT, BMP3M, PHOS3, MG3, CK3 #### [facility] [address] [place] #### VD25H #### [facility] [address] [place] [address] RBC #/vol (Bld) 3.03 10*6/uL Low 4.40-5.90 [facility] Comment on above: Performed By: #### H EMDF, PT, BMP3M, PHOS3, MG3, CK3 #### [place] [address] [place], [place] #### VD25H #### [facility] [address] [place] [address] WBC #/vol (Bld) 18.7 10*3/uL High 3.6-10.[address] [facility] Comment on above: Performed By: #### H EMDF, PT, BMP3M, PHOS3, MG3, CK3 #### [place] [address] [place] #### VD25H #### [facility] [address] [place] [address] LDHon 07-23-2018 LDH 342 U/L High 65-175 [facility] Comment on above: Performed By: #### H EMDF, PT, BMP3M, PHOS3, MG3, CK3 #### [place] [address] [place] #### VD25H #### [facility] [address] [place] [address] Magnesiumon 07-23-2018 Magnesium mass conc 2.5 mg/dL High 1.6-2.3 [facility] Comment on above: Performed By: #### H EMDF, PT, BMP3M, PHOS3, MG3, CK3 #### [place] [address] [place] #### VD25H #### [facility] [address] [place] [address] Phosphoruson 07-23-2018 Phosphate mass conc 4.5 mg/dL Normal 2.5-4.5 [facility] Comment on above: Performed By: #### H EMDF, PT, BMP3M, PHOS3, MG3, CK3 #### [place] [address] [place] #### VD25H #### [facility] [address] [place] [address] Protein, Total Body Fluidon 07-23-2018 Protein,Total-Body Fld 2.7 g/dL Normal No Range [facility] Comment on above: Performed By: #### H EMDF, PT, BMP3M, PHOS3, MG3, CK3 #### [place] [address] [place] #### VD25H #### [facility] [address] [place] [address] Triglycerideon 07-23-2018 Triglyceride mass conc 63 mg/dL Normal <150 [facility] Comment on above: Performed By: #### H EMDF, PT, BMP3M, PHOS3, MG3, CK3 #### [place] [address] [place] #### VD25H #### [facility] [address] [place] [address] Urea Nitrogen,Ur Randomon Urea nitrogen mass conc 677 mg/dL Normal No Range [facility] Comment on above: Performed By: #### H EMDF, PT, BMP3M, PHOS3, MG3, CK3 #### [place] [address] [place] #### VD25H #### [facility] [address] [place] [address] Urinalysis,Macroon 9 Appearance Nom (U) cloudy Normal Clear [facility] Comment on above: Performed By: #### H EMDF, PT, BMP3M, PHOS3, MG3, CK3 #### [address] #### VD25H #### [facility] [address] [place] [address] Bilirubin,Ur Negative Normal Negative [facility] Comment on above: Performed By: #### H EMDF, PT, BMP3M, PHOS3, MG3, CK3 #### [address] #### VD25H #### [facility] [address] [place] [address] Color Nom (U) dk.yel Normal Lt. Yellow [facility] Comment on above: Performed By: #### H EMDF, PT, BMP3M, PHOS3, MG3, CK3 #### [address] #### VD25H #### [facility] [address] [place] [address] Glucose Ql (U) NORM Normal Negative [facility] Comment on above: Performed By: #### H EMDF, PT, BMP3M, PHOS3, MG3, CK3 #### [address] #### VD25H #### [facility] [address] [place] [address] Ketone,Urine Negative Normal Negative [facility] Comment on above: Performed By: #### H EMDF, PT, BMP3M, PHOS3, MG3, CK3 #### [address] #### VD25H #### [facility] [address] [place] [address] Nitrite Ql (U) Negative Normal Negative [facility] Comment on above: Performed By: #### H EMDF, PT, BMP3M, PHOS3, MG3, CK3 #### [address] [place], [place] #### VD25H #### [facility] [address] [place] [address] Occult Blood,Ur 250 {RBC}/uL Normal Negative [facility] Comment on above: Performed By: #### H EMDF, PT, BMP3M, PHOS3, MG3, CK3 #### [place] [address] [place] #### VD25H #### [facility] [address] [place] [address] pH (U) 5.0 Normal 5.0-8.0 [facility] Comment on above: Performed By: #### H EMDF, PT, BMP3M, PHOS3, MG3, CK3 #### [address] #### VD25H #### [place] [address] [place] [address] Protein mass conc (U) 75 mg/dL Normal Negative [facility] Comment on above: Performed By: #### H EMDF, PT, BMP3M, PHOS3, MG3, CK3 #### [address] [place], [place] #### VD25H #### [place] [address] [place] [address] Specific [place],Urine 1.015 Normal 1.005-1.030 [facility] Comment on above: Performed By: #### H EMDF, PT, BMP3M, PHOS3, MG3, CK3 #### [address] [place], [place] #### VD25H #### [facility] [address] [place] [address] Urobilinogen Qn (U) NORM Normal 0-1 [facility] Comment on above: Performed By: #### H EMDF, PT, BMP3M, PHOS3, MG3, CK3 #### [address] [place] [address] #### VD25H #### [facility] [address] [place] [address] WBC #/vol (Bld) 2 + Normal Negative [facility] Comment on above: Performed By: #### H EMDF, PT, BMP3M, PHOS3, MG3, CK3 #### [address] #### VD25H #### [facility] [address] [place] [address] Urinalysis,Microscopicon Bacteria LM.HPF #/area (Urine sed) Moderate (6-50) Normal Negative [facility] Comment on above: Performed By: #### H EMDF, PT, BMP3M, PHOS3, MG3, CK3 #### [address] #### VD25H #### [place] [address] [place] [address] Epithelial cells LM.HPF #/area (Urine sed) 0 - 2 Normal 3-5 [facility] Comment on above: Performed By: #### H EMDF, PT, BMP3M, PHOS3, MG3, CK3 #### [address] #### VD25H #### [place] [address] [place] [address] RBC LM.HPF #/area (Urine sed) /[HPF] Normal 0-2 [facility] Comment on above: Performed By: #### H EMDF, PT, BMP3M, PHOS3, MG3, CK3 #### [address] #### VD25H #### [facility] [address] [place] [address] Volume,Urine 8-12 ml Normal [facility] Comment on above: Performed By: #### H EMDF, PT, BMP3M, PHOS3, MG3, CK3 #### [address] #### VD25H #### [facility] [employer] [facility] [address] [place] [address] WBC LM.HPF #/area (Urine sed) 26 - 50 Normal 0-5 [facility] Comment on above: Performed By: #### H EMDF, PT, BMP3M, PHOS3, MG3, CK3 #### [facility] [employer] [facility] [address] [place] [address] #### VD25H #### [facility] [address] [place] [address] VL Venous Duplex US Lower Ex t Bilateralon 07-23-2018 VL Venous Duplex US Lower Ext Bilateral Patient Name: KATHYA HOOPER Ultrasound Exam Date/Time 07/23/2018 11:16:11 EDT Exam VL Venous Duplex US Lower Ext Bilateral Ordering Physician ETIENNE MARTÍNEZ JULIE Accession Number [id number] CPT4 Codes 26658 () Reason For Exam edema Report [facility] --- Lower Extremity Venous Duplex Report Patient Name: Kathya Hooper : 1955 Study Date: 07/23/2018 W (63yrs) Age: 63 Account: [id number] Gender: M Loc: [id number] BP: Ordering: Yesenia Martínez Technologist: Ordering Physician: Yesenia Martínez Willow Worker: León Chaidez RVT, [facility] Interpreting Physician: Vamsi York MD --- Location: [facility] --- INDICATIONS: Edema. bilateral calf edema. [...] performed. The images were obtained using a In Ovo E9 vascular ultrasound machine. --- VENOUS FLOW [...] --+ Electronically signed by: Vamsi York MD [id number] Final Dictated: 07/23/2018 3:00 pm Dictating Physician: VAMSI YORK Signed Date and Time: 07/23/2018 3:00 pm Signed by: VAMSI YORK Normal [facility] Vancomycin Troughon 07-24-19 19 Vancomycin Trough 10.8 ug/mL Low 15.0-20.[address] [facility] Comment on above: Result Comment: . Performed By: #### H EMDF, PT, BMP3M, PHOS3, MG3, CK3 #### [place] [address] [address] [place], [place] #### VD25H #### [facility] [address] [place] [address] Basic Metabolic Panelon 06-30 Calcium mass conc 7.9 mg/dL Low 8.4-10.4 [facility] Comment on above: Performed By: #### H EMDF, PT, BMP3M, PHOS3, MG3, CK3 #### [place] [address] [place] #### VD25H #### [facility] [address] [place] [address] Anion gap molar conc 11 Normal [facility] Comment on above: Performed By: #### H EMDF, PT, BMP3M, PHOS3, MG3, CK3 #### [address] #### VD25H #### [facility] [address] [place] [address] CO2 molar conc 28 mmol/L Normal 22-30 [facility] Comment on above: Performed By: #### H EMDF, PT, BMP3M, PHOS3, MG3, CK3 #### [address] #### VD25H #### [facility] [address] [place] [address] Glucose mass conc 134 mg/dL High 70-[address] [facility] Comment on above: Performed By: #### H EMDF, PT, BMP3M, PHOS3, MG3, CK3 #### [facility] [address] [place] #### VD25H #### [facility] [address] [place] [address] Urea nitrogen mass conc 51 mg/dL High 7-20 [facility] Comment on above: Performed By: #### H EMDF, PT, BMP3M, PHOS3, MG3, CK3 #### [place] [address] [place], [place] #### VD25H #### [facility] [address] [place] [address] Creatinine mass conc 1.57 mg/dL High 0.52-1.25 [facility] Comment on above: Performed By: #### H EMDF, PT, BMP3M, PHOS3, MG3, CK3 #### [address] #### VD25H #### [place] [address] [place] [address] GFR/1.73 sq M predicted among blacks MDRD vol rate/area (S/P/Bld) 54.6 mL/min/{1.73_m2} Normal >60 [facility] Comment on above: Performed By: #### H EMDF, PT, BMP3M, PHOS3, MG3, CK3 #### [address] #### VD25H #### [place] [address] [place] [address] GFR/1.73 sq M predicted among non-blacks MDRD vol rate/area (S/P/Bld) 45.1 mL/min/{1.73_m2} Normal >60 [facility] Comment on above: Result Comment: Sour ce- MDRD equation with creatinine calibration to IDMS(NKDEP) eGFR not recommended for drug dose adjustment Performed By: #### H EMDF, PT, BMP3M, PHOS3, MG3, CK3 #### [address] #### VD25H #### [facility] [address] [place] [address] Chloride molar conc 107 mmol/L Normal 98-107 [facility] Comment on above: Performed By: #### H EMDF, PT, BMP3M, PHOS3, MG3, CK3 #### [facility] [address] [place], [place] #### VD25H #### [facility] [address] [place] [address] Potassium molar conc 3.8 mmol/L Normal 3.5-5.1 [facility] Comment on above: Performed By: #### H EMDF, PT, BMP3M, PHOS3, MG3, CK3 #### [facility] [address] [place], [place] #### VD25H #### [facility] [address] [place] [address] Sodium molar conc 146 mmol/L High 135-[address] [facility] Comment on above: Performed By: #### H EMDF, PT, BMP3M, PHOS3, MG3, CK3 #### [facility] [address] [place] #### VD25H #### [facility] [address] [place] [address] CR Abdomen APon 07-22-2018 CR Abdomen AP Patient Name: KATHYA HOOPER Diagnostic Radiology Exam Date/Time 07/22/2018 08:02:02 EDT Exam CR Abdomen AP Ordering Physician MARIA EUGENIA PEREZ Accession Number [id number] CPT4 Codes 20079 () Reason For Exam ileus Report Supine [...] Transcribed Date and Time: 07/22/2018 9:28 Normal [facility] CR Chest Portableon 07-23-19 19 CR Chest Portable Patient Name: KATHYA HOOPER Diagnostic Radiology Exam Date/Time 07/22/2018 16:32:15 EDT Exam CR Chest Portable Ordering Physician MD NATE, [facility] Accession Number [id number] CPT4 Codes 80733 () Reason For Exam Thoracentesis Report Clinical [...] RUSSELL Transcribed Date and Time: 07/22/2018 6:46 [facility] CR Chest Portable Patient Name: KATHYA HOOPER Diagnostic Radiology Exam Date/Time 07/22/2018 06:49:22 EDT Exam CR Chest Portable Ordering Physician MARIA EUGENIA PEREZ Accession Number [id number] CPT4 Codes 36777 () Reason For Exam ETT placement Report [...] Transcribed Date and Time: 07/22/2018 9:31 Normal [facility] CULTURE AND STAIN - FLUIDon 07-22-2018 CULTURE AND STAIN - FLUID CULTURE & STAIN - FLUID --> Status: F No growth at 5 days. STAIN GRAM --> Status: F Moderate polymorphonuclear cells/lpf. Moderate mononuclear cells/lpf No organisms seen. Cytocentrifugation performed. Moderate mononuclear cells/lpf No organisms seen. Cytocentrifugation performed. Normal [facility] Comment on above: Order Comment: Speci men Source Comment:Body Fluid Performed By: #### H EMDF, PT, BMP3M, PHOS3, MG3, CK3 #### [facility] [address] [place] [address] #### VD25H #### [facility] [address] [place] [address] Cell Count,Body Fluidon 06-30 Nucleated Cells 259 {cells}/uL Normal [facility] Comment on above: Performed By: #### H EMDF, PT, BMP3M, PHOS3, MG3, CK3 #### [facility] [address] [facility] [place] [address] #### VD25H #### [facility] [address] [place] [address] RBC Count Body Fld 123 {RBC}/uL Normal [facility] Comment on above: Performed By: #### H EMDF, PT, BMP3M, PHOS3, MG3, CK3 #### [facility] [address] [facility] #### VD25H #### [facility] [address] [place] [address] Fluid Type thoracentesis Normal [facility] Comment on above: Performed By: #### H EMDF, PT, BMP3M, PHOS3, MG3, CK3 #### [place] [address] [address] [facility] #### VD25H #### [facility] [address] [place] [address] Glucose, Body Fluidon 2018 Fluid Type Thoracentesis Normal [facility] Comment on above: Performed By: #### H EMDF, PT, BMP3M, PHOS3, MG3, CK3 #### [place] [address] [address] [facility], [place] #### VD25H #### [facility] [address] [place] [address] Glucose, Body Fluid 136 mg/dL Normal No Range [facility] Comment on above: Performed By: #### H EMDF, PT, BMP3M, PHOS3, MG3, CK3 #### [place] [address] [address] [facility], [place] #### VD25H #### [facility] [address] [place] [address] Glucose,Bedsideon 07-22-2018 Glucose mass conc 142 mg/dL High 70-[address] [facility] Comment on above: Result Comment: Test performed by glucose meter. Results may be 10%-15% lower than serum/plasma values. (CLIA ID [id number]) Performed By: #### H EMDF, PT, BMP3M, PHOS3, MG3, CK3 #### [facility] [address] [place], [place] #### VD25H #### [facility] [address] [place] [address] Glucose mass conc 127 mg/dL High 70-100 [facility] Comment on above: Result Comment: Test performed by glucose meter. Results may be 10%-15% lower than serum/plasma values. (CLIA ID [id number]) Performed By: #### H EMDF, PT, BMP3M, PHOS3, MG3, CK3 #### [employer] [facility] [place], [place] #### VD25H #### [facility] [address] [place] [address] Glucose mass conc 139 mg/dL High 70-100 [facility] Comment on above: Result Comment: Test performed by glucose meter. Results may be 10%-15% lower than serum/plasma values. (CLIA ID [id number]) Performed By: #### H EMDF, PT, BMP3M, PHOS3, MG3, CK3 #### [facility] [address] [place], [place] #### VD25H #### [facility] [address] [place] [address] Glucose mass conc 124 mg/dL High 70-100 [facility] Comment on above: Result Comment: Test performed by glucose meter. Results may be 10%-15% lower than serum/plasma values. (CLIA ID [id number]) Performed By: #### H EMDF, PT, BMP3M, PHOS3, MG3, CK3 #### [facility] [address] [place], [place] #### VD25H #### [facility] [address] [place] [address] Glucose mass conc 128 mg/dL High 70-100 [facility] Comment on above: Result Comment: Test performed by glucose meter. Results may be 10%-15% lower than serum/plasma values. (CLIA ID [id number]) Performed By: #### H EMDF, PT, BMP3M, PHOS3, MG3, CK3 #### [address] #### VD25H #### [facility] [address] [place] [address] Glucose mass conc 113 mg/dL High 70-[address] [facility] Comment on above: Result Comment: Test performed by glucose meter. Results may be 10%-15% lower than serum/plasma values. (CLIA ID [id number]) Performed By: #### H EMDF, PT, BMP3M, PHOS3, MG3, CK3 #### [address] #### VD25H #### [place] [address] [place] [address] Hemogram w/ Autodiffon 07-22 Abs Baso Cnt 0.1 10*3/uL Normal 0.0-0.2 [facility] Comment on above: Performed By: #### H EMDF, PT, BMP3M, PHOS3, MG3, CK3 #### [address] #### VD25H #### [facility] [address] [place] [address] Abs Neutrophile Cnt 15.2 10*3/uL High 1.8-7.0 [facility] Comment on above: Performed By: #### H EMDF, PT, BMP3M, PHOS3, MG3, CK3 #### [address] #### VD25H #### [facility] [address] [facility] [address] Basophils/100 WBC (Bld) 0.6 % Normal 0.0-2.0 [facility] Comment on above: Performed By: #### H EMDF, PT, BMP3M, PHOS3, MG3, CK3 #### [facility] [address] [place], [place] #### VD25H #### [facility] [address] [place] [address] Eosinophils #/vol (Bld) 0.2 10*3/uL Normal 0.0-0.5 [facility] Comment on above: Performed By: #### H EMDF, PT, BMP3M, PHOS3, MG3, CK3 #### [address] [address] [place], [place] #### VD25H #### [facility] [address] [place] [address] Eosinophils/100 WBC (Bld) 0.9 % Low 1.0-6.0 [facility] Comment on above: Performed By: #### H EMDF, PT, BMP3M, PHOS3, MG3, CK3 #### [address] #### VD25H #### [facility] [address] [place] [address] Erythrocyte distribution width Ratio (RBC) 13.9 % Normal 11.5-14.5 [facility] Comment on above: Performed By: #### H EMDF, PT, BMP3M, PHOS3, MG3, CK3 #### [address] #### VD25H #### [facility] [address] [place] [address] Granulocytes/100 WBC (Bld) 88.8 % High 40.0-80.0 [facility] Comment on above: Performed By: #### H EMDF, PT, BMP3M, PHOS3, MG3, CK3 #### [address] #### VD25H #### [facility] [address] [place] [address] Hematocrit Volume Fraction (Bld) 31.6 % Low 40.0-52.0 [facility] Comment on above: Performed By: #### H EMDF, PT, BMP3M, PHOS3, MG3, CK3 #### [address] [address] [place], [place] #### VD25H #### [facility] [address] [place] [address] Hemoglobin mass conc (Bld) 10.9 g/dL Low 13.0-18.0 [facility] Comment on above: Performed By: #### H EMDF, PT, BMP3M, PHOS3, MG3, CK3 #### [address] [place] #### VD25H #### [facility] [address] [place] [address] Lymphocytes #/vol (Bld) 1.1 10*3/uL Normal 1.0-4.3 [facility] Comment on above: Performed By: #### H EMDF, PT, BMP3M, PHOS3, MG3, CK3 #### [address] #### VD25H #### [facility] [address] [place] [address] Lymphocytes/100 WBC (Bld) 6.2 % Low 20.0-40.0 [facility] Comment on above: Performed By: #### H EMDF, PT, BMP3M, PHOS3, MG3, CK3 #### [address] #### VD25H #### [facility] [address] [place] [address] MCH Entitic mass (RBC) 31.1 pg Normal 26.0-34.0 [facility] Comment on above: Performed By: #### H EMDF, PT, BMP3M, PHOS3, MG3, CK3 #### [address] #### VD25H #### [facility] [address] [place] [address] MCHC mass conc (RBC) 34.6 % Normal 32.0-36.0 [facility] Comment on above: Performed By: #### H EMDF, PT, BMP3M, PHOS3, MG3, CK3 #### [address] [place], [place] #### VD25H #### [facility] [address] [place] [address] MCV Entitic volume (RBC) 89.9 fL Normal 80.0-98.0 [facility] Comment on above: Performed By: #### H EMDF, PT, BMP3M, PHOS3, MG3, CK3 #### [address] [place] #### VD25H #### [facility] [address] [place] [address] Monocytes #/vol (Bld) 0.6 10*3/uL Normal 0.0-0.8 [facility] Comment on above: Performed By: #### H EMDF, PT, BMP3M, PHOS3, MG3, CK3 #### [address] [place] #### VD25H #### [facility] [address] [place] [address] Monocytes/100 WBC (Bld) 3.5 % Normal 2.0-10.0 [facility] Comment on above: Performed By: #### H EMDF, PT, BMP3M, PHOS3, MG3, CK3 #### [address] #### VD25H #### [facility] [address] [place] [address] Platelet mean volume Entitic volume (Bld) 7.9 fL Normal 7.4-10.4 [facility] Comment on above: Performed By: #### H EMDF, PT, BMP3M, PHOS3, MG3, CK3 #### [address] #### VD25H #### [facility] [address] [place] [address] Platelets #/vol (Bld) 299 10*3/uL Normal 140-440 [facility] Comment on above: Performed By: #### H EMDF, PT, BMP3M, PHOS3, MG3, CK3 #### [address] #### VD25H #### [facility] [address] [place] [address] RBC #/vol (Bld) 3.52 10*6/uL Low 4.40-5.90 [facility] Comment on above: Performed By: #### H EMDF, PT, BMP3M, PHOS3, MG3, CK3 #### [address] #### VD25H #### [facility] [address] [place] [address] WBC #/vol (Bld) 17.1 10*3/uL High 3.6-10.7 [facility] Comment on above: Performed By: #### H EMDF, PT, BMP3M, PHOS3, MG3, CK3 #### [address] #### VD25H #### [facility] [address] [place] [address] LDH, Body Fluidon 07-22-2018 LDH, Body Fluid 232 U/L Normal No Range [facility] Comment on above: Performed By: #### H EMDF, PT, BMP3M, PHOS3, MG3, CK3 #### [address] #### VD25H #### [facility] [address] [place] [address] Magnesiumon 07-22-2018 Magnesium mass conc 2.6 mg/dL High 1.6-2.3 [facility] Comment on above: Performed By: #### H EMDF, PT, BMP3M, PHOS3, MG3, CK3 #### [address] #### VD25H #### [facility] [address] [place] [address] Medical Cytology 9 Medical Cytology [facility] [id number] DEPARTMENT OF PATHOLOGY AND [facility], [facility]. LABORATORY MEDICINE [address] [place] [address] FINAL MEDICAL CYTOLOGY REPORT NAME: KATHYA HOOPER : 1955 63 Y M BILLING NO.: [id number] LOCATION: 1T2I T2 INPAT T209 PROCEDURE 07/22/2018 01 DATE: [...] characteristics determined by the clinical laboratories of [facility]. They have not [...] negativity on decalcified specimens. Case reviewed at [facility] [address] [place] [address]. DEPARTMENT OF PATHOLOGY AND LABORATORY MEDICINE [place], [place] Normal [facility] Phosphoruson 07-22-2018 Phosphate mass conc 4.6 mg/dL High 2.5-4.5 [facility] Comment on above: Performed By: #### H EMDF, PT, BMP3M, PHOS3, MG3, CK3 #### [address] #### VD25H #### [place] [address] Procalcitoninon 07-22-2018 Protein mass conc 0.27 ng/mL Abnormal <0.[address] [facility] Comment on above: Result Comment: (Cor rect ref.range is <0.09 ng/mL) Test performed: [place], [place]. Performed By: #### H EMDF, PT, BMP3M, PHOS3, MG3, CK3 #### [address] #### VD25H #### [place] [address] Interpretation See Below Normal [facility] Comment on above: Result Comment: PCT <0.50 = Low risk of severe sepsis and/or septic shock. PCT >2.00 = High risk of severe sepsis and/or septic shock. Performed By: #### H EMDF, PT, BMP3M, PHOS3, MG3, CK3 #### [address] #### VD25H #### [address] [place] [address] STAIN ACID-FASTon 07-22-2018 STAIN ACID-FAST STAIN ACID-FAST --> Status: F No acid-fast bacilli seen in smear. - Method: AFB by Kinyoun Stain - Method: AFB by Kinyoun Stain Normal [facility] Comment on above: Performed By: #### H EMDF, PT, BMP3M, PHOS3, MG3, CK3 #### [facility] [address] [place], [place] #### VD25H #### [facility] [address] [place] [address] Triglycerideon 07-22-2018 Triglyceride mass conc 96 mg/dL Normal <150 [facility] Comment on above: Performed By: #### H EMDF, PT, BMP3M, PHOS3, MG3, CK3 #### [facility] [address] [place], [place] #### VD25H #### [facility] [address] [place] [address] US Thora-Aspir Pleura w/ Evelin geon 07-22-2018 US Thora-Aspir Pleura w/ Image Patient Name: KATHYA HOOPER Ultrasound Exam Date/Time 07/22/2018 14:23:28 EDT Exam US Thora-Aspir Pleura w/ Image Ordering Physician MARIA EUGENIA PEREZ Accession Number [id number] CPT4 Codes 63388 () Reason For Exam L thoracentesis Report Reasons for examination: Left pleural effusion. Respiratory insufficiency. Ultrasound was performed of the left hemithorax, localizing the pleural fluid. After obtaining informed consent, sterile preparation, draping, and local anesthetic administration, thoracentesis was performed under direct ultrasonographic guidance with a 5 English Yueh needle/catheter. A total of 300 mL [...] Transcribed Date and Time: 07/22/2018 2:55 Normal [facility] pH,Misc Body Fluidon 019 pH,Misc 7.996 Normal None Available [facility] Comment on above: Performed By: #### H EMDF, PT, BMP3M, PHOS3, MG3, CK3 #### [facility] [address] [place] [address] #### VD25H #### [facility] [address] [place] [address] Arterial Blood Gaseson 07-21 CO2 molar conc 29.8 mmol/L High 23.0-27.0 [facility] Comment on above: Performed By: #### T SGL #### [facility] [address] [place] [address] HCO3 molar conc (Bld) 28.7 mmol/L High 21.0-25.0 [facility] Comment on above: Performed By: #### T SGL #### [address] [address] [place] [address] Hemoglobin mass conc (Bld) 11.7 g/dL Normal ScreenOnly [facility] Comment on above: Performed By: #### T SGL #### [facility] [address] [place] [address] Oxygen ppres (Bld) 144.9 mm[Hg] High 80.0-100.0 [facility] Comment on above: Performed By: #### T SGL #### [address] [place] [address] Oxygen saturation in Blood 98.4 % Normal 95.0-100.0 [facility] Comment on above: Performed By: #### T SGL #### [address] [place] [address] pCO2 36.8 mm[Hg] Normal 35.0-45.0 [facility] Comment on above: Performed By: #### T SGL #### [facility] [address] [place] [address] pH (Bld) 7.510 High 7.350-7.450 [facility] Comment on above: Performed By: #### T SGL #### [facility] [address] [place] [address] Std Base Excess 5.5 mmol/L High -3.0-3.0 [facility] Comment on above: Performed By: #### T SGL #### [facility] [address] [place] [address] FIO2 .50 Normal [facility] Comment on above: Performed By: #### T SGL #### [facility] [address] [place] [address] CR Abdomen APon 07-21-2018 CR Abdomen AP Patient Name: KATHYA HOOPER Diagnostic Radiology Exam Date/Time 07/21/2018 06:41:07 EDT Exam CR Abdomen AP Ordering Physician [id number] [place] JOYA Accession Number [id number] CPT4 Codes 48365 () Reason For Exam ileus Report Reason [...] Transcribed Date and Time: 07/21/2018 7:23 Normal [facility] CR Chest Portableon 07-22-19 19 CR Chest Portable Patient Name: KATHYA HOOPER Diagnostic Radiology Exam Date/Time 07/21/2018 06:40:50 EDT Exam CR Chest Portable Ordering Physician CHRIS MARIA EUGENIA Accession Number [id number] CPT4 Codes 13508 () Reason For Exam ETT placement Report [...] as described above. Report Dictated on Workstation: [id number] Final Dictated: 07/21/2018 5:38 am Dictating Physician: MD BOLAÑOS NICHOLAS Signed Date and Time: 07/21/2018 5:40 am Signed by: MD BOLAÑOS NICHOLAS Transcribed Date and Time: 07/21/2018 5:38 Normal [facility] CR Chest Portable Patient Name: KATHYA HOOPER Diagnostic Radiology Exam Date/Time 07/21/2018 01:11:50 EDT Exam CR Chest Portable Ordering Physician MD GRIFFIN NICHOLAS Accession Number [id number] CPT4 Codes 47673 () Reason For Exam s/p bronch Report [...] Transcribed Date and Time: 07/21/2018 1:26 Normal [facility] Comp Metabolic Panelon 07-21 Calcium mass conc 7.9 mg/dL Low 8.4-10.4 [facility] Comment on above: Performed By: #### T SGL #### [facility] [address] [place] [address] ALP enzyme act/vol 85 U/L Normal 38-126 [facility] Comment on above: Performed By: #### T SGL #### [facility] [address] [place] [address] ALT enzyme act/vol 105 U/L High 13-69 [facility] Comment on above: Performed By: #### T SGL #### [address] [place] [address] Anion gap molar conc 8 Normal [facility] Comment on above: Performed By: #### T SGL #### [facility] [address] [place] [address] AST enzyme act/vol 78 U/L High 15-46 [facility] Comment on above: Performed By: #### T SGL #### [facility] [address] [place] [address] Bilirubin mass conc 1.1 mg/dL Normal 0.2-1.3 [facility] Comment on above: Performed By: #### T SGL #### [facility] [address] [place] [address] CO2 molar conc 33 mmol/L High 22-30 [facility] Comment on above: Performed By: #### T SGL #### [facility] [address] [place] [address] Creatinine mass conc 0.90 mg/dL Normal 0.52-1.25 [facility] Comment on above: Performed By: #### T SGL #### [facility] [address] [place] [address] GFR/1.73 sq M predicted among blacks MDRD vol rate/area (S/P/Bld) mL/min/{1.73_m2} Normal >60 [facility] Comment on above: Performed By: #### T SGL #### [facility] [address] [place] [address] GFR/1.73 sq M predicted among non-blacks MDRD vol rate/area (S/P/Bld) mL/min/{1.73_m2} Normal >[address] [facility] Comment on above: Result Comment: Sour ce- MDRD equation with creatinine calibration to IDMS(NKDEP) eGFR not recommended for drug dose adjustment Performed By: #### T SGL #### [address] [place] [address] Glucose mass conc 113 mg/dL High 70-[address] [facility] Comment on above: Performed By: #### T SGL #### [address] [place] [address] Protein mass conc 5.6 g/dL Low 6.3-8.[address] [facility] Comment on above: Performed By: #### T SGL #### [address] [place] [address] Urea nitrogen mass conc 28 mg/dL High 7-20 [facility] Comment on above: Performed By: #### T SGL #### [address] [place] [address] Chloride molar conc 104 mmol/L Normal 98-107 [facility] Comment on above: Performed By: #### T SGL #### [address] [place] [address] Potassium molar conc 3.6 mmol/L Normal 3.5-5.1 [facility] Comment on above: Performed By: #### T SGL #### [address] [place] [address] Sodium molar conc 145 mmol/L Normal 135-[address] [facility] Comment on above: Performed By: #### T SGL #### [facility] [address] [place] [address] Albumin mass conc 2.8 g/dL Low 3.5-5.0 [facility] Comment on above: Performed By: #### T SGL #### [facility] [address] [place] [address] Glucose,Bedsideon 07-21-2018 Glucose mass conc 124 mg/dL High 70-100 [facility] Comment on above: Result Comment: Test performed by glucose meter. Results may be 10%-15% lower than serum/plasma values. (CLIA ID [id number]) Performed By: #### H EMDF, PT, BMP3M, PHOS3, MG3, CK3 #### [facility] [address] [place] [phone] #### VD25H #### [facility] [address] [place] [address] Glucose mass conc 151 mg/dL High 70-100 [facility] Comment on above: Result Comment: Test performed by glucose meter. Results may be 10%-15% lower than serum/plasma values. (CLIA ID [id number]) Performed By: #### H EMDF, PT, BMP3M, PHOS3, MG3, CK3 #### [facility] [address] [place] [phone] #### VD25H #### [facility] [address] [place] [address] Glucose mass conc 127 mg/dL High 70-100 [facility] Comment on above: Result Comment: Test performed by glucose meter. Results may be 10%-15% lower than serum/plasma values. (CLIA ID [id number]) Performed By: #### T SGL #### [facility] [place] [address] Glucose mass conc 113 mg/dL High 70-100 [facility] Comment on above: Result Comment: Test performed by glucose meter. Results may be 10%-15% lower than serum/plasma values. (CLIA ID [id number]) Performed By: #### A DDON #### [address] [place] [address] Hemogram w/ Autodiffon 07-21 Abs Baso Cnt 0.1 10*3/uL Normal 0.0-0.2 [facility] Comment on above: Performed By: #### T SGL #### [address] [place] [address] Abs Neutrophile Cnt 11.0 10*3/uL High 1.8-7.0 [facility] Comment on above: Performed By: #### T SGL #### [address] [address] Basophils/100 WBC (Bld) 0.5 % Normal 0.0-2.0 [facility] Comment on above: Performed By: #### T SGL #### [address] [address] Eosinophils #/vol (Bld) 0.3 10*3/uL Normal 0.0-0.5 [facility] Comment on above: Performed By: #### T SGL #### [address] [address] Eosinophils/100 WBC (Bld) 1.9 % Normal 1.0-6.0 [facility] Comment on above: Performed By: #### T SGL #### [address] [address] Erythrocyte distribution width Ratio (RBC) 13.7 % Normal 11.5-14.5 [facility] Comment on above: Performed By: #### T SGL #### [address] [address] Granulocytes/100 WBC (Bld) 81.0 % High 40.0-80.0 [facility] Comment on above: Performed By: #### T SGL #### [address] [address] Hematocrit Volume Fraction (Bld) 32.1 % Low 40.0-52.0 [facility] Comment on above: Performed By: #### T SGL #### [address] [place] [address] Hemoglobin mass conc (Bld) 10.7 g/dL Low 13.0-18.0 [facility] Comment on above: Performed By: #### T SGL #### [address] [place] [address] Lymphocytes #/vol (Bld) 1.3 10*3/uL Normal 1.0-4.3 [facility] Comment on above: Performed By: #### T SGL #### [address] [place] [address] Lymphocytes/100 WBC (Bld) 9.8 % Low 20.0-40.0 [facility] Comment on above: Performed By: #### T SGL #### [address] [place] [address] MCH Entitic mass (RBC) 29.0 pg Normal 26.0-34.0 [facility] Comment on above: Performed By: #### T SGL #### [address] [place] [address] MCHC mass conc (RBC) 33.4 % Normal 32.0-36.0 [facility] Comment on above: Performed By: #### T SGL #### [address] [place] [address] MCV Entitic volume (RBC) 86.9 fL Normal 80.0-98.0 [facility] Comment on above: Performed By: #### T SGL #### [address] [address] Monocytes #/vol (Bld) 0.9 10*3/uL High 0.0-0.8 [facility] Comment on above: Performed By: #### T SGL #### [address] [place] [address] Monocytes/100 WBC (Bld) 6.8 % Normal 2.0-10.0 [facility] Comment on above: Performed By: #### T SGL #### [address] [place] [address] Platelet mean volume Entitic volume (Bld) 7.4 fL Normal 7.4-10.4 [facility] Comment on above: Performed By: #### T SGL #### [address] [place] [address] Platelets #/vol (Bld) 367 10*3/uL Normal 140-440 [facility] Comment on above: Performed By: #### T SGL #### [address] [place] [address] RBC #/vol (Bld) 3.69 10*6/uL Low 4.40-5.[address] [facility] Comment on above: Performed By: #### T SGL #### [address] [place] [address] WBC #/vol (Bld) 13.6 10*3/uL High 3.6-10.[address] [facility] Comment on above: Performed By: #### T SGL #### [address] [place] [address] Magnesiumon 07-21-2018 Magnesium mass conc 2.6 mg/dL High 1.6-2.3 [facility] Comment on above: Performed By: #### T SGL #### [address] [place] [address] Phosphoruson 07-21-2018 Phosphate mass conc 4.2 mg/dL Normal 2.5-4.5 [facility] Comment on above: Performed By: #### T SGL #### [address] [place] [address] Triglycerideon 07-21-2018 Triglyceride mass conc 105 mg/dL Normal <150 [facility] Comment on above: Performed By: #### T SGL #### [address] [place] [address] Add on test from HISon 07-20 Add on test from HIS Accepted Normal [facility] Comment on above: Result Comment: Spec imen available & acceptable for analysis. Performed By: #### A DDON #### [address] [place] [address] Basic Metabolic Panelon 06-30 Calcium mass conc 7.7 mg/dL Low 8.4-10.[address] [facility] Comment on above: Performed By: #### A DDON #### [facility] [address] [place] [facility] [place] [address] Glucose mass conc 96 mg/dL Normal 70-[address] [facility] Comment on above: Performed By: #### A DDON #### [facility] [address] [place] [address] Urea nitrogen mass conc 22 mg/dL High 7-20 [facility] Comment on above: Performed By: #### A DDON #### [facility] [address] [place] [place] [address] Anion gap molar conc 10 Normal [facility] Comment on above: Performed By: #### A DDON #### [facility] [address] [place] [address] CO2 molar conc 29 mmol/L Normal 22-30 [facility] Comment on above: Performed By: #### A DDON #### [facility] [address] [place] [place] [address] Creatinine mass conc 0.87 mg/dL Normal 0.52-1.25 [facility] Comment on above: Performed By: #### A DDON #### [facility] [address] [place] [place] [address] GFR/1.73 sq M predicted among blacks MDRD vol rate/area (S/P/Bld) mL/min/{1.73_m2} Normal >60 [facility] Comment on above: Performed By: #### A DDON #### [facility] [address] [place] [place] [address] GFR/1.73 sq M predicted among non-blacks MDRD vol rate/area (S/P/Bld) mL/min/{1.73_m2} Normal >[address] [facility] Comment on above: Result Comment: Sour ce- MDRD equation with creatinine calibration to IDMS(NKDEP) eGFR not recommended for drug dose adjustment Performed By: #### A DDON #### [facility] [address] [place] [place] [address] Potassium molar conc 3.6 mmol/L Normal 3.5-5.1 [facility] Comment on above: Performed By: #### A DDON #### [facility] [address] [place] [address] Chloride molar conc 105 mmol/L Normal 98-107 [facility] Comment on above: Performed By: #### A DDON #### [facility] [address] [place] [place] [address] Sodium molar conc 144 mmol/L Normal 135-[address] [facility] Comment on above: Performed By: #### A DDON #### [facility] [address] [place] [place] [address] CR Abdomen APon 07-20-2018 CR Abdomen AP Patient Name: KATHYA HOOPER Diagnostic Radiology Exam Date/Time 07/20/2018 08:39:45 EDT Exam CR Abdomen AP Ordering Physician JOYA ROJAS Accession Number [id number] CPT4 Codes 66430 () Reason For Exam ileus Report Clinical [...] Transcribed Date and Time: 07/20/2018 9:29 Normal [facility] CR Chest Portableon 07-21-19 19 CR Chest Portable Patient Name: KATHYA HOOPER Diagnostic Radiology Exam Date/Time 07/20/2018 08:39:26 EDT Exam CR Chest Portable Ordering Physician MARIA EUGENIA PEREZ Accession Number [id number] CPT4 Codes 49635 () Reason For Exam ETT placement Report [...] Transcribed Date and Time: 07/20/2018 9:28 Normal [facility] CT Abdomen/Pelvis w/ Contras ton 07-20-2018 CT Abdomen/Pelvis w/ Contrast Patient Name: KATHYA HOOPER CT Exam Date/Time 07/20/2018 11:30:[address] Abdomen/Pelvis w/ IV Contrast (IV Onl Ordering Physician [id number] CARRILLOZ PAHALA Accession Number [id number] CPT4 Codes 63101 (CT Abdomen/Pelvis w/ IV Contrast (IV Onl) [...] Transcribed Date and Time: 07/20/2018 1:10 Normal [facility] CT Chest w/ Contraston 07-20 CT Chest w/ Contrast Patient Name: KATHYA RAY CT Exam Date/Time 07/20/2018 11:30:[address] Chest w/ Contrast Ordering Physician [id number] -ERZJOYA Accession Number [id number] CPT4 Codes 30172 (), Q9967 (CT ISOVUE [id number]) Reason For Exam SOB, possible pneumonia Report [...] Transcribed Date and Time: 07/20/2018 1:28 Normal [facility] Glucose,Bedsideon 07-20-2018 Glucose mass conc 128 mg/dL High 70-[address] [facility] Comment on above: Result Comment: Test performed by glucose meter. Results may be 10%-15% lower than serum/plasma values. (CLIA ID [id number]) Performed By: #### A DDON #### [facility] [address] [place], [place] Hemogram w/ Autodiffon 07-20 Abs Baso Cnt 0.1 10*3/uL Normal 0.0-0.2 [facility] Comment on above: Performed By: #### H EMDF, PT, BMP3M, PHOS3, MG3, CK3 #### [place] [address] [place], [place] #### VD25H #### [facility] [address] [place] [address] Abs Neutrophile Cnt 13.0 10*3/uL High 1.8-7.0 [facility] Comment on above: Performed By: #### H EMDF, PT, BMP3M, PHOS3, MG3, CK3 #### [facility] [address] [place], [place] #### VD25H #### [facility] [address] [place] [address] Basophils/100 WBC (Bld) 0.3 % Normal 0.0-2.0 [facility] Comment on above: Performed By: #### H EMDF, PT, BMP3M, PHOS3, MG3, CK3 #### [address] #### VD25H #### [facility] [address] [place] [address] Eosinophils #/vol (Bld) 0.3 10*3/uL Normal 0.0-0.5 [facility] Comment on above: Performed By: #### H EMDF, PT, BMP3M, PHOS3, MG3, CK3 #### [facility] [address] [place], [place] #### VD25H #### [facility] [address] [place] [address] Eosinophils/100 WBC (Bld) 1.9 % Normal 1.0-6.0 [facility] Comment on above: Performed By: #### H EMDF, PT, BMP3M, PHOS3, MG3, CK3 #### [address] #### VD25H #### [facility] [address] [place] [address] Erythrocyte distribution width Ratio (RBC) 13.3 % Normal 11.5-14.5 [facility] Comment on above: Performed By: #### H EMDF, PT, BMP3M, PHOS3, MG3, CK3 #### [address] #### VD25H #### [facility] [address] [place] [address] Granulocytes/100 WBC (Bld) 81.8 % High 40.0-80.0 [facility] Comment on above: Performed By: #### H EMDF, PT, BMP3M, PHOS3, MG3, CK3 #### [address] #### VD25H #### [facility] [address] [place] [address] Hematocrit Volume Fraction (Bld) 33.6 % Low 40.0-52.0 [facility] Comment on above: Performed By: #### H EMDF, PT, BMP3M, PHOS3, MG3, CK3 #### [address] #### VD25H #### [facility] [address] [place] [address] Hemoglobin mass conc (Bld) 11.4 g/dL Low 13.0-18.0 [facility] Comment on above: Performed By: #### H EMDF, PT, BMP3M, PHOS3, MG3, CK3 #### [address] #### VD25H #### [facility] [address] [place] [place] [address] Lymphocytes #/vol (Bld) 1.5 10*3/uL Normal 1.0-4.3 [facility] Comment on above: Performed By: #### H EMDF, PT, BMP3M, PHOS3, MG3, CK3 #### [address] [place], [place] #### VD25H #### [facility] [address] [place] [address] Lymphocytes/100 WBC (Bld) 9.2 % Low 20.0-40.0 [facility] Comment on above: Performed By: #### H EMDF, PT, BMP3M, PHOS3, MG3, CK3 #### [address] #### VD25H #### [facility] [address] [place] [address] MCH Entitic mass (RBC) 29.3 pg Normal 26.0-34.0 [facility] Comment on above: Performed By: #### H EMDF, PT, BMP3M, PHOS3, MG3, CK3 #### [address] #### VD25H #### [facility] [address] [place] [address] MCHC mass conc (RBC) 33.9 % Normal 32.0-36.0 [facility] Comment on above: Performed By: #### H EMDF, PT, BMP3M, PHOS3, MG3, CK3 #### [address] #### VD25H #### [facility] [address] [place] [address] MCV Entitic volume (RBC) 86.5 fL Normal 80.0-98.0 [facility] Comment on above: Performed By: #### H EMDF, PT, BMP3M, PHOS3, MG3, CK3 #### [address] [place], [place] #### VD25H #### [facility] [address] [place] [address] Monocytes #/vol (Bld) 1.1 10*3/uL High 0.0-0.8 [facility] Comment on above: Performed By: #### H EMDF, PT, BMP3M, PHOS3, MG3, CK3 #### [address] #### VD25H #### [facility] [address] [place] [address] Monocytes/100 WBC (Bld) 6.8 % Normal 2.0-10.0 [facility] Comment on above: Performed By: #### H EMDF, PT, BMP3M, PHOS3, MG3, CK3 #### [address] #### VD25H #### [facility] [address] [place] [address] Platelet mean volume Entitic volume (Bld) 7.5 fL Normal 7.4-10.4 [facility] Comment on above: Performed By: #### H EMDF, PT, BMP3M, PHOS3, MG3, CK3 #### [address] #### VD25H #### [facility] [address] [place] [address] Platelets #/vol (Bld) 375 10*3/uL Normal 140-440 [facility] Comment on above: Performed By: #### H EMDF, PT, BMP3M, PHOS3, MG3, CK3 #### [address] #### VD25H #### [place] [address] [place] [address] RBC #/vol (Bld) 3.88 10*6/uL Low 4.40-5.90 [facility] Comment on above: Performed By: #### H EMDF, PT, BMP3M, PHOS3, MG3, CK3 #### [address] [address] [place], [place] #### VD25H #### [facility] [address] [place] [address] WBC #/vol (Bld) 15.9 10*3/uL High 3.6-10.7 [facility] Comment on above: Performed By: #### H EMDF, PT, BMP3M, PHOS3, MG3, CK3 #### [address] #### VD25H #### [facility] [address] [place] [address] Phosphoruson 07-20-2018 Phosphate mass conc 5.5 mg/dL High 2.5-4.5 [facility] Comment on above: Performed By: #### A DDON #### [address] Add on test from HISon 07-19 Add on test from HIS Accepted Normal [facility] Comment on above: Result Comment: Spec imen available & acceptable for analysis. Performed By: #### H EMDF, PT, BMP3M, PHOS3, MG3, CK3 #### [address] #### VD25H #### [facility] [address] [place] [address] Arterial Blood Gaseson 07-19 CO2 molar conc 31.5 mmol/L High 23.0-27.0 [facility] Comment on above: Performed By: #### H EMDF, PT, BMP3M, PHOS3, MG3, CK3 #### [address] #### VD25H #### [facility] [address] [place] [address] HCO3 molar conc (Bld) 30.2 mmol/L High 21.0-25.0 [facility] Comment on above: Performed By: #### H EMDF, PT, BMP3M, PHOS3, MG3, CK3 #### [address] [place] [address] #### VD25H #### [facility] [address] [place] [address] Hemoglobin mass conc (Bld) 11.7 g/dL Normal [facility] Comment on above: Performed By: #### H EMDF, PT, BMP3M, PHOS3, MG3, CK3 #### [address] #### VD25H #### [facility] [address] [place] [address] Oxygen ppres (Bld) 85.1 mm[Hg] Normal 80.0-100.0 [facility] Comment on above: Performed By: #### H EMDF, PT, BMP3M, PHOS3, MG3, CK3 #### [address] #### VD25H #### [facility] [address] [place] [address] Oxygen saturation in Blood 95.9 % Normal 95.0-100.0 [facility] Comment on above: Performed By: #### H EMDF, PT, BMP3M, PHOS3, MG3, CK3 #### [address] #### VD25H #### [facility] [address] [place] [address] pCO2 43.6 mm[Hg] Normal 35.0-45.0 [facility] Comment on above: Performed By: #### H EMDF, PT, BMP3M, PHOS3, MG3, CK3 #### [address] #### VD25H #### [facility] [address] [place] [address] pH (Bld) 7.458 High 7.350-7.450 [facility] Comment on above: Performed By: #### H EMDF, PT, BMP3M, PHOS3, MG3, CK3 #### [facility] [address] [place], [place] #### VD25H #### [facility] [address] [place] [address] Std Base Excess 5.7 mmol/L High -3.0-3.0 [facility] Comment on above: Performed By: #### H EMDF, PT, BMP3M, PHOS3, MG3, CK3 #### [address] [address] [place] #### VD25H #### [facility] [address] [place] [address] FIO2 40% Normal [facility] Comment on above: Performed By: #### H EMDF, PT, BMP3M, PHOS3, MG3, CK3 #### [address] [address] [place] #### VD25H #### [facility] [address] [place] [address] Basic Metabolic Panelon 03-2 Calcium mass conc 7.5 mg/dL Low 8.4-10.4 [facility] Comment on above: Performed By: #### H EMDF, PT, BMP3M, PHOS3, MG3, CK3 #### [facility] [address] [place] #### VD25H #### [facility] [address] [place] [address] Glucose mass conc 274 mg/dL High 70-100 [facility] Comment on above: Performed By: #### H EMDF, PT, BMP3M, PHOS3, MG3, CK3 #### [address] [place] #### VD25H #### [facility] [address] [place] [address] Anion gap molar conc 6 Normal [facility] Comment on above: Performed By: #### H EMDF, PT, BMP3M, PHOS3, MG3, CK3 #### [address] [address] #### VD25H #### [facility] [address] [place] [address] CO2 molar conc 31 mmol/L High 22-30 [facility] Comment on above: Performed By: #### H EMDF, PT, BMP3M, PHOS3, MG3, CK3 #### [address] [address] #### VD25H #### [facility] [address] [place] [address] Creatinine mass conc 0.64 mg/dL Normal 0.52-1.25 [facility] Comment on above: Performed By: #### H EMDF, PT, BMP3M, PHOS3, MG3, CK3 #### [address] [address] #### VD25H #### [facility] [address] [place] [address] GFR/1.73 sq M predicted among blacks MDRD vol rate/area (S/P/Bld) mL/min/{1.73_m2} Normal >60 [facility] Comment on above: Performed By: #### H EMDF, PT, BMP3M, PHOS3, MG3, CK3 #### [address] [address] #### VD25H #### [facility] [address] [place] [address] GFR/1.73 sq M predicted among non-blacks MDRD vol rate/area (S/P/Bld) mL/min/{1.73_m2} Normal >[address] [facility] Comment on above: Result Comment: Sour ce- MDRD equation with creatinine calibration to IDMS(NKDEP) eGFR not recommended for drug dose adjustment Performed By: #### H EMDF, PT, BMP3M, PHOS3, MG3, CK3 #### [address] [place] [address] #### VD25H #### [facility] [address] [place] [address] Urea nitrogen mass conc 15 mg/dL Normal 7-20 [facility] Comment on above: Performed By: #### H EMDF, PT, BMP3M, PHOS3, MG3, CK3 #### [place] [address] [place] #### VD25H #### [facility] [address] [place] [address] Chloride molar conc 105 mmol/L Normal 98-107 [facility] Comment on above: Performed By: #### H EMDF, PT, BMP3M, PHOS3, MG3, CK3 #### [place] [address] [place] #### VD25H #### [facility] [address] [place] [address] Potassium molar conc 4.3 mmol/L Normal 3.5-5.1 [facility] Comment on above: Performed By: #### H EMDF, PT, BMP3M, PHOS3, MG3, CK3 #### [place] [address] [address] [facility] #### VD25H #### [facility] [address] [place] [address] Sodium molar conc 141 mmol/L Normal 135-145 [facility] Comment on above: Performed By: #### H EMDF, PT, BMP3M, PHOS3, MG3, CK3 #### [address] [place] [place] [address] #### VD25H #### [facility] [address] [place] [address] CR Abdomen APon 07-19-2018 CR Abdomen AP Patient Name: KATHYA HOOPER Diagnostic Radiology Exam Date/Time 07/19/2018 06:44:12 EDT Exam CR Abdomen AP Ordering Physician JOYA ROJAS Accession Number [id number] CPT4 Codes 05589 () Reason For Exam ileus Report Abdomen: [...] Transcribed Date and Time: 07/19/2018 7:46 Normal [facility] CR Chest Portableon 07-20-19 19 CR Chest Portable Patient Name: KATHYA HOOPER Diagnostic Radiology Exam Date/Time 07/19/2018 06:43:52 EDT Exam CR Chest Portable Ordering Physician MARIA EUGENIA PEREZ Accession Number [id number] CPT4 Codes 73185 () Reason For Exam ETT placement Report [...] Transcribed Date and Time: 07/19/2018 7:44 Normal [facility] Glucose,Bedsideon 07-19-2018 Glucose mass conc 95 mg/dL Normal 70-[address] [facility] Comment on above: Result Comment: Test performed by glucose meter. Results may be 10%-15% lower than serum/plasma values. (CLIA ID [id number]) Performed By: #### H EMDF, PT, BMP3M, PHOS3, MG3, CK3 #### [address] #### VD25H #### [facility] [address] [place] [address] Hemogram w/ Autodiffon 07-19 Abs Baso Cnt 0.1 10*3/uL Normal 0.0-0.2 [facility] Comment on above: Performed By: #### H EMDF, PT, BMP3M, PHOS3, MG3, CK3 #### [address] #### VD25H #### [facility] [address] [place] [address] Abs Neutrophile Cnt 9.8 10*3/uL High 1.8-7.0 [facility] Comment on above: Performed By: #### H EMDF, PT, BMP3M, PHOS3, MG3, CK3 #### [address] #### VD25H #### [facility] [address] [place] [address] Basophils/100 WBC (Bld) 0.5 % Normal 0.0-2.0 [facility] Comment on above: Performed By: #### H EMDF, PT, BMP3M, PHOS3, MG3, CK3 #### [address] #### VD25H #### [facility] [address] [place] [address] Eosinophils #/vol (Bld) 0.3 10*3/uL Normal 0.0-0.5 [facility] Comment on above: Performed By: #### H EMDF, PT, BMP3M, PHOS3, MG3, CK3 #### [address] #### VD25H #### [facility] [address] [place] [address] Eosinophils/100 WBC (Bld) 2.5 % Normal 1.0-6.0 [facility] Comment on above: Performed By: #### H EMDF, PT, BMP3M, PHOS3, MG3, CK3 #### [address] #### VD25H #### [facility] [address] [place] [address] Erythrocyte distribution width Ratio (RBC) 13.3 % Normal 11.5-14.5 [facility] Comment on above: Performed By: #### H EMDF, PT, BMP3M, PHOS3, MG3, CK3 #### [address] #### VD25H #### [facility] [address] [place] [address] Granulocytes/100 WBC (Bld) 80.4 % High 40.0-80.0 [facility] Comment on above: Performed By: #### H EMDF, PT, BMP3M, PHOS3, MG3, CK3 #### [address] #### VD25H #### [facility] [address] [place] [address] Hematocrit Volume Fraction (Bld) 30.6 % Low 40.0-52.0 [facility] Comment on above: Performed By: #### H EMDF, PT, BMP3M, PHOS3, MG3, CK3 #### [address] #### VD25H #### [facility] [address] [place] [address] Hemoglobin mass conc (Bld) 10.5 g/dL Low 13.0-18.0 [facility] Comment on above: Performed By: #### H EMDF, PT, BMP3M, PHOS3, MG3, CK3 #### [address] #### VD25H #### [facility] [address] [place] [address] Lymphocytes #/vol (Bld) 1.1 10*3/uL Normal 1.0-4.3 [facility] Comment on above: Performed By: #### H EMDF, PT, BMP3M, PHOS3, MG3, CK3 #### [address] #### VD25H #### [facility] [address] [place] [address] Lymphocytes/100 WBC (Bld) 9.1 % Low 20.0-40.0 [facility] Comment on above: Performed By: #### H EMDF, PT, BMP3M, PHOS3, MG3, CK3 #### [address] #### VD25H #### [place] [address] [place] [address] MCH Entitic mass (RBC) 29.7 pg Normal 26.0-34.0 [facility] Comment on above: Performed By: #### H EMDF, PT, BMP3M, PHOS3, MG3, CK3 #### [address] #### VD25H #### [place] [address] [place] [address] MCHC mass conc (RBC) 34.3 % Normal 32.0-36.0 [facility] Comment on above: Performed By: #### H EMDF, PT, BMP3M, PHOS3, MG3, CK3 #### [address] #### VD25H #### [place] [address] [place] [address] MCV Entitic volume (RBC) 86.7 fL Normal 80.0-98.0 [facility] Comment on above: Performed By: #### H EMDF, PT, BMP3M, PHOS3, MG3, CK3 #### [address], [place] #### VD25H #### [facility] [address] [place] [address] Monocytes #/vol (Bld) 0.9 10*3/uL High 0.0-0.8 [facility] Comment on above: Performed By: #### H EMDF, PT, BMP3M, PHOS3, MG3, CK3 #### [address] [place], [place] #### VD25H #### [facility] [address] [place] [address] Monocytes/100 WBC (Bld) 7.5 % Normal 2.0-10.0 [facility] Comment on above: Performed By: #### H EMDF, PT, BMP3M, PHOS3, MG3, CK3 #### [address] #### VD25H #### [facility] [address] [place] [address] Platelet mean volume Entitic volume (Bld) 7.3 fL Low 7.4-10.4 [facility] Comment on above: Performed By: #### H EMDF, PT, BMP3M, PHOS3, MG3, CK3 #### [address] #### VD25H #### [facility] [address] [place] [address] Platelets #/vol (Bld) 329 10*3/uL Normal 140-440 [facility] Comment on above: Performed By: #### H EMDF, PT, BMP3M, PHOS3, MG3, CK3 #### [address] #### VD25H #### [facility] [address] [place] [address] RBC #/vol (Bld) 3.53 10*6/uL Low 4.40-5.[address] [facility] Comment on above: Performed By: #### H EMDF, PT, BMP3M, PHOS3, MG3, CK3 #### [address] #### VD25H #### [facility] [address] [place] [address] WBC #/vol (Bld) 12.2 10*3/uL High 3.6-10.[address] [facility] Comment on above: Performed By: #### H EMDF, PT, BMP3M, PHOS3, MG3, CK3 #### [address] #### VD25H #### [facility] [address] [place] [address] Magnesiumon 07-19-2018 Magnesium mass conc 2.3 mg/dL Normal 1.6-2.3 [facility] Comment on above: Performed By: #### H EMDF, PT, BMP3M, PHOS3, MG3, CK3 #### [address] #### VD25H #### [address] [place] [address] Procalcitoninon 07-19-2018 Protein mass conc 0.15 ng/mL Abnormal <0.[address] [facility] Comment on above: Performed By: #### H EMDF, PT, BMP3M, PHOS3, MG3, CK3 #### [address] #### VD25H #### [facility] [address] [place] [address] Interpretation See Below Normal [facility] Comment on above: Result Comment: PCT <0.50 = Low risk of severe sepsis and/or septic shock. PCT >2.00 = High risk of severe sepsis and/or septic shock. Performed By: #### H EMDF, PT, BMP3M, PHOS3, MG3, CK3 #### [address] #### VD25H #### [address] [place] [address] VL Venous Duplex US Lower Ex t Bilateralon 07-19-2018 VL Venous Duplex US Lower Ext Bilateral Patient Name: KATHYA HOOPER Ultrasound Exam Date/Time 07/19/2018 11:10:14 EDT Exam VL Venous Duplex US Lower Ext Bilateral Ordering Physician ETIENNE MARTÍNEZ JULIE Accession Number [id number] CPT4 Codes 13840 () Reason For Exam edema Report [facility] --- Lower Extremity Venous Duplex Report Patient Name: Kathya Hooper : 1955 Study Date: 07/19/2018 W (63yrs) Age: 63 Account: [id number] Gender: M Loc: [id number] BP: Ordering: Yesenia Martínez Technologist: Ordering Physician: Yesenia Martínez Willow Worker: León Chaidez RVT, [facility] Interpreting Physician: Ricardo Hall MD --- Location: [facility] --- INDICATIONS: Edema. bilateral calf edema. [...] performed. The images were obtained using a [employer] E9 vascular ultrasound machine. --- VENOUS FLOW [...] --+ Electronically signed by: Ricardo Hall MD [id number] Final Dictated: 07/20/2018 10:49 am Dictating Physician: RICARDO HALL Signed Date and Time: 07/19/2018 11:03 am Signed by: RICARDO HALL [facility] [employer] [facility] Basic Metabolic Panelon 06-30 Calcium mass conc 7.9 mg/dL Low 8.4-10.4 [facility] Comment on above: Performed By: #### H EMDF, PT, BMP3M, PHOS3, MG3, CK3 #### [facility] [address] [facility] [place] [address] #### VD25H #### [facility] [address] [place] [address] Glucose mass conc 113 mg/dL High 70-[address] [facility] Comment on above: Performed By: #### H EMDF, PT, BMP3M, PHOS3, MG3, CK3 #### [place] [address] [address] [place] [address] #### VD25H #### [facility] [address] [place] [address] Anion gap molar conc 7 Normal [facility] Comment on above: Performed By: #### H EMDF, PT, BMP3M, PHOS3, MG3, CK3 #### [place] [address] [place] [address] #### VD25H #### [facility] [address] [place] [address] CO2 molar conc 31 mmol/L High 22-30 [facility] Comment on above: Performed By: #### H EMDF, PT, BMP3M, PHOS3, MG3, CK3 #### [place] [address] [place] [address] #### VD25H #### [facility] [address] [place] [address] Creatinine mass conc 0.59 mg/dL Normal 0.52-1.25 [facility] Comment on above: Performed By: #### H EMDF, PT, BMP3M, PHOS3, MG3, CK3 #### [place] [address] [place] [address] #### VD25H #### [facility] [address] [place] [address] GFR/1.73 sq M predicted among blacks MDRD vol rate/area (S/P/Bld) mL/min/{1.73_m2} Normal >60 [facility] Comment on above: Performed By: #### H EMDF, PT, BMP3M, PHOS3, MG3, CK3 #### [facility] [address] [facility] #### VD25H #### [facility] [address] [place] [address] GFR/1.73 sq M predicted among non-blacks MDRD vol rate/area (S/P/Bld) mL/min/{1.73_m2} Normal >60 [facility] Comment on above: Result Comment: Sour ce- MDRD equation with creatinine calibration to IDMS(NKDEP) eGFR not recommended for drug dose adjustment Performed By: #### H EMDF, PT, BMP3M, PHOS3, MG3, CK3 #### [place] [address] [address] [facility], [place] #### VD25H #### [facility] [address] [place] [address] Urea nitrogen mass conc 19 mg/dL Normal 7-20 [facility] Comment on above: Performed By: #### H EMDF, PT, BMP3M, PHOS3, MG3, CK3 #### [place] [address] [facility] [place] #### VD25H #### [facility] [address] [place] [address] Chloride molar conc 104 mmol/L Normal 98-107 [facility] Comment on above: Performed By: #### H EMDF, PT, BMP3M, PHOS3, MG3, CK3 #### [facility] [address] [facility] [place] #### VD25H #### [facility] [address] [place] [address] Potassium molar conc 3.4 mmol/L Low 3.5-5.1 [facility] Comment on above: Performed By: #### H EMDF, PT, BMP3M, PHOS3, MG3, CK3 #### [place] [address] [address] [facility] [place] #### VD25H #### [facility] [address] [place] [address] Sodium molar conc 142 mmol/L Normal 135-[address] [facility] Comment on above: Performed By: #### H EMDF, PT, BMP3M, PHOS3, MG3, CK3 #### [facility] [address] [facility] [place] [address] #### VD25H #### [facility] [address] [place] [address] CR Abdomen APon 07-18-2018 CR Abdomen AP Patient Name: KATHYA HOOPER Diagnostic Radiology Exam Date/Time 07/18/2018 06:52:18 EDT Exam CR Abdomen AP Ordering Physician JOYA ROJAS Accession Number [id number] CPT4 Codes 34869 () Reason For Exam ileus Report CLINICAL [...] Transcribed Date and Time: 07/18/2018 2:33 Normal [facility] CR Chest Portableon 07-19-19 19 CR Chest Portable Patient Name: KATHYA HOOPER Diagnostic Radiology Exam Date/Time 07/18/2018 06:52:50 EDT Exam CR Chest Portable Ordering Physician MARIA EUGENIA PEREZ Accession Number [id number] CPT4 Codes 98569 () Reason For Exam ETT placement Report [...] Transcribed Date and Time: 07/18/2018 2:32 Normal [facility] Hemogram w/ Autodiffon 07-18 Abs Baso Cnt 0.0 10*3/uL Normal 0.0-0.2 [facility] Comment on above: Performed By: #### H EMDF, PT, BMP3M, PHOS3, MG3, CK3 #### [facility] [address] [place] [address] #### VD25H #### [facility] [address] [place] [address] Abs Neutrophile Cnt 8.6 10*3/uL High 1.8-7.0 [facility] Comment on above: Performed By: #### H EMDF, PT, BMP3M, PHOS3, MG3, CK3 #### [facility] [address] [place] [address] #### VD25H #### [facility] [address] [place] [address] Basophils/100 WBC (Bld) 0.4 % Normal 0.0-2.0 [facility] Comment on above: Performed By: #### H EMDF, PT, BMP3M, PHOS3, MG3, CK3 #### [address] #### VD25H #### [facility] [address] [place] [address] Eosinophils #/vol (Bld) 0.2 10*3/uL Normal 0.0-0.5 [facility] Comment on above: Performed By: #### H EMDF, PT, BMP3M, PHOS3, MG3, CK3 #### [address] [place], [place] #### VD25H #### [facility] [address] [place] [address] Eosinophils/100 WBC (Bld) 2.1 % Normal 1.0-6.0 [facility] Comment on above: Performed By: #### H EMDF, PT, BMP3M, PHOS3, MG3, CK3 #### [address] #### VD25H #### [facility] [address] [place] [address] Erythrocyte distribution width Ratio (RBC) 13.4 % Normal 11.5-14.5 [facility] Comment on above: Performed By: #### H EMDF, PT, BMP3M, PHOS3, MG3, CK3 #### [address] #### VD25H #### [facility] [address] [place] [address] Granulocytes/100 WBC (Bld) 80.0 % Normal 40.0-80.0 [facility] Comment on above: Performed By: #### H EMDF, PT, BMP3M, PHOS3, MG3, CK3 #### [address] #### VD25H #### [facility] [address] [place] [address] Hematocrit Volume Fraction (Bld) 37.3 % Low 40.0-52.0 [facility] Comment on above: Performed By: #### H EMDF, PT, BMP3M, PHOS3, MG3, CK3 #### [place] [address] [address] [place] #### VD25H #### [facility] [address] [place] [address] Hemoglobin mass conc (Bld) 12.6 g/dL Low 13.0-18.0 [facility] Comment on above: Performed By: #### H EMDF, PT, BMP3M, PHOS3, MG3, CK3 #### [address] [place], [place] #### VD25H #### [facility] [address] [place] [address] Lymphocytes #/vol (Bld) 1.1 10*3/uL Normal 1.0-4.3 [facility] Comment on above: Performed By: #### H EMDF, PT, BMP3M, PHOS3, MG3, CK3 #### [address] #### VD25H #### [facility] [address] [place] [address] Lymphocytes/100 WBC (Bld) 10.3 % Low 20.0-40.0 [facility] Comment on above: Performed By: #### H EMDF, PT, BMP3M, PHOS3, MG3, CK3 #### [address] #### VD25H #### [facility] [address] [place] [address] MCH Entitic mass (RBC) 29.4 pg Normal 26.0-34.0 [facility] Comment on above: Performed By: #### H EMDF, PT, BMP3M, PHOS3, MG3, CK3 #### [address] #### VD25H #### [facility] [address] [place] [address] MCHC mass conc (RBC) 33.9 % Normal 32.0-36.0 [facility] Comment on above: Performed By: #### H EMDF, PT, BMP3M, PHOS3, MG3, CK3 #### [place] [address] [address] [place] #### VD25H #### [facility] [address] [place] [address] MCV Entitic volume (RBC) 86.8 fL Normal 80.0-98.0 [facility] Comment on above: Performed By: #### H EMDF, PT, BMP3M, PHOS3, MG3, CK3 #### [address] #### VD25H #### [facility] [address] [place] [address] Monocytes #/vol (Bld) 0.8 10*3/uL Normal 0.0-0.8 [facility] Comment on above: Performed By: #### H EMDF, PT, BMP3M, PHOS3, MG3, CK3 #### [address] #### VD25H #### [facility] [address] [place] [address] Monocytes/100 WBC (Bld) 7.2 % Normal 2.0-10.0 [facility] Comment on above: Performed By: #### H EMDF, PT, BMP3M, PHOS3, MG3, CK3 #### [address] #### VD25H #### [facility] [address] [place] [address] Platelet mean volume Entitic volume (Bld) 7.8 fL Normal 7.4-10.4 [facility] Comment on above: Performed By: #### H EMDF, PT, BMP3M, PHOS3, MG3, CK3 #### [address] #### VD25H #### [facility] [address] [place] [address] Platelets #/vol (Bld) 301 10*3/uL Normal 140-440 [facility] Comment on above: Performed By: #### H EMDF, PT, BMP3M, PHOS3, MG3, CK3 #### [address] #### VD25H #### [facility] [address] [place] [address] RBC #/vol (Bld) 4.29 10*6/uL Low 4.40-5.[address] [facility] Comment on above: Performed By: #### H EMDF, PT, BMP3M, PHOS3, MG3, CK3 #### [address] #### VD25H #### [facility] [address] [place] [address] WBC #/vol (Bld) 10.8 10*3/uL High 3.6-10.[address] [facility] Comment on above: Performed By: #### H EMDF, PT, BMP3M, PHOS3, MG3, CK3 #### [address] #### VD25H #### [facility] [address] [place] [address] Arterial Blood Gaseson 07-17 CO2 molar conc 29.7 mmol/L High 23.0-27.0 [facility] Comment on above: Performed By: #### H EMDF, PT, BMP3M, PHOS3, MG3, CK3 #### [address] #### VD25H #### [facility] [address] [place] [address] HCO3 molar conc (Bld) 28.4 mmol/L High 21.0-25.0 [facility] Comment on above: Performed By: #### H EMDF, PT, BMP3M, PHOS3, MG3, CK3 #### [address] #### VD25H #### [facility] [address] [place] [address] Hemoglobin mass conc (Bld) 11.1 g/dL Normal ScreenOnly [facility] Comment on above: Performed By: #### H EMDF, PT, BMP3M, PHOS3, MG3, CK3 #### [place] [address] [address] [place] #### VD25H #### [facility] [address] [place] [address] Oxygen ppres (Bld) 109.2 mm[Hg] High 80.0-100.0 [facility] Comment on above: Performed By: #### H EMDF, PT, BMP3M, PHOS3, MG3, CK3 #### [address] [place], [place] #### VD25H #### [facility] [address] [place] [address] Oxygen saturation in Blood 97.8 % Normal 95.0-100.0 [facility] Comment on above: Performed By: #### H EMDF, PT, BMP3M, PHOS3, MG3, CK3 #### [address] [place], [place] #### VD25H #### [facility] [address] [place] [address] pCO2 39.8 mm[Hg] Normal 35.0-45.0 [facility] Comment on above: Performed By: #### H EMDF, PT, BMP3M, PHOS3, MG3, CK3 #### [address] [place], [place] #### VD25H #### [facility] [address] [place] [address] pH (Bld) 7.472 High 7.350-7.450 [facility] Comment on above: Performed By: #### H EMDF, PT, BMP3M, PHOS3, MG3, CK3 #### [address] #### VD25H #### [facility] [address] [place] [address] Std Base Excess 4.5 mmol/L High -3.0-3.0 [facility] Comment on above: Performed By: #### H EMDF, PT, BMP3M, PHOS3, MG3, CK3 #### [place] [address] [address] [place] #### VD25H #### [facility] [address] [place] [address] FIO2 60% Normal [facility] Comment on above: Performed By: #### H EMDF, PT, BMP3M, PHOS3, MG3, CK3 #### [place] [address] [address] [facility] [place] #### VD25H #### [place] [address] [place] [address] Basic Metabolic Panelon - Anion gap molar conc 6 Normal [facility] Comment on above: Performed By: #### H EMDF, PT, BMP3M, PHOS3, MG3, CK3 #### [address], [place] #### VD25H #### [facility] [address] [place] [address] Calcium mass conc 8.0 mg/dL Low 8.4-10.4 [facility] Comment on above: Performed By: #### H EMDF, PT, BMP3M, PHOS3, MG3, CK3 #### [place] [address] [address] [facility] #### VD25H #### [facility] [address] [place] [address] CO2 molar conc 31 mmol/L High 22-30 [facility] Comment on above: Performed By: #### H EMDF, PT, BMP3M, PHOS3, MG3, CK3 #### [address], [place] #### VD25H #### [facility] [address] [place] [address] Glucose mass conc 107 mg/dL High 70-[address] [facility] Comment on above: Performed By: #### H EMDF, PT, BMP3M, PHOS3, MG3, CK3 #### [facility] [address] [place] [address] #### VD25H #### [facility] [address] [place] [address] Urea nitrogen mass conc 22 mg/dL High 7-20 [facility] Comment on above: Performed By: #### H EMDF, PT, BMP3M, PHOS3, MG3, CK3 #### [address] [address] #### VD25H #### [facility] [address] [facility] [place] [address] Creatinine mass conc 0.66 mg/dL Normal 0.52-1.25 [facility] Comment on above: Performed By: #### H EMDF, PT, BMP3M, PHOS3, MG3, CK3 #### [address] [address] #### VD25H #### [facility] [address] [place] [address] GFR/1.73 sq M predicted among blacks MDRD vol rate/area (S/P/Bld) mL/min/{1.73_m2} Normal >60 [facility] Comment on above: Performed By: #### H EMDF, PT, BMP3M, PHOS3, MG3, CK3 #### [address] [address] #### VD25H #### [facility] [address] [place] [address] GFR/1.73 sq M predicted among non-blacks MDRD vol rate/area (S/P/Bld) mL/min/{1.73_m2} Normal >[address] [facility] Comment on above: Result Comment: Sour ce- MDRD equation with creatinine calibration to IDMS(NKDEP) eGFR not recommended for drug dose adjustment Performed By: #### H EMDF, PT, BMP3M, PHOS3, MG3, CK3 #### [facility] [address] [place] [address] #### VD25H #### [facility] [address] [place] [address] Chloride molar conc 105 mmol/L Normal 98-107 [facility] Comment on above: Performed By: #### H EMDF, PT, BMP3M, PHOS3, MG3, CK3 #### [facility] [address] [place] [address] #### VD25H #### [facility] [address] [place] [address] Potassium molar conc 3.9 mmol/L Normal 3.5-5.1 [facility] Comment on above: Performed By: #### H EMDF, PT, BMP3M, PHOS3, MG3, CK3 #### [place] [address] [place] [address] #### VD25H #### [facility] [address] [place] [address] Sodium molar conc 142 mmol/L Normal 135-145 [facility] Comment on above: Performed By: #### H EMDF, PT, BMP3M, PHOS3, MG3, CK3 #### [place] [address] [place] [address] #### VD25H #### [facility] [address] [place] [address] CR Abdomen APon 07-17-2018 CR Abdomen AP Patient Name: KATHYA HOOPER Diagnostic Radiology Exam Date/Time 07/17/2018 12:46:31 EDT Exam CR Abdomen AP Ordering Physician JOYA ROJAS Accession Number [id number] CPT4 Codes 93891 () Reason For Exam ileus Report Abdomen: [...] Transcribed Date and Time: 07/17/2018 12:46 Normal [facility] CR Abdomen AP Patient Name: KATHYA HOOPER Diagnostic Radiology Exam Date/Time 07/17/2018 06:25:43 EDT Exam CR Abdomen AP Ordering Physician JOYA ROJAS Accession Number [id number] CPT4 Codes 01589 () Reason For Exam ileus Report Abdomen: [...] Transcribed Date and Time: 07/17/2018 7:16 Normal [facility] CR Chest Portableon 07-18-19 19 CR Chest Portable Patient Name: KATHYA HOOPER Diagnostic Radiology Exam Date/Time 07/17/2018 18:08:41 EDT Exam CR Chest Portable Ordering Physician SALO DAVIS Accession Number [id number] CPT4 Codes 49482 () Reason For Exam picc Report CHEST [...] Transcribed Date and Time: 07/17/2018 7:24 Normal [facility] CR Chest Portable Patient Name: KATHYA HOOPER Diagnostic Radiology Exam Date/Time 07/17/2018 18:08:41 EDT Exam CR Chest Portable Ordering Physician SALO DAVIS Accession Number [id number] CPT4 Codes 82432 () Reason For Exam reheck line tip [...] Transcribed Date and Time: 07/17/2018 7:21 Normal [facility] CR Chest Portable Patient Name: KATHYA HOOPER Diagnostic Radiology Exam Date/Time 07/17/2018 06:26:06 EDT Exam CR Chest Portable Ordering Physician MARIA EUGENIA PEREZ Accession Number [id number] CPT4 Codes 32610 () Reason For Exam ETT placement Report [...] Transcribed Date and Time: 07/17/2018 7:17 Normal [facility] Hemogram w/ Autodiffon 07-17 Abs Baso Cnt 0.0 10*3/uL Normal 0.0-0.2 [facility] Comment on above: Performed By: #### H EMDF, PT, BMP3M, PHOS3, MG3, CK3 #### [facility] [address] [place] [address] #### VD25H #### [facility] [address] [place] [address] Abs Neutrophile Cnt 8.1 10*3/uL High 1.8-7.0 [facility] Comment on above: Performed By: #### H EMDF, PT, BMP3M, PHOS3, MG3, CK3 #### [facility] [address] [place], [place] #### VD25H #### [facility] [address] [place] [address] Basophils/100 WBC (Bld) 0.4 % Normal 0.0-2.0 [facility] Comment on above: Performed By: #### H EMDF, PT, BMP3M, PHOS3, MG3, CK3 #### [place] [address] [address] [place] #### VD25H #### [facility] [address] [place] [address] Eosinophils #/vol (Bld) 0.1 10*3/uL Normal 0.0-0.5 [facility] Comment on above: Performed By: #### H EMDF, PT, BMP3M, PHOS3, MG3, CK3 #### [place] [address] [address] [place] #### VD25H #### [facility] [address] [place] [address] Eosinophils/100 WBC (Bld) 1.4 % Normal 1.0-6.0 [facility] Comment on above: Performed By: #### H EMDF, PT, BMP3M, PHOS3, MG3, CK3 #### [place] [address] [address] [place] #### VD25H #### [facility] [address] [place] [address] Erythrocyte distribution width Ratio (RBC) 13.5 % Normal 11.5-14.5 [facility] Comment on above: Performed By: #### H EMDF, PT, BMP3M, PHOS3, MG3, CK3 #### [place] [address] [address] [place] #### VD25H #### [facility] [address] [place] [address] Granulocytes/100 WBC (Bld) 78.6 % Normal 40.0-80.0 [facility] Comment on above: Performed By: #### H EMDF, PT, BMP3M, PHOS3, MG3, CK3 #### [address] #### VD25H #### [facility] [address] [place] [address] Hematocrit Volume Fraction (Bld) 31.3 % Low 40.0-52.0 [facility] Comment on above: Performed By: #### H EMDF, PT, BMP3M, PHOS3, MG3, CK3 #### [address] #### VD25H #### [facility] [address] [place] [address] Hemoglobin mass conc (Bld) 10.4 g/dL Low 13.0-18.0 [facility] Comment on above: Performed By: #### H EMDF, PT, BMP3M, PHOS3, MG3, CK3 #### [address] #### VD25H #### [facility] [address] [place] [address] Lymphocytes #/vol (Bld) 1.0 10*3/uL Normal 1.0-4.3 [facility] Comment on above: Performed By: #### H EMDF, PT, BMP3M, PHOS3, MG3, CK3 #### [address] #### VD25H #### [facility] [address] [place] [address] Lymphocytes/100 WBC (Bld) 10.0 % Low 20.0-40.0 [facility] Comment on above: Performed By: #### H EMDF, PT, BMP3M, PHOS3, MG3, CK3 #### [address] #### VD25H #### [facility] [address] [place] [address] MCH Entitic mass (RBC) 29.3 pg Normal 26.0-34.0 [facility] Comment on above: Performed By: #### H EMDF, PT, BMP3M, PHOS3, MG3, CK3 #### [address] #### VD25H #### [facility] [address] [place] [address] MCHC mass conc (RBC) 33.3 % Normal 32.0-36.0 [facility] Comment on above: Performed By: #### H EMDF, PT, BMP3M, PHOS3, MG3, CK3 #### [address] [place], [place] #### VD25H #### [facility] [address] [place] [address] MCV Entitic volume (RBC) 87.9 fL Normal 80.0-98.0 [facility] Comment on above: Performed By: #### H EMDF, PT, BMP3M, PHOS3, MG3, CK3 #### [address] #### VD25H #### [place] [address] [place] [address] Monocytes #/vol (Bld) 1.0 10*3/uL High 0.0-0.8 [facility] Comment on above: Performed By: #### H EMDF, PT, BMP3M, PHOS3, MG3, CK3 #### [address] #### VD25H #### [place] [address] [place] [address] Monocytes/100 WBC (Bld) 9.6 % Normal 2.0-10.0 [facility] Comment on above: Performed By: #### H EMDF, PT, BMP3M, PHOS3, MG3, CK3 #### [address] #### VD25H #### [place] [address] [place] [address] Platelet mean volume Entitic volume (Bld) 7.6 fL Normal 7.4-10.4 [facility] Comment on above: Performed By: #### H EMDF, PT, BMP3M, PHOS3, MG3, CK3 #### [place] [address] [address] [place] #### VD25H #### [facility] [address] [place] [address] Platelets #/vol (Bld) 307 10*3/uL Normal 140-440 [facility] Comment on above: Performed By: #### H EMDF, PT, BMP3M, PHOS3, MG3, CK3 #### [address] #### VD25H #### [facility] [address] [place] [address] RBC #/vol (Bld) 3.56 10*6/uL Low 4.40-5.90 [facility] Comment on above: Performed By: #### H EMDF, PT, BMP3M, PHOS3, MG3, CK3 #### [address] #### VD25H #### [facility] [address] [place] [address] WBC #/vol (Bld) 10.2 10*3/uL Normal 3.6-10.7 [facility] Comment on above: Performed By: #### H EMDF, PT, BMP3M, PHOS3, MG3, CK3 #### [address] #### VD25H #### [facility] [address] [place] [address] Basic Metabolic Panelon 06-29 Calcium mass conc 8.1 mg/dL Low 8.4-10.4 [facility] Comment on above: Performed By: #### H EMDF, PT, BMP3M, PHOS3, MG3, CK3 #### [address] #### VD25H #### [facility] [address] [place] [address] Anion gap molar conc 5 Normal [facility] Comment on above: Performed By: #### H EMDF, PT, BMP3M, PHOS3, MG3, CK3 #### [address] [address] #### VD25H #### [facility] [address] [place] [address] CO2 molar conc 32 mmol/L High 22-30 [facility] Comment on above: Performed By: #### H EMDF, PT, BMP3M, PHOS3, MG3, CK3 #### [address] #### VD25H #### [facility] [address] [place] [address] Creatinine mass conc 0.62 mg/dL Normal 0.52-1.25 [facility] Comment on above: Performed By: #### H EMDF, PT, BMP3M, PHOS3, MG3, CK3 #### [address] [address] #### VD25H #### [facility] [address] [place] [address] GFR/1.73 sq M predicted among blacks MDRD vol rate/area (S/P/Bld) mL/min/{1.73_m2} Normal >60 [facility] Comment on above: Performed By: #### H EMDF, PT, BMP3M, PHOS3, MG3, CK3 #### [address] [address] #### VD25H #### [facility] [address] [place] [address] GFR/1.73 sq M predicted among non-blacks MDRD vol rate/area (S/P/Bld) mL/min/{1.73_m2} Normal >[address] [facility] Comment on above: Result Comment: Sour ce- MDRD equation with creatinine calibration to IDMS(NKDEP) eGFR not recommended for drug dose adjustment Performed By: #### H EMDF, PT, BMP3M, PHOS3, MG3, CK3 #### [place] [address] [address] [facility] [place] #### VD25H #### [facility] [address] [place] [address] Glucose mass conc 103 mg/dL High 70-[address] [facility] Comment on above: Performed By: #### H EMDF, PT, BMP3M, PHOS3, MG3, CK3 #### [place] [address] [address] [facility] [place] #### VD25H #### [facility] [address] [place] [address] Urea nitrogen mass conc 20 mg/dL Normal 7-20 [facility] Comment on above: Performed By: #### H EMDF, PT, BMP3M, PHOS3, MG3, CK3 #### [address], [place] #### VD25H #### [facility] [address] [place] [address] Chloride molar conc 107 mmol/L Normal 98-107 [facility] Comment on above: Performed By: #### H EMDF, PT, BMP3M, PHOS3, MG3, CK3 #### [address], [place] #### VD25H #### [facility] [address] [place] [address] Potassium molar conc 3.7 mmol/L Normal 3.5-5.1 [facility] Comment on above: Performed By: #### H EMDF, PT, BMP3M, PHOS3, MG3, CK3 #### [place] [address] [address] [facility] [place] #### VD25H #### [facility] [address] [place] [address] Sodium molar conc 145 mmol/L Normal 135-[address] [facility] Comment on above: Performed By: #### H EMDF, PT, BMP3M, PHOS3, MG3, CK3 #### [address] [place] [address] #### VD25H #### [facility] [address] [place] [address] CR Abdomen APon 07-16-2018 CR Abdomen AP Patient Name: KATHYA HOOPER Diagnostic Radiology Exam Date/Time 07/16/2018 08:00:58 EDT Exam CR Abdomen AP Ordering Physician JOYA ROJAS Accession Number [id number] CPT4 Codes 92600 () Reason For Exam ileus Report KUB [...] Transcribed Date and Time: 07/16/2018 10:03 Normal [facility] CR Chest Portableon 07-17-19 19 CR Chest Portable Patient Name: KATHYA HOOPER Diagnostic Radiology Exam Date/Time 07/16/2018 06:19:28 EDT Exam CR Chest Portable Ordering Physician MARIA EUGENIA PEREZ Accession Number [id number] CPT4 Codes 66599 () Reason For Exam ETT placement Report [...] Transcribed Date and Time: 07/16/2018 10:10 Normal [facility] Hemogram w/ Autodiffon 07-16 Abs Baso Cnt 0.0 10*3/uL Normal 0.0-0.2 [facility] Comment on above: Performed By: #### H EMDF, PT, BMP3M, PHOS3, MG3, CK3 #### [facility] [address] [place], [place] #### VD25H #### [facility] [address] [place] [address] Abs Neutrophile Cnt 8.7 10*3/uL High 1.8-7.0 [facility] Comment on above: Performed By: #### H EMDF, PT, BMP3M, PHOS3, MG3, CK3 #### [address] #### VD25H #### [facility] [address] [facility] [place] [address] Basophils/100 WBC (Bld) 0.2 % Normal 0.0-2.0 [facility] Comment on above: Performed By: #### H EMDF, PT, BMP3M, PHOS3, MG3, CK3 #### [address] #### VD25H #### [facility] [address] [place] [address] Eosinophils #/vol (Bld) 0.1 10*3/uL Normal 0.0-0.5 [facility] Comment on above: Performed By: #### H EMDF, PT, BMP3M, PHOS3, MG3, CK3 #### [facility] [address], [place] #### VD25H #### [facility] [address] [place] [address] Eosinophils/100 WBC (Bld) 0.7 % Low 1.0-6.0 [facility] Comment on above: Performed By: #### H EMDF, PT, BMP3M, PHOS3, MG3, CK3 #### [address] #### VD25H #### [facility] [address] [place] [address] Erythrocyte distribution width Ratio (RBC) 13.7 % Normal 11.5-14.5 [facility] Comment on above: Performed By: #### H EMDF, PT, BMP3M, PHOS3, MG3, CK3 #### [address] #### VD25H #### [facility] [address] [place] [address] Granulocytes/100 WBC (Bld) 83.0 % High 40.0-80.0 [facility] Comment on above: Performed By: #### H EMDF, PT, BMP3M, PHOS3, MG3, CK3 #### [address] #### VD25H #### [facility] [address] [place] [address] Hematocrit Volume Fraction (Bld) 30.3 % Low 40.0-52.0 [facility] Comment on above: Performed By: #### H EMDF, PT, BMP3M, PHOS3, MG3, CK3 #### [address] #### VD25H #### [facility] [address] [place] [address] Hemoglobin mass conc (Bld) 10.5 g/dL Low 13.0-18.0 [facility] Comment on above: Performed By: #### H EMDF, PT, BMP3M, PHOS3, MG3, CK3 #### [place] [address] [place], [place] #### VD25H #### [facility] [address] [place] [address] Lymphocytes #/vol (Bld) 0.7 10*3/uL Low 1.0-4.3 [facility] Comment on above: Performed By: #### H EMDF, PT, BMP3M, PHOS3, MG3, CK3 #### [address] #### VD25H #### [facility] [address] [place] [address] Lymphocytes/100 WBC (Bld) 6.7 % Low 20.0-40.0 [facility] Comment on above: Performed By: #### H EMDF, PT, BMP3M, PHOS3, MG3, CK3 #### [address] #### VD25H #### [facility] [address] [place] [place] [address] MCH Entitic mass (RBC) 30.2 pg Normal 26.0-34.0 [facility] Comment on above: Performed By: #### H EMDF, PT, BMP3M, PHOS3, MG3, CK3 #### [address] #### VD25H #### [facility] [address] [place] [address] MCHC mass conc (RBC) 34.6 % Normal 32.0-36.0 [facility] Comment on above: Performed By: #### H EMDF, PT, BMP3M, PHOS3, MG3, CK3 #### [address] #### VD25H #### [facility] [address] [place] [address] MCV Entitic volume (RBC) 87.3 fL Normal 80.0-98.0 [facility] Comment on above: Performed By: #### H EMDF, PT, BMP3M, PHOS3, MG3, CK3 #### [facility] [address] [place], [place] #### VD25H #### [facility] [address] [place] [address] Monocytes #/vol (Bld) 1.0 10*3/uL High 0.0-0.8 [facility] Comment on above: Performed By: #### H EMDF, PT, BMP3M, PHOS3, MG3, CK3 #### [address] #### VD25H #### [facility] [address] [place] [address] Monocytes/100 WBC (Bld) 9.4 % Normal 2.0-10.0 [facility] Comment on above: Performed By: #### H EMDF, PT, BMP3M, PHOS3, MG3, CK3 #### [address] #### VD25H #### [facility] [address] [place] [address] Platelet mean volume Entitic volume (Bld) 6.9 fL Low 7.4-10.4 [facility] Comment on above: Performed By: #### H EMDF, PT, BMP3M, PHOS3, MG3, CK3 #### [address] [place], [place] #### VD25H #### [facility] [address] [place] [address] Platelets #/vol (Bld) 254 10*3/uL Normal 140-440 [facility] Comment on above: Performed By: #### H EMDF, PT, BMP3M, PHOS3, MG3, CK3 #### [address] #### VD25H #### [place] [address] [place] [address] RBC #/vol (Bld) 3.47 10*6/uL Low 4.40-5.[address] [facility] Comment on above: Performed By: #### H EMDF, PT, BMP3M, PHOS3, MG3, CK3 #### [address] #### VD25H #### [place] [address] [place] [address] WBC #/vol (Bld) 10.5 10*3/uL Normal 3.6-10.[address] [facility] Comment on above: Performed By: #### H EMDF, PT, BMP3M, PHOS3, MG3, CK3 #### [address] #### VD25H #### [place] [address] [place] [address] Arterial Blood Gaseson 07-15 CO2 molar conc 26.7 mmol/L Normal 23.0-27.0 [facility] Comment on above: Performed By: #### H EMDF, PT, BMP3M, PHOS3, MG3, CK3 #### [address] #### VD25H #### [place] [address] [place] [address] FIO2 50% Normal [facility] Comment on above: Performed By: #### H EMDF, PT, BMP3M, PHOS3, MG3, CK3 #### [address] #### VD25H #### [place] [address] [place] [address] HCO3 molar conc (Bld) 25.7 mmol/L High 21.0-25.0 [facility] Comment on above: Performed By: #### H EMDF, PT, BMP3M, PHOS3, MG3, CK3 #### [address] #### VD25H #### [facility] [address] [place] [address] Hemoglobin mass conc (Bld) 12.5 g/dL Normal ScreenOnly [facility] Comment on above: Performed By: #### H EMDF, PT, BMP3M, PHOS3, MG3, CK3 #### [facility] [address] [place], [place] #### VD25H #### [facility] [address] [place] [address] Oxygen ppres (Bld) 90.4 mm[Hg] Normal 80.0-100.0 [facility] Comment on above: Performed By: #### H EMDF, PT, BMP3M, PHOS3, MG3, CK3 #### [address] [place] #### VD25H #### [facility] [address] [place] [address] Oxygen saturation in Blood 96.8 % Normal 95.0-100.0 [facility] Comment on above: Performed By: #### H EMDF, PT, BMP3M, PHOS3, MG3, CK3 #### [address] [place] #### VD25H #### [facility] [address] [place] [address] pCO2 33.4 mm[Hg] Low 35.0-45.0 [facility] Comment on above: Performed By: #### H EMDF, PT, BMP3M, PHOS3, MG3, CK3 #### [facility] [address] [place] #### VD25H #### [facility] [address] [place] [address] pH (Bld) 7.504 High 7.350-7.450 [facility] Comment on above: Performed By: #### H EMDF, PT, BMP3M, PHOS3, MG3, CK3 #### [address] [place], [place] #### VD25H #### [facility] [address] [place] [address] Std Base Excess 2.9 mmol/L Normal -3.0-3.0 [facility] Comment on above: Performed By: #### H EMDF, PT, BMP3M, PHOS3, MG3, CK3 #### [address] [place] #### VD25H #### [facility] [address] [place] [address] Basic Metabolic Panelon 06-29 Anion gap molar conc 8 Normal [facility] Comment on above: Performed By: #### H EMDF, PT, BMP3M, PHOS3, MG3, CK3 #### [address] [place], [place] #### VD25H #### [facility] [address] [place] [address] Calcium mass conc 8.6 mg/dL Normal 8.4-10.4 [facility] Comment on above: Performed By: #### H EMDF, PT, BMP3M, PHOS3, MG3, CK3 #### [address] [place] #### VD25H #### [facility] [address] [place] [address] CO2 molar conc 29 mmol/L Normal 22-30 [facility] Comment on above: Performed By: #### H EMDF, PT, BMP3M, PHOS3, MG3, CK3 #### [address] [place] #### VD25H #### [facility] [address] [place] [address] Glucose mass conc 119 mg/dL High 70-100 [facility] Comment on above: Performed By: #### H EMDF, PT, BMP3M, PHOS3, MG3, CK3 #### [address] [place] #### VD25H #### [facility] [address] [place] [address] Urea nitrogen mass conc 23 mg/dL High 7-20 [facility] Comment on above: Performed By: #### H EMDF, PT, BMP3M, PHOS3, MG3, CK3 #### [address] #### VD25H #### [facility] [address] [place] [address] Creatinine mass conc 0.73 mg/dL Normal 0.52-1.25 [facility] Comment on above: Performed By: #### H EMDF, PT, BMP3M, PHOS3, MG3, CK3 #### [address] #### VD25H #### [place] [address] [place] [address] GFR/1.73 sq M predicted among blacks MDRD vol rate/area (S/P/Bld) mL/min/{1.73_m2} Normal >60 [facility] Comment on above: Performed By: #### H EMDF, PT, BMP3M, PHOS3, MG3, CK3 #### [address] #### VD25H #### [address] [place] [address] GFR/1.73 sq M predicted among non-blacks MDRD vol rate/area (S/P/Bld) mL/min/{1.73_m2} Normal >[address] [facility] Comment on above: Result Comment: Sour ce- MDRD equation with creatinine calibration to IDMS(NKDEP) eGFR not recommended for drug dose adjustment Performed By: #### H EMDF, PT, BMP3M, PHOS3, MG3, CK3 #### [address] #### VD25H #### [place] [address] [place] [address] Potassium molar conc 4.1 mmol/L Normal 3.5-5.1 [facility] Comment on above: Performed By: #### H EMDF, PT, BMP3M, PHOS3, MG3, CK3 #### [facility] [address] [place] [address] #### VD25H #### [facility] [address] [place] [address] Sodium molar conc 144 mmol/L Normal 135-[address] [facility] Comment on above: Performed By: #### H EMDF, PT, BMP3M, PHOS3, MG3, CK3 #### [facility] [address] [place] [address] #### VD25H #### [facility] [address] [place] [address] Chloride molar conc 107 mmol/L Normal 98-107 [facility] Comment on above: Performed By: #### H EMDF, PT, BMP3M, PHOS3, MG3, CK3 #### [facility] [address] [place] [address] #### VD25H #### [facility] [address] [place] [address] CR Abdomen APon 07-15-2018 CR Abdomen AP Patient Name: KATHYA HOOPER Diagnostic Radiology Exam Date/Time 07/15/2018 09:25:44 EDT Exam CR Abdomen AP Ordering Physician [id number] THAKKAR Accession Number [id number] CPT4 Codes 66970 () Reason For Exam ileus Report EXAMINATION: Abdomen: AP view. COMPARISON: 07/14/2018. REASON FOR STUDY: Ileus. FINDINGS: Small bowel loops are diffusely dilated. The colon is decompressed. A gastrostomy tube is projected over the gastric fundus. CONCLUSIONS: Probable distal small bowel obstruction. Further investigation with CT scan may be useful. Report Dictated on Final Dictated: 07/15/2018 10:07 am Dictating Physician: MD JERICA, Anamika VALE Signed Date and Time: 07/15/2018 10:10 am Signed by: MD PIZANO B NELSON Transcribed Date and Time: 07/15/2018 10:07 Normal [facility] CR Chest Portableon 07-16-19 CR Chest Portable Patient Name: KATHYA HOOPER Diagnostic Radiology Exam Date/Time 07/15/2018 06:00:00 EDT Exam CR Chest Portable Ordering Physician MARIA EUGENIA PEREZ Accession Number [id number] CPT4 Codes 37330 () Reason For Exam ETT placement Report [...] Transcribed Date and Time: 07/15/2018 9:14 Normal [facility] CULT./ST. RESPIRATORYon 06-29 CULT./ST. RESPIRATORY CULT./ST. RESPIRAT [...] in clusters. Rare gram negative bacilli. Normal [facility] Comment on above: Order Comment: Speci men Source Comment:Sputum, Suctioned Performed By: #### H EMDF, PT, BMP3M, PHOS3, MG3, CK3 #### [facility] [address] [place], [place] #### VD25H #### [facility] [address] [place] [address] Hemogram w/ Autodiffon 07-15 Abs Baso Cnt 0.0 10*3/uL Normal 0.0-0.2 [facility] Comment on above: Performed By: #### H EMDF, PT, BMP3M, PHOS3, MG3, CK3 #### [address] #### VD25H #### [facility] [address] [place] [address] Abs Neutrophile Cnt 13.2 10*3/uL High 1.8-7.0 [facility] Comment on above: Performed By: #### H EMDF, PT, BMP3M, PHOS3, MG3, CK3 #### [address] #### VD25H #### [facility] [address] [facility] [place] [address] Basophils/100 WBC (Bld) 0.2 % Normal 0.0-2.0 [facility] Comment on above: Performed By: #### H EMDF, PT, BMP3M, PHOS3, MG3, CK3 #### [address] #### VD25H #### [facility] [address] [place] [address] Eosinophils #/vol (Bld) 0.0 10*3/uL Normal 0.0-0.5 [facility] Comment on above: Performed By: #### H EMDF, PT, BMP3M, PHOS3, MG3, CK3 #### [address] #### VD25H #### [facility] [address] [facility] [place] [address] Eosinophils/100 WBC (Bld) 0.1 % Low 1.0-6.0 [facility] Comment on above: Performed By: #### H EMDF, PT, BMP3M, PHOS3, MG3, CK3 #### [facility] [address] [place], [place] #### VD25H #### [facility] [address] [place] [address] Erythrocyte distribution width Ratio (RBC) 13.9 % Normal 11.5-14.5 [facility] Comment on above: Performed By: #### H EMDF, PT, BMP3M, PHOS3, MG3, CK3 #### [address] #### VD25H #### [facility] [address] [place] [address] Granulocytes/100 WBC (Bld) 88.1 % High 40.0-80.0 [facility] Comment on above: Performed By: #### H EMDF, PT, BMP3M, PHOS3, MG3, CK3 #### [address] #### VD25H #### [facility] [address] [place] [address] Hematocrit Volume Fraction (Bld) 35.3 % Low 40.0-52.0 [facility] Comment on above: Performed By: #### H EMDF, PT, BMP3M, PHOS3, MG3, CK3 #### [address] #### VD25H #### [facility] [address] [place] [address] Hemoglobin mass conc (Bld) 11.9 g/dL Low 13.0-18.0 [facility] Comment on above: Performed By: #### H EMDF, PT, BMP3M, PHOS3, MG3, CK3 #### [address] #### VD25H #### [facility] [address] [place] [address] Lymphocytes #/vol (Bld) 0.8 10*3/uL Low 1.0-4.3 [facility] Comment on above: Performed By: #### H EMDF, PT, BMP3M, PHOS3, MG3, CK3 #### [address] [place], [place] #### VD25H #### [facility] [address] [place] [address] Lymphocytes/100 WBC (Bld) 5.0 % Low 20.0-40.0 [facility] Comment on above: Performed By: #### H EMDF, PT, BMP3M, PHOS3, MG3, CK3 #### [address] #### VD25H #### [facility] [address] [place] [address] MCH Entitic mass (RBC) 29.5 pg Normal 26.0-34.0 [facility] Comment on above: Performed By: #### H EMDF, PT, BMP3M, PHOS3, MG3, CK3 #### [address] #### VD25H #### [facility] [address] [place] [address] MCHC mass conc (RBC) 33.8 % Normal 32.0-36.0 [facility] Comment on above: Performed By: #### H EMDF, PT, BMP3M, PHOS3, MG3, CK3 #### [address] #### VD25H #### [facility] [address] [facility] [place] [address] MCV Entitic volume (RBC) 87.2 fL Normal 80.0-98.0 [facility] Comment on above: Performed By: #### H EMDF, PT, BMP3M, PHOS3, MG3, CK3 #### [address] #### VD25H #### [facility] [address] [place] [address] Monocytes #/vol (Bld) 1.0 10*3/uL High 0.0-0.8 [facility] Comment on above: Performed By: #### H EMDF, PT, BMP3M, PHOS3, MG3, CK3 #### [address] #### VD25H #### [facility] [address] [place] [address] Monocytes/100 WBC (Bld) 6.6 % Normal 2.0-10.0 [facility] Comment on above: Performed By: #### H EMDF, PT, BMP3M, PHOS3, MG3, CK3 #### [address] #### VD25H #### [place] [address] [place] [address] Platelet mean volume Entitic volume (Bld) 7.9 fL Normal 7.4-10.4 [facility] Comment on above: Performed By: #### H EMDF, PT, BMP3M, PHOS3, MG3, CK3 #### [address] #### VD25H #### [place] [address] [place] [address] Platelets #/vol (Bld) 319 10*3/uL Normal 140-440 [facility] Comment on above: Performed By: #### H EMDF, PT, BMP3M, PHOS3, MG3, CK3 #### [address] #### VD25H #### [facility] [address] [place] [address] RBC #/vol (Bld) 4.05 10*6/uL Low 4.40-5.[address] [facility] Comment on above: Performed By: #### H EMDF, PT, BMP3M, PHOS3, MG3, CK3 #### [address] [place], [place] #### VD25H #### [facility] [address] [place] [address] WBC #/vol (Bld) 15.0 10*3/uL High 3.6-10.[address] [facility] Comment on above: Performed By: #### H EMDF, PT, BMP3M, PHOS3, MG3, CK3 #### [address] [place], [place] #### VD25H #### [facility] [address] [place] [address] Basic Metabolic Panelon 06-29 Anion gap molar conc 9 Normal [facility] Comment on above: Performed By: #### H EMDF, PT, BMP3M, PHOS3, MG3, CK3 #### [address] #### VD25H #### [place] [address] [place] [address] Calcium mass conc 7.6 mg/dL Low 8.4-10.[address] [facility] Comment on above: Performed By: #### H EMDF, PT, BMP3M, PHOS3, MG3, CK3 #### [address] #### VD25H #### [facility] [address] [place] [address] CO2 molar conc 26 mmol/L Normal 22-30 [facility] Comment on above: Performed By: #### H EMDF, PT, BMP3M, PHOS3, MG3, CK3 #### [address] #### VD25H #### [facility] [address] [place] [address] Glucose mass conc 148 mg/dL High 70-[address] [facility] Comment on above: Performed By: #### H EMDF, PT, BMP3M, PHOS3, MG3, CK3 #### [address] [place], [place] #### VD25H #### [facility] [address] [place] [address] Urea nitrogen mass conc 16 mg/dL Normal 7-20 [facility] Comment on above: Performed By: #### H EMDF, PT, BMP3M, PHOS3, MG3, CK3 #### [address] [place], [place] #### VD25H #### [facility] [address] [place] [address] Creatinine mass conc 0.62 mg/dL Normal 0.52-1.25 [facility] Comment on above: Performed By: #### H EMDF, PT, BMP3M, PHOS3, MG3, CK3 #### [address] #### VD25H #### [address] [place] [address] GFR/1.73 sq M predicted among blacks MDRD vol rate/area (S/P/Bld) mL/min/{1.73_m2} Normal >60 [facility] Comment on above: Performed By: #### H EMDF, PT, BMP3M, PHOS3, MG3, CK3 #### [address] #### VD25H #### [place] [address] [place] [address] GFR/1.73 sq M predicted among non-blacks MDRD vol rate/area (S/P/Bld) mL/min/{1.73_m2} Normal >[address] [facility] Comment on above: Result Comment: Sour ce- MDRD equation with creatinine calibration to IDMS(NKDEP) eGFR not recommended for drug dose adjustment Performed By: #### H EMDF, PT, BMP3M, PHOS3, MG3, CK3 #### [address] #### VD25H #### [facility] [address] [place] [address] Potassium molar conc 4.5 mmol/L Normal 3.5-5.1 [facility] Comment on above: Performed By: #### H EMDF, PT, BMP3M, PHOS3, MG3, CK3 #### [facility] [address] [place] [address] #### VD25H #### [facility] [address] [place] [address] Sodium molar conc 137 mmol/L Normal 135-[address] [facility] Comment on above: Performed By: #### H EMDF, PT, BMP3M, PHOS3, MG3, CK3 #### [facility] [address] [place] [address] #### VD25H #### [facility] [address] [place] [address] Chloride molar conc 103 mmol/L Normal 98-107 [facility] Comment on above: Performed By: #### H EMDF, PT, BMP3M, PHOS3, MG3, CK3 #### [facility] [address] [place] [address] #### VD25H #### [facility] [address] [place] [address] CR Abdomen APon 07-14-2018 CR Abdomen AP Patient Name: KATHYA HOOPER Diagnostic Radiology Exam Date/Time 07/14/2018 19:15:43 EDT Exam CR Abdomen AP Ordering Physician [id number] THAKKAR Accession Number [id number] CPT4 Codes 01484 () Reason For Exam Distended with emesis [...] Transcribed Date and Time: 07/14/2018 7:28 Normal [facility] CR Chest Portableon 07-15-19 19 CR Chest Portable Patient Name: KATHYA HOOPER Diagnostic Radiology Exam Date/Time 07/14/2018 06:53:29 EDT Exam CR Chest Portable Ordering Physician MARIA EUGENIA PEREZ Accession Number [id number] CPT4 Codes 15958 () Reason For Exam ETT placement Report [...] Transcribed Date and Time: 07/14/2018 11:51 Normal [facility] Hemogram w/ Autodiffon 07-14 Abs Baso Cnt 0.0 10*3/uL Normal 0.0-0.2 [facility] Comment on above: Performed By: #### H EMDF, PT, BMP3M, PHOS3, MG3, CK3 #### [facility] [address] [place] [address] #### VD25H #### [facility] [address] [place] [address] Abs Neutrophile Cnt 11.7 10*3/uL High 1.8-7.0 [facility] Comment on above: Performed By: #### H EMDF, PT, BMP3M, PHOS3, MG3, CK3 #### [facility] [address] [place], [place] #### VD25H #### [facility] [address] [place] [address] Basophils/100 WBC (Bld) 0.3 % Normal 0.0-2.0 [facility] Comment on above: Performed By: #### H EMDF, PT, BMP3M, PHOS3, MG3, CK3 #### [address] [place], [place] #### VD25H #### [facility] [address] [place] [address] Eosinophils #/vol (Bld) 0.0 10*3/uL Normal 0.0-0.5 [facility] Comment on above: Performed By: #### H EMDF, PT, BMP3M, PHOS3, MG3, CK3 #### [facility] [address] [place], [place] #### VD25H #### [facility] [address] [place] [address] Eosinophils/100 WBC (Bld) 0.1 % Low 1.0-6.0 [facility] Comment on above: Performed By: #### H EMDF, PT, BMP3M, PHOS3, MG3, CK3 #### [facility] [address] [place], [place] #### VD25H #### [facility] [address] [place] [address] Erythrocyte distribution width Ratio (RBC) 13.8 % Normal 11.5-14.5 [facility] Comment on above: Performed By: #### H EMDF, PT, BMP3M, PHOS3, MG3, CK3 #### [facility] [address] [place], [place] #### VD25H #### [facility] [address] [place] [address] Granulocytes/100 WBC (Bld) 89.1 % High 40.0-80.0 [facility] Comment on above: Performed By: #### H EMDF, PT, BMP3M, PHOS3, MG3, CK3 #### [address] #### VD25H #### [facility] [address] [place] [place] [address] Hematocrit Volume Fraction (Bld) 33.8 % Low 40.0-52.0 [facility] Comment on above: Performed By: #### H EMDF, PT, BMP3M, PHOS3, MG3, CK3 #### [address] #### VD25H #### [facility] [address] [place] [address] Hemoglobin mass conc (Bld) 11.5 g/dL Low 13.0-18.0 [facility] Comment on above: Performed By: #### H EMDF, PT, BMP3M, PHOS3, MG3, CK3 #### [address] #### VD25H #### [facility] [address] [place] [address] Lymphocytes #/vol (Bld) 0.6 10*3/uL Low 1.0-4.3 [facility] Comment on above: Performed By: #### H EMDF, PT, BMP3M, PHOS3, MG3, CK3 #### [address] [place], [place] #### VD25H #### [facility] [address] [place] [address] Lymphocytes/100 WBC (Bld) 4.5 % Low 20.0-40.0 [facility] Comment on above: Performed By: #### H EMDF, PT, BMP3M, PHOS3, MG3, CK3 #### [address] #### VD25H #### [facility] [address] [place] [address] MCH Entitic mass (RBC) 29.6 pg Normal 26.0-34.0 [facility] Comment on above: Performed By: #### H EMDF, PT, BMP3M, PHOS3, MG3, CK3 #### [address] #### VD25H #### [facility] [address] [place] [address] MCHC mass conc (RBC) 33.9 % Normal 32.0-36.0 [facility] Comment on above: Performed By: #### H EMDF, PT, BMP3M, PHOS3, MG3, CK3 #### [address] #### VD25H #### [facility] [address] [place] [address] MCV Entitic volume (RBC) 87.3 fL Normal 80.0-98.0 [facility] Comment on above: Performed By: #### H EMDF, PT, BMP3M, PHOS3, MG3, CK3 #### [address] #### VD25H #### [place] [address] [place] [address] Monocytes #/vol (Bld) 0.8 10*3/uL Normal 0.0-0.8 [facility] Comment on above: Performed By: #### H EMDF, PT, BMP3M, PHOS3, MG3, CK3 #### [address] #### VD25H #### [facility] [address] [place] [address] Monocytes/100 WBC (Bld) 6.0 % Normal 2.0-10.0 [facility] Comment on above: Performed By: #### H EMDF, PT, BMP3M, PHOS3, MG3, CK3 #### [address] [place], [place] #### VD25H #### [facility] [address] [place] [address] Platelet mean volume Entitic volume (Bld) 8.1 fL Normal 7.4-10.4 [facility] Comment on above: Performed By: #### H EMDF, PT, BMP3M, PHOS3, MG3, CK3 #### [place] [address] [address] [place], [place] #### VD25H #### [facility] [address] [place] [address] Platelets #/vol (Bld) 196 10*3/uL Normal 140-440 [facility] Comment on above: Performed By: #### H EMDF, PT, BMP3M, PHOS3, MG3, CK3 #### [address] #### VD25H #### [facility] [address] [place] [address] RBC #/vol (Bld) 3.87 10*6/uL Low 4.40-5.[address] [facility] Comment on above: Performed By: #### H EMDF, PT, BMP3M, PHOS3, MG3, CK3 #### [address] [place], [place] #### VD25H #### [facility] [address] [place] [address] WBC #/vol (Bld) 13.2 10*3/uL High 3.6-10.[address] [facility] Comment on above: Performed By: #### H EMDF, PT, BMP3M, PHOS3, MG3, CK3 #### [address] [place] #### VD25H #### [facility] [address] [place] [address] Add on test from HISon 07-13 Add on test from HIS Rejected Normal [facility] Comment on above: Result Comment: No s pecimen available for addon. Performed By: #### H EMDF, PT, BMP3M, PHOS3, MG3, CK3 #### [address] #### VD25H #### [facility] [address] [place] [address] Arterial Blood Gaseson 07-13 CO2 molar conc 25.6 mmol/L Normal 23.0-27.0 [facility] Comment on above: Performed By: #### H EMDF, PT, BMP3M, PHOS3, MG3, CK3 #### [address] #### VD25H #### [address] [place] [address] HCO3 molar conc (Bld) 24.5 mmol/L Normal 21.0-25.0 [facility] Comment on above: Performed By: #### H EMDF, PT, BMP3M, PHOS3, MG3, CK3 #### [address] #### VD25H #### [address] [place] [address] Hemoglobin mass conc (Bld) 9.7 g/dL Normal ScreenOnly [facility] Comment on above: Performed By: #### H EMDF, PT, BMP3M, PHOS3, MG3, CK3 #### [address] #### VD25H #### [address] [place] [address] Oxygen ppres (Bld) 99.9 mm[Hg] Normal 80.0-100.0 [facility] Comment on above: Performed By: #### H EMDF, PT, BMP3M, PHOS3, MG3, CK3 #### [address] #### VD25H #### [address] [place] [address] Oxygen saturation in Blood 97.5 % Normal 95.0-100.0 [facility] Comment on above: Performed By: #### H EMDF, PT, BMP3M, PHOS3, MG3, CK3 #### [address] [place] #### VD25H #### [facility] [address] [place] [address] pCO2 36.0 mm[Hg] Normal 35.0-45.0 [facility] Comment on above: Performed By: #### H EMDF, PT, BMP3M, PHOS3, MG3, CK3 #### [address] #### VD25H #### [facility] [address] [place] [address] pH (Bld) 7.450 Normal 7.350-7.450 [facility] Comment on above: Performed By: #### H EMDF, PT, BMP3M, PHOS3, MG3, CK3 #### [address] #### VD25H #### [facility] [address] [place] [address] Std Base Excess 0.6 mmol/L Normal -3.0-3.0 [facility] Comment on above: Performed By: #### H EMDF, PT, BMP3M, PHOS3, MG3, CK3 #### [address] #### VD25H #### [facility] [address] [place] [address] FIO2 .50 Normal [facility] Comment on above: Performed By: #### H EMDF, PT, BMP3M, PHOS3, MG3, CK3 #### [address], [place] #### VD25H #### [facility] [address] [place] [address] Basic Metabolic Panelon 06-29 Calcium mass conc 7.6 mg/dL Low 8.4-10.4 [facility] Comment on above: Performed By: #### H EMDF, PT, BMP3M, PHOS3, MG3, CK3 #### [place] [address] [address] [place] #### VD25H #### [facility] [address] [place] [address] Glucose mass conc 120 mg/dL High 70-100 [facility] Comment on above: Performed By: #### H EMDF, PT, BMP3M, PHOS3, MG3, CK3 #### [place] [address] [place], [place] #### VD25H #### [facility] [address] [place] [address] Anion gap molar conc 7 Normal [facility] Comment on above: Performed By: #### H EMDF, PT, BMP3M, PHOS3, MG3, CK3 #### [place] [address] [address] [place] #### VD25H #### [facility] [address] [place] [address] CO2 molar conc 27 mmol/L Normal 22-30 [facility] Comment on above: Performed By: #### H EMDF, PT, BMP3M, PHOS3, MG3, CK3 #### [place] [address] [place], [place] #### VD25H #### [facility] [address] [place] [address] Creatinine mass conc 0.62 mg/dL Normal 0.52-1.25 [facility] Comment on above: Performed By: #### H EMDF, PT, BMP3M, PHOS3, MG3, CK3 #### [place] [address] [address] [facility], [place] #### VD25H #### [facility] [address] [place] [address] GFR/1.73 sq M predicted among blacks MDRD vol rate/area (S/P/Bld) mL/min/{1.73_m2} Normal >60 [facility] Comment on above: Performed By: #### H EMDF, PT, BMP3M, PHOS3, MG3, CK3 #### [place] [address] [address] [place] #### VD25H #### [facility] [address] [place] [address] GFR/1.73 sq M predicted among non-blacks MDRD vol rate/area (S/P/Bld) mL/min/{1.73_m2} Normal >[address] [facility] Comment on above: Result Comment: Sour ce- MDRD equation with creatinine calibration to IDMS(NKDEP) eGFR not recommended for drug dose adjustment Performed By: #### H EMDF, PT, BMP3M, PHOS3, MG3, CK3 #### [address] #### VD25H #### [facility] [address] [place] [address] Urea nitrogen mass conc 17 mg/dL Normal 7-20 [facility] Comment on above: Performed By: #### H EMDF, PT, BMP3M, PHOS3, MG3, CK3 #### [place] [address] [facility] [place] #### VD25H #### [facility] [address] [place] [address] Chloride molar conc 105 mmol/L Normal 98-107 [facility] Comment on above: Performed By: #### H EMDF, PT, BMP3M, PHOS3, MG3, CK3 #### [address], [place] #### VD25H #### [facility] [address] [place] [address] Potassium molar conc 3.8 mmol/L Normal 3.5-5.1 [facility] Comment on above: Performed By: #### H EMDF, PT, BMP3M, PHOS3, MG3, CK3 #### [place] [address] [facility] [place] #### VD25H #### [facility] [address] [place] [address] Sodium molar conc 139 mmol/L Normal 135-[address] [facility] Comment on above: Performed By: #### H EMDF, PT, BMP3M, PHOS3, MG3, CK3 #### [facility] [address] [facility] [place] #### VD25H #### [facility] [address] [place] [address] CR Chest Portableon 07-14-19 19 CR Chest Portable Patient Name: KATHYA HOOPER Diagnostic Radiology Exam Date/Time 07/13/2018 06:05:45 EDT Exam CR Chest Portable Ordering Physician MARIA EUGENIA PEREZ Accession Number [id number] CPT4 Codes 02198 () Reason For Exam ETT placement Report [...] Transcribed Date and Time: 07/13/2018 6:33 Normal [facility] Calcium,Ionizedon 07-13-2018 Ionized Ca,Measured 4.10 mg/dL Low 4.30-5.20 [facility] Comment on above: Performed By: #### H EMDF, PT, BMP3M, PHOS3, MG3, CK3 #### [place] [address] [address] [place] #### VD25H #### [facility] [address] [place] [address] pH, Ionized Calcium 7.40 Normal 7.31-7.46 [facility] Comment on above: Performed By: #### H EMDF, PT, BMP3M, PHOS3, MG3, CK3 #### [place] [address] [address] [place] #### VD25H #### [facility] [address] [place] [address] Hemogram w/ Autodiffon 07-13 Abs Baso Cnt 0.0 10*3/uL Normal 0.0-0.2 [facility] Comment on above: Performed By: #### H EMDF, PT, BMP3M, PHOS3, MG3, CK3 #### [place] [address] [address] [place] #### VD25H #### [facility] [address] [place] [address] Abs Neutrophile Cnt 11.2 10*3/uL High 1.8-7.0 [facility] Comment on above: Performed By: #### H EMDF, PT, BMP3M, PHOS3, MG3, CK3 #### [place] [address] [address] [place] #### VD25H #### [facility] [address] [place] [address] Basophils/100 WBC (Bld) 0.3 % Normal 0.0-2.0 [facility] Comment on above: Performed By: #### H EMDF, PT, BMP3M, PHOS3, MG3, CK3 #### [address] [place], [place] #### VD25H #### [facility] [address] [place] [address] Eosinophils #/vol (Bld) 0.2 10*3/uL Normal 0.0-0.5 [facility] Comment on above: Performed By: #### H EMDF, PT, BMP3M, PHOS3, MG3, CK3 #### [facility] [address] [place], [place] #### VD25H #### [facility] [address] [place] [address] Eosinophils/100 WBC (Bld) 1.1 % Normal 1.0-6.0 [facility] Comment on above: Performed By: #### H EMDF, PT, BMP3M, PHOS3, MG3, CK3 #### [address] #### VD25H #### [facility] [address] [place] [address] Erythrocyte distribution width Ratio (RBC) 13.9 % Normal 11.5-14.5 [facility] Comment on above: Performed By: #### H EMDF, PT, BMP3M, PHOS3, MG3, CK3 #### [address] #### VD25H #### [facility] [address] [place] [address] Granulocytes/100 WBC (Bld) 82.2 % High 40.0-80.0 [facility] Comment on above: Performed By: #### H EMDF, PT, BMP3M, PHOS3, MG3, CK3 #### [address] #### VD25H #### [facility] [address] [place] [address] Hematocrit Volume Fraction (Bld) 36.7 % Low 40.0-52.0 [facility] Comment on above: Performed By: #### H EMDF, PT, BMP3M, PHOS3, MG3, CK3 #### [address] #### VD25H #### [facility] [address] [place] [address] Hemoglobin mass conc (Bld) 12.6 g/dL Low 13.0-18.0 [facility] Comment on above: Performed By: #### H EMDF, PT, BMP3M, PHOS3, MG3, CK3 #### [address] #### VD25H #### [facility] [address] [place] [address] Lymphocytes #/vol (Bld) 1.1 10*3/uL Normal 1.0-4.3 [facility] Comment on above: Performed By: #### H EMDF, PT, BMP3M, PHOS3, MG3, CK3 #### [address] #### VD25H #### [place] [address] [place] [address] Lymphocytes/100 WBC (Bld) 8.2 % Low 20.0-40.0 [facility] Comment on above: Performed By: #### H EMDF, PT, BMP3M, PHOS3, MG3, CK3 #### [address] #### VD25H #### [facility] [address] [place] [address] MCH Entitic mass (RBC) 29.6 pg Normal 26.0-34.0 [facility] Comment on above: Performed By: #### H EMDF, PT, BMP3M, PHOS3, MG3, CK3 #### [address] #### VD25H #### [facility] [address] [place] [address] MCHC mass conc (RBC) 34.4 % Normal 32.0-36.0 [facility] Comment on above: Performed By: #### H EMDF, PT, BMP3M, PHOS3, MG3, CK3 #### [address] #### VD25H #### [facility] [address] [place] [address] MCV Entitic volume (RBC) 86.2 fL Normal 80.0-98.0 [facility] Comment on above: Performed By: #### H EMDF, PT, BMP3M, PHOS3, MG3, CK3 #### [address] #### VD25H #### [facility] [address] [place] [address] Monocytes #/vol (Bld) 1.1 10*3/uL High 0.0-0.8 [facility] Comment on above: Performed By: #### H EMDF, PT, BMP3M, PHOS3, MG3, CK3 #### [address] #### VD25H #### [facility] [address] [place] [address] Monocytes/100 WBC (Bld) 8.2 % Normal 2.0-10.0 [facility] Comment on above: Performed By: #### H EMDF, PT, BMP3M, PHOS3, MG3, CK3 #### [address] #### VD25H #### [facility] [address] [place] [address] Platelet mean volume Entitic volume (Bld) 8.1 fL Normal 7.4-10.4 [facility] Comment on above: Performed By: #### H EMDF, PT, BMP3M, PHOS3, MG3, CK3 #### [address] #### VD25H #### [facility] [address] [place] [address] Platelets #/vol (Bld) 194 10*3/uL Normal 140-440 [facility] Comment on above: Performed By: #### H EMDF, PT, BMP3M, PHOS3, MG3, CK3 #### [address], [place] #### VD25H #### [facility] [address] [place] [address] RBC #/vol (Bld) 4.26 10*6/uL Low 4.40-5.90 [facility] Comment on above: Performed By: #### H EMDF, PT, BMP3M, PHOS3, MG3, CK3 #### [address] #### VD25H #### [facility] [address] [place] [address] WBC #/vol (Bld) 13.7 10*3/uL High 3.6-10.[address] [facility] Comment on above: Performed By: #### H EMDF, PT, BMP3M, PHOS3, MG3, CK3 #### [address] #### VD25H #### [facility] [address] [place] [address] Arterial Blood Gaseson 07-12 CO2 molar conc 26.4 mmol/L Normal 23.0-27.0 [facility] Comment on above: Performed By: #### H EMDF, PT, BMP3M, PHOS3, MG3, CK3 #### [address] #### VD25H #### [facility] [address] [place] [address] HCO3 molar conc (Bld) 25.2 mmol/L High 21.0-25.0 [facility] Comment on above: Performed By: #### H EMDF, PT, BMP3M, PHOS3, MG3, CK3 #### [address] #### VD25H #### [facility] [address] [place] [address] Hemoglobin mass conc (Bld) 13.9 g/dL Normal [facility] Comment on above: Performed By: #### H EMDF, PT, BMP3M, PHOS3, MG3, CK3 #### [place] [address] [address] [place], [place] #### VD25H #### [facility] [address] [place] [address] Oxygen ppres (Bld) 83.9 mm[Hg] Normal 80.0-100.0 [facility] Comment on above: Performed By: #### H EMDF, PT, BMP3M, PHOS3, MG3, CK3 #### [address] #### VD25H #### [facility] [address] [place] [address] Oxygen saturation in Blood 96.3 % Normal 95.0-100.0 [facility] Comment on above: Performed By: #### H EMDF, PT, BMP3M, PHOS3, MG3, CK3 #### [address] #### VD25H #### [facility] [address] [place] [address] pCO2 38.2 mm[Hg] Normal 35.0-45.0 [facility] Comment on above: Performed By: #### H EMDF, PT, BMP3M, PHOS3, MG3, CK3 #### [address] #### VD25H #### [facility] [address] [place] [address] pH (Bld) 7.437 Normal 7.350-7.450 [facility] Comment on above: Performed By: #### H EMDF, PT, BMP3M, PHOS3, MG3, CK3 #### [address] #### VD25H #### [facility] [address] [place] [address] Std Base Excess 1.1 mmol/L Normal -3.0-3.0 [facility] Comment on above: Performed By: #### H EMDF, PT, BMP3M, PHOS3, MG3, CK3 #### [place] [address] [address] [place], [place] #### VD25H #### [facility] [address] [place] [address] FIO2 50% Normal [facility] Comment on above: Performed By: #### H EMDF, PT, BMP3M, PHOS3, MG3, CK3 #### [place] [address] [address] [place] #### VD25H #### [facility] [address] [place] [address] CO2 molar conc 27.2 mmol/L High 23.0-27.0 [facility] Comment on above: Performed By: #### H EMDF, PT, BMP3M, PHOS3, MG3, CK3 #### [place] [address] [place], [place] #### VD25H #### [facility] [address] [place] [address] HCO3 molar conc (Bld) 26.1 mmol/L High 21.0-25.0 [facility] Comment on above: Performed By: #### H EMDF, PT, BMP3M, PHOS3, MG3, CK3 #### [place] [address] [address] [place] #### VD25H #### [facility] [address] [place] [address] Hemoglobin mass conc (Bld) 14.7 g/dL Normal [facility] Comment on above: Performed By: #### H EMDF, PT, BMP3M, PHOS3, MG3, CK3 #### [address] #### VD25H #### [facility] [address] [place] [address] Oxygen ppres (Bld) 125.7 mm[Hg] High 80.0-100.0 [facility] Comment on above: Performed By: #### H EMDF, PT, BMP3M, PHOS3, MG3, CK3 #### [address] #### VD25H #### [facility] [address] [place] [address] Oxygen saturation in Blood 98.6 % Normal 95.0-100.0 [facility] Comment on above: Performed By: #### H EMDF, PT, BMP3M, PHOS3, MG3, CK3 #### [address] [place], [place] #### VD25H #### [facility] [address] [place] [address] pCO2 37.5 mm[Hg] Normal 35.0-45.0 [facility] Comment on above: Performed By: #### H EMDF, PT, BMP3M, PHOS3, MG3, CK3 #### [address] #### VD25H #### [place] [address] [place] [address] pH (Bld) 7.460 High 7.350-7.450 [facility] Comment on above: Performed By: #### H EMDF, PT, BMP3M, PHOS3, MG3, CK3 #### [address] #### VD25H #### [place] [address] [place] [address] Std Base Excess 2.4 mmol/L Normal -3.0-3.0 [facility] Comment on above: Performed By: #### H EMDF, PT, BMP3M, PHOS3, MG3, CK3 #### [address] #### VD25H #### [place] [address] [place] [address] FIO2 62.5 Normal [facility] Comment on above: Performed By: #### H EMDF, PT, BMP3M, PHOS3, MG3, CK3 #### [place] [address] [address] [place] #### VD25H #### [facility] [address] [place] [address] Basic Metabolic Panelon 06-29 Anion gap molar conc 6 Normal [facility] Comment on above: Performed By: #### H EMDF, PT, BMP3M, PHOS3, MG3, CK3 #### [place] [address] [address] [place] #### VD25H #### [facility] [address] [place] [address] Calcium mass conc 8.0 mg/dL Low 8.4-10.[address] [facility] Comment on above: Performed By: #### H EMDF, PT, BMP3M, PHOS3, MG3, CK3 #### [address] #### VD25H #### [place] [address] [place] [address] CO2 molar conc 28 mmol/L Normal 22-30 [facility] Comment on above: Performed By: #### H EMDF, PT, BMP3M, PHOS3, MG3, CK3 #### [address] [place], [place] #### VD25H #### [facility] [address] [place] [address] Creatinine mass conc 0.62 mg/dL Normal 0.52-1.25 [facility] Comment on above: Performed By: #### H EMDF, PT, BMP3M, PHOS3, MG3, CK3 #### [address] #### VD25H #### [place] [address] [place] [address] GFR/1.73 sq M predicted among blacks MDRD vol rate/area (S/P/Bld) mL/min/{1.73_m2} Normal >60 [facility] Comment on above: Performed By: #### H EMDF, PT, BMP3M, PHOS3, MG3, CK3 #### [facility] [address] [place], [place] #### VD25H #### [facility] [address] [place] [address] GFR/1.73 sq M predicted among non-blacks MDRD vol rate/area (S/P/Bld) mL/min/{1.73_m2} Normal >60 [facility] Comment on above: Result Comment: Sour ce- MDRD equation with creatinine calibration to IDMS(NKDEP) eGFR not recommended for drug dose adjustment Performed By: #### H EMDF, PT, BMP3M, PHOS3, MG3, CK3 #### [address] #### VD25H #### [facility] [address] [place] [address] Glucose mass conc 125 mg/dL High 70-100 [facility] Comment on above: Performed By: #### H EMDF, PT, BMP3M, PHOS3, MG3, CK3 #### [place] [address] [place], [place] #### VD25H #### [facility] [address] [place] [address] Urea nitrogen mass conc 12 mg/dL Normal 7-20 [facility] Comment on above: Performed By: #### H EMDF, PT, BMP3M, PHOS3, MG3, CK3 #### [facility] [address] [facility] #### VD25H #### [facility] [address] [place] [address] Chloride molar conc 104 mmol/L Normal 98-107 [facility] Comment on above: Performed By: #### H EMDF, PT, BMP3M, PHOS3, MG3, CK3 #### [address], [place] #### VD25H #### [facility] [address] [place] [address] Potassium molar conc 3.6 mmol/L Normal 3.5-5.1 [facility] Comment on above: Performed By: #### H EMDF, PT, BMP3M, PHOS3, MG3, CK3 #### [facility] [address] [place] [address] #### VD25H #### [facility] [address] [place] [address] Sodium molar conc 138 mmol/L Normal 135-[address] [facility] Comment on above: Performed By: #### H EMDF, PT, BMP3M, PHOS3, MG3, CK3 #### [facility] [address] [place] [address] #### VD25H #### [facility] [address] [place] [address] CR Chest Portableon 07-13-19 19 CR Chest Portable Patient Name: KATHYA HOOPER Diagnostic Radiology Exam Date/Time 07/12/2018 10:18:11 EDT Exam CR Chest Portable Ordering Physician MARIA EUGENIA PEREZ Accession Number [id number] CPT4 Codes 77134 () Reason For Exam ETT Placement Report [...] Transcribed Date and Time: 07/12/2018 1:21 Normal [facility] CR Chest Portable Patient Name: KATHYA HOOPER Diagnostic Radiology Exam Date/Time 07/12/2018 06:19:03 EDT Exam CR Chest Portable Ordering Physician MD NATE, [facility] Accession Number [id number] CPT4 Codes 44625 () Reason For Exam dyspnea Report PORTABLE [...] Transcribed Date and Time: 07/12/2018 8:01 Normal [facility] Hemogram w/ Autodiffon 07-12 Abs Baso Cnt 0.0 10*3/uL Normal 0.0-0.2 [facility] Comment on above: Performed By: #### H EMDF, PT, BMP3M, PHOS3, MG3, CK3 #### [address] #### VD25H #### [facility] [address] [place] [address] Abs Neutrophile Cnt 10.2 10*3/uL High 1.8-7.0 [facility] Comment on above: Performed By: #### H EMDF, PT, BMP3M, PHOS3, MG3, CK3 #### [address] #### VD25H #### [facility] [address] [place] [address] Basophils/100 WBC (Bld) 0.4 % Normal 0.0-2.0 [facility] Comment on above: Performed By: #### H EMDF, PT, BMP3M, PHOS3, MG3, CK3 #### [address] #### VD25H #### [facility] [address] [place] [address] Eosinophils #/vol (Bld) 0.1 10*3/uL Normal 0.0-0.5 [facility] Comment on above: Performed By: #### H EMDF, PT, BMP3M, PHOS3, MG3, CK3 #### [address] #### VD25H #### [facility] [address] [place] [address] Eosinophils/100 WBC (Bld) 0.6 % Low 1.0-6.0 [facility] Comment on above: Performed By: #### H EMDF, PT, BMP3M, PHOS3, MG3, CK3 #### [address] #### VD25H #### [facility] [address] [place] [address] Erythrocyte distribution width Ratio (RBC) 13.5 % Normal 11.5-14.5 [facility] Comment on above: Performed By: #### H EMDF, PT, BMP3M, PHOS3, MG3, CK3 #### [facility] [address] [place] #### VD25H #### [facility] [address] [place] [address] Granulocytes/100 WBC (Bld) 84.7 % High 40.0-80.0 [facility] Comment on above: Performed By: #### H EMDF, PT, BMP3M, PHOS3, MG3, CK3 #### [address] [place] [address] [place], [place] #### VD25H #### [facility] [address] [place] [address] Hematocrit Volume Fraction (Bld) 39.7 % Low 40.0-52.0 [facility] Comment on above: Performed By: #### H EMDF, PT, BMP3M, PHOS3, MG3, CK3 #### [address] [address] [place] #### VD25H #### [facility] [address] [place] [address] Hemoglobin mass conc (Bld) 13.5 g/dL Normal 13.0-18.0 [facility] Comment on above: Performed By: #### H EMDF, PT, BMP3M, PHOS3, MG3, CK3 #### [facility] [address] [place] #### VD25H #### [facility] [address] [place] [address] Lymphocytes #/vol (Bld) 0.9 10*3/uL Low 1.0-4.3 [facility] Comment on above: Performed By: #### H EMDF, PT, BMP3M, PHOS3, MG3, CK3 #### [address] #### VD25H #### [facility] [address] [place] [address] Lymphocytes/100 WBC (Bld) 7.6 % Low 20.0-40.0 [facility] Comment on above: Performed By: #### H EMDF, PT, BMP3M, PHOS3, MG3, CK3 #### [address] [address] [place] #### VD25H #### [facility] [address] [place] [address] MCH Entitic mass (RBC) 29.6 pg Normal 26.0-34.0 [facility] Comment on above: Performed By: #### H EMDF, PT, BMP3M, PHOS3, MG3, CK3 #### [address] #### VD25H #### [facility] [address] [place] [address] MCHC mass conc (RBC) 34.1 % Normal 32.0-36.0 [facility] Comment on above: Performed By: #### H EMDF, PT, BMP3M, PHOS3, MG3, CK3 #### [address] #### VD25H #### [facility] [address] [place] MCV Entitic volume (RBC) 87.0 fL Normal 80.0-98.0 [facility] Comment on above: Performed By: #### H EMDF, PT, BMP3M, PHOS3, MG3, CK3 #### [address] #### VD25H #### [facility] [address] [facility] [place] [address] Monocytes #/vol (Bld) 0.8 10*3/uL Normal 0.0-0.8 [facility] Comment on above: Performed By: #### H EMDF, PT, BMP3M, PHOS3, MG3, CK3 #### [address] #### VD25H #### [facility] [address] [place] [address] Monocytes/100 WBC (Bld) 6.7 % Normal 2.0-10.0 [facility] Comment on above: Performed By: #### H EMDF, PT, BMP3M, PHOS3, MG3, CK3 #### [address] #### VD25H #### [facility] [address] [place] [address] Platelet mean volume Entitic volume (Bld) 8.4 fL Normal 7.4-10.4 [facility] Comment on above: Performed By: #### H EMDF, PT, BMP3M, PHOS3, MG3, CK3 #### [address] #### VD25H #### [place] [address] [place] [address] Platelets #/vol (Bld) 185 10*3/uL Normal 140-440 [facility] Comment on above: Performed By: #### H EMDF, PT, BMP3M, PHOS3, MG3, CK3 #### [address] #### VD25H #### [facility] [address] [place] [address] RBC #/vol (Bld) 4.57 10*6/uL Normal 4.40-5.[address] [facility] Comment on above: Performed By: #### H EMDF, PT, BMP3M, PHOS3, MG3, CK3 #### [address] #### VD25H #### [facility] [address] [place] [address] WBC #/vol (Bld) 12.1 10*3/uL High 3.6-10.7 [facility] Comment on above: Performed By: #### H EMDF, PT, BMP3M, PHOS3, MG3, CK3 #### [address] [place] [address] #### VD25H #### [facility] [employer] [facility] [address] [place] [address] VL Venous Duplex US Lower Ex t Bilateralon 07-12-2018 VL Venous Duplex US Lower Ext Bilateral Patient Name: KATHYA HOOPER Ultrasound Exam Date/Time 07/12/2018 17:20:46 EDT Exam VL Venous Duplex US Lower Ext Bilateral Ordering Physician MD MOISÉS, JOSHUA Accession Number [id number] CPT4 Codes 86463 () Reason For Exam leg swelling Report [facility] --- Lower Extremity Venous Duplex Report Patient Name: Kathya Hooper : 1955 Study Date: 07/12/2018 W (63yrs) Age: 63 Account: [id number] Gender: M Loc: [id number] BP: Ordering: Joshua Avelar Technologist: Ordering Physician: Joshua Avelar Willow Worker: Elizabeth aSnford RVT Interpreting Physician: Krysta Arora --- Location: [facility] --- INDICATIONS: Edema. bilateral calves. --- [...] performed. The images were obtained using a [employer]vo E9 vascular ultrasound machine. --- VENOUS FLOW [...] ---------+-------+--- --+ Electronically signed by: Krysta Arora [id number] Final Dictated: 07/13/2018 8:45 am Dictating Physician: KRYSTA ARORA Signed Date and Time: 07/13/2018 8:45 am Signed by: KRYSTA ARORA Normal [employer] Basic Metabolic Panelon 06-29 Calcium mass conc 7.8 mg/dL Low 8.4-10.4 [employer] [facility] Comment on above: Performed By: #### H EMDF, PT, BMP3M, PHOS3, MG3, CK3 #### [employer] [address] [place] [address] #### VD25H #### [employer] [address] [place] [address] Anion gap molar conc 4 Normal [facility] Comment on above: Performed By: #### H EMDF, PT, BMP3M, PHOS3, MG3, CK3 #### [facility] [address] [place] [address] #### VD25H #### [facility] [address] [place] [address] CO2 molar conc 26 mmol/L Normal 22-30 [facility] Comment on above: Performed By: #### H EMDF, PT, BMP3M, PHOS3, MG3, CK3 #### [address] [address] [place], [place] #### VD25H #### [facility] [address] [place] [address] Glucose mass conc 118 mg/dL High 70-[address] [facility] Comment on above: Performed By: #### H EMDF, PT, BMP3M, PHOS3, MG3, CK3 #### [address] [address] [place] #### VD25H #### [facility] [address] [place] [address] Urea nitrogen mass conc 19 mg/dL Normal 7-20 [facility] Comment on above: Performed By: #### H EMDF, PT, BMP3M, PHOS3, MG3, CK3 #### [place] [address] [place] #### VD25H #### [facility] [address] [place] [address] Creatinine mass conc 0.74 mg/dL Normal 0.52-1.25 [facility] Comment on above: Performed By: #### H EMDF, PT, BMP3M, PHOS3, MG3, CK3 #### [place] [address] [address] [facility] [place] #### VD25H #### [facility] [address] [place] [address] GFR/1.73 sq M predicted among blacks MDRD vol rate/area (S/P/Bld) mL/min/{1.73_m2} Normal >60 [facility] Comment on above: Performed By: #### H EMDF, PT, BMP3M, PHOS3, MG3, CK3 #### [address] [place] [address] [place] #### VD25H #### [facility] [address] [place] [address] GFR/1.73 sq M predicted among non-blacks MDRD vol rate/area (S/P/Bld) mL/min/{1.73_m2} Normal >[address] [facility] Comment on above: Result Comment: Sour ce- MDRD equation with creatinine calibration to IDMS(NKDEP) eGFR not recommended for drug dose adjustment Performed By: #### H EMDF, PT, BMP3M, PHOS3, MG3, CK3 #### [address] [address] [place] #### VD25H #### [facility] [address] [place] [address] Chloride molar conc 112 mmol/L High 98-107 [facility] Comment on above: Performed By: #### H EMDF, PT, BMP3M, PHOS3, MG3, CK3 #### [address] [place] #### VD25H #### [facility] [address] [place] [address] Potassium molar conc 3.8 mmol/L Normal 3.5-5.1 [facility] Comment on above: Performed By: #### H EMDF, PT, BMP3M, PHOS3, MG3, CK3 #### [address] [address] [address] [place] #### VD25H #### [facility] [address] [place] [address] Sodium molar conc 141 mmol/L Normal 135-145 [facility] Comment on above: Performed By: #### H EMDF, PT, BMP3M, PHOS3, MG3, CK3 #### [address] [address] [place] [address] #### VD25H #### [facility] [address] [place] [address] CR Chest 1 View Frontalon CR Chest 1 View Frontal Patient Name: KATHYA FELDER Diagnostic Radiology Exam Date/Time 07/11/2018 06:36:48 EDT Exam CR Chest 1 View Frontal Ordering Physician MD MOISÉS, JOSHUA Accession Number [id number] CPT4 Codes 51928 () Reason For Exam dyspnea Report EXAM [...] Transcribed Date and Time: 07/11/2018 7:05 Normal [facility] Hemogram w/ Autodiffon 07-11 Abs Baso Cnt 0.0 10*3/uL Normal 0.0-0.2 [facility] Comment on above: Performed By: #### H EMDF, PT, BMP3M, PHOS3, MG3, CK3 #### [facility] [address] [place] [address] #### VD25H #### [facility] [address] [place] [address] Abs Neutrophile Cnt 8.8 10*3/uL High 1.8-7.0 [facility] Comment on above: Performed By: #### H EMDF, PT, BMP3M, PHOS3, MG3, CK3 #### [address] #### VD25H #### [facility] [address] [place] [address] Basophils/100 WBC (Bld) 0.4 % Normal 0.0-2.0 [facility] Comment on above: Performed By: #### H EMDF, PT, BMP3M, PHOS3, MG3, CK3 #### [address] #### VD25H #### [place] [address] [place] [address] Eosinophils #/vol (Bld) 0.0 10*3/uL Normal 0.0-0.5 [facility] Comment on above: Performed By: #### H EMDF, PT, BMP3M, PHOS3, MG3, CK3 #### [address] #### VD25H #### [place] [address] [place] [address] Eosinophils/100 WBC (Bld) 0.4 % Low 1.0-6.0 [facility] Comment on above: Performed By: #### H EMDF, PT, BMP3M, PHOS3, MG3, CK3 #### [address] #### VD25H #### [place] [address] [place] [address] Erythrocyte distribution width Ratio (RBC) 13.7 % Normal 11.5-14.5 [facility] Comment on above: Performed By: #### H EMDF, PT, BMP3M, PHOS3, MG3, CK3 #### [address], [place] #### VD25H #### [facility] [address] [place] [address] Granulocytes/100 WBC (Bld) 80.6 % High 40.0-80.0 [facility] Comment on above: Performed By: #### H EMDF, PT, BMP3M, PHOS3, MG3, CK3 #### [address] #### VD25H #### [facility] [address] [place] [address] Hematocrit Volume Fraction (Bld) 32.8 % Low 40.0-52.0 [facility] Comment on above: Performed By: #### H EMDF, PT, BMP3M, PHOS3, MG3, CK3 #### [address] #### VD25H #### [facility] [address] [place] [address] Hemoglobin mass conc (Bld) 11.4 g/dL Low 13.0-18.0 [facility] Comment on above: Performed By: #### H EMDF, PT, BMP3M, PHOS3, MG3, CK3 #### [address] #### VD25H #### [facility] [address] [place] [address] Lymphocytes #/vol (Bld) 1.3 10*3/uL Normal 1.0-4.3 [facility] Comment on above: Performed By: #### H EMDF, PT, BMP3M, PHOS3, MG3, CK3 #### [address] #### VD25H #### [facility] [address] [place] [address] Lymphocytes/100 WBC (Bld) 11.5 % Low 20.0-40.0 [facility] Comment on above: Performed By: #### H EMDF, PT, BMP3M, PHOS3, MG3, CK3 #### [address] [place] #### VD25H #### [facility] [address] [place] [address] MCH Entitic mass (RBC) 30.2 pg Normal 26.0-34.0 [facility] Comment on above: Performed By: #### H EMDF, PT, BMP3M, PHOS3, MG3, CK3 #### [address] [address] [place] #### VD25H #### [facility] [address] [place] [address] MCHC mass conc (RBC) 34.7 % Normal 32.0-36.0 [facility] Comment on above: Performed By: #### H EMDF, PT, BMP3M, PHOS3, MG3, CK3 #### [address] #### VD25H #### [facility] [address] [place] [address] MCV Entitic volume (RBC) 86.9 fL Normal 80.0-98.0 [facility] Comment on above: Performed By: #### H EMDF, PT, BMP3M, PHOS3, MG3, CK3 #### [address] #### VD25H #### [facility] [address] [place] [address] Monocytes #/vol (Bld) 0.8 10*3/uL Normal 0.0-0.8 [facility] Comment on above: Performed By: #### H EMDF, PT, BMP3M, PHOS3, MG3, CK3 #### [address] #### VD25H #### [facility] [address] [place] [address] Monocytes/100 WBC (Bld) 7.1 % Normal 2.0-10.0 [facility] Comment on above: Performed By: #### H EMDF, PT, BMP3M, PHOS3, MG3, CK3 #### [address] [place] #### VD25H #### [facility] [address] [place] [address] Platelet mean volume Entitic volume (Bld) 8.8 fL Normal 7.4-10.4 [facility] Comment on above: Performed By: #### H EMDF, PT, BMP3M, PHOS3, MG3, CK3 #### [address] [place] #### VD25H #### [facility] [address] [place] [address] Platelets #/vol (Bld) 158 10*3/uL Normal 140-440 [facility] Comment on above: Performed By: #### H EMDF, PT, BMP3M, PHOS3, MG3, CK3 #### [address] #### VD25H #### [facility] [address] [place] [address] RBC #/vol (Bld) 3.78 10*6/uL Low 4.40-5.[address] [facility] Comment on above: Performed By: #### H EMDF, PT, BMP3M, PHOS3, MG3, CK3 #### [address] #### VD25H #### [facility] [address] [place] [address] WBC #/vol (Bld) 10.9 10*3/uL High 3.6-10.7 [facility] Comment on above: Performed By: #### H EMDF, PT, BMP3M, PHOS3, MG3, CK3 #### [address] #### VD25H #### [facility] [address] [place] [address] Magnesiumon 07-11-2018 Magnesium mass conc 2.3 mg/dL Normal 1.6-2.3 [facility] Comment on above: Performed By: #### H EMDF, PT, BMP3M, PHOS3, MG3, CK3 #### [facility] [address] [place] #### VD25H #### [facility] [address] [place] [address] Phosphoruson 07-11-2018 Phosphate mass conc 2.8 mg/dL Normal 2.5-4.5 [facility] Comment on above: Performed By: #### H EMDF, PT, BMP3M, PHOS3, MG3, CK3 #### [address] [place] [address] [place], [place] #### VD25H #### [facility] [address] [place] [address] Basic Metabolic Panelon 06-29 Calcium mass conc 8.9 mg/dL Normal 8.4-10.4 [facility] Comment on above: Performed By: #### H EMDF, PT, BMP3M, PHOS3, MG3, CK3 #### [address] #### VD25H #### [facility] [address] [place] [address] Glucose mass conc 133 mg/dL High 70-100 [facility] Comment on above: Performed By: #### H EMDF, PT, BMP3M, PHOS3, MG3, CK3 #### [address] [address] [place] #### VD25H #### [facility] [address] [place] [address] Anion gap molar conc 4 Normal [facility] Comment on above: Performed By: #### H EMDF, PT, BMP3M, PHOS3, MG3, CK3 #### [address] [place] #### VD25H #### [facility] [address] [place] [address] CO2 molar conc 27 mmol/L Normal 22-30 [facility] Comment on above: Performed By: #### H EMDF, PT, BMP3M, PHOS3, MG3, CK3 #### [address] [address] #### VD25H #### [facility] [address] [place] [address] Creatinine mass conc 0.69 mg/dL Normal 0.52-1.25 [facility] Comment on above: Performed By: #### H EMDF, PT, BMP3M, PHOS3, MG3, CK3 #### [address] #### VD25H #### [facility] [address] [place] [address] GFR/1.73 sq M predicted among blacks MDRD vol rate/area (S/P/Bld) mL/min/{1.73_m2} Normal >60 [facility] Comment on above: Performed By: #### H EMDF, PT, BMP3M, PHOS3, MG3, CK3 #### [address] #### VD25H #### [facility] [address] [place] [address] GFR/1.73 sq M predicted among non-blacks MDRD vol rate/area (S/P/Bld) mL/min/{1.73_m2} Normal >[address] [facility] Comment on above: Result Comment: Sour ce- MDRD equation with creatinine calibration to IDMS(NKDEP) eGFR not recommended for drug dose adjustment Performed By: #### H EMDF, PT, BMP3M, PHOS3, MG3, CK3 #### [address] #### VD25H #### [place] [address] [place] [address] Urea nitrogen mass conc 16 mg/dL Normal 7-20 [facility] Comment on above: Performed By: #### H EMDF, PT, BMP3M, PHOS3, MG3, CK3 #### [facility] [address] [place] #### VD25H #### [facility] [address] [place] [address] Potassium molar conc 4.1 mmol/L Normal 3.5-5.1 [facility] Comment on above: Performed By: #### H EMDF, PT, BMP3M, PHOS3, MG3, CK3 #### [place] [address] [place] #### VD25H #### [facility] [address] [place] [address] Sodium molar conc 142 mmol/L Normal 135-145 [facility] Comment on above: Performed By: #### H EMDF, PT, BMP3M, PHOS3, MG3, CK3 #### [place] [address] [address] [place] #### VD25H #### [facility] [address] [place] [address] Chloride molar conc 110 mmol/L High 98-107 [facility] Comment on above: Performed By: #### H EMDF, PT, BMP3M, PHOS3, MG3, CK3 #### [place] [address] [address] [place] #### VD25H #### [facility] [address] [place] [address] [facility] CK enzyme act/vol 1291 U/L High 30-170 [facility] Comment on above: Performed By: #### H EMDF, PT, BMP3M, PHOS3, MG3, CK3 #### [place] [address] [address] [place] #### VD25H #### [facility] [address] [place] [address] CK enzyme act/vol 1382 U/L High 30-170 [facility] Comment on above: Performed By: #### H EMDF, PT, BMP3M, PHOS3, MG3, CK3 #### [facility] [employer] [facility] [address] [place] [address] #### VD25H #### [facility] [address] [place] [address] CR Chest 1 View Frontalon CR Chest 1 View Frontal Patient Name: KATHYA FELDER Diagnostic Radiology Exam Date/Time 07/10/2018 06:38:06 EDT Exam CR Chest 1 View Frontal Ordering Physician MD NATE, NICOLE LEYDI Accession Number [id number] CPT4 Codes 42006 () Reason For Exam dyspnea Report EXAMINATION: [...] Date and Time: 07/10/2018 8:57 Normal [facility] [employer] [facility] Hemogram w/ Autodiffon 07-10 Abs Baso Cnt 0.0 10*3/uL Normal 0.0-0.2 [facility] Comment on above: Performed By: #### H EMDF, PT, BMP3M, PHOS3, MG3, CK3 #### [facility] [employer] [facility] [address] [place], [place] #### VD25H #### [facility] [address] [place] [address] Abs Neutrophile Cnt 12.2 10*3/uL High 1.8-7.0 [facility] Comment on above: Performed By: #### H EMDF, PT, BMP3M, PHOS3, MG3, CK3 #### [facility] [address] [place] #### VD25H #### [facility] [address] [place] [address] Basophils/100 WBC (Bld) 0.3 % Normal 0.0-2.0 [facility] Comment on above: Performed By: #### H EMDF, PT, BMP3M, PHOS3, MG3, CK3 #### [place] [address] [place], [place] #### VD25H #### [facility] [address] [place] [address] Eosinophils #/vol (Bld) 0.0 10*3/uL Normal 0.0-0.5 [facility] Comment on above: Performed By: #### H EMDF, PT, BMP3M, PHOS3, MG3, CK3 #### [address] [place], [place] #### VD25H #### [facility] [address] [place] [address] Eosinophils/100 WBC (Bld) 0.0 % Low 1.0-6.0 [facility] Comment on above: Performed By: #### H EMDF, PT, BMP3M, PHOS3, MG3, CK3 #### [address] #### VD25H #### [facility] [address] [place] [address] Erythrocyte distribution width Ratio (RBC) 13.9 % Normal 11.5-14.5 [facility] Comment on above: Performed By: #### H EMDF, PT, BMP3M, PHOS3, MG3, CK3 #### [facility] [address] [place], [place] #### VD25H #### [facility] [address] [place] [address] Granulocytes/100 WBC (Bld) 89.5 % High 40.0-80.0 [facility] Comment on above: Performed By: #### H EMDF, PT, BMP3M, PHOS3, MG3, CK3 #### [place] [address] [address] [place], [place] #### VD25H #### [facility] [address] [place] [address] Hematocrit Volume Fraction (Bld) 36.0 % Low 40.0-52.0 [facility] Comment on above: Performed By: #### H EMDF, PT, BMP3M, PHOS3, MG3, CK3 #### [address] #### VD25H #### [facility] [address] [place] [address] Hemoglobin mass conc (Bld) 12.3 g/dL Low 13.0-18.0 [facility] Comment on above: Performed By: #### H EMDF, PT, BMP3M, PHOS3, MG3, CK3 #### [address] [place] #### VD25H #### [facility] [address] [place] [address] Lymphocytes #/vol (Bld) 0.6 10*3/uL Low 1.0-4.3 [facility] Comment on above: Performed By: #### H EMDF, PT, BMP3M, PHOS3, MG3, CK3 #### [address] #### VD25H #### [facility] [address] [place] [address] Lymphocytes/100 WBC (Bld) 4.3 % Low 20.0-40.0 [facility] Comment on above: Performed By: #### H EMDF, PT, BMP3M, PHOS3, MG3, CK3 #### [address] [place] #### VD25H #### [facility] [address] [place] [address] MCH Entitic mass (RBC) 29.8 pg Normal 26.0-34.0 [facility] Comment on above: Performed By: #### H EMDF, PT, BMP3M, PHOS3, MG3, CK3 #### [address] [place], [place] #### VD25H #### [facility] [address] [place] [address] MCHC mass conc (RBC) 34.2 % Normal 32.0-36.0 [facility] Comment on above: Performed By: #### H EMDF, PT, BMP3M, PHOS3, MG3, CK3 #### [address] #### VD25H #### [facility] [address] [place] [address] MCV Entitic volume (RBC) 87.1 fL Normal 80.0-98.0 [facility] Comment on above: Performed By: #### H EMDF, PT, BMP3M, PHOS3, MG3, CK3 #### [address] #### VD25H #### [facility] [address] [place] [address] Monocytes #/vol (Bld) 0.8 10*3/uL Normal 0.0-0.8 [facility] Comment on above: Performed By: #### H EMDF, PT, BMP3M, PHOS3, MG3, CK3 #### [address] #### VD25H #### [facility] [address] [place] [address] Monocytes/100 WBC (Bld) 5.9 % Normal 2.0-10.0 [facility] Comment on above: Performed By: #### H EMDF, PT, BMP3M, PHOS3, MG3, CK3 #### [address] [address] [place], [place] #### VD25H #### [facility] [address] [place] [address] Platelet mean volume Entitic volume (Bld) 8.4 fL Normal 7.4-10.4 [facility] Comment on above: Performed By: #### H EMDF, PT, BMP3M, PHOS3, MG3, CK3 #### [address] #### VD25H #### [facility] [address] [place] [address] Platelets #/vol (Bld) 155 10*3/uL Normal 140-440 [facility] Comment on above: Performed By: #### H EMDF, PT, BMP3M, PHOS3, MG3, CK3 #### [address] [place] #### VD25H #### [facility] [address] [place] [address] RBC #/vol (Bld) 4.13 10*6/uL Low 4.40-5.[address] [facility] Comment on above: Performed By: #### H EMDF, PT, BMP3M, PHOS3, MG3, CK3 #### [address] [address] [place], [place] #### VD25H #### [facility] [address] [place] [address] WBC #/vol (Bld) 13.6 10*3/uL High 3.6-10.[address] [facility] Comment on above: Performed By: #### H EMDF, PT, BMP3M, PHOS3, MG3, CK3 #### [address] #### VD25H #### [facility] [address] [place] [address] Magnesiumon 07-10-2018 Magnesium mass conc 2.3 mg/dL Normal 1.6-2.3 [facility] Comment on above: Performed By: #### H EMDF, PT, BMP3M, PHOS3, MG3, CK3 #### [facility] [address] [place] #### VD25H #### [facility] [address] [place] [address] Phosphoruson 07-10-2018 Phosphate mass conc 2.7 mg/dL Normal 2.5-4.5 [facility] Comment on above: Performed By: #### H EMDF, PT, BMP3M, PHOS3, MG3, CK3 #### [address] #### VD25H #### [facility] [address] [place] [address] Add on test from HISon 07-09 Add on test from HIS Accepted Normal [facility] Comment on above: Result Comment: Spec imen available & acceptable for analysis. Performed By: #### A DDON #### [address] Arterial Blood Gaseson 07-09 CO2 molar conc 24.5 mmol/L Normal 23.0-27.0 [facility] Comment on above: Performed By: #### H EMDF, PT, BMP3M, PHOS3, MG3, CK3 #### [address] [address] [place], [place] #### VD25H #### [facility] [address] [place] [address] HCO3 molar conc (Bld) 23.2 mmol/L Normal 21.0-25.0 [facility] Comment on above: Performed By: #### H EMDF, PT, BMP3M, PHOS3, MG3, CK3 #### [address] #### VD25H #### [facility] [address] [place] [address] Hemoglobin mass conc (Bld) 15.7 g/dL Normal ScreenOnly [facility] Comment on above: Performed By: #### H EMDF, PT, BMP3M, PHOS3, MG3, CK3 #### [facility] [address] [place] #### VD25H #### [facility] [address] [place] [address] Oxygen ppres (Bld) 397.4 mm[Hg] High 80.0-100.0 [facility] Comment on above: Performed By: #### H EMDF, PT, BMP3M, PHOS3, MG3, CK3 #### [address] [address] [place] #### VD25H #### [facility] [address] [place] [address] Oxygen saturation in Blood 99.2 % Normal 95.0-100.0 [facility] Comment on above: Performed By: #### H EMDF, PT, BMP3M, PHOS3, MG3, CK3 #### [address] [address] [place] #### VD25H #### [facility] [address] [place] [address] pCO2 42.3 mm[Hg] Normal 35.0-45.0 [facility] Comment on above: Performed By: #### H EMDF, PT, BMP3M, PHOS3, MG3, CK3 #### [facility] [address] [place] #### VD25H #### [facility] [address] [place] [address] pH (Bld) 7.357 Normal 7.350-7.450 [facility] Comment on above: Performed By: #### H EMDF, PT, BMP3M, PHOS3, MG3, CK3 #### [address] [address] [place] #### VD25H #### [facility] [address] [place] [address] Std Base Excess -2.3 mmol/L Normal -3.0-3.0 [facility] Comment on above: Performed By: #### H EMDF, PT, BMP3M, PHOS3, MG3, CK3 #### [address] [address] [place] #### VD25H #### [facility] [address] [place] [address] FIO2 100% Normal [facility] Comment on above: Performed By: #### H EMDF, PT, BMP3M, PHOS3, MG3, CK3 #### [address] [address] [place], [place] #### VD25H #### [facility] [address] [place] [address] Basic Metabolic Panelon 06-29 Calcium mass conc 8.6 mg/dL Normal 8.4-10.4 [facility] Comment on above: Performed By: #### H EMDF, PT, BMP3M, PHOS3, MG3, CK3 #### [address] [address] [facility] [place] #### VD25H #### [facility] [address] [place] [address] Glucose mass conc 150 mg/dL High 70-100 [facility] Comment on above: Performed By: #### H EMDF, PT, BMP3M, PHOS3, MG3, CK3 #### [address] [address] [address] [facility] #### VD25H #### [facility] [address] [place] [address] Anion gap molar conc 7 Normal [facility] Comment on above: Performed By: #### H EMDF, PT, BMP3M, PHOS3, MG3, CK3 #### [place] [address] [address] [facility] [place] #### VD25H #### [facility] [address] [place] [address] CO2 molar conc 26 mmol/L Normal 22-30 [facility] Comment on above: Performed By: #### H EMDF, PT, BMP3M, PHOS3, MG3, CK3 #### [address] [address] #### VD25H #### [facility] [address] [place] [address] Creatinine mass conc 0.80 mg/dL Normal 0.52-1.25 [facility] Comment on above: Performed By: #### H EMDF, PT, BMP3M, PHOS3, MG3, CK3 #### [address] [address] #### VD25H #### [facility] [address] [place] [address] GFR/1.73 sq M predicted among blacks MDRD vol rate/area (S/P/Bld) mL/min/{1.73_m2} Normal >60 [facility] Comment on above: Performed By: #### H EMDF, PT, BMP3M, PHOS3, MG3, CK3 #### [address] [address] #### VD25H #### [facility] [address] [place] [address] GFR/1.73 sq M predicted among non-blacks MDRD vol rate/area (S/P/Bld) mL/min/{1.73_m2} Normal >60 [facility] Comment on above: Result Comment: Sour ce- MDRD equation with creatinine calibration to IDMS(NKDEP) eGFR not recommended for drug dose adjustment Performed By: #### H EMDF, PT, BMP3M, PHOS3, MG3, CK3 #### [address] [address] #### VD25H #### [facility] [address] [place] [address] Urea nitrogen mass conc 16 mg/dL Normal 7-20 [facility] Comment on above: Performed By: #### H EMDF, PT, BMP3M, PHOS3, MG3, CK3 #### [address] [place] #### VD25H #### [facility] [address] [place] [address] Chloride molar conc 110 mmol/L High 98-107 [facility] Comment on above: Performed By: #### H EMDF, PT, BMP3M, PHOS3, MG3, CK3 #### [address] [address] [place] #### VD25H #### [facility] [address] [place] [address] Potassium molar conc 4.7 mmol/L Normal 3.5-5.1 [facility] Comment on above: Performed By: #### H EMDF, PT, BMP3M, PHOS3, MG3, CK3 #### [address] [address] [place] #### VD25H #### [facility] [address] [place] [address] Sodium molar conc 143 mmol/L Normal 135-145 [facility] Comment on above: Performed By: #### H EMDF, PT, BMP3M, PHOS3, MG3, CK3 #### [address] [place] #### VD25H #### [facility] [address] [place] [address] [facility] CK enzyme act/vol 1451 U/L High 30-170 [facility] Comment on above: Performed By: #### H EMDF, PT, BMP3M, PHOS3, MG3, CK3 #### [address] [place] #### VD25H #### [facility] [address] [place] [address] CK enzyme act/vol 3832 U/L High 30-170 [facility] Comment on above: Performed By: #### H EMDF, PT, BMP3M, PHOS3, MG3, CK3 #### [address] [address] [place] #### VD25H #### [facility] [address] [place] [address] CR Chest 1 View Frontalon CR Chest 1 View Frontal Patient Name: KATHYA FELDER Diagnostic Radiology Exam Date/Time 07/09/2018 06:21:56 EDT Exam CR Chest 1 View Frontal Ordering Physician MD NATE, [facility] Accession Number [id number] CPT4 Codes 45342 () Reason For Exam dyspnea Report CHEST [...] Transcribed Date and Time: 07/09/2018 6:39 Normal [facility] CR Chest Portableon 07-10-19 19 CR Chest Portable Patient Name: KATHYA HOOPER Diagnostic Radiology Exam Date/Time 07/09/2018 11:34:09 EDT Exam CR Chest Portable Ordering Physician INDRA JACOBSON Accession Number [id number] CPT4 Codes 37481 () Reason For Exam Central line placement [...] JOHN Transcribed Date and Time: 07/09/2018 1:01 [facility] CR Chest Portable Patient Name: KATHYA HOOPER Diagnostic Radiology Exam Date/Time 07/09/2018 03:05:20 EDT Exam CR Chest Portable [facility] Accession Number [id number] CPT4 Codes 56869 () Reason For Exam intubation Report CHEST PORTABLE: Indication: Inpatient; intubation Views: Portable frontal Comparison: 07/08/2018 at 22:16 Time: 07/09/2018 at 2:46 FINDINGS: Interval intubation with endotracheal tube approximately 4.2 cm above the level of the alma. An enteric tube has been placed with distal tip below the hemidiaphragm but excluded from [id number]. Cardiac monitoring wires and leads are present. [...] Transcribed Date and Time: 07/09/2018 3:10 Normal [facility] CR Chest Portable Patient Name: KATHYA HOOPER Diagnostic Radiology Exam Date/Time 07/08/2018 22:31:57 EDT Exam CR Chest Portable Ordering Physician MD NATE, NICOLE LEYDI Accession Number [id number] CPT4 Codes 35996 () Reason For Exam cough Report CHEST [...] WENDELL Transcribed Date and Time: 07/08/2018 11:23 [facility] CTA Head/Neck w/ + w/o contr birgit 07-09-2018 CTA Head/Neck w/ + w/o contrast Patient Name: KATHYA HOOPER CT Exam Date/Time 07/09/2018 04:42:10 EDT Exam CTA Head/Neck w/ + w/o contrast Ordering Physician MD RICKI, JORDAN Accession Number [id number] CPT4 Codes Q9967 (CT ISOVUE [id number]), 12852 (), 04662 () Reason For Exam CERVICAL SPINE FRACTURE Report CLINICAL INFORMATION: C-spine fracture after trauma. Vascular injury suspected. CTA HEAD: After 75 ml Isovue IV contrast, 0.3 mm axial cuts were obtained through the brain. Coronal and sagittal reconstructions are reviewed. In addition, 3D images of the [place] of [place] were constructed by az and reviewed simultaneously on the separate Vitrea [...] images of the carotids were constructed by az and reviewed simultaneously on the separate Vitrea [...] Transcribed Date and Time: 07/09/2018 9:50 Normal [employer] Hemogram w/ Autodiffon 07-09 Abs Baso Cnt 0.1 10*3/uL Normal 0.0-0.2 [facility] Comment on above: Performed By: #### H EMDF, PT, BMP3M, PHOS3, MG3, CK3 #### [employer] [address] [place] [id number] #### VD25H #### [facility] [address] [place] [address] Abs Neutrophile Cnt 13.3 10*3/uL High 1.8-7.0 [facility] Comment on above: Performed By: #### H EMDF, PT, BMP3M, PHOS3, MG3, CK3 #### [facility] [address] [place] #### VD25H #### [facility] [address] [place] [address] Basophils/100 WBC (Bld) 0.3 % Normal 0.0-2.0 [facility] Comment on above: Performed By: #### H EMDF, PT, BMP3M, PHOS3, MG3, CK3 #### [address] #### VD25H #### [facility] [address] [place] [address] Eosinophils #/vol (Bld) 0.0 10*3/uL Normal 0.0-0.5 [facility] Comment on above: Performed By: #### H EMDF, PT, BMP3M, PHOS3, MG3, CK3 #### [address] #### VD25H #### [facility] [address] [place] [address] Eosinophils/100 WBC (Bld) 0.0 % Low 1.0-6.0 [facility] Comment on above: Performed By: #### H EMDF, PT, BMP3M, PHOS3, MG3, CK3 #### [address] #### VD25H #### [facility] [address] [place] [address] Erythrocyte distribution width Ratio (RBC) 13.7 % Normal 11.5-14.5 [facility] Comment on above: Performed By: #### H EMDF, PT, BMP3M, PHOS3, MG3, CK3 #### [address] #### VD25H #### [facility] [address] [place] [address] Granulocytes/100 WBC (Bld) 86.5 % High 40.0-80.0 [facility] Comment on above: Performed By: #### H EMDF, PT, BMP3M, PHOS3, MG3, CK3 #### [address] #### VD25H #### [facility] [address] [place] [address] Hematocrit Volume Fraction (Bld) 45.1 % Normal 40.0-52.0 [facility] Comment on above: Performed By: #### H EMDF, PT, BMP3M, PHOS3, MG3, CK3 #### [address] #### VD25H #### [facility] [address] [place] [address] Hemoglobin mass conc (Bld) 15.6 g/dL Normal 13.0-18.0 [facility] Comment on above: Performed By: #### H EMDF, PT, BMP3M, PHOS3, MG3, CK3 #### [address] #### VD25H #### [facility] [address] [place] [address] Lymphocytes #/vol (Bld) 0.8 10*3/uL Low 1.0-4.3 [facility] Comment on above: Performed By: #### H EMDF, PT, BMP3M, PHOS3, MG3, CK3 #### [address] #### VD25H #### [facility] [address] [place] [address] Lymphocytes/100 WBC (Bld) 5.5 % Low 20.0-40.0 [facility] Comment on above: Performed By: #### H EMDF, PT, BMP3M, PHOS3, MG3, CK3 #### [address] [place], [place] #### VD25H #### [facility] [address] [place] [address] MCH Entitic mass (RBC) 29.9 pg Normal 26.0-34.0 [facility] Comment on above: Performed By: #### H EMDF, PT, BMP3M, PHOS3, MG3, CK3 #### [address] [address] [place] #### VD25H #### [facility] [address] [place] [address] MCHC mass conc (RBC) 34.5 % Normal 32.0-36.0 [facility] Comment on above: Performed By: #### H EMDF, PT, BMP3M, PHOS3, MG3, CK3 #### [address] #### VD25H #### [place] [address] [place] [address] MCV Entitic volume (RBC) 86.7 fL Normal 80.0-98.0 [facility] Comment on above: Performed By: #### H EMDF, PT, BMP3M, PHOS3, MG3, CK3 #### [address] [place] #### VD25H #### [facility] [address] [place] [address] Monocytes #/vol (Bld) 1.2 10*3/uL High 0.0-0.8 [facility] Comment on above: Performed By: #### H EMDF, PT, BMP3M, PHOS3, MG3, CK3 #### [address] #### VD25H #### [facility] [address] [place] [address] Monocytes/100 WBC (Bld) 7.7 % Normal 2.0-10.0 [facility] Comment on above: Performed By: #### H EMDF, PT, BMP3M, PHOS3, MG3, CK3 #### [address] [address] [place] #### VD25H #### [facility] [address] [place] [address] Platelet mean volume Entitic volume (Bld) 8.1 fL Normal 7.4-10.4 [facility] Comment on above: Performed By: #### H EMDF, PT, BMP3M, PHOS3, MG3, CK3 #### [address] [place] #### VD25H #### [place] [address] [place] [address] Platelets #/vol (Bld) 197 10*3/uL Normal 140-440 [facility] Comment on above: Performed By: #### H EMDF, PT, BMP3M, PHOS3, MG3, CK3 #### [address] #### VD25H #### [place] [address] [place] [address] RBC #/vol (Bld) 5.20 10*6/uL Normal 4.40-5.[address] [facility] Comment on above: Performed By: #### H EMDF, PT, BMP3M, PHOS3, MG3, CK3 #### [address] #### VD25H #### [place] [address] [place] [address] WBC #/vol (Bld) 15.4 10*3/uL High 3.6-10.[address] [facility] Comment on above: Performed By: #### H EMDF, PT, BMP3M, PHOS3, MG3, CK3 #### [address] #### VD25H #### [place] [address] [place] [address] MRI Spine Cervical w/o Contr birgit 07-09-2018 MRI Spine Cervical w/o Contrast Patient Name: KATHYA HOOPER MRI Exam Date/Time 07/09/2018 00:44:49 EDT Exam MRI Spine Cervical w/o Contrast Ordering Physician MD CHEYENNE, BRITTANY BERRY Accession Number [id number] CPT4 Codes 55627 () Reason For Exam CERVICAL SPINE FRACTURE [...] Transcribed Date and Time: 07/09/2018 7:45 Normal [facility] Magnesiumon 07-09-2018 Magnesium mass conc 2.2 mg/dL Normal 1.6-2.3 [facility] Comment on above: Performed By: #### H EMDF, PT, BMP3M, PHOS3, MG3, CK3 #### [facility] [address] [place] #### VD25H #### [facility] [address] [place] [address] Phosphoruson 07-09-2018 Phosphate mass conc 4.0 mg/dL Normal 2.5-4.5 [facility] Comment on above: Performed By: #### H EMDF, PT, BMP3M, PHOS3, MG3, CK3 #### [facility] [address] [place] #### VD25H #### [facility] [address] [place] [address] Prothrombin Timeon 9 INR Coag RelTime (PPP) 1.0 Normal 0.9-1.1 [facility] Comment on above: Result Comment: Yefri mmended [...] EMDF, PT, BMP3M, PHOS3, MG3, CK3 #### [facility] [address] [place] #### VD25H #### [facility] [address] [place] [address] Prothrombin time (PT) Coag time (PPP) 10.3 s Normal 9.0-12.0 [facility] Comment on above: Result Comment: . Performed By: #### H EMDF, PT, BMP3M, PHOS3, MG3, CK3 #### [facility] [employer] [address] [place] [address] #### VD25H #### [facility] [employer] [facility] [address] [facility] [place] [address] TS GELon 07-09-2018 TS GEL ABO Group: O Rh, Gel: POS Antibody Screen Gel: NEG Normal [facility] Comment on above: Performed By: #### T SGL #### [facility] [address] [place] [address] Vit D 25-OH, Totalon 019 Vit D 25-OH, Total 23 ng/mL Low 30-100 [facility] Comment on above: Result Comment: Ther apy is based on measurement of Total 25-OHD with the following classification levels: Less than 20 ng/mL: Indicative of Vit D deficiency 20-30 ng/mL: Suggests Vit D insufficiency Optimal: Greater than or equal to 30 ng/mL Test performed by [employer] Immunoassay, measuring Total Vitamin D, not individual fractions. Performed By: #### H EMDF, PT, BMP3M, PHOS3, MG3, CK3 #### [facility] [employer] [facility] [address] [place] [address] #### VD25H #### [facility] [employer] [facility] [address] [place] [address] Hematologyon 01-03-2003 Lymphocytes (Bld) [#/Vol] RECTUM, BIOPSY - BENIGN COLONIC MUCOSA WITH INTRAMUCOSAL LYMPHOID AGGREGATES. [facility] Otheron 01-03-2003 CONVERTED ELECTRONIC SIGNATURE BARBARA CASTILLO M.D., PATHOLOGIST (Electronic signature on file) Final Signed Out: 01/03/2003 15:09 [facility] CONVERTED ORDERING PROVIDER Ordering Provider: BENI VERA [facility] Culture, urine Bacteria identified Cx Nom (U) Culture exhibits no growth. [facility] Work Phone: Vital Signs Date Time Vital Sign Value Performing Clinician Facility 10-02-2023 13:56-0400 Diastolic blood pressure 62 mm[Hg] Fei Farooq MD Work Phone: [facility] 10-02-2023 13:56-0400 Heart rate 104 /min Fei Farooq MD Work Phone: [employer] 10-02-2023 13:56-0400 SaO2% (BldA) [Mass fraction] 94 % Fei Farooq MD Work Phone: [employer] 10-02-2023 13:56-0400 Systolic blood pressure 124 mm[Hg] Fei Farooq MD Work Phone: [employer] 10-02-2023 11:13-0400 Respiratory rate 16 /min Fei Farooq MD Work Phone: [employer] 10-02-2023 09:47-0400 Body mass index (BMI) [Ratio] 26.19 kg/m2 Fei Farooq MD Work Phone: [employer] 10-02-2023 09:47-0400 Body temperature 98.01 [degF] Fei Farooq MD Work Phone: [employer] 10-02-2023 09:47-0400 Body weight 92.53 kg Fei Farooq MD Work Phone: [employer] 05-20-2022 18:30-0500 Body mass index (BMI) [Ratio] 26.32 kg/m2 Abelardo Gombash DO Work Phone: [employer] 05-20-2022 18:30-0500 Body temperature 97.3 [degF] Abelardo Gombash DO Work Phone: [employer] 05-20-2022 18:30-0500 Body weight 92.99 kg Abelardo Gombash DO Work Phone: [employer] 05-20-2022 18:30-0500 Diastolic blood pressure 108 mm[Hg] Abelardo Gombash DO Work Phone: [employer] 05-20-2022 18:30-0500 Heart rate 100 /min Abelardo Gombash DO Work Phone: [employer] 05-20-2022 18:30-0500 Respiratory rate 14 /min Abelardo Gombash DO Work Phone: [facility] [employer] 05-20-2022 18:30-0500 SaO2% (BldA) [Mass fraction] 98 % Abelardo Gombash DO Work Phone: [facility] [employer] 05-20-2022 18:30-0500 Systolic blood pressure 125 mm[Hg] Abelardo Gombash DO Work Phone: [facility] [employer] 05-15-2021 09:40-0500 Body height 188 cm Timothy Micheal DO Work Phone: [facility] 05-15-2021 09:40-0500 Body mass index (BMI) [Ratio] 23.75 kg/m2 Timothy Micheal DO Work Phone: [facility] 05-15-2021 09:40-0500 Body weight 83.92 kg Timothy Micheal DO Work Phone: [facility] 05-15-2021 09:38-0500 Body temperature 97.59 [degF] Timothy Micheal DO Work Phone: [facility] 05-15-2021 09:38-0500 Diastolic blood pressure 76 mm[Hg] Timothy Micheal DO Work Phone: [facility] 05-15-2021 09:38-0500 Heart rate 102 /min Timothy Micheal DO Work Phone: [facility] 05-15-2021 09:38-0500 Respiratory rate 16 /min Timothy Micheal DO Work Phone: [employer] 05-15-2021 09:38-0500 SaO2% (BldA) [Mass fraction] 99 % Timothy Micheal DO Work Phone: [employer] 05-15-2021 09:38-0500 Systolic blood pressure 115 mm[Hg] Timothy Micheal DO Work Phone: [facility] 03-24-2021 10:20-0500 Respiratory rate 18 /min Brady Nesheim DO Work Phone: [facility] 03-24-2021 10:20-0500 SaO2% (BldA) [Mass fraction] 94 % Brady Nesheim DO [facility]: [facility] 03-24-2021 08:44-0500 Body temperature 97.7 [degF] Brady Nesheim DO Work Phone: [facility] 03-24-2021 08:44-0500 Diastolic blood pressure 55 mm[Hg] Brady Nesheim DO Work Phone: [facility] 03-24-2021 08:44-0500 Heart rate 85 /min Brady Nesheim DO Work Phone: [facility] 03-24-2021 08:44-0500 Systolic blood pressure 85 mm[Hg] Brady Nesheim DO Work Phone: [facility] 03-20-2021 13:41-0500 Body height 188 cm Brady Nesheim DO Work Phone: [facility] 03-20-2021 11:16-0500 Body mass index (BMI) [Ratio] 23.86 kg/m2 Brady Nesheim DO Work Phone: [facility] 03-20-2021 11:16-0500 Body weight 84.32 kg Brady Nesheim DO Work Phone: [facility] Comment on above: earlene Ingram RN (bed scal e measurement) on 03/20/2021 03-18-2021 15:02-0500 Body temperature 99.5 [degF] Boo Castro MD Work Phone: [facility] 03-18-2021 15:02-0500 Diastolic blood pressure 82 mm[Hg] Boo Castro MD Work Phone: [facility] 03-18-2021 15:02-0500 Heart rate 111 /min Boo Castro MD Work Phone: [facility] 03-18-2021 15:02-0500 Respiratory rate 18 /min Boo Castro MD Work Phone: [facility] 03-18-2021 15:02-0500 SaO2% (BldA) [Mass fraction] 93 % Boo Castro MD Work Phone: [facility] 03-18-2021 15:02-0500 Systolic blood pressure 111 mm[Hg] Boo Castro MD Work Phone: [facility] 10-30-2020 17:10-0400 Diastolic blood pressure 82 mm[Hg] Bethany Clemons MD Work Phone: [facility] Work Phone: 10-30-2020 17:10-0400 Heart rate 110 /min Bethany Clemons MD Work Phone: [facility] Work Phone: 10-30-2020 17:10-0400 Respiratory rate 16 /min Bethany Clemons MD Work Phone: [facility] Work Phone: 10-30-2020 17:10-0400 SaO2% (BldA) [Mass fraction] 99 % Bethany Clemons MD Work Phone: [facility] Work Phone: 10-30-2020 17:10-0400 Systolic blood pressure 125 mm[Hg] Bethany Clemons MD Work Phone: [facility] Work Phone: 10-30-2020 13:02-0400 Body mass index (BMI) [Ratio] 24.65 kg/m2 Bethany Clemons MD Work Phone: [facility] Work Phone: 10-30-2020 13:02-0400 Body temperature 96.91 [degF] Bethany Clemons MD Work Phone: [facility] Work Phone: 10-30-2020 13:02-0400 Body weight 87.09 kg Bethany Clemons MD Work Phone: [facility] Work Phone: 09-22-2020 05:01-0400 Diastolic blood pressure 76 mm[Hg] Elizabeth Moura MD Work Phone: [facility] Work Phone: 09-22-2020 05:01-0400 Systolic blood pressure 114 mm[Hg] Elizabeth Moura MD Work Phone: [facility] Work Phone: 09-22-2020 00:26-0400 Body temperature 97.81 [degF] Elizabeth Moura MD Work Phone: [facility] Work Phone: 09-22-2020 00:26-0400 Heart rate 86 /min Elizabeth Moura MD Work Phone: [facility] Work Phone: 09-22-2020 00:26-0400 Respiratory rate 16 /min Elizabeth Moura MD Work Phone: [facility] Work Phone: 09-22-2020 00:26-0400 SaO2% (BldA) [Mass [...] 17:58-0500 BMI (Body Mass Index) 25.16 kg/m2 Abealrdo QUIROGAA Work Phone: 06-26-2020 17:58-0500 Body Temperature 97.39 [degF] Abelardo QUIROGAA Work Phone: 06-26-2020 17:58-0500 Body weight 88.91 kg Abelardo BARNETT Work Phone: 06-26-2020 17:58-0500 Height 188 cm Abelardo BARNETT Work Phone: 05-16-2019 23:00-0500 Diastolic blood pressure 68 mm[Hg] Elizabeth Moura MD Work Phone: [facility] Work Phone: 05-16-2019 23:00-0500 Heart rate 95 /min Elizabeth Moura MD Work Phone: [facility] Work Phone: 05-16-2019 23:00-0500 Respiratory rate 18 /min Elizabeth Moura MD Work Phone: [facility] Work Phone: 05-16-2019 23:00-0500 SaO2% (BldA) [Mass fraction] 100 % Elizabeth Moura MD Work Phone: [facility] Work Phone: 05-16-2019 23:00-0500 Systolic blood pressure 115 mm[Hg] Elizabeth Moura MD Work Phone: [facility] Work Phone: 05-16-2019 19:57-0500 Body temperature 98.49 [degF] Elizabeth Moura MD Work Phone: [facility] Work Phone: NEGATED: Highlighted [id number] 14:34-0500 BMI (Body Mass Index) 22.16 kg/m2 Ana Stevenson PHOTOGRAPHIC HAND DEVELOPER [facility] Work Phone: NEGATED: Highlighted [id number] 14:34-0500 Body weight 78.02 kg Ana Stevenson PHOTOGRAPHIC HAND DEVELOPER [facility] Work Phone: NEGATED: Highlighted [id number] 14:34-0500 Body weight 78 kg Ana Stevenson PHOTOGRAPHIC HAND DEVELOPER [facility] Work Phone: NEGATED: Highlighted [id number] 14:34-0500 BP Diastolic 66 mm[Hg] Ana Diesch PHOTOGRAPHIC HAND DEVELOPER [facility] Work Phone: NEGATED: Highlighted [id number] 14:34-0500 BP Systolic 102 mm[Hg] Ana Diesch PHOTOGRAPHIC HAND DEVELOPER [facility] Work Phone: NEGATED: Highlighted [id number] 14:34-0500 Height 187.96 cm Ana Diesch PHOTOGRAPHIC HAND DEVELOPER [facility] Work Phone: NEGATED: Highlighted [id number] 14:34-0500 Height 188 cm Ana Diesch PHOTOGRAPHIC HAND DEVELOPER [facility] Work Phone: NEGATED: Highlighted [id number] 14:34-0500 Pulse (Heart Rate) 104 /min Ana Peoplesch PHOTOGRAPHIC HAND DEVELOPER [facility] Work Phone: Encounters Encounter Date Encounter Type Care Provider Facility Start: 12-16-2024 ambulatory Renard Burgos O[facility] Faci lity:[facility] Start: 12-09-2024 ambulatory Renard Burgos OLS Faci lity:[facility] Start: 12-02-2024 ambulatory Renard Burgos OLS Faci lity:[facility] Start: 11-25-2024 ambulatory Renard Burgos OLS Faci lity:[facility] Start: 11-25-2024 Registered Referred Renard [facility] - [facility] Start: 11-18-2024 ambulatory Renard Burgos OLS Faci lity:[facility] Start: 11-18-2024 Registered Referred Renard Burgos - [place] Start: 11-11-2024 ambulatory Renard GARLAND Faci lity:[facility] Start: 11-11-2024 Registered Referred Renard Burgos - [place] Start: 11-04-2024 ambulatory Renard Burgos OLS Faci lity:[facility] Start: 11-04-2024 Registered Referred Renard Burgos - [place] [facility] Start: 10-28-2024 ambulatory Renard GARLAND Faci lity:[facility] Start: 10-28-2024 Registered Referred Ren[facility] - [place] [facility] Start: 10-21-2024 End: 10-21-2024 ambulatory Renard [facility]ARLAND [facility] Start: 10-21-2024 End: 10-21-2024 Departed Referred Renard Burgos [facility] [facility] [facility] Start: 10-21-2024 Registered Referred Renard Burgos - [place] [employer] [facility] Start: 10-21-2024 End: 10-21-2024 ambulatory Renard GARLAND Facility:[facility] Start: 10-14-2024 ambulatory Renard GARLAND Faci lity:[facility] Start: 10-14-2024 Registered Referred Renard Burgos - [place] [employer] Start: 10-07-2024 ambulatory Renard GARLAND Faci lity:[facility] Start: 10-07-2024 Registered Referred Renard Burgos - [place] [employer] Start: 09-30-2024 ambulatory Renard GARLAND Faci lity:[facility] Start: 09-30-2024 Registered Referred Renard Burgos - [place] [employer] Start: 09-24-2024 End: 09-24-2024 ambulatory Renard [facility]ARLAND -[facility] [employer] Start: 09-24-2024 End: 09-24-2024 Departed Referred Renard Burgos [facility] [employer] Start: 09-24-2024 Registered Referred Renard Burgos - [place] [employer] Start: 09-24-2024 End: 09-24-2024 ambulatory Renard GARLAND Facility:[facility] Start: 09-16-2024 End: 09-16-2024 ambulatory Renard [facility] [employer] Start: 09-16-2024 End: 09-16-2024 Departed Referred Renard Burgos [facility] [employer] Start: 09-16-2024 Registered Referred Renard Burgos - [place] [employer] Start: 09-16-2024 End: 09-16-2024 ambulatory Renard GARLAND Facility:[facility] Start: 09-11-2024 End: 09-11-2024 ambulatory Renard Shellierustam GARLAND [facility] Work Phone: Start: 09-11-2024 End: 09-11-2024 Departed Referred Renard Burgos -[facility] [employer] [facility] Start: 09-11-2024 Registered Referred Renard [facility] [facility] Start: 09-11-2024 End: 09-11-2024 ambulatory Renard GARLAND Facility:[facility] Start: 09-09-2024 End: 09-09-2024 ambulatory Renard GARLAND [facility] Work Phone: Start: 09-09-2024 End: 09-09-2024 Departed Referred Renard Burgos [facility] [employer] Start: 09-09-2024 Registered Referred Renard [facility] [employer] Start: 09-09-2024 End: 09-09-2024 ambulatory Renard GARLAND Facility:[facility] Start: 09-02-2024 End: 09-02-2024 ambulatory Renard GARLAND [facility] Work Phone: Start: 09-02-2024 End: 09-02-2024 Departed Referred Renard [facility] [employer] Start: 09-02-2024 Registered Referred Renard [facility] [employer] Start: 09-02-2024 End: 09-02-2024 ambulatory Renard GARLAND Facility:[facility] Start: 08-26-2024 End: 08-26-2024 ambulatory Renard GARLAND [facility] Work Phone: Start: 08-26-2024 End: 08-26-2024 Departed Referred Renard [facility] [employer] Start: 08-26-2024 Registered Referred Renard Burgos - [place] [employer] Start: 08-26-2024 End: 08-26-2024 ambulatory Renard GARLAND Facility:[facility] Start: 08-23-2024 End: 08-23-2024 Departed Referred Renard [facility] [employer] Start: 08-23-2024 Registered Referred Renard Burgos - [place] [employer] Start: 08-23-2024 End: 08-23-2024 ambulatory Renard GARLAND Facility:[facility] Start: 08-19-2024 End: 08-19-2024 ambulatory Renard GARLAND [facility] Work Phone: Start: 08-19-2024 End: 08-19-2024 Departed Referred Renard Burgos -[facility] [employer] Start: 08-19-2024 Registered Referred Renard Amezquitaros - [place] [employer] Start: 08-19-2024 End: 08-19-2024 ambulatory Renard GARLAND Facility:[facility] Start: 08-12-2024 End: 08-12-2024 ambulatory Renard GARLAND [facility] Work Phone: Start: 08-12-2024 End: 08-12-2024 Departed Referred Renard Burgos [facility] [employer] Start: 08-12-2024 Registered Referred Renard Burgos - [place] [employer] Start: 08-12-2024 End: 08-12-2024 ambulatory Renard GARLAND Facility:[facility] Start: 08-05-2024 End: 08-05-2024 Departed Referred Renard Burgos [facility] [employer] Start: 08-05-2024 Registered Referred Renard Burgos - [place] [employer] Start: 08-05-2024 End: 08-05-2024 ambulatory Renard GARLAND Facility:[facility] Start: 07-29-2024 End: 07-29-2024 ambulatory Renard GARLAND [facility] Work Phone: Start: 07-29-2024 End: 07-29-2024 Departed Referred Renard Burgos [facility] [employer] Start: 07-29-2024 Registered Referred Renard Burgos - [place] [employer] Start: 07-29-2024 End: 07-29-2024 ambulatory Renard GARLAND Facility:[facility] Start: 07-22-2024 End: 07-22-2024 ambulatory Renard GARLAND [facility] Work Phone: Start: 07-22-2024 End: 07-22-2024 Departed Referred Renard [facility] [employer] Start: 07-22-2024 Registered Referred Renard Burgos - [place] [employer] Start: 07-22-2024 End: 07-22-2024 ambulatory Renard GARLAND Facility:[facility] Start: 07-16-2024 End: 07-16-2024 ambulatory Renard Shellierustam GARLAND [facility] Work Phone: Start: 07-16-2024 End: 07-16-2024 Departed Referred Renard [facility]os [facility] [employer] Start: 07-16-2024 Registered Referred Renard Burgos - [place] [employer] Start: 07-15-2024 End: 07-16-2024 ambulatory Renard GARLAND [facility] Work Phone: Start: 07-15-2024 End: 07-15-2024 Departed Referred Renard Burgos [facility] [employer] Start: 07-15-2024 Registered Referred Renard [facility] [employer] Start: 07-15-2024 End: 07-15-2024 ambulatory Renard GARLAND Facility:[facility] Start: 07-08-2024 End: 07-08-2024 ambulatory Renard GARLAND [facility] Work Phone: Start: 07-08-2024 End: 07-08-2024 Departed Referred Renard Burgos [facility] [employer] Start: 07-08-2024 Registered Referred Renard Burgos - [place] [employer] Start: 07-08-2024 End: 07-08-2024 ambulatory Renard GARLAND Facility:[facility] Start: 07-01-2024 End: 07-01-2024 ambulatory Renard GARLAND [facility] Work Phone: Start: 07-01-2024 End: 07-01-2024 Departed Referred Peter Katsaros [facility] [employer] Start: 07-01-2024 Registered Referred Renard Shellieros - [place] [employer] Start: 07-01-2024 End: 07-01-2024 ambulatory Renard GARLAND Facility:[facility] Start: 06-27-2024 End: 06-27-2024 ambulatory Renard Shellierustam GARLAND [facility] Work Phone: Start: 06-27-2024 End: 06-27-2024 Departed Referred Renard Amezquitaros [facility] [employer] Start: 06-27-2024 Registered Referred Renard Shellieros - [place] [employer] Start: 06-27-2024 End: 06-27-2024 ambulatory Renard GARLAND Facility:[facility] Start: 06-24-2024 End: 06-24-2024 Subsequent hospital visit by physician Rashaad Pink NP Work Phone: [facility] CT Imaging Comment on above: Chronic cough Start: 06-24-2024 End: 06-24-2024 ambulatory RASHAAD SMITH [facility] Start: 06-24-2024 End: 06-24-2024 Departed Referred Renard Burgos [facility] [employer] Start: 06-24-2024 Registered Referred Renard Loretta - [place] [employer] Start: 06-24-2024 End: 06-24-2024 ambulatory Renard GARLAND Facility:[facility] Start: 06-17-2024 End: 06-17-2024 ambulatory Renard GARLAND [facility] Work Phone: Start: 06-17-2024 End: 06-17-2024 Departed Referred Renard Amezquitaros [facility] [employer] Start: 06-17-2024 Registered Referred Renard Burgos - [place] [employer] Start: 06-17-2024 End: 06-17-2024 ambulatory Renard GARLAND Facility:[facility] Start: 06-12-2024 End: 09-11-2024 Transcribe Orders Rashaad Pink NP Work Phone: [facility] Scheduling Comment on above: Chronic cough (Prima ry Dx) Start: 06-10-2024 End: 06-10-2024 ambulatory Renard GARLAND [facility] Work Phone: Start: 06-10-2024 End: 06-10-2024 Departed Referred [facility] [employer] Start: 06-10-2024 Registered Referred [facility] [employer] Start: 06-10-2024 End: 06-10-2024 ambulatory Renard GARLAND Facility:[facility] Start: 06-07-2024 End: 06-07-2024 ambulatory Renard GARLAND [facility] Work Phone: Start: 06-07-2024 End: 06-07-2024 Departed Referred [facility] [employer] Start: 06-07-2024 Registered Referred [facility] [employer] Start: 06-07-2024 End: 06-07-2024 ambulatory Renard GARLAND Facility:[facility] Start: 06-03-2024 End: 06-03-2024 ambulatory Renard GARLAND [facility] Work Phone: Start: 06-03-2024 End: 06-03-2024 Departed Referred [facility] [employer] Start: 06-03-2024 End: 06-03-2024 ambulatory Renard GARLAND Facility:[facility] Start: 05-27-2024 End: 05-27-2024 Departed Referred [facility] [employer] Start: 05-27-2024 End: 05-27-2024 ambulatory Renard GARLAND Facility:[facility] Start: 05-20-2024 End: 05-20-2024 Departed Referred Renard [employer] Start: 05-20-2024 End: 05-20-2024 ambulatory Renard GARLAND Facility:[facility] Start: 05-13-2024 End: 05-13-2024 Departed Referred Renard BRUNO Start: 05-13-2024 End: 05-13-2024 ambulatory Renard GARLAND Facility:[facility] Start: 05-06-2024 End: 05-06-2024 Departed Referred Renard Burgos [facility] [employer] Start: 05-06-2024 End: 05-06-2024 ambulatory Renard GARLAND Facility:[facility] Start: 05-03-2024 End: 05-03-2024 Telephone encounter Renard Burgos Work Phone: [facility] Clinical Communication Comment on above: Other Start: 04-29-2024 End: 04-29-2024 Departed Referred Renard Burgos [facility] [employer] Start: 04-29-2024 End: 04-29-2024 ambulatory Renard GARLAND Facility:[facility] Start: 04-22-2024 End: 04-22-2024 Departed Referred Renard Burgos [facility] [employer] Start: 04-22-2024 End: 04-22-2024 ambulatory Renard GARLAND Facility:[facility] Start: 04-15-2024 End: 04-15-2024 Departed Referred Renard Burgos [facility] [employer] Start: 04-15-2024 End: 04-15-2024 ambulatory Renard GARLAND Facility:[facility] Start: 04-08-2024 ambulatory Renard GARLAND Faci lity:[facility] Start: 04-08-2024 Registered Referred Renard Burgos - [place] [employer] Start: 04-01-2024 ambulatory Renard GARLAND Faci lity:[facility] Start: 04-01-2024 Registered Referred Renard Amezquitaros - [place] [employer] Start: 03-25-2024 End: 03-25-2024 Departed Referred Renard Burgos [facility] [employer] Start: 03-25-2024 End: 03-25-2024 ambulatory Renard GARLAND Facility:[facility] Start: 03-18-2024 End: 03-18-2024 Departed Referred Renard A[facility]zquitaros [facility] [employer] Start: 03-18-2024 End: 03-18-2024 ambulatory Renard GARLAND Facility:[facility] Start: 03-11-2024 End: 03-11-2024 Departed Referred Renrad Burgos [facility] [employer] Start: 03-11-2024 End: 03-11-2024 ambulatory Renard Burgos OLS Facility:[facility] Start: 03-04-2024 End: 03-04-2024 ambulatory Renard Burgos OLS Facility:[facility] Start: 02-26-2024 End: 02-26-2024 ambulatory Renard Burgos OLS Facility:[facility] Start: 02-23-2024 End: 02-23-2024 ambulatory Renard Burgos OLS Facility:[facility] Start: 02-19-2024 End: 02-19-2024 ambulatory Renard Burgos OLS Facility:[facility] Start: 02-12-2024 End: 02-12-2024 ambulatory Renard Burgos OLS Facility:[facility] Start: 02-05-2024 End: 02-05-2024 ambulatory Renard Burgos OLS Facility:[facility] Start: 01-29-2024 End: 01-29-2024 ambulatory Renadr Burgos OLS Facility:[facility] Start: 01-22-2024 End: 01-22-2024 ambulatory Renard Burgos OLS Facility:[facility] Start: 01-15-2024 ambulatory Renard Burgos OLS Faci lity:[facility] Start: 01-08-2024 End: 01-08-2024 ambulatory Renard Burgos OLS Facility:[facility] Start: 01-02-2024 ambulatory Renard Burgos OLS Faci lity:[facility] Start: 12-25-2023 ambulatory Renard Burgos OLS Faci lity:[facility] Start: 11-22-2023 End: 11-22-2023 ambulatory RENARD BURGOS [facility] Start: 11-22-2023 End: 11-22-2023 Subsequent hospital visit by physician Renard Burgos Work Phone: [facility] X-ray Imaging Comment on above: Dysphagia, oropharyn geal phase; Feeding difficulties Start: 10-16-2023 End: 01-15-2024 Transcribe Orders Renard Burgos Work Phone: [facility] Central Scheduling Comment on above: Dysphagia, oropharyn geal phase (Primary Dx); Feeding difficulties Start: 10-02-2023 End: 10-02-2023 Emergency department patient visit Fei Farooq MD Work Phone: [facility] ED Comment on above: Dyspnea, unspecified type (Primary Dx) Start: 08-07-2023 Registered Referred [facility] [employer] Start: 07-31-2023 End: 07-31-2023 ambulatory [facility] Work Phone: Start: 07-31-2023 End: 07-31-[address] [facility] [employer] Start: 07-31-2023 Registered Referred [facility] [employer] Start: 07-24-2023 End: 07-24-2023 ambulatory [facility] Work Phone: Start: 07-24-2023 End: 07-24-[address] [facility] [employer] Start: 07-17-2023 End: 07-17-2023 ambulatory [facility] Work Phone: Start: 07-17-2023 End: 07-17-[address] [facility] [employer] Start: 07-17-2023 Registered Referred [facility] [employer] Start: 07-10-2023 End: 07-10-2023 ambulatory [facility] Work Phone: Start: 07-10-2023 End: 07-10-[address] [facility] [employer] Start: 07-10-2023 Registered Referred [facility] [employer] Start: 07-03-2023 End: 07-03-2023 ambulatory [facility] Work Phone: Start: 07-03-2023 End: 07-03-[address] [facility] [employer] Start: 07-03-2023 [facility] Start: 06-26-2023 [facility] Start: 06-19-2023 End: 06-19-2023 ambulatory [facility] Work Phone: Start: 06-19-2023 End: 06-19-[address] Start: 06-19-2023 [facility] Start: 06-12-2023 End: 06-12-2023 ambulatory [facility] Work Phone: Start: 06-12-2023 End: 06-12-[address] [facility] Start: 06-12-2023 [facility] Start: 06-05-2023 End: 06-05-2023 ambulatory [facility] Work Phone: Start: 06-05-2023 End: 06-05-[address] [facility] Start: 06-05-2023 [facility] Start: 05-29-2023 End: 05-29-[address] [facility] Start: 05-29-2023 [facility] Start: 05-22-2023 End: 05-22-2023 ambulatory [facility] Work Phone: Start: 05-22-2023 End: 05-22-[address] [facility] Start: 05-22-2023 Registered Referred [facility] [employer] [facility] Start: 05-15-2023 End: 05-15-[address] [facility] Start: 05-15-2023 [facility] Start: 05-08-2023 End: 05-08-2023 ambulatory [facility] Work Phone: Start: 05-08-2023 End: 05-08-[address] [facility] Start: 04-17-2023 End: 04-17-2023 ambulatory [facility] Work Phone: Start: 04-17-2023 End: 04-17-[address] [facility] Start: 04-17-2023 [facility] Start: 04-14-2023 End: 04-14-2023 ambulatory [facility] Work Phone: Start: 04-14-2023 End: 04-14-[address] [facility] Start: 04-14-2023 [facility] Start: 04-10-2023 End: 04-10-[address] [facility] Start: 04-10-2023 [facility] Start: 04-03-2023 End: 04-03-2023 ambulatory [facility] Work Phone: Start: 04-03-2023 End: 04-03-[address] [facility] Start: 04-03-2023 [facility] Start: 03-27-2023 End: 03-27-2023 ambulatory [facility] Work Phone: Start: 03-27-2023 End: 03-27-[address] [facility] Start: 03-27-2023 [facility] Start: 03-20-2023 End: 03-20-2023 ambulatory [facility] Work Phone: Start: 03-20-2023 End: 03-20-2023 Departed Referred [facility] [employer] Start: 03-20-2023 Registered Referred [facility] [employer] [facility] Start: 03-16-2023 End: 03-16-2023 ambulatory [facility] Work Phone: Start: 03-16-2023 End: 03-16-2023 Departed Referred [facility] [employer] [facility] Start: 03-16-2023 Registered Referred [facility] [employer] [facility] Start: 03-13-2023 End: 03-13-2023 ambulatory [facility] Work Phone: Start: 03-13-2023 End: 03-13-[address] [facility] Start: 03-06-2023 End: 03-06-2023 ambulatory [facility] Work Phone: Start: 03-06-2023 End: 03-06-2023 Departed Referred [facility] [employer] Start: 03-06-2023 Registered Referred [facility] [employer] Start: 02-27-2023 End: 02-27-2023 ambulatory [facility] Work Phone: Start: 02-27-2023 End: 02-27-[address] [facility] Start: 02-20-2023 End: 02-20-2023 ambulatory [facility] Work Phone: Start: 02-20-2023 End: 02-20-2023 Departed Referred [facility] [employer] Start: 02-20-2023 Registered Referred [facility] [employer] Start: 02-13-2023 End: 02-13-2023 ambulatory [facility] Work Phone: Start: 02-13-2023 End: 02-13-[address] [facility] Start: 02-13-2023 Reg[facility] [employer] Start: 02-06-2023 End: 02-06-2023 ambulatory [facility] Work Phone: Start: 02-06-2023 End: 02-06-[address] [facility] Start: 02-06-2023 Registered Referred [facility] [employer] Start: 01-30-2023 End: 01-30-2023 ambulatory [facility] Work Phone: Start: 01-30-2023 End: 01-30-[address] [facility] Start: 01-30-2023 [facility] Start: 01-23-2023 End: 01-23-[address] [facility] Start: 01-23-2023 Registered Referred [facility] Start: 01-16-2023 End: 01-16-2023 ambulatory [facility] Work Phone: Start: 01-16-2023 End: 01-16-[address] [facility] Start: 01-16-2023 [facility] Start: 01-09-2023 End: 01-09-[address] [facility] Start: 01-09-2023 [facility] Start: 01-03-2023 End: 01-03-2023 ambulatory [facility] Work Phone: Start: 01-03-2023 End: 01-03-[address] [facility] Start: 01-03-2023 [facility] Start: 12-26-2022 End: 12-26-2022 ambulatory [facility] Work Phone: Start: 12-26-2022 End: 12-26-[address] [facility] Start: 12-26-2022 [facility] Start: 12-19-2022 End: 12-19-2022 ambulatory [facility] Work Phone: Start: 12-19-2022 End: 12-19-[address] [facility] Start[facility] 12-19-2022 [facility] Start: 12-12-2022 End: 12-12-[address] [facility] Start: 12-12-2022 [facility] Start: 12-05-2022 End: 12-05-2022 ambulatory [facility] Work Phone: Start: 12-05-2022 End: 12-05-[address] Start: 12-05-2022 [facility] Start: 11-28-2022 End: 11-28-2022 ambulatory [facility] Work Phone: Start: 11-28-2022 End: 11-28-[address] Start: 11-28-2022 [facility] Start: 11-21-2022 End: 11-21-2022 ambulatory [facility] Work Phone: Start: 11-21-2022 End: 11-21-[address] Start: 11-21-2022 [facility] Start: 11-14-2022 End: 11-14-2022 ambulatory [facility] Work Phone: Start: 11-14-2022 End: 11-14-2022 Departed [facility] Start: 11-14-2022 Registered Referred [facility] Start: 11-07-2022 Registered Referred [facility] Start: 10-31-2022 End: 10-31-2022 ambulatory [facility] Work Phone: Start: 10-31-2022 End: 10-31-2022 Departed Referred [facility] Start: 10-31-2022 [facility] Start: 10-24-2022 End: 10-24-2022 ambulatory [facility] Work Phone: Start: 10-24-2022 End: 10-24-[address] [facility] Start: 10-24-2022 [facility] Start: 10-17-2022 End: 10-17-[address] [facility] Start: 10-17-2022 [facility] Start: 10-10-2022 End: 10-10-2022 ambulatory [facility] Work Phone: Start: 10-10-2022 End: 10-10-2022 Departed [facility] Start: 10-10-2022 [facility] Start: 10-03-2022 End: 10-03-2022 ambulatory [facility] Work Phone: Start: 10-03-2022 End: 10-03-2022 Dep[facility]ed [facility] Start: 09-19-2022 End: 09-19-[address] Start: 09-19-2022 [facility] Start: 09-12-2022 End: 09-12-2022 ambulatory [facility] Work Phone: Start: 09-12-2022 End: 09-12-2022 Departed [facility] Start: 09-05-2022 End: 09-05-2022 Departed [facility] Start: 09-05-2022 Registered [facility] Start: 08-29-2022 End: 08-29-[address] Start: 08-29-2022 Registered [facility] Start: 08-22-2022 End: 08-22-2022 ambulatory [facility] Work Phone: Start: 08-22-2022 End: 08-22-[address] [facility] Start: 08-22-2022 Registered [facility] Start: 08-15-2022 End: 08-15-2022 ambulatory [facility] Work Phone: Start: 08-15-2022 End: 08-15-2022 Departed [facility] Start: 08-15-2022 Registered [facility] Start: 08-08-2022 End: 08-08-[address] Start: 08-08-2022 Registered [facility] Start: 08-01-2022 End: 08-01-2022 ambulatory [facility] Work Phone: Start: 08-01-2022 End: 08-01-[address] Start: 08-01-2022 [facility] Start: 07-25-2022 End: 07-25-2022 ambulatory [facility] Work Phone: Start: 07-25-2022 End: 07-25-2022 Departed Referred [facility] Start: 07-25-2022 Registered Referred [facility] Start: 07-19-2022 End: 07-19-2022 Departed Referred [facility] Start: 07-19-2022 Registered [facility] Start: 07-18-2022 End: 07-18-2022 ambulatory [facility] Work Phone: Start: 07-18-2022 End: 07-18-2022 Departed [facility] Start: 07-18-2022 Registered [facility] Start: 07-11-2022 End: 07-11-2022 ambulatory [facility] Work Phone: Start: 07-11-2022 End: 07-11-2022 Departed [facility] Start: 07-11-2022 Registered Referred [facility] Start: 07-04-2022 End: 07-04-2022 Departed [facility] Start: 07-04-2022 Registered [facility] Start: 06-27-2022 End: 06-27-2022 ambulatory [facility] Work Phone: Start: 06-27-2022 End: 06-27-2022 Departed [facility] Start: 06-27-2022 Registered Referred [facility] Start: 06-20-2022 End: 06-20-2022 ambulatory [facility] Work Phone: Start: 06-20-2022 End: 06-20-2022 Departed [facility] Start: 06-20-2022 Registered Referred [facility] Start: 06-13-2022 End: 06-13-2022 ambulatory [facility] Work Phone: Start: 06-13-2022 End: 06-13-[address] [facility] Start: 06-13-2022 Registered Referred [facility] Start: 06-06-2022 End: 06-06-[address] [facility] Start: 06-06-2022 Registered Referred [facility] Start: 05-30-2022 End: 05-30-2022 ambulatory [facility] Work Phone: Start: 05-30-2022 End: 05-30-[address] [facility] Start: 05-23-2022 End: 05-23-2022 ambulatory [facility] Work Phone: Start: 05-23-2022 End: 05-23-[address] [facility] Start: 05-23-2022 Registered Referred [facility] Start: 05-20-2022 End: 05-20-2022 Emergency department patient visit Abelardo Wilkersongeorgie GOMEZ Work Phone: [facility] Comment on above: Dislodged gastrostom y tube (Primary Dx) Start: 05-16-2022 End: 05-16-[address] [facility] Start: 05-16-2022 Registered Referred [facility] Start: 05-09-2022 End: 05-09-2022 ambulatory [facility] Work Phone: Start: 05-09-2022 End: 05-09-[address] [facility] Start: 05-09-2022 Registered Referred [facility] Start: 05-03-2022 End: 05-03-2022 ambulatory [facility] Work Phone: Start: 05-03-2022 End: 05-03-[address] Start: 05-03-2022 [facility] Start: 04-26-2022 End: 04-26-2022 [facility] Start: 04-26-2022 [facility] Start: 04-18-2022 End: 04-18-2022 ambulatory [facility] Work Phone: Start: 04-18-2022 End: 04-18-[address] Start: 04-18-2022 [facility] Start: 04-14-2022 End: 04-14-2022 ambulatory [facility] Work Phone: Start: 04-14-2022 End: 04-14-[address] [facility] Start: 04-14-2022 [facility] Start: 04-11-2022 End: 04-11-2022 ambulatory [facility] Work Phone: Start: 04-11-2022 End: 04-11-2022 [facility] Start: 04-11-2022 [facility] Start: 04-04-2022 End: 04-04-2022 ambulatory [facility] Work Phone: Start: 04-04-2022 End: 04-04-[address] Start: 04-04-2022 [facility] Start: 03-28-2022 End: 03-28-2022 ambulatory [facility] Work Phone: Start: 03-28-2022 End: 03-28-2022 Departed [facility] Start: 03-28-2022 Registered Referred [facility] Start: 03-21-2022 End: 03-21-2022 ambulatory [facility] Work Phone: Start: 03-21-2022 End: 03-21-2022 Departed [facility] Start: 03-21-2022 Registered [facility] Start: 03-14-2022 End: 03-14-2022 Departed [facility] Start: 03-14-2022 Registered [facility] Start: 2022 End: 2022 ambulatory [facility] Work Phone: Start: 2022 End: 2022 Departed [facility] Start: 2022 Registered Referred [facility] Start: 02-28-2022 End: 02-28-2022 Departed [facility] Start: 02-28-2022 Registered Referred [facility] Start: 02-21-2022 End: 02-21-2022 ambulatory [facility] Work Phone: Start: 02-21-2022 End: 02-21-2022 Departed Referred [facility] Start: 02-21-2022 Registered Referred [facility] Start: 02-14-2022 End: 02-14-2022 ambulatory [facility] Work Phone: Start: 02-14-2022 End: 02-14-[address] Start: 02-14-2022 Registered [facility] Start: 02-07-2022 End: 02-07-2022 ambulatory [facility] Work Phone: Start: 02-07-2022 End: 02-07-2022 Departed [facility] Start: 02-07-2022 Registered [facility] Start: 01-31-2022 End: 01-31-2022 ambulatory [facility] Work Phone: Start: 01-31-2022 End: 01-31-2022 Departed [facility] Start: 01-31-2022 Registered [facility] Start: 01-24-2022 End: 01-24-2022 ambulatory [facility] Work Phone: Start: 01-24-2022 End: 01-24-[address] Start: 01-24-2022 Registered [facility] Start: 01-17-2022 End: 01-17-2022 Departed [facility] Start: 01-17-2022 Registered [facility] Start: 01-10-2022 End: 01-10-2022 ambulatory [facility] Work Phone: Start: 01-10-2022 End: 01-10-2022 Departed Referred [facility] Start: 01-10-2022 Registered Referred [facility] Start: 01-04-2022 End: 01-04-2022 ambulatory [facility] Work Phone: Start: 01-04-2022 End: 01-04-2022 Departed [facility] Start: 01-04-2022 Registered Referred [facility] Start: 12-27-2021 End: 12-27-2021 ambulatory [facility] Work Phone: Start: 12-27-2021 End: 12-27-2021 Departed Referred [facility] Start: 12-27-2021 Registered Referred [facility] Start: 12-20-2021 End: 12-20-2021 ambulatory [facility] Work Phone: Start: 12-20-2021 End: 12-20-[address] [facility] Start: 12-20-2021 Registered [facility] Start: 12-13-2021 End: 12-13-[address] [facility] Start: 12-13-2021 Registered [facility] Start: 12-06-2021 End: 12-06-2021 ambulatory [facility] Work Phone: Start: 12-06-2021 End: 12-06-2021 Departed [facility] Start: 12-06-2021 Registered [facility]erred [facility] Start: 11-29-2021 End: 11-29-2021 ambulatory [facility] Work Phone: Start: 11-29-2021 End: 11-29-2021 Departed Referred [facility] Start: 11-29-2021 [facility]istered [facility] Start: 11-22-2021 End: 11-22-2021 Dep[facility]ed [facility] Start: 11-22-2021 [facility] Start: 11-15-2021 End: 11-15-[address] [facility] Start: 11-15-2021 Registered Referred [facility] Start: 11-08-2021 End: 11-08-2021 Departed Referred [facility] Start: 10-25-2021 Registered Referred [facility] Start: 10-18-2021 Registered Referred [facility] Start: 10-11-2021 Registered Referred [facility] Start: 10-04-2021 Registered Referred [facility] Start: 09-28-2021 End: 09-28-[address] Start: 09-28-2021 Registered Referred [facility] Start: 09-20-2021 End: 09-20-[address] [facility] Start: 09-20-2021 Registered Referred [facility] Start: 09-13-2021 End: 09-13-[address] [facility] Start: 09-13-2021 Registered Referred [facility] Start: 09-06-2021 End: 09-06-2021 Departed Referred [facility] Start: 09-06-2021 Registered Referred [facility] Start: 08-30-2021 End: 08-30-2021 Departed Referred [facility] Start: 08-30-2021 Registered Referred [facility] Start: 08-23-2021 End: 08-23-2021 Dep[facility]ed [facility] Start: 08-23-2021 Registered Referred [facility] Start: 08-18-2021 End: 08-18-[address] [facility] Start: 08-18-2021 Registered Referred [facility] Start: 08-16-2021 End: 08-16-2021 Departed [facility] Start: 08-16-2021 Registered Referred [facility] Start: 08-09-2021 End: 08-09-[address] [facility] Start: 08-02-2021 End: 08-02-2021 Departed [facility] Start: 08-02-2021 Registered [facility] Start: 07-26-2021 End: 07-26-[address] [facility] Start[facility] 07-26-2021 [facility] Start: 07-19-2021 End: 07-19-[address] [facility] Start: 07-19-2021 Registered [facility] Start: 07-12-2021 End: 07-12-[address] [facility] Start: 07-05-2021 End: 07-05-[address] [facility] Start: 07-05-2021 Registered [facility] Start: 06-28-2021 End: 06-28-[address] [facility] Start: 06-28-2021 Registered Referred [facility] Start: 06-21-2021 End: 06-21-[address] [facility] Start: 06-21-2021 [facility] Start[facility] 06-14-2021 [facility] Start: 06-07-2021 End: 06-07-[address] [facility] Start: 06-07-2021 Registered Referred [facility] Start: 05-31-2021 End: 05-31-2021 Departed Referred [facility] Start: 05-31-2021 Registered Referred [facility] Start: 05-24-2021 End: 05-24-2021 Departed Referred [facility] Start: 05-17-2021 Registered Referred [facility] Start: 05-15-2021 End: 05-15-2021 Emergency department patient visit Timothy Burton DO Work Phone: [facility] Comment on above: PEG tube malfunction (HCC) (Primary Dx) Start: 05-14-2021 Registered Referred [facility] Start: 05-10-2021 Registered Referred [facility] Start: 05-03-2021 Registered Referred [facility] Start: 04-26-2021 Registered Referred [facility] Start: 04-19-2021 Registered Referred [facility] Start: 04-12-2021 Registered Referred [facility] Start: 04-07-2021 Registered Referred [facility] Start: 03-19-2021 End: 03-24-2021 Evaluation and management of inpatient Brady Desai DO Work Phone: [facility] Comment on above: Respiratory syncytia l virus (RSV) (Primary Dx); Hypoxia Start: 03-18-2021 End: 03-18-2021 Emergency department patient visit [facility]oo Castro [facility] Comment on above: Respiratory syncytia l virus (RSV) (Primary Dx); Hypoxia Start: 10-30-2020 End: 10-30-2020 Emergency department patient visit Bethany Clemons MD Work Phone: [facility] Comment on above: Feeding tube dysfunc tion, initial encounter (Primary Dx) Start: 09-22-2020 End: 09-22-2020 Emergency department patient visit Elizabeth Moura MD Work Phone: [facility] Comment on above: PEG tube malfunction (HCC) (Primary Dx) Start: 06-26-2020 End: 06-26-2020 Emergency department patient visit Abelardo Rios Work Phone: [facility] Comment on above: PEG tube malfunction (HCC) (Primary Dx) Start: 05-22-2019 End: 05-22-2019 Patient encounter procedure Jarvis Kendall MD Work Phone: [facility] Work Phone: Start: 05-22-2019 End: 05-22-2019 Pt evaluation Jarvis Kendall MD Work Phone: [facility] Work Phone: Start: 05-16-2019 End: 05-16-2019 Emergency department patient visit Elizabeth Moura MD Work Phone: [facility] Comment on above: Contusion of right h ip, initial encounter (Primary Dx) Start: 08-15-2018 Evaluation and management of inpatient UNKNOWN PROVIDER [facility] Start: 07-08-2018 Evaluation and management of inpatient JORDAN RICKI [facility] Start: 01-02-2003 End: 01-02-2003 Patient encounter procedure Beni Cappsr Work Phone: [facility] Start: 01-02-2003 Results Only Beni Cappsr Work Phone: [facility] Procedures Date Procedure Procedure Detail Performing Clinician [...] et reagent auto microscopy Renard GARLAND Start: 11-22-2023 Radiologic exam swal low function contrast study Renard Burgos Work Phone: Start: 10-02-2023 Comprehensive metabo lic panel Helen SCHUMACHER-C Work Phone: Start: 10-02-2023 Radiologic exam ches t single view Helen SCHUMACHER-C Work Phone: Start: 10-02-2023 Ecg routine ecg [...] d ev cleared fda spec home use aRfa Michel MD Work Phone: Start: 03-21-2021 Gluc [...] EMDF, PT, BMP3M, PHOS3, MG3, CK3 #### [facility] [address], [place] #### [id number] #### [facility] [address] [place] [address] Start: 07-27-2018 Microscopic examinat ion of blood, culture Comment on above: Order Comment: Speci men Source Comment:Blood Performed By: #### H EMDF, PT, BMP3M, PHOS3, MG3, CK3 #### [facility] [address], [place] #### [id number] #### [facility] [address] [place] [address] Start: 07-19-2018 Microscopic examinat ion of blood, culture Comment on above: Order Comment: Speci men Source Comment:Blood Performed By: #### H EMDF, PT, BMP3M, PHOS3, MG3, CK3 #### [facility] [address] [place] [address] #### [id number] #### [facility] [address] [place] [address] Start: 01-02-2003 CONVERTED SURGICAL PATHOLOGY Beni Vera Work Phone: Urine culture NEGATED: Highlighted rowStart: 05-22-2019 End: 05-22-2019 Documentation of current medications Ana Stevenson LPN NEGATED: Highlighted rowStart: 05-22-2019 End: 05-22-2019 Smoking cessation education Ana Stevenson PHOTOGRAPHIC HAND DEVELOPER Plan of Treatment Date Care Activity Detail Author Start: 2032 RSV Immunization for Adults (1 - 1-dose 75+ series) RSV Immunization for Adults (1 - 1-dose 75+ series) [facility] Start: 01-10-2027 DTaP/Tdap/Td vaccine (2 - Td or Tdap) DTaP/Tdap/Td vaccine (2 - Td or Tdap) [facility] Start: 01-10-2027 DTaP/Tdap/Td vaccine (2 - Td) DTaP/Tdap/Td vaccine (2 - Td) [facility] Work Phone: Start: 01-10-2027 DTaP/Tdap/Td Vaccine s (2 - Td or Tdap) DTaP/Tdap/Td Vaccines (2 - Td or Tdap) [facility] Start: 12-30-2024 Influenza vaccination Influenz a Vaccine (Season Ended) [facility] Start: 03-22-2024 Diabetes mellitus screening Diabetes Screening [facility] Start: 12-31-2023 COVID-19 Vaccine ( season) COVID-19 Vaccine ( season) [facility] Start: 12-31-2023 COVID-19 Vaccine ( season) COVID-19 Vaccine ( season) [facility] Start: 12-31-2023 COVID-19 Vaccine ( season) COVID-19 Vaccine ( season) [facility] Start: 12-31-2023 Influenza vaccination [facility] Start: 01-30-2023 Bacteria identified in Urine by Culture Urine Culture [facility] Start: 01-30-2023 [facility] Start: 12-30-2022 COVID-19 Vaccine ( season) COVID-19 Vaccine ( season) [facility] Start: 2022 Pneumococcal 0-64 ye ars Vaccine (2 of 2 - PPSV23) Pneumococcal 0-64 years Vaccine (2 of 2 - PPSV23) [facility] Start: 2022 Pneumococcal 0-64 ye ars Vaccine (2 of 2) Pneumococcal 0-64 years Vaccine (2 of 2) [facility] Work Phone: Start: 2022 Pneumococcal Vaccine : 65+ Years (2 of 2 - PCV) Pneumococcal Vaccine: 65+ Years (2 of 2 - PCV) [facility] Start: 12-30-2021 Influenza vaccination Influenza Vacc ine (#1) [facility] Start: 12-30-2020 Influenza vaccination [facility] Start: 12-31-2019 Influenza vaccination Flu vaccine (# 1) [facility] Work Phone: Start: 08-18-2019 A1C test (Diabetic o r Prediabetic) A1C test (Diabetic or Prediabetic) [facility] Work Phone: Start: 08-18-2019 HbA1c (Bld) [Mass fraction] A1C test (Diabetic or Prediabetic) [facility] Work Phone: Start: 08-18-2019 Hemoglobin A1c measurement A1C test (Diabetic or Prediabetic) [facility] Start: 05-22-2019 End: 05-22-[address] [facility] Work Phone: Start: 02-07-2019 Lipid panel Lipid screen [facility] Start: 02-07-2019 Lipid screen Lipid screen [facility] Work Phone: Start: 12-30-2018 Influenza vaccination Flu vaccine (# 1) [facility] Work Phone: Start: 01-10-2018 Pneumococcal Vaccine : 50+ Years (2 of 2 - PCV) Pneumococcal Vaccine: 50+ Years (2 of 2 - PCV) [facility] Start: 01-10-2018 Pneumococcal Vaccine : 65+ Years (2 - PCV) Pneumococcal Vaccine: 65+ Years (2 - PCV) [facility] Start: 2017 RSV Immunization age d 60 or older (1 - 1-dose 60+ series) RSV Immunization aged 60 or older (1 - 1-dose 60+ series) [facility] Start: 2007 Colon cancer screen colonoscopy Colon cancer screen colonoscopy [facility] Work Phone: Start: 2007 Screening for malign ant neoplasm of colon Colon cancer screen colonoscopy [facility] Work Phone: Start: 2007 Shingles Vaccine (1 of 2) Shingles Vaccine (1 of 2) [facility] Start: 2007 Zoster Vaccines (1 o f 2) Zoster Vaccines (1 of 2) [facility] Start: 2002 Screening for malign ant neoplasm of colon Colon cancer screen colonoscopy [facility] Start: 1976 Hepatitis A Vaccines (1 of 2 - Risk 2-dose series) Hepatitis A Vaccines (1 of 2 - Risk 2-dose series) [facility] Start: 1975 Hepatitis C screening Hepatitis C Sc reening [facility] Start: 1969 COVID-19 Vaccine (1) COVID-19 Vaccin e (1) [facility] Start: 1969 [facility] 1969 Depression Screen Depression Screen [facility] Start: 1962 COVID-19 Vaccine (1) COVID-19 Vaccin e (1) [facility] Start: 1957 COVID-19 Vaccine (#1) COVID-19 Vacci ne (#1) [facility] Start: 1957 Annual wellness visit Medicare Initial Physical (IPPE) [facility] Start: 1957 Hepatitis B Vaccines (1 of 3 - 3-dose series) Hepatitis B Vaccines (1 of 3 - 3-dose series) [facility] Start: 1957 Lipid panel Lipid Panel [facility] Start: 1957 Screening for malign ant neoplasm of colon [facility] Basic metabolic 2000 panel - Serum or Plasma Basic Metabolic Panel Lab Routine Daily until discontinued starting 03/23/2021, 2 completed [email or web address] Work Phone: Comment on above: Daily until disconti nued starting 03/23/2021, 2 completed CBC W Auto Different ial panel - Blood CBC Auto Differential Lab Routine Daily until discontinued starting 03/23/2021, 2 completed [email or web address] Work Phone: Comment on above: Daily until disconti nued starting 03/23/2021, 2 completed End: 06-24-2024 CT Chest WO contrast [employer] Work Phone: Comment on above: Once for 1 Occurrenc es starting 06/24/2024 until 06/24/2024 Culture, Blood 2 Culture, Blood 2 Microbiology STAT 03/19/2021 6:26 PM EST [email or web address] Work Phone: End: 03-20-2021 Culture, Respiratory Culture, Respiratory Microbiology Routine One Time for 1 Occurrences starting 03/20/2021 until 03/20/2021 [email or web address] Work Phone: Comment on above: One Time for 1 Occur rences starting 03/20/2021 until 03/20/2021 EKG 12 Lead EKG 12 Lead ECG STAT 03/18/2021 3:20 PM EST [email or web address] Work Phone: Feeding Tube Feeding Tube Pro cedures Routine 10/30/2020 2:22 PM EDT [email or web address] Work Phone: End: 09-22-2020 FL WATER SOLUBLE ENEMA W OR WO KUB FL WATER SOLUBLE ENEMA W OR WO KUB Imaging STAT Once for 1 Occurrences starting 09/22/2020 until 09/22/2020 [email or web address] Work Phone: Comment on above: Once for 1 Occurrenc es starting 09/22/2020 until 09/22/2020 End: 03-23-2021 Glucose [Mass/volume] in Serum or Plasma POCT GLUCOSE Point of Care Testing Routine Now Then Every 6hr for 7 Occurrences starting 03/21/2021 until 03/23/2021 [email or web address] Work Phone: Comment on above: Now Then Every 6hr f or 7 Occurrences starting 03/21/2021 until 03/23/2021 High Frequency Chest Wall Oscillation (HFCWO) High Frequency Chest Wall Oscillation (HFCWO) Respiratory Care Routine (respiratory use only) until discontinued starting 03/22/2021 [employer] Phone: Comment on above: (respirato ry use only) until discontinued starting 03/22/2021 End: 03-20-2021 Legionella Antigen, Urine Legionella Antigen, Urine Microbiology Routine One Time for 1 Occurrences starting 03/20/2021 until 03/20/2021 [employer] Phone: Comment on above: One Time for 1 Occur rences starting 03/20/2021 until 03/20/2021 Microscopic examinat ion of blood, culture Culture, Blood Microbiology STAT 03/19/2021 6:26 PM EST [email or web address] Work Phone: End: 03-20-2021 Microscopic observation [Identifier] in Unspecified specimen by Gram stain Gram Stain Microbiology Routine Once for 1 Occurrences starting 03/20/2021 until 03/20/2021 [employer] Phone: Comment on above: Once for 1 Occurrenc es starting 03/20/2021 until 03/20/2021 Oxygen therapy [[facility] Data Set] Initiate Oxygen Therapy Protocol Respiratory Care Routine Daily until discontinued starting 03/20/2021 [employer] Phone: Comment on above: Daily until disconti nued starting 03/20/2021 Patient Education \cps-sql1\CPS_ PtEducati on\CDC_FALL_PREVENTION. pdf, \cps-sql1\CPS_PtEducati on\quitting_smoking_[id number] [facility] Work Phone: RT Communication Order RT Commun ication Order Respiratory Care STAT Daily until discontinued starting 03/18/2021 [email or web address] Work Phone: Comment on above: Daily until disconti nued starting 03/18/2021 RT Communication Order RT Commun ication Order Respiratory Care Routine Daily until discontinued starting 03/20/2021 [facility] Work Phone: Comment on above: Daily until disconti nued starting 03/20/2021 End: 03-20-2021 STREP PNEUMONIAE ANTIGEN STREP PNEUMONIAE ANTIGEN Microbiology Routine One Time for 1 Occurrences starting 03/20/2021 until 03/20/2021 [facility] Work Phone: Comment on above: One Time for 1 Occur rences starting 03/20/2021 until 03/20/2021 End: 03-18-2021 Urinalysis Urinalysis Lab STAT One Time for 1 Occurrences starting 03/18/2021 until 03/18/2021 [facility] Work Phone: Comment on above: One Time for 1 Occur rences starting 03/18/2021 until 03/18/2021 End: 03-18-2021 Urine Drug Screen Urine Drug Screen Lab STAT One Time for 1 Occurrences starting 03/18/2021 until 03/18/2021 [facility] Work Phone: Comment on above: One Time for 1 Occur rences starting 03/18/2021 until 03/18/2021 End: 09-22-2020 XR ABDOMEN (KUB) (SINGLE AP VIEW) XR ABDOMEN (KUB) (SINGLE AP VIEW) Imaging Routine Once for 1 Occurrences starting 09/22/2020 until 09/22/2020 [facility] Work Phone: Comment on above: Once for 1 Occurrenc es starting 09/22/2020 until 09/22/2020 Immunizations Immunization Date Immunization Notes Care Provider [facility] 02-02-2021 influenza virus vacc ine, unspecified formulation Rashaad Smith VEGETABLE PACKER - HOSPITALIST PHYSICIAN Work Phone: [facility] 01-10-2017 pneumococcal polysaccharide vaccine, 23 valent Elizabeth Moura MD Work Phone: [facility] 01-10-2017 tetanus toxoid, redu delia diphtheria toxoid, and acellular pertussis vaccine, adsorbed Elizabeth Moura MD Work Phone: [facility] Work Phone: Payers Date Payer Category Payer Self-pay [id number] 2019 Medicaid [id number] 2019 Medicaid [id number] 2018 Private Health Insurance [id number]. [id number] 2018 [place] Health [place] [facility] [place] 2018-Present [phone] [address] [place] [address] xxxxxxxxx [id number]. [id number] 1955 Unknown [id number] 2.840.1.246725.3.579.2. 668 1955 Unknown [id number] 2.16.840.1.238499.3.579.2. 668 Private Health Insurance Unknown [id number] 2.16.840.1.837064.3.579.2. 462 Unknown [id number] 2.16.840.1.499030.3.579.2. 462 Unknown [id number] 2.16.840.1.566359.3.579.2. 462 Unknown [id number] 2.16.840.1.630000.3.579.2. 462 Unknown [id number] 2.16.840.1.484341.3.579.2. 462 Unknown [id number] 2.16.840.1.017299.3.579.2. 462 Unknown [id number] 2.16.840.1.444801.3.579.2. 462 Unknown [id number] 2.16.840.1.870890.3.579.2. 462 Unknown [id number] 2.16.840.1.513202.3.579.2. 462 Unknown [id number] 2.840.1.408959.3.579.2. 462 Unknown [id number] 2.840.1.422164.3.579.2. 462 Unknown [id number] 2.840.1.527361.3.579.2. 462 Unknown [id number] 2.840.1.138338.3.579.2. 462 Unknown [id number] 2.840.1.962301.3.579.2. 462 Unknown [id number] 2.840.1.389588.3.579.2. 462 Unknown [id number] 2.840.1.213920.3.579.2. 462 Unknown [id number] 2.840.1.235149.3.579.2. 462 Unknown [id number] 2.840.1.094986.3.579.2. 462 Unknown [id number] .840.1.687011.3.579.2. 462 Unknown [id number] .840.1.166311.3.579.2. 462 Unknown [id number] .840.1.854102.3.579.2. 462 Unknown [id number] .840.1.975962.3.579.2. 462 Unknown [id number] .840.1.525570.3.579.2. 462 Unknown [id number] .840.1.172736.3.579.2. 462 Unknown [id number] 2.840.1.157828.3.579.2. 462 Unknown [id number] 2.840.1.228045.3.579.2. 462 Unknown [id number] 2.840.1.146620.3.579.2. 462 Unknown [id number] 2.16.840.1.755591.3.579.2. 462 Unknown [id number] 2.16.840.1.779234.3.579.2. 462 Unknown [id number] 2.16.840.1.005098.3.579.2. 462 Unknown [id number] 2.16.840.1.782266.3.579.2. 462 Unknown [id number] 2.16.840.1.343856.3.579.2. 462 Unknown [id number] 2.16.840.1.296687.3.579.2. 462 Unknown [id number] 2.840.1.052742.3.579.2. 462 Unknown [id number] 2.840.1.831495.3.579.2. 462 Unknown [id number] 2.840.1.842430.3.579.2. 462 Unknown [id number] 2.840.1.308572.3.579.2. 462 Unknown [id number] 2.840.1.440930.3.579.2. 462 Unknown [id number] 2.840.1.493625.3.579.2. 462 Unknown [id number] 2.840.1.011823.3.579.2. 462 Unknown [id number] 2..840.1.450975.3.579.2. 462 Unknown [id number] 2.16.840.1.675599.3.579.2. 462 Unknown [id number] 2.16.840.1.644873.3.579.2. 462 Unknown [id number] 2.16.840.1.169579.3.579.2. 462 Unknown [id number] 2.16.840.1.910762.3.579.2. 462 Unknown [id number] 2..840.1.774009.3.579.2. 462 Unknown [id number] 2.16.840.1.801172.3.579.2. 462 Unknown [id number] 2.16.840.1.637620.3.579.2. 462 Unknown [id number] 2.16.840.1.935271.3.579.2. 462 Unknown [id number] 2.16.840.1.823142.3.579.2. 462 Unknown [id number] 2.16.840.1.094622.3.579.2. 462 Unknown [id number] 2.16.840.1.444331.3.579.2. 462 Unknown [id number] 2.16.840.1.126185.3.579.2. 462 Unknown [id number] 2.16.840.1.216556.3.579.2. 462 Unknown [id number] 2.16.840.1.817107.3.579.2. 462 Unknown [id number] 2.16.840.1.758341.3.579.2. 462 Unknown [id number] 2.16.840.1.312160.3.579.2. 462 Unknown [id number] 2.16.840.1.436303.3.579.2. 462 Social History Date Type Detail Facility Tobacco smoking status UTIS Unknown if ever smoked [facility] Work Phone: Start: 1955 Sex Assigned At Not on file [email or web address] Work Phone: Start: 11-05-2018 End: 06-26-2020 Tobacco smoking status NHIS Former smoker [employer] Phone: End: 02-06-2016 History of tobacco use Current smoker [employer] Phone: End: 02-06-2016 History of tobacco use Cigar Smoker [employer] Phone: Start: 02-05-2018 End: 06-26-2020 Tobacco use and exposure Never used [facility] Work Phone: Start: 06-26-2020 End: 05-20-2022 Alcohol intake Current drinker of alcohol (finding) [email or web address] Work Phone: Start: 07-08-2018 Alcohol Comment 2 times per wo rk, occasionally liquor [email or web address] Work Phone: Start: 05-10-2022 End: 05-20-2022 Exposure to SARS-CoV-2 (event) Not sure [email or web address] Work Phone: Start: 09-22-2020 End: 05-20-2022 Alcohol intake [facility] [employer] Start: 1955 Sex Assigned At Male [facility] End: 02-06-2016 History of tobacco use Cigarette Smoker [facility] [employer] Start: 05-20-2022 End: 10-02-2023 Tobacco use panel [facility] [employer] How often to you have a drink containing alcohol? Never [facility] [employer] How many standard drinks containing alcohol do you have on a typical day? Patient does not drink [facility] [employer] Start: 11-29-2021 End: 08-16-2024 Sex Male (finding) [facility] [employer] Tobacco smoking status NHIS Unknown if ever smoked [facility] Work Phone: NEGATED: Highlighted rowStart: 05-22-2019 End: 05-22-[address] [facility] Work Phone: NEGATED: Highlighted rowStart: 05-22-2019 End: 05-22-2019 Assertion Current some day smoker [facility] Work Phone: NEGATED: Highlighted rowStart: 05-22-2019 End: 05-22-2019 Details of drug misuse behavior Details of drug misuse behavior [facility] Work Phone: NEGATED: Highlighted rowStart: 05-22-2019 End: 05-22-2019 Tobacco use and exposure Tobacco use and exposure [facility] Work Phone: Clinical Notes 03-18-2021 to 05-03-2024 [...] to fax the information to the office. [phone] [facility] 05-03-2024 Miscellaneous Notes Gissel is calling to let Dr. Burgos know that the medication he prescribed he not certified, she is going to fax the information to the office. [phone] documented in this encounter [facility] 11-22-2023 History of Presen t illness Narrative Images from the original note were not included. Speech-Language Pathology SPEECH LANGUAGE PATHOLOGY [facility] Modified Barium Swallow Study Patient Name: Kathya Hopoer Evaluation Date: 11/22/2023 Date of : 1955 [...] despite effort. 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 Frequency: Per treating CLOTH SHADER Barriers: large osteophytes, bridging with anterior projection [...] Prior MBSS?: No, unable to locate in [facility] Current Diet: Puree diet with ?liquid (no information from [place]) Textures tested: - thin liquid, (cup edge) - mildly thick liquid, (cup edge) - puree, (teaspoon) Patient position: lateral Past Medical History: Past Medical History: Diagnosis Date TREVER (acute kidney injury) ([facility]/HCC) ([facility]) Alcohol abuse 07/08/2018 Anxiety C1 spinal cord injury ([facility]) ([facility]) Depression Fall 06/2018 Schizophrenia ([facility]) Past Surgical History: Past Surgical History: Procedure Laterality Date CERVICAL FUSION 07/09/2014 C2-6 cervical fusion GASTROSTOMY TUBE PLACEMENT 07/13/2018 TRACHEOSTOMY 07/13/2018 Admission Diagnosis: Patient Active Problem List Diagnosis Date Noted Respiratory syncytial virus (RSV) 03/22/2021 Hypoxia 03/19/2021 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[facility]/HCC) ([facility]) 08/16/2018 Chronic latent schizophrenia ([facility]) 08/15/2018 Prolonged Q-T interval on ECG 08/15/2018 Abdominal wall abscess 08/15/2018 Central cord syndrome ([facility]/HCC) ([facility]) 08/15/2018 Respiratory failure after trauma ([facility]) 08/15/2018 Pressure ulcer of sacral region, stage 2 ([facility]) 08/09/2018 Urinary retention 07/28/2018 Acute respiratory failure with hypoxia ([facility]) 07/26/2018 Mild bibasilar atelectasis 07/26/2018 Hospital-acquired pneumonia 07/26/2018 Bilateral pleural effusion 07/26/2018 Ileus (CMS/HCC) ([facility]) 07/23/2018 TREVER (acute kidney injury) ([facility]) 07/23/2018 Hypokalemia 07/21/2018 Vertebral artery occlusion, bilateral 07/11/2018 Vitamin D insufficiency 07/10/2018 Alcohol abuse 07/08/2018 Closed wedge compression fracture of first thoracic vertebra ([facility]) 07/08/2018 Traumatic nondisp spondylolisthesis of C3 vertebra with closed fx, initial encounter ([facility]) 07/08/2018 Closed fracture dislocation of cervical spine ([facility]) 07/08/2018 Pain: Pt denies any current pain. Reason for current admission: Pt with h/o of PEG and trach from 2019. Pt is currently decannulated. H/o It [employer] cervical fusion C2-C6. Noted very large connective [...] able to eat by mouth. Therapy Time CLOTH SHADER Individual Minutes Time In: 1150 Time Out: 1215 Minutes: 25 ZACHARY Sun documented in this encounter [facility] 10-02-2023 Emergency department Note [facility] at bedside at this time Mami Lantigua RN 10/02/23 1427 [facility] 10-02-2023 Emergency department Note [facility] at bedside at this time Mami Lantigua RN 10/02/23 1427 This RN gave report to Marnie at [facility] at this time Mami Lantigua RN 10/02/23 1358 This RN went to evaluate patient, was on 2L o2 and does not wear at baseline, plan is dc, this RN turned o2 off to trial patient, spo2 monitor on Mami Lantigua RN 10/02/[address] cart Eliosa Alfaro RN 10/02/23 1047 Emergency Department Encounter [facility] ED Patient: Kathya Hooper : [...] words are mis-transcribed.) Fei Farooq MD [facility] Fei Farooq MD 10/02/23 6785 Pt was brought in via [facility] from [facility] for Left sided facial droop. Per EMS nurse is new and does not know patient very well but he is A&O x 2 at baseline. Per EMS the nurse states it was 20 mins ago. Contacted nurse that was caring for him and she states that was the first time she has seen him for that day, electrician station assistant did not report any problems. EMS states [...] schizophrenia. BS 131. documented in this encounter [facility] 10-02-2023 Emergency department Note This RN gave report to Marnie at [facility] at this time Mami Lantigua RN 10/02/23 6740 [facility] 10-02-2023 Emergency department Note This RN went to evaluate patient, was on 2L o2 and does not wear at baseline, plan is dc, this RN turned o2 off to trial patient, spo2 monitor on Mami Lantigua RN 10/02/23 1325 [facility] 10-02-2023 Emergency department Note Pt to ct via cart Eloisa Alfaro RN 10/02/23 1043 [facility] 10-02-2023 Emergency department Triage note Pt was brought in via [facility] from [facility] for Left sided facial droop. Per EMS nurse is new and does not know patient very well but he is A&O x 2 at baseline. Per EMS the nurse states it was 20 mins ago. Contacted nurse that was caring for him and she states that was the first time she has seen him for that day, electrician station assistant did not report any problems. EMS states [...] the facility. Hx of schizophrenia. BS 131. [facility] 10-02-2023 Physician Emergency department Note Emergency Department Encounter [facility] ED Patient: Kathya Hooper : [...] [employer] Fei Farooq MD 10/02/23 112 [employer] Work Phone: 05-20-2022 Emergency department Note Report called to [facility]. Copy of Xray report sent with discharge packet Gary Ghosh RN 05/20/222007 [employer] 05-20-2022 Emergency department Note Report called to [facility]. Copy of Xray report sent with discharge packet Gary Ghosh RN 05/20/222007 Emergency Department Encounter [facility] ED Patient: Kathya Hooper : 1955 Date of Evaluation: 05/20/2022 ED Supervising Physician: Abelardo Rios DO I independently examined and evaluated Kathya Hooper. This will serve as my Supervisory note as the burnt lime drawer of record and shared attestation. I did perform a substantive portion of the visit including all aspects of the Medical Decision Making. I wore appropriate PPE for the entirety of this encounter. In brief, Kathya Hooper is a 67 y.o. male that presents to the emergency department after his G-tube fell out today at the [facility]. Upon inspection of the G-tube, it appears [...] tube which fell out today at the [facility]. Tube was easily replaced in the emergency room. Will order KUB with dye study to confirm placement and discharge back to the [facility]. X-ray confirms due to position within the [...] provider for clarification.) Abelardo Rios DO [facility] Abelardo Rios DO 05/20/222014 documented in this encounter [facility] 05-20-2022 Miscellaneous Notes Associated Order(s): Feeding Tube Replacement Procedure Feeding Tube Replacement Performed by: Dejah Hazel DO Authorized by: Abelardo Rios DO Consent: Consent obtained: Verbal Consent given by: Patient [place] protocol: Patient identity confirmed: Verbally with patient [...] DO Resident 05/20/221931 documented in this encounter [employer] 05-20-2022 Note Associated Order(s): Feeding Tube Replacement Procedure Feeding Tube Replacement Performed by: Dejah Hazel DO Authorized by: Abelardo Rios DO Consent: Consent obtained: Verbal Consent given by: Patient [employer] protocol: Patient identity confirmed: Verbally with patient [...] immediate complications Dejah Hazel DO Resident 05/20/221931 [employer] Phone: 05-20-2022 Note Associated Order(s): Feeding Tube Replacement Procedure Feeding Tube Replacement Performed by: Dejah Hazel DO Authorized by: Abelardo Rios DO Consent: Consent obtained: Verbal Consent given by: Patient [employer] protocol: Patient identity confirmed: Verbally with patient [...] immediate complications Dejah Hazel DO Resident 05/20/221931 [employer] Phone: 05-20-2022 Physician Emergency department Note Emergency Department Encounter [facility] ED Patient: Kathya Hooper : 1955 Date of Evaluation: 05/20/2022 ED Supervising Physician: Abelardo Rios, DO I independently examined and evaluated Kathya Hooper. This will serve as my Supervisory note as the burnt lime drawer of record and shared attestation. I did perform a substantive portion of the visit including all aspects of the Medical Decision Making. I wore appropriate PPE for the entirety of this encounter. In brief, Kathya Hooper is a 67 y.o. male that presents to the emergency department after his G-tube fell [facility] today at the [facility]. Upon inspection of the G-tube, it appears [...] tube which fell out today at the [facility]. Tube was easily replaced in the emergency room. Will order KUB with dye study to confirm placement and discharge back to the [facility]. X-ray confirms due to position within the [...] [employer] Abelardo Rios DO 05/20/222014 [employer] Work Phone: 03-24-2021 Note Hospitalist Discharg e [...] Pneumonia. Treated with antibiotics. He [facility] in [facility]. He was stablized and discharged Diet NPO [...] Result Date: 03/18/2021 [id number] Tom[facility] ACCESSION EXAM DATE/TIME PROCEDURE ORDERING PROVIDER [phone] 03/18/2021 16:26 EST CTA Head/Neck w/ + w/o [id number] -alyson CASTRO CPT code 71713 [id number] Q9967 Reason For Exam (CTA Head/Neck w/ + w/o contrast) AMS, dysphasia and ?aphasia possibly since yesterday- very poor historian from [facility] w/ unclear prior deficits - here w/ [...] airway at the (more content not included)... [facility] 03-24-2021 Hospital course Narrative Hospitalist Discharge Summary [...] Pneumonia. Treated with antibiotics. He resides in [facility]. He was stablized and discharged Diet NPO ADULT TUBE FEEDING; PEG; 2.0 Calorie; Cyclic; 75; 6:00 PM; 9:00 AM; 200; Q 4 hours Vitals: BP (!) 85/55 Pulse 85 Temp 97.7 F (36.5 C) (Temporal) Resp 18 Ht 6' 2.02 (1.88 m) Wt 185 lb 14.4 oz (84.3 kg) Comment: per Nataly FATIMA (bed scale measurement) on 03/20/2021 SpO2 94% [...] Tomography ACCESSION EXAM DATE/TIME PROCEDURE ORDERING PROVIDER [id number] 03/18/2021 16:26 EST CTA Head/Neck w/ + w/o [id number] alyson ARCHIBALD CPT code 01925 83136 Q9967 Reason For Exam (CTA Head/Neck w/ + w/o contrast) AMS, dysphasia and ?aphasia possibly since yesterday- very poor historian from [facility] w/ unclear prior deficits - here w/ [...] Tomography ACCESSION EXAM DATE/TIME PROCEDURE ORDERING PROVIDER [id number] 03/18/2021 16:27 EST CTA Chest w/ + w/o [id number] -Alyson CASTRO CPT code 22634 Q9967 Reason For Exam (CTA Chest w/ + w/o Contrast) pulmonary embolus Report CTA chest with and without contrast History: chest pain Protocol: 1 mm images after IV contrast, 3D rendering performed by az on a separate workstation No evidence of [...] Radiology ACCESSION EXAM DATE/TIME PROCEDURE ORDERING PROVIDER [id number] 03/19/2021 17:10 EST CR Chest Portable [id number] -BRADY DESAI CPT code 17001 Reason For Exam (CR Chest Portable) hypoxia [...] Result Date: 03/18/2021 [id number] Radiology ACCESSION EXAM DATE/TIME PROCEDURE ORDERING PROVIDER [id number] 03/18/2021 15:30 EST CR Chest Portable [id number] -BOO CASTRO CPT code 44118 Reason For Exam (CR Chest Portable) sob, [...] Contact Information Primary Emergency Contact: Jason Hooper [facility] Relation: Parent Past Surgical History: Past Surgical History: Procedure Laterality Date CERVICAL FUSION 07/09/2014 C2-6 cervical fusion GASTROSTOMY TUBE PLACEMENT 07/13/2018 TRACHEOSTOMY 07/13/2018 Immunization History: Immunization History Administered Date(s) Administered Pneumococcal Polysaccharide ([id number]) 01/10/2017 Tdap (Boostrix, Adacel) 01/10/2017 Active Problems: Patient Active Problem List Diagnosis Code Closed fracture dislocation of cervical spine ([facility]) S12.9XXA Traumatic nondisp spondylolisthesis of C3 vertebra with closed fx, initial encounter ([facility]) S12.231A Closed wedge compression fracture of first thoracic vertebra ([facility]) S22.010A Central cord syndrome ([facility]) S14.129A Chronic latent schizophrenia ([facility]) F21 Alcohol abuse F10.10 Respiratory failure after trauma ([facility]) J96.90 Vitamin D insufficiency E55.9 Vertebral artery occlusion, 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 Hypokalemia E87.6 Ileus ([facility]) K56.7 TREVER (acute kidney injury) ([facility]) N17.9 Acute respiratory failure with hypoxia ([facility]) J96.01 Hospital-acquired pneumonia J18.9, Y95 Bilateral pleural effusion J90 Mild bibasilar atelectasis J98.11 Urinary retention R33.9 Prolonged Q-T interval on ECG R94.31 Pressure ulcer of sacral region, stage 2 ([facility]) L89.152 Abdominal wall abscess L02.211 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[facility]) K65.4 Hypoxia R09.02 Respiratory syncytial [...] (84.3 kg) Mental Status: {IP PT MENTAL STATUS:98434} IV Access: { CHRIS IV ACCESS:197659391} Nursing Mobility/ADLs: Walking {CHP DME ADLs:740465048} Transfer {P DME ADLs:501811261} Bathing {P DME ADLs:830878724} Dressing {CHP DME ADLs:862461397} Toileting {P DME ADLs:952657189} Feeding {P DME ADLs:004482409} Ruby Rails Developer {P DME ADLs:612224060} Med Delivery { CHRIS MED Delivery:488627151} Wound Care Documentation and Therapy: Negative Pressure Wound Therapy Abdomen Left (Active) Number of days: 947 Wound Sacrum Mid (Active) Number of days: Elimination: Continence: Bowel: {YES / NO:} Bladder: {YES / NO:} Urinary Catheter: {Urinary Catheter:819068878} Colostomy/Ileostomy/Ileal Conduit: {YES / NO:} Date of Last BM: No intake or output data in the 24 hours ending 03/24/21 1013 I/O last 3 completed shifts: In: 660 [NG/GT:660] Out: - Safety Concerns: { CHRIS Safety Concerns:302553914} Impairments/Disabilities: { CHRIS Impairments/Disabilities:05686016 3} Nutrition Therapy: Current Nutrition Therapy: { CHRIS Diet List:185310521} Routes of Feeding: {[facility] Other Feedings:262743384} Liquids: {[facility] liquid thickness:92701} Daily Fluid Restriction: {[facility] DME Yes amt example:560699059} Last Modified Barium Swallow with Video (Video Swallowing Test): {Done Not Done Date:} Treatments at the Time of Hospital Discharge: Respiratory Treatments: Oxygen Therapy: {Therapy; copd oxygen:31665} Ventilator: {[facility] Vent List:009361867} Rehab Therapies: {THERAPEUTIC INTERVENTION:2503257223} Weight Bearing Status/Restrictions: {[facility] Weight Bearin} Other Medical Equipment (for information only, NOT a DME order): {EQUIPMENT:356097954} Other Treatments: Patient's personal belongings (please select all that are sent with patient): {[facility] DME Belongings:728870514} RN SIGNATURE: {Esignature:919192384} CASE MANAGEMENT/SOCIAL WORK SECTION Inpatient Status Date: Readmission Risk Assessment Score: Readmission Risk Risk of Unplanned Readmission: 25 Discharging to Facility/ Agency Name: [facility] Address: [address] [place] [id number] Dialysis Facility (if applicable) Name: Address: Dialysis Schedule: Phone: Fax: Property Caretaker/Silk Folder signature: PHYSICIAN SECTION Prognosis: Good Condition at Discharge: Stable Rehab Potential (if transferring to Rehab): Good Recommended Labs or Other Treatments After Discharge: Physician Certification: I certify the above information and transfer of Kathya Hooper is necessary for the continuing treatment of the diagnosis listed and that he requires Nursing Home Facility for greater 30 days. Update Admission [...] loss Fluid Accumulation: No significant fluid accumulation English Faculty Member Strength: Not Performed Estimated Daily Nutrient Needs: Energy (kcal): 5682-0703 (25-30 kcal/kg IBW); Weight Used for Energy Requirements: [place] (86.2 kg) Protein (g): 86-103 (1.0-1.2 g protein/kg IBW); Weight Used for Protein Requirements: [place] (86.2 kg) Fluid (ml/day): per MD. At [...] on 03/02/21, January weight= 185.5# on 01/29/21) [place] Body Weight: 190 lbs; % [place] Body Weight 97.8 % BMI: 24 Adjusted [...] Skin, Weight Discharge Planning: Enteral Nutrition Contact: *[phone] Images from the original note were not included. Hospitalist Progress Note 03/23/2021 9:27 AM Subjective: Admit Date: 03/19/2021 PCP: No primary care provider on file. Room#: 465/4655 Patient seen and examined. Laying in bed. [...] from the original note were not included. [facility], Pulmonary Critical Care and Sleep Medicine [address] [place] [address] Patient - Kathya Hooper, Age - 66 y.o. - 1955 Room Number - 465/5371 Consulting - Rafa Michel MD Primary Care Physician - No primary care provider on file. [id number] Date of Admission - 03/19/2021 3:52 PM [...] PLT 211 BMP: Recent Labs 03/21/21 0156 03/21/216 03/23/21 0348 NA 136 < > 142 [...] of bed. Pt thought there was a coper hand in the corner of his room. When pt got his meds he calmed down. Pt now watching tv. Call light within reach. Bed alarm on. Images from the original note were not included. [facility] [place] [place], Pulmonary Critical Care and Sleep Medicine [address] [place], [place] [id number] Patient - Kathya Hooper, Age - 66 [...] No primary care provider on file. Room#: [id number]/8003 Patient seen and examined. Laying in bed. [...] y.o. - 1955 Room Number - 465/4651 N - [id number] Date of Admission - 03/19/2021 3:52 PM [...] Date 03/21/21 0000 - 03/21/21 2359 Shift [id number] 4139-9106 1699-6185 24 Hour Total INTAKE NG/GT(mL/kg) 542(6.4) 542(6.4) [...] included. Hospitalist Progress Note 03/21/2021 9:41 AM [phone]: Please page me for patient care issues. [phone]: Please page [facility] night Hospitalist for any issues. Subjective: [...] 11.4 INR 1.1 CARDIAC ENZYMES: Recent Labs 03/19/210 03/20/21 0023 [...] and s/p Trach PEG 07/13/2018. Presented from [facility] to [facility] ED with worsening SOB. Evaluated in ED [...] loss Fluid Accumulation: No significant fluid accumulation English Faculty Member Strength: Not Performed Estimated Daily Nutrient Needs: Energy (kcal): 1793-1688 (25-30 kcal/kg IBW); Weight Used for Energy Requirements: [place] (86.2 kg) Protein (g): 86-103 (1.0-1.2 g protein/kg IBW); Weight Used for Protein Requirements: [place] (86.2 kg) Fluid (ml/day): per MD. At facility receivin mL free water daily from EN and flushes; Method Used for Fluid Requirements: Other (Comment) Nutrition Related Findings: Massimo score= 15. No skin breakdown or edema noted. S/p Trach/PEG, per CLOTH SHADER note, does not take any food, drink [...] on 03/02/21, October weight= 185.5# on 01/29/21) [place] Body Weight: 190 lbs; % [place] Body Weight 97.8 % BMI: 23.9 BMI [...] Too soon to determine, Enteral Nutrition Contact: [phone] Speech Language Pathology Facility/Department: [facility] TELEMETRY CLINICAL BEDSIDE SWALLOW EVALUATION [...] states that she is the only family [phone] Images from the original note were not included. Hospitalist Progress Note 03/20/2021 9:58 AM [phone]: Please page me for patient care issues. [phone]: Please page [facility] night Hospitalist for any issues. Subjective: Admit Date: 03/19/2021 PCP: No primary care provider on file. Room#: 465/1260 Interval History: He continues to have cough [...] NIF -20 [facility]-18-[facility]21 Hospital Discharg Boo Stringer MD - 03/18/2021 Mr. Hooper was seen at the [facility] emergency department for low oxygen levels. [...] cannot be sent through Care Everywhere.Viral Infections (Trinidadian)documented in this encounter [facility] Work Phone: Evaluation note Diagnosis PEG tube malfunction (HCC)- Primary Mechanical complication of gastrostomy documented in this encounter [facility] Work Phone: Evaluation note* Diagnosis Feeding tube dysfunction, initial encounter- Primary documented [facility] Work Phone: Evaluation note* Diagnosis Respiratory [...] encounter- Primary documented in [facility] encounter [facility] Work Phone: Evaluation noteNo assessment information available [facility] Work Phone: Evaluation note* Diagnosis Dyspnea, unspecified type- Primary documented in [facility] encounter [facility]* Diagnosis Dysphagia, oropharyngeal phase Feeding difficulties Feeding difficulties and mismanagement [facility] Diagnosis Dysphagia, oropharyngeal phase- Primary Feeding difficulties Feeding difficulties and mismanagement Dysphagia, oropharyngeal phase Feeding difficulties Feeding difficulties and mismanagement [facility] Dislodged [facility]stomy tube- Primary [facility] Diagnosis Chronic cough Cough [facility] Diagnosis Chronic cough- Primary Cough Chronic cough Cough [facility] Attachments The following attachments cannot be sent through Care Everywhere. * PEG (Percutaneous Endoscopic Gastrostomy): Post-op (Trinidadian) documented in this [facility] Work Phone: Hospital Discharge instructions* Attachments The following attachments cannot be sent through Care Everywhere. * Feeding Tube: General Info (Trinidadian) documented in this [facility] Work Phone: Hospital Discharge instructions* Instructions* Mary Cochran PA-C - 05/15/2021 Please return to the ED if you have any new or worsening symptoms. documented in this [facility] Work Phone: Hospital Discharge instructions* Attachments The following attachments cannot be sent through Care Everywhere. * Hip Pain (Trinidadian) * Contusion (Trinidadian) documented in this [facility] Work Phone: Hospital Discharge instructions* Attachments The following attachments cannot be sent through Care Everywhere. * Shortness of Breath (Dyspnea) Discharge Instructions (Trinidadian) documented in this [facility] Discharge instructions* Attachments The following attachments cannot be sent through Care Everywhere. * How to Care for Your Gastrostomy Tube (Trinidadian) [facility] (narrative)No reason for referral information availableWGerman Hospital Work Phone: Reason for visit Narrative* Imaging (Routine) - Closed Specialty Diagnoses / Procedures Referred By Soo t Referred To Contact Radiology Diagnoses Chronic cough Procedures CT chest wo IV contrast Rashaad Smith APRN - NP [id number] [address] Phone: tel: fax: Referral ID Status Reason Start Date Expiration Date Visits Re quested Visits Authorized [id number] Closed 06/12/2024 06/12/2025 1 1 [facility] Summary Purpose Family History No Family History Records FoundNo Family History Records FoundThere may be information available, but it has not been provided by the sender.No Family History Records FoundNo Family History Records FoundNo Family History Records FoundNo Family History Records Found Advance Directives No Advanced Directives Records FoundDocuments on File Type Date Recorded 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 ACP-Advance Directive ACP-Advance Directive 08/07/2018 1:53 PM ACP-Power of Mine Foreman Latest Code Status on File Code Status Date Activated Date Inactivated Comments Full Code 08/15/2018 8:27 PM 08/22/2018 4:31 PM Full Code 08/15/2018 8:12 PM 08/15/2018 8:27 PM Full Code 07/08/2018 8:28 PM 08/01/2018 2:39 PM Documents on File Type Date Recorded 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 ACP-Advance Directive ACP-Power of Mine Foreman ACP-Advance Directive 08/07/2018 1:53 PM Latest Code Status on File Code Status Date Activated Date Inactivated Comments Full Code 03/20/2021 12:17 AM Full Code 08/15/2018 8:27 PM 08/22/2018 4:31 PM Documents on File Type Date Recorded 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 ACP-Advance Directive ACP-Power of Mine Foreman ACP-Advance Directive 03/26/2021 9:48 AM ACP-Advance Directive 08/07/2018 1:53 PM Latest Code Status on File Code Status Date Activated Date Inactivated Comments Full Code 03/20/2021 12:17 AM 03/24/2021 3:23 PM Documents on File Type Date Recorded 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 Advance Directives and Livin g Will Advance Directives and Livin g Will 08/07/2018 1:53 PM Power of Mine Foreman Documents on File Type Date Recorded 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 * Feeding Tube: General Info (Trinidadian) documented in this encounter Assessments Diagnosis PEG [...] Complaint and Reason for Visit Chief Complaint LONG TERM LABWORK LONG TERM LAB WORK LONG TERM LABWORK LONG TERM LABWORK LONG TERM LABWORK LONG TERM LAB WORK LONG TERM LABWORK LONG TERM LABWORK LONG TERM LABWORK LONG TERM LABWORK LONG TERM LABWORK LONG TERM LAB WORK LONG TERM LABWORK NURING HOME LABWORK LONG TERM LABWORK LONG TERM LAB WORK LONG TERM LABWORK Chief Complaint LONG TERM LABWORK LONG TERM LABWORK LONG TERM LABWORK LONG TERM LAB WORK LONG TERM LABWORK NURING HOME LABWORK LONG TERM LABWORK LONG TERM LAB WORK LONG TERM LABWORK LONG TERM LABWORK LONG TERM LAB WORK LONG TERM LAB WORK LONG TERM BLOOD WORK LONG TERM LABWORK LONG TERM LAB WORK Chief Complaint LONG TERM LABWORK LONG TERM LABWORK LONG TERM LAB WORK LONG TERM LABWORK NURING HOME LABWORK LONG TERM LABWORK LONG TERM LAB WORK LONG TERM LABWORK LONG TERM LABWORK LONG TERM LAB WORK LONG TERM LAB WORK LONG TERM BLOOD WORK LONG TERM LABWORK LABWORK LABWORK LONG TERM LAB WORK Chief Complaint LONG TERM LABWORK LONG TERM LAB WORK LONG TERM LABWORK NURING HOME LABWORK LONG TERM LABWORK LONG TERM LAB WORK LONG TERM LABWORK LONG TERM LABWORK LONG TERM LAB WORK LONG TERM LAB WORK LONG TERM BLOOD WORK LONG TERM LABWORK LABWORK LABWORK LONG TERM LAB WORK Chief Complaint LONG TERM LAB WOR K LONG TERM LABWORK NURING HOME LABWORK LONG TERM LABWORK LONG TERM LAB WORK LONG TERM LABWORK LONG TERM LABWORK LONG TERM LAB WORK LONG TERM LAB WORK LONG TERM BLOOD WORK LONG TERM LABWORK LABWORK LABWORK LONG TERM LAB WORK Chief Complaint LONG TERM LAB WOR K LONG TERM LABWORK NURING HOME LABWORK LONG TERM LABWORK LONG TERM LAB WORK LONG TERM LABWORK LONG TERM LABWORK LONG TERM LAB WORK LONG TERM LAB WORK LONG TERM BLOOD WORK LONG TERM LABWORK LABWORK LABWORK LONG TERM LAB WORK LABWORK LONG TERM LABWORK Chief Complaint LONG TERM LABWORK NURING HOME LABWORK LONG TERM LABWORK LONG TERM LAB WORK LONG TERM LABWORK LONG TERM LABWORK LONG TERM LAB WORK LONG TERM LAB WORK LONG TERM BLOOD WORK LONG TERM LABWORK LABWORK LABWORK LONG TERM LAB WORK LABWORK LONG TERM LABWORK LONG TERM LAB WORK Chief Complaint LONG TERM BLOOD W ORK LONG TERM LABWORK LONG TERM LABWORK LABWORK LABWORK LONG TERM LAB WORK LABWORK LONG TERM LABWORK LONG TERM LAB WORK LABWORK LONG TERM LAB WORK LONG TERM LAB WORK LABWORK LONG TERM LAB WORK Chief Complaint LONG TERM BLOOD W ORK LONG TERM LABWORK LONG TERM LABWORK LABWORK LABWORK LONG TERM LAB WORK LABWORK LONG TERM LABWORK LONG TERM LAB WORK LABWORK LONG TERM LAB WORK LONG TERM LAB WORK LABWORK LONG TERM LAB WORK LABWORK Chief Complaint LABWORK LABWORK LONG TERM LAB WORK LABWORK LONG TERM LABWORK LONG TERM LAB WORK LABWORK LONG TERM LAB WORK LONG TERM LAB WORK LABWORK LONG TERM LAB WORK LABWORK LONG TERM LAB WORK Chief Complaint LABWORK LONG TERM LAB WORK LABWORK LONG TERM LABWORK LONG TERM LAB WORK LABWORK LONG TERM LAB WORK LONG TERM LAB WORK LABWORK LONG TERM LAB WORK LABWORK LONG TERM LAB WORK LONG TERM LABWORK Chief Complaint LABWORK LONG TERM LABWORK LONG TERM LAB WORK LABWORK LONG TERM LAB WORK LONG TERM LAB WORK LABWORK LONG TERM LAB WORK LABWORK LONG TERM LAB WORK LONG TERM LABWORK LONG TERM LABWORK LABWORK LONG TERM LAB WORK Chief Complaint LONG TERM LAB WOR K LABWORK LONG TERM LAB WORK LONG TERM LAB WORK LABWORK LONG TERM LAB WORK LABWORK LONG TERM LAB WORK LONG TERM LABWORK LONG TERM LABWORK LABWORK LONG TERM LAB WORK LONG TERM LAB WORK Chief Complaint LONG TERM LAB WOR K LONG TERM LAB WORK LABWORK LONG TERM LAB WORK LABWORK LONG TERM LAB WORK LONG TERM LABWORK LONG TERM LABWORK LABWORK LONG TERM LAB WORK LONG TERM LAB WORK LABWORK LONG TERM LAB WORK Chief Complaint LONG TERM LAB WOR K LABWORK LONG TERM LAB WORK LABWORK LONG TERM LAB WORK LONG TERM LABWORK LONG TERM LABWORK LABWORK LONG TERM LAB WORK LONG TERM LAB WORK LABWORK LONG TERM LAB WORK LONG TERM LAB WORK Chief Complaint LONG TERM LAB WOR K LABWORK LONG TERM LAB WORK LONG TERM LABWORK LONG TERM LABWORK LABWORK LONG TERM LAB WORK LONG TERM LAB WORK LABWORK LONG TERM LAB WORK LABWORK LONG TERM LAB WORK LONG TERM LAB WORK LONG TERM LABWORK LONG TERM LABWORK Chief Complaint LABWORK LONG TERM LAB WORK LONG TERM LABWORK LONG TERM LABWORK LABWORK LONG TERM LAB WORK LONG TERM LAB WORK LABWORK LONG TERM LAB WORK LABWORK LONG TERM LAB WORK LONG TERM LAB WORK LONG TERM LABWORK LABWORK LONG TERM LABWORK Chief Complaint LABWORK LONG TERM LAB WORK LONG TERM LAB WORK LABWORK LONG TERM LAB WORK LABWORK LONG TERM LAB WORK LONG TERM LAB WORK LONG TERM LABWORK LABWORK LONG TERM LABWORK LONG TERM LAB WORK Chief Complaint LONG TERM LAB WOR K LABWORK LONG TERM LAB WORK LONG TERM LAB WORK LONG TERM LABWORK LABWORK LONG TERM LABWORK LONG TERM LAB WORK LABWORK LABWORK LABWORK LABWORK LONG TERM LABWORK LONG TERM LAB WORK LABWORK LABWORK Chief Complaint LABWORK LONG TERM LAB WORK LONG TERM LAB WORK LONG TERM LABWORK LABWORK LONG TERM LABWORK LONG TERM LAB WORK LABWORK LABWORK LABWORK LABWORK LONG TERM LABWORK LONG TERM LAB WORK LABWORK LABWORK LONG TERM LABWORK Chief Complaint LONG TERM LAB WOR K LONG TERM LAB WORK LONG TERM LABWORK LABWORK LONG TERM LABWORK LONG TERM LAB WORK LABWORK LABWORK LABWORK LABWORK LONG TERM LABWORK LONG TERM LAB WORK LABWORK LABWORK LONG TERM LABWORK LONG TERM LAB WORK Chief Complaint LONG TERM LABWORK LABWORK LONG TERM LABWORK LONG TERM LAB WORK LABWORK LABWORK LABWORK LABWORK LONG TERM LABWORK LONG TERM LAB WORK LABWORK LABWORK LONG TERM LABWORK LONG TERM LAB WORK LONG TERM LABWORK LONG TERM LAB WORK Chief Complaint LABWORK LONG TERM LABWORK LONG TERM LAB WORK LABWORK LABWORK LABWORK LABWORK LONG TERM LABWORK LONG TERM LAB WORK LABWORK LABWORK LONG TERM LABWORK LONG TERM LAB WORK LONG TERM LABWORK LABWORK LONG TERM LAB WORK Chief Complaint LABWORK LABWORK LABWORK LABWORK LONG TERM LABWORK LONG TERM LAB WORK LABWORK LABWORK LONG TERM LABWORK LONG TERM LAB WORK LONG TERM LABWORK LABWORK LONG TERM LAB WORK LABWORK LONG TERM LABWORK Chief Complaint LABWORK LONG TERM LABWORK LONG TERM LAB WORK LABWORK LABWORK LONG TERM LABWORK LONG TERM LAB WORK LONG TERM LABWORK LABWORK LONG TERM LAB WORK LABWORK LONG TERM LABWORK LABWORK LABWORK Chief Complaint LONG TERM LABWORK LONG TERM LAB WORK LABWORK LABWORK LONG TERM LABWORK LONG TERM LAB WORK LONG TERM LABWORK LABWORK LONG TERM LAB WORK LABWORK LONG TERM LABWORK LABWORK LABWORK LABWORK LONG TERM LAB WORK LONG TERM LAB WORK LONG TERM LABWORK Chief Complaint LONG TERM LABWORK LONG TERM LAB WORK LABWORK LABWORK LONG TERM LABWORK LONG TERM LAB WORK LONG TERM LABWORK LABWORK LONG TERM LAB WORK LABWORK LONG TERM LABWORK LABWORK LABWORK LABWORK LONG TERM LAB WORK LONG TERM LAB WORK LONG TERM LABWORK LONG TERM LABWORK Chief Complaint LABWORK LABWORK LONG TERM LABWORK LONG TERM LAB WORK LONG TERM LABWORK LABWORK LONG TERM LAB WORK LABWORK LONG TERM LABWORK LABWORK LABWORK LABWORK LONG TERM LAB WORK LONG TERM LAB WORK LONG TERM LABWORK LONG TERM LABWORK LONG TERM LAB WORK LABWORK Chief Complaint LONG TERM LABWORK LONG TERM LAB WORK LONG TERM LABWORK LABWORK LONG TERM LAB WORK LABWORK LONG TERM LABWORK LABWORK LABWORK LABWORK LONG TERM LAB WORK LONG TERM LAB WORK LONG TERM LABWORK LONG TERM LABWORK LONG TERM LAB WORK LABWORK LONG TERM LABWORK Chief Complaint LONG TERM LABWORK LABWORK LONG TERM LAB WORK LABWORK LONG TERM LABWORK LABWORK LABWORK LABWORK LONG TERM LAB WORK LONG TERM LAB WORK LONG TERM LABWORK LONG TERM LABWORK LONG TERM LAB WORK LABWORK LONG TERM LABWORK LONG TERM LAB WORK Chief Complaint LABWORK LONG TERM LABWORK LABWORK LABWORK LABWORK LONG TERM LAB WORK LONG TERM LAB WORK LONG TERM LABWORK LONG TERM LABWORK LONG TERM LAB WORK LABWORK LONG TERM LABWORK LONG TERM LAB WORK LONG TERM LABWORK LONG TERM LAB WORK Chief Complaint LABWORK LONG TERM LABWORK LONG TERM LAB WORK LONG TERM LABWORK LONG TERM LAB WORK LONG TERM LABWORK LONG TERM LABWORK LONG TERM LABWORK LONG TERM LABWORK LONG TERM LAB WORK LABWORK LABWORK LONG TERM LABWORK Chief Complaint LONG TERM LABWORK LONG TERM LAB WORK LONG TERM LABWORK LONG TERM LABWORK LONG TERM LABWORK LONG TERM LABWORK LONG TERM LAB WORK LABWORK LABWORK LONG TERM LABWORK LABWORK LONG TERM LAB WORK LONG TERM LAB WORK Chief Complaint LONG TERM LABWORK LONG TERM LABWORK LONG TERM LABWORK LONG TERM LABWORK LONG TERM LAB WORK LABWORK LABWORK LONG TERM LABWORK LABWORK LONG TERM LAB WORK LONG TERM LAB WORK LONG TERM LABWORK LONG TERM LABWORK LONG TERM LAB WORK LONG TERM LAB WORK Chief Complaint LONG TERM LABWORK LONG TERM LABWORK LONG TERM LABWORK LONG TERM LAB WORK LABWORK LABWORK LONG TERM LABWORK LABWORK LONG TERM LAB WORK LONG TERM LAB WORK LONG TERM LABWORK LONG TERM LABWORK LONG TERM LAB WORK LONG TERM LAB WORK Chief Complaint LONG TERM LABWORK LONG TERM LABWORK LONG TERM LABWORK LONG TERM LAB WORK LABWORK LABWORK LONG TERM LABWORK LABWORK LONG TERM LAB WORK LONG TERM LAB WORK LONG TERM LABWORK LONG TERM LABWORK LONG TERM LAB WORK LONG TERM LAB WORK LONG TERM LABWORK LABWORK Chief Complaint LONG TERM LAB WOR K LABWORK LABWORK LONG TERM LABWORK LABWORK LONG TERM LAB WORK LONG TERM LAB WORK LONG TERM LABWORK LONG TERM LABWORK LONG TERM LAB WORK LONG TERM LAB WORK LONG TERM LABWORK LABWORK LONG TERM LAB WORK LABWORK Chief Complaint LONG TERM LAB WOR K LABWORK LABWORK LONG TERM LABWORK LABWORK LONG TERM LAB WORK LONG TERM LAB WORK LONG TERM LABWORK LONG TERM LABWORK LONG TERM LAB WORK LONG TERM LAB WORK LONG TERM LABWORK LABWORK LONG TERM LAB WORK LABWORK LONG TERM LABWORK LONG TERM LAB WORK Chief Complaint LABWORK LABWORK LONG TERM LABWORK LABWORK LONG TERM LAB WORK LONG TERM LAB WORK LONG TERM LABWORK LONG TERM LABWORK LONG TERM LAB WORK LONG TERM LAB WORK LONG TERM LABWORK LABWORK LONG TERM LAB WORK LABWORK LONG TERM LABWORK LONG TERM LAB WORK LABWORK\ Chief Complaint LABWORK LONG TERM LABWORK LABWORK LONG TERM LAB WORK LONG TERM LAB WORK LONG TERM LABWORK LONG TERM LABWORK LONG TERM LAB WORK LONG TERM LAB WORK LONG TERM LABWORK LABWORK LONG TERM LAB WORK LABWORK LONG TERM LABWORK LONG TERM LAB WORK LABWORK\ LABWORK Chief Complaint LONG TERM LAB WOR K LONG TERM LAB WORK LONG TERM LABWORK LONG TERM LABWORK LONG TERM LAB WORK LONG TERM LAB WORK LONG TERM LABWORK LABWORK LONG TERM LAB WORK LABWORK LONG TERM LABWORK LONG TERM LAB WORK LABWORK\ LABWORK LONG TERM LAB WORK LABWORK Chief Complaint LONG TERM LAB WOR K LONG TERM LABWORK LONG TERM LABWORK LONG TERM LAB WORK LONG TERM LAB WORK LONG TERM LABWORK LABWORK LONG TERM LAB WORK LABWORK LONG TERM LABWORK LONG TERM LAB WORK LABWORK\ LABWORK LONG TERM LAB WORK LABWORK LABWORK Chief Complaint LONG TERM LABWORK LONG TERM LABWORK LONG TERM LAB WORK LONG TERM LAB WORK LONG TERM LABWORK LABWORK LONG TERM LAB WORK LABWORK LONG TERM LABWORK LONG TERM LAB WORK LABWORK\ LABWORK LONG TERM LAB WORK LABWORK LONG TERM LABWORK LABWORK Chief Complaint LONG TERM LAB WOR K LONG TERM LABWORK LABWORK LONG TERM LAB WORK LABWORK LONG TERM LABWORK LONG TERM LAB WORK LABWORK\ LABWORK LONG TERM LAB WORK LABWORK LONG TERM LABWORK LABWORK LONG TERM LABWORK LONG TERM LAB WORK LABWORK LONG TERM LAB WORK Chief Complaint LONG TERM LABWORK LABWORK LONG TERM LAB WORK LABWORK LONG TERM LABWORK LONG TERM LAB WORK LABWORK\ LABWORK LONG TERM LAB WORK LABWORK LONG TERM LABWORK LABWORK LONG TERM LABWORK LONG TERM LAB WORK LABWORK LONG TERM LAB WORK LABWORK Chief Complaint LONG TERM LAB WOR K LABWORK LONG TERM LABWORK LONG TERM LAB WORK LABWORK\ LABWORK LONG TERM LAB WORK LABWORK LONG TERM LABWORK LABWORK LONG TERM LABWORK LONG TERM LAB WORK LABWORK LONG TERM LAB WORK LABWORK LABWORK Chief Complaint LONG TERM LAB WOR K LABWORK\ LABWORK LONG TERM LAB WORK LABWORK LONG TERM LABWORK LABWORK LONG TERM LABWORK LONG TERM LAB WORK LABWORK LONG TERM LAB WORK LABWORK LABWORK LABWORK LABWORK LABWORK Chief Complaint LABWORK\ LABWORK LONG TERM LAB WORK LABWORK LONG TERM LABWORK LABWORK LONG TERM LABWORK LONG TERM LAB WORK LABWORK LONG TERM LAB WORK LABWORK LABWORK LABWORK LABWORK LABWORK LABWORK Chief Complaint LONG TERM LAB WOR K LABWORK LONG TERM LABWORK LABWORK LONG TERM LABWORK LONG TERM LAB WORK LABWORK LONG TERM LAB WORK LABWORK LABWORK LABWORK LABWORK LABWORK LABWORK LABWORK Chief Complaint LONG TERM LABWORK LABWORK LONG TERM LABWORK LONG TERM LAB WORK LABWORK LONG TERM LAB WORK LABWORK LABWORK LABWORK LABWORK LABWORK LABWORK LABWORK LONG TERM LAB WORK LABWORK Chief Complaint LABWORK LONG TERM LABWORK LONG TERM LAB WORK LABWORK LONG TERM LAB WORK LABWORK LABWORK LABWORK LABWORK LABWORK LABWORK LABWORK LONG TERM LAB WORK LABWORK LABWORK LABWORK Chief Complaint LABWORK LONG TERM LAB WORK LABWORK LABWORK LABWORK LABWORK LABWORK LABWORK LABWORK LONG TERM LAB WORK LABWORK LABWORK LABWORK LONG TERM LAB WORK LONG TERM LAB WORK Chief Complaint LONG TERM LAB WOR K LABWORK LABWORK LABWORK LABWORK LABWORK LABWORK LABWORK LONG TERM LAB WORK LABWORK LABWORK LABWORK LONG TERM LAB WORK LONG TERM LAB WORK LABWORK Chief Complaint LONG TERM LABWORK LONG TERM LAB WORK LONG TERM LAB WORK LONG TERM LABWORK LABWORK LONG TERM LAB WORK LABWORK LONG TERM LABWORK LONG TERM LAB WORK LABWORK\ LABWORK LONG TERM LAB WORK LABWORK LONG TERM LABWORK LABWORK LONG TERM LABWORK Chief Complaint LONG TERM LABWORK LONG TERM LAB WORK LONG TERM LAB WORK LONG TERM LABWORK LABWORK LONG TERM LAB WORK LABWORK LONG TERM LABWORK LONG TERM LAB WORK LABWORK\ LABWORK LONG TERM LAB WORK LABWORK LONG TERM LABWORK LABWORK LONG TERM LABWORK LONG TERM LAB WORK Chief Complaint Admit Date LONG TERM LAB WORK March 11 5:00am LONG TERM LAB WORK March 18 5:00am LABWORK March 25, 2024 5:00am LABWORK April 01, 2024 5 :00am LONG TERM LAB WORK April 08, 2024 5:00am LABWORK April 15, 2024 5:00am LABWORK April 22, 2024 5:00am LONG TERM LAB WORK April 29 5:00am LABWORK May 06, 2024 5: 00am LONG TERM LAB WORK May 13, 2024 4:00am LABWORK May 20, 2024 5 :00am LONG TERM LAB WORK May 27, 2024 5:00am LABWORK June 03, 2024 5 :00am LABWORK June 07, 2024 5 :00am LONG TERM LAB WORK June 10 5:00am LABWORK June 17, 2024 5:00am LONG TERM LAB WORK June 24 5:00am Chief Complaint Admit Date LABWORK April 01, 2024 5 :00am LONG TERM LAB WORK April 08, 2024 5:00am LABWORK April 15, 2024 5:00am LABWORK April 22, 2024 5:00am LONG TERM LAB WORK April 29 5:00am LABWORK May 06, 2024 5: 00am LONG TERM LAB WORK May 13, 2024 4:00am LABWORK May 20, 2024 5 :00am LONG TERM LAB WORK May 27, 2024 5:00am LABWORK June 03, 2024 5 :00am LABWORK June 07, 2024 5 :00am LONG TERM LAB WORK June 10 5:00am LABWORK June 17, 2024 5:00am LONG TERM LAB WORK June 24 5:00am LONG TERM LAB WORK June 27 2:00am LONG TERM LAB WORK July 01, 2024 4: 00am LABWORK July 08, 2024 5:0 0am LONG TERM LAB WORK July 16, 2024 4 :00am Chief Complaint Admit Date LONG TERM LAB WORK April 08, 2024 5:00am LABWORK April 15, 2024 5:00am LABWORK April 22, 2024 5:00am LONG TERM LAB WORK April 29 5:00am LABWORK May 06, 2024 5: 00am LONG TERM LAB WORK May 13, 2024 4:00am LABWORK May 20, 2024 5 :00am LONG TERM LAB WORK May 27, 2024 5:00am LABWORK June 03, 2024 5 :00am LABWORK June 07, 2024 5 :00am LONG TERM LAB WORK June 10 5:00am LABWORK June 17, 2024 5:00am LONG TERM LAB WORK June 24 5:00am LONG TERM LAB WORK June 27 2:00am LONG TERM LAB WORK July 01, 2024 4: 00am LABWORK July 08, 2024 5:0 0am LONG TERM LAB WORK July 15, 2024 5 :00am LONG TERM LAB WORK July 16, 2024 4 :00am Chief Complaint Admit Date LABWORK April 15, 2024 5:00am LABWORK April 22, 2024 5:00am LONG TERM LAB WORK April 29 5:00am LABWORK May 06, 2024 5: 00am LONG TERM LAB WORK May 13, 2024 4:00am LABWORK May 20, 2024 5 :00am LONG TERM LAB WORK May 27, 2024 5:00am LABWORK June 03, 2024 5 :00am LABWORK June 07, 2024 5 :00am LONG TERM LAB WORK June 10 5:00am LABWORK June 17, 2024 5:00am LONG TERM LAB WORK June 24 5:00am LONG TERM LAB WORK June 27 2:00am LONG TERM LAB WORK July 01, 2024 4: 00am LABWORK July 08, 2024 5:0 0am LONG TERM LAB WORK July 15, 2024 5 :00am LONG TERM LAB WORK July 16, 2024 4 :00am LONG TERM LAB WORK July 22, 2024 5 :00am Chief Complaint Admit Date LABWORK April 22, 2024 5:00am LONG TERM LAB WORK April 29 5:00am LABWORK May 06, 2024 5: 00am LONG TERM LAB WORK May 13, 2024 4:00am LABWORK May 20, 2024 5 :00am LONG TERM LAB WORK May 27, 2024 5:00am LABWORK June 03, 2024 5 :00am LABWORK June 07, 2024 5 :00am LONG TERM LAB WORK June 10 5:00am LABWORK June 17, 2024 5:00am LONG TERM LAB WORK June 24 5:00am LONG TERM LAB WORK June 27 2:00am LONG TERM LAB WORK July 01, 2024 4: 00am LABWORK July 08, 2024 5:0 0am LONG TERM LAB WORK July 15, 2024 5 :00am LONG TERM LAB WORK July 16, 2024 4 :00am LONG TERM LAB WORK July 22, 2024 5 :00am LABWORK July 29, 2024 5:0 0am Chief Complaint Admit Date LONG TERM LAB WORK May 13, 2024 4:00am LABWORK May 20, 2024 5 :00am LONG TERM LAB WORK May 27, 2024 5:00am LABWORK June 03, 2024 5 :00am LABWORK June 07, 2024 5 :00am LONG TERM LAB WORK June 10 5:00am LABWORK June 17, 2024 5:00am LONG TERM LAB WORK June 24 5:00am LONG TERM LAB WORK June 27 2:00am LONG TERM LAB WORK July 01, 2024 4: 00am LABWORK July 08, 2024 5:0 0am LONG TERM LAB WORK July 15, 2024 5 :00am LONG TERM LAB WORK July 16, 2024 4 :00am LONG TERM LAB WORK July 22, 2024 5 :00am LABWORK July 29, 2024 5:0 0am LONG TERM LAB WORK August 05, 2024 5: 00am LONG TERM LAB WORK August 12, 2024 5 :00am Chief Complaint Admit Date LABWORK May 20, 2024 5 :00am LONG TERM LAB WORK May 27, 2024 5:00am LABWORK June 03, 2024 5 :00am LABWORK June 07, 2024 5 :00am LONG TERM LAB WORK June 10 5:00am LABWORK June 17, 2024 5:00am LONG TERM LAB WORK June 24 5:00am LONG TERM LAB WORK June 27 2:00am LONG TERM LAB WORK July 01, 2024 4: 00am LABWORK July 08, 2024 5:0 0am LONG TERM LAB WORK July 15, 2024 5 :00am LONG TERM LAB WORK July 16, 2024 4 :00am LONG TERM LAB WORK July 22, 2024 5 :00am LABWORK July 29, 2024 5:0 0am LONG TERM LAB WORK August 05, 2024 5: 00am LONG TERM LAB WORK August 12, 2024 5 :00am LABWORK August 26, 2024 5:0 0am Chief Complaint Admit Date LABWORK June 03, 2024 5 :00am LABWORK June 07, 2024 5 :00am LONG TERM LAB WORK June 10 5:00am LABWORK June 17, 2024 5:00am LONG TERM LAB WORK June 24 5:00am LONG TERM LAB WORK June 27 2:00am LONG TERM LAB WORK July 01, 2024 4: 00am LABWORK July 08, 2024 5:0 0am LONG TERM LAB WORK July 15, 2024 5 :00am LONG TERM LAB WORK July 16, 2024 4 :00am LONG TERM LAB WORK July 22, 2024 5 :00am LABWORK July 29, 2024 5:0 0am LONG TERM LAB WORK August 05, 2024 5: 00am LONG TERM LAB WORK August 12, 2024 5 :00am LONG TERM LAB WORK August 19, 2024 4 :00am LONG TERM LAB WORK August 23, 2024 5 :00am LABWORK August 26, 2024 5:0 0am LABWORK September 09, 2024 5:00a m Chief Complaint Admit Date LABWORK June 07, 2024 5 :00am LONG TERM LAB WORK June 10 5:00am LABWORK June 17, 2024 5:00am LONG TERM LAB WORK June 24 5:00am LONG TERM LAB WORK June 27 2:00am LONG TERM LAB WORK July 01, 2024 4: 00am LABWORK July 08, 2024 5:0 0am LONG TERM LAB WORK July 15, 2024 5 :00am LONG TERM LAB WORK July 16, 2024 4 :00am LONG TERM LAB WORK July 22, 2024 5 :00am LABWORK July 29, 2024 5:0 0am LONG TERM LAB WORK August 05, 2024 5: 00am LONG TERM LAB WORK August 12, 2024 5 :00am LONG TERM LAB WORK August 19, 2024 4 :00am LONG TERM LAB WORK August 23, 2024 5 :00am LABWORK August 26, 2024 5:0 0am LONG TERM LAB WORK September 02, 2024 4:00 am LABWORK September 09, 2024 5:00a m LABWORK September 11, 2024 5:00a m Chief Complaint Admit Date LONG TERM LAB WORK July 01, 2024 4: 00am LABWORK July 08, 2024 5:0 0am LONG TERM LAB WORK July 15, 2024 5 :00am LONG TERM LAB WORK July 16, 2024 4 :00am LONG TERM LAB WORK July 22, 2024 5 :00am LABWORK July 29, 2024 5:0 0am LONG TERM LAB WORK August 05, 2024 5: 00am LONG TERM LAB WORK August 12, 2024 5 :00am LONG TERM LAB WORK August 19, 2024 4 :00am LONG TERM LAB WORK August 23, 2024 5 :00am LABWORK August 26, 2024 5:0 0am LONG TERM LAB WORK September 02, 2024 4:00 am LABWORK September 09, 2024 5:00a m LABWORK September 11, 2024 5:00a m LONG TERM LAB WORK September 16, 2024 5:0 0am LONG TERM LAB WORK September 24, 2024 4:0 0am Chief Complaint Admit Date LONG TERM LAB WORK August 05, 2024 5: 00am LONG TERM LAB WORK August 12, 2024 5 :00am LONG TERM LAB WORK August 19, 2024 4 :00am LONG TERM LAB WORK August 23, 2024 5 :00am LABWORK August 26, 2024 5:0 0am LONG TERM LAB WORK September 02, 2024 4:00 am LABWORK September 09, 2024 5:00a m LABWORK September 11, 2024 5:00a m LONG TERM LAB WORK September 16, 2024 5:0 0am LONG TERM LAB WORK September 24, 2024 4:0 0am LABWORK September 30, 2024 5:00a m LABWORK October 07, 2024 5:00a m LONG TERM LAB WORK October 14, 2024 4: 00am LONG TERM LAB WORK October 21, 2024 4: 00am LABWORK October 28, 2024 5:00 am LONG TERM LAB WORK November 04, 2024 4:0 0am LONG TERM LAB WORK November 11, 2024 5: 00am Additional Source Comments (unrecognized sect ion and [...] SHS DATE CREATED AUTHOR AUTHOR'S ORGANIZ ATION 12/22/2024 [facility] Source Comments (unrecognize d section and content) In the event this informatio n is protected by the Federal Confidentiality of Alcohol and Drug Abuse Patient Records regulations: The Federal rules restrict any use of the information to criminally investigate or prosecute any alcohol or drug abuse patient.[facility] Reason for Visit (unrecogniz ed section and content) Reason Comments Feeding Tube Problem PEG tube problem Reason For Visit Description Start Date New - visit with practice Preliminary reason f or [...] Solorio RN) 2148 (Given - Provider: Nancy Solorio, KUSHAL) 2100 (Due) cefepime (MAXIPIME) 2000 mg IVPB [...] Francesca Cortez RN)1050 (Stopped - Provider: Tra Pearl, KUSHAL)1458 (New Bag - Provider: Tra Pearl, KUSHAL)2207 (Stopped - Provider: Nancy Solorio, KUSHAL)2244 (New Bag - Provider: Nancy Solorio RN) [...] (Given - Provider: Sandeep Thompson, KUSHAL)2100 (Due) docusate (COLACE) 50 MG/5ML liquid 100 mg 100 mg, Per NG tube, 2 TIMES DAILY, First dose on Mon03/19/21 at 2323 0754 (Given - Provider: Tra Pearl RN)2205 (Given - Provider: Nancy Solorio RN) 0921 (Given - Provider: Jovana Armstrong KUSHAL)2149 (Given - Provider: Nancy Solorio, RN) 0914 (Given - Provider: Sandeep Thompson, RN)2100 (Due) enoxaparin (LOVENOX) injection 30 mg 30 mg, SubCUTAneous, 2 TIMES DAILY, First dose on Mon03/19/21 at 2323, Pharmacy to dose if renal insufficiency present. 0753 (Given - Provider: Tra Pearl RN)2207 (Given - Provider: Nancy Solorio, KUSHAL) 0940 (Given - Provider: Jovana Armstrong, KUSHAL)2149 (Given - Provider: Nancy Solorio, RN) 0914 (Given - Provider: Sandeep Thompson, RN)2100 (Due) finasteride (PROSCAR) tablet 5 mg [...] 1200 0953 (Given - Provider: Amelie Taylor DIRECTOR OF PRODUCT MANAGEMENT)1356 (Given - Provider: Amelie Taylor DIRECTOR OF PRODUCT MANAGEMENT)1648 (Given - Provider: Amelie Taylor RCP)2212 (Given - Provider: Claire Lagos RCP) 0841 (Given - Provider: Ana Cabrera DIRECTOR OF PRODUCT MANAGEMENT)1213 (Given - Provider: Ana Cabrera RCP)1622 (Given - Provider: Ana Cabrera RCP)2037 (Given - Provider: Perla Loyola DIRECTOR OF PRODUCT MANAGEMENT) 1020 (Given - Provider: Gabriel Soares DIRECTOR OF PRODUCT MANAGEMENT)1200 (Due)1600 (Due)2000 (Due) lansoprazole (PREVACID SOLUTAB) disintegrating tablet 30 mg 30 mg, PEG Tube, DAILY BEFORE BREAKFAST, First dose on 03/21/21 at 0700, Do not crush or break. 0754 (Given - Provider: Tra Pearl, KUSHAL) 0639 (Given - Provider: Nancy Solorio, KUSHAL) 0641 (Given - Provider: Nancy Solorio RN) methylPREDNISolone sodium (SOLU-MEDROL) injection 40 mg (CANCELED) 40 mg, IntraVENous, EVERY 12 HOURS, First dose (after last modification) on Mon03/21/21 at 1445 0137 (Given - Provider: Francesca Cortez RN)1458 (Given - Provider: Tra Pearl RN) 0405 (Given - Provider: Nancy Solorio, KUSHAL)1448 (Given - Provider: Jovana Armstrong RN) 0245 [...] Solorio, KUSHAL) 1055 (Given - Provider: Jovana Armstrong, KUSHAL)2150 (Given - Provider: Nancy Solorio, RN) 0918 [...] Pearl RN) 1055 (Given - Provider: Jovana Armstrong, KUSHAL) [...] Status Dates Renard Burgos Attending Provider Active [employer] Worker Relationship Specialty Start Date End Date Renard Burgos [address] [place] [id number] PCP - General Internal Medicine 10/16/23 [employer] Worker Relationship Specialty Start Date End Date Renard Burgos [address] [place] [phone] PCP - General Internal Medicine 10/16/23 [employer] Worker Relationship Specialty Start Date End Date Renard Burgos [address] [place] [id number] PCP - General Internal Medicine 10/16/23 [employer] Worker Relationship Specialty Start Date End Date Renard Burgos [address] [place] [phone] PCP - General Internal Medicine 10/16/23 Team [...] Team Status: Inactive Member Role Status Dates eRnard GARLAND Attending Provider Active Sta rt: June [...] Provider Active Sta rt: September 09, 2024 [employer] Worker Relationship Specialty Start Date End Date Renard Burgos [address] [facility] [address] [place] [phone] PCP - General Internal Medicine 10/16/23 Team [...] Team Status: Inactive Member Role Status Dates Reanrd GARLAND Attending Provider Active Sta rt: September [...] Provider Active Sta rt: October 21, 2024 Team Status: Inactive Member Role/Relationship Status [...] Provider Active Sta rt: October 14, 2024 Renard GARLAND Referring Provider Active Sta rt: October 14, 2024 Team Status: Inactive Member Role/Relationship Status Dates Renard GARLAND Attending Provider Active Sta rt: October 21, 2024 End: October 21, 2024 Renard GARLAND Referring Provider Active Sta rt: October 21, 2024 End: October 21, 2024 Team Status: Active Member Role/Relationship Status Dates Renard GARLAND Attending Provider Active Sta rt: October 28, 2024 Team Status: Active Member Role/Relationship Status Dates Renard GARLAND Attending Provider Active Sta rt: November 04, 2024 Renard GARLAND Referring Provider Active Sta rt: November 04, 2024 Team Status: Active Member Role/Relationship Status Dates Renard GARLAND Attending Provider Active Sta rt: November 11, 2024 Team Status: Active Member Role/Relationship Status Dates Renard GARLAND Attending Provider Active Sta rt: November 18, 2024 Team Status: Active Member Role/Relationship Status Dates Renard GARLAND Attending Provider Active Sta rt: November 25, 2024 Team Status: Inactive Member Role/Relationship Status Dates Renard GARLAND Attending Provider Active Sta rt: September 24, 2024 End: September 24, 2024 Renard GARLAND Referring Provider Active Sta rt: September 24, 2024 End: September 24, 2024 FOR RECORDS PERTAINING TO PATIENTS WHO [...] BE BASED ON THE PRIMARY CLINICAL RECORDS. [facility] [employer] provides no warranty or guarantee of the accuracy or completeness of information in this document.
[2024-12-23 08:46] LABS: Hematocrit 39.9 % (40-54); Hemoglobin 13.4 g/dL (13.0-16.5); Immature Granulocytes Count 0.020 X10^3/uL (0.0-0.0); Mean Corp Hgb Conc 33.6 g/dL (32-36); Mean Corpuscular Volume 91.9 fL (80-94); Mean Platelet Vol. 11.7 fl (6.2-12.0); NRBC Flagged by Analyzer 0 % (0-5); Platelet Count 201 K/mm3 (150-450); RBC Distribution Width CV 13.0 % (11.6-14.6); RBC Distribution Width SD 43.4 fl (35.1-43.9); Red Blood Count 4.34 M/mm3 (4.6-6.2); White Blood Count 6.8 K/mm3 (4.4-11.0)
== END | disposition home or self-care (01) ==
LOC: OLS.SANC 05:00
PROVIDERS: Visit Provider Internal Medicine
DX: F20.9 Schizophrenia, unspecified (principal); Z79.899 Other long term (current) drug therapy
CPT/HCPCS: 36415; 85025

== ENCOUNTER → 2024-12-31 | Outpatient (REF) | payer MEDICAID, SELFPAY ==
--- OUTSIDE RECORDS SUMMARY | 2024-12-31 04:18 | XMS RPT_ITS | CCD ---
Author Organization [facility] Care Team Providers Care Sort Line Worker Name Role Phone JORDAN OREILLY Attending Unavailable PROVIDER, UNKNOWN Referring Unavailable Nathanael Cazares Primary Care Unavailable PROVIDER, UNKNOWN Referring Unavailable Nathanael Cazares Primary Care Unavailable Jaime Lindquist Attending Unavailable Unavailable Primary Care Provider UnavailBethany Navarrete Primary Care Provider Jarvis Kendall MD Unavailable [phone] Bethany Russell MD Primary Care Provider Unavailable [...] Attending Unavailable Katsaros OLS, Renard Attending Unavailable Renard Jackson Referring Unavailable Loretta GARLAND, Renard Attending Unavailable Loretta GARLAND, Renard Attending Unavailable Loretta GARLAND, Renard Attending Unavailable Renard Jackson Referring Unavailable Loretta GARLAND, Renard Attending Unavailable Renard [...] tablet via peg tube as needed ACETAMINOPHEN [id number] Ana Stevenson HOME CHILD CARE PROVIDER albuterol 0.83 mg/ml inhalation solution (1 source) beta2-Adrenergic Agonist Start: 03-19-2021 albut veronica (PROVENTIL) nebulizer solution 2.5 mg albuterol 0.833 mg/ml / ipratropium bromide 0.167 mg/ml inhalation solution (18 sources) Anticholinergic, beta2-Adrenergic Agonist Start: 03-20-2021 ipratropium-alb utero l (DUONEB) nebulizer solution 1 ampule Start: 05-22-2019 IPRATROPIUM-AL BUTEROL 0.5-2.5 (3) MG/3ML SOLN 3ml via nebulizer every 4 hours as needed IPRATROPIUM-ALBUTEROL [id number] Ana Stevenson HOME CHILD CARE PROVIDER Start: 08-22-2018 take 3 mL by inhalat ion every four hours ipratropium-albuterol (DUONEB) 0.5-2.5 (3) MG/3ML SOLN nebulizer solution Inhale 3 mLs into the lungs every 4 hours 360 mL 0 08/22/2018 Active aspirin 81 mg chewable tablet (9 sources) Platelet Aggregation Inhibitor, Nonsteroidal Anti-inflammatory Drug Start: 05-22-2019 ASPIRIN ADULT LOW STRENGTH 81 MG CHEW one tablet via peg tube daily ASPIRIN [id number] Ana Stevenson HOME CHILD CARE PROVIDER Start: 08-23-2018 aspirin 81 MG chewable tablet 1 tablet by Per NG tube route daily 30 tablet 3 08/23/2018 Active atorvastatin 40 mg oral tablet (9 sources) HMG-CoA Reductase Inhibitor Start: 05-22-2019 ATORVASTATIN CALCIUM 40 MG TABS one tablet via peg tube daily ATORVASTATIN CALCIUM [id number] Ana [facility] Start: 08-22-2018 atorvastatin ( LIPITOR) 40 MG tablet 1 tablet by Per NG tube route nightly 30 tablet 3 08/22/2018 Active castor oil 0.788 mg/mg / zambian balsam 0.087 mg/mg topical ointment (7 sources) Standardized Chemical Allergen Start: 08-22-2018 Balsam [place] O il (VENELEX) OINT ointment Apply topically [...] 250mg via peg tube twice daily CLOZAPINE [id number] [facility] Start: 08-22-2018 cloZAPine (AILYN ZARIL) 100 [...] via peg tube twice daily DOCUSATE SODIUM [id number] Ana Stevenson [facility] Start: 08-22-2018 docusate (COLA CE) 50 MG/5ML liquid 10 mLs by Per NG tube route 2 times daily 0 08/22/2018 Active take 1 capsule by mo [facility] twice daily docusate sodium (Colace) 100 [...] one tablet via peg tube nightly MELATONIN [id number] Ana Stevenson [facility] Start: 08-22-2018 melatonin 3 MG TABS tablet [...] needed. 0 08/23/2018 Active polyethylene glycol 3350 52882 mg powder for oral solution (1 source) [...] Sig (Normalized) Sig (Original) barium sulfate (Varibar [place], Varibar Honey) 40 % suspension 5 mL [...] SUPP every 24 hours as needed BISACODYL [id number] Ana Diesch HOME CHILD CARE PROVIDER Start: 05-22-2019 BISACODYL EC 5 MG TBEC one tablet via peg tube daily as needed BISACODYL [id number] Ana Diesch HOME CHILD CARE PROVIDER chlorhexidine gluconate 1.2 mg/ml mouthwash (10 sources) Start: 05-22-2019 PERIDEX 0.12 % SOLN 15ml twice daily CHLORHEXIDINE GLUCONATE [id number] Ana Diesch HOME CHILD CARE PROVIDER chlorhexidine (P eridex) 0.12 % solution Use 15 mL in the mouth or throat if needed for wound care. Active cholecalciferol 1000 unt oral tablet (16 sources) Vitamin D Start: 05-22-2019 VITAMIN D3 25 MCG (1000 UT) TABS one tablet via peg tube daily CHOLECALCIFEROL [id number] Ana Stevenson LPN cholecalciferol (SM Vitamin D3) 25 MCG (1000 UT) tablet Take 1,000 Units by mouth daily. Active dextromethorphan hydrobromide 2 mg/ml / guaiFENesin 20 mg/ml oral solution (1 source) Uncompetitive G-svhxnt-O-aspartate Receptor Antagonist, Sigma-1 Agonist Start: 05-22-2019 ROBITUSSIN PEAK COLD DM SYRP 5ml via peg tube every 4 hours as needed for cough DEXTROMETHORPHAN-GUAIFENESIN SYRP [id number] Ana Stevenson LPN magnesium hydroxide 240 mg/ml oral suspension (1 source) Start: 05-22-2019 MILK OF MAGNESIA CONCENTRATE SUSP 30ml via peg tube every 24 hours MAGNESIUM HYDROXIDE SUSP [id number] Ana Stevenson LPN methylPREDNISolone 40 mg injection (2 sources) Corticosteroid Start: 03-20-2021 End: 03-24-2021 methylPREDNISolone sodium (SOLU-MEDROL) injection 40 mg MULTIPLE VITAMINS-MINERALS (1 source) Start: 05-22-2019 MENS MULTIVITAMIN TABS one tablet via peg tube daily MULTIPLE VITAMINS-MINERALS [id number] Ana Stevenson LPN POLYETHYLENE GLYCOL 1450 (1 source) Start: 05-22-2019 POLYETHYLENE GLYCOL 1450 POW D 17 grams via peg tube twice daily POLYETHYLENE GLYCOL 1450 [id number] Ana Stevenson LPN SENNOSIDES-DOCUSATE SODIUM (1 source) Start: 05-22-2019 SENNA PLUS 8.6-50 MG TABS on e tablet via peg tube daily SENNOSIDES-DOCUSATE SODIUM [id number] Ana Stevenson LPN 50 ml sodium chloride [...] Onset: 9 07-11-2018 Other aftercare (2 sources) 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 (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; Translations: [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 (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] Onset: 9 Episodic Other aftercare (2 sources) 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; Translations: [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] Onset: 5 Episodic Other [...] 9 07-23-2018 Episodic Other aftercare (1 source) 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 (current) use of antibiotics; Translations: [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 (current) use of antibiotics] Onset: 5 Episodic Other aftercare (1 source) correction (current) use of 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; Translations: [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 (current) use of 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] Onset: 5 Episodic [...] Interpretation Reference Range Facility CBC W/Diff, Automatedon 11-30 Absolute Lymph 1.98 X10 3/uL Normal 0.83-4.51 [facility] Comment on above: Order Comment: 109-1 Performed By: #### L 100.0100 ####[facility] [address] [place], [address] Absolute Neut 4.2 X10 3/uL Normal 2.0-7.7 [facility] Comment on above: Order Comment: 109-1 Performed By: #### L 100.0100 ####[facility] [address] [place], [address] Basophils/100 WBC (Bld) 0.6 % Normal 0-1 [facility] Comment on above: Order Comment: 109-1 Performed By: #### L 100.0100 ####[facility] [address] [place], [address] Eosinophils/100 WBC (Bld) 0.9 % Normal 0-5 [facility] Comment on above: Order Comment: 109-1 Performed By: #### L 100.0100 ####[facility] [address] [place], [address] Erythrocyte distribution width (RBC) [Ratio] 13.0 % Normal 11.6-14.6 [facility] Comment on above: Order Comment: 109-1 Performed By: #### L 100.0100 ####[facility] [address] [place], [address] Hematocrit (Bld) [Volume fraction] 39.9 % Low 40-54 [facility] Comment on above: Order Comment: 109-1 Performed By: #### L 100.0100 ####[facility] [address] [place], [address] Hemoglobin (Bld) [Mass/Vol] 13.4 g/dL Normal 13.0-16.5 [facility] Comment on above: Order Comment: 109-1 Performed By: #### L 100.0100 ####[facility] [address] [place], [address] IG% 0.300 Normal 0.0-0.9 [facility] Comment on above: Order Comment: 109-1 Result Comment: IG% - Immature Granulocytes (promyelocytes, myelocytes andmetamyelocytes) > 1% indicates that a LEFT SHIFT is Present. Performed By: #### L 100.0100 ####[facility] [address] [place], [address] Lymphocytes/100 WBC (Bld) 28.9 % Normal 19-41 [facility] Comment on above: Order Comment: 109-1 Performed By: #### L 100.0100 ####[facility] [address] [place], [address] MCH (RBC) [Entitic mass] 30.9 pg Normal 27.0-32.0 [facility] Comment on above: Order Comment: 109-1 Performed By: #### L 100.0100 ####[facility] [address] [place], [address] MCHC (RBC) [Mass/Vol] 33.6 g/dL Normal 32-36 [facility] Comment on above: Order Comment: 109-1 Performed By: #### L 100.0100 ####[facility] [address] [place], [address] MCV (RBC) [Entitic vol] 91.9 fL Normal 80-94 [facility] Comment on above: Order Comment: 109-1 Performed By: #### L 100.0100 ####[facility] [address] [place], [address] Monocytes/100 WBC (Bld) 8.0 % Normal 0-10 [facility] Comment on above: Order Comment: 109-1 Performed By: #### L 100.0100 ####[facility] [address] [place], [address] Neutrophils/100 WBC (Bld) 61.3 % Normal 47-70 [facility] Comment on above: Order Comment: 109-1 Performed By: #### L 100.0100 ####[facility] [address] [place], [address] Nucleated RBC (Bld) [#/Vol] 0 10*3/uL Normal 0-5 [facility] Comment on above: Order Comment: 109-1 Performed By: #### L 100.0100 ####[facility] [address] [place], [address] Platelet mean volume (Bld) [Entitic vol] 11.7 fL Normal 6.2-12.0 [facility] Comment on above: Order Comment: 109-1 Performed By: #### L 100.0100 ####[facility] [address] [place], [address] Platelets (Bld) [#/Vol] 201 10*3/uL Normal 150-450 [facility] Comment on above: Order Comment: 109-1 Performed By: #### L 100.0100 ####[facility] [address] [place], [address] RBC (Bld) [#/Vol] 4.34 10*6/uL Low 4.6-6.2 [facility] Comment on above: Order Comment: 109-1 Performed By: #### L 100.0100 ####[facility] [address] [place], [address] RDW SD 43.4 fl Normal 35.1-43.9 [facility] Comment on above: Order Comment: 109-1 Performed By: #### L 100.0100 ####[facility] [address] [place], [address] WBC (Bld) [#/Vol] 6.8 10*3/uL Normal 4.4-11.0 [facility] Comment on above: Order Comment: 109-1 Performed By: #### L 100.0100 ####[facility] [address] [place], [address] CBC W/Diff, Automatedon 08- Absolute Lymph 2.15 X10 3/uL Normal 0.83-4.51 [facility] Comment on above: Order Comment: 109.1 Performed By: #### L 100.0100 ####[facility] [address] [place], [address] Absolute Neut 4.1 X10 3/uL Normal 2.0-7.7 [facility] Comment on above: Order Comment: 109.1 Performed By: #### L 100.0100 ####[facility] [address] [place], [address] Basophils/100 WBC (Bld) 0.7 % Normal 0-1 [facility] Comment on above: Order Comment: 109.1 Performed By: #### L 100.0100 ####[facility] [address] [place], [address] Eosinophils/100 WBC (Bld) 0.9 % Normal 0-5 [facility] Comment on above: Order Comment: 109.1 Performed By: #### L 100.0100 ####[facility] [address] [place], [address] Erythrocyte distribution width (RBC) [Ratio] 13.2 % Normal 11.6-14.6 [facility] Comment on above: Order Comment: 109.1 Performed By: #### L 100.0100 ####[facility] [address] [place], [address] Hematocrit (Bld) [Volume fraction] 38.7 % Low 40-54 [facility] Comment on above: Order Comment: 109.1 Performed By: #### L 100.0100 ####[facility] [address] [place], [address] Hemoglobin (Bld) [Mass/Vol] 12.8 g/dL Low 13.0-16.5 [facility] Comment on above: Order Comment: 109.1 Performed By: #### L 100.0100 ####[facility] [address] [place], [address] IG% 0.300 Normal 0.0-0.9 [facility] Comment on above: Order Comment: 109.1 Result Comment: IG% - Immature Granulocytes (promyelocytes, myelocytes andmetamyelocytes) > 1% indicates that a LEFT SHIFT is Present. Performed By: #### L 100.0100 ####[facility] [address] [place], [address] Lymphocytes/100 WBC (Bld) 30.7 % Normal 19-41 [facility] Comment on above: Order Comment: 109.1 Performed By: #### L 100.0100 ####[facility] [address] [place], [address] MCH (RBC) [Entitic mass] 30.3 pg Normal 27.0-32.0 [facility] Comment on above: Order Comment: 109.1 Performed By: #### L 100.0100 ####[facility] [address] [place], [address] MCHC (RBC) [Mass/Vol] 33.1 g/dL Normal 32-36 [facility] Comment on above: Order Comment: 109.1 Performed By: #### L 100.0100 ####[facility] [address] [place], [address] MCV (RBC) [Entitic vol] 91.7 fL Normal 80-94 [facility] Comment on above: Order Comment: 109.1 Performed By: #### L 100.0100 ####[facility] [address] [place], [address] Monocytes/100 WBC (Bld) 8.6 % Normal 0-10 [facility] Comment on above: Order Comment: 109.1 Performed By: #### L 100.0100 ####[facility] [address] [place], [address] Neutrophils/100 WBC (Bld) 58.8 % Normal 47-70 [facility] Comment on above: Order Comment: 109.1 Performed By: #### L 100.0100 ####[facility] [address] [place], [address] Nucleated RBC (Bld) [#/Vol] 0 10*3/uL Normal 0-5 [facility] Comment on above: Order Comment: 109.1 Performed By: #### L 100.0100 ####[facility] [address] [place], [address] Platelet mean volume (Bld) [Entitic vol] 11.3 fL Normal 6.2-12.0 [facility] Comment on above: Order Comment: 109.1 Performed By: #### L 100.0100 ####[facility] [address] [place], [address] Platelets (Bld) [#/Vol] 202 10*3/uL Normal 150-450 [facility] Comment on above: Order Comment: 109.1 Performed By: #### L 100.0100 ####[facility] [address] [place], [address] RBC (Bld) [#/Vol] 4.22 10*6/uL Low 4.6-6.2 [facility] Comment on above: Order Comment: 109.1 Performed By: #### L 100.0100 ####[facility] [address] [place], [address] RDW SD 44.4 fl High 35.1-43.9 [facility] Comment on above: Order Comment: 109.1 Performed By: #### L 100.0100 ####[facility] [address] [place], [address] WBC (Bld) [#/Vol] 7.0 10*3/uL Normal 4.4-11.0 [facility] Comment on above: Order Comment: 109.1 Performed By: #### L 100.0100 ####[facility] [address] [place], [address] CBC W/Diff, Automatedon 08- Absolute Lymph 2.30 X10 3/uL Normal 0.83-4.51 [facility] Comment on above: Order Comment: 109.1 Performed By: #### L 100.0100 ####[facility] [address] [place], [address] Absolute Neut 4.8 X10 3/uL Normal 2.0-7.7 [facility] Comment on above: Order Comment: 109.1 Performed By: #### L 100.0100 ####[facility] [address] [place], [address] Basophils/100 WBC (Bld) 0.5 % Normal 0-1 [facility] Comment on above: Order Comment: 109.1 Performed By: #### L 100.0100 ####[facility] [address] [place], [address] Eosinophils/100 WBC (Bld) 1.0 % Normal 0-5 [facility] Comment on above: Order Comment: 109.1 Performed By: #### L 100.0100 ####[facility] [address] [place], [address] Erythrocyte distribution width (RBC) [Ratio] 13.0 % Normal 11.6-14.6 [facility] Comment on above: Order Comment: 109.1 Performed By: #### L 100.0100 ####[facility] [address] [place], [address] Hematocrit (Bld) [Volume fraction] 40.3 % Normal 40-54 [facility] Comment on above: Order Comment: 109.1 Performed By: #### L 100.0100 ####[facility] [address] [place], [address] Hemoglobin (Bld) [Mass/Vol] 12.8 g/dL Low 13.0-16.5 [facility] Comment on above: Order Comment: 109.1 Performed By: #### L 100.0100 ####[facility] [address] [place], [address] IG% 0.400 Normal 0.0-0.9 [facility] Comment on above: Order Comment: 109.1 Result Comment: IG% - Immature Granulocytes (promyelocytes, myelocytes andmetamyelocytes) > 1% indicates that a LEFT SHIFT is Present. Performed By: #### L 100.0100 ####[facility] [address] [place], [address] Lymphocytes/100 WBC (Bld) 29.2 % Normal 19-41 [facility] Comment on above: Order Comment: 109.1 Performed By: #### L 100.0100 ####[facility] [address] [place], [address] MCH (RBC) [Entitic mass] 29.6 pg Normal 27.0-32.0 [facility] Comment on above: Order Comment: 109.1 Performed By: #### L 100.0100 ####[facility] [address] [place], [address] MCHC (RBC) [Mass/Vol] 31.8 g/dL Low 32-36 [facility] Comment on above: Order Comment: 109.1 Performed By: #### L 100.0100 ####[facility] [address] [place], [address] MCV (RBC) [Entitic vol] 93.1 fL Normal 80-94 [facility] Comment on above: Order Comment: 109.1 Performed By: #### L 100.0100 ####[facility] [address] [place], [address] Monocytes/100 WBC (Bld) 7.7 % Normal 0-10 [facility] Comment on above: Order Comment: 109.1 Performed By: #### L 100.0100 ####[facility] [address] [place], [address] Neutrophils/100 WBC (Bld) 61.2 % Normal 47-70 [facility] Comment on above: Order Comment: 109.1 Performed By: #### L 100.0100 ####[facility] [address] [place], [address] Nucleated RBC (Bld) [#/Vol] 0 10*3/uL Normal 0-5 [facility] Comment on above: Order Comment: 109.1 Performed By: #### L 100.0100 ####[facility] [address] [place], [address] Platelet mean volume (Bld) [Entitic vol] 11.5 fL Normal 6.2-12.0 [facility] Comment on above: Order Comment: 109.1 Performed By: #### L 100.0100 ####[facility] [address] [place], [address] Platelets (Bld) [#/Vol] 194 10*3/uL Normal 150-450 [facility] Comment on above: Order Comment: 109.1 Performed By: #### L 100.0100 ####[facility] [address] [place], [address] RBC (Bld) [#/Vol] 4.33 10*6/uL Low 4.6-6.2 [facility] Comment on above: Order Comment: 109.1 Performed By: #### L 100.0100 ####[facility] [address] [place], [address] RDW SD 44.3 fl High 35.1-43.9 [facility] Comment on above: Order Comment: 109.1 Performed By: #### L 100.0100 ####[facility] [address] [place], [address] WBC (Bld) [#/Vol] 7.9 10*3/uL Normal 4.4-11.0 [facility] Comment on above: Order Comment: 109.1 Performed By: #### L 100.0100 ####[facility] [address] [place], [address] CBC W/Diff, Automatedon 08-0 4-5 Absolute Lymph 2.83 X10 3/uL Normal 0.83-4.51 [facility] Comment on above: Order Comment: 109.1 Performed By: #### L 100.0100 ####[facility] [address] [place], [address] Absolute Neut 4.7 X10 3/uL Normal 2.0-7.7 [facility] Comment on above: Order Comment: 109.1 Performed By: #### L 100.0100 ####[facility] [address] [place], [address] Basophils/100 WBC (Bld) 0.8 % Normal 0-1 [facility] Comment on above: Order Comment: 109.1 Performed By: #### L 100.0100 ####[facility] [address] [place], [address] Eosinophils/100 WBC (Bld) 0.9 % Normal 0-5 [facility] Comment on above: Order Comment: 109.1 Performed By: #### L 100.0100 ####[facility] [address] [place], [address] Erythrocyte distribution width (RBC) [Ratio] 13.2 % Normal 11.6-14.6 [facility] Comment on above: Order Comment: 109.1 Performed By: #### L 100.0100 ####[facility] [address] [place], [address] Hematocrit (Bld) [Volume fraction] 41.4 % Normal 40-54 [facility] Comment on above: Order Comment: 109.1 Performed By: #### L 100.0100 ####[facility] [address] [place], [address] Hemoglobin (Bld) [Mass/Vol] 13.2 g/dL Normal 13.0-16.5 [facility] Comment on above: Order Comment: 109.1 Performed By: #### L 100.0100 ####[facility] [address] [place], [address] IG% 0.300 Normal 0.0-0.9 [facility] Comment on above: Order Comment: 109.1 Result Comment: IG% - Immature Granulocytes (promyelocytes, myelocytes andmetamyelocytes) > 1% indicates that a LEFT SHIFT is Present. Performed By: #### L 100.0100 ####[facility] [address] [place], [address] Lymphocytes/100 WBC (Bld) 31.3 % Normal 19-41 [facility] Comment on above: Order Comment: 109.1 Performed By: #### L 100.0100 ####[facility] [address] [place], [address] MCH (RBC) [Entitic mass] 30.1 pg Normal 27.0-32.0 [facility] Comment on above: Order Comment: 109.1 Performed By: #### L 100.0100 ####[facility] [address] [place], [address] MCHC (RBC) [Mass/Vol] 31.9 g/dL Low 32-36 [facility] Comment on above: Order Comment: 109.1 Performed By: #### L 100.0100 ####[facility] [address] [place], [address] MCV (RBC) [Entitic vol] 94.5 fL High 80-94 [facility] Comment on above: Order Comment: 109.1 Performed By: #### L 100.0100 ####[facility] [address] [place], [address] Monocytes/100 WBC (Bld) 14.8 % High 0-10 [facility] Comment on above: Order Comment: 109.1 Performed By: #### L 100.0100 ####[facility] [address] [place], [address] Neutrophils/100 WBC (Bld) 51.9 % Normal 47-70 [facility] Comment on above: Order Comment: 109.1 Performed By: #### L 100.0100 ####[facility] [address] [place], [address] Nucleated RBC (Bld) [#/Vol] 0 10*3/uL Normal 0-5 [facility] Comment on above: Order Comment: 109.1 Performed By: #### L 100.0100 ####[facility] [address] [place], [address] Platelet mean volume (Bld) [Entitic vol] 11.2 fL Normal 6.2-12.0 [facility] Comment on above: Order Comment: 109.1 Performed By: #### L 100.0100 ####[facility] [address] [place], [address] Platelets (Bld) [#/Vol] 182 10*3/uL Normal 150-450 [facility] Comment on above: Order Comment: 109.1 Performed By: #### L 100.0100 ####[facility] [address] [place], [address] RBC (Bld) [#/Vol] 4.38 10*6/uL Low 4.6-6.2 [facility] [facility] Comment on above: Order Comment: 109.1 Performed By: #### L 100.0100 ####[facility] [address] [place], [address] RDW SD 45.5 fl High 35.1-43.9 [facility] Comment on above: Order Comment: 109.1 Performed By: #### L 100.0100 ####[facility] [address] [place], [address] WBC (Bld) [#/Vol] 9.1 10*3/uL Normal 4.4-11.0 [facility] Comment on above: Order Comment: 109.1 Performed By: #### L 100.0100 ####[facility] [address] [place], [address] Absolute lymphocyte countOrd ered By: Renard Burgos on 11-25-2024 Lymphocytes Auto (Unsp spec) [#/Vol] 1.80 10*3/uL 0.83-4.51 [facility] Absolute neutrophil countOrd ered By: Renard Burgos on 11-25-2024 Neutrophils (Bld) [#/Vol] 7.6 10*3/uL 2.0-7.7 [facility] Automated blood erythrocyte countOrdered By: Renard Burgos on 11-25-2024 RBC (Bld) [#/Vol] 4.57 10*6/uL Low 4.6-6.2 [facility] Comment on above: Order Comment: 109-1 Performed By: #### L 100.0100 ####[facility] [address] [place], [place], [id number] Automated blood hematocrit ( percentage)Ordered By: Renard Burgos on 11-25-2024 Hematocrit (Bld) [Volume fraction] 42.1 % Normal 40-54 [facility] Comment on above: Order Comment: 109-1 Performed By: #### L 100.0100 ####[facility] [address] [place], [place], [phone] Automated lymphocyte count a s percentage of total leukocytesOrdered By: Renard Burgos on 11-25-2024 Lymphocytes/100 WBC Auto (Unsp spec) 17.3 % Low 19-41 [facility] Basophil percentageOrdered B y: Renard Burgos on 11-25-2024 Basophils/100 WBC (Bld) 0.4 % Normal 0-1 [facility] Comment on above: Order Comment: 109-1 Performed By: #### L 100.0100 ####[facility] [address] [place], [address] CBC W/Diff, Automatedon 07-2 -2024 Absolute Lymph 1.80 X10 3/uL Normal 0.83-4.51 [facility] Comment on above: Order Comment: 109-1 Performed By: #### L 100.0100 ####[facility] [address] [place], [address] Absolute Neut 7.6 X10 3/uL Normal 2.0-7.7 [facility] Comment on above: Order Comment: 109-1 Performed By: #### L 100.0100 ####[facility] [address] [place], [address] IG% 0.400 Normal 0.0-0.9 [facility] Comment on above: Order Comment: 109-1 Result Comment: IG% - Immature Granulocytes (promyelocytes, myelocytes andmetamyelocytes) > 1% indicates that a LEFT SHIFT is Present. Performed By: #### L 100.0100 ####[facility] [address] [place], [address] Lymphocytes/100 WBC (Bld) 17.3 % Low 19-41 [facility] Comment on above: Order Comment: 109-1 Performed By: #### L 100.0100 ####[facility] [address] [place], [address] Nucleated RBC (Bld) [#/Vol] 0 10*3/uL Normal 0-5 [facility] Comment on above: Order Comment: 109-1 Performed By: #### L 100.0100 ####[facility] [address] [place], [address] RDW SD 43.7 fl Normal 35.1-43.9 [facility] Comment on above: Order Comment: 109-1 Performed By: #### L 100.0100 ####[facility] [address] [place], [place], [address] Eosinophil percentageOrdered By: Renard Burgos on 11-25-2024 Eosinophils/100 WBC (Bld) 0.6 % Normal 0-5 [facility] Comment on above: Order Comment: 109-1 Performed By: #### L 100.0100 ####[facility] [address] [place], [place], [address] Erythrocyte distribution wid th ratioOrdered By: Renard Burgos on 11-25-2024 Erythrocyte distribution width (RBC) [Ratio] 12.9 % Normal 11.6-14.6 [facility] Comment on above: Order Comment: 109-1 Performed By: #### L 100.0100 ####[facility] [address] [place], [place], [phone] Erythrocyte distribution wid th standard deviationOrdered By: Renard Burgos on 11-25-2024 Erythrocyte distribution width (RBC) [Ratio] 43.7 fl 35.1-43.9 [facility] Hemoglobin measurementOrdere d By: Renard Burgos on 11-25-2024 Hemoglobin (Bld) [Mass/Vol] 13.8 g/dL Normal 13.0-16.5 [facility] Comment on above: Order Comment: 109-1 Performed By: #### L 100.0100 ####[facility] [address] [place], [place], [phone] Immature granulocytes/100 WB C Auto (Bld)Ordered By: Renard Burgos on 11-25-2024 Immature granulocytes/100 WBC (Bld) 0.400 % 0.0-0.9 [facility] Comment on above: IG% - Immature Granu locytes (promyelocytes, myelocytes and metamyelocytes) > 1% indicates that a LEFT SHIFT is Present. MCV (mean corpuscular volume ) determinationOrdered By: Renard Burgos on 11-25-2024 MCV (RBC) [Entitic vol] 92.1 fL Normal 80-94 [facility] Comment on above: Order Comment: 109-1 Performed By: #### L 100.0100 ####[facility] [address] [place], [address] Mean corpuscular hemoglobin (MCH) determinationOrdered By: Renard Burgos on 11-25-2024 MCH (RBC) [Entitic mass] 30.2 pg Normal 27.0-32.0 [facility] Comment on above: Order Comment: 109-1 Performed By: #### L 100.0100 ####[facility] [address] [place], [address] Mean corpuscular hemoglobin concentration (MCHC) determinationOrdered By: Renard Burgos on 11-25-2024 MCHC (RBC) [Mass/Vol] 32.8 g/dL Normal 32-36 [facility] Comment on above: Order Comment: 109-1 Performed By: #### L 100.0100 ####[facility] [address] [place], [address] Mean platelet volume determi nationOrdered By: Renard Burgos on 11-25-2024 Platelet mean volume (Bld) [Entitic vol] 11.7 fL Normal 6.2-12.0 [facility] Comment on above: Order Comment: 109-1 Performed By: #### L 100.0100 ####[facility] [address] [place], [address] Monocyte percentageOrdered B y: Renard Burgos on 11-25-2024 Monocytes/100 WBC (Bld) 8.6 % Normal 0-10 [facility] Comment on above: Order Comment: 109-1 Performed By: #### L 100.0100 ####[facility] [address] [place], [address] Neutrophil percentageOrdered By: Renard Burgos on 11-25-2024 Neutrophils/100 WBC (Bld) 72.7 % High 47-70 [facility] Comment on above: Order Comment: 109-1 Performed By: #### L 100.0100 ####[facility] [address] [place], [address] Nucleated red blood cell per centageOrdered By: Renard Burgos on 11-25-2024 Nucleated RBC/100 WBC (Bld) [Ratio] 0 % 0-5 [facility] Platelet countOrdered By: Garrick Bhatt on 11-25-2024 Platelets (Bld) [#/Vol] 201 10*3/uL Normal 150-450 [facility] Comment on above: Order Comment: 109-1 Performed By: #### L 100.0100 ####[facility] [address] [place], [address] White blood cell (WBC) count Ordered By: Renard Burgos on 11-25-2024 WBC (Bld) [#/Vol] 10.4 10*3/uL Normal 4.4-11.0 [facility] Comment on above: Order Comment: 109-1 Performed By: #### L 100.0100 ####[facility] [address] [facility] [address] [place], [place], [id number] Absolute lymphocyte countOrd ered By: Renard Burgos on 11-18-2024 Lymphocytes Auto (Unsp spec) [#/Vol] 2.56 10*3/uL 0.83-4.51 [facility] Absolute neutrophil countOrd ered By: Renard Burgos on 11-18-2024 Neutrophils (Bld) [#/Vol] 6.7 10*3/uL 2.0-7.7 [facility] Automated lymphocyte count a s percentage of total leukocytesOrdered By: Renard Burgos on 11-18-2024 Lymphocytes/100 WBC Auto (Unsp spec) 24.9 % 19-41 [facility] Basophil percentageOrdered B y: Renard Burgos on 11-18-2024 Basophils/100 WBC (Bld) 0.5 % 0-1 [facility] CBC W/Diff, Automatedon 10-30 Absolute Lymph 2.56 X10 3/uL Normal 0.83-4.51 [facility] Comment on above: Order Comment: 109.1 Performed By: #### L 100.0100 ####[facility] [address] [place], [address] Absolute Neut 6.7 X10 3/uL Normal 2.0-7.7 [facility] Comment on above: Order Comment: 109.1 Performed By: #### L 100.0100 ####[facility] [address] [place], [address] Basophils/100 WBC (Bld) 0.5 % Normal 0-1 [facility] Comment on above: Order Comment: 109.1 Performed By: #### L 100.0100 ####[facility] [address] [place], [address] Eosinophils/100 WBC (Bld) 0.8 % Normal 0-5 [facility] Comment on above: Order Comment: 109.1 Performed By: #### L 100.0100 ####[facility] [address] [place], [address] Erythrocyte distribution width (RBC) [Ratio] 13.2 % Normal 11.6-14.6 [facility] Comment on above: Order Comment: 109.1 Performed By: #### L 100.0100 ####[facility] [address] [place], [address] Hematocrit (Bld) [Volume fraction] 41.6 % Normal 40-54 [facility] Comment on above: Order Comment: 109.1 Performed By: #### L 100.0100 ####[facility] [address] [place], [address] Hemoglobin (Bld) [Mass/Vol] 13.6 g/dL Normal 13.0-16.5 [facility] Comment on above: Order Comment: 109.1 Performed By: #### L 100.0100 ####[facility] [address] [place], [address] IG% 0.400 Normal 0.0-0.9 [facility] Comment on above: Order Comment: 109.1 Result Comment: IG% - Immature Granulocytes (promyelocytes, myelocytes andmetamyelocytes) > 1% indicates that a LEFT SHIFT is Present. Performed By: #### L 100.0100 ####[facility] [address] [place], [address] Lymphocytes/100 WBC (Bld) 24.9 % Normal 19-41 [facility] Comment on above: Order Comment: 109.1 Performed By: #### L 100.0100 ####[facility] [address] [place], [address] MCH (RBC) [Entitic mass] 30.3 pg Normal 27.0-32.0 [facility] Comment on above: Order Comment: 109.1 Performed By: #### L 100.0100 ####[facility] [address] [place], [address] MCHC (RBC) [Mass/Vol] 32.7 g/dL Normal 32-36 [facility] Comment on above: Order Comment: 109.1 Performed By: #### L 100.0100 ####[facility] [address] [place], [address] MCV (RBC) [Entitic vol] 92.7 fL Normal 80-94 [facility] Comment on above: Order Comment: 109.1 Performed By: #### L 100.0100 ####[facility] [address] [place], [address] Monocytes/100 WBC (Bld) 8.9 % Normal 0-10 [facility] Comment on above: Order Comment: 109.1 Performed By: #### L 100.0100 ####[facility] [address] [place], [address] Neutrophils/100 WBC (Bld) 64.5 % Normal 47-70 [facility] Comment on above: Order Comment: 109.1 Performed By: #### L 100.0100 ####[facility] [address] [place], [address] Nucleated RBC (Bld) [#/Vol] 0 10*3/uL Normal 0-5 [facility] Comment on above: Order Comment: 109.1 Performed By: #### L 100.0100 ####[facility] [address] [place], [address] Platelet mean volume (Bld) [Entitic vol] 11.0 fL Normal 6.2-12.0 [facility] Comment on above: Order Comment: 109.1 Performed By: #### L 100.0100 ####[facility] [address] [place], [address] Platelets (Bld) [#/Vol] 177 10*3/uL Normal 150-450 [facility] Comment on above: Order Comment: 109.1 Performed By: #### L 100.0100 ####[facility] [address] [place], [address] RBC (Bld) [#/Vol] 4.49 10*6/uL Low 4.6-6.2 [facility] Comment on above: Order Comment: 109.1 Performed By: #### L 100.0100 ####[facility] [address] [place], [address] RDW SD 44.9 fl High 35.1-43.9 [facility] Comment on above: Order Comment: 109.1 Performed By: #### L 100.0100 ####[facility] [address] [place], [address] WBC (Bld) [#/Vol] 10.3 10*3/uL Normal 4.4-11.0 [facility] Comment on above: Order Comment: 109.1 Performed By: #### L 100.0100 ####[facility] [address] [place], [address] Eosinophil percentageOrdered By: Renard Burgos on 11-18-2024 Eosinophils/100 WBC (Bld) 0.8 % 0-5 [facility] Erythrocyte distribution wid th ratioOrdered By: Renard Burgos on 11-18-2024 Erythrocyte distribution width (RBC) [Ratio] 13.2 % 11.6-14.6 [facility] Erythrocyte distribution wid th standard deviationOrdered By: Renard Burgos on 11-18-2024 Erythrocyte distribution width (RBC) [Ratio] 44.9 fl High 35.1-43.9 [facility] Hematocrit Auto (Bld) [Volum e fraction]Ordered By: Renard Burgos on 11-18-2024 Hematocrit (Bld) [Volume fraction] 41.6 % 40-54 [facility] Hemoglobin measurementOrdere d By: Renard Burgos on 11-18-2024 Hemoglobin (Bld) [Mass/Vol] 13.6 g/dL 13.0-16.5 [facility] Immature granulocytes/100 WB C Auto (Bld)Ordered By: Renard Burgos on 11-18-2024 Immature granulocytes/100 WBC (Bld) 0.400 % 0.0-0.9 [facility] Comment on above: IG% - Immature Granu locytes (promyelocytes, myelocytes and metamyelocytes) > 1% indicates that a LEFT SHIFT is Present. MCV (mean corpuscular volume ) determinationOrdered By: Renard Burgos on 11-18-2024 MCV (RBC) [Entitic vol] 92.7 fL 80-94 [facility] Mean corpuscular hemoglobin (MCH) determinationOrdered By: Renard Burgos on 11-18-2024 MCH (RBC) [Entitic mass] 30.3 pg 27.0-32.0 [facility] Mean corpuscular hemoglobin concentration (MCHC) determinationOrdered By: Renard Burgos on 11-18-2024 MCHC (RBC) [Mass/Vol] 32.7 g/dL 32-36 [facility] Mean platelet volume determi nationOrdered By: Renard Burgos on 11-18-2024 Platelet mean volume (Bld) [Entitic vol] 11.0 fL 6.2-12.0 [facility] Monocyte percentageOrdered B y: Renard Burgos on 11-18-2024 Monocytes/100 WBC (Bld) 8.9 % 0-10 [facility] Neutrophil percentageOrdered By: Renard Burgos on 11-18-2024 Neutrophils/100 WBC (Bld) 64.5 % 47-70 [facility] Nucleated red blood cell per centageOrdered By: Renard Burgos on 11-18-2024 Nucleated RBC/100 WBC (Bld) [Ratio] 0 % 0-5 [facility] Platelet countOrdered By: Garrick Bhatt on 11-18-2024 Platelets (Bld) [#/Vol] 177 10*3/uL 150-450 [facility] RBC Auto (Bld) [#/Vol]Ordere d By: Renard Burgos on 11-18-2024 RBC (Bld) [#/Vol] 4.49 10*6/uL Low 4.6-6.2 [facility] White blood cell (WBC) count Ordered By: Renard Burgos on 11-18-2024 WBC (Bld) [#/Vol] 10.3 10*3/uL 4.4-11.0 [facility] Basic Metabolic Profile (BMP )on 11-12-2024 BUN/CRE 18.8 RATIO Normal 10-20 [facility] Comment on above: Order Comment: ADDED BMP TO 11/11/24 LABS Performed By: #### L 100.0100, L500.2500 ####[facility] [address] [place], [address] Calcium [Mass/Vol] 8.2 mg/dL Normal 7.6-11.0 [facility] Comment on above: Order Comment: ADDED BMP TO 11/11/24 LABS Performed By: #### L 100.0100, L500.2500 ####[facility] [address] [place], [address] Chloride [Moles/Vol] 104 mmol/L Normal 98-108 [facility] Comment on above: Order Comment: ADDED BMP TO 11/11/24 LABS Performed By: #### L 100.0100, L500.2500 ####[facility] [address] [place], [address] CO2 [Moles/Vol] 24.9 mmol/L Normal 21.0-32.0 [facility] Comment on above: Order Comment: ADDED BMP TO 11/11/24 LABS Performed By: #### L 100.0100, L500.2500 ####[facility] [address] [place], [address] Creatinine [Mass/Vol] 0.58 mg/dL Low 0.70-1.20 [facility] Comment on above: Order Comment: ADDED BMP TO 11/11/24 LABS Performed By: #### L 100.0100, L500.2500 ####[facility] [address] [place], [address] GAP 11 Normal 5-15 [facility] Comment on above: Order Comment: ADDED BMP TO 11/11/24 LABS Performed By: #### L 100.0100, L500.2500 ####[facility] [address] [place], [address] GFR/1.73 sq M.predicted among non-blacks MDRD (S/P/Bld) [Vol rate/Area] 107 mL/min/{1.73_m2} Normal >60 [facility] Comment on above: Order Comment: ADDED BMP TO 11/11/24 LABS Result Comment: mL/m in/1.73m2 CKD-EPI Creatinine Equation (2020) Performed By: #### L 100.0100, L500.2500 ####[facility] [address] [place], [address] Glucose [Mass/Vol] 101 mg/dL High 70-99 [facility] Comment on above: Order Comment: ADDED BMP TO 11/11/24 LABS Performed By: #### L 100.0100, L500.2500 ####[facility] [address] [place], [address] Potassium [Moles/Vol] 3.9 mmol/L Normal 3.3-5.1 [facility] Comment on above: Order Comment: ADDED BMP TO 11/11/24 LABS Performed By: #### L 100.0100, L500.2500 ####[facility] [address] [place], [address] Sodium [Moles/Vol] 140 mmol/L Normal 133-145 [facility] Comment on above: Order Comment: ADDED BMP TO 11/11/24 LABS Performed By: #### L 100.0100, L500.2500 ####[facility] [address] [place], [address] Urea nitrogen [Mass/Vol] 11 mg/dL Normal 4-19 [facility] Comment on above: Order Comment: ADDED BMP TO 11/11/24 LABS Performed By: #### L 100.0100, L500.2500 ####[facility] [address] [place], [address] Absolute lymphocyte countOrd ered By: Renard Burgos on 11-11-2024 Lymphocytes Auto (Unsp spec) [#/Vol] 2.08 10*3/uL 0.83-4.51 [facility] Absolute neutrophil countOrd ered By: Renard Burgos on 11-11-2024 Neutrophils (Bld) [#/Vol] 5.2 10*3/uL 2.0-7.7 [facility] Anion gap in Serum or Plasma Ordered By: Renard Burgos on 11-11-2024 Anion gap [Moles/Vol] 11 mmol/L 5-15 [facility] Automated lymphocyte count a s percentage of total leukocytesOrdered By: Renard Burgos on 11-11-2024 Lymphocytes/100 WBC Auto (Unsp spec) 25.7 % 19-41 [facility] BUN/creatinine ratioOrdered By: Renard Burgos on 11-11-2024 Urea nitrogen/Creatinine [Mass ratio] 18.8 mg/mg 10-20 [facility] Basophil percentageOrdered B y: Renard Burgos on 11-11-2024 Basophils/100 WBC (Bld) 0.6 % 0-1 [facility] CBC W/Diff, Automatedon 10-29 Absolute Lymph 2.08 X10 3/uL Normal 0.83-4.51 [facility] Comment on above: Order Comment: 109.1 Performed By: #### L 100.0100, L500.2500 ####[facility] [address] [place], [address] Absolute Neut 5.2 X10 3/uL Normal 2.0-7.7 [facility] Comment on above: Order Comment: 109.1 Performed By: #### L 100.0100, L500.2500 ####[facility] [address] [place], [address] Basophils/100 WBC (Bld) 0.6 % Normal 0-1 [facility] Comment on above: Order Comment: 109.1 Performed By: #### L 100.0100, L500.2500 ####[facility] [address] [place], [address] Eosinophils/100 WBC (Bld) 1.0 % Normal 0-5 [facility] Comment on above: Order Comment: 109.1 Performed By: #### L 100.0100, L500.2500 ####[facility] [address] [place], [address] Erythrocyte distribution width (RBC) [Ratio] 13.2 % Normal 11.6-14.6 [facility] Comment on above: Order Comment: 109.1 Performed By: #### L 100.0100, L500.2500 ####[facility] [address] [place], [address] Hematocrit (Bld) [Volume fraction] 38.6 % Low 40-54 [facility] Comment on above: Order Comment: 109.1 Performed By: #### L 100.0100, L500.2500 ####[facility] [address] [place], [address] Hemoglobin (Bld) [Mass/Vol] 12.6 g/dL Low 13.0-16.5 [facility] Comment on above: Order Comment: 109.1 Performed By: #### L 100.0100, L500.2500 ####[facility] [address] [place], [address] IG% 0.400 Normal 0.0-0.9 [facility] Comment on above: Order Comment: 109.1 Result Comment: IG% - Immature Granulocytes (promyelocytes, myelocytes andmetamyelocytes) > 1% indicates that a LEFT SHIFT is Present. Performed By: #### L 100.0100, L500.2500 ####[facility] [address] [place], [address] Lymphocytes/100 WBC (Bld) 25.7 % Normal 19-41 [facility] Comment on above: Order Comment: 109.1 Performed By: #### L 100.0100, L500.2500 ####[facility] [address] [place], [address] MCH (RBC) [Entitic mass] 29.9 pg Normal 27.0-32.0 [facility] Comment on above: Order Comment: 109.1 Performed By: #### L 100.0100, L500.2500 ####[facility] [address] [place], [address] MCHC (RBC) [Mass/Vol] 32.6 g/dL Normal 32-36 [facility] Comment on above: Order Comment: 109.1 Performed By: #### L 100.0100, L500.2500 ####[facility] [address] [place], [address] MCV (RBC) [Entitic vol] 91.7 fL Normal 80-94 [facility] Comment on above: Order Comment: 109.1 Performed By: #### L 100.0100, L500.2500 ####[facility] [address] [place], [address] Monocytes/100 WBC (Bld) 8.3 % Normal 0-10 [facility] Comment on above: Order Comment: 109.1 Performed By: #### L 100.0100, L500.2500 ####[facility] [address] [place], [address] Neutrophils/100 WBC (Bld) 64.0 % Normal 47-70 [facility] Comment on above: Order Comment: 109.1 Performed By: #### L 100.0100, L500.2500 ####[facility] [address] [place], [address] Nucleated RBC (Bld) [#/Vol] 0 10*3/uL Normal 0-5 [facility] Comment on above: Order Comment: 109.1 Performed By: #### L 100.0100, L500.2500 ####[facility] [address] [place], [address] Platelet mean volume (Bld) [Entitic vol] 11.4 fL Normal 6.2-12.0 [facility] Comment on above: Order Comment: 109.1 Performed By: #### L 100.0100, L500.2500 ####[facility] [address] [place], [address] Platelets (Bld) [#/Vol] 220 10*3/uL Normal 150-450 [facility] Comment on above: Order Comment: 109.1 Performed By: #### L 100.0100, L500.2500 ####[facility] [address] [place], [address] RBC (Bld) [#/Vol] 4.21 10*6/uL Low 4.6-6.2 [facility] Comment on above: Order Comment: 109.1 Performed By: #### L 100.0100, L500.2500 ####[facility] [address] [place], [address] RDW SD 44.4 fl High 35.1-43.9 [facility] Comment on above: Order Comment: 109.1 Performed By: #### L 100.0100, L500.2500 ####[facility] [address] [place], [address] WBC (Bld) [#/Vol] 8.1 10*3/uL Normal 4.4-11.0 [facility] Comment on above: Order Comment: 109.1 Performed By: #### L 100.0100, L500.2500 ####[facility] [address] [place], [address] Carbon dioxide, total [Moles /volume] in Central venous bloodOrdered By: Renard Burgos on 11-11-2024 CO2 [Moles/Vol] 24.9 mmol/L 21.0-32.0 [facility] Chloride assayOrdered By: Garrick Bhatt on 11-11-2024 Chloride [Moles/Vol] 104 mmol/L 98-108 [facility] Eosinophil percentageOrdered By: Renard Burgos on 11-11-2024 Eosinophils/100 WBC (Bld) 1.0 % 0-5 [facility] Erythrocyte distribution wid th ratioOrdered By: Renard Burgos on 11-11-2024 Erythrocyte distribution width (RBC) [Ratio] 13.2 % 11.6-14.6 [facility] Erythrocyte distribution wid th standard deviationOrdered By: Renard Burgos on 11-11-2024 Erythrocyte distribution width (RBC) [Ratio] 44.4 fl High 35.1-43.9 [facility] Glomerular filtration rate ( GFR) estimation/1.73 sq m using serum, plasma, or whole bOrdered By: Renard Burgos on 11-11-2024 GFR/1.73 sq M.predicted among non-blacks MDRD (S/P/Bld) [Vol rate/Area] 107 mL/min/{1.73_m2} >60 [facility] Comment on above: mL/min/1.73m2 CKD-EP I Creatinine Equation (2020) Hematocrit Auto (Bld) [Volum e fraction]Ordered By: Renard Burgos on 11-11-2024 Hematocrit (Bld) [Volume fraction] 38.6 % Low 40-54 [facility] Hemoglobin measurementOrdere d By: Renard Burgos on 11-11-2024 Hemoglobin (Bld) [Mass/Vol] 12.6 g/dL Low 13.0-16.5 [facility] Immature granulocytes/100 WB C Auto (Bld)Ordered By: Renard Burgos on 11-11-2024 Immature granulocytes/100 WBC (Bld) 0.400 % 0.0-0.9 [facility] Comment on above: IG% - Immature Granu locytes (promyelocytes, myelocytes and metamyelocytes) > 1% indicates that a LEFT SHIFT is Present. MCV (mean corpuscular volume ) determinationOrdered By: Renard Burgos on 11-11-2024 MCV (RBC) [Entitic vol] 91.7 fL 80-94 [facility] Mean corpuscular hemoglobin (MCH) determinationOrdered By: Renard Burgos on 11-11-2024 MCH (RBC) [Entitic mass] 29.9 pg 27.0-32.0 [facility] Mean corpuscular hemoglobin concentration (MCHC) determinationOrdered By: Renard Burgos on 11-11-2024 MCHC (RBC) [Mass/Vol] 32.6 g/dL 32-36 [facility] Mean platelet volume determi nationOrdered By: Renard Burgos on 11-11-2024 Platelet mean volume (Bld) [Entitic vol] 11.4 fL 6.2-12.0 [facility] Monocyte percentageOrdered B y: Renard Burgos on 11-11-2024 Monocytes/100 WBC (Bld) 8.3 % 0-10 [facility] Neutrophil percentageOrdered By: Renard Burgos on 11-11-2024 Neutrophils/100 WBC (Bld) 64.0 % 47-70 [facility] Nucleated red blood cell per centageOrdered By: Renard Burgos on 11-11-2024 Nucleated RBC/100 WBC (Bld) [Ratio] 0 % 0-5 [facility] Platelet countOrdered By: Garrick Bhatt on 11-11-2024 Platelets (Bld) [#/Vol] 220 10*3/uL 150-450 [facility] Potassium measurement (mass/ volume)Ordered By: Renard Burgos on 11-11-2024 Potassium (Unsp spec) [Mass/Vol] 3.9 mmol/L 3.3-5.1 [facility] RBC Auto (Bld) [#/Vol]Ordere d By: Renard Burgos on 11-11-2024 RBC (Bld) [#/Vol] 4.21 10*6/uL Low 4.6-6.2 [facility] Serum creatinine measurement (mass/volume)Ordered By: Renard Burgos on 11-11-2024 Creatinine [Mass/Vol] 0.58 mg/dL Low 0.70-1.20 [facility] Serum glucose measurement (m ass/volume)Ordered By: Renard Burgos on 11-11-2024 Glucose [Mass/Vol] 101 mg/dL High 70-99 [facility] Serum or plasma calcium gordy urement (mass/volume)Ordered By: Renard Burgos on 11-11-2024 Calcium [Mass/Vol] 8.2 mg/dL 7.6-11.0 [facility] Serum or plasma urea nitroge n measurement (mass/volume)Ordered By: Renard Burgos on 11-11-2024 Urea nitrogen [Mass/Vol] 11 mg/dL 4-19 [facility] Sodium levelOrdered By: Lamine Burgos on 11-11-2024 Sodium [Moles/Vol] 140 mmol/L 133-145 [facility] White blood cell (WBC) count Ordered By: Renard Burgos on 11-11-2024 WBC (Bld) [#/Vol] 8.1 10*3/uL 4.4-11.0 [facility] Absolute lymphocyte countOrd ered By: Renard Burgos on 11-04-2024 Lymphocytes Auto (Unsp spec) [#/Vol] 2.18 10*3/uL 0.83-4.51 [facility] Absolute neutrophil countOrd ered By: Renard Burgos on 11-04-2024 Neutrophils (Bld) [#/Vol] 4.8 10*3/uL 2.0-7.7 [facility] Automated lymphocyte count a s percentage of total leukocytesOrdered By: Renard Burgos on 11-04-2024 Lymphocytes/100 WBC Auto (Unsp spec) 28.1 % 19-41 [facility] Basophil percentageOrdered B y: Renard Burgos on 11-04-2024 Basophils/100 WBC (Bld) 0.6 % 0-1 [facility] CBC W/Diff, Automatedon PLT EST A Normal ADEQ [facility] Comment on above: Order Comment: 109 Performed By: #### L 100.0100 ####[facility] [address] [place], [place], [id number] PLT MORPH CLUMPED Normal [facility] Comment on above: Order Comment: 109 Performed By: #### L 100.0100 ####[facility] [address] [place], [place], [id number] Eosinophil percentageOrdered By: Renard Burgos on 11-04-2024 Eosinophils/100 WBC (Bld) 0.8 % 0-5 [facility] Erythrocyte distribution wid th ratioOrdered By: Renard Burgos on 11-04-2024 Erythrocyte distribution width (RBC) [Ratio] 13.3 % 11.6-14.6 [facility] Erythrocyte distribution wid th standard deviationOrdered By: Renard Burgos on 11-04-2024 Erythrocyte distribution width (RBC) [Ratio] 45.0 fl High 35.1-43.9 [facility] Hematocrit Auto (Bld) [Volum e fraction]Ordered By: Renard Burgos on 11-04-2024 Hematocrit (Bld) [Volume fraction] 42.8 % 40-54 [facility] Hemoglobin measurementOrdere d By: Renard Burgos on 11-04-2024 Hemoglobin (Bld) [Mass/Vol] 14.0 g/dL 13.0-16.5 [facility] Immature granulocytes/100 WB C Auto (Bld)Ordered By: Renard Burgos on 11-04-2024 Immature granulocytes/100 WBC (Bld) 0.400 % 0.0-0.9 [facility] Comment on above: IG% - Immature Granu locytes (promyelocytes, myelocytes and metamyelocytes) > 1% indicates that a LEFT SHIFT is Present. MCV (mean corpuscular volume ) determinationOrdered By: Renard Burgos on 11-04-2024 MCV (RBC) [Entitic vol] 92.4 fL 80-94 [facility] Mean corpuscular hemoglobin (MCH) determinationOrdered By: Renard Burgos on 11-04-2024 MCH (RBC) [Entitic mass] 30.2 pg 27.0-32.0 [facility] Mean corpuscular hemoglobin concentration (MCHC) determinationOrdered By: Renard Burgos on 11-04-2024 MCHC (RBC) [Mass/Vol] 32.7 g/dL 32-36 [facility] Mean platelet volume determi nationOrdered By: Renard Burgos on 11-04-2024 Platelet mean volume (Bld) [Entitic vol] 11.6 fL 6.2-12.0 [facility] Monocyte percentageOrdered B y: Renard Burgos on 11-04-2024 Monocytes/100 WBC (Bld) 8.4 % 0-10 [facility] Neutrophil percentageOrdered By: Renard Burgos on 11-04-2024 Neutrophils/100 WBC (Bld) 61.7 % 47-70 [facility] Nucleated red blood cell per centageOrdered By: Renard Burgos on 11-04-2024 Nucleated RBC/100 WBC (Bld) [Ratio] 0 % 0-5 [facility] Platelet countOrdered By: Garrick Bhatt on 11-04-2024 Platelet count TNP [facility] Comment on above: Test not performed Platelet estimateOrdered By: Renard Burgos on 11-04-2024 Platelets LM Ql (Bld) A ADEQ [facility] Platelet morphologyOrdered B y: Renard Burgos on 11-04-2024 Platelet morphology finding Nom (Bld) CLUMPED [facility] RBC Auto (Bld) [#/Vol]Ordere d By: Renard Burgos on 11-04-2024 RBC (Bld) [#/Vol] 4.63 10*6/uL 4.6-6.2 [facility] White blood cell (WBC) count Ordered By: Renard Burgos on 11-04-2024 WBC (Bld) [#/Vol] 7.8 10*3/uL 4.4-11.0 [facility] Absolute lymphocyte countOrd ered By: Renard Burgos on 10-28-2024 Lymphocytes Auto (Unsp spec) [#/Vol] 1.72 10*3/uL 0.83-4.51 [facility] Absolute neutrophil countOrd ered By: Renard Burgos on 10-28-2024 Neutrophils (Bld) [#/Vol] 5.0 10*3/uL 2.0-7.7 [facility] Automated lymphocyte count a s percentage of total leukocytesOrdered By: Renard Burgos on 10-28-2024 Lymphocytes/100 WBC Auto (Unsp spec) 22.9 % 19-41 [facility] Basophil percentageOrdered B y: Renard Burgos on 10-28-2024 Basophils/100 WBC (Bld) 0.7 % 0-1 [facility] CBC W/Diff, Automatedon 10-01 Absolute Lymph 1.72 X10 3/uL Normal 0.83-4.51 [facility] Comment on above: Order Comment: 109-1 Performed By: #### L 100.0100 ####[facility] [address] [place], [address] Absolute Neut 5.0 X10 3/uL Normal 2.0-7.7 [facility] Comment on above: Order Comment: 109-1 Performed By: #### L 100.0100 ####[facility] [address] [place], [address] Basophils/100 WBC (Bld) 0.7 % Normal 0-1 [facility] Comment on above: Order Comment: 109-1 Performed By: #### L 100.0100 ####[facility] [address] [place], [address] Eosinophils/100 WBC (Bld) 1.2 % Normal 0-5 [facility] Comment on above: Order Comment: 109-1 Performed By: #### L 100.0100 ####[facility] [address] [place], [address] Erythrocyte distribution width (RBC) [Ratio] 13.2 % Normal 11.6-14.6 [facility] Comment on above: Order Comment: 109-1 Performed By: #### L 100.0100 ####[facility] [address] [place], [address] Hematocrit (Bld) [Volume fraction] 37.3 % Low 40-54 [facility] Comment on above: Order Comment: 109-1 Performed By: #### L 100.0100 ####[facility] [address] [place], [address] Hemoglobin (Bld) [Mass/Vol] 12.3 g/dL Low 13.0-16.5 [facility] Comment on above: Order Comment: 109-1 Performed By: #### L 100.0100 ####[facility] [address] [place], [address] IG% 0.100 Normal 0.0-0.9 [facility] Comment on above: Order Comment: 109-1 Result Comment: IG% - Immature Granulocytes (promyelocytes, myelocytes andmetamyelocytes) > 1% indicates that a LEFT SHIFT is Present. Performed By: #### L 100.0100 ####[facility] [address] [place], [address] Lymphocytes/100 WBC (Bld) 22.9 % Normal 19-41 [facility] Comment on above: Order Comment: 109-1 Performed By: #### L 100.0100 ####[facility] [address] [place], [address] MCH (RBC) [Entitic mass] 30.1 pg Normal 27.0-32.0 [facility] Comment on above: Order Comment: 109-1 Performed By: #### L 100.0100 ####[facility] [address] [place], [address] MCHC (RBC) [Mass/Vol] 33.0 g/dL Normal 32-36 [facility] Comment on above: Order Comment: 109-1 Performed By: #### L 100.0100 ####[facility] [address] [place], [address] MCV (RBC) [Entitic vol] 91.4 fL Normal 80-94 [facility] Comment on above: Order Comment: 109-1 Performed By: #### L 100.0100 ####[facility] [address] [place], [address] Monocytes/100 WBC (Bld) 8.1 % Normal 0-10 [facility] Comment on above: Order Comment: 109-1 Performed By: #### L 100.0100 ####[facility] [address] [place], [address] Neutrophils/100 WBC (Bld) 67.0 % Normal 47-70 [facility] Comment on above: Order Comment: 109-1 Performed By: #### L 100.0100 ####[facility] [address] [place], [address] Nucleated RBC (Bld) [#/Vol] 0 10*3/uL Normal 0-5 [facility] Comment on above: Order Comment: 109-1 Performed By: #### L 100.0100 ####[facility] [address] [place], [address] Platelet mean volume (Bld) [Entitic vol] 11.3 fL Normal 6.2-12.0 [facility] Comment on above: Order Comment: 109-1 Performed By: #### L 100.0100 ####[facility] [address] [place], [address] Platelets (Bld) [#/Vol] 201 10*3/uL Normal 150-450 [facility] Comment on above: Order Comment: 109-1 Performed By: #### L 100.0100 ####[facility] [address] [place], [address] RBC (Bld) [#/Vol] 4.08 10*6/uL Low 4.6-6.2 [facility] Comment on above: Order Comment: 109-1 Performed By: #### L 100.0100 ####[facility] [address] [place], [address] RDW SD 44.0 fl High 35.1-43.9 [facility] Comment on above: Order Comment: 109-1 Performed By: #### L 100.0100 ####[facility] [address] [place], [address] WBC (Bld) [#/Vol] 7.5 10*3/uL Normal 4.4-11.0 [facility] Comment on above: Order Comment: 109-1 Performed By: #### L 100.0100 ####[facility] [address] [place], [address] Eosinophil percentageOrdered By: Renard Burgos on 10-28-2024 Eosinophils/100 WBC (Bld) 1.2 % 0-5 [facility] Erythrocyte distribution wid th ratioOrdered By: Renard Burgos on 10-28-2024 Erythrocyte distribution width (RBC) [Ratio] 13.2 % 11.6-14.6 [facility] Erythrocyte distribution wid th standard deviationOrdered By: Renard Burgos on 10-28-2024 Erythrocyte distribution width (RBC) [Ratio] 44.0 fl High 35.1-43.9 [facility] Hematocrit Auto (Bld) [Volum e fraction]Ordered By: Renard Burgos on 10-28-2024 Hematocrit (Bld) [Volume fraction] 37.3 % Low 40-54 [facility] Hemoglobin measurementOrdere d By: Renard Burgos on 10-28-2024 Hemoglobin (Bld) [Mass/Vol] 12.3 g/dL Low 13.0-16.5 [facility] Immature granulocytes/100 WB C Auto (Bld)Ordered By: Renard Burgos on 10-28-2024 Immature granulocytes/100 WBC (Bld) 0.100 % 0.0-0.9 [facility] Comment on above: IG% - Immature Granu locytes (promyelocytes, myelocytes and metamyelocytes) > 1% indicates that a LEFT SHIFT is Present. MCV (mean corpuscular volume ) determinationOrdered By: Renard Burgos on 10-28-2024 MCV (RBC) [Entitic vol] 91.4 fL 80-94 [facility] Mean corpuscular hemoglobin (MCH) determinationOrdered By: Renard Burgos on 10-28-2024 MCH (RBC) [Entitic mass] 30.1 pg 27.0-32.0 [facility] Mean corpuscular hemoglobin concentration (MCHC) determinationOrdered By: Renard Burgos on 10-28-2024 MCHC (RBC) [Mass/Vol] 33.0 g/dL 32-36 [facility] Mean platelet volume determi nationOrdered By: Renard Burgos on 10-28-2024 Platelet mean volume (Bld) [Entitic vol] 11.3 fL 6.2-12.0 [facility] Monocyte percentageOrdered B y: Renard Burgos on 10-28-2024 Monocytes/100 WBC (Bld) 8.1 % 0-10 [facility] Neutrophil percentageOrdered By: Renard Burgos on 10-28-2024 Neutrophils/100 WBC (Bld) 67.0 % 47-70 [facility] Nucleated red blood cell per centageOrdered By: Renard Burgos on 10-28-2024 Nucleated RBC/100 WBC (Bld) [Ratio] 0 % 0-5 [facility] Platelet countOrdered By: Garrick Bhatt on 10-28-2024 Platelets (Bld) [#/Vol] 201 10*3/uL 150-450 [facility] RBC Auto (Bld) [#/Vol]Ordere d By: Renard Burgos on 10-28-2024 RBC (Bld) [#/Vol] 4.08 10*6/uL Low 4.6-6.2 [facility] White blood cell (WBC) count Ordered By: Renard Burgos on 10-28-2024 WBC (Bld) [#/Vol] 7.5 10*3/uL 4.4-11.0 [facility] Absolute lymphocyte countOrd ered By: Renard Burgos on 10-21-2024 Lymphocytes Auto (Unsp spec) [#/Vol] 2.41 10*3/uL 0.83-4.51 [facility] Absolute neutrophil countOrd ered By: Renard Burgos on 10-21-2024 Neutrophils (Bld) [#/Vol] 5.2 10*3/uL 2.0-7.7 [facility] Automated lymphocyte count a s percentage of total leukocytesOrdered By: Renard Burgos on 10-21-2024 Lymphocytes/100 WBC Auto (Unsp spec) 28.2 % 19- [facility] Basophil percentageOrdered B y: Renard Burgos on 10-21-2024 Basophils/100 WBC (Bld) 0.6 % 0-1 [facility] CBC W/Diff, Automatedon 09-30 Absolute Lymph 2.41 X10 3/uL Normal 0.83-4.51 [facility] Comment on above: Order Comment: 109 Performed By: #### L 100.0100 ####[facility] [address] [place], [address] Absolute Neut 5.2 X10 3/uL Normal 2.0-7.7 [facility] Comment on above: Order Comment: 109 Performed By: #### L 100.0100 ####[facility] [address] [place], [address] Basophils/100 WBC (Bld) 0.6 % Normal 0-1 [facility] Comment on above: Order Comment: 109 Performed By: #### L 100.0100 ####[facility] [address] [place], [address] Eosinophils/100 WBC (Bld) 0.8 % Normal 0-5 [facility] Comment on above: Order Comment: 109 Performed By: #### L 100.0100 ####[facility] [address] [place], [address] Erythrocyte distribution width (RBC) [Ratio] 13.3 % Normal 11.6-14.6 [facility] Comment on above: Order Comment: 109 Performed By: #### L 100.0100 ####[facility] [address] [place], [address] Hematocrit (Bld) [Volume fraction] 38.9 % Low 40-54 [facility] Comment on above: Order Comment: 109 Performed By: #### L 100.0100 ####[facility] [address] [place], [address] Hemoglobin (Bld) [Mass/Vol] 12.8 g/dL Low 13.0-16.5 [facility] Comment on above: Order Comment: 109 Performed By: #### L 100.0100 ####[facility] [address] [place], [address] IG% 0.400 Normal 0.0-0.9 [facility] Comment on above: Order Comment: 109 Result Comment: IG% - Immature Granulocytes (promyelocytes, myelocytes andmetamyelocytes) > 1% indicates that a LEFT SHIFT is Present. Performed By: #### L 100.0100 ####[facility] [address] [place], [address] Lymphocytes/100 WBC (Bld) 28.2 % Normal 19-41 [facility] Comment on above: Order Comment: 109 Performed By: #### L 100.0100 ####[facility] [address] [place], [address] MCH (RBC) [Entitic mass] 30.1 pg Normal 27.0-32.0 [facility] Comment on above: Order Comment: 109 Performed By: #### L 100.0100 ####[facility] [address] [place], [address] MCHC (RBC) [Mass/Vol] 32.9 g/dL Normal 32-36 [facility] Comment on above: Order Comment: 109 Performed By: #### L 100.0100 ####[facility] [address] [place], [address] MCV (RBC) [Entitic vol] 91.5 fL Normal 80-94 [facility] Comment on above: Order Comment: 109 Performed By: #### L 100.0100 ####[facility] [address] [place], [address] Monocytes/100 WBC (Bld) 9.1 % Normal 0-10 [facility] Comment on above: Order Comment: 109 Performed By: #### L 100.0100 ####[facility] [address] [place], [address] Neutrophils/100 WBC (Bld) 60.9 % Normal 47-70 [facility] Comment on above: Order Comment: 109 Performed By: #### L 100.0100 ####[facility] [address] [place], [address] Nucleated RBC (Bld) [#/Vol] 0 10*3/uL Normal 0-5 [facility] Comment on above: Order Comment: 109 Performed By: #### L 100.0100 ####[facility] [address] [place], [address] Platelet mean volume (Bld) [Entitic vol] 11.2 fL Normal 6.2-12.0 [facility] Comment on above: Order Comment: 109 Performed By: #### L 100.0100 ####[facility] [address] [place], [address] Platelets (Bld) [#/Vol] 204 10*3/uL Normal 150-450 [facility] Comment on above: Order Comment: 109 Performed By: #### L 100.0100 ####[facility] [address] [place], [address] RBC (Bld) [#/Vol] 4.25 10*6/uL Low 4.6-6.2 [facility] Comment on above: Order Comment: 109 Performed By: #### L 100.0100 ####[facility] [address] [place], [address] RDW SD 44.5 fl High 35.1-43.9 [facility] Comment on above: Order Comment: 109 Performed By: #### L 100.0100 ####[facility] [address] [place], [address] WBC (Bld) [#/Vol] 8.5 10*3/uL Normal 4.4-11.0 [facility] Comment on above: Order Comment: 109 Performed By: #### L 100.0100 ####[facility] [address] [place], [address] Eosinophil percentageOrdered By: Renard Burgos on 10-21-2024 Eosinophils/100 WBC (Bld) 0.8 % 0-5 [facility] Erythrocyte distribution wid th ratioOrdered By: Renard Burgos on 10-21-2024 Erythrocyte distribution width (RBC) [Ratio] 13.3 % 11.6-14.6 [facility] Erythrocyte distribution wid th standard deviationOrdered By: Renard Burgos on 10-21-2024 Erythrocyte distribution width (RBC) [Ratio] 44.5 fl High 35.1-43.9 [facility] Hematocrit Auto (Bld) [Volum e fraction]Ordered By: Renard Burgos on 10-21-2024 Hematocrit (Bld) [Volume fraction] 38.9 % Low 40-54 [facility] Hemoglobin measurementOrdere d By: Renard Burgos on 10-21-2024 Hemoglobin (Bld) [Mass/Vol] 12.8 g/dL Low 13.0-16.5 [facility] Immature granulocytes/100 WB C Auto (Bld)Ordered By: Renard Burgos on 10-21-2024 Immature granulocytes/100 WBC (Bld) 0.400 % 0.0-0.9 [facility] Comment on above: IG% - Immature Granu locytes (promyelocytes, myelocytes and metamyelocytes) > 1% indicates that a LEFT SHIFT is Present. MCV (mean corpuscular volume ) determinationOrdered By: Renard Burgos on 10-21-2024 MCV (RBC) [Entitic vol] 91.5 fL 80-94 [facility] Mean corpuscular hemoglobin (MCH) determinationOrdered By: Renard Burgos on 10-21-2024 MCH (RBC) [Entitic mass] 30.1 pg 27.0-32.0 [facility] Mean corpuscular hemoglobin concentration (MCHC) determinationOrdered By: Renard Burgos on 10-21-2024 MCHC (RBC) [Mass/Vol] 32.9 g/dL 32-36 [facility] Mean platelet volume determi nationOrdered By: Renard Burgos on 10-21-2024 Platelet mean volume (Bld) [Entitic vol] 11.2 fL 6.2-12.0 [facility] Monocyte percentageOrdered B y: Renard Burgos on 10-21-2024 Monocytes/100 WBC (Bld) 9.1 % 0-10 [facility] Neutrophil percentageOrdered By: Renard Burgos on 10-21-2024 Neutrophils/100 WBC (Bld) 60.9 % 47-70 [facility] Nucleated red blood cell per centageOrdered By: Renard Burgos on 10-21-2024 Nucleated RBC/100 WBC (Bld) [Ratio] 0 % 0-5 [facility] Platelet countOrdered By: Garrick Bhatt on 10-21-2024 Platelets (Bld) [#/Vol] 204 10*3/uL 150-450 [facility] RBC Auto (Bld) [#/Vol]Ordere d By: Renard Burgos on 10-21-2024 RBC (Bld) [#/Vol] 4.25 10*6/uL Low 4.6-6.2 [facility] White blood cell (WBC) count Ordered By: Renard Burgos on 10-21-2024 WBC (Bld) [#/Vol] 8.5 10*3/uL 4.4-11.0 [facility] Absolute lymphocyte countOrd ered By: Renard uBrgos on 10-14-2024 Lymphocytes Auto (Unsp spec) [#/Vol] 1.77 10*3/uL 0.83-4.51 [facility] Absolute neutrophil countOrd ered By: Renard Burgos on 10-14-2024 Neutrophils (Bld) [#/Vol] 4.8 10*3/uL 2.0-7.7 [facility] Automated lymphocyte count a s percentage of total leukocytesOrdered By: Renard Burgos on 10-14-2024 Lymphocytes/100 WBC Auto (Unsp spec) 24.2 % 19-41 [facility] Basophil percentageOrdered B y: Renard Burgos on 10-14-2024 Basophils/100 WBC (Bld) 0.7 % 0-1 [facility] CBC W/Diff, Automatedon 09-29 Absolute Lymph 1.77 X10 3/uL Normal 0.83-4.51 [facility] Comment on above: Order Comment: 109 Performed By: #### L 100.0100 ####[facility] [address] [place], [address] Absolute Neut 4.8 X10 3/uL Normal 2.0-7.7 [facility] Comment on above: Order Comment: 109 Performed By: #### L 100.0100 ####[facility] [address] [place], [address] Basophils/100 WBC (Bld) 0.7 % Normal 0-1 [facility] Comment on above: Order Comment: 109 Performed By: #### L 100.0100 ####[facility] [address] [place], [address] Eosinophils/100 WBC (Bld) 0.8 % Normal 0-5 [facility] Comment on above: Order Comment: 109 Performed By: #### L 100.0100 ####[facility] [address] [place], [address] Erythrocyte distribution width (RBC) [Ratio] 13.2 % Normal 11.6-14.6 [facility] Comment on above: Order Comment: 109 Performed By: #### L 100.0100 ####[facility] [address] [place], [address] Hematocrit (Bld) [Volume fraction] 42.7 % Normal 40-54 [facility] Comment on above: Order Comment: 109 Performed By: #### L 100.0100 ####[facility] [address] [place], [address] Hemoglobin (Bld) [Mass/Vol] 13.9 g/dL Normal 13.0-16.5 [facility] Comment on above: Order Comment: 109 Performed By: #### L 100.0100 ####[facility] [address] [place], [address] IG% 0.300 Normal 0.0-0.9 [facility] Comment on above: Order Comment: 109 Result Comment: IG% - Immature Granulocytes (promyelocytes, myelocytes andmetamyelocytes) > 1% indicates that a LEFT SHIFT is Present. Performed By: #### L 100.0100 ####[facility] [address] [place], [address] Lymphocytes/100 WBC (Bld) 24.2 % Normal 19-41 [facility] Comment on above: Order Comment: 109 Performed By: #### L 100.0100 ####[facility] [address] [place], [address] MCH (RBC) [Entitic mass] 29.7 pg Normal 27.0-32.0 [facility] Comment on above: Order Comment: 109 Performed By: #### L 100.0100 ####[facility] [address] [place], [address] MCHC (RBC) [Mass/Vol] 32.6 g/dL Normal 32-36 [facility] Comment on above: Order Comment: 109 Performed By: #### L 100.0100 ####[facility] [address] [place], [address] MCV (RBC) [Entitic vol] 91.2 fL Normal 80-94 [facility] Comment on above: Order Comment: 109 Performed By: #### L 100.0100 ####[facility] [address] [place], [address] Monocytes/100 WBC (Bld) 8.6 % Normal 0-10 [facility] Comment on above: Order Comment: 109 Performed By: #### L 100.0100 ####[facility] [address] [place], [address] Neutrophils/100 WBC (Bld) 65.4 % Normal 47-70 [facility] Comment on above: Order Comment: 109 Performed By: #### L 100.0100 ####[facility] [address] [place], [address] Nucleated RBC (Bld) [#/Vol] 0 10*3/uL Normal 0-5 [facility] Comment on above: Order Comment: 109 Performed By: #### L 100.0100 ####[facility] [address] [place], [address] Platelet mean volume (Bld) [Entitic vol] 11.1 fL Normal 6.2-12.0 [facility] Comment on above: Order Comment: 109 Performed By: #### L 100.0100 ####[facility] [address] [place], [address] Platelets (Bld) [#/Vol] 232 10*3/uL Normal 150-450 [facility] Comment on above: Order Comment: 109 Performed By: #### L 100.0100 ####[facility] [address] [place], [place], [phone] RBC (Bld) [#/Vol] 4.68 10*6/uL Normal 4.6-6.2 [facility] Comment on above: Order Comment: 109 Performed By: #### L 100.0100 ####[facility] [address] [place], [address] RDW SD 44.1 fl High 35.1-43.9 [facility] Comment on above: Order Comment: 109 Performed By: #### L 100.0100 ####[facility] [address] [place], [address] WBC (Bld) [#/Vol] 7.3 10*3/uL Normal 4.4-11.0 [facility] Comment on above: Order Comment: 109 Performed By: #### L 100.0100 ####[facility] [address] [place], [place], [phone] Eosinophil percentageOrdered By: Renard Burgos on 10-14-2024 Eosinophils/100 WBC (Bld) 0.8 % 0-5 [facility] Erythrocyte distribution wid th ratioOrdered By: Renard Burgos on 10-14-2024 Erythrocyte distribution width (RBC) [Ratio] 13.2 % 11.6-14.6 [facility] Erythrocyte distribution wid th standard deviationOrdered By: Renard Burgos on 10-14-2024 Erythrocyte distribution width (RBC) [Ratio] 44.1 fl High 35.1-43.9 [facility] Hematocrit Auto (Bld) [Volum e fraction]Ordered By: Renard Burgos on 10-14-2024 Hematocrit (Bld) [Volume fraction] 42.7 % 40-54 [facility] Hemoglobin measurementOrdere d By: Renard Burgos on 10-14-2024 Hemoglobin (Bld) [Mass/Vol] 13.9 g/dL 13.0-16.5 [facility] Immature granulocytes/100 WB C Auto (Bld)Ordered By: Renard Burgos on 10-14-2024 Immature granulocytes/100 WBC (Bld) 0.300 % 0.0-0.9 [facility] Comment on above: IG% - Immature Granu locytes (promyelocytes, myelocytes and metamyelocytes) > 1% indicates that a LEFT SHIFT is Present. MCV (mean corpuscular volume ) determinationOrdered By: Renard Burgos on 10-14-2024 MCV (RBC) [Entitic vol] 91.2 fL 80-94 [facility] Mean corpuscular hemoglobin (MCH) determinationOrdered By: Renard Burgos on 10-14-2024 MCH (RBC) [Entitic mass] 29.7 pg 27.0-32.0 [facility] Mean corpuscular hemoglobin concentration (MCHC) determinationOrdered By: Renard Burgos on 10-14-2024 MCHC (RBC) [Mass/Vol] 32.6 g/dL 32-36 [facility] Mean platelet volume determi nationOrdered By: Renard Burgos on 10-14-2024 Platelet mean volume (Bld) [Entitic vol] 11.1 fL 6.2-12.0 [facility] Monocyte percentageOrdered B y: Renard Burgos on 10-14-2024 Monocytes/100 WBC (Bld) 8.6 % 0-10 [facility] Neutrophil percentageOrdered By: Renard Burgos on 10-14-2024 Neutrophils/100 WBC (Bld) 65.4 % 47-70 [facility] Nucleated red blood cell per centageOrdered By: Renard Burgos on 10-14-2024 Nucleated RBC/100 WBC (Bld) [Ratio] 0 % 0-5 [facility] Platelet countOrdered By: Garrick Bhatt on 10-14-2024 Platelets (Bld) [#/Vol] 232 10*3/uL 150-450 [facility] RBC Auto (Bld) [#/Vol]Ordere d By: Renard Burgos on 10-14-2024 RBC (Bld) [#/Vol] 4.68 10*6/uL 4.6-6.2 [facility] White blood cell (WBC) count Ordered By: Renard Burgos on 10-14-2024 WBC (Bld) [#/Vol] 7.3 10*3/uL 4.4-11.0 [facility] Absolute lymphocyte countOrd ered By: Renard Burgos on 10-07-2024 Lymphocytes Auto (Unsp spec) [#/Vol] 2.20 10*3/uL 0.83-4.51 [facility] Absolute neutrophil countOrd ered By: Renard Burgos on 10-07-2024 Neutrophils (Bld) [#/Vol] 5.1 10*3/uL 2.0-7.7 [facility] Automated lymphocyte count a s percentage of total leukocytesOrdered By: Renard Burgos on 10-07-2024 Lymphocytes/100 WBC Auto (Unsp spec) 27.2 % 19-41 [facility] Basophil percentageOrdered B y: Renard Burgos on 10-07-2024 Basophils/100 WBC (Bld) 0.5 % 0-1 [facility] CBC W/Diff, Automatedon Absolute Lymph 2.20 X10 3/uL Normal 0.83-4.51 [facility] Comment on above: Order Comment: 109-1 Performed By: #### L 100.0100 ####[facility] [address] [place], [address] Absolute Neut 5.1 X10 3/uL Normal 2.0-7.7 [facility] Comment on above: Order Comment: 109-1 Performed By: #### L 100.0100 ####[facility] [address] [place], [address] Basophils/100 WBC (Bld) 0.5 % Normal 0-1 [facility] Comment on above: Order Comment: 109-1 Performed By: #### L 100.0100 ####[facility] [address] [place], [address] Eosinophils/100 WBC (Bld) 0.9 % Normal 0-5 [facility] Comment on above: Order Comment: 109-1 Performed By: #### L 100.0100 ####[facility] [address] [place], [address] Erythrocyte distribution width (RBC) [Ratio] 13.2 % Normal 11.6-14.6 [facility] Comment on above: Order Comment: 109-1 Performed By: #### L 100.0100 ####[facility] [address] [place], [address] Hematocrit (Bld) [Volume fraction] 40.8 % Normal 40-54 [facility] Comment on above: Order Comment: 109-1 Performed By: #### L 100.0100 ####[facility] [address] [place], [address] Hemoglobin (Bld) [Mass/Vol] 13.8 g/dL Normal 13.0-16.5 [facility] Comment on above: Order Comment: 109-1 Performed By: #### L 100.0100 ####[facility] [address] [place], [address] IG% 0.200 Normal 0.0-0.9 [facility] Comment on above: Order Comment: 109-1 Result Comment: IG% - Immature Granulocytes (promyelocytes, myelocytes andmetamyelocytes) > 1% indicates that a LEFT SHIFT is Present. Performed By: #### L 100.0100 ####[facility] [address] [place], [address] Lymphocytes/100 WBC (Bld) 27.2 % Normal 19-41 [facility] Comment on above: Order Comment: 109-1 Performed By: #### L 100.0100 ####[facility] [address] [place], [address] MCH (RBC) [Entitic mass] 30.0 pg Normal 27.0-32.0 [facility] Comment on above: Order Comment: 109-1 Performed By: #### L 100.0100 ####[facility] [address] [place], [address] MCHC (RBC) [Mass/Vol] 33.8 g/dL Normal 32-36 [facility] Comment on above: Order Comment: 109-1 Performed By: #### L 100.0100 ####[facility] [address] [place], [address] MCV (RBC) [Entitic vol] 88.7 fL Normal 80-94 [facility] Comment on above: Order Comment: 109-1 Performed By: #### L 100.0100 ####[facility] [address] [place], [address] Monocytes/100 WBC (Bld) 8.4 % Normal 0-10 [facility] Comment on above: Order Comment: 109-1 Performed By: #### L 100.0100 ####[facility] [address] [place], [address] Neutrophils/100 WBC (Bld) 62.8 % Normal 47-70 [facility] Comment on above: Order Comment: 109-1 Performed By: #### L 100.0100 ####[facility] [address] [place], [address] Nucleated RBC (Bld) [#/Vol] 0 10*3/uL Normal 0-5 [facility] Comment on above: Order Comment: 109-1 Performed By: #### L 100.0100 ####[facility] [address] [place], [address] Platelet mean volume (Bld) [Entitic vol] 11.2 fL Normal 6.2-12.0 [facility] Comment on above: Order Comment: 109-1 Performed By: #### L 100.0100 ####[facility] [address] [place], [address] Platelets (Bld) [#/Vol] 214 10*3/uL Normal 150-450 [facility] Comment on above: Order Comment: 109-1 Performed By: #### L 100.0100 ####[facility] [address] [place], [address] RBC (Bld) [#/Vol] 4.60 10*6/uL Normal 4.6-6.2 [facility] Comment on above: Order Comment: 109-1 Performed By: #### L 100.0100 ####[facility] [address] [place], [address] RDW SD 43.0 fl Normal 35.1-43.9 [facility] Comment on above: Order Comment: 109-1 Performed By: #### L 100.0100 ####[facility] [address] [place], [address] WBC (Bld) [#/Vol] 8.1 10*3/uL Normal 4.4-11.0 [facility] Comment on above: Order Comment: 109-1 Performed By: #### L 100.0100 ####[facility] [address] [place], [address] Eosinophil percentageOrdered By: Renard Burgos on 10-07-2024 Eosinophils/100 WBC (Bld) 0.9 % 0-5 [facility] Erythrocyte distribution wid th ratioOrdered By: Renard Burgos on 10-07-2024 Erythrocyte distribution width (RBC) [Ratio] 13.2 % 11.6-14.6 [facility] Erythrocyte distribution wid th standard deviationOrdered By: Renard Burgos on 10-07-2024 Erythrocyte distribution width (RBC) [Ratio] 43.0 fl 35.1-43.9 [facility] Hematocrit Auto (Bld) [Volum e fraction]Ordered By: Renard Burgos on 10-07-2024 Hematocrit (Bld) [Volume fraction] 40.8 % 40-54 [facility] Hemoglobin measurementOrdere d By: Renard Burgos on 10-07-2024 Hemoglobin (Bld) [Mass/Vol] 13.8 g/dL 13.0-16.5 [facility] Immature granulocytes/100 WB C Auto (Bld)Ordered By: Renard Burgos on 10-07-2024 Immature granulocytes/100 WBC (Bld) 0.200 % 0.0-0.9 [facility] Comment on above: IG% - Immature Granu locytes (promyelocytes, myelocytes and metamyelocytes) > 1% indicates that a LEFT SHIFT is Present. MCV (mean corpuscular volume ) determinationOrdered By: Renard Burgos on 10-07-2024 MCV (RBC) [Entitic vol] 88.7 fL 80-94 [facility] Mean corpuscular hemoglobin (MCH) determinationOrdered By: Renard Burgos on 10-07-2024 MCH (RBC) [Entitic mass] 30.0 pg 27.0-32.0 [facility] Mean corpuscular hemoglobin concentration (MCHC) determinationOrdered By: Renard Burgos on 10-07-2024 MCHC (RBC) [Mass/Vol] 33.8 g/dL 32-36 [facility] Mean platelet volume determi nationOrdered By: Renard Burgos on 10-07-2024 Platelet mean volume (Bld) [Entitic vol] 11.2 fL 6.2-12.0 [facility] Monocyte percentageOrdered B y: Renard Burgos on 10-07-2024 Monocytes/100 WBC (Bld) 8.4 % 0-10 [facility] Neutrophil percentageOrdered By: Renard Burgos on 10-07-2024 Neutrophils/100 WBC (Bld) 62.8 % 47-70 [facility] Nucleated red blood cell per centageOrdered By: Renard Burgos on 10-07-2024 Nucleated RBC/100 WBC (Bld) [Ratio] 0 % 0-5 [facility] Platelet countOrdered By: Garrick Bhatt on 10-07-2024 Platelets (Bld) [#/Vol] 214 10*3/uL 150-450 [facility] RBC Auto (Bld) [#/Vol]Ordere d By: Renard Burgos on 10-07-2024 RBC (Bld) [#/Vol] 4.60 10*6/uL 4.6-6.2 [facility] White blood cell (WBC) count Ordered By: Renard Burgos on 10-07-2024 WBC (Bld) [#/Vol] 8.1 10*3/uL 4.4-11.0 [facility] Absolute lymphocyte countOrd ered By: Renard Burgos on 09-30-2024 Lymphocytes Auto (Unsp spec) [#/Vol] 3.13 10*3/uL 0.83-4.51 [facility] Absolute neutrophil countOrd ered By: Renard Burgos on 09-30-2024 Neutrophils (Bld) [#/Vol] 5.6 10*3/uL 2.0-7.7 [facility] Automated lymphocyte count a s percentage of total leukocytesOrdered By: Renard Burgos on 09-30-2024 Lymphocytes/100 WBC Auto (Unsp spec) 31.7 % 19-41 [facility] Basophil percentageOrdered B y: Renard Burgos on 09-30-2024 Basophils/100 WBC (Bld) 0.6 % 0-1 [facility] CBC W/Diff, Automatedon Absolute Lymph 3.13 X10 3/uL Normal 0.83-4.51 [facility] Comment on above: Order Comment: 109-1 Performed By: #### L 100.0100 ####[facility] [address] [facility] [place], [address] Absolute Neut 5.6 X10 3/uL Normal 2.0-7.7 [facility] Comment on above: Order Comment: 109-1 Performed By: #### L 100.0100 ####[facility] [address] [place], [address] Basophils/100 WBC (Bld) 0.6 % Normal 0-1 [facility] Comment on above: Order Comment: 109-1 Performed By: #### L 100.0100 ####[facility] [address] [place], [address] Eosinophils/100 WBC (Bld) 0.7 % Normal 0-5 [facility] Comment on above: Order Comment: 109-1 Performed By: #### L 100.0100 ####[facility] [address] [place], [address] Erythrocyte distribution width (RBC) [Ratio] 13.0 % Normal 11.6-14.6 [facility] Comment on above: Order Comment: 109-1 Performed By: #### L 100.0100 ####[facility] [address] [place], [address] Hematocrit (Bld) [Volume fraction] 46.9 % Normal 40-54 [facility] Comment on above: Order Comment: 109-1 Performed By: #### L 100.0100 ####[facility] [address] [place], [address] Hemoglobin (Bld) [Mass/Vol] 15.3 g/dL Normal 13.0-16.5 [facility] Comment on above: Order Comment: 109-1 Performed By: #### L 100.0100 ####[facility] [address] [place], [address] IG% 0.300 Normal 0.0-0.9 [facility] Comment on above: Order Comment: 109-1 Result Comment: IG% - Immature Granulocytes (promyelocytes, myelocytes andmetamyelocytes) > 1% indicates that a LEFT SHIFT is Present. Performed By: #### L 100.0100 ####[facility] [address] [place], [address] Lymphocytes/100 WBC (Bld) 31.7 % Normal 19-41 [facility] Comment on above: Order Comment: 109-1 Performed By: #### L 100.0100 ####[facility] [address] [place], [address] MCH (RBC) [Entitic mass] 29.7 pg Normal 27.0-32.0 [facility] Comment on above: Order Comment: 109-1 Performed By: #### L 100.0100 ####[facility] [address] [place], [address] MCHC (RBC) [Mass/Vol] 32.6 g/dL Normal 32-36 [facility] Comment on above: Order Comment: 109-1 Performed By: #### L 100.0100 ####[facility] [address] [place], [address] MCV (RBC) [Entitic vol] 91.1 fL Normal 80-94 [facility] Comment on above: Order Comment: 109-1 Performed By: #### L 100.0100 ####[facility] [address] [place], [address] Monocytes/100 WBC (Bld) 10.4 % High 0-10 [facility] Comment on above: Order Comment: 109-1 Performed By: #### L 100.0100 ####[facility] [address] [place], [address] Neutrophils/100 WBC (Bld) 56.3 % Normal 47-70 [facility] Comment on above: Order Comment: 109-1 Performed By: #### L 100.0100 ####[facility] [address] [place], [address] Nucleated RBC (Bld) [#/Vol] 0 10*3/uL Normal 0-5 [facility] Comment on above: Order Comment: 109-1 Performed By: #### L 100.0100 ####[facility] [address] [place], [address] Platelet mean volume (Bld) [Entitic vol] 11.7 fL Normal 6.2-12.0 [facility] Comment on above: Order Comment: 109-1 Performed By: #### L 100.0100 ####[facility] [address] [place], [address] Platelets (Bld) [#/Vol] 208 10*3/uL Normal 150-450 [facility] Comment on above: Order Comment: 109-1 Performed By: #### L 100.0100 ####[facility] [address] [place], [address] RBC (Bld) [#/Vol] 5.15 10*6/uL Normal 4.6-6.2 [facility] Comment on above: Order Comment: 109-1 Performed By: #### L 100.0100 ####[facility] [address] [place], [address] RDW SD 42.7 fl Normal 35.1-43.9 [facility] Comment on above: Order Comment: 109-1 Performed By: #### L 100.0100 ####[facility] [address] [place], [address] WBC (Bld) [#/Vol] 9.9 10*3/uL Normal 4.4-11.0 [facility] Comment on above: Order Comment: 109-1 Performed By: #### L 100.0100 ####[facility] [address] [place], [address] Eosinophil percentageOrdered By: Renard Burgos on 09-30-2024 Eosinophils/100 WBC (Bld) 0.7 % 0-5 [facility] Erythrocyte distribution wid th ratioOrdered By: Renard Burgos on 09-30-2024 Erythrocyte distribution width (RBC) [Ratio] 13.0 % 11.6-14.6 [facility] Erythrocyte distribution wid th standard deviationOrdered By: Renard Burgos on 09-30-2024 Erythrocyte distribution width (RBC) [Ratio] 42.7 fl 35.1-43.9 [facility] Hematocrit Auto (Bld) [Volum e fraction]Ordered By: Renard Burgos on 09-30-2024 Hematocrit (Bld) [Volume fraction] 46.9 % 40-54 [facility] Hemoglobin measurementOrdere d By: Renard Burgos on 09-30-2024 Hemoglobin (Bld) [Mass/Vol] 15.3 g/dL 13.0-16.5 [facility] Immature granulocytes/100 WB C Auto (Bld)Ordered By: Renard Burgos on 09-30-2024 Immature granulocytes/100 WBC (Bld) 0.300 % 0.0-0.9 [facility] Comment on above: IG% - Immature Granu locytes (promyelocytes, myelocytes and metamyelocytes) > 1% indicates that a LEFT SHIFT is Present. MCV (mean corpuscular volume ) determinationOrdered By: Renard Burgos on 09-30-2024 MCV (RBC) [Entitic vol] 91.1 fL 80-94 [facility] Mean corpuscular hemoglobin (MCH) determinationOrdered By: Renard Burgos on 09-30-2024 MCH (RBC) [Entitic mass] 29.7 pg 27.0-32.0 [facility] Mean corpuscular hemoglobin concentration (MCHC) determinationOrdered By: Renard Burgos on 09-30-2024 MCHC (RBC) [Mass/Vol] 32.6 g/dL 32-36 [facility] Mean platelet volume determi nationOrdered By: Renard Burgos on 09-30-2024 Platelet mean volume (Bld) [Entitic vol] 11.7 fL 6.2-12.0 [facility] Monocyte percentageOrdered B y: Renard Burgos on 09-30-2024 Monocytes/100 WBC (Bld) 10.4 % High 0-10 [facility] Neutrophil percentageOrdered By: Renard Burgos on 09-30-2024 Neutrophils/100 WBC (Bld) 56.3 % 47-70 [facility] Nucleated red blood cell per centageOrdered By: Renard Burgos on 09-30-2024 Nucleated RBC/100 WBC (Bld) [Ratio] 0 % 0-5 [facility] Platelet countOrdered By: Garrick Bhatt on 09-30-2024 Platelets (Bld) [#/Vol] 208 10*3/uL 150-450 [facility] RBC Auto (Bld) [#/Vol]Ordere d By: Renard Burgos on 09-30-2024 RBC (Bld) [#/Vol] 5.15 10*6/uL 4.6-6.2 [facility] White blood cell (WBC) count Ordered By: Renard Burgos on 09-30-2024 WBC (Bld) [#/Vol] 9.9 10*3/uL 4.4-11.0 [facility] Absolute lymphocyte countOrd ered By: Renard Burgos on 09-24-2024 Lymphocytes Auto (Unsp spec) [#/Vol] 1.97 10*3/uL 0.83-4.51 [facility] Absolute neutrophil countOrd ered By: Renard Burgos on 09-24-2024 Neutrophils (Bld) [#/Vol] 6.8 10*3/uL 2.0-7.7 [facility] Automated blood erythrocyte countOrdered By: Renard Burgos on 09-24-2024 RBC (Bld) [#/Vol] 4.48 10*6/uL Low 4.6-6.2 [facility] Comment on above: Order Comment: 109 Performed By: #### L 100.0100 ####[facility] [address] [place], [place], [id number] Automated blood hematocrit ( percentage)Ordered By: Renard Burgos on 09-24-2024 Hematocrit (Bld) [Volume fraction] 40.4 % Normal 40-54 [facility] Comment on above: Order Comment: 109 Performed By: #### L 100.0100 ####[facility] [address] [place], [place], [address] Automated lymphocyte count a s percentage of total leukocytesOrdered By: Renard Burgos on 09-24-2024 Lymphocytes/100 WBC Auto (Unsp spec) 20.5 % 19-41 [facility] Basophil percentageOrdered B y: Renard Burgos on 09-24-2024 Basophils/100 WBC (Bld) 0.5 % Normal 0-1 [facility] Comment on above: Order Comment: 109 Performed By: #### L 100.0100 ####[facility] [address] [place], [place], [id number] CBC W/Diff, Automatedon 08-30 Absolute Lymph 1.97 X10 3/uL Normal 0.83-4.51 [facility] Comment on above: Order Comment: 109 Performed By: #### L 100.0100 ####[facility] [address] [place], [address] Absolute Neut 6.8 X10 3/uL Normal 2.0-7.7 [facility] Comment on above: Order Comment: 109 Performed By: #### L 100.0100 ####[facility] [address] [place], [address] IG% 0.300 Normal 0.0-0.9 [facility] Comment on above: Order Comment: 109 Result Comment: IG% - Immature Granulocytes (promyelocytes, myelocytes andmetamyelocytes) > 1% indicates that a LEFT SHIFT is Present. Performed By: #### L 100.0100 ####[facility] [address] [place], [address] Lymphocytes/100 WBC (Bld) 20.5 % Normal 19-41 [facility] Comment on above: Order Comment: 109 Performed By: #### L 100.0100 ####[facility] [address] [place], [address] Nucleated RBC (Bld) [#/Vol] 0 10*3/uL Normal 0-5 [facility] Comment on above: Order Comment: 109 Performed By: #### L 100.0100 ####[facility] [address] [place], [address] RDW SD 42.9 fl Normal 35.1-43.9 [facility] Comment on above: Order Comment: 109 Performed By: #### L 100.0100 ####[facility] [address] [place], [address] Eosinophil percentageOrdered By: Renard Burgos on 09-24-2024 Eosinophils/100 WBC (Bld) 0.5 % Normal 0-5 [facility] Comment on above: Order Comment: 109 Performed By: #### L 100.0100 ####[facility] [address] [place], [place], [phone]) Erythrocyte distribution wid th ratioOrdered By: Renard Burgos on 09-24-2024 Erythrocyte distribution width (RBC) [Ratio] 13.1 % Normal 11.6-14.6 [facility] Comment on above: Order Comment: 109 Performed By: #### L 100.0100 ####[facility] [address] [place], [place], [phone] Erythrocyte distribution wid th standard deviationOrdered By: Renard Burgos on 09-24-2024 Erythrocyte distribution width (RBC) [Ratio] 42.9 fl 35.1-43.9 [facility] Hemoglobin measurementOrdere d By: Renard Burgos on 09-24-2024 Hemoglobin (Bld) [Mass/Vol] 13.4 g/dL Normal 13.0-16.5 [facility] Comment on above: Order Comment: 109 Performed By: #### L 100.0100 ####[facility] [address] [place], [place], [phone] Immature granulocytes/100 WB C Auto (Bld)Ordered By: Renard Burgos on 09-24-2024 Immature granulocytes/100 WBC (Bld) 0.300 % 0.0-0.9 [facility] Comment on above: IG% - Immature Granu locytes (promyelocytes, myelocytes and metamyelocytes) > 1% indicates that a LEFT SHIFT is Present. MCV (mean corpuscular volume ) determinationOrdered By: Renard Burgos on 09-24-2024 MCV (RBC) [Entitic vol] 90.2 fL Normal 80-94 [facility] Comment on above: Order Comment: 109 Performed By: #### L 100.0100 ####[facility] [address] [place], [place], [phone] Mean corpuscular hemoglobin (MCH) determinationOrdered By: Renard Burgos on 09-24-2024 MCH (RBC) [Entitic mass] 29.9 pg Normal 27.0-32.0 [facility] Comment on above: Order Comment: 109 Performed By: #### L 100.0100 ####[facility] [address] [place], [address] Mean corpuscular hemoglobin concentration (MCHC) determinationOrdered By: Renard Burgos on 09-24-2024 MCHC (RBC) [Mass/Vol] 33.2 g/dL Normal 32-36 [facility] Comment on above: Order Comment: 109 Performed By: #### L 100.0100 ####[facility] [address] [place], [address] Mean platelet volume determi nationOrdered By: Renard Burgos on 09-24-2024 Platelet mean volume (Bld) [Entitic vol] 11.3 fL Normal 6.2-12.0 [facility] Comment on above: Order Comment: 109 Performed By: #### L 100.0100 ####[facility] [address] [place], [address] Monocyte percentageOrdered B y: Renard Burgos on 09-24-2024 Monocytes/100 WBC (Bld) 7.2 % Normal 0-10 [facility] Comment on above: Order Comment: 109 Performed By: #### L 100.0100 ####[facility] [address] [place], [address] Neutrophil percentageOrdered By: Renard Burgos on 09-24-2024 Neutrophils/100 WBC (Bld) 71.0 % High 47-70 [facility] Comment on above: Order Comment: 109 Performed By: #### L 100.0100 ####[facility] [address] [place], [address] Nucleated red blood cell per centageOrdered By: Renard Burgos on 09-24-2024 Nucleated RBC/100 WBC (Bld) [Ratio] 0 % 0-5 [facility] Platelet countOrdered By: Garrick Bhatt on 09-24-2024 Platelets (Bld) [#/Vol] 187 10*3/uL Normal 150-450 [facility] Comment on above: Order Comment: 109 Performed By: #### L 100.0100 ####[facility] [address] [place], [place], [phone] White blood cell (WBC) count Ordered By: Renard Burgos on 09-24-2024 WBC (Bld) [#/Vol] 9.6 10*3/uL Normal 4.4-11.0 [facility] Comment on above: Order Comment: 109 Performed By: #### L 100.0100 ####[facility] [address] [place], [place], [phone] Absolute lymphocyte countOrd ered By: Renard Burgos on 09-16-2024 Lymphocytes Auto (Unsp spec) [#/Vol] 2.44 10*3/uL 0.83-4.51 [facility] Absolute neutrophil countOrd ered By: Renard Burgos on 09-16-2024 Neutrophils (Bld) [#/Vol] 5.5 10*3/uL 2.0-7.7 [facility] Automated lymphocyte count a s percentage of total leukocytesOrdered By: Renard Burgos on 09-16-2024 Lymphocytes/100 WBC Auto (Unsp spec) 27.7 % - [facility] Basophil percentageOrdered B y: Renard Burgos on 09-16-2024 Basophils/100 WBC (Bld) 0.8 % 0-1 [facility] CBC W/Diff, Automatedon 08-29 Absolute Lymph 2.44 X10 3/uL Normal 0.83-4.51 [facility] Comment on above: Order Comment: 109.1 Performed By: #### L 100.0100 ####[facility] [address] [place], [place], [phone] Absolute Neut 5.5 X10 3/uL Normal 2.0-7.7 [facility] Comment on above: Order Comment: 109.1 Performed By: #### L 100.0100 ####[facility] [address] [place], [address] Basophils/100 WBC (Bld) 0.8 % Normal 0-1 [facility] Comment on above: Order Comment: 109.1 Performed By: #### L 100.0100 ####[facility] [address] [place], [address] Eosinophils/100 WBC (Bld) 0.7 % Normal 0-5 [facility] Comment on above: Order Comment: 109.1 Performed By: #### L 100.0100 ####[facility] [address] [place], [address] Erythrocyte distribution width (RBC) [Ratio] 13.1 % Normal 11.6-14.6 [facility] Comment on above: Order Comment: 109.1 Performed By: #### L 100.0100 ####[facility] [address] [place], [address] Hematocrit (Bld) [Volume fraction] 46.8 % Normal 40-54 [facility] Comment on above: Order Comment: 109.1 Performed By: #### L 100.0100 ####[facility] [address] [place], [address] Hemoglobin (Bld) [Mass/Vol] 15.4 g/dL Normal 13.0-16.5 [facility] Comment on above: Order Comment: 109.1 Performed By: #### L 100.0100 ####[facility] [address] [place], [address] IG% 0.200 Normal 0.0-0.9 [facility] Comment on above: Order Comment: 109.1 Result Comment: IG% - Immature Granulocytes (promyelocytes, myelocytes andmetamyelocytes) > 1% indicates that a LEFT SHIFT is Present. Performed By: #### L 100.0100 ####[facility] [address] [place], [address] Lymphocytes/100 WBC (Bld) 27.7 % Normal 19-41 [facility] Comment on above: Order Comment: 109.1 Performed By: #### L 100.0100 ####[facility] [address] [place], [address] MCH (RBC) [Entitic mass] 30.1 pg Normal 27.0-32.0 [facility] Comment on above: Order Comment: 109.1 Performed By: #### L 100.0100 ####[facility] [address] [place], [address] MCHC (RBC) [Mass/Vol] 32.9 g/dL Normal 32-36 [facility] Comment on above: Order Comment: 109.1 Performed By: #### L 100.0100 ####[facility] [address] [place], [address] MCV (RBC) [Entitic vol] 91.4 fL Normal 80-94 [facility] Comment on above: Order Comment: 109.1 Performed By: #### L 100.0100 ####[facility] [address] [place], [address] Monocytes/100 WBC (Bld) 8.5 % Normal 0-10 [facility] Comment on above: Order Comment: 109.1 Performed By: #### L 100.0100 ####[facility] [address] [place], [address] Neutrophils/100 WBC (Bld) 62.1 % Normal 47-70 [facility] Comment on above: Order Comment: 109.1 Performed By: #### L 100.0100 ####[facility] [address] [place], [address] Nucleated RBC (Bld) [#/Vol] 0 10*3/uL Normal 0-5 [facility] Comment on above: Order Comment: 109.1 Performed By: #### L 100.0100 ####[facility] [address] [place], [address] Platelet mean volume (Bld) [Entitic vol] 10.6 fL Normal 6.2-12.0 [facility] Comment on above: Order Comment: 109.1 Performed By: #### L 100.0100 ####[facility] [address] [place], [address] Platelets (Bld) [#/Vol] 190 10*3/uL Normal 150-450 [facility] Comment on above: Order Comment: 109.1 Performed By: #### L 100.0100 ####[facility] [address] [place], [address] RBC (Bld) [#/Vol] 5.12 10*6/uL Normal 4.6-6.2 [facility] Comment on above: Order Comment: 109.1 Performed By: #### L 100.0100 ####[facility] [address] [place], [address] RDW SD 43.3 fl Normal 35.1-43.9 [facility] Comment on above: Order Comment: 109.1 Performed By: #### L 100.0100 ####[facility] [address] [place], [address] WBC (Bld) [#/Vol] 8.8 10*3/uL Normal 4.4-11.0 [facility] Comment on above: Order Comment: 109.1 Performed By: #### L 100.0100 ####[facility] [address] [place], [address] Eosinophil percentageOrdered By: Renard Burgos on 09-16-2024 Eosinophils/100 WBC (Bld) 0.7 % 0-5 [facility] Erythrocyte distribution wid th ratioOrdered By: Renard Burgos on 09-16-2024 Erythrocyte distribution width (RBC) [Ratio] 13.1 % 11.6-14.6 [facility] Erythrocyte distribution wid th standard deviationOrdered By: Renard Burgos on 09-16-2024 Erythrocyte distribution width (RBC) [Ratio] 43.3 fl 35.1-43.9 [facility] Hematocrit Auto (Bld) [Volum e fraction]Ordered By: Renard Burgos on 09-16-2024 Hematocrit (Bld) [Volume fraction] 46.8 % 40-54 [facility] Hemoglobin measurementOrdere d By: Renard Burgos on 09-16-2024 Hemoglobin (Bld) [Mass/Vol] 15.4 g/dL 13.0-16.5 [facility] Immature granulocytes/100 WB C Auto (Bld)Ordered By: Renard Burgos on 09-16-2024 Immature granulocytes/100 WBC (Bld) 0.200 % 0.0-0.9 [facility] Comment on above: IG% - Immature Granu locytes (promyelocytes, myelocytes and metamyelocytes) > 1% indicates that a LEFT SHIFT is Present. MCV (mean corpuscular volume ) determinationOrdered By: Renard Burgos on 09-16-2024 MCV (RBC) [Entitic vol] 91.4 fL 80-94 [facility] Mean corpuscular hemoglobin (MCH) determinationOrdered By: Renard Burgos on 09-16-2024 MCH (RBC) [Entitic mass] 30.1 pg 27.0-32.0 [facility] Mean corpuscular hemoglobin concentration (MCHC) determinationOrdered By: Renard Burgos on 09-16-2024 MCHC (RBC) [Mass/Vol] 32.9 g/dL 32-36 [facility] Mean platelet volume determi nationOrdered By: Renard Burgos on 09-16-2024 Platelet mean volume (Bld) [Entitic vol] 10.6 fL 6.2-12.0 [facility] Monocyte percentageOrdered B y: Renard Burgos on 09-16-2024 Monocytes/100 WBC (Bld) 8.5 % 0-10 [facility] Neutrophil percentageOrdered By: Renard Burgos on 09-16-2024 Neutrophils/100 WBC (Bld) 62.1 % 47-70 [facility] Nucleated red blood cell per centageOrdered By: Renard Burgos on 09-16-2024 Nucleated RBC/100 WBC (Bld) [Ratio] 0 % 0-5 [facility] Platelet countOrdered By: Garrick Bhatt on 09-16-2024 Platelets (Bld) [#/Vol] 190 10*3/uL 150-450 [facility] RBC Auto (Bld) [#/Vol]Ordere d By: Renard Burgos on 09-16-2024 RBC (Bld) [#/Vol] 5.12 10*6/uL 4.6-6.2 [facility] White blood cell (WBC) count Ordered By: Renard Burgos on 09-16-2024 WBC (Bld) [#/Vol] 8.8 10*3/uL 4.4-11.0 [facility] Anion gap in Serum or Plasma Ordered By: Renard Burgos on 09-11-2024 Anion gap [Moles/Vol] 11 mmol/L 5-15 [facility] Automated blood erythrocyte countOrdered By: Renard Burgos on 09-11-2024 RBC (Bld) [#/Vol] 4.67 10*6/uL Normal 4.6-6.2 [facility] Comment on above: Order Comment: 109-1 Performed By: #### L 100.0500, L500.2500 ####[facility] [address] [place], [place], [phone] Automated blood hematocrit ( percentage)Ordered By: Renard Burgos on 09-11-2024 Hematocrit (Bld) [Volume fraction] 42.7 % Normal 40-54 [facility] Comment on above: Order Comment: 109-1 Performed By: #### L 100.0500, L500.2500 ####[facility] [address] [facility] [place], [place], [phone] BUN/creatinine ratioOrdered By: Renard Burgos on 09-11-2024 Urea nitrogen/Creatinine [Mass ratio] 23.0 mg/mg High 10-20 [facility] Basic Metabolic Profile (BMP )on 09-11-2024 BUN/CRE 23.0 RATIO High 10-20 [facility] Comment on above: Order Comment: 109-1 Performed By: #### L 100.0500, L500.2500 ####[facility] [address] [place], [address] Calcium [Mass/Vol] 8.7 mg/dL Normal 7.6-11.0 [facility] Comment on above: Order Comment: 109-1 Performed By: #### L 100.0500, L500.2500 ####[facility] [address] [place], [address] Chloride [Moles/Vol] 104 mmol/L Normal 98-108 [facility] Comment on above: Order Comment: 109-1 Performed By: #### L 100.0500, L500.2500 ####[facility] [address] [place], [address] CO2 [Moles/Vol] 25.9 mmol/L Normal 21.0-32.0 [facility] Comment on above: Order Comment: 109-1 Performed By: #### L 100.0500, L500.2500 ####[facility] [address] [place], [address] Creatinine [Mass/Vol] 0.58 mg/dL Low 0.70-1.20 [facility] Comment on above: Order Comment: 109-1 Performed By: #### L 100.0500, L500.2500 ####[facility] [address] [place], [address] GAP 11 Normal 5-15 [facility] Comment on above: Order Comment: 109-1 Performed By: #### L 100.0500, L500.2500 ####[facility] [address] [place], [address] GFR/1.73 sq M.predicted among non-blacks MDRD (S/P/Bld) [Vol rate/Area] 107 mL/min/{1.73_m2} Normal >60 [facility] Comment on above: Order Comment: 109-1 Result Comment: mL/m in/1.73m2 CKD-EPI Creatinine Equation (2020) Performed By: #### L 100.0500, L500.2500 ####[facility] [address] [place], [address] Glucose [Mass/Vol] 113 mg/dL High 70-99 [facility] Comment on above: Order Comment: 109-1 Performed By: #### L 100.0500, L500.2500 ####[facility] [address] [place], [address] Potassium [Moles/Vol] 3.8 mmol/L Normal 3.3-5.1 [facility] Comment on above: Order Comment: 109-1 Performed By: #### L 100.0500, L500.2500 ####[facility] [address] [place], [address] Sodium [Moles/Vol] 141 mmol/L Normal 133-145 [facility] Comment on above: Order Comment: 109-1 Performed By: #### L 100.0500, L500.2500 ####[facility] [address] [place], [address] Urea nitrogen [Mass/Vol] 13 mg/dL Normal 4-19 [facility] Comment on above: Order Comment: 109-1 Performed By: #### L 100.0500, L500.2500 ####[facility] [address] [place], [address] CBC-Complete Blood Cnt No Di ffon 09-11-2024 RDW SD 43.7 fl Normal 35.1-43.9 [facility] Comment on above: Order Comment: 109-1 Performed By: #### L 100.0500, L500.2500 ####[facility] [address] [place], [address] Carbon dioxide, total [Moles /volume] in Central venous bloodOrdered By: Renard Burgos on 09-11-2024 CO2 [Moles/Vol] 25.9 mmol/L 21.0-32.0 [facility] Chloride assayOrdered By: Garrick Bhatt on 09-11-2024 Chloride [Moles/Vol] 104 mmol/L 98-108 [facility] Erythrocyte distribution wid th ratioOrdered By: Renard Burgos on 09-11-2024 Erythrocyte distribution width (RBC) [Ratio] 13.2 % Normal 11.6-14.6 [facility] Comment on above: Order Comment: 109-1 Performed By: #### L 100.0500, L500.2500 ####[facility] [address] [place], [place], [id number] Erythrocyte distribution wid th standard deviationOrdered By: Renard Burgos on 09-11-2024 Erythrocyte distribution width (RBC) [Ratio] 43.7 fl 35.1-43.9 [facility] Glomerular filtration rate ( GFR) estimation/1.73 sq m using serum, plasma, or whole bOrdered By: Renard Burgos on 09-11-2024 GFR/1.73 sq M.predicted among non-blacks MDRD (S/P/Bld) [Vol rate/Area] 107 mL/min/{1.73_m2} >60 [facility] Comment on above: mL/min/1.73m2 CKD-EP I Creatinine Equation (2020) Hemoglobin measurementOrdere d By: Renard Burgos on 09-11-2024 Hemoglobin (Bld) [Mass/Vol] 14.0 g/dL Normal 13.0-16.5 [facility] Comment on above: Order Comment: 109-1 Performed By: #### L 100.0500, L500.2500 ####[facility] [address] [place], [place], [id number] MCV (mean corpuscular volume ) determinationOrdered By: Reanrd Burgos on 09-11-2024 MCV (RBC) [Entitic vol] 91.4 fL Normal 80-94 [facility] Comment on above: Order Comment: 109-1 Performed By: #### L 100.0500, L500.2500 ####[facility] [address] [place], [address] Mean corpuscular hemoglobin (MCH) determinationOrdered By: Renard Burgos on 09-11-2024 MCH (RBC) [Entitic mass] 30.0 pg Normal 27.0-32.0 [facility] Comment on above: Order Comment: 109-1 Performed By: #### L 100.0500, L500.2500 ####[facility] [address] [place], [address] Mean corpuscular hemoglobin concentration (MCHC) determinationOrdered By: Renard Burgos on 09-11-2024 MCHC (RBC) [Mass/Vol] 32.8 g/dL Normal 32-36 [facility] Comment on above: Order Comment: 109-1 Performed By: #### L 100.0500, L500.2500 ####[facility] [address] [place], [address] Mean platelet volume determi nationOrdered By: Renard Burgos on 09-11-2024 Platelet mean volume (Bld) [Entitic vol] 11.3 fL Normal 6.2-12.0 [facility] Comment on above: Order Comment: 109-1 Performed By: #### L 100.0500, L500.2500 ####[facility] [address] [place], [address] Platelet countOrdered By: Garrick Bhatt on 09-11-2024 Platelets (Bld) [#/Vol] 191 10*3/uL Normal 150-450 [facility] Comment on above: Order Comment: 109-1 Performed By: #### L 100.0500, L500.2500 ####[facility] [address] [place], [address] Potassium measurement (mass/ volume)Ordered By: Renard Burgos on 09-11-2024 Potassium (Unsp spec) [Mass/Vol] 3.8 mmol/L 3.3-5.1 [facility] Serum creatinine measurement (mass/volume)Ordered By: Renard Burgos on 09-11-2024 Creatinine [Mass/Vol] 0.58 mg/dL Low 0.70-1.20 [facility] Serum glucose measurement (m ass/volume)Ordered By: Renard Burgos on 09-11-2024 Glucose [Mass/Vol] 113 mg/dL High 70-99 [facility] Serum or plasma calcium gordy urement (mass/volume)Ordered By: Renard Burgos on 09-11-2024 Calcium [Mass/Vol] 8.7 mg/dL 7.6-11.0 [facility] Serum or plasma urea nitroge n measurement (mass/volume)Ordered By: Renard Burgos on 09-11-2024 Urea nitrogen [Mass/Vol] 13 mg/dL 4-19 [facility] Sodium levelOrdered By: Lamine Burgos on 09-11-2024 Sodium [Moles/Vol] 141 mmol/L 133-145 [facility] White blood cell (WBC) count Ordered By: Renard Burgos on 09-11-2024 WBC (Bld) [#/Vol] 7.6 10*3/uL Normal 4.4-11.0 [facility] Comment on above: Order Comment: 109-1 Performed By: #### L 100.0500, L500.2500 ####[facility] [address] [place], [place], [id number] Absolute lymphocyte countOrd ered By: Renard Burgos on 09-09-2024 Lymphocytes Auto (Unsp spec) [#/Vol] 2.24 10*3/uL 0.83-4.51 [facility] Absolute neutrophil countOrd ered By: Renard Burgos on 09-09-2024 Neutrophils (Bld) [#/Vol] 8.7 10*3/uL High 2.0-7.7 [facility] Automated lymphocyte count a s percentage of total leukocytesOrdered By: Renard Burgos on 09-09-2024 Lymphocytes/100 WBC Auto (Unsp spec) 19.1 % 19-41 [facility] Basophil percentageOrdered B y: Renard Burgos on 09-09-2024 Basophils/100 WBC (Bld) 0.4 % 0-1 [facility] CBC W/Diff, Automatedon 08-29 Absolute Lymph 2.24 X10 3/uL Normal 0.83-4.51 [facility] Comment on above: Order Comment: 109-1 Performed By: #### L 100.0100 ####[facility] [address] [place], [address] Absolute Neut 8.7 X10 3/uL High 2.0-7.7 [facility] Comment on above: Order Comment: 109-1 Performed By: #### L 100.0100 ####[facility] [address] [place], [address] Basophils/100 WBC (Bld) 0.4 % Normal 0-1 [facility] Comment on above: Order Comment: 109-1 Performed By: #### L 100.0100 ####[facility] [address] [place], [address] Eosinophils/100 WBC (Bld) 0.5 % Normal 0-5 [facility] Comment on above: Order Comment: 109-1 Performed By: #### L 100.0100 ####[facility] [address] [place], [address] Erythrocyte distribution width (RBC) [Ratio] 13.0 % Normal 11.6-14.6 [facility] Comment on above: Order Comment: 109-1 Performed By: #### L 100.0100 ####[facility] [address] [place], [address] Hematocrit (Bld) [Volume fraction] 44.7 % Normal 40-54 [facility] Comment on above: Order Comment: 109-1 Performed By: #### L 100.0100 ####[facility] [address] [place], [address] Hemoglobin (Bld) [Mass/Vol] 14.6 g/dL Normal 13.0-16.5 [facility] Comment on above: Order Comment: 109-1 Performed By: #### L 100.0100 ####[facility] [address] [place], [address] IG% 0.300 Normal 0.0-0.9 [facility] Comment on above: Order Comment: 109-1 Result Comment: IG% - Immature Granulocytes (promyelocytes, myelocytes andmetamyelocytes) > 1% indicates that a LEFT SHIFT is Present. Performed By: #### L 100.0100 ####[facility] [address] [place], [address] Lymphocytes/100 WBC (Bld) 19.1 % Normal 19-41 [facility] Comment on above: Order Comment: 109-1 Performed By: #### L 100.0100 ####[facility] [address] [place], [address] MCH (RBC) [Entitic mass] 30.1 pg Normal 27.0-32.0 [facility] Comment on above: Order Comment: 109-1 Performed By: #### L 100.0100 ####[facility] [address] [place], [address] MCHC (RBC) [Mass/Vol] 32.7 g/dL Normal 32-36 [facility] Comment on above: Order Comment: 109-1 Performed By: #### L 100.0100 ####[facility] [address] [place], [address] MCV (RBC) [Entitic vol] 92.2 fL Normal 80-94 [facility] [facility] Comment on above: Order Comment: 109-1 Performed By: #### L 100.0100 ####[facility] [address] [place], [address] Monocytes/100 WBC (Bld) 5.1 % Normal 0-10 [facility] Comment on above: Order Comment: 109-1 Performed By: #### L 100.0100 ####[facility] [address] [place], [address] Neutrophils/100 WBC (Bld) 74.6 % High 47-70 [facility] Comment on above: Order Comment: 109-1 Performed By: #### L 100.0100 ####[facility] [address] [place], [address] Nucleated RBC (Bld) [#/Vol] 0 10*3/uL Normal 0-5 [facility] Comment on above: Order Comment: 109-1 Performed By: #### L 100.0100 ####[facility] [address] [place], [address] Platelet mean volume (Bld) [Entitic vol] 11.6 fL Normal 6.2-12.0 [facility] Comment on above: Order Comment: 109-1 Performed By: #### L 100.0100 ####[facility] [address] [place], [address] Platelets (Bld) [#/Vol] 189 10*3/uL Normal 150-450 [facility] Comment on above: Order Comment: 109-1 Performed By: #### L 100.0100 ####[facility] [address] [place], [address] RBC (Bld) [#/Vol] 4.85 10*6/uL Normal 4.6-6.2 [facility] Comment on above: Order Comment: 109-1 Performed By: #### L 100.0100 ####[facility] [address] [place], [address] RDW SD 43.8 fl Normal 35.1-43.9 [facility] Comment on above: Order Comment: 109-1 Performed By: #### L 100.0100 ####[facility] [address] [place], [address] WBC (Bld) [#/Vol] 11.7 10*3/uL High 4.4-11.0 [facility] Comment on above: Order Comment: 109-1 Performed By: #### L 100.0100 ####[facility] [address] [place], [address] Eosinophil percentageOrdered By: Renard Burgos on 09-09-2024 Eosinophils/100 WBC (Bld) 0.5 % 0-5 [facility] Erythrocyte distribution wid th ratioOrdered By: Renard Burgos on 09-09-2024 Erythrocyte distribution width (RBC) [Ratio] 13.0 % 11.6-14.6 [facility] Erythrocyte distribution wid th standard deviationOrdered By: Renard Burgos on 09-09-2024 Erythrocyte distribution width (RBC) [Ratio] 43.8 fl 35.1-43.9 [facility] Hematocrit Auto (Bld) [Volum e fraction]Ordered By: Renard Burgos on 09-09-2024 Hematocrit (Bld) [Volume fraction] 44.7 % 40-54 [facility] Hemoglobin measurementOrdere d By: Renard Burgos on 09-09-2024 Hemoglobin (Bld) [Mass/Vol] 14.6 g/dL 13.0-16.5 [facility] Immature granulocytes/100 WB C Auto (Bld)Ordered By: Renard Burgos on 09-09-2024 Immature granulocytes/100 WBC (Bld) 0.300 % 0.0-0.9 [facility] Comment on above: IG% - Immature Granu locytes (promyelocytes, myelocytes and metamyelocytes) > 1% indicates that a LEFT SHIFT is Present. MCV (mean corpuscular volume ) determinationOrdered By: Renard Burgos on 09-09-2024 MCV (RBC) [Entitic vol] 92.2 fL 80-94 [facility] Mean corpuscular hemoglobin (MCH) determinationOrdered By: Renard Burgos on 09-09-2024 MCH (RBC) [Entitic mass] 30.1 pg 27.0-32.0 [facility] Mean corpuscular hemoglobin concentration (MCHC) determinationOrdered By: Renard Burgos on 09-09-2024 MCHC (RBC) [Mass/Vol] 32.7 g/dL 32-36 [facility] Mean platelet volume determi nationOrdered By: Renard Burgos on 09-09-2024 Platelet mean volume (Bld) [Entitic vol] 11.6 fL 6.2-12.0 [facility] Monocyte percentageOrdered B y: Renard Burgos on 09-09-2024 Monocytes/100 WBC (Bld) 5.1 % 0-10 [facility] Neutrophil percentageOrdered By: Renard Burgos on 09-09-2024 Neutrophils/100 WBC (Bld) 74.6 % High 47-70 [facility] Nucleated red blood cell per centageOrdered By: Renard Burgos on 09-09-2024 Nucleated RBC/100 WBC (Bld) [Ratio] 0 % 0-5 [facility] Platelet countOrdered By: Garrick Bhatt on 09-09-2024 Platelets (Bld) [#/Vol] 189 10*3/uL 150-450 [facility] RBC Auto (Bld) [#/Vol]Ordere d By: Renard Burgos on 09-09-2024 RBC (Bld) [#/Vol] 4.85 10*6/uL 4.6-6.2 [facility] White blood cell (WBC) count Ordered By: Renard Burgos on 09-09-2024 WBC (Bld) [#/Vol] 11.7 10*3/uL High 4.4-11.0 [facility] Absolute lymphocyte countOrd ered By: Renard Burgos on 09-02-2024 Lymphocytes Auto (Unsp spec) [#/Vol] 2.07 10*3/uL 0.83-4.51 [facility] Absolute neutrophil countOrd ered By: Renard Burgos on 09-02-2024 Neutrophils (Bld) [#/Vol] 5.8 10*3/uL 2.0-7.7 [facility] Automated lymphocyte count a s percentage of total leukocytesOrdered By: Renard Burgos on 09-02-2024 Lymphocytes/100 WBC Auto (Unsp spec) 24.4 % 19-41 [facility] Basophil percentageOrdered B y: Renard Burgos on 09-02-2024 Basophils/100 WBC (Bld) 0.6 % 0-1 [facility] CBC W/Diff, Automatedon Absolute Lymph 2.07 X10 3/uL Normal 0.83-4.51 [facility] Comment on above: Order Comment: 109 Performed By: #### L 100.0100 ####[facility] [address] [place], [address] Absolute Neut 5.8 X10 3/uL Normal 2.0-7.7 [facility] Comment on above: Order Comment: 109 Performed By: #### L 100.0100 ####[facility] [address] [place], [address] Basophils/100 WBC (Bld) 0.6 % Normal 0-1 [facility] Comment on above: Order Comment: 109 Performed By: #### L 100.0100 ####[facility] [address] [place], [address] Eosinophils/100 WBC (Bld) 0.7 % Normal 0-5 [facility] Comment on above: Order Comment: 109 Performed By: #### L 100.0100 ####[facility] [address] [place], [address] Erythrocyte distribution width (RBC) [Ratio] 12.8 % Normal 11.6-14.6 [facility] Comment on above: Order Comment: 109 Performed By: #### L 100.0100 ####[facility] [address] [place], [address] Hematocrit (Bld) [Volume fraction] 44.5 % Normal 40-54 [facility] Comment on above: Order Comment: 109 Performed By: #### L 100.0100 ####[facility] [address] [place], [address] Hemoglobin (Bld) [Mass/Vol] 14.9 g/dL Normal 13.0-16.5 [facility] Comment on above: Order Comment: 109 Performed By: #### L 100.0100 ####[facility] [address] [place], [address] IG% 0.400 Normal 0.0-0.9 [facility] Comment on above: Order Comment: 109 Result Comment: IG% - Immature Granulocytes (promyelocytes, myelocytes andmetamyelocytes) > 1% indicates that a LEFT SHIFT is Present. Performed By: #### L 100.0100 ####[facility] [address] [place], [address] Lymphocytes/100 WBC (Bld) 24.4 % Normal 19-41 [facility] Comment on above: Order Comment: 109 Performed By: #### L 100.0100 ####[facility] [address] [place], [address] MCH (RBC) [Entitic mass] 29.9 pg Normal 27.0-32.0 [facility] Comment on above: Order Comment: 109 Performed By: #### L 100.0100 ####[facility] [address] [place], [address] MCHC (RBC) [Mass/Vol] 33.5 g/dL Normal 32-36 [facility] Comment on above: Order Comment: 109 Performed By: #### L 100.0100 ####[facility] [address] [place], [address] MCV (RBC) [Entitic vol] 89.4 fL Normal 80-94 [facility] Comment on above: Order Comment: 109 Performed By: #### L 100.0100 ####[facility] [address] [place], [address] Monocytes/100 WBC (Bld) 5.4 % Normal 0-10 [facility] Comment on above: Order Comment: 109 Performed By: #### L 100.0100 ####[facility] [address] [place], [address] Neutrophils/100 WBC (Bld) 68.5 % Normal 47-70 [facility] Comment on above: Order Comment: 109 Performed By: #### L 100.0100 ####[facility] [address] [place], [address] Nucleated RBC (Bld) [#/Vol] 0 10*3/uL Normal 0-5 [facility] Comment on above: Order Comment: 109 Performed By: #### L 100.0100 ####[facility] [address] [place], [address] Platelet mean volume (Bld) [Entitic vol] 10.7 fL Normal 6.2-12.0 [facility] Comment on above: Order Comment: 109 Performed By: #### L 100.0100 ####[facility] [address] [place], [address] Platelets (Bld) [#/Vol] 189 10*3/uL Normal 150-450 [facility] Comment on above: Order Comment: 109 Performed By: #### L 100.0100 ####[facility] [address] [place], [address] RBC (Bld) [#/Vol] 4.98 10*6/uL Normal 4.6-6.2 [facility] Comment on above: Order Comment: 109 Performed By: #### L 100.0100 ####[facility] [address] [place], [address] RDW SD 41.7 fl Normal 35.1-43.9 [facility] Comment on above: Order Comment: 109 Performed By: #### L 100.0100 ####[facility] [address] [place], [place], [address] WBC (Bld) [#/Vol] 8.5 10*3/uL Normal 4.4-11.0 [facility] Comment on above: Order Comment: 109 Performed By: #### L 100.0100 ####[facility] [address] [facility] [address] [place], [place], [id number] Eosinophil percentageOrdered By: Renard Burgos on 09-02-2024 Eosinophils/100 WBC (Bld) 0.7 % 0-5 [facility] Erythrocyte distribution wid th ratioOrdered By: Renard Burgos on 09-02-2024 Erythrocyte distribution width (RBC) [Ratio] 12.8 % 11.6-14.6 [facility] Erythrocyte distribution wid th standard deviationOrdered By: Renard Burgos on 09-02-2024 Erythrocyte distribution width (RBC) [Ratio] 41.7 fl 35.1-43.9 [facility] Hematocrit Auto (Bld) [Volum e fraction]Ordered By: Renard Burgos on 09-02-2024 Hematocrit (Bld) [Volume fraction] 44.5 % 40-54 [facility] Hemoglobin measurementOrdere d By: Renard Burgos on 09-02-2024 Hemoglobin (Bld) [Mass/Vol] 14.9 g/dL 13.0-16.5 [facility] Immature granulocytes/100 WB C Auto (Bld)Ordered By: Renard Burgos on 09-02-2024 Immature granulocytes/100 WBC (Bld) 0.400 % 0.0-0.9 [facility] Comment on above: IG% - Immature Granu locytes (promyelocytes, myelocytes and metamyelocytes) > 1% indicates that a LEFT SHIFT is Present. MCV (mean corpuscular volume ) determinationOrdered By: Renard Burgos on 09-02-2024 MCV (RBC) [Entitic vol] 89.4 fL 80-94 [facility] Mean corpuscular hemoglobin (MCH) determinationOrdered By: Renard Burgos on 09-02-2024 MCH (RBC) [Entitic mass] 29.9 pg 27.0-32.0 [facility] Mean corpuscular hemoglobin concentration (MCHC) determinationOrdered By: Renard Burgos on 09-02-2024 MCHC (RBC) [Mass/Vol] 33.5 g/dL 32-36 [facility] Mean platelet volume determi nationOrdered By: Renard Burgos on 09-02-2024 Platelet mean volume (Bld) [Entitic vol] 10.7 fL 6.2-12.0 [facility] Monocyte percentageOrdered B y: Renard Burgos on 09-02-2024 Monocytes/100 WBC (Bld) 5.4 % 0-10 [facility] Neutrophil percentageOrdered By: Renard Burgos on 09-02-2024 Neutrophils/100 WBC (Bld) 68.5 % 47-70 [facility] Nucleated red blood cell per centageOrdered By: Renard Burgos on 09-02-2024 Nucleated RBC/100 WBC (Bld) [Ratio] 0 % 0-5 [facility] Platelet countOrdered By: Garrick Bhatt on 09-02-2024 Platelets (Bld) [#/Vol] 189 10*3/uL 150-450 [facility] RBC Auto (Bld) [#/Vol]Ordere d By: Renard Burgos on 09-02-2024 RBC (Bld) [#/Vol] 4.98 10*6/uL 4.6-6.2 [facility] White blood cell (WBC) count Ordered By: Renard Burgos on 09-02-2024 WBC (Bld) [#/Vol] 8.5 10*3/uL 4.4-11.0 [facility] Absolute lymphocyte countOrd ered By: Renard Burgos on 08-26-2024 Lymphocytes Auto (Unsp spec) [#/Vol] 2.17 10*3/uL 0.83-4.51 [facility] Absolute neutrophil countOrd ered By: Renard Burgos on 08-26-2024 Neutrophils (Bld) [#/Vol] 5.7 10*3/uL 2.0-7.7 [facility] Automated lymphocyte count a s percentage of total leukocytesOrdered By: Renard Burgos on 08-26-2024 Lymphocytes/100 WBC Auto (Unsp spec) 25.1 % 19-41 [facility] Basophil percentageOrdered B y: Renard Burgos on 08-26-2024 Basophils/100 WBC (Bld) 0.6 % 0-1 [facility] CBC W/Diff, Automatedon 07-31 Absolute Lymph 2.17 X10 3/uL Normal 0.83-4.51 [facility] Comment on above: Order Comment: 109-1 Performed By: #### L 100.0100 ####[facility] [address] [place], [address] Absolute Neut 5.7 X10 3/uL Normal 2.0-7.7 [facility] Comment on above: Order Comment: 109-1 Performed By: #### L 100.0100 ####[facility] [address] [place], [address] Basophils/100 WBC (Bld) 0.6 % Normal 0-1 [facility] Comment on above: Order Comment: 109-1 Performed By: #### L 100.0100 ####[facility] [address] [place], [address] Eosinophils/100 WBC (Bld) 0.8 % Normal 0-5 [facility] Comment on above: Order Comment: 109-1 Performed By: #### L 100.0100 ####[facility] [address] [place], [address] Erythrocyte distribution width (RBC) [Ratio] 12.7 % Normal 11.6-14.6 [facility] Comment on above: Order Comment: 109-1 Performed By: #### L 100.0100 ####[facility] [address] [place], [address] Hematocrit (Bld) [Volume fraction] 41.8 % Normal 40-54 [facility] Comment on above: Order Comment: 109-1 Performed By: #### L 100.0100 ####[facility] [address] [place], [address] Hemoglobin (Bld) [Mass/Vol] 13.8 g/dL Normal 13.0-16.5 [facility] Comment on above: Order Comment: 109-1 Performed By: #### L 100.0100 ####[facility] [address] [place], [address] IG% 0.200 Normal 0.0-0.9 [facility] Comment on above: Order Comment: 109-1 Result Comment: IG% - Immature Granulocytes (promyelocytes, myelocytes andmetamyelocytes) > 1% indicates that a LEFT SHIFT is Present. Performed By: #### L 100.0100 ####[facility] [address] [place], [address] Lymphocytes/100 WBC (Bld) 25.1 % Normal 19-41 [facility] Comment on above: Order Comment: 109-1 Performed By: #### L 100.0100 ####[facility] [address] [place], [address] MCH (RBC) [Entitic mass] 29.7 pg Normal 27.0-32.0 [facility] Comment on above: Order Comment: 109-1 Performed By: #### L 100.0100 ####[facility] [address] [place], [address] MCHC (RBC) [Mass/Vol] 33.0 g/dL Normal 32-36 [facility] Comment on above: Order Comment: 109-1 Performed By: #### L 100.0100 ####[facility] [address] [place], [address] MCV (RBC) [Entitic vol] 90.1 fL Normal 80-94 [facility] Comment on above: Order Comment: 109-1 Performed By: #### L 100.0100 ####[facility] [address] [place], [address] Monocytes/100 WBC (Bld) 7.4 % Normal 0-10 [facility] Comment on above: Order Comment: 109-1 Performed By: #### L 100.0100 ####[facility] [address] [place], [address] Neutrophils/100 WBC (Bld) 65.9 % Normal 47-70 [facility] Comment on above: Order Comment: 109-1 Performed By: #### L 100.0100 ####[facility] [address] [place], [address] Nucleated RBC (Bld) [#/Vol] 0 10*3/uL Normal 0-5 [facility] Comment on above: Order Comment: 109-1 Performed By: #### L 100.0100 ####[facility] [address] [place], [address] Platelet mean volume (Bld) [Entitic vol] 11.3 fL Normal 6.2-12.0 [facility] Comment on above: Order Comment: 109-1 Performed By: #### L 100.0100 ####[facility] [address] [place], [address] Platelets (Bld) [#/Vol] 196 10*3/uL Normal 150-450 [facility] Comment on above: Order Comment: 109-1 Performed By: #### L 100.0100 ####[facility] [address] [place], [address] RBC (Bld) [#/Vol] 4.64 10*6/uL Normal 4.6-6.2 [facility] Comment on above: Order Comment: 109-1 Performed By: #### L 100.0100 ####[facility] [address] [place], [address] RDW SD 41.3 fl Normal 35.1-43.9 [facility] Comment on above: Order Comment: 109-1 Performed By: #### L 100.0100 ####[facility] [address] [place], [address] WBC (Bld) [#/Vol] 8.6 10*3/uL Normal 4.4-11.0 [facility] Comment on above: Order Comment: 109-1 Performed By: #### L 100.0100 ####[facility] [address] [place], [address] Eosinophil percentageOrdered By: Renard Burgos on 08-26-2024 Eosinophils/100 WBC (Bld) 0.8 % 0-5 [facility] Erythrocyte distribution wid th ratioOrdered By: Renard Burgos on 08-26-2024 Erythrocyte distribution width (RBC) [Ratio] 12.7 % 11.6-14.6 [facility] Erythrocyte distribution wid th standard deviationOrdered By: Renard Burgos on 08-26-2024 Erythrocyte distribution width (RBC) [Ratio] 41.3 fl 35.1-43.9 [facility] Hematocrit Auto (Bld) [Volum e fraction]Ordered By: Renard Burgos on 08-26-2024 Hematocrit (Bld) [Volume fraction] 41.8 % 40-54 [facility] Hemoglobin measurementOrdere d By: Renard Burgos on 08-26-2024 Hemoglobin (Bld) [Mass/Vol] 13.8 g/dL 13.0-16.5 [facility] Immature granulocytes/100 WB C Auto (Bld)Ordered By: Renard Burgos on 08-26-2024 Immature granulocytes/100 WBC (Bld) 0.200 % 0.0-0.9 [facility] Comment on above: IG% - Immature Granu locytes (promyelocytes, myelocytes and metamyelocytes) > 1% indicates that a LEFT SHIFT is Present. MCV (mean corpuscular volume ) determinationOrdered By: Renard Burgos on 08-26-2024 MCV (RBC) [Entitic vol] 90.1 fL 80-94 [facility] Mean corpuscular hemoglobin (MCH) determinationOrdered By: Renard Burgos on 08-26-2024 MCH (RBC) [Entitic mass] 29.7 pg 27.0-32.0 [facility] Mean corpuscular hemoglobin concentration (MCHC) determinationOrdered By: Renard Burgos on 08-26-2024 MCHC (RBC) [Mass/Vol] 33.0 g/dL 32-36 [facility] Mean platelet volume determi nationOrdered By: Renard Burgos on 08-26-2024 Platelet mean volume (Bld) [Entitic vol] 11.3 fL 6.2-12.0 [facility] Monocyte percentageOrdered B y: Renard Burgos on 08-26-2024 Monocytes/100 WBC (Bld) 7.4 % 0-10 [facility] Neutrophil percentageOrdered By: Renard Burgos on 08-26-2024 Neutrophils/100 WBC (Bld) 65.9 % 47-70 [facility] Nucleated red blood cell per centageOrdered By: Renard Burgos on 08-26-2024 Nucleated RBC/100 WBC (Bld) [Ratio] 0 % 0-5 [facility] Platelet countOrdered By: Garrick Bhatt on 08-26-2024 Platelets (Bld) [#/Vol] 196 10*3/uL 150-450 [facility] RBC Auto (Bld) [#/Vol]Ordere d By: Renard Burgos on 08-26-2024 RBC (Bld) [#/Vol] 4.64 10*6/uL 4.6-6.2 [facility] White blood cell (WBC) count Ordered By: Renard Burgos on 08-26-2024 WBC (Bld) [#/Vol] 8.6 10*3/uL 4.4-11.0 [facility] Anion gap in Serum or Plasma Ordered By: Renard Burgos on 08-23-2024 Anion gap [Moles/Vol] 10 mmol/L 5-15 [facility] BUN/creatinine ratioOrdered By: Renard Burgos on 08-23-2024 Urea nitrogen/Creatinine [Mass ratio] 21.4 mg/mg High 10-20 [facility] Bilirubin, totalOrdered By: Renard Burgos on 08-23-2024 Bilirubin [Mass/Vol] 0.35 mg/dL 0.00-1.30 [facility] CBC-Complete Blood Cnt No Di ffon 08-23-2024 Erythrocyte distribution width (RBC) [Ratio] 12.7 % Normal 11.6-14.6 [facility] Comment on above: Order Comment: 109.1 Performed By: #### L 500.4100, L100.0500, L500.4050 ####[facility] [address] [place], [address] Hematocrit (Bld) [Volume fraction] 42.2 % Normal 40-54 [facility] Comment on above: Order Comment: 109.1 Performed By: #### L 500.4100, L100.0500, L500.4050 ####[facility] [address] [place], [address] Hemoglobin (Bld) [Mass/Vol] 14.0 g/dL Normal 13.0-16.5 [facility] Comment on above: Order Comment: 109.1 Performed By: #### L 500.4100, L100.0500, L500.4050 ####[facility] [address] [place], [address] MCH (RBC) [Entitic mass] 30.0 pg Normal 27.0-32.0 [facility] Comment on above: Order Comment: 109.1 Performed By: #### L 500.4100, L100.0500, L500.4050 ####[facility] [address] [place], [address] MCHC (RBC) [Mass/Vol] 33.2 g/dL Normal 32-36 [facility] Comment on above: Order Comment: 109.1 Performed By: #### L 500.4100, L100.0500, L500.4050 ####[facility] [address] [place], [address] MCV (RBC) [Entitic vol] 90.6 fL Normal 80-94 [facility] Comment on above: Order Comment: 109.1 Performed By: #### L 500.4100, L100.0500, L500.4050 ####[facility] [address] [place], [address] Platelet mean volume (Bld) [Entitic vol] 11.3 fL Normal 6.2-12.0 [facility] Comment on above: Order Comment: 109.1 Performed By: #### L 500.4100, L100.0500, L500.4050 ####[facility] [address] [place], [address] Platelets (Bld) [#/Vol] 184 10*3/uL Normal 150-450 [facility] Comment on above: Order Comment: 109.1 Performed By: #### L 500.4100, L100.0500, L500.4050 ####[facility] [address] [place], [address] RBC (Bld) [#/Vol] 4.66 10*6/uL Normal 4.6-6.2 [facility] Comment on above: Order Comment: 109.1 Performed By: #### L 500.4100, L100.0500, L500.4050 ####[facility] [address] [place], [address] RDW SD 41.8 fl Normal 35.1-43.9 [facility] Comment on above: Order Comment: 109.1 Performed By: #### L 500.4100, L100.0500, L500.4050 ####[facility] [address] [place], [address] WBC (Bld) [#/Vol] 8.6 10*3/uL Normal 4.4-11.0 [facility] Comment on above: Order Comment: 109.1 Performed By: #### L 500.4100, L100.0500, L500.4050 ####[facility] [address] [place], [address] Calculated very low density lipoprotein (VLDL) cholesterol measurementOrdered By: Renard Burgos on 08-23-2024 Calculated very low density lipoprotein (VLDL) cholesterol measurement 40 mg/dL 5-40 [facility] Carbon dioxide, total [Moles /volume] in Central venous bloodOrdered By: Renard Burgos on 08-23-2024 CO2 [Moles/Vol] 24.9 mmol/L 21.0-32.0 [facility] Chloride assayOrdered By: Garrick Bhatt on 08-23-2024 Chloride [Moles/Vol] 106 mmol/L 98-108 [facility] Comprehensive Metabolic Prof ilon 08-23-2024 Albumin [Mass/Vol] 3.4 g/dL Normal 3.4-4.8 [facility] Comment on above: Order Comment: 109.1 Performed By: #### L 500.4100, L100.0500, L500.4050 ####[facility] [address] [place], [address] Albumin/Globulin [Mass ratio] 1.4 {ratio} Normal 0.9-2.4 [facility] Comment on above: Order Comment: 109.1 Performed By: #### L 500.4100, L100.0500, L500.4050 ####[facility] [address] [place], [address] ALK PHOS 101 U/L Normal 40-129 [facility] Comment on above: Order Comment: 109.1 Performed By: #### L 500.4100, L100.0500, L500.4050 ####[facility] [address] [place], [address] ALT [Catalytic activity/Vol] 13 U/L Normal <=46 [facility] Comment on above: Order Comment: 109.1 Performed By: #### L 500.4100, L100.0500, L500.4050 ####[facility] [address] [place], [address] AST [Catalytic activity/Vol] 17 U/L Normal <=37 [facility] Comment on above: Order Comment: 109.1 Performed By: #### L 500.4100, L100.0500, L500.4050 ####[facility] [address] [place], [address] Bilirubin [Mass/Vol] 0.35 mg/dL Normal 0.00-1.30 [facility] Comment on above: Order Comment: 109.1 Performed By: #### L 500.4100, L100.0500, L500.4050 ####[facility] [address] [place], [address] BUN/CRE 21.4 RATIO High 10-20 [facility] Comment on above: Order Comment: 109.1 Performed By: #### L 500.4100, L100.0500, L500.4050 ####[facility] [address] [place], [address] Calcium [Mass/Vol] 8.2 mg/dL Normal 7.6-11.0 [facility] Comment on above: Order Comment: 109.1 Performed By: #### L 500.4100, L100.0500, L500.4050 ####[facility] [address] [place], [address] Chloride [Moles/Vol] 106 mmol/L Normal 98-108 [facility] Comment on above: Order Comment: 109.1 Performed By: #### L 500.4100, L100.0500, L500.4050 ####[facility] [address] [place], [address] CO2 [Moles/Vol] 24.9 mmol/L Normal 21.0-32.0 [facility] Comment on above: Order Comment: 109.1 Performed By: #### L 500.4100, L100.0500, L500.4050 ####[facility] [address] [place], [address] Creatinine [Mass/Vol] 0.63 mg/dL Low 0.70-1.20 [facility] Comment on above: Order Comment: 109.1 Performed By: #### L 500.4100, L100.0500, L500.4050 ####[facility] [address] [place], [address] GAP 10 Normal 5-15 [facility] Comment on above: Order Comment: 109.1 Performed By: #### L 500.4100, L100.0500, L500.4050 ####[facility] [address] [place], [address] GFR/1.73 sq M.predicted among non-blacks MDRD (S/P/Bld) [Vol rate/Area] 104 mL/min/{1.73_m2} Normal >60 [facility] Comment on above: Order Comment: 109.1 Result Comment: mL/m in/1.73m2 CKD-EPI Creatinine Equation (2020) Performed By: #### L 500.4100, L100.0500, L500.4050 ####[facility] [address] [place], [address] Globulin (S) [Mass/Vol] 2.3 g/dL Normal 2.2-4.2 [facility] Comment on above: Order Comment: 109.1 Performed By: #### L 500.4100, L100.0500, L500.4050 ####[facility] [address] [place], [address] Glucose [Mass/Vol] 116 mg/dL High 70-99 [facility] Comment on above: Order Comment: 109.1 Performed By: #### L 500.4100, L100.0500, L500.4050 ####[facility] [address] [place], [address] Potassium [Moles/Vol] 3.8 mmol/L Normal 3.3-5.1 [facility] Comment on above: Order Comment: 109.1 Performed By: #### L 500.4100, L100.0500, L500.4050 ####[facility] [address] [place], [address] Sodium [Moles/Vol] 141 mmol/L Normal 133-145 [facility] Comment on above: Order Comment: 109.1 Performed By: #### L 500.4100, L100.0500, L500.4050 ####[facility] [address] [place], [address] T PROT 5.7 g/dL Low 5.9-8.4 [facility] Comment on above: Order Comment: 109.1 Performed By: #### L 500.4100, L100.0500, L500.4050 ####[facility] [address] [place], [address] Urea nitrogen [Mass/Vol] 14 mg/dL Normal 4-19 [facility] Comment on above: Order Comment: 109.1 Performed By: #### L 500.4100, L100.0500, L500.4050 ####[facility] [address] [place], [address] Erythrocyte distribution wid th ratioOrdered By: Renard Burgos on 08-23-2024 Erythrocyte distribution width (RBC) [Ratio] 12.7 % 11.6-14.6 [facility] Erythrocyte distribution wid th standard deviationOrdered By: Renard Burgos on 08-23-2024 Erythrocyte distribution width (RBC) [Ratio] 41.8 fl 35.1-43.9 [facility] Glomerular filtration rate ( GFR) estimation/1.73 sq m using serum, plasma, or whole bOrdered By: Renard Burgso on 08-23-2024 GFR/1.73 sq M.predicted among non-blacks MDRD (S/P/Bld) [Vol rate/Area] 104 mL/min/{1.73_m2} >60 [facility] Comment on above: mL/min/1.73m2 CKD-EP I Creatinine Equation (2020) Hematocrit Auto (Bld) [Volum e fraction]Ordered By: Renard Burgos on 08-23-2024 Hematocrit (Bld) [Volume fraction] 42.2 % 40-54 [facility] Hemoglobin measurementOrdere d By: Renard Burgos on 08-23-2024 Hemoglobin (Bld) [Mass/Vol] 14.0 g/dL 13.0-16.5 [facility] LDL calc ser/plasOrdered By: Renard Burgos on 08-23-2024 Cholesterol in LDL [Mass/Vol] 62 mg/dL [facility] Comment on above: Ahwzvdnkzc=864-968 m g/dL & Higher Xiks=124 mg/dL or greater Laboratory - Chemistry and C hemistry - challengeOrdered By: Renard Burgos on 08-23-2024 AST [Catalytic activity/Vol] 17 U/L <38 [facility] Lipid Profileon 08-23-2024 CHOL:HDL 5.32 Normal [facility] Comment on above: Order Comment: 109.1 Performed By: #### L 500.4100, L100.0500, L500.4050 ####[facility] [address] [place], [address] Cholesterol [Mass/Vol] 125 mg/dL Normal <=200 [facility] Comment on above: Order Comment: 109.1 Result Comment: Chol esterol level, Desirable <200 mg/dLBorderline high cholesterol 200-239 mg/dLHigh cholesterol >=240 mg/dLRecommendations of the NCEP Adult Treatment Panel for thefollowing risk-cutoff thresholds for the [place] Americanpulation. Performed By: #### L 500.4100, L100.0500, L500.4050 ####[facility] [address] [place], [address] Cholesterol in HDL [Mass/Vol] 24 mg/dL Low [facility] Comment on above: Order Comment: 109.1 Result Comment: Lucy onal Cholesterol Education Program (NCEP) guidelines:<40 mg/dL: Low HDL-cholesterol (major risk factor for CHD)>= 60 mg/dL: High HDL-cholesterol (negative risk factor forCHD)HDL-cholesterol is affected by a number of factors, e.g.smoking, exercise, hormones, sex and age. Performed By: #### L 500.4100, L100.0500, L500.4050 ####[facility] [address] [place], [address] Cholesterol in LDL [Mass/Vol] 62 mg/dL Normal [facility] Comment on above: Order Comment: 109.1 Result Comment: Bord wiamiy=233-041 mg/dL Higher Ahrd=404 mg/dL or greater Performed By: #### L 500.4100, L100.0500, L500.4050 ####[facility] [address] [place], [address] Cholesterol in VLDL [Mass/Vol] 40 mg/dL Normal 5-40 [facility] Comment on above: Order Comment: 109.1 Performed By: #### L 500.4100, L100.0500, L500.4050 ####[facility] [address] [place], [address] Triglyceride [Mass/Vol] 198 mg/dL Normal [facility] Comment on above: Order Comment: 109.1 Result Comment: The drugs N-Acetylcysteine and Metamizole may falselydepress this assay.Normal range: <150 mg/dLBorderline High: 150-199 mg/dLHigh: 200-499 mg/dLVery High: >500 mg/dL Performed By: #### L 500.4100, L100.0500, L500.4050 ####[facility] [address] [place], [address] MCV (mean corpuscular volume ) determinationOrdered By: Renard Burgos on 08-23-2024 MCV (RBC) [Entitic vol] 90.6 fL 80-94 [facility] Mean corpuscular hemoglobin (MCH) determinationOrdered By: Renard Burgos on 08-23-2024 MCH (RBC) [Entitic mass] 30.0 pg 27.0-32.0 [facility] Mean corpuscular hemoglobin concentration (MCHC) determinationOrdered By: Renard Burgos on 08-23-2024 MCHC (RBC) [Mass/Vol] 33.2 g/dL 32-36 [facility] Mean platelet volume determi nationOrdered By: Renard Burgos on 08-23-2024 Platelet mean volume (Bld) [Entitic vol] 11.3 fL 6.2-12.0 [facility] Platelet countOrdered By: Garrick Bhatt on 08-23-2024 Platelets (Bld) [#/Vol] 184 10*3/uL 150-450 [facility] Potassium measurement (mass/ volume)Ordered By: Renard Burgos on 08-23-2024 Potassium (Unsp spec) [Mass/Vol] 3.8 mmol/L 3.3-5.1 [facility] RBC Auto (Bld) [#/Vol]Ordere d By: Renard Burgos on 08-23-2024 RBC (Bld) [#/Vol] 4.66 10*6/uL 4.6-6.2 [facility] Screening total cholesterol/ high density lipoprotein (HDL) cholesterol ratioOrdered By: Renard Burgos on 08-23-2024 Cholesterol.total/Cecilia sterol in HDL [Mass ratio] 5.32 {ratio} [facility] Serum creatinine measurement (mass/volume)Ordered By: Renard Burgos on 08-23-2024 Creatinine [Mass/Vol] 0.63 mg/dL Low 0.70-1.20 [facility] Serum globulin measurementOr dered By: Renard Burgos on 08-23-2024 Globulin (S) [Mass/Vol] 2.3 g/dL 2.2-4.2 [facility] Serum glucose measurement (m ass/volume)Ordered By: Renard Burgos on 08-23-2024 Glucose [Mass/Vol] 116 mg/dL High 70-99 [facility] Serum or plasma alanine kay otransferase (ALT) measurementOrdered By: Renard Burgos on 08-23-2024 ALT [Catalytic activity/Vol] 13 U/L <47 [facility] Serum or plasma albumin gordy urement (mass/volume)Ordered By: Renard Burgos on 08-23-2024 Albumin [Mass/Vol] 3.4 g/dL 3.4-4.8 [facility] Serum or plasma albumin/glob ulin mass ratioOrdered By: Renard Burgos on 08-23-2024 Albumin/Globulin [Mass ratio] 1.4 {ratio} 0.9-2.4 [facility] Serum or plasma alkaline trace sphatase measurementOrdered By: Renard Burgos on 08-23-2024 ALP [Catalytic activity/Vol] 101 U/L 40-129 [facility] Serum or plasma calcium gordy urement (mass/volume)Ordered By: Renard Burgos on 08-23-2024 Calcium [Mass/Vol] 8.2 mg/dL 7.6-11.0 [facility] Serum or plasma cholesterol in HDL measurement (mass/volume)Ordered By: Renard Burgos on 08-23-2024 Cholesterol in HDL [Mass/Vol] 24 mg/dL Low >40 [facility] Comment on above: National Cholesterol Education Program (NCEP) guidelines:<40 mg/dL: Low HDL-cholesterol (major risk factor for CHD)>= 60 mg/dL: High HDL-cholesterol (negative risk factor for CHD)HDL-cholesterol is affected by a number of factors, e.g. smoking, exercise, hormones, sex and age. Serum or plasma cholesterol measurement (mass/volume)Ordered By: Renard Burgos on 08-23-2024 Cholesterol [Mass/Vol] 125 mg/dL <201 [facility] Comment on above: Cholesterol level, D esirable <200 mg/dLBorderline high cholesterol 200-239 mg/dLHigh cholesterol >=240 mg/dLRecommendations of the NCEP Adult Treatment Panel for the following risk-cutoff thresholds for the [place] population. Serum or plasma urea nitroge n measurement (mass/volume)Ordered By: Renard Burgos on 08-23-2024 Urea nitrogen [Mass/Vol] 14 mg/dL 4-19 [facility] Sodium levelOrdered By: Lamine Burgos on 08-23-2024 Sodium [Moles/Vol] 141 mmol/L 133-145 [facility] Total proteinOrdered By: Lyubov Burgos on 08-23-2024 Protein [Mass/Vol] 5.7 g/dL Low 5.9-8.4 [facility] Triglycerides measurementOrd ered By: Renard Burgos on 08-23-2024 Triglyceride [Mass/Vol] 198 mg/dL <199 [facility] Comment on above: The drugs N-Acetylcy steine and Metamizole may falsely depress this assay. Normal range: <150 mg/dLBorderline High: 150-199 mg/dLHigh: 200-499 mg/dLVery High: >500 mg/dL White blood cell (WBC) count Ordered By: Renard Burgos on 08-23-2024 WBC (Bld) [#/Vol] 8.6 10*3/uL 4.4-11.0 [facility] Absolute lymphocyte countOrd ered By: Renard Burgos on 08-19-2024 Lymphocytes Auto (Unsp spec) [#/Vol] 1.97 10*3/uL 0.83-4.51 [facility] Absolute neutrophil countOrd ered By: Renard Burgos on 08-19-2024 Neutrophils (Bld) [#/Vol] 5.0 10*3/uL 2.0-7.7 [facility] Automated lymphocyte count a s percentage of total leukocytesOrdered By: Renard Burgos on 08-19-2024 Lymphocytes/100 WBC Auto (Unsp spec) 25.4 % 19-41 [facility] Basophil percentageOrdered B y: Renard Burgos on 08-19-2024 Basophils/100 WBC (Bld) 0.5 % 0-1 [facility] CBC W/Diff, Automatedon 07-31 Absolute Lymph 1.97 X10 3/uL Normal 0.83-4.51 [facility] Comment on above: Order Comment: 109 Performed By: #### L 100.0100 ####[facility] [address] [place], [place], [address] Absolute Neut 5.0 X10 3/uL Normal 2.0-7.7 [facility] Comment on above: Order Comment: 109 Performed By: #### L 100.0100 ####[facility] [address] [place], [address] Basophils/100 WBC (Bld) 0.5 % Normal 0-1 [facility] Comment on above: Order Comment: 109 Performed By: #### L 100.0100 ####[facility] [address] [place], [address] Eosinophils/100 WBC (Bld) 1.0 % Normal 0-5 [facility] Comment on above: Order Comment: 109 Performed By: #### L 100.0100 ####[facility] [address] [place], [address] Erythrocyte distribution width (RBC) [Ratio] 12.7 % Normal 11.6-14.6 [facility] Comment on above: Order Comment: 109 Performed By: #### L 100.0100 ####[facility] [address] [place], [address] Hematocrit (Bld) [Volume fraction] 41.0 % Normal 40-54 [facility] Comment on above: Order Comment: 109 Performed By: #### L 100.0100 ####[facility] [address] [place], [address] Hemoglobin (Bld) [Mass/Vol] 13.6 g/dL Normal 13.0-16.5 [facility] Comment on above: Order Comment: 109 Performed By: #### L 100.0100 ####[facility] [address] [place], [address] IG% 0.400 Normal 0.0-0.9 [facility] Comment on above: Order Comment: 109 Result Comment: IG% - Immature Granulocytes (promyelocytes, myelocytes andmetamyelocytes) > 1% indicates that a LEFT SHIFT is Present. Performed By: #### L 100.0100 ####[facility] [address] [place], [address] Lymphocytes/100 WBC (Bld) 25.4 % Normal 19-41 [facility] Comment on above: Order Comment: 109 Performed By: #### L 100.0100 ####[facility] [address] [place], [address] MCH (RBC) [Entitic mass] 30.2 pg Normal 27.0-32.0 [facility] Comment on above: Order Comment: 109 Performed By: #### L 100.0100 ####[facility] [address] [place], [address] MCHC (RBC) [Mass/Vol] 33.2 g/dL Normal 32-36 [facility] Comment on above: Order Comment: 109 Performed By: #### L 100.0100 ####[facility] [address] [place], [address] MCV (RBC) [Entitic vol] 91.1 fL Normal 80-94 [facility] Comment on above: Order Comment: 109 Performed By: #### L 100.0100 ####[facility] [address] [place], [address] Monocytes/100 WBC (Bld) 8.2 % Normal 0-10 [facility] Comment on above: Order Comment: 109 Performed By: #### L 100.0100 ####[facility] [address] [place], [address] Neutrophils/100 WBC (Bld) 64.5 % Normal 47-70 [facility] Comment on above: Order Comment: 109 Performed By: #### L 100.0100 ####[facility] [address] [place], [address] Nucleated RBC (Bld) [#/Vol] 0 10*3/uL Normal 0-5 [facility] Comment on above: Order Comment: 109 Performed By: #### L 100.0100 ####[facility] [address] [place], [address] Platelet mean volume (Bld) [Entitic vol] 11.1 fL Normal 6.2-12.0 [facility] Comment on above: Order Comment: 109 Performed By: #### L 100.0100 ####[facility] [address] [place], [address] Platelets (Bld) [#/Vol] 207 10*3/uL Normal 150-450 [facility] Comment on above: Order Comment: 109 Performed By: #### L 100.0100 ####[facility] [address] [place], [address] RBC (Bld) [#/Vol] 4.50 10*6/uL Low 4.6-6.2 [facility] Comment on above: Order Comment: 109 Performed By: #### L 100.0100 ####[facility] [address] [place], [address] RDW SD 42.0 fl Normal 35.1-43.9 [facility] Comment on above: Order Comment: 109 Performed By: #### L 100.0100 ####[facility] [address] [place], [address] WBC (Bld) [#/Vol] 7.8 10*3/uL Normal 4.4-11.0 [facility] Comment on above: Order Comment: 109 Performed By: #### L 100.0100 ####[facility] [address] [place], [address] Eosinophil percentageOrdered By: Renard Burgos on 08-19-2024 Eosinophils/100 WBC (Bld) 1.0 % 0-5 [facility] Erythrocyte distribution wid th ratioOrdered By: Renard Burgos on 08-19-2024 Erythrocyte distribution width (RBC) [Ratio] 12.7 % 11.6-14.6 [facility] Erythrocyte distribution wid th standard deviationOrdered By: Renard Burgos on 08-19-2024 Erythrocyte distribution width (RBC) [Ratio] 42.0 fl 35.1-43.9 [facility] Hematocrit Auto (Bld) [Volum e fraction]Ordered By: Renard Burgos on 08-19-2024 Hematocrit (Bld) [Volume fraction] 41.0 % 40-54 [facility] Hemoglobin measurementOrdere d By: Renard Burgos on 08-19-2024 Hemoglobin (Bld) [Mass/Vol] 13.6 g/dL 13.0-16.5 [facility] Immature granulocytes/100 WB C Auto (Bld)Ordered By: Renard Burgos on 08-19-2024 Immature granulocytes/100 WBC (Bld) 0.400 % 0.0-0.9 [facility] Comment on above: IG% - Immature Granu locytes (promyelocytes, myelocytes and metamyelocytes) > 1% indicates that a LEFT SHIFT is Present. MCV (mean corpuscular volume ) determinationOrdered By: Renard Burgos on 08-19-2024 MCV (RBC) [Entitic vol] 91.1 fL 80-94 [facility] Mean corpuscular hemoglobin (MCH) determinationOrdered By: Renard Burgos on 08-19-2024 MCH (RBC) [Entitic mass] 30.2 pg 27.0-32.0 [facility] Mean corpuscular hemoglobin concentration (MCHC) determinationOrdered By: Renard Burgos on 08-19-2024 MCHC (RBC) [Mass/Vol] 33.2 g/dL 32-36 [facility] Mean platelet volume determi nationOrdered By: Renard Burgos on 08-19-2024 Platelet mean volume (Bld) [Entitic vol] 11.1 fL 6.2-12.0 [facility] Monocyte percentageOrdered B y: Renard Burgos on 08-19-2024 Monocytes/100 WBC (Bld) 8.2 % 0-10 [facility] Neutrophil percentageOrdered By: Renard Burgos on 08-19-2024 Neutrophils/100 WBC (Bld) 64.5 % 47-70 [facility] Nucleated red blood cell per centageOrdered By: Renard Burgos on 08-19-2024 Nucleated RBC/100 WBC (Bld) [Ratio] 0 % 0-5 [facility] Platelet countOrdered By: Garrick Bhatt on 08-19-2024 Platelets (Bld) [#/Vol] 207 10*3/uL 150-450 [facility] RBC Auto (Bld) [#/Vol]Ordere d By: Renard Burgos on 08-19-2024 RBC (Bld) [#/Vol] 4.50 10*6/uL Low 4.6-6.2 [facility] White blood cell (WBC) count Ordered By: Renard Burgos on 08-19-2024 WBC (Bld) [#/Vol] 7.8 10*3/uL 4.4-11.0 [facility] Absolute lymphocyte countOrd ered By: Renard Burgos on 08-12-2024 Lymphocytes Auto (Unsp spec) [#/Vol] 2.09 10*3/uL 0.83-4.51 [facility] Absolute neutrophil countOrd ered By: Renard Burgos on 08-12-2024 Neutrophils (Bld) [#/Vol] 5.0 10*3/uL 2.0-7.7 [facility] Automated lymphocyte count a s percentage of total leukocytesOrdered By: Renard Burgos on 08-12-2024 Lymphocytes/100 WBC Auto (Unsp spec) 27.0 % 19-41 [facility] Basophil percentageOrdered B y: Renard Burgos on 08-12-2024 Basophils/100 WBC (Bld) 0.5 % 0-1 [facility] CBC W/Diff, Automatedon 07-30 Absolute Lymph 2.09 X10 3/uL Normal 0.83-4.51 [facility] Comment on above: Order Comment: 109.1 Performed By: #### L 100.0100 ####[facility] [address] [place], [place], [id number] Absolute Neut 5.0 X10 3/uL Normal 2.0-7.7 [facility] Comment on above: Order Comment: 109.1 Performed By: #### L 100.0100 ####[facility] [address] [place], [address] Basophils/100 WBC (Bld) 0.5 % Normal 0-1 [facility] Comment on above: Order Comment: 109.1 Performed By: #### L 100.0100 ####[facility] [address] [place], [address] Eosinophils/100 WBC (Bld) 0.9 % Normal 0-5 [facility] Comment on above: Order Comment: 109.1 Performed By: #### L 100.0100 ####[facility] [address] [place], [address] Erythrocyte distribution width (RBC) [Ratio] 12.7 % Normal 11.6-14.6 [facility] Comment on above: Order Comment: 109.1 Performed By: #### L 100.0100 ####[facility] [address] [place], [address] Hematocrit (Bld) [Volume fraction] 41.9 % Normal 40-54 [facility] Comment on above: Order Comment: 109.1 Performed By: #### L 100.0100 ####[facility] [address] [place], [address] Hemoglobin (Bld) [Mass/Vol] 14.1 g/dL Normal 13.0-16.5 [facility] Comment on above: Order Comment: 109.1 Performed By: #### L 100.0100 ####[facility] [address] [place], [address] IG% 0.300 Normal 0.0-0.9 [facility] Comment on above: Order Comment: 109.1 Result Comment: IG% - Immature Granulocytes (promyelocytes, myelocytes andmetamyelocytes) > 1% indicates that a LEFT SHIFT is Present. Performed By: #### L 100.0100 ####[facility] [address] [place], [address] Lymphocytes/100 WBC (Bld) 27.0 % Normal 19-41 [facility] Comment on above: Order Comment: 109.1 Performed By: #### L 100.0100 ####[facility] [address] [place], [address] MCH (RBC) [Entitic mass] 30.3 pg Normal 27.0-32.0 [facility] Comment on above: Order Comment: 109.1 Performed By: #### L 100.0100 ####[facility] [address] [place], [address] MCHC (RBC) [Mass/Vol] 33.7 g/dL Normal 32-36 [facility] Comment on above: Order Comment: 109.1 Performed By: #### L 100.0100 ####[facility] [address] [place], [address] MCV (RBC) [Entitic vol] 90.1 fL Normal 80-94 [facility] Comment on above: Order Comment: 109.1 Performed By: #### L 100.0100 ####[facility] [address] [place], [address] Monocytes/100 WBC (Bld) 7.1 % Normal 0-10 [facility] Comment on above: Order Comment: 109.1 Performed By: #### L 100.0100 ####[facility] [address] [place], [address] Neutrophils/100 WBC (Bld) 64.2 % Normal 47-70 [facility] Comment on above: Order Comment: 109.1 Performed By: #### L 100.0100 ####[facility] [address] [place], [address] Nucleated RBC (Bld) [#/Vol] 0 10*3/uL Normal 0-5 [facility] Comment on above: Order Comment: 109.1 Performed By: #### L 100.0100 ####[facility] [address] [place], [address] Platelet mean volume (Bld) [Entitic vol] 11.2 fL Normal 6.2-12.0 [facility] Comment on above: Order Comment: 109.1 Performed By: #### L 100.0100 ####[facility] [address] [place], [address] Platelets (Bld) [#/Vol] 188 10*3/uL Normal 150-450 [facility] Comment on above: Order Comment: 109.1 Performed By: #### L 100.0100 ####[facility] [address] [place], [address] RBC (Bld) [#/Vol] 4.65 10*6/uL Normal 4.6-6.2 [facility] Comment on above: Order Comment: 109.1 Performed By: #### L 100.0100 ####[facility] [address] [place], [address] RDW SD 41.6 fl Normal 35.1-43.9 [facility] Comment on above: Order Comment: 109.1 Performed By: #### L 100.0100 ####[facility] [address] [place], [address] WBC (Bld) [#/Vol] 7.8 10*3/uL Normal 4.4-11.0 [facility] Comment on above: Order Comment: 109.1 Performed By: #### L 100.0100 ####[facility] [address] [place], [address] Eosinophil percentageOrdered By: Renard Burgos on 08-12-2024 Eosinophils/100 WBC (Bld) 0.9 % 0-5 [facility] Erythrocyte distribution wid th (RBC) [Ratio]Ordered By: Renard Burgos on 08-12-2024 Erythrocyte distribution width (RBC) [Entitic vol] 41.6 fL 35.1-43.9 [facility] Erythrocyte distribution wid th ratioOrdered By: Renard Burgos on 08-12-2024 Erythrocyte distribution width (RBC) [Ratio] 12.7 % 11.6-14.6 [facility] Erythrocyte distribution wid th standard deviationOrdered By: Renard Burgos on 08-12-2024 Erythrocyte distribution width (RBC) [Ratio] 41.6 fl 35.1-43.9 [facility] Hematocrit Auto (Bld) [Volum e fraction]Ordered By: Renard Burgos on 08-12-2024 Hematocrit (Bld) [Volume fraction] 41.9 % 40-54 [facility] Hemoglobin measurementOrdere d By: Renard Burgos on 08-12-2024 Hemoglobin (Bld) [Mass/Vol] 14.1 g/dL 13.0-16.5 [facility] Immature granulocytes/100 WB C Auto (Bld)Ordered By: Renard Burgos on 08-12-2024 Immature granulocytes/100 WBC (Bld) 0.300 % 0.0-0.9 [facility] Comment on above: IG% - Immature Granu locytes (promyelocytes, myelocytes and metamyelocytes) > 1% indicates that a LEFT SHIFT is Present. Lymphocytes Auto (Unsp spec) [#/Vol]Ordered By: Renard Burgos on 08-12-2024 Lymphocytes (Bld) [#/Vol] 2.09 10*3/uL 0.83-4.51 [facility] Lymphocytes/100 WBC Auto (Un sp spec)Ordered By: Renard Burgos on 08-12-2024 Lymphocytes/100 WBC (Bld) 27.0 % 19-41 [facility] MCV (mean corpuscular volume ) determinationOrdered By: Renard Burgos on 08-12-2024 MCV (RBC) [Entitic vol] 90.1 fL 80-94 [facility] Mean corpuscular hemoglobin (MCH) determinationOrdered By: Renard Burgos on 08-12-2024 MCH (RBC) [Entitic mass] 30.3 pg 27.0-32.0 [facility] Mean corpuscular hemoglobin concentration (MCHC) determinationOrdered By: Renard Burgos on 08-12-2024 MCHC (RBC) [Mass/Vol] 33.7 g/dL 32-36 [facility] Mean platelet volume determi nationOrdered By: Renard Burgos on 08-12-2024 Platelet mean volume (Bld) [Entitic vol] 11.2 fL 6.2-12.0 [facility] Monocyte percentageOrdered B y: Renard Burgos on 08-12-2024 Monocytes/100 WBC (Bld) 7.1 % 0-10 [facility] Neutrophil percentageOrdered By: Renard Burgos on 08-12-2024 Neutrophils/100 WBC (Bld) 64.2 % 47-70 [facility] Nucleated red blood cell per centageOrdered By: Renard Burgos on 08-12-2024 Nucleated RBC/100 WBC (Bld) [Ratio] 0 % 0-5 [facility] Platelet countOrdered By: Garrick Bhatt on 08-12-2024 Platelets (Bld) [#/Vol] 188 10*3/uL 150-450 [facility] RBC Auto (Bld) [#/Vol]Ordere d By: Renard Burgos on 08-12-2024 RBC (Bld) [#/Vol] 4.65 10*6/uL 4.6-6.2 [facility] White blood cell (WBC) count Ordered By: Renard Burgos on 08-12-2024 WBC (Bld) [#/Vol] 7.8 10*3/uL 4.4-11.0 [facility] Absolute lymphocyte countOrd ered By: Renard Burgos on 08-05-2024 Lymphocytes Auto (Unsp spec) [#/Vol] 2.31 10*3/uL 0.83-4.51 [facility] Absolute neutrophil countOrd ered By: Renard Burgos on 08-05-2024 Neutrophils (Bld) [#/Vol] 5.4 10*3/uL 2.0-7.7 [facility] Automated lymphocyte count a s percentage of total leukocytesOrdered By: Renard Burgos on 08-05-2024 Lymphocytes/100 WBC Auto (Unsp spec) 26.9 % 19-41 [facility] Basophil percentageOrdered B y: Renard Burgos on 08-05-2024 Basophils/100 WBC (Bld) 0.6 % 0-1 [facility] CBC W/Diff, Automatedon 04-0 7-2024 Absolute Lymph 2.31 X10 3/uL Normal 0.83-4.51 [facility] Comment on above: Order Comment: 109.1 Performed By: #### L 100.0100 ####[facility] [address] [place], [address] Absolute Neut 5.4 X10 3/uL Normal 2.0-7.7 [facility] Comment on above: Order Comment: 109.1 Performed By: #### L 100.0100 ####[facility] [address] [place], [address] Basophils/100 WBC (Bld) 0.6 % Normal 0-1 [facility] Comment on above: Order Comment: 109.1 Performed By: #### L 100.0100 ####[facility] [address] [place], [address] Eosinophils/100 WBC (Bld) 0.8 % Normal 0-5 [facility] Comment on above: Order Comment: 109.1 Performed By: #### L 100.0100 ####[facility] [address] [place], [address] Erythrocyte distribution width (RBC) [Ratio] 12.7 % Normal 11.6-14.6 [facility] Comment on above: Order Comment: 109.1 Performed By: #### L 100.0100 ####[facility] [address] [place], [address] Hematocrit (Bld) [Volume fraction] 41.6 % Normal 40-54 [facility] Comment on above: Order Comment: 109.1 Performed By: #### L 100.0100 ####[facility] [address] [place], [address] Hemoglobin (Bld) [Mass/Vol] 13.7 g/dL Normal 13.0-16.5 [facility] Comment on above: Order Comment: 109.1 Performed By: #### L 100.0100 ####[facility] [address] [place], [address] IG% 0.300 Normal 0.0-0.9 [facility] Comment on above: Order Comment: 109.1 Result Comment: IG% - Immature Granulocytes (promyelocytes, myelocytes andmetamyelocytes) > 1% indicates that a LEFT SHIFT is Present. Performed By: #### L 100.0100 ####[facility] [address] [place], [address] Lymphocytes/100 WBC (Bld) 26.9 % Normal 19-41 [facility] Comment on above: Order Comment: 109.1 Performed By: #### L 100.0100 ####[facility] [address] [place], [address] MCH (RBC) [Entitic mass] 30.1 pg Normal 27.0-32.0 [facility] Comment on above: Order Comment: 109.1 Performed By: #### L 100.0100 ####[facility] [address] [place], [address] MCHC (RBC) [Mass/Vol] 32.9 g/dL Normal 32-36 [facility] Comment on above: Order Comment: 109.1 Performed By: #### L 100.0100 ####[facility] [address] [place], [address] MCV (RBC) [Entitic vol] 91.4 fL Normal 80-94 [facility] Comment on above: Order Comment: 109.1 Performed By: #### L 100.0100 ####[facility] [address] [place], [address] Monocytes/100 WBC (Bld) 8.3 % Normal 0-10 [facility] Comment on above: Order Comment: 109.1 Performed By: #### L 100.0100 ####[facility] [address] [place], [address] Neutrophils/100 WBC (Bld) 63.1 % Normal 47-70 [facility] Comment on above: Order Comment: 109.1 Performed By: #### L 100.0100 ####[facility] [address] [place], [address] Nucleated RBC (Bld) [#/Vol] 0 10*3/uL Normal 0-5 [facility] Comment on above: Order Comment: 109.1 Performed By: #### L 100.0100 ####[facility] [address] [place], [address] Platelet mean volume (Bld) [Entitic vol] 11.1 fL Normal 6.2-12.0 [facility] Comment on above: Order Comment: 109.1 Performed By: #### L 100.0100 ####[facility] [address] [place], [address] Platelets (Bld) [#/Vol] 199 10*3/uL Normal 150-450 [facility] Comment on above: Order Comment: 109.1 Performed By: #### L 100.0100 ####[facility] [address] [place], [address] RBC (Bld) [#/Vol] 4.55 10*6/uL Low 4.6-6.2 [facility] Comment on above: Order Comment: 109.1 Performed By: #### L 100.0100 ####[facility] [address] [place], [address] RDW SD 42.5 fl Normal 35.1-43.9 [facility] Comment on above: Order Comment: 109.1 Performed By: #### L 100.0100 ####[facility] [address] [place], [address] WBC (Bld) [#/Vol] 8.6 10*3/uL Normal 4.4-11.0 [facility] Comment on above: Order Comment: 109.1 Performed By: #### L 100.0100 ####[facility] [address] [place], [address] Eosinophil percentageOrdered By: Renard Burgos on 08-05-2024 Eosinophils/100 WBC (Bld) 0.8 % 0-5 [facility] Erythrocyte distribution wid th (RBC) [Ratio]Ordered By: Renard Burgos on 08-05-2024 Erythrocyte distribution width (RBC) [Entitic vol] 42.5 fL 35.1-43.9 [facility] Erythrocyte distribution wid th ratioOrdered By: Renard Burgos on 08-05-2024 Erythrocyte distribution width (RBC) [Ratio] 12.7 % 11.6-14.6 [facility] Erythrocyte distribution wid th standard deviationOrdered By: Renard Burgos on 08-05-2024 Erythrocyte distribution width (RBC) [Ratio] 42.5 fl 35.1-43.9 [facility] Hematocrit Auto (Bld) [Volum e fraction]Ordered By: Renard Burgos on 08-05-2024 Hematocrit (Bld) [Volume fraction] 41.6 % 40-54 [facility] Hemoglobin measurementOrdere d By: Renard Burgos on 08-05-2024 Hemoglobin (Bld) [Mass/Vol] 13.7 g/dL 13.0-16.5 [facility] Immature granulocytes/100 WB C Auto (Bld)Ordered By: Renard Burgos on 08-05-2024 Immature granulocytes/100 WBC (Bld) 0.300 % 0.0-0.9 [facility] Comment on above: IG% - Immature Granu locytes (promyelocytes, myelocytes and metamyelocytes) > 1% indicates that a LEFT SHIFT is Present. Lymphocytes Auto (Unsp spec) [#/Vol]Ordered By: Renard Burgos on 08-05-2024 Lymphocytes (Bld) [#/Vol] 2.31 10*3/uL 0.83-4.51 [facility] Lymphocytes/100 WBC Auto (Un sp spec)Ordered By: Renard Burgos on 08-05-2024 Lymphocytes/100 WBC (Bld) 26.9 % 19-41 [facility] MCV (mean corpuscular volume ) determinationOrdered By: Renard Burgos on 08-05-2024 MCV (RBC) [Entitic vol] 91.4 fL 80-94 [facility] Mean corpuscular hemoglobin (MCH) determinationOrdered By: Renard Burgos on 08-05-2024 MCH (RBC) [Entitic mass] 30.1 pg 27.0-32.0 [facility] Mean corpuscular hemoglobin concentration (MCHC) determinationOrdered By: Renard Burgos on 08-05-2024 MCHC (RBC) [Mass/Vol] 32.9 g/dL 32-36 [facility] Mean platelet volume determi nationOrdered By: Renard Burgos on 08-05-2024 Platelet mean volume (Bld) [Entitic vol] 11.1 fL 6.2-12.0 [facility] Monocyte percentageOrdered B y: Renard Burgos on 08-05-2024 Monocytes/100 WBC (Bld) 8.3 % 0-10 [facility] Neutrophil percentageOrdered By: Renard Burgos on 08-05-2024 Neutrophils/100 WBC (Bld) 63.1 % 47-70 [facility] Nucleated red blood cell per centageOrdered By: Renard Burgos on 08-05-2024 Nucleated RBC/100 WBC (Bld) [Ratio] 0 % 0-5 [facility] Platelet countOrdered By: Garrick Bhatt on 08-05-2024 Platelets (Bld) [#/Vol] 199 10*3/uL 150-450 [facility] RBC Auto (Bld) [#/Vol]Ordere d By: Renard Burgos on 08-05-2024 RBC (Bld) [#/Vol] 4.55 10*6/uL Low 4.6-6.2 [facility] White blood cell (WBC) count Ordered By: Renard Burgos on 08-05-2024 WBC (Bld) [#/Vol] 8.6 10*3/uL 4.4-11.0 [facility] Absolute lymphocyte countOrd ered By: Renard Burgos on 07-29-2024 Lymphocytes Auto (Unsp spec) [#/Vol] 1.93 10*3/uL 0.83-4.51 [facility] Absolute neutrophil countOrd ered By: Renard Burgos on 07-29-2024 Neutrophils (Bld) [#/Vol] 6.8 10*3/uL 2.0-7.7 [facility] Automated lymphocyte count a s percentage of total leukocytesOrdered By: Renard Burgos on 07-29-2024 Lymphocytes/100 WBC Auto (Unsp spec) 20.2 % 19-41 [facility] Basophil percentageOrdered B y: Renard Burgos on 07-29-2024 Basophils/100 WBC (Bld) 0.5 % 0-1 [facility] CBC W/Diff, Automatedon 07-01 Absolute Lymph 1.93 X10 3/uL Normal 0.83-4.51 [facility] Comment on above: Order Comment: 109-1 Performed By: #### L 100.0100 ####[facility] [address] [place], [address] Absolute Neut 6.8 X10 3/uL Normal 2.0-7.7 [facility] Comment on above: Order Comment: 109-1 Performed By: #### L 100.0100 ####[facility] [address] [place], [address] Basophils/100 WBC (Bld) 0.5 % Normal 0-1 [facility] Comment on above: Order Comment: 109-1 Performed By: #### L 100.0100 ####[facility] [address] [place], [address] Eosinophils/100 WBC (Bld) 0.7 % Normal 0-5 [facility] Comment on above: Order Comment: 109-1 Performed By: #### L 100.0100 ####[facility] [address] [place], [address] Erythrocyte distribution width (RBC) [Ratio] 12.8 % Normal 11.6-14.6 [facility] Comment on above: Order Comment: 109-1 Performed By: #### L 100.0100 ####[facility] [address] [place], [address] Hematocrit (Bld) [Volume fraction] 40.7 % Normal 40-54 [facility] Comment on above: Order Comment: 109-1 Performed By: #### L 100.0100 ####[facility] [address] [place], [address] Hemoglobin (Bld) [Mass/Vol] 13.5 g/dL Normal 13.0-16.5 [facility] Comment on above: Order Comment: 109-1 Performed By: #### L 100.0100 ####[facility] [address] [place], [address] IG% 0.400 Normal 0.0-0.9 [facility] Comment on above: Order Comment: 109-1 Result Comment: IG% - Immature Granulocytes (promyelocytes, myelocytes andmetamyelocytes) > 1% indicates that a LEFT SHIFT is Present. Performed By: #### L 100.0100 ####[facility] [address] [place], [address] Lymphocytes/100 WBC (Bld) 20.2 % Normal 19-41 [facility] Comment on above: Order Comment: 109-1 Performed By: #### L 100.0100 ####[facility] [address] [place], [address] MCH (RBC) [Entitic mass] 29.9 pg Normal 27.0-32.0 [facility] Comment on above: Order Comment: 109-1 Performed By: #### L 100.0100 ####[facility] [address] [place], [address] MCHC (RBC) [Mass/Vol] 33.2 g/dL Normal 32-36 [facility] Comment on above: Order Comment: 109-1 Performed By: #### L 100.0100 ####[facility] [address] [place], [address] MCV (RBC) [Entitic vol] 90.0 fL Normal 80-94 [facility] Comment on above: Order Comment: 109-1 Performed By: #### L 100.0100 ####[facility] [address] [place], [address] Monocytes/100 WBC (Bld) 7.1 % Normal 0-10 [facility] Comment on above: Order Comment: 109-1 Performed By: #### L 100.0100 ####[facility] [address] [place], [address] Neutrophils/100 WBC (Bld) 71.1 % High 47-70 [facility] Comment on above: Order Comment: 109-1 Performed By: #### L 100.0100 ####[facility] [address] [place], [address] Nucleated RBC (Bld) [#/Vol] 0 10*3/uL Normal 0-5 [facility] Comment on above: Order Comment: 109-1 Performed By: #### L 100.0100 ####[facility] [address] [place], [address] Platelet mean volume (Bld) [Entitic vol] 11.2 fL Normal 6.2-12.0 [facility] Comment on above: Order Comment: 109-1 Performed By: #### L 100.0100 ####[facility] [address] [place], [address] Platelets (Bld) [#/Vol] 218 10*3/uL Normal 150-450 [facility] Comment on above: Order Comment: 109-1 Performed By: #### L 100.0100 ####[facility] [address] [place], [address] RBC (Bld) [#/Vol] 4.52 10*6/uL Low 4.6-6.2 [facility] Comment on above: Order Comment: 109-1 Performed By: #### L 100.0100 ####[facility] [address] [place], [address] RDW SD 41.9 fl Normal 35.1-43.9 [facility] Comment on above: Order Comment: 109-1 Performed By: #### L 100.0100 ####[facility] [address] [place], [address] WBC (Bld) [#/Vol] 9.6 10*3/uL Normal 4.4-11.0 [facility] Comment on above: Order Comment: 109-1 Performed By: #### L 100.0100 ####[facility] [address] [place], [address] Eosinophil percentageOrdered By: Renard Burgos on 07-29-2024 Eosinophils/100 WBC (Bld) 0.7 % 0-5 [facility] Erythrocyte distribution wid th ratioOrdered By: Renard Burgos on 07-29-2024 Erythrocyte distribution width (RBC) [Ratio] 12.8 % 11.6-14.6 [facility] Erythrocyte distribution wid th standard deviationOrdered By: Renard Burgos on 07-29-2024 Erythrocyte distribution width (RBC) [Entitic vol] 41.9 fL 35.1-43.9 [facility] Erythrocyte distribution width (RBC) [Ratio] 41.9 fl 35.1-43.9 [facility] Hematocrit Auto (Bld) [Volum e fraction]Ordered By: Renard Burgos on 07-29-2024 Hematocrit (Bld) [Volume fraction] 40.7 % 40-54 [facility] Hemoglobin measurementOrdere d By: Renard Burgos on 07-29-2024 Hemoglobin (Bld) [Mass/Vol] 13.5 g/dL 13.0-16.5 [facility] Immature granulocytes/100 WB C Auto (Bld)Ordered By: Renard Burgos on 07-29-2024 Immature granulocytes/100 WBC (Bld) 0.400 % 0.0-0.9 [facility] Comment on above: IG% - Immature Granu locytes (promyelocytes, myelocytes and metamyelocytes) > 1% indicates that a LEFT SHIFT is Present. Lymphocytes Auto (Unsp spec) [#/Vol]Ordered By: Renard Burgos on 07-29-2024 Lymphocytes (Bld) [#/Vol] 1.93 10*3/uL 0.83-4.51 [facility] Lymphocytes/100 WBC Auto (Un sp spec)Ordered By: Renard Burgos on 07-29-2024 Lymphocytes/100 WBC (Bld) 20.2 % 19-41 [facility] MCV (mean corpuscular volume ) determinationOrdered By: Renard Burgos on 07-29-2024 MCV (RBC) [Entitic vol] 90.0 fL 80-94 [facility] Mean corpuscular hemoglobin (MCH) determinationOrdered By: Renard Burgos on 07-29-2024 MCH (RBC) [Entitic mass] 29.9 pg 27.0-32.0 [facility] Mean corpuscular hemoglobin concentration (MCHC) determinationOrdered By: Renard Burgos on 07-29-2024 MCHC (RBC) [Mass/Vol] 33.2 g/dL 32-36 [facility] Mean platelet volume determi nationOrdered By: Renard Burgos on 07-29-2024 Platelet mean volume (Bld) [Entitic vol] 11.2 fL 6.2-12.0 [facility] Monocyte percentageOrdered B y: Renard Burgos on 07-29-2024 Monocytes/100 WBC (Bld) 7.1 % 0-10 [facility] Neutrophil percentageOrdered By: Renard Burgos on 07-29-2024 Neutrophils/100 WBC (Bld) 71.1 % High 47-70 [facility] Nucleated red blood cell per centageOrdered By: Renard Burgos on 07-29-2024 Nucleated RBC/100 WBC (Bld) [Ratio] 0 % 0-5 [facility] Platelet countOrdered By: Garrick Bhatt on 07-29-2024 Platelets (Bld) [#/Vol] 218 10*3/uL 150-450 [facility] RBC Auto (Bld) [#/Vol]Ordere d By: Renard Burgos on 07-29-2024 RBC (Bld) [#/Vol] 4.52 10*6/uL Low 4.6-6.2 [facility] White blood cell (WBC) count Ordered By: Renard Burgos on 07-29-2024 WBC (Bld) [#/Vol] 9.6 10*3/uL 4.4-11.0 [facility] Absolute lymphocyte countOrd ered By: Renard Burgos on 07-22-2024 Lymphocytes Auto (Unsp spec) [#/Vol] 1.90 10*3/uL 0.83-4.51 [facility] Absolute neutrophil countOrd ered By: Renard Burgos on 07-22-2024 Neutrophils (Bld) [#/Vol] 5.2 10*3/uL 2.0-7.7 [facility] Automated lymphocyte count a s percentage of total leukocytesOrdered By: Renard Burgos on 07-22-2024 Lymphocytes/100 WBC Auto (Unsp spec) 23.9 % 19-41 [facility] Basophil percentageOrdered B y: Renard Burgos on 07-22-2024 Basophils/100 WBC (Bld) 0.6 % 0-1 [facility] CBC W/Diff, Automatedon 06-30 Absolute Lymph 1.90 X10 3/uL Normal 0.83-4.51 [facility] Comment on above: Order Comment: 109.1 Performed By: #### L 100.0100 ####[facility] [address] [place], [address] Absolute Neut 5.2 X10 3/uL Normal 2.0-7.7 [facility] Comment on above: Order Comment: 109.1 Performed By: #### L 100.0100 ####[facility] [address] [place], [address] Basophils/100 WBC (Bld) 0.6 % Normal 0-1 [facility] Comment on above: Order Comment: 109.1 Performed By: #### L 100.0100 ####[facility] [address] [place], [address] Eosinophils/100 WBC (Bld) 0.9 % Normal 0-5 [facility] Comment on above: Order Comment: 109.1 Performed By: #### L 100.0100 ####[facility] [address] [place], [address] Erythrocyte distribution width (RBC) [Ratio] 12.9 % Normal 11.6-14.6 [facility] Comment on above: Order Comment: 109.1 Performed By: #### L 100.0100 ####[facility] [address] [place], [address] Hematocrit (Bld) [Volume fraction] 41.4 % Normal 40-54 [facility] Comment on above: Order Comment: 109.1 Performed By: #### L 100.0100 ####[facility] [address] [place], [address] Hemoglobin (Bld) [Mass/Vol] 13.5 g/dL Normal 13.0-16.5 [facility] Comment on above: Order Comment: 109.1 Performed By: #### L 100.0100 ####[facility] [address] [place], [address] IG% 0.300 Normal 0.0-0.9 [facility] Comment on above: Order Comment: 109.1 Result Comment: IG% - Immature Granulocytes (promyelocytes, myelocytes andmetamyelocytes) > 1% indicates that a LEFT SHIFT is Present. Performed By: #### L 100.0100 ####[facility] [address] [place], [address] Lymphocytes/100 WBC (Bld) 23.9 % Normal 19-41 [facility] Comment on above: Order Comment: 109.1 Performed By: #### L 100.0100 ####[facility] [address] [place], [address] MCH (RBC) [Entitic mass] 29.8 pg Normal 27.0-32.0 [facility] Comment on above: Order Comment: 109.1 Performed By: #### L 100.0100 ####[facility] [address] [place], [address] MCHC (RBC) [Mass/Vol] 32.6 g/dL Normal 32-36 [facility] Comment on above: Order Comment: 109.1 Performed By: #### L 100.0100 ####[facility] [address] [place], [address] MCV (RBC) [Entitic vol] 91.4 fL Normal 80-94 [facility] Comment on above: Order Comment: 109.1 Performed By: #### L 100.0100 ####[facility] [address] [place], [address] Monocytes/100 WBC (Bld) 9.4 % Normal 0-10 [facility] Comment on above: Order Comment: 109.1 Performed By: #### L 100.0100 ####[facility] [address] [place], [address] Neutrophils/100 WBC (Bld) 64.9 % Normal 47-70 [facility] Comment on above: Order Comment: 109.1 Performed By: #### L 100.0100 ####[facility] [address] [place], [address] Nucleated RBC (Bld) [#/Vol] 0 10*3/uL Normal 0-5 [facility] Comment on above: Order Comment: 109.1 Performed By: #### L 100.0100 ####[facility] [address] [place], [address] Platelet mean volume (Bld) [Entitic vol] 11.5 fL Normal 6.2-12.0 [facility] Comment on above: Order Comment: 109.1 Performed By: #### L 100.0100 ####[facility] [address] [place], [address] Platelets (Bld) [#/Vol] 202 10*3/uL Normal 150-450 [facility] Comment on above: Order Comment: 109.1 Performed By: #### L 100.0100 ####[facility] [address] [place], [address] RBC (Bld) [#/Vol] 4.53 10*6/uL Low 4.6-6.2 [facility] Comment on above: Order Comment: 109.1 Performed By: #### L 100.0100 ####[facility] [address] [place], [address] RDW SD 42.7 fl Normal 35.1-43.9 [facility] Comment on above: Order Comment: 109.1 Performed By: #### L 100.0100 ####[facility] [address] [place], [address] WBC (Bld) [#/Vol] 8.0 10*3/uL Normal 4.4-11.0 [facility] Comment on above: Order Comment: 109.1 Performed By: #### L 100.0100 ####[facility] [address] [place], [address] Eosinophil percentageOrdered By: Renard Burgos on 07-22-2024 Eosinophils/100 WBC (Bld) 0.9 % 0-5 [facility] Erythrocyte distribution wid th ratioOrdered By: Renard Burgos on 07-22-2024 Erythrocyte distribution width (RBC) [Ratio] 12.9 % 11.6-14.6 [facility] Erythrocyte distribution wid th standard deviationOrdered By: Renard Burgos on 07-22-2024 Erythrocyte distribution width (RBC) [Entitic vol] 42.7 fL 35.1-43.9 [facility] Erythrocyte distribution width (RBC) [Ratio] 42.7 fl 35.1-43.9 [facility] Hematocrit Auto (Bld) [Volum e fraction]Ordered By: Renard Burgos on 07-22-2024 Hematocrit (Bld) [Volume fraction] 41.4 % 40-54 [facility] Hemoglobin measurementOrdere d By: Renard Burgos on 07-22-2024 Hemoglobin (Bld) [Mass/Vol] 13.5 g/dL 13.0-16.5 [facility] Immature granulocytes/100 WB C Auto (Bld)Ordered By: Renard Burgos on 07-22-2024 Immature granulocytes/100 WBC (Bld) 0.300 % 0.0-0.9 [facility] Comment on above: IG% - Immature Granu locytes (promyelocytes, myelocytes and metamyelocytes) > 1% indicates that a LEFT SHIFT is Present. Lymphocytes Auto (Unsp spec) [#/Vol]Ordered By: Renard Burgos on 07-22-2024 Lymphocytes (Bld) [#/Vol] 1.90 10*3/uL 0.83-4.51 [facility] Lymphocytes/100 WBC Auto (Un sp spec)Ordered By: Renard Burgos on 07-22-2024 Lymphocytes/100 WBC (Bld) 23.9 % 19-41 [facility] MCV (mean corpuscular volume ) determinationOrdered By: Renard Burgos on 07-22-2024 MCV (RBC) [Entitic vol] 91.4 fL 80-94 [facility] Mean corpuscular hemoglobin (MCH) determinationOrdered By: Renard Burgos on 07-22-2024 MCH (RBC) [Entitic mass] 29.8 pg 27.0-32.0 [facility] Mean corpuscular hemoglobin concentration (MCHC) determinationOrdered By: Renard Burgos on 07-22-2024 MCHC (RBC) [Mass/Vol] 32.6 g/dL 32-36 [facility] Mean platelet volume determi nationOrdered By: Renard Burgos on 07-22-2024 Platelet mean volume (Bld) [Entitic vol] 11.5 fL 6.2-12.0 [facility] Monocyte percentageOrdered B y: Renard Burgos on 07-22-2024 Monocytes/100 WBC (Bld) 9.4 % 0-10 [facility] Neutrophil percentageOrdered By: Renard Burgos on 07-22-2024 Neutrophils/100 WBC (Bld) 64.9 % 47-70 [facility] Nucleated red blood cell per centageOrdered By: Renard Burgos on 07-22-2024 Nucleated RBC/100 WBC (Bld) [Ratio] 0 % 0-5 [facility] Platelet countOrdered By: Garrick Bhatt on 07-22-2024 Platelets (Bld) [#/Vol] 202 10*3/uL 150-450 [facility] RBC Auto (Bld) [#/Vol]Ordere d By: Renard Burgos on 07-22-2024 RBC (Bld) [#/Vol] 4.53 10*6/uL Low 4.6-6.2 [facility] White blood cell (WBC) count Ordered By: Renard Burgos on 07-22-2024 WBC (Bld) [#/Vol] 8.0 10*3/uL 4.4-11.0 [facility] L506.1001on 07-16-2024 Vitamin D 25-OH 21.8 ng/mL Low 30-100 [facility] Comment on above: Order Comment: 109 Result Comment: Edilma min D StatusDeficiency: <20 ng/mL (50nmol/L)Insufficiency: 20-30 ng/mL (50-75 nmol/L)Sufficiency: 30-100 ng/mL (75-250 nmol/L)Toxicity: >100 ng/mL (>250 nmol/L) Performed By: #### L 506.1001 ####[facility] [address] [place], [place], [id number] Vitamin D, 25-hydroxyOrdered By: Renard Burgos on 07-16-2024 Vitamin D 25-Hydroxy 21.8 ng/mL Low 30-100 [facility] Comment on above: Vitamin D StatusDefi ciency: <20 ng/mL (50nmol/L)Insufficiency: 20-30 ng/mL (50-75 nmol/L)Sufficiency: 30-100 ng/mL (75-250 nmol/L)Toxicity: >100 ng/mL (>250 nmol/L) Absolute lymphocyte countOrd ered By: Renard Burgos on 07-15-2024 Lymphocytes Auto (Unsp spec) [#/Vol] 2.10 10*3/uL 0.83-4.51 [facility] Absolute neutrophil countOrd ered By: Renard Burgos on 07-15-2024 Neutrophils (Bld) [#/Vol] 6.9 10*3/uL 2.0-7.7 [facility] Automated lymphocyte count a s percentage of total leukocytesOrdered By: Renard Burgos on 07-15-2024 Lymphocytes/100 WBC Auto (Unsp spec) 21.0 % 19-41 [facility] Basophil percentageOrdered B y: Renard Burgos on 07-15-2024 Basophils/100 WBC (Bld) 0.5 % 0-1 [facility] CBC W/Diff, Automatedon 06-29 Absolute Lymph 2.10 X10 3/uL Normal 0.83-4.51 [facility] Comment on above: Order Comment: 109.1 Performed By: #### L 100.0100 ####[facility] [address] [place], [address] Absolute Neut 6.9 X10 3/uL Normal 2.0-7.7 [facility] Comment on above: Order Comment: 109.1 Performed By: #### L 100.0100 ####[facility] [address] [place], [address] Basophils/100 WBC (Bld) 0.5 % Normal 0-1 [facility] Comment on above: Order Comment: 109.1 Performed By: #### L 100.0100 ####[facility] [address] [place], [address] Eosinophils/100 WBC (Bld) 1.2 % Normal 0-5 [facility] Comment on above: Order Comment: 109.1 Performed By: #### L 100.0100 ####[facility] [address] [place], [address] Erythrocyte distribution width (RBC) [Ratio] 12.9 % Normal 11.6-14.6 [facility] Comment on above: Order Comment: 109.1 Performed By: #### L 100.0100 ####[facility] [address] [place], [address] Hematocrit (Bld) [Volume fraction] 41.0 % Normal 40-54 [facility] Comment on above: Order Comment: 109.1 Performed By: #### L 100.0100 ####[facility] [address] [place], [address] Hemoglobin (Bld) [Mass/Vol] 13.4 g/dL Normal 13.0-16.5 [facility] Comment on above: Order Comment: 109.1 Performed By: #### L 100.0100 ####[facility] [address] [place], [address] IG% 0.300 Normal 0.0-0.9 [facility] Comment on above: Order Comment: 109.1 Result Comment: IG% - Immature Granulocytes (promyelocytes, myelocytes andmetamyelocytes) > 1% indicates that a LEFT SHIFT is Present. Performed By: #### L 100.0100 ####[facility] [address] [place], [address] Lymphocytes/100 WBC (Bld) 21.0 % Normal 19-41 [facility] Comment on above: Order Comment: 109.1 Performed By: #### L 100.0100 ####[facility] [address] [place], [address] MCH (RBC) [Entitic mass] 29.7 pg Normal 27.0-32.0 [facility] Comment on above: Order Comment: 109.1 Performed By: #### L 100.0100 ####[facility] [address] [place], [address] MCHC (RBC) [Mass/Vol] 32.7 g/dL Normal 32-36 [facility] Comment on above: Order Comment: 109.1 Performed By: #### L 100.0100 ####[facility] [address] [place], [address] MCV (RBC) [Entitic vol] 90.9 fL Normal 80-94 [facility] Comment on above: Order Comment: 109.1 Performed By: #### L 100.0100 ####[facility] [address] [place], [address] Monocytes/100 WBC (Bld) 7.6 % Normal 0-10 [facility] Comment on above: Order Comment: 109.1 Performed By: #### L 100.0100 ####[facility] [address] [place], [address] Neutrophils/100 WBC (Bld) 69.4 % Normal 47-70 [facility] Comment on above: Order Comment: 109.1 Performed By: #### L 100.0100 ####[facility] [address] [place], [address] Nucleated RBC (Bld) [#/Vol] 0 10*3/uL Normal 0-5 [facility] Comment on above: Order Comment: 109.1 Performed By: #### L 100.0100 ####[facility] [address] [place], [address] Platelet mean volume (Bld) [Entitic vol] 11.4 fL Normal 6.2-12.0 [facility] Comment on above: Order Comment: 109.1 Performed By: #### L 100.0100 ####[facility] [address] [place], [address] Platelets (Bld) [#/Vol] 206 10*3/uL Normal 150-450 [facility] Comment on above: Order Comment: 109.1 Performed By: #### L 100.0100 ####[facility] [address] [place], [address] RBC (Bld) [#/Vol] 4.51 10*6/uL Low 4.6-6.2 [facility] Comment on above: Order Comment: 109.1 Performed By: #### L 100.0100 ####[facility] [address] [place], [address] RDW SD 42.3 fl Normal 35.1-43.9 [facility] Comment on above: Order Comment: 109.1 Performed By: #### L 100.0100 ####[facility] [address] [place], [address] WBC (Bld) [#/Vol] 10.0 10*3/uL Normal 4.4-11.0 [facility] Comment on above: Order Comment: 109.1 Performed By: #### L 100.0100 ####[facility] [address] [place], [address] Eosinophil percentageOrdered By: Renard Burgos on 07-15-2024 Eosinophils/100 WBC (Bld) 1.2 % 0-5 [facility] Erythrocyte distribution wid th ratioOrdered By: Renard Burgos on 07-15-2024 Erythrocyte distribution width (RBC) [Ratio] 12.9 % 11.6-14.6 [facility] Erythrocyte distribution wid th standard deviationOrdered By: Renard Burgos on 07-15-2024 Erythrocyte distribution width (RBC) [Entitic vol] 42.3 fL 35.1-43.9 [facility] Erythrocyte distribution width (RBC) [Ratio] 42.3 fl 35.1-43.9 [facility] Hematocrit Auto (Bld) [Volum e fraction]Ordered By: Renard Burgos on 07-15-2024 Hematocrit (Bld) [Volume fraction] 41.0 % 40-54 [facility] Hemoglobin measurementOrdere d By: Renard Burgos on 07-15-2024 Hemoglobin (Bld) [Mass/Vol] 13.4 g/dL 13.0-16.5 [facility] Immature granulocytes/100 WB C Auto (Bld)Ordered By: Renard Burgos on 07-15-2024 Immature granulocytes/100 WBC (Bld) 0.300 % 0.0-0.9 [facility] Comment on above: IG% - Immature Granu locytes (promyelocytes, myelocytes and metamyelocytes) > 1% indicates that a LEFT SHIFT is Present. Lymphocytes Auto (Unsp spec) [#/Vol]Ordered By: Renard Burgos on 07-15-2024 Lymphocytes (Bld) [#/Vol] 2.10 10*3/uL 0.83-4.51 [facility] Lymphocytes/100 WBC Auto (Un sp spec)Ordered By: Renard Burgos on 07-15-2024 Lymphocytes/100 WBC (Bld) 21.0 % 19-41 [facility] MCV (mean corpuscular volume ) determinationOrdered By: Renard Burgos on 07-15-2024 MCV (RBC) [Entitic vol] 90.9 fL 80-94 [facility] Mean corpuscular hemoglobin (MCH) determinationOrdered By: Renard Burgos on 07-15-2024 MCH (RBC) [Entitic mass] 29.7 pg 27.0-32.0 [facility] Mean corpuscular hemoglobin concentration (MCHC) determinationOrdered By: Renard Burgos on 07-15-2024 MCHC (RBC) [Mass/Vol] 32.7 g/dL 32-36 [facility] Mean platelet volume determi nationOrdered By: Renard Burgos on 07-15-2024 Platelet mean volume (Bld) [Entitic vol] 11.4 fL 6.2-12.0 [facility] Monocyte percentageOrdered B y: Renard Burgos on 07-15-2024 Monocytes/100 WBC (Bld) 7.6 % 0-10 [facility] Neutrophil percentageOrdered By: Renard Burgos on 07-15-2024 Neutrophils/100 WBC (Bld) 69.4 % 47-70 [facility] Nucleated red blood cell per centageOrdered By: Renard Burgos on 07-15-2024 Nucleated RBC/100 WBC (Bld) [Ratio] 0 % 0-5 [facility] Platelet countOrdered By: Garrick Bhatt on 07-15-2024 Platelets (Bld) [#/Vol] 206 10*3/uL 150-450 [facility] RBC Auto (Bld) [#/Vol]Ordere d By: Renard Burgos on 07-15-2024 RBC (Bld) [#/Vol] 4.51 10*6/uL Low 4.6-6.2 [facility] White blood cell (WBC) count Ordered By: Renard Burgos on 07-15-2024 WBC (Bld) [#/Vol] 10.0 10*3/uL 4.4-11.0 [facility] Absolute lymphocyte countOrd ered By: Renard Burgos on 07-08-2024 Lymphocytes Auto (Unsp spec) [#/Vol] 2.02 10*3/uL 0.83-4.51 [facility] Absolute neutrophil countOrd ered By: Renard Burgos on 07-08-2024 Neutrophils (Bld) [#/Vol] 7.2 10*3/uL 2.0-7.7 [facility] Automated lymphocyte count a s percentage of total leukocytesOrdered By: Renard Burgos on 07-08-2024 Lymphocytes/100 WBC Auto (Unsp spec) 19.7 % 19-41 [facility] Basophil percentageOrdered B y: Renard Burgos on 07-08-2024 Basophils/100 WBC (Bld) 0.6 % 0-1 [facility] CBC W/Diff, Automatedon 06-29 Absolute Lymph 2.02 X10 3/uL Normal 0.83-4.51 [facility] Comment on above: Order Comment: 109-1 Performed By: #### L 100.0100 ####[facility] [address] [place], [place], [id number] Absolute Neut 7.2 X10 3/uL Normal 2.0-7.7 [facility] Comment on above: Order Comment: 109-1 Performed By: #### L 100.0100 ####[facility] [address] [place], [address] Basophils/100 WBC (Bld) 0.6 % Normal 0-1 [facility] Comment on above: Order Comment: 109-1 Performed By: #### L 100.0100 ####[facility] [address] [place], [address] Eosinophils/100 WBC (Bld) 1.5 % Normal 0-5 [facility] Comment on above: Order Comment: 109-1 Performed By: #### L 100.0100 ####[facility] [address] [place], [address] Erythrocyte distribution width (RBC) [Ratio] 12.9 % Normal 11.6-14.6 [facility] Comment on above: Order Comment: 109-1 Performed By: #### L 100.0100 ####[facility] [address] [place], [address] Hematocrit (Bld) [Volume fraction] 40.6 % Normal 40-54 [facility] Comment on above: Order Comment: 109-1 Performed By: #### L 100.0100 ####[facility] [address] [place], [address] Hemoglobin (Bld) [Mass/Vol] 13.6 g/dL Normal 13.0-16.5 [facility] Comment on above: Order Comment: 109-1 Performed By: #### L 100.0100 ####[facility] [address] [place], [address] IG% 0.500 Normal 0.0-0.9 [facility] Comment on above: Order Comment: 109-1 Result Comment: IG% - Immature Granulocytes (promyelocytes, myelocytes andmetamyelocytes) > 1% indicates that a LEFT SHIFT is Present. Performed By: #### L 100.0100 ####[facility] [address] [place], [address] Lymphocytes/100 WBC (Bld) 19.7 % Normal 19-41 [facility] Comment on above: Order Comment: 109-1 Performed By: #### L 100.0100 ####[facility] [address] [place], [address] MCH (RBC) [Entitic mass] 30.5 pg Normal 27.0-32.0 [facility] Comment on above: Order Comment: 109-1 Performed By: #### L 100.0100 ####[facility] [address] [place], [address] MCHC (RBC) [Mass/Vol] 33.5 g/dL Normal 32-36 [facility] Comment on above: Order Comment: 109-1 Performed By: #### L 100.0100 ####[facility] [address] [place], [address] MCV (RBC) [Entitic vol] 91.0 fL Normal 80-94 [facility] Comment on above: Order Comment: 109-1 Performed By: #### L 100.0100 ####[facility] [address] [place], [address] Monocytes/100 WBC (Bld) 7.4 % Normal 0-10 [facility] Comment on above: Order Comment: 109-1 Performed By: #### L 100.0100 ####[facility] [address] [place], [address] Neutrophils/100 WBC (Bld) 70.3 % High 47-70 [facility] Comment on above: Order Comment: 109-1 Performed By: #### L 100.0100 ####[facility] [address] [place], [address] Nucleated RBC (Bld) [#/Vol] 0 10*3/uL Normal 0-5 [facility] Comment on above: Order Comment: 109-1 Performed By: #### L 100.0100 ####[facility] [address] [place], [address] Platelet mean volume (Bld) [Entitic vol] 11.1 fL Normal 6.2-12.0 [facility] Comment on above: Order Comment: 109-1 Performed By: #### L 100.0100 ####[facility] [address] [place], [address] Platelets (Bld) [#/Vol] 207 10*3/uL Normal 150-450 [facility] Comment on above: Order Comment: 109-1 Performed By: #### L 100.0100 ####[facility] [address] [place], [address] RBC (Bld) [#/Vol] 4.46 10*6/uL Low 4.6-6.2 [facility] Comment on above: Order Comment: 109-1 Performed By: #### L 100.0100 ####[facility] [address] [place], [address] RDW SD 42.5 fl Normal 35.1-43.9 [facility] Comment on above: Order Comment: 109-1 Performed By: #### L 100.0100 ####[facility] [address] [place], [address] WBC (Bld) [#/Vol] 10.3 10*3/uL Normal 4.4-11.0 [facility] Comment on above: Order Comment: 109-1 Performed By: #### L 100.0100 ####[facility] [address] [place], [address] Eosinophil percentageOrdered By: Renard Burgos on 07-08-2024 Eosinophils/100 WBC (Bld) 1.5 % 0-5 [facility] Erythrocyte distribution wid th ratioOrdered By: Renard Burgos on 07-08-2024 Erythrocyte distribution width (RBC) [Ratio] 12.9 % 11.6-14.6 [facility] Erythrocyte distribution wid th standard deviationOrdered By: Renard Burgos on 07-08-2024 Erythrocyte distribution width (RBC) [Entitic vol] 42.5 fL 35.1-43.9 [facility] Erythrocyte distribution width (RBC) [Ratio] 42.5 fl 35.1-43.9 [facility] Hematocrit Auto (Bld) [Volum e fraction]Ordered By: Reanrd Burgos on 07-08-2024 Hematocrit (Bld) [Volume fraction] 40.6 % 40-54 [facility] Hemoglobin measurementOrdere d By: Renard Burgos on 07-08-2024 Hemoglobin (Bld) [Mass/Vol] 13.6 g/dL 13.0-16.5 [facility] Immature granulocytes/100 WB C Auto (Bld)Ordered By: Renard Burgos on 07-08-2024 Immature granulocytes/100 WBC (Bld) 0.500 % 0.0-0.9 [facility] Comment on above: IG% - Immature Granu locytes (promyelocytes, myelocytes and metamyelocytes) > 1% indicates that a LEFT SHIFT is Present. Lymphocytes Auto (Unsp spec) [#/Vol]Ordered By: Renard Burgos on 07-08-2024 Lymphocytes (Bld) [#/Vol] 2.02 10*3/uL 0.83-4.51 [facility] Lymphocytes/100 WBC Auto (Un sp spec)Ordered By: Renard Burgos on 07-08-2024 Lymphocytes/100 WBC (Bld) 19.7 % 19-41 [facility] MCV (mean corpuscular volume ) determinationOrdered By: Renard Burgos on 07-08-2024 MCV (RBC) [Entitic vol] 91.0 fL 80-94 [facility] Mean corpuscular hemoglobin (MCH) determinationOrdered By: Renard Burgos on 07-08-2024 MCH (RBC) [Entitic mass] 30.5 pg 27.0-32.0 [facility] Mean corpuscular hemoglobin concentration (MCHC) determinationOrdered By: Renard Burgos on 07-08-2024 MCHC (RBC) [Mass/Vol] 33.5 g/dL 32-36 [facility] Mean platelet volume determi nationOrdered By: Renard Burgos on 07-08-2024 Platelet mean volume (Bld) [Entitic vol] 11.1 fL 6.2-12.0 [facility] Monocyte percentageOrdered B y: Renard Burgos on 07-08-2024 Monocytes/100 WBC (Bld) 7.4 % 0-10 [facility] Neutrophil percentageOrdered By: Renard Burgos on 07-08-2024 Neutrophils/100 WBC (Bld) 70.3 % High 47-70 [facility] Nucleated red blood cell per centageOrdered By: Renard Burgos on 07-08-2024 Nucleated RBC/100 WBC (Bld) [Ratio] 0 % 0-5 [facility] Platelet countOrdered By: Garrick Bhatt on 07-08-2024 Platelets (Bld) [#/Vol] 207 10*3/uL 150-450 [facility] RBC Auto (Bld) [#/Vol]Ordere d By: Renard Burgos on 07-08-2024 RBC (Bld) [#/Vol] 4.46 10*6/uL Low 4.6-6.2 [facility] White blood cell (WBC) count Ordered By: Renard Burgos on 07-08-2024 WBC (Bld) [#/Vol] 10.3 10*3/uL 4.4-11.0 [facility] Absolute lymphocyte countOrd ered By: Renard Burgos on 07-01-2024 Lymphocytes Auto (Unsp spec) [#/Vol] 2.03 10*3/uL 0.83-4.51 [facility] Absolute neutrophil countOrd ered By: Renard Burgos on 07-01-2024 Neutrophils (Bld) [#/Vol] 7.0 10*3/uL 2.0-7.7 [facility] Automated lymphocyte count a s percentage of total leukocytesOrdered By: Renard Burgos on 07-01-2024 Lymphocytes/100 WBC Auto (Unsp spec) 20.3 % 19-41 [facility] Basophil percentageOrdered B y: Renard Burgos on 07-01-2024 Basophils/100 WBC (Bld) 0.6 % 0-1 [facility] CBC W/Diff, Automatedon Absolute Lymph 2.03 X10 3/uL Normal 0.83-4.51 [facility] Comment on above: Order Comment: 109 Performed By: #### L 100.0100 ####[facility] [address] [place], [address] Absolute Neut 7.0 X10 3/uL Normal 2.0-7.7 [facility] Comment on above: Order Comment: 109 Performed By: #### L 100.0100 ####[facility] [address] [place], [address] Basophils/100 WBC (Bld) 0.6 % Normal 0-1 [facility] Comment on above: Order Comment: 109 Performed By: #### L 100.0100 ####[facility] [address] [place], [address] Eosinophils/100 WBC (Bld) 1.3 % Normal 0-5 [facility] Comment on above: Order Comment: 109 Performed By: #### L 100.0100 ####[facility] [address] [place], [address] Erythrocyte distribution width (RBC) [Ratio] 13.1 % Normal 11.6-14.6 [facility] Comment on above: Order Comment: 109 Performed By: #### L 100.0100 ####[facility] [address] [place], [address] Hematocrit (Bld) [Volume fraction] 41.7 % Normal 40-54 [facility] Comment on above: Order Comment: 109 Performed By: #### L 100.0100 ####[facility] [address] [place], [address] Hemoglobin (Bld) [Mass/Vol] 13.6 g/dL Normal 13.0-16.5 [facility] Comment on above: Order Comment: 109 Performed By: #### L 100.0100 ####[facility] [address] [place], [address] IG% 0.500 Normal 0.0-0.9 [facility] Comment on above: Order Comment: 109 Result Comment: IG% - Immature Granulocytes (promyelocytes, myelocytes andmetamyelocytes) > 1% indicates that a LEFT SHIFT is Present. Performed By: #### L 100.0100 ####[facility] [address] [place], [address] Lymphocytes/100 WBC (Bld) 20.3 % Normal 19-41 [facility] Comment on above: Order Comment: 109 Performed By: #### L 100.0100 ####[facility] [address] [place], [address] MCH (RBC) [Entitic mass] 29.6 pg Normal 27.0-32.0 [facility] Comment on above: Order Comment: 109 Performed By: #### L 100.0100 ####[facility] [address] [place], [address] MCHC (RBC) [Mass/Vol] 32.6 g/dL Normal 32-36 [facility] Comment on above: Order Comment: 109 Performed By: #### L 100.0100 ####[facility] [address] [place], [address] MCV (RBC) [Entitic vol] 90.8 fL Normal 80-94 [facility] Comment on above: Order Comment: 109 Performed By: #### L 100.0100 ####[facility] [address] [place], [address] Monocytes/100 WBC (Bld) 6.8 % Normal 0-10 [facility] Comment on above: Order Comment: 109 Performed By: #### L 100.0100 ####[facility] [address] [place], [address] Neutrophils/100 WBC (Bld) 70.5 % High 47-70 [facility] Comment on above: Order Comment: 109 Performed By: #### L 100.0100 ####[facility] [address] [place], [address] Nucleated RBC (Bld) [#/Vol] 0 10*3/uL Normal 0-5 [facility] Comment on above: Order Comment: 109 Performed By: #### L 100.0100 ####[facility] [address] [place], [address] Platelet mean volume (Bld) [Entitic vol] 11.0 fL Normal 6.2-12.0 [facility] Comment on above: Order Comment: 109 Performed By: #### L 100.0100 ####[facility] [address] [place], [address] Platelets (Bld) [#/Vol] 208 10*3/uL Normal 150-450 [facility] Comment on above: Order Comment: 109 Performed By: #### L 100.0100 ####[facility] [address] [place], [address] RBC (Bld) [#/Vol] 4.59 10*6/uL Low 4.6-6.2 [facility] Comment on above: Order Comment: 109 Performed By: #### L 100.0100 ####[facility] [address] [place], [address] RDW SD 42.8 fl Normal 35.1-43.9 [facility] Comment on above: Order Comment: 109 Performed By: #### L 100.0100 ####[facility] [address] [place], [address] WBC (Bld) [#/Vol] 10.0 10*3/uL Normal 4.4-11.0 [facility] Comment on above: Order Comment: 109 Performed By: #### L 100.0100 ####[facility] [address] [place], [address] Eosinophil percentageOrdered By: Renard Burgos on 07-01-2024 Eosinophils/100 WBC (Bld) 1.3 % 0-5 [facility] Erythrocyte distribution wid th ratioOrdered By: Renard Burgos on 07-01-2024 Erythrocyte distribution width (RBC) [Ratio] 13.1 % 11.6-14.6 [facility] Erythrocyte distribution wid th standard deviationOrdered By: Renard Burgos on 07-01-2024 Erythrocyte distribution width (RBC) [Entitic vol] 42.8 fL 35.1-43.9 [facility] Erythrocyte distribution width (RBC) [Ratio] 42.8 fl 35.1-43.9 [facility] Hematocrit Auto (Bld) [Volum e fraction]Ordered By: Renard Burgos on 07-01-2024 Hematocrit (Bld) [Volume fraction] 41.7 % 40-54 [facility] Hemoglobin measurementOrdere d By: Renard Burgos on 07-01-2024 Hemoglobin (Bld) [Mass/Vol] 13.6 g/dL 13.0-16.5 [facility] Immature granulocytes/100 WB C Auto (Bld)Ordered By: Renard Burgos on 07-01-2024 Immature granulocytes/100 WBC (Bld) 0.500 % 0.0-0.9 [facility] Comment on above: IG% - Immature Granu locytes (promyelocytes, myelocytes and metamyelocytes) > 1% indicates that a LEFT SHIFT is Present. Lymphocytes Auto (Unsp spec) [#/Vol]Ordered By: Renard Burgos on 07-01-2024 Lymphocytes (Bld) [#/Vol] 2.03 10*3/uL 0.83-4.51 [facility] Lymphocytes/100 WBC Auto (Un sp spec)Ordered By: Renard Burgos on 07-01-2024 Lymphocytes/100 WBC (Bld) 20.3 % 19-41 [facility] MCV (mean corpuscular volume ) determinationOrdered By: Renard Burgos on 07-01-2024 MCV (RBC) [Entitic vol] 90.8 fL 80-94 [facility] Mean corpuscular hemoglobin (MCH) determinationOrdered By: Renard Burgos on 07-01-2024 MCH (RBC) [Entitic mass] 29.6 pg 27.0-32.0 [facility] Mean corpuscular hemoglobin concentration (MCHC) determinationOrdered By: Renard Burgos on 07-01-2024 MCHC (RBC) [Mass/Vol] 32.6 g/dL 32-36 [facility] Mean platelet volume determi nationOrdered By: Renard Burgos on 07-01-2024 Platelet mean volume (Bld) [Entitic vol] 11.0 fL 6.2-12.0 [facility] Monocyte percentageOrdered B y: Renard Burgos on 07-01-2024 Monocytes/100 WBC (Bld) 6.8 % 0-10 [facility] Neutrophil percentageOrdered By: Renard Burgos on 07-01-2024 Neutrophils/100 WBC (Bld) 70.5 % High 47-70 [facility] Nucleated red blood cell per centageOrdered By: Renard Burgos on 07-01-2024 Nucleated RBC/100 WBC (Bld) [Ratio] 0 % 0-5 [facility] Platelet countOrdered By: Garrick Bhatt on 07-01-2024 Platelets (Bld) [#/Vol] 208 10*3/uL 150-450 [facility] RBC Auto (Bld) [#/Vol]Ordere d By: Renard Burgos on 07-01-2024 RBC (Bld) [#/Vol] 4.59 10*6/uL Low 4.6-6.2 [facility] White blood cell (WBC) count Ordered By: Renard Burgos on 07-01-2024 WBC (Bld) [#/Vol] 10.0 10*3/uL 4.4-11.0 [facility] Urine Cultureon 06-30-2024 URC Normal [facility] Comment on above: Performed By: #### M 100.2200, L400.0001 ####[facility] [address] [place], [address] Bilirubin Test strip Ql (U)O rdered By: Renard Burgos on 06-27-2024 Bilirubin Ql (U) Negative Negative [facility] Epithelial cells.squamous LM Ql (Urine sed)Ordered By: Renard Burgos on 06-27-2024 Epithelial cells.squamous LM.HPF (Urine sed) [#/Area] 0 /[HPF] 0-5 [facility] Glucose Ql (U)Ordered By: Garrick Bhatt on 06-27-2024 Urine Glucose (UA) Normal mg/dl Normal [facility] Ketones Test strip Ql (U)Ord ered By: Renard Burgos on 06-27-2024 Ketones Ql (U) Negative Negative [facility] Microscopic analysis of urin e for red blood cells (RBC)Ordered By: Renard Burgos on 06-27-2024 Microscopic analysis of urine for red blood cells (RBC) 0 SEEN /hpf 0-5 [facility] Urine RBC 0 SEEN /hpf 0-5 [facility] Mucus LM Ql (Urine sed)Order ed By: Renard Burgos on 06-27-2024 Mucus Ql (Urine sed) 0 SEEN /hpf [facility] Nitrite Test strip Ql (U)Ord ered By: Renard Burgos on 06-27-2024 Nitrite Ql (U) Negative Negative [facility] Protein Test strip Ql (U)Ord ered By: Renard Burgos on 06-27-2024 Protein Ql (U) 15 mg/dl High Negative [facility] Squamous epithelial cells de tection in urine sediment by light microscopyOrdered By: Renard Burgos on 06-27-2024 Epithelial cells.squamous LM Ql (Urine sed) 0 SEEN /hpf 0-5 [facility] Urinalysis, Completeon 06-27 RBC 0 SEEN Normal 0-5 [facility] Comment on above: Order Comment: ARCHANA MCBRIDE SPECIMEN Performed By: #### M 100.2200, L400.0001 ####[facility] [address] [place], [place], [id number] Urine blood detectionOrdered By: Renard Burgos on 06-27-2024 Urine Occult Blood Negative Negative [facility] Urine clarityOrdered By: Lyubov Burgos on 06-27-2024 Clarity (U) Clear Clear [facility] Urine color determinationOrd ered By: Renard Burgos on 06-27-2024 Color (U) Yellow Yellow [facility] Urine cultureOrdered By: Pet shirley Burgos on 06-27-2024 Bacteria identified Cx Nom (U) Staphylococcus warneri Abnormal [facility] Bacteria identified Cx Nom (U) Aerococcus viridans. Abnormal [facility] Bacteria identified Cx Nom (U) Presumptive C albicans Abnormal [facility] Bacteria identified Cx Nom (U) Staphylococcus warneri Abnormal [facility] Bacteria identified Cx Nom (U) Aerococcus viridans. Abnormal [facility] Bacteria identified Cx Nom (U) Presumptive C albicans Abnormal [facility] Urine glucose detectionOrder ed By: Renard Burgos on 06-27-2024 Glucose Ql (U) Normal mg/dl Normal [facility] Urine leukocyte esterase det ection by dipstickOrdered By: Renard Burgos on 06-27-2024 Leukocyte esterase Test strip Ql (U) Negative Negative [facility] Urine pHOrdered By: Renard ocampo on 06-27-2024 pH (U) 7.0 [pH] 5.0 - 8.0 [facility] Urine sediment bacteria coun t by microscopy (number/high power field)Ordered By: Renard uBrgos on 06-27-2024 Bacteria LM.HPF (Urine sed) [#/Area] 0 /[HPF] None Seen [facility] Urine specific gravity measu rementOrdered By: Renard Burgos on 06-27-2024 Specific gravity (U) [Rel density] 1.010 1.002-1.030 [facility] Urine urobilinogen measureme ntOrdered By: Renard Burgos on 06-27-2024 Urobilinogen Ql (U) 4 mg/dl High Normal [facility] Urobilinogen Ql (U)Ordered B y: Renard Burgos on 06-27-2024 Urobilinogen (U) [Mass/Vol] 4 mg/dL High Normal [facility] White blood cell countOrdere d By: Renard Burgos on 06-27-2024 Urine WBC 0 SEEN /hpf 0-5 [facility] White blood cell count 0 SEEN /hpf 0-5 [facility] CT CHEST WO IV CONTRASTon CT [...] 8:07 AM EST Cough x 2months Normal [facility] CT Chest WO contraston 06-26 Nonspecific groundglass densities are noted in the bilateral lower lobes. 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 [facility] Maria Eugenia Ruiz MD - [...] Electronically Signed Date/Time: 06/26/2024 8:[address] [facility] [address] Chest WO contrastOrdered By: Maria Eugenia Ruiz on 06-26-2024 [facility] Work Phone: Absolute lymphocyte countOrd ered By: Renard Burgos on 06-24-2024 Lymphocytes Auto (Unsp spec) [#/Vol] 1.65 10*3/uL 0.83-4.51 [facility] Absolute neutrophil countOrd ered By: Renard Burgos on 06-24-2024 Neutrophils (Bld) [#/Vol] 10.2 10*3/uL High 2.0-7.7 [facility] Automated lymphocyte count a s percentage of total leukocytesOrdered By: Renard Burgos on 06-24-2024 Lymphocytes/100 WBC Auto (Unsp spec) 12.8 % Low 19-41 [facility] Basic Metabolic Profile (BMP )on 06-24-2024 BUN/CRE 24.9 RATIO High 10-20 [facility] Comment on above: Order Comment: 109.1 Performed By: #### L 100.0100, L500.2500 ####[facility] [address] [place], [address] CA,Total 8.3 mg/dL Low 8.5-10.1 [facility] Comment on above: Order Comment: 109.1 Performed By: #### L 100.0100, L500.2500 ####[facility] [address] [place], [address] Chloride [Moles/Vol] 107 mmol/L Normal 98-107 [facility] Comment on above: Order Comment: 109.1 Performed By: #### L 100.0100, L500.2500 ####[facility] [address] [place], [address] CO2 [Moles/Vol] 24.0 mmol/L Normal 21.0-32.0 [facility] Comment on above: Order Comment: 109.1 Performed By: #### L 100.0100, L500.2500 ####[facility] [address] [place], [address] Creatinine [Mass/Vol] 0.60 mg/dL Low 0.70-1.30 [facility] Comment on above: Order Comment: 109.1 Result Comment: The validity of the calculated GFR GFRAA in patients over70 years has not been determined. Clinical correlation isessential. Performed By: #### L 100.0100, L500.2500 ####[facility] [address] [place], [address] EST GFR - AA 172 mL/min Normal >60 [facility] Comment on above: Order Comment: 109.1 Result Comment: Afri can Malagasy GFR Calc Performed By: #### L 100.0100, L500.2500 ####[facility] [address] [place], [address] GAP 8 Normal 5-15 [facility] Comment on above: Order Comment: 109.1 Performed By: #### L 100.0100, L500.2500 ####[facility] [address] [place], [address] GFR/1.73 sq M.predicted among non-blacks MDRD (S/P/Bld) [Vol rate/Area] 142 mL/min/{1.73_m2} Normal >60 [facility] Comment on above: Order Comment: 109.1 Result Comment: Non- GFR Calc Performed By: #### L 100.0100, L500.2500 ####[facility] [address] [place], [address] Glucose [Mass/Vol] 101 mg/dL Normal 74-106 [facility] Comment on above: Order Comment: 109.1 Result Comment: Fast ing Glucose result from 100 to 125 mg/dLsuggests IMPAIRED HOMEOSTASIS per A.D.A. criteria. Performed By: #### L 100.0100, L500.2500 ####[facility] [address] [place], [address] Potassium [Moles/Vol] 4.1 mmol/L Normal 3.5-5.1 [facility] Comment on above: Order Comment: 109.1 Performed By: #### L 100.0100, L500.2500 ####[facility] [address] [place], [address] Sodium [Moles/Vol] 139 mmol/L Normal 136-145 [facility] Comment on above: Order Comment: 109.1 Performed By: #### L 100.0100, L500.2500 ####[facility] [address] [place], [address] Urea nitrogen [Mass/Vol] 15 mg/dL Normal 7-18 [facility] Comment on above: Order Comment: 109.1 Performed By: #### L 100.0100, L500.2500 ####[facility] [address] [place], [address] Basophil percentageOrdered B y: Renard Burgos on 06-24-2024 Basophils/100 WBC (Bld) 0.5 % 0-1 [facility] Blood urea nitrogen (BUN)/cr eatinine ratioOrdered By: Renard Burgos on 06-24-2024 Urea nitrogen/Creatinine [Mass ratio] 24.9 mg/mg High 10-20 [facility] CBC W/Diff, Automatedon -2 Absolute Lymph 1.65 X10 3/uL Normal 0.83-4.51 [facility] Comment on above: Order Comment: 109.1 Performed By: #### L 100.0100, L500.2500 ####[facility] [address] [place], [address] Absolute Neut 10.2 X10 3/uL High 2.0-7.7 [facility] Comment on above: Order Comment: 109.1 Performed By: #### L 100.0100, L500.2500 ####[facility] [address] [place], [address] Basophils/100 WBC (Bld) 0.5 % Normal 0-1 [facility] Comment on above: Order Comment: 109.1 Performed By: #### L 100.0100, L500.2500 ####[facility] [address] [place], [address] Eosinophils/100 WBC (Bld) 0.8 % Normal 0-5 [facility] Comment on above: Order Comment: 109.1 Performed By: #### L 100.0100, L500.2500 ####[facility] [address] [place], [address] Erythrocyte distribution width (RBC) [Ratio] 13.2 % Normal 11.6-14.6 [facility] Comment on above: Order Comment: 109.1 Performed By: #### L 100.0100, L500.2500 ####[facility] [address] [place], [address] Hematocrit (Bld) [Volume fraction] 41.8 % Normal 40-54 [facility] Comment on above: Order Comment: 109.1 Performed By: #### L 100.0100, L500.2500 ####[facility] [address] [place], [address] Hemoglobin (Bld) [Mass/Vol] 13.6 g/dL Normal 13.0-16.5 [facility] Comment on above: Order Comment: 109.1 Performed By: #### L 100.0100, L500.2500 ####[facility] [address] [place], [address] IG% 0.500 Normal 0.0-0.9 [facility] Comment on above: Order Comment: 109.1 Result Comment: IG% - Immature Granulocytes (promyelocytes, myelocytes andmetamyelocytes) > 1% indicates that a LEFT SHIFT is Present. Performed By: #### L 100.0100, L500.2500 ####[facility] [address] [place], [address] Lymphocytes/100 WBC (Bld) 12.8 % Low 19-41 [facility] Comment on above: Order Comment: 109.1 Performed By: #### L 100.0100, L500.2500 ####[facility] [address] [place], [address] MCH (RBC) [Entitic mass] 30.2 pg Normal 27.0-32.0 [facility] Comment on above: Order Comment: 109.1 Performed By: #### L 100.0100, L500.2500 ####[facility] [address] [place], [address] MCHC (RBC) [Mass/Vol] 32.5 g/dL Normal 32-36 [facility] Comment on above: Order Comment: 109.1 Performed By: #### L 100.0100, L500.2500 ####[facility] [address] [place], [address] MCV (RBC) [Entitic vol] 92.7 fL Normal 80-94 [facility] Comment on above: Order Comment: 109.1 Performed By: #### L 100.0100, L500.2500 ####[facility] [address] [place], [address] Monocytes/100 WBC (Bld) 6.4 % Normal 0-10 [facility] Comment on above: Order Comment: 109.1 Performed By: #### L 100.0100, L500.2500 ####[facility] [address] [place], [address] Neutrophils/100 WBC (Bld) 79.0 % High 47-70 [facility] Comment on above: Order Comment: 109.1 Performed By: #### L 100.0100, L500.2500 ####[facility] [address] [place], [address] Nucleated RBC (Bld) [#/Vol] 0 10*3/uL Normal 0-5 [facility] Comment on above: Order Comment: 109.1 Performed By: #### L 100.0100, L500.2500 ####[facility] [address] [place], [address] Platelet mean volume (Bld) [Entitic vol] 11.3 fL Normal 6.2-12.0 [facility] Comment on above: Order Comment: 109.1 Performed By: #### L 100.0100, L500.2500 ####[facility] [address] [place], [address] Platelets (Bld) [#/Vol] 171 10*3/uL Normal 150-450 [facility] Comment on above: Order Comment: 109.1 Performed By: #### L 100.0100, L500.2500 ####[facility] [address] [place], [address] RBC (Bld) [#/Vol] 4.51 10*6/uL Low 4.6-6.2 [facility] Comment on above: Order Comment: 109.1 Performed By: #### L 100.0100, L500.2500 ####[facility] [address] [place], [address] RDW SD 45.1 fl High 35.1-43.9 [facility] Comment on above: Order Comment: 109.1 Performed By: #### L 100.0100, L500.2500 ####[facility] [address] [place], [address] WBC (Bld) [#/Vol] 12.9 10*3/uL High 4.4-11.0 [facility] Comment on above: Order Comment: 109.1 Performed By: #### L 100.0100, L500.2500 ####[facility] [address] [place], [address] CT Chest WO contraston 06-24 Radiology Study observation (narrative) Estefania smith Carbon dioxide measurementOr dered By: Renard Burgos on 06-24-2024 CO2 [Moles/Vol] 24.0 mmol/L 21.0-32.0 [facility] Chloride measurementOrdered By: Renard Burgos on 06-24-2024 Chloride [Moles/Vol] 107 mmol/L 98-107 [facility] Eosinophil percentageOrdered By: Renard Burgos on 06-24-2024 Eosinophils/100 WBC (Bld) 0.8 % 0-5 [facility] Erythrocyte distribution wid th ratioOrdered By: Renard Burgos on 06-24-2024 Erythrocyte distribution width (RBC) [Ratio] 13.2 % 11.6-14.6 [facility] Erythrocyte distribution wid th standard deviationOrdered By: Renard Burgos on 06-24-2024 Erythrocyte distribution width (RBC) [Entitic vol] 45.1 fL High 35.1-43.9 [facility] Erythrocyte distribution width (RBC) [Ratio] 45.1 fl High 35.1-43.9 [facility] Estimated glomerular filtrat ion rate (GFR) AmericanOrdered By: Renard Burgos on 06-24-2024 Estimated GFR (MDRD) Amer 172 mL/min >60 [facility] Comment on above: GFR Calc Glomerular filtration rate ( GFR) estimationOrdered By: Renard Burgos on 06-24-2024 Estimated GFR (MDRD) Non-Af Amer 142 mL/min >60 [facility] Comment on above: Non- GFR Calc GFR/1.73 sq M.predicted among non-blacks MDRD (S/P/Bld) [Vol rate/Area] 142 mL/min/{1.73_m2} >60 [facility] Comment on above: Non- GFR Calc Glucose measurementOrdered B y: Renard Burgos on 06-24-2024 Glucose [Mass/Vol] 101 mg/dL 74-106 [facility] Comment on above: Fasting Glucose resu lt from 100 to 125 mg/dL suggests IMPAIRED HOMEOSTASIS per A.D.A. criteria. Hematocrit Auto (Bld) [Volum e fraction]Ordered By: Renard Burgos on 06-24-2024 Hematocrit (Bld) [Volume fraction] 41.8 % 40-54 [facility] Hemoglobin measurementOrdere d By: Renard Burgos on 06-24-2024 Hemoglobin (Bld) [Mass/Vol] 13.6 g/dL 13.0-16.5 [facility] Immature granulocytes/100 WB C Auto (Bld)Ordered By: Renard Burgos on 06-24-2024 Immature granulocytes/100 WBC (Bld) 0.500 % 0.0-0.9 [facility] Comment on above: IG% - Immature Granu locytes (promyelocytes, myelocytes and metamyelocytes) > 1% indicates that a LEFT SHIFT is Present. Lymphocytes Auto (Unsp spec) [#/Vol]Ordered By: Renard Burgos on 06-24-2024 Lymphocytes (Bld) [#/Vol] 1.65 10*3/uL 0.83-4.51 [facility] Lymphocytes/100 WBC Auto (Un sp spec)Ordered By: Renard Burgos on 06-24-2024 Lymphocytes/100 WBC (Bld) 12.8 % Low 19-41 [facility] MCV (mean corpuscular volume ) determinationOrdered By: Renard Burgos on 06-24-2024 MCV (RBC) [Entitic vol] 92.7 fL 80-94 [facility] Mean corpuscular hemoglobin (MCH) determinationOrdered By: Renard Burgos on 06-24-2024 MCH (RBC) [Entitic mass] 30.2 pg 27.0-32.0 [facility] Mean corpuscular hemoglobin concentration (MCHC) determinationOrdered By: Renard Burgos on 06-24-2024 MCHC (RBC) [Mass/Vol] 32.5 g/dL 32-36 [facility] Mean platelet volume determi nationOrdered By: Renard Burgos on 06-24-2024 Platelet mean volume (Bld) [Entitic vol] 11.3 fL 6.2-12.0 [facility] Monocyte percentageOrdered B y: Renard Burgos on 06-24-2024 Monocytes/100 WBC (Bld) 6.4 % 0-10 [facility] Neutrophil percentageOrdered By: Renard Burgos on 06-24-2024 Neutrophils/100 WBC (Bld) 79.0 % High 47-70 [facility] Nucleated red blood cell per centageOrdered By: Renard Burgos on 06-24-2024 Nucleated RBC/100 WBC (Bld) [Ratio] 0 % 0-5 [facility] Platelet countOrdered By: Garrick Bhatt on 06-24-2024 Platelets (Bld) [#/Vol] 171 10*3/uL 150-450 [facility] Potassium measurementOrdered By: Renard Burgos on 06-24-2024 Potassium [Moles/Vol] 4.1 mmol/L 3.5-5.1 [facility] RBC Auto (Bld) [#/Vol]Ordere d By: Renard Burgos on 06-24-2024 RBC (Bld) [#/Vol] 4.51 10*6/uL Low 4.6-6.2 [facility] Serum anion gap measurementO rdered By: Renard Burgos on 06-24-2024 Anion gap [Moles/Vol] 8 mmol/L 5-15 [facility] Serum or plasma calcium gordy urement (mass/volume)Ordered By: Renard Burgos on 06-24-2024 Calcium [Mass/Vol] 8.3 mg/dL Low 8.5-10.1 [facility] Serum or plasma creatinine m easurement (mass/volume)Ordered By: Renard Burgos on 06-24-2024 Creatinine [Mass/Vol] 0.60 mg/dL Low 0.70-1.30 [facility] Comment on above: The validity of the calculated GFR & GFRAA in patients over 70 years has not been determined. Clinical correlation is essential. Serum or plasma urea nitroge n measurement (mass/volume)Ordered By: Renard Burgos on 06-24-2024 Urea nitrogen [Mass/Vol] 15 mg/dL 7-18 [facility] Sodium levelOrdered By: Lamine Burgos on 06-24-2024 Sodium [Moles/Vol] 139 mmol/L 136-145 [facility] White blood cell (WBC) count Ordered By: Renard Burgos on 06-24-2024 WBC (Bld) [#/Vol] 12.9 10*3/uL High 4.4-11.0 [facility] Absolute lymphocyte countOrd ered By: Renard Burgos on 06-17-2024 Lymphocytes Auto (Unsp spec) [#/Vol] 2.00 10*3/uL 0.83-4.51 [facility] Absolute neutrophil countOrd ered By: Renard Burgos on 06-17-2024 Neutrophils (Bld) [#/Vol] 5.1 10*3/uL 2.0-7.7 [facility] Automated lymphocyte count a s percentage of total leukocytesOrdered By: Renard Burgos on 06-17-2024 Lymphocytes/100 WBC Auto (Unsp spec) 24.5 % 19-41 [facility] Basophil percentageOrdered B y: Renard Burgos on 06-17-2024 Basophils/100 WBC (Bld) 1.1 % High 0-1 [facility] CBC W/Diff, Automatedon 06-01 Absolute Lymph 2.00 X10 3/uL Normal 0.83-4.51 [facility] Comment on above: Order Comment: 109-1 Performed By: #### L 100.0100 ####[facility] [address] [place], [address] Absolute Neut 5.1 X10 3/uL Normal 2.0-7.7 [facility] Comment on above: Order Comment: 109-1 Performed By: #### L 100.0100 ####[facility] [address] [place], [address] Basophils/100 WBC (Bld) 1.1 % High 0-1 [facility] Comment on above: Order Comment: 109-1 Performed By: #### L 100.0100 ####[facility] [address] [place], [address] Eosinophils/100 WBC (Bld) 3.4 % Normal 0-5 [facility] Comment on above: Order Comment: 109-1 Performed By: #### L 100.0100 ####[facility] [address] [place], [address] Erythrocyte distribution width (RBC) [Ratio] 13.3 % Normal 11.6-14.6 [facility] Comment on above: Order Comment: 109-1 Performed By: #### L 100.0100 ####[facility] [address] [place], [address] Hematocrit (Bld) [Volume fraction] 39.3 % Low 40-54 [facility] Comment on above: Order Comment: 109-1 Performed By: #### L 100.0100 ####[facility] [address] [place], [address] Hemoglobin (Bld) [Mass/Vol] 12.8 g/dL Low 13.0-16.5 [facility] Comment on above: Order Comment: 109-1 Performed By: #### L 100.0100 ####[facility] [address] [place], [address] IG% 0.200 Normal 0.0-0.9 [facility] Comment on above: Order Comment: 109-1 Result Comment: IG% - Immature Granulocytes (promyelocytes, myelocytes andmetamyelocytes) > 1% indicates that a LEFT SHIFT is Present. Performed By: #### L 100.0100 ####[facility] [address] [place], [address] Lymphocytes/100 WBC (Bld) 24.5 % Normal 19-41 [facility] Comment on above: Order Comment: 109-1 Performed By: #### L 100.0100 ####[facility] [address] [place], [address] MCH (RBC) [Entitic mass] 29.6 pg Normal 27.0-32.0 [facility] Comment on above: Order Comment: 109-1 Performed By: #### L 100.0100 ####[facility] [address] [place], [address] MCHC (RBC) [Mass/Vol] 32.6 g/dL Normal 32-36 [facility] Comment on above: Order Comment: 109-1 Performed By: #### L 100.0100 ####[facility] [address] [place], [address] MCV (RBC) [Entitic vol] 90.8 fL Normal 80-94 [facility] Comment on above: Order Comment: 109-1 Performed By: #### L 100.0100 ####[facility] [address] [place], [address] Monocytes/100 WBC (Bld) 8.8 % Normal 0-10 [facility] Comment on above: Order Comment: 109-1 Performed By: #### L 100.0100 ####[facility] [address] [place], [address] Neutrophils/100 WBC (Bld) 62.0 % Normal 47-70 [facility] Comment on above: Order Comment: 109-1 Performed By: #### L 100.0100 ####[facility] [address] [place], [address] Nucleated RBC (Bld) [#/Vol] 0 10*3/uL Normal 0-5 [facility] Comment on above: Order Comment: 109-1 Performed By: #### L 100.0100 ####[facility] [address] [place], [address] Platelet mean volume (Bld) [Entitic vol] 10.9 fL Normal 6.2-12.0 [facility] Comment on above: Order Comment: 109-1 Performed By: #### L 100.0100 ####[facility] [address] [place], [address] Platelets (Bld) [#/Vol] 218 10*3/uL Normal 150-450 [facility] Comment on above: Order Comment: 109-1 Performed By: #### L 100.0100 ####[facility] [address] [place], [address] RBC (Bld) [#/Vol] 4.33 10*6/uL Low 4.6-6.2 [facility] Comment on above: Order Comment: 109-1 Performed By: #### L 100.0100 ####[facility] [address] [place], [address] RDW SD 44.0 fl High 35.1-43.9 [facility] Comment on above: Order Comment: 109-1 Performed By: #### L 100.0100 ####[facility] [address] [place], [address] WBC (Bld) [#/Vol] 8.2 10*3/uL Normal 4.4-11.0 [facility] Comment on above: Order Comment: 109-1 Performed By: #### L 100.0100 ####[facility] [address] [place], [address] Eosinophil percentageOrdered By: Renard Burgos on 06-17-2024 Eosinophils/100 WBC (Bld) 3.4 % 0-5 [facility] Erythrocyte distribution wid th ratioOrdered By: Renard Burgos on 06-17-2024 Erythrocyte distribution width (RBC) [Ratio] 13.3 % 11.6-14.6 [facility] Erythrocyte distribution wid th standard deviationOrdered By: Renard Burgos on 06-17-2024 Erythrocyte distribution width (RBC) [Entitic vol] 44.0 fL High 35.1-43.9 [facility] Erythrocyte distribution width (RBC) [Ratio] 44.0 fl High 35.1-43.9 [facility] Hematocrit Auto (Bld) [Volum e fraction]Ordered By: Renard Burgos on 06-17-2024 Hematocrit (Bld) [Volume fraction] 39.3 % Low 40-54 [facility] Hemoglobin measurementOrdere d By: Renard Burgos on 06-17-2024 Hemoglobin (Bld) [Mass/Vol] 12.8 g/dL Low 13.0-16.5 [facility] Immature granulocytes/100 WB C Auto (Bld)Ordered By: Renard Burgos on 06-17-2024 Immature granulocytes/100 WBC (Bld) 0.200 % 0.0-0.9 [facility] Comment on above: IG% - Immature Granu locytes (promyelocytes, myelocytes and metamyelocytes) > 1% indicates that a LEFT SHIFT is Present. Lymphocytes Auto (Unsp spec) [#/Vol]Ordered By: Renard Burgos on 06-17-2024 Lymphocytes (Bld) [#/Vol] 2.00 10*3/uL 0.83-4.51 [facility] Lymphocytes/100 WBC Auto (Un sp spec)Ordered By: Renard Burgos on 06-17-2024 Lymphocytes/100 WBC (Bld) 24.5 % 19-41 [facility] MCV (mean corpuscular volume ) determinationOrdered By: Renard Burgos on 06-17-2024 MCV (RBC) [Entitic vol] 90.8 fL 80-94 [facility] Mean corpuscular hemoglobin (MCH) determinationOrdered By: Renard Burgos on 06-17-2024 MCH (RBC) [Entitic mass] 29.6 pg 27.0-32.0 [facility] Mean corpuscular hemoglobin concentration (MCHC) determinationOrdered By: Renard Burgos on 06-17-2024 MCHC (RBC) [Mass/Vol] 32.6 g/dL 32-36 [facility] Mean platelet volume determi nationOrdered By: Renard Burgos on 06-17-2024 Platelet mean volume (Bld) [Entitic vol] 10.9 fL 6.2-12.0 [facility] Monocyte percentageOrdered B y: Renard Burgos on 06-17-2024 Monocytes/100 WBC (Bld) 8.8 % 0-10 [facility] Neutrophil percentageOrdered By: Renard Burgos on 06-17-2024 Neutrophils/100 WBC (Bld) 62.0 % 47-70 [facility] Nucleated red blood cell per centageOrdered By: Renard Burgos on 06-17-2024 Nucleated RBC/100 WBC (Bld) [Ratio] 0 % 0-5 [facility] Platelet countOrdered By: Garrick Bhatt on 06-17-2024 Platelets (Bld) [#/Vol] 218 10*3/uL 150-450 [facility] RBC Auto (Bld) [#/Vol]Ordere d By: Renard Burgos on 06-17-2024 RBC (Bld) [#/Vol] 4.33 10*6/uL Low 4.6-6.2 [facility] White blood cell (WBC) count Ordered By: Renard Burgos on 06-17-2024 WBC (Bld) [#/Vol] 8.2 10*3/uL 4.4-11.0 [facility] Absolute lymphocyte countOrd ered By: Renard Burgos on 06-10-2024 Lymphocytes Auto (Unsp spec) [#/Vol] 2.38 10*3/uL 0.83-4.51 [facility] Absolute neutrophil countOrd ered By: Renard Burgos on 06-10-2024 Neutrophils (Bld) [#/Vol] 5.3 10*3/uL 2.0-7.7 [facility] Automated lymphocyte count a s percentage of total leukocytesOrdered By: Renard Burgos on 06-10-2024 Lymphocytes/100 WBC Auto (Unsp spec) 27.5 % 19-41 [facility] Basophil percentageOrdered B y: Renard Burgos on 06-10-2024 Basophils/100 WBC (Bld) 0.7 % 0-1 [facility] CBC W/Diff, Automatedon 06-01 Absolute Lymph 2.38 X10 3/uL Normal 0.83-4.51 [facility] Comment on above: Order Comment: 109.1 Performed By: #### L 100.0100 ####[facility] [address] [place], [address] Absolute Neut 5.3 X10 3/uL Normal 2.0-7.7 [facility] Comment on above: Order Comment: 109.1 Performed By: #### L 100.0100 ####[facility] [address] [place], [address] Basophils/100 WBC (Bld) 0.7 % Normal 0-1 [facility] Comment on above: Order Comment: 109.1 Performed By: #### L 100.0100 ####[facility] [address] [place], [address] Eosinophils/100 WBC (Bld) 0.7 % Normal 0-5 [facility] Comment on above: Order Comment: 109.1 Performed By: #### L 100.0100 ####[facility] [address] [place], [address] Erythrocyte distribution width (RBC) [Ratio] 13.1 % Normal 11.6-14.6 [facility] Comment on above: Order Comment: 109.1 Performed By: #### L 100.0100 ####[facility] [address] [place], [address] Hematocrit (Bld) [Volume fraction] 41.1 % Normal 40-54 [facility] Comment on above: Order Comment: 109.1 Performed By: #### L 100.0100 ####[facility] [address] [place], [address] Hemoglobin (Bld) [Mass/Vol] 13.5 g/dL Normal 13.0-16.5 [facility] Comment on above: Order Comment: 109.1 Performed By: #### L 100.0100 ####[facility] [address] [place], [address] IG% 0.500 Normal 0.0-0.9 [facility] Comment on above: Order Comment: 109.1 Result Comment: IG% - Immature Granulocytes (promyelocytes, myelocytes andmetamyelocytes) > 1% indicates that a LEFT SHIFT is Present. Performed By: #### L 100.0100 ####[facility] [address] [place], [address] Lymphocytes/100 WBC (Bld) 27.5 % Normal 19-41 [facility] Comment on above: Order Comment: 109.1 Performed By: #### L 100.0100 ####[facility] [address] [place], [address] MCH (RBC) [Entitic mass] 30.1 pg Normal 27.0-32.0 [facility] Comment on above: Order Comment: 109.1 Performed By: #### L 100.0100 ####[facility] [address] [place], [address] MCHC (RBC) [Mass/Vol] 32.8 g/dL Normal 32-36 [facility] Comment on above: Order Comment: 109.1 Performed By: #### L 100.0100 ####[facility] [address] [place], [address] MCV (RBC) [Entitic vol] 91.7 fL Normal 80-94 [facility] Comment on above: Order Comment: 109.1 Performed By: #### L 100.0100 ####[facility] [address] [place], [address] Monocytes/100 WBC (Bld) 9.6 % Normal 0-10 [facility] Comment on above: Order Comment: 109.1 Performed By: #### L 100.0100 ####[facility] [address] [place], [address] Neutrophils/100 WBC (Bld) 61.0 % Normal 47-70 [facility] Comment on above: Order Comment: 109.1 Performed By: #### L 100.0100 ####[facility] [address] [place], [address] Nucleated RBC (Bld) [#/Vol] 0 10*3/uL Normal 0-5 [facility] Comment on above: Order Comment: 109.1 Performed By: #### L 100.0100 ####[facility] [address] [place], [address] Platelet mean volume (Bld) [Entitic vol] 11.0 fL Normal 6.2-12.0 [facility] Comment on above: Order Comment: 109.1 Performed By: #### L 100.0100 ####[facility] [address] [place], [address] Platelets (Bld) [#/Vol] 261 10*3/uL Normal 150-450 [facility] Comment on above: Order Comment: 109.1 Performed By: #### L 100.0100 ####[facility] [address] [place], [address] RBC (Bld) [#/Vol] 4.48 10*6/uL Low 4.6-6.2 [facility] Comment on above: Order Comment: 109.1 Performed By: #### L 100.0100 ####[facility] [address] [place], [address] RDW SD 43.2 fl Normal 35.1-43.9 [facility] Comment on above: Order Comment: 109.1 Performed By: #### L 100.0100 ####[facility] [address] [place], [address] WBC (Bld) [#/Vol] 8.6 10*3/uL Normal 4.4-11.0 [facility] Comment on above: Order Comment: 109.1 Performed By: #### L 100.0100 ####[facility] [address] [place], [address] Eosinophil percentageOrdered By: Renard Burgos on 06-10-2024 Eosinophils/100 WBC (Bld) 0.7 % 0-5 [facility] Erythrocyte distribution wid th ratioOrdered By: Renard Burgos on 06-10-2024 Erythrocyte distribution width (RBC) [Ratio] 13.1 % 11.6-14.6 [facility] Erythrocyte distribution wid th standard deviationOrdered By: Renard Burgos on 06-10-2024 Erythrocyte distribution width (RBC) [Entitic vol] 43.2 fL 35.1-43.9 [facility] Erythrocyte distribution width (RBC) [Ratio] 43.2 fl 35.1-43.9 [facility] Hematocrit Auto (Bld) [Volum e fraction]Ordered By: Renard Burgos on 06-10-2024 Hematocrit (Bld) [Volume fraction] 41.1 % 40-54 [facility] Hemoglobin measurementOrdere d By: Renard Burgos on 06-10-2024 Hemoglobin (Bld) [Mass/Vol] 13.5 g/dL 13.0-16.5 [facility] Immature granulocytes/100 WB C Auto (Bld)Ordered By: Renard Burgos on 06-10-2024 Immature granulocytes/100 WBC (Bld) 0.500 % 0.0-0.9 [facility] Comment on above: IG% - Immature Granu locytes (promyelocytes, myelocytes and metamyelocytes) > 1% indicates that a LEFT SHIFT is Present. Lymphocytes Auto (Unsp spec) [#/Vol]Ordered By: Renard Burgos on 06-10-2024 Lymphocytes (Bld) [#/Vol] 2.38 10*3/uL 0.83-4.51 [facility] Lymphocytes/100 WBC Auto (Un sp spec)Ordered By: Renard Burgos on 06-10-2024 Lymphocytes/100 WBC (Bld) 27.5 % 19-41 [facility] MCV (mean corpuscular volume ) determinationOrdered By: Renard Burgos on 06-10-2024 MCV (RBC) [Entitic vol] 91.7 fL 80-94 [facility] Mean corpuscular hemoglobin (MCH) determinationOrdered By: Renard Burgos on 06-10-2024 MCH (RBC) [Entitic mass] 30.1 pg 27.0-32.0 [facility] Mean corpuscular hemoglobin concentration (MCHC) determinationOrdered By: Renard Burgos on 06-10-2024 MCHC (RBC) [Mass/Vol] 32.8 g/dL 32-36 [facility] Mean platelet volume determi nationOrdered By: Renard Burgos on 06-10-2024 Platelet mean volume (Bld) [Entitic vol] 11.0 fL 6.2-12.0 [facility] Monocyte percentageOrdered B y: Renard Burgos on 06-10-2024 Monocytes/100 WBC (Bld) 9.6 % 0-10 [facility] Neutrophil percentageOrdered By: Renard Burgos on 06-10-2024 Neutrophils/100 WBC (Bld) 61.0 % 47-70 [facility] Nucleated red blood cell per centageOrdered By: Renard Burgos on 06-10-2024 Nucleated RBC/100 WBC (Bld) [Ratio] 0 % 0-5 [facility] Platelet countOrdered By: Garrick Bhatt on 06-10-2024 Platelets (Bld) [#/Vol] 261 10*3/uL 150-450 [facility] RBC Auto (Bld) [#/Vol]Ordere d By: Renard Burgos on 06-10-2024 RBC (Bld) [#/Vol] 4.48 10*6/uL Low 4.6-6.2 [facility] Urine Cultureon 06-10-2024 URC Normal [facility] Comment on above: Performed By: #### M 100.2200, L400.0001 ####[facility] [address] [facility] [place], [place], [address] White blood cell (WBC) count Ordered By: Renard Burgos on 06-10-2024 WBC (Bld) [#/Vol] 8.6 10*3/uL 4.4-11.0 [facility] Bilirubin Test strip Ql (U)O rdered By: Renard Burgos on 06-07-2024 Bilirubin Ql (U) Negative Negative [facility] CBC-Complete Blood Cnt No Di ffon 06-07-2024 Erythrocyte distribution width (RBC) [Ratio] 13.0 % Normal 11.6-14.6 [facility] Comment on above: Order Comment: 109-1 Performed By: #### L 100.0500 ####[facility] [address] [place], [address] Hematocrit (Bld) [Volume fraction] 39.3 % Low 40-54 [facility] Comment on above: Order Comment: 109-1 Performed By: #### L 100.0500 ####[facility] [address] [place], [address] Hemoglobin (Bld) [Mass/Vol] 13.0 g/dL Normal 13.0-16.5 [facility] Comment on above: Order Comment: 109-1 Performed By: #### L 100.0500 ####[facility] [address] [place], [address] MCH (RBC) [Entitic mass] 30.2 pg Normal 27.0-32.0 [facility] Comment on above: Order Comment: 109-1 Performed By: #### L 100.0500 ####[facility] [address] [place], [address] MCHC (RBC) [Mass/Vol] 33.1 g/dL Normal 32-36 [facility] Comment on above: Order Comment: 109-1 Performed By: #### L 100.0500 ####[facility] [address] [place], [address] MCV (RBC) [Entitic vol] 91.2 fL Normal 80-94 [facility] Comment on above: Order Comment: 109-1 Performed By: #### L 100.0500 ####[facility] [address] [place], [address] Platelet mean volume (Bld) [Entitic vol] 10.8 fL Normal 6.2-12.0 [facility] Comment on above: Order Comment: 109-1 Performed By: #### L 100.0500 ####[facility] [address] [place], [address] Platelets (Bld) [#/Vol] 251 10*3/uL Normal 150-450 [facility] Comment on above: Order Comment: 109-1 Performed By: #### L 100.0500 ####[facility] [address] [place], [address] RBC (Bld) [#/Vol] 4.31 10*6/uL Low 4.6-6.2 [facility] Comment on above: Order Comment: 109-1 Performed By: #### L 100.0500 ####[facility] [address] [place], [address] RDW SD 43.7 fl Normal 35.1-43.9 [facility] Comment on above: Order Comment: 109-1 Performed By: #### L 100.0500 ####[facility] [address] [place], [address] WBC (Bld) [#/Vol] 9.9 10*3/uL Normal 4.4-11.0 [facility] Comment on above: Order Comment: 109-1 Performed By: #### L 100.0500 ####[facility] [address] [place], [address] Epithelial cells.squamous LM Ql (Urine sed)Ordered By: Renard Burgos on 06-07-2024 Epithelial cells.squamous LM.HPF (Urine sed) [#/Area] 0 /[HPF] 0-5 [facility] Erythrocyte distribution wid th ratioOrdered By: Renard Burgos on 06-07-2024 Erythrocyte distribution width (RBC) [Ratio] 13.0 % 11.6-14.6 [facility] Erythrocyte distribution wid th standard deviationOrdered By: Renard Burgos on 06-07-2024 Erythrocyte distribution width (RBC) [Entitic vol] 43.7 fL 35.1-43.9 [facility] Erythrocyte distribution width (RBC) [Ratio] 43.7 fl 35.1-43.9 [facility] Glucose Ql (U)Ordered By: Garrick Bhatt on 06-07-2024 Urine Glucose (UA) Normal mg/dl Normal [facility] Hematocrit Auto (Bld) [Volum e fraction]Ordered By: Renard Burgos on 06-07-2024 Hematocrit (Bld) [Volume fraction] 39.3 % Low 40-54 [facility] Hemoglobin measurementOrdere d By: eRnard Burgos on 06-07-2024 Hemoglobin (Bld) [Mass/Vol] 13.0 g/dL 13.0-16.5 [facility] Ketones Test strip Ql (U)Ord ered By: Renard Burgos on 06-07-2024 Ketones Ql (U) Negative Negative [facility] MCV (mean corpuscular volume ) determinationOrdered By: Renard Burgos on 06-07-2024 MCV (RBC) [Entitic vol] 91.2 fL 80-94 [facility] Mean corpuscular hemoglobin (MCH) determinationOrdered By: Renard Burgos on 06-07-2024 MCH (RBC) [Entitic mass] 30.2 pg 27.0-32.0 [facility] Mean corpuscular hemoglobin concentration (MCHC) determinationOrdered By: Renard Burgos on 06-07-2024 MCHC (RBC) [Mass/Vol] 33.1 g/dL 32-36 [facility] Mean platelet volume determi nationOrdered By: Renard Burgos on 06-07-2024 Platelet mean volume (Bld) [Entitic vol] 10.8 fL 6.2-12.0 [facility] Microscopic analysis of urin e for red blood cells (RBC)Ordered By: Renard Burgos on 06-07-2024 Microscopic analysis of urine for red blood cells (RBC) 0 SEEN /hpf 0-5 [facility] Urine RBC 0 SEEN /hpf 0-5 [facility] Mucus LM Ql (Urine sed)Order ed By: Renard Burgos on 06-07-2024 Mucus Ql (Urine sed) 0 SEEN /hpf [facility] Nitrite Test strip Ql (U)Ord ered By: Renard Burgos on 06-07-2024 Nitrite Ql (U) Negative Negative [facility] Platelet countOrdered By: Garrick Bhatt on 06-07-2024 Platelets (Bld) [#/Vol] 251 10*3/uL 150-450 [facility] Protein Test strip Ql (U)Ord ered By: Renard Burgos on 06-07-2024 Protein Ql (U) 15 mg/dl High Negative [facility] RBC Auto (Bld) [#/Vol]Ordere d By: Renard Burgos on 06-07-2024 RBC (Bld) [#/Vol] 4.31 10*6/uL Low 4.6-6.2 [facility] Squamous epithelial cells de tection in urine sediment by light microscopyOrdered By: Renard Burgos on 06-07-2024 Epithelial cells.squamous LM Ql (Urine sed) 0-5 SEEN /hpf 0-5 [facility] Urinalysis, Completeon 06-07 Mucus Ql (Urine sed) 0 SEEN Normal [facility] Comment on above: Order Comment: CLEAN CATCH Performed By: #### M 100.2200, L400.0001 ####[facility] [address] [place], [address] Urine blood detectionOrdered By: Renard Burgos on 06-07-2024 Urine Occult Blood Negative Negative [facility] Urine clarityOrdered By: Lyubov Burgos on 06-07-2024 Clarity (U) Clear Clear [facility] Urine color determinationOrd ered By: Renard Burgos on 06-07-2024 Color (U) Yellow Yellow [facility] Urine cultureOrdered By: Lyubov Burgos on 06-07-2024 Bacteria identified Cx Nom (U) Pseudomonas aeruginosa Abnormal [facility] Bacteria identified Cx Nom (U) Pseudomonas aeruginosa Abnormal [facility] Urine glucose detectionOrder ed By: Renard Burgos on 06-07-2024 Glucose Ql (U) Normal mg/dl Normal [facility] Urine leukocyte esterase det ection by dipstickOrdered By: Renard Burgos on 06-07-2024 Leukocyte esterase Test strip Ql (U) Negative Negative [facility] Urine pHOrdered By: Renard ocampo on 06-07-2024 pH (U) 7.0 [pH] 5.0 - 8.0 [facility] Urine sediment bacteria coun t by microscopy (number/high power field)Ordered By: Renard Burgos on 06-07-2024 Bacteria LM.HPF (Urine sed) [#/Area] 2 /[HPF] None Seen [facility] Urine sediment yeast count b y microscopy (number/high powered field)Ordered By: Renard Burgos on 06-07-2024 Yeast LM.HPF (Urine sed) [#/Area] 1 /[HPF] None Seen [facility] Urine specific gravity measu rementOrdered By: Renard Burgos on 06-07-2024 Specific gravity (U) [Rel density] 1.010 1.002-1.030 [facility] Urine urobilinogen measureme ntOrdered By: Renard Burgos on 06-07-2024 Urobilinogen Ql (U) 1 mg/dl High Normal [facility] Urobilinogen Ql (U)Ordered B y: Renard Burgos on 06-07-2024 Urobilinogen (U) [Mass/Vol] 1 mg/dL High Normal [facility] White blood cell (WBC) count Ordered By: Renard Burgos on 06-07-2024 WBC (Bld) [#/Vol] 9.9 10*3/uL 4.4-11.0 [facility] White blood cell countOrdere d By: Renard Burgos on 06-07-2024 Urine WBC 0-5 SEEN /hpf 0-5 [facility] White blood cell count 0-5 SEEN /hpf 0-5 [facility] Yeast LM.HPF (Urine sed) [#/ Area]Ordered By: Renard Burgos on 06-07-2024 Urine Yeast 1+ /hpf None Seen [facility] Absolute lymphocyte countOrd ered By: Renard Burgos on 06-03-2024 Lymphocytes Auto (Unsp spec) [#/Vol] 1.94 10*3/uL 0.83-4.51 [facility] Absolute neutrophil countOrd ered By: Renard Burgos on 06-03-2024 Neutrophils (Bld) [#/Vol] 9.5 10*3/uL High 2.0-7.7 [facility] Automated lymphocyte count a s percentage of total leukocytesOrdered By: Renard Hensleyrustam on 06-03-2024 Lymphocytes/100 WBC Auto (Unsp spec) 15.7 % Low 19-41 [facility] Basophil percentageOrdered B y: Renard Burgos on 06-03-2024 Basophils/100 WBC (Bld) 0.5 % 0-1 [facility] CBC W/Diff, Automatedon Absolute Lymph 1.94 X10 3/uL Normal 0.83-4.51 [facility] Comment on above: Order Comment: 109-1 Performed By: #### L 100.0100 ####[facility] [address] [place], [address] Absolute Neut 9.5 X10 3/uL High 2.0-7.7 [facility] Comment on above: Order Comment: 109-1 Performed By: #### L 100.0100 ####[facility] [address] [place], [address] Basophils/100 WBC (Bld) 0.5 % Normal 0-1 [facility] Comment on above: Order Comment: 109-1 Performed By: #### L 100.0100 ####[facility] [address] [place], [address] Eosinophils/100 WBC (Bld) 0.3 % Normal 0-5 [facility] Comment on above: Order Comment: 109-1 Performed By: #### L 100.0100 ####[facility] [address] [place], [address] Erythrocyte distribution width (RBC) [Ratio] 13.0 % Normal 11.6-14.6 [facility] Comment on above: Order Comment: 109-1 Performed By: #### L 100.0100 ####[facility] [address] [place], [address] Hematocrit (Bld) [Volume fraction] 40.1 % Normal 40-54 [facility] Comment on above: Order Comment: 109-1 Performed By: #### L 100.0100 ####[facility] [address] [place], [address] Hemoglobin (Bld) [Mass/Vol] 13.2 g/dL Normal 13.0-16.5 [facility] Comment on above: Order Comment: 109-1 Performed By: #### L 100.0100 ####[facility] [address] [place], [address] IG% 0.400 Normal 0.0-0.9 [facility] Comment on above: Order Comment: 109-1 Result Comment: IG% - Immature Granulocytes (promyelocytes, myelocytes andmetamyelocytes) > 1% indicates that a LEFT SHIFT is Present. Performed By: #### L 100.0100 ####[facility] [address] [place], [address] Lymphocytes/100 WBC (Bld) 15.7 % Low 19-41 [facility] Comment on above: Order Comment: 109-1 Performed By: #### L 100.0100 ####[facility] [address] [place], [address] MCH (RBC) [Entitic mass] 30.1 pg Normal 27.0-32.0 [facility] Comment on above: Order Comment: 109-1 Performed By: #### L 100.0100 ####[facility] [address] [place], [address] MCHC (RBC) [Mass/Vol] 32.9 g/dL Normal 32-36 [facility] Comment on above: Order Comment: 109-1 Performed By: #### L 100.0100 ####[facility] [address] [place], [address] MCV (RBC) [Entitic vol] 91.3 fL Normal 80-94 [facility] Comment on above: Order Comment: 109-1 Performed By: #### L 100.0100 ####[facility] [address] [place], [address] Monocytes/100 WBC (Bld) 6.6 % Normal 0-10 [facility] Comment on above: Order Comment: 109-1 Performed By: #### L 100.0100 ####[facility] [address] [place], [address] Neutrophils/100 WBC (Bld) 76.5 % High 47-70 [facility] Comment on above: Order Comment: 109-1 Performed By: #### L 100.0100 ####[facility] [address] [place], [address] Nucleated RBC (Bld) [#/Vol] 0 10*3/uL Normal 0-5 [facility] Comment on above: Order Comment: 109-1 Performed By: #### L 100.0100 ####[facility] [address] [place], [address] Platelet mean volume (Bld) [Entitic vol] 11.1 fL Normal 6.2-12.0 [facility] Comment on above: Order Comment: 109-1 Performed By: #### L 100.0100 ####[facility] [address] [place], [address] Platelets (Bld) [#/Vol] 249 10*3/uL Normal 150-450 [facility] Comment on above: Order Comment: 109-1 Performed By: #### L 100.0100 ####[facility] [address] [place], [address] RBC (Bld) [#/Vol] 4.39 10*6/uL Low 4.6-6.2 [facility] Comment on above: Order Comment: 109-1 Performed By: #### L 100.0100 ####[facility] [address] [place], [address] RDW SD 42.8 fl Normal 35.1-43.9 [facility] Comment on above: Order Comment: 109-1 Performed By: #### L 100.0100 ####[facility] [address] [place], [place], [id number]) WBC (Bld) [#/Vol] 12.4 10*3/uL High 4.4-11.0 [facility] Comment on above: Order Comment: 109-1 Performed By: #### L 100.0100 ####[facility] [address] [place], [address] Eosinophil percentageOrdered By: Renard Burgos on 06-03-2024 Eosinophils/100 WBC (Bld) 0.3 % 0-5 [facility] Erythrocyte distribution wid th ratioOrdered By: Renard Burgos on 06-03-2024 Erythrocyte distribution width (RBC) [Ratio] 13.0 % 11.6-14.6 [facility] Erythrocyte distribution wid th standard deviationOrdered By: Renard Burgos on 06-03-2024 Erythrocyte distribution width (RBC) [Entitic vol] 42.8 fL 35.1-43.9 [facility] Erythrocyte distribution width (RBC) [Ratio] 42.8 fl 35.1-43.9 [facility] Hematocrit Auto (Bld) [Volum e fraction]Ordered By: Renard Burgos on 06-03-2024 Hematocrit (Bld) [Volume fraction] 40.1 % 40-54 [facility] Hemoglobin measurementOrdere d By: Renard Burgos on 06-03-2024 Hemoglobin (Bld) [Mass/Vol] 13.2 g/dL 13.0-16.5 [facility] Immature granulocytes/100 WB C Auto (Bld)Ordered By: Renard Burgos on 06-03-2024 Immature granulocytes/100 WBC (Bld) 0.400 % 0.0-0.9 [facility] Comment on above: IG% - Immature Granu locytes (promyelocytes, myelocytes and metamyelocytes) > 1% indicates that a LEFT SHIFT is Present. Lymphocytes Auto (Unsp spec) [#/Vol]Ordered By: Renard Burgos on 06-03-2024 Lymphocytes (Bld) [#/Vol] 1.94 10*3/uL 0.83-4.51 [facility] Lymphocytes/100 WBC Auto (Un sp spec)Ordered By: Renard Burgos on 06-03-2024 Lymphocytes/100 WBC (Bld) 15.7 % Low 19-41 [facility] MCV (mean corpuscular volume ) determinationOrdered By: Renard Burgos on 06-03-2024 MCV (RBC) [Entitic vol] 91.3 fL 80-94 [facility] Mean corpuscular hemoglobin (MCH) determinationOrdered By: Renard Burgos on 06-03-2024 MCH (RBC) [Entitic mass] 30.1 pg 27.0-32.0 [facility] Mean corpuscular hemoglobin concentration (MCHC) determinationOrdered By: Renard Burgos on 06-03-2024 MCHC (RBC) [Mass/Vol] 32.9 g/dL 32-36 [facility] Mean platelet volume determi nationOrdered By: Renard Burgos on 06-03-2024 Platelet mean volume (Bld) [Entitic vol] 11.1 fL 6.2-12.0 [facility] Monocyte percentageOrdered B y: Renard Burgos on 06-03-2024 Monocytes/100 WBC (Bld) 6.6 % 0-10 [facility] Neutrophil percentageOrdered By: Renard Burgos on 06-03-2024 Neutrophils/100 WBC (Bld) 76.5 % High 47-70 [facility] Nucleated red blood cell per centageOrdered By: Renard Burgos on 06-03-2024 Nucleated RBC/100 WBC (Bld) [Ratio] 0 % 0-5 [facility] Platelet countOrdered By: Garrick Bhatt on 06-03-2024 Platelets (Bld) [#/Vol] 249 10*3/uL 150-450 [facility] RBC Auto (Bld) [#/Vol]Ordere d By: Renard Burgos on 06-03-2024 RBC (Bld) [#/Vol] 4.39 10*6/uL Low 4.6-6.2 [facility] White blood cell (WBC) count Ordered By: Renrad Burgos on 06-03-2024 WBC (Bld) [#/Vol] 12.4 10*3/uL High 4.4-11.0 [facility] Absolute lymphocyte countOrd ered By: Renard Hensleyrustam on 05-27-2024 Lymphocytes Auto (Unsp spec) [#/Vol] 1.81 10*3/uL 0.83-4.51 [facility] Absolute neutrophil countOrd ered By: Renard Burgos on 05-27-2024 Neutrophils (Bld) [#/Vol] 5.0 10*3/uL 2.0-7.7 [facility] Automated lymphocyte count a s percentage of total leukocytesOrdered By: Renard Burgos on 05-27-2024 Lymphocytes/100 WBC Auto (Unsp spec) 24.4 % 19-41 [facility] Basophil percentageOrdered B y: Renard Burgos on 05-27-2024 Basophils/100 WBC (Bld) 0.5 % 0-1 [facility] CBC W/Diff, Automatedon 05-02 Absolute Lymph 1.81 X10 3/uL Normal 0.83-4.51 [facility] Comment on above: Order Comment: 109.1 Performed By: #### L 100.0100 ####[facility] [address] [facility] [place], [address] Absolute Neut 5.0 X10 3/uL Normal 2.0-7.7 [facility] Comment on above: Order Comment: 109.1 Performed By: #### L 100.0100 ####[facility] [address] [place], [address] Basophils/100 WBC (Bld) 0.5 % Normal 0-1 [facility] Comment on above: Order Comment: 109.1 Performed By: #### L 100.0100 ####[facility] [address] [place], [address] Eosinophils/100 WBC (Bld) 0.5 % Normal 0-5 [facility] Comment on above: Order Comment: 109.1 Performed By: #### L 100.0100 ####[facility] [address] [place], [address] Erythrocyte distribution width (RBC) [Ratio] 12.8 % Normal 11.6-14.6 [facility] Comment on above: Order Comment: 109.1 Performed By: #### L 100.0100 ####[facility] [address] [place], [address] Hematocrit (Bld) [Volume fraction] 39.8 % Low 40-54 [facility] Comment on above: Order Comment: 109.1 Performed By: #### L 100.0100 ####[facility] [address] [place], [address] Hemoglobin (Bld) [Mass/Vol] 13.2 g/dL Normal 13.0-16.5 [facility] Comment on above: Order Comment: 109.1 Performed By: #### L 100.0100 ####[facility] [address] [place], [address] IG% 0.400 Normal 0.0-0.9 [facility] Comment on above: Order Comment: 109.1 Result Comment: IG% - Immature Granulocytes (promyelocytes, myelocytes andmetamyelocytes) > 1% indicates that a LEFT SHIFT is Present. Performed By: #### L 100.0100 ####[facility] [address] [place], [address] Lymphocytes/100 WBC (Bld) 24.4 % Normal 19-41 [facility] Comment on above: Order Comment: 109.1 Performed By: #### L 100.0100 ####[facility] [address] [place], [address] MCH (RBC) [Entitic mass] 30.2 pg Normal 27.0-32.0 [facility] Comment on above: Order Comment: 109.1 Performed By: #### L 100.0100 ####[facility] [address] [place], [address] MCHC (RBC) [Mass/Vol] 33.2 g/dL Normal 32-36 [facility] Comment on above: Order Comment: 109.1 Performed By: #### L 100.0100 ####[facility] [address] [place], [address] MCV (RBC) [Entitic vol] 91.1 fL Normal 80-94 [facility] Comment on above: Order Comment: 109.1 Performed By: #### L 100.0100 ####[facility] [address] [place], [address] Monocytes/100 WBC (Bld) 7.0 % Normal 0-10 [facility] Comment on above: Order Comment: 109.1 Performed By: #### L 100.0100 ####[facility] [address] [place], [address] Neutrophils/100 WBC (Bld) 67.2 % Normal 47-70 [facility] Comment on above: Order Comment: 109.1 Performed By: #### L 100.0100 ####[facility] [address] [place], [address] Nucleated RBC (Bld) [#/Vol] 0 10*3/uL Normal 0-5 [facility] Comment on above: Order Comment: 109.1 Performed By: #### L 100.0100 ####[facility] [address] [place], [address] Platelet mean volume (Bld) [Entitic vol] 10.3 fL Normal 6.2-12.0 [facility] Comment on above: Order Comment: 109.1 Performed By: #### L 100.0100 ####[facility] [address] [place], [address] Platelets (Bld) [#/Vol] 239 10*3/uL Normal 150-450 [facility] Comment on above: Order Comment: 109.1 Performed By: #### L 100.0100 ####[facility] [address] [place], [address] RBC (Bld) [#/Vol] 4.37 10*6/uL Low 4.6-6.2 [facility] Comment on above: Order Comment: 109.1 Performed By: #### L 100.0100 ####[facility] [address] [place], [address] RDW SD 42.5 fl Normal 35.1-43.9 [facility] Comment on above: Order Comment: 109.1 Performed By: #### L 100.0100 ####[facility] [address] [place], [address] WBC (Bld) [#/Vol] 7.4 10*3/uL Normal 4.4-11.0 [facility] Comment on above: Order Comment: 109.1 Performed By: #### L 100.0100 ####[facility] [address] [place], [address] Eosinophil percentageOrdered By: Renard Burgos on 05-27-2024 Eosinophils/100 WBC (Bld) 0.5 % 0-5 [facility] Erythrocyte distribution wid th ratioOrdered By: Renard Burgos on 05-27-2024 Erythrocyte distribution width (RBC) [Ratio] 12.8 % 11.6-14.6 [facility] Erythrocyte distribution wid th standard deviationOrdered By: Renard Burgos on 05-27-2024 Erythrocyte distribution width (RBC) [Entitic vol] 42.5 fL 35.1-43.9 [facility] Erythrocyte distribution width (RBC) [Ratio] 42.5 fl 35.1-43.9 [facility] Hematocrit Auto (Bld) [Volum e fraction]Ordered By: Renard Burgos on 05-27-2024 Hematocrit (Bld) [Volume fraction] 39.8 % Low 40-54 [facility] Hemoglobin measurementOrdere d By: Renard Burgos on 05-27-2024 Hemoglobin (Bld) [Mass/Vol] 13.2 g/dL 13.0-16.5 [facility] Immature granulocytes/100 WB C Auto (Bld)Ordered By: Renard Burgos on 05-27-2024 Immature granulocytes/100 WBC (Bld) 0.400 % 0.0-0.9 [facility] Comment on above: IG% - Immature Granu locytes (promyelocytes, myelocytes and metamyelocytes) > 1% indicates that a LEFT SHIFT is Present. Lymphocytes Auto (Unsp spec) [#/Vol]Ordered By: Renard Burgos on 05-27-2024 Lymphocytes (Bld) [#/Vol] 1.81 10*3/uL 0.83-4.51 [facility] Lymphocytes/100 WBC Auto (Un sp spec)Ordered By: Renard Burgos on 05-27-2024 Lymphocytes/100 WBC (Bld) 24.4 % 19-41 [facility] MCV (mean corpuscular volume ) determinationOrdered By: Renard Burgos on 05-27-2024 MCV (RBC) [Entitic vol] 91.1 fL 80-94 [facility] Mean corpuscular hemoglobin (MCH) determinationOrdered By: Renard Burgos on 05-27-2024 MCH (RBC) [Entitic mass] 30.2 pg 27.0-32.0 [facility] Mean corpuscular hemoglobin concentration (MCHC) determinationOrdered By: Renard Burgos on 05-27-2024 MCHC (RBC) [Mass/Vol] 33.2 g/dL 32-36 [facility] Mean platelet volume determi nationOrdered By: Renard Burgos on 05-27-2024 Platelet mean volume (Bld) [Entitic vol] 10.3 fL 6.2-12.0 [facility] Monocyte percentageOrdered B y: Renard Burgos on 05-27-2024 Monocytes/100 WBC (Bld) 7.0 % 0-10 [facility] Neutrophil percentageOrdered By: Renard Burgos on 05-27-2024 Neutrophils/100 WBC (Bld) 67.2 % 47-70 [facility] Nucleated red blood cell per centageOrdered By: Renard Burgos on 05-27-2024 Nucleated RBC/100 WBC (Bld) [Ratio] 0 % 0-5 [facility] Platelet countOrdered By: Garrick Bhatt on 05-27-2024 Platelets (Bld) [#/Vol] 239 10*3/uL 150-450 [facility] RBC Auto (Bld) [#/Vol]Ordere d By: Renard Burgos on 05-27-2024 RBC (Bld) [#/Vol] 4.37 10*6/uL Low 4.6-6.2 [facility] White blood cell (WBC) count Ordered By: Renard Burgos on 05-27-2024 WBC (Bld) [#/Vol] 7.4 10*3/uL 4.4-11.0 [facility] Absolute lymphocyte countOrd ered By: Renard Burgos on 05-20-2024 Lymphocytes Auto (Unsp spec) [#/Vol] 1.73 10*3/uL 0.83-4.51 [facility] Absolute neutrophil countOrd ered By: Renard Burgos on 05-20-2024 Neutrophils (Bld) [#/Vol] 7.0 10*3/uL 2.0-7.7 [facility] Automated blood erythrocyte countOrdered By: Renard Burgos on 05-20-2024 RBC (Bld) [#/Vol] 4.74 10*6/uL Normal 4.6-6.2 [facility] Comment on above: Order Comment: 109-1 Performed By: #### L 100.0100 ####[facility] [address] [place], [place], [address] Automated blood hematocrit ( percentage)Ordered By: Renard Burgos on 05-20-2024 Hematocrit (Bld) [Volume fraction] 43.6 % Normal 40-54 [facility] Comment on above: Order Comment: 109-1 Performed By: #### L 100.0100 ####[facility] [address] [facility] [facility] [address] [place], [place], [address] Automated lymphocyte count a s percentage of total leukocytesOrdered By: Renard Burgos on 05-20-2024 Lymphocytes/100 WBC (Bld) 17.7 % Low 19-41 [facility] Comment on above: Order Comment: 109-1 Performed By: #### L 100.0100 ####[facility] [address] [place], [address] Lymphocytes/100 WBC Auto (Unsp spec) 17.7 % Low -41 [facility] Basophil percentageOrdered B y: Renard Burgos on 05-20-2024 Basophils/100 WBC (Bld) 0.5 % Normal 0-1 [facility] Comment on above: Order Comment: 109-1 Performed By: #### L 100.0100 ####[facility] [address] [place], [address] CBC W/Diff, Automatedon 05-02 Absolute Lymph 1.73 X10 3/uL Normal 0.83-4.51 [facility] Comment on above: Order Comment: 109-1 Performed By: #### L 100.0100 ####[facility] [address] [place], [address] Absolute Neut 7.0 X10 3/uL Normal 2.0-7.7 [facility] Comment on above: Order Comment: 109-1 Performed By: #### L 100.0100 ####[facility] [address] [place], [address] IG% 0.500 Normal 0.0-0.9 [facility] Comment on above: Order Comment: 109-1 Result Comment: IG% - Immature Granulocytes (promyelocytes, myelocytes andmetamyelocytes) > 1% indicates that a LEFT SHIFT is Present. Performed By: #### L 100.0100 ####[facility] [address] [place], [address] Nucleated RBC (Bld) [#/Vol] 0 10*3/uL Normal 0-5 [facility] Comment on above: Order Comment: 109-1 Performed By: #### L 100.0100 ####[facility] [address] [place], [address] RDW SD 42.5 fl Normal 35.1-43.9 [facility] Comment on above: Order Comment: 109-1 Performed By: #### L 100.0100 ####[facility] [address] [place], [address] Eosinophil percentageOrdered By: Renard Burgos on 05-20-2024 Eosinophils/100 WBC (Bld) 0.5 % Normal 0-5 [facility] Comment on above: Order Comment: 109-1 Performed By: #### L 100.0100 ####[facility] [address] [place], [address] Erythrocyte distribution wid th ratioOrdered By: Renard Burgos on 05-20-2024 Erythrocyte distribution width (RBC) [Ratio] 12.6 % Normal 11.6-14.6 [facility] Comment on above: Order Comment: 109-1 Performed By: #### L 100.0100 ####[facility] [address] [place], [place], [id number] Erythrocyte distribution wid th standard deviationOrdered By: Renard Burgos on 05-20-2024 Erythrocyte distribution width (RBC) [Entitic vol] 42.5 fL 35.1-43.9 [facility] Erythrocyte distribution width (RBC) [Ratio] 42.5 fl 35.1-43.9 [facility] Hemoglobin measurementOrdere d By: Renard Burgos on 05-20-2024 Hemoglobin (Bld) [Mass/Vol] 14.4 g/dL Normal 13.0-16.5 [facility] Comment on above: Order Comment: 109-1 Performed By: #### L 100.0100 ####[facility] [address] [place], [address] Immature granulocytes/100 WB C Auto (Bld)Ordered By: Renard Burgos on 05-20-2024 Immature granulocytes/100 WBC (Bld) 0.500 % 0.0-0.9 [facility] Comment on above: IG% - Immature Granu locytes (promyelocytes, myelocytes and metamyelocytes) > 1% indicates that a LEFT SHIFT is Present. Lymphocytes Auto (Unsp spec) [#/Vol]Ordered By: Renard Burgos on 05-20-2024 Lymphocytes (Bld) [#/Vol] 1.73 10*3/uL 0.83-4.51 [facility] MCV (mean corpuscular volume ) determinationOrdered By: Renard Burgos on 05-20-2024 MCV (RBC) [Entitic vol] 92.0 fL Normal 80-94 [facility] Comment on above: Order Comment: 109-1 Performed By: #### L 100.0100 ####[facility] [address] [place], [address] Mean corpuscular hemoglobin (MCH) determinationOrdered By: Renard Burgos on 05-20-2024 MCH (RBC) [Entitic mass] 30.4 pg Normal 27.0-32.0 [facility] Comment on above: Order Comment: 109-1 Performed By: #### L 100.0100 ####[facility] [address] [place], [address] Mean corpuscular hemoglobin concentration (MCHC) determinationOrdered By: Renard Burgos on 05-20-2024 MCHC (RBC) [Mass/Vol] 33.0 g/dL Normal 32-36 [facility] Comment on above: Order Comment: 109-1 Performed By: #### L 100.0100 ####[facility] [address] [place], [address] Mean platelet volume determi nationOrdered By: Renard Burgos on 05-20-2024 Platelet mean volume (Bld) [Entitic vol] 10.7 fL Normal 6.2-12.0 [facility] Comment on above: Order Comment: 109-1 Performed By: #### L 100.0100 ####[facility] [address] [place], [address] Monocyte percentageOrdered B y: Renard Burgos on 05-20-2024 Monocytes/100 WBC (Bld) 9.4 % Normal 0-10 [facility] Comment on above: Order Comment: 109-1 Performed By: #### L 100.0100 ####[facility] [address] [place], [address] Neutrophil percentageOrdered By: Renard Burgos on 05-20-2024 Neutrophils/100 WBC (Bld) 71.4 % High 47-70 [facility] Comment on above: Order Comment: 109-1 Performed By: #### L 100.0100 ####[facility] [address] [place], [address] Nucleated red blood cell per centageOrdered By: Renard Burgos on 05-20-2024 Nucleated RBC/100 WBC (Bld) [Ratio] 0 % 0-5 [facility] Platelet countOrdered By: Garrick Bhatt on 05-20-2024 Platelets (Bld) [#/Vol] 239 10*3/uL Normal 150-450 [facility] Comment on above: Order Comment: 109-1 Performed By: #### L 100.0100 ####[facility] [address] [place], [address] White blood cell (WBC) count Ordered By: Renard Burgos on 05-20-2024 WBC (Bld) [#/Vol] 9.8 10*3/uL Normal 4.4-11.0 [facility] Comment on above: Order Comment: 109-1 Performed By: #### L 100.0100 ####[facility] [address] [place], [address] Absolute lymphocyte countOrd ered By: Renard Burgos on 05-13-2024 Lymphocytes Auto (Unsp spec) [#/Vol] 2.10 10*3/uL 0.83-4.51 [facility] Absolute neutrophil countOrd ered By: Renard Burgos on 05-13-2024 Neutrophils (Bld) [#/Vol] 6.2 10*3/uL 2.0-7.7 [facility] Automated lymphocyte count a s percentage of total leukocytesOrdered By: Renard Burgos on 05-13-2024 Lymphocytes/100 WBC Auto (Unsp spec) 22.8 % 19-41 [facility] Basophil percentageOrdered B y: Renard Hensleyrustam on 05-13-2024 Basophils/100 WBC (Bld) 0.5 % 0-1 [facility] CBC W/Diff, Automatedon 05-01-2024 Absolute Lymph 2.10 X10 3/uL Normal 0.83-4.51 [facility] Comment on above: Order Comment: 109 Performed By: #### L 100.0100 ####[facility] [address] [place], [address] Absolute Neut 6.2 X10 3/uL Normal 2.0-7.7 [facility] Comment on above: Order Comment: 109 Performed By: #### L 100.0100 ####[facility] [address] [place], [address] Basophils/100 WBC (Bld) 0.5 % Normal 0-1 [facility] Comment on above: Order Comment: 109 Performed By: #### L 100.0100 ####[facility] [address] [place], [address] Eosinophils/100 WBC (Bld) 0.5 % Normal 0-5 [facility] Comment on above: Order Comment: 109 Performed By: #### L 100.0100 ####[facility] [address] [place], [address] Erythrocyte distribution width (RBC) [Ratio] 12.9 % Normal 11.6-14.6 [facility] Comment on above: Order Comment: 109 Performed By: #### L 100.0100 ####[facility] [address] [place], [address] Hematocrit (Bld) [Volume fraction] 42.5 % Normal 40-54 [facility] Comment on above: Order Comment: 109 Performed By: #### L 100.0100 ####[facility] [address] [place], [address] Hemoglobin (Bld) [Mass/Vol] 14.2 g/dL Normal 13.0-16.5 [facility] Comment on above: Order Comment: 109 Performed By: #### L 100.0100 ####[facility] [address] [place], [address] IG% 0.300 Normal 0.0-0.9 [facility] Comment on above: Order Comment: 109 Result Comment: IG% - Immature Granulocytes (promyelocytes, myelocytes andmetamyelocytes) > 1% indicates that a LEFT SHIFT is Present. Performed By: #### L 100.0100 ####[facility] [address] [place], [address] Lymphocytes/100 WBC (Bld) 22.8 % Normal 19-41 [facility] Comment on above: Order Comment: 109 Performed By: #### L 100.0100 ####[facility] [address] [place], [address] MCH (RBC) [Entitic mass] 30.3 pg Normal 27.0-32.0 [facility] Comment on above: Order Comment: 109 Performed By: #### L 100.0100 ####[facility] [address] [place], [address] MCHC (RBC) [Mass/Vol] 33.4 g/dL Normal 32-36 [facility] Comment on above: Order Comment: 109 Performed By: #### L 100.0100 ####[facility] [address] [place], [address] MCV (RBC) [Entitic vol] 90.6 fL Normal 80-94 [facility] Comment on above: Order Comment: 109 Performed By: #### L 100.0100 ####[facility] [address] [place], [address] Monocytes/100 WBC (Bld) 8.7 % Normal 0-10 [facility] Comment on above: Order Comment: 109 Performed By: #### L 100.0100 ####[facility] [address] [place], [address] Neutrophils/100 WBC (Bld) 67.2 % Normal 47-70 [facility] Comment on above: Order Comment: 109 Performed By: #### L 100.0100 ####[facility] [address] [place], [address] Nucleated RBC (Bld) [#/Vol] 0 10*3/uL Normal 0-5 [facility] Comment on above: Order Comment: 109 Performed By: #### L 100.0100 ####[facility] [address] [place], [address] Platelet mean volume (Bld) [Entitic vol] 11.1 fL Normal 6.2-12.0 [facility] Comment on above: Order Comment: 109 Performed By: #### L 100.0100 ####[facility] [address] [place], [address] Platelets (Bld) [#/Vol] 218 10*3/uL Normal 150-450 [facility] Comment on above: Order Comment: 109 Performed By: #### L 100.0100 ####[facility] [address] [place], [address] RBC (Bld) [#/Vol] 4.69 10*6/uL Normal 4.6-6.2 [facility] Comment on above: Order Comment: 109 Performed By: #### L 100.0100 ####[facility] [address] [place], [address] RDW SD 42.3 fl Normal 35.1-43.9 [facility] Comment on above: Order Comment: 109 Performed By: #### L 100.0100 ####[facility] [address] [place], [address] WBC (Bld) [#/Vol] 9.2 10*3/uL Normal 4.4-11.0 [facility] Comment on above: Order Comment: 109 Performed By: #### L 100.0100 ####[facility] [address] [place], [address] Eosinophil percentageOrdered By: Renard Burgos on 05-13-2024 Eosinophils/100 WBC (Bld) 0.5 % 0-5 [facility] Erythrocyte distribution wid th ratioOrdered By: Renard Burgos on 05-13-2024 Erythrocyte distribution width (RBC) [Ratio] 12.9 % 11.6-14.6 [facility] Erythrocyte distribution wid th standard deviationOrdered By: Renard Burgos on 05-13-2024 Erythrocyte distribution width (RBC) [Entitic vol] 42.3 fL 35.1-43.9 [facility] Erythrocyte distribution width (RBC) [Ratio] 42.3 fl 35.1-43.9 [facility] Hematocrit Auto (Bld) [Volum e fraction]Ordered By: Renard Burgos on 05-13-2024 Hematocrit (Bld) [Volume fraction] 42.5 % 40-54 [facility] Hemoglobin measurementOrdere d By: Renard Burgos on 05-13-2024 Hemoglobin (Bld) [Mass/Vol] 14.2 g/dL 13.0-16.5 [facility] Immature granulocytes/100 WB C Auto (Bld)Ordered By: Renard Burgos on 05-13-2024 Immature granulocytes/100 WBC (Bld) 0.300 % 0.0-0.9 [facility] Comment on above: IG% - Immature Granu locytes (promyelocytes, myelocytes and metamyelocytes) > 1% indicates that a LEFT SHIFT is Present. Lymphocytes Auto (Unsp spec) [#/Vol]Ordered By: Renard Burgos on 05-13-2024 Lymphocytes (Bld) [#/Vol] 2.10 10*3/uL 0.83-4.51 [facility] Lymphocytes/100 WBC Auto (Un sp spec)Ordered By: Renard Burgos on 05-13-2024 Lymphocytes/100 WBC (Bld) 22.8 % 19-41 [facility] MCV (mean corpuscular volume ) determinationOrdered By: Renard Burgos on 05-13-2024 MCV (RBC) [Entitic vol] 90.6 fL 80-94 [facility] Mean corpuscular hemoglobin (MCH) determinationOrdered By: Renard Burgos on 05-13-2024 MCH (RBC) [Entitic mass] 30.3 pg 27.0-32.0 [facility] Mean corpuscular hemoglobin concentration (MCHC) determinationOrdered By: Renard Burgos on 05-13-2024 MCHC (RBC) [Mass/Vol] 33.4 g/dL 32-36 [facility] Mean platelet volume determi nationOrdered By: Renard Burgos on 05-13-2024 Platelet mean volume (Bld) [Entitic vol] 11.1 fL 6.2-12.0 [facility] Monocyte percentageOrdered B y: Renard Burgso on 05-13-2024 Monocytes/100 WBC (Bld) 8.7 % 0-10 [facility] Neutrophil percentageOrdered By: Renard Burgos on 05-13-2024 Neutrophils/100 WBC (Bld) 67.2 % 47-70 [facility] Nucleated red blood cell per centageOrdered By: Renard Burgos on 05-13-2024 Nucleated RBC/100 WBC (Bld) [Ratio] 0 % 0-5 [facility] Platelet countOrdered By: Garrick Bhatt on 05-13-2024 Platelets (Bld) [#/Vol] 218 10*3/uL 150-450 [facility] RBC Auto (Bld) [#/Vol]Ordere d By: Renard Burgos on 05-13-2024 RBC (Bld) [#/Vol] 4.69 10*6/uL 4.6-6.2 [facility] White blood cell (WBC) count Ordered By: Renard Burgos on 05-13-2024 WBC (Bld) [#/Vol] 9.2 10*3/uL 4.4-11.0 [facility] Absolute neutrophil countOrd ered By: Renard Burgos on 05-06-2024 Neutrophils (Bld) [#/Vol] 5.9 10*3/uL 2.0-7.7 [facility] Automated blood erythrocyte countOrdered By: Renard Burgos on 05-06-2024 RBC (Bld) [#/Vol] 4.85 10*6/uL Normal 4.6-6.2 [facility] Comment on above: Order Comment: 109-1 Performed By: #### L 100.0100 ####[facility] [address] [place], [place], [address] Automated blood hematocrit ( percentage)Ordered By: Renard Burgos on 05-06-2024 Hematocrit (Bld) [Volume fraction] 45.0 % Normal 40-54 [facility] Comment on above: Order Comment: 109-1 Performed By: #### L 100.0100 ####[facility] [address] [place], [place], [address] Automated lymphocyte count a s percentage of total leukocytesOrdered By: Renard Burgos on 05-06-2024 Lymphocytes/100 WBC (Bld) 24.4 % Normal 19-41 [facility] Comment on above: Order Comment: 109-1 Performed By: #### L 100.0100 ####[facility] [address] [place], [address] Basophil percentageOrdered B y: Renard Burgos on 05-06-2024 Basophils/100 WBC (Bld) 0.5 % Normal 0-1 [facility] Comment on above: Order Comment: 109-1 Performed By: #### L 100.0100 ####[facility] [address] [place], [place], [address] CBC W/Diff, Automatedon Absolute Lymph 2.22 X10 3/uL Normal 0.83-4.51 [facility] Comment on above: Order Comment: 109-1 Performed By: #### L 100.0100 ####[facility] [address] [place], [address] Absolute Neut 5.9 X10 3/uL Normal 2.0-7.7 [facility] Comment on above: Order Comment: 109-1 Performed By: #### L 100.0100 ####[facility] [address] [place], [address] IG% 0.500 Normal 0.0-0.9 [facility] Comment on above: Order Comment: 109-1 Result Comment: IG% - Immature Granulocytes (promyelocytes, myelocytes andmetamyelocytes) > 1% indicates that a LEFT SHIFT is Present. Performed By: #### L 100.0100 ####[facility] [address] [place], [address] Nucleated RBC (Bld) [#/Vol] 0 10*3/uL Normal 0-5 [facility] Comment on above: Order Comment: 109-1 Performed By: #### L 100.0100 ####[facility] [address] [place], [address] RDW SD 43.9 fl Normal 35.1-43.9 [facility] Comment on above: Order Comment: 109-1 Performed By: #### L 100.0100 ####[facility] [address] [place], [address] Eosinophil percentageOrdered By: Renard Burgos on 05-06-2024 Eosinophils/100 WBC (Bld) 0.4 % Normal 0-5 [facility] Comment on above: Order Comment: 109-1 Performed By: #### L 100.0100 ####[facility] [address] [place], [address] Erythrocyte distribution wid th ratioOrdered By: Renard Burgos on 05-06-2024 Erythrocyte distribution width (RBC) [Ratio] 13.0 % Normal 11.6-14.6 [facility] Comment on above: Order Comment: 109-1 Performed By: #### L 100.0100 ####[facility] [address] [place], [place], [address] Erythrocyte distribution wid th standard deviationOrdered By: Renard Burgos on 05-06-2024 Erythrocyte distribution width (RBC) [Entitic vol] 43.9 fL 35.1-43.9 [facility] Hemoglobin measurementOrdere d By: Renard Burgos on 05-06-2024 Hemoglobin (Bld) [Mass/Vol] 14.5 g/dL Normal 13.0-16.5 [facility] Comment on above: Order Comment: 109-1 Performed By: #### L 100.0100 ####[facility] [address] [place], [address] Immature granulocytes/100 WB C Auto (Bld)Ordered By: Renard Burgos on 05-06-2024 Immature granulocytes/100 WBC (Bld) 0.500 % 0.0-0.9 [facility] Comment on above: IG% - Immature Granu locytes (promyelocytes, myelocytes and metamyelocytes) > 1% indicates that a LEFT SHIFT is Present. Lymphocytes Auto (Unsp spec) [#/Vol]Ordered By: Renard Burgos on 05-06-2024 Lymphocytes (Bld) [#/Vol] 2.22 10*3/uL 0.83-4.51 [facility] MCV (mean corpuscular volume ) determinationOrdered By: Renard Burgos on 05-06-2024 MCV (RBC) [Entitic vol] 92.8 fL Normal 80-94 [facility] Comment on above: Order Comment: 109-1 Performed By: #### L 100.0100 ####[facility] [address] [place], [address] Mean corpuscular hemoglobin (MCH) determinationOrdered By: Renard Burgos on 05-06-2024 MCH (RBC) [Entitic mass] 29.9 pg Normal 27.0-32.0 [facility] Comment on above: Order Comment: 109-1 Performed By: #### L 100.0100 ####[facility] [address] [place], [place], [id number] Mean corpuscular hemoglobin concentration (MCHC) determinationOrdered By: Renard Burgos on 05-06-2024 MCHC (RBC) [Mass/Vol] 32.2 g/dL Normal 32-36 [facility] Comment on above: Order Comment: 109-1 Performed By: #### L 100.0100 ####[facility] [address] [place], [address] Mean platelet volume determi nationOrdered By: Renard Burgos on 05-06-2024 Platelet mean volume (Bld) [Entitic vol] 11.4 fL Normal 6.2-12.0 [facility] Comment on above: Order Comment: 109-1 Performed By: #### L 100.0100 ####[facility] [address] [place], [address] Monocyte percentageOrdered B y: Renard Burgos on 05-06-2024 Monocytes/100 WBC (Bld) 9.7 % Normal 0-10 [facility] Comment on above: Order Comment: 109-1 Performed By: #### L 100.0100 ####[facility] [address] [place], [address] Neutrophil percentageOrdered By: Renard Burgos on 05-06-2024 Neutrophils/100 WBC (Bld) 64.5 % Normal 47-70 [facility] Comment on above: Order Comment: 109-1 Performed By: #### L 100.0100 ####[facility] [address] [place], [address] Nucleated red blood cell per centageOrdered By: Renard Burgos on 05-06-2024 Nucleated RBC/100 WBC (Bld) [Ratio] 0 % 0-5 [facility] Platelet countOrdered By: Garrick Bhatt on 05-06-2024 Platelets (Bld) [#/Vol] 201 10*3/uL Normal 150-450 [facility] Comment on above: Order Comment: 109-1 Performed By: #### L 100.0100 ####[facility] [address] [place], [address] White blood cell (WBC) count Ordered By: Renard Burgos on 05-06-2024 WBC (Bld) [#/Vol] 9.1 10*3/uL Normal 4.4-11.0 [facility] Comment on above: Order Comment: 109-1 Performed By: #### L 100.0100 ####[facility] [address] [place], [address] 36on 05-03-2024 36 Gissel is calling to let Dr. Burgos know that the medication he prescribed he not certified, she is going to fax the information to the office. [phone] Normal [facility] Absolute neutrophil countOrd ered By: Renard Burgos on 04-29-2024 Neutrophils (Bld) [#/Vol] 6.3 10*3/uL 2.0-7.7 [facility] Basophil percentageOrdered B y: Renard Burgos on 04-29-2024 Basophils/100 WBC (Bld) 0.4 % 0-1 [facility] CBC W/Diff, Automatedon 04-02 Absolute Lymph 2.11 X10 3/uL Normal 0.83-4.51 [facility] Comment on above: Order Comment: 109.1 Performed By: #### L 100.0100 ####[facility] [address] [place], [address] Absolute Neut 6.3 X10 3/uL Normal 2.0-7.7 [facility] Comment on above: Order Comment: 109.1 Performed By: #### L 100.0100 ####[facility] [address] [place], [address] Basophils/100 WBC (Bld) 0.4 % Normal 0-1 [facility] Comment on above: Order Comment: 109.1 Performed By: #### L 100.0100 ####[facility] [address] [place], [address] Eosinophils/100 WBC (Bld) 0.4 % Normal 0-5 [facility] Comment on above: Order Comment: 109.1 Performed By: #### L 100.0100 ####[facility] [address] [place], [address] Erythrocyte distribution width (RBC) [Ratio] 12.6 % Normal 11.6-14.6 [facility] Comment on above: Order Comment: 109.1 Performed By: #### L 100.0100 ####[facility] [address] [place], [address] Hematocrit (Bld) [Volume fraction] 41.6 % Normal 40-54 [facility] Comment on above: Order Comment: 109.1 Performed By: #### L 100.0100 ####[facility] [address] [place], [address] Hemoglobin (Bld) [Mass/Vol] 13.7 g/dL Normal 13.0-16.5 [facility] Comment on above: Order Comment: 109.1 Performed By: #### L 100.0100 ####[facility] [address] [place], [address] IG% 0.400 Normal 0.0-0.9 [facility] Comment on above: Order Comment: 109.1 Result Comment: IG% - Immature Granulocytes (promyelocytes, myelocytes andmetamyelocytes) > 1% indicates that a LEFT SHIFT is Present. Performed By: #### L 100.0100 ####[facility] [address] [place], [address] Lymphocytes/100 WBC (Bld) 22.6 % Normal 19-41 [facility] Comment on above: Order Comment: 109.1 Performed By: #### L 100.0100 ####[facility] [address] [place], [address] MCH (RBC) [Entitic mass] 30.1 pg Normal 27.0-32.0 [facility] Comment on above: Order Comment: 109.1 Performed By: #### L 100.0100 ####[facility] [address] [place], [address] MCHC (RBC) [Mass/Vol] 32.9 g/dL Normal 32-36 [facility] Comment on above: Order Comment: 109.1 Performed By: #### L 100.0100 ####[facility] [address] [place], [address] MCV (RBC) [Entitic vol] 91.4 fL Normal 80-94 [facility] Comment on above: Order Comment: 109.1 Performed By: #### L 100.0100 ####[facility] [address] [place], [address] Monocytes/100 WBC (Bld) 9.3 % Normal 0-10 [facility] Comment on above: Order Comment: 109.1 Performed By: #### L 100.0100 ####[facility] [address] [place], [address] Neutrophils/100 WBC (Bld) 66.9 % Normal 47-70 [facility] Comment on above: Order Comment: 109.1 Performed By: #### L 100.0100 ####[facility] [address] [place], [address] Nucleated RBC (Bld) [#/Vol] 0 10*3/uL Normal 0-5 [facility] Comment on above: Order Comment: 109.1 Performed By: #### L 100.0100 ####[facility] [address] [place], [address] Platelet mean volume (Bld) [Entitic vol] 11.0 fL Normal 6.2-12.0 [facility] Comment on above: Order Comment: 109.1 Performed By: #### L 100.0100 ####[facility] [address] [place], [address] Platelets (Bld) [#/Vol] 211 10*3/uL Normal 150-450 [facility] Comment on above: Order Comment: 109.1 Performed By: #### L 100.0100 ####[facility] [address] [place], [address] RBC (Bld) [#/Vol] 4.55 10*6/uL Low 4.6-6.2 [facility] Comment on above: Order Comment: 109.1 Performed By: #### L 100.0100 ####[facility] [address] [place], [address] RDW SD 41.5 fl Normal 35.1-43.9 [facility] Comment on above: Order Comment: 109.1 Performed By: #### L 100.0100 ####[facility] [address] [place], [address] WBC (Bld) [#/Vol] 9.4 10*3/uL Normal 4.4-11.0 [facility] Comment on above: Order Comment: 109.1 Performed By: #### L 100.0100 ####[facility] [address] [place], [address] Eosinophil percentageOrdered By: Renard Burgos on 04-29-2024 Eosinophils/100 WBC (Bld) 0.4 % 0-5 [facility] Erythrocyte distribution wid th ratioOrdered By: Renard Burgos on 04-29-2024 Erythrocyte distribution width (RBC) [Ratio] 12.6 % 11.6-14.6 [facility] Erythrocyte distribution wid th standard deviationOrdered By: Renard Burgos on 04-29-2024 Erythrocyte distribution width (RBC) [Entitic vol] 41.5 fL 35.1-43.9 [facility] Hematocrit Auto (Bld) [Volum e fraction]Ordered By: Renard Burgos on 04-29-2024 Hematocrit (Bld) [Volume fraction] 41.6 % 40-54 [facility] Hemoglobin measurementOrdere d By: Renard Burgos on 04-29-2024 Hemoglobin (Bld) [Mass/Vol] 13.7 g/dL 13.0-16.5 [facility] Immature granulocytes/100 WB C Auto (Bld)Ordered By: Renard Burgos on 04-29-2024 Immature granulocytes/100 WBC (Bld) 0.400 % 0.0-0.9 [facility] Comment on above: IG% - Immature Granu locytes (promyelocytes, myelocytes and metamyelocytes) > 1% indicates that a LEFT SHIFT is Present. Lymphocytes Auto (Unsp spec) [#/Vol]Ordered By: Renard Burgos on 04-29-2024 Lymphocytes (Bld) [#/Vol] 2.11 10*3/uL 0.83-4.51 [facility] Lymphocytes/100 WBC Auto (Un sp spec)Ordered By: Renard Burgos on 04-29-2024 Lymphocytes/100 WBC (Bld) 22.6 % 19-41 [facility] MCV (mean corpuscular volume ) determinationOrdered By: Renard Burgos on 04-29-2024 MCV (RBC) [Entitic vol] 91.4 fL 80-94 [facility] Mean corpuscular hemoglobin (MCH) determinationOrdered By: Renard Burgos on 04-29-2024 MCH (RBC) [Entitic mass] 30.1 pg 27.0-32.0 [facility] Mean corpuscular hemoglobin concentration (MCHC) determinationOrdered By: Renard Burgos on 04-29-2024 MCHC (RBC) [Mass/Vol] 32.9 g/dL 32-36 [facility] Mean platelet volume determi nationOrdered By: Renard Burgos on 04-29-2024 Platelet mean volume (Bld) [Entitic vol] 11.0 fL 6.2-12.0 [facility] Monocyte percentageOrdered B y: Renard Burgos on 04-29-2024 Monocytes/100 WBC (Bld) 9.3 % 0-10 [facility] Neutrophil percentageOrdered By: Renard Burgos on 04-29-2024 Neutrophils/100 WBC (Bld) 66.9 % 47-70 [facility] Nucleated red blood cell per centageOrdered By: Renard Burgos on 04-29-2024 Nucleated RBC/100 WBC (Bld) [Ratio] 0 % 0-5 [facility] Platelet countOrdered By: Garrick Bhatt on 04-29-2024 Platelets (Bld) [#/Vol] 211 10*3/uL 150-450 [facility] RBC Auto (Bld) [#/Vol]Ordere d By: Renard Burgos on 04-29-2024 RBC (Bld) [#/Vol] 4.55 10*6/uL Low 4.6-6.2 [facility] White blood cell (WBC) count Ordered By: Renard Burgos on 04-29-2024 WBC (Bld) [#/Vol] 9.4 10*3/uL 4.4-11.0 [facility] Absolute neutrophil countOrd ered By: Renard Burgos on 04-22-2024 Neutrophils (Bld) [#/Vol] 8.1 10*3/uL High 2.0-7.7 [facility] Basophil percentageOrdered B y: Renard Burgos on 04-22-2024 Basophils/100 WBC (Bld) 0.5 % 0-1 [facility] CBC W/Diff, Automatedon - Absolute Lymph 2.61 X10 3/uL Normal 0.83-4.51 [facility] Comment on above: Order Comment: 109-1 Performed By: #### L 100.0100 ####[facility] [address] [place], [place], [id number] Absolute Neut 8.1 X10 3/uL High 2.0-7.7 [facility] Comment on above: Order Comment: 109-1 Performed By: #### L 100.0100 ####[facility] [address] [place], [address] Basophils/100 WBC (Bld) 0.5 % Normal 0-1 [facility] Comment on above: Order Comment: 109-1 Performed By: #### L 100.0100 ####[facility] [address] [place], [address] Eosinophils/100 WBC (Bld) 0.4 % Normal 0-5 [facility] Comment on above: Order Comment: 109-1 Performed By: #### L 100.0100 ####[facility] [address] [place], [address] Erythrocyte distribution width (RBC) [Ratio] 12.6 % Normal 11.6-14.6 [facility] Comment on above: Order Comment: 109-1 Performed By: #### L 100.0100 ####[facility] [address] [place], [address] Hematocrit (Bld) [Volume fraction] 44.5 % Normal 40-54 [facility] Comment on above: Order Comment: 109-1 Performed By: #### L 100.0100 ####[facility] [address] [place], [address] Hemoglobin (Bld) [Mass/Vol] 14.3 g/dL Normal 13.0-16.5 [facility] Comment on above: Order Comment: 109-1 Performed By: #### L 100.0100 ####[facility] [address] [place], [address] IG% 0.300 Normal 0.0-0.9 [facility] Comment on above: Order Comment: 109-1 Result Comment: IG% - Immature Granulocytes (promyelocytes, myelocytes andmetamyelocytes) > 1% indicates that a LEFT SHIFT is Present. Performed By: #### L 100.0100 ####[facility] [address] [place], [address] Lymphocytes/100 WBC (Bld) 22.0 % Normal 19-41 [facility] Comment on above: Order Comment: 109-1 Performed By: #### L 100.0100 ####[facility] [address] [place], [address] MCH (RBC) [Entitic mass] 29.7 pg Normal 27.0-32.0 [facility] Comment on above: Order Comment: 109-1 Performed By: #### L 100.0100 ####[facility] [address] [place], [address] MCHC (RBC) [Mass/Vol] 32.1 g/dL Normal 32-36 [facility] Comment on above: Order Comment: 109-1 Performed By: #### L 100.0100 ####[facility] [address] [place], [address] MCV (RBC) [Entitic vol] 92.5 fL Normal 80-94 [facility] Comment on above: Order Comment: 109-1 Performed By: #### L 100.0100 ####[facility] [address] [place], [address] Monocytes/100 WBC (Bld) 8.3 % Normal 0-10 [facility] Comment on above: Order Comment: 109-1 Performed By: #### L 100.0100 ####[facility] [address] [place], [address] Neutrophils/100 WBC (Bld) 68.5 % Normal 47-70 [facility] Comment on above: Order Comment: 109-1 Performed By: #### L 100.0100 ####[facility] [address] [place], [address] Nucleated RBC (Bld) [#/Vol] 0 10*3/uL Normal 0-5 [facility] Comment on above: Order Comment: 109-1 Performed By: #### L 100.0100 ####[facility] [address] [place], [address] Platelet mean volume (Bld) [Entitic vol] 11.0 fL Normal 6.2-12.0 [facility] Comment on above: Order Comment: 109-1 Performed By: #### L 100.0100 ####[facility] [address] [place], [address] Platelets (Bld) [#/Vol] 190 10*3/uL Normal 150-450 [facility] Comment on above: Order Comment: 109-1 Performed By: #### L 100.0100 ####[facility] [address] [place], [address] RBC (Bld) [#/Vol] 4.81 10*6/uL Normal 4.6-6.2 [facility] Comment on above: Order Comment: 109-1 Performed By: #### L 100.0100 ####[facility] [address] [place], [address] RDW SD 43.0 fl Normal 35.1-43.9 [facility] Comment on above: Order Comment: 109-1 Performed By: #### L 100.0100 ####[facility] [address] [place], [address] WBC (Bld) [#/Vol] 11.9 10*3/uL High 4.4-11.0 [facility] Comment on above: Order Comment: 109-1 Performed By: #### L 100.0100 ####[facility] [address] [place], [address] Eosinophil percentageOrdered By: Renard Burgos on 04-22-2024 Eosinophils/100 WBC (Bld) 0.4 % 0-5 [facility] Erythrocyte distribution wid th ratioOrdered By: Renard Burgos on 04-22-2024 Erythrocyte distribution width (RBC) [Ratio] 12.6 % 11.6-14.6 [facility] Erythrocyte distribution wid th standard deviationOrdered By: Renard Burgos on 04-22-2024 Erythrocyte distribution width (RBC) [Entitic vol] 43.0 fL 35.1-43.9 [facility] Hematocrit Auto (Bld) [Volum e fraction]Ordered By: Renard Burgos on 04-22-2024 Hematocrit (Bld) [Volume fraction] 44.5 % 40-54 [facility] Hemoglobin measurementOrdere d By: Renard Burgos on 04-22-2024 Hemoglobin (Bld) [Mass/Vol] 14.3 g/dL 13.0-16.5 [facility] Immature granulocytes/100 WB C Auto (Bld)Ordered By: Renard Burgos on 04-22-2024 Immature granulocytes/100 WBC (Bld) 0.300 % 0.0-0.9 [facility] Comment on above: IG% - Immature Granu locytes (promyelocytes, myelocytes and metamyelocytes) > 1% indicates that a LEFT SHIFT is Present. Lymphocytes Auto (Unsp spec) [#/Vol]Ordered By: Renard Burgos on 04-22-2024 Lymphocytes (Bld) [#/Vol] 2.61 10*3/uL 0.83-4.51 [facility] Lymphocytes/100 WBC Auto (Un sp spec)Ordered By: Renard Burgos on 04-22-2024 Lymphocytes/100 WBC (Bld) 22.0 % 19-41 [facility] MCV (mean corpuscular volume ) determinationOrdered By: Renard Burgos on 04-22-2024 MCV (RBC) [Entitic vol] 92.5 fL 80-94 [facility] Mean corpuscular hemoglobin (MCH) determinationOrdered By: Renard Burgos on 04-22-2024 MCH (RBC) [Entitic mass] 29.7 pg 27.0-32.0 [facility] Mean corpuscular hemoglobin concentration (MCHC) determinationOrdered By: Renard Burgos on 04-22-2024 MCHC (RBC) [Mass/Vol] 32.1 g/dL 32-36 [facility] Mean platelet volume determi nationOrdered By: Renard Burgos on 04-22-2024 Platelet mean volume (Bld) [Entitic vol] 11.0 fL 6.2-12.0 [facility] Monocyte percentageOrdered B y: Renard Burgos on 04-22-2024 Monocytes/100 WBC (Bld) 8.3 % 0-10 [facility] Neutrophil percentageOrdered By: Renard Burgos on 04-22-2024 Neutrophils/100 WBC (Bld) 68.5 % 47-70 [facility] Nucleated red blood cell per centageOrdered By: Renard Burgos on 04-22-2024 Nucleated RBC/100 WBC (Bld) [Ratio] 0 % 0-5 [facility] Platelet countOrdered By: Garrick Bhatt on 04-22-2024 Platelets (Bld) [#/Vol] 190 10*3/uL 150-450 [facility] RBC Auto (Bld) [#/Vol]Ordere d By: Renard Burgos on 04-22-2024 RBC (Bld) [#/Vol] 4.81 10*6/uL 4.6-6.2 [facility] White blood cell (WBC) count Ordered By: Renard Burgos on 04-22-2024 WBC (Bld) [#/Vol] 11.9 10*3/uL High 4.4-11.0 [facility] Absolute neutrophil countOrd ered By: Renard Burgos on 04-15-2024 Neutrophils (Bld) [#/Vol] 8.7 10*3/uL High 2.0-7.7 [facility] Basophil percentageOrdered B y: Renard Burgos on 04-15-2024 Basophils/100 WBC (Bld) 0.3 % 0-1 [facility] Bilirubin, totalOrdered By: Renard Burgos on 04-15-2024 Bilirubin [Mass/Vol] 0.30 mg/dL 0.20-1.00 [facility] Comment on above: For patients on eltr ombopag therapy, use of Dimension [place] TBIL is not recommended. Bilirubin.direct [Mass/Vol]O rdered By: Renard Burgos on 04-15-2024 Direct Bilirubin < 0.05 mg/dL 0.00-0.30 [facility] CBC W/Diff, Automatedon 03-31 Absolute Lymph 1.93 X10 3/uL Normal 0.83-4.51 [facility] Comment on above: Order Comment: 109-1 Performed By: #### L 100.0100, L500.3400 ####[facility] [address] [place], [address] Absolute Neut 8.7 X10 3/uL High 2.0-7.7 [facility] Comment on above: Order Comment: 109-1 Performed By: #### L 100.0100, L500.3400 ####[facility] [address] [place], [address] Basophils/100 WBC (Bld) 0.3 % Normal 0-1 [facility] Comment on above: Order Comment: 109-1 Performed By: #### L 100.0100, L500.3400 ####[facility] [address] [place], [address] Eosinophils/100 WBC (Bld) 0.4 % Normal 0-5 [facility] Comment on above: Order Comment: 109-1 Performed By: #### L 100.0100, L500.3400 ####[facility] [address] [place], [address] Erythrocyte distribution width (RBC) [Ratio] 12.8 % Normal 11.6-14.6 [facility] Comment on above: Order Comment: 109-1 Performed By: #### L 100.0100, L500.3400 ####[facility] [address] [place], [address] Hematocrit (Bld) [Volume fraction] 42.5 % Normal 40-54 [facility] Comment on above: Order Comment: 109-1 Performed By: #### L 100.0100, L500.3400 ####[facility] [address] [place], [address] Hemoglobin (Bld) [Mass/Vol] 13.7 g/dL Normal 13.0-16.5 [facility] Comment on above: Order Comment: 109-1 Performed By: #### L 100.0100, L500.3400 ####[facility] [address] [place], [address] IG% 0.400 Normal 0.0-0.9 [facility] Comment on above: Order Comment: 109-1 Result Comment: IG% - Immature Granulocytes (promyelocytes, myelocytes andmetamyelocytes) > 1% indicates that a LEFT SHIFT is Present. Performed By: #### L 100.0100, L500.3400 ####[facility] [address] [place], [address] Lymphocytes/100 WBC (Bld) 16.9 % Low 19-41 [facility] Comment on above: Order Comment: 109-1 Performed By: #### L 100.0100, L500.3400 ####[facility] [address] [place], [address] MCH (RBC) [Entitic mass] 29.5 pg Normal 27.0-32.0 [facility] Comment on above: Order Comment: 109-1 Performed By: #### L 100.0100, L500.3400 ####[facility] [address] [place], [address] MCHC (RBC) [Mass/Vol] 32.2 g/dL Normal 32-36 [facility] Comment on above: Order Comment: 109-1 Performed By: #### L 100.0100, L500.3400 ####[facility] [address] [place], [address] MCV (RBC) [Entitic vol] 91.6 fL Normal 80-94 [facility] Comment on above: Order Comment: 109-1 Performed By: #### L 100.0100, L500.3400 ####[facility] [address] [place], [address] Monocytes/100 WBC (Bld) 6.0 % Normal 0-10 [facility] Comment on above: Order Comment: 109-1 Performed By: #### L 100.0100, L500.3400 ####[facility] [address] [place], [address] Neutrophils/100 WBC (Bld) 76.0 % High 47-70 [facility] Comment on above: Order Comment: 109-1 Performed By: #### L 100.0100, L500.3400 ####[facility] [address] [place], [address] Nucleated RBC (Bld) [#/Vol] 0 10*3/uL Normal 0-5 [facility] Comment on above: Order Comment: 109-1 Performed By: #### L 100.0100, L500.3400 ####[facility] [address] [place], [address] Platelet mean volume (Bld) [Entitic vol] 11.1 fL Normal 6.2-12.0 [facility] Comment on above: Order Comment: 109-1 Performed By: #### L 100.0100, L500.3400 ####[facility] [address] [place], [address] Platelets (Bld) [#/Vol] 197 10*3/uL Normal 150-450 [facility] Comment on above: Order Comment: 109-1 Performed By: #### L 100.0100, L500.3400 ####[facility] [address] [place], [address] RBC (Bld) [#/Vol] 4.64 10*6/uL Normal 4.6-6.2 [facility] Comment on above: Order Comment: 109-1 Performed By: #### L 100.0100, L500.3400 ####[facility] [address] [place], [address] RDW SD 42.5 fl Normal 35.1-43.9 [facility] Comment on above: Order Comment: 109-1 Performed By: #### L 100.0100, L500.3400 ####[facility] [address] [place], [address] WBC (Bld) [#/Vol] 11.4 10*3/uL High 4.4-11.0 [facility] Comment on above: Order Comment: 109-1 Performed By: #### L 100.0100, L500.3400 ####[facility] [address] [place], [address] Eosinophil percentageOrdered By: Renard Burgos on 04-15-2024 Eosinophils/100 WBC (Bld) 0.4 % 0-5 [facility] Erythrocyte distribution wid th ratioOrdered By: Renard Burgos on 04-15-2024 Erythrocyte distribution width (RBC) [Ratio] 12.8 % 11.6-14.6 [facility] Erythrocyte distribution wid th standard deviationOrdered By: Renard Burgos on 04-15-2024 Erythrocyte distribution width (RBC) [Entitic vol] 42.5 fL 35.1-43.9 [facility] Hematocrit Auto (Bld) [Volum e fraction]Ordered By: Renard Burgos on 04-15-2024 Hematocrit (Bld) [Volume fraction] 42.5 % 40-54 [facility] Hemoglobin measurementOrdere d By: Renard Burgos on 04-15-2024 Hemoglobin (Bld) [Mass/Vol] 13.7 g/dL 13.0-16.5 [facility] Immature granulocytes/100 WB C Auto (Bld)Ordered By: Renard Burgos on 04-15-2024 Immature granulocytes/100 WBC (Bld) 0.400 % 0.0-0.9 [facility] Comment on above: IG% - Immature Granu locytes (promyelocytes, myelocytes and metamyelocytes) > 1% indicates that a LEFT SHIFT is Present. Laboratory - Chemistry and C hemistry - challengeOrdered By: Renard Burgos on 04-15-2024 AST [Catalytic activity/Vol] 18 U/L 15-37 [facility] Comment on above: Slight Hemolysis, Re sult may be falsely increased. Liver Profileon 04-15-2024 Albumin [Mass/Vol] 2.9 g/dL Low 3.2-5.0 [facility] Comment on above: Order Comment: 109-1 Performed By: #### L 100.0100, L500.3400 ####[facility] [address] [place], [address] ALK P 126 U/L High 45-117 [facility] Comment on above: Order Comment: 109-1 Performed By: #### L 100.0100, L500.3400 ####[facility] [address] [place], [address] ALT [Catalytic activity/Vol] 21 U/L Normal 16-61 [facility] Comment on above: Order Comment: 109-1 Performed By: #### L 100.0100, L500.3400 ####[facility] [address] [place], [address] AST [Catalytic activity/Vol] 18 U/L Normal 15-37 [facility] Comment on above: Order Comment: 109-1 Result Comment: Slig ht Hemolysis, Result may be falsely increased. Performed By: #### L 100.0100, L500.3400 ####[facility] [address] [place], [address] Bilirubin [Mass/Vol] 0.30 mg/dL Normal 0.20-1.00 [facility] Comment on above: Order Comment: 109-1 Result Comment: For patients on eltrombopag therapy, use of Dimension [place] TBIL is not recommended. Performed By: #### L 100.0100, L500.3400 ####[facility] [address] [place], [address] D BILI < 0.05 Normal 0.00-0.30 [facility] Comment on above: Order Comment: 109-1 Performed By: #### L 100.0100, L500.3400 ####[facility] [address] [place], [address] Globulin (S) [Mass/Vol] 3.0 g/dL Normal 2.2-4.2 [facility] Comment on above: Order Comment: 109-1 Performed By: #### L 100.0100, L500.3400 ####[facility] [address] [place], [address] T PROT 5.9 g/dL Low 6.4-8.2 [facility] Comment on above: Order Comment: 109-1 Performed By: #### L 100.0100, L500.3400 ####[facility] [address] [place], [address] Lymphocytes Auto (Unsp spec) [#/Vol]Ordered By: Renard Burgos on 04-15-2024 Lymphocytes (Bld) [#/Vol] 1.93 10*3/uL 0.83-4.51 [facility] Lymphocytes/100 WBC Auto (Un sp spec)Ordered By: Renard Burgos on 04-15-2024 Lymphocytes/100 WBC (Bld) 16.9 % Low 19-41 [facility] MCV (mean corpuscular volume ) determinationOrdered By: Renard Burgos on 04-15-2024 MCV (RBC) [Entitic vol] 91.6 fL 80-94 [facility] Mean corpuscular hemoglobin (MCH) determinationOrdered By: Renard Burgos on 04-15-2024 MCH (RBC) [Entitic mass] 29.5 pg 27.0-32.0 [facility] Mean corpuscular hemoglobin concentration (MCHC) determinationOrdered By: Renard Burgos on 04-15-2024 MCHC (RBC) [Mass/Vol] 32.2 g/dL 32-36 [facility] Mean platelet volume determi nationOrdered By: Renard Burgos on 04-15-2024 Platelet mean volume (Bld) [Entitic vol] 11.1 fL 6.2-12.0 [facility] Monocyte percentageOrdered B y: Renard Burgos on 04-15-2024 Monocytes/100 WBC (Bld) 6.0 % 0-10 [facility] Neutrophil percentageOrdered By: Renard Burgos on 04-15-2024 Neutrophils/100 WBC (Bld) 76.0 % High 47-70 [facility] Nucleated red blood cell per centageOrdered By: Renard Burgos on 04-15-2024 Nucleated RBC/100 WBC (Bld) [Ratio] 0 % 0-5 [facility] Platelet countOrdered By: Garrick Bhatt on 04-15-2024 Platelets (Bld) [#/Vol] 197 10*3/uL 150-450 [facility] RBC Auto (Bld) [#/Vol]Ordere d By: Renard Burgos on 04-15-2024 RBC (Bld) [#/Vol] 4.64 10*6/uL 4.6-6.2 [facility] Serum globulin measurementOr dered By: Renard Burgos on 04-15-2024 Globulin (S) [Mass/Vol] 3.0 g/dL 2.2-4.2 [facility] Serum or plasma alanine kay otransferase (ALT) measurementOrdered By: Renard Burgos on 04-15-2024 ALT [Catalytic activity/Vol] 21 U/L 16-61 [facility] Serum or plasma albumin gordy urement (mass/volume)Ordered By: Renard Burgos on 04-15-2024 Albumin [Mass/Vol] 2.9 g/dL Low 3.2-5.0 [facility] Serum or plasma alkaline trace sphatase measurementOrdered By: Renard Burgos on 04-15-2024 ALP [Catalytic activity/Vol] 126 U/L High 45-117 [facility] Total proteinOrdered By: Lyubov Burgos on 04-15-2024 Protein [Mass/Vol] 5.9 g/dL Low 6.4-8.2 [facility] White blood cell (WBC) count Ordered By: Renard Burgos on 04-15-2024 WBC (Bld) [#/Vol] 11.4 10*3/uL High 4.4-11.0 [facility] Absolute neutrophil countOrd ered By: Renard Burgos on 04-08-2024 Neutrophils (Bld) [#/Vol] 5.7 10*3/uL 2.0-7.7 [facility] Basophil percentageOrdered B y: Renard Burgos on 04-08-2024 Basophils/100 WBC (Bld) 0.6 % 0-1 [facility] CBC W/Diff, Automatedon 12- Absolute Lymph 2.27 X10 3/uL Normal 0.83-4.51 [facility] Comment on above: Order Comment: 109.1 Performed By: #### L 100.0100 ####[facility] [address] [place], [address] Absolute Neut 5.7 X10 3/uL Normal 2.0-7.7 [facility] Comment on above: Order Comment: 109.1 Performed By: #### L 100.0100 ####[facility] [address] [place], [address] Basophils/100 WBC (Bld) 0.6 % Normal 0-1 [facility] Comment on above: Order Comment: 109.1 Performed By: #### L 100.0100 ####[facility] [address] [place], [address] Eosinophils/100 WBC (Bld) 0.5 % Normal 0-5 [facility] Comment on above: Order Comment: 109.1 Performed By: #### L 100.0100 ####[facility] [address] [place], [address] Erythrocyte distribution width (RBC) [Ratio] 12.6 % Normal 11.6-14.6 [facility] Comment on above: Order Comment: 109.1 Performed By: #### L 100.0100 ####[facility] [address] [place], [address] Hematocrit (Bld) [Volume fraction] 41.2 % Normal 40-54 [facility] Comment on above: Order Comment: 109.1 Performed By: #### L 100.0100 ####[facility] [address] [place], [address] Hemoglobin (Bld) [Mass/Vol] 13.3 g/dL Normal 13.0-16.5 [facility] Comment on above: Order Comment: 109.1 Performed By: #### L 100.0100 ####[facility] [address] [place], [address] IG% 0.200 Normal 0.0-0.9 [facility] Comment on above: Order Comment: 109.1 Result Comment: IG% - Immature Granulocytes (promyelocytes, myelocytes andmetamyelocytes) > 1% indicates that a LEFT SHIFT is Present. Performed By: #### L 100.0100 ####[facility] [address] [place], [address] Lymphocytes/100 WBC (Bld) 26.0 % Normal 19-41 [facility] Comment on above: Order Comment: 109.1 Performed By: #### L 100.0100 ####[facility] [address] [place], [address] MCH (RBC) [Entitic mass] 29.6 pg Normal 27.0-32.0 [facility] Comment on above: Order Comment: 109.1 Performed By: #### L 100.0100 ####[facility] [address] [place], [address] MCHC (RBC) [Mass/Vol] 32.3 g/dL Normal 32-36 [facility] Comment on above: Order Comment: 109.1 Performed By: #### L 100.0100 ####[facility] [address] [place], [address] MCV (RBC) [Entitic vol] 91.8 fL Normal 80-94 [facility] Comment on above: Order Comment: 109.1 Performed By: #### L 100.0100 ####[facility] [address] [place], [address] Monocytes/100 WBC (Bld) 7.8 % Normal 0-10 [facility] Comment on above: Order Comment: 109.1 Performed By: #### L 100.0100 ####[facility] [address] [place], [address] Neutrophils/100 WBC (Bld) 64.9 % Normal 47-70 [facility] Comment on above: Order Comment: 109.1 Performed By: #### L 100.0100 ####[facility] [address] [place], [address] Nucleated RBC (Bld) [#/Vol] 0 10*3/uL Normal 0-5 [facility] Comment on above: Order Comment: 109.1 Performed By: #### L 100.0100 ####[facility] [address] [place], [address] Platelet mean volume (Bld) [Entitic vol] 10.8 fL Normal 6.2-12.0 [facility] Comment on above: Order Comment: 109.1 Performed By: #### L 100.0100 ####[facility] [address] [place], [address] Platelets (Bld) [#/Vol] 208 10*3/uL Normal 150-450 [facility] Comment on above: Order Comment: 109.1 Performed By: #### L 100.0100 ####[facility] [address] [place], [address] RBC (Bld) [#/Vol] 4.49 10*6/uL Low 4.6-6.2 [facility] Comment on above: Order Comment: 109.1 Performed By: #### L 100.0100 ####[facility] [address] [place], [address] RDW SD 42.4 fl Normal 35.1-43.9 [facility] Comment on above: Order Comment: 109.1 Performed By: #### L 100.0100 ####[facility] [address] [place], [address] WBC (Bld) [#/Vol] 8.7 10*3/uL Normal 4.4-11.0 [facility] Comment on above: Order Comment: 109.1 Performed By: #### L 100.0100 ####[facility] [address] [facility] [place], [address] Eosinophil percentageOrdered By: Renard Burgos on 04-08-2024 Eosinophils/100 WBC (Bld) 0.5 % 0-5 [facility] Erythrocyte distribution wid th ratioOrdered By: Renard Burgos on 04-08-2024 Erythrocyte distribution width (RBC) [Ratio] 12.6 % 11.6-14.6 [facility] Erythrocyte distribution wid th standard deviationOrdered By: Renard Burgos on 04-08-2024 Erythrocyte distribution width (RBC) [Entitic vol] 42.4 fL 35.1-43.9 [facility] Hematocrit Auto (Bld) [Volum e fraction]Ordered By: Renard Burgos on 04-08-2024 Hematocrit (Bld) [Volume fraction] 41.2 % 40-54 [facility] Hemoglobin measurementOrdere d By: Renard Burgos on 04-08-2024 Hemoglobin (Bld) [Mass/Vol] 13.3 g/dL 13.0-16.5 [facility] Immature granulocytes/100 WB C Auto (Bld)Ordered By: Renard Burgos on 04-08-2024 Immature granulocytes/100 WBC (Bld) 0.200 % 0.0-0.9 [facility] Comment on above: IG% - Immature Granu locytes (promyelocytes, myelocytes and metamyelocytes) > 1% indicates that a LEFT SHIFT is Present. Lymphocytes Auto (Unsp spec) [#/Vol]Ordered By: Renard Burgos on 04-08-2024 Lymphocytes (Bld) [#/Vol] 2.27 10*3/uL 0.83-4.51 [facility] Lymphocytes/100 WBC Auto (Un sp spec)Ordered By: Renard Burgos on 04-08-2024 Lymphocytes/100 WBC (Bld) 26.0 % 19-41 [facility] MCV (mean corpuscular volume ) determinationOrdered By: Renard Burgos on 04-08-2024 MCV (RBC) [Entitic vol] 91.8 fL 80-94 [facility] Mean corpuscular hemoglobin (MCH) determinationOrdered By: Renard Burgos on 04-08-2024 MCH (RBC) [Entitic mass] 29.6 pg 27.0-32.0 [facility] Mean corpuscular hemoglobin concentration (MCHC) determinationOrdered By: Renard Burgos on 04-08-2024 MCHC (RBC) [Mass/Vol] 32.3 g/dL 32-36 [facility] Mean platelet volume determi nationOrdered By: Renard Burgos on 04-08-2024 Platelet mean volume (Bld) [Entitic vol] 10.8 fL 6.2-12.0 [facility] Monocyte percentageOrdered B y: Renard Burgos on 04-08-2024 Monocytes/100 WBC (Bld) 7.8 % 0-10 [facility] Neutrophil percentageOrdered By: Renard Burgos on 04-08-2024 Neutrophils/100 WBC (Bld) 64.9 % 47-70 [facility] Nucleated red blood cell per centageOrdered By: Renard Burgos on 04-08-2024 Nucleated RBC/100 WBC (Bld) [Ratio] 0 % 0-5 [facility] Platelet countOrdered By: Garrick Bhatt on 04-08-2024 Platelets (Bld) [#/Vol] 208 10*3/uL 150-450 [facility] RBC Auto (Bld) [#/Vol]Ordere d By: Renard Burgos on 04-08-2024 RBC (Bld) [#/Vol] 4.49 10*6/uL Low 4.6-6.2 [facility] White blood cell (WBC) count Ordered By: Renard Burgos on 04-08-2024 WBC (Bld) [#/Vol] 8.7 10*3/uL 4.4-11.0 [facility] Absolute neutrophil countOrd ered By: eRnard Burgos on 04-01-2024 Neutrophils (Bld) [#/Vol] 7.1 10*3/uL 2.0-7.7 [facility] Basophil percentageOrdered B y: Renard Burgos on 04-01-2024 Basophils/100 WBC (Bld) 0.4 % 0-1 [facility] CBC W/Diff, Automatedon 12--2023 Absolute Lymph 1.97 X10 3/uL Normal 0.83-4.51 [facility] Comment on above: Order Comment: 109-1 Performed By: #### L 100.0100 ####[facility] [address] [place], [address] Absolute Neut 7.1 X10 3/uL Normal 2.0-7.7 [facility] Comment on above: Order Comment: 109-1 Performed By: #### L 100.0100 ####[facility] [address] [place], [address] Basophils/100 WBC (Bld) 0.4 % Normal 0-1 [facility] Comment on above: Order Comment: 109-1 Performed By: #### L 100.0100 ####[facility] [address] [place], [address] Eosinophils/100 WBC (Bld) 0.4 % Normal 0-5 [facility] Comment on above: Order Comment: 109-1 Performed By: #### L 100.0100 ####[facility] [address] [place], [address] Erythrocyte distribution width (RBC) [Ratio] 12.6 % Normal 11.6-14.6 [facility] Comment on above: Order Comment: 109-1 Performed By: #### L 100.0100 ####[facility] [address] [place], [address] Hematocrit (Bld) [Volume fraction] 41.7 % Normal 40-54 [facility] Comment on above: Order Comment: 109-1 Performed By: #### L 100.0100 ####[facility] [address] [place], [address] Hemoglobin (Bld) [Mass/Vol] 13.6 g/dL Normal 13.0-16.5 [facility] Comment on above: Order Comment: 109-1 Performed By: #### L 100.0100 ####[facility] [address] [place], [address] IG% 0.300 Normal 0.0-0.9 [facility] Comment on above: Order Comment: 109-1 Result Comment: IG% - Immature Granulocytes (promyelocytes, myelocytes andmetamyelocytes) > 1% indicates that a LEFT SHIFT is Present. Performed By: #### L 100.0100 ####[facility] [address] [place], [address] Lymphocytes/100 WBC (Bld) 20.0 % Normal 19-41 [facility] Comment on above: Order Comment: 109-1 Performed By: #### L 100.0100 ####[facility] [address] [place], [address] MCH (RBC) [Entitic mass] 29.7 pg Normal 27.0-32.0 [facility] Comment on above: Order Comment: 109-1 Performed By: #### L 100.0100 ####[facility] [address] [place], [address] MCHC (RBC) [Mass/Vol] 32.6 g/dL Normal 32-36 [facility] Comment on above: Order Comment: 109-1 Performed By: #### L 100.0100 ####[facility] [address] [place], [address] MCV (RBC) [Entitic vol] 91.0 fL Normal 80-94 [facility] Comment on above: Order Comment: 109-1 Performed By: #### L 100.0100 ####[facility] [address] [place], [address] Monocytes/100 WBC (Bld) 7.1 % Normal 0-10 [facility] Comment on above: Order Comment: 109-1 Performed By: #### L 100.0100 ####[facility] [address] [place], [address] Neutrophils/100 WBC (Bld) 71.8 % High 47-70 [facility] Comment on above: Order Comment: 109-1 Performed By: #### L 100.0100 ####[facility] [address] [place], [address] Nucleated RBC (Bld) [#/Vol] 0 10*3/uL Normal 0-5 [facility] Comment on above: Order Comment: 109-1 Performed By: #### L 100.0100 ####[facility] [address] [place], [address] Platelet mean volume (Bld) [Entitic vol] 11.3 fL Normal 6.2-12.0 [facility] Comment on above: Order Comment: 109-1 Performed By: #### L 100.0100 ####[facility] [address] [place], [address] Platelets (Bld) [#/Vol] 195 10*3/uL Normal 150-450 [facility] Comment on above: Order Comment: 109-1 Performed By: #### L 100.0100 ####[facility] [address] [place], [address] RBC (Bld) [#/Vol] 4.58 10*6/uL Low 4.6-6.2 [facility] Comment on above: Order Comment: 109-1 Performed By: #### L 100.0100 ####[facility] [address] [place], [address] RDW SD 41.2 fl Normal 35.1-43.9 [facility] Comment on above: Order Comment: 109-1 Performed By: #### L 100.0100 ####[facility] [address] [place], [address] WBC (Bld) [#/Vol] 9.8 10*3/uL Normal 4.4-11.0 [facility] Comment on above: Order Comment: 109-1 Performed By: #### L 100.0100 ####[facility] [address] [place], [address] Eosinophil percentageOrdered By: Renard Burgos on 04-01-2024 Eosinophils/100 WBC (Bld) 0.4 % 0-5 [facility] Erythrocyte distribution wid th ratioOrdered By: Renard Burgos on 04-01-2024 Erythrocyte distribution width (RBC) [Ratio] 12.6 % 11.6-14.6 [facility] Erythrocyte distribution wid th standard deviationOrdered By: Renard Burgos on 04-01-2024 Erythrocyte distribution width (RBC) [Entitic vol] 41.2 fL 35.1-43.9 [facility] Hematocrit Auto (Bld) [Volum e fraction]Ordered By: Renard Burgos on 04-01-2024 Hematocrit (Bld) [Volume fraction] 41.7 % 40-54 [facility] Hemoglobin measurementOrdere d By: Renard Burgos on 04-01-2024 Hemoglobin (Bld) [Mass/Vol] 13.6 g/dL 13.0-16.5 [facility] Immature granulocytes/100 WB C Auto (Bld)Ordered By: Renard Burgos on 04-01-2024 Immature granulocytes/100 WBC (Bld) 0.300 % 0.0-0.9 [facility] Comment on above: IG% - Immature Granu locytes (promyelocytes, myelocytes and metamyelocytes) > 1% indicates that a LEFT SHIFT is Present. Lymphocytes Auto (Unsp spec) [#/Vol]Ordered By: Renard Burgos on 04-01-2024 Lymphocytes (Bld) [#/Vol] 1.97 10*3/uL 0.83-4.51 [facility] Lymphocytes/100 WBC Auto (Un sp spec)Ordered By: Renard Burgos on 04-01-2024 Lymphocytes/100 WBC (Bld) 20.0 % 19-41 [facility] MCV (mean corpuscular volume ) determinationOrdered By: Renard Burgos on 04-01-2024 MCV (RBC) [Entitic vol] 91.0 fL 80-94 [facility] Mean corpuscular hemoglobin (MCH) determinationOrdered By: Renard Burgos on 04-01-2024 MCH (RBC) [Entitic mass] 29.7 pg 27.0-32.0 [facility] Mean corpuscular hemoglobin concentration (MCHC) determinationOrdered By: Renard Burgos on 04-01-2024 MCHC (RBC) [Mass/Vol] 32.6 g/dL 32-36 [facility] Mean platelet volume determi nationOrdered By: Renard Burgos on 04-01-2024 Platelet mean volume (Bld) [Entitic vol] 11.3 fL 6.2-12.0 [facility] Monocyte percentageOrdered B y: Renard Burgos on 04-01-2024 Monocytes/100 WBC (Bld) 7.1 % 0-10 [facility] Neutrophil percentageOrdered By: Renard Burgos on 04-01-2024 Neutrophils/100 WBC (Bld) 71.8 % High 47-70 [facility] Nucleated red blood cell per centageOrdered By: Renard Burgos on 04-01-2024 Nucleated RBC/100 WBC (Bld) [Ratio] 0 % 0-5 [facility] Platelet countOrdered By: Garrick Bhatt on 04-01-2024 Platelets (Bld) [#/Vol] 195 10*3/uL 150-450 [facility] RBC Auto (Bld) [#/Vol]Ordere d By: Renard Burgos on 04-01-2024 RBC (Bld) [#/Vol] 4.58 10*6/uL Low 4.6-6.2 [facility] White blood cell (WBC) count Ordered By: Renard Burgos on 04-01-2024 WBC (Bld) [#/Vol] 9.8 10*3/uL 4.4-11.0 [facility] Absolute neutrophil countOrd ered By: Renard Burgos on 03-25-2024 Neutrophils (Bld) [#/Vol] 5.4 10*3/uL 2.0-7.7 [facility] Basophil percentageOrdered B y: Renard Burgos on 03-25-2024 Basophils/100 WBC (Bld) 0.5 % 0-1 [facility] CBC W/Diff, Automatedon 03-02 Absolute Lymph 2.14 X10 3/uL Normal 0.83-4.51 [facility] Comment on above: Order Comment: 109-1 Performed By: #### L 100.0100 ####[facility] [address] [place], [address] Absolute Neut 5.4 X10 3/uL Normal 2.0-7.7 [facility] Comment on above: Order Comment: 109-1 Performed By: #### L 100.0100 ####[facility] [address] [place], [address] Basophils/100 WBC (Bld) 0.5 % Normal 0-1 [facility] Comment on above: Order Comment: 109-1 Performed By: #### L 100.0100 ####[facility] [address] [place], [address] Eosinophils/100 WBC (Bld) 0.7 % Normal 0-5 [facility] Comment on above: Order Comment: 109-1 Performed By: #### L 100.0100 ####[facility] [address] [place], [address] Erythrocyte distribution width (RBC) [Ratio] 12.7 % Normal 11.6-14.6 [facility] Comment on above: Order Comment: 109-1 Performed By: #### L 100.0100 ####[facility] [address] [place], [address] Hematocrit (Bld) [Volume fraction] 42.3 % Normal 40-54 [facility] Comment on above: Order Comment: 109-1 Performed By: #### L 100.0100 ####[facility] [address] [place], [address] Hemoglobin (Bld) [Mass/Vol] 13.7 g/dL Normal 13.0-16.5 [facility] Comment on above: Order Comment: 109-1 Performed By: #### L 100.0100 ####[facility] [address] [place], [address] IG% 0.500 Normal 0.0-0.9 [facility] Comment on above: Order Comment: 109-1 Result Comment: IG% - Immature Granulocytes (promyelocytes, myelocytes andmetamyelocytes) > 1% indicates that a LEFT SHIFT is Present. Performed By: #### L 100.0100 ####[facility] [address] [place], [address] Lymphocytes/100 WBC (Bld) 25.8 % Normal 19-41 [facility] Comment on above: Order Comment: 109-1 Performed By: #### L 100.0100 ####[facility] [address] [place], [address] MCH (RBC) [Entitic mass] 29.2 pg Normal 27.0-32.0 [facility] Comment on above: Order Comment: 109-1 Performed By: #### L 100.0100 ####[facility] [address] [place], [address] MCHC (RBC) [Mass/Vol] 32.4 g/dL Normal 32-36 [facility] Comment on above: Order Comment: 109-1 Performed By: #### L 100.0100 ####[facility] [address] [place], [address] MCV (RBC) [Entitic vol] 90.2 fL Normal 80-94 [facility] Comment on above: Order Comment: 109-1 Performed By: #### L 100.0100 ####[facility] [address] [place], [address] Monocytes/100 WBC (Bld) 8.0 % Normal 0-10 [facility] Comment on above: Order Comment: 109-1 Performed By: #### L 100.0100 ####[facility] [address] [place], [address] Neutrophils/100 WBC (Bld) 64.5 % Normal 47-70 [facility] Comment on above: Order Comment: 109-1 Performed By: #### L 100.0100 ####[facility] [address] [place], [address] Nucleated RBC (Bld) [#/Vol] 0 10*3/uL Normal 0-5 [facility] Comment on above: Order Comment: 109-1 Performed By: #### L 100.0100 ####[facility] [address] [place], [address] Platelet mean volume (Bld) [Entitic vol] 11.2 fL Normal 6.2-12.0 [facility] Comment on above: Order Comment: 109-1 Performed By: #### L 100.0100 ####[facility] [address] [place], [address] Platelets (Bld) [#/Vol] 204 10*3/uL Normal 150-450 [facility] Comment on above: Order Comment: 109-1 Performed By: #### L 100.0100 ####[facility] [address] [place], [address] RBC (Bld) [#/Vol] 4.69 10*6/uL Normal 4.6-6.2 [facility] Comment on above: Order Comment: 109-1 Performed By: #### L 100.0100 ####[facility] [address] [place], [address] RDW SD 41.8 fl Normal 35.1-43.9 [facility] Comment on above: Order Comment: 109-1 Performed By: #### L 100.0100 ####[facility] [address] [place], [address] WBC (Bld) [#/Vol] 8.3 10*3/uL Normal 4.4-11.0 [facility] Comment on above: Order Comment: 109-1 Performed By: #### L 100.0100 ####[facility] [address] [place], [address] Eosinophil percentageOrdered By: Renard Burgos on 03-25-2024 Eosinophils/100 WBC (Bld) 0.7 % 0-5 [facility] Erythrocyte distribution wid th ratioOrdered By: Renard Burgos on 03-25-2024 Erythrocyte distribution width (RBC) [Ratio] 12.7 % 11.6-14.6 [facility] Erythrocyte distribution wid th standard deviationOrdered By: Renard Burgos on 03-25-2024 Erythrocyte distribution width (RBC) [Entitic vol] 41.8 fL 35.1-43.9 [facility] Hematocrit Auto (Bld) [Volum e fraction]Ordered By: Renard Burgos on 03-25-2024 Hematocrit (Bld) [Volume fraction] 42.3 % 40-54 [facility] Hemoglobin measurementOrdere d By: Renard Burgos on 03-25-2024 Hemoglobin (Bld) [Mass/Vol] 13.7 g/dL 13.0-16.5 [facility] Immature granulocytes/100 WB C Auto (Bld)Ordered By: Renard Burgos on 03-25-2024 Immature granulocytes/100 WBC (Bld) 0.500 % 0.0-0.9 [facility] Comment on above: IG% - Immature Granu locytes (promyelocytes, myelocytes and metamyelocytes) > 1% indicates that a LEFT SHIFT is Present. Lymphocytes Auto (Unsp spec) [#/Vol]Ordered By: Renard Burgos on 03-25-2024 Lymphocytes (Bld) [#/Vol] 2.14 10*3/uL 0.83-4.51 [facility] Lymphocytes/100 WBC Auto (Un sp spec)Ordered By: Renard Burgos on 03-25-2024 Lymphocytes/100 WBC (Bld) 25.8 % 19-41 [facility] MCV (mean corpuscular volume ) determinationOrdered By: Renard Burgos on 03-25-2024 MCV (RBC) [Entitic vol] 90.2 fL 80-94 [facility] Mean corpuscular hemoglobin (MCH) determinationOrdered By: eRnard Burgos on 03-25-2024 MCH (RBC) [Entitic mass] 29.2 pg 27.0-32.0 [facility] Mean corpuscular hemoglobin concentration (MCHC) determinationOrdered By: Renard Burgos on 03-25-2024 MCHC (RBC) [Mass/Vol] 32.4 g/dL 32-36 [facility] Mean platelet volume determi nationOrdered By: Renard Burgos on 03-25-2024 Platelet mean volume (Bld) [Entitic vol] 11.2 fL 6.2-12.0 [facility] Monocyte percentageOrdered B y: Renard Burgos on 03-25-2024 Monocytes/100 WBC (Bld) 8.0 % 0-10 [facility] Neutrophil percentageOrdered By: Renard Burgos on 03-25-2024 Neutrophils/100 WBC (Bld) 64.5 % 47-70 [facility] Nucleated red blood cell per centageOrdered By: Renard Burgos on 03-25-2024 Nucleated RBC/100 WBC (Bld) [Ratio] 0 % 0-5 [facility] Platelet countOrdered By: Garrick Bhatt on 03-25-2024 Platelets (Bld) [#/Vol] 204 10*3/uL 150-450 [facility] RBC Auto (Bld) [#/Vol]Ordere d By: Renard Burgos on 11-25-2024 RBC (Bld) [#/Vol] 4.69 10*6/uL 4.6-6.2 [facility] White blood cell (WBC) count Ordered By: Renard Burgos on 03-25-2024 WBC (Bld) [#/Vol] 8.3 10*3/uL 4.4-11.0 [facility] Absolute neutrophil countOrd ered By: Renard Burgos on 03-18-2024 Neutrophils (Bld) [#/Vol] 5.2 10*3/uL 2.0-7.7 [facility] Basophil percentageOrdered B y: Renard Burgos on 03-18-2024 Basophils/100 WBC (Bld) 0.6 % 0-1 [facility] CBC W/Diff, Automatedon 03-01 Absolute Lymph 2.23 X10 3/uL Normal 0.83-4.51 [facility] Comment on above: Order Comment: 109.1 Performed By: #### L 100.0100 ####[facility] [address] [place], [address] Absolute Neut 5.2 X10 3/uL Normal 2.0-7.7 [facility] Comment on above: Order Comment: 109.1 Performed By: #### L 100.0100 ####[facility] [address] [place], [address] Basophils/100 WBC (Bld) 0.6 % Normal 0-1 [facility] Comment on above: Order Comment: 109.1 Performed By: #### L 100.0100 ####[facility] [address] [place], [address] Eosinophils/100 WBC (Bld) 0.7 % Normal 0-5 [facility] Comment on above: Order Comment: 109.1 Performed By: #### L 100.0100 ####[facility] [address] [place], [address] Erythrocyte distribution width (RBC) [Ratio] 12.8 % Normal 11.6-14.6 [facility] Comment on above: Order Comment: 109.1 Performed By: #### L 100.0100 ####[facility] [address] [place], [address] Hematocrit (Bld) [Volume fraction] 42.0 % Normal 40-54 [facility] Comment on above: Order Comment: 109.1 Performed By: #### L 100.0100 ####[facility] [address] [place], [address] Hemoglobin (Bld) [Mass/Vol] 13.6 g/dL Normal 13.0-16.5 [facility] Comment on above: Order Comment: 109.1 Performed By: #### L 100.0100 ####[facility] [address] [place], [address] IG% 0.500 Normal 0.0-0.9 [facility] Comment on above: Order Comment: 109.1 Result Comment: IG% - Immature Granulocytes (promyelocytes, myelocytes andmetamyelocytes) > 1% indicates that a LEFT SHIFT is Present. Performed By: #### L 100.0100 ####[facility] [address] [place], [address] Lymphocytes/100 WBC (Bld) 27.0 % Normal 19-41 [facility] Comment on above: Order Comment: 109.1 Performed By: #### L 100.0100 ####[facility] [address] [place], [address] MCH (RBC) [Entitic mass] 29.5 pg Normal 27.0-32.0 [facility] Comment on above: Order Comment: 109.1 Performed By: #### L 100.0100 ####[facility] [address] [place], [address] MCHC (RBC) [Mass/Vol] 32.4 g/dL Normal 32-36 [facility] Comment on above: Order Comment: 109.1 Performed By: #### L 100.0100 ####[facility] [address] [place], [address] MCV (RBC) [Entitic vol] 91.1 fL Normal 80-94 [facility] Comment on above: Order Comment: 109.1 Performed By: #### L 100.0100 ####[facility] [address] [place], [address] Monocytes/100 WBC (Bld) 8.5 % Normal 0-10 [facility] Comment on above: Order Comment: 109.1 Performed By: #### L 100.0100 ####[facility] [address] [place], [address] Neutrophils/100 WBC (Bld) 62.7 % Normal 47-70 [facility] Comment on above: Order Comment: 109.1 Performed By: #### L 100.0100 ####[facility] [address] [place], [address] Nucleated RBC (Bld) [#/Vol] 0 10*3/uL Normal 0-5 [facility] Comment on above: Order Comment: 109.1 Performed By: #### L 100.0100 ####[facility] [address] [place], [address] Platelet mean volume (Bld) [Entitic vol] 10.8 fL Normal 6.2-12.0 [facility] Comment on above: Order Comment: 109.1 Performed By: #### L 100.0100 ####[facility] [address] [place], [address] Platelets (Bld) [#/Vol] 211 10*3/uL Normal 150-450 [facility] Comment on above: Order Comment: 109.1 Performed By: #### L 100.0100 ####[facility] [address] [place], [address] RBC (Bld) [#/Vol] 4.61 10*6/uL Normal 4.6-6.2 [facility] Comment on above: Order Comment: 109.1 Performed By: #### L 100.0100 ####[facility] [address] [place], [address] RDW SD 42.3 fl Normal 35.1-43.9 [facility] Comment on above: Order Comment: 109.1 Performed By: #### L 100.0100 ####[facility] [address] [place], [address] WBC (Bld) [#/Vol] 8.3 10*3/uL Normal 4.4-11.0 [facility] Comment on above: Order Comment: 109.1 Performed By: #### L 100.0100 ####[facility] [address] [place], [address] Eosinophil percentageOrdered By: Renard Burgos on 03-18-2024 Eosinophils/100 WBC (Bld) 0.7 % 0-5 [facility] Erythrocyte distribution wid th ratioOrdered By: Renard Burgos on 03-18-2024 Erythrocyte distribution width (RBC) [Ratio] 12.8 % 11.6-14.6 [facility] Erythrocyte distribution wid th standard deviationOrdered By: Renard Burgos on 03-18-2024 Erythrocyte distribution width (RBC) [Entitic vol] 42.3 fL 35.1-43.9 [facility] Hematocrit Auto (Bld) [Volum e fraction]Ordered By: Renard Burgos on 03-18-2024 Hematocrit (Bld) [Volume fraction] 42.0 % 40-54 [facility] Hemoglobin measurementOrdere d By: Renard Burgos on 03-18-2024 Hemoglobin (Bld) [Mass/Vol] 13.6 g/dL 13.0-16.5 [facility] Immature granulocytes/100 WB C Auto (Bld)Ordered By: Renard Burgos on 03-18-2024 Immature granulocytes/100 WBC (Bld) 0.500 % 0.0-0.9 [facility] Comment on above: IG% - Immature Granu locytes (promyelocytes, myelocytes and metamyelocytes) > 1% indicates that a LEFT SHIFT is Present. Lymphocytes Auto (Unsp spec) [#/Vol]Ordered By: Renard Burgos on 03-18-2024 Lymphocytes (Bld) [#/Vol] 2.23 10*3/uL 0.83-4.51 [facility] Lymphocytes/100 WBC Auto (Un sp spec)Ordered By: Renard Burgos on 03-18-2024 Lymphocytes/100 WBC (Bld) 27.0 % 19-41 [facility] MCV (mean corpuscular volume ) determinationOrdered By: Renard Burgos on 03-18-2024 MCV (RBC) [Entitic vol] 91.1 fL 80-94 [facility] Mean corpuscular hemoglobin (MCH) determinationOrdered By: Renard Burgos on 03-18-2024 MCH (RBC) [Entitic mass] 29.5 pg 27.0-32.0 [facility] Mean corpuscular hemoglobin concentration (MCHC) determinationOrdered By: Renard Burgos on 03-18-2024 MCHC (RBC) [Mass/Vol] 32.4 g/dL 32-36 [facility] Mean platelet volume determi nationOrdered By: Renard Burgos on 03-18-2024 Platelet mean volume (Bld) [Entitic vol] 10.8 fL 6.2-12.0 [facility] Monocyte percentageOrdered B y: Renard Burgos on 03-18-2024 Monocytes/100 WBC (Bld) 8.5 % 0-10 [facility] Neutrophil percentageOrdered By: Renard Burgos on 03-18-2024 Neutrophils/100 WBC (Bld) 62.7 % 47-70 [facility] Nucleated red blood cell per centageOrdered By: Renard Burgos on 03-18-2024 Nucleated RBC/100 WBC (Bld) [Ratio] 0 % 0-5 [facility] Platelet countOrdered By: Garrick Bhatt on 03-18-2024 Platelets (Bld) [#/Vol] 211 10*3/uL 150-450 [facility] RBC Auto (Bld) [#/Vol]Ordere d By: Renard Burgos on 03-18-2024 RBC (Bld) [#/Vol] 4.61 10*6/uL 4.6-6.2 [facility] White blood cell (WBC) count Ordered By: Renard Burgos on 03-18-2024 WBC (Bld) [#/Vol] 8.3 10*3/uL 4.4-11.0 [facility] Absolute neutrophil countOrd ered By: Renard Burgos on 03-11-2024 Neutrophils (Bld) [#/Vol] 6.2 10*3/uL 2.0-7.7 [facility] Automated blood erythrocyte countOrdered By: Renard Burgos on 03-11-2024 RBC (Bld) [#/Vol] 4.54 10*6/uL Low 4.6-6.2 [facility] Comment on above: Order Comment: 109.1 Performed By: #### L 100.0100 ####[facility] [address] [place], [place], [phone] Automated blood hematocrit ( percentage)Ordered By: Renard Burgos on 03-11-2024 Hematocrit (Bld) [Volume fraction] 41.5 % Normal 40-54 [facility] Comment on above: Order Comment: 109.1 Performed By: #### L 100.0100 ####[facility] [address] [place], [address] Automated lymphocyte count a s percentage of total leukocytesOrdered By: Renard Burgos on 03-11-2024 Lymphocytes/100 WBC (Bld) 25.6 % Normal 19-41 [facility] Comment on above: Order Comment: 109.1 Performed By: #### L 100.0100 ####[facility] [address] [place], [address] Basophil percentageOrdered B y: Renard Burgos on 03-11-2024 Basophils/100 WBC (Bld) 0.5 % Normal 0-1 [facility] Comment on above: Order Comment: 109.1 Performed By: #### L 100.0100 ####[facility] [address] [place], [address] CBC W/Diff, Automatedon 03-01 Absolute Lymph 2.50 X10 3/uL Normal 0.83-4.51 [facility] Comment on above: Order Comment: 109.1 Performed By: #### L 100.0100 ####[facility] [address] [place], [address] Absolute Neut 6.2 X10 3/uL Normal 2.0-7.7 [facility] Comment on above: Order Comment: 109.1 Performed By: #### L 100.0100 ####[facility] [address] [place], [address] IG% 0.500 Normal 0.0-0.9 [facility] Comment on above: Order Comment: 109.1 Result Comment: IG% - Immature Granulocytes (promyelocytes, myelocytes andmetamyelocytes) > 1% indicates that a LEFT SHIFT is Present. Performed By: #### L 100.0100 ####[facility] [address] [place], [address] Nucleated RBC (Bld) [#/Vol] 0 10*3/uL Normal 0-5 [facility] Comment on above: Order Comment: 109.1 Performed By: #### L 100.0100 ####[facility] [address] [place], [address] RDW SD 41.5 fl Normal 35.1-43.9 [facility] Comment on above: Order Comment: 109.1 Performed By: #### L 100.0100 ####[facility] [address] [place], [address] Eosinophil percentageOrdered By: Renard Burgos on 03-11-2024 Eosinophils/100 WBC (Bld) 0.6 % Normal 0-5 [facility] Comment on above: Order Comment: 109.1 Performed By: #### L 100.0100 ####[facility] [address] [place], [place], [id number] Erythrocyte distribution wid th ratioOrdered By: Renard Burgos on 03-11-2024 Erythrocyte distribution width (RBC) [Ratio] 12.7 % Normal 11.6-14.6 [facility] Comment on above: Order Comment: 109.1 Performed By: #### L 100.0100 ####[facility] [address] [place], [place], [id number] Erythrocyte distribution wid th standard deviationOrdered By: Renard Burgos on 03-11-2024 Erythrocyte distribution width (RBC) [Entitic vol] 41.5 fL 35.1-43.9 [facility] Hemoglobin measurementOrdere d By: Renard Burgos on 03-11-2024 Hemoglobin (Bld) [Mass/Vol] 13.8 g/dL Normal 13.0-16.5 [facility] Comment on above: Order Comment: 109.1 Performed By: #### L 100.0100 ####[facility] [address] [place], [place], [id number] Immature granulocytes/100 WB C Auto (Bld)Ordered By: Renard Burgos on 03-11-2024 Immature granulocytes/100 WBC (Bld) 0.500 % 0.0-0.9 [facility] Comment on above: IG% - Immature Granu locytes (promyelocytes, myelocytes and metamyelocytes) > 1% indicates that a LEFT SHIFT is Present. Lymphocytes Auto (Unsp spec) [#/Vol]Ordered By: Renard Burgos on 03-11-2024 Lymphocytes (Bld) [#/Vol] 2.50 10*3/uL 0.83-4.51 [facility] MCV (mean corpuscular volume ) determinationOrdered By: Renard Burgos on 03-11-2024 MCV (RBC) [Entitic vol] 91.4 fL Normal 80-94 [facility] Comment on above: Order Comment: 109.1 Performed By: #### L 100.0100 ####[facility] [address] [place], [address] Mean corpuscular hemoglobin (MCH) determinationOrdered By: Renard Burgos on 03-11-2024 MCH (RBC) [Entitic mass] 30.4 pg Normal 27.0-32.0 [facility] Comment on above: Order Comment: 109.1 Performed By: #### L 100.0100 ####[facility] [address] [place], [address] Mean corpuscular hemoglobin concentration (MCHC) determinationOrdered By: Renard Burgos on 03-11-2024 MCHC (RBC) [Mass/Vol] 33.3 g/dL Normal 32-36 [facility] Comment on above: Order Comment: 109.1 Performed By: #### L 100.0100 ####[facility] [address] [place], [place], [phone] Mean platelet volume determi nationOrdered By: Renard Burgos on 03-11-2024 Platelet mean volume (Bld) [Entitic vol] 11.0 fL Normal 6.2-12.0 [facility] Comment on above: Order Comment: 109.1 Performed By: #### L 100.0100 ####[facility] [address] [place], [address] Monocyte percentageOrdered B y: Renard Burgos on 03-11-2024 Monocytes/100 WBC (Bld) 9.0 % Normal 0-10 [facility] Comment on above: Order Comment: 109.1 Performed By: #### L 100.0100 ####[facility] [address] [place], [address] Neutrophil percentageOrdered By: Renard Burgos on 03-11-2024 Neutrophils/100 WBC (Bld) 63.8 % Normal 47-70 [facility] Comment on above: Order Comment: 109.1 Performed By: #### L 100.0100 ####[facility] [address] [place], [address] Nucleated red blood cell per centageOrdered By: Renard Burgos on 03-11-2024 Nucleated RBC/100 WBC (Bld) [Ratio] 0 % 0-5 [facility] Platelet countOrdered By: Garrick Bhatt on 03-11-2024 Platelets (Bld) [#/Vol] 220 10*3/uL Normal 150-450 [facility] Comment on above: Order Comment: 109.1 Performed By: #### L 100.0100 ####[facility] [address] [place], [address] White blood cell (WBC) count Ordered By: Renard Burgos on 03-11-2024 WBC (Bld) [#/Vol] 9.8 10*3/uL Normal 4.4-11.0 [facility] Comment on above: Order Comment: 109.1 Performed By: #### L 100.0100 ####[facility] [address] [place], [address] CBC W/Diff, Automatedon 11-0 -2023 Absolute Lymph 1.99 X10 3/uL Normal 0.83-4.51 [facility] Comment on above: Order Comment: 109.1 Performed By: #### L 100.0100 ####[facility] [address] [place], [address] Absolute Neut 5.3 X10 3/uL Normal 2.0-7.7 [facility] Comment on above: Order Comment: 109.1 Performed By: #### L 100.0100 ####[facility] [address] [place], [address] Basophils/100 WBC (Bld) 0.6 % Normal 0-1 [facility] Comment on above: Order Comment: 109.1 Performed By: #### L 100.0100 ####[facility] [address] [place], [address] Eosinophils/100 WBC (Bld) 0.7 % Normal 0-5 [facility] Comment on above: Order Comment: 109.1 Performed By: #### L 100.0100 ####[facility] [address] [place], [address] Erythrocyte distribution width (RBC) [Ratio] 12.7 % Normal 11.6-14.6 [facility] Comment on above: Order Comment: 109.1 Performed By: #### L 100.0100 ####[facility] [address] [place], [address] Hematocrit (Bld) [Volume fraction] 42.1 % Normal 40-54 [facility] Comment on above: Order Comment: 109.1 Performed By: #### L 100.0100 ####[facility] [address] [place], [address] Hemoglobin (Bld) [Mass/Vol] 14.0 g/dL Normal 13.0-16.5 [facility] Comment on above: Order Comment: 109.1 Performed By: #### L 100.0100 ####[facility] [address] [place], [address] IG% 0.400 Normal 0.0-0.9 [facility] Comment on above: Order Comment: 109.1 Result Comment: IG% - Immature Granulocytes (promyelocytes, myelocytes andmetamyelocytes) > 1% indicates that a LEFT SHIFT is Present. Performed By: #### L 100.0100 ####[facility] [address] [place], [address] Lymphocytes/100 WBC (Bld) 24.5 % Normal 19-41 [facility] Comment on above: Order Comment: 109.1 Performed By: #### L 100.0100 ####[facility] [address] [place], [address] MCH (RBC) [Entitic mass] 30.2 pg Normal 27.0-32.0 [facility] Comment on above: Order Comment: 109.1 Performed By: #### L 100.0100 ####[facility] [address] [place], [address] MCHC (RBC) [Mass/Vol] 33.3 g/dL Normal 32-36 [facility] Comment on above: Order Comment: 109.1 Performed By: #### L 100.0100 ####[facility] [address] [place], [address] MCV (RBC) [Entitic vol] 90.7 fL Normal 80-94 [facility] Comment on above: Order Comment: 109.1 Performed By: #### L 100.0100 ####[facility] [address] [place], [address] Monocytes/100 WBC (Bld) 8.2 % Normal 0-10 [facility] Comment on above: Order Comment: 109.1 Performed By: #### L 100.0100 ####[facility] [address] [place], [address] Neutrophils/100 WBC (Bld) 65.6 % Normal 47-70 [facility] Comment on above: Order Comment: 109.1 Performed By: #### L 100.0100 ####[facility] [address] [place], [address] Nucleated RBC (Bld) [#/Vol] 0 10*3/uL Normal 0-5 [facility] Comment on above: Order Comment: 109.1 Performed By: #### L 100.0100 ####[facility] [address] [place], [address] Platelet mean volume (Bld) [Entitic vol] 11.0 fL Normal 6.2-12.0 [facility] Comment on above: Order Comment: 109.1 Performed By: #### L 100.0100 ####[facility] [address] [place], [address] Platelets (Bld) [#/Vol] 216 10*3/uL Normal 150-450 [facility] Comment on above: Order Comment: 109.1 Performed By: #### L 100.0100 ####[facility] [address] [place], [address] RBC (Bld) [#/Vol] 4.64 10*6/uL Normal 4.6-6.2 [facility] Comment on above: Order Comment: 109.1 Performed By: #### L 100.0100 ####[facility] [address] [place], [address] RDW SD 41.9 fl Normal 35.1-43.9 [facility] Comment on above: Order Comment: 109.1 Performed By: #### L 100.0100 ####[facility] [address] [place], [address] WBC (Bld) [#/Vol] 8.1 10*3/uL Normal 4.4-11.0 [facility] Comment on above: Order Comment: 109.1 Performed By: #### L 100.0100 ####[facility] [address] [place], [address] CBC W/Diff, Automatedon 10-2 Absolute Lymph 2.15 X10 3/uL Normal 0.83-4.51 [facility] Comment on above: Order Comment: 109.1 Performed By: #### L 100.0100 ####[facility] [address] [place], [address] Absolute Neut 7.1 X10 3/uL Normal 2.0-7.7 [facility] Comment on above: Order Comment: 109.1 Performed By: #### L 100.0100 ####[facility] [address] [place], [address] Basophils/100 WBC (Bld) 0.4 % Normal 0-1 [facility] Comment on above: Order Comment: 109.1 Performed By: #### L 100.0100 ####[facility] [address] [place], [address] Eosinophils/100 WBC (Bld) 0.6 % Normal 0-5 [facility] Comment on above: Order Comment: 109.1 Performed By: #### L 100.0100 ####[facility] [address] [place], [address] Erythrocyte distribution width (RBC) [Ratio] 12.6 % Normal 11.6-14.6 [facility] Comment on above: Order Comment: 109.1 Performed By: #### L 100.0100 ####[facility] [address] [place], [address] Hematocrit (Bld) [Volume fraction] 40.2 % Normal 40-54 [facility] Comment on above: Order Comment: 109.1 Performed By: #### L 100.0100 ####[facility] [address] [place], [address] Hemoglobin (Bld) [Mass/Vol] 13.6 g/dL Normal 13.0-16.5 [facility] Comment on above: Order Comment: 109.1 Performed By: #### L 100.0100 ####[facility] [address] [place], [address] IG% 0.500 Normal 0.0-0.9 [facility] Comment on above: Order Comment: 109.1 Result Comment: IG% - Immature Granulocytes (promyelocytes, myelocytes andmetamyelocytes) > 1% indicates that a LEFT SHIFT is Present. Performed By: #### L 100.0100 ####[facility] [address] [place], [address] Lymphocytes/100 WBC (Bld) 20.9 % Normal 19-41 [facility] Comment on above: Order Comment: 109.1 Performed By: #### L 100.0100 ####[facility] [address] [place], [address] MCH (RBC) [Entitic mass] 30.6 pg Normal 27.0-32.0 [facility] Comment on above: Order Comment: 109.1 Performed By: #### L 100.0100 ####[facility] [address] [place], [address] MCHC (RBC) [Mass/Vol] 33.8 g/dL Normal 32-36 [facility] Comment on above: Order Comment: 109.1 Performed By: #### L 100.0100 ####[facility] [address] [place], [address] MCV (RBC) [Entitic vol] 90.5 fL Normal 80-94 [facility] Comment on above: Order Comment: 109.1 Performed By: #### L 100.0100 ####[facility] [address] [place], [address] Monocytes/100 WBC (Bld) 8.5 % Normal 0-10 [facility] Comment on above: Order Comment: 109.1 Performed By: #### L 100.0100 ####[facility] [address] [place], [address] Neutrophils/100 WBC (Bld) 69.1 % Normal 47-70 [facility] Comment on above: Order Comment: 109.1 Performed By: #### L 100.0100 ####[facility] [address] [place], [address] Nucleated RBC (Bld) [#/Vol] 0 10*3/uL Normal 0-5 [facility] Comment on above: Order Comment: 109.1 Performed By: #### L 100.0100 ####[facility] [address] [place], [address] Platelet mean volume (Bld) [Entitic vol] 11.2 fL Normal 6.2-12.0 [facility] Comment on above: Order Comment: 109.1 Performed By: #### L 100.0100 ####[facility] [address] [place], [address] Platelets (Bld) [#/Vol] 226 10*3/uL Normal 150-450 [facility] Comment on above: Order Comment: 109.1 Performed By: #### L 100.0100 ####[facility] [address] [place], [address] RBC (Bld) [#/Vol] 4.44 10*6/uL Low 4.6-6.2 [facility] Comment on above: Order Comment: 109.1 Performed By: #### L 100.0100 ####[facility] [address] [place], [address] RDW SD 41.5 fl Normal 35.1-43.9 [facility] Comment on above: Order Comment: 109.1 Performed By: #### L 100.0100 ####[facility] [address] [place], [address] WBC (Bld) [#/Vol] 10.3 10*3/uL Normal 4.4-11.0 [facility] Comment on above: Order Comment: 109.1 Performed By: #### L 100.0100 ####[facility] [address] [place], [address] CBC-Complete Blood Cnt No Di ffon 02-23-2024 Erythrocyte distribution width (RBC) [Ratio] 12.9 % Normal 11.6-14.6 [facility] Comment on above: Order Comment: 109-1 Performed By: #### L 100.0500, L500.4100, L500.4050 ####[facility] [address] [place], [address] Hematocrit (Bld) [Volume fraction] 41.6 % Normal 40-54 [facility] Comment on above: Order Comment: 109-1 Performed By: #### L 100.0500, L500.4100, L500.4050 ####[facility] [address] [place], [address] Hemoglobin (Bld) [Mass/Vol] 14.0 g/dL Normal 13.0-16.5 [facility] Comment on above: Order Comment: 109-1 Performed By: #### L 100.0500, L500.4100, L500.4050 ####[facility] [address] [place], [address] MCH (RBC) [Entitic mass] 30.6 pg Normal 27.0-32.0 [facility] Comment on above: Order Comment: 109-1 Performed By: #### L 100.0500, L500.4100, L500.4050 ####[facility] [address] [place], [address] MCHC (RBC) [Mass/Vol] 33.7 g/dL Normal 32-36 [facility] Comment on above: Order Comment: 109-1 Performed By: #### L 100.0500, L500.4100, L500.4050 ####[facility] [address] [place], [address] MCV (RBC) [Entitic vol] 91.0 fL Normal 80-94 [facility] Comment on above: Order Comment: 109-1 Performed By: #### L 100.0500, L500.4100, L500.4050 ####[facility] [address] [place], [address] Platelet mean volume (Bld) [Entitic vol] 11.5 fL Normal 6.2-12.0 [facility] Comment on above: Order Comment: 109-1 Performed By: #### L 100.0500, L500.4100, L500.4050 ####[facility] [address] [place], [address] Platelets (Bld) [#/Vol] 209 10*3/uL Normal 150-450 [facility] Comment on above: Order Comment: 109-1 Performed By: #### L 100.0500, L500.4100, L500.4050 ####[facility] [address] [place], [address] RBC (Bld) [#/Vol] 4.57 10*6/uL Low 4.6-6.2 [facility] Comment on above: Order Comment: 109-1 Performed By: #### L 100.0500, L500.4100, L500.4050 ####[facility] [address] [place], [address] RDW SD 42.4 fl Normal 35.1-43.9 [facility] Comment on above: Order Comment: 109-1 Performed By: #### L 100.0500, L500.4100, L500.4050 ####[facility] [address] [place], [address] WBC (Bld) [#/Vol] 8.4 10*3/uL Normal 4.4-11.0 [facility] Comment on above: Order Comment: 109-1 Performed By: #### L 100.0500, L500.4100, L500.4050 ####[facility] [address] [place], [address] Comprehensive Metabolic Prof ilon 02-23-2024 Albumin [Mass/Vol] 3.1 g/dL Low 3.2-5.0 [facility] Comment on above: Order Comment: 109-1 Performed By: #### L 100.0500, L500.4100, L500.4050 ####[facility] [address] [place], [address] Albumin/Globulin [Mass ratio] 1.1 {ratio} Normal 0.9-2.4 [facility] Comment on above: Order Comment: 109-1 Performed By: #### L 100.0500, L500.4100, L500.4050 ####[facility] [address] [place], [address] ALK P 123 U/L High 45-117 [facility] Comment on above: Order Comment: 109-1 Performed By: #### L 100.0500, L500.4100, L500.4050 ####[facility] [address] [place], [address] ALT [Catalytic activity/Vol] 16 U/L Normal 16-61 [facility] Comment on above: Order Comment: 109-1 Performed By: #### L 100.0500, L500.4100, L500.4050 ####[facility] [address] [place], [address] AST [Catalytic activity/Vol] 10 U/L Low 15-37 [facility] Comment on above: Order Comment: 109-1 Performed By: #### L 100.0500, L500.4100, L500.4050 ####[facility] [address] [place], [address] Bilirubin [Mass/Vol] 0.50 mg/dL Normal 0.20-1.00 [facility] Comment on above: Order Comment: 109-1 Result Comment: For patients on eltrombopag therapy, use of Dimension [place] TBIL is not recommended. Performed By: #### L 100.0500, L500.4100, L500.4050 ####[facility] [address] [place], [address] BUN/CRE 24.9 RATIO High 10-20 [facility] Comment on above: Order Comment: 109-1 Performed By: #### L 100.0500, L500.4100, L500.4050 ####[facility] [address] [place], [address] CA,Total 8.5 mg/dL Normal 8.5-10.1 [facility] Comment on above: Order Comment: 109-1 Performed By: #### L 100.0500, L500.4100, L500.4050 ####[facility] [address] [place], [address] Chloride [Moles/Vol] 109 mmol/L High 98-107 [facility] Comment on above: Order Comment: 109-1 Performed By: #### L 100.0500, L500.4100, L500.4050 ####[facility] [address] [place], [address] CO2 [Moles/Vol] 27.0 mmol/L Normal 21.0-32.0 [facility] Comment on above: Order Comment: 109-1 Performed By: #### L 100.0500, L500.4100, L500.4050 ####[facility] [address] [place], [address] Creatinine [Mass/Vol] 0.64 mg/dL Low 0.70-1.30 [facility] Comment on above: Order Comment: 109-1 Result Comment: The validity of the calculated GFR GFRAA in patients over70 years has not been determined. Clinical correlation isessential. Performed By: #### L 100.0500, L500.4100, L500.4050 ####[facility] [address] [place], [address] EST GFR - AA 160 mL/min Normal >60 [facility] Comment on above: Order Comment: 109-1 Result Comment: Afri can Malagasy GFR Calc Performed By: #### L 100.0500, L500.4100, L500.4050 ####[facility] [address] [place], [address] GAP 6 Normal 5-15 [facility] Comment on above: Order Comment: 109-1 Performed By: #### L 100.0500, L500.4100, L500.4050 ####[facility] [address] [place], [address] GFR/1.73 sq M.predicted among non-blacks MDRD (S/P/Bld) [Vol rate/Area] 132 mL/min/{1.73_m2} Normal >60 [facility] Comment on above: Order Comment: 109-1 Result Comment: Non- GFR Calc Performed By: #### L 100.0500, L500.4100, L500.4050 ####[facility] [address] [place], [address] Globulin (S) [Mass/Vol] 2.9 g/dL Normal 2.2-4.2 [facility] Comment on above: Order Comment: 109-1 Performed By: #### L 100.0500, L500.4100, L500.4050 ####[facility] [address] [place], [address] Glucose [Mass/Vol] 111 mg/dL High 74-106 [facility] Comment on above: Order Comment: 109-1 Result Comment: Fast ing Glucose result from 100 to 125 mg/dLsuggests IMPAIRED HOMEOSTASIS per A.D.A. criteria. Performed By: #### L 100.0500, L500.4100, L500.4050 ####[facility] [address] [place], [address] Potassium [Moles/Vol] 3.6 mmol/L Normal 3.5-5.1 [facility] Comment on above: Order Comment: 109-1 Performed By: #### L 100.0500, L500.4100, L500.4050 ####[facility] [address] [place], [address] Sodium [Moles/Vol] 141 mmol/L Normal 136-145 [facility] Comment on above: Order Comment: 109-1 Performed By: #### L 100.0500, L500.4100, L500.4050 ####[facility] [address] [place], [address] T PROT 6.0 g/dL Low 6.4-8.2 [facility] Comment on above: Order Comment: 109-1 Performed By: #### L 100.0500, L500.4100, L500.4050 ####[facility] [address] [place], [address] Urea nitrogen [Mass/Vol] 16 mg/dL Normal 7-18 [facility] Comment on above: Order Comment: 109-1 Performed By: #### L 100.0500, L500.4100, L500.4050 ####[facility] [address] [place], [address] Lipid Profileon 02-23-2024 Cholesterol [Mass/Vol] 123 mg/dL Normal 200 [facility] Comment on above: Order Comment: 109-1 Result Comment: <200 mg/dL Desirable 200-240 mg/dL Borderline >240 mg/dL High Risk Performed By: #### L 100.0500, L500.4100, L500.4050 ####[facility] [address] [place], [address] Cholesterol in HDL [Mass/Vol] 28 mg/dL Low [facility] Comment on above: Order Comment: 109-1 Result Comment: The drugs N-Acetylcysteine and Metamizole may falselydepress this assay. Reference Range HDL <40 mg/dL Low HDL Cholesterol HDL >or= 60 mg/dL High HDL Cholesterol Performed By: #### L 100.0500, L500.4100, L500.4050 ####[facility] [address] [place], [address] Cholesterol in LDL [Mass/Vol] 71 mg/dL Normal 0-130 [facility] Comment on above: Order Comment: 109-1 Performed By: #### L 100.0500, L500.4100, L500.4050 ####[facility] [address] [place], [address] Cholesterol in VLDL [Mass/Vol] 24 mg/dL Normal 5-40 [facility] Comment on above: Order Comment: 109-1 Performed By: #### L 100.0500, L500.4100, L500.4050 ####[facility] [address] [place], [address] Triglyceride [Mass/Vol] 119 mg/dL Normal [facility] Comment on above: Order Comment: 109-1 Result Comment: The drugs N-Acetylcysteine and Metamizole may falselydepress this assay.Serum Triglycerides Reference Interval Normal <150 mg/dL Borderline high 150 - 199 mg/dL High 200 - 499 mg/dL Very High > or = 500 mg/dL Performed By: #### L 100.0500, L500.4100, L500.4050 ####[facility] [address] [place], [address] CBC W/Diff, Automatedon 10-2 Absolute Lymph 1.92 X10 3/uL Normal 0.83-4.51 [facility] Comment on above: Order Comment: 109-1 Performed By: #### L 100.0100 ####[facility] [address] [place], [address] Absolute Neut 6.9 X10 3/uL Normal 2.0-7.7 [facility] Comment on above: Order Comment: 109-1 Performed By: #### L 100.0100 ####[facility] [address] [place], [address] Basophils/100 WBC (Bld) 0.4 % Normal 0-1 [facility] Comment on above: Order Comment: 109-1 Performed By: #### L 100.0100 ####[facility] [address] [place], [address] Eosinophils/100 WBC (Bld) 0.6 % Normal 0-5 [facility] Comment on above: Order Comment: 109-1 Performed By: #### L 100.0100 ####[facility] [address] [place], [address] Erythrocyte distribution width (RBC) [Ratio] 12.9 % Normal 11.6-14.6 [facility] Comment on above: Order Comment: 109-1 Performed By: #### L 100.0100 ####[facility] [address] [place], [address] Hematocrit (Bld) [Volume fraction] 40.4 % Normal 40-54 [facility] Comment on above: Order Comment: 109-1 Performed By: #### L 100.0100 ####[facility] [address] [place], [address] Hemoglobin (Bld) [Mass/Vol] 13.3 g/dL Normal 13.0-16.5 [facility] Comment on above: Order Comment: 109-1 Performed By: #### L 100.0100 ####[facility] [address] [place], [address] IG% 0.300 Normal 0.0-0.9 [facility] Comment on above: Order Comment: 109-1 Result Comment: IG% - Immature Granulocytes (promyelocytes, myelocytes andmetamyelocytes) > 1% indicates that a LEFT SHIFT is Present. Performed By: #### L 100.0100 ####[facility] [address] [place], [address] Lymphocytes/100 WBC (Bld) 20.1 % Normal 19-41 [facility] Comment on above: Order Comment: 109-1 Performed By: #### L 100.0100 ####[facility] [address] [place], [address] MCH (RBC) [Entitic mass] 30.2 pg Normal 27.0-32.0 [facility] Comment on above: Order Comment: 109-1 Performed By: #### L 100.0100 ####[facility] [address] [place], [address] MCHC (RBC) [Mass/Vol] 32.9 g/dL Normal 32-36 [facility] Comment on above: Order Comment: 109-1 Performed By: #### L 100.0100 ####[facility] [address] [place], [address] MCV (RBC) [Entitic vol] 91.6 fL Normal 80-94 [facility] Comment on above: Order Comment: 109-1 Performed By: #### L 100.0100 ####[facility] [address] [place], [address] Monocytes/100 WBC (Bld) 6.8 % Normal 0-10 [facility] Comment on above: Order Comment: 109-1 Performed By: #### L 100.0100 ####[facility] [address] [place], [address] Neutrophils/100 WBC (Bld) 71.8 % High 47-70 [facility] Comment on above: Order Comment: 109-1 Performed By: #### L 100.0100 ####[facility] [address] [place], [address] Nucleated RBC (Bld) [#/Vol] 0 10*3/uL Normal 0-5 [facility] Comment on above: Order Comment: 109-1 Performed By: #### L 100.0100 ####[facility] [address] [place], [address] Platelet mean volume (Bld) [Entitic vol] 10.9 fL Normal 6.2-12.0 [facility] Comment on above: Order Comment: 109-1 Performed By: #### L 100.0100 ####[facility] [address] [place], [address] Platelets (Bld) [#/Vol] 209 10*3/uL Normal 150-450 [facility] Comment on above: Order Comment: 109-1 Performed By: #### L 100.0100 ####[facility] [address] [place], [address] RBC (Bld) [#/Vol] 4.41 10*6/uL Low 4.6-6.2 [facility] Comment on above: Order Comment: 109-1 Performed By: #### L 100.0100 ####[facility] [address] [place], [address] RDW SD 42.8 fl Normal 35.1-43.9 [facility] Comment on above: Order Comment: 109-1 Performed By: #### L 100.0100 ####[facility] [address] [place], [address] WBC (Bld) [#/Vol] 9.6 10*3/uL Normal 4.4-11.0 [facility] Comment on above: Order Comment: 109-1 Performed By: #### L 100.0100 ####[facility] [address] [place], [address] CBC W/Diff, Automatedon 10-1 Absolute Lymph 2.08 X10 3/uL Normal 0.83-4.51 [facility] Comment on above: Order Comment: 109.1 Performed By: #### L 100.0100 ####[facility] [address] [place], [address] Absolute Neut 6.9 X10 3/uL Normal 2.0-7.7 [facility] Comment on above: Order Comment: 109.1 Performed By: #### L 100.0100 ####[facility] [address] [place], [address] Basophils/100 WBC (Bld) 0.5 % Normal 0-1 [facility] Comment on above: Order Comment: 109.1 Performed By: #### L 100.0100 ####[facility] [address] [place], [address] Eosinophils/100 WBC (Bld) 0.3 % Normal 0-5 [facility] Comment on above: Order Comment: 109.1 Performed By: #### L 100.0100 ####[facility] [address] [place], [address] Erythrocyte distribution width (RBC) [Ratio] 12.8 % Normal 11.6-14.6 [facility] Comment on above: Order Comment: 109.1 Performed By: #### L 100.0100 ####[facility] [address] [place], [address] Hematocrit (Bld) [Volume fraction] 40.6 % Normal 40-54 [facility] Comment on above: Order Comment: 109.1 Performed By: #### L 100.0100 ####[facility] [address] [place], [address] Hemoglobin (Bld) [Mass/Vol] 13.1 g/dL Normal 13.0-16.5 [facility] Comment on above: Order Comment: 109.1 Performed By: #### L 100.0100 ####[facility] [address] [place], [address] IG% 0.300 Normal 0.0-0.9 [facility] Comment on above: Order Comment: 109.1 Result Comment: IG% - Immature Granulocytes (promyelocytes, myelocytes andmetamyelocytes) > 1% indicates that a LEFT SHIFT is Present. Performed By: #### L 100.0100 ####[facility] [address] [place], [address] Lymphocytes/100 WBC (Bld) 21.2 % Normal 19-41 [facility] Comment on above: Order Comment: 109.1 Performed By: #### L 100.0100 ####[facility] [address] [place], [address] MCH (RBC) [Entitic mass] 29.8 pg Normal 27.0-32.0 [facility] Comment on above: Order Comment: 109.1 Performed By: #### L 100.0100 ####[facility] [address] [place], [address] MCHC (RBC) [Mass/Vol] 32.3 g/dL Normal 32-36 [facility] Comment on above: Order Comment: 109.1 Performed By: #### L 100.0100 ####[facility] [address] [place], [address] MCV (RBC) [Entitic vol] 92.5 fL Normal 80-94 [facility] Comment on above: Order Comment: 109.1 Performed By: #### L 100.0100 ####[facility] [address] [place], [address] Monocytes/100 WBC (Bld) 7.6 % Normal 0-10 [facility] Comment on above: Order Comment: 109.1 Performed By: #### L 100.0100 ####[facility] [address] [place], [address] Neutrophils/100 WBC (Bld) 70.1 % High 47-70 [facility] Comment on above: Order Comment: 109.1 Performed By: #### L 100.0100 ####[facility] [address] [place], [address] Nucleated RBC (Bld) [#/Vol] 0 10*3/uL Normal 0-5 [facility] Comment on above: Order Comment: 109.1 Performed By: #### L 100.0100 ####[facility] [address] [place], [address] Platelet mean volume (Bld) [Entitic vol] 10.8 fL Normal 6.2-12.0 [facility] Comment on above: Order Comment: 109.1 Performed By: #### L 100.0100 ####[facility] [address] [place], [address] Platelets (Bld) [#/Vol] 221 10*3/uL Normal 150-450 [facility] Comment on above: Order Comment: 109.1 Performed By: #### L 100.0100 ####[facility] [address] [place], [address] RBC (Bld) [#/Vol] 4.39 10*6/uL Low 4.6-6.2 [facility] Comment on above: Order Comment: 109.1 Performed By: #### L 100.0100 ####[facility] [address] [place], [address] RDW SD 43.4 fl Normal 35.1-43.9 [facility] Comment on above: Order Comment: 109.1 Performed By: #### L 100.0100 ####[facility] [address] [place], [address] WBC (Bld) [#/Vol] 9.8 10*3/uL Normal 4.4-11.0 [facility] Comment on above: Order Comment: 109.1 Performed By: #### L 100.0100 ####[facility] [address] [place], [address] CBC W/Diff, Automatedon 10-0 7-4 Absolute Lymph 2.06 X10 3/uL Normal 0.83-4.51 [facility] Comment on above: Order Comment: 109.1 Performed By: #### L 100.0100 ####[facility] [address] [place], [address] Absolute Neut 4.8 X10 3/uL Normal 2.0-7.7 [facility] Comment on above: Order Comment: 109.1 Performed By: #### L 100.0100 ####[facility] [address] [place], [address] Basophils/100 WBC (Bld) 0.7 % Normal 0-1 [facility] Comment on above: Order Comment: 109.1 Performed By: #### L 100.0100 ####[facility] [address] [place], [address] Eosinophils/100 WBC (Bld) 0.5 % Normal 0-5 [facility] Comment on above: Order Comment: 109.1 Performed By: #### L 100.0100 ####[facility] [address] [place], [address] Erythrocyte distribution width (RBC) [Ratio] 13.2 % Normal 11.6-14.6 [facility] Comment on above: Order Comment: 109.1 Performed By: #### L 100.0100 ####[facility] [address] [place], [address] Hematocrit (Bld) [Volume fraction] 42.7 % Normal 40-54 [facility] Comment on above: Order Comment: 109.1 Performed By: #### L 100.0100 ####[facility] [address] [place], [address] Hemoglobin (Bld) [Mass/Vol] 13.5 g/dL Normal 13.0-16.5 [facility] Comment on above: Order Comment: 109.1 Performed By: #### L 100.0100 ####[facility] [address] [place], [address] IG% 0.400 Normal 0.0-0.9 [facility] Comment on above: Order Comment: 109.1 Result Comment: IG% - Immature Granulocytes (promyelocytes, myelocytes andmetamyelocytes) > 1% indicates that a LEFT SHIFT is Present. Performed By: #### L 100.0100 ####[facility] [address] [place], [address] Lymphocytes/100 WBC (Bld) 26.9 % Normal 19-41 [facility] Comment on above: Order Comment: 109.1 Performed By: #### L 100.0100 ####[facility] [address] [place], [address] MCH (RBC) [Entitic mass] 29.3 pg Normal 27.0-32.0 [facility] Comment on above: Order Comment: 109.1 Performed By: #### L 100.0100 ####[facility] [address] [place], [address] MCHC (RBC) [Mass/Vol] 31.6 g/dL Low 32-36 [facility] Comment on above: Order Comment: 109.1 Performed By: #### L 100.0100 ####[facility] [address] [place], [address] MCV (RBC) [Entitic vol] 92.8 fL Normal 80-94 [facility] Comment on above: Order Comment: 109.1 Performed By: #### L 100.0100 ####[facility] [address] [place], [address] Monocytes/100 WBC (Bld) 9.3 % Normal 0-10 [facility] Comment on above: Order Comment: 109.1 Performed By: #### L 100.0100 ####[facility] [address] [place], [address] Neutrophils/100 WBC (Bld) 62.2 % Normal 47-70 [facility] Comment on above: Order Comment: 109.1 Performed By: #### L 100.0100 ####[facility] [address] [place], [address] Nucleated RBC (Bld) [#/Vol] 0 10*3/uL Normal 0-5 [facility] Comment on above: Order Comment: 109.1 Performed By: #### L 100.0100 ####[facility] [address] [place], [address] Platelet mean volume (Bld) [Entitic vol] 11.2 fL Normal 6.2-12.0 [facility] Comment on above: Order Comment: 109.1 Performed By: #### L 100.0100 ####[facility] [address] [place], [address] Platelets (Bld) [#/Vol] 192 10*3/uL Normal 150-450 [facility] Comment on above: Order Comment: 109.1 Performed By: #### L 100.0100 ####[facility] [address] [place], [address] RBC (Bld) [#/Vol] 4.60 10*6/uL Normal 4.6-6.2 [facility] Comment on above: Order Comment: 109.1 Performed By: #### L 100.0100 ####[facility] [address] [place], [address] RDW SD 44.9 fl High 35.1-43.9 [facility] Comment on above: Order Comment: 109.1 Performed By: #### L 100.0100 ####[facility] [address] [place], [address] WBC (Bld) [#/Vol] 7.7 10*3/uL Normal 4.4-11.0 [facility] Comment on above: Order Comment: 109.1 Performed By: #### L 100.0100 ####[facility] [address] [place], [address] CBC W/Diff, Automatedon 09-3 0-2024 Absolute Lymph 2.12 X10 3/uL Normal 0.83-4.51 [facility] Comment on above: Order Comment: 109.1 Performed By: #### L 100.0100 ####[facility] [address] [place], [address] Absolute Neut 5.2 X10 3/uL Normal 2.0-7.7 [facility] Comment on above: Order Comment: 109.1 Performed By: #### L 100.0100 ####[facility] [address] [place], [address] Basophils/100 WBC (Bld) 0.6 % Normal 0-1 [facility] Comment on above: Order Comment: 109.1 Performed By: #### L 100.0100 ####[facility] [address] [place], [address] Eosinophils/100 WBC (Bld) 0.5 % Normal 0-5 [facility] Comment on above: Order Comment: 109.1 Performed By: #### L 100.0100 ####[facility] [address] [place], [address] Erythrocyte distribution width (RBC) [Ratio] 13.2 % Normal 11.6-14.6 [facility] Comment on above: Order Comment: 109.1 Performed By: #### L 100.0100 ####[facility] [address] [place], [address] Hematocrit (Bld) [Volume fraction] 46.0 % Normal 40-54 [facility] Comment on above: Order Comment: 109.1 Performed By: #### L 100.0100 ####[facility] [address] [place], [address] Hemoglobin (Bld) [Mass/Vol] 14.5 g/dL Normal 13.0-16.5 [facility] Comment on above: Order Comment: 109.1 Performed By: #### L 100.0100 ####[facility] [address] [place], [address] IG% 0.200 Normal 0.0-0.9 [facility] Comment on above: Order Comment: 109.1 Result Comment: IG% - Immature Granulocytes (promyelocytes, myelocytes andmetamyelocytes) > 1% indicates that a LEFT SHIFT is Present. Performed By: #### L 100.0100 ####[facility] [address] [place], [address] Lymphocytes/100 WBC (Bld) 25.9 % Normal 19-41 [facility] Comment on above: Order Comment: 109.1 Performed By: #### L 100.0100 ####[facility] [address] [place], [address] MCH (RBC) [Entitic mass] 29.2 pg Normal 27.0-32.0 [facility] Comment on above: Order Comment: 109.1 Performed By: #### L 100.0100 ####[facility] [address] [place], [address] MCHC (RBC) [Mass/Vol] 31.5 g/dL Low 32-36 [facility] Comment on above: Order Comment: 109.1 Performed By: #### L 100.0100 ####[facility] [address] [place], [address] MCV (RBC) [Entitic vol] 92.7 fL Normal 80-94 [facility] Comment on above: Order Comment: 109.1 Performed By: #### L 100.0100 ####[facility] [address] [place], [address] Monocytes/100 WBC (Bld) 9.0 % Normal 0-10 [facility] Comment on above: Order Comment: 109.1 Performed By: #### L 100.0100 ####[facility] [address] [place], [address] Neutrophils/100 WBC (Bld) 63.8 % Normal 47-70 [facility] Comment on above: Order Comment: 109.1 Performed By: #### L 100.0100 ####[facility] [address] [place], [address] Nucleated RBC (Bld) [#/Vol] 0 10*3/uL Normal 0-5 [facility] Comment on above: Order Comment: 109.1 Performed By: #### L 100.0100 ####[facility] [address] [place], [address] Platelet mean volume (Bld) [Entitic vol] 10.9 fL Normal 6.2-12.0 [facility] Comment on above: Order Comment: 109.1 Performed By: #### L 100.0100 ####[facility] [address] [place], [address] Platelets (Bld) [#/Vol] 192 10*3/uL Normal 150-450 [facility] Comment on above: Order Comment: 109.1 Performed By: #### L 100.0100 ####[facility] [address] [place], [address] RBC (Bld) [#/Vol] 4.96 10*6/uL Normal 4.6-6.2 [facility] Comment on above: Order Comment: 109.1 Performed By: #### L 100.0100 ####[facility] [address] [place], [address] RDW SD 44.6 fl High 35.1-43.9 [facility] Comment on above: Order Comment: 109.1 Performed By: #### L 100.0100 ####[facility] [address] [place], [address] WBC (Bld) [#/Vol] 8.2 10*3/uL Normal 4.4-11.0 [facility] Comment on above: Order Comment: 109.1 Performed By: #### L 100.0100 ####[facility] [address] [place], [address] CBC W/Diff, Automatedon 09-2 -2023 Absolute Lymph 1.62 X10 3/uL Normal 0.83-4.51 [facility] Comment on above: Order Comment: 109-1 Performed By: #### L 100.0100 ####[facility] [address] [place], [address] Absolute Neut 8.1 X10 3/uL High 2.0-7.7 [facility] Comment on above: Order Comment: 109-1 Performed By: #### L 100.0100 ####[facility] [address] [place], [address] Basophils/100 WBC (Bld) 0.4 % Normal 0-1 [facility] Comment on above: Order Comment: 109-1 Performed By: #### L 100.0100 ####[facility] [address] [place], [address] Eosinophils/100 WBC (Bld) 0.1 % Normal 0-5 [facility] Comment on above: Order Comment: 109-1 Performed By: #### L 100.0100 ####[facility] [address] [place], [address] Erythrocyte distribution width (RBC) [Ratio] 12.9 % Normal 11.6-14.6 [facility] Comment on above: Order Comment: 109-1 Performed By: #### L 100.0100 ####[facility] [address] [place], [address] Hematocrit (Bld) [Volume fraction] 41.9 % Normal 40-54 [facility] Comment on above: Order Comment: 109-1 Performed By: #### L 100.0100 ####[facility] [address] [place], [address] Hemoglobin (Bld) [Mass/Vol] 13.5 g/dL Normal 13.0-16.5 [facility] Comment on above: Order Comment: 109-1 Performed By: #### L 100.0100 ####[facility] [address] [place], [address] IG% 0.400 Normal 0.0-0.9 [facility] Comment on above: Order Comment: 109-1 Result Comment: IG% - Immature Granulocytes (promyelocytes, myelocytes andmetamyelocytes) > 1% indicates that a LEFT SHIFT is Present. Performed By: #### L 100.0100 ####[facility] [address] [place], [address] Lymphocytes/100 WBC (Bld) 15.2 % Low 19-41 [facility] Comment on above: Order Comment: 109-1 Performed By: #### L 100.0100 ####[facility] [address] [place], [address] MCH (RBC) [Entitic mass] 29.3 pg Normal 27.0-32.0 [facility] Comment on above: Order Comment: 109-1 Performed By: #### L 100.0100 ####[facility] [address] [place], [address] MCHC (RBC) [Mass/Vol] 32.2 g/dL Normal 32-36 [facility] Comment on above: Order Comment: 109-1 Performed By: #### L 100.0100 ####[facility] [address] [place], [address] MCV (RBC) [Entitic vol] 90.9 fL Normal 80-94 [facility] Comment on above: Order Comment: 109-1 Performed By: #### L 100.0100 ####[facility] [address] [place], [address] Monocytes/100 WBC (Bld) 7.4 % Normal 0-10 [facility] Comment on above: Order Comment: 109-1 Performed By: #### L 100.0100 ####[facility] [address] [place], [address] Neutrophils/100 WBC (Bld) 76.5 % High 47-70 [facility] Comment on above: Order Comment: 109-1 Performed By: #### L 100.0100 ####[facility] [address] [place], [address] Nucleated RBC (Bld) [#/Vol] 0 10*3/uL Normal 0-5 [facility] Comment on above: Order Comment: 109-1 Performed By: #### L 100.0100 ####[facility] [address] [place], [address] Platelet mean volume (Bld) [Entitic vol] 11.2 fL Normal 6.2-12.0 [facility] Comment on above: Order Comment: 109-1 Performed By: #### L 100.0100 ####[facility] [address] [place], [address] Platelets (Bld) [#/Vol] 220 10*3/uL Normal 150-450 [facility] Comment on above: Order Comment: 109-1 Performed By: #### L 100.0100 ####[facility] [address] [place], [address] RBC (Bld) [#/Vol] 4.61 10*6/uL Normal 4.6-6.2 [facility] Comment on above: Order Comment: 109-1 Performed By: #### L 100.0100 ####[facility] [address] [place], [address] RDW SD 42.1 fl Normal 35.1-43.9 [facility] Comment on above: Order Comment: 109-1 Performed By: #### L 100.0100 ####[facility] [address] [place], [address] WBC (Bld) [#/Vol] 10.6 10*3/uL Normal 4.4-11.0 [facility] Comment on above: Order Comment: 109-1 Performed By: #### L 100.0100 ####[facility] [address] [place], [address] CBC W/Diff, Automatedon 12-30-2023 Absolute Lymph 2.15 X10 3/uL Normal 0.83-4.51 [facility] Comment on above: Order Comment: 109-1 Performed By: #### L 100.0100 ####[facility] [address] [place], [address] Absolute Neut 5.4 X10 3/uL Normal 2.0-7.7 [facility] Comment on above: Order Comment: 109-1 Performed By: #### L 100.0100 ####[facility] [address] [place], [address] Basophils/100 WBC (Bld) 0.7 % Normal 0-1 [facility] Comment on above: Order Comment: 109-1 Performed By: #### L 100.0100 ####[facility] [address] [place], [address] Eosinophils/100 WBC (Bld) 0.7 % Normal 0-5 [facility] Comment on above: Order Comment: 109-1 Performed By: #### L 100.0100 ####[facility] [address] [place], [address] Erythrocyte distribution width (RBC) [Ratio] 13.1 % Normal 11.6-14.6 [facility] Comment on above: Order Comment: 109-1 Performed By: #### L 100.0100 ####[facility] [address] [place], [address] Hematocrit (Bld) [Volume fraction] 44.1 % Normal 40-54 [facility] Comment on above: Order Comment: 109-1 Performed By: #### L 100.0100 ####[facility] [address] [place], [address] Hemoglobin (Bld) [Mass/Vol] 14.2 g/dL Normal 13.0-16.5 [facility] Comment on above: Order Comment: 109-1 Performed By: #### L 100.0100 ####[facility] [address] [place], [address] IG% 0.400 Normal 0.0-0.9 [facility] Comment on above: Order Comment: 109-1 Result Comment: IG% - Immature Granulocytes (promyelocytes, myelocytes andmetamyelocytes) > 1% indicates that a LEFT SHIFT is Present. Performed By: #### L 100.0100 ####[facility] [address] [place], [address] Lymphocytes/100 WBC (Bld) 25.7 % Normal 19-41 [facility] Comment on above: Order Comment: 109-1 Performed By: #### L 100.0100 ####[facility] [address] [place], [address] MCH (RBC) [Entitic mass] 29.5 pg Normal 27.0-32.0 [facility] Comment on above: Order Comment: 109-1 Performed By: #### L 100.0100 ####[facility] [address] [place], [address] MCHC (RBC) [Mass/Vol] 32.2 g/dL Normal 32-36 [facility] Comment on above: Order Comment: 109-1 Performed By: #### L 100.0100 ####[facility] [address] [place], [address] MCV (RBC) [Entitic vol] 91.7 fL Normal 80-94 [facility] Comment on above: Order Comment: 109-1 Performed By: #### L 100.0100 ####[facility] [address] [place], [address] Monocytes/100 WBC (Bld) 7.5 % Normal 0-10 [facility] Comment on above: Order Comment: 109-1 Performed By: #### L 100.0100 ####[facility] [address] [place], [address] Neutrophils/100 WBC (Bld) 65.0 % Normal 47-70 [facility] Comment on above: Order Comment: 109-1 Performed By: #### L 100.0100 ####[facility] [address] [place], [address] Nucleated RBC (Bld) [#/Vol] 0 10*3/uL Normal 0-5 [facility] Comment on above: Order Comment: 109-1 Performed By: #### L 100.0100 ####[facility] [address] [place], [address] Platelet mean volume (Bld) [Entitic vol] 11.1 fL Normal 6.2-12.0 [facility] Comment on above: Order Comment: 109-1 Performed By: #### L 100.0100 ####[facility] [address] [place], [address] Platelets (Bld) [#/Vol] 200 10*3/uL Normal 150-450 [facility] Comment on above: Order Comment: 109-1 Performed By: #### L 100.0100 ####[facility] [address] [place], [address] RBC (Bld) [#/Vol] 4.81 10*6/uL Normal 4.6-6.2 [facility] Comment on above: Order Comment: 109-1 Performed By: #### L 100.0100 ####[facility] [address] [place], [address] RDW SD 44.1 fl High 35.1-43.9 [facility] Comment on above: Order Comment: 109-1 Performed By: #### L 100.0100 ####[facility] [address] [place], [address] WBC (Bld) [#/Vol] 8.4 10*3/uL Normal 4.4-11.0 [facility] Comment on above: Order Comment: 109-1 Performed By: #### L 100.0100 ####[facility] [address] [place], [address] CBC W/Diff, Automatedon 09-0 9-2023 Absolute Lymph 3.20 X10 3/uL Normal 0.83-4.51 [facility] Comment on above: Order Comment: 109-1 Performed By: #### L 100.0100 ####[facility] [address] [place], [address] Absolute Neut 5.5 X10 3/uL Normal 2.0-7.7 [facility] Comment on above: Order Comment: 109-1 Performed By: #### L 100.0100 ####[facility] [address] [place], [address] Basophils/100 WBC (Bld) 0.5 % Normal 0-1 [facility] Comment on above: Order Comment: 109-1 Performed By: #### L 100.0100 ####[facility] [address] [place], [address] Eosinophils/100 WBC (Bld) 0.6 % Normal 0-5 [facility] Comment on above: Order Comment: 109-1 Performed By: #### L 100.0100 ####[facility] [address] [place], [address] Erythrocyte distribution width (RBC) [Ratio] 13.2 % Normal 11.6-14.6 [facility] Comment on above: Order Comment: 109-1 Performed By: #### L 100.0100 ####[facility] [address] [place], [address] Hematocrit (Bld) [Volume fraction] 44.3 % Normal 40-54 [facility] Comment on above: Order Comment: 109-1 Performed By: #### L 100.0100 ####[facility] [address] [place], [address] Hemoglobin (Bld) [Mass/Vol] 14.4 g/dL Normal 13.0-16.5 [facility] Comment on above: Order Comment: 109-1 Performed By: #### L 100.0100 ####[facility] [address] [place], [address] IG% 0.400 Normal 0.0-0.9 [facility] Comment on above: Order Comment: 109-1 Result Comment: IG% - Immature Granulocytes (promyelocytes, myelocytes andmetamyelocytes) > 1% indicates that a LEFT SHIFT is Present. Performed By: #### L 100.0100 ####[facility] [address] [place], [address] Lymphocytes/100 WBC (Bld) 31.4 % Normal 19-41 [facility] Comment on above: Order Comment: 109-1 Performed By: #### L 100.0100 ####[facility] [address] [place], [address] MCH (RBC) [Entitic mass] 29.8 pg Normal 27.0-32.0 [facility] Comment on above: Order Comment: 109-1 Performed By: #### L 100.0100 ####[facility] [address] [place], [address] MCHC (RBC) [Mass/Vol] 32.5 g/dL Normal 32-36 [facility] Comment on above: Order Comment: 109-1 Performed By: #### L 100.0100 ####[facility] [address] [place], [address] MCV (RBC) [Entitic vol] 91.7 fL Normal 80-94 [facility] Comment on above: Order Comment: 109-1 Performed By: #### L 100.0100 ####[facility] [address] [place], [address] Monocytes/100 WBC (Bld) 12.8 % High 0-10 [facility] Comment on above: Order Comment: 109-1 Performed By: #### L 100.0100 ####[facility] [address] [place], [address] Neutrophils/100 WBC (Bld) 54.3 % Normal 47-70 [facility] Comment on above: Order Comment: 109-1 Performed By: #### L 100.0100 ####[facility] [address] [place], [address] Nucleated RBC (Bld) [#/Vol] 0 10*3/uL Normal 0-5 [facility] Comment on above: Order Comment: 109-1 Performed By: #### L 100.0100 ####[facility] [address] [place], [address] Platelet mean volume (Bld) [Entitic vol] 11.9 fL Normal 6.2-12.0 [facility] Comment on above: Order Comment: 109-1 Performed By: #### L 100.0100 ####[facility] [address] [place], [address] Platelets (Bld) [#/Vol] 187 10*3/uL Normal 150-450 [facility] Comment on above: Order Comment: 109-1 Performed By: #### L 100.0100 ####[facility] [address] [place], [address] RBC (Bld) [#/Vol] 4.83 10*6/uL Normal 4.6-6.2 [facility] Comment on above: Order Comment: 109-1 Performed By: #### L 100.0100 ####[facility] [address] [place], [address] RDW SD 44.3 fl High 35.1-43.9 [facility] Comment on above: Order Comment: 109-1 Performed By: #### L 100.0100 ####[facility] [address] [place], [address] WBC (Bld) [#/Vol] 10.2 10*3/uL Normal 4.4-11.0 [facility] Comment on above: Order Comment: 109-1 Performed By: #### L 100.0100 ####[facility] [address] [place], [address] CBC W/Diff, Automatedon 09-0 3-2024 Absolute Lymph 2.57 X10 3/uL Normal 0.83-4.51 [facility] Comment on above: Order Comment: 109-1 Performed By: #### L 100.0100, L500.4100 ####[facility] [address] [place], [address] Absolute Neut 5.9 X10 3/uL Normal 2.0-7.7 [facility] Comment on above: Order Comment: 109-1 Performed By: #### L 100.0100, L500.4100 ####[facility] [address] [place], [address] Basophils/100 WBC (Bld) 0.5 % Normal 0-1 [facility] Comment on above: Order Comment: 109-1 Performed By: #### L 100.0100, L500.4100 ####[facility] [address] [place], [address] Eosinophils/100 WBC (Bld) 0.4 % Normal 0-5 [facility] Comment on above: Order Comment: 109-1 Performed By: #### L 100.0100, L500.4100 ####[facility] [address] [place], [address] Erythrocyte distribution width (RBC) [Ratio] 13.1 % Normal 11.6-14.6 [facility] Comment on above: Order Comment: 109-1 Performed By: #### L 100.0100, L500.4100 ####[facility] [address] [place], [address] Hematocrit (Bld) [Volume fraction] 40.6 % Normal 40-54 [facility] Comment on above: Order Comment: 109-1 Performed By: #### L 100.0100, L500.4100 ####[facility] [address] [place], [address] Hemoglobin (Bld) [Mass/Vol] 13.3 g/dL Normal 13.0-16.5 [facility] Comment on above: Order Comment: 109-1 Performed By: #### L 100.0100, L500.4100 ####[facility] [address] [place], [address] IG% 0.300 Normal 0.0-0.9 [facility] Comment on above: Order Comment: 109-1 Result Comment: IG% - Immature Granulocytes (promyelocytes, myelocytes andmetamyelocytes) > 1% indicates that a LEFT SHIFT is Present. Performed By: #### L 100.0100, L500.4100 ####[facility] [address] [place], [address] Lymphocytes/100 WBC (Bld) 27.0 % Normal 19-41 [facility] Comment on above: Order Comment: 109-1 Performed By: #### L 100.0100, L500.4100 ####[facility] [address] [place], [address] MCH (RBC) [Entitic mass] 30.2 pg Normal 27.0-32.0 [facility] Comment on above: Order Comment: 109-1 Performed By: #### L 100.0100, L500.4100 ####[facility] [address] [place], [address] MCHC (RBC) [Mass/Vol] 32.8 g/dL Normal 32-36 [facility] Comment on above: Order Comment: 109-1 Performed By: #### L 100.0100, L500.4100 ####[facility] [address] [place], [address] MCV (RBC) [Entitic vol] 92.3 fL Normal 80-94 [facility] Comment on above: Order Comment: 109-1 Performed By: #### L 100.0100, L500.4100 ####[facility] [address] [place], [address] Monocytes/100 WBC (Bld) 9.7 % Normal 0-10 [facility] Comment on above: Order Comment: 109-1 Performed By: #### L 100.0100, L500.4100 ####[facility] [address] [place], [address] Neutrophils/100 WBC (Bld) 62.1 % Normal 47-70 [facility] Comment on above: Order Comment: 109-1 Performed By: #### L 100.0100, L500.4100 ####[facility] [address] [place], [address] Nucleated RBC (Bld) [#/Vol] 0 10*3/uL Normal 0-5 [facility] Comment on above: Order Comment: 109-1 Performed By: #### L 100.0100, L500.4100 ####[facility] [address] [place], [address] Platelet mean volume (Bld) [Entitic vol] 12.1 fL High 6.2-12.0 [facility] Comment on above: Order Comment: 109-1 Performed By: #### L 100.0100, L500.4100 ####[facility] [address] [place], [address] Platelets (Bld) [#/Vol] 172 10*3/uL Normal 150-450 [facility] Comment on above: Order Comment: 109-1 Performed By: #### L 100.0100, L500.4100 ####[facility] [address] [place], [address] RBC (Bld) [#/Vol] 4.40 10*6/uL Low 4.6-6.2 [facility] Comment on above: Order Comment: 109-1 Performed By: #### L 100.0100, L500.4100 ####[facility] [address] [place], [address] RDW SD 44.0 fl High 35.1-43.9 [facility] Comment on above: Order Comment: 109-1 Performed By: #### L 100.0100, L500.4100 ####[facility] [address] [place], [address] WBC (Bld) [#/Vol] 9.5 10*3/uL Normal 4.4-11.0 [facility] Comment on above: Order Comment: 109-1 Performed By: #### L 100.0100, L500.4100 ####[facility] [address] [place], [address] Lipid Profileon 01-02-2024 Cholesterol [Mass/Vol] 115 mg/dL Normal 200 [facility] Comment on above: Order Comment: 109-1 Result Comment: <200 mg/dL Desirable 200-240 mg/dL Borderline >240 mg/dL High Risk Performed By: #### L 100.0100, L500.4100 ####[facility] [address] [place], [address] Cholesterol in HDL [Mass/Vol] 24 mg/dL Low [facility] Comment on above: Order Comment: 109-1 Result Comment: The drugs N-Acetylcysteine and Metamizole may falselydepress this assay. Reference Range HDL <40 mg/dL Low HDL Cholesterol HDL >or= 60 mg/dL High HDL Cholesterol Performed By: #### L 100.0100, L500.4100 ####[facility] [address] [place], [address] Cholesterol in LDL [Mass/Vol] 37 mg/dL Normal 0-130 [facility] Comment on above: Order Comment: - Performed By: #### L 100.0100, L500.4100 ####[facility] [address] [place], [address] Cholesterol in VLDL [Mass/Vol] 54 mg/dL High 5-40 [facility] Comment on above: Order Comment: 109-1 Performed By: #### L 100.0100, L500.4100 ####[facility] [address] [place], [address] Triglyceride [Mass/Vol] 271 mg/dL High [facility] Comment on above: Order Comment: 109-1 Result Comment: The drugs N-Acetylcysteine and Metamizole may falselydepress this assay.Serum Triglycerides Reference Interval Normal <150 mg/dL Borderline high 150 - 199 mg/dL High 200 - 499 mg/dL Very High > or = 500 mg/dL Performed By: #### L 100.0100, L500.4100 ####[facility] [address] [place], [address] Progress Noteon 11-22-2023 Progress Note Speech-Language Pathology SPEECH LANGUAGE PATHOLOGY [facility] Modified Barium Swallow Study [...] despite effort. 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 Frequency: Per treating TIN CUTTER Barriers: large osteophytes, bridging with anterior projection [...] MBSS?: No, unable to locate in [facility] Current Diet: Puree diet with ?liquid (no information from [place]) Textures tested: - thin liquid, (cup edge) - mildly thick liquid, (cup edge) - puree, (teaspoon) Patient position: lateral Past Medical History: Past Medical History: Diagnosis Date TREVER (acute kidney injury) ([facility]) ([facility]) Alcohol abuse 07/08/2018 Anxiety C1 spinal cord injury ([facility]) ([facility]) Depression Fall 06/2018 Schizophrenia ([facility]) Past Surgical History: Past Surgical History: Procedure Laterality Date CERVICAL FUSION 07/09/2014 C2-6 cervical fusion GASTROSTOMY TUBE PLACEMENT 07/13/2018 TRACHEOSTOMY 07/13/2018 Admission Diagnosis: Patient Active Problem List Diagnosis Date Noted Respiratory syncytial virus (RSV) 03/22/2021 Hypoxia 03/19/2021 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[facility]) ([facility]) 08/16/2018 Chronic latent schizophrenia ([facility]) 08/15/2018 Prolonged Q-T interval on ECG 08/15/2018 Abdominal wall abscess 08/15/2018 Central cord syndrome ([facility]) ([facility]) 08/15/2018 Respiratory failure after trauma ([facility]) 08/15/2018 Pressure ulcer of sacral region, stage 2 ([facility]) 08/09/2018 Urinary retention 07/28/2018 Acute respiratory failure with hypoxia ([facility]) 07/26/2018 Mild bibasilar atelectasis 07/26/2018 Hospital-acquired pneumonia 07/26/2018 Bilateral pleural effusion 07/26/2018 Ileus ([facility]) ([facility]) 07/23/2018 TREVER (acute kidney injury) ([facility]) 07/23/2018 Hypokalemia 07/21/2018 Vertebral artery occlusion, bilateral 07/11/2018 Vitamin D insufficiency 07/10/2018 Alcohol abuse 07/08/2018 Closed wedge compression fracture of first thoracic vertebra ([facility]) 07/08/2018 Traumatic nondisp spondylolisthesis of C3 vertebra with closed fx, initial encounter ([facility]) 07/08/2018 Closed fracture dislocation of cervical spine ([facility]) 07/08/2018 Pain: Pt denies any current pain. Reason for current admission: Pt with h/o of PEG and trach from 2019. Pt is currently decannulated. 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 Noted very large connective [...] posterior spill (more content not included)... Normal [facility] RF videography Hypopharynx a nd Esophagus Views for swallowing function W speech and W barium contrast Rosalino 11-22-2023 Abnormal findings as described above. Please refer to the speech pathologist 's report for additional details and recommendations. Report Dictated on Electronically Signed By: Nir Cancino MD Electronically Signed Date/Time: 11/22/2023 1:57 PM EDT [facility] Side.Cr SYSTEM [facility] 1955 [id number] Exam Date/Time: 11/22/2023 12:53 Procedure: FL MODIFIED [...] not visualized in this exam for evaluation. [facility] Nir Cancino MD - 11/22/2023 Patient Name: KATHYA HOOPER : 1955 [facility]#: [id number] Exam Date/Time: 11/22/2023 12:53 Procedure: FL MODIFIED [...] Electronically Signed Date/Time: 11/22/2023 1:57 PM EDT [facility] Radiology Study observation (narrative) [facility] RF videography Hypopharynx a nd Esophagus Views for swallowing function W speech and W barium contrast POOrdered By: Nir Cancino on 11-22-2023 [facility] Work Phone: CBC W Auto Differential pane l (Bld)on 10-02-2023 Basophils (Bld) [#/Vol] 0.0 10*3/uL 0.0 - 0.2 10*3/uL [facility] Basophils/100 WBC (Bld) 0.3 % 0.0 - 2.0 % [facility] Eosinophils (Bld) [#/Vol] 0.0 10*3/uL 0.0 - 0.5 10*3/uL [facility] Eosinophils/100 WBC (Bld) 0.0 % 0.0 - 6.0 % [facility] Erythrocyte distribution width (RBC) [Ratio] 13.0 % 11.5 - 15.0 % [facility] Hematocrit (Bld) [Volume fraction] 37.8 % Low 40.0 - 52.0 % [facility] Hemoglobin (Bld) [Mass/Vol] 13.0 g/dL 13.0 - 18.0 g/dL [facility] Immature granulocytes (Bld) [#/Vol] 0.1 10*3/uL High NINF - 0.1 10*3/uL [facility] Immature granulocytes/100 WBC (Bld) 0.5 % 0.0 - 2.0 % [facility] Interpretation and review of laboratory results Abnormal [facility] Lymphocytes (Bld) [#/Vol] 0.9 10*3/uL Low 1.0 - 4.3 10*3/uL [facility] Lymphocytes/100 WBC (Bld) 8.4 % Low 15.0 - 45.0 % [facility] MCH (RBC) [Entitic mass] 30.3 pg 26.0 - 34.0 pg [facility] MCHC (RBC) [Mass/Vol] 34.4 % 30.5 - 36.0 % [facility] MCV (RBC) [Entitic vol] 88.1 fL 77.0 - 99.0 fL [facility] Monocytes (Bld) [#/Vol] 0.9 10*3/uL 0.0 - 0.9 10*3/uL [facility] Monocytes/100 WBC (Bld) 8.2 % 5.0 - 13.0 % [facility] Neutrophils (Bld) [#/Vol] 8.9 10*3/uL High 1.8 - 7.5 10*3/uL [facility] Neutrophils/100 WBC (Bld) 82.6 % High 38.0 - 82.0 % [facility] Nucleated RBC/100 WBC (Bld) [Ratio] 0.0 % [facility] Platelet mean volume (Bld) [Entitic vol] 10.7 fL 9.0 - 12.7 fL [facility] Platelets (Bld) [#/Vol] 148 10*3/uL 140 - 440 10*3/uL [facility] RBC (Bld) [#/Vol] 4.29 10*6/uL Low 4.40 - 5.9 0 10*6/uL [facility] WBC (Bld) [#/Vol] 10.7 10*3/uL 3.6 - 10.7 10*3/uL [facility] CBC WITH AUTO DIFFERENTIALon 10-02-2023 Basophils (Bld) [#/Vol] 0.0 10*3/uL Normal 0.0-0.2 [facility] Comment on above: Performed By: #### L [id number] #### Diesel Maintenance Electrician: CYNDI LILLY ([id number]) [facility] [place] [facility] [address] Basophils/100 WBC (Bld) 0.3 % Normal 0.0-2.0 [facility] Comment on above: Performed By: #### L [id number] #### Diesel Maintenance Electrician: CYNDI LILLY ([id number]) [facility] [place] ([facility]) [address] Eosinophils (Bld) [#/Vol] 0.0 10*3/uL Normal 0.0-0.5 [facility] Comment on above: Performed By: #### L [id number] #### Diesel Maintenance Electrician: CYNDI LILLY ([id number]) [facility] [place] (SBHLAB) [address] Eosinophils/100 WBC (Bld) 0.0 % Normal 0.0-6.0 [facility] Comment on above: Performed By: #### L [id number] #### Diesel Maintenance Electrician: CYNDI LILLY ([id number]) [facility] [place] (SBHL[facility]) [address] Erythrocyte distribution width (RBC) [Ratio] 13.0 % Normal 11.5-15.0 [facility] Comment on above: Performed By: #### L [id number] #### Diesel Maintenance Electrician: CYNDI LILLY ([id number]) [facility] [place] (SBHL[facility]) [address] Hematocrit (Bld) [Volume fraction] 37.8 % Low 40.0-52.0 [facility] Comment on above: Performed By: #### L [id number] #### Diesel Maintenance Electrician: CYNDI LILLY ([id number]) [facility] (SBHLAB) [address] Hemoglobin (Bld) [Mass/Vol] 13.0 g/dL Normal 13.0-18.0 [facility] Comment on above: Performed By: #### L [id number] #### Diesel Maintenance Electrician: CYNDI LILLY ([id number]) [facility] [address] IMMATURE GRANS % 0.5 % Normal 0.0-2.0 [facility] Comment on above: Performed By: #### L [id number] #### Diesel Maintenance Electrician: CYNDI LILLY ([id number]) [facility] [address] IMMATURE GRANS ABSOLUTE 0.1 10*3/uL High <0.1 [facility] Comment on above: Performed By: #### L [id number] #### Diesel Maintenance Electrician: CYNDI LILLY ([id number]) [facility] [address] Lymphocytes (Bld) [#/Vol] 0.9 10*3/uL Low 1.0-4.3 [facility] Comment on above: Performed By: #### L [id number] #### Diesel Maintenance Electrician: CYDNI LILLY ([id number]) [facility] (SBAB) [address] Lymphocytes/100 WBC (Bld) 8.4 % Low 15.0-45.0 [facility] Comment on above: Performed By: #### L [id number] #### Diesel Maintenance Electrician: CYNDI LILLY ([id number]) [facility] [address] MCH (RBC) [Entitic mass] 30.3 pg Normal 26.0-34.0 [facility] Comment on above: Performed By: #### L [id number] #### Diesel Maintenance Electrician: CYNDI LILLY ([id number]) [facility] [place] (SBHLAB) [address] MCHC 34.4 % Normal 30.5-36.0 [facility] Comment on above: Performed By: #### L [id number] #### Diesel Maintenance Electrician: CYNDI LILLY ([id number]) [facility] [place] (SBHL[facility]) [address] MCV (RBC) [Entitic vol] 88.1 fL Normal 77.0-99.0 [facility] Comment on above: Performed By: #### L [id number] #### Diesel Maintenance Electrician: CYNDI LILLY ([id number]) [facility] [place] (SBHLAB) [address] Monocytes (Bld) [#/Vol] 0.9 10*3/uL Normal 0.0-0.9 [facility] Comment on above: Performed By: #### L [id number] #### Diesel Maintenance Electrician: CYNDI LILLY ([id number]) [facility] [place] (SBHL[facility]) [address] Monocytes/100 WBC (Bld) 8.2 % Normal 5.0-13.0 [facility] Comment on above: Performed By: #### L [id number] #### Diesel Maintenance Electrician: CYNDI LILLY ([id number]) [facility] [place] (SBHL[facility]) [address] NEUTROPHILS ABSOLUTE 8.9 10*3/uL High 1.8-7.5 [facility] Comment on above: Performed By: #### L [id number] #### Diesel Maintenance Electrician: CYNDI LILLY ([id number]) [facility] [place] (SBHLAB) [address] [place] [address] [place] Neutrophils/100 WBC (Bld) 82.6 % High 38.0-82.0 [facility] Comment on above: Performed By: #### L [id number] #### Diesel Maintenance Electrician: CYNDI LILLY ([id number]) [facility] [place] (SB[facility]) [address] NRBC 0.0 /100 WBCs Normal 0.0-2.0 [facility] Comment on above: Performed By: #### L [id number] #### Diesel Maintenance Electrician: CYNDI LILLY ([id number]) [facility] ([facility]) [address] Platelet mean volume (Bld) [Entitic vol] 10.7 fL Normal 9.0-12.7 [facility] Comment on above: Performed By: #### L [id number] #### Diesel Maintenance Electrician: CYNDI LILLY ([id number]) [facility] (SBHL[facility]) [address] [place] [address] [place] Platelets (Bld) [#/Vol] 148 10*3/uL Normal 140-440 [facility] Comment on above: Performed By: #### L [id number] #### Diesel Maintenance Electrician: CYNDI LILLY ([id number]) [facility] ([facility]) [address] RBC (Bld) [#/Vol] 4.29 10*6/uL Low 4.40-5.90 [facility] Comment on above: Performed By: #### L [id number] #### Diesel Maintenance Electrician: CYNDI LILLY ([id number]) [facility] (SBHL[facility]) [address] [place] [address] [place] WBC (Bld) [#/Vol] 10.7 10*3/uL Normal 3.6-10.7 [facility] Comment on above: Performed By: #### L [id number] #### Diesel Maintenance Electrician: CYNDI LILLY ([id number]) [facility] [address] COMPREHENSIVE METABOLIC PANE Reji 10-02-2023 Albumin [Mass/Vol] 3.7 g/dL Normal 3.5-5.0 [facility] Comment on above: Performed By: #### Alban AB17, [id number] ####Diesel Maintenance Electrician: CYNDI LILLY ([id number])[facility] [place] (SBHLAB)[address] ALP [Catalytic activity/Vol] 78 U/L Normal 38-126 [facility] Comment on above: Performed By: #### L AB17, [id number] ####Diesel Maintenance Electrician: CYNDI LILLY ([id number])[facility] (SBHLAB)[address] ALT [Catalytic activity/Vol] 21 U/L Normal 0-49 [facility] Comment on above: Performed By: #### Alban AB17, [id number] ####Diesel Maintenance Electrician: CYNDI LILLY ([id number])[facility] (SBHLAB)[address] Anion gap [Moles/Vol] 10 mmol/L Normal 3-13 [facility] Comment on above: Performed By: #### L AB17, [id number] ####Diesel Maintenance Electrician: CYNDI LILLY ([id number])[facility] (SBHLAB)[address] AST [Catalytic activity/Vol] 29 U/L Normal 15-46 [facility] Comment on above: Performed By: #### L AB17, [id number] ####Diesel Maintenance Electrician: CYNDI LILLY ([id number])[facility] [place] (SBHLAB)[address] Bilirubin [Mass/Vol] 1.1 mg/dL Normal 0.2-1.3 [facility] Comment on above: Performed By: #### L AB17, [id number] ####Diesel Maintenance Electrician: CYNDI LILLY ([id number])[facility] [place] ([place])[address] Calcium [Mass/Vol] 7.8 mg/dL Low 8.4-10.4 [facility] Comment on above: Performed By: #### Alban YEH17, [id number] ####Diesel Maintenance Electrician: CYNDI LILLY ([id number])[facility] (SBHLAB)[address] Chloride [Moles/Vol] 102 mmol/L Normal 98-107 [facility] Comment on above: Performed By: #### Alban SMITH, [id number] ####Diesel Maintenance Electrician: CYNDI LILLY ([id number])[facility] (SB[facility])[address] CO2 [Moles/Vol] 23 mmol/L Normal 22-30 [facility] Comment on above: Performed By: #### Alban SMITH, [id number] ####Diesel Maintenance Electrician: CYNDI LILLY ([id number])[facility] (SBHL[facility])[address] Creatinine [Mass/Vol] 0.58 mg/dL Low 0.66-1.25 [facility] Comment on above: Performed By: #### Alban YEH17, [id number] ####Diesel Maintenance Electrician: CYNDI LILLY ([id number])[facility] (SBHLAB)[address] GLOMERULAR FILTRATION RATE ML/MIN/1.73 SQ M.PREDICTED >90.0 Normal >60.0 [facility] Comment on above: Result Comment: Calc ulation based on the Chronic Kidney Disease Epidemiology Collaboration (CKD-EPI) equation refit without adjustment for race Performed By: #### Alban YEH17, [id number] ####Diesel Maintenance Electrician: CYNDI LILLY ([id number])[facility] (SBHL[facility])[address] Glucose [Mass/Vol] 111 mg/dL High 70-100 [facility] Comment on above: Performed By: #### L AB17, [id number] ####Diesel Maintenance Electrician: CYNDI LILLY ([id number])[facility] [place] (SBHLAB)[address] Potassium [Moles/Vol] 4.0 mmol/L Normal 3.5-5.1 [facility] Comment on above: Performed By: #### L AB17, [id number] ####Diesel Maintenance Electrician: CYNDI LILLY ([id number])[facility] (SBHLAB)[address] Protein [Mass/Vol] 6.5 g/dL Normal 6.3-8.2 [facility] Comment on above: Performed By: #### L AB17, [id number] ####Diesel Maintenance Electrician: CYNDI LILLY ([id number])[facility] ([facility] [place] [address] Sodium [Moles/Vol] 135 mmol/L Normal 135-145 [facility] Comment on above: Performed By: #### L AB17, [id number] ####Diesel Maintenance Electrician: CYNDI LILLY ([id number])[facility] ([facility])[address] [place] [address] Urea nitrogen [Mass/Vol] 18 mg/dL Normal 9-20 [facility] Comment on above: Performed By: #### L AB17, [id number] ####Diesel Maintenance Electrician: CYNDI LILLY ([id number])[facility] ([facility] [place] [address] CT HEAD WO IV CONTRASTon CT HEAD WO IV CONTRAST Patient Name: [facility]ATH[facility] YU : 1955 [id number] Exam Date/Time: 10/02/2023 11:03 Procedure: CT HEAD WO IV CONTRAST Ordering Provider: TOLEDO AMY Reason For Exam: Neuro deficit, acute, stroke suspected EXAMINATION: CT HEAD WO IV CONTRAST HISTORY: Neuro deficit, acute, stroke suspected - - - - - [id number] - - - - TECHNIQUE: CT head [...] has seen him for that day, night monitor did not report any problems. EMS states [...] has no complaints at this time. Normal [facility] CT Head WO contraston [address] evidence of an acute intracranial abnormality. Report Dictated on Electronically Signed By: Maria Eugenia Ruiz MD Electronically Signed Date/Time: 10/02/2023 11:09 AM T [facility] Patient Name: KATHYA HOOPER : 1955 [id number] Exam Date/Time: 10/02/2023 11:03 Procedure: CT HEAD WO IV CONTRAST Ordering Provider: TOLEDO AMY Reason For Exam: Neuro deficit, acute, stroke suspected EXAMINATION: CT HEAD WO IV CONTRAST HISTORY: Neuro deficit, acute, stroke suspected - - - - - [id number] - - - - TECHNIQUE: CT head [...] stroke suspected - - - - - [id number] - - - - TECHNIQUE: CT head [...] Electronically Signed Date/Time: 10/02/2023 11:09 AM EDT [facility] RunAlong Radiology Study observation (narrative) [facility] He alth CT Head WO contrastOrdered B y: Maria Eugneia Ruiz on 10-02-2023 [employer] Work Phone: Comprehensive metabolic 1998 panelon 10-02-2023 Albumin [Mass/Vol] 3.7 g/dL 3.5 - 5.0 g/dL [facility] ALP [Catalytic activity/Vol] 78 U/L 38 - 126 U/L [facility] ALT [Catalytic activity/Vol] 21 U/L 0 - 49 U/L [facility] Anion gap [Moles/Vol] 10 mmol/L 3 - 13 mmol/L [facility] AST [Catalytic activity/Vol] 29 U/L 15 - 46 U/L [facility] Bilirubin [Mass/Vol] 1.1 mg/dL 0.2 - 1 .3 mg/dL [facility] Calcium [Mass/Vol] 7.8 mg/dL Low 8.4 - 10. 4 mg/dL [facility] Chloride [Moles/Vol] 102 mmol/L 98 - 10 7 mmol/L [facility] CO2 [Moles/Vol] 23 mmol/L 22 - 30 mmol/L [facility] Creatinine [Mass/Vol] 0.58 mg/dL Low 0.66 - 1.25 mg/dL [facility] GFR/1.73 sq M.predicted MDRD (S/P/Bld) [Vol rate/Area] - PINF [facility] Comment on above: Calculation based on the Chronic Kidney Disease Epidemiology Collaboration (CKD-EPI) equation refit without adjustment for race Glucose [Mass/Vol] 111 mg/dL High 70 - 100 mg/dL [facility] Interpretation and review of laboratory results Abnormal [facility] Potassium [Moles/Vol] 4.0 mmol/L 3.5 - 5.1 mmol/L [facility] Protein [Mass/Vol] 6.5 g/dL 6.3 - 8.2 g/dL [facility] Sodium [Moles/Vol] 135 mmol/L 135 - 145 mmol/L [facility] Urea nitrogen [Mass/Vol] 18 mg/dL 9 - 20 mg/dL [facility] ECG 12-LEADon 10-02-2023 ECG 12-LEAD IMPRESSION: Sinus tachycardia Left bundle branch block ST elevation secondary to IVCD Electronically Signed On 10-02-2023 12:40:15 EDT by Fei Farooq ED Nursing Noteon 10-02-2023 ED Nursing Note [facility] at bedside at this time Mami Lantigua RN 10/02/23 3660 Normal [facility] ED Nursing Note This RN gave report to Marnie at [facility] at this time Mami Lantigua RN 10/02/23 1358 Normal [facility] ED Nursing Note This RN went to evaluate patient, was on 2L o2 and does not wear at baseline, plan is dc, this RN turned o2 off to trial patient, spo2 monitor on Mami Lantigua RN 10/02/23 1325 Normal [facility] ED Nursing Note Pt to ct via cart Eloisa Alfaro RN 10/02/23 1043 Normal [facility] ED Nursing Note Pt was brought in vi a [place] [facility] from [facility] for Left sided facial droop. Per EMS nurse is new and does not know patient very well but he is A&O x 2 at baseline. Per EMS the nurse states it was 20 mins ago. Contacted nurse that was caring for him and she states that was the first time she has seen him for that day, night monitor did not report any problems. EMS states [...] facility. Hx of schizophrenia. BS 131. Normal [facility] ED Provider Noteon ED Provider Note [facility] ED eMERGENCY dEPARTMENT eNCOUnter [...] to the emergency department from a local senior living facility where he is currently a resident. [...] History: Diagnosis Date TREVER (acute kidney injury) ([facility]) ([facility]) Alcohol abuse 07/08/2018 Anxiety C1 spinal cord injury ([facility]) ([facility]) Depression Fall 06/2018 Schizophrenia ([facility]) SURGICALHISTORY Past Surgical History: Procedure [...] EmergencyPhysician): Interpret (more content not included)... Normal [facility] ED Provider Note Emergency Department Encounter [facility] ED Patient: Kathya Hooper [...] Solutions Fei Farooq MD 10/02/23 1129 Normal [facility] Laboratory - Chemistry and C hemistry - challengeon 10-02-2023 Troponin I.cardiac [Mass/Vol] ng/mL NINF - 0.034 ng/mL [facility] Laboratory - Coagulationon 0 10-02-2023 aPTT Coag (PPP) [Time] 29.6 s 20.0 - 30.5 s [facility] INR Coag (PPP) [Relative time] 1.1 {INR} 0.9 - 1.1 [facility] Comment on above: Recommended Anticoag ulant [...] s 9.0 - 12.0 s [facility] No Panel Informationon 10-01 Heart Rate 103 bpm [facility] P [place] 48 degrees [facility] ID Interval 172 ms [facility] QRS [place] -38 degrees [facility] QRSD Interval 159 ms [facility]alt [facility] QT Interval 405 ms [facility] QTC Interval 532 ms [facility] T Wave [place] 109 degrees [facility] Sinus tachycardia Left bundle branch block ST elevation secondary to IVCD Electronically Signed On 10-02-2023 12:40:15 EDT by Fei Farooq CV Fei Lopez MD - 10/02/2023 IMPRESSION: Sinus tachycardia Left bundle branch block ST elevation secondary to IVCD Electronically Signed On 10-02-2023 12:40:15 EDT by Fei Farooq [facility] Interpretation and review of laboratory results Normal [facility] PROTIME AND APTTon aPTT Coag (Bld) [Time] 29.6 s Normal 20.0-30.5 [facility] Comment on above: Performed By: #### L [id number] ####Diesel Maintenance Electrician: CYNDI LILLY ([id number])[facility] ([facility])[address] INR Coag (PPP) [Relative time] 1.1 {INR} Normal 0.9-1.1 [facility] Comment on above: Result Comment: [...] to prevent Myocardial Infarction Performed By: #### Alban [id number] ####Diesel Maintenance Electrician: CYNDI LILLY ([id number])[facility] ([facility])[address] [place] [address] PT Coag (PPP) [Time] 11.6 s Normal 9.0-12.0 [facility] Comment on above: Performed By: #### L [id number] ####Diesel Maintenance Electrician: CYNDI LILLY ([id number])[facility] ([facility])[address] [place] [address] TROPONIN, WITH SERIAL REFLEX on 10-02-2023 Troponin I.cardiac [Mass/Vol] ng/mL Normal <0.034 [facility] Comment on above: Result Comment: SHARON Stevens COMMENTS: Patients with high levels of Biotin oral intake (ie >5 mg/day) may have falsely decreased Troponin levels. Performed By: #### L AB17, [id number] ####Diesel Maintenance Electrician: CYNDI LILLY ([id number])[facility] ([facility])[address] [place] [address] Troponin I.cardiac [Mass/Vol ]on 10-02-2023 Interpretation and review of laboratory results Normal [facility] Patients with high levels of Biotin oral intake (ie >5 mg/day) may have falsely decreased Troponin levels. [facility] XR Chest Single viewon 10-01 No acute cardiopulmonary disease. Report Dictated on Electronically Signed By: Maria Eugenia Ruiz MD Electronically Signed Date/Time: 10/02/2023 11:06 AM EDT [facility] Patient Name: KATHYA HOOPER : 1955 [...] spine and shoulders. No acute osseous findings. [facility] Maria Eugenia Ruiz MD - 10/02/2023 Patient [...] Signed Date/Time: 10/02/2023 11:06 AM EDT [facility] Radiology Study observation (narrative) [facility] Absolute lymphocyte countOrd ered By: Renard Burgos on 08-07-2023 Lymphocytes Auto (Unsp spec) [#/Vol] 2.23 10*3/uL 0.83-4.51 [facility] Automated lymphocyte count a s percentage of total leukocytesOrdered By: Renard Burgos on 08-07-2023 Lymphocytes/100 WBC Auto (Unsp spec) 23.9 % 19-41 [facility] Basophil percentageOrdered B y: Renard Burgos on 08-07-2023 Basophils/100 WBC (Bld) 0.4 % 0-1 [facility] Eosinophils/100 WBC (Bld) 0.4 % 0-5 [facility] Hemoglobin (Bld) [Mass/Vol] 13.9 g/dL 13.0-16.5 [facility] Monocytes/100 WBC (Bld) 8.0 % 0-10 [facility] Neutrophils (Bld) [#/Vol] 6.2 10*3/uL 2.0-7.7 [facility] Neutrophils/100 WBC (Bld) 66.9 % 47-70 [facility] WBC (Bld) [#/Vol] 9.3 10*3/uL 4.4-11.0 [facility] Determination of erythrocyte mean corpuscular volume (MCV)Ordered By: Renard Burgos on 08-07-2023 MCV (RBC) [Entitic vol] 90.0 fL 80-94 [facility] Erythrocyte distribution wid th ratioOrdered By: Renard Burgos on 08-07-2023 Erythrocyte distribution width (RBC) [Ratio] 13.0 % 11.6-14.6 [facility] Erythrocyte distribution wid th standard deviationOrdered By: Renard Burgos on 08-07-2023 Erythrocyte distribution width (RBC) [Entitic vol] 42.5 fL 35.1-43.9 [facility] Hematocrit Auto (Bld) [Volum e fraction]Ordered By: Renard Burgos on 08-07-2023 Hematocrit (Bld) [Volume fraction] 42.5 % 40-54 [facility] Immature granulocytes/100 WB C Auto (Bld)Ordered By: Renard Burgos on 08-07-2023 Immature granulocytes/100 WBC (Bld) 0.400 % 0.0-0.9 [facility] Comment on above: IG% - Immature Granu locytes (promyelocytes, myelocytes and metamyelocytes) > 1% indicates that a LEFT SHIFT is Present. Laboratory - Hematology and Cell countsOrdered By: Renard Burgos on 08-07-2023 MCH (RBC) [Entitic mass] 29.4 pg 27.0-32.0 [facility] MCHC (RBC) [Mass/Vol] 32.7 g/dL 32-36 [facility] Nucleated RBC/100 WBC (Bld) [Ratio] 0 % 0-5 [facility] Platelet mean volume (Bld) [Entitic vol] 10.7 fL 6.2-12.0 [facility] Platelets (Bld) [#/Vol] 210 10*3/uL 150-450 [facility] RBC Auto (Bld) [#/Vol]Ordere d By: Renard Burgos on 08-07-2023 RBC (Bld) [#/Vol] 4.72 10*6/uL 4.6-6.2 [facility] Absolute lymphocyte countOrd ered By: Renard Burgos on 07-31-2023 Lymphocytes Auto (Unsp spec) [#/Vol] 2.04 10*3/uL 0.83-4.51 [facility] Automated lymphocyte count a s percentage of total leukocytesOrdered By: Renard Burgos on 07-31-2023 Lymphocytes/100 WBC Auto (Unsp spec) 24.2 % 19-41 [facility] Basophil percentageOrdered B y: Renard Burgos on 07-31-2023 Basophils/100 WBC (Bld) 0.6 % 0-1 [facility] Eosinophils/100 WBC (Bld) 0.6 % 0-5 [facility] Hemoglobin (Bld) [Mass/Vol] 13.9 g/dL 13.0-16.5 [facility] Monocytes/100 WBC (Bld) 8.5 % 0-10 [facility] Neutrophils (Bld) [#/Vol] 5.5 10*3/uL 2.0-7.7 [facility] Neutrophils/100 WBC (Bld) 65.7 % 47-70 [facility] WBC (Bld) [#/Vol] 8.4 10*3/uL 4.4-11.0 [facility] Determination of erythrocyte mean corpuscular volume (MCV)Ordered By: Renard Burgos on 07-31-2023 MCV (RBC) [Entitic vol] 89.7 fL 80-94 [facility] Erythrocyte distribution wid th ratioOrdered By: Renard Burgos on 07-31-2023 Erythrocyte distribution width (RBC) [Ratio] 12.8 % 11.6-14.6 [facility] Erythrocyte distribution wid th standard deviationOrdered By: Renard Burgos on 07-31-2023 Erythrocyte distribution width (RBC) [Entitic vol] 42.2 fL 35.1-43.9 [facility] Hematocrit Auto (Bld) [Volum e fraction]Ordered By: Renard Burgos on 07-31-2023 Hematocrit (Bld) [Volume fraction] 41.7 % 40-54 [facility] Immature granulocytes/100 WB C Auto (Bld)Ordered By: Renard Burgos on 07-31-2023 Immature granulocytes/100 WBC (Bld) 0.400 % 0.0-0.9 [facility] Comment on above: IG% - Immature Granu locytes (promyelocytes, myelocytes and metamyelocytes) > 1% indicates that a LEFT SHIFT is Present. Laboratory - Hematology and Cell countsOrdered By: Renard Burgos on 07-31-2023 MCH (RBC) [Entitic mass] 29.9 pg 27.0-32.0 [facility] MCHC (RBC) [Mass/Vol] 33.3 g/dL 32-36 [facility] Nucleated RBC/100 WBC (Bld) [Ratio] 0 % 0-5 [facility] Platelet mean volume (Bld) [Entitic vol] 10.6 fL 6.2-12.0 [facility] Platelets (Bld) [#/Vol] 201 10*3/uL 150-450 [facility] RBC Auto (Bld) [#/Vol]Ordere d By: Renard Burgos on 07-31-2023 RBC (Bld) [#/Vol] 4.65 10*6/uL 4.6-6.2 [facility] Absolute lymphocyte countOrd ered By: Renard Burgos on 07-24-2023 Lymphocytes Auto (Unsp spec) [#/Vol] 2.00 10*3/uL 0.83-4.51 [facility] Automated lymphocyte count a s percentage of total leukocytesOrdered By: Renard Burgos on 07-24-2023 Lymphocytes/100 WBC Auto (Unsp spec) 26.2 % 19-41 [facility] Basophil percentageOrdered B y: Renard Burgos on 07-24-2023 Basophils/100 WBC (Bld) 0.7 % 0-1 [facility] Eosinophils/100 WBC (Bld) 0.7 % 0-5 [facility] Hemoglobin (Bld) [Mass/Vol] 14.2 g/dL 13.0-16.5 [facility] Monocytes/100 WBC (Bld) 6.4 % 0-10 [facility] Neutrophils (Bld) [#/Vol] 5.0 10*3/uL 2.0-7.7 [facility] Neutrophils/100 WBC (Bld) 65.6 % 47-70 [facility] WBC (Bld) [#/Vol] 7.6 10*3/uL 4.4-11.0 [facility] Determination of erythrocyte mean corpuscular volume (MCV)Ordered By: Renard Burgos on 07-24-2023 MCV (RBC) [Entitic vol] 89.8 fL 80-94 [facility] Erythrocyte distribution wid th ratioOrdered By: Renard Burgos on 07-24-2023 Erythrocyte distribution width (RBC) [Ratio] 12.8 % 11.6-14.6 [facility] Erythrocyte distribution wid th standard deviationOrdered By: Renard Burgos on 07-24-2023 Erythrocyte distribution width (RBC) [Entitic vol] 42.0 fL 35.1-43.9 [facility] Hematocrit Auto (Bld) [Volum e fraction]Ordered By: Renard Burgos on 07-24-2023 Hematocrit (Bld) [Volume fraction] 43.3 % 40-54 [facility] Immature granulocytes/100 WB C Auto (Bld)Ordered By: Renard Burgos on 07-24-2023 Immature granulocytes/100 WBC (Bld) 0.400 % 0.0-0.9 [facility] Comment on above: IG% - Immature Granu locytes (promyelocytes, myelocytes and metamyelocytes) > 1% indicates that a LEFT SHIFT is Present. Laboratory - Hematology and Cell countsOrdered By: Renard Burgos on 07-24-2023 MCH (RBC) [Entitic mass] 29.5 pg 27.0-32.0 [facility] MCHC (RBC) [Mass/Vol] 32.8 g/dL 32-36 [facility] Nucleated RBC/100 WBC (Bld) [Ratio] 0 % 0-5 [facility] Platelet mean volume (Bld) [Entitic vol] 11.0 fL 6.2-12.0 [facility] Platelets (Bld) [#/Vol] 215 10*3/uL 150-450 [facility] RBC Auto (Bld) [#/Vol]Ordere d By: Renard Burgos on 07-24-2023 RBC (Bld) [#/Vol] 4.82 10*6/uL 4.6-6.2 [facility] Absolute lymphocyte countOrd ered By: Renard Burgos on 07-17-2023 Lymphocytes Auto (Unsp spec) [#/Vol] 2.22 10*3/uL 0.83-4.51 [facility] Automated lymphocyte count a s percentage of total leukocytesOrdered By: Renard Burgos on 07-17-2023 Lymphocytes/100 WBC Auto (Unsp spec) 25.4 % 19-41 [facility] Basophil percentageOrdered B y: Renard Burgos on 07-17-2023 Basophils/100 WBC (Bld) 0.5 % 0-1 [facility] Cholesterol [Mass/Vol] 126 mg/dL <200 [facility] Comment on above: <200 mg/dL Desirable 200-240 mg/dL Borderline >240 mg/dL High Risk Eosinophils/100 WBC (Bld) 0.6 % 0-5 [facility] Hemoglobin (Bld) [Mass/Vol] 14.0 g/dL 13.0-16.5 [facility] Monocytes/100 WBC (Bld) 6.6 % 0-10 [facility] Neutrophils (Bld) [#/Vol] 5.8 10*3/uL 2.0-7.7 [facility] Neutrophils/100 WBC (Bld) 66.4 % 47-70 [facility] Triglyceride [Mass/Vol] 176 mg/dL <199 [facility] Comment on above: The drugs N-Acetylcy steine and Metamizole may falsely depress this assay.Serum Triglycerides Reference Interval Normal <150 mg/dL Borderline high 150 - 199 mg/dL High 200 - 499 mg/dL Very High > or = 500 mg/dL WBC (Bld) [#/Vol] 8.7 10*3/uL 4.4-11.0 [facility] Determination of erythrocyte mean corpuscular volume (MCV)Ordered By: Renard Burgos on 07-17-2023 MCV (RBC) [Entitic vol] 90.5 fL 80-94 [facility] Erythrocyte distribution wid th ratioOrdered By: Renard Burgos on 07-17-2023 Erythrocyte distribution width (RBC) [Ratio] 12.4 % 11.6-14.6 [facility] Erythrocyte distribution wid th standard deviationOrdered By: Renard Burgos on 07-17-2023 Erythrocyte distribution width (RBC) [Entitic vol] 41.1 fL 35.1-43.9 [facility] Hematocrit Auto (Bld) [Volum e fraction]Ordered By: Renard Burgos on 07-17-2023 Hematocrit (Bld) [Volume fraction] 42.8 % 40-54 [facility] Immature granulocytes/100 WB C Auto (Bld)Ordered By: Renard Burgos on 07-17-2023 Immature granulocytes/100 WBC (Bld) 0.500 % 0.0-0.9 [facility] Comment on above: IG% - Immature Granu locytes (promyelocytes, myelocytes and metamyelocytes) > 1% indicates that a LEFT SHIFT is Present. Laboratory - Chemistry and C hemistry - challengeOrdered By: Renard Burgos on 07-17-2023 Cholesterol in HDL [Mass/Vol] 28 mg/dL >40 [facility] Comment on above: The drugs N-Acetylcy steine and Metamizole may falsely depress this assay. Reference Range HDL <40 mg/dL Low HDL Cholesterol HDL >or= 60 mg/dL High HDL Cholesterol Cholesterol in LDL [Mass/Vol] 63 mg/dL 0-130 [facility] Laboratory - Hematology and Cell countsOrdered By: Renard Burgos on 07-17-2023 MCH (RBC) [Entitic mass] 29.6 pg 27.0-32.0 [facility] MCHC (RBC) [Mass/Vol] 32.7 g/dL 32-36 [facility] Nucleated RBC/100 WBC (Bld) [Ratio] 0 % 0-5 [facility] Platelet mean volume (Bld) [Entitic vol] 10.9 fL 6.2-12.0 [facility] Platelets (Bld) [#/Vol] 193 10*3/uL 150-450 [facility] No Panel InformationOrdered By: Renard Burgos on 07-17-2023 Vitamin D 25-Hydroxy 33.1 ng/mL [facility] Comment on above: Vitamin D 25(OH) Sta tus Range Deficiency <20 ng/mL (50nmol/L) Insufficiency 20 - 30 ng/mL (50 - 75 nmol/L) Sufficiency 30 - 100 ng/mL (75 - 250 nmol/L) Toxicity >100 ng/mL (>250 nmol/L) VLDL Cholesterol 35 mg/dL 5-40 [facility] RBC Auto (Bld) [#/Vol]Ordere d By: Renard Burgos on 07-17-2023 RBC (Bld) [#/Vol] 4.73 10*6/uL 4.6-6.2 [facility] Absolute lymphocyte countOrd ered By: Renard Burgos on 07-10-2023 Lymphocytes Auto (Unsp spec) [#/Vol] 2.14 10*3/uL 0.83-4.51 [facility] Automated lymphocyte count a s percentage of total leukocytesOrdered By: Renard Burgos on 07-10-2023 Lymphocytes/100 WBC Auto (Unsp spec) 24.7 % 19-41 [facility] Basophil percentageOrdered B y: Renard Burgos on 07-10-2023 Basophils/100 WBC (Bld) 0.3 % 0-1 [facility] Eosinophils/100 WBC (Bld) 0.3 % 0-5 [facility] Hemoglobin (Bld) [Mass/Vol] 13.8 g/dL 13.0-16.5 [facility] Monocytes/100 WBC (Bld) 7.8 % 0-10 [facility] Neutrophils (Bld) [#/Vol] 5.8 10*3/uL 2.0-7.7 [facility] Neutrophils/100 WBC (Bld) 66.4 % 47-70 [facility] WBC (Bld) [#/Vol] 8.7 10*3/uL 4.4-11.0 [facility] Determination of erythrocyte mean corpuscular volume (MCV)Ordered By: Renard Burgos on 07-10-2023 MCV (RBC) [Entitic vol] 88.9 fL 80-94 [facility] Erythrocyte distribution wid th ratioOrdered By: Renard Burgos on 07-10-2023 Erythrocyte distribution width (RBC) [Ratio] 12.6 % 11.6-14.6 [facility] Erythrocyte distribution wid th standard deviationOrdered By: Renard Burgos on 07-10-2023 Erythrocyte distribution width (RBC) [Entitic vol] 40.6 fL 35.1-43.9 [facility] Hematocrit Auto (Bld) [Volum e fraction]Ordered By: Renard Burgos on 07-10-2023 Hematocrit (Bld) [Volume fraction] 41.0 % 40-54 [facility] Immature granulocytes/100 WB C Auto (Bld)Ordered By: Renard Burgos on 07-10-2023 Immature granulocytes/100 WBC (Bld) 0.500 % 0.0-0.9 [facility] Comment on above: IG% - Immature Granu locytes (promyelocytes, myelocytes and metamyelocytes) > 1% indicates that a LEFT SHIFT is Present. Laboratory - Hematology and Cell countsOrdered By: Renard Burgos on 07-10-2023 MCH (RBC) [Entitic mass] 29.9 pg 27.0-32.0 [facility] MCHC (RBC) [Mass/Vol] 33.7 g/dL 32-36 [facility] Nucleated RBC/100 WBC (Bld) [Ratio] 0 % 0-5 [facility] Platelet mean volume (Bld) [Entitic vol] 11.0 fL 6.2-12.0 [facility] Platelets (Bld) [#/Vol] 215 10*3/uL 150-450 [facility] RBC Auto (Bld) [#/Vol]Ordere d By: Renard Burgos on 07-10-2023 RBC (Bld) [#/Vol] 4.61 10*6/uL 4.6-6.2 [facility] Absolute lymphocyte countOrd ered By: Renard Burgos on 07-03-2023 Lymphocytes Auto (Unsp spec) [#/Vol] 1.84 10*3/uL 0.83-4.51 [facility] Automated lymphocyte count a s percentage of total leukocytesOrdered By: Renard Burgos on 07-03-2023 Lymphocytes/100 WBC Auto (Unsp spec) 16.9 % 19-41 [facility] Basophil percentageOrdered B y: Renard Burgos on 07-03-2023 Basophil percentage 3.17 ng/mL 0.0-4.0 [facility] Comment on above: This test was perfor med using the TPSA assay method for [employer] chemistry system. Values obtained with differentassay methods cannot be used interchangably.When changing PSA assays in the course of monitoring apatient, additional sequential testing should be carriedout to confirm baseline values. Basophils/100 WBC (Bld) 0.5 % 0-1 [facility] Eosinophils/100 WBC (Bld) 0.4 % 0-5 [facility] Hemoglobin (Bld) [Mass/Vol] 13.2 g/dL 13.0-16.5 [facility] Monocytes/100 WBC (Bld) 7.4 % 0-10 [facility] Neutrophils (Bld) [#/Vol] 8.1 10*3/uL 2.0-7.7 [facility] Neutrophils/100 WBC (Bld) 74.4 % 47-70 [facility] WBC (Bld) [#/Vol] 10.9 10*3/uL 4.4-11.0 [facility] Determination of erythrocyte mean corpuscular volume (MCV)Ordered By: Renard Burgos on 07-03-2023 MCV (RBC) [Entitic vol] 89.8 fL 80-94 [facility] Erythrocyte distribution wid th ratioOrdered By: Renard Burgos on 07-03-2023 Erythrocyte distribution width (RBC) [Ratio] 12.7 % 11.6-14.6 [facility] Erythrocyte distribution wid th standard deviationOrdered By: Renard Burgos on 07-03-2023 Erythrocyte distribution width (RBC) [Entitic vol] 41.9 fL 35.1-43.9 [facility] Hematocrit Auto (Bld) [Volum e fraction]Ordered By: Renard Burgos on 07-03-2023 Hematocrit (Bld) [Volume fraction] 40.3 % 40-54 [facility] Immature granulocytes/100 WB C Auto (Bld)Ordered By: Renard Burgos on 07-03-2023 Immature granulocytes/100 WBC (Bld) 0.400 % 0.0-0.9 [facility] Comment on above: IG% - Immature Granu locytes (promyelocytes, myelocytes and metamyelocytes) > 1% indicates that a LEFT SHIFT is Present. Laboratory - Hematology and Cell countsOrdered By: Renard Burgos on 07-03-2023 MCH (RBC) [Entitic mass] 29.4 pg 27.0-32.0 [facility] MCHC (RBC) [Mass/Vol] 32.8 g/dL 32-36 [facility] Nucleated RBC/100 WBC (Bld) [Ratio] 0 % 0-5 [facility] Platelet mean volume (Bld) [Entitic vol] 11.2 fL 6.2-12.0 [facility] Platelets (Bld) [#/Vol] 191 10*3/uL 150-450 [facility] RBC Auto (Bld) [#/Vol]Ordere d By: Renard Burgos on 07-03-2023 RBC (Bld) [#/Vol] 4.49 10*6/uL 4.6-6.2 [facility] Absolute lymphocyte countOrd ered By: Renard Burgos on 06-26-2023 Lymphocytes Auto (Unsp spec) [#/Vol] 2.23 10*3/uL 0.83-4.51 [facility] Automated lymphocyte count a s percentage of total leukocytesOrdered By: Renard Burgos on 06-26-2023 Lymphocytes/100 WBC Auto (Unsp spec) 27.3 % 19-41 [facility] Basophil percentageOrdered B y: Renard Burgos on 06-26-2023 Basophils/100 WBC (Bld) 0.5 % 0-1 [facility] Eosinophils/100 WBC (Bld) 0.7 % 0-5 [facility] Hemoglobin (Bld) [Mass/Vol] 13.7 g/dL 13.0-16.5 [facility] Monocytes/100 WBC (Bld) 9.5 % 0-10 [facility] Neutrophils (Bld) [#/Vol] 5.1 10*3/uL 2.0-7.7 [facility] Neutrophils/100 WBC (Bld) 61.8 % 47-70 [facility] WBC (Bld) [#/Vol] 8.2 10*3/uL 4.4-11.0 [facility] Determination of erythrocyte mean corpuscular volume (MCV)Ordered By: Renard Burgos on 06-26-2023 MCV (RBC) [Entitic vol] 92.2 fL 80-94 [facility] Erythrocyte distribution wid th ratioOrdered By: Renard Burgos on 06-26-2023 Erythrocyte distribution width (RBC) [Ratio] 12.7 % 11.6-14.6 [facility] Erythrocyte distribution wid th standard deviationOrdered By: Renard Burgos on 06-26-2023 Erythrocyte distribution width (RBC) [Entitic vol] 42.8 fL 35.1-43.9 [facility] Hematocrit Auto (Bld) [Volum e fraction]Ordered By: Renard Burgos on 06-26-2023 Hematocrit (Bld) [Volume fraction] 42.6 % 40-54 [facility] Immature granulocytes/100 WB C Auto (Bld)Ordered By: Renard Burgos on 06-26-2023 Immature granulocytes/100 WBC (Bld) 0.200 % 0.0-0.9 [facility] Comment on above: IG% - Immature Granu locytes (promyelocytes, myelocytes and metamyelocytes) > 1% indicates that a LEFT SHIFT is Present. Laboratory - Hematology and Cell countsOrdered By: Renard Burgos on 06-26-2023 MCH (RBC) [Entitic mass] 29.7 pg 27.0-32.0 [facility] MCHC (RBC) [Mass/Vol] 32.2 g/dL 32-36 [facility] Nucleated RBC/100 WBC (Bld) [Ratio] 0 % 0-5 [facility] Platelet mean volume (Bld) [Entitic vol] 11.0 fL 6.2-12.0 [facility] Platelets (Bld) [#/Vol] 182 10*3/uL 150-450 [facility] RBC Auto (Bld) [#/Vol]Ordere d By: Renard Burgos on 06-26-2023 RBC (Bld) [#/Vol] 4.62 10*6/uL 4.6-6.2 [facility] Absolute lymphocyte countOrd ered By: Renard Burgos on 06-19-2023 Lymphocytes Auto (Unsp spec) [#/Vol] 2.13 10*3/uL 0.83-4.51 [facility] Automated lymphocyte count a s percentage of total leukocytesOrdered By: Renard Burgos on 06-19-2023 Lymphocytes/100 WBC Auto (Unsp spec) 28.8 % 19-41 [facility] Basophil percentageOrdered B y: Renard Burgos on 06-19-2023 Basophils/100 WBC (Bld) 0.5 % 0-1 [facility] Eosinophils/100 WBC (Bld) 0.5 % 0-5 [facility] Hemoglobin (Bld) [Mass/Vol] 13.7 g/dL 13.0-16.5 [facility] Monocytes/100 WBC (Bld) 8.1 % 0-10 [facility] Neutrophils (Bld) [#/Vol] 4.6 10*3/uL 2.0-7.7 [facility] Neutrophils/100 WBC (Bld) 61.6 % 47-70 [facility] WBC (Bld) [#/Vol] 7.4 10*3/uL 4.4-11.0 [facility] Determination of erythrocyte mean corpuscular volume (MCV)Ordered By: Renard Burgos on 06-19-2023 MCV (RBC) [Entitic vol] 91.7 fL 80-94 [facility] Erythrocyte distribution wid th ratioOrdered By: Renard Burgos on 06-19-2023 Erythrocyte distribution width (RBC) [Ratio] 12.7 % 11.6-14.6 [facility] Erythrocyte distribution wid th standard deviationOrdered By: Renard Burgos on 06-19-2023 Erythrocyte distribution width (RBC) [Entitic vol] 42.8 fL 35.1-43.9 [facility] Hematocrit Auto (Bld) [Volum e fraction]Ordered By: Renard Burgos on 06-19-2023 Hematocrit (Bld) [Volume fraction] 43.1 % 40-54 [facility] Immature granulocytes/100 WB C Auto (Bld)Ordered By: Renard Burgos on 06-19-2023 Immature granulocytes/100 WBC (Bld) 0.500 % 0.0-0.9 [facility] Comment on above: IG% - Immature Granu locytes (promyelocytes, myelocytes and metamyelocytes) > 1% indicates that a LEFT SHIFT is Present. Laboratory - Hematology and Cell countsOrdered By: Renard Burgos on 06-19-2023 MCH (RBC) [Entitic mass] 29.1 pg 27.0-32.0 [facility] MCHC (RBC) [Mass/Vol] 31.8 g/dL 32-36 [facility] Nucleated RBC/100 WBC (Bld) [Ratio] 0 % 0-5 [facility] Platelet mean volume (Bld) [Entitic vol] 11.1 fL 6.2-12.0 [facility] Platelets (Bld) [#/Vol] 201 10*3/uL 150-450 [facility] RBC Auto (Bld) [#/Vol]Ordere d By: Renard Burgos on 06-19-2023 RBC (Bld) [#/Vol] 4.70 10*6/uL 4.6-6.2 [facility] Absolute lymphocyte countOrd ered By: Renard Burgos on 06-12-2023 Lymphocytes Auto (Unsp spec) [#/Vol] 2.17 10*3/uL 0.83-4.51 [facility] Automated lymphocyte count a s percentage of total leukocytesOrdered By: Renard Burgos on 06-12-2023 Lymphocytes/100 WBC Auto (Unsp spec) 26.7 % 19-41 [facility] Basophil percentageOrdered B y: Renard Burgos on 06-12-2023 Basophils/100 WBC (Bld) 0.4 % 0-1 [facility] Eosinophils/100 WBC (Bld) 0.5 % 0-5 [facility] Hemoglobin (Bld) [Mass/Vol] 13.5 g/dL 13.0-16.5 [facility] Monocytes/100 WBC (Bld) 9.0 % 0-10 [facility] Neutrophils (Bld) [#/Vol] 5.1 10*3/uL 2.0-7.7 [facility] Neutrophils/100 WBC (Bld) 63.0 % 47-70 [facility] WBC (Bld) [#/Vol] 8.1 10*3/uL 4.4-11.0 [facility] Determination of erythrocyte mean corpuscular volume (MCV)Ordered By: Renard Burgos on 06-12-2023 MCV (RBC) [Entitic vol] 91.3 fL 80-94 [facility] Erythrocyte distribution wid th ratioOrdered By: Renard Burgos on 06-12-2023 Erythrocyte distribution width (RBC) [Ratio] 12.6 % 11.6-14.6 [facility] Erythrocyte distribution wid th standard deviationOrdered By: Renard Burgos on 06-12-2023 Erythrocyte distribution width (RBC) [Entitic vol] 41.5 fL 35.1-43.9 [facility] Hematocrit Auto (Bld) [Volum e fraction]Ordered By: Renard Burgos on 06-12-2023 Hematocrit (Bld) [Volume fraction] 40.8 % 40-54 [facility] Immature granulocytes/100 WB C Auto (Bld)Ordered By: Renard Burgos on 06-12-2023 Immature granulocytes/100 WBC (Bld) 0.400 % 0.0-0.9 [facility] Comment on above: IG% - Immature Granu locytes (promyelocytes, myelocytes and metamyelocytes) > 1% indicates that a LEFT SHIFT is Present. Laboratory - Hematology and Cell countsOrdered By: Renard Burgos on 06-12-2023 MCH (RBC) [Entitic mass] 30.2 pg 27.0-32.0 [facility] MCHC (RBC) [Mass/Vol] 33.1 g/dL 32-36 [facility] Nucleated RBC/100 WBC (Bld) [Ratio] 0 % 0-5 [facility] Platelet mean volume (Bld) [Entitic vol] 11.0 fL 6.2-12.0 [facility] Platelets (Bld) [#/Vol] 195 10*3/uL 150-450 [facility] RBC Auto (Bld) [#/Vol]Ordere d By: Renard Burgos on 06-12-2023 RBC (Bld) [#/Vol] 4.47 10*6/uL 4.6-6.2 [facility] Absolute lymphocyte countOrd ered By: Renard Burgos on 06-05-2023 Lymphocytes Auto (Unsp spec) [#/Vol] 2.05 10*3/uL 0.83-4.51 [facility] Automated lymphocyte count a s percentage of total leukocytesOrdered By: Renard Burgos on 06-05-2023 Lymphocytes/100 WBC Auto (Unsp spec) 24.1 % 19-41 [facility] Basophil percentageOrdered B y: Renard Burgos on 06-05-2023 Basophils/100 WBC (Bld) 0.5 % 0-1 [facility] Eosinophils/100 WBC (Bld) 0.5 % 0-5 [facility] Hemoglobin (Bld) [Mass/Vol] 13.6 g/dL 13.0-16.5 [facility] Monocytes/100 WBC (Bld) 7.6 % 0-10 [facility] Neutrophils (Bld) [#/Vol] 5.7 10*3/uL 2.0-7.7 [facility] Neutrophils/100 WBC (Bld) 66.9 % 47-70 [facility] WBC (Bld) [#/Vol] 8.5 10*3/uL 4.4-11.0 [facility] Determination of erythrocyte mean corpuscular volume (MCV)Ordered By: Renard Burgos on 06-05-2023 MCV (RBC) [Entitic vol] 89.7 fL 80-94 [facility] Erythrocyte distribution wid th ratioOrdered By: Renard Burgos on 06-05-2023 Erythrocyte distribution width (RBC) [Ratio] 12.6 % 11.6-14.6 [facility] Erythrocyte distribution wid th standard deviationOrdered By: Renard Burgos on 06-05-2023 Erythrocyte distribution width (RBC) [Entitic vol] 41.1 fL 35.1-43.9 [facility] Hematocrit Auto (Bld) [Volum e fraction]Ordered By: Renard Burgos on 06-05-2023 Hematocrit (Bld) [Volume fraction] 41.0 % 40-54 [facility] Immature granulocytes/100 WB C Auto (Bld)Ordered By: Renard Burgos on 06-05-2023 Immature granulocytes/100 WBC (Bld) 0.400 % 0.0-0.9 [facility] Comment on above: IG% - Immature Granu locytes (promyelocytes, myelocytes and metamyelocytes) > 1% indicates that a LEFT SHIFT is Present. Laboratory - Hematology and Cell countsOrdered By: Renard Burgos on 06-05-2023 MCH (RBC) [Entitic mass] 29.8 pg 27.0-32.0 [facility] MCHC (RBC) [Mass/Vol] 33.2 g/dL 32-36 [facility] Nucleated RBC/100 WBC (Bld) [Ratio] 0 % 0-5 [facility] Platelets (Bld) [#/Vol] 193 10*3/uL 150-450 [facility] Platelet mean volume Adam-Ec ker (Bld) [Entitic vol]Ordered By: Renard Burgos on 06-05-2023 Platelet mean volume (Bld) [Entitic vol] 10.8 fL 6.2-12.0 [facility] RBC Auto (Bld) [#/Vol]Ordere d By: Renard Burgos on 06-05-2023 RBC (Bld) [#/Vol] 4.57 10*6/uL 4.6-6.2 [facility] Absolute lymphocyte countOrd ered By: Renard Burgos on 05-29-2023 Lymphocytes Auto (Unsp spec) [#/Vol] 2.32 10*3/uL 0.83-4.51 [facility] Automated lymphocyte count a s percentage of total leukocytesOrdered By: Renard Burgos on 05-29-2023 Lymphocytes/100 WBC Auto (Unsp spec) 26.7 % 19-41 [facility] Basophil percentageOrdered B y: Renard Burgos on 05-29-2023 Basophils/100 WBC (Bld) 0.6 % 0-1 [facility] Eosinophils/100 WBC (Bld) 0.5 % 0-5 [facility] Hemoglobin (Bld) [Mass/Vol] 14.2 g/dL 13.0-16.5 [facility] Monocytes/100 WBC (Bld) 6.8 % 0-10 [facility] Neutrophils (Bld) [#/Vol] 5.7 10*3/uL 2.0-7.7 [facility] Neutrophils/100 WBC (Bld) 65.2 % 47-70 [facility] WBC (Bld) [#/Vol] 8.7 10*3/uL 4.4-11.0 [facility] Determination of erythrocyte mean corpuscular volume (MCV)Ordered By: Renard Burgos on 05-29-2023 MCV (RBC) [Entitic vol] 94.0 fL 80-94 [facility] Erythrocyte distribution wid th ratioOrdered By: Renard Burgos on 05-29-2023 Erythrocyte distribution width (RBC) [Ratio] 12.6 % 11.6-14.6 [facility] Erythrocyte distribution wid th standard deviationOrdered By: Renard Burgos on 05-29-2023 Erythrocyte distribution width (RBC) [Entitic vol] 43.0 fL 35.1-43.9 [facility] Hematocrit Auto (Bld) [Volum e fraction]Ordered By: Renard Burgos on 05-29-2023 Hematocrit (Bld) [Volume fraction] 45.4 % 40-54 [facility] Immature granulocytes/100 WB C Auto (Bld)Ordered By: Renard Burgos on 05-29-2023 Immature granulocytes/100 WBC (Bld) 0.200 % 0.0-0.9 [facility] Comment on above: IG% - Immature Granu locytes (promyelocytes, myelocytes and metamyelocytes) > 1% indicates that a LEFT SHIFT is Present. Laboratory - Hematology and Cell countsOrdered By: Renard Burgos on 05-29-2023 MCH (RBC) [Entitic mass] 29.4 pg 27.0-32.0 [facility] MCHC (RBC) [Mass/Vol] 31.3 g/dL 32-36 [facility] Nucleated RBC/100 WBC (Bld) [Ratio] 0 % 0-5 [facility] Platelets (Bld) [#/Vol] 116 10*3/uL 150-450 [facility] Platelet mean volume Adam-Ec ker (Bld) [Entitic vol]Ordered By: Renard Burgos on 05-29-2023 Platelet mean volume (Bld) [Entitic vol] 11.1 fL 6.2-12.0 [facility] RBC Auto (Bld) [#/Vol]Ordere d By: Renard Burgos on 05-29-2023 RBC (Bld) [#/Vol] 4.83 10*6/uL 4.6-6.2 [facility] Absolute lymphocyte countOrd ered By: Renard Burgos on 05-22-2023 Lymphocytes Auto (Unsp spec) [#/Vol] 2.40 10*3/uL 0.83-4.51 [facility] Automated lymphocyte count a s percentage of total leukocytesOrdered By: Renard Burgos on 05-22-2023 Lymphocytes/100 WBC Auto (Unsp spec) 25.6 % 19-41 [facility] Basophil percentageOrdered B y: Renard Burgos on 05-22-2023 Basophils/100 WBC (Bld) 0.4 % 0-1 [facility] Eosinophils/100 WBC (Bld) 0.4 % 0-5 [facility] Hemoglobin (Bld) [Mass/Vol] 13.7 g/dL 13.0-16.5 [facility] Monocytes/100 WBC (Bld) 9.1 % 0-10 [facility] Neutrophils (Bld) [#/Vol] 6.0 10*3/uL 2.0-7.7 [facility] Neutrophils/100 WBC (Bld) 63.9 % 47-70 [facility] WBC (Bld) [#/Vol] 9.4 10*3/uL 4.4-11.0 [facility] Determination of erythrocyte mean corpuscular volume (MCV)Ordered By: Renard Burgos on 05-22-2023 MCV (RBC) [Entitic vol] 91.8 fL 80-94 [facility] Erythrocyte distribution wid th ratioOrdered By: Renard Burgos on 05-22-2023 Erythrocyte distribution width (RBC) [Ratio] 12.8 % 11.6-14.6 [facility] Erythrocyte distribution wid th standard deviationOrdered By: Renard Burgos on 05-22-2023 Erythrocyte distribution width (RBC) [Entitic vol] 43.4 fL 35.1-43.9 [facility] Hematocrit Auto (Bld) [Volum e fraction]Ordered By: Renard Burgos on 05-22-2023 Hematocrit (Bld) [Volume fraction] 41.5 % 40-54 [facility] Immature granulocytes/100 WB C Auto (Bld)Ordered By: Renard Burgos on 05-22-2023 Immature granulocytes/100 WBC (Bld) 0.600 % 0.0-0.9 [facility] Comment on above: IG% - Immature Granu locytes (promyelocytes, myelocytes and metamyelocytes) > 1% indicates that a LEFT SHIFT is Present. Laboratory - Hematology and Cell countsOrdered By: Renard Burgos on 05-22-2023 MCH (RBC) [Entitic mass] 30.3 pg 27.0-32.0 [facility] MCHC (RBC) [Mass/Vol] 33.0 g/dL 32-36 [facility] Nucleated RBC/100 WBC (Bld) [Ratio] 0 % 0-5 [facility] Platelets (Bld) [#/Vol] 192 10*3/uL 150-450 [facility] Platelet mean volume Adam-Ec ker (Bld) [Entitic vol]Ordered By: Renard Burgos on 05-22-2023 Platelet mean volume (Bld) [Entitic vol] 11.3 fL 6.2-12.0 [facility] RBC Auto (Bld) [#/Vol]Ordere d By: Renard Burgos on 05-22-2023 RBC (Bld) [#/Vol] 4.52 10*6/uL 4.6-6.2 [facility] Absolute lymphocyte countOrd ered By: Renard Burgos on 05-15-2023 Lymphocytes Auto (Unsp spec) [#/Vol] 2.11 10*3/uL 0.83-4.51 [facility] Basophil percentageOrdered B y: Renard Burgos on 05-15-2023 Basophils/100 WBC (Bld) 0.6 % 0-1 [facility] Eosinophils/100 WBC (Bld) 0.8 % 0-5 [facility] Neutrophils (Bld) [#/Vol] 4.9 10*3/uL 2.0-7.7 [facility] Neutrophils/100 WBC (Bld) 62.4 % 47-70 [facility] WBC (Bld) [#/Vol] 7.9 10*3/uL 4.4-11.0 [facility] Blood erythrocytes count (nu mber/volume)Ordered By: Renard Burgos on 05-15-2023 RBC (Bld) [#/Vol] 4.61 10*6/uL 4.6-6.2 [facility] Blood hemoglobin measurement (mass/volume)Ordered By: Renard Burgos on 05-15-2023 Hemoglobin (Bld) [Mass/Vol] 13.9 g/dL 13.0-16.5 [facility] Blood lymphocytes/100 leukoc ytesOrdered By: Renard Burgos on 05-15-2023 Lymphocytes/100 WBC (Bld) 26.7 % 19-41 [facility] Blood monocytes/100 leukocyt esOrdered By: Renard Burgos on 05-15-2023 Monocytes/100 WBC (Bld) 9.1 % 0-10 [facility] Blood platelet mean volumeOr dered By: Renard Burgos on 05-15-2023 Platelet mean volume (Bld) [Entitic vol] 10.7 fL 6.2-12.0 [facility] Determination of erythrocyte mean corpuscular volume (MCV)Ordered By: Renard Burgos on 05-15-2023 MCV (RBC) [Entitic vol] 90.5 fL 80-94 [facility] Hematocrit Auto (Bld) [Volum e fraction]Ordered By: Renard Burgos on 05-15-2023 Hematocrit (Bld) [Volume fraction] 41.7 % 40-54 [facility] Laboratory - Hematology and Cell countsOrdered By: Renard Burgos on 05-15-2023 Erythrocyte distribution width (RBC) [Entitic vol] 42.4 fL 35.1-43.9 [facility] Erythrocyte distribution width (RBC) [Ratio] 12.9 % 11.6-14.6 [facility] Immature granulocytes/100 WBC (Bld) 0.400 % 0.0-0.9 [facility] Comment on above: IG% - Immature Granu locytes (promyelocytes, myelocytes and metamyelocytes) > 1% indicates that a LEFT SHIFT is Present. MCH (RBC) [Entitic mass] 30.2 pg 27.0-32.0 [facility] Nucleated RBC/100 WBC (Bld) [Ratio] 0 % 0-5 [facility] MCHC Auto (RBC) [Mass/Vol]Or dered By: Renard Burgos on 05-15-2023 MCHC (RBC) [Mass/Vol] 33.3 g/dL 32-36 [facility] Platelets bldOrdered By: Lyubov Burgos on 05-15-2023 Platelets (Bld) [#/Vol] 202 10*3/uL 150-450 [facility] Absolute lymphocyte countOrd ered By: Renard Burgos on 05-08-2023 Lymphocytes Auto (Unsp spec) [#/Vol] 2.06 10*3/uL 0.83-4.51 [facility] Basophil percentageOrdered B y: Renard Burgos on 05-08-2023 Basophils/100 WBC (Bld) 0.4 % 0-1 [facility] Eosinophils/100 WBC (Bld) 0.5 % 0-5 [facility] Neutrophils (Bld) [#/Vol] 5.0 10*3/uL 2.0-7.7 [facility] Neutrophils/100 WBC (Bld) 65.7 % 47-70 [facility] WBC (Bld) [#/Vol] 7.5 10*3/uL 4.4-11.0 [facility] Blood erythrocytes count (nu mber/volume)Ordered By: Renard Burgos on 05-08-2023 RBC (Bld) [#/Vol] 4.62 10*6/uL 4.6-6.2 [facility] Blood hemoglobin measurement (mass/volume)Ordered By: Renard Burgos on 05-08-2023 Hemoglobin (Bld) [Mass/Vol] 13.6 g/dL 13.0-16.5 [facility] Blood lymphocytes/100 leukoc ytesOrdered By: Renard Burgos on 05-08-2023 Lymphocytes/100 WBC (Bld) 27.4 % 19-41 [facility] Blood monocytes/100 leukocyt esOrdered By: Renard Burgos on 05-08-2023 Monocytes/100 WBC (Bld) 5.6 % 0-10 [facility] Blood platelet mean volumeOr dered By: Renard Burgos on 05-08-2023 Platelet mean volume (Bld) [Entitic vol] 11.0 fL 6.2-12.0 [facility] Determination of erythrocyte mean corpuscular volume (MCV)Ordered By: Renard Burgos on 05-08-2023 MCV (RBC) [Entitic vol] 91.8 fL 80-94 [facility] Hematocrit Auto (Bld) [Volum e fraction]Ordered By: Renard Burgos on 05-08-2023 Hematocrit (Bld) [Volume fraction] 42.4 % 40-54 [facility] Laboratory - Hematology and Cell countsOrdered By: Renard Burgos on 05-08-2023 Erythrocyte distribution width (RBC) [Entitic vol] 43.1 fL 35.1-43.9 [facility] Erythrocyte distribution width (RBC) [Ratio] 13.0 % 11.6-14.6 [facility] Immature granulocytes/100 WBC (Bld) 0.400 % 0.0-0.9 [facility] Comment on above: IG% - Immature Granu locytes (promyelocytes, myelocytes and metamyelocytes) > 1% indicates that a LEFT SHIFT is Present. MCH (RBC) [Entitic mass] 29.4 pg 27.0-32.0 [facility] Nucleated RBC/100 WBC (Bld) [Ratio] 0 % 0-5 [facility] MCHC Auto (RBC) [Mass/Vol]Or dered By: Renard Burgos on 05-08-2023 MCHC (RBC) [Mass/Vol] 32.1 g/dL 32-36 [facility] Platelets bldOrdered By: Lyubov Burgos on 05-08-2023 Platelets (Bld) [#/Vol] 226 10*3/uL 150-450 [facility] Absolute lymphocyte countOrd ered By: Renard Burgos on 04-17-2023 Lymphocytes Auto (Unsp spec) [#/Vol] 0.92 10*3/uL 0.83-4.51 [facility] Basophil percentageOrdered B y: Renard Burgos on 04-17-2023 Basophils/100 WBC (Bld) 0.1 % 0-1 [facility] Eosinophils/100 WBC (Bld) 0.0 % 0-5 [facility] Neutrophils (Bld) [#/Vol] 6.0 10*3/uL 2.0-7.7 [facility] Neutrophils/100 WBC (Bld) 81.4 % 47-70 [facility] WBC (Bld) [#/Vol] 7.4 10*3/uL 4.4-11.0 [facility] Blood erythrocytes count (nu mber/volume)Ordered By: Renard Burgos on 04-17-2023 RBC (Bld) [#/Vol] 4.59 10*6/uL 4.6-6.2 [facility] Blood hemoglobin measurement (mass/volume)Ordered By: Renard Burgos on 04-17-2023 Hemoglobin (Bld) [Mass/Vol] 13.7 g/dL 13.0-16.5 [facility] Blood lymphocytes/100 leukoc ytesOrdered By: Renard Burgos on 04-17-2023 Lymphocytes/100 WBC (Bld) 12.5 % 19-41 [facility] Blood monocytes/100 leukocyt esOrdered By: Renard Burgos on 04-17-2023 Monocytes/100 WBC (Bld) 5.6 % 0-10 [facility] Blood platelet mean volumeOr dered By: Renard Burgos on 04-17-2023 Platelet mean volume (Bld) [Entitic vol] 10.9 fL 6.2-12.0 [facility] Determination of erythrocyte mean corpuscular volume (MCV)Ordered By: Renard Burgos on 04-17-2023 MCV (RBC) [Entitic vol] 90.8 fL 80-94 [facility] Hematocrit Auto (Bld) [Volum e fraction]Ordered By: Renard Burgos on 04-17-2023 Hematocrit (Bld) [Volume fraction] 41.7 % 40-54 [facility] Laboratory - Hematology and Cell countsOrdered By: Renard Burgos on 04-17-2023 Erythrocyte distribution width (RBC) [Entitic vol] 42.3 fL 35.1-43.9 [facility] Erythrocyte distribution width (RBC) [Ratio] 12.8 % 11.6-14.6 [facility] Immature granulocytes/100 WBC (Bld) 0.400 % 0.0-0.9 [facility] Comment on above: IG% - Immature Granu locytes (promyelocytes, myelocytes and metamyelocytes) > 1% indicates that a LEFT SHIFT is Present. MCH (RBC) [Entitic mass] 29.8 pg 27.0-32.0 [facility] Nucleated RBC/100 WBC (Bld) [Ratio] 0 % 0-5 [facility] MCHC Auto (RBC) [Mass/Vol]Or dered By: Renard Burgos on 04-17-2023 MCHC (RBC) [Mass/Vol] 32.9 g/dL 32-36 [facility] Platelets bldOrdered By: Pet shirley Burgos on 04-17-2023 Platelets (Bld) [#/Vol] 194 10*3/uL 150-450 [facility] Basophil percentageOrdered B y: Renard Burgos on 04-14-2023 Bilirubin [Mass/Vol] 0.30 mg/dL 0.20-1.00 [facility] Comment on above: For patients on eltr ombopag therapy, use of Dimension [place] TBIL is not recommended. Protein [Mass/Vol] 6.2 g/dL 6.4-8.2 [facility] Direct bilirubinOrdered By: Renard Burgos on 04-14-2023 Bilirubin.direct [Mass/Vol] 0.11 mg/dL 0.00-0.30 [facility] Laboratory - Chemistry and C hemistry - challengeOrdered By: Renard Burgos on 04-14-2023 ALP [Catalytic activity/Vol] 139 U/L 45-117 [facility] ALT [Catalytic activity/Vol] 23 U/L 16-61 [facility] Globulin (S) [Mass/Vol] 3.2 g/dL 2.2-4.2 [facility] Serum or plasma albumin gordy urement (mass/volume)Ordered By: Renard Burgos on 04-14-2023 Albumin [Mass/Vol] 3.0 g/dL 3.2-5.0 [facility] Thin prep Papanicolaou smear with manual screeningOrdered By: Renard Burgos on 04-14-2023 Thin prep Papanicolaou smear with manual screening 14 U/L 15-37 [facility] Absolute lymphocyte countOrd ered By: Renard Burgos on 04-10-2023 Lymphocytes Auto (Unsp spec) [#/Vol] 2.54 10*3/uL 0.83-4.51 [facility] Basophil percentageOrdered B y: Renard Burgos on 04-10-2023 Basophils/100 WBC (Bld) 0.5 % 0-1 [facility] Eosinophils/100 WBC (Bld) 0.5 % 0-5 [facility] Neutrophils (Bld) [#/Vol] 5.1 10*3/uL 2.0-7.7 [facility] Neutrophils/100 WBC (Bld) 59.0 % 47-70 [facility] WBC (Bld) [#/Vol] 8.7 10*3/uL 4.4-11.0 [facility] Blood erythrocytes count (nu mber/volume)Ordered By: Renard Burgos on 04-10-2023 RBC (Bld) [#/Vol] 4.84 10*6/uL 4.6-6.2 [facility] Blood hemoglobin measurement (mass/volume)Ordered By: Renard Burgos on 04-10-2023 Hemoglobin (Bld) [Mass/Vol] 14.2 g/dL 13.0-16.5 [facility] Blood lymphocytes/100 leukoc ytesOrdered By: Renard Burgos on 04-10-2023 Lymphocytes/100 WBC (Bld) 29.4 % 19-41 [facility] Blood monocytes/100 leukocyt esOrdered By: Renard Burgos on 04-10-2023 Monocytes/100 WBC (Bld) 10.3 % 0-10 [facility] Blood platelet mean volumeOr dered By: Renard Burgos on 04-10-2023 Platelet mean volume (Bld) [Entitic vol] 11.1 fL 6.2-12.0 [facility] Determination of erythrocyte mean corpuscular volume (MCV)Ordered By: Renard Burgos on 04-10-2023 MCV (RBC) [Entitic vol] 91.5 fL 80-94 [facility] Hematocrit Auto (Bld) [Volum e fraction]Ordered By: Renard Burgos on 04-10-2023 Hematocrit (Bld) [Volume fraction] 44.3 % 40-54 [facility] Laboratory - Hematology and Cell countsOrdered By: Renard Burgos on 04-10-2023 Erythrocyte distribution width (RBC) [Entitic vol] 41.9 fL 35.1-43.9 [facility] Erythrocyte distribution width (RBC) [Ratio] 12.6 % 11.6-14.6 [facility] Immature granulocytes/100 WBC (Bld) 0.300 % 0.0-0.9 [facility] Comment on above: IG% - Immature Granu locytes (promyelocytes, myelocytes and metamyelocytes) > 1% indicates that a LEFT SHIFT is Present. MCH (RBC) [Entitic mass] 29.3 pg 27.0-32.0 [facility] Nucleated RBC/100 WBC (Bld) [Ratio] 0 % 0-5 [facility] MCHC Auto (RBC) [Mass/Vol]Or dered By: Renard Burgos on 04-10-2023 MCHC (RBC) [Mass/Vol] 32.1 g/dL 32-36 [facility] Platelets bldOrdered By: Lyubov Burgos on 04-10-2023 Platelets (Bld) [#/Vol] 216 10*3/uL 150-450 [facility] Absolute lymphocyte countOrd ered By: Renard Burgos on 04-03-2023 Lymphocytes Auto (Unsp spec) [#/Vol] 1.91 10*3/uL 0.83-4.51 [facility] Basophil percentageOrdered B y: Renard Burgos on 04-03-2023 Basophils/100 WBC (Bld) 0.5 % 0-1 [facility] Eosinophils/100 WBC (Bld) 0.5 % 0-5 [facility] Neutrophils (Bld) [#/Vol] 5.0 10*3/uL 2.0-7.7 [facility] Neutrophils/100 WBC (Bld) 66.5 % 47-70 [facility] WBC (Bld) [#/Vol] 7.6 10*3/uL 4.4-11.0 [facility] Blood erythrocytes count (nu mber/volume)Ordered By: Renard Burgos on 04-03-2023 RBC (Bld) [#/Vol] 4.62 10*6/uL 4.6-6.2 [facility] Blood hemoglobin measurement (mass/volume)Ordered By: Renard Burgos on 04-03-2023 Hemoglobin (Bld) [Mass/Vol] 13.7 g/dL 13.0-16.5 [facility] Blood lymphocytes/100 leukoc ytesOrdered By: Renard Burgos on 04-03-2023 Lymphocytes/100 WBC (Bld) 25.2 % 19-41 [facility] Blood monocytes/100 leukocyt esOrdered By: Renard Burgos on 04-03-2023 Monocytes/100 WBC (Bld) 6.9 % 0-10 [facility] Blood platelet mean volumeOr dered By: Renard Burgos on 04-03-2023 Platelet mean volume (Bld) [Entitic vol] 10.8 fL 6.2-12.0 [facility] Determination of erythrocyte mean corpuscular volume (MCV)Ordered By: Renard Burgos on 04-03-2023 MCV (RBC) [Entitic vol] 91.6 fL 80-94 [facility] Hematocrit Auto (Bld) [Volum e fraction]Ordered By: Renard Burgos on 04-03-2023 Hematocrit (Bld) [Volume fraction] 42.3 % 40-54 [facility] Laboratory - Hematology and Cell countsOrdered By: Renard Burgos on 04-03-2023 Erythrocyte distribution width (RBC) [Entitic vol] 42.6 fL 35.1-43.9 [facility] Erythrocyte distribution width (RBC) [Ratio] 12.8 % 11.6-14.6 [facility] Immature granulocytes/100 WBC (Bld) 0.400 % 0.0-0.9 [facility] Comment on above: IG% - Immature Granu locytes (promyelocytes, myelocytes and metamyelocytes) > 1% indicates that a LEFT SHIFT is Present. MCH (RBC) [Entitic mass] 29.7 pg 27.0-32.0 [facility] Nucleated RBC/100 WBC (Bld) [Ratio] 0 % 0-5 [facility] MCHC Auto (RBC) [Mass/Vol]Or dered By: Renard Burgos on 04-03-2023 MCHC (RBC) [Mass/Vol] 32.4 g/dL 32-36 [facility] Platelets bldOrdered By: Lyubov Burgos on 04-03-2023 Platelets (Bld) [#/Vol] 216 10*3/uL 150-450 [facility] Absolute lymphocyte countOrd ered By: Renard Burgos on 03-27-2023 Lymphocytes Auto (Unsp spec) [#/Vol] 2.06 10*3/uL 0.83-4.51 [facility] Basophil percentageOrdered B y: Renard Burgos on 03-27-2023 Basophils/100 WBC (Bld) 0.4 % 0-1 [facility] Eosinophils/100 WBC (Bld) 0.2 % 0-5 [facility] Neutrophils (Bld) [#/Vol] 6.3 10*3/uL 2.0-7.7 [facility] Neutrophils/100 WBC (Bld) 68.8 % 47-70 [facility] WBC (Bld) [#/Vol] 9.1 10*3/uL 4.4-11.0 [facility] Blood erythrocytes count (nu mber/volume)Ordered By: Renard Burgos on 03-27-2023 RBC (Bld) [#/Vol] 4.51 10*6/uL 4.6-6.2 [facility] Blood hemoglobin measurement (mass/volume)Ordered By: Renard Burgos on 03-27-2023 Hemoglobin (Bld) [Mass/Vol] 13.2 g/dL 13.0-16.5 [facility] Blood lymphocytes/100 leukoc ytesOrdered By: Renard Burgos on 03-27-2023 Lymphocytes/100 WBC (Bld) 22.6 % 19-41 [facility] Blood monocytes/100 leukocyt esOrdered By: Renard Burgos on 03-27-2023 Monocytes/100 WBC (Bld) 7.3 % 0-10 [facility] Blood platelet mean volumeOr dered By: Renard Burgos on 03-27-2023 Platelet mean volume (Bld) [Entitic vol] 10.8 fL 6.2-12.0 [facility] Determination of erythrocyte mean corpuscular volume (MCV)Ordered By: Renard Burgos on 03-27-2023 MCV (RBC) [Entitic vol] 91.6 fL 80-94 [facility] Hematocrit Auto (Bld) [Volum e fraction]Ordered By: Renard Burgos on 03-27-2023 Hematocrit (Bld) [Volume fraction] 41.3 % 40-54 [facility] Laboratory - Hematology and Cell countsOrdered By: Renard Burgos on 03-27-2023 Erythrocyte distribution width (RBC) [Entitic vol] 42.9 fL 35.1-43.9 [facility] Erythrocyte distribution width (RBC) [Ratio] 12.9 % 11.6-14.6 [facility] Immature granulocytes/100 WBC (Bld) 0.700 % 0.0-0.9 [facility] Comment on above: IG% - Immature Granu locytes (promyelocytes, myelocytes and metamyelocytes) > 1% indicates that a LEFT SHIFT is Present. MCH (RBC) [Entitic mass] 29.3 pg 27.0-32.0 [facility] Nucleated RBC/100 WBC (Bld) [Ratio] 0 % 0-5 [facility] MCHC Auto (RBC) [Mass/Vol]Or dered By: Renard Burgos on 03-27-2023 MCHC (RBC) [Mass/Vol] 32.0 g/dL 32-36 [facility] Platelets bldOrdered By: Lyubov Burgos on 03-27-2023 Platelets (Bld) [#/Vol] 205 10*3/uL 150-450 [facility] Absolute lymphocyte countOrd ered By: Renard Burgos on 03-20-2023 Lymphocytes Auto (Unsp spec) [#/Vol] 1.89 10*3/uL 0.83-4.51 [facility] Basophil percentageOrdered B y: Renard Burgos on 03-20-2023 Basophils/100 WBC (Bld) 0.5 % 0-1 [facility] Chloride [Moles/Vol] 107 mmol/L 98-107 [facility] Eosinophils/100 WBC (Bld) 0.4 % 0-5 [facility] Glucose [Mass/Vol] 124 mg/dL 74-106 [facility] Comment on above: Fasting Glucose resu lt from 100 to 125 mg/dL suggests IMPAIRED HOMEOSTASIS per A.D.A. criteria. Neutrophils (Bld) [#/Vol] 4.8 10*3/uL 2.0-7.7 [facility] Neutrophils/100 WBC (Bld) 64.9 % 47-70 [facility] Potassium [Moles/Vol] 3.6 mmol/L 3.5-5.1 [facility] Sodium [Moles/Vol] 142 mmol/L 136-145 [facility] WBC (Bld) [#/Vol] 7.4 10*3/uL 4.4-11.0 [facility] Blood erythrocytes count (nu mber/volume)Ordered By: Renard Burgos on 03-20-2023 RBC (Bld) [#/Vol] 4.63 10*6/uL 4.6-6.2 [facility] Blood hemoglobin measurement (mass/volume)Ordered By: Renard Burgos on 03-20-2023 Hemoglobin (Bld) [Mass/Vol] 13.7 g/dL 13.0-16.5 [facility] Blood lymphocytes/100 leukoc ytesOrdered By: Renard Burgos on 03-20-2023 Lymphocytes/100 WBC (Bld) 25.7 % 19-41 [facility] Blood monocytes/100 leukocyt esOrdered By: Renard Burgos on 03-20-2023 Monocytes/100 WBC (Bld) 8.2 % 0-10 [facility] Blood platelet mean volumeOr dered By: Renard Burgos on 03-20-2023 Platelet mean volume (Bld) [Entitic vol] 10.7 fL 6.2-12.0 [facility] Determination of erythrocyte mean corpuscular volume (MCV)Ordered By: Renard Burgos on 03-20-2023 MCV (RBC) [Entitic vol] 90.9 fL 80-94 [facility] Hematocrit Auto (Bld) [Volum e fraction]Ordered By: Renard Burgos on 03-20-2023 Hematocrit (Bld) [Volume fraction] 42.1 % 40-54 [facility] Laboratory - Chemistry and C hemistry - challengeOrdered By: Renard Burgos on 03-20-2023 CO2 [Moles/Vol] 29.0 mmol/L 21.0-32.0 [facility] Urea nitrogen/Creatinine [Mass ratio] 30.7 mg/mg 10-20 [facility] Laboratory - Hematology and Cell countsOrdered By: Renard Burgos on 03-20-2023 Erythrocyte distribution width (RBC) [Entitic vol] 43.0 fL 35.1-43.9 [facility] Erythrocyte distribution width (RBC) [Ratio] 12.9 % 11.6-14.6 [facility] Immature granulocytes/100 WBC (Bld) 0.300 % 0.0-0.9 [facility] Comment on above: IG% - Immature Granu locytes (promyelocytes, myelocytes and metamyelocytes) > 1% indicates that a LEFT SHIFT is Present. MCH (RBC) [Entitic mass] 29.6 pg 27.0-32.0 [facility] Nucleated RBC/100 WBC (Bld) [Ratio] 0 % 0-5 [facility] MCHC Auto (RBC) [Mass/Vol]Or dered By: Renard Burgos on 03-20-2023 MCHC (RBC) [Mass/Vol] 32.5 g/dL 32-36 [facility] No Panel InformationOrdered By: Renard Burgos on 03-20-2023 Estimated GFR (MDRD) Amer 178 mL/min >60 [facility] Comment on above: GFR Calc Estimated GFR (MDRD) Non-Af Amer 147 mL/min >60 [facility] Comment on above: Non- GFR Calc Platelets bldOrdered By: Lyubov Burgos on 03-20-2023 Platelets (Bld) [#/Vol] 208 10*3/uL 150-450 [facility] Serum or plasma calcium gordy urement (mass/volume)Ordered By: Renard Burgos on 03-20-2023 Calcium [Mass/Vol] 8.1 mg/dL 8.5-10.1 [facility] Serum or plasma creatinine m easurement (mass/volume)Ordered By: Renard Burgos on 03-20-2023 Creatinine [Mass/Vol] 0.59 mg/dL 0.70-1.30 [facility] Comment on above: The validity of the calculated GFR & GFRAA in patients over 70 years has not been determined. Clinical correlation is essential. Serum or plasma urea nitroge n measurement (mass/volume)Ordered By: Renard Burgos on 03-20-2023 Urea nitrogen [Mass/Vol] 18 mg/dL 7-18 [facility] Thin prep Papanicolaou smear with manual screeningOrdered By: Renard Burgos on 03-20-2023 Thin prep Papanicolaou smear with manual screening 6 5-15 [facility] Erythrocyte sedimentation ra teOrdered By: Renard Burgos on 03-16-2023 ESR (Bld) [Velocity] 3 mm/h 0-20 [facility] Absolute lymphocyte countOrd ered By: Renard Burgos on 03-13-2023 Lymphocytes Auto (Unsp spec) [#/Vol] 2.36 10*3/uL 0.83-4.51 [facility] Basophil percentageOrdered B y: Renard Burgos on 03-13-2023 Basophils/100 WBC (Bld) 0.5 % 0-1 [facility] Eosinophils/100 WBC (Bld) 0.5 % 0-5 [facility] Neutrophils (Bld) [#/Vol] 5.2 10*3/uL 2.0-7.7 [facility] Neutrophils/100 WBC (Bld) 61.3 % 47-70 [facility] WBC (Bld) [#/Vol] 8.5 10*3/uL 4.4-11.0 [facility] Blood erythrocytes count (nu mber/volume)Ordered By: Renard Burgos on 03-13-2023 RBC (Bld) [#/Vol] 4.55 10*6/uL 4.6-6.2 [facility] Blood hemoglobin measurement (mass/volume)Ordered By: Renard Burgos on 03-13-2023 Hemoglobin (Bld) [Mass/Vol] 13.4 g/dL 13.0-16.5 [facility] Blood lymphocytes/100 leukoc ytesOrdered By: Renard Burgos on 03-13-2023 Lymphocytes/100 WBC (Bld) 27.7 % 19-41 [facility] Blood monocytes/100 leukocyt esOrdered By: Renard Burgos on 03-13-2023 Monocytes/100 WBC (Bld) 9.5 % 0-10 [facility] Blood platelet mean volumeOr dered By: Renard Burgos on 03-13-2023 Platelet mean volume (Bld) [Entitic vol] 10.6 fL 6.2-12.0 [facility] Determination of erythrocyte mean corpuscular volume (MCV)Ordered By: Renard Burgos on 03-13-2023 MCV (RBC) [Entitic vol] 93.4 fL 80-94 [facility] Hematocrit Auto (Bld) [Volum e fraction]Ordered By: Renard Burgos on 03-13-2023 Hematocrit (Bld) [Volume fraction] 42.5 % 40-54 [facility] Laboratory - Hematology and Cell countsOrdered By: Renard Burgos on 03-13-2023 Erythrocyte distribution width (RBC) [Entitic vol] 44.1 fL 35.1-43.9 [facility] Erythrocyte distribution width (RBC) [Ratio] 13.0 % 11.6-14.6 [facility] Immature granulocytes/100 WBC (Bld) 0.500 % 0.0-0.9 [facility] Comment on above: IG% - Immature Granu locytes (promyelocytes, myelocytes and metamyelocytes) > 1% indicates that a LEFT SHIFT is Present. MCH (RBC) [Entitic mass] 29.5 pg 27.0-32.0 [facility] Nucleated RBC/100 WBC (Bld) [Ratio] 0 % 0-5 [facility] MCHC Auto (RBC) [Mass/Vol]Or dered By: Renard Burgos on 03-13-2023 MCHC (RBC) [Mass/Vol] 31.5 g/dL 32-36 [facility] Platelets bldOrdered By: Lyubov Burgos on 03-13-2023 Platelets (Bld) [#/Vol] 200 10*3/uL 150-450 [facility] Absolute lymphocyte countOrd ered By: Renard Burgos on 03-06-2023 Lymphocytes Auto (Unsp spec) [#/Vol] 1.80 10*3/uL 0.83-4.51 [facility] Basophil percentageOrdered B y: Renard Burgos on 03-06-2023 Basophils/100 WBC (Bld) 0.5 % 0-1 [facility] Bilirubin [Mass/Vol] 0.40 mg/dL 0.20-1.00 [facility] Comment on above: For patients on eltr ombopag therapy, use of Dimension [place] TBIL is not recommended. Chloride [Moles/Vol] 107 mmol/L 98-107 [facility] Cholesterol [Mass/Vol] 118 mg/dL <200 [facility] Comment on above: <200 mg/dL Desirable 200-240 mg/dL Borderline >240 mg/dL High Risk Eosinophils/100 WBC (Bld) 0.5 % 0-5 [facility] Glucose [Mass/Vol] 107 mg/dL 74-106 [facility] Comment on above: Fasting Glucose resu lt from 100 to 125 mg/dL suggests IMPAIRED HOMEOSTASIS per A.D.A. criteria. Neutrophils (Bld) [#/Vol] 5.5 10*3/uL 2.0-7.7 [facility] Neutrophils/100 WBC (Bld) 68.0 % 47-70 [facility] Potassium [Moles/Vol] 3.8 mmol/L 3.5-5.1 [facility] Protein [Mass/Vol] 6.3 g/dL 6.4-8.2 [facility] Sodium [Moles/Vol] 141 mmol/L 136-145 [facility] Triglyceride [Mass/Vol] 185 mg/dL <199 [facility] Comment on above: The drugs N-Acetylcy steine and Metamizole may falsely depress this assay.Serum Triglycerides Reference Interval Normal <150 mg/dL Borderline high 150 - 199 mg/dL High 200 - 499 mg/dL Very High > or = 500 mg/dL WBC (Bld) [#/Vol] 8.1 10*3/uL 4.4-11.0 [facility] Blood erythrocytes count (nu mber/volume)Ordered By: Renard Burgos on 03-06-2023 RBC (Bld) [#/Vol] 4.69 10*6/uL 4.6-6.2 [facility] Blood hemoglobin measurement (mass/volume)Ordered By: Renard Burgos on 03-06-2023 Hemoglobin (Bld) [Mass/Vol] 14.0 g/dL 13.0-16.5 [facility] Blood lymphocytes/100 leukoc ytesOrdered By: Renard Burgos on 03-06-2023 Lymphocytes/100 WBC (Bld) 22.3 % 19-41 [facility] Blood monocytes/100 leukocyt esOrdered By: Renard Burgos on 03-06-2023 Monocytes/100 WBC (Bld) 8.2 % 0-10 [facility] Blood platelet mean volumeOr dered By: Renard Burgos on 03-06-2023 Platelet mean volume (Bld) [Entitic vol] 10.9 fL 6.2-12.0 [facility] Determination of erythrocyte mean corpuscular volume (MCV)Ordered By: Renard Burgos on 03-06-2023 MCV (RBC) [Entitic vol] 91.9 fL 80-94 [facility] Hematocrit Auto (Bld) [Volum e fraction]Ordered By: Renard Burgos on 03-06-2023 Hematocrit (Bld) [Volume fraction] 43.1 % 40-54 [facility] Laboratory - Chemistry and C hemistry - challengeOrdered By: Renard Burgos on 03-06-2023 ALP [Catalytic activity/Vol] 120 U/L 45-117 [facility] ALT [Catalytic activity/Vol] 20 U/L 16-61 [facility] CO2 [Moles/Vol] 30.0 mmol/L 21.0-32.0 [facility] Globulin (S) [Mass/Vol] 3.3 g/dL 2.2-4.2 [facility] Urea nitrogen/Creatinine [Mass ratio] 27.1 mg/mg 10-20 [facility] Laboratory - Hematology and Cell countsOrdered By: Renard Burgos on 03-06-2023 Erythrocyte distribution width (RBC) [Entitic vol] 42.5 fL 35.1-43.9 [facility] Erythrocyte distribution width (RBC) [Ratio] 12.9 % 11.6-14.6 [facility] Immature granulocytes/100 WBC (Bld) 0.500 % 0.0-0.9 [facility] Comment on above: IG% - Immature Granu locytes (promyelocytes, myelocytes and metamyelocytes) > 1% indicates that a LEFT SHIFT is Present. MCH (RBC) [Entitic mass] 29.9 pg 27.0-32.0 [facility] Nucleated RBC/100 WBC (Bld) [Ratio] 0 % 0-5 [facility] MCHC Auto (RBC) [Mass/Vol]Or dered By: Renard Burgos on 03-06-2023 MCHC (RBC) [Mass/Vol] 32.5 g/dL 32-36 [facility] No Panel InformationOrdered By: Renard Burgos on 03-06-2023 Estimated GFR (MDRD) Amer 165 mL/min >60 [facility] Comment on above: GFR Calc Estimated GFR (MDRD) Non-Af Amer 136 mL/min >60 [facility] Comment on above: Non- GFR Calc Platelets bldOrdered By: Lyubov Burgos on 03-06-2023 Platelets (Bld) [#/Vol] 232 10*3/uL 150-450 [facility] Serum or plasma albumin gordy urement (mass/volume)Ordered By: Renard Burgos on 03-06-2023 Albumin [Mass/Vol] 3.0 g/dL 3.2-5.0 [facility] Serum or plasma albumin/glob ulin mass ratioOrdered By: Renard Burgos on 03-06-2023 Albumin/Globulin [Mass ratio] 0.9 {ratio} 0.9-2.4 [facility] Serum or plasma calcium gordy urement (mass/volume)Ordered By: Renard Burgos on 03-06-2023 Calcium [Mass/Vol] 8.2 mg/dL 8.5-10.1 [facility] Serum or plasma cholesterol in HDL measurement (mass/volume)Ordered By: Renard Burgos on 03-06-2023 Cholesterol in HDL [Mass/Vol] 25 mg/dL >40 [facility] Comment on above: The drugs N-Acetylcy steine and Metamizole may falsely depress this assay. Reference Range HDL <40 mg/dL Low HDL Cholesterol HDL >or= 60 mg/dL High HDL Cholesterol Serum or plasma cholesterol in VLDL measurement (mass/volume)Ordered By: Renard Burgos on 03-06-2023 Cholesterol in VLDL [Mass/Vol] 37 mg/dL 5-40 [facility] Serum or plasma creatinine m easurement (mass/volume)Ordered By: Renard Burgos on 03-06-2023 Creatinine [Mass/Vol] 0.63 mg/dL 0.70-1.30 [facility] Comment on above: The validity of the calculated GFR & GFRAA in patients over 70 years has not been determined. Clinical correlation is essential. Serum or plasma low density lipoprotein (LDL) cholesterol measurement (mass/volume)Ordered By: Renard Burgos on 03-06-2023 Cholesterol in LDL [Mass/Vol] 56 mg/dL 0-130 [facility] Serum or plasma urea nitroge n measurement (mass/volume)Ordered By: Renard Burgos on 03-06-2023 Urea nitrogen [Mass/Vol] 17 mg/dL 7-18 [facility] Thin prep Papanicolaou smear with manual screeningOrdered By: Renard Burgos on 03-06-2023 Thin prep Papanicolaou smear with manual screening 10 U/L 15-37 [facility] Thin prep Papanicolaou smear with manual screening 4 5-15 [facility] Absolute lymphocyte countOrd ered By: Renard Burgos on 02-27-2023 Lymphocytes Auto (Unsp spec) [#/Vol] 2.13 10*3/uL 0.83-4.51 [facility] Basophil percentageOrdered B y: Renard Burgos on 02-27-2023 Basophils/100 WBC (Bld) 0.6 % 0-1 [facility] Eosinophils/100 WBC (Bld) 0.6 % 0-5 [facility] Neutrophils (Bld) [#/Vol] 5.1 10*3/uL 2.0-7.7 [facility] Neutrophils/100 WBC (Bld) 63.3 % 47-70 [facility] WBC (Bld) [#/Vol] 8.1 10*3/uL 4.4-11.0 [facility] Blood erythrocytes count (nu mber/volume)Ordered By: Renard Burgos on 02-27-2023 RBC (Bld) [#/Vol] 4.54 10*6/uL 4.6-6.2 [facility] Blood hemoglobin measurement (mass/volume)Ordered By: Renard Burgos on 02-27-2023 Hemoglobin (Bld) [Mass/Vol] 13.7 g/dL 13.0-16.5 [facility] Blood lymphocytes/100 leukoc ytesOrdered By: Renard Burgos on 02-27-2023 Lymphocytes/100 WBC (Bld) 26.4 % 19-41 [facility] Blood monocytes/100 leukocyt esOrdered By: Renard Burgos on 02-27-2023 Monocytes/100 WBC (Bld) 8.7 % 0-10 [facility] Blood platelet mean volumeOr dered By: Renard Burgos on 02-27-2023 Platelet mean volume (Bld) [Entitic vol] 10.8 fL 6.2-12.0 [facility] Determination of erythrocyte mean corpuscular volume (MCV)Ordered By: Renard Burgos on 02-27-2023 MCV (RBC) [Entitic vol] 89.9 fL 80-94 [facility] Hematocrit Auto (Bld) [Volum e fraction]Ordered By: Renard Burgos on 02-27-2023 Hematocrit (Bld) [Volume fraction] 40.8 % 40-54 [facility] Laboratory - Hematology and Cell countsOrdered By: Renard Burgos on 02-27-2023 Erythrocyte distribution width (RBC) [Entitic vol] 41.0 fL 35.1-43.9 [facility] Erythrocyte distribution width (RBC) [Ratio] 12.5 % 11.6-14.6 [facility] Immature granulocytes/100 WBC (Bld) 0.400 % 0.0-0.9 [facility] Comment on above: IG% - Immature Granu locytes (promyelocytes, myelocytes and metamyelocytes) > 1% indicates that a LEFT SHIFT is Present. MCH (RBC) [Entitic mass] 30.2 pg 27.0-32.0 [facility] Nucleated RBC/100 WBC (Bld) [Ratio] 0 % 0-5 [facility] MCHC Auto (RBC) [Mass/Vol]Or dered By: Renard Burgos on 02-27-2023 MCHC (RBC) [Mass/Vol] 33.6 g/dL 32-36 [facility] Platelets bldOrdered By: Pet shirley Loretta on 02-27-2023 Platelets (Bld) [#/Vol] 182 10*3/uL 150-450 [facility] Absolute lymphocyte countOrd ered By: Renard Burgos on 02-20-2023 Lymphocytes Auto (Unsp spec) [#/Vol] 2.23 10*3/uL 0.83-4.51 [facility] Basophil percentageOrdered B y: Renard Burgos on 02-20-2023 Basophils/100 WBC (Bld) 0.3 % 0-1 [facility] Eosinophils/100 WBC (Bld) 0.7 % 0-5 [facility] Neutrophils (Bld) [#/Vol] 5.9 10*3/uL 2.0-7.7 [facility] Neutrophils/100 WBC (Bld) 65.7 % 47-70 [facility] WBC (Bld) [#/Vol] 9.0 10*3/uL 4.4-11.0 [facility] Blood erythrocytes count (nu mber/volume)Ordered By: Renard Burgos on 02-20-2023 RBC (Bld) [#/Vol] 4.46 10*6/uL 4.6-6.2 [facility] Blood hemoglobin measurement (mass/volume)Ordered By: Renard Burgos on 02-20-2023 Hemoglobin (Bld) [Mass/Vol] 13.3 g/dL 13.0-16.5 [facility] Blood lymphocytes/100 leukoc ytesOrdered By: Renard Burgos on 02-20-2023 Lymphocytes/100 WBC (Bld) 24.7 % 19-41 [facility] Blood monocytes/100 leukocyt esOrdered By: Renard Burgos on 02-20-2023 Monocytes/100 WBC (Bld) 8.0 % 0-10 [facility] Blood platelet mean volumeOr dered By: Renard Burgos on 02-20-2023 Platelet mean volume (Bld) [Entitic vol] 10.7 fL 6.2-12.0 [facility] Determination of erythrocyte mean corpuscular volume (MCV)Ordered By: Renard Burgos on 02-20-2023 MCV (RBC) [Entitic vol] 90.6 fL 80-94 [facility] Hematocrit Auto (Bld) [Volum e fraction]Ordered By: Renard Burgos on 02-20-2023 Hematocrit (Bld) [Volume fraction] 40.4 % 40-54 [facility] Laboratory - Hematology and Cell countsOrdered By: Renard Burgos on 02-20-2023 Erythrocyte distribution width (RBC) [Entitic vol] 41.9 fL 35.1-43.9 [facility] Erythrocyte distribution width (RBC) [Ratio] 12.8 % 11.6-14.6 [facility] Immature granulocytes/100 WBC (Bld) 0.600 % 0.0-0.9 [facility] Comment on above: IG% - Immature Granu locytes (promyelocytes, myelocytes and metamyelocytes) > 1% indicates that a LEFT SHIFT is Present. MCH (RBC) [Entitic mass] 29.8 pg 27.0-32.0 [facility] Nucleated RBC/100 WBC (Bld) [Ratio] 0 % 0-5 [facility] MCHC Auto (RBC) [Mass/Vol]Or dered By: Renard Burgos on 02-20-2023 MCHC (RBC) [Mass/Vol] 32.9 g/dL 32-36 [facility] Platelets bldOrdered By: Lyubov Burgos on 02-20-2023 Platelets (Bld) [#/Vol] 220 10*3/uL 150-450 [facility] Absolute lymphocyte countOrd ered By: Renard Burgos on 02-13-2023 Lymphocytes Auto (Unsp spec) [#/Vol] 2.01 10*3/uL 0.83-4.51 [facility] Basophil percentageOrdered B y: Renard Burgos on 02-13-2023 Basophils/100 WBC (Bld) 0.7 % 0-1 [facility] Eosinophils/100 WBC (Bld) 0.5 % 0-5 [facility] Neutrophils (Bld) [#/Vol] 4.7 10*3/uL 2.0-7.7 [facility] Neutrophils/100 WBC (Bld) 63.3 % 47-70 [facility] WBC (Bld) [#/Vol] 7.4 10*3/uL 4.4-11.0 [facility] Blood erythrocytes count (nu mber/volume)Ordered By: Renard Burgos on 02-13-2023 RBC (Bld) [#/Vol] 4.46 10*6/uL 4.6-6.2 [facility] Blood hemoglobin measurement (mass/volume)Ordered By: Renard Burgos on 02-13-2023 Hemoglobin (Bld) [Mass/Vol] 13.6 g/dL 13.0-16.5 [facility] Blood lymphocytes/100 leukoc ytesOrdered By: Renard Burgos on 02-13-2023 Lymphocytes/100 WBC (Bld) 27.0 % 19-41 [facility] Blood monocytes/100 leukocyt esOrdered By: Renard Burgos on 02-13-2023 Monocytes/100 WBC (Bld) 8.1 % 0-10 [facility] Blood platelet mean volumeOr dered By: Renard Burgos on 02-13-2023 Platelet mean volume (Bld) [Entitic vol] 10.7 fL 6.2-12.0 [facility] Determination of erythrocyte mean corpuscular volume (MCV)Ordered By: Renard Burgos on 02-13-2023 MCV (RBC) [Entitic vol] 92.6 fL 80-94 [facility] Hematocrit Auto (Bld) [Volum e fraction]Ordered By: Renard Burgos on 02-13-2023 Hematocrit (Bld) [Volume fraction] 41.3 % 40-54 [facility] Laboratory - Hematology and Cell countsOrdered By: Renard Burgos on 02-13-2023 Erythrocyte distribution width (RBC) [Entitic vol] 42.7 fL 35.1-43.9 [facility] Erythrocyte distribution width (RBC) [Ratio] 12.6 % 11.6-14.6 [facility] Immature granulocytes/100 WBC (Bld) 0.400 % 0.0-0.9 [facility] Comment on above: IG% - Immature Granu locytes (promyelocytes, myelocytes and metamyelocytes) > 1% indicates that a LEFT SHIFT is Present. MCH (RBC) [Entitic mass] 30.5 pg 27.0-32.0 [facility] Nucleated RBC/100 WBC (Bld) [Ratio] 0 % 0-5 [facility] MCHC Auto (RBC) [Mass/Vol]Or dered By: Renard Burgos on 02-13-2023 MCHC (RBC) [Mass/Vol] 32.9 g/dL 32-36 [facility] Platelets bldOrdered By: Lyubov Burgos on 02-13-2023 Platelets (Bld) [#/Vol] 187 10*3/uL 150-450 [facility] Absolute lymphocyte countOrd ered By: Renard Burgos on 02-06-2023 Lymphocytes Auto (Unsp spec) [#/Vol] 2.28 10*3/uL 0.83-4.51 [facility] Basophil percentageOrdered B y: Renard Burgos on 02-06-2023 Basophils/100 WBC (Bld) 0.5 % 0-1 [facility] Eosinophils/100 WBC (Bld) 0.7 % 0-5 [facility] Neutrophils (Bld) [#/Vol] 5.5 10*3/uL 2.0-7.7 [facility] Neutrophils/100 WBC (Bld) 63.7 % 47-70 [facility] WBC (Bld) [#/Vol] 8.6 10*3/uL 4.4-11.0 [facility] Blood erythrocytes count (nu mber/volume)Ordered By: Renard Burgos on 02-06-2023 RBC (Bld) [#/Vol] 4.71 10*6/uL 4.6-6.2 [facility] Blood hemoglobin measurement (mass/volume)Ordered By: Renard Burgos on 02-06-2023 Hemoglobin (Bld) [Mass/Vol] 14.1 g/dL 13.0-16.5 [facility] Blood lymphocytes/100 leukoc ytesOrdered By: Renard Burgos on 02-06-2023 Lymphocytes/100 WBC (Bld) 26.4 % 19-41 [facility] Blood monocytes/100 leukocyt esOrdered By: Renard Burgos on 02-06-2023 Monocytes/100 WBC (Bld) 8.2 % 0-10 [facility] Blood platelet mean volumeOr dered By: Renard Burgos on 02-06-2023 Platelet mean volume (Bld) [Entitic vol] 11.0 fL 6.2-12.0 [facility] Determination of erythrocyte mean corpuscular volume (MCV)Ordered By: Renard Burgos on 02-06-2023 MCV (RBC) [Entitic vol] 94.5 fL 80-94 [facility] Hematocrit Auto (Bld) [Volum e fraction]Ordered By: Renard Burgos on 02-06-2023 Hematocrit (Bld) [Volume fraction] 44.5 % 40-54 [facility] Laboratory - Hematology and Cell countsOrdered By: Renard Burgos on 02-06-2023 Erythrocyte distribution width (RBC) [Entitic vol] 43.5 fL 35.1-43.9 [facility] Erythrocyte distribution width (RBC) [Ratio] 12.7 % 11.6-14.6 [facility] Immature granulocytes/100 WBC (Bld) 0.500 % 0.0-0.9 [facility] Comment on above: IG% - Immature Granu locytes (promyelocytes, myelocytes and metamyelocytes) > 1% indicates that a LEFT SHIFT is Present. MCH (RBC) [Entitic mass] 29.9 pg 27.0-32.0 [facility] Nucleated RBC/100 WBC (Bld) [Ratio] 0 % 0-5 [facility] MCHC Auto (RBC) [Mass/Vol]Or dered By: Renard Burgos on 02-06-2023 MCHC (RBC) [Mass/Vol] 31.7 g/dL 32-36 [facility] Platelets bldOrdered By: Lyubov Burgos on 02-06-2023 Platelets (Bld) [#/Vol] 196 10*3/uL 150-450 [facility] Absolute lymphocyte countOrd ered By: Renard Burgos on 01-30-2023 Lymphocytes Auto (Unsp spec) [#/Vol] 1.91 10*3/uL 0.83-4.51 [facility] Basophil percentageOrdered B y: Renard Burgos on 01-30-2023 Basophils/100 WBC (Bld) 0.5 % 0-1 [facility] Eosinophils/100 WBC (Bld) 0.5 % 0-5 [facility] Neutrophils (Bld) [#/Vol] 6.0 10*3/uL 2.0-7.7 [facility] Neutrophils/100 WBC (Bld) 69.4 % 47-70 [facility] WBC (Bld) [#/Vol] 8.7 10*3/uL 4.4-11.0 [facility] Basophil percentage 0 SEEN /hpf 0-5 [facility] Bilirubin Test strip Ql (U)O rdered By: Renard Burgos on 01-30-2023 Bilirubin Ql (U) Negative Negative [facility] Blood erythrocytes count (nu mber/volume)Ordered By: Renard Burgos on 01-30-2023 RBC (Bld) [#/Vol] 4.50 10*6/uL 4.6-6.2 [facility] Blood hemoglobin measurement (mass/volume)Ordered By: Renard Burgos on 01-30-2023 Hemoglobin (Bld) [Mass/Vol] 13.5 g/dL 13.0-16.5 [facility] Blood lymphocytes/100 leukoc ytesOrdered By: Renard Burgos on 01-30-2023 Lymphocytes/100 WBC (Bld) 22.1 % 19-41 [facility] Blood monocytes/100 leukocyt esOrdered By: Renard Burgos on 01-30-2023 Monocytes/100 WBC (Bld) 7.2 % 0-10 [facility] Blood platelet mean volumeOr dered By: Renard Burgos on 01-30-2023 Platelet mean volume (Bld) [Entitic vol] 11.1 fL 6.2-12.0 [facility] Culture, urineOrdered By: Garrick Bhatt on 01-30-2023 Bacteria identified Cx Nom (U) Positive [facility] Determination of erythrocyte mean corpuscular volume (MCV)Ordered By: Renard Burgos on 01-30-2023 MCV (RBC) [Entitic vol] 91.3 fL 80-94 [facility] Hematocrit Auto (Bld) [Volum e fraction]Ordered By: Renard Burgos on 01-30-2023 Hematocrit (Bld) [Volume fraction] 41.1 % 40-54 [facility] Ketones Test strip Ql (U)Ord ered By: Renard Burgos on 01-30-2023 Ketones Ql (U) Negative Negative [facility] Laboratory - Hematology and Cell countsOrdered By: Renard Burgos on 01-30-2023 Erythrocyte distribution width (RBC) [Entitic vol] 41.4 fL 35.1-43.9 [facility] Erythrocyte distribution width (RBC) [Ratio] 12.6 % 11.6-14.6 [facility] Immature granulocytes/100 WBC (Bld) 0.300 % 0.0-0.9 [facility] Comment on above: IG% - Immature Granu locytes (promyelocytes, myelocytes and metamyelocytes) > 1% indicates that a LEFT SHIFT is Present. MCH (RBC) [Entitic mass] 30.0 pg 27.0-32.0 [facility] Nucleated RBC/100 WBC (Bld) [Ratio] 0 % 0-5 [facility] MCHC Auto (RBC) [Mass/Vol]Or dered By: Renard Burgos on 01-30-2023 MCHC (RBC) [Mass/Vol] 32.8 g/dL 32-36 [facility] Mucus LM Ql (Urine sed)Order ed By: Renard Burgos on 01-30-2023 Mucus Ql (Urine sed) 0 SEEN /hpf [facility] Nitrite Test strip Ql (U)Ord ered By: Renard Burgos on 01-30-2023 Nitrite Ql (U) Negative Negative [facility] No Panel InformationOrdered By: Renard Burgos on 01-30-2023 Prostate Specific Antigen Screen 4.18 ng/mL 0.00-4.00 [facility] Comment on above: This test was perfor med using the TPSA assay method for theDimension chemistry system. Values obtained with differentassay methods cannot be used interchangably.When changing PSA assays in the course of monitoring apatient, additional sequential testing should be carriedout to confirm baseline values. Platelets bldOrdered By: Lyubov Burgos on 01-30-2023 Platelets (Bld) [#/Vol] 205 10*3/uL 150-450 [facility] Protein Test strip Ql (U)Ord ered By: Renard Burgos on 01-30-2023 Protein Ql (U) Negative Negative [facility] Squamous epithelial cells de tection in urine sediment by light microscopyOrdered By: Renard Burgos on 01-30-2023 Epithelial cells.squamous LM Ql (Urine sed) 0-5 SEEN /hpf 0-5 [facility] Urine blood detectionOrdered By: Renard Burgos on 01-30-2023 RBC Ql (U) Negative Negative [facility] RBC Ql (U) 0 SEEN /hpf 0-5 [facility] Urine clarityOrdered By: Lyubov Burgos on 01-30-2023 Clarity (U) Clear Clear [facility] Urine color determinationOrd ered By: Renard Burgos on 01-30-2023 Color (U) Yellow Yellow [facility] Urine glucose detectionOrder ed By: Renard Burgos on 01-30-2023 Glucose Ql (U) Normal mg/dl Normal [facility] Urine leukocyte esterase det ection by dipstickOrdered By: Renard Burgos on 01-30-2023 Leukocyte esterase Test strip Ql (U) Negative Negative [facility] Urine pHOrdered By: Renard ocampo on 01-30-2023 pH (U) 8.0 [pH] 5.0 - 8.0 [facility] Urine sediment bacteria coun t by microscopy (number/high power field)Ordered By: Renard Burgos on 01-30-2023 Bacteria LM.HPF (Urine sed) [#/Area] 0 /[HPF] None Seen [facility] Urine specific gravity measu rementOrdered By: Renard Burgos on 01-30-2023 Specific gravity (U) [Rel density] 1.010 1.002-1.030 [facility] Urobilinogen Auto test strip Ql (U)Ordered By: Renard Burgos on 01-30-2023 Urobilinogen Ql (U) Normal mg/dl Normal [facility] Absolute lymphocyte countOrd ered By: Renard Burgos on 01-23-2023 Lymphocytes Auto (Unsp spec) [#/Vol] 2.32 10*3/uL 0.83-4.51 [facility] Basophil percentageOrdered B y: Renard Burgos on 01-23-2023 Basophils/100 WBC (Bld) 0.6 % 0-1 [facility] Eosinophils/100 WBC (Bld) 0.4 % 0-5 [facility] Neutrophils (Bld) [#/Vol] 5.3 10*3/uL 2.0-7.7 [facility] Neutrophils/100 WBC (Bld) 62.7 % 47-70 [facility] WBC (Bld) [#/Vol] 8.4 10*3/uL 4.4-11.0 [facility] Blood erythrocytes count (nu mber/volume)Ordered By: Renard Burgos on 01-23-2023 RBC (Bld) [#/Vol] 4.49 10*6/uL 4.6-6.2 [facility] Blood hemoglobin measurement (mass/volume)Ordered By: Renard Burgos on 01-23-2023 Hemoglobin (Bld) [Mass/Vol] 13.6 g/dL 13.0-16.5 [facility] Blood lymphocytes/100 leukoc ytesOrdered By: Renard Burgos on 01-23-2023 Lymphocytes/100 WBC (Bld) 27.5 % 19-41 [facility] Blood monocytes/100 leukocyt esOrdered By: Renard Burgos on 01-23-2023 Monocytes/100 WBC (Bld) 8.2 % 0-10 [facility] Blood platelet mean volumeOr dered By: Renard Burgos on 01-23-2023 Platelet mean volume (Bld) [Entitic vol] 10.9 fL 6.2-12.0 [facility] Determination of erythrocyte mean corpuscular volume (MCV)Ordered By: Renard Burgos on 01-23-2023 MCV (RBC) [Entitic vol] 93.1 fL 80-94 [facility] Hematocrit Auto (Bld) [Volum e fraction]Ordered By: Renard Burgos on 01-23-2023 Hematocrit (Bld) [Volume fraction] 41.8 % 40-54 [facility] Laboratory - Hematology and Cell countsOrdered By: Renard Burgos on 01-23-2023 Erythrocyte distribution width (RBC) [Entitic vol] 42.7 fL 35.1-43.9 [facility] Erythrocyte distribution width (RBC) [Ratio] 12.6 % 11.6-14.6 [facility] Immature granulocytes/100 WBC (Bld) 0.600 % 0.0-0.9 [facility] Comment on above: IG% - Immature Granu locytes (promyelocytes, myelocytes and metamyelocytes) > 1% indicates that a LEFT SHIFT is Present. MCH (RBC) [Entitic mass] 30.3 pg 27.0-32.0 [facility] Nucleated RBC/100 WBC (Bld) [Ratio] 0 % 0-5 [facility] MCHC Auto (RBC) [Mass/Vol]Or dered By: Renard Burgos on 01-23-2023 MCHC (RBC) [Mass/Vol] 32.5 g/dL 32-36 [facility] Platelets bldOrdered By: [facility] on 01-[facility]23 Platelets (Bld) [#/Vol] 220 10*3/uL 150-450 [facility] Absolute lymphocyte countOrd ered By: Renard Burgos on 01-16-2023 Lymphocytes Auto (Unsp spec) [#/Vol] 1.80 10*3/uL 0.83-4.51 [facility] Basophil percentageOrdered B y: Renard Burgos on 01-16-2023 Basophils/100 WBC (Bld) 0.4 % 0-1 [facility] Eosinophils/100 WBC (Bld) 0.4 % 0-5 [facility] Neutrophils (Bld) [#/Vol] 7.2 10*3/uL 2.0-7.7 [facility] Neutrophils/100 WBC (Bld) 73.5 % 47-70 [facility] WBC (Bld) [#/Vol] 9.8 10*3/uL 4.4-11.0 [facility] Blood erythrocytes count (nu mber/volume)Ordered By: Renard Burgos on 01-16-2023 RBC (Bld) [#/Vol] 4.77 10*6/uL 4.6-6.2 [facility] Blood hemoglobin measurement (mass/volume)Ordered By: Renard Burgos on 01-16-2023 Hemoglobin (Bld) [Mass/Vol] 14.1 g/dL 13.0-16.5 [facility] Blood lymphocytes/100 leukoc ytesOrdered By: Renard Burgos on 01-16-2023 Lymphocytes/100 WBC (Bld) 18.4 % 19-41 [facility] Blood monocytes/100 leukocyt esOrdered By: Renard Burgos on 01-16-2023 Monocytes/100 WBC (Bld) 6.9 % 0-10 [facility] Blood platelet mean volumeOr dered By: Renard Burgos on 01-16-2023 Platelet mean volume (Bld) [Entitic vol] 10.6 fL 6.2-12.0 [facility] Determination of erythrocyte mean corpuscular volume (MCV)Ordered By: Renard Burgos on 01-16-2023 MCV (RBC) [Entitic vol] 92.5 fL 80-94 [facility] Hematocrit Auto (Bld) [Volum e fraction]Ordered By: Renard Burgos on 01-16-2023 Hematocrit (Bld) [Volume fraction] 44.1 % 40-54 [facility] Laboratory - Hematology and Cell countsOrdered By: Renard Burgos on 01-16-2023 Erythrocyte distribution width (RBC) [Entitic vol] 41.8 fL 35.1-43.9 [facility] Erythrocyte distribution width (RBC) [Ratio] 12.4 % 11.6-14.6 [facility] Immature granulocytes/100 WBC (Bld) 0.400 % 0.0-0.9 [facility] Comment on above: IG% - Immature Granu locytes (promyelocytes, myelocytes and metamyelocytes) > 1% indicates that a LEFT SHIFT is Present. MCH (RBC) [Entitic mass] 29.6 pg 27.0-32.0 [facility] Nucleated RBC/100 WBC (Bld) [Ratio] 0 % 0-5 [facility] MCHC Auto (RBC) [Mass/Vol]Or dered By: Renard Burgos on 01-16-2023 MCHC (RBC) [Mass/Vol] 32.0 g/dL 32-36 [facility] Platelets bldOrdered By: Lyubov Burgos on 01-16-2023 Platelets (Bld) [#/Vol] 221 10*3/uL 150-450 [facility] Absolute lymphocyte countOrd ered By: Renard Burgos on 01-09-2023 Lymphocytes Auto (Unsp spec) [#/Vol] 2.41 10*3/uL 0.83-4.51 [facility] Basophil percentageOrdered B y: Renard Burgos on 01-09-2023 Basophils/100 WBC (Bld) 0.7 % 0-1 [facility] Eosinophils/100 WBC (Bld) 0.8 % 0-5 [facility] Neutrophils (Bld) [#/Vol] 5.4 10*3/uL 2.0-7.7 [facility] Neutrophils/100 WBC (Bld) 60.5 % 47-70 [facility] WBC (Bld) [#/Vol] 8.9 10*3/uL 4.4-11.0 [facility] Blood erythrocytes count (nu mber/volume)Ordered By: Renard Burgos on 01-09-2023 RBC (Bld) [#/Vol] 4.56 10*6/uL 4.6-6.2 [facility] Blood hemoglobin measurement (mass/volume)Ordered By: Renard Burgos on 01-09-2023 Hemoglobin (Bld) [Mass/Vol] 13.8 g/dL 13.0-16.5 [facility] Blood lymphocytes/100 leukoc ytesOrdered By: Renard Burgos on 01-09-2023 Lymphocytes/100 WBC (Bld) 27.0 % 19-41 [facility] Blood monocytes/100 leukocyt esOrdered By: Renard Burgos on 01-09-2023 Monocytes/100 WBC (Bld) 10.7 % 0-10 [facility] Blood platelet mean volumeOr dered By: Renard Burgos on 01-09-2023 Platelet mean volume (Bld) [Entitic vol] 10.8 fL 6.2-12.0 [facility] Determination of erythrocyte mean corpuscular volume (MCV)Ordered By: Renard Burgos on 01-09-2023 MCV (RBC) [Entitic vol] 92.5 fL 80-94 [facility] Hematocrit Auto (Bld) [Volum e fraction]Ordered By: Renard Burgos on 01-09-2023 Hematocrit (Bld) [Volume fraction] 42.2 % 40-54 [facility] Laboratory - Hematology and Cell countsOrdered By: Renard Burgos on 01-09-2023 Erythrocyte distribution width (RBC) [Entitic vol] 42.7 fL 35.1-43.9 [facility] Erythrocyte distribution width (RBC) [Ratio] 12.5 % 11.6-14.6 [facility] Immature granulocytes/100 WBC (Bld) 0.300 % 0.0-0.9 [facility] Comment on above: IG% - Immature Granu locytes (promyelocytes, myelocytes and metamyelocytes) > 1% indicates that a LEFT SHIFT is Present. MCH (RBC) [Entitic mass] 30.3 pg 27.0-32.0 [facility] Nucleated RBC/100 WBC (Bld) [Ratio] 0 % 0-5 [facility] MCHC Auto (RBC) [Mass/Vol]Or dered By: Renard Burgos on 01-09-2023 MCHC (RBC) [Mass/Vol] 32.7 g/dL 32-36 [facility] Platelets bldOrdered By: Lyubov Burgos on 01-09-2023 Platelets (Bld) [#/Vol] 209 10*3/uL 150-450 [facility] Absolute lymphocyte countOrd ered By: Renard Burgos on 01-03-2023 Lymphocytes Auto (Unsp spec) [#/Vol] 2.18 10*3/uL 0.83-4.51 [facility] Basophil percentageOrdered B y: Renard Burgos on 01-03-2023 Basophils/100 WBC (Bld) 0.6 % 0-1 [facility] Eosinophils/100 WBC (Bld) 0.5 % 0-5 [facility] Neutrophils (Bld) [#/Vol] 5.4 10*3/uL 2.0-7.7 [facility] Neutrophils/100 WBC (Bld) 64.2 % 47-70 [facility] WBC (Bld) [#/Vol] 8.4 10*3/uL 4.4-11.0 [facility] Blood erythrocytes count (nu mber/volume)Ordered By: Renard Burgos on 01-03-2023 RBC (Bld) [#/Vol] 4.59 10*6/uL 4.6-6.2 [facility] Blood hemoglobin measurement (mass/volume)Ordered By: Renard Burgos on 01-03-2023 Hemoglobin (Bld) [Mass/Vol] 13.9 g/dL 13.0-16.5 [facility] Blood lymphocytes/100 leukoc ytesOrdered By: Renard Burgos on 01-03-2023 Lymphocytes/100 WBC (Bld) 25.9 % 19-41 [facility] Blood monocytes/100 leukocyt esOrdered By: Renard Burgos on 01-03-2023 Monocytes/100 WBC (Bld) 8.3 % 0-10 [facility] Blood platelet mean volumeOr dered By: Renard Burgos on 01-03-2023 Platelet mean volume (Bld) [Entitic vol] 11.0 fL 6.2-12.0 [facility] Determination of erythrocyte mean corpuscular volume (MCV)Ordered By: Renard Burgos on 01-03-2023 MCV (RBC) [Entitic vol] 92.8 fL 80-94 [facility] Hematocrit Auto (Bld) [Volum e fraction]Ordered By: Renard Burgos on 01-03-2023 Hematocrit (Bld) [Volume fraction] 42.6 % 40-54 [facility] Laboratory - Hematology and Cell countsOrdered By: Renard Burgos on 01-03-2023 Erythrocyte distribution width (RBC) [Entitic vol] 42.5 fL 35.1-43.9 [facility] Erythrocyte distribution width (RBC) [Ratio] 12.6 % 11.6-14.6 [facility] Immature granulocytes/100 WBC (Bld) 0.500 % 0.0-0.9 [facility] Comment on above: IG% - Immature Granu locytes (promyelocytes, myelocytes and metamyelocytes) > 1% indicates that a LEFT SHIFT is Present. MCH (RBC) [Entitic mass] 30.3 pg 27.0-32.0 [facility] Nucleated RBC/100 WBC (Bld) [Ratio] 0 % 0-5 [facility] MCHC Auto (RBC) [Mass/Vol]Or dered By: Renard Burgos on 01-03-2023 MCHC (RBC) [Mass/Vol] 32.6 g/dL 32-36 [facility] No Panel InformationOrdered By: Renard Burgos on 01-03-2023 Prostate Specific Antigen Screen 3.37 ng/mL 0.00-4.00 [facility] Comment on above: This test was perfor med using the TPSA assay method for the[employer] chemistry system. Values obtained with differentassay methods cannot be used interchangably.When changing PSA assays in the course of monitoring apatient, additional sequential testing should be carriedout to confirm baseline values. Platelets bldOrdered By: Lyubov Burgos on 01-03-2023 Platelets (Bld) [#/Vol] 200 10*3/uL 150-450 [facility] Absolute lymphocyte countOrd ered By: Renard Burgos on 12-26-2022 Lymphocytes Auto (Unsp spec) [#/Vol] 1.80 10*3/uL 0.83-4.51 [facility] Basophil percentageOrdered B y: Renard Burgos on 12-26-2022 Basophils/100 WBC (Bld) 0.4 % 0-1 [facility] Eosinophils/100 WBC (Bld) 0.6 % 0-5 [facility] Neutrophils (Bld) [#/Vol] 6.2 10*3/uL 2.0-7.7 [facility] Neutrophils/100 WBC (Bld) 69.8 % 47-70 [facility] WBC (Bld) [#/Vol] 8.9 10*3/uL 4.4-11.0 [facility] Blood erythrocytes count (nu mber/volume)Ordered By: Renard Burgos on 12-26-2022 RBC (Bld) [#/Vol] 4.58 10*6/uL 4.6-6.2 [facility] Blood hemoglobin measurement (mass/volume)Ordered By: Renard Burgos on 12-26-2022 Hemoglobin (Bld) [Mass/Vol] 14.0 g/dL 13.0-16.5 [facility] Blood lymphocytes/100 leukoc ytesOrdered By: Renard Burgos on 12-26-2022 Lymphocytes/100 WBC (Bld) 20.2 % 19-41 [facility] Blood monocytes/100 leukocyt esOrdered By: Renard Burgos on 12-26-2022 Monocytes/100 WBC (Bld) 8.6 % 0-10 [facility] Blood platelet mean volumeOr dered By: Renard Burgos on 12-26-2022 Platelet mean volume (Bld) [Entitic vol] 10.8 fL 6.2-12.0 [facility] Determination of erythrocyte mean corpuscular volume (MCV)Ordered By: Renard Burgos on 12-26-2022 MCV (RBC) [Entitic vol] 93.2 fL 80-94 [facility] Hematocrit Auto (Bld) [Volum e fraction]Ordered By: Renard Burgos on 12-26-2022 Hematocrit (Bld) [Volume fraction] 42.7 % 40-54 [facility] Laboratory - Hematology and Cell countsOrdered By: Renard Burgos on 12-26-2022 Erythrocyte distribution width (RBC) [Entitic vol] 42.5 fL 35.1-43.9 [facility] Erythrocyte distribution width (RBC) [Ratio] 12.5 % 11.6-14.6 [facility] Immature granulocytes/100 WBC (Bld) 0.400 % 0.0-0.9 [facility] Comment on above: IG% - Immature Granu locytes (promyelocytes, myelocytes and metamyelocytes) > 1% indicates that a LEFT SHIFT is Present. MCH (RBC) [Entitic mass] 30.6 pg 27.0-32.0 [facility] Nucleated RBC/100 WBC (Bld) [Ratio] 0 % 0-5 [facility] MCHC Auto (RBC) [Mass/Vol]Or dered By: Renard Burgos on 12-26-2022 MCHC (RBC) [Mass/Vol] 32.8 g/dL 32-36 [facility] Platelets bldOrdered By: Lyubov Burgos on 12-26-2022 Platelets (Bld) [#/Vol] 200 10*3/uL 150-450 [facility] Absolute lymphocyte countOrd ered By: Renard Burgos on 12-19-2022 Lymphocytes Auto (Unsp spec) [#/Vol] 2.24 10*3/uL 0.83-4.51 [facility] Basophil percentageOrdered B y: Renadr Burgos on 12-19-2022 Basophils/100 WBC (Bld) 0.3 % 0-1 [facility] Eosinophils/100 WBC (Bld) 0.8 % 0-5 [facility] Neutrophils (Bld) [#/Vol] 5.7 10*3/uL 2.0-7.7 [facility] Neutrophils/100 WBC (Bld) 64.1 % 47-70 [facility] WBC (Bld) [#/Vol] 8.9 10*3/uL 4.4-11.0 [facility] Blood erythrocytes count (nu mber/volume)Ordered By: Renard Burgos on 12-19-2022 RBC (Bld) [#/Vol] 4.44 10*6/uL 4.6-6.2 [facility] Blood hemoglobin measurement (mass/volume)Ordered By: Renard Burgos on 12-19-2022 Hemoglobin (Bld) [Mass/Vol] 13.5 g/dL 13.0-16.5 [facility] Blood lymphocytes/100 leukoc ytesOrdered By: Renard Burgos on 12-19-2022 Lymphocytes/100 WBC (Bld) 25.1 % 19-41 [facility] Blood monocytes/100 leukocyt esOrdered By: Renard Burgos on 12-19-2022 Monocytes/100 WBC (Bld) 9.4 % 0-10 [facility] Blood platelet mean volumeOr dered By: Renard Burgos on 12-19-2022 Platelet mean volume (Bld) [Entitic vol] 11.0 fL 6.2-12.0 [facility] Determination of erythrocyte mean corpuscular volume (MCV)Ordered By: Renard Burgos on 12-19-2022 MCV (RBC) [Entitic vol] 92.8 fL 80-94 [facility] Hematocrit Auto (Bld) [Volum e fraction]Ordered By: Renard Burgos on 12-19-2022 Hematocrit (Bld) [Volume fraction] 41.2 % 40-54 [facility] Laboratory - Hematology and Cell countsOrdered By: Renard Burgos on 12-19-2022 Erythrocyte distribution width (RBC) [Entitic vol] 43.2 fL 35.1-43.9 [facility] Erythrocyte distribution width (RBC) [Ratio] 12.7 % 11.6-14.6 [facility] Immature granulocytes/100 WBC (Bld) 0.300 % 0.0-0.9 [facility] Comment on above: IG% - Immature Granu locytes (promyelocytes, myelocytes and metamyelocytes) > 1% indicates that a LEFT SHIFT is Present. MCH (RBC) [Entitic mass] 30.4 pg 27.0-32.0 [facility] Nucleated RBC/100 WBC (Bld) [Ratio] 0 % 0-5 [facility] MCHC Auto (RBC) [Mass/Vol]Or dered By: Renard Burgos on 12-19-2022 MCHC (RBC) [Mass/Vol] 32.8 g/dL 32-36 [facility] Platelets bldOrdered By: [facility] Burgos on 12-19-2022 Platelets (Bld) [#/Vol] 194 10*3/uL 150-450 [facility] Absolute lymphocyte countOrd ered By: Renard Burgos on 12-12-2022 Lymphocytes Auto (Unsp spec) [#/Vol] 2.33 10*3/uL 0.83-4.51 [facility] Basophil percentageOrdered B y: Renard Burgos on 12-12-2022 Basophils/100 WBC (Bld) 0.6 % 0-1 [facility] Eosinophils/100 WBC (Bld) 0.9 % 0-5 [facility] Neutrophils (Bld) [#/Vol] 5.8 10*3/uL 2.0-7.7 [facility] Neutrophils/100 WBC (Bld) 63.5 % 47-70 [facility] WBC (Bld) [#/Vol] 9.1 10*3/uL 4.4-11.0 [facility] Blood erythrocytes count (nu mber/volume)Ordered By: Renard Burgos on 12-12-2022 RBC (Bld) [#/Vol] 4.52 10*6/uL 4.6-6.2 [facility] Blood hemoglobin measurement (mass/volume)Ordered By: Renard Burgos on 12-12-2022 Hemoglobin (Bld) [Mass/Vol] 13.9 g/dL 13.0-16.5 [facility] Blood lymphocytes/100 leukoc ytesOrdered By: Renard Burgos on 12-12-2022 Lymphocytes/100 WBC (Bld) 25.6 % 19-41 [facility] Blood monocytes/100 leukocyt esOrdered By: Renard Burgos on 12-12-2022 Monocytes/100 WBC (Bld) 9.1 % 0-10 [facility] Blood platelet mean volumeOr dered By: Renard Burgos on 12-12-2022 Platelet mean volume (Bld) [Entitic vol] 10.9 fL 6.2-12.0 [facility] Determination of erythrocyte mean corpuscular volume (MCV)Ordered By: Renard Burgos on 12-12-2022 MCV (RBC) [Entitic vol] 94.2 fL 80-94 [facility] Hematocrit Auto (Bld) [Volum e fraction]Ordered By: Renard Burgos on 12-12-2022 Hematocrit (Bld) [Volume fraction] 42.6 % 40-54 [facility] Laboratory - Hematology and Cell countsOrdered By: Renard Burgos on 12-12-2022 Erythrocyte distribution width (RBC) [Entitic vol] 44.3 fL 35.1-43.9 [facility] Erythrocyte distribution width (RBC) [Ratio] 12.8 % 11.6-14.6 [facility] Immature granulocytes/100 WBC (Bld) 0.300 % 0.0-0.9 [facility] Comment on above: IG% - Immature Granu locytes (promyelocytes, myelocytes and metamyelocytes) > 1% indicates that a LEFT SHIFT is Present. MCH (RBC) [Entitic mass] 30.8 pg 27.0-32.0 [facility] Nucleated RBC/100 WBC (Bld) [Ratio] 0 % 0-5 [facility] MCHC Auto (RBC) [Mass/Vol]Or dered By: Renard Burgos on 12-12-2022 MCHC (RBC) [Mass/Vol] 32.6 g/dL 32-36 [facility] Platelets bldOrdered By: Lyubov Burgos on 12-12-2022 Platelets (Bld) [#/Vol] 211 10*3/uL 150-450 [facility] Absolute lymphocyte countOrd ered By: Renard Burgos on 12-05-2022 Lymphocytes Auto (Unsp spec) [#/Vol] 1.94 10*3/uL 0.83-4.51 [facility] Basophil percentageOrdered B y: Renard Burgos on 12-05-2022 Basophils/100 WBC (Bld) 0.4 % 0-1 [facility] Eosinophils/100 WBC (Bld) 0.9 % 0-5 [facility] Neutrophils (Bld) [#/Vol] 4.1 10*3/uL 2.0-7.7 [facility] Neutrophils/100 WBC (Bld) 61.2 % 47-70 [facility] WBC (Bld) [#/Vol] 6.7 10*3/uL 4.4-11.0 [facility] Blood erythrocytes count (nu mber/volume)Ordered By: Renard Burgos on 12-05-2022 RBC (Bld) [#/Vol] 4.39 10*6/uL 4.6-6.2 [facility] Blood hemoglobin measurement (mass/volume)Ordered By: Renard Burgos on 12-05-2022 Hemoglobin (Bld) [Mass/Vol] 13.3 g/dL 13.0-16.5 [facility] Blood lymphocytes/100 leukoc ytesOrdered By: Renrad Burgos on 12-05-2022 Lymphocytes/100 WBC (Bld) 28.8 % 19-41 [facility] Blood monocytes/100 leukocyt esOrdered By: Renard Burgos on 12-05-2022 Monocytes/100 WBC (Bld) 8.3 % 0-10 [facility] Blood platelet mean volumeOr dered By: Renard Burgos on 12-05-2022 Platelet mean volume (Bld) [Entitic vol] 10.8 fL 6.2-12.0 [facility] Determination of erythrocyte mean corpuscular volume (MCV)Ordered By: Renard Bugros on 12-05-2022 MCV (RBC) [Entitic vol] 90.7 fL 80-94 [facility] Hematocrit Auto (Bld) [Volum e fraction]Ordered By: Renard Burgos on 12-05-2022 Hematocrit (Bld) [Volume fraction] 39.8 % 40-54 [facility] Laboratory - Hematology and Cell countsOrdered By: Renard Burgos on 12-05-2022 Erythrocyte distribution width (RBC) [Entitic vol] 41.8 fL 35.1-43.9 [facility] Erythrocyte distribution width (RBC) [Ratio] 12.6 % 11.6-14.6 [facility] Immature granulocytes/100 WBC (Bld) 0.400 % 0.0-0.9 [facility] Comment on above: IG% - Immature Granu locytes (promyelocytes, myelocytes and metamyelocytes) > 1% indicates that a LEFT SHIFT is Present. MCH (RBC) [Entitic mass] 30.3 pg 27.0-32.0 [facility] Nucleated RBC/100 WBC (Bld) [Ratio] 0 % 0-5 [facility] MCHC Auto (RBC) [Mass/Vol]Or dered By: Renard Burgos on 12-05-2022 MCHC (RBC) [Mass/Vol] 33.4 g/dL 32-36 [facility] Platelets bldOrdered By: Lyubov Burgos on 12-05-2022 Platelets (Bld) [#/Vol] 208 10*3/uL 150-450 [facility] Absolute lymphocyte countOrd ered By: Renard Bugros on 11-28-2022 Lymphocytes Auto (Unsp spec) [#/Vol] 2.07 10*3/uL 0.83-4.51 [facility] Basophil percentageOrdered B y: Renard Burgos on 11-28-2022 Basophils/100 WBC (Bld) 0.4 % 0-1 [facility] Eosinophils/100 WBC (Bld) 0.6 % 0-5 [facility] Neutrophils (Bld) [#/Vol] 5.1 10*3/uL 2.0-7.7 [facility] Neutrophils/100 WBC (Bld) 64.6 % 47-70 [facility] WBC (Bld) [#/Vol] 7.9 10*3/uL 4.4-11.0 [facility] Blood erythrocytes count (nu mber/volume)Ordered By: Renard Burgos on 11-28-2022 RBC (Bld) [#/Vol] 4.54 10*6/uL 4.6-6.2 [facility] Blood hemoglobin measurement (mass/volume)Ordered By: Renard Burgos on 11-28-2022 Hemoglobin (Bld) [Mass/Vol] 13.7 g/dL 13.0-16.5 [facility] Blood lymphocytes/100 leukoc ytesOrdered By: Renard Burgos on 11-28-2022 Lymphocytes/100 WBC (Bld) 26.2 % 19-41 [facility] Blood monocytes/100 leukocyt esOrdered By: Renard Burgos on 11-28-2022 Monocytes/100 WBC (Bld) 7.7 % 0-10 [facility] Blood platelet mean volumeOr dered By: Renard Burgos on 11-28-2022 Platelet mean volume (Bld) [Entitic vol] 10.6 fL 6.2-12.0 [facility] Determination of erythrocyte mean corpuscular volume (MCV)Ordered By: Renard Burgos on 11-28-2022 MCV (RBC) [Entitic vol] 93.6 fL 80-94 [facility] Hematocrit Auto (Bld) [Volum e fraction]Ordered By: Renard Burgos on 11-28-2022 Hematocrit (Bld) [Volume fraction] 42.5 % 40-54 [facility] Laboratory - Hematology and Cell countsOrdered By: Renard Burgos on 11-28-2022 Erythrocyte distribution width (RBC) [Entitic vol] 43.5 fL 35.1-43.9 [facility] Erythrocyte distribution width (RBC) [Ratio] 12.7 % 11.6-14.6 [facility] Immature granulocytes/100 WBC (Bld) 0.500 % 0.0-0.9 [facility] Comment on above: IG% - Immature Granu locytes (promyelocytes, myelocytes and metamyelocytes) > 1% indicates that a LEFT SHIFT is Present. MCH (RBC) [Entitic mass] 30.2 pg 27.0-32.0 [facility] Nucleated RBC/100 WBC (Bld) [Ratio] 0 % 0-5 [facility] MCHC Auto (RBC) [Mass/Vol]Or dered By: Renard Burgos on 11-28-2022 MCHC (RBC) [Mass/Vol] 32.2 g/dL 32-36 [facility] Platelets bldOrdered By: Lyubov Burgos on 11-28-2022 Platelets (Bld) [#/Vol] 201 10*3/uL 150-450 [facility] Absolute lymphocyte countOrd ered By: Renard Burgos on 11-21-2022 Lymphocytes Auto (Unsp spec) [#/Vol] 2.32 10*3/uL 0.83-4.51 [facility] Basophil percentageOrdered B y: Renard Burgos on 11-21-2022 Basophils/100 WBC (Bld) 0.6 % 0-1 [facility] Eosinophils/100 WBC (Bld) 0.7 % 0-5 [facility] Neutrophils (Bld) [#/Vol] 5.0 10*3/uL 2.0-7.7 [facility] Neutrophils/100 WBC (Bld) 60.6 % 47-70 [facility] WBC (Bld) [#/Vol] 8.2 10*3/uL 4.4-11.0 [facility] Blood erythrocytes count (nu mber/volume)Ordered By: Renard Burgos on 11-21-2022 RBC (Bld) [#/Vol] 4.71 10*6/uL 4.6-6.2 [facility] Blood hemoglobin measurement (mass/volume)Ordered By: Renard Burgos on 11-21-2022 Hemoglobin (Bld) [Mass/Vol] 14.3 g/dL 13.0-16.5 [facility] Blood lymphocytes/100 leukoc ytesOrdered By: Renard Burgos on 11-21-2022 Lymphocytes/100 WBC (Bld) 28.2 % 19-41 [facility] Blood monocytes/100 leukocyt esOrdered By: Renard Burgos on 11-21-2022 Monocytes/100 WBC (Bld) 9.2 % 0-10 [facility] Blood platelet mean volumeOr dered By: Renard Burgos on 11-21-2022 Platelet mean volume (Bld) [Entitic vol] 10.4 fL 6.2-12.0 [facility] Determination of erythrocyte mean corpuscular volume (MCV)Ordered By: Renard Burgos on 11-21-2022 MCV (RBC) [Entitic vol] 91.9 fL 80-94 [facility] Hematocrit Auto (Bld) [Volum e fraction]Ordered By: Renard Burgos on 11-21-2022 Hematocrit (Bld) [Volume fraction] 43.3 % 40-54 [facility] Laboratory - Hematology and Cell countsOrdered By: Renard Burgos on 11-21-2022 Erythrocyte distribution width (RBC) [Entitic vol] 43.1 fL 35.1-43.9 [facility] Erythrocyte distribution width (RBC) [Ratio] 12.8 % 11.6-14.6 [facility] Immature granulocytes/100 WBC (Bld) 0.700 % 0.0-0.9 [facility] Comment on above: IG% - Immature Granu locytes (promyelocytes, myelocytes and metamyelocytes) > 1% indicates that a LEFT SHIFT is Present. MCH (RBC) [Entitic mass] 30.4 pg 27.0-32.0 [facility] Nucleated RBC/100 WBC (Bld) [Ratio] 0 % 0-5 [facility] MCHC Auto (RBC) [Mass/Vol]Or dered By: Renard Burgos on 11-21-2022 MCHC (RBC) [Mass/Vol] 33.0 g/dL 32-36 [facility] Platelets bldOrdered By: Lyubov Burgos on 11-21-2022 Platelets (Bld) [#/Vol] 219 10*3/uL 150-450 [facility] Absolute lymphocyte countOrd ered By: Renard Burgos on 11-14-2022 Lymphocytes Auto (Unsp spec) [#/Vol] 1.82 10*3/uL 0.83-4.51 [facility] Basophil percentageOrdered B y: Renard Burgos on 11-14-2022 Basophils/100 WBC (Bld) 0.4 % 0-1 [facility] Chloride [Moles/Vol] 107 mmol/L 98-107 [facility] Eosinophils/100 WBC (Bld) 0.4 % 0-5 [facility] Glucose [Mass/Vol] 121 mg/dL 74-106 [facility] Comment on above: Fasting Glucose resu lt from 100 to 125 mg/dL suggests IMPAIRED HOMEOSTASIS per A.D.A. criteria. Neutrophils (Bld) [#/Vol] 4.7 10*3/uL 2.0-7.7 [facility] Neutrophils/100 WBC (Bld) 66.6 % 47-70 [facility] Potassium [Moles/Vol] 3.7 mmol/L 3.5-5.1 [facility] Sodium [Moles/Vol] 141 mmol/L 136-145 [facility] WBC (Bld) [#/Vol] 7.1 10*3/uL 4.4-11.0 [facility] Blood erythrocytes count (nu mber/volume)Ordered By: Renard Burgos on 11-14-2022 RBC (Bld) [#/Vol] 4.35 10*6/uL 4.6-6.2 [facility] Blood hemoglobin measurement (mass/volume)Ordered By: Renard Burgos on 11-14-2022 Hemoglobin (Bld) [Mass/Vol] 13.6 g/dL 13.0-16.5 [facility] Blood lymphocytes/100 leukoc ytesOrdered By: Renard Burgos on 11-14-2022 Lymphocytes/100 WBC (Bld) 25.6 % 19-41 [facility] Blood monocytes/100 leukocyt esOrdered By: Renard Burgos on 11-14-2022 Monocytes/100 WBC (Bld) 6.6 % 0-10 [facility] Blood platelet mean volumeOr dered By: Renard Burgos on 11-14-2022 Platelet mean volume (Bld) [Entitic vol] 10.9 fL 6.2-12.0 [facility] Determination of erythrocyte mean corpuscular volume (MCV)Ordered By: Renard Burgos on 11-14-2022 MCV (RBC) [Entitic vol] 93.3 fL 80-94 [facility] Hematocrit Auto (Bld) [Volum e fraction]Ordered By: Renard Burgos on 11-14-2022 Hematocrit (Bld) [Volume fraction] 40.6 % 40-54 [facility] Laboratory - Chemistry and C hemistry - challengeOrdered By: Renard Burgos on 11-14-2022 CO2 [Moles/Vol] 31.0 mmol/L 21.0-32.0 [facility] Urea nitrogen/Creatinine [Mass ratio] 26.0 mg/mg 10-20 [facility] Laboratory - Hematology and Cell countsOrdered By: Renard Burgos on 11-14-2022 Erythrocyte distribution width (RBC) [Entitic vol] 43.9 fL 35.1-43.9 [facility] Erythrocyte distribution width (RBC) [Ratio] 12.8 % 11.6-14.6 [facility] Immature granulocytes/100 WBC (Bld) 0.400 % 0.0-0.9 [facility] Comment on above: IG% - Immature Granu locytes (promyelocytes, myelocytes and metamyelocytes) > 1% indicates that a LEFT SHIFT is Present. MCH (RBC) [Entitic mass] 31.3 pg 27.0-32.0 [facility] Nucleated RBC/100 WBC (Bld) [Ratio] 0 % 0-5 [facility] MCHC Auto (RBC) [Mass/Vol]Or dered By: Renard Burgos on 11-14-2022 MCHC (RBC) [Mass/Vol] 33.5 g/dL 32-36 [facility] No Panel InformationOrdered By: Renard Burgos on 11-14-2022 Estimated GFR (MDRD) Amer 147 mL/min >60 [facility] Comment on above: GFR Calc Estimated GFR (MDRD) Non-Af Amer 122 mL/min >60 [facility] Comment on above: Non- GFR Calc Platelets bldOrdered By: Lyubov Burgos on 11-14-2022 Platelets (Bld) [#/Vol] 202 10*3/uL 150-450 [facility] Serum or plasma calcium gordy urement (mass/volume)Ordered By: Renard Burgos on 11-14-2022 Calcium [Mass/Vol] 8.2 mg/dL 8.5-10.1 [facility] Serum or plasma creatinine m easurement (mass/volume)Ordered By: Renard Burgos on 11-14-2022 Creatinine [Mass/Vol] 0.69 mg/dL 0.70-1.30 [facility] Comment on above: The validity of the calculated GFR & GFRAA in patients over 70 years has not been determined. Clinical correlation is essential. Serum or plasma urea nitroge n measurement (mass/volume)Ordered By: Renard Burgos on 11-14-2022 Urea nitrogen [Mass/Vol] 18 mg/dL 7-18 [facility] Thin prep Papanicolaou smear with manual screeningOrdered By: Renard Burgos on 11-14-2022 Thin prep Papanicolaou smear with manual screening 3 5-15 [facility] Absolute lymphocyte countOrd ered By: Renard Burgos on 11-07-2022 Lymphocytes Auto (Unsp spec) [#/Vol] 1.99 10*3/uL 0.83-4.51 [facility] Basophil percentageOrdered B y: Renard Burgos on 11-07-2022 Basophils/100 WBC (Bld) 0.8 % 0-1 [facility] Eosinophils/100 WBC (Bld) 0.5 % 0-5 [facility] Neutrophils (Bld) [#/Vol] 5.1 10*3/uL 2.0-7.7 [facility] Neutrophils/100 WBC (Bld) 64.0 % 47-70 [facility] WBC (Bld) [#/Vol] 8.0 10*3/uL 4.4-11.0 [facility] Blood erythrocytes count (nu mber/volume)Ordered By: Renard Burgos on 11-07-2022 RBC (Bld) [#/Vol] 4.45 10*6/uL 4.6-6.2 [facility] Blood hemoglobin measurement (mass/volume)Ordered By: Renard Burgos on 11-07-2022 Hemoglobin (Bld) [Mass/Vol] 13.7 g/dL 13.0-16.5 [facility] Blood lymphocytes/100 leukoc ytesOrdered By: Renard Burgos on 11-07-2022 Lymphocytes/100 WBC (Bld) 25.0 % 19-41 [facility] Blood monocytes/100 leukocyt esOrdered By: Renard Burgos on 11-07-2022 Monocytes/100 WBC (Bld) 9.4 % 0-10 [facility] Blood platelet mean volumeOr dered By: Renard Burgos on 11-07-2022 Platelet mean volume (Bld) [Entitic vol] 10.7 fL 6.2-12.0 [facility] Determination of erythrocyte mean corpuscular volume (MCV)Ordered By: Renard Burgos on 11-07-2022 MCV (RBC) [Entitic vol] 91.5 fL 80-94 [facility] Hematocrit Auto (Bld) [Volum e fraction]Ordered By: Renard Burgos on 11-07-2022 Hematocrit (Bld) [Volume fraction] 40.7 % 40-54 [facility] Laboratory - Hematology and Cell countsOrdered By: Renard Burgos on 11-07-2022 Erythrocyte distribution width (RBC) [Entitic vol] 42.4 fL 35.1-43.9 [facility] Erythrocyte distribution width (RBC) [Ratio] 12.8 % 11.6-14.6 [facility] Immature granulocytes/100 WBC (Bld) 0.300 % 0.0-0.9 [facility] Comment on above: IG% - Immature Granu locytes (promyelocytes, myelocytes and metamyelocytes) > 1% indicates that a LEFT SHIFT is Present. MCH (RBC) [Entitic mass] 30.8 pg 27.0-32.0 [facility] Nucleated RBC/100 WBC (Bld) [Ratio] 0 % 0-5 [facility] MCHC Auto (RBC) [Mass/Vol]Or dered By: Renard Burgos on 11-07-2022 MCHC (RBC) [Mass/Vol] 33.7 g/dL 32-36 [facility] Platelets bldOrdered By: Lyubov Burgos on 11-07-2022 Platelets (Bld) [#/Vol] 220 10*3/uL 150-450 [facility] Absolute lymphocyte countOrd ered By: Renard Burgos on 10-31-2022 Lymphocytes Auto (Unsp spec) [#/Vol] 1.97 10*3/uL 0.83-4.51 [facility] Basophil percentageOrdered B y: Renrad Burgos on 10-31-2022 Basophils/100 WBC (Bld) 0.5 % 0-1 [facility] Eosinophils/100 WBC (Bld) 0.6 % 0-5 [facility] Neutrophils (Bld) [#/Vol] 6.7 10*3/uL 2.0-7.7 [facility] Neutrophils/100 WBC (Bld) 69.9 % 47-70 [facility] WBC (Bld) [#/Vol] 9.6 10*3/uL 4.4-11.0 [facility] Blood erythrocytes count (nu mber/volume)Ordered By: Renard Burgos on 10-31-2022 RBC (Bld) [#/Vol] 4.47 10*6/uL 4.6-6.2 [facility] Blood hemoglobin measurement (mass/volume)Ordered By: Renard Burgos on 10-31-2022 Hemoglobin (Bld) [Mass/Vol] 13.5 g/dL 13.0-16.5 [facility] Blood lymphocytes/100 leukoc ytesOrdered By: Renard Burgos on 10-31-2022 Lymphocytes/100 WBC (Bld) 20.5 % 19-41 [facility] Blood monocytes/100 leukocyt esOrdered By: Reanrd Burgos on 10-31-2022 Monocytes/100 WBC (Bld) 7.9 % 0-10 [facility] Blood platelet mean volumeOr dered By: Renard Burgos on 10-31-2022 Platelet mean volume (Bld) [Entitic vol] 11.1 fL 6.2-12.0 [facility] Determination of erythrocyte mean corpuscular volume (MCV)Ordered By: Renard Burgos on 10-31-2022 MCV (RBC) [Entitic vol] 92.4 fL 80-94 [facility] Hematocrit Auto (Bld) [Volum e fraction]Ordered By: Renard Burgos on 10-31-2022 Hematocrit (Bld) [Volume fraction] 41.3 % 40-54 [facility] Laboratory - Hematology and Cell countsOrdered By: Renard Burgos on 10-31-2022 Erythrocyte distribution width (RBC) [Entitic vol] 42.9 fL 35.1-43.9 [facility] Erythrocyte distribution width (RBC) [Ratio] 12.7 % 11.6-14.6 [facility] Immature granulocytes/100 WBC (Bld) 0.600 % 0.0-0.9 [facility] Comment on above: IG% - Immature Granu locytes (promyelocytes, myelocytes and metamyelocytes) > 1% indicates that a LEFT SHIFT is Present. MCH (RBC) [Entitic mass] 30.2 pg 27.0-32.0 [facility] Nucleated RBC/100 WBC (Bld) [Ratio] 0 % 0-5 [facility] MCHC Auto (RBC) [Mass/Vol]Or dered By: Renard Burgos on 10-31-2022 MCHC (RBC) [Mass/Vol] 32.7 g/dL 32-36 [facility] Platelets bldOrdered By: Lyubov Burgos on 10-31-2022 Platelets (Bld) [#/Vol] 221 10*3/uL 150-450 [facility] Absolute lymphocyte countOrd ered By: Renard Burgos on 10-24-2022 Lymphocytes Auto (Unsp spec) [#/Vol] 1.96 10*3/uL 0.83-4.51 [facility] Basophil percentageOrdered B y: Renard Burgos on 10-24-2022 Basophils/100 WBC (Bld) 0.4 % 0-1 [facility] Eosinophils/100 WBC (Bld) 0.7 % 0-5 [facility] Neutrophils (Bld) [#/Vol] 4.5 10*3/uL 2.0-7.7 [facility] Neutrophils/100 WBC (Bld) 61.9 % 47-70 [facility] WBC (Bld) [#/Vol] 7.3 10*3/uL 4.4-11.0 [facility] Blood erythrocytes count (nu mber/volume)Ordered By: Renard Burgos on 10-24-2022 RBC (Bld) [#/Vol] 4.41 10*6/uL 4.6-6.2 [facility] Blood hemoglobin measurement (mass/volume)Ordered By: Renard Burgos on 10-24-2022 Hemoglobin (Bld) [Mass/Vol] 13.2 g/dL 13.0-16.5 [facility] Blood lymphocytes/100 leukoc ytesOrdered By: Renard Burgos on 10-24-2022 Lymphocytes/100 WBC (Bld) 27.0 % 19-41 [facility] Blood monocytes/100 leukocyt esOrdered By: Renard Burgos on 10-24-2022 Monocytes/100 WBC (Bld) 9.4 % 0-10 [facility] Blood platelet mean volumeOr dered By: Renard Burgos on 10-24-2022 Platelet mean volume (Bld) [Entitic vol] 10.9 fL 6.2-12.0 [facility] Determination of erythrocyte mean corpuscular volume (MCV)Ordered By: Renard Burgos on 10-24-2022 MCV (RBC) [Entitic vol] 92.1 fL 80-94 [facility] Hematocrit Auto (Bld) [Volum e fraction]Ordered By: Renard Burgos on 10-24-2022 Hematocrit (Bld) [Volume fraction] 40.6 % 40-54 [facility] Laboratory - Hematology and Cell countsOrdered By: Renard Burgos on 10-24-2022 Erythrocyte distribution width (RBC) [Entitic vol] 42.8 fL 35.1-43.9 [facility] Erythrocyte distribution width (RBC) [Ratio] 12.8 % 11.6-14.6 [facility] Immature granulocytes/100 WBC (Bld) 0.600 % 0.0-0.9 [facility] Comment on above: IG% - Immature Granu locytes (promyelocytes, myelocytes and metamyelocytes) > 1% indicates that a LEFT SHIFT is Present. MCH (RBC) [Entitic mass] 29.9 pg 27.0-32.0 [facility] Nucleated RBC/100 WBC (Bld) [Ratio] 0 % 0-5 [facility] MCHC Auto (RBC) [Mass/Vol]Or dered By: Renard Burgos on 10-24-2022 MCHC (RBC) [Mass/Vol] 32.5 g/dL 32-36 [facility] Platelets bldOrdered By: Lyubov Burgos on 10-24-2022 Platelets (Bld) [#/Vol] 213 10*3/uL 150-450 [facility] Absolute lymphocyte countOrd ered By: Renard Burgos on 10-17-2022 Lymphocytes Auto (Unsp spec) [#/Vol] 2.05 10*3/uL 0.83-4.51 [facility] Basophil percentageOrdered B y: Renard Burgos on 10-17-2022 Basophils/100 WBC (Bld) 0.4 % 0-1 [facility] Eosinophils/100 WBC (Bld) 0.5 % 0-5 [facility] Neutrophils (Bld) [#/Vol] 6.7 10*3/uL 2.0-7.7 [facility] Neutrophils/100 WBC (Bld) 70.9 % 47-70 [facility] WBC (Bld) [#/Vol] 9.4 10*3/uL 4.4-11.0 [facility] Blood erythrocytes count (nu mber/volume)Ordered By: Renard Burgos on 10-17-2022 RBC (Bld) [#/Vol] 4.33 10*6/uL 4.6-6.2 [facility] Blood hemoglobin measurement (mass/volume)Ordered By: Renard Burgos on 10-17-2022 Hemoglobin (Bld) [Mass/Vol] 13.3 g/dL 13.0-16.5 [facility] Blood lymphocytes/100 leukoc ytesOrdered By: Renard Burgos on 10-17-2022 Lymphocytes/100 WBC (Bld) 21.7 % 19-41 [facility] Blood monocytes/100 leukocyt esOrdered By: Renard Burgos on 10-17-2022 Monocytes/100 WBC (Bld) 6.1 % 0-10 [facility] Blood platelet mean volumeOr dered By: Renrad Burgos on 10-17-2022 Platelet mean volume (Bld) [Entitic vol] 10.9 fL 6.2-12.0 [facility] Determination of erythrocyte mean corpuscular volume (MCV)Ordered By: Renard Burgos on 10-17-2022 MCV (RBC) [Entitic vol] 93.8 fL 80-94 [facility] Hematocrit Auto (Bld) [Volum e fraction]Ordered By: Renard Burgos on 10-17-2022 Hematocrit (Bld) [Volume fraction] 40.6 % 40-54 [facility] Laboratory - Hematology and Cell countsOrdered By: Renard Burgos on 10-17-2022 Erythrocyte distribution width (RBC) [Entitic vol] 42.7 fL 35.1-43.9 [facility] Erythrocyte distribution width (RBC) [Ratio] 12.4 % 11.6-14.6 [facility] Immature granulocytes/100 WBC (Bld) 0.400 % 0.0-0.9 [facility] Comment on above: IG% - Immature Granu locytes (promyelocytes, myelocytes and metamyelocytes) > 1% indicates that a LEFT SHIFT is Present. MCH (RBC) [Entitic mass] 30.7 pg 27.0-32.0 [facility] Nucleated RBC/100 WBC (Bld) [Ratio] 0 % 0-5 [facility] MCHC Auto (RBC) [Mass/Vol]Or dered By: Renard Burgos on 10-17-2022 MCHC (RBC) [Mass/Vol] 32.8 g/dL 32-36 [facility] Platelets bldOrdered By: Pet shirley Burgos on 10-17-2022 Platelets (Bld) [#/Vol] 186 10*3/uL 150-450 [facility] Absolute lymphocyte countOrd ered By: Renard Burgos on 10-10-2022 Lymphocytes Auto (Unsp spec) [#/Vol] 2.21 10*3/uL 0.83-4.51 [facility] Basophil percentageOrdered B y: Renard Burgos on 10-10-2022 Basophils/100 WBC (Bld) 0.6 % 0-1 [facility] Eosinophils/100 WBC (Bld) 0.6 % 0-5 [facility] Neutrophils (Bld) [#/Vol] 4.7 10*3/uL 2.0-7.7 [facility] Neutrophils/100 WBC (Bld) 59.6 % 47-70 [facility] WBC (Bld) [#/Vol] 7.9 10*3/uL 4.4-11.0 [facility] Blood erythrocytes count (nu mber/volume)Ordered By: Renard Burgos on 10-10-2022 RBC (Bld) [#/Vol] 4.78 10*6/uL 4.6-6.2 [facility] Blood hemoglobin measurement (mass/volume)Ordered By: Renard Burgos on 10-10-2022 Hemoglobin (Bld) [Mass/Vol] 14.4 g/dL 13.0-16.5 [facility] Blood lymphocytes/100 leukoc ytesOrdered By: Renard Burgos on 10-10-2022 Lymphocytes/100 WBC (Bld) 28.0 % 19-41 [facility] Blood monocytes/100 leukocyt esOrdered By: Renard Burgos on 10-10-2022 Monocytes/100 WBC (Bld) 10.8 % 0-10 [facility] Blood platelet mean volumeOr dered By: Renard Burgos on 10-10-2022 Platelet mean volume (Bld) [Entitic vol] 10.7 fL 6.2-12.0 [facility] Determination of erythrocyte mean corpuscular volume (MCV)Ordered By: Renard Burgos on 10-10-2022 MCV (RBC) [Entitic vol] 94.8 fL 80-94 [facility] Hematocrit Auto (Bld) [Volum e fraction]Ordered By: Renard Burgos on 10-10-2022 Hematocrit (Bld) [Volume fraction] 45.3 % 40-54 [facility] Laboratory - Hematology and Cell countsOrdered By: Renard Burgos on 10-10-2022 Erythrocyte distribution width (RBC) [Entitic vol] 43.8 fL 35.1-43.9 [facility] Erythrocyte distribution width (RBC) [Ratio] 12.6 % 11.6-14.6 [facility] Immature granulocytes/100 WBC (Bld) 0.400 % 0.0-0.9 [facility] Comment on above: IG% - Immature Granu locytes (promyelocytes, myelocytes and metamyelocytes) > 1% indicates that a LEFT SHIFT is Present. MCH (RBC) [Entitic mass] 30.1 pg 27.0-32.0 [facility] Nucleated RBC/100 WBC (Bld) [Ratio] 0 % 0-5 [facility] MCHC Auto (RBC) [Mass/Vol]Or dered By: Renard Burgos on 10-10-2022 MCHC (RBC) [Mass/Vol] 31.8 g/dL 32-36 [facility] Platelets bldOrdered By: Lyubov Burgos on 10-10-2022 Platelets (Bld) [#/Vol] 198 10*3/uL 150-450 [facility] Absolute lymphocyte countOrd ered By: Renard Burgos on 10-03-2022 Lymphocytes Auto (Unsp spec) [#/Vol] 2.00 10*3/uL 0.83-4.51 [facility] Basophil percentageOrdered B y: Renard Burgos on 10-03-2022 Basophils/100 WBC (Bld) 0.6 % 0-1 [facility] Bilirubin [Mass/Vol] 0.30 mg/dL 0.20-1.00 [facility] Comment on above: For patients on eltr ombopag therapy, use of Dimension [place] TBIL is not recommended. Chloride [Moles/Vol] 109 mmol/L 98-107 [facility] Cholesterol [Mass/Vol] 129 mg/dL <200 [facility] Comment on above: <200 mg/dL Desirable 200-240 mg/dL Borderline >240 mg/dL High Risk Eosinophils/100 WBC (Bld) 0.8 % 0-5 [facility] Glucose [Mass/Vol] 82 mg/dL 74-106 [facility] Neutrophils (Bld) [#/Vol] 5.1 10*3/uL 2.0-7.7 [facility] Neutrophils/100 WBC (Bld) 63.2 % 47-70 [facility] Potassium [Moles/Vol] 3.9 mmol/L 3.5-5.1 [facility] Protein [Mass/Vol] 6.1 g/dL 6.4-8.2 [facility] Sodium [Moles/Vol] 140 mmol/L 136-145 [facility] Triglyceride [Mass/Vol] 209 mg/dL <199 [facility] Comment on above: The drugs N-Acetylcy steine and Metamizole may falsely depress this assay.Serum Triglycerides Reference Interval Normal <150 mg/dL Borderline high 150 - 199 mg/dL High 200 - 499 mg/dL Very High > or = 500 mg/dL WBC (Bld) [#/Vol] 8.0 10*3/uL 4.4-11.0 [facility] Blood erythrocytes count (nu mber/volume)Ordered By: Renard Burgos on 10-03-2022 RBC (Bld) [#/Vol] 4.58 10*6/uL 4.6-6.2 [facility] Blood hemoglobin measurement (mass/volume)Ordered By: Renard Burgos on 10-03-2022 Hemoglobin (Bld) [Mass/Vol] 13.9 g/dL 13.0-16.5 [facility] Blood lymphocytes/100 leukoc ytesOrdered By: Renard Burgos on 10-03-2022 Lymphocytes/100 WBC (Bld) 25.1 % 19-41 [facility] Blood monocytes/100 leukocyt esOrdered By: Renard Burgos on 10-03-2022 Monocytes/100 WBC (Bld) 10.0 % 0-10 [facility] Blood platelet mean volumeOr dered By: Renard Burgos on 10-03-2022 Platelet mean volume (Bld) [Entitic vol] 11.1 fL 6.2-12.0 [facility] Determination of erythrocyte mean corpuscular volume (MCV)Ordered By: Renard Burgos on 10-03-2022 MCV (RBC) [Entitic vol] 93.9 fL 80-94 [facility] Hematocrit Auto (Bld) [Volum e fraction]Ordered By: Renard Burgos on 10-03-2022 Hematocrit (Bld) [Volume fraction] 43.0 % 40-54 [facility] Laboratory - Chemistry and C hemistry - challengeOrdered By: Renard Burgos on 10-03-2022 ALP [Catalytic activity/Vol] 98 U/L 45-117 [facility] ALT [Catalytic activity/Vol] 19 U/L 16-61 [facility] CO2 [Moles/Vol] 31.0 mmol/L 21.0-32.0 [facility] Globulin (S) [Mass/Vol] 3.1 g/dL 2.2-4.2 [facility] Urea nitrogen/Creatinine [Mass ratio] 25.6 mg/mg 10-20 [facility] Laboratory - Hematology and Cell countsOrdered By: Renard Burgos on 10-03-2022 Erythrocyte distribution width (RBC) [Entitic vol] 43.8 fL 35.1-43.9 [facility] Erythrocyte distribution width (RBC) [Ratio] 12.7 % 11.6-14.6 [facility] Immature granulocytes/100 WBC (Bld) 0.300 % 0.0-0.9 [facility] Comment on above: IG% - Immature Granu locytes (promyelocytes, myelocytes and metamyelocytes) > 1% indicates that a LEFT SHIFT is Present. MCH (RBC) [Entitic mass] 30.3 pg 27.0-32.0 [facility] Nucleated RBC/100 WBC (Bld) [Ratio] 0 % 0-5 [facility] MCHC Auto (RBC) [Mass/Vol]Or dered By: Renard Burgos on 10-03-2022 MCHC (RBC) [Mass/Vol] 32.3 g/dL 32-36 [facility] No Panel InformationOrdered By: Renard Burgos on 10-03-2022 Estimated GFR (MDRD) Amer 165 mL/min >60 [facility] Comment on above: GFR Calc Estimated GFR (MDRD) Non-Af Amer 137 mL/min >60 [facility] Comment on above: Non- GFR Calc Platelets bldOrdered By: Lyubov Burgos on 10-03-2022 Platelets (Bld) [#/Vol] 204 10*3/uL 150-450 [facility] Serum or plasma albumin gordy urement (mass/volume)Ordered By: Renard Burgos on 10-03-2022 Albumin [Mass/Vol] 3.0 g/dL 3.2-5.0 [facility] Serum or plasma albumin/glob ulin mass ratioOrdered By: Renard Burgos on 10-03-2022 Albumin/Globulin [Mass ratio] 1.0 {ratio} 0.9-2.4 [facility] Serum or plasma calcium gordy urement (mass/volume)Ordered By: Renard Burgos on 10-03-2022 Calcium [Mass/Vol] 8.4 mg/dL 8.5-10.1 [facility] Serum or plasma cholesterol in HDL measurement (mass/volume)Ordered By: Renard Burgos on 10-03-2022 Cholesterol in HDL [Mass/Vol] 29 mg/dL >40 [facility] Comment on above: The drugs N-Acetylcy steine and Metamizole may falsely depress this assay. Reference Range HDL <40 mg/dL Low HDL Cholesterol HDL >or= 60 mg/dL High HDL Cholesterol Serum or plasma cholesterol in VLDL measurement (mass/volume)Ordered By: Renard Burgos on 10-03-2022 Cholesterol in VLDL [Mass/Vol] 42 mg/dL 5-40 [facility] Serum or plasma creatinine m easurement (mass/volume)Ordered By: Renard Burgos on 10-03-2022 Creatinine [Mass/Vol] 0.63 mg/dL 0.70-1.30 [facility] Comment on above: The validity of the calculated GFR & GFRAA in patients over 70 years has not been determined. Clinical correlation is essential. Serum or plasma low density lipoprotein (LDL) cholesterol measurement (mass/volume)Ordered By: Renard Burgos on 10-03-2022 Cholesterol in LDL [Mass/Vol] 58 mg/dL 0-130 [facility] Serum or plasma urea nitroge n measurement (mass/volume)Ordered By: Renard Burgos on 10-03-2022 Urea nitrogen [Mass/Vol] 16 mg/dL 7-18 [facility] Thin prep Papanicolaou smear with manual screeningOrdered By: Renard Burgos on 10-03-2022 Thin prep Papanicolaou smear with manual screening 13 U/L 15-37 [facility] Thin prep Papanicolaou smear with manual screening 0 5-15 [facility] Absolute lymphocyte countOrd ered By: Renard Burgos on 09-19-2022 Lymphocytes Auto (Unsp spec) [#/Vol] 1.59 10*3/uL 0.83-4.51 [facility] Basophil percentageOrdered B y: Renard Burgos on 09-19-2022 Basophils/100 WBC (Bld) 0.5 % 0-1 [facility] Eosinophils/100 WBC (Bld) 0.3 % 0-5 [facility] Neutrophils (Bld) [#/Vol] 7.4 10*3/uL 2.0-7.7 [facility] Neutrophils/100 WBC (Bld) 75.0 % 47-70 [facility] WBC (Bld) [#/Vol] 9.9 10*3/uL 4.4-11.0 [facility] Blood erythrocytes count (nu mber/volume)Ordered By: Renard Burgos on 09-19-2022 RBC (Bld) [#/Vol] 4.46 10*6/uL 4.6-6.2 [facility] Blood hemoglobin measurement (mass/volume)Ordered By: Renard Burgos on 09-19-2022 Hemoglobin (Bld) [Mass/Vol] 13.5 g/dL 13.0-16.5 [facility] Blood lymphocytes/100 leukoc ytesOrdered By: Renard Burgos on 09-19-2022 Lymphocytes/100 WBC (Bld) 16.1 % 19-41 [facility] Blood monocytes/100 leukocyt esOrdered By: Renard Burgos on 09-19-2022 Monocytes/100 WBC (Bld) 7.6 % 0-10 [facility] Blood platelet mean volumeOr dered By: Renard Burgos on 09-19-2022 Platelet mean volume (Bld) [Entitic vol] 10.8 fL 6.2-12.0 [facility] Determination of erythrocyte mean corpuscular volume (MCV)Ordered By: Renard Burgos on 09-19-2022 MCV (RBC) [Entitic vol] 92.2 fL 80-94 [facility] Hematocrit Auto (Bld) [Volum e fraction]Ordered By: Renard Burgos on 09-19-2022 Hematocrit (Bld) [Volume fraction] 41.1 % 40-54 [facility] Laboratory - Hematology and Cell countsOrdered By: Renard Burgos on 09-19-2022 Erythrocyte distribution width (RBC) [Entitic vol] 41.2 fL 35.1-43.9 [facility] Erythrocyte distribution width (RBC) [Ratio] 12.3 % 11.6-14.6 [facility] Immature granulocytes/100 WBC (Bld) 0.500 % 0.0-0.9 [facility] Comment on above: IG% - Immature Granu locytes (promyelocytes, myelocytes and metamyelocytes) > 1% indicates that a LEFT SHIFT is Present. MCH (RBC) [Entitic mass] 30.3 pg 27.0-32.0 [facility] Nucleated RBC/100 WBC (Bld) [Ratio] 0 % 0-5 [facility] MCHC Auto (RBC) [Mass/Vol]Or dered By: Renard Burgos on 09-19-2022 MCHC (RBC) [Mass/Vol] 32.8 g/dL 32-36 [facility] Platelets bldOrdered By: Lyubov Burgos on 09-19-2022 Platelets (Bld) [#/Vol] 245 10*3/uL 150-450 [facility] Absolute lymphocyte countOrd ered By: Renard Burgos on 09-12-2022 Lymphocytes Auto (Unsp spec) [#/Vol] 2.11 10*3/uL 0.83-4.51 [facility] Basophil percentageOrdered B y: Renard Burgos on 09-12-2022 Basophils/100 WBC (Bld) 0.5 % 0-1 [facility] Eosinophils/100 WBC (Bld) 0.7 % 0-5 [facility] Neutrophils (Bld) [#/Vol] 4.7 10*3/uL 2.0-7.7 [facility] Neutrophils/100 WBC (Bld) 63.6 % 47-70 [facility] WBC (Bld) [#/Vol] 7.3 10*3/uL 4.4-11.0 [facility] Blood erythrocytes count (nu mber/volume)Ordered By: Renard Burgos on 09-12-2022 RBC (Bld) [#/Vol] 4.40 10*6/uL 4.6-6.2 [facility] Blood hemoglobin measurement (mass/volume)Ordered By: Renard Burgos on 09-12-2022 Hemoglobin (Bld) [Mass/Vol] 13.5 g/dL 13.0-16.5 [facility] Blood lymphocytes/100 leukoc ytesOrdered By: Renard Burgos on 09-12-2022 Lymphocytes/100 WBC (Bld) 28.8 % 19-41 [facility] Blood monocytes/100 leukocyt esOrdered By: Renard Burgos on 09-12-2022 Monocytes/100 WBC (Bld) 6.1 % 0-10 [facility] Blood platelet mean volumeOr dered By: Renard Burgos on 09-12-2022 Platelet mean volume (Bld) [Entitic vol] 10.7 fL 6.2-12.0 [facility] Determination of erythrocyte mean corpuscular volume (MCV)Ordered By: Renard Burgos on 09-12-2022 MCV (RBC) [Entitic vol] 91.4 fL 80-94 [facility] Hematocrit Auto (Bld) [Volum e fraction]Ordered By: Renard Burgos on 09-12-2022 Hematocrit (Bld) [Volume fraction] 40.2 % 40-54 [facility] Laboratory - Hematology and Cell countsOrdered By: Renard Burgos on 09-12-2022 Erythrocyte distribution width (RBC) [Entitic vol] 41.3 fL 35.1-43.9 [facility] Erythrocyte distribution width (RBC) [Ratio] 12.5 % 11.6-14.6 [facility] Immature granulocytes/100 WBC (Bld) 0.300 % 0.0-0.9 [facility] Comment on above: IG% - Immature Granu locytes (promyelocytes, myelocytes and metamyelocytes) > 1% indicates that a LEFT SHIFT is Present. MCH (RBC) [Entitic mass] 30.7 pg 27.0-32.0 [facility] Nucleated RBC/100 WBC (Bld) [Ratio] 0 % 0-5 [facility] MCHC Auto (RBC) [Mass/Vol]Or dered By: Renard Burgos on 09-12-2022 MCHC (RBC) [Mass/Vol] 33.6 g/dL 32-36 [facility] Platelets bldOrdered By: Lyubov Burgos on 09-12-2022 Platelets (Bld) [#/Vol] 197 10*3/uL 150-450 [facility] Absolute lymphocyte countOrd ered By: Renard Burgos on 09-05-2022 Lymphocytes Auto (Unsp spec) [#/Vol] 1.94 10*3/uL 0.83-4.51 [facility] Basophil percentageOrdered B y: Renard Burgos on 09-05-2022 Basophils/100 WBC (Bld) 0.5 % 0-1 [facility] Cholesterol [Mass/Vol] 136 mg/dL <200 [facility] Comment on above: <200 mg/dL Desirable 200-240 mg/dL Borderline >240 mg/dL High Risk Eosinophils/100 WBC (Bld) 0.4 % 0-5 [facility] Neutrophils (Bld) [#/Vol] 5.4 10*3/uL 2.0-7.7 [facility] Neutrophils/100 WBC (Bld) 67.5 % 47-70 [facility] Triglyceride [Mass/Vol] 304 mg/dL <199 [facility] Comment on above: The drugs N-Acetylcy steine and Metamizole may falsely depress this assay.Serum Triglycerides Reference Interval Normal <150 mg/dL Borderline high 150 - 199 mg/dL High 200 - 499 mg/dL Very High > or = 500 mg/dL WBC (Bld) [#/Vol] 7.9 10*3/uL 4.4-11.0 [facility] Blood erythrocytes count (nu mber/volume)Ordered By: Renard Burgos on 09-05-2022 RBC (Bld) [#/Vol] 4.28 10*6/uL 4.6-6.2 [facility] Blood hemoglobin measurement (mass/volume)Ordered By: Renard Burgos on 09-05-2022 Hemoglobin (Bld) [Mass/Vol] 12.9 g/dL 13.0-16.5 [facility] Blood lymphocytes/100 leukoc ytesOrdered By: Renard Burgos on 09-05-2022 Lymphocytes/100 WBC (Bld) 24.5 % 19-41 [facility] Blood monocytes/100 leukocyt esOrdered By: Renard Burgos on 09-05-2022 Monocytes/100 WBC (Bld) 6.6 % 0-10 [facility] Blood platelet mean volumeOr dered By: Renard Burgso on 09-05-2022 Platelet mean volume (Bld) [Entitic vol] 10.7 fL 6.2-12.0 [facility] Determination of erythrocyte mean corpuscular volume (MCV)Ordered By: Renard Burgos on 09-05-2022 MCV (RBC) [Entitic vol] 91.4 fL 80-94 [facility] Hematocrit Auto (Bld) [Volum e fraction]Ordered By: Renard Burgos on 09-05-2022 Hematocrit (Bld) [Volume fraction] 39.1 % 40-54 [facility] Laboratory - Hematology and Cell countsOrdered By: Renard Burgos on 09-05-2022 Erythrocyte distribution width (RBC) [Entitic vol] 41.5 fL 35.1-43.9 [facility] Erythrocyte distribution width (RBC) [Ratio] 12.6 % 11.6-14.6 [facility] Immature granulocytes/100 WBC (Bld) 0.500 % 0.0-0.9 [facility] Comment on above: IG% - Immature Granu locytes (promyelocytes, myelocytes and metamyelocytes) > 1% indicates that a LEFT SHIFT is Present. MCH (RBC) [Entitic mass] 30.1 pg 27.0-32.0 [facility] Nucleated RBC/100 WBC (Bld) [Ratio] 0 % 0-5 [facility] MCHC Auto (RBC) [Mass/Vol]Or dered By: Renard Burgos on 09-05-2022 MCHC (RBC) [Mass/Vol] 33.0 g/dL 32-36 [facility] Platelets bldOrdered By: Lyubov Burgos on 09-05-2022 Platelets (Bld) [#/Vol] 200 10*3/uL 150-450 [facility] Serum or plasma cholesterol in HDL measurement (mass/volume)Ordered By: Renard Burgos on 09-05-2022 Cholesterol in HDL [Mass/Vol] 24 mg/dL >40 [facility] Comment on above: The drugs N-Acetylcy steine and Metamizole may falsely depress this assay. Reference Range HDL <40 mg/dL Low HDL Cholesterol HDL >or= 60 mg/dL High HDL Cholesterol Serum or plasma cholesterol in VLDL measurement (mass/volume)Ordered By: Renard Burgos on 09-05-2022 Cholesterol in VLDL [Mass/Vol] 61 mg/dL 5-40 [facility] Serum or plasma low density lipoprotein (LDL) cholesterol measurement (mass/volume)Ordered By: Renard Burgos on 09-05-2022 Cholesterol in LDL [Mass/Vol] 51 mg/dL 0-130 [facility] Absolute lymphocyte countOrd ered By: Renard Burgos on 08-29-2022 Lymphocytes Auto (Unsp spec) [#/Vol] 1.91 10*3/uL 0.83-4.51 [facility] Basophil percentageOrdered B y: Renard Burgos on 08-29-2022 Basophils/100 WBC (Bld) 0.4 % 0-1 [facility] Eosinophils/100 WBC (Bld) 0.4 % 0-5 [facility] Neutrophils (Bld) [#/Vol] 4.8 10*3/uL 2.0-7.7 [facility] Neutrophils/100 WBC (Bld) 66.0 % 47-70 [facility] WBC (Bld) [#/Vol] 7.3 10*3/uL 4.4-11.0 [facility] Blood erythrocytes count (nu mber/volume)Ordered By: Renard Burgos on 08-29-2022 RBC (Bld) [#/Vol] 4.43 10*6/uL 4.6-6.2 [facility] Blood hemoglobin measurement (mass/volume)Ordered By: Renard Burgos on 08-29-2022 Hemoglobin (Bld) [Mass/Vol] 13.6 g/dL 13.0-16.5 [facility] Blood lymphocytes/100 leukoc ytesOrdered By: Renard Burgos on 08-29-2022 Lymphocytes/100 WBC (Bld) 26.2 % 19-41 [facility] Blood monocytes/100 leukocyt esOrdered By: Renard Burgos on 08-29-2022 Monocytes/100 WBC (Bld) 6.6 % 0-10 [facility] Blood platelet mean volumeOr dered By: Renard Burgos on 08-29-2022 Platelet mean volume (Bld) [Entitic vol] 11.0 fL 6.2-12.0 [facility] Determination of erythrocyte mean corpuscular volume (MCV)Ordered By: Renard Burgos on 08-29-2022 MCV (RBC) [Entitic vol] 92.1 fL 80-94 [facility] Hematocrit Auto (Bld) [Volum e fraction]Ordered By: Renard Burgos on 08-29-2022 Hematocrit (Bld) [Volume fraction] 40.8 % 40-54 [facility] Laboratory - Hematology and Cell countsOrdered By: Renard Burgos on 08-29-2022 Erythrocyte distribution width (RBC) [Entitic vol] 42.0 fL 35.1-43.9 [facility] Erythrocyte distribution width (RBC) [Ratio] 12.4 % 11.6-14.6 [facility] Immature granulocytes/100 WBC (Bld) 0.400 % 0.0-0.9 [facility] Comment on above: IG% - Immature Granu locytes (promyelocytes, myelocytes and metamyelocytes) > 1% indicates that a LEFT SHIFT is Present. MCH (RBC) [Entitic mass] 30.7 pg 27.0-32.0 [facility] Nucleated RBC/100 WBC (Bld) [Ratio] 0 % 0-5 [facility] MCHC Auto (RBC) [Mass/Vol]Or dered By: Renard Burgos on 08-29-2022 MCHC (RBC) [Mass/Vol] 33.3 g/dL 32-36 [facility] Platelets bldOrdered By: Lyubov Burgos on 08-29-2022 Platelets (Bld) [#/Vol] 195 10*3/uL 150-450 [facility] Absolute lymphocyte countOrd ered By: Renard Burgos on 08-22-2022 Lymphocytes Auto (Unsp spec) [#/Vol] 1.86 10*3/uL 0.83-4.51 [facility] Basophil percentageOrdered B y: Renard Burgos on 08-22-2022 Basophils/100 WBC (Bld) 0.4 % 0-1 [facility] Eosinophils/100 WBC (Bld) 0.4 % 0-5 [facility] Neutrophils (Bld) [#/Vol] 6.5 10*3/uL 2.0-7.7 [facility] Neutrophils/100 WBC (Bld) 70.5 % 47-70 [facility] WBC (Bld) [#/Vol] 9.3 10*3/uL 4.4-11.0 [facility] Blood erythrocytes count (nu mber/volume)Ordered By: Renard Burgos on 08-22-2022 RBC (Bld) [#/Vol] 4.55 10*6/uL 4.6-6.2 [facility] Blood hemoglobin measurement (mass/volume)Ordered By: Renard Burgos on 08-22-2022 Hemoglobin (Bld) [Mass/Vol] 14.1 g/dL 13.0-16.5 [facility] Blood lymphocytes/100 leukoc ytesOrdered By: Renard Burgos on 08-22-2022 Lymphocytes/100 WBC (Bld) 20.1 % 19-41 [facility] Blood monocytes/100 leukocyt esOrdered By: Renard Burgos on 08-22-2022 Monocytes/100 WBC (Bld) 8.3 % 0-10 [facility] Blood platelet mean volumeOr dered By: Renard Burgos on 08-22-2022 Platelet mean volume (Bld) [Entitic vol] 10.8 fL 6.2-12.0 [facility] Determination of erythrocyte mean corpuscular volume (MCV)Ordered By: Renard Burgos on 08-22-2022 MCV (RBC) [Entitic vol] 91.9 fL 80-94 [facility] Hematocrit Auto (Bld) [Volum e fraction]Ordered By: Renard Burgos on 08-22-2022 Hematocrit (Bld) [Volume fraction] 41.8 % 40-54 [facility] Laboratory - Hematology and Cell countsOrdered By: Renard Burgos on 08-22-2022 Erythrocyte distribution width (RBC) [Entitic vol] 42.5 fL 35.1-43.9 [facility] Erythrocyte distribution width (RBC) [Ratio] 12.6 % 11.6-14.6 [facility] Immature granulocytes/100 WBC (Bld) 0.300 % 0.0-0.9 [facility] Comment on above: IG% - Immature Granu locytes (promyelocytes, myelocytes and metamyelocytes) > 1% indicates that a LEFT SHIFT is Present. MCH (RBC) [Entitic mass] 31.0 pg 27.0-32.0 [facility] Nucleated RBC/100 WBC (Bld) [Ratio] 0 % 0-5 [facility] MCHC Auto (RBC) [Mass/Vol]Or dered By: Renard Burgos on 08-22-2022 MCHC (RBC) [Mass/Vol] 33.7 g/dL 32-36 [facility] Platelets bldOrdered By: Lyubov Burgos on 08-22-2022 Platelets (Bld) [#/Vol] 197 10*3/uL 150-450 [facility] Absolute lymphocyte countOrd ered By: Renard Burgos on 08-15-2022 Lymphocytes Auto (Unsp spec) [#/Vol] 1.88 10*3/uL 0.83-4.51 [facility] Basophil percentageOrdered B y: Renard Burgos on 08-15-2022 Basophils/100 WBC (Bld) 0.5 % 0-1 [facility] Eosinophils/100 WBC (Bld) 0.5 % 0-5 [facility] Neutrophils (Bld) [#/Vol] 5.1 10*3/uL 2.0-7.7 [facility] Neutrophils/100 WBC (Bld) 65.0 % 47-70 [facility] WBC (Bld) [#/Vol] 7.9 10*3/uL 4.4-11.0 [facility] Blood erythrocytes count (nu mber/volume)Ordered By: Renard Burgos on 08-15-2022 RBC (Bld) [#/Vol] 4.48 10*6/uL 4.6-6.2 [facility] Blood hemoglobin measurement (mass/volume)Ordered By: Renard Burgos on 08-15-2022 Hemoglobin (Bld) [Mass/Vol] 13.7 g/dL 13.0-16.5 [facility] Blood lymphocytes/100 leukoc ytesOrdered By: Renard Burgos on 08-15-2022 Lymphocytes/100 WBC (Bld) 23.9 % 19-41 [facility] Blood monocytes/100 leukocyt esOrdered By: Renard Burgos on 08-15-2022 Monocytes/100 WBC (Bld) 9.8 % 0-10 [facility] Blood platelet mean volumeOr dered By: Renard Burgos on 08-15-2022 Platelet mean volume (Bld) [Entitic vol] 10.7 fL 6.2-12.0 [facility] Determination of erythrocyte mean corpuscular volume (MCV)Ordered By: Renard Burgos on 08-15-2022 MCV (RBC) [Entitic vol] 91.1 fL 80-94 [facility] Hematocrit Auto (Bld) [Volum e fraction]Ordered By: Renard Burgos on 08-15-2022 Hematocrit (Bld) [Volume fraction] 40.8 % 40-54 [facility] Laboratory - Hematology and Cell countsOrdered By: Renrad Burgos on 08-15-2022 Erythrocyte distribution width (RBC) [Entitic vol] 41.0 fL 35.1-43.9 [facility] Erythrocyte distribution width (RBC) [Ratio] 12.4 % 11.6-14.6 [facility] Immature granulocytes/100 WBC (Bld) 0.300 % 0.0-0.9 [facility] Comment on above: IG% - Immature Granu locytes (promyelocytes, myelocytes and metamyelocytes) > 1% indicates that a LEFT SHIFT is Present. MCH (RBC) [Entitic mass] 30.6 pg 27.0-32.0 [facility] Nucleated RBC/100 WBC (Bld) [Ratio] 0 % 0-5 [facility] MCHC Auto (RBC) [Mass/Vol]Or dered By: Renard Burgos on 08-15-2022 MCHC (RBC) [Mass/Vol] 33.6 g/dL 32-36 [facility] Platelets bldOrdered By: [facility] on 08-[facility]22 Platelets (Bld) [#/Vol] 212 10*3/uL 150-450 [facility] Absolute lymphocyte countOrd ered By: Renard Burgos on 08-08-2022 Lymphocytes Auto (Unsp spec) [#/Vol] 1.96 10*3/uL 0.83-4.51 [facility] Basophil percentageOrdered B y: Renard Burgos on 08-08-2022 Basophils/100 WBC (Bld) 0.5 % 0-1 [facility] Eosinophils/100 WBC (Bld) 0.5 % 0-5 [facility] Neutrophils (Bld) [#/Vol] 4.7 10*3/uL 2.0-7.7 [facility] Neutrophils/100 WBC (Bld) 64.1 % 47-70 [facility] WBC (Bld) [#/Vol] 7.4 10*3/uL 4.4-11.0 [facility] Blood erythrocytes count (nu mber/volume)Ordered By: Renard Burgos on 08-08-2022 RBC (Bld) [#/Vol] 4.44 10*6/uL 4.6-6.2 [facility] Blood hemoglobin measurement (mass/volume)Ordered By: Renard Burgos on 08-08-2022 Hemoglobin (Bld) [Mass/Vol] 13.6 g/dL 13.0-16.5 [facility] Blood lymphocytes/100 leukoc ytesOrdered By: Renard Burgos on 08-08-2022 Lymphocytes/100 WBC (Bld) 26.5 % 19-41 [facility] Blood monocytes/100 leukocyt esOrdered By: Renard Burgos on 08-08-2022 Monocytes/100 WBC (Bld) 8.1 % 0-10 [facility] Blood platelet mean volumeOr dered By: Renard Burgos on 08-08-2022 Platelet mean volume (Bld) [Entitic vol] 10.8 fL 6.2-12.0 [facility] Determination of erythrocyte mean corpuscular volume (MCV)Ordered By: Renard Burgos on 08-08-2022 MCV (RBC) [Entitic vol] 91.7 fL 80-94 [facility] Hematocrit Auto (Bld) [Volum e fraction]Ordered By: Renard Burgos on 08-08-2022 Hematocrit (Bld) [Volume fraction] 40.7 % 40-54 [facility] Laboratory - Hematology and Cell countsOrdered By: Renard Burgos on 08-08-2022 Erythrocyte distribution width (RBC) [Entitic vol] 42.7 fL 35.1-43.9 [facility] Erythrocyte distribution width (RBC) [Ratio] 12.6 % 11.6-14.6 [facility] Immature granulocytes/100 WBC (Bld) 0.300 % 0.0-0.9 [facility] Comment on above: IG% - Immature Granu locytes (promyelocytes, myelocytes and metamyelocytes) > 1% indicates that a LEFT SHIFT is Present. MCH (RBC) [Entitic mass] 30.6 pg 27.0-32.0 [facility] Nucleated RBC/100 WBC (Bld) [Ratio] 0 % 0-5 [facility] MCHC Auto (RBC) [Mass/Vol]Or dered By: Renard Burgos on 08-08-2022 MCHC (RBC) [Mass/Vol] 33.4 g/dL 32-36 [facility] Platelets bldOrdered By: Lyubov Burgos on 08-08-2022 Platelets (Bld) [#/Vol] 187 10*3/uL 150-450 [facility] Absolute lymphocyte countOrd ered By: Renard Burgos on 08-01-2022 Lymphocytes Auto (Unsp spec) [#/Vol] 2.09 10*3/uL 0.83-4.51 [facility] Basophil percentageOrdered B y: Renard Burgos on 08-01-2022 Basophils/100 WBC (Bld) 0.4 % 0-1 [facility] Eosinophils/100 WBC (Bld) 0.4 % 0-5 [facility] Neutrophils (Bld) [#/Vol] 6.6 10*3/uL 2.0-7.7 [facility] Neutrophils/100 WBC (Bld) 69.1 % 47-70 [facility] WBC (Bld) [#/Vol] 9.5 10*3/uL 4.4-11.0 [facility] Blood erythrocytes count (nu mber/volume)Ordered By: Renard Burgos on 08-01-2022 RBC (Bld) [#/Vol] 4.48 10*6/uL 4.6-6.2 [facility] Blood hemoglobin measurement (mass/volume)Ordered By: Renard Burgos on 08-01-2022 Hemoglobin (Bld) [Mass/Vol] 13.9 g/dL 13.0-16.5 [facility] Blood lymphocytes/100 leukoc ytesOrdered By: Renard Burgos on 08-01-2022 Lymphocytes/100 WBC (Bld) 21.9 % 19-41 [facility] Blood monocytes/100 leukocyt esOrdered By: Renard Burgos on 08-01-2022 Monocytes/100 WBC (Bld) 7.9 % 0-10 [facility] Blood platelet mean volumeOr dered By: Renard Burgos on 08-01-2022 Platelet mean volume (Bld) [Entitic vol] 11.0 fL 6.2-12.0 [facility] Determination of erythrocyte mean corpuscular volume (MCV)Ordered By: Renard Burgos on 08-01-2022 MCV (RBC) [Entitic vol] 91.5 fL 80-94 [facility] Hematocrit Auto (Bld) [Volum e fraction]Ordered By: Renard Burgos on 08-01-2022 Hematocrit (Bld) [Volume fraction] 41.0 % 40-54 [facility] Laboratory - Hematology and Cell countsOrdered By: Renard Burgos on 08-01-2022 Erythrocyte distribution width (RBC) [Entitic vol] 41.6 fL 35.1-43.9 [facility] Erythrocyte distribution width (RBC) [Ratio] 12.5 % 11.6-14.6 [facility] Immature granulocytes/100 WBC (Bld) 0.300 % 0.0-0.9 [facility] Comment on above: IG% - Immature Granu locytes (promyelocytes, myelocytes and metamyelocytes) > 1% indicates that a LEFT SHIFT is Present. MCH (RBC) [Entitic mass] 31.0 pg 27.0-32.0 [facility] Nucleated RBC/100 WBC (Bld) [Ratio] 0 % 0-5 [facility] MCHC Auto (RBC) [Mass/Vol]Or dered By: Renard Burgos on 08-01-2022 MCHC (RBC) [Mass/Vol] 33.9 g/dL 32-36 [facility] Platelets bldOrdered By: Pet shirley Burgos on 08-01-2022 Platelets (Bld) [#/Vol] 208 10*3/uL 150-450 [facility] Absolute lymphocyte countOrd ered By: Renard Burgos on 07-25-2022 Lymphocytes Auto (Unsp spec) [#/Vol] 2.16 10*3/uL 0.83-4.51 [facility] Basophil percentageOrdered B y: Renard Burgos on 07-25-2022 Basophils/100 WBC (Bld) 0.6 % 0-1 [facility] Eosinophils/100 WBC (Bld) 0.6 % 0-5 [facility] Neutrophils (Bld) [#/Vol] 5.4 10*3/uL 2.0-7.7 [facility] Neutrophils/100 WBC (Bld) 64.5 % 47-70 [facility] WBC (Bld) [#/Vol] 8.4 10*3/uL 4.4-11.0 [facility] Blood erythrocytes count (nu mber/volume)Ordered By: Renard Burgos on 07-25-2022 RBC (Bld) [#/Vol] 4.45 10*6/uL 4.6-6.2 [facility] Blood hemoglobin measurement (mass/volume)Ordered By: Renard Burgos on 07-25-2022 Hemoglobin (Bld) [Mass/Vol] 13.4 g/dL 13.0-16.5 [facility] Blood lymphocytes/100 leukoc ytesOrdered By: Renard Burgos on 07-25-2022 Lymphocytes/100 WBC (Bld) 25.7 % 19-41 [facility] Blood monocytes/100 leukocyt esOrdered By: Renard Burgos on 07-25-2022 Monocytes/100 WBC (Bld) 8.4 % 0-10 [facility] Blood platelet mean volumeOr dered By: Renard Burgos on 07-25-2022 Platelet mean volume (Bld) [Entitic vol] 11.0 fL 6.2-12.0 [facility] Determination of erythrocyte mean corpuscular volume (MCV)Ordered By: Renard Burgos on 07-25-2022 MCV (RBC) [Entitic vol] 92.8 fL 80-94 [facility] Hematocrit Auto (Bld) [Volum e fraction]Ordered By: Renard Burgos on 07-25-2022 Hematocrit (Bld) [Volume fraction] 41.3 % 40-54 [facility] Laboratory - Hematology and Cell countsOrdered By: Renard Burgos on 07-25-2022 Erythrocyte distribution width (RBC) [Entitic vol] 42.5 fL 35.1-43.9 [facility] Erythrocyte distribution width (RBC) [Ratio] 12.5 % 11.6-14.6 [facility] Immature granulocytes/100 WBC (Bld) 0.200 % 0.0-0.9 [facility] Comment on above: IG% - Immature Granu locytes (promyelocytes, myelocytes and metamyelocytes) > 1% indicates that a LEFT SHIFT is Present. MCH (RBC) [Entitic mass] 30.1 pg 27.0-32.0 [facility] Nucleated RBC/100 WBC (Bld) [Ratio] 0 % 0-5 [facility] MCHC Auto (RBC) [Mass/Vol]Or dered By: Renard Burgos on 07-25-2022 MCHC (RBC) [Mass/Vol] 32.4 g/dL 32-36 [facility] Platelets bldOrdered By: Lyubov Burgos on 07-25-2022 Platelets (Bld) [#/Vol] 200 10*3/uL 150-450 [facility] No Panel InformationOrdered By: Renard Burgos on 07-19-2022 Vitamin D 25-Hydroxy 34.2 ng/mL [facility] Comment on above: Vitamin D 25(OH) Sta tus Range Deficiency <20 ng/mL (50nmol/L) Insufficiency 20 - 30 ng/mL (50 - 75 nmol/L) Sufficiency 30 - 100 ng/mL (75 - 250 nmol/L) Toxicity >100 ng/mL (>250 nmol/L) Absolute lymphocyte countOrd ered By: Renard Burgos on 07-18-2022 Lymphocytes Auto (Unsp spec) [#/Vol] 2.48 10*3/uL 0.83-4.51 [facility] Basophil percentageOrdered B y: Renard Burgos on 07-18-2022 Basophils/100 WBC (Bld) 0.5 % 0-1 [facility] Eosinophils/100 WBC (Bld) 0.6 % 0-5 [facility] Neutrophils (Bld) [#/Vol] 5.9 10*3/uL 2.0-7.7 [facility] Neutrophils/100 WBC (Bld) 61.6 % 47-70 [facility] WBC (Bld) [#/Vol] 9.6 10*3/uL 4.4-11.0 [facility] Blood erythrocytes count (nu mber/volume)Ordered By: Renard Burgos on 07-18-2022 RBC (Bld) [#/Vol] 4.56 10*6/uL 4.6-6.2 [facility] Blood hemoglobin measurement (mass/volume)Ordered By: Renard Burgos on 07-18-2022 Hemoglobin (Bld) [Mass/Vol] 13.9 g/dL 13.0-16.5 [facility] Blood lymphocytes/100 leukoc ytesOrdered By: Renard Burgos on 07-18-2022 Lymphocytes/100 WBC (Bld) 25.9 % 19-41 [facility] Blood monocytes/100 leukocyt esOrdered By: Renard Burgos on 07-18-2022 Monocytes/100 WBC (Bld) 11.0 % 0-10 [facility] Blood platelet mean volumeOr dered By: Renard Burgos on 07-18-2022 Platelet mean volume (Bld) [Entitic vol] 11.3 fL 6.2-12.0 [facility] Determination of erythrocyte mean corpuscular volume (MCV)Ordered By: Renard Burgos on 07-18-2022 MCV (RBC) [Entitic vol] 93.9 fL 80-94 [facility] Hematocrit Auto (Bld) [Volum e fraction]Ordered By: Renard Burgos on 07-18-2022 Hematocrit (Bld) [Volume fraction] 42.8 % 40-54 [facility] Laboratory - Hematology and Cell countsOrdered By: Renard Burgos on 07-18-2022 Erythrocyte distribution width (RBC) [Entitic vol] 44.0 fL 35.1-43.9 [facility] Erythrocyte distribution width (RBC) [Ratio] 12.8 % 11.6-14.6 [facility] Immature granulocytes/100 WBC (Bld) 0.400 % 0.0-0.9 [facility] Comment on above: IG% - Immature Granu locytes (promyelocytes, myelocytes and metamyelocytes) > 1% indicates that a LEFT SHIFT is Present. MCH (RBC) [Entitic mass] 30.5 pg 27.0-32.0 [facility] Nucleated RBC/100 WBC (Bld) [Ratio] 0 % 0-5 [facility] MCHC Auto (RBC) [Mass/Vol]Or dered By: Renard Burgos on 07-18-2022 MCHC (RBC) [Mass/Vol] 32.5 g/dL 32-36 [facility] Platelets bldOrdered By: Lyuobv Burgos on 07-18-2022 Platelets (Bld) [#/Vol] 207 10*3/uL 150-450 [facility] Absolute lymphocyte countOrd ered By: Renard Burgos on 07-11-2022 Lymphocytes Auto (Unsp spec) [#/Vol] 2.37 10*3/uL 0.83-4.51 [facility] Basophil percentageOrdered B y: Renard Burgos on 07-11-2022 Basophils/100 WBC (Bld) 0.6 % 0-1 [facility] Eosinophils/100 WBC (Bld) 0.5 % 0-5 [facility] Neutrophils (Bld) [#/Vol] 5.3 10*3/uL 2.0-7.7 [facility] Neutrophils/100 WBC (Bld) 61.8 % 47-70 [facility] WBC (Bld) [#/Vol] 8.5 10*3/uL 4.4-11.0 [facility] Blood erythrocytes count (nu mber/volume)Ordered By: Renard Burgos on 07-11-2022 RBC (Bld) [#/Vol] 4.83 10*6/uL 4.6-6.2 [facility] Blood hemoglobin measurement (mass/volume)Ordered By: Renard Burgos on 07-11-2022 Hemoglobin (Bld) [Mass/Vol] 14.7 g/dL 13.0-16.5 [facility] Blood lymphocytes/100 leukoc ytesOrdered By: Renard Burgos on 07-11-2022 Lymphocytes/100 WBC (Bld) 27.8 % 19-41 [facility] Blood monocytes/100 leukocyt esOrdered By: Renard Burgos on 07-11-2022 Monocytes/100 WBC (Bld) 8.8 % 0-10 [facility] Blood platelet mean volumeOr dered By: Renard Burgos on 07-11-2022 Platelet mean volume (Bld) [Entitic vol] 10.6 fL 6.2-12.0 [facility] Determination of erythrocyte mean corpuscular volume (MCV)Ordered By: Renard Burgos on 07-11-2022 MCV (RBC) [Entitic vol] 90.7 fL 80-94 [facility] Hematocrit Auto (Bld) [Volum e fraction]Ordered By: Renard Burgos on 07-11-2022 Hematocrit (Bld) [Volume fraction] 43.8 % 40-54 [facility] Laboratory - Hematology and Cell countsOrdered By: Renard Burgos on 07-11-2022 Erythrocyte distribution width (RBC) [Entitic vol] 41.2 fL 35.1-43.9 [facility] Erythrocyte distribution width (RBC) [Ratio] 12.7 % 11.6-14.6 [facility] Immature granulocytes/100 WBC (Bld) 0.500 % 0.0-0.9 [facility] Comment on above: IG% - Immature Granu locytes (promyelocytes, myelocytes and metamyelocytes) > 1% indicates that a LEFT SHIFT is Present. MCH (RBC) [Entitic mass] 30.4 pg 27.0-32.0 [facility] Nucleated RBC/100 WBC (Bld) [Ratio] 0 % 0-5 [facility] MCHC Auto (RBC) [Mass/Vol]Or dered By: Renard Burgos on 07-11-2022 MCHC (RBC) [Mass/Vol] 33.6 g/dL 32-36 [facility] Platelets bldOrdered By: [facility] shirley Burgos on 07-11-2022 Platelets (Bld) [#/Vol] 207 10*3/uL 150-450 [facility] Absolute lymphocyte countOrd ered By: Renard Burgos on 07-04-2022 Lymphocytes Auto (Unsp spec) [#/Vol] 1.87 10*3/uL 0.83-4.51 [facility] Basophil percentageOrdered B y: Renard Burgos on 07-04-2022 Basophils/100 WBC (Bld) 0.4 % 0-1 [facility] Eosinophils/100 WBC (Bld) 0.5 % 0-5 [facility] Neutrophils (Bld) [#/Vol] 7.5 10*3/uL 2.0-7.7 [facility] Neutrophils/100 WBC (Bld) 72.8 % 47-70 [facility] WBC (Bld) [#/Vol] 10.3 10*3/uL 4.4-11.0 [facility] Blood erythrocytes count (nu mber/volume)Ordered By: Renard Burgos on 07-04-2022 RBC (Bld) [#/Vol] 4.45 10*6/uL 4.6-6.2 [facility] Blood hemoglobin measurement (mass/volume)Ordered By: Renard Burgos on 07-04-2022 Hemoglobin (Bld) [Mass/Vol] 13.5 g/dL 13.0-16.5 [facility] Blood lymphocytes/100 leukoc ytesOrdered By: Renard Burgos on 07-04-2022 Lymphocytes/100 WBC (Bld) 18.1 % 19-41 [facility] Blood monocytes/100 leukocyt esOrdered By: Renard Burgos on 07-04-2022 Monocytes/100 WBC (Bld) 7.7 % 0-10 [facility] Blood platelet mean volumeOr dered By: Renard Burgos on 07-04-2022 Platelet mean volume (Bld) [Entitic vol] 11.3 fL 6.2-12.0 [facility] Determination of erythrocyte mean corpuscular volume (MCV)Ordered By: Renard Burgos on 07-04-2022 MCV (RBC) [Entitic vol] 93.0 fL 80-94 [facility] Hematocrit Auto (Bld) [Volum e fraction]Ordered By: Renard Burgos on 07-04-2022 Hematocrit (Bld) [Volume fraction] 41.4 % 40-54 [facility] Laboratory - Hematology and Cell countsOrdered By: Renard Burgos on 07-04-2022 Erythrocyte distribution width (RBC) [Entitic vol] 43.0 fL 35.1-43.9 [facility] Erythrocyte distribution width (RBC) [Ratio] 12.5 % 11.6-14.6 [facility] Immature granulocytes/100 WBC (Bld) 0.500 % 0.0-0.9 [facility] Comment on above: IG% - Immature Granu locytes (promyelocytes, myelocytes and metamyelocytes) > 1% indicates that a LEFT SHIFT is Present. MCH (RBC) [Entitic mass] 30.3 pg 27.0-32.0 [facility] Nucleated RBC/100 WBC (Bld) [Ratio] 0 % 0-5 [facility] MCHC Auto (RBC) [Mass/Vol]Or dered By: Renard Burgos on 07-04-2022 MCHC (RBC) [Mass/Vol] 32.6 g/dL 32-36 [facility] Platelets bldOrdered By: Lyubov Burgos on 07-04-2022 Platelets (Bld) [#/Vol] 211 10*3/uL 150-450 [facility] Absolute lymphocyte countOrd ered By: Renard Burgos on 06-27-2022 Lymphocytes Auto (Unsp spec) [#/Vol] 1.83 10*3/uL 0.83-4.51 [facility] Basophil percentageOrdered B y: Renard Burgos on 06-27-2022 Basophils/100 WBC (Bld) 0.4 % 0-1 [facility] Eosinophils/100 WBC (Bld) 0.5 % 0-5 [facility] Neutrophils (Bld) [#/Vol] 5.0 10*3/uL 2.0-7.7 [facility] Neutrophils/100 WBC (Bld) 67.6 % 47-70 [facility] WBC (Bld) [#/Vol] 7.4 10*3/uL 4.4-11.0 [facility] Blood erythrocytes count (nu mber/volume)Ordered By: Renard Burgos on 06-27-2022 RBC (Bld) [#/Vol] 4.52 10*6/uL 4.6-6.2 [facility] Blood hemoglobin measurement (mass/volume)Ordered By: Renard Burgos on 06-27-2022 Hemoglobin (Bld) [Mass/Vol] 13.9 g/dL 13.0-16.5 [facility] Blood lymphocytes/100 leukoc ytesOrdered By: Renard Burgos on 06-27-2022 Lymphocytes/100 WBC (Bld) 24.7 % 19-41 [facility] Blood monocytes/100 leukocyt esOrdered By: Renard Burgos on 06-27-2022 Monocytes/100 WBC (Bld) 6.4 % 0-10 [facility] Blood platelet mean volumeOr dered By: Renard Burgos on 06-27-2022 Platelet mean volume (Bld) [Entitic vol] 10.7 fL 6.2-12.0 [facility] Determination of erythrocyte mean corpuscular volume (MCV)Ordered By: Renard Burgos on 06-27-2022 MCV (RBC) [Entitic vol] 91.2 fL 80-94 [facility] Hematocrit Auto (Bld) [Volum e fraction]Ordered By: Renard Burgos on 06-27-2022 Hematocrit (Bld) [Volume fraction] 41.2 % 40-54 [facility] Laboratory - Hematology and Cell countsOrdered By: Renard Burgos on 06-27-2022 Erythrocyte distribution width (RBC) [Entitic vol] 41.9 fL 35.1-43.9 [facility] Erythrocyte distribution width (RBC) [Ratio] 12.7 % 11.6-14.6 [facility] Immature granulocytes/100 WBC (Bld) 0.400 % 0.0-0.9 [facility] Comment on above: IG% - Immature Granu locytes (promyelocytes, myelocytes and metamyelocytes) > 1% indicates that a LEFT SHIFT is Present. MCH (RBC) [Entitic mass] 30.8 pg 27.0-32.0 [facility] Nucleated RBC/100 WBC (Bld) [Ratio] 0 % 0-5 [facility] MCHC Auto (RBC) [Mass/Vol]Or dered By: Renard Burgos on 06-27-2022 MCHC (RBC) [Mass/Vol] 33.7 g/dL 32-36 [facility] Platelets bldOrdered By: Lyubov Burgos on 06-27-2022 Platelets (Bld) [#/Vol] 200 10*3/uL 150-450 [facility] Absolute lymphocyte countOrd ered By: Renard Burgos on 06-20-2022 Lymphocytes Auto (Unsp spec) [#/Vol] 1.57 10*3/uL 0.83-4.51 [facility] Basophil percentageOrdered B y: Renard Burgos on 06-20-2022 Basophils/100 WBC (Bld) 0.2 % 0-1 [facility] Eosinophils/100 WBC (Bld) 0.2 % 0-5 [facility] Neutrophils (Bld) [#/Vol] 6.5 10*3/uL 2.0-7.7 [facility] Neutrophils/100 WBC (Bld) 74.5 % 47-70 [facility] WBC (Bld) [#/Vol] 8.8 10*3/uL 4.4-11.0 [facility] Blood erythrocytes count (nu mber/volume)Ordered By: Renard Burgos on 06-20-2022 RBC (Bld) [#/Vol] 4.79 10*6/uL 4.6-6.2 [facility] Blood hemoglobin measurement (mass/volume)Ordered By: Renard Burgos on 06-20-2022 Hemoglobin (Bld) [Mass/Vol] 14.6 g/dL 13.0-16.5 [facility] Blood lymphocytes/100 leukoc ytesOrdered By: Renard Burgos on 06-20-2022 Lymphocytes/100 WBC (Bld) 17.8 % 19-41 [facility] Blood monocytes/100 leukocyt esOrdered By: Renard Burgos on 06-20-2022 Monocytes/100 WBC (Bld) 7.0 % 0-10 [facility] Blood platelet mean volumeOr dered By: Renard Burgos on 06-20-2022 Platelet mean volume (Bld) [Entitic vol] 11.1 fL 6.2-12.0 [facility] Determination of erythrocyte mean corpuscular volume (MCV)Ordered By: Renard Burgos on 06-20-2022 MCV (RBC) [Entitic vol] 92.1 fL 80-94 [facility] Hematocrit Auto (Bld) [Volum e fraction]Ordered By: Renard Burgos on 06-20-2022 Hematocrit (Bld) [Volume fraction] 44.1 % 40-54 [facility] Laboratory - Hematology and Cell countsOrdered By: Renard Burgos on 06-20-2022 Erythrocyte distribution width (RBC) [Entitic vol] 42.4 fL 35.1-43.9 [facility] Erythrocyte distribution width (RBC) [Ratio] 12.6 % 11.6-14.6 [facility] Immature granulocytes/100 WBC (Bld) 0.300 % 0.0-0.9 [facility] Comment on above: IG% - Immature Granu locytes (promyelocytes, myelocytes and metamyelocytes) > 1% indicates that a LEFT SHIFT is Present. MCH (RBC) [Entitic mass] 30.5 pg 27.0-32.0 [facility] Nucleated RBC/100 WBC (Bld) [Ratio] 0 % 0-5 [facility] MCHC Auto (RBC) [Mass/Vol]Or dered By: Renard Burgos on 06-20-2022 MCHC (RBC) [Mass/Vol] 33.1 g/dL 32-36 [facility] Platelets bldOrdered By: Lyubov Burgos on 06-20-2022 Platelets (Bld) [#/Vol] 207 10*3/uL 150-450 [facility] Absolute lymphocyte countOrd ered By: Renard Burgos on 06-13-2022 Lymphocytes Auto (Unsp spec) [#/Vol] 2.28 10*3/uL 0.83-4.51 [facility] Basophil percentageOrdered B y: Renard Burgos on 06-13-2022 Basophils/100 WBC (Bld) 0.5 % 0-1 [facility] Eosinophils/100 WBC (Bld) 0.4 % 0-5 [facility] Neutrophils (Bld) [#/Vol] 6.0 10*3/uL 2.0-7.7 [facility] Neutrophils/100 WBC (Bld) 65.6 % 47-70 [facility] WBC (Bld) [#/Vol] 9.2 10*3/uL 4.4-11.0 [facility] Blood erythrocytes count (nu mber/volume)Ordered By: Renard Burgos on 06-13-2022 RBC (Bld) [#/Vol] 4.55 10*6/uL 4.6-6.2 [facility] Blood hemoglobin measurement (mass/volume)Ordered By: Renard Burgos on 06-13-2022 Hemoglobin (Bld) [Mass/Vol] 13.7 g/dL 13.0-16.5 [facility] Blood lymphocytes/100 leukoc ytesOrdered By: Renard Burgos on 06-13-2022 Lymphocytes/100 WBC (Bld) 24.9 % 19-41 [facility] Blood monocytes/100 leukocyt esOrdered By: Renard Burgos on 06-13-2022 Monocytes/100 WBC (Bld) 8.2 % 0-10 [facility] Blood platelet mean volumeOr dered By: Renard Burgos on 06-13-2022 Platelet mean volume (Bld) [Entitic vol] 10.9 fL 6.2-12.0 [facility] Determination of erythrocyte mean corpuscular volume (MCV)Ordered By: Renard Burgos on 06-13-2022 MCV (RBC) [Entitic vol] 92.3 fL 80-94 [facility] Hematocrit Auto (Bld) [Volum e fraction]Ordered By: Renard Burgos on 06-13-2022 Hematocrit (Bld) [Volume fraction] 42.0 % 40-54 [facility] Laboratory - Hematology and Cell countsOrdered By: Renard Burgos on 06-13-2022 Erythrocyte distribution width (RBC) [Entitic vol] 43.2 fL 35.1-43.9 [facility] Erythrocyte distribution width (RBC) [Ratio] 12.8 % 11.6-14.6 [facility] Immature granulocytes/100 WBC (Bld) 0.400 % 0.0-0.9 [facility] Comment on above: IG% - Immature Granu locytes (promyelocytes, myelocytes and metamyelocytes) > 1% indicates that a LEFT SHIFT is Present. MCH (RBC) [Entitic mass] 30.1 pg 27.0-32.0 [facility] Nucleated RBC/100 WBC (Bld) [Ratio] 0 % 0-5 [facility] MCHC Auto (RBC) [Mass/Vol]Or dered By: eRnard Burgos on 06-13-2022 MCHC (RBC) [Mass/Vol] 32.6 g/dL 32-36 [facility] Platelets bldOrdered By: Lyubov Burgos on 06-13-2022 Platelets (Bld) [#/Vol] 203 10*3/uL 150-450 [facility] Absolute lymphocyte countOrd ered By: Renard Burgos on 06-06-2022 Lymphocytes Auto (Unsp spec) [#/Vol] 2.02 10*3/uL 0.83-4.51 [facility] Basophil percentageOrdered B y: Renard Burgos on 06-06-2022 Basophils/100 WBC (Bld) 0.5 % 0-1 [facility] Eosinophils/100 WBC (Bld) 0.7 % 0-5 [facility] Neutrophils (Bld) [#/Vol] 4.7 10*3/uL 2.0-7.7 [facility] Neutrophils/100 WBC (Bld) 63.3 % 47-70 [facility] WBC (Bld) [#/Vol] 7.4 10*3/uL 4.4-11.0 [facility] Blood erythrocytes count (nu mber/volume)Ordered By: Renard Burgos on 06-06-2022 RBC (Bld) [#/Vol] 4.57 10*6/uL 4.6-6.2 [facility] Blood hemoglobin measurement (mass/volume)Ordered By: Renard Burgos on 06-06-2022 Hemoglobin (Bld) [Mass/Vol] 14.0 g/dL 13.0-16.5 [facility] Blood lymphocytes/100 leukoc ytesOrdered By: Renard Burgos on 06-06-2022 Lymphocytes/100 WBC (Bld) 27.2 % 19-41 [facility] Blood monocytes/100 leukocyt esOrdered By: Renard Burgos on 06-06-2022 Monocytes/100 WBC (Bld) 7.9 % 0-10 [facility] Blood platelet mean volumeOr dered By: Renard Burgos on 06-06-2022 Platelet mean volume (Bld) [Entitic vol] 10.7 fL 6.2-12.0 [facility] Determination of erythrocyte mean corpuscular volume (MCV)Ordered By: Renard Burgos on 06-06-2022 MCV (RBC) [Entitic vol] 90.2 fL 80-94 [facility] Hematocrit Auto (Bld) [Volum e fraction]Ordered By: Renard Burgos on 06-06-2022 Hematocrit (Bld) [Volume fraction] 41.2 % 40-54 [facility] Laboratory - Hematology and Cell countsOrdered By: Renard Burgos on 06-06-2022 Erythrocyte distribution width (RBC) [Entitic vol] 41.5 fL 35.1-43.9 [facility] Erythrocyte distribution width (RBC) [Ratio] 12.7 % 11.6-14.6 [facility] Immature granulocytes/100 WBC (Bld) 0.400 % 0.0-0.9 [facility] Comment on above: IG% - Immature Granu locytes (promyelocytes, myelocytes and metamyelocytes) > 1% indicates that a LEFT SHIFT is Present. MCH (RBC) [Entitic mass] 30.6 pg 27.0-32.0 [facility] Nucleated RBC/100 WBC (Bld) [Ratio] 0 % 0-5 [facility] MCHC Auto (RBC) [Mass/Vol]Or dered By: Renard Burgos on 06-06-2022 MCHC (RBC) [Mass/Vol] 34.0 g/dL 32-36 [facility] Platelets bldOrdered By: Lyubov shirley Loretta on 06-06-2022 Platelets (Bld) [#/Vol] 197 10*3/uL 150-450 [facility] Absolute lymphocyte countOrd ered By: Renard Burgos on 05-30-2022 Lymphocytes Auto (Unsp spec) [#/Vol] 2.32 10*3/uL 0.83-4.51 [facility] Basophil percentageOrdered B y: Renard Burgos on 05-30-2022 Basophils/100 WBC (Bld) 0.4 % 0-1 [facility] Eosinophils/100 WBC (Bld) 0.5 % 0-5 [facility] Neutrophils (Bld) [#/Vol] 5.2 10*3/uL 2.0-7.7 [facility] Neutrophils/100 WBC (Bld) 62.6 % 47-70 [facility] WBC (Bld) [#/Vol] 8.3 10*3/uL 4.4-11.0 [facility] Blood erythrocytes count (nu mber/volume)Ordered By: Renard Burgos on 05-30-2022 RBC (Bld) [#/Vol] 4.87 10*6/uL 4.6-6.2 [facility] Blood hemoglobin measurement (mass/volume)Ordered By: Renard Burgos on 05-30-2022 Hemoglobin (Bld) [Mass/Vol] 14.6 g/dL 13.0-16.5 [facility] Blood lymphocytes/100 leukoc ytesOrdered By: Renard Burgos on 05-30-2022 Lymphocytes/100 WBC (Bld) 27.9 % 19-41 [facility] Blood monocytes/100 leukocyt esOrdered By: Renard Burgos on 05-30-2022 Monocytes/100 WBC (Bld) 8.0 % 0-10 [facility] Blood platelet mean volumeOr dered By: Renard Burgos on 05-30-2022 Platelet mean volume (Bld) [Entitic vol] 10.9 fL 6.2-12.0 [facility] Determination of erythrocyte mean corpuscular volume (MCV)Ordered By: Renard Burgos on 05-30-2022 MCV (RBC) [Entitic vol] 91.6 fL 80-94 [facility] Hematocrit Auto (Bld) [Volum e fraction]Ordered By: Renard Burgos on 05-30-2022 Hematocrit (Bld) [Volume fraction] 44.6 % 40-54 [facility] Laboratory - Hematology and Cell countsOrdered By: Renard Burgos on 05-30-2022 Erythrocyte distribution width (RBC) [Entitic vol] 42.4 fL 35.1-43.9 [facility] Erythrocyte distribution width (RBC) [Ratio] 12.6 % 11.6-14.6 [facility] Immature granulocytes/100 WBC (Bld) 0.600 % 0.0-0.9 [facility] Comment on above: IG% - Immature Granu locytes (promyelocytes, myelocytes and metamyelocytes) > 1% indicates that a LEFT SHIFT is Present. MCH (RBC) [Entitic mass] 30.0 pg 27.0-32.0 [facility] Nucleated RBC/100 WBC (Bld) [Ratio] 0 % 0-5 [facility] MCHC Auto (RBC) [Mass/Vol]Or dered By: Renard Burgos on 05-30-2022 MCHC (RBC) [Mass/Vol] 32.7 g/dL 32-36 [facility] Platelets bldOrdered By: Lyubov Burgos on 05-30-2022 Platelets (Bld) [#/Vol] 213 10*3/uL 150-450 [facility] Absolute lymphocyte countOrd ered By: Renard Burgos on 05-23-2022 Lymphocytes Auto (Unsp spec) [#/Vol] 2.07 10*3/uL 0.83-4.51 [facility] Basophil percentageOrdered B y: Renard Burgos on 05-23-2022 Basophils/100 WBC (Bld) 0.5 % 0-1 [facility] Eosinophils/100 WBC (Bld) 0.4 % 0-5 [facility] Neutrophils (Bld) [#/Vol] 5.7 10*3/uL 2.0-7.7 [facility] Neutrophils/100 WBC (Bld) 66.5 % 47-70 [facility] WBC (Bld) [#/Vol] 8.5 10*3/uL 4.4-11.0 [facility] Blood erythrocytes count (nu mber/volume)Ordered By: Renard Burgos on 05-23-2022 RBC (Bld) [#/Vol] 4.75 10*6/uL 4.6-6.2 [facility] Blood hemoglobin measurement (mass/volume)Ordered By: Renard Burgos on 05-23-2022 Hemoglobin (Bld) [Mass/Vol] 14.3 g/dL 13.0-16.5 [facility] Blood lymphocytes/100 leukoc ytesOrdered By: Renard Burgos on 05-23-2022 Lymphocytes/100 WBC (Bld) 24.4 % 19-41 [facility] Blood monocytes/100 leukocyt esOrdered By: Renard Burgos on 05-23-2022 Monocytes/100 WBC (Bld) 7.7 % 0-10 [facility] Blood platelet mean volumeOr dered By: Renard Burgos on 05-23-2022 Platelet mean volume (Bld) [Entitic vol] 11.1 fL 6.2-12.0 [facility] Determination of erythrocyte mean corpuscular volume (MCV)Ordered By: Renard Burgos on 05-23-2022 MCV (RBC) [Entitic vol] 90.9 fL 80-94 [facility] Hematocrit Auto (Bld) [Volum e fraction]Ordered By: Renard Burgos on 05-23-2022 Hematocrit (Bld) [Volume fraction] 43.2 % 40-54 [facility] Laboratory - Hematology and Cell countsOrdered By: Renard Burgos on 05-23-2022 Erythrocyte distribution width (RBC) [Entitic vol] 41.7 fL 35.1-43.9 [facility] Erythrocyte distribution width (RBC) [Ratio] 12.5 % 11.6-14.6 [facility] Immature granulocytes/100 WBC (Bld) 0.500 % 0.0-0.9 [facility] Comment on above: IG% - Immature Granu locytes (promyelocytes, myelocytes and metamyelocytes) > 1% indicates that a LEFT SHIFT is Present. MCH (RBC) [Entitic mass] 30.1 pg 27.0-32.0 [facility] Nucleated RBC/[facility]/Vol]Or dered By: Renard Burgos on 05-23-2022 MCHC (RBC) [Mass/Vol] 33.1 g/dL 32-36 [facility] Platelets bldOrdered By: Pet shirley Burgos on 05-23-2022 Platelets (Bld) [#/Vol] 213 10*3/uL 150-450 [facility] No Panel Informationon 05-20 Dejah Hazel DO 05/20/2022 7:32 PM Feeding Tube Replacement Performed by: Dejah Hazel DO Authorized by: Abelardo Rios DO Consent: Consent obtained: Verbal Consent given by: Patient [place] protocol: Patient identity confirmed: Verbally with patient [...] Procedure completion: Tolerated well, no immediate complications [facility] [place] XR Abdomen Single viewon G-tube position is within the stomach. No evidence of contrast extravasation. Report Dictated on Electronically Signed By: Jason Tran Electronically Signed Date/Time: 05/20/2022 7:38 PM [facility] Patient Name: KATHYA HOOPER Exam Date/Time: 05/20/2022 19:18 Procedure: XR ABDOMEN 1 VIEW Ordering Provider: RIOS TYLER Reason For Exam: SUPINE ABDOMEN (KUB) CLINICAL INDICATION: confirm placement of G tube A supine plain film of the abdomen was obtained. Repeat abdominal radiographs following hand injection of enteric contrast via the patient's enteric tube. (Gastrografin 30 mL). COMPARISON: None FINDINGS: On the starbucks clerk image, no dilated bowel loops are identified. Feeding tube overlies the epigastric region of the abdomen. On the postcontrast images, there is a small amount of enteric contrast in the stomach and contrast is present throughout the proximal duodenum. No extravasated contrast is evident. [facility] Jason Tran M D - [...] 30 mL). COMPARISON: None FINDINGS: On the starbucks clerk image, no dilated bowel loops are identified. [...] Tran Electronically Signed Date/Time: 05/20/2022 7:38 PM [facility] Radiology Study observation (narrative) [facility] XR Abdomen Single viewOrdere d By: Jason Tran on 05-20-2022 [facility] [employer] Work Phone: Absolute lymphocyte countOrd ered By: Renard Burgos on 05-16-2022 Lymphocytes Auto (Unsp spec) [#/Vol] 2.06 10*3/uL 0.83-4.51 [facility] Basophil percentageOrdered B y: Renard Burgos on 05-16-2022 Basophils/100 WBC (Bld) 0.6 % 0-1 [facility] Eosinophils/100 WBC (Bld) 0.6 % 0-5 [facility] Neutrophils (Bld) [#/Vol] 4.4 10*3/uL 2.0-7.7 [facility] Neutrophils/100 WBC (Bld) 61.2 % 47-70 [facility] WBC (Bld) [#/Vol] 7.1 10*3/uL 4.4-11.0 [facility] Blood erythrocytes count (nu mber/volume)Ordered By: Renard Burgos on 05-16-2022 RBC (Bld) [#/Vol] 4.58 10*6/uL 4.6-6.2 [facility] Blood hemoglobin measurement (mass/volume)Ordered By: Renard Burgos on 05-16-2022 Hemoglobin (Bld) [Mass/Vol] 13.9 g/dL 13.0-16.5 [facility] Blood lymphocytes/100 leukoc ytesOrdered By: Renard Burgos on 05-16-2022 Lymphocytes/100 WBC (Bld) 29.0 % 19-41 [facility] Blood monocytes/100 leukocyt esOrdered By: Renard Burgos on 05-16-2022 Monocytes/100 WBC (Bld) 8.2 % 0-10 [facility] Blood platelet mean volumeOr dered By: Renard Burgos on 05-16-2022 Platelet mean volume (Bld) [Entitic vol] 11.1 fL 6.2-12.0 [facility] Determination of erythrocyte mean corpuscular volume (MCV)Ordered By: Renard Burgos on 05-16-2022 MCV (RBC) [Entitic vol] 91.5 fL 80-94 [facility] Hematocrit Auto (Bld) [Volum e fraction]Ordered By: Renard Burgos on 05-16-2022 Hematocrit (Bld) [Volume fraction] 41.9 % 40-54 [facility] Laboratory - Hematology and Cell countsOrdered By: Renard Burgos on 05-16-2022 Erythrocyte distribution width (RBC) [Entitic vol] 41.3 fL 35.1-43.9 [facility] Erythrocyte distribution width (RBC) [Ratio] 12.5 % 11.6-14.6 [facility] Immature granulocytes/100 WBC (Bld) 0.400 % 0.0-0.9 [facility] Comment on above: IG% - Immature Granu locytes (promyelocytes, myelocytes and metamyelocytes) > 1% indicates that a LEFT SHIFT is Present. MCH (RBC) [Entitic mass] 30.3 pg 27.0-32.0 [facility] Nucleated RBC/100 WBC (Bld) [Ratio] 0 % 0-5 [facility] MCHC Auto (RBC) [Mass/Vol]Or dered By: Renard Burgos on 05-16-2022 MCHC (RBC) [Mass/Vol] 33.2 g/dL 32-36 [facility] Platelets bldOrdered By: Lyubov Burgos on 05-16-2022 Platelets (Bld) [#/Vol] 205 10*3/uL 150-450 [facility] Absolute lymphocyte countOrd ered By: Renard Burgos on 05-09-2022 Lymphocytes Auto (Unsp spec) [#/Vol] 1.92 10*3/uL 0.83-4.51 [facility] Basophil percentageOrdered B y: Renard Burgos on 05-09-2022 Basophils/100 WBC (Bld) 0.7 % 0-1 [facility] Eosinophils/100 WBC (Bld) 0.7 % 0-5 [facility] Neutrophils (Bld) [#/Vol] 4.3 10*3/uL 2.0-7.7 [facility] Neutrophils/100 WBC (Bld) 60.9 % 47-70 [facility] WBC (Bld) [#/Vol] 7.1 10*3/uL 4.4-11.0 [facility] Blood erythrocytes count (nu mber/volume)Ordered By: Renard Burgos on 05-09-2022 RBC (Bld) [#/Vol] 4.67 10*6/uL 4.6-6.2 [facility] Blood hemoglobin measurement (mass/volume)Ordered By: Renard Burgos on 05-09-2022 Hemoglobin (Bld) [Mass/Vol] 14.1 g/dL 13.0-16.5 [facility] Blood lymphocytes/100 leukoc ytesOrdered By: Renard Burgos on 05-09-2022 Lymphocytes/100 WBC (Bld) 27.2 % 19-41 [facility] Blood monocytes/100 leukocyt esOrdered By: Renard Burgos on 05-09-2022 Monocytes/100 WBC (Bld) 10.2 % 0-10 [facility] Blood platelet mean volumeOr dered By: Renard Burgos on 05-09-2022 Platelet mean volume (Bld) [Entitic vol] 11.5 fL 6.2-12.0 [facility] Determination of erythrocyte mean corpuscular volume (MCV)Ordered By: Renard Burgos on 05-09-2022 MCV (RBC) [Entitic vol] 91.0 fL 80-94 [facility] Hematocrit Auto (Bld) [Volum e fraction]Ordered By: Renard Burgos on 05-09-2022 Hematocrit (Bld) [Volume fraction] 42.5 % 40-54 [facility] Laboratory - Hematology and Cell countsOrdered By: Renard Burgos on 05-09-2022 Erythrocyte distribution width (RBC) [Entitic vol] 41.4 fL 35.1-43.9 [facility] Erythrocyte distribution width (RBC) [Ratio] 12.7 % 11.6-14.6 [facility] Immature granulocytes/100 WBC (Bld) 0.300 % 0.0-0.9 [facility] Comment on above: IG% - Immature Granu locytes (promyelocytes, myelocytes and metamyelocytes) > 1% indicates that a LEFT SHIFT is Present. MCH (RBC) [Entitic mass] 30.2 pg 27.0-32.0 [facility] Nucleated RBC/100 WBC (Bld) [Ratio] 0.4 % 0-5 [facility] MCHC Auto (RBC) [Mass/Vol]Or dered By: Renard Burgos on 05-09-2022 MCHC (RBC) [Mass/Vol] 33.2 g/dL 32-36 [facility] Platelets bldOrdered By: Lyubov Burgos on 05-09-2022 Platelets (Bld) [#/Vol] 202 10*3/uL 150-450 [facility] Absolute lymphocyte countOrd ered By: Renard Burgos on 05-03-2022 Lymphocytes Auto (Unsp spec) [#/Vol] 1.86 10*3/uL 0.83-4.51 [facility] Basophil percentageOrdered B y: Renard Burgos on 05-03-2022 Basophils/100 WBC (Bld) 0.3 % 0-1 [facility] Eosinophils/100 WBC (Bld) 0.3 % 0-5 [facility] Neutrophils (Bld) [#/Vol] 6.4 10*3/uL 2.0-7.7 [facility] Neutrophils/100 WBC (Bld) 71.9 % 47-70 [facility] WBC (Bld) [#/Vol] 8.9 10*3/uL 4.4-11.0 [facility] Blood erythrocytes count (nu mber/volume)Ordered By: Renard Burgos on 05-03-2022 RBC (Bld) [#/Vol] 4.65 10*6/uL 4.6-6.2 [facility] Blood hemoglobin measurement (mass/volume)Ordered By: Renard Burgos on 05-03-2022 Hemoglobin (Bld) [Mass/Vol] 14.5 g/dL 13.0-16.5 [facility] Blood lymphocytes/100 leukoc ytesOrdered By: Renard Burgos on 05-03-2022 Lymphocytes/100 WBC (Bld) 20.9 % 19-41 [facility] Blood monocytes/100 leukocyt esOrdered By: Renard Burgos on 05-03-2022 Monocytes/100 WBC (Bld) 6.2 % 0-10 [facility] Blood platelet mean volumeOr dered By: Renard Burgos on 05-03-2022 Platelet mean volume (Bld) [Entitic vol] 11.1 fL 6.2-12.0 [facility] Determination of erythrocyte mean corpuscular volume (MCV)Ordered By: Renard Burgos on 05-03-2022 MCV (RBC) [Entitic vol] 90.1 fL 80-94 [facility] Hematocrit Auto (Bld) [Volum e fraction]Ordered By: Renard Burgos on 05-03-2022 Hematocrit (Bld) [Volume fraction] 41.9 % 40-54 [facility] Laboratory - Hematology and Cell countsOrdered By: Renard Burgos on 05-03-2022 Erythrocyte distribution width (RBC) [Entitic vol] 39.7 fL 35.1-43.9 [facility] Erythrocyte distribution width (RBC) [Ratio] 12.2 % 11.6-14.6 [facility] Immature granulocytes/100 WBC (Bld) 0.400 % 0.0-0.9 [facility] Comment on above: IG% - Immature Granu locytes (promyelocytes, myelocytes and metamyelocytes) > 1% indicates that a LEFT SHIFT is Present. MCH (RBC) [Entitic mass] 31.2 pg 27.0-32.0 [facility] Nucleated RBC/100 WBC (Bld) [Ratio] 0 % 0-5 [facility] MCHC Auto (RBC) [Mass/Vol]Or dered By: Renard Burgos on 05-03-2022 MCHC (RBC) [Mass/Vol] 34.6 g/dL 32-36 [facility] Platelets bldOrdered By: Lyubov Burgos on 05-03-2022 Platelets (Bld) [#/Vol] 203 10*3/uL 150-450 [facility] Absolute lymphocyte countOrd ered By: Renard Burgos on 04-26-2022 Lymphocytes Auto (Unsp spec) [#/Vol] 2.79 10*3/uL 0.83-4.51 [facility] Basophil percentageOrdered B y: Renard Burgos on 04-26-2022 Basophils/100 WBC (Bld) 0.4 % 0-1 [facility] Eosinophils/100 WBC (Bld) 0.4 % 0-5 [facility] Neutrophils (Bld) [#/Vol] 5.9 10*3/uL 2.0-7.7 [facility] Neutrophils/100 WBC (Bld) 60.9 % 47-70 [facility] WBC (Bld) [#/Vol] 9.7 10*3/uL 4.4-11.0 [facility] Blood erythrocytes count (nu mber/volume)Ordered By: Renard Burgos on 04-26-2022 RBC (Bld) [#/Vol] 4.92 10*6/uL 4.6-6.2 [facility] Blood hemoglobin measurement (mass/volume)Ordered By: Renard Burgos on 04-26-2022 Hemoglobin (Bld) [Mass/Vol] 15.2 g/dL 13.0-16.5 [facility] Blood lymphocytes/100 leukoc ytesOrdered By: Renard Burgos on 04-26-2022 Lymphocytes/100 WBC (Bld) 28.9 % 19-41 [facility] Blood monocytes/100 leukocyt esOrdered By: Renard Burgos on 04-26-2022 Monocytes/100 WBC (Bld) 9.0 % 0-10 [facility] Blood platelet mean volumeOr dered By: Renard Burgos on 04-26-2022 Platelet mean volume (Bld) [Entitic vol] 11.0 fL 6.2-12.0 [facility] Determination of erythrocyte mean corpuscular volume (MCV)Ordered By: Renard Burgos on 04-26-2022 MCV (RBC) [Entitic vol] 92.3 fL 80-94 [facility] Hematocrit Auto (Bld) [Volum e fraction]Ordered By: Renard Burgos on 04-26-2022 Hematocrit (Bld) [Volume fraction] 45.4 % 40-54 [facility] Laboratory - Hematology and Cell countsOrdered By: Renard Burgos on 04-26-2022 Erythrocyte distribution width (RBC) [Entitic vol] 42.1 fL 35.1-43.9 [facility] Erythrocyte distribution width (RBC) [Ratio] 12.5 % 11.6-14.6 [facility] Immature granulocytes/100 WBC (Bld) 0.400 % 0.0-0.9 [facility] Comment on above: IG% - Immature Granu locytes (promyelocytes, myelocytes and metamyelocytes) > 1% indicates that a LEFT SHIFT is Present. MCH (RBC) [Entitic mass] 30.9 pg 27.0-32.0 [facility] Nucleated RBC/100 WBC (Bld) [Ratio] 0 % 0-5 [facility] MCHC Auto (RBC) [Mass/Vol]Or dered By: Renard Burgos on 04-26-2022 MCHC (RBC) [Mass/Vol] 33.5 g/dL 32-36 [facility] Platelets bldOrdered By: Lyubov Burgos on 04-26-2022 Platelets (Bld) [#/Vol] 178 10*3/uL 150-450 [facility] Absolute lymphocyte countOrd ered By: Renard Burgos on 04-18-2022 Lymphocytes Auto (Unsp spec) [#/Vol] 2.03 10*3/uL 0.83-4.51 [facility] Basophil percentageOrdered B y: Renard Burgos on 04-18-2022 Basophils/100 WBC (Bld) 0.6 % 0-1 [facility] Eosinophils/100 WBC (Bld) 0.6 % 0-5 [facility] Neutrophils (Bld) [#/Vol] 4.5 10*3/uL 2.0-7.7 [facility] Neutrophils/100 WBC (Bld) 62.0 % 47-70 [facility] WBC (Bld) [#/Vol] 7.2 10*3/uL 4.4-11.0 [facility] Blood erythrocytes count (nu mber/volume)Ordered By: Renard Burgos on 04-18-2022 RBC (Bld) [#/Vol] 4.67 10*6/uL 4.6-6.2 [facility] Blood hemoglobin measurement (mass/volume)Ordered By: Renard Burgos on 04-18-2022 Hemoglobin (Bld) [Mass/Vol] 14.5 g/dL 13.0-16.5 [facility] Blood lymphocytes/100 leukoc ytesOrdered By: Renard Burgos on 04-18-2022 Lymphocytes/100 WBC (Bld) 28.2 % 19-41 [facility] Blood monocytes/100 leukocyt esOrdered By: Renard Burgos on 04-18-2022 Monocytes/100 WBC (Bld) 8.2 % 0-10 [facility] Blood platelet mean volumeOr dered By: Renard Burgos on 04-18-2022 Platelet mean volume (Bld) [Entitic vol] 11.2 fL 6.2-12.0 [facility] Determination of erythrocyte mean corpuscular volume (MCV)Ordered By: Renard Burgos on 04-18-2022 MCV (RBC) [Entitic vol] 90.8 fL 80-94 [facility] Hematocrit Auto (Bld) [Volum e fraction]Ordered By: Renard Burgos on 04-18-2022 Hematocrit (Bld) [Volume fraction] 42.4 % 40-54 [facility] Laboratory - Hematology and Cell countsOrdered By: Renard Burgos on 04-18-2022 Erythrocyte distribution width (RBC) [Entitic vol] 41.1 fL 35.1-43.9 [facility] Erythrocyte distribution width (RBC) [Ratio] 12.5 % 11.6-14.6 [facility] Immature granulocytes/100 WBC (Bld) 0.400 % 0.0-0.9 [facility] Comment on above: IG% - Immature Granu locytes (promyelocytes, myelocytes and metamyelocytes) > 1% indicates that a LEFT SHIFT is Present. MCH (RBC) [Entitic mass] 31.0 pg 27.0-32.0 [facility] Nucleated RBC/100 WBC (Bld) [Ratio] 0 % 0-5 [facility] MCHC Auto (RBC) [Mass/Vol]Or dered By: Renard Burgos on 04-18-2022 MCHC (RBC) [Mass/Vol] 34.2 g/dL 32-36 [facility] Platelets bldOrdered By: Pet shirley Burgos on 04-18-2022 Platelets (Bld) [#/Vol] 196 10*3/uL 150-450 [facility] Basophil percentageOrdered B y: Renard Burgos on 04-14-2022 Bilirubin [Mass/Vol] 0.40 mg/dL 0.20-1.00 [facility] Comment on above: For patients on eltr ombopag therapy, use of Dimension [place] TBIL is not recommended. Protein [Mass/Vol] 6.3 g/dL 6.4-8.2 [facility] Direct bilirubinOrdered By: Renard Burgos on 04-14-2022 Bilirubin.direct [Mass/Vol] 0.12 mg/dL 0.00-0.30 [facility] Laboratory - Chemistry and C hemistry - challengeOrdered By: Renard Burgos on 04-14-2022 ALP [Catalytic activity/Vol] 117 U/L 45-117 [facility] ALT [Catalytic activity/Vol] 26 U/L 16-61 [facility] Globulin (S) [Mass/Vol] 3.2 g/dL 2.2-4.2 [facility] Serum or plasma albumin gordy urement (mass/volume)Ordered By: Renard Burgos on 04-14-2022 Albumin [Mass/Vol] 3.1 g/dL 3.2-5.0 [facility] Thin prep Papanicolaou smear with manual screeningOrdered By: Renard Burgos on 04-14-2022 Thin prep Papanicolaou smear with manual screening 12 U/L 15-37 [facility] Absolute lymphocyte countOrd ered By: Renard Burgos on 04-11-2022 Lymphocytes Auto (Unsp spec) [#/Vol] 2.16 10*3/uL 0.83-4.51 [facility] Basophil percentageOrdered B y: Renard Burgos on 04-11-2022 Basophils/100 WBC (Bld) 0.4 % 0-1 [facility] Eosinophils/100 WBC (Bld) 0.4 % 0-5 [facility] Neutrophils (Bld) [#/Vol] 4.2 10*3/uL 2.0-7.7 [facility] Neutrophils/100 WBC (Bld) 61.1 % 47-70 [facility] WBC (Bld) [#/Vol] 6.9 10*3/uL 4.4-11.0 [facility] Blood erythrocytes count (nu mber/volume)Ordered By: Renard Burgos on 04-11-2022 RBC (Bld) [#/Vol] 4.58 10*6/uL 4.6-6.2 [facility] Blood hemoglobin measurement (mass/volume)Ordered By: Renard Burgos on 04-11-2022 Hemoglobin (Bld) [Mass/Vol] 13.9 g/dL 13.0-16.5 [facility] Blood lymphocytes/100 leukoc ytesOrdered By: Renard Burgos on 04-11-2022 Lymphocytes/100 WBC (Bld) 31.2 % 19-41 [facility] Blood monocytes/100 leukocyt esOrdered By: Renard Burgos on 04-11-2022 Monocytes/100 WBC (Bld) 6.5 % 0-10 [facility] Blood platelet mean volumeOr dered By: Renard Burgos on 04-11-2022 Platelet mean volume (Bld) [Entitic vol] 11.4 fL 6.2-12.0 [facility] Determination of erythrocyte mean corpuscular volume (MCV)Ordered By: Renard Burgos on 04-11-2022 MCV (RBC) [Entitic vol] 91.9 fL 80-94 [facility] Hematocrit Auto (Bld) [Volum e fraction]Ordered By: Renard Burgos on 04-11-2022 Hematocrit (Bld) [Volume fraction] 42.1 % 40-54 [facility] Laboratory - Hematology and Cell countsOrdered By: Renard Burgos on 04-11-2022 Erythrocyte distribution width (RBC) [Entitic vol] 41.5 fL 35.1-43.9 [facility] Erythrocyte distribution width (RBC) [Ratio] 12.3 % 11.6-14.6 [facility] Immature granulocytes/100 WBC (Bld) 0.400 % 0.0-0.9 [facility] Comment on above: IG% - Immature Granu locytes (promyelocytes, myelocytes and metamyelocytes) > 1% indicates that a LEFT SHIFT is Present. MCH (RBC) [Entitic mass] 30.3 pg 27.0-32.0 [facility] Nucleated RBC/100 WBC (Bld) [Ratio] 0 % 0-5 [facility] MCHC Auto (RBC) [Mass/Vol]Or dered By: Renard Burgos on 04-11-2022 MCHC (RBC) [Mass/Vol] 33.0 g/dL 32-36 [facility] Platelets bldOrdered By: Lyubov Burgos on 04-11-2022 Platelets (Bld) [#/Vol] 191 10*3/uL 150-450 [facility] Absolute lymphocyte countOrd ered By: Renard Burgos on 04-04-2022 Lymphocytes Auto (Unsp spec) [#/Vol] 1.99 10*3/uL 0.83-4.51 [facility] Basophil percentageOrdered B y: Renard Burgos on 04-04-2022 Basophils/100 WBC (Bld) 0.4 % 0-1 [facility] Cholesterol [Mass/Vol] 158 mg/dL <200 [facility] Comment on above: <200 mg/dL Desirable 200-240 mg/dL Borderline >240 mg/dL High Risk Eosinophils/100 WBC (Bld) 0.4 % 0-5 [facility] Neutrophils (Bld) [#/Vol] 4.9 10*3/uL 2.0-7.7 [facility] Neutrophils/100 WBC (Bld) 64.2 % 47-70 [facility] Triglyceride [Mass/Vol] 259 mg/dL <199 [facility] Comment on above: The drugs N-Acetylcy steine and Metamizole may falsely depress this assay.Serum Triglycerides Reference Interval Normal <150 mg/dL Borderline high 150 - 199 mg/dL High 200 - 499 mg/dL Very High > or = 500 mg/dL WBC (Bld) [#/Vol] 7.7 10*3/uL 4.4-11.0 [facility] Blood erythrocytes count (nu mber/volume)Ordered By: Renard Burgos on 04-04-2022 RBC (Bld) [#/Vol] 4.63 10*6/uL 4.6-6.2 [facility] Blood hemoglobin measurement (mass/volume)Ordered By: Renard Burgos on 04-04-2022 Hemoglobin (Bld) [Mass/Vol] 14.1 g/dL 13.0-16.5 [facility] Blood lymphocytes/100 leukoc ytesOrdered By: Renard Burgos on 04-04-2022 Lymphocytes/100 WBC (Bld) 25.9 % 19-41 [facility] Blood monocytes/100 leukocyt esOrdered By: Renard Burgos on 04-04-2022 Monocytes/100 WBC (Bld) 8.6 % 0-10 [facility] Blood platelet mean volumeOr dered By: Renard Burgos on 04-04-2022 Platelet mean volume (Bld) [Entitic vol] 11.3 fL 6.2-12.0 [facility] Determination of erythrocyte mean corpuscular volume (MCV)Ordered By: Renard Burgos on 04-04-2022 MCV (RBC) [Entitic vol] 90.7 fL 80-94 [facility] Hematocrit Auto (Bld) [Volum e fraction]Ordered By: Renard Burgos on 04-04-2022 Hematocrit (Bld) [Volume fraction] 42.0 % 40-54 [facility] Laboratory - Hematology and Cell countsOrdered By: Renard Burgos on 04-04-2022 Erythrocyte distribution width (RBC) [Entitic vol] 41.3 fL 35.1-43.9 [facility] Erythrocyte distribution width (RBC) [Ratio] 12.4 % 11.6-14.6 [facility] Immature granulocytes/100 WBC (Bld) 0.500 % 0.0-0.9 [facility] Comment on above: IG% - Immature Granu locytes (promyelocytes, myelocytes and metamyelocytes) > 1% indicates that a LEFT SHIFT is Present. MCH (RBC) [Entitic mass] 30.5 pg 27.0-32.0 [facility] Nucleated RBC/100 WBC (Bld) [Ratio] 0 % 0-5 [facility] MCHC Auto (RBC) [Mass/Vol]Or dered By: Renard Burgos on 04-04-2022 MCHC (RBC) [Mass/Vol] 33.6 g/dL 32-36 [facility] Platelets bldOrdered By: Lyubov Burgos on 04-04-2022 Platelets (Bld) [#/Vol] 174 10*3/uL 150-450 [facility] Serum or plasma cholesterol in HDL measurement (mass/volume)Ordered By: Renard Burgos on 04-04-2022 Cholesterol in HDL [Mass/Vol] 26 mg/dL >40 [facility] Comment on above: The drugs N-Acetylcy steine and Metamizole may falsely depress this assay. Reference Range HDL <40 mg/dL Low HDL Cholesterol HDL >or= 60 mg/dL High HDL Cholesterol Serum or plasma cholesterol in VLDL measurement (mass/volume)Ordered By: Renard Burgos on 04-04-2022 Cholesterol in VLDL [Mass/Vol] 52 mg/dL 5-40 [facility] Serum or plasma low density lipoprotein (LDL) cholesterol measurement (mass/volume)Ordered By: Renard Burgos on 04-04-2022 Cholesterol in LDL [Mass/Vol] 80 mg/dL 0-130 [facility] Absolute lymphocyte countOrd ered By: Renard Burgos on 03-28-2022 Lymphocytes Auto (Unsp spec) [#/Vol] 2.25 10*3/uL 0.83-4.51 [facility] Basophil percentageOrdered B y: Renard Burgos on 03-28-2022 Basophils/100 WBC (Bld) 0.6 % 0-1 [facility] Eosinophils/100 WBC (Bld) 0.5 % 0-5 [facility] Neutrophils (Bld) [#/Vol] 4.8 10*3/uL 2.0-7.7 [facility] Neutrophils/100 WBC (Bld) 60.5 % 47-70 [facility] WBC (Bld) [#/Vol] 8.0 10*3/uL 4.4-11.0 [facility] Blood erythrocytes count (nu mber/volume)Ordered By: Renard Burgos on 03-28-2022 RBC (Bld) [#/Vol] 4.69 10*6/uL 4.6-6.2 [facility] Blood hemoglobin measurement (mass/volume)Ordered By: Renard Burgos on 03-28-2022 Hemoglobin (Bld) [Mass/Vol] 14.4 g/dL 13.0-16.5 [facility] Blood lymphocytes/100 leukoc ytesOrdered By: Renard Burgos on 03-28-2022 Lymphocytes/100 WBC (Bld) 28.1 % 19-41 [facility] Blood monocytes/100 leukocyt esOrdered By: Renard Burgos on 03-28-2022 Monocytes/100 WBC (Bld) 9.8 % 0-10 [facility] Blood platelet mean volumeOr dered By: Renard Burgos on 03-28-2022 Platelet mean volume (Bld) [Entitic vol] 10.8 fL 6.2-12.0 [facility] Determination of erythrocyte mean corpuscular volume (MCV)Ordered By: Renard Burgos on 03-28-2022 MCV (RBC) [Entitic vol] 92.1 fL 80-94 [facility] Hematocrit Auto (Bld) [Volum e fraction]Ordered By: Renard Burgos on 03-28-2022 Hematocrit (Bld) [Volume fraction] 43.2 % 40-54 [facility] Laboratory - Hematology and Cell countsOrdered By: Renard Burgos on 03-28-2022 Erythrocyte distribution width (RBC) [Entitic vol] 42.0 fL 35.1-43.9 [facility] Erythrocyte distribution width (RBC) [Ratio] 12.5 % 11.6-14.6 [facility] Immature granulocytes/100 WBC (Bld) 0.500 % 0.0-0.9 [facility] Comment on above: IG% - Immature Granu locytes (promyelocytes, myelocytes and metamyelocytes) > 1% indicates that a LEFT SHIFT is Present. MCH (RBC) [Entitic mass] 30.7 pg 27.0-32.0 [facility] Nucleated RBC/100 WBC (Bld) [Ratio] 0 % 0-5 [facility] MCHC Auto (RBC) [Mass/Vol]Or dered By: Renard Burgos on 03-28-2022 MCHC (RBC) [Mass/Vol] 33.3 g/dL 32-36 [facility] Platelets bldOrdered By: Lyubov Burgos on 03-28-2022 Platelets (Bld) [#/Vol] 207 10*3/uL 150-450 [facility] Absolute lymphocyte countOrd ered By: Renard Burgos on 03-21-2022 Lymphocytes Auto (Unsp spec) [#/Vol] 1.98 10*3/uL 0.83-4.51 [facility] Basophil percentageOrdered B y: Renard Burgos on 03-21-2022 Basophils/100 WBC (Bld) 0.5 % 0-1 [facility] Eosinophils/100 WBC (Bld) 0.5 % 0-5 [facility] Neutrophils (Bld) [#/Vol] 4.9 10*3/uL 2.0-7.7 [facility] Neutrophils/100 WBC (Bld) 63.6 % 47-70 [facility] WBC (Bld) [#/Vol] 7.7 10*3/uL 4.4-11.0 [facility] Blood erythrocytes count (nu mber/volume)Ordered By: Renard Burgos on 03-21-2022 RBC (Bld) [#/Vol] 4.82 10*6/uL 4.6-6.2 [facility] Blood hemoglobin measurement (mass/volume)Ordered By: Renard Burgos on 03-21-2022 Hemoglobin (Bld) [Mass/Vol] 14.9 g/dL 13.0-16.5 [facility] Blood lymphocytes/100 leukoc ytesOrdered By: Renard Burgos on 03-21-2022 Lymphocytes/100 WBC (Bld) 25.7 % 19-41 [facility] Blood monocytes/100 leukocyt esOrdered By: Renard Burgos on 03-21-2022 Monocytes/100 WBC (Bld) 9.3 % 0-10 [facility] Blood platelet mean volumeOr dered By: Renard Burgos on 03-21-2022 Platelet mean volume (Bld) [Entitic vol] 10.8 fL 6.2-12.0 [facility] Determination of erythrocyte mean corpuscular volume (MCV)Ordered By: Renard Burgos on 03-21-2022 MCV (RBC) [Entitic vol] 90.7 fL 80-94 [facility] Hematocrit Auto (Bld) [Volum e fraction]Ordered By: Renard Burgos on 03-21-2022 Hematocrit (Bld) [Volume fraction] 43.7 % 40-54 [facility] Laboratory - Hematology and Cell countsOrdered By: Renard Burgos on 03-21-2022 Erythrocyte distribution width (RBC) [Entitic vol] 40.8 fL 35.1-43.9 [facility] Erythrocyte distribution width (RBC) [Ratio] 12.4 % 11.6-14.6 [facility] Immature granulocytes/100 WBC (Bld) 0.400 % 0.0-0.9 [facility] Comment on above: IG% - Immature Granu locytes (promyelocytes, myelocytes and metamyelocytes) > 1% indicates that a LEFT SHIFT is Present. MCH (RBC) [Entitic mass] 30.9 pg 27.0-32.0 [facility] Nucleated RBC/100 WBC (Bld) [Ratio] 0 % 0-5 [facility] MCHC Auto (RBC) [Mass/Vol]Or dered By: Renard Burgos on 03-21-2022 MCHC (RBC) [Mass/Vol] 34.1 g/dL 32-36 [facility] Platelets bldOrdered By: Lyubov Bugros on 03-21-2022 Platelets (Bld) [#/Vol] 186 10*3/uL 150-450 [facility] Absolute lymphocyte countOrd ered By: Renard Burgos on 03-14-2022 Lymphocytes Auto (Unsp spec) [#/Vol] 2.18 10*3/uL 0.83-4.51 [facility] Basophil percentageOrdered B y: Renard Burgos on 03-14-2022 Basophils/100 WBC (Bld) 0.4 % 0-1 [facility] Eosinophils/100 WBC (Bld) 0.6 % 0-5 [facility] Neutrophils (Bld) [#/Vol] 4.3 10*3/uL 2.0-7.7 [facility] Neutrophils/100 WBC (Bld) 58.8 % 47-70 [facility] WBC (Bld) [#/Vol] 7.3 10*3/uL 4.4-11.0 [facility] Blood erythrocytes count (nu mber/volume)Ordered By: Renard Burgos on 03-14-2022 RBC (Bld) [#/Vol] 4.80 10*6/uL 4.6-6.2 [facility] Blood hemoglobin measurement (mass/volume)Ordered By: Renard Burgos on 03-14-2022 Hemoglobin (Bld) [Mass/Vol] 14.5 g/dL 13.0-16.5 [facility] Blood lymphocytes/100 leukoc ytesOrdered By: Renrad Burgos on 03-14-2022 Lymphocytes/100 WBC (Bld) 30.1 % 19-41 [facility] Blood monocytes/100 leukocyt esOrdered By: Renard Burgos on 03-14-2022 Monocytes/100 WBC (Bld) 9.5 % 0-10 [facility] Blood platelet mean volumeOr dered By: Renard Burgos on 03-14-2022 Platelet mean volume (Bld) [Entitic vol] 11.0 fL 6.2-12.0 [facility] Determination of erythrocyte mean corpuscular volume (MCV)Ordered By: Renard Burgos on 03-14-2022 MCV (RBC) [Entitic vol] 91.5 fL 80-94 [facility] Hematocrit Auto (Bld) [Volum e fraction]Ordered By: Renard Burgos on 03-14-2022 Hematocrit (Bld) [Volume fraction] 43.9 % 40-54 [facility] Laboratory - Hematology and Cell countsOrdered By: Renard Burgos on 03-14-2022 Erythrocyte distribution width (RBC) [Entitic vol] 41.1 fL 35.1-43.9 [facility] Erythrocyte distribution width (RBC) [Ratio] 12.4 % 11.6-14.6 [facility] Immature granulocytes/100 WBC (Bld) 0.600 % 0.0-0.9 [facility] Comment on above: IG% - Immature Granu locytes (promyelocytes, myelocytes and metamyelocytes) > 1% indicates that a LEFT SHIFT is Present. MCH (RBC) [Entitic mass] 30.2 pg 27.0-32.0 [facility] Nucleated RBC/100 WBC (Bld) [Ratio] 0 % 0-5 [facility] MCHC Auto (RBC) [Mass/Vol]Or dered By: Renard Burgos on 03-14-2022 MCHC (RBC) [Mass/Vol] 33.0 g/dL 32-36 [facility] Platelets bldOrdered By: Lyubov Burgos on 03-14-2022 Platelets (Bld) [#/Vol] 201 10*3/uL 150-450 [facility] Absolute lymphocyte countOrd ered By: Renard Burgos on 2022 Lymphocytes Auto (Unsp spec) [#/Vol] 1.97 10*3/uL 0.83-4.51 [facility] Basophil percentageOrdered B y: Renard Burgos on 2022 Basophils/100 WBC (Bld) 0.6 % 0-1 [facility] Eosinophils/100 WBC (Bld) 0.4 % 0-5 [facility] Neutrophils (Bld) [#/Vol] 4.3 10*3/uL 2.0-7.7 [facility] Neutrophils/100 WBC (Bld) 61.3 % 47-70 [facility] WBC (Bld) [#/Vol] 7.0 10*3/uL 4.4-11.0 [facility] Blood erythrocytes count (nu mber/volume)Ordered By: Renard Burgos on 2022 RBC (Bld) [#/Vol] 4.78 10*6/uL 4.6-6.2 [facility] Blood hemoglobin measurement (mass/volume)Ordered By: Renard Burgos on 2022 Hemoglobin (Bld) [Mass/Vol] 14.4 g/dL 13.0-16.5 [facility] Blood lymphocytes/100 leukoc ytesOrdered By: Renard Burgos on 2022 Lymphocytes/100 WBC (Bld) 28.3 % 19-41 [facility] Blood monocytes/100 leukocyt esOrdered By: Renard Burgos on 2022 Monocytes/100 WBC (Bld) 9.1 % 0-10 [facility] Blood platelet mean volumeOr dered By: Renard Burgos on 2022 Platelet mean volume (Bld) [Entitic vol] 11.1 fL 6.2-12.0 [facility] Determination of erythrocyte mean corpuscular volume (MCV)Ordered By: Renard Burgos on 2022 MCV (RBC) [Entitic vol] 91.2 fL 80-94 [facility] Hematocrit Auto (Bld) [Volum e fraction]Ordered By: Renard Burgos on 2022 Hematocrit (Bld) [Volume fraction] 43.6 % 40-54 [facility] Laboratory - Hematology and Cell countsOrdered By: Renard Burgos on 2022 Erythrocyte distribution width (RBC) [Entitic vol] 42.0 fL 35.1-43.9 [facility] Erythrocyte distribution width (RBC) [Ratio] 12.6 % 11.6-14.6 [facility] Immature granulocytes/100 WBC (Bld) 0.300 % 0.0-0.9 [facility] Comment on above: IG% - Immature Granu locytes (promyelocytes, myelocytes and metamyelocytes) > 1% indicates that a LEFT SHIFT is Present. MCH (RBC) [Entitic mass] 30.1 pg 27.0-32.0 [facility] Nucleated RBC/100 WBC (Bld) [Ratio] 0 % 0-5 [facility] MCHC Auto (RBC) [Mass/Vol]Or dered By: Renard Burgos on 2022 MCHC (RBC) [Mass/Vol] 33.0 g/dL 32-36 [facility] Platelets bldOrdered By: Lyubov shirley Loretta on 2022 Platelets (Bld) [#/Vol] 210 10*3/uL 150-450 [facility] Absolute lymphocyte countOrd ered By: Renard Burgos on 02-28-2022 Lymphocytes Auto (Unsp spec) [#/Vol] 1.85 10*3/uL 0.83-4.51 [facility] Basophil percentageOrdered B y: Renard Burgos on 02-28-2022 Basophils/100 WBC (Bld) 0.4 % 0-1 [facility] Eosinophils/100 WBC (Bld) 0.4 % 0-5 [facility] Neutrophils (Bld) [#/Vol] 5.3 10*3/uL 2.0-7.7 [facility] Neutrophils/100 WBC (Bld) 67.8 % 47-70 [facility] WBC (Bld) [#/Vol] 7.8 10*3/uL 4.4-11.0 [facility] Blood erythrocytes count (nu mber/volume)Ordered By: Renard Burgos on 02-28-2022 RBC (Bld) [#/Vol] 4.58 10*6/uL 4.6-6.2 [facility] Blood hemoglobin measurement (mass/volume)Ordered By: Renard Burgos on 02-28-2022 Hemoglobin (Bld) [Mass/Vol] 14.3 g/dL 13.0-16.5 [facility] Blood lymphocytes/100 leukoc ytesOrdered By: Renard Burgos on 02-28-2022 Lymphocytes/100 WBC (Bld) 23.8 % 19-41 [facility] Blood monocytes/100 leukocyt esOrdered By: Renard Burgos on 02-28-2022 Monocytes/100 WBC (Bld) 7.2 % 0-10 [facility] Blood platelet mean volumeOr dered By: Renard Burgos on 02-28-2022 Platelet mean volume (Bld) [Entitic vol] 10.8 fL 6.2-12.0 [facility] Determination of erythrocyte mean corpuscular volume (MCV)Ordered By: Renard Burgos on 02-28-2022 MCV (RBC) [Entitic vol] 91.5 fL 80-94 [facility] Hematocrit Auto (Bld) [Volum e fraction]Ordered By: Renard Burgos on 02-28-2022 Hematocrit (Bld) [Volume fraction] 41.9 % 40-54 [facility] Laboratory - Hematology and Cell countsOrdered By: Renard Burgos on 02-28-2022 Erythrocyte distribution width (RBC) [Entitic vol] 42.2 fL 35.1-43.9 [facility] Erythrocyte distribution width (RBC) [Ratio] 12.7 % 11.6-14.6 [facility] Immature granulocytes/100 WBC (Bld) 0.400 % 0.0-0.9 [facility] Comment on above: IG% - Immature Granu locytes (promyelocytes, myelocytes and metamyelocytes) > 1% indicates that a LEFT SHIFT is Present. MCH (RBC) [Entitic mass] 31.2 pg 27.0-32.0 [facility] Nucleated RBC/100 WBC (Bld) [Ratio] 0 % 0-5 [facility] MCHC Auto (RBC) [Mass/Vol]Or dered By: Renard Burgos on 02-28-2022 MCHC (RBC) [Mass/Vol] 34.1 g/dL 32-36 [facility] Platelets bldOrdered By: Lyubov Burgos on 02-28-2022 Platelets (Bld) [#/Vol] 202 10*3/uL 150-450 [facility] Absolute lymphocyte countOrd ered By: Renard Burgos on 02-21-2022 Lymphocytes Auto (Unsp spec) [#/Vol] 1.93 10*3/uL 0.83-4.51 [facility] Basophil percentageOrdered B y: Renard Burgos on 02-21-2022 Basophils/100 WBC (Bld) 0.4 % 0-1 [facility] Eosinophils/100 WBC (Bld) 0.4 % 0-5 [facility] Neutrophils (Bld) [#/Vol] 4.6 10*3/uL 2.0-7.7 [facility] Neutrophils/100 WBC (Bld) 63.4 % 47-70 [facility] WBC (Bld) [#/Vol] 7.2 10*3/uL 4.4-11.0 [facility] Blood erythrocytes count (nu mber/volume)Ordered By: Renard Burgos on 02-21-2022 RBC (Bld) [#/Vol] 4.54 10*6/uL 4.6-6.2 [facility] Blood hemoglobin measurement (mass/volume)Ordered By: Renard Burgos on 02-21-2022 Hemoglobin (Bld) [Mass/Vol] 14.1 g/dL 13.0-16.5 [facility] Blood lymphocytes/100 leukoc ytesOrdered By: Renard Burgos on 02-21-2022 Lymphocytes/100 WBC (Bld) 26.7 % 19-41 [facility] Blood monocytes/100 leukocyt esOrdered By: Renard Burgos on 02-21-2022 Monocytes/100 WBC (Bld) 8.8 % 0-10 [facility] Blood platelet mean volumeOr dered By: Renard Burgos on 02-21-2022 Platelet mean volume (Bld) [Entitic vol] 11.1 fL 6.2-12.0 [facility] Determination of erythrocyte mean corpuscular volume (MCV)Ordered By: Renard Burgos on 02-21-2022 MCV (RBC) [Entitic vol] 91.4 fL 80-94 [facility] Hematocrit Auto (Bld) [Volum e fraction]Ordered By: Renard Burgos on 02-21-2022 Hematocrit (Bld) [Volume fraction] 41.5 % 40-54 [facility] Laboratory - Hematology and Cell countsOrdered By: Renard Burgos on 02-21-2022 Erythrocyte distribution width (RBC) [Entitic vol] 41.9 fL 35.1-43.9 [facility] Erythrocyte distribution width (RBC) [Ratio] 12.6 % 11.6-14.6 [facility] Immature granulocytes/100 WBC (Bld) 0.300 % 0.0-0.9 [facility] Comment on above: IG% - Immature Granu locytes (promyelocytes, myelocytes and metamyelocytes) > 1% indicates that a LEFT SHIFT is Present. MCH (RBC) [Entitic mass] 31.1 pg 27.0-32.0 [facility] Nucleated RBC/100 WBC (Bld) [Ratio] 0 % 0-5 [facility] MCHC Auto (RBC) [Mass/Vol]Or dered By: Renard Burgos on 02-21-2022 MCHC (RBC) [Mass/Vol] 34.0 g/dL 32-36 [facility] Platelets bldOrdered By: Lyubov Burgos on 02-21-2022 Platelets (Bld) [#/Vol] 189 10*3/uL 150-450 [facility] Absolute lymphocyte countOrd ered By: Renard Burgos on 02-14-2022 Lymphocytes Auto (Unsp spec) [#/Vol] 2.00 10*3/uL 0.83-4.51 [facility] Basophil percentageOrdered B y: Renard Burgos on 02-14-2022 Basophils/100 WBC (Bld) 0.6 % 0-1 [facility] Eosinophils/100 WBC (Bld) 0.3 % 0-5 [facility] Neutrophils (Bld) [#/Vol] 6.4 10*3/uL 2.0-7.7 [facility] Neutrophils/100 WBC (Bld) 69.5 % 47-70 [facility] WBC (Bld) [#/Vol] 9.3 10*3/uL 4.4-11.0 [facility] Blood erythrocytes count (nu mber/volume)Ordered By: Renard Burgos on 02-14-2022 RBC (Bld) [#/Vol] 4.65 10*6/uL 4.6-6.2 [facility] Blood hemoglobin measurement (mass/volume)Ordered By: Renard Burgos on 02-14-2022 Hemoglobin (Bld) [Mass/Vol] 14.6 g/dL 13.0-16.5 [facility] Blood lymphocytes/100 leukoc ytesOrdered By: Renard Burgos on 02-14-2022 Lymphocytes/100 WBC (Bld) 21.6 % 19-41 [facility] Blood monocytes/100 leukocyt esOrdered By: Renard Burgos on 02-14-2022 Monocytes/100 WBC (Bld) 7.6 % 0-10 [facility] Blood platelet mean volumeOr dered By: Renard Burgos on 02-14-2022 Platelet mean volume (Bld) [Entitic vol] 11.1 fL 6.2-12.0 [facility] Determination of erythrocyte mean corpuscular volume (MCV)Ordered By: Renard Burgos on 02-14-2022 MCV (RBC) [Entitic vol] 91.8 fL 80-94 [facility] Hematocrit Auto (Bld) [Volum e fraction]Ordered By: Renard Burgos on 02-14-2022 Hematocrit (Bld) [Volume fraction] 42.7 % 40-54 [facility] Laboratory - Hematology and Cell countsOrdered By: Renard Burgos on 02-14-2022 Erythrocyte distribution width (RBC) [Entitic vol] 43.7 fL 35.1-43.9 [facility] Erythrocyte distribution width (RBC) [Ratio] 13.0 % 11.6-14.6 [facility] Immature granulocytes/100 WBC (Bld) 0.400 % 0.0-0.9 [facility] Comment on above: IG% - Immature Granu locytes (promyelocytes, myelocytes and metamyelocytes) > 1% indicates that a LEFT SHIFT is Present. MCH (RBC) [Entitic mass] 31.4 pg 27.0-32.0 [facility] Nucleated RBC/100 WBC (Bld) [Ratio] 0 % 0-5 [facility] MCHC Auto (RBC) [Mass/Vol]Or dered By: Renard Burgos on 02-14-2022 MCHC (RBC) [Mass/Vol] 34.2 g/dL 32-36 [facility] Platelets bldOrdered By: Lyubov Burgos on 02-14-2022 Platelets (Bld) [#/Vol] 187 10*3/uL 150-450 [facility] Absolute lymphocyte countOrd ered By: Renard Burgos on 02-07-2022 Lymphocytes Auto (Unsp spec) [#/Vol] 1.97 10*3/uL 0.83-4.51 [facility] Basophil percentageOrdered B y: Renard Burgos on 02-07-2022 Basophils/100 WBC (Bld) 0.4 % 0-1 [facility] Eosinophils/100 WBC (Bld) 0.3 % 0-5 [facility] Neutrophils (Bld) [#/Vol] 4.2 10*3/uL 2.0-7.7 [facility] Neutrophils/100 WBC (Bld) 61.8 % 47-70 [facility] WBC (Bld) [#/Vol] 6.8 10*3/uL 4.4-11.0 [facility] Blood erythrocytes count (nu mber/volume)Ordered By: Renard Burgos on 02-07-2022 RBC (Bld) [#/Vol] 4.86 10*6/uL 4.6-6.2 [facility] Blood hemoglobin measurement (mass/volume)Ordered By: Renard Burgos on 02-07-2022 Hemoglobin (Bld) [Mass/Vol] 15.4 g/dL 13.0-16.5 [facility] Blood lymphocytes/100 leukoc ytesOrdered By: Renard Burgos on 02-07-2022 Lymphocytes/100 WBC (Bld) 29.1 % 19-41 [facility] Blood monocytes/100 leukocyt esOrdered By: Renard Burgos on 02-07-2022 Monocytes/100 WBC (Bld) 8.1 % 0-10 [facility] Blood platelet mean volumeOr dered By: Renard Burgos on 02-07-2022 Platelet mean volume (Bld) [Entitic vol] 11.0 fL 6.2-12.0 [facility] Determination of erythrocyte mean corpuscular volume (MCV)Ordered By: Renard Burgos on 02-07-2022 MCV (RBC) [Entitic vol] 92.6 fL 80-94 [facility] Hematocrit Auto (Bld) [Volum e fraction]Ordered By: Renard Burgos on 02-07-2022 Hematocrit (Bld) [Volume fraction] 45.0 % 40-54 [facility] Laboratory - Hematology and Cell countsOrdered By: Renard Burgos on 02-07-2022 Erythrocyte distribution width (RBC) [Entitic vol] 43.1 fL 35.1-43.9 [facility] Erythrocyte distribution width (RBC) [Ratio] 12.7 % 11.6-14.6 [facility] Immature granulocytes/100 WBC (Bld) 0.300 % 0.0-0.9 [facility] Comment on above: IG% - Immature Granu locytes (promyelocytes, myelocytes and metamyelocytes) > 1% indicates that a LEFT SHIFT is Present. MCH (RBC) [Entitic mass] 31.7 pg 27.0-32.0 [facility] Nucleated RBC/100 WBC (Bld) [Ratio] 0 % 0-5 [facility] MCHC Auto (RBC) [Mass/Vol]Or dered By: Renard Burgos on 02-07-2022 MCHC (RBC) [Mass/Vol] 34.2 g/dL 32-36 [facility] Platelets bldOrdered By: Pet shirley Burgos on 02-07-2022 Platelets (Bld) [#/Vol] 196 10*3/uL 150-450 [facility] Absolute lymphocyte countOrd ered By: Renard Burgos on 01-31-2022 Lymphocytes Auto (Unsp spec) [#/Vol] 2.19 10*3/uL 0.83-4.51 [facility] Basophil percentageOrdered B y: Renard Burgos on 01-31-2022 Basophils/100 WBC (Bld) 0.3 % 0-1 [facility] Eosinophils/100 WBC (Bld) 0.2 % 0-5 [facility] Neutrophils (Bld) [#/Vol] 5.7 10*3/uL 2.0-7.7 [facility] Neutrophils/100 WBC (Bld) 64.9 % 47-70 [facility] WBC (Bld) [#/Vol] 8.8 10*3/uL 4.4-11.0 [facility] Blood erythrocytes count (nu mber/volume)Ordered By: Renard Burgos on 01-31-2022 RBC (Bld) [#/Vol] 4.81 10*6/uL 4.6-6.2 [facility] Blood hemoglobin measurement (mass/volume)Ordered By: Renard Burgos on 01-31-2022 Hemoglobin (Bld) [Mass/Vol] 14.9 g/dL 13.0-16.5 [facility] Blood lymphocytes/100 leukoc ytesOrdered By: Renard Burgos on 01-31-2022 Lymphocytes/100 WBC (Bld) 24.9 % 19-41 [facility] Blood monocytes/100 leukocyt esOrdered By: Renard Burgos on 01-31-2022 Monocytes/100 WBC (Bld) 9.2 % 0-10 [facility] Blood platelet mean volumeOr dered By: Renard Burgos on 01-31-2022 Platelet mean volume (Bld) [Entitic vol] 11.0 fL 6.2-12.0 [facility] Determination of erythrocyte mean corpuscular volume (MCV)Ordered By: Renard Burgos on 01-31-2022 MCV (RBC) [Entitic vol] 92.9 fL 80-94 [facility] Hematocrit Auto (Bld) [Volum e fraction]Ordered By: Renard Burgos on 01-31-2022 Hematocrit (Bld) [Volume fraction] 44.7 % 40-54 [facility] Laboratory - Hematology and Cell countsOrdered By: Renard Burgos on 01-31-2022 Erythrocyte distribution width (RBC) [Entitic vol] 42.9 fL 35.1-43.9 [facility] Erythrocyte distribution width (RBC) [Ratio] 12.6 % 11.6-14.6 [facility] Immature granulocytes/100 WBC (Bld) 0.500 % 0.0-0.9 [facility] Comment on above: IG% - Immature Granu locytes (promyelocytes, myelocytes and metamyelocytes) > 1% indicates that a LEFT SHIFT is Present. MCH (RBC) [Entitic mass] 31.0 pg 27.0-32.0 [facility] Nucleated RBC/100 WBC (Bld) [Ratio] 0 % 0-5 [facility] MCHC Auto (RBC) [Mass/Vol]Or dered By: Renard Burgos on 01-31-2022 MCHC (RBC) [Mass/Vol] 33.3 g/dL 32-36 [facility] Platelets bldOrdered By: Lyubov Burgos on 01-31-2022 Platelets (Bld) [#/Vol] 204 10*3/uL 150-450 [facility] Absolute lymphocyte countOrd ered By: Renard Burgos on 01-24-2022 Lymphocytes Auto (Unsp spec) [#/Vol] 1.82 10*3/uL 0.83-4.51 [facility] Basophil percentageOrdered B y: Renard Burgos on 01-24-2022 Basophils/100 WBC (Bld) 0.3 % 0-1 [facility] Eosinophils/100 WBC (Bld) 0.3 % 0-5 [facility] Neutrophils (Bld) [#/Vol] 6.1 10*3/uL 2.0-7.7 [facility] Neutrophils/100 WBC (Bld) 69.9 % 47-70 [facility] WBC (Bld) [#/Vol] 8.7 10*3/uL 4.4-11.0 [facility] Blood erythrocytes count (nu mber/volume)Ordered By: Renard Burgos on 01-24-2022 RBC (Bld) [#/Vol] 4.74 10*6/uL 4.6-6.2 [facility] Blood hemoglobin measurement (mass/volume)Ordered By: Renard Burgos on 01-24-2022 Hemoglobin (Bld) [Mass/Vol] 14.5 g/dL 13.0-16.5 [facility] Blood lymphocytes/100 leukoc ytesOrdered By: Renard Burgos on 01-24-2022 Lymphocytes/100 WBC (Bld) 20.9 % 19-41 [facility] Blood monocytes/100 leukocyt esOrdered By: Renard Burgos on 01-24-2022 Monocytes/100 WBC (Bld) 8.4 % 0-10 [facility] Blood platelet mean volumeOr dered By: Renard Burgos on 01-24-2022 Platelet mean volume (Bld) [Entitic vol] 10.9 fL 6.2-12.0 [facility] Determination of erythrocyte mean corpuscular volume (MCV)Ordered By: Renard Burgos on 01-24-2022 MCV (RBC) [Entitic vol] 92.0 fL 80-94 [facility] Hematocrit Auto (Bld) [Volum e fraction]Ordered By: Renard Burgos on 01-24-2022 Hematocrit (Bld) [Volume fraction] 43.6 % 40-54 [facility] Laboratory - Hematology and Cell countsOrdered By: Renard Burgos on 01-24-2022 Erythrocyte distribution width (RBC) [Entitic vol] 42.3 fL 35.1-43.9 [facility] Erythrocyte distribution width (RBC) [Ratio] 12.5 % 11.6-14.6 [facility] Immature granulocytes/100 WBC (Bld) 0.200 % 0.0-0.9 [facility] Comment on above: IG% - Immature Granu locytes (promyelocytes, myelocytes and metamyelocytes) > 1% indicates that a LEFT SHIFT is Present. MCH (RBC) [Entitic mass] 30.6 pg 27.0-32.0 [facility] Nucleated RBC/100 WBC (Bld) [Ratio] 0 % 0-5 [facility] MCHC Auto (RBC) [Mass/Vol]Or dered By: Renard Burgos on 01-24-2022 MCHC (RBC) [Mass/Vol] 33.3 g/dL 32-36 [facility] Platelets bldOrdered By: Lyubov Burgos on 01-24-2022 Platelets (Bld) [#/Vol] 192 10*3/uL 150-450 [facility] Absolute lymphocyte counton 01-17-2022 Lymphocytes Auto (Unsp spec) [#/Vol] 1.89 10*3/uL 0.83-4.51 [facility] Work Phone: Basophil percentageon 2021 Basophils/100 WBC (Bld) 0.4 % 0-1 [facility] Work Phone: Eosinophils/100 WBC (Bld) 0.3 % 0-5 [facility] Work Phone: Neutrophils (Bld) [#/Vol] 4.4 10*3/uL 2.0-7.7 [facility] Work Phone: Neutrophils/100 WBC (Bld) 62.4 % 47-70 [facility] Work Phone: WBC (Bld) [#/Vol] 7.0 10*3/uL 4.4-11.0 [facility] Work Phone: Blood erythrocytes count (nu mber/volume)on 01-17-2022 RBC (Bld) [#/Vol] 4.64 10*6/uL 4.6-6.2 [facility] Work Phone: Blood hemoglobin measurement (mass/volume)on 01-17-2022 Hemoglobin (Bld) [Mass/Vol] 14.1 g/dL 13.0-16.5 [facility] Work Phone: Blood lymphocytes/100 leukoc yteson 01-17-2022 Lymphocytes/100 WBC (Bld) 27.0 % 19-41 [facility] Work Phone: Blood monocytes/100 leukocyt eson 01-17-2022 Monocytes/100 WBC (Bld) 9.3 % 0-10 [facility] Work Phone: Blood platelet mean volumeon 01-17-2022 Platelet mean volume (Bld) [Entitic vol] 11.1 fL 6.2-12.0 [facility] Work Phone: Determination of erythrocyte mean corpuscular volume (MCV)on 01-17-2022 MCV (RBC) [Entitic vol] 91.8 fL 80-94 [facility] Work Phone: Hematocrit Auto (Bld) [Volum e fraction]on 01-17-2022 Hematocrit (Bld) [Volume fraction] 42.6 % 40-54 [facility] Work Phone: Laboratory - Hematology and Cell countson 01-17-2022 Erythrocyte distribution width (RBC) [Entitic vol] 41.5 fL 35.1-43.9 [facility] Work Phone: Erythrocyte distribution width (RBC) [Ratio] 12.5 % 11.6-14.6 [facility] Work Phone: Immature granulocytes/100 WBC (Bld) 0.600 % 0.0-0.9 [facility] Work Phone: Comment on above: IG% - Immature Granu locytes (promyelocytes, myelocytes and metamyelocytes) > 1% indicates that a LEFT SHIFT is Present. MCH (RBC) [Entitic mass] 30.4 pg 27.0-32.0 [facility] Work Phone: Nucleated RBC/100 WBC (Bld) [Ratio] 0 % 0-5 [facility] Work Phone: MCHC Auto (RBC) [Mass/Vol]on 01-17-2022 MCHC (RBC) [Mass/Vol] 33.1 g/dL 32-36 [facility] Work Phone: Platelets bldon 01-17-2022 Platelets (Bld) [#/Vol] 200 10*3/uL 150-450 [facility] Work Phone: Absolute lymphocyte counton 01-10-2022 Lymphocytes Auto (Unsp spec) [#/Vol] 2.07 10*3/uL 0.83-4.51 [facility] Work Phone: Basophil percentageon 2021 Basophils/100 WBC (Bld) 0.6 % 0-1 [facility] Work Phone: Eosinophils/100 WBC (Bld) 0.3 % 0-5 [facility] Work Phone: Neutrophils (Bld) [#/Vol] 4.2 10*3/uL 2.0-7.7 [facility] Work Phone: Neutrophils/100 WBC (Bld) 59.2 % 47-70 [facility] Work Phone: WBC (Bld) [#/Vol] 7.0 10*3/uL 4.4-11.0 [facility] Work Phone: Blood erythrocytes count (nu mber/volume)on 01-10-2022 RBC (Bld) [#/Vol] 4.83 10*6/uL 4.6-6.2 [facility] Work Phone: Blood hemoglobin measurement (mass/volume)on 01-10-2022 Hemoglobin (Bld) [Mass/Vol] 14.8 g/dL 13.0-16.5 [facility] Work Phone: Blood lymphocytes/100 leukoc yteson 01-10-2022 Lymphocytes/100 WBC (Bld) 29.5 % 19-41 [facility] Work Phone: Blood monocytes/100 leukocyt eson 01-10-2022 Monocytes/100 WBC (Bld) 10.1 % 0-10 [facility] Work Phone: Blood platelet mean volumeon 01-10-2022 Platelet mean volume (Bld) [Entitic vol] 10.8 fL 6.2-12.0 [facility] Work Phone: Determination of erythrocyte mean corpuscular volume (MCV)on 01-10-2022 MCV (RBC) [Entitic vol] 97.5 fL 80-94 [facility] Work Phone: Hematocrit Auto (Bld) [Volum e fraction]on 01-10-2022 Hematocrit (Bld) [Volume fraction] 47.1 % 40-54 [facility] Work Phone: Laboratory - Hematology and Cell countson 01-10-2022 Erythrocyte distribution width (RBC) [Entitic vol] 44.9 fL 35.1-43.9 [facility] Work Phone: Erythrocyte distribution width (RBC) [Ratio] 12.7 % 11.6-14.6 [facility] Work Phone: Immature granulocytes/100 WBC (Bld) 0.300 % 0.0-0.9 [facility] Work Phone: Comment on above: IG% - Immature Granu locytes (promyelocytes, myelocytes and metamyelocytes) > 1% indicates that a LEFT SHIFT is Present. MCH (RBC) [Entitic mass] 30.6 pg 27.0-32.0 [facility] Work Phone: Nucleated RBC/100 WBC (Bld) [Ratio] 0 % 0-5 [facility] Work Phone: MCHC Auto (RBC) [Mass/Vol]on 01-10-2022 MCHC (RBC) [Mass/Vol] 31.4 g/dL 32-36 [facility] Work Phone: Platelets bldon 01-10-2022 Platelets (Bld) [#/Vol] 169 10*3/uL 150-450 [facility] Work Phone: Absolute lymphocyte counton 01-04-2022 Lymphocytes Auto (Unsp spec) [#/Vol] 1.84 10*3/uL 0.83-4.51 [facility] Work Phone: Basophil percentageon 2021 Basophils/100 WBC (Bld) 0.3 % 0-1 [facility] Work Phone: [phone] Eosinophils/100 WBC (Bld) 0.3 % 0-5 [facility] Work Phone: [phone] Neutrophils (Bld) [#/Vol] 4.8 10*3/uL 2.0-7.7 [facility] Work Phone: Neutrophils/100 WBC (Bld) 64.8 % 47-70 [facility] Work Phone: WBC (Bld) [#/Vol] 7.4 10*3/uL 4.4-11.0 [facility] Work Phone: Blood erythrocytes count (nu mber/volume)on 01-04-2022 RBC (Bld) [#/Vol] 4.67 10*6/uL 4.6-6.2 [facility] Work [facility]: Blood hemoglobin measurement (mass/volume)on 01-04-2022 Hemoglobin (Bld) [Mass/Vol] 14.2 g/dL 13.0-16.5 [facility] Work Phone: [phone] Blood lymphocytes/100 leukoc yteson 01-04-2022 Lymphocytes/100 WBC (Bld) 25.0 % 19-41 [facility] Work Phone: [phone] Blood monocytes/100 leukocyt eson 01-04-2022 Monocytes/100 WBC (Bld) 9.1 % 0-10 [facility] Work Phone: Blood platelet mean volumeon 01-04-2022 Platelet mean volume (Bld) [Entitic vol] 11.0 fL 6.2-12.0 [facility] Work Phone: Determination of erythrocyte mean corpuscular volume (MCV)on 01-04-2022 MCV (RBC) [Entitic vol] 91.0 fL 80-94 [facility] Work Phone: Hematocrit Auto (Bld) [Volum e fraction]on 01-04-2022 Hematocrit (Bld) [Volume fraction] 42.5 % 40-54 [facility] Work Phone: Laboratory - Hematology and Cell countson 01-04-2022 Erythrocyte distribution width (RBC) [Entitic vol] 41.4 fL 35.1-43.9 [facility] Work Phone: Erythrocyte distribution width (RBC) [Ratio] 12.7 % 11.6-14.6 [facility] Work Phone: Immature granulocytes/100 WBC (Bld) 0.500 % 0.0-0.9 [facility] Work Phone: Comment on above: IG% - Immature Granu locytes (promyelocytes, myelocytes and metamyelocytes) > 1% indicates that a LEFT SHIFT is Present. MCH (RBC) [Entitic mass] 30.4 pg 27.0-32.0 [facility] Work Phone: Nucleated RBC/100 WBC (Bld) [Ratio] 0 % 0-5 [facility] Work Phone: MCHC Auto (RBC) [Mass/Vol]on 01-04-2022 MCHC (RBC) [Mass/Vol] 33.4 g/dL 32-36 [facility] Work Phone: Platelets bldon 01-04-2022 Platelets (Bld) [#/Vol] 184 10*3/uL 150-450 [facility] Work Phone: Absolute lymphocyte counton 12-27-2021 Lymphocytes Auto (Unsp spec) [#/Vol] 1.79 10*3/uL 0.83-4.51 [facility] Work Phone: Basophil percentageon 2021 Basophils/100 WBC (Bld) 0.4 % 0-1 [facility] Work Phone: Eosinophils/100 WBC (Bld) 0.4 % 0-5 [facility] Work Phone: Neutrophils (Bld) [#/Vol] 4.9 10*3/uL 2.0-7.7 [facility] Work Phone: Neutrophils/100 WBC (Bld) 65.2 % 47-70 [facility] Work Phone: WBC (Bld) [#/Vol] 7.6 10*3/uL 4.4-11.0 [facility]: Blood erythrocytes count (nu mber/volume)on 12-27-2021 RBC (Bld) [#/Vol] 4.66 10*6/uL 4.6-6.2 [facility] Work Phone: Blood hemoglobin measurement (mass/volume)on 12-27-2021 Hemoglobin (Bld) [Mass/Vol] 14.5 g/dL 13.0-16.5 [facility] Work Phone: Blood lymphocytes/100 leukoc yteson 12-27-2021 Lymphocytes/100 WBC (Bld) 23.6 % 19-41 [facility] Work Phone: Blood monocytes/100 leukocyt eson 12-27-2021 Monocytes/100 WBC (Bld) 10.0 % 0-10 [facility] Work Phone: [phone] Blood platelet mean volumeon 12-27-2021 Platelet mean volume (Bld) [Entitic vol] 10.9 fL 6.2-12.0 [facility] Work Phone: [phone] Determination of erythrocyte mean corpuscular volume (MCV)on 12-27-2021 MCV (RBC) [Entitic vol] 91.0 fL 80-94 [facility] Work Phone: Hematocrit Auto (Bld) [Volum e fraction]on 12-27-2021 Hematocrit (Bld) [Volume fraction] 42.4 % 40-54 [facility] Work Phone: Laboratory - Hematology and Cell countson 12-27-2021 Erythrocyte distribution width (RBC) [Entitic vol] 41.2 fL 35.1-43.9 [facility] Work Phone: Erythrocyte distribution width (RBC) [Ratio] 12.6 % 11.6-14.6 [facility] Work Phone: Immature granulocytes/100 WBC (Bld) 0.400 % 0.0-0.9 [facility] Work Phone: Comment on above: IG% - Immature Granu locytes (promyelocytes, myelocytes and metamyelocytes) > 1% indicates that a LEFT SHIFT is Present. MCH (RBC) [Entitic mass] 31.1 pg 27.0-32.0 [facility] Work Phone: Nucleated RBC/100 WBC (Bld) [Ratio] 0 % 0-5 [facility] Work Phone: MCHC Auto (RBC) [Mass/Vol]on 12-27-2021 MCHC (RBC) [Mass/Vol] 34.2 g/dL 32-36 [facility] Work Phone: Platelets bldon 12-27-2021 Platelets (Bld) [#/Vol] 185 10*3/uL 150-450 [facility] Work Phone: Absolute lymphocyte counton 12-20-2021 Lymphocytes Auto (Unsp spec) [#/Vol] 2.02 10*3/uL 0.83-4.51 [facility] Work Phone: Basophil percentageon 2021 Basophils/100 WBC (Bld) 0.2 % 0-1 [facility] Work Phone: Eosinophils/100 WBC (Bld) 0.3 % 0-5 [facility] Work Phone: Neutrophils (Bld) [#/Vol] 3.6 10*3/uL 2.0-7.7 [facility] Work Phone: Neutrophils/100 WBC (Bld) 57.8 % 47-70 [facility] Work Phone: WBC (Bld) [#/Vol] 6.1 10*3/uL 4.4-11.0 [facility]: Blood erythrocytes count (nu mber/volume)on 12-20-2021 RBC (Bld) [#/Vol] 4.81 10*6/uL 4.6-6.2 [facility] Work Phone: Blood hemoglobin measurement (mass/volume)on 12-20-2021 Hemoglobin (Bld) [Mass/Vol] 14.8 g/dL 13.0-16.5 [facility] Work Phone: Blood lymphocytes/100 leukoc yteson 12-20-2021 Lymphocytes/100 WBC (Bld) 32.9 % 19-41 [facility] Work Phone: Blood monocytes/100 leukocyt eson 12-20-2021 Monocytes/100 WBC (Bld) 8.3 % 0-10 [facility] Work Phone: Blood platelet adequacy dete ction by light microscopyon 12-20-2021 Platelets LM Ql (Bld) ADEQUATE ADEQ [facility] Work Phone: Blood platelet mean volumeon 12-20-2021 Platelet mean volume (Bld) [Entitic vol] 11.1 fL 6.2-12.0 [facility] Work Phone: Determination of erythrocyte mean corpuscular volume (MCV)on 12-20-2021 MCV (RBC) [Entitic vol] 93.1 fL 80-94 [facility] Work Phone: Hematocrit Auto (Bld) [Volum e fraction]on 12-20-2021 Hematocrit (Bld) [Volume fraction] 44.8 % 40-54 [facility] Work Phone: Laboratory - Hematology and Cell countson 12-20-2021 Erythrocyte distribution width (RBC) [Entitic vol] 42.4 fL 35.1-43.9 [facility] Work Phone: Erythrocyte distribution width (RBC) [Ratio] 12.4 % 11.6-14.6 [facility] Work Phone: Immature granulocytes/100 WBC (Bld) 0.500 % 0.0-0.9 [facility] Work Phone: Comment on above: IG% - Immature Granu locytes (promyelocytes, myelocytes and metamyelocytes) > 1% indicates that a LEFT SHIFT is Present. MCH (RBC) [Entitic mass] 30.8 pg 27.0-32.0 [facility] Work Phone: Nucleated RBC/100 WBC (Bld) [Ratio] 0 % 0-5 [facility] Work Phone: MCHC Auto (RBC) [Mass/Vol]on 12-20-2021 MCHC (RBC) [Mass/Vol] 33.0 g/dL 32-36 [facility] Work Phone: Platelets bldon 12-20-2021 Platelets (Bld) [#/Vol] See comment 150-450 [facility] Work Phone: Comment on above: Please note: [...] Auto (Unsp spec) [#/Vol] 1.88 10*3/uL 0.83-4.51 [facility] Work Phone: Basophil percentageon 2021 Basophils/100 WBC (Bld) 0.6 % 0-1 [facility] Work Phone: Eosinophils/100 WBC (Bld) 0.3 % 0-5 [facility] Work Phone: Neutrophils (Bld) [#/Vol] 4.5 10*3/uL 2.0-7.7 [facility] Work Phone: Neutrophils/100 WBC (Bld) 63.6 % 47-70 [facility] Work Phone: WBC (Bld) [#/Vol] 7.1 10*3/uL 4.4-11.0 [facility] Work [facility]: Blood erythrocytes count (nu mber/volume)on 12-13-2021 RBC (Bld) [#/Vol] 4.70 10*6/uL 4.6-6.2 [facility] Work Phone: Blood hemoglobin measurement (mass/volume)on 12-13-2021 Hemoglobin (Bld) [Mass/Vol] 14.4 g/dL 13.0-16.5 [facility] Work Phone: Blood lymphocytes/100 leukoc yteson 12-13-2021 Lymphocytes/100 WBC (Bld) 26.7 % 19-41 [facility] Work Phone: Blood monocytes/100 leukocyt eson 12-13-2021 Monocytes/100 WBC (Bld) 8.5 % 0-10 [facility] Work Phone: Blood platelet mean volumeon 12-13-2021 Platelet mean volume (Bld) [Entitic vol] 10.9 fL 6.2-12.0 [facility] Work Phone: Determination of erythrocyte mean corpuscular volume (MCV)on 12-13-2021 MCV (RBC) [Entitic vol] 90.9 fL 80-94 [facility] Work Phone: Hematocrit Auto (Bld) [Volum e fraction]on 12-13-2021 Hematocrit (Bld) [Volume fraction] 42.7 % 40-54 [facility] Work Phone: [phone] Laboratory - Hematology and Cell countson 12-13-2021 Erythrocyte distribution width (RBC) [Entitic vol] 42.1 fL 35.1-43.9 [facility] Work Phone: [phone] Erythrocyte distribution width (RBC) [Ratio] 12.6 % 11.6-14.6 [facility] Work Phone: [phone] Immature granulocytes/100 WBC (Bld) 0.300 % 0.0-0.9 [facility] Work Phone: Comment on above: IG% - Immature Granu locytes (promyelocytes, myelocytes and metamyelocytes) > 1% indicates that a LEFT SHIFT is Present. MCH (RBC) [Entitic mass] 30.6 pg 27.0-32.0 [facility] Work Phone: [phone] Nucleated RBC/100 WBC (Bld) [Ratio] 0 % 0-5 [facility] Work Phone: [phone] MCHC Auto (RBC) [Mass/Vol]on 12-13-2021 MCHC (RBC) [Mass/Vol] 33.7 g/dL 32-36 [facility] Work Phone: [phone] Platelets bldon 12-13-2021 Platelets (Bld) [#/Vol] 194 10*3/uL 150-450 [facility] Work Phone: [phone] Absolute lymphocyte counton 12-06-2021 Lymphocytes Auto (Unsp spec) [#/Vol] 1.91 10*3/uL 0.83-4.51 [facility] Work Phone: Basophil percentageon 2021 Basophils/100 WBC (Bld) 0.4 % 0-1 [facility] Work Phone: Eosinophils/100 WBC (Bld) 0.3 % 0-5 [facility] Work Phone: Neutrophils (Bld) [#/Vol] 4.4 10*3/uL 2.0-7.7 [facility] Work Phone: Neutrophils/100 WBC (Bld) 62.2 % 47-70 [facility] Work Phone: WBC (Bld) [#/Vol] 7.0 10*3/uL 4.4-11.0 [facility] Work Phone: Blood erythrocytes count (nu mber/volume)on 12-06-2021 RBC (Bld) [#/Vol] 4.58 10*6/uL 4.6-6.2 [facility] Work Phone: Blood hemoglobin measurement (mass/volume)on 12-06-2021 Hemoglobin (Bld) [Mass/Vol] 13.8 g/dL 13.0-16.5 [facility] Work Phone: Blood lymphocytes/100 leukoc yteson 12-06-2021 Lymphocytes/100 WBC (Bld) 27.2 % 19-41 [facility] Work Phone: Blood monocytes/100 leukocyt eson 12-06-2021 Monocytes/100 WBC (Bld) 9.6 % 0-10 [facility] Work Phone: Blood platelet mean volumeon 12-06-2021 Platelet mean volume (Bld) [Entitic vol] 11.1 fL 6.2-12.0 [facility] Work Phone: Determination of erythrocyte mean corpuscular volume (MCV)on 12-06-2021 MCV (RBC) [Entitic vol] 92.1 fL 80-94 [facility] Work Phone: Hematocrit Auto (Bld) [Volum e fraction]on 12-06-2021 Hematocrit (Bld) [Volume fraction] 42.2 % 40-54 [facility] Work Phone: Laboratory - Hematology and Cell countson 12-06-2021 Erythrocyte distribution width (RBC) [Entitic vol] 42.1 fL 35.1-43.9 [facility] Work Phone: Erythrocyte distribution width (RBC) [Ratio] 12.6 % 11.6-14.6 [facility] Work Phone: Immature granulocytes/100 WBC (Bld) 0.300 % 0.0-0.9 [facility] Work Phone: Comment on above: IG% - Immature Granu locytes (promyelocytes, myelocytes and metamyelocytes) > 1% indicates that a LEFT SHIFT is Present. MCH (RBC) [Entitic mass] 30.1 pg 27.0-32.0 [facility] Work Phone: Nucleated RBC/100 WBC (Bld) [Ratio] 0 % 0-5 [facility] Work Phone: MCHC Auto (RBC) [Mass/Vol]on 12-06-2021 MCHC (RBC) [Mass/Vol] 32.7 g/dL 32-36 [facility] Work Phone: Platelets bldon 12-06-2021 Platelets (Bld) [#/Vol] 180 10*3/uL 150-450 [facility] Work Phone: Absolute lymphocyte counton 11-29-2021 Lymphocytes Auto (Unsp spec) [#/Vol] 2.00 10*3/uL 0.83-4.51 [facility] Work Phone: [phone] Basophil percentageon 2021 Basophils/100 WBC (Bld) 0.4 % 0-1 [facility] Work Phone: Eosinophils/100 WBC (Bld) 0.3 % 0-5 [facility] Work Phone: Neutrophils (Bld) [#/Vol] 4.4 10*3/uL 2.0-7.7 [facility] Work Phone: Neutrophils/100 WBC (Bld) 62.8 % 47-70 [facility] Work Phone: WBC (Bld) [#/Vol] 7.0 10*3/uL 4.4-11.0 [facility]: Blood erythrocytes count (nu mber/volume)on 11-29-2021 RBC (Bld) [#/Vol] 4.72 10*6/uL 4.6-6.2 [facility] Work Phone: Blood hemoglobin measurement (mass/volume)on 11-29-2021 Hemoglobin (Bld) [Mass/Vol] 14.6 g/dL 13.0-16.5 [facility] Work Phone: Blood lymphocytes/100 leukoc yteson 11-29-2021 Lymphocytes/100 WBC (Bld) 28.6 % 19-41 [facility] Work Phone: Blood monocytes/100 leukocyt eson 11-29-2021 Monocytes/100 WBC (Bld) 7.6 % 0-10 [facility] Work Phone: Blood platelet mean volumeon 11-29-2021 Platelet mean volume (Bld) [Entitic vol] 11.1 fL 6.2-12.0 [facility] Work Phone: Determination of erythrocyte mean corpuscular volume (MCV)on 11-29-2021 MCV (RBC) [Entitic vol] 91.9 fL 80-94 [facility] Work Phone: Hematocrit Auto (Bld) [Volum e fraction]on 11-29-2021 Hematocrit (Bld) [Volume fraction] 43.4 % 40-54 [facility] Work Phone: Laboratory - Hematology and Cell countson 11-29-2021 Erythrocyte distribution width (RBC) [Entitic vol] 41.8 fL 35.1-43.9 [facility] Work Phone: Erythrocyte distribution width (RBC) [Ratio] 12.4 % 11.6-14.6 [facility] Work Phone: Immature granulocytes/100 WBC (Bld) 0.300 % 0.0-0.9 [facility] Work Phone: Comment on above: IG% - Immature Granu locytes (promyelocytes, myelocytes and metamyelocytes) > 1% indicates that a LEFT SHIFT is Present. MCH (RBC) [Entitic mass] 30.9 pg 27.0-32.0 [facility] Work Phone: [phone] Nucleated RBC/100 WBC (Bld) [Ratio] 0 % 0-5 [facility] Work Phone: MCHC Auto (RBC) [Mass/Vol]on 11-29-2021 MCHC (RBC) [Mass/Vol] 33.6 g/dL 32-36 [facility] Work Phone: Platelets bldon 11-29-2021 Platelets (Bld) [#/Vol] 205 10*3/uL 150-450 [facility] Work Phone: Absolute lymphocyte counton 11-22-2021 Lymphocytes Auto (Unsp spec) [#/Vol] 2.25 10*3/uL 0.83-4.51 [facility] Work Phone: Basophil percentageon 2021 Basophils/100 WBC (Bld) 0.4 % 0-1 [facility] Work Phone: Eosinophils/100 WBC (Bld) 0.4 % 0-5 [facility] Work Phone: Neutrophils (Bld) [#/Vol] 5.1 10*3/uL 2.0-7.7 [facility] Work Phone: Neutrophils/100 WBC (Bld) 61.7 % 47-70 [facility] Work Phone: WBC (Bld) [#/Vol] 8.3 10*3/uL 4.4-11.0 [facility] Phone: [phone] Blood erythrocytes count (nu mber/volume)on 11-22-2021 RBC (Bld) [#/Vol] 4.47 10*6/uL 4.6-6.2 [facility] Work Phone: [phone] Blood hemoglobin measurement (mass/volume)on 11-22-2021 Hemoglobin (Bld) [Mass/Vol] 13.5 g/dL 13.0-16.5 [facility] Work Phone: Blood lymphocytes/100 leukoc yteson 11-22-2021 Lymphocytes/100 WBC (Bld) 27.2 % 19-41 [facility] Work Phone: Blood monocytes/100 leukocyt eson 11-22-2021 Monocytes/100 WBC (Bld) 9.9 % 0-10 [facility] Work Phone: Blood platelet mean volumeon 11-22-2021 Platelet mean volume (Bld) [Entitic vol] 11.1 fL 6.2-12.0 [facility] Work Phone: Determination of erythrocyte mean corpuscular volume (MCV)on 11-22-2021 MCV (RBC) [Entitic vol] 92.2 fL 80-94 [facility] Work Phone: Hematocrit Auto (Bld) [Volum e fraction]on 11-22-2021 Hematocrit (Bld) [Volume fraction] 41.2 % 40-54 [facility] Work Phone: Laboratory - Hematology and Cell countson 11-22-2021 Erythrocyte distribution width (RBC) [Entitic vol] 42.3 fL 35.1-43.9 [facility] Work Phone: Erythrocyte distribution width (RBC) [Ratio] 12.6 % 11.6-14.6 [facility] Work Phone: Immature granulocytes/100 WBC (Bld) 0.400 % 0.0-0.9 [facility] Work Phone: Comment on above: IG% - Immature Granu locytes (promyelocytes, myelocytes and metamyelocytes) > 1% indicates that a LEFT SHIFT is Present. MCH (RBC) [Entitic mass] 30.2 pg 27.0-32.0 [facility] Work Phone: Nucleated RBC/100 WBC (Bld) [Ratio] 0 % 0-5 [facility] Work Phone: MCHC Auto (RBC) [Mass/Vol]on 11-22-2021 MCHC (RBC) [Mass/Vol] 32.8 g/dL 32-36 [facility] Work Phone: Platelets bldon 11-22-2021 Platelets (Bld) [#/Vol] 190 10*3/uL 150-450 [facility] Work Phone: Absolute lymphocyte counton 11-15-2021 Lymphocytes Auto (Unsp spec) [#/Vol] 2.09 10*3/uL 0.83-4.51 [facility] Work [phone] Basophil percentageon 2021 Basophils/100 WBC (Bld) 0.6 % 0-1 [facility] Work Phone: Eosinophils/100 WBC (Bld) 0.4 % 0-5 [facility] Work Phone: Neutrophils (Bld) [#/Vol] 4.2 10*3/uL 2.0-7.7 [facility] Work Phone: Neutrophils/100 WBC (Bld) 59.1 % 47-70 [facility] Work Phone: WBC (Bld) [#/Vol] 7.1 10*3/uL 4.4-11.0 [facility] Work [facility]: Blood erythrocytes count (nu mber/volume)on 11-15-2021 RBC (Bld) [#/Vol] 4.72 10*6/uL 4.6-6.2 [facility] Work Phone: Blood hemoglobin measurement (mass/volume)on 11-15-2021 Hemoglobin (Bld) [Mass/Vol] 14.6 g/dL 13.0-16.5 [facility] Work Phone: Blood lymphocytes/100 leukoc yteson 11-15-2021 Lymphocytes/100 WBC (Bld) 29.4 % 19-41 [facility] Work Phone: [phone] Blood monocytes/100 leukocyt eson 11-15-2021 Monocytes/100 WBC (Bld) 10.1 % 0-10 [facility] Work Phone: Blood platelet mean volumeon 11-15-2021 Platelet mean volume (Bld) [Entitic vol] 10.7 fL 6.2-12.0 [facility] Work Phone: Determination of erythrocyte mean corpuscular volume (MCV)on 11-15-2021 MCV (RBC) [Entitic vol] 91.9 fL 80-94 [facility] Work Phone: Hematocrit Auto (Bld) [Volum e fraction]on 11-15-2021 Hematocrit (Bld) [Volume fraction] 43.4 % 40-54 [facility] Work Phone: Laboratory - Hematology and Cell countson 11-15-2021 Erythrocyte distribution width (RBC) [Entitic vol] 41.9 fL 35.1-43.9 [facility] Work Phone: Erythrocyte distribution width (RBC) [Ratio] 12.4 % 11.6-14.6 [facility] Work Phone: Immature granulocytes/100 WBC (Bld) 0.400 % 0.0-0.9 [facility] Work Phone: Comment on above: IG% - Immature Granu locytes (promyelocytes, myelocytes and metamyelocytes) > 1% indicates that a LEFT SHIFT is Present. MCH (RBC) [Entitic mass] 30.9 pg 27.0-32.0 [facility] Work Phone: Nucleated RBC/100 WBC (Bld) [Ratio] 0 % 0-5 [facility] Work Phone: MCHC Auto (RBC) [Mass/Vol]on 11-15-2021 MCHC (RBC) [Mass/Vol] 33.6 g/dL 32-36 [facility] Work Phone: Platelets bldon 11-15-2021 Platelets (Bld) [#/Vol] 191 10*3/uL 150-450 [facility] Work Phone: Absolute lymphocyte counton 11-08-2021 Lymphocytes Auto (Unsp spec) [#/Vol] 1.97 10*3/uL 0.83-4.51 [facility] Work Phone: [phone] Basophil percentageon 2021 Basophils/100 WBC (Bld) 0.3 % 0-1 [facility] Work Phone: Eosinophils/100 WBC (Bld) 0.3 % 0-5 [facility] Work Phone: [phone] Neutrophils (Bld) [#/Vol] 5.1 10*3/uL 2.0-7.7 [facility] Work Phone: [phone] Neutrophils/100 WBC (Bld) 64.6 % 47-70 [facility] Work Phone: [phone] WBC (Bld) [#/Vol] 7.8 10*3/uL 4.4-11.0 [facility] Work [facility]: Blood erythrocytes count (nu mber/volume)on 11-08-2021 RBC (Bld) [#/Vol] 4.53 10*6/uL 4.6-6.2 [facility] Work Phone: Blood hemoglobin measurement (mass/volume)on 11-08-2021 Hemoglobin (Bld) [Mass/Vol] 14.2 g/dL 13.0-16.5 [facility] Work Phone: [phone] Blood lymphocytes/100 leukoc yteson 11-08-2021 Lymphocytes/100 WBC (Bld) 25.2 % 19-41 [facility] Work Phone: [phone] Blood monocytes/100 leukocyt eson 11-08-2021 Monocytes/100 WBC (Bld) 9.3 % 0-10 [facility] Work Phone: Blood platelet mean volumeon 11-08-2021 Platelet mean volume (Bld) [Entitic vol] 10.9 fL 6.2-12.0 [facility] Work Phone: Determination of erythrocyte mean corpuscular volume (MCV)on 11-08-2021 MCV (RBC) [Entitic vol] 92.7 fL 80-94 [facility] Work Phone: Hematocrit Auto (Bld) [Volum e fraction]on 11-08-2021 Hematocrit (Bld) [Volume fraction] 42.0 % 40-54 [facility] Work Phone: Laboratory - Hematology and Cell countson 11-08-2021 Erythrocyte distribution width (RBC) [Entitic vol] 42.3 fL 35.1-43.9 [facility] Work Phone: Erythrocyte distribution width (RBC) [Ratio] 12.5 % 11.6-14.6 [facility] Work Phone: Immature granulocytes/100 WBC (Bld) 0.300 % 0.0-0.9 [facility] Work Phone: Comment on above: IG% - Immature Granu locytes (promyelocytes, myelocytes and metamyelocytes) > 1% indicates that a LEFT SHIFT is Present. MCH (RBC) [Entitic mass] 31.3 pg 27.0-32.0 [facility] Work Phone: Nucleated RBC/100 WBC (Bld) [Ratio] 0 % 0-5 [facility] Work Phone: MCHC Auto (RBC) [Mass/Vol]on 11-08-2021 MCHC (RBC) [Mass/Vol] 33.8 g/dL 32-36 [facility] Work Phone: Platelets bldon 11-08-2021 Platelets (Bld) [#/Vol] 207 10*3/uL 150-450 [facility] Work Phone: Absolute lymphocyte counton 10-25-2021 Lymphocytes Auto (Unsp spec) [#/Vol] 2.05 10*3/uL 0.83-4.51 [facility] Work Phone: Basophil percentageon 2021 Basophils/100 WBC (Bld) 0.4 % 0-1 [facility] Work Phone: Eosinophils/100 WBC (Bld) 0.3 % 0-5 [facility] Work Phone: Neutrophils (Bld) [#/Vol] 4.2 10*3/uL 2.0-7.7 [facility] Work Phone: Neutrophils/100 WBC (Bld) 61.3 % 47-70 [facility] Work Phone: WBC (Bld) [#/Vol] 6.8 10*3/uL 4.4-11.0 [facility] Work Phone: Blood erythrocytes count (nu mber/volume)on 10-25-2021 RBC (Bld) [#/Vol] 4.56 10*6/uL 4.6-6.2 [facility]: Blood hemoglobin measurement (mass/volume)on 10-25-2021 Hemoglobin (Bld) [Mass/Vol] 13.9 g/dL 13.0-16.5 [facility] Work Phone: Blood lymphocytes/100 leukoc yteson 10-25-2021 Lymphocytes/100 WBC (Bld) 30.1 % 19-41 [facility] Work Phone: Blood monocytes/100 leukocyt eson 10-25-2021 Monocytes/100 WBC (Bld) 7.3 % 0-10 [facility] Work Phone: Blood platelet mean volumeon 10-25-2021 Platelet mean volume (Bld) [Entitic vol] 10.6 fL 6.2-12.0 [facility] Work Phone: Determination of erythrocyte mean corpuscular volume (MCV)on 10-25-2021 MCV (RBC) [Entitic vol] 91.0 fL 80-94 [facility] Work Phone: [phone] Hematocrit Auto (Bld) [Volum e fraction]on 10-25-2021 Hematocrit (Bld) [Volume fraction] 41.5 % 40-54 [facility] Work Phone: Laboratory - Hematology and Cell countson 10-25-2021 Erythrocyte distribution width (RBC) [Entitic vol] 41.7 fL 35.1-43.9 [facility] Work Phone: Erythrocyte distribution width (RBC) [Ratio] 12.6 % 11.6-14.6 [facility] Work Phone: Immature granulocytes/100 WBC (Bld) 0.600 % 0.0-0.9 [facility] Work Phone: Comment on above: IG% - Immature Granu locytes (promyelocytes, myelocytes and metamyelocytes) > 1% indicates that a LEFT SHIFT is Present. MCH (RBC) [Entitic mass] 30.5 pg 27.0-32.0 [facility] Work Phone: Nucleated RBC/100 WBC (Bld) [Ratio] 0 % 0-5 [facility] Work Phone: MCHC Auto (RBC) [Mass/Vol]on 10-25-2021 MCHC (RBC) [Mass/Vol] 33.5 g/dL 32-36 [facility] Work Phone: Platelets bldon 10-25-2021 Platelets (Bld) [#/Vol] 191 10*3/uL 150-450 [facility] Work Phone: Absolute lymphocyte counton 10-18-2021 Lymphocytes Auto (Unsp spec) [#/Vol] 1.66 10*3/uL 0.83-4.51 [facility] Work Phone: Basophil percentageon 2021 Basophils/100 WBC (Bld) 0.5 % 0-1 [facility] Work Phone: [phone] Eosinophils/100 WBC (Bld) 0.2 % 0-5 [facility] Work Phone: Neutrophils (Bld) [#/Vol] 4.3 10*3/uL 2.0-7.7 [facility] Work Phone: Neutrophils/100 WBC (Bld) 65.0 % 47-70 [facility] Work Phone: WBC (Bld) [#/Vol] 6.6 10*3/uL 4.4-11.0 [facility]: Blood erythrocytes count (nu mber/volume)on 10-18-2021 RBC (Bld) [#/Vol] 4.57 10*6/uL 4.6-6.2 [facility] Work Phone: Blood hemoglobin measurement (mass/volume)on 10-18-2021 Hemoglobin (Bld) [Mass/Vol] 14.1 g/dL 13.0-16.5 [facility] Work Phone: Blood lymphocytes/100 leukoc yteson 10-18-2021 Lymphocytes/100 WBC (Bld) 25.2 % 19-41 [facility] Work Phone: Blood monocytes/100 leukocyt eson 10-18-2021 Monocytes/100 WBC (Bld) 8.8 % 0-10 [facility] Work Phone: Blood platelet mean volumeon 10-18-2021 Platelet mean volume (Bld) [Entitic vol] 10.6 fL 6.2-12.0 [facility] Work Phone: Determination of erythrocyte mean corpuscular volume (MCV)on 10-18-2021 MCV (RBC) [Entitic vol] 91.7 fL 80-94 [facility] Work Phone: Hematocrit Auto (Bld) [Volum e fraction]on 10-18-2021 Hematocrit (Bld) [Volume fraction] 41.9 % 40-54 [facility] Work Phone: Laboratory - Hematology and Cell countson 10-18-2021 Erythrocyte distribution width (RBC) [Entitic vol] 41.6 fL 35.1-43.9 [facility] Work Phone: Erythrocyte distribution width (RBC) [Ratio] 12.5 % 11.6-14.6 [facility] Work Phone: Immature granulocytes/100 WBC (Bld) 0.300 % 0.0-0.9 [facility] Work Phone: Comment on above: IG% - Immature Granu locytes (promyelocytes, myelocytes and metamyelocytes) > 1% indicates that a LEFT SHIFT is Present. MCH (RBC) [Entitic mass] 30.9 pg 27.0-32.0 [facility] Work Phone: Nucleated RBC/100 WBC (Bld) [Ratio] 0 % 0-5 [facility] Work Phone: MCHC Auto (RBC) [Mass/Vol]on 10-18-2021 MCHC (RBC) [Mass/Vol] 33.7 g/dL 32-36 [facility] Work Phone: Platelets bldon 10-18-2021 Platelets (Bld) [#/Vol] 185 10*3/uL 150-450 [facility] Work Phone: Absolute lymphocyte counton 10-11-2021 Lymphocytes Auto (Unsp spec) [#/Vol] 1.66 10*3/uL 0.83-4.51 [facility] Work Phone: Basophil percentageon 2021 Basophils/100 WBC (Bld) 0.5 % 0-1 [facility] Work Phone: Eosinophils/100 WBC (Bld) 0.1 % 0-5 [facility] Work Phone: Neutrophils (Bld) [#/Vol] 5.9 10*3/uL 2.0-7.7 [facility] Work Phone: Neutrophils/100 WBC (Bld) 70.8 % 47-70 [facility] Work Phone: WBC (Bld) [#/Vol] 8.3 10*3/uL 4.4-11.0 [facility]: Blood erythrocytes count (nu mber/volume)on 10-11-2021 RBC (Bld) [#/Vol] 4.66 10*6/uL 4.6-6.2 [facility] Work Phone: Blood hemoglobin measurement (mass/volume)on 10-11-2021 Hemoglobin (Bld) [Mass/Vol] 14.1 g/dL 13.0-16.5 [facility] Work Phone: Blood lymphocytes/100 leukoc yteson 10-11-2021 Lymphocytes/100 WBC (Bld) 20.0 % 19-41 [facility] Work Phone: Blood monocytes/100 leukocyt eson 10-11-2021 Monocytes/100 WBC (Bld) 8.2 % 0-10 [facility] Work Phone: Blood platelet mean volumeon 10-11-2021 Platelet mean volume (Bld) [Entitic vol] 10.7 fL 6.2-12.0 [facility] Work Phone: Determination of erythrocyte mean corpuscular volume (MCV)on 10-11-2021 MCV (RBC) [Entitic vol] 91.8 fL 80-94 [facility] Work Phone: Hematocrit Auto (Bld) [Volum e fraction]on 10-11-2021 Hematocrit (Bld) [Volume fraction] 42.8 % 40-54 [facility] Work Phone: Laboratory - Hematology and Cell countson 10-11-2021 Erythrocyte distribution width (RBC) [Entitic vol] 42.8 fL 35.1-43.9 [facility] Work Phone: Erythrocyte distribution width (RBC) [Ratio] 12.8 % 11.6-14.6 [facility] Work Phone: Immature granulocytes/100 WBC (Bld) 0.400 % 0.0-0.9 [facility] Work Phone: Comment on above: IG% - Immature Granu locytes (promyelocytes, myelocytes and metamyelocytes) > 1% indicates that a LEFT SHIFT is Present. MCH (RBC) [Entitic mass] 30.3 pg 27.0-32.0 [facility] Work Phone: Nucleated RBC/100 WBC (Bld) [Ratio] 0 % 0-5 [facility] Work Phone: MCHC Auto (RBC) [Mass/Vol]on 10-11-2021 MCHC (RBC) [Mass/Vol] 32.9 g/dL 32-36 [facility] Work Phone: Platelets bldon 10-11-2021 Platelets (Bld) [#/Vol] 193 10*3/uL 150-450 [facility] Work Phone: [phone] Absolute lymphocyte counton 10-04-2021 Lymphocytes Auto (Unsp spec) [#/Vol] 1.97 10*3/uL 0.83-4.51 [facility] Work Phone: Basophil percentageon 2021 Basophils/100 WBC (Bld) 0.5 % 0-1 [facility] Work Phone: Eosinophils/100 WBC (Bld) 0.1 % 0-5 [facility] Work Phone: Neutrophils (Bld) [#/Vol] 5.0 10*3/uL 2.0-7.7 [facility] Work Phone: Neutrophils/100 WBC (Bld) 64.4 % 47-70 [facility] Work Phone: WBC (Bld) [#/Vol] 7.7 10*3/uL 4.4-11.0 [facility]: Blood erythrocytes count (nu mber/volume)on 10-04-2021 RBC (Bld) [#/Vol] 4.52 10*6/uL 4.6-6.2 [facility] Work Phone: Blood hemoglobin measurement (mass/volume)on 10-04-2021 Hemoglobin (Bld) [Mass/Vol] 13.9 g/dL 13.0-16.5 [facility] Work Phone: Blood lymphocytes/100 leukoc yteson 10-04-2021 Lymphocytes/100 WBC (Bld) 25.6 % 19-41 [facility] Work Phone: Blood monocytes/100 leukocyt eson 10-04-2021 Monocytes/100 WBC (Bld) 9.0 % 0-10 [facility] Work Phone: Blood platelet mean volumeon 10-04-2021 Platelet mean volume (Bld) [Entitic vol] 11.0 fL 6.2-12.0 [facility] Work Phone: Determination of erythrocyte mean corpuscular volume (MCV)on 10-04-2021 MCV (RBC) [Entitic vol] 91.4 fL 80-94 [facility] Work Phone: Hematocrit Auto (Bld) [Volum e fraction]on 10-04-2021 Hematocrit (Bld) [Volume fraction] 41.3 % 40-54 [facility] Work Phone: Laboratory - Hematology and Cell countson 10-04-2021 Erythrocyte distribution width (RBC) [Entitic vol] 42.2 fL 35.1-43.9 [facility] Work Phone: Erythrocyte distribution width (RBC) [Ratio] 12.8 % 11.6-14.6 [facility] Work Phone: Immature granulocytes/100 WBC (Bld) 0.400 % 0.0-0.9 [facility] Work Phone: Comment on above: IG% - Immature Granu locytes (promyelocytes, myelocytes and metamyelocytes) > 1% indicates that a LEFT SHIFT is Present. MCH (RBC) [Entitic mass] 30.8 pg 27.0-32.0 [facility] Work Phone: Nucleated RBC/100 WBC (Bld) [Ratio] 0 % 0-5 [facility] Work Phone: [phone] MCHC Auto (RBC) [Mass/Vol]on 10-04-2021 MCHC (RBC) [Mass/Vol] 33.7 g/dL 32-36 [facility] Work Phone: [phone] Platelets bldon 10-04-2021 Platelets (Bld) [#/Vol] 179 10*3/uL 150-450 [facility] Work Phone: [phone] Absolute lymphocyte counton 09-28-2021 Lymphocytes Auto (Unsp spec) [#/Vol] 2.10 10*3/uL 0.83-4.51 [facility] Work Phone: [phone] Basophil percentageon 2021 Basophils/100 WBC (Bld) 0.4 % 0-1 [facility] Work Phone: Eosinophils/100 WBC (Bld) 0.3 % 0-5 [facility] Work Phone: Neutrophils (Bld) [#/Vol] 4.3 10*3/uL 2.0-7.7 [facility] Work Phone: Neutrophils/100 WBC (Bld) 59.9 % 47-70 [facility] Work Phone: [phone] WBC (Bld) [#/Vol] 7.2 10*3/uL 4.4-11.0 [facility] Work Phone: Blood erythrocytes count (nu mber/volume)on 09-28-2021 RBC (Bld) [#/Vol] 4.34 10*6/uL 4.6-6.2 [facility] Work Phone: Blood hemoglobin measurement (mass/volume)on 09-28-2021 Hemoglobin (Bld) [Mass/Vol] 13.3 g/dL 13.0-16.5 [facility] Work Phone: [phone] Blood lymphocytes/100 leukoc yteson 09-28-2021 Lymphocytes/100 WBC (Bld) 29.3 % 19-41 [facility] Work Phone: Blood monocytes/100 leukocyt eson 09-28-2021 Monocytes/100 WBC (Bld) 9.8 % 0-10 [facility] Work Phone: Blood platelet mean volumeon 09-28-2021 Platelet mean volume (Bld) [Entitic vol] 10.7 fL 6.2-12.0 [facility] Work Phone: Determination of erythrocyte mean corpuscular volume (MCV)on 09-28-2021 MCV (RBC) [Entitic vol] 91.2 fL 80-94 [facility] Work Phone: Hematocrit Auto (Bld) [Volum e fraction]on 09-28-2021 Hematocrit (Bld) [Volume fraction] 39.6 % 40-54 [facility] Work Phone: Laboratory - Hematology and Cell countson 09-28-2021 Erythrocyte distribution width (RBC) [Entitic vol] 41.8 fL 35.1-43.9 [facility] Work Phone: Erythrocyte distribution width (RBC) [Ratio] 12.6 % 11.6-14.6 [facility] Work Phone: Immature granulocytes/100 WBC (Bld) 0.300 % 0.0-0.9 [facility] Work Phone: Comment on above: IG% - Immature Granu locytes (promyelocytes, myelocytes and metamyelocytes) > 1% indicates that a LEFT SHIFT is Present. MCH (RBC) [Entitic mass] 30.6 pg 27.0-32.0 [facility] Work Phone: Nucleated RBC/100 WBC (Bld) [Ratio] 0 % 0-5 [facility] Work Phone: MCHC Auto (RBC) [Mass/Vol]on 09-28-2021 MCHC (RBC) [Mass/Vol] 33.6 g/dL 32-36 [facility] Work Phone: Platelets bldon 09-28-2021 Platelets (Bld) [#/Vol] 181 10*3/uL 150-450 [facility] Work Phone: Absolute lymphocyte counton 09-20-2021 Lymphocytes Auto (Unsp spec) [#/Vol] 1.79 10*3/uL 0.83-4.51 [facility] Work Phone: [phone] Basophil percentageon 2021 Basophils/100 WBC (Bld) 0.4 % 0-1 [facility] Work Phone: Eosinophils/100 WBC (Bld) 0.3 % 0-5 [facility] Work Phone: Neutrophils (Bld) [#/Vol] 4.1 10*3/uL 2.0-7.7 [facility] Work Phone: Neutrophils/100 WBC (Bld) 61.3 % 47-70 [facility] Work Phone: WBC (Bld) [#/Vol] 6.7 10*3/uL 4.4-11.0 [facility]: [phone] Blood erythrocytes count (nu mber/volume)on 09-20-2021 RBC (Bld) [#/Vol] 4.32 10*6/uL 4.6-6.2 [facility] Work Phone: Blood hemoglobin measurement (mass/volume)on 09-20-2021 Hemoglobin (Bld) [Mass/Vol] 13.6 g/dL 13.0-16.5 [facility] Work Phone: Blood lymphocytes/100 leukoc yteson 09-20-2021 Lymphocytes/100 WBC (Bld) 26.8 % 19-41 [facility] Work Phone: [phone] Blood monocytes/100 leukocyt eson 09-20-2021 Monocytes/100 WBC (Bld) 10.8 % 0-10 [facility] Work Phone: Blood platelet mean volumeon 09-20-2021 Platelet mean volume (Bld) [Entitic vol] 10.7 fL 6.2-12.0 [facility] Work Phone: Determination of erythrocyte mean corpuscular volume (MCV)on 09-20-2021 MCV (RBC) [Entitic vol] 93.1 fL 80-94 [facility] Work Phone: Hematocrit Auto (Bld) [Volum e fraction]on 09-20-2021 Hematocrit (Bld) [Volume fraction] 40.2 % 40-54 [facility] Work Phone: Laboratory - Hematology and Cell countson 09-20-2021 Erythrocyte distribution width (RBC) [Entitic vol] 43.0 fL 35.1-43.9 [facility] Work Phone: Erythrocyte distribution width (RBC) [Ratio] 12.6 % 11.6-14.6 [facility] Work Phone: Immature granulocytes/100 WBC (Bld) 0.400 % 0.0-0.9 [facility] Work Phone: Comment on above: IG% - Immature Granu locytes (promyelocytes, myelocytes and metamyelocytes) > 1% indicates that a LEFT SHIFT is Present. MCH (RBC) [Entitic mass] 31.5 pg 27.0-32.0 [facility] Work Phone: Nucleated RBC/100 WBC (Bld) [Ratio] 0 % 0-5 [facility] Work Phone: MCHC Auto (RBC) [Mass/Vol]on 09-20-2021 MCHC (RBC) [Mass/Vol] 33.8 g/dL 32-36 [facility] Work Phone: Platelets bldon 09-20-2021 Platelets (Bld) [#/Vol] 170 10*3/uL 150-450 [facility] Work Phone: Absolute lymphocyte counton 09-13-2021 Lymphocytes Auto (Unsp spec) [#/Vol] 1.85 10*3/uL 0.83-4.51 [facility] Work Phone: Basophil percentageon 2021 Basophils/100 WBC (Bld) 0.6 % 0-1 [facility] Work Phone: Eosinophils/100 WBC (Bld) 0.3 % 0-5 [facility] Work Phone: Neutrophils (Bld) [#/Vol] 4.3 10*3/uL 2.0-7.7 [facility] Work Phone: Neutrophils/100 WBC (Bld) 63.1 % 47-70 [facility] Work Phone: WBC (Bld) [#/Vol] 6.7 10*3/uL 4.4-11.0 [facility] Work [facility]: Blood erythrocytes count (nu mber/volume)on 09-13-2021 RBC (Bld) [#/Vol] 4.63 10*6/uL 4.6-6.2 [facility] Work Phone: Blood hemoglobin measurement (mass/volume)on 09-13-2021 Hemoglobin (Bld) [Mass/Vol] 14.2 g/dL 13.0-16.5 [facility] Work Phone: Blood lymphocytes/100 leukoc yteson 09-13-2021 Lymphocytes/100 WBC (Bld) 27.5 % 19-41 [facility] Work Phone: Blood monocytes/100 leukocyt eson 09-13-2021 Monocytes/100 WBC (Bld) 8.2 % 0-10 [facility] Work Phone: Blood platelet mean volumeon 09-13-2021 Platelet mean volume (Bld) [Entitic vol] 11.0 fL 6.2-12.0 [facility] Work Phone: Determination of erythrocyte mean corpuscular volume (MCV)on 09-13-2021 MCV (RBC) [Entitic vol] 93.5 fL 80-94 [facility] Work Phone: Hematocrit Auto (Bld) [Volum e fraction]on 09-13-2021 Hematocrit (Bld) [Volume fraction] 43.3 % 40-54 [facility] Work Phone: Laboratory - Hematology and Cell countson 09-13-2021 Erythrocyte distribution width (RBC) [Entitic vol] 43.0 fL 35.1-43.9 [facility] Work Phone: Erythrocyte distribution width (RBC) [Ratio] 12.6 % 11.6-14.6 [facility] Work Phone: Immature granulocytes/100 WBC (Bld) 0.300 % 0.0-0.9 [facility] Work Phone: Comment on above: IG% - Immature Granu locytes (promyelocytes, myelocytes and metamyelocytes) > 1% indicates that a LEFT SHIFT is Present. MCH (RBC) [Entitic mass] 30.7 pg 27.0-32.0 [facility] Work Phone: Nucleated RBC/100 WBC (Bld) [Ratio] 0 % 0-5 [facility] Work Phone: MCHC Auto (RBC) [Mass/Vol]on 09-13-2021 MCHC (RBC) [Mass/Vol] 32.8 g/dL 32-36 [facility] Work Phone: Platelets bldon 09-13-2021 Platelets (Bld) [#/Vol] 188 10*3/uL 150-450 [facility] Work Phone: Absolute lymphocyte counton 09-06-2021 Lymphocytes Auto (Unsp spec) [#/Vol] 1.86 10*3/uL 0.83-4.51 [facility] Work Phone: Basophil percentageon 2021 Basophils/100 WBC (Bld) 0.7 % 0-1 [facility] Work Phone: Eosinophils/100 WBC (Bld) 0.3 % 0-5 [facility] Work Phone: Neutrophils (Bld) [#/Vol] 4.4 10*3/uL 2.0-7.7 [facility] Work Phone: Neutrophils/100 WBC (Bld) 62.6 % 47-70 [facility] Work Phone: WBC (Bld) [#/Vol] 7.0 10*3/uL 4.4-11.0 [facility] Work Phone: Blood erythrocytes count (nu mber/volume)on 09-06-2021 RBC (Bld) [#/Vol] 4.51 10*6/uL 4.6-6.2 [facility] Work Phone: Blood hemoglobin measurement (mass/volume)on 09-06-2021 Hemoglobin (Bld) [Mass/Vol] 13.8 g/dL 13.0-16.5 [facility] Work Phone: Blood lymphocytes/100 leukoc yteson 09-06-2021 Lymphocytes/100 WBC (Bld) 26.5 % 19-41 [facility] Work Phone: Blood monocytes/100 leukocyt eson 09-06-2021 Monocytes/100 WBC (Bld) 9.5 % 0-10 [facility] Work Phone: Blood platelet mean volumeon 09-06-2021 Platelet mean volume (Bld) [Entitic vol] 10.7 fL 6.2-12.0 [facility] Work Phone: Determination of erythrocyte mean corpuscular volume (MCV)on 09-06-2021 MCV (RBC) [Entitic vol] 92.9 fL 80-94 [facility] Work Phone: Hematocrit Auto (Bld) [Volum e fraction]on 09-06-2021 Hematocrit (Bld) [Volume fraction] 41.9 % 40-54 [facility] Work Phone: Laboratory - Hematology and Cell countson 09-06-2021 Erythrocyte distribution width (RBC) [Entitic vol] 43.0 fL 35.1-43.9 [facility] Work Phone: [phone] Erythrocyte distribution width (RBC) [Ratio] 12.7 % 11.6-14.6 [facility] Work Phone: [phone] Immature granulocytes/100 WBC (Bld) 0.400 % 0.0-0.9 [facility] Work Phone: Comment on above: IG% - Immature Granu locytes (promyelocytes, myelocytes and metamyelocytes) > 1% indicates that a LEFT SHIFT is Present. MCH (RBC) [Entitic mass] 30.6 pg 27.0-32.0 [facility] Work Phone: [phone] Nucleated RBC/100 WBC (Bld) [Ratio] 0 % 0-5 [facility] Work Phone: MCHC Auto (RBC) [Mass/Vol]on 09-06-2021 MCHC (RBC) [Mass/Vol] 32.9 g/dL 32-36 [facility] Work Phone: Platelets bldon 09-06-2021 Platelets (Bld) [#/Vol] 189 10*3/uL 150-450 [facility] Work Phone: [phone] Absolute lymphocyte counton 08-30-2021 Lymphocytes Auto (Unsp spec) [#/Vol] 1.44 10*3/uL 0.83-4.51 [facility] Work Phone: Basophil percentageon 2021 Basophils/100 WBC (Bld) 0.3 % 0-1 [facility] Work Phone: Eosinophils/100 WBC (Bld) 0.2 % 0-5 [facility] Work Phone: Neutrophils (Bld) [#/Vol] 9.6 10*3/uL 2.0-7.7 [facility] Work Phone: Neutrophils/100 WBC (Bld) 80.4 % 47-70 [facility] Work Phone: WBC (Bld) [#/Vol] 12.0 10*3/uL 4.4-11.0 [facility] Work Phone: Blood erythrocytes count (nu mber/volume)on 08-30-2021 RBC (Bld) [#/Vol] 4.52 10*6/uL 4.6-6.2 [facility] Work Phone: Blood hemoglobin measurement (mass/volume)on 08-30-2021 Hemoglobin (Bld) [Mass/Vol] 13.9 g/dL 13.0-16.5 [facility] Work Phone: Blood lymphocytes/100 leukoc yteson 08-30-2021 Lymphocytes/100 WBC (Bld) 12.0 % 19-41 [facility] Work Phone: Blood monocytes/100 leukocyt eson 08-30-2021 Monocytes/100 WBC (Bld) 6.7 % 0-10 [facility] Work Phone: Blood platelet mean volumeon 08-30-2021 Platelet mean volume (Bld) [Entitic vol] 11.3 fL 6.2-12.0 [facility] Work Phone: Determination of erythrocyte mean corpuscular volume (MCV)on 08-30-2021 MCV (RBC) [Entitic vol] 92.7 fL 80-94 [facility] Work Phone: Hematocrit Auto (Bld) [Volum e fraction]on 08-30-2021 Hematocrit (Bld) [Volume fraction] 41.9 % 40-54 [facility] Work Phone: Laboratory - Hematology and Cell countson 08-30-2021 Erythrocyte distribution width (RBC) [Entitic vol] 42.6 fL 35.1-43.9 [facility] Work Phone: Erythrocyte distribution width (RBC) [Ratio] 12.6 % 11.6-14.6 [facility] Work Phone: Immature granulocytes/100 WBC (Bld) 0.400 % 0.0-0.9 [facility] Work Phone: Comment on above: IG% - Immature Granu locytes (promyelocytes, myelocytes and metamyelocytes) > 1% indicates that a LEFT SHIFT is Present. MCH (RBC) [Entitic mass] 30.8 pg 27.0-32.0 [facility] Work Phone: Nucleated RBC/100 WBC (Bld) [Ratio] 0 % 0-5 [facility] Work Phone: MCHC Auto (RBC) [Mass/Vol]on 08-30-2021 MCHC (RBC) [Mass/Vol] 33.2 g/dL 32-36 [facility] Work Phone: Platelets bldon 08-30-2021 Platelets (Bld) [#/Vol] 200 10*3/uL 150-450 [facility] Work Phone: Absolute lymphocyte counton 08-23-2021 Lymphocytes Auto (Unsp spec) [#/Vol] 1.91 10*3/uL 0.83-4.51 [facility] Work Phone: Basophil percentageon 2021 Basophils/100 WBC (Bld) 0.4 % 0-1 [facility] Work Phone: Eosinophils/100 WBC (Bld) 0.3 % 0-5 [facility] Work Phone: Neutrophils (Bld) [#/Vol] 4.2 10*3/uL 2.0-7.7 [facility] Work Phone: Neutrophils/100 WBC (Bld) 62.3 % 47-70 [facility] Work Phone: WBC (Bld) [#/Vol] 6.8 10*3/uL 4.4-11.0 [facility] Work Phone: [phone] Blood erythrocytes count (nu mber/volume)on 08-23-2021 RBC (Bld) [#/Vol] 4.46 10*6/uL 4.6-6.2 [facility]: Blood hemoglobin measurement (mass/volume)on 08-23-2021 Hemoglobin (Bld) [Mass/Vol] 13.7 g/dL 13.0-16.5 [facility] Work Phone: Blood lymphocytes/100 leukoc yteson 08-23-2021 Lymphocytes/100 WBC (Bld) 28.3 % 19-41 [facility] Work Phone: Blood monocytes/100 leukocyt eson 08-23-2021 Monocytes/100 WBC (Bld) 8.1 % 0-10 [facility] Work Phone: Blood platelet mean volumeon 08-23-2021 Platelet mean volume (Bld) [Entitic vol] 10.6 fL 6.2-12.0 [facility] Work Phone: Determination of erythrocyte mean corpuscular volume (MCV)on 08-23-2021 MCV (RBC) [Entitic vol] 93.0 fL 80-94 [facility] Work Phone: Hematocrit Auto (Bld) [Volum e fraction]on 08-23-2021 Hematocrit (Bld) [Volume fraction] 41.5 % 40-54 [facility] Work Phone: Laboratory - Hematology and Cell countson 08-23-2021 Erythrocyte distribution width (RBC) [Entitic vol] 42.4 fL 35.1-43.9 [facility] Work Phone: Erythrocyte distribution width (RBC) [Ratio] 12.5 % 11.6-14.6 [facility] Work Phone: Immature granulocytes/100 WBC (Bld) 0.600 % 0.0-0.9 [facility] Work Phone: Comment on above: IG% - Immature Granu locytes (promyelocytes, myelocytes and metamyelocytes) > 1% indicates that a LEFT SHIFT is Present. MCH (RBC) [Entitic mass] 30.7 pg 27.0-32.0 [facility] Work Phone: Nucleated RBC/100 WBC (Bld) [Ratio] 0 % 0-5 [facility] Work Phone: MCHC Auto (RBC) [Mass/Vol]on 08-23-2021 MCHC (RBC) [Mass/Vol] 33.0 g/dL 32-36 [facility] Work Phone: Platelets bldon 08-23-2021 Platelets (Bld) [#/Vol] 198 10*3/uL 150-450 [facility] Work Phone: Basophil percentageon 2021 Basophil percentage 0 SEEN /hpf 0-5 [facility] Work Phone: Bilirubin Test strip Ql (U)o n 08-18-2021 Bilirubin Ql (U) Negative Negative [facility] Work Phone: Culture, urineon 08-18-2021 Bacteria identified Cx Nom (U) Culture exhibits no growth. [facility] Work Phone: Ketones Test strip Ql (U)on 08-18-2021 Ketones Ql (U) Negative Negative [facility] Work Phone: Mucus LM Ql (Urine sed)on Mucus Ql (Urine sed) 0 SEEN /hpf [facility] Work Phone: Nitrite Test strip Ql (U)on 08-18-2021 Nitrite Ql (U) Negative Negative [facility] Work Phone: Protein Test strip Ql (U)on 08-18-2021 Protein Ql (U) Negative Negative [facility] Work Phone: Squamous epithelial cells de tection in urine sediment by light microscopyon 08-18-2021 Epithelial cells.squamous LM Ql (Urine sed) 0 SEEN /hpf 0-5 [facility] Work Phone: Urine blood detectionon - RBC Ql (U) Negative Negative [facility] Work Phone: RBC Ql (U) 0 SEEN /hpf 0-5 [facility] Work Phone: Urine clarityon 08-18-2021 Clarity (U) Clear Clear [facility] Work Phone: Urine color determinationon 08-18-2021 Color (U) Yellow Yellow [facility] Work Phone: Urine glucose detectionon Glucose Ql (U) Normal mg/dl Normal [facility] Work Phone: Urine leukocyte esterase det ection by dipstickon 08-18-2021 Leukocyte esterase Test strip Ql (U) Negative Negative [facility] Work Phone: Urine pHon 08-18-2021 pH (U) 7.0 [pH] 5.0 - 8.0 [facility] Work Phone: Urine sediment bacteria coun t by microscopy (number/high power field)on 08-18-2021 Bacteria LM.HPF (Urine sed) [#/Area] 0 /[HPF] None Seen [facility] Work Phone: Urine specific gravity measu rementon 08-18-2021 Specific gravity (U) [Rel density] 1.010 1.002-1.030 [facility] Work Phone: Urobilinogen Auto test strip Ql (U)on 08-18-2021 Urobilinogen Ql (U) 4 mg/dl Normal [facility] Work Phone: Absolute lymphocyte counton 08-16-2021 Lymphocytes Auto (Unsp spec) [#/Vol] 1.71 10*3/uL 0.83-4.51 [facility] Work Phone: Basophil percentageon 2021 Basophils/100 WBC (Bld) 0.3 % 0-1 [facility] Work Phone: Eosinophils/100 WBC (Bld) 0.2 % 0-5 [facility] Work Phone: Neutrophils (Bld) [#/Vol] 8.6 10*3/uL 2.0-7.7 [facility] Work Phone: Neutrophils/100 WBC (Bld) 76.8 % 47-70 [facility] Work Phone: WBC (Bld) [#/Vol] 11.2 10*3/uL 4.4-11.0 [facility] Work Phone: Blood erythrocytes count (nu mber/volume)on 08-16-2021 RBC (Bld) [#/Vol] 4.42 10*6/uL 4.6-6.2 [facility] Work Phone: Blood hemoglobin measurement (mass/volume)on 08-16-2021 Hemoglobin (Bld) [Mass/Vol] 13.4 g/dL 13.0-16.5 [facility] Work Phone: Blood lymphocytes/100 leukoc yteson 08-16-2021 Lymphocytes/100 WBC (Bld) 15.2 % 19-41 [facility] Work Phone: Blood monocytes/100 leukocyt eson 08-16-2021 Monocytes/100 WBC (Bld) 7.1 % 0-10 [facility] Work Phone: Blood platelet mean volumeon 08-16-2021 Platelet mean volume (Bld) [Entitic vol] 11.0 fL 6.2-12.0 [facility] Work Phone: Determination of erythrocyte mean corpuscular volume (MCV)on 08-16-2021 MCV (RBC) [Entitic vol] 91.9 fL 80-94 [facility] Work Phone: Hematocrit Auto (Bld) [Volum e fraction]on 08-16-2021 Hematocrit (Bld) [Volume fraction] 40.6 % 40-54 [facility] Work Phone: Laboratory - Hematology and Cell countson 08-16-2021 Erythrocyte distribution width (RBC) [Entitic vol] 43.0 fL 35.1-43.9 [facility] Work Phone: Erythrocyte distribution width (RBC) [Ratio] 12.7 % 11.6-14.6 [facility] Work Phone: Immature granulocytes/100 WBC (Bld) 0.400 % 0.0-0.9 [facility] Work Phone: Comment on above: IG% - Immature Granu locytes (promyelocytes, myelocytes and metamyelocytes) > 1% indicates that a LEFT SHIFT is Present. MCH (RBC) [Entitic mass] 30.3 pg 27.0-32.0 [facility] Work Phone: Nucleated RBC/100 WBC (Bld) [Ratio] 0 % 0-5 [facility] Work Phone: MCHC Auto (RBC) [Mass/Vol]on 08-16-2021 MCHC (RBC) [Mass/Vol] 33.0 g/dL 32-36 [facility] Work Phone: Platelets bldon 08-16-2021 Platelets (Bld) [#/Vol] 187 10*3/uL 150-450 [facility] Work Phone: Absolute lymphocyte counton 08-09-2021 Lymphocytes Auto (Unsp spec) [#/Vol] 1.78 10*3/uL 0.83-4.51 [facility] Work Phone: Basophil percentageon 2021 Basophils/100 WBC (Bld) 0.5 % 0-1 [facility] Work Phone: Eosinophils/100 WBC (Bld) 0.1 % 0-5 [facility] Work Phone: Neutrophils (Bld) [#/Vol] 6.0 10*3/uL 2.0-7.7 [facility] Work Phone: Neutrophils/100 WBC (Bld) 71.3 % 47-70 [facility] Work Phone: WBC (Bld) [#/Vol] 8.4 10*3/uL 4.4-11.0 [facility]: Blood erythrocytes count (nu mber/volume)on 08-09-2021 RBC (Bld) [#/Vol] 4.37 10*6/uL 4.6-6.2 [facility] Work Phone: Blood hemoglobin measurement (mass/volume)on 08-09-2021 Hemoglobin (Bld) [Mass/Vol] 13.5 g/dL 13.0-16.5 [facility] Work Phone: Blood lymphocytes/100 leukoc yteson 08-09-2021 Lymphocytes/100 WBC (Bld) 21.2 % 19-41 [facility] Work Phone: Blood monocytes/100 leukocyt eson 08-09-2021 Monocytes/100 WBC (Bld) 6.5 % 0-10 [facility] Work Phone: Blood platelet mean volumeon 08-09-2021 Platelet mean volume (Bld) [Entitic vol] 11.1 fL 6.2-12.0 [facility] Work Phone: Determination of erythrocyte mean corpuscular volume (MCV)on 08-09-2021 MCV (RBC) [Entitic vol] 91.3 fL 80-94 [facility] Work Phone: Hematocrit Auto (Bld) [Volum e fraction]on 08-09-2021 Hematocrit (Bld) [Volume fraction] 39.9 % 40-54 [facility] Work Phone: Laboratory - Hematology and Cell countson 08-09-2021 Erythrocyte distribution width (RBC) [Entitic vol] 41.4 fL 35.1-43.9 [facility] Work Phone: Erythrocyte distribution width (RBC) [Ratio] 12.5 % 11.6-14.6 [facility] Work Phone: Immature granulocytes/100 WBC (Bld) 0.400 % 0.0-0.9 [facility] Work Phone: Comment on above: IG% - Immature Granu locytes (promyelocytes, myelocytes and metamyelocytes) > 1% indicates that a LEFT SHIFT is Present. MCH (RBC) [Entitic mass] 30.9 pg 27.0-32.0 [facility] Work Phone: Nucleated RBC/100 WBC (Bld) [Ratio] 0 % 0-5 [facility] Work Phone: MCHC Auto (RBC) [Mass/Vol]on 08-09-2021 MCHC (RBC) [Mass/Vol] 33.8 g/dL 32-36 [facility] Work Phone: Platelets bldon 08-09-2021 Platelets (Bld) [#/Vol] 177 10*3/uL 150-450 [facility] Work Phone: [phone] Absolute lymphocyte counton 08-02-2021 Lymphocytes Auto (Unsp spec) [#/Vol] 1.69 10*3/uL 0.83-4.51 [facility] Work Phone: Basophil percentageon 2021 Basophils/100 WBC (Bld) 0.3 % 0-1 [facility] Work Phone: Eosinophils/100 WBC (Bld) 0.3 % 0-5 [facility] Work Phone: Neutrophils (Bld) [#/Vol] 3.8 10*3/uL 2.0-7.7 [facility] Work Phone: Neutrophils/100 WBC (Bld) 61.9 % 47-70 [facility] Work Phone: WBC (Bld) [#/Vol] 6.1 10*3/uL 4.4-11.0 [facility] Work Phone: Blood erythrocytes count (nu mber/volume)on 08-02-2021 RBC (Bld) [#/Vol] 4.54 10*6/uL 4.6-6.2 [facility] Work Phone: Blood hemoglobin measurement (mass/volume)on 08-02-2021 Hemoglobin (Bld) [Mass/Vol] 13.8 g/dL 13.0-16.5 [facility] Work Phone: Blood lymphocytes/100 leukoc yteson 08-02-2021 Lymphocytes/100 WBC (Bld) 27.7 % 19-41 [facility] Work Phone: Blood monocytes/100 leukocyt eson 08-02-2021 Monocytes/100 WBC (Bld) 9.5 % 0-10 [facility] Work Phone: Blood platelet mean volumeon 08-02-2021 Platelet mean volume (Bld) [Entitic vol] 11.2 fL 6.2-12.0 [facility] Work Phone: Determination of erythrocyte mean corpuscular volume (MCV)on 08-02-2021 MCV (RBC) [Entitic vol] 90.1 fL 80-94 [facility] Work Phone: Hematocrit Auto (Bld) [Volum e fraction]on 08-02-2021 Hematocrit (Bld) [Volume fraction] 40.9 % 40-54 [facility] Work Phone: Laboratory - Hematology and Cell countson 08-02-2021 Erythrocyte distribution width (RBC) [Entitic vol] 40.3 fL 35.1-43.9 [facility] Work Phone: Erythrocyte distribution width (RBC) [Ratio] 12.4 % 11.6-14.6 [facility] Work Phone: Immature granulocytes/100 WBC (Bld) 0.300 % 0.0-0.9 [facility] Work Phone: Comment on above: IG% - Immature Granu locytes (promyelocytes, myelocytes and metamyelocytes) > 1% indicates that a LEFT SHIFT is Present. MCH (RBC) [Entitic mass] 30.4 pg 27.0-32.0 [facility] Work Phone: Nucleated RBC/100 WBC (Bld) [Ratio] 0 % 0-5 [facility] Work Phone: MCHC Auto (RBC) [Mass/Vol]on 08-02-2021 MCHC (RBC) [Mass/Vol] 33.7 g/dL 32-36 [facility] Work Phone: Platelets bldon 08-02-2021 Platelets (Bld) [#/Vol] 192 10*3/uL 150-450 [facility] Work Phone: Absolute lymphocyte counton 07-26-2021 Lymphocytes Auto (Unsp spec) [#/Vol] 1.83 10*3/uL 0.83-4.51 [facility] Work Phone: Basophil percentageon 2021 Basophils/100 WBC (Bld) 0.5 % 0-1 [facility] Work Phone: Eosinophils/100 WBC (Bld) 0.3 % 0-5 [facility] Work Phone: Neutrophils (Bld) [#/Vol] 3.3 10*3/uL 2.0-7.7 [facility] Work Phone: Neutrophils/100 WBC (Bld) 58.1 % 47-70 [facility] Work Phone: WBC (Bld) [#/Vol] 5.7 10*3/uL 4.4-11.0 [facility] Work Phone: [phone] Blood erythrocytes count (nu mber/volume)on 07-26-2021 RBC (Bld) [#/Vol] 4.21 10*6/uL 4.6-6.2 [facility] Work Phone: Blood hemoglobin measurement (mass/volume)on 07-26-2021 Hemoglobin (Bld) [Mass/Vol] 12.9 g/dL 13.0-16.5 [facility] Work Phone: Blood lymphocytes/100 leukoc yteson 07-26-2021 Lymphocytes/100 WBC (Bld) 31.9 % 19-41 [facility] Work Phone: Blood monocytes/100 leukocyt eson 07-26-2021 Monocytes/100 WBC (Bld) 8.9 % 0-10 [facility] Work Phone: Blood platelet mean volumeon 07-26-2021 Platelet mean volume (Bld) [Entitic vol] 11.5 fL 6.2-12.0 [facility] Work Phone: Determination of erythrocyte mean corpuscular volume (MCV)on 07-26-2021 MCV (RBC) [Entitic vol] 90.7 fL 80-94 [facility] Work Phone: Hematocrit Auto (Bld) [Volum e fraction]on 07-26-2021 Hematocrit (Bld) [Volume fraction] 38.2 % 40-54 [facility] Work Phone: Laboratory - Hematology and Cell countson 07-26-2021 Erythrocyte distribution width (RBC) [Entitic vol] 41.2 fL 35.1-43.9 [facility] Work Phone: Erythrocyte distribution width (RBC) [Ratio] 12.5 % 11.6-14.6 [facility] Work Phone: Immature granulocytes/100 WBC (Bld) 0.300 % 0.0-0.9 [facility] Work Phone: Comment on above: IG% - Immature Granu locytes (promyelocytes, myelocytes and metamyelocytes) > 1% indicates that a LEFT SHIFT is Present. MCH (RBC) [Entitic mass] 30.6 pg 27.0-32.0 [facility] Work Phone: Nucleated RBC/100 WBC (Bld) [Ratio] 0 % 0-5 [facility] Work Phone: MCHC Auto (RBC) [Mass/Vol]on 07-26-2021 MCHC (RBC) [Mass/Vol] 33.8 g/dL 32-36 [facility] Work Phone: Platelets bldon 07-26-2021 Platelets (Bld) [#/Vol] 180 10*3/uL 150-450 [facility] Work Phone: Absolute lymphocyte counton 07-19-2021 Lymphocytes Auto (Unsp spec) [#/Vol] 2.04 10*3/uL 0.83-4.51 [facility] Work Phone: Basophil percentageon 2021 Basophils/100 WBC (Bld) 0.3 % 0-1 [facility] Work Phone: [phone] Eosinophils/100 WBC (Bld) 0.4 % 0-5 [facility] Work Phone: Neutrophils (Bld) [#/Vol] 4.0 10*3/uL 2.0-7.7 [facility] Work Phone: Neutrophils/100 WBC (Bld) 59.2 % 47-70 [facility] Work Phone: WBC (Bld) [#/Vol] 6.7 10*3/uL 4.4-11.0 [facility] Work Phone: Blood erythrocytes count (nu mber/volume)on 07-19-2021 RBC (Bld) [#/Vol] 4.53 10*6/uL 4.6-6.2 [facility] Work Phone: Blood hemoglobin measurement (mass/volume)on 07-19-2021 Hemoglobin (Bld) [Mass/Vol] 14.1 g/dL 13.0-16.5 [facility] Work Phone: Blood lymphocytes/100 leukoc yteson 07-19-2021 Lymphocytes/100 WBC (Bld) 30.5 % 19-41 [facility] Work Phone: [phone] Blood monocytes/100 leukocyt eson 07-19-2021 Monocytes/100 WBC (Bld) 9.0 % 0-10 [facility] Work Phone: Blood platelet mean volumeon 07-19-2021 Platelet mean volume (Bld) [Entitic vol] 11.4 fL 6.2-12.0 [facility] Work Phone: Determination of erythrocyte mean corpuscular volume (MCV)on 07-19-2021 MCV (RBC) [Entitic vol] 90.5 fL 80-94 [facility] Work Phone: Hematocrit Auto (Bld) [Volum e fraction]on 07-19-2021 Hematocrit (Bld) [Volume fraction] 41.0 % 40-54 [facility] Work Phone: Laboratory - Hematology and Cell countson 07-19-2021 Erythrocyte distribution width (RBC) [Entitic vol] 41.1 fL 35.1-43.9 [facility] Work Phone: Erythrocyte distribution width (RBC) [Ratio] 12.5 % 11.6-14.6 [facility] Work Phone: Immature granulocytes/100 WBC (Bld) 0.600 % 0.0-0.9 [facility] Work Phone: Comment on above: IG% - Immature Granu locytes (promyelocytes, myelocytes and metamyelocytes) > 1% indicates that a LEFT SHIFT is Present. MCH (RBC) [Entitic mass] 31.1 pg 27.0-32.0 [facility] Work Phone: Nucleated RBC/100 WBC (Bld) [Ratio] 0 % 0-5 [facility] Work Phone: MCHC Auto (RBC) [Mass/Vol]on 07-19-2021 MCHC (RBC) [Mass/Vol] 34.4 g/dL 32-36 [facility] Work Phone: Platelets bldon 07-19-2021 Platelets (Bld) [#/Vol] 193 10*3/uL 150-450 [facility] Work Phone: Absolute lymphocyte counton 07-12-2021 Lymphocytes Auto (Unsp spec) [#/Vol] 1.42 10*3/uL 0.83-4.51 [facility] Work Phone: Basophil percentageon 2021 Basophils/100 WBC (Bld) 0.6 % 0-1 [facility] Work Phone: Eosinophils/100 WBC (Bld) 0.3 % 0-5 [facility] Work Phone: Neutrophils (Bld) [#/Vol] 4.7 10*3/uL 2.0-7.7 [facility] Work Phone: Neutrophils/100 WBC (Bld) 67.3 % 47-70 [facility] Work Phone: WBC (Bld) [#/Vol] 7.0 10*3/uL 4.4-11.0 [facility] Work Phone: Blood erythrocytes count (nu mber/volume)on 07-12-2021 RBC (Bld) [#/Vol] 4.61 10*6/uL 4.6-6.2 [facility] Work [facility]: Blood hemoglobin measurement (mass/volume)on 07-12-2021 Hemoglobin (Bld) [Mass/Vol] 14.4 g/dL 13.0-16.5 [facility] Work Phone: Blood lymphocytes/100 leukoc yteson 07-12-2021 Lymphocytes/100 WBC (Bld) 20.4 % 19-41 [facility] Work Phone: Blood monocytes/100 leukocyt eson 07-12-2021 Monocytes/100 WBC (Bld) 11.1 % 0-10 [facility] Work Phone: Blood platelet mean volumeon 07-12-2021 Platelet mean volume (Bld) [Entitic vol] 11.2 fL 6.2-12.0 [facility] Work Phone: Determination of erythrocyte mean corpuscular volume (MCV)on 07-12-2021 MCV (RBC) [Entitic vol] 91.1 fL 80-94 [facility] Work Phone: Hematocrit Auto (Bld) [Volum e fraction]on 07-12-2021 Hematocrit (Bld) [Volume fraction] 42.0 % 40-54 [facility] Work Phone: Laboratory - Hematology and Cell countson 07-12-2021 Erythrocyte distribution width (RBC) [Entitic vol] 41.4 fL 35.1-43.9 [facility] Work Phone: Erythrocyte distribution width (RBC) [Ratio] 12.6 % 11.6-14.6 [facility] Work Phone: Immature granulocytes/100 WBC (Bld) 0.300 % 0.0-0.9 [facility] Work Phone: Comment on above: IG% - Immature Granu locytes (promyelocytes, myelocytes and metamyelocytes) > 1% indicates that a LEFT SHIFT is Present. MCH (RBC) [Entitic mass] 31.2 pg 27.0-32.0 [facility] Work Phone: Nucleated RBC/100 WBC (Bld) [Ratio] 0 % 0-5 [facility] Work Phone: MCHC Auto (RBC) [Mass/Vol]on 07-12-2021 MCHC (RBC) [Mass/Vol] 34.3 g/dL 32-36 [facility] Work Phone: Platelets bldon 07-12-2021 Platelets (Bld) [#/Vol] 184 10*3/uL 150-450 [facility] Work Phone: Absolute lymphocyte counton 07-05-2021 Lymphocytes Auto (Unsp spec) [#/Vol] 1.55 10*3/uL 0.83-4.51 [facility] Work Phone: Basophil percentageon 2021 Basophils/100 WBC (Bld) 0.4 % 0-1 [facility] Work Phone: Cholesterol [Mass/Vol] 148 mg/dL <200 [facility] Work Phone: Comment on above: <200 mg/dL Desirable 200-240 mg/dL Borderline >240 mg/dL High Risk Eosinophils/100 WBC (Bld) 0.3 % 0-5 [facility] Work Phone: Neutrophils (Bld) [#/Vol] 5.5 10*3/uL 2.0-7.7 [facility] Work Phone: Neutrophils/100 WBC (Bld) 70.9 % 47-70 [facility] Work Phone: Triglyceride [Mass/Vol] 201 mg/dL <199 [facility] Work Phone: Comment on above: The drugs N-Acetylcy steine and Metamizole may falsely depress this assay.Serum Triglycerides Reference Interval Normal <150 mg/dL Borderline high 150 - 199 mg/dL High 200 - 499 mg/dL Very High > or = 500 mg/dL WBC (Bld) [#/Vol] 7.8 10*3/uL 4.4-11.0 [facility] Work Phone: Blood erythrocytes count (nu mber/volume)on 07-05-2021 RBC (Bld) [#/Vol] 4.46 10*6/uL 4.6-6.2 [facility] Work Phone: Blood hemoglobin measurement (mass/volume)on 07-05-2021 Hemoglobin (Bld) [Mass/Vol] 13.4 g/dL 13.0-16.5 [facility] Work Phone: Blood lymphocytes/100 leukoc yteson 07-05-2021 Lymphocytes/100 WBC (Bld) 20.0 % 19-41 [facility] Work Phone: Blood monocytes/100 leukocyt eson 07-05-2021 Monocytes/100 WBC (Bld) 8.1 % 0-10 [facility] Work Phone: Blood platelet mean volumeon 07-05-2021 Platelet mean volume (Bld) [Entitic vol] 11.7 fL 6.2-12.0 [facility] Work Phone: Determination of erythrocyte mean corpuscular volume (MCV)on 07-05-2021 MCV (RBC) [Entitic vol] 91.0 fL 80-94 [facility] Work Phone: Hematocrit Auto (Bld) [Volum e fraction]on 07-05-2021 Hematocrit (Bld) [Volume fraction] 40.6 % 40-54 [facility] Work Phone: Laboratory - Hematology and Cell countson 07-05-2021 Erythrocyte distribution width (RBC) [Entitic vol] 41.9 fL 35.1-43.9 [facility] Work Phone: Erythrocyte distribution width (RBC) [Ratio] 12.8 % 11.6-14.6 [facility] Work Phone: Immature granulocytes/100 WBC (Bld) 0.300 % 0.0-0.9 [facility] Work Phone: Comment on above: IG% - Immature Granu locytes (promyelocytes, myelocytes and metamyelocytes) > 1% indicates that a LEFT SHIFT is Present. MCH (RBC) [Entitic mass] 30.0 pg 27.0-32.0 [facility] Work Phone: Nucleated RBC/100 WBC (Bld) [Ratio] 0 % 0-5 [facility] Work Phone: MCHC Auto (RBC) [Mass/Vol]on 07-05-2021 MCHC (RBC) [Mass/Vol] 33.0 g/dL 32-36 [facility] Work Phone: Platelets bldon 07-05-2021 Platelets (Bld) [#/Vol] 186 10*3/uL 150-450 [facility] Work Phone: Serum or plasma cholesterol in HDL measurement (mass/volume)on 07-05-2021 Cholesterol in HDL [Mass/Vol] 30 mg/dL >40 [facility] Work Phone: Comment on above: The drugs N-Acetylcy steine and Metamizole may falsely depress this assay. Reference Range HDL <40 mg/dL Low HDL Cholesterol HDL >or= 60 mg/dL High HDL Cholesterol Serum or plasma cholesterol in VLDL measurement (mass/volume)on 07-05-2021 Cholesterol in VLDL [Mass/Vol] 40 mg/dL 5-40 [facility] Work Phone: Serum or plasma low density lipoprotein (LDL) cholesterol measurement (mass/volume)on 07-05-2021 Cholesterol in LDL [Mass/Vol] 78 mg/dL 0-130 [facility] Work Phone: Absolute lymphocyte counton 06-28-2021 Lymphocytes Auto (Unsp spec) [#/Vol] 2.01 10*3/uL 0.83-4.51 [facility] Work Phone: Basophil percentageon 2021 Basophils/100 WBC (Bld) 0.5 % 0-1 [facility] Work Phone: Eosinophils/100 WBC (Bld) 0.3 % 0-5 [facility] Work Phone: Neutrophils (Bld) [#/Vol] 3.3 10*3/uL 2.0-7.7 [facility] Work Phone: Neutrophils/100 WBC (Bld) 55.5 % 47-70 [facility] Work Phone: WBC (Bld) [#/Vol] 6.0 10*3/uL 4.4-11.0 [facility] Work Phone: Blood erythrocytes count (nu mber/volume)on 06-28-2021 RBC (Bld) [#/Vol] 4.32 10*6/uL 4.6-6.2 [facility] Work Phone: Blood hemoglobin measurement (mass/volume)on 06-28-2021 Hemoglobin (Bld) [Mass/Vol] 13.5 g/dL 13.0-16.5 [facility] Work Phone: Blood lymphocytes/100 leukoc yteson 06-28-2021 Lymphocytes/100 WBC (Bld) 33.5 % 19-41 [facility] Work Phone: Blood monocytes/100 leukocyt eson 06-28-2021 Monocytes/100 WBC (Bld) 10.0 % 0-10 [facility] Work Phone: Blood platelet mean volumeon 06-28-2021 Platelet mean volume (Bld) [Entitic vol] 11.8 fL 6.2-12.0 [facility] Work Phone: Determination of erythrocyte mean corpuscular volume (MCV)on 06-28-2021 MCV (RBC) [Entitic vol] 89.8 fL 80-94 [facility] Work Phone: Hematocrit Auto (Bld) [Volum e fraction]on 06-28-2021 Hematocrit (Bld) [Volume fraction] 38.8 % 40-54 [facility] Work Phone: Laboratory - Hematology and Cell countson 06-28-2021 Erythrocyte distribution width (RBC) [Entitic vol] 40.6 fL 35.1-43.9 [facility] Work Phone: Erythrocyte distribution width (RBC) [Ratio] 12.5 % 11.6-14.6 [facility] Work Phone: Immature granulocytes/100 WBC (Bld) 0.200 % 0.0-0.9 [facility] Work Phone: Comment on above: IG% - Immature Granu locytes (promyelocytes, myelocytes and metamyelocytes) > 1% indicates that a LEFT SHIFT is Present. MCH (RBC) [Entitic mass] 31.3 pg 27.0-32.0 [facility] Work Phone: Nucleated RBC/100 WBC (Bld) [Ratio] 0 % 0-5 [facility] Work Phone: MCHC Auto (RBC) [Mass/Vol]on 06-28-2021 MCHC (RBC) [Mass/Vol] 34.8 g/dL 32-36 [facility] Work Phone: Platelets bldon 06-28-2021 Platelets (Bld) [#/Vol] 185 10*3/uL 150-450 [facility] Work Phone: [phone] Absolute lymphocyte counton 06-21-2021 Lymphocytes Auto (Unsp spec) [#/Vol] 1.78 10*3/uL 0.83-4.51 [facility] Work Phone: Basophil percentageon 2021 Basophils/100 WBC (Bld) 0.3 % 0-1 [facility] Work Phone: [phone] Eosinophils/100 WBC (Bld) 0.4 % 0-5 [facility] Work Phone: Neutrophils (Bld) [#/Vol] 4.2 10*3/uL 2.0-7.7 [facility] Work Phone: Neutrophils/100 WBC (Bld) 62.7 % 47-70 [facility] Work Phone: [phone] WBC (Bld) [#/Vol] 6.8 10*3/uL 4.4-11.0 [facility] Work Phone: Blood erythrocytes count (nu mber/volume)on 06-21-2021 RBC (Bld) [#/Vol] 4.21 10*6/uL 4.6-6.2 [facility]: [phone] Blood hemoglobin measurement (mass/volume)on 06-21-2021 Hemoglobin (Bld) [Mass/Vol] 13.3 g/dL 13.0-16.5 [facility] Work Phone: [phone] Blood lymphocytes/100 leukoc yteson 06-21-2021 Lymphocytes/100 WBC (Bld) 26.3 % 19-41 [facility] Work Phone: Blood monocytes/100 leukocyt eson 06-21-2021 Monocytes/100 WBC (Bld) 9.9 % 0-10 [facility] Work Phone: Blood platelet mean volumeon 06-21-2021 Platelet mean volume (Bld) [Entitic vol] 11.5 fL 6.2-12.0 [facility] Work Phone: Determination of erythrocyte mean corpuscular volume (MCV)on 06-21-2021 MCV (RBC) [Entitic vol] 91.0 fL 80-94 [facility] Work Phone: Hematocrit Auto (Bld) [Volum e fraction]on 06-21-2021 Hematocrit (Bld) [Volume fraction] 38.3 % 40-54 [facility] Work Phone: Laboratory - Hematology and Cell countson 06-21-2021 Erythrocyte distribution width (RBC) [Entitic vol] 40.2 fL 35.1-43.9 [facility] Work Phone: Erythrocyte distribution width (RBC) [Ratio] 12.2 % 11.6-14.6 [facility] Work Phone: Immature granulocytes/100 WBC (Bld) 0.400 % 0.0-0.9 [facility] Work Phone: Comment on above: IG% - Immature Granu locytes (promyelocytes, myelocytes and metamyelocytes) > 1% indicates that a LEFT SHIFT is Present. MCH (RBC) [Entitic mass] 31.6 pg 27.0-32.0 [facility] Work Phone: Nucleated RBC/100 WBC (Bld) [Ratio] 0 % 0-5 [facility] Work Phone: MCHC Auto (RBC) [Mass/Vol]on 06-21-2021 MCHC (RBC) [Mass/Vol] 34.7 g/dL 32-36 [facility] Work Phone: Platelets bldon 06-21-2021 Platelets (Bld) [#/Vol] 217 10*3/uL 150-450 [facility] Work Phone: Absolute lymphocyte counton 06-14-2021 Lymphocytes Auto (Unsp spec) [#/Vol] 1.41 10*3/uL 0.83-4.51 [facility] Work Phone: Basophil percentageon 2021 Basophils/100 WBC (Bld) 0.4 % 0-1 [facility] Work Phone: [phone] Chloride [Moles/Vol] 106 mmol/L 98-107 [facility] Work [facility]: [phone] Eosinophils/100 WBC (Bld) 0.6 % 0-5 [facility] Work Phone: Glucose [Mass/Vol] 121 mg/dL 74-106 [facility] Work Phone: Comment on above: Fasting Glucose resu lt from 100 to 125 mg/dL suggests IMPAIRED HOMEOSTASIS per A.D.A. criteria. Neutrophils (Bld) [#/Vol] 4.8 10*3/uL 2.0-7.7 [facility] Work Phone: Neutrophils/100 WBC (Bld) 69.9 % 47-70 [facility] Work Phone: Potassium [Moles/Vol] 3.7 mmol/L 3.5-5.1 [facility] Work Phone: Sodium [Moles/Vol] 140 mmol/L 136-145 [facility] Work Phone: WBC (Bld) [#/Vol] 6.8 10*3/uL 4.4-11.0 [facility] Work Phone: [phone] Blood erythrocytes count (nu mber/volume)on 06-14-2021 RBC (Bld) [#/Vol] 4.78 10*6/uL 4.6-6.2 [facility] Work Phone: Blood hemoglobin measurement (mass/volume)on 06-14-2021 Hemoglobin (Bld) [Mass/Vol] 14.9 g/dL 13.0-16.5 [facility] Work Phone: Blood lymphocytes/100 leukoc yteson 06-14-2021 Lymphocytes/100 WBC (Bld) 20.8 % 19-41 [facility] Work Phone: Blood monocytes/100 leukocyt eson 06-14-2021 Monocytes/100 WBC (Bld) 7.7 % 0-10 [facility] Work Phone: Blood platelet mean volumeon 06-14-2021 Platelet mean volume (Bld) [Entitic vol] 11.5 fL 6.2-12.0 [facility] Work Phone: Determination of erythrocyte mean corpuscular volume (MCV)on 06-14-2021 MCV (RBC) [Entitic vol] 89.5 fL 80-94 [facility] Work Phone: Hematocrit Auto (Bld) [Volum e fraction]on 06-14-2021 Hematocrit (Bld) [Volume fraction] 42.8 % 40-54 [facility] Work Phone: Laboratory - Chemistry and C hemistry - challengeon 06-14-2021 CO2 [Moles/Vol] 27.0 mmol/L 21.0-32.0 [facility] Work Phone: Urea nitrogen/Creatinine [Mass ratio] 35.0 mg/mg 10-20 [facility] Work Phone: Laboratory - Hematology and Cell countson 06-14-2021 Erythrocyte distribution width (RBC) [Entitic vol] 39.3 fL 35.1-43.9 [facility] Work Phone: Erythrocyte distribution width (RBC) [Ratio] 12.0 % 11.6-14.6 [facility] Work Phone: Immature granulocytes/100 WBC (Bld) 0.600 % 0.0-0.9 [facility] Work Phone: Comment on above: IG% - Immature Granu locytes (promyelocytes, myelocytes and metamyelocytes) > 1% indicates that a LEFT SHIFT is Present. MCH (RBC) [Entitic mass] 31.2 pg 27.0-32.0 [facility] Work Phone: Nucleated RBC/100 WBC (Bld) [Ratio] 0 % 0-5 [facility] Work Phone: MCHC Auto (RBC) [Mass/Vol]on 06-14-2021 MCHC (RBC) [Mass/Vol] 34.8 g/dL 32-36 [facility] Work Phone: No Panel Informationon 06-14 Estimated GFR (MDRD) Amer 185 mL/min >60 [facility] Work Phone: Comment on above: GFR Calc Estimated GFR (MDRD) Non-Af Amer 153 mL/min >60 [facility] Work Phone: Comment on above: Non- GFR Calc Platelets bldon 06-14-2021 Platelets (Bld) [#/Vol] 223 10*3/uL 150-450 [facility] Work Phone: Serum or plasma calcium gordy urement (mass/volume)on 06-14-2021 Calcium [Mass/Vol] 8.0 mg/dL 8.5-10.1 [facility] Work Phone: Serum or plasma creatinine m easurement (mass/volume)on 06-14-2021 Creatinine [Mass/Vol] 0.57 mg/dL 0.70-1.30 [facility] Work Phone: Comment on above: The validity of the calculated GFR & GFRAA in patients over 70 years has not been determined. Clinical correlation is essential. Serum or plasma urea nitroge n measurement (mass/volume)on 06-14-2021 Urea nitrogen [Mass/Vol] 20 mg/dL 7-18 [facility] Work Phone: Thin prep Papanicolaou smear with manual screeningon 06-14-2021 Thin prep Papanicolaou smear with manual screening 7 5-15 [facility] Work Phone: Absolute lymphocyte counton 06-07-2021 Lymphocytes Auto (Unsp spec) [#/Vol] 1.38 10*3/uL 0.83-4.51 [facility] Work Phone: Basophil percentageon 2021 Basophils/100 WBC (Bld) 0.2 % 0-1 [facility] Work Phone: [phone] Eosinophils/100 WBC (Bld) 0.0 % 0-5 [facility] Work Phone: Neutrophils (Bld) [#/Vol] 7.3 10*3/uL 2.0-7.7 [facility] Work Phone: Neutrophils/100 WBC (Bld) 75.3 % 47-70 [facility] Work Phone: WBC (Bld) [#/Vol] 9.7 10*3/uL 4.4-11.0 [facility]: Blood erythrocytes count (nu mber/volume)on 06-07-2021 RBC (Bld) [#/Vol] 4.48 10*6/uL 4.6-6.2 [facility] Work Phone: Blood hemoglobin measurement (mass/volume)on 06-07-2021 Hemoglobin (Bld) [Mass/Vol] 13.8 g/dL 13.0-16.5 [facility] Work Phone: [phone] Blood lymphocytes/100 leukoc yteson 06-07-2021 Lymphocytes/100 WBC (Bld) 14.2 % 19-41 [facility] Work Phone: Blood monocytes/100 leukocyt eson 06-07-2021 Monocytes/100 WBC (Bld) 10.2 % 0-10 [facility] Work Phone: Blood platelet mean volumeon 06-07-2021 Platelet mean volume (Bld) [Entitic vol] 11.9 fL 6.2-12.0 [facility] Work Phone: Determination of erythrocyte mean corpuscular volume (MCV)on 06-07-2021 MCV (RBC) [Entitic vol] 92.9 fL 80-94 [facility] Work Phone: Hematocrit Auto (Bld) [Volum e fraction]on 06-07-2021 Hematocrit (Bld) [Volume fraction] 41.6 % 40-54 [facility] Work Phone: Laboratory - Hematology and Cell countson 06-07-2021 Erythrocyte distribution width (RBC) [Entitic vol] 43.8 fL 35.1-43.9 [facility] Work Phone: Erythrocyte distribution width (RBC) [Ratio] 12.8 % 11.6-14.6 [facility] Work Phone: Immature granulocytes/100 WBC (Bld) 0.100 % 0.0-0.9 [facility] Work Phone: Comment on above: IG% - Immature Granu locytes (promyelocytes, myelocytes and metamyelocytes) > 1% indicates that a LEFT SHIFT is Present. MCH (RBC) [Entitic mass] 30.8 pg 27.0-32.0 [facility] Work Phone: Nucleated RBC/100 WBC (Bld) [Ratio] 0 % 0-5 [facility] Work Phone: MCHC Auto (RBC) [Mass/Vol]on 06-07-2021 MCHC (RBC) [Mass/Vol] 33.2 g/dL 32-36 [facility] Work Phone: Platelets bldon 06-07-2021 Platelets (Bld) [#/Vol] 152 10*3/uL 150-450 [facility] Work Phone: Absolute lymphocyte counton 05-31-2021 Lymphocytes Auto (Unsp spec) [#/Vol] 1.72 10*3/uL 0.83-4.51 [facility] Work Phone: [phone] Basophil percentageon 2021 Basophils/100 WBC (Bld) 0.7 % 0-1 [facility] Work Phone: Eosinophils/100 WBC (Bld) 1.1 % 0-5 [facility] Work Phone: Neutrophils (Bld) [#/Vol] 3.3 10*3/uL 2.0-7.7 [facility] Work Phone: Neutrophils/100 WBC (Bld) 58.5 % 47-70 [facility] Work Phone: WBC (Bld) [#/Vol] 5.6 10*3/uL 4.4-11.0 [facility] Work [facility]: Blood erythrocytes count (nu mber/volume)on 05-31-2021 RBC (Bld) [#/Vol] 4.44 10*6/uL 4.6-6.2 [facility] Work Phone: Blood hemoglobin measurement (mass/volume)on 05-31-2021 Hemoglobin (Bld) [Mass/Vol] 13.6 g/dL 13.0-16.5 [facility] Work Phone: Blood lymphocytes/100 leukoc yteson 05-31-2021 Lymphocytes/100 WBC (Bld) 30.7 % 19-41 [facility] Work Phone: [phone] Blood monocytes/100 leukocyt eson 05-31-2021 Monocytes/100 WBC (Bld) 8.6 % 0-10 [facility] Work Phone: Blood platelet mean volumeon 05-31-2021 Platelet mean volume (Bld) [Entitic vol] 11.2 fL 6.2-12.0 [facility] Work Phone: Determination of erythrocyte mean corpuscular volume (MCV)on 05-31-2021 MCV (RBC) [Entitic vol] 92.1 fL 80-94 [facility] Work Phone: Hematocrit Auto (Bld) [Volum e fraction]on 05-31-2021 Hematocrit (Bld) [Volume fraction] 40.9 % 40-54 [facility] Work Phone: Laboratory - Hematology and Cell countson 05-31-2021 Erythrocyte distribution width (RBC) [Entitic vol] 42.2 fL 35.1-43.9 [facility] Work Phone: Erythrocyte distribution width (RBC) [Ratio] 12.4 % 11.6-14.6 [facility] Work Phone: Immature granulocytes/100 WBC (Bld) 0.400 % 0.0-0.9 [facility] Work Phone: Comment on above: IG% - Immature Granu locytes (promyelocytes, myelocytes and metamyelocytes) > 1% indicates that a LEFT SHIFT is Present. MCH (RBC) [Entitic mass] 30.6 pg 27.0-32.0 [facility] Work Phone: Nucleated RBC/100 WBC (Bld) [Ratio] 0 % 0-5 [facility] Work Phone: MCHC Auto (RBC) [Mass/Vol]on 05-31-2021 MCHC (RBC) [Mass/Vol] 33.3 g/dL 32-36 [facility] Work Phone: Platelets bldon 05-31-2021 Platelets (Bld) [#/Vol] 189 10*3/uL 150-450 [facility] Work Phone: Absolute lymphocyte counton 05-24-2021 Lymphocytes Auto (Unsp spec) [#/Vol] 1.58 10*3/uL 0.83-4.51 [facility] Work Phone: [phone] Basophil percentageon 2021 Basophils/100 WBC (Bld) 0.8 % 0-1 [facility] Work Phone: Eosinophils/100 WBC (Bld) 2.4 % 0-5 [facility] Work Phone: Neutrophils (Bld) [#/Vol] 3.8 10*3/uL 2.0-7.7 [facility] Work Phone: Neutrophils/100 WBC (Bld) 60.3 % 47-70 [facility] Work Phone: WBC (Bld) [#/Vol] 6.3 10*3/uL 4.4-11.0 [facility] Work Phone: Blood erythrocytes count (nu mber/volume)on 05-24-2021 RBC (Bld) [#/Vol] 4.50 10*6/uL 4.6-6.2 [facility] Work Phone: Blood hemoglobin measurement (mass/volume)on 05-24-2021 Hemoglobin (Bld) [Mass/Vol] 13.7 g/dL 13.0-16.5 [facility] Work Phone: Blood lymphocytes/100 leukoc yteson 05-24-2021 Lymphocytes/100 WBC (Bld) 25.0 % 19-41 [facility] Work Phone: Blood monocytes/100 leukocyt eson 05-24-2021 Monocytes/100 WBC (Bld) 11.2 % 0-10 [facility] Work Phone: Blood platelet mean volumeon 05-24-2021 Platelet mean volume (Bld) [Entitic vol] 11.3 fL 6.2-12.0 [facility] Work Phone: Determination of erythrocyte mean corpuscular volume (MCV)on 05-24-2021 MCV (RBC) [Entitic vol] 92.9 fL 80-94 [facility] Work Phone: Hematocrit Auto (Bld) [Volum e fraction]on 05-24-2021 Hematocrit (Bld) [Volume fraction] 41.8 % 40-54 [facility] Work Phone: Laboratory - Hematology and Cell countson 05-24-2021 Erythrocyte distribution width (RBC) [Entitic vol] 42.8 fL 35.1-43.9 [facility] Work Phone: Erythrocyte distribution width (RBC) [Ratio] 12.6 % 11.6-14.6 [facility] Work Phone: Immature granulocytes/100 WBC (Bld) 0.300 % 0.0-0.9 [facility] Work Phone: Comment on above: IG% - Immature Granu locytes (promyelocytes, myelocytes and metamyelocytes) > 1% indicates that a LEFT SHIFT is Present. MCH (RBC) [Entitic mass] 30.4 pg 27.0-32.0 [facility] Work Phone: [phone] Nucleated RBC/100 WBC (Bld) [Ratio] 0 % 0-5 [facility] Work Phone: [phone] MCHC Auto (RBC) [Mass/Vol]on 05-24-2021 MCHC (RBC) [Mass/Vol] 32.8 g/dL 32-36 [facility] Work Phone: [phone] Platelets bldon 05-24-2021 Platelets (Bld) [#/Vol] 207 10*3/uL 150-450 [facility] Work Phone: Absolute lymphocyte counton 05-17-2021 Lymphocytes Auto (Unsp spec) [#/Vol] 1.59 10*3/uL 0.83-4.51 [facility] Work Phone: Basophil percentageon 2021 Basophils/100 WBC (Bld) 0.7 % 0-1 [facility] Work Phone: Eosinophils/100 WBC (Bld) 1.7 % 0-5 [facility] Work Phone: Neutrophils (Bld) [#/Vol] 3.5 10*3/uL 2.0-7.7 [facility] Work Phone: Neutrophils/100 WBC (Bld) 59.5 % 47-70 [facility] Work Phone: WBC (Bld) [#/Vol] 5.9 10*3/uL 4.4-11.0 [facility] Work Phone: Blood erythrocytes count (nu mber/volume)on 05-17-2021 RBC (Bld) [#/Vol] 4.35 10*6/uL 4.6-6.2 [facility] Work Phone: Blood hemoglobin measurement (mass/volume)on 05-17-2021 Hemoglobin (Bld) [Mass/Vol] 13.4 g/dL 13.0-16.5 [facility] Work Phone: Blood lymphocytes/100 leukoc yteson 05-17-2021 Lymphocytes/100 WBC (Bld) 26.9 % 19-41 [facility] Work Phone: Blood monocytes/100 leukocyt eson 05-17-2021 Monocytes/100 WBC (Bld) 11.0 % 0-10 [facility] Work Phone: Blood platelet mean volumeon 05-17-2021 Platelet mean volume (Bld) [Entitic vol] 11.5 fL 6.2-12.0 [facility] Work Phone: Determination of erythrocyte mean corpuscular volume (MCV)on 05-17-2021 MCV (RBC) [Entitic vol] 92.9 fL 80-94 [facility] Work Phone: Hematocrit Auto (Bld) [Volum e fraction]on 05-17-2021 Hematocrit (Bld) [Volume fraction] 40.4 % 40-54 [facility] Work Phone: Laboratory - Hematology and Cell countson 05-17-2021 Erythrocyte distribution width (RBC) [Entitic vol] 43.4 fL 35.1-43.9 [facility] Work Phone: Erythrocyte distribution width (RBC) [Ratio] 12.7 % 11.6-14.6 [facility] Work Phone: Immature granulocytes/100 WBC (Bld) 0.200 % 0.0-0.9 [facility] Work Phone: Comment on above: IG% - Immature Granu locytes (promyelocytes, myelocytes and metamyelocytes) > 1% indicates that a LEFT SHIFT is Present. MCH (RBC) [Entitic mass] 30.8 pg 27.0-32.0 [facility] Work Phone: Nucleated RBC/100 WBC (Bld) [Ratio] 0 % 0-5 [facility] Work Phone: MCHC Auto (RBC) [Mass/Vol]on 05-17-2021 MCHC (RBC) [Mass/Vol] 33.2 g/dL 32-36 [facility] Work Phone: Platelets bldon 05-17-2021 Platelets (Bld) [#/Vol] 171 10*3/uL 150-450 [facility] Work Phone: ED Provider Noteon 2 ED Provider Note Emergency Department Encounter [facility] ED Patient: Kathya Hooper : 1955 [...] no auscultated abdominal bruits, no peritoneal signs. Ospnia and PEG tube orifice. PEG tube site [...] [employer] Timothy Burton DO 05/15/21 1530 Normal [facility] ED [facility] eMERGENCY dEPARTMENT eNCOUnter Pt Name: Kathya [...] of [place] (more content not included)... Normal [facility] Basophil percentageon 2021 Chloride [Moles/Vol] 105 mmol/L 98-107 [facility] Work Phone: Glucose [Mass/Vol] 96 mg/dL 74-106 [facility] Work Phone: Potassium [Moles/Vol] 3.5 mmol/L 3.5-5.1 [facility] Work Phone: Sodium [Moles/Vol] 141 mmol/L 136-145 [facility] Work Phone: Laboratory - Chemistry and C hemistry - challengeon 05-14-2021 CO2 [Moles/Vol] 30.0 mmol/L 21.0-32.0 [facility] Work Phone: Urea nitrogen/Creatinine [Mass ratio] 39.2 mg/mg 10-20 [facility] Work Phone: No Panel Informationon 05-14 Estimated GFR (MDRD) Amer 210 mL/min >60 [facility] Work Phone: Comment on above: GFR Calc Estimated GFR (MDRD) Non-Af Amer 174 mL/min >60 [facility] Work Phone: Comment on above: Non- GFR Calc Serum or plasma calcium gordy urement (mass/volume)on 05-14-2021 Calcium [Mass/Vol] 8.4 mg/dL 8.5-10.1 [facility] Work Phone: Serum or plasma creatinine m easurement (mass/volume)on 05-14-2021 Creatinine [Mass/Vol] 0.51 mg/dL 0.70-1.30 [facility] Work Phone: Comment on above: The validity of the calculated GFR & GFRAA in patients over 70 years has not been determined. Clinical correlation is essential. Serum or plasma urea nitroge n measurement (mass/volume)on 05-14-2021 Urea nitrogen [Mass/Vol] 20 mg/dL 7-18 [facility] Work Phone: Thin prep Papanicolaou smear with manual screeningon 05-14-2021 Thin prep Papanicolaou smear with manual screening 6 5-15 [facility] Work Phone: Absolute lymphocyte counton 05-10-2021 Lymphocytes Auto (Unsp spec) [#/Vol] 1.65 10*3/uL 0.83-4.51 [facility] Work Phone: Basophil percentageon 2021 Basophils/100 WBC (Bld) 0.5 % 0-1 [facility] Work Phone: Eosinophils/100 WBC (Bld) 0.7 % 0-5 [facility] Work Phone: Neutrophils (Bld) [#/Vol] 5.6 10*3/uL 2.0-7.7 [facility] Work Phone: Neutrophils/100 WBC (Bld) 69.5 % 47-70 [facility] Work Phone: WBC (Bld) [#/Vol] 8.1 10*3/uL 4.4-11.0 [facility] Work Phone: Blood erythrocytes count (nu mber/volume)on 05-10-2021 RBC (Bld) [#/Vol] 4.52 10*6/uL 4.6-6.2 [facility] Work Phone: Blood hemoglobin measurement (mass/volume)on 05-10-2021 Hemoglobin (Bld) [Mass/Vol] 13.8 g/dL 13.0-16.5 [facility] Work Phone: Blood lymphocytes/100 leukoc yteson 05-10-2021 Lymphocytes/100 WBC (Bld) 20.4 % 19-41 [facility] Work Phone: Blood monocytes/100 leukocyt eson 05-10-2021 Monocytes/100 WBC (Bld) 8.4 % 0-10 [facility] Work Phone: Blood platelet mean volumeon 05-10-2021 Platelet mean volume (Bld) [Entitic vol] 11.3 fL 6.2-12.0 [facility] Work Phone: Determination of erythrocyte mean corpuscular volume (MCV)on 05-10-2021 MCV (RBC) [Entitic vol] 91.8 fL 80-94 [facility] Work Phone: Hematocrit Auto (Bld) [Volum e fraction]on 05-10-2021 Hematocrit (Bld) [Volume fraction] 41.5 % 40-54 [facility] Work Phone: Laboratory - Hematology and Cell countson 05-10-2021 Erythrocyte distribution width (RBC) [Entitic vol] 42.9 fL 35.1-43.9 [facility] Work Phone: Erythrocyte distribution width (RBC) [Ratio] 12.8 % 11.6-14.6 [facility] Work Phone: Immature granulocytes/100 WBC (Bld) 0.500 % 0.0-0.9 [facility] Work Phone: Comment on above: IG% - Immature Granu locytes (promyelocytes, myelocytes and metamyelocytes) > 1% indicates that a LEFT SHIFT is Present. MCH (RBC) [Entitic mass] 30.5 pg 27.0-32.0 [facility] Work Phone: Nucleated RBC/100 WBC (Bld) [Ratio] 0 % 0-5 [facility] Work Phone: MCHC Auto (RBC) [Mass/Vol]on 01-10-2022 MCHC (RBC) [Mass/Vol] 33.3 g/dL 32-36 [facility] Work Phone: Platelets bldon 05-10-2021 Platelets (Bld) [#/Vol] 191 10*3/uL 150-450 [facility] Work Phone: [phone] Absolute lymphocyte counton 05-03-2021 Lymphocytes Auto (Unsp spec) [#/Vol] 1.69 10*3/uL 0.83-4.51 [facility] Work Phone: Basophil percentageon 2021 Basophils/100 WBC (Bld) 0.6 % 0-1 [facility] Work Phone: Eosinophils/100 WBC (Bld) 0.7 % 0-5 [facility] Work Phone: Neutrophils (Bld) [#/Vol] 4.6 10*3/uL 2.0-7.7 [facility] Work Phone: Neutrophils/100 WBC (Bld) 64.4 % 47-70 [facility] Work Phone: WBC (Bld) [#/Vol] 7.2 10*3/uL 4.4-11.0 [facility] Work Phone: Blood erythrocytes count (nu mber/volume)on 05-03-2021 RBC (Bld) [#/Vol] 4.55 10*6/uL 4.6-6.2 [facility] Work Phone: Blood hemoglobin measurement (mass/volume)on 05-03-2021 Hemoglobin (Bld) [Mass/Vol] 14.0 g/dL 13.0-16.5 [facility] Work Phone: Blood lymphocytes/100 leukoc yteson 05-03-2021 Lymphocytes/100 WBC (Bld) 23.6 % 19-41 [facility] Work Phone: [phone] Blood monocytes/100 leukocyt eson 05-03-2021 Monocytes/100 WBC (Bld) 10.3 % 0-10 [facility] Work Phone: Blood platelet mean volumeon 05-03-2021 Platelet mean volume (Bld) [Entitic vol] 11.7 fL 6.2-12.0 [facility] Work Phone: Determination of erythrocyte mean corpuscular volume (MCV)on 05-03-2021 MCV (RBC) [Entitic vol] 93.2 fL 80-94 [facility] Work Phone: Hematocrit Auto (Bld) [Volum e fraction]on 05-03-2021 Hematocrit (Bld) [Volume fraction] 42.4 % 40-54 [facility] Work Phone: Laboratory - Hematology and Cell countson 05-03-2021 Erythrocyte distribution width (RBC) [Entitic vol] 44.2 fL 35.1-43.9 [facility] Work Phone: Erythrocyte distribution width (RBC) [Ratio] 13.1 % 11.6-14.6 [facility] Work Phone: Immature granulocytes/100 WBC (Bld) 0.400 % 0.0-0.9 [facility] Work Phone: Comment on above: IG% - Immature Granu locytes (promyelocytes, myelocytes and metamyelocytes) > 1% indicates that a LEFT SHIFT is Present. MCH (RBC) [Entitic mass] 30.8 pg 27.0-32.0 [facility] Work Phone: Nucleated RBC/100 WBC (Bld) [Ratio] 0 % 0-5 [facility] Work Phone: MCHC Auto (RBC) [Mass/Vol]on 05-03-2021 MCHC (RBC) [Mass/Vol] 33.0 g/dL 32-36 [facility] Work Phone: Platelets bldon 05-03-2021 Platelets (Bld) [#/Vol] 175 10*3/uL 150-450 [facility] Work Phone: Absolute lymphocyte counton 04-26-2021 Lymphocytes Auto (Unsp spec) [#/Vol] 1.68 10*3/uL 0.83-4.51 [facility] Work Phone: Basophil percentageon 2020 Eosinophils/100 WBC (Bld) 1.1 % 0-5 [facility] Work Phone: Neutrophils (Bld) [#/Vol] 4.5 10*3/uL 2.0-7.7 [facility] Work Phone: WBC (Bld) [#/Vol] 7.2 10*3/uL 4.4-11.0 [facility] Work Phone: Blood erythrocytes count (nu mber/volume)on 04-26-2021 RBC (Bld) [#/Vol] 4.32 10*6/uL 4.6-6.2 [facility]: Blood hemoglobin measurement (mass/volume)on 04-26-2021 Hemoglobin (Bld) [Mass/Vol] 13.5 g/dL 13.0-16.5 [facility] Work Phone: Blood lymphocytes/100 leukoc yteson 04-26-2021 Lymphocytes/100 WBC (Bld) 23.5 % 19-41 [facility] Work Phone: Blood monocytes/100 leukocyt eson 04-26-2021 Monocytes/100 WBC (Bld) 11.0 % 0-10 [facility] Work Phone: Blood platelet mean volumeon 04-26-2021 Platelet mean volume (Bld) [Entitic vol] 11.0 fL 6.2-12.0 [facility] Work Phone: Determination of erythrocyte mean corpuscular volume (MCV)on 04-26-2021 MCV (RBC) [Entitic vol] 93.3 fL 80-94 [facility] Work Phone: Hematocrit Auto (Bld) [Volum e fraction]on 04-26-2021 Hematocrit (Bld) [Volume fraction] 40.3 % 40-54 [facility] Work Phone: Laboratory - Hematology and Cell countson 04-26-2021 Basophils/100 WBC (Unsp spec) 0.6 % 0-1 [facility] Work Phone: [phone] Erythrocyte distribution width (RBC) [Entitic vol] 45.8 fL 35.1-43.9 [facility] Work Phone: [phone] Erythrocyte distribution width (RBC) [Ratio] 13.2 % 11.6-14.6 [facility] Work Phone: [phone] Immature granulocytes/100 WBC (Bld) 0.600 % 0.0-0.9 [facility] Work Phone: [phone] Comment on above: IG% - Immature Granu locytes (promyelocytes, myelocytes and metamyelocytes) > 1% indicates that a LEFT SHIFT is Present. MCH (RBC) [Entitic mass] 31.3 pg 27.0-32.0 [facility] Work Phone: [phone] Neutrophils/100 WBC (Bld) 63.2 % 47-70 [facility] Work Phone: [phone] Nucleated RBC/100 WBC (Bld) [Ratio] 0 % 0-5 [facility] Work Phone: [phone] MCHC Auto (RBC) [Mass/Vol]on 04-26-2021 MCHC (RBC) [Mass/Vol] 33.5 g/dL 32-36 [facility] Work Phone: [phone] Platelets bldon 04-26-2021 Platelets (Bld) [#/Vol] 172 10*3/uL 150-450 [facility] Work Phone: [phone] Absolute lymphocyte counton 04-19-2021 Lymphocytes Auto (Unsp spec) [#/Vol] 1.31 10*3/uL 0.83-4.51 [facility] Work Phone: [phone] Basophil percentageon 2020 Eosinophils/100 WBC (Bld) 2.8 % 0-5 [facility] Work Phone: Neutrophils (Bld) [#/Vol] 3.0 10*3/uL 2.0-7.7 [facility] Work Phone: WBC (Bld) [#/Vol] 5.0 10*3/uL 4.4-11.0 [facility] Work Phone: Blood erythrocytes count (nu mber/volume)on 04-19-2021 RBC (Bld) [#/Vol] 4.26 10*6/uL 4.6-6.2 [facility] Work Phone: Blood hemoglobin measurement (mass/volume)on 04-19-2021 Hemoglobin (Bld) [Mass/Vol] 13.2 g/dL 13.0-16.5 [facility] Work Phone: Blood lymphocytes/100 leukoc yteson 04-19-2021 Lymphocytes/100 WBC (Bld) 26.1 % 19-41 [facility] Work Phone: Blood monocytes/100 leukocyt eson 04-19-2021 Monocytes/100 WBC (Bld) 10.0 % 0-10 [facility] Work Phone: Blood platelet mean volumeon 04-19-2021 Platelet mean volume (Bld) [Entitic vol] 10.9 fL 6.2-12.0 [facility] Work Phone: Determination of erythrocyte mean corpuscular volume (MCV)on 04-19-2021 MCV (RBC) [Entitic vol] 93.7 fL 80-94 [facility] Work Phone: Hematocrit Auto (Bld) [Volum e fraction]on 04-19-2021 Hematocrit (Bld) [Volume fraction] 39.9 % 40-54 [facility] Work Phone: Laboratory - Hematology and Cell countson 04-19-2021 Basophils/100 WBC (Unsp spec) 1.0 % 0-1 [facility] Work Phone: Erythrocyte distribution width (RBC) [Entitic vol] 46.7 fL 35.1-43.9 [facility] Work Phone: [phone] Erythrocyte distribution width (RBC) [Ratio] 13.7 % 11.6-14.6 [facility] Work Phone: [phone] Immature granulocytes/100 WBC (Bld) 0.400 % 0.0-0.9 [facility] Work Phone: [phone] Comment on above: IG% - Immature Granu locytes (promyelocytes, myelocytes and metamyelocytes) > 1% indicates that a LEFT SHIFT is Present. MCH (RBC) [Entitic mass] 31.0 pg 27.0-32.0 [facility] Work Phone: [phone] Neutrophils/100 WBC (Bld) 59.7 % 47-70 [facility] Work Phone: [phone] Nucleated RBC/100 WBC (Bld) [Ratio] 0 % 0-5 [facility] Work Phone: MCHC Auto (RBC) [Mass/Vol]on 04-19-2021 MCHC (RBC) [Mass/Vol] 33.1 g/dL 32-36 [facility] Work Phone: Platelets bldon 04-19-2021 Platelets (Bld) [#/Vol] 165 10*3/uL 150-450 [facility] Work Phone: [phone] Absolute lymphocyte counton 04-12-2021 Lymphocytes Auto (Unsp spec) [#/Vol] 1.41 10*3/uL 0.83-4.51 [facility] Work Phone: [phone] Basophil percentageon 2020 Bilirubin [Mass/Vol] 0.40 mg/dL 0.20-1.00 [facility] Work Phone: [phone] Comment on above: For patients on eltr ombopag therapy, use of Dimension [place] TBIL is not recommended. Eosinophils/100 WBC (Bld) 0.9 % 0-5 [facility] Work Phone: [phone] Neutrophils (Bld) [#/Vol] 3.4 10*3/uL 2.0-7.7 [facility] Work Phone: Protein [Mass/Vol] 5.7 g/dL 6.4-8.2 [facility] Work Phone: WBC (Bld) [#/Vol] 5.5 10*3/uL 4.4-11.0 [facility] Work Phone: Blood erythrocytes count (nu mber/volume)on 04-12-2021 RBC (Bld) [#/Vol] 4.09 10*6/uL 4.6-6.2 [facility] Work Phone: Blood hemoglobin measurement (mass/volume)on 04-12-2021 Hemoglobin (Bld) [Mass/Vol] 12.4 g/dL 13.0-16.5 [facility] Work Phone: Blood lymphocytes/100 leukoc yteson 04-12-2021 Lymphocytes/100 WBC (Bld) 25.9 % 19-41 [facility] Work Phone: Blood monocytes/100 leukocyt eson 04-12-2021 Monocytes/100 WBC (Bld) 9.2 % 0-10 [facility] Work Phone: Blood platelet mean volumeon 04-12-2021 Platelet mean volume (Bld) [Entitic vol] 11.1 fL 6.2-12.0 [facility] Work Phone: Determination of erythrocyte mean corpuscular volume (MCV)on 04-12-2021 MCV (RBC) [Entitic vol] 93.4 fL 80-94 [facility] Work Phone: Direct bilirubinon Bilirubin.direct [Mass/Vol] 0.08 mg/dL 0.00-0.30 [facility] Work Phone: Hematocrit Auto (Bld) [Volum e fraction]on 04-12-2021 Hematocrit (Bld) [Volume fraction] 38.2 % 40-54 [facility] Work Phone: Laboratory - Chemistry and C hemistry - challengeon 04-12-2021 ALP [Catalytic activity/Vol] 101 U/L 45-117 [facility] Work Phone: [phone] ALT [Catalytic activity/Vol] 30 U/L 16-61 [facility] Work Phone: [phone] Globulin (S) [Mass/Vol] 2.9 g/dL 2.2-4.2 [facility] Work Phone: Laboratory - Hematology and Cell countson 04-12-2021 Basophils/100 WBC (Unsp spec) 0.6 % 0-1 [facility] Work Phone: Erythrocyte distribution width (RBC) [Entitic vol] 46.7 fL 35.1-43.9 [facility] Work Phone: Erythrocyte distribution width (RBC) [Ratio] 13.7 % 11.6-14.6 [facility] Work Phone: Immature granulocytes/100 WBC (Bld) 0.400 % 0.0-0.9 [facility] Work Phone: [phone] Comment on above: IG% - Immature Granu locytes (promyelocytes, myelocytes and metamyelocytes) > 1% indicates that a LEFT SHIFT is Present. MCH (RBC) [Entitic mass] 30.3 pg 27.0-32.0 [facility] Work Phone: [phone] Neutrophils/100 WBC (Bld) 63.0 % 47-70 [facility] Work Phone: [phone] Nucleated RBC/100 WBC (Bld) [Ratio] 0 % 0-5 [facility] Work Phone: [phone] MCHC Auto (RBC) [Mass/Vol]on 04-12-2021 MCHC (RBC) [Mass/Vol] 32.5 g/dL 32-36 [facility] Work Phone: [phone] Platelets bldon 04-12-2021 Platelets (Bld) [#/Vol] 173 10*3/uL 150-450 [facility] Work Phone: Serum or plasma albumin gordy urement (mass/volume)on 04-12-2021 Albumin [Mass/Vol] 2.8 g/dL 3.2-5.0 [facility] Work Phone: Thin prep Papanicolaou smear with manual screeningon 04-12-2021 Thin prep Papanicolaou smear with manual screening 15 U/L 15-37 [facility] Work Phone: Absolute lymphocyte counton 04-07-2021 Lymphocytes Auto (Unsp spec) [#/Vol] 1.55 10*3/uL 0.83-4.51 [facility] Work Phone: Basophil percentageon 2020 Eosinophils/100 WBC (Bld) 0.7 % 0-5 [facility] Work Phone: Neutrophils (Bld) [#/Vol] 5.3 10*3/uL 2.0-7.7 [facility] Work Phone: WBC (Bld) [#/Vol] 8.1 10*3/uL 4.4-11.0 [facility] Work Phone: Blood erythrocytes count (nu mber/volume)on 04-07-2021 RBC (Bld) [#/Vol] 4.18 10*6/uL 4.6-6.2 [facility] Work Phone: Blood hemoglobin measurement (mass/volume)on 04-07-2021 Hemoglobin (Bld) [Mass/Vol] 12.9 g/dL 13.0-16.5 [facility] Work Phone: Blood lymphocytes/100 leukoc yteson 04-07-2021 Lymphocytes/100 WBC (Bld) 19.2 % 19-41 [facility] Work Phone: Blood monocytes/100 leukocyt eson 04-07-2021 Monocytes/100 WBC (Bld) 13.0 % 0-10 [facility] Work Phone: Blood platelet mean volumeon 04-07-2021 Platelet mean volume (Bld) [Entitic vol] 10.9 fL 6.2-12.0 [facility] Work Phone: Determination of erythrocyte mean corpuscular volume (MCV)on 04-07-2021 MCV (RBC) [Entitic vol] 92.6 fL 80-94 [facility] Work Phone: Hematocrit Auto (Bld) [Volum e fraction]on 04-07-2021 Hematocrit (Bld) [Volume fraction] 38.7 % 40-54 [facility] Work Phone: Laboratory - Hematology and Cell countson 04-07-2021 Basophils/100 WBC (Unsp spec) 0.6 % 0-1 [facility] Work Phone: Erythrocyte distribution width (RBC) [Entitic vol] 45.8 fL 35.1-43.9 [facility] Work Phone: Erythrocyte distribution width (RBC) [Ratio] 13.5 % 11.6-14.6 [facility] Work Phone: Immature granulocytes/100 WBC (Bld) 0.500 % 0.0-0.9 [facility] Work Phone: Comment on above: IG% - Immature Granu locytes (promyelocytes, myelocytes and metamyelocytes) > 1% indicates that a LEFT SHIFT is Present. MCH (RBC) [Entitic mass] 30.9 pg 27.0-32.0 [facility] Work Phone: Neutrophils/100 WBC (Bld) 66.0 % 47-70 [facility] Work Phone: Nucleated RBC/100 WBC (Bld) [Ratio] 0 % 0-5 [facility] Work Phone: MCHC Auto (RBC) [Mass/Vol]on 04-07-2021 MCHC (RBC) [Mass/Vol] 33.3 g/dL 32-36 [facility] Work Phone: Platelets bldon 04-07-2021 Platelets (Bld) [#/Vol] 210 10*3/uL 150-450 [facility] Work Phone: CULTURE BLOODon 03-25-2021 Microscopic examination of blood, culture CULTURE BLOOD --> Status: F No growth at 5 days. Normal [facility] Comment on above: Performed By: #### C /BLD ####[facility] [employer] [id number] [place], [place] CULTURE BLOOD (Two)on 2020 Microscopic examination of blood, culture CULTURE BLOOD (Two) --> Status: F No growth at 5 days. Normal [facility] Comment on above: Performed By: #### C /BLT ####[facility] [employer] [id number] [place], [place] Basic Metabolic Panelon 03-02 Calcium [Mass/Vol] 8.8 mg/dL Normal 8.4-10.4 [facility] Comment on above: Performed By: #### H MAYKEL BMP3 #### [facility] [address] [place] [address] Glucose [Mass/Vol] 103 mg/dL High 70-100 [facility] Comment on above: Performed By: #### H MAYKEL BMP3 #### [facility] [address] [place] [address] Anion gap [Moles/Vol] 5 mmol/L Normal 3-13 [facility] Comment on above: Performed By: #### H MAYKEL BMP3 #### [facility] [address] [place] [address] CO2 [Moles/Vol] 26 mmol/L Normal 22-30 [facility] Comment on above: Performed By: #### H EMDF BMP3 #### [facility] [address] [place] [address] Creatinine [Mass/Vol] 0.49 mg/dL Low 0.52-1.25 [facility] Comment on above: Performed By: #### H MAYKEL BMP3 #### [facility] [address] [place] [address] eGFR OTHER > 90.0 Normal >60 [facility] Comment on above: Result Comment: [...] Performed By: #### H MAYKEL BMP3 #### [facility] [address] [place] [address] GFR/1.73 sq M.predicted among blacks MDRD (S/P/Bld) [Vol rate/Area] mL/min/{1.73_m2} Normal >60 [facility] Comment on above: Performed By: #### H MAYKEL BMP3 #### [facility] [address] [place] [address] Urea nitrogen [Mass/Vol] 30 mg/dL High 7-17 [facility] Comment on above: Performed By: #### H MAYKEL BMP3 #### [facility] [address] [place] [address] Chloride [Moles/Vol] 112 mmol/L High 98-107 [facility] Comment on above: Performed By: #### H MAYKEL BMP3 #### [facility] [address] [place] [address] Potassium [Moles/Vol] 4.1 mmol/L Normal 3.5-5.1 [facility] Comment on above: Performed By: #### H MAYKEL BMP3 #### [facility] [address] [place] [address] Sodium [Moles/Vol] 142 mmol/L Normal 135-145 [facility] Comment on above: Performed By: #### H ALCIRA, BMP3 #### [facility] [employer] [facility] [address] [place] [address] Anion gap [Moles/Vol] 5 mmol/L 3 - 13 mmol/L [facility] Work Phone: Calcium [Mass/Vol] 8.8 mg/dL 8.4 - 10. 4 mg/dL [facility] Work Phone: Chloride [Moles/Vol] 112 mmol/L High 98 - 10 7 mmol/L [facility] Work Phone: CO2 [Moles/Vol] 26 mmol/L 22 - 30 mmol/L [facility] Work Phone: Creatinine [Mass/Vol] 0.49 mg/dL Low 0.52 - 1.25 mg/dL [facility] Work Phone: EGFR IF NonAfrican Malagasy >90.0 >60 mL/min [facility] Work Phone: Comment on above: KDIGO [...] MDRD (S/P/Bld) [Vol rate/Area] mL/min/{1.73_m2} >60 mL/min [facility] Work Phone: Glucose [Mass/Vol] 103 mg/dL High 70 - 100 mg/dL [facility] Work Phone: Interpretation and review of laboratory results Abnormal [employer] Work Phone: Potassium [Moles/Vol] 4.1 mmol/L 3.5 - 5.1 mmol/L [facility] Work Phone: Sodium [Moles/Vol] 142 mmol/L 135 - 145 mmol/L [facility] Work Phone: Urea nitrogen (BldV) [Mass/Vol] 30 mg/dL High 7 - 17 mg/dL [facility] Work Phone: [facility], [address] [place], [place] [address] [facility] Work Phone: CBC Auto Differentialon 11- Hematocrit (Bld) [Volume fraction] 35.0 % Low 40.0 - 52.0 % [facility] Work Phone: Hemoglobin.gastrointest inal spec 1 Ql (Stl) 11.7 g/dL Low 13.0 - 18.0 g/dL [facility] Work Phone: Interpretation and review of laboratory results Abnormal [facility] Work Phone: MCH (RBC) [Entitic mass] 31.0 pg 26.0 - 34.0 pg [facility] Work Phone: MCHC (RBC) [Mass/Vol] 33.4 % 32.0 - 36.0 % [facility] Work Phone: MCV (RBC) [Entitic vol] 92.7 fL 80.0 - 98.0 fL [employer] Work Phone: Platelet distribution width (Bld) [Ratio] 13.4 % 11.5 - 14.5 % [employer] Work Phone: Platelet mean volume (Bld) [Entitic vol] 8.6 fL 7.4 - 10.4 fL [facility] Work Phone: Platelets (Bld) [#/Vol] 236 10*3/uL 140 - 440 10*3/uL [facility] Work Phone: RBC (Bld) [#/Vol] 3.77 10*6/uL Low 4.40 - 5.9 0 10*6/uL [facility] Work Phone: WBC (Bld) [#/Vol] 12.8 10*3/uL High 3.6 - 10.7 10*3/uL [facility] Work Phone: Test Performed by [facility] [place], [address] [place], [place] [address] [facility] Work Phone: Glucose,Bedsideon 03-24-2021 Glucose [Mass/Vol] 93 mg/dL Normal 70-100 [facility] Comment on above: Result Comment: Test performed by glucose meter. Results may be 10%-15% lower than serum/plasma values. (CLIA ID [id number]) Performed By: #### H MAYKEL BMP3 #### [employer] [address] [place] [address] Glucose [Mass/Vol] 166 mg/dL High 70-100 [facility] Comment on above: Result Comment: Test performed by glucose meter. Results may be 10%-15% lower than serum/plasma values. (CLIA ID [id number]) Performed By: #### B GLU ####[facility] [address] [place] [address] Hemogram w/ Autodiffon 03-24 Erythrocyte distribution width (RBC) [Ratio] 13.4 % Normal 11.5-14.5 [facility] Comment on above: Performed By: #### H EMDF, BMP3 #### [employer] [facility] [address] [place] [address] Hematocrit (Bld) [Volume fraction] 35.0 % Low 40.0-52.0 [facility] Comment on above: Performed By: #### H EMDF, BMP3 #### [employer] [facility] [address] [place] [address] Hemoglobin (Bld) [Mass/Vol] 11.7 g/dL Low 13.0-18.0 [facility] Comment on above: Performed By: #### H EMDF, BMP3 #### [facility] [address] [place] [address] MCH (RBC) [Entitic mass] 31.0 pg Normal 26.0-34.0 [facility] Comment on above: Performed By: #### H EMDF, BMP3 #### [facility] [address] [place] [address] MCHC 33.4 % Normal 32.0-36.0 [facility] Comment on above: Performed By: #### H EMDMaurice, BMP3 #### [facility] [address] [place] [address] MCV (RBC) [Entitic vol] 92.7 fL Normal 80.0-98.0 [facility] Comment on above: Performed By: #### H EMDF, BMP3 #### [facility] [address] [place] [address] Platelet mean volume (Bld) [Entitic vol] 8.6 fL Normal 7.4-10.4 [facility] Comment on above: Performed By: #### H EMDF, BMP3 #### [facility] [address] [place] [address] Platelets (Bld) [#/Vol] 236 10*3/uL Normal 140-440 [facility] Comment on above: Performed By: #### H EMDMaurice, BMP3 #### [facility] [address] [place] [address] RBC (Bld) [#/Vol] 3.77 10*6/uL Low 4.40-5.90 [facility] Comment on above: Performed By: #### H EMDF, BMP3 #### [facility] [address] [place] [address] WBC (Bld) [#/Vol] 12.8 10*3/uL High 3.6-10.7 [facility] Comment on above: Performed By: #### H EMDF, BMP3 #### [facility] [address] [place] [address] Manual Diffon 03-24-2021 Abs Lymph Cnt 1.7 10*3/uL Normal 1.1-4.5 [facility] Comment on above: Performed By: #### H EMDF, BMP3 #### [facility] [address] [place] [address] Abs Monocyte Cnt 0.8 10*3/uL Normal 0.2-1.1 [facility] Comment on above: Performed By: #### H EMDF, BMP3 #### [facility] [address] [place] [address] Abs Neutrophile Cnt 10.1 10*3/uL High 2.2-8.2 [facility] Comment on above: Performed By: #### H EMDF, BMP3 #### [facility] [address] [place] [address] Anisocytosis Slight Normal [facility] Comment on above: Performed By: #### H EMDF, BMP3 #### [facility] [address] [place] [address] Atypical Lymphocytes 2 % Abnormal <1 [facility] Comment on above: Performed By: #### H EMDF, BMP3 #### [facility] [address] [place] [address] Abdoul Cells Slight Normal [facility] Comment on above: Performed By: #### H EMDF, BMP3 #### [facility] [address] [place] [address] Lymphocytes 11 % Low 20-40 [facility] Comment on above: Performed By: #### H EMDF, BMP3 #### [facility] [address] [place] [address] Monocytes 6 % Normal 2-10 [facility] Comment on above: Performed By: #### H EMDF, BMP3 #### [facility] [address] [place] [address] Myelocytes 2 % Abnormal <1 [facility] Comment on above: Performed By: #### H EMDF, BMP3 #### [facility] [address] [place] [address] Ovalocytes Slight Normal [facility] Comment on above: Performed By: #### H EMDF, BMP3 #### [facility] [address] [place] [address] Poikilocytosis Slight Normal [facility] Comment on above: Performed By: #### H EMDF, BMP3 #### [facility] [address] [place] [address] Polychromasia Slight Normal [facility] Comment on above: Performed By: #### H EMDF, BMP3 #### [facility] [address] [place] [address] RBC Morphology ABNORMAL Normal [facility] Comment on above: Performed By: #### H EMDF, BMP3 #### [facility] [address] [place] [address] Seg Neutrophils 79 % Normal 40-80 [facility] Comment on above: Performed By: #### H EMDF, BMP3 #### [facility] [address] [place] [address] Tear Drop Forms Slight Normal [facility] Comment on above: Performed By: #### H EMDF, BMP3 #### [facility] [address] [place] [address] Abs Baso Cnt 0.0 10*3/uL Normal 0.0-0.2 [facility] Comment on above: Performed By: #### H EMDF, BMP3 #### [facility] [address] [place] [address] Abs Eosin Cnt 0.0 10*3/uL Normal 0.0-0.5 [facility] Comment on above: Performed By: #### H EMDF, BMP3 #### [facility] [address] [place] [address] Bands 0 % Normal 0-3 [facility] Comment on above: Performed By: #### H EMDF, BMP3 #### [facility] [address] [place] [address] Basophils 0 % Normal 0-2 [facility] Comment on above: Performed By: #### H EMDF, BMP3 #### [facility] [address] [place] [address] Cells counted 100 Normal [facility] Comment on above: Performed By: #### H EMDF, BMP3 #### [facility] [address] [place] [address] Eosinophils 0 % Low 1-6 [employer] Comment on above: Performed By: #### H EMDF, BMP3 #### [facility] [address] [place] [address] Manual Differentialon 2020 Absolute Baso # 0.0 10*3/uL 0.0 - 0.2 10*3/uL [facility] Work Phone: Absolute Eos # 0.0 10*3/uL 0.0 - 0.5 10*3/uL [facility] Work Phone: Absolute Lymph # 1.7 10*3/uL 1.1 - 4.5 10*3/uL [facility] Work Phone: Absolute [place] # 0.8 10*3/uL 0.2 - 1.1 10*3/uL [facility] Work Phone: Absolute Neut # 10.1 10*3/uL High 2.2 - 8.2 10*3/uL [facility] Work Phone: [phone] Anisocytosis Slight [facility] Work Phone: [phone] Atypical Lymphocytes 2 % Abnormal <1 [facility] Work Phone: [phone] Bands 0 % 0 - 3 % [facility] Work Phone: [phone] Basophils/100 WBC (Bld) 0 % 0 - 2 % [facility] Work Phone: [phone] Klamath Cells Slight [facility] Work Phone: [phone] Eosinophils/100 WBC (Bld) 0 % Low 1 - 6 % [facility] Work Phone: Interpretation and review of laboratory results Abnormal [facility] Work Phone: Lymphocytes/100 WBC (Bld) 11 % Low 20 - 40 % [facility] Work Phone: Monocytes/100 WBC (Bld) 6 % 2 - 10 % [facility] Work Phone: Myelocytes 2 % Abnormal <1 [facility] Work Phone: [phone] Ovalocytes Slight [facility] Work Phone: Poikilocytes Slight [facility] Work Phone: Polychromasia Slight [facility] Work Phone: RBC (Bld) [#/Vol] ABNORMAL [facility] Work Phone: Seg Neutrophils 79 % 40 - 80 % [facility] Work Phone: Tear Drop Cells Slight [facility] Work Phone: TOTAL CELLS COUNTED 100 [facility] Work Phone: Test Performed by [facility], [address] [place], [place] [address] [facility] LAB [facility] Work Phone: POCT Glucoseon 03-24-2020 Glucose [Mass/Vol] 93 mg/dL 70 - 100 mg/dL [facility] Work Phone: Comment on above: Test performed by gl ucose meter. Results may be 10%-15% lower than serum/plasma values. (CLIA ID [id number]) Test Performed by [facility], [address] [place], [place] [address] [facility] LAB [facility] Work Phone: Basic Metabolic Panelon -2 Calcium [Mass/Vol] 8.8 mg/dL Normal 8.4-10.4 [facility] Comment on above: Performed By: #### H EMDF, BMP3 #### [facility] [address] [place] [address] Glucose [Mass/Vol] 143 mg/dL High 70-100 [facility] Comment on above: Performed By: #### H EMDF, BMP3 #### [facility] [address] [place] [address] Anion gap [Moles/Vol] 8 mmol/L Normal 3-13 [facility] Comment on above: Performed By: #### H EMDF, BMP3 #### [facility] [address] [place] [address] CO2 [Moles/Vol] 24 mmol/L Normal 22-30 [facility] Comment on above: Performed By: #### H EMDF, BMP3 #### [facility] [address] [place] [address] Creatinine [Mass/Vol] 0.47 mg/dL Low 0.52-1.25 [facility] Comment on above: Performed By: #### H KORIN BRAR3 #### [facility] [address] [place] [address] eGFR OTHER > 90.0 Normal >60 [facility] Comment on above: Result Comment: [...] tubular creatinine secretion. Performed By: #### H KORIN BRAR3 #### [facility] [address] [place] [address] GFR/1.73 sq M.predicted among blacks MDRD (S/P/Bld) [Vol rate/Area] mL/min/{1.73_m2} Normal >60 [facility] Comment on above: Performed By: #### H KORIN BRAR3 #### [facility] [address] [place] [address] Urea nitrogen [Mass/Vol] 32 mg/dL High 7-17 [facility] Comment on above: Performed By: #### H MAYKEL BMP3 #### [facility] [address] [place] [address] Chloride [Moles/Vol] 110 mmol/L High 98-107 [facility] Comment on above: Performed By: #### H KORIN BRAR3 #### [facility] [address] [place] [address] Potassium [Moles/Vol] 3.9 mmol/L Normal 3.5-5.1 [facility] Comment on above: Performed By: #### H KORIN BRAR3 #### [facility] [address] [place] [address] Sodium [Moles/Vol] 142 mmol/L Normal 135-145 [facility] Comment on above: Performed By: #### H MAYKEL BMP3 #### [facility] [address] [place] [address] Anion gap [Moles/Vol] 8 mmol/L 3 - 13 mmol/L [facility] Work Phone: Calcium [Mass/Vol] 8.8 mg/dL 8.4 - 10. 4 mg/dL [facility] Work Phone: Chloride [Moles/Vol] 110 mmol/L High 98 - 10 7 mmol/L [facility] Work Phone: CO2 [Moles/Vol] 24 mmol/L 22 - 30 mmol/L [facility] Work Phone: Creatinine [Mass/Vol] 0.47 mg/dL Low 0.52 - 1.25 mg/dL [facility] Work Phone: EGFR IF NonAfrican Malagasy >90.0 >60 mL/min [facility] Work Phone: Comment on above: KDIGO [...] MDRD (S/P/Bld) [Vol rate/Area] mL/min/{1.73_m2} >60 mL/min [facility] Work Phone: Glucose [Mass/Vol] 143 mg/dL High 70 - 100 mg/dL [facility] Work Phone: Interpretation and review of laboratory results Abnormal [facility] Work Phone: Potassium [Moles/Vol] 3.9 mmol/L 3.5 - 5.1 mmol/L [facility] Work Phone: Sodium [Moles/Vol] 142 mmol/L 135 - 145 mmol/L [facility] Work Phone: Urea nitrogen (BldV) [Mass/Vol] 32 mg/dL High 7 - 17 mg/dL [facility] Work Phone: [facility], [address] [place] [id number] [place] [address] LAB [facility] Work Phone: CBC Auto Differentialon 11-2 Absolute Baso # 0.0 10*3/uL 0.0 - 0.2 10*3/uL [facility] Work Phone: Absolute Neut # 13.5 10*3/uL High 1.8 - 7.0 10*3/uL [facility] Work Phone: Basophils/100 WBC (Bld) 0.3 % 0.0 - 2.0 % [facility] Work Phone: Eosinophils (Bld) [#/Vol] 0.0 10*3/uL 0.0 - 0.5 10*3/uL [facility] Work Phone: Eosinophils/100 WBC (Bld) 0.0 % Low 1.0 - 6.0 % [facility] Work Phone: Granulocytes/100 WBC (Bld) 89.5 % High 40.0 - 80.0 % [facility] Work Phone: Hematocrit (Bld) [Volume fraction] 36.5 % Low 40.0 - 52.0 % [facility] Work Phone: Hemoglobin.gastrointest inal spec 1 Ql (Stl) 12.4 g/dL Low 13.0 - 18.0 g/dL [facility] Work Phone: Interpretation and review of laboratory results Abnormal [facility] Work Phone: Lymphocytes (Bld) [#/Vol] 0.7 10*3/uL Low 1.0 - 4.3 10*3/uL [facility] Work Phone: Lymphocytes/100 WBC (Bld) 4.8 % Low 20.0 - 40.0 % [facility] Work Phone: MCH (RBC) [Entitic mass] 31.3 pg 26.0 - 34.0 pg [facility] Work Phone: MCHC (RBC) [Mass/Vol] 34.1 % 32.0 - 36.0 % [facility] Work Phone: MCV (RBC) [Entitic vol] 92.0 fL 80.0 - 98.0 fL [facility] Work Phone: Monocytes (Bld) [#/Vol] 0.8 10*3/uL 0.0 - 0.8 10*3/uL [facility] Work Phone: Monocytes/100 WBC (Bld) 5.4 % 2.0 - 10.0 % [facility] Work Phone: Platelet distribution width (Bld) [Ratio] 13.2 % 11.5 - 14.5 % [facility] Work Phone: Platelet mean volume (Bld) [Entitic vol] 9.0 fL 7.4 - 10.4 fL [facility] Work Phone: Platelets (Bld) [#/Vol] 211 10*3/uL 140 - 440 10*3/uL [facility] Work Phone: RBC (Bld) [#/Vol] 3.96 10*6/uL Low 4.40 - 5.9 0 10*6/uL [facility] Work Phone: WBC (Bld) [#/Vol] 15.1 10*3/uL High 3.6 - 10.7 10*3/uL [facility] Work Phone: Test Performed by [facility], [address] [place], [place] [address] [facility] LAB [facility] Work Phone: Glucose,Bedsideon 03-23-2021 Glucose [Mass/Vol] 122 mg/dL High 70-100 [facility] Comment on above: Result Comment: Test performed by glucose meter. Results may be 10%-15% lower than serum/plasma values. (CLIA ID [id number]) Performed By: #### H MITALI BRAR #### [facility] [address] [place] [address] Glucose [Mass/Vol] 129 mg/dL High 70-100 [facility] Comment on above: Test performed by gl ucose meter. Results may be 10%-15% lower than serum/plasma values. (CLIA ID [id number]) Result Comment: Test performed by glucose meter. Results may be 10%-15% lower than serum/plasma values. (CLIA ID [id number]) Performed By: #### B GLU ####[facility] [address] [place] [address] Glucose [Mass/Vol] 136 mg/dL High 70-100 [facility] Comment on above: Result Comment: Test performed by glucose meter. Results may be 10%-15% lower than serum/plasma values. (CLIA ID [id number]) Performed By: #### B GLU #### [facility] [address] [place] [address] Hemogram w/ Autodiffon 03-23 Abs Baso Cnt 0.0 10*3/uL Normal 0.0-0.2 [facility] Comment on above: Performed By: #### H EMDMaurice BMP3 #### [facility] [address] [place] [address] Abs Neutrophile Cnt 13.5 10*3/uL High 1.8-7.0 [facility] Comment on above: Performed By: #### H EMDF, BMP3 #### [facility] [address] [place] [address] Basophils/100 WBC (Bld) 0.3 % Normal 0.0-2.0 S [facility] Comment on above: Performed By: #### H EMDF, BMP3 #### [facility] [address] [place] [address] Eosinophils (Bld) [#/Vol] 0.0 10*3/uL Normal 0.0-0.5 [facility] Comment on above: Performed By: #### H EMDF, BMP3 #### [facility] [address] [place] [address] Eosinophils/100 WBC (Bld) 0.0 % Low 1.0-6.0 [facility] Comment on above: Performed By: #### H EMDF, BMP3 #### [facility] [address] [place] [address] Erythrocyte distribution width (RBC) [Ratio] 13.2 % Normal 11.5-14.5 [facility] Comment on above: Performed By: #### H EMDF, BMP3 #### [facility] [address] [place] [address] Granulocytes/100 WBC (Bld) 89.5 % High 40.0-80.0 [facility] Comment on above: Performed By: #### H EMDF, BMP3 #### [facility] [address] [place] [address] Hematocrit (Bld) [Volume fraction] 36.5 % Low 40.0-52.0 [facility] Comment on above: Performed By: #### H EMDF, BMP3 #### [facility] [address] [place] [address] Hemoglobin (Bld) [Mass/Vol] 12.4 g/dL Low 13.0-18.0 [facility] Comment on above: Performed By: #### H EMDF, BMP3 #### [facility] [address] [place] [address] Lymphocytes (Bld) [#/Vol] 0.7 10*3/uL Low 1.0-4.3 [facility] Comment on above: Performed By: #### H EMDF, BMP3 #### [facility] [address] [place] [address] Lymphocytes/100 WBC (Bld) 4.8 % Low 20.0-40.0 [facility] Comment on above: Performed By: #### H EMDF, BMP3 #### [facility] [address] [place] [address] MCH (RBC) [Entitic mass] 31.3 pg Normal 26.0-34.0 [facility] Comment on above: Performed By: #### H EMDF, BMP3 #### [facility] [address] [place] [address] MCHC 34.1 % Normal 32.0-36.0 [facility] Comment on above: Performed By: #### H EMDF, BMP3 #### [facility] [address] [place] [address] MCV (RBC) [Entitic vol] 92.0 fL Normal 80.0-98.0 [facility] Comment on above: Performed By: #### H EMDF, BMP3 #### [facility] [address] [place] [address] Monocytes (Bld) [#/Vol] 0.8 10*3/uL Normal 0.0-0.8 [facility] Comment on above: Performed By: #### H EMDF, BMP3 #### [facility] [address] [place] [address] Monocytes/100 WBC (Bld) 5.4 % Normal 2.0-10.0 [facility] Comment on above: Performed By: #### H EMDF, BMP3 #### [facility] [address] [place] [address] Platelet mean volume (Bld) [Entitic vol] 9.0 fL Normal 7.4-10.4 [facility] Comment on above: Performed By: #### H EMDF, BMP3 #### [facility] [address] [place] [address] Platelets (Bld) [#/Vol] 211 10*3/uL Normal 140-440 [facility] Comment on above: Performed By: #### H EMDF, BMP3 #### [facility] [address] [place] [address] RBC (Bld) [#/Vol] 3.96 10*6/uL Low 4.40-5.90 [facility] Comment on above: Performed By: #### H EMDF, BMP3 #### [facility] [address] [place] [address] WBC (Bld) [#/Vol] 15.1 10*3/uL High 3.6-10.7 [facility] Comment on above: Performed By: #### H EMDF, BMP3 #### [facility] [address] [place] [address] No Panel Informationon 03-23 Interpretation and review of laboratory results Abnormal [facility] Work Phone: Test Performed by [place] [address] LAB [facility] Work Phone: POCT Glucoseon 03-23-2021 Glucose [Mass/Vol] 166 mg/dL High 70 - 100 mg/dL [facility] Comment on above: Test performed by gl ucose meter. Results may be 10%-15% lower than serum/plasma values. (CLIA ID [id number]) Interpretation and review of laboratory results Abnormal [facility] Test Performed by [facility], [facility] [address] [place], [place] [id number] [place] [address] LAB [facility] Glucose [Mass/Vol] 122 mg/dL High 70 - 100 mg/dL [facility] Work Phone: Comment on above: Test performed by gl ucose meter. Results may be 10%-15% lower than serum/plasma values. (CLIA ID [id number]) Glucose [Mass/Vol] 136 mg/dL High 70 - 100 mg/dL [facility] Comment on above: Test performed by gl ucose meter. Results may be 10%-15% lower than serum/plasma values. (CLIA ID [id number]) Interpretation and review of laboratory results Abnormal [facility] Test Performed by [facility], [address], [place], [place] [address] [facility] LAB [facility] CBC Auto Differentialon 03-02 [...] 10*6/uL Low 4.40 - 5.9 0 10*6/uL [facility] WBC (Bld) [#/Vol] 13.3 10*3/uL High 3.6 - 10.7 10*3/uL [facility] Test Performed by [facility], [address] [place], [place] [address] [facility] LAB [facility] Glucose,Bedsideon 03-22-2021 Glucose [Mass/Vol] 134 mg/dL High 70-100 [facility] Comment on above: Result Comment: Test performed by glucose meter. Results may be 10%-15% lower than serum/plasma values. (CLIA ID [id number]) Performed By: #### H EMDF, BMP3 #### [facility] [address] [place] [address] Glucose [Mass/Vol] 190 mg/dL High 70-100 [facility] Comment on above: Result Comment: Test performed by glucose meter. Results may be 10%-15% lower than serum/plasma values. (CLIA ID [id number]) Performed By: #### B GLU #### [facility] [address] [place] [address] Glucose [Mass/Vol] 200 mg/dL High 70-100 [facility] Comment on above: Result Comment: Test performed by glucose meter. Results may be 10%-15% lower than serum/plasma values. (CLIA ID [id number]) Performed By: #### B GLU #### [facility] [address] [place] [address] Glucose [Mass/Vol] 181 mg/dL High 70-100 [facility] Comment on above: Result Comment: Test performed by glucose meter. Results may be 10%-15% lower than serum/plasma values. (CLIA ID [id number]) Performed By: #### B GLU #### [facility] [address] [place] [address] Glucose [Mass/Vol] 186 mg/dL High 70-100 [facility] Comment on above: Result Comment: Test performed by glucose meter. Results may be 10%-15% lower than serum/plasma values. (CLIA ID [id number]) Performed By: #### B GLU #### [facility] [address] [place] [address] Hemoglobin A1Con 03-22-2021 Glucose [Mass/Vol] 108 mg/dL Normal [facility] Comment on above: Performed By: #### B GLU #### [facility] [address] [place] [address] HbA1c (Bld) [Mass fraction] 5.4 % Normal [facility] Comment on above: Result Comment: Norm al less than 5.7% Prediabetes 5.7% to 6.4% Diabetes 6.5% or higher --HgbA1C levels may not be accurate in patients who have renal disease, received recent blood transfusions, are anemic, or who have dyshemoglobinemia. Performed By: #### B GLU #### [facility] [address] [place] [address] HbA1c (Bld) [Mass fraction] 5.4 % [facility] Comment on above: Normal less than 5.7 % Prediabetes 5.7% to 6.4% Diabetes 6.5% or higher --HgbA1C levels may not be accurate in patients who have renal disease, received recent blood transfusions, are anemic, or who have dyshemoglobinemia. Magnesium [Mass/Vol] 108 mg/dL [facility] Test Performed by [facility], [address] [place], [place] [address] [facility] LAB [facility] Hemogram w/ Autodiffon 03-22 Abs Baso Cnt 0.0 10*3/uL Normal 0.0-0.2 [facility] Comment on above: Performed By: #### B GLU #### [facility] [address] [place] [address] Abs Neutrophile Cnt 12.3 10*3/uL High 1.8-7.0 [facility] Comment on above: Performed By: #### B GLU #### [facility] [address] [place] [address] Basophils/100 WBC (Bld) 0.2 % Normal 0.0-2.0 [facility] Comment on above: Performed By: #### B GLU #### [facility] [address] [place] [address] Eosinophils (Bld) [#/Vol] 0.0 10*3/uL Normal 0.0-0.5 [facility] Comment on above: Performed By: #### B GLU #### [facility] [address] [place] [address] Eosinophils/100 WBC (Bld) 0.0 % Low 1.0-6.0 [facility] Comment on above: Performed By: #### B GLU #### [facility] [address] [place] [address] Erythrocyte distribution width (RBC) [Ratio] 12.8 % Normal 11.5-14.5 [facility] Comment on above: Performed By: #### B GLU #### [facility] [address] [place] [address] Granulocytes/100 WBC (Bld) 92.7 % High 40.0-80.0 [facility] Comment on above: Performed By: #### B GLU #### [facility] [address] [place] [address] Hematocrit (Bld) [Volume fraction] 35.9 % Low 40.0-52.0 [facility] Comment on above: Performed By: #### B GLU #### [facility] [address] [place] [address] Hemoglobin (Bld) [Mass/Vol] 12.4 g/dL Low 13.0-18.0 [facility] Comment on above: Performed By: #### B GLU #### [facility] [address] [place] [address] Lymphocytes (Bld) [#/Vol] 0.5 10*3/uL Low 1.0-4.3 [facility] Comment on above: Performed By: #### B GLU #### [facility] [address] [place] [address] Lymphocytes/100 WBC (Bld) 3.6 % Low 20.0-40.0 [facility] Comment on above: Performed By: #### B GLU #### [facility] [address] [place] [address] MCH (RBC) [Entitic mass] 31.6 pg Normal 26.0-34.0 [facility] Comment on above: Performed By: #### B GLU #### [facility] [address] [place] [address] MCHC 34.6 % Normal 32.0-36.0 [facility] Comment on above: Performed By: #### B GLU #### [facility] [address] [place] [address] MCV (RBC) [Entitic vol] 91.2 fL Normal 80.0-98.0 [facility] Comment on above: Performed By: #### B GLU #### [facility] [address] [place] [address] Monocytes (Bld) [#/Vol] 0.5 10*3/uL Normal 0.0-0.8 [facility] Comment on above: Performed By: #### B GLU #### [facility] [address] [place] [address] Monocytes/100 WBC (Bld) 3.5 % Normal 2.0-10.0 [facility] Comment on above: Performed By: #### B GLU #### [facility] [address] [place] [address] Platelet mean volume (Bld) [Entitic vol] 9.5 fL Normal 7.4-10.4 [facility] Comment on above: Performed By: #### B GLU #### [facility] [address] [place] [address] Platelets (Bld) [#/Vol] 158 10*3/uL Normal 140-440 [facility] Comment on above: Performed By: #### B GLU #### [facility] [address] [place] [address] RBC (Bld) [#/Vol] 3.93 10*6/uL Low 4.40-5.90 [facility] Comment on above: Performed By: #### B GLU #### [facility] [address] [place] [address] WBC (Bld) [#/Vol] 13.3 10*3/uL High 3.6-10.7 [facility] Comment on above: Performed By: #### B GLU #### [facility] [address] [place] [address] MRSA by PCRon 03-22-2021 Staph Aureus Sc No S. aureus detected. Negative nasal MRSA PCR has a high negative predictive value for MRSA pneumonia. Consider stopping vancomycin if no other clinical indication. Contact Antimicrobial Stewardship for further recommendations. The analytical performance characteristics of this assay have been determined by [employer] in accordance with CLIA regulations. The modifications have not been cleared or approved by the U. S. Food and Drug Administration; however, the FDA has determined that such clearance or approval is not necessary. [facility] Test Performed by [facility], [address] [place] [id number] [place] [address] LAB [facility] POCT GlucoseOrdered By: Pascual Morgan on 03-22-2021 Glucose [Mass/Vol] 134 mg/dL High 70 - 100 mg/dL [facility] Work Phone: Comment on above: Test performed by gl ucose meter. Results may be 10%-15% lower than serum/plasma values. (CLIA ID [id number]) Interpretation and review of laboratory results Abnormal [facility] Work Phone: [facility] Work Phone: POCT Glucoseon 03-22-2021 Test Performed by [facility], [address] LAB Glucose [Mass/Vol] 190 mg/dL High 70 - 100 mg/dL [facility] Comment on above: Test performed by gl ucose meter. Results may be 10%-15% lower than serum/plasma values. (CLIA ID [id number]) Interpretation and review of laboratory results Abnormal [facility] Test Performed by [facility], [address] LAB [facility] Glucose [Mass/Vol] 200 mg/dL High 70 - 100 mg/dL [facility] Comment on above: Test performed by gl ucose meter. Results may be 10%-15% lower than serum/plasma values. (CLIA ID [id number]) Interpretation and review of laboratory results Abnormal [facility] Test Performed by [facility], [address], [address] LAB [facility] Glucose [Mass/Vol] 181 mg/dL High 70 - 100 mg/dL [facility] Comment on above: Test performed by gl ucose meter. Results may be 10%-15% lower than serum/plasma values. (CLIA ID [id number]) Interpretation and review of laboratory results Abnormal [facility] Test Performed by [facility], [address], [address] LAB [facility] Glucose [Mass/Vol] 186 mg/dL High 70 - 100 mg/dL [facility] Comment on above: Test performed by gl ucose meter. Results may be 10%-15% lower than serum/plasma values. (CLIA ID [id number]) Interpretation and review of laboratory results Abnormal [facility] Test Performed by [facility], [address] LAB [facility] Procalcitoninon 03-22-2021 Procalcitonin 0.09 ng/mL Normal 0.00-0.09 [facility] Comment on above: Performed By: #### H [facility] #### [facility] [address] [place] [address] Interpretation See Below [facility] Comment on above: PCT <0.50 = Low risk of severe sepsis and/or septic shock. PCT >2.00 = High risk of severe sepsis and/or septic shock. Procalcitonin 0.09 ng/mL 0.00 - 0.09 ng/mL [facility] Test Performed by [facility], [address] [place] [place] [id number] [place] [address] LAB [facility] Staph Aureus Complete Nasalo n 03-22-2021 Staph Aureus Complete Nasal Staph Screen --> Status: F No S. aureus detected. Negative nasal MRSA PCR has a high negative predictive value for MRSA pneumonia. Consider stopping vancomycin if no other clinical indication. Contact Antimicrobial Stewardship for further recommendations. The analytical performance characteristics of this assay have been determined by [employer] in accordance with CLIA regulations. The modifications [...] of this assay have been determined by [facility] in accordance with CLIA regulations. The modifications have not been cleared or approved by the U. S. Food and Drug Administration; however, the FDA has determined that such clearance or approval is not necessary. Normal [facility] Comment on above: Performed By: #### S APCR ####[facility] [place] [address] Vancomycin Troughon 03-22-20 21 Vancomycin Trough 8.1 ug/mL Low 15.0-20.0 [facility] Comment on above: Result Comment: . Performed By: #### B GLU #### [facility] [address] [place] [address] Vancomycin, Troughon 021 Interpretation and review of laboratory results Abnormal [facility] Vancomycin Tr 8.1 ug/mL Low 15.0 - 20.0 ug/mL [facility] Comment on above: . Test Performed by [facility], [address] [place] [address] [facility] LAB [facility] Basic Metabolic Panelon 11 Anion gap [Moles/Vol] 7 mmol/L Normal 3-13 [facility] Comment on above: Performed By: #### H EMDF, BMP3 #### [facility] [address] [place] [address] Calcium [Mass/Vol] 8.1 mg/dL Low 8.4-10.4 [facility] Comment on above: Performed By: #### H EMDF, BMP3 #### [facility] [address] [place] [address] CO2 [Moles/Vol] 26 mmol/L Normal 22-30 [facility] Comment on above: Performed By: #### H EMDF, BMP3 #### [facility] [address] [place] [address] Glucose [Mass/Vol] 156 mg/dL High 70-100 [facility] Comment on above: Performed By: #### H MAYKEL BMP3 #### [facility] [address] [place] [address] Urea nitrogen [Mass/Vol] 19 mg/dL High 7-17 [facility] Comment on above: Performed By: #### H MAYKEL BMP3 #### [facility] [address] [place] [address] Creatinine [Mass/Vol] 0.53 mg/dL Normal 0.52-1.25 [facility] Comment on above: Performed By: #### H MAYKEL BMP3 #### [facility] [address] [place] [address] eGFR OTHER > 90.0 Normal >60 [facility] Comment on above: Result Comment: [...] Performed By: #### H MAYKEL BMP3 #### [facility] [address] [place] [address] GFR/1.73 sq M.predicted among blacks MDRD (S/P/Bld) [Vol rate/Area] mL/min/{1.73_m2} Normal >60 [facility] Comment on above: Performed By: #### H MAYKEL BMP3 #### [facility] [address] [place] [address] Chloride [Moles/Vol] 103 mmol/L Normal 98-107 [facility] Comment on above: Performed By: #### H MAYKEL BMP3 #### [facility] [address] [place] [address] Potassium [Moles/Vol] 3.4 mmol/L Low 3.5-5.1 [facility] Comment on above: Performed By: #### H MAYKEL, BMP3 #### [facility] [address] [place] [address] Sodium [Moles/Vol] 136 mmol/L Normal 135-145 [facility] Comment on above: Performed By: #### H MAYKEL, BMP3 #### [facility] [address] [place] [address] Basic Metabolic Panel w/ Ref marciano to MGon 03-21-2021 Anion gap [Moles/Vol] 7 mmol/L 3 - 13 mmol/L [facility] Work Phone: Calcium [Mass/Vol] 8.1 mg/dL Low 8.4 - 10. 4 mg/dL [facility] Work Phone: Chloride [Moles/Vol] 103 mmol/L 98 - 10 7 mmol/L [facility] Work Phone: CO2 [Moles/Vol] 26 mmol/L 22 - 30 mmol/L [facility] Work Phone: Creatinine [Mass/Vol] 0.53 mg/dL 0.52 - 1.25 mg/dL [facility] Work Phone: EGFR IF NonAfrican Malagasy >90.0 >60 mL/min [facility] Work Phone: Comment on above: KDIGO [...] MDRD (S/P/Bld) [Vol rate/Area] mL/min/{1.73_m2} >60 mL/min [facility] Work Phone: Glucose [Mass/Vol] 156 mg/dL High 70 - 100 mg/dL [facility] Work Phone: Interpretation and review of laboratory results Abnormal [facility] Work Phone: Potassium [Moles/Vol] 3.4 mmol/L Low 3.5 - 5.1 mmol/L [facility] Work Phone: Sodium [Moles/Vol] 136 mmol/L 135 - 145 mmol/L [facility] Work Phone: Urea nitrogen (BldV) [Mass/Vol] 19 mg/dL High 7 - 17 mg/dL [facility] Work Phone: Test Performed by [facility], [address] [place] [id number] [place] [address] LAB [facility] Work Phone: CBCon 03-21-2021 Hematocrit (Bld) [Volume fraction] 35.4 % Low 40.0 - 52.0 % [facility] Work Phone: Hemoglobin.gastrointest inal spec 1 Ql (Stl) 11.9 g/dL Low 13.0 - 18.0 g/dL [facility] Work Phone: Interpretation and review of laboratory results Abnormal [facility] Work Phone: MCH (RBC) [Entitic mass] 30.5 pg 26.0 - 34.0 pg [facility] Work Phone: MCHC (RBC) [Mass/Vol] 33.7 % 32.0 - 36.0 % [facility] Work Phone: MCV (RBC) [Entitic vol] 90.6 fL 80.0 - 98.0 fL [facility] Work Phone: Platelet distribution width (Bld) [Ratio] 13.1 % 11.5 - 14.5 % [facility] Work Phone: Platelet mean volume (Bld) [Entitic vol] 9.1 fL 7.4 - 10.4 fL [facility] Work Phone: Platelets (Bld) [#/Vol] 136 10*3/uL Low 140 - 440 10*3/uL [facility] Work Phone: RBC (Bld) [#/Vol] 3.91 10*6/uL Low 4.40 - 5.9 0 10*6/uL [facility] Work Phone: WBC (Bld) [#/Vol] 7.1 10*3/uL 3.6 - 10.7 10*3/uL [facility] Work Phone: Test Performed by [facility], [address] [place], [place] [address] [facility] LAB [facility] Work Phone: Glucose,Bedsideon 03-21-2021 Glucose [Mass/Vol] 131 mg/dL High 70-100 [facility] Comment on above: Result Comment: Test performed by glucose meter. Results may be 10%-15% lower than serum/plasma values. (CLIA ID [id number]) Performed By: #### B GLU #### [facility] [address] [place] [address] Glucose [Mass/Vol] 230 mg/dL High 70-100 [facility] Comment on above: Result Comment: Test performed by glucose meter. Results may be 10%-15% lower than serum/plasma values. (CLIA ID [id number]) Performed By: #### B GLU #### [facility] [address] [place] [address] Hemogramon 03-21-2021 Erythrocyte distribution width (RBC) [Ratio] 13.1 % Normal 11.5-14.5 [facility] Comment on above: Performed By: #### H EMDF, BMP3 #### [facility] [address] [place] [address] Hematocrit (Bld) [Volume fraction] 35.4 % Low 40.0-52.0 [facility] Comment on above: Performed By: #### H EMDF, BMP3 #### [facility] [address] [place] [address] Hemoglobin (Bld) [Mass/Vol] 11.9 g/dL Low 13.0-18.0 [facility] Comment on above: Performed By: #### H EMDF, BMP3 #### [facility] [address] [place] [address] MCH (RBC) [Entitic mass] 30.5 pg Normal 26.0-34.0 [facility] Comment on above: Performed By: #### H EMDF, BMP3 #### [facility] [address] [place] [address] MCHC 33.7 % Normal 32.0-36.0 [facility] Comment on above: Performed By: #### H EMDF, BMP3 #### [facility] [address] [place] [address] MCV (RBC) [Entitic vol] 90.6 fL Normal 80.0-98.0 [facility] Comment on above: Performed By: #### H EMDF, BMP3 #### [facility] [address] [place] [address] Platelet mean volume (Bld) [Entitic vol] 9.1 fL Normal 7.4-10.4 [facility] Comment on above: Performed By: #### H EMDF, BMP3 #### [facility] [address] [place] [address] Platelets (Bld) [#/Vol] 136 10*3/uL Low 140-440 [facility] Comment on above: Performed By: #### H EMDF, BMP3 #### [facility] [address] [place] [address] RBC (Bld) [#/Vol] 3.91 10*6/uL Low 4.40-5.90 [facility] Comment on above: Performed By: #### H EMDF, BMP3 #### [facility] [address] [place] [address] WBC (Bld) [#/Vol] 7.1 10*3/uL Normal 3.6-10.7 [facility] Comment on above: Performed By: #### H KORIN BRAR3 #### [facility] [address] [place] [address] Magnesiumon 03-21-2021 Magnesium [Mass/Vol] 2.2 mg/dL Normal 1.6-2.3 [facility] Comment on above: Performed By: #### H MAYKEL BMP3 #### [facility] [address] [place] [address] Magnesium [Mass/Vol] 2.2 mg/dL 1.6 - 2 .3 mg/dL [facility] Work Phone: Test Performed by [facility], [facility] [address] LAB [facility] Work Phone: POCT Glucoseon 03-21-2021 Glucose [Mass/Vol] 131 mg/dL High 70 - 100 mg/dL [facility] Comment on above: Test performed by gl ucose meter. Results may be 10%-15% lower than serum/plasma values. (CLIA ID [id number]) Interpretation and review of laboratory results Abnormal [facility] Test Performed by [facility], [facility] [address] LAB [facility] Glucose [Mass/Vol] 230 mg/dL High 70 - 100 mg/dL [facility] Comment on above: Test performed by gl ucose meter. Results may be 10%-15% lower than serum/plasma values. (CLIA ID [id number]) Interpretation and review of laboratory results Abnormal [facility] Test Performed by [facility], [facility] [address] LAB [facility] Procalcitoninon 03-21-2021 Interpretation See Below Normal [facility] Comment on above: Result Comment: PCT <0.50 = Low risk of severe sepsis and/or septic shock. PCT >2.00 = High risk of severe sepsis and/or septic shock. Performed By: #### H MAYKEL BMP3 #### [facility] [address] [place] [address] Basic Metabolic Panelon 11-2 0-202 Calcium [Mass/Vol] 8.4 mg/dL Normal 8.4-10.4 [facility] Comment on above: Performed By: #### H MAYKEL BMP3 #### [facility] [address] [place] [address] Anion gap [Moles/Vol] 6 mmol/L Normal 3-13 [facility] Comment on above: Performed By: #### H MAYKEL BMP3 #### [facility] [address] [place] [address] CO2 [Moles/Vol] 27 mmol/L Normal 22-30 [facility] Comment on above: Performed By: #### H MAYKEL BMP3 #### [facility] [address] [place] [address] Glucose [Mass/Vol] 106 mg/dL High 70-100 [facility] Comment on above: Performed By: #### H MAYKEL BMP3 #### [facility] [address] [place] [address] Urea nitrogen [Mass/Vol] 14 mg/dL Normal 7-17 [facility] Comment on above: Performed By: #### H MAYKEL BMP3 #### [facility] [address] [place] [address] Creatinine [Mass/Vol] 0.51 mg/dL Low 0.52-1.25 [facility] Comment on above: Performed By: #### H MAYKEL BMP3 #### [facility] [address] [place] [address] eGFR OTHER > 90.0 Normal >60 [facility] Comment on above: Result Comment: [...] Performed By: #### H MAYKEL BMP3 #### [facility] [address] [place] [address] GFR/1.73 sq M.predicted among blacks MDRD (S/P/Bld) [Vol rate/Area] mL/min/{1.73_m2} Normal >60 [facility] Comment on above: Performed By: #### H MAYKEL BMP3 #### [facility] [address] [place] [address] Chloride [Moles/Vol] 104 mmol/L Normal 98-107 [facility] Comment on above: Performed By: #### H MAYKEL BMP3 #### [facility] [address] [place], [place] [address] Potassium [Moles/Vol] 3.9 mmol/L Normal 3.5-5.1 [facility] Comment on above: Performed By: #### H MAYKEL BMP3 #### [facility] [address] [place], [place] [address] Sodium [Moles/Vol] 137 mmol/L Normal 135-145 [facility] Comment on above: Performed By: #### H MAYKEL, BMP3 #### [facility] [address] [place] [address] Anion gap [Moles/Vol] 6 mmol/L 3 - 13 mmol/L [facility] Work Phone: Calcium [Mass/Vol] 8.4 mg/dL 8.4 - 10. 4 mg/dL [facility] Work Phone: Chloride [Moles/Vol] 104 mmol/L 98 - 10 7 mmol/L [facility] Work Phone: CO2 [Moles/Vol] 27 mmol/L 22 - 30 mmol/L [facility] Work Phone: Creatinine [Mass/Vol] 0.51 mg/dL Low 0.52 - 1.25 mg/dL [facility] Work Phone: EGFR IF NonAfrican Malagasy >90.0 >60 mL/min [facility] Work Phone: Comment on above: KDIGO guidelines [...] MDRD (S/P/Bld) [Vol rate/Area] mL/min/{1.73_m2} >60 mL/min [facility] Work Phone: Glucose [Mass/Vol] 106 mg/dL High 70 - 100 mg/dL [facility] Work Phone: Interpretation and review of laboratory results Abnormal [facility] Work Phone: Potassium [Moles/Vol] 3.9 mmol/L 3.5 - 5.1 mmol/L [facility] Work Phone: Sodium [Moles/Vol] 137 mmol/L 135 - 145 mmol/L [facility] Work Phone: Urea nitrogen (BldV) [Mass/Vol] 14 mg/dL 7 - 17 mg/dL [facility] Work Phone: Test Performed by [facility], [address] [place], [place] [address] [facility] LAB [facility] Work Phone: C-Reactive Proteinon 20-2 021 CRP [Mass/Vol] 228.1 mg/L High 0.0-9.9 [facility] Comment on above: Result Comment: . Performed By: #### H [facility] #### [employer] [address] [place] [address] CRP [Mass/Vol] 228.1 mg/L High 0.0 - 9.9 mg/L [facility] Work Phone: Comment on above: . Interpretation and review of laboratory results Abnormal [facility] Work Phone: Test Performed by [facility], [address] [place] [address] [facility] LAB [facility] Work Phone: COVID and Resp PCR Panelon 1 05-20-2020 SARS-CoV-2 (COVID-19) RNA SHIRLEY+probe Ql (Unsp spec) COVID and Resp PCR Panel --> Status: F POSITIVE: Respiratory Syncytial Virus DETECTED. _ Expected Result: Not Detected [employer] Upper Respiratory Pathogens PCR Panel can detect [...] pneumoniae, Mycoplasma pneumoniae. Method: Real-time PCR. Abnormal [facility] Comment on above: Performed By: #### B FRP2 #### [facility] [address] [place] [address] EKG 12 Lead - Chest Painon 1 05-20-2020 [facility] Test Date: 2021-03-19 Pat Name: KATHYA HOOPER Department: 1 Room: 465 Gender: M [employer]: SHAILA : 1955 Requested By: BRADY DESAI Order Number: [id number] Reading MD: Fei Menjivar Measurements Intervals [place] Rate: 102 P: 71 ID: [id number] QRS: -30 QRSD: 156 T: 85 QT: 412 QTc: 537 Interpretive Statements SINUS TACHYCARDIA LEFT BUNDLE BRANCH BLOCK Electronically Signed On 03-20-2021 22:47:41 EST by Fei BARNETT SB CARDIOLOGY Fei Menjivar MD - 03/20/2021 [facility] Test Date: 2021-03-19 Pat Name: KATHYA HOOPER Department: 1 Room: 465 Gender: M [employer]: SHAILA : 1955 Requested By: BRADY DESAI Order Number: [id number] Reading MD: Fei Menjivar Measurements Intervals [place] Rate: 102 P: 71 ID: [id number] QRS: -30 QRSD: 156 T: 85 QT: 412 QTc: 537 Interpretive Statements SINUS TACHYCARDIA LEFT BUNDLE BRANCH BLOCK Electronically Signed On 03-20-2021 22:47:41 EST by Fei BARNETT Work Phone: EKG 12 Lead - Chest PainOrde red By: Fei Menjivar on 03-20-2021 [facility] Work Phone: Lactic Acidon 03-20-2021 Lactate [Moles/Vol] 0.7 mmol/L Normal 0.7-2.0 [facility] Comment on above: Performed By: #### H EMDF, BMP3 #### [facility] [address] [place] [address] Lactic Acid, Plasmaon 2020 Lactate [Moles/Vol] 0.7 mmol/L 0.7 - 2. 0 mmol/L [facility] Work Phone: Test Performed by [facility], [address] [place], [place] [address] [facility] LAB [facility] Work Phone: PROCALCITONINon 03-20-2021 Interpretation See Below [facility] Work Phone: Comment on above: PCT <0.50 = Low risk of severe sepsis and/or septic shock. PCT >2.00 = High risk of severe sepsis and/or septic shock. Interpretation and review of laboratory results Abnormal [facility] Work Phone: Test Performed by [facility], [address] [place] [id number] [place] [address] LAB [facility] Work Phone: Procalcitoninon 03-20-2021 Procalcitonin 0.14 ng/mL High 0.00-0.09 [facility] Work Phone: Comment on above: Performed By: #### H EMDF, BMP3 #### [facility] [address] [place] [address] Interpretation See Below Normal [facility] Comment on above: Result Comment: PCT <0.50 = Low risk of severe sepsis and/or septic shock. PCT >2.00 = High risk of severe sepsis and/or septic shock. Performed By: #### H EMDF, BMP3 #### [facility] [address] [place] [address] Troponinon 03-20-2021 Interpretation and review of laboratory results Abnormal [facility] Work Phone: Troponin I.cardiac [Mass/Vol] 0.037 ng/mL High 0.000 - 0.034 ng/mL [facility] Work Phone: Comment on above: . Test Performed by [facility], [address] [place], [place] [address] [facility] LAB [facility] Work Phone: Troponin Ion 03-20-2021 Troponin I.cardiac [Mass/Vol] 0.037 ng/mL High 0.000-0.034 [facility] Comment on above: Result Comment: . Performed By: #### H EMDF, BMP3 #### [facility] [address] [place] [address] Arterial Blood Gas Respirato yasmine 03-19-2021 Base Excess 1.2 mmol/L Normal -3.0-3.0 [facility] Comment on above: Performed By: #### B GLU #### [facility] [address] [place] [address] CO2 [Moles/Vol] 25.6 mmol/L Normal 23.0-27.0 [facility] Comment on above: Performed By: #### B GLU #### [facility] [address] [place] [address] FIO2 5 Normal [facility] Comment on above: Result Comment: Perf ormed by KEE ID: [id number] [place], [place] Performed By: #### B GLU #### [facility] [address] [place] [address] HCO3 (Bld) [Moles/Vol] 24.6 mmol/L Normal 21.0-25.0 [facility] Comment on above: Performed By: #### B GLU #### [facility] [address] [place] [address] Oxygen (Bld) [Partial pressure] 56.7 mm[Hg] Low 80.0-100.0 [facility] Comment on above: Performed By: #### B GLU #### [facility] [address] [place] [address] Oxygen saturation in Blood 91.0 % Low 95.0-100.0 [facility] Comment on above: Performed By: #### B GLU #### [facility] [address] [place] [address] pCO2 33.9 mm[Hg] Low 35.0-45.0 [facility] Comment on above: Performed By: #### B GLU #### [facility] [address] [place] [address] pH 7.468 High 7.350-7.450 [facility] Comment on above: Performed By: #### B GLU #### [facility] [address] [place] [address] Basic Metabolic Panelon 11-1 Anion gap [Moles/Vol] 9 mmol/L Normal 3-13 [facility] Comment on above: Performed By: #### B MP3, TROPN ####[facility] [place] [address] Calcium [Mass/Vol] 8.5 mg/dL Normal 8.4-10.4 [facility] Comment on above: Performed By: #### B MP3, TROPN ####[facility] [place] [address] CO2 [Moles/Vol] 26 mmol/L Normal 22-30 [facility] Comment on above: Performed By: #### B MP3, TROPN ####[facility] [place] [address] Creatinine [Mass/Vol] 0.48 mg/dL Low 0.52-1.25 [facility] Comment on above: Performed By: #### B MP3, TROPN ####[place] [address] [place] [address] eGFR OTHER > 90.0 Normal >60 [facility] Comment on above: Result Comment: [...] secretion. Performed By: #### B MP3, TROPN ####[facility] [place] [address] GFR/1.73 sq M.predicted among blacks MDRD (S/P/Bld) [Vol rate/Area] mL/min/{1.73_m2} Normal >60 [facility] Comment on above: Performed By: #### B MP3, TROPN ####[facility] [place] [address] Glucose [Mass/Vol] 132 mg/dL High 70-100 [facility] Comment on above: Performed By: #### B MP3, TROPN ####[facility] [place] [address] Urea nitrogen [Mass/Vol] 16 mg/dL Normal 7-17 [facility] Comment on above: Performed By: #### B MP3, TROPN ####[facility] [place] [address] Chloride [Moles/Vol] 102 mmol/L Normal 98-107 [facility] Comment on above: Performed By: #### B MP3, TROPN ####[facility] [place] [address] Potassium [Moles/Vol] 4.1 mmol/L Normal 3.5-5.1 [facility] Comment on above: Performed By: #### B MP3, TROPN ####[facility] [place] [address] Sodium [Moles/Vol] 137 mmol/L Normal 135-145 [facility] Comment on above: Performed By: #### B MP3, TROPN ####[facility] [place] [address] Anion gap [Moles/Vol] 9 mmol/L 3 - 13 mmol/L [facility] Calcium [Mass/Vol] 8.5 mg/dL 8.4 - 10. 4 mg/dL [facility] Chloride [Moles/Vol] 102 mmol/L 98 - 10 7 mmol/L [facility] CO2 [Moles/Vol] 26 mmol/L 22 - 30 mmol/L [facility] Creatinine [Mass/Vol] 0.48 mg/dL Low 0.52 - 1.25 mg/dL [facility] EGFR IF NonAfrican Malagasy >90.0 >60 mL/min [facility] Comment on above: KDIGO guidelines pro [...] - 17 mg/dL [facility] Test Performed by [facility], [address] [place] [id number] [place] [address] LAB [facility] CBC Auto Differentialon 03-01 Absolute Baso [...] and review of laboratory results Abnormal [facility] RSV PCR DETECTED Expected Result: Not Detected _ Method: Real-time, RT-PCR This assay was developed by [employer] and distributed under an Emergency Use Authorization (EUA) granted by the FDA for the qualitative detection of nucleic acids from SARS-CoV-2, Influenza A, Influenza B, and Respiratory Syncytial Virus. Provider and patient fact sheets can be found at https://www.fda.gov/m edia/027529/download and https://www.fda.gov/m edia/008271/download. Abnormal [facility] SARS-CoV-2 (COVID-19) RNA SHIRLEY+probe Ql (Unsp spec) Not detected [facility] Test Performed by [facility], [address] [place] [address] LAB [facility] CR Chest Portableon 03-19-20 21 CR Chest Portable Patient Name: KATHYA HOOPER Diagnostic Radiology ACCESSION EXAM DATE/TIME PROCEDURE ORDERING PROVIDER [id number] 03/19/2021 17:10 EST CR Chest Portable [id number] BRADY WILKINS CPT code 17949 Reason For Exam (CR Chest Portable) hypoxia [...] Transcribed Date and Time: 03/19/2021 5:22 Normal [facility] ED Provider Noteon ED Provider Note Emergency Department Encounter [facility] ED Patient: Kathya Hooper : 1955 Date of Evaluation: 03/19/2021 ED Provider: Brady Desai DO Chief Complaint Chief Complaint Patient presents with ? Shortness of Breath MECHOOPDA I wore appropriate PPE for the entirety [...] otherwise acutely negative except as in the MECHOOPDA. Past History Past Medical History: Diagnosis Date [...] and Family: Not on file ? Attends Yazidism Services: Not on file ? Active Member [...] TABLET T (more content not included)... Normal [facility] Hemogram w/ Autodiffon 03-19 Abs Baso Cnt 0.1 10*3/uL Normal 0.0-0.2 [facility] Comment on above: Performed By: #### B GLU #### [facility] [address] [place] [address] Abs Neutrophile Cnt 7.2 10*3/uL High 1.8-7.0 [facility] Comment on above: Performed By: #### B GLU #### [facility] [address] [place] [address] Basophils/100 WBC (Bld) 0.6 % Normal 0.0-2.0 [facility] Comment on above: Performed By: #### B GLU #### [facility] [address] [place] [address] Eosinophils (Bld) [#/Vol] 0.0 10*3/uL Normal 0.0-0.5 [facility] Comment on above: Performed By: #### B GLU #### [facility] [address] [place] [address] Eosinophils/100 WBC (Bld) 0.2 % Low 1.0-6.0 [facility] Comment on above: Performed By: #### B GLU #### [facility] [address] [place] [address] Erythrocyte distribution width (RBC) [Ratio] 13.0 % Normal 11.5-14.5 [facility] Comment on above: Performed By: #### B GLU #### [facility] [address] [place] [address] Granulocytes/100 WBC (Bld) 79.0 % Normal 40.0-80.0 [facility] Comment on above: Performed By: #### B GLU #### [facility] [address] [place] [address] Hematocrit (Bld) [Volume fraction] 38.5 % Low 40.0-52.0 [facility] Comment on above: Performed By: #### B GLU #### [facility] [address] [place] [address] Hemoglobin (Bld) [Mass/Vol] 13.1 g/dL Normal 13.0-18.0 [facility] Comment on above: Performed By: #### B GLU #### [place] [address] [place] [address] Lymphocytes (Bld) [#/Vol] 1.0 10*3/uL Normal 1.0-4.3 [facility] Comment on above: Performed By: #### B GLU #### [place] [address] [place] [address] Lymphocytes/100 WBC (Bld) 10.8 % Low 20.0-40.0 [facility] Comment on above: Performed By: #### B GLU #### [place] [address] [place] [address] MCH (RBC) [Entitic mass] 30.9 pg Normal 26.0-34.0 [facility] Comment on above: Performed By: #### B GLU #### [place] [address] [place] [address] MCHC 33.9 % Normal 32.0-36.0 [facility] Comment on above: Performed By: #### B GLU #### [place] [address] [place] [address] MCV (RBC) [Entitic vol] 91.1 fL Normal 80.0-98.0 [facility] Comment on above: Performed By: #### B GLU #### [place] [address] [place] [address] Monocytes (Bld) [#/Vol] 0.9 10*3/uL High 0.0-0.8 [facility] Comment on above: Performed By: #### B GLU #### [place] [address] [place] [address] Monocytes/100 WBC (Bld) 9.4 % Normal 2.0-10.0 [facility] Comment on above: Performed By: #### B GLU #### [place] [address] [place] [address] Platelet mean volume (Bld) [Entitic vol] 9.9 fL Normal 7.4-10.4 [facility] Comment on above: Performed By: #### B GLU #### [facility] [address] [place] [address] Platelets (Bld) [#/Vol] 163 10*3/uL Normal 140-440 [facility] Comment on above: Performed By: #### B GLU #### [facility] [address] [place] [address] RBC (Bld) [#/Vol] 4.23 10*6/uL Low 4.40-5.90 [facility] Comment on above: Performed By: #### B GLU #### [facility] [address] [place] [address] WBC (Bld) [#/Vol] 9.1 10*3/uL Normal 3.6-10.7 [facility] Comment on above: Performed By: #### B GLU #### [facility] [address] [place] [address] Lactic Acidon 03-19-2021 Lactate [Moles/Vol] 2.3 mmol/L Critically high 0.7-2.0 [facility] Comment on above: Performed By: #### L ACT3 ####[facility] [place] [address] Lactic Acid, Plasmaon 2020 Lactate [Moles/Vol] 2.3 mmol/L Critically high 0.7 - 2.0 mmol/L [facility] No Panel Informationon 03-19 Interpretation and review of laboratory results Abnormal [facility] Test Performed by [facility], [address] [place] [address] [facility] LAB [facility] RBC MORPHOLOGYon 03-19-2021 Poikilocytes Slight [facility] RBC (Bld) [#/Vol] ABNORMAL [facility] Tear Drop Cells Slight [facility] RBC Morphologyon 03-19-2021 Ovalocytes Slight Normal [facility] Comment on above: Performed By: #### B GLU #### [facility] [address] [place] [address] Poikilocytosis Slight Normal [facility] Comment on above: Performed By: #### B GLU #### [facility] [address] [place] [address] Polychromasia Slight Normal [facility] Comment on above: Performed By: #### B GLU #### [facility] [address] [place] [address] RBC morphology finding Nom (Bld) ABNORMAL Normal [facility] Comment on above: Performed By: #### B GLU #### [facility] [address] [place] [address] Tear Drop Forms Slight Normal [facility] Comment on above: Performed By: #### B GLU #### [facility] [address] [place] [address] Respiratory Panel, Molecular , with COVID-19 (Restricted: peds pts or suitable admitted adults)on 03-19-2021 Interpretation and review of laboratory results Abnormal [facility] Respiratory Panel Molecular, with COVID POSITIVE: Respiratory Syncytial Virus DETECTED. _ Expected Result: Not Detected [employer] Upper Respiratory Pathogens PCR Panel can detect the following targets: SARS-CoV-2, Adenovirus, Coronavirus 229E, Coronavirus HKU1, Coronavirus NL63, Coronavirus OC43, Human Metapneumovirus, Human Rhinovirus/Enteroviru s, Influenza A, Influenza B, Parainfluenza Virus 1, Parainfluenza Virus 2, Parainfluenza Virus 3, Parainfluenza Virus 4, Respiratory Syncytial Virus, Bordetella pertussis, Bordetella parapertussis, Chlamydia pneumoniae, Mycoplasma pneumoniae. Method: Real-time PCR. Abnormal [facility] Test Performed by [facility], [address] [place] [address], [place] [id number] [place] [address] LAB [facility] SARS-CoV-2, Flu A/B and RSVo n 03-19-2021 SARS-CoV-2 (COVID-19) RNA SHIRLEY+probe Ql (Unsp spec) SARS-CoV-2 --> Status: F Not Detected. Flu A PCR --> Status: F Not Detected. Flu B PCR --> Status: F Not Detected. RSV PCR --> Status: F DETECTED Expected Result: Not Detected _ Method: Real-time, RT-PCR This assay was developed by [employer] and distributed under an Emergency Use Authorization (EUA) granted by the FDA for the qualitative detection of nucleic acids from SARS-CoV-2, Influenza A, Influenza B, and Respiratory Syncytial Virus. Provider and patient fact sheets can be found at https://www.[facility].gov/m edia/252806/download and https://www.[facility].gov/ edia/142060/download. Expected Result: Not Detected _ Method: Real-time, RT-PCR This assay was developed by [employer] and distributed under an Emergency Use Authorization (EUA) granted by the FDA for the qualitative detection of nucleic acids from SARS-CoV-2, Influenza A, Influenza B, and Respiratory Syncytial Virus. Provider and patient fact sheets can be found at https://www.[facility].gov/m edia/210698/download and https://www.[facility].gov/ edia/379196/download. Abnormal [facility] Comment on above: Performed By: #### C VFLR #### [facility] [address] [place] [address] , [address] Troponinon 03-19-2021 Troponin I.cardiac [Mass/Vol] 0.017 ng/mL 0.000 - 0.034 ng/mL [facility] Comment on above: . Test Performed by [facility], [address] [place] [address] [place], [place] [address] [facility] LAB [facility] Troponin Ion 03-19-2021 Troponin I.cardiac [Mass/Vol] 0.017 ng/mL Normal 0.000-0.034 [facility] Comment on above: Result Comment: . Performed By: #### B MP3, TROPN ####[facility] [place] [address] XR CHEST PORTABLEon 03-19-20 21 Patient Name: KATHYA HOOPER Diagnostic Radiology ACCESSION EXAM DATE/TIME PROCEDURE ORDERING PROVIDER [id number] 03/19/2021 17:10 EST CR Chest Portable [id number] BRADY WILKINS CPT code 00893 Reason For Exam (CR Chest Portable) hypoxia [...] MD - 03/19/2021 Patient [facility]: [id number] Diagnostic Radiology ACCESSION EXAM DATE/TIME PROCEDURE ORDERING PROVIDER [id number] 03/19/2021 17:10 EST CR Chest Portable [id number] -BRADY DESAI CPT code 22219 Reason For Exam (CR Chest Portable) hypoxia [...] Transcribed Date and Time: 03/19/2021 5:22 [facility] Work Phone: Radiology Study observation (narrative) [facility] Work Phone: XR CHEST PORTABLEOrdered By: Keshawn Simpson on 03-19-2021 [facility] Work Phone: Basic Metabolic Panelon 03-01 Calcium [Mass/Vol] 8.4 mg/dL Normal 8.4-10.4 [facility] Comment on above: Performed By: #### H EMD, BMP3 #### [facility] [address] [place] [address] Glucose [Mass/Vol] 110 mg/dL High 70-100 [facility] Comment on above: Performed By: #### H EMDF, BMP3 #### [facility] [address] [place] [address] Anion gap [Moles/Vol] 7 mmol/L Normal 3-13 [facility] Comment on above: Performed By: #### H EMDF, BMP3 #### [facility] [address] [place] [address] CO2 [Moles/Vol] 26 mmol/L Normal 22-30 [facility] Comment on above: Performed By: #### H EMDF, BMP3 #### [facility] [address] [place] [address] Creatinine [Mass/Vol] 0.54 mg/dL Normal 0.52-1.25 [facility] Comment on above: Performed By: #### H ALCIRAF, BMP3 #### [facility] [address] [place] [address] eGFR OTHER > 90.0 Normal >60 [facility] Comment on above: Result Comment: [...] Performed By: #### H EMDF, BMP3 #### [facility] [address] [place] [address] GFR/1.73 sq M.predicted among blacks MDRD (S/P/Bld) [Vol rate/Area] mL/min/{1.73_m2} Normal >60 [facility] Comment on above: Performed By: #### H EMDF, BMP3 #### [facility] [address] [place] [address] Urea nitrogen [Mass/Vol] 18 mg/dL High 7-17 [facility] Comment on above: Performed By: #### H EMDF, BMP3 #### [facility] [address] [place] [address] Potassium [Moles/Vol] 3.9 mmol/L Normal 3.5-5.1 [facility] Comment on above: Performed By: #### H ALCIRAF, BMP3 #### [facility] [address] [place] [address] Chloride [Moles/Vol] 104 mmol/L Normal 98-107 [facility] Comment on above: Performed By: #### H ALCIRAF, BMP3 #### [facility] [address] [place] [address] Sodium [Moles/Vol] 137 mmol/L Normal 135-145 [facility] Comment on above: Performed By: #### H MAYKEL, BMP3 #### [facility] [address] [place] [address] Anion gap [Moles/Vol] 7 mmol/L 3 - 13 mmol/L [facility] Calcium [Mass/Vol] 8.4 mg/dL 8.4 - 10. 4 mg/dL [facility] Chloride [Moles/Vol] 104 mmol/L 98 - 10 7 mmol/L [facility] CO2 [Moles/Vol] 26 mmol/L 22 - 30 mmol/L [facility] Creatinine [Mass/Vol] 0.54 mg/dL 0.52 - 1.25 mg/dL [facility] EGFR IF NonAfrican Malagasy >90.0 >60 mL/min [facility] Comment on above: KDIGO guidelines pro [...] - 125 pg/mL [facility] Test Performed by [facility], [address] [place] [id number] [place] [address] LAB [facility] CBC Auto Differentialon 03-01 Absolute Baso [...] - 10.7 10*3/uL [facility] Test Performed by [facility], [address] [place] [id number] [place] [address] LAB [facility] COVID-19, Flu A/B, and RSV C [facility] 03-18-2021 Influenza A by PCR Not detected [facility] Influenza B by PCR Not detected [facility] Interpretation and review of laboratory results Abnormal [facility] RSV PCR DETECTED Expected Result: Not Detected _ Method: Real-time, RT-PCR This assay was developed by [employer] and distributed under an Emergency Use Authorization (EUA) granted by the FDA for the qualitative detection of nucleic acids from SARS-CoV-2, Influenza A, Influenza B, and Respiratory Syncytial Virus. Provider and patient fact sheets can be found at https://www.fda.gov/m edia/346747/download and https://www.fda.gov/m edia/389665/download. Abnormal [facility] SARS-CoV-2 (COVID-19) RNA SHIRLEY+probe Ql (Unsp spec) Not detected [facility] Test Performed by [facility], [address], [place], [place] [address] [facility] LAB [facility] CR Chest Portableon 03-18-20 21 CR Chest Portable Patient Name: KATHYA HOOPER Diagnostic Radiology ACCESSION EXAM DATE/TIME PROCEDURE ORDERING PROVIDER [id number] 03/18/2021 15:30 EST CR Chest Portable [id number] -BOO CASTRO CPT code 48134 Reason For Exam (CR Chest Portable) sob, [...] Transcribed Date and Time: 03/18/2021 3:35 Normal [facility] CTA Chest W WO (PE study)on 03-18-2021 Patient Name: KATHYA HOOPER Computed Tomography ACCESSION EXAM DATE/TIME PROCEDURE ORDERING PROVIDER [id number] 03/18/2021 16:27 EST CTA Chest w/ + w/o [id number] ZAFAR CPT code 66622 Q9967 Reason For Exam (CTA Chest w/ [...] MALAY Transcribed Date and Time: 03/18/2021 4:36 [facility] Malcolm Michaels MD - 03/18/2021 Patient Name: KATHYA HOOPER Computed Tomography ACCESSION EXAM DATE/TIME PROCEDURE ORDERING PROVIDER [id number] 03/18/2021 16:27 EST CTA Chest w/ + w/o [id number] Alyson ARCHIBALD CPT code 95616 Q9967 Reason For Exam (CTA Chest w/ [...] Tomography ACCESSION EXAM DATE/TIME PROCEDURE ORDERING PROVIDER [id number] 03/18/2021 16:27 EST CTA Chest w/ + w/o [id number] -CASTRO, Contrast BOO CPT code 30396 Q9967 Reason For Exam (CTA Chest w/ [...] Transcribed Date and Time: 03/18/2021 4:36 Normal [facility] CTA HEAD NECK W WO CONTRASTo n 03-18-2021 Patient Name: KATHYA HOOPER Computed Tomography ACCESSION EXAM DATE/TIME PROCEDURE ORDERING PROVIDER [id number] 03/18/2021 16:26 EST CTA Head/Neck w/ + w/o [id number] -CASTRO, contrast BOO CPT code 28821 05953 Q9967 Reason For Exam (CTA Head/Neck w/ + w/o contrast) AMS, dysphasia and ?aphasia possibly since yesterday- very poor historian from fdc w/ unclear prior deficits - here w/ [...] OSAMA Transcribed Date and Time: 03/18/2021 4:52 [facility] RAD Greyson Rai MD - 03/18/2021 Patient Name: KATHYA HOOPER Computed Tomography ACCESSION EXAM DATE/TIME PROCEDURE ORDERING PROVIDER [id number] 03/18/2021 16:26 EST CTA Head/Neck w/ + w/o [id number] -alyson CASTRO CPT code 64964 43643 Q9967 Reason For Exam (CTA Head/Neck w/ + w/o contrast) AMS, dysphasia and ?aphasia possibly since yesterday- very poor historian from fdc w/ unclear prior deficits - here w/ [...] 03/18/2021 4:51 pm Signed by: MD PRESTON, WASSIM OSAMA Transcribed Date and Time: 03/18/2021 4:52 [facility] Work Phone: Radiology Study observation (narrative) [facility] Work Phone: CTA HEAD NECK W WO CONTRASTO rdered By: Greyson Rai on 03-18-2021 [facility] Work Phone: CTA Head/Neck w/ + w/o contr birgit 03-18-2021 CTA Head/Neck w/ + w/o contrast Patient Name: KATHYA HOOPER Computed Tomography ACCESSION EXAM DATE/TIME PROCEDURE ORDERING PROVIDER [id number] 03/18/2021 16:26 EST CTA Head/Neck w/ + w/o [id number] -alyson CASTRO CPT code 40651 88878 Q9967 Reason For Exam (CTA Head/Neck w/ + w/o contrast) AMS, dysphasia and ?aphasia possibly since yesterday- very poor historian from fdc w/ unclear prior deficits - here w/ [...] Transcribed Date and Time: 03/18/2021 4:52 Normal [facility] ED Provider Noteon ED Provider Note [facility] EMERGENCY DEPARTMENT ENCOUNTER Pt Name: Kathya [...] dependant for dysphagia, presenting via EMS from [facility] with complaint of AMS, garbled [...] Vaping Us (more content not included)... Normal [facility] Hemogram w/ Autodiffon 03-18 Abs Baso Cnt 0.0 10*3/uL Normal 0.0-0.2 [facility] Comment on above: Performed By: #### H EMDF, BMP3 #### [facility] [address] [place] [address] Abs Neutrophile Cnt 7.3 10*3/uL High 1.8-7.0 [facility] Comment on above: Performed By: #### H EMDF, BMP3 #### [facility] [address] [place] [address] Basophils/100 WBC (Bld) 0.5 % Normal 0.0-2.0 [facility] Comment on above: Performed By: #### H EMDF, BMP3 #### [facility] [address] [place] [address] Eosinophils (Bld) [#/Vol] 0.0 10*3/uL Normal 0.0-0.5 [facility] Comment on above: Performed By: #### H EMDF, BMP3 #### [facility] [address] [place] [address] Eosinophils/100 WBC (Bld) 0.1 % Low 1.0-6.0 [facility] Comment on above: Performed By: #### H EMDF, BMP3 #### [facility] [address] [place] [address] Erythrocyte distribution width (RBC) [Ratio] 12.9 % Normal 11.5-14.5 [facility] Comment on above: Performed By: #### H EMDF, BMP3 #### [facility] [address] [place] [address] Granulocytes/100 WBC (Bld) 82.8 % High 40.0-80.0 [facility] Comment on above: Performed By: #### H EMDF, BMP3 #### [facility] [address] [place] [address] Hematocrit (Bld) [Volume fraction] 38.3 % Low 40.0-52.0 [facility] Comment on above: Performed By: #### H EMDF, BMP3 #### [facility] [address] [place] [address] Hemoglobin (Bld) [Mass/Vol] 13.6 g/dL Normal 13.0-18.0 [facility] Comment on above: Performed By: #### H EMDF, BMP3 #### [facility] [address] [place] [address] Lymphocytes (Bld) [#/Vol] 0.7 10*3/uL Low 1.0-4.3 [facility] Comment on above: Performed By: #### H EMDF, BMP3 #### [facility] [address] [place] [address] Lymphocytes/100 WBC (Bld) 7.6 % Low 20.0-40.0 [facility] Comment on above: Performed By: #### H EMDF, BMP3 #### [facility] [address] [place] [address] MCH (RBC) [Entitic mass] 32.0 pg Normal 26.0-34.0 [facility] Comment on above: Performed By: #### H EMDF, BMP3 #### [facility] [address] [place] [address] MCHC 35.4 % Normal 32.0-36.0 [facility] Comment on above: Performed By: #### H EMDF, BMP3 #### [facility] [address] [place] [address] MCV (RBC) [Entitic vol] 90.2 fL Normal 80.0-98.0 [facility] Comment on above: Performed By: #### H EMDF, BMP3 #### [facility] [address] [place] [address] Monocytes (Bld) [#/Vol] 0.8 10*3/uL Normal 0.0-0.8 [facility] Comment on above: Performed By: #### H EMDF, BMP3 #### [facility] [address] [place] [address] Monocytes/100 WBC (Bld) 9.0 % Normal 2.0-10.0 [facility] Comment on above: Performed By: #### H EMDF, BMP3 #### [facility] [address] [place] [address] Platelet mean volume (Bld) [Entitic vol] 9.8 fL Normal 7.4-10.4 [facility] Comment on above: Performed By: #### H EMDF, BMP3 #### [facility] [address] [place] [address] Platelets (Bld) [#/Vol] 129 10*3/uL Low 140-440 [facility] Comment on above: Performed By: #### H EMDF, BMP3 #### [facility] [address] [place] [address] RBC (Bld) [#/Vol] 4.24 10*6/uL Low 4.40-5.90 [facility] Comment on above: Performed By: #### H EMDF, BMP3 #### [facility] [address] [place] [address] WBC (Bld) [#/Vol] 8.8 10*3/uL Normal 3.6-10.7 [facility] Comment on above: Performed By: #### H EMDF, BMP3 #### [facility] [address] [place] [address] MAGNESIUMon 03-18-2021 Magnesium [Mass/Vol] 2.0 mg/dL 1.6 - 2 .3 mg/dL [facility] Magnesiumon 03-18-2021 Magnesium [Mass/Vol] 2.0 mg/dL Normal 1.6-2.3 [facility] Comment on above: Performed By: #### H MITALI BRAR #### [facility] [address] [place] [address] NT pro BNPon 03-18-2021 Natriuretic peptide B (Bld) [Mass/Vol] 710 pg/mL High 0-125 [facility] Comment on above: Performed By: #### H MITALI BRAR #### [facility] [address] [place] [address] No Panel Informationon 03-18 Test Performed by [facility], [facility] [address] [place], [place] [id number] [place] [address] LAB [facility] PROTIME/INR & PTTon 03-18-20 aPTT Coag (Bld) [Time] 30.7 s High 20.0 - 30.5 s [facility] Comment on above: NOTE: The therapeuti c time for Heparin anticoagulation, based on Xa activity inhibition, is an APTT of 46-80 seconds. INR Coag (Bld) [Relative time] 1.1 {INR} [facility] Comment on above: Recommended Anticoag ulant [...] and review of laboratory results Abnormal [facility] PT Coag (PPP) [Time] 11.4 s 9.0 - 12.0 s [facility] Comment on above: . Test Performed by [facility], [facility] [address] [place], [place] [id number] [place] [address] LAB [facility] Protime AND APTTon aPTT Coag (Bld) [Time] 30.7 s High 20.0-30.5 [facility] Comment on above: Result Comment: NOTE : The therapeutic time for Heparin anticoagulation, based on Xa activity inhibition, is an APTT of 46-80 seconds. Performed By: #### H MITALI BRAR #### [facility] [address] [facility] [place] [address] INR 1.1 Normal 0.9-1.1 [facility] Comment on above: Result Comment: [...] Myocardial Infarction Performed By: #### H EMDF, BMP3 #### [facility] [address] [place] [address] PT Coag (PPP) [Time] 11.4 s Normal 9.0-12.0 [facility] Comment on above: Result Comment: . Performed By: #### H ALCIRAF, BMP3 #### [facility] [address] [place] [address] SARS-CoV-2, Flu A/B and RSVo n 03-18-2021 SARS-CoV-2 (COVID-19) RNA SHIRLEY+probe Ql (Unsp spec) SARS-CoV-2 --> Status: F Not Detected. Flu A PCR --> Status: F Not Detected. Flu B PCR --> Status: F Not Detected. RSV PCR --> Status: F DETECTED Expected Result: Not Detected _ Method: Real-time, RT-PCR This assay was developed by [employer] and distributed under an Emergency Use Authorization (EUA) granted by the FDA for the qualitative detection of nucleic acids from SARS-CoV-2, Influenza A, Influenza B, and Respiratory Syncytial Virus. Provider and patient fact sheets can be found at https://www.fda.gov/m edia/849819/download and https://www.fda.gov/m edia/569085/download. Expected Result: Not Detected _ Method: Real-time, RT-PCR This assay was developed by [employer] and distributed under an Emergency Use Authorization (EUA) granted by the FDA for the qualitative detection of nucleic acids from SARS-CoV-2, Influenza A, Influenza B, and Respiratory Syncytial Virus. Provider and patient fact sheets can be found at https://www.[facility].gov/m edia/180125/download and https://www.fda.gov/m edia/737404/download. Abnormal [facility] Comment on above: Performed By: #### C VFLR #### [facility] [address] [place] [address] , [address] TS GELon 03-18-2021 TS GEL ABO Group: O Rh, Gel: POS Antibody Screen Gel: NEG Normal [facility] Comment on above: Performed By: #### T SGL #### [facility] TYPE AND SCREENon 03-18-2021 ABO Grouping O [facility] Rh Type Positive [facility] Test Performed by [facility], [address], [place], [place] [address] [facility] CHEST PORTABLEon 03-18-20 Patient Name: KATHYA HOOPER Diagnostic Radiology ACCESSION EXAM DATE/TIME PROCEDURE ORDERING PROVIDER [id number] 03/18/2021 15:30 EST CR Chest Portable [id number] -BOO CASTRO CPT code 22658 Reason For Exam (CR Chest Portable) sob, [...] KRIKOR Transcribed Date and Time: 03/18/2021 3:35 [facility] Alejandra Turner MD - 03/18/2021 Patient Name: KATHYA HOOPER Diagnostic Radiology ACCESSION EXAM DATE/TIME PROCEDURE ORDERING PROVIDER [id number] 03/18/2021 15:30 EST CR Chest Portable [id number] -BOO CASTRO CPT code 52288 Reason For Exam (CR Chest Portable) sob, [...] was seen and treated independently by the certified professional coder. I was present and available in the [...] Diagnosis Date ? TREVER (acute kidney injury) ([facility]) ? Alcohol abuse 07/08/2018 ? [...] Strain: ? (more content not included)... Normal [facility] [place] GI TUBE EVALUATION W CONT RASTOrdered By: Helen Toledo on 10-30-2020 Patient Name: KATHYA HOOPER Fluoroscopy ACCESSION EXAM DATE/TIME PROCEDURE ORDERING PROVIDER [id number] 10/30/2020 15:07 EDT RF Intro Long GI Tube w/ KRISTA TOLEDO AMY L Fluoro CPT code 57287 Reason For Exam (RF Intro Long GI [...] Transcribed Date and Time: 10/30/2020 4:06 [facility] Work Phone: Jaquan, [facility] Incoming Radiology Results From [facility] - 10/30/2020 4:07 PM EDT Patient Name: KATHYA HOOPER Fluoroscopy ACCESSION EXAM DATE/TIME PROCEDURE ORDERING PROVIDER [id number] 10/30/2020 15:07 EDT RF Intro Long GI Tube w/ KRISTA TOLEDO AMY L Fluoro CPT code 41500 Reason For Exam (RF Intro Long GI [...] and Time: 10/30/2020 4:06 [facility] Work Phone: [facility] Work Phone: RF Intro Long GI Tube w/ Flu oroon 10-30-2020 RF Intro Long GI Tube w/ Fluoro Patient Name: KATHYA HOOPER Fluoroscopy ACCESSION EXAM DATE/TIME PROCEDURE ORDERING PROVIDER [id number] 10/30/2020 15:07 EDT RF Intro Long GI Tube w/ KRISTA TOLEDO AMY L Fluoro CPT code 67184 Reason For Exam (RF Intro Long GI [...] J Transcribed Date and Time: 10/30/2020 4:06 [facility] ED Provider Noteon ED Provider [...] Diagnosis Date ? TREVER (acute kidney injury) ([facility]) ? Alcohol abuse 07/08/2018 ? [...] Gatherings with Friends and Family: ? Attends Yazidism Services: ? Active Member of Clubs or [...] Soft, non-distended (more content not included)... Normal [facility] GI TUBE EVALUATION W CONT RASTOrdered By: Elizabeth Moura on 09-22-2020 Patient Name: KATHYA HOOPER Fluoroscopy ACCESSION EXAM DATE/TIME PROCEDURE ORDERING PROVIDER [id number] 09/22/2020 04:09 EDT RF Intro Long GI Tube w/ 5816 -ELIZABETH MOURA CPT code 49892 Reason For Exam (RF Intro Long GI [...] Jaquan, [facility] Incoming Radiology Results From [facility] - 09/22/2020 5:11 AM EDT Patient Name: KATHYA HOOPER Fluoroscopy ACCESSION EXAM DATE/TIME PROCEDURE ORDERING PROVIDER [id number] 09/22/2020 04:09 EDT RF Intro Long GI Tube w/ 58ELIZABETH LU CPT code 41348 Reason For Exam (RF Intro Long GI [...] on --- Final --- Dictating Physician: MD EJRNIGAN JEFFREY Signed Date and Time: 09/22/2020 5:09 am Signed by: MD JERNIGAN JEFFREY Transcribed Date and Time: 09/22/2020 5:11 [facility] Work Phone: [facility] Work Phone: RF Intro Long GI Tube w/ Flu oroon 09-22-2020 RF Intro Long GI Tube w/ Fluoro Patient Name: KATHYA HOOPER Fluoroscopy ACCESSION EXAM DATE/TIME PROCEDURE ORDERING PROVIDER [id number] 09/22/2020 04:09 EDT RF Intro Long GI Tube w/ 5816 -ELIZABETH MOURA Bob CPT code 50127 Reason For Exam (RF Intro Long GI [...] JEFFREY Transcribed Date and Time: 09/22/2020 5:11 [facility] ED Provider Noteon ED Provider Note [facility] ED EMERGENCY DEPARTMENT ENCOUNTER Pt Name: Kathya Hopoer Birthdate 1955 Date of evaluation: 06/26/2020 Provider: [...] otherwise acutely negative except as in the [place]OP[place]. PAST MEDICAL HISTORY Past Medical History: Diagnosis [...] (AQUAPHOR) ointment Apply topically as needed. Balsam Froilan[employer] Oil (VENELEX) OINT ointment Apply topically every [...] file Gets together: Not on file Attends congregational service: Not on file Active member of [...] for level (more content not included)... Normal [facility] [place] GI TUBE EVALUATION Zulma Warner 06-26-2020 Patient Name: KATHYA HOOPER Fluoroscopy ACCESSION EXAM DATE/TIME PROCEDURE ORDERING PROVIDER [id number] 06/26/2020 20:20 EST RF Intro Long GI Tube w/ [id number] -ABELARDO RIOS Fluoro CPT code 10702 Reason For Exam (RF Intro Long GI [...] Jaquan, [facility] Incoming Radiology Results From [facility] - 06/26/2020 9:16 PM EST Patient Name: KATHYA HOOPER Fluoroscopy ACCESSION EXAM DATE/TIME PROCEDURE ORDERING PROVIDER [id number] 06/26/2020 20:20 EST RF Intro Long GI Tube w/ 407575 -ABELARDO RIOS CPT code 27442 Reason For Exam (RF Intro Long GI [...] B Transcribed Date and Time: 06/26/2020 9:16 [facility] Work Phone: Feeding Tubeon 06-26-2020 Abelardo [...] Fluoroscopy ACCESSION EXAM DATE/TIME PROCEDURE ORDERING PROVIDER [id number] 06/26/2020 20:20 EST RF Intro Long GI Tube w/ 195084 -ABELARDO RIOS CPT code 41212 Reason For Exam (RF Intro Long GI [...] Transcribed Date and Time: 06/26/2020 9:16 Normal [facility] Clinical Summary: HMSPatient IDon 05-22-2019 WOP [facility] Work Phone: Office Visit: New - 1st visi t with practice, Rm: 2on 05-22-2019 NEGATED: Highlighted rowCT scan history of the right lower extremity on 05/16/2019 at [facility] Work Phone: NEGATED: Highlighted rowTobacco smoking status NHIS current someday smoker [facility] [place] Work Phone: NEGATED: Highlighted rowxray history of the pelvis with hip on 05/11/2019 at [facility] , of the pelvis on 05/13/2019 at [facility] Work Phone: CT LOWER EXTREMITY RIGHT WO CONTRASTOrdered By: Elizabeth Moura on 05-16-2019 Patient Name: KATHYA HOOPER ---CT--- Exam Date/Time 05/16/2019 21:10:[address] Low Ext w/o Contrast Right Ordering Physician ELIZABETH BARKER Accession Number [id number] CPT4 Codes 17800 () Reason For Exam right hip pain, [...] Transcribed Date and Time: 05/16/2019 9:24 [facility] Work Phone: [facility], [facility] From [facility] - 05/16/2019 9:24 PM EST Patient Name: KATHYA HOOPER ---CT--- Exam Date/Time 05/16/2019 21:10:[address] Low Ext w/o Contrast Right Ordering Physician ELIZABETH BARKER Accession Number [id number] CPT4 Codes 48142 () Reason For Exam right hip pain, [...] Transcribed Date and Time: 05/16/2019 9:24 [facility] Work Phone: Differential,Body Fluidson 0 09-27-2018 Other Cells 46 % Normal [facility] Comment on above: Result Comment: Bloo dy specimen with reactive mesothelial cells and chronic inflammation with occasional hemophagocytosis. 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 [address] CULTURE AND STAIN - FLUIDon 09-25-2018 CULTURE AND STAIN - FLUID CULTURE & STAIN - FLUID --> Status: F No growth at 5 days. STAIN GRAM --> Status: F Moderate polymorphonuclear cells/lpf. Moderate mononuclear cells/lpf No organisms seen. Cytocentrifugation performed. Moderate mononuclear cells/lpf No organisms seen. Cytocentrifugation performed. Normal [facility] Comment on above: Performed By: #### H EMDF, PT, BMP3M, PHOS3, MG3, CK3 #### [facility] [address] [place], [place] #### VD25H #### [facility] [address] [place] [address] Cell Count,Body Fluidon 05-2 Nucleated Cells 2391 {cells}/uL Normal [facility] Comment on above: Performed By: #### H EMDF, PT, BMP3M, PHOS3, MG3, CK3 #### [place] [address] [address] [place], [place] #### VD25H #### [facility] [address] [place] [address] RBC [place] [address] {RBC}/uL Normal [facility] Comment on above: Performed By: #### H EMDF, PT, BMP3M, PHOS3, MG3, CK3 #### [place] [address] [address] [place], [place] #### VD25H #### [facility] [address] [place] [address] Fluid Type Thoracentesis Normal [facility] Comment on above: Performed By: #### H EMDF, PT, BMP3M, PHOS3, MG3, CK3 #### [place] [address] [address] [place], [place] #### VD25H #### [facility] [address] [place] [address] Differential,Body Fluidson 0 09-25-2018 Lymphocytes/100 WBC (Bld) 28 % Normal [facility] Comment on above: Performed By: #### H EMDF, PT, BMP3M, PHOS3, MG3, CK3 #### [place] [address] [address] [place], [place] #### VD25H #### [facility] [address] [place] [address] Monocytes/100 WBC (Bld) 1 % Normal [facility] Comment on above: Performed By: #### H EMDF, PT, BMP3M, PHOS3, MG3, CK3 #### [facility] [address] [place], [place] #### VD25H #### [facility] [address] [place] [address] Neutrophils/100 WBC (Bld) 25 % Normal [facility] Comment on above: Performed By: #### H EMDF, PT, BMP3M, PHOS3, MG3, CK3 #### [place] [address] [place], [place] #### VD25H #### [facility] [address] [place] [address] Cells Counted for Diff 100 Normal [facility] Comment on above: Performed By: #### H EMDF, PT, BMP3M, PHOS3, MG3, CK3 #### [address] #### VD25H #### [facility] [address] [place] [address] LDH, Body Fluidon 09-25-2018 LDH, Body Fluid 174 U/L Normal No Range [facility] Comment on above: Performed By: #### H EMDF, PT, BMP3M, PHOS3, MG3, CK3 #### [place] [address] [address] [place], [place] #### VD25H #### [facility] [address] [place] [address] Protein, Total Body Fluidon 09-25-2018 Protein,Total-Body Fld 3.4 g/dL Normal No Range [facility] Comment on above: Performed By: #### H EMDF, PT, BMP3M, PHOS3, MG3, CK3 #### [address] #### VD25H #### [facility] [address] [place] [address] US Thora-Aspir Pleura w/ Evelin geon 09-25-2018 US Thora-Aspir Pleura w/ Image Patient Name: KATHYA HOOPER Ultrasound Exam Date/Time 09/25/2018 13:23:41 EDT Exam US Thora-Aspir Pleura w/ Image Ordering Physician SALO DAVIS Accession Number [id number] CPT4 Codes 91483 () Reason For Exam pleural effusion Report [...] Transcribed Date and Time: 09/25/2018 3:07 Normal [facility] CULTURE MYCOBACTERIAon 09-03 CULTURE MYCOBACTERIA CULTURE MYCOBACTERI A --> Status: F No acid-fast bacilli isolated after 6 weeks incubation. Normal [facility] Comment on above: Performed By: #### H EMDF, PT, BMP3M, PHOS3, MG3, CK3 #### [address] [address] #### VD25H #### [facility] [address] [place] [address] CULTURE URINEon 08-23-2018 CULTURE URINE CULTURE URINE --> Status: F No growth (<1,000 CFU/ml). Normal [facility] Comment on above: Order Comment: Speci men Source Comment:Urine, clean catch Performed By: #### H EMDF, PT, BMP3M, PHOS3, MG3, CK3 #### [facility] [address] [place] [address] #### VD25H #### [facility] [address] [place] [address] CR Chest Portableon 08-23-19 19 CR Chest Portable Patient Name: KATHYA HOOPER Diagnostic Radiology Exam Date/Time 08/22/2018 07:07:07 EDT Exam CR Chest Portable Ordering Physician [id number] KHANNA Accession Number [id number] CPT4 Codes 42242 () Reason For Exam dyspnea Report Portable [...] Transcribed Date and Time: 08/22/2018 7:31 Normal [facility] Glucose,Bedsideon 08-22-2018 Glucose mass conc 127 mg/dL High 70-100 [facility] Comment on above: Result Comment: Test performed by glucose meter. Results may be 10%-15% lower than serum/plasma values. (CLIA ID [id number]) Performed By: #### H EMDF, PT, BMP3M, PHOS3, MG3, CK3 #### [address] #### VD25H #### [facility] [address] [place] [address] Urinalysis,Macroon 9 Appearance Nom (U) clear Normal Clear [facility] Comment on above: Performed By: #### H EMDF, PT, BMP3M, PHOS3, MG3, CK3 #### [address] #### VD25H #### [facility] [address] [place] [address] Bilirubin,Ur Negative Normal Negative [facility] Comment on above: Performed By: #### H EMDF, PT, BMP3M, PHOS3, MG3, CK3 #### [address] #### VD25H #### [facility] [address] [place] [address] Color Nom (U) dk.yel Normal Lt. Yellow [facility] Comment on above: Performed By: #### H EMDF, PT, BMP3M, PHOS3, MG3, CK3 #### [address] #### VD25H #### [facility] [address] [place] [address] Glucose Ql (U) NORM Normal Negative [facility] Comment on above: Performed By: #### H EMDF, PT, BMP3M, PHOS3, MG3, CK3 #### [address] #### VD25H #### [facility] [address] [place] [address] Ketone,Urine Negative Normal Negative [facility] Comment on above: Performed By: #### H EMDF, PT, BMP3M, PHOS3, MG3, CK3 #### [place] [address] [address] [place], [place] #### VD25H #### [facility] [address] [place] [address] Nitrite Ql (U) Negative Normal Negative [facility] Comment on above: Performed By: #### H EMDF, PT, BMP3M, PHOS3, MG3, CK3 #### [place] [address] [address] [place], [place] #### VD25H #### [facility] [address] [place] [address] Occult Blood,Ur Negative Normal Negative [facility] Comment on above: Performed By: #### H EMDF, PT, BMP3M, PHOS3, MG3, CK3 #### [address] #### VD25H #### [place] [address] [place] [address] pH (U) 8.0 Normal 5.0-8.0 [facility] Comment on above: Performed By: #### H EMDF, PT, BMP3M, PHOS3, MG3, CK3 #### [address] #### VD25H #### [place] [address] [place] [address] Protein mass conc (U) Negative Normal Negative [facility] Comment on above: Performed By: #### H EMDF, PT, BMP3M, PHOS3, MG3, CK3 #### [address] #### VD25H #### [place] [address] [place] [address] Specific [place],Urine 1.015 Normal 1.005-1.030 [facility] Comment on above: Performed By: #### H EMDF, PT, BMP3M, PHOS3, MG3, CK3 #### [address] #### VD25H #### [facility] [address] [place] [address] Urobilinogen Qn (U) 1 mg/dL Normal 0-1 [facility] Comment on above: Performed By: #### H EMDF, PT, BMP3M, PHOS3, MG3, CK3 #### [place] [address] [address] [place] #### VD25H #### [facility] [address] [place] [address] WBC #/vol (Bld) Negative Normal Negative [facility] Comment on above: Performed By: #### H EMDF, PT, BMP3M, PHOS3, MG3, CK3 #### [place] [address] [address] [place], [place] #### VD25H #### [facility] [address] [place] [address] Basic Metabolic Panelon 04-2 Calcium mass conc 7.8 mg/dL Low 8.4-10.4 [facility] Comment on above: Performed By: #### H EMDF, PT, BMP3M, PHOS3, MG3, CK3 #### [place] [address] [address] [place], [place] #### VD25H #### [facility] [address] [place] [address] Glucose mass conc 102 mg/dL High 70-100 [facility] Comment on above: Performed By: #### H EMDF, PT, BMP3M, PHOS3, MG3, CK3 #### [place] [address] [place], [place] #### VD25H #### [facility] [address] [place] [address] Anion gap molar conc 0 Normal [facility] Comment on above: Performed By: #### H EMDF, PT, BMP3M, PHOS3, MG3, CK3 #### [place] [address] [place], [place] #### VD25H #### [facility] [address] [place] [address] CO2 molar conc 37 mmol/L High 22-30 [facility] Comment on above: Performed By: #### H EMDF, PT, BMP3M, PHOS3, MG3, CK3 #### [address] #### VD25H #### [facility] [address] [place] [address] Creatinine mass conc 0.46 mg/dL Low 0.52-1.25 [facility] Comment on above: Performed By: #### H EMDF, PT, BMP3M, PHOS3, MG3, CK3 #### [address] #### VD25H #### [place] [address] [place] [address] GFR/1.73 sq M predicted among blacks MDRD vol rate/area (S/P/Bld) mL/min/{1.73_m2} Normal >60 [facility] Comment on above: Performed By: #### H EMDF, PT, BMP3M, PHOS3, MG3, CK3 #### [address] #### VD25H #### [facility] [address] [place] [address] GFR/1.73 sq M predicted among non-blacks MDRD vol rate/area (S/P/Bld) mL/min/{1.73_m2} Normal >60 [facility] Comment on above: Result Comment: Sour ce- MDRD equation with creatinine calibration to IDMS(NKDEP) eGFR not recommended for drug dose adjustment Performed By: #### H EMDF, PT, BMP3M, PHOS3, MG3, CK3 #### [address] #### VD25H #### [place] [address] [place] [address] Urea nitrogen mass conc 7 mg/dL Normal 7-20 [facility] Comment on above: Performed By: #### H EMDF, PT, BMP3M, PHOS3, MG3, CK3 #### [facility] [address] [place], [place] #### VD25H #### [facility] [address] [place] [address] Potassium molar conc 3.7 mmol/L Normal 3.5-5.1 [facility] Comment on above: Performed By: #### H EMDF, PT, BMP3M, PHOS3, MG3, CK3 #### [facility] [address] [place], [place] #### VD25H #### [facility] [address] [place] [address] Chloride molar conc 101 mmol/L Normal 98-107 [facility] Comment on above: Performed By: #### H EMDF, PT, BMP3M, PHOS3, MG3, CK3 #### [facility] [address] [place], [place] #### VD25H #### [facility] [address] [place] [address] Sodium molar conc 138 mmol/L Normal 135-145 [facility] Comment on above: Performed By: #### H EMDF, PT, BMP3M, PHOS3, MG3, CK3 #### [place] [address] [address] [place], [place] #### VD25H #### [facility] [address] [place] [address] CR Chest Portableon 08-22-19 19 CR Chest Portable Patient Name: KATHYA HOOPER Diagnostic Radiology Exam Date/Time 08/21/2018 09:46:47 EDT Exam CR Chest Portable Ordering Physician MALLORY STAPLES Accession Number [id number] CPT4 Codes 49944 () Reason For Exam edema Report PORTABLE [...] Transcribed Date and Time: 08/21/2018 11:14 Normal [facility] CULTURE ANAEROBEon 9 CULTURE ANAEROBE CULTURE ANAEROBE --> Status: F No growth of anaerobes at 5 days. Normal [facility] Comment on above: Order Comment: or co llected Performed By: #### H EMDF, PT, BMP3M, PHOS3, MG3, CK3 #### [facility] [address] [place], [place] #### VD25H #### [facility] [address] [place] [address] Glucose,Bedsideon 08-21-2018 Glucose mass conc 124 mg/dL High 70-100 [facility] Comment on above: Result Comment: Test performed by glucose meter. Results may be 10%-15% lower than serum/plasma values. (CLIA ID [id number]) Performed By: #### H EMDF, PT, BMP3M, PHOS3, MG3, CK3 #### [facility] [address] [place] [address] #### VD25H #### [facility] [place] [address] [place] [address] Glucose mass conc 135 mg/dL High 70-100 [facility] Comment on above: Result Comment: Test performed by glucose meter. Results may be 10%-15% lower than serum/plasma values. (CLIA ID [id number]) Performed By: #### H EMDF, PT, BMP3M, PHOS3, MG3, CK3 #### [facility] [address] [place], [place] #### VD25H #### [facility] [address] [place] [address] Glucose mass conc 131 mg/dL High 70-100 [facility] Comment on above: Result Comment: Test performed by glucose meter. Results may be 10%-15% lower than serum/plasma values. (CLIA ID [id number]) Performed By: #### H EMDF, PT, BMP3M, PHOS3, MG3, CK3 #### [address] #### VD25H #### [facility] [address] [place] [address] Glucose mass conc 112 mg/dL High 70-100 [facility] Comment on above: Result Comment: Test performed by glucose meter. Results may be 10%-15% lower than serum/plasma values. (CLIA ID [id number]) Performed By: #### H EMDF, PT, BMP3M, PHOS3, MG3, CK3 #### [address] #### VD25H #### [facility] [address] [place] [address] Basic Metabolic Panelon 04-2 Anion gap molar conc 4 Normal [facility] Comment on above: Performed By: #### H EMDF, PT, BMP3M, PHOS3, MG3, CK3 #### [address] #### VD25H #### [facility] [address] [place] [address] Calcium mass conc 7.6 mg/dL Low 8.4-10.4 [facility] Comment on above: Performed By: #### H EMDF, PT, BMP3M, PHOS3, MG3, CK3 #### [place] [address] [address] [place] #### VD25H #### [facility] [address] [place] [address] CO2 molar conc 36 mmol/L High 22-30 [facility] Comment on above: Performed By: #### H EMDF, PT, BMP3M, PHOS3, MG3, CK3 #### [place] [address] [place], [place] #### VD25H #### [facility] [address] [place] [address] Glucose mass conc 121 mg/dL High 70-100 [facility] Comment on above: Performed By: #### H EMDF, PT, BMP3M, PHOS3, MG3, CK3 #### [address] #### VD25H #### [facility] [address] [place] [address] Urea nitrogen mass conc 9 mg/dL Normal 7-20 [facility] Comment on above: Performed By: #### H EMDF, PT, BMP3M, PHOS3, MG3, CK3 #### [address] #### VD25H #### [facility] [address] [place] [address] Creatinine mass conc 0.51 mg/dL Low 0.52-1.25 [facility] Comment on above: Performed By: #### H EMDF, PT, BMP3M, PHOS3, MG3, CK3 #### [address] #### VD25H #### [facility] [address] [place] [address] GFR/1.73 sq M predicted among blacks MDRD vol rate/area (S/P/Bld) mL/min/{1.73_m2} Normal >60 [facility] Comment on above: Performed By: #### H EMDF, PT, BMP3M, PHOS3, MG3, CK3 #### [facility] [address] [place], [place] #### VD25H #### [facility] [address] [place] [address] GFR/1.73 sq M predicted among non-blacks MDRD vol rate/area (S/P/Bld) mL/min/{1.73_m2} Normal >60 [facility] Comment on above: Result Comment: Sour ce- MDRD equation with creatinine calibration to IDMS(NKDEP) eGFR not recommended for drug dose adjustment Performed By: #### H EMDF, PT, BMP3M, PHOS3, MG3, CK3 #### [place] [address] [address] [place], [place] #### VD25H #### [facility] [address] [place] [address] Chloride molar conc 100 mmol/L Normal 98-107 [facility] Comment on above: Performed By: #### H EMDF, PT, BMP3M, PHOS3, MG3, CK3 #### [place] [address] [place], [place] #### VD25H #### [facility] [address] [place] [address] Potassium molar conc 3.3 mmol/L Low 3.5-5.1 [facility] Comment on above: Performed By: #### H EMDF, PT, BMP3M, PHOS3, MG3, CK3 #### [facility] [address] [place], [place] #### VD25H #### [facility] [address] [place] [address] Sodium molar conc 140 mmol/L Normal 135-145 [facility] Comment on above: Performed By: #### H EMDF, PT, BMP3M, PHOS3, MG3, CK3 #### [facility] [address] [place], [place] #### VD25H #### [facility] [address] [place] [address] Glucose,Bedsideon 08-20-2018 Glucose mass conc 121 mg/dL High 70-100 [facility] Comment on above: Result Comment: Test performed by glucose meter. Results may be 10%-15% lower than serum/plasma values. (CLIA ID [id number]) Performed By: #### H EMDF, PT, BMP3M, PHOS3, MG3, CK3 #### [facility] [address] [place], [place] #### VD25H #### [facility] [address] [place] [address] Glucose mass conc 127 mg/dL High 70-100 [facility] Comment on above: Result Comment: Test performed by glucose meter. Results may be 10%-15% lower than serum/plasma values. (CLIA ID [id number]) Performed By: #### H EMDF, PT, BMP3M, PHOS3, MG3, CK3 #### [place] [address] [place], [place] #### VD25H #### [facility] [address] [place] [address] Hep A Abs, Totalon 9 Hep A Abs, Total Negative Normal Negative [facility] Comment on above: Result Comment: Perf ormed by [email or web address], [address] [place] [id number] [email or web address], Moo Lay MD - Lab. Director Performed By: #### H EMDF, PT, BMP3M, PHOS3, MG3, CK3 #### [address] #### VD25H #### [facility] [address] [place] [address] Basic Metabolic Panelon - Anion gap molar conc 1 Normal [facility] Comment on above: Performed By: #### H EMDF, PT, BMP3M, PHOS3, MG3, CK3 #### [place] [address] [place], [place] #### VD25H #### [facility] [address] [place] [address] Calcium mass conc 7.6 mg/dL Low 8.4-10.4 [facility] Comment on above: Performed By: #### H EMDF, PT, BMP3M, PHOS3, MG3, CK3 #### [place] [address] [address] [place] #### VD25H #### [facility] [address] [place] [address] CO2 molar conc 33 mmol/L High 22-30 [facility] Comment on above: Performed By: #### H EMDF, PT, BMP3M, PHOS3, MG3, CK3 #### [address] [place], [place] #### VD25H #### [place] [address] [place] [address] Glucose mass conc 139 mg/dL High 70-100 [facility] Comment on above: Performed By: #### H EMDF, PT, BMP3M, PHOS3, MG3, CK3 #### [place] [address] [address] [facility], [place] #### VD25H #### [facility] [address] [place] [address] Urea nitrogen mass conc 10 mg/dL Normal 7-20 [facility] Comment on above: Performed By: #### H EMDF, PT, BMP3M, PHOS3, MG3, CK3 #### [place] [address] [address] [facility], [place] #### VD25H #### [facility] [address] [place] [address] Creatinine mass conc 0.57 mg/dL Normal 0.52-1.25 [facility] Comment on above: Performed By: #### H EMDF, PT, BMP3M, PHOS3, MG3, CK3 #### [place] [address] [address] [place] #### VD25H #### [place] [address] [place] [address] GFR/1.73 sq M predicted among blacks MDRD vol rate/area (S/P/Bld) mL/min/{1.73_m2} Normal >60 [facility] Comment on above: Performed By: #### H EMDF, PT, BMP3M, PHOS3, MG3, CK3 #### [address] #### VD25H #### [facility] [address] [place] [address] GFR/1.73 sq M predicted among non-blacks MDRD vol rate/area (S/P/Bld) mL/min/{1.73_m2} Normal >60 [facility] Comment on above: Result Comment: Sour ce- MDRD equation with creatinine calibration to IDMS(NKDEP) eGFR not recommended for drug dose adjustment Performed By: #### H EMDF, PT, BMP3M, PHOS3, MG3, CK3 #### [address] #### VD25H #### [facility] [address] [place] [address] Potassium molar conc 3.4 mmol/L Low 3.5-5.1 [facility] Comment on above: Performed By: #### H EMDF, PT, BMP3M, PHOS3, MG3, CK3 #### [address] #### VD25H #### [facility] [address] [place] [address] Chloride molar conc 104 mmol/L Normal 98-107 [facility] Comment on above: Performed By: #### H EMDF, PT, BMP3M, PHOS3, MG3, CK3 #### [address] #### VD25H #### [facility] [address] [place] [address] Sodium molar conc 138 mmol/L Normal 135-145 [facility] Comment on above: Performed By: #### H EMDF, PT, BMP3M, PHOS3, MG3, CK3 #### [facility] [address] [place] [address] #### VD25H #### [facility] [address] [place] [address] CULT./ST. BACTERIAon 019 CULT./ST. BACTERIA STAIN GRAM [...] Ampicillin/Sulbactam( CHRISTI) R Aztreonam(CHRISTI) R Cefazolin(CHRISTI) R Cefepime(CHRITSI) R Ceftriaxone(CHRISTI) R Ciprofloxacin(CHRISTI) <= 0.25 S [...] 0.12 S Vancomycin(CHRISTI) = 1 S Normal [facility] Comment on above: Order Comment: or co llected Performed By: #### H EMDF, PT, BMP3M, PHOS3, MG3, CK3 #### [place] [address] [place], [place] #### VD25H #### [facility] [address] [place] [address] Basic Metabolic Panelon 04-2 Calcium mass conc 7.8 mg/dL Low 8.4-10.4 [facility] Comment on above: Performed By: #### H EMDF, PT, BMP3M, PHOS3, MG3, CK3 #### [address] #### VD25H #### [facility] [address] [place] [address] Glucose mass conc 104 mg/dL High 70-100 [facility] Comment on above: Performed By: #### H EMDF, PT, BMP3M, PHOS3, MG3, CK3 #### [address] #### VD25H #### [facility] [address] [place] [address] Urea nitrogen mass conc 12 mg/dL Normal 7-20 [facility] Comment on above: Performed By: #### H EMDF, PT, BMP3M, PHOS3, MG3, CK3 #### [address] #### VD25H #### [facility] [address] [place] [address] Anion gap molar conc 5 Normal [facility] Comment on above: Performed By: #### H EMDF, PT, BMP3M, PHOS3, MG3, CK3 #### [place] [address] [place], [place] #### VD25H #### [facility] [address] [place] [address] CO2 molar conc 26 mmol/L Normal 22-30 [facility] Comment on above: Performed By: #### H EMDF, PT, BMP3M, PHOS3, MG3, CK3 #### [place] [address] [place] #### VD25H #### [facility] [address] [place] [address] Creatinine mass conc 0.61 mg/dL Normal 0.52-1.25 [facility] Comment on above: Performed By: #### H EMDF, PT, BMP3M, PHOS3, MG3, CK3 #### [address] #### VD25H #### [place] [address] [place] [address] GFR/1.73 sq M predicted among blacks MDRD vol rate/area (S/P/Bld) mL/min/{1.73_m2} Normal >60 [facility] Comment on above: Performed By: #### H EMDF, PT, BMP3M, PHOS3, MG3, CK3 #### [address] #### VD25H #### [facility] [address] [place] [address] GFR/1.73 sq M predicted among non-blacks MDRD vol rate/area (S/P/Bld) mL/min/{1.73_m2} Normal >60 [facility] Comment on above: Result Comment: Sour ce- MDRD equation with creatinine calibration to IDMS(NKDEP) eGFR not recommended for drug dose adjustment Performed By: #### H EMDF, PT, BMP3M, PHOS3, MG3, CK3 #### [place] [address] [place], [place] #### VD25H #### [place] [address] [place] [address] Chloride molar conc 107 mmol/L Normal 98-107 [facility] Comment on above: Performed By: #### H EMDF, PT, BMP3M, PHOS3, MG3, CK3 #### [facility] [address] [place], [place] #### VD25H #### [facility] [address] [place] [address] Potassium molar conc 3.4 mmol/L Low 3.5-5.1 [facility] Comment on above: Performed By: #### H EMDF, PT, BMP3M, PHOS3, MG3, CK3 #### [address] #### VD25H #### [facility] [address] [place] [address] Sodium molar conc 138 mmol/L Normal 135-145 [facility] Comment on above: Performed By: #### H EMDF, PT, BMP3M, PHOS3, MG3, CK3 #### [address] #### VD25H #### [facility] [address] [place] [address] Glucose,Bedsideon 08-18-2018 Glucose mass conc 113 mg/dL High 70-100 [facility] Comment on above: Result Comment: Test performed by glucose meter. Results may be 10%-15% lower than serum/plasma values. (CLIA ID [id number]) Performed By: #### H EMDF, PT, BMP3M, PHOS3, MG3, CK3 #### [address] #### VD25H #### [facility] [address] [place] [address] Hemogram w/ Autodiffon 08-18 Erythrocyte distribution width Ratio (RBC) 14.4 % Normal 11.5-14.5 [facility] Comment on above: Performed By: #### H EMDF, PT, BMP3M, PHOS3, MG3, CK3 #### [address] [place], [place] #### VD25H #### [facility] [address] [place] [address] Hematocrit Volume Fraction (Bld) 29.3 % Low 40.0-52.0 [facility] Comment on above: Performed By: #### H EMDF, PT, BMP3M, PHOS3, MG3, CK3 #### [place] [address] [place] #### VD25H #### [facility] [address] [place] [address] Hemoglobin mass conc (Bld) 9.8 g/dL Low 13.0-18.0 [facility] Comment on above: Performed By: #### H EMDF, PT, BMP3M, PHOS3, MG3, CK3 #### [address] #### VD25H #### [facility] [address] [place] [address] MCH Entitic mass (RBC) 28.0 pg Normal 26.0-34.0 [facility] Comment on above: Performed By: #### H EMDF, PT, BMP3M, PHOS3, MG3, CK3 #### [address] #### VD25H #### [facility] [address] [place] [address] MCHC mass conc (RBC) 33.4 % Normal 32.0-36.0 [facility] Comment on above: Performed By: #### H EMDF, PT, BMP3M, PHOS3, MG3, CK3 #### [address] #### VD25H #### [facility] [address] [place] [address] MCV Entitic volume (RBC) 84.1 fL Normal 80.0-98.0 [facility] Comment on above: Performed By: #### H EMDF, PT, BMP3M, PHOS3, MG3, CK3 #### [place] [address] [place], [place] #### VD25H #### [facility] [address] [place] [address] Platelet mean volume Entitic volume (Bld) 7.9 fL Normal 7.4-10.4 [facility] Comment on above: Performed By: #### H EMDF, PT, BMP3M, PHOS3, MG3, CK3 #### [address] [place], [place] #### VD25H #### [facility] [address] [place] [address] Platelets #/vol (Bld) 301 10*3/uL Normal 140-440 [facility] Comment on above: Performed By: #### H EMDF, PT, BMP3M, PHOS3, MG3, CK3 #### [place] [address] [place], [place] #### VD25H #### [place] [address] [place] [address] RBC #/vol (Bld) 3.49 10*6/uL Low 4.40-5.90 [facility] Comment on above: Performed By: #### H EMDF, PT, BMP3M, PHOS3, MG3, CK3 #### [address] #### VD25H #### [facility] [address] [place] [address] WBC #/vol (Bld) 8.3 10*3/uL Normal 3.6-10.7 [facility] Comment on above: Performed By: #### H EMDF, PT, BMP3M, PHOS3, MG3, CK3 #### [address] #### VD25H #### [place] [address] [place] [address] Magnesiumon 08-18-2018 Magnesium mass conc 2.0 mg/dL Normal 1.6-2.3 [facility] Comment on above: Performed By: #### H EMDF, PT, BMP3M, PHOS3, MG3, CK3 #### [facility] [address] [place], [place] #### VD25H #### [facility] [address] [place] [address] Manual Diffon 08-18-2018 Abs Neutrophile Cnt 5.1 10*3/uL Normal 2.2-8.2 [facility] Comment on above: Performed By: #### H EMDF, PT, BMP3M, PHOS3, MG3, CK3 #### [address] #### VD25H #### [facility] [address] [place] [address] Bands 3 % Normal 0-3 [facility] Comment on above: Performed By: #### H EMDF, PT, BMP3M, PHOS3, MG3, CK3 #### [address] #### VD25H #### [facility] [address] [place] [address] Eosinophils #/vol (Bld) 0.2 10*3/uL Normal 0.0-0.5 [facility] Comment on above: Performed By: #### H EMDF, PT, BMP3M, PHOS3, MG3, CK3 #### [address] #### VD25H #### [facility] [address] [place] [address] Eosinophils/100 WBC (Bld) 2 % Normal 1-6 [facility] Comment on above: Performed By: #### H EMDF, PT, BMP3M, PHOS3, MG3, CK3 #### [address] #### VD25H #### [facility] [address] [place] [address] Lymphocytes #/vol (Bld) 2.1 10*3/uL Normal 1.1-4.5 [facility] Comment on above: Performed By: #### H EMDF, PT, BMP3M, PHOS3, MG3, CK3 #### [facility] [address] [place], [place] #### VD25H #### [facility] [address] [place] [address] Lymphocytes/100 WBC (Bld) 25 % Normal 20-40 [facility] Comment on above: Performed By: #### H EMDF, PT, BMP3M, PHOS3, MG3, CK3 #### [address] #### VD25H #### [facility] [address] [place] [address] Metamyelocytes 1 % Abnormal <1 [facility] Comment on above: Performed By: #### H EMDF, PT, BMP3M, PHOS3, MG3, CK3 #### [place] [address] [place], [place] #### VD25H #### [facility] [address] [place] [address] Monocytes #/vol (Bld) 0.6 10*3/uL Normal 0.2-1.1 [facility] Comment on above: Performed By: #### H EMDF, PT, BMP3M, PHOS3, MG3, CK3 #### [place] [address] [place] #### VD25H #### [facility] [address] [place] [address] Monocytes/100 WBC (Bld) 7 % Normal 2-10 [facility] Comment on above: Performed By: #### H EMDF, PT, BMP3M, PHOS3, MG3, CK3 #### [address] #### VD25H #### [facility] [address] [place] [address] Myelocytes 1 % Abnormal <1 [facility] Comment on above: Performed By: #### H EMDF, PT, BMP3M, PHOS3, MG3, CK3 #### [address] #### VD25H #### [facility] [address] [place] [address] Protein mass conc 2 % Abnormal <1 [facility] Comment on above: Performed By: #### H EMDF, PT, BMP3M, PHOS3, MG3, CK3 #### [address] #### VD25H #### [facility] [address] [place] [address] RBC morphology finding Nom (Bld) See Prev Normal [facility] Comment on above: Performed By: #### H EMDF, PT, BMP3M, PHOS3, MG3, CK3 #### [address] #### VD25H #### [facility] [address] [place] [address] Seg Neutrophils 59 % Normal 40-80 [facility] Comment on above: Performed By: #### H EMDF, PT, BMP3M, PHOS3, MG3, CK3 #### [address] #### VD25H #### [facility] [address] [place] [address] Abs Baso Cnt 0.0 10*3/uL Normal 0.0-0.2 [facility] Comment on above: Performed By: #### H EMDF, PT, BMP3M, PHOS3, MG3, CK3 #### [address] #### VD25H #### [facility] [address] [place] [address] Basophils/100 WBC (Bld) 0 % Normal 0-2 [facility] Comment on above: Performed By: #### H EMDF, PT, BMP3M, PHOS3, MG3, CK3 #### [place] [address] [place] #### VD25H #### [facility] [address] [place] [address] Cells counted 100 Normal [facility] Comment on above: Performed By: #### H EMDF, PT, BMP3M, PHOS3, MG3, CK3 #### [place] [address] [place] #### VD25H #### [facility] [address] [place] [address] Phosphoruson 08-18-2018 Phosphate mass conc 4.6 mg/dL High 2.5-4.5 [facility] Comment on above: Performed By: #### H EMDF, PT, BMP3M, PHOS3, MG3, CK3 #### [address] #### VD25H #### [place] [address] [place] [address] Basic Metabolic Panelon 07-30 Calcium mass conc 7.7 mg/dL Low 8.4-10.4 [facility] Comment on above: Performed By: #### H EMDF, PT, BMP3M, PHOS3, MG3, CK3 #### [address] #### VD25H #### [facility] [address] [place] [address] Anion gap molar conc 7 Normal [facility] Comment on above: Performed By: #### H EMDF, PT, BMP3M, PHOS3, MG3, CK3 #### [place] [address] [place] #### VD25H #### [facility] [address] [place] [address] CO2 molar conc 25 mmol/L Normal 22-30 [facility] Comment on above: Performed By: #### H EMDF, PT, BMP3M, PHOS3, MG3, CK3 #### [address] #### VD25H #### [facility] [address] [place] [address] Creatinine mass conc 0.59 mg/dL Normal 0.52-1.25 [facility] Comment on above: Performed By: #### H EMDF, PT, BMP3M, PHOS3, MG3, CK3 #### [address] #### VD25H #### [facility] [address] [place] [address] GFR/1.73 sq M predicted among blacks MDRD vol rate/area (S/P/Bld) mL/min/{1.73_m2} Normal >60 [facility] Comment on above: Performed By: #### H EMDF, PT, BMP3M, PHOS3, MG3, CK3 #### [address] #### VD25H #### [place] [address] [place] [address] GFR/1.73 sq M predicted among non-blacks MDRD vol rate/area (S/P/Bld) mL/min/{1.73_m2} Normal >60 [facility] Comment on above: Result Comment: Sour ce- MDRD equation with creatinine calibration to IDMS(NKDEP) eGFR not recommended for drug dose adjustment Performed By: #### H EMDF, PT, BMP3M, PHOS3, MG3, CK3 #### [address] #### VD25H #### [facility] [address] [place] [address] Glucose mass conc 116 mg/dL High 70-100 [facility] Comment on above: Performed By: #### H EMDF, PT, BMP3M, PHOS3, MG3, CK3 #### [address] #### VD25H #### [facility] [address] [place] [address] Urea nitrogen mass conc 12 mg/dL Normal 7-20 [facility] Comment on above: Performed By: #### H EMDF, PT, BMP3M, PHOS3, MG3, CK3 #### [facility] [address] [place] [address] #### VD25H #### [facility] [address] [place] [address] Potassium molar conc 3.2 mmol/L Low 3.5-5.1 [facility] Comment on above: Performed By: #### H EMDF, PT, BMP3M, PHOS3, MG3, CK3 #### [place] [address] [place] #### VD25H #### [facility] [address] [place] [address] Sodium molar conc 138 mmol/L Normal 135-145 [facility] Comment on above: Performed By: #### H EMDF, PT, BMP3M, PHOS3, MG3, CK3 #### [place] [address] [place] [address] #### VD25H #### [facility] [address] [place] [address] Chloride molar conc 106 mmol/L Normal 98-107 [facility] Comment on above: Performed By: #### H EMDF, PT, BMP3M, PHOS3, MG3, CK3 #### [place] [address] [address] [place] #### VD25H #### [facility] [address] [place] [address] CR Chest Portableon 08-18-19 19 CR Chest Portable Patient Name: KATHYA HOOPER Diagnostic Radiology Exam Date/Time 08/17/2018 17:54:46 EDT Exam CR Chest Portable Ordering Physician SALO DAVIS Accession Number [id number] CPT4 Codes 18591 () Reason For Exam line placement Report [...] LAURA Transcribed Date and Time: 08/17/2018 6:05 [facility] CR Chest Portable Patient Name: KATHYA HOOPER Diagnostic Radiology Exam Date/Time 08/17/2018 06:11:03 EDT Exam CR Chest Portable Ordering Physician ETIENNE VELÁSQUEZ TIMOTHY P Accession Number [id number] CPT4 Codes 86931 () Reason For Exam follow left pleural [...] RISA Transcribed Date and Time: 08/17/2018 7:16 [facility] Ferritinon 08-17-2018 Ferritin mass conc 1100 ng/mL High 18-464 [facility] Comment on above: Performed By: #### H EMDF, PT, BMP3M, PHOS3, MG3, CK3 #### [facility] [address] [place], [place] #### VD25H #### [facility] [address] [place] [address] Folateon 08-17-2018 Folate 15.1 ng/mL Normal 2.8-20.0 [facility] Comment on above: Performed By: #### H EMDF, PT, BMP3M, PHOS3, MG3, CK3 #### [facility] [address] [place], [place] #### VD25H #### [facility] [address] [place] [address] Glucose,Bedsideon 08-17-2018 Glucose mass conc 133 mg/dL High 70-100 [facility] Comment on above: Result Comment: Test performed by glucose meter. Results may be 10%-15% lower than serum/plasma values. (CLIA ID [id number]) Performed By: #### H EMDF, PT, BMP3M, PHOS3, MG3, CK3 #### [facility] [address] [place], [place] #### VD25H #### [facility] [address] [place] [address] Hemoglobin A1Con 08-17-2018 Hemoglobin A1c/Hemoglobin.total mass fraction (Bld) 117 mg/dL Normal [facility] Comment on above: Performed By: #### H EMDF, PT, BMP3M, PHOS3, MG3, CK3 #### [facility] [address] [place], [place] #### VD25H #### [facility] [address] [place] [address] Hemoglobin A1c/Hemoglobin.total mass fraction (Bld) 5.7 % Normal 4.0-5.7 [facility] Comment on above: Result Comment: --Hg bA1C levels may not be accurate in patients who have renal disease, received recent blood transfusions, are anemic, or who have dyshemoglobinemia. Performed By: #### H EMDF, PT, BMP3M, PHOS3, MG3, CK3 #### [place] [address] [place], [place] #### VD25H #### [facility] [address] [place] [address] Hemogram w/ Autodiffon 08-17 Erythrocyte distribution width Ratio (RBC) 14.3 % Normal 11.5-14.5 [facility] Comment on above: Performed By: #### H EMDF, PT, BMP3M, PHOS3, MG3, CK3 #### [address] #### VD25H #### [address] [place] [address] Hematocrit Volume Fraction (Bld) 29.1 % Low 40.0-52.0 [facility] Comment on above: Performed By: #### H EMDF, PT, BMP3M, PHOS3, MG3, CK3 #### [address] #### VD25H #### [facility] [address] [place] [address] Hemoglobin mass conc (Bld) 9.8 g/dL Low 13.0-18.0 [facility] Comment on above: Performed By: #### H EMDF, PT, BMP3M, PHOS3, MG3, CK3 #### [address] #### VD25H #### [facility] [address] [place] [address] MCH Entitic mass (RBC) 28.4 pg Normal 26.0-34.0 [facility] Comment on above: Performed By: #### H EMDF, PT, BMP3M, PHOS3, MG3, CK3 #### [address] #### VD25H #### [facility] [address] [place] [address] MCHC mass conc (RBC) 33.5 % Normal 32.0-36.0 [facility] Comment on above: Performed By: #### H EMDF, PT, BMP3M, PHOS3, MG3, CK3 #### [address] #### VD25H #### [facility] [address] [place] [address] MCV Entitic volume (RBC) 84.7 fL Normal 80.0-98.0 [facility] Comment on above: Performed By: #### H EMDF, PT, BMP3M, PHOS3, MG3, CK3 #### [address] #### VD25H #### [place] [address] [place] [address] Platelet mean volume Entitic volume (Bld) 8.1 fL Normal 7.4-10.4 [facility] Comment on above: Performed By: #### H EMDF, PT, BMP3M, PHOS3, MG3, CK3 #### [address] #### VD25H #### [facility] [address] [place] [address] Platelets #/vol (Bld) 281 10*3/uL Normal 140-440 [facility] Comment on above: Performed By: #### H EMDF, PT, BMP3M, PHOS3, MG3, CK3 #### [address] #### VD25H #### [facility] [address] [place] [address] RBC #/vol (Bld) 3.44 10*6/uL Low 4.40-5.90 [facility] Comment on above: Performed By: #### H EMDF, PT, BMP3M, PHOS3, MG3, CK3 #### [address] #### VD25H #### [facility] [address] [place] [address] WBC #/vol (Bld) 8.3 10*3/uL Normal 3.6-10.7 [facility] Comment on above: Performed By: #### H EMDF, PT, BMP3M, PHOS3, MG3, CK3 #### [facility] [address] [place], [place] #### VD25H #### [facility] [address] [place] [address] Hep B Surface Abon 9 Hep B Surface Ab < 8.0 Normal [facility] Comment on above: Result Comment: Inte rpretation: <8.0 Non-Reactive 8.0-11.9 Equivocal >= 12.0 Ab Detected Performed By: #### H EMDF, PT, BMP3M, PHOS3, MG3, CK3 #### [address] #### VD25H #### [facility] [address] [place] [address] Hep B Surface Agon 9 Hep B Surface Ag NOT DETECTED Normal Not-Detected [facility] Comment on above: Performed By: #### H EMDF, PT, BMP3M, PHOS3, MG3, CK3 #### [address] #### VD25H #### [facility] [address] [place] [address] Hep C Antibodyon 08-17-2018 Hep C Antibody NOT DETECTED Normal Not-Detected [facility] Comment on above: Result Comment: Bharti ents with DETECTED Hepatitis C Ab results should have a new specimen submitted for supplemental testing with a Hepatitis C Quantitative RNA assay (viral load), if clinically indicated. Performed By: #### H EMDF, PT, BMP3M, PHOS3, MG3, CK3 #### [address] #### VD25H #### [facility] [address] [place] [address] Hepatic Functionon 9 ALP enzyme act/vol 116 U/L Normal 38-126 [facility] Comment on above: Performed By: #### H EMDF, PT, BMP3M, PHOS3, MG3, CK3 #### [facility] [address] [facility] [place] #### VD25H #### [facility] [address] [place] [address] ALT enzyme act/vol 370 U/L High 13-69 [facility] Comment on above: Performed By: #### H EMDF, PT, BMP3M, PHOS3, MG3, CK3 #### [place] [address] [address] [facility], [place] #### VD25H #### [facility] [address] [place] [address] AST enzyme act/vol 150 U/L High 15-46 [facility] Comment on above: Performed By: #### H EMDF, PT, BMP3M, PHOS3, MG3, CK3 #### [place] [address] [address] [facility] [place] #### VD25H #### [facility] [address] [place] [address] Bilirubin mass conc 0.7 mg/dL Normal 0.2-1.3 [facility] Comment on above: Performed By: #### H EMDF, PT, BMP3M, PHOS3, MG3, CK3 #### [facility] [address] [facility] #### VD25H #### [facility] [address] [place] [address] Bilirubin.direct mass conc 0.0 mg/dL Normal 0.0-0.3 [facility] Comment on above: Performed By: #### H EMDF, PT, BMP3M, PHOS3, MG3, CK3 #### [place] [address] [address] [facility] [place] #### VD25H #### [facility] [address] [place] [address] Protein mass conc 5.4 g/dL Low 6.3-8.2 [facility] Comment on above: Performed By: #### H EMDF, PT, BMP3M, PHOS3, MG3, CK3 #### [facility] [address] [place], [place] #### VD25H #### [facility] [address] [place] [address] Albumin mass conc 2.5 g/dL Low 3.5-5.0 [facility] Comment on above: Performed By: #### H EMDF, PT, BMP3M, PHOS3, MG3, CK3 #### [place] [address] [place], [place] #### VD25H #### [facility] [address] [place] [address] Iron AND TIBCon 08-17-2018 Saturation 14 % Low 15-50 [facility] Comment on above: Performed By: #### H EMDF, PT, BMP3M, PHOS3, MG3, CK3 #### [facility] [address] [place] #### VD25H #### [facility] [address] [place] [address] Total Iron Binding Cap. 166 ug/dL Low 261-497 [facility] Comment on above: Performed By: #### H EMDF, PT, BMP3M, PHOS3, MG3, CK3 #### [facility] [address] [place], [place] #### VD25H #### [facility] [address] [place] [address] Iron, Total 23 ug/dL Low 49-181 [facility] Comment on above: Performed By: #### H EMDF, PT, BMP3M, PHOS3, MG3, CK3 #### [address] #### VD25H #### [facility] [address] [place] [address] Magnesiumon 08-17-2018 Magnesium mass conc 2.0 mg/dL Normal 1.6-2.3 [facility] Comment on above: Performed By: #### H EMDF, PT, BMP3M, PHOS3, MG3, CK3 #### [facility] [address] [place], [place] #### VD25H #### [facility] [address] [place] [address] Manual Diffon 08-17-2018 Abs Baso Cnt 0.1 10*3/uL Normal 0.0-0.2 [facility] Comment on above: Performed By: #### H EMDF, PT, BMP3M, PHOS3, MG3, CK3 #### [address] #### VD25H #### [facility] [address] [place] [address] Abs Neutrophile Cnt 5.6 10*3/uL Normal 2.2-8.2 [facility] Comment on above: Performed By: #### H EMDF, PT, BMP3M, PHOS3, MG3, CK3 #### [address] #### VD25H #### [facility] [address] [place] [address] Anisocytosis Ql (Bld) Slight Normal [facility] Comment on above: Performed By: #### H EMDF, PT, BMP3M, PHOS3, MG3, CK3 #### [place] [address] [place], [place] #### VD25H #### [facility] [address] [place] [address] Bands 9 % High 0-3 [facility] Comment on above: Performed By: #### H EMDF, PT, BMP3M, PHOS3, MG3, CK3 #### [address] #### VD25H #### [facility] [address] [place] [address] Basophils/100 WBC (Bld) 1 % Normal 0-2 [facility] Comment on above: Performed By: #### H EMDF, PT, BMP3M, PHOS3, MG3, CK3 #### [facility] [address] [place], [place] #### VD25H #### [facility] [address] [place] [address] Eosinophils #/vol (Bld) 0.2 10*3/uL Normal 0.0-0.5 [facility] Comment on above: Performed By: #### H EMDF, PT, BMP3M, PHOS3, MG3, CK3 #### [place] [address] [place] #### VD25H #### [facility] [address] [place] [address] Eosinophils/100 WBC (Bld) 3 % Normal 1-6 [facility] Comment on above: Performed By: #### H EMDF, PT, BMP3M, PHOS3, MG3, CK3 #### [place] [address] [place] #### VD25H #### [facility] [address] [place] [address] Lymphocytes #/vol (Bld) 1.5 10*3/uL Normal 1.1-4.5 [facility] Comment on above: Performed By: #### H EMDF, PT, BMP3M, PHOS3, MG3, CK3 #### [facility] [address] [place], [place] #### VD25H #### [facility] [address] [place] [address] Lymphocytes/100 WBC (Bld) 18 % Low 20-40 [facility] Comment on above: Performed By: #### H EMDF, PT, BMP3M, PHOS3, MG3, CK3 #### [facility] [address] [place], [place] #### VD25H #### [facility] [address] [place] [address] Monocytes #/vol (Bld) 0.4 10*3/uL Normal 0.2-1.1 [facility] Comment on above: Performed By: #### H EMDF, PT, BMP3M, PHOS3, MG3, CK3 #### [facility] [address] [place], [place] #### VD25H #### [facility] [address] [place] [address] Monocytes/100 WBC (Bld) 5 % Normal 2-10 [facility] Comment on above: Performed By: #### H EMDF, PT, BMP3M, PHOS3, MG3, CK3 #### [address] #### VD25H #### [facility] [address] [place] [address] Myelocytes 5 % Abnormal <1 [facility] Comment on above: Performed By: #### H EMDF, PT, BMP3M, PHOS3, MG3, CK3 #### [address] #### VD25H #### [facility] [address] [place] [address] Polychromasia Slight Normal [facility] Comment on above: Performed By: #### H EMDF, PT, BMP3M, PHOS3, MG3, CK3 #### [address] #### VD25H #### [facility] [address] [place] [address] RBC morphology finding Nom (Bld) ABNORMAL Normal [facility] Comment on above: Performed By: #### H EMDF, PT, BMP3M, PHOS3, MG3, CK3 #### [address] #### VD25H #### [facility] [address] [place] [place] [address] Seg Neutrophils 59 % Normal 40-80 [facility] Comment on above: Performed By: #### H EMDF, PT, BMP3M, PHOS3, MG3, CK3 #### [facility] [address] [place], [place] #### VD25H #### [facility] [address] [place] [address] Toxic Granulation Slight Normal [facility] Comment on above: Performed By: #### H EMDF, PT, BMP3M, PHOS3, MG3, CK3 #### [facility] [address] [place] #### VD25H #### [facility] [address] [place] [address] Cells counted 100 Normal [facility] Comment on above: Performed By: #### H EMDF, PT, BMP3M, PHOS3, MG3, CK3 #### [place] [address] [place], [place] #### VD25H #### [facility] [address] [place] [address] Phosphoruson 08-17-2018 Phosphate mass conc 3.9 mg/dL Normal 2.5-4.5 [facility] Comment on above: Performed By: #### H EMDF, PT, BMP3M, PHOS3, MG3, CK3 #### [facility] [address] [facility] [place] #### VD25H #### [facility] [address] [place] [address] Triglycerideon 08-17-2018 Triglyceride mass conc 104 mg/dL Normal <150 [facility] Comment on above: Performed By: #### H EMDF, PT, BMP3M, PHOS3, MG3, CK3 #### [place] [address] [place] #### VD25H #### [facility] [address] [place] [address] Vitamin B12on 08-17-2018 Cobalamin (Vitamin B12) mass conc 615 pg/mL Normal 239-931 [facility] Comment on above: Performed By: #### H EMDF, PT, BMP3M, PHOS3, MG3, CK3 #### [facility] [address] [place] [address] #### VD25H #### [facility] [address] [place] [address] Albumin, Serumon 08-16-2018 Albumin mass conc 2.6 g/dL Low 3.5-5.0 [facility] Comment on above: Performed By: #### H EMDF, PT, BMP3M, PHOS3, MG3, CK3 #### [facility] [address] [facility] [place] [address] #### VD25H #### [facility] [address] [place] [address] CR Abdomen APon 08-16-2018 CR Abdomen AP Patient Name: KATHYA HOOPER Diagnostic Radiology Exam Date/Time 08/16/2018 10:17:24 EDT Exam CR Abdomen AP Ordering Physician [id number] ESPINOSA Accession Number [id number] CPT4 Codes 63030 () Reason For Exam dobhoff placement Report [...] Transcribed Date and Time: 08/16/2018 12:33 Normal [facility] CR Chest Portableon 08-17-19 19 CR Chest Portable Patient Name: KATHYA HOOPER Diagnostic Radiology Exam Date/Time 08/16/2018 10:17:24 EDT Exam CR Chest Portable Ordering Physician [id number] ANNA Accession Number [id number] CPT4 Codes 81834 () Reason For Exam dyspnea Report PORTABLE [...] Transcribed Date and Time: 08/16/2018 12:31 Normal [facility] Comp Panel with Mg Reflexon 08-16-2018 Calcium mass conc 7.8 mg/dL Low 8.4-10.4 [facility] [employer] Comment on above: Performed By: #### H EMDF, PT, BMP3M, PHOS3, MG3, CK3 #### [facility] [address] [place] [address] #### VD25H #### [facility] [employer] [address] [place] [address] Glucose mass conc 114 mg/dL High 70-100 [facility] Comment on above: Performed By: #### H EMDF, PT, BMP3M, PHOS3, MG3, CK3 #### [facility] [employer] [address] [place] [address] #### VD25H #### [facility] [address] [place] [address] ALP enzyme act/vol 114 U/L Normal 38-126 [facility] Comment on above: Performed By: #### H EMDF, PT, BMP3M, PHOS3, MG3, CK3 #### [facility] [address] [place] [address] #### VD25H #### [facility] [address] [place] [address] ALT enzyme act/vol 539 U/L High 13-69 [facility] Comment on above: Performed By: #### H EMDF, PT, BMP3M, PHOS3, MG3, CK3 #### [facility] [address] [place] #### VD25H #### [facility] [address] [place] [address] Anion gap molar conc 4 Normal [facility] Comment on above: Performed By: #### H EMDF, PT, BMP3M, PHOS3, MG3, CK3 #### [facility] [address] [place], [place] #### VD25H #### [facility] [address] [place] [address] AST enzyme act/vol 460 U/L High 15-46 [facility] Comment on above: Performed By: #### H EMDF, PT, BMP3M, PHOS3, MG3, CK3 #### [facility] [address] [place], [place] #### VD25H #### [facility] [address] [place] [address] Bilirubin mass conc 0.7 mg/dL Normal 0.2-1.3 [facility] Comment on above: Performed By: #### H EMDF, PT, BMP3M, PHOS3, MG3, CK3 #### [facility] [address] [facility] [place] #### VD25H #### [facility] [address] [place] [address] CO2 molar conc 25 mmol/L Normal 22-30 [facility] Comment on above: Performed By: #### H EMDF, PT, BMP3M, PHOS3, MG3, CK3 #### [address] #### VD25H #### [facility] [address] [place] [address] Creatinine mass conc 0.71 mg/dL Normal 0.52-1.25 [facility] Comment on above: Performed By: #### H EMDF, PT, BMP3M, PHOS3, MG3, CK3 #### [place] [address] [address] [place], [place] #### VD25H #### [facility] [address] [place] [address] GFR/1.73 sq M predicted among blacks MDRD vol rate/area (S/P/Bld) mL/min/{1.73_m2} Normal >60 [facility] Comment on above: Performed By: #### H EMDF, PT, BMP3M, PHOS3, MG3, CK3 #### [address] #### VD25H #### [facility] [address] [place] [address] GFR/1.73 sq M predicted among non-blacks MDRD vol rate/area (S/P/Bld) mL/min/{1.73_m2} Normal >60 [facility] Comment on above: Result Comment: Sour ce- MDRD equation with creatinine calibration to IDMS(NKDEP) eGFR not recommended for drug dose adjustment Performed By: #### H EMDF, PT, BMP3M, PHOS3, MG3, CK3 #### [address] #### VD25H #### [facility] [address] [place] [address] Protein mass conc 5.1 g/dL Low 6.3-8.2 [facility] Comment on above: Performed By: #### H EMDF, PT, BMP3M, PHOS3, MG3, CK3 #### [address] #### VD25H #### [facility] [address] [place] [address] Urea nitrogen mass conc 22 mg/dL High 7-20 [facility] Comment on above: Performed By: #### H EMDF, PT, BMP3M, PHOS3, MG3, CK3 #### [place] [address] [place] #### VD25H #### [facility] [address] [place] [address] Chloride molar conc 102 mmol/L Normal 98-107 [facility] Comment on above: Performed By: #### H EMDF, PT, BMP3M, PHOS3, MG3, CK3 #### [place] [address] [place] #### VD25H #### [facility] [address] [place] [address] Potassium molar conc 3.1 mmol/L Low 3.5-5.1 [facility] Comment on above: Performed By: #### H EMDF, PT, BMP3M, PHOS3, MG3, CK3 #### [place] [address] [place] #### VD25H #### [facility] [address] [place] [address] Sodium molar conc 131 mmol/L Low 135-145 [facility] Comment on above: Performed By: #### H EMDF, PT, BMP3M, PHOS3, MG3, CK3 #### [place] [address] [place] #### VD25H #### [facility] [address] [place] [address] Albumin mass conc 2.4 g/dL Low 3.5-5.0 [facility] Comment on above: Performed By: #### H EMDF, PT, BMP3M, PHOS3, MG3, CK3 #### [place] [address] [place] #### VD25H #### [facility] [address] [place] [address] Glucose,Bedsideon 08-16-2018 Glucose mass conc 100 mg/dL Normal 70-100 [facility] Comment on above: Result Comment: Test performed by glucose meter. Results may be 10%-15% lower than serum/plasma values. (CLIA ID [id number]) Performed By: #### H EMDF, PT, BMP3M, PHOS3, MG3, CK3 #### [facility] [address] [place] [address] #### VD25H #### [facility] [address] [place] [address] Glucose mass conc 98 mg/dL Normal 70-100 [facility] Comment on above: Result Comment: Test performed by glucose meter. Results may be 10%-15% lower than serum/plasma values. (CLIA ID [id number]) Performed By: #### H EMDF, PT, BMP3M, PHOS3, MG3, CK3 #### [facility] [address] [place] [address] #### VD25H #### [facility] [address] [place] [address] Glucose mass conc 110 mg/dL High 70-100 [facility] Comment on above: Result Comment: Test performed by glucose meter. Results may be 10%-15% lower than serum/plasma values. (CLIA ID [id number]) Performed By: #### H EMDF, PT, BMP3M, PHOS3, MG3, CK3 #### [facility] [address] [place] [address] #### VD25H #### [facility] [address] [place] [address] Glucose mass conc 113 mg/dL High 70-100 [facility] Comment on above: Result Comment: Test performed by glucose meter. Results may be 10%-15% lower than serum/plasma values. (CLIA ID [id number]) Performed By: #### H EMDF, PT, BMP3M, PHOS3, MG3, CK3 #### [facility] [address] [place], [place] #### VD25H #### [facility] [address] [place] [address] Glucose mass conc 126 mg/dL High 70-100 [facility] Comment on above: Result Comment: Test performed by glucose meter. Results may be 10%-15% lower than serum/plasma values. (CLIA ID [id number]) Performed By: #### H EMDF, PT, BMP3M, PHOS3, MG3, CK3 #### [address] #### VD25H #### [facility] [address] [place] [address] Hemogram w/ Autodiffon 08-16 Abs Baso Cnt 0.0 10*3/uL Normal 0.0-0.2 [facility] Comment on above: Performed By: #### H EMDF, PT, BMP3M, PHOS3, MG3, CK3 #### [address] #### VD25H #### [facility] [address] [place] [address] Abs Neutrophile Cnt 7.7 10*3/uL High 1.8-7.0 [facility] Comment on above: Performed By: #### H EMDF, PT, BMP3M, PHOS3, MG3, CK3 #### [address] #### VD25H #### [facility] [address] [place] [address] Basophils/100 WBC (Bld) 0.5 % Normal 0.0-2.0 [facility] Comment on above: Performed By: #### H EMDF, PT, BMP3M, PHOS3, MG3, CK3 #### [address] #### VD25H #### [facility] [address] [place] [address] Eosinophils #/vol (Bld) 0.1 10*3/uL Normal 0.0-0.5 [facility] Comment on above: Performed By: #### H EMDF, PT, BMP3M, PHOS3, MG3, CK3 #### [facility] [address] [place], [place] #### VD25H #### [facility] [address] [place] [address] Eosinophils/100 WBC (Bld) 1.5 % Normal 1.0-6.0 [facility] Comment on above: Performed By: #### H EMDF, PT, BMP3M, PHOS3, MG3, CK3 #### [address] #### VD25H #### [facility] [address] [place] [address] Erythrocyte distribution width Ratio (RBC) 14.4 % Normal 11.5-14.5 [facility] Comment on above: Performed By: #### H EMDF, PT, BMP3M, PHOS3, MG3, CK3 #### [address] #### VD25H #### [facility] [address] [place] [address] Granulocytes/100 WBC (Bld) 79.7 % Normal 40.0-80.0 [facility] Comment on above: Performed By: #### H EMDF, PT, BMP3M, PHOS3, MG3, CK3 #### [address] #### VD25H #### [facility] [address] [place] [address] Hematocrit Volume Fraction (Bld) 27.1 % Low 40.0-52.0 [facility] Comment on above: Performed By: #### H EMDF, PT, BMP3M, PHOS3, MG3, CK3 #### [address] #### VD25H #### [facility] [address] [place] [address] Hemoglobin mass conc (Bld) 9.2 g/dL Low 13.0-18.0 [facility] Comment on above: Performed By: #### H EMDF, PT, BMP3M, PHOS3, MG3, CK3 #### [address] #### VD25H #### [facility] [address] [place] [address] Lymphocytes #/vol (Bld) 1.0 10*3/uL Normal 1.0-4.3 [facility] Comment on above: Performed By: #### H EMDF, PT, BMP3M, PHOS3, MG3, CK3 #### [address] #### VD25H #### [place] [address] [place] [address] Lymphocytes/100 WBC (Bld) 10.0 % Low 20.0-40.0 [facility] Comment on above: Performed By: #### H EMDF, PT, BMP3M, PHOS3, MG3, CK3 #### [address] #### VD25H #### [place] [address] [place] [address] MCH Entitic mass (RBC) 28.5 pg Normal 26.0-34.0 [facility] Comment on above: Performed By: #### H EMDF, PT, BMP3M, PHOS3, MG3, CK3 #### [address] #### VD25H #### [place] [address] [place] [address] MCHC mass conc (RBC) 33.8 % Normal 32.0-36.0 [facility] Comment on above: Performed By: #### H EMDF, PT, BMP3M, PHOS3, MG3, CK3 #### [address] #### VD25H #### [facility] [address] [place] [address] MCV Entitic volume (RBC) 84.4 fL Normal 80.0-98.0 [facility] Comment on above: Performed By: #### H EMDF, PT, BMP3M, PHOS3, MG3, CK3 #### [place] [address] [place] #### VD25H #### [facility] [address] [place] [address] Monocytes #/vol (Bld) 0.8 10*3/uL Normal 0.0-0.8 [facility] Comment on above: Performed By: #### H EMDF, PT, BMP3M, PHOS3, MG3, CK3 #### [address] #### VD25H #### [facility] [address] [place] [address] Monocytes/100 WBC (Bld) 8.3 % Normal 2.0-10.0 [facility] Comment on above: Performed By: #### H EMDF, PT, BMP3M, PHOS3, MG3, CK3 #### [address] #### VD25H #### [facility] [address] [place] [address] Platelet mean volume Entitic volume (Bld) 8.4 fL Normal 7.4-10.4 [facility] Comment on above: Performed By: #### H EMDF, PT, BMP3M, PHOS3, MG3, CK3 #### [address] #### VD25H #### [facility] [address] [place] [address] Platelets #/vol (Bld) 245 10*3/uL Normal 140-440 [facility] Comment on above: Performed By: #### H EMDF, PT, BMP3M, PHOS3, MG3, CK3 #### [address] [place], [place] #### VD25H #### [facility] [address] [place] [address] RBC #/vol (Bld) 3.21 10*6/uL Low 4.40-5.90 [facility] Comment on above: Performed By: #### H EMDF, PT, BMP3M, PHOS3, MG3, CK3 #### [address] [place], [place] #### VD25H #### [facility] [address] [place] [address] WBC #/vol (Bld) 9.7 10*3/uL Normal 3.6-10.7 [facility] Comment on above: Performed By: #### H EMDF, PT, BMP3M, PHOS3, MG3, CK3 #### [address] #### VD25H #### [facility] [address] [place] [address] Magnesiumon 08-16-2018 Magnesium mass conc 2.1 mg/dL Normal 1.6-2.3 [facility] Comment on above: Performed By: #### H EMDF, PT, BMP3M, PHOS3, MG3, CK3 #### [address] #### VD25H #### [facility] [address] [place] [address] Phosphoruson 08-16-2018 Phosphate mass conc 4.4 mg/dL Normal 2.5-4.5 [facility] Comment on above: Performed By: #### H EMDF, PT, BMP3M, PHOS3, MG3, CK3 #### [address] #### VD25H #### [facility] [address] [place] [address] Potassiumon 08-16-2018 Potassium molar conc 3.5 mmol/L Normal 3.5-5.1 [facility] Comment on above: Performed By: #### H EMDF, PT, BMP3M, PHOS3, MG3, CK3 #### [address] #### VD25H #### [facility] [address] [place] [address] Procalcitoninon 08-16-2018 Protein mass conc 3.10 ng/mL Abnormal <0.10 [facility] Comment on above: Performed By: #### H EMDF, PT, BMP3M, PHOS3, MG3, CK3 #### [address] #### VD25H #### [place] [address] [place] [address] Prothrombin Timeon 9 INR Coag RelTime (PPP) [...] EMDF, PT, BMP3M, PHOS3, MG3, CK3 #### [address] #### VD25H #### [facility] [address] [place] [address] Prothrombin time (PT) Coag time (PPP) 11.8 s Normal 9.0-12.0 [facility] Comment on above: Result Comment: . Performed By: #### H EMDF, PT, BMP3M, PHOS3, MG3, CK3 #### [address] #### VD25H #### [facility] [address] [place] [address] US Abdomen Limitedon 019 US Abdomen Limited Patient Name: KATHYA HOOPER Ultrasound Exam Date/Time 08/16/2018 19:12:00 EDT Exam US Abdomen Limited Ordering Physician [id number] JOEY VILLAGRAN Accession Number [id number] CPT4 Codes 49596 () Reason For Exam elevated transaminases Report [...] Transcribed Date and Time: 08/16/2018 7:26 Normal [facility] Glucose,Bedsideon 08-15-2018 Glucose mass conc 98 mg/dL Normal 70-100 [facility] Comment on above: Result Comment: Test performed by glucose meter. Results may be 10%-15% lower than serum/plasma values. (CLIA ID [id number]) Performed By: #### H EMDF, PT, BMP3M, PHOS3, MG3, CK3 #### [facility] [address] [address] #### VD25H #### [facility] [address] [place] [address] Procalcitoninon 08-15-2018 Interpretation See Below Normal [facility] Comment on above: Result Comment: PCT <0.50 = Low risk of severe sepsis and/or septic shock. PCT >2.00 = High risk of severe sepsis and/or septic shock. Performed By: #### H EMDF, PT, BMP3M, PHOS3, MG3, CK3 #### [address] #### VD25H #### [facility] [address] [place] [address] CULTURE FUNGUSon 08-13-2018 CULTURE FUNGUS CULTURE FUNGUS --> Status: F No fungus isolated after 21 days. Normal [facility] Comment on above: Order Comment: Speci men Source Comment:Body Fluid Performed By: #### H EMDF, PT, BMP3M, PHOS3, MG3, CK3 #### [address] #### VD25H #### [place] [address] [place] [address] Hemogram w/ Autodiffon 08-01 Abs Baso Cnt 0.2 10*3/uL Normal 0.0-0.2 [facility] Comment on above: Performed By: #### H EMDF, PT, BMP3M, PHOS3, MG3, CK3 #### [address] #### VD25H #### [facility] [address] [place] [address] Abs Neutrophile Cnt 14.3 10*3/uL High 1.8-7.0 [facility] Comment on above: Performed By: #### H EMDF, PT, BMP3M, PHOS3, MG3, CK3 #### [address] #### VD25H #### [place] [address] [place] [address] Basophils/100 WBC (Bld) 1.0 % Normal 0.0-2.0 [facility] Comment on above: Performed By: #### H EMDF, PT, BMP3M, PHOS3, MG3, CK3 #### [facility] [address] [place], [place] #### VD25H #### [facility] [address] [place] [address] Eosinophils #/vol (Bld) 0.4 10*3/uL Normal 0.0-0.5 [facility] Comment on above: Performed By: #### H EMDF, PT, BMP3M, PHOS3, MG3, CK3 #### [address] #### VD25H #### [facility] [address] [place] [address] Eosinophils/100 WBC (Bld) 2.3 % Normal 1.0-6.0 [facility] Comment on above: Performed By: #### H EMDF, PT, BMP3M, PHOS3, MG3, CK3 #### [address] #### VD25H #### [facility] [address] [place] [address] Erythrocyte distribution width Ratio (RBC) 13.7 % Normal 11.5-14.5 [facility] Comment on above: Performed By: #### H EMDF, PT, BMP3M, PHOS3, MG3, CK3 #### [address] #### VD25H #### [facility] [address] [place] [address] Granulocytes/100 WBC (Bld) 82.1 % High 40.0-80.0 [facility] Comment on above: Performed By: #### H EMDF, PT, BMP3M, PHOS3, MG3, CK3 #### [address] #### VD25H #### [facility] [address] [place] [address] Hematocrit Volume Fraction (Bld) 31.2 % Low 40.0-52.0 [facility] Comment on above: Performed By: #### H EMDF, PT, BMP3M, PHOS3, MG3, CK3 #### [facility] [address] [place] #### VD25H #### [facility] [address] [place] [address] Hemoglobin mass conc (Bld) 10.5 g/dL Low 13.0-18.0 [facility] Comment on above: Performed By: #### H EMDF, PT, BMP3M, PHOS3, MG3, CK3 #### [address] #### VD25H #### [facility] [address] [place] [address] Lymphocytes #/vol (Bld) 1.6 10*3/uL Normal 1.0-4.3 [facility] Comment on above: Performed By: #### H EMDF, PT, BMP3M, PHOS3, MG3, CK3 #### [address] #### VD25H #### [facility] [address] [place] [address] Lymphocytes/100 WBC (Bld) 9.1 % Low 20.0-40.0 [facility] Comment on above: Performed By: #### H EMDF, PT, BMP3M, PHOS3, MG3, CK3 #### [address] #### VD25H #### [facility] [address] [place] [address] MCH Entitic mass (RBC) 28.9 pg Normal 26.0-34.0 [facility] Comment on above: Performed By: #### H EMDF, PT, BMP3M, PHOS3, MG3, CK3 #### [address] #### VD25H #### [place] [address] [place] [address] MCHC mass conc (RBC) 33.7 % Normal 32.0-36.0 [facility] Comment on above: Performed By: #### H EMDF, PT, BMP3M, PHOS3, MG3, CK3 #### [address] [address] #### VD25H #### [place] [address] [place] [address] MCV Entitic volume (RBC) 85.5 fL Normal 80.0-98.0 [facility] Comment on above: Performed By: #### H EMDF, PT, BMP3M, PHOS3, MG3, CK3 #### [address] #### VD25H #### [place] [address] [place] [address] Monocytes #/vol (Bld) 1.0 10*3/uL High 0.0-0.8 [facility] Comment on above: Performed By: #### H EMDF, PT, BMP3M, PHOS3, MG3, CK3 #### [address] #### VD25H #### [place] [address] [place] [address] Monocytes/100 WBC (Bld) 5.5 % Normal 2.0-10.0 [facility] Comment on above: Performed By: #### H EMDF, PT, BMP3M, PHOS3, MG3, CK3 #### [address] #### VD25H #### [place] [address] [place] [address] Platelet mean volume Entitic volume (Bld) 8.0 fL Normal 7.4-10.4 [facility] Comment on above: Performed By: #### H EMDF, PT, BMP3M, PHOS3, MG3, CK3 #### [address] [place] #### VD25H #### [facility] [address] [place] [address] Platelets #/vol (Bld) 425 10*3/uL Normal 140-440 [facility] Comment on above: Performed By: #### H EMDF, PT, BMP3M, PHOS3, MG3, CK3 #### [address] [place], [place] #### VD25H #### [facility] [address] [place] [address] RBC #/vol (Bld) 3.65 10*6/uL Low 4.40-5.90 [facility] Comment on above: Performed By: #### H EMDF, PT, BMP3M, PHOS3, MG3, CK3 #### [address] #### VD25H #### [place] [address] [place] [address] WBC #/vol (Bld) 17.4 10*3/uL High 3.6-10.7 [facility] Comment on above: Performed By: #### H EMDF, PT, BMP3M, PHOS3, MG3, CK3 #### [address] #### VD25H #### [place] [address] [place] [address] Basic Metabolic Panelon 04-0 Calcium mass conc 8.3 mg/dL Low 8.4-10.4 [facility] Comment on above: Performed By: #### H EMDF, PT, BMP3M, PHOS3, MG3, CK3 #### [address] #### VD25H #### [facility] [address] [place] [address] Glucose mass conc 114 mg/dL High 70-100 [facility] Comment on above: Performed By: #### H EMDF, PT, BMP3M, PHOS3, MG3, CK3 #### [facility] [address] [place] #### VD25H #### [facility] [address] [place] [address] Anion gap molar conc 10 Normal [facility] Comment on above: Performed By: #### H EMDF, PT, BMP3M, PHOS3, MG3, CK3 #### [place] [address] [place], [place] #### VD25H #### [facility] [address] [place] [address] CO2 molar conc 34 mmol/L High 22-30 [facility] Comment on above: Performed By: #### H EMDF, PT, BMP3M, PHOS3, MG3, CK3 #### [address] #### VD25H #### [facility] [address] [place] [address] Creatinine mass conc 0.52 mg/dL Normal 0.52-1.25 [facility] Comment on above: Performed By: #### H EMDF, PT, BMP3M, PHOS3, MG3, CK3 #### [address] [place], [place] #### VD25H #### [facility] [address] [place] [address] GFR/1.73 sq M predicted among blacks MDRD vol rate/area (S/P/Bld) mL/min/{1.73_m2} Normal >60 [facility] Comment on above: Performed By: #### H EMDF, PT, BMP3M, PHOS3, MG3, CK3 #### [place] [address] [place], [place] #### VD25H #### [facility] [address] [place] [address] GFR/1.73 sq M predicted among non-blacks MDRD vol rate/area (S/P/Bld) mL/min/{1.73_m2} Normal >60 [facility] Comment on above: Result Comment: Sour ce- MDRD equation with creatinine calibration to IDMS(NKDEP) eGFR not recommended for drug dose adjustment Performed By: #### H EMDF, PT, BMP3M, PHOS3, MG3, CK3 #### [place] [address] [facility] [place] #### VD25H #### [facility] [address] [place] [address] Urea nitrogen mass conc 23 mg/dL High 7-20 [facility] Comment on above: Performed By: #### H EMDF, PT, BMP3M, PHOS3, MG3, CK3 #### [place] [address] [facility] [place] #### VD25H #### [facility] [address] [place] [address] Chloride molar conc 95 mmol/L Low 98-107 [facility] Comment on above: Performed By: #### H EMDF, PT, BMP3M, PHOS3, MG3, CK3 #### [place] [address] [facility] [place] #### VD25H #### [facility] [address] [place] [address] Potassium molar conc 3.7 mmol/L Normal 3.5-5.1 [facility] Comment on above: Performed By: #### H EMDF, PT, BMP3M, PHOS3, MG3, CK3 #### [place] [address] [facility] [place] #### VD25H #### [facility] [address] [place] [address] Sodium molar conc 139 mmol/L Normal 135-145 [facility] Comment on above: Performed By: #### H EMDF, PT, BMP3M, PHOS3, MG3, CK3 #### [place] [address] [facility] [place] #### VD25H #### [facility] [address] [place] [address] Hemogram w/ Autodiffon 07-31 Abs Baso Cnt 0.2 10*3/uL Normal 0.0-0.2 [facility] Comment on above: Performed By: #### H EMDF, PT, BMP3M, PHOS3, MG3, CK3 #### [address] #### VD25H #### [facility] [address] [place] [address] Abs Neutrophile Cnt 13.4 10*3/uL High 1.8-7.0 [facility] Comment on above: Performed By: #### H EMDF, PT, BMP3M, PHOS3, MG3, CK3 #### [address] #### VD25H #### [facility] [address] [place] [address] Basophils/100 WBC (Bld) 1.0 % Normal 0.0-2.0 [facility] Comment on above: Performed By: #### H EMDF, PT, BMP3M, PHOS3, MG3, CK3 #### [address] #### VD25H #### [facility] [address] [place] [address] Eosinophils #/vol (Bld) 0.5 10*3/uL Normal 0.0-0.5 [facility] Comment on above: Performed By: #### H EMDF, PT, BMP3M, PHOS3, MG3, CK3 #### [address] #### VD25H #### [facility] [address] [place] [address] Eosinophils/100 WBC (Bld) 3.1 % Normal 1.0-6.0 [facility] Comment on above: Performed By: #### H EMDF, PT, BMP3M, PHOS3, MG3, CK3 #### [address] #### VD25H #### [facility] [address] [place] [address] Erythrocyte distribution width Ratio (RBC) 14.0 % Normal 11.5-14.5 [facility] Comment on above: Performed By: #### H EMDF, PT, BMP3M, PHOS3, MG3, CK3 #### [place] [address] [place] #### VD25H #### [facility] [address] [place] [address] Granulocytes/100 WBC (Bld) 80.6 % High 40.0-80.0 [facility] Comment on above: Performed By: #### H EMDF, PT, BMP3M, PHOS3, MG3, CK3 #### [address] #### VD25H #### [facility] [address] [place] [address] Hematocrit Volume Fraction (Bld) 32.3 % Low 40.0-52.0 [facility] Comment on above: Performed By: #### H EMDF, PT, BMP3M, PHOS3, MG3, CK3 #### [place] [address] [place] #### VD25H #### [facility] [address] [place] [address] Hemoglobin mass conc (Bld) 10.8 g/dL Low 13.0-18.0 [facility] Comment on above: Performed By: #### H EMDF, PT, BMP3M, PHOS3, MG3, CK3 #### [address] #### VD25H #### [facility] [address] [place] [address] Lymphocytes #/vol (Bld) 1.6 10*3/uL Normal 1.0-4.3 [facility] Comment on above: Performed By: #### H EMDF, PT, BMP3M, PHOS3, MG3, CK3 #### [address] [place], [place] #### VD25H #### [facility] [address] [place] [address] Lymphocytes/100 WBC (Bld) 9.8 % Low 20.0-40.0 [facility] Comment on above: Performed By: #### H EMDF, PT, BMP3M, PHOS3, MG3, CK3 #### [address] #### VD25H #### [facility] [address] [place] [address] MCH Entitic mass (RBC) 28.9 pg Normal 26.0-34.0 [facility] Comment on above: Performed By: #### H EMDF, PT, BMP3M, PHOS3, MG3, CK3 #### [address] #### VD25H #### [facility] [address] [place] [address] MCHC mass conc (RBC) 33.6 % Normal 32.0-36.0 [facility] Comment on above: Performed By: #### H EMDF, PT, BMP3M, PHOS3, MG3, CK3 #### [address] #### VD25H #### [facility] [address] [place] [address] MCV Entitic volume (RBC) 86.1 fL Normal 80.0-98.0 [facility] Comment on above: Performed By: #### H EMDF, PT, BMP3M, PHOS3, MG3, CK3 #### [address] #### VD25H #### [facility] [address] [place] [address] Monocytes #/vol (Bld) 0.9 10*3/uL High 0.0-0.8 [facility] Comment on above: Performed By: #### H EMDF, PT, BMP3M, PHOS3, MG3, CK3 #### [facility] [address] [place] #### VD25H #### [facility] [address] [place] [address] Monocytes/100 WBC (Bld) 5.5 % Normal 2.0-10.0 [facility] Comment on above: Performed By: #### H EMDF, PT, BMP3M, PHOS3, MG3, CK3 #### [place] [address] [place] #### VD25H #### [facility] [address] [place] [address] Platelet mean volume Entitic volume (Bld) 8.2 fL Normal 7.4-10.4 [facility] Comment on above: Performed By: #### H EMDF, PT, BMP3M, PHOS3, MG3, CK3 #### [address] #### VD25H #### [facility] [address] [place] [address] Platelets #/vol (Bld) 475 10*3/uL High 140-440 [facility] Comment on above: Performed By: #### H EMDF, PT, BMP3M, PHOS3, MG3, CK3 #### [address] #### VD25H #### [facility] [address] [place] [address] RBC #/vol (Bld) 3.75 10*6/uL Low 4.40-5.90 [facility] Comment on above: Performed By: #### H EMDF, PT, BMP3M, PHOS3, MG3, CK3 #### [address] [place], [place] #### VD25H #### [facility] [address] [place] [address] WBC #/vol (Bld) 16.6 10*3/uL High 3.6-10.7 [facility] Comment on above: Performed By: #### H EMDF, PT, BMP3M, PHOS3, MG3, CK3 #### [facility] [address] [place] #### VD25H #### [facility] [address] [place] [address] Magnesiumon 07-31-2018 Magnesium mass conc 2.4 mg/dL High 1.6-2.3 [facility] Comment on above: Performed By: #### H EMDF, PT, BMP3M, PHOS3, MG3, CK3 #### [place] [address] [place] #### VD25H #### [facility] [address] [place] [address] Phosphoruson 07-31-2018 Phosphate mass conc 4.5 mg/dL Normal 2.5-4.5 [facility] Comment on above: Performed By: #### H EMDF, PT, BMP3M, PHOS3, MG3, CK3 #### [place] [address] [place] #### VD25H #### [facility] [address] [place] [address] Basic Metabolic Panelon Calcium mass conc 8.6 mg/dL Normal 8.4-10.4 [facility] Comment on above: Performed By: #### H EMDF, PT, BMP3M, PHOS3, MG3, CK3 #### [facility] [address] [place] #### VD25H #### [facility] [address] [place] [address] Anion gap molar conc 8 Normal [facility] Comment on above: Performed By: #### H EMDF, PT, BMP3M, PHOS3, MG3, CK3 #### [place] [address] [address] [facility] [place] #### VD25H #### [facility] [address] [place] [address] CO2 molar conc 34 mmol/L High 22-30 [facility] Comment on above: Performed By: #### H EMDF, PT, BMP3M, PHOS3, MG3, CK3 #### [address] [address] #### VD25H #### [facility] [address] [place] [address] Creatinine mass conc 0.56 mg/dL Normal 0.52-1.25 [facility] Comment on above: Performed By: #### H EMDF, PT, BMP3M, PHOS3, MG3, CK3 #### [address] #### VD25H #### [facility] [address] [place] [address] GFR/1.73 sq M predicted among blacks MDRD vol rate/area (S/P/Bld) mL/min/{1.73_m2} Normal >60 [facility] Comment on above: Performed By: #### H EMDF, PT, BMP3M, PHOS3, MG3, CK3 #### [address] [address] #### VD25H #### [facility] [address] [place] [address] GFR/1.73 sq M predicted among non-blacks MDRD vol rate/area (S/P/Bld) mL/min/{1.73_m2} Normal >60 [facility] Comment on above: Result Comment: Sour ce- MDRD equation with creatinine calibration to IDMS(NKDEP) eGFR not recommended for drug dose adjustment Performed By: #### H EMDF, PT, BMP3M, PHOS3, MG3, CK3 #### [address] [address] #### VD25H #### [address] [place] [address] Glucose mass conc 121 mg/dL High 70-100 [facility] Comment on above: Performed By: #### H EMDF, PT, BMP3M, PHOS3, MG3, CK3 #### [facility] [address] [facility] [place] [address] #### VD25H #### [facility] [address] [place] [address] Urea nitrogen mass conc 29 mg/dL High 7-20 [facility] Comment on above: Performed By: #### H EMDF, PT, BMP3M, PHOS3, MG3, CK3 #### [facility] [address] [facility] [place] #### VD25H #### [facility] [address] [place] [address] Chloride molar conc 99 mmol/L Normal 98-107 [facility] Comment on above: Performed By: #### H EMDF, PT, BMP3M, PHOS3, MG3, CK3 #### [place] [address] [address] [facility] [place] #### VD25H #### [facility] [address] [place] [address] Potassium molar conc 3.7 mmol/L Normal 3.5-5.1 [facility] Comment on above: Performed By: #### H EMDF, PT, BMP3M, PHOS3, MG3, CK3 #### [facility] [address] [facility] [place] #### VD25H #### [facility] [address] [place] [address] Sodium molar conc 141 mmol/L Normal 135-145 [facility] Comment on above: Performed By: #### H EMDF, PT, BMP3M, PHOS3, MG3, CK3 #### [facility] [address] [facility] [place] #### VD25H #### [facility] [address] [place] [address] CR Abdomen APon 07-30-2018 CR Abdomen AP Patient Name: KATHYA HOOPER Diagnostic Radiology Exam Date/Time 07/30/2018 10:28:42 EDT Exam CR Abdomen AP Ordering Physician [id number] JOHNSON Accession Number [id number] CPT4 Codes 78682 () Reason For Exam abd distension Report [...] Transcribed Date and Time: 07/30/2018 3:57 Normal [facility] CR Chest Portableon 07-31-19 CR Chest Portable Patient Name: KATHYA HOOPER Diagnostic Radiology Exam Date/Time 07/30/2018 12:28:13 EDT Exam CR Chest Portable Ordering Physician SALO DAVIS Accession Number [id number] CPT4 Codes 83975 () Reason For Exam line reposition Report [...] Transcribed Date and Time: 07/30/2018 1:32 Normal [facility] CR Chest Portable Patient Name: KATHYA HOOPER Diagnostic Radiology Exam Date/Time 07/30/2018 06:40:08 EDT Exam CR Chest Portable Ordering Physician MARIA EUGENIA PEREZ Accession Number [id number] CPT4 Codes 82172 () Reason For Exam ETT placement Report [...] and Time: 07/30/2018 10:26 Normal [facility] Glucose,Bedsideon 07-30-2018 Glucose mass conc 125 mg/dL High 70-100 [facility] [employer] [facility] Comment on above: Result Comment: Test performed by glucose meter. Results may be 10%-15% lower than serum/plasma values. (CLIA ID [id number]) Performed By: #### H EMDF, PT, BMP3M, PHOS3, MG3, CK3 #### [facility] [employer] [address] [place] [address] #### VD25H #### [facility] [address] [place] [address] Glucose mass conc 117 mg/dL High 70-100 [facility] Comment on above: Result Comment: Test performed by glucose meter. Results may be 10%-15% lower than serum/plasma values. (CLIA ID [id number]) Performed By: #### H EMDF, PT, BMP3M, PHOS3, MG3, CK3 #### [address] #### VD25H #### [facility] [address] [place] [address] Glucose mass conc 44 mg/dL Low 70-100 [facility] Comment on above: Result Comment: Repe ated Test; Test performed by glucose meter. Results may be 10%-15% lower than serum/plasma values. (CLIA ID [id number]) Performed By: #### H EMDF, PT, BMP3M, PHOS3, MG3, CK3 #### [address] #### VD25H #### [facility] [address] [place] [address] Hemogram w/ Autodiffon 07-30 Abs Baso Cnt 0.2 10*3/uL Normal 0.0-0.2 [facility] Comment on above: Performed By: #### H EMDF, PT, BMP3M, PHOS3, MG3, CK3 #### [address] #### VD25H #### [facility] [address] [place] [address] Abs Neutrophile Cnt 13.2 10*3/uL High 1.8-7.0 [facility] Comment on above: Performed By: #### H EMDF, PT, BMP3M, PHOS3, MG3, CK3 #### [address] [address] #### VD25H #### [facility] [address] [place] [address] Basophils/100 WBC (Bld) 0.9 % Normal 0.0-2.0 [facility] Comment on above: Performed By: #### H EMDF, PT, BMP3M, PHOS3, MG3, CK3 #### [place] [address] [place], [place] #### VD25H #### [facility] [address] [place] [address] Eosinophils #/vol (Bld) 0.5 10*3/uL Normal 0.0-0.5 [facility] Comment on above: Performed By: #### H EMDF, PT, BMP3M, PHOS3, MG3, CK3 #### [address] #### VD25H #### [facility] [address] [place] [address] Eosinophils/100 WBC (Bld) 2.8 % Normal 1.0-6.0 [facility] Comment on above: Performed By: #### H EMDF, PT, BMP3M, PHOS3, MG3, CK3 #### [address] #### VD25H #### [facility] [address] [place] [address] Erythrocyte distribution width Ratio (RBC) 13.7 % Normal 11.5-14.5 [facility] Comment on above: Performed By: #### H EMDF, PT, BMP3M, PHOS3, MG3, CK3 #### [address] #### VD25H #### [facility] [address] [place] [address] Granulocytes/100 WBC (Bld) 76.6 % Normal 40.0-80.0 [facility] Comment on above: Performed By: #### H EMDF, PT, BMP3M, PHOS3, MG3, CK3 #### [address] #### VD25H #### [facility] [address] [place] [address] Hematocrit Volume Fraction (Bld) 31.4 % Low 40.0-52.0 [facility] Comment on above: Performed By: #### H EMDF, PT, BMP3M, PHOS3, MG3, CK3 #### [facility] [address] [place], [place] #### VD25H #### [facility] [address] [place] [address] Hemoglobin mass conc (Bld) 10.6 g/dL Low 13.0-18.0 [facility] Comment on above: Performed By: #### H EMDF, PT, BMP3M, PHOS3, MG3, CK3 #### [address] [address] [place], [place] #### VD25H #### [facility] [address] [place] [address] Lymphocytes #/vol (Bld) 2.2 10*3/uL Normal 1.0-4.3 [facility] Comment on above: Performed By: #### H EMDF, PT, BMP3M, PHOS3, MG3, CK3 #### [address] #### VD25H #### [facility] [address] [place] [address] Lymphocytes/100 WBC (Bld) 12.9 % Low 20.0-40.0 [facility] Comment on above: Performed By: #### H EMDF, PT, BMP3M, PHOS3, MG3, CK3 #### [facility] [address] [place], [place] #### VD25H #### [facility] [address] [place] [address] MCH Entitic mass (RBC) 29.2 pg Normal 26.0-34.0 [facility] Comment on above: Performed By: #### H EMDF, PT, BMP3M, PHOS3, MG3, CK3 #### [facility] [address] [place], [place] #### VD25H #### [facility] [address] [place] [address] MCHC mass conc (RBC) 33.8 % Normal 32.0-36.0 [facility] Comment on above: Performed By: #### H EMDF, PT, BMP3M, PHOS3, MG3, CK3 #### [address] #### VD25H #### [facility] [address] [place] [address] MCV Entitic volume (RBC) 86.4 fL Normal 80.0-98.0 [facility] Comment on above: Performed By: #### H EMDF, PT, BMP3M, PHOS3, MG3, CK3 #### [address] #### VD25H #### [place] [address] [place] [address] Monocytes #/vol (Bld) 1.2 10*3/uL High 0.0-0.8 [facility] Comment on above: Performed By: #### H EMDF, PT, BMP3M, PHOS3, MG3, CK3 #### [address] #### VD25H #### [place] [address] [place] [address] Monocytes/100 WBC (Bld) 6.8 % Normal 2.0-10.0 [facility] Comment on above: Performed By: #### H EMDF, PT, BMP3M, PHOS3, MG3, CK3 #### [address] #### VD25H #### [facility] [address] [place] [address] Platelet mean volume Entitic volume (Bld) 8.1 fL Normal 7.4-10.4 [facility] Comment on above: Performed By: #### H EMDF, PT, BMP3M, PHOS3, MG3, CK3 #### [address] #### VD25H #### [facility] [address] [place] [address] Platelets #/vol (Bld) 507 10*3/uL High 140-440 [facility] Comment on above: Performed By: #### H EMDF, PT, BMP3M, PHOS3, MG3, CK3 #### [facility] [address] [place] #### VD25H #### [facility] [address] [place] [address] RBC #/vol (Bld) 3.64 10*6/uL Low 4.40-5.90 [facility] Comment on above: Performed By: #### H EMDF, PT, BMP3M, PHOS3, MG3, CK3 #### [address] #### VD25H #### [facility] [address] [place] [address] WBC #/vol (Bld) 17.2 10*3/uL High 3.6-10.7 [facility] Comment on above: Performed By: #### H EMDF, PT, BMP3M, PHOS3, MG3, CK3 #### [address] #### VD25H #### [facility] [address] [place] [address] Magnesiumon 07-30-2018 Magnesium mass conc 2.5 mg/dL High 1.6-2.3 [facility] Comment on above: Performed By: #### H EMDF, PT, BMP3M, PHOS3, MG3, CK3 #### [address] #### VD25H #### [facility] [address] [place] [address] Phosphoruson 07-30-2018 Phosphate mass conc 4.5 mg/dL Normal 2.5-4.5 [facility] Comment on above: Performed By: #### H EMDF, PT, BMP3M, PHOS3, MG3, CK3 #### [facility] [address] [place] [address] #### VD25H #### [facility] [address] [place] [address] VL Venous Duplex US Lower Ex t Bilateralon 07-30-2018 VL Venous Duplex US Lower Ext Bilateral Patient Name: KATHYA HOOPER Ultrasound Exam Date/Time 07/30/2018 12:27:47 EDT Exam VL Venous Duplex US Lower Ext Bilateral Ordering Physician ETIENNE MARTÍNEZ JULIE Accession Number [id number] CPT4 Codes 91383 () Reason For Exam edema Report [facility] --- Lower Extremity Venous Duplex Report Patient Name: Kathya Hooper : 1955 Study Date: 07/30/2018 W (63yrs) Age: 63 Account: [id number] Gender: M Loc: [id number] BP: Ordering: Yesenia Martínez Technologist: Ordering Physician: Yesenia Martínez Dinkey Motor Operator: Barbara Suarez RDMS, T Interpreting Physician: Krysta Arora --- Location: [facility] --- INDICATIONS: Edema. --- CONCLUSIONS 1. [...] performed. The images were obtained using a [employer] E9 vascular ultrasound machine. --- VENOUS FLOW [...] ---------+-------+--- --+ Electronically signed by: Krysta Arora [id number] Final Dictated: 07/30/2018 1:30 pm Dictating Physician: KRYSTA ARORA Signed Date and Time: 07/30/2018 1:29 pm Signed by: KRYSTA ARORA Normal [facility] Arterial Blood Gaseson 07-29 CO2 molar conc 34.4 mmol/L High 23.0-27.0 [address] [facility] Comment on above: Performed By: #### H EMDF, PT, BMP3M, PHOS3, MG3, CK3 #### [facility] [address] [place] [address] #### VD25H #### [facility] [address] [place] [address] HCO3 molar conc (Bld) 33.0 mmol/L High 21.0-25.0 [facility] Comment on above: Performed By: #### H EMDF, PT, BMP3M, PHOS3, MG3, CK3 #### [facility] [address] [place] #### VD25H #### [facility] [address] [place] [address] Hemoglobin mass conc (Bld) 11.5 g/dL Normal [facility] Comment on above: Performed By: #### H EMDF, PT, BMP3M, PHOS3, MG3, CK3 #### [address] [address] [place], [place] #### VD25H #### [facility] [address] [place] [address] Oxygen ppres (Bld) 84.2 mm[Hg] Normal 80.0-100.0 [facility] Comment on above: Performed By: #### H EMDF, PT, BMP3M, PHOS3, MG3, CK3 #### [address] [address] [place] #### VD25H #### [facility] [address] [place] [address] Oxygen saturation in Blood 96.2 % Normal 95.0-100.0 [facility] Comment on above: Performed By: #### H EMDF, PT, BMP3M, PHOS3, MG3, CK3 #### [address] [address] [place] #### VD25H #### [facility] [address] [place] [address] pCO2 46.8 mm[Hg] High 35.0-45.0 [facility] Comment on above: Performed By: #### H EMDF, PT, BMP3M, PHOS3, MG3, CK3 #### [address] [address] [place] #### VD25H #### [facility] [address] [place] [address] pH (Bld) 7.466 High 7.350-7.450 [facility] Comment on above: Performed By: #### H EMDF, PT, BMP3M, PHOS3, MG3, CK3 #### [address] [address] [place] #### VD25H #### [facility] [address] [place] [address] Std Base Excess 8.2 mmol/L High -3.0-3.0 [facility] Comment on above: Performed By: #### H EMDF, PT, BMP3M, PHOS3, MG3, CK3 #### [address] [address] [place] #### VD25H #### [facility] [address] [place] [address] FIO2 .30 Normal [facility] Comment on above: Performed By: #### H EMDF, PT, BMP3M, PHOS3, MG3, CK3 #### [address] [place], [place] #### VD25H #### [facility] [address] [place] [address] Basic Metabolic Panelon 03-3 Calcium mass conc 8.5 mg/dL Normal 8.4-10.4 [facility] Comment on above: Performed By: #### H EMDF, PT, BMP3M, PHOS3, MG3, CK3 #### [place] [address] [address] [facility], [place] #### VD25H #### [facility] [address] [place] [address] Glucose mass conc 163 mg/dL High 70-100 [facility] Comment on above: Performed By: #### H EMDF, PT, BMP3M, PHOS3, MG3, CK3 #### [address] [place] #### VD25H #### [facility] [address] [place] [address] Anion gap molar conc 10 Normal [facility] Comment on above: Performed By: #### H EMDF, PT, BMP3M, PHOS3, MG3, CK3 #### [address] [address] [place] #### VD25H #### [facility] [address] [place] [address] CO2 molar conc 37 mmol/L High 22-30 [facility] Comment on above: Performed By: #### H EMDF, PT, BMP3M, PHOS3, MG3, CK3 #### [address] [place] [address] [place] #### VD25H #### [place] [address] [place] [address] Creatinine mass conc 0.57 mg/dL Normal 0.52-1.25 [facility] Comment on above: Performed By: #### H EMDF, PT, BMP3M, PHOS3, MG3, CK3 #### [address] #### VD25H #### [facility] [address] [place] [address] GFR/1.73 sq M predicted among blacks MDRD vol rate/area (S/P/Bld) mL/min/{1.73_m2} Normal >60 [facility] Comment on above: Performed By: #### H EMDF, PT, BMP3M, PHOS3, MG3, CK3 #### [address] #### VD25H #### [place] [address] [place] [address] GFR/1.73 sq M predicted among non-blacks MDRD vol rate/area (S/P/Bld) mL/min/{1.73_m2} Normal >60 [facility] Comment on above: Result Comment: Sour ce- MDRD equation with creatinine calibration to IDMS(NKDEP) eGFR not recommended for drug dose adjustment Performed By: #### H EMDF, PT, BMP3M, PHOS3, MG3, CK3 #### [address] [address] [place] #### VD25H #### [facility] [address] [place] [address] Urea nitrogen mass conc 30 mg/dL High 7-20 [facility] Comment on above: Performed By: #### H EMDF, PT, BMP3M, PHOS3, MG3, CK3 #### [address] [place] [address] [place] #### VD25H #### [facility] [address] [place] [address] Chloride molar conc 95 mmol/L Low 98-107 [facility] Comment on above: Performed By: #### H EMDF, PT, BMP3M, PHOS3, MG3, CK3 #### [place] [facility], [place] #### VD25H #### [facility] [address] [place] [address] Potassium molar conc 3.3 mmol/L Low 3.5-5.1 [facility] Comment on above: Performed By: #### H EMDF, PT, BMP3M, PHOS3, MG3, CK3 #### [address] [place] [address] [place] #### VD25H #### [facility] [address] [place] [address] Sodium molar conc 141 mmol/L Normal 135-145 [facility] Comment on above: Performed By: #### H EMDF, PT, BMP3M, PHOS3, MG3, CK3 #### [place] [facility] [place] #### VD25H #### [facility] [address] [place] [address] CR Chest Portableon 07-30-19 19 CR Chest Portable Patient Name: KATHYA HOOPER Diagnostic Radiology Exam Date/Time 07/29/2018 07:01:44 EDT Exam CR Chest Portable Ordering Physician MARIA EUGENIA PEREZ Accession Number [id number] CPT4 Codes 00574 () Reason For Exam ETT placement Report [...] Date and Time: 07/29/2018 9:04 Normal [facility],Bedsideon 07-29-2018 Glucose mass conc 124 mg/dL High 70-100 [facility] Comment on above: Result Comment: Test performed by glucose meter. Results may be 10%-15% lower than serum/plasma values. (CLIA ID [id number]) Performed By: #### H EMDF, PT, BMP3M, PHOS3, MG3, CK3 #### [facility] [address] [place], [place] #### VD25H #### [facility] [address] [place] [address] Glucose mass conc 175 mg/dL High 70-100 [email or web address] Comment on above: Result Comment: Test performed by glucose meter. Results may be 10%-15% lower than serum/plasma values. (CLIA ID [id number]) Performed By: #### H EMDF, PT, BMP3M, PHOS3, MG3, CK3 #### [facility] [address] [place] [address] #### VD25H #### [facility] [address] [place] [address] Glucose mass conc 138 mg/dL High 70-100 [facility] Comment on above: Result Comment: Test performed by glucose meter. Results may be 10%-15% lower than serum/plasma values. (CLIA ID [id number]) Performed By: #### H EMDF, PT, BMP3M, PHOS3, MG3, CK3 #### [facility] [address] #### VD25H #### [facility] [address] [place] [address] Glucose mass conc 147 mg/dL High 70-100 [facility] Comment on above: Result Comment: Test performed by glucose meter. Results may be 10%-15% lower than serum/plasma values. (CLIA ID [id number]) Performed By: #### H EMDF, PT, BMP3M, PHOS3, MG3, CK3 #### [facility] [address] #### VD25H #### [facility] [address] [place] [address] Hemogram w/ Autodiffon 07-29 Erythrocyte distribution width Ratio (RBC) 13.8 % Normal 11.5-14.5 [facility] Comment on above: Performed By: #### H EMDF, PT, BMP3M, PHOS3, MG3, CK3 #### [facility] [address] #### VD25H #### [facility] [address] [place] [address] Hematocrit Volume Fraction (Bld) 32.9 % Low 40.0-52.0 [facility] Comment on above: Performed By: #### H EMDF, PT, BMP3M, PHOS3, MG3, CK3 #### [facility] [address] #### VD25H #### [facility] [address] [place] [address] Hemoglobin mass conc (Bld) 11.0 g/dL Low 13.0-18.0 [facility] Comment on above: Performed By: #### H EMDF, PT, BMP3M, PHOS3, MG3, CK3 #### [address] [place], [place] #### VD25H #### [facility] [address] [place] [address] MCH Entitic mass (RBC) 29.0 pg Normal 26.0-34.0 [facility] Comment on above: Performed By: #### H EMDF, PT, BMP3M, PHOS3, MG3, CK3 #### [address] #### VD25H #### [facility] [address] [place] [address] MCHC mass conc (RBC) 33.6 % Normal 32.0-36.0 [facility] Comment on above: Performed By: #### H EMDF, PT, BMP3M, PHOS3, MG3, CK3 #### [address] #### VD25H #### [facility] [address] [place] [address] MCV Entitic volume (RBC) 86.3 fL Normal 80.0-98.0 [facility] Comment on above: Performed By: #### H EMDF, PT, BMP3M, PHOS3, MG3, CK3 #### [address] #### VD25H #### [facility] [address] [place] [address] Platelet mean volume Entitic volume (Bld) 8.1 fL Normal 7.4-10.4 [facility] Comment on above: Performed By: #### H EMDF, PT, BMP3M, PHOS3, MG3, CK3 #### [address] #### VD25H #### [facility] [address] [place] [address] Platelets #/vol (Bld) 501 10*3/uL High 140-440 [facility] Comment on above: Performed By: #### H EMDF, PT, BMP3M, PHOS3, MG3, CK3 #### [facility] [address] [place] #### VD25H #### [facility] [address] [place] [address] RBC #/vol (Bld) 3.81 10*6/uL Low 4.40-5.90 [facility] Comment on above: Performed By: #### H EMDF, PT, BMP3M, PHOS3, MG3, CK3 #### [address] #### VD25H #### [place] [address] [place] [address] WBC #/vol (Bld) 20.8 10*3/uL High 3.6-10.7 [facility] Comment on above: Performed By: #### H EMDF, PT, BMP3M, PHOS3, MG3, CK3 #### [address] #### VD25H #### [place] [address] [place] [address] Magnesiumon 07-29-2018 Magnesium mass conc 2.5 mg/dL High 1.6-2.3 [facility] Comment on above: Performed By: #### H EMDF, PT, BMP3M, PHOS3, MG3, CK3 #### [address] #### VD25H #### [facility] [address] [place] [address] Manual Diffon 07-29-2018 Abs Neutrophile Cnt 17.3 10*3/uL High 2.2-8.2 [facility] Comment on above: Performed By: #### H EMDF, PT, BMP3M, PHOS3, MG3, CK3 #### [facility] [address] [place] #### VD25H #### [facility] [address] [place] [address] Bands 1 % Normal 0-3 [facility] Comment on above: Performed By: #### H EMDF, PT, BMP3M, PHOS3, MG3, CK3 #### [facility] [address] [place] #### VD25H #### [facility] [address] [place] [address] Eosinophils #/vol (Bld) 0.6 10*3/uL High 0.0-0.5 [facility] Comment on above: Performed By: #### H EMDF, PT, BMP3M, PHOS3, MG3, CK3 #### [address] [place] [address] [place] #### VD25H #### [facility] [address] [place] [address] Eosinophils/100 WBC (Bld) 3 % Normal 1-6 [facility] Comment on above: Performed By: #### H EMDF, PT, BMP3M, PHOS3, MG3, CK3 #### [address] [place] #### VD25H #### [facility] [address] [place] [address] Lymphocytes #/vol (Bld) 2.3 10*3/uL Normal 1.1-4.5 [facility] Comment on above: Performed By: #### H EMDF, PT, BMP3M, PHOS3, MG3, CK3 #### [address] [place] #### VD25H #### [facility] [address] [place] [address] Lymphocytes/100 WBC (Bld) 11 % Low 20-40 [facility] Comment on above: Performed By: #### H EMDF, PT, BMP3M, PHOS3, MG3, CK3 #### [address] [address] [place] #### VD25H #### [facility] [address] [place] [address] Metamyelocytes 1 % Abnormal <1 [facility] Comment on above: Performed By: #### H EMDF, PT, BMP3M, PHOS3, MG3, CK3 #### [address] [address] [place] #### VD25H #### [facility] [address] [place] [address] Monocytes #/vol (Bld) 0.4 10*3/uL Normal 0.2-1.1 [facility] Comment on above: Performed By: #### H EMDF, PT, BMP3M, PHOS3, MG3, CK3 #### [address] [address] [place] #### VD25H #### [facility] [address] [place] [address] Monocytes/100 WBC (Bld) 2 % Normal 2-10 [facility] Comment on above: Performed By: #### H EMDF, PT, BMP3M, PHOS3, MG3, CK3 #### [address] [place] [address] [place] #### VD25H #### [facility] [address] [place] [address] RBC morphology finding Nom (Bld) See Prev Normal [facility] Comment on above: Performed By: #### H EMDF, PT, BMP3M, PHOS3, MG3, CK3 #### [address] [place] #### VD25H #### [facility] [address] [place] [address] Seg Neutrophils 82 % High 40-80 [facility] Comment on above: Performed By: #### H EMDF, PT, BMP3M, PHOS3, MG3, CK3 #### [place] [place] #### VD25H #### [place] [address] [place] [address] Abs Baso Cnt 0.0 10*3/uL Normal 0.0-0.2 [facility] Comment on above: Performed By: #### H EMDF, PT, BMP3M, PHOS3, MG3, CK3 #### [address] #### VD25H #### [facility] [address] [place] [address] Basophils/100 WBC (Bld) 0 % Normal 0-2 [facility] Comment on above: Performed By: #### H EMDF, PT, BMP3M, PHOS3, MG3, CK3 #### [address] #### VD25H #### [place] [address] [place] [address] Cells counted 100 Normal [facility] Comment on above: Performed By: #### H EMDF, PT, BMP3M, PHOS3, MG3, CK3 #### [address] #### VD25H #### [place] [address] [place] [address] Phosphoruson 07-29-2018 Phosphate mass conc 4.2 mg/dL Normal 2.5-4.5 [facility] Comment on above: Performed By: #### H EMDF, PT, BMP3M, PHOS3, MG3, CK3 #### [address] #### VD25H #### [place] [address] [place] [address] Procalcitoninon 07-29-2018 Protein mass conc 0.11 ng/mL Abnormal <0.10 [facility] Comment on above: Performed By: #### H EMDF, PT, BMP3M, PHOS3, MG3, CK3 #### [address] #### VD25H #### [facility] [address] [place] [address] Interpretation See Below Normal [facility] Comment on above: Result Comment: PCT <0.50 = Low risk of severe sepsis and/or septic shock. PCT >2.00 = High risk of severe sepsis and/or septic shock. Performed By: #### H EMDF, PT, BMP3M, PHOS3, MG3, CK3 #### [address] #### VD25H #### [facility] [address] [place] [address] Vancomycin Troughon 07-30-19 19 Vancomycin Trough 12.2 ug/mL Low 15.0-20.0 [facility] Comment on above: Result Comment: . Performed By: #### H EMDF, PT, BMP3M, PHOS3, MG3, CK3 #### [address] #### VD25H #### [place] [address] [place] [address] Basic Metabolic Panelon 07-01 Calcium mass conc 8.6 mg/dL Normal 8.4-10.4 [facility] Comment on above: Performed By: #### H EMDF, PT, BMP3M, PHOS3, MG3, CK3 #### [address] #### VD25H #### [place] [address] [place] [address] Glucose mass conc 158 mg/dL High 70-100 [facility] Comment on above: Performed By: #### H EMDF, PT, BMP3M, PHOS3, MG3, CK3 #### [address] #### VD25H #### [place] [address] [place] [address] Urea nitrogen mass conc 29 mg/dL High 7-20 [facility] Comment on above: Performed By: #### H EMDF, PT, BMP3M, PHOS3, MG3, CK3 #### [address] [place], [place] #### VD25H #### [facility] [address] [place] [address] Anion gap molar conc 9 Normal [facility] Comment on above: Performed By: #### H EMDF, PT, BMP3M, PHOS3, MG3, CK3 #### [address] [place] [address] [place] #### VD25H #### [facility] [address] [place] [address] CO2 molar conc 32 mmol/L High 22-30 [facility] Comment on above: Performed By: #### H EMDF, PT, BMP3M, PHOS3, MG3, CK3 #### [address] #### VD25H #### [facility] [address] [place] [address] Creatinine mass conc 0.61 mg/dL Normal 0.52-1.25 [facility] Comment on above: Performed By: #### H EMDF, PT, BMP3M, PHOS3, MG3, CK3 #### [address] #### VD25H #### [facility] [address] [place] [address] GFR/1.73 sq M predicted among blacks MDRD vol rate/area (S/P/Bld) mL/min/{1.73_m2} Normal >60 [facility] Comment on above: Performed By: #### H EMDF, PT, BMP3M, PHOS3, MG3, CK3 #### [address] [place], [place] #### VD25H #### [facility] [address] [place] [address] GFR/1.73 sq M predicted among non-blacks MDRD vol rate/area (S/P/Bld) mL/min/{1.73_m2} Normal >60 [facility] Comment on above: Result Comment: Sour ce- MDRD equation with creatinine calibration to IDMS(NKDEP) eGFR not recommended for drug dose adjustment Performed By: #### H EMDF, PT, BMP3M, PHOS3, MG3, CK3 #### [facility] [address] [place], [place] #### VD25H #### [facility] [address] [place] [address] Potassium molar conc 3.6 mmol/L Normal 3.5-5.1 [facility] Comment on above: Performed By: #### H EMDF, PT, BMP3M, PHOS3, MG3, CK3 #### [place] [address] [place], [place] #### VD25H #### [facility] [address] [place] [address] Chloride molar conc 100 mmol/L Normal 98-107 [facility] Comment on above: Performed By: #### H EMDF, PT, BMP3M, PHOS3, MG3, CK3 #### [place] [address] [place], [place] #### VD25H #### [facility] [address] [place] [address] Sodium molar conc 141 mmol/L Normal 135-145 [facility] Comment on above: Performed By: #### H EMDF, PT, BMP3M, PHOS3, MG3, CK3 #### [place] [address] [place], [place] #### VD25H #### [facility] [address] [place] [address] CR Chest Portableon 07-29-19 19 CR Chest Portable Patient Name: KATHYA HOOPER Diagnostic Radiology Exam Date/Time 07/28/2018 07:09:40 EDT Exam CR Chest Portable Ordering Physician MARIA EUGENIA PEREZ Accession Number [id number] CPT4 Codes 47322 () Reason For Exam ETT placement Report [...] Transcribed Date and Time: 07/28/2018 7:16 Normal [facility] Glucose,Bedsideon 07-28-2018 Glucose mass conc 149 mg/dL High 70-100 [email or web address] Comment on above: Result Comment: Test performed by glucose meter. Results may be 10%-15% lower than serum/plasma values. (CLIA ID [id number]) Performed By: #### H EMDF, PT, BMP3M, PHOS3, MG3, CK3 #### [facility] [address] [place] [address] #### VD25H #### [facility] [address] [place] [address] Glucose mass conc 142 mg/dL High 70-100 [email or web address] Comment on above: Result Comment: Test performed by glucose meter. Results may be 10%-15% lower than serum/plasma values. (CLIA ID [id number]) Performed By: #### H EMDF, PT, BMP3M, PHOS3, MG3, CK3 #### [facility] [address] [place] [address] #### VD25H #### [facility] [address] [place] [address] Hemogram w/ Autodiffon 07-28 Erythrocyte distribution width Ratio (RBC) 13.8 % Normal 11.5-14.5 [facility] Comment on above: Performed By: #### H EMDF, PT, BMP3M, PHOS3, MG3, CK3 #### [address] #### VD25H #### [facility] [address] [place] [address] Hematocrit Volume Fraction (Bld) 33.0 % Low 40.0-52.0 [facility] Comment on above: Performed By: #### H EMDF, PT, BMP3M, PHOS3, MG3, CK3 #### [address] #### VD25H #### [facility] [address] [place] [address] Hemoglobin mass conc (Bld) 11.0 g/dL Low 13.0-18.0 [facility] Comment on above: Performed By: #### H EMDF, PT, BMP3M, PHOS3, MG3, CK3 #### [address] #### VD25H #### [facility] [address] [place] [address] MCH Entitic mass (RBC) 28.7 pg Normal 26.0-34.0 [facility] Comment on above: Performed By: #### H EMDF, PT, BMP3M, PHOS3, MG3, CK3 #### [address] #### VD25H #### [facility] [address] [place] [address] MCHC mass conc (RBC) 33.4 % Normal 32.0-36.0 [facility] Comment on above: Performed By: #### H EMDF, PT, BMP3M, PHOS3, MG3, CK3 #### [address] #### VD25H #### [facility] [address] [place] [address] MCV Entitic volume (RBC) 86.0 fL Normal 80.0-98.0 [facility] Comment on above: Performed By: #### H EMDF, PT, BMP3M, PHOS3, MG3, CK3 #### [place] [address] [place], [place] #### VD25H #### [facility] [address] [place] [address] Platelet mean volume Entitic volume (Bld) 8.4 fL Normal 7.4-10.4 [facility] Comment on above: Performed By: #### H EMDF, PT, BMP3M, PHOS3, MG3, CK3 #### [address] #### VD25H #### [facility] [address] [place] [address] Platelets #/vol (Bld) 477 10*3/uL High 140-440 [facility] Comment on above: Performed By: #### H EMDF, PT, BMP3M, PHOS3, MG3, CK3 #### [address] [place], [place] #### VD25H #### [facility] [address] [place] [address] RBC #/vol (Bld) 3.84 10*6/uL Low 4.40-5.90 [facility] Comment on above: Performed By: #### H EMDF, PT, BMP3M, PHOS3, MG3, CK3 #### [facility] [address] [place], [place] #### VD25H #### [facility] [address] [place] [address] WBC #/vol (Bld) 18.1 10*3/uL High 3.6-10.7 [facility] Comment on above: Performed By: #### H EMDF, PT, BMP3M, PHOS3, MG3, CK3 #### [address] #### VD25H #### [facility] [address] [place] [address] Magnesiumon 07-28-2018 Magnesium mass conc 2.4 mg/dL High 1.6-2.3 [facility] Comment on above: Performed By: #### H EMDF, PT, BMP3M, PHOS3, MG3, CK3 #### [place] [address] [place], [place] #### VD25H #### [facility] [address] [place] [address] Manual Diffon 07-28-2018 Abs Neutrophile Cnt 14.8 10*3/uL High 2.2-8.2 [facility] Comment on above: Performed By: #### H EMDF, PT, BMP3M, PHOS3, MG3, CK3 #### [place] [address] [place], [place] #### VD25H #### [place] [address] [place] [address] Anisocytosis Ql (Bld) Slight Normal [facility] Comment on above: Performed By: #### H EMDF, PT, BMP3M, PHOS3, MG3, CK3 #### [address] [place], [place] #### VD25H #### [facility] [address] [place] [address] Hypochromia Slight Normal [facility] Comment on above: Performed By: #### H EMDF, PT, BMP3M, PHOS3, MG3, CK3 #### [address] [place], [place] #### VD25H #### [facility] [address] [place] [address] Lymphocytes #/vol (Bld) 1.3 10*3/uL Normal 1.1-4.5 [facility] Comment on above: Performed By: #### H EMDF, PT, BMP3M, PHOS3, MG3, CK3 #### [place] [address] [place], [place] #### VD25H #### [facility] [address] [place] [address] Lymphocytes/100 WBC (Bld) 7 % Low 20-40 [facility] Comment on above: Performed By: #### H EMDF, PT, BMP3M, PHOS3, MG3, CK3 #### [address] [place], [place] #### VD25H #### [facility] [address] [place] [address] Microcytosis Slight Normal [facility] Comment on above: Performed By: #### H EMDF, PT, BMP3M, PHOS3, MG3, CK3 #### [address] #### VD25H #### [facility] [address] [place] [address] Monocytes #/vol (Bld) 2.0 10*3/uL High 0.2-1.1 [facility] Comment on above: Performed By: #### H EMDF, PT, BMP3M, PHOS3, MG3, CK3 #### [address] #### VD25H #### [facility] [address] [place] [address] Monocytes/100 WBC (Bld) 11 % High 2-10 [facility] Comment on above: Performed By: #### H EMDF, PT, BMP3M, PHOS3, MG3, CK3 #### [place] [address] [place], [place] #### VD25H #### [facility] [address] [place] [address] RBC morphology finding Nom (Bld) ABNORMAL Normal [facility] Comment on above: Performed By: #### H EMDF, PT, BMP3M, PHOS3, MG3, CK3 #### [address] #### VD25H #### [facility] [address] [place] [address] Seg Neutrophils 82 % High 40-80 [facility] Comment on above: Performed By: #### H EMDF, PT, BMP3M, PHOS3, MG3, CK3 #### [place] [address] [place], [place] #### VD25H #### [facility] [address] [place] [address] Abs Baso Cnt 0.0 10*3/uL Normal 0.0-0.2 [facility] Comment on above: Performed By: #### H EMDF, PT, BMP3M, PHOS3, MG3, CK3 #### [address] #### VD25H #### [facility] [address] [place] [address] Bands 0 % Normal 0-3 [facility] Comment on above: Performed By: #### H EMDF, PT, BMP3M, PHOS3, MG3, CK3 #### [place] [address] [place], [place] #### VD25H #### [facility] [address] [place] [address] Basophils/100 WBC (Bld) 0 % Normal 0-2 [facility] Comment on above: Performed By: #### H EMDF, PT, BMP3M, PHOS3, MG3, CK3 #### [address] #### VD25H #### [facility] [address] [place] [address] Cells counted 100 Normal [facility] Comment on above: Performed By: #### H EMDF, PT, BMP3M, PHOS3, MG3, CK3 #### [address] #### VD25H #### [facility] [address] [place] [address] Eosinophils #/vol (Bld) 0.0 10*3/uL Normal 0.0-0.5 [facility] Comment on above: Performed By: #### H EMDF, PT, BMP3M, PHOS3, MG3, CK3 #### [address] #### VD25H #### [facility] [address] [place] [address] Eosinophils/100 WBC (Bld) 0 % Low 1-6 [facility] Comment on above: Performed By: #### H EMDF, PT, BMP3M, PHOS3, MG3, CK3 #### [address] #### VD25H #### [facility] [address] [place] [address] Phosphoruson 07-28-2018 Phosphate mass conc 4.4 mg/dL Normal 2.5-4.5 [facility] Comment on above: Performed By: #### H EMDF, PT, BMP3M, PHOS3, MG3, CK3 #### [address] #### VD25H #### [facility] [address] [place] [address] Vancomycin Troughon 07-29-19 19 Vancomycin Trough 12.9 ug/mL Low 15.0-20.0 [facility] Comment on above: Result Comment: . Performed By: #### H EMDF, PT, BMP3M, PHOS3, MG3, CK3 #### [address] #### VD25H #### [facility] [address] [place] [address] Arterial Blood Gaseson 07-27 CO2 molar conc 28.4 mmol/L High 23.0-27.0 [facility] Comment on above: Performed By: #### H EMDF, PT, BMP3M, PHOS3, MG3, CK3 #### [address] #### VD25H #### [facility] [address] [place] [address] HCO3 molar conc (Bld) 27.2 mmol/L High 21.0-25.0 [facility] Comment on above: Performed By: #### H EMDF, PT, BMP3M, PHOS3, MG3, CK3 #### [facility] [address] [place], [place] #### VD25H #### [facility] [address] [place] [address] Hemoglobin mass conc (Bld) 11.7 g/dL Normal [facility] Comment on above: Performed By: #### H EMDF, PT, BMP3M, PHOS3, MG3, CK3 #### [address] #### VD25H #### [facility] [address] [place] [address] Oxygen ppres (Bld) 91.3 mm[Hg] Normal 80.0-100.0 [facility] Comment on above: Performed By: #### H EMDF, PT, BMP3M, PHOS3, MG3, CK3 #### [address] #### VD25H #### [facility] [address] [place] [address] Oxygen saturation in Blood 96.9 % Normal 95.0-100.0 [facility] Comment on above: Performed By: #### H EMDF, PT, BMP3M, PHOS3, MG3, CK3 #### [place] [address] [place], [place] #### VD25H #### [facility] [address] [place] [address] pCO2 39.0 mm[Hg] Normal 35.0-45.0 [facility] Comment on above: Performed By: #### H EMDF, PT, BMP3M, PHOS3, MG3, CK3 #### [address] #### VD25H #### [facility] [address] [place] [address] pH (Bld) 7.461 High 7.350-7.450 [facility] Comment on above: Performed By: #### H EMDF, PT, BMP3M, PHOS3, MG3, CK3 #### [facility] [address] [place] [address] #### VD25H #### [facility] [address] [place] [address] Std Base Excess 3.2 mmol/L High -3.0-3.0 [facility] Comment on above: Performed By: #### H EMDF, PT, BMP3M, PHOS3, MG3, CK3 #### [place] [address] [place], [place] #### VD25H #### [facility] [address] [place] [address] FIO2 No data Normal [facility] Comment on above: Performed By: #### H EMDF, PT, BMP3M, PHOS3, MG3, CK3 #### [place] [address] [place], [place] #### VD25H #### [facility] [address] [place] [address] Basic Metabolic Panelon - Anion gap molar conc 12 Normal [facility] Comment on above: Performed By: #### H EMDF, PT, BMP3M, PHOS3, MG3, CK3 #### [address] [place] [address] [place], [place] #### VD25H #### [facility] [address] [place] [address] Calcium mass conc 8.3 mg/dL Low 8.4-10.4 [facility] Comment on above: Performed By: #### H EMDF, PT, BMP3M, PHOS3, MG3, CK3 #### [address] #### VD25H #### [facility] [address] [place] [address] CO2 molar conc 28 mmol/L Normal 22-30 [facility] Comment on above: Performed By: #### H EMDF, PT, BMP3M, PHOS3, MG3, CK3 #### [place] [address] [facility] [address] #### VD25H #### [facility] [address] [place] [address] Glucose mass conc 156 mg/dL High 70-100 [facility] Comment on above: Performed By: #### H EMDF, PT, BMP3M, PHOS3, MG3, CK3 #### [place] [address] [facility] [address] #### VD25H #### [facility] [address] [place] [address] Urea nitrogen mass conc 21 mg/dL High 7-20 [facility] Comment on above: Performed By: #### H EMDF, PT, BMP3M, PHOS3, MG3, CK3 #### [place] [address] [facility] [place] #### VD25H #### [facility] [address] [place] [address] Creatinine mass conc 0.53 mg/dL Normal 0.52-1.25 [facility] Comment on above: Performed By: #### H EMDF, PT, BMP3M, PHOS3, MG3, CK3 #### [address] [place] [place] #### VD25H #### [facility] [address] [place] [address] GFR/1.73 sq M predicted among blacks MDRD vol rate/area (S/P/Bld) mL/min/{1.73_m2} Normal >60 [facility] Comment on above: Performed By: #### H EMDF, PT, BMP3M, PHOS3, MG3, CK3 #### [place] [address] [facility], [place] #### VD25H #### [facility] [address] [place] [address] GFR/1.73 sq M predicted among non-blacks MDRD vol rate/area (S/P/Bld) mL/min/{1.73_m2} Normal >60 [facility] Comment on above: Result Comment: Sour ce- MDRD equation with creatinine calibration to IDMS(NKDEP) eGFR not recommended for drug dose adjustment Performed By: #### H EMDF, PT, BMP3M, PHOS3, MG3, CK3 #### [facility] [address] [place], [place] #### VD25H #### [facility] [address] [place] [address] Potassium molar conc 3.2 mmol/L Low 3.5-5.1 [facility] Comment on above: Performed By: #### H EMDF, PT, BMP3M, PHOS3, MG3, CK3 #### [place] [address] [place], [place] #### VD25H #### [facility] [address] [place] [address] Chloride molar conc 99 mmol/L Normal 98-107 [facility] Comment on above: Performed By: #### H EMDF, PT, BMP3M, PHOS3, MG3, CK3 #### [facility] [address] [facility] [place] #### VD25H #### [facility] [address] [place] [address] Sodium molar conc 139 mmol/L Normal 135-145 [facility] Comment on above: Performed By: #### H EMDF, PT, BMP3M, PHOS3, MG3, CK3 #### [facility] [address] [place], [place] #### VD25H #### [facility] [address] [place] [address] CR Chest Portableon 07-28-19 19 CR Chest Portable Patient Name: KATHYA HOOPER Diagnostic Radiology Exam Date/Time 07/27/2018 07:08:59 EDT Exam CR Chest Portable Ordering Physician MARIA EUGENIA PEREZ Accession Number [id number] CPT4 Codes 19115 () Reason For Exam ETT placement Report [...] Transcribed Date and Time: 07/27/2018 8:02 Normal [facility] Glucose,Bedsideon 07-27-2018 Glucose mass conc 151 mg/dL High 70-100 [facility] [facility] Comment on above: Result Comment: Test performed by glucose meter. Results may be 10%-15% lower than serum/plasma values. (CLIA ID [id number]) Performed By: #### H EMDF, PT, BMP3M, PHOS3, MG3, CK3 #### [facility] [address] [place] [address] #### VD25H #### [facility] [address] [place] [address] Glucose mass conc 131 mg/dL High 70-100 [facility] [employer] [facility] Comment on above: Result Comment: Test performed by glucose meter. Results may be 10%-15% lower than serum/plasma values. (CLIA ID [id number]) Performed By: #### H EMDF, PT, BMP3M, PHOS3, MG3, CK3 #### [facility] [address] [place] [address] #### VD25H #### [facility] [address] [place] [address] Glucose mass conc 123 mg/dL High 70-100 [facility] Comment on above: Result Comment: Test performed by glucose meter. Results may be 10%-15% lower than serum/plasma values. (CLIA ID [id number]) Performed By: #### H EMDF, PT, BMP3M, PHOS3, MG3, CK3 #### [employer] [address] #### VD25H #### [employer] [facility] [address] [place] [address] Glucose mass conc 133 mg/dL High 70-100 [facility] Comment on above: Result Comment: Test performed by glucose meter. Results may be 10%-15% lower than serum/plasma values. (CLIA ID [id number]) Performed By: #### H EMDF, PT, BMP3M, PHOS3, MG3, CK3 #### [facility] [address] #### VD25H #### [facility] [address] [place] [address] Hemogram w/ Autodiffon 07-27 Erythrocyte distribution width Ratio (RBC) 13.5 % Normal 11.5-14.5 [facility] [employer] Comment on above: Performed By: #### H EMDF, PT, BMP3M, PHOS3, MG3, CK3 #### [facility] [address] #### VD25H #### [facility] [address] [place] [address] Hematocrit Volume Fraction (Bld) 32.5 % Low 40.0-52.0 [facility] Comment on above: Performed By: #### H EMDF, PT, BMP3M, PHOS3, MG3, CK3 #### [employer] [address] #### VD25H #### [facility] [address] [place] [address] Hemoglobin mass conc (Bld) 11.1 g/dL Low 13.0-18.0 [facility] Comment on above: Performed By: #### H EMDF, PT, BMP3M, PHOS3, MG3, CK3 #### [place] [address] [place], [place] #### VD25H #### [facility] [address] [place] [address] MCH Entitic mass (RBC) 29.2 pg Normal 26.0-34.0 [facility] Comment on above: Performed By: #### H EMDF, PT, BMP3M, PHOS3, MG3, CK3 #### [place] [address] [place] #### VD25H #### [facility] [address] [place] [address] MCHC mass conc (RBC) 34.1 % Normal 32.0-36.0 [facility] Comment on above: Performed By: #### H EMDF, PT, BMP3M, PHOS3, MG3, CK3 #### [place] [address] [place] #### VD25H #### [facility] [address] [place] [address] MCV Entitic volume (RBC) 85.7 fL Normal 80.0-98.0 [facility] Comment on above: Performed By: #### H EMDF, PT, BMP3M, PHOS3, MG3, CK3 #### [address] #### VD25H #### [facility] [address] [place] [address] Platelet mean volume Entitic volume (Bld) 7.9 fL Normal 7.4-10.4 [facility] Comment on above: Performed By: #### H EMDF, PT, BMP3M, PHOS3, MG3, CK3 #### [address] [place], [place] #### VD25H #### [facility] [address] [place] [address] Platelets #/vol (Bld) 466 10*3/uL High 140-440 [facility] Comment on above: Performed By: #### H EMDF, PT, BMP3M, PHOS3, MG3, CK3 #### [place] [address] [place] #### VD25H #### [facility] [address] [place] [address] RBC #/vol (Bld) 3.79 10*6/uL Low 4.40-5.90 [facility] Comment on above: Performed By: #### H EMDF, PT, BMP3M, PHOS3, MG3, CK3 #### [address] #### VD25H #### [address] [place] [address] WBC #/vol (Bld) 18.7 10*3/uL High 3.6-10.7 [facility] Comment on above: Performed By: #### H EMDF, PT, BMP3M, PHOS3, MG3, CK3 #### [address] #### VD25H #### [facility] [address] [place] [address] Magnesiumon 07-27-2018 Magnesium mass conc 2.1 mg/dL Normal 1.6-2.3 [facility] Comment on above: Performed By: #### H EMDF, PT, BMP3M, PHOS3, MG3, CK3 #### [address] [place], [place] #### VD25H #### [facility] [address] [place] [address] Manual Diffon 07-27-2018 RBC morphology finding Nom (Bld) Normal Normal [facility] Comment on above: Performed By: #### H EMDF, PT, BMP3M, PHOS3, MG3, CK3 #### [address] #### VD25H #### [place] [address] [place] [address] Abs Neutrophile Cnt 14.2 10*3/uL High 2.2-8.2 [facility] Comment on above: Performed By: #### H EMDF, PT, BMP3M, PHOS3, MG3, CK3 #### [facility] [address] [place], [place] #### VD25H #### [facility] [address] [place] [address] Atypical Lymphocytes 2 % Abnormal <1 [facility] Comment on above: Performed By: #### H EMDF, PT, BMP3M, PHOS3, MG3, CK3 #### [address] #### VD25H #### [facility] [address] [place] [address] Bands 5 % High 0-3 [facility] Comment on above: Performed By: #### H EMDF, PT, BMP3M, PHOS3, MG3, CK3 #### [address] [place], [place] #### VD25H #### [facility] [address] [place] [address] Eosinophils #/vol (Bld) 0.6 10*3/uL High 0.0-0.5 [facility] Comment on above: Performed By: #### H EMDF, PT, BMP3M, PHOS3, MG3, CK3 #### [address] #### VD25H #### [facility] [address] [place] [address] Eosinophils/100 WBC (Bld) 3 % Normal 1-6 [facility] Comment on above: Performed By: #### H EMDF, PT, BMP3M, PHOS3, MG3, CK3 #### [address] #### VD25H #### [facility] [address] [place] [address] Lymphocytes #/vol (Bld) 2.1 10*3/uL Normal 1.1-4.5 [facility] Comment on above: Performed By: #### H EMDF, PT, BMP3M, PHOS3, MG3, CK3 #### [facility] [address] [place], [place] #### VD25H #### [facility] [address] [place] [address] Lymphocytes/100 WBC (Bld) 11 % Low 20-40 [facility] Comment on above: Performed By: #### H EMDF, PT, BMP3M, PHOS3, MG3, CK3 #### [place] [address] [place] #### VD25H #### [facility] [address] [place] [address] Monocytes #/vol (Bld) 1.5 10*3/uL High 0.2-1.1 [facility] Comment on above: Performed By: #### H EMDF, PT, BMP3M, PHOS3, MG3, CK3 #### [place] [address] [place] #### VD25H #### [facility] [address] [place] [address] Monocytes/100 WBC (Bld) 8 % Normal 2-10 [facility] Comment on above: Performed By: #### H EMDF, PT, BMP3M, PHOS3, MG3, CK3 #### [facility] [address] [place], [place] #### VD25H #### [facility] [address] [place] [address] NRBC 1 /100{WBCs} High -1-0 [facility] Comment on above: Result Comment: Newb orn (<60 days) 1-10 Adult <1 Performed By: #### H EMDF, PT, BMP3M, PHOS3, MG3, CK3 #### [facility] [address] [place], [place] #### VD25H #### [facility] [address] [place] [address] Seg Neutrophils 71 % Normal 40-80 [facility] Comment on above: Performed By: #### H EMDF, PT, BMP3M, PHOS3, MG3, CK3 #### [facility] [address] [place] #### VD25H #### [facility] [address] [place] [address] Abs Baso Cnt 0.0 10*3/uL Normal 0.0-0.2 [facility] Comment on above: Performed By: #### H EMDF, PT, BMP3M, PHOS3, MG3, CK3 #### [place] [address] [place] #### VD25H #### [facility] [address] [place] [address] Basophils/100 WBC (Bld) 0 % Normal 0-2 S [facility] Comment on above: Performed By: #### H EMDF, PT, BMP3M, PHOS3, MG3, CK3 #### [address] [address] [address] [place], [place] #### VD25H #### [facility] [address] [place] [address] Cells counted 100 Normal [facility] Comment on above: Performed By: #### H EMDF, PT, BMP3M, PHOS3, MG3, CK3 #### [address] [address] [address] [place], [place] #### VD25H #### [facility] [address] [place] [address] Phosphoruson 07-27-2018 Phosphate mass conc 3.0 mg/dL Normal 2.5-4.5 [facility] Comment on above: Performed By: #### H EMDF, PT, BMP3M, PHOS3, MG3, CK3 #### [address] [address] [address] [place], [place] #### VD25H #### [facility] [address] [place] [address] VL Venous Duplex US Lower Ex t Bilateralon 07-27-2018 VL Venous Duplex US Lower Ext Bilateral Patient Name: KATHYA HOOPER Ultrasound Exam Date/Time 07/27/2018 10:56:18 EDT Exam VL Venous Duplex US Lower Ext Bilateral Ordering Physician ETIENNE MARTÍNEZ JULIE Accession Number [id number] CPT4 Codes 71461 () Reason For Exam edema Report [facility] --- Lower Extremity Venous Duplex Report Patient Name: Kathya Hooper : 1955 Study Date: 07/27/2018 W (63yrs) Age: 63 Account: [id number] Gender: M Loc: [id number] BP: Ordering: Yesenia Martínez Technologist: Ordering Physician: Yesenia Martínez Dinkey Motor Operator: Mary Man RVT Interpreting Physician: Ricardo Hall MD --- Location: [facility] --- INDICATIONS: Bilateral leg edema. --- [...] performed. The images were obtained using a [employer] E9 vascular ultrasound machine. The study was [...] --+ Electronically signed by: Ricardo Hall MD [id number] Final Dictated: 07/27/2018 12:55 pm Dictating Physician: RICARDO HALL Signed Date and Time: 07/27/2018 12:55 pm Signed by: RICARDO HALL Normal [facility] Basic Metabolic Panelon 03- Calcium mass conc 7.9 mg/dL Low 8.4-10.4 [facility] Comment on above: Performed By: #### H EMDF, PT, BMP3M, PHOS3, MG3, CK3 #### [address] [address] [address] [place], [place] #### VD25H #### [facility] [address] [place] [address] Anion gap molar conc 9 Normal [facility] Comment on above: Performed By: #### H EMDF, PT, BMP3M, PHOS3, MG3, CK3 #### [address] [address] [address] [facility], [place] #### VD25H #### [facility] [address] [place] [address] CO2 molar conc 24 mmol/L Normal 22-30 [facility] Comment on above: Performed By: #### H EMDF, PT, BMP3M, PHOS3, MG3, CK3 #### [facility] [address] [facility], [place] #### VD25H #### [facility] [address] [place] [address] Creatinine mass conc 0.54 mg/dL Normal 0.52-1.25 [facility] Comment on above: Performed By: #### H EMDF, PT, BMP3M, PHOS3, MG3, CK3 #### [facility] [address] [facility] [address] #### VD25H #### [facility] [address] [place] [address] GFR/1.73 sq M predicted among blacks MDRD vol rate/area (S/P/Bld) mL/min/{1.73_m2} Normal >60 [facility] Comment on above: Performed By: #### H EMDF, PT, BMP3M, PHOS3, MG3, CK3 #### [facility] [address] [place] [address] #### VD25H #### [facility] [address] [place] [address] GFR/1.73 sq M predicted among non-blacks MDRD vol rate/area (S/P/Bld) mL/min/{1.73_m2} Normal >60 [facility] Comment on above: Result Comment: Sour ce- MDRD equation with creatinine calibration to IDMS(NKDEP) eGFR not recommended for drug dose adjustment Performed By: #### H EMDF, PT, BMP3M, PHOS3, MG3, CK3 #### [address] [address] [address] [place], [place] #### VD25H #### [facility] [address] [place] [address] Glucose mass conc 166 mg/dL High 70-100 [facility] Comment on above: Performed By: #### H EMDF, PT, BMP3M, PHOS3, MG3, CK3 #### [address] [address] [place] [address] #### VD25H #### [facility] [address] [place] [address] Urea nitrogen mass conc 21 mg/dL High 7-20 [facility] Comment on above: Performed By: #### H EMDF, PT, BMP3M, PHOS3, MG3, CK3 #### [address] [place] [address] #### VD25H #### [facility] [address] [place] [address] Chloride molar conc 107 mmol/L Normal 98-107 [facility] Comment on above: Performed By: #### H EMDF, PT, BMP3M, PHOS3, MG3, CK3 #### [address] [address] [place] [address] #### VD25H #### [facility] [address] [place] [address] Potassium molar conc 3.7 mmol/L Normal 3.5-5.1 [facility] Comment on above: Performed By: #### H EMDF, PT, BMP3M, PHOS3, MG3, CK3 #### [facility] [address] [facility] [place] [address] #### VD25H #### [facility] [address] [place] [address] Sodium molar conc 140 mmol/L Normal 135-145 [facility] Comment on above: Performed By: #### H EMDF, PT, BMP3M, PHOS3, MG3, CK3 #### [facility] [address] [place], [place] #### VD25H #### [facility] [address] [place] [address] CR Chest Portableon 07-27-19 19 CR Chest Portable Patient Name: KATHYA HOOPER Diagnostic Radiology Exam Date/Time 07/26/2018 06:06:25 EDT Exam CR Chest Portable Ordering Physician MARIA EUGENIA PEREZ Accession Number [id number] CPT4 Codes 84960 () Reason For Exam ETT placement Report [...] Transcribed Date and Time: 07/26/2018 9:15 [facility] Glucose,Bedsideon 07-26-2018 Glucose mass conc 160 mg/dL High 70-100 [facility] Comment on above: Result Comment: Test performed by glucose meter. Results may be 10%-15% lower than serum/plasma values. (CLIA ID [id number]) Performed By: #### H EMDF, PT, BMP3M, PHOS3, MG3, CK3 #### [facility] [address] [place] [address] #### VD25H #### [facility] [address] [place] [address] Glucose mass conc 166 mg/dL High 70-100 [facility] Comment on above: Result Comment: Test performed by glucose meter. Results may be 10%-15% lower than serum/plasma values. (CLIA ID [id number]) Performed By: #### H EMDF, PT, BMP3M, PHOS3, MG3, CK3 #### [facility] [address] [place] [address] #### VD25H #### [facility] [address] [place] [address] Glucose mass conc 183 mg/dL High 70-100 [facility] Comment on above: Result Comment: Test performed by glucose meter. Results may be 10%-15% lower than serum/plasma values. (CLIA ID [id number]) Performed By: #### H EMDF, PT, BMP3M, PHOS3, MG3, CK3 #### [facility] [address] [place] [address] #### VD25H #### [facility] [address] [place] [address] Glucose mass conc 151 mg/dL High 70-100 [facility] Comment on above: Result Comment: Test performed by glucose meter. Results may be 10%-15% lower than serum/plasma values. (CLIA ID [id number]) Performed By: #### H EMDF, PT, BMP3M, PHOS3, MG3, CK3 #### [address] [place], [place] #### VD25H #### [facility] [address] [place] [address] Hemogram w/ Autodiffon 07-26 Erythrocyte distribution width Ratio (RBC) 13.7 % Normal 11.5-14.5 [facility] Comment on above: Performed By: #### H EMDF, PT, BMP3M, PHOS3, MG3, CK3 #### [address] #### VD25H #### [facility] [address] [place] [address] Hematocrit Volume Fraction (Bld) 31.1 % Low 40.0-52.0 [facility] Comment on above: Performed By: #### H EMDF, PT, BMP3M, PHOS3, MG3, CK3 #### [address] #### VD25H #### [facility] [address] [place] [address] Hemoglobin mass conc (Bld) 10.6 g/dL Low 13.0-18.0 [facility] Comment on above: Performed By: #### H EMDF, PT, BMP3M, PHOS3, MG3, CK3 #### [address] #### VD25H #### [facility] [address] [place] [address] MCH Entitic mass (RBC) 29.2 pg Normal 26.0-34.0 [facility] Comment on above: Performed By: #### H EMDF, PT, BMP3M, PHOS3, MG3, CK3 #### [address] #### VD25H #### [place] [address] [place] [address] MCHC mass conc (RBC) 34.0 % Normal 32.0-36.0 [facility] Comment on above: Performed By: #### H EMDF, PT, BMP3M, PHOS3, MG3, CK3 #### [address] #### VD25H #### [facility] [address] [place] [address] MCV Entitic volume (RBC) 86.1 fL Normal 80.0-98.0 [facility] Comment on above: Performed By: #### H EMDF, PT, BMP3M, PHOS3, MG3, CK3 #### [address] #### VD25H #### [facility] [address] [place] [address] Platelet mean volume Entitic volume (Bld) 8.3 fL Normal 7.4-10.4 [facility] Comment on above: Performed By: #### H EMDF, PT, BMP3M, PHOS3, MG3, CK3 #### [address] #### VD25H #### [facility] [address] [place] [address] Platelets #/vol (Bld) 364 10*3/uL Normal 140-440 [facility] Comment on above: Performed By: #### H EMDF, PT, BMP3M, PHOS3, MG3, CK3 #### [address] #### VD25H #### [facility] [address] [place] [address] RBC #/vol (Bld) 3.62 10*6/uL Low 4.40-5.90 [facility] Comment on above: Performed By: #### H EMDF, PT, BMP3M, PHOS3, MG3, CK3 #### [address] #### VD25H #### [facility] [address] [place] [address] WBC #/vol (Bld) 15.2 10*3/uL High 3.6-10.7 [facility] Comment on above: Performed By: #### H EMDF, PT, BMP3M, PHOS3, MG3, CK3 #### [facility] [address] [place], [place] #### VD25H #### [facility] [address] [place] [address] Magnesiumon 07-26-2018 Magnesium mass conc 2.0 mg/dL Normal 1.6-2.3 [facility] Comment on above: Performed By: #### H EMDF, PT, BMP3M, PHOS3, MG3, CK3 #### [address] #### VD25H #### [place] [address] [place] [address] Manual Diffon 07-26-2018 Abs Neutrophile Cnt 12.8 10*3/uL High 2.2-8.2 [facility] Comment on above: Performed By: #### H EMDF, PT, BMP3M, PHOS3, MG3, CK3 #### [address] #### VD25H #### [facility] [address] [place] [address] Lymphocytes #/vol (Bld) 1.4 10*3/uL Normal 1.1-4.5 [facility] Comment on above: Performed By: #### H EMDF, PT, BMP3M, PHOS3, MG3, CK3 #### [address] #### VD25H #### [facility] [address] [place] [address] Lymphocytes/100 WBC (Bld) 9 % Low 20-40 [facility] Comment on above: Performed By: #### H EMDF, PT, BMP3M, PHOS3, MG3, CK3 #### [address] #### VD25H #### [facility] [address] [place] [address] Monocytes #/vol (Bld) 1.1 10*3/uL Normal 0.2-1.1 [facility] Comment on above: Performed By: #### H EMDF, PT, BMP3M, PHOS3, MG3, CK3 #### [address] [address] [place], [place] #### VD25H #### [facility] [address] [place] [address] Monocytes/100 WBC (Bld) 7 % Normal 2-10 [facility] Comment on above: Performed By: #### H EMDF, PT, BMP3M, PHOS3, MG3, CK3 #### [address] #### VD25H #### [place] [address] [place] [address] RBC morphology finding Nom (Bld) Normal Normal [facility] Comment on above: Performed By: #### H EMDF, PT, BMP3M, PHOS3, MG3, CK3 #### [address] [place], [place] #### VD25H #### [facility] [address] [place] [address] Seg Neutrophils 84 % High 40-80 [facility] Comment on above: Performed By: #### H EMDF, PT, BMP3M, PHOS3, MG3, CK3 #### [address] [place], [place] #### VD25H #### [facility] [address] [place] [address] Abs Baso Cnt 0.0 10*3/uL Normal 0.0-0.2 [facility] Comment on above: Performed By: #### H EMDF, PT, BMP3M, PHOS3, MG3, CK3 #### [address] [address] [place], [place] #### VD25H #### [facility] [address] [place] [address] Bands 0 % Normal 0-3 [facility] Comment on above: Performed By: #### H EMDF, PT, BMP3M, PHOS3, MG3, CK3 #### [facility] [address] [place] #### VD25H #### [facility] [address] [place] [address] Basophils/100 WBC (Bld) 0 % Normal 0-2 [facility] Comment on above: Performed By: #### H EMDF, PT, BMP3M, PHOS3, MG3, CK3 #### [address] [place], [place] #### VD25H #### [facility] [address] [place] [address] Cells counted 100 Normal [facility] Comment on above: Performed By: #### H EMDF, PT, BMP3M, PHOS3, MG3, CK3 #### [address] [place], [place] #### VD25H #### [facility] [address] [place] [address] Eosinophils #/vol (Bld) 0.0 10*3/uL Normal 0.0-0.5 [facility] Comment on above: Performed By: #### H EMDF, PT, BMP3M, PHOS3, MG3, CK3 #### [address] [place], [place] #### VD25H #### [facility] [address] [place] [address] Eosinophils/100 WBC (Bld) 0 % Low 1-6 [facility] Comment on above: Performed By: #### H EMDF, PT, BMP3M, PHOS3, MG3, CK3 #### [address] [address] [place] #### VD25H #### [facility] [address] [place] [address] Phosphoruson 07-26-2018 Phosphate mass conc 3.1 mg/dL Normal 2.5-4.5 [facility] Comment on above: Performed By: #### H EMDF, PT, BMP3M, PHOS3, MG3, CK3 #### [address] #### VD25H #### [facility] [address] [facility] [place] [address] Vancomycin Troughon 07-27-19 19 Vancomycin Trough 8.9 ug/mL Low 15.0-20.0 [facility] Comment on above: Result Comment: . Performed By: #### H EMDF, PT, BMP3M, PHOS3, MG3, CK3 #### [address] #### VD25H #### [place] [address] [place] [address] Arterial Blood Gaseson 07-25 CO2 molar conc 22.0 mmol/L Low 23.0-27.0 [facility] Comment on above: Performed By: #### H EMDF, PT, BMP3M, PHOS3, MG3, CK3 #### [address] #### VD25H #### [facility] [address] [place] [address] HCO3 molar conc (Bld) 21.1 mmol/L Normal 21.0-25.0 [facility] Comment on above: Performed By: #### H EMDF, PT, BMP3M, PHOS3, MG3, CK3 #### [address] #### VD25H #### [facility] [address] [place] [address] Hemoglobin mass conc (Bld) 10.1 g/dL Normal [facility] Comment on above: Performed By: #### H EMDF, PT, BMP3M, PHOS3, MG3, CK3 #### [address] #### VD25H #### [facility] [address] [place] [address] Oxygen ppres (Bld) 88.3 mm[Hg] Normal 80.0-100.0 [facility] Comment on above: Performed By: #### H EMDF, PT, BMP3M, PHOS3, MG3, CK3 #### [address] [place] #### VD25H #### [facility] [address] [place] [address] Oxygen saturation in Blood 96.8 % Normal 95.0-100.0 [facility] Comment on above: Performed By: #### H EMDF, PT, BMP3M, PHOS3, MG3, CK3 #### [address] [place], [place] #### VD25H #### [facility] [address] [place] [address] pCO2 29.9 mm[Hg] Low 35.0-45.0 [facility] Comment on above: Performed By: #### H EMDF, PT, BMP3M, PHOS3, MG3, CK3 #### [address] [place], [place] #### VD25H #### [facility] [address] [place] [address] pH (Bld) 7.467 High 7.350-7.450 [facility] Comment on above: Performed By: #### H EMDF, PT, BMP3M, PHOS3, MG3, CK3 #### [address] [facility] [place] #### VD25H #### [facility] [address] [place] [address] Std Base Excess -1.9 mmol/L Normal -3.0-3.0 [facility] Comment on above: Performed By: #### H EMDF, PT, BMP3M, PHOS3, MG3, CK3 #### [address] [place] #### VD25H #### [facility] [address] [place] [address] FIO2 .30 Normal [facility] Comment on above: Performed By: #### H EMDF, PT, BMP3M, PHOS3, MG3, CK3 #### [address] [place] #### VD25H #### [facility] [address] [place] [address] Basic Metabolic Panelon 03-2 Calcium mass conc 8.1 mg/dL Low 8.4-10.4 [facility] Comment on above: Performed By: #### H EMDF, PT, BMP3M, PHOS3, MG3, CK3 #### [address] #### VD25H #### [facility] [address] [place] [address] Anion gap molar conc 8 Normal [facility] Comment on above: Performed By: #### H EMDF, PT, BMP3M, PHOS3, MG3, CK3 #### [address] [address] [place] #### VD25H #### [facility] [address] [place] [address] CO2 molar conc 24 mmol/L Normal 22-30 [facility] Comment on above: Performed By: #### H EMDF, PT, BMP3M, PHOS3, MG3, CK3 #### [address] [facility] [place] #### VD25H #### [facility] [address] [place] [address] Creatinine mass conc 0.55 mg/dL Normal 0.52-1.25 [facility] Comment on above: Performed By: #### H EMDF, PT, BMP3M, PHOS3, MG3, CK3 #### [address] [address] [place] #### VD25H #### [facility] [address] [place] [address] GFR/1.73 sq M predicted among blacks MDRD vol rate/area (S/P/Bld) mL/min/{1.73_m2} Normal >60 [facility] Comment on above: Performed By: #### H EMDF, PT, BMP3M, PHOS3, MG3, CK3 #### [address] #### VD25H #### [facility] [address] [place] [address] GFR/1.73 sq M predicted among non-blacks MDRD vol rate/area (S/P/Bld) mL/min/{1.73_m2} Normal >60 [facility] Comment on above: Result Comment: Sour ce- MDRD equation with creatinine calibration to IDMS(NKDEP) eGFR not recommended for drug dose adjustment Performed By: #### H EMDF, PT, BMP3M, PHOS3, MG3, CK3 #### [address] #### VD25H #### [facility] [address] [place] [address] Glucose mass conc 184 mg/dL High 70-100 [facility] Comment on above: Performed By: #### H EMDF, PT, BMP3M, PHOS3, MG3, CK3 #### [address] #### VD25H #### [facility] [address] [place] [address] Urea nitrogen mass conc 20 mg/dL Normal 7-20 [facility] Comment on above: Performed By: #### H EMDF, PT, BMP3M, PHOS3, MG3, CK3 #### [address] #### VD25H #### [facility] [address] [place] [address] Chloride molar conc 109 mmol/L High 98-107 [facility] Comment on above: Performed By: #### H EMDF, PT, BMP3M, PHOS3, MG3, CK3 #### [facility] [address] [place] [address] #### VD25H #### [facility] [address] [place] [address] Potassium molar conc 4.0 mmol/L Normal 3.5-5.1 [facility] Comment on above: Performed By: #### H EMDF, PT, BMP3M, PHOS3, MG3, CK3 #### [facility] [address] [place] [address] #### VD25H #### [facility] [address] [place] [address] Sodium molar conc 141 mmol/L Normal 135-145 [facility] Comment on above: Performed By: #### H EMDF, PT, BMP3M, PHOS3, MG3, CK3 #### [facility] [address] [place] [address] #### VD25H #### [facility] [address] [place] [address] CR Chest Portableon 07-26-19 19 CR Chest Portable Patient Name: KATHYA HOOPER Diagnostic Radiology Exam Date/Time 07/25/2018 06:39:42 EDT Exam CR Chest Portable Ordering Physician MARIA EUGENIA PEREZ Accession Number [id number] CPT4 Codes 77243 () Reason For Exam ETT placement Report [...] Dictated: 07/25/2018 7:45 am Dictating Physician: MD ELIZABETH, PETE Signed Date and Time: 07/25/2018 7:46 am Signed by: MD ELIZABETH, PETE Transcribed Date and Time: 07/25/2018 7:45 Normal [facility] CULTURE URINEon 07-25-2018 CULTURE URINE [...] 4 S Trimeth/Sulfa(CHRISTI) <= 20 S Normal [facility] Comment on above: Order Comment: Speci men Source Comment:Urine, clean catch Performed By: #### H EMDF, PT, BMP3M, PHOS3, MG3, CK3 #### [facility] [address] [place] [address] #### VD25H #### [facility] [employer] [address] [place] [address] Glucose,Bedsideon 07-25-2018 Glucose mass conc 140 mg/dL High 70-100 [facility] Comment on above: Result Comment: Test performed by glucose meter. Results may be 10%-15% lower than serum/plasma values. (CLIA ID [id number]) Performed By: #### H EMDF, PT, BMP3M, PHOS3, MG3, CK3 #### [facility] [address] [place], [place] #### VD25H #### [facility] [address] [place] [address] Glucose mass conc 158 mg/dL High 70-100 [facility] Comment on above: Result Comment: Test performed by glucose meter. Results may be 10%-15% lower than serum/plasma values. (CLIA ID [id number]) Performed By: #### H EMDF, PT, BMP3M, PHOS3, MG3, CK3 #### [facility] [address] [place], [place] #### VD25H #### [facility] [address] [place] [address] Glucose mass conc 172 mg/dL High 70-100 [facility] Comment on above: Result Comment: Test performed by glucose meter. Results may be 10%-15% lower than serum/plasma values. (CLIA ID [id number]) Performed By: #### H EMDF, PT, BMP3M, PHOS3, MG3, CK3 #### [facility] [address] [place], [place] #### VD25H #### [facility] [address] [place] [address] Glucose mass conc 169 mg/dL High 70-100 [facility] Comment on above: Result Comment: Test performed by glucose meter. Results may be 10%-15% lower than serum/plasma values. (CLIA ID [id number]) Performed By: #### H EMDF, PT, BMP3M, PHOS3, MG3, CK3 #### [facility] [address] [place], [place] #### VD25H #### [facility] [address] [place] [address] Glucose mass conc 165 mg/dL High 70-100 [facility] Comment on above: Result Comment: Test performed by glucose meter. Results may be 10%-15% lower than serum/plasma values. (CLIA ID [id number]) Performed By: #### H EMDF, PT, BMP3M, PHOS3, MG3, CK3 #### [address] #### VD25H #### [facility] [address] [place] [address] Hemogram w/ Autodiffon 07-25 Erythrocyte distribution width Ratio (RBC) 13.6 % Normal 11.5-14.5 [facility] Comment on above: Performed By: #### H EMDF, PT, BMP3M, PHOS3, MG3, CK3 #### [address] #### VD25H #### [facility] [address] [place] [address] Hematocrit Volume Fraction (Bld) 31.3 % Low 40.0-52.0 [facility] Comment on above: Performed By: #### H EMDF, PT, BMP3M, PHOS3, MG3, CK3 #### [address] #### VD25H #### [facility] [address] [place] [address] Hemoglobin mass conc (Bld) 10.6 g/dL Low 13.0-18.0 [facility] Comment on above: Performed By: #### H EMDF, PT, BMP3M, PHOS3, MG3, CK3 #### [address] #### VD25H #### [facility] [address] [place] [address] MCH Entitic mass (RBC) 29.4 pg Normal 26.0-34.0 [facility] Comment on above: Performed By: #### H EMDF, PT, BMP3M, PHOS3, MG3, CK3 #### [address] [place], [place] #### VD25H #### [facility] [address] [place] [address] MCHC mass conc (RBC) 33.8 % Normal 32.0-36.0 [facility] Comment on above: Performed By: #### H EMDF, PT, BMP3M, PHOS3, MG3, CK3 #### [address] #### VD25H #### [facility] [address] [place] [address] MCV Entitic volume (RBC) 86.9 fL Normal 80.0-98.0 [facility] Comment on above: Performed By: #### H EMDF, PT, BMP3M, PHOS3, MG3, CK3 #### [address] #### VD25H #### [facility] [address] [place] [address] Platelet mean volume Entitic volume (Bld) 8.3 fL Normal 7.4-10.4 [facility] Comment on above: Performed By: #### H EMDF, PT, BMP3M, PHOS3, MG3, CK3 #### [address] #### VD25H #### [facility] [address] [place] [address] Platelets #/vol (Bld) 360 10*3/uL Normal 140-440 [facility] Comment on above: Performed By: #### H EMDF, PT, BMP3M, PHOS3, MG3, CK3 #### [address] #### VD25H #### [facility] [address] [place] [address] RBC #/vol (Bld) 3.61 10*6/uL Low 4.40-5.90 [facility] Comment on above: Performed By: #### H EMDF, PT, BMP3M, PHOS3, MG3, CK3 #### [facility] [address] [place] #### VD25H #### [facility] [address] [place] [address] WBC #/vol (Bld) 14.7 10*3/uL High 3.6-10.7 [facility] Comment on above: Performed By: #### H EMDF, PT, BMP3M, PHOS3, MG3, CK3 #### [address] #### VD25H #### [facility] [address] [place] [address] Magnesiumon 07-25-2018 Magnesium mass conc 2.1 mg/dL Normal 1.6-2.3 [facility] Comment on above: Performed By: #### H EMDF, PT, BMP3M, PHOS3, MG3, CK3 #### [address] #### VD25H #### [facility] [address] [place] [address] Manual Diffon 07-25-2018 Abs Baso Cnt 0.1 10*3/uL Normal 0.0-0.2 [facility] Comment on above: Performed By: #### H EMDF, PT, BMP3M, PHOS3, MG3, CK3 #### [address] [place], [place] #### VD25H #### [facility] [address] [place] [address] Abs Neutrophile Cnt 12.9 10*3/uL High 2.2-8.2 [facility] Comment on above: Performed By: #### H EMDF, PT, BMP3M, PHOS3, MG3, CK3 #### [address] #### VD25H #### [facility] [address] [place] [address] Anisocytosis Ql (Bld) Slight Normal [facility] Comment on above: Performed By: #### H EMDF, PT, BMP3M, PHOS3, MG3, CK3 #### [facility] [address] [facility], [place] #### VD25H #### [facility] [address] [place] [address] Bands 4 % High 0-3 [facility] Comment on above: Performed By: #### H EMDF, PT, BMP3M, PHOS3, MG3, CK3 #### [place] [address] [place], [place] #### VD25H #### [facility] [address] [place] [address] Basophils/100 WBC (Bld) 1 % Normal 0-2 [facility] Comment on above: Performed By: #### H EMDF, PT, BMP3M, PHOS3, MG3, CK3 #### [place] [address] [place], [place] #### VD25H #### [facility] [address] [place] [address] Eosinophils #/vol (Bld) 0.6 10*3/uL High 0.0-0.5 [facility] Comment on above: Performed By: #### H EMDF, PT, BMP3M, PHOS3, MG3, CK3 #### [facility] [address] [place] #### VD25H #### [facility] [address] [place] [address] Eosinophils/100 WBC (Bld) 4 % Normal 1-6 [facility] Comment on above: Performed By: #### H EMDF, PT, BMP3M, PHOS3, MG3, CK3 #### [facility] [address] [place] #### VD25H #### [facility] [address] [place] [address] Lymphocytes #/vol (Bld) 0.1 10*3/uL Low 1.1-4.5 [facility] Comment on above: Performed By: #### H EMDF, PT, BMP3M, PHOS3, MG3, CK3 #### [facility] [address] [place] #### VD25H #### [facility] [address] [place] [address] Lymphocytes/100 WBC (Bld) 1 % Low 20-40 [facility] Comment on above: Performed By: #### H EMDF, PT, BMP3M, PHOS3, MG3, CK3 #### [address] #### VD25H #### [facility] [address] [place] [address] Macrocytosis Slight Normal [facility] Comment on above: Performed By: #### H EMDF, PT, BMP3M, PHOS3, MG3, CK3 #### [address] #### VD25H #### [facility] [address] [place] [address] Metamyelocytes 2 % Abnormal <1 [facility] Comment on above: Performed By: #### H EMDF, PT, BMP3M, PHOS3, MG3, CK3 #### [place] [address] [place], [place] #### VD25H #### [facility] [address] [place] [address] Microcytosis Slight Normal [facility] Comment on above: Performed By: #### H EMDF, PT, BMP3M, PHOS3, MG3, CK3 #### [place] [address] [place] #### VD25H #### [facility] [address] [place] [address] Monocytes #/vol (Bld) 0.6 10*3/uL Normal 0.2-1.1 [facility] Comment on above: Performed By: #### H EMDF, PT, BMP3M, PHOS3, MG3, CK3 #### [facility] [address] [place] #### VD25H #### [facility] [address] [place] [address] Monocytes/100 WBC (Bld) 4 % Normal 2-10 [facility] Comment on above: Performed By: #### H EMDF, PT, BMP3M, PHOS3, MG3, CK3 #### [place] [address] [place], [place] #### VD25H #### [facility] [address] [place] [address] RBC morphology finding Nom (Bld) ABNORMAL Normal [facility] Comment on above: Performed By: #### H EMDF, PT, BMP3M, PHOS3, MG3, CK3 #### [place] [address] [place] #### VD25H #### [facility] [address] [place] [address] Seg Neutrophils 84 % High 40-80 [facility] Comment on above: Performed By: #### H EMDF, PT, BMP3M, PHOS3, MG3, CK3 #### [place] [place] #### VD25H #### [facility] [address] [place] [address] Cells counted 100 Normal [facility] Comment on above: Performed By: #### H EMDF, PT, BMP3M, PHOS3, MG3, CK3 #### [place] [address] [place] #### VD25H #### [facility] [address] [place] [address] Phosphoruson 07-25-2018 Phosphate mass conc 2.7 mg/dL Normal 2.5-4.5 [facility] Comment on above: Performed By: #### H EMDF, PT, BMP3M, PHOS3, MG3, CK3 #### [place] [address] [place] #### VD25H #### [facility] [address] [place] [address] Triglycerideon 07-25-2018 Triglyceride mass conc 82 mg/dL Normal <150 [facility] Comment on above: Performed By: #### H EMDF, PT, BMP3M, PHOS3, MG3, CK3 #### [address] [place] [place] #### VD25H #### [facility] [address] [place] [address] Basic Metabolic Panelon 06-30 Calcium mass conc 8.0 mg/dL Low 8.4-10.4 [facility] Comment on above: Performed By: #### H EMDF, PT, BMP3M, PHOS3, MG3, CK3 #### [place] [address] [place] #### VD25H #### [facility] [address] [place] [address] Anion gap molar conc 9 Normal [facility] Comment on above: Performed By: #### H EMDF, PT, BMP3M, PHOS3, MG3, CK3 #### [place] [address] [place] #### VD25H #### [facility] [address] [place] [address] CO2 molar conc 23 mmol/L Normal 22-30 [facility] Comment on above: Performed By: #### H EMDF, PT, BMP3M, PHOS3, MG3, CK3 #### [place] [address] [place] #### VD25H #### [facility] [address] [place] [address] Creatinine mass conc 0.71 mg/dL Normal 0.52-1.25 [facility] Comment on above: Performed By: #### H EMDF, PT, BMP3M, PHOS3, MG3, CK3 #### [facility] [address] [place] [address] #### VD25H #### [facility] [address] [place] [address] GFR/1.73 sq M predicted among blacks MDRD vol rate/area (S/P/Bld) mL/min/{1.73_m2} Normal >60 [facility] Comment on above: Performed By: #### H EMDF, PT, BMP3M, PHOS3, MG3, CK3 #### [address] [address] #### VD25H #### [facility] [address] [place] [address] GFR/1.73 sq M predicted among non-blacks MDRD vol rate/area (S/P/Bld) mL/min/{1.73_m2} Normal >60 [facility] Comment on above: Result Comment: Sour ce- MDRD equation with creatinine calibration to IDMS(NKDEP) eGFR not recommended for drug dose adjustment Performed By: #### H EMDF, PT, BMP3M, PHOS3, MG3, CK3 #### [address], [place] #### VD25H #### [facility] [address] [place] [address] Glucose mass conc 160 mg/dL High 70-100 [facility] Comment on above: Performed By: #### H EMDF, PT, BMP3M, PHOS3, MG3, CK3 #### [address], [place] #### VD25H #### [facility] [address] [facility] [place] [address] Urea nitrogen mass conc 28 mg/dL High 7-20 [facility] Comment on above: Performed By: #### H EMDF, PT, BMP3M, PHOS3, MG3, CK3 #### [address] #### VD25H #### [facility] [address] [place] [address] Chloride molar conc 109 mmol/L High 98-107 [facility] Comment on above: Performed By: #### H EMDF, PT, BMP3M, PHOS3, MG3, CK3 #### [facility] [address] [place] [address] #### VD25H #### [facility] [address] [place] [address] Potassium molar conc 3.7 mmol/L Normal 3.5-5.1 [facility] Comment on above: Performed By: #### H EMDF, PT, BMP3M, PHOS3, MG3, CK3 #### [facility] [address] [place] [address] #### VD25H #### [facility] [address] [place] [address] Sodium molar conc 141 mmol/L Normal 135-145 [facility] Comment on above: Performed By: #### H EMDF, PT, BMP3M, PHOS3, MG3, CK3 #### [facility] [address] [place] #### VD25H #### [facility] [address] [place] [address] CR Chest Portableon 07-25-19 19 CR Chest Portable Patient Name: KATHYA HOOPER Diagnostic Radiology Exam Date/Time 07/24/2018 13:12:47 EDT Exam CR Chest Portable Ordering Physician DO WOLFF KATHRYN C Accession Number [id number] CPT4 Codes 03442 () Reason For Exam line placement Report [...] Transcribed Date and Time: 07/24/2018 3:10 Normal [facility] CR Chest Portable Patient Name: KATHYA HOOPER Diagnostic Radiology Exam Date/Time 07/24/2018 07:11:26 EDT Exam CR Chest Portable Ordering Physician MARIA EUGENIA PEREZ Accession Number [id number] CPT4 Codes 26353 () Reason For Exam ETT placement Report [...] Transcribed Date and Time: 07/24/2018 7:31 Normal [facility] CULT./ST. RESPIRATORYon 06-30 CULT./ST. RESPIRATORY CULT./ST. RESPIRAT [...] 1 S Trimeth/Sulfa(CHRISTI) <= 20 S Normal [facility] Comment on above: Order Comment: Speci men Source Comment:Endotracheal Performed By: #### H EMDF, PT, BMP3M, PHOS3, MG3, CK3 #### [facility] [address] [place] [address] #### VD25H #### [facility] [address] [place] [address] CULTURE URINEon 07-24-2018 CULTURE URINE 1 Organism [...] 4 S Trimeth/Sulfa(CHRISTI) <= 20 S Normal [facility] Comment on above: Order Comment: Speci men Source Comment:Urine, clean catch Performed By: #### H EMDF, PT, BMP3M, PHOS3, MG3, CK3 #### [facility] [address] [place] [address] #### VD25H #### [facility] [address] [place] [address] Creatinine, Ur Randomon 03- Creatinine, Ur Random 49.5 mg/dL Normal No Range [facility] Comment on above: Performed By: #### H EMDF, PT, BMP3M, PHOS3, MG3, CK3 #### [facility] [address] [place], [place] #### VD25H #### [facility] [address] [place] [address] Glucose,Bedsideon 07-24-2018 Glucose mass conc 124 mg/dL High 70-100 [facility] Comment on above: Result Comment: Test performed by glucose meter. Results may be 10%-15% lower than serum/plasma values. (CLIA ID [id number]) Performed By: #### H EMDF, PT, BMP3M, PHOS3, MG3, CK3 #### [facility] [address] [place] [address] #### VD25H #### [facility] [address] [place] [address] Glucose mass conc 152 mg/dL High 70-100 [facility] Comment on above: Result Comment: Test performed by glucose meter. Results may be 10%-15% lower than serum/plasma values. (CLIA ID [id number]) Performed By: #### H EMDF, PT, BMP3M, PHOS3, MG3, CK3 #### [facility] [address] [place] [address] #### VD25H #### [facility] [address] [place] [address] Glucose mass conc 149 mg/dL High 70-100 [facility] Comment on above: Result Comment: Test performed by glucose meter. Results may be 10%-15% lower than serum/plasma values. (CLIA ID [id number]) Performed By: #### H EMDF, PT, BMP3M, PHOS3, MG3, CK3 #### [facility] [address] [place] [address] #### VD25H #### [facility] [address] [place] [address] Hemogram w/ Autodiffon 07-24 Erythrocyte distribution width Ratio (RBC) 13.7 % Normal 11.5-14.5 [facility] Comment on above: Performed By: #### H EMDF, PT, BMP3M, PHOS3, MG3, CK3 #### [address] [place], [place] #### VD25H #### [facility] [address] [place] [address] Hematocrit Volume Fraction (Bld) 31.4 % Low 40.0-52.0 [facility] Comment on above: Performed By: #### H EMDF, PT, BMP3M, PHOS3, MG3, CK3 #### [address] #### VD25H #### [facility] [address] [place] [address] Hemoglobin mass conc (Bld) 10.7 g/dL Low 13.0-18.0 [facility] Comment on above: Performed By: #### H EMDF, PT, BMP3M, PHOS3, MG3, CK3 #### [address] #### VD25H #### [facility] [address] [place] [address] MCH Entitic mass (RBC) 29.4 pg Normal 26.0-34.0 [facility] Comment on above: Performed By: #### H EMDF, PT, BMP3M, PHOS3, MG3, CK3 #### [address] #### VD25H #### [facility] [address] [place] [address] MCHC mass conc (RBC) 33.9 % Normal 32.0-36.0 [facility] Comment on above: Performed By: #### H EMDF, PT, BMP3M, PHOS3, MG3, CK3 #### [address] #### VD25H #### [facility] [address] [place] [address] MCV Entitic volume (RBC) 86.8 fL Normal 80.0-98.0 [facility] Comment on above: Performed By: #### H EMDF, PT, BMP3M, PHOS3, MG3, CK3 #### [address] [place], [place] #### VD25H #### [facility] [address] [place] [address] Platelet mean volume Entitic volume (Bld) 8.6 fL Normal 7.4-10.4 [facility] Comment on above: Performed By: #### H EMDF, PT, BMP3M, PHOS3, MG3, CK3 #### [address] #### VD25H #### [facility] [address] [place] [address] Platelets #/vol (Bld) 304 10*3/uL Normal 140-440 [facility] Comment on above: Performed By: #### H EMDF, PT, BMP3M, PHOS3, MG3, CK3 #### [address] #### VD25H #### [facility] [address] [place] [address] RBC #/vol (Bld) 3.62 10*6/uL Low 4.40-5.90 [facility] Comment on above: Performed By: #### H EMDF, PT, BMP3M, PHOS3, MG3, CK3 #### [address] #### VD25H #### [facility] [address] [place] [address] WBC #/vol (Bld) 14.0 10*3/uL High 3.6-10.7 [facility] Comment on above: Performed By: #### H EMDF, PT, BMP3M, PHOS3, MG3, CK3 #### [address] #### VD25H #### [facility] [address] [place] [address] Magnesiumon 03-26-2019 Magnesium mass conc 2.2 mg/dL Normal 1.6-2.3 [facility] Comment on above: Performed By: #### H EMDF, PT, BMP3M, PHOS3, MG3, CK3 #### [facility] [address] [place] #### VD25H #### [facility] [address] [place] [address] Manual Diffon 07-24-2018 Abs Baso Cnt 0.0 10*3/uL Normal 0.0-0.2 [facility] Comment on above: Performed By: #### H EMDF, PT, BMP3M, PHOS3, MG3, CK3 #### [address] #### VD25H #### [facility] [address] [place] [address] Abs Neutrophile Cnt 12.2 10*3/uL High 2.2-8.2 [facility] Comment on above: Performed By: #### H EMDF, PT, BMP3M, PHOS3, MG3, CK3 #### [address] #### VD25H #### [facility] [address] [place] [address] Eosinophils #/vol (Bld) 0.4 10*3/uL Normal 0.0-0.5 [facility] Comment on above: Performed By: #### H EMDF, PT, BMP3M, PHOS3, MG3, CK3 #### [address] #### VD25H #### [facility] [address] [place] [address] Eosinophils/100 WBC (Bld) 3 % Normal 1-6 [facility] Comment on above: Performed By: #### H EMDF, PT, BMP3M, PHOS3, MG3, CK3 #### [address] [address] #### VD25H #### [facility] [address] [place] [address] Lymphocytes #/vol (Bld) 1.0 10*3/uL Low 1.1-4.5 [facility] Comment on above: Performed By: #### H EMDF, PT, BMP3M, PHOS3, MG3, CK3 #### [place] [address] [place], [place] #### VD25H #### [facility] [address] [place] [address] Lymphocytes/100 WBC (Bld) 7 % Low 20-40 [facility] Comment on above: Performed By: #### H EMDF, PT, BMP3M, PHOS3, MG3, CK3 #### [address] [place], [place] #### VD25H #### [place] [address] [place] [address] Monocytes #/vol (Bld) 0.4 10*3/uL Normal 0.2-1.1 [facility] Comment on above: Performed By: #### H EMDF, PT, BMP3M, PHOS3, MG3, CK3 #### [address] #### VD25H #### [facility] [address] [place] [address] Monocytes/100 WBC (Bld) 3 % Normal 2-10 [facility] Comment on above: Performed By: #### H EMDF, PT, BMP3M, PHOS3, MG3, CK3 #### [address] [place], [place] #### VD25H #### [facility] [address] [place] [address] RBC morphology finding Nom (Bld) Normal Normal [facility] Comment on above: Performed By: #### H EMDF, PT, BMP3M, PHOS3, MG3, CK3 #### [address] #### VD25H #### [facility] [address] [place] [address] Seg Neutrophils 87 % High 40-80 [facility] Comment on above: Performed By: #### H EMDF, PT, BMP3M, PHOS3, MG3, CK3 #### [facility] [address] [place], [place] #### VD25H #### [facility] [address] [place] [address] Bands 0 % Normal 0-3 [facility] Comment on above: Performed By: #### H EMDF, PT, BMP3M, PHOS3, MG3, CK3 #### [place] [place] #### VD25H #### [facility] [address] [place] [address] Basophils/100 WBC (Bld) 0 % Normal 0-2 [facility] Comment on above: Performed By: #### H EMDF, PT, BMP3M, PHOS3, MG3, CK3 #### [address] [place], [place] #### VD25H #### [facility] [address] [place] [address] Cells counted 100 Normal [facility] Comment on above: Performed By: #### H EMDF, PT, BMP3M, PHOS3, MG3, CK3 #### [place] [address] [place], [place] #### VD25H #### [facility] [address] [place] [address] Phosphoruson 07-24-2018 Phosphate mass conc 2.7 mg/dL Normal 2.5-4.5 [facility] Comment on above: Performed By: #### H EMDF, PT, BMP3M, PHOS3, MG3, CK3 #### [place] [address] [place] #### VD25H #### [facility] [address] [place] [address] Triglycerideon 07-24-2018 Triglyceride mass conc 78 mg/dL Normal <150 [facility] Comment on above: Performed By: #### H EMDF, PT, BMP3M, PHOS3, MG3, CK3 #### [place] [address] [place] #### VD25H #### [facility] [address] [place] [address] Urea Nitrogen,Ur Randomon Urea nitrogen mass conc 1199 mg/dL Normal No Range [facility] Comment on above: Performed By: #### H EMDF, PT, BMP3M, PHOS3, MG3, CK3 #### [place] [address] [place] #### VD25H #### [facility] [address] [place] [address] Add on test from HISon 07-23 Add on test from HIS Accepted Normal [facility] Comment on above: Result Comment: Spec imen available & acceptable for analysis. Performed By: #### H EMDF, PT, BMP3M, PHOS3, MG3, CK3 #### [place] [address] [place], [place] #### VD25H #### [facility] [address] [place] [address] Arterial Blood Gaseson 07-23 CO2 molar conc 23.0 mmol/L Normal 23.0-27.0 [facility] Comment on above: Performed By: #### H EMDF, PT, BMP3M, PHOS3, MG3, CK3 #### [place] [address] [place] #### VD25H #### [facility] [address] [place] [address] HCO3 molar conc (Bld) 22.0 mmol/L Normal 21.0-25.0 [facility] Comment on above: Performed By: #### H EMDF, PT, BMP3M, PHOS3, MG3, CK3 #### [place] [address] [place] #### VD25H #### [facility] [address] [place] [address] Hemoglobin mass conc (Bld) 10.9 g/dL Normal [facility] Comment on above: Performed By: #### H EMDF, PT, BMP3M, PHOS3, MG3, CK3 #### [place] [address] [place] #### VD25H #### [facility] [address] [place] [address] Oxygen ppres (Bld) 102.4 mm[Hg] High 80.0-100.0 [facility] Comment on above: Performed By: #### H EMDF, PT, BMP3M, PHOS3, MG3, CK3 #### [address] [place], [place] #### VD25H #### [facility] [address] [place] [address] Oxygen saturation in Blood 97.7 % Normal 95.0-100.0 [facility] Comment on above: Performed By: #### H EMDF, PT, BMP3M, PHOS3, MG3, CK3 #### [address] [place], [place] #### VD25H #### [facility] [address] [place] [address] pCO2 34.4 mm[Hg] Low 35.0-45.0 [facility] Comment on above: Performed By: #### H EMDF, PT, BMP3M, PHOS3, MG3, CK3 #### [address] [place], [place] #### VD25H #### [facility] [address] [place] [address] pH (Bld) 7.423 Normal 7.350-7.450 [facility] Comment on above: Performed By: #### H EMDF, PT, BMP3M, PHOS3, MG3, CK3 #### [place] [address] [place] #### VD25H #### [facility] [address] [place] [address] Std Base Excess -1.9 mmol/L Normal -3.0-3.0 [facility] Comment on above: Performed By: #### H EMDF, PT, BMP3M, PHOS3, MG3, CK3 #### [place] [address] [place] [address] #### VD25H #### [facility] [address] [place] [address] FIO2 .30 Normal [facility] Comment on above: Performed By: #### H EMDF, PT, BMP3M, PHOS3, MG3, CK3 #### [place] [address] [address] [facility], [place] #### VD25H #### [facility] [address] [place] [address] Basic Metabolic Panelon - Anion gap molar conc 12 Normal [facility] Comment on above: Performed By: #### H EMDF, PT, BMP3M, PHOS3, MG3, CK3 #### [address], [place] #### VD25H #### [facility] [address] [place] [address] Calcium mass conc 7.5 mg/dL Low 8.4-10.4 [facility] Comment on above: Performed By: #### H EMDF, PT, BMP3M, PHOS3, MG3, CK3 #### [place] [address] [address] [facility] [place] #### VD25H #### [facility] [address] [place] [address] CO2 molar conc 23 mmol/L Normal 22-30 [facility] Comment on above: Performed By: #### H EMDF, PT, BMP3M, PHOS3, MG3, CK3 #### [address], [place] #### VD25H #### [facility] [address] [place] [address] Glucose mass conc 148 mg/dL High 70-100 [facility] Comment on above: Performed By: #### H EMDF, PT, BMP3M, PHOS3, MG3, CK3 #### [facility] [address] [place] [address] #### VD25H #### [facility] [address] [place] [address] Urea nitrogen mass conc 82 mg/dL High 7-20 [facility] Comment on above: Performed By: #### H EMDF, PT, BMP3M, PHOS3, MG3, CK3 #### [place] [address] [place] [address] #### VD25H #### [facility] [address] [place] [address] Creatinine mass conc 3.01 mg/dL High 0.52-1.25 [facility] Comment on above: Performed By: #### H EMDF, PT, BMP3M, PHOS3, MG3, CK3 #### [facility] [address] [place] [address] #### VD25H #### [facility] [address] [place] [address] GFR/1.73 sq M predicted among blacks MDRD vol rate/area (S/P/Bld) 25.8 mL/min/{1.73_m2} Normal >60 [facility] Comment on above: Performed By: #### H EMDF, PT, BMP3M, PHOS3, MG3, CK3 #### [address] [address] #### VD25H #### [facility] [address] [place] [address] GFR/1.73 sq M predicted among non-blacks MDRD vol rate/area (S/P/Bld) 21.3 mL/min/{1.73_m2} Normal >60 [facility] Comment on above: Result Comment: Sour ce- MDRD equation with creatinine calibration to IDMS(NKDEP) eGFR not recommended for drug dose adjustment Performed By: #### H EMDF, PT, BMP3M, PHOS3, MG3, CK3 #### [facility] [address] [place] [address] #### VD25H #### [facility] [address] [place] [address] Chloride molar conc 106 mmol/L Normal 98-107 [facility] Comment on above: Performed By: #### H EMDF, PT, BMP3M, PHOS3, MG3, CK3 #### [facility] [address] [place] [address] #### VD25H #### [facility] [address] [place] [address] Potassium molar conc 4.2 mmol/L Normal 3.5-5.1 [facility] Comment on above: Performed By: #### H EMDF, PT, BMP3M, PHOS3, MG3, CK3 #### [place] [address] [place], [place] #### VD25H #### [facility] [address] [place] [address] Sodium molar conc 141 mmol/L Normal 135-145 [facility] Comment on above: Performed By: #### H EMDF, PT, BMP3M, PHOS3, MG3, CK3 #### [place] [address] [place] [address] #### VD25H #### [facility] [address] [place] [address] CR Chest Portableon 07-24-19 19 CR Chest Portable Patient Name: KATHYA HOOPER Diagnostic Radiology Exam Date/Time 07/23/2018 07:06:03 EDT Exam CR Chest Portable Ordering Physician MARIA EUGENIA PEREZ Accession Number [id number] CPT4 Codes 68908 () Reason For Exam ETT placement Report [...] Transcribed Date and Time: 07/23/2018 7:58 Normal [facility] Creatinine, Ur Randomon 06-30 Creatinine, Ur Random 56.8 mg/dL Normal No Range [facility] Comment on above: Performed By: #### H EMDF, PT, BMP3M, PHOS3, MG3, CK3 #### [address] #### VD25H #### [facility] [address] [place] [address] Glucose,Bedsideon 07-23-2018 Glucose mass conc 116 mg/dL High 70-100 [facility] Comment on above: Result Comment: Test performed by glucose meter. Results may be 10%-15% lower than serum/plasma values. (CLIA ID [id number]) Performed By: #### H EMDF, PT, BMP3M, PHOS3, MG3, CK3 #### [address] #### VD25H #### [facility] [address] [place] [address] Glucose mass conc 139 mg/dL High 70-100 [email or web address] Comment on above: Result Comment: Test performed by glucose meter. Results may be 10%-15% lower than serum/plasma values. (CLIA ID [id number]) Performed By: #### H EMDF, PT, BMP3M, PHOS3, MG3, CK3 #### [facility] [address] #### VD25H #### [facility] [address] [place] [address] Glucose mass conc 140 mg/dL High 70-100 [facility] Comment on above: Result Comment: Test performed by glucose meter. Results may be 10%-15% lower than serum/plasma values. (CLIA ID [id number]) Performed By: #### H EMDF, PT, BMP3M, PHOS3, MG3, CK3 #### [address] #### VD25H #### [facility] [address] [facility] [place] [address] Glucose mass conc 140 mg/dL High 70-100 [facility] Comment on above: Result Comment: Test performed by glucose meter. Results may be 10%-15% lower than serum/plasma values. (CLIA ID [id number]) Performed By: #### H EMDF, PT, BMP3M, PHOS3, MG3, CK3 #### [address] #### VD25H #### [place] [address] [place] [address] Hemogram w/ Autodiffon 07-23 Abs Baso Cnt 0.0 10*3/uL Normal 0.0-0.2 [facility] Comment on above: Performed By: #### H EMDF, PT, BMP3M, PHOS3, MG3, CK3 #### [address] #### VD25H #### [facility] [address] [place] [address] Abs Neutrophile Cnt 16.2 10*3/uL High 1.8-7.0 [facility] Comment on above: Performed By: #### H EMDF, PT, BMP3M, PHOS3, MG3, CK3 #### [address] #### VD25H #### [facility] [address] [place] [address] Basophils/100 WBC (Bld) 0.3 % Normal 0.0-2.0 [facility] Comment on above: Performed By: #### H EMDF, PT, BMP3M, PHOS3, MG3, CK3 #### [facility] [address] [place], [place] #### VD25H #### [facility] [address] [place] [address] Eosinophils #/vol (Bld) 0.2 10*3/uL Normal 0.0-0.5 [facility] Comment on above: Performed By: #### H EMDF, PT, BMP3M, PHOS3, MG3, CK3 #### [address] #### VD25H #### [facility] [address] [place] [address] Eosinophils/100 WBC (Bld) 1.2 % Normal 1.0-6.0 [facility] Comment on above: Performed By: #### H EMDF, PT, BMP3M, PHOS3, MG3, CK3 #### [address] #### VD25H #### [facility] [address] [place] [address] Erythrocyte distribution width Ratio (RBC) 13.9 % Normal 11.5-14.5 [facility] Comment on above: Performed By: #### H EMDF, PT, BMP3M, PHOS3, MG3, CK3 #### [address] #### VD25H #### [facility] [address] [place] [address] Granulocytes/100 WBC (Bld) 86.8 % High 40.0-80.0 [facility] Comment on above: Performed By: #### H EMDF, PT, BMP3M, PHOS3, MG3, CK3 #### [address] #### VD25H #### [facility] [address] [place] [address] Hematocrit Volume Fraction (Bld) 26.7 % Low 40.0-52.0 [facility] Comment on above: Performed By: #### H EMDF, PT, BMP3M, PHOS3, MG3, CK3 #### [address] #### VD25H #### [facility] [address] [place] [address] Hemoglobin mass conc (Bld) 8.9 g/dL Low 13.0-18.0 [facility] Comment on above: Performed By: #### H EMDF, PT, BMP3M, PHOS3, MG3, CK3 #### [address] #### VD25H #### [place] [address] [place] [address] Lymphocytes #/vol (Bld) 1.2 10*3/uL Normal 1.0-4.3 [facility] Comment on above: Performed By: #### H EMDF, PT, BMP3M, PHOS3, MG3, CK3 #### [address] #### VD25H #### [place] [address] [place] [address] Lymphocytes/100 WBC (Bld) 6.6 % Low 20.0-40.0 [facility] Comment on above: Performed By: #### H EMDF, PT, BMP3M, PHOS3, MG3, CK3 #### [address] #### VD25H #### [facility] [address] [place] [address] MCH Entitic mass (RBC) 29.5 pg Normal 26.0-34.0 [facility] Comment on above: Performed By: #### H EMDF, PT, BMP3M, PHOS3, MG3, CK3 #### [address], [place] #### VD25H #### [facility] [address] [place] [address] MCHC mass conc (RBC) 33.5 % Normal 32.0-36.0 [facility] Comment on above: Performed By: #### H EMDF, PT, BMP3M, PHOS3, MG3, CK3 #### [address] #### VD25H #### [facility] [address] [place] [address] MCV Entitic volume (RBC) 87.9 fL Normal 80.0-98.0 [facility] Comment on above: Performed By: #### H EMDF, PT, BMP3M, PHOS3, MG3, CK3 #### [address] #### VD25H #### [facility] [address] [place] [address] Monocytes #/vol (Bld) 1.0 10*3/uL High 0.0-0.8 [facility] Comment on above: Performed By: #### H EMDF, PT, BMP3M, PHOS3, MG3, CK3 #### [address] #### VD25H #### [place] [address] [place] [address] Monocytes/100 WBC (Bld) 5.1 % Normal 2.0-10.0 [facility] Comment on above: Performed By: #### H EMDF, PT, BMP3M, PHOS3, MG3, CK3 #### [address] #### VD25H #### [facility] [address] [place] [address] Platelet mean volume Entitic volume (Bld) 8.2 fL Normal 7.4-10.4 [facility] Comment on above: Performed By: #### H EMDF, PT, BMP3M, PHOS3, MG3, CK3 #### [facility] [address] [place], [place] #### VD25H #### [facility] [address] [place] [address] Platelets #/vol (Bld) 294 10*3/uL Normal 140-440 [facility] Comment on above: Performed By: #### H EMDF, PT, BMP3M, PHOS3, MG3, CK3 #### [place] [address] [place], [place] #### VD25H #### [facility] [address] [place] [address] RBC #/vol (Bld) 3.03 10*6/uL Low 4.40-5.90 [facility] Comment on above: Performed By: #### H EMDF, PT, BMP3M, PHOS3, MG3, CK3 #### [place] [address] [place], [place] #### VD25H #### [facility] [address] [place] [address] WBC #/vol (Bld) 18.7 10*3/uL High 3.6-10.7 [facility] Comment on above: Performed By: #### H EMDF, PT, BMP3M, PHOS3, MG3, CK3 #### [place] [address] [place] #### VD25H #### [facility] [address] [place] [address] LDHon 07-23-2018 LDH 342 U/L High 65-175 [facility] Comment on above: Performed By: #### H EMDF, PT, BMP3M, PHOS3, MG3, CK3 #### [place] [address] [place] #### VD25H #### [facility] [address] [place] [address] Magnesiumon 07-23-2018 Magnesium mass conc 2.5 mg/dL High 1.6-2.3 [facility] Comment on above: Performed By: #### H EMDF, PT, BMP3M, PHOS3, MG3, CK3 #### [facility] [address] [place], [place] #### VD25H #### [facility] [address] [place] [address] Phosphoruson 07-23-2018 Phosphate mass conc 4.5 mg/dL Normal 2.5-4.5 [facility] Comment on above: Performed By: #### H EMDF, PT, BMP3M, PHOS3, MG3, CK3 #### [place] [address] [facility] [place] #### VD25H #### [facility] [address] [place] [address] Protein, Total Body Fluidon 07-23-2018 Protein,Total-Body Fld 2.7 g/dL Normal No Range [facility] Comment on above: Performed By: #### H EMDF, PT, BMP3M, PHOS3, MG3, CK3 #### [place] [address] [facility] [place] #### VD25H #### [facility] [address] [place] [address] Triglycerideon 07-23-2018 Triglyceride mass conc 63 mg/dL Normal <150 [facility] Comment on above: Performed By: #### H EMDF, PT, BMP3M, PHOS3, MG3, CK3 #### [facility] [address] [facility] [place] #### VD25H #### [facility] [address] [place] [address] Urea Nitrogen,Ur Randomon Urea nitrogen mass conc 677 mg/dL Normal No Range [facility] Comment on above: Performed By: #### H EMDF, PT, BMP3M, PHOS3, MG3, CK3 #### [place] [address] [facility] #### VD25H #### [facility] [address] [place] [address] Urinalysis,Macroon 9 Appearance Nom (U) cloudy Normal Clear [facility] Comment on above: Performed By: #### H EMDF, PT, BMP3M, PHOS3, MG3, CK3 #### [facility] [address] [place] #### VD25H #### [facility] [address] [place] [address] Bilirubin,Ur Negative Normal Negative [facility] Comment on above: Performed By: #### H EMDF, PT, BMP3M, PHOS3, MG3, CK3 #### [place] [address] [place] #### VD25H #### [facility] [address] [place] [address] Color Nom (U) dk.yel Normal Lt. Yellow [facility] Comment on above: Performed By: #### H EMDF, PT, BMP3M, PHOS3, MG3, CK3 #### [place] [address] [place] #### VD25H #### [facility] [address] [place] [address] Glucose Ql (U) NORM Normal Negative [facility] Comment on above: Performed By: #### H EMDF, PT, BMP3M, PHOS3, MG3, CK3 #### [address] #### VD25H #### [facility] [address] [place] [address] Ketone,Urine Negative Normal Negative [facility] Comment on above: Performed By: #### H EMDF, PT, BMP3M, PHOS3, MG3, CK3 #### [address] #### VD25H #### [facility] [address] [place] [address] Nitrite Ql (U) Negative Normal Negative [facility] Comment on above: Performed By: #### H EMDF, PT, BMP3M, PHOS3, MG3, CK3 #### [place] [address] [place] #### VD25H #### [facility] [address] [place] [address] Occult Blood,Ur 250 {RBC}/uL Normal Negative [facility] Comment on above: Performed By: #### H EMDF, PT, BMP3M, PHOS3, MG3, CK3 #### [place] [address] [place] #### VD25H #### [place] [address] [place] [address] pH (U) 5.0 Normal 5.0-8.0 [facility] Comment on above: Performed By: #### H EMDF, PT, BMP3M, PHOS3, MG3, CK3 #### [address] #### VD25H #### [place] [address] [place] [address] Protein mass conc (U) 75 mg/dL Normal Negative [facility] Comment on above: Performed By: #### H EMDF, PT, BMP3M, PHOS3, MG3, CK3 #### [address] [place], [place] #### VD25H #### [place] [address] [place] [address] Specific [place],Urine 1.015 Normal 1.005-1.030 [facility] Comment on above: Performed By: #### H EMDF, PT, BMP3M, PHOS3, MG3, CK3 #### [address] #### VD25H #### [place] [address] [place] [address] Urobilinogen Qn (U) NORM Normal 0-1 [facility] Comment on above: Performed By: #### H EMDF, PT, BMP3M, PHOS3, MG3, CK3 #### [address] [place] #### VD25H #### [facility] [address] [place] [address] WBC #/vol (Bld) 2 + Normal Negative [facility] Comment on above: Performed By: #### H EMDF, PT, BMP3M, PHOS3, MG3, CK3 #### [address] #### VD25H #### [facility] [address] [place] [address] Urinalysis,Microscopicon Bacteria LM.HPF #/area (Urine sed) Moderate (6-50) Normal Negative [facility] Comment on above: Performed By: #### H EMDF, PT, BMP3M, PHOS3, MG3, CK3 #### [address] #### VD25H #### [place] [address] [place] [address] Epithelial cells LM.HPF #/area (Urine sed) 0 - 2 Normal 3-5 [facility] Comment on above: Performed By: #### H EMDF, PT, BMP3M, PHOS3, MG3, CK3 #### [address] #### VD25H #### [place] [address] [place] [address] RBC LM.HPF #/area (Urine sed) /[HPF] Normal 0-2 [facility] Comment on above: Performed By: #### H EMDF, PT, BMP3M, PHOS3, MG3, CK3 #### [address] #### VD25H #### [facility] [address] [place] [address] Volume,Urine 8-12 ml Normal [facility] Comment on above: Performed By: #### H EMDF, PT, BMP3M, PHOS3, MG3, CK3 #### [address] [place] [address] #### VD25H #### [facility] [address] [place] [address] WBC LM.HPF #/area (Urine sed) 26 - 50 Normal 0-5 [facility] Comment on above: Performed By: #### H EMDF, PT, BMP3M, PHOS3, MG3, CK3 #### [facility] [address] [place] #### VD25H #### [facility] [address] [place] [address] VL Venous Duplex US Lower Ex t Bilateralon 07-23-2018 VL Venous Duplex US Lower Ext Bilateral Patient Name: KATHYA HOOPER Ultrasound Exam Date/Time 07/23/2018 11:16:11 EDT Exam VL Venous Duplex US Lower Ext Bilateral Ordering Physician ETIENNE MARTÍNEZ JULIE Accession Number [id number] CPT4 Codes 46274 () Reason For Exam edema Report [facility] --- Lower Extremity Venous Duplex Report Patient Name: Kathya Hooper : 1955 Study Date: 07/23/2018 [place] (63yrs) Age: 63 Account: [id number] Gender: M Loc: T209 BP: Ordering: Yesenia Martínez Technologist: Ordering Physician: Yesenia Martínez Dinkey Motor Operator: León Chaidez RVT, [facility] Interpreting Physician: Vamsi York MD --- Location: [facility] --- INDICATIONS: Edema. bilateral calf edema. [...] performed. The images were obtained using a [employer] E9 vascular ultrasound machine. --- VENOUS FLOW [...] --+ Electronically signed by: Vamsi York MD [id number] Final Dictated: 07/23/2018 3:00 pm Dictating Physician: VAMSI YORK Signed Date and Time: 07/23/2018 3:00 pm Signed by: VAMSI YORK Normal [facility] Vancomycin Troughon 07-24-19 19 Vancomycin Trough 10.8 ug/mL Low 15.0-20.0 [facility] Comment on above: Result Comment: . Performed By: #### H EMDF, PT, BMP3M, PHOS3, MG3, CK3 #### [place] [address] [address] [facility] [place] #### VD25H #### [facility] [address] [place] [address] Basic Metabolic Panelon 06-30 Calcium mass conc 7.9 mg/dL Low 8.4-10.4 [facility] Comment on above: Performed By: #### H EMDF, PT, BMP3M, PHOS3, MG3, CK3 #### [facility] [address] [facility] [place] #### VD25H #### [facility] [address] [place] [address] Anion gap molar conc 11 Normal [facility] Comment on above: Performed By: #### H EMDF, PT, BMP3M, PHOS3, MG3, CK3 #### [place] [address] [facility] [place] #### VD25H #### [facility] [address] [place] [address] CO2 molar conc 28 mmol/L Normal 22-30 [facility] Comment on above: Performed By: #### H EMDF, PT, BMP3M, PHOS3, MG3, CK3 #### [facility] [address] [facility] [place] #### VD25H #### [facility] [address] [place] [address] Glucose mass conc 134 mg/dL High 70-100 [facility] Comment on above: Performed By: #### H EMDF, PT, BMP3M, PHOS3, MG3, CK3 #### [address] [address] #### VD25H #### [facility] [address] [place] [address] Urea nitrogen mass conc 51 mg/dL High 7-20 [facility] Comment on above: Performed By: #### H EMDF, PT, BMP3M, PHOS3, MG3, CK3 #### [address] [address] #### VD25H #### [address] [place] [address] Creatinine mass conc 1.57 mg/dL High 0.52-1.25 [facility] Comment on above: Performed By: #### H EMDF, PT, BMP3M, PHOS3, MG3, CK3 #### [address] #### VD25H #### [address] [place] [address] GFR/1.73 sq M predicted among blacks MDRD vol rate/area (S/P/Bld) 54.6 mL/min/{1.73_m2} Normal >60 [facility] Comment on above: Performed By: #### H EMDF, PT, BMP3M, PHOS3, MG3, CK3 #### [address] #### VD25H #### [address] [place] [address] GFR/1.73 sq M predicted among non-blacks MDRD vol rate/area (S/P/Bld) 45.1 mL/min/{1.73_m2} Normal >60 [facility] Comment on above: Result Comment: Sour ce- MDRD equation with creatinine calibration to IDMS(NKDEP) eGFR not recommended for drug dose adjustment Performed By: #### H EMDF, PT, BMP3M, PHOS3, MG3, CK3 #### [address] [place] [address] #### VD25H #### [facility] [address] [place] [address] Chloride molar conc 107 mmol/L Normal 98-107 [facility] Comment on above: Performed By: #### H EMDF, PT, BMP3M, PHOS3, MG3, CK3 #### [facility] [address] [facility] [place] #### VD25H #### [facility] [address] [place] [address] Potassium molar conc 3.8 mmol/L Normal 3.5-5.1 [facility] Comment on above: Performed By: #### H EMDF, PT, BMP3M, PHOS3, MG3, CK3 #### [facility] [address] [facility] [place] #### VD25H #### [facility] [address] [place] [address] Sodium molar conc 146 mmol/L High 135-145 [facility] Comment on above: Performed By: #### H EMDF, PT, BMP3M, PHOS3, MG3, CK3 #### [facility] [address] [facility] [place] #### VD25H #### [facility] [address] [place] [address] CR Abdomen APon 07-22-2018 CR Abdomen AP Patient Name: KATHYA HOOPER Diagnostic Radiology Exam Date/Time 07/22/2018 08:02:02 EDT Exam CR Abdomen AP Ordering Physician MARIA EUGENIA PEREZ Accession Number [id number] CPT4 Codes 80102 () Reason For Exam ileus Report Supine [...] Transcribed Date and Time: 07/22/2018 9:28 Normal [facility] CR Chest Portableon 07-23-19 19 CR Chest Portable Patient Name: KATHYA HOOPER Diagnostic Radiology Exam Date/Time 07/22/2018 16:32:15 EDT Exam CR Chest Portable Ordering Physician MD NATE, [facility] Accession Number [id number] CPT4 Codes 54748 () Reason For Exam Thoracentesis Report Clinical [...] Transcribed Date and Time: 07/22/2018 6:46 Normal [facility] CR Chest Portable Patient Name: KATHYA HOOPER Diagnostic Radiology Exam Date/Time 07/22/2018 06:49:22 EDT Exam CR Chest Portable Ordering Physician MARIA EUGENIA PEREZ Accession Number [id number] CPT4 Codes 18503 () Reason For Exam ETT placement Report [...] Transcribed Date and Time: 07/22/2018 9:31 Normal [facility] CULTURE AND STAIN - FLUIDon 07-22-2018 CULTURE AND STAIN - FLUID CULTURE & STAIN - FLUID --> Status: F No growth at 5 days. STAIN GRAM --> Status: F Moderate polymorphonuclear cells/lpf. Moderate mononuclear cells/lpf No organisms seen. Cytocentrifugation performed. Moderate mononuclear cells/lpf No organisms seen. Cytocentrifugation performed. Normal [facility] Comment on above: Order Comment: Speci men Source Comment:Body Fluid Performed By: #### H EMDF, PT, BMP3M, PHOS3, MG3, CK3 #### [facility] [address] [place] [address] #### VD25H #### [facility] [address] [place] [address] Cell Count,Body Fluidon 06-30 Nucleated Cells 259 {cells}/uL Normal [facility] Comment on above: Performed By: #### H EMDF, PT, BMP3M, PHOS3, MG3, CK3 #### [place] [address] [address] [place], [place] #### VD25H #### [facility] [address] [place] [address] RBC Count Body Fld 123 {RBC}/uL Normal [facility] Comment on above: Performed By: #### H EMDF, PT, BMP3M, PHOS3, MG3, CK3 #### [place] [address] [place] #### VD25H #### [facility] [address] [place] [address] Fluid Type thoracentesis Normal [facility] Comment on above: Performed By: #### H EMDF, PT, BMP3M, PHOS3, MG3, CK3 #### [address] #### VD25H #### [facility] [address] [place] [address] Glucose, Body Fluidon 2018 Fluid Type Thoracentesis Normal [facility] Comment on above: Performed By: #### H EMDF, PT, BMP3M, PHOS3, MG3, CK3 #### [place] [address] [place] #### VD25H #### [facility] [address] [place] [address] Glucose, Body Fluid 136 mg/dL Normal No Range [facility] Comment on above: Performed By: #### H EMDF, PT, BMP3M, PHOS3, MG3, CK3 #### [place] [address] [place], [place] #### VD25H #### [facility] [address] [place] [address] Glucose,Bedsideon 07-22-2018 Glucose mass conc 142 mg/dL High 70-100 [facility] Comment on above: Result Comment: Test performed by glucose meter. Results may be 10%-15% lower than serum/plasma values. (CLIA ID [id number]) Performed By: #### H EMDF, PT, BMP3M, PHOS3, MG3, CK3 #### [facility] [address] [place], [place] #### VD25H #### [facility] [address] [place] [address] Glucose mass conc 127 mg/dL High 70-100 [facility] Comment on above: Result Comment: Test performed by glucose meter. Results may be 10%-15% lower than serum/plasma values. (CLIA ID [id number]) Performed By: #### H EMDF, PT, BMP3M, PHOS3, MG3, CK3 #### [facility] [address] [place] [address] #### VD25H #### [facility] [address] [place] [address] Glucose mass conc 139 mg/dL High 70-100 [facility] Comment on above: Result Comment: Test performed by glucose meter. Results may be 10%-15% lower than serum/plasma values. (CLIA ID [id number]) Performed By: #### H EMDF, PT, BMP3M, PHOS3, MG3, CK3 #### [facility] [address] [place] [address] #### VD25H #### [facility] [address] [place] [address] Glucose mass conc 124 mg/dL High 70-100 [facility] Comment on above: Result Comment: Test performed by glucose meter. Results may be 10%-15% lower than serum/plasma values. (CLIA ID [id number]) Performed By: #### H EMDF, PT, BMP3M, PHOS3, MG3, CK3 #### [facility] [address] [place] [address] #### VD25H #### [facility] [address] [place] [address] Glucose mass conc 128 mg/dL High 70-100 [facility] Comment on above: Result Comment: Test performed by glucose meter. Results may be 10%-15% lower than serum/plasma values. (CLIA ID [id number]) Performed By: #### H EMDF, PT, BMP3M, PHOS3, MG3, CK3 #### [facility] [address] [place], [place] #### VD25H #### [facility] [address] [place] [address] Glucose mass conc 113 mg/dL High 70-100 [facility] Comment on above: Result Comment: Test performed by glucose meter. Results may be 10%-15% lower than serum/plasma values. (CLIA ID [id number]) Performed By: #### H EMDF, PT, BMP3M, PHOS3, MG3, CK3 #### [address] #### VD25H #### [facility] [address] [place] [address] Hemogram w/ Autodiffon 07-22 Abs Baso Cnt 0.1 10*3/uL Normal 0.0-0.2 [facility] Comment on above: Performed By: #### H EMDF, PT, BMP3M, PHOS3, MG3, CK3 #### [address] #### VD25H #### [facility] [address] [place] [address] Abs Neutrophile Cnt 15.2 10*3/uL High 1.8-7.0 [facility] Comment on above: Performed By: #### H EMDF, PT, BMP3M, PHOS3, MG3, CK3 #### [address] #### VD25H #### [facility] [address] [place] [address] Basophils/100 WBC (Bld) 0.6 % Normal 0.0-2.0 [facility] Comment on above: Performed By: #### H EMDF, PT, BMP3M, PHOS3, MG3, CK3 #### [address] [place], [place] #### VD25H #### [facility] [address] [place] [address] Eosinophils #/vol (Bld) 0.2 10*3/uL Normal 0.0-0.5 [facility] Comment on above: Performed By: #### H EMDF, PT, BMP3M, PHOS3, MG3, CK3 #### [address] [place], [place] #### VD25H #### [facility] [address] [place] [address] Eosinophils/100 WBC (Bld) 0.9 % Low 1.0-6.0 [facility] Comment on above: Performed By: #### H EMDF, PT, BMP3M, PHOS3, MG3, CK3 #### [address] #### VD25H #### [facility] [address] [place] [address] Erythrocyte distribution width Ratio (RBC) 13.9 % Normal 11.5-14.5 [facility] Comment on above: Performed By: #### H EMDF, PT, BMP3M, PHOS3, MG3, CK3 #### [address] #### VD25H #### [facility] [address] [place] [address] Granulocytes/100 WBC (Bld) 88.8 % High 40.0-80.0 [facility] Comment on above: Performed By: #### H EMDF, PT, BMP3M, PHOS3, MG3, CK3 #### [address] #### VD25H #### [facility] [address] [place] [address] Hematocrit Volume Fraction (Bld) 31.6 % Low 40.0-52.0 [facility] Comment on above: Performed By: #### H EMDF, PT, BMP3M, PHOS3, MG3, CK3 #### [place] [place], [place] #### VD25H #### [facility] [address] [place] [address] Hemoglobin mass conc (Bld) 10.9 g/dL Low 13.0-18.0 [facility] Comment on above: Performed By: #### H EMDF, PT, BMP3M, PHOS3, MG3, CK3 #### [address] [place], [place] #### VD25H #### [facility] [address] [place] [address] Lymphocytes #/vol (Bld) 1.1 10*3/uL Normal 1.0-4.3 [facility] Comment on above: Performed By: #### H EMDF, PT, BMP3M, PHOS3, MG3, CK3 #### [address] #### VD25H #### [facility] [address] [place] [address] Lymphocytes/100 WBC (Bld) 6.2 % Low 20.0-40.0 [facility] Comment on above: Performed By: #### H EMDF, PT, BMP3M, PHOS3, MG3, CK3 #### [address] #### VD25H #### [facility] [address] [place] [address] MCH Entitic mass (RBC) 31.1 pg Normal 26.0-34.0 [facility] Comment on above: Performed By: #### H EMDF, PT, BMP3M, PHOS3, MG3, CK3 #### [address] #### VD25H #### [facility] [address] [place] [address] MCHC mass conc (RBC) 34.6 % Normal 32.0-36.0 [facility] Comment on above: Performed By: #### H EMDF, PT, BMP3M, PHOS3, MG3, CK3 #### [address] #### VD25H #### [facility] [address] [place] [address] MCV Entitic volume (RBC) 89.9 fL Normal 80.0-98.0 [facility] Comment on above: Performed By: #### H EMDF, PT, BMP3M, PHOS3, MG3, CK3 #### [address] #### VD25H #### [place] [address] [place] [address] Monocytes #/vol (Bld) 0.6 10*3/uL Normal 0.0-0.8 [facility] Comment on above: Performed By: #### H EMDF, PT, BMP3M, PHOS3, MG3, CK3 #### [address] #### VD25H #### [facility] [address] [place] [address] Monocytes/100 WBC (Bld) 3.5 % Normal 2.0-10.0 [facility] Comment on above: Performed By: #### H EMDF, PT, BMP3M, PHOS3, MG3, CK3 #### [address] #### VD25H #### [facility] [address] [place] [address] Platelet mean volume Entitic volume (Bld) 7.9 fL Normal 7.4-10.4 [facility] Comment on above: Performed By: #### H EMDF, PT, BMP3M, PHOS3, MG3, CK3 #### [address] #### VD25H #### [facility] [address] [place] [address] Platelets #/vol (Bld) 299 10*3/uL Normal 140-440 [facility] Comment on above: Performed By: #### H EMDF, PT, BMP3M, PHOS3, MG3, CK3 #### [facility] [address] [place], [place] #### VD25H #### [facility] [address] [place] [address] RBC #/vol (Bld) 3.52 10*6/uL Low 4.40-5.90 [facility] Comment on above: Performed By: #### H EMDF, PT, BMP3M, PHOS3, MG3, CK3 #### [address] #### VD25H #### [facility] [address] [place] [address] WBC #/vol (Bld) 17.1 10*3/uL High 3.6-10.7 [facility] Comment on above: Performed By: #### H EMDF, PT, BMP3M, PHOS3, MG3, CK3 #### [address] #### VD25H #### [facility] [address] [place] [address] LDH, Body Fluidon 07-22-2018 LDH, Body Fluid 232 U/L Normal No Range [facility] Comment on above: Performed By: #### H EMDF, PT, BMP3M, PHOS3, MG3, CK3 #### [address] #### VD25H #### [facility] [address] [place] [address] Magnesiumon 07-22-2018 Magnesium mass conc 2.6 mg/dL High 1.6-2.3 [facility] Comment on above: Performed By: #### H EMDF, PT, BMP3M, PHOS3, MG3, CK3 #### [address] #### VD25H #### [facility] [address] [place] [address] [facility] Cytology 9 Medical Cytology [facility] [id number] DEPARTMENT OF PATHOLOGY AND [facility] LABORATORY MEDICINE [address] [facility] [place] [address] FINAL MEDICAL CYTOLOGY REPORT NAME: KATHYA HOOPER : 1955 63 Y M BILLING NO.: [id number] LOCATION: [facility] T2 INPAT T209 PROCEDURE 07/22/2018 01 DATE: [...] . . . . . . 1 [facility] Screened by CYNDI LILLY M.D. The following statement applies to all immunohistochemistry, in situ hybridization, molecular studies, and immunofluorescence testing. The use of one or more reagents in the above tests is regulated as an analyte specific reagent (ASR). These tests were developed and their performance characteristics determined by the clinical laboratories of [facility]. They have not been cleared [...] negativity on decalcified specimens. Case reviewed at [facility] [address] [place] [address]. DEPARTMENT OF PATHOLOGY AND LABORATORY MEDICINE [place], [place] Normal [facility] Phosphoruson 07-22-2018 Phosphate mass conc 4.6 mg/dL High 2.5-4.5 [facility] Comment on above: Performed By: #### H EMDF, PT, BMP3M, PHOS3, MG3, CK3 #### [address] #### VD25H #### [facility] [address] [place] [address] Procalcitoninon 07-22-2018 Protein mass conc 0.27 ng/mL Abnormal <0.10 [facility] Comment on above: Result Comment: (Cor rect ref.range is <0.09 ng/mL) Test performed: [facility], [place], [place]. Performed By: #### H EMDF, PT, BMP3M, PHOS3, MG3, CK3 #### [address] [place] [address] [place], [place] #### VD25H #### [facility] [address] [place] [address] Interpretation See Below Normal [facility] Comment on above: Result Comment: PCT <0.50 = Low risk of severe sepsis and/or septic shock. PCT >2.00 = High risk of severe sepsis and/or septic shock. Performed By: #### H EMDF, PT, BMP3M, PHOS3, MG3, CK3 #### [address] #### VD25H #### [facility] [address] [place] [address] STAIN ACID-FASTon 07-22-2018 STAIN ACID-FAST STAIN ACID-FAST --> Status: F No acid-fast bacilli seen in smear. - Method: AFB by Kinyoun Stain - Method: AFB by Kinyoun Stain Normal [facility] Comment on above: Performed By: #### H EMDF, PT, BMP3M, PHOS3, MG3, CK3 #### [facility] [address] [place], [place] #### VD25H #### [facility] [address] [place] [address] Triglycerideon 07-22-2018 Triglyceride mass conc 96 mg/dL Normal <150 [facility] Comment on above: Performed By: #### H EMDF, PT, BMP3M, PHOS3, MG3, CK3 #### [facility] [address] [place], [place] #### VD25H #### [facility] [address] [place] [address] US Thora-Aspir Pleura w/ Evelin geon 07-22-2018 US Thora-Aspir Pleura w/ Image Patient Name: KATHYA HOOPER Ultrasound Exam Date/Time 07/22/2018 14:23:28 EDT Exam US Thora-Aspir Pleura w/ Image Ordering Physician MARIA EUGENIA PEREZ Accession Number [id number] CPT4 Codes 49903 () Reason For Exam L thoracentesis Report Reasons for examination: Left pleural effusion. Respiratory insufficiency. Ultrasound was performed of the left hemithorax, localizing the pleural fluid. After obtaining informed consent, sterile preparation, draping, and local anesthetic administration, thoracentesis was performed under direct ultrasonographic guidance with a 5 Thai Yueh needle/catheter. A total of 300 mL [...] Transcribed Date and Time: 07/22/2018 2:55 Normal [facility] pH,Misc Body Fluidon 019 pH,Misc 7.996 Normal None Available [facility] Comment on above: Performed By: #### H EMDF, PT, BMP3M, PHOS3, MG3, CK3 #### [facility] [address] [place] [address] #### VD25H #### [facility] [address] [place] [address] Arterial Blood Gaseson 07-21 CO2 molar conc 29.8 mmol/L High 23.0-27.0 [facility] Comment on above: Performed By: #### T SGL #### [facility] [address] [place] [address] HCO3 molar conc (Bld) 28.7 mmol/L High 21.0-25.0 [facility] Comment on above: Performed By: #### T SGL #### [address] [address] [place] [address] Hemoglobin mass conc (Bld) 11.7 g/dL Normal ScreenOnly [facility] Comment on above: Performed By: #### T SGL #### [facility] [address] [place] [address] Oxygen ppres (Bld) 144.9 mm[Hg] High 80.0-100.0 [facility] Comment on above: Performed By: #### T SGL #### [address] [place] [address] Oxygen saturation in Blood 98.4 % Normal 95.0-100.0 [facility] Comment on above: Performed By: #### T SGL #### [address] [place] [address] pCO2 36.8 mm[Hg] Normal 35.0-45.0 [facility] Comment on above: Performed By: #### T SGL #### [facility] [address] [facility] [place] [address] pH (Bld) 7.510 High 7.350-7.450 [facility] Comment on above: Performed By: #### T SGL #### [facility] [address] [place] [address] Std Base Excess 5.5 mmol/L High -3.0-3.0 [facility] Comment on above: Performed By: #### T SGL #### [facility] [address] [place] [address] FIO2 .50 Normal [facility] Comment on above: Performed By: #### T SGL #### [facility] [address] [place] [address] CR Abdomen APon 07-21-2018 CR Abdomen AP Patient Name: KATHYA HOOPER Diagnostic Radiology Exam Date/Time 07/21/2018 06:41:07 EDT Exam CR Abdomen AP Ordering Physician [id number] AGUILERA Accession Number [id number] CPT4 Codes 96062 () Reason For Exam ileus Report Reason [...] Transcribed Date and Time: 07/21/2018 7:23 Normal [facility] CR Chest Portableon 07-22-19 19 CR Chest Portable Patient Name: KATYHA HOOPER Diagnostic Radiology Exam Date/Time 07/21/2018 06:40:50 EDT Exam CR Chest Portable Ordering Physician MARIA EUGENIA PEREZ Accession Number [id number] CPT4 Codes 39547 () Reason For Exam ETT placement Report [...] as described above. Report Dictated on Workstation: [id number] Final Dictated: 07/21/2018 5:38 am Dictating Physician: MD BOLAÑOS NICHOLAS Signed Date and Time: 07/21/2018 5:40 am Signed by: MD BOLAÑOS NICHOLAS Transcribed Date and Time: 07/21/2018 5:38 Normal [facility] CR Chest Portable Patient Name: KATHYA HOOPER Diagnostic Radiology Exam Date/Time 07/21/2018 01:11:50 EDT Exam CR Chest Portable Ordering Physician MD GRIFFIN NICHOLAS Accession Number [id number] CPT4 Codes 28813 () Reason For Exam s/p bronch Report [...] Transcribed Date and Time: 07/21/2018 1:26 Normal [facility] Comp Metabolic Panelon 07-21 Calcium mass conc 7.9 mg/dL Low 8.4-10.4 [facility] Comment on above: Performed By: #### T SGL #### [facility] [address] [place] [address] ALP enzyme act/vol 85 U/L Normal 38-126 [facility] Comment on above: Performed By: #### T SGL #### [facility] [address] [place] [address] ALT enzyme act/vol 105 U/L High 13-69 [facility] Comment on above: Performed By: #### T SGL #### [facility] [address] [place] [address] Anion gap molar conc 8 Normal [facility] Comment on above: Performed By: #### T SGL #### [facility] [address] [place] [address] AST enzyme act/vol 78 U/L High 15-46 [facility] Comment on above: Performed By: #### T SGL #### [facility] [address] [place] [address] Bilirubin mass conc 1.1 mg/dL Normal 0.2-1.3 [facility] Comment on above: Performed By: #### T SGL #### [facility] [address] [place] [address] CO2 molar conc 33 mmol/L High 22-30 [facility] Comment on above: Performed By: #### T SGL #### [facility] [address] [place] [address] Creatinine mass conc 0.90 mg/dL Normal 0.52-1.25 [facility] Comment on above: Performed By: #### T SGL #### [facility] [address] [place] [address] GFR/1.73 sq M predicted among blacks MDRD vol rate/area (S/P/Bld) mL/min/{1.73_m2} Normal >60 [facility] Comment on above: Performed By: #### T SGL #### [address] [place] [address] GFR/1.73 sq M predicted among non-blacks MDRD vol rate/area (S/P/Bld) mL/min/{1.73_m2} Normal >60 [facility] Comment on above: Result Comment: Sour ce- MDRD equation with creatinine calibration to IDMS(NKDEP) eGFR not recommended for drug dose adjustment Performed By: #### T SGL #### [address] [place] [address] Glucose mass conc 113 mg/dL High 70-100 [facility] Comment on above: Performed By: #### T SGL #### [address] [place] [address] Protein mass conc 5.6 g/dL Low 6.3-8.2 [facility] Comment on above: Performed By: #### T SGL #### [address] [place] [address] Urea nitrogen mass conc 28 mg/dL High 7-20 [facility] Comment on above: Performed By: #### T SGL #### [address] [place] [address] Chloride molar conc 104 mmol/L Normal 98-107 [facility] Comment on above: Performed By: #### T SGL #### [address] [place] [address] Potassium molar conc 3.6 mmol/L Normal 3.5-5.1 [facility] Comment on above: Performed By: #### T SGL #### [address] [place] [address] Sodium molar conc 145 mmol/L Normal 135-145 [facility] Comment on above: Performed By: #### T SGL #### [facility] [address] [place] [address] Albumin mass conc 2.8 g/dL Low 3.5-5.0 [facility] Comment on above: Performed By: #### T SGL #### [facility] [address] [place] [address] Glucose,Bedsideon 07-21-2018 Glucose mass conc 124 mg/dL High 70-100 [facility] Comment on above: Result Comment: Test performed by glucose meter. Results may be 10%-15% lower than serum/plasma values. (CLIA ID [id number]) Performed By: #### H EMDF, PT, BMP3M, PHOS3, MG3, CK3 #### [facility] [address] [place] [id number] #### VD25H #### [facility] [address] [place] [address] Glucose mass conc 151 mg/dL High 70-100 [facility] Comment on above: Result Comment: Test performed by glucose meter. Results may be 10%-15% lower than serum/plasma values. (CLIA ID [id number]) Performed By: #### H EMDF, PT, BMP3M, PHOS3, MG3, CK3 #### [facility] [address] [place] [id number] #### VD25H #### [facility] [address] [place] [address] Glucose mass conc 127 mg/dL High 70-100 [facility] Comment on above: Result Comment: Test performed by glucose meter. Results may be 10%-15% lower than serum/plasma values. (CLIA ID [id number]) Performed By: #### T SGL #### [facility] [address] [place] [address] Glucose mass conc 113 mg/dL High 70-100 [facility] Comment on above: Result Comment: Test performed by glucose meter. Results may be 10%-15% lower than serum/plasma values. (CLIA ID [id number]) Performed By: #### A DDON #### [address] [place] [address] Hemogram w/ Autodiffon 07-21 Abs Baso Cnt 0.1 10*3/uL Normal 0.0-0.2 [facility] Comment on above: Performed By: #### T SGL #### [address] [place] [address] Abs Neutrophile Cnt 11.0 10*3/uL High 1.8-7.0 [facility] Comment on above: Performed By: #### T SGL #### [address] [place] [address] Basophils/100 WBC (Bld) 0.5 % Normal 0.0-2.0 [facility] Comment on above: Performed By: #### T SGL #### [address] [address] Eosinophils #/vol (Bld) 0.3 10*3/uL Normal 0.0-0.5 [facility] Comment on above: Performed By: #### T SGL #### [address] [address] Eosinophils/100 WBC (Bld) 1.9 % Normal 1.0-6.0 [facility] Comment on above: Performed By: #### T SGL #### [address] [address] Erythrocyte distribution width Ratio (RBC) 13.7 % Normal 11.5-14.5 [facility] Comment on above: Performed By: #### T SGL #### [address] [address] Granulocytes/100 WBC (Bld) 81.0 % High 40.0-80.0 [facility] Comment on above: Performed By: #### T SGL #### [address] [address] Hematocrit Volume Fraction (Bld) 32.1 % Low 40.0-52.0 [facility] Comment on above: Performed By: #### T SGL #### [address] [place] [address] Hemoglobin mass conc (Bld) 10.7 g/dL Low 13.0-18.0 [facility] Comment on above: Performed By: #### T SGL #### [address] [place] [address] Lymphocytes #/vol (Bld) 1.3 10*3/uL Normal 1.0-4.3 [facility] Comment on above: Performed By: #### T SGL #### [address] [place] [address] Lymphocytes/100 WBC (Bld) 9.8 % Low 20.0-40.0 [facility] Comment on above: Performed By: #### T SGL #### [address] [address] MCH Entitic mass (RBC) 29.0 pg Normal 26.0-34.0 [facility] Comment on above: Performed By: #### T SGL #### [address] [address] MCHC mass conc (RBC) 33.4 % Normal 32.0-36.0 [facility] Comment on above: Performed By: #### T SGL #### [address] [address] MCV Entitic volume (RBC) 86.9 fL Normal 80.0-98.0 [facility] Comment on above: Performed By: #### T SGL #### [address] [place] [address] Monocytes #/vol (Bld) 0.9 10*3/uL High 0.0-0.8 [facility] Comment on above: Performed By: #### T SGL #### [address] [address] Monocytes/100 WBC (Bld) 6.8 % Normal 2.0-10.0 [facility] Comment on above: Performed By: #### T SGL #### [address] [address] Platelet mean volume Entitic volume (Bld) 7.4 fL Normal 7.4-10.4 [facility] Comment on above: Performed By: #### T SGL #### [facility] [address] [place] [address] Platelets #/vol (Bld) 367 10*3/uL Normal 140-440 [facility] Comment on above: Performed By: #### T SGL #### [facility] [place] [place] [address] RBC #/vol (Bld) 3.69 10*6/uL Low 4.40-5.90 [facility] Comment on above: Performed By: #### T SGL #### [facility] [place] [place] [address] WBC #/vol (Bld) 13.6 10*3/uL High 3.6-10.7 [facility] Comment on above: Performed By: #### T SGL #### [facility] [place] [place] [address] Magnesiumon 07-21-2018 Magnesium mass conc 2.6 mg/dL High 1.6-2.3 [facility] Comment on above: Performed By: #### T SGL #### [facility] [address] [place] [address] Phosphoruson 07-21-2018 Phosphate mass conc 4.2 mg/dL Normal 2.5-4.5 [facility] Comment on above: Performed By: #### T SGL #### [facility] [address] [place] [address] Triglycerideon 07-21-2018 Triglyceride mass conc 105 mg/dL Normal <150 [facility] Comment on above: Performed By: #### T SGL #### [facility] [address] [place] [address] Add on test from HISon 07-20 Add on test from HIS Accepted Normal [facility] Comment on above: Result Comment: Spec imen available & acceptable for analysis. Performed By: #### A DDON #### [facility] [address] [place] [address] Basic Metabolic Panelon 06-30 Calcium mass conc 7.7 mg/dL Low 8.4-10.4 [facility] Comment on above: Performed By: #### A DDON #### [facility] [address] [place] [address] Glucose mass conc 96 mg/dL Normal 70-100 [facility] Comment on above: Performed By: #### A DDON #### [facility] [address] [place] [address] Urea nitrogen mass conc 22 mg/dL High 7-20 [facility] Comment on above: Performed By: #### A DDON #### [facility] [address] [place] [address] Anion gap molar conc 10 Normal [facility] Comment on above: Performed By: #### A DDON #### [facility] [address] [place] [address] CO2 molar conc 29 mmol/L Normal 22-30 [facility] Comment on above: Performed By: #### A DDON #### [address] [place] [address] Creatinine mass conc 0.87 mg/dL Normal 0.52-1.25 [facility] Comment on above: Performed By: #### A DDON #### [facility] [address] [place] [address] GFR/1.73 sq M predicted among blacks MDRD vol rate/area (S/P/Bld) mL/min/{1.73_m2} Normal >60 [facility] Comment on above: Performed By: #### A DDON #### [facility] [address] [place] [address] GFR/1.73 sq M predicted among non-blacks MDRD vol rate/area (S/P/Bld) mL/min/{1.73_m2} Normal >60 [facility] Comment on above: Result Comment: Sour ce- MDRD equation with creatinine calibration to IDMS(NKDEP) eGFR not recommended for drug dose adjustment Performed By: #### A DDON #### [facility] [address] [place] [address] Potassium molar conc 3.6 mmol/L Normal 3.5-5.1 [facility] Comment on above: Performed By: #### A DDON #### [facility] [address] [place] [address] Chloride molar conc 105 mmol/L Normal 98-107 [facility] Comment on above: Performed By: #### A DDON #### [facility] [address] [facility] [place] [address] Sodium molar conc 144 mmol/L Normal 135-145 [facility] Comment on above: Performed By: #### A DDON #### [facility] [address] [place] [address] CR Abdomen APon 07-20-2018 CR Abdomen AP Patient Name: KATHYA HOOPER Diagnostic Radiology Exam Date/Time 07/20/2018 08:39:45 EDT Exam CR Abdomen AP Ordering Physician JOYA ROJAS Accession Number [id number] CPT4 Codes 80629 () Reason For Exam ileus Report Clinical [...] Transcribed Date and Time: 07/20/2018 9:29 Normal [facility] CR Chest Portableon 07-21-19 19 CR Chest Portable Patient Name: KATHYA HOOPER Diagnostic Radiology Exam Date/Time 07/20/2018 08:39:26 EDT Exam CR Chest Portable Ordering Physician MARIA EUGENIA PEREZ Accession Number [id number] CPT4 Codes 83794 () Reason For Exam ETT placement Report [...] Transcribed Date and Time: 07/20/2018 9:28 Normal [facility] CT Abdomen/Pelvis w/ Contras ton 07-20-2018 CT Abdomen/Pelvis w/ Contrast Patient Name: KATHYA HOOPER CT Exam Date/Time 07/20/2018 11:30:[address] Abdomen/Pelvis w/ IV Contrast (IV Onl Ordering Physician [id number] [place] Accession Number [id number] CPT4 Codes 93668 (CT Abdomen/Pelvis w/ IV Contrast (IV Onl) [...] Transcribed Date and Time: 07/20/2018 1:10 Normal [facility] CT Chest w/ Contraston 07-20 CT Chest w/ Contrast Patient Name: KATHYA RAY CT Exam Date/Time 07/20/2018 11:30:[address] Chest w/ Contrast Ordering Physician Moses PERRYJOYA Accession Number [id number] CPT4 Codes 78557 (), Q9967 (CT ISOVUE 370MG/[id number]) Reason For Exam SOB, possible pneumonia Report [...] Time: 07/20/2018 1:34 pm Signed by: MD VAUGHN, ELIZABETH Transcribed Date and Time: 07/20/2018 1:28 Normal [facility] Glucose,Bedsideon 07-20-2018 Glucose mass conc 128 mg/dL High 70-100 [facility] Comment on above: Result Comment: Test performed by glucose meter. Results may be 10%-15% lower than serum/plasma values. (CLIA ID [id number]) Performed By: #### A DDON #### [address] [address] [place], [place] Hemogram w/ Autodiffon 07-20 Abs Baso Cnt 0.1 10*3/uL Normal 0.0-0.2 [facility] Comment on above: Performed By: #### H EMDF, PT, BMP3M, PHOS3, MG3, CK3 #### [address] #### VD25H #### [facility] [address] [place] [address] Abs Neutrophile Cnt 13.0 10*3/uL High 1.8-7.0 [facility] Comment on above: Performed By: #### H EMDF, PT, BMP3M, PHOS3, MG3, CK3 #### [address] #### VD25H #### [facility] [address] [place] [address] Basophils/100 WBC (Bld) 0.3 % Normal 0.0-2.0 [facility] Comment on above: Performed By: #### H EMDF, PT, BMP3M, PHOS3, MG3, CK3 #### [address] #### VD25H #### [facility] [address] [place] [address] Eosinophils #/vol (Bld) 0.3 10*3/uL Normal 0.0-0.5 [facility] Comment on above: Performed By: #### H EMDF, PT, BMP3M, PHOS3, MG3, CK3 #### [facility] [address] [place], [place] #### VD25H #### [facility] [address] [place] [address] Eosinophils/100 WBC (Bld) 1.9 % Normal 1.0-6.0 [facility] Comment on above: Performed By: #### H EMDF, PT, BMP3M, PHOS3, MG3, CK3 #### [address] [place], [place] #### VD25H #### [facility] [address] [place] [address] Erythrocyte distribution width Ratio (RBC) 13.3 % Normal 11.5-14.5 [facility] Comment on above: Performed By: #### H EMDF, PT, BMP3M, PHOS3, MG3, CK3 #### [address] #### VD25H #### [facility] [address] [place] [address] Granulocytes/100 WBC (Bld) 81.8 % High 40.0-80.0 [facility] Comment on above: Performed By: #### H EMDF, PT, BMP3M, PHOS3, MG3, CK3 #### [address] #### VD25H #### [facility] [address] [place] [address] Hematocrit Volume Fraction (Bld) 33.6 % Low 40.0-52.0 [facility] Comment on above: Performed By: #### H EMDF, PT, BMP3M, PHOS3, MG3, CK3 #### [address] #### VD25H #### [facility] [address] [place] [address] Hemoglobin mass conc (Bld) 11.4 g/dL Low 13.0-18.0 [facility] Comment on above: Performed By: #### H EMDF, PT, BMP3M, PHOS3, MG3, CK3 #### [address] [address] [address] [place], [place] #### VD25H #### [facility] [address] [place] [address] Lymphocytes #/vol (Bld) 1.5 10*3/uL Normal 1.0-4.3 [facility] Comment on above: Performed By: #### H EMDF, PT, BMP3M, PHOS3, MG3, CK3 #### [address] [address] [address] [place], [place] #### VD25H #### [facility] [address] [place] [address] Lymphocytes/100 WBC (Bld) 9.2 % Low 20.0-40.0 [facility] Comment on above: Performed By: #### H EMDF, PT, BMP3M, PHOS3, MG3, CK3 #### [address] [address] [address] [place], [place] #### VD25H #### [facility] [address] [place] [address] MCH Entitic mass (RBC) 29.3 pg Normal 26.0-34.0 [facility] Comment on above: Performed By: #### H EMDF, PT, BMP3M, PHOS3, MG3, CK3 #### [address] [address] [address] [place], [place] #### VD25H #### [facility] [address] [place] [address] MCHC mass conc (RBC) 33.9 % Normal 32.0-36.0 [facility] Comment on above: Performed By: #### H EMDF, PT, BMP3M, PHOS3, MG3, CK3 #### [address] [place], [place] #### VD25H #### [facility] [address] [place] [address] MCV Entitic volume (RBC) 86.5 fL Normal 80.0-98.0 [facility] Comment on above: Performed By: #### H EMDF, PT, BMP3M, PHOS3, MG3, CK3 #### [address] [address] [address] [place], [place] #### VD25H #### [facility] [address] [place] [address] Monocytes #/vol (Bld) 1.1 10*3/uL High 0.0-0.8 [facility] Comment on above: Performed By: #### H EMDF, PT, BMP3M, PHOS3, MG3, CK3 #### [address] #### VD25H #### [facility] [address] [place] [address] Monocytes/100 WBC (Bld) 6.8 % Normal 2.0-10.0 [facility] Comment on above: Performed By: #### H EMDF, PT, BMP3M, PHOS3, MG3, CK3 #### [address] #### VD25H #### [facility] [address] [place] [address] Platelet mean volume Entitic volume (Bld) 7.5 fL Normal 7.4-10.4 [facility] Comment on above: Performed By: #### H EMDF, PT, BMP3M, PHOS3, MG3, CK3 #### [address] [address] [address] [place], [place] #### VD25H #### [facility] [address] [place] [address] Platelets #/vol (Bld) 375 10*3/uL Normal 140-440 [facility] Comment on above: Performed By: #### H EMDF, PT, BMP3M, PHOS3, MG3, CK3 #### [address] #### VD25H #### [facility] [address] [place] [address] RBC #/vol (Bld) 3.88 10*6/uL Low 4.40-5.90 [facility] Comment on above: Performed By: #### H EMDF, PT, BMP3M, PHOS3, MG3, CK3 #### [facility] [address] [place], [place] #### VD25H #### [facility] [address] [place] [address] WBC #/vol (Bld) 15.9 10*3/uL High 3.6-10.7 [facility] Comment on above: Performed By: #### H EMDF, PT, BMP3M, PHOS3, MG3, CK3 #### [address] #### VD25H #### [facility] [address] [place] [address] Phosphoruson 07-20-2018 Phosphate mass conc 5.5 mg/dL High 2.5-4.5 [facility] Comment on above: Performed By: #### A DDON #### [address] Add on test from HISon 07-19 Add on test from HIS Accepted Normal [facility] Comment on above: Result Comment: Spec imen available & acceptable for analysis. Performed By: #### H EMDF, PT, BMP3M, PHOS3, MG3, CK3 #### [address] #### VD25H #### [facility] [address] [place] [address] Arterial Blood Gaseson 07-19 CO2 molar conc 31.5 mmol/L High 23.0-27.0 [facility] Comment on above: Performed By: #### H EMDF, PT, BMP3M, PHOS3, MG3, CK3 #### [address] #### VD25H #### [facility] [address] [place] [address] HCO3 molar conc (Bld) 30.2 mmol/L High 21.0-25.0 [facility] Comment on above: Performed By: #### H EMDF, PT, BMP3M, PHOS3, MG3, CK3 #### [address] [address] [address] [place], [place] #### VD25H #### [facility] [address] [place] [address] Hemoglobin mass conc (Bld) 11.7 g/dL Normal ScreenOnly [facility] Comment on above: Performed By: #### H EMDF, PT, BMP3M, PHOS3, MG3, CK3 #### [address] #### VD25H #### [facility] [address] [place] [address] Oxygen ppres (Bld) 85.1 mm[Hg] Normal 80.0-100.0 [facility] Comment on above: Performed By: #### H EMDF, PT, BMP3M, PHOS3, MG3, CK3 #### [address] #### VD25H #### [facility] [address] [place] [address] Oxygen saturation in Blood 95.9 % Normal 95.0-100.0 [facility] Comment on above: Performed By: #### H EMDF, PT, BMP3M, PHOS3, MG3, CK3 #### [address] #### VD25H #### [facility] [address] [place] [address] pCO2 43.6 mm[Hg] Normal 35.0-45.0 [facility] Comment on above: Performed By: #### H EMDF, PT, BMP3M, PHOS3, MG3, CK3 #### [address] #### VD25H #### [facility] [address] [place] [address] pH (Bld) 7.458 High 7.350-7.450 [facility] Comment on above: Performed By: #### H EMDF, PT, BMP3M, PHOS3, MG3, CK3 #### [facility] [address] [place], [place] #### VD25H #### [facility] [address] [place] [address] Std Base Excess 5.7 mmol/L High -3.0-3.0 [facility] Comment on above: Performed By: #### H EMDF, PT, BMP3M, PHOS3, MG3, CK3 #### [address] [address] [address] [place], [place] #### VD25H #### [facility] [address] [place] [address] FIO2 40% Normal [facility] Comment on above: Performed By: #### H EMDF, PT, BMP3M, PHOS3, MG3, CK3 #### [address] [address] [address] [place] #### VD25H #### [facility] [address] [place] [address] Basic Metabolic Panelon 03-2 Calcium mass conc 7.5 mg/dL Low 8.4-10.4 [facility] Comment on above: Performed By: #### H EMDF, PT, BMP3M, PHOS3, MG3, CK3 #### [facility] [address] [place] #### VD25H #### [facility] [address] [place] [address] Glucose mass conc 274 mg/dL High 70-100 [facility] Comment on above: Performed By: #### H EMDF, PT, BMP3M, PHOS3, MG3, CK3 #### [facility] [address] [place] #### VD25H #### [facility] [address] [place] [address] Anion gap molar conc 6 Normal [facility] Comment on above: Performed By: #### H EMDF, PT, BMP3M, PHOS3, MG3, CK3 #### [address] #### VD25H #### [facility] [address] [place] [address] CO2 molar conc 31 mmol/L High 22-30 [facility] Comment on above: Performed By: #### H EMDF, PT, BMP3M, PHOS3, MG3, CK3 #### [address] #### VD25H #### [facility] [address] [place] [address] Creatinine mass conc 0.64 mg/dL Normal 0.52-1.25 [facility] Comment on above: Performed By: #### H EMDF, PT, BMP3M, PHOS3, MG3, CK3 #### [address] #### VD25H #### [facility] [address] [place] [address] GFR/1.73 sq M predicted among blacks MDRD vol rate/area (S/P/Bld) mL/min/{1.73_m2} Normal >60 [facility] Comment on above: Performed By: #### H EMDF, PT, BMP3M, PHOS3, MG3, CK3 #### [address] #### VD25H #### [facility] [address] [place] [address] GFR/1.73 sq M predicted among non-blacks MDRD vol rate/area (S/P/Bld) mL/min/{1.73_m2} Normal >60 [facility] Comment on above: Result Comment: Sour ce- MDRD equation with creatinine calibration to IDMS(NKDEP) eGFR not recommended for drug dose adjustment Performed By: #### H EMDF, PT, BMP3M, PHOS3, MG3, CK3 #### [facility] [address], [place] #### VD25H #### [facility] [address] [place] [address] Urea nitrogen mass conc 15 mg/dL Normal 7-20 [facility] Comment on above: Performed By: #### H EMDF, PT, BMP3M, PHOS3, MG3, CK3 #### [facility] [address] [facility], [place] #### VD25H #### [facility] [address] [place] [address] Chloride molar conc 105 mmol/L Normal 98-107 [facility] Comment on above: Performed By: #### H EMDF, PT, BMP3M, PHOS3, MG3, CK3 #### [address] [address] [address] [facility], [place] #### VD25H #### [facility] [address] [place] [address] Potassium molar conc 4.3 mmol/L Normal 3.5-5.1 [facility] Comment on above: Performed By: #### H EMDF, PT, BMP3M, PHOS3, MG3, CK3 #### [facility] [address] #### VD25H #### [facility] [address] [place] [address] Sodium molar conc 141 mmol/L Normal 135-145 [facility] Comment on above: Performed By: #### H EMDF, PT, BMP3M, PHOS3, MG3, CK3 #### [address] [address] [address] [facility] [place] #### VD25H #### [facility] [address] [place] [address] CR Abdomen APon 07-19-2018 CR Abdomen AP Patient Name: KATHYA HOOPER Diagnostic Radiology Exam Date/Time 07/19/2018 06:44:12 EDT Exam CR Abdomen AP Ordering Physician [id number] -SHIRLEYJOYA Malave Accession Number [id number] CPT4 Codes 25520 () Reason For Exam ileus Report Abdomen: [...] Transcribed Date and Time: 07/19/2018 7:46 Normal [facility] CR Chest Portableon 07-20-19 19 CR Chest Portable Patient Name: KATHYA HOOPER Diagnostic Radiology Exam Date/Time 07/19/2018 06:43:52 EDT Exam CR Chest Portable Ordering Physician MARIA EUGENIA PEREZ Accession Number [id number] CPT4 Codes 71332 () Reason For Exam ETT placement Report [...] Transcribed Date and Time: 07/19/2018 7:44 Normal [facility] Glucose,Bedsideon 07-19-2018 Glucose mass conc 95 mg/dL Normal 70-100 [facility] Comment on above: Result Comment: Test performed by glucose meter. Results may be 10%-15% lower than serum/plasma values. (CLIA ID [id number]) Performed By: #### H EMDF, PT, BMP3M, PHOS3, MG3, CK3 #### [address] #### VD25H #### [facility] [address] [place] [address] Hemogram w/ Autodiffon 07-19 Abs Baso Cnt 0.1 10*3/uL Normal 0.0-0.2 [facility] Comment on above: Performed By: #### H EMDF, PT, BMP3M, PHOS3, MG3, CK3 #### [address] #### VD25H #### [facility] [address] [place] [address] Abs Neutrophile Cnt 9.8 10*3/uL High 1.8-7.0 [facility] Comment on above: Performed By: #### H EMDF, PT, BMP3M, PHOS3, MG3, CK3 #### [address] #### VD25H #### [facility] [address] [place] [address] Basophils/100 WBC (Bld) 0.5 % Normal 0.0-2.0 [facility] Comment on above: Performed By: #### H EMDF, PT, BMP3M, PHOS3, MG3, CK3 #### [address] #### VD25H #### [facility] [address] [place] [address] Eosinophils #/vol (Bld) 0.3 10*3/uL Normal 0.0-0.5 [facility] Comment on above: Performed By: #### H EMDF, PT, BMP3M, PHOS3, MG3, CK3 #### [address] #### VD25H #### [facility] [address] [place] [address] Eosinophils/100 WBC (Bld) 2.5 % Normal 1.0-6.0 [facility] Comment on above: Performed By: #### H EMDF, PT, BMP3M, PHOS3, MG3, CK3 #### [facility] [address] [place], [place] #### VD25H #### [facility] [address] [place] [address] Erythrocyte distribution width Ratio (RBC) 13.3 % Normal 11.5-14.5 [facility] Comment on above: Performed By: #### H EMDF, PT, BMP3M, PHOS3, MG3, CK3 #### [address] [address] [place], [place] #### VD25H #### [facility] [address] [place] [address] Granulocytes/100 WBC (Bld) 80.4 % High 40.0-80.0 [facility] Comment on above: Performed By: #### H EMDF, PT, BMP3M, PHOS3, MG3, CK3 #### [address] [address] [address] [place], [place] #### VD25H #### [facility] [address] [place] [address] Hematocrit Volume Fraction (Bld) 30.6 % Low 40.0-52.0 [facility] Comment on above: Performed By: #### H EMDF, PT, BMP3M, PHOS3, MG3, CK3 #### [address] [place], [place] #### VD25H #### [facility] [address] [place] [address] Hemoglobin mass conc (Bld) 10.5 g/dL Low 13.0-18.0 [facility] Comment on above: Performed By: #### H EMDF, PT, BMP3M, PHOS3, MG3, CK3 #### [address] [place], [place] #### VD25H #### [facility] [address] [place] [address] Lymphocytes #/vol (Bld) 1.1 10*3/uL Normal 1.0-4.3 [facility] Comment on above: Performed By: #### H EMDF, PT, BMP3M, PHOS3, MG3, CK3 #### [address] [place], [place] #### VD25H #### [facility] [address] [place] [address] Lymphocytes/100 WBC (Bld) 9.1 % Low 20.0-40.0 [facility] Comment on above: Performed By: #### H EMDF, PT, BMP3M, PHOS3, MG3, CK3 #### [address] #### VD25H #### [facility] [address] [place] [address] MCH Entitic mass (RBC) 29.7 pg Normal 26.0-34.0 [facility] Comment on above: Performed By: #### H EMDF, PT, BMP3M, PHOS3, MG3, CK3 #### [address] #### VD25H #### [facility] [address] [place] [address] MCHC mass conc (RBC) 34.3 % Normal 32.0-36.0 [facility] Comment on above: Performed By: #### H EMDF, PT, BMP3M, PHOS3, MG3, CK3 #### [address] #### VD25H #### [facility] [address] [place] [address] MCV Entitic volume (RBC) 86.7 fL Normal 80.0-98.0 [facility] Comment on above: Performed By: #### H EMDF, PT, BMP3M, PHOS3, MG3, CK3 #### [address] [address] [address] [place], [place] #### VD25H #### [facility] [address] [place] [address] Monocytes #/vol (Bld) 0.9 10*3/uL High 0.0-0.8 [facility] Comment on above: Performed By: #### H EMDF, PT, BMP3M, PHOS3, MG3, CK3 #### [address] [address] [address] [place] #### VD25H #### [facility] [address] [place] [address] Monocytes/100 WBC (Bld) 7.5 % Normal 2.0-10.0 [facility] Comment on above: Performed By: #### H EMDF, PT, BMP3M, PHOS3, MG3, CK3 #### [address] #### VD25H #### [facility] [address] [place] [address] Platelet mean volume Entitic volume (Bld) 7.3 fL Low 7.4-10.4 [facility] Comment on above: Performed By: #### H EMDF, PT, BMP3M, PHOS3, MG3, CK3 #### [address] #### VD25H #### [facility] [address] [place] [address] Platelets #/vol (Bld) 329 10*3/uL Normal 140-440 [facility] Comment on above: Performed By: #### H EMDF, PT, BMP3M, PHOS3, MG3, CK3 #### [address] #### VD25H #### [facility] [address] [place] [address] RBC #/vol (Bld) 3.53 10*6/uL Low 4.40-5.90 [facility] Comment on above: Performed By: #### H EMDF, PT, BMP3M, PHOS3, MG3, CK3 #### [address] #### VD25H #### [facility] [address] [place] [address] WBC #/vol (Bld) 12.2 10*3/uL High 3.6-10.7 [facility] Comment on above: Performed By: #### H EMDF, PT, BMP3M, PHOS3, MG3, CK3 #### [address] #### VD25H #### [facility] [address] [place] [address] Magnesiumon 07-19-2018 Magnesium mass conc 2.3 mg/dL Normal 1.6-2.3 [facility] Comment on above: Performed By: #### H EMDF, PT, BMP3M, PHOS3, MG3, CK3 #### [address] #### VD25H #### [facility] [address] [place] [address] Procalcitoninon 07-19-2018 Protein mass conc 0.15 ng/mL Abnormal <0.10 [facility] Comment on above: Performed By: #### H EMDF, PT, BMP3M, PHOS3, MG3, CK3 #### [address] #### VD25H #### [facility] [address] [place] [address] Interpretation See Below Normal [facility] Comment on above: Result Comment: PCT <0.50 = Low risk of severe sepsis and/or septic shock. PCT >2.00 = High risk of severe sepsis and/or septic shock. Performed By: #### H EMDF, PT, BMP3M, PHOS3, MG3, CK3 #### [address] #### VD25H #### [facility] [address] [place] [address] VL Venous Duplex US Lower Ex t Bilateralon 07-19-2018 VL Venous Duplex US Lower Ext Bilateral Patient Name: KATHYA HOOPER Ultrasound Exam Date/Time 07/19/2018 11:10:14 EDT Exam VL Venous Duplex US Lower Ext Bilateral Ordering Physician ETIENNE MARTÍNEZ JULIE Accession Number [id number] CPT4 Codes 47303 () Reason For Exam edema Report [facility] --- Lower Extremity Venous Duplex Report Patient Name: Kathya Hooper : 1955 Study Date: 07/19/2018 W (63yrs) Age: 63 Account: [id number] Gender: M Loc: [id number] BP: Ordering: Yesenia Martínez Technologist: Ordering Physician: Yesenia Martínez Dinkey Motor Operator: León Chaidez RVT, [facility] Interpreting Physician: Ricardo Hall MD --- Location: [facility] --- INDICATIONS: Edema. bilateral calf edema. [...] performed. The images were obtained using a [employer] E9 vascular ultrasound machine. --- VENOUS FLOW [...] --+ Electronically signed by: Ricardo Hall MD [id number] Final Dictated: 07/20/2018 10:49 am Dictating Physician: RICARDO HALL Signed Date and Time: 07/19/2018 11:03 am Signed by: RICARDO HALL [place] JO[place] Basic Metabolic Panelon 06-30 Calcium mass conc 7.9 mg/dL Low 8.4-10.4 [facility] [employer] [facility] Comment on above: Performed By: #### H EMDF, PT, BMP3M, PHOS3, MG3, CK3 #### [facility] [address] [place] [address] #### VD25H #### [facility] [address] [place] [address] Glucose mass conc 113 mg/dL High 70-100 [facility] Comment on above: Performed By: #### H EMDF, PT, BMP3M, PHOS3, MG3, CK3 #### [address] [address] [address] [place], [place] #### VD25H #### [facility] [address] [place] [address] Anion gap molar conc 7 Normal [facility] Comment on above: Performed By: #### H EMDF, PT, BMP3M, PHOS3, MG3, CK3 #### [address] #### VD25H #### [facility] [address] [place] [address] CO2 molar conc 31 mmol/L High 22-30 [facility] Comment on above: Performed By: #### H EMDF, PT, BMP3M, PHOS3, MG3, CK3 #### [address] [address] [address] [place], [place] #### VD25H #### [facility] [address] [place] [address] Creatinine mass conc 0.59 mg/dL Normal 0.52-1.25 [facility] Comment on above: Performed By: #### H EMDF, PT, BMP3M, PHOS3, MG3, CK3 #### [address] [address] [place], [place] #### VD25H #### [facility] [address] [place] [address] GFR/1.73 sq M predicted among blacks MDRD vol rate/area (S/P/Bld) mL/min/{1.73_m2} Normal >60 [facility] Comment on above: Performed By: #### H EMDF, PT, BMP3M, PHOS3, MG3, CK3 #### [address] [address] [address] [place], [place] #### VD25H #### [facility] [address] [place] [address] GFR/1.73 sq M predicted among non-blacks MDRD vol rate/area (S/P/Bld) mL/min/{1.73_m2} Normal >60 [facility] Comment on above: Result Comment: Sour ce- MDRD equation with creatinine calibration to IDMS(NKDEP) eGFR not recommended for drug dose adjustment Performed By: #### H EMDF, PT, BMP3M, PHOS3, MG3, CK3 #### [address] [place], [place] #### VD25H #### [facility] [address] [place] [address] Urea nitrogen mass conc 19 mg/dL Normal 7-20 [facility] Comment on above: Performed By: #### H EMDF, PT, BMP3M, PHOS3, MG3, CK3 #### [address] [address] [address] [place], [place] #### VD25H #### [facility] [address] [place] [address] Chloride molar conc 104 mmol/L Normal 98-107 [facility] Comment on above: Performed By: #### H EMDF, PT, BMP3M, PHOS3, MG3, CK3 #### [address] [place] [address] [address] [place], [place] #### VD25H #### [facility] [address] [place] [address] Potassium molar conc 3.4 mmol/L Low 3.5-5.1 [facility] Comment on above: Performed By: #### H EMDF, PT, BMP3M, PHOS3, MG3, CK3 #### [address] [address] [place], [place] #### VD25H #### [facility] [address] [place] [address] Sodium molar conc 142 mmol/L Normal 135-145 [facility] [employer] [facility] Comment on above: Performed By: #### H EMDF, PT, BMP3M, PHOS3, MG3, CK3 #### [facility] [address] [facility] [place] [address] #### VD25H #### [facility] [address] [place] [address] CR Abdomen APon 07-18-2018 CR Abdomen AP Patient Name: KATHYA HOOPER Diagnostic Radiology Exam Date/Time 07/18/2018 06:52:18 EDT Exam CR Abdomen AP Ordering Physician JOYA ROJAS Accession Number [id number] CPT4 Codes 01449 () Reason For Exam ileus Report CLINICAL [...] Transcribed Date and Time: 07/18/2018 2:33 Normal [facility] CR Chest Portableon 07-19-19 19 CR Chest Portable Patient Name: KATHYA HOOPER Diagnostic Radiology Exam Date/Time 07/18/2018 06:52:50 EDT Exam CR Chest Portable Ordering Physician MARIA EUGENIA PEREZ Accession Number [id number] CPT4 Codes 83398 () Reason For Exam ETT placement Report [...] Transcribed Date and Time: 07/18/2018 2:32 Normal [facility] Hemogram w/ Autodiffon 07-18 Abs Baso Cnt 0.0 10*3/uL Normal 0.0-0.2 [facility] Comment on above: Performed By: #### H EMDF, PT, BMP3M, PHOS3, MG3, CK3 #### [facility] [address] [place], [place] #### VD25H #### [facility] [address] [place] [address] Abs Neutrophile Cnt 8.6 10*3/uL High 1.8-7.0 [facility] Comment on above: Performed By: #### H EMDF, PT, BMP3M, PHOS3, MG3, CK3 #### [facility] [address] [place], [place] #### VD25H #### [facility] [address] [place] [address] Basophils/100 WBC (Bld) 0.4 % Normal 0.0-2.0 [facility] Comment on above: Performed By: #### H EMDF, PT, BMP3M, PHOS3, MG3, CK3 #### [address] [place], [place] #### VD25H #### [facility] [address] [place] [address] Eosinophils #/vol (Bld) 0.2 10*3/uL Normal 0.0-0.5 [facility] Comment on above: Performed By: #### H EMDF, PT, BMP3M, PHOS3, MG3, CK3 #### [address] #### VD25H #### [facility] [address] [place] [address] Eosinophils/100 WBC (Bld) 2.1 % Normal 1.0-6.0 [facility] Comment on above: Performed By: #### H EMDF, PT, BMP3M, PHOS3, MG3, CK3 #### [address] #### VD25H #### [facility] [address] [place] [address] Erythrocyte distribution width Ratio (RBC) 13.4 % Normal 11.5-14.5 [facility] Comment on above: Performed By: #### H EMDF, PT, BMP3M, PHOS3, MG3, CK3 #### [address] #### VD25H #### [facility] [address] [place] [address] Granulocytes/100 WBC (Bld) 80.0 % Normal 40.0-80.0 [facility] Comment on above: Performed By: #### H EMDF, PT, BMP3M, PHOS3, MG3, CK3 #### [address] #### VD25H #### [facility] [address] [place] [address] Hematocrit Volume Fraction (Bld) 37.3 % Low 40.0-52.0 [facility] Comment on above: Performed By: #### H EMDF, PT, BMP3M, PHOS3, MG3, CK3 #### [address] #### VD25H #### [facility] [address] [place] [address] Hemoglobin mass conc (Bld) 12.6 g/dL Low 13.0-18.0 [facility] Comment on above: Performed By: #### H EMDF, PT, BMP3M, PHOS3, MG3, CK3 #### [address] #### VD25H #### [facility] [address] [place] [address] Lymphocytes #/vol (Bld) 1.1 10*3/uL Normal 1.0-4.3 [facility] Comment on above: Performed By: #### H EMDF, PT, BMP3M, PHOS3, MG3, CK3 #### [address] #### VD25H #### [facility] [address] [place] [address] Lymphocytes/100 WBC (Bld) 10.3 % Low 20.0-40.0 [facility] Comment on above: Performed By: #### H EMDF, PT, BMP3M, PHOS3, MG3, CK3 #### [address] #### VD25H #### [facility] [address] [place] [address] MCH Entitic mass (RBC) 29.4 pg Normal 26.0-34.0 [facility] Comment on above: Performed By: #### H EMDF, PT, BMP3M, PHOS3, MG3, CK3 #### [address] #### VD25H #### [facility] [address] [place] [address] MCHC mass conc (RBC) 33.9 % Normal 32.0-36.0 [facility] Comment on above: Performed By: #### H EMDF, PT, BMP3M, PHOS3, MG3, CK3 #### [address] [place], [place] #### VD25H #### [facility] [address] [place] [address] MCV Entitic volume (RBC) 86.8 fL Normal 80.0-98.0 [facility] Comment on above: Performed By: #### H EMDF, PT, BMP3M, PHOS3, MG3, CK3 #### [address] #### VD25H #### [facility] [address] [place] [address] Monocytes #/vol (Bld) 0.8 10*3/uL Normal 0.0-0.8 [facility] Comment on above: Performed By: #### H EMDF, PT, BMP3M, PHOS3, MG3, CK3 #### [address] #### VD25H #### [facility] [address] [place] [address] Monocytes/100 WBC (Bld) 7.2 % Normal 2.0-10.0 [facility] Comment on above: Performed By: #### H EMDF, PT, BMP3M, PHOS3, MG3, CK3 #### [address] #### VD25H #### [facility] [address] [place] [address] Platelet mean volume Entitic volume (Bld) 7.8 fL Normal 7.4-10.4 [facility] Comment on above: Performed By: #### H EMDF, PT, BMP3M, PHOS3, MG3, CK3 #### [address] #### VD25H #### [facility] [address] [place] [address] Platelets #/vol (Bld) 301 10*3/uL Normal 140-440 [facility] Comment on above: Performed By: #### H EMDF, PT, BMP3M, PHOS3, MG3, CK3 #### [facility] [address] [place], [place] #### VD25H #### [facility] [address] [place] [address] RBC #/vol (Bld) 4.29 10*6/uL Low 4.40-5.90 [facility] Comment on above: Performed By: #### H EMDF, PT, BMP3M, PHOS3, MG3, CK3 #### [address] #### VD25H #### [facility] [address] [place] [address] WBC #/vol (Bld) 10.8 10*3/uL High 3.6-10.7 [facility] Comment on above: Performed By: #### H EMDF, PT, BMP3M, PHOS3, MG3, CK3 #### [address] #### VD25H #### [facility] [address] [place] [address] Arterial Blood Gaseson 07-17 CO2 molar conc 29.7 mmol/L High 23.0-27.0 [facility] Comment on above: Performed By: #### H EMDF, PT, BMP3M, PHOS3, MG3, CK3 #### [address] #### VD25H #### [facility] [address] [place] [address] HCO3 molar conc (Bld) 28.4 mmol/L High 21.0-25.0 [facility] Comment on above: Performed By: #### H EMDF, PT, BMP3M, PHOS3, MG3, CK3 #### [address] #### VD25H #### [facility] [address] [place] [address] Hemoglobin mass conc (Bld) 11.1 g/dL Normal [facility] Comment on above: Performed By: #### H EMDF, PT, BMP3M, PHOS3, MG3, CK3 #### [facility] [address] [place], [place] #### VD25H #### [facility] [address] [place] [address] Oxygen ppres (Bld) 109.2 mm[Hg] High 80.0-100.0 [facility] Comment on above: Performed By: #### H EMDF, PT, BMP3M, PHOS3, MG3, CK3 #### [address] [address] [address] [place], [place] #### VD25H #### [facility] [address] [place] [address] Oxygen saturation in Blood 97.8 % Normal 95.0-100.0 [facility] Comment on above: Performed By: #### H EMDF, PT, BMP3M, PHOS3, MG3, CK3 #### [address] [address] [address] [place], [place] #### VD25H #### [facility] [address] [place] [address] pCO2 39.8 mm[Hg] Normal 35.0-45.0 [facility] Comment on above: Performed By: #### H EMDF, PT, BMP3M, PHOS3, MG3, CK3 #### [address] [address] [address] [place] #### VD25H #### [facility] [address] [place] [address] pH (Bld) 7.472 High 7.350-7.450 [facility] Comment on above: Performed By: #### H EMDF, PT, BMP3M, PHOS3, MG3, CK3 #### [address] [address] [address] [place] #### VD25H #### [facility] [address] [place] [address] Std Base Excess 4.5 mmol/L High -3.0-3.0 [facility] Comment on above: Performed By: #### H EMDF, PT, BMP3M, PHOS3, MG3, CK3 #### [facility] [address] [place], [place] #### VD25H #### [facility] [address] [place] [address] FIO2 60% Normal [facility] Comment on above: Performed By: #### H EMDF, PT, BMP3M, PHOS3, MG3, CK3 #### [address] [place] [address] [address] [place] #### VD25H #### [facility] [address] [place] [address] Basic Metabolic Panelon - Anion gap molar conc 6 Normal [facility] Comment on above: Performed By: #### H EMDF, PT, BMP3M, PHOS3, MG3, CK3 #### [address] [address] [address] [place] #### VD25H #### [facility] [address] [place] [address] Calcium mass conc 8.0 mg/dL Low 8.4-10.4 [facility] Comment on above: Performed By: #### H EMDF, PT, BMP3M, PHOS3, MG3, CK3 #### [address] [address] [address] [place] #### VD25H #### [facility] [address] [place] [address] CO2 molar conc 31 mmol/L High 22-30 [facility] Comment on above: Performed By: #### H EMDF, PT, BMP3M, PHOS3, MG3, CK3 #### [address] [address] [address] [place] #### VD25H #### [facility] [address] [place] [address] Glucose mass conc 107 mg/dL High 70-100 [facility] Comment on above: Performed By: #### H EMDF, PT, BMP3M, PHOS3, MG3, CK3 #### [address] [address] [place] [address] #### VD25H #### [facility] [address] [place] [address] Urea nitrogen mass conc 22 mg/dL High 7-20 [facility] Comment on above: Performed By: #### H EMDF, PT, BMP3M, PHOS3, MG3, CK3 #### [address] [address] [place] [address] #### VD25H #### [facility] [address] [place] [address] Creatinine mass conc 0.66 mg/dL Normal 0.52-1.25 [facility] Comment on above: Performed By: #### H EMDF, PT, BMP3M, PHOS3, MG3, CK3 #### [address] [address] #### VD25H #### [facility] [address] [place] [address] GFR/1.73 sq M predicted among blacks MDRD vol rate/area (S/P/Bld) mL/min/{1.73_m2} Normal >60 [facility] Comment on above: Performed By: #### H EMDF, PT, BMP3M, PHOS3, MG3, CK3 #### [address] [address] [place] [address] #### VD25H #### [facility] [address] [place] [address] GFR/1.73 sq M predicted among non-blacks MDRD vol rate/area (S/P/Bld) mL/min/{1.73_m2} Normal >60 [facility] Comment on above: Result Comment: Sour ce- MDRD equation with creatinine calibration to IDMS(NKDEP) eGFR not recommended for drug dose adjustment Performed By: #### H EMDF, PT, BMP3M, PHOS3, MG3, CK3 #### [facility] [address] [facility] [place] [address] #### VD25H #### [facility] [address] [place] [address] Chloride molar conc 105 mmol/L Normal 98-107 [facility] Comment on above: Performed By: #### H EMDF, PT, BMP3M, PHOS3, MG3, CK3 #### [facility] [address] [facility] [place] [address] #### VD25H #### [facility] [address] [place] [address] Potassium molar conc 3.9 mmol/L Normal 3.5-5.1 [facility] Comment on above: Performed By: #### H EMDF, PT, BMP3M, PHOS3, MG3, CK3 #### [facility] [address] [facility] [place] [address] #### VD25H #### [facility] [address] [place] [address] Sodium molar conc 142 mmol/L Normal 135-145 [facility] Comment on above: Performed By: #### H EMDF, PT, BMP3M, PHOS3, MG3, CK3 #### [facility] [address] [facility] [place] [address] #### VD25H #### [facility] [address] [place] [address] CR Abdomen APon 07-17-2018 CR Abdomen AP Patient Name: KATHYA HOOPER Diagnostic Radiology Exam Date/Time 07/17/2018 12:46:31 EDT Exam CR Abdomen AP Ordering Physician [id number] AGUILERA Accession Number [id number] CPT4 Codes 11403 () Reason For Exam ileus Report Abdomen: [...] Transcribed Date and Time: 07/17/2018 12:46 Normal [facility] CR Abdomen AP Patient Name: KATHYA HOOPER Diagnostic Radiology Exam Date/Time 07/17/2018 06:25:43 EDT Exam CR Abdomen AP Ordering Physician JOYA ROJAS Accession Number [id number] CPT4 Codes 91018 () Reason For Exam ileus Report Abdomen: [...] Transcribed Date and Time: 07/17/2018 7:16 Normal [facility] CR Chest Portableon 07-18-19 19 CR Chest Portable Patient Name: KATHYA HOOPER Diagnostic Radiology Exam Date/Time 07/17/2018 18:08:41 EDT Exam CR Chest Portable Ordering Physician SALO DAVIS Accession Number [id number] CPT4 Codes 93879 () Reason For Exam picc Report CHEST [...] Transcribed Date and Time: 07/17/2018 7:24 Normal [facility] CR Chest Portable Patient Name: KATHYA HOOPER Diagnostic Radiology Exam Date/Time 07/17/2018 18:08:41 EDT Exam CR Chest Portable Ordering Physician SALO DAVIS Accession Number [id number] CPT4 Codes 74836 () Reason For Exam reheck line tip [...] Transcribed Date and Time: 07/17/2018 7:21 Normal [facility] CR Chest Portable Patient Name: KATHYA HOOPER Diagnostic Radiology Exam Date/Time 07/17/2018 06:26:06 EDT Exam CR Chest Portable Ordering Physician MARIA EUGENIA PEREZ Accession Number [id number] CPT4 Codes 74322 () Reason For Exam ETT placement Report [...] Transcribed Date and Time: 07/17/2018 7:17 Normal [facility] Hemogram w/ Autodiffon 07-17 Abs Baso Cnt 0.0 10*3/uL Normal 0.0-0.2 [facility] Comment on above: Performed By: #### H EMDF, PT, BMP3M, PHOS3, MG3, CK3 #### [facility] [address] [place] [address] #### VD25H #### [facility] [address] [place] [address] Abs Neutrophile Cnt 8.1 10*3/uL High 1.8-7.0 [facility] Comment on above: Performed By: #### H EMDF, PT, BMP3M, PHOS3, MG3, CK3 #### [facility] [address] [place], [place] #### VD25H #### [facility] [address] [place] [address] Basophils/100 WBC (Bld) 0.4 % Normal 0.0-2.0 [facility] Comment on above: Performed By: #### H EMDF, PT, BMP3M, PHOS3, MG3, CK3 #### [facility] [address] [place] #### VD25H #### [facility] [address] [place] [address] Eosinophils #/vol (Bld) 0.1 10*3/uL Normal 0.0-0.5 [facility] Comment on above: Performed By: #### H EMDF, PT, BMP3M, PHOS3, MG3, CK3 #### [address] #### VD25H #### [facility] [address] [place] [address] Eosinophils/100 WBC (Bld) 1.4 % Normal 1.0-6.0 [facility] Comment on above: Performed By: #### H EMDF, PT, BMP3M, PHOS3, MG3, CK3 #### [address] #### VD25H #### [facility] [address] [place] [address] Erythrocyte distribution width Ratio (RBC) 13.5 % Normal 11.5-14.5 [facility] Comment on above: Performed By: #### H EMDF, PT, BMP3M, PHOS3, MG3, CK3 #### [address] #### VD25H #### [facility] [address] [place] [address] Granulocytes/100 WBC (Bld) 78.6 % Normal 40.0-80.0 [facility] Comment on above: Performed By: #### H EMDF, PT, BMP3M, PHOS3, MG3, CK3 #### [address] [place], [place] #### VD25H #### [facility] [address] [place] [address] Hematocrit Volume Fraction (Bld) 31.3 % Low 40.0-52.0 [facility] Comment on above: Performed By: #### H EMDF, PT, BMP3M, PHOS3, MG3, CK3 #### [address] #### VD25H #### [facility] [address] [place] [address] Hemoglobin mass conc (Bld) 10.4 g/dL Low 13.0-18.0 [facility] Comment on above: Performed By: #### H EMDF, PT, BMP3M, PHOS3, MG3, CK3 #### [address] #### VD25H #### [facility] [address] [place] [address] Lymphocytes #/vol (Bld) 1.0 10*3/uL Normal 1.0-4.3 [facility] Comment on above: Performed By: #### H EMDF, PT, BMP3M, PHOS3, MG3, CK3 #### [address] #### VD25H #### [facility] [address] [place] [address] Lymphocytes/100 WBC (Bld) 10.0 % Low 20.0-40.0 [facility] Comment on above: Performed By: #### H EMDF, PT, BMP3M, PHOS3, MG3, CK3 #### [address] #### VD25H #### [facility] [address] [place] [address] MCH Entitic mass (RBC) 29.3 pg Normal 26.0-34.0 [facility] Comment on above: Performed By: #### H EMDF, PT, BMP3M, PHOS3, MG3, CK3 #### [address] [place], [place] #### VD25H #### [facility] [address] [place] [address] MCHC mass conc (RBC) 33.3 % Normal 32.0-36.0 [facility] Comment on above: Performed By: #### H EMDF, PT, BMP3M, PHOS3, MG3, CK3 #### [address] #### VD25H #### [facility] [address] [place] [address] MCV Entitic volume (RBC) 87.9 fL Normal 80.0-98.0 [facility] Comment on above: Performed By: #### H EMDF, PT, BMP3M, PHOS3, MG3, CK3 #### [address] #### VD25H #### [facility] [address] [place] [address] Monocytes #/vol (Bld) 1.0 10*3/uL High 0.0-0.8 [facility] Comment on above: Performed By: #### H EMDF, PT, BMP3M, PHOS3, MG3, CK3 #### [address] #### VD25H #### [facility] [address] [place] [address] Monocytes/100 WBC (Bld) 9.6 % Normal 2.0-10.0 [facility] Comment on above: Performed By: #### H EMDF, PT, BMP3M, PHOS3, MG3, CK3 #### [address] #### VD25H #### [place] [address] [place] [address] Platelet mean volume Entitic volume (Bld) 7.6 fL Normal 7.4-10.4 [facility] Comment on above: Performed By: #### H EMDF, PT, BMP3M, PHOS3, MG3, CK3 #### [address] #### VD25H #### [facility] [address] [place] [address] Platelets #/vol (Bld) 307 10*3/uL Normal 140-440 [facility] Comment on above: Performed By: #### H EMDF, PT, BMP3M, PHOS3, MG3, CK3 #### [address] #### VD25H #### [facility] [address] [place] [address] RBC #/vol (Bld) 3.56 10*6/uL Low 4.40-5.90 [facility] Comment on above: Performed By: #### H EMDF, PT, BMP3M, PHOS3, MG3, CK3 #### [address] #### VD25H #### [facility] [address] [place] [address] WBC #/vol (Bld) 10.2 10*3/uL Normal 3.6-10.7 [facility] Comment on above: Performed By: #### H EMDF, PT, BMP3M, PHOS3, MG3, CK3 #### [address] #### VD25H #### [facility] [address] [place] [address] Basic Metabolic Panelon - Calcium mass conc 8.1 mg/dL Low 8.4-10.4 [facility] Comment on above: Performed By: #### H EMDF, PT, BMP3M, PHOS3, MG3, CK3 #### [address] #### VD25H #### [facility] [address] [place] [address] Anion gap molar conc 5 Normal [facility] Comment on above: Performed By: #### H EMDF, PT, BMP3M, PHOS3, MG3, CK3 #### [address] [address] #### VD25H #### [facility] [address] [place] [address] CO2 molar conc 32 mmol/L High 22-30 [facility] Comment on above: Performed By: #### H EMDF, PT, BMP3M, PHOS3, MG3, CK3 #### [address] [address] #### VD25H #### [facility] [address] [place] [address] Creatinine mass conc 0.62 mg/dL Normal 0.52-1.25 [facility] Comment on above: Performed By: #### H EMDF, PT, BMP3M, PHOS3, MG3, CK3 #### [address] [address] #### VD25H #### [facility] [address] [place] [address] GFR/1.73 sq M predicted among blacks MDRD vol rate/area (S/P/Bld) mL/min/{1.73_m2} Normal >60 [facility] Comment on above: Performed By: #### H EMDF, PT, BMP3M, PHOS3, MG3, CK3 #### [address] [address] #### VD25H #### [facility] [address] [place] [address] GFR/1.73 sq M predicted among non-blacks MDRD vol rate/area (S/P/Bld) mL/min/{1.73_m2} Normal >60 [facility] Comment on above: Result Comment: Sour ce- MDRD equation with creatinine calibration to IDMS(NKDEP) eGFR not recommended for drug dose adjustment Performed By: #### H EMDF, PT, BMP3M, PHOS3, MG3, CK3 #### [facility] [address] [facility], [place] #### VD25H #### [facility] [address] [place] [address] Glucose mass conc 103 mg/dL High 70-100 [facility] Comment on above: Performed By: #### H EMDF, PT, BMP3M, PHOS3, MG3, CK3 #### [place] [address] [address] [facility], [place] #### VD25H #### [facility] [address] [place] [address] Urea nitrogen mass conc 20 mg/dL Normal 7-20 [facility] Comment on above: Performed By: #### H EMDF, PT, BMP3M, PHOS3, MG3, CK3 #### [place] [address] [address] [facility], [place] #### VD25H #### [facility] [address] [place] [address] Chloride molar conc 107 mmol/L Normal 98-107 [facility] Comment on above: Performed By: #### H EMDF, PT, BMP3M, PHOS3, MG3, CK3 #### [place] [address] [address] [facility], [place] #### VD25H #### [facility] [address] [place] [address] Potassium molar conc 3.7 mmol/L Normal 3.5-5.1 [facility] Comment on above: Performed By: #### H EMDF, PT, BMP3M, PHOS3, MG3, CK3 #### [place] [address] [facility] [place] #### VD25H #### [facility] [address] [place] [address] Sodium molar conc 145 mmol/L Normal 135-145 [facility] Comment on above: Performed By: #### H EMDF, PT, BMP3M, PHOS3, MG3, CK3 #### [facility] [address] [place] [address] #### VD25H #### [facility] [address] [place] [address] CR Abdomen APon 07-16-2018 CR Abdomen AP Patient Name: KATHYA HOOPER Diagnostic Radiology Exam Date/Time 07/16/2018 08:00:58 EDT Exam CR Abdomen AP Ordering Physician JOYA ROJAS Accession Number [id number] CPT4 Codes 68087 () Reason For Exam ileus Report KUB [...] Transcribed Date and Time: 07/16/2018 10:03 Normal [facility] CR Chest Portableon 07-17-19 19 CR Chest Portable Patient Name: KATHYA HOOPER Diagnostic Radiology Exam Date/Time 07/16/2018 06:19:28 EDT Exam CR Chest Portable Ordering Physician MARIA EUGENIA PEREZ Accession Number [id number] CPT4 Codes 92320 () Reason For Exam ETT placement Report [...] Transcribed Date and Time: 07/16/2018 10:10 Normal [facility] Hemogram w/ Autodiffon 07-16 Abs Baso Cnt 0.0 10*3/uL Normal 0.0-0.2 [facility] Comment on above: Performed By: #### H EMDF, PT, BMP3M, PHOS3, MG3, CK3 #### [facility] [address] [place], [place] #### VD25H #### [facility] [address] [place] [address] Abs Neutrophile Cnt 8.7 10*3/uL High 1.8-7.0 [facility] Comment on above: Performed By: #### H EMDF, PT, BMP3M, PHOS3, MG3, CK3 #### [facility] [address] [place], [place] #### VD25H #### [facility] [address] [place] [address] Basophils/100 WBC (Bld) 0.2 % Normal 0.0-2.0 [facility] Comment on above: Performed By: #### H EMDF, PT, BMP3M, PHOS3, MG3, CK3 #### [facility] [address] [place] [address] #### VD25H #### [facility] [address] [place] [address] Eosinophils #/vol (Bld) 0.1 10*3/uL Normal 0.0-0.5 [facility] Comment on above: Performed By: #### H EMDF, PT, BMP3M, PHOS3, MG3, CK3 #### [facility] [address] [place], [place] #### VD25H #### [facility] [address] [place] [address] Eosinophils/100 WBC (Bld) 0.7 % Low 1.0-6.0 [facility] Comment on above: Performed By: #### H EMDF, PT, BMP3M, PHOS3, MG3, CK3 #### [place] [address] [place], [place] #### VD25H #### [facility] [address] [place] [address] Erythrocyte distribution width Ratio (RBC) 13.7 % Normal 11.5-14.5 [facility] Comment on above: Performed By: #### H EMDF, PT, BMP3M, PHOS3, MG3, CK3 #### [address] #### VD25H #### [facility] [address] [place] [address] Granulocytes/100 WBC (Bld) 83.0 % High 40.0-80.0 [facility] Comment on above: Performed By: #### H EMDF, PT, BMP3M, PHOS3, MG3, CK3 #### [address] [address] [address] [place], [place] #### VD25H #### [facility] [address] [place] [address] Hematocrit Volume Fraction (Bld) 30.3 % Low 40.0-52.0 [facility] Comment on above: Performed By: #### H EMDF, PT, BMP3M, PHOS3, MG3, CK3 #### [address] #### VD25H #### [facility] [address] [place] [address] Hemoglobin mass conc (Bld) 10.5 g/dL Low 13.0-18.0 [facility] Comment on above: Performed By: #### H EMDF, PT, BMP3M, PHOS3, MG3, CK3 #### [facility] [address] [place], [place] #### VD25H #### [facility] [address] [place] [address] Lymphocytes #/vol (Bld) 0.7 10*3/uL Low 1.0-4.3 [facility] Comment on above: Performed By: #### H EMDF, PT, BMP3M, PHOS3, MG3, CK3 #### [address] #### VD25H #### [facility] [address] [place] [address] Lymphocytes/100 WBC (Bld) 6.7 % Low 20.0-40.0 [facility] Comment on above: Performed By: #### H EMDF, PT, BMP3M, PHOS3, MG3, CK3 #### [address] #### VD25H #### [facility] [address] [place] [address] MCH Entitic mass (RBC) 30.2 pg Normal 26.0-34.0 [facility] Comment on above: Performed By: #### H EMDF, PT, BMP3M, PHOS3, MG3, CK3 #### [address] [place], [place] #### VD25H #### [facility] [address] [place] [address] MCHC mass conc (RBC) 34.6 % Normal 32.0-36.0 [facility] Comment on above: Performed By: #### H EMDF, PT, BMP3M, PHOS3, MG3, CK3 #### [address] #### VD25H #### [facility] [address] [place] [address] MCV Entitic volume (RBC) 87.3 fL Normal 80.0-98.0 [facility] Comment on above: Performed By: #### H EMDF, PT, BMP3M, PHOS3, MG3, CK3 #### [address] [address] [address] [place], [place] #### VD25H #### [facility] [address] [place] [address] Monocytes #/vol (Bld) 1.0 10*3/uL High 0.0-0.8 [facility] Comment on above: Performed By: #### H EMDF, PT, BMP3M, PHOS3, MG3, CK3 #### [address] #### VD25H #### [facility] [address] [place] [address] Monocytes/100 WBC (Bld) 9.4 % Normal 2.0-10.0 [facility] Comment on above: Performed By: #### H EMDF, PT, BMP3M, PHOS3, MG3, CK3 #### [address] #### VD25H #### [facility] [address] [place] [address] Platelet mean volume Entitic volume (Bld) 6.9 fL Low 7.4-10.4 [facility] Comment on above: Performed By: #### H EMDF, PT, BMP3M, PHOS3, MG3, CK3 #### [address] [place], [place] #### VD25H #### [facility] [address] [place] [address] Platelets #/vol (Bld) 254 10*3/uL Normal 140-440 [facility] Comment on above: Performed By: #### H EMDF, PT, BMP3M, PHOS3, MG3, CK3 #### [address] #### VD25H #### [facility] [address] [place] [address] RBC #/vol (Bld) 3.47 10*6/uL Low 4.40-5.90 [facility] Comment on above: Performed By: #### H EMDF, PT, BMP3M, PHOS3, MG3, CK3 #### [address] [place], [place] #### VD25H #### [facility] [address] [place] [address] WBC #/vol (Bld) 10.5 10*3/uL Normal 3.6-10.7 [facility] Comment on above: Performed By: #### H EMDF, PT, BMP3M, PHOS3, MG3, CK3 #### [address] #### VD25H #### [place] [address] [place] [address] Arterial Blood Gaseson 07-15 CO2 molar conc 26.7 mmol/L Normal 23.0-27.0 [facility] Comment on above: Performed By: #### H EMDF, PT, BMP3M, PHOS3, MG3, CK3 #### [address] #### VD25H #### [place] [address] [place] [address] FIO2 50% Normal [facility] Comment on above: Performed By: #### H EMDF, PT, BMP3M, PHOS3, MG3, CK3 #### [address] #### VD25H #### [place] [address] [place] [address] HCO3 molar conc (Bld) 25.7 mmol/L High 21.0-25.0 [facility] Comment on above: Performed By: #### H EMDF, PT, BMP3M, PHOS3, MG3, CK3 #### [facility] [address] [place], [place] #### VD25H #### [facility] [address] [place] [address] Hemoglobin mass conc (Bld) 12.5 g/dL Normal ScreenOnly [facility] Comment on above: Performed By: #### H EMDF, PT, BMP3M, PHOS3, MG3, CK3 #### [facility] [address] [place], [place] #### VD25H #### [facility] [address] [place] [address] Oxygen ppres (Bld) 90.4 mm[Hg] Normal 80.0-100.0 [facility] Comment on above: Performed By: #### H EMDF, PT, BMP3M, PHOS3, MG3, CK3 #### [address] [address] [address] [place], [place] #### VD25H #### [facility] [address] [place] [address] Oxygen saturation in Blood 96.8 % Normal 95.0-100.0 [facility] Comment on above: Performed By: #### H EMDF, PT, BMP3M, PHOS3, MG3, CK3 #### [address] [place] [address] [address] [place], [place] #### VD25H #### [facility] [address] [place] [address] pCO2 33.4 mm[Hg] Low 35.0-45.0 [facility] Comment on above: Performed By: #### H EMDF, PT, BMP3M, PHOS3, MG3, CK3 #### [facility] [address] [place], [place] #### VD25H #### [facility] [address] [place] [address] pH (Bld) 7.504 High 7.350-7.450 [facility] Comment on above: Performed By: #### H EMDF, PT, BMP3M, PHOS3, MG3, CK3 #### [address] [place], [place] #### VD25H #### [facility] [address] [place] [address] Std Base Excess 2.9 mmol/L Normal -3.0-3.0 [facility] Comment on above: Performed By: #### H EMDF, PT, BMP3M, PHOS3, MG3, CK3 #### [place] [address] [address] [facility], [place] #### VD25H #### [facility] [address] [place] [address] Basic Metabolic Panelon 06-29 Anion gap molar conc 8 Normal [facility] Comment on above: Performed By: #### H EMDF, PT, BMP3M, PHOS3, MG3, CK3 #### [address] #### VD25H #### [place] [address] [place] [address] Calcium mass conc 8.6 mg/dL Normal 8.4-10.4 [facility] Comment on above: Performed By: #### H EMDF, PT, BMP3M, PHOS3, MG3, CK3 #### [address], [place] #### VD25H #### [facility] [address] [place] [address] CO2 molar conc 29 mmol/L Normal 22-30 [facility] Comment on above: Performed By: #### H EMDF, PT, BMP3M, PHOS3, MG3, CK3 #### [address], [place] #### VD25H #### [facility] [address] [place] [address] Glucose mass conc 119 mg/dL High 70-100 [facility] Comment on above: Performed By: #### H EMDF, PT, BMP3M, PHOS3, MG3, CK3 #### [address], [place] #### VD25H #### [facility] [address] [place] [address] Urea nitrogen mass conc 23 mg/dL High 7-20 [facility] Comment on above: Performed By: #### H EMDF, PT, BMP3M, PHOS3, MG3, CK3 #### [address] [address] [address] [place], [place] #### VD25H #### [facility] [address] [place] [address] Creatinine mass conc 0.73 mg/dL Normal 0.52-1.25 [facility] Comment on above: Performed By: #### H EMDF, PT, BMP3M, PHOS3, MG3, CK3 #### [address] #### VD25H #### [place] [address] [place] [address] GFR/1.73 sq M predicted among blacks MDRD vol rate/area (S/P/Bld) mL/min/{1.73_m2} Normal >60 [facility] Comment on above: Performed By: #### H EMDF, PT, BMP3M, PHOS3, MG3, CK3 #### [address] #### VD25H #### [place] [address] [place] [address] GFR/1.73 sq M predicted among non-blacks MDRD vol rate/area (S/P/Bld) mL/min/{1.73_m2} Normal >60 [facility] Comment on above: Result Comment: Sour ce- MDRD equation with creatinine calibration to IDMS(NKDEP) eGFR not recommended for drug dose adjustment Performed By: #### H EMDF, PT, BMP3M, PHOS3, MG3, CK3 #### [address] #### VD25H #### [facility] [address] [place] [address] Potassium molar conc 4.1 mmol/L Normal 3.5-5.1 [facility] Comment on above: Performed By: #### H EMDF, PT, BMP3M, PHOS3, MG3, CK3 #### [facility] [address] [place] [address] #### VD25H #### [facility] [address] [place] [address] Sodium molar conc 144 mmol/L Normal 135-145 [facility] Comment on above: Performed By: #### H EMDF, PT, BMP3M, PHOS3, MG3, CK3 #### [facility] [address] [place] [address] #### VD25H #### [facility] [address] [place] [address] Chloride molar conc 107 mmol/L Normal 98-107 [facility] Comment on above: Performed By: #### H EMDF, PT, BMP3M, PHOS3, MG3, CK3 #### [facility] [address] [place] [address] #### VD25H #### [facility] [address] [place] [address] CR Abdomen APon 07-15-2018 CR Abdomen AP Patient Name: KATHYA HOOPER Diagnostic Radiology Exam Date/Time 07/15/2018 09:25:44 EDT Exam CR Abdomen AP Ordering Physician [id number] AGUILERA Accession Number [id number] CPT4 Codes 14874 () Reason For Exam ileus Report EXAMINATION: [...] Transcribed Date and Time: 07/15/2018 10:07 Normal [facility] CR Chest Portableon 07-16-19 19 CR Chest Portable Patient Name: KATHYA HOOPER Diagnostic Radiology Exam Date/Time 07/15/2018 06:00:00 EDT Exam CR Chest Portable Ordering Physician MARIA EUGENIA PEREZ Accession Number [id number] CPT4 Codes 08442 () Reason For Exam ETT placement Report [...] Transcribed Date and Time: 07/15/2018 9:14 Normal [facility] CULT./ST. RESPIRATORYon 06-29 CULT./ST. RESPIRATORY [...] in clusters. Rare gram negative bacilli. Normal [facility] Comment on above: Order Comment: Speci men Source Comment:Sputum, Suctioned Performed By: #### H EMDF, PT, BMP3M, PHOS3, MG3, CK3 #### [address] #### VD25H #### [facility] [address] [place] [address] Hemogram w/ Autodiffon 07-15 Abs Baso Cnt 0.0 10*3/uL Normal 0.0-0.2 [facility] Comment on above: Performed By: #### H EMDF, PT, BMP3M, PHOS3, MG3, CK3 #### [address] #### VD25H #### [place] [address] [place] [address] Abs Neutrophile Cnt 13.2 10*3/uL High 1.8-7.0 [facility] Comment on above: Performed By: #### H EMDF, PT, BMP3M, PHOS3, MG3, CK3 #### [address] #### VD25H #### [facility] [address] [place] [address] Basophils/100 WBC (Bld) 0.2 % Normal 0.0-2.0 [facility] Comment on above: Performed By: #### H EMDF, PT, BMP3M, PHOS3, MG3, CK3 #### [address] #### VD25H #### [facility] [address] [place] [address] Eosinophils #/vol (Bld) 0.0 10*3/uL Normal 0.0-0.5 [facility] Comment on above: Performed By: #### H EMDF, PT, BMP3M, PHOS3, MG3, CK3 #### [address] #### VD25H #### [place] [address] [place] [address] Eosinophils/100 WBC (Bld) 0.1 % Low 1.0-6.0 [facility] Comment on above: Performed By: #### H EMDF, PT, BMP3M, PHOS3, MG3, CK3 #### [address] #### VD25H #### [facility] [address] [place] [address] Erythrocyte distribution width Ratio (RBC) 13.9 % Normal 11.5-14.5 [facility] Comment on above: Performed By: #### H EMDF, PT, BMP3M, PHOS3, MG3, CK3 #### [address] #### VD25H #### [facility] [address] [place] [address] Granulocytes/100 WBC (Bld) 88.1 % High 40.0-80.0 [facility] Comment on above: Performed By: #### H EMDF, PT, BMP3M, PHOS3, MG3, CK3 #### [address] #### VD25H #### [facility] [address] [place] [address] Hematocrit Volume Fraction (Bld) 35.3 % Low 40.0-52.0 [facility] Comment on above: Performed By: #### H EMDF, PT, BMP3M, PHOS3, MG3, CK3 #### [address] #### VD25H #### [facility] [address] [place] [address] Hemoglobin mass conc (Bld) 11.9 g/dL Low 13.0-18.0 [facility] Comment on above: Performed By: #### H EMDF, PT, BMP3M, PHOS3, MG3, CK3 #### [address] [address] #### VD25H #### [facility] [address] [place] [address] Lymphocytes #/vol (Bld) 0.8 10*3/uL Low 1.0-4.3 [facility] Comment on above: Performed By: #### H EMDF, PT, BMP3M, PHOS3, MG3, CK3 #### [address] #### VD25H #### [facility] [address] [place] [address] Lymphocytes/100 WBC (Bld) 5.0 % Low 20.0-40.0 [facility] Comment on above: Performed By: #### H EMDF, PT, BMP3M, PHOS3, MG3, CK3 #### [address] #### VD25H #### [place] [address] [place] [address] MCH Entitic mass (RBC) 29.5 pg Normal 26.0-34.0 [facility] Comment on above: Performed By: #### H EMDF, PT, BMP3M, PHOS3, MG3, CK3 #### [address] #### VD25H #### [place] [address] [place] [address] MCHC mass conc (RBC) 33.8 % Normal 32.0-36.0 [facility] Comment on above: Performed By: #### H EMDF, PT, BMP3M, PHOS3, MG3, CK3 #### [address] #### VD25H #### [facility] [address] [place] [address] MCV Entitic volume (RBC) 87.2 fL Normal 80.0-98.0 [facility] Comment on above: Performed By: #### H EMDF, PT, BMP3M, PHOS3, MG3, CK3 #### [address] #### VD25H #### [facility] [address] [place] [address] Monocytes #/vol (Bld) 1.0 10*3/uL High 0.0-0.8 [facility] Comment on above: Performed By: #### H EMDF, PT, BMP3M, PHOS3, MG3, CK3 #### [facility] [address] [place], [place] #### VD25H #### [facility] [address] [place] [address] Monocytes/100 WBC (Bld) 6.6 % Normal 2.0-10.0 [facility] Comment on above: Performed By: #### H EMDF, PT, BMP3M, PHOS3, MG3, CK3 #### [place] [address] [address] [place], [place] #### VD25H #### [facility] [address] [place] [address] Platelet mean volume Entitic volume (Bld) 7.9 fL Normal 7.4-10.4 [facility] Comment on above: Performed By: #### H EMDF, PT, BMP3M, PHOS3, MG3, CK3 #### [address] [place] [address] [address] [place], [place] #### VD25H #### [facility] [address] [place] [address] Platelets #/vol (Bld) 319 10*3/uL Normal 140-440 [facility] Comment on above: Performed By: #### H EMDF, PT, BMP3M, PHOS3, MG3, CK3 #### [place] [address] [address] [place] #### VD25H #### [facility] [address] [place] [address] RBC #/vol (Bld) 4.05 10*6/uL Low 4.40-5.90 [facility] Comment on above: Performed By: #### H EMDF, PT, BMP3M, PHOS3, MG3, CK3 #### [place] [address] [address] [place], [place] #### VD25H #### [facility] [address] [place] [address] WBC #/vol (Bld) 15.0 10*3/uL High 3.6-10.7 [facility] Comment on above: Performed By: #### H EMDF, PT, BMP3M, PHOS3, MG3, CK3 #### [address] [place], [place] #### VD25H #### [facility] [address] [place] [address] Basic Metabolic Panelon 06-29 Anion gap molar conc 9 Normal [facility] Comment on above: Performed By: #### H EMDF, PT, BMP3M, PHOS3, MG3, CK3 #### [address] #### VD25H #### [facility] [address] [place] [address] Calcium mass conc 7.6 mg/dL Low 8.4-10.4 [facility] Comment on above: Performed By: #### H EMDF, PT, BMP3M, PHOS3, MG3, CK3 #### [address] #### VD25H #### [facility] [address] [place] [address] CO2 molar conc 26 mmol/L Normal 22-30 [facility] Comment on above: Performed By: #### H EMDF, PT, BMP3M, PHOS3, MG3, CK3 #### [address] #### VD25H #### [facility] [address] [place] [address] Glucose mass conc 148 mg/dL High 70-100 [facility] Comment on above: Performed By: #### H EMDF, PT, BMP3M, PHOS3, MG3, CK3 #### [address] #### VD25H #### [facility] [address] [place] [address] Urea nitrogen mass conc 16 mg/dL Normal 7-20 [facility] Comment on above: Performed By: #### H EMDF, PT, BMP3M, PHOS3, MG3, CK3 #### [address] #### VD25H #### [facility] [address] [place] [address] Creatinine mass conc 0.62 mg/dL Normal 0.52-1.25 [facility] Comment on above: Performed By: #### H EMDF, PT, BMP3M, PHOS3, MG3, CK3 #### [address] #### VD25H #### [place] [address] [place] [address] GFR/1.73 sq M predicted among blacks MDRD vol rate/area (S/P/Bld) mL/min/{1.73_m2} Normal >60 [facility] Comment on above: Performed By: #### H EMDF, PT, BMP3M, PHOS3, MG3, CK3 #### [address] #### VD25H #### [place] [address] [place] [address] GFR/1.73 sq M predicted among non-blacks MDRD vol rate/area (S/P/Bld) mL/min/{1.73_m2} Normal >60 [facility] Comment on above: Result Comment: Sour ce- MDRD equation with creatinine calibration to IDMS(NKDEP) eGFR not recommended for drug dose adjustment Performed By: #### H EMDF, PT, BMP3M, PHOS3, MG3, CK3 #### [address] #### VD25H #### [facility] [address] [place] [address] Potassium molar conc 4.5 mmol/L Normal 3.5-5.1 [facility] Comment on above: Performed By: #### H EMDF, PT, BMP3M, PHOS3, MG3, CK3 #### [facility] [address] [place], [place] #### VD25H #### [facility] [address] [place] [address] Sodium molar conc 137 mmol/L Normal 135-145 [facility] Comment on above: Performed By: #### H EMDF, PT, BMP3M, PHOS3, MG3, CK3 #### [facility] [address] [place], [place] #### VD25H #### [facility] [address] [place] [address] Chloride molar conc 103 mmol/L Normal 98-107 [facility] Comment on above: Performed By: #### H EMDF, PT, BMP3M, PHOS3, MG3, CK3 #### [facility] [address] [place], [place] #### VD25H #### [facility] [address] [place] [address] CR Abdomen APon 07-14-2018 CR Abdomen AP Patient Name: KATHYA HOOPER Diagnostic Radiology Exam Date/Time 07/14/2018 19:15:43 EDT Exam CR Abdomen AP Ordering Physician [id number] THAKKAR Accession Number [id number] CPT4 Codes 87088 () Reason For Exam Distended with emesis [...] Transcribed Date and Time: 07/14/2018 7:28 Normal [facility] CR Chest Portableon 07-15-19 19 CR Chest Portable Patient Name: KATHYA HOOPER Diagnostic Radiology Exam Date/Time 07/14/2018 06:53:29 EDT Exam CR Chest Portable Ordering Physician MARIA EUGENIA PEREZ Accession Number [id number] CPT4 Codes 03894 () Reason For Exam ETT placement Report [...] Transcribed Date and Time: 07/14/2018 11:51 Normal [facility] Hemogram w/ Autodiffon 07-14 Abs Baso Cnt 0.0 10*3/uL Normal 0.0-0.2 [facility] Comment on above: Performed By: #### H EMDF, PT, BMP3M, PHOS3, MG3, CK3 #### [address] [address] #### VD25H #### [facility] [address] [place] [address] Abs Neutrophile Cnt 11.7 10*3/uL High 1.8-7.0 [facility] Comment on above: Performed By: #### H EMDF, PT, BMP3M, PHOS3, MG3, CK3 #### [address] [place], [place] #### VD25H #### [facility] [address] [place] [address] Basophils/100 WBC (Bld) 0.3 % Normal 0.0-2.0 [facility] Comment on above: Performed By: #### H EMDF, PT, BMP3M, PHOS3, MG3, CK3 #### [address] #### VD25H #### [place] [address] [place] [address] Eosinophils #/vol (Bld) 0.0 10*3/uL Normal 0.0-0.5 [facility] Comment on above: Performed By: #### H EMDF, PT, BMP3M, PHOS3, MG3, CK3 #### [address] #### VD25H #### [place] [address] [place] [address] Eosinophils/100 WBC (Bld) 0.1 % Low 1.0-6.0 [facility] Comment on above: Performed By: #### H EMDF, PT, BMP3M, PHOS3, MG3, CK3 #### [address] #### VD25H #### [facility] [address] [place] [address] Erythrocyte distribution width Ratio (RBC) 13.8 % Normal 11.5-14.5 [facility] Comment on above: Performed By: #### H EMDF, PT, BMP3M, PHOS3, MG3, CK3 #### [address] #### VD25H #### [facility] [address] [place] [address] Granulocytes/100 WBC (Bld) 89.1 % High 40.0-80.0 [facility] Comment on above: Performed By: #### H EMDF, PT, BMP3M, PHOS3, MG3, CK3 #### [address] #### VD25H #### [facility] [address] [place] [address] Hematocrit Volume Fraction (Bld) 33.8 % Low 40.0-52.0 [facility] Comment on above: Performed By: #### H EMDF, PT, BMP3M, PHOS3, MG3, CK3 #### [address] #### VD25H #### [facility] [address] [place] [address] Hemoglobin mass conc (Bld) 11.5 g/dL Low 13.0-18.0 [facility] Comment on above: Performed By: #### H EMDF, PT, BMP3M, PHOS3, MG3, CK3 #### [place] [address] [place] #### VD25H #### [facility] [address] [place] [address] Lymphocytes #/vol (Bld) 0.6 10*3/uL Low 1.0-4.3 [facility] Comment on above: Performed By: #### H EMDF, PT, BMP3M, PHOS3, MG3, CK3 #### [address] #### VD25H #### [facility] [address] [place] [address] Lymphocytes/100 WBC (Bld) 4.5 % Low 20.0-40.0 [facility] Comment on above: Performed By: #### H EMDF, PT, BMP3M, PHOS3, MG3, CK3 #### [address] [place], [place] #### VD25H #### [facility] [address] [place] [address] MCH Entitic mass (RBC) 29.6 pg Normal 26.0-34.0 [facility] Comment on above: Performed By: #### H EMDF, PT, BMP3M, PHOS3, MG3, CK3 #### [address] [place], [place] #### VD25H #### [facility] [address] [place] [address] MCHC mass conc (RBC) 33.9 % Normal 32.0-36.0 [facility] Comment on above: Performed By: #### H EMDF, PT, BMP3M, PHOS3, MG3, CK3 #### [address] #### VD25H #### [place] [address] [place] [address] MCV Entitic volume (RBC) 87.3 fL Normal 80.0-98.0 [facility] Comment on above: Performed By: #### H EMDF, PT, BMP3M, PHOS3, MG3, CK3 #### [address] #### VD25H #### [facility] [address] [place] [address] Monocytes #/vol (Bld) 0.8 10*3/uL Normal 0.0-0.8 [facility] Comment on above: Performed By: #### H EMDF, PT, BMP3M, PHOS3, MG3, CK3 #### [address] #### [id number] #### [facility] [address] [place] [address] Monocytes/100 WBC (Bld) 6.0 % Normal 2.0-10.0 [facility] Comment on above: Performed By: #### H EMDF, PT, BMP3M, PHOS3, MG3, CK3 #### [place] [address] [address] [place], [place] #### [id number] #### [facility] [address] [place] [address] Platelet mean volume Entitic volume (Bld) 8.1 fL Normal 7.4-10.4 [facility] Comment on above: Performed By: #### H EMDF, PT, BMP3M, PHOS3, MG3, CK3 #### [address] [place], [place] #### VD25H #### [facility] [address] [place] [address] Platelets #/vol (Bld) 196 10*3/uL Normal 140-440 [facility] Comment on above: Performed By: #### H EMDF, PT, BMP3M, PHOS3, MG3, CK3 #### [address] [place], [place] #### VD25H #### [facility] [address] [place] [address] RBC #/vol (Bld) 3.87 10*6/uL Low 4.40-5.90 [facility] Comment on above: Performed By: #### H EMDF, PT, BMP3M, PHOS3, MG3, CK3 #### [address] #### VD25H #### [facility] [address] [place] [address] WBC #/vol (Bld) 13.2 10*3/uL High 3.6-10.7 [facility] Comment on above: Performed By: #### H EMDF, PT, BMP3M, PHOS3, MG3, CK3 #### [address] [place], [place] #### VD25H #### [facility] [address] [place] [address] Add on test from HISon 07-13 Add on test from HIS Rejected Normal [facility] Comment on above: Result Comment: No s angela available for addon. Performed By: #### H EMDF, PT, BMP3M, PHOS3, MG3, CK3 #### [facility] [address] [place], [place] #### VD25H #### [facility] [address] [place] [address] Arterial Blood Gaseson 07-13 CO2 molar conc 25.6 mmol/L Normal 23.0-27.0 [facility] Comment on above: Performed By: #### H EMDF, PT, BMP3M, PHOS3, MG3, CK3 #### [address] #### VD25H #### [place] [address] [place] [address] HCO3 molar conc (Bld) 24.5 mmol/L Normal 21.0-25.0 [facility] Comment on above: Performed By: #### H EMDF, PT, BMP3M, PHOS3, MG3, CK3 #### [address] #### VD25H #### [facility] [address] [place] [address] Hemoglobin mass conc (Bld) 9.7 g/dL Normal ScreenOnly [facility] Comment on above: Performed By: #### H EMDF, PT, BMP3M, PHOS3, MG3, CK3 #### [address] #### VD25H #### [facility] [address] [place] [address] Oxygen ppres (Bld) 99.9 mm[Hg] Normal 80.0-100.0 [facility] Comment on above: Performed By: #### H EMDF, PT, BMP3M, PHOS3, MG3, CK3 #### [address] #### VD25H #### [place] [address] [place] [address] Oxygen saturation in Blood 97.5 % Normal 95.0-100.0 [facility] Comment on above: Performed By: #### H EMDF, PT, BMP3M, PHOS3, MG3, CK3 #### [address] #### VD25H #### [place] [address] [place] [address] pCO2 36.0 mm[Hg] Normal 35.0-45.0 [facility] Comment on above: Performed By: #### H EMDF, PT, BMP3M, PHOS3, MG3, CK3 #### [address] #### VD25H #### [address] [place] [address] pH (Bld) 7.450 Normal 7.350-7.450 [facility] Comment on above: Performed By: #### H EMDF, PT, BMP3M, PHOS3, MG3, CK3 #### [address] #### VD25H #### [address] [place] [address] Std Base Excess 0.6 mmol/L Normal -3.0-3.0 [facility] Comment on above: Performed By: #### H EMDF, PT, BMP3M, PHOS3, MG3, CK3 #### [address] #### VD25H #### [address] [place] [address] FIO2 .50 Normal [facility] Comment on above: Performed By: #### H EMDF, PT, BMP3M, PHOS3, MG3, CK3 #### [address] #### VD25H #### [address] [place] [address] Basic Metabolic Panelon 03- Calcium mass conc 7.6 mg/dL Low 8.4-10.4 [facility] Comment on above: Performed By: #### H EMDF, PT, BMP3M, PHOS3, MG3, CK3 #### [facility] [address] [place] [address] #### VD25H #### [facility] [address] [place] [address] Glucose mass conc 120 mg/dL High 70-100 [facility] Comment on above: Performed By: #### H EMDF, PT, BMP3M, PHOS3, MG3, CK3 #### [address] #### VD25H #### [facility] [address] [place] [address] Anion gap molar conc 7 Normal [facility] Comment on above: Performed By: #### H EMDF, PT, BMP3M, PHOS3, MG3, CK3 #### [address] #### VD25H #### [facility] [address] [place] [address] CO2 molar conc 27 mmol/L Normal 22-30 [facility] Comment on above: Performed By: #### H EMDF, PT, BMP3M, PHOS3, MG3, CK3 #### [address] #### VD25H #### [facility] [address] [place] [address] Creatinine mass conc 0.62 mg/dL Normal 0.52-1.25 [facility] Comment on above: Performed By: #### H EMDF, PT, BMP3M, PHOS3, MG3, CK3 #### [facility] [address] [place], [place] #### VD25H #### [facility] [address] [place] [address] GFR/1.73 sq M predicted among blacks MDRD vol rate/area (S/P/Bld) mL/min/{1.73_m2} Normal >60 [facility] Comment on above: Performed By: #### H EMDF, PT, BMP3M, PHOS3, MG3, CK3 #### [address] [place] [address] #### VD25H #### [facility] [address] [place] [address] GFR/1.73 sq M predicted among non-blacks MDRD vol rate/area (S/P/Bld) mL/min/{1.73_m2} Normal >60 [facility] Comment on above: Result Comment: Sour ce- MDRD equation with creatinine calibration to IDMS(NKDEP) eGFR not recommended for drug dose adjustment Performed By: #### H EMDF, PT, BMP3M, PHOS3, MG3, CK3 #### [address] [address] [place], [place] #### VD25H #### [facility] [address] [place] [address] Urea nitrogen mass conc 17 mg/dL Normal 7-20 [facility] Comment on above: Performed By: #### H EMDF, PT, BMP3M, PHOS3, MG3, CK3 #### [address] [address] [place], [place] #### VD25H #### [facility] [address] [place] [address] Chloride molar conc 105 mmol/L Normal 98-107 [facility] Comment on above: Performed By: #### H EMDF, PT, BMP3M, PHOS3, MG3, CK3 #### [address] #### VD25H #### [facility] [address] [place] [address] Potassium molar conc 3.8 mmol/L Normal 3.5-5.1 [facility] Comment on above: Performed By: #### H EMDF, PT, BMP3M, PHOS3, MG3, CK3 #### [address] [address] [place] [address] #### VD25H #### [facility] [address] [place] [address] Sodium molar conc 139 mmol/L Normal 135-145 [facility] Comment on above: Performed By: #### H EMDF, PT, BMP3M, PHOS3, MG3, CK3 #### [facility] [address] [place] #### VD25H #### [facility] [address] [place] [address] CR Chest Portableon 07-14-19 19 CR Chest Portable Patient Name: KATHYA HOOPER Diagnostic Radiology Exam Date/Time 07/13/2018 06:05:45 EDT Exam CR Chest Portable Ordering Physician MARIA EUGENIA PEREZ Accession Number [id number] CPT4 Codes 19096 () Reason For Exam ETT placement Report [...] Transcribed Date and Time: 07/13/2018 6:33 Normal [facility] Calcium,Ionizedon 07-13-2018 Ionized Ca,Measured 4.10 mg/dL Low 4.30-5.20 [facility] Comment on above: Performed By: #### H EMDF, PT, BMP3M, PHOS3, MG3, CK3 #### [address] [place], [place] #### VD25H #### [facility] [address] [place] [address] pH, Ionized Calcium 7.40 Normal 7.31-7.46 [facility] Comment on above: Performed By: #### H EMDF, PT, BMP3M, PHOS3, MG3, CK3 #### [address] #### VD25H #### [facility] [address] [place] [address] Hemogram w/ Autodiffon 07-13 Abs Baso Cnt 0.0 10*3/uL Normal 0.0-0.2 [facility] Comment on above: Performed By: #### H EMDF, PT, BMP3M, PHOS3, MG3, CK3 #### [address] #### VD25H #### [facility] [address] [place] [address] Abs Neutrophile Cnt 11.2 10*3/uL High 1.8-7.0 [facility] Comment on above: Performed By: #### H EMDF, PT, BMP3M, PHOS3, MG3, CK3 #### [address] [place], [place] #### VD25H #### [facility] [address] [place] [address] Basophils/100 WBC (Bld) 0.3 % Normal 0.0-2.0 [facility] Comment on above: Performed By: #### H EMDF, PT, BMP3M, PHOS3, MG3, CK3 #### [address] #### VD25H #### [place] [address] [place] [address] Eosinophils #/vol (Bld) 0.2 10*3/uL Normal 0.0-0.5 [facility] Comment on above: Performed By: #### H EMDF, PT, BMP3M, PHOS3, MG3, CK3 #### [address] #### VD25H #### [facility] [address] [place] [address] Eosinophils/100 WBC (Bld) 1.1 % Normal 1.0-6.0 [facility] Comment on above: Performed By: #### H EMDF, PT, BMP3M, PHOS3, MG3, CK3 #### [address] #### VD25H #### [facility] [address] [place] [address] Erythrocyte distribution width Ratio (RBC) 13.9 % Normal 11.5-14.5 [facility] Comment on above: Performed By: #### H EMDF, PT, BMP3M, PHOS3, MG3, CK3 #### [address] #### VD25H #### [facility] [address] [place] [address] Granulocytes/100 WBC (Bld) 82.2 % High 40.0-80.0 [facility] Comment on above: Performed By: #### H EMDF, PT, BMP3M, PHOS3, MG3, CK3 #### [address] #### VD25H #### [facility] [address] [place] [address] Hematocrit Volume Fraction (Bld) 36.7 % Low 40.0-52.0 [facility] Comment on above: Performed By: #### H EMDF, PT, BMP3M, PHOS3, MG3, CK3 #### [address] #### VD25H #### [place] [address] [place] [address] Hemoglobin mass conc (Bld) 12.6 g/dL Low 13.0-18.0 [facility] Comment on above: Performed By: #### H EMDF, PT, BMP3M, PHOS3, MG3, CK3 #### [address] [address] [place], [place] #### VD25H #### [facility] [address] [place] [address] Lymphocytes #/vol (Bld) 1.1 10*3/uL Normal 1.0-4.3 [facility] Comment on above: Performed By: #### H EMDF, PT, BMP3M, PHOS3, MG3, CK3 #### [address] #### VD25H #### [place] [address] [place] [address] Lymphocytes/100 WBC (Bld) 8.2 % Low 20.0-40.0 [facility] Comment on above: Performed By: #### H EMDF, PT, BMP3M, PHOS3, MG3, CK3 #### [address] #### VD25H #### [place] [address] [place] [address] MCH Entitic mass (RBC) 29.6 pg Normal 26.0-34.0 [facility] Comment on above: Performed By: #### H EMDF, PT, BMP3M, PHOS3, MG3, CK3 #### [address] #### VD25H #### [place] [address] [place] [address] MCHC mass conc (RBC) 34.4 % Normal 32.0-36.0 [facility] Comment on above: Performed By: #### H EMDF, PT, BMP3M, PHOS3, MG3, CK3 #### [address] [place] #### VD25H #### [facility] [address] [place] [address] MCV Entitic volume (RBC) 86.2 fL Normal 80.0-98.0 [facility] Comment on above: Performed By: #### H EMDF, PT, BMP3M, PHOS3, MG3, CK3 #### [address] #### VD25H #### [facility] [address] [place] [address] Monocytes #/vol (Bld) 1.1 10*3/uL High 0.0-0.8 [facility] Comment on above: Performed By: #### H EMDF, PT, BMP3M, PHOS3, MG3, CK3 #### [address] #### VD25H #### [facility] [address] [place] [address] Monocytes/100 WBC (Bld) 8.2 % Normal 2.0-10.0 [facility] Comment on above: Performed By: #### H EMDF, PT, BMP3M, PHOS3, MG3, CK3 #### [address] #### VD25H #### [facility] [address] [place] [address] Platelet mean volume Entitic volume (Bld) 8.1 fL Normal 7.4-10.4 [facility] Comment on above: Performed By: #### H EMDF, PT, BMP3M, PHOS3, MG3, CK3 #### [address] #### VD25H #### [facility] [address] [place] [address] Platelets #/vol (Bld) 194 10*3/uL Normal 140-440 [facility] Comment on above: Performed By: #### H EMDF, PT, BMP3M, PHOS3, MG3, CK3 #### [facility] [address] [place], [place] #### VD25H #### [facility] [address] [place] [address] RBC #/vol (Bld) 4.26 10*6/uL Low 4.40-5.90 [facility] Comment on above: Performed By: #### H EMDF, PT, BMP3M, PHOS3, MG3, CK3 #### [address] #### VD25H #### [facility] [address] [place] [address] WBC #/vol (Bld) 13.7 10*3/uL High 3.6-10.7 [facility] Comment on above: Performed By: #### H EMDF, PT, BMP3M, PHOS3, MG3, CK3 #### [address] #### VD25H #### [facility] [address] [place] [address] Arterial Blood Gaseson 07-12 CO2 molar conc 26.4 mmol/L Normal 23.0-27.0 [facility] Comment on above: Performed By: #### H EMDF, PT, BMP3M, PHOS3, MG3, CK3 #### [address] #### VD25H #### [facility] [address] [place] [address] HCO3 molar conc (Bld) 25.2 mmol/L High 21.0-25.0 [facility] Comment on above: Performed By: #### H EMDF, PT, BMP3M, PHOS3, MG3, CK3 #### [address] #### VD25H #### [facility] [address] [place] [address] Hemoglobin mass conc (Bld) 13.9 g/dL Normal [facility] Comment on above: Performed By: #### H EMDF, PT, BMP3M, PHOS3, MG3, CK3 #### [facility] [address] [place] #### VD25H #### [facility] [address] [place] [address] Oxygen ppres (Bld) 83.9 mm[Hg] Normal 80.0-100.0 [facility] Comment on above: Performed By: #### H EMDF, PT, BMP3M, PHOS3, MG3, CK3 #### [address] #### VD25H #### [facility] [address] [place] [address] Oxygen saturation in Blood 96.3 % Normal 95.0-100.0 [facility] Comment on above: Performed By: #### H EMDF, PT, BMP3M, PHOS3, MG3, CK3 #### [address] #### VD25H #### [facility] [address] [place] [address] pCO2 38.2 mm[Hg] Normal 35.0-45.0 [facility] Comment on above: Performed By: #### H EMDF, PT, BMP3M, PHOS3, MG3, CK3 #### [address] #### VD25H #### [facility] [address] [place] [address] pH (Bld) 7.437 Normal 7.350-7.450 [facility] Comment on above: Performed By: #### H EMDF, PT, BMP3M, PHOS3, MG3, CK3 #### [address] [place], [place] #### VD25H #### [facility] [address] [place] [address] Std Base Excess 1.1 mmol/L Normal -3.0-3.0 [facility] Comment on above: Performed By: #### H EMDF, PT, BMP3M, PHOS3, MG3, CK3 #### [address] [place], [place] #### VD25H #### [facility] [address] [place] [address] FIO2 50% Normal [facility] Comment on above: Performed By: #### H EMDF, PT, BMP3M, PHOS3, MG3, CK3 #### [address] [place] #### VD25H #### [facility] [address] [place] [address] CO2 molar conc 27.2 mmol/L High 23.0-27.0 [facility] Comment on above: Performed By: #### H EMDF, PT, BMP3M, PHOS3, MG3, CK3 #### [address] [place] #### VD25H #### [facility] [address] [place] [address] HCO3 molar conc (Bld) 26.1 mmol/L High 21.0-25.0 [facility] Comment on above: Performed By: #### H EMDF, PT, BMP3M, PHOS3, MG3, CK3 #### [address] [place] #### VD25H #### [facility] [address] [place] [address] Hemoglobin mass conc (Bld) 14.7 g/dL Normal [facility]Only [facility] Comment on above: Performed By: #### H EMDF, PT, BMP3M, PHOS3, MG3, CK3 #### [address] [place], [place] #### VD25H #### [facility] [address] [place] [address] Oxygen ppres (Bld) 125.7 mm[Hg] High 80.0-100.0 [facility] Comment on above: Performed By: #### H EMDF, PT, BMP3M, PHOS3, MG3, CK3 #### [address] [place] #### VD25H #### [facility] [address] [place] [address] Oxygen saturation in Blood 98.6 % Normal 95.0-100.0 [facility] Comment on above: Performed By: #### H EMDF, PT, BMP3M, PHOS3, MG3, CK3 #### [address] [facility], [place] #### VD25H #### [facility] [address] [place] [address] pCO2 37.5 mm[Hg] Normal 35.0-45.0 [facility] Comment on above: Performed By: #### H EMDF, PT, BMP3M, PHOS3, MG3, CK3 #### [address] [facility], [place] #### VD25H #### [facility] [address] [place] [address] pH (Bld) 7.460 High 7.350-7.450 [facility] Comment on above: Performed By: #### H EMDF, PT, BMP3M, PHOS3, MG3, CK3 #### [address] #### VD25H #### [facility] [address] [place] [address] Std Base Excess 2.4 mmol/L Normal -3.0-3.0 [facility] Comment on above: Performed By: #### H EMDF, PT, BMP3M, PHOS3, MG3, CK3 #### [address] [facility] [place] #### VD25H #### [facility] [address] [place] [address] FIO2 62.5 Normal [facility] Comment on above: Performed By: #### H EMDF, PT, BMP3M, PHOS3, MG3, CK3 #### [address] #### VD25H #### [facility] [address] [place] [address] Basic Metabolic Panelon 06-29 Anion gap molar conc 6 Normal [facility] Comment on above: Performed By: #### H EMDF, PT, BMP3M, PHOS3, MG3, CK3 #### [address] [place] #### VD25H #### [facility] [address] [place] [address] Calcium mass conc 8.0 mg/dL Low 8.4-10.4 [facility] Comment on above: Performed By: #### H EMDF, PT, BMP3M, PHOS3, MG3, CK3 #### [address] #### VD25H #### [facility] [address] [place] [address] CO2 molar conc 28 mmol/L Normal 22-30 [facility] Comment on above: Performed By: #### H EMDF, PT, BMP3M, PHOS3, MG3, CK3 #### [address] #### VD25H #### [facility] [address] [place] [address] Creatinine mass conc 0.62 mg/dL Normal 0.52-1.25 [facility] Comment on above: Performed By: #### H EMDF, PT, BMP3M, PHOS3, MG3, CK3 #### [address] #### VD25H #### [facility] [address] [place] [address] GFR/1.73 sq M predicted among blacks MDRD vol rate/area (S/P/Bld) mL/min/{1.73_m2} Normal >60 [facility] Comment on above: Performed By: #### H EMDF, PT, BMP3M, PHOS3, MG3, CK3 #### [facility] [address] [place] #### VD25H #### [facility] [address] [place] [address] GFR/1.73 sq M predicted among non-blacks MDRD vol rate/area (S/P/Bld) mL/min/{1.73_m2} Normal >60 [facility] Comment on above: Result Comment: Sour ce- MDRD equation with creatinine calibration to IDMS(NKDEP) eGFR not recommended for drug dose adjustment Performed By: #### H EMDF, PT, BMP3M, PHOS3, MG3, CK3 #### [address] [facility], [place] #### VD25H #### [facility] [address] [place] [address] Glucose mass conc 125 mg/dL High 70-100 [facility] Comment on above: Performed By: #### H EMDF, PT, BMP3M, PHOS3, MG3, CK3 #### [address] [facility] [place] #### VD25H #### [facility] [address] [place] [address] Urea nitrogen mass conc 12 mg/dL Normal 7-20 [facility] Comment on above: Performed By: #### H EMDF, PT, BMP3M, PHOS3, MG3, CK3 #### [facility] [address] [facility] [place] #### VD25H #### [facility] [address] [place] [address] Chloride molar conc 104 mmol/L Normal 98-107 [facility] Comment on above: Performed By: #### H EMDF, PT, BMP3M, PHOS3, MG3, CK3 #### [address] [place] #### VD25H #### [facility] [address] [place] [address] Potassium molar conc 3.6 mmol/L Normal 3.5-5.1 [facility] Comment on above: Performed By: #### H EMDF, PT, BMP3M, PHOS3, MG3, CK3 #### [facility] [address] [place] [address] #### VD25H #### [facility] [address] [place] [address] Sodium molar conc 138 mmol/L Normal 135-145 [facility] Comment on above: Performed By: #### H EMDF, PT, BMP3M, PHOS3, MG3, CK3 #### [facility] [address] [place] [address] #### VD25H #### [facility] [address] [place] [address] CR Chest Portableon 07-13-19 19 CR Chest Portable Patient Name: KATHYA HOOPER Diagnostic Radiology Exam Date/Time 07/12/2018 10:18:11 EDT Exam CR Chest Portable Ordering Physician MARIA EUGENIA PEREZ Accession Number [id number] CPT4 Codes 05050 () Reason For Exam ETT Placement Report [...] Transcribed Date and Time: 07/12/2018 1:21 Normal [facility] CR Chest Portable Patient Name: KATHYA HOOPER Diagnostic Radiology Exam Date/Time 07/12/2018 06:19:03 EDT Exam CR Chest Portable Ordering Physician MD NATE, [facility] Accession Number [id number] CPT4 Codes 13183 () Reason For Exam dyspnea Report PORTABLE [...] Transcribed Date and Time: 07/12/2018 8:01 Normal [facility] Hemogram w/ Autodiffon 07-12 Abs Baso Cnt 0.0 10*3/uL Normal 0.0-0.2 [facility] Comment on above: Performed By: #### H EMDF, PT, BMP3M, PHOS3, MG3, CK3 #### [facility] [address] [place], [place] #### VD25H #### [facility] [address] [place] [address] Abs Neutrophile Cnt 10.2 10*3/uL High 1.8-7.0 [facility] Comment on above: Performed By: #### H EMDF, PT, BMP3M, PHOS3, MG3, CK3 #### [address] [address] [place], [place] #### VD25H #### [facility] [address] [place] [address] Basophils/100 WBC (Bld) 0.4 % Normal 0.0-2.0 [facility] Comment on above: Performed By: #### H EMDF, PT, BMP3M, PHOS3, MG3, CK3 #### [address] [address] [place] #### VD25H #### [facility] [address] [place] [address] Eosinophils #/vol (Bld) 0.1 10*3/uL Normal 0.0-0.5 [facility] Comment on above: Performed By: #### H EMDF, PT, BMP3M, PHOS3, MG3, CK3 #### [address] [place] #### VD25H #### [facility] [address] [place] [address] Eosinophils/100 WBC (Bld) 0.6 % Low 1.0-6.0 [facility] Comment on above: Performed By: #### H EMDF, PT, BMP3M, PHOS3, MG3, CK3 #### [address] #### VD25H #### [facility] [address] [place] [address] Erythrocyte distribution width Ratio (RBC) 13.5 % Normal 11.5-14.5 [facility] Comment on above: Performed By: #### H EMDF, PT, BMP3M, PHOS3, MG3, CK3 #### [facility] [address] [place], [place] #### VD25H #### [facility] [address] [place] [address] Granulocytes/100 WBC (Bld) 84.7 % High 40.0-80.0 [facility] Comment on above: Performed By: #### H EMDF, PT, BMP3M, PHOS3, MG3, CK3 #### [address] [place] #### VD25H #### [facility] [address] [place] [address] Hematocrit Volume Fraction (Bld) 39.7 % Low 40.0-52.0 [facility] Comment on above: Performed By: #### H EMDF, PT, BMP3M, PHOS3, MG3, CK3 #### [address] #### VD25H #### [facility] [address] [place] [address] Hemoglobin mass conc (Bld) 13.5 g/dL Normal 13.0-18.0 [facility] Comment on above: Performed By: #### H EMDF, PT, BMP3M, PHOS3, MG3, CK3 #### [address] [place], [place] #### VD25H #### [facility] [address] [place] [address] Lymphocytes #/vol (Bld) 0.9 10*3/uL Low 1.0-4.3 [facility] Comment on above: Performed By: #### H EMDF, PT, BMP3M, PHOS3, MG3, CK3 #### [address] [address] [place], [place] #### [id number] #### [facility] [address] [place] [address] Lymphocytes/100 WBC (Bld) 7.6 % Low 20.0-40.0 [facility] Comment on above: Performed By: #### H EMDF, PT, BMP3M, PHOS3, MG3, CK3 #### [address] #### [id number] #### [facility] [address] [place] [address] MCH Entitic mass (RBC) 29.6 pg Normal 26.0-34.0 [facility] Comment on above: Performed By: #### H EMDF, PT, BMP3M, PHOS3, MG3, CK3 #### [address] #### VD25H #### [place] [address] [place] [address] MCHC mass conc (RBC) 34.1 % Normal 32.0-36.0 [facility] Comment on above: Performed By: #### H EMDF, PT, BMP3M, PHOS3, MG3, CK3 #### [address] #### VD25H #### [facility] [address] [place] [address] MCV Entitic volume (RBC) 87.0 fL Normal 80.0-98.0 [facility] Comment on above: Performed By: #### H EMDF, PT, BMP3M, PHOS3, MG3, CK3 #### [address] #### VD25H #### [facility] [address] [place] [address] Monocytes #/vol (Bld) 0.8 10*3/uL Normal 0.0-0.8 [facility] Comment on above: Performed By: #### H EMDF, PT, BMP3M, PHOS3, MG3, CK3 #### [address] #### VD25H #### [facility] [address] [place] [address] Monocytes/100 WBC (Bld) 6.7 % Normal 2.0-10.0 [facility] Comment on above: Performed By: #### H EMDF, PT, BMP3M, PHOS3, MG3, CK3 #### [place] [address] [address] [place], [place] #### VD25H #### [facility] [address] [place] [address] Platelet mean volume Entitic volume (Bld) 8.4 fL Normal 7.4-10.4 [facility] Comment on above: Performed By: #### H EMDF, PT, BMP3M, PHOS3, MG3, CK3 #### [place] [address] [place], [place] #### VD25H #### [facility] [address] [place] [address] Platelets #/vol (Bld) 185 10*3/uL Normal 140-440 [facility] Comment on above: Performed By: #### H EMDF, PT, BMP3M, PHOS3, MG3, CK3 #### [place] [address] [address] [place], [place] #### VD25H #### [facility] [address] [place] [address] RBC #/vol (Bld) 4.57 10*6/uL Normal 4.40-5.90 [facility] Comment on above: Performed By: #### H EMDF, PT, BMP3M, PHOS3, MG3, CK3 #### [address] #### VD25H #### [facility] [address] [place] [address] WBC #/vol (Bld) 12.1 10*3/uL High 3.6-10.7 [facility] Comment on above: Performed By: #### H EMDF, PT, BMP3M, PHOS3, MG3, CK3 #### [facility] [address] [place] [address] #### VD25H #### [facility] [address] [place] [address] VL Venous Duplex US Lower Ex t Bilateralon 07-12-2018 VL Venous Duplex US Lower Ext Bilateral Patient Name: KATHYA HOOPER Ultrasound Exam Date/Time 07/12/2018 17:20:46 EDT Exam VL Venous Duplex US Lower Ext Bilateral Ordering Physician MD MOISÉS, JOSHUA Accession Number [id number] CPT4 Codes 15592 () Reason For Exam leg swelling Report [facility] --- Lower Extremity Venous Duplex Report Patient Name: Kathya Hooper : 1955 Study Date: 07/12/2018 W (63yrs) Age: 63 Account: [id number] Gender: M Loc: [id number] BP: Ordering: Joshua Avelar Technologist: Ordering Physician: Joshua Avelar Dinkey Motor Operator: Elizabeth Sanford RVT Interpreting Physician: Krysta Arora --- Location: [facility] --- INDICATIONS: Edema. bilateral calves. --- [...] performed. The images were obtained using a [employer] E9 vascular ultrasound machine. --- VENOUS FLOW [...] ---------+-------+--- --+ Electronically signed by: Krysta Arora [id number] Final Dictated: 07/13/2018 8:45 am Dictating Physician: KRYSTA ARORA Signed Date and Time: 07/13/2018 8:45 am Signed by: KRYSTA ARORA Normal [facility] Basic Metabolic Panelon 06-29 Calcium mass conc 7.8 mg/dL Low 8.4-10.4 [facility] Comment on above: Performed By: #### H EMDF, PT, BMP3M, PHOS3, MG3, CK3 #### [facility] [address] [place] [id number] #### VD25H #### [facility] [address] [place] [address] Anion gap molar conc 4 Normal [facility] Comment on above: Performed By: #### H EMDF, PT, BMP3M, PHOS3, MG3, CK3 #### [facility] [address] [facility], [place] #### VD25H #### [facility] [address] [place] [address] CO2 molar conc 26 mmol/L Normal 22-30 [facility] Comment on above: Performed By: #### H EMDF, PT, BMP3M, PHOS3, MG3, CK3 #### [place] [address] [address] [facility], [place] #### VD25H #### [facility] [address] [place] [address] Glucose mass conc 118 mg/dL High 70-100 [facility] Comment on above: Performed By: #### H EMDF, PT, BMP3M, PHOS3, MG3, CK3 #### [place] [address] [address] [facility] [place] #### VD25H #### [facility] [address] [place] [address] Urea nitrogen mass conc 19 mg/dL Normal 7-20 [facility] Comment on above: Performed By: #### H EMDF, PT, BMP3M, PHOS3, MG3, CK3 #### [place] [address] [address] [facility] [place] #### VD25H #### [facility] [address] [place] [address] Creatinine mass conc 0.74 mg/dL Normal 0.52-1.25 [facility] Comment on above: Performed By: #### H EMDF, PT, BMP3M, PHOS3, MG3, CK3 #### [place] [address] [address] [facility] [place] #### VD25H #### [facility] [address] [place] [address] GFR/1.73 sq M predicted among blacks MDRD vol rate/area (S/P/Bld) mL/min/{1.73_m2} Normal >60 [facility] Comment on above: Performed By: #### H EMDF, PT, BMP3M, PHOS3, MG3, CK3 #### [address] #### VD25H #### [facility] [address] [place] [address] GFR/1.73 sq M predicted among non-blacks MDRD vol rate/area (S/P/Bld) mL/min/{1.73_m2} Normal >60 [facility] Comment on above: Result Comment: Sour ce- MDRD equation with creatinine calibration to IDMS(NKDEP) eGFR not recommended for drug dose adjustment Performed By: #### H EMDF, PT, BMP3M, PHOS3, MG3, CK3 #### [address] #### VD25H #### [facility] [address] [place] [address] Chloride molar conc 112 mmol/L High 98-107 [facility] Comment on above: Performed By: #### H EMDF, PT, BMP3M, PHOS3, MG3, CK3 #### [address] #### VD25H #### [facility] [address] [place] [address] Potassium molar conc 3.8 mmol/L Normal 3.5-5.1 [facility] Comment on above: Performed By: #### H EMDF, PT, BMP3M, PHOS3, MG3, CK3 #### [address] #### VD25H #### [facility] [address] [place] [address] Sodium molar conc 141 mmol/L Normal 135-145 [facility] Comment on above: Performed By: #### H EMDF, PT, BMP3M, PHOS3, MG3, CK3 #### [facility] [address] [place] [address] #### VD25H #### [facility] [address] [place] [address] CR Chest 1 View Frontalon CR Chest 1 View Frontal Patient Name: KATHYA FELDER Diagnostic Radiology Exam Date/Time 07/11/2018 06:36:48 EDT Exam CR Chest 1 View Frontal Ordering Physician MD MOISÉS, JOSHUA Accession Number [id number] CPT4 Codes 17181 () Reason For Exam dyspnea Report EXAM [...] Transcribed Date and Time: 07/11/2018 7:05 Normal [facility] Hemogram w/ Autodiffon 07-11 Abs Baso Cnt 0.0 10*3/uL Normal 0.0-0.2 [facility] Comment on above: Performed By: #### H EMDF, PT, BMP3M, PHOS3, MG3, CK3 #### [facility] [address] [place], [place] #### VD25H #### [facility] [address] [place] [address] Abs Neutrophile Cnt 8.8 10*3/uL High 1.8-7.0 [facility] Comment on above: Performed By: #### H EMDF, PT, BMP3M, PHOS3, MG3, CK3 #### [address] [place], [place] #### VD25H #### [facility] [address] [place] [address] Basophils/100 WBC (Bld) 0.4 % Normal 0.0-2.0 [facility] Comment on above: Performed By: #### H EMDF, PT, BMP3M, PHOS3, MG3, CK3 #### [address] #### VD25H #### [facility] [address] [place] [address] Eosinophils #/vol (Bld) 0.0 10*3/uL Normal 0.0-0.5 [facility] Comment on above: Performed By: #### H EMDF, PT, BMP3M, PHOS3, MG3, CK3 #### [address] #### VD25H #### [facility] [address] [place] [address] Eosinophils/100 WBC (Bld) 0.4 % Low 1.0-6.0 [facility] Comment on above: Performed By: #### H EMDF, PT, BMP3M, PHOS3, MG3, CK3 #### [address] #### VD25H #### [facility] [address] [place] [address] Erythrocyte distribution width Ratio (RBC) 13.7 % Normal 11.5-14.5 [facility] Comment on above: Performed By: #### H EMDF, PT, BMP3M, PHOS3, MG3, CK3 #### [facility] [address] [place] #### VD25H #### [facility] [address] [place] [address] Granulocytes/100 WBC (Bld) 80.6 % High 40.0-80.0 [facility] Comment on above: Performed By: #### H EMDF, PT, BMP3M, PHOS3, MG3, CK3 #### [place] [address] [address] [place], [place] #### VD25H #### [facility] [address] [place] [address] Hematocrit Volume Fraction (Bld) 32.8 % Low 40.0-52.0 [facility] Comment on above: Performed By: #### H EMDF, PT, BMP3M, PHOS3, MG3, CK3 #### [place] [address] [place] #### VD25H #### [facility] [address] [place] [address] Hemoglobin mass conc (Bld) 11.4 g/dL Low 13.0-18.0 [facility] Comment on above: Performed By: #### H EMDF, PT, BMP3M, PHOS3, MG3, CK3 #### [place] [address] [place], [place] #### VD25H #### [facility] [address] [place] [address] Lymphocytes #/vol (Bld) 1.3 10*3/uL Normal 1.0-4.3 [facility] Comment on above: Performed By: #### H EMDF, PT, BMP3M, PHOS3, MG3, CK3 #### [address] [place], [place] #### VD25H #### [facility] [address] [place] [address] Lymphocytes/100 WBC (Bld) 11.5 % Low 20.0-40.0 [facility] Comment on above: Performed By: #### H EMDF, PT, BMP3M, PHOS3, MG3, CK3 #### [address] [place], [place] #### VD25H #### [facility] [address] [place] [address] MCH Entitic mass (RBC) 30.2 pg Normal 26.0-34.0 [facility] Comment on above: Performed By: #### H EMDF, PT, BMP3M, PHOS3, MG3, CK3 #### [address] [place], [place] #### VD25H #### [facility] [address] [place] [address] MCHC mass conc (RBC) 34.7 % Normal 32.0-36.0 [facility] Comment on above: Performed By: #### H EMDF, PT, BMP3M, PHOS3, MG3, CK3 #### [address] #### VD25H #### [facility] [address] [place] [address] MCV Entitic volume (RBC) 86.9 fL Normal 80.0-98.0 [facility] Comment on above: Performed By: #### H EMDF, PT, BMP3M, PHOS3, MG3, CK3 #### [address] #### VD25H #### [facility] [address] [place] [address] Monocytes #/vol (Bld) 0.8 10*3/uL Normal 0.0-0.8 [facility] Comment on above: Performed By: #### H EMDF, PT, BMP3M, PHOS3, MG3, CK3 #### [address] #### VD25H #### [facility] [address] [place] [address] Monocytes/100 WBC (Bld) 7.1 % Normal 2.0-10.0 [facility] Comment on above: Performed By: #### H EMDF, PT, BMP3M, PHOS3, MG3, CK3 #### [place] [address] [address] [place] #### VD25H #### [facility] [address] [place] [address] Platelet mean volume Entitic volume (Bld) 8.8 fL Normal 7.4-10.4 [facility] Comment on above: Performed By: #### H EMDF, PT, BMP3M, PHOS3, MG3, CK3 #### [address] [place], [place] #### VD25H #### [facility] [address] [place] [address] Platelets #/vol (Bld) 158 10*3/uL Normal 140-440 [facility] Comment on above: Performed By: #### H EMDF, PT, BMP3M, PHOS3, MG3, CK3 #### [place] [address] [place] #### VD25H #### [facility] [address] [place] [address] RBC #/vol (Bld) 3.78 10*6/uL Low 4.40-5.90 [facility] Comment on above: Performed By: #### H EMDF, PT, BMP3M, PHOS3, MG3, CK3 #### [place] [address] [place] #### VD25H #### [facility] [address] [place] [address] WBC #/vol (Bld) 10.9 10*3/uL High 3.6-10.7 [facility] Comment on above: Performed By: #### H EMDF, PT, BMP3M, PHOS3, MG3, CK3 #### [address] #### VD25H #### [facility] [address] [place] [address] Magnesiumon 07-11-2018 Magnesium mass conc 2.3 mg/dL Normal 1.6-2.3 [facility] Comment on above: Performed By: #### H EMDF, PT, BMP3M, PHOS3, MG3, CK3 #### [facility] [address] [place] #### VD25H #### [facility] [address] [place] [address] Phosphoruson 07-11-2018 Phosphate mass conc 2.8 mg/dL Normal 2.5-4.5 [facility] Comment on above: Performed By: #### H EMDF, PT, BMP3M, PHOS3, MG3, CK3 #### [place] [address] [place] #### VD25H #### [facility] [address] [place] [address] Basic Metabolic Panelon 06-29 Calcium mass conc 8.9 mg/dL Normal 8.4-10.4 [facility] Comment on above: Performed By: #### H EMDF, PT, BMP3M, PHOS3, MG3, CK3 #### [place] [address] [place] #### VD25H #### [facility] [address] [place] [address] Glucose mass conc 133 mg/dL High 70-100 [facility] Comment on above: Performed By: #### H EMDF, PT, BMP3M, PHOS3, MG3, CK3 #### [place] [address] [place] #### VD25H #### [facility] [address] [place] [address] Anion gap molar conc 4 Normal [facility] Comment on above: Performed By: #### H EMDF, PT, BMP3M, PHOS3, MG3, CK3 #### [place] [address] [place] #### VD25H #### [facility] [address] [place] [address] CO2 molar conc 27 mmol/L Normal 22-30 [facility] Comment on above: Performed By: #### H EMDF, PT, BMP3M, PHOS3, MG3, CK3 #### [address] [address] #### VD25H #### [facility] [address] [place] [address] Creatinine mass conc 0.69 mg/dL Normal 0.52-1.25 [facility] Comment on above: Performed By: #### H EMDF, PT, BMP3M, PHOS3, MG3, CK3 #### [address] #### VD25H #### [place] [address] [place] [address] GFR/1.73 sq M predicted among blacks MDRD vol rate/area (S/P/Bld) mL/min/{1.73_m2} Normal >60 [facility] Comment on above: Performed By: #### H EMDF, PT, BMP3M, PHOS3, MG3, CK3 #### [address] #### VD25H #### [place] [address] [place] [address] GFR/1.73 sq M predicted among non-blacks MDRD vol rate/area (S/P/Bld) mL/min/{1.73_m2} Normal >60 [facility] Comment on above: Result Comment: Sour ce- MDRD equation with creatinine calibration to IDMS(NKDEP) eGFR not recommended for drug dose adjustment Performed By: #### H EMDF, PT, BMP3M, PHOS3, MG3, CK3 #### [address] #### VD25H #### [place] [address] [place] [address] Urea nitrogen mass conc 16 mg/dL Normal 7-20 [facility] Comment on above: Performed By: #### H EMDF, PT, BMP3M, PHOS3, MG3, CK3 #### [facility] [address] [facility] [place] #### VD25H #### [facility] [address] [place] [address] Potassium molar conc 4.1 mmol/L Normal 3.5-5.1 [facility] Comment on above: Performed By: #### H EMDF, PT, BMP3M, PHOS3, MG3, CK3 #### [place] [address] [address] [facility] [place] #### VD25H #### [facility] [address] [place] [address] Sodium molar conc 142 mmol/L Normal 135-145 [facility] Comment on above: Performed By: #### H EMDF, PT, BMP3M, PHOS3, MG3, CK3 #### [place] [address] [address] [facility] [place] #### VD25H #### [facility] [address] [place] [address] Chloride molar conc 110 mmol/L High 98-107 [facility] Comment on above: Performed By: #### H EMDF, PT, BMP3M, PHOS3, MG3, CK3 #### [place] [address] [address] [facility] [place] #### VD25H #### [facility] [address] [place] [address] CKon 07-10-2018 CK enzyme act/vol 1291 U/L High 30-170 [facility] Comment on above: Performed By: #### H EMDF, PT, BMP3M, PHOS3, MG3, CK3 #### [facility] [address] [facility] #### VD25H #### [facility] [address] [place] [address] CK enzyme act/vol 1382 U/L High 30-170 [facility] Comment on above: Performed By: #### H EMDF, PT, BMP3M, PHOS3, MG3, CK3 #### [facility] [address] [place] [address] #### VD25H #### [facility] [address] [place] [address] CR Chest 1 View Frontalon CR Chest 1 View Frontal Patient Name: KATHYA FELDER Diagnostic Radiology Exam Date/Time 07/10/2018 06:38:06 EDT Exam CR Chest 1 View Frontal Ordering Physician MD NATE, [facility] Accession Number [id number] CPT4 Codes 01578 () Reason For Exam dyspnea Report EXAMINATION: [...] Transcribed Date and Time: 07/10/2018 8:57 Normal [facility] Hemogram w/ Autodiffon 07-10 Abs Baso Cnt 0.0 10*3/uL Normal 0.0-0.2 [facility] Comment on above: Performed By: #### H EMDF, PT, BMP3M, PHOS3, MG3, CK3 #### [place] [address] [address] [place] #### VD25H #### [facility] [address] [place] [address] Abs Neutrophile Cnt 12.2 10*3/uL High 1.8-7.0 [facility] Comment on above: Performed By: #### H EMDF, PT, BMP3M, PHOS3, MG3, CK3 #### [place] [address] [place] #### VD25H #### [facility] [address] [place] [address] Basophils/100 WBC (Bld) 0.3 % Normal 0.0-2.0 [facility] Comment on above: Performed By: #### H EMDF, PT, BMP3M, PHOS3, MG3, CK3 #### [address] #### VD25H #### [facility] [address] [place] [address] Eosinophils #/vol (Bld) 0.0 10*3/uL Normal 0.0-0.5 [facility] Comment on above: Performed By: #### H EMDF, PT, BMP3M, PHOS3, MG3, CK3 #### [address] #### VD25H #### [facility] [address] [place] [address] Eosinophils/100 WBC (Bld) 0.0 % Low 1.0-6.0 [facility] Comment on above: Performed By: #### H EMDF, PT, BMP3M, PHOS3, MG3, CK3 #### [address] #### VD25H #### [facility] [address] [place] [address] Erythrocyte distribution width Ratio (RBC) 13.9 % Normal 11.5-14.5 [facility] Comment on above: Performed By: #### H EMDF, PT, BMP3M, PHOS3, MG3, CK3 #### [address] #### VD25H #### [facility] [address] [place] [address] Granulocytes/100 WBC (Bld) 89.5 % High 40.0-80.0 [facility] Comment on above: Performed By: #### H EMDF, PT, BMP3M, PHOS3, MG3, CK3 #### [address] [place], [place] #### VD25H #### [facility] [address] [place] [address] Hematocrit Volume Fraction (Bld) 36.0 % Low 40.0-52.0 [facility] Comment on above: Performed By: #### H EMDF, PT, BMP3M, PHOS3, MG3, CK3 #### [address] #### VD25H #### [facility] [address] [place] [address] Hemoglobin mass conc (Bld) 12.3 g/dL Low 13.0-18.0 [facility] Comment on above: Performed By: #### H EMDF, PT, BMP3M, PHOS3, MG3, CK3 #### [address] #### VD25H #### [facility] [address] [place] [address] Lymphocytes #/vol (Bld) 0.6 10*3/uL Low 1.0-4.3 [facility] Comment on above: Performed By: #### H EMDF, PT, BMP3M, PHOS3, MG3, CK3 #### [address] #### VD25H #### [facility] [address] [place] [address] Lymphocytes/100 WBC (Bld) 4.3 % Low 20.0-40.0 [facility] Comment on above: Performed By: #### H EMDF, PT, BMP3M, PHOS3, MG3, CK3 #### [place] [address] [place] #### VD25H #### [facility] [address] [place] [address] MCH Entitic mass (RBC) 29.8 pg Normal 26.0-34.0 [facility] Comment on above: Performed By: #### H EMDF, PT, BMP3M, PHOS3, MG3, CK3 #### [address] #### VD25H #### [facility] [address] [place] [address] MCHC mass conc (RBC) 34.2 % Normal 32.0-36.0 [facility] Comment on above: Performed By: #### H EMDF, PT, BMP3M, PHOS3, MG3, CK3 #### [address] #### VD25H #### [facility] [address] [place] [address] MCV Entitic volume (RBC) 87.1 fL Normal 80.0-98.0 [facility] Comment on above: Performed By: #### H EMDF, PT, BMP3M, PHOS3, MG3, CK3 #### [address] #### VD25H #### [facility] [address] [place] [address] Monocytes #/vol (Bld) 0.8 10*3/uL Normal 0.0-0.8 [facility] Comment on above: Performed By: #### H EMDF, PT, BMP3M, PHOS3, MG3, CK3 #### [address] #### VD25H #### [facility] [address] [place] [address] Monocytes/100 WBC (Bld) 5.9 % Normal 2.0-10.0 [facility] Comment on above: Performed By: #### H EMDF, PT, BMP3M, PHOS3, MG3, CK3 #### [facility] [address] [place], [place] #### VD25H #### [facility] [address] [place] [address] Platelet mean volume Entitic volume (Bld) 8.4 fL Normal 7.4-10.4 [facility] Comment on above: Performed By: #### H EMDF, PT, BMP3M, PHOS3, MG3, CK3 #### [place] [address] [place] #### VD25H #### [facility] [address] [place] [address] Platelets #/vol (Bld) 155 10*3/uL Normal 140-440 [facility] Comment on above: Performed By: #### H EMDF, PT, BMP3M, PHOS3, MG3, CK3 #### [facility] [address] [place], [place] #### VD25H #### [facility] [address] [place] [address] RBC #/vol (Bld) 4.13 10*6/uL Low 4.40-5.90 [facility] Comment on above: Performed By: #### H EMDF, PT, BMP3M, PHOS3, MG3, CK3 #### [facility] [address] [place], [place] #### VD25H #### [facility] [address] [place] [address] WBC #/vol (Bld) 13.6 10*3/uL High 3.6-10.7 [facility] Comment on above: Performed By: #### H EMDF, PT, BMP3M, PHOS3, MG3, CK3 #### [place] [address] [place], [place] #### VD25H #### [facility] [address] [place] [address] Magnesiumon 07-10-2018 Magnesium mass conc 2.3 mg/dL Normal 1.6-2.3 [facility] Comment on above: Performed By: #### H EMDF, PT, BMP3M, PHOS3, MG3, CK3 #### [place] [address] [place], [place] #### VD25H #### [facility] [address] [place] [address] Phosphoruson 07-10-2018 Phosphate mass conc 2.7 mg/dL Normal 2.5-4.5 [facility] Comment on above: Performed By: #### H EMDF, PT, BMP3M, PHOS3, MG3, CK3 #### [address] #### VD25H #### [place] [address] [place] [address] Add on test from HISon 07-09 Add on test from HIS Accepted Normal [facility] Comment on above: Result Comment: Spec imen available & acceptable for analysis. Performed By: #### A DDON #### [address] Arterial Blood Gaseson 07-09 CO2 molar conc 24.5 mmol/L Normal 23.0-27.0 [facility] Comment on above: Performed By: #### H EMDF, PT, BMP3M, PHOS3, MG3, CK3 #### [address] #### VD25H #### [place] [address] [place] [address] HCO3 molar conc (Bld) 23.2 mmol/L Normal 21.0-25.0 [facility] Comment on above: Performed By: #### H EMDF, PT, BMP3M, PHOS3, MG3, CK3 #### [address] #### [id number] #### [place] [address] [place] [address] Hemoglobin mass conc (Bld) 15.7 g/dL Normal ScreenOnly [facility] Comment on above: Performed By: #### H EMDF, PT, BMP3M, PHOS3, MG3, CK3 #### [facility] [address], [place] #### [id number] #### [facility] [address] [place] [address] Oxygen ppres (Bld) 397.4 mm[Hg] High 80.0-100.0 [facility] Comment on above: Performed By: #### H EMDF, PT, BMP3M, PHOS3, MG3, CK3 #### [address] [address] [place], [place] #### VD25H #### [facility] [address] [place] [address] Oxygen saturation in Blood 99.2 % Normal 95.0-100.0 [facility] Comment on above: Performed By: #### H EMDF, PT, BMP3M, PHOS3, MG3, CK3 #### [address] [address] [place], [place] #### VD25H #### [facility] [address] [place] [address] pCO2 42.3 mm[Hg] Normal 35.0-45.0 [facility] Comment on above: Performed By: #### H EMDF, PT, BMP3M, PHOS3, MG3, CK3 #### [address] [address] [address] [place], [place] #### VD25H #### [facility] [address] [place] [address] pH (Bld) 7.357 Normal 7.350-7.450 [facility] Comment on above: Performed By: #### H EMDF, PT, BMP3M, PHOS3, MG3, CK3 #### [address] #### VD25H #### [facility] [address] [place] [address] Std Base Excess -2.3 mmol/L Normal -3.0-3.0 [facility] Comment on above: Performed By: #### H EMDF, PT, BMP3M, PHOS3, MG3, CK3 #### [facility] [address] [place], [place] #### VD25H #### [facility] [address] [place] [address] FIO2 100% Normal [facility] Comment on above: Performed By: #### H EMDF, PT, BMP3M, PHOS3, MG3, CK3 #### [address] [address] [place], [place] #### VD25H #### [facility] [address] [place] [address] Basic Metabolic Panelon - Calcium mass conc 8.6 mg/dL Normal 8.4-10.4 [facility] Comment on above: Performed By: #### H EMDF, PT, BMP3M, PHOS3, MG3, CK3 #### [address] [address] [place], [place] #### VD25H #### [facility] [address] [place] [address] Glucose mass conc 150 mg/dL High 70-100 [facility] Comment on above: Performed By: #### H EMDF, PT, BMP3M, PHOS3, MG3, CK3 #### [facility] [address] [place], [place] #### VD25H #### [facility] [address] [place] [address] Anion gap molar conc 7 Normal [facility] Comment on above: Performed By: #### H EMDF, PT, BMP3M, PHOS3, MG3, CK3 #### [address] [address] [address] [place], [place] #### VD25H #### [facility] [address] [place] [address] CO2 molar conc 26 mmol/L Normal 22-30 [facility] Comment on above: Performed By: #### H EMDF, PT, BMP3M, PHOS3, MG3, CK3 #### [address] [address] #### VD25H #### [facility] [address] [place] [address] Creatinine mass conc 0.80 mg/dL Normal 0.52-1.25 [facility] Comment on above: Performed By: #### H EMDF, PT, BMP3M, PHOS3, MG3, CK3 #### [address] #### VD25H #### [place] [address] [place] [address] GFR/1.73 sq M predicted among blacks MDRD vol rate/area (S/P/Bld) mL/min/{1.73_m2} Normal >60 [facility] Comment on above: Performed By: #### H EMDF, PT, BMP3M, PHOS3, MG3, CK3 #### [address] #### VD25H #### [place] [address] [place] [address] GFR/1.73 sq M predicted among non-blacks MDRD vol rate/area (S/P/Bld) mL/min/{1.73_m2} Normal >60 [facility] Comment on above: Result Comment: Sour ce- MDRD equation with creatinine calibration to IDMS(NKDEP) eGFR not recommended for drug dose adjustment Performed By: #### H EMDF, PT, BMP3M, PHOS3, MG3, CK3 #### [address] [address] #### VD25H #### [place] [address] [place] [address] Urea nitrogen mass conc 16 mg/dL Normal 7-20 [facility] Comment on above: Performed By: #### H EMDF, PT, BMP3M, PHOS3, MG3, CK3 #### [facility] [address] [place], [place] #### VD25H #### [facility] [address] [place] [address] Chloride molar conc 110 mmol/L High 98-107 [facility] Comment on above: Performed By: #### H EMDF, PT, BMP3M, PHOS3, MG3, CK3 #### [address] [address] [address] [place] #### VD25H #### [facility] [address] [place] [address] Potassium molar conc 4.7 mmol/L Normal 3.5-5.1 [facility] Comment on above: Performed By: #### H EMDF, PT, BMP3M, PHOS3, MG3, CK3 #### [address] [address] [address] [place] #### VD25H #### [facility] [address] [place] [address] Sodium molar conc 143 mmol/L Normal 135-145 [facility] Comment on above: Performed By: #### H EMDF, PT, BMP3M, PHOS3, MG3, CK3 #### [address] [address] [address] [facility], [place] #### VD25H #### [facility] [address] [place] [address] CKon 07-09-2018 CK enzyme act/vol 1451 U/L High 30-170 [facility] Comment on above: Performed By: #### H EMDF, PT, BMP3M, PHOS3, MG3, CK3 #### [address] [address] [address] [facility], [place] #### VD25H #### [facility] [address] [place] [address] CK enzyme act/vol 3832 U/L High 30-170 [facility] Comment on above: Performed By: #### H EMDF, PT, BMP3M, PHOS3, MG3, CK3 #### [facility] [address] [place] [address] #### VD25H #### [facility] [address] [place] [address] CR Chest 1 View Frontalon CR Chest 1 View Frontal Patient Name: KATHYA FELDER Diagnostic Radiology Exam Date/Time 07/09/2018 06:21:56 EDT Exam CR Chest 1 View Frontal Ordering Physician MD NATE, [facility] Accession Number [id number] CPT4 Codes 88050 () Reason For Exam dyspnea Report CHEST [...] Transcribed Date and Time: 07/09/2018 6:39 Normal [facility] CR Chest Portableon 07-10-19 19 CR Chest Portable Patient Name: KATHYA HOOPER Diagnostic Radiology Exam Date/Time 07/09/2018 11:34:09 EDT Exam CR Chest Portable Ordering Physician [id number] GUNN Accession Number [id number] CPT4 Codes 81268 () Reason For Exam Central line placement [...] JOHN Transcribed Date and Time: 07/09/2018 1:01 [facility] CR Chest Portable Patient Name: KATHYA HOOPER Diagnostic Radiology Exam Date/Time 07/09/2018 03:05:20 EDT Exam CR Chest Portable Ordering Physician MD NATE, [facility] Accession Number [id number] CPT4 Codes 30534 () Reason For Exam intubation Report CHEST PORTABLE: Indication: Inpatient; intubation Views: Portable frontal Comparison: 07/08/2018 at 22:16 Time: 07/09/2018 at 2:46 FINDINGS: Interval intubation with endotracheal tube approximately 4.2 cm above the level of the alma. An enteric tube has been placed with distal tip below the hemidiaphragm but excluded from [id number]. Cardiac monitoring wires and leads are present. [...] Transcribed Date and Time: 07/09/2018 3:10 Normal [facility] CR Chest Portable Patient Name: KATHYA HOOPER Diagnostic Radiology Exam Date/Time 07/08/2018 22:31:57 EDT Exam CR Chest Portable Ordering Physician MD NATE, [facility] Accession Number [id number] CPT4 Codes 42818 () Reason For Exam cough Report CHEST [...] Transcribed Date and Time: 07/08/2018 11:23 Normal [facility] CTA Head/Neck w/ + w/o contr birgit 07-09-2018 CTA Head/Neck w/ + w/o contrast Patient Name: KATHYA HOOPER CT Exam Date/Time 07/09/2018 04:42:10 EDT Exam CTA Head/Neck w/ + w/o contrast Ordering Physician MD RICKI, JORDAN Accession Number [id number] CPT4 Codes Q9967 (CT ISOVUE 370MG/[id number]), 26102 (), 56393 () Reason For Exam CERVICAL SPINE FRACTURE Report CLINICAL INFORMATION: C-spine fracture after trauma. Vascular injury suspected. CTA HEAD: After 75 ml Isovue IV contrast, 0.3 mm axial cuts were obtained through the brain. Coronal and sagittal reconstructions are reviewed. In addition, 3D images of the [place] were constructed by va and reviewed simultaneously on the separate Vitrea [...] images of the carotids were constructed by and reviewed simultaneously on the separate Vitrea [...] Transcribed Date and Time: 07/09/2018 9:50 Normal [facility] Hemogram w/ Autodiffon 07-09 Abs Baso Cnt 0.1 10*3/uL Normal 0.0-0.2 [facility] Comment on above: Performed By: #### H EMDF, PT, BMP3M, PHOS3, MG3, CK3 #### [facility] [address] [place] [address] #### VD25H #### [facility] [address] [place] [address] Abs Neutrophile Cnt 13.3 10*3/uL High 1.8-7.0 [facility] Comment on above: Performed By: #### H EMDF, PT, BMP3M, PHOS3, MG3, CK3 #### [address] #### VD25H #### [facility] [address] [place] [address] Basophils/100 WBC (Bld) 0.3 % Normal 0.0-2.0 [facility] Comment on above: Performed By: #### H EMDF, PT, BMP3M, PHOS3, MG3, CK3 #### [address] #### VD25H #### [place] [address] [place] [address] Eosinophils #/vol (Bld) 0.0 10*3/uL Normal 0.0-0.5 [facility] Comment on above: Performed By: #### H EMDF, PT, BMP3M, PHOS3, MG3, CK3 #### [address] #### VD25H #### [place] [address] [place] [address] Eosinophils/100 WBC (Bld) 0.0 % Low 1.0-6.0 [facility] Comment on above: Performed By: #### H EMDF, PT, BMP3M, PHOS3, MG3, CK3 #### [address] #### VD25H #### [facility] [address] [place] [address] Erythrocyte distribution width Ratio (RBC) 13.7 % Normal 11.5-14.5 [facility] Comment on above: Performed By: #### H EMDF, PT, BMP3M, PHOS3, MG3, CK3 #### [address] [place], [place] #### VD25H #### [facility] [address] [place] [address] Granulocytes/100 WBC (Bld) 86.5 % High 40.0-80.0 [facility] Comment on above: Performed By: #### H EMDF, PT, BMP3M, PHOS3, MG3, CK3 #### [address] [address] [address] [place], [place] #### VD25H #### [facility] [address] [place] [address] Hematocrit Volume Fraction (Bld) 45.1 % Normal 40.0-52.0 [facility] Comment on above: Performed By: #### H EMDF, PT, BMP3M, PHOS3, MG3, CK3 #### [address] #### VD25H #### [facility] [address] [place] [address] Hemoglobin mass conc (Bld) 15.6 g/dL Normal 13.0-18.0 [facility] Comment on above: Performed By: #### H EMDF, PT, BMP3M, PHOS3, MG3, CK3 #### [address] #### VD25H #### [facility] [address] [place] [address] Lymphocytes #/vol (Bld) 0.8 10*3/uL Low 1.0-4.3 [facility] Comment on above: Performed By: #### H EMDF, PT, BMP3M, PHOS3, MG3, CK3 #### [address] #### VD25H #### [facility] [address] [place] [address] Lymphocytes/100 WBC (Bld) 5.5 % Low 20.0-40.0 [facility] Comment on above: Performed By: #### H EMDF, PT, BMP3M, PHOS3, MG3, CK3 #### [address] [address] [address] [place], [place] #### VD25H #### [facility] [address] [place] [address] MCH Entitic mass (RBC) 29.9 pg Normal 26.0-34.0 [facility] Comment on above: Performed By: #### H EMDF, PT, BMP3M, PHOS3, MG3, CK3 #### [address] [address] [address] [place], [place] #### VD25H #### [facility] [address] [place] [address] MCHC mass conc (RBC) 34.5 % Normal 32.0-36.0 [facility] Comment on above: Performed By: #### H EMDF, PT, BMP3M, PHOS3, MG3, CK3 #### [address] #### VD25H #### [facility] [address] [place] [address] MCV Entitic volume (RBC) 86.7 fL Normal 80.0-98.0 [facility] Comment on above: Performed By: #### H EMDF, PT, BMP3M, PHOS3, MG3, CK3 #### [address] [place], [place] #### VD25H #### [facility] [address] [place] [address] Monocytes #/vol (Bld) 1.2 10*3/uL High 0.0-0.8 [facility] Comment on above: Performed By: #### H EMDF, PT, BMP3M, PHOS3, MG3, CK3 #### [address] #### VD25H #### [facility] [address] [place] [address] Monocytes/100 WBC (Bld) 7.7 % Normal 2.0-10.0 [facility] Comment on above: Performed By: #### H EMDF, PT, BMP3M, PHOS3, MG3, CK3 #### [address] [place], [place] #### VD25H #### [facility] [address] [place] [address] Platelet mean volume Entitic volume (Bld) 8.1 fL Normal 7.4-10.4 [facility] Comment on above: Performed By: #### H EMDF, PT, BMP3M, PHOS3, MG3, CK3 #### [address] [place], [place] #### VD25H #### [facility] [address] [place] [address] Platelets #/vol (Bld) 197 10*3/uL Normal 140-440 [facility] Comment on above: Performed By: #### H EMDF, PT, BMP3M, PHOS3, MG3, CK3 #### [address] [place], [place] #### VD25H #### [facility] [address] [place] [address] RBC #/vol (Bld) 5.20 10*6/uL Normal 4.40-5.90 [facility] Comment on above: Performed By: #### H EMDF, PT, BMP3M, PHOS3, MG3, CK3 #### [address] [place], [place] #### VD25H #### [facility] [address] [place] [address] WBC #/vol (Bld) 15.4 10*3/uL High 3.6-10.7 [facility] Comment on above: Performed By: #### H EMDF, PT, BMP3M, PHOS3, MG3, CK3 #### [address] #### VD25H #### [facility] [address] [place] [address] MRI Spine Cervical w/o Contr birgit 07-09-2018 MRI Spine Cervical w/o Contrast Patient Name: KATHYA HOOPER MRI Exam Date/Time 07/09/2018 00:44:49 EDT Exam MRI Spine Cervical w/o Contrast Ordering Physician MD CHEYENNE, BRITTANY BERRY Accession Number [id number] CPT4 Codes 37145 () Reason For Exam CERVICAL SPINE FRACTURE [...] Transcribed Date and Time: 07/09/2018 7:45 Normal [facility] Magnesiumon 07-09-2018 Magnesium mass conc 2.2 mg/dL Normal 1.6-2.3 [facility] Comment on above: Performed By: #### H EMDF, PT, BMP3M, PHOS3, MG3, CK3 #### [facility] [address] [place], [place] #### VD25H #### [facility] [address] [place] [address] Phosphoruson 07-09-2018 Phosphate mass conc 4.0 mg/dL Normal 2.5-4.5 [facility] Comment on above: Performed By: #### H EMDF, PT, BMP3M, PHOS3, MG3, CK3 #### [facility] [address] [place] #### VD25H #### [facility] [address] [place] [address] Prothrombin Timeon 9 INR Coag RelTime (PPP) [...] EMDF, PT, BMP3M, PHOS3, MG3, CK3 #### [facility] [address] [place], [place] #### VD25H #### [facility] [address] [place] [address] Prothrombin time (PT) Coag time (PPP) 10.3 s Normal 9.0-12.0 [facility] Comment on above: Result Comment: . Performed By: #### H EMDF, PT, BMP3M, PHOS3, MG3, CK3 #### [facility] [address] [place] [address] #### VD25H #### [facility] [address] [place] [address] TS GELon 07-09-2018 TS GEL ABO Group: O Rh, Gel: POS Antibody Screen Gel: NEG Normal [facility] Comment on above: Performed By: #### T SGL #### [facility] [address] [place] [address] Vit D 25-OH, Totalon 019 Vit D 25-OH, Total 23 ng/mL Low 30-100 [facility] Comment on above: Result Comment: Ther apy is based on measurement of Total 25-OHD with the following classification levels: Less than 20 ng/mL: Indicative of Vit D deficiency 20-30 ng/mL: Suggests Vit D insufficiency Optimal: Greater than or equal to 30 ng/mL Test performed by [employer] Competitive Immunoassay, measuring Total Vitamin D, not individual fractions. Performed By: #### H EMDF, PT, BMP3M, PHOS3, MG3, CK3 #### [facility] [address] [place] [address] #### VD25H #### [facility] [address] [place] [address] Hematologyon 01-03-2003 Lymphocytes (Bld) [#/Vol] RECTUM, BIOPSY - BENIGN COLONIC MUCOSA WITH INTRAMUCOSAL LYMPHOID AGGREGATES. [facility] Otheron 01-03-2003 CONVERTED ELECTRONIC SIGNATURE BARBARA CASTILLO M.D., PATHOLOGIST (Electronic signature on file) Final Signed Out: 01/03/2003 15:09 [facility] CONVERTED ORDERING PROVIDER Ordering Provider: BENI VERA [facility] Culture, urine Bacteria identified Cx Nom (U) Culture exhibits no growth. [facility] Work Phone: Vital Signs Date Time Vital Sign Value Performing Clinician Facility 10-02-2023 13:56-0400 Diastolic blood pressure 62 mm[Hg] Fei Farooq MD Work Phone: [facility] 10-02-2023 13:56-0400 Heart rate 104 /min Fei Farooq MD Work Phone: [facility] 10-02-2023 13:56-0400 SaO2% (BldA) [Mass fraction] 94 % Fei Farooq MD Work Phone: [facility] 10-02-2023 13:56-0400 Systolic blood pressure 124 mm[Hg] Fei Farooq MD Work Phone: [facility] 10-02-2023 11:13-0400 Respiratory rate 16 /min Fei Farooq MD Work Phone: [facility] 10-02-2023 09:47-0400 Body mass index (BMI) [Ratio] 26.19 kg/m2 Fei Farooq MD Work Phone: [facility] 10-02-2023 09:47-0400 Body temperature 98.01 [degF] Fei Farooq MD Work Phone: [facility] 10-02-2023 09:47-0400 Body weight 92.53 kg Fei Farooq MD Work Phone: [facility] 05-20-2022 18:30-0500 Body mass index (BMI) [Ratio] 26.32 kg/m2 Abelardo Gombash DO Work Phone: [facility] 05-20-2022 18:30-0500 Body temperature 97.3 [degF] Abelardo Gombash DO Work Phone: [facility] 05-20-2022 18:30-0500 Body weight 92.99 kg Abelardo Gombash DO Work Phone: [facility] 05-20-2022 18:30-0500 Diastolic blood pressure 108 mm[Hg] Abelardo Gombash DO Work Phone: [facility] 05-20-2022 18:30-0500 Heart rate 100 /min Abelardo Gombash DO Work Phone: [facility] 05-20-2022 18:30-0500 Respiratory rate 14 /min Abelardo Gombash DO Work Phone: [facility] 05-20-2022 18:30-0500 SaO2% (BldA) [Mass fraction] 98 % Abelardo Gombash DO Work Phone: [facility] 05-20-2022 18:30-0500 Systolic blood pressure 125 mm[Hg] Abelardo Gombash DO Work Phone: [facility] 05-15-2021 09:40-0500 Body height 188 cm Timothy Micheal DO Work Phone: [facility] 05-15-2021 09:40-0500 Body mass index (BMI) [Ratio] 23.75 kg/m2 Timothy Micheal DO Work Phone: [facility] 05-15-2021 09:40-0500 Body weight 83.92 kg Timothy Micheal DO Work Phone: [facility] 05-15-2021 09:38-0500 Body temperature 97.59 [degF] Timothy Micheal DO Work Phone: [facility] 05-15-2021 09:38-0500 Diastolic blood pressure 76 mm[Hg] Timothy Micheal DO Work Phone: [facility] 05-15-2021 09:38-0500 Heart rate 102 /min Timothy Micheal DO Work Phone: [facility] 05-15-2021 09:38-0500 Respiratory rate 16 /min Timothy Micheal DO Work Phone: [facility] 05-15-2021 09:38-0500 SaO2% (BldA) [Mass fraction] 99 % Timothy Micheal DO Work Phone: [facility] 05-15-2021 09:38-0500 Systolic blood pressure 115 mm[Hg] Timothy Micheal DO Work Phone: [facility] 03-24-2021 10:20-0500 Respiratory rate 18 /min Brady Nesheim DO Work Phone: [facility] 03-24-2021 10:20-0500 SaO2% (BldA) [Mass fraction] 94 % Brady Nesheim DO Work Phone: [facility] 03-24-2021 08:44-0500 Body temperature 97.7 [degF] Brady Nesheim DO Work Phone: [facility] 03-24-2021 08:44-0500 Diastolic blood pressure 55 mm[Hg] Brady Nesheim DO Work Phone: [facility] 03-24-2021 08:44-0500 Heart rate 85 /min Brady Nesheim DO Work Phone: [facility] 03-24-2021 08:44-0500 Systolic blood pressure 85 mm[Hg] Brady Nesheim DO Work Phone: [facility] 03-20-2021 13:41-0500 Body height 188 cm Brady Nesheim DO Work Phone: [facility] 03-20-2021 11:16-0500 Body mass index (BMI) [Ratio] 23.86 kg/m2 Brady Nesheim DO Work Phone: [facility] 03-20-2021 11:16-0500 Body weight 84.32 kg Brady Nesheim DO Work Phone: [facility] Comment on above: earlene Ingram RN (bed scal e measurement) on 03/20/2021 03-18-2021 15:02-0500 Body temperature 99.5 [degF] Boo Castro MD Work Phone: [facility] 03-18-2021 15:02-0500 Diastolic blood pressure 82 mm[Hg] Boo Castro MD Work Phone: [facility] 03-18-2021 15:02-0500 Heart rate 111 /min Boo Castro MD Work Phone: [facility] 03-18-2021 15:02-0500 Respiratory rate 18 /min Boo Castro MD Work Phone: [facility] 03-18-2021 15:02-0500 SaO2% (BldA) [Mass fraction] 93 % Boo Castro MD Work Phone: [facility] 03-18-2021 15:02-0500 Systolic blood pressure 111 mm[Hg] Boo Castro MD Work Phone: [facility] 10-30-2020 17:10-0400 Diastolic blood pressure 82 mm[Hg] eBthany Clemons MD Work Phone: [facility] Work Phone: 10-30-2020 17:10-0400 Heart rate 110 /min Bethany Clemons MD Work Phone: [facility] Work Phone: 10-30-2020 17:10-0400 Respiratory rate 16 /min Bethany Clemons MD Work Phone: [facility] Work Phone: 10-30-2020 17:10-0400 SaO2% (BldA) [Mass fraction] 99 % Bethany Clemons MD Work Phone: [facility] Work Phone: 10-30-2020 17:10-0400 Systolic blood pressure 125 mm[Hg] Bethany Clemons MD Work Phone: [facility] Work Phone: 10-30-2020 13:02-0400 Body mass index (BMI) [Ratio] 24.65 kg/m2 Bethany Clemons MD Work Phone: [facility] Work Phone: 10-30-2020 13:02-0400 Body temperature 96.91 [degF] Bethany Clemons MD Work Phone: [facility] Work Phone: 10-30-2020 13:02-0400 Body weight 87.09 kg Bethany Clemons MD Work Phone: [facility] Work Phone: 09-22-2020 05:01-0400 Diastolic blood pressure 76 mm[Hg] Elizabeth Moura MD Work Phone: [facility] Work Phone: 09-22-2020 05:01-0400 Systolic blood pressure 114 mm[Hg] Elizabeth Moura MD Work Phone: [facility] Work Phone: 09-22-2020 00:26-0400 Body temperature 97.81 [degF] Elizabeth Moura MD Work Phone: [facility] Work Phone: 09-22-2020 00:26-0400 Heart rate 86 /min Elizabeth Moura MD Work Phone: [facility] Work Phone: 09-22-2020 00:26-0400 Respiratory rate 16 /min Elizabeth Moura MD Work Phone: [facility] Work Phone: 09-22-2020 00:26-0400 SaO2% (BldA) [Mass fraction] 98 % Elizabeth Moura MD Work Phone: [facility] Work Phone: 06-26-2020 21:50-0500 BP Diastolic 71 mm[Hg] Abelardo QUIROGAA Work Phone: 06-26-2020 21:50-0500 BP Systolic 118 mm[Hg] Abelardo Gabriel [facility] Work Phone: 06-26-2020 21:50-0500 Pulse (Heart [...] 18 /min Elizabeth Moura MD Work Phone: [facility] Work Phone: 05-16-2019 23:00-0500 SaO2% (BldA) [Mass fraction] 100 % Elizabeth Moura MD Work Phone: [facility] Work Phone: 05-16-2019 23:00-0500 Systolic blood pressure 115 mm[Hg] Elizabeth Moura MD Work Phone: [facility] Work Phone: 05-16-2019 19:57-0500 Body temperature 98.49 [degF] Elizabeth Moura MD Work Phone: [facility] Work Phone: NEGATED: Highlighted [id number] 14:34-0500 BMI (Body Mass Index) 22.16 kg/m2 Ana Stevenson LPN [facility] Work Phone: NEGATED: Highlighted [id number] 14:34-0500 Body weight 78.02 kg Ana Stevenson HOME CHILD CARE PROVIDER [facility] Work Phone: NEGATED: Highlighted [id number] 14:34-0500 Body weight 78 kg Ana Stevenson HOME CHILD CARE PROVIDER [facility] Work Phone: NEGATED: Highlighted [id number] 14:34-0500 BP Diastolic 66 mm[Hg] Ana Stevenson HOME CHILD CARE PROVIDER [facility] Work Phone: NEGATED: Highlighted [id number] 14:34-0500 BP Systolic 102 mm[Hg] Ana Peoplesch HOME CHILD CARE PROVIDER [facility] Work Phone: NEGATED: Highlighted [id number] 14:34-0500 Height 187.96 cm Ana Peoplesch HOME CHILD CARE PROVIDER [facility] Work Phone: NEGATED: Highlighted [id number] 14:34-0500 Height 188 cm Ana Diesch HOME CHILD CARE PROVIDER [facility] Work Phone: NEGATED: Highlighted [id number] 14:34-0500 Pulse (Heart Rate) 104 /min Ana Stevenson LPN [facility] Work Phone: Encounters Encounter Date Encounter Type Care Provider Facility Start: 12-23-2024 ambulatory Renard Burgos OLS Faci lity:[facility] Start: 12-16-2024 ambulatory Renard Burgos OLS Faci lity:[facility] Start: 12-09-2024 ambulatory Renard Burgos OLS Faci lity:[facility] Start: 12-02-2024 ambulatory Renard Burgos OLS Faci lity:[facility] Start: 11-25-2024 ambulatory Renard Burgos OLS Faci lity:[facility] Start: 11-25-2024 Registered Referred Renard Burgos - [facility] Start: 11-18-2024 ambulatory Renard Burgos OLS Faci lity:[facility] Start: 11-18-2024 Registered Referred Renard Burgos - [facility] Start: 11-11-2024 ambulatory Renard Burgos OLS Faci lity:[facility] Start: 11-11-2024 Registered Referred Renard Burgos [facility] Start: 11-04-2024 ambulatory Renard GARLAND Faci lity:[facility] Start: 11-04-2024 Registered Referred Renard Burgos - [facility] Start: 10-28-2024 ambulatory Renard GARLAND Faci lity:[facility] Start: 10-28-2024 Registered Referred Renard Burgos - [facility] Start: 10-21-2024 End: 10-21-2024 ambulatory Renard GARLAND -[facility] Start: 10-21-2024 End: 10-21-2024 Departed Referred Renard Burgos -[facility] Start: 10-21-2024 Registered Referred Renard Burgos - [facility] Start: 10-21-2024 End: 10-21-2024 ambulatory Renard GARLAND Facility:[facility] Start: 10-14-2024 ambulatory Renard GARLAND Faci lity:[facility] Start: 10-14-2024 Registered Referred Renard Burgos - [facility] Start: 10-07-2024 ambulatory Renard GARLAND Faci lity:[facility] Start: 10-07-2024 Registered Referred Renard Burgos - [facility] Start: 09-30-2024 ambulatory Renard GARLAND Faci lity:[facility] Start: 09-30-2024 Registered Referred Renard Burgos - [facility] Start: 09-24-2024 End: 09-24-2024 ambulatory Renard GARLAND -[facility] Start: 09-24-2024 End: 09-24-2024 Departed Referred Renard Burgos -[facility] Start: 09-24-2024 Registered Referred Renard Burgos - [facility] Start: 09-24-2024 End: 09-24-2024 ambulatory Renard GARLAND Facility:[facility] Start: 09-16-2024 End: 09-16-2024 ambulatory Renard GARLAND -[facility] Start: 09-16-2024 End: 09-16-2024 Departed Referred Renard Burgos -[facility] Start: 09-16-2024 Registered Referred Renard Burgos - [facility] Start: 09-16-2024 End: 09-16-2024 ambulatory Renard GARLAND Facility:[facility] Start: 09-11-2024 End: 09-11-2024 ambulatory Renard Shellierustam GARLAND [facility] Work Phone: Start: 09-11-2024 End: 09-11-2024 Departed Referred Renard Burgos -[facility] Start: 09-11-2024 Registered Referred Renard Amezquitaros - [facility] Start: 09-11-2024 End: 09-11-2024 ambulatory Renard GARLAND Facility:[facility] Start: 09-09-2024 End: 09-09-2024 ambulatory Renard GARLAND [facility] Work Phone: Start: 09-09-2024 End: 09-09-2024 Departed Referred Renard Burgos -[facility] Start: 09-09-2024 Registered Referred Renard Burgos - [facility] Start: 09-09-2024 End: 09-09-2024 ambulatory Renard GARLAND Facility:[facility] Start: 09-02-2024 End: 09-02-2024 ambulatory Renard GARLAND [facility] Work Phone: Start: 09-02-2024 End: 09-02-2024 Departed Referred Renard Burgos -[facility] Start: 09-02-2024 Registered Referred Renard Amezquitaros - [facility] Start: 09-02-2024 End: 09-02-2024 ambulatory Renard GARLAND Facility:[facility] Start: 08-26-2024 End: 08-26-2024 ambulatory Renard GARLAND [facility] Work Phone: Start: 08-26-2024 End: 08-26-2024 Departed Referred Renard Burgos -[facility] Start: 08-26-2024 Registered Referred Renard Burgos - [facility] Start: 08-26-2024 End: 08-26-2024 ambulatory Renard GARLAND Facility:[facility] Start: 08-23-2024 End: 08-23-2024 Departed Referred Renard Burgos -[facility] Start: 08-23-2024 Registered Referred Renard Burgos - [facility] Start: 08-23-2024 End: 08-23-2024 ambulatory Renard GARLAND Facility:[facility] Start: 08-19-2024 End: 08-19-2024 ambulatory Renard GARLAND [facility] Work Phone: Start: 08-19-2024 End: 08-19-2024 Departed Referred Renard Burgos -[facility] Start: 08-19-2024 Registered Referred Renard Burgos - [facility] Start: 08-19-2024 End: 08-19-2024 ambulatory Renard GARLAND Facility:[facility] Start: 08-12-2024 End: 08-12-2024 ambulatory Renard GARLAND [facility] Work Phone: Start: 08-12-2024 End: 08-12-2024 Departed Referred Renard Burgos -[facility] Start: 08-12-2024 Registered Referred Renard Burgos - [facility] Start: 08-12-2024 End: 08-12-2024 ambulatory Renard GARLAND Facility:[facility] Start: 08-05-2024 End: 08-05-2024 Departed Referred Renard Burgos -[facility] Start: 08-05-2024 Registered Referred Renard Burgos - [facility] Start: 08-05-2024 End: 08-05-2024 ambulatory Renard GARLAND Facility:[facility] Start: 07-29-2024 End: 07-29-2024 ambulatory Renard GARLAND [facility] Work Phone: Start: 07-29-2024 End: 07-29-2024 Departed Referred Renard Burgos -[facility] Start: 07-29-2024 Registered Referred Peter Katsaros - [facility] Start: 07-29-2024 End: 07-29-2024 ambulatory Renard GARLAND Facility:[facility] Start: 07-22-2024 End: 07-22-2024 ambulatory Renard GARLAND [facility] Work Phone: Start: 07-22-2024 End: 07-22-2024 Departed Referred Renard Burgos -[facility] Start: 07-22-2024 Registered Referred Renard Amezquitaros - [facility] Start: 07-22-2024 End: 07-22-2024 ambulatory Renard GARLAND Facility:[facility] Start: 07-16-2024 End: 07-16-2024 ambulatory Renard GARLAND [facility] Work Phone: Start: 07-16-2024 End: 07-16-2024 Departed Referred Renard Burgos -[facility] Start: 07-16-2024 Registered Referred Renard Burgos - [facility] Start: 07-15-2024 End: 07-16-2024 ambulatory Renard GARLAND [facility] Work Phone: Start: 07-15-2024 End: 07-15-2024 Departed Referred Renard Burgos -[facility] Start: 07-15-2024 Registered Referred Renard Burgos - [facility] Start: 07-15-2024 End: 07-15-2024 ambulatory Renard GARLAND Facility:[facility] Start: 07-08-2024 End: 07-08-2024 ambulatory Renard GARLAND [facility] Work Phone: Start: 07-08-2024 End: 07-08-2024 Departed Referred Renard Burgos -[facility] Start: 07-08-2024 Registered Referred Renard Burgos - [facility] Start: 07-08-2024 End: 07-08-2024 ambulatory Renard GARLAND Facility:[facility] Start: 07-01-2024 End: 07-01-2024 ambulatory Renard GARLAND [facility] Work Phone: Start: 07-01-2024 End: 07-01-2024 Departed Referred Renard Burgos -[facility] Start: 07-01-2024 Registered Referred Renard Burgos - [facility] Start: 07-01-2024 End: 07-01-2024 ambulatory Renard GARLAND Facility:[facility] Start: 06-27-2024 End: 06-27-2024 ambulatory Renard GARLAND [facility] Work Phone: Start: 06-27-2024 End: 06-27-2024 Departed Referred Renard Burgos -[facility] Start: 06-27-2024 Registered Referred Renard Burgos - [facility] Start: 06-27-2024 End: 06-27-2024 ambulatory Renard GARLAND Facility:[facility] Start: 06-24-2024 End: 06-24-2024 Subsequent hospital visit by physician Rashaad Pink NP Work Phone: [facility] CT Imaging Comment on above: Chronic cough Start: 06-24-2024 End: 06-24-2024 ambulatory RASHAAD SMITH [facility] Start: 06-24-2024 End: 06-24-2024 Departed Referred Renard Burgos -[facility] Start: 06-24-2024 Registered Referred Renard Burgos - [facility] Start: 06-24-2024 End: 06-24-2024 ambulatory Renard GARLAND Facility:[facility] Start: 06-17-2024 End: 06-17-2024 ambulatory Renard GARLAND [facility] Work Phone: Start: 06-17-2024 End: 06-17-2024 Departed Referred Renard Burgos -[facility] Start: 06-17-2024 Registered Referred Renard Burgos - [facility] Start: 06-17-2024 End: 06-17-2024 ambulatory Renard GARLAND Facility:[facility] Start: 06-12-2024 End: 09-11-2024 Transcribe Orders Rashaad Smith [employer] - [employer] Work Phone: [facility] [place] Scheduling Comment on above: Chronic cough (Prima ry Dx) Start: 06-10-2024 End: 06-10-2024 ambulatory Renard GARLAND [facility] Work Phone: Start: 06-10-2024 End: 06-10-2024 Departed Referred Renard Burgos -[facility] Start: 06-10-2024 Registered Referred Renard Amezquitaros - [facility] Start: 06-10-2024 End: 06-10-2024 ambulatory Renard GARLAND Facility:[facility] Start: 06-07-2024 End: 06-07-2024 ambulatory Renard GARLAND [facility] Work Phone: Start: 06-07-2024 End: 06-07-2024 Departed Referred Renard Burgos -[facility] Start: 06-07-2024 Registered Referred Renard Burgos - [facility] Start: 06-07-2024 End: 06-07-2024 ambulatory Renard GARLAND Facility:[facility] Start: 06-03-2024 End: 06-03-2024 ambulatory Renard GARLAND [facility] Work Phone: Start: 06-03-2024 End: 06-03-2024 Departed Referred Renard Burgos -[facility] Start: 06-03-2024 End: 06-03-2024 ambulatory Renard GARLAND Facility:[facility] Start: 05-27-2024 End: 05-27-2024 Departed Referred Renard Burgos -[facility] Start: 05-27-2024 End: 05-27-2024 ambulatory Renard GARLAND Facility:[facility] Start: 05-20-2024 End: 05-20-2024 Departed Referred Renard Burgos -[facility] Start: 05-20-2024 End: 05-20-2024 ambulatory Renard GARLAND Facility:[facility] Start: 05-13-2024 End: 05-13-2024 Departed Referred Renard Burgos -[facility] Start: 05-13-2024 End: 05-13-2024 ambulatory Renard GARLAND Facility:[facility] Start: 05-06-2024 End: 05-06-2024 Departed Referred [facility] Start: 05-06-2024 End: 05-06-2024 ambulatory Renard GARLAND Facility:[facility] Start: 05-03-2024 End: 05-03-2024 Telephone encounter Renard Burgos Work Phone: [facility] Clinical Communication Comment on above: Other Start: 04-29-2024 End: 04-29-2024 Departed Referred Renard Burgos -[facility] Start: 04-29-2024 End: 04-29-2024 ambulatory Renard GARLAND Facility:[facility] Start: 04-22-2024 End: 04-22-2024 Departed Referred Renard Burgos -[facility] Start: 04-22-2024 End: 04-22-2024 ambulatory Renard GARLAND Facility:[facility] Start: 04-15-2024 End: 04-15-2024 Departed Referred Renard Burgos -[facility] Start: 04-15-2024 End: 04-15-2024 ambulatory Renard GARLAND Facility:[facility] Start: 04-08-2024 ambulatory Renard GARLAND Faci lity:[facility] Start: 04-08-2024 Registered Referred Renard Burgos - [facility] Start: 04-01-2024 ambulatory Renard GARLAND Faci lity:[facility] Start: 04-01-2024 Registered Referred Renard Burgos - [facility] Start: 03-25-2024 End: 03-25-2024 Departed Referred Renard Burgos -[facility] Start: 03-25-2024 End: 03-25-2024 ambulatory Renard GARLAND Facility:[facility] Start: 03-18-2024 End: 03-18-2024 Departed Referred Renard Hensleyrustam -[facility] Start: 03-18-2024 End: 03-18-2024 ambulatory Renard Burgos OLS Facility:[facility] Start: 03-11-2024 End: 03-11-2024 Departed Referred Renard Hensleyrustam -[facility] Start: 03-11-2024 End: 03-11-2024 ambulatory Renard Hensleysaros OLS Facility:[facility] Start: 03-04-2024 End: 03-04-2024 ambulatory Renard Hensleysaros OLS Facility:[facility] Start: 02-26-2024 End: 02-26-2024 ambulatory Renard Katsaros OLS Facility:[facility] Start: 02-23-2024 End: 02-23-2024 ambulatory Renard Hensleysaros OLS Facility:[facility] Start: 02-19-2024 End: 02-19-2024 ambulatory Renard Hensleysaros OLS Facility:[facility] Start: 02-12-2024 End: 02-12-2024 ambulatory Renard Hensleysaros OLS Facility:[facility] Start: 02-05-2024 End: 02-05-2024 ambulatory Renard Katsaros OLS Facility:[facility] Start: 01-29-2024 End: 01-29-2024 ambulatory Renard Hensleysaros OLS Facility:[facility] Start: 01-22-2024 End: 01-22-2024 ambulatory Renard Hensleysaros OLS Facility:[facility] Start: 01-15-2024 ambulatory Renard Hensleysahola OLS Faci lity:[facility] Start: 01-08-2024 End: 01-08-2024 ambulatory Renard Hensleysaros OLS Facility:[facility] Start: 01-02-2024 ambulatory Renard Hensleysaros OLS Faci lity:[facility] Start: 11-22-2023 End: 11-22-2023 ambulatory RENARD BURGOS [facility] Start: 11-22-2023 End: 11-22-2023 Subsequent hospital visit by physician Renard Burgos Work Phone: [facility] X-ray Imaging Comment on above: Dysphagia, oropharyn geal phase; Feeding difficulties Start: 10-16-2023 End: 01-15-2024 Transcribe Orders Renard Burgos Work Phone: [facility] Central Scheduling Comment on above: Dysphagia, oropharyn geal phase (Primary Dx); Feeding difficulties Start: 10-02-2023 End: 10-02-2023 Emergency department patient visit Fei Farooq MD Work Phone: [facility] ED Comment on above: Dyspnea, unspecified type (Primary Dx) Start: 08-07-2023 Registered Referred [facility] Start: 07-31-2023 End: 07-31-2023 ambulatory [facility] Work Phone: Start: 07-31-2023 End: 07-31-2023 Departed Referred [facility] Start: 07-31-2023 Registered Referred [facility] Start: 07-24-2023 End: 07-24-2023 ambulatory [facility] Work Phone: Start: 07-24-2023 End: 07-24-2023 Departed Referred [facility] Start: 07-17-2023 End: 07-17-2023 ambulatory [facility] Work Phone: Start: 07-17-2023 End: 07-17-2023 Departed Referred [facility] Start: 07-17-2023 [facility] Start: 07-10-2023 End: 07-10-2023 ambulatory [facility] Work Phone: Start: 07-10-2023 End: 07-10-2023 Departed Referred [facility] Start: 07-10-2023 [facility] Start: 07-03-2023 End: 07-03-2023 ambulatory [facility] Work Phone: Start: 07-03-2023 End: 07-03-2023 Departed Referred [facility] Start: 07-03-2023 [facility] Start: 06-26-2023 [facility] Start: 06-19-2023 End: 06-19-2023 ambulatory [facility] Work Phone: Start: 06-19-2023 End: 06-19-2023 [facility] Start: 06-19-2023 [facility] Start: 06-12-2023 End: 06-12-2023 ambulatory [facility] Work Phone: Start: 06-12-2023 End: 06-12-2023 [facility] Start: 06-12-2023 [facility] Start: 06-05-2023 End: 06-05-2023 ambulatory [facility] Work Phone: Start: 06-05-2023 End: 06-05-2023 [facility] Start: 06-05-2023 Registered Referred [facility] Start: 05-29-2023 End: 05-29-2023 [facility] Start: 05-29-2023 [facility] Start: 05-22-2023 End: 05-22-2023 ambulatory [facility] Work Phone: Start: 05-22-2023 End: 05-22-2023 Departed Referred [facility] Start: 05-22-2023 Registered Referred [facility] Start: 05-15-2023 End: 05-15-2023 [facility] Start: 05-15-2023 Registered Referred [facility] Start: 05-08-2023 End: 05-08-2023 ambulatory [facility] Work Phone: Start: 05-08-2023 End: 05-08-2023 [facility] Start: 04-17-2023 End: 04-17-2023 ambulatory [facility] Work Phone: Start: 04-17-2023 End: 04-17-2023 [facility] Start: 04-17-2023 Registered Referred [facility] Start: 04-14-2023 End: 04-14-2023 ambulatory [facility] Work Phone: Start: 04-14-2023 End: 04-14-2023 [facility] Start: 04-14-2023 Registered Referred [facility] Start: 04-10-2023 End: 04-10-2023 [facility] Start: 04-10-2023 Registered Referred [facility] Start: 04-03-2023 End: 04-03-2023 ambulatory [facility] Work Phone: Start: 04-03-2023 End: 04-03-2023 [facility] Start: 04-03-2023 Registered Referred [facility] Start: 03-27-2023 End: 03-27-2023 ambulatory [facility] Work Phone: Start: 03-27-2023 End: 03-27-2023 [facility] Start: 03-27-2023 [facility] Start: 03-20-2023 End: 03-20-2023 ambulatory [facility] Work Phone: Start: 03-20-2023 End: 03-20-2023 Departed Referred [facility] Start: 03-20-2023 Registered Referred [facility] Start: 03-16-2023 End: 03-16-2023 ambulatory [facility] Work Phone: Start: 03-16-2023 End: 03-16-2023 [facility] Start: 03-16-2023 [facility] Start: 03-13-2023 End: 03-13-2023 ambulatory [facility] Work Phone: Start: 03-13-2023 End: 03-13-2023 [facility] Start: 03-06-2023 End: 03-06-2023 ambulatory [facility] Work Phone: Start: 03-06-2023 End: 03-06-2023 [facility] Start: 03-06-2023 [facility] Start: 02-27-2023 End: 02-27-2023 ambulatory [facility] Work Phone: Start: 02-27-2023 End: 02-27-2023 [facility] Start: 02-20-2023 End: 02-20-2023 ambulatory [facility] Work Phone: Start: 02-20-2023 End: 02-20-2023 [facility] Start: 02-20-2023 Registered Referred [facility] Start: 02-13-2023 End: 02-13-2023 ambulatory [facility] Work Phone: Start: 02-13-2023 End: 02-13-2023 [facility] Start: 02-13-2023 Registered Referred [facility] Start: 02-06-2023 End: 02-06-2023 ambulatory [facility] Work Phone: Start: 02-06-2023 End: 02-06-2023 [facility] Start: 02-06-2023 [facility] Start: 01-30-2023 End: 01-30-2023 ambulatory [facility] Work Phone: Start: 01-30-2023 End: 01-30-2023 [facility] Start: 01-30-2023 [facility] Start: 01-23-2023 End: 01-23-2023 [facility] Start: 01-23-2023 [facility] Start: 01-16-2023 End: 01-16-2023 ambulatory [facility] Work Phone: Start: 01-16-2023 End: 01-16-2023 [facility] Start: 01-16-2023 [facility] Start: 01-09-2023 End: 01-09-2023 [facility] Start: 01-09-2023 [facility] Start: 01-03-2023 End: 01-03-2023 ambulatory [facility] Work Phone: Start: 01-03-2023 End: 01-03-2023 [facility] Start: 01-03-2023 [facility] Start: 12-26-2022 End: 12-26-2022 ambulatory [facility] Work Phone: Start: 12-26-2022 End: 12-26-2022 [facility] Start: 12-26-2022 Registered Referred [facility] Start: 12-19-2022 End: 12-19-2022 ambulatory [facility] Work Phone: Start: 12-19-2022 End: 12-19-2022 [facility] Start: 12-19-2022 Registered Referred [facility] Start: 12-12-2022 End: 12-12-2022 [facility] Start: 12-12-2022 [facility] Start: 12-05-2022 End: 12-05-2022 ambulatory [facility] Work Phone: Start: 12-05-2022 End: 12-05-2022 [facility] Start: 12-05-2022 Registered Referred [facility] Start: 11-28-2022 End: 11-28-2022 ambulatory [facility] Work Phone: Start: 11-28-2022 End: 11-28-2022 [facility] Start: 11-28-2022 Registered Referred [facility] Start: 11-21-2022 End: 11-21-2022 [facility] [facility] Work Phone: Start: 11-21-2022 End: 11-21-2022 [facility] Start: 11-21-2022 [facility] Start: 11-14-2022 End: 11-14-2022 ambulatory [facility] Work Phone: Start: 11-14-2022 End: 11-14-2022 Departed Referred [facility] [employer] Start: 11-14-2022 Registered Referred [facility] [employer] Start: 11-07-2022 Registered Referred [facility] [employer] Start: 10-31-2022 End: 10-31-2022 ambulatory [facility] Work Phone: Start: 10-31-2022 End: 10-31-2022 [facility] Start: 10-31-2022 [facility] Start: 10-24-2022 End: 10-24-2022 ambulatory [facility] Work Phone: Start: 10-24-2022 End: 10-24-2022 [facility] Start: 10-24-2022 [facility] Start: 10-17-2022 End: 10-17-2022 [facility] Start: 10-17-2022 Registered Referred [facility] [employer] Start: 10-10-2022 End: 10-10-2022 ambulatory [facility] Work Phone: Start: 10-10-2022 End: 10-10-2022 [facility] Start: 10-10-2022 Registered Referred [facility] [employer] Start: 10-03-2022 End: 10-03-2022 ambulatory [facility] Work Phone: Start: 10-03-2022 End: 10-03-2022 [facility] Start: 09-19-2022 End: 09-19-2022 [facility] Start: 09-19-2022 [facility] Start: 09-12-2022 End: 09-12-2022 ambulatory [facility] Work Phone: Start: 09-12-2022 End: 09-12-2022 Departed Referred [facility] [employer] Start: 09-05-2022 End: 09-05-2022 Departed Referred [facility] [employer] Start: 09-05-2022 Registered Referred [facility] [employer] Start: 08-29-2022 End: 08-29-2022 Departed Referred [facility] [employer] Start: 08-29-2022 Registered Referred [facility] [employer] Start: 08-22-2022 End: 08-22-2022 ambulatory [facility] Work Phone: Start: 08-22-2022 End: 08-22-2022 Departed Referred [facility] [employer] Start: 08-22-2022 Registered Referred [facility] [employer] Start: 08-15-2022 End: 08-15-2022 ambulatory [facility] Work Phone: Start: 08-15-2022 End: 08-15-2022 Departed Referred [facility] [employer] Start: 08-15-2022 Registered Referred [facility] [employer] Start: 08-08-2022 End: 08-08-2022 Departed Referred [facility] [employer] Start: 08-08-2022 Registered Referred [facility] Start: 08-01-2022 End: 08-01-2022 ambulatory [facility] Work Phone: Start: 08-01-2022 End: 08-01-2022 Departed Referred [facility] [employer] Start: 08-01-2022 Registered Referred [facility] [employer] Start: 07-25-2022 End: 07-25-2022 ambulatory [facility] Work Phone: Start: 07-25-2022 End: 07-25-2022 [facility] Start: 07-25-2022 Registered Referred [facility] [employer] Start: 07-19-2022 End: 07-19-2022 [facility] Start: 07-19-2022 Registered Referred [facility] [employer] Start: 07-18-2022 End: 07-18-2022 ambulatory [facility] Work Phone: Start: 07-18-2022 End: 07-18-2022 [facility] Start: 07-18-2022 [facility] Start: 07-11-2022 End: 07-11-2022 ambulatory [facility] Work Phone: Start: 07-11-2022 End: 07-11-2022 [facility] Start: 07-11-2022 Registered Referred [facility] [employer] Start: 07-04-2022 End: 07-04-2022 [facility] Start: 07-04-2022 Registered Referred [facility] [employer] Start: 06-27-2022 End: 06-27-2022 ambulatory [facility] Work Phone: Start: 06-27-2022 End: 06-27-2022 [facility] Start: 06-27-2022 [facility] Start: 06-20-2022 End: 06-20-2022 ambulatory [facility] Work Phone: Start: 06-20-2022 End: 06-20-2022 [facility] Start: 06-20-2022 [facility] Start: 06-13-2022 End: 06-13-2022 ambulatory [facility] Work Phone: Start: 06-13-2022 End: 06-13-2022 [facility] Start: 06-13-2022 Registered Referred [facility] [facility] Start: 06-06-2022 End: 06-06-2022 [facility] Start: 06-06-2022 [facility] Start: 05-30-2022 End: 05-30-2022 ambulatory [facility] Work Phone: Start: 05-30-2022 End: 05-30-2022 [facility]ed [facility] Start: 05-23-2022 End: 05-23-2022 ambulatory [facility] Work Phone: Start: 05-23-2022 End: 05-23-2022 Departed [facility] Start: 05-23-2022 Registered Referred [facility] Start: 05-20-2022 End: 05-20-2022 Emergency department patient visit Abelardo Rios Work Phone: [facility] Comment on above: Dislodged gastrostom y tube (Primary Dx) Start: 05-16-2022 End: 05-16-2022 [facility] Start: 05-16-2022 [facility] Start: 05-09-2022 End: 05-09-2022 ambulatory [facility] Work Phone: Start: 05-09-2022 End: 05-09-2022 [facility] Start: 05-09-2022 [facility] Start: 05-03-2022 End: 05-03-2022 ambulatory [facility] Work Phone: Start: 05-03-2022 End: 05-03-2022 [facility] Start: 05-03-2022 [facility] Start: 04-26-2022 End: 04-26-2022 [facility] Start: 04-26-2022 [facility] Start: 04-18-2022 End: 04-18-2022 ambulatory [facility] Work Phone: Start: 04-18-2022 End: 04-18-2022 [facility] Start: 04-18-2022 [facility] Start: 04-14-2022 End: 04-14-2022 ambulatory [facility] Work Phone: Start: 04-14-2022 End: 04-14-2022 [facility] Start: 04-14-2022 [facility] Start: 04-11-2022 End: 04-11-2022 ambulatory [facility] Work Phone: Start: 04-11-2022 End: 04-11-2022 [facility] Start: 04-11-2022 [facility] Start: 04-04-2022 End: 04-04-2022 ambulatory [facility] Work Phone: Start: 04-04-2022 End: 04-04-2022 [facility] Start: 04-04-2022 [facility] Start: 03-28-2022 End: 03-28-2022 ambulatory [facility] Work Phone: Start: 03-28-2022 End: 03-28-2022 Departed Referred [facility] [employer] Start: 03-28-2022 Registered Referred [facility] [employer] Start: 03-21-2022 End: 03-21-2022 ambulatory [facility] Work Phone: Start: 03-21-2022 End: 03-21-2022 Departed Referred [facility] [employer] Start: 03-21-2022 Registered [facility]erred [facility] [employer] Start: 03-14-2022 End: 03-14-2022 Departed Referred [facility] [employer] Start: 03-14-2022 Registered Referred [facility] [employer] Start: 2022 End: 2022 ambulatory [facility] Work Phone: Start: 2022 End: 2022 Departed Referred [facility] Start: 2022 Registered Referred [facility] [employer] Start: 02-28-2022 End: 02-28-2022 Departed Referred [facility] [employer] Start: 02-28-2022 Registered Referred [facility] [employer] Start: 02-21-2022 End: 02-21-2022 ambulatory [facility] Work Phone: Start: 02-21-2022 End: 02-21-2022 Departed Referred [facility] [employer] Start: 02-21-2022 Registered Referred [facility] [employer] Start: 02-14-2022 End: 02-14-2022 ambulatory [facility] Work Phone: Start: 02-14-2022 End: 02-14-2022 Departed Referred [facility] [employer] Start: 02-14-2022 Registered Referred [facility] [employer] Start: 02-07-2022 End: 02-07-2022 ambulatory [facility] Work Phone: Start: 02-07-2022 End: 02-07-2022 [facility] Start: 02-07-2022 Registered Referred [facility] [employer] Start: 01-31-2022 End: 01-31-2022 ambulatory [facility] Work Phone: Start: 01-31-2022 End: 01-31-2022 [facility] Start: 01-31-2022 [facility] Start: 01-24-2022 End: 01-24-2022 ambulatory [facility] Work Phone: Start: 01-24-2022 End: 01-24-2022 [facility] Start: 01-24-2022 Registered Referred [facility] [employer] Start: 01-17-2022 End: 01-17-2022 [facility] Start: 01-17-2022 Registered Referred [facility] [employer] Start: 01-10-2022 End: 01-10-2022 ambulatory [facility] Work Phone: Start: 01-10-2022 End: 01-10-2022 [facility]ed [facility] Start: 01-10-2022 Registered Referred [facility] [employer] Start: 01-04-2022 End: 01-04-2022 ambulatory [facility] Work Phone: Start: 01-04-2022 End: 01-04-2022 [facility] Start: 01-04-2022 Registered Referred [facility] [employer] Start: 12-27-2021 End: 12-27-2021 ambulatory [facility] Work Phone: Start: 12-27-2021 End: 12-27-2021 Departed Referred [facility] [employer] Start: 12-27-2021 Registered Referred [facility] [employer] Start: 12-20-2021 End: 12-20-2021 ambulatory [facility] Work Phone: Start: 12-20-2021 End: 12-20-2021 Departed Referred [facility] [employer] Start: 12-20-2021 Registered Referred [facility] [employer] Start: 12-13-2021 End: 12-13-2021 [facility] Start: 12-13-2021 Registered Referred [facility] [employer] Start: 12-06-2021 End: 12-06-2021 ambulatory [facility] Work Phone: Start: 12-06-2021 End: 12-06-2021 Departed Referred [facility] [employer] Start: 12-06-2021 Registered Referred [facility] [employer] Start: 11-29-2021 End: 11-29-2021 ambulatory [facility] Work Phone: Start: 11-29-2021 End: 11-29-2021 Departed Referred [facility] [employer] Start: 11-29-2021 Registered Referred [facility] [employer] Start: 11-22-2021 End: 11-22-2021 Departed Referred [facility] [employer] Start: 11-22-2021 Registered Referred [facility] [employer] Start: 11-15-2021 End: 11-15-2021 [facility] Start: 11-15-2021 Registered [facility] [employer] Start: 11-08-2021 End: 11-08-2021 [facility] Start: 10-25-2021 Registered Ref[facility] [employer] Start: 10-18-2021 Registered Referred [facility] [employer] Start: 10-11-2021 Registered [facility] Start: 10-04-2021 Registered [facility] Start: 09-28-2021 End: 09-28-2021 [facility] Start: 09-28-2021 Registered [facility] Start: 09-20-2021 End: 09-20-2021 [facility] Start: 09-20-2021 [facility] Start: 09-13-2021 End: 09-13-2021 [facility] Start: 09-13-2021 Registered Referred [facility] [employer] Start: 09-06-2021 End: 09-06-2021 [facility] Start: 09-06-2021 Registered [facility] Start: 08-30-2021 End: 08-30-2021 [facility] Start: 08-30-2021 Registered [facility] Start: 08-23-2021 End: 08-23-2021 [facility] Start: 08-23-2021 Registered [facility] Start: 08-18-2021 End: 08-18-2021 [facility] Start: 08-18-2021 Registered [facility] [employer] Start: 08-16-2021 End: 08-16-2021 Departed Referred [facility] [employer] Start: 08-16-2021 [facility] [employer] Start: 08-09-2021 End: 08-09-2021 Departed Referred [facility] [employer] Start: 08-02-2021 End: 08-02-2021 Departed Referred [facility] [employer] Start: 08-02-2021 Registered Referred [facility] [employer] Start: 07-26-2021 End: 07-26-2021 [facility] Start: 07-26-2021 [facility] Start: 07-19-2021 End: 07-19-2021 [facility] Start: 07-19-2021 Registered Referred [facility] [employer] Start: 07-12-2021 End: 07-12-2021 [facility] Start: 07-05-2021 End: 07-05-2021 Departed Referred [facility] [employer] Start: 07-05-2021 Registered Referred [facility] [employer] Start: 06-28-2021 End: 06-28-2021 Departed Referred [facility] [employer] Start: 06-28-2021 [facility] [employer] Start: 06-21-2021 End: 06-21-2021 [facility] Start: 06-21-2021 [facility] Start: 06-14-2021 [facility] Start: 06-07-2021 End: 06-07-2021 [facility] Start: 06-07-2021 Registered Referred [facility] Start: 05-31-2021 End: 05-31-2021 Departed Referred [facility] Start: 05-31-2021 [facility] Start: 05-24-2021 End: 05-24-2021 Departed [facility] Start: 05-17-2021 Registered Referred [facility] Start: 05-15-2021 End: 05-15-2021 Emergency department patient visit Timothy Micheal DO Work Phone: [facility] Comment on above: PEG tube malfunction (HCC) (Primary Dx) Start: 05-14-2021 [facility]istered [facility] Start: 05-10-2021 Registered Referred [facility] Start: 05-03-2021 Registered Referred [facility] Start: 04-26-2021 Registered Referred [facility] Start: 04-19-2021 Registered Referred [facility] Start: 04-12-2021 Registered [facility] Start: 04-07-2021 Registered Referred [facility] Start: 03-19-2021 End: 03-24-2021 Evaluation and management of inpatient Brady Desai DO Work Phone: [facility] [employer] Comment on above: Respiratory syncytia l virus (RSV) (Primary Dx); Hypoxia Start: 03-18-2021 End: 03-18-2021 Emergency department patient visit Boo Castro MD Work Phone: [facility] Comment on above: Respiratory syncytia l virus (RSV) (Primary Dx); Hypoxia Start: 10-30-2020 End: 10-30-2020 Emergency department patient visit Bethany Clemons MD Work Phone: [facility] ED Comment on above: Feeding tube dysfunc tion, initial encounter (Primary Dx) Start: 09-22-2020 End: 09-22-2020 Emergency department patient visit Elizabeth Moura MD Work Phone: [facility] Comment on above: PEG tube malfunction (HCC) (Primary Dx) Start: 06-26-2020 End: 06-26-2020 Emergency department patient visit Abelardo Rios Work Phone: [facility] ED Comment on above: PEG tube malfunction (HCC) (Primary Dx) Start: 05-22-2019 End: 05-22-2019 Patient encounter procedure Jarvis Kendall MD Work Phone: [facility] Work Phone: Start: 05-22-2019 End: 05-22-2019 Pt evaluation Jarvis Kendall MD Work Phone: [facility] Work Phone: Start: 05-16-2019 End: 05-16-2019 Emergency department patient visit Elizabeth Moura MD Work Phone: [facility] ED Comment on above: Contusion of right h ip, initial encounter (Primary Dx) Start: 08-15-2018 Evaluation and management of inpatient UNKNOWN PROVIDER [facility] Start: 07-08-2018 Evaluation and management of inpatient JORDAN RICKI [facility] Start: 01-02-2003 End: 01-02-2003 Patient encounter procedure Beni Smithdir Work Phone: [facility] Start: 01-02-2003 Results Only Beni Cappsr Work Phone: [facility] Procedures Date Procedure Procedure Detail Performing [...] 10-02-2023 Ct head/brain w/o contrast material Helen SCHUMACHER-C Work Phone: Start: 01-30-2023 Urine culture Start: [...] use Rfaa Michel MD Work Phone: Start: 03-23-2021 Gluc [...] EMDF, PT, BMP3M, PHOS3, MG3, CK3 #### [facility] [address] [place] [address] #### [id number] #### [employer] [address] [place] [address] Start: 07-27-2018 Microscopic examinat ion of blood, culture Comment on above: Order Comment: Speci men Source Comment:Blood Performed By: #### H EMDF, PT, BMP3M, PHOS3, MG3, CK3 #### [employer] [address] [place] [address] #### [id number] #### [employer] [facility] [address] [place] [address] Start: 07-19-2018 Microscopic examinat ion of blood, culture Comment on above: Order Comment: Speci men Source Comment:Blood Performed By: #### H EMDF, PT, BMP3M, PHOS3, MG3, CK3 #### [employer] [address] [address] #### [id number] #### [employer] [facility] [address] [place] [address] Start: 01-02-2003 CONVERTED SURGICAL PATHOLOGY Beni Shaista Work Phone: Urine culture NEGATED: Highlighted rowStart: 05-22-2019 End: 05-22-2019 Documentation of current medications Ana Stevenson HOME CHILD CARE PROVIDER NEGATED: Highlighted rowStart: 05-22-2019 End: 05-22-2019 Smoking cessation education Ana Stevenson [place] Plan of Treatment Date Care Activity Detail Author Start: 2032 RSV Immunization for Adults (1 - 1-dose 75+ series) RSV Immunization for Adults (1 - 1-dose 75+ series) [facility] Start: 01-10-2027 DTaP/Tdap/Td vaccine (2 - Td or Tdap) DTaP/Tdap/Td vaccine (2 - Td or Tdap) [facility] Start: 01-10-2027 DTaP/Tdap/Td vaccine (2 - Td) DTaP/Tdap/Td vaccine (2 - Td) [facility] Work Phone: Start: 01-10-2027 DTaP/Tdap/Td Vaccine s (2 - Td or Tdap) DTaP/Tdap/Td Vaccines (2 - Td or Tdap) [facility] Start: 12-30-2024 Influenza vaccination Influenz a Vaccine (Season Ended) [facility] Start: 03-22-2024 Diabetes mellitus screening Diabetes Screening [facility] Start: 12-31-2023 COVID-19 Vaccine ( season) COVID-19 Vaccine ( season) [facility] Start: 12-31-2023 COVID-19 Vaccine ( season) COVID-19 Vaccine ( season) [facility] Start: 12-31-2023 COVID-19 Vaccine ( season) COVID-19 Vaccine ( season) [facility] Start: 12-31-2023 Influenza vaccination [facility] Start: 01-30-2023 Bacteria identified in Urine by Culture Urine Culture [facility] Start: 01-30-2023 [facility] Start: 12-30-2022 COVID-19 Vaccine ( season) COVID-19 Vaccine ( season) [facility] Start: 2022 Pneumococcal 0-64 ye ars Vaccine (2 of 2 - PPSV23) Pneumococcal 0-64 years Vaccine (2 of 2 - PPSV23) [facility] Start: 2022 Pneumococcal 0-64 ye ars Vaccine (2 of 2) Pneumococcal 0-64 years Vaccine (2 of 2) [facility] Work Phone: Start: 2022 Pneumococcal Vaccine : 65+ Years (2 of 2 - PCV) Pneumococcal Vaccine: 65+ Years (2 of 2 - PCV) [facility] Start: 12-30-2021 Influenza vaccination Influenza Vacc ine (#1) [facility] Start: 12-30-2020 Influenza vaccination [facility] Start: 12-31-2019 Influenza vaccination Flu vaccine (# 1) [facility] Work Phone: Start: 08-18-2019 A1C test (Diabetic o r Prediabetic) A1C test (Diabetic or Prediabetic) [facility] Work Phone: Start: 08-18-2019 HbA1c (Bld) [Mass fraction] A1C test (Diabetic or Prediabetic) [facility] Work Phone: Start: 08-18-2019 Hemoglobin A1c measurement A1C test (Diabetic or Prediabetic) [facility] Start: 05-22-2019 End: 05-22-2019 Appointment Appointment [facility] Work Phone: Start: 02-07-2019 Lipid panel Lipid screen [facility] Start: 02-07-2019 Lipid screen Lipid screen [facility] Work Phone: Start: 12-30-2018 Influenza vaccination Flu vaccine (# 1) [facility] Work Phone: Start: 01-10-2018 Pneumococcal Vaccine : 50+ Years (2 of 2 - PCV) Pneumococcal Vaccine: 50+ Years (2 of 2 - PCV) [facility] Start: 01-10-2018 Pneumococcal Vaccine : 65+ Years (2 - PCV) Pneumococcal Vaccine: 65+ Years (2 - PCV) [facility] Start: 2017 RSV Immunization age d 60 or older (1 - 1-dose 60+ series) RSV Immunization aged 60 or older (1 - 1-dose 60+ series) [facility] Start: 2007 Colon cancer screen colonoscopy Colon cancer screen colonoscopy [facility] Work Phone: Start: 2007 Screening for malign ant neoplasm of colon Colon cancer screen colonoscopy [facility] Work Phone: Start: 2007 Shingles Vaccine (1 of 2) Shingles Vaccine (1 of 2) [facility] Start: 2007 Zoster Vaccines (1 o f 2) Zoster Vaccines (1 of 2) [facility] Start: 2002 Screening for malign ant neoplasm of colon Colon cancer screen colonoscopy [facility] Start: 1976 Hepatitis A Vaccines (1 of 2 - Risk 2-dose series) Hepatitis A Vaccines (1 of 2 - Risk 2-dose series) [facility] Start: 1975 Hepatitis C screening Hepatitis C Sc reening [facility] Start: 1969 COVID-19 Vaccine (1) COVID-19 Vaccin e (1) [facility] Start: 1969 Depression Monitoring Depression Mon itoring [facility] Start: 1969 Depression Screen Depression Screen [facility] Start: 1962 COVID-19 Vaccine (1) COVID-19 Vaccin e (1) [facility] Start: 1957 COVID-19 Vaccine (#1) COVID-19 Vacci ne (#1) [facility] Start: 1957 Annual wellness visit Medicare Initial Physical (IPPE) [facility] Start: 1957 Hepatitis B Vaccines (1 of 3 - 3-dose series) Hepatitis B Vaccines (1 of 3 - 3-dose series) [facility] Start: 1957 Lipid panel Lipid Panel [facility] Start: 1957 Screening for malign ant neoplasm of colon [facility] Basic metabolic 2000 panel - Serum or Plasma Basic Metabolic Panel Lab Routine Daily until discontinued starting 03/23/2021, 2 completed [facility] Work Phone: Comment on above: Daily until disconti nued starting 03/23/2021, 2 completed CBC W Auto Different ial panel - Blood CBC Auto Differential Lab Routine Daily until discontinued starting 03/23/2021, 2 completed [facility] Work Phone: Comment on above: Daily until disconti nued starting 03/23/2021, 2 completed End: 06-24-2024 CT Chest WO contrast [facility] Work Phone: Comment on above: Once for 1 Occurrenc es starting 06/24/2024 until 06/24/2024 Culture, Blood 2 Culture, Blood 2 Microbiology STAT 03/19/2021 6:26 PM EST [facility] Work Phone: End: 03-20-2021 Culture, Respiratory Culture, Respiratory Microbiology Routine One Time for 1 Occurrences starting 03/20/2021 until 03/20/2021 [facility] Work Phone: Comment on above: One Time for 1 Occur rences starting 03/20/2021 until 03/20/2021 EKG 12 Lead EKG 12 Lead ECG STAT 03/18/2021 3:20 PM EST [facility] Work Phone: Feeding Tube Feeding Tube Pro cedures Routine 10/30/2020 2:22 PM EDT [facility] Work Phone: End: 09-22-2020 FL WATER SOLUBLE ENEMA W OR WO KUB FL WATER SOLUBLE ENEMA W OR WO KUB Imaging STAT Once for 1 Occurrences starting 09/22/2020 until 09/22/2020 [facility] Work Phone: Comment on above: Once for 1 Occurrenc es starting 09/22/2020 until 09/22/2020 End: 03-23-2021 Glucose [Mass/volume] in Serum or Plasma POCT GLUCOSE Point of Care Testing Routine Now Then Every 6hr for 7 Occurrences starting 03/21/2021 until 03/23/2021 [facility] Work Phone: Comment on above: Now Then Every 6hr f or 7 Occurrences starting 03/21/2021 until 03/23/2021 High Frequency Chest Wall Oscillation (HFCWO) High Frequency Chest Wall Oscillation (HFCWO) Respiratory Care Routine (respiratory use only) until discontinued starting 03/22/2021 [facility] Work Phone: Comment on above: (respirato ry use only) until discontinued starting 03/22/2021 End: 03-20-2021 Legionella Antigen, Urine Legionella Antigen, Urine Microbiology Routine One Time for 1 Occurrences starting 03/20/2021 until 03/20/2021 [facility] Work Phone: Comment on above: One Time for 1 Occur rences starting 03/20/2021 until 03/20/2021 Microscopic examinat ion of blood, culture Culture, Blood Microbiology STAT 03/19/2021 6:26 PM EST [facility] Work Phone: End: 03-20-2021 Microscopic observation [Identifier] in Unspecified specimen by Gram stain Gram Stain Microbiology Routine Once for 1 Occurrences starting 03/20/2021 until 03/20/2021 [facility] Work Phone: Comment on above: Once for 1 Occurrenc es starting 03/20/2021 until 03/20/2021 Oxygen therapy [[facility] Data Set] Initiate Oxygen Therapy Protocol Respiratory Care Routine Daily until discontinued starting 03/20/2021 [facility] Work Phone: Comment on above: Daily until disconti nued starting 03/20/2021 Patient Education \\cps-sql1\\CPS_ PtEducati on\\CDC_FALL_PREVENTION. pdf, \\cps-sql1\\CPS_PtEducati on\\quitting_smoking_032 [id number].pdf [facility] Work Phone: RT Communication Order RT Commun ication Order Respiratory Care STAT Daily until discontinued starting 03/18/2021 [facility] Work Phone: Comment on above: Daily until disconti nued starting 03/18/2021 RT Communication Order RT Commun ication Order Respiratory Care Routine Daily until discontinued starting 03/20/2021 [facility] Work Phone: Comment on above: Daily until disconti nued starting 03/20/2021 End: 03-20-2021 STREP PNEUMONIAE ANTIGEN STREP PNEUMONIAE ANTIGEN Microbiology Routine One Time for 1 Occurrences starting 03/20/2021 until 03/20/2021 [facility] Work Phone: Comment on above: One Time for 1 Occur rences starting 03/20/2021 until 03/20/2021 End: 03-18-2021 Urinalysis Urinalysis Lab STAT One Time for 1 Occurrences starting 03/18/2021 until 03/18/2021 [facility] Work Phone: Comment on above: One Time for 1 Occur rences starting 03/18/2021 until 03/18/2021 End: 03-18-2021 Urine Drug Screen Urine Drug Screen Lab STAT One Time for 1 Occurrences starting 03/18/2021 until 03/18/2021 [facility] Work Phone: Comment on above: One Time for 1 Occur rences starting 03/18/2021 until 03/18/2021 End: 09-22-2020 XR ABDOMEN (KUB) (SINGLE AP VIEW) XR ABDOMEN (KUB) (SINGLE AP VIEW) Imaging Routine Once for 1 Occurrences starting 09/22/2020 until 09/22/2020 [facility] Work Phone: Comment on above: Once for 1 Occurrenc es starting 09/22/2020 until 09/22/2020 Immunizations Immunization Date Immunization Notes Care Provider [facility] 02-02-2021 influenza virus vacc ine, unspecified formulation Rashaad Smith [employer] Work Phone: [facility] 01-10-2017 pneumococcal polysaccharide vaccine, 23 valent Elizabeth Moura MD Work Phone: [facility] 01-10-2017 tetanus toxoid, redu delia diphtheria toxoid, and acellular pertussis vaccine, adsorbed Elizabeth Moura MD Work Phone: [facility] Work Phone: Payers Date Payer Category Payer Self-pay [id number] 2019 Medicaid [id number] 2019 Medicaid [id number]. [id number] 2018 Private Health Insurance [id number]. [id number] 2018 Private Health Insurance [facility] xxxxxxxxx 2018-Present [phone] [address] [place] [address] xxxxxxxxx [id number]. [id number] 1955 Unknown [id number] .840.1.650582.3.579.2. 668 1957 Unknown [id number] 2.840.1.786026.3.579.2. 668 Private Health Insurance Unknown [id number] 2.840.1.970381.3.579.2. 462 Unknown [id number] .840.1.262029.3.579.2. 462 Unknown [id number] .840.1.753453.3.579.2. 462 Unknown [id number] .16840.1.142191.3.579.2. 462 Unknown [id number] .16840.1.507070.3.579.2. 462 Unknown [id number] 2.16840.1.376701.3.579.2. 462 Unknown [id number] 2.16840.1.648590.3.579.2. 462 Unknown [id number] 2.840.1.847039.3.579.2. 462 Unknown [id number] 2.16.840.1.987201.3.579.2. 462 Unknown [id number] 2.16.840.1.281120.3.579.2. 462 Unknown [id number] 2.16.840.1.804447.3.579.2. 462 Unknown [id number] 2.16.840.1.863023.3.579.2. 462 Unknown [id number] 2.16.840.1.765182.3.579.2. 462 Unknown [id number] 2.16.840.1.774349.3.579.2. 462 Unknown [id number] 2..840.1.842821.3.579.2. 462 Unknown [id number] 2.840.1.088715.3.579.2. 462 Unknown [id number] 2.840.1.458220.3.579.2. 462 Unknown [id number] 2.840.1.749435.3.579.2. 462 Unknown [id number] 2.840.1.566080.3.579.2. 462 Unknown [id number] 2.16.840.1.951005.3.579.2. 462 Unknown [id number] 2.840.1.614520.3.579.2. 462 Unknown [id number] 2.840.1.936434.3.579.2. 462 Unknown [id number] 2.840.1.723708.3.579.2. 462 Unknown [id number] 2.16.840.1.679361.3.579.2. 462 Unknown [id number] 2.16.840.1.206043.3.579.2. 462 Unknown [id number] 2.16.840.1.842914.3.579.2. 462 Unknown [id number] 2.16840.1.449384.3.579.2. 462 Unknown [id number] 2.16.840.1.576916.3.579.2. 462 Unknown [id number] 2.840.1.558507.3.579.2. 462 Unknown [id number] 2.840.1.440218.3.579.2. 462 Unknown [id number] 2.840.1.570041.3.579.2. 462 Unknown [id number] 2.840.1.693297.3.579.2. 462 Unknown [id number] 2.840.1.077095.3.579.2. 462 Unknown [id number] 2.840.1.070579.3.579.2. 462 Unknown [id number] 2.840.1.026337.3.579.2. 462 Unknown [id number] 2.840.1.280300.3.579.2. 462 Unknown [id number] 2.840.1.505670.3.579.2. 462 Unknown [id number] .840.1.618352.3.579.2. 462 Unknown [id number] 2.840.1.467713.3.579.2. 462 Unknown [id number] 2.840.1.239052.3.579.2. 462 Unknown [id number] 2.840.1.492011.3.579.2. 462 Unknown [id number] 2.840.1.687211.3.579.2. 462 Unknown [id number] 2.840.1.726666.3.579.2. 462 Unknown [id number] 2.840.1.942938.3.579.2. 462 Unknown [id number] 2.840.1.007118.3.579.2. 462 Unknown [id number] 2.16.840.1.946569.3.579.2. 462 Unknown [id number] 2.16.840.1.653372.3.579.2. 462 Unknown [id number] 2.16.840.1.022515.3.579.2. 462 Unknown [id number] 2.16.840.1.234039.3.579.2. 462 Unknown [id number] 2.16.840.1.449949.3.579.2. 462 Unknown [id number] 2.16.840.1.205154.3.579.2. 462 Unknown [id number] 2.16.840.1.929537.3.579.2. 462 Unknown [id number] 2.16.840.1.976723.3.579.2. 462 Unknown [id number] 2.16.840.1.978268.3.579.2. 462 Unknown [id number] 2.16.840.1.222816.3.579.2. 462 Unknown [id number] 2.16.840.1.455147.3.579.2. 462 Unknown [id number] 2.16.840.1.526768.3.579.2. 462 Unknown [id number] 2.16.840.1.386250.3.579.2. 462 Social History Date Type Detail Facility Tobacco smoking status WYIS Unknown if ever smoked [facility] Work Phone: Start: 1955 Sex Assigned At Not on file [facility] Work Phone: Start: 11-05-2018 End: 06-26-2020 Tobacco smoking status NHIS Former smoker [facility] Work Phone: End: 02-06-2016 History of tobacco use Current smoker [facility] Work Phone: End: 02-06-2016 History of tobacco use Cigar Smoker [facility] Work Phone: Start: 02-05-2018 End: 06-26-2020 Tobacco use and exposure [facility] used [facility] Work Phone: Start: 06-26-2020 End: 05-20-2022 Alcohol intake Current drinker of alcohol (finding) [facility] Work Phone: Start: 07-08-2018 Alcohol Comment 2 times per wo rk, occasionally liquor [facility] Work Phone: Start: 05-10-2022 End: 05-20-2022 Exposure to SARS-CoV-2 (event) Not sure [facility] Work Phone: Start: 09-22-2020 End: 05-20-2022 Alcohol intake [facility] Start: 1955 Sex Assigned At Male [facility] End: 02-06-2016 History of tobacco use Cigarette Smoker [facility] Start: 05-20-2022 End: 10-02-2023 Tobacco use panel [facility] How often to you have a drink containing alcohol? Never [facility] How many standard drinks containing alcohol do you have on a typical day? Patient does not drink [facility] Start: 11-29-2021 End: 08-16-2024 Sex Male (finding) [facility] Tobacco smoking status NHIS Unknown if ever smoked [facility] Work Phone: NEGATED: Highlighted rowStart: 05-22-2019 End: 05-22-2019 Alcohol use Alcohol use [facility] Work Phone: NEGATED: Highlighted rowStart: 05-22-2019 End: 05-22-2019 Assertion Current some day smoker [facility] Work Phone: NEGATED: Highlighted rowStart: 05-22-2019 End: 05-22-2019 Details of drug misuse behavior Details of drug misuse behavior [facility] Work Phone: NEGATED: Highlighted rowStart: 05-22-2019 End: 05-22-2019 Tobacco use and exposure Tobacco use and exposure [facility] Work Phone: Clinical Notes 03-18-2021 to 05-03-2024 [...] to fax the information to the office. [phone] [facility] 05-03-2024 Miscellaneous Notes Gissel is calling to let Dr. Burgos know that the medication he prescribed he not certified, she is going to fax the information to the office. [phone] documented in this encounter [facility] 11-22-2023 History of Presen t illness Narrative Images from the original note were not included. Speech-Language Pathology SPEECH LANGUAGE PATHOLOGY [facility] Modified Barium Swallow Study [...] despite effort. 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 Frequency: Per treating TIN CUTTER Barriers: large osteophytes, bridging with anterior projection [...] MBSS?: No, unable to locate in [facility] Current Diet: Puree diet with ?liquid (no information from [place]) Textures tested: - thin liquid, (cup edge) - mildly thick liquid, (cup edge) - puree, (teaspoon) Patient position: lateral Past Medical History: Past Medical History: Diagnosis Date TREVER (acute kidney injury) ([facility]) ([facility]) Alcohol abuse 07/08/2018 Anxiety C1 spinal cord injury ([facility]) ([facility]) Depression Fall 06/2018 Schizophrenia ([facility]) Past Surgical History: Past Surgical History: Procedure Laterality Date CERVICAL FUSION 07/09/2014 C2-6 cervical fusion GASTROSTOMY TUBE PLACEMENT 07/13/2018 TRACHEOSTOMY 07/13/2018 Admission Diagnosis: Patient Active Problem List Diagnosis Date Noted Respiratory syncytial virus (RSV) 03/22/2021 Hypoxia 03/19/2021 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[facility]/H[facility]) ([facility]) 08/16/2018 Chronic latent schizophrenia ([facility]) 08/15/2018 Prolonged Q-T interval on ECG 08/15/2018 Abdominal wall abscess 08/15/2018 Central cord syndrome ([facility]/H[facility]) ([facility]) 08/15/2018 Respiratory failure after trauma ([facility]) 08/15/2018 Pressure ulcer of sacral region, stage 2 ([facility]) 08/09/2018 Urinary retention 07/28/2018 Acute respiratory failure with hypoxia ([facility]) 07/26/2018 Mild bibasilar atelectasis 07/26/2018 Hospital-acquired pneumonia 07/26/2018 Bilateral pleural effusion 07/26/2018 Ileus (CMS/HCC) ([facility]) 07/23/2018 TREVER (acute kidney injury) ([facility]) 07/23/2018 Hypokalemia 07/21/2018 Vertebral artery occlusion, bilateral 07/11/2018 Vitamin D insufficiency 07/10/2018 Alcohol abuse 07/08/2018 Closed wedge compression fracture of first thoracic vertebra ([facility]) 07/08/2018 Traumatic nondisp spondylolisthesis of C3 vertebra with closed fx, initial encounter ([facility]) 07/08/2018 Closed fracture dislocation of cervical spine ([facility]) 07/08/2018 Pain: Pt denies any current pain. Reason for current admission: Pt with h/o of PEG and trach from 2019. Pt is currently decannulated. 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 Noted very large connective [...] able to eat by mouth. Therapy Time TIN CUTTER Individual Minutes Time In: 1150 Time Out: 1215 Minutes: 25 ZACHARY Sun documented in this encounter [facility] 10-02-2023 Emergency department Note [facility] at bedside at this time Mami Lantigua RN 10/02/23 1421 [facility] 10-02-2023 Emergency department Note [facility] at bedside at this time Mami Lantigua RN 10/02/23 2343 This RN gave report to Marnie at [facility] at this time Mami Lantigua RN 10/02/23 1358 This RN went to evaluate patient, was on 2L o2 and does not wear at baseline, plan is dc, this RN turned o2 off to trial patient, spo2 monitor on Mami Lantigua RN 10/02/[address] via dory Alfaro RN 10/02/23 1043 Emergency Department Encounter [facility] ED Patient: Kathya Hooper [...] are mis-transcribed.) Fei Farooq MD Acute Care [facility] Fei Farooq MD 10/02/23 1125 Pt was brought in via [facility] from [facility] for Left sided facial droop. Per EMS nurse is new and does not know patient very well but he is A&O x 2 at baseline. Per EMS the nurse states it was 20 mins ago. Contacted nurse that was caring for him and she states that was the first time she has seen him for that day, night monitor did not report any problems. EMS states [...] schizophrenia. BS 131. documented in this encounter [facility] 10-02-2023 Emergency department Note This RN gave report to Marnie at [facility] at this time Mami Lantigua RN 10/02/23 9839 [facility] 10-02-2023 Emergency department Note This RN went to evaluate patient, was on 2L o2 and does not wear at baseline, plan is dc, this RN turned o2 off to trial patient, spo2 monitor on Mami Lantigua RN 10/02/23 1325 [facility] 10-02-2023 Emergency department Note Pt to ct via cart Eloisa Alfaro RN 10/02/23 1043 [facility] 10-02-2023 Emergency department Triage note Pt was brought in via [facility] from [facility] for Left sided facial droop. Per EMS nurse is new and does not know patient very well but he is A&O x 2 at baseline. Per EMS the nurse states it was 20 mins ago. Contacted nurse that was caring for him and she states that was the first time she has seen him for that day, night monitor did not report any problems. EMS states [...] facility. Hx of schizophrenia. BS 131. T [facility] 10-02-2023 Physician Emergency department Note Emergency Department Encounter [facility] ED Patient: Kathya Hooper [...] [employer] Fei Farooq MD 10/02/23 1129 [facility] Work Phone: 05-20-2022 Emergency department Note Report called to fdc. Copy of Xray report sent with discharge packet Gary Ghosh RN 05/20/222007 [facility] 05-20-2022 Emergency department Note Report called to fdc. Copy of Xray report sent with discharge packet Gary Ghosh RN 05/20/222007 Emergency Department Encounter [facility] ED Patient: Kathya Hooper : 1955 Date of Evaluation: 05/20/2022 ED Supervising Physician: Abelardo Rios DO I independently examined and evaluated Kathya Hooper. This will serve as my Supervisory note as the licensed clinician of record and shared attestation. I did perform a substantive portion of the visit including all aspects of the Medical Decision Making. I wore appropriate PPE for the entirety of this encounter. In brief, Kathya Hooper is a 67 y.o. male that presents to the emergency department after his G-tube fell out today at the [facility]. Upon inspection of the G-tube, it appears [...] tube which fell out today at the [facility]. Tube was easily replaced in the emergency room. Will order KUB with dye study to confirm placement and discharge back to the fdc. X-ray confirms due to position within the [...] Rios DO 05/20/222014 documented in this encounter [facility] 05-20-2022 Miscellaneous Notes Associated Order(s): Feeding Tube Replacement Procedure Feeding Tube Replacement Performed by: Dejah Hazel DO Authorized by: Abelardo Rios DO Consent: Consent obtained: Verbal Consent given by: Patient [place] protocol: Patient identity confirmed: Verbally with patient [...] DO Resident 05/20/221931 documented in this encounter [facility] 05-20-2022 Note Associated Order(s): Feeding Tube Replacement Procedure Feeding Tube Replacement Performed by: Dejah Hazel DO Authorized by: Abelardo Rios DO Consent: Consent obtained: Verbal Consent given by: Patient [place] protocol: Patient identity confirmed: Verbally with patient [...] immediate complications Dejah Hazel DO Resident 05/20/221931 [facility] Phone: 05-20-2022 Note Associated Order(s): Feeding Tube Replacement Procedure Feeding Tube Replacement Performed by: Dejah Hazel DO Authorized by: Abelardo Rios DO Consent: Consent obtained: Verbal Consent given by: Patient [place] protocol: Patient identity confirmed: Verbally with patient [...] immediate complications Dejah Hazel DO Resident 05/20/221931 [facility] Phone: 05-20-2022 Physician Emergency department Note Emergency Department Encounter [facility] ED Patient: Kathya Hooper : 1955 Date of Evaluation: 05/20/2022 ED Supervising Physician: Abelardo Rios, DO I independently examined and evaluated Kathya Hooper. This will serve as my Supervisory note as the licensed clinician of record and shared attestation. I did perform a substantive portion of the visit including all aspects of the Medical Decision Making. I wore appropriate PPE for the entirety of this encounter. In brief, Kathya Hooper is a 67 y.o. male that presents to the emergency department after his G-tube fell out today at the [facility]. Upon inspection of the G-tube, it appears [...] tube which fell out today at the [facility]. Tube was easily replaced in the emergency room. Will order KUB with dye study to confirm placement and discharge back to the fdc. X-ray confirms due to position within the stomach. Will discharge back to his facility. Labs Reviewed - No data to display XR abdomen 1 view Final Result G-tube position is within the stomach. No evidence of contrast extravasation. Report Dictated on Electronically Signed By: Jaosn Tran Electronically Signed Date/Time: 05/20/2022 7:38 PM [...] to contact the dictating provider for clarification.) DO [place] [facility] [employer] Abelardo Rios DO 05/20/222014 [employer] Work Phone: 03-24-2021 Note Hospitalist Discharg e [...] Treated with antibiotics. He resides in [facility]. He was stablized and discharged Diet [...] Result Date: 03/18/2021 Patient Name: KATHYA HOOPER [id number] Computed Tomography ACCESSION EXAM DATE/TIME PROCEDURE ORDERING PROVIDER [id number] 03/18/2021 16:26 EST CTA Head/Neck w/ + w/o [id number] -alyson CASTRO CPT code 78750 79250 Q9967 Reason For Exam (CTA Head/Neck w/ + w/o contrast) AMS, dysphasia and ?aphasia possibly since yesterday- very poor historian from fdc w/ unclear prior deficits - here w/ [...] airway at the (more content not included)... [facility] 03-24-2021 Hospital course Narrative Hospitalist [...] Treated with antibiotics. He resides in [facility]. He was stablized and discharged Diet [...] Result Date: 03/18/2021 Patient Name: [facility]ATH[facility] HOOPER [facility] [id number] Computed Tomography ACCESSION EXAM DATE/TIME PROCEDURE ORDERING PROVIDER [id number] 03/18/2021 16:26 EST CTA Head/Neck w/ + w/o 037797 alyson ARCHIBALD CPT code 45564 10622 Q9967 Reason For Exam (CTA Head/Neck w/ + w/o contrast) AMS, dysphasia and ?aphasia possibly since yesterday- very poor historian from fdc w/ unclear prior deficits - here w/ [...] Tomography ACCESSION EXAM DATE/TIME PROCEDURE ORDERING PROVIDER [id number] 03/18/2021 16:27 EST CTA Chest w/ + w/o 943162 -CASTRO, Alyson HADDAD CPT code 15195 Q9967 Reason For Exam (CTA Chest w/ [...] Radiology ACCESSION EXAM DATE/TIME PROCEDURE ORDERING PROVIDER [id number] 03/19/2021 17:10 EST CR Chest Portable 278791 -BRADY DESAI CPT code 94497 Reason For Exam (CR Chest Portable) hypoxia [...] Result Date: 03/18/2021 Patient Name: [facility]OPER [id number] Diagnostic Radiology ACCESSION EXAM DATE/TIME PROCEDURE ORDERING PROVIDER [id number] 03/18/2021 15:30 EST CR Chest Portable 101128 -BOO CASTRO CPT code 69624 Reason For Exam (CR Chest Portable) sob, [...] Extended Emergency Contact Information Primary Emergency Contact: [facility] Relation: Parent Past Surgical History: Past Surgical History: Procedure Laterality Date CERVICAL FUSION 07/09/2014 C2-6 cervical fusion GASTROSTOMY TUBE PLACEMENT 07/13/2018 TRACHEOSTOMY 07/13/2018 Immunization History: Immunization History Administered Date(s) Administered Pneumococcal Polysaccharide ([id number]) 01/10/2017 Tdap (Boostrix, Adacel) 01/10/2017 Active Problems: Patient Active Problem List Diagnosis Code Closed fracture dislocation of cervical spine ([facility]) S12.9XXA Traumatic nondisp spondylolisthesis of C3 vertebra with closed fx, initial encounter ([facility]) S12.231A Closed wedge compression fracture of first thoracic vertebra ([facility]) S22.010A Central cord syndrome ([facility]) S14.129A Chronic latent schizophrenia ([facility]) F21 Alcohol abuse F10.10 Respiratory failure after trauma ([facility]) J96.90 Vitamin D insufficiency E55.9 Vertebral artery occlusion, 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 Hypokalemia E87.6 Ileus ([facility]) K56.7 TREVER (acute kidney injury) ([facility]) N17.9 Acute respiratory failure with hypoxia ([facility]) J96.01 Hospital-acquired pneumonia J18.9, Y95 Bilateral pleural effusion J90 Mild bibasilar atelectasis J98.11 Urinary retention R33.9 Prolonged Q-T interval on ECG R94.31 Pressure ulcer of sacral region, stage 2 ([facility]) L89.152 Abdominal wall abscess L02.211 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[facility]) K65.4 Hypoxia R09.02 Respiratory syncytial [...] MENTAL STATUS:} IV Access: { CHRIS IV ACCESS:429388089} Nursing Mobility/ADLs: Walking {P DME ADLs:484203910} Transfer {P DME ADLs:531972293} Bathing {P DME ADLs:717874502} Dressing {CHP DME ADLs:858368290} Toileting {P DME ADLs:056020863} Feeding {P DME ADLs:414563722} Mercantile Reporter {P DME ADLs:507706846} Med Delivery { CHRIS MED Delivery:330529616} Wound Care Documentation and Therapy: Negative Pressure Wound Therapy Abdomen Left (Active) Number of days: 947 Wound Sacrum Mid (Active) Number of days: Elimination: Continence: Bowel: {YES / NO:} Bladder: {YES / NO:} Urinary Catheter: {Urinary Catheter:189322350} Colostomy/Ileostomy/Ileal Conduit: {YES / NO:} Date of Last BM: No intake or output data in the 24 hours ending 03/24/21 1013 I/O last 3 completed shifts: In: 660 [NG/GT:660] Out: - Safety Concerns: { CHRIS Safety Concerns:610376586} Impairments/Disabilities: { CHRIS Impairments/Disabilities:82813044 3} Nutrition Therapy: Current Nutrition Therapy: { CHRIS Diet List:051684453} Routes of Feeding: {[facility] DME Other Feedings:199833415} Liquids: {[facility] liquid thickness:55330} Daily Fluid Restriction: {[facility] D[facility] Yes amt example:639010877} Last Modified Barium Swallow with Video (Video Swallowing Test): {Done Not Done Date:} Treatments at the Time of Hospital Discharge: Respiratory Treatments: Oxygen Therapy: {Therapy; copd oxygen:89225} Ventilator: {[facility] Vent List:524607898} Rehab Therapies: {THERAPEUTIC INTERVENTION:8566147932} Weight Bearing Status/Restrictions: {[facility] Weight Bearin} Other Medical Equipment (for information only, NOT a DME order): {EQUIPMENT:384814635} Other Treatments: Patient's personal belongings (please select all that are sent with patient): {[facility] DME Belongings:692381128} RN SIGNATURE: {Esignature:222632971} CASE MANAGEMENT/SOCIAL WORK SECTION Inpatient Status Date: Readmission Risk Assessment Score: Readmission Risk Risk of Unplanned Readmission: 25 Discharging to Facility/ Agency Name: [facility] Address: [facility] [address] Dialysis Facility (if applicable) Name: Address: Dialysis Schedule: Phone: Fax: Tobacco Warehouse Manager/Uranium Processing Supervisor signature: PHYSICIAN SECTION Prognosis: Good Condition at Discharge: Stable Rehab Potential (if transferring to Rehab): Good Recommended Labs or Other Treatments After Discharge: Physician Certification: I certify the above information and transfer of Kathya Hooper is necessary for the continuing treatment of the diagnosis listed and that he requires Penitentiary Facility for greater 30 days. Update Admission [...] loss Fluid Accumulation: No significant fluid accumulation Delimer Strength: Not Performed Estimated Daily Nutrient Needs: Energy (kcal): 2966-9069 (25-30 kcal/kg IBW); Weight Used for Energy Requirements: [place] (86.2 kg) Protein (g): 86-103 (1.0-1.2 g protein/kg IBW); Weight Used for Protein Requirements: [place] (86.2 kg) Fluid (ml/day): per . At [...] on 03/02/21, October weight= 185.5# on 01/29/21) [place] Body Weight: 190 lbs; % [place] Body Weight 97.8 % BMI: 24 Adjusted [...] Skin, Weight Discharge Planning: Enteral Nutrition Contact: *[phone] Images from the original note were not [...] from the original note were not included. [facility] [address] [place] [address] Patient - Kathya Hooper, Age - 66 y.o. - 1955 Room Number - 465/[phone] Consulting - Rafa Michel MD Primary Care Physician - No primary care provider on file. [facility] [id number] Date of Admission - 03/19/2021 3:52 PM [...] bed. Pt thought there was a helicopter repairer in the corner of his room. When pt got his meds he calmed down. Pt now watching tv. Call light within reach. Bed alarm on. Images from the original note were not included. [facility] [address] [place], [place] [id number] Patient - Kathya Hooper, Age - 66 y.o. - 1955 Room Number - 465/[phone] Consulting - Rafa Michel MD Primary Care Physician - No primary care provider on file. [facility] [id number] Date of Admission - 03/19/2021 3:52 PM [...] No primary care provider on file. Room#: 465/4653 Patient seen and examined. Laying in bed. [...] 66 y.o. - 1955 Room Number - [id number] [facility] - [address] [facility] - [id number] Date of Admission - 03/19/2021 3:52 PM [...] Date 03/21/21 0000 - 03/21/21 2359 Shift [id number] [phone] 24 Hour Total INTAKE NG/GT(mL/kg) 542(6.4) 542(6.4) [...] included. Hospitalist Progress Note 03/21/2021 9:41 AM [phone]: Please page me for patient care issues. [phone]: Please page [facility] night Hospitalist for any issues. [...] Trach PEG 07/13/2018. [facility] from [facility] to [facility] ED with worsening SOB. Evaluated in ED [...] loss Fluid Accumulation: No significant fluid accumulation [place]imer Strength: Not Performed Estimated Daily Nutrient Needs: Energy (kcal): 9392-0565 (25-30 kcal/kg IBW); Weight Used for Energy Requirements: [place] (86.2 kg) Protein (g): 86-103 (1.0-1.2 g protein/kg IBW); Weight Used for Protein Requirements: [place] (86.2 kg) Fluid (ml/day): per MD. At facility receivin mL free water daily from EN and flushes; Method Used for Fluid Requirements: Other (Comment) Nutrition Related Findings: Massimo score= 15. No skin breakdown or edema noted. S/p Trach/PEG, per [facility] note, does not take any food, drink [...] on 03/02/21, October weight= 185.5# on 01/29/21) [place] Body Weight: 190 lbs; % [place] Body Weight 97.8 % BMI: 23.9 BMI [...] Nutrition Contact: 2430 Speech Language Pathology Facility/Department: [facility] TELEMETRY CLINICAL BEDSIDE SWALLOW EVALUATION NAME: Kathya [...] states that she is the only family [phone] Images from the original note were not included. Hospitalist Progress Note 03/20/2021 9:58 AM [phone]: Please page me for patient care issues. [phone]: Please page [facility] night Hospitalist for any issues. [...] NIF -20 documented in this encounter [facility] Work Phone: 03-18-2021 Hospital Discharg Boo Stringer MD - 03/18/2021 Mr. Hooper was seen at the [facility] emergency department for low oxygen levels. [...] cannot be sent through Care Everywhere.Viral Infections (Singaporean)documented in this encounter [facility] Work Phone: Evaluation note Diagnosis PEG tube malfunction (HCC)- Primary Mechanical complication of gastrostomy documented in this encounter [facility] Work Phone: Evaluation note* Diagnosis Feeding tube dysfunction, initial encounter- Primary documented in this encounter [facility] Work Phone: Evaluation note* Diagnosis Respiratory syncytial virus (RSV)- Primary Hypoxia Hypoxemia documented in [facility] Work Phone: Evaluation note* Diagnosis Respiratory syncytial virus (RSV)- Primary Hypoxia Hypoxemia documented in this encounter [facility] Work Phone: Evaluation note* Diagnosis PEG tube malfunction (HCC)- Primary Mechanical complication of gastrostomy documented in this encounter [facility] Work Phone: Evaluation note* Diagnosis Contusion of right hip, initial encounter- Primary documented in this encounter [facility] Work Phone: Evaluation noteNo assessment information available [facility] Work Phone: Evaluation note* Diagnosis Dyspnea, unspecified type- Primary [facility] Diagnosis Dysphagia, oropharyngeal phase Feeding difficulties Feeding difficulties and mismanagement [facility]* Diagnosis Dysphagia, oropharyngeal phase- Primary Feeding difficulties Feeding difficulties and mismanagement Dysphagia, oropharyngeal phase Feeding difficulties Feeding difficulties and mismanagement [facility] Diagnosis Dislodged gastrostomy tube- Primary documented in this encounter [facility] note* Diagnosis Chronic cough Cough documented in this encounter [facility] note* Diagnosis Chronic cough- Primary Cough Chronic cough Cough [facility]* Attachments The following attachments cannot be sent through Care Everywhere. * PEG (Percutaneous Endoscopic Gastrostomy): Post-op (Singaporean) documented in this [facility] Work Phone: Hospital Discharge instructions* Attachments The following attachments cannot be sent through Care Everywhere. * Feeding Tube: General Info (Singaporean) documented in this [facility] Work Phone[facility]* Instructions* Mary Cochran PA-C - 05/15/2021 Please return to the ED if you have any new or worsening symptoms. documented in this [facility] Work Phone: Hospital Discharge instructions* Attachments The following attachments cannot be sent through Care Everywhere. * Hip Pain (Singaporean) * Contusion (Singaporean) documented in this [facility] Work Phone: Hospital Discharge instructions* Attachments The following attachments cannot be sent through Care Everywhere. * Shortness of Breath (Dyspnea) Discharge Instructions (Singaporean) documented in this [facility] Discharge instructions* Attachments The following attachments cannot be sent through Care Everywhere. * How to Care for Your Gastrostomy Tube (Singaporean) [facility] (narrative)No reason for referral information [facility]WAk[facility] Work Phone: Reason for visit Narrative* Imaging (Routine) - Closed Specialty Diagnoses / Procedures Referred By Contac t Referred To Contact Radiology Diagnoses Chronic cough Procedures CT chest wo IV contrast Rashaad Smith APRN - BRICK MA[employer]ER [address] [address] Phone: tel: fax: Referral ID Status Reason Start Date Expiration Date Visits Re quested Visits Authorized [id number] Closed 06/12/2024 06/12/2025 1 1 [facility] Summary Purpose Family History No Family History Records FoundNo Family History Records FoundThere may be information available, but it has not been provided by the sender.No Family History Records FoundNo Family History Records FoundNo Family History Records FoundNo Family History Records Found Advance Directives No Advanced Directives Records FoundDocuments on File Type Date Recorded Patient Fumigator And Sterilizer Expl anation ACP-Advance Directive ACP-Advance Directive 08/07/2018 1:53 PM ACP-Power of Assistant Chief Nursing Officer Latest Code Status on File Code Status Date Activated Date Inactivated Comments Full Code 08/15/2018 8:27 PM 08/22/2018 4:31 PM Full Code 08/15/2018 8:12 PM 08/15/2018 8:27 PM Full Code 07/08/2018 8:28 PM 08/01/2018 2:39 PM Documents on File Type Date Recorded Patient Fumigator And Sterilizer Expl anation ACP-Advance Directive ACP-Power of Assistant Chief Nursing Officer ACP-Advance Directive 08/07/2018 1:53 PM Latest Code Status on File Code Status Date Activated Date Inactivated Comments Full Code 03/20/2021 12:17 AM Full Code 08/15/2018 8:27 PM 08/22/2018 4:31 PM Documents on File Type Date Recorded Patient Fumigator And Sterilizer Expl anation ACP-Advance Directive ACP-Power of Assistant Chief Nursing Officer ACP-Advance Directive 03/26/2021 9:48 AM ACP-Advance Directive 08/07/2018 1:53 PM Latest Code Status on File Code Status Date Activated Date Inactivated Comments Full Code 03/20/2021 12:17 AM 03/24/2021 3:23 PM Documents on File Type Date Recorded Patient Fumigator And Sterilizer Expl anation Advance Directives and Livin g Will Advance Directives and Livin g Will 08/07/2018 1:53 PM Power of Assistant Chief Nursing Officer Documents on File Type Date Recorded Patient Fumigator And Sterilizer Expl anation Advance Directives and Livin g Will 05/23/2022 10:48 AM Advance Directives and Livin g Will 03/19/2021 Documents on File Type Date Recorded Patient Fumigator And Sterilizer Expl anation Advance Directives and Living Will 03/19/2021 Documents on File Type Date Recorded Patient Fumigator And Sterilizer Expl 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 * Feeding Tube: General Info (Singaporean) documented in this encounter Assessments Diagnosis PEG [...] Complaint and Reason for Visit Chief Complaint PRISON LABWORK PRISON LAB WORK PRISON LABWORK PRISON LABWORK PRISON LABWORK PRISON LAB WORK PRISON LABWORK PRISON LABWORK PRISON LABWORK PRISON LABWORK PRISON LABWORK PRISON LAB WORK PRISON LABWORK NURING HOME LABWORK PRISON LABWORK PRISON LAB WORK PRISON LABWORK Chief Complaint PRISON LABWORK PRISON LABWORK PRISON LABWORK PRISON LAB WORK PRISON LABWORK NURING HOME LABWORK PRISON LABWORK PRISON LAB WORK PRISON LABWORK PRISON LABWORK PRISON LAB WORK PRISON LAB WORK PRISON BLOOD WORK PRISON LABWORK PRISON LAB WORK Chief Complaint PRISON LABWORK PRISON LABWORK PRISON LAB WORK PRISON LABWORK NURING HOME LABWORK PRISON LABWORK PRISON LAB WORK PRISON LABWORK PRISON LABWORK PRISON LAB WORK PRISON LAB WORK PRISON BLOOD WORK PRISON LABWORK LABWORK LABWORK PRISON LAB WORK Chief Complaint PRISON LABWORK PRISON LAB WORK PRISON LABWORK NURING HOME LABWORK PRISON LABWORK PRISON LAB WORK PRISON LABWORK PRISON LABWORK PRISON LAB WORK PRISON LAB WORK PRISON BLOOD WORK PRISON LABWORK LABWORK LABWORK PRISON LAB WORK Chief Complaint PRISON LAB WOR K PRISON LABWORK NURING HOME LABWORK PRISON LABWORK PRISON LAB WORK PRISON LABWORK PRISON LABWORK PRISON LAB WORK PRISON LAB WORK PRISON BLOOD WORK PRISON LABWORK LABWORK LABWORK PRISON LAB WORK Chief Complaint PRISON LAB WOR K PRISON LABWORK NURING HOME LABWORK PRISON LABWORK PRISON LAB WORK PRISON LABWORK PRISON LABWORK PRISON LAB WORK PRISON LAB WORK PRISON BLOOD WORK PRISON LABWORK LABWORK LABWORK PRISON LAB WORK LABWORK PRISON LABWORK Chief Complaint PRISON LABWORK NURING HOME LABWORK PRISON LABWORK PRISON LAB WORK PRISON LABWORK PRISON LABWORK PRISON LAB WORK PRISON LAB WORK PRISON BLOOD WORK PRISON LABWORK LABWORK LABWORK PRISON LAB WORK LABWORK PRISON LABWORK PRISON LAB WORK Chief Complaint PRISON BLOOD W ORK PRISON LABWORK PRISON LABWORK LABWORK LABWORK PRISON LAB WORK LABWORK PRISON LABWORK PRISON LAB WORK LABWORK PRISON LAB WORK PRISON LAB WORK LABWORK PRISON LAB WORK Chief Complaint PRISON BLOOD W ORK PRISON LABWORK PRISON LABWORK LABWORK LABWORK PRISON LAB WORK LABWORK PRISON LABWORK PRISON LAB WORK LABWORK PRISON LAB WORK PRISON LAB WORK LABWORK PRISON LAB WORK LABWORK Chief Complaint LABWORK LABWORK PRISON LAB WORK LABWORK PRISON LABWORK PRISON LAB WORK LABWORK PRISON LAB WORK PRISON LAB WORK LABWORK PRISON LAB WORK LABWORK PRISON LAB WORK Chief Complaint LABWORK PRISON LAB WORK LABWORK PRISON LABWORK PRISON LAB WORK LABWORK PRISON LAB WORK PRISON LAB WORK LABWORK PRISON LAB WORK LABWORK PRISON LAB WORK PRISON LABWORK Chief Complaint LABWORK PRISON LABWORK PRISON LAB WORK LABWORK PRISON LAB WORK PRISON LAB WORK LABWORK PRISON LAB WORK LABWORK PRISON LAB WORK PRISON LABWORK PRISON LABWORK LABWORK PRISON LAB WORK Chief Complaint PRISON LAB WOR K LABWORK PRISON LAB WORK PRISON LAB WORK LABWORK PRISON LAB WORK LABWORK PRISON LAB WORK PRISON LABWORK PRISON LABWORK LABWORK PRISON LAB WORK PRISON LAB WORK Chief Complaint PRISON LAB WOR K PRISON LAB WORK LABWORK PRISON LAB WORK LABWORK PRISON LAB WORK PRISON LABWORK PRISON LABWORK LABWORK PRISON LAB WORK PRISON LAB WORK LABWORK PRISON LAB WORK Chief Complaint PRISON LAB WOR K LABWORK PRISON LAB WORK LABWORK PRISON LAB WORK PRISON LABWORK PRISON LABWORK LABWORK PRISON LAB WORK PRISON LAB WORK LABWORK PRISON LAB WORK PRISON LAB WORK Chief Complaint PRISON LAB WOR K LABWORK PRISON LAB WORK PRISON LABWORK PRISON LABWORK LABWORK PRISON LAB WORK PRISON LAB WORK LABWORK PRISON LAB WORK LABWORK PRISON LAB WORK PRISON LAB WORK PRISON LABWORK PRISON LABWORK Chief Complaint LABWORK PRISON LAB WORK PRISON LABWORK PRISON LABWORK LABWORK PRISON LAB WORK PRISON LAB WORK LABWORK PRISON LAB WORK LABWORK PRISON LAB WORK PRISON LAB WORK PRISON LABWORK LABWORK PRISON LABWORK Chief Complaint LABWORK PRISON LAB WORK PRISON LAB WORK LABWORK PRISON LAB WORK LABWORK PRISON LAB WORK PRISON LAB WORK PRISON LABWORK LABWORK PRISON LABWORK PRISON LAB WORK Chief Complaint PRISON LAB WOR K LABWORK PRISON LAB WORK PRISON LAB WORK PRISON LABWORK LABWORK PRISON LABWORK PRISON LAB WORK LABWORK LABWORK LABWORK LABWORK PRISON LABWORK PRISON LAB WORK LABWORK LABWORK Chief Complaint LABWORK PRISON LAB WORK PRISON LAB WORK PRISON LABWORK LABWORK PRISON LABWORK PRISON LAB WORK LABWORK LABWORK LABWORK LABWORK PRISON LABWORK PRISON LAB WORK LABWORK LABWORK PRISON LABWORK Chief Complaint PRISON LAB WOR K PRISON LAB WORK PRISON LABWORK LABWORK PRISON LABWORK PRISON LAB WORK LABWORK LABWORK LABWORK LABWORK PRISON LABWORK PRISON LAB WORK LABWORK LABWORK PRISON LABWORK PRISON LAB WORK Chief Complaint PRISON LABWORK LABWORK PRISON LABWORK PRISON LAB WORK LABWORK LABWORK LABWORK LABWORK PRISON LABWORK PRISON LAB WORK LABWORK LABWORK PRISON LABWORK PRISON LAB WORK PRISON LABWORK PRISON LAB WORK Chief Complaint LABWORK PRISON LABWORK PRISON LAB WORK LABWORK LABWORK LABWORK LABWORK PRISON LABWORK PRISON LAB WORK LABWORK LABWORK PRISON LABWORK PRISON LAB WORK PRISON LABWORK LABWORK PRISON LAB WORK Chief Complaint LABWORK LABWORK LABWORK LABWORK PRISON LABWORK PRISON LAB WORK LABWORK LABWORK PRISON LABWORK PRISON LAB WORK PRISON LABWORK LABWORK PRISON LAB WORK LABWORK PRISON LABWORK Chief Complaint LABWORK PRISON LABWORK PRISON LAB WORK LABWORK LABWORK PRISON LABWORK PRISON LAB WORK PRISON LABWORK LABWORK PRISON LAB WORK LABWORK PRISON LABWORK LABWORK LABWORK Chief Complaint PRISON LABWORK PRISON LAB WORK LABWORK LABWORK PRISON LABWORK PRISON LAB WORK PRISON LABWORK LABWORK PRISON LAB WORK LABWORK PRISON LABWORK LABWORK LABWORK LABWORK PRISON LAB WORK PRISON LAB WORK PRISON LABWORK Chief Complaint PRISON LABWORK PRISON LAB WORK LABWORK LABWORK PRISON LABWORK PRISON LAB WORK PRISON LABWORK LABWORK PRISON LAB WORK LABWORK PRISON LABWORK LABWORK LABWORK LABWORK PRISON LAB WORK PRISON LAB WORK PRISON LABWORK PRISON LABWORK Chief Complaint LABWORK LABWORK PRISON LABWORK PRISON LAB WORK PRISON LABWORK LABWORK PRISON LAB WORK LABWORK PRISON LABWORK LABWORK LABWORK LABWORK PRISON LAB WORK PRISON LAB WORK PRISON LABWORK PRISON LABWORK PRISON LAB WORK LABWORK Chief Complaint PRISON LABWORK PRISON LAB WORK PRISON LABWORK LABWORK PRISON LAB WORK LABWORK PRISON LABWORK LABWORK LABWORK LABWORK PRISON LAB WORK PRISON LAB WORK PRISON LABWORK PRISON LABWORK PRISON LAB WORK LABWORK PRISON LABWORK Chief Complaint PRISON LABWORK LABWORK PRISON LAB WORK LABWORK PRISON LABWORK LABWORK LABWORK LABWORK PRISON LAB WORK PRISON LAB WORK PRISON LABWORK PRISON LABWORK PRISON LAB WORK LABWORK PRISON LABWORK PRISON LAB WORK Chief Complaint LABWORK PRISON LABWORK LABWORK LABWORK LABWORK PRISON LAB WORK PRISON LAB WORK PRISON LABWORK PRISON LABWORK PRISON LAB WORK LABWORK PRISON LABWORK PRISON LAB WORK PRISON LABWORK PRISON LAB WORK Chief Complaint LABWORK PRISON LABWORK PRISON LAB WORK PRISON LABWORK PRISON LAB WORK PRISON LABWORK PRISON LABWORK PRISON LABWORK PRISON LABWORK PRISON LAB WORK LABWORK LABWORK PRISON LABWORK Chief Complaint PRISON LABWORK PRISON LAB WORK PRISON LABWORK PRISON LABWORK PRISON LABWORK PRISON LABWORK PRISON LAB WORK LABWORK LABWORK PRISON LABWORK LABWORK PRISON LAB WORK PRISON LAB WORK Chief Complaint PRISON LABWORK PRISON LABWORK PRISON LABWORK PRISON LABWORK PRISON LAB WORK LABWORK LABWORK PRISON LABWORK LABWORK PRISON LAB WORK PRISON LAB WORK PRISON LABWORK PRISON LABWORK PRISON LAB WORK PRISON LAB WORK Chief Complaint PRISON LABWORK PRISON LABWORK PRISON LABWORK PRISON LAB WORK LABWORK LABWORK PRISON LABWORK LABWORK PRISON LAB WORK PRISON LAB WORK PRISON LABWORK PRISON LABWORK PRISON LAB WORK PRISON LAB WORK Chief Complaint PRISON LABWORK PRISON LABWORK PRISON LABWORK PRISON LAB WORK LABWORK LABWORK PRISON LABWORK LABWORK PRISON LAB WORK PRISON LAB WORK PRISON LABWORK PRISON LABWORK PRISON LAB WORK PRISON LAB WORK PRISON LABWORK LABWORK Chief Complaint PRISON LAB WOR K LABWORK LABWORK PRISON LABWORK LABWORK PRISON LAB WORK PRISON LAB WORK PRISON LABWORK PRISON LABWORK PRISON LAB WORK PRISON LAB WORK PRISON LABWORK LABWORK PRISON LAB WORK LABWORK Chief Complaint PRISON LAB WOR K LABWORK LABWORK PRISON LABWORK LABWORK PRISON LAB WORK PRISON LAB WORK PRISON LABWORK PRISON LABWORK PRISON LAB WORK PRISON LAB WORK PRISON LABWORK LABWORK PRISON LAB WORK LABWORK PRISON LABWORK PRISON LAB WORK Chief Complaint LABWORK LABWORK PRISON LABWORK LABWORK PRISON LAB WORK PRISON LAB WORK PRISON LABWORK PRISON LABWORK PRISON LAB WORK PRISON LAB WORK PRISON LABWORK LABWORK PRISON LAB WORK LABWORK PRISON LABWORK PRISON LAB WORK LABWORK\\ Chief Complaint LABWORK PRISON LABWORK LABWORK PRISON LAB WORK PRISON LAB WORK PRISON LABWORK PRISON LABWORK PRISON LAB WORK PRISON LAB WORK PRISON LABWORK LABWORK PRISON LAB WORK LABWORK PRISON LABWORK PRISON LAB WORK LABWORK\\ LABWORK Chief Complaint PRISON LAB WOR K PRISON LAB WORK PRISON LABWORK PRISON LABWORK PRISON LAB WORK PRISON LAB WORK PRISON LABWORK LABWORK PRISON LAB WORK LABWORK PRISON LABWORK PRISON LAB WORK LABWORK\\ LABWORK PRISON LAB WORK LABWORK Chief Complaint PRISON LAB WOR K PRISON LABWORK PRISON LABWORK PRISON LAB WORK PRISON LAB WORK PRISON LABWORK LABWORK PRISON LAB WORK LABWORK PRISON LABWORK PRISON LAB WORK LABWORK\\ LABWORK PRISON LAB WORK LABWORK LABWORK Chief Complaint PRISON LABWORK PRISON LABWORK PRISON LAB WORK PRISON LAB WORK PRISON LABWORK LABWORK PRISON LAB WORK LABWORK PRISON LABWORK PRISON LAB WORK LABWORK\\ LABWORK PRISON LAB WORK LABWORK PRISON LABWORK LABWORK Chief Complaint PRISON LAB WOR K PRISON LABWORK LABWORK PRISON LAB WORK LABWORK PRISON LABWORK PRISON LAB WORK LABWORK\\ LABWORK PRISON LAB WORK LABWORK PRISON LABWORK LABWORK PRISON LABWORK PRISON LAB WORK LABWORK PRISON LAB WORK Chief Complaint PRISON LABWORK LABWORK PRISON LAB WORK LABWORK PRISON LABWORK PRISON LAB WORK LABWORK\\ LABWORK PRISON LAB WORK LABWORK PRISON LABWORK LABWORK PRISON LABWORK PRISON LAB WORK LABWORK PRISON LAB WORK LABWORK Chief Complaint PRISON LAB WOR K LABWORK PRISON LABWORK PRISON LAB WORK LABWORK\\ LABWORK PRISON LAB WORK LABWORK PRISON LABWORK LABWORK PRISON LABWORK PRISON LAB WORK LABWORK PRISON LAB WORK LABWORK LABWORK Chief Complaint PRISON LAB WOR K LABWORK\\ LABWORK PRISON LAB WORK LABWORK PRISON LABWORK LABWORK PRISON LABWORK PRISON LAB WORK LABWORK PRISON LAB WORK LABWORK LABWORK LABWORK LABWORK LABWORK Chief Complaint LABWORK\\ LABWORK PRISON LAB WORK LABWORK PRISON LABWORK LABWORK PRISON LABWORK PRISON LAB WORK LABWORK PRISON LAB WORK LABWORK LABWORK LABWORK LABWORK LABWORK LABWORK Chief Complaint PRISON LAB WOR K LABWORK PRISON LABWORK LABWORK PRISON LABWORK PRISON LAB WORK LABWORK PRISON LAB WORK LABWORK LABWORK LABWORK LABWORK LABWORK LABWORK LABWORK Chief Complaint PRISON LABWORK LABWORK PRISON LABWORK PRISON LAB WORK LABWORK PRISON LAB WORK LABWORK LABWORK LABWORK LABWORK LABWORK LABWORK LABWORK PRISON LAB WORK LABWORK Chief Complaint LABWORK PRISON LABWORK PRISON LAB WORK LABWORK PRISON LAB WORK LABWORK LABWORK LABWORK LABWORK LABWORK LABWORK LABWORK PRISON LAB WORK LABWORK LABWORK LABWORK Chief Complaint LABWORK PRISON LAB WORK LABWORK LABWORK LABWORK LABWORK LABWORK LABWORK LABWORK PRISON LAB WORK LABWORK LABWORK LABWORK PRISON LAB WORK PRISON LAB WORK Chief Complaint PRISON LAB WOR K LABWORK LABWORK LABWORK LABWORK LABWORK LABWORK LABWORK PRISON LAB WORK LABWORK LABWORK LABWORK PRISON LAB WORK PRISON LAB WORK LABWORK Chief Complaint PRISON LABWORK PRISON LAB WORK PRISON LAB WORK PRISON LABWORK LABWORK PRISON LAB WORK LABWORK PRISON LABWORK PRISON LAB WORK LABWORK\\ LABWORK PRISON LAB WORK LABWORK PRISON LABWORK LABWORK PRISON LABWORK Chief Complaint PRISON LABWORK PRISON LAB WORK PRISON LAB WORK PRISON LABWORK LABWORK PRISON LAB WORK LABWORK PRISON LABWORK PRISON LAB WORK LABWORK\\ LABWORK PRISON LAB WORK LABWORK PRISON LABWORK LABWORK PRISON LABWORK PRISON LAB WORK Chief Complaint Admit Date PRISON LAB WORK March 11 5:00am PRISON LAB WORK March 18 5:00am LABWORK March 25, 2024 5:00am LABWORK April 01, 2024 5 :00am PRISON LAB WORK April 08, 2024 5:00am LABWORK April 15, 2024 5:00am LABWORK April 22, 2024 5:00am PRISON LAB WORK April 29 5:00am LABWORK May 06, 2024 5: 00am PRISON LAB WORK May 13, 2024 4:00am LABWORK May 20, 2024 5 :00am PRISON LAB WORK May 27, 2024 5:00am LABWORK June 03, 2024 5 :00am LABWORK June 07, 2024 5 :00am PRISON LAB WORK June 10 5:00am LABWORK June 17, 2024 5:00am PRISON LAB WORK June 24 5:00am Chief Complaint Admit Date LABWORK April 01, 2024 5 :00am PRISON LAB WORK April 08, 2024 5:00am LABWORK April 15, 2024 5:00am LABWORK April 22, 2024 5:00am PRISON LAB WORK April 29 5:00am LABWORK May 06, 2024 5: 00am PRISON LAB WORK May 13, 2024 4:00am LABWORK May 20, 2024 5 :00am PRISON LAB WORK May 27, 2024 5:00am LABWORK June 03, 2024 5 :00am LABWORK June 07, 2024 5 :00am PRISON LAB WORK June 10 5:00am LABWORK June 17, 2024 5:00am PRISON LAB WORK June 24 5:00am PRISON LAB WORK June 27 2:00am PRISON LAB WORK July 01, 2024 4: 00am LABWORK July 08, 2024 5:0 0am PRISON LAB WORK July 16, 2024 4 :00am Chief Complaint Admit Date PRISON LAB WORK April 08, 2024 5:00am LABWORK April 15, 2024 5:00am LABWORK April 22, 2024 5:00am PRISON LAB WORK April 29 5:00am LABWORK May 06, 2024 5: 00am PRISON LAB WORK May 13, 2024 4:00am LABWORK May 20, 2024 5 :00am PRISON LAB WORK May 27, 2024 5:00am LABWORK June 03, 2024 5 :00am LABWORK June 07, 2024 5 :00am PRISON LAB WORK June 10 5:00am LABWORK June 17, 2024 5:00am PRISON LAB WORK June 24 5:00am PRISON LAB WORK June 27 2:00am PRISON LAB WORK July 01, 2024 4: 00am LABWORK July 08, 2024 5:0 0am PRISON LAB WORK July 15, 2024 5 :00am PRISON LAB WORK July 16, 2024 4 :00am Chief Complaint Admit Date LABWORK April 15, 2024 5:00am LABWORK April 22, 2024 5:00am PRISON LAB WORK April 29 5:00am LABWORK May 06, 2024 5: 00am PRISON LAB WORK May 13, 2024 4:00am LABWORK May 20, 2024 5 :00am PRISON LAB WORK May 27, 2024 5:00am LABWORK June 03, 2024 5 :00am LABWORK June 07, 2024 5 :00am PRISON LAB WORK June 10 5:00am LABWORK June 17, 2024 5:00am PRISON LAB WORK June 24 5:00am PRISON LAB WORK June 27 2:00am PRISON LAB WORK July 01, 2024 4: 00am LABWORK July 08, 2024 5:0 0am PRISON LAB WORK July 15, 2024 5 :00am PRISON LAB WORK July 16, 2024 4 :00am PRISON LAB WORK July 22, 2024 5 :00am Chief Complaint Admit Date LABWORK April 22, 2024 5:00am PRISON LAB WORK April 29 5:00am LABWORK May 06, 2024 5: 00am PRISON LAB WORK May 13, 2024 4:00am LABWORK May 20, 2024 5 :00am PRISON LAB WORK May 27, 2024 5:00am LABWORK June 03, 2024 5 :00am LABWORK June 07, 2024 5 :00am PRISON LAB WORK June 10 5:00am LABWORK June 17, 2024 5:00am PRISON LAB WORK June 24 5:00am PRISON LAB WORK June 27 2:00am PRISON LAB WORK July 01, 2024 4: 00am LABWORK July 08, 2024 5:0 0am PRISON LAB WORK July 15, 2024 5 :00am PRISON LAB WORK July 16, 2024 4 :00am PRISON LAB WORK July 22, 2024 5 :00am LABWORK July 29, 2024 5:0 0am Chief Complaint Admit Date PRISON LAB WORK May 13, 2024 4:00am LABWORK May 20, 2024 5 :00am PRISON LAB WORK May 27, 2024 5:00am LABWORK June 03, 2024 5 :00am LABWORK June 07, 2024 5 :00am PRISON LAB WORK June 10 5:00am LABWORK June 17, 2024 5:00am PRISON LAB WORK June 24 5:00am PRISON LAB WORK June 27 2:00am PRISON LAB WORK July 01, 2024 4: 00am LABWORK July 08, 2024 5:0 0am PRISON LAB WORK July 15, 2024 5 :00am PRISON LAB WORK July 16, 2024 4 :00am PRISON LAB WORK July 22, 2024 5 :00am LABWORK July 29, 2024 5:0 0am PRISON LAB WORK August 05, 2024 5: 00am PRISON LAB WORK August 12, 2024 5 :00am Chief Complaint Admit Date LABWORK May 20, 2024 5 :00am PRISON LAB WORK May 27, 2024 5:00am LABWORK June 03, 2024 5 :00am LABWORK June 07, 2024 5 :00am PRISON LAB WORK June 10 5:00am LABWORK June 17, 2024 5:00am PRISON LAB WORK June 24 5:00am PRISON LAB WORK June 27 2:00am PRISON LAB WORK July 01, 2024 4: 00am LABWORK July 08, 2024 5:0 0am PRISON LAB WORK July 15, 2024 5 :00am PRISON LAB WORK July 16, 2024 4 :00am PRISON LAB WORK July 22, 2024 5 :00am LABWORK July 29, 2024 5:0 0am PRISON LAB WORK August 05, 2024 5: 00am PRISON LAB WORK August 12, 2024 5 :00am LABWORK August 26, 2024 5:0 0am Chief Complaint Admit Date LABWORK June 03, 2024 5 :00am LABWORK June 07, 2024 5 :00am PRISON LAB WORK June 10 5:00am LABWORK June 17, 2024 5:00am PRISON LAB WORK June 24 5:00am PRISON LAB WORK June 27 2:00am PRISON LAB WORK July 01, 2024 4: 00am LABWORK July 08, 2024 5:0 0am PRISON LAB WORK July 15, 2024 5 :00am PRISON LAB WORK July 16, 2024 4 :00am PRISON LAB WORK July 22, 2024 5 :00am LABWORK July 29, 2024 5:0 0am PRISON LAB WORK August 05, 2024 5: 00am PRISON LAB WORK August 12, 2024 5 :00am PRISON LAB WORK August 19, 2024 4 :00am PRISON LAB WORK August 23, 2024 5 :00am LABWORK August 26, 2024 5:0 0am LABWORK September 09, 2024 5:00a m Chief Complaint Admit Date LABWORK June 07, 2024 5 :00am PRISON LAB WORK June 10 5:00am LABWORK June 17, 2024 5:00am PRISON LAB WORK June 24 5:00am PRISON LAB WORK June 27 2:00am PRISON LAB WORK July 01, 2024 4: 00am LABWORK July 08, 2024 5:0 0am PRISON LAB WORK July 15, 2024 5 :00am PRISON LAB WORK July 16, 2024 4 :00am PRISON LAB WORK July 22, 2024 5 :00am LABWORK July 29, 2024 5:0 0am PRISON LAB WORK August 05, 2024 5: 00am PRISON LAB WORK August 12, 2024 5 :00am PRISON LAB WORK August 19, 2024 4 :00am PRISON LAB WORK August 23, 2024 5 :00am LABWORK August 26, 2024 5:0 0am PRISON LAB WORK September 02, 2024 4:00 am LABWORK September 09, 2024 5:00a m LABWORK September 11, 2024 5:00a m Chief Complaint Admit Date PRISON LAB WORK July 01, 2024 4: 00am LABWORK July 08, 2024 5:0 0am PRISON LAB WORK July 15, 2024 5 :00am PRISON LAB WORK July 16, 2024 4 :00am PRISON LAB WORK July 22, 2024 5 :00am LABWORK July 29, 2024 5:0 0am PRISON LAB WORK August 05, 2024 5: 00am PRISON LAB WORK August 12, 2024 5 :00am PRISON LAB WORK August 19, 2024 4 :00am PRISON LAB WORK August 23, 2024 5 :00am LABWORK August 26, 2024 5:0 0am PRISON LAB WORK September 02, 2024 4:00 am LABWORK September 09, 2024 5:00a m LABWORK September 11, 2024 5:00a m PRISON LAB WORK September 16, 2024 5:0 0am PRISON LAB WORK September 24, 2024 4:0 0am Chief Complaint Admit Date PRISON LAB WORK August 05, 2024 5: 00am PRISON LAB WORK August 12, 2024 5 :00am PRISON LAB WORK August 19, 2024 4 :00am PRISON LAB WORK August 23, 2024 5 :00am LABWORK August 26, 2024 5:0 0am PRISON LAB WORK September 02, 2024 4:00 am LABWORK September 09, 2024 5:00a m LABWORK September 11, 2024 5:00a m PRISON LAB WORK September 16, 2024 5:0 0am PRISON LAB WORK September 24, 2024 4:0 0am LABWORK September 30, 2024 5:00a m LABWORK October 07, 2024 5:00a m PRISON LAB WORK October 14, 2024 4: 00am PRISON LAB WORK October 21, 2024 4: 00am LABWORK October 28, 2024 5:00 am PRISON LAB WORK November 04, 2024 4:0 0am PRISON LAB WORK November 11, 2024 5: 00am [...] SHS DATE CREATED AUTHOR AUTHOR'S ORGANIZ ATION 12/25/2024 [facility] [place] [facility] Source Comments (unrecognize d section and content) In the event this informatio n is protected by the Federal Confidentiality of Alcohol and Drug Abuse Patient Records regulations: The Federal rules restrict any use of the information to criminally investigate or prosecute any alcohol or drug abuse patient.[facility] Reason for Visit (unrecogniz ed [...] Jovana Armstrong, KUSHAL)1935 (Stopped - Provider: Nancy Solorio RN)2149 (New [...] P&T / Antibiotic Stewardship guidelines). << 1400 (Due)220 (Due) cloZAPine (CLOZARIL) tablet 50 mg (CANCELED) 50 mg, Per G Tube, 2 TIMES DAILY, First dose (after last modification) on Mon03/21/21 at 2100, Avoid changes in caffeine intake. 0754 (Given - Provider: Tra Pearl RN)220 (Given - Provider: Nancy Solorio RN) 0914 [...] RN) 0921 (Given - Provider: Jovana Armstrong, RN)2149 (Given - Provider: Nancy Solorio, RN) 0914 (Given - Provider: Sandeep Thompson, RN)2100 (Due) enoxaparin (LOVENOX) injection 30 mg 30 mg, SubCUTAneous, 2 TIMES DAILY, First dose on Mon03/19/21 at 2323, Pharmacy to dose if renal insufficiency present. 0753 (Given - Provider: Tra Pearl, KUSHAL)2207 (Given - Provider: Nancy Solorio, RN) 0940 (Given - Provider: Jovana Armstrong, KUSHAL)2149 (Given - Provider: Nancy Solorio, KUSHAL) 0914 (Given - Provider: Sandeep Thompson, RN)2100 [...] Amelie Taylor RCP)2212 (Given - Provider: Claire Laogs RCP) 0841 (Given - Provider: Ana Cabrera RCP)1213 (Given - Provider: Ana Cabrera RCP)1622 (Given - Provider: Ana Cabrera RCP)2037 (Given - Provider: Perla Loyola GYROSCOPE TECHNICIAN) 1020 (Given - Provider: Gabriel Soares GYROSCOPE TECHNICIAN)1200 (Due)1600 (Due)2000 (Due) lansoprazole (PREVACID SOLUTAB) disintegrating [...] at 1445 0137 (Given - Provider: Francesca Cortez, KUSHAL)1458 (Given - Provider: Tra Pearl RN) 0405 [...] Provider: Amelie Taylor RCP)2215 (Given - Provider: Claier Lagos RCP) 0841 (Given - Provider: Ana [...] Status Dates Renard Burgos Attending Provider Active Sort Line Worker Relationship Specialty Start Date End Date Renard Burgos [address] [place] [phone] PCP - General Internal Medicine 10/16/23 Sort Line Worker Relationship Specialty Start Date End Date Renard Burgos [address] [place] [phone] PCP - General Internal Medicine 10/16/23 Sort Line Worker Relationship Specialty Start Date End Date Renard Burgos [address] [place] [phone] PCP - General Internal Medicine 10/16/23 Sort Line Worker Relationship Specialty Start Date End Date Renard Burgos [address] [place] [phone] PCP - General Internal Medicine 10/16/23 Team [...] Provider Active Sta rt: September 09, 2024 Sort Line Worker Relationship Specialty Start Date End Date Renard Burgos [facility] [address] [phone] PCP - General Internal Medicine 10/16/23 Team [...] Status: Active Member Role/Relationship Status Dates Renard Loretta GILL Attending Provider Active Sta rt: November 11, 2024 Team Status: Active Member Role/Relationship Status Dates Renard Burgos GILL Attending Provider Active Sta rt: November 18, 2024 Team Status: Active Member Role/Relationship Status Dates Renard Loretta GILL Attending Provider Active Sta rt: November 25, 2024 Team Status: Inactive Member Role/Relationship Status Dates Renard GARLAND Attending Provider Active Sta rt: September 24, 2024 End: September 24, 2024 Renard Burgos GILL Referring Provider Active Sta rt: September 24, [...] BE BASED ON THE PRIMARY CLINICAL RECORDS. [facility] [employer] provides no warranty or guarantee of the accuracy or completeness of information in this document.
[2024-12-31 09:22] LABS: Hematocrit 41.3 % (40-54); Hemoglobin 13.4 g/dL (13.0-16.5); Immature Granulocytes Count 0.030 X10^3/uL (0.0-0.0); Mean Corp Hgb Conc 32.4 g/dL (32-36); Mean Corpuscular Volume 92.4 fL (80-94); Mean Platelet Vol. 10.9 fl (6.2-12.0); NRBC Flagged by Analyzer 0 % (0-5); Platelet Count 209 K/mm3 (150-450); RBC Distribution Width CV 13.1 % (11.6-14.6); RBC Distribution Width SD 43.8 fl (35.1-43.9); Red Blood Count 4.47 M/mm3 (4.6-6.2); White Blood Count 8.0 K/mm3 (4.4-11.0)
== END | disposition home or self-care (01) ==
LOC: OLS.SANC 05:00
PROVIDERS: Visit Provider Internal Medicine
DX: N40.0 Benign prostatic hyperplasia without lower urinary tract symptoms (principal); F20.9 Schizophrenia, unspecified; Z79.899 Other long term (current) drug therapy
CPT/HCPCS: 36415; 85025

== ENCOUNTER → 2025-01-06 | Outpatient (REF) | payer MEDICAID, SELFPAY ==
[2025-01-06 09:39] LABS: Hematocrit 43.3 % (40-54); Hemoglobin 14.2 g/dL (13.0-16.5); Immature Granulocytes Count 0.030 X10^3/uL (0.0-0.0); Mean Corp Hgb Conc 32.8 g/dL (32-36); Mean Corpuscular Volume 92.7 fL (80-94); Mean Platelet Vol. 11.5 fl (6.2-12.0); NRBC Flagged by Analyzer 0 % (0-5); POSITIVE COUNT YES; Platelet Count 197 K/mm3 (150-450); RBC Distribution Width CV 13.2 % (11.6-14.6); RBC Distribution Width SD 44.2 fl (35.1-43.9); Red Blood Count 4.67 M/mm3 (4.6-6.2); White Blood Count 8.8 K/mm3 (4.4-11.0)
[2025-01-06 10:18] LABS: Differential Indicated SCAN CRITERIA MET
== END | disposition home or self-care (01) ==
LOC: OLS.SANC 04:00
PROVIDERS: Referring Provider Internal Medicine; Visit Provider Internal Medicine
DX: Z79.899 Other long term (current) drug therapy (principal)
CPT/HCPCS: 36415; 85025

== ENCOUNTER → 2025-01-10 | Outpatient (REF) | payer MEDICAID, SELFPAY ==
--- OUTSIDE RECORDS SUMMARY | 2025-01-10 04:18 | XMS RPT_ITS | CCD ---
Author Organization [facility] Care Team Providers Care Bacteriologist Soil Name Role Phone JORDAN OREILLY Attending Unavailable PROVIDER, UNKNOWN Referring Unavailable Nathanael Cazares Primary Care Unavailable PROVIDER, UNKNOWN Referring Unavailable Nathanael Cazares Primary Care Unavailable Jaime Lindquist Attending Unavailable Unavailable Primary Care Provider UnavailBethany Navarrete Primary Care Provider [phone] Jarvis Kendall MD Unavailable [phone] Bethany Russell MD Primary Care Provider Unavailable [...] Renard Attending Unavailable Renard Jackson Referring Unavailable Renard Jackson Referring Unavailable Loretta GARLAND, [...] tablet via peg tube as needed ACETAMINOPHEN [id number] Ana Stevenson [facility] albuterol 0.83 mg/ml inhalation solution (1 source) beta2-Adrenergic Agonist Start: 03-19-2021 albut veronica (PROVENTIL) nebulizer solution 2.5 mg albuterol 0.833 mg/ml / ipratropium bromide 0.167 mg/ml inhalation solution (18 sources) Anticholinergic, beta2-Adrenergic Agonist Start: 03-20-2021 ipratropium-alb utero l (DUONEB) nebulizer solution 1 ampule Start: 05-22-2019 IPRATROPIUM-AL BUTEROL 0.5-2.5 (3) MG/3ML SOLN 3ml via nebulizer every 4 hours as needed IPRATROPIUM-ALBUTEROL [id number] Ana Stevenson [employer] Start: 08-22-2018 take 3 mL by inhalat ion every four hours ipratropium-albuterol (DUONEB) 0.5-2.5 (3) MG/3ML SOLN nebulizer solution Inhale 3 mLs into the lungs every 4 hours 360 mL 0 08/22/2018 Active aspirin 81 mg chewable tablet (9 sources) Platelet Aggregation Inhibitor, Nonsteroidal Anti-inflammatory Drug Start: 05-22-2019 ASPIRIN ADULT LOW STRENGTH 81 MG CHEW one tablet via peg tube daily ASPIRIN [id number] Ana Stevenson [employer] Start: 08-23-2018 aspirin 81 MG chewable tablet 1 tablet by Per NG tube route daily 30 tablet 3 08/23/2018 Active atorvastatin 40 mg oral tablet (9 sources) HMG-CoA Reductase Inhibitor Start: 05-22-2019 ATORVASTATIN CALCIUM 40 MG TABS one tablet via peg tube daily ATORVASTATIN CALCIUM [id number] [facility] Start: 08-22-2018 atorvastatin ( LIPITOR) 40 MG tablet 1 tablet by Per NG tube route nightly 30 tablet 3 08/22/2018 Active castor oil 0.788 mg/mg / burkinan balsam 0.087 mg/mg topical ointment (7 sources) Standardized Chemical Allergen Start: 08-22-2018 Balsam [place] O il (VENELEX) OINT ointment Apply topically [...] 250mg via peg tube twice daily CLOZAPINE [id number] [facility] Start: 08-22-2018 cloZAPine (AILYN ZARIL) [...] via peg tube twice daily DOCUSATE SODIUM [id number] Ana Stevenson [facility] Start: 08-22-2018 docusate (COLA CE) 50 MG/5ML liquid 10 mLs by Per NG tube route 2 times daily 0 08/22/2018 Active take 1 capsule by mo [facility] twice daily docusate sodium (Colace) 100 [...] one tablet via peg tube nightly MELATONIN [id number] Ana Stevenson [facility] Start: 08-22-2018 melatonin 3 MG TABS tablet [...] needed. 0 08/23/2018 Active polyethylene glycol 3350 77581 mg powder for oral solution (1 source) [...] Sig (Normalized) Sig (Original) barium sulfate (Varibar [place], Varibar Honey) 40 % suspension 5 mL [...] SUPP every 24 hours as needed BISACODYL [id number] Ana Sheltonch [employer]ER SU[employer] MANAGER Start: 05-22-2019 BISACODYL EC 5 MG TBEC one tablet via peg tube daily as needed BISACODYL [id number] Ana Diesch [employer]ER SU[employer] MANAGER chlorhexidine gluconate 1.2 mg/ml mouthwash (10 sources) Start: 05-22-2019 PERIDEX 0.12 % SOLN 15ml twice daily CHLORHEXIDINE GLUCONATE [id number] Ana Sheltonch [employer]USTOMER SUPPORT MANAGER chlorhexidine (P eridex) 0.12 % solution Use 15 mL in the mouth or throat if needed for wound care. Active cholecalciferol 1000 unt oral tablet (16 sources) Vitamin D Start: 05-22-2019 VITAMIN D3 25 MCG (1000 UT) TABS one tablet via peg tube daily CHOLECALCIFEROL [id number] Ana Stevenson LPN cholecalciferol (SM Vitamin D3) 25 MCG (1000 UT) tablet Take 1,000 Units by mouth daily. Active dextromethorphan hydrobromide 2 mg/ml / guaiFENesin 20 mg/ml oral solution (1 source) Uncompetitive L-nsbxqv-Z-aspartate Receptor Antagonist, Sigma-1 Agonist Start: 05-22-2019 ROBITUSSIN PEAK COLD DM SYRP 5ml via peg tube every 4 hours as needed for cough DEXTROMETHORPHAN-GUAIFENESIN SYRP [id number] Ana Stevenson LPN magnesium hydroxide 240 mg/ml oral suspension (1 source) Start: 05-22-2019 MILK OF MAGNESIA CONCENTRATE SUSP 30ml via peg tube every 24 hours MAGNESIUM HYDROXIDE SUSP [id number] Ana Stevenson LPN methylPREDNISolone 40 mg injection (2 sources) Corticosteroid Start: 03-20-2021 End: 03-24-2021 methylPREDNISolone sodium (SOLU-MEDROL) injection 40 mg MULTIPLE VITAMINS-MINERALS (1 source) Start: 05-22-2019 MENS MULTIVITAMIN TABS one tablet via peg tube daily MULTIPLE VITAMINS-MINERALS [id number] Ana Stevenson LPN POLYETHYLENE GLYCOL 1450 (1 source) Start: 05-22-2019 POLYETHYLENE GLYCOL 1450 POW D 17 grams via peg tube twice daily POLYETHYLENE GLYCOL 1450 [id number] Ana Stevenson LPN SENNOSIDES-DOCUSATE SODIUM (1 source) Start: 05-22-2019 SENNA PLUS 8.6-50 MG TABS on e tablet via peg tube daily SENNOSIDES-DOCUSATE SODIUM [id number] Ana Stevenson LPN 50 ml sodium chloride [...] 9 08-15-2018 Chronic Deficiency and other anemia (3 sources) Anemia, unspecified; Translations: [Anemia, unspecified] Onset: 9 Episodic Diabetes mellitus without complication (2 sources) Hyperglycemia, unspecified; Translations: [Hyperglycemia, unspecified] Onset: 9 Episodic Disorders of lipid metabolism (1 source) Hyperlipidemia, unspecified; Translations: [Hyperlipidemia, unspecified] Onset: 4 [...] 9 07-11-2018 Other aftercare (2 sources) terminal gauger (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; Translations: [MCFP (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] Onset: 9 Episodic Other aftercare (2 sources) Other terminal gauger (current) drug therapy; Translations: [Other residential (current) [...] 9 Episodic Respiratory failure; insufficiency; arrest (adult) (5 sources) Chronic respiratory failure, unspecified whether with [...] 07-23-2018 Episodic Other aftercare (1 source) terminal gauger (current) use of antibiotics; Translations: [terminal gauger (current) use of antibiotics] Onset: 5 Episodic Other aftercare (1 source) MCFP (current) use of 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; Translations: [MCFP (current) use of 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] Onset: 5 Episodic [...] Interpretation Reference Range Facility CBC W/Diff, Automatedon 09-0 PLT EST ADEQUATE Normal ADEQ [facility] Comment on above: Order Comment: 109.1 Performed By: #### L 100.0100 ####[facility] [address] [place], [place], [phone] CBC W/Diff, Automatedon 09-0 Absolute Lymph 1.87 X10 3/uL Normal 0.83-4.51 [facility] Comment on above: Order Comment: 109.1 Performed By: #### L 100.0100 ####[facility] [address] [place], [place], [id number](174 Absolute Neut 5.3 X10 3/uL Normal 2.0-7.7 [facility] Comment on above: Order Comment: 109.1 Performed By: #### L 100.0100 ####[facility] [address] [place], [address] Basophils/100 WBC (Bld) 0.4 % Normal 0-1 [facility] Comment on above: Order Comment: 109.1 Performed By: #### L 100.0100 ####[facility] [address] [place], [address] Eosinophils/100 WBC (Bld) 0.6 % Normal 0-5 [facility] Comment on above: Order Comment: 109.1 Performed By: #### L 100.0100 ####[facility] [address] [place], [address] Erythrocyte distribution width (RBC) [Ratio] 13.1 % Normal 11.6-14.6 [facility] Comment on above: Order Comment: 109.1 Performed By: #### L 100.0100 ####[facility] [address] [place], [address] Hematocrit (Bld) [Volume fraction] 41.3 % Normal 40-54 [facility] Comment on above: Order Comment: 109.1 Performed By: #### L 100.0100 ####[facility] [address] [place], [address] Hemoglobin (Bld) [Mass/Vol] 13.4 g/dL Normal 13.0-16.5 [facility] Comment on above: Order Comment: 109.1 Performed By: #### L 100.0100 ####[facility] [address] [place], [address] IG% 0.400 Normal 0.0-0.9 [facility] Comment on above: Order Comment: 109.1 Result Comment: IG% - Immature Granulocytes (promyelocytes, myelocytes andmetamyelocytes) > 1% indicates that a LEFT SHIFT is Present. Performed By: #### L 100.0100 ####[facility] [address] [place], [address] Lymphocytes/100 WBC (Bld) 23.4 % Normal 19-41 [facility] Comment on above: Order Comment: 109.1 Performed By: #### L 100.0100 ####[facility] [address] [place], [address] MCH (RBC) [Entitic mass] 30.0 pg Normal 27.0-32.0 [facility] Comment on above: Order Comment: 109.1 Performed By: #### L 100.0100 ####[facility] [address] [place], [address] MCHC (RBC) [Mass/Vol] 32.4 g/dL Normal 32-36 [facility] Comment on above: Order Comment: 109.1 Performed By: #### L 100.0100 ####[facility] [address] [place], [address] MCV (RBC) [Entitic vol] 92.4 fL Normal 80-94 W [facility] Comment on above: Order Comment: 109.1 Performed By: #### L 100.0100 ####[facility] [address] [place], [address] Monocytes/100 WBC (Bld) 9.0 % Normal 0-10 W [facility] Comment on above: Order Comment: 109.1 Performed By: #### L 100.0100 ####[facility] [address] [place], [address] Neutrophils/100 WBC (Bld) 66.2 % Normal 47-70 [facility] Comment on above: Order Comment: 109.1 Performed By: #### L 100.0100 ####[facility] [address] [place], [address] Nucleated RBC (Bld) [#/Vol] 0 10*3/uL Normal 0-5 [facility] Comment on above: Order Comment: 109.1 Performed By: #### L 100.0100 ####[facility] [address] [place], [address] Platelet mean volume (Bld) [Entitic vol] 10.9 fL Normal 6.2-12.0 [facility] Comment on above: Order Comment: 109.1 Performed By: #### L 100.0100 ####[facility] [address] [place], [address] Platelets (Bld) [#/Vol] 209 10*3/uL Normal 150-450 [facility] Comment on above: Order Comment: 109.1 Performed By: #### L 100.0100 ####[facility] [address] [place], [address] RBC (Bld) [#/Vol] 4.47 10*6/uL Low 4.6-6.2 [facility] Comment on above: Order Comment: 109.1 Performed By: #### L 100.0100 ####[facility] [address] [place], [address] RDW SD 43.8 fl Normal 35.1-43.9 [facility] Comment on above: Order Comment: 109.1 Performed By: #### L 100.0100 ####[facility] [address] [place], [address] WBC (Bld) [#/Vol] 8.0 10*3/uL Normal 4.4-11.0 [facility] Comment on above: Order Comment: 109.1 Performed By: #### L 100.0100 ####[facility] [address] [place], [address] CBC W/Diff, Automatedon 08-2 Absolute Lymph 1.98 X10 3/uL Normal 0.83-4.51 [facility] Comment on above: Order Comment: 109-1 Performed By: #### L 100.0100 ####[facility] [address] [place], [address] Absolute Neut 4.2 X10 3/uL Normal 2.0-7.7 [facility] Comment on above: Order Comment: 109-1 Performed By: #### L 100.0100 ####[facility] [address] [place], [address] Basophils/100 WBC (Bld) 0.6 % Normal 0-1 W [facility] Comment on above: Order Comment: 109-1 Performed By: #### L 100.0100 ####[facility] [address] [place], [address] Eosinophils/100 WBC (Bld) 0.9 % Normal 0-5 [facility] Comment on above: Order Comment: 109-1 Performed By: #### L 100.0100 ####[facility] [address] [place], [address] Erythrocyte distribution width (RBC) [Ratio] 13.0 % Normal 11.6-14.6 [facility] Comment on above: Order Comment: 109-1 Performed By: #### L 100.0100 ####[facility] [address] [place], [address] Hematocrit (Bld) [Volume fraction] 39.9 % Low 40-54 [facility] Comment on above: Order Comment: 109-1 Performed By: #### L 100.0100 ####[facility] [address] [place], [address] Hemoglobin (Bld) [Mass/Vol] 13.4 g/dL Normal 13.0-16.5 [facility] Comment on above: Order Comment: 109-1 Performed By: #### L 100.0100 ####[facility] [address] [place], [address] IG% 0.300 Normal 0.0-0.9 [facility] Comment on above: Order Comment: 109-1 Result Comment: IG% - Immature Granulocytes (promyelocytes, myelocytes andmetamyelocytes) > 1% indicates that a LEFT SHIFT is Present. Performed By: #### L 100.0100 ####[facility] [address] [place], [address] Lymphocytes/100 WBC (Bld) 28.9 % Normal 19-41 [facility] Comment on above: Order Comment: 109-1 Performed By: #### L 100.0100 ####[facility] [address] [place], [address] MCH (RBC) [Entitic mass] 30.9 pg Normal 27.0-32.0 [facility] Comment on above: Order Comment: 109-1 Performed By: #### L 100.0100 ####[facility] [address] [place], [address] MCHC (RBC) [Mass/Vol] 33.6 g/dL Normal 32-36 [facility] Comment on above: Order Comment: 109-1 Performed By: #### L 100.0100 ####[facility] [address] [place], [address] MCV (RBC) [Entitic vol] 91.9 fL Normal 80-94 W [facility] Comment on above: Order Comment: 109-1 Performed By: #### L 100.0100 ####[facility] [address] [place], [address] Monocytes/100 WBC (Bld) 8.0 % Normal 0-10 W [facility] Comment on above: Order Comment: 109-1 Performed By: #### L 100.0100 ####[facility] [address] [place], [address] Neutrophils/100 WBC (Bld) 61.3 % Normal 47-70 [facility] Comment on above: Order Comment: 109-1 Performed By: #### L 100.0100 ####[facility] [address] [place], [address] Nucleated RBC (Bld) [#/Vol] 0 10*3/uL Normal 0-5 [facility] Comment on above: Order Comment: 109-1 Performed By: #### L 100.0100 ####[facility] [address] [place], [address] Platelet mean volume (Bld) [Entitic vol] 11.7 fL Normal 6.2-12.0 [facility] Comment on above: Order Comment: 109-1 Performed By: #### L 100.0100 ####[facility] [address] [place], [address] Platelets (Bld) [#/Vol] 201 10*3/uL Normal 150-450 [facility] Comment on above: Order Comment: 109-1 Performed By: #### L 100.0100 ####[facility] [address] [place], [address] RBC (Bld) [#/Vol] 4.34 10*6/uL Low 4.6-6.2 [facility] Comment on above: Order Comment: 109-1 Performed By: #### L 100.0100 ####[facility] [address] [place], [address] RDW SD 43.4 fl Normal 35.1-43.9 [facility] Comment on above: Order Comment: 109-1 Performed By: #### L 100.0100 ####[facility] [address] [place], [address] WBC (Bld) [#/Vol] 6.8 10*3/uL Normal 4.4-11.0 [facility] Comment on above: Order Comment: 109-1 Performed By: #### L 100.0100 ####[facility] [address] [place], [address] CBC W/Diff, Automatedon 11-29 Absolute Lymph 2.15 X10 3/uL Normal 0.83-4.51 [facility] Comment on above: Order Comment: 109.1 Performed By: #### L 100.0100 ####[facility] [address] [place], [address] Absolute Neut 4.1 X10 3/uL Normal 2.0-7.7 [facility] Comment on above: Order Comment: 109.1 Performed By: #### L 100.0100 ####[facility] [address] [place], [address] Basophils/100 WBC (Bld) 0.7 % Normal 0-1 W [facility] Comment on above: Order Comment: 109.1 Performed By: #### L 100.0100 ####[facility] [address] [place], [address] Eosinophils/100 WBC (Bld) 0.9 % Normal 0-5 [facility] Comment on above: Order Comment: 109.1 Performed By: #### L 100.0100 ####[facility] [address] [place], [address] Erythrocyte distribution width (RBC) [Ratio] 13.2 % Normal 11.6-14.6 [facility] Comment on above: Order Comment: 109.1 Performed By: #### L 100.0100 ####[facility] [address] [place], [address] Hematocrit (Bld) [Volume fraction] 38.7 % Low 40-54 [facility] Comment on above: Order Comment: 109.1 Performed By: #### L 100.0100 ####[facility] [address] [place], [address] Hemoglobin (Bld) [Mass/Vol] 12.8 g/dL Low 13.0-16.5 [facility] Comment on above: Order Comment: 109.1 Performed By: #### L 100.0100 ####[facility] [address] [place], [address] IG% 0.300 Normal 0.0-0.9 [facility] Comment on above: Order Comment: 109.1 Result Comment: IG% - Immature Granulocytes (promyelocytes, myelocytes andmetamyelocytes) > 1% indicates that a LEFT SHIFT is Present. Performed By: #### L 100.0100 ####[facility] [address] [place], [address] Lymphocytes/100 WBC (Bld) 30.7 % Normal 19-41 [facility] Comment on above: Order Comment: 109.1 Performed By: #### L 100.0100 ####[facility] [address] [place], [address] MCH (RBC) [Entitic mass] 30.3 pg Normal 27.0-32.0 [facility] Comment on above: Order Comment: 109.1 Performed By: #### L 100.0100 ####[facility] [address] [place], [address] MCHC (RBC) [Mass/Vol] 33.1 g/dL Normal 32-36 [facility] Comment on above: Order Comment: 109.1 Performed By: #### L 100.0100 ####[facility] [address] [place], [address] MCV (RBC) [Entitic vol] 91.7 fL Normal 80-94 [facility] Comment on above: Order Comment: 109.1 Performed By: #### L 100.0100 ####[facility] [address] [place], [address] Monocytes/100 WBC (Bld) 8.6 % Normal 0-10 W [facility] Comment on above: Order Comment: 109.1 Performed By: #### L 100.0100 ####[facility] [address] [place], [address] Neutrophils/100 WBC (Bld) 58.8 % Normal 47-70 [facility] Comment on above: Order Comment: 109.1 Performed By: #### L 100.0100 ####[facility] [address] [place], [address] Nucleated RBC (Bld) [#/Vol] 0 10*3/uL Normal 0-5 [facility] Comment on above: Order Comment: 109.1 Performed By: #### L 100.0100 ####[facility] [address] [place], [address] Platelet mean volume (Bld) [Entitic vol] 11.3 fL Normal 6.2-12.0 [facility] Comment on above: Order Comment: 109.1 Performed By: #### L 100.0100 ####[facility] [address] [place], [address] Platelets (Bld) [#/Vol] 202 10*3/uL Normal 150-450 [facility] Comment on above: Order Comment: 109.1 Performed By: #### L 100.0100 ####[facility] [address] [place], [address] RBC (Bld) [#/Vol] 4.22 10*6/uL Low 4.6-6.2 [facility] Comment on above: Order Comment: 109.1 Performed By: #### L 100.0100 ####[facility] [address] [place], [address] RDW SD 44.4 fl High 35.1-43.9 [facility] Comment on above: Order Comment: 109.1 Performed By: #### L 100.0100 ####[facility] [address] [place], [address] WBC (Bld) [#/Vol] 7.0 10*3/uL Normal 4.4-11.0 [facility] Comment on above: Order Comment: 109.1 Performed By: #### L 100.0100 ####[facility] [address] [place], [address] CBC W/Diff, Automatedon 11-29 Absolute Lymph 2.30 X10 3/uL Normal 0.83-4.51 [facility] Comment on above: Order Comment: 109.1 Performed By: #### L 100.0100 ####[facility] [address] [place], [address] Absolute Neut 4.8 X10 3/uL Normal 2.0-7.7 [facility] Comment on above: Order Comment: 109.1 Performed By: #### L 100.0100 ####[facility] [address] [place], [address] Basophils/100 WBC (Bld) 0.5 % Normal 0-1 W [facility] Comment on above: Order Comment: 109.1 Performed By: #### L 100.0100 ####[facility] [address] [place], [address] Eosinophils/100 WBC (Bld) 1.0 % Normal 0-5 [facility] Comment on above: Order Comment: 109.1 Performed By: #### L 100.0100 ####[facility] [address] [place], [address] Erythrocyte distribution width (RBC) [Ratio] 13.0 % Normal 11.6-14.6 [facility] Comment on above: Order Comment: 109.1 Performed By: #### L 100.0100 ####[facility] [address] [place], [address] Hematocrit (Bld) [Volume fraction] 40.3 % Normal 40-54 [facility] Comment on above: Order Comment: 109.1 Performed By: #### L 100.0100 ####[facility] [address] [place], [address] Hemoglobin (Bld) [Mass/Vol] 12.8 g/dL Low 13.0-16.5 [facility] Comment on above: Order Comment: 109.1 Performed By: #### L 100.0100 ####[facility] [address] [place], [address] IG% 0.400 Normal 0.0-0.9 [facility] Comment on above: Order Comment: 109.1 Result Comment: IG% - Immature Granulocytes (promyelocytes, myelocytes andmetamyelocytes) > 1% indicates that a LEFT SHIFT is Present. Performed By: #### L 100.0100 ####[facility] [address], [address] Lymphocytes/100 WBC (Bld) 29.2 % Normal 19-41 [facility] Comment on above: Order Comment: 109.1 Performed By: #### L 100.0100 ####[facility] [address] [place], [address] MCH (RBC) [Entitic mass] 29.6 pg Normal 27.0-32.0 [facility] Comment on above: Order Comment: 109.1 Performed By: #### L 100.0100 ####[facility] [address] [place], [address] MCHC (RBC) [Mass/Vol] 31.8 g/dL Low 32-36 [facility] Comment on above: Order Comment: 109.1 Performed By: #### L 100.0100 ####[facility] [address] [place], [address] MCV (RBC) [Entitic vol] 93.1 fL Normal 80-94 [facility] Comment on above: Order Comment: 109.1 Performed By: #### L 100.0100 ####[facility] [address] [place], [address] Monocytes/100 WBC (Bld) 7.7 % Normal 0-10 [facility] Comment on above: Order Comment: 109.1 Performed By: #### L 100.0100 ####[facility] [address] [place], [address] Neutrophils/100 WBC (Bld) 61.2 % Normal 47-70 [facility] Comment on above: Order Comment: 109.1 Performed By: #### L 100.0100 ####[facility] [address] [place], [address] Nucleated RBC (Bld) [#/Vol] 0 10*3/uL Normal 0-5 [facility] Comment on above: Order Comment: 109.1 Performed By: #### L 100.0100 ####[facility] [address] [place], [address] Platelet mean volume (Bld) [Entitic vol] 11.5 fL Normal 6.2-12.0 [facility] Comment on above: Order Comment: 109.1 Performed By: #### L 100.0100 ####[facility] [address] [place], [address] Platelets (Bld) [#/Vol] 194 10*3/uL Normal 150-450 [facility] Comment on above: Order Comment: 109.1 Performed By: #### L 100.0100 ####[facility] [address] [place], [address] RBC (Bld) [#/Vol] 4.33 10*6/uL Low 4.6-6.2 [facility] Comment on above: Order Comment: 109.1 Performed By: #### L 100.0100 ####[facility] [address] [place], [address] RDW SD 44.3 fl High 35.1-43.9 [facility] Comment on above: Order Comment: 109.1 Performed By: #### L 100.0100 ####[facility] [address] [place], [address] WBC (Bld) [#/Vol] 7.9 10*3/uL Normal 4.4-11.0 [facility] Comment on above: Order Comment: 109.1 Performed By: #### L 100.0100 ####[facility] [address] [place], [address] CBC W/Diff, Automatedon 08-0 4-2024 Absolute Lymph 2.83 X10 3/uL Normal 0.83-4.51 [facility] Comment on above: Order Comment: 109.1 Performed By: #### L 100.0100 ####[facility] [address] [place], [address] Absolute Neut 4.7 X10 3/uL Normal 2.0-7.7 [facility] Comment on above: Order Comment: 109.1 Performed By: #### L 100.0100 ####[facility] [address] [place], [address] Basophils/100 WBC (Bld) 0.8 % Normal 0-1 [facility] Comment on above: Order Comment: 109.1 Performed By: #### L 100.0100 ####[facility] [address] [place], [address] Eosinophils/100 WBC (Bld) 0.9 % Normal 0-5 [facility] Comment on above: Order Comment: 109.1 Performed By: #### L 100.0100 ####[facility] [address] [place], [address] Erythrocyte distribution width (RBC) [Ratio] 13.2 % Normal 11.6-14.6 [facility] Comment on above: Order Comment: 109.1 Performed By: #### L 100.0100 ####[facility] [address] [place], [address] Hematocrit (Bld) [Volume fraction] 41.4 % Normal 40-54 [facility] Comment on above: Order Comment: 109.1 Performed By: #### L 100.0100 ####[facility] [address] [place], [address] Hemoglobin (Bld) [Mass/Vol] 13.2 g/dL Normal 13.0-16.5 [facility] Comment on above: Order Comment: 109.1 Performed By: #### L 100.0100 ####[facility] [address] [place], [address] IG% 0.300 Normal 0.0-0.9 [facility] Comment on above: Order Comment: 109.1 Result Comment: IG% - Immature Granulocytes (promyelocytes, myelocytes andmetamyelocytes) > 1% indicates that a LEFT SHIFT is Present. Performed By: #### L 100.0100 ####[facility] [address] [place], [address] Lymphocytes/100 WBC (Bld) 31.3 % Normal 19-41 [facility] Comment on above: Order Comment: 109.1 Performed By: #### L 100.0100 ####[facility] [address] [place], [address] MCH (RBC) [Entitic mass] 30.1 pg Normal 27.0-32.0 [facility] Comment on above: Order Comment: 109.1 Performed By: #### L 100.0100 ####[facility] [address] [place], [address] MCHC (RBC) [Mass/Vol] 31.9 g/dL Low 32-36 [facility] Comment on above: Order Comment: 109.1 Performed By: #### L 100.0100 ####[facility] [address] [place], [address] MCV (RBC) [Entitic vol] 94.5 fL High 80-94 [facility] Comment on above: Order Comment: 109.1 Performed By: #### L 100.0100 ####[facility] [address] [place], [address] Monocytes/100 WBC (Bld) 14.8 % High 0-10 [facility] Comment on above: Order Comment: 109.1 Performed By: #### L 100.0100 ####[facility] [address] [place], [address] Neutrophils/100 WBC (Bld) 51.9 % Normal 47-70 [facility] Comment on above: Order Comment: 109.1 Performed By: #### L 100.0100 ####[facility] [address] [place], [address] Nucleated RBC (Bld) [#/Vol] 0 10*3/uL Normal 0-5 [facility] Comment on above: Order Comment: 109.1 Performed By: #### L 100.0100 ####[facility] [address] [place], [address] Platelet mean volume (Bld) [Entitic vol] 11.2 fL Normal 6.2-12.0 [facility] Comment on above: Order Comment: 109.1 Performed By: #### L 100.0100 ####[facility] [address] [place], [address] Platelets (Bld) [#/Vol] 182 10*3/uL Normal 150-450 [facility] Comment on above: Order Comment: 109.1 Performed By: #### L 100.0100 ####[facility] [address] [place], [address] RBC (Bld) [#/Vol] 4.38 10*6/uL Low 4.6-6.2 [facility] Comment on above: Order Comment: 109.1 Performed By: #### L 100.0100 ####[facility] [address] [place], [place], [phone] RDW SD 45.5 fl High 35.1-43.9 [facility] Comment on above: Order Comment: 109.1 Performed By: #### L 100.0100 ####[facility] [address] [place], [address] WBC (Bld) [#/Vol] 9.1 10*3/uL Normal 4.4-11.0 [facility] Comment on above: Order Comment: 109.1 Performed By: #### L 100.0100 ####[facility] [address] [place], [place], [phone] Absolute lymphocyte countOrd ered By: Renard Burgos on 11-25-2024 Lymphocytes Auto (Unsp spec) [#/Vol] 1.80 10*3/uL 0.83-4.51 [facility] Absolute neutrophil countOrd ered By: Renard Burgos on 11-25-2024 Neutrophils (Bld) [#/Vol] 7.6 10*3/uL 2.0-7.7 [facility] Automated blood erythrocyte countOrdered By: Renard Burgos on 11-25-2024 RBC (Bld) [#/Vol] 4.57 10*6/uL Low 4.6-6.2 [facility] Comment on above: Order Comment: 109-1 Performed By: #### L 100.0100 ####[facility] [address] [place], [phone] Automated blood hematocrit ( percentage)Ordered By: Renard Burgos on 11-25-2024 Hematocrit (Bld) [Volume fraction] 42.1 % Normal 40-54 [facility] Comment on above: Order Comment: 109-1 Performed By: #### L 100.0100 ####[facility] [address] [place], [address] Automated lymphocyte count a s percentage of total leukocytesOrdered By: Renard Hensleyrustam on 11-25-2024 Lymphocytes/100 WBC Auto (Unsp spec) 17.3 % Low 19-41 [facility] Basophil percentageOrdered B y: Renard Burgos on 11-25-2024 Basophils/100 WBC (Bld) 0.4 % Normal 0-1 [facility] Comment on above: Order Comment: 109-1 Performed By: #### L 100.0100 ####[facility] [address] [place], [address] CBC W/Diff, Automatedon 10-30 Absolute Lymph 1.80 X10 3/uL Normal 0.83-4.51 [facility] Comment on above: Order Comment: 109-1 Performed By: #### L 100.0100 ####[facility] [address] [place], [address] Absolute Neut 7.6 X10 3/uL Normal 2.0-7.7 [facility] Comment on above: Order Comment: 109-1 Performed By: #### L 100.0100 ####[facility] [address] [place], [address] IG% 0.400 Normal 0.0-0.9 [facility] Comment on above: Order Comment: 109-1 Result Comment: IG% - Immature Granulocytes (promyelocytes, myelocytes andmetamyelocytes) > 1% indicates that a LEFT SHIFT is Present. Performed By: #### L 100.0100 ####[facility] [address] [place], [address] Lymphocytes/100 WBC (Bld) 17.3 % Low 19-41 [facility] Comment on above: Order Comment: 109-1 Performed By: #### L 100.0100 ####[facility] [address] [place], [address] Nucleated RBC (Bld) [#/Vol] 0 10*3/uL Normal 0-5 [facility] Comment on above: Order Comment: 109-1 Performed By: #### L 100.0100 ####[facility] [address] [place], [address] RDW SD 43.7 fl Normal 35.1-43.9 [facility] Comment on above: Order Comment: 109-1 Performed By: #### L 100.0100 ####[facility] [address] [place], [place], [phone] Eosinophil percentageOrdered By: Renard Burgos on 11-25-2024 Eosinophils/100 WBC (Bld) 0.6 % Normal 0-5 [facility] Comment on above: Order Comment: 109-1 Performed By: #### L 100.0100 ####[facility] [address] [place], [address] Erythrocyte distribution wid th ratioOrdered By: Renard Burgos on 11-25-2024 Erythrocyte distribution width (RBC) [Ratio] 12.9 % Normal 11.6-14.6 [facility] Comment on above: Order Comment: 109-1 Performed By: #### L 100.0100 ####[facility] [address] [place], [address] Erythrocyte distribution wid th standard deviationOrdered By: Renard Burgos on 11-25-2024 Erythrocyte distribution width (RBC) [Ratio] 43.7 fl 35.1-43.9 [facility] Hemoglobin measurementOrdere d By: Renard Burgos on 11-25-2024 Hemoglobin (Bld) [Mass/Vol] 13.8 g/dL Normal 13.0-16.5 [facility] Comment on above: Order Comment: 109-1 Performed By: #### L 100.0100 ####[facility] [address] [place], [phone] Immature granulocytes/100 WB C Auto (Bld)Ordered By: Renard Burgos on 11-25-2024 Immature granulocytes/100 WBC (Bld) 0.400 % 0.0-0.9 [facility] Comment on above: IG% - Immature Granu locytes (promyelocytes, myelocytes and metamyelocytes) > 1% indicates that a LEFT SHIFT is Present. MCV (mean corpuscular volume ) determinationOrdered By: Renard Burgos on 11-25-2024 MCV (RBC) [Entitic vol] 92.1 fL Normal 80-94 [facility] Comment on above: Order Comment: 109-1 Performed By: #### L 100.0100 ####[facility] [address] [place], [phone] Mean corpuscular hemoglobin (MCH) determinationOrdered By: Renard Burgos on 11-25-2024 MCH (RBC) [Entitic mass] 30.2 pg Normal 27.0-32.0 [facility] Comment on above: Order Comment: 109-1 Performed By: #### L 100.0100 ####[facility] [address] [place], [address] Mean corpuscular hemoglobin concentration (MCHC) determinationOrdered By: Renard Burgos on 11-25-2024 MCHC (RBC) [Mass/Vol] 32.8 g/dL Normal 32-36 [facility] Comment on above: Order Comment: 109-1 Performed By: #### L 100.0100 ####[facility] [address] [place], [address] Mean platelet volume determi nationOrdered By: Renard Burgos on 11-25-2024 Platelet mean volume (Bld) [Entitic vol] 11.7 fL Normal 6.2-12.0 [facility] Comment on above: Order Comment: 109-1 Performed By: #### L 100.0100 ####[facility] [address] [place], [address] Monocyte percentageOrdered B y: Renard Burgos on 11-25-2024 Monocytes/100 WBC (Bld) 8.6 % Normal 0-10 [facility] Comment on above: Order Comment: 109-1 Performed By: #### L 100.0100 ####[facility] [address] [place], [address] Neutrophil percentageOrdered By: Renard Burgos on 11-25-2024 Neutrophils/100 WBC (Bld) 72.7 % High 47-70 [facility] Comment on above: Order Comment: 109-1 Performed By: #### L 100.0100 ####[facility] [address] [place], [address] Nucleated red blood cell per centageOrdered By: Renard Burgos on 11-25-2024 Nucleated RBC/100 WBC (Bld) [Ratio] 0 % 0-5 [facility] Platelet countOrdered By: Garrick Bhatt on 11-25-2024 Platelets (Bld) [#/Vol] 201 10*3/uL Normal 150-450 [facility] Comment on above: Order Comment: 109-1 Performed By: #### L 100.0100 ####[facility] [address] [place], [address] White blood cell (WBC) count Ordered By: Renard Burgos on 11-25-2024 WBC (Bld) [#/Vol] 10.4 10*3/uL Normal 4.4-11.0 [facility] Comment on above: Order Comment: 109-1 Performed By: #### L 100.0100 ####[facility] [address] [place], [address] Absolute lymphocyte countOrd ered By: Renard Burgos on 11-18-2024 Lymphocytes Auto (Unsp spec) [#/Vol] 2.56 10*3/uL 0.83-4.51 [facility] Absolute neutrophil countOrd ered By: Renard Burgos on 11-18-2024 Neutrophils (Bld) [#/Vol] 6.7 10*3/uL 2.0-7.7 [facility] Automated lymphocyte count a s percentage of total leukocytesOrdered By: Renard Hensleyrustam on 11-18-2024 Lymphocytes/100 WBC Auto (Unsp spec) 24.9 % 19-41 [facility] Basophil percentageOrdered B y: Renard Burgos on 11-18-2024 Basophils/100 WBC (Bld) 0.5 % 0-1 [facility] CBC W/Diff, Automatedon 10-30 Absolute Lymph 2.56 X10 3/uL Normal 0.83-4.51 [facility] Comment on above: Order Comment: 109.1 Performed By: #### L 100.0100 ####[facility] [address] [place], [address] Absolute Neut 6.7 X10 3/uL Normal 2.0-7.7 [facility] Comment on above: Order Comment: 109.1 Performed By: #### L 100.0100 ####[facility] [address] [place], [address] Basophils/100 WBC (Bld) 0.5 % Normal 0-1 [facility] Comment on above: Order Comment: 109.1 Performed By: #### L 100.0100 ####[facility] [address] [place], [address] Eosinophils/100 WBC (Bld) 0.8 % Normal 0-5 [facility] Comment on above: Order Comment: 109.1 Performed By: #### L 100.0100 ####[facility] [address] [place], [address] Erythrocyte distribution width (RBC) [Ratio] 13.2 % Normal 11.6-14.6 [facility] Comment on above: Order Comment: 109.1 Performed By: #### L 100.0100 ####[facility] [address] [place], [address] Hematocrit (Bld) [Volume fraction] 41.6 % Normal 40-54 [facility] Comment on above: Order Comment: 109.1 Performed By: #### L 100.0100 ####[facility] [address], [address] Hemoglobin (Bld) [Mass/Vol] 13.6 g/dL Normal 13.0-16.5 [facility] Comment on above: Order Comment: 109.1 Performed By: #### L 100.0100 ####[facility] [address] [place], [address] IG% 0.400 Normal 0.0-0.9 [facility] Comment on above: Order Comment: 109.1 Result Comment: IG% - Immature Granulocytes (promyelocytes, myelocytes andmetamyelocytes) > 1% indicates that a LEFT SHIFT is Present. Performed By: #### L 100.0100 ####[facility] [address], [address] Lymphocytes/100 WBC (Bld) 24.9 % Normal 19-41 [facility] Comment on above: Order Comment: 109.1 Performed By: #### L 100.0100 ####[facility] [address] [place], [address] MCH (RBC) [Entitic mass] 30.3 pg Normal 27.0-32.0 [facility] Comment on above: Order Comment: 109.1 Performed By: #### L 100.0100 ####[facility] [address] [place], [address] MCHC (RBC) [Mass/Vol] 32.7 g/dL Normal 32-36 [facility] Comment on above: Order Comment: 109.1 Performed By: #### L 100.0100 ####[facility] [address] [place], [address] MCV (RBC) [Entitic vol] 92.7 fL Normal 80-94 [facility] Comment on above: Order Comment: 109.1 Performed By: #### L 100.0100 ####[facility] [address] [place], [address] Monocytes/100 WBC (Bld) 8.9 % Normal 0-10 [facility] Comment on above: Order Comment: 109.1 Performed By: #### L 100.0100 ####[facility] [address] [place], [address] Neutrophils/100 WBC (Bld) 64.5 % Normal 47-70 [facility] Comment on above: Order Comment: 109.1 Performed By: #### L 100.0100 ####[facility] [address] [place], [address] Nucleated RBC (Bld) [#/Vol] 0 10*3/uL Normal 0-5 [facility] Comment on above: Order Comment: 109.1 Performed By: #### L 100.0100 ####[facility] [address] [place], [address] Platelet mean volume (Bld) [Entitic vol] 11.0 fL Normal 6.2-12.0 [facility] Comment on above: Order Comment: 109.1 Performed By: #### L 100.0100 ####[facility] [address] [place], [address] Platelets (Bld) [#/Vol] 177 10*3/uL Normal 150-450 [facility] Comment on above: Order Comment: 109.1 Performed By: #### L 100.0100 ####[facility] [address] [place], [address] RBC (Bld) [#/Vol] 4.49 10*6/uL Low 4.6-6.2 [facility] Comment on above: Order Comment: 109.1 Performed By: #### L 100.0100 ####[facility] [address] [place], [address] RDW SD 44.9 fl High 35.1-43.9 [facility] Comment on above: Order Comment: 109.1 Performed By: #### L 100.0100 ####[facility] [address] [place], [address] WBC (Bld) [#/Vol] 10.3 10*3/uL Normal 4.4-11.0 [facility] Comment on above: Order Comment: 109.1 Performed By: #### L 100.0100 ####[facility] [address] [place], [address] Eosinophil percentageOrdered By: Renard Burgos on 11-18-2024 Eosinophils/100 WBC (Bld) 0.8 % 0-5 [facility] Erythrocyte distribution wid th ratioOrdered By: Renard Burgos on 11-18-2024 Erythrocyte distribution width (RBC) [Ratio] 13.2 % 11.6-14.6 [facility] Erythrocyte distribution wid th standard deviationOrdered By: Renard Burgos on 11-18-2024 Erythrocyte distribution width (RBC) [Ratio] 44.9 fl High 35.1-43.9 [facility] Hematocrit Auto (Bld) [Volum e fraction]Ordered By: Renard Burgos on 11-18-2024 Hematocrit (Bld) [Volume fraction] 41.6 % 40-54 [facility] Hemoglobin measurementOrdere d By: Renard Burgos on 11-18-2024 Hemoglobin (Bld) [Mass/Vol] 13.6 g/dL 13.0-16.5 [facility] Immature granulocytes/100 WB C Auto (Bld)Ordered By: Renard Burgos on 11-18-2024 Immature granulocytes/100 WBC (Bld) 0.400 % 0.0-0.9 [facility] Comment on above: IG% - Immature Granu locytes (promyelocytes, myelocytes and metamyelocytes) > 1% indicates that a LEFT SHIFT is Present. MCV (mean corpuscular volume ) determinationOrdered By: Renard Burgos on 11-18-2024 MCV (RBC) [Entitic vol] 92.7 fL 80-94 [facility] Mean corpuscular hemoglobin (MCH) determinationOrdered By: Renard Burgos on 11-18-2024 MCH (RBC) [Entitic mass] 30.3 pg 27.0-32.0 [facility] Mean corpuscular hemoglobin concentration (MCHC) determinationOrdered By: Renard Burgos on 11-18-2024 MCHC (RBC) [Mass/Vol] 32.7 g/dL 32-36 [facility] Mean platelet volume determi nationOrdered By: Renard Burgos on 11-18-2024 Platelet mean volume (Bld) [Entitic vol] 11.0 fL 6.2-12.0 [facility] Monocyte percentageOrdered B y: Renard Burgos on 11-18-2024 Monocytes/100 WBC (Bld) 8.9 % 0-10 [facility] Neutrophil percentageOrdered By: Renard Burgos on 11-18-2024 Neutrophils/100 WBC (Bld) 64.5 % 47-70 [facility] Nucleated red blood cell per centageOrdered By: Renard Burgos on 11-18-2024 Nucleated RBC/100 WBC (Bld) [Ratio] 0 % 0-5 [facility] Platelet countOrdered By: Garrick Bhatt on 11-18-2024 Platelets (Bld) [#/Vol] 177 10*3/uL 150-450 [facility] RBC Auto (Bld) [#/Vol]Ordere d By: Renard Burgos on 11-18-2024 RBC (Bld) [#/Vol] 4.49 10*6/uL Low 4.6-6.2 [facility] White blood cell (WBC) count Ordered By: Renard Burgos on 11-18-2024 WBC (Bld) [#/Vol] 10.3 10*3/uL 4.4-11.0 [facility] Basic Metabolic Profile (BMP )on 11-12-2024 BUN/CRE 18.8 RATIO Normal 10-20 [facility] Comment on above: Order Comment: ADDED BMP TO 11/11/24 LABS Performed By: #### L 100.0100, L500.2500 ####[facility] [address] [place], [address] Calcium [Mass/Vol] 8.2 mg/dL Normal 7.6-11.0 [facility] Comment on above: Order Comment: ADDED BMP TO 11/11/24 LABS Performed By: #### L 100.0100, L500.2500 ####[facility] [address] [place], [address] Chloride [Moles/Vol] 104 mmol/L Normal 98-108 [facility] Comment on above: Order Comment: ADDED BMP TO 11/11/24 LABS Performed By: #### L 100.0100, L500.2500 ####[facility] [address] [place], [address] CO2 [Moles/Vol] 24.9 mmol/L Normal 21.0-32.0 [facility] Comment on above: Order Comment: ADDED BMP TO 11/11/24 LABS Performed By: #### L 100.0100, L500.2500 ####[facility] [address] [place], [address] Creatinine [Mass/Vol] 0.58 mg/dL Low 0.70-1.20 [facility] Comment on above: Order Comment: ADDED BMP TO 11/11/24 LABS Performed By: #### L 100.0100, L500.2500 ####[facility] [address] [place], [address] GAP 11 Normal 5-15 [facility] Comment on above: Order Comment: ADDED BMP TO 11/11/24 LABS Performed By: #### L 100.0100, L500.2500 ####[facility] [address] [place], [address] GFR/1.73 sq M.predicted among non-blacks MDRD (S/P/Bld) [Vol rate/Area] 107 mL/min/{1.73_m2} Normal >60 [facility] Comment on above: Order Comment: ADDED BMP TO 11/11/24 LABS Result Comment: mL/m in/1.73m2 CKD-EPI Creatinine Equation (2020) Performed By: #### L 100.0100, L500.2500 ####[facility] [address] [place], [address] Glucose [Mass/Vol] 101 mg/dL High 70-99 [facility] Comment on above: Order Comment: ADDED BMP TO 11/11/24 LABS Performed By: #### L 100.0100, L500.2500 ####[facility] [address] [place], [address] Potassium [Moles/Vol] 3.9 mmol/L Normal 3.3-5.1 [facility] Comment on above: Order Comment: ADDED BMP TO 11/11/24 LABS Performed By: #### L 100.0100, L500.2500 ####[facility] [address] [place], [address] Sodium [Moles/Vol] 140 mmol/L Normal 133-145 [facility] Comment on above: Order Comment: ADDED BMP TO 11/11/24 LABS Performed By: #### L 100.0100, L500.2500 ####[facility] [address] [place], [address] Urea nitrogen [Mass/Vol] 11 mg/dL Normal 4-19 [facility] Comment on above: Order Comment: ADDED BMP TO 11/11/24 LABS Performed By: #### L 100.0100, L500.2500 ####[facility] [address] [place], [address] Absolute lymphocyte countOrd ered By: Renard Burgos on 11-11-2024 Lymphocytes Auto (Unsp spec) [#/Vol] 2.08 10*3/uL 0.83-4.51 [facility] Absolute neutrophil countOrd ered By: Renard Burgos on 11-11-2024 Neutrophils (Bld) [#/Vol] 5.2 10*3/uL 2.0-7.7 [facility] Anion gap in Serum or Plasma Ordered By: Renard Burgos on 11-11-2024 Anion gap [Moles/Vol] 11 mmol/L - [facility] Automated lymphocyte count a s percentage of total leukocytesOrdered By: Renard Burgos on 11-11-2024 Lymphocytes/100 WBC Auto (Unsp spec) 25.7 % [facility] BUN/creatinine ratioOrdered By: Renard Burgos on 11-11-2024 Urea nitrogen/Creatinine [Mass ratio] 18.8 mg/mg - [facility] Basophil percentageOrdered B y: Renard Burgos on 11-11-2024 Basophils/100 WBC (Bld) 0.6 % 0-1 [facility] CBC W/Diff, Automatedon 10-29 Absolute Lymph 2.08 X10 3/uL Normal 0.83-4.51 [facility] Comment on above: Order Comment: 109.1 Performed By: #### L 100.0100, L500.2500 ####[facility] [address] [place], [address] Absolute Neut 5.2 X10 3/uL Normal 2.0-7.7 [facility] Comment on above: Order Comment: 109.1 Performed By: #### L 100.0100, L500.2500 ####[facility] [address] [place], [address] Basophils/100 WBC (Bld) 0.6 % Normal 0-1 [facility] Comment on above: Order Comment: 109.1 Performed By: #### L 100.0100, L500.2500 ####[facility] [address] [place], [address] Eosinophils/100 WBC (Bld) 1.0 % Normal 0-5 [facility] Comment on above: Order Comment: 109.1 Performed By: #### L 100.0100, L500.2500 ####[facility] [address] [place], [address] Erythrocyte distribution width (RBC) [Ratio] 13.2 % Normal 11.6-14.6 [facility] Comment on above: Order Comment: 109.1 Performed By: #### L 100.0100, L500.2500 ####[facility] [address] [place], [address] Hematocrit (Bld) [Volume fraction] 38.6 % Low 40-54 [facility] Comment on above: Order Comment: 109.1 Performed By: #### L 100.0100, L500.2500 ####[facility] [address] [place], [address] Hemoglobin (Bld) [Mass/Vol] 12.6 g/dL Low 13.0-16.5 [facility] Comment on above: Order Comment: 109.1 Performed By: #### L 100.0100, L500.2500 ####[facility] [address] [place], [address] IG% 0.400 Normal 0.0-0.9 [facility] Comment on above: Order Comment: 109.1 Result Comment: IG% - Immature Granulocytes (promyelocytes, myelocytes andmetamyelocytes) > 1% indicates that a LEFT SHIFT is Present. Performed By: #### L 100.0100, L500.2500 ####[facility] [address] [place], [address] Lymphocytes/100 WBC (Bld) 25.7 % Normal 19-41 [facility] Comment on above: Order Comment: 109.1 Performed By: #### L 100.0100, L500.2500 ####[facility] [address] [place], [address] MCH (RBC) [Entitic mass] 29.9 pg Normal 27.0-32.0 [facility] Comment on above: Order Comment: 109.1 Performed By: #### L 100.0100, L500.2500 ####[facility] [address] [place], [address] MCHC (RBC) [Mass/Vol] 32.6 g/dL Normal 32-36 [facility] Comment on above: Order Comment: 109.1 Performed By: #### L 100.0100, L500.2500 ####[facility] [address] [place], [address] MCV (RBC) [Entitic vol] 91.7 fL Normal 80-94 [facility] Comment on above: Order Comment: 109.1 Performed By: #### L 100.0100, L500.2500 ####[facility] [address] [place], [address] Monocytes/100 WBC (Bld) 8.3 % Normal 0-10 [facility] Comment on above: Order Comment: 109.1 Performed By: #### L 100.0100, L500.2500 ####[facility] [address] [place], [address] Neutrophils/100 WBC (Bld) 64.0 % Normal 47-70 [facility] Comment on above: Order Comment: 109.1 Performed By: #### L 100.0100, L500.2500 ####[facility] [address] [place], [address] Nucleated RBC (Bld) [#/Vol] 0 10*3/uL Normal 0-5 [facility] Comment on above: Order Comment: 109.1 Performed By: #### L 100.0100, L500.2500 ####[facility] [address] [place], [address] Platelet mean volume (Bld) [Entitic vol] 11.4 fL Normal 6.2-12.0 [facility] Comment on above: Order Comment: 109.1 Performed By: #### L 100.0100, L500.2500 ####[facility] [address] [place], [address] Platelets (Bld) [#/Vol] 220 10*3/uL Normal 150-450 [facility] Comment on above: Order Comment: 109.1 Performed By: #### L 100.0100, L500.2500 ####[facility] [address] [place], [address] RBC (Bld) [#/Vol] 4.21 10*6/uL Low 4.6-6.2 [facility] Comment on above: Order Comment: 109.1 Performed By: #### L 100.0100, L500.2500 ####[facility] [address] [place], [address] RDW SD 44.4 fl High 35.1-43.9 [facility] Comment on above: Order Comment: 109.1 Performed By: #### L 100.0100, L500.2500 ####[facility] [address] [place], [address] WBC (Bld) [#/Vol] 8.1 10*3/uL Normal 4.4-11.0 [facility] Comment on above: Order Comment: 109.1 Performed By: #### L 100.0100, L500.2500 ####[facility] [address] [place], [address] Carbon dioxide, total [Moles /volume] in Central venous bloodOrdered By: Renard Burgos on 11-11-2024 CO2 [Moles/Vol] 24.9 mmol/L 21.0-32.0 [facility] Chloride assayOrdered By: Garrick Bhatt on 11-11-2024 Chloride [Moles/Vol] 104 mmol/L 98-108 [facility] Eosinophil percentageOrdered By: Renard Burgos on 11-11-2024 Eosinophils/100 WBC (Bld) 1.0 % 0-5 [facility] Erythrocyte distribution wid th ratioOrdered By: Renard Burgos on 11-11-2024 Erythrocyte distribution width (RBC) [Ratio] 13.2 % 11.6-14.6 [facility] Erythrocyte distribution wid th standard deviationOrdered By: Renard Burgos on 11-11-2024 Erythrocyte distribution width (RBC) [Ratio] 44.4 fl High 35.1-43.9 [facility] Glomerular filtration rate ( GFR) estimation/1.73 sq m using serum, plasma, or whole bOrdered By: Renard Burgos on 11-11-2024 GFR/1.73 sq M.predicted among non-blacks MDRD (S/P/Bld) [Vol rate/Area] 107 mL/min/{1.73_m2} >60 [facility] Comment on above: mL/min/1.73m2 CKD-EP I Creatinine Equation (2020) Hematocrit Auto (Bld) [Volum e fraction]Ordered By: Renard Burgos on 11-11-2024 Hematocrit (Bld) [Volume fraction] 38.6 % Low 40-54 [facility] Hemoglobin measurementOrdere d By: Renard Burgos on 11-11-2024 Hemoglobin (Bld) [Mass/Vol] 12.6 g/dL Low 13.0-16.5 [facility] Immature granulocytes/100 WB C Auto (Bld)Ordered By: Renard Burgos on 11-11-2024 Immature granulocytes/100 WBC (Bld) 0.400 % 0.0-0.9 [facility] Comment on above: IG% - Immature Granu locytes (promyelocytes, myelocytes and metamyelocytes) > 1% indicates that a LEFT SHIFT is Present. MCV (mean corpuscular volume ) determinationOrdered By: Renard Burgos on 11-11-2024 MCV (RBC) [Entitic vol] 91.7 fL 80-94 [facility] Mean corpuscular hemoglobin (MCH) determinationOrdered By: Reanrd Burgos on 11-11-2024 MCH (RBC) [Entitic mass] 29.9 pg 27.0-32.0 [facility] Mean corpuscular hemoglobin concentration (MCHC) determinationOrdered By: Renard Burgos on 11-11-2024 MCHC (RBC) [Mass/Vol] 32.6 g/dL 32-36 [facility] Mean platelet volume determi nationOrdered By: Renard Burgos on 11-11-2024 Platelet mean volume (Bld) [Entitic vol] 11.4 fL 6.2-12.0 [facility] Monocyte percentageOrdered B y: Renard Burgos on 11-11-2024 Monocytes/100 WBC (Bld) 8.3 % 0-10 [facility] Neutrophil percentageOrdered By: Renard Burgos on 11-11-2024 Neutrophils/100 WBC (Bld) 64.0 % 47-70 [facility] Nucleated red blood cell per centageOrdered By: Renard Burgos on 11-11-2024 Nucleated RBC/100 WBC (Bld) [Ratio] 0 % 0-5 [facility] Platelet countOrdered By: Garrick Bhatt on 11-11-2024 Platelets (Bld) [#/Vol] 220 10*3/uL 150-450 [facility] Potassium measurement (mass/ volume)Ordered By: Renard Burgos on 11-11-2024 Potassium (Unsp spec) [Mass/Vol] 3.9 mmol/L 3.3-5.1 [facility] RBC Auto (Bld) [#/Vol]Ordere d By: Renard Burgos on 11-11-2024 RBC (Bld) [#/Vol] 4.21 10*6/uL Low 4.6-6.2 [facility] Serum creatinine measurement (mass/volume)Ordered By: Renard Burgos on 11-11-2024 Creatinine [Mass/Vol] 0.58 mg/dL Low 0.70-1.20 [facility] Serum glucose measurement (m ass/volume)Ordered By: Renard Burgos on 11-11-2024 Glucose [Mass/Vol] 101 mg/dL High 70-99 [facility] Serum or plasma calcium gordy urement (mass/volume)Ordered By: Renard Burgos on 11-11-2024 Calcium [Mass/Vol] 8.2 mg/dL 7.6-11.0 [facility] Serum or plasma urea nitroge n measurement (mass/volume)Ordered By: Renard Burgos on 11-11-2024 Urea nitrogen [Mass/Vol] 11 mg/dL 4-19 [facility] Sodium levelOrdered By: Lamine Burgos on 11-11-2024 Sodium [Moles/Vol] 140 mmol/L 133-145 [facility] White blood cell (WBC) count Ordered By: Renard Burgos on 11-11-2024 WBC (Bld) [#/Vol] 8.1 10*3/uL 4.4-11.0 [facility] Absolute lymphocyte countOrd ered By: Renard Burgos on 11-04-2024 Lymphocytes Auto (Unsp spec) [#/Vol] 2.18 10*3/uL 0.83-4.51 [facility] Absolute neutrophil countOrd ered By: Renard Burgos on 11-04-2024 Neutrophils (Bld) [#/Vol] 4.8 10*3/uL 2.0-7.7 [facility] Automated lymphocyte count a s percentage of total leukocytesOrdered By: Renard Burgos on 11-04-2024 Lymphocytes/100 WBC Auto (Unsp spec) 28.1 % 19-41 [facility] Basophil percentageOrdered B y: Renard Burgos on 11-04-2024 Basophils/100 WBC (Bld) 0.6 % 0-1 [facility] CBC W/Diff, Automatedon 07- PLT EST A Normal ADEQ [facility] Comment on above: Order Comment: 109 Performed By: #### L 100.0100 ####[facility] [address] [place], [place], [id number] PLT MORPH CLUMPED Normal [facility] Comment on above: Order Comment: 109 Performed By: #### L 100.0100 ####[facility] [address] [facility] [place], [place], [id number] Eosinophil percentageOrdered By: Renard Burgos on 11-04-2024 Eosinophils/100 WBC (Bld) 0.8 % 0-5 [facility] Erythrocyte distribution wid th ratioOrdered By: Renard Burgos on 11-04-2024 Erythrocyte distribution width (RBC) [Ratio] 13.3 % 11.6-14.6 [facility] Erythrocyte distribution wid th standard deviationOrdered By: Renard Burgos on 11-04-2024 Erythrocyte distribution width (RBC) [Ratio] 45.0 fl High 35.1-43.9 [facility] Hematocrit Auto (Bld) [Volum e fraction]Ordered By: Renard Burgos on 11-04-2024 Hematocrit (Bld) [Volume fraction] 42.8 % 40-54 [facility] Hemoglobin measurementOrdere d By: Renard Burgos on 11-04-2024 Hemoglobin (Bld) [Mass/Vol] 14.0 g/dL 13.0-16.5 [facility] Immature granulocytes/100 WB C Auto (Bld)Ordered By: Renard Burgos on 11-04-2024 Immature granulocytes/100 WBC (Bld) 0.400 % 0.0-0.9 [facility] Comment on above: IG% - Immature Granu locytes (promyelocytes, myelocytes and metamyelocytes) > 1% indicates that a LEFT SHIFT is Present. MCV (mean corpuscular volume ) determinationOrdered By: Renard Burgos on 11-04-2024 MCV (RBC) [Entitic vol] 92.4 fL 80-94 [facility] Mean corpuscular hemoglobin (MCH) determinationOrdered By: Renard Burgos on 11-04-2024 MCH (RBC) [Entitic mass] 30.2 pg 27.0-32.0 [facility] Mean corpuscular hemoglobin concentration (MCHC) determinationOrdered By: Renard Burgos on 11-04-2024 MCHC (RBC) [Mass/Vol] 32.7 g/dL 32-36 [facility] Mean platelet volume determi nationOrdered By: Renard Burgos on 11-04-2024 Platelet mean volume (Bld) [Entitic vol] 11.6 fL 6.2-12.0 [facility] Monocyte percentageOrdered B y: Renard Burgos on 11-04-2024 Monocytes/100 WBC (Bld) 8.4 % 0-10 [facility] Neutrophil percentageOrdered By: Renard Burgos on 11-04-2024 Neutrophils/100 WBC (Bld) 61.7 % 47-70 [facility] Nucleated red blood cell per centageOrdered By: Renard Burgos on 11-04-2024 Nucleated RBC/100 WBC (Bld) [Ratio] 0 % 0-5 [facility] Platelet countOrdered By: Garrick Bhatt on 11-04-2024 Platelet count TNP [facility] Comment on above: Test not performed Platelet estimateOrdered By: Renard Burgos on 11-04-2024 Platelets LM Ql (Bld) A ADEQ [facility] Platelet morphologyOrdered B y: Renard Burgos on 11-04-2024 Platelet morphology finding Nom (Bld) CLUMPED [facility] RBC Auto (Bld) [#/Vol]Ordere d By: Renard Burgos on 11-04-2024 RBC (Bld) [#/Vol] 4.63 10*6/uL 4.6-6.2 [facility] White blood cell (WBC) count Ordered By: Renard Burgos on 11-04-2024 WBC (Bld) [#/Vol] 7.8 10*3/uL 4.4-11.0 [facility] Absolute lymphocyte countOrd ered By: Renard Burgos on 10-28-2024 Lymphocytes Auto (Unsp spec) [#/Vol] 1.72 10*3/uL 0.83-4.51 [facility] Absolute neutrophil countOrd ered By: Renard Burgos on 10-28-2024 Neutrophils (Bld) [#/Vol] 5.0 10*3/uL 2.0-7.7 [facility] Automated lymphocyte count a s percentage of total leukocytesOrdered By: Renard Burgos on 10-28-2024 Lymphocytes/100 WBC Auto (Unsp spec) 22.9 % 19-41 [facility] Basophil percentageOrdered B y: Renard Burgos on 10-28-2024 Basophils/100 WBC (Bld) 0.7 % 0-1 [facility] CBC W/Diff, Automatedon 10-01 Absolute Lymph 1.72 X10 3/uL Normal 0.83-4.51 [facility] Comment on above: Order Comment: 109-1 Performed By: #### L 100.0100 ####[facility] [address] [place], [address] Absolute Neut 5.0 X10 3/uL Normal 2.0-7.7 [facility] Comment on above: Order Comment: 109-1 Performed By: #### L 100.0100 ####[facility] [address] [place], [address] Basophils/100 WBC (Bld) 0.7 % Normal 0-1 [facility] Comment on above: Order Comment: 109-1 Performed By: #### L 100.0100 ####[facility] [address] [place], [address] Eosinophils/100 WBC (Bld) 1.2 % Normal 0-5 [facility] Comment on above: Order Comment: 109-1 Performed By: #### L 100.0100 ####[facility] [address] [place], [address] Erythrocyte distribution width (RBC) [Ratio] 13.2 % Normal 11.6-14.6 [facility] Comment on above: Order Comment: 109-1 Performed By: #### L 100.0100 ####[facility] [address] [place], [address] Hematocrit (Bld) [Volume fraction] 37.3 % Low 40-54 [facility] Comment on above: Order Comment: 109-1 Performed By: #### L 100.0100 ####[facility] [address] [place], [address] Hemoglobin (Bld) [Mass/Vol] 12.3 g/dL Low 13.0-16.5 [facility] Comment on above: Order Comment: 109-1 Performed By: #### L 100.0100 ####[facility] [address] [place], [address] IG% 0.100 Normal 0.0-0.9 [facility] Comment on above: Order Comment: 109-1 Result Comment: IG% - Immature Granulocytes (promyelocytes, myelocytes andmetamyelocytes) > 1% indicates that a LEFT SHIFT is Present. Performed By: #### L 100.0100 ####[facility] [address] [place], [address] Lymphocytes/100 WBC (Bld) 22.9 % Normal 19-41 [facility] Comment on above: Order Comment: 109-1 Performed By: #### L 100.0100 ####[facility] [address] [place], [address] MCH (RBC) [Entitic mass] 30.1 pg Normal 27.0-32.0 [facility] Comment on above: Order Comment: 109-1 Performed By: #### L 100.0100 ####[facility] [address] [place], [address] MCHC (RBC) [Mass/Vol] 33.0 g/dL Normal 32-36 [facility] Comment on above: Order Comment: 109-1 Performed By: #### L 100.0100 ####[facility] [address] [place], [address] MCV (RBC) [Entitic vol] 91.4 fL Normal 80-94 [facility] Comment on above: Order Comment: 109-1 Performed By: #### L 100.0100 ####[facility] [address] [place], [address] Monocytes/100 WBC (Bld) 8.1 % Normal 0-10 [facility] Comment on above: Order Comment: 109-1 Performed By: #### L 100.0100 ####[facility] [address] [place], [address] Neutrophils/100 WBC (Bld) 67.0 % Normal 47-70 [facility] Comment on above: Order Comment: 109-1 Performed By: #### L 100.0100 ####[facility] [address] [place], [address] Nucleated RBC (Bld) [#/Vol] 0 10*3/uL Normal 0-5 [facility] Comment on above: Order Comment: 109-1 Performed By: #### L 100.0100 ####[facility] [address] [place], [address] Platelet mean volume (Bld) [Entitic vol] 11.3 fL Normal 6.2-12.0 [facility] Comment on above: Order Comment: 109-1 Performed By: #### L 100.0100 ####[facility] [address] [place], [address] Platelets (Bld) [#/Vol] 201 10*3/uL Normal 150-450 [facility] Comment on above: Order Comment: 109-1 Performed By: #### L 100.0100 ####[facility] [address] [place], [address] RBC (Bld) [#/Vol] 4.08 10*6/uL Low 4.6-6.2 [facility] Comment on above: Order Comment: 109-1 Performed By: #### L 100.0100 ####[facility] [address] [place], [address] RDW SD 44.0 fl High 35.1-43.9 [facility] Comment on above: Order Comment: 109-1 Performed By: #### L 100.0100 ####[facility] [address] [place], [address] WBC (Bld) [#/Vol] 7.5 10*3/uL Normal 4.4-11.0 [facility] Comment on above: Order Comment: 109-1 Performed By: #### L 100.0100 ####[facility] [address] [place], [address] Eosinophil percentageOrdered By: Renard Burgos on 10-28-2024 Eosinophils/100 WBC (Bld) 1.2 % 0-5 [facility] Erythrocyte distribution wid th ratioOrdered By: Renard Burgos on 10-28-2024 Erythrocyte distribution width (RBC) [Ratio] 13.2 % 11.6-14.6 [facility] Erythrocyte distribution wid th standard deviationOrdered By: Renard Burgos on 10-28-2024 Erythrocyte distribution width (RBC) [Ratio] 44.0 fl High 35.1-43.9 [facility] Hematocrit Auto (Bld) [Volum e fraction]Ordered By: Renard Burgos on 10-28-2024 Hematocrit (Bld) [Volume fraction] 37.3 % Low 40-54 [facility] Hemoglobin measurementOrdere d By: Renard Burgos on 10-28-2024 Hemoglobin (Bld) [Mass/Vol] 12.3 g/dL Low 13.0-16.5 [facility] Immature granulocytes/100 WB C Auto (Bld)Ordered By: Renard Burgos on 10-28-2024 Immature granulocytes/100 WBC (Bld) 0.100 % 0.0-0.9 [facility] Comment on above: IG% - Immature Granu locytes (promyelocytes, myelocytes and metamyelocytes) > 1% indicates that a LEFT SHIFT is Present. MCV (mean corpuscular volume ) determinationOrdered By: Renard Burgos on 10-28-2024 MCV (RBC) [Entitic vol] 91.4 fL 80-94 [facility] Mean corpuscular hemoglobin (MCH) determinationOrdered By: Renard Burgos on 10-28-2024 MCH (RBC) [Entitic mass] 30.1 pg 27.0-32.0 [facility] Mean corpuscular hemoglobin concentration (MCHC) determinationOrdered By: Renard Burgos on 10-28-2024 MCHC (RBC) [Mass/Vol] 33.0 g/dL 32-36 [facility] Mean platelet volume determi nationOrdered By: Renard Burgos on 10-28-2024 Platelet mean volume (Bld) [Entitic vol] 11.3 fL 6.2-12.0 [facility] Monocyte percentageOrdered B y: Renard Burgos on 10-28-2024 Monocytes/100 WBC (Bld) 8.1 % 0-10 [facility] Neutrophil percentageOrdered By: Renard Burgos on 10-28-2024 Neutrophils/100 WBC (Bld) 67.0 % 47-70 [facility] Nucleated red blood cell per centageOrdered By: Renard Burgos on 10-28-2024 Nucleated RBC/100 WBC (Bld) [Ratio] 0 % 0-5 [facility] Platelet countOrdered By: Garrick Bhatt on 10-28-2024 Platelets (Bld) [#/Vol] 201 10*3/uL 150-450 [facility] RBC Auto (Bld) [#/Vol]Ordere d By: Renard Burgos on 10-28-2024 RBC (Bld) [#/Vol] 4.08 10*6/uL Low 4.6-6.2 [facility] White blood cell (WBC) count Ordered By: Renard Burgos on 10-28-2024 WBC (Bld) [#/Vol] 7.5 10*3/uL 4.4-11.0 [facility] Absolute lymphocyte countOrd ered By: Renard Burgos on 10-21-2024 Lymphocytes Auto (Unsp spec) [#/Vol] 2.41 10*3/uL 0.83-4.51 [facility] Absolute neutrophil countOrd ered By: Renard Burgos on 10-21-2024 Neutrophils (Bld) [#/Vol] 5.2 10*3/uL 2.0-7.7 [facility] Automated lymphocyte count a s percentage of total leukocytesOrdered By: Renard Burgos on 10-21-2024 Lymphocytes/100 WBC Auto (Unsp spec) 28.2 % 19-41 [facility] Basophil percentageOrdered B y: Renard Burgos on 10-21-2024 Basophils/100 WBC (Bld) 0.6 % 0-1 [facility] CBC W/Diff, Automatedon 09-30 Absolute Lymph 2.41 X10 3/uL Normal 0.83-4.51 [facility] Comment on above: Order Comment: 109 Performed By: #### L 100.0100 ####[facility] [address] [place], [address] Absolute Neut 5.2 X10 3/uL Normal 2.0-7.7 [facility] Comment on above: Order Comment: 109 Performed By: #### L 100.0100 ####[facility] [address] [place], [address] Basophils/100 WBC (Bld) 0.6 % Normal 0-1 [facility] Comment on above: Order Comment: 109 Performed By: #### L 100.0100 ####[facility] [address] [place], [address] Eosinophils/100 WBC (Bld) 0.8 % Normal 0-5 [facility] Comment on above: Order Comment: 109 Performed By: #### L 100.0100 ####[facility] [address], [address] Erythrocyte distribution width (RBC) [Ratio] 13.3 % Normal 11.6-14.6 [facility] Comment on above: Order Comment: 109 Performed By: #### L 100.0100 ####[facility] [address] [place], [address] Hematocrit (Bld) [Volume fraction] 38.9 % Low 40-54 [facility] Comment on above: Order Comment: 109 Performed By: #### L 100.0100 ####[facility] [address] [place], [address] Hemoglobin (Bld) [Mass/Vol] 12.8 g/dL Low 13.0-16.5 [facility] Comment on above: Order Comment: 109 Performed By: #### L 100.0100 ####[facility] [address] [place], [address] IG% 0.400 Normal 0.0-0.9 [facility] Comment on above: Order Comment: 109 Result Comment: IG% - Immature Granulocytes (promyelocytes, myelocytes andmetamyelocytes) > 1% indicates that a LEFT SHIFT is Present. Performed By: #### L 100.0100 ####[facility] [address] [place], [address] Lymphocytes/100 WBC (Bld) 28.2 % Normal 19-41 [facility] Comment on above: Order Comment: 109 Performed By: #### L 100.0100 ####[facility] [address] [place], [address] MCH (RBC) [Entitic mass] 30.1 pg Normal 27.0-32.0 [facility] Comment on above: Order Comment: 109 Performed By: #### L 100.0100 ####[facility] [address] [place], [address] MCHC (RBC) [Mass/Vol] 32.9 g/dL Normal 32-36 [facility] Comment on above: Order Comment: 109 Performed By: #### L 100.0100 ####[facility] [address] [place], [address] MCV (RBC) [Entitic vol] 91.5 fL Normal 80-94 [facility] Comment on above: Order Comment: 109 Performed By: #### L 100.0100 ####[facility] [address] [place], [address] Monocytes/100 WBC (Bld) 9.1 % Normal 0-10 [facility] Comment on above: Order Comment: 109 Performed By: #### L 100.0100 ####[facility] [address] [place], [address] Neutrophils/100 WBC (Bld) 60.9 % Normal 47-70 [facility] Comment on above: Order Comment: 109 Performed By: #### L 100.0100 ####[facility] [address] [place], [address] Nucleated RBC (Bld) [#/Vol] 0 10*3/uL Normal 0-5 [facility] Comment on above: Order Comment: 109 Performed By: #### L 100.0100 ####[facility] [address] [place], [address] Platelet mean volume (Bld) [Entitic vol] 11.2 fL Normal 6.2-12.0 [facility] Comment on above: Order Comment: 109 Performed By: #### L 100.0100 ####[facility] [address] [place], [address] Platelets (Bld) [#/Vol] 204 10*3/uL Normal 150-450 [facility] Comment on above: Order Comment: 109 Performed By: #### L 100.0100 ####[facility] [address] [place], [address] RBC (Bld) [#/Vol] 4.25 10*6/uL Low 4.6-6.2 [facility] Comment on above: Order Comment: 109 Performed By: #### L 100.0100 ####[facility] [address] [place], [address] RDW SD 44.5 fl High 35.1-43.9 [facility] Comment on above: Order Comment: 109 Performed By: #### L 100.0100 ####[facility] [address] [place], [address] WBC (Bld) [#/Vol] 8.5 10*3/uL Normal 4.4-11.0 [facility] Comment on above: Order Comment: 109 Performed By: #### L 100.0100 ####[facility] [address] [place], [address] Eosinophil percentageOrdered By: Renard Burgos on 10-21-2024 Eosinophils/100 WBC (Bld) 0.8 % 0-5 [facility] Erythrocyte distribution wid th ratioOrdered By: Renard Burgos on 10-21-2024 Erythrocyte distribution width (RBC) [Ratio] 13.3 % 11.6-14.6 [facility] Erythrocyte distribution wid th standard deviationOrdered By: Renard Burgos on 10-21-2024 Erythrocyte distribution width (RBC) [Ratio] 44.5 fl High 35.1-43.9 [facility] Hematocrit Auto (Bld) [Volum e fraction]Ordered By: Renrad Burgos on 10-21-2024 Hematocrit (Bld) [Volume fraction] 38.9 % Low 40-54 [facility] Hemoglobin measurementOrdere d By: Renard Burgos on 10-21-2024 Hemoglobin (Bld) [Mass/Vol] 12.8 g/dL Low 13.0-16.5 [facility] Immature granulocytes/100 WB C Auto (Bld)Ordered By: Renard Burgos on 10-21-2024 Immature granulocytes/100 WBC (Bld) 0.400 % 0.0-0.9 [facility] Comment on above: IG% - Immature Granu locytes (promyelocytes, myelocytes and metamyelocytes) > 1% indicates that a LEFT SHIFT is Present. MCV (mean corpuscular volume ) determinationOrdered By: Renard Burgos on 10-21-2024 MCV (RBC) [Entitic vol] 91.5 fL 80-94 [facility] Mean corpuscular hemoglobin (MCH) determinationOrdered By: Renard Burgos on 10-21-2024 MCH (RBC) [Entitic mass] 30.1 pg 27.0-32.0 [facility] Mean corpuscular hemoglobin concentration (MCHC) determinationOrdered By: Renard Burgos on 10-21-2024 MCHC (RBC) [Mass/Vol] 32.9 g/dL 32-36 [facility] Mean platelet volume determi nationOrdered By: Renard Burgos on 10-21-2024 Platelet mean volume (Bld) [Entitic vol] 11.2 fL 6.2-12.0 [facility] Monocyte percentageOrdered B y: Renard Burgos on 10-21-2024 Monocytes/100 WBC (Bld) 9.1 % 0-10 [facility] Neutrophil percentageOrdered By: Renard Burgos on 10-21-2024 Neutrophils/100 WBC (Bld) 60.9 % 47-70 [facility] Nucleated red blood cell per centageOrdered By: Renard Burgos on 10-21-2024 Nucleated RBC/100 WBC (Bld) [Ratio] 0 % 0-5 [facility] Platelet countOrdered By: Garrick Bhatt on 10-21-2024 Platelets (Bld) [#/Vol] 204 10*3/uL 150-450 [facility] RBC Auto (Bld) [#/Vol]Ordere d By: Renard Burgos on 10-21-2024 RBC (Bld) [#/Vol] 4.25 10*6/uL Low 4.6-6.2 [facility] White blood cell (WBC) count Ordered By: Renard Burgos on 10-21-2024 WBC (Bld) [#/Vol] 8.5 10*3/uL 4.4-11.0 [facility] Absolute lymphocyte countOrd ered By: Renard Burgos on 10-14-2024 Lymphocytes Auto (Unsp spec) [#/Vol] 1.77 10*3/uL 0.83-4.51 [facility] Absolute neutrophil countOrd ered By: Renard Burgos on 10-14-2024 Neutrophils (Bld) [#/Vol] 4.8 10*3/uL 2.0-7.7 [facility] Automated lymphocyte count a s percentage of total leukocytesOrdered By: Renard Burgos on 10-14-2024 Lymphocytes/100 WBC Auto (Unsp spec) 24.2 % 19-41 [facility] Basophil percentageOrdered B y: Renard Burgos on 10-14-2024 Basophils/100 WBC (Bld) 0.7 % 0-1 [facility] CBC W/Diff, Automatedon 09-29 Absolute Lymph 1.77 X10 3/uL Normal 0.83-4.51 [facility] Comment on above: Order Comment: 109 Performed By: #### L 100.0100 ####[facility] [address] [place], [address] Absolute Neut 4.8 X10 3/uL Normal 2.0-7.7 [facility] Comment on above: Order Comment: 109 Performed By: #### L 100.0100 ####[facility] [address] [place], [address] Basophils/100 WBC (Bld) 0.7 % Normal 0-1 W [facility] Comment on above: Order Comment: 109 Performed By: #### L 100.0100 ####[facility] [address] [place], [address] Eosinophils/100 WBC (Bld) 0.8 % Normal 0-5 [facility] Comment on above: Order Comment: 109 Performed By: #### L 100.0100 ####[facility] [address] [place], [address] Erythrocyte distribution width (RBC) [Ratio] 13.2 % Normal 11.6-14.6 [facility] Comment on above: Order Comment: 109 Performed By: #### L 100.0100 ####[facility] [address] [place], [address] Hematocrit (Bld) [Volume fraction] 42.7 % Normal 40-54 [facility] Comment on above: Order Comment: 109 Performed By: #### L 100.0100 ####[facility] [address] [place], [address] Hemoglobin (Bld) [Mass/Vol] 13.9 g/dL Normal 13.0-16.5 [facility] Comment on above: Order Comment: 109 Performed By: #### L 100.0100 ####[facility] [address] [place], [address] IG% 0.300 Normal 0.0-0.9 [facility] Comment on above: Order Comment: 109 Result Comment: IG% - Immature Granulocytes (promyelocytes, myelocytes andmetamyelocytes) > 1% indicates that a LEFT SHIFT is Present. Performed By: #### L 100.0100 ####[facility] [address] [place], [address] Lymphocytes/100 WBC (Bld) 24.2 % Normal 19-41 [facility] Comment on above: Order Comment: 109 Performed By: #### L 100.0100 ####[facility] [address] [place], [address] MCH (RBC) [Entitic mass] 29.7 pg Normal 27.0-32.0 [facility] Comment on above: Order Comment: 109 Performed By: #### L 100.0100 ####[facility] [address] [place], [address] MCHC (RBC) [Mass/Vol] 32.6 g/dL Normal 32-36 [facility] Comment on above: Order Comment: 109 Performed By: #### L 100.0100 ####[facility] [address] [place], [address] MCV (RBC) [Entitic vol] 91.2 fL Normal 80-94 [facility] Comment on above: Order Comment: 109 Performed By: #### L 100.0100 ####[facility] [address] [place], [address] Monocytes/100 WBC (Bld) 8.6 % Normal 0-10 [facility] Comment on above: Order Comment: 109 Performed By: #### L 100.0100 ####[facility] [address] [place], [address] Neutrophils/100 WBC (Bld) 65.4 % Normal 47-70 [facility] Comment on above: Order Comment: 109 Performed By: #### L 100.0100 ####[facility] [address] [place], [address] Nucleated RBC (Bld) [#/Vol] 0 10*3/uL Normal 0-5 [facility] Comment on above: Order Comment: 109 Performed By: #### L 100.0100 ####[facility] [address] [place], [address] Platelet mean volume (Bld) [Entitic vol] 11.1 fL Normal 6.2-12.0 [facility] Comment on above: Order Comment: 109 Performed By: #### L 100.0100 ####[facility] [address] [place], [address] Platelets (Bld) [#/Vol] 232 10*3/uL Normal 150-450 [facility] Comment on above: Order Comment: 109 Performed By: #### L 100.0100 ####[facility] [address] [place], [address] RBC (Bld) [#/Vol] 4.68 10*6/uL Normal 4.6-6.2 [facility] Comment on above: Order Comment: 109 Performed By: #### L 100.0100 ####[facility] [address] [place], [address] RDW SD 44.1 fl High 35.1-43.9 [facility] Comment on above: Order Comment: 109 Performed By: #### L 100.0100 ####[facility] [address] [place], [address] WBC (Bld) [#/Vol] 7.3 10*3/uL Normal 4.4-11.0 [facility] Comment on above: Order Comment: 109 Performed By: #### L 100.0100 ####[facility] [address] [place], [address] Eosinophil percentageOrdered By: Renard Burgos on 10-14-2024 Eosinophils/100 WBC (Bld) 0.8 % 0-5 [facility] Erythrocyte distribution wid th ratioOrdered By: Renard Burgos on 10-14-2024 Erythrocyte distribution width (RBC) [Ratio] 13.2 % 11.6-14.6 [facility] Erythrocyte distribution wid th standard deviationOrdered By: Renard Burgos on 10-14-2024 Erythrocyte distribution width (RBC) [Ratio] 44.1 fl High 35.1-43.9 [facility] Hematocrit Auto (Bld) [Volum e fraction]Ordered By: Renard Burgos on 10-14-2024 Hematocrit (Bld) [Volume fraction] 42.7 % 40-54 [facility] Hemoglobin measurementOrdere d By: Renard Burgos on 10-14-2024 Hemoglobin (Bld) [Mass/Vol] 13.9 g/dL 13.0-16.5 [facility] Immature granulocytes/100 WB C Auto (Bld)Ordered By: Renard Burgos on 10-14-2024 Immature granulocytes/100 WBC (Bld) 0.300 % 0.0-0.9 [facility] Comment on above: IG% - Immature Granu locytes (promyelocytes, myelocytes and metamyelocytes) > 1% indicates that a LEFT SHIFT is Present. MCV (mean corpuscular volume ) determinationOrdered By: Renard Burgos on 10-14-2024 MCV (RBC) [Entitic vol] 91.2 fL 80-94 [facility] Mean corpuscular hemoglobin (MCH) determinationOrdered By: Renard Burgos on 10-14-2024 MCH (RBC) [Entitic mass] 29.7 pg 27.0-32.0 [facility] Mean corpuscular hemoglobin concentration (MCHC) determinationOrdered By: Renard Burgos on 10-14-2024 MCHC (RBC) [Mass/Vol] 32.6 g/dL 32-36 [facility] Mean platelet volume determi nationOrdered By: Renard Burgos on 10-14-2024 Platelet mean volume (Bld) [Entitic vol] 11.1 fL 6.2-12.0 [facility] Monocyte percentageOrdered B y: Renard Burgos on 10-14-2024 Monocytes/100 WBC (Bld) 8.6 % 0-10 [facility] Neutrophil percentageOrdered By: Renard Burgos on 10-14-2024 Neutrophils/100 WBC (Bld) 65.4 % 47-70 [facility] Nucleated red blood cell per centageOrdered By: Renard Burgos on 10-14-2024 Nucleated RBC/100 WBC (Bld) [Ratio] 0 % 0-5 [facility] Platelet countOrdered By: Garrick Bhatt on 10-14-2024 Platelets (Bld) [#/Vol] 232 10*3/uL 150-450 [facility] RBC Auto (Bld) [#/Vol]Ordere d By: Renard Burgos on 10-14-2024 RBC (Bld) [#/Vol] 4.68 10*6/uL 4.6-6.2 [facility] White blood cell (WBC) count Ordered By: Renard Burgos on 10-14-2024 WBC (Bld) [#/Vol] 7.3 10*3/uL 4.4-11.0 [facility] Absolute lymphocyte countOrd ered By: Renard Burgos on 10-07-2024 Lymphocytes Auto (Unsp spec) [#/Vol] 2.20 10*3/uL 0.83-4.51 [facility] Absolute neutrophil countOrd ered By: Renard Burgos on 10-07-2024 Neutrophils (Bld) [#/Vol] 5.1 10*3/uL 2.0-7.7 [facility] Automated lymphocyte count a s percentage of total leukocytesOrdered By: Renard Burgos on 10-07-2024 Lymphocytes/100 WBC Auto (Unsp spec) 27.2 % 19-41 [facility] Basophil percentageOrdered B y: Renard Burgos on 10-07-2024 Basophils/100 WBC (Bld) 0.5 % 0-1 [facility] CBC W/Diff, Automatedon Absolute Lymph 2.20 X10 3/uL Normal 0.83-4.51 [facility] Comment on above: Order Comment: 109-1 Performed By: #### L 100.0100 ####[facility] [address] [place], [address] Absolute Neut 5.1 X10 3/uL Normal 2.0-7.7 [facility] Comment on above: Order Comment: 109-1 Performed By: #### L 100.0100 ####[facility] [address] [place], [address] Basophils/100 WBC (Bld) 0.5 % Normal 0-1 [facility] Comment on above: Order Comment: 109-1 Performed By: #### L 100.0100 ####[facility] [address] [place], [address] Eosinophils/100 WBC (Bld) 0.9 % Normal 0-5 [facility] Comment on above: Order Comment: 109-1 Performed By: #### L 100.0100 ####[facility] [address] [place], [address] Erythrocyte distribution width (RBC) [Ratio] 13.2 % Normal 11.6-14.6 [facility] Comment on above: Order Comment: 109-1 Performed By: #### L 100.0100 ####[facility] [address] [place], [address] Hematocrit (Bld) [Volume fraction] 40.8 % Normal 40-54 [facility] Comment on above: Order Comment: 109-1 Performed By: #### L 100.0100 ####[facility] [address] [place], [address] Hemoglobin (Bld) [Mass/Vol] 13.8 g/dL Normal 13.0-16.5 [facility] Comment on above: Order Comment: 109-1 Performed By: #### L 100.0100 ####[facility] [address] [place], [address] IG% 0.200 Normal 0.0-0.9 [facility] Comment on above: Order Comment: 109-1 Result Comment: IG% - Immature Granulocytes (promyelocytes, myelocytes andmetamyelocytes) > 1% indicates that a LEFT SHIFT is Present. Performed By: #### L 100.0100 ####[facility] [address] [place], [address] Lymphocytes/100 WBC (Bld) 27.2 % Normal 19-41 [facility] Comment on above: Order Comment: 109-1 Performed By: #### L 100.0100 ####[facility] [address] [place], [address] MCH (RBC) [Entitic mass] 30.0 pg Normal 27.0-32.0 [facility] Comment on above: Order Comment: 109-1 Performed By: #### L 100.0100 ####[facility] [address] [place], [address] MCHC (RBC) [Mass/Vol] 33.8 g/dL Normal 32-36 [facility] Comment on above: Order Comment: 109-1 Performed By: #### L 100.0100 ####[facility] [address] [place], [address] MCV (RBC) [Entitic vol] 88.7 fL Normal 80-94 [facility] Comment on above: Order Comment: 109-1 Performed By: #### L 100.0100 ####[facility] [address] [place], [address] Monocytes/100 WBC (Bld) 8.4 % Normal 0-10 [facility] Comment on above: Order Comment: 109-1 Performed By: #### L 100.0100 ####[facility] [address] [place], [address] Neutrophils/100 WBC (Bld) 62.8 % Normal 47-70 [facility] Comment on above: Order Comment: 109-1 Performed By: #### L 100.0100 ####[facility] [address] [place], [address] Nucleated RBC (Bld) [#/Vol] 0 10*3/uL Normal 0-5 [facility] Comment on above: Order Comment: 109-1 Performed By: #### L 100.0100 ####[facility] [address] [place], [address] Platelet mean volume (Bld) [Entitic vol] 11.2 fL Normal 6.2-12.0 [facility] Comment on above: Order Comment: 109-1 Performed By: #### L 100.0100 ####[facility] [address] [place], [address] Platelets (Bld) [#/Vol] 214 10*3/uL Normal 150-450 [facility] Comment on above: Order Comment: 109-1 Performed By: #### L 100.0100 ####[facility] [address] [place], [address] RBC (Bld) [#/Vol] 4.60 10*6/uL Normal 4.6-6.2 [facility] Comment on above: Order Comment: 109-1 Performed By: #### L 100.0100 ####[facility] [address] [place], [address] RDW SD 43.0 fl Normal 35.1-43.9 [facility] Comment on above: Order Comment: 109-1 Performed By: #### L 100.0100 ####[facility] [address] [place], [address] WBC (Bld) [#/Vol] 8.1 10*3/uL Normal 4.4-11.0 [facility] Comment on above: Order Comment: 109-1 Performed By: #### L 100.0100 ####[facility] [address] [place], [address] Eosinophil percentageOrdered By: Renard Burgos on 10-07-2024 Eosinophils/100 WBC (Bld) 0.9 % 0-5 [facility] Erythrocyte distribution wid th ratioOrdered By: Renard Burgos on 10-07-2024 Erythrocyte distribution width (RBC) [Ratio] 13.2 % 11.6-14.6 [facility] Erythrocyte distribution wid th standard deviationOrdered By: Renard Burgos on 10-07-2024 Erythrocyte distribution width (RBC) [Ratio] 43.0 fl 35.1-43.9 [facility] Hematocrit Auto (Bld) [Volum e fraction]Ordered By: Renard Burgos on 10-07-2024 Hematocrit (Bld) [Volume fraction] 40.8 % 40-54 [facility] Hemoglobin measurementOrdere d By: Renard Burgos on 10-07-2024 Hemoglobin (Bld) [Mass/Vol] 13.8 g/dL 13.0-16.5 [facility] Immature granulocytes/100 WB C Auto (Bld)Ordered By: Renard Burgos on 10-07-2024 Immature granulocytes/100 WBC (Bld) 0.200 % 0.0-0.9 [facility] Comment on above: IG% - Immature Granu locytes (promyelocytes, myelocytes and metamyelocytes) > 1% indicates that a LEFT SHIFT is Present. MCV (mean corpuscular volume ) determinationOrdered By: Renard Burgos on 10-07-2024 MCV (RBC) [Entitic vol] 88.7 fL 80-94 [facility] Mean corpuscular hemoglobin (MCH) determinationOrdered By: Renard Burgos on 10-07-2024 MCH (RBC) [Entitic mass] 30.0 pg 27.0-32.0 [facility] Mean corpuscular hemoglobin concentration (MCHC) determinationOrdered By: Renard Burgos on 10-07-2024 MCHC (RBC) [Mass/Vol] 33.8 g/dL 32-36 [facility] Mean platelet volume determi nationOrdered By: Renard Burgos on 10-07-2024 Platelet mean volume (Bld) [Entitic vol] 11.2 fL 6.2-12.0 [facility] Monocyte percentageOrdered B y: Renard Burgos on 10-07-2024 Monocytes/100 WBC (Bld) 8.4 % 0-10 [facility] Neutrophil percentageOrdered By: Renard Burgos on 06-09-2025 Neutrophils/100 WBC (Bld) 62.8 % 47-70 [facility] Nucleated red blood cell per centageOrdered By: Renard Burgos on 10-07-2024 Nucleated RBC/100 WBC (Bld) [Ratio] 0 % 0-5 [facility] Platelet countOrdered By: Garrick Bhatt on 10-07-2024 Platelets (Bld) [#/Vol] 214 10*3/uL 150-450 [facility] RBC Auto (Bld) [#/Vol]Ordere d By: Renard Burgos on 10-07-2024 RBC (Bld) [#/Vol] 4.60 10*6/uL 4.6-6.2 [facility] White blood cell (WBC) count Ordered By: Renard Burgos on 10-07-2024 WBC (Bld) [#/Vol] 8.1 10*3/uL 4.4-11.0 [facility] Absolute lymphocyte countOrd ered By: Renard Burgos on 09-30-2024 Lymphocytes Auto (Unsp spec) [#/Vol] 3.13 10*3/uL 0.83-4.51 [facility] Absolute neutrophil countOrd ered By: Renard Burgos on 09-30-2024 Neutrophils (Bld) [#/Vol] 5.6 10*3/uL 2.0-7.7 [facility] Automated lymphocyte count a s percentage of total leukocytesOrdered By: Renard Burgos on 09-30-2024 Lymphocytes/100 WBC Auto (Unsp spec) 31.7 % 19-41 [facility] Basophil percentageOrdered B y: Renard Burgos on 09-30-2024 Basophils/100 WBC (Bld) 0.6 % 0-1 [facility] CBC W/Diff, Automatedon Absolute Lymph 3.13 X10 3/uL Normal 0.83-4.51 [facility] Comment on above: Order Comment: 109-1 Performed By: #### L 100.0100 ####[facility] [address] [place], [address] Absolute Neut 5.6 X10 3/uL Normal 2.0-7.7 [facility] Comment on above: Order Comment: 109-1 Performed By: #### L 100.0100 ####[facility] [address] [place], [address] Basophils/100 WBC (Bld) 0.6 % Normal 0-1 [facility] Comment on above: Order Comment: 109-1 Performed By: #### L 100.0100 ####[facility] [address] [place], [address] Eosinophils/100 WBC (Bld) 0.7 % Normal 0-5 [facility] Comment on above: Order Comment: 109-1 Performed By: #### L 100.0100 ####[facility] [address] [place], [address] Erythrocyte distribution width (RBC) [Ratio] 13.0 % Normal 11.6-14.6 [facility] Comment on above: Order Comment: 109-1 Performed By: #### L 100.0100 ####[facility] [address] [place], [address] Hematocrit (Bld) [Volume fraction] 46.9 % Normal 40-54 [facility] Comment on above: Order Comment: 109-1 Performed By: #### L 100.0100 ####[facility] [address] [place], [address] Hemoglobin (Bld) [Mass/Vol] 15.3 g/dL Normal 13.0-16.5 [facility] Comment on above: Order Comment: 109-1 Performed By: #### L 100.0100 ####[facility] [address] [place], [address] IG% 0.300 Normal 0.0-0.9 [facility] Comment on above: Order Comment: 109-1 Result Comment: IG% - Immature Granulocytes (promyelocytes, myelocytes andmetamyelocytes) > 1% indicates that a LEFT SHIFT is Present. Performed By: #### L 100.0100 ####[facility] [address] [place], [address] Lymphocytes/100 WBC (Bld) 31.7 % Normal 19-41 [facility] Comment on above: Order Comment: 109-1 Performed By: #### L 100.0100 ####[facility] [address] [place], [address] MCH (RBC) [Entitic mass] 29.7 pg Normal 27.0-32.0 [facility] Comment on above: Order Comment: 109-1 Performed By: #### L 100.0100 ####[facility] [address] [place], [address] MCHC (RBC) [Mass/Vol] 32.6 g/dL Normal 32-36 [facility] Comment on above: Order Comment: 109-1 Performed By: #### L 100.0100 ####[facility] [address] [place], [address] MCV (RBC) [Entitic vol] 91.1 fL Normal 80-94 [facility] Comment on above: Order Comment: 109-1 Performed By: #### L 100.0100 ####[facility] [address] [place], [address] Monocytes/100 WBC (Bld) 10.4 % High 0-10 [facility] Comment on above: Order Comment: 109-1 Performed By: #### L 100.0100 ####[facility] [address] [place], [address] Neutrophils/100 WBC (Bld) 56.3 % Normal 47-70 [facility] Comment on above: Order Comment: 109-1 Performed By: #### L 100.0100 ####[facility] [address] [place], [address] Nucleated RBC (Bld) [#/Vol] 0 10*3/uL Normal 0-5 [facility] Comment on above: Order Comment: 109-1 Performed By: #### L 100.0100 ####[facility] [address] [place], [address] Platelet mean volume (Bld) [Entitic vol] 11.7 fL Normal 6.2-12.0 [facility] Comment on above: Order Comment: 109-1 Performed By: #### L 100.0100 ####[facility] [address] [place], [address] Platelets (Bld) [#/Vol] 208 10*3/uL Normal 150-450 [facility] Comment on above: Order Comment: 109-1 Performed By: #### L 100.0100 ####[facility] [address] [place], [address] RBC (Bld) [#/Vol] 5.15 10*6/uL Normal 4.6-6.2 [facility] Comment on above: Order Comment: 109-1 Performed By: #### L 100.0100 ####[facility] [address] [place], [address] RDW SD 42.7 fl Normal 35.1-43.9 [facility] Comment on above: Order Comment: 109-1 Performed By: #### L 100.0100 ####[facility] [address] [place], [address] WBC (Bld) [#/Vol] 9.9 10*3/uL Normal 4.4-11.0 [facility] Comment on above: Order Comment: 109-1 Performed By: #### L 100.0100 ####[facility] [address] [place], [address] Eosinophil percentageOrdered By: Renard Burgos on 09-30-2024 Eosinophils/100 WBC (Bld) 0.7 % 0-5 [facility] Erythrocyte distribution wid th ratioOrdered By: Renard Burgos on 09-30-2024 Erythrocyte distribution width (RBC) [Ratio] 13.0 % 11.6-14.6 [facility] Erythrocyte distribution wid th standard deviationOrdered By: Renard Burgos on 09-30-2024 Erythrocyte distribution width (RBC) [Ratio] 42.7 fl 35.1-43.9 [facility] Hematocrit Auto (Bld) [Volum e fraction]Ordered By: Renard Burgos on 09-30-2024 Hematocrit (Bld) [Volume fraction] 46.9 % 40-54 [facility] Hemoglobin measurementOrdere d By: Renard Burgos on 09-30-2024 Hemoglobin (Bld) [Mass/Vol] 15.3 g/dL 13.0-16.5 [facility] Immature granulocytes/100 WB C Auto (Bld)Ordered By: Renard Burgos on 09-30-2024 Immature granulocytes/100 WBC (Bld) 0.300 % 0.0-0.9 [facility] Comment on above: IG% - Immature Granu locytes (promyelocytes, myelocytes and metamyelocytes) > 1% indicates that a LEFT SHIFT is Present. MCV (mean corpuscular volume ) determinationOrdered By: Renard Burgos on 09-30-2024 MCV (RBC) [Entitic vol] 91.1 fL 80-94 [facility] Mean corpuscular hemoglobin (MCH) determinationOrdered By: Renard Burgos on 09-30-2024 MCH (RBC) [Entitic mass] 29.7 pg 27.0-32.0 [facility] Mean corpuscular hemoglobin concentration (MCHC) determinationOrdered By: Renard Burgos on 09-30-2024 MCHC (RBC) [Mass/Vol] 32.6 g/dL 32-36 [facility] Mean platelet volume determi nationOrdered By: Renard Burgos on 09-30-2024 Platelet mean volume (Bld) [Entitic vol] 11.7 fL 6.2-12.0 [facility] Monocyte percentageOrdered B y: Renard Burgos on 09-30-2024 Monocytes/100 WBC (Bld) 10.4 % High 0-10 [facility] Neutrophil percentageOrdered By: Renard Burgos on 09-30-2024 Neutrophils/100 WBC (Bld) 56.3 % 47-70 [facility] Nucleated red blood cell per centageOrdered By: Renard Burgos on 09-30-2024 Nucleated RBC/100 WBC (Bld) [Ratio] 0 % 0-5 [facility] Platelet countOrdered By: Garrick Bhatt on 09-30-2024 Platelets (Bld) [#/Vol] 208 10*3/uL 150-450 [facility] RBC Auto (Bld) [#/Vol]Ordere d By: Renard Burgos on 09-30-2024 RBC (Bld) [#/Vol] 5.15 10*6/uL 4.6-6.2 [facility] White blood cell (WBC) count Ordered By: Renard Burgos on 09-30-2024 WBC (Bld) [#/Vol] 9.9 10*3/uL 4.4-11.0 [facility] Absolute lymphocyte countOrd ered By: Renard Burgos on 09-24-2024 Lymphocytes Auto (Unsp spec) [#/Vol] 1.97 10*3/uL 0.83-4.51 [facility] Absolute neutrophil countOrd ered By: Renard Burgos on 09-24-2024 Neutrophils (Bld) [#/Vol] 6.8 10*3/uL 2.0-7.7 [facility] Automated blood erythrocyte countOrdered By: Renard Burgos on 09-24-2024 RBC (Bld) [#/Vol] 4.48 10*6/uL Low 4.6-6.2 [facility] Comment on above: Order Comment: 109 Performed By: #### L 100.0100 ####[facility] [address] [place], [place], [id number] Automated blood hematocrit ( percentage)Ordered By: Renard Burgos on 09-24-2024 Hematocrit (Bld) [Volume fraction] 40.4 % Normal 40-54 [facility] Comment on above: Order Comment: 109 Performed By: #### L 100.0100 ####[facility] [address] [place], [address] Automated lymphocyte count a s percentage of total leukocytesOrdered By: Renard Hensleyrustam on 09-24-2024 Lymphocytes/100 WBC Auto (Unsp spec) 20.5 % - [facility] Basophil percentageOrdered B y: Renard Amezquitahola on 09-24-2024 Basophils/100 WBC (Bld) 0.5 % Normal 0-1 [facility] Comment on above: Order Comment: 109 Performed By: #### L 100.0100 ####[facility] [address] [place], [address] CBC W/Diff, Automatedon 08-30 Absolute Lymph 1.97 X10 3/uL Normal 0.83-4.51 [facility] Comment on above: Order Comment: 109 Performed By: #### L 100.0100 ####[facility] [address] [place], [address] Absolute Neut 6.8 X10 3/uL Normal 2.0-7.7 [facility] Comment on above: Order Comment: 109 Performed By: #### L 100.0100 ####[facility] [address] [place], [address] IG% 0.300 Normal 0.0-0.9 [facility] Comment on above: Order Comment: 109 Result Comment: IG% - Immature Granulocytes (promyelocytes, myelocytes andmetamyelocytes) > 1% indicates that a LEFT SHIFT is Present. Performed By: #### L 100.0100 ####[facility] [address] [place], [address] Lymphocytes/100 WBC (Bld) 20.5 % Normal - [facility] Comment on above: Order Comment: 109 Performed By: #### L 100.0100 ####[facility] [address] [place], [address] Nucleated RBC (Bld) [#/Vol] 0 10*3/uL Normal 0-5 [facility] Comment on above: Order Comment: 109 Performed By: #### L 100.0100 ####[facility] [address] [place], [address] RDW SD 42.9 fl Normal 35.1-43.9 [facility] Comment on above: Order Comment: 109 Performed By: #### L 100.0100 ####[facility] [address] [place], [address] Eosinophil percentageOrdered By: Renard Burgos on 09-24-2024 Eosinophils/100 WBC (Bld) 0.5 % Normal 0-5 [facility] Comment on above: Order Comment: 109 Performed By: #### L 100.0100 ####[facility] [address] [place], [address] Erythrocyte distribution wid th ratioOrdered By: Renard Burgos on 09-24-2024 Erythrocyte distribution width (RBC) [Ratio] 13.1 % Normal 11.6-14.6 [facility] Comment on above: Order Comment: 109 Performed By: #### L 100.0100 ####[facility] [address] [place], [address] Erythrocyte distribution wid th standard deviationOrdered By: Renard Burgos on 09-24-2024 Erythrocyte distribution width (RBC) [Ratio] 42.9 fl 35.1-43.9 [facility] Hemoglobin measurementOrdere d By: Renard Burgos on 09-24-2024 Hemoglobin (Bld) [Mass/Vol] 13.4 g/dL Normal 13.0-16.5 [facility] Comment on above: Order Comment: 109 Performed By: #### L 100.0100 ####[facility] [address] [place], [address] Immature granulocytes/100 WB C Auto (Bld)Ordered By: Renard Burgos on 09-24-2024 Immature granulocytes/100 WBC (Bld) 0.300 % 0.0-0.9 [facility] Comment on above: IG% - Immature Granu locytes (promyelocytes, myelocytes and metamyelocytes) > 1% indicates that a LEFT SHIFT is Present. MCV (mean corpuscular volume ) determinationOrdered By: Renard Burgos on 09-24-2024 MCV (RBC) [Entitic vol] 90.2 fL Normal 80-94 [facility] Comment on above: Order Comment: 109 Performed By: #### L 100.0100 ####[facility] [address] [place], [place], [phone] Mean corpuscular hemoglobin (MCH) determinationOrdered By: Renard Burgos on 09-24-2024 MCH (RBC) [Entitic mass] 29.9 pg Normal 27.0-32.0 [facility] Comment on above: Order Comment: 109 Performed By: #### L 100.0100 ####[facility] [address] [place], [place], [phone] Mean corpuscular hemoglobin concentration (MCHC) determinationOrdered By: Renard Burgos on 09-24-2024 MCHC (RBC) [Mass/Vol] 33.2 g/dL Normal 32-36 [facility] Comment on above: Order Comment: 109 Performed By: #### L 100.0100 ####[facility] [address] [place], [place], [phone] Mean platelet volume determi nationOrdered By: Renard Burgos on 09-24-2024 Platelet mean volume (Bld) [Entitic vol] 11.3 fL Normal 6.2-12.0 [facility] Comment on above: Order Comment: 109 Performed By: #### L 100.0100 ####[facility] [address] [place], [place], [phone] Monocyte percentageOrdered B y: Renard Burgos on 09-24-2024 Monocytes/100 WBC (Bld) 7.2 % Normal 0-10 [facility] Comment on above: Order Comment: 109 Performed By: #### L 100.0100 ####[facility] [address] [place], [address] Neutrophil percentageOrdered By: Renard Burgos on 09-24-2024 Neutrophils/100 WBC (Bld) 71.0 % High 47-70 [facility] Comment on above: Order Comment: 109 Performed By: #### L 100.0100 ####[facility] [address] [place], [address] Nucleated red blood cell per centageOrdered By: Renard Burgos on 09-24-2024 Nucleated RBC/100 WBC (Bld) [Ratio] 0 % 0-5 [facility] Platelet countOrdered By: Garrick Bhatt on 09-24-2024 Platelets (Bld) [#/Vol] 187 10*3/uL Normal 150-450 [facility] Comment on above: Order Comment: 109 Performed By: #### L 100.0100 ####[facility] [address] [place], [address] White blood cell (WBC) count Ordered By: Renard Burgos on 09-24-2024 WBC (Bld) [#/Vol] 9.6 10*3/uL Normal 4.4-11.0 [facility] Comment on above: Order Comment: 109 Performed By: #### L 100.0100 ####[facility] [address] [place], [place], [id number] Absolute lymphocyte countOrd ered By: Renard Burgos on 09-16-2024 Lymphocytes Auto (Unsp spec) [#/Vol] 2.44 10*3/uL 0.83-4.51 [facility] Absolute neutrophil countOrd ered By: Renrad Burgos on 09-16-2024 Neutrophils (Bld) [#/Vol] 5.5 10*3/uL 2.0-7.7 [facility] Automated lymphocyte count a s percentage of total leukocytesOrdered By: Renard Burgos on 09-16-2024 Lymphocytes/100 WBC Auto (Unsp spec) 27.7 % 19-41 [facility] Basophil percentageOrdered B y: Renard Burgos on 09-16-2024 Basophils/100 WBC (Bld) 0.8 % 0-1 [facility] CBC W/Diff, Automatedon 08-29 Absolute Lymph 2.44 X10 3/uL Normal 0.83-4.51 [facility] Comment on above: Order Comment: 109.1 Performed By: #### L 100.0100 ####[facility] [address] [place], [address] Absolute Neut 5.5 X10 3/uL Normal 2.0-7.7 [facility] Comment on above: Order Comment: 109.1 Performed By: #### L 100.0100 ####[facility] [address] [place], [address] Basophils/100 WBC (Bld) 0.8 % Normal 0-1 [facility] Comment on above: Order Comment: 109.1 Performed By: #### L 100.0100 ####[facility] [address] [place], [address] Eosinophils/100 WBC (Bld) 0.7 % Normal 0-5 [facility] Comment on above: Order Comment: 109.1 Performed By: #### L 100.0100 ####[facility] [address] [place], [address] Erythrocyte distribution width (RBC) [Ratio] 13.1 % Normal 11.6-14.6 [facility] Comment on above: Order Comment: 109.1 Performed By: #### L 100.0100 ####[facility] [address] [place], [address] Hematocrit (Bld) [Volume fraction] 46.8 % Normal 40-54 [facility] Comment on above: Order Comment: 109.1 Performed By: #### L 100.0100 ####[facility] [address] [place], [address] Hemoglobin (Bld) [Mass/Vol] 15.4 g/dL Normal 13.0-16.5 [facility] Comment on above: Order Comment: 109.1 Performed By: #### L 100.0100 ####[facility] [address] [place], [address] IG% 0.200 Normal 0.0-0.9 [facility] Comment on above: Order Comment: 109.1 Result Comment: IG% - Immature Granulocytes (promyelocytes, myelocytes andmetamyelocytes) > 1% indicates that a LEFT SHIFT is Present. Performed By: #### L 100.0100 ####[facility] [address] [place], [address] Lymphocytes/100 WBC (Bld) 27.7 % Normal 19-41 [facility] Comment on above: Order Comment: 109.1 Performed By: #### L 100.0100 ####[facility] [address] [place], [address] MCH (RBC) [Entitic mass] 30.1 pg Normal 27.0-32.0 [facility] Comment on above: Order Comment: 109.1 Performed By: #### L 100.0100 ####[facility] [address] [place], [address] MCHC (RBC) [Mass/Vol] 32.9 g/dL Normal 32-36 [facility] Comment on above: Order Comment: 109.1 Performed By: #### L 100.0100 ####[facility] [address] [place], [address] MCV (RBC) [Entitic vol] 91.4 fL Normal 80-94 [facility] Comment on above: Order Comment: 109.1 Performed By: #### L 100.0100 ####[facility] [address] [place], [address] Monocytes/100 WBC (Bld) 8.5 % Normal 0-10 [facility] Comment on above: Order Comment: 109.1 Performed By: #### L 100.0100 ####[facility] [address] [place], [address] Neutrophils/100 WBC (Bld) 62.1 % Normal 47-70 [facility] Comment on above: Order Comment: 109.1 Performed By: #### L 100.0100 ####[facility] [address] [place], [address] Nucleated RBC (Bld) [#/Vol] 0 10*3/uL Normal 0-5 [facility] Comment on above: Order Comment: 109.1 Performed By: #### L 100.0100 ####[facility] [address] [place], [address] Platelet mean volume (Bld) [Entitic vol] 10.6 fL Normal 6.2-12.0 [facility] Comment on above: Order Comment: 109.1 Performed By: #### L 100.0100 ####[facility] [address] [place], [address] Platelets (Bld) [#/Vol] 190 10*3/uL Normal 150-450 [facility] Comment on above: Order Comment: 109.1 Performed By: #### L 100.0100 ####[facility] [address] [place], [address] RBC (Bld) [#/Vol] 5.12 10*6/uL Normal 4.6-6.2 [facility] Comment on above: Order Comment: 109.1 Performed By: #### L 100.0100 ####[facility] [address] [place], [address] RDW SD 43.3 fl Normal 35.1-43.9 [facility] Comment on above: Order Comment: 109.1 Performed By: #### L 100.0100 ####[facility] [address] [place], [place], [address] WBC (Bld) [#/Vol] 8.8 10*3/uL Normal 4.4-11.0 [facility] Comment on above: Order Comment: 109.1 Performed By: #### L 100.0100 ####[facility] [address] [place], [place], [address] Eosinophil percentageOrdered By: Renard Burgos on 09-16-2024 Eosinophils/100 WBC (Bld) 0.7 % 0-5 [facility] Erythrocyte distribution wid th ratioOrdered By: Renard Burgos on 09-16-2024 Erythrocyte distribution width (RBC) [Ratio] 13.1 % 11.6-14.6 [facility] Erythrocyte distribution wid th standard deviationOrdered By: Renard Burgos on 09-16-2024 Erythrocyte distribution width (RBC) [Ratio] 43.3 fl 35.1-43.9 [facility] Hematocrit Auto (Bld) [Volum e fraction]Ordered By: Renard Burgos on 09-16-2024 Hematocrit (Bld) [Volume fraction] 46.8 % 40-54 [facility] Hemoglobin measurementOrdere d By: Renard Burgos on 09-16-2024 Hemoglobin (Bld) [Mass/Vol] 15.4 g/dL 13.0-16.5 [facility] Immature granulocytes/100 WB C Auto (Bld)Ordered By: Renard Burgos on 09-16-2024 Immature granulocytes/100 WBC (Bld) 0.200 % 0.0-0.9 [facility] Comment on above: IG% - Immature Granu locytes (promyelocytes, myelocytes and metamyelocytes) > 1% indicates that a LEFT SHIFT is Present. MCV (mean corpuscular volume ) determinationOrdered By: Renard Burgos on 09-16-2024 MCV (RBC) [Entitic vol] 91.4 fL 80-94 [facility] Mean corpuscular hemoglobin (MCH) determinationOrdered By: Renard Burgos on 09-16-2024 MCH (RBC) [Entitic mass] 30.1 pg 27.0-32.0 [facility] Mean corpuscular hemoglobin concentration (MCHC) determinationOrdered By: Renard Burgos on 09-16-2024 MCHC (RBC) [Mass/Vol] 32.9 g/dL 32-36 [facility] Mean platelet volume determi nationOrdered By: Renard Burgos on 09-16-2024 Platelet mean volume (Bld) [Entitic vol] 10.6 fL 6.2-12.0 [facility] Monocyte percentageOrdered B y: Renard Burgos on 09-16-2024 Monocytes/100 WBC (Bld) 8.5 % 0-10 [facility] Neutrophil percentageOrdered By: Renard Burgos on 09-16-2024 Neutrophils/100 WBC (Bld) 62.1 % 47-70 [facility] Nucleated red blood cell per centageOrdered By: Renard Burgos on 09-16-2024 Nucleated RBC/100 WBC (Bld) [Ratio] 0 % 0-5 [facility] Platelet countOrdered By: Garrick Bhatt on 09-16-2024 Platelets (Bld) [#/Vol] 190 10*3/uL 150-450 [facility] RBC Auto (Bld) [#/Vol]Ordere d By: Renard Burgos on 09-16-2024 RBC (Bld) [#/Vol] 5.12 10*6/uL 4.6-6.2 [facility] White blood cell (WBC) count Ordered By: Renard Burgos on 09-16-2024 WBC (Bld) [#/Vol] 8.8 10*3/uL 4.4-11.0 [facility] Anion gap in Serum or Plasma Ordered By: Renard Burgos on 09-11-2024 Anion gap [Moles/Vol] 11 mmol/L 5-15 [facility] Automated blood erythrocyte countOrdered By: Renard Burgos on 09-11-2024 RBC (Bld) [#/Vol] 4.67 10*6/uL Normal 4.6-6.2 [facility] Comment on above: Order Comment: 109-1 Performed By: #### L 100.0500, L500.2500 ####[facility] [address] [place], [address] Automated blood hematocrit ( percentage)Ordered By: Renard Burgos on 09-11-2024 Hematocrit (Bld) [Volume fraction] 42.7 % Normal 40-54 [facility] Comment on above: Order Comment: 109-1 Performed By: #### L 100.0500, L500.2500 ####[facility] [address] [place], [address] BUN/creatinine ratioOrdered By: Renard Burgos on 09-11-2024 Urea nitrogen/Creatinine [Mass ratio] 23.0 mg/mg High [facility] Basic Metabolic Profile (BMP )on 09-11-2024 BUN/CRE 23.0 RATIO High [facility] Comment on above: Order Comment: 109-1 Performed By: #### L 100.0500, L500.2500 ####[facility] [address] [place], [address] Calcium [Mass/Vol] 8.7 mg/dL Normal 7.6-11.0 [facility] Comment on above: Order Comment: 109-1 Performed By: #### L 100.0500, L500.2500 ####[facility] [address] [place], [address] Chloride [Moles/Vol] 104 mmol/L Normal 98-108 [facility] Comment on above: Order Comment: 109-1 Performed By: #### L 100.0500, L500.2500 ####[facility] [address] [place], [address] CO2 [Moles/Vol] 25.9 mmol/L Normal 21.0-32.0 [facility] Comment on above: Order Comment: 109-1 Performed By: #### L 100.0500, L500.2500 ####[facility] [address] [place], [address] Creatinine [Mass/Vol] 0.58 mg/dL Low 0.70-1.20 [facility] Comment on above: Order Comment: 109-1 Performed By: #### L 100.0500, L500.2500 ####[facility] [address] [place], [address] GAP 11 Normal 5-15 [facility] Comment on above: Order Comment: 109-1 Performed By: #### L 100.0500, L500.2500 ####[facility] [address] [place], [address] GFR/1.73 sq M.predicted among non-blacks MDRD (S/P/Bld) [Vol rate/Area] 107 mL/min/{1.73_m2} Normal >60 [facility] Comment on above: Order Comment: 109- Result Comment: mL/m in/1.73m2 CKD-EPI Creatinine Equation (2020) Performed By: #### L 100.0500, L500.2500 ####[facility] [address] [place], [address] Glucose [Mass/Vol] 113 mg/dL High 70-99 [facility] Comment on above: Order Comment: 109-1 Performed By: #### L 100.0500, L500.2500 ####[facility] [address] [place], [address] Potassium [Moles/Vol] 3.8 mmol/L Normal 3.3-5.1 [facility] Comment on above: Order Comment: 109-1 Performed By: #### L 100.0500, L500.2500 ####[facility] [address] [place], [address] Sodium [Moles/Vol] 141 mmol/L Normal 133-145 [facility] Comment on above: Order Comment: 109-1 Performed By: #### L 100.0500, L500.2500 ####[facility] [address] [place], [address] Urea nitrogen [Mass/Vol] 13 mg/dL Normal 4-19 [facility] Comment on above: Order Comment: 109-1 Performed By: #### L 100.0500, L500.2500 ####[facility] [address] [place], [place], [address] CBC-Complete Blood Cnt No Di ffon 09-11-2024 RDW SD 43.7 fl Normal 35.1-43.9 [facility] Comment on above: Order Comment: 109-1 Performed By: #### L 100.0500, L500.2500 ####[facility] [address] [place], [address] Carbon dioxide, total [Moles /volume] in Central venous bloodOrdered By: Renard Burgos on 09-11-2024 CO2 [Moles/Vol] 25.9 mmol/L 21.0-32.0 [facility] Chloride assayOrdered By: Garrick Bhatt on 09-11-2024 Chloride [Moles/Vol] 104 mmol/L 98-108 [facility] Erythrocyte distribution wid th ratioOrdered By: Renard Burgos on 09-11-2024 Erythrocyte distribution width (RBC) [Ratio] 13.2 % Normal 11.6-14.6 [facility] Comment on above: Order Comment: 109-1 Performed By: #### L 100.0500, L500.2500 ####[facility] [address] [place], [address] Erythrocyte distribution wid th standard deviationOrdered By: Renard Burgos on 09-11-2024 Erythrocyte distribution width (RBC) [Ratio] 43.7 fl 35.1-43.9 [facility] Glomerular filtration rate ( GFR) estimation/1.73 sq m using serum, plasma, or whole bOrdered By: Renard Burgos on 09-11-2024 GFR/1.73 sq M.predicted among non-blacks MDRD (S/P/Bld) [Vol rate/Area] 107 mL/min/{1.73_m2} >60 [facility] Comment on above: mL/min/1.73m2 CKD-EP I Creatinine Equation (2020) Hemoglobin measurementOrdere d By: Renard Burgos on 09-11-2024 Hemoglobin (Bld) [Mass/Vol] 14.0 g/dL Normal 13.0-16.5 [facility] Comment on above: Order Comment: 109-1 Performed By: #### L 100.0500, L500.2500 ####[facility] [address] [place], [address] MCV (mean corpuscular volume ) determinationOrdered By: Renard Burgos on 09-11-2024 MCV (RBC) [Entitic vol] 91.4 fL Normal 80-94 [facility] Comment on above: Order Comment: 109-1 Performed By: #### L 100.0500, L500.2500 ####[facility] [address] [place], [address] Mean corpuscular hemoglobin (MCH) determinationOrdered By: Renard Burgos on 09-11-2024 MCH (RBC) [Entitic mass] 30.0 pg Normal 27.0-32.0 [facility] Comment on above: Order Comment: 109-1 Performed By: #### L 100.0500, L500.2500 ####[facility] [address] [place], [address] Mean corpuscular hemoglobin concentration (MCHC) determinationOrdered By: Renard Burgos on 09-11-2024 MCHC (RBC) [Mass/Vol] 32.8 g/dL Normal 32-36 [facility] Comment on above: Order Comment: 109-1 Performed By: #### L 100.0500, L500.2500 ####[facility] [address] [place], [address] Mean platelet volume determi nationOrdered By: Renard Burgos on 09-11-2024 Platelet mean volume (Bld) [Entitic vol] 11.3 fL Normal 6.2-12.0 [facility] Comment on above: Order Comment: 109-1 Performed By: #### L 100.0500, L500.2500 ####[facility] [address] [place], [place], [address] Platelet countOrdered By: Garrick Bhatt on 09-11-2024 Platelets (Bld) [#/Vol] 191 10*3/uL Normal 150-450 [facility] Comment on above: Order Comment: 109-1 Performed By: #### L 100.0500, L500.2500 ####[facility] [address] [place], [place], [address] Potassium measurement (mass/ volume)Ordered By: Renard Burgos on 09-11-2024 Potassium (Unsp spec) [Mass/Vol] 3.8 mmol/L 3.3-5.1 [facility] Serum creatinine measurement (mass/volume)Ordered By: Renard Burgos on 09-11-2024 Creatinine [Mass/Vol] 0.58 mg/dL Low 0.70-1.20 [facility] Serum glucose measurement (m ass/volume)Ordered By: Renard Burgos on 09-11-2024 Glucose [Mass/Vol] 113 mg/dL High 70-99 [facility] Serum or plasma calcium gordy urement (mass/volume)Ordered By: Renard Burgos on 09-11-2024 Calcium [Mass/Vol] 8.7 mg/dL 7.6-11.0 [facility] Serum or plasma urea nitroge n measurement (mass/volume)Ordered By: Renard Burgos on 09-11-2024 Urea nitrogen [Mass/Vol] 13 mg/dL 4-19 [facility] Sodium levelOrdered By: Lamine Burgos on 09-11-2024 Sodium [Moles/Vol] 141 mmol/L 133-145 [facility] White blood cell (WBC) count Ordered By: Renard Burgos on 09-11-2024 WBC (Bld) [#/Vol] 7.6 10*3/uL Normal 4.4-11.0 [facility] Comment on above: Order Comment: 109-1 Performed By: #### L 100.0500, L500.2500 ####[facility] [address] [place], [address] Absolute lymphocyte countOrd ered By: Renard Burgos on 09-09-2024 Lymphocytes Auto (Unsp spec) [#/Vol] 2.24 10*3/uL 0.83-4.51 [facility] Absolute neutrophil countOrd ered By: Renard Burgos on 09-09-2024 Neutrophils (Bld) [#/Vol] 8.7 10*3/uL High 2.0-7.7 [facility] Automated lymphocyte count a s percentage of total leukocytesOrdered By: Renard Burgos on 09-09-2024 Lymphocytes/100 WBC Auto (Unsp spec) 19.1 % 19-41 [facility] Basophil percentageOrdered B y: Renard Burgos on 09-09-2024 Basophils/100 WBC (Bld) 0.4 % 0-1 [facility] CBC W/Diff, Automatedon 08-29 Absolute Lymph 2.24 X10 3/uL Normal 0.83-4.51 [facility] Comment on above: Order Comment: 109-1 Performed By: #### L 100.0100 ####[facility] [address] [place], [address] Absolute Neut 8.7 X10 3/uL High 2.0-7.7 [facility] Comment on above: Order Comment: 109-1 Performed By: #### L 100.0100 ####[facility] [address] [place], [address] Basophils/100 WBC (Bld) 0.4 % Normal 0-1 [facility] Comment on above: Order Comment: 109-1 Performed By: #### L 100.0100 ####[facility] [address] [place], [address] Eosinophils/100 WBC (Bld) 0.5 % Normal 0-5 [facility] Comment on above: Order Comment: 109-1 Performed By: #### L 100.0100 ####[facility] [address] [place], [address] Erythrocyte distribution width (RBC) [Ratio] 13.0 % Normal 11.6-14.6 [facility] Comment on above: Order Comment: 109-1 Performed By: #### L 100.0100 ####[facility] [address] [place], [address] Hematocrit (Bld) [Volume fraction] 44.7 % Normal 40-54 [facility] Comment on above: Order Comment: 109-1 Performed By: #### L 100.0100 ####[facility] [address] [place], [address] Hemoglobin (Bld) [Mass/Vol] 14.6 g/dL Normal 13.0-16.5 [facility] Comment on above: Order Comment: 109-1 Performed By: #### L 100.0100 ####[facility] [address] [place], [address] IG% 0.300 Normal 0.0-0.9 [facility] Comment on above: Order Comment: 109-1 Result Comment: IG% - Immature Granulocytes (promyelocytes, myelocytes andmetamyelocytes) > 1% indicates that a LEFT SHIFT is Present. Performed By: #### L 100.0100 ####[facility] [address] [place], [address] Lymphocytes/100 WBC (Bld) 19.1 % Normal 19-41 [facility] Comment on above: Order Comment: 109-1 Performed By: #### L 100.0100 ####[facility] [address] [place], [address] MCH (RBC) [Entitic mass] 30.1 pg Normal 27.0-32.0 [facility] Comment on above: Order Comment: 109-1 Performed By: #### L 100.0100 ####[facility] [address] [place], [address] MCHC (RBC) [Mass/Vol] 32.7 g/dL Normal 32-36 [facility] Comment on above: Order Comment: 109-1 Performed By: #### L 100.0100 ####[facility] [address] [place], [address] MCV (RBC) [Entitic vol] 92.2 fL Normal 80-94 [facility] Comment on above: Order Comment: 109-1 Performed By: #### L 100.0100 ####[facility] [address] [place], [address] Monocytes/100 WBC (Bld) 5.1 % Normal 0-10 [facility] Comment on above: Order Comment: 109-1 Performed By: #### L 100.0100 ####[facility] [address] [place], [address] Neutrophils/100 WBC (Bld) 74.6 % High 47-70 [facility] Comment on above: Order Comment: 109-1 Performed By: #### L 100.0100 ####[facility] [address] [place], [address] Nucleated RBC (Bld) [#/Vol] 0 10*3/uL Normal 0-5 [facility] Comment on above: Order Comment: 109-1 Performed By: #### L 100.0100 ####[facility] [address] [place], [address] Platelet mean volume (Bld) [Entitic vol] 11.6 fL Normal 6.2-12.0 [facility] Comment on above: Order Comment: 109-1 Performed By: #### L 100.0100 ####[facility] [address] [place], [address] Platelets (Bld) [#/Vol] 189 10*3/uL Normal 150-450 [facility] Comment on above: Order Comment: 109-1 Performed By: #### L 100.0100 ####[facility] [address] [place], [address] RBC (Bld) [#/Vol] 4.85 10*6/uL Normal 4.6-6.2 [facility] Comment on above: Order Comment: 109-1 Performed By: #### L 100.0100 ####[facility] [address] [place], [address] RDW SD 43.8 fl Normal 35.1-43.9 [facility] Comment on above: Order Comment: 109-1 Performed By: #### L 100.0100 ####[facility] [address] [place], [address] WBC (Bld) [#/Vol] 11.7 10*3/uL High 4.4-11.0 [facility] Comment on above: Order Comment: 109-1 Performed By: #### L 100.0100 ####[facility] [address] [place], [address] Eosinophil percentageOrdered By: Renard Burgos on 09-09-2024 Eosinophils/100 WBC (Bld) 0.5 % 0-5 [facility] Erythrocyte distribution wid th ratioOrdered By: Renard Burgos on 09-09-2024 Erythrocyte distribution width (RBC) [Ratio] 13.0 % 11.6-14.6 [facility] Erythrocyte distribution wid th standard deviationOrdered By: Renard Burgos on 09-09-2024 Erythrocyte distribution width (RBC) [Ratio] 43.8 fl 35.1-43.9 [facility] Hematocrit Auto (Bld) [Volum e fraction]Ordered By: Renard Burgos on 09-09-2024 Hematocrit (Bld) [Volume fraction] 44.7 % 40-54 [facility] Hemoglobin measurementOrdere d By: Renard Burgos on 09-09-2024 Hemoglobin (Bld) [Mass/Vol] 14.6 g/dL 13.0-16.5 [facility] Immature granulocytes/100 WB C Auto (Bld)Ordered By: Renard Burgos on 09-09-2024 Immature granulocytes/100 WBC (Bld) 0.300 % 0.0-0.9 [facility] Comment on above: IG% - Immature Granu locytes (promyelocytes, myelocytes and metamyelocytes) > 1% indicates that a LEFT SHIFT is Present. MCV (mean corpuscular volume ) determinationOrdered By: Renard Burgos on 09-09-2024 MCV (RBC) [Entitic vol] 92.2 fL 80-94 [facility] Mean corpuscular hemoglobin (MCH) determinationOrdered By: Renard Burgos on 09-09-2024 MCH (RBC) [Entitic mass] 30.1 pg 27.0-32.0 [facility] Mean corpuscular hemoglobin concentration (MCHC) determinationOrdered By: Renard Burgos on 09-09-2024 MCHC (RBC) [Mass/Vol] 32.7 g/dL 32-36 [facility] Mean platelet volume determi nationOrdered By: Renard Burgos on 09-09-2024 Platelet mean volume (Bld) [Entitic vol] 11.6 fL 6.2-12.0 [facility] Monocyte percentageOrdered B y: Renard Burgos on 09-09-2024 Monocytes/100 WBC (Bld) 5.1 % 0-10 [facility] Neutrophil percentageOrdered By: Renard Burgos on 09-09-2024 Neutrophils/100 WBC (Bld) 74.6 % High 47-70 [facility] Nucleated red blood cell per centageOrdered By: Renard Burgos on 09-09-2024 Nucleated RBC/100 WBC (Bld) [Ratio] 0 % 0-5 [facility] Platelet countOrdered By: Garrick Bhatt on 09-09-2024 Platelets (Bld) [#/Vol] 189 10*3/uL 150-450 [facility] RBC Auto (Bld) [#/Vol]Ordere d By: Renard Burgos on 09-09-2024 RBC (Bld) [#/Vol] 4.85 10*6/uL 4.6-6.2 [facility] White blood cell (WBC) count Ordered By: Renard Burgos on 09-09-2024 WBC (Bld) [#/Vol] 11.7 10*3/uL High 4.4-11.0 [facility] Absolute lymphocyte countOrd ered By: Renard Burgos on 09-02-2024 Lymphocytes Auto (Unsp spec) [#/Vol] 2.07 10*3/uL 0.83-4.51 [facility] Absolute neutrophil countOrd ered By: Renard Burgos on 09-02-2024 Neutrophils (Bld) [#/Vol] 5.8 10*3/uL 2.0-7.7 [facility] Automated lymphocyte count a s percentage of total leukocytesOrdered By: Renard Burgos on 09-02-2024 Lymphocytes/100 WBC Auto (Unsp spec) 24.4 % 19-41 [facility] Basophil percentageOrdered B y: Renard Burgos on 09-02-2024 Basophils/100 WBC (Bld) 0.6 % 0-1 [facility] CBC W/Diff, Automatedon Absolute Lymph 2.07 X10 3/uL Normal 0.83-4.51 [facility] Comment on above: Order Comment: 109 Performed By: #### L 100.0100 ####[facility] [address] [facility] [place], [address] Absolute Neut 5.8 X10 3/uL Normal 2.0-7.7 [facility] Comment on above: Order Comment: 109 Performed By: #### L 100.0100 ####[facility] [address] [place], [address] Basophils/100 WBC (Bld) 0.6 % Normal 0-1 [facility] Comment on above: Order Comment: 109 Performed By: #### L 100.0100 ####[facility] [address] [place], [address] Eosinophils/100 WBC (Bld) 0.7 % Normal 0-5 [facility] Comment on above: Order Comment: 109 Performed By: #### L 100.0100 ####[facility] [address] [place], [address] Erythrocyte distribution width (RBC) [Ratio] 12.8 % Normal 11.6-14.6 [facility] Comment on above: Order Comment: 109 Performed By: #### L 100.0100 ####[facility] [address] [place], [address] Hematocrit (Bld) [Volume fraction] 44.5 % Normal 40-54 [facility] Comment on above: Order Comment: 109 Performed By: #### L 100.0100 ####[facility] [address] [place], [address] Hemoglobin (Bld) [Mass/Vol] 14.9 g/dL Normal 13.0-16.5 [facility] Comment on above: Order Comment: 109 Performed By: #### L 100.0100 ####[facility] [address] [place], [address] IG% 0.400 Normal 0.0-0.9 [facility] Comment on above: Order Comment: 109 Result Comment: IG% - Immature Granulocytes (promyelocytes, myelocytes andmetamyelocytes) > 1% indicates that a LEFT SHIFT is Present. Performed By: #### L 100.0100 ####[facility] [address] [place], [address] Lymphocytes/100 WBC (Bld) 24.4 % Normal 19-41 [facility] Comment on above: Order Comment: 109 Performed By: #### L 100.0100 ####[facility] [address], [address] MCH (RBC) [Entitic mass] 29.9 pg Normal 27.0-32.0 [facility] Comment on above: Order Comment: 109 Performed By: #### L 100.0100 ####[facility] [address], [address] MCHC (RBC) [Mass/Vol] 33.5 g/dL Normal 32-36 [facility] Comment on above: Order Comment: 109 Performed By: #### L 100.0100 ####[facility] [address] [place], [address] MCV (RBC) [Entitic vol] 89.4 fL Normal 80-94 [facility] Comment on above: Order Comment: 109 Performed By: #### L 100.0100 ####[facility] [address] [place], [address] Monocytes/100 WBC (Bld) 5.4 % Normal 0-10 [facility] Comment on above: Order Comment: 109 Performed By: #### L 100.0100 ####[facility] [address] [place], [address] Neutrophils/100 WBC (Bld) 68.5 % Normal 47-70 [facility] Comment on above: Order Comment: 109 Performed By: #### L 100.0100 ####[facility] [address] [place], [address] Nucleated RBC (Bld) [#/Vol] 0 10*3/uL Normal 0-5 [facility] Comment on above: Order Comment: 109 Performed By: #### L 100.0100 ####[facility] [address] [place], [address] Platelet mean volume (Bld) [Entitic vol] 10.7 fL Normal 6.2-12.0 [facility] Comment on above: Order Comment: 109 Performed By: #### L 100.0100 ####[facility] [address] [place], [address] Platelets (Bld) [#/Vol] 189 10*3/uL Normal 150-450 [facility] Comment on above: Order Comment: 109 Performed By: #### L 100.0100 ####[facility] [address] [place], [address] RBC (Bld) [#/Vol] 4.98 10*6/uL Normal 4.6-6.2 [facility] Comment on above: Order Comment: 109 Performed By: #### L 100.0100 ####[facility] [address] [place], [place], [id number] RDW SD 41.7 fl Normal 35.1-43.9 [facility] Comment on above: Order Comment: 109 Performed By: #### L 100.0100 ####[facility] [address] [place], [address] WBC (Bld) [#/Vol] 8.5 10*3/uL Normal 4.4-11.0 [facility] Comment on above: Order Comment: 109 Performed By: #### L 100.0100 ####[facility] [address] [place], [place], [phone] Eosinophil percentageOrdered By: Renard Burgos on 09-02-2024 Eosinophils/100 WBC (Bld) 0.7 % 0-5 [facility] Erythrocyte distribution wid th ratioOrdered By: Renard Burgos on 09-02-2024 Erythrocyte distribution width (RBC) [Ratio] 12.8 % 11.6-14.6 [facility] Erythrocyte distribution wid th standard deviationOrdered By: Reanrd Burgos on 09-02-2024 Erythrocyte distribution width (RBC) [Ratio] 41.7 fl 35.1-43.9 [facility] Hematocrit Auto (Bld) [Volum e fraction]Ordered By: Renard Burgos on 09-02-2024 Hematocrit (Bld) [Volume fraction] 44.5 % 40-54 [facility] Hemoglobin measurementOrdere d By: Renard Burgos on 09-02-2024 Hemoglobin (Bld) [Mass/Vol] 14.9 g/dL 13.0-16.5 [facility] Immature granulocytes/100 WB C Auto (Bld)Ordered By: Renard Burgos on 09-02-2024 Immature granulocytes/100 WBC (Bld) 0.400 % 0.0-0.9 [facility] Comment on above: IG% - Immature Granu locytes (promyelocytes, myelocytes and metamyelocytes) > 1% indicates that a LEFT SHIFT is Present. MCV (mean corpuscular volume ) determinationOrdered By: Renard Burgos on 09-02-2024 MCV (RBC) [Entitic vol] 89.4 fL 80-94 [facility] Mean corpuscular hemoglobin (MCH) determinationOrdered By: Renard Burgos on 09-02-2024 MCH (RBC) [Entitic mass] 29.9 pg 27.0-32.0 [facility] Mean corpuscular hemoglobin concentration (MCHC) determinationOrdered By: Renard Burgos on 09-02-2024 MCHC (RBC) [Mass/Vol] 33.5 g/dL 32-36 [facility] Mean platelet volume determi nationOrdered By: Renard Burgos on 09-02-2024 Platelet mean volume (Bld) [Entitic vol] 10.7 fL 6.2-12.0 [facility] Monocyte percentageOrdered B y: Renard Burgos on 09-02-2024 Monocytes/100 WBC (Bld) 5.4 % 0-10 [facility] Neutrophil percentageOrdered By: Renard Burgos on 09-02-2024 Neutrophils/100 WBC (Bld) 68.5 % 47-70 [facility] Nucleated red blood cell per centageOrdered By: Renard Burgos on 09-02-2024 Nucleated RBC/100 WBC (Bld) [Ratio] 0 % 0-5 [facility] Platelet countOrdered By: Garrick Bhatt on 09-02-2024 Platelets (Bld) [#/Vol] 189 10*3/uL 150-450 [facility] RBC Auto (Bld) [#/Vol]Ordere d By: Renard Burgos on 09-02-2024 RBC (Bld) [#/Vol] 4.98 10*6/uL 4.6-6.2 [facility] White blood cell (WBC) count Ordered By: Renard Burgos on 09-02-2024 WBC (Bld) [#/Vol] 8.5 10*3/uL 4.4-11.0 [facility] Absolute lymphocyte countOrd ered By: Renard Burgos on 08-26-2024 Lymphocytes Auto (Unsp spec) [#/Vol] 2.17 10*3/uL 0.83-4.51 [facility] Absolute neutrophil countOrd ered By: Renard Burgos on 08-26-2024 Neutrophils (Bld) [#/Vol] 5.7 10*3/uL 2.0-7.7 [facility] Automated lymphocyte count a s percentage of total leukocytesOrdered By: Renard Burgos on 08-26-2024 Lymphocytes/100 WBC Auto (Unsp spec) 25.1 % 19-41 [facility] Basophil percentageOrdered B y: Renard Burgos on 08-26-2024 Basophils/100 WBC (Bld) 0.6 % 0-1 [facility] CBC W/Diff, Automatedon 07-31 Absolute Lymph 2.17 X10 3/uL Normal 0.83-4.51 [facility] Comment on above: Order Comment: 109-1 Performed By: #### L 100.0100 ####[facility] [address] [place], [address] Absolute Neut 5.7 X10 3/uL Normal 2.0-7.7 [facility] Comment on above: Order Comment: 109-1 Performed By: #### L 100.0100 ####[facility] [address] [place], [address] Basophils/100 WBC (Bld) 0.6 % Normal 0-1 [facility] Comment on above: Order Comment: 109-1 Performed By: #### L 100.0100 ####[facility] [address] [place], [address] Eosinophils/100 WBC (Bld) 0.8 % Normal 0-5 [facility] Comment on above: Order Comment: 109-1 Performed By: #### L 100.0100 ####[facility] [address] [place], [address] Erythrocyte distribution width (RBC) [Ratio] 12.7 % Normal 11.6-14.6 [facility] Comment on above: Order Comment: 109-1 Performed By: #### L 100.0100 ####[facility] [address] [place], [address] Hematocrit (Bld) [Volume fraction] 41.8 % Normal 40-54 [facility] Comment on above: Order Comment: 109-1 Performed By: #### L 100.0100 ####[facility] [address] [place], [address] Hemoglobin (Bld) [Mass/Vol] 13.8 g/dL Normal 13.0-16.5 [facility] Comment on above: Order Comment: 109-1 Performed By: #### L 100.0100 ####[facility] [address], [address] IG% 0.200 Normal 0.0-0.9 [facility] Comment on above: Order Comment: 109-1 Result Comment: IG% - Immature Granulocytes (promyelocytes, myelocytes andmetamyelocytes) > 1% indicates that a LEFT SHIFT is Present. Performed By: #### L 100.0100 ####[facility] [address] [place], [address] Lymphocytes/100 WBC (Bld) 25.1 % Normal 19-41 [facility] Comment on above: Order Comment: 109-1 Performed By: #### L 100.0100 ####[facility] [address] [place], [address] MCH (RBC) [Entitic mass] 29.7 pg Normal 27.0-32.0 [facility] Comment on above: Order Comment: 109-1 Performed By: #### L 100.0100 ####[facility] [address] [place], [address] MCHC (RBC) [Mass/Vol] 33.0 g/dL Normal 32-36 [facility] Comment on above: Order Comment: 109-1 Performed By: #### L 100.0100 ####[facility] [address] [place], [address] MCV (RBC) [Entitic vol] 90.1 fL Normal 80-94 [facility] Comment on above: Order Comment: 109-1 Performed By: #### L 100.0100 ####[facility] [address] [place], [address] Monocytes/100 WBC (Bld) 7.4 % Normal 0-10 [facility] Comment on above: Order Comment: 109-1 Performed By: #### L 100.0100 ####[facility] [address] [place], [address] Neutrophils/100 WBC (Bld) 65.9 % Normal 47-70 [facility] Comment on above: Order Comment: 109-1 Performed By: #### L 100.0100 ####[facility] [address] [place], [address] Nucleated RBC (Bld) [#/Vol] 0 10*3/uL Normal 0-5 [facility] Comment on above: Order Comment: 109-1 Performed By: #### L 100.0100 ####[facility] [address] [place], [address] Platelet mean volume (Bld) [Entitic vol] 11.3 fL Normal 6.2-12.0 [facility] Comment on above: Order Comment: 109-1 Performed By: #### L 100.0100 ####[facility] [address] [place], [address] Platelets (Bld) [#/Vol] 196 10*3/uL Normal 150-450 [facility] Comment on above: Order Comment: 109-1 Performed By: #### L 100.0100 ####[facility] [address] [place], [address] RBC (Bld) [#/Vol] 4.64 10*6/uL Normal 4.6-6.2 [facility] Comment on above: Order Comment: 109-1 Performed By: #### L 100.0100 ####[facility] [address] [place], [address] RDW SD 41.3 fl Normal 35.1-43.9 [facility] Comment on above: Order Comment: 109-1 Performed By: #### L 100.0100 ####[facility] [address] [place], [address] WBC (Bld) [#/Vol] 8.6 10*3/uL Normal 4.4-11.0 [facility] Comment on above: Order Comment: 109-1 Performed By: #### L 100.0100 ####[facility] [address] [place], [address] Eosinophil percentageOrdered By: Renard Burgos on 08-26-2024 Eosinophils/100 WBC (Bld) 0.8 % 0-5 [facility] Erythrocyte distribution wid th ratioOrdered By: Renard Burgos on 08-26-2024 Erythrocyte distribution width (RBC) [Ratio] 12.7 % 11.6-14.6 [facility] Erythrocyte distribution wid th standard deviationOrdered By: Renard Burgos on 08-26-2024 Erythrocyte distribution width (RBC) [Ratio] 41.3 fl 35.1-43.9 [facility] Hematocrit Auto (Bld) [Volum e fraction]Ordered By: Renard Burgos on 08-26-2024 Hematocrit (Bld) [Volume fraction] 41.8 % 40-54 [facility] Hemoglobin measurementOrdere d By: Renard Burgos on 08-26-2024 Hemoglobin (Bld) [Mass/Vol] 13.8 g/dL 13.0-16.5 [facility] Immature granulocytes/100 WB C Auto (Bld)Ordered By: Renard Burgos on 08-26-2024 Immature granulocytes/100 WBC (Bld) 0.200 % 0.0-0.9 [facility] Comment on above: IG% - Immature Granu locytes (promyelocytes, myelocytes and metamyelocytes) > 1% indicates that a LEFT SHIFT is Present. MCV (mean corpuscular volume ) determinationOrdered By: Renard Burgos on 08-26-2024 MCV (RBC) [Entitic vol] 90.1 fL 80-94 [facility] Mean corpuscular hemoglobin (MCH) determinationOrdered By: Renard Burgos on 08-26-2024 MCH (RBC) [Entitic mass] 29.7 pg 27.0-32.0 [facility] Mean corpuscular hemoglobin concentration (MCHC) determinationOrdered By: Renard Burgos on 08-26-2024 MCHC (RBC) [Mass/Vol] 33.0 g/dL 32-36 [facility] Mean platelet volume determi nationOrdered By: Renard Burgos on 08-26-2024 Platelet mean volume (Bld) [Entitic vol] 11.3 fL 6.2-12.0 [facility] Monocyte percentageOrdered B y: Renard Burgos on 08-26-2024 Monocytes/100 WBC (Bld) 7.4 % 0-10 [facility] Neutrophil percentageOrdered By: Renard Burgos on 08-26-2024 Neutrophils/100 WBC (Bld) 65.9 % 47-70 [facility] Nucleated red blood cell per centageOrdered By: Renard Burgos on 08-26-2024 Nucleated RBC/100 WBC (Bld) [Ratio] 0 % 0-5 [facility] Platelet countOrdered By: Garrick Bhatt on 08-26-2024 Platelets (Bld) [#/Vol] 196 10*3/uL 150-450 [facility] RBC Auto (Bld) [#/Vol]Ordere d By: Renard Burgos on 08-26-2024 RBC (Bld) [#/Vol] 4.64 10*6/uL 4.6-6.2 [facility] White blood cell (WBC) count Ordered By: Renard Burgos on 08-26-2024 WBC (Bld) [#/Vol] 8.6 10*3/uL 4.4-11.0 [facility] Anion gap in Serum or Plasma Ordered By: Renard Burgos on 08-23-2024 Anion gap [Moles/Vol] 10 mmol/L 5-15 [facility] BUN/creatinine ratioOrdered By: Renard Burgos on 08-23-2024 Urea nitrogen/Creatinine [Mass ratio] 21.4 mg/mg High 10-20 [facility] Bilirubin, totalOrdered By: Renard Burgos on 08-23-2024 Bilirubin [Mass/Vol] 0.35 mg/dL 0.00-1.30 [facility] CBC-Complete Blood Cnt No Di ffon 08-23-2024 Erythrocyte distribution width (RBC) [Ratio] 12.7 % Normal 11.6-14.6 [facility] Comment on above: Order Comment: 109.1 Performed By: #### L 500.4100, L100.0500, L500.4050 ####[facility] [address] [place], [address] Hematocrit (Bld) [Volume fraction] 42.2 % Normal 40-54 [facility] Comment on above: Order Comment: 109.1 Performed By: #### L 500.4100, L100.0500, L500.4050 ####[facility] [address] [place], [address] Hemoglobin (Bld) [Mass/Vol] 14.0 g/dL Normal 13.0-16.5 [facility] Comment on above: Order Comment: 109.1 Performed By: #### L 500.4100, L100.0500, L500.4050 ####[facility] [address] [place], [address] MCH (RBC) [Entitic mass] 30.0 pg Normal 27.0-32.0 [facility] Comment on above: Order Comment: 109.1 Performed By: #### L 500.4100, L100.0500, L500.4050 ####[facility] [address] [place], [address] MCHC (RBC) [Mass/Vol] 33.2 g/dL Normal 32-36 [facility] Comment on above: Order Comment: 109.1 Performed By: #### L 500.4100, L100.0500, L500.4050 ####[facility] [address] [place], [address] MCV (RBC) [Entitic vol] 90.6 fL Normal 80-94 [facility] Comment on above: Order Comment: 109.1 Performed By: #### L 500.4100, L100.0500, L500.4050 ####[facility] [address] [place], [address] Platelet mean volume (Bld) [Entitic vol] 11.3 fL Normal 6.2-12.0 [facility] Comment on above: Order Comment: 109.1 Performed By: #### L 500.4100, L100.0500, L500.4050 ####[facility] [address] [place], [address] Platelets (Bld) [#/Vol] 184 10*3/uL Normal 150-450 [facility] Comment on above: Order Comment: 109.1 Performed By: #### L 500.4100, L100.0500, L500.4050 ####[facility] [address] [place], [address] RBC (Bld) [#/Vol] 4.66 10*6/uL Normal 4.6-6.2 [facility] Comment on above: Order Comment: 109.1 Performed By: #### L 500.4100, L100.0500, L500.4050 ####[facility] [address] [place], [address] RDW SD 41.8 fl Normal 35.1-43.9 [facility] Comment on above: Order Comment: 109.1 Performed By: #### L 500.4100, L100.0500, L500.4050 ####[facility] [address] [place], [address] WBC (Bld) [#/Vol] 8.6 10*3/uL Normal 4.4-11.0 [facility] Comment on above: Order Comment: 109.1 Performed By: #### L 500.4100, L100.0500, L500.4050 ####[facility] [address] [place], [address] Calculated very low density lipoprotein (VLDL) cholesterol measurementOrdered By: Renard Burgos on 08-23-2024 Calculated very low density lipoprotein (VLDL) cholesterol measurement 40 mg/dL 5-40 [facility] Carbon dioxide, total [Moles /volume] in Central venous bloodOrdered By: Renard Burgos on 08-23-2024 CO2 [Moles/Vol] 24.9 mmol/L 21.0-32.0 [facility] Chloride assayOrdered By: Garrick Bhatt on 08-23-2024 Chloride [Moles/Vol] 106 mmol/L 98-108 [facility] Comprehensive Metabolic Prof ilon 08-23-2024 Albumin [Mass/Vol] 3.4 g/dL Normal 3.4-4.8 [facility] Comment on above: Order Comment: 109.1 Performed By: #### L 500.4100, L100.0500, L500.4050 ####[facility] [address] [place], [address] Albumin/Globulin [Mass ratio] 1.4 {ratio} Normal 0.9-2.4 [facility] Comment on above: Order Comment: 109.1 Performed By: #### L 500.4100, L100.0500, L500.4050 ####[facility] [address] [place], [address] ALK PHOS 101 U/L Normal 40-129 [facility] Comment on above: Order Comment: 109.1 Performed By: #### L 500.4100, L100.0500, L500.4050 ####[facility] [address] [place], [address] ALT [Catalytic activity/Vol] 13 U/L Normal <=46 [facility] Comment on above: Order Comment: 109.1 Performed By: #### L 500.4100, L100.0500, L500.4050 ####[facility] [address] [place], [address] AST [Catalytic activity/Vol] 17 U/L Normal <=37 [facility] Comment on above: Order Comment: 109.1 Performed By: #### L 500.4100, L100.0500, L500.4050 ####[facility] [address] [place], [address] Bilirubin [Mass/Vol] 0.35 mg/dL Normal 0.00-1.30 [facility] Comment on above: Order Comment: 109.1 Performed By: #### L 500.4100, L100.0500, L500.4050 ####[facility] [address] [place], [address] BUN/CRE 21.4 RATIO High 10-20 [facility] Comment on above: Order Comment: 109.1 Performed By: #### L 500.4100, L100.0500, L500.4050 ####[facility] [address] [place], [address] Calcium [Mass/Vol] 8.2 mg/dL Normal 7.6-11.0 [facility] Comment on above: Order Comment: 109.1 Performed By: #### L 500.4100, L100.0500, L500.4050 ####[facility] [address] [place], [address] Chloride [Moles/Vol] 106 mmol/L Normal 98-108 [facility] Comment on above: Order Comment: 109.1 Performed By: #### L 500.4100, L100.0500, L500.4050 ####[facility] [address] [place], [address] CO2 [Moles/Vol] 24.9 mmol/L Normal 21.0-32.0 [facility] Comment on above: Order Comment: 109.1 Performed By: #### L 500.4100, L100.0500, L500.4050 ####[facility] [address] [place], [address] Creatinine [Mass/Vol] 0.63 mg/dL Low 0.70-1.20 [facility] Comment on above: Order Comment: 109.1 Performed By: #### L 500.4100, L100.0500, L500.4050 ####[facility] [address] [place], [address] GAP 10 Normal 5-15 [facility] Comment on above: Order Comment: 109.1 Performed By: #### L 500.4100, L100.0500, L500.4050 ####[facility] [address] [place], [address] GFR/1.73 sq M.predicted among non-blacks MDRD (S/P/Bld) [Vol rate/Area] 104 mL/min/{1.73_m2} Normal >60 [facility] Comment on above: Order Comment: 109.1 Result Comment: mL/m in/1.73m2 CKD-EPI Creatinine Equation (2020) Performed By: #### L 500.4100, L100.0500, L500.4050 ####[facility] [address] [place], [address] Globulin (S) [Mass/Vol] 2.3 g/dL Normal 2.2-4.2 [facility] Comment on above: Order Comment: 109.1 Performed By: #### L 500.4100, L100.0500, L500.4050 ####[facility] [address] [place], [address] Glucose [Mass/Vol] 116 mg/dL High 70-99 [facility] Comment on above: Order Comment: 109.1 Performed By: #### L 500.4100, L100.0500, L500.4050 ####[facility] [address] [place], [address] Potassium [Moles/Vol] 3.8 mmol/L Normal 3.3-5.1 [facility] Comment on above: Order Comment: 109.1 Performed By: #### L 500.4100, L100.0500, L500.4050 ####[facility] [address] [place], [address] Sodium [Moles/Vol] 141 mmol/L Normal 133-145 [facility] Comment on above: Order Comment: 109.1 Performed By: #### L 500.4100, L100.0500, L500.4050 ####[facility] [address] [place], [address] T PROT 5.7 g/dL Low 5.9-8.4 [facility] Comment on above: Order Comment: 109.1 Performed By: #### L 500.4100, L100.0500, L500.4050 ####[facility] [address] [place], [address] Urea nitrogen [Mass/Vol] 14 mg/dL Normal 4-19 [facility] Comment on above: Order Comment: 109.1 Performed By: #### L 500.4100, L100.0500, L500.4050 ####[facility] [address] [place], [address] Erythrocyte distribution wid th ratioOrdered By: Renard Burgos on 08-23-2024 Erythrocyte distribution width (RBC) [Ratio] 12.7 % 11.6-14.6 [facility] Erythrocyte distribution wid th standard deviationOrdered By: Renard Burgos on 08-23-2024 Erythrocyte distribution width (RBC) [Ratio] 41.8 fl 35.1-43.9 [facility] Glomerular filtration rate ( GFR) estimation/1.73 sq m using serum, plasma, or whole bOrdered By: Renard Burgos on 08-23-2024 GFR/1.73 sq M.predicted among non-blacks MDRD (S/P/Bld) [Vol rate/Area] 104 mL/min/{1.73_m2} >60 [facility] Comment on above: mL/min/1.73m2 CKD-EP I Creatinine Equation (2020) Hematocrit Auto (Bld) [Volum e fraction]Ordered By: Renard Burgos on 08-23-2024 Hematocrit (Bld) [Volume fraction] 42.2 % 40-54 [facility] Hemoglobin measurementOrdere d By: Renard Burgos on 08-23-2024 Hemoglobin (Bld) [Mass/Vol] 14.0 g/dL 13.0-16.5 [facility] LDL calc ser/plasOrdered By: Renard Burgos on 08-23-2024 Cholesterol in LDL [Mass/Vol] 62 mg/dL [facility] Comment on above: Zosoisfdby=192-502 m g/dL & Higher Ejap=616 mg/dL or greater Laboratory - Chemistry and C hemistry - challengeOrdered By: Renard Burgos on 08-23-2024 AST [Catalytic activity/Vol] 17 U/L <38 [facility] Lipid Profileon 08-23-2024 CHOL:HDL 5.32 Normal [facility] Comment on above: Order Comment: 109.1 Performed By: #### L 500.9988, L100.0500, L500.5260 ####[facility] [address] [place], [place], [address] Cholesterol [Mass/Vol] 125 mg/dL Normal <=200 [facility] Comment on above: Order Comment: 109.1 Result Comment: Chol esterol level, Desirable <200 mg/dLBorderline high cholesterol 200-239 mg/dLHigh cholesterol >=240 mg/dLRecommendations of the NCEP Adult Treatment Panel for thefollowing risk-cutoff thresholds for the [place] Americanpopulation. Performed By: #### L 500.4100, L100.0500, L500.4050 ####[facility] [address] [place], [address] Cholesterol in HDL [Mass/Vol] 24 mg/dL Low [facility] Comment on above: Order Comment: 109.1 Result Comment: Lucy onal Cholesterol Education Program (NCEP) guidelines:<40 mg/dL: Low HDL-cholesterol (major risk factor for CHD)>= 60 mg/dL: High HDL-cholesterol (negative risk factor forCHD)HDL-cholesterol is affected by a number of factors, e.g.smoking, exercise, hormones, sex and age. Performed By: #### L 500.4100, L100.0500, L500.4050 ####[facility] [address] [place], [address] Cholesterol in LDL [Mass/Vol] 62 mg/dL Normal [facility] Comment on above: Order Comment: 109.1 Result Comment: Bord zzgibb=477-035 mg/dL Higher Nnsn=674 mg/dL or greater Performed By: #### L 500.4100, L100.0500, L500.4050 ####[facility] [address] [place], [address] Cholesterol in VLDL [Mass/Vol] 40 mg/dL Normal 5-40 [facility] Comment on above: Order Comment: 109.1 Performed By: #### L 500.4100, L100.0500, L500.4050 ####[facility] [address] [place], [address] Triglyceride [Mass/Vol] 198 mg/dL Normal [facility] Comment on above: Order Comment: 109.1 Result Comment: The drugs N-Acetylcysteine and Metamizole may falselydepress this assay.Normal range: <150 mg/dLBorderline High: 150-199 mg/dLHigh: 200-499 mg/dLVery High: >500 mg/dL Performed By: #### L 500.4100, L100.0500, L500.4050 ####[facility] [address] [place], [address] MCV (mean corpuscular volume ) determinationOrdered By: Renard Burgos on 08-23-2024 MCV (RBC) [Entitic vol] 90.6 fL 80-94 [facility] Mean corpuscular hemoglobin (MCH) determinationOrdered By: Renard Burgos on 08-23-2024 MCH (RBC) [Entitic mass] 30.0 pg 27.0-32.0 [facility] Mean corpuscular hemoglobin concentration (MCHC) determinationOrdered By: Renard Burgos on 08-23-2024 MCHC (RBC) [Mass/Vol] 33.2 g/dL 32-36 [facility] Mean platelet volume determi nationOrdered By: Renard Burgos on 08-23-2024 Platelet mean volume (Bld) [Entitic vol] 11.3 fL 6.2-12.0 [facility] Platelet countOrdered By: Garrick Bhatt on 08-23-2024 Platelets (Bld) [#/Vol] 184 10*3/uL 150-450 [facility] Potassium measurement (mass/ volume)Ordered By: Renard Burgos on 08-23-2024 Potassium (Unsp spec) [Mass/Vol] 3.8 mmol/L 3.3-5.1 [facility] RBC Auto (Bld) [#/Vol]Ordere d By: Renard Burgos on 08-23-2024 RBC (Bld) [#/Vol] 4.66 10*6/uL 4.6-6.2 [facility] Screening total cholesterol/ high density lipoprotein (HDL) cholesterol ratioOrdered By: Renard Burgos on 08-23-2024 Cholesterol.total/Cecilia sterol in HDL [Mass ratio] 5.32 {ratio} [facility] Serum creatinine measurement (mass/volume)Ordered By: Renard Burgos on 08-23-2024 Creatinine [Mass/Vol] 0.63 mg/dL Low 0.70-1.20 [facility] Serum globulin measurementOr dered By: Renard Burgos on 08-23-2024 Globulin (S) [Mass/Vol] 2.3 g/dL 2.2-4.2 [facility] Serum glucose measurement (m ass/volume)Ordered By: Renard Burgos on 08-23-2024 Glucose [Mass/Vol] 116 mg/dL High 70-99 [facility] Serum or plasma alanine kay otransferase (ALT) measurementOrdered By: Renard Burgos on 08-23-2024 ALT [Catalytic activity/Vol] 13 U/L <47 [facility] Serum or plasma albumin gordy urement (mass/volume)Ordered By: Renard Burgos on 08-23-2024 Albumin [Mass/Vol] 3.4 g/dL 3.4-4.8 [facility] Serum or plasma albumin/glob ulin mass ratioOrdered By: Renard Burgos on 08-23-2024 Albumin/Globulin [Mass ratio] 1.4 {ratio} 0.9-2.4 [facility] Serum or plasma alkaline trace sphatase measurementOrdered By: Renard Burgos on 08-23-2024 ALP [Catalytic activity/Vol] 101 U/L 40-129 [facility] Serum or plasma calcium gordy urement (mass/volume)Ordered By: Renard Burgos on 08-23-2024 Calcium [Mass/Vol] 8.2 mg/dL 7.6-11.0 [facility] Serum or plasma cholesterol in HDL measurement (mass/volume)Ordered By: Renard Burgos on 08-23-2024 Cholesterol in HDL [Mass/Vol] 24 mg/dL Low >40 [facility] Comment on above: National Cholesterol Education Program (NCEP) guidelines:<40 mg/dL: Low HDL-cholesterol (major risk factor for CHD)>= 60 mg/dL: High HDL-cholesterol (negative risk factor for CHD)HDL-cholesterol is affected by a number of factors, e.g. smoking, exercise, hormones, sex and age. Serum or plasma cholesterol measurement (mass/volume)Ordered By: Renard Burgos on 08-23-2024 Cholesterol [Mass/Vol] 125 mg/dL <201 [facility] Comment on above: Cholesterol level, D esirable <200 mg/dLBorderline high cholesterol 200-239 mg/dLHigh cholesterol >=240 mg/dLRecommendations of the NCEP Adult Treatment Panel for the following risk-cutoff thresholds for the [place] population. Serum or plasma urea nitroge n measurement (mass/volume)Ordered By: Renard Burgos on 08-23-2024 Urea nitrogen [Mass/Vol] 14 mg/dL 4-19 [facility] Sodium levelOrdered By: Lamine Burgos on 08-23-2024 Sodium [Moles/Vol] 141 mmol/L 133-145 [facility] Total proteinOrdered By: Lyubov Burgos on 08-23-2024 Protein [Mass/Vol] 5.7 g/dL Low 5.9-8.4 [facility] Triglycerides measurementOrd ered By: Renard Burgos on 08-23-2024 Triglyceride [Mass/Vol] 198 mg/dL <199 [facility] Comment on above: The drugs N-Acetylcy steine and Metamizole may falsely depress this assay. Normal range: <150 mg/dLBorderline High: 150-199 mg/dLHigh: 200-499 mg/dLVery High: >500 mg/dL White blood cell (WBC) count Ordered By: Renard Burgos on 08-23-2024 WBC (Bld) [#/Vol] 8.6 10*3/uL 4.4-11.0 [facility] Absolute lymphocyte countOrd ered By: Renard Burgos on 08-19-2024 Lymphocytes Auto (Unsp spec) [#/Vol] 1.97 10*3/uL 0.83-4.51 [facility] Absolute neutrophil countOrd ered By: Renard Burgos on 08-19-2024 Neutrophils (Bld) [#/Vol] 5.0 10*3/uL 2.0-7.7 [facility] Automated lymphocyte count a s percentage of total leukocytesOrdered By: Renard Burgos on 08-19-2024 Lymphocytes/100 WBC Auto (Unsp spec) 25.4 % 19-41 [facility] Basophil percentageOrdered B y: Renard Burgos on 08-19-2024 Basophils/100 WBC (Bld) 0.5 % 0-1 [facility] CBC W/Diff, Automatedon 07-31 Absolute Lymph 1.97 X10 3/uL Normal 0.83-4.51 [facility] Comment on above: Order Comment: 109 Performed By: #### L 100.0100 ####[facility] [address] [place], [address] Absolute Neut 5.0 X10 3/uL Normal 2.0-7.7 [facility] Comment on above: Order Comment: 109 Performed By: #### L 100.0100 ####[facility] [address] [place], [address] Basophils/100 WBC (Bld) 0.5 % Normal 0-1 [facility] Comment on above: Order Comment: 109 Performed By: #### L 100.0100 ####[facility] [address] [place], [address] Eosinophils/100 WBC (Bld) 1.0 % Normal 0-5 [facility] Comment on above: Order Comment: 109 Performed By: #### L 100.0100 ####[facility] [address] [place], [address] Erythrocyte distribution width (RBC) [Ratio] 12.7 % Normal 11.6-14.6 [facility] Comment on above: Order Comment: 109 Performed By: #### L 100.0100 ####[facility] [address] [place], [address] Hematocrit (Bld) [Volume fraction] 41.0 % Normal 40-54 [facility] Comment on above: Order Comment: 109 Performed By: #### L 100.0100 ####[facility] [address] [place], [address] Hemoglobin (Bld) [Mass/Vol] 13.6 g/dL Normal 13.0-16.5 [facility] Comment on above: Order Comment: 109 Performed By: #### L 100.0100 ####[facility] [address] [place], [address] IG% 0.400 Normal 0.0-0.9 [facility] Comment on above: Order Comment: 109 Result Comment: IG% - Immature Granulocytes (promyelocytes, myelocytes andmetamyelocytes) > 1% indicates that a LEFT SHIFT is Present. Performed By: #### L 100.0100 ####[facility] [address] [place], [address] Lymphocytes/100 WBC (Bld) 25.4 % Normal 19-41 [facility] Comment on above: Order Comment: 109 Performed By: #### L 100.0100 ####[facility] [address] [place], [address] MCH (RBC) [Entitic mass] 30.2 pg Normal 27.0-32.0 [facility] Comment on above: Order Comment: 109 Performed By: #### L 100.0100 ####[facility] [address] [place], [address] MCHC (RBC) [Mass/Vol] 33.2 g/dL Normal 32-36 [facility] Comment on above: Order Comment: 109 Performed By: #### L 100.0100 ####[facility] [address] [place], [address] MCV (RBC) [Entitic vol] 91.1 fL Normal 80-94 [facility] Comment on above: Order Comment: 109 Performed By: #### L 100.0100 ####[facility] [address] [place], [address] Monocytes/100 WBC (Bld) 8.2 % Normal 0-10 [facility] Comment on above: Order Comment: 109 Performed By: #### L 100.0100 ####[facility] [address] [place], [address] Neutrophils/100 WBC (Bld) 64.5 % Normal 47-70 [facility] Comment on above: Order Comment: 109 Performed By: #### L 100.0100 ####[facility] [address] [place], [address] Nucleated RBC (Bld) [#/Vol] 0 10*3/uL Normal 0-5 [facility] Comment on above: Order Comment: 109 Performed By: #### L 100.0100 ####[facility] [address] [place], [address] Platelet mean volume (Bld) [Entitic vol] 11.1 fL Normal 6.2-12.0 [facility] Comment on above: Order Comment: 109 Performed By: #### L 100.0100 ####[facility] [address] [place], [address] Platelets (Bld) [#/Vol] 207 10*3/uL Normal 150-450 [facility] Comment on above: Order Comment: 109 Performed By: #### L 100.0100 ####[facility] [address] [place], [address] RBC (Bld) [#/Vol] 4.50 10*6/uL Low 4.6-6.2 [facility] Comment on above: Order Comment: 109 Performed By: #### L 100.0100 ####[facility] [address] [place], [address] RDW SD 42.0 fl Normal 35.1-43.9 [facility] Comment on above: Order Comment: 109 Performed By: #### L 100.0100 ####[facility] [address] [place], [address] WBC (Bld) [#/Vol] 7.8 10*3/uL Normal 4.4-11.0 [facility] Comment on above: Order Comment: 109 Performed By: #### L 100.0100 ####[facility] [address] [place], [address] Eosinophil percentageOrdered By: Renard Burgos on 08-19-2024 Eosinophils/100 WBC (Bld) 1.0 % 0-5 [facility] Erythrocyte distribution wid th ratioOrdered By: Renard Burgos on 08-19-2024 Erythrocyte distribution width (RBC) [Ratio] 12.7 % 11.6-14.6 [facility] Erythrocyte distribution wid th standard deviationOrdered By: Renard Burgos on 08-19-2024 Erythrocyte distribution width (RBC) [Ratio] 42.0 fl 35.1-43.9 [facility] Hematocrit Auto (Bld) [Volum e fraction]Ordered By: Renard Burgos on 08-19-2024 Hematocrit (Bld) [Volume fraction] 41.0 % 40-54 [facility] Hemoglobin measurementOrdere d By: Renard Burgos on 08-19-2024 Hemoglobin (Bld) [Mass/Vol] 13.6 g/dL 13.0-16.5 [facility] Immature granulocytes/100 WB C Auto (Bld)Ordered By: Renard Burgos on 08-19-2024 Immature granulocytes/100 WBC (Bld) 0.400 % 0.0-0.9 [facility] Comment on above: IG% - Immature Granu locytes (promyelocytes, myelocytes and metamyelocytes) > 1% indicates that a LEFT SHIFT is Present. MCV (mean corpuscular volume ) determinationOrdered By: Renrad Burgos on 08-19-2024 MCV (RBC) [Entitic vol] 91.1 fL 80-94 [facility] Mean corpuscular hemoglobin (MCH) determinationOrdered By: Renard Burgos on 08-19-2024 MCH (RBC) [Entitic mass] 30.2 pg 27.0-32.0 [facility] Mean corpuscular hemoglobin concentration (MCHC) determinationOrdered By: Renard Burgos on 08-19-2024 MCHC (RBC) [Mass/Vol] 33.2 g/dL 32-36 [facility] Mean platelet volume determi nationOrdered By: Renard Burgos on 08-19-2024 Platelet mean volume (Bld) [Entitic vol] 11.1 fL 6.2-12.0 [facility] Monocyte percentageOrdered B y: Renard Burgos on 08-19-2024 Monocytes/100 WBC (Bld) 8.2 % 0-10 [facility] Neutrophil percentageOrdered By: Renard Burgos on 08-19-2024 Neutrophils/100 WBC (Bld) 64.5 % 47-70 [facility] Nucleated red blood cell per centageOrdered By: Renard Burgos on 08-19-2024 Nucleated RBC/100 WBC (Bld) [Ratio] 0 % 0-5 [facility] Platelet countOrdered By: Garrick Bhatt on 08-19-2024 Platelets (Bld) [#/Vol] 207 10*3/uL 150-450 [facility] RBC Auto (Bld) [#/Vol]Ordere d By: Renard Burgos on 08-19-2024 RBC (Bld) [#/Vol] 4.50 10*6/uL Low 4.6-6.2 [facility] White blood cell (WBC) count Ordered By: Renard Burgos on 08-19-2024 WBC (Bld) [#/Vol] 7.8 10*3/uL 4.4-11.0 [facility] Absolute lymphocyte countOrd ered By: Renard Burgos on 08-12-2024 Lymphocytes Auto (Unsp spec) [#/Vol] 2.09 10*3/uL 0.83-4.51 [facility] Absolute neutrophil countOrd ered By: Renard Burgos on 08-12-2024 Neutrophils (Bld) [#/Vol] 5.0 10*3/uL 2.0-7.7 [facility] Automated lymphocyte count a s percentage of total leukocytesOrdered By: Renard Burgos on 08-12-2024 Lymphocytes/100 WBC Auto (Unsp spec) 27.0 % 19-41 [facility] Basophil percentageOrdered B y: Renard Burgos on 08-12-2024 Basophils/100 WBC (Bld) 0.5 % 0-1 [facility] CBC W/Diff, Automatedon 04- Absolute Lymph 2.09 X10 3/uL Normal 0.83-4.51 [facility] Comment on above: Order Comment: 109.1 Performed By: #### L 100.0100 ####[facility] [address], [address] Absolute Neut 5.0 X10 3/uL Normal 2.0-7.7 [facility] Comment on above: Order Comment: 109.1 Performed By: #### L 100.0100 ####[facility] [address] [place], [address] Basophils/100 WBC (Bld) 0.5 % Normal 0-1 [facility] Comment on above: Order Comment: 109.1 Performed By: #### L 100.0100 ####[facility] [address] [place], [address] Eosinophils/100 WBC (Bld) 0.9 % Normal 0-5 [facility] Comment on above: Order Comment: 109.1 Performed By: #### L 100.0100 ####[facility] [address] [place], [address] Erythrocyte distribution width (RBC) [Ratio] 12.7 % Normal 11.6-14.6 [facility] Comment on above: Order Comment: 109.1 Performed By: #### L 100.0100 ####[facility] [address] [place], [address] Hematocrit (Bld) [Volume fraction] 41.9 % Normal 40-54 [facility] Comment on above: Order Comment: 109.1 Performed By: #### L 100.0100 ####[facility] [address] [place], [address] Hemoglobin (Bld) [Mass/Vol] 14.1 g/dL Normal 13.0-16.5 [facility] Comment on above: Order Comment: 109.1 Performed By: #### L 100.0100 ####[facility] [address] [place], [address] IG% 0.300 Normal 0.0-0.9 [facility] Comment on above: Order Comment: 109.1 Result Comment: IG% - Immature Granulocytes (promyelocytes, myelocytes andmetamyelocytes) > 1% indicates that a LEFT SHIFT is Present. Performed By: #### L 100.0100 ####[facility] [address] [place], [address] Lymphocytes/100 WBC (Bld) 27.0 % Normal 19-41 [facility] Comment on above: Order Comment: 109.1 Performed By: #### L 100.0100 ####[facility] [address] [place], [address] MCH (RBC) [Entitic mass] 30.3 pg Normal 27.0-32.0 [facility] Comment on above: Order Comment: 109.1 Performed By: #### L 100.0100 ####[facility] [address] [place], [address] MCHC (RBC) [Mass/Vol] 33.7 g/dL Normal 32-36 [facility] Comment on above: Order Comment: 109.1 Performed By: #### L 100.0100 ####[facility] [address] [place], [address] MCV (RBC) [Entitic vol] 90.1 fL Normal 80-94 [facility] Comment on above: Order Comment: 109.1 Performed By: #### L 100.0100 ####[facility] [address] [place], [address] Monocytes/100 WBC (Bld) 7.1 % Normal 0-10 [facility] Comment on above: Order Comment: 109.1 Performed By: #### L 100.0100 ####[facility] [address], [address] Neutrophils/100 WBC (Bld) 64.2 % Normal 47-70 [facility] Comment on above: Order Comment: 109.1 Performed By: #### L 100.0100 ####[facility] [address] [place], [address] Nucleated RBC (Bld) [#/Vol] 0 10*3/uL Normal 0-5 [facility] Comment on above: Order Comment: 109.1 Performed By: #### L 100.0100 ####[facility] [address] [place], [address] Platelet mean volume (Bld) [Entitic vol] 11.2 fL Normal 6.2-12.0 [facility] Comment on above: Order Comment: 109.1 Performed By: #### L 100.0100 ####[facility] [address] [place], [address] Platelets (Bld) [#/Vol] 188 10*3/uL Normal 150-450 [facility] Comment on above: Order Comment: 109.1 Performed By: #### L 100.0100 ####[facility] [address] [place], [address] RBC (Bld) [#/Vol] 4.65 10*6/uL Normal 4.6-6.2 [facility] Comment on above: Order Comment: 109.1 Performed By: #### L 100.0100 ####[facility] [address] [place], [address] RDW SD 41.6 fl Normal 35.1-43.9 [facility] Comment on above: Order Comment: 109.1 Performed By: #### L 100.0100 ####[facility] [address] [place], [address] WBC (Bld) [#/Vol] 7.8 10*3/uL Normal 4.4-11.0 [facility] Comment on above: Order Comment: 109.1 Performed By: #### L 100.0100 ####[facility] [address] [place], [address] Eosinophil percentageOrdered By: Renard Burgos on 08-12-2024 Eosinophils/100 WBC (Bld) 0.9 % 0-5 [facility] Erythrocyte distribution wid th (RBC) [Ratio]Ordered By: Renard Burgos on 08-12-2024 Erythrocyte distribution width (RBC) [Entitic vol] 41.6 fL 35.1-43.9 [facility] Erythrocyte distribution wid th ratioOrdered By: Renard Burgos on 08-12-2024 Erythrocyte distribution width (RBC) [Ratio] 12.7 % 11.6-14.6 [facility] Erythrocyte distribution wid th standard deviationOrdered By: Renard Burgos on 08-12-2024 Erythrocyte distribution width (RBC) [Ratio] 41.6 fl 35.1-43.9 [facility] Hematocrit Auto (Bld) [Volum e fraction]Ordered By: Renard Burgos on 08-12-2024 Hematocrit (Bld) [Volume fraction] 41.9 % 40-54 [facility] Hemoglobin measurementOrdere d By: Renard Burgos on 08-12-2024 Hemoglobin (Bld) [Mass/Vol] 14.1 g/dL 13.0-16.5 [facility] Immature granulocytes/100 WB C Auto (Bld)Ordered By: Renard Burgos on 08-12-2024 Immature granulocytes/100 WBC (Bld) 0.300 % 0.0-0.9 [facility] Comment on above: IG% - Immature Granu locytes (promyelocytes, myelocytes and metamyelocytes) > 1% indicates that a LEFT SHIFT is Present. Lymphocytes Auto (Unsp spec) [#/Vol]Ordered By: Renard Burgos on 08-12-2024 Lymphocytes (Bld) [#/Vol] 2.09 10*3/uL 0.83-4.51 [facility] Lymphocytes/100 WBC Auto (Un sp spec)Ordered By: Renard Burgos on 08-12-2024 Lymphocytes/100 WBC (Bld) 27.0 % 19-41 [facility] MCV (mean corpuscular volume ) determinationOrdered By: Renard Burgos on 08-12-2024 MCV (RBC) [Entitic vol] 90.1 fL 80-94 [facility] Mean corpuscular hemoglobin (MCH) determinationOrdered By: Renard Burgos on 08-12-2024 MCH (RBC) [Entitic mass] 30.3 pg 27.0-32.0 [facility] Mean corpuscular hemoglobin concentration (MCHC) determinationOrdered By: Renard Burgos on 08-12-2024 MCHC (RBC) [Mass/Vol] 33.7 g/dL 32-36 [facility] Mean platelet volume determi nationOrdered By: Renard Burgos on 08-12-2024 Platelet mean volume (Bld) [Entitic vol] 11.2 fL 6.2-12.0 [facility] Monocyte percentageOrdered B y: Renard Burgos on 08-12-2024 Monocytes/100 WBC (Bld) 7.1 % 0-10 [facility] Neutrophil percentageOrdered By: Renard Burgos on 08-12-2024 Neutrophils/100 WBC (Bld) 64.2 % 47-70 [facility] Nucleated red blood cell per centageOrdered By: Renard Burgos on 08-12-2024 Nucleated RBC/100 WBC (Bld) [Ratio] 0 % 0-5 [facility] Platelet countOrdered By: Garrick Bhatt on 08-12-2024 Platelets (Bld) [#/Vol] 188 10*3/uL 150-450 [facility] RBC Auto (Bld) [#/Vol]Ordere d By: Renard Burgos on 08-12-2024 RBC (Bld) [#/Vol] 4.65 10*6/uL 4.6-6.2 [facility] White blood cell (WBC) count Ordered By: Renard Burgos on 08-12-2024 WBC (Bld) [#/Vol] 7.8 10*3/uL 4.4-11.0 [facility] Absolute lymphocyte countOrd ered By: Renard Burgos on 08-05-2024 Lymphocytes Auto (Unsp spec) [#/Vol] 2.31 10*3/uL 0.83-4.51 [facility] Absolute neutrophil countOrd ered By: Renard Hensleyrustam on 08-05-2024 Neutrophils (Bld) [#/Vol] 5.4 10*3/uL 2.0-7.7 [facility] Automated lymphocyte count a s percentage of total leukocytesOrdered By: Renard Burgos on 08-05-2024 Lymphocytes/100 WBC Auto (Unsp spec) 26.9 % 19-41 [facility] Basophil percentageOrdered B y: Renard Burgos on 08-05-2024 Basophils/100 WBC (Bld) 0.6 % 0-1 [facility] CBC W/Diff, Automatedon Absolute Lymph 2.31 X10 3/uL Normal 0.83-4.51 [facility] Comment on above: Order Comment: 109.1 Performed By: #### L 100.0100 ####[facility] [address] [place], [address] Absolute Neut 5.4 X10 3/uL Normal 2.0-7.7 [facility] Comment on above: Order Comment: 109.1 Performed By: #### L 100.0100 ####[facility] [address] [place], [address] Basophils/100 WBC (Bld) 0.6 % Normal 0-1 [facility] Comment on above: Order Comment: 109.1 Performed By: #### L 100.0100 ####[facility] [address] [place], [address] Eosinophils/100 WBC (Bld) 0.8 % Normal 0-5 [facility] Comment on above: Order Comment: 109.1 Performed By: #### L 100.0100 ####[facility] [address] [place], [address] Erythrocyte distribution width (RBC) [Ratio] 12.7 % Normal 11.6-14.6 [facility] Comment on above: Order Comment: 109.1 Performed By: #### L 100.0100 ####[facility] [address] [place], [address] Hematocrit (Bld) [Volume fraction] 41.6 % Normal 40-54 [facility] Comment on above: Order Comment: 109.1 Performed By: #### L 100.0100 ####[facility] [address] [place], [address] Hemoglobin (Bld) [Mass/Vol] 13.7 g/dL Normal 13.0-16.5 [facility] Comment on above: Order Comment: 109.1 Performed By: #### L 100.0100 ####[facility] [address] [place], [address] IG% 0.300 Normal 0.0-0.9 [facility] Comment on above: Order Comment: 109.1 Result Comment: IG% - Immature Granulocytes (promyelocytes, myelocytes andmetamyelocytes) > 1% indicates that a LEFT SHIFT is Present. Performed By: #### L 100.0100 ####[facility] [address] [place], [address] Lymphocytes/100 WBC (Bld) 26.9 % Normal 19-41 [facility] Comment on above: Order Comment: 109.1 Performed By: #### L 100.0100 ####[facility] [address] [place], [address] MCH (RBC) [Entitic mass] 30.1 pg Normal 27.0-32.0 [facility] Comment on above: Order Comment: 109.1 Performed By: #### L 100.0100 ####[facility] [address] [place], [address] MCHC (RBC) [Mass/Vol] 32.9 g/dL Normal 32-36 [facility] Comment on above: Order Comment: 109.1 Performed By: #### L 100.0100 ####[facility] [address] [place], [address] MCV (RBC) [Entitic vol] 91.4 fL Normal 80-94 [facility] Comment on above: Order Comment: 109.1 Performed By: #### L 100.0100 ####[facility] [address] [place], [address] Monocytes/100 WBC (Bld) 8.3 % Normal 0-10 [facility] Comment on above: Order Comment: 109.1 Performed By: #### L 100.0100 ####[facility] [address] [place], [address] Neutrophils/100 WBC (Bld) 63.1 % Normal 47-70 [facility] Comment on above: Order Comment: 109.1 Performed By: #### L 100.0100 ####[facility] [address] [place], [address] Nucleated RBC (Bld) [#/Vol] 0 10*3/uL Normal 0-5 [facility] Comment on above: Order Comment: 109.1 Performed By: #### L 100.0100 ####[facility] [address] [place], [address] Platelet mean volume (Bld) [Entitic vol] 11.1 fL Normal 6.2-12.0 [facility] Comment on above: Order Comment: 109.1 Performed By: #### L 100.0100 ####[facility] [address] [place], [address] Platelets (Bld) [#/Vol] 199 10*3/uL Normal 150-450 [facility] Comment on above: Order Comment: 109.1 Performed By: #### L 100.0100 ####[facility] [address] [place], [address] RBC (Bld) [#/Vol] 4.55 10*6/uL Low 4.6-6.2 [facility] Comment on above: Order Comment: 109.1 Performed By: #### L 100.0100 ####[facility] [address] [place], [address] RDW SD 42.5 fl Normal 35.1-43.9 [facility] Comment on above: Order Comment: 109.1 Performed By: #### L 100.0100 ####[facility] [address] [place], [address] WBC (Bld) [#/Vol] 8.6 10*3/uL Normal 4.4-11.0 [facility] Comment on above: Order Comment: 109.1 Performed By: #### L 100.0100 ####[facility] [address] [place], [address] Eosinophil percentageOrdered By: Renard Burgos on 08-05-2024 Eosinophils/100 WBC (Bld) 0.8 % 0-5 [facility] Erythrocyte distribution wid th (RBC) [Ratio]Ordered By: Renard Burgos on 08-05-2024 Erythrocyte distribution width (RBC) [Entitic vol] 42.5 fL 35.1-43.9 [facility] Erythrocyte distribution wid th ratioOrdered By: Renard Burgos on 08-05-2024 Erythrocyte distribution width (RBC) [Ratio] 12.7 % 11.6-14.6 [facility] Erythrocyte distribution wid th standard deviationOrdered By: Renard Burgos on 08-05-2024 Erythrocyte distribution width (RBC) [Ratio] 42.5 fl 35.1-43.9 [facility] Hematocrit Auto (Bld) [Volum e fraction]Ordered By: Renard Burgos on 08-05-2024 Hematocrit (Bld) [Volume fraction] 41.6 % 40-54 [facility] Hemoglobin measurementOrdere d By: Renard Burgos on 08-05-2024 Hemoglobin (Bld) [Mass/Vol] 13.7 g/dL 13.0-16.5 [facility] Immature granulocytes/100 WB C Auto (Bld)Ordered By: Renard Bugros on 08-05-2024 Immature granulocytes/100 WBC (Bld) 0.300 % 0.0-0.9 [facility] Comment on above: IG% - Immature Granu locytes (promyelocytes, myelocytes and metamyelocytes) > 1% indicates that a LEFT SHIFT is Present. Lymphocytes Auto (Unsp spec) [#/Vol]Ordered By: Renard Burgos on 08-05-2024 Lymphocytes (Bld) [#/Vol] 2.31 10*3/uL 0.83-4.51 [facility] Lymphocytes/100 WBC Auto (Un sp spec)Ordered By: Renard Burgos on 08-05-2024 Lymphocytes/100 WBC (Bld) 26.9 % 19-41 [facility] MCV (mean corpuscular volume ) determinationOrdered By: Renard Burgos on 08-05-2024 MCV (RBC) [Entitic vol] 91.4 fL 80-94 [facility] Mean corpuscular hemoglobin (MCH) determinationOrdered By: Renard Burgos on 08-05-2024 MCH (RBC) [Entitic mass] 30.1 pg 27.0-32.0 [facility] Mean corpuscular hemoglobin concentration (MCHC) determinationOrdered By: Renard Burgos on 08-05-2024 MCHC (RBC) [Mass/Vol] 32.9 g/dL 32-36 [facility] Mean platelet volume determi nationOrdered By: Renard Burgos on 08-05-2024 Platelet mean volume (Bld) [Entitic vol] 11.1 fL 6.2-12.0 [facility] Monocyte percentageOrdered B y: Renard Burgos on 08-05-2024 Monocytes/100 WBC (Bld) 8.3 % 0-10 W [facility] Neutrophil percentageOrdered By: Renard Burgos on 08-05-2024 Neutrophils/100 WBC (Bld) 63.1 % 47-70 [facility] Nucleated red blood cell per centageOrdered By: Renard Burgos on 08-05-2024 Nucleated RBC/100 WBC (Bld) [Ratio] 0 % 0-5 [facility] Platelet countOrdered By: Garrick Bhatt on 08-05-2024 Platelets (Bld) [#/Vol] 199 10*3/uL 150-450 [facility] RBC Auto (Bld) [#/Vol]Ordere d By: Renard Burgos on 08-05-2024 RBC (Bld) [#/Vol] 4.55 10*6/uL Low 4.6-6.2 [facility] White blood cell (WBC) count Ordered By: Renard Burgos on 08-05-2024 WBC (Bld) [#/Vol] 8.6 10*3/uL 4.4-11.0 [facility] Absolute lymphocyte countOrd ered By: Renard Burgos on 07-29-2024 Lymphocytes Auto (Unsp spec) [#/Vol] 1.93 10*3/uL 0.83-4.51 [facility] Absolute neutrophil countOrd ered By: Renard Burgos on 07-29-2024 Neutrophils (Bld) [#/Vol] 6.8 10*3/uL 2.0-7.7 [facility] Automated lymphocyte count a s percentage of total leukocytesOrdered By: Renard Burgos on 07-29-2024 Lymphocytes/100 WBC Auto (Unsp spec) 20.2 % 19-41 [facility] Basophil percentageOrdered B y: Renard Burgos on 07-29-2024 Basophils/100 WBC (Bld) 0.5 % 0-1 W [facility] CBC W/Diff, Automatedon 07-01 Absolute Lymph 1.93 X10 3/uL Normal 0.83-4.51 [facility] Comment on above: Order Comment: 109-1 Performed By: #### L 100.0100 ####[facility] [address] [place], [address] Absolute Neut 6.8 X10 3/uL Normal 2.0-7.7 [facility] Comment on above: Order Comment: 109-1 Performed By: #### L 100.0100 ####[facility] [address] [place], [address] Basophils/100 WBC (Bld) 0.5 % Normal 0-1 [facility] Comment on above: Order Comment: 109-1 Performed By: #### L 100.0100 ####[facility] [address] [place], [address] Eosinophils/100 WBC (Bld) 0.7 % Normal 0-5 [facility] Comment on above: Order Comment: 109-1 Performed By: #### L 100.0100 ####[facility] [address] [place], [address] Erythrocyte distribution width (RBC) [Ratio] 12.8 % Normal 11.6-14.6 [facility] Comment on above: Order Comment: 109-1 Performed By: #### L 100.0100 ####[facility] [address] [place], [address] Hematocrit (Bld) [Volume fraction] 40.7 % Normal 40-54 [facility] Comment on above: Order Comment: 109-1 Performed By: #### L 100.0100 ####[facility] [address] [place], [address] Hemoglobin (Bld) [Mass/Vol] 13.5 g/dL Normal 13.0-16.5 [facility] Comment on above: Order Comment: 109-1 Performed By: #### L 100.0100 ####[facility] [address] [place], [address] IG% 0.400 Normal 0.0-0.9 [facility] Comment on above: Order Comment: 109-1 Result Comment: IG% - Immature Granulocytes (promyelocytes, myelocytes andmetamyelocytes) > 1% indicates that a LEFT SHIFT is Present. Performed By: #### L 100.0100 ####[facility] [address] [place], [address] Lymphocytes/100 WBC (Bld) 20.2 % Normal 19-41 [facility] Comment on above: Order Comment: 109-1 Performed By: #### L 100.0100 ####[facility] [address] [place], [address] MCH (RBC) [Entitic mass] 29.9 pg Normal 27.0-32.0 [facility] Comment on above: Order Comment: 109-1 Performed By: #### L 100.0100 ####[facility] [address] [place], [address] MCHC (RBC) [Mass/Vol] 33.2 g/dL Normal 32-36 [facility] Comment on above: Order Comment: 109-1 Performed By: #### L 100.0100 ####[facility] [address] [place], [address] MCV (RBC) [Entitic vol] 90.0 fL Normal 80-94 [facility] Comment on above: Order Comment: 109-1 Performed By: #### L 100.0100 ####[facility] [address] [place], [address] Monocytes/100 WBC (Bld) 7.1 % Normal 0-10 [facility] Comment on above: Order Comment: 109-1 Performed By: #### L 100.0100 ####[facility] [address], [address] Neutrophils/100 WBC (Bld) 71.1 % High 47-70 [facility] Comment on above: Order Comment: 109-1 Performed By: #### L 100.0100 ####[facility] [address] [place], [address] Nucleated RBC (Bld) [#/Vol] 0 10*3/uL Normal 0-5 [facility] Comment on above: Order Comment: 109-1 Performed By: #### L 100.0100 ####[facility] [address] [place], [address] Platelet mean volume (Bld) [Entitic vol] 11.2 fL Normal 6.2-12.0 [facility] Comment on above: Order Comment: 109-1 Performed By: #### L 100.0100 ####[facility] [address] [place], [address] Platelets (Bld) [#/Vol] 218 10*3/uL Normal 150-450 [facility] Comment on above: Order Comment: 109-1 Performed By: #### L 100.0100 ####[facility] [address] [place], [address] RBC (Bld) [#/Vol] 4.52 10*6/uL Low 4.6-6.2 [facility] Comment on above: Order Comment: 109-1 Performed By: #### L 100.0100 ####[facility] [address] [place], [address] RDW SD 41.9 fl Normal 35.1-43.9 [facility] Comment on above: Order Comment: 109-1 Performed By: #### L 100.0100 ####[facility] [address] [place], [address] WBC (Bld) [#/Vol] 9.6 10*3/uL Normal 4.4-11.0 [facility] Comment on above: Order Comment: 109-1 Performed By: #### L 100.0100 ####[facility] [address] [place], [address] Eosinophil percentageOrdered By: Renard Burgos on 07-29-2024 Eosinophils/100 WBC (Bld) 0.7 % 0-5 [facility] Erythrocyte distribution wid th ratioOrdered By: Renard Burgos on 07-29-2024 Erythrocyte distribution width (RBC) [Ratio] 12.8 % 11.6-14.6 [facility] Erythrocyte distribution wid th standard deviationOrdered By: Renard Burgos on 07-29-2024 Erythrocyte distribution width (RBC) [Entitic vol] 41.9 fL 35.1-43.9 [facility] Erythrocyte distribution width (RBC) [Ratio] 41.9 fl 35.1-43.9 [facility] Hematocrit Auto (Bld) [Volum e fraction]Ordered By: Renard Burgos on 07-29-2024 Hematocrit (Bld) [Volume fraction] 40.7 % 40-54 [facility] Hemoglobin measurementOrdere d By: Renard Burgos on 07-29-2024 Hemoglobin (Bld) [Mass/Vol] 13.5 g/dL 13.0-16.5 [facility] Immature granulocytes/100 WB C Auto (Bld)Ordered By: Renard Burgos on 07-29-2024 Immature granulocytes/100 WBC (Bld) 0.400 % 0.0-0.9 [facility] Comment on above: IG% - Immature Granu locytes (promyelocytes, myelocytes and metamyelocytes) > 1% indicates that a LEFT SHIFT is Present. Lymphocytes Auto (Unsp spec) [#/Vol]Ordered By: Renard Burgos on 07-29-2024 Lymphocytes (Bld) [#/Vol] 1.93 10*3/uL 0.83-4.51 [facility] Lymphocytes/100 WBC Auto (Un sp spec)Ordered By: Renard Burgos on 07-29-2024 Lymphocytes/100 WBC (Bld) 20.2 % 19-41 [facility] MCV (mean corpuscular volume ) determinationOrdered By: Renard Burgos on 07-29-2024 MCV (RBC) [Entitic vol] 90.0 fL 80-94 [facility] Mean corpuscular hemoglobin (MCH) determinationOrdered By: Renard Bugros on 07-29-2024 MCH (RBC) [Entitic mass] 29.9 pg 27.0-32.0 [facility] Mean corpuscular hemoglobin concentration (MCHC) determinationOrdered By: Renard Burgos on 07-29-2024 MCHC (RBC) [Mass/Vol] 33.2 g/dL 32-36 [facility] Mean platelet volume determi nationOrdered By: Renard Burgos on 07-29-2024 Platelet mean volume (Bld) [Entitic vol] 11.2 fL 6.2-12.0 [facility] Monocyte percentageOrdered B y: Renard Burgos on 07-29-2024 Monocytes/100 WBC (Bld) 7.1 % 0-10 [facility] Neutrophil percentageOrdered By: Renard Burgos on 07-29-2024 Neutrophils/100 WBC (Bld) 71.1 % High 47-70 [facility] Nucleated red blood cell per centageOrdered By: Renard Burgos on 07-29-2024 Nucleated RBC/100 WBC (Bld) [Ratio] 0 % 0-5 [facility] Platelet countOrdered By: Garrick Bhatt on 07-29-2024 Platelets (Bld) [#/Vol] 218 10*3/uL 150-450 [facility] RBC Auto (Bld) [#/Vol]Ordere d By: Renard Burgos on 07-29-2024 RBC (Bld) [#/Vol] 4.52 10*6/uL Low 4.6-6.2 [facility] White blood cell (WBC) count Ordered By: Renard Burgos on 07-29-2024 WBC (Bld) [#/Vol] 9.6 10*3/uL 4.4-11.0 [facility] Absolute lymphocyte countOrd ered By: Renard Burgos on 07-22-2024 Lymphocytes Auto (Unsp spec) [#/Vol] 1.90 10*3/uL 0.83-4.51 [facility] Absolute neutrophil countOrd ered By: Renard Burgos on 07-22-2024 Neutrophils (Bld) [#/Vol] 5.2 10*3/uL 2.0-7.7 [facility] Automated lymphocyte count a s percentage of total leukocytesOrdered By: Renard Burgos on 07-22-2024 Lymphocytes/100 WBC Auto (Unsp spec) 23.9 % 19-41 [facility] Basophil percentageOrdered B y: Renard Burgos on 07-22-2024 Basophils/100 WBC (Bld) 0.6 % 0-1 [facility] CBC W/Diff, Automatedon 06-30 Absolute Lymph 1.90 X10 3/uL Normal 0.83-4.51 [facility] Comment on above: Order Comment: 109.1 Performed By: #### L 100.0100 ####[facility] [address] [place], [address] Absolute Neut 5.2 X10 3/uL Normal 2.0-7.7 [facility] Comment on above: Order Comment: 109.1 Performed By: #### L 100.0100 ####[facility] [address] [place], [address] Basophils/100 WBC (Bld) 0.6 % Normal 0-1 [facility] Comment on above: Order Comment: 109.1 Performed By: #### L 100.0100 ####[facility] [address] [place], [address] Eosinophils/100 WBC (Bld) 0.9 % Normal 0-5 [facility] Comment on above: Order Comment: 109.1 Performed By: #### L 100.0100 ####[facility] [address] [place], [address] Erythrocyte distribution width (RBC) [Ratio] 12.9 % Normal 11.6-14.6 [facility] Comment on above: Order Comment: 109.1 Performed By: #### L 100.0100 ####[facility] [address] [place], [address] Hematocrit (Bld) [Volume fraction] 41.4 % Normal 40-54 [facility] Comment on above: Order Comment: 109.1 Performed By: #### L 100.0100 ####[facility] [address] [place], [address] Hemoglobin (Bld) [Mass/Vol] 13.5 g/dL Normal 13.0-16.5 [facility] Comment on above: Order Comment: 109.1 Performed By: #### L 100.0100 ####[facility] [address] [place], [address] IG% 0.300 Normal 0.0-0.9 [facility] Comment on above: Order Comment: 109.1 Result Comment: IG% - Immature Granulocytes (promyelocytes, myelocytes andmetamyelocytes) > 1% indicates that a LEFT SHIFT is Present. Performed By: #### L 100.0100 ####[facility] [address] [place], [address] Lymphocytes/100 WBC (Bld) 23.9 % Normal 19-41 [facility] Comment on above: Order Comment: 109.1 Performed By: #### L 100.0100 ####[facility] [address] [place], [address] MCH (RBC) [Entitic mass] 29.8 pg Normal 27.0-32.0 [facility] Comment on above: Order Comment: 109.1 Performed By: #### L 100.0100 ####[facility] [address] [place], [address] MCHC (RBC) [Mass/Vol] 32.6 g/dL Normal 32-36 [facility] Comment on above: Order Comment: 109.1 Performed By: #### L 100.0100 ####[facility] [address] [place], [address] MCV (RBC) [Entitic vol] 91.4 fL Normal 80-94 [facility] Comment on above: Order Comment: 109.1 Performed By: #### L 100.0100 ####[facility] [address] [place], [address] Monocytes/100 WBC (Bld) 9.4 % Normal 0-10 [facility] Comment on above: Order Comment: 109.1 Performed By: #### L 100.0100 ####[facility] [address] [place], [address] Neutrophils/100 WBC (Bld) 64.9 % Normal 47-70 [facility] Comment on above: Order Comment: 109.1 Performed By: #### L 100.0100 ####[facility] [address] [place], [address] Nucleated RBC (Bld) [#/Vol] 0 10*3/uL Normal 0-5 [facility] Comment on above: Order Comment: 109.1 Performed By: #### L 100.0100 ####[facility] [address] [place], [address] Platelet mean volume (Bld) [Entitic vol] 11.5 fL Normal 6.2-12.0 [facility] Comment on above: Order Comment: 109.1 Performed By: #### L 100.0100 ####[facility] [address] [place], [address] Platelets (Bld) [#/Vol] 202 10*3/uL Normal 150-450 [facility] Comment on above: Order Comment: 109.1 Performed By: #### L 100.0100 ####[facility] [address] [place], [address] RBC (Bld) [#/Vol] 4.53 10*6/uL Low 4.6-6.2 [facility] Comment on above: Order Comment: 109.1 Performed By: #### L 100.0100 ####[facility] [address] [place], [address] RDW SD 42.7 fl Normal 35.1-43.9 [facility] Comment on above: Order Comment: 109.1 Performed By: #### L 100.0100 ####[facility] [address] [place], [address] WBC (Bld) [#/Vol] 8.0 10*3/uL Normal 4.4-11.0 [facility] Comment on above: Order Comment: 109.1 Performed By: #### L 100.0100 ####[facility] [address] [place], [address] Eosinophil percentageOrdered By: Renard Burgos on 07-22-2024 Eosinophils/100 WBC (Bld) 0.9 % 0-5 [facility] Erythrocyte distribution wid th ratioOrdered By: Renard Burgos on 07-22-2024 Erythrocyte distribution width (RBC) [Ratio] 12.9 % 11.6-14.6 [facility] Erythrocyte distribution wid th standard deviationOrdered By: Renard Burgos on 07-22-2024 Erythrocyte distribution width (RBC) [Entitic vol] 42.7 fL 35.1-43.9 [facility] Erythrocyte distribution width (RBC) [Ratio] 42.7 fl 35.1-43.9 [facility] Hematocrit Auto (Bld) [Volum e fraction]Ordered By: Renard Burgos on 07-22-2024 Hematocrit (Bld) [Volume fraction] 41.4 % 40-54 [facility] Hemoglobin measurementOrdere d By: Renard Burgos on 07-22-2024 Hemoglobin (Bld) [Mass/Vol] 13.5 g/dL 13.0-16.5 [facility] Immature granulocytes/100 WB C Auto (Bld)Ordered By: Renard Burgos on 07-22-2024 Immature granulocytes/100 WBC (Bld) 0.300 % 0.0-0.9 [facility] Comment on above: IG% - Immature Granu locytes (promyelocytes, myelocytes and metamyelocytes) > 1% indicates that a LEFT SHIFT is Present. Lymphocytes Auto (Unsp spec) [#/Vol]Ordered By: Renard Burgos on 07-22-2024 Lymphocytes (Bld) [#/Vol] 1.90 10*3/uL 0.83-4.51 [facility] Lymphocytes/100 WBC Auto (Un sp spec)Ordered By: Renard Burgos on 07-22-2024 Lymphocytes/100 WBC (Bld) 23.9 % 19-41 [facility] MCV (mean corpuscular volume ) determinationOrdered By: Renard Burgos on 07-22-2024 MCV (RBC) [Entitic vol] 91.4 fL 80-94 [facility] Mean corpuscular hemoglobin (MCH) determinationOrdered By: Renard Burgos on 07-22-2024 MCH (RBC) [Entitic mass] 29.8 pg 27.0-32.0 [facility] Mean corpuscular hemoglobin concentration (MCHC) determinationOrdered By: Renard Burgos on 07-22-2024 MCHC (RBC) [Mass/Vol] 32.6 g/dL 32-36 [facility] Mean platelet volume determi nationOrdered By: Renard Burgos on 07-22-2024 Platelet mean volume (Bld) [Entitic vol] 11.5 fL 6.2-12.0 [facility] Monocyte percentageOrdered B y: Renard Burgos on 07-22-2024 Monocytes/100 WBC (Bld) 9.4 % 0-10 [facility] Neutrophil percentageOrdered By: Renard Burgos on 07-22-2024 Neutrophils/100 WBC (Bld) 64.9 % 47-70 [facility] Nucleated red blood cell per centageOrdered By: Renard Burgos on 07-22-2024 Nucleated RBC/100 WBC (Bld) [Ratio] 0 % 0-5 [facility] Platelet countOrdered By: Garrick Bhatt on 07-22-2024 Platelets (Bld) [#/Vol] 202 10*3/uL 150-450 [facility] RBC Auto (Bld) [#/Vol]Ordere d By: Renard Burgos on 07-22-2024 RBC (Bld) [#/Vol] 4.53 10*6/uL Low 4.6-6.2 [facility] White blood cell (WBC) count Ordered By: Renard Burgos on 07-22-2024 WBC (Bld) [#/Vol] 8.0 10*3/uL 4.4-11.0 [facility] L506.1001on 07-16-2024 Vitamin D 25-OH 21.8 ng/mL Low 30-100 [facility] Comment on above: Order Comment: 109 Result Comment: Edilma min D StatusDeficiency: <20 ng/mL (50nmol/L)Insufficiency: 20-30 ng/mL (50-75 nmol/L)Sufficiency: 30-100 ng/mL (75-250 nmol/L)Toxicity: >100 ng/mL (>250 nmol/L) Performed By: #### L 506.1001 ####[facility] [address] [place], [address] Vitamin D, 25-hydroxyOrdered By: Renard Burgos on 07-16-2024 Vitamin D 25-Hydroxy 21.8 ng/mL Low 30-100 [facility] Comment on above: Vitamin D StatusDefi ciency: <20 ng/mL (50nmol/L)Insufficiency: 20-30 ng/mL (50-75 nmol/L)Sufficiency: 30-100 ng/mL (75-250 nmol/L)Toxicity: >100 ng/mL (>250 nmol/L) Absolute lymphocyte countOrd ered By: Renard Burgos on 07-15-2024 Lymphocytes Auto (Unsp spec) [#/Vol] 2.10 10*3/uL 0.83-4.51 [facility] Absolute neutrophil countOrd ered By: Renard Burgos on 07-15-2024 Neutrophils (Bld) [#/Vol] 6.9 10*3/uL 2.0-7.7 [facility] Automated lymphocyte count a s percentage of total leukocytesOrdered By: Renard Burgos on 07-15-2024 Lymphocytes/100 WBC Auto (Unsp spec) 21.0 % 19-41 [facility] Basophil percentageOrdered B y: Renard Burgos on 07-15-2024 Basophils/100 WBC (Bld) 0.5 % 0-1 [facility] CBC W/Diff, Automatedon 06-29 Absolute Lymph 2.10 X10 3/uL Normal 0.83-4.51 [facility] Comment on above: Order Comment: 109.1 Performed By: #### L 100.0100 ####[facility] [address] [place], [address] Absolute Neut 6.9 X10 3/uL Normal 2.0-7.7 [facility] Comment on above: Order Comment: 109.1 Performed By: #### L 100.0100 ####[facility] [address] [place], [address] Basophils/100 WBC (Bld) 0.5 % Normal 0-1 [facility] Comment on above: Order Comment: 109.1 Performed By: #### L 100.0100 ####[facility] [address] [place], [address] Eosinophils/100 WBC (Bld) 1.2 % Normal 0-5 [facility] Comment on above: Order Comment: 109.1 Performed By: #### L 100.0100 ####[facility] [address] [place], [address] Erythrocyte distribution width (RBC) [Ratio] 12.9 % Normal 11.6-14.6 [facility] Comment on above: Order Comment: 109.1 Performed By: #### L 100.0100 ####[facility] [address] [place], [address] Hematocrit (Bld) [Volume fraction] 41.0 % Normal 40-54 [facility] Comment on above: Order Comment: 109.1 Performed By: #### L 100.0100 ####[facility] [address] [place], [address] Hemoglobin (Bld) [Mass/Vol] 13.4 g/dL Normal 13.0-16.5 [facility] Comment on above: Order Comment: 109.1 Performed By: #### L 100.0100 ####[facility] [address] [place], [address] IG% 0.300 Normal 0.0-0.9 [facility] Comment on above: Order Comment: 109.1 Result Comment: IG% - Immature Granulocytes (promyelocytes, myelocytes andmetamyelocytes) > 1% indicates that a LEFT SHIFT is Present. Performed By: #### L 100.0100 ####[facility] [address] [place], [address] Lymphocytes/100 WBC (Bld) 21.0 % Normal 19-41 [facility] Comment on above: Order Comment: 109.1 Performed By: #### L 100.0100 ####[facility] [address] [place], [address] MCH (RBC) [Entitic mass] 29.7 pg Normal 27.0-32.0 [facility] Comment on above: Order Comment: 109.1 Performed By: #### L 100.0100 ####[facility] [address] [place], [address] MCHC (RBC) [Mass/Vol] 32.7 g/dL Normal 32-36 [facility] Comment on above: Order Comment: 109.1 Performed By: #### L 100.0100 ####[facility] [address] [place], [address] MCV (RBC) [Entitic vol] 90.9 fL Normal 80-94 [facility] Comment on above: Order Comment: 109.1 Performed By: #### L 100.0100 ####[facility] [address] [place], [address] Monocytes/100 WBC (Bld) 7.6 % Normal 0-10 [facility] Comment on above: Order Comment: 109.1 Performed By: #### L 100.0100 ####[facility] [address] [place], [address] Neutrophils/100 WBC (Bld) 69.4 % Normal 47-70 [facility] Comment on above: Order Comment: 109.1 Performed By: #### L 100.0100 ####[facility] [address] [place], [address] Nucleated RBC (Bld) [#/Vol] 0 10*3/uL Normal 0-5 [facility] Comment on above: Order Comment: 109.1 Performed By: #### L 100.0100 ####[facility] [address] [place], [address] Platelet mean volume (Bld) [Entitic vol] 11.4 fL Normal 6.2-12.0 [facility] Comment on above: Order Comment: 109.1 Performed By: #### L 100.0100 ####[facility] [address] [place], [address] Platelets (Bld) [#/Vol] 206 10*3/uL Normal 150-450 [facility] Comment on above: Order Comment: 109.1 Performed By: #### L 100.0100 ####[facility] [address] [place], [address] RBC (Bld) [#/Vol] 4.51 10*6/uL Low 4.6-6.2 [facility] Comment on above: Order Comment: 109.1 Performed By: #### L 100.0100 ####[facility] [address] [place], [address] RDW SD 42.3 fl Normal 35.1-43.9 [facility] Comment on above: Order Comment: 109.1 Performed By: #### L 100.0100 ####[facility] [address] [place], [address] WBC (Bld) [#/Vol] 10.0 10*3/uL Normal 4.4-11.0 [facility] Comment on above: Order Comment: 109.1 Performed By: #### L 100.0100 ####[facility] [address] [place], [address] Eosinophil percentageOrdered By: Renard Burgos on 07-15-2024 Eosinophils/100 WBC (Bld) 1.2 % 0-5 [facility] Erythrocyte distribution wid th ratioOrdered By: Renard Burgos on 07-15-2024 Erythrocyte distribution width (RBC) [Ratio] 12.9 % 11.6-14.6 [facility] Erythrocyte distribution wid th standard deviationOrdered By: Renard Burgos on 07-15-2024 Erythrocyte distribution width (RBC) [Entitic vol] 42.3 fL 35.1-43.9 [facility] Erythrocyte distribution width (RBC) [Ratio] 42.3 fl 35.1-43.9 [facility] Hematocrit Auto (Bld) [Volum e fraction]Ordered By: Renard Burgos on 07-15-2024 Hematocrit (Bld) [Volume fraction] 41.0 % 40-54 [facility] Hemoglobin measurementOrdere d By: Renard Burgos on 07-15-2024 Hemoglobin (Bld) [Mass/Vol] 13.4 g/dL 13.0-16.5 [facility] Immature granulocytes/100 WB C Auto (Bld)Ordered By: Renard Burgos on 07-15-2024 Immature granulocytes/100 WBC (Bld) 0.300 % 0.0-0.9 [facility] Comment on above: IG% - Immature Granu locytes (promyelocytes, myelocytes and metamyelocytes) > 1% indicates that a LEFT SHIFT is Present. Lymphocytes Auto (Unsp spec) [#/Vol]Ordered By: Renard Burgos on 07-15-2024 Lymphocytes (Bld) [#/Vol] 2.10 10*3/uL 0.83-4.51 [facility] Lymphocytes/100 WBC Auto (Un sp spec)Ordered By: Renard Burgos on 07-15-2024 Lymphocytes/100 WBC (Bld) 21.0 % 19-41 [facility] MCV (mean corpuscular volume ) determinationOrdered By: Renard Burgos on 07-15-2024 MCV (RBC) [Entitic vol] 90.9 fL 80-94 [facility] Mean corpuscular hemoglobin (MCH) determinationOrdered By: Renard Burgos on 07-15-2024 MCH (RBC) [Entitic mass] 29.7 pg 27.0-32.0 [facility] Mean corpuscular hemoglobin concentration (MCHC) determinationOrdered By: Renard Burgos on 07-15-2024 MCHC (RBC) [Mass/Vol] 32.7 g/dL 32-36 [facility] Mean platelet volume determi nationOrdered By: Renard Burgos on 07-15-2024 Platelet mean volume (Bld) [Entitic vol] 11.4 fL 6.2-12.0 [facility] Monocyte percentageOrdered B y: Renard Burgos on 07-15-2024 Monocytes/100 WBC (Bld) 7.6 % 0-10 [facility] Neutrophil percentageOrdered By: Renard Burgos on 07-15-2024 Neutrophils/100 WBC (Bld) 69.4 % 47-70 [facility] Nucleated red blood cell per centageOrdered By: Renard Burgos on 07-15-2024 Nucleated RBC/100 WBC (Bld) [Ratio] 0 % 0-5 [facility] Platelet countOrdered By: Garrick Bhatt on 07-15-2024 Platelets (Bld) [#/Vol] 206 10*3/uL 150-450 [facility] RBC Auto (Bld) [#/Vol]Ordere d By: Renard Burgos on 07-15-2024 RBC (Bld) [#/Vol] 4.51 10*6/uL Low 4.6-6.2 [facility] White blood cell (WBC) count Ordered By: Renard Burgos on 07-15-2024 WBC (Bld) [#/Vol] 10.0 10*3/uL 4.4-11.0 [facility] Absolute lymphocyte countOrd ered By: Renard Burgos on 07-08-2024 Lymphocytes Auto (Unsp spec) [#/Vol] 2.02 10*3/uL 0.83-4.51 [facility] Absolute neutrophil countOrd ered By: Renard Burgos on 07-08-2024 Neutrophils (Bld) [#/Vol] 7.2 10*3/uL 2.0-7.7 [facility] Automated lymphocyte count a s percentage of total leukocytesOrdered By: Renard Burgos on 07-08-2024 Lymphocytes/100 WBC Auto (Unsp spec) 19.7 % 19-41 [facility] Basophil percentageOrdered B y: Renard Burgos on 07-08-2024 Basophils/100 WBC (Bld) 0.6 % 0-1 [facility] CBC W/Diff, Automatedon 03-1 0-5 Absolute Lymph 2.02 X10 3/uL Normal 0.83-4.51 [facility] Comment on above: Order Comment: 109-1 Performed By: #### L 100.0100 ####[facility] [address] [place], [address] Absolute Neut 7.2 X10 3/uL Normal 2.0-7.7 [facility] Comment on above: Order Comment: 109-1 Performed By: #### L 100.0100 ####[facility] [address] [place], [address] Basophils/100 WBC (Bld) 0.6 % Normal 0-1 [facility] Comment on above: Order Comment: 109-1 Performed By: #### L 100.0100 ####[facility] [address] [place], [address] Eosinophils/100 WBC (Bld) 1.5 % Normal 0-5 [facility] Comment on above: Order Comment: 109-1 Performed By: #### L 100.0100 ####[facility] [address] [place], [address] Erythrocyte distribution width (RBC) [Ratio] 12.9 % Normal 11.6-14.6 [facility] Comment on above: Order Comment: 109-1 Performed By: #### L 100.0100 ####[facility] [address] [place], [address] Hematocrit (Bld) [Volume fraction] 40.6 % Normal 40-54 [facility] Comment on above: Order Comment: 109-1 Performed By: #### L 100.0100 ####[facility] [address] [place], [address] Hemoglobin (Bld) [Mass/Vol] 13.6 g/dL Normal 13.0-16.5 [facility] Comment on above: Order Comment: 109-1 Performed By: #### L 100.0100 ####[facility] [address] [place], [address] IG% 0.500 Normal 0.0-0.9 [facility] Comment on above: Order Comment: 109-1 Result Comment: IG% - Immature Granulocytes (promyelocytes, myelocytes andmetamyelocytes) > 1% indicates that a LEFT SHIFT is Present. Performed By: #### L 100.0100 ####[facility] [address] [place], [address] Lymphocytes/100 WBC (Bld) 19.7 % Normal 19-41 [facility] Comment on above: Order Comment: 109-1 Performed By: #### L 100.0100 ####[facility] [address] [place], [address] MCH (RBC) [Entitic mass] 30.5 pg Normal 27.0-32.0 [facility] Comment on above: Order Comment: 109-1 Performed By: #### L 100.0100 ####[facility] [address] [place], [address] MCHC (RBC) [Mass/Vol] 33.5 g/dL Normal 32-36 [facility] Comment on above: Order Comment: 109-1 Performed By: #### L 100.0100 ####[facility] [address] [place], [address] MCV (RBC) [Entitic vol] 91.0 fL Normal 80-94 [facility] Comment on above: Order Comment: 109-1 Performed By: #### L 100.0100 ####[facility] [address] [place], [address] Monocytes/100 WBC (Bld) 7.4 % Normal 0-10 [facility] Comment on above: Order Comment: 109-1 Performed By: #### L 100.0100 ####[facility] [address] [place], [address] Neutrophils/100 WBC (Bld) 70.3 % High 47-70 [facility] Comment on above: Order Comment: 109-1 Performed By: #### L 100.0100 ####[facility] [address] [place], [address] Nucleated RBC (Bld) [#/Vol] 0 10*3/uL Normal 0-5 [facility] Comment on above: Order Comment: 109-1 Performed By: #### L 100.0100 ####[facility] [address], [address] Platelet mean volume (Bld) [Entitic vol] 11.1 fL Normal 6.2-12.0 [facility] Comment on above: Order Comment: 109-1 Performed By: #### L 100.0100 ####[facility] [address] [place], [address] Platelets (Bld) [#/Vol] 207 10*3/uL Normal 150-450 [facility] Comment on above: Order Comment: 109-1 Performed By: #### L 100.0100 ####[facility] [address] [place], [address] RBC (Bld) [#/Vol] 4.46 10*6/uL Low 4.6-6.2 [facility] Comment on above: Order Comment: 109-1 Performed By: #### L 100.0100 ####[facility] [address] [place], [address] RDW SD 42.5 fl Normal 35.1-43.9 [facility] Comment on above: Order Comment: 109-1 Performed By: #### L 100.0100 ####[facility] [address] [place], [address] WBC (Bld) [#/Vol] 10.3 10*3/uL Normal 4.4-11.0 [facility] Comment on above: Order Comment: 109-1 Performed By: #### L 100.0100 ####[facility] [address] [place], [address] Eosinophil percentageOrdered By: Renard Burgos on 07-08-2024 Eosinophils/100 WBC (Bld) 1.5 % 0-5 [facility] Erythrocyte distribution wid th ratioOrdered By: Renard Burgos on 07-08-2024 Erythrocyte distribution width (RBC) [Ratio] 12.9 % 11.6-14.6 [facility] Erythrocyte distribution wid th standard deviationOrdered By: Renard Burgos on 07-08-2024 Erythrocyte distribution width (RBC) [Entitic vol] 42.5 fL 35.1-43.9 [facility] Erythrocyte distribution width (RBC) [Ratio] 42.5 fl 35.1-43.9 [facility] Hematocrit Auto (Bld) [Volum e fraction]Ordered By: Renard Burgos on 07-08-2024 Hematocrit (Bld) [Volume fraction] 40.6 % 40-54 [facility] Hemoglobin measurementOrdere d By: Renard Burgos on 07-08-2024 Hemoglobin (Bld) [Mass/Vol] 13.6 g/dL 13.0-16.5 [facility] Immature granulocytes/100 WB C Auto (Bld)Ordered By: Renard Burgos on 07-08-2024 Immature granulocytes/100 WBC (Bld) 0.500 % 0.0-0.9 [facility] Comment on above: IG% - Immature Granu locytes (promyelocytes, myelocytes and metamyelocytes) > 1% indicates that a LEFT SHIFT is Present. Lymphocytes Auto (Unsp spec) [#/Vol]Ordered By: Renard Burgos on 07-08-2024 Lymphocytes (Bld) [#/Vol] 2.02 10*3/uL 0.83-4.51 [facility] Lymphocytes/100 WBC Auto (Un sp spec)Ordered By: Renard Burgos on 07-08-2024 Lymphocytes/100 WBC (Bld) 19.7 % 19-41 [facility] MCV (mean corpuscular volume ) determinationOrdered By: Renard Burgos on 07-08-2024 MCV (RBC) [Entitic vol] 91.0 fL 80-94 [facility] Mean corpuscular hemoglobin (MCH) determinationOrdered By: Renard Burgos on 07-08-2024 MCH (RBC) [Entitic mass] 30.5 pg 27.0-32.0 [facility] Mean corpuscular hemoglobin concentration (MCHC) determinationOrdered By: Renard Burgos on 07-08-2024 MCHC (RBC) [Mass/Vol] 33.5 g/dL 32-36 [facility] Mean platelet volume determi nationOrdered By: Renard Burgos on 07-08-2024 Platelet mean volume (Bld) [Entitic vol] 11.1 fL 6.2-12.0 [facility] Monocyte percentageOrdered B y: Renard Burgos on 07-08-2024 Monocytes/100 WBC (Bld) 7.4 % 0-10 [facility] Neutrophil percentageOrdered By: Renard Burgos on 07-08-2024 Neutrophils/100 WBC (Bld) 70.3 % High 47-70 [facility] Nucleated red blood cell per centageOrdered By: Renard Burgos on 07-08-2024 Nucleated RBC/100 WBC (Bld) [Ratio] 0 % 0-5 [facility] Platelet countOrdered By: Garrick Bhatt on 07-08-2024 Platelets (Bld) [#/Vol] 207 10*3/uL 150-450 [facility] RBC Auto (Bld) [#/Vol]Ordere d By: Renard Burgos on 07-08-2024 RBC (Bld) [#/Vol] 4.46 10*6/uL Low 4.6-6.2 [facility] White blood cell (WBC) count Ordered By: Renard Burgos on 07-08-2024 WBC (Bld) [#/Vol] 10.3 10*3/uL 4.4-11.0 [facility] Absolute lymphocyte countOrd ered By: Renard Burgos on 07-01-2024 Lymphocytes Auto (Unsp spec) [#/Vol] 2.03 10*3/uL 0.83-4.51 [facility] Absolute neutrophil countOrd ered By: Renard Burgos on 07-01-2024 Neutrophils (Bld) [#/Vol] 7.0 10*3/uL 2.0-7.7 [facility] Automated lymphocyte count a s percentage of total leukocytesOrdered By: Renard Burgos on 07-01-2024 Lymphocytes/100 WBC Auto (Unsp spec) 20.3 % 19-41 [facility] Basophil percentageOrdered B y: Renard Burgos on 07-01-2024 Basophils/100 WBC (Bld) 0.6 % 0-1 [facility] CBC W/Diff, Automatedon Absolute Lymph 2.03 X10 3/uL Normal 0.83-4.51 [facility] Comment on above: Order Comment: 109 Performed By: #### L 100.0100 ####[facility] [address] [place], [address] Absolute Neut 7.0 X10 3/uL Normal 2.0-7.7 [facility] Comment on above: Order Comment: 109 Performed By: #### L 100.0100 ####[facility] [address] [place], [address] Basophils/100 WBC (Bld) 0.6 % Normal 0-1 [facility] Comment on above: Order Comment: 109 Performed By: #### L 100.0100 ####[facility] [address] [place], [address] Eosinophils/100 WBC (Bld) 1.3 % Normal 0-5 [facility] Comment on above: Order Comment: 109 Performed By: #### L 100.0100 ####[facility] [address] [place], [address] Erythrocyte distribution width (RBC) [Ratio] 13.1 % Normal 11.6-14.6 [facility] Comment on above: Order Comment: 109 Performed By: #### L 100.0100 ####[facility] [address] [place], [address] Hematocrit (Bld) [Volume fraction] 41.7 % Normal 40-54 [facility] Comment on above: Order Comment: 109 Performed By: #### L 100.0100 ####[facility] [address] [place], [address] Hemoglobin (Bld) [Mass/Vol] 13.6 g/dL Normal 13.0-16.5 [facility] Comment on above: Order Comment: 109 Performed By: #### L 100.0100 ####[facility] [address] [place], [address] IG% 0.500 Normal 0.0-0.9 [facility] Comment on above: Order Comment: 109 Result Comment: IG% - Immature Granulocytes (promyelocytes, myelocytes andmetamyelocytes) > 1% indicates that a LEFT SHIFT is Present. Performed By: #### L 100.0100 ####[facility] [address] [place], [address] Lymphocytes/100 WBC (Bld) 20.3 % Normal 19-41 [facility] Comment on above: Order Comment: 109 Performed By: #### L 100.0100 ####[facility] [address] [place], [address] MCH (RBC) [Entitic mass] 29.6 pg Normal 27.0-32.0 [facility] Comment on above: Order Comment: 109 Performed By: #### L 100.0100 ####[facility] [address] [place], [address] MCHC (RBC) [Mass/Vol] 32.6 g/dL Normal 32-36 [facility] Comment on above: Order Comment: 109 Performed By: #### L 100.0100 ####[facility] [address] [place], [address] MCV (RBC) [Entitic vol] 90.8 fL Normal 80-94 W [facility] Comment on above: Order Comment: 109 Performed By: #### L 100.0100 ####[facility] [address] [place], [address] Monocytes/100 WBC (Bld) 6.8 % Normal 0-10 W [facility] Comment on above: Order Comment: 109 Performed By: #### L 100.0100 ####[facility] [address] [place], [address] Neutrophils/100 WBC (Bld) 70.5 % High 47-70 [facility] Comment on above: Order Comment: 109 Performed By: #### L 100.0100 ####[facility] [address] [place], [address] Nucleated RBC (Bld) [#/Vol] 0 10*3/uL Normal 0-5 [facility] Comment on above: Order Comment: 109 Performed By: #### L 100.0100 ####[facility] [address] [place], [address] Platelet mean volume (Bld) [Entitic vol] 11.0 fL Normal 6.2-12.0 [facility] Comment on above: Order Comment: 109 Performed By: #### L 100.0100 ####[facility] [address] [place], [address] Platelets (Bld) [#/Vol] 208 10*3/uL Normal 150-450 [facility] Comment on above: Order Comment: 109 Performed By: #### L 100.0100 ####[facility] [address] [place], [address] RBC (Bld) [#/Vol] 4.59 10*6/uL Low 4.6-6.2 [facility] Comment on above: Order Comment: 109 Performed By: #### L 100.0100 ####[facility] [address] [place], [address] RDW SD 42.8 fl Normal 35.1-43.9 [facility] Comment on above: Order Comment: 109 Performed By: #### L 100.0100 ####[facility] [address] [place], [address] WBC (Bld) [#/Vol] 10.0 10*3/uL Normal 4.4-11.0 [facility] Comment on above: Order Comment: 109 Performed By: #### L 100.0100 ####[facility] [address] [place], [address] Eosinophil percentageOrdered By: Renard Burgos on 07-01-2024 Eosinophils/100 WBC (Bld) 1.3 % 0-5 [facility] Erythrocyte distribution wid th ratioOrdered By: Renard Burgos on 07-01-2024 Erythrocyte distribution width (RBC) [Ratio] 13.1 % 11.6-14.6 [facility] Erythrocyte distribution wid th standard deviationOrdered By: Renard Burgos on 07-01-2024 Erythrocyte distribution width (RBC) [Entitic vol] 42.8 fL 35.1-43.9 [facility] Erythrocyte distribution width (RBC) [Ratio] 42.8 fl 35.1-43.9 [facility] Hematocrit Auto (Bld) [Volum e fraction]Ordered By: Renard Burgos on 07-01-2024 Hematocrit (Bld) [Volume fraction] 41.7 % 40-54 [facility] Hemoglobin measurementOrdere d By: Renard Burgos on 07-01-2024 Hemoglobin (Bld) [Mass/Vol] 13.6 g/dL 13.0-16.5 [facility] Immature granulocytes/100 WB C Auto (Bld)Ordered By: Renard Burgos on 07-01-2024 Immature granulocytes/100 WBC (Bld) 0.500 % 0.0-0.9 [facility] Comment on above: IG% - Immature Granu locytes (promyelocytes, myelocytes and metamyelocytes) > 1% indicates that a LEFT SHIFT is Present. Lymphocytes Auto (Unsp spec) [#/Vol]Ordered By: Renard Burgos on 07-01-2024 Lymphocytes (Bld) [#/Vol] 2.03 10*3/uL 0.83-4.51 [facility] Lymphocytes/100 WBC Auto (Un sp spec)Ordered By: Renard Burgos on 07-01-2024 Lymphocytes/100 WBC (Bld) 20.3 % 19-41 [facility] MCV (mean corpuscular volume ) determinationOrdered By: Renard Burgos on 07-01-2024 MCV (RBC) [Entitic vol] 90.8 fL 80-94 W [facility] Mean corpuscular hemoglobin (MCH) determinationOrdered By: Renard Burgos on 07-01-2024 MCH (RBC) [Entitic mass] 29.6 pg 27.0-32.0 [facility] Mean corpuscular hemoglobin concentration (MCHC) determinationOrdered By: Renard Burgos on 07-01-2024 MCHC (RBC) [Mass/Vol] 32.6 g/dL 32-36 [facility] Mean platelet volume determi nationOrdered By: Renard Burgos on 07-01-2024 Platelet mean volume (Bld) [Entitic vol] 11.0 fL 6.2-12.0 [facility] Monocyte percentageOrdered B y: Renard Burgos on 07-01-2024 Monocytes/100 WBC (Bld) 6.8 % 0-10 W [facility] Neutrophil percentageOrdered By: Renard Burgos on 07-01-2024 Neutrophils/100 WBC (Bld) 70.5 % High 47-70 [facility] Nucleated red blood cell per centageOrdered By: Renard Burgos on 07-01-2024 Nucleated RBC/100 WBC (Bld) [Ratio] 0 % 0-5 [facility] Platelet countOrdered By: Garrick Bhatt on 07-01-2024 Platelets (Bld) [#/Vol] 208 10*3/uL 150-450 [facility] RBC Auto (Bld) [#/Vol]Ordere d By: Renard Burgos on 07-01-2024 RBC (Bld) [#/Vol] 4.59 10*6/uL Low 4.6-6.2 [facility] White blood cell (WBC) count Ordered By: Renard Burgos on 07-01-2024 WBC (Bld) [#/Vol] 10.0 10*3/uL 4.4-11.0 [facility] Urine Cultureon 06-30-2024 URC Normal [facility] Comment on above: Performed By: #### M 100.2200, L400.0001 ####[facility] [address] [place], [address] Bilirubin Test strip Ql (U)O rdered By: eRnard Burgos on 06-27-2024 Bilirubin Ql (U) Negative Negative [facility] Epithelial cells.squamous LM Ql (Urine sed)Ordered By: Renard Burgos on 06-27-2024 Epithelial cells.squamous LM.HPF (Urine sed) [#/Area] 0 /[HPF] 0-5 [facility] Glucose Ql (U)Ordered By: Garrick Bhatt on 06-27-2024 Urine Glucose (UA) Normal mg/dl Normal [facility] Ketones Test strip Ql (U)Ord ered By: Renard Burgos on 06-27-2024 Ketones Ql (U) Negative Negative [facility] Microscopic analysis of urin e for red blood cells (RBC)Ordered By: Renard Burgos on 06-27-2024 Microscopic analysis of urine for red blood cells (RBC) 0 SEEN /hpf 0-5 [facility] Urine RBC 0 SEEN /hpf 0-5 [facility] Mucus LM Ql (Urine sed)Order ed By: Renard Burgos on 06-27-2024 Mucus Ql (Urine sed) 0 SEEN /hpf [facility] Nitrite Test strip Ql (U)Ord ered By: Renard Burgos on 06-27-2024 Nitrite Ql (U) Negative Negative [facility] Protein Test strip Ql (U)Ord ered By: Renard Burgos on 06-27-2024 Protein Ql (U) 15 mg/dl High Negative [facility] Squamous epithelial cells de tection in urine sediment by light microscopyOrdered By: Renard Burgos on 06-27-2024 Epithelial cells.squamous LM Ql (Urine sed) 0 SEEN /hpf 0-5 [facility] Urinalysis, Completeon 06-27 RBC 0 SEEN Normal 0-5 [facility] Comment on above: Order Comment: ARCHANA MCBRIDE SPECIMEN Performed By: #### M 100.2200, L400.0001 ####[facility] [address] [place], [address] Urine blood detectionOrdered By: Renard Burgos on 06-27-2024 Urine Occult Blood Negative Negative [facility] Urine clarityOrdered By: Lyubov Burgos on 06-27-2024 Clarity (U) Clear Clear [facility] Urine color determinationOrd ered By: Renard Burgos on 06-27-2024 Color (U) Yellow Yellow [facility] Urine cultureOrdered By: Lyubov Burgos on 06-27-2024 Bacteria identified Cx Nom (U) Staphylococcus warneri Abnormal [facility] Bacteria identified Cx Nom (U) Aerococcus viridans. Abnormal [facility] Bacteria identified Cx Nom (U) Presumptive C albicans Abnormal [facility] Bacteria identified Cx Nom (U) Staphylococcus warneri Abnormal [facility] Bacteria identified Cx Nom (U) Aerococcus viridans. Abnormal [facility] Bacteria identified Cx Nom (U) Presumptive C albicans Abnormal [facility] Urine glucose detectionOrder ed By: Renard Burgos on 06-27-2024 Glucose Ql (U) Normal mg/dl Normal [facility] Urine leukocyte esterase det ection by dipstickOrdered By: Renard Burgos on 06-27-2024 Leukocyte esterase Test strip Ql (U) Negative Negative [facility] Urine pHOrdered By: Renard ocampo on 06-27-2024 pH (U) 7.0 [pH] 5.0 - 8.0 [facility] Urine sediment bacteria coun t by microscopy (number/high power field)Ordered By: Renard Burgos on 06-27-2024 Bacteria LM.HPF (Urine sed) [#/Area] 0 /[HPF] None Seen [facility] Urine specific gravity measu rementOrdered By: Renard Burgos on 06-27-2024 Specific gravity (U) [Rel density] 1.010 1.002-1.030 [facility] Urine urobilinogen measureme ntOrdered By: Renard Burgos on 06-27-2024 Urobilinogen Ql (U) 4 mg/dl High Normal [facility] Urobilinogen Ql (U)Ordered B y: Renard Burgos on 06-27-2024 Urobilinogen (U) [Mass/Vol] 4 mg/dL High Normal [facility] White blood cell countOrdere d By: Renard Burgos on 06-27-2024 Urine WBC 0 SEEN /hpf 0-5 [facility] White blood cell count 0 SEEN /hpf 0-5 W [facility] CT CHEST WO IV CONTRASTon CT CHEST [...] 8:07 AM EST Cough x 2months Normal [facility] CT Chest WO contraston 06-26 Nonspecific groundglass densities are noted in the bilateral lower lobes. 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 [facility] Maria Eugenia Ruiz MD - [...] Electronically Signed Date/Time: 06/26/2024 8:[address] [facility] [address] Chest WO contrastOrdered By: Maria Eugenia Ruiz on 06-26-2024 [employer] Work Phone: Absolute lymphocyte countOrd ered By: Renard Burgos on 06-24-2024 Lymphocytes Auto (Unsp spec) [#/Vol] 1.65 10*3/uL 0.83-4.51 [facility] Absolute neutrophil countOrd ered By: Renard Burgos on 06-24-2024 Neutrophils (Bld) [#/Vol] 10.2 10*3/uL High 2.0-7.7 [facility] Automated lymphocyte count a s percentage of total leukocytesOrdered By: Renard Burgos on 06-24-2024 Lymphocytes/100 WBC Auto (Unsp spec) 12.8 % Low 19-41 [facility] Basic Metabolic Profile (BMP )on 06-24-2024 BUN/CRE 24.9 RATIO High 10-20 [facility] Comment on above: Order Comment: 109.1 Performed By: #### L 100.0100, L500.2500 ####[facility] [address] [place], [address] CA,Total 8.3 mg/dL Low 8.5-10.1 [facility] Comment on above: Order Comment: 109.1 Performed By: #### L 100.0100, L500.2500 ####[facility] [address] [place], [address] Chloride [Moles/Vol] 107 mmol/L Normal 98-107 [facility] Comment on above: Order Comment: 109.1 Performed By: #### L 100.0100, L500.2500 ####[facility] [address] [place], [address] CO2 [Moles/Vol] 24.0 mmol/L Normal 21.0-32.0 [facility] Comment on above: Order Comment: 109.1 Performed By: #### L 100.0100, L500.2500 ####[facility] [address] [place], [address] Creatinine [Mass/Vol] 0.60 mg/dL Low 0.70-1.30 [facility] Comment on above: Order Comment: 109.1 Result Comment: The validity of the calculated GFR GFRAA in patients over70 years has not been determined. Clinical correlation isessential. Performed By: #### L 100.0100, L500.2500 ####[facility] [address] [place], [address] EST GFR - AA 172 mL/min Normal >60 [facility] Comment on above: Order Comment: 109.1 Result Comment: Afri can [place] GFR Calc Performed By: #### L 100.0100, L500.2500 ####[facility] [address] [place], [address] GAP 8 Normal 5-15 [facility] Comment on above: Order Comment: 109.1 Performed By: #### L 100.0100, L500.2500 ####[facility] [address] [place], [address] GFR/1.73 sq M.predicted among non-blacks MDRD (S/P/Bld) [Vol rate/Area] 142 mL/min/{1.73_m2} Normal >60 [facility] Comment on above: Order Comment: 109.1 Result Comment: Non- GFR Calc Performed By: #### L 100.0100, L500.2500 ####[facility] [address] [place], [address] Glucose [Mass/Vol] 101 mg/dL Normal 74-106 [facility] Comment on above: Order Comment: 109.1 Result Comment: Fast ing Glucose result from 100 to 125 mg/dLsuggests IMPAIRED HOMEOSTASIS per A.D.A. criteria. Performed By: #### L 100.0100, L500.2500 ####[facility] [address] [place], [address] Potassium [Moles/Vol] 4.1 mmol/L Normal 3.5-5.1 [facility] Comment on above: Order Comment: 109.1 Performed By: #### L 100.0100, L500.2500 ####[facility] [address] [place], [address] Sodium [Moles/Vol] 139 mmol/L Normal 136-145 [facility] Comment on above: Order Comment: 109.1 Performed By: #### L 100.0100, L500.2500 ####[facility] [address] [place], [address] Urea nitrogen [Mass/Vol] 15 mg/dL Normal 7-18 [facility] Comment on above: Order Comment: 109.1 Performed By: #### L 100.0100, L500.2500 ####[facility] [address] [place], [address] Basophil percentageOrdered B y: Renard Burgos on 06-24-2024 Basophils/100 WBC (Bld) 0.5 % 0-1 W [facility] Blood urea nitrogen (BUN)/cr eatinine ratioOrdered By: Renard Burgos on 06-24-2024 Urea nitrogen/Creatinine [Mass ratio] 24.9 mg/mg High 10-20 [facility] CBC W/Diff, Automatedon 06-02 Absolute Lymph 1.65 X10 3/uL Normal 0.83-4.51 [facility] Comment on above: Order Comment: 109.1 Performed By: #### L 100.0100, L500.2500 ####[facility] [address] [place], [address] Absolute Neut 10.2 X10 3/uL High 2.0-7.7 [facility] Comment on above: Order Comment: 109.1 Performed By: #### L 100.0100, L500.2500 ####[facility] [address] [place], [address] Basophils/100 WBC (Bld) 0.5 % Normal 0-1 W [facility] Comment on above: Order Comment: 109.1 Performed By: #### L 100.0100, L500.2500 ####[facility] [address] [place], [address] Eosinophils/100 WBC (Bld) 0.8 % Normal 0-5 [facility] Comment on above: Order Comment: 109.1 Performed By: #### L 100.0100, L500.2500 ####[facility] [address] [place], [address] Erythrocyte distribution width (RBC) [Ratio] 13.2 % Normal 11.6-14.6 [facility] Comment on above: Order Comment: 109.1 Performed By: #### L 100.0100, L500.2500 ####[facility] [address] [place], [address] Hematocrit (Bld) [Volume fraction] 41.8 % Normal 40-54 [facility] Comment on above: Order Comment: 109.1 Performed By: #### L 100.0100, L500.2500 ####[facility] [address] [place], [address] Hemoglobin (Bld) [Mass/Vol] 13.6 g/dL Normal 13.0-16.5 [facility] Comment on above: Order Comment: 109.1 Performed By: #### L 100.0100, L500.2500 ####[facility] [address] [place], [address] IG% 0.500 Normal 0.0-0.9 [facility] Comment on above: Order Comment: 109.1 Result Comment: IG% - Immature Granulocytes (promyelocytes, myelocytes andmetamyelocytes) > 1% indicates that a LEFT SHIFT is Present. Performed By: #### L 100.0100, L500.2500 ####[facility] [address] [place], [address] Lymphocytes/100 WBC (Bld) 12.8 % Low 19-41 [facility] Comment on above: Order Comment: 109.1 Performed By: #### L 100.0100, L500.2500 ####[facility] [address] [place], [address] MCH (RBC) [Entitic mass] 30.2 pg Normal 27.0-32.0 [facility] Comment on above: Order Comment: 109.1 Performed By: #### L 100.0100, L500.2500 ####[facility] [address] [place], [address] MCHC (RBC) [Mass/Vol] 32.5 g/dL Normal 32-36 [facility] Comment on above: Order Comment: 109.1 Performed By: #### L 100.0100, L500.2500 ####[facility] [address] [place], [address] MCV (RBC) [Entitic vol] 92.7 fL Normal 80-94 [facility] Comment on above: Order Comment: 109.1 Performed By: #### L 100.0100, L500.2500 ####[facility] [address], [address] Monocytes/100 WBC (Bld) 6.4 % Normal 0-10 W [facility] Comment on above: Order Comment: 109.1 Performed By: #### L 100.0100, L500.2500 ####[facility] [address] [place], [address] Neutrophils/100 WBC (Bld) 79.0 % High 47-70 [facility] Comment on above: Order Comment: 109.1 Performed By: #### L 100.0100, L500.2500 ####[facility] [address] [place], [address] Nucleated RBC (Bld) [#/Vol] 0 10*3/uL Normal 0-5 [facility] Comment on above: Order Comment: 109.1 Performed By: #### L 100.0100, L500.2500 ####[facility] [address] [place], [address] Platelet mean volume (Bld) [Entitic vol] 11.3 fL Normal 6.2-12.0 [facility] Comment on above: Order Comment: 109.1 Performed By: #### L 100.0100, L500.2500 ####[facility] [address] [place], [address] Platelets (Bld) [#/Vol] 171 10*3/uL Normal 150-450 [facility] Comment on above: Order Comment: 109.1 Performed By: #### L 100.0100, L500.2500 ####[facility] [address] [place], [address] RBC (Bld) [#/Vol] 4.51 10*6/uL Low 4.6-6.2 [facility] Comment on above: Order Comment: 109.1 Performed By: #### L 100.0100, L500.2500 ####[facility] [address] [place], [address] RDW SD 45.1 fl High 35.1-43.9 [facility] Comment on above: Order Comment: 109.1 Performed By: #### L 100.0100, L500.2500 ####[facility] [address] [place], [address] WBC (Bld) [#/Vol] 12.9 10*3/uL High 4.4-11.0 [facility] Comment on above: Order Comment: 109.1 Performed By: #### L 100.0100, L500.2500 ####[facility] [address] [place], [address] CT Chest WO contraston 06-24 Radiology Study observation (narrative) Ericka smith Carbon dioxide measurementOr dered By: Renard Burgos on 06-24-2024 CO2 [Moles/Vol] 24.0 mmol/L 21.0-32.0 [facility] Chloride measurementOrdered By: Renard Burgos on 06-24-2024 Chloride [Moles/Vol] 107 mmol/L 98-107 [facility] Eosinophil percentageOrdered By: Renard Burgos on 06-24-2024 Eosinophils/100 WBC (Bld) 0.8 % 0-5 [facility] Erythrocyte distribution wid th ratioOrdered By: Renard Burgos on 06-24-2024 Erythrocyte distribution width (RBC) [Ratio] 13.2 % 11.6-14.6 [facility] Erythrocyte distribution wid th standard deviationOrdered By: Renard Burgos on 06-24-2024 Erythrocyte distribution width (RBC) [Entitic vol] 45.1 fL High 35.1-43.9 [facility] Erythrocyte distribution width (RBC) [Ratio] 45.1 fl High 35.1-43.9 [facility] Estimated glomerular filtrat ion rate (GFR) AmericanOrdered By: Renard Burgos on 06-24-2024 Estimated GFR (MDRD) Amer 172 mL/min >60 [facility] Comment on above: GFR Calc Glomerular filtration rate ( GFR) estimationOrdered By: Renard Burgos on 06-24-2024 Estimated GFR (MDRD) Non-Af Amer 142 mL/min >60 [facility] Comment on above: Non- GFR Calc GFR/1.73 sq M.predicted among non-blacks MDRD (S/P/Bld) [Vol rate/Area] 142 mL/min/{1.73_m2} >60 [facility] Comment on above: Non- GFR Calc Glucose measurementOrdered B y: Renard Burgos on 06-24-2024 Glucose [Mass/Vol] 101 mg/dL 74-106 [facility] Comment on above: Fasting Glucose resu lt from 100 to 125 mg/dL suggests IMPAIRED HOMEOSTASIS per A.D.A. criteria. Hematocrit Auto (Bld) [Volum e fraction]Ordered By: Renard Burgos on 06-24-2024 Hematocrit (Bld) [Volume fraction] 41.8 % 40-54 [facility] Hemoglobin measurementOrdere d By: Renard Burgos on 06-24-2024 Hemoglobin (Bld) [Mass/Vol] 13.6 g/dL 13.0-16.5 [facility] Immature granulocytes/100 WB C Auto (Bld)Ordered By: Renard Burgos on 06-24-2024 Immature granulocytes/100 WBC (Bld) 0.500 % 0.0-0.9 [facility] Comment on above: IG% - Immature Granu locytes (promyelocytes, myelocytes and metamyelocytes) > 1% indicates that a LEFT SHIFT is Present. Lymphocytes Auto (Unsp spec) [#/Vol]Ordered By: Renard Burgos on 06-24-2024 Lymphocytes (Bld) [#/Vol] 1.65 10*3/uL 0.83-4.51 [facility] Lymphocytes/100 WBC Auto (Un sp spec)Ordered By: Renard Burgos on 06-24-2024 Lymphocytes/100 WBC (Bld) 12.8 % Low 19-41 [facility] MCV (mean corpuscular volume ) determinationOrdered By: Renard Burgos on 06-24-2024 MCV (RBC) [Entitic vol] 92.7 fL 80-94 [facility] Mean corpuscular hemoglobin (MCH) determinationOrdered By: Renard Burgos on 06-24-2024 MCH (RBC) [Entitic mass] 30.2 pg 27.0-32.0 [facility] Mean corpuscular hemoglobin concentration (MCHC) determinationOrdered By: Renard Burgos on 06-24-2024 MCHC (RBC) [Mass/Vol] 32.5 g/dL 32-36 [facility] Mean platelet volume determi nationOrdered By: Renard Burgos on 06-24-2024 Platelet mean volume (Bld) [Entitic vol] 11.3 fL 6.2-12.0 [facility] Monocyte percentageOrdered B y: Renard Burgos on 06-24-2024 Monocytes/100 WBC (Bld) 6.4 % 0-10 [facility] Neutrophil percentageOrdered By: Renard Burgos on 06-24-2024 Neutrophils/100 WBC (Bld) 79.0 % High 47-70 [facility] Nucleated red blood cell per centageOrdered By: Renard Burgos on 06-24-2024 Nucleated RBC/100 WBC (Bld) [Ratio] 0 % 0-5 [facility] Platelet countOrdered By: Garrick Bhatt on 06-24-2024 Platelets (Bld) [#/Vol] 171 10*3/uL 150-450 [facility] Potassium measurementOrdered By: Renard Burgos on 06-24-2024 Potassium [Moles/Vol] 4.1 mmol/L 3.5-5.1 [facility] RBC Auto (Bld) [#/Vol]Ordere d By: Renard Burgos on 06-24-2024 RBC (Bld) [#/Vol] 4.51 10*6/uL Low 4.6-6.2 [facility] Serum anion gap measurementO rdered By: Renard Burgos on 06-24-2024 Anion gap [Moles/Vol] 8 mmol/L 5-15 [facility] Serum or plasma calcium gordy urement (mass/volume)Ordered By: Renard Burgos on 06-24-2024 Calcium [Mass/Vol] 8.3 mg/dL Low 8.5-10.1 [facility] Serum or plasma creatinine m easurement (mass/volume)Ordered By: Renard Burgos on 06-24-2024 Creatinine [Mass/Vol] 0.60 mg/dL Low 0.70-1.30 [facility] Comment on above: The validity of the calculated GFR & GFRAA in patients over 70 years has not been determined. Clinical correlation is essential. Serum or plasma urea nitroge n measurement (mass/volume)Ordered By: Renard Burgos on 06-24-2024 Urea nitrogen [Mass/Vol] 15 mg/dL 7-18 [facility] Sodium levelOrdered By: Lamine Burgos on 06-24-2024 Sodium [Moles/Vol] 139 mmol/L 136-145 [facility] White blood cell (WBC) count Ordered By: Renard Burgos on 06-24-2024 WBC (Bld) [#/Vol] 12.9 10*3/uL High 4.4-11.0 [facility] Absolute lymphocyte countOrd ered By: Renard Burgos on 06-17-2024 Lymphocytes Auto (Unsp spec) [#/Vol] 2.00 10*3/uL 0.83-4.51 [facility] Absolute neutrophil countOrd ered By: Renard Burgos on 06-17-2024 Neutrophils (Bld) [#/Vol] 5.1 10*3/uL 2.0-7.7 [facility] Automated lymphocyte count a s percentage of total leukocytesOrdered By: Renard Burgos on 06-17-2024 Lymphocytes/100 WBC Auto (Unsp spec) 24.5 % 19-41 [facility] Basophil percentageOrdered B y: Renard Burgos on 06-17-2024 Basophils/100 WBC (Bld) 1.1 % High 0-1 [facility] CBC W/Diff, Automatedon 06-01 Absolute Lymph 2.00 X10 3/uL Normal 0.83-4.51 [facility] Comment on above: Order Comment: 109-1 Performed By: #### L 100.0100 ####[facility] [address] [place], [address] Absolute Neut 5.1 X10 3/uL Normal 2.0-7.7 [facility] Comment on above: Order Comment: 109-1 Performed By: #### L 100.0100 ####[facility] [address] [place], [address] Basophils/100 WBC (Bld) 1.1 % High 0-1 [facility] Comment on above: Order Comment: 109-1 Performed By: #### L 100.0100 ####[facility] [address] [place], [address] Eosinophils/100 WBC (Bld) 3.4 % Normal 0-5 [facility] Comment on above: Order Comment: 109-1 Performed By: #### L 100.0100 ####[facility] [address] [place], [address] Erythrocyte distribution width (RBC) [Ratio] 13.3 % Normal 11.6-14.6 [facility] Comment on above: Order Comment: 109-1 Performed By: #### L 100.0100 ####[facility] [address] [place], [address] Hematocrit (Bld) [Volume fraction] 39.3 % Low 40-54 [facility] Comment on above: Order Comment: 109-1 Performed By: #### L 100.0100 ####[facility] [address] [place], [address] Hemoglobin (Bld) [Mass/Vol] 12.8 g/dL Low 13.0-16.5 [facility] Comment on above: Order Comment: 109-1 Performed By: #### L 100.0100 ####[facility] [address] [place], [address] IG% 0.200 Normal 0.0-0.9 [facility] Comment on above: Order Comment: 109-1 Result Comment: IG% - Immature Granulocytes (promyelocytes, myelocytes andmetamyelocytes) > 1% indicates that a LEFT SHIFT is Present. Performed By: #### L 100.0100 ####[facility] [address] [place], [address] Lymphocytes/100 WBC (Bld) 24.5 % Normal 19-41 [facility] Comment on above: Order Comment: 109-1 Performed By: #### L 100.0100 ####[facility] [address] [place], [address] MCH (RBC) [Entitic mass] 29.6 pg Normal 27.0-32.0 [facility] Comment on above: Order Comment: 109-1 Performed By: #### L 100.0100 ####[facility] [address] [place], [address] MCHC (RBC) [Mass/Vol] 32.6 g/dL Normal 32-36 [facility] Comment on above: Order Comment: 109-1 Performed By: #### L 100.0100 ####[facility] [address] [place], [address] MCV (RBC) [Entitic vol] 90.8 fL Normal 80-94 [facility] Comment on above: Order Comment: 109-1 Performed By: #### L 100.0100 ####[facility] [address] [place], [address] Monocytes/100 WBC (Bld) 8.8 % Normal 0-10 [facility] Comment on above: Order Comment: 109-1 Performed By: #### L 100.0100 ####[facility] [address] [place], [address] Neutrophils/100 WBC (Bld) 62.0 % Normal 47-70 [facility] Comment on above: Order Comment: 109-1 Performed By: #### L 100.0100 ####[facility] [address] [place], [address] Nucleated RBC (Bld) [#/Vol] 0 10*3/uL Normal 0-5 [facility] Comment on above: Order Comment: 109-1 Performed By: #### L 100.0100 ####[facility] [address] [place], [address] Platelet mean volume (Bld) [Entitic vol] 10.9 fL Normal 6.2-12.0 [facility] Comment on above: Order Comment: 109-1 Performed By: #### L 100.0100 ####[facility] [address] [place], [address] Platelets (Bld) [#/Vol] 218 10*3/uL Normal 150-450 [facility] Comment on above: Order Comment: 109-1 Performed By: #### L 100.0100 ####[facility] [address] [place], [address] RBC (Bld) [#/Vol] 4.33 10*6/uL Low 4.6-6.2 [facility] Comment on above: Order Comment: 109-1 Performed By: #### L 100.0100 ####[facility] [address] [place], [address] RDW SD 44.0 fl High 35.1-43.9 [facility] Comment on above: Order Comment: 109-1 Performed By: #### L 100.0100 ####[facility] [address] [place], [address] WBC (Bld) [#/Vol] 8.2 10*3/uL Normal 4.4-11.0 [facility] Comment on above: Order Comment: 109-1 Performed By: #### L 100.0100 ####[facility] [address] [place], [address] Eosinophil percentageOrdered By: Renard Burgos on 06-17-2024 Eosinophils/100 WBC (Bld) 3.4 % 0-5 [facility] Erythrocyte distribution wid th ratioOrdered By: Renard Burgos on 06-17-2024 Erythrocyte distribution width (RBC) [Ratio] 13.3 % 11.6-14.6 [facility] Erythrocyte distribution wid th standard deviationOrdered By: Renard Burgos on 06-17-2024 Erythrocyte distribution width (RBC) [Entitic vol] 44.0 fL High 35.1-43.9 [facility] Erythrocyte distribution width (RBC) [Ratio] 44.0 fl High 35.1-43.9 [facility] Hematocrit Auto (Bld) [Volum e fraction]Ordered By: Renard Burgos on 06-17-2024 Hematocrit (Bld) [Volume fraction] 39.3 % Low 40-54 [facility] Hemoglobin measurementOrdere d By: Renard Burgos on 06-17-2024 Hemoglobin (Bld) [Mass/Vol] 12.8 g/dL Low 13.0-16.5 [facility] Immature granulocytes/100 WB C Auto (Bld)Ordered By: Renard Burgos on 06-17-2024 Immature granulocytes/100 WBC (Bld) 0.200 % 0.0-0.9 [facility] Comment on above: IG% - Immature Granu locytes (promyelocytes, myelocytes and metamyelocytes) > 1% indicates that a LEFT SHIFT is Present. Lymphocytes Auto (Unsp spec) [#/Vol]Ordered By: Renard Burgos on 06-17-2024 Lymphocytes (Bld) [#/Vol] 2.00 10*3/uL 0.83-4.51 [facility] Lymphocytes/100 WBC Auto (Un sp spec)Ordered By: Renard Burgos on 06-17-2024 Lymphocytes/100 WBC (Bld) 24.5 % 19-41 [facility] MCV (mean corpuscular volume ) determinationOrdered By: Renard Burgos on 06-17-2024 MCV (RBC) [Entitic vol] 90.8 fL 80-94 [facility] Mean corpuscular hemoglobin (MCH) determinationOrdered By: Renard Burgos on 06-17-2024 MCH (RBC) [Entitic mass] 29.6 pg 27.0-32.0 [facility] Mean corpuscular hemoglobin concentration (MCHC) determinationOrdered By: Renard Burgos on 06-17-2024 MCHC (RBC) [Mass/Vol] 32.6 g/dL 32-36 [facility] Mean platelet volume determi nationOrdered By: Renard Burgos on 06-17-2024 Platelet mean volume (Bld) [Entitic vol] 10.9 fL 6.2-12.0 [facility] Monocyte percentageOrdered B y: Renard Burgos on 06-17-2024 Monocytes/100 WBC (Bld) 8.8 % 0-10 [facility] Neutrophil percentageOrdered By: Renard Burgos on 06-17-2024 Neutrophils/100 WBC (Bld) 62.0 % 47-70 [facility] Nucleated red blood cell per centageOrdered By: Renard Burgos on 06-17-2024 Nucleated RBC/100 WBC (Bld) [Ratio] 0 % 0-5 [facility] Platelet countOrdered By: Garrick Bhatt on 06-17-2024 Platelets (Bld) [#/Vol] 218 10*3/uL 150-450 [facility] RBC Auto (Bld) [#/Vol]Ordere d By: Renard Burgos on 06-17-2024 RBC (Bld) [#/Vol] 4.33 10*6/uL Low 4.6-6.2 [facility] White blood cell (WBC) count Ordered By: Renard Burgos on 06-17-2024 WBC (Bld) [#/Vol] 8.2 10*3/uL 4.4-11.0 [facility] Absolute lymphocyte countOrd ered By: Renard Burgos on 06-10-2024 Lymphocytes Auto (Unsp spec) [#/Vol] 2.38 10*3/uL 0.83-4.51 [facility] Absolute neutrophil countOrd ered By: Renard Burgos on 06-10-2024 Neutrophils (Bld) [#/Vol] 5.3 10*3/uL 2.0-7.7 [facility] Automated lymphocyte count a s percentage of total leukocytesOrdered By: Renard Burgos on 06-10-2024 Lymphocytes/100 WBC Auto (Unsp spec) 27.5 % 19-41 [facility] Basophil percentageOrdered B y: Renard Burgos on 06-10-2024 Basophils/100 WBC (Bld) 0.7 % 0-1 [facility] CBC W/Diff, Automatedon - 0-2024 Absolute Lymph 2.38 X10 3/uL Normal 0.83-4.51 [facility] Comment on above: Order Comment: 109.1 Performed By: #### L 100.0100 ####[facility] [address] [place], [address] Absolute Neut 5.3 X10 3/uL Normal 2.0-7.7 [facility] Comment on above: Order Comment: 109.1 Performed By: #### L 100.0100 ####[facility] [address] [place], [address] Basophils/100 WBC (Bld) 0.7 % Normal 0-1 [facility] Comment on above: Order Comment: 109.1 Performed By: #### L 100.0100 ####[facility] [address] [place], [address] Eosinophils/100 WBC (Bld) 0.7 % Normal 0-5 [facility] Comment on above: Order Comment: 109.1 Performed By: #### L 100.0100 ####[facility] [address] [place], [address] Erythrocyte distribution width (RBC) [Ratio] 13.1 % Normal 11.6-14.6 [facility] Comment on above: Order Comment: 109.1 Performed By: #### L 100.0100 ####[facility] [address] [place], [address] Hematocrit (Bld) [Volume fraction] 41.1 % Normal 40-54 [facility] Comment on above: Order Comment: 109.1 Performed By: #### L 100.0100 ####[facility] [address] [place], [address] Hemoglobin (Bld) [Mass/Vol] 13.5 g/dL Normal 13.0-16.5 [facility] Comment on above: Order Comment: 109.1 Performed By: #### L 100.0100 ####[facility] [address] [place], [address] IG% 0.500 Normal 0.0-0.9 [facility] Comment on above: Order Comment: 109.1 Result Comment: IG% - Immature Granulocytes (promyelocytes, myelocytes andmetamyelocytes) > 1% indicates that a LEFT SHIFT is Present. Performed By: #### L 100.0100 ####[facility] [address] [place], [address] Lymphocytes/100 WBC (Bld) 27.5 % Normal 19-41 [facility] Comment on above: Order Comment: 109.1 Performed By: #### L 100.0100 ####[facility] [address] [place], [address] MCH (RBC) [Entitic mass] 30.1 pg Normal 27.0-32.0 [facility] Comment on above: Order Comment: 109.1 Performed By: #### L 100.0100 ####[facility] [address] [place], [address] MCHC (RBC) [Mass/Vol] 32.8 g/dL Normal 32-36 [facility] Comment on above: Order Comment: 109.1 Performed By: #### L 100.0100 ####[facility] [address] [place], [address] MCV (RBC) [Entitic vol] 91.7 fL Normal 80-94 [facility] Comment on above: Order Comment: 109.1 Performed By: #### L 100.0100 ####[facility] [address] [place], [address] Monocytes/100 WBC (Bld) 9.6 % Normal 0-10 [facility] Comment on above: Order Comment: 109.1 Performed By: #### L 100.0100 ####[facility] [address] [place], [address] Neutrophils/100 WBC (Bld) 61.0 % Normal 47-70 [facility] Comment on above: Order Comment: 109.1 Performed By: #### L 100.0100 ####[facility] [address] [place], [address] Nucleated RBC (Bld) [#/Vol] 0 10*3/uL Normal 0-5 [facility] Comment on above: Order Comment: 109.1 Performed By: #### L 100.0100 ####[facility] [address] [place], [address] Platelet mean volume (Bld) [Entitic vol] 11.0 fL Normal 6.2-12.0 [facility] Comment on above: Order Comment: 109.1 Performed By: #### L 100.0100 ####[facility] [address] [place], [address] Platelets (Bld) [#/Vol] 261 10*3/uL Normal 150-450 [facility] Comment on above: Order Comment: 109.1 Performed By: #### L 100.0100 ####[facility] [address] [place], [address] RBC (Bld) [#/Vol] 4.48 10*6/uL Low 4.6-6.2 [facility] Comment on above: Order Comment: 109.1 Performed By: #### L 100.0100 ####[facility] [address] [place], [address] RDW SD 43.2 fl Normal 35.1-43.9 [facility] Comment on above: Order Comment: 109.1 Performed By: #### L 100.0100 ####[facility] [address] [place], [address] WBC (Bld) [#/Vol] 8.6 10*3/uL Normal 4.4-11.0 [facility] Comment on above: Order Comment: 109.1 Performed By: #### L 100.0100 ####[facility] [address] [place], [address] Eosinophil percentageOrdered By: Renard Burgos on 06-10-2024 Eosinophils/100 WBC (Bld) 0.7 % 0-5 [facility] Erythrocyte distribution wid th ratioOrdered By: Renard Burgos on 06-10-2024 Erythrocyte distribution width (RBC) [Ratio] 13.1 % 11.6-14.6 [facility] Erythrocyte distribution wid th standard deviationOrdered By: Renard Burgos on 06-10-2024 Erythrocyte distribution width (RBC) [Entitic vol] 43.2 fL 35.1-43.9 [facility] Erythrocyte distribution width (RBC) [Ratio] 43.2 fl 35.1-43.9 [facility] Hematocrit Auto (Bld) [Volum e fraction]Ordered By: Renard Burgos on 06-10-2024 Hematocrit (Bld) [Volume fraction] 41.1 % 40-54 [facility] Hemoglobin measurementOrdere d By: Renard Burgos on 06-10-2024 Hemoglobin (Bld) [Mass/Vol] 13.5 g/dL 13.0-16.5 [facility] Immature granulocytes/100 WB C Auto (Bld)Ordered By: Renard Burgos on 06-10-2024 Immature granulocytes/100 WBC (Bld) 0.500 % 0.0-0.9 [facility] Comment on above: IG% - Immature Granu locytes (promyelocytes, myelocytes and metamyelocytes) > 1% indicates that a LEFT SHIFT is Present. Lymphocytes Auto (Unsp spec) [#/Vol]Ordered By: Renard Burgos on 02-10-2025 Lymphocytes (Bld) [#/Vol] 2.38 10*3/uL 0.83-4.51 [facility] Lymphocytes/100 WBC Auto (Un sp spec)Ordered By: Renard Burgos on 06-10-2024 Lymphocytes/100 WBC (Bld) 27.5 % 19-41 [facility] MCV (mean corpuscular volume ) determinationOrdered By: Renard Burgos on 06-10-2024 MCV (RBC) [Entitic vol] 91.7 fL 80-94 [facility] Mean corpuscular hemoglobin (MCH) determinationOrdered By: Renard Burgos on 06-10-2024 MCH (RBC) [Entitic mass] 30.1 pg 27.0-32.0 [facility] Mean corpuscular hemoglobin concentration (MCHC) determinationOrdered By: Renard Burgos on 06-10-2024 MCHC (RBC) [Mass/Vol] 32.8 g/dL 32-36 [facility] Mean platelet volume determi nationOrdered By: Renard Burgos on 06-10-2024 Platelet mean volume (Bld) [Entitic vol] 11.0 fL 6.2-12.0 [facility] Monocyte percentageOrdered B y: Renard Burgos on 06-10-2024 Monocytes/100 WBC (Bld) 9.6 % 0-10 [facility] Neutrophil percentageOrdered By: Renard Burgos on 06-10-2024 Neutrophils/100 WBC (Bld) 61.0 % 47-70 [facility] Nucleated red blood cell per centageOrdered By: Renard Burgos on 06-10-2024 Nucleated RBC/100 WBC (Bld) [Ratio] 0 % 0-5 [facility] Platelet countOrdered By: Garrick Bhatt on 06-10-2024 Platelets (Bld) [#/Vol] 261 10*3/uL 150-450 [facility] RBC Auto (Bld) [#/Vol]Ordere d By: Renard Burgos on 06-10-2024 RBC (Bld) [#/Vol] 4.48 10*6/uL Low 4.6-6.2 [facility] Urine Cultureon 06-10-2024 URC Normal [facility] Comment on above: Performed By: #### M 100.2200, L400.0001 ####[facility] [address] [place], [address] White blood cell (WBC) count Ordered By: Renard Burgos on 06-10-2024 WBC (Bld) [#/Vol] 8.6 10*3/uL 4.4-11.0 [facility] Bilirubin Test strip Ql (U)O rdered By: Renard Burgos on 06-07-2024 Bilirubin Ql (U) Negative Negative [facility] CBC-Complete Blood Cnt No Di ffon 06-07-2024 Erythrocyte distribution width (RBC) [Ratio] 13.0 % Normal 11.6-14.6 [facility] Comment on above: Order Comment: 109-1 Performed By: #### L 100.0500 ####[facility] [address] [place], [address] Hematocrit (Bld) [Volume fraction] 39.3 % Low 40-54 [facility] Comment on above: Order Comment: 109-1 Performed By: #### L 100.0500 ####[facility] [address] [place], [address] Hemoglobin (Bld) [Mass/Vol] 13.0 g/dL Normal 13.0-16.5 [facility] Comment on above: Order Comment: 109-1 Performed By: #### L 100.0500 ####[facility] [address] [place], [address] MCH (RBC) [Entitic mass] 30.2 pg Normal 27.0-32.0 [facility] Comment on above: Order Comment: 109-1 Performed By: #### L 100.0500 ####[facility] [address] [place], [address] MCHC (RBC) [Mass/Vol] 33.1 g/dL Normal 32-36 [facility] Comment on above: Order Comment: 109-1 Performed By: #### L 100.0500 ####[facility] [address] [place], [address] MCV (RBC) [Entitic vol] 91.2 fL Normal 80-94 [facility] Comment on above: Order Comment: 109-1 Performed By: #### L 100.0500 ####[facility] [address] [place], [address] Platelet mean volume (Bld) [Entitic vol] 10.8 fL Normal 6.2-12.0 [facility] Comment on above: Order Comment: 109-1 Performed By: #### L 100.0500 ####[facility] [address] [place], [address] Platelets (Bld) [#/Vol] 251 10*3/uL Normal 150-450 [facility] Comment on above: Order Comment: 109-1 Performed By: #### L 100.0500 ####[facility] [address] [place], [address] RBC (Bld) [#/Vol] 4.31 10*6/uL Low 4.6-6.2 [facility] Comment on above: Order Comment: 109-1 Performed By: #### L 100.0500 ####[facility] [address] [place], [address] RDW SD 43.7 fl Normal 35.1-43.9 [facility] Comment on above: Order Comment: 109-1 Performed By: #### L 100.0500 ####[facility] [address] [place], [address] WBC (Bld) [#/Vol] 9.9 10*3/uL Normal 4.4-11.0 [facility] Comment on above: Order Comment: 109-1 Performed By: #### L 100.0500 ####[facility] [address] [place], [address] Epithelial cells.squamous LM Ql (Urine sed)Ordered By: Renard Burgos on 06-07-2024 Epithelial cells.squamous LM.HPF (Urine sed) [#/Area] 0 /[HPF] 0-5 [facility] Erythrocyte distribution wid th ratioOrdered By: Renard Burgos on 06-07-2024 Erythrocyte distribution width (RBC) [Ratio] 13.0 % 11.6-14.6 [facility] Erythrocyte distribution wid th standard deviationOrdered By: Renard Burgos on 06-07-2024 Erythrocyte distribution width (RBC) [Entitic vol] 43.7 fL 35.1-43.9 [facility] Erythrocyte distribution width (RBC) [Ratio] 43.7 fl 35.1-43.9 [facility] Glucose Ql (U)Ordered By: Garrick Bhatt on 06-07-2024 Urine Glucose (UA) Normal mg/dl Normal [facility] Hematocrit Auto (Bld) [Volum e fraction]Ordered By: Renard Burgos on 06-07-2024 Hematocrit (Bld) [Volume fraction] 39.3 % Low 40-54 [facility] Hemoglobin measurementOrdere d By: Rneard Burgos on 06-07-2024 Hemoglobin (Bld) [Mass/Vol] 13.0 g/dL 13.0-16.5 [facility] Ketones Test strip Ql (U)Ord ered By: Renard Burgos on 06-07-2024 Ketones Ql (U) Negative Negative [facility] MCV (mean corpuscular volume ) determinationOrdered By: Renard Burgos on 06-07-2024 MCV (RBC) [Entitic vol] 91.2 fL 80-94 W [facility] Mean corpuscular hemoglobin (MCH) determinationOrdered By: Renard Burgos on 06-07-2024 MCH (RBC) [Entitic mass] 30.2 pg 27.0-32.0 [facility] Mean corpuscular hemoglobin concentration (MCHC) determinationOrdered By: Renard Burgos on 06-07-2024 MCHC (RBC) [Mass/Vol] 33.1 g/dL 32-36 [facility] Mean platelet volume determi nationOrdered By: Renard Burgos on 06-07-2024 Platelet mean volume (Bld) [Entitic vol] 10.8 fL 6.2-12.0 [facility] Microscopic analysis of urin e for red blood cells (RBC)Ordered By: Renard Burgos on 06-07-2024 Microscopic analysis of urine for red blood cells (RBC) 0 SEEN /hpf 0-5 [facility] Urine RBC 0 SEEN /hpf 0-5 [facility] Mucus LM Ql (Urine sed)Order ed By: Renard Burgos on 06-07-2024 Mucus Ql (Urine sed) 0 SEEN /hpf [facility] Nitrite Test strip Ql (U)Ord ered By: Renard Burgos on 06-07-2024 Nitrite Ql (U) Negative Negative [facility] Platelet countOrdered By: Garrick Bhatt on 06-07-2024 Platelets (Bld) [#/Vol] 251 10*3/uL 150-450 [facility] Protein Test strip Ql (U)Ord ered By: Renard Burgos on 06-07-2024 Protein Ql (U) 15 mg/dl High Negative [facility] RBC Auto (Bld) [#/Vol]Ordere d By: Renard Burgos on 06-07-2024 RBC (Bld) [#/Vol] 4.31 10*6/uL Low 4.6-6.2 [facility] Squamous epithelial cells de tection in urine sediment by light microscopyOrdered By: Renard Burgos on 06-07-2024 Epithelial cells.squamous LM Ql (Urine sed) 0-5 SEEN /hpf 0-5 [facility] Urinalysis, Completeon 06-07 Mucus Ql (Urine sed) 0 SEEN Normal [facility] Comment on above: Order Comment: CLEAN CATCH Performed By: #### M 100.2200, L400.0001 ####[facility] [address] [place], [address] Urine blood detectionOrdered By: Renard Burgos on 06-07-2024 Urine Occult Blood Negative Negative [facility] Urine clarityOrdered By: Lyubov Burgos on 06-07-2024 Clarity (U) Clear Clear [facility] Urine color determinationOrd ered By: Renard Burgos on 06-07-2024 Color (U) Yellow Yellow [facility] Urine cultureOrdered By: Pet lizy Burgos on 06-07-2024 Bacteria identified Cx Nom (U) Pseudomonas aeruginosa Abnormal [facility] Bacteria identified Cx Nom (U) Pseudomonas aeruginosa Abnormal [facility] Urine glucose detectionOrder ed By: Renard Burgos on 06-07-2024 Glucose Ql (U) Normal mg/dl Normal [facility] Urine leukocyte esterase det ection by dipstickOrdered By: Renard Burgos on 06-07-2024 Leukocyte esterase Test strip Ql (U) Negative Negative [facility] Urine pHOrdered By: Renard ocampo on 06-07-2024 pH (U) 7.0 [pH] 5.0 - 8.0 [facility] Urine sediment bacteria coun t by microscopy (number/high power field)Ordered By: Renard Burgos on 06-07-2024 Bacteria LM.HPF (Urine sed) [#/Area] 2 /[HPF] None Seen [facility] Urine sediment yeast count b y microscopy (number/high powered field)Ordered By: Renard Burgos on 06-07-2024 Yeast LM.HPF (Urine sed) [#/Area] 1 /[HPF] None Seen [facility] Urine specific gravity measu rementOrdered By: Renard Burgos on 06-07-2024 Specific gravity (U) [Rel density] 1.010 1.002-1.030 [facility] Urine urobilinogen measureme ntOrdered By: Renard Burgos on 06-07-2024 Urobilinogen Ql (U) 1 mg/dl High Normal [facility] Urobilinogen Ql (U)Ordered B y: Renard Burgos on 06-07-2024 Urobilinogen (U) [Mass/Vol] 1 mg/dL High Normal [facility] White blood cell (WBC) count Ordered By: Renard Burgos on 06-07-2024 WBC (Bld) [#/Vol] 9.9 10*3/uL 4.4-11.0 [facility] White blood cell countOrdere d By: Renard Burgos on 06-07-2024 Urine WBC 0-5 SEEN /hpf 0-5 [facility] White blood cell count 0-5 SEEN /hpf 0-5 [facility] Yeast LM.HPF (Urine sed) [#/ Area]Ordered By: Renard Burgos on 06-07-2024 Urine Yeast 1+ /hpf None Seen [facility] Absolute lymphocyte countOrd ered By: Renard Burgos on 06-03-2024 Lymphocytes Auto (Unsp spec) [#/Vol] 1.94 10*3/uL 0.83-4.51 [facility] Absolute neutrophil countOrd ered By: Renard Burgos on 06-03-2024 Neutrophils (Bld) [#/Vol] 9.5 10*3/uL High 2.0-7.7 [facility] Automated lymphocyte count a s percentage of total leukocytesOrdered By: Renard Burgos on 06-03-2024 Lymphocytes/100 WBC Auto (Unsp spec) 15.7 % Low 19-41 [facility] Basophil percentageOrdered B y: Renard Burgos on 06-03-2024 Basophils/100 WBC (Bld) 0.5 % 0-1 W [facility] CBC W/Diff, Automatedon - Absolute Lymph 1.94 X10 3/uL Normal 0.83-4.51 [facility] Comment on above: Order Comment: 109-1 Performed By: #### L 100.0100 ####[facility] [address] [place], [address] Absolute Neut 9.5 X10 3/uL High 2.0-7.7 [facility] Comment on above: Order Comment: 109-1 Performed By: #### L 100.0100 ####[facility] [address] [place], [address] Basophils/100 WBC (Bld) 0.5 % Normal 0-1 [facility] Comment on above: Order Comment: 109-1 Performed By: #### L 100.0100 ####[facility] [address] [place], [address] Eosinophils/100 WBC (Bld) 0.3 % Normal 0-5 [facility] Comment on above: Order Comment: 109-1 Performed By: #### L 100.0100 ####[facility] [address] [place], [address] Erythrocyte distribution width (RBC) [Ratio] 13.0 % Normal 11.6-14.6 [facility] Comment on above: Order Comment: 109-1 Performed By: #### L 100.0100 ####[facility] [address] [place], [address] Hematocrit (Bld) [Volume fraction] 40.1 % Normal 40-54 [facility] Comment on above: Order Comment: 109-1 Performed By: #### L 100.0100 ####[facility] [address] [place], [address] Hemoglobin (Bld) [Mass/Vol] 13.2 g/dL Normal 13.0-16.5 [facility] Comment on above: Order Comment: 109-1 Performed By: #### L 100.0100 ####[facility] [address] [place], [address] IG% 0.400 Normal 0.0-0.9 [facility] Comment on above: Order Comment: 109-1 Result Comment: IG% - Immature Granulocytes (promyelocytes, myelocytes andmetamyelocytes) > 1% indicates that a LEFT SHIFT is Present. Performed By: #### L 100.0100 ####[facility] [address] [place], [address] Lymphocytes/100 WBC (Bld) 15.7 % Low 19-41 [facility] Comment on above: Order Comment: 109-1 Performed By: #### L 100.0100 ####[facility] [address] [place], [address] MCH (RBC) [Entitic mass] 30.1 pg Normal 27.0-32.0 [facility] Comment on above: Order Comment: 109-1 Performed By: #### L 100.0100 ####[facility] [address] [place], [address] MCHC (RBC) [Mass/Vol] 32.9 g/dL Normal 32-36 [facility] Comment on above: Order Comment: 109-1 Performed By: #### L 100.0100 ####[facility] [address] [place], [address] MCV (RBC) [Entitic vol] 91.3 fL Normal 80-94 [facility] Comment on above: Order Comment: 109-1 Performed By: #### L 100.0100 ####[facility] [address] [place], [address] Monocytes/100 WBC (Bld) 6.6 % Normal 0-10 [facility] Comment on above: Order Comment: 109-1 Performed By: #### L 100.0100 ####[facility] [address] [place], [address] Neutrophils/100 WBC (Bld) 76.5 % High 47-70 [facility] Comment on above: Order Comment: 109-1 Performed By: #### L 100.0100 ####[facility] [address] [place], [address] Nucleated RBC (Bld) [#/Vol] 0 10*3/uL Normal 0-5 [facility] Comment on above: Order Comment: 109-1 Performed By: #### L 100.0100 ####[facility] [address] [place], [address] Platelet mean volume (Bld) [Entitic vol] 11.1 fL Normal 6.2-12.0 [facility] Comment on above: Order Comment: 109-1 Performed By: #### L 100.0100 ####[facility] [address] [place], [address] Platelets (Bld) [#/Vol] 249 10*3/uL Normal 150-450 [facility] Comment on above: Order Comment: 109-1 Performed By: #### L 100.0100 ####[facility] [address] [place], [address] RBC (Bld) [#/Vol] 4.39 10*6/uL Low 4.6-6.2 [facility] Comment on above: Order Comment: 109-1 Performed By: #### L 100.0100 ####[facility] [address] [place], [address] RDW SD 42.8 fl Normal 35.1-43.9 [facility] Comment on above: Order Comment: 109-1 Performed By: #### L 100.0100 ####[facility] [address] [place], [address] WBC (Bld) [#/Vol] 12.4 10*3/uL High 4.4-11.0 [facility] Comment on above: Order Comment: 109-1 Performed By: #### L 100.0100 ####[facility] [address] [place], [address] Eosinophil percentageOrdered By: Renard Burgos on 06-03-2024 Eosinophils/100 WBC (Bld) 0.3 % 0-5 [facility] Erythrocyte distribution wid th ratioOrdered By: Renard Burgos on 06-03-2024 Erythrocyte distribution width (RBC) [Ratio] 13.0 % 11.6-14.6 [facility] Erythrocyte distribution wid th standard deviationOrdered By: Renard Burgos on 06-03-2024 Erythrocyte distribution width (RBC) [Entitic vol] 42.8 fL 35.1-43.9 [facility] Erythrocyte distribution width (RBC) [Ratio] 42.8 fl 35.1-43.9 [facility] Hematocrit Auto (Bld) [Volum e fraction]Ordered By: Renard Burgos on 06-03-2024 Hematocrit (Bld) [Volume fraction] 40.1 % 40-54 [facility] Hemoglobin measurementOrdere d By: Renard Burgos on 06-03-2024 Hemoglobin (Bld) [Mass/Vol] 13.2 g/dL 13.0-16.5 [facility] Immature granulocytes/100 WB C Auto (Bld)Ordered By: Renard Burgos on 06-03-2024 Immature granulocytes/100 WBC (Bld) 0.400 % 0.0-0.9 [facility] Comment on above: IG% - Immature Granu locytes (promyelocytes, myelocytes and metamyelocytes) > 1% indicates that a LEFT SHIFT is Present. Lymphocytes Auto (Unsp spec) [#/Vol]Ordered By: Renard Burgos on 06-03-2024 Lymphocytes (Bld) [#/Vol] 1.94 10*3/uL 0.83-4.51 [facility] Lymphocytes/100 WBC Auto (Un sp spec)Ordered By: Renard Burgos on 06-03-2024 Lymphocytes/100 WBC (Bld) 15.7 % Low 19-41 [facility] MCV (mean corpuscular volume ) determinationOrdered By: Renard Burgos on 06-03-2024 MCV (RBC) [Entitic vol] 91.3 fL 80-94 [facility] Mean corpuscular hemoglobin (MCH) determinationOrdered By: Renard Burgos on 06-03-2024 MCH (RBC) [Entitic mass] 30.1 pg 27.0-32.0 [facility] Mean corpuscular hemoglobin concentration (MCHC) determinationOrdered By: Renard Burgos on 06-03-2024 MCHC (RBC) [Mass/Vol] 32.9 g/dL 32-36 [facility] Mean platelet volume determi nationOrdered By: Renard Burgos on 06-03-2024 Platelet mean volume (Bld) [Entitic vol] 11.1 fL 6.2-12.0 [facility] Monocyte percentageOrdered B y: Renard Burgos on 06-03-2024 Monocytes/100 WBC (Bld) 6.6 % 0-10 [facility] Neutrophil percentageOrdered By: Renard Burgos on 06-03-2024 Neutrophils/100 WBC (Bld) 76.5 % High 47-70 [facility] Nucleated red blood cell per centageOrdered By: Renard Burgos on 06-03-2024 Nucleated RBC/100 WBC (Bld) [Ratio] 0 % 0-5 [facility] Platelet countOrdered By: aGrrick Bhatt on 06-03-2024 Platelets (Bld) [#/Vol] 249 10*3/uL 150-450 [facility] RBC Auto (Bld) [#/Vol]Ordere d By: Renard Burgos on 06-03-2024 RBC (Bld) [#/Vol] 4.39 10*6/uL Low 4.6-6.2 [facility] White blood cell (WBC) count Ordered By: Renard Burgos on 06-03-2024 WBC (Bld) [#/Vol] 12.4 10*3/uL High 4.4-11.0 [facility] Absolute lymphocyte countOrd ered By: Renard Burgos on 05-27-2024 Lymphocytes Auto (Unsp spec) [#/Vol] 1.81 10*3/uL 0.83-4.51 [facility] Absolute neutrophil countOrd ered By: Renard Burgos on 05-27-2024 Neutrophils (Bld) [#/Vol] 5.0 10*3/uL 2.0-7.7 [facility] Automated lymphocyte count a s percentage of total leukocytesOrdered By: Renard Burgos on 05-27-2024 Lymphocytes/100 WBC Auto (Unsp spec) 24.4 % 19-41 [facility] Basophil percentageOrdered B y: Renard Burgos on 05-27-2024 Basophils/100 WBC (Bld) 0.5 % 0-1 W [facility] CBC W/Diff, Automatedon 05-02 Absolute Lymph 1.81 X10 3/uL Normal 0.83-4.51 [facility] Comment on above: Order Comment: 109.1 Performed By: #### L 100.0100 ####[facility] [address] [place], [address] Absolute Neut 5.0 X10 3/uL Normal 2.0-7.7 [facility] Comment on above: Order Comment: 109.1 Performed By: #### L 100.0100 ####[facility] [address] [place], [address] Basophils/100 WBC (Bld) 0.5 % Normal 0-1 [facility] Comment on above: Order Comment: 109.1 Performed By: #### L 100.0100 ####[facility] [address] [place], [address] Eosinophils/100 WBC (Bld) 0.5 % Normal 0-5 [facility] Comment on above: Order Comment: 109.1 Performed By: #### L 100.0100 ####[facility] [address] [place], [address] Erythrocyte distribution width (RBC) [Ratio] 12.8 % Normal 11.6-14.6 [facility] Comment on above: Order Comment: 109.1 Performed By: #### L 100.0100 ####[facility] [address] [place], [address] Hematocrit (Bld) [Volume fraction] 39.8 % Low 40-54 [facility] Comment on above: Order Comment: 109.1 Performed By: #### L 100.0100 ####[facility] [address] [place], [address] Hemoglobin (Bld) [Mass/Vol] 13.2 g/dL Normal 13.0-16.5 [facility] Comment on above: Order Comment: 109.1 Performed By: #### L 100.0100 ####[facility] [address] [place], [address] IG% 0.400 Normal 0.0-0.9 [facility] Comment on above: Order Comment: 109.1 Result Comment: IG% - Immature Granulocytes (promyelocytes, myelocytes andmetamyelocytes) > 1% indicates that a LEFT SHIFT is Present. Performed By: #### L 100.0100 ####[facility] [address] [place], [address] Lymphocytes/100 WBC (Bld) 24.4 % Normal 19-41 [facility] Comment on above: Order Comment: 109.1 Performed By: #### L 100.0100 ####[facility] [address], [address] MCH (RBC) [Entitic mass] 30.2 pg Normal 27.0-32.0 [facility] Comment on above: Order Comment: 109.1 Performed By: #### L 100.0100 ####[facility] [address] [place], [address] MCHC (RBC) [Mass/Vol] 33.2 g/dL Normal 32-36 [facility] Comment on above: Order Comment: 109.1 Performed By: #### L 100.0100 ####[facility] [address] [place], [address] MCV (RBC) [Entitic vol] 91.1 fL Normal 80-94 [facility] Comment on above: Order Comment: 109.1 Performed By: #### L 100.0100 ####[facility] [address] [place], [address] Monocytes/100 WBC (Bld) 7.0 % Normal 0-10 [facility] Comment on above: Order Comment: 109.1 Performed By: #### L 100.0100 ####[facility] [address] [place], [address] Neutrophils/100 WBC (Bld) 67.2 % Normal 47-70 [facility] Comment on above: Order Comment: 109.1 Performed By: #### L 100.0100 ####[facility] [address] [place], [address] Nucleated RBC (Bld) [#/Vol] 0 10*3/uL Normal 0-5 [facility] Comment on above: Order Comment: 109.1 Performed By: #### L 100.0100 ####[facility] [address] [place], [address] Platelet mean volume (Bld) [Entitic vol] 10.3 fL Normal 6.2-12.0 [facility] Comment on above: Order Comment: 109.1 Performed By: #### L 100.0100 ####[facility] [address] [place], [address] Platelets (Bld) [#/Vol] 239 10*3/uL Normal 150-450 [facility] Comment on above: Order Comment: 109.1 Performed By: #### L 100.0100 ####[facility] [address] [place], [address] RBC (Bld) [#/Vol] 4.37 10*6/uL Low 4.6-6.2 [facility] Comment on above: Order Comment: 109.1 Performed By: #### L 100.0100 ####[facility] [address] [place], [address] RDW SD 42.5 fl Normal 35.1-43.9 [facility] Comment on above: Order Comment: 109.1 Performed By: #### L 100.0100 ####[facility] [address] [place], [address] WBC (Bld) [#/Vol] 7.4 10*3/uL Normal 4.4-11.0 [facility] Comment on above: Order Comment: 109.1 Performed By: #### L 100.0100 ####[facility] [address] [place], [address] Eosinophil percentageOrdered By: Renard Burgos on 05-27-2024 Eosinophils/100 WBC (Bld) 0.5 % 0-5 [facility] Erythrocyte distribution wid th ratioOrdered By: Renard Burgos on 05-27-2024 Erythrocyte distribution width (RBC) [Ratio] 12.8 % 11.6-14.6 [facility] Erythrocyte distribution wid th standard deviationOrdered By: Renard Burgos on 05-27-2024 Erythrocyte distribution width (RBC) [Entitic vol] 42.5 fL 35.1-43.9 [facility] Erythrocyte distribution width (RBC) [Ratio] 42.5 fl 35.1-43.9 [facility] Hematocrit Auto (Bld) [Volum e fraction]Ordered By: Renard Burgos on 05-27-2024 Hematocrit (Bld) [Volume fraction] 39.8 % Low 40-54 [facility] Hemoglobin measurementOrdere d By: Renard Burgos on 05-27-2024 Hemoglobin (Bld) [Mass/Vol] 13.2 g/dL 13.0-16.5 [facility] Immature granulocytes/100 WB C Auto (Bld)Ordered By: Renard Burgos on 05-27-2024 Immature granulocytes/100 WBC (Bld) 0.400 % 0.0-0.9 [facility] Comment on above: IG% - Immature Granu locytes (promyelocytes, myelocytes and metamyelocytes) > 1% indicates that a LEFT SHIFT is Present. Lymphocytes Auto (Unsp spec) [#/Vol]Ordered By: Renard Burgos on 05-27-2024 Lymphocytes (Bld) [#/Vol] 1.81 10*3/uL 0.83-4.51 [facility] Lymphocytes/100 WBC Auto (Un sp spec)Ordered By: Renard Burgos on 05-27-2024 Lymphocytes/100 WBC (Bld) 24.4 % 19-41 [facility] MCV (mean corpuscular volume ) determinationOrdered By: Renard Burgos on 05-27-2024 MCV (RBC) [Entitic vol] 91.1 fL 80-94 [facility] Mean corpuscular hemoglobin (MCH) determinationOrdered By: Renard Burgos on 05-27-2024 MCH (RBC) [Entitic mass] 30.2 pg 27.0-32.0 [facility] Mean corpuscular hemoglobin concentration (MCHC) determinationOrdered By: Renard Burgos on 05-27-2024 MCHC (RBC) [Mass/Vol] 33.2 g/dL 32-36 [facility] Mean platelet volume determi nationOrdered By: Renard Burgos on 05-27-2024 Platelet mean volume (Bld) [Entitic vol] 10.3 fL 6.2-12.0 [facility] Monocyte percentageOrdered B y: Renard Burgos on 05-27-2024 Monocytes/100 WBC (Bld) 7.0 % 0-10 [facility] Neutrophil percentageOrdered By: Renard Burgos on 05-27-2024 Neutrophils/100 WBC (Bld) 67.2 % 47-70 [facility] Nucleated red blood cell per centageOrdered By: Renard Burgos on 05-27-2024 Nucleated RBC/100 WBC (Bld) [Ratio] 0 % 0-5 [facility] Platelet countOrdered By: Garrick Bhatt on 05-27-2024 Platelets (Bld) [#/Vol] 239 10*3/uL 150-450 [facility] RBC Auto (Bld) [#/Vol]Ordere d By: Renard Burgos on 05-27-2024 RBC (Bld) [#/Vol] 4.37 10*6/uL Low 4.6-6.2 [facility] White blood cell (WBC) count Ordered By: Renard Burgos on 05-27-2024 WBC (Bld) [#/Vol] 7.4 10*3/uL 4.4-11.0 [facility] Absolute lymphocyte countOrd ered By: Renard Burgos on 05-20-2024 Lymphocytes Auto (Unsp spec) [#/Vol] 1.73 10*3/uL 0.83-4.51 [facility] Absolute neutrophil countOrd ered By: Renard Burgos on 05-20-2024 Neutrophils (Bld) [#/Vol] 7.0 10*3/uL 2.0-7.7 [facility] Automated blood erythrocyte countOrdered By: Renard Burgos on 05-20-2024 RBC (Bld) [#/Vol] 4.74 10*6/uL Normal 4.6-6.2 [facility] Comment on above: Order Comment: 109-1 Performed By: #### L 100.0100 ####[facility] [address] [place], [address] Automated blood hematocrit ( percentage)Ordered By: Renard Burgos on 05-20-2024 Hematocrit (Bld) [Volume fraction] 43.6 % Normal 40-54 [facility] Comment on above: Order Comment: 109-1 Performed By: #### L 100.0100 ####[facility] [address] [place], [address] Automated lymphocyte count a s percentage of total leukocytesOrdered By: Renard Burgos on 05-20-2024 Lymphocytes/100 WBC (Bld) 17.7 % Low -41 [facility] Comment on above: Order Comment: 109-1 Performed By: #### L 100.0100 ####[facility] [address] [place], [address] Lymphocytes/100 WBC Auto (Unsp spec) 17.7 % Low - [facility] Basophil percentageOrdered B y: Renard Burgos on 05-20-2024 Basophils/100 WBC (Bld) 0.5 % Normal 0-1 [facility] Comment on above: Order Comment: 109-1 Performed By: #### L 100.0100 ####[facility] [address] [place], [address] CBC W/Diff, Automatedon 05-02 Absolute Lymph 1.73 X10 3/uL Normal 0.83-4.51 [facility] Comment on above: Order Comment: 109-1 Performed By: #### L 100.0100 ####[facility] [address] [place], [address] Absolute Neut 7.0 X10 3/uL Normal 2.0-7.7 [facility] Comment on above: Order Comment: 109-1 Performed By: #### L 100.0100 ####[facility] [address] [place], [address] IG% 0.500 Normal 0.0-0.9 [facility] Comment on above: Order Comment: 109-1 Result Comment: IG% - Immature Granulocytes (promyelocytes, myelocytes andmetamyelocytes) > 1% indicates that a LEFT SHIFT is Present. Performed By: #### L 100.0100 ####[facility] [address] [place], [address] Nucleated RBC (Bld) [#/Vol] 0 10*3/uL Normal 0-5 [facility] Comment on above: Order Comment: 109-1 Performed By: #### L 100.0100 ####[facility] [address] [place], [address] RDW SD 42.5 fl Normal 35.1-43.9 [facility] Comment on above: Order Comment: 109-1 Performed By: #### L 100.0100 ####[facility] [address] [place], [address] Eosinophil percentageOrdered By: Renard Burgos on 05-20-2024 Eosinophils/100 WBC (Bld) 0.5 % Normal 0-5 [facility] Comment on above: Order Comment: 109-1 Performed By: #### L 100.0100 ####[facility] [address] [place], [address] Erythrocyte distribution wid th ratioOrdered By: Renard Burgos on 05-20-2024 Erythrocyte distribution width (RBC) [Ratio] 12.6 % Normal 11.6-14.6 [facility] Comment on above: Order Comment: 109-1 Performed By: #### L 100.0100 ####[facility] [address] [place], [address] Erythrocyte distribution wid th standard deviationOrdered By: Renard Burgos on 05-20-2024 Erythrocyte distribution width (RBC) [Entitic vol] 42.5 fL 35.1-43.9 [facility] Erythrocyte distribution width (RBC) [Ratio] 42.5 fl 35.1-43.9 [facility] Hemoglobin measurementOrdere d By: Renard Burgos on 05-20-2024 Hemoglobin (Bld) [Mass/Vol] 14.4 g/dL Normal 13.0-16.5 [facility] Comment on above: Order Comment: 109- Performed By: #### L 100.0100 ####[facility] [address] [place], [place], [phone] Immature granulocytes/100 WB C Auto (Bld)Ordered By: Renard Burgos on 05-20-2024 Immature granulocytes/100 WBC (Bld) 0.500 % 0.0-0.9 [facility] Comment on above: IG% - Immature Granu locytes (promyelocytes, myelocytes and metamyelocytes) > 1% indicates that a LEFT SHIFT is Present. Lymphocytes Auto (Unsp spec) [#/Vol]Ordered By: Renard Burgos on 05-20-2024 Lymphocytes (Bld) [#/Vol] 1.73 10*3/uL 0.83-4.51 [facility] MCV (mean corpuscular volume ) determinationOrdered By: Renard Burgos on 05-20-2024 MCV (RBC) [Entitic vol] 92.0 fL Normal 80-94 [facility] Comment on above: Order Comment: 109- Performed By: #### L 100.0100 ####[facility] [address] [place], [place], [id number] Mean corpuscular hemoglobin (MCH) determinationOrdered By: Renard Burgos on 05-20-2024 MCH (RBC) [Entitic mass] 30.4 pg Normal 27.0-32.0 [facility] Comment on above: Order Comment: 109- Performed By: #### L 100.0100 ####[facility] [address] [place], [place], [phone] Mean corpuscular hemoglobin concentration (MCHC) determinationOrdered By: Renard Burgos on 05-20-2024 MCHC (RBC) [Mass/Vol] 33.0 g/dL Normal 32-36 [facility] Comment on above: Order Comment: 109-1 Performed By: #### L 100.0100 ####[facility] [address] [place], [address] Mean platelet volume determi nationOrdered By: Renard Burgos on 05-20-2024 Platelet mean volume (Bld) [Entitic vol] 10.7 fL Normal 6.2-12.0 [facility] Comment on above: Order Comment: 109-1 Performed By: #### L 100.0100 ####[facility] [address] [place], [address] Monocyte percentageOrdered B y: Renard Burgos on 05-20-2024 Monocytes/100 WBC (Bld) 9.4 % Normal 0-10 [facility] Comment on above: Order Comment: 109-1 Performed By: #### L 100.0100 ####[facility] [address] [place], [address] Neutrophil percentageOrdered By: Renard Burgos on 05-20-2024 Neutrophils/100 WBC (Bld) 71.4 % High 47-70 [facility] Comment on above: Order Comment: 109-1 Performed By: #### L 100.0100 ####[facility] [address] [place], [address] Nucleated red blood cell per centageOrdered By: Renard Burgos on 05-20-2024 Nucleated RBC/100 WBC (Bld) [Ratio] 0 % 0-5 [facility] Platelet countOrdered By: Garrick Bhatt on 05-20-2024 Platelets (Bld) [#/Vol] 239 10*3/uL Normal 150-450 [facility] Comment on above: Order Comment: 109-1 Performed By: #### L 100.0100 ####[facility] [address] [place], [address] White blood cell (WBC) count Ordered By: Renard Burgos on 05-20-2024 WBC (Bld) [#/Vol] 9.8 10*3/uL Normal 4.4-11.0 [facility] Comment on above: Order Comment: 109-1 Performed By: #### L 100.0100 ####[facility] [address] [place], [address] Absolute lymphocyte countOrd ered By: Renard Burgos on 05-13-2024 Lymphocytes Auto (Unsp spec) [#/Vol] 2.10 10*3/uL 0.83-4.51 [facility] Absolute neutrophil countOrd ered By: Renard Burgos on 05-13-2024 Neutrophils (Bld) [#/Vol] 6.2 10*3/uL 2.0-7.7 [facility] Automated lymphocyte count a s percentage of total leukocytesOrdered By: Renard Burgos on 05-13-2024 Lymphocytes/100 WBC Auto (Unsp spec) 22.8 % 19-41 [facility] Basophil percentageOrdered B y: Renard Burgos on 05-13-2024 Basophils/100 WBC (Bld) 0.5 % 0-1 [facility] CBC W/Diff, Automatedon 05-01 Absolute Lymph 2.10 X10 3/uL Normal 0.83-4.51 [facility] Comment on above: Order Comment: 109 Performed By: #### L 100.0100 ####[facility] [address] [place], [address] Absolute Neut 6.2 X10 3/uL Normal 2.0-7.7 [facility] Comment on above: Order Comment: 109 Performed By: #### L 100.0100 ####[facility] [address] [place], [address] Basophils/100 WBC (Bld) 0.5 % Normal 0-1 [facility] Comment on above: Order Comment: 109 Performed By: #### L 100.0100 ####[facility] [address] [place], [address] Eosinophils/100 WBC (Bld) 0.5 % Normal 0-5 [facility] Comment on above: Order Comment: 109 Performed By: #### L 100.0100 ####[facility] [address] [place], [address] Erythrocyte distribution width (RBC) [Ratio] 12.9 % Normal 11.6-14.6 [facility] Comment on above: Order Comment: 109 Performed By: #### L 100.0100 ####[facility] [address] [place], [address] Hematocrit (Bld) [Volume fraction] 42.5 % Normal 40-54 [facility] Comment on above: Order Comment: 109 Performed By: #### L 100.0100 ####[facility] [address] [place], [address] Hemoglobin (Bld) [Mass/Vol] 14.2 g/dL Normal 13.0-16.5 [facility] Comment on above: Order Comment: 109 Performed By: #### L 100.0100 ####[facility] [address] [place], [address] IG% 0.300 Normal 0.0-0.9 [facility] Comment on above: Order Comment: 109 Result Comment: IG% - Immature Granulocytes (promyelocytes, myelocytes andmetamyelocytes) > 1% indicates that a LEFT SHIFT is Present. Performed By: #### L 100.0100 ####[facility] [address] [place], [address] Lymphocytes/100 WBC (Bld) 22.8 % Normal 19-41 [facility] Comment on above: Order Comment: 109 Performed By: #### L 100.0100 ####[facility] [address] [place], [address] MCH (RBC) [Entitic mass] 30.3 pg Normal 27.0-32.0 [facility] Comment on above: Order Comment: 109 Performed By: #### L 100.0100 ####[facility] [address] [place], [address] MCHC (RBC) [Mass/Vol] 33.4 g/dL Normal 32-36 [facility] Comment on above: Order Comment: 109 Performed By: #### L 100.0100 ####[facility] [address] [place], [address] MCV (RBC) [Entitic vol] 90.6 fL Normal 80-94 [facility] Comment on above: Order Comment: 109 Performed By: #### L 100.0100 ####[facility] [address] [place], [address] Monocytes/100 WBC (Bld) 8.7 % Normal 0-10 [facility] Comment on above: Order Comment: 109 Performed By: #### L 100.0100 ####[facility] [address] [place], [address] Neutrophils/100 WBC (Bld) 67.2 % Normal 47-70 [facility] Comment on above: Order Comment: 109 Performed By: #### L 100.0100 ####[facility] [address] [place], [address] Nucleated RBC (Bld) [#/Vol] 0 10*3/uL Normal 0-5 [facility] Comment on above: Order Comment: 109 Performed By: #### L 100.0100 ####[facility] [address] [place], [address] Platelet mean volume (Bld) [Entitic vol] 11.1 fL Normal 6.2-12.0 [facility] Comment on above: Order Comment: 109 Performed By: #### L 100.0100 ####[facility] [address] [place], [address] Platelets (Bld) [#/Vol] 218 10*3/uL Normal 150-450 [facility] Comment on above: Order Comment: 109 Performed By: #### L 100.0100 ####[facility] [address] [place], [address] RBC (Bld) [#/Vol] 4.69 10*6/uL Normal 4.6-6.2 [facility] Comment on above: Order Comment: 109 Performed By: #### L 100.0100 ####[facility] [address] [place], [address] RDW SD 42.3 fl Normal 35.1-43.9 [facility] Comment on above: Order Comment: 109 Performed By: #### L 100.0100 ####[facility] [address] [place], [address] WBC (Bld) [#/Vol] 9.2 10*3/uL Normal 4.4-11.0 [facility] Comment on above: Order Comment: 109 Performed By: #### L 100.0100 ####[facility] [address] [place], [address] Eosinophil percentageOrdered By: Renard Burgos on 05-13-2024 Eosinophils/100 WBC (Bld) 0.5 % 0-5 [facility] Erythrocyte distribution wid th ratioOrdered By: Renard Burgos on 05-13-2024 Erythrocyte distribution width (RBC) [Ratio] 12.9 % 11.6-14.6 [facility] Erythrocyte distribution wid th standard deviationOrdered By: Renard Burgos on 05-13-2024 Erythrocyte distribution width (RBC) [Entitic vol] 42.3 fL 35.1-43.9 [facility] Erythrocyte distribution width (RBC) [Ratio] 42.3 fl 35.1-43.9 [facility] Hematocrit Auto (Bld) [Volum e fraction]Ordered By: Renard Burgos on 05-13-2024 Hematocrit (Bld) [Volume fraction] 42.5 % 40-54 [facility] Hemoglobin measurementOrdere d By: Renard Burgos on 05-13-2024 Hemoglobin (Bld) [Mass/Vol] 14.2 g/dL 13.0-16.5 [facility] Immature granulocytes/100 WB C Auto (Bld)Ordered By: Renard Burgos on 05-13-2024 Immature granulocytes/100 WBC (Bld) 0.300 % 0.0-0.9 [facility] Comment on above: IG% - Immature Granu locytes (promyelocytes, myelocytes and metamyelocytes) > 1% indicates that a LEFT SHIFT is Present. Lymphocytes Auto (Unsp spec) [#/Vol]Ordered By: Renard Burgos on 05-13-2024 Lymphocytes (Bld) [#/Vol] 2.10 10*3/uL 0.83-4.51 [facility] Lymphocytes/100 WBC Auto (Un sp spec)Ordered By: Renard Burgos on 05-13-2024 Lymphocytes/100 WBC (Bld) 22.8 % 19-41 [facility] MCV (mean corpuscular volume ) determinationOrdered By: Renard Burgos on 05-13-2024 MCV (RBC) [Entitic vol] 90.6 fL 80-94 [facility] Mean corpuscular hemoglobin (MCH) determinationOrdered By: Renard Burgos on 05-13-2024 MCH (RBC) [Entitic mass] 30.3 pg 27.0-32.0 [facility] Mean corpuscular hemoglobin concentration (MCHC) determinationOrdered By: Renard Burgos on 05-13-2024 MCHC (RBC) [Mass/Vol] 33.4 g/dL 32-36 [facility] Mean platelet volume determi nationOrdered By: Renard Burgos on 05-13-2024 Platelet mean volume (Bld) [Entitic vol] 11.1 fL 6.2-12.0 [facility] Monocyte percentageOrdered B y: Renard Burgos on 05-13-2024 Monocytes/100 WBC (Bld) 8.7 % 0-10 [facility] Neutrophil percentageOrdered By: Renard Burgos on 05-13-2024 Neutrophils/100 WBC (Bld) 67.2 % 47-70 [facility] Nucleated red blood cell per centageOrdered By: Renard Burgos on 05-13-2024 Nucleated RBC/100 WBC (Bld) [Ratio] 0 % 0-5 [facility] Platelet countOrdered By: Garrick Bhatt on 05-13-2024 Platelets (Bld) [#/Vol] 218 10*3/uL 150-450 [facility] RBC Auto (Bld) [#/Vol]Ordere d By: Renard Burgos on 05-13-2024 RBC (Bld) [#/Vol] 4.69 10*6/uL 4.6-6.2 [facility] White blood cell (WBC) count Ordered By: Renard Burgos on 05-13-2024 WBC (Bld) [#/Vol] 9.2 10*3/uL 4.4-11.0 [facility] Absolute neutrophil countOrd ered By: Renard Burgos on 05-06-2024 Neutrophils (Bld) [#/Vol] 5.9 10*3/uL 2.0-7.7 [facility] Automated blood erythrocyte countOrdered By: Renard Burgos on 05-06-2024 RBC (Bld) [#/Vol] 4.85 10*6/uL Normal 4.6-6.2 [facility] Comment on above: Order Comment: 109-1 Performed By: #### L 100.0100 ####[facility] [address] [place], [place], [address] Automated blood hematocrit ( percentage)Ordered By: Renard Burgos on 05-06-2024 Hematocrit (Bld) [Volume fraction] 45.0 % Normal 40-54 [facility] Comment on above: Order Comment: 109-1 Performed By: #### L 100.0100 ####[facility] [address] [place], [place], [address] Automated lymphocyte count a s percentage of total leukocytesOrdered By: Renard Burgos on 05-06-2024 Lymphocytes/100 WBC (Bld) 24.4 % Normal 19-41 [facility] Comment on above: Order Comment: 109-1 Performed By: #### L 100.0100 ####[facility] [address] [place], [address] Basophil percentageOrdered B y: Renard Burgos on 05-06-2024 Basophils/100 WBC (Bld) 0.5 % Normal 0-1 [facility] Comment on above: Order Comment: 109-1 Performed By: #### L 100.0100 ####[facility] [address] [place], [address] CBC W/Diff, Automatedon Absolute Lymph 2.22 X10 3/uL Normal 0.83-4.51 [facility] Comment on above: Order Comment: 109-1 Performed By: #### L 100.0100 ####[facility] [address] [place], [address] Absolute Neut 5.9 X10 3/uL Normal 2.0-7.7 [facility] Comment on above: Order Comment: 109-1 Performed By: #### L 100.0100 ####[facility] [address] [place], [address] IG% 0.500 Normal 0.0-0.9 [facility] Comment on above: Order Comment: 109-1 Result Comment: IG% - Immature Granulocytes (promyelocytes, myelocytes andmetamyelocytes) > 1% indicates that a LEFT SHIFT is Present. Performed By: #### L 100.0100 ####[facility] [address] [place], [address] Nucleated RBC (Bld) [#/Vol] 0 10*3/uL Normal 0-5 [facility] Comment on above: Order Comment: 109-1 Performed By: #### L 100.0100 ####[facility] [address] [place], [address] RDW SD 43.9 fl Normal 35.1-43.9 [facility] Comment on above: Order Comment: 109-1 Performed By: #### L 100.0100 ####[facility] [address] [place], [address] Eosinophil percentageOrdered By: Renard Burgos on 05-06-2024 Eosinophils/100 WBC (Bld) 0.4 % Normal 0-5 [facility] Comment on above: Order Comment: 109-1 Performed By: #### L 100.0100 ####[facility] [address] [place], [address] Erythrocyte distribution wid th ratioOrdered By: Renard Burgos on 05-06-2024 Erythrocyte distribution width (RBC) [Ratio] 13.0 % Normal 11.6-14.6 [facility] Comment on above: Order Comment: 109-1 Performed By: #### L 100.0100 ####[facility] [address] [place], [address] Erythrocyte distribution wid th standard deviationOrdered By: Renard Burgos on 05-06-2024 Erythrocyte distribution width (RBC) [Entitic vol] 43.9 fL 35.1-43.9 [facility] Hemoglobin measurementOrdere d By: Renard Burgos on 05-06-2024 Hemoglobin (Bld) [Mass/Vol] 14.5 g/dL Normal 13.0-16.5 [facility] Comment on above: Order Comment: 109- Performed By: #### L 100.0100 ####[facility] [address] [place], [address] Immature granulocytes/100 WB C Auto (Bld)Ordered By: Renard Burgos on 05-06-2024 Immature granulocytes/100 WBC (Bld) 0.500 % 0.0-0.9 [facility] Comment on above: IG% - Immature Granu locytes (promyelocytes, myelocytes and metamyelocytes) > 1% indicates that a LEFT SHIFT is Present. Lymphocytes Auto (Unsp spec) [#/Vol]Ordered By: Renard Burgos on 05-06-2024 Lymphocytes (Bld) [#/Vol] 2.22 10*3/uL 0.83-4.51 [facility] MCV (mean corpuscular volume ) determinationOrdered By: Renard Burgos on 05-06-2024 MCV (RBC) [Entitic vol] 92.8 fL Normal 80-94 [facility] Comment on above: Order Comment: 109-1 Performed By: #### L 100.0100 ####[facility] [address] [place], [place], [phone] Mean corpuscular hemoglobin (MCH) determinationOrdered By: Renard Burgos on 05-06-2024 MCH (RBC) [Entitic mass] 29.9 pg Normal 27.0-32.0 [facility] Comment on above: Order Comment: 109-1 Performed By: #### L 100.0100 ####[facility] [address] [place], [place], [phone] Mean corpuscular hemoglobin concentration (MCHC) determinationOrdered By: Renard Burgos on 05-06-2024 MCHC (RBC) [Mass/Vol] 32.2 g/dL Normal 32-36 [facility] Comment on above: Order Comment: 109-1 Performed By: #### L 100.0100 ####[facility] [address] [place], [address] Mean platelet volume determi nationOrdered By: Renard Burgos on 05-06-2024 Platelet mean volume (Bld) [Entitic vol] 11.4 fL Normal 6.2-12.0 [facility] Comment on above: Order Comment: 109-1 Performed By: #### L 100.0100 ####[facility] [address] [place], [place], [phone] Monocyte percentageOrdered B y: Renard Burgos on 05-06-2024 Monocytes/100 WBC (Bld) 9.7 % Normal 0-10 [facility] Comment on above: Order Comment: 109-1 Performed By: #### L 100.0100 ####[facility] [address] [place], [address] Neutrophil percentageOrdered By: Renard Burgos on 05-06-2024 Neutrophils/100 WBC (Bld) 64.5 % Normal 47-70 [facility] Comment on above: Order Comment: 109-1 Performed By: #### L 100.0100 ####[facility] [address] [place], [address] Nucleated red blood cell per centageOrdered By: Renard Burgos on 05-06-2024 Nucleated RBC/100 WBC (Bld) [Ratio] 0 % 0-5 [facility] Platelet countOrdered By: Garrick Bhatt on 05-06-2024 Platelets (Bld) [#/Vol] 201 10*3/uL Normal 150-450 [facility] Comment on above: Order Comment: 109-1 Performed By: #### L 100.0100 ####[facility] [address] [place], [address] White blood cell (WBC) count Ordered By: Renard Burgos on 05-06-2024 WBC (Bld) [#/Vol] 9.1 10*3/uL Normal 4.4-11.0 [facility] Comment on above: Order Comment: 109-1 Performed By: #### L 100.0100 ####[facility] [address] [place], [address] 36on 05-03-2024 36 Gissel is calling to let Dr. Burgos know that the medication he prescribed he not certified, she is going to fax the information to the office. [phone] Normal [facility] Absolute neutrophil countOrd ered By: Renard Burgos on 04-29-2024 Neutrophils (Bld) [#/Vol] 6.3 10*3/uL 2.0-7.7 [facility] Basophil percentageOrdered B y: Renard Burgos on 04-29-2024 Basophils/100 WBC (Bld) 0.4 % 0-1 [facility] CBC W/Diff, Automatedon 12-3 0-4 Absolute Lymph 2.11 X10 3/uL Normal 0.83-4.51 [facility] Comment on above: Order Comment: 109.1 Performed By: #### L 100.0100 ####[facility] [address] [place], [address] Absolute Neut 6.3 X10 3/uL Normal 2.0-7.7 [facility] Comment on above: Order Comment: 109.1 Performed By: #### L 100.0100 ####[facility] [address] [place], [address] Basophils/100 WBC (Bld) 0.4 % Normal 0-1 [facility] Comment on above: Order Comment: 109.1 Performed By: #### L 100.0100 ####[facility] [address] [place], [address] Eosinophils/100 WBC (Bld) 0.4 % Normal 0-5 [facility] Comment on above: Order Comment: 109.1 Performed By: #### L 100.0100 ####[facility] [address] [place], [address] Erythrocyte distribution width (RBC) [Ratio] 12.6 % Normal 11.6-14.6 [facility] Comment on above: Order Comment: 109.1 Performed By: #### L 100.0100 ####[facility] [address] [place], [address] Hematocrit (Bld) [Volume fraction] 41.6 % Normal 40-54 [facility] Comment on above: Order Comment: 109.1 Performed By: #### L 100.0100 ####[facility] [address] [place], [address] Hemoglobin (Bld) [Mass/Vol] 13.7 g/dL Normal 13.0-16.5 [facility] Comment on above: Order Comment: 109.1 Performed By: #### L 100.0100 ####[facility] [address] [place], [address] IG% 0.400 Normal 0.0-0.9 [facility] Comment on above: Order Comment: 109.1 Result Comment: IG% - Immature Granulocytes (promyelocytes, myelocytes andmetamyelocytes) > 1% indicates that a LEFT SHIFT is Present. Performed By: #### L 100.0100 ####[facility] [address] [place], [address] Lymphocytes/100 WBC (Bld) 22.6 % Normal 19-41 [facility] Comment on above: Order Comment: 109.1 Performed By: #### L 100.0100 ####[facility] [address] [place], [address] MCH (RBC) [Entitic mass] 30.1 pg Normal 27.0-32.0 [facility] Comment on above: Order Comment: 109.1 Performed By: #### L 100.0100 ####[facility] [address] [place], [address] MCHC (RBC) [Mass/Vol] 32.9 g/dL Normal 32-36 [facility] Comment on above: Order Comment: 109.1 Performed By: #### L 100.0100 ####[facility] [address] [place], [address] MCV (RBC) [Entitic vol] 91.4 fL Normal 80-94 [facility] Comment on above: Order Comment: 109.1 Performed By: #### L 100.0100 ####[facility] [address] [place], [address] Monocytes/100 WBC (Bld) 9.3 % Normal 0-10 [facility] Comment on above: Order Comment: 109.1 Performed By: #### L 100.0100 ####[facility] [address] [place], [address] Neutrophils/100 WBC (Bld) 66.9 % Normal 47-70 [facility] Comment on above: Order Comment: 109.1 Performed By: #### L 100.0100 ####[facility] [address] [place], [address] Nucleated RBC (Bld) [#/Vol] 0 10*3/uL Normal 0-5 [facility] Comment on above: Order Comment: 109.1 Performed By: #### L 100.0100 ####[facility] [address] [place], [address] Platelet mean volume (Bld) [Entitic vol] 11.0 fL Normal 6.2-12.0 [facility] Comment on above: Order Comment: 109.1 Performed By: #### L 100.0100 ####[facility] [address] [place], [address] Platelets (Bld) [#/Vol] 211 10*3/uL Normal 150-450 [facility] Comment on above: Order Comment: 109.1 Performed By: #### L 100.0100 ####[facility] [address] [place], [address] RBC (Bld) [#/Vol] 4.55 10*6/uL Low 4.6-6.2 [facility] Comment on above: Order Comment: 109.1 Performed By: #### L 100.0100 ####[facility] [address] [place], [address] RDW SD 41.5 fl Normal 35.1-43.9 [facility] Comment on above: Order Comment: 109.1 Performed By: #### L 100.0100 ####[facility] [address] [place], [address] WBC (Bld) [#/Vol] 9.4 10*3/uL Normal 4.4-11.0 [facility] Comment on above: Order Comment: 109.1 Performed By: #### L 100.0100 ####[facility] [address] [place], [address] Eosinophil percentageOrdered By: Renard Burgos on 04-29-2024 Eosinophils/100 WBC (Bld) 0.4 % 0-5 [facility] Erythrocyte distribution wid th ratioOrdered By: Renard Burgos on 04-29-2024 Erythrocyte distribution width (RBC) [Ratio] 12.6 % 11.6-14.6 [facility] Erythrocyte distribution wid th standard deviationOrdered By: Renard Burgos on 04-29-2024 Erythrocyte distribution width (RBC) [Entitic vol] 41.5 fL 35.1-43.9 [facility] Hematocrit Auto (Bld) [Volum e fraction]Ordered By: Renard Burgos on 04-29-2024 Hematocrit (Bld) [Volume fraction] 41.6 % 40-54 [facility] Hemoglobin measurementOrdere d By: Renard Burgos on 04-29-2024 Hemoglobin (Bld) [Mass/Vol] 13.7 g/dL 13.0-16.5 [facility] Immature granulocytes/100 WB C Auto (Bld)Ordered By: Renard Burgos on 04-29-2024 Immature granulocytes/100 WBC (Bld) 0.400 % 0.0-0.9 [facility] Comment on above: IG% - Immature Granu locytes (promyelocytes, myelocytes and metamyelocytes) > 1% indicates that a LEFT SHIFT is Present. Lymphocytes Auto (Unsp spec) [#/Vol]Ordered By: Renard Burgos on 04-29-2024 Lymphocytes (Bld) [#/Vol] 2.11 10*3/uL 0.83-4.51 [facility] Lymphocytes/100 WBC Auto (Un sp spec)Ordered By: Renard Burgos on 04-29-2024 Lymphocytes/100 WBC (Bld) 22.6 % 19-41 [facility] MCV (mean corpuscular volume ) determinationOrdered By: Renard Burgos on 04-29-2024 MCV (RBC) [Entitic vol] 91.4 fL 80-94 [facility] Mean corpuscular hemoglobin (MCH) determinationOrdered By: Renard Burgos on 04-29-2024 MCH (RBC) [Entitic mass] 30.1 pg 27.0-32.0 [facility] Mean corpuscular hemoglobin concentration (MCHC) determinationOrdered By: Renard Burgos on 04-29-2024 MCHC (RBC) [Mass/Vol] 32.9 g/dL 32-36 [facility] Mean platelet volume determi nationOrdered By: Renard Burgos on 04-29-2024 Platelet mean volume (Bld) [Entitic vol] 11.0 fL 6.2-12.0 [facility] Monocyte percentageOrdered B y: Renard Burgos on 04-29-2024 Monocytes/100 WBC (Bld) 9.3 % 0-10 [facility] Neutrophil percentageOrdered By: Renard Burgos on 04-29-2024 Neutrophils/100 WBC (Bld) 66.9 % 47-70 [facility] Nucleated red blood cell per centageOrdered By: Renard Burgos on 04-29-2024 Nucleated RBC/100 WBC (Bld) [Ratio] 0 % 0-5 [facility] Platelet countOrdered By: Garrick Bhatt on 04-29-2024 Platelets (Bld) [#/Vol] 211 10*3/uL 150-450 [facility] RBC Auto (Bld) [#/Vol]Ordere d By: Renard Burgos on 04-29-2024 RBC (Bld) [#/Vol] 4.55 10*6/uL Low 4.6-6.2 [facility] White blood cell (WBC) count Ordered By: Renard Burgos on 04-29-2024 WBC (Bld) [#/Vol] 9.4 10*3/uL 4.4-11.0 [facility] Absolute neutrophil countOrd ered By: Renard Burgos on 04-22-2024 Neutrophils (Bld) [#/Vol] 8.1 10*3/uL High 2.0-7.7 [facility] Basophil percentageOrdered B y: Renard Burgos on 04-22-2024 Basophils/100 WBC (Bld) 0.5 % 0-1 [facility] CBC W/Diff, Automatedon 12-2 Absolute Lymph 2.61 X10 3/uL Normal 0.83-4.51 [facility] Comment on above: Order Comment: 109-1 Performed By: #### L 100.0100 ####[facility] [address] [place], [address] Absolute Neut 8.1 X10 3/uL High 2.0-7.7 [facility] Comment on above: Order Comment: 109-1 Performed By: #### L 100.0100 ####[facility] [address] [place], [address] Basophils/100 WBC (Bld) 0.5 % Normal 0-1 [facility] Comment on above: Order Comment: 109-1 Performed By: #### L 100.0100 ####[facility] [address] [place], [address] Eosinophils/100 WBC (Bld) 0.4 % Normal 0-5 [facility] Comment on above: Order Comment: 109-1 Performed By: #### L 100.0100 ####[facility] [address] [place], [address] Erythrocyte distribution width (RBC) [Ratio] 12.6 % Normal 11.6-14.6 [facility] Comment on above: Order Comment: 109-1 Performed By: #### L 100.0100 ####[facility] [address] [place], [address] Hematocrit (Bld) [Volume fraction] 44.5 % Normal 40-54 [facility] Comment on above: Order Comment: 109-1 Performed By: #### L 100.0100 ####[facility] [address] [place], [address] Hemoglobin (Bld) [Mass/Vol] 14.3 g/dL Normal 13.0-16.5 [facility] Comment on above: Order Comment: 109-1 Performed By: #### L 100.0100 ####[facility] [address] [place], [address] IG% 0.300 Normal 0.0-0.9 [facility] Comment on above: Order Comment: 109-1 Result Comment: IG% - Immature Granulocytes (promyelocytes, myelocytes andmetamyelocytes) > 1% indicates that a LEFT SHIFT is Present. Performed By: #### L 100.0100 ####[facility] [address] [place], [address] Lymphocytes/100 WBC (Bld) 22.0 % Normal 19-41 [facility] Comment on above: Order Comment: 109-1 Performed By: #### L 100.0100 ####[facility] [address] [place], [address] MCH (RBC) [Entitic mass] 29.7 pg Normal 27.0-32.0 [facility] Comment on above: Order Comment: 109-1 Performed By: #### L 100.0100 ####[facility] [address] [place], [address] MCHC (RBC) [Mass/Vol] 32.1 g/dL Normal 32-36 [facility] Comment on above: Order Comment: 109-1 Performed By: #### L 100.0100 ####[facility] [address] [place], [address] MCV (RBC) [Entitic vol] 92.5 fL Normal 80-94 [facility] Comment on above: Order Comment: 109-1 Performed By: #### L 100.0100 ####[facility] [address] [place], [address] Monocytes/100 WBC (Bld) 8.3 % Normal 0-10 [facility] Comment on above: Order Comment: 109-1 Performed By: #### L 100.0100 ####[facility] [address] [place], [address] Neutrophils/100 WBC (Bld) 68.5 % Normal 47-70 [facility] Comment on above: Order Comment: 109-1 Performed By: #### L 100.0100 ####[facility] [address] [place], [address] Nucleated RBC (Bld) [#/Vol] 0 10*3/uL Normal 0-5 [facility] Comment on above: Order Comment: 109-1 Performed By: #### L 100.0100 ####[facility] [address] [place], [address] Platelet mean volume (Bld) [Entitic vol] 11.0 fL Normal 6.2-12.0 [facility] Comment on above: Order Comment: 109-1 Performed By: #### L 100.0100 ####[facility] [address] [place], [address] Platelets (Bld) [#/Vol] 190 10*3/uL Normal 150-450 [facility] Comment on above: Order Comment: 109-1 Performed By: #### L 100.0100 ####[facility] [address] [place], [address] RBC (Bld) [#/Vol] 4.81 10*6/uL Normal 4.6-6.2 [facility] Comment on above: Order Comment: 109-1 Performed By: #### L 100.0100 ####[facility] [address] [place], [address] RDW SD 43.0 fl Normal 35.1-43.9 [facility] Comment on above: Order Comment: 109-1 Performed By: #### L 100.0100 ####[facility] [address] [place], [address] WBC (Bld) [#/Vol] 11.9 10*3/uL High 4.4-11.0 [facility] Comment on above: Order Comment: 109-1 Performed By: #### L 100.0100 ####[facility] [address] [place], [address] Eosinophil percentageOrdered By: Renard Burgos on 04-22-2024 Eosinophils/100 WBC (Bld) 0.4 % 0-5 [facility] Erythrocyte distribution wid th ratioOrdered By: Renard Burgos on 04-22-2024 Erythrocyte distribution width (RBC) [Ratio] 12.6 % 11.6-14.6 [facility] Erythrocyte distribution wid th standard deviationOrdered By: Renard Burgos on 04-22-2024 Erythrocyte distribution width (RBC) [Entitic vol] 43.0 fL 35.1-43.9 [facility] Hematocrit Auto (Bld) [Volum e fraction]Ordered By: Renard Burgos on 04-22-2024 Hematocrit (Bld) [Volume fraction] 44.5 % 40-54 [facility] Hemoglobin measurementOrdere d By: Renard Burgos on 04-22-2024 Hemoglobin (Bld) [Mass/Vol] 14.3 g/dL 13.0-16.5 [facility] Immature granulocytes/100 WB C Auto (Bld)Ordered By: Renard Burgos on 04-22-2024 Immature granulocytes/100 WBC (Bld) 0.300 % 0.0-0.9 [facility] Comment on above: IG% - Immature Granu locytes (promyelocytes, myelocytes and metamyelocytes) > 1% indicates that a LEFT SHIFT is Present. Lymphocytes Auto (Unsp spec) [#/Vol]Ordered By: Renard Burgos on 04-22-2024 Lymphocytes (Bld) [#/Vol] 2.61 10*3/uL 0.83-4.51 [facility] Lymphocytes/100 WBC Auto (Un sp spec)Ordered By: Renard Burgos on 04-22-2024 Lymphocytes/100 WBC (Bld) 22.0 % 19-41 [facility] MCV (mean corpuscular volume ) determinationOrdered By: Renard Burgos on 04-22-2024 MCV (RBC) [Entitic vol] 92.5 fL 80-94 [facility] Mean corpuscular hemoglobin (MCH) determinationOrdered By: Renard Burgos on 04-22-2024 MCH (RBC) [Entitic mass] 29.7 pg 27.0-32.0 [facility] Mean corpuscular hemoglobin concentration (MCHC) determinationOrdered By: Renard Burgos on 04-22-2024 MCHC (RBC) [Mass/Vol] 32.1 g/dL 32-36 [facility] Mean platelet volume determi nationOrdered By: Renard Burgos on 04-22-2024 Platelet mean volume (Bld) [Entitic vol] 11.0 fL 6.2-12.0 [facility] Monocyte percentageOrdered B y: Renard Burgos on 04-22-2024 Monocytes/100 WBC (Bld) 8.3 % 0-10 [facility] Neutrophil percentageOrdered By: Renard Burgos on 04-22-2024 Neutrophils/100 WBC (Bld) 68.5 % 47-70 [facility] Nucleated red blood cell per centageOrdered By: Renard Burgos on 04-22-2024 Nucleated RBC/100 WBC (Bld) [Ratio] 0 % 0-5 [facility] Platelet countOrdered By: Garrick Bhatt on 04-22-2024 Platelets (Bld) [#/Vol] 190 10*3/uL 150-450 [facility] RBC Auto (Bld) [#/Vol]Ordere d By: Renard Burgos on 04-22-2024 RBC (Bld) [#/Vol] 4.81 10*6/uL 4.6-6.2 [facility] White blood cell (WBC) count Ordered By: Renard Burgos on 04-22-2024 WBC (Bld) [#/Vol] 11.9 10*3/uL High 4.4-11.0 [facility] Absolute neutrophil countOrd ered By: Renard Burgos on 04-15-2024 Neutrophils (Bld) [#/Vol] 8.7 10*3/uL High 2.0-7.7 [facility] Basophil percentageOrdered B y: Renard Burgos on 04-15-2024 Basophils/100 WBC (Bld) 0.3 % 0-1 [facility] Bilirubin, totalOrdered By: Renard Burgos on 04-15-2024 Bilirubin [Mass/Vol] 0.30 mg/dL 0.20-1.00 [facility] Comment on above: For patients on eltr ombopag therapy, use of Dimension [place] TBIL is not recommended. Bilirubin.direct [Mass/Vol]O rdered By: Renard Burgos on 04-15-2024 Direct Bilirubin < 0.05 mg/dL 0.00-0.30 [facility] CBC W/Diff, Automatedon 03-31 Absolute Lymph 1.93 X10 3/uL Normal 0.83-4.51 [facility] Comment on above: Order Comment: 109-1 Performed By: #### L 100.0100, L500.3400 ####[facility] [address] [place], [address] Absolute Neut 8.7 X10 3/uL High 2.0-7.7 [facility] Comment on above: Order Comment: 109-1 Performed By: #### L 100.0100, L500.3400 ####[facility] [address] [place], [address] Basophils/100 WBC (Bld) 0.3 % Normal 0-1 [facility] Comment on above: Order Comment: 109-1 Performed By: #### L 100.0100, L500.3400 ####[facility] [address] [place], [address] Eosinophils/100 WBC (Bld) 0.4 % Normal 0-5 [facility] Comment on above: Order Comment: 109-1 Performed By: #### L 100.0100, L500.3400 ####[facility] [address] [place], [address] Erythrocyte distribution width (RBC) [Ratio] 12.8 % Normal 11.6-14.6 [facility] Comment on above: Order Comment: 109-1 Performed By: #### L 100.0100, L500.3400 ####[facility] [address] [place], [address] Hematocrit (Bld) [Volume fraction] 42.5 % Normal 40-54 [facility] Comment on above: Order Comment: 109-1 Performed By: #### L 100.0100, L500.3400 ####[facility] [address] [place], [address] Hemoglobin (Bld) [Mass/Vol] 13.7 g/dL Normal 13.0-16.5 [facility] Comment on above: Order Comment: 109-1 Performed By: #### L 100.0100, L500.3400 ####[facility] [address] [place], [address] IG% 0.400 Normal 0.0-0.9 [facility] Comment on above: Order Comment: 109-1 Result Comment: IG% - Immature Granulocytes (promyelocytes, myelocytes andmetamyelocytes) > 1% indicates that a LEFT SHIFT is Present. Performed By: #### L 100.0100, L500.3400 ####[facility] [address] [place], [address] Lymphocytes/100 WBC (Bld) 16.9 % Low 19-41 [facility] Comment on above: Order Comment: 109-1 Performed By: #### L 100.0100, L500.3400 ####[facility] [address] [place], [address] MCH (RBC) [Entitic mass] 29.5 pg Normal 27.0-32.0 [facility] Comment on above: Order Comment: 109-1 Performed By: #### L 100.0100, L500.3400 ####[facility] [address] [place], [address] MCHC (RBC) [Mass/Vol] 32.2 g/dL Normal 32-36 [facility] Comment on above: Order Comment: 109-1 Performed By: #### L 100.0100, L500.3400 ####[facility] [address] [place], [address] MCV (RBC) [Entitic vol] 91.6 fL Normal 80-94 [facility] Comment on above: Order Comment: 109-1 Performed By: #### L 100.0100, L500.3400 ####[facility] [address] [place], [address] Monocytes/100 WBC (Bld) 6.0 % Normal 0-10 [facility] Comment on above: Order Comment: 109-1 Performed By: #### L 100.0100, L500.3400 ####[facility] [address] [place], [address] Neutrophils/100 WBC (Bld) 76.0 % High 47-70 [facility] Comment on above: Order Comment: 109-1 Performed By: #### L 100.0100, L500.3400 ####[facility] [address] [place], [address] Nucleated RBC (Bld) [#/Vol] 0 10*3/uL Normal 0-5 [facility] Comment on above: Order Comment: 109-1 Performed By: #### L 100.0100, L500.3400 ####[facility] [address] [place], [address] Platelet mean volume (Bld) [Entitic vol] 11.1 fL Normal 6.2-12.0 [facility] Comment on above: Order Comment: 109-1 Performed By: #### L 100.0100, L500.3400 ####[facility] [address] [place], [address] Platelets (Bld) [#/Vol] 197 10*3/uL Normal 150-450 [facility] Comment on above: Order Comment: 109-1 Performed By: #### L 100.0100, L500.3400 ####[facility] [address] [place], [address] RBC (Bld) [#/Vol] 4.64 10*6/uL Normal 4.6-6.2 [facility] Comment on above: Order Comment: 109-1 Performed By: #### L 100.0100, L500.3400 ####[facility] [address] [place], [address] RDW SD 42.5 fl Normal 35.1-43.9 [facility] Comment on above: Order Comment: 109-1 Performed By: #### L 100.0100, L500.3400 ####[facility] [address] [place], [address] WBC (Bld) [#/Vol] 11.4 10*3/uL High 4.4-11.0 [facility] Comment on above: Order Comment: 109-1 Performed By: #### L 100.0100, L500.3400 ####[facility] [address] [place], [address] Eosinophil percentageOrdered By: Renard Burgos on 04-15-2024 Eosinophils/100 WBC (Bld) 0.4 % 0-5 [facility] Erythrocyte distribution wid th ratioOrdered By: Renard Burgos on 04-15-2024 Erythrocyte distribution width (RBC) [Ratio] 12.8 % 11.6-14.6 [facility] Erythrocyte distribution wid th standard deviationOrdered By: Renard Burgos on 04-15-2024 Erythrocyte distribution width (RBC) [Entitic vol] 42.5 fL 35.1-43.9 [facility] Hematocrit Auto (Bld) [Volum e fraction]Ordered By: Renard Burgos on 04-15-2024 Hematocrit (Bld) [Volume fraction] 42.5 % 40-54 [facility] Hemoglobin measurementOrdere d By: Renard Burgos on 04-15-2024 Hemoglobin (Bld) [Mass/Vol] 13.7 g/dL 13.0-16.5 [facility] Immature granulocytes/100 WB C Auto (Bld)Ordered By: Renard Burgos on 04-15-2024 Immature granulocytes/100 WBC (Bld) 0.400 % 0.0-0.9 [facility] Comment on above: IG% - Immature Granu locytes (promyelocytes, myelocytes and metamyelocytes) > 1% indicates that a LEFT SHIFT is Present. Laboratory - Chemistry and C hemistry - challengeOrdered By: Renard Burgos on 04-15-2024 AST [Catalytic activity/Vol] 18 U/L 15-37 [facility] Comment on above: Slight Hemolysis, Re sult may be falsely increased. Liver Profileon 04-15-2024 Albumin [Mass/Vol] 2.9 g/dL Low 3.2-5.0 [facility] Comment on above: Order Comment: 109-1 Performed By: #### L 100.0100, L500.3400 ####[facility] [address] [place], [address] ALK P 126 U/L High 45-117 [facility] Comment on above: Order Comment: 109-1 Performed By: #### L 100.0100, L500.3400 ####[facility] [address] [place], [address] ALT [Catalytic activity/Vol] 21 U/L Normal 16-61 [facility] Comment on above: Order Comment: 109-1 Performed By: #### L 100.0100, L500.3400 ####[facility] [address] [place], [address] AST [Catalytic activity/Vol] 18 U/L Normal 15-37 [facility] Comment on above: Order Comment: 109-1 Result Comment: Slig ht Hemolysis, Result may be falsely increased. Performed By: #### L 100.0100, L500.3400 ####[facility] [address] [place], [address] Bilirubin [Mass/Vol] 0.30 mg/dL Normal 0.20-1.00 [facility] Comment on above: Order Comment: 109-1 Result Comment: For patients on eltrombopag therapy, use of Dimension [place] TBIL is not recommended. Performed By: #### L 100.0100, L500.3400 ####[facility] [address] [place], [address] D BILI < 0.05 Normal 0.00-0.30 [facility] Comment on above: Order Comment: 109-1 Performed By: #### L 100.0100, L500.3400 ####[facility] [address] [place], [address] Globulin (S) [Mass/Vol] 3.0 g/dL Normal 2.2-4.2 [facility] Comment on above: Order Comment: 109-1 Performed By: #### L 100.0100, L500.3400 ####[facility] [address] [place], [address] T PROT 5.9 g/dL Low 6.4-8.2 [facility] Comment on above: Order Comment: 109-1 Performed By: #### L 100.0100, L500.3400 ####[facility] [address] [place], [address] Lymphocytes Auto (Unsp spec) [#/Vol]Ordered By: Renard Burgos on 04-15-2024 Lymphocytes (Bld) [#/Vol] 1.93 10*3/uL 0.83-4.51 [facility] Lymphocytes/100 WBC Auto (Un sp spec)Ordered By: Renard Burgos on 04-15-2024 Lymphocytes/100 WBC (Bld) 16.9 % Low 19-41 [facility] MCV (mean corpuscular volume ) determinationOrdered By: Renard Burgos on 04-15-2024 MCV (RBC) [Entitic vol] 91.6 fL 80-94 [facility] Mean corpuscular hemoglobin (MCH) determinationOrdered By: Renard Burgos on 04-15-2024 MCH (RBC) [Entitic mass] 29.5 pg 27.0-32.0 [facility] Mean corpuscular hemoglobin concentration (MCHC) determinationOrdered By: Renard Burgos on 04-15-2024 MCHC (RBC) [Mass/Vol] 32.2 g/dL 32-36 [facility] Mean platelet volume determi nationOrdered By: Renard Burgos on 04-15-2024 Platelet mean volume (Bld) [Entitic vol] 11.1 fL 6.2-12.0 [facility] Monocyte percentageOrdered B y: Renard Burgos on 04-15-2024 Monocytes/100 WBC (Bld) 6.0 % 0-10 [facility] Neutrophil percentageOrdered By: Renard Burgos on 04-15-2024 Neutrophils/100 WBC (Bld) 76.0 % High 47-70 [facility] Nucleated red blood cell per centageOrdered By: Renard Burgos on 04-15-2024 Nucleated RBC/100 WBC (Bld) [Ratio] 0 % 0-5 [facility] Platelet countOrdered By: Garrick Bhatt on 04-15-2024 Platelets (Bld) [#/Vol] 197 10*3/uL 150-450 [facility] RBC Auto (Bld) [#/Vol]Ordere d By: Renard Burgos on 04-15-2024 RBC (Bld) [#/Vol] 4.64 10*6/uL 4.6-6.2 [facility] Serum globulin measurementOr dered By: Renard Burgos on 04-15-2024 Globulin (S) [Mass/Vol] 3.0 g/dL 2.2-4.2 [facility] Serum or plasma alanine kay otransferase (ALT) measurementOrdered By: Renard Burgos on 04-15-2024 ALT [Catalytic activity/Vol] 21 U/L 16-61 [facility] Serum or plasma albumin gordy urement (mass/volume)Ordered By: Renard Burgos on 04-15-2024 Albumin [Mass/Vol] 2.9 g/dL Low 3.2-5.0 [facility] Serum or plasma alkaline trace sphatase measurementOrdered By: Renard Burgos on 04-15-2024 ALP [Catalytic activity/Vol] 126 U/L High 45-117 [facility] Total proteinOrdered By: Lyubov lizy Loretta on 04-15-2024 Protein [Mass/Vol] 5.9 g/dL Low 6.4-8.2 [facility] White blood cell (WBC) count Ordered By: Renard Burgos on 04-15-2024 WBC (Bld) [#/Vol] 11.4 10*3/uL High 4.4-11.0 [facility] Absolute neutrophil countOrd ered By: Renard Burgos on 04-08-2024 Neutrophils (Bld) [#/Vol] 5.7 10*3/uL 2.0-7.7 [facility] Basophil percentageOrdered B y: Renard Burgos on 04-08-2024 Basophils/100 WBC (Bld) 0.6 % 0-1 [facility] CBC W/Diff, Automatedon Absolute Lymph 2.27 X10 3/uL Normal 0.83-4.51 [facility] Comment on above: Order Comment: 109.1 Performed By: #### L 100.0100 ####[facility] [address] [place], [address] Absolute Neut 5.7 X10 3/uL Normal 2.0-7.7 [facility] Comment on above: Order Comment: 109.1 Performed By: #### L 100.0100 ####[facility] [address] [place], [address] Basophils/100 WBC (Bld) 0.6 % Normal 0-1 [facility] Comment on above: Order Comment: 109.1 Performed By: #### L 100.0100 ####[facility] [address] [place], [address] Eosinophils/100 WBC (Bld) 0.5 % Normal 0-5 [facility] Comment on above: Order Comment: 109.1 Performed By: #### L 100.0100 ####[facility] [address] [place], [address] Erythrocyte distribution width (RBC) [Ratio] 12.6 % Normal 11.6-14.6 [facility] Comment on above: Order Comment: 109.1 Performed By: #### L 100.0100 ####[facility] [address] [place], [address] Hematocrit (Bld) [Volume fraction] 41.2 % Normal 40-54 [facility] Comment on above: Order Comment: 109.1 Performed By: #### L 100.0100 ####[facility] [address] [place], [address] Hemoglobin (Bld) [Mass/Vol] 13.3 g/dL Normal 13.0-16.5 [facility] Comment on above: Order Comment: 109.1 Performed By: #### L 100.0100 ####[facility] [address] [place], [address] IG% 0.200 Normal 0.0-0.9 [facility] Comment on above: Order Comment: 109.1 Result Comment: IG% - Immature Granulocytes (promyelocytes, myelocytes andmetamyelocytes) > 1% indicates that a LEFT SHIFT is Present. Performed By: #### L 100.0100 ####[facility] [address] [place], [address] Lymphocytes/100 WBC (Bld) 26.0 % Normal 19-41 [facility] Comment on above: Order Comment: 109.1 Performed By: #### L 100.0100 ####[facility] [address], [address] MCH (RBC) [Entitic mass] 29.6 pg Normal 27.0-32.0 [facility] Comment on above: Order Comment: 109.1 Performed By: #### L 100.0100 ####[facility] [address] [place], [address] MCHC (RBC) [Mass/Vol] 32.3 g/dL Normal 32-36 [facility] Comment on above: Order Comment: 109.1 Performed By: #### L 100.0100 ####[facility] [address] [place], [address] MCV (RBC) [Entitic vol] 91.8 fL Normal 80-94 [facility] Comment on above: Order Comment: 109.1 Performed By: #### L 100.0100 ####[facility] [address] [place], [address] Monocytes/100 WBC (Bld) 7.8 % Normal 0-10 [facility] Comment on above: Order Comment: 109.1 Performed By: #### L 100.0100 ####[facility] [address] [place], [address] Neutrophils/100 WBC (Bld) 64.9 % Normal 47-70 [facility] Comment on above: Order Comment: 109.1 Performed By: #### L 100.0100 ####[facility] [address] [place], [address] Nucleated RBC (Bld) [#/Vol] 0 10*3/uL Normal 0-5 [facility] Comment on above: Order Comment: 109.1 Performed By: #### L 100.0100 ####[facility] [address] [place], [address] Platelet mean volume (Bld) [Entitic vol] 10.8 fL Normal 6.2-12.0 [facility] Comment on above: Order Comment: 109.1 Performed By: #### L 100.0100 ####[facility] [address] [place], [address] Platelets (Bld) [#/Vol] 208 10*3/uL Normal 150-450 [facility] Comment on above: Order Comment: 109.1 Performed By: #### L 100.0100 ####[facility] [address] [place], [address] RBC (Bld) [#/Vol] 4.49 10*6/uL Low 4.6-6.2 [facility] Comment on above: Order Comment: 109.1 Performed By: #### L 100.0100 ####[facility] [address] [place], [address] RDW SD 42.4 fl Normal 35.1-43.9 [facility] Comment on above: Order Comment: 109.1 Performed By: #### L 100.0100 ####[facility] [address] [place], [address] WBC (Bld) [#/Vol] 8.7 10*3/uL Normal 4.4-11.0 [facility] Comment on above: Order Comment: 109.1 Performed By: #### L 100.0100 ####[facility] [address] [place], [address] Eosinophil percentageOrdered By: Renard Burgos on 04-08-2024 Eosinophils/100 WBC (Bld) 0.5 % 0-5 [facility] Erythrocyte distribution wid th ratioOrdered By: Renard Burgos on 04-08-2024 Erythrocyte distribution width (RBC) [Ratio] 12.6 % 11.6-14.6 [facility] Erythrocyte distribution wid th standard deviationOrdered By: Renard Burgos on 04-08-2024 Erythrocyte distribution width (RBC) [Entitic vol] 42.4 fL 35.1-43.9 [facility] Hematocrit Auto (Bld) [Volum e fraction]Ordered By: Renard Burgos on 04-08-2024 Hematocrit (Bld) [Volume fraction] 41.2 % 40-54 [facility] Hemoglobin measurementOrdere d By: Renard Burgos on 04-08-2024 Hemoglobin (Bld) [Mass/Vol] 13.3 g/dL 13.0-16.5 [facility] Immature granulocytes/100 WB C Auto (Bld)Ordered By: Renard Burgos on 04-08-2024 Immature granulocytes/100 WBC (Bld) 0.200 % 0.0-0.9 [facility] Comment on above: IG% - Immature Granu locytes (promyelocytes, myelocytes and metamyelocytes) > 1% indicates that a LEFT SHIFT is Present. Lymphocytes Auto (Unsp spec) [#/Vol]Ordered By: Renard Burgos on 04-08-2024 Lymphocytes (Bld) [#/Vol] 2.27 10*3/uL 0.83-4.51 [facility] Lymphocytes/100 WBC Auto (Un sp spec)Ordered By: Renard Burgos on 04-08-2024 Lymphocytes/100 WBC (Bld) 26.0 % 19-41 [facility] MCV (mean corpuscular volume ) determinationOrdered By: Renard Burgos on 04-08-2024 MCV (RBC) [Entitic vol] 91.8 fL 80-94 [facility] Mean corpuscular hemoglobin (MCH) determinationOrdered By: Renard Burgos on 04-08-2024 MCH (RBC) [Entitic mass] 29.6 pg 27.0-32.0 [facility] Mean corpuscular hemoglobin concentration (MCHC) determinationOrdered By: Renard Burgos on 04-08-2024 MCHC (RBC) [Mass/Vol] 32.3 g/dL 32-36 [facility] Mean platelet volume determi nationOrdered By: Renard Burgos on 04-08-2024 Platelet mean volume (Bld) [Entitic vol] 10.8 fL 6.2-12.0 [facility] Monocyte percentageOrdered B y: Renard Burgos on 04-08-2024 Monocytes/100 WBC (Bld) 7.8 % 0-10 [facility] Neutrophil percentageOrdered By: Renard Burgos on 04-08-2024 Neutrophils/100 WBC (Bld) 64.9 % 47-70 [facility] Nucleated red blood cell per centageOrdered By: Renard Burgos on 04-08-2024 Nucleated RBC/100 WBC (Bld) [Ratio] 0 % 0-5 [facility] Platelet countOrdered By: Garrick Bhatt on 04-08-2024 Platelets (Bld) [#/Vol] 208 10*3/uL 150-450 [facility] RBC Auto (Bld) [#/Vol]Ordere d By: Renard Burgos on 04-08-2024 RBC (Bld) [#/Vol] 4.49 10*6/uL Low 4.6-6.2 [facility] White blood cell (WBC) count Ordered By: Renard Burgos on 04-08-2024 WBC (Bld) [#/Vol] 8.7 10*3/uL 4.4-11.0 [facility] Absolute neutrophil countOrd ered By: Renard Burgos on 04-01-2024 Neutrophils (Bld) [#/Vol] 7.1 10*3/uL 2.0-7.7 [facility] Basophil percentageOrdered B y: Renard Burgos on 04-01-2024 Basophils/100 WBC (Bld) 0.4 % 0-1 [facility] CBC W/Diff, Automatedon Absolute Lymph 1.97 X10 3/uL Normal 0.83-4.51 [facility] Comment on above: Order Comment: 109-1 Performed By: #### L 100.0100 ####[facility] [address] [place], [place], [address] Absolute Neut 7.1 X10 3/uL Normal 2.0-7.7 [facility] Comment on above: Order Comment: 109-1 Performed By: #### L 100.0100 ####[facility] [address] [place], [address] Basophils/100 WBC (Bld) 0.4 % Normal 0-1 [facility] Comment on above: Order Comment: 109-1 Performed By: #### L 100.0100 ####[facility] [address] [place], [address] Eosinophils/100 WBC (Bld) 0.4 % Normal 0-5 [facility] Comment on above: Order Comment: 109-1 Performed By: #### L 100.0100 ####[facility] [address] [place], [address] Erythrocyte distribution width (RBC) [Ratio] 12.6 % Normal 11.6-14.6 [facility] Comment on above: Order Comment: 109-1 Performed By: #### L 100.0100 ####[facility] [address] [place], [address] Hematocrit (Bld) [Volume fraction] 41.7 % Normal 40-54 [facility] Comment on above: Order Comment: 109-1 Performed By: #### L 100.0100 ####[facility] [address] [place], [address] Hemoglobin (Bld) [Mass/Vol] 13.6 g/dL Normal 13.0-16.5 [facility] Comment on above: Order Comment: 109-1 Performed By: #### L 100.0100 ####[facility] [address] [place], [address] IG% 0.300 Normal 0.0-0.9 [facility] Comment on above: Order Comment: 109-1 Result Comment: IG% - Immature Granulocytes (promyelocytes, myelocytes andmetamyelocytes) > 1% indicates that a LEFT SHIFT is Present. Performed By: #### L 100.0100 ####[facility] [address] [place], [address] Lymphocytes/100 WBC (Bld) 20.0 % Normal 19-41 [facility] Comment on above: Order Comment: 109-1 Performed By: #### L 100.0100 ####[facility] [address], [address] MCH (RBC) [Entitic mass] 29.7 pg Normal 27.0-32.0 [facility] Comment on above: Order Comment: 109-1 Performed By: #### L 100.0100 ####[facility] [address] [place], [address] MCHC (RBC) [Mass/Vol] 32.6 g/dL Normal 32-36 [facility] Comment on above: Order Comment: 109-1 Performed By: #### L 100.0100 ####[facility] [address] [place], [address] MCV (RBC) [Entitic vol] 91.0 fL Normal 80-94 [facility] Comment on above: Order Comment: 109-1 Performed By: #### L 100.0100 ####[facility] [address] [place], [address] Monocytes/100 WBC (Bld) 7.1 % Normal 0-10 [facility] Comment on above: Order Comment: 109-1 Performed By: #### L 100.0100 ####[facility] [address] [place], [address] Neutrophils/100 WBC (Bld) 71.8 % High 47-70 [facility] Comment on above: Order Comment: 109-1 Performed By: #### L 100.0100 ####[facility] [address] [place], [address] Nucleated RBC (Bld) [#/Vol] 0 10*3/uL Normal 0-5 [facility] Comment on above: Order Comment: 109-1 Performed By: #### L 100.0100 ####[facility] [address] [place], [address] Platelet mean volume (Bld) [Entitic vol] 11.3 fL Normal 6.2-12.0 [facility] Comment on above: Order Comment: 109-1 Performed By: #### L 100.0100 ####[facility] [address] [place], [address] Platelets (Bld) [#/Vol] 195 10*3/uL Normal 150-450 [facility] Comment on above: Order Comment: 109-1 Performed By: #### L 100.0100 ####[facility] [address] [place], [address] RBC (Bld) [#/Vol] 4.58 10*6/uL Low 4.6-6.2 [facility] Comment on above: Order Comment: 109-1 Performed By: #### L 100.0100 ####[facility] [address] [place], [address] RDW SD 41.2 fl Normal 35.1-43.9 [facility] Comment on above: Order Comment: 109-1 Performed By: #### L 100.0100 ####[facility] [address] [place], [address] WBC (Bld) [#/Vol] 9.8 10*3/uL Normal 4.4-11.0 [facility] Comment on above: Order Comment: 109-1 Performed By: #### L 100.0100 ####[facility] [address] [place], [address] Eosinophil percentageOrdered By: Renard Burgos on 04-01-2024 Eosinophils/100 WBC (Bld) 0.4 % 0-5 [facility] Erythrocyte distribution wid th ratioOrdered By: Renard Burgos on 04-01-2024 Erythrocyte distribution width (RBC) [Ratio] 12.6 % 11.6-14.6 [facility] Erythrocyte distribution wid th standard deviationOrdered By: Renard Burgos on 04-01-2024 Erythrocyte distribution width (RBC) [Entitic vol] 41.2 fL 35.1-43.9 [facility] Hematocrit Auto (Bld) [Volum e fraction]Ordered By: Renard Burgos on 04-01-2024 Hematocrit (Bld) [Volume fraction] 41.7 % 40-54 [facility] Hemoglobin measurementOrdere d By: Renard Burgos on 04-01-2024 Hemoglobin (Bld) [Mass/Vol] 13.6 g/dL 13.0-16.5 [facility] Immature granulocytes/100 WB C Auto (Bld)Ordered By: Renard Burgos on 04-01-2024 Immature granulocytes/100 WBC (Bld) 0.300 % 0.0-0.9 [facility] Comment on above: IG% - Immature Granu locytes (promyelocytes, myelocytes and metamyelocytes) > 1% indicates that a LEFT SHIFT is Present. Lymphocytes Auto (Unsp spec) [#/Vol]Ordered By: Renard Burgos on 04-01-2024 Lymphocytes (Bld) [#/Vol] 1.97 10*3/uL 0.83-4.51 [facility] Lymphocytes/100 WBC Auto (Un sp spec)Ordered By: Renard Burgos on 04-01-2024 Lymphocytes/100 WBC (Bld) 20.0 % 19-41 [facility] MCV (mean corpuscular volume ) determinationOrdered By: Renard Burgos on 04-01-2024 MCV (RBC) [Entitic vol] 91.0 fL 80-94 [facility] Mean corpuscular hemoglobin (MCH) determinationOrdered By: Renard Burgos on 04-01-2024 MCH (RBC) [Entitic mass] 29.7 pg 27.0-32.0 [facility] Mean corpuscular hemoglobin concentration (MCHC) determinationOrdered By: Renard Burgos on 04-01-2024 MCHC (RBC) [Mass/Vol] 32.6 g/dL 32-36 [facility] Mean platelet volume determi nationOrdered By: Renard Burgos on 04-01-2024 Platelet mean volume (Bld) [Entitic vol] 11.3 fL 6.2-12.0 [facility] Monocyte percentageOrdered B y: Renard Burgos on 04-01-2024 Monocytes/100 WBC (Bld) 7.1 % 0-10 [facility] Neutrophil percentageOrdered By: Renard Burgos on 04-01-2024 Neutrophils/100 WBC (Bld) 71.8 % High 47-70 [facility] Nucleated red blood cell per centageOrdered By: Renard Burgos on 04-01-2024 Nucleated RBC/100 WBC (Bld) [Ratio] 0 % 0-5 [facility] Platelet countOrdered By: Garrick Bhatt on 04-01-2024 Platelets (Bld) [#/Vol] 195 10*3/uL 150-450 [facility] RBC Auto (Bld) [#/Vol]Ordere d By: Renard Burgos on 04-01-2024 RBC (Bld) [#/Vol] 4.58 10*6/uL Low 4.6-6.2 [facility] White blood cell (WBC) count Ordered By: Renard Burgos on 04-01-2024 WBC (Bld) [#/Vol] 9.8 10*3/uL 4.4-11.0 [facility] Absolute neutrophil countOrd ered By: Renard Burgos on 03-25-2024 Neutrophils (Bld) [#/Vol] 5.4 10*3/uL 2.0-7.7 [facility] Basophil percentageOrdered B y: Renard Burgos on 03-25-2024 Basophils/100 WBC (Bld) 0.5 % 0-1 [facility] CBC W/Diff, Automatedon 03-02 Absolute Lymph 2.14 X10 3/uL Normal 0.83-4.51 [facility] Comment on above: Order Comment: 109-1 Performed By: #### L 100.0100 ####[facility] [address] [place], [address] Absolute Neut 5.4 X10 3/uL Normal 2.0-7.7 [facility] Comment on above: Order Comment: 109-1 Performed By: #### L 100.0100 ####[facility] [address] [place], [address] Basophils/100 WBC (Bld) 0.5 % Normal 0-1 [facility] Comment on above: Order Comment: 109-1 Performed By: #### L 100.0100 ####[facility] [address] [place], [address] Eosinophils/100 WBC (Bld) 0.7 % Normal 0-5 [facility] Comment on above: Order Comment: 109-1 Performed By: #### L 100.0100 ####[facility] [address] [place], [address] Erythrocyte distribution width (RBC) [Ratio] 12.7 % Normal 11.6-14.6 [facility] Comment on above: Order Comment: 109-1 Performed By: #### L 100.0100 ####[facility] [address] [place], [address] Hematocrit (Bld) [Volume fraction] 42.3 % Normal 40-54 [facility] Comment on above: Order Comment: 109-1 Performed By: #### L 100.0100 ####[facility] [address] [place], [address] Hemoglobin (Bld) [Mass/Vol] 13.7 g/dL Normal 13.0-16.5 [facility] Comment on above: Order Comment: 109-1 Performed By: #### L 100.0100 ####[facility] [address] [place], [address] IG% 0.500 Normal 0.0-0.9 [facility] Comment on above: Order Comment: 109-1 Result Comment: IG% - Immature Granulocytes (promyelocytes, myelocytes andmetamyelocytes) > 1% indicates that a LEFT SHIFT is Present. Performed By: #### L 100.0100 ####[facility] [address] [place], [address] Lymphocytes/100 WBC (Bld) 25.8 % Normal 19-41 [facility] Comment on above: Order Comment: 109-1 Performed By: #### L 100.0100 ####[facility] [address] [place], [address] MCH (RBC) [Entitic mass] 29.2 pg Normal 27.0-32.0 [facility] Comment on above: Order Comment: 109-1 Performed By: #### L 100.0100 ####[facility] [address] [place], [address] MCHC (RBC) [Mass/Vol] 32.4 g/dL Normal 32-36 [facility] Comment on above: Order Comment: 109-1 Performed By: #### L 100.0100 ####[facility] [address] [place], [address] MCV (RBC) [Entitic vol] 90.2 fL Normal 80-94 [facility] Comment on above: Order Comment: 109-1 Performed By: #### L 100.0100 ####[facility] [address] [place], [address] Monocytes/100 WBC (Bld) 8.0 % Normal 0-10 [facility] Comment on above: Order Comment: 109-1 Performed By: #### L 100.0100 ####[facility] [address] [place], [address] Neutrophils/100 WBC (Bld) 64.5 % Normal 47-70 [facility] Comment on above: Order Comment: 109-1 Performed By: #### L 100.0100 ####[facility] [address] [place], [address] Nucleated RBC (Bld) [#/Vol] 0 10*3/uL Normal 0-5 [facility] Comment on above: Order Comment: 109-1 Performed By: #### L 100.0100 ####[facility] [address] [place], [address] Platelet mean volume (Bld) [Entitic vol] 11.2 fL Normal 6.2-12.0 [facility] Comment on above: Order Comment: 109-1 Performed By: #### L 100.0100 ####[facility] [address] [place], [address] Platelets (Bld) [#/Vol] 204 10*3/uL Normal 150-450 [facility] Comment on above: Order Comment: 109-1 Performed By: #### L 100.0100 ####[facility] [address] [place], [address] RBC (Bld) [#/Vol] 4.69 10*6/uL Normal 4.6-6.2 [facility] Comment on above: Order Comment: 109-1 Performed By: #### L 100.0100 ####[facility] [address] [place], [address] RDW SD 41.8 fl Normal 35.1-43.9 [facility] Comment on above: Order Comment: 109-1 Performed By: #### L 100.0100 ####[facility] [address] [place], [address] WBC (Bld) [#/Vol] 8.3 10*3/uL Normal 4.4-11.0 [facility] Comment on above: Order Comment: 109-1 Performed By: #### L 100.0100 ####[facility] [address] [place], [address] Eosinophil percentageOrdered By: Renard Burgos on 03-25-2024 Eosinophils/100 WBC (Bld) 0.7 % 0-5 [facility] Erythrocyte distribution wid th ratioOrdered By: Renard Burgos on 03-25-2024 Erythrocyte distribution width (RBC) [Ratio] 12.7 % 11.6-14.6 [facility] Erythrocyte distribution wid th standard deviationOrdered By: Renard Burgos on 03-25-2024 Erythrocyte distribution width (RBC) [Entitic vol] 41.8 fL 35.1-43.9 [facility] Hematocrit Auto (Bld) [Volum e fraction]Ordered By: Renard Burgos on 03-25-2024 Hematocrit (Bld) [Volume fraction] 42.3 % 40-54 [facility] Hemoglobin measurementOrdere d By: Renard Burgos on 03-25-2024 Hemoglobin (Bld) [Mass/Vol] 13.7 g/dL 13.0-16.5 [facility] Immature granulocytes/100 WB C Auto (Bld)Ordered By: Renard Burgos on 03-25-2024 Immature granulocytes/100 WBC (Bld) 0.500 % 0.0-0.9 [facility] Comment on above: IG% - Immature Granu locytes (promyelocytes, myelocytes and metamyelocytes) > 1% indicates that a LEFT SHIFT is Present. Lymphocytes Auto (Unsp spec) [#/Vol]Ordered By: Renard Burgos on 03-25-2024 Lymphocytes (Bld) [#/Vol] 2.14 10*3/uL 0.83-4.51 [facility] Lymphocytes/100 WBC Auto (Un sp spec)Ordered By: Renard Burgos on 03-25-2024 Lymphocytes/100 WBC (Bld) 25.8 % 19-41 [facility] MCV (mean corpuscular volume ) determinationOrdered By: Renard Burgos on 03-25-2024 MCV (RBC) [Entitic vol] 90.2 fL 80-94 [facility] Mean corpuscular hemoglobin (MCH) determinationOrdered By: Renard Burgos on 03-25-2024 MCH (RBC) [Entitic mass] 29.2 pg 27.0-32.0 [facility] Mean corpuscular hemoglobin concentration (MCHC) determinationOrdered By: Renard Burgos on 03-25-2024 MCHC (RBC) [Mass/Vol] 32.4 g/dL 32-36 [facility] Mean platelet volume determi nationOrdered By: Renard Burgos on 03-25-2024 Platelet mean volume (Bld) [Entitic vol] 11.2 fL 6.2-12.0 [facility] Monocyte percentageOrdered B y: Renard Burgos on 03-25-2024 Monocytes/100 WBC (Bld) 8.0 % 0-10 [facility] Neutrophil percentageOrdered By: Renard Burgos on 03-25-2024 Neutrophils/100 WBC (Bld) 64.5 % 47-70 [facility] Nucleated red blood cell per centageOrdered By: Renard Burgos on 03-25-2024 Nucleated RBC/100 WBC (Bld) [Ratio] 0 % 0-5 [facility] Platelet countOrdered By: Garrick Bhatt on 03-25-2024 Platelets (Bld) [#/Vol] 204 10*3/uL 150-450 [facility] RBC Auto (Bld) [#/Vol]Ordere d By: Renard Burgos on 03-25-2024 RBC (Bld) [#/Vol] 4.69 10*6/uL 4.6-6.2 [facility] White blood cell (WBC) count Ordered By: Renard Burgos on 03-25-2024 WBC (Bld) [#/Vol] 8.3 10*3/uL 4.4-11.0 [facility] Absolute neutrophil countOrd ered By: Renard Burgos on 03-18-2024 Neutrophils (Bld) [#/Vol] 5.2 10*3/uL 2.0-7.7 [facility] Basophil percentageOrdered B y: Renard Burgos on 03-18-2024 Basophils/100 WBC (Bld) 0.6 % 0-1 [facility] CBC W/Diff, Automatedon 03-01 Absolute Lymph 2.23 X10 3/uL Normal 0.83-4.51 [facility] Comment on above: Order Comment: 109.1 Performed By: #### L 100.0100 ####[facility] [address] [place], [address] Absolute Neut 5.2 X10 3/uL Normal 2.0-7.7 [facility] Comment on above: Order Comment: 109.1 Performed By: #### L 100.0100 ####[facility] [address] [place], [address] Basophils/100 WBC (Bld) 0.6 % Normal 0-1 [facility] Comment on above: Order Comment: 109.1 Performed By: #### L 100.0100 ####[facility] [address], [address] Eosinophils/100 WBC (Bld) 0.7 % Normal 0-5 [facility] Comment on above: Order Comment: 109.1 Performed By: #### L 100.0100 ####[facility] [address] [place], [address] Erythrocyte distribution width (RBC) [Ratio] 12.8 % Normal 11.6-14.6 [facility] Comment on above: Order Comment: 109.1 Performed By: #### L 100.0100 ####[facility] [address] [place], [address] Hematocrit (Bld) [Volume fraction] 42.0 % Normal 40-54 [facility] Comment on above: Order Comment: 109.1 Performed By: #### L 100.0100 ####[facility] [address] [place], [address] Hemoglobin (Bld) [Mass/Vol] 13.6 g/dL Normal 13.0-16.5 [facility] Comment on above: Order Comment: 109.1 Performed By: #### L 100.0100 ####[facility] [address] [place], [address] IG% 0.500 Normal 0.0-0.9 [facility] Comment on above: Order Comment: 109.1 Result Comment: IG% - Immature Granulocytes (promyelocytes, myelocytes andmetamyelocytes) > 1% indicates that a LEFT SHIFT is Present. Performed By: #### L 100.0100 ####[facility] [address] [place], [address] Lymphocytes/100 WBC (Bld) 27.0 % Normal 19-41 [facility] Comment on above: Order Comment: 109.1 Performed By: #### L 100.0100 ####[facility] [address] [place], [address] MCH (RBC) [Entitic mass] 29.5 pg Normal 27.0-32.0 [facility] Comment on above: Order Comment: 109.1 Performed By: #### L 100.0100 ####[facility] [address] [place], [address] MCHC (RBC) [Mass/Vol] 32.4 g/dL Normal 32-36 [facility] Comment on above: Order Comment: 109.1 Performed By: #### L 100.0100 ####[facility] [address] [place], [address] MCV (RBC) [Entitic vol] 91.1 fL Normal 80-94 [facility] Comment on above: Order Comment: 109.1 Performed By: #### L 100.0100 ####[facility] [address], [address] Monocytes/100 WBC (Bld) 8.5 % Normal 0-10 [facility] Comment on above: Order Comment: 109.1 Performed By: #### L 100.0100 ####[facility] [address], [address] Neutrophils/100 WBC (Bld) 62.7 % Normal 47-70 [facility] Comment on above: Order Comment: 109.1 Performed By: #### L 100.0100 ####[facility] [address] [place], [address] Nucleated RBC (Bld) [#/Vol] 0 10*3/uL Normal 0-5 [facility] Comment on above: Order Comment: 109.1 Performed By: #### L 100.0100 ####[facility] [address] [place], [address] Platelet mean volume (Bld) [Entitic vol] 10.8 fL Normal 6.2-12.0 [facility] Comment on above: Order Comment: 109.1 Performed By: #### L 100.0100 ####[facility] [address] [place], [address] Platelets (Bld) [#/Vol] 211 10*3/uL Normal 150-450 [facility] Comment on above: Order Comment: 109.1 Performed By: #### L 100.0100 ####[facility] [address] [place], [address] RBC (Bld) [#/Vol] 4.61 10*6/uL Normal 4.6-6.2 [facility] Comment on above: Order Comment: 109.1 Performed By: #### L 100.0100 ####[facility] [address] [place], [address] RDW SD 42.3 fl Normal 35.1-43.9 [facility] Comment on above: Order Comment: 109.1 Performed By: #### L 100.0100 ####[facility] [address] [place], [address] WBC (Bld) [#/Vol] 8.3 10*3/uL Normal 4.4-11.0 [facility] Comment on above: Order Comment: 109.1 Performed By: #### L 100.0100 ####[facility] [address] [place], [address] Eosinophil percentageOrdered By: Renard Burgos on 03-18-2024 Eosinophils/100 WBC (Bld) 0.7 % 0-5 [facility] Erythrocyte distribution wid th ratioOrdered By: Renard Burgos on 03-18-2024 Erythrocyte distribution width (RBC) [Ratio] 12.8 % 11.6-14.6 [facility] Erythrocyte distribution wid th standard deviationOrdered By: Renard Burgos on 03-18-2024 Erythrocyte distribution width (RBC) [Entitic vol] 42.3 fL 35.1-43.9 [facility] Hematocrit Auto (Bld) [Volum e fraction]Ordered By: Renard Burgos on 03-18-2024 Hematocrit (Bld) [Volume fraction] 42.0 % 40-54 [facility] Hemoglobin measurementOrdere d By: Renard Burgos on 03-18-2024 Hemoglobin (Bld) [Mass/Vol] 13.6 g/dL 13.0-16.5 [facility] Immature granulocytes/100 WB C Auto (Bld)Ordered By: Renard Burgos on 03-18-2024 Immature granulocytes/100 WBC (Bld) 0.500 % 0.0-0.9 [facility] Comment on above: IG% - Immature Granu locytes (promyelocytes, myelocytes and metamyelocytes) > 1% indicates that a LEFT SHIFT is Present. Lymphocytes Auto (Unsp spec) [#/Vol]Ordered By: Renard Burgos on 03-18-2024 Lymphocytes (Bld) [#/Vol] 2.23 10*3/uL 0.83-4.51 [facility] Lymphocytes/100 WBC Auto (Un sp spec)Ordered By: Renard Burgos on 03-18-2024 Lymphocytes/100 WBC (Bld) 27.0 % 19-41 [facility] MCV (mean corpuscular volume ) determinationOrdered By: Renard Burgos on 03-18-2024 MCV (RBC) [Entitic vol] 91.1 fL 80-94 [facility] Mean corpuscular hemoglobin (MCH) determinationOrdered By: Renard Burgos on 03-18-2024 MCH (RBC) [Entitic mass] 29.5 pg 27.0-32.0 [facility] Mean corpuscular hemoglobin concentration (MCHC) determinationOrdered By: Renard Burgos on 03-18-2024 MCHC (RBC) [Mass/Vol] 32.4 g/dL 32-36 [facility] Mean platelet volume determi nationOrdered By: Renard Burgos on 03-18-2024 Platelet mean volume (Bld) [Entitic vol] 10.8 fL 6.2-12.0 [facility] Monocyte percentageOrdered B y: Renard Burgos on 03-18-2024 Monocytes/100 WBC (Bld) 8.5 % 0-10 [facility] Neutrophil percentageOrdered By: Renard Burgos on 03-18-2024 Neutrophils/100 WBC (Bld) 62.7 % 47-70 [facility] Nucleated red blood cell per centageOrdered By: Renard Burgos on 03-18-2024 Nucleated RBC/100 WBC (Bld) [Ratio] 0 % 0-5 [facility] Platelet countOrdered By: Garrick Bhatt on 03-18-2024 Platelets (Bld) [#/Vol] 211 10*3/uL 150-450 [facility] RBC Auto (Bld) [#/Vol]Ordere d By: Renard Burgos on 03-18-2024 RBC (Bld) [#/Vol] 4.61 10*6/uL 4.6-6.2 [facility] White blood cell (WBC) count Ordered By: Renard Burgos on 03-18-2024 WBC (Bld) [#/Vol] 8.3 10*3/uL 4.4-11.0 [facility] Absolute neutrophil countOrd ered By: Renard Burgos on 03-11-2024 Neutrophils (Bld) [#/Vol] 6.2 10*3/uL 2.0-7.7 [facility] Automated blood erythrocyte countOrdered By: Renard Burgos on 03-11-2024 RBC (Bld) [#/Vol] 4.54 10*6/uL Low 4.6-6.2 [facility] Comment on above: Order Comment: 109.1 Performed By: #### L 100.0100 ####[facility] [address] [place], [place], [address] Automated blood hematocrit ( percentage)Ordered By: Renard Burgos on 03-11-2024 Hematocrit (Bld) [Volume fraction] 41.5 % Normal 40-54 [facility] Comment on above: Order Comment: 109.1 Performed By: #### L 100.0100 ####[facility] [address] [place], [address] Automated lymphocyte count a s percentage of total leukocytesOrdered By: Renard Hensleyrustam on 03-11-2024 Lymphocytes/100 WBC (Bld) 25.6 % Normal 19-41 [facility] Comment on above: Order Comment: 109.1 Performed By: #### L 100.0100 ####[facility] [address] [place], [address] Basophil percentageOrdered B y: Renard Burgos on 03-11-2024 Basophils/100 WBC (Bld) 0.5 % Normal 0-1 [facility] Comment on above: Order Comment: 109.1 Performed By: #### L 100.0100 ####[facility] [address] [place], [address] CBC W/Diff, Automatedon 03-01 Absolute Lymph 2.50 X10 3/uL Normal 0.83-4.51 [facility] Comment on above: Order Comment: 109.1 Performed By: #### L 100.0100 ####[facility] [address] [place], [address] Absolute Neut 6.2 X10 3/uL Normal 2.0-7.7 [facility] Comment on above: Order Comment: 109.1 Performed By: #### L 100.0100 ####[facility] [address] [place], [address] IG% 0.500 Normal 0.0-0.9 [facility] Comment on above: Order Comment: 109.1 Result Comment: IG% - Immature Granulocytes (promyelocytes, myelocytes andmetamyelocytes) > 1% indicates that a LEFT SHIFT is Present. Performed By: #### L 100.0100 ####[facility] [address] [place], [address] Nucleated RBC (Bld) [#/Vol] 0 10*3/uL Normal 0-5 [facility] Comment on above: Order Comment: 109.1 Performed By: #### L 100.0100 ####[facility] [address] [place], [address] RDW SD 41.5 fl Normal 35.1-43.9 [facility] Comment on above: Order Comment: 109.1 Performed By: #### L 100.0100 ####[facility] [address] [place], [address] Eosinophil percentageOrdered By: Renard Burgos on 03-11-2024 Eosinophils/100 WBC (Bld) 0.6 % Normal 0-5 [facility] Comment on above: Order Comment: 109.1 Performed By: #### L 100.0100 ####[facility] [address] [place], [address] Erythrocyte distribution wid th ratioOrdered By: Renard Burgos on 03-11-2024 Erythrocyte distribution width (RBC) [Ratio] 12.7 % Normal 11.6-14.6 [facility] Comment on above: Order Comment: 109.1 Performed By: #### L 100.0100 ####[facility] [address] [place], [address] Erythrocyte distribution wid th standard deviationOrdered By: Renard Burgos on 03-11-2024 Erythrocyte distribution width (RBC) [Entitic vol] 41.5 fL 35.1-43.9 [facility] Hemoglobin measurementOrdere d By: Renard Burgos on 03-11-2024 Hemoglobin (Bld) [Mass/Vol] 13.8 g/dL Normal 13.0-16.5 [facility] Comment on above: Order Comment: 109.1 Performed By: #### L 100.0100 ####[facility] [address] [place], [address] Immature granulocytes/100 WB C Auto (Bld)Ordered By: Renard Burgos on 03-11-2024 Immature granulocytes/100 WBC (Bld) 0.500 % 0.0-0.9 [facility] Comment on above: IG% - Immature Granu locytes (promyelocytes, myelocytes and metamyelocytes) > 1% indicates that a LEFT SHIFT is Present. Lymphocytes Auto (Unsp spec) [#/Vol]Ordered By: Renard Burgos on 03-11-2024 Lymphocytes (Bld) [#/Vol] 2.50 10*3/uL 0.83-4.51 [facility] MCV (mean corpuscular volume ) determinationOrdered By: Renard Burgos on 03-11-2024 MCV (RBC) [Entitic vol] 91.4 fL Normal 80-94 [facility] Comment on above: Order Comment: 109.1 Performed By: #### L 100.0100 ####[facility] [address] [place], [address] Mean corpuscular hemoglobin (MCH) determinationOrdered By: Renard Burgos on 03-11-2024 MCH (RBC) [Entitic mass] 30.4 pg Normal 27.0-32.0 [facility] Comment on above: Order Comment: 109.1 Performed By: #### L 100.0100 ####[facility] [address] [place], [address] Mean corpuscular hemoglobin concentration (MCHC) determinationOrdered By: Renard Burgos on 03-11-2024 MCHC (RBC) [Mass/Vol] 33.3 g/dL Normal 32-36 [facility] Comment on above: Order Comment: 109.1 Performed By: #### L 100.0100 ####[facility] [address] [place], [address] Mean platelet volume determi nationOrdered By: Renard Burgos on 03-11-2024 Platelet mean volume (Bld) [Entitic vol] 11.0 fL Normal 6.2-12.0 [facility] Comment on above: Order Comment: 109.1 Performed By: #### L 100.0100 ####[facility] [address] [place], [address] Monocyte percentageOrdered B y: Renard Burgos on 03-11-2024 Monocytes/100 WBC (Bld) 9.0 % Normal 0-10 [facility] Comment on above: Order Comment: 109.1 Performed By: #### L 100.0100 ####[facility] [address] [place], [address] Neutrophil percentageOrdered By: Renard Burgos on 03-11-2024 Neutrophils/100 WBC (Bld) 63.8 % Normal 47-70 [facility] Comment on above: Order Comment: 109.1 Performed By: #### L 100.0100 ####[facility] [address] [place], [address] Nucleated red blood cell per centageOrdered By: Renard Burgos on 03-11-2024 Nucleated RBC/100 WBC (Bld) [Ratio] 0 % 0-5 [facility] Platelet countOrdered By: Garrick Bhatt on 03-11-2024 Platelets (Bld) [#/Vol] 220 10*3/uL Normal 150-450 [facility] Comment on above: Order Comment: 109.1 Performed By: #### L 100.0100 ####[facility] [address] [place], [address] White blood cell (WBC) count Ordered By: Renard Burgos on 03-11-2024 WBC (Bld) [#/Vol] 9.8 10*3/uL Normal 4.4-11.0 [facility] Comment on above: Order Comment: 109.1 Performed By: #### L 100.0100 ####[facility] [address] [place], [address] CBC W/Diff, Automatedon 11-0 Absolute Lymph 1.99 X10 3/uL Normal 0.83-4.51 [facility] Comment on above: Order Comment: 109.1 Performed By: #### L 100.0100 ####[facility] [address] [place], [address] Absolute Neut 5.3 X10 3/uL Normal 2.0-7.7 [facility] Comment on above: Order Comment: 109.1 Performed By: #### L 100.0100 ####[facility] [address] [place], [address] Basophils/100 WBC (Bld) 0.6 % Normal 0-1 W [facility] Comment on above: Order Comment: 109.1 Performed By: #### L 100.0100 ####[facility] [address] [place], [address] Eosinophils/100 WBC (Bld) 0.7 % Normal 0-5 [facility] Comment on above: Order Comment: 109.1 Performed By: #### L 100.0100 ####[facility] [address] [place], [address] Erythrocyte distribution width (RBC) [Ratio] 12.7 % Normal 11.6-14.6 [facility] Comment on above: Order Comment: 109.1 Performed By: #### L 100.0100 ####[facility] [address] [place], [address] Hematocrit (Bld) [Volume fraction] 42.1 % Normal 40-54 [facility] Comment on above: Order Comment: 109.1 Performed By: #### L 100.0100 ####[facility] [address] [place], [address] Hemoglobin (Bld) [Mass/Vol] 14.0 g/dL Normal 13.0-16.5 [facility] Comment on above: Order Comment: 109.1 Performed By: #### L 100.0100 ####[facility] [address] [place], [address] IG% 0.400 Normal 0.0-0.9 [facility] Comment on above: Order Comment: 109.1 Result Comment: IG% - Immature Granulocytes (promyelocytes, myelocytes andmetamyelocytes) > 1% indicates that a LEFT SHIFT is Present. Performed By: #### L 100.0100 ####[facility] [address] [place], [address] Lymphocytes/100 WBC (Bld) 24.5 % Normal 19-41 [facility] Comment on above: Order Comment: 109.1 Performed By: #### L 100.0100 ####[facility] [address] [place], [address] MCH (RBC) [Entitic mass] 30.2 pg Normal 27.0-32.0 [facility] Comment on above: Order Comment: 109.1 Performed By: #### L 100.0100 ####[facility] [address] [place], [address] MCHC (RBC) [Mass/Vol] 33.3 g/dL Normal 32-36 [facility] Comment on above: Order Comment: 109.1 Performed By: #### L 100.0100 ####[facility] [address] [place], [address] MCV (RBC) [Entitic vol] 90.7 fL Normal 80-94 [facility] Comment on above: Order Comment: 109.1 Performed By: #### L 100.0100 ####[facility] [address] [place], [address] Monocytes/100 WBC (Bld) 8.2 % Normal 0-10 [facility] Comment on above: Order Comment: 109.1 Performed By: #### L 100.0100 ####[facility] [address] [place], [address] Neutrophils/100 WBC (Bld) 65.6 % Normal 47-70 [facility] Comment on above: Order Comment: 109.1 Performed By: #### L 100.0100 ####[facility] [address] [place], [address] Nucleated RBC (Bld) [#/Vol] 0 10*3/uL Normal 0-5 [facility] Comment on above: Order Comment: 109.1 Performed By: #### L 100.0100 ####[facility] [address] [place], [address] Platelet mean volume (Bld) [Entitic vol] 11.0 fL Normal 6.2-12.0 [facility] Comment on above: Order Comment: 109.1 Performed By: #### L 100.0100 ####[facility] [address] [place], [address] Platelets (Bld) [#/Vol] 216 10*3/uL Normal 150-450 [facility] Comment on above: Order Comment: 109.1 Performed By: #### L 100.0100 ####[facility] [address] [place], [address] RBC (Bld) [#/Vol] 4.64 10*6/uL Normal 4.6-6.2 [facility] Comment on above: Order Comment: 109.1 Performed By: #### L 100.0100 ####[facility] [address] [place], [address] RDW SD 41.9 fl Normal 35.1-43.9 [facility] Comment on above: Order Comment: 109.1 Performed By: #### L 100.0100 ####[facility] [address] [place], [address] WBC (Bld) [#/Vol] 8.1 10*3/uL Normal 4.4-11.0 [facility] Comment on above: Order Comment: 109.1 Performed By: #### L 100.0100 ####[facility] [address] [place], [address] CBC W/Diff, Automatedon 01-30 Absolute Lymph 2.15 X10 3/uL Normal 0.83-4.51 [facility] Comment on above: Order Comment: 109.1 Performed By: #### L 100.0100 ####[facility] [address] [place], [address] Absolute Neut 7.1 X10 3/uL Normal 2.0-7.7 [facility] Comment on above: Order Comment: 109.1 Performed By: #### L 100.0100 ####[facility] [address] [place], [address] Basophils/100 WBC (Bld) 0.4 % Normal 0-1 W [facility] Comment on above: Order Comment: 109.1 Performed By: #### L 100.0100 ####[facility] [address] [place], [address] Eosinophils/100 WBC (Bld) 0.6 % Normal 0-5 [facility] Comment on above: Order Comment: 109.1 Performed By: #### L 100.0100 ####[facility] [address] [place], [address] Erythrocyte distribution width (RBC) [Ratio] 12.6 % Normal 11.6-14.6 [facility] Comment on above: Order Comment: 109.1 Performed By: #### L 100.0100 ####[facility] [address] [place], [address] Hematocrit (Bld) [Volume fraction] 40.2 % Normal 40-54 [facility] Comment on above: Order Comment: 109.1 Performed By: #### L 100.0100 ####[facility] [address] [place], [address] Hemoglobin (Bld) [Mass/Vol] 13.6 g/dL Normal 13.0-16.5 [facility] Comment on above: Order Comment: 109.1 Performed By: #### L 100.0100 ####[facility] [address] [place], [address] IG% 0.500 Normal 0.0-0.9 [facility] Comment on above: Order Comment: 109.1 Result Comment: IG% - Immature Granulocytes (promyelocytes, myelocytes andmetamyelocytes) > 1% indicates that a LEFT SHIFT is Present. Performed By: #### L 100.0100 ####[facility] [address] [place], [address] Lymphocytes/100 WBC (Bld) 20.9 % Normal 19-41 [facility] Comment on above: Order Comment: 109.1 Performed By: #### L 100.0100 ####[facility] [address] [place], [address] MCH (RBC) [Entitic mass] 30.6 pg Normal 27.0-32.0 [facility] Comment on above: Order Comment: 109.1 Performed By: #### L 100.0100 ####[facility] [address] [place], [address] MCHC (RBC) [Mass/Vol] 33.8 g/dL Normal 32-36 [facility] Comment on above: Order Comment: 109.1 Performed By: #### L 100.0100 ####[facility] [address] [place], [address] MCV (RBC) [Entitic vol] 90.5 fL Normal 80-94 [facility] Comment on above: Order Comment: 109.1 Performed By: #### L 100.0100 ####[facility] [address] [place], [address] Monocytes/100 WBC (Bld) 8.5 % Normal 0-10 W [facility] Comment on above: Order Comment: 109.1 Performed By: #### L 100.0100 ####[facility] [address] [place], [address] Neutrophils/100 WBC (Bld) 69.1 % Normal 47-70 [facility] Comment on above: Order Comment: 109.1 Performed By: #### L 100.0100 ####[facility] [address] [place], [address] Nucleated RBC (Bld) [#/Vol] 0 10*3/uL Normal 0-5 [facility] Comment on above: Order Comment: 109.1 Performed By: #### L 100.0100 ####[facility] [address] [place], [address] Platelet mean volume (Bld) [Entitic vol] 11.2 fL Normal 6.2-12.0 [facility] Comment on above: Order Comment: 109.1 Performed By: #### L 100.0100 ####[facility] [address] [place], [address] Platelets (Bld) [#/Vol] 226 10*3/uL Normal 150-450 [facility] Comment on above: Order Comment: 109.1 Performed By: #### L 100.0100 ####[facility] [address] [place], [address] RBC (Bld) [#/Vol] 4.44 10*6/uL Low 4.6-6.2 [facility] Comment on above: Order Comment: 109.1 Performed By: #### L 100.0100 ####[facility] [address] [place], [address] RDW SD 41.5 fl Normal 35.1-43.9 [facility] Comment on above: Order Comment: 109.1 Performed By: #### L 100.0100 ####[facility] [address] [place], [address] WBC (Bld) [#/Vol] 10.3 10*3/uL Normal 4.4-11.0 [facility] Comment on above: Order Comment: 109.1 Performed By: #### L 100.0100 ####[facility] [address] [place], [address] CBC-Complete Blood Cnt No Di ffon 02-23-2024 Erythrocyte distribution width (RBC) [Ratio] 12.9 % Normal 11.6-14.6 [facility] Comment on above: Order Comment: 109-1 Performed By: #### L 100.0500, L500.4100, L500.4050 ####[facility] [address] [place], [address] Hematocrit (Bld) [Volume fraction] 41.6 % Normal 40-54 [facility] Comment on above: Order Comment: 109-1 Performed By: #### L 100.0500, L500.4100, L500.4050 ####[facility] [address] [place], [address] Hemoglobin (Bld) [Mass/Vol] 14.0 g/dL Normal 13.0-16.5 [facility] Comment on above: Order Comment: 109-1 Performed By: #### L 100.0500, L500.4100, L500.4050 ####[facility] [address] [place], [address] MCH (RBC) [Entitic mass] 30.6 pg Normal 27.0-32.0 [facility] Comment on above: Order Comment: 109-1 Performed By: #### L 100.0500, L500.4100, L500.4050 ####[facility] [address] [place], [address] MCHC (RBC) [Mass/Vol] 33.7 g/dL Normal 32-36 [facility] Comment on above: Order Comment: 109-1 Performed By: #### L 100.0500, L500.4100, L500.4050 ####[facility] [address] [place], [address] MCV (RBC) [Entitic vol] 91.0 fL Normal 80-94 W [facility] Comment on above: Order Comment: 109-1 Performed By: #### L 100.0500, L500.4100, L500.4050 ####[facility] [address] [place], [address] Platelet mean volume (Bld) [Entitic vol] 11.5 fL Normal 6.2-12.0 [facility] Comment on above: Order Comment: 109-1 Performed By: #### L 100.0500, L500.4100, L500.4050 ####[facility] [address] [place], [address] Platelets (Bld) [#/Vol] 209 10*3/uL Normal 150-450 [facility] Comment on above: Order Comment: 109-1 Performed By: #### L 100.0500, L500.4100, L500.4050 ####[facility] [address] [place], [address] RBC (Bld) [#/Vol] 4.57 10*6/uL Low 4.6-6.2 [facility] Comment on above: Order Comment: 109-1 Performed By: #### L 100.0500, L500.4100, L500.4050 ####[facility] [address] [place], [address] RDW SD 42.4 fl Normal 35.1-43.9 [facility] Comment on above: Order Comment: 109-1 Performed By: #### L 100.0500, L500.4100, L500.4050 ####[facility] [address] [place], [address] WBC (Bld) [#/Vol] 8.4 10*3/uL Normal 4.4-11.0 [facility] Comment on above: Order Comment: 109-1 Performed By: #### L 100.0500, L500.4100, L500.4050 ####[facility] [address] [place], [address] Comprehensive Metabolic Prof ilon 02-23-2024 Albumin [Mass/Vol] 3.1 g/dL Low 3.2-5.0 [facility] Comment on above: Order Comment: 109-1 Performed By: #### L 100.0500, L500.4100, L500.4050 ####[facility] [address] [place], [address] Albumin/Globulin [Mass ratio] 1.1 {ratio} Normal 0.9-2.4 [facility] Comment on above: Order Comment: 109-1 Performed By: #### L 100.0500, L500.4100, L500.4050 ####[facility] [address] [place], [address] ALK P 123 U/L High 45-117 [facility] Comment on above: Order Comment: 109-1 Performed By: #### L 100.0500, L500.4100, L500.4050 ####[facility] [address] [place], [address] ALT [Catalytic activity/Vol] 16 U/L Normal 16-61 [facility] Comment on above: Order Comment: 109-1 Performed By: #### L 100.0500, L500.4100, L500.4050 ####[facility] [address] [place], [address] AST [Catalytic activity/Vol] 10 U/L Low 15-37 [facility] Comment on above: Order Comment: 109-1 Performed By: #### L 100.0500, L500.4100, L500.4050 ####[facility] [address] [place], [address] Bilirubin [Mass/Vol] 0.50 mg/dL Normal 0.20-1.00 [facility] Comment on above: Order Comment: 109-1 Result Comment: For patients on eltrombopag therapy, use of Dimension [place] TBIL is not recommended. Performed By: #### L 100.0500, L500.4100, L500.4050 ####[facility] [address] [place], [address] BUN/CRE 24.9 RATIO High 10-20 [facility] Comment on above: Order Comment: 109-1 Performed By: #### L 100.0500, L500.4100, L500.4050 ####[facility] [address] [place], [address] CA,Total 8.5 mg/dL Normal 8.5-10.1 [facility] Comment on above: Order Comment: 109-1 Performed By: #### L 100.0500, L500.4100, L500.4050 ####[facility] [address] [place], [address] Chloride [Moles/Vol] 109 mmol/L High 98-107 [facility] Comment on above: Order Comment: 109-1 Performed By: #### L 100.0500, L500.4100, L500.4050 ####[facility] [address] [place], [address] CO2 [Moles/Vol] 27.0 mmol/L Normal 21.0-32.0 [facility] Comment on above: Order Comment: 109-1 Performed By: #### L 100.0500, L500.4100, L500.4050 ####[facility] [address] [place], [address] Creatinine [Mass/Vol] 0.64 mg/dL Low 0.70-1.30 [facility] Comment on above: Order Comment: 109-1 Result Comment: The validity of the calculated GFR GFRAA in patients over70 years has not been determined. Clinical correlation isessential. Performed By: #### L 100.0500, L500.4100, L500.4050 ####[facility] [address] [place], [address] EST GFR - AA 160 mL/min Normal >60 [facility] Comment on above: Order Comment: 109-1 Result Comment: Afri can Malaysian GFR Calc Performed By: #### L 100.0500, L500.4100, L500.4050 ####[facility] [address] [place], [address] GAP 6 Normal 5-15 [facility] Comment on above: Order Comment: 109-1 Performed By: #### L 100.0500, L500.4100, L500.4050 ####[facility] [address] [place], [address] GFR/1.73 sq M.predicted among non-blacks MDRD (S/P/Bld) [Vol rate/Area] 132 mL/min/{1.73_m2} Normal >60 [facility] Comment on above: Order Comment: 109-1 Result Comment: Non- GFR Calc Performed By: #### L 100.0500, L500.4100, L500.4050 ####[facility] [address] [place], [address] Globulin (S) [Mass/Vol] 2.9 g/dL Normal 2.2-4.2 [facility] Comment on above: Order Comment: 109-1 Performed By: #### L 100.0500, L500.4100, L500.4050 ####[facility] [address] [place], [address] Glucose [Mass/Vol] 111 mg/dL High 74-106 [facility] Comment on above: Order Comment: 109-1 Result Comment: Fast ing Glucose result from 100 to 125 mg/dLsuggests IMPAIRED HOMEOSTASIS per A.D.A. criteria. Performed By: #### L 100.0500, L500.4100, L500.4050 ####[facility] [address] [place], [address] Potassium [Moles/Vol] 3.6 mmol/L Normal 3.5-5.1 [facility] Comment on above: Order Comment: 109-1 Performed By: #### L 100.0500, L500.4100, L500.4050 ####[facility] [address] [place], [address] Sodium [Moles/Vol] 141 mmol/L Normal 136-145 [facility] Comment on above: Order Comment: 109-1 Performed By: #### L 100.0500, L500.4100, L500.4050 ####[facility] [address] [place], [address] T PROT 6.0 g/dL Low 6.4-8.2 [facility] Comment on above: Order Comment: 109-1 Performed By: #### L 100.0500, L500.4100, L500.4050 ####[facility] [address] [place], [address] Urea nitrogen [Mass/Vol] 16 mg/dL Normal 7-18 [facility] Comment on above: Order Comment: 109-1 Performed By: #### L 100.0500, L500.4100, L500.4050 ####[facility] [address] [place], [address] Lipid Profileon 02-23-2024 Cholesterol [Mass/Vol] 123 mg/dL Normal 200 [facility] Comment on above: Order Comment: 109-1 Result Comment: <200 mg/dL Desirable 200-240 mg/dL Borderline >240 mg/dL High Risk Performed By: #### L 100.0500, L500.4100, L500.4050 ####[facility] [address] [place], [address] Cholesterol in HDL [Mass/Vol] 28 mg/dL Low [facility] Comment on above: Order Comment: 109-1 Result Comment: The drugs N-Acetylcysteine and Metamizole may falselydepress this assay. Reference Range HDL <40 mg/dL Low HDL Cholesterol HDL >or= 60 mg/dL High HDL Cholesterol Performed By: #### L 100.0500, L500.4100, L500.4050 ####[facility] [address] [place], [address] Cholesterol in LDL [Mass/Vol] 71 mg/dL Normal 0-130 [facility] Comment on above: Order Comment: 109-1 Performed By: #### L 100.0500, L500.4100, L500.4050 ####[facility] [address] [place], [address] Cholesterol in VLDL [Mass/Vol] 24 mg/dL Normal 5-40 [facility] Comment on above: Order Comment: 109-1 Performed By: #### L 100.0500, L500.4100, L500.4050 ####[facility] [address] [place], [address] Triglyceride [Mass/Vol] 119 mg/dL Normal W [facility] Comment on above: Order Comment: 109-1 Result Comment: The drugs N-Acetylcysteine and Metamizole may falselydepress this assay.Serum Triglycerides Reference Interval Normal <150 mg/dL Borderline high 150 - 199 mg/dL High 200 - 499 mg/dL Very High > or = 500 mg/dL Performed By: #### L 100.0500, L500.4100, L500.4050 ####[facility] [address] [place], [address] CBC W/Diff, Automatedon 10-2 Absolute Lymph 1.92 X10 3/uL Normal 0.83-4.51 [facility] Comment on above: Order Comment: 109-1 Performed By: #### L 100.0100 ####[facility] [address] [place], [address] Absolute Neut 6.9 X10 3/uL Normal 2.0-7.7 [facility] Comment on above: Order Comment: 109-1 Performed By: #### L 100.0100 ####[facility] [address] [place], [address] Basophils/100 WBC (Bld) 0.4 % Normal 0-1 W [facility] Comment on above: Order Comment: 109-1 Performed By: #### L 100.0100 ####[facility] [address] [place], [address] Eosinophils/100 WBC (Bld) 0.6 % Normal 0-5 [facility] Comment on above: Order Comment: 109-1 Performed By: #### L 100.0100 ####[facility] [address] [place], [address] Erythrocyte distribution width (RBC) [Ratio] 12.9 % Normal 11.6-14.6 [facility] Comment on above: Order Comment: 109-1 Performed By: #### L 100.0100 ####[facility] [address] [place], [address] Hematocrit (Bld) [Volume fraction] 40.4 % Normal 40-54 [facility] Comment on above: Order Comment: 109-1 Performed By: #### L 100.0100 ####[facility] [address] [place], [address] Hemoglobin (Bld) [Mass/Vol] 13.3 g/dL Normal 13.0-16.5 [facility] Comment on above: Order Comment: 109-1 Performed By: #### L 100.0100 ####[facility] [address] [place], [address] IG% 0.300 Normal 0.0-0.9 [facility] Comment on above: Order Comment: 109-1 Result Comment: IG% - Immature Granulocytes (promyelocytes, myelocytes andmetamyelocytes) > 1% indicates that a LEFT SHIFT is Present. Performed By: #### L 100.0100 ####[facility] [address] [place], [address] Lymphocytes/100 WBC (Bld) 20.1 % Normal 19-41 [facility] Comment on above: Order Comment: 109-1 Performed By: #### L 100.0100 ####[facility] [address] [place], [address] MCH (RBC) [Entitic mass] 30.2 pg Normal 27.0-32.0 [facility] Comment on above: Order Comment: 109-1 Performed By: #### L 100.0100 ####[facility] [address] [place], [address] MCHC (RBC) [Mass/Vol] 32.9 g/dL Normal 32-36 [facility] Comment on above: Order Comment: 109-1 Performed By: #### L 100.0100 ####[facility] [address] [place], [address] MCV (RBC) [Entitic vol] 91.6 fL Normal 80-94 [facility] Comment on above: Order Comment: 109-1 Performed By: #### L 100.0100 ####[facility] [address] [place], [address] Monocytes/100 WBC (Bld) 6.8 % Normal 0-10 [facility] Comment on above: Order Comment: 109-1 Performed By: #### L 100.0100 ####[facility] [address] [place], [address] Neutrophils/100 WBC (Bld) 71.8 % High 47-70 [facility] Comment on above: Order Comment: 109-1 Performed By: #### L 100.0100 ####[facility] [address] [place], [address] Nucleated RBC (Bld) [#/Vol] 0 10*3/uL Normal 0-5 [facility] Comment on above: Order Comment: 109-1 Performed By: #### L 100.0100 ####[facility] [address] [place], [address] Platelet mean volume (Bld) [Entitic vol] 10.9 fL Normal 6.2-12.0 [facility] Comment on above: Order Comment: 109-1 Performed By: #### L 100.0100 ####[facility] [address] [place], [address] Platelets (Bld) [#/Vol] 209 10*3/uL Normal 150-450 [facility] Comment on above: Order Comment: 109-1 Performed By: #### L 100.0100 ####[facility] [address] [place], [address] RBC (Bld) [#/Vol] 4.41 10*6/uL Low 4.6-6.2 [facility] Comment on above: Order Comment: 109-1 Performed By: #### L 100.0100 ####[facility] [address] [place], [address] RDW SD 42.8 fl Normal 35.1-43.9 [facility] Comment on above: Order Comment: 109-1 Performed By: #### L 100.0100 ####[facility] [address] [place], [address] WBC (Bld) [#/Vol] 9.6 10*3/uL Normal 4.4-11.0 [facility] Comment on above: Order Comment: 109-1 Performed By: #### L 100.0100 ####[facility] [address] [place], [address] CBC W/Diff, Automatedon 10- Absolute Lymph 2.08 X10 3/uL Normal 0.83-4.51 [facility] Comment on above: Order Comment: 109.1 Performed By: #### L 100.0100 ####[facility] [address] [place], [address] Absolute Neut 6.9 X10 3/uL Normal 2.0-7.7 [facility] Comment on above: Order Comment: 109.1 Performed By: #### L 100.0100 ####[facility] [address] [place], [address] Basophils/100 WBC (Bld) 0.5 % Normal 0-1 [facility] Comment on above: Order Comment: 109.1 Performed By: #### L 100.0100 ####[facility] [address] [place], [address] Eosinophils/100 WBC (Bld) 0.3 % Normal 0-5 [facility] Comment on above: Order Comment: 109.1 Performed By: #### L 100.0100 ####[facility] [address] [place], [address] Erythrocyte distribution width (RBC) [Ratio] 12.8 % Normal 11.6-14.6 [facility] Comment on above: Order Comment: 109.1 Performed By: #### L 100.0100 ####[facility] [address] [place], [address] Hematocrit (Bld) [Volume fraction] 40.6 % Normal 40-54 [facility] Comment on above: Order Comment: 109.1 Performed By: #### L 100.0100 ####[facility] [address] [place], [address] Hemoglobin (Bld) [Mass/Vol] 13.1 g/dL Normal 13.0-16.5 [facility] Comment on above: Order Comment: 109.1 Performed By: #### L 100.0100 ####[facility] [address] [place], [address] IG% 0.300 Normal 0.0-0.9 [facility] Comment on above: Order Comment: 109.1 Result Comment: IG% - Immature Granulocytes (promyelocytes, myelocytes andmetamyelocytes) > 1% indicates that a LEFT SHIFT is Present. Performed By: #### L 100.0100 ####[facility] [address] [place], [address] Lymphocytes/100 WBC (Bld) 21.2 % Normal 19-41 [facility] Comment on above: Order Comment: 109.1 Performed By: #### L 100.0100 ####[facility] [address] [place], [address] MCH (RBC) [Entitic mass] 29.8 pg Normal 27.0-32.0 [facility] Comment on above: Order Comment: 109.1 Performed By: #### L 100.0100 ####[facility] [address] [place], [address] MCHC (RBC) [Mass/Vol] 32.3 g/dL Normal 32-36 [facility] Comment on above: Order Comment: 109.1 Performed By: #### L 100.0100 ####[facility] [address] [place], [address] MCV (RBC) [Entitic vol] 92.5 fL Normal 80-94 [facility] Comment on above: Order Comment: 109.1 Performed By: #### L 100.0100 ####[facility] [address] [place], [address] Monocytes/100 WBC (Bld) 7.6 % Normal 0-10 [facility] Comment on above: Order Comment: 109.1 Performed By: #### L 100.0100 ####[facility] [address] [place], [address] Neutrophils/100 WBC (Bld) 70.1 % High 47-70 [facility] Comment on above: Order Comment: 109.1 Performed By: #### L 100.0100 ####[facility] [address] [place], [address] Nucleated RBC (Bld) [#/Vol] 0 10*3/uL Normal 0-5 [facility] Comment on above: Order Comment: 109.1 Performed By: #### L 100.0100 ####[facility] [address] [place], [address] Platelet mean volume (Bld) [Entitic vol] 10.8 fL Normal 6.2-12.0 [facility] Comment on above: Order Comment: 109.1 Performed By: #### L 100.0100 ####[facility] [address] [place], [address] Platelets (Bld) [#/Vol] 221 10*3/uL Normal 150-450 [facility] Comment on above: Order Comment: 109.1 Performed By: #### L 100.0100 ####[facility] [address] [place], [address] RBC (Bld) [#/Vol] 4.39 10*6/uL Low 4.6-6.2 [facility] Comment on above: Order Comment: 109.1 Performed By: #### L 100.0100 ####[facility] [address] [place], [address] RDW SD 43.4 fl Normal 35.1-43.9 [facility] Comment on above: Order Comment: 109.1 Performed By: #### L 100.0100 ####[facility] [address] [place], [address] WBC (Bld) [#/Vol] 9.8 10*3/uL Normal 4.4-11.0 [facility] Comment on above: Order Comment: 109.1 Performed By: #### L 100.0100 ####[facility] [address] [place], [address] CBC W/Diff, Automatedon 10-0 7-4 Absolute Lymph 2.06 X10 3/uL Normal 0.83-4.51 [facility] Comment on above: Order Comment: 109.1 Performed By: #### L 100.0100 ####[facility] [address] [place], [address] Absolute Neut 4.8 X10 3/uL Normal 2.0-7.7 [facility] Comment on above: Order Comment: 109.1 Performed By: #### L 100.0100 ####[facility] [address] [place], [address] Basophils/100 WBC (Bld) 0.7 % Normal 0-1 W [facility] Comment on above: Order Comment: 109.1 Performed By: #### L 100.0100 ####[facility] [address] [place], [address] Eosinophils/100 WBC (Bld) 0.5 % Normal 0-5 [facility] Comment on above: Order Comment: 109.1 Performed By: #### L 100.0100 ####[facility] [address] [place], [address] Erythrocyte distribution width (RBC) [Ratio] 13.2 % Normal 11.6-14.6 [facility] Comment on above: Order Comment: 109.1 Performed By: #### L 100.0100 ####[facility] [address] [place], [address] Hematocrit (Bld) [Volume fraction] 42.7 % Normal 40-54 [facility] Comment on above: Order Comment: 109.1 Performed By: #### L 100.0100 ####[facility] [address] [place], [address] Hemoglobin (Bld) [Mass/Vol] 13.5 g/dL Normal 13.0-16.5 [facility] Comment on above: Order Comment: 109.1 Performed By: #### L 100.0100 ####[facility] [address] [place], [address] IG% 0.400 Normal 0.0-0.9 [facility] Comment on above: Order Comment: 109.1 Result Comment: IG% - Immature Granulocytes (promyelocytes, myelocytes andmetamyelocytes) > 1% indicates that a LEFT SHIFT is Present. Performed By: #### L 100.0100 ####[facility] [address] [place], [address] Lymphocytes/100 WBC (Bld) 26.9 % Normal 19-41 [facility] Comment on above: Order Comment: 109.1 Performed By: #### L 100.0100 ####[facility] [address] [place], [address] MCH (RBC) [Entitic mass] 29.3 pg Normal 27.0-32.0 [facility] Comment on above: Order Comment: 109.1 Performed By: #### L 100.0100 ####[facility] [address] [place], [address] MCHC (RBC) [Mass/Vol] 31.6 g/dL Low 32-36 [facility] Comment on above: Order Comment: 109.1 Performed By: #### L 100.0100 ####[facility] [address] [place], [address] MCV (RBC) [Entitic vol] 92.8 fL Normal 80-94 [facility] Comment on above: Order Comment: 109.1 Performed By: #### L 100.0100 ####[facility] [address] [place], [address] Monocytes/100 WBC (Bld) 9.3 % Normal 0-10 [facility] Comment on above: Order Comment: 109.1 Performed By: #### L 100.0100 ####[facility] [address] [place], [address] Neutrophils/100 WBC (Bld) 62.2 % Normal 47-70 [facility] Comment on above: Order Comment: 109.1 Performed By: #### L 100.0100 ####[facility] [address] [place], [address] Nucleated RBC (Bld) [#/Vol] 0 10*3/uL Normal 0-5 [facility] Comment on above: Order Comment: 109.1 Performed By: #### L 100.0100 ####[facility] [address] [place], [address] Platelet mean volume (Bld) [Entitic vol] 11.2 fL Normal 6.2-12.0 [facility] Comment on above: Order Comment: 109.1 Performed By: #### L 100.0100 ####[facility] [address] [place], [address] Platelets (Bld) [#/Vol] 192 10*3/uL Normal 150-450 [facility] Comment on above: Order Comment: 109.1 Performed By: #### L 100.0100 ####[facility] [address] [place], [address] RBC (Bld) [#/Vol] 4.60 10*6/uL Normal 4.6-6.2 [facility] Comment on above: Order Comment: 109.1 Performed By: #### L 100.0100 ####[facility] [address] [place], [address] RDW SD 44.9 fl High 35.1-43.9 [facility] Comment on above: Order Comment: 109.1 Performed By: #### L 100.0100 ####[facility] [address] [place], [address] WBC (Bld) [#/Vol] 7.7 10*3/uL Normal 4.4-11.0 [facility] Comment on above: Order Comment: 109.1 Performed By: #### L 100.0100 ####[facility] [address] [place], [address] CBC W/Diff, Automatedon 09-3 0-4 Absolute Lymph 2.12 X10 3/uL Normal 0.83-4.51 [facility] Comment on above: Order Comment: 109.1 Performed By: #### L 100.0100 ####[facility] [address] [place], [address] Absolute Neut 5.2 X10 3/uL Normal 2.0-7.7 [facility] Comment on above: Order Comment: 109.1 Performed By: #### L 100.0100 ####[facility] [address] [place], [address] Basophils/100 WBC (Bld) 0.6 % Normal 0-1 [facility] Comment on above: Order Comment: 109.1 Performed By: #### L 100.0100 ####[facility] [address] [place], [address] Eosinophils/100 WBC (Bld) 0.5 % Normal 0-5 [facility] Comment on above: Order Comment: 109.1 Performed By: #### L 100.0100 ####[facility] [address] [place], [address] Erythrocyte distribution width (RBC) [Ratio] 13.2 % Normal 11.6-14.6 [facility] Comment on above: Order Comment: 109.1 Performed By: #### L 100.0100 ####[facility] [address] [place], [address] Hematocrit (Bld) [Volume fraction] 46.0 % Normal 40-54 [facility] Comment on above: Order Comment: 109.1 Performed By: #### L 100.0100 ####[facility] [address] [place], [address] Hemoglobin (Bld) [Mass/Vol] 14.5 g/dL Normal 13.0-16.5 [facility] Comment on above: Order Comment: 109.1 Performed By: #### L 100.0100 ####[facility] [address] [place], [address] IG% 0.200 Normal 0.0-0.9 [facility] Comment on above: Order Comment: 109.1 Result Comment: IG% - Immature Granulocytes (promyelocytes, myelocytes andmetamyelocytes) > 1% indicates that a LEFT SHIFT is Present. Performed By: #### L 100.0100 ####[facility] [address] [place], [address] Lymphocytes/100 WBC (Bld) 25.9 % Normal 19-41 [facility] Comment on above: Order Comment: 109.1 Performed By: #### L 100.0100 ####[facility] [address] [place], [address] MCH (RBC) [Entitic mass] 29.2 pg Normal 27.0-32.0 [facility] Comment on above: Order Comment: 109.1 Performed By: #### L 100.0100 ####[facility] [address] [place], [address] MCHC (RBC) [Mass/Vol] 31.5 g/dL Low 32-36 [facility] Comment on above: Order Comment: 109.1 Performed By: #### L 100.0100 ####[facility] [address] [place], [address] MCV (RBC) [Entitic vol] 92.7 fL Normal 80-94 [facility] Comment on above: Order Comment: 109.1 Performed By: #### L 100.0100 ####[facility] [address] [place], [address] Monocytes/100 WBC (Bld) 9.0 % Normal 0-10 [facility] Comment on above: Order Comment: 109.1 Performed By: #### L 100.0100 ####[facility] [address] [place], [address] Neutrophils/100 WBC (Bld) 63.8 % Normal 47-70 [facility] Comment on above: Order Comment: 109.1 Performed By: #### L 100.0100 ####[facility] [address] [place], [address] Nucleated RBC (Bld) [#/Vol] 0 10*3/uL Normal 0-5 [facility] Comment on above: Order Comment: 109.1 Performed By: #### L 100.0100 ####[facility] [address] [place], [address] Platelet mean volume (Bld) [Entitic vol] 10.9 fL Normal 6.2-12.0 [facility] Comment on above: Order Comment: 109.1 Performed By: #### L 100.0100 ####[facility] [address] [place], [address] Platelets (Bld) [#/Vol] 192 10*3/uL Normal 150-450 [facility] Comment on above: Order Comment: 109.1 Performed By: #### L 100.0100 ####[facility] [address] [place], [address] RBC (Bld) [#/Vol] 4.96 10*6/uL Normal 4.6-6.2 [facility] Comment on above: Order Comment: 109.1 Performed By: #### L 100.0100 ####[facility] [address] [place], [address] RDW SD 44.6 fl High 35.1-43.9 [facility] Comment on above: Order Comment: 109.1 Performed By: #### L 100.0100 ####[facility] [address] [place], [address] WBC (Bld) [#/Vol] 8.2 10*3/uL Normal 4.4-11.0 [facility] Comment on above: Order Comment: 109.1 Performed By: #### L 100.0100 ####[facility] [address] [place], [address] CBC W/Diff, Automatedon 09-2 3-2023 Absolute Lymph 1.62 X10 3/uL Normal 0.83-4.51 [facility] Comment on above: Order Comment: 109-1 Performed By: #### L 100.0100 ####[facility] [address] [place], [address] Absolute Neut 8.1 X10 3/uL High 2.0-7.7 [facility] Comment on above: Order Comment: 109-1 Performed By: #### L 100.0100 ####[facility] [address] [place], [address] Basophils/100 WBC (Bld) 0.4 % Normal 0-1 [facility] Comment on above: Order Comment: 109-1 Performed By: #### L 100.0100 ####[facility] [address] [place], [address] Eosinophils/100 WBC (Bld) 0.1 % Normal 0-5 [facility] Comment on above: Order Comment: 109-1 Performed By: #### L 100.0100 ####[facility] [address] [place], [address] Erythrocyte distribution width (RBC) [Ratio] 12.9 % Normal 11.6-14.6 [facility] Comment on above: Order Comment: 109-1 Performed By: #### L 100.0100 ####[facility] [address] [place], [address] Hematocrit (Bld) [Volume fraction] 41.9 % Normal 40-54 [facility] Comment on above: Order Comment: 109-1 Performed By: #### L 100.0100 ####[facility] [address] [place], [address] Hemoglobin (Bld) [Mass/Vol] 13.5 g/dL Normal 13.0-16.5 [facility] Comment on above: Order Comment: 109-1 Performed By: #### L 100.0100 ####[facility] [address] [place], [address] IG% 0.400 Normal 0.0-0.9 [facility] Comment on above: Order Comment: 109-1 Result Comment: IG% - Immature Granulocytes (promyelocytes, myelocytes andmetamyelocytes) > 1% indicates that a LEFT SHIFT is Present. Performed By: #### L 100.0100 ####[facility] [address] [place], [address] Lymphocytes/100 WBC (Bld) 15.2 % Low 19-41 [facility] Comment on above: Order Comment: 109-1 Performed By: #### L 100.0100 ####[facility] [address] [place], [address] MCH (RBC) [Entitic mass] 29.3 pg Normal 27.0-32.0 [facility] Comment on above: Order Comment: 109-1 Performed By: #### L 100.0100 ####[facility] [address] [place], [address] MCHC (RBC) [Mass/Vol] 32.2 g/dL Normal 32-36 [facility] Comment on above: Order Comment: 109-1 Performed By: #### L 100.0100 ####[facility] [address] [place], [address] MCV (RBC) [Entitic vol] 90.9 fL Normal 80-94 [facility] Comment on above: Order Comment: 109-1 Performed By: #### L 100.0100 ####[facility] [address] [place], [address] Monocytes/100 WBC (Bld) 7.4 % Normal 0-10 [facility] Comment on above: Order Comment: 109-1 Performed By: #### L 100.0100 ####[facility] [address] [place], [address] Neutrophils/100 WBC (Bld) 76.5 % High 47-70 [facility] Comment on above: Order Comment: 109-1 Performed By: #### L 100.0100 ####[facility] [address] [place], [address] Nucleated RBC (Bld) [#/Vol] 0 10*3/uL Normal 0-5 [facility] Comment on above: Order Comment: 109-1 Performed By: #### L 100.0100 ####[facility] [address] [place], [address] Platelet mean volume (Bld) [Entitic vol] 11.2 fL Normal 6.2-12.0 [facility] Comment on above: Order Comment: 109-1 Performed By: #### L 100.0100 ####[facility] [address] [place], [address] Platelets (Bld) [#/Vol] 220 10*3/uL Normal 150-450 [facility] Comment on above: Order Comment: 109-1 Performed By: #### L 100.0100 ####[facility] [address] [place], [address] RBC (Bld) [#/Vol] 4.61 10*6/uL Normal 4.6-6.2 [facility] Comment on above: Order Comment: 109-1 Performed By: #### L 100.0100 ####[facility] [address] [place], [address] RDW SD 42.1 fl Normal 35.1-43.9 [facility] Comment on above: Order Comment: 109-1 Performed By: #### L 100.0100 ####[facility] [address] [place], [address] WBC (Bld) [#/Vol] 10.6 10*3/uL Normal 4.4-11.0 [facility] Comment on above: Order Comment: 109-1 Performed By: #### L 100.0100 ####[facility] [address] [place], [address] CBC W/Diff, Automatedon - Absolute Lymph 2.15 X10 3/uL Normal 0.83-4.51 [facility] Comment on above: Order Comment: 109-1 Performed By: #### L 100.0100 ####[facility] [address] [place], [address] Absolute Neut 5.4 X10 3/uL Normal 2.0-7.7 [facility] Comment on above: Order Comment: 109-1 Performed By: #### L 100.0100 ####[facility] [address] [place], [address] Basophils/100 WBC (Bld) 0.7 % Normal 0-1 [facility] Comment on above: Order Comment: 109-1 Performed By: #### L 100.0100 ####[facility] [address] [place], [address] Eosinophils/100 WBC (Bld) 0.7 % Normal 0-5 [facility] Comment on above: Order Comment: 109-1 Performed By: #### L 100.0100 ####[facility] [address] [place], [address] Erythrocyte distribution width (RBC) [Ratio] 13.1 % Normal 11.6-14.6 [facility] Comment on above: Order Comment: 109-1 Performed By: #### L 100.0100 ####[facility] [address] [place], [address] Hematocrit (Bld) [Volume fraction] 44.1 % Normal 40-54 [facility] Comment on above: Order Comment: 109-1 Performed By: #### L 100.0100 ####[facility] [address] [place], [address] Hemoglobin (Bld) [Mass/Vol] 14.2 g/dL Normal 13.0-16.5 [facility] Comment on above: Order Comment: 109-1 Performed By: #### L 100.0100 ####[facility] [address] [place], [address] IG% 0.400 Normal 0.0-0.9 [facility] Comment on above: Order Comment: 109-1 Result Comment: IG% - Immature Granulocytes (promyelocytes, myelocytes andmetamyelocytes) > 1% indicates that a LEFT SHIFT is Present. Performed By: #### L 100.0100 ####[facility] [address] [place], [address] Lymphocytes/100 WBC (Bld) 25.7 % Normal 19-41 [facility] Comment on above: Order Comment: 109-1 Performed By: #### L 100.0100 ####[facility] [address] [place], [address] MCH (RBC) [Entitic mass] 29.5 pg Normal 27.0-32.0 [facility] Comment on above: Order Comment: 109-1 Performed By: #### L 100.0100 ####[facility] [address] [place], [address] MCHC (RBC) [Mass/Vol] 32.2 g/dL Normal 32-36 [facility] Comment on above: Order Comment: 109-1 Performed By: #### L 100.0100 ####[facility] [address] [place], [address] MCV (RBC) [Entitic vol] 91.7 fL Normal 80-94 [facility] Comment on above: Order Comment: 109-1 Performed By: #### L 100.0100 ####[facility] [address] [place], [address] Monocytes/100 WBC (Bld) 7.5 % Normal 0-10 [facility] Comment on above: Order Comment: 109-1 Performed By: #### L 100.0100 ####[facility] [address] [place], [address] Neutrophils/100 WBC (Bld) 65.0 % Normal 47-70 [facility] Comment on above: Order Comment: 109-1 Performed By: #### L 100.0100 ####[facility] [address] [place], [address] Nucleated RBC (Bld) [#/Vol] 0 10*3/uL Normal 0-5 [facility] Comment on above: Order Comment: 109-1 Performed By: #### L 100.0100 ####[facility] [address] [place], [address] Platelet mean volume (Bld) [Entitic vol] 11.1 fL Normal 6.2-12.0 [facility] Comment on above: Order Comment: 109-1 Performed By: #### L 100.0100 ####[facility] [address] [place], [address] Platelets (Bld) [#/Vol] 200 10*3/uL Normal 150-450 [facility] Comment on above: Order Comment: 109-1 Performed By: #### L 100.0100 ####[facility] [address] [place], [address] RBC (Bld) [#/Vol] 4.81 10*6/uL Normal 4.6-6.2 [facility] Comment on above: Order Comment: 109-1 Performed By: #### L 100.0100 ####[facility] [address] [place], [address] RDW SD 44.1 fl High 35.1-43.9 [facility] Comment on above: Order Comment: 109-1 Performed By: #### L 100.0100 ####[facility] [address] [place], [address] WBC (Bld) [#/Vol] 8.4 10*3/uL Normal 4.4-11.0 [facility] Comment on above: Order Comment: 109-1 Performed By: #### L 100.0100 ####[facility] [address] [place], [address] CBC W/Diff, Automatedon 09-0 -2023 Absolute Lymph 3.20 X10 3/uL Normal 0.83-4.51 [facility] Comment on above: Order Comment: 109-1 Performed By: #### L 100.0100 ####[facility] [address] [place], [address] Absolute Neut 5.5 X10 3/uL Normal 2.0-7.7 [facility] Comment on above: Order Comment: 109-1 Performed By: #### L 100.0100 ####[facility] [address] [place], [address] Basophils/100 WBC (Bld) 0.5 % Normal 0-1 [facility] Comment on above: Order Comment: 109-1 Performed By: #### L 100.0100 ####[facility] [address] [place], [address] Eosinophils/100 WBC (Bld) 0.6 % Normal 0-5 [facility] Comment on above: Order Comment: 109-1 Performed By: #### L 100.0100 ####[facility] [address] [place], [address] Erythrocyte distribution width (RBC) [Ratio] 13.2 % Normal 11.6-14.6 [facility] Comment on above: Order Comment: 109-1 Performed By: #### L 100.0100 ####[facility] [address] [place], [address] Hematocrit (Bld) [Volume fraction] 44.3 % Normal 40-54 [facility] Comment on above: Order Comment: 109-1 Performed By: #### L 100.0100 ####[facility] [address] [place], [address] Hemoglobin (Bld) [Mass/Vol] 14.4 g/dL Normal 13.0-16.5 [facility] Comment on above: Order Comment: 109-1 Performed By: #### L 100.0100 ####[facility] [address] [place], [address] IG% 0.400 Normal 0.0-0.9 [facility] Comment on above: Order Comment: 109-1 Result Comment: IG% - Immature Granulocytes (promyelocytes, myelocytes andmetamyelocytes) > 1% indicates that a LEFT SHIFT is Present. Performed By: #### L 100.0100 ####[facility] [address] [place], [address] Lymphocytes/100 WBC (Bld) 31.4 % Normal 19-41 [facility] Comment on above: Order Comment: 109-1 Performed By: #### L 100.0100 ####[facility] [address] [place], [address] MCH (RBC) [Entitic mass] 29.8 pg Normal 27.0-32.0 [facility] Comment on above: Order Comment: 109-1 Performed By: #### L 100.0100 ####[facility] [address] [place], [address] MCHC (RBC) [Mass/Vol] 32.5 g/dL Normal 32-36 [facility] Comment on above: Order Comment: 109-1 Performed By: #### L 100.0100 ####[facility] [address] [place], [address] MCV (RBC) [Entitic vol] 91.7 fL Normal 80-94 [facility] Comment on above: Order Comment: 109-1 Performed By: #### L 100.0100 ####[facility] [address] [place], [address] Monocytes/100 WBC (Bld) 12.8 % High 0-10 [facility] Comment on above: Order Comment: 109-1 Performed By: #### L 100.0100 ####[facility] [address] [place], [address] Neutrophils/100 WBC (Bld) 54.3 % Normal 47-70 [facility] Comment on above: Order Comment: 109-1 Performed By: #### L 100.0100 ####[facility] [address] [place], [address] Nucleated RBC (Bld) [#/Vol] 0 10*3/uL Normal 0-5 [facility] Comment on above: Order Comment: 109-1 Performed By: #### L 100.0100 ####[facility] [address] [place], [address] Platelet mean volume (Bld) [Entitic vol] 11.9 fL Normal 6.2-12.0 [facility] Comment on above: Order Comment: 109-1 Performed By: #### L 100.0100 ####[facility] [address] [place], [address] Platelets (Bld) [#/Vol] 187 10*3/uL Normal 150-450 [facility] Comment on above: Order Comment: 109-1 Performed By: #### L 100.0100 ####[facility] [address] [place], [address] RBC (Bld) [#/Vol] 4.83 10*6/uL Normal 4.6-6.2 [facility] Comment on above: Order Comment: 109-1 Performed By: #### L 100.0100 ####[facility] [address] [place], [address] RDW SD 44.3 fl High 35.1-43.9 [facility] Comment on above: Order Comment: 109-1 Performed By: #### L 100.0100 ####[facility] [address] [place], [address] WBC (Bld) [#/Vol] 10.2 10*3/uL Normal 4.4-11.0 [facility] Comment on above: Order Comment: 109-1 Performed By: #### L 100.0100 ####[facility] [address] [place], [address] Progress Noteon 11-22-2023 Progress Note Speech-Language Pathology SPEECH LANGUAGE PATHOLOGY [facility] & 's Modified Barium Swallow Study Patient Name: Kathya [...] despite effort. 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 Frequency: Per treating CONTINUOUS DRIER HELPER Barriers: large osteophytes, bridging with anterior projection [...] Prior MBSS?: No, unable to locate in [facility] Current Diet: Puree diet with ?liquid (no information from [place]) Textures tested: - thin liquid, (cup edge) - mildly thick liquid, (cup edge) - puree, (teaspoon) Patient position: lateral Past Medical History: Past Medical History: Diagnosis Date TREVER (acute kidney injury) (CMS/HCC) ([facility]) Alcohol abuse 07/08/2018 Anxiety C1 spinal cord injury ([facility]) ([facility]) Depression Fall 06/2018 Schizophrenia ([facility]) Past Surgical History: Past Surgical History: Procedure Laterality Date CERVICAL FUSION 07/09/2014 C2-6 cervical fusion GASTROSTOMY TUBE PLACEMENT 07/13/2018 TRACHEOSTOMY 07/13/2018 Admission Diagnosis: Patient Active Problem List Diagnosis Date Noted Respiratory syncytial virus (RSV) 03/22/2021 Hypoxia 03/19/2021 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[facility]) ([facility]) 08/16/2018 Chronic latent schizophrenia ([facility]) 08/15/2018 Prolonged Q-T interval on ECG 08/15/2018 Abdominal wall abscess 08/15/2018 Central cord syndrome ([facility]) ([facility]) 08/15/2018 Respiratory failure after trauma ([facility]) 08/15/2018 Pressure ulcer of sacral region, stage 2 ([facility]) 08/09/2018 Urinary retention 07/28/2018 Acute respiratory failure with hypoxia ([facility]) 07/26/2018 Mild bibasilar atelectasis 07/26/2018 Hospital-acquired pneumonia 07/26/2018 Bilateral pleural effusion 07/26/2018 Ileus ([facility]) ([facility]) 07/23/2018 TREVER (acute kidney injury) ([facility]) 07/23/2018 Hypokalemia 07/21/2018 Vertebral artery occlusion, bilateral 07/11/2018 Vitamin D insufficiency 07/10/2018 Alcohol abuse 07/08/2018 Closed wedge compression fracture of first thoracic vertebra ([facility]) 07/08/2018 Traumatic nondisp spondylolisthesis of C3 vertebra with closed fx, initial encounter ([facility]) 07/08/2018 Closed fracture dislocation of cervical spine ([facility]) 07/08/2018 Pain: Pt denies any current pain. Reason for current admission: Pt with h/o of PEG and trach from 2019. Pt is currently decannulated. H/o Biomedical Engineering Aide cervical fusion C2-C6. Noted very large connective [...] posterior spill (more content not included)... Normal [facility] RF videography Hypopharynx a nd Esophagus Views for swallowing function W speech and W barium contrast Rosalino 11-22-2023 Abnormal findings as described above. Please refer to the speech pathologist 's report for additional details and recommendations. Report Dictated on Electronically Signed By: Nir Cancino MD Electronically Signed Date/Time: 11/22/2023 1:57 PM EDT [facility] Patient Name: KATHYA HOOPER DOB: 1955 Exam Date/Time: 11/22/2023 12:53 Procedure: FL [...] not visualized in this exam for evaluation. [facility] Nir Cancino MD - 11/22/2023 Patient [...] Electronically Signed Date/Time: 11/22/2023 1:57 PM EDT [facility] Radiology Study observation (narrative) [facility] videography Hypopharynx a nd Esophagus Views for swallowing function W speech and W barium contrast POOrdered By: Nir Cancino on 11-22-2023 [facility] Work Phone: CBC W Auto Differential pane l (Bld)on 10-02-2023 Basophils (Bld) [#/Vol] 0.0 10*3/uL 0.0 - 0.2 10*3/uL [facility] Basophils/100 WBC (Bld) 0.3 % 0.0 - 2.0 % [facility] Eosinophils (Bld) [#/Vol] 0.0 10*3/uL 0.0 - 0.5 10*3/uL [facility] Eosinophils/100 WBC (Bld) 0.0 % 0.0 - 6.0 % [facility] Erythrocyte distribution width (RBC) [Ratio] 13.0 % 11.5 - 15.0 % [facility] Hematocrit (Bld) [Volume fraction] 37.8 % Low 40.0 - 52.0 % [facility] Hemoglobin (Bld) [Mass/Vol] 13.0 g/dL 13.0 - 18.0 g/dL [facility] Immature granulocytes (Bld) [#/Vol] 0.1 10*3/uL High NINF - 0.1 10*3/uL [facility] Immature granulocytes/100 WBC (Bld) 0.5 % 0.0 - 2.0 % [facility] Interpretation and review of laboratory results Abnormal [facility] Lymphocytes (Bld) [#/Vol] 0.9 10*3/uL Low 1.0 - 4.3 10*3/uL [facility] Lymphocytes/100 WBC (Bld) 8.4 % Low 15.0 - 45.0 % [facility] MCH (RBC) [Entitic mass] 30.3 pg 26.0 - 34.0 pg [facility] MCHC (RBC) [Mass/Vol] 34.4 % 30.5 - 36.0 % [facility] MCV (RBC) [Entitic vol] 88.1 fL 77.0 - 99.0 fL [facility] Monocytes (Bld) [#/Vol] 0.9 10*3/uL 0.0 - 0.9 10*3/uL [facility] Monocytes/100 WBC (Bld) 8.2 % 5.0 - 13.0 % [facility] Neutrophils (Bld) [#/Vol] 8.9 10*3/uL High 1.8 - 7.5 10*3/uL [facility] Neutrophils/100 WBC (Bld) 82.6 % High 38.0 - 82.0 % [facility] Nucleated RBC/100 WBC (Bld) [Ratio] 0.0 % [facility] Platelet mean volume (Bld) [Entitic vol] 10.7 fL 9.0 - 12.7 fL [facility] Platelets (Bld) [#/Vol] 148 10*3/uL 140 - 440 10*3/uL [facility] RBC (Bld) [#/Vol] 4.29 10*6/uL Low 4.40 - 5.9 0 10*6/uL [facility] WBC (Bld) [#/Vol] 10.7 10*3/uL 3.6 - 10.7 10*3/uL [facility] CBC WITH AUTO DIFFERENTIALon 10-02-2023 Basophils (Bld) [#/Vol] 0.0 10*3/uL Normal 0.0-0.2 [facility] Comment on above: Performed By: #### L [id number] #### Associate Civil Engineer: CYNDI LILLY ([id number]) [facility] [address] Basophils/100 WBC (Bld) 0.3 % Normal 0.0-2.0 [facility] Comment on above: Performed By: #### L [id number] #### Associate Civil Engineer: CYNDI LILLY ([id number]) [facility] [address] Eosinophils (Bld) [#/Vol] 0.0 10*3/uL Normal 0.0-0.5 [facility] Comment on above: Performed By: #### L [id number] #### Associate Civil Engineer: CYNDI LILLY ([id number]) [facility] ([facility]) [address] Eosinophils/100 WBC (Bld) 0.0 % Normal 0.0-6.0 [facility] Comment on above: Performed By: #### L [id number] #### Associate Civil Engineer: CYNDI LILLY ([id number]) [facility] [address] Erythrocyte distribution width (RBC) [Ratio] 13.0 % Normal 11.5-15.0 [facility] Comment on above: Performed By: #### L [id number] #### Associate Civil Engineer: CYNDI LILLY ([id number]) [facility] [address] Hematocrit (Bld) [Volume fraction] 37.8 % Low 40.0-52.0 [facility] Comment on above: Performed By: #### L [id number] #### Associate Civil Engineer: CYNDI LILLY ([id number]) [facility] ([facility]) [address] Hemoglobin (Bld) [Mass/Vol] 13.0 g/dL Normal 13.0-18.0 [facility] Comment on above: Performed By: #### L [id number] #### Associate Civil Engineer: CYNDI LILLY ([id number]) [facility] [address] IMMATURE GRANS % 0.5 % Normal 0.0-2.0 [facility] Comment on above: Performed By: #### L [id number] #### Associate Civil Engineer: CYNDI LILLY ([id number]) [facility] ([facility]) [address] IMMATURE GRANS ABSOLUTE 0.1 10*3/uL High <0.1 [facility] Comment on above: Performed By: #### L [id number] #### Associate Civil Engineer: CYNDI LILLY ([id number]) [facility] [address] Lymphocytes (Bld) [#/Vol] 0.9 10*3/uL Low 1.0-4.3 [facility] Comment on above: Performed By: #### L [id number] #### Associate Civil Engineer: CYNDI LILLY ([id number]) [facility] [address] [place] [address] [place] Lymphocytes/100 WBC (Bld) 8.4 % Low 15.0-45.0 [facility] Comment on above: Performed By: #### L [id number] #### Associate Civil Engineer: CYNDI LILLY ([id number]) [facility] [address] MCH (RBC) [Entitic mass] 30.3 pg Normal 26.0-34.0 [facility] Comment on above: Performed By: #### L [id number] #### Associate Civil Engineer: CYNDI LILLY ([id number]) [facility] ([facility]) [address] MCHC 34.4 % Normal 30.5-36.0 [facility] Comment on above: Performed By: #### L [id number] #### Associate Civil Engineer: CYNDI LILLY ([id number]) [facility] ([facility]) [address] MCV (RBC) [Entitic vol] 88.1 fL Normal 77.0-99.0 [facility] Comment on above: Performed By: #### L [id number] #### Associate Civil Engineer: CYNDI LILLY ([id number]) [facility] ([facility]) [address] Monocytes (Bld) [#/Vol] 0.9 10*3/uL Normal 0.0-0.9 [facility] Comment on above: Performed By: #### L [id number] #### Associate Civil Engineer: CYNDI LILLY ([id number]) [facility] ([facility]) [address] Monocytes/100 WBC (Bld) 8.2 % Normal 5.0-13.0 [facility] Comment on above: Performed By: #### L [id number] #### Associate Civil Engineer: CYNDI LILLY ([id number]) [facility] ([facility]) [address] NEUTROPHILS ABSOLUTE 8.9 10*3/uL High 1.8-7.5 [facility] Comment on above: Performed By: #### L [id number] #### Associate Civil Engineer: CYNDI LILLY ([id number]) [facility] ([facility]) [address] Neutrophils/100 WBC (Bld) 82.6 % High 38.0-82.0 [facility] Comment on above: Performed By: #### L [id number] #### Associate Civil Engineer: CYNDI LILLY ([id number]) [facility] [address] NRBC 0.0 /100 WBCs Normal 0.0-2.0 [facility] Comment on above: Performed By: #### L [id number] #### Associate Civil Engineer: CYNDI LILLY ([id number]) [facility] ([facility]) [address] Platelet mean volume (Bld) [Entitic vol] 10.7 fL Normal 9.0-12.7 [facility] Comment on above: Performed By: #### L [id number] #### Associate Civil Engineer: CYNDI DRIVERRADHA ([id number]) [facility] ([facility]) [address] Platelets (Bld) [#/Vol] 148 10*3/uL Normal 140-440 [facility] Comment on above: Performed By: #### L [id number] #### Associate Civil Engineer: CYNDI DRIVERRADHA ([id number]) [facility] ([facility]) [address] RBC (Bld) [#/Vol] 4.29 10*6/uL Low 4.40-5.90 [facility] Comment on above: Performed By: #### L [id number] #### Associate Civil Engineer: CYNDI DRIVERRADHA ([id number]) [facility] ([facility]) [address] WBC (Bld) [#/Vol] 10.7 10*3/uL Normal 3.6-10.7 [facility] Comment on above: Performed By: #### L [id number] #### Associate Civil Engineer: CYNDI LILLY ([id number]) [facility] ([facility]) [address] COMPREHENSIVE METABOLIC PANE Reji 10-02-2023 Albumin [Mass/Vol] 3.7 g/dL Normal 3.5-5.0 [facility] Comment on above: Performed By: #### L [id number], [id number] ####Associate Civil Engineer: CYNDI LILLY ([id number])[facility] ALP [Catalytic activity/Vol] 78 U/L Normal 38-126 [facility] Comment on above: Performed By: #### L AB17, [id number] ####Associate Civil Engineer: CYNDI LILLY ([id number])[facility] ALT [Catalytic activity/Vol] 21 U/L Normal 0-49 [facility] Comment on above: Performed By: #### Alban SMITH, [id number] ####Associate Civil Engineer: CYNDI LILLY ([id number])[facility] Anion gap [Moles/Vol] 10 mmol/L Normal 3-13 [facility] Comment on above: Performed By: #### Alban AB17, [id number] ####Associate Civil Engineer: CYNDI LILLY ([id number])[facility] ([facility])[address] AST [Catalytic activity/Vol] 29 U/L Normal 15-46 [facility] Comment on above: Performed By: #### Alban AB17, [id number] ####Associate Civil Engineer: CYNDI LILLY ([id number])[facility] ([facility])[address] Bilirubin [Mass/Vol] 1.1 mg/dL Normal 0.2-1.3 [facility] Comment on above: Performed By: #### L AB17, [id number] ####Associate Civil Engineer: CYNDI LILLY ([id number])[facility] Calcium [Mass/Vol] 7.8 mg/dL Low 8.4-10.4 [facility] Comment on above: Performed By: #### L AB17, [id number] ####Associate Civil Engineer: CYNDI LILLY ([id number])[facility] [place] (SBHLAB)[address] Chloride [Moles/Vol] 102 mmol/L Normal 98-107 [facility] Comment on above: Performed By: #### Alban AB17, [id number] ####Associate Civil Engineer: CYNDI LILLY ([id number])[facility] ([facility])[address] CO2 [Moles/Vol] 23 mmol/L Normal 22-30 [facility] Comment on above: Performed By: #### Alban SMITH, [id number] ####Associate Civil Engineer: CYNDI LILLY ([id number])[facility] ([facility] Creatinine [Mass/Vol] 0.58 mg/dL Low 0.66-1.25 [facility] Comment on above: Performed By: #### Alban SMITH, [id number] ####Associate Civil Engineer: CYNDI LILLY ([id number])[facility] ([facility])[address] GLOMERULAR FILTRATION RATE ML/MIN/1.73 SQ M.PREDICTED >90.0 Normal >60.0 [facility] Comment on above: Result Comment: Calc ulation based on the Chronic Kidney Disease Epidemiology Collaboration (CKD-EPI) equation refit without adjustment for race Performed By: #### L 17, [id number] ####Associate Civil Engineer: CYNDI LILLY ([id number])[facility] ([facility])[address] [place] [address] [place] Glucose [Mass/Vol] 111 mg/dL High 70-100 [facility] Comment on above: Performed By: #### L AB17, [id number] ####Associate Civil Engineer: CYNDI LILLY ([id number])[facility] ([facility])[address] [place] [address] [place] Potassium [Moles/Vol] 4.0 mmol/L Normal 3.5-5.1 [facility] Comment on above: Performed By: #### L AB17, [id number] ####Associate Civil Engineer: CYNDI VIJAYA ([id number])[facility] [place] [address] Protein [Mass/Vol] 6.5 g/dL Normal 6.3-8.2 [facility] Comment on above: Performed By: #### L AB17, [id number] ####Associate Civil Engineer: CYNDI SMITHJoesphRADHA ([id number])[facility] [place] [address] Sodium [Moles/Vol] 135 mmol/L Normal 135-145 [facility] Comment on above: Performed By: #### L AB17, [id number] ####Associate Civil Engineer: CYNDI SMITHEASTON ([id number])[facility] ([facility])[address] [place] [address] Urea nitrogen [Mass/Vol] 18 mg/dL Normal 9-20 [facility] Comment on above: Performed By: #### L AB17, [id number] ####Associate Civil Engineer: CYNDI SMITHEASTON ([id number])[facility] ([facility])[address] [place] [address] CT HEAD WO IV CONTRASTon CT HEAD WO IV CONTRAST Patient Name: KATHYA YU : 1955 [facility]#: [id number] Exam Date/Time: 10/02/2023 11:03 Procedure: CT HEAD WO IV CONTRAST Ordering Provider: TOLEDO AMY Reason For Exam: Neuro deficit, acute, stroke suspected EXAMINATION: CT HEAD WO IV CONTRAST HISTORY: Neuro deficit, acute, stroke suspected - - - - - [id number] - - - - TECHNIQUE: CT head [...] she has seen him for that day, material handler 1st shift did not report any problems. EMS states [...] has no complaints at this time. Normal [facility] CT Head WO contraston [address] evidence of an acute intracranial abnormality. Report Dictated on Electronically Signed By: Maria Eugenia Ruiz MD Electronically Signed Date/Time: 10/02/2023 11:09 AM T [facility] 1955 [id number] Exam Date/Time: 10/02/2023 11:03 Procedure: CT HEAD WO IV CONTRAST Ordering Provider: TOLEDO AMY Reason For Exam: Neuro deficit, acute, stroke suspected EXAMINATION: CT HEAD WO IV CONTRAST HISTORY: Neuro deficit, acute, stroke suspected - - - - - [id number] - - - - TECHNIQUE: CT head [...] 10/02/2023 Patient Name: [facility] 1955 [id number] Exam Date/Time: 10/02/2023 11:03 Procedure: CT HEAD WO IV CONTRAST Ordering Provider: TOLEDO AMY Reason For Exam: Neuro deficit, acute, stroke suspected EXAMINATION: CT HEAD WO IV CONTRAST HISTORY: Neuro deficit, acute, stroke suspected - - - - - [id number] - - - - TECHNIQUE: CT head [...] Electronically Signed Date/Time: 10/02/2023 11:09 AM EDT [employer] Radiology Study observation (narrative) [facility] alth CT Head WO contrastOrdered B y: Maria Eugenia Ruiz on 10-02-2023 [employer] Work Phone: Comprehensive metabolic 1998 panelon 10-02-2023 Albumin [Mass/Vol] 3.7 g/dL 3.5 - 5.0 g/dL [employer] ALP [Catalytic activity/Vol] 78 U/L 38 - 126 U/L [employer] ALT [Catalytic activity/Vol] 21 U/L 0 - 49 U/L [facility] Anion gap [Moles/Vol] 10 mmol/L 3 - 13 mmol/L [facility] AST [Catalytic activity/Vol] 29 U/L 15 - 46 U/L [facility] Bilirubin [Mass/Vol] 1.1 mg/dL 0.2 - 1 .3 mg/dL [facility] Calcium [Mass/Vol] 7.8 mg/dL Low 8.4 - 10. 4 mg/dL [facility] Chloride [Moles/Vol] 102 mmol/L 98 - 10 7 mmol/L [facility] CO2 [Moles/Vol] 23 mmol/L 22 - 30 mmol/L [facility] Creatinine [Mass/Vol] 0.58 mg/dL Low 0.66 - 1.25 mg/dL [facility] GFR/1.73 sq M.predicted MDRD (S/P/Bld) [Vol rate/Area] - PINF [facility] Comment on above: Calculation based on the Chronic Kidney Disease Epidemiology Collaboration (CKD-EPI) equation refit without adjustment for race Glucose [Mass/Vol] 111 mg/dL High 70 - 100 mg/dL [facility] Interpretation and review of laboratory results Abnormal [facility] Potassium [Moles/Vol] 4.0 mmol/L 3.5 - 5.1 mmol/L [facility] Protein [Mass/Vol] 6.5 g/dL 6.3 - 8.2 g/dL [facility] Sodium [Moles/Vol] 135 mmol/L 135 - 145 mmol/L [facility] Urea nitrogen [Mass/Vol] 18 mg/dL 9 - 20 mg/dL [facility] ECG 12-LEADon 10-02-2023 ECG 12-LEAD IMPRESSION: Sinus tachycardia Left bundle branch block ST elevation secondary to IVCD Electronically Signed On 10-02-2023 12:40:15 EDT by Fei Farooq Normal [facility] ED Nursing Noteon 10-02-2023 ED Nursing Note [facility] at bedside at this time Mami Lantigua RN 10/02/23 1427 Normal [facility] ED Nursing Note This RN gave report to Marnie at [facility] at this time Mami Lantigua RN 10/02/23 1358 Normal [facility] ED Nursing Note This RN went to evaluate patient, was on 2L o2 and does not wear at baseline, plan is dc, this RN turned o2 off to trial patient, spo2 monitor on Mami Lantigua RN 10/02/23 1325 Normal [facility] ED Nursing Note Pt to ct via cart Eloisa Alfaro RN 10/02/23 1043 Normal [facility] ED Nursing Note Pt was brought in vi [facility] from [facility] for Left sided facial droop. Per EMS nurse is new and does not know patient very well but he is A&O x 2 at baseline. Per EMS the nurse states it was 20 mins ago. Contacted nurse that was caring for him and she states that was the first time she has seen him for that day, material handler 1st shift did not report any problems. EMS states [...] facility. Hx of schizophrenia. BS 131. Normal [facility] ED Provider Noteon ED Provider Note [facility] ED eMERGENCY dEPARTMENT eNCOUnter Pt Name: [...] to the emergency department from a local halfway facility where he is currently a resident. [...] History: Diagnosis Date TREVER (acute kidney injury) ([facility]) ([facility]) Alcohol abuse 07/08/2018 Anxiety C1 spinal cord injury ([facility]) ([facility]) Depression Fall 06/2018 Schizophrenia ([facility]) SURGICALHISTORY Past Surgical History: Procedure Laterality [...] EmergencyPhysician): Interpret (more content not included)... Normal [facility] ED Provider Note Emergency Department Encounter [facility] ED Patient: Kathya Hooper : 1955 [...] made by myself in conjunction with the AYNET/Resident. I also supervised dotson portions of any [...] [employer] Fei Farooq MD 10/02/23 1129 Normal [facility] Laboratory - Chemistry and C hemistry - challengeon 10-02-2023 Troponin I.cardiac [Mass/Vol] ng/mL NINF - 0.034 ng/mL [facility] Laboratory - Coagulationon 0 10-02-2023 aPTT Coag (PPP) [Time] 29.6 s 20.0 - 30.5 s [facility] INR Coag (PPP) [Relative time] 1.1 {INR} 0.9 - 1.1 [facility] Comment on above: Recommended Anticoag ulant Therapy: [...] s 9.0 - 12.0 s [facility] No Panel Informationon 10-01 Heart Rate 103 bpm [facility] P [place] 48 degrees [facility] [place] Interval 172 ms [facility] QRS [place] -38 degrees [facility] QRSD Interval 159 ms [facility] QT Interval 405 ms [facility] QTC Interval 532 ms [facility] T Wave [place] 109 degrees [facility] Sinus tachycardia Left bundle branch block ST elevation secondary to IVCD Electronically Signed On 10-02-2023 12:40:15 EDT by Fei Farooq Fei Lopez MD - 10/02/2023 IMPRESSION: Sinus tachycardia Left bundle branch block ST elevation secondary to IVCD Electronically Signed On 10-02-2023 12:40:15 EDT by Fei Farooq [facility] Interpretation and review of laboratory results Normal [facility] PROTIME AND APTTon aPTT Coag (Bld) [Time] 29.6 s Normal 20.0-30.5 [facility] Comment on above: Performed By: #### L [id number] ####Associate Civil Engineer: CYNDI LILLY ([id number])[facility] ([facility])[address] [place] [address] INR Coag (PPP) [Relative time] 1.1 {INR} Normal 0.9-1.1 [facility] Comment on above: Result Comment: [...] prevent Myocardial Infarction Performed By: #### L [id number] ####Associate Civil Engineer: CYNDI LILLY ([id number])[facility] ([facility])[address] [place] [address] PT Coag (PPP) [Time] 11.6 s Normal 9.0-12.0 [facility] Comment on above: Performed By: #### L [id number] ####Associate Civil Engineer: CYNDI LILLY ([id number])[facility] ([address] TROPONIN, WITH SERIAL REFLEX on 10-02-2023 Troponin I.cardiac [Mass/Vol] ng/mL Normal <0.034 [facility] Comment on above: Result Comment: SHARON Stevens COMMENTS: Patients with high levels of Biotin oral intake (ie >5 mg/day) may have falsely decreased Troponin levels. Performed By: #### L AB17, [id number] ####Associate Civil Engineer: CYNDI LILLY ([id number])[facility] ([facility])[address] [place] [address] Troponin I.cardiac [Mass/Vol ]on 10-02-2023 Interpretation and review of laboratory results Normal [facility] Patients with high levels of Biotin oral intake (ie >5 mg/day) may have falsely decreased Troponin levels. [facility] XR Chest Single viewon 10-01 No acute cardiopulmonary disease. Report Dictated on Electronically Signed By: Maria Eugenia Ruiz MD Electronically Signed Date/Time: 10/02/2023 11:06 AM EDT [facility] Patient Name: KATHYA HOOPER : [...] spine and shoulders. No acute osseous findings. [facility] Maria Eugenia Ruiz MD - [...] Electronically Signed Date/Time: 10/02/2023 11:06 AM EDT [facility] Radiology Study observation (narrative) [facility] sarah Absolute lymphocyte countOrd ered By: Renard Burgos on 08-07-2023 Lymphocytes Auto (Unsp spec) [#/Vol] 2.23 10*3/uL 0.83-4.51 [facility] Automated lymphocyte count a s percentage of total leukocytesOrdered By: Renard Burgos on 08-07-2023 Lymphocytes/100 WBC Auto (Unsp spec) 23.9 % 19-41 [facility] Basophil percentageOrdered B y: Renard Burgos on 08-07-2023 Basophils/100 WBC (Bld) 0.4 % 0-1 [facility] Eosinophils/100 WBC (Bld) 0.4 % 0-5 [facility] Hemoglobin (Bld) [Mass/Vol] 13.9 g/dL 13.0-16.5 [facility] Monocytes/100 WBC (Bld) 8.0 % 0-10 W [facility] Neutrophils (Bld) [#/Vol] 6.2 10*3/uL 2.0-7.7 [facility] Neutrophils/100 WBC (Bld) 66.9 % 47-70 [facility] WBC (Bld) [#/Vol] 9.3 10*3/uL 4.4-11.0 [facility] Determination of erythrocyte mean corpuscular volume (MCV)Ordered By: Renard Burgos on 08-07-2023 MCV (RBC) [Entitic vol] 90.0 fL 80-94 [facility] Erythrocyte distribution wid th ratioOrdered By: Renard Burgos on 08-07-2023 Erythrocyte distribution width (RBC) [Ratio] 13.0 % 11.6-14.6 [facility] Erythrocyte distribution wid th standard deviationOrdered By: Renard Burgos on 08-07-2023 Erythrocyte distribution width (RBC) [Entitic vol] 42.5 fL 35.1-43.9 [facility] Hematocrit Auto (Bld) [Volum e fraction]Ordered By: Renard Burgos on 08-07-2023 Hematocrit (Bld) [Volume fraction] 42.5 % 40-54 [facility] Immature granulocytes/100 WB C Auto (Bld)Ordered By: Renard Burgos on 08-07-2023 Immature granulocytes/100 WBC (Bld) 0.400 % 0.0-0.9 [facility] Comment on above: IG% - Immature Granu locytes (promyelocytes, myelocytes and metamyelocytes) > 1% indicates that a LEFT SHIFT is Present. Laboratory - Hematology and Cell countsOrdered By: Renard Burgos on 08-07-2023 MCH (RBC) [Entitic mass] 29.4 pg 27.0-32.0 [facility] MCHC (RBC) [Mass/Vol] 32.7 g/dL 32-36 [facility] Nucleated RBC/100 WBC (Bld) [Ratio] 0 % 0-5 [facility] Platelet mean volume (Bld) [Entitic vol] 10.7 fL 6.2-12.0 [facility] Platelets (Bld) [#/Vol] 210 10*3/uL 150-450 [facility] RBC Auto (Bld) [#/Vol]Ordere d By: Renard Burgos on 08-07-2023 RBC (Bld) [#/Vol] 4.72 10*6/uL 4.6-6.2 [facility] Absolute lymphocyte countOrd ered By: Renard Burgos on 07-31-2023 Lymphocytes Auto (Unsp spec) [#/Vol] 2.04 10*3/uL 0.83-4.51 [facility] Automated lymphocyte count a s percentage of total leukocytesOrdered By: Renard Burgso on 07-31-2023 Lymphocytes/100 WBC Auto (Unsp spec) 24.2 % 19-41 [facility] Basophil percentageOrdered B y: Renard Burgos on 07-31-2023 Basophils/100 WBC (Bld) 0.6 % 0-1 [facility] Eosinophils/100 WBC (Bld) 0.6 % 0-5 [facility] Hemoglobin (Bld) [Mass/Vol] 13.9 g/dL 13.0-16.5 [facility] Monocytes/100 WBC (Bld) 8.5 % 0-10 W [facility] Neutrophils (Bld) [#/Vol] 5.5 10*3/uL 2.0-7.7 [facility] Neutrophils/100 WBC (Bld) 65.7 % 47-70 [facility] WBC (Bld) [#/Vol] 8.4 10*3/uL 4.4-11.0 [facility] Determination of erythrocyte mean corpuscular volume (MCV)Ordered By: Renard Burgos on 07-31-2023 MCV (RBC) [Entitic vol] 89.7 fL 80-94 [facility] Erythrocyte distribution wid th ratioOrdered By: Renard Burgos on 07-31-2023 Erythrocyte distribution width (RBC) [Ratio] 12.8 % 11.6-14.6 [facility] Erythrocyte distribution wid th standard deviationOrdered By: Renard Burgos on 07-31-2023 Erythrocyte distribution width (RBC) [Entitic vol] 42.2 fL 35.1-43.9 [facility] Hematocrit Auto (Bld) [Volum e fraction]Ordered By: Renard Burgos on 07-31-2023 Hematocrit (Bld) [Volume fraction] 41.7 % 40-54 [facility] Immature granulocytes/100 WB C Auto (Bld)Ordered By: Renard Burgos on 07-31-2023 Immature granulocytes/100 WBC (Bld) 0.400 % 0.0-0.9 [facility] Comment on above: IG% - Immature Granu locytes (promyelocytes, myelocytes and metamyelocytes) > 1% indicates that a LEFT SHIFT is Present. Laboratory - Hematology and Cell countsOrdered By: Renard Burgos on 07-31-2023 MCH (RBC) [Entitic mass] 29.9 pg 27.0-32.0 [facility] MCHC (RBC) [Mass/Vol] 33.3 g/dL 32-36 [facility] Nucleated RBC/100 WBC (Bld) [Ratio] 0 % 0-5 [facility] Platelet mean volume (Bld) [Entitic vol] 10.6 fL 6.2-12.0 [facility] Platelets (Bld) [#/Vol] 201 10*3/uL 150-450 [facility] RBC Auto (Bld) [#/Vol]Ordere d By: Renard Burgos on 07-31-2023 RBC (Bld) [#/Vol] 4.65 10*6/uL 4.6-6.2 [facility] Absolute lymphocyte countOrd ered By: Renard Burgos on 07-24-2023 Lymphocytes Auto (Unsp spec) [#/Vol] 2.00 10*3/uL 0.83-4.51 [facility] Automated lymphocyte count a s percentage of total leukocytesOrdered By: Renard Burgos on 07-24-2023 Lymphocytes/100 WBC Auto (Unsp spec) 26.2 % 19-41 [facility] Basophil percentageOrdered B y: Renard Burgos on 07-24-2023 Basophils/100 WBC (Bld) 0.7 % 0-1 W [facility] Eosinophils/100 WBC (Bld) 0.7 % 0-5 [facility] Hemoglobin (Bld) [Mass/Vol] 14.2 g/dL 13.0-16.5 [facility] Monocytes/100 WBC (Bld) 6.4 % 0-10 W [facility] Neutrophils (Bld) [#/Vol] 5.0 10*3/uL 2.0-7.7 [facility] Neutrophils/100 WBC (Bld) 65.6 % 47-70 [facility] WBC (Bld) [#/Vol] 7.6 10*3/uL 4.4-11.0 [facility] Determination of erythrocyte mean corpuscular volume (MCV)Ordered By: Renard Burgos on 07-24-2023 MCV (RBC) [Entitic vol] 89.8 fL 80-94 [facility] Erythrocyte distribution wid th ratioOrdered By: Renard Burgos on 07-24-2023 Erythrocyte distribution width (RBC) [Ratio] 12.8 % 11.6-14.6 [facility] Erythrocyte distribution wid th standard deviationOrdered By: Renard Burgos on 07-24-2023 Erythrocyte distribution width (RBC) [Entitic vol] 42.0 fL 35.1-43.9 [facility] Hematocrit Auto (Bld) [Volum e fraction]Ordered By: Renard Burgos on 07-24-2023 Hematocrit (Bld) [Volume fraction] 43.3 % 40-54 [facility] Immature granulocytes/100 WB C Auto (Bld)Ordered By: Renard Burgos on 07-24-2023 Immature granulocytes/100 WBC (Bld) 0.400 % 0.0-0.9 [facility] Comment on above: IG% - Immature Granu locytes (promyelocytes, myelocytes and metamyelocytes) > 1% indicates that a LEFT SHIFT is Present. Laboratory - Hematology and Cell countsOrdered By: Renard Burgos on 07-24-2023 MCH (RBC) [Entitic mass] 29.5 pg 27.0-32.0 [facility] MCHC (RBC) [Mass/Vol] 32.8 g/dL 32-36 [facility] Nucleated RBC/100 WBC (Bld) [Ratio] 0 % 0-5 [facility] Platelet mean volume (Bld) [Entitic vol] 11.0 fL 6.2-12.0 [facility] Platelets (Bld) [#/Vol] 215 10*3/uL 150-450 [facility] RBC Auto (Bld) [#/Vol]Ordere d By: Renard Burgos on 07-24-2023 RBC (Bld) [#/Vol] 4.82 10*6/uL 4.6-6.2 [facility] Absolute lymphocyte countOrd ered By: Renard Burgos on 07-17-2023 Lymphocytes Auto (Unsp spec) [#/Vol] 2.22 10*3/uL 0.83-4.51 [facility] Automated lymphocyte count a s percentage of total leukocytesOrdered By: Renard Burgos on 07-17-2023 Lymphocytes/100 WBC Auto (Unsp spec) 25.4 % 19-41 [facility] Basophil percentageOrdered B y: Renard Burgos on 07-17-2023 Basophils/100 WBC (Bld) 0.5 % 0-1 [facility] Cholesterol [Mass/Vol] 126 mg/dL <200 [facility] Comment on above: <200 mg/dL Desirable 200-240 mg/dL Borderline >240 mg/dL High Risk Eosinophils/100 WBC (Bld) 0.6 % 0-5 [facility] Hemoglobin (Bld) [Mass/Vol] 14.0 g/dL 13.0-16.5 [facility] Monocytes/100 WBC (Bld) 6.6 % 0-10 [facility] Neutrophils (Bld) [#/Vol] 5.8 10*3/uL 2.0-7.7 [facility] Neutrophils/100 WBC (Bld) 66.4 % 47-70 [facility] Triglyceride [Mass/Vol] 176 mg/dL <199 [facility] Comment on above: The drugs N-Acetylcy steine and Metamizole may falsely depress this assay.Serum Triglycerides Reference Interval Normal <150 mg/dL Borderline high 150 - 199 mg/dL High 200 - 499 mg/dL Very High > or = 500 mg/dL WBC (Bld) [#/Vol] 8.7 10*3/uL 4.4-11.0 [facility] Determination of erythrocyte mean corpuscular volume (MCV)Ordered By: Renard Burgos on 07-17-2023 MCV (RBC) [Entitic vol] 90.5 fL 80-94 [facility] Erythrocyte distribution wid th ratioOrdered By: Renard Burgos on 07-17-2023 Erythrocyte distribution width (RBC) [Ratio] 12.4 % 11.6-14.6 [facility] Erythrocyte distribution wid th standard deviationOrdered By: Renard Burgos on 07-17-2023 Erythrocyte distribution width (RBC) [Entitic vol] 41.1 fL 35.1-43.9 [facility] Hematocrit Auto (Bld) [Volum e fraction]Ordered By: Renard Burgos on 07-17-2023 Hematocrit (Bld) [Volume fraction] 42.8 % 40-54 [facility] Immature granulocytes/100 WB C Auto (Bld)Ordered By: Renard Burgos on 07-17-2023 Immature granulocytes/100 WBC (Bld) 0.500 % 0.0-0.9 [facility] Comment on above: IG% - Immature Granu locytes (promyelocytes, myelocytes and metamyelocytes) > 1% indicates that a LEFT SHIFT is Present. Laboratory - Chemistry and C hemistry - challengeOrdered By: Renard Burgos on 07-17-2023 Cholesterol in HDL [Mass/Vol] 28 mg/dL >40 [facility] Comment on above: The drugs N-Acetylcy steine and Metamizole may falsely depress this assay. Reference Range HDL <40 mg/dL Low HDL Cholesterol HDL >or= 60 mg/dL High HDL Cholesterol Cholesterol in LDL [Mass/Vol] 63 mg/dL 0-130 [facility] Laboratory - Hematology and Cell countsOrdered By: Renard Burgos on 07-17-2023 MCH (RBC) [Entitic mass] 29.6 pg 27.0-32.0 [facility] MCHC (RBC) [Mass/Vol] 32.7 g/dL 32-36 [facility] Nucleated RBC/100 WBC (Bld) [Ratio] 0 % 0-5 [facility] Platelet mean volume (Bld) [Entitic vol] 10.9 fL 6.2-12.0 [facility] Platelets (Bld) [#/Vol] 193 10*3/uL 150-450 [facility] No Panel InformationOrdered By: Renard Burgos on 07-17-2023 Vitamin D 25-Hydroxy 33.1 ng/mL [facility] Comment on above: Vitamin D 25(OH) Sta tus Range Deficiency <20 ng/mL (50nmol/L) Insufficiency 20 - 30 ng/mL (50 - 75 nmol/L) Sufficiency 30 - 100 ng/mL (75 - 250 nmol/L) Toxicity >100 ng/mL (>250 nmol/L) VLDL Cholesterol 35 mg/dL 5-40 [facility] RBC Auto (Bld) [#/Vol]Ordere d By: Renard Burgos on 07-17-2023 RBC (Bld) [#/Vol] 4.73 10*6/uL 4.6-6.2 [facility] Absolute lymphocyte countOrd ered By: Renard Burgos on 07-10-2023 Lymphocytes Auto (Unsp spec) [#/Vol] 2.14 10*3/uL 0.83-4.51 [facility] Automated lymphocyte count a s percentage of total leukocytesOrdered By: Renard Burgos on 07-10-2023 Lymphocytes/100 WBC Auto (Unsp spec) 24.7 % 19-41 [facility] Basophil percentageOrdered B y: Renard Burgos on 07-10-2023 Basophils/100 WBC (Bld) 0.3 % 0-1 [facility] Eosinophils/100 WBC (Bld) 0.3 % 0-5 [facility] Hemoglobin (Bld) [Mass/Vol] 13.8 g/dL 13.0-16.5 [facility] Monocytes/100 WBC (Bld) 7.8 % 0-10 [facility] Neutrophils (Bld) [#/Vol] 5.8 10*3/uL 2.0-7.7 [facility] Neutrophils/100 WBC (Bld) 66.4 % 47-70 [facility] WBC (Bld) [#/Vol] 8.7 10*3/uL 4.4-11.0 [facility] Determination of erythrocyte mean corpuscular volume (MCV)Ordered By: Renard Burgos on 07-10-2023 MCV (RBC) [Entitic vol] 88.9 fL 80-94 [facility] Erythrocyte distribution wid th ratioOrdered By: Renard Burgos on 07-10-2023 Erythrocyte distribution width (RBC) [Ratio] 12.6 % 11.6-14.6 [facility] Erythrocyte distribution wid th standard deviationOrdered By: Renard Burgos on 07-10-2023 Erythrocyte distribution width (RBC) [Entitic vol] 40.6 fL 35.1-43.9 [facility] Hematocrit Auto (Bld) [Volum e fraction]Ordered By: Renard Burgos on 07-10-2023 Hematocrit (Bld) [Volume fraction] 41.0 % 40-54 [facility] Immature granulocytes/100 WB C Auto (Bld)Ordered By: Renard Burgos on 07-10-2023 Immature granulocytes/100 WBC (Bld) 0.500 % 0.0-0.9 [facility] Comment on above: IG% - Immature Granu locytes (promyelocytes, myelocytes and metamyelocytes) > 1% indicates that a LEFT SHIFT is Present. Laboratory - Hematology and Cell countsOrdered By: Renard Burgos on 07-10-2023 MCH (RBC) [Entitic mass] 29.9 pg 27.0-32.0 [facility] MCHC (RBC) [Mass/Vol] 33.7 g/dL 32-36 [facility] Nucleated RBC/100 WBC (Bld) [Ratio] 0 % 0-5 [facility] Platelet mean volume (Bld) [Entitic vol] 11.0 fL 6.2-12.0 [facility] Platelets (Bld) [#/Vol] 215 10*3/uL 150-450 [facility] RBC Auto (Bld) [#/Vol]Ordere d By: Renard Burgos on 07-10-2023 RBC (Bld) [#/Vol] 4.61 10*6/uL 4.6-6.2 [facility] Absolute lymphocyte countOrd ered By: Renard Burgos on 07-03-2023 Lymphocytes Auto (Unsp spec) [#/Vol] 1.84 10*3/uL 0.83-4.51 [facility] Automated lymphocyte count a s percentage of total leukocytesOrdered By: Renard Burgos on 07-03-2023 Lymphocytes/100 WBC Auto (Unsp spec) 16.9 % 19-41 [facility] Basophil percentageOrdered B y: Renard Burgos on 07-03-2023 Basophil percentage 3.17 ng/mL 0.0-4.0 [facility] Comment on above: This test was perfor med using the TPSA assay method for [employer] chemistry system. Values obtained with differentassay methods cannot be used interchangably.When changing PSA assays in the course of monitoring apatient, additional sequential testing should be carriedout to confirm baseline values. Basophils/100 WBC (Bld) 0.5 % 0-1 [facility] Eosinophils/100 WBC (Bld) 0.4 % 0-5 [facility] Hemoglobin (Bld) [Mass/Vol] 13.2 g/dL 13.0-16.5 [facility] Monocytes/100 WBC (Bld) 7.4 % 0-10 [facility] Neutrophils (Bld) [#/Vol] 8.1 10*3/uL 2.0-7.7 [facility] Neutrophils/100 WBC (Bld) 74.4 % 47-70 [facility] WBC (Bld) [#/Vol] 10.9 10*3/uL 4.4-11.0 [facility] Determination of erythrocyte mean corpuscular volume (MCV)Ordered By: Renard Burgos on 07-03-2023 MCV (RBC) [Entitic vol] 89.8 fL 80-94 [facility] Erythrocyte distribution wid th ratioOrdered By: Renard Burgos on 07-03-2023 Erythrocyte distribution width (RBC) [Ratio] 12.7 % 11.6-14.6 [facility] Erythrocyte distribution wid th standard deviationOrdered By: Renard Burgos on 07-03-2023 Erythrocyte distribution width (RBC) [Entitic vol] 41.9 fL 35.1-43.9 [facility] Hematocrit Auto (Bld) [Volum e fraction]Ordered By: Renard Burgos on 07-03-2023 Hematocrit (Bld) [Volume fraction] 40.3 % 40-54 [facility] Immature granulocytes/100 WB C Auto (Bld)Ordered By: Renard Burgos on 07-03-2023 Immature granulocytes/100 WBC (Bld) 0.400 % 0.0-0.9 [facility] Comment on above: IG% - Immature Granu locytes (promyelocytes, myelocytes and metamyelocytes) > 1% indicates that a LEFT SHIFT is Present. Laboratory - Hematology and Cell countsOrdered By: Renard Burgos on 07-03-2023 MCH (RBC) [Entitic mass] 29.4 pg 27.0-32.0 [facility] MCHC (RBC) [Mass/Vol] 32.8 g/dL 32-36 [facility] Nucleated RBC/100 WBC (Bld) [Ratio] 0 % 0-5 [facility] Platelet mean volume (Bld) [Entitic vol] 11.2 fL 6.2-12.0 [facility] Platelets (Bld) [#/Vol] 191 10*3/uL 150-450 [facility] RBC Auto (Bld) [#/Vol]Ordere d By: Renard Burgos on 07-03-2023 RBC (Bld) [#/Vol] 4.49 10*6/uL 4.6-6.2 [facility] Absolute lymphocyte countOrd ered By: Renard Burgos on 06-26-2023 Lymphocytes Auto (Unsp spec) [#/Vol] 2.23 10*3/uL 0.83-4.51 [facility] Automated lymphocyte count a s percentage of total leukocytesOrdered By: Renard Burgos on 06-26-2023 Lymphocytes/100 WBC Auto (Unsp spec) 27.3 % 19-41 [facility] Basophil percentageOrdered B y: Renard Burgos on 06-26-2023 Basophils/100 WBC (Bld) 0.5 % 0-1 [facility] Eosinophils/100 WBC (Bld) 0.7 % 0-5 [facility] Hemoglobin (Bld) [Mass/Vol] 13.7 g/dL 13.0-16.5 [facility] Monocytes/100 WBC (Bld) 9.5 % 0-10 [facility] Neutrophils (Bld) [#/Vol] 5.1 10*3/uL 2.0-7.7 [facility] Neutrophils/100 WBC (Bld) 61.8 % 47-70 [facility] WBC (Bld) [#/Vol] 8.2 10*3/uL 4.4-11.0 [facility] Determination of erythrocyte mean corpuscular volume (MCV)Ordered By: Renard Burgos on 06-26-2023 MCV (RBC) [Entitic vol] 92.2 fL 80-94 [facility] Erythrocyte distribution wid th ratioOrdered By: Renard Burgos on 06-26-2023 Erythrocyte distribution width (RBC) [Ratio] 12.7 % 11.6-14.6 [facility] Erythrocyte distribution wid th standard deviationOrdered By: Renard Burgos on 06-26-2023 Erythrocyte distribution width (RBC) [Entitic vol] 42.8 fL 35.1-43.9 [facility] Hematocrit Auto (Bld) [Volum e fraction]Ordered By: Renard Burgos on 06-26-2023 Hematocrit (Bld) [Volume fraction] 42.6 % 40-54 [facility] Immature granulocytes/100 WB C Auto (Bld)Ordered By: Renard Burgos on 06-26-2023 Immature granulocytes/100 WBC (Bld) 0.200 % 0.0-0.9 [facility] Comment on above: IG% - Immature Granu locytes (promyelocytes, myelocytes and metamyelocytes) > 1% indicates that a LEFT SHIFT is Present. Laboratory - Hematology and Cell countsOrdered By: Renard Burgos on 06-26-2023 MCH (RBC) [Entitic mass] 29.7 pg 27.0-32.0 [facility] MCHC (RBC) [Mass/Vol] 32.2 g/dL 32-36 [facility] Nucleated RBC/100 WBC (Bld) [Ratio] 0 % 0-5 [facility] Platelet mean volume (Bld) [Entitic vol] 11.0 fL 6.2-12.0 [facility] Platelets (Bld) [#/Vol] 182 10*3/uL 150-450 [facility] RBC Auto (Bld) [#/Vol]Ordere d By: Renard Burgos on 06-26-2023 RBC (Bld) [#/Vol] 4.62 10*6/uL 4.6-6.2 [facility] Absolute lymphocyte countOrd ered By: Renard Burgos on 06-19-2023 Lymphocytes Auto (Unsp spec) [#/Vol] 2.13 10*3/uL 0.83-4.51 [facility] Automated lymphocyte count a s percentage of total leukocytesOrdered By: Renard Burgos on 06-19-2023 Lymphocytes/100 WBC Auto (Unsp spec) 28.8 % 19-41 [facility] Basophil percentageOrdered B y: Renard Burgos on 06-19-2023 Basophils/100 WBC (Bld) 0.5 % 0-1 [facility] Eosinophils/100 WBC (Bld) 0.5 % 0-5 [facility] Hemoglobin (Bld) [Mass/Vol] 13.7 g/dL 13.0-16.5 [facility] Monocytes/100 WBC (Bld) 8.1 % 0-10 [facility] Neutrophils (Bld) [#/Vol] 4.6 10*3/uL 2.0-7.7 [facility] Neutrophils/100 WBC (Bld) 61.6 % 47-70 [facility] WBC (Bld) [#/Vol] 7.4 10*3/uL 4.4-11.0 [facility] Determination of erythrocyte mean corpuscular volume (MCV)Ordered By: Renard Burgos on 06-19-2023 MCV (RBC) [Entitic vol] 91.7 fL 80-94 [facility] Erythrocyte distribution wid th ratioOrdered By: Renard Burgos on 06-19-2023 Erythrocyte distribution width (RBC) [Ratio] 12.7 % 11.6-14.6 [facility] Erythrocyte distribution wid th standard deviationOrdered By: Renard Burgos on 06-19-2023 Erythrocyte distribution width (RBC) [Entitic vol] 42.8 fL 35.1-43.9 [facility] Hematocrit Auto (Bld) [Volum e fraction]Ordered By: Renard Burgos on 06-19-2023 Hematocrit (Bld) [Volume fraction] 43.1 % 40-54 [facility] Immature granulocytes/100 WB C Auto (Bld)Ordered By: Renard Burgos on 06-19-2023 Immature granulocytes/100 WBC (Bld) 0.500 % 0.0-0.9 [facility] Comment on above: IG% - Immature Granu locytes (promyelocytes, myelocytes and metamyelocytes) > 1% indicates that a LEFT SHIFT is Present. Laboratory - Hematology and Cell countsOrdered By: Renard Burgos on 06-19-2023 MCH (RBC) [Entitic mass] 29.1 pg 27.0-32.0 [facility] MCHC (RBC) [Mass/Vol] 31.8 g/dL 32-36 [facility] Nucleated RBC/100 WBC (Bld) [Ratio] 0 % 0-5 [facility] Platelet mean volume (Bld) [Entitic vol] 11.1 fL 6.2-12.0 [facility] Platelets (Bld) [#/Vol] 201 10*3/uL 150-450 [facility] RBC Auto (Bld) [#/Vol]Ordere d By: Renard Burgos on 06-19-2023 RBC (Bld) [#/Vol] 4.70 10*6/uL 4.6-6.2 [facility] Absolute lymphocyte countOrd ered By: Renard Burgos on 06-12-2023 Lymphocytes Auto (Unsp spec) [#/Vol] 2.17 10*3/uL 0.83-4.51 [facility] Automated lymphocyte count a s percentage of total leukocytesOrdered By: Renard Burgos on 06-12-2023 Lymphocytes/100 WBC Auto (Unsp spec) 26.7 % 19-41 [facility] Basophil percentageOrdered B y: Renard Burgos on 06-12-2023 Basophils/100 WBC (Bld) 0.4 % 0-1 [facility] Eosinophils/100 WBC (Bld) 0.5 % 0-5 [facility] Hemoglobin (Bld) [Mass/Vol] 13.5 g/dL 13.0-16.5 [facility] Monocytes/100 WBC (Bld) 9.0 % 0-10 [facility] Neutrophils (Bld) [#/Vol] 5.1 10*3/uL 2.0-7.7 [facility] Neutrophils/100 WBC (Bld) 63.0 % 47-70 [facility] WBC (Bld) [#/Vol] 8.1 10*3/uL 4.4-11.0 [facility] Determination of erythrocyte mean corpuscular volume (MCV)Ordered By: Renard Burgos on 06-12-2023 MCV (RBC) [Entitic vol] 91.3 fL 80-94 [facility] Erythrocyte distribution wid th ratioOrdered By: Renard Burgos on 06-12-2023 Erythrocyte distribution width (RBC) [Ratio] 12.6 % 11.6-14.6 [facility] Erythrocyte distribution wid th standard deviationOrdered By: Renard Burgos on 06-12-2023 Erythrocyte distribution width (RBC) [Entitic vol] 41.5 fL 35.1-43.9 [facility] Hematocrit Auto (Bld) [Volum e fraction]Ordered By: Renard Burgos on 06-12-2023 Hematocrit (Bld) [Volume fraction] 40.8 % 40-54 [facility] Immature granulocytes/100 WB C Auto (Bld)Ordered By: Renard Burgos on 06-12-2023 Immature granulocytes/100 WBC (Bld) 0.400 % 0.0-0.9 [facility] Comment on above: IG% - Immature Granu locytes (promyelocytes, myelocytes and metamyelocytes) > 1% indicates that a LEFT SHIFT is Present. Laboratory - Hematology and Cell countsOrdered By: Renard Burgos on 06-12-2023 MCH (RBC) [Entitic mass] 30.2 pg 27.0-32.0 [facility] MCHC (RBC) [Mass/Vol] 33.1 g/dL 32-36 [facility] Nucleated RBC/100 WBC (Bld) [Ratio] 0 % 0-5 [facility] Platelet mean volume (Bld) [Entitic vol] 11.0 fL 6.2-12.0 [facility] Platelets (Bld) [#/Vol] 195 10*3/uL 150-450 [facility] RBC Auto (Bld) [#/Vol]Ordere d By: Renard Burgos on 06-12-2023 RBC (Bld) [#/Vol] 4.47 10*6/uL 4.6-6.2 [facility] Absolute lymphocyte countOrd ered By: Renard Burgos on 06-05-2023 Lymphocytes Auto (Unsp spec) [#/Vol] 2.05 10*3/uL 0.83-4.51 [facility] Automated lymphocyte count a s percentage of total leukocytesOrdered By: Renard Burgos on 06-05-2023 Lymphocytes/100 WBC Auto (Unsp spec) 24.1 % 19-41 [facility] Basophil percentageOrdered B y: Renard Burgos on 06-05-2023 Basophils/100 WBC (Bld) 0.5 % 0-1 [facility] Eosinophils/100 WBC (Bld) 0.5 % 0-5 [facility] Hemoglobin (Bld) [Mass/Vol] 13.6 g/dL 13.0-16.5 [facility] Monocytes/100 WBC (Bld) 7.6 % 0-10 [facility] Neutrophils (Bld) [#/Vol] 5.7 10*3/uL 2.0-7.7 [facility] Neutrophils/100 WBC (Bld) 66.9 % 47-70 [facility] WBC (Bld) [#/Vol] 8.5 10*3/uL 4.4-11.0 [facility] Determination of erythrocyte mean corpuscular volume (MCV)Ordered By: Renard Burgos on 06-05-2023 MCV (RBC) [Entitic vol] 89.7 fL 80-94 [facility] Erythrocyte distribution wid th ratioOrdered By: Renard Burgos on 06-05-2023 Erythrocyte distribution width (RBC) [Ratio] 12.6 % 11.6-14.6 [facility] Erythrocyte distribution wid th standard deviationOrdered By: Renard Burgos on 06-05-2023 Erythrocyte distribution width (RBC) [Entitic vol] 41.1 fL 35.1-43.9 [facility] Hematocrit Auto (Bld) [Volum e fraction]Ordered By: Renard Burgos on 06-05-2023 Hematocrit (Bld) [Volume fraction] 41.0 % 40-54 [facility] Immature granulocytes/100 WB C Auto (Bld)Ordered By: Renard Burgos on 06-05-2023 Immature granulocytes/100 WBC (Bld) 0.400 % 0.0-0.9 [facility] Comment on above: IG% - Immature Granu locytes (promyelocytes, myelocytes and metamyelocytes) > 1% indicates that a LEFT SHIFT is Present. Laboratory - Hematology and Cell countsOrdered By: Renard Burgos on 06-05-2023 MCH (RBC) [Entitic mass] 29.8 pg 27.0-32.0 [facility] MCHC (RBC) [Mass/Vol] 33.2 g/dL 32-36 [facility] Nucleated RBC/100 WBC (Bld) [Ratio] 0 % 0-5 [facility] Platelets (Bld) [#/Vol] 193 10*3/uL 150-450 [facility] Platelet mean volume Adam-Ec ker (Bld) [Entitic vol]Ordered By: Renard Burgos on 06-05-2023 Platelet mean volume (Bld) [Entitic vol] 10.8 fL 6.2-12.0 [facility] RBC Auto (Bld) [#/Vol]Ordere d By: Renard Burgos on 06-05-2023 RBC (Bld) [#/Vol] 4.57 10*6/uL 4.6-6.2 [facility] Absolute lymphocyte countOrd ered By: Renard Burgos on 05-29-2023 Lymphocytes Auto (Unsp spec) [#/Vol] 2.32 10*3/uL 0.83-4.51 [facility] Automated lymphocyte count a s percentage of total leukocytesOrdered By: Renard Burgos on 05-29-2023 Lymphocytes/100 WBC Auto (Unsp spec) 26.7 % 19-41 [facility] Basophil percentageOrdered B y: Renard Burgos on 05-29-2023 Basophils/100 WBC (Bld) 0.6 % 0-1 [facility] Eosinophils/100 WBC (Bld) 0.5 % 0-5 [facility] Hemoglobin (Bld) [Mass/Vol] 14.2 g/dL 13.0-16.5 [facility] Monocytes/100 WBC (Bld) 6.8 % 0-10 [facility] Neutrophils (Bld) [#/Vol] 5.7 10*3/uL 2.0-7.7 [facility] Neutrophils/100 WBC (Bld) 65.2 % 47-70 [facility] WBC (Bld) [#/Vol] 8.7 10*3/uL 4.4-11.0 [facility] Determination of erythrocyte mean corpuscular volume (MCV)Ordered By: Renard Burgos on 05-29-2023 MCV (RBC) [Entitic vol] 94.0 fL 80-94 [facility] Erythrocyte distribution wid th ratioOrdered By: Renard Burgos on 05-29-2023 Erythrocyte distribution width (RBC) [Ratio] 12.6 % 11.6-14.6 [facility] Erythrocyte distribution wid th standard deviationOrdered By: Renard Burgos on 05-29-2023 Erythrocyte distribution width (RBC) [Entitic vol] 43.0 fL 35.1-43.9 [facility] Hematocrit Auto (Bld) [Volum e fraction]Ordered By: Renard Burgos on 05-29-2023 Hematocrit (Bld) [Volume fraction] 45.4 % 40-54 [facility] Immature granulocytes/100 WB C Auto (Bld)Ordered By: Renard Burgos on 05-29-2023 Immature granulocytes/100 WBC (Bld) 0.200 % 0.0-0.9 [facility] Comment on above: IG% - Immature Granu locytes (promyelocytes, myelocytes and metamyelocytes) > 1% indicates that a LEFT SHIFT is Present. Laboratory - Hematology and Cell countsOrdered By: Renard Burgos on 05-29-2023 MCH (RBC) [Entitic mass] 29.4 pg 27.0-32.0 [facility] MCHC (RBC) [Mass/Vol] 31.3 g/dL 32-36 [facility] Nucleated RBC/100 WBC (Bld) [Ratio] 0 % 0-5 [facility] Platelets (Bld) [#/Vol] 116 10*3/uL 150-450 [facility] Platelet mean volume Adam-Ec ker (Bld) [Entitic vol]Ordered By: Renard Burgos on 05-29-2023 Platelet mean volume (Bld) [Entitic vol] 11.1 fL 6.2-12.0 [facility] RBC Auto (Bld) [#/Vol]Ordere d By: Renard Burgos on 05-29-2023 RBC (Bld) [#/Vol] 4.83 10*6/uL 4.6-6.2 [facility] Absolute lymphocyte countOrd ered By: Renard Burgos on 05-22-2023 Lymphocytes Auto (Unsp spec) [#/Vol] 2.40 10*3/uL 0.83-4.51 [facility] Automated lymphocyte count a s percentage of total leukocytesOrdered By: Renard Burgos on 05-22-2023 Lymphocytes/100 WBC Auto (Unsp spec) 25.6 % 19-41 [facility] Basophil percentageOrdered B y: Renard Burgos on 05-22-2023 Basophils/100 WBC (Bld) 0.4 % 0-1 [facility] Eosinophils/100 WBC (Bld) 0.4 % 0-5 [facility] Hemoglobin (Bld) [Mass/Vol] 13.7 g/dL 13.0-16.5 [facility] Monocytes/100 WBC (Bld) 9.1 % 0-10 [facility] Neutrophils (Bld) [#/Vol] 6.0 10*3/uL 2.0-7.7 [facility] Neutrophils/100 WBC (Bld) 63.9 % 47-70 [facility] WBC (Bld) [#/Vol] 9.4 10*3/uL 4.4-11.0 [facility] Determination of erythrocyte mean corpuscular volume (MCV)Ordered By: Renard Burgos on 05-22-2023 MCV (RBC) [Entitic vol] 91.8 fL 80-94 [facility] Erythrocyte distribution wid th ratioOrdered By: Renard Burgos on 05-22-2023 Erythrocyte distribution width (RBC) [Ratio] 12.8 % 11.6-14.6 [facility] Erythrocyte distribution wid th standard deviationOrdered By: Renard Burgos on 05-22-2023 Erythrocyte distribution width (RBC) [Entitic vol] 43.4 fL 35.1-43.9 [facility] Hematocrit Auto (Bld) [Volum e fraction]Ordered By: Renard Burgos on 05-22-2023 Hematocrit (Bld) [Volume fraction] 41.5 % 40-54 [facility] Immature granulocytes/100 WB C Auto (Bld)Ordered By: Renard Burgos on 05-22-2023 Immature granulocytes/100 WBC (Bld) 0.600 % 0.0-0.9 [facility] Comment on above: IG% - Immature Granu locytes (promyelocytes, myelocytes and metamyelocytes) > 1% indicates that a LEFT SHIFT is Present. Laboratory - Hematology and Cell countsOrdered By: Renard Burgos on 05-22-2023 MCH (RBC) [Entitic mass] 30.3 pg 27.0-32.0 [facility] MCHC (RBC) [Mass/Vol] 33.0 g/dL 32-36 [facility] Nucleated RBC/100 WBC (Bld) [Ratio] 0 % 0-5 [facility] Platelets (Bld) [#/Vol] 192 10*3/uL 150-450 [facility] Platelet mean volume Adam-Ec ker (Bld) [Entitic vol]Ordered By: Renard Burgos on 05-22-2023 Platelet mean volume (Bld) [Entitic vol] 11.3 fL 6.2-12.0 [facility] RBC Auto (Bld) [#/Vol]Ordere d By: Renard Burgos on 05-22-2023 RBC (Bld) [#/Vol] 4.52 10*6/uL 4.6-6.2 [facility] Absolute lymphocyte countOrd ered By: Renard Burgos on 05-15-2023 Lymphocytes Auto (Unsp spec) [#/Vol] 2.11 10*3/uL 0.83-4.51 [facility] Basophil percentageOrdered B y: Renard Burgos on 05-15-2023 Basophils/100 WBC (Bld) 0.6 % 0-1 [facility] Eosinophils/100 WBC (Bld) 0.8 % 0-5 [facility] Neutrophils (Bld) [#/Vol] 4.9 10*3/uL 2.0-7.7 [facility] Neutrophils/100 WBC (Bld) 62.4 % 47-70 [facility] WBC (Bld) [#/Vol] 7.9 10*3/uL 4.4-11.0 [facility] Blood erythrocytes count (nu mber/volume)Ordered By: Renard Burgos on 05-15-2023 RBC (Bld) [#/Vol] 4.61 10*6/uL 4.6-6.2 [facility] Blood hemoglobin measurement (mass/volume)Ordered By: Renard Burgos on 05-15-2023 Hemoglobin (Bld) [Mass/Vol] 13.9 g/dL 13.0-16.5 [facility] Blood lymphocytes/100 leukoc ytesOrdered By: Renard Burgos on 05-15-2023 Lymphocytes/100 WBC (Bld) 26.7 % 19-41 [facility] Blood monocytes/100 leukocyt esOrdered By: Renard Burgos on 05-15-2023 Monocytes/100 WBC (Bld) 9.1 % 0-10 [facility] Blood platelet mean volumeOr dered By: Renard Burgos on 05-15-2023 Platelet mean volume (Bld) [Entitic vol] 10.7 fL 6.2-12.0 [facility] Determination of erythrocyte mean corpuscular volume (MCV)Ordered By: Renard Burgos on 05-15-2023 MCV (RBC) [Entitic vol] 90.5 fL 80-94 [facility] Hematocrit Auto (Bld) [Volum e fraction]Ordered By: Renard Burgos on 05-15-2023 Hematocrit (Bld) [Volume fraction] 41.7 % 40-54 [facility] Laboratory - Hematology and Cell countsOrdered By: Renard Burgos on 05-15-2023 Erythrocyte distribution width (RBC) [Entitic vol] 42.4 fL 35.1-43.9 [facility] Erythrocyte distribution width (RBC) [Ratio] 12.9 % 11.6-14.6 [facility] Immature granulocytes/100 WBC (Bld) 0.400 % 0.0-0.9 [facility] Comment on above: IG% - Immature Granu locytes (promyelocytes, myelocytes and metamyelocytes) > 1% indicates that a LEFT SHIFT is Present. MCH (RBC) [Entitic mass] 30.2 pg 27.0-32.0 [facility] Nucleated RBC/100 WBC (Bld) [Ratio] 0 % 0-5 [facility] MCHC Auto (RBC) [Mass/Vol]Or dered By: Renard Burgos on 05-15-2023 MCHC (RBC) [Mass/Vol] 33.3 g/dL 32-36 [facility] Platelets bldOrdered By: Lyubov Burgos on 05-15-2023 Platelets (Bld) [#/Vol] 202 10*3/uL 150-450 [facility] Absolute lymphocyte countOrd ered By: Renard Burgos on 05-08-2023 Lymphocytes Auto (Unsp spec) [#/Vol] 2.06 10*3/uL 0.83-4.51 [facility] Basophil percentageOrdered B y: Renard Burgos on 05-08-2023 Basophils/100 WBC (Bld) 0.4 % 0-1 [facility] Eosinophils/100 WBC (Bld) 0.5 % 0-5 [facility] Neutrophils (Bld) [#/Vol] 5.0 10*3/uL 2.0-7.7 [facility] Neutrophils/100 WBC (Bld) 65.7 % 47-70 [facility] WBC (Bld) [#/Vol] 7.5 10*3/uL 4.4-11.0 [facility] Blood erythrocytes count (nu mber/volume)Ordered By: Renard Burgos on 05-08-2023 RBC (Bld) [#/Vol] 4.62 10*6/uL 4.6-6.2 [facility] Blood hemoglobin measurement (mass/volume)Ordered By: Renard Burgos on 05-08-2023 Hemoglobin (Bld) [Mass/Vol] 13.6 g/dL 13.0-16.5 [facility] Blood lymphocytes/100 leukoc ytesOrdered By: Renard Burgos on 05-08-2023 Lymphocytes/100 WBC (Bld) 27.4 % 19-41 [facility] Blood monocytes/100 leukocyt esOrdered By: Renard Burgos on 05-08-2023 Monocytes/100 WBC (Bld) 5.6 % 0-10 [facility] Blood platelet mean volumeOr dered By: Renard Burgos on 05-08-2023 Platelet mean volume (Bld) [Entitic vol] 11.0 fL 6.2-12.0 [facility] Determination of erythrocyte mean corpuscular volume (MCV)Ordered By: Renard Burgos on 05-08-2023 MCV (RBC) [Entitic vol] 91.8 fL 80-94 [facility] Hematocrit Auto (Bld) [Volum e fraction]Ordered By: Renard Burgos on 05-08-2023 Hematocrit (Bld) [Volume fraction] 42.4 % 40-54 [facility] Laboratory - Hematology and Cell countsOrdered By: Renard Burgos on 05-08-2023 Erythrocyte distribution width (RBC) [Entitic vol] 43.1 fL 35.1-43.9 [facility] Erythrocyte distribution width (RBC) [Ratio] 13.0 % 11.6-14.6 [facility] Immature granulocytes/100 WBC (Bld) 0.400 % 0.0-0.9 [facility] Comment on above: IG% - Immature Granu locytes (promyelocytes, myelocytes and metamyelocytes) > 1% indicates that a LEFT SHIFT is Present. MCH (RBC) [Entitic mass] 29.4 pg 27.0-32.0 [facility] Nucleated RBC/100 WBC (Bld) [Ratio] 0 % 0-5 [facility] MCHC Auto (RBC) [Mass/Vol]Or dered By: Renard Burgos on 05-08-2023 MCHC (RBC) [Mass/Vol] 32.1 g/dL 32-36 [facility] Platelets bldOrdered By: Lyubov Burgos on 05-08-2023 Platelets (Bld) [#/Vol] 226 10*3/uL 150-450 [facility] Absolute lymphocyte countOrd ered By: Renard Burgos on 04-17-2023 Lymphocytes Auto (Unsp spec) [#/Vol] 0.92 10*3/uL 0.83-4.51 [facility] Basophil percentageOrdered B y: Renard Burgos on 04-17-2023 Basophils/100 WBC (Bld) 0.1 % 0-1 [facility] Eosinophils/100 WBC (Bld) 0.0 % 0-5 [facility] Neutrophils (Bld) [#/Vol] 6.0 10*3/uL 2.0-7.7 [facility] Neutrophils/100 WBC (Bld) 81.4 % 47-70 [facility] WBC (Bld) [#/Vol] 7.4 10*3/uL 4.4-11.0 [facility] Blood erythrocytes count (nu mber/volume)Ordered By: Renard Burgos on 04-17-2023 RBC (Bld) [#/Vol] 4.59 10*6/uL 4.6-6.2 [facility] Blood hemoglobin measurement (mass/volume)Ordered By: Renard Burgos on 04-17-2023 Hemoglobin (Bld) [Mass/Vol] 13.7 g/dL 13.0-16.5 [facility] Blood lymphocytes/100 leukoc ytesOrdered By: Renard Burgos on 04-17-2023 Lymphocytes/100 WBC (Bld) 12.5 % 19-41 [facility] Blood monocytes/100 leukocyt esOrdered By: Renard Burgos on 04-17-2023 Monocytes/100 WBC (Bld) 5.6 % 0-10 [facility] Blood platelet mean volumeOr dered By: Renard Burgos on 04-17-2023 Platelet mean volume (Bld) [Entitic vol] 10.9 fL 6.2-12.0 [facility] Determination of erythrocyte mean corpuscular volume (MCV)Ordered By: Renard Burgos on 04-17-2023 MCV (RBC) [Entitic vol] 90.8 fL 80-94 [facility] Hematocrit Auto (Bld) [Volum e fraction]Ordered By: Renard Burgos on 04-17-2023 Hematocrit (Bld) [Volume fraction] 41.7 % 40-54 [facility] Laboratory - Hematology and Cell countsOrdered By: Renard Burgos on 04-17-2023 Erythrocyte distribution width (RBC) [Entitic vol] 42.3 fL 35.1-43.9 [facility] Erythrocyte distribution width (RBC) [Ratio] 12.8 % 11.6-14.6 [facility] Immature granulocytes/100 WBC (Bld) 0.400 % 0.0-0.9 [facility] Comment on above: IG% - Immature Granu locytes (promyelocytes, myelocytes and metamyelocytes) > 1% indicates that a LEFT SHIFT is Present. MCH (RBC) [Entitic mass] 29.8 pg 27.0-32.0 [facility] Nucleated RBC/100 WBC (Bld) [Ratio] 0 % 0-5 [facility] MCHC Auto (RBC) [Mass/Vol]Or dered By: Renard Burgos on 04-17-2023 MCHC (RBC) [Mass/Vol] 32.9 g/dL 32-36 [facility] Platelets bldOrdered By: Lyubov Burgos on 04-17-2023 Platelets (Bld) [#/Vol] 194 10*3/uL 150-450 [facility] Basophil percentageOrdered B y: Renard Burgos on 04-14-2023 Bilirubin [Mass/Vol] 0.30 mg/dL 0.20-1.00 [facility] Comment on above: For patients on eltr ombopag therapy, use of Dimension [place] TBIL is not recommended. Protein [Mass/Vol] 6.2 g/dL 6.4-8.2 [facility] Direct bilirubinOrdered By: Renard Burgos on 04-14-2023 Bilirubin.direct [Mass/Vol] 0.11 mg/dL 0.00-0.30 [facility] Laboratory - Chemistry and C hemistry - challengeOrdered By: Renard Burgos on 04-14-2023 ALP [Catalytic activity/Vol] 139 U/L 45-117 [facility] ALT [Catalytic activity/Vol] 23 U/L 16-61 [facility] Globulin (S) [Mass/Vol] 3.2 g/dL 2.2-4.2 [facility] Serum or plasma albumin gordy urement (mass/volume)Ordered By: Renard Burgos on 04-14-2023 Albumin [Mass/Vol] 3.0 g/dL 3.2-5.0 [facility] Thin prep Papanicolaou smear with manual screeningOrdered By: Renard Burgos on 04-14-2023 Thin prep Papanicolaou smear with manual screening 14 U/L 15-37 [facility] Absolute lymphocyte countOrd ered By: Renard Burgos on 04-10-2023 Lymphocytes Auto (Unsp spec) [#/Vol] 2.54 10*3/uL 0.83-4.51 [facility] Basophil percentageOrdered B y: Renard Burgos on 04-10-2023 Basophils/100 WBC (Bld) 0.5 % 0-1 [facility] Eosinophils/100 WBC (Bld) 0.5 % 0-5 [facility] Neutrophils (Bld) [#/Vol] 5.1 10*3/uL 2.0-7.7 [facility] Neutrophils/100 WBC (Bld) 59.0 % 47-70 [facility] WBC (Bld) [#/Vol] 8.7 10*3/uL 4.4-11.0 [facility] Blood erythrocytes count (nu mber/volume)Ordered By: Renard Burgos on 04-10-2023 RBC (Bld) [#/Vol] 4.84 10*6/uL 4.6-6.2 [facility] Blood hemoglobin measurement (mass/volume)Ordered By: Renard Burgos on 04-10-2023 Hemoglobin (Bld) [Mass/Vol] 14.2 g/dL 13.0-16.5 [facility] Blood lymphocytes/100 leukoc ytesOrdered By: Renard Burgos on 04-10-2023 Lymphocytes/100 WBC (Bld) 29.4 % 19-41 [facility] Blood monocytes/100 leukocyt esOrdered By: Renard Burgos on 04-10-2023 Monocytes/100 WBC (Bld) 10.3 % 0-10 [facility] Blood platelet mean volumeOr dered By: Renard Burgos on 04-10-2023 Platelet mean volume (Bld) [Entitic vol] 11.1 fL 6.2-12.0 [facility] Determination of erythrocyte mean corpuscular volume (MCV)Ordered By: Renard Burgos on 04-10-2023 MCV (RBC) [Entitic vol] 91.5 fL 80-94 [facility] Hematocrit Auto (Bld) [Volum e fraction]Ordered By: Renard Burgos on 04-10-2023 Hematocrit (Bld) [Volume fraction] 44.3 % 40-54 [facility] Laboratory - Hematology and Cell countsOrdered By: Renard Burgos on 04-10-2023 Erythrocyte distribution width (RBC) [Entitic vol] 41.9 fL 35.1-43.9 [facility] Erythrocyte distribution width (RBC) [Ratio] 12.6 % 11.6-14.6 [facility] Immature granulocytes/100 WBC (Bld) 0.300 % 0.0-0.9 [facility] Comment on above: IG% - Immature Granu locytes (promyelocytes, myelocytes and metamyelocytes) > 1% indicates that a LEFT SHIFT is Present. MCH (RBC) [Entitic mass] 29.3 pg 27.0-32.0 [facility] Nucleated RBC/100 WBC (Bld) [Ratio] 0 % 0-5 [facility] MCHC Auto (RBC) [Mass/Vol]Or dered By: Renard Burgos on 04-10-2023 MCHC (RBC) [Mass/Vol] 32.1 g/dL 32-36 [facility] Platelets bldOrdered By: Lyubov Burgos on 04-10-2023 Platelets (Bld) [#/Vol] 216 10*3/uL 150-450 [facility] Absolute lymphocyte countOrd ered By: Renard Burgos on 04-03-2023 Lymphocytes Auto (Unsp spec) [#/Vol] 1.91 10*3/uL 0.83-4.51 [facility] Basophil percentageOrdered B y: Renard Burgos on 04-03-2023 Basophils/100 WBC (Bld) 0.5 % 0-1 [facility] Eosinophils/100 WBC (Bld) 0.5 % 0-5 [facility] Neutrophils (Bld) [#/Vol] 5.0 10*3/uL 2.0-7.7 [facility] Neutrophils/100 WBC (Bld) 66.5 % 47-70 [facility] WBC (Bld) [#/Vol] 7.6 10*3/uL 4.4-11.0 [facility] Blood erythrocytes count (nu mber/volume)Ordered By: Renard Burgos on 12-04-2023 RBC (Bld) [#/Vol] 4.62 10*6/uL 4.6-6.2 [facility] Blood hemoglobin measurement (mass/volume)Ordered By: Renard Burgos on 04-03-2023 Hemoglobin (Bld) [Mass/Vol] 13.7 g/dL 13.0-16.5 [facility] Blood lymphocytes/100 leukoc ytesOrdered By: Renard Burgos on 04-03-2023 Lymphocytes/100 WBC (Bld) 25.2 % 19-41 [facility] Blood monocytes/100 leukocyt esOrdered By: Renard Burgos on 04-03-2023 Monocytes/100 WBC (Bld) 6.9 % 0-10 [facility] Blood platelet mean volumeOr dered By: Renard Burgos on 04-03-2023 Platelet mean volume (Bld) [Entitic vol] 10.8 fL 6.2-12.0 [facility] Determination of erythrocyte mean corpuscular volume (MCV)Ordered By: Renard Burgos on 04-03-2023 MCV (RBC) [Entitic vol] 91.6 fL 80-94 [facility] Hematocrit Auto (Bld) [Volum e fraction]Ordered By: Renard Burgos on 04-03-2023 Hematocrit (Bld) [Volume fraction] 42.3 % 40-54 [facility] Laboratory - Hematology and Cell countsOrdered By: Renard Burgos on 04-03-2023 Erythrocyte distribution width (RBC) [Entitic vol] 42.6 fL 35.1-43.9 [facility] Erythrocyte distribution width (RBC) [Ratio] 12.8 % 11.6-14.6 [facility] Immature granulocytes/100 WBC (Bld) 0.400 % 0.0-0.9 [facility] Comment on above: IG% - Immature Granu locytes (promyelocytes, myelocytes and metamyelocytes) > 1% indicates that a LEFT SHIFT is Present. MCH (RBC) [Entitic mass] 29.7 pg 27.0-32.0 [facility] Nucleated RBC/100 WBC (Bld) [Ratio] 0 % 0-5 [facility] MCHC Auto (RBC) [Mass/Vol]Or dered By: Renard Burgos on 04-03-2023 MCHC (RBC) [Mass/Vol] 32.4 g/dL 32-36 [facility] Platelets bldOrdered By: Lyubov lizy Loretta on 04-03-2023 Platelets (Bld) [#/Vol] 216 10*3/uL 150-450 [facility] Absolute lymphocyte countOrd ered By: Renard Brugos on 03-27-2023 Lymphocytes Auto (Unsp spec) [#/Vol] 2.06 10*3/uL 0.83-4.51 [facility] Basophil percentageOrdered B y: Renard Burgos on 03-27-2023 Basophils/100 WBC (Bld) 0.4 % 0-1 [facility] Eosinophils/100 WBC (Bld) 0.2 % 0-5 [facility] Neutrophils (Bld) [#/Vol] 6.3 10*3/uL 2.0-7.7 [facility] Neutrophils/100 WBC (Bld) 68.8 % 47-70 [facility] WBC (Bld) [#/Vol] 9.1 10*3/uL 4.4-11.0 [facility] Blood erythrocytes count (nu mber/volume)Ordered By: Renard Burgos on 03-27-2023 RBC (Bld) [#/Vol] 4.51 10*6/uL 4.6-6.2 [facility] Blood hemoglobin measurement (mass/volume)Ordered By: Renard Burgos on 03-27-2023 Hemoglobin (Bld) [Mass/Vol] 13.2 g/dL 13.0-16.5 [facility] Blood lymphocytes/100 leukoc ytesOrdered By: Renard Burgos on 03-27-2023 Lymphocytes/100 WBC (Bld) 22.6 % 19-41 [facility] Blood monocytes/100 leukocyt esOrdered By: Renard Burgos on 03-27-2023 Monocytes/100 WBC (Bld) 7.3 % 0-10 [facility] Blood platelet mean volumeOr dered By: Renard Burgos on 03-27-2023 Platelet mean volume (Bld) [Entitic vol] 10.8 fL 6.2-12.0 [facility] Determination of erythrocyte mean corpuscular volume (MCV)Ordered By: Renard Burgos on 03-27-2023 MCV (RBC) [Entitic vol] 91.6 fL 80-94 [facility] Hematocrit Auto (Bld) [Volum e fraction]Ordered By: Renard Burgos on 03-27-2023 Hematocrit (Bld) [Volume fraction] 41.3 % 40-54 [facility] Laboratory - Hematology and Cell countsOrdered By: Renard Burgos on 03-27-2023 Erythrocyte distribution width (RBC) [Entitic vol] 42.9 fL 35.1-43.9 [facility] Erythrocyte distribution width (RBC) [Ratio] 12.9 % 11.6-14.6 [facility] Immature granulocytes/100 WBC (Bld) 0.700 % 0.0-0.9 [facility] Comment on above: IG% - Immature Granu locytes (promyelocytes, myelocytes and metamyelocytes) > 1% indicates that a LEFT SHIFT is Present. MCH (RBC) [Entitic mass] 29.3 pg 27.0-32.0 [facility] Nucleated RBC/100 WBC (Bld) [Ratio] 0 % 0-5 [facility] MCHC Auto (RBC) [Mass/Vol]Or dered By: Renard Burgos on 03-27-2023 MCHC (RBC) [Mass/Vol] 32.0 g/dL 32-36 [facility] Platelets bldOrdered By: Lyubov Burgos on 03-27-2023 Platelets (Bld) [#/Vol] 205 10*3/uL 150-450 [facility] Absolute lymphocyte countOrd ered By: Renard Burgos on 03-20-2023 Lymphocytes Auto (Unsp spec) [#/Vol] 1.89 10*3/uL 0.83-4.51 [facility] Basophil percentageOrdered B y: Renard Burgos on 03-20-2023 Basophils/100 WBC (Bld) 0.5 % 0-1 [facility] Chloride [Moles/Vol] 107 mmol/L 98-[facility] WBC (Bld) 0.4 % 0-5 [facility] Glucose [Mass/Vol] 124 mg/dL 74-106 [facility] Comment on above: Fasting Glucose resu lt from 100 to 125 mg/dL suggests IMPAIRED HOMEOSTASIS per A.D.A. criteria. Neutrophils (Bld) [#/Vol] 4.8 10*3/uL 2.0-7.7 [facility] Neutrophils/100 WBC (Bld) 64.9 % 47-70 [facility] Potassium [Moles/Vol] 3.6 mmol/L 3.5-5.1 [facility] Sodium [Moles/Vol] 142 mmol/L 136-145 [facility] WBC (Bld) [#/Vol] 7.4 10*3/uL 4.4-11.0 [facility] Blood erythrocytes count (nu mber/volume)Ordered By: Renard Burgos on 03-20-2023 RBC (Bld) [#/Vol] 4.63 10*6/uL 4.6-6.2 [facility] Blood hemoglobin measurement (mass/volume)Ordered By: Renard Burgos on 03-20-2023 Hemoglobin (Bld) [Mass/Vol] 13.7 g/dL 13.0-16.5 [facility] Blood lymphocytes/100 leukoc ytesOrdered By: Renard Burgos on 03-20-2023 Lymphocytes/100 WBC (Bld) 25.7 % 19-41 [facility] Blood monocytes/100 leukocyt esOrdered By: Renard Burgos on 03-20-2023 Monocytes/100 WBC (Bld) 8.2 % 0-10 [facility] Blood platelet mean volumeOr dered By: Renard Burgos on 03-20-2023 Platelet mean volume (Bld) [Entitic vol] 10.7 fL 6.2-12.0 [facility] Determination of erythrocyte mean corpuscular volume (MCV)Ordered By: Renard Burgos on 03-20-2023 MCV (RBC) [Entitic vol] 90.9 fL 80-94 [facility] Hematocrit Auto (Bld) [Volum e fraction]Ordered By: Renard Burgos on 03-20-2023 Hematocrit (Bld) [Volume fraction] 42.1 % 40-54 [facility] Laboratory - Chemistry and C hemistry - challengeOrdered By: Renard Burgos on 03-20-2023 CO2 [Moles/Vol] 29.0 mmol/L 21.0-32.0 [facility] Urea nitrogen/Creatinine [Mass ratio] 30.7 mg/mg 10-20 [facility] Laboratory - Hematology and Cell countsOrdered By: Renard Burgos on 03-20-2023 Erythrocyte distribution width (RBC) [Entitic vol] 43.0 fL 35.1-43.9 [facility] Erythrocyte distribution width (RBC) [Ratio] 12.9 % 11.6-14.6 [facility] Immature granulocytes/100 WBC (Bld) 0.300 % 0.0-0.9 [facility] Comment on above: IG% - Immature Granu locytes (promyelocytes, myelocytes and metamyelocytes) > 1% indicates that a LEFT SHIFT is Present. MCH (RBC) [Entitic mass] 29.6 pg 27.0-32.0 [facility] Nucleated RBC/100 WBC (Bld) [Ratio] 0 % 0-5 [facility] MCHC Auto (RBC) [Mass/Vol]Or dered By: Renard Burgos on 03-20-2023 MCHC (RBC) [Mass/Vol] 32.5 g/dL 32-36 [facility] No Panel InformationOrdered By: Renard Burgos on 03-20-2023 Estimated GFR (MDRD) Amer 178 mL/min >60 [facility] Comment on above: GFR Calc Estimated GFR (MDRD) Non-Af Amer 147 mL/min >60 [facility] Comment on above: Non- GFR Calc Platelets bldOrdered By: Lyubov Burgos on 03-20-2023 Platelets (Bld) [#/Vol] 208 10*3/uL 150-450 [facility] Serum or plasma calcium gordy urement (mass/volume)Ordered By: Renard Burgos on 03-20-2023 Calcium [Mass/Vol] 8.1 mg/dL 8.5-10.1 [facility] Serum or plasma creatinine m easurement (mass/volume)Ordered By: Renard Burgos on 03-20-2023 Creatinine [Mass/Vol] 0.59 mg/dL 0.70-1.30 [facility] Comment on above: The validity of the calculated GFR & GFRAA in patients over 70 years has not been determined. Clinical correlation is essential. Serum or plasma urea nitroge n measurement (mass/volume)Ordered By: Renard Burgos on 03-20-2023 Urea nitrogen [Mass/Vol] 18 mg/dL 7-18 [facility] Thin prep Papanicolaou smear with manual screeningOrdered By: Renard Burgos on 03-20-2023 Thin prep Papanicolaou smear with manual screening 6 5-15 [facility] Erythrocyte sedimentation ra teOrdered By: Renard Burgos on 03-16-2023 ESR (Bld) [Velocity] 3 mm/h 0-20 [facility] Absolute lymphocyte countOrd ered By: Renard Burgos on 03-13-2023 Lymphocytes Auto (Unsp spec) [#/Vol] 2.36 10*3/uL 0.83-4.51 [facility] Basophil percentageOrdered B y: Renard Burgos on 03-13-2023 Basophils/100 WBC (Bld) 0.5 % 0-1 [facility] Eosinophils/100 WBC (Bld) 0.5 % 0-5 [facility] Neutrophils (Bld) [#/Vol] 5.2 10*3/uL 2.0-7.7 [facility] Neutrophils/100 WBC (Bld) 61.3 % 47-70 [facility] WBC (Bld) [#/Vol] 8.5 10*3/uL 4.4-11.0 [facility] Blood erythrocytes count (nu mber/volume)Ordered By: Renard Burgos on 03-13-2023 RBC (Bld) [#/Vol] 4.55 10*6/uL 4.6-6.2 [facility] Blood hemoglobin measurement (mass/volume)Ordered By: Renard Burgos on 03-13-2023 Hemoglobin (Bld) [Mass/Vol] 13.4 g/dL 13.0-16.5 [facility] Blood lymphocytes/100 leukoc ytesOrdered By: Renard Burgos on 03-13-2023 Lymphocytes/100 WBC (Bld) 27.7 % 19-41 [facility] Blood monocytes/100 leukocyt esOrdered By: Renard Burgos on 03-13-2023 Monocytes/100 WBC (Bld) 9.5 % 0-10 [facility] Blood platelet mean volumeOr dered By: Renard Burgos on 03-13-2023 Platelet mean volume (Bld) [Entitic vol] 10.6 fL 6.2-12.0 [facility] Determination of erythrocyte mean corpuscular volume (MCV)Ordered By: Renard Burgos on 03-13-2023 MCV (RBC) [Entitic vol] 93.4 fL 80-94 [facility] Hematocrit Auto (Bld) [Volum e fraction]Ordered By: Renard Burgos on 03-13-2023 Hematocrit (Bld) [Volume fraction] 42.5 % 40-54 [facility] Laboratory - Hematology and Cell countsOrdered By: Renard Burgos on 03-13-2023 Erythrocyte distribution width (RBC) [Entitic vol] 44.1 fL 35.1-43.9 [facility] Erythrocyte distribution width (RBC) [Ratio] 13.0 % 11.6-14.6 [facility] Immature granulocytes/100 WBC (Bld) 0.500 % 0.0-0.9 [facility] Comment on above: IG% - Immature Granu locytes (promyelocytes, myelocytes and metamyelocytes) > 1% indicates that a LEFT SHIFT is Present. MCH (RBC) [Entitic mass] 29.5 pg 27.0-32.0 [facility] Nucleated RBC/100 WBC (Bld) [Ratio] 0 % 0-5 [facility] MCHC Auto (RBC) [Mass/Vol]Or dered By: Renard Burgos on 03-13-2023 MCHC (RBC) [Mass/Vol] 31.5 g/dL 32-36 [facility] Platelets bldOrdered By: Lyubov Burgos on 03-13-2023 Platelets (Bld) [#/Vol] 200 10*3/uL 150-450 [facility] Absolute lymphocyte countOrd ered By: Renard Burgos on 03-06-2023 Lymphocytes Auto (Unsp spec) [#/Vol] 1.80 10*3/uL 0.83-4.51 [facility] Basophil percentageOrdered B y: Renard Burgos on 03-06-2023 Basophils/100 WBC (Bld) 0.5 % 0-1 [facility] Bilirubin [Mass/Vol] 0.40 mg/dL 0.20-1.00 [facility] Comment on above: For patients on eltr ombopag therapy, use of Dimension [place] TBIL is not recommended. Chloride [Moles/Vol] 107 mmol/L 98-107 [facility] Cholesterol [Mass/Vol] 118 mg/dL <200 [facility] Comment on above: <200 mg/dL Desirable 200-240 mg/dL Borderline >240 mg/dL High Risk Eosinophils/100 WBC (Bld) 0.5 % 0-5 [facility] Glucose [Mass/Vol] 107 mg/dL 74-106 [facility] Comment on above: Fasting Glucose resu lt from 100 to 125 mg/dL suggests IMPAIRED HOMEOSTASIS per A.D.A. criteria. Neutrophils (Bld) [#/Vol] 5.5 10*3/uL 2.0-7.7 [facility] Neutrophils/100 WBC (Bld) 68.0 % 47-70 [facility] Potassium [Moles/Vol] 3.8 mmol/L 3.5-5.1 [facility] Protein [Mass/Vol] 6.3 g/dL 6.4-8.2 [facility] Sodium [Moles/Vol] 141 mmol/L 136-145 [facility] Triglyceride [Mass/Vol] 185 mg/dL <199 [facility] Comment on above: The drugs N-Acetylcy steine and Metamizole may falsely depress this assay.Serum Triglycerides Reference Interval Normal <150 mg/dL Borderline high 150 - 199 mg/dL High 200 - 499 mg/dL Very High > or = 500 mg/dL WBC (Bld) [#/Vol] 8.1 10*3/uL 4.4-11.0 [facility] Blood erythrocytes count (nu mber/volume)Ordered By: Renard Burgos on 03-06-2023 RBC (Bld) [#/Vol] 4.69 10*6/uL 4.6-6.2 [facility] Blood hemoglobin measurement (mass/volume)Ordered By: Renard Burgos on 03-06-2023 Hemoglobin (Bld) [Mass/Vol] 14.0 g/dL 13.0-16.5 [facility] Blood lymphocytes/100 leukoc ytesOrdered By: Renard Burgos on 03-06-2023 Lymphocytes/100 WBC (Bld) 22.3 % 19-41 [facility] Blood monocytes/100 leukocyt esOrdered By: Renard Burgos on 03-06-2023 Monocytes/100 WBC (Bld) 8.2 % 0-10 [facility] Blood platelet mean volumeOr dered By: Renard Burgos on 03-06-2023 Platelet mean volume (Bld) [Entitic vol] 10.9 fL 6.2-12.0 [facility] Determination of erythrocyte mean corpuscular volume (MCV)Ordered By: Renard Burgos on 03-06-2023 MCV (RBC) [Entitic vol] 91.9 fL 80-94 [facility] Hematocrit Auto (Bld) [Volum e fraction]Ordered By: Renard Burgos on 03-06-2023 Hematocrit (Bld) [Volume fraction] 43.1 % 40-54 [facility] Laboratory - Chemistry and C hemistry - challengeOrdered By: Renard Burgos on 03-06-2023 ALP [Catalytic activity/Vol] 120 U/L 45-117 [facility] ALT [Catalytic activity/Vol] 20 U/L 16-61 [facility] CO2 [Moles/Vol] 30.0 mmol/L 21.0-32.0 [facility] Globulin (S) [Mass/Vol] 3.3 g/dL 2.2-4.2 [facility] Urea nitrogen/Creatinine [Mass ratio] 27.1 mg/mg 10-20 [facility] Laboratory - Hematology and Cell countsOrdered By: Renard Burgos on 03-06-2023 Erythrocyte distribution width (RBC) [Entitic vol] 42.5 fL 35.1-43.9 [facility] Erythrocyte distribution width (RBC) [Ratio] 12.9 % 11.6-14.6 [facility] Immature granulocytes/100 WBC (Bld) 0.500 % 0.0-0.9 [facility] Comment on above: IG% - Immature Granu locytes (promyelocytes, myelocytes and metamyelocytes) > 1% indicates that a LEFT SHIFT is Present. MCH (RBC) [Entitic mass] 29.9 pg 27.0-32.0 [facility] Nucleated RBC/100 W[facility] (Bld) [Ratio] 0 % 0-5 [facility] [Mass/Vol]Or dered By: Renard Burgos on 03-06-2023 MCHC (RBC) [Mass/Vol] 32.5 g/dL 32-36 [facility] No Panel InformationOrdered By: Renard Burgos on 03-06-2023 Estimated GFR (MDRD) Amer 165 mL/min >60 [facility] Comment on above: GFR Calc Estimated GFR (MDRD) Non-Af Amer 136 mL/min >60 [facility] Comment on above: Non- GFR Calc Platelets bldOrdered By: Lyubov Burgos on 03-06-2023 Platelets (Bld) [#/Vol] 232 10*3/uL 150-450 [facility] Serum or plasma albumin gordy urement (mass/volume)Ordered By: Renard Burgos on 03-06-2023 Albumin [Mass/Vol] 3.0 g/dL 3.2-5.0 [facility] Serum or plasma albumin/glob ulin mass ratioOrdered By: Renard Burgos on 03-06-2023 Albumin/Globulin [Mass ratio] 0.9 {ratio} 0.9-2.4 [facility] Serum or plasma calcium gordy urement (mass/volume)Ordered By: Renard Burgos on 03-06-2023 Calcium [Mass/Vol] 8.2 mg/dL 8.5-10.1 [facility] Serum or plasma cholesterol in HDL measurement (mass/volume)Ordered By: Renard Burgos on 03-06-2023 Cholesterol in HDL [Mass/Vol] 25 mg/dL >40 [facility] Comment on above: The drugs N-Acetylcy steine and Metamizole may falsely depress this assay. Reference Range HDL <40 mg/dL Low HDL Cholesterol HDL >or= 60 mg/dL High HDL Cholesterol Serum or plasma cholesterol in VLDL measurement (mass/volume)Ordered By: Renard Burgos on 03-06-2023 Cholesterol in VLDL [Mass/Vol] 37 mg/dL 5-40 [facility] Serum or plasma creatinine m easurement (mass/volume)Ordered By: Renard Burgos on 03-06-2023 Creatinine [Mass/Vol] 0.63 mg/dL 0.70-1.30 [facility] Comment on above: The validity of the calculated GFR & GFRAA in patients over 70 years has not been determined. Clinical correlation is essential. Serum or plasma low density lipoprotein (LDL) cholesterol measurement (mass/volume)Ordered By: Renard Burgos on 03-06-2023 Cholesterol in LDL [Mass/Vol] 56 mg/dL 0-130 [facility] Serum or plasma urea nitroge n measurement (mass/volume)Ordered By: Renard Burgos on 03-06-2023 Urea nitrogen [Mass/Vol] 17 mg/dL 7-18 [facility] Thin prep Papanicolaou smear with manual screeningOrdered By: Renard Burgos on 03-06-2023 Thin prep Papanicolaou smear with manual screening 10 U/L 15-37 [facility] Thin prep Papanicolaou smear with manual screening 4 5-15 [facility] Absolute lymphocyte countOrd ered By: Renard Burgos on 02-27-2023 Lymphocytes Auto (Unsp spec) [#/Vol] 2.13 10*3/uL 0.83-4.51 [facility] Basophil percentageOrdered B y: Renard Burgos on 02-27-2023 Basophils/100 WBC (Bld) 0.6 % 0-1 [facility] Eosinophils/100 WBC (Bld) 0.6 % 0-5 [facility] Neutrophils (Bld) [#/Vol] 5.1 10*3/uL 2.0-7.7 [facility] Neutrophils/100 WBC (Bld) 63.3 % 47-70 [facility] WBC (Bld) [#/Vol] 8.1 10*3/uL 4.4-11.0 [facility] Blood erythrocytes count (nu mber/volume)Ordered By: Renard Burgos on 02-27-2023 RBC (Bld) [#/Vol] 4.54 10*6/uL 4.6-6.2 [facility] Blood hemoglobin measurement (mass/volume)Ordered By: Renard Burgos on 02-27-2023 Hemoglobin (Bld) [Mass/Vol] 13.7 g/dL 13.0-16.5 [facility] Blood lymphocytes/100 leukoc ytesOrdered By: Renard Burgos on 02-27-2023 Lymphocytes/100 WBC (Bld) 26.4 % 19-41 [facility] Blood monocytes/100 leukocyt esOrdered By: Renard Burgos on 02-27-2023 Monocytes/100 WBC (Bld) 8.7 % 0-10 [facility] Blood platelet mean volumeOr dered By: Renard Burgos on 02-27-2023 Platelet mean volume (Bld) [Entitic vol] 10.8 fL 6.2-12.0 [facility] Determination of erythrocyte mean corpuscular volume (MCV)Ordered By: Renard Burgos on 02-27-2023 MCV (RBC) [Entitic vol] 89.9 fL 80-94 [facility] Hematocrit Auto (Bld) [Volum e fraction]Ordered By: Renard Burgos on 02-27-2023 Hematocrit (Bld) [Volume fraction] 40.8 % 40-54 [facility] Laboratory - Hematology and Cell countsOrdered By: Renard Burgos on 02-27-2023 Erythrocyte distribution width (RBC) [Entitic vol] 41.0 fL 35.1-43.9 [facility] Erythrocyte distribution width (RBC) [Ratio] 12.5 % 11.6-14.6 [facility] Immature granulocytes/100 WBC (Bld) 0.400 % 0.0-0.9 [facility] Comment on above: IG% - Immature Granu locytes (promyelocytes, myelocytes and metamyelocytes) > 1% indicates that a LEFT SHIFT is Present. MCH (RBC) [Entitic mass] 30.2 pg 27.0-32.0 [facility] Nucleated RBC/100 WBC (Bld) [Ratio] 0 % 0-5 [facility] MCHC Auto (RBC) [Mass/Vol]Or dered By: Renard Burgos on 02-27-2023 MCHC (RBC) [Mass/Vol] 33.6 g/dL 32-36 [facility] Platelets bldOrdered By: Pet lizy Burgos on 02-27-2023 Platelets (Bld) [#/Vol] 182 10*3/uL 150-450 [facility] Absolute lymphocyte countOrd ered By: Renard Burgos on 02-20-2023 Lymphocytes Auto (Unsp spec) [#/Vol] 2.23 10*3/uL 0.83-4.51 [facility] Basophil percentageOrdered B y: Renard Burgos on 02-20-2023 Basophils/100 WBC (Bld) 0.3 % 0-1 [facility] Eosinophils/100 WBC (Bld) 0.7 % 0-5 [facility] Neutrophils (Bld) [#/Vol] 5.9 10*3/uL 2.0-7.7 [facility] Neutrophils/100 WBC (Bld) 65.7 % 47-70 [facility] WBC (Bld) [#/Vol] 9.0 10*3/uL 4.4-11.0 [facility] Blood erythrocytes count (nu mber/volume)Ordered By: Renard Burgos on 02-20-2023 RBC (Bld) [#/Vol] 4.46 10*6/uL 4.6-6.2 [facility] Blood hemoglobin measurement (mass/volume)Ordered By: Renard Burgos on 02-20-2023 Hemoglobin (Bld) [Mass/Vol] 13.3 g/dL 13.0-16.5 [facility] Blood lymphocytes/100 leukoc ytesOrdered By: Renard Burgos on 02-20-2023 Lymphocytes/100 WBC (Bld) 24.7 % 19-41 [facility] Blood monocytes/100 leukocyt esOrdered By: Renard Burgos on 02-20-2023 Monocytes/100 WBC (Bld) 8.0 % 0-10 [facility] Blood platelet mean volumeOr dered By: Renard Burgos on 02-20-2023 Platelet mean volume (Bld) [Entitic vol] 10.7 fL 6.2-12.0 [facility] Determination of erythrocyte mean corpuscular volume (MCV)Ordered By: Rneard Burgos on 02-20-2023 MCV (RBC) [Entitic vol] 90.6 fL 80-94 [facility] Hematocrit Auto (Bld) [Volum e fraction]Ordered By: Renard Burgos on 02-20-2023 Hematocrit (Bld) [Volume fraction] 40.4 % 40-54 [facility] Laboratory - Hematology and Cell countsOrdered By: Renard Burgos on 02-20-2023 Erythrocyte distribution width (RBC) [Entitic vol] 41.9 fL 35.1-43.9 [facility] Erythrocyte distribution width (RBC) [Ratio] 12.8 % 11.6-14.6 [facility] Immature granulocytes/100 WBC (Bld) 0.600 % 0.0-0.9 [facility] Comment on above: IG% - Immature Granu locytes (promyelocytes, myelocytes and metamyelocytes) > 1% indicates that a LEFT SHIFT is Present. MCH (RBC) [Entitic mass] 29.8 pg 27.0-32.0 [facility] Nucleated RBC/100 WBC (Bld) [Ratio] 0 % 0-5 [facility] MCHC Auto (RBC) [Mass/Vol]Or dered By: Renard Burgos on 02-20-2023 MCHC (RBC) [Mass/Vol] 32.9 g/dL 32-36 [facility] Platelets bldOrdered By: Lyubov Burgos on 02-20-2023 Platelets (Bld) [#/Vol] 220 10*3/uL 150-450 [facility] Absolute lymphocyte countOrd ered By: Renard Burgos on 02-13-2023 Lymphocytes Auto (Unsp spec) [#/Vol] 2.01 10*3/uL 0.83-4.51 [facility] Basophil percentageOrdered B y: Renard Burgos on 02-13-2023 Basophils/100 WBC (Bld) 0.7 % 0-1 [facility] Eosinophils/100 WBC (Bld) 0.5 % 0-5 [facility] Neutrophils (Bld) [#/Vol] 4.7 10*3/uL 2.0-7.7 [facility] Neutrophils/100 WBC (Bld) 63.3 % 47-70 [facility] WBC (Bld) [#/Vol] 7.4 10*3/uL 4.4-11.0 [facility] Blood erythrocytes count (nu mber/volume)Ordered By: Renard Burgos on 02-13-2023 RBC (Bld) [#/Vol] 4.46 10*6/uL 4.6-6.2 [facility] Blood hemoglobin measurement (mass/volume)Ordered By: Renard Burgos on 02-13-2023 Hemoglobin (Bld) [Mass/Vol] 13.6 g/dL 13.0-16.5 [facility] Blood lymphocytes/100 leukoc ytesOrdered By: Renard Burgos on 02-13-2023 Lymphocytes/100 WBC (Bld) 27.0 % 19-41 [facility] Blood monocytes/100 leukocyt esOrdered By: Renard Burgos on 02-13-2023 Monocytes/100 WBC (Bld) 8.1 % 0-10 [facility] Blood platelet mean volumeOr dered By: Renard Burgos on 02-13-2023 Platelet mean volume (Bld) [Entitic vol] 10.7 fL 6.2-12.0 [facility] Determination of erythrocyte mean corpuscular volume (MCV)Ordered By: Renard Burgos on 02-13-2023 MCV (RBC) [Entitic vol] 92.6 fL 80-94 [facility] Hematocrit Auto (Bld) [Volum e fraction]Ordered By: Renard Burgos on 02-13-2023 Hematocrit (Bld) [Volume fraction] 41.3 % 40-54 [facility] Laboratory - Hematology and Cell countsOrdered By: Renard Burgos on 02-13-2023 Erythrocyte distribution width (RBC) [Entitic vol] 42.7 fL 35.1-43.9 [facility] Erythrocyte distribution width (RBC) [Ratio] 12.6 % 11.6-14.6 [facility] Immature granulocytes/100 WBC (Bld) 0.400 % 0.0-0.9 [facility] Comment on above: IG% - Immature Granu locytes (promyelocytes, myelocytes and metamyelocytes) > 1% indicates that a LEFT SHIFT is Present. MCH (RBC) [Entitic mass] 30.5 pg 27.0-32.0 [facility] Nucleated RBC/100 WBC (Bld) [Ratio] 0 % 0-5 [facility] MCHC Auto (RBC) [Mass/Vol]Or dered By: Renard Burgos on 02-13-2023 MCHC (RBC) [Mass/Vol] 32.9 g/dL 32-36 [facility] Platelets bldOrdered By: Pet lizy Loretta on 02-13-2023 Platelets (Bld) [#/Vol] 187 10*3/uL 150-450 [facility] Absolute lymphocyte countOrd ered By: Renard Burgos on 02-06-2023 Lymphocytes Auto (Unsp spec) [#/Vol] 2.28 10*3/uL 0.83-4.51 [facility] Basophil percentageOrdered B y: Renard Burgos on 02-06-2023 Basophils/100 WBC (Bld) 0.5 % 0-1 [facility] Eosinophils/100 WBC (Bld) 0.7 % 0-5 [facility] Neutrophils (Bld) [#/Vol] 5.5 10*3/uL 2.0-7.7 [facility] Neutrophils/100 WBC (Bld) 63.7 % 47-70 [facility] WBC (Bld) [#/Vol] 8.6 10*3/uL 4.4-11.0 [facility] Blood erythrocytes count (nu mber/volume)Ordered By: Renard Burgos on 02-06-2023 RBC (Bld) [#/Vol] 4.71 10*6/uL 4.6-6.2 [facility] Blood hemoglobin measurement (mass/volume)Ordered By: Renard Burgos on 02-06-2023 Hemoglobin (Bld) [Mass/Vol] 14.1 g/dL 13.0-16.5 [facility] Blood lymphocytes/100 leukoc ytesOrdered By: Renard Burgos on 02-06-2023 Lymphocytes/100 WBC (Bld) 26.4 % 19-41 [facility] Blood monocytes/100 leukocyt esOrdered By: Renard Burgos on 02-06-2023 Monocytes/100 WBC (Bld) 8.2 % 0-10 [facility] Blood platelet mean volumeOr dered By: Renard Burgos on 02-06-2023 Platelet mean volume (Bld) [Entitic vol] 11.0 fL 6.2-12.0 [facility] Determination of erythrocyte mean corpuscular volume (MCV)Ordered By: Renard Burgos on 02-06-2023 MCV (RBC) [Entitic vol] 94.5 fL 80-94 [facility] Hematocrit Auto (Bld) [Volum e fraction]Ordered By: Renard Burgos on 02-06-2023 Hematocrit (Bld) [Volume fraction] 44.5 % 40-54 [facility] Laboratory - Hematology and Cell countsOrdered By: Renard Burgos on 02-06-2023 Erythrocyte distribution width (RBC) [Entitic vol] 43.5 fL 35.1-43.9 [facility] Erythrocyte distribution width (RBC) [Ratio] 12.7 % 11.6-14.6 [facility] Immature granulocytes/100 WBC (Bld) 0.500 % 0.0-0.9 [facility] Comment on above: IG% - Immature Granu locytes (promyelocytes, myelocytes and metamyelocytes) > 1% indicates that a LEFT SHIFT is Present. MCH (RBC) [Entitic mass] 29.9 pg 27.0-32.0 [facility] Nucleated RBC/100 WBC (Bld) [Ratio] 0 % 0-5 [facility] MCHC Auto (RBC) [Mass/Vol]Or dered By: Renard Burgos on 02-06-2023 MCHC (RBC) [Mass/Vol] 31.7 g/dL 32-36 [facility] Platelets bldOrdered By: Lyubov Burgos on 02-06-2023 Platelets (Bld) [#/Vol] 196 10*3/uL 150-450 [facility] Absolute lymphocyte countOrd ered By: Renard Burgos on 01-30-2023 Lymphocytes Auto (Unsp spec) [#/Vol] 1.91 10*3/uL 0.83-4.51 [facility] Basophil percentageOrdered B y: Renard Burgos on 01-30-2023 Basophils/100 WBC (Bld) 0.5 % 0-1 [facility] Eosinophils/100 WBC (Bld) 0.5 % 0-5 [facility] Neutrophils (Bld) [#/Vol] 6.0 10*3/uL 2.0-7.7 [facility] Neutrophils/100 WBC (Bld) 69.4 % 47-70 [facility] WBC (Bld) [#/Vol] 8.7 10*3/uL 4.4-11.0 [facility] Basophil percentage 0 SEEN /hpf 0-5 [facility] Bilirubin Test strip Ql (U)O rdered By: Renard Burgos on 01-30-2023 Bilirubin Ql (U) Negative Negative [facility] Blood erythrocytes count (nu mber/volume)Ordered By: Renard Burgos on 01-30-2023 RBC (Bld) [#/Vol] 4.50 10*6/uL 4.6-6.2 [facility] Blood hemoglobin measurement (mass/volume)Ordered By: Renard Burgos on 01-30-2023 Hemoglobin (Bld) [Mass/Vol] 13.5 g/dL 13.0-16.5 [facility] Blood lymphocytes/100 leukoc ytesOrdered By: Renard Burgos on 01-30-2023 Lymphocytes/100 WBC (Bld) 22.1 % 19-41 [facility] Blood monocytes/100 leukocyt esOrdered By: Renard Burgos on 01-30-2023 Monocytes/100 WBC (Bld) 7.2 % 0-10 [facility] Blood platelet mean volumeOr dered By: Renard Burgos on 01-30-2023 Platelet mean volume (Bld) [Entitic vol] 11.1 fL 6.2-12.0 [facility] Culture, urineOrdered By: Garrick Bhatt on 01-30-2023 Bacteria identified Cx Nom (U) Positive [facility] Determination of erythrocyte mean corpuscular volume (MCV)Ordered By: Renard Burgos on 01-30-2023 MCV (RBC) [Entitic vol] 91.3 fL 80-94 [facility] Hematocrit Auto (Bld) [Volum e fraction]Ordered By: Renard Burgos on 01-30-2023 Hematocrit (Bld) [Volume fraction] 41.1 % 40-54 [facility] Ketones Test strip Ql (U)Ord ered By: Renard Burgos on 01-30-2023 Ketones Ql (U) Negative Negative [facility] Laboratory - Hematology and Cell countsOrdered By: Renard Burgos on 01-30-2023 Erythrocyte distribution width (RBC) [Entitic vol] 41.4 fL 35.1-43.9 [facility] Erythrocyte distribution width (RBC) [Ratio] 12.6 % 11.6-14.6 [facility] Immature granulocytes/100 WBC (Bld) 0.300 % 0.0-0.9 [facility] Comment on above: IG% - Immature Granu locytes (promyelocytes, myelocytes and metamyelocytes) > 1% indicates that a LEFT SHIFT is Present. MCH (RBC) [Entitic mass] 30.0 pg 27.0-32.0 [facility] Nucleated RBC/100 WBC (Bld) [Ratio] 0 % 0-5 [facility] MCHC Auto (RBC) [Mass/Vol]Or dered By: Renard Burgos on 01-30-2023 MCHC (RBC) [Mass/Vol] 32.8 g/dL 32-36 [facility] Mucus LM Ql (Urine sed)Order ed By: Renard Burgos on 01-30-2023 Mucus Ql (Urine sed) 0 SEEN /hpf [facility] Nitrite Test strip Ql (U)Ord ered By: Renard Burgos on 01-30-2023 Nitrite Ql (U) Negative Negative [facility] No Panel InformationOrdered By: Renard Burgos on 01-30-2023 Prostate Specific Antigen Screen 4.18 ng/mL 0.00-4.00 [facility] Comment on above: This test was perfor med using the TPSA assay method for the[facility]. Values obtained with differentassay methods cannot be used interchangably.When changing PSA assays in the course of monitoring apatient, additional sequential testing should be carriedout to confirm baseline values. Platelets bldOrdered By: Lyubov Burgos on 01-30-2023 Platelets (Bld) [#/Vol] 205 10*3/uL 150-450 [facility] Protein Test strip Ql (U)Ord ered By: Renard Burgos on 01-30-2023 Protein Ql (U) Negative Negative [facility] Squamous epithelial cells de tection in urine sediment by light microscopyOrdered By: Renard Burgos on 01-30-2023 Epithelial cells.squamous LM Ql (Urine sed) 0-5 SEEN /hpf 0-5 [facility] Urine blood detectionOrdered By: Renard Burgos on 01-30-2023 RBC Ql (U) Negative Negative [facility] RBC Ql (U) 0 SEEN /hpf 0-5 [facility] Urine clarityOrdered By: Lyubov Burgos on 01-30-2023 Clarity (U) Clear Clear [facility] Urine color determinationOrd ered By: Renard Burgos on 01-30-2023 Color (U) Yellow Yellow [facility] Urine glucose detectionOrder ed By: Renard Burgos on 01-30-2023 Glucose Ql (U) Normal mg/dl Normal [facility] Urine leukocyte esterase det ection by dipstickOrdered By: Renard Burgos on 01-30-2023 Leukocyte esterase Test strip Ql (U) Negative Negative [facility] Urine pHOrdered By: Renard ocampo on 01-30-2023 pH (U) 8.0 [pH] 5.0 - 8.0 [facility] Urine sediment bacteria coun t by microscopy (number/high power field)Ordered By: Renard Burgos on 01-30-2023 Bacteria LM.HPF (Urine sed) [#/Area] 0 /[HPF] None Seen [facility] Urine specific gravity measu rementOrdered By: Renard Burgos on 01-30-2023 Specific gravity (U) [Rel density] 1.010 1.002-1.030 [facility] Urobilinogen Auto test strip Ql (U)Ordered By: Renard Burgos on 01-30-2023 Urobilinogen Ql (U) Normal mg/dl Normal [facility] Absolute lymphocyte countOrd ered By: Renard Burgos on 01-23-2023 Lymphocytes Auto (Unsp spec) [#/Vol] 2.32 10*3/uL 0.83-4.51 [facility] Basophil percentageOrdered B y: Renard Burgos on 01-23-2023 Basophils/100 WBC (Bld) 0.6 % 0-1 [facility] Eosinophils/100 WBC (Bld) 0.4 % 0-5 [facility] Neutrophils (Bld) [#/Vol] 5.3 10*3/uL 2.0-7.7 [facility] Neutrophils/100 WBC (Bld) 62.7 % 47-70 [facility] WBC (Bld) [#/Vol] 8.4 10*3/uL 4.4-11.0 [facility] Blood erythrocytes count (nu mber/volume)Ordered By: Renard Burgos on 01-23-2023 RBC (Bld) [#/Vol] 4.49 10*6/uL 4.6-6.2 [facility] Blood hemoglobin measurement (mass/volume)Ordered By: Renard Burgos on 01-23-2023 Hemoglobin (Bld) [Mass/Vol] 13.6 g/dL 13.0-16.5 [facility] Blood lymphocytes/100 leukoc ytesOrdered By: Renard Burgos on 01-23-2023 Lymphocytes/100 WBC (Bld) 27.5 % 19-41 [facility] Blood monocytes/100 leukocyt esOrdered By: Renard Burgos on 01-23-2023 Monocytes/100 WBC (Bld) 8.2 % 0-10 W [facility] Blood platelet mean volumeOr dered By: Renard Burgos on 01-23-2023 Platelet mean volume (Bld) [Entitic vol] 10.9 fL 6.2-12.0 [facility] Determination of erythrocyte mean corpuscular volume (MCV)Ordered By: Renard Burgos on 01-23-2023 MCV (RBC) [Entitic vol] 93.1 fL 80-94 W [facility] Hematocrit Auto (Bld) [Volum e fraction]Ordered By: Renard Burgos on 01-23-2023 Hematocrit (Bld) [Volume fraction] 41.8 % 40-54 [facility] Laboratory - Hematology and Cell countsOrdered By: Renard Burgos on 01-23-2023 Erythrocyte distribution width (RBC) [Entitic vol] 42.7 fL 35.1-43.9 [facility] Erythrocyte distribution width (RBC) [Ratio] 12.6 % 11.6-14.6 [facility] Immature granulocytes/100 WBC (Bld) 0.600 % 0.0-0.9 [facility] Comment on above: IG% - Immature Granu locytes (promyelocytes, myelocytes and metamyelocytes) > 1% indicates that a LEFT SHIFT is Present. MCH (RBC) [Entitic mass] 30.3 pg 27.0-32.0 [facility] Nucleated RBC/100 WBC (Bld) [Ratio] 0 % 0-5 [facility] MCHC Auto (RBC) [Mass/Vol]Or dered By: Renard Burgos on 01-23-2023 MCHC (RBC) [Mass/Vol] 32.5 g/dL 32-36 [facility] Platelets bldOrdered By: Lyubov Burgos on 01-23-2023 Platelets (Bld) [#/Vol] 220 10*3/uL 150-450 [facility] Absolute lymphocyte countOrd ered By: Renard Burgos on 01-16-2023 Lymphocytes Auto (Unsp spec) [#/Vol] 1.80 10*3/uL 0.83-4.51 [facility] Basophil percentageOrdered B y: Renard Burgos on 01-16-2023 Basophils/100 WBC (Bld) 0.4 % 0-1 W [facility] Eosinophils/100 WBC (Bld) 0.4 % 0-5 [facility] Neutrophils (Bld) [#/Vol] 7.2 10*3/uL 2.0-7.7 [facility] Neutrophils/100 WBC (Bld) 73.5 % 47-70 [facility] WBC (Bld) [#/Vol] 9.8 10*3/uL 4.4-11.0 [facility] Blood erythrocytes count (nu mber/volume)Ordered By: Renard Burgos on 01-16-2023 RBC (Bld) [#/Vol] 4.77 10*6/uL 4.6-6.2 [facility] Blood hemoglobin measurement (mass/volume)Ordered By: Renard Burgos on 01-16-2023 Hemoglobin (Bld) [Mass/Vol] 14.1 g/dL 13.0-16.5 [facility] Blood lymphocytes/100 leukoc ytesOrdered By: Renard Burgos on 01-16-2023 Lymphocytes/100 WBC (Bld) 18.4 % 19-41 [facility] Blood monocytes/100 leukocyt esOrdered By: Renard Burgos on 01-16-2023 Monocytes/100 WBC (Bld) 6.9 % 0-10 W [facility] Blood platelet mean volumeOr dered By: Renard Burgos on 01-16-2023 Platelet mean volume (Bld) [Entitic vol] 10.6 fL 6.2-12.0 [facility] Determination of erythrocyte mean corpuscular volume (MCV)Ordered By: Renard Burgos on 01-16-2023 MCV (RBC) [Entitic vol] 92.5 fL 80-94 W [facility] Hematocrit Auto (Bld) [Volum e fraction]Ordered By: Renard Burgos on 01-16-2023 Hematocrit (Bld) [Volume fraction] 44.1 % 40-54 [facility] Laboratory - Hematology and Cell countsOrdered By: Renard uBrgos on 01-16-2023 Erythrocyte distribution width (RBC) [Entitic vol] 41.8 fL 35.1-43.9 [facility] Erythrocyte distribution width (RBC) [Ratio] 12.4 % 11.6-14.6 [facility] Immature granulocytes/100 WBC (Bld) 0.400 % 0.0-0.9 [facility] Comment on above: IG% - Immature Granu locytes (promyelocytes, myelocytes and metamyelocytes) > 1% indicates that a LEFT SHIFT is Present. MCH (RBC) [Entitic mass] 29.6 pg 27.0-32.0 [facility] Nucleated RBC/100 WBC (Bld) [Ratio] 0 % 0-5 [facility] MCHC Auto (RBC) [Mass/Vol]Or dered By: Renard Burgos on 01-16-2023 MCHC (RBC) [Mass/Vol] 32.0 g/dL 32-36 [facility] Platelets bldOrdered By: Lyubov Burgos on 01-16-2023 Platelets (Bld) [#/Vol] 221 10*3/uL 150-450 [facility] Absolute lymphocyte countOrd ered By: Renard Burgos on 01-09-2023 Lymphocytes Auto (Unsp spec) [#/Vol] 2.41 10*3/uL 0.83-4.51 [facility] Basophil percentageOrdered B y: Renard Burgos on 01-09-2023 Basophils/100 WBC (Bld) 0.7 % 0-1 W [facility] Eosinophils/100 WBC (Bld) 0.8 % 0-5 [facility] Neutrophils (Bld) [#/Vol] 5.4 10*3/uL 2.0-7.7 [facility] Neutrophils/100 WBC (Bld) 60.5 % 47-70 [facility] WBC (Bld) [#/Vol] 8.9 10*3/uL 4.4-11.0 [facility] Blood erythrocytes count (nu mber/volume)Ordered By: Renard Burgos on 01-09-2023 RBC (Bld) [#/Vol] 4.56 10*6/uL 4.6-6.2 [facility] Blood hemoglobin measurement (mass/volume)Ordered By: Renard Burgos on 01-09-2023 Hemoglobin (Bld) [Mass/Vol] 13.8 g/dL 13.0-16.5 [facility] Blood lymphocytes/100 leukoc ytesOrdered By: Renard Burgos on 01-09-2023 Lymphocytes/100 WBC (Bld) 27.0 % 19-41 [facility] Blood monocytes/100 leukocyt esOrdered By: Renard Burgos on 01-09-2023 Monocytes/100 WBC (Bld) 10.7 % 0-10 W [facility] Blood platelet mean volumeOr dered By: Renard Burgos on 01-09-2023 Platelet mean volume (Bld) [Entitic vol] 10.8 fL 6.2-12.0 [facility] Determination of erythrocyte mean corpuscular volume (MCV)Ordered By: Renard Burgos on 01-09-2023 MCV (RBC) [Entitic vol] 92.5 fL 80-94 W [facility] Hematocrit Auto (Bld) [Volum e fraction]Ordered By: Renard Burgos on 01-09-2023 Hematocrit (Bld) [Volume fraction] 42.2 % 40-54 [facility] Laboratory - Hematology and Cell countsOrdered By: Renard Burgos on 01-09-2023 Erythrocyte distribution width (RBC) [Entitic vol] 42.7 fL 35.1-43.9 [facility] Erythrocyte distribution width (RBC) [Ratio] 12.5 % 11.6-14.6 [facility] Immature granulocytes/100 WBC (Bld) 0.300 % 0.0-0.9 [facility] Comment on above: IG% - Immature Granu locytes (promyelocytes, myelocytes and metamyelocytes) > 1% indicates that a LEFT SHIFT is Present. MCH (RBC) [Entitic mass] 30.3 pg 27.0-32.0 [facility] Nucleated RBC/100 WBC (Bld) [Ratio] 0 % 0-5 [facility] MCHC Auto (RBC) [Mass/Vol]Or dered By: Renard Burgos on 01-09-2023 MCHC (RBC) [Mass/Vol] 32.7 g/dL 32-36 [facility] Platelets bldOrdered By: [facility] lizy Burgos on 01-09-2023 Platelets (Bld) [#/Vol] 209 10*3/uL 150-450 [facility] Absolute lymphocyte countOrd ered By: Renard Burgos on 01-03-2023 Lymphocytes Auto (Unsp spec) [#/Vol] 2.18 10*3/uL 0.83-4.51 [facility] Basophil percentageOrdered B y: Renard Burgos on 01-03-2023 Basophils/100 WBC (Bld) 0.6 % 0-1 W [facility] Eosinophils/100 WBC (Bld) 0.5 % 0-5 [facility] Neutrophils (Bld) [#/Vol] 5.4 10*3/uL 2.0-7.7 [facility] Neutrophils/100 WBC (Bld) 64.2 % 47-70 [facility] WBC (Bld) [#/Vol] 8.4 10*3/uL 4.4-11.0 [facility] Blood erythrocytes count (nu mber/volume)Ordered By: Renard Burgos on 01-03-2023 RBC (Bld) [#/Vol] 4.59 10*6/uL 4.6-6.2 [facility] Blood hemoglobin measurement (mass/volume)Ordered By: Renard Burgos on 01-03-2023 Hemoglobin (Bld) [Mass/Vol] 13.9 g/dL 13.0-16.5 [facility] Blood lymphocytes/100 leukoc ytesOrdered By: Renard Burgos on 01-03-2023 Lymphocytes/100 WBC (Bld) 25.9 % 19-41 [facility] Blood monocytes/100 leukocyt esOrdered By: Renard Burgos on 01-03-2023 Monocytes/100 WBC (Bld) 8.3 % 0-10 W [facility] Blood platelet mean volumeOr dered By: Renard Burgos on 01-03-2023 Platelet mean volume (Bld) [Entitic vol] 11.0 fL 6.2-12.0 [facility] Determination of erythrocyte mean corpuscular volume (MCV)Ordered By: Renard Burgos on 01-03-2023 MCV (RBC) [Entitic vol] 92.8 fL 80-94 W [facility] Hematocrit Auto (Bld) [Volum e fraction]Ordered By: Renard Burgos on 01-03-2023 Hematocrit (Bld) [Volume fraction] 42.6 % 40-54 [facility] Laboratory - Hematology and Cell countsOrdered By: Renard Burgos on 01-03-2023 Erythrocyte distribution width (RBC) [Entitic vol] 42.5 fL 35.1-43.9 [facility] Erythrocyte distribution width (RBC) [Ratio] 12.6 % 11.6-14.6 [facility] Immature granulocytes/100 WBC (Bld) 0.500 % 0.0-0.9 [facility] Comment on above: IG% - Immature Granu locytes (promyelocytes, myelocytes and metamyelocytes) > 1% indicates that a LEFT SHIFT is Present. MCH (RBC) [Entitic mass] 30.3 pg 27.0-32.0 [facility] Nucleated RBC/100 WBC (Bld) [Ratio] 0 % 0-5 [facility] MCHC Auto (RBC) [Mass/Vol]Or dered By: Renard Burgos on 01-03-2023 MCHC (RBC) [Mass/Vol] 32.6 g/dL 32-36 [facility] No Panel InformationOrdered By: Renard Burgos on 01-03-2023 Prostate Specific Antigen Screen 3.37 ng/mL 0.00-4.00 [facility] Comment on above: This test was perfor med using the TPSA assay method for the[employer]nron chemistry system. Values obtained with differentassay methods cannot be used interchangably.When changing PSA assays in the course of monitoring apatient, additional sequential testing should be carriedout to confirm baseline values. Platelets bldOrdered By: Lyubov lizy Loretta on 01-03-2023 Platelets (Bld) [#/Vol] 200 10*3/uL 150-450 [facility] Absolute lymphocyte countOrd ered By: Renard Burgos on 12-26-2022 Lymphocytes Auto (Unsp spec) [#/Vol] 1.80 10*3/uL 0.83-4.51 [facility] Basophil percentageOrdered B y: Renard Burgos on 12-26-2022 Basophils/100 WBC (Bld) 0.4 % 0-1 W [facility] Eosinophils/100 WBC (Bld) 0.6 % 0-5 [facility] Neutrophils (Bld) [#/Vol] 6.2 10*3/uL 2.0-7.7 [facility] Neutrophils/100 WBC (Bld) 69.8 % 47-70 [facility] WBC (Bld) [#/Vol] 8.9 10*3/uL 4.4-11.0 [facility] Blood erythrocytes count (nu mber/volume)Ordered By: Renard Burgos on 12-26-2022 RBC (Bld) [#/Vol] 4.58 10*6/uL 4.6-6.2 [facility] Blood hemoglobin measurement (mass/volume)Ordered By: Renard Burgos on 12-26-2022 Hemoglobin (Bld) [Mass/Vol] 14.0 g/dL 13.0-16.5 [facility] Blood lymphocytes/100 leukoc ytesOrdered By: Renard Burgos on 12-26-2022 Lymphocytes/100 WBC (Bld) 20.2 % 19-41 [facility] Blood monocytes/100 leukocyt esOrdered By: Renard Burgos on 12-26-2022 Monocytes/100 WBC (Bld) 8.6 % 0-10 W [facility] Blood platelet mean volumeOr dered By: Renard Burgos on 12-26-2022 Platelet mean volume (Bld) [Entitic vol] 10.8 fL 6.2-12.0 [facility] Determination of erythrocyte mean corpuscular volume (MCV)Ordered By: Renard Burgos on 12-26-2022 MCV (RBC) [Entitic vol] 93.2 fL 80-94 W [facility] Hematocrit Auto (Bld) [Volum e fraction]Ordered By: Renard Burgos on 12-26-2022 Hematocrit (Bld) [Volume fraction] 42.7 % 40-54 [facility] Laboratory - Hematology and Cell countsOrdered By: Renard Burgos on 12-26-2022 Erythrocyte distribution width (RBC) [Entitic vol] 42.5 fL 35.1-43.9 [facility] Erythrocyte distribution width (RBC) [Ratio] 12.5 % 11.6-14.6 [facility] Immature granulocytes/100 WBC (Bld) 0.400 % 0.0-0.9 [facility] Comment on above: IG% - Immature Granu locytes (promyelocytes, myelocytes and metamyelocytes) > 1% indicates that a LEFT SHIFT is Present. MCH (RBC) [Entitic mass] 30.6 pg 27.0-32.0 [facility] Nucleated RBC/100 WBC (Bld) [Ratio] 0 % 0-5 [facility] MCHC Auto (RBC) [Mass/Vol]Or dered By: Renard Burgos on 12-26-2022 MCHC (RBC) [Mass/Vol] 32.8 g/dL 32-36 [facility] Platelets bldOrdered By: Lyubov Burgos on 12-26-2022 Platelets (Bld) [#/Vol] 200 10*3/uL 150-450 [facility] Absolute lymphocyte countOrd ered By: Renard Burgos on 12-19-2022 Lymphocytes Auto (Unsp spec) [#/Vol] 2.24 10*3/uL 0.83-4.51 [facility] Basophil percentageOrdered B y: Renard Burgos on 12-19-2022 Basophils/100 WBC (Bld) 0.3 % 0-1 W [facility] Eosinophils/100 WBC (Bld) 0.8 % 0-5 [facility] Neutrophils (Bld) [#/Vol] 5.7 10*3/uL 2.0-7.7 [facility] Neutrophils/100 WBC (Bld) 64.1 % 47-70 [facility] WBC (Bld) [#/Vol] 8.9 10*3/uL 4.4-11.0 [facility] Blood erythrocytes count (nu mber/volume)Ordered By: Renard Burgos on 12-19-2022 RBC (Bld) [#/Vol] 4.44 10*6/uL 4.6-6.2 [facility] Blood hemoglobin measurement (mass/volume)Ordered By: Renard Burgos on 12-19-2022 Hemoglobin (Bld) [Mass/Vol] 13.5 g/dL 13.0-16.5 [facility] Blood lymphocytes/100 leukoc ytesOrdered By: Renard Burgos on 12-19-2022 Lymphocytes/100 WBC (Bld) 25.1 % 19-41 [facility] Blood monocytes/100 leukocyt esOrdered By: Renard Burgos on 12-19-2022 Monocytes/100 WBC (Bld) 9.4 % 0-10 [facility] Blood platelet mean volumeOr dered By: Renard Burgos on 12-19-2022 Platelet mean volume (Bld) [Entitic vol] 11.0 fL 6.2-12.0 [facility] Determination of erythrocyte mean corpuscular volume (MCV)Ordered By: Renard Burgos on 12-19-2022 MCV (RBC) [Entitic vol] 92.8 fL 80-94 [facility] Hematocrit Auto (Bld) [Volum e fraction]Ordered By: Renard Burgos on 12-19-2022 Hematocrit (Bld) [Volume fraction] 41.2 % 40-54 [facility] Laboratory - Hematology and Cell countsOrdered By: Renard Burgos on 12-19-2022 Erythrocyte distribution width (RBC) [Entitic vol] 43.2 fL 35.1-43.9 [facility] Erythrocyte distribution width (RBC) [Ratio] 12.7 % 11.6-14.6 [facility] Immature granulocytes/100 WBC (Bld) 0.300 % 0.0-0.9 [facility] Comment on above: IG% - Immature Granu locytes (promyelocytes, myelocytes and metamyelocytes) > 1% indicates that a LEFT SHIFT is Present. MCH (RBC) [Entitic mass] 30.4 pg 27.0-32.0 [facility] Nucleated RBC/100 WBC (Bld) [Ratio] 0 % 0-5 [facility] MCHC Auto (RBC) [Mass/Vol]Or dered By: Renard Burgos on 12-19-2022 MCHC (RBC) [Mass/Vol] 32.8 g/dL 32-36 [facility] Platelets bldOrdered By: Lyubov Burgos on 12-19-2022 Platelets (Bld) [#/Vol] 194 10*3/uL 150-450 [facility] Absolute lymphocyte countOrd ered By: Renard Burgos on 12-12-2022 Lymphocytes Auto (Unsp spec) [#/Vol] 2.33 10*3/uL 0.83-4.51 [facility] Basophil percentageOrdered B y: Renard Burgos on 12-12-2022 Basophils/100 WBC (Bld) 0.6 % 0-1 W [facility] Eosinophils/100 WBC (Bld) 0.9 % 0-5 [facility] Neutrophils (Bld) [#/Vol] 5.8 10*3/uL 2.0-7.7 [facility] Neutrophils/100 WBC (Bld) 63.5 % 47-70 [facility] WBC (Bld) [#/Vol] 9.1 10*3/uL 4.4-11.0 [facility] Blood erythrocytes count (nu mber/volume)Ordered By: Renard Burgos on 12-12-2022 RBC (Bld) [#/Vol] 4.52 10*6/uL 4.6-6.2 [facility] Blood hemoglobin measurement (mass/volume)Ordered By: Renard Burgos on 12-12-2022 Hemoglobin (Bld) [Mass/Vol] 13.9 g/dL 13.0-16.5 [facility] Blood lymphocytes/100 leukoc ytesOrdered By: Renard Burgos on 12-12-2022 Lymphocytes/100 WBC (Bld) 25.6 % 19-41 [facility] Blood monocytes/100 leukocyt esOrdered By: Renard Burgos on 12-12-2022 Monocytes/100 WBC (Bld) 9.1 % 0-10 [facility] Blood platelet mean volumeOr dered By: Renard Burgos on 12-12-2022 Platelet mean volume (Bld) [Entitic vol] 10.9 fL 6.2-12.0 [facility] Determination of erythrocyte mean corpuscular volume (MCV)Ordered By: Renard Burgos on 12-12-2022 MCV (RBC) [Entitic vol] 94.2 fL 80-94 [facility] Hematocrit Auto (Bld) [Volum e fraction]Ordered By: Renard Burgos on 12-12-2022 Hematocrit (Bld) [Volume fraction] 42.6 % 40-54 [facility] Laboratory - Hematology and Cell countsOrdered By: Renard Burgos on 12-12-2022 Erythrocyte distribution width (RBC) [Entitic vol] 44.3 fL 35.1-43.9 [facility] Erythrocyte distribution width (RBC) [Ratio] 12.8 % 11.6-14.6 [facility] Immature granulocytes/100 WBC (Bld) 0.300 % 0.0-0.9 [facility] Comment on above: IG% - Immature Granu locytes (promyelocytes, myelocytes and metamyelocytes) > 1% indicates that a LEFT SHIFT is Present. MCH (RBC) [Entitic mass] 30.8 pg 27.0-32.0 [facility] Nucleated RBC/100 WBC (Bld) [Ratio] 0 % 0-5 [facility] MCHC Auto (RBC) [Mass/Vol]Or dered By: Renard Burgos on 12-12-2022 MCHC (RBC) [Mass/Vol] 32.6 g/dL 32-36 [facility] Platelets bldOrdered By: Lyubov Burgos on 12-12-2022 Platelets (Bld) [#/Vol] 211 10*3/uL 150-450 [facility] Absolute lymphocyte countOrd ered By: Renard Burgos on 12-05-2022 Lymphocytes Auto (Unsp spec) [#/Vol] 1.94 10*3/uL 0.83-4.51 [facility] Basophil percentageOrdered B y: Renard Burgos on 12-05-2022 Basophils/100 WBC (Bld) 0.4 % 0-1 [facility] Eosinophils/100 WBC (Bld) 0.9 % 0-5 [facility] Neutrophils (Bld) [#/Vol] 4.1 10*3/uL 2.0-7.7 [facility] Neutrophils/100 WBC (Bld) 61.2 % 47-70 [facility] WBC (Bld) [#/Vol] 6.7 10*3/uL 4.4-11.0 [facility] Blood erythrocytes count (nu mber/volume)Ordered By: Renard Burgos on 12-05-2022 RBC (Bld) [#/Vol] 4.39 10*6/uL 4.6-6.2 [facility] Blood hemoglobin measurement (mass/volume)Ordered By: Renard Burgos on 12-05-2022 Hemoglobin (Bld) [Mass/Vol] 13.3 g/dL 13.0-16.5 [facility] Blood lymphocytes/100 leukoc ytesOrdered By: Renard Burgos on 12-05-2022 Lymphocytes/100 WBC (Bld) 28.8 % 19-41 [facility] Blood monocytes/100 leukocyt esOrdered By: Renard Burgos on 12-05-2022 Monocytes/100 WBC (Bld) 8.3 % 0-10 [facility] Blood platelet mean volumeOr dered By: Renard Burgos on 12-05-2022 Platelet mean volume (Bld) [Entitic vol] 10.8 fL 6.2-12.0 [facility] Determination of erythrocyte mean corpuscular volume (MCV)Ordered By: Renard Burgos on 12-05-2022 MCV (RBC) [Entitic vol] 90.7 fL 80-94 [facility] Hematocrit Auto (Bld) [Volum e fraction]Ordered By: Renard Burgos on 12-05-2022 Hematocrit (Bld) [Volume fraction] 39.8 % 40-54 [facility] Laboratory - Hematology and Cell countsOrdered By: Renard Burgos on 12-05-2022 Erythrocyte distribution width (RBC) [Entitic vol] 41.8 fL 35.1-43.9 [facility] Erythrocyte distribution width (RBC) [Ratio] 12.6 % 11.6-14.6 [facility] Immature granulocytes/100 WBC (Bld) 0.400 % 0.0-0.9 [facility] Comment on above: IG% - Immature Granu locytes (promyelocytes, myelocytes and metamyelocytes) > 1% indicates that a LEFT SHIFT is Present. MCH (RBC) [Entitic mass] 30.3 pg 27.0-32.0 [facility] Nucleated RBC/100 WBC (Bld) [Ratio] 0 % 0-5 [facility] MCHC Auto (RBC) [Mass/Vol]Or dered By: Renard Burgos on 12-05-2022 MCHC (RBC) [Mass/Vol] 33.4 g/dL 32-36 [facility] Platelets bldOrdered By: Pet er Loretta on 12-05-2022 Platelets (Bld) [#/Vol] 208 10*3/uL 150-450 [facility] Absolute lymphocyte countOrd ered By: Renard Burgos on 11-28-2022 Lymphocytes Auto (Unsp spec) [#/Vol] 2.07 10*3/uL 0.83-4.51 [facility] Basophil percentageOrdered B y: Renard Burgos on 11-28-2022 Basophils/100 WBC (Bld) 0.4 % 0-1 [facility] Eosinophils/100 WBC (Bld) 0.6 % 0-5 [facility] Neutrophils (Bld) [#/Vol] 5.1 10*3/uL 2.0-7.7 [facility] Neutrophils/100 WBC (Bld) 64.6 % 47-70 [facility] WBC (Bld) [#/Vol] 7.9 10*3/uL 4.4-11.0 [facility] Blood erythrocytes count (nu mber/volume)Ordered By: Renard Burgos on 11-28-2022 RBC (Bld) [#/Vol] 4.54 10*6/uL 4.6-6.2 [facility] Blood hemoglobin measurement (mass/volume)Ordered By: Renard Burgos on 11-28-2022 Hemoglobin (Bld) [Mass/Vol] 13.7 g/dL 13.0-16.5 [facility] Blood lymphocytes/100 leukoc ytesOrdered By: Renard Burgos on 11-28-2022 Lymphocytes/100 WBC (Bld) 26.2 % 19-41 [facility] Blood monocytes/100 leukocyt esOrdered By: Renard Burgos on 11-28-2022 Monocytes/100 WBC (Bld) 7.7 % 0-10 [facility] Blood platelet mean volumeOr dered By: Renard Burgos on 11-28-2022 Platelet mean volume (Bld) [Entitic vol] 10.6 fL 6.2-12.0 [facility] Determination of erythrocyte mean corpuscular volume (MCV)Ordered By: Renard Burgos on 11-28-2022 MCV (RBC) [Entitic vol] 93.6 fL 80-94 [facility] Hematocrit Auto (Bld) [Volum e fraction]Ordered By: Renard Burgos on 11-28-2022 Hematocrit (Bld) [Volume fraction] 42.5 % 40-54 [facility] Laboratory - Hematology and Cell countsOrdered By: Renard Burgos on 11-28-2022 Erythrocyte distribution width (RBC) [Entitic vol] 43.5 fL 35.1-43.9 [facility] Erythrocyte distribution width (RBC) [Ratio] 12.7 % 11.6-14.6 [facility] Immature granulocytes/100 WBC (Bld) 0.500 % 0.0-0.9 [facility] Comment on above: IG% - Immature Granu locytes (promyelocytes, myelocytes and metamyelocytes) > 1% indicates that a LEFT SHIFT is Present. MCH (RBC) [Entitic mass] 30.2 pg 27.0-32.0 [facility] Nucleated RBC/100 WBC (Bld) [Ratio] 0 % 0-5 [facility] MCHC Auto (RBC) [Mass/Vol]Or dered By: Renard Burgos on 11-28-2022 MCHC (RBC) [Mass/Vol] 32.2 g/dL 32-36 [facility] Platelets bldOrdered By: Lyubov Burgos on 11-28-2022 Platelets (Bld) [#/Vol] 201 10*3/uL 150-450 [facility] Absolute lymphocyte countOrd ered By: Renard Burgos on 11-21-2022 Lymphocytes Auto (Unsp spec) [#/Vol] 2.32 10*3/uL 0.83-4.51 [facility] Basophil percentageOrdered B y: Renard Burgos on 11-21-2022 Basophils/100 WBC (Bld) 0.6 % 0-1 [facility] Eosinophils/100 WBC (Bld) 0.7 % 0-5 [facility] Neutrophils (Bld) [#/Vol] 5.0 10*3/uL 2.0-7.7 [facility] Neutrophils/100 WBC (Bld) 60.6 % 47-70 [facility] WBC (Bld) [#/Vol] 8.2 10*3/uL 4.4-11.0 [facility] Blood erythrocytes count (nu mber/volume)Ordered By: Renard Burgos on 11-21-2022 RBC (Bld) [#/Vol] 4.71 10*6/uL 4.6-6.2 [facility] Blood hemoglobin measurement (mass/volume)Ordered By: Renard Burgos on 11-21-2022 Hemoglobin (Bld) [Mass/Vol] 14.3 g/dL 13.0-16.5 [facility] Blood lymphocytes/100 leukoc ytesOrdered By: Renard Burgos on 11-21-2022 Lymphocytes/100 WBC (Bld) 28.2 % 19-41 [facility] Blood monocytes/100 leukocyt esOrdered By: Renard Burgos on 11-21-2022 Monocytes/100 WBC (Bld) 9.2 % 0-10 [facility] Blood platelet mean volumeOr dered By: Renard Burgos on 11-21-2022 Platelet mean volume (Bld) [Entitic vol] 10.4 fL 6.2-12.0 [facility] Determination of erythrocyte mean corpuscular volume (MCV)Ordered By: Renard Burgos on 11-21-2022 MCV (RBC) [Entitic vol] 91.9 fL 80-94 [facility] Hematocrit Auto (Bld) [Volum e fraction]Ordered By: Renard Burgos on 11-21-2022 Hematocrit (Bld) [Volume fraction] 43.3 % 40-54 [facility] Laboratory - Hematology and Cell countsOrdered By: Renard Burgos on 11-21-2022 Erythrocyte distribution width (RBC) [Entitic vol] 43.1 fL 35.1-43.9 [facility] Erythrocyte distribution width (RBC) [Ratio] 12.8 % 11.6-14.6 [facility] Immature granulocytes/100 WBC (Bld) 0.700 % 0.0-0.9 [facility] Comment on above: IG% - Immature Granu locytes (promyelocytes, myelocytes and metamyelocytes) > 1% indicates that a LEFT SHIFT is Present. MCH (RBC) [Entitic mass] 30.4 pg 27.0-32.0 [facility] Nucleated RBC/100 WBC (Bld) [Ratio] 0 % 0-5 [facility] MCHC Auto (RBC) [Mass/Vol]Or dered By: Renard Burgos on 11-21-2022 MCHC (RBC) [Mass/Vol] 33.0 g/dL 32-36 [facility] Platelets bldOrdered By: Lyubov Burgos on 11-21-2022 Platelets (Bld) [#/Vol] 219 10*3/uL 150-450 [facility] Absolute lymphocyte countOrd ered By: Renard Burgos on 11-14-2022 Lymphocytes Auto (Unsp spec) [#/Vol] 1.82 10*3/uL 0.83-4.51 [facility] Basophil percentageOrdered B y: Renard Burgos on 11-14-2022 Basophils/100 WBC (Bld) 0.4 % 0-1 [facility] Chloride [Moles/Vol] 107 mmol/L 98-107 [facility] Eosinophils/100 WBC (Bld) 0.4 % 0-5 [facility] Glucose [Mass/Vol] 121 mg/dL 74-106 [facility] Comment on above: Fasting Glucose resu lt from 100 to 125 mg/dL suggests IMPAIRED HOMEOSTASIS per A.D.A. criteria. Neutrophils (Bld) [#/Vol] 4.7 10*3/uL 2.0-7.7 [facility] Neutrophils/100 WBC (Bld) 66.6 % 47-70 [facility] Potassium [Moles/Vol] 3.7 mmol/L 3.5-5.1 [facility] Sodium [Moles/Vol] 141 mmol/L 136-145 [facility] WBC (Bld) [#/Vol] 7.1 10*3/uL 4.4-11.0 [facility] Blood erythrocytes count (nu mber/volume)Ordered By: Renard Burgos on 11-14-2022 RBC (Bld) [#/Vol] 4.35 10*6/uL 4.6-6.2 [facility] Blood hemoglobin measurement (mass/volume)Ordered By: Renard Burgos on 11-14-2022 Hemoglobin (Bld) [Mass/Vol] 13.6 g/dL 13.0-16.5 [facility] Blood lymphocytes/100 leukoc ytesOrdered By: Renard Burgos on 11-14-2022 Lymphocytes/100 WBC (Bld) 25.6 % 19-41 [facility] Blood monocytes/100 leukocyt esOrdered By: Renard Burgos on 11-14-2022 Monocytes/100 WBC (Bld) 6.6 % 0-10 [facility] Blood platelet mean volumeOr dered By: Renard Burgos on 11-14-2022 Platelet mean volume (Bld) [Entitic vol] 10.9 fL 6.2-12.0 [facility] Determination of erythrocyte mean corpuscular volume (MCV)Ordered By: Renard Burgos on 11-14-2022 MCV (RBC) [Entitic vol] 93.3 fL 80-94 [facility] Hematocrit Auto (Bld) [Volum e fraction]Ordered By: Renard Burgos on 11-14-2022 Hematocrit (Bld) [Volume fraction] 40.6 % 40-54 [facility] Laboratory - Chemistry and C hemistry - challengeOrdered By: Renard Burgos on 11-14-2022 CO2 [Moles/Vol] 31.0 mmol/L 21.0-32.0 [facility] Urea nitrogen/Creatinine [Mass ratio] 26.0 mg/mg 10-20 [facility] Laboratory - Hematology and Cell countsOrdered By: Renard Burgos on 11-14-2022 Erythrocyte distribution width (RBC) [Entitic vol] 43.9 fL 35.1-43.9 [facility] Erythrocyte distribution width (RBC) [Ratio] 12.8 % 11.6-14.6 [facility] Immature granulocytes/100 WBC (Bld) 0.400 % 0.0-0.9 [facility] Comment on above: IG% - Immature Granu locytes (promyelocytes, myelocytes and metamyelocytes) > 1% indicates that a LEFT SHIFT is Present. MCH (RBC) [Entitic mass] 31.3 pg 27.0-32.0 [facility] Nucleated RBC/100 WBC (Bld) [Ratio] 0 % 0-5 [facility] MCHC Auto (RBC) [Mass/Vol]Or dered By: Renard Burgos on 11-14-2022 MCHC (RBC) [Mass/Vol] 33.5 g/dL 32-36 [facility] No Panel InformationOrdered By: Renard Burgos on 11-14-2022 Estimated GFR (MDRD) Amer 147 mL/min >60 [facility] Comment on above: GFR Calc Estimated GFR (MDRD) Non-Af Amer 122 mL/min >60 [facility] Comment on above: Non- GFR Calc Platelets bldOrdered By: Lyubov Burgos on 11-14-2022 Platelets (Bld) [#/Vol] 202 10*3/uL 150-450 [facility] Serum or plasma calcium gordy urement (mass/volume)Ordered By: Renard Burgos on 11-14-2022 Calcium [Mass/Vol] 8.2 mg/dL 8.5-10.1 [facility] Serum or plasma creatinine m easurement (mass/volume)Ordered By: Renard Burgos on 11-14-2022 Creatinine [Mass/Vol] 0.69 mg/dL 0.70-1.30 [facility] Comment on above: The validity of the calculated GFR & GFRAA in patients over 70 years has not been determined. Clinical correlation is essential. Serum or plasma urea nitroge n measurement (mass/volume)Ordered By: Renard Burgos on 11-14-2022 Urea nitrogen [Mass/Vol] 18 mg/dL 7-18 [facility] Thin prep Papanicolaou smear with manual screeningOrdered By: Renard Burgos on 11-14-2022 Thin prep Papanicolaou smear with manual screening 3 5-15 [facility] Absolute lymphocyte countOrd ered By: Renard Burgos on 11-07-2022 Lymphocytes Auto (Unsp spec) [#/Vol] 1.99 10*3/uL 0.83-4.51 [facility] Basophil percentageOrdered B y: Renard Burgos on 11-07-2022 Basophils/100 WBC (Bld) 0.8 % 0-1 [facility] Eosinophils/100 WBC (Bld) 0.5 % 0-5 [facility] Neutrophils (Bld) [#/Vol] 5.1 10*3/uL 2.0-7.7 [facility] Neutrophils/100 WBC (Bld) 64.0 % 47-70 [facility] WBC (Bld) [#/Vol] 8.0 10*3/uL 4.4-11.0 [facility] Blood erythrocytes count (nu mber/volume)Ordered By: Renard Burgos on 11-07-2022 RBC (Bld) [#/Vol] 4.45 10*6/uL 4.6-6.2 [facility] Blood hemoglobin measurement (mass/volume)Ordered By: Renard Burgos on 11-07-2022 Hemoglobin (Bld) [Mass/Vol] 13.7 g/dL 13.0-16.5 [facility] Blood lymphocytes/100 leukoc ytesOrdered By: Renard Burgos on 11-07-2022 Lymphocytes/100 WBC (Bld) 25.0 % 19-41 [facility] Blood monocytes/100 leukocyt esOrdered By: Renard Burgos on 11-07-2022 Monocytes/100 WBC (Bld) 9.4 % 0-10 [facility] Blood platelet mean volumeOr dered By: Renard Burgos on 11-07-2022 Platelet mean volume (Bld) [Entitic vol] 10.7 fL 6.2-12.0 [facility] Determination of erythrocyte mean corpuscular volume (MCV)Ordered By: Renard Burgos on 11-07-2022 MCV (RBC) [Entitic vol] 91.5 fL 80-94 [facility] Hematocrit Auto (Bld) [Volum e fraction]Ordered By: Renard Burgos on 11-07-2022 Hematocrit (Bld) [Volume fraction] 40.7 % 40-54 [facility] Laboratory - Hematology and Cell countsOrdered By: Renard Burgos on 11-07-2022 Erythrocyte distribution width (RBC) [Entitic vol] 42.4 fL 35.1-43.9 [facility] Erythrocyte distribution width (RBC) [Ratio] 12.8 % 11.6-14.6 [facility] Immature granulocytes/100 WBC (Bld) 0.300 % 0.0-0.9 [facility] Comment on above: IG% - Immature Granu locytes (promyelocytes, myelocytes and metamyelocytes) > 1% indicates that a LEFT SHIFT is Present. MCH (RBC) [Entitic mass] 30.8 pg 27.0-32.0 [facility] Nucleated RBC/100 WBC (Bld) [Ratio] 0 % 0-5 [facility] MCHC Auto (RBC) [Mass/Vol]Or dered By: Renard Burgos on 11-07-2022 MCHC (RBC) [Mass/Vol] 33.7 g/dL 32-36 [facility] Platelets bldOrdered By: Lyubov Burgos on 11-07-2022 Platelets (Bld) [#/Vol] 220 10*3/uL 150-450 [facility] Absolute lymphocyte countOrd ered By: Renard Burgos on 10-31-2022 Lymphocytes Auto (Unsp spec) [#/Vol] 1.97 10*3/uL 0.83-4.51 [facility] Basophil percentageOrdered B y: Renard Burgos on 10-31-2022 Basophils/100 WBC (Bld) 0.5 % 0-1 [facility] Eosinophils/100 WBC (Bld) 0.6 % 0-5 [facility] Neutrophils (Bld) [#/Vol] 6.7 10*3/uL 2.0-7.7 [facility] Neutrophils/100 WBC (Bld) 69.9 % 47-70 [facility] WBC (Bld) [#/Vol] 9.6 10*3/uL 4.4-11.0 [facility] Blood erythrocytes count (nu mber/volume)Ordered By: Renard Burgos on 10-31-2022 RBC (Bld) [#/Vol] 4.47 10*6/uL 4.6-6.2 [facility] Blood hemoglobin measurement (mass/volume)Ordered By: Renard Burgos on 10-31-2022 Hemoglobin (Bld) [Mass/Vol] 13.5 g/dL 13.0-16.5 [facility] Blood lymphocytes/100 leukoc ytesOrdered By: Renard Burgos on 10-31-2022 Lymphocytes/100 WBC (Bld) 20.5 % 19-41 [facility] Blood monocytes/100 leukocyt esOrdered By: Renard Burgos on 10-31-2022 Monocytes/100 WBC (Bld) 7.9 % 0-10 [facility] Blood platelet mean volumeOr dered By: Renard Burgos on 10-31-2022 Platelet mean volume (Bld) [Entitic vol] 11.1 fL 6.2-12.0 [facility] Determination of erythrocyte mean corpuscular volume (MCV)Ordered By: Renard Burgos on 10-31-2022 MCV (RBC) [Entitic vol] 92.4 fL 80-94 [facility] Hematocrit Auto (Bld) [Volum e fraction]Ordered By: Renard Burgos on 10-31-2022 Hematocrit (Bld) [Volume fraction] 41.3 % 40-54 [facility] Laboratory - Hematology and Cell countsOrdered By: Renard Burgos on 10-31-2022 Erythrocyte distribution width (RBC) [Entitic vol] 42.9 fL 35.1-43.9 [facility] Erythrocyte distribution width (RBC) [Ratio] 12.7 % 11.6-14.6 [facility] Immature granulocytes/100 WBC (Bld) 0.600 % 0.0-0.9 [facility] Comment on above: IG% - Immature Granu locytes (promyelocytes, myelocytes and metamyelocytes) > 1% indicates that a LEFT SHIFT is Present. MCH (RBC) [Entitic mass] 30.2 pg 27.0-32.0 [facility] Nucleated RBC/100 WBC (Bld) [Ratio] 0 % 0-5 [facility] MCHC Auto (RBC) [Mass/Vol]Or dered By: Renard Burgos on 10-31-2022 MCHC (RBC) [Mass/Vol] 32.7 g/dL 32-36 [facility] Platelets bldOrdered By: [facility] on 10-31-2022 Platelets (Bld) [#/Vol] 221 10*3/uL 150-450 [facility] Absolute lymphocyte countOrd ered By: Renard Burgos on 10-24-2022 Lymphocytes Auto (Unsp spec) [#/Vol] 1.96 10*3/uL 0.83-4.51 [facility] Basophil percentageOrdered B y: Renard Burgos on 10-24-2022 Basophils/100 WBC (Bld) 0.4 % 0-1 [facility] Eosinophils/100 WBC (Bld) 0.7 % 0-5 [facility] Neutrophils (Bld) [#/Vol] 4.5 10*3/uL 2.0-7.7 [facility] Neutrophils/100 WBC (Bld) 61.9 % 47-70 [facility] WBC (Bld) [#/Vol] 7.3 10*3/uL 4.4-11.0 [facility] Blood erythrocytes count (nu mber/volume)Ordered By: Renard Burgos on 10-24-2022 RBC (Bld) [#/Vol] 4.41 10*6/uL 4.6-6.2 [facility] Blood hemoglobin measurement (mass/volume)Ordered By: Renard Burgos on 10-24-2022 Hemoglobin (Bld) [Mass/Vol] 13.2 g/dL 13.0-16.5 [facility] Blood lymphocytes/100 leukoc ytesOrdered By: Renard Burgos on 10-24-2022 Lymphocytes/100 WBC (Bld) 27.0 % 19-41 [facility] Blood monocytes/100 leukocyt esOrdered By: Renard Burgos on 10-24-2022 Monocytes/100 WBC (Bld) 9.4 % 0-10 [facility] Blood platelet mean volumeOr dered By: Renard Burgos on 10-24-2022 Platelet mean volume (Bld) [Entitic vol] 10.9 fL 6.2-12.0 [facility] Determination of erythrocyte mean corpuscular volume (MCV)Ordered By: Renard Burgos on 10-24-2022 MCV (RBC) [Entitic vol] 92.1 fL 80-94 [facility] Hematocrit Auto (Bld) [Volum e fraction]Ordered By: Renard Burgos on 10-24-2022 Hematocrit (Bld) [Volume fraction] 40.6 % 40-54 [facility] Laboratory - Hematology and Cell countsOrdered By: Renard Burgos on 10-24-2022 Erythrocyte distribution width (RBC) [Entitic vol] 42.8 fL 35.1-43.9 [facility] Erythrocyte distribution width (RBC) [Ratio] 12.8 % 11.6-14.6 [facility] Immature granulocytes/100 WBC (Bld) 0.600 % 0.0-0.9 [facility] Comment on above: IG% - Immature Granu locytes (promyelocytes, myelocytes and metamyelocytes) > 1% indicates that a LEFT SHIFT is Present. MCH (RBC) [Entitic mass] 29.9 pg 27.0-32.0 [facility] Nucleated RBC/100 WBC (Bld) [Ratio] 0 % 0-5 [facility] MCHC Auto (RBC) [Mass/Vol]Or dered By: Renard Burgos on 10-24-2022 MCHC (RBC) [Mass/Vol] 32.5 g/dL 32-36 [facility] Platelets bldOrdered By: Lyubov Burgos on 10-24-2022 Platelets (Bld) [#/Vol] 213 10*3/uL 150-450 [facility] Absolute lymphocyte countOrd ered By: Renard Burgos on 10-17-2022 Lymphocytes Auto (Unsp spec) [#/Vol] 2.05 10*3/uL 0.83-4.51 [facility] Basophil percentageOrdered B y: Renard Burgos on 10-17-2022 Basophils/100 WBC (Bld) 0.4 % 0-1 [facility] Eosinophils/100 WBC (Bld) 0.5 % 0-5 [facility] Neutrophils (Bld) [#/Vol] 6.7 10*3/uL 2.0-7.7 [facility] Neutrophils/100 WBC (Bld) 70.9 % 47-70 [facility] WBC (Bld) [#/Vol] 9.4 10*3/uL 4.4-11.0 [facility] Blood erythrocytes count (nu mber/volume)Ordered By: Renard Burgos on 10-17-2022 RBC (Bld) [#/Vol] 4.33 10*6/uL 4.6-6.2 [facility] Blood hemoglobin measurement (mass/volume)Ordered By: Renard Burgos on 10-17-2022 Hemoglobin (Bld) [Mass/Vol] 13.3 g/dL 13.0-16.5 [facility] Blood lymphocytes/100 leukoc ytesOrdered By: Renard Burgos on 10-17-2022 Lymphocytes/100 WBC (Bld) 21.7 % 19-41 [facility] Blood monocytes/100 leukocyt esOrdered By: Renard Burgos on 10-17-2022 Monocytes/100 WBC (Bld) 6.1 % 0-10 [facility] Blood platelet mean volumeOr dered By: Renard Burgos on 10-17-2022 Platelet mean volume (Bld) [Entitic vol] 10.9 fL 6.2-12.0 [facility] Determination of erythrocyte mean corpuscular volume (MCV)Ordered By: Renard Burgos on 10-17-2022 MCV (RBC) [Entitic vol] 93.8 fL 80-94 [facility] Hematocrit Auto (Bld) [Volum e fraction]Ordered By: Renard Burgos on 10-17-2022 Hematocrit (Bld) [Volume fraction] 40.6 % 40-54 [facility] Laboratory - Hematology and Cell countsOrdered By: Renard Burgos on 10-17-2022 Erythrocyte distribution width (RBC) [Entitic vol] 42.7 fL 35.1-43.9 [facility] Erythrocyte distribution width (RBC) [Ratio] 12.4 % 11.6-14.6 [facility] Immature granulocytes/100 WBC (Bld) 0.400 % 0.0-0.9 [facility] Comment on above: IG% - Immature Granu locytes (promyelocytes, myelocytes and metamyelocytes) > 1% indicates that a LEFT SHIFT is Present. MCH (RBC) [Entitic mass] 30.7 pg 27.0-32.0 [facility] Nucleated RBC/100 [facility]Bld) [[facility]] 0 [facility] [Mass/Vol]Or dered By: Renard Burgos on 10-17-2022 MCHC (RBC) [Mass/Vol] 32.8 g/dL 32-36 [facility] Platelets bldOrdered By: Lyubov Burgos on 10-17-2022 Platelets (Bld) [#/Vol] 186 10*3/uL 150-450 [facility] Absolute lymphocyte countOrd ered By: Renard Burgos on 10-10-2022 Lymphocytes Auto (Unsp spec) [#/Vol] 2.21 10*3/uL 0.83-4.51 [facility] Basophil percentageOrdered B y: Renard Burgos on 10-10-2022 Basophils/100 WBC (Bld) 0.6 % 0-1 [facility] Eosinophils/100 WBC (Bld) 0.6 % 0-5 [facility] Neutrophils (Bld) [#/Vol] 4.7 10*3/uL 2.0-7.7 [facility] Neutrophils/100 WBC (Bld) 59.6 % 47-70 [facility] WBC (Bld) [#/Vol] 7.9 10*3/uL 4.4-11.0 [facility] Blood erythrocytes count (nu mber/volume)Ordered By: Renard Burgos on 10-10-2022 RBC (Bld) [#/Vol] 4.78 10*6/uL 4.6-6.2 [facility] Blood hemoglobin measurement (mass/volume)Ordered By: Renard Burgos on 10-10-2022 Hemoglobin (Bld) [Mass/Vol] 14.4 g/dL 13.0-16.5 [facility] Blood lymphocytes/100 leukoc ytesOrdered By: Renard Burgos on 10-10-2022 Lymphocytes/100 WBC (Bld) 28.0 % 19-41 [facility] Blood monocytes/100 leukocyt esOrdered By: Renard Burgos on 10-10-2022 Monocytes/100 WBC (Bld) 10.8 % 0-10 [facility] Blood platelet mean volumeOr dered By: Renard Burgos on 10-10-2022 Platelet mean volume (Bld) [Entitic vol] 10.7 fL 6.2-12.0 [facility] Determination of erythrocyte mean corpuscular volume (MCV)Ordered By: Renard Burgos on 10-10-2022 MCV (RBC) [Entitic vol] 94.8 fL 80-94 [facility] Hematocrit Auto (Bld) [Volum e fraction]Ordered By: Renard Burgos on 10-10-2022 Hematocrit (Bld) [Volume fraction] 45.3 % 40-54 [facility] Laboratory - Hematology and Cell countsOrdered By: Renard Burgos on 10-10-2022 Erythrocyte distribution width (RBC) [Entitic vol] 43.8 fL 35.1-43.9 [facility] Erythrocyte distribution width (RBC) [Ratio] 12.6 % 11.6-14.6 [facility] Immature granulocytes/100 WBC (Bld) 0.400 % 0.0-0.9 [facility] Comment on above: IG% - Immature Granu locytes (promyelocytes, myelocytes and metamyelocytes) > 1% indicates that a LEFT SHIFT is Present. MCH (RBC) [Entitic mass] 30.1 pg 27.0-32.0 [facility] Nucleated RBC/100 WBC (Bld) [Ratio] 0 % 0-5 [facility] MCHC Auto (RBC) [Mass/Vol]Or dered By: Renard Burgos on 10-10-2022 MCHC (RBC) [Mass/Vol] 31.8 g/dL 32-36 [facility] Platelets bldOrdered By: Lyubov Burgos on 10-10-2022 Platelets (Bld) [#/Vol] 198 10*3/uL 150-450 [facility] Absolute lymphocyte countOrd ered By: Renard Burgos on 10-03-2022 Lymphocytes Auto (Unsp spec) [#/Vol] 2.00 10*3/uL 0.83-4.51 [facility] Basophil percentageOrdered B y: Renard Burgos on 10-03-2022 Basophils/100 WBC (Bld) 0.6 % 0-1 [facility] Bilirubin [Mass/Vol] 0.30 mg/dL 0.20-1.00 [facility] Comment on above: For patients on eltr ombopag therapy, use of Dimension [place] TBIL is not recommended. Chloride [Moles/Vol] 109 mmol/L 98-107 [facility] Cholesterol [Mass/Vol] 129 mg/dL <200 [facility] Comment on above: <200 mg/dL Desirable 200-240 mg/dL Borderline >240 mg/dL High Risk Eosinophils/100 WBC (Bld) 0.8 % 0-5 [facility] Glucose [Mass/Vol] 82 mg/dL 74-106 [facility] Neutrophils (Bld) [#/Vol] 5.1 10*3/uL 2.0-7.7 [facility] Neutrophils/100 WBC (Bld) 63.2 % 47-70 [facility] Potassium [Moles/Vol] 3.9 mmol/L 3.5-5.1 [facility] Protein [Mass/Vol] 6.1 g/dL 6.4-8.2 [facility] Sodium [Moles/Vol] 140 mmol/L 136-145 [facility] Triglyceride [Mass/Vol] 209 mg/dL <199 [facility] Comment on above: The drugs N-Acetylcy steine and Metamizole may falsely depress this assay.Serum Triglycerides Reference Interval Normal <150 mg/dL Borderline high 150 - 199 mg/dL High 200 - 499 mg/dL Very High > or = 500 mg/dL WBC (Bld) [#/Vol] 8.0 10*3/uL 4.4-11.0 [facility] Blood erythrocytes count (nu mber/volume)Ordered By: Renard Burgos on 10-03-2022 RBC (Bld) [#/Vol] 4.58 10*6/uL 4.6-6.2 [facility] Blood hemoglobin measurement (mass/volume)Ordered By: Renard Burgos on 10-03-2022 Hemoglobin (Bld) [Mass/Vol] 13.9 g/dL 13.0-16.5 [facility] Blood lymphocytes/100 leukoc ytesOrdered By: Renard Brugos on 10-03-2022 Lymphocytes/100 WBC (Bld) 25.1 % 19-41 [facility] Blood monocytes/100 leukocyt esOrdered By: Renard Burgos on 10-03-2022 Monocytes/100 WBC (Bld) 10.0 % 0-10 [facility] Blood platelet mean volumeOr dered By: Renard Burgos on 10-03-2022 Platelet mean volume (Bld) [Entitic vol] 11.1 fL 6.2-12.0 [facility] Determination of erythrocyte mean corpuscular volume (MCV)Ordered By: Renard Burgos on 10-03-2022 MCV (RBC) [Entitic vol] 93.9 fL 80-94 [facility] Hematocrit Auto (Bld) [Volum e fraction]Ordered By: Renard Burgos on 10-03-2022 Hematocrit (Bld) [Volume fraction] 43.0 % 40-54 [facility] Laboratory - Chemistry and C hemistry - challengeOrdered By: Renard Burgos on 10-03-2022 ALP [Catalytic activity/Vol] 98 U/L 45-117 [facility] ALT [Catalytic activity/Vol] 19 U/L 16-61 [facility] CO2 [Moles/Vol] 31.0 mmol/L 21.0-32.0 [facility] Globulin (S) [Mass/Vol] 3.1 g/dL 2.2-4.2 [facility] Urea nitrogen/Creatinine [Mass ratio] 25.6 mg/mg 10-20 [facility] Laboratory - Hematology and Cell countsOrdered By: Renard Burgos on 10-03-2022 Erythrocyte distribution width (RBC) [Entitic vol] 43.8 fL 35.1-43.9 [facility] Erythrocyte distribution width (RBC) [Ratio] 12.7 % 11.6-14.6 [facility] Immature granulocytes/100 WBC (Bld) 0.300 % 0.0-0.9 [facility] Comment on above: IG% - Immature Granu locytes (promyelocytes, myelocytes and metamyelocytes) > 1% indicates that a LEFT SHIFT is Present. MCH (RBC) [Entitic mass] 30.3 pg 27.0-32.0 [facility] Nucleated RBC/100 WBC (Bld) [Ratio] 0 % 0-5 [facility] MCHC Auto (RBC) [Mass/Vol]Or dered By: Renard Burgos on 10-03-2022 MCHC (RBC) [Mass/Vol] 32.3 g/dL 32-36 [facility] No Panel InformationOrdered By: Renard Burgos on 10-03-2022 Estimated GFR (MDRD) Amer 165 mL/min >60 [facility] Comment on above: GFR Calc Estimated GFR (MDRD) Non-Af Amer 137 mL/min >60 [facility] Comment on above: Non- GFR Calc Platelets bldOrdered By: Lyubov Burgos on 10-03-2022 Platelets (Bld) [#/Vol] 204 10*3/uL 150-450 [facility] Serum or plasma albumin gordy urement (mass/volume)Ordered By: Renard Burgos on 10-03-2022 Albumin [Mass/Vol] 3.0 g/dL 3.2-5.0 [facility] Serum or plasma albumin/glob ulin mass ratioOrdered By: Renard Burgos on 10-03-2022 Albumin/Globulin [Mass ratio] 1.0 {ratio} 0.9-2.4 [facility] Serum or plasma calcium gordy urement (mass/volume)Ordered By: Renard Burgos on 10-03-2022 Calcium [Mass/Vol] 8.4 mg/dL 8.5-10.1 [facility] Serum or plasma cholesterol in HDL measurement (mass/volume)Ordered By: Renard Burgos on 10-03-2022 Cholesterol in HDL [Mass/Vol] 29 mg/dL >40 [facility] Comment on above: The drugs N-Acetylcy steine and Metamizole may falsely depress this assay. Reference Range HDL <40 mg/dL Low HDL Cholesterol HDL >or= 60 mg/dL High HDL Cholesterol Serum or plasma cholesterol in VLDL measurement (mass/volume)Ordered By: Renard Burgos on 10-03-2022 Cholesterol in VLDL [Mass/Vol] 42 mg/dL 5-40 [facility] Serum or plasma creatinine m easurement (mass/volume)Ordered By: Renard Burgos on 10-03-2022 Creatinine [Mass/Vol] 0.63 mg/dL 0.70-1.30 [facility] Comment on above: The validity of the calculated GFR & GFRAA in patients over 70 years has not been determined. Clinical correlation is essential. Serum or plasma low density lipoprotein (LDL) cholesterol measurement (mass/volume)Ordered By: Renard Burgos on 10-03-2022 Cholesterol in LDL [Mass/Vol] 58 mg/dL 0-130 [facility] Serum or plasma urea nitroge n measurement (mass/volume)Ordered By: Renard Burgos on 10-03-2022 Urea nitrogen [Mass/Vol] 16 mg/dL 7-18 [facility] Thin prep Papanicolaou smear with manual screeningOrdered By: Renard Burgos on 10-03-2022 Thin prep Papanicolaou smear with manual screening 13 U/L 15-37 [facility] Thin prep Papanicolaou smear with manual screening 0 5-15 [facility] Absolute lymphocyte countOrd ered By: Renard Burgos on 09-19-2022 Lymphocytes Auto (Unsp spec) [#/Vol] 1.59 10*3/uL 0.83-4.51 [facility] Basophil percentageOrdered B y: Renard Burgos on 09-19-2022 Basophils/100 WBC (Bld) 0.5 % 0-1 [facility] Eosinophils/100 WBC (Bld) 0.3 % 0-5 [facility] Neutrophils (Bld) [#/Vol] 7.4 10*3/uL 2.0-7.7 [facility] Neutrophils/100 WBC (Bld) 75.0 % 47-70 [facility] WBC (Bld) [#/Vol] 9.9 10*3/uL 4.4-11.0 [facility] Blood erythrocytes count (nu mber/volume)Ordered By: Renard Burgos on 09-19-2022 RBC (Bld) [#/Vol] 4.46 10*6/uL 4.6-6.2 [facility] Blood hemoglobin measurement (mass/volume)Ordered By: Renard Burgos on 09-19-2022 Hemoglobin (Bld) [Mass/Vol] 13.5 g/dL 13.0-16.5 [facility] Blood lymphocytes/100 leukoc ytesOrdered By: Renard Burgos on 09-19-2022 Lymphocytes/100 WBC (Bld) 16.1 % 19-41 [facility] Blood monocytes/100 leukocyt esOrdered By: Renard Burgos on 09-19-2022 Monocytes/100 WBC (Bld) 7.6 % 0-10 [facility] Blood platelet mean volumeOr dered By: Renard Burgos on 09-19-2022 Platelet mean volume (Bld) [Entitic vol] 10.8 fL 6.2-12.0 [facility] Determination of erythrocyte mean corpuscular volume (MCV)Ordered By: Renard Burgos on 09-19-2022 MCV (RBC) [Entitic vol] 92.2 fL 80-94 [facility] Hematocrit Auto (Bld) [Volum e fraction]Ordered By: Renard Burgos on 09-19-2022 Hematocrit (Bld) [Volume fraction] 41.1 % 40-54 [facility] Laboratory - Hematology and Cell countsOrdered By: Renard Burgos on 09-19-2022 Erythrocyte distribution width (RBC) [Entitic vol] 41.2 fL 35.1-43.9 [facility] Erythrocyte distribution width (RBC) [Ratio] 12.3 % 11.6-14.6 [facility] Immature granulocytes/100 WBC (Bld) 0.500 % 0.0-0.9 [facility] Comment on above: IG% - Immature Granu locytes (promyelocytes, myelocytes and metamyelocytes) > 1% indicates that a LEFT SHIFT is Present. MCH (RBC) [Entitic mass] 30.3 pg 27.0-32.0 [facility] Nucleated RBC/100 WBC (Bld) [Ratio] 0 % 0-5 [facility] MCHC Auto (RBC) [Mass/Vol]Or dered By: Renard Burgos on 09-19-2022 MCHC (RBC) [Mass/Vol] 32.8 g/dL 32-36 [facility] Platelets bldOrdered By: Lyubov Burgos on 09-19-2022 Platelets (Bld) [#/Vol] 245 10*3/uL 150-450 [facility] Absolute lymphocyte countOrd ered By: Renard Burgos on 09-12-2022 Lymphocytes Auto (Unsp spec) [#/Vol] 2.11 10*3/uL 0.83-4.51 [facility] Basophil percentageOrdered B y: Renard Burgos on 09-12-2022 Basophils/100 WBC (Bld) 0.5 % 0-1 [facility] Eosinophils/100 WBC (Bld) 0.7 % 0-5 [facility] Neutrophils (Bld) [#/Vol] 4.7 10*3/uL 2.0-7.7 [facility] Neutrophils/100 WBC (Bld) 63.6 % 47-70 [facility] WBC (Bld) [#/Vol] 7.3 10*3/uL 4.4-11.0 [facility] Blood erythrocytes count (nu mber/volume)Ordered By: Renard Burgos on 09-12-2022 RBC (Bld) [#/Vol] 4.40 10*6/uL 4.6-6.2 [facility] Blood hemoglobin measurement (mass/volume)Ordered By: Renard Burgos on 09-12-2022 Hemoglobin (Bld) [Mass/Vol] 13.5 g/dL 13.0-16.5 [facility] Blood lymphocytes/100 leukoc ytesOrdered By: Renard Burgos on 09-12-2022 Lymphocytes/100 WBC (Bld) 28.8 % 19-41 [facility] Blood monocytes/100 leukocyt esOrdered By: Renard Burgos on 09-12-2022 Monocytes/100 WBC (Bld) 6.1 % 0-10 [facility] Blood platelet mean volumeOr dered By: Renard Burgos on 09-12-2022 Platelet mean volume (Bld) [Entitic vol] 10.7 fL 6.2-12.0 [facility] Determination of erythrocyte mean corpuscular volume (MCV)Ordered By: Renard Burgos on 09-12-2022 MCV (RBC) [Entitic vol] 91.4 fL 80-94 [facility] Hematocrit Auto (Bld) [Volum e fraction]Ordered By: Renard Burgos on 09-12-2022 Hematocrit (Bld) [Volume fraction] 40.2 % 40-54 [facility] Laboratory - Hematology and Cell countsOrdered By: Renard Burgos on 09-12-2022 Erythrocyte distribution width (RBC) [Entitic vol] 41.3 fL 35.1-43.9 [facility] Erythrocyte distribution width (RBC) [Ratio] 12.5 % 11.6-14.6 [facility] Immature granulocytes/100 WBC (Bld) 0.300 % 0.0-0.9 [facility] Comment on above: IG% - Immature Granu locytes (promyelocytes, myelocytes and metamyelocytes) > 1% indicates that a LEFT SHIFT is Present. MCH (RBC) [Entitic mass] 30.7 pg 27.0-32.0 [facility] Nucleated RBC/100 WBC (Bld) [Ratio] 0 % 0-5 [facility] MCHC Auto (RBC) [Mass/Vol]Or dered By: Renard Burgos on 09-12-2022 MCHC (RBC) [Mass/Vol] 33.6 g/dL 32-36 [facility] Platelets bldOrdered By: Lyubov Burgos on 09-12-2022 Platelets (Bld) [#/Vol] 197 10*3/uL 150-450 [facility] Absolute lymphocyte countOrd ered By: Renard Burgos on 09-05-2022 Lymphocytes Auto (Unsp spec) [#/Vol] 1.94 10*3/uL 0.83-4.51 [facility] Basophil percentageOrdered B y: Renard Burgos on 09-05-2022 Basophils/100 WBC (Bld) 0.5 % 0-1 [facility] Cholesterol [Mass/Vol] 136 mg/dL <200 [facility] Comment on above: <200 mg/dL Desirable 200-240 mg/dL Borderline >240 mg/dL High Risk Eosinophils/100 WBC (Bld) 0.4 % 0-5 [facility] Neutrophils (Bld) [#/Vol] 5.4 10*3/uL 2.0-7.7 [facility] Neutrophils/100 WBC (Bld) 67.5 % 47-70 [facility] Triglyceride [Mass/Vol] 304 mg/dL <199 [facility] Comment on above: The drugs N-Acetylcy steine and Metamizole may falsely depress this assay.Serum Triglycerides Reference Interval Normal <150 mg/dL Borderline high 150 - 199 mg/dL High 200 - 499 mg/dL Very High > or = 500 mg/dL WBC (Bld) [#/Vol] 7.9 10*3/uL 4.4-11.0 [facility] Blood erythrocytes count (nu mber/volume)Ordered By: Renard Burgos on 09-05-2022 RBC (Bld) [#/Vol] 4.28 10*6/uL 4.6-6.2 [facility] Blood hemoglobin measurement (mass/volume)Ordered By: Renard Burgos on 09-05-2022 Hemoglobin (Bld) [Mass/Vol] 12.9 g/dL 13.0-16.5 [facility] Blood lymphocytes/100 leukoc ytesOrdered By: Renard Burgos on 09-05-2022 Lymphocytes/100 WBC (Bld) 24.5 % 19-41 [facility] Blood monocytes/100 leukocyt esOrdered By: Renard Burgos on 09-05-2022 Monocytes/100 WBC (Bld) 6.6 % 0-10 [facility] Blood platelet mean volumeOr dered By: Renard Burgos on 09-05-2022 Platelet mean volume (Bld) [Entitic vol] 10.7 fL 6.2-12.0 [facility] Determination of erythrocyte mean corpuscular volume (MCV)Ordered By: Renard Burgos on 09-05-2022 MCV (RBC) [Entitic vol] 91.4 fL 80-94 [facility] Hematocrit Auto (Bld) [Volum e fraction]Ordered By: Renard Burgos on 09-05-2022 Hematocrit (Bld) [Volume fraction] 39.1 % 40-54 [facility] Laboratory - Hematology and Cell countsOrdered By: Renard Burgos on 09-05-2022 Erythrocyte distribution width (RBC) [Entitic vol] 41.5 fL 35.1-43.9 [facility] Erythrocyte distribution width (RBC) [Ratio] 12.6 % 11.6-14.6 [facility] Immature granulocytes/100 WBC (Bld) 0.500 % 0.0-0.9 [facility] Comment on above: IG% - Immature Granu locytes (promyelocytes, myelocytes and metamyelocytes) > 1% indicates that a LEFT SHIFT is Present. MCH (RBC) [Entitic mass] 30.1 pg 27.0-32.0 [facility] Nucleated RBC/100 WBC (Bld) [Ratio] 0 % 0-5 [facility] MCHC Auto (RBC) [Mass/Vol]Or dered By: Renard Burgos on 09-05-2022 MCHC (RBC) [Mass/Vol] 33.0 g/dL 32-36 [facility] Platelets bldOrdered By: Lyubov Burgos on 09-05-2022 Platelets (Bld) [#/Vol] 200 10*3/uL 150-450 [facility] Serum or plasma cholesterol in HDL measurement (mass/volume)Ordered By: Renard Burgos on 09-05-2022 Cholesterol in HDL [Mass/Vol] 24 mg/dL >40 [facility] Comment on above: The drugs N-Acetylcy steine and Metamizole may falsely depress this assay. Reference Range HDL <40 mg/dL Low HDL Cholesterol HDL >or= 60 mg/dL High HDL Cholesterol Serum or plasma cholesterol in VLDL measurement (mass/volume)Ordered By: Renard Burgos on 09-05-2022 Cholesterol in VLDL [Mass/Vol] 61 mg/dL 5-40 [facility] Serum or plasma low density lipoprotein (LDL) cholesterol measurement (mass/volume)Ordered By: Renard Burgos on 09-05-2022 Cholesterol in LDL [Mass/Vol] 51 mg/dL 0-130 [facility] Absolute lymphocyte countOrd ered By: Renard Burgos on 08-29-2022 Lymphocytes Auto (Unsp spec) [#/Vol] 1.91 10*3/uL 0.83-4.51 [facility] Basophil percentageOrdered B y: Renard Burgos on 08-29-2022 Basophils/100 WBC (Bld) 0.4 % 0-1 [facility] Eosinophils/100 WBC (Bld) 0.4 % 0-5 [facility] Neutrophils (Bld) [#/Vol] 4.8 10*3/uL 2.0-7.7 [facility] Neutrophils/100 WBC (Bld) 66.0 % 47-70 [facility] WBC (Bld) [#/Vol] 7.3 10*3/uL 4.4-11.0 [facility] Blood erythrocytes count (nu mber/volume)Ordered By: Renard Burgos on 05-01-2023 RBC (Bld) [#/Vol] 4.43 10*6/uL 4.6-6.2 [facility] Blood hemoglobin measurement (mass/volume)Ordered By: Renard Burgos on 08-29-2022 Hemoglobin (Bld) [Mass/Vol] 13.6 g/dL 13.0-16.5 [facility] Blood lymphocytes/100 leukoc ytesOrdered By: Renard Burgos on 08-29-2022 Lymphocytes/100 WBC (Bld) 26.2 % 19-41 [facility] Blood monocytes/100 leukocyt esOrdered By: Renard Burgos on 08-29-2022 Monocytes/100 WBC (Bld) 6.6 % 0-10 [facility] Blood platelet mean volumeOr dered By: Renard Burgos on 08-29-2022 Platelet mean volume (Bld) [Entitic vol] 11.0 fL 6.2-12.0 [facility] Determination of erythrocyte mean corpuscular volume (MCV)Ordered By: Renard Burgos on 08-29-2022 MCV (RBC) [Entitic vol] 92.1 fL 80-94 [facility] Hematocrit Auto (Bld) [Volum e fraction]Ordered By: Renard Burgos on 08-29-2022 Hematocrit (Bld) [Volume fraction] 40.8 % 40-54 [facility] Laboratory - Hematology and Cell countsOrdered By: Renard Burgos on 08-29-2022 Erythrocyte distribution width (RBC) [Entitic vol] 42.0 fL 35.1-43.9 [facility] Erythrocyte distribution width (RBC) [Ratio] 12.4 % 11.6-14.6 [facility] Immature granulocytes/100 WBC (Bld) 0.400 % 0.0-0.9 [facility] Comment on above: IG% - Immature Granu locytes (promyelocytes, myelocytes and metamyelocytes) > 1% indicates that a LEFT SHIFT is Present. MCH (RBC) [Entitic mass] 30.7 pg 27.0-32.0 [facility] Nucleated RBC/100 WBC (Bld) [Ratio] 0 % 0-5 [facility] MCHC Auto (RBC) [Mass/Vol]Or dered By: Renard Burgos on 08-29-2022 MCHC (RBC) [Mass/Vol] 33.3 g/dL 32-36 [facility] Platelets bldOrdered By: Lyubov lizy Loretta on 08-29-2022 Platelets (Bld) [#/Vol] 195 10*3/uL 150-450 [facility] Absolute lymphocyte countOrd ered By: Renard Burgos on 08-22-2022 Lymphocytes Auto (Unsp spec) [#/Vol] 1.86 10*3/uL 0.83-4.51 [facility] Basophil percentageOrdered B y: Renard Burgos on 08-22-2022 Basophils/100 WBC (Bld) 0.4 % 0-1 [facility] Eosinophils/100 WBC (Bld) 0.4 % 0-5 [facility] Neutrophils (Bld) [#/Vol] 6.5 10*3/uL 2.0-7.7 [facility] Neutrophils/100 WBC (Bld) 70.5 % 47-70 [facility] WBC (Bld) [#/Vol] 9.3 10*3/uL 4.4-11.0 [facility] Blood erythrocytes count (nu mber/volume)Ordered By: Renard Burgos on 08-22-2022 RBC (Bld) [#/Vol] 4.55 10*6/uL 4.6-6.2 [facility] Blood hemoglobin measurement (mass/volume)Ordered By: Renard Burgos on 08-22-2022 Hemoglobin (Bld) [Mass/Vol] 14.1 g/dL 13.0-16.5 [facility] Blood lymphocytes/100 leukoc ytesOrdered By: Renard Burgos on 08-22-2022 Lymphocytes/100 WBC (Bld) 20.1 % 19-41 [facility] Blood monocytes/100 leukocyt esOrdered By: Renard Burgos on 08-22-2022 Monocytes/100 WBC (Bld) 8.3 % 0-10 [facility] Blood platelet mean volumeOr dered By: Renard Burgos on 08-22-2022 Platelet mean volume (Bld) [Entitic vol] 10.8 fL 6.2-12.0 [facility] Determination of erythrocyte mean corpuscular volume (MCV)Ordered By: Renard Burgos on 08-22-2022 MCV (RBC) [Entitic vol] 91.9 fL 80-94 [facility] Hematocrit Auto (Bld) [Volum e fraction]Ordered By: Renard Burgos on 08-22-2022 Hematocrit (Bld) [Volume fraction] 41.8 % 40-54 [facility] Laboratory - Hematology and Cell countsOrdered By: Renard Burgos on 08-22-2022 Erythrocyte distribution width (RBC) [Entitic vol] 42.5 fL 35.1-43.9 [facility] Erythrocyte distribution width (RBC) [Ratio] 12.6 % 11.6-14.6 [facility] Immature granulocytes/100 WBC (Bld) 0.300 % 0.0-0.9 [facility] Comment on above: IG% - Immature Granu locytes (promyelocytes, myelocytes and metamyelocytes) > 1% indicates that a LEFT SHIFT is Present. MCH (RBC) [Entitic mass] 31.0 pg 27.0-32.0 [facility] Nucleated RBC/100 WBC (Bld) [Ratio] 0 % 0-5 [facility] MCHC Auto (RBC) [Mass/Vol]Or dered By: Renard Burgos on 08-22-2022 MCHC (RBC) [Mass/Vol] 33.7 g/dL 32-36 [facility] Platelets bldOrdered By: Lyubov Burgos on 08-22-2022 Platelets (Bld) [#/Vol] 197 10*3/uL 150-450 [facility] Absolute lymphocyte countOrd ered By: Renard Burgos on 08-15-2022 Lymphocytes Auto (Unsp spec) [#/Vol] 1.88 10*3/uL 0.83-4.51 [facility] Basophil percentageOrdered B y: Renard Burgos on 08-15-2022 Basophils/100 WBC (Bld) 0.5 % 0-1 [facility] Eosinophils/100 WBC (Bld) 0.5 % 0-5 [facility] Neutrophils (Bld) [#/Vol] 5.1 10*3/uL 2.0-7.7 [facility] Neutrophils/100 WBC (Bld) 65.0 % 47-70 [facility] WBC (Bld) [#/Vol] 7.9 10*3/uL 4.4-11.0 [facility] Blood erythrocytes count (nu mber/volume)Ordered By: Renard Burgos on 08-15-2022 RBC (Bld) [#/Vol] 4.48 10*6/uL 4.6-6.2 [facility] Blood hemoglobin measurement (mass/volume)Ordered By: Renard Burgos on 08-15-2022 Hemoglobin (Bld) [Mass/Vol] 13.7 g/dL 13.0-16.5 [facility] Blood lymphocytes/100 leukoc ytesOrdered By: Renard Burgos on 08-15-2022 Lymphocytes/100 WBC (Bld) 23.9 % 19-41 [facility] Blood monocytes/100 leukocyt esOrdered By: Renard Burgos on 08-15-2022 Monocytes/100 WBC (Bld) 9.8 % 0-10 [facility] Blood platelet mean volumeOr dered By: Renard Burgos on 08-15-2022 Platelet mean volume (Bld) [Entitic vol] 10.7 fL 6.2-12.0 [facility] Determination of erythrocyte mean corpuscular volume (MCV)Ordered By: Renard Burgos on 08-15-2022 MCV (RBC) [Entitic vol] 91.1 fL 80-94 [facility] Hematocrit Auto (Bld) [Volum e fraction]Ordered By: Renard Burgos on 08-15-2022 Hematocrit (Bld) [Volume fraction] 40.8 % 40-54 [facility] Laboratory - Hematology and Cell countsOrdered By: Renard Burgos on 08-15-2022 Erythrocyte distribution width (RBC) [Entitic vol] 41.0 fL 35.1-43.9 [facility] Erythrocyte distribution width (RBC) [Ratio] 12.4 % 11.6-14.6 [facility] Immature granulocytes/100 WBC (Bld) 0.300 % 0.0-0.9 [facility] Comment on above: IG% - Immature Granu locytes (promyelocytes, myelocytes and metamyelocytes) > 1% indicates that a LEFT SHIFT is Present. MCH (RBC) [Entitic mass] 30.6 pg 27.0-32.0 [facility] Nucleated RBC/100 WBC (Bld) [Ratio] 0 % 0-5 [facility] MCHC Auto (RBC) [Mass/Vol]Or dered By: Renard Burgos on 08-15-2022 MCHC (RBC) [Mass/Vol] 33.6 g/dL 32-36 [facility] Platelets bldOrdered By: Lyubov Burgos on 08-15-2022 Platelets (Bld) [#/Vol] 212 10*3/uL 150-450 [facility] Absolute lymphocyte countOrd ered By: Renard Burgos on 08-08-2022 Lymphocytes Auto (Unsp spec) [#/Vol] 1.96 10*3/uL 0.83-4.51 [facility] Basophil percentageOrdered B y: Renard Burgos on 08-08-2022 Basophils/100 WBC (Bld) 0.5 % 0-1 [facility] Eosinophils/100 WBC (Bld) 0.5 % 0-5 [facility] [facility] Neutrophils (Bld) [#/Vol] 4.7 10*3/uL 2.0-7.7 [facility] Neutrophils/100 WBC (Bld) 64.1 % 47-70 [facility] [place] WBC (Bld) [#/Vol] 7.4 10*3/uL 4.4-11.0 [facility] Blood erythrocytes count (nu mber/volume)Ordered By: Renard Burgos on 08-08-2022 RBC (Bld) [#/Vol] 4.44 10*6/uL 4.6-6.2 [facility] Blood hemoglobin measurement (mass/volume)Ordered By: Renard Burgos on 08-08-2022 Hemoglobin (Bld) [Mass/Vol] 13.6 g/dL 13.0-16.5 [facility] [place] Blood lymphocytes/100 leukoc ytesOrdered By: Renard Burgos on 08-08-2022 Lymphocytes/100 WBC (Bld) 26.5 % 19-41 [facility] [place] Blood monocytes/100 leukocyt esOrdered By: Renard Burgos on 08-08-2022 Monocytes/100 WBC (Bld) 8.1 % 0-10 [facility] Blood platelet mean volumeOr dered By: Renard Burgos on 08-08-2022 Platelet mean volume (Bld) [Entitic vol] 10.8 fL 6.2-12.0 [facility] Determination of erythrocyte mean corpuscular volume (MCV)Ordered By: Renard Burgos on 08-08-2022 MCV (RBC) [Entitic vol] 91.7 fL 80-94 [facility] [place] Hematocrit Auto (Bld) [Volum e fraction]Ordered By: Renard Burgos on 08-08-2022 Hematocrit (Bld) [Volume fraction] 40.7 % 40-54 [facility] [place] Laboratory - Hematology and Cell countsOrdered By: Renard Burgos on 08-08-2022 Erythrocyte distribution width (RBC) [Entitic vol] 42.7 fL 35.1-43.9 [facility] [place] Erythrocyte distribution width (RBC) [Ratio] 12.6 % 11.6-14.6 [facility] Immature granulocytes/100 WBC (Bld) 0.300 % 0.0-0.9 [facility] Comment on above: IG% - Immature Granu locytes (promyelocytes, myelocytes and metamyelocytes) > 1% indicates that a LEFT SHIFT is Present. MCH (RBC) [Entitic mass] 30.6 pg 27.0-32.0 [facility] Nucleated RBC/100 WBC (Bld) [Ratio] 0 % 0-5 [facility] MCHC Auto (RBC) [Mass/Vol]Or dered By: Renard Burgos on 08-08-2022 MCHC (RBC) [Mass/Vol] 33.4 g/dL 32-36 [facility] Platelets bldOrdered By: Lyubov Burgos on 08-08-2022 Platelets (Bld) [#/Vol] 187 10*3/uL 150-450 [facility] [place] Absolute lymphocyte countOrd ered By: Renard Burgos on 08-01-2022 Lymphocytes Auto (Unsp spec) [#/Vol] 2.09 10*3/uL 0.83-4.51 [facility] Basophil percentageOrdered B y: Renard Burgos on 08-01-2022 Basophils/100 WBC (Bld) 0.4 % 0-1 [facility] [place] Eosinophils/100 WBC (Bld) 0.4 % 0-5 [facility] Neutrophils (Bld) [#/Vol] 6.6 10*3/uL 2.0-7.7 [facility] [place] Neutrophils/100 WBC (Bld) 69.1 % 47-70 [facility] WBC (Bld) [#/Vol] 9.5 10*3/uL 4.4-11.0 [facility] Blood erythrocytes count (nu mber/volume)Ordered By: Renard Burgos on 08-01-2022 RBC (Bld) [#/Vol] 4.48 10*6/uL 4.6-6.2 [facility] Blood hemoglobin measurement (mass/volume)Ordered By: Renard Burgos on 08-01-2022 Hemoglobin (Bld) [Mass/Vol] 13.9 g/dL 13.0-16.5 [facility] Blood lymphocytes/100 leukoc ytesOrdered By: Renard Burgos on 08-01-2022 Lymphocytes/100 WBC (Bld) 21.9 % 19-41 [facility] Blood monocytes/100 leukocyt esOrdered By: Renard Burgos on 08-01-2022 Monocytes/100 WBC (Bld) 7.9 % 0-10 [facility] Blood platelet mean volumeOr dered By: Renard Burgos on 08-01-2022 Platelet mean volume (Bld) [Entitic vol] 11.0 fL 6.2-12.0 [facility] Determination of erythrocyte mean corpuscular volume (MCV)Ordered By: Renard Burgos on 08-01-2022 MCV (RBC) [Entitic vol] 91.5 fL 80-94 [facility] Hematocrit Auto (Bld) [Volum e fraction]Ordered By: Renard Burgos on 08-01-2022 Hematocrit (Bld) [Volume fraction] 41.0 % 40-54 [facility] [place] Laboratory - Hematology and Cell countsOrdered By: Renard Burgos on 08-01-2022 Erythrocyte distribution width (RBC) [Entitic vol] 41.6 fL 35.1-43.9 [facility] [place] Erythrocyte distribution width (RBC) [Ratio] 12.5 % 11.6-14.6 [facility] [place] Immature granulocytes/100 WBC (Bld) 0.300 % 0.0-0.9 [facility] Comment on above: IG% - Immature Granu locytes (promyelocytes, myelocytes and metamyelocytes) > 1% indicates that a LEFT SHIFT is Present. MCH (RBC) [Entitic mass] 31.0 pg 27.0-32.0 [facility] Nucleated RBC/100 WBC (Bld) [Ratio] 0 % 0-5 [facility] MCHC Auto (RBC) [Mass/Vol]Or dered By: Renard Burgos on 08-01-2022 MCHC (RBC) [Mass/Vol] 33.9 g/dL 32-36 [facility] Platelets bldOrdered By: Lyubov Burgos on 08-01-2022 Platelets (Bld) [#/Vol] 208 10*3/uL 150-450 [facility] [place] Absolute lymphocyte countOrd ered By: Renard Burgos on 07-25-2022 Lymphocytes Auto (Unsp spec) [#/Vol] 2.16 10*3/uL 0.83-4.51 [facility] Basophil percentageOrdered B y: Renard Burgos on 07-25-2022 Basophils/100 WBC (Bld) 0.6 % 0-1 [facility] [place] Eosinophils/100 WBC (Bld) 0.6 % 0-5 [facility] Neutrophils (Bld) [#/Vol] 5.4 10*3/uL 2.0-7.7 [facility] Neutrophils/100 WBC (Bld) 64.5 % 47-70 [facility] WBC (Bld) [#/Vol] 8.4 10*3/uL 4.4-11.0 [facility] Blood erythrocytes count (nu mber/volume)Ordered By: Renard Burgos on 07-25-2022 RBC (Bld) [#/Vol] 4.45 10*6/uL 4.6-6.2 [facility] Blood hemoglobin measurement (mass/volume)Ordered By: Renard Burgos on 07-25-2022 Hemoglobin (Bld) [Mass/Vol] 13.4 g/dL 13.0-16.5 [facility] Blood lymphocytes/100 leukoc ytesOrdered By: Renard Burgos on 07-25-2022 Lymphocytes/100 WBC (Bld) 25.7 % 19-41 [facility] Blood monocytes/100 leukocyt esOrdered By: Renard Burgos on 07-25-2022 Monocytes/100 WBC (Bld) 8.4 % 0-10 [facility] Blood platelet mean volumeOr dered By: Renard Burgos on 07-25-2022 Platelet mean volume (Bld) [Entitic vol] 11.0 fL 6.2-12.0 [facility] Determination of erythrocyte mean corpuscular volume (MCV)Ordered By: Renard Burgos on 07-25-2022 MCV (RBC) [Entitic vol] 92.8 fL 80-94 [facility] Hematocrit Auto (Bld) [Volum e fraction]Ordered By: Renard Burgos on 07-25-2022 Hematocrit (Bld) [Volume fraction] 41.3 % 40-54 [facility] [place] Laboratory - Hematology and Cell countsOrdered By: Renard Burgos on 07-25-2022 Erythrocyte distribution width (RBC) [Entitic vol] 42.5 fL 35.1-43.9 [facility] Erythrocyte distribution width (RBC) [Ratio] 12.5 % 11.6-14.6 [facility] Immature granulocytes/100 WBC (Bld) 0.200 % 0.0-0.9 [facility] Comment on above: IG% - Immature Granu locytes (promyelocytes, myelocytes and metamyelocytes) > 1% indicates that a LEFT SHIFT is Present. MCH (RBC) [Entitic mass] 30.1 pg 27.0-32.0 [facility] Nucleated RBC/100 WBC (Bld) [Ratio] 0 % 0-5 [facility] MCHC Auto (RBC) [Mass/Vol]Or dered By: Renard Burgos on 07-25-2022 MCHC (RBC) [Mass/Vol] 32.4 g/dL 32-36 [facility] Platelets bldOrdered By: Lyubov Burgos on 07-25-2022 Platelets (Bld) [#/Vol] 200 10*3/uL 150-450 [facility] No Panel InformationOrdered By: Renard Burgos on 07-19-2022 Vitamin D 25-Hydroxy 34.2 ng/mL [facility] Comment on above: Vitamin D 25(OH) Sta tus Range Deficiency <20 ng/mL (50nmol/L) Insufficiency 20 - 30 ng/mL (50 - 75 nmol/L) Sufficiency 30 - 100 ng/mL (75 - 250 nmol/L) Toxicity >100 ng/mL (>250 nmol/L) Absolute lymphocyte countOrd ered By: Renard Burgos on 07-18-2022 Lymphocytes Auto (Unsp spec) [#/Vol] 2.48 10*3/uL 0.83-4.51 [facility] Basophil percentageOrdered B y: Renard Burgos on 07-18-2022 Basophils/100 WBC (Bld) 0.5 % 0-1 [facility] [place] Eosinophils/100 WBC (Bld) 0.6 % 0-5 [facility] Neutrophils (Bld) [#/Vol] 5.9 10*3/uL 2.0-7.7 [facility] Neutrophils/100 WBC (Bld) 61.6 % 47-70 [facility] WBC (Bld) [#/Vol] 9.6 10*3/uL 4.4-11.0 [facility] Blood erythrocytes count (nu mber/volume)Ordered By: Renard Burgos on 07-18-2022 RBC (Bld) [#/Vol] 4.56 10*6/uL 4.6-6.2 [facility] Blood hemoglobin measurement (mass/volume)Ordered By: Renard Burgos on 07-18-2022 Hemoglobin (Bld) [Mass/Vol] 13.9 g/dL 13.0-16.5 [facility] Blood lymphocytes/100 leukoc ytesOrdered By: Renard Burgos on 07-18-2022 Lymphocytes/100 WBC (Bld) 25.9 % 19-41 [facility] Blood monocytes/100 leukocyt esOrdered By: Renard Burgos on 07-18-2022 Monocytes/100 WBC (Bld) 11.0 % 0-10 [facility] [place] Blood platelet mean volumeOr dered By: Renard Burgos on 07-18-2022 Platelet mean volume (Bld) [Entitic vol] 11.3 fL 6.2-12.0 [facility] Determination of erythrocyte mean corpuscular volume (MCV)Ordered By: Renard Burgos on 07-18-2022 MCV (RBC) [Entitic vol] 93.9 fL 80-94 [facility] [place] Hematocrit Auto (Bld) [Volum e fraction]Ordered By: Renard Burgos on 07-18-2022 Hematocrit (Bld) [Volume fraction] 42.8 % 40-54 [facility] [place] Laboratory - Hematology and Cell countsOrdered By: Renard Burgos on 07-18-2022 Erythrocyte distribution width (RBC) [Entitic vol] 44.0 fL 35.1-43.9 [facility] Erythrocyte distribution width (RBC) [Ratio] 12.8 % 11.6-14.6 [facility] Immature granulocytes/100 WBC (Bld) 0.400 % 0.0-0.9 [facility] Comment on above: IG% - Immature Granu locytes (promyelocytes, myelocytes and metamyelocytes) > 1% indicates that a LEFT SHIFT is Present. MCH (RBC) [Entitic mass] 30.5 pg 27.0-32.0 [facility] Nucleated RBC/100 WBC (Bld) [Ratio] 0 % 0-5 [facility] MCHC Auto (RBC) [Mass/Vol]Or dered By: Renard Burgos on 07-18-2022 MCHC (RBC) [Mass/Vol] 32.5 g/dL 32-36 [facility] Platelets bldOrdered By: Lyubov Burgos on 07-18-2022 Platelets (Bld) [#/Vol] 207 10*3/uL 150-450 [facility] Absolute lymphocyte countOrd ered By: Renard Burgos on 07-11-2022 Lymphocytes Auto (Unsp spec) [#/Vol] 2.37 10*3/uL 0.83-4.51 [facility] Basophil percentageOrdered B y: Renard Burgos on 07-11-2022 Basophils/100 WBC (Bld) 0.6 % 0-1 [facility] [place] Eosinophils/100 WBC (Bld) 0.5 % 0-5 [facility] Neutrophils (Bld) [#/Vol] 5.3 10*3/uL 2.0-7.7 [facility] Neutrophils/100 WBC (Bld) 61.8 % 47-70 [facility] WBC (Bld) [#/Vol] 8.5 10*3/uL 4.4-11.0 [facility] Blood erythrocytes count (nu mber/volume)Ordered By: Renard Burgos on 07-11-2022 RBC (Bld) [#/Vol] 4.83 10*6/uL 4.6-6.2 [facility] Blood hemoglobin measurement (mass/volume)Ordered By: Renard Burgos on 07-11-2022 Hemoglobin (Bld) [Mass/Vol] 14.7 g/dL 13.0-16.5 [facility] [place] Blood lymphocytes/100 leukoc ytesOrdered By: Renard Burgos on 07-11-2022 Lymphocytes/100 WBC (Bld) 27.8 % 19-41 [facility] [place] Blood monocytes/100 leukocyt esOrdered By: Renard Burgos on 07-11-2022 Monocytes/100 WBC (Bld) 8.8 % 0-10 [facility] [place] Blood platelet mean volumeOr dered By: Renard Burgos on 07-11-2022 Platelet mean volume (Bld) [Entitic vol] 10.6 fL 6.2-12.0 [facility] Determination of erythrocyte mean corpuscular volume (MCV)Ordered By: Renard Burgos on 07-11-2022 MCV (RBC) [Entitic vol] 90.7 fL 80-94 [facility] [place] Hematocrit Auto (Bld) [Volum e fraction]Ordered By: Renard Burgos on 07-11-2022 Hematocrit (Bld) [Volume fraction] 43.8 % 40-54 [facility] [place] Laboratory - Hematology and Cell countsOrdered By: Renard Burgos on 07-11-2022 Erythrocyte distribution width (RBC) [Entitic vol] 41.2 fL 35.1-43.9 [facility] Erythrocyte distribution width (RBC) [Ratio] 12.7 % 11.6-14.6 [facility] [place] Immature granulocytes/100 WBC (Bld) 0.500 % 0.0-0.9 [facility] Comment on above: IG% - Immature Granu locytes (promyelocytes, myelocytes and metamyelocytes) > 1% indicates that a LEFT SHIFT is Present. MCH (RBC) [Entitic mass] 30.4 pg 27.0-32.0 [facility] Nucleated RBC/100 WBC (Bld) [Ratio] 0 % 0-5 [facility] MCHC Auto (RBC) [Mass/Vol]Or dered By: Renard Burgos on 07-11-2022 MCHC (RBC) [Mass/Vol] 33.6 g/dL 32-36 [facility] Platelets bldOrdered By: Lyubov Burgos on 07-11-2022 Platelets (Bld) [#/Vol] 207 10*3/uL 150-450 [facility] Absolute lymphocyte countOrd ered By: Renard Burgos on 07-04-2022 Lymphocytes Auto (Unsp spec) [#/Vol] 1.87 10*3/uL 0.83-4.51 [facility] Basophil percentageOrdered B y: Renard Burgos on 07-04-2022 Basophils/100 WBC (Bld) 0.4 % 0-1 [facility] [place] Eosinophils/100 WBC (Bld) 0.5 % 0-5 [facility] Neutrophils (Bld) [#/Vol] 7.5 10*3/uL 2.0-7.7 [facility] Neutrophils/100 WBC (Bld) 72.8 % 47-70 [facility] WBC (Bld) [#/Vol] 10.3 10*3/uL 4.4-11.0 [facility] Blood erythrocytes count (nu mber/volume)Ordered By: Renard Burgos on 07-04-2022 RBC (Bld) [#/Vol] 4.45 10*6/uL 4.6-6.2 [facility] Blood hemoglobin measurement (mass/volume)Ordered By: Renard Burgos on 07-04-2022 Hemoglobin (Bld) [Mass/Vol] 13.5 g/dL 13.0-16.5 [facility] Blood lymphocytes/100 leukoc ytesOrdered By: Renard Burgos on 07-04-2022 Lymphocytes/100 WBC (Bld) 18.1 % 19-41 [facility] Blood monocytes/100 leukocyt esOrdered By: Renard Burgos on 07-04-2022 Monocytes/100 WBC (Bld) 7.7 % 0-10 [facility] [place] Blood platelet mean volumeOr dered By: Renard Burgos on 07-04-2022 Platelet mean volume (Bld) [Entitic vol] 11.3 fL 6.2-12.0 [facility] Determination of erythrocyte mean corpuscular volume (MCV)Ordered By: Renard Burgos on 07-04-2022 MCV (RBC) [Entitic vol] 93.0 fL 80-94 [facility] [place] Hematocrit Auto (Bld) [Volum e fraction]Ordered By: Renard Burgos on 07-04-2022 Hematocrit (Bld) [Volume fraction] 41.4 % 40-54 [facility] [place] Laboratory - Hematology and Cell countsOrdered By: Renard Burgos on 07-04-2022 Erythrocyte distribution width (RBC) [Entitic vol] 43.0 fL 35.1-43.9 [facility] Erythrocyte distribution width (RBC) [Ratio] 12.5 % 11.6-14.6 [facility] Immature granulocytes/100 WBC (Bld) 0.500 % 0.0-0.9 [facility] Comment on above: IG% - Immature Granu locytes (promyelocytes, myelocytes and metamyelocytes) > 1% indicates that a LEFT SHIFT is Present. MCH (RBC) [Entitic mass] 30.3 pg 27.0-32.0 [facility] Nucleated RBC/100 WBC (Bld) [Ratio] 0 % 0-5 [facility] MCHC Auto (RBC) [Mass/Vol]Or dered By: Renard Burgos on 07-04-2022 MCHC (RBC) [Mass/Vol] 32.6 g/dL 32-36 [facility] Platelets bldOrdered By: Lyubov Burgos on 07-04-2022 Platelets (Bld) [#/Vol] 211 10*3/uL 150-450 [facility] [place] Absolute lymphocyte countOrd ered By: Renard Burgos on 06-27-2022 Lymphocytes Auto (Unsp spec) [#/Vol] 1.83 10*3/uL 0.83-4.51 [facility] Basophil percentageOrdered B y: Renard Burgos on 06-27-2022 Basophils/100 WBC (Bld) 0.4 % 0-1 [facility] [place] Eosinophils/100 WBC (Bld) 0.5 % 0-5 [facility] Neutrophils (Bld) [#/Vol] 5.0 10*3/uL 2.0-7.7 [facility] Neutrophils/100 WBC (Bld) 67.6 % 47-70 [facility] WBC (Bld) [#/Vol] 7.4 10*3/uL 4.4-11.0 [facility] Blood erythrocytes count (nu mber/volume)Ordered By: Renard Burgos on 06-27-2022 RBC (Bld) [#/Vol] 4.52 10*6/uL 4.6-6.2 [facility] Blood hemoglobin measurement (mass/volume)Ordered By: Renard Burgos on 06-27-2022 Hemoglobin (Bld) [Mass/Vol] 13.9 g/dL 13.0-16.5 [facility] Blood lymphocytes/100 leukoc ytesOrdered By: Renard Burgos on 06-27-2022 Lymphocytes/100 WBC (Bld) 24.7 % 19-41 [facility] Blood monocytes/100 leukocyt esOrdered By: Renard Burgos on 06-27-2022 Monocytes/100 WBC (Bld) 6.4 % 0-10 [facility] [place] Blood platelet mean volumeOr dered By: Renard Burgos on 06-27-2022 Platelet mean volume (Bld) [Entitic vol] 10.7 fL 6.2-12.0 [facility] Determination of erythrocyte mean corpuscular volume (MCV)Ordered By: Renard Burgos on 06-27-2022 MCV (RBC) [Entitic vol] 91.2 fL 80-94 [facility] [place] Hematocrit Auto (Bld) [Volum e fraction]Ordered By: Renard Burgos on 06-27-2022 Hematocrit (Bld) [Volume fraction] 41.2 % 40-54 [facility] [place] Laboratory - Hematology and Cell countsOrdered By: Renard Burgos on 06-27-2022 Erythrocyte distribution width (RBC) [Entitic vol] 41.9 fL 35.1-43.9 [facility] Erythrocyte distribution width (RBC) [Ratio] 12.7 % 11.6-14.6 [facility] Immature granulocytes/100 WBC (Bld) 0.400 % 0.0-0.9 [facility] Comment on above: IG% - Immature Granu locytes (promyelocytes, myelocytes and metamyelocytes) > 1% indicates that a LEFT SHIFT is Present. MCH (RBC) [Entitic mass] 30.8 pg 27.0-32.0 [facility] Nucleated RBC/100 WBC (Bld) [Ratio] 0 % 0-5 [facility] MCHC Auto (RBC) [Mass/Vol]Or dered By: Renard Burgos on 06-27-2022 MCHC (RBC) [Mass/Vol] 33.7 g/dL 32-36 [facility] Platelets bldOrdered By: Lyubov Burgos on 06-27-2022 Platelets (Bld) [#/Vol] 200 10*3/uL 150-450 [facility] Absolute lymphocyte countOrd ered By: Renard Burgos on 06-20-2022 Lymphocytes Auto (Unsp spec) [#/Vol] 1.57 10*3/uL 0.83-4.51 [facility] Basophil percentageOrdered B y: Renard Burgos on 06-20-2022 Basophils/100 WBC (Bld) 0.2 % 0-1 [facility] [place] Eosinophils/100 WBC (Bld) 0.2 % 0-5 [facility] Neutrophils (Bld) [#/Vol] 6.5 10*3/uL 2.0-7.7 [facility] Neutrophils/100 WBC (Bld) 74.5 % 47-70 [facility] WBC (Bld) [#/Vol] 8.8 10*3/uL 4.4-11.0 [facility] Blood erythrocytes count (nu mber/volume)Ordered By: Renard Burgos on 06-20-2022 RBC (Bld) [#/Vol] 4.79 10*6/uL 4.6-6.2 [facility] Blood hemoglobin measurement (mass/volume)Ordered By: Renard Burgos on 06-20-2022 Hemoglobin (Bld) [Mass/Vol] 14.6 g/dL 13.0-16.5 [facility] [place] Blood lymphocytes/100 leukoc ytesOrdered By: Renard Burgos on 06-20-2022 Lymphocytes/100 WBC (Bld) 17.8 % 19-41 [facility] Blood monocytes/100 leukocyt esOrdered By: Renard Burgos on 06-20-2022 Monocytes/100 WBC (Bld) 7.0 % 0-10 [facility] Blood platelet mean volumeOr dered By: Renard Burgos on 06-20-2022 Platelet mean volume (Bld) [Entitic vol] 11.1 fL 6.2-12.0 [facility] Determination of erythrocyte mean corpuscular volume (MCV)Ordered By: Renard Burgos on 06-20-2022 MCV (RBC) [Entitic vol] 92.1 fL 80-94 [facility] [place] Hematocrit Auto (Bld) [Volum e fraction]Ordered By: Renard Burgos on 06-20-2022 Hematocrit (Bld) [Volume fraction] 44.1 % 40-54 [facility] Laboratory - Hematology and Cell countsOrdered By: Renard Burgos on 06-20-2022 Erythrocyte distribution width (RBC) [Entitic vol] 42.4 fL 35.1-43.9 [facility] Erythrocyte distribution width (RBC) [Ratio] 12.6 % 11.6-14.6 [facility] Immature granulocytes/100 WBC (Bld) 0.300 % 0.0-0.9 [facility] Comment on above: IG% - Immature Granu locytes (promyelocytes, myelocytes and metamyelocytes) > 1% indicates that a LEFT SHIFT is Present. MCH (RBC) [Entitic mass] 30.5 pg 27.0-32.0 [facility] Nucleated RBC/100 WBC (Bld) [Ratio] 0 % 0-5 [facility] MCHC Auto (RBC) [Mass/Vol]Or dered By: Renard Burgos on 06-20-2022 MCHC (RBC) [Mass/Vol] 33.1 g/dL 32-36 [facility] Platelets bldOrdered By: Lyubov Burgos on 06-20-2022 Platelets (Bld) [#/Vol] 207 10*3/uL 150-450 [facility] Absolute lymphocyte countOrd ered By: Renard Burgos on 06-13-2022 Lymphocytes Auto (Unsp spec) [#/Vol] 2.28 10*3/uL 0.83-4.51 [facility] Basophil percentageOrdered B y: Renard Burgos on 06-13-2022 Basophils/100 WBC (Bld) 0.5 % 0-1 [facility] Eosinophils/100 WBC (Bld) 0.4 % 0-5 [facility] Neutrophils (Bld) [#/Vol] 6.0 10*3/uL 2.0-7.7 [facility] Neutrophils/100 WBC (Bld) 65.6 % 47-70 [facility] WBC (Bld) [#/Vol] 9.2 10*3/uL 4.4-11.0 [facility] Blood erythrocytes count (nu mber/volume)Ordered By: Renard Burgos on 06-13-2022 RBC (Bld) [#/Vol] 4.55 10*6/uL 4.6-6.2 [facility] Blood hemoglobin measurement (mass/volume)Ordered By: Renard Burgos on 06-13-2022 Hemoglobin (Bld) [Mass/Vol] 13.7 g/dL 13.0-16.5 [facility] Blood lymphocytes/100 leukoc ytesOrdered By: Renard Burgos on 06-13-2022 Lymphocytes/100 WBC (Bld) 24.9 % 19-41 [facility] Blood monocytes/100 leukocyt esOrdered By: Renard Burgos on 06-13-2022 Monocytes/100 WBC (Bld) 8.2 % 0-10 [facility] Blood platelet mean volumeOr dered By: Renard Burgos on 06-13-2022 Platelet mean volume (Bld) [Entitic vol] 10.9 fL 6.2-12.0 [facility] Determination of erythrocyte mean corpuscular volume (MCV)Ordered By: Renard Burgos on 06-13-2022 MCV (RBC) [Entitic vol] 92.3 fL 80-94 [facility] [place] Hematocrit Auto (Bld) [Volum e fraction]Ordered By: Renard Burgos on 06-13-2022 Hematocrit (Bld) [Volume fraction] 42.0 % 40-54 [facility] Laboratory - Hematology and Cell countsOrdered By: Renard Burgos on 06-13-2022 Erythrocyte distribution width (RBC) [Entitic vol] 43.2 fL 35.1-43.9 [facility] Erythrocyte distribution width (RBC) [Ratio] 12.8 % 11.6-14.6 [facility] Immature granulocytes/100 WBC (Bld) 0.400 % 0.0-0.9 [facility] Comment on above: IG% - Immature Granu locytes (promyelocytes, myelocytes and metamyelocytes) > 1% indicates that a LEFT SHIFT is Present. MCH (RBC) [Entitic mass] 30.1 pg 27.0-32.0 [facility] Nucleated RBC/100 WBC (Bld) [Ratio] 0 % 0-5 [facility] MCHC Auto (RBC) [Mass/Vol]Or dered By: Renard Burgos on 06-13-2022 MCHC (RBC) [Mass/Vol] 32.6 g/dL 32-36 [facility] Platelets bldOrdered By: Lyubov Burgos on 06-13-2022 Platelets (Bld) [#/Vol] 203 10*3/uL 150-450 [facility] Absolute lymphocyte countOrd ered By: Renard Burgos on 06-06-2022 Lymphocytes Auto (Unsp spec) [#/Vol] 2.02 10*3/uL 0.83-4.51 [facility] Basophil percentageOrdered B y: Renard Burgos on 06-06-2022 Basophils/100 WBC (Bld) 0.5 % 0-1 [facility] Eosinophils/100 WBC (Bld) 0.7 % 0-5 [facility] Neutrophils (Bld) [#/Vol] 4.7 10*3/uL 2.0-7.7 [facility] Neutrophils/100 WBC (Bld) 63.3 % 47-70 [facility] WBC (Bld) [#/Vol] 7.4 10*3/uL 4.4-11.0 [facility] Blood erythrocytes count (nu mber/volume)Ordered By: Renard Burgos on 06-06-2022 RBC (Bld) [#/Vol] 4.57 10*6/uL 4.6-6.2 [facility] Blood hemoglobin measurement (mass/volume)Ordered By: Renard Burgos on 06-06-2022 Hemoglobin (Bld) [Mass/Vol] 14.0 g/dL 13.0-16.5 [facility] Blood lymphocytes/100 leukoc ytesOrdered By: Renard Burgos on 06-06-2022 Lymphocytes/100 WBC (Bld) 27.2 % 19-41 [facility] Blood monocytes/100 leukocyt esOrdered By: Renard Burgos on 06-06-2022 Monocytes/100 WBC (Bld) 7.9 % 0-10 [facility] Blood platelet mean volumeOr dered By: Renard Burgos on 06-06-2022 Platelet mean volume (Bld) [Entitic vol] 10.7 fL 6.2-12.0 [facility] Determination of erythrocyte mean corpuscular volume (MCV)Ordered By: Renard Burgos on 06-06-2022 MCV (RBC) [Entitic vol] 90.2 fL 80-94 [facility] Hematocrit Auto (Bld) [Volum e fraction]Ordered By: Renard Burgos on 06-06-2022 Hematocrit (Bld) [Volume fraction] 41.2 % 40-54 [facility] Laboratory - Hematology and Cell countsOrdered By: Renard Burgos on 06-06-2022 Erythrocyte distribution width (RBC) [Entitic vol] 41.5 fL 35.1-43.9 [facility] Erythrocyte distribution width (RBC) [Ratio] 12.7 % 11.6-14.6 [facility] Immature granulocytes/100 WBC (Bld) 0.400 % 0.0-0.9 [facility] Comment on above: IG% - Immature Granu locytes (promyelocytes, myelocytes and metamyelocytes) > 1% indicates that a LEFT SHIFT is Present. MCH (RBC) [Entitic mass] 30.6 pg 27.0-32.0 [facility] Nucleated RBC/100 WBC (Bld) [Ratio] 0 % 0-5 [facility] MCHC Auto (RBC) [Mass/Vol]Or dered By: Renard Burgos on 06-06-2022 MCHC (RBC) [Mass/Vol] 34.0 g/dL 32-36 [facility] Platelets bldOrdered By: Lyubov Burgos on 02-06-2023 Platelets (Bld) [#/Vol] 197 10*3/uL 150-450 [facility] Absolute lymphocyte countOrd ered By: Renard Burgos on 05-30-2022 Lymphocytes Auto (Unsp spec) [#/Vol] 2.32 10*3/uL 0.83-4.51 [facility] Basophil percentageOrdered B y: Renard Burgos on 05-30-2022 Basophils/100 WBC (Bld) 0.4 % 0-1 [facility] Eosinophils/100 WBC (Bld) 0.5 % 0-5 [facility] Neutrophils (Bld) [#/Vol] 5.2 10*3/uL 2.0-7.7 [facility] Neutrophils/100 WBC (Bld) 62.6 % 47-70 [facility] WBC (Bld) [#/Vol] 8.3 10*3/uL 4.4-11.0 [facility] Blood erythrocytes count (nu mber/volume)Ordered By: Renard Burgos on 05-30-2022 RBC (Bld) [#/Vol] 4.87 10*6/uL 4.6-6.2 [facility] Blood hemoglobin measurement (mass/volume)Ordered By: Renard Burgos on 05-30-2022 Hemoglobin (Bld) [Mass/Vol] 14.6 g/dL 13.0-16.5 [facility] Blood lymphocytes/100 leukoc ytesOrdered By: Renard Burgos on 05-30-2022 Lymphocytes/100 WBC (Bld) 27.9 % 19-41 [facility] Blood monocytes/100 leukocyt esOrdered By: Renard Burgos on 05-30-2022 Monocytes/100 WBC (Bld) 8.0 % 0-10 [facility] Blood platelet mean volumeOr dered By: Renard Burgos on 05-30-2022 Platelet mean volume (Bld) [Entitic vol] 10.9 fL 6.2-12.0 [facility] Determination of erythrocyte mean corpuscular volume (MCV)Ordered By: Renard Burgos on 05-30-2022 MCV (RBC) [Entitic vol] 91.6 fL 80-94 [facility] Hematocrit Auto (Bld) [Volum e fraction]Ordered By: Renard Burgos on 05-30-2022 Hematocrit (Bld) [Volume fraction] 44.6 % 40-54 [facility] Laboratory - Hematology and Cell countsOrdered By: Renard Burgos on 05-30-2022 Erythrocyte distribution width (RBC) [Entitic vol] 42.4 fL 35.1-43.9 [facility] Erythrocyte distribution width (RBC) [Ratio] 12.6 % 11.6-14.6 [facility] Immature granulocytes/100 WBC (Bld) 0.600 % 0.0-0.9 [facility] Comment on above: IG% - Immature Granu locytes (promyelocytes, myelocytes and metamyelocytes) > 1% indicates that a LEFT SHIFT is Present. MCH (RBC) [Entitic mass] 30.0 pg 27.0-32.0 [facility] Nucleated RBC/100 WBC (Bld) [Ratio] 0 % 0-5 [facility] MCHC Auto (RBC) [Mass/Vol]Or dered By: Renard Burgos on 05-30-2022 MCHC (RBC) [Mass/Vol] 32.7 g/dL 32-36 [facility] Platelets bldOrdered By: Lyubvo Burgos on 05-30-2022 Platelets (Bld) [#/Vol] 213 10*3/uL 150-450 [facility] Absolute lymphocyte countOrd ered By: Renard Burgos on 05-23-2022 Lymphocytes Auto (Unsp spec) [#/Vol] 2.07 10*3/uL 0.83-4.51 [facility] Basophil percentageOrdered B y: Renard Burgos on 05-23-2022 Basophils/100 WBC (Bld) 0.5 % 0-1 W [facility] Eosinophils/100 WBC (Bld) 0.4 % 0-5 [facility] Neutrophils (Bld) [#/Vol] 5.7 10*3/uL 2.0-7.7 [facility] Neutrophils/100 WBC (Bld) 66.5 % 47-70 [facility] WBC (Bld) [#/Vol] 8.5 10*3/uL 4.4-11.0 [facility] Blood erythrocytes count (nu mber/volume)Ordered By: Renard Burgos on 05-23-2022 RBC (Bld) [#/Vol] 4.75 10*6/uL 4.6-6.2 [facility] Blood hemoglobin measurement (mass/volume)Ordered By: Renard Burgos on 05-23-2022 Hemoglobin (Bld) [Mass/Vol] 14.3 g/dL 13.0-16.5 [facility] Blood lymphocytes/100 leukoc ytesOrdered By: Renard Burgos on 05-23-2022 Lymphocytes/100 WBC (Bld) 24.4 % 19-41 [facility] Blood monocytes/100 leukocyt esOrdered By: Renard Burgos on 05-23-2022 Monocytes/100 WBC (Bld) 7.7 % 0-10 W [facility] Blood platelet mean volumeOr dered By: Renard Burgos on 05-23-2022 Platelet mean volume (Bld) [Entitic vol] 11.1 fL 6.2-12.0 [facility] Determination of erythrocyte mean corpuscular volume (MCV)Ordered By: Renard Burgos on 05-23-2022 MCV (RBC) [Entitic vol] 90.9 fL 80-94 W [facility] Hematocrit Auto (Bld) [Volum e fraction]Ordered By: Renard Burgos on 05-23-2022 Hematocrit (Bld) [Volume fraction] 43.2 % 40-54 [facility] Laboratory - Hematology and Cell countsOrdered By: Renard Burgos on 05-23-2022 Erythrocyte distribution width (RBC) [Entitic vol] 41.7 fL 35.1-43.9 [facility] Erythrocyte distribution width (RBC) [Ratio] 12.5 % 11.6-14.6 [facility] Immature granulocytes/100 WBC (Bld) 0.500 % 0.0-0.9 [facility] Comment on above: IG% - Immature Granu locytes (promyelocytes, myelocytes and metamyelocytes) > 1% indicates that a LEFT SHIFT is Present. MCH (RBC) [Entitic mass] 30.1 pg 27.0-32.0 [facility] Nucleated RBC/100 WBC (Bld) [Ratio] 0 % 0-5 [facility] MCHC Auto (RBC) [Mass/Vol]Or dered By: Renard Burgos on 05-23-2022 MCHC (RBC) [Mass/Vol] 33.1 g/dL 32-36 [facility] Platelets bldOrdered By: Lyubov Burgos on 05-23-2022 Platelets (Bld) [#/Vol] 213 10*3/uL 150-450 [facility] No Panel Informationon 05-20 Dejah Hazel DO 05/20/2022 7:32 PM Feeding Tube Replacement Performed by: Dejah Hazel DO Authorized by: Abelardo Rios DO Consent: Consent obtained: Verbal Consent given by: Patient [place] protocol: Patient identity confirmed: Verbally with patient [...] Procedure completion: Tolerated well, no immediate complications [employer] XR Abdomen Single viewon G-tube position is within the stomach. No evidence of contrast extravasation. Report Dictated on Electronically Signed By: Jason Tran Electronically Signed Date/Time: 05/20/2022 7:38 PM EST [employer] Patient Name: KATHYA HOOPER Exam Date/Time: 05/20/2022 19:18 Procedure: XR ABDOMEN 1 VIEW Ordering Provider: RIOS TYLER Reason For Exam: SUPINE ABDOMEN (KUB) CLINICAL INDICATION: confirm placement of G tube A supine plain film of the abdomen was obtained. Repeat abdominal radiographs following hand injection of enteric contrast via the patient's enteric tube. (Gastrografin 30 mL). COMPARISON: None FINDINGS: On the [employer] image, no dilated bowel loops are identified. Feeding tube overlies the epigastric region of the abdomen. On the postcontrast images, there is a small amount of enteric contrast in the stomach and contrast is present throughout the proximal duodenum. No extravasated contrast is evident. [facility] Jason Tran M D - 05/20/2022 Patient [...] 30 mL). COMPARISON: None FINDINGS: On the director of veterans affairs image, no dilated bowel loops are identified. [...] Electronically Signed Date/Time: 05/20/2022 7:38 PM EST [facility] Radiology Study observation (narrative) [facility] XR Abdomen Single viewOrdere d By: Jason Tran on 05-20-2022 [facility] [employer] Work Phone: Absolute lymphocyte countOrd ered By: Renard Burgos on 05-16-2022 Lymphocytes Auto (Unsp spec) [#/Vol] 2.06 10*3/uL 0.83-4.51 [facility] Basophil percentageOrdered B y: Renard Burgos on 05-16-2022 Basophils/100 WBC (Bld) 0.6 % 0-1 W [facility] Eosinophils/100 WBC (Bld) 0.6 % 0-5 [facility] Neutrophils (Bld) [#/Vol] 4.4 10*3/uL 2.0-7.7 [facility] Neutrophils/100 WBC (Bld) 61.2 % 47-70 [facility] WBC (Bld) [#/Vol] 7.1 10*3/uL 4.4-11.0 [facility] Blood erythrocytes count (nu mber/volume)Ordered By: Renard Burgos on 05-16-2022 RBC (Bld) [#/Vol] 4.58 10*6/uL 4.6-6.2 [facility] Blood hemoglobin measurement (mass/volume)Ordered By: Renard Burgos on 05-16-2022 Hemoglobin (Bld) [Mass/Vol] 13.9 g/dL 13.0-16.5 [facility] Blood lymphocytes/100 leukoc ytesOrdered By: Renard Burgos on 05-16-2022 Lymphocytes/100 WBC (Bld) 29.0 % 19-41 [facility] Blood monocytes/100 leukocyt esOrdered By: Renard Burgos on 05-16-2022 Monocytes/100 WBC (Bld) 8.2 % 0-10 W [facility] Blood platelet mean volumeOr dered By: Renard Burgos on 05-16-2022 Platelet mean volume (Bld) [Entitic vol] 11.1 fL 6.2-12.0 [facility] Determination of erythrocyte mean corpuscular volume (MCV)Ordered By: Renard Burgos on 05-16-2022 MCV (RBC) [Entitic vol] 91.5 fL 80-94 W [facility] Hematocrit Auto (Bld) [Volum e fraction]Ordered By: Renard Burgos on 05-16-2022 Hematocrit (Bld) [Volume fraction] 41.9 % 40-54 [facility] Laboratory - Hematology and Cell countsOrdered By: Renard Burgos on 05-16-2022 Erythrocyte distribution width (RBC) [Entitic vol] 41.3 fL 35.1-43.9 [facility] Erythrocyte distribution width (RBC) [Ratio] 12.5 % 11.6-14.6 [facility] Immature granulocytes/100 WBC (Bld) 0.400 % 0.0-0.9 [facility] Comment on above: IG% - Immature Granu locytes (promyelocytes, myelocytes and metamyelocytes) > 1% indicates that a LEFT SHIFT is Present. MCH (RBC) [Entitic mass] 30.3 pg 27.0-32.0 [facility] Nucleated RBC/100 WBC (Bld) [Ratio] 0 % 0-5 [facility] MCHC Auto (RBC) [Mass/Vol]Or dered By: Renard Burgos on 05-16-2022 MCHC (RBC) [Mass/Vol] 33.2 g/dL 32-36 [facility] Platelets bldOrdered By: Lyubov Burgos on 05-16-2022 Platelets (Bld) [#/Vol] 205 10*3/uL 150-450 [facility] Absolute lymphocyte countOrd ered By: Renard Burgos on 05-09-2022 Lymphocytes Auto (Unsp spec) [#/Vol] 1.92 10*3/uL 0.83-4.51 [facility] Basophil percentageOrdered B y: Renard Burgos on 05-09-2022 Basophils/100 WBC (Bld) 0.7 % 0-1 W [facility] Eosinophils/100 WBC (Bld) 0.7 % 0-5 [facility] Neutrophils (Bld) [#/Vol] 4.3 10*3/uL 2.0-7.7 [facility] Neutrophils/100 WBC (Bld) 60.9 % 47-70 [facility] WBC (Bld) [#/Vol] 7.1 10*3/uL 4.4-11.0 [facility] Blood erythrocytes count (nu mber/volume)Ordered By: Renard Burgos on 05-09-2022 RBC (Bld) [#/Vol] 4.67 10*6/uL 4.6-6.2 [facility] Blood hemoglobin measurement (mass/volume)Ordered By: Renard Burgos on 05-09-2022 Hemoglobin (Bld) [Mass/Vol] 14.1 g/dL 13.0-16.5 [facility] Blood lymphocytes/100 leukoc ytesOrdered By: Renard Burgos on 05-09-2022 Lymphocytes/100 WBC (Bld) 27.2 % 19-41 [facility] Blood monocytes/100 leukocyt esOrdered By: Renard Burgos on 05-09-2022 Monocytes/100 WBC (Bld) 10.2 % 0-10 W [facility] Blood platelet mean volumeOr dered By: Renard Burgos on 05-09-2022 Platelet mean volume (Bld) [Entitic vol] 11.5 fL 6.2-12.0 [facility] Determination of erythrocyte mean corpuscular volume (MCV)Ordered By: eRnard Burgos on 05-09-2022 MCV (RBC) [Entitic vol] 91.0 fL 80-94 W [facility] Hematocrit Auto (Bld) [Volum e fraction]Ordered By: Renard Burgos on 05-09-2022 Hematocrit (Bld) [Volume fraction] 42.5 % 40-54 [facility] Laboratory - Hematology and Cell countsOrdered By: Renard Burgos on 05-09-2022 Erythrocyte distribution width (RBC) [Entitic vol] 41.4 fL 35.1-43.9 [facility] Erythrocyte distribution width (RBC) [Ratio] 12.7 % 11.6-14.6 [facility] Immature granulocytes/100 WBC (Bld) 0.300 % 0.0-0.9 [facility] Comment on above: IG% - Immature Granu locytes (promyelocytes, myelocytes and metamyelocytes) > 1% indicates that a LEFT SHIFT is Present. MCH (RBC) [Entitic mass] 30.2 pg 27.0-32.0 [facility] Nucleated RBC/100 WBC (Bld) [Ratio] 0.4 % 0-5 [facility] MCHC Auto (RBC) [Mass/Vol]Or dered By: Renard Burgos on 05-09-2022 MCHC (RBC) [Mass/Vol] 33.2 g/dL 32-36 [facility] Platelets bldOrdered By: Lyubov Burgos on 05-09-2022 Platelets (Bld) [#/Vol] 202 10*3/uL 150-450 [facility] Absolute lymphocyte countOrd ered By: Renard Burgos on 05-03-2022 Lymphocytes Auto (Unsp spec) [#/Vol] 1.86 10*3/uL 0.83-4.51 [facility] Basophil percentageOrdered B y: Renard Burgos on 05-03-2022 Basophils/100 WBC (Bld) 0.3 % 0-1 [facility] Eosinophils/100 WBC (Bld) 0.3 % 0-5 [facility] Neutrophils (Bld) [#/Vol] 6.4 10*3/uL 2.0-7.7 [facility] Neutrophils/100 WBC (Bld) 71.9 % 47-70 [facility] WBC (Bld) [#/Vol] 8.9 10*3/uL 4.4-11.0 [facility] Blood erythrocytes count (nu mber/volume)Ordered By: Renard Burgos on 05-03-2022 RBC (Bld) [#/Vol] 4.65 10*6/uL 4.6-6.2 [facility] Blood hemoglobin measurement (mass/volume)Ordered By: Renard Burgos on 05-03-2022 Hemoglobin (Bld) [Mass/Vol] 14.5 g/dL 13.0-16.5 [facility] Blood lymphocytes/100 leukoc ytesOrdered By: Renard Burgos on 05-03-2022 Lymphocytes/100 WBC (Bld) 20.9 % 19-41 [facility] Blood monocytes/100 leukocyt esOrdered By: Renard Burgos on 05-03-2022 Monocytes/100 WBC (Bld) 6.2 % 0-10 [facility] Blood platelet mean volumeOr dered By: Renard Burgos on 05-03-2022 Platelet mean volume (Bld) [Entitic vol] 11.1 fL 6.2-12.0 [facility] Determination of erythrocyte mean corpuscular volume (MCV)Ordered By: Renard Burgos on 05-03-2022 MCV (RBC) [Entitic vol] 90.1 fL 80-94 [facility] Hematocrit Auto (Bld) [Volum e fraction]Ordered By: Renard Burgos on 05-03-2022 Hematocrit (Bld) [Volume fraction] 41.9 % 40-54 [facility] Laboratory - Hematology and Cell countsOrdered By: Renard Burgos on 05-03-2022 Erythrocyte distribution width (RBC) [Entitic vol] 39.7 fL 35.1-43.9 [facility] Erythrocyte distribution width (RBC) [Ratio] 12.2 % 11.6-14.6 [facility] Immature granulocytes/100 WBC (Bld) 0.400 % 0.0-0.9 [facility] Comment on above: IG% - Immature Granu locytes (promyelocytes, myelocytes and metamyelocytes) > 1% indicates that a LEFT SHIFT is Present. MCH (RBC) [Entitic mass] 31.2 pg 27.0-32.0 [facility] Nucleated RBC/100 WBC (Bld) [Ratio] 0 % 0-5 [facility] MCHC Auto (RBC) [Mass/Vol]Or dered By: Renard Burgos on 05-03-2022 MCHC (RBC) [Mass/Vol] 34.6 g/dL 32-36 [facility] Platelets bldOrdered By: Lyubov Burgos on 05-03-2022 Platelets (Bld) [#/Vol] 203 10*3/uL 150-450 [facility] Absolute lymphocyte countOrd ered By: Renard Burgos on 04-26-2022 Lymphocytes Auto (Unsp spec) [#/Vol] 2.79 10*3/uL 0.83-4.51 [facility] Basophil percentageOrdered B y: Renard Burgos on 04-26-2022 Basophils/100 WBC (Bld) 0.4 % 0-1 [facility] Eosinophils/100 WBC (Bld) 0.4 % 0-5 [facility] Neutrophils (Bld) [#/Vol] 5.9 10*3/uL 2.0-7.7 [facility] Neutrophils/100 WBC (Bld) 60.9 % 47-70 [facility] WBC (Bld) [#/Vol] 9.7 10*3/uL 4.4-11.0 [facility] Blood erythrocytes count (nu mber/volume)Ordered By: Renard Burgos on 04-26-2022 RBC (Bld) [#/Vol] 4.92 10*6/uL 4.6-6.2 [facility] Blood hemoglobin measurement (mass/volume)Ordered By: Renard Burgos on 04-26-2022 Hemoglobin (Bld) [Mass/Vol] 15.2 g/dL 13.0-16.5 [facility] Blood lymphocytes/100 leukoc ytesOrdered By: Renard Burgos on 04-26-2022 Lymphocytes/100 WBC (Bld) 28.9 % 19-41 [facility] Blood monocytes/100 leukocyt esOrdered By: Renard Burgos on 04-26-2022 Monocytes/100 WBC (Bld) 9.0 % 0-10 [facility] Blood platelet mean volumeOr dered By: Renard Burgos on 04-26-2022 Platelet mean volume (Bld) [Entitic vol] 11.0 fL 6.2-12.0 [facility] Determination of erythrocyte mean corpuscular volume (MCV)Ordered By: Renard Burgos on 04-26-2022 MCV (RBC) [Entitic vol] 92.3 fL 80-94 [facility] Hematocrit Auto (Bld) [Volum e fraction]Ordered By: Renard Burgos on 04-26-2022 Hematocrit (Bld) [Volume fraction] 45.4 % 40-54 [facility] Laboratory - Hematology and Cell countsOrdered By: Renard Burgos on 04-26-2022 Erythrocyte distribution width (RBC) [Entitic vol] 42.1 fL 35.1-43.9 [facility] Erythrocyte distribution width (RBC) [Ratio] 12.5 % 11.6-14.6 [facility] Immature granulocytes/100 WBC (Bld) 0.400 % 0.0-0.9 [facility] Comment on above: IG% - Immature Granu locytes (promyelocytes, myelocytes and metamyelocytes) > 1% indicates that a LEFT SHIFT is Present. MCH (RBC) [Entitic mass] 30.9 pg 27.0-32.0 [facility] Nucleated RBC/100 WBC (Bld) [Ratio] 0 % 0-5 [facility] MCHC Auto (RBC) [Mass/Vol]Or dered By: Renard Burgos on 04-26-2022 MCHC (RBC) [Mass/Vol] 33.5 g/dL 32-36 [facility] Platelets bldOrdered By: Lyubov Burgos on 04-26-2022 Platelets (Bld) [#/Vol] 178 10*3/uL 150-450 [facility] Absolute lymphocyte countOrd ered By: Renard Burgos on 04-18-2022 Lymphocytes Auto (Unsp spec) [#/Vol] 2.03 10*3/uL 0.83-4.51 [facility] Basophil percentageOrdered B y: Renard Burgos on 04-18-2022 Basophils/100 WBC (Bld) 0.6 % 0-1 [facility] Eosinophils/100 WBC (Bld) 0.6 % 0-5 [facility] Neutrophils (Bld) [#/Vol] 4.5 10*3/uL 2.0-7.7 [facility] Neutrophils/100 WBC (Bld) 62.0 % 47-70 [facility] WBC (Bld) [#/Vol] 7.2 10*3/uL 4.4-11.0 [facility] Blood erythrocytes count (nu mber/volume)Ordered By: Renard Burgos on 04-18-2022 RBC (Bld) [#/Vol] 4.67 10*6/uL 4.6-6.2 [facility] Blood hemoglobin measurement (mass/volume)Ordered By: Renard Burgos on 04-18-2022 Hemoglobin (Bld) [Mass/Vol] 14.5 g/dL 13.0-16.5 [facility] Blood lymphocytes/100 leukoc ytesOrdered By: Renard Burgos on 04-18-2022 Lymphocytes/100 WBC (Bld) 28.2 % 19-41 [facility] Blood monocytes/100 leukocyt esOrdered By: Renard Burgos on 04-18-2022 Monocytes/100 WBC (Bld) 8.2 % 0-10 [facility] Blood platelet mean volumeOr dered By: Renard Burgos on 04-18-2022 Platelet mean volume (Bld) [Entitic vol] 11.2 fL 6.2-12.0 [facility] Determination of erythrocyte mean corpuscular volume (MCV)Ordered By: Renard Burgos on 04-18-2022 MCV (RBC) [Entitic vol] 90.8 fL 80-94 [facility] Hematocrit Auto (Bld) [Volum e fraction]Ordered By: Renard Burgos on 04-18-2022 Hematocrit (Bld) [Volume fraction] 42.4 % 40-54 [facility] Laboratory - Hematology and Cell countsOrdered By: Renard Burgos on 04-18-2022 Erythrocyte distribution width (RBC) [Entitic vol] 41.1 fL 35.1-43.9 [facility] [place] Erythrocyte distribution width (RBC) [Ratio] 12.5 % 11.6-14.6 [facility] [place] Immature granulocytes/100 WBC (Bld) 0.400 % 0.0-0.9 [facility] [place] Comment on above: IG% - Immature Granu locytes (promyelocytes, myelocytes and metamyelocytes) > 1% indicates that a LEFT SHIFT is Present. MCH (RBC) [Entitic mass] 31.0 pg 27.0-32.0 [facility] [place] Nucleated RBC/100 WBC (Bld) [Ratio] 0 % 0-5 [facility] [place] MCHC Auto (RBC) [Mass/Vol]Or dered By: Renard Burgos on 04-18-2022 MCHC (RBC) [Mass/Vol] 34.2 g/dL 32-36 [facility] Platelets bldOrdered By: Lyubov Burgos on 04-18-2022 Platelets (Bld) [#/Vol] 196 10*3/uL 150-450 [facility] [place] Basophil percentageOrdered B y: Renard Burgos on 04-14-2022 Bilirubin [Mass/Vol] 0.40 mg/dL 0.20-1.00 [facility] Comment on above: For patients on eltr ombopag therapy, use of Dimension [place] TBIL is not recommended. Protein [Mass/Vol] 6.3 g/dL 6.4-8.2 [facility] Direct bilirubinOrdered By: Renard Burgos on 04-14-2022 Bilirubin.direct [Mass/Vol] 0.12 mg/dL 0.00-0.30 [facility] [place] Laboratory - Chemistry and C hemistry - challengeOrdered By: Renard Burgos on 04-14-2022 ALP [Catalytic activity/Vol] 117 U/L 45-117 [facility] [place] ALT [Catalytic activity/Vol] 26 U/L 16-61 [facility] [place] Globulin (S) [Mass/Vol] 3.2 g/dL 2.2-4.2 [facility] Serum or plasma albumin gordy urement (mass/volume)Ordered By: Renard Burgos on 04-14-2022 Albumin [Mass/Vol] 3.1 g/dL 3.2-5.0 [facility] Thin prep Papanicolaou smear with manual screeningOrdered By: Renard Burgos on 04-14-2022 Thin prep Papanicolaou smear with manual screening 12 U/L 15-37 [facility] [place] Absolute lymphocyte countOrd ered By: Renard Burgos on 04-11-2022 Lymphocytes Auto (Unsp spec) [#/Vol] 2.16 10*3/uL 0.83-4.51 [facility] [place] Basophil percentageOrdered B y: Renard Burgos on 04-11-2022 Basophils/100 WBC (Bld) 0.4 % 0-1 [facility] [place] Eosinophils/100 WBC (Bld) 0.4 % 0-5 [facility] [place] Neutrophils (Bld) [#/Vol] 4.2 10*3/uL 2.0-7.7 [facility] [place] Neutrophils/100 WBC (Bld) 61.1 % 47-70 [facility] [place] WBC (Bld) [#/Vol] 6.9 10*3/uL 4.4-11.0 [facility] Blood erythrocytes count (nu mber/volume)Ordered By: Renard Burgos on 04-11-2022 RBC (Bld) [#/Vol] 4.58 10*6/uL 4.6-6.2 [facility] Blood hemoglobin measurement (mass/volume)Ordered By: Renard Burgos on 04-11-2022 Hemoglobin (Bld) [Mass/Vol] 13.9 g/dL 13.0-16.5 [facility] [place] Blood lymphocytes/100 leukoc ytesOrdered By: Renard Burgos on 04-11-2022 Lymphocytes/100 WBC (Bld) 31.2 % 19-41 [facility] [place] Blood monocytes/100 leukocyt esOrdered By: Renard Burgos on 04-11-2022 Monocytes/100 WBC (Bld) 6.5 % 0-10 [facility] [place] Blood platelet mean volumeOr dered By: Renard Burgos on 04-11-2022 Platelet mean volume (Bld) [Entitic vol] 11.4 fL 6.2-12.0 [facility] [place] Determination of erythrocyte mean corpuscular volume (MCV)Ordered By: Renard Burgos on 04-11-2022 MCV (RBC) [Entitic vol] 91.9 fL 80-94 [facility] [place] Hematocrit Auto (Bld) [Volum e fraction]Ordered By: Renard Burgos on 04-11-2022 Hematocrit (Bld) [Volume fraction] 42.1 % 40-54 [facility] [place] Laboratory - Hematology and Cell countsOrdered By: Renard Burgos on 04-11-2022 Erythrocyte distribution width (RBC) [Entitic vol] 41.5 fL 35.1-43.9 [facility] [place] Erythrocyte distribution width (RBC) [Ratio] 12.3 % 11.6-14.6 [facility] [place] Immature granulocytes/100 WBC (Bld) 0.400 % 0.0-0.9 [facility] [place] Comment on above: IG% - Immature Granu locytes (promyelocytes, myelocytes and metamyelocytes) > 1% indicates that a LEFT SHIFT is Present. MCH (RBC) [Entitic mass] 30.3 pg 27.0-32.0 [facility] [place] Nucleated RBC/100 WBC (Bld) [Ratio] 0 % 0-5 [facility] [place] MCHC Auto (RBC) [Mass/Vol]Or dered By: Renard Burgos on 04-11-2022 MCHC (RBC) [Mass/Vol] 33.0 g/dL 32-36 [facility] Platelets bldOrdered By: Lyubov Burgos on 04-11-2022 Platelets (Bld) [#/Vol] 191 10*3/uL 150-450 [facility] [place] Absolute lymphocyte countOrd ered By: Renard Burgos on 04-04-2022 Lymphocytes Auto (Unsp spec) [#/Vol] 1.99 10*3/uL 0.83-4.51 [facility] [place] Basophil percentageOrdered B y: Renard Burgos on 04-04-2022 Basophils/100 WBC (Bld) 0.4 % 0-1 [facility] [place] Cholesterol [Mass/Vol] 158 mg/dL <200 [facility] Comment on above: <200 mg/dL Desirable 200-240 mg/dL Borderline >240 mg/dL High Risk Eosinophils/100 WBC (Bld) 0.4 % 0-5 [facility] [place] Neutrophils (Bld) [#/Vol] 4.9 10*3/uL 2.0-7.7 [facility] [place] Neutrophils/100 WBC (Bld) 64.2 % 47-70 [facility] [place] Triglyceride [Mass/Vol] 259 mg/dL <199 [facility] [place] Comment on above: The drugs N-Acetylcy steine and Metamizole may falsely depress this assay.Serum Triglycerides Reference Interval Normal <150 mg/dL Borderline high 150 - 199 mg/dL High 200 - 499 mg/dL Very High > or = 500 mg/dL WBC (Bld) [#/Vol] 7.7 10*3/uL 4.4-11.0 [facility] Blood erythrocytes count (nu mber/volume)Ordered By: Renard Burgos on 04-04-2022 RBC (Bld) [#/Vol] 4.63 10*6/uL 4.6-6.2 [facility] Blood hemoglobin measurement (mass/volume)Ordered By: Renard Burgos on 04-04-2022 Hemoglobin (Bld) [Mass/Vol] 14.1 g/dL 13.0-16.5 [facility] [place] Blood lymphocytes/100 leukoc ytesOrdered By: Renard Burgos on 04-04-2022 Lymphocytes/100 WBC (Bld) 25.9 % 19-41 [facility] [place] Blood monocytes/100 leukocyt esOrdered By: Renard Burgos on 04-04-2022 Monocytes/100 WBC (Bld) 8.6 % 0-10 [facility] [place] Blood platelet mean volumeOr dered By: Renard Burgos on 04-04-2022 Platelet mean volume (Bld) [Entitic vol] 11.3 fL 6.2-12.0 [facility] [place] Determination of erythrocyte mean corpuscular volume (MCV)Ordered By: Renard Burgos on 04-04-2022 MCV (RBC) [Entitic vol] 90.7 fL 80-94 [facility] Hematocrit Auto (Bld) [Volum e fraction]Ordered By: Renard Burgos on 04-04-2022 Hematocrit (Bld) [Volume fraction] 42.0 % 40-54 [facility] [place] Laboratory - Hematology and Cell countsOrdered By: Renard Burgos on 04-04-2022 Erythrocyte distribution width (RBC) [Entitic vol] 41.3 fL 35.1-43.9 [facility] [place] Erythrocyte distribution width (RBC) [Ratio] 12.4 % 11.6-14.6 [facility] [place] Immature granulocytes/100 WBC (Bld) 0.500 % 0.0-0.9 [facility] [place] Comment on above: IG% - Immature Granu locytes (promyelocytes, myelocytes and metamyelocytes) > 1% indicates that a LEFT SHIFT is Present. MCH (RBC) [Entitic mass] 30.5 pg 27.0-32.0 [facility] [place] Nucleated RBC/100 WBC (Bld) [Ratio] 0 % 0-5 [facility] [place] MCHC Auto (RBC) [Mass/Vol]Or dered By: Renard Burgos on 04-04-2022 MCHC (RBC) [Mass/Vol] 33.6 g/dL 32-36 [facility] Platelets bldOrdered By: Lyubov Burgos on 04-04-2022 Platelets (Bld) [#/Vol] 174 10*3/uL 150-450 [facility] [place] Serum or plasma cholesterol in HDL measurement (mass/volume)Ordered By: Renard Burgos on 04-04-2022 Cholesterol in HDL [Mass/Vol] 26 mg/dL >40 [facility] [place] Comment on above: The drugs N-Acetylcy steine and Metamizole may falsely depress this assay. Reference Range HDL <40 mg/dL Low HDL Cholesterol HDL >or= 60 mg/dL High HDL Cholesterol Serum or plasma cholesterol in VLDL measurement (mass/volume)Ordered By: Renard Burgos on 04-04-2022 Cholesterol in VLDL [Mass/Vol] 52 mg/dL 5-40 [facility] [place] Serum or plasma low density lipoprotein (LDL) cholesterol measurement (mass/volume)Ordered By: Renard Burgos on 04-04-2022 Cholesterol in LDL [Mass/Vol] 80 mg/dL 0-130 [facility] [place] Absolute lymphocyte countOrd ered By: Renard Burgos on 03-28-2022 Lymphocytes Auto (Unsp spec) [#/Vol] 2.25 10*3/uL 0.83-4.51 [facility] [place] Basophil percentageOrdered B y: Renard Burgos on 03-28-2022 Basophils/100 WBC (Bld) 0.6 % 0-1 [facility] [place] Eosinophils/100 WBC (Bld) 0.5 % 0-5 [facility] [place] Neutrophils (Bld) [#/Vol] 4.8 10*3/uL 2.0-7.7 [facility] [place] Neutrophils/100 WBC (Bld) 60.5 % 47-70 [facility] [place] WBC (Bld) [#/Vol] 8.0 10*3/uL 4.4-11.0 [facility] Blood erythrocytes count (nu mber/volume)Ordered By: Renard Burgos on 03-28-2022 RBC (Bld) [#/Vol] 4.69 10*6/uL 4.6-6.2 [facility] Blood hemoglobin measurement (mass/volume)Ordered By: Renard Burgos on 03-28-2022 Hemoglobin (Bld) [Mass/Vol] 14.4 g/dL 13.0-16.5 [facility] [place] Blood lymphocytes/100 leukoc ytesOrdered By: Renard Burgos on 03-28-2022 Lymphocytes/100 WBC (Bld) 28.1 % 19-41 [facility] [place] Blood monocytes/100 leukocyt esOrdered By: Renard Burgos on 03-28-2022 Monocytes/100 WBC (Bld) 9.8 % 0-10 [facility] Blood platelet mean volumeOr dered By: Renard Burgos on 03-28-2022 Platelet mean volume (Bld) [Entitic vol] 10.8 fL 6.2-12.0 [facility] [place] Determination of erythrocyte mean corpuscular volume (MCV)Ordered By: Renard Burgos on 03-28-2022 MCV (RBC) [Entitic vol] 92.1 fL 80-94 [facility] [place] Hematocrit Auto (Bld) [Volum e fraction]Ordered By: Renard Burgos on 03-28-2022 Hematocrit (Bld) [Volume fraction] 43.2 % 40-54 [facility] [place] Laboratory - Hematology and Cell countsOrdered By: Renard Burgos on 03-28-2022 Erythrocyte distribution width (RBC) [Entitic vol] 42.0 fL 35.1-43.9 [facility] [place] Erythrocyte distribution width (RBC) [Ratio] 12.5 % 11.6-14.6 [facility] [place] Immature granulocytes/100 WBC (Bld) 0.500 % 0.0-0.9 [facility] [place] Comment on above: IG% - Immature Granu locytes (promyelocytes, myelocytes and metamyelocytes) > 1% indicates that a LEFT SHIFT is Present. MCH (RBC) [Entitic mass] 30.7 pg 27.0-32.0 [facility] [place] Nucleated RBC/100 WBC (Bld) [Ratio] 0 % 0-5 [facility] [place] MCHC Auto (RBC) [Mass/Vol]Or dered By: Renard Burgos on 03-28-2022 MCHC (RBC) [Mass/Vol] 33.3 g/dL 32-36 [facility] Platelets bldOrdered By: Lyubov Burgos on 03-28-2022 Platelets (Bld) [#/Vol] 207 10*3/uL 150-450 [facility] [place] Absolute lymphocyte countOrd ered By: Renard Burgos on 03-21-2022 Lymphocytes Auto (Unsp spec) [#/Vol] 1.98 10*3/uL 0.83-4.51 [facility] [place] Basophil percentageOrdered B y: Renard Burgos on 03-21-2022 Basophils/100 WBC (Bld) 0.5 % 0-1 [facility] [place] Eosinophils/100 WBC (Bld) 0.5 % 0-5 [facility] [place] Neutrophils (Bld) [#/Vol] 4.9 10*3/uL 2.0-7.7 [facility] [place] Neutrophils/100 WBC (Bld) 63.6 % 47-70 [facility] [place] WBC (Bld) [#/Vol] 7.7 10*3/uL 4.4-11.0 [facility] Blood erythrocytes count (nu mber/volume)Ordered By: Renard Burgos on 03-21-2022 RBC (Bld) [#/Vol] 4.82 10*6/uL 4.6-6.2 [facility] Blood hemoglobin measurement (mass/volume)Ordered By: Renard Burgos on 03-21-2022 Hemoglobin (Bld) [Mass/Vol] 14.9 g/dL 13.0-16.5 [facility] [place] Blood lymphocytes/100 leukoc ytesOrdered By: Renard Burgos on 03-21-2022 Lymphocytes/100 WBC (Bld) 25.7 % 19-41 [facility] [place] Blood monocytes/100 leukocyt esOrdered By: Renard Burgos on 03-21-2022 Monocytes/100 WBC (Bld) 9.3 % 0-10 [facility] [place] Blood platelet mean volumeOr dered By: Renard Burgos on 03-21-2022 Platelet mean volume (Bld) [Entitic vol] 10.8 fL 6.2-12.0 [facility] [place] Determination of erythrocyte mean corpuscular volume (MCV)Ordered By: Renard Burgos on 03-21-2022 MCV (RBC) [Entitic vol] 90.7 fL 80-94 [facility] [place] Hematocrit Auto (Bld) [Volum e fraction]Ordered By: Renard Burgos on 03-21-2022 Hematocrit (Bld) [Volume fraction] 43.7 % 40-54 [facility] [place] Laboratory - Hematology and Cell countsOrdered By: Renard Burgos on 03-21-2022 Erythrocyte distribution width (RBC) [Entitic vol] 40.8 fL 35.1-43.9 [facility] [place] Erythrocyte distribution width (RBC) [Ratio] 12.4 % 11.6-14.6 [facility] [place] Immature granulocytes/100 WBC (Bld) 0.400 % 0.0-0.9 [facility] [place] Comment on above: IG% - Immature Granu locytes (promyelocytes, myelocytes and metamyelocytes) > 1% indicates that a LEFT SHIFT is Present. MCH (RBC) [Entitic mass] 30.9 pg 27.0-32.0 [facility] [place] Nucleated RBC/100 WBC (Bld) [Ratio] 0 % 0-5 [facility] [place] MCHC Auto (RBC) [Mass/Vol]Or dered By: Renard Burgos on 03-21-2022 MCHC (RBC) [Mass/Vol] 34.1 g/dL 32-36 [facility] Platelets bldOrdered By: Lyubov Burgos on 03-21-2022 Platelets (Bld) [#/Vol] 186 10*3/uL 150-450 [facility] [place] Absolute lymphocyte countOrd ered By: Renard Burgos on 03-14-2022 Lymphocytes Auto (Unsp spec) [#/Vol] 2.18 10*3/uL 0.83-4.51 [facility] [place] Basophil percentageOrdered B y: Renard Burgos on 03-14-2022 Basophils/100 WBC (Bld) 0.4 % 0-1 [facility] [place] Eosinophils/100 WBC (Bld) 0.6 % 0-5 [facility] [place] Neutrophils (Bld) [#/Vol] 4.3 10*3/uL 2.0-7.7 [facility] [place] Neutrophils/100 WBC (Bld) 58.8 % 47-70 [facility] [place] WBC (Bld) [#/Vol] 7.3 10*3/uL 4.4-11.0 [facility] Blood erythrocytes count (nu mber/volume)Ordered By: Renard Burgos on 03-14-2022 RBC (Bld) [#/Vol] 4.80 10*6/uL 4.6-6.2 [facility] Blood hemoglobin measurement (mass/volume)Ordered By: Renard Burgos on 03-14-2022 Hemoglobin (Bld) [Mass/Vol] 14.5 g/dL 13.0-16.5 [facility] [place] Blood lymphocytes/100 leukoc ytesOrdered By: Renard Burgos on 03-14-2022 Lymphocytes/100 WBC (Bld) 30.1 % 19-41 [facility] [place] Blood monocytes/100 leukocyt esOrdered By: Renard Burgos on 03-14-2022 Monocytes/100 WBC (Bld) 9.5 % 0-10 [facility] [place] Blood platelet mean volumeOr dered By: Renard Burgos on 03-14-2022 Platelet mean volume (Bld) [Entitic vol] 11.0 fL 6.2-12.0 [facility] [place] Determination of erythrocyte mean corpuscular volume (MCV)Ordered By: Renard Burgos on 03-14-2022 MCV (RBC) [Entitic vol] 91.5 fL 80-94 [facility] [place] Hematocrit Auto (Bld) [Volum e fraction]Ordered By: Renard Burgos on 03-14-2022 Hematocrit (Bld) [Volume fraction] 43.9 % 40-54 [facility] [place] Laboratory - Hematology and Cell countsOrdered By: Renard Burgos on 03-14-2022 Erythrocyte distribution width (RBC) [Entitic vol] 41.1 fL 35.1-43.9 [facility] [place] Erythrocyte distribution width (RBC) [Ratio] 12.4 % 11.6-14.6 [facility] [place] Immature granulocytes/100 WBC (Bld) 0.600 % 0.0-0.9 [facility] [place] Comment on above: IG% - Immature Granu locytes (promyelocytes, myelocytes and metamyelocytes) > 1% indicates that a LEFT SHIFT is Present. MCH (RBC) [Entitic mass] 30.2 pg 27.0-32.0 [facility] [place] Nucleated RBC/100 WBC (Bld) [Ratio] 0 % 0-5 [facility] [place] MCHC Auto (RBC) [Mass/Vol]Or dered By: Renard Burgos on 03-14-2022 MCHC (RBC) [Mass/Vol] 33.0 g/dL 32-36 [facility] Platelets bldOrdered By: Lyubov Burgos on 03-14-2022 Platelets (Bld) [#/Vol] 201 10*3/uL 150-450 [facility] [place] Absolute lymphocyte countOrd ered By: Renard Burgos on 2022 Lymphocytes Auto (Unsp spec) [#/Vol] 1.97 10*3/uL 0.83-4.51 [facility] [place] Basophil percentageOrdered B y: Renard Burgos on 2022 Basophils/100 WBC (Bld) 0.6 % 0-1 [facility] [place] Eosinophils/100 WBC (Bld) 0.4 % 0-5 [facility] [place] Neutrophils (Bld) [#/Vol] 4.3 10*3/uL 2.0-7.7 [facility] [place] Neutrophils/100 WBC (Bld) 61.3 % 47-70 [facility] [place] WBC (Bld) [#/Vol] 7.0 10*3/uL 4.4-11.0 [facility] Blood erythrocytes count (nu mber/volume)Ordered By: Renard Burgos on 2022 RBC (Bld) [#/Vol] 4.78 10*6/uL 4.6-6.2 [facility] Blood hemoglobin measurement (mass/volume)Ordered By: Renard Burgos on 2022 Hemoglobin (Bld) [Mass/Vol] 14.4 g/dL 13.0-16.5 [facility] [place] Blood lymphocytes/100 leukoc ytesOrdered By: Renard Burgos on 2022 Lymphocytes/100 WBC (Bld) 28.3 % 19-41 [facility] [place] Blood monocytes/100 leukocyt esOrdered By: Renard Burgos on 2022 Monocytes/100 WBC (Bld) 9.1 % 0-10 [facility] [place] Blood platelet mean volumeOr dered By: Renard Burgos on 2022 Platelet mean volume (Bld) [Entitic vol] 11.1 fL 6.2-12.0 [facility] [place] Determination of erythrocyte mean corpuscular volume (MCV)Ordered By: Renard Burgos on 2022 MCV (RBC) [Entitic vol] 91.2 fL 80-94 [facility] [place] Hematocrit Auto (Bld) [Volum e fraction]Ordered By: Renard Burgos on 2022 Hematocrit (Bld) [Volume fraction] 43.6 % 40-54 [facility] [place] Laboratory - Hematology and Cell countsOrdered By: Renard Burgos on 2022 Erythrocyte distribution width (RBC) [Entitic vol] 42.0 fL 35.1-43.9 [facility] [place] Erythrocyte distribution width (RBC) [Ratio] 12.6 % 11.6-14.6 [facility] [place] Immature granulocytes/100 WBC (Bld) 0.300 % 0.0-0.9 [facility] [place] Comment on above: IG% - Immature Granu locytes (promyelocytes, myelocytes and metamyelocytes) > 1% indicates that a LEFT SHIFT is Present. MCH (RBC) [Entitic mass] 30.1 pg 27.0-32.0 [facility] [place] Nucleated RBC/100 WBC (Bld) [Ratio] 0 % 0-5 [facility] [place] MCHC Auto (RBC) [Mass/Vol]Or dered By: Renard Burgos on 2022 MCHC (RBC) [Mass/Vol] 33.0 g/dL 32-36 [facility] Platelets bldOrdered By: Lyubov Bugros on 2022 Platelets (Bld) [#/Vol] 210 10*3/uL 150-450 [facility] [place] Absolute lymphocyte countOrd ered By: Renard Burgos on 02-28-2022 Lymphocytes Auto (Unsp spec) [#/Vol] 1.85 10*3/uL 0.83-4.51 [facility] [place] Basophil percentageOrdered B y: Renard Burgos on 02-28-2022 Basophils/100 WBC (Bld) 0.4 % 0-1 [facility] [place] Eosinophils/100 WBC (Bld) 0.4 % 0-5 [facility] [place] Neutrophils (Bld) [#/Vol] 5.3 10*3/uL 2.0-7.7 [facility] [place] Neutrophils/100 WBC (Bld) 67.8 % 47-70 [facility] [place] WBC (Bld) [#/Vol] 7.8 10*3/uL 4.4-11.0 [facility] Blood erythrocytes count (nu mber/volume)Ordered By: Renard Burgos on 02-28-2022 RBC (Bld) [#/Vol] 4.58 10*6/uL 4.6-6.2 [facility] Blood hemoglobin measurement (mass/volume)Ordered By: Renard Burgos on 02-28-2022 Hemoglobin (Bld) [Mass/Vol] 14.3 g/dL 13.0-16.5 [facility] [place] Blood lymphocytes/100 leukoc ytesOrdered By: Renard Burgos on 02-28-2022 Lymphocytes/100 WBC (Bld) 23.8 % 19-41 [facility] [place] Blood monocytes/100 leukocyt esOrdered By: Renard Burgos on 02-28-2022 Monocytes/100 WBC (Bld) 7.2 % 0-10 [facility] [place] Blood platelet mean volumeOr dered By: Renard Burgos on 02-28-2022 Platelet mean volume (Bld) [Entitic vol] 10.8 fL 6.2-12.0 [facility] [place] Determination of erythrocyte mean corpuscular volume (MCV)Ordered By: Renard Burgos on 02-28-2022 MCV (RBC) [Entitic vol] 91.5 fL 80-94 [facility] [place] Hematocrit Auto (Bld) [Volum e fraction]Ordered By: Renard Burgos on 02-28-2022 Hematocrit (Bld) [Volume fraction] 41.9 % 40-54 [facility] [place] Laboratory - Hematology and Cell countsOrdered By: Renard Burgos on 02-28-2022 Erythrocyte distribution width (RBC) [Entitic vol] 42.2 fL 35.1-43.9 [facility] [place] Erythrocyte distribution width (RBC) [Ratio] 12.7 % 11.6-14.6 [facility] [place] Immature granulocytes/100 WBC (Bld) 0.400 % 0.0-0.9 [facility] [place] Comment on above: IG% - Immature Granu locytes (promyelocytes, myelocytes and metamyelocytes) > 1% indicates that a LEFT SHIFT is Present. MCH (RBC) [Entitic mass] 31.2 pg 27.0-32.0 [facility] [place] Nucleated RBC/100 WBC (Bld) [Ratio] 0 % 0-5 [facility] [place] MCHC Auto (RBC) [Mass/Vol]Or dered By: Renard Burgos on 02-28-2022 MCHC (RBC) [Mass/Vol] 34.1 g/dL 32-36 [facility] Platelets bldOrdered By: Lyubov Burgos on 02-28-2022 Platelets (Bld) [#/Vol] 202 10*3/uL 150-450 [facility] [place] Absolute lymphocyte countOrd ered By: Renard Burgos on 02-21-2022 Lymphocytes Auto (Unsp spec) [#/Vol] 1.93 10*3/uL 0.83-4.51 [facility] [place] Basophil percentageOrdered B y: Renard Burgos on 02-21-2022 Basophils/100 WBC (Bld) 0.4 % 0-1 [facility] [place] Eosinophils/100 WBC (Bld) 0.4 % 0-5 [facility] [place] Neutrophils (Bld) [#/Vol] 4.6 10*3/uL 2.0-7.7 [facility] [place] Neutrophils/100 WBC (Bld) 63.4 % 47-70 [facility] [place] WBC (Bld) [#/Vol] 7.2 10*3/uL 4.4-11.0 [facility] Blood erythrocytes count (nu mber/volume)Ordered By: Renard Burgos on 02-21-2022 RBC (Bld) [#/Vol] 4.54 10*6/uL 4.6-6.2 [facility] Blood hemoglobin measurement (mass/volume)Ordered By: Renard Burgos on 02-21-2022 Hemoglobin (Bld) [Mass/Vol] 14.1 g/dL 13.0-16.5 [facility] [place] Blood lymphocytes/100 leukoc ytesOrdered By: Renard Burgos on 02-21-2022 Lymphocytes/100 WBC (Bld) 26.7 % 19-41 [facility] [place] Blood monocytes/100 leukocyt esOrdered By: Renard Burgos on 02-21-2022 Monocytes/100 WBC (Bld) 8.8 % 0-10 [facility] [place] Blood platelet mean volumeOr dered By: Renard Burgos on 02-21-2022 Platelet mean volume (Bld) [Entitic vol] 11.1 fL 6.2-12.0 [facility] [place] Determination of erythrocyte mean corpuscular volume (MCV)Ordered By: Renard Burgos on 02-21-2022 MCV (RBC) [Entitic vol] 91.4 fL 80-94 [facility] [place] Hematocrit Auto (Bld) [Volum e fraction]Ordered By: Renard Burgos on 02-21-2022 Hematocrit (Bld) [Volume fraction] 41.5 % 40-54 [facility] Laboratory - Hematology and Cell countsOrdered By: Renard Burgos on 02-21-2022 Erythrocyte distribution width (RBC) [Entitic vol] 41.9 fL 35.1-43.9 [facility] Erythrocyte distribution width (RBC) [Ratio] 12.6 % 11.6-14.6 [facility] Immature granulocytes/100 WBC (Bld) 0.300 % 0.0-0.9 [facility] Comment on above: IG% - Immature Granu locytes (promyelocytes, myelocytes and metamyelocytes) > 1% indicates that a LEFT SHIFT is Present. MCH (RBC) [Entitic mass] 31.1 pg 27.0-32.0 [facility] Nucleated RBC/100 WBC (Bld) [Ratio] 0 % 0-5 [facility] MCHC Auto (RBC) [Mass/Vol]Or dered By: Renard Burgos on 02-21-2022 MCHC (RBC) [Mass/Vol] 34.0 g/dL 32-36 [facility] Platelets bldOrdered By: Lyubov lizy Loretta on 02-21-2022 Platelets (Bld) [#/Vol] 189 10*3/uL 150-450 [facility] Absolute lymphocyte countOrd ered By: Renard Burgos on 02-14-2022 Lymphocytes Auto (Unsp spec) [#/Vol] 2.00 10*3/uL 0.83-4.51 [facility] Basophil percentageOrdered B y: Renard Burgos on 02-14-2022 Basophils/100 WBC (Bld) 0.6 % 0-1 [facility] Eosinophils/100 WBC (Bld) 0.3 % 0-5 [facility] Neutrophils (Bld) [#/Vol] 6.4 10*3/uL 2.0-7.7 [facility] Neutrophils/100 WBC (Bld) 69.5 % 47-70 [facility] WBC (Bld) [#/Vol] 9.3 10*3/uL 4.4-11.0 [facility] Blood erythrocytes count (nu mber/volume)Ordered By: Renard Burgos on 02-14-2022 RBC (Bld) [#/Vol] 4.65 10*6/uL 4.6-6.2 [facility] Blood hemoglobin measurement (mass/volume)Ordered By: Renard Burgos on 02-14-2022 Hemoglobin (Bld) [Mass/Vol] 14.6 g/dL 13.0-16.5 [facility] Blood lymphocytes/100 leukoc ytesOrdered By: Renard Burgos on 02-14-2022 Lymphocytes/100 WBC (Bld) 21.6 % 19-41 [facility] Blood monocytes/100 leukocyt esOrdered By: Renard Burgos on 02-14-2022 Monocytes/100 WBC (Bld) 7.6 % 0-10 [facility] Blood platelet mean volumeOr dered By: Renard Burgos on 02-14-2022 Platelet mean volume (Bld) [Entitic vol] 11.1 fL 6.2-12.0 [facility] Determination of erythrocyte mean corpuscular volume (MCV)Ordered By: Renard Burgos on 02-14-2022 MCV (RBC) [Entitic vol] 91.8 fL 80-94 [facility] Hematocrit Auto (Bld) [Volum e fraction]Ordered By: Renard Burgos on 02-14-2022 Hematocrit (Bld) [Volume fraction] 42.7 % 40-54 [facility] Laboratory - Hematology and Cell countsOrdered By: Renard Burgos on 02-14-2022 Erythrocyte distribution width (RBC) [Entitic vol] 43.7 fL 35.1-43.9 [facility] Erythrocyte distribution width (RBC) [Ratio] 13.0 % 11.6-14.6 [facility] Immature granulocytes/100 WBC (Bld) 0.400 % 0.0-0.9 [facility] Comment on above: IG% - Immature Granu locytes (promyelocytes, myelocytes and metamyelocytes) > 1% indicates that a LEFT SHIFT is Present. MCH (RBC) [Entitic mass] 31.4 pg 27.0-32.0 [facility] Nucleated RBC/100 WBC (Bld) [Ratio] 0 % 0-5 [facility] MCHC Auto (RBC) [Mass/Vol]Or dered By: Renard Burgos on 02-14-2022 MCHC (RBC) [Mass/Vol] 34.2 g/dL 32-36 [facility] Platelets bldOrdered By: Lyubov Burgos on 02-14-2022 Platelets (Bld) [#/Vol] 187 10*3/uL 150-450 [facility] Absolute lymphocyte countOrd ered By: Renard Burgos on 02-07-2022 Lymphocytes Auto (Unsp spec) [#/Vol] 1.97 10*3/uL 0.83-4.51 [facility] Basophil percentageOrdered B y: Renard Burgos on 02-07-2022 Basophils/100 WBC (Bld) 0.4 % 0-1 [facility] Eosinophils/100 WBC (Bld) 0.3 % 0-5 [facility] Neutrophils (Bld) [#/Vol] 4.2 10*3/uL 2.0-7.7 [facility] Neutrophils/100 WBC (Bld) 61.8 % 47-70 [facility] WBC (Bld) [#/Vol] 6.8 10*3/uL 4.4-11.0 [facility] Blood erythrocytes count (nu mber/volume)Ordered By: Renard Burgos on 02-07-2022 RBC (Bld) [#/Vol] 4.86 10*6/uL 4.6-6.2 [facility] Blood hemoglobin measurement (mass/volume)Ordered By: Renard Burgos on 02-07-2022 Hemoglobin (Bld) [Mass/Vol] 15.4 g/dL 13.0-16.5 [facility] Blood lymphocytes/100 leukoc ytesOrdered By: Renard Burgos on 02-07-2022 Lymphocytes/100 WBC (Bld) 29.1 % 19-41 [facility] Blood monocytes/100 leukocyt esOrdered By: Renard Burgos on 02-07-2022 Monocytes/100 WBC (Bld) 8.1 % 0-10 [facility] Blood platelet mean volumeOr dered By: Renard Burgos on 02-07-2022 Platelet mean volume (Bld) [Entitic vol] 11.0 fL 6.2-12.0 [facility] Determination of erythrocyte mean corpuscular volume (MCV)Ordered By: Renard Burgos on 02-07-2022 MCV (RBC) [Entitic vol] 92.6 fL 80-94 [facility] Hematocrit Auto (Bld) [Volum e fraction]Ordered By: Renard Burgos on 02-07-2022 Hematocrit (Bld) [Volume fraction] 45.0 % 40-54 [facility] Laboratory - Hematology and Cell countsOrdered By: Renard Burgos on 02-07-2022 Erythrocyte distribution width (RBC) [Entitic vol] 43.1 fL 35.1-43.9 [facility] Erythrocyte distribution width (RBC) [Ratio] 12.7 % 11.6-14.6 [facility] Immature granulocytes/100 WBC (Bld) 0.300 % 0.0-0.9 [facility] Comment on above: IG% - Immature Granu locytes (promyelocytes, myelocytes and metamyelocytes) > 1% indicates that a LEFT SHIFT is Present. MCH (RBC) [Entitic mass] 31.7 pg 27.0-32.0 [facility] Nucleated RBC/100 WBC (Bld) [Ratio] 0 % 0-5 [facility] MCHC Auto (RBC) [Mass/Vol]Or dered By: Renard Burgos on 02-07-2022 MCHC (RBC) [Mass/Vol] 34.2 g/dL 32-36 [facility] Platelets bldOrdered By: Lyubov Burgos on 02-07-2022 Platelets (Bld) [#/Vol] 196 10*3/uL 150-450 [facility] Absolute lymphocyte countOrd ered By: Renard Burgos on 01-31-2022 Lymphocytes Auto (Unsp spec) [#/Vol] 2.19 10*3/uL 0.83-4.51 [facility] Basophil percentageOrdered B y: Renard Burgos on 01-31-2022 Basophils/100 WBC (Bld) 0.3 % 0-1 [facility] Eosinophils/100 WBC (Bld) 0.2 % 0-5 [facility] Neutrophils (Bld) [#/Vol] 5.7 10*3/uL 2.0-7.7 [facility] Neutrophils/100 WBC (Bld) 64.9 % 47-70 [facility] WBC (Bld) [#/Vol] 8.8 10*3/uL 4.4-11.0 [facility] Blood erythrocytes count (nu mber/volume)Ordered By: Renard Burgos on 01-31-2022 RBC (Bld) [#/Vol] 4.81 10*6/uL 4.6-6.2 [facility] Blood hemoglobin measurement (mass/volume)Ordered By: Renard Burgos on 01-31-2022 Hemoglobin (Bld) [Mass/Vol] 14.9 g/dL 13.0-16.5 [facility] Blood lymphocytes/100 leukoc ytesOrdered By: Renard Burgos on 01-31-2022 Lymphocytes/100 WBC (Bld) 24.9 % 19-41 [facility] Blood monocytes/100 leukocyt esOrdered By: Renard Burgos on 01-31-2022 Monocytes/100 WBC (Bld) 9.2 % 0-10 [facility] Blood platelet mean volumeOr dered By: Renard Burgos on 01-31-2022 Platelet mean volume (Bld) [Entitic vol] 11.0 fL 6.2-12.0 [facility] Determination of erythrocyte mean corpuscular volume (MCV)Ordered By: Renard Burgos on 01-31-2022 MCV (RBC) [Entitic vol] 92.9 fL 80-94 [facility] Hematocrit Auto (Bld) [Volum e fraction]Ordered By: Renard Burgos on 01-31-2022 Hematocrit (Bld) [Volume fraction] 44.7 % 40-54 [facility] Laboratory - Hematology and Cell countsOrdered By: Renard Burgos on 01-31-2022 Erythrocyte distribution width (RBC) [Entitic vol] 42.9 fL 35.1-43.9 [facility] Erythrocyte distribution width (RBC) [Ratio] 12.6 % 11.6-14.6 [facility] Immature granulocytes/100 WBC (Bld) 0.500 % 0.0-0.9 [facility] Comment on above: IG% - Immature Granu locytes (promyelocytes, myelocytes and metamyelocytes) > 1% indicates that a LEFT SHIFT is Present. MCH (RBC) [Entitic mass] 31.0 pg 27.0-32.0 [facility] Nucleated RBC/100 WBC (Bld) [Ratio] 0 % 0-5 [facility] MCHC Auto (RBC) [Mass/Vol]Or dered By: Renard Burgos on 01-31-2022 MCHC (RBC) [Mass/Vol] 33.3 g/dL 32-36 [facility] Platelets bldOrdered By: Lyubov Burgos on 01-31-2022 Platelets (Bld) [#/Vol] 204 10*3/uL 150-450 [facility] Absolute lymphocyte countOrd ered By: Renard Burgos on 01-24-2022 Lymphocytes Auto (Unsp spec) [#/Vol] 1.82 10*3/uL 0.83-4.51 [facility] Basophil percentageOrdered B y: Renard Burgos on 01-24-2022 Basophils/100 WBC (Bld) 0.3 % 0-1 [facility] Eosinophils/100 WBC (Bld) 0.3 % 0-5 [facility] Neutrophils (Bld) [#/Vol] 6.1 10*3/uL 2.0-7.7 [facility] Neutrophils/100 WBC (Bld) 69.9 % 47-70 [facility] WBC (Bld) [#/Vol] 8.7 10*3/uL 4.4-11.0 [facility] Blood erythrocytes count (nu mber/volume)Ordered By: Renard Burgos on 01-24-2022 RBC (Bld) [#/Vol] 4.74 10*6/uL 4.6-6.2 [facility] Blood hemoglobin measurement (mass/volume)Ordered By: Renard Burgos on 01-24-2022 Hemoglobin (Bld) [Mass/Vol] 14.5 g/dL 13.0-16.5 [facility] Blood lymphocytes/100 leukoc ytesOrdered By: Renard Burgos on 01-24-2022 Lymphocytes/100 WBC (Bld) 20.9 % 19-41 [facility] Blood monocytes/100 leukocyt esOrdered By: Renard Burgos on 01-24-2022 Monocytes/100 WBC (Bld) 8.4 % 0-10 [facility] Blood platelet mean volumeOr dered By: Renard Burgos on 01-24-2022 Platelet mean volume (Bld) [Entitic vol] 10.9 fL 6.2-12.0 [facility] Determination of erythrocyte mean corpuscular volume (MCV)Ordered By: Renard Burgos on 01-24-2022 MCV (RBC) [Entitic vol] 92.0 fL 80-94 [facility] Hematocrit Auto (Bld) [Volum e fraction]Ordered By: Renard Burgos on 01-24-2022 Hematocrit (Bld) [Volume fraction] 43.6 % 40-54 [facility] Laboratory - Hematology and Cell countsOrdered By: Renard Burgos on 01-24-2022 Erythrocyte distribution width (RBC) [Entitic vol] 42.3 fL 35.1-43.9 [facility] Erythrocyte distribution width (RBC) [Ratio] 12.5 % 11.6-14.6 [facility] Immature granulocytes/100 WBC (Bld) 0.200 % 0.0-0.9 [facility] Comment on above: IG% - Immature Granu locytes (promyelocytes, myelocytes and metamyelocytes) > 1% indicates that a LEFT SHIFT is Present. MCH (RBC) [Entitic mass] 30.6 pg 27.0-32.0 [facility] Nucleated RBC/100 WBC (Bld) [Ratio] 0 % 0-5 [facility] MCHC Auto (RBC) [Mass/Vol]Or dered By: Renard Burgos on 01-24-2022 MCHC (RBC) [Mass/Vol] 33.3 g/dL 32-36 [facility] Platelets bldOrdered By: Lyubov Burgos on 01-24-2022 Platelets (Bld) [#/Vol] 192 10*3/uL 150-450 [facility] Absolute lymphocyte counton 01-17-2022 Lymphocytes Auto (Unsp spec) [#/Vol] 1.89 10*3/uL 0.83-4.51 [facility] Work Phone: Basophil percentageon 2021 Basophils/100 WBC (Bld) 0.4 % 0-1 [facility] Work Phone: Eosinophils/100 WBC (Bld) 0.3 % 0-5 [facility] Work Phone: Neutrophils (Bld) [#/Vol] 4.4 10*3/uL 2.0-7.7 [facility] Work Phone: Neutrophils/100 WBC (Bld) 62.4 % 47-70 [facility] Work Phone: WBC (Bld) [#/Vol] 7.0 10*3/uL 4.4-11.0 [facility] Work Phone: Blood erythrocytes count (nu mber/volume)on 01-17-2022 RBC (Bld) [#/Vol] 4.64 10*6/uL 4.6-6.2 [facility] Work Phone: [phone] Blood hemoglobin measurement (mass/volume)on 01-17-2022 Hemoglobin (Bld) [Mass/Vol] 14.1 g/dL 13.0-16.5 [facility] Work Phone: Blood lymphocytes/100 leukoc yteson 01-17-2022 Lymphocytes/100 WBC (Bld) 27.0 % 19-41 [facility] Work Phone: [phone] Blood monocytes/100 leukocyt eson 01-17-2022 Monocytes/100 WBC (Bld) 9.3 % 0-10 [facility] Work Phone: Blood platelet mean volumeon 01-17-2022 Platelet mean volume (Bld) [Entitic vol] 11.1 fL 6.2-12.0 [facility] Work Phone: Determination of erythrocyte mean corpuscular volume (MCV)on 01-17-2022 MCV (RBC) [Entitic vol] 91.8 fL 80-94 [facility] Work Phone: Hematocrit Auto (Bld) [Volum e fraction]on 01-17-2022 Hematocrit (Bld) [Volume fraction] 42.6 % 40-54 [facility] Work Phone: Laboratory - Hematology and Cell countson 01-17-2022 Erythrocyte distribution width (RBC) [Entitic vol] 41.5 fL 35.1-43.9 [facility] Work Phone: Erythrocyte distribution width (RBC) [Ratio] 12.5 % 11.6-14.6 [facility] Work Phone: Immature granulocytes/100 WBC (Bld) 0.600 % 0.0-0.9 [facility] Work Phone: Comment on above: IG% - Immature Granu locytes (promyelocytes, myelocytes and metamyelocytes) > 1% indicates that a LEFT SHIFT is Present. MCH (RBC) [Entitic mass] 30.4 pg 27.0-32.0 [facility] Work Phone: Nucleated RBC/100 WBC (Bld) [Ratio] 0 % 0-5 [facility] Work Phone: MCHC Auto (RBC) [Mass/Vol]on 01-17-2022 MCHC (RBC) [Mass/Vol] 33.1 g/dL 32-36 [facility] Work Phone: [phone] Platelets bldon 01-17-2022 Platelets (Bld) [#/Vol] 200 10*3/uL 150-450 [facility] Work Phone: [phone] Absolute lymphocyte counton 01-10-2022 Lymphocytes Auto (Unsp spec) [#/Vol] 2.07 10*3/uL 0.83-4.51 [facility] Work Phone: Basophil percentageon 2021 Basophils/100 WBC (Bld) 0.6 % 0-1 [facility] Work Phone: [phone] Eosinophils/100 WBC (Bld) 0.3 % 0-5 [facility] Work Phone: [phone] Neutrophils (Bld) [#/Vol] 4.2 10*3/uL 2.0-7.7 [facility] Work Phone: [phone] Neutrophils/100 WBC (Bld) 59.2 % 47-70 [facility] Work Phone: WBC (Bld) [#/Vol] 7.0 10*3/uL 4.4-11.0 [facility] Work Phone: [phone] Blood erythrocytes count (nu mber/volume)on 01-10-2022 RBC (Bld) [#/Vol] 4.83 10*6/uL 4.6-6.2 [facility] Work Phone: [phone] Blood hemoglobin measurement (mass/volume)on 01-10-2022 Hemoglobin (Bld) [Mass/Vol] 14.8 g/dL 13.0-16.5 [facility] Work Phone: [phone] Blood lymphocytes/100 leukoc yteson 01-10-2022 Lymphocytes/100 WBC (Bld) 29.5 % 19-41 [facility] Work Phone: [phone] Blood monocytes/100 leukocyt eson 01-10-2022 Monocytes/100 WBC (Bld) 10.1 % 0-10 [facility] Work Phone: Blood platelet mean volumeon 01-10-2022 Platelet mean volume (Bld) [Entitic vol] 10.8 fL 6.2-12.0 [facility] Work Phone: Determination of erythrocyte mean corpuscular volume (MCV)on 01-10-2022 MCV (RBC) [Entitic vol] 97.5 fL 80-94 [facility] Work Phone: Hematocrit Auto (Bld) [Volum e fraction]on 01-10-2022 Hematocrit (Bld) [Volume fraction] 47.1 % 40-54 [facility] Work Phone: Laboratory - Hematology and Cell countson 01-10-2022 Erythrocyte distribution width (RBC) [Entitic vol] 44.9 fL 35.1-43.9 [facility] Work Phone: Erythrocyte distribution width (RBC) [Ratio] 12.7 % 11.6-14.6 [facility] Work Phone: Immature granulocytes/100 WBC (Bld) 0.300 % 0.0-0.9 [facility] Work Phone: Comment on above: IG% - Immature Granu locytes (promyelocytes, myelocytes and metamyelocytes) > 1% indicates that a LEFT SHIFT is Present. MCH (RBC) [Entitic mass] 30.6 pg 27.0-32.0 [facility] Work Phone: Nucleated RBC/100 WBC (Bld) [Ratio] 0 % 0-5 [facility] Work Phone: MCHC Auto (RBC) [Mass/Vol]on 01-10-2022 MCHC (RBC) [Mass/Vol] 31.4 g/dL 32-36 [facility] Work Phone: Platelets bldon 01-10-2022 Platelets (Bld) [#/Vol] 169 10*3/uL 150-450 [facility] Work Phone: Absolute lymphocyte counton 01-04-2022 Lymphocytes Auto (Unsp spec) [#/Vol] 1.84 10*3/uL 0.83-4.51 [facility] Work Phone: Basophil percentageon 2021 Basophils/100 WBC (Bld) 0.3 % 0-1 [facility] Work Phone: Eosinophils/100 WBC (Bld) 0.3 % 0-5 [facility] Work Phone: Neutrophils (Bld) [#/Vol] 4.8 10*3/uL 2.0-7.7 [facility] Work Phone: Neutrophils/100 WBC (Bld) 64.8 % 47-70 [facility] Work Phone: WBC (Bld) [#/Vol] 7.4 10*3/uL 4.4-11.0 [facility] Blood erythrocytes count (nu mber/volume)on 01-04-2022 RBC (Bld) [#/Vol] 4.67 10*6/uL 4.6-6.2 [facility] Blood hemoglobin measurement (mass/volume)on 01-04-2022 Hemoglobin (Bld) [Mass/Vol] 14.2 g/dL 13.0-16.5 [facility] Work Phone: Blood lymphocytes/100 leukoc yteson 01-04-2022 Lymphocytes/100 WBC (Bld) 25.0 % 19-41 [facility] Work Phone: Blood monocytes/100 leukocyt eson 01-04-2022 Monocytes/100 WBC (Bld) 9.1 % 0-10 [facility] Work Phone: Blood platelet mean volumeon 01-04-2022 Platelet mean volume (Bld) [Entitic vol] 11.0 fL 6.2-12.0 [facility] Work Phone: Determination of erythrocyte mean corpuscular volume (MCV)on 01-04-2022 MCV (RBC) [Entitic vol] 91.0 fL 80-94 [facility] Work Phone: Hematocrit Auto (Bld) [Volum e fraction]on 01-04-2022 Hematocrit (Bld) [Volume fraction] 42.5 % 40-54 [facility] Work Phone: Laboratory - Hematology and Cell countson 01-04-2022 Erythrocyte distribution width (RBC) [Entitic vol] 41.4 fL 35.1-43.9 [facility] Work Phone: Erythrocyte distribution width (RBC) [Ratio] 12.7 % 11.6-14.6 [facility] Work Phone: Immature granulocytes/100 WBC (Bld) 0.500 % 0.0-0.9 [facility] Work Phone: Comment on above: IG% - Immature Granu locytes (promyelocytes, myelocytes and metamyelocytes) > 1% indicates that a LEFT SHIFT is Present. MCH (RBC) [Entitic mass] 30.4 pg 27.0-32.0 [facility] Work Phone: Nucleated RBC/100 WBC (Bld) [Ratio] 0 % 0-5 [facility] Work Phone: MCHC Auto (RBC) [Mass/Vol]on 01-04-2022 MCHC (RBC) [Mass/Vol] 33.4 g/dL 32-36 [facility]: Platelets bldon 01-04-2022 Platelets (Bld) [#/Vol] 184 10*3/uL 150-450 [facility] Work Phone: Absolute lymphocyte counton 12-27-2021 Lymphocytes Auto (Unsp spec) [#/Vol] 1.79 10*3/uL 0.83-4.51 [facility] Work Phone: Basophil percentageon 2021 Basophils/100 WBC (Bld) 0.4 % 0-1 [facility] Work Phone: Eosinophils/100 WBC (Bld) 0.4 % 0-5 [facility] Work Phone: Neutrophils (Bld) [#/Vol] 4.9 10*3/uL 2.0-7.7 [facility] Work Phone: Neutrophils/100 WBC (Bld) 65.2 % 47-70 [facility] Work Phone: WBC (Bld) [#/Vol] 7.6 10*3/uL 4.4-11.0 [facility]: Blood erythrocytes count (nu mber/volume)on 12-27-2021 RBC (Bld) [#/Vol] 4.66 10*6/uL 4.6-6.2 [facility] Work [facility]: Blood hemoglobin measurement (mass/volume)on 12-27-2021 Hemoglobin (Bld) [Mass/Vol] 14.5 g/dL 13.0-16.5 [facility] Work Phone: Blood lymphocytes/100 leukoc yteson 12-27-2021 Lymphocytes/100 WBC (Bld) 23.6 % 19-41 [facility] Work Phone: Blood monocytes/100 leukocyt eson 12-27-2021 Monocytes/100 WBC (Bld) 10.0 % 0-10 [facility] Work Phone: Blood platelet mean volumeon 12-27-2021 Platelet mean volume (Bld) [Entitic vol] 10.9 fL 6.2-12.0 [facility] Work Phone: [phone] Determination of erythrocyte mean corpuscular volume (MCV)on 12-27-2021 MCV (RBC) [Entitic vol] 91.0 fL 80-94 [facility] Work Phone: Hematocrit Auto (Bld) [Volum e fraction]on 12-27-2021 Hematocrit (Bld) [Volume fraction] 42.4 % 40-54 [facility] Work Phone: Laboratory - Hematology and Cell countson 12-27-2021 Erythrocyte distribution width (RBC) [Entitic vol] 41.2 fL 35.1-43.9 [facility] Work Phone: [phone] Erythrocyte distribution width (RBC) [Ratio] 12.6 % 11.6-14.6 [facility] Work Phone: [phone] Immature granulocytes/100 WBC (Bld) 0.400 % 0.0-0.9 [facility] Work Phone: Comment on above: IG% - Immature Granu locytes (promyelocytes, myelocytes and metamyelocytes) > 1% indicates that a LEFT SHIFT is Present. MCH (RBC) [Entitic mass] 31.1 pg 27.0-32.0 [facility] Work Phone: [phone] Nucleated RBC/100 WBC (Bld) [Ratio] 0 % 0-5 [facility] Work Phone: MCHC Auto (RBC) [Mass/Vol]on 12-27-2021 MCHC (RBC) [Mass/Vol] 34.2 g/dL 32-36 [facility] Work Phone: [phone] Platelets bldon 12-27-2021 Platelets (Bld) [#/Vol] 185 10*3/uL 150-450 [facility] Work Phone: Absolute lymphocyte counton 12-20-2021 Lymphocytes Auto (Unsp spec) [#/Vol] 2.02 10*3/uL 0.83-4.51 [facility] Work Phone: Basophil percentageon 2021 Basophils/100 WBC (Bld) 0.2 % 0-1 [facility] Work Phone: Eosinophils/100 WBC (Bld) 0.3 % 0-5 [facility] Work Phone: Neutrophils (Bld) [#/Vol] 3.6 10*3/uL 2.0-7.7 [facility] Work Phone: Neutrophils/100 WBC (Bld) 57.8 % 47-70 [facility] Work Phone: WBC (Bld) [#/Vol] 6.1 10*3/uL 4.4-11.0 [facility] Work [facility]: Blood erythrocytes count (nu mber/volume)on 12-20-2021 RBC (Bld) [#/Vol] 4.81 10*6/uL 4.6-6.2 [facility] Work Phone: Blood hemoglobin measurement (mass/volume)on 12-20-2021 Hemoglobin (Bld) [Mass/Vol] 14.8 g/dL 13.0-16.5 [facility] [facility] [place] Work Phone: Blood lymphocytes/100 leukoc yteson 12-20-2021 Lymphocytes/100 WBC (Bld) 32.9 % 19-41 [facility] [place] Work Phone: Blood monocytes/100 leukocyt eson 12-20-2021 Monocytes/100 WBC (Bld) 8.3 % 0-10 [facility] [place] Work Phone: Blood platelet adequacy dete ction by light microscopyon 12-20-2021 Platelets LM Ql (Bld) ADEQUATE ADEQ [facility] Work Phone: Blood platelet mean volumeon 12-20-2021 Platelet mean volume (Bld) [Entitic vol] 11.1 fL 6.2-12.0 [facility] [place] Work Phone: Determination of erythrocyte mean corpuscular volume (MCV)on 12-20-2021 MCV (RBC) [Entitic vol] 93.1 fL 80-94 [facility] [place] Work Phone: Hematocrit Auto (Bld) [Volum e fraction]on 12-20-2021 Hematocrit (Bld) [Volume fraction] 44.8 % 40-54 [facility] [place] Work Phone: Laboratory - Hematology and Cell countson 12-20-2021 Erythrocyte distribution width (RBC) [Entitic vol] 42.4 fL 35.1-43.9 [facility] [place] Work Phone: Erythrocyte distribution width (RBC) [Ratio] 12.4 % 11.6-14.6 [facility] [place] Work Phone: Immature granulocytes/100 WBC (Bld) 0.500 % 0.0-0.9 [facility] [place] Work Phone: Comment on above: IG% - Immature Granu locytes (promyelocytes, myelocytes and metamyelocytes) > 1% indicates that a LEFT SHIFT is Present. MCH (RBC) [Entitic mass] 30.8 pg 27.0-32.0 [facility] [place] Work Phone: Nucleated RBC/100 WBC (Bld) [Ratio] 0 % 0-5 [facility] [place] Work Phone: MCHC Auto (RBC) [Mass/Vol]on 12-20-2021 MCHC (RBC) [Mass/Vol] 33.0 g/dL 32-36 [facility] Work Phone: Platelets bldon 12-20-2021 Platelets (Bld) [#/Vol] See comment 150-450 [facility] [place] Work Phone: Comment on above: Please note: [...] Auto (Unsp spec) [#/Vol] 1.88 10*3/uL 0.83-4.51 [facility] [place] Work Phone: Basophil percentageon 2021 Basophils/100 WBC (Bld) 0.6 % 0-1 [facility] [place] Work Phone: [phone] Eosinophils/100 WBC (Bld) 0.3 % 0-5 [facility] [place] Work Phone: Neutrophils (Bld) [#/Vol] 4.5 10*3/uL 2.0-7.7 [facility] [place] Work Phone: Neutrophils/100 WBC (Bld) 63.6 % 47-70 [facility] [place] Work Phone: WBC (Bld) [#/Vol] 7.1 10*3/uL 4.4-11.0 [facility] Blood erythrocytes count (nu mber/volume)on 12-13-2021 RBC (Bld) [#/Vol] 4.70 10*6/uL 4.6-6.2 [facility]: Blood hemoglobin measurement (mass/volume)on 12-13-2021 Hemoglobin (Bld) [Mass/Vol] 14.4 g/dL 13.0-16.5 [facility] [place] Work Phone: Blood lymphocytes/100 leukoc yteson 12-13-2021 Lymphocytes/100 WBC (Bld) 26.7 % 19-41 [facility] [place] Work Phone: Blood monocytes/100 leukocyt eson 12-13-2021 Monocytes/100 WBC (Bld) 8.5 % 0-10 [facility] [place] Work Phone: Blood platelet mean volumeon 12-13-2021 Platelet mean volume (Bld) [Entitic vol] 10.9 fL 6.2-12.0 [facility] [place] Work Phone: Determination of erythrocyte mean corpuscular volume (MCV)on 12-13-2021 MCV (RBC) [Entitic vol] 90.9 fL 80-94 [facility] [place] Work Phone: Hematocrit Auto (Bld) [Volum e fraction]on 12-13-2021 Hematocrit (Bld) [Volume fraction] 42.7 % 40-54 [facility] [place] Work Phone: Laboratory - Hematology and Cell countson 12-13-2021 Erythrocyte distribution width (RBC) [Entitic vol] 42.1 fL 35.1-43.9 [facility] [place] Work Phone: Erythrocyte distribution width (RBC) [Ratio] 12.6 % 11.6-14.6 [facility] [place] Work Phone: Immature granulocytes/100 WBC (Bld) 0.300 % 0.0-0.9 [facility] [place] Work Phone: Comment on above: IG% - Immature Granu locytes (promyelocytes, myelocytes and metamyelocytes) > 1% indicates that a LEFT SHIFT is Present. MCH (RBC) [Entitic mass] 30.6 pg 27.0-32.0 [facility] [place] Work Phone: Nucleated RBC/100 WBC (Bld) [Ratio] 0 % 0-5 [facility] [place] Work Phone: [phone] MCHC Auto (RBC) [Mass/Vol]on 12-13-2021 MCHC (RBC) [Mass/Vol] 33.7 g/dL 32-36 [facility] Work [facility]: Platelets bldon 12-13-2021 Platelets (Bld) [#/Vol] 194 10*3/uL 150-450 [facility] [place] Work Phone: Absolute lymphocyte counton 12-06-2021 Lymphocytes Auto (Unsp spec) [#/Vol] 1.91 10*3/uL 0.83-4.51 [facility] [place] Work Phone: Basophil percentageon 2021 Basophils/100 WBC (Bld) 0.4 % 0-1 [facility] [place] Work Phone: Eosinophils/100 WBC (Bld) 0.3 % 0-5 [facility] [place] Work Phone: Neutrophils (Bld) [#/Vol] 4.4 10*3/uL 2.0-7.7 [facility] [place] Work Phone: Neutrophils/100 WBC (Bld) 62.2 % 47-70 [facility] [place] Work Phone: WBC (Bld) [#/Vol] 7.0 10*3/uL 4.4-11.0 [facility] Work Phone: Blood erythrocytes count (nu mber/volume)on 12-06-2021 RBC (Bld) [#/Vol] 4.58 10*6/uL 4.6-6.2 [facility] Work Phone: Blood hemoglobin measurement (mass/volume)on 12-06-2021 Hemoglobin (Bld) [Mass/Vol] 13.8 g/dL 13.0-16.5 [facility] [place] Work Phone: Blood lymphocytes/100 leukoc yteson 12-06-2021 Lymphocytes/100 WBC (Bld) 27.2 % 19-41 [facility] [place] Work Phone: Blood monocytes/100 leukocyt eson 12-06-2021 Monocytes/100 WBC (Bld) 9.6 % 0-10 [facility] Work Phone: Blood platelet mean volumeon 12-06-2021 Platelet mean volume (Bld) [Entitic vol] 11.1 fL 6.2-12.0 [facility] [place] Work Phone: Determination of erythrocyte mean corpuscular volume (MCV)on 12-06-2021 MCV (RBC) [Entitic vol] 92.1 fL 80-94 [facility] [place] Work Phone: Hematocrit Auto (Bld) [Volum e fraction]on 12-06-2021 Hematocrit (Bld) [Volume fraction] 42.2 % 40-54 [facility] [place] Work Phone: Laboratory - Hematology and Cell countson 12-06-2021 Erythrocyte distribution width (RBC) [Entitic vol] 42.1 fL 35.1-43.9 [facility] [place] Work Phone: Erythrocyte distribution width (RBC) [Ratio] 12.6 % 11.6-14.6 [facility] [place] Work Phone: Immature granulocytes/100 WBC (Bld) 0.300 % 0.0-0.9 [facility] [place] Work Phone: Comment on above: IG% - Immature Granu locytes (promyelocytes, myelocytes and metamyelocytes) > 1% indicates that a LEFT SHIFT is Present. MCH (RBC) [Entitic mass] 30.1 pg 27.0-32.0 [facility] [place] Work Phone: Nucleated RBC/100 WBC (Bld) [Ratio] 0 % 0-5 [facility] [place] Work Phone: MCHC Auto (RBC) [Mass/Vol]on 12-06-2021 MCHC (RBC) [Mass/Vol] 32.7 g/dL 32-36 [facility] Work Phone: Platelets bldon 12-06-2021 Platelets (Bld) [#/Vol] 180 10*3/uL 150-450 [facility] [place] Work Phone: Absolute lymphocyte counton 11-29-2021 Lymphocytes Auto (Unsp spec) [#/Vol] 2.00 10*3/uL 0.83-4.51 [facility] [place] Work Phone: Basophil percentageon 2021 Basophils/100 WBC (Bld) 0.4 % 0-1 [facility] Work Phone: Eosinophils/100 WBC (Bld) 0.3 % 0-5 [facility] [place] Work Phone: Neutrophils (Bld) [#/Vol] 4.4 10*3/uL 2.0-7.7 [facility] [place] Work Phone: Neutrophils/100 WBC (Bld) 62.8 % 47-70 [facility] [place] Work Phone: WBC (Bld) [#/Vol] 7.0 10*3/uL 4.4-11.0 [facility] Work Phone: Blood erythrocytes count (nu mber/volume)on 11-29-2021 RBC (Bld) [#/Vol] 4.72 10*6/uL 4.6-6.2 [facility] Work [place]: Blood hemoglobin measurement (mass/volume)on 11-29-2021 Hemoglobin (Bld) [Mass/Vol] 14.6 g/dL 13.0-16.5 [facility] [place] Work Phone: Blood lymphocytes/100 leukoc yteson 11-29-2021 Lymphocytes/100 WBC (Bld) 28.6 % 19-41 [facility] [place] Work Phone: Blood monocytes/100 leukocyt eson 11-29-2021 Monocytes/100 WBC (Bld) 7.6 % 0-10 [facility] [place] Work Phone: Blood platelet mean volumeon 11-29-2021 Platelet mean volume (Bld) [Entitic vol] 11.1 fL 6.2-12.0 [facility] [place] Work Phone: Determination of erythrocyte mean corpuscular volume (MCV)on 11-29-2021 MCV (RBC) [Entitic vol] 91.9 fL 80-94 [facility] [place] Work Phone: Hematocrit Auto (Bld) [Volum e fraction]on 11-29-2021 Hematocrit (Bld) [Volume fraction] 43.4 % 40-54 [facility] [place] Work Phone: Laboratory - Hematology and Cell countson 11-29-2021 Erythrocyte distribution width (RBC) [Entitic vol] 41.8 fL 35.1-43.9 [facility] [place] Work Phone: Erythrocyte distribution width (RBC) [Ratio] 12.4 % 11.6-14.6 [facility] [place] Work Phone: Immature granulocytes/100 WBC (Bld) 0.300 % 0.0-0.9 [facility] [place] Work Phone: Comment on above: IG% - Immature Granu locytes (promyelocytes, myelocytes and metamyelocytes) > 1% indicates that a LEFT SHIFT is Present. MCH (RBC) [Entitic mass] 30.9 pg 27.0-32.0 [facility] [place] Work Phone: Nucleated RBC/100 WBC (Bld) [Ratio] 0 % 0-5 [facility] [place] Work Phone: MCHC Auto (RBC) [Mass/Vol]on 11-29-2021 MCHC (RBC) [Mass/Vol] 33.6 g/dL 32-36 [facility] Work Phone: Platelets bldon 11-29-2021 Platelets (Bld) [#/Vol] 205 10*3/uL 150-450 [facility] [place] Work Phone: [phone] Absolute lymphocyte counton 11-22-2021 Lymphocytes Auto (Unsp spec) [#/Vol] 2.25 10*3/uL 0.83-4.51 [facility] [place] Work Phone: Basophil percentageon 2021 Basophils/100 WBC (Bld) 0.4 % 0-1 [facility] [place] Work Phone: Eosinophils/100 WBC (Bld) 0.4 % 0-5 [facility] [place] Work Phone: Neutrophils (Bld) [#/Vol] 5.1 10*3/uL 2.0-7.7 [facility] [place] Work Phone: Neutrophils/100 WBC (Bld) 61.7 % 47-70 [facility] [place] Work Phone: [phone] WBC (Bld) [#/Vol] 8.3 10*3/uL 4.4-11.0 [facility] Work Phone: Blood erythrocytes count (nu mber/volume)on 11-22-2021 RBC (Bld) [#/Vol] 4.47 10*6/uL 4.6-6.2 [facility] Work Phone: Blood hemoglobin measurement (mass/volume)on 11-22-2021 Hemoglobin (Bld) [Mass/Vol] 13.5 g/dL 13.0-16.5 [facility] [place] Work Phone: [phone] Blood lymphocytes/100 leukoc yteson 11-22-2021 Lymphocytes/100 WBC (Bld) 27.2 % 19-41 [facility] [place] Work Phone: Blood monocytes/100 leukocyt eson 11-22-2021 Monocytes/100 WBC (Bld) 9.9 % 0-10 [facility] [place] Work Phone: Blood platelet mean volumeon 11-22-2021 Platelet mean volume (Bld) [Entitic vol] 11.1 fL 6.2-12.0 [facility] [place] Work Phone: Determination of erythrocyte mean corpuscular volume (MCV)on 11-22-2021 MCV (RBC) [Entitic vol] 92.2 fL 80-94 [facility] [place] Work Phone: Hematocrit Auto (Bld) [Volum e fraction]on 11-22-2021 Hematocrit (Bld) [Volume fraction] 41.2 % 40-54 [facility] [place] Work Phone: Laboratory - Hematology and Cell countson 11-22-2021 Erythrocyte distribution width (RBC) [Entitic vol] 42.3 fL 35.1-43.9 [facility] [place] Work Phone: Erythrocyte distribution width (RBC) [Ratio] 12.6 % 11.6-14.6 [facility] [place] Work Phone: Immature granulocytes/100 WBC (Bld) 0.400 % 0.0-0.9 [facility] [place] Work Phone: Comment on above: IG% - Immature Granu locytes (promyelocytes, myelocytes and metamyelocytes) > 1% indicates that a LEFT SHIFT is Present. MCH (RBC) [Entitic mass] 30.2 pg 27.0-32.0 [facility] [place] Work Phone: Nucleated RBC/100 WBC (Bld) [Ratio] 0 % 0-5 [facility] [place] Work Phone: MCHC Auto (RBC) [Mass/Vol]on 11-22-2021 MCHC (RBC) [Mass/Vol] 32.8 g/dL 32-36 [facility] Work Phone: Platelets bldon 11-22-2021 Platelets (Bld) [#/Vol] 190 10*3/uL 150-450 [facility] [place] Work Phone: Absolute lymphocyte counton 11-15-2021 Lymphocytes Auto (Unsp spec) [#/Vol] 2.09 10*3/uL 0.83-4.51 [facility] [place] Work Phone: Basophil percentageon 2021 Basophils/100 WBC (Bld) 0.6 % 0-1 [facility] [place] Work Phone: [phone] Eosinophils/100 WBC (Bld) 0.4 % 0-5 [facility] [place] Work Phone: [phone] Neutrophils (Bld) [#/Vol] 4.2 10*3/uL 2.0-7.7 [facility] [place] Work Phone: Neutrophils/100 WBC (Bld) 59.1 % 47-70 [facility] [place] Work Phone: WBC (Bld) [#/Vol] 7.1 10*3/uL 4.4-11.0 [facility] Work Phone: Blood erythrocytes count (nu mber/volume)on 11-15-2021 RBC (Bld) [#/Vol] 4.72 10*6/uL 4.6-6.2 [facility] Work [facility]: Blood hemoglobin measurement (mass/volume)on 11-15-2021 Hemoglobin (Bld) [Mass/Vol] 14.6 g/dL 13.0-16.5 [facility] [place] Work Phone: [phone] Blood lymphocytes/100 leukoc yteson 11-15-2021 Lymphocytes/100 WBC (Bld) 29.4 % 19-41 [facility] [place] Work Phone: [phone] Blood monocytes/100 leukocyt eson 11-15-2021 Monocytes/100 WBC (Bld) 10.1 % 0-10 W [facility] [place] Work Phone: Blood platelet mean volumeon 11-15-2021 Platelet mean volume (Bld) [Entitic vol] 10.7 fL 6.2-12.0 [facility] [place] Work Phone: Determination of erythrocyte mean corpuscular volume (MCV)on 11-15-2021 MCV (RBC) [Entitic vol] 91.9 fL 80-94 [facility] [place] Work Phone: Hematocrit Auto (Bld) [Volum e fraction]on 11-15-2021 Hematocrit (Bld) [Volume fraction] 43.4 % 40-54 [facility] [place] Work Phone: Laboratory - Hematology and Cell countson 11-15-2021 Erythrocyte distribution width (RBC) [Entitic vol] 41.9 fL 35.1-43.9 [facility] [place] Work Phone: Erythrocyte distribution width (RBC) [Ratio] 12.4 % 11.6-14.6 [facility] [place] Work Phone: Immature granulocytes/100 WBC (Bld) 0.400 % 0.0-0.9 [facility] [place] Work Phone: Comment on above: IG% - Immature Granu locytes (promyelocytes, myelocytes and metamyelocytes) > 1% indicates that a LEFT SHIFT is Present. MCH (RBC) [Entitic mass] 30.9 pg 27.0-32.0 [facility] [place] Work Phone: Nucleated RBC/100 WBC (Bld) [Ratio] 0 % 0-5 [facility] [place] Work Phone: MCHC Auto (RBC) [Mass/Vol]on 11-15-2021 MCHC (RBC) [Mass/Vol] 33.6 g/dL 32-36 [facility] Work Phone: Platelets bldon 11-15-2021 Platelets (Bld) [#/Vol] 191 10*3/uL 150-450 [facility] [place] Work Phone: Absolute lymphocyte counton 11-08-2021 Lymphocytes Auto (Unsp spec) [#/Vol] 1.97 10*3/uL 0.83-4.51 [facility] [place] Work Phone: Basophil percentageon 2021 Basophils/100 WBC (Bld) 0.3 % 0-1 [facility] [place] Work Phone: Eosinophils/100 WBC (Bld) 0.3 % 0-5 [facility] [place] Work Phone: Neutrophils (Bld) [#/Vol] 5.1 10*3/uL 2.0-7.7 [facility] [place] Work Phone: Neutrophils/100 WBC (Bld) 64.6 % 47-70 [facility] [place] Work Phone: WBC (Bld) [#/Vol] 7.8 10*3/uL 4.4-11.0 [facility]: Blood erythrocytes count (nu mber/volume)on 11-08-2021 RBC (Bld) [#/Vol] 4.53 10*6/uL 4.6-6.2 [facility] Work [facility]: Blood hemoglobin measurement (mass/volume)on 11-08-2021 Hemoglobin (Bld) [Mass/Vol] 14.2 g/dL 13.0-16.5 [facility] [place] Work Phone: Blood lymphocytes/100 leukoc yteson 11-08-2021 Lymphocytes/100 WBC (Bld) 25.2 % 19-41 [facility] [place] Work Phone: Blood monocytes/100 leukocyt eson 11-08-2021 Monocytes/100 WBC (Bld) 9.3 % 0-10 [facility] [place] Work Phone: [phone] Blood platelet mean volumeon 11-08-2021 Platelet mean volume (Bld) [Entitic vol] 10.9 fL 6.2-12.0 [facility] [place] Work Phone: Determination of erythrocyte mean corpuscular volume (MCV)on 11-08-2021 MCV (RBC) [Entitic vol] 92.7 fL 80-94 [facility] [place] Work Phone: Hematocrit Auto (Bld) [Volum e fraction]on 11-08-2021 Hematocrit (Bld) [Volume fraction] 42.0 % 40-54 [facility] [place] Work Phone: [phone] Laboratory - Hematology and Cell countson 11-08-2021 Erythrocyte distribution width (RBC) [Entitic vol] 42.3 fL 35.1-43.9 [facility] [place] Work Phone: Erythrocyte distribution width (RBC) [Ratio] 12.5 % 11.6-14.6 [facility] [place] Work Phone: Immature granulocytes/100 WBC (Bld) 0.300 % 0.0-0.9 [facility] [place] Work Phone: Comment on above: IG% - Immature Granu locytes (promyelocytes, myelocytes and metamyelocytes) > 1% indicates that a LEFT SHIFT is Present. MCH (RBC) [Entitic mass] 31.3 pg 27.0-32.0 [facility] [place] Work Phone: Nucleated RBC/100 WBC (Bld) [Ratio] 0 % 0-5 [facility] [place] Work Phone: MCHC Auto (RBC) [Mass/Vol]on 11-08-2021 MCHC (RBC) [Mass/Vol] 33.8 g/dL 32-36 [facility] Work Phone: Platelets bldon 11-08-2021 Platelets (Bld) [#/Vol] 207 10*3/uL 150-450 [facility] [place] Work Phone: Absolute lymphocyte counton 10-25-2021 Lymphocytes Auto (Unsp spec) [#/Vol] 2.05 10*3/uL 0.83-4.51 [facility] [place] Work Phone: Basophil percentageon 2021 Basophils/100 WBC (Bld) 0.4 % 0-1 [facility] [place] Work Phone: Eosinophils/100 WBC (Bld) 0.3 % 0-5 [facility] [place] Work Phone: Neutrophils (Bld) [#/Vol] 4.2 10*3/uL 2.0-7.7 [facility] [place] Work Phone: Neutrophils/100 WBC (Bld) 61.3 % 47-70 [facility] [place] Work Phone: WBC (Bld) [#/Vol] 6.8 10*3/uL 4.4-11.0 [facility] Work Phone: Blood erythrocytes count (nu mber/volume)on 10-25-2021 RBC (Bld) [#/Vol] 4.56 10*6/uL 4.6-6.2 [facility] Work Phone: Blood hemoglobin measurement (mass/volume)on 10-25-2021 Hemoglobin (Bld) [Mass/Vol] 13.9 g/dL 13.0-16.5 [facility] [place] Work Phone: Blood lymphocytes/100 leukoc yteson 10-25-2021 Lymphocytes/100 WBC (Bld) 30.1 % 19-41 [facility] [place] Work Phone: Blood monocytes/100 leukocyt eson 10-25-2021 Monocytes/100 WBC (Bld) 7.3 % 0-10 [facility] Work Phone: Blood platelet mean volumeon 10-25-2021 Platelet mean volume (Bld) [Entitic vol] 10.6 fL 6.2-12.0 [facility] [place] Work Phone: Determination of erythrocyte mean corpuscular volume (MCV)on 10-25-2021 MCV (RBC) [Entitic vol] 91.0 fL 80-94 [facility] [place] Work Phone: Hematocrit Auto (Bld) [Volum e fraction]on 10-25-2021 Hematocrit (Bld) [Volume fraction] 41.5 % 40-54 [facility] [place] Work Phone: Laboratory - Hematology and Cell countson 10-25-2021 Erythrocyte distribution width (RBC) [Entitic vol] 41.7 fL 35.1-43.9 [facility] [place] Work Phone: Erythrocyte distribution width (RBC) [Ratio] 12.6 % 11.6-14.6 [facility] Work Phone: Immature granulocytes/100 WBC (Bld) 0.600 % 0.0-0.9 [facility] [place] Work Phone: Comment on above: IG% - Immature Granu locytes (promyelocytes, myelocytes and metamyelocytes) > 1% indicates that a LEFT SHIFT is Present. MCH (RBC) [Entitic mass] 30.5 pg 27.0-32.0 [facility] [place] Work Phone: [phone] Nucleated RBC/100 WBC (Bld) [Ratio] 0 % 0-5 [facility] [place] Work Phone: MCHC Auto (RBC) [Mass/Vol]on 10-25-2021 MCHC (RBC) [Mass/Vol] 33.5 g/dL 32-36 [facility] Work Phone: Platelets bldon 10-25-2021 Platelets (Bld) [#/Vol] 191 10*3/uL 150-450 [facility] [place] Work Phone: Absolute lymphocyte counton 10-18-2021 Lymphocytes Auto (Unsp spec) [#/Vol] 1.66 10*3/uL 0.83-4.51 [facility] Work Phone: Basophil percentageon 2021 Basophils/100 WBC (Bld) 0.5 % 0-1 [facility] Work Phone: Eosinophils/100 WBC (Bld) 0.2 % 0-5 [facility] Work Phone: Neutrophils (Bld) [#/Vol] 4.3 10*3/uL 2.0-7.7 [facility] Work Phone: Neutrophils/100 WBC (Bld) 65.0 % 47-70 [facility] [place] Work Phone: WBC (Bld) [#/Vol] 6.6 10*3/uL 4.4-11.0 [facility] Work Phone: Blood erythrocytes count (nu mber/volume)on 10-18-2021 RBC (Bld) [#/Vol] 4.57 10*6/uL 4.6-6.2 [facility] Work [facility]: Blood hemoglobin measurement (mass/volume)on 10-18-2021 Hemoglobin (Bld) [Mass/Vol] 14.1 g/dL 13.0-16.5 [facility] Work Phone: Blood lymphocytes/100 leukoc yteson 10-18-2021 Lymphocytes/100 WBC (Bld) 25.2 % 19-41 [facility] Work Phone: Blood monocytes/100 leukocyt eson 10-18-2021 Monocytes/100 WBC (Bld) 8.8 % 0-10 [facility] Work Phone: Blood platelet mean volumeon 10-18-2021 Platelet mean volume (Bld) [Entitic vol] 10.6 fL 6.2-12.0 [facility] Work Phone: Determination of erythrocyte mean corpuscular volume (MCV)on 10-18-2021 MCV (RBC) [Entitic vol] 91.7 fL 80-94 [facility] Work Phone: Hematocrit Auto (Bld) [Volum e fraction]on 10-18-2021 Hematocrit (Bld) [Volume fraction] 41.9 % 40-54 [facility] [place] Work Phone: Laboratory - Hematology and Cell countson 10-18-2021 Erythrocyte distribution width (RBC) [Entitic vol] 41.6 fL 35.1-43.9 [facility] Work Phone: Erythrocyte distribution width (RBC) [Ratio] 12.5 % 11.6-14.6 [facility] Work Phone: Immature granulocytes/100 WBC (Bld) 0.300 % 0.0-0.9 [facility] Work Phone: Comment on above: IG% - Immature Granu locytes (promyelocytes, myelocytes and metamyelocytes) > 1% indicates that a LEFT SHIFT is Present. MCH (RBC) [Entitic mass] 30.9 pg 27.0-32.0 [facility] Work Phone: Nucleated RBC/100 WBC (Bld) [Ratio] 0 % 0-5 [facility] Work Phone: MCHC Auto (RBC) [Mass/Vol]on 10-18-2021 MCHC (RBC) [Mass/Vol] 33.7 g/dL 32-36 [facility] Work Phone: Platelets bldon 10-18-2021 Platelets (Bld) [#/Vol] 185 10*3/uL 150-450 [facility] Work Phone: Absolute lymphocyte counton 10-11-2021 Lymphocytes Auto (Unsp spec) [#/Vol] 1.66 10*3/uL 0.83-4.51 [facility] Work Phone: Basophil percentageon 2021 Basophils/100 WBC (Bld) 0.5 % 0-1 [facility] Work Phone: Eosinophils/100 WBC (Bld) 0.1 % 0-5 [facility] Work Phone: Neutrophils (Bld) [#/Vol] 5.9 10*3/uL 2.0-7.7 [facility] [facility] [place] Work Phone: Neutrophils/100 WBC (Bld) 70.8 % 47-70 [facility] [place] Work Phone: WBC (Bld) [#/Vol] 8.3 10*3/uL 4.4-11.0 [facility] Work Phone: Blood erythrocytes count (nu mber/volume)on 10-11-2021 RBC (Bld) [#/Vol] 4.66 10*6/uL 4.6-6.2 [facility] Work [facility]: Blood hemoglobin measurement (mass/volume)on 10-11-2021 Hemoglobin (Bld) [Mass/Vol] 14.1 g/dL 13.0-16.5 [facility] [place] Work Phone: Blood lymphocytes/100 leukoc yteson 10-11-2021 Lymphocytes/100 WBC (Bld) 20.0 % 19-41 [facility] [place] Work Phone: Blood monocytes/100 leukocyt eson 10-11-2021 Monocytes/100 WBC (Bld) 8.2 % 0-10 [facility] [place] Work Phone: Blood platelet mean volumeon 10-11-2021 Platelet mean volume (Bld) [Entitic vol] 10.7 fL 6.2-12.0 [facility] [place] Work Phone: Determination of erythrocyte mean corpuscular volume (MCV)on 10-11-2021 MCV (RBC) [Entitic vol] 91.8 fL 80-94 [facility] [place] Work Phone: Hematocrit Auto (Bld) [Volum e fraction]on 10-11-2021 Hematocrit (Bld) [Volume fraction] 42.8 % 40-54 [facility] [place] Work Phone: Laboratory - Hematology and Cell countson 10-11-2021 Erythrocyte distribution width (RBC) [Entitic vol] 42.8 fL 35.1-43.9 [facility] [place] Work Phone: Erythrocyte distribution width (RBC) [Ratio] 12.8 % 11.6-14.6 [facility] [place] Work Phone: Immature granulocytes/100 WBC (Bld) 0.400 % 0.0-0.9 [facility] [place] Work Phone: Comment on above: IG% - Immature Granu locytes (promyelocytes, myelocytes and metamyelocytes) > 1% indicates that a LEFT SHIFT is Present. MCH (RBC) [Entitic mass] 30.3 pg 27.0-32.0 [facility] [place] Work Phone: [phone] Nucleated RBC/100 WBC (Bld) [Ratio] 0 % 0-5 [facility] [place] Work Phone: [phone] MCHC Auto (RBC) [Mass/Vol]on 10-11-2021 MCHC (RBC) [Mass/Vol] 32.9 g/dL 32-36 [facility] Work Phone: [phone] Platelets bldon 10-11-2021 Platelets (Bld) [#/Vol] 193 10*3/uL 150-450 [facility] [place] Work Phone: [phone] Absolute lymphocyte counton 10-04-2021 Lymphocytes Auto (Unsp spec) [#/Vol] 1.97 10*3/uL 0.83-4.51 [facility] [place] Work Phone: [phone] Basophil percentageon 2021 Basophils/100 WBC (Bld) 0.5 % 0-1 [facility] [place] Work Phone: Eosinophils/100 WBC (Bld) 0.1 % 0-5 [facility] [place] Work Phone: [phone] Neutrophils (Bld) [#/Vol] 5.0 10*3/uL 2.0-7.7 [facility] [place] Work Phone: [phone] Neutrophils/100 WBC (Bld) 64.4 % 47-70 [facility] [place] Work Phone: [phone] WBC (Bld) [#/Vol] 7.7 10*3/uL 4.4-11.0 [facility]: [phone] Blood erythrocytes count (nu mber/volume)on 10-04-2021 RBC (Bld) [#/Vol] 4.52 10*6/uL 4.6-6.2 [facility] Work Phone: [phone] Blood hemoglobin measurement (mass/volume)on 10-04-2021 Hemoglobin (Bld) [Mass/Vol] 13.9 g/dL 13.0-16.5 [facility] [place] Work Phone: Blood lymphocytes/100 leukoc yteson 10-04-2021 Lymphocytes/100 WBC (Bld) 25.6 % 19-41 [facility] [place] Work Phone: Blood monocytes/100 leukocyt eson 10-04-2021 Monocytes/100 WBC (Bld) 9.0 % 0-10 [facility] [place] Work Phone: Blood platelet mean volumeon 10-04-2021 Platelet mean volume (Bld) [Entitic vol] 11.0 fL 6.2-12.0 [facility] [place] Work Phone: Determination of erythrocyte mean corpuscular volume (MCV)on 10-04-2021 MCV (RBC) [Entitic vol] 91.4 fL 80-94 [facility] [place] Work Phone: Hematocrit Auto (Bld) [Volum e fraction]on 10-04-2021 Hematocrit (Bld) [Volume fraction] 41.3 % 40-54 [facility] [place] Work Phone: Laboratory - Hematology and Cell countson 10-04-2021 Erythrocyte distribution width (RBC) [Entitic vol] 42.2 fL 35.1-43.9 [facility] [place] Work Phone: Erythrocyte distribution width (RBC) [Ratio] 12.8 % 11.6-14.6 [facility] [place] Work Phone: Immature granulocytes/100 WBC (Bld) 0.400 % 0.0-0.9 [facility] [place] Work Phone: Comment on above: IG% - Immature Granu locytes (promyelocytes, myelocytes and metamyelocytes) > 1% indicates that a LEFT SHIFT is Present. MCH (RBC) [Entitic mass] 30.8 pg 27.0-32.0 [facility] [place] Work Phone: Nucleated RBC/100 WBC (Bld) [Ratio] 0 % 0-5 [facility] [place] Work Phone: MCHC Auto (RBC) [Mass/Vol]on 10-04-2021 MCHC (RBC) [Mass/Vol] 33.7 g/dL 32-36 [facility] Work Phone: [phone] Platelets bldon 10-04-2021 Platelets (Bld) [#/Vol] 179 10*3/uL 150-450 [facility] [place] Work Phone: [phone] Absolute lymphocyte counton 09-28-2021 Lymphocytes Auto (Unsp spec) [#/Vol] 2.10 10*3/uL 0.83-4.51 [facility] [place] Work Phone: [phone] Basophil percentageon 2021 Basophils/100 WBC (Bld) 0.4 % 0-1 [facility] [place] Work Phone: [phone] Eosinophils/100 WBC (Bld) 0.3 % 0-5 [facility] [place] Work Phone: [phone] Neutrophils (Bld) [#/Vol] 4.3 10*3/uL 2.0-7.7 [facility] [place] Work Phone: Neutrophils/100 WBC (Bld) 59.9 % 47-70 [facility] [place] Work Phone: [phone] WBC (Bld) [#/Vol] 7.2 10*3/uL 4.4-11.0 [facility] Work Phone: Blood erythrocytes count (nu mber/volume)on 09-28-2021 RBC (Bld) [#/Vol] 4.34 10*6/uL 4.6-6.2 [facility] Work Phone: [phone] Blood hemoglobin measurement (mass/volume)on 09-28-2021 Hemoglobin (Bld) [Mass/Vol] 13.3 g/dL 13.0-16.5 [facility] [place] Work Phone: [phone] Blood lymphocytes/100 leukoc yteson 09-28-2021 Lymphocytes/100 WBC (Bld) 29.3 % 19-41 [facility] [place] Work Phone: [phone] Blood monocytes/100 leukocyt eson 09-28-2021 Monocytes/100 WBC (Bld) 9.8 % 0-10 [facility] [place] Work Phone: Blood platelet mean volumeon 09-28-2021 Platelet mean volume (Bld) [Entitic vol] 10.7 fL 6.2-12.0 [facility] [place] Work Phone: Determination of erythrocyte mean corpuscular volume (MCV)on 09-28-2021 MCV (RBC) [Entitic vol] 91.2 fL 80-94 [facility] [place] Work Phone: Hematocrit Auto (Bld) [Volum e fraction]on 09-28-2021 Hematocrit (Bld) [Volume fraction] 39.6 % 40-54 [facility] [place] Work Phone: Laboratory - Hematology and Cell countson 09-28-2021 Erythrocyte distribution width (RBC) [Entitic vol] 41.8 fL 35.1-43.9 [facility] [place] Work Phone: Erythrocyte distribution width (RBC) [Ratio] 12.6 % 11.6-14.6 [facility] [place] Work Phone: Immature granulocytes/100 WBC (Bld) 0.300 % 0.0-0.9 [facility] [place] Work Phone: Comment on above: IG% - Immature Granu locytes (promyelocytes, myelocytes and metamyelocytes) > 1% indicates that a LEFT SHIFT is Present. MCH (RBC) [Entitic mass] 30.6 pg 27.0-32.0 [facility] [place] Work Phone: Nucleated RBC/100 WBC (Bld) [Ratio] 0 % 0-5 [facility] [place] Work Phone: MCHC Auto (RBC) [Mass/Vol]on 09-28-2021 MCHC (RBC) [Mass/Vol] 33.6 g/dL 32-36 [facility] Work [facility]: Platelets bldon 09-28-2021 Platelets (Bld) [#/Vol] 181 10*3/uL 150-450 [facility] [place] Work Phone: Absolute lymphocyte counton 09-20-2021 Lymphocytes Auto (Unsp spec) [#/Vol] 1.79 10*3/uL 0.83-4.51 [facility] [place] Work Phone: Basophil percentageon 2021 Basophils/100 WBC (Bld) 0.4 % 0-1 [facility] [place] Work Phone: Eosinophils/100 WBC (Bld) 0.3 % 0-5 [facility] [place] Work Phone: Neutrophils (Bld) [#/Vol] 4.1 10*3/uL 2.0-7.7 [facility] [place] Work Phone: Neutrophils/100 WBC (Bld) 61.3 % 47-70 [facility] [place] Work Phone: WBC (Bld) [#/Vol] 6.7 10*3/uL 4.4-11.0 [facility]: Blood erythrocytes count (nu mber/volume)on 09-20-2021 RBC (Bld) [#/Vol] 4.32 10*6/uL 4.6-6.2 [facility] Work Phone: Blood hemoglobin measurement (mass/volume)on 09-20-2021 Hemoglobin (Bld) [Mass/Vol] 13.6 g/dL 13.0-16.5 [facility] [place] Work Phone: Blood lymphocytes/100 leukoc yteson 09-20-2021 Lymphocytes/100 WBC (Bld) 26.8 % 19-41 [facility] [place] Work Phone: Blood monocytes/100 leukocyt eson 09-20-2021 Monocytes/100 WBC (Bld) 10.8 % 0-10 [facility] [place] Work Phone: Blood platelet mean volumeon 09-20-2021 Platelet mean volume (Bld) [Entitic vol] 10.7 fL 6.2-12.0 [facility] [place] Work Phone: Determination of erythrocyte mean corpuscular volume (MCV)on 09-20-2021 MCV (RBC) [Entitic vol] 93.1 fL 80-94 [facility] [place] Work Phone: Hematocrit Auto (Bld) [Volum e fraction]on 09-20-2021 Hematocrit (Bld) [Volume fraction] 40.2 % 40-54 [facility] [place] Work Phone: Laboratory - Hematology and Cell countson 09-20-2021 Erythrocyte distribution width (RBC) [Entitic vol] 43.0 fL 35.1-43.9 [facility] [place] Work Phone: Erythrocyte distribution width (RBC) [Ratio] 12.6 % 11.6-14.6 [facility] [place] Work Phone: Immature granulocytes/100 WBC (Bld) 0.400 % 0.0-0.9 [facility] [place] Work Phone: Comment on above: IG% - Immature Granu locytes (promyelocytes, myelocytes and metamyelocytes) > 1% indicates that a LEFT SHIFT is Present. MCH (RBC) [Entitic mass] 31.5 pg 27.0-32.0 [facility] [place] Work Phone: Nucleated RBC/100 WBC (Bld) [Ratio] 0 % 0-5 [facility] [place] Work Phone: MCHC Auto (RBC) [Mass/Vol]on 09-20-2021 MCHC (RBC) [Mass/Vol] 33.8 g/dL 32-36 [facility] Work Phone: Platelets bldon 09-20-2021 Platelets (Bld) [#/Vol] 170 10*3/uL 150-450 [facility] [place] Work Phone: Absolute lymphocyte counton 09-13-2021 Lymphocytes Auto (Unsp spec) [#/Vol] 1.85 10*3/uL 0.83-4.51 [facility] [place] Work Phone: Basophil percentageon 2021 Basophils/100 WBC (Bld) 0.6 % 0-1 [facility] [place] Work Phone: Eosinophils/100 WBC (Bld) 0.3 % 0-5 [facility] [place] Work Phone: Neutrophils (Bld) [#/Vol] 4.3 10*3/uL 2.0-7.7 [facility] [place] Work Phone: Neutrophils/100 WBC (Bld) 63.1 % 47-70 [facility] [place] Work Phone: WBC (Bld) [#/Vol] 6.7 10*3/uL 4.4-11.0 [facility] Work [facility]: Blood erythrocytes count (nu mber/volume)on 09-13-2021 RBC (Bld) [#/Vol] 4.63 10*6/uL 4.6-6.2 [facility] Work Phone: [phone] Blood hemoglobin measurement (mass/volume)on 09-13-2021 Hemoglobin (Bld) [Mass/Vol] 14.2 g/dL 13.0-16.5 [facility] [place] Work Phone: Blood lymphocytes/100 leukoc yteson 09-13-2021 Lymphocytes/100 WBC (Bld) 27.5 % 19-41 [facility] [place] Work Phone: Blood monocytes/100 leukocyt eson 09-13-2021 Monocytes/100 WBC (Bld) 8.2 % 0-10 [facility] [place] Work Phone: Blood platelet mean volumeon 09-13-2021 Platelet mean volume (Bld) [Entitic vol] 11.0 fL 6.2-12.0 [facility] [place] Work Phone: Determination of erythrocyte mean corpuscular volume (MCV)on 09-13-2021 MCV (RBC) [Entitic vol] 93.5 fL 80-94 [facility] [place] Work Phone: Hematocrit Auto (Bld) [Volum e fraction]on 09-13-2021 Hematocrit (Bld) [Volume fraction] 43.3 % 40-54 [facility] [place] Work Phone: Laboratory - Hematology and Cell countson 09-13-2021 Erythrocyte distribution width (RBC) [Entitic vol] 43.0 fL 35.1-43.9 [facility] [place] Work Phone: [phone] Erythrocyte distribution width (RBC) [Ratio] 12.6 % 11.6-14.6 [facility] [place] Work Phone: [phone] Immature granulocytes/100 WBC (Bld) 0.300 % 0.0-0.9 [facility] [place] Work Phone: Comment on above: IG% - Immature Granu locytes (promyelocytes, myelocytes and metamyelocytes) > 1% indicates that a LEFT SHIFT is Present. MCH (RBC) [Entitic mass] 30.7 pg 27.0-32.0 [facility] [place] Work Phone: [phone] Nucleated RBC/100 WBC (Bld) [Ratio] 0 % 0-5 [facility] [place] Work Phone: MCHC Auto (RBC) [Mass/Vol]on 09-13-2021 MCHC (RBC) [Mass/Vol] 32.8 g/dL 32-36 [facility] Work Phone: [phone] Platelets bldon 09-13-2021 Platelets (Bld) [#/Vol] 188 10*3/uL 150-450 [facility] [place] Work Phone: Absolute lymphocyte counton 09-06-2021 Lymphocytes Auto (Unsp spec) [#/Vol] 1.86 10*3/uL 0.83-4.51 [facility] [place] Work Phone: Basophil percentageon 2021 Basophils/100 WBC (Bld) 0.7 % 0-1 [facility] [place] Work Phone: Eosinophils/100 WBC (Bld) 0.3 % 0-5 [facility] [place] Work Phone: Neutrophils (Bld) [#/Vol] 4.4 10*3/uL 2.0-7.7 [facility] [place] Work Phone: Neutrophils/100 WBC (Bld) 62.6 % 47-70 [facility] [place] Work Phone: WBC (Bld) [#/Vol] 7.0 10*3/uL 4.4-11.0 [facility] Work Phone: Blood erythrocytes count (nu mber/volume)on 09-06-2021 RBC (Bld) [#/Vol] 4.51 10*6/uL 4.6-6.2 [facility] Work Phone: Blood hemoglobin measurement (mass/volume)on 09-06-2021 Hemoglobin (Bld) [Mass/Vol] 13.8 g/dL 13.0-16.5 [facility] [place] Work Phone: Blood lymphocytes/100 leukoc yteson 09-06-2021 Lymphocytes/100 WBC (Bld) 26.5 % 19-41 [facility] [place] Work Phone: Blood monocytes/100 leukocyt eson 09-06-2021 Monocytes/100 WBC (Bld) 9.5 % 0-10 [facility] [place] Work Phone: Blood platelet mean volumeon 09-06-2021 Platelet mean volume (Bld) [Entitic vol] 10.7 fL 6.2-12.0 [facility] [place] Work Phone: Determination of erythrocyte mean corpuscular volume (MCV)on 09-06-2021 MCV (RBC) [Entitic vol] 92.9 fL 80-94 [facility] [place] Work Phone: Hematocrit Auto (Bld) [Volum e fraction]on 09-06-2021 Hematocrit (Bld) [Volume fraction] 41.9 % 40-54 [facility] [place] Work Phone: Laboratory - Hematology and Cell countson 09-06-2021 Erythrocyte distribution width (RBC) [Entitic vol] 43.0 fL 35.1-43.9 [facility] [place] Work Phone: Erythrocyte distribution width (RBC) [Ratio] 12.7 % 11.6-14.6 [facility] [place] Work Phone: Immature granulocytes/100 WBC (Bld) 0.400 % 0.0-0.9 [facility] [place] Work Phone: Comment on above: IG% - Immature Granu locytes (promyelocytes, myelocytes and metamyelocytes) > 1% indicates that a LEFT SHIFT is Present. MCH (RBC) [Entitic mass] 30.6 pg 27.0-32.0 [facility] [place] Work Phone: Nucleated RBC/100 WBC (Bld) [Ratio] 0 % 0-5 [facility] [place] Work Phone: [phone] MCHC Auto (RBC) [Mass/Vol]on 09-06-2021 MCHC (RBC) [Mass/Vol] 32.9 g/dL 32-36 [facility] Work Phone: Platelets bldon 09-06-2021 Platelets (Bld) [#/Vol] 189 10*3/uL 150-450 [facility] [place] Work Phone: [phone] Absolute lymphocyte counton 08-30-2021 Lymphocytes Auto (Unsp spec) [#/Vol] 1.44 10*3/uL 0.83-4.51 [facility] [place] Work Phone: [phone] Basophil percentageon 2021 Basophils/100 WBC (Bld) 0.3 % 0-1 [facility] [place] Work Phone: Eosinophils/100 WBC (Bld) 0.2 % 0-5 [facility] [place] Work Phone: Neutrophils (Bld) [#/Vol] 9.6 10*3/uL 2.0-7.7 [facility] [place] Work Phone: Neutrophils/100 WBC (Bld) 80.4 % 47-70 [facility] [place] Work Phone: WBC (Bld) [#/Vol] 12.0 10*3/uL 4.4-11.0 [facility] Work Phone: Blood erythrocytes count (nu mber/volume)on 08-30-2021 RBC (Bld) [#/Vol] 4.52 10*6/uL 4.6-6.2 [facility] Work Phone: Blood hemoglobin measurement (mass/volume)on 08-30-2021 Hemoglobin (Bld) [Mass/Vol] 13.9 g/dL 13.0-16.5 [facility] [place] Work Phone: Blood lymphocytes/100 leukoc yteson 08-30-2021 Lymphocytes/100 WBC (Bld) 12.0 % 19-41 [facility] [place] Work Phone: Blood monocytes/100 leukocyt eson 08-30-2021 Monocytes/100 WBC (Bld) 6.7 % 0-10 [facility] [place] Work Phone: Blood platelet mean volumeon 08-30-2021 Platelet mean volume (Bld) [Entitic vol] 11.3 fL 6.2-12.0 [facility] [place] Work Phone: Determination of erythrocyte mean corpuscular volume (MCV)on 08-30-2021 MCV (RBC) [Entitic vol] 92.7 fL 80-94 [facility] [place] Work Phone: Hematocrit Auto (Bld) [Volum e fraction]on 08-30-2021 Hematocrit (Bld) [Volume fraction] 41.9 % 40-54 [facility] [place] Work Phone: Laboratory - Hematology and Cell countson 08-30-2021 Erythrocyte distribution width (RBC) [Entitic vol] 42.6 fL 35.1-43.9 [facility] [place] Work Phone: Erythrocyte distribution width (RBC) [Ratio] 12.6 % 11.6-14.6 [facility] [place] Work Phone: Immature granulocytes/100 WBC (Bld) 0.400 % 0.0-0.9 [facility] [place] Work Phone: Comment on above: IG% - Immature Granu locytes (promyelocytes, myelocytes and metamyelocytes) > 1% indicates that a LEFT SHIFT is Present. MCH (RBC) [Entitic mass] 30.8 pg 27.0-32.0 [facility] [place] Work Phone: [phone] Nucleated RBC/100 WBC (Bld) [Ratio] 0 % 0-5 [facility] [place] Work Phone: MCHC Auto (RBC) [Mass/Vol]on 08-30-2021 MCHC (RBC) [Mass/Vol] 33.2 g/dL 32-36 [facility] Work Phone: Platelets bldon 08-30-2021 Platelets (Bld) [#/Vol] 200 10*3/uL 150-450 [facility] [place] Work Phone: Absolute lymphocyte counton 08-23-2021 Lymphocytes Auto (Unsp spec) [#/Vol] 1.91 10*3/uL 0.83-4.51 [facility] [place] Work Phone: Basophil percentageon 2021 Basophils/100 WBC (Bld) 0.4 % 0-1 [facility] [place] Work Phone: Eosinophils/100 WBC (Bld) 0.3 % 0-5 [facility] [place] Work Phone: Neutrophils (Bld) [#/Vol] 4.2 10*3/uL 2.0-7.7 [facility] [place] Work Phone: Neutrophils/100 WBC (Bld) 62.3 % 47-70 [facility] [place] Work Phone: WBC (Bld) [#/Vol] 6.8 10*3/uL 4.4-11.0 [facility] Work [facility]: [phone] Blood erythrocytes count (nu mber/volume)on 08-23-2021 RBC (Bld) [#/Vol] 4.46 10*6/uL 4.6-6.2 [facility] Work Phone: [phone] Blood hemoglobin measurement (mass/volume)on 08-23-2021 Hemoglobin (Bld) [Mass/Vol] 13.7 g/dL 13.0-16.5 [facility] [place] Work Phone: Blood lymphocytes/100 leukoc yteson 08-23-2021 Lymphocytes/100 WBC (Bld) 28.3 % 19-41 [facility] [place] Work Phone: Blood monocytes/100 leukocyt eson 08-23-2021 Monocytes/100 WBC (Bld) 8.1 % 0-10 [facility] [place] Work Phone: Blood platelet mean volumeon 08-23-2021 Platelet mean volume (Bld) [Entitic vol] 10.6 fL 6.2-12.0 [facility] [place] Work Phone: Determination of erythrocyte mean corpuscular volume (MCV)on 08-23-2021 MCV (RBC) [Entitic vol] 93.0 fL 80-94 [facility] [place] Work Phone: Hematocrit Auto (Bld) [Volum e fraction]on 08-23-2021 Hematocrit (Bld) [Volume fraction] 41.5 % 40-54 [facility] [place] Work Phone: Laboratory - Hematology and Cell countson 08-23-2021 Erythrocyte distribution width (RBC) [Entitic vol] 42.4 fL 35.1-43.9 [facility] [place] Work Phone: Erythrocyte distribution width (RBC) [Ratio] 12.5 % 11.6-14.6 [facility] [place] Work Phone: Immature granulocytes/100 WBC (Bld) 0.600 % 0.0-0.9 [facility] [place] Work Phone: Comment on above: IG% - Immature Granu locytes (promyelocytes, myelocytes and metamyelocytes) > 1% indicates that a LEFT SHIFT is Present. MCH (RBC) [Entitic mass] 30.7 pg 27.0-32.0 [facility] [place] Work Phone: Nucleated RBC/100 WBC (Bld) [Ratio] 0 % 0-5 [facility] [place] Work Phone: MCHC Auto (RBC) [Mass/Vol]on 08-23-2021 MCHC (RBC) [Mass/Vol] 33.0 g/dL 32-36 [facility] Work Phone: Platelets bldon 08-23-2021 Platelets (Bld) [#/Vol] 198 10*3/uL 150-450 [facility] [place] Work Phone: Basophil percentageon 2021 Basophil percentage 0 SEEN /hpf 0-5 [facility] Work Phone: Bilirubin Test strip Ql (U)o n 08-18-2021 Bilirubin Ql (U) Negative Negative [facility] [place] Work Phone: Culture, urineon 08-18-2021 Bacteria identified Cx Nom (U) Culture exhibits no growth. [facility] [place] Work Phone: Ketones Test strip Ql (U)on 08-18-2021 Ketones Ql (U) Negative Negative [facility] [place] Work Phone: Mucus LM Ql (Urine sed)on Mucus Ql (Urine sed) 0 SEEN /hpf [facility] Work Phone: Nitrite Test strip Ql (U)on 08-18-2021 Nitrite Ql (U) Negative Negative [facility] [place] Work Phone: Protein Test strip Ql (U)on 08-18-2021 Protein Ql (U) Negative Negative [facility] Work Phone: Squamous epithelial cells de tection in urine sediment by light microscopyon 08-18-2021 Epithelial cells.squamous LM Ql (Urine sed) 0 SEEN /hpf 0-5 [facility] [place] Work Phone: Urine blood detectionon 07-31 RBC Ql (U) Negative Negative [facility] [place] Work Phone: RBC Ql (U) 0 SEEN /hpf 0-5 [facility] [place] Work Phone: Urine clarityon 08-18-2021 Clarity (U) Clear Clear [facility] [place] Work Phone: Urine color determinationon 08-18-2021 Color (U) Yellow Yellow [facility] [place] Work Phone: Urine glucose detectionon Glucose Ql (U) Normal mg/dl Normal [facility] [place] Work Phone: Urine leukocyte esterase det ection by dipstickon 08-18-2021 Leukocyte esterase Test strip Ql (U) Negative Negative [facility] [place] Work Phone: Urine pHon 08-18-2021 pH (U) 7.0 [pH] 5.0 - 8.0 [facility] [place] Work Phone: Urine sediment bacteria coun t by microscopy (number/high power field)on 08-18-2021 Bacteria LM.HPF (Urine sed) [#/Area] 0 /[HPF] None Seen [facility] [place] Work Phone: Urine specific gravity measu rementon 08-18-2021 Specific gravity (U) [Rel density] 1.010 1.002-1.030 [facility] [place] Work Phone: Urobilinogen Auto test strip Ql (U)on 08-18-2021 Urobilinogen Ql (U) 4 mg/dl Normal [facility] Work Phone: Absolute lymphocyte counton 08-16-2021 Lymphocytes Auto (Unsp spec) [#/Vol] 1.71 10*3/uL 0.83-4.51 [facility] Work Phone: Basophil percentageon 2021 Basophils/100 WBC (Bld) 0.3 % 0-1 [facility] Work Phone: Eosinophils/100 WBC (Bld) 0.2 % 0-5 [facility] Work Phone: Neutrophils (Bld) [#/Vol] 8.6 10*3/uL 2.0-7.7 [facility] Work Phone: Neutrophils/100 WBC (Bld) 76.8 % 47-70 [facility] Work Phone: WBC (Bld) [#/Vol] 11.2 10*3/uL 4.4-11.0 [facility] Work Phone: Blood erythrocytes count (nu mber/volume)on 08-16-2021 RBC (Bld) [#/Vol] 4.42 10*6/uL 4.6-6.2 [facility] Work Phone: Blood hemoglobin measurement (mass/volume)on 08-16-2021 Hemoglobin (Bld) [Mass/Vol] 13.4 g/dL 13.0-16.5 [facility] Work Phone: Blood lymphocytes/100 leukoc yteson 08-16-2021 Lymphocytes/100 WBC (Bld) 15.2 % 19-41 [facility] Work Phone: Blood monocytes/100 leukocyt eson 08-16-2021 Monocytes/100 WBC (Bld) 7.1 % 0-10 [facility] Work Phone: Blood platelet mean volumeon 08-16-2021 Platelet mean volume (Bld) [Entitic vol] 11.0 fL 6.2-12.0 [facility] Work Phone: Determination of erythrocyte mean corpuscular volume (MCV)on 08-16-2021 MCV (RBC) [Entitic vol] 91.9 fL 80-94 [facility] Work Phone: Hematocrit Auto (Bld) [Volum e fraction]on 08-16-2021 Hematocrit (Bld) [Volume fraction] 40.6 % 40-54 [facility] Work Phone: Laboratory - Hematology and Cell countson 08-16-2021 Erythrocyte distribution width (RBC) [Entitic vol] 43.0 fL 35.1-43.9 [facility] Work Phone: Erythrocyte distribution width (RBC) [Ratio] 12.7 % 11.6-14.6 [facility] Work Phone: Immature granulocytes/100 WBC (Bld) 0.400 % 0.0-0.9 [facility] Work Phone: Comment on above: IG% - Immature Granu locytes (promyelocytes, myelocytes and metamyelocytes) > 1% indicates that a LEFT SHIFT is Present. MCH (RBC) [Entitic mass] 30.3 pg 27.0-32.0 [facility] Work Phone: Nucleated RBC/100 WBC (Bld) [Ratio] 0 % 0-5 [facility] Work Phone: [phone] MCHC Auto (RBC) [Mass/Vol]on 08-16-2021 MCHC (RBC) [Mass/Vol] 33.0 g/dL 32-36 [facility] Work Phone: [phone] Platelets bldon 08-16-2021 Platelets (Bld) [#/Vol] 187 10*3/uL 150-450 [facility] Work Phone: Absolute lymphocyte counton 08-09-2021 Lymphocytes Auto (Unsp spec) [#/Vol] 1.78 10*3/uL 0.83-4.51 [facility] Work Phone: Basophil percentageon 2021 Basophils/100 WBC (Bld) 0.5 % 0-1 [facility] Work Phone: [phone] Eosinophils/100 WBC (Bld) 0.1 % 0-5 [facility] Work Phone: [phone] Neutrophils (Bld) [#/Vol] 6.0 10*3/uL 2.0-7.7 [facility] Work Phone: [phone] Neutrophils/100 WBC (Bld) 71.3 % 47-70 [facility] Work Phone: WBC (Bld) [#/Vol] 8.4 10*3/uL 4.4-11.0 [facility] Work Phone: Blood erythrocytes count (nu mber/volume)on 08-09-2021 RBC (Bld) [#/Vol] 4.37 10*6/uL 4.6-6.2 [facility]: Blood hemoglobin measurement (mass/volume)on 08-09-2021 Hemoglobin (Bld) [Mass/Vol] 13.5 g/dL 13.0-16.5 [facility] Work Phone: Blood lymphocytes/100 leukoc yteson 08-09-2021 Lymphocytes/100 WBC (Bld) 21.2 % 19-41 [facility] Work Phone: Blood monocytes/100 leukocyt eson 08-09-2021 Monocytes/100 WBC (Bld) 6.5 % 0-10 [facility] Work Phone: Blood platelet mean volumeon 08-09-2021 Platelet mean volume (Bld) [Entitic vol] 11.1 fL 6.2-12.0 [facility] Work Phone: Determination of erythrocyte mean corpuscular volume (MCV)on 08-09-2021 MCV (RBC) [Entitic vol] 91.3 fL 80-94 [facility] Work Phone: Hematocrit Auto (Bld) [Volum e fraction]on 08-09-2021 Hematocrit (Bld) [Volume fraction] 39.9 % 40-54 [facility] Work Phone: Laboratory - Hematology and Cell countson 08-09-2021 Erythrocyte distribution width (RBC) [Entitic vol] 41.4 fL 35.1-43.9 [facility] Work Phone: Erythrocyte distribution width (RBC) [Ratio] 12.5 % 11.6-14.6 [facility] Work Phone: Immature granulocytes/100 WBC (Bld) 0.400 % 0.0-0.9 [facility] Work Phone: Comment on above: IG% - Immature Granu locytes (promyelocytes, myelocytes and metamyelocytes) > 1% indicates that a LEFT SHIFT is Present. MCH (RBC) [Entitic mass] 30.9 pg 27.0-32.0 [facility] Work Phone: Nucleated RBC/100 WBC (Bld) [Ratio] 0 % 0-5 [facility] Work Phone: MCHC Auto (RBC) [Mass/Vol]on 08-09-2021 MCHC (RBC) [Mass/Vol] 33.8 g/dL 32-36 [facility] Work Phone: Platelets bldon 08-09-2021 Platelets (Bld) [#/Vol] 177 10*3/uL 150-450 [facility] Work Phone: Absolute lymphocyte counton 08-02-2021 Lymphocytes Auto (Unsp spec) [#/Vol] 1.69 10*3/uL 0.83-4.51 [facility] Work Phone: Basophil percentageon 2021 Basophils/100 WBC (Bld) 0.3 % 0-1 [facility] Work Phone: Eosinophils/100 WBC (Bld) 0.3 % 0-5 [facility] Work Phone: Neutrophils (Bld) [#/Vol] 3.8 10*3/uL 2.0-7.7 [facility] Work Phone: Neutrophils/100 WBC (Bld) 61.9 % 47-70 [facility] Work Phone: WBC (Bld) [#/Vol] 6.1 10*3/uL 4.4-11.0 [facility] Work Phone: Blood erythrocytes count (nu mber/volume)on 08-02-2021 RBC (Bld) [#/Vol] 4.54 10*6/uL 4.6-6.2 [facility] Work Phone: [phone] Blood hemoglobin measurement (mass/volume)on 08-02-2021 Hemoglobin (Bld) [Mass/Vol] 13.8 g/dL 13.0-16.5 [facility] Work Phone: Blood lymphocytes/100 leukoc yteson 08-02-2021 Lymphocytes/100 WBC (Bld) 27.7 % 19-41 [facility] Work Phone: Blood monocytes/100 leukocyt eson 08-02-2021 Monocytes/100 WBC (Bld) 9.5 % 0-10 [facility] Work Phone: Blood platelet mean volumeon 08-02-2021 Platelet mean volume (Bld) [Entitic vol] 11.2 fL 6.2-12.0 [facility] Work Phone: Determination of erythrocyte mean corpuscular volume (MCV)on 08-02-2021 MCV (RBC) [Entitic vol] 90.1 fL 80-94 [facility] Work Phone: Hematocrit Auto (Bld) [Volum e fraction]on 08-02-2021 Hematocrit (Bld) [Volume fraction] 40.9 % 40-54 [facility] Work Phone: Laboratory - Hematology and Cell countson 08-02-2021 Erythrocyte distribution width (RBC) [Entitic vol] 40.3 fL 35.1-43.9 [facility] Work Phone: Erythrocyte distribution width (RBC) [Ratio] 12.4 % 11.6-14.6 [facility] Work Phone: Immature granulocytes/100 WBC (Bld) 0.300 % 0.0-0.9 [facility] Work Phone: Comment on above: IG% - Immature Granu locytes (promyelocytes, myelocytes and metamyelocytes) > 1% indicates that a LEFT SHIFT is Present. MCH (RBC) [Entitic mass] 30.4 pg 27.0-32.0 [facility] Work Phone: Nucleated RBC/100 WBC (Bld) [Ratio] 0 % 0-5 [facility] Work Phone: MCHC Auto (RBC) [Mass/Vol]on 08-02-2021 MCHC (RBC) [Mass/Vol] 33.7 g/dL 32-36 [facility] Work Phone: Platelets bldon 08-02-2021 Platelets (Bld) [#/Vol] 192 10*3/uL 150-450 [facility] Work Phone: [phone] Absolute lymphocyte counton 07-26-2021 Lymphocytes Auto (Unsp spec) [#/Vol] 1.83 10*3/uL 0.83-4.51 [facility] Work Phone: Basophil percentageon 2021 Basophils/100 WBC (Bld) 0.5 % 0-1 [facility] Work Phone: [phone] Eosinophils/100 WBC (Bld) 0.3 % 0-5 [facility] Work Phone: [phone] Neutrophils (Bld) [#/Vol] 3.3 10*3/uL 2.0-7.7 [facility] Work Phone: [phone] Neutrophils/100 WBC (Bld) 58.1 % 47-70 [facility] Work Phone: WBC (Bld) [#/Vol] 5.7 10*3/uL 4.4-11.0 [facility] Work Phone: [phone] Blood erythrocytes count (nu mber/volume)on 07-26-2021 RBC (Bld) [#/Vol] 4.21 10*6/uL 4.6-6.2 [facility] Work Phone: [phone] Blood hemoglobin measurement (mass/volume)on 07-26-2021 Hemoglobin (Bld) [Mass/Vol] 12.9 g/dL 13.0-16.5 [facility] Work Phone: Blood lymphocytes/100 leukoc yteson 07-26-2021 Lymphocytes/100 WBC (Bld) 31.9 % 19-41 [facility] Work Phone: [phone] Blood monocytes/100 leukocyt eson 07-26-2021 Monocytes/100 WBC (Bld) 8.9 % 0-10 W [facility] Work Phone: Blood platelet mean volumeon 07-26-2021 Platelet mean volume (Bld) [Entitic vol] 11.5 fL 6.2-12.0 [facility] Work Phone: Determination of erythrocyte mean corpuscular volume (MCV)on 07-26-2021 MCV (RBC) [Entitic vol] 90.7 fL 80-94 [facility] Work Phone: Hematocrit Auto (Bld) [Volum e fraction]on 07-26-2021 Hematocrit (Bld) [Volume fraction] 38.2 % 40-54 [facility] Work Phone: Laboratory - Hematology and Cell countson 07-26-2021 Erythrocyte distribution width (RBC) [Entitic vol] 41.2 fL 35.1-43.9 [facility] Work Phone: Erythrocyte distribution width (RBC) [Ratio] 12.5 % 11.6-14.6 [facility] Work Phone: Immature granulocytes/100 WBC (Bld) 0.300 % 0.0-0.9 [facility] Work Phone: Comment on above: IG% - Immature Granu locytes (promyelocytes, myelocytes and metamyelocytes) > 1% indicates that a LEFT SHIFT is Present. MCH (RBC) [Entitic mass] 30.6 pg 27.0-32.0 [facility] Work Phone: Nucleated RBC/100 WBC (Bld) [Ratio] 0 % 0-5 [facility] Work Phone: MCHC Auto (RBC) [Mass/Vol]on 07-26-2021 MCHC (RBC) [Mass/Vol] 33.8 g/dL 32-36 [facility] Work Phone: Platelets bldon 07-26-2021 Platelets (Bld) [#/Vol] 180 10*3/uL 150-450 [facility] Work Phone: Absolute lymphocyte counton 07-19-2021 Lymphocytes Auto (Unsp spec) [#/Vol] 2.04 10*3/uL 0.83-4.51 [facility] Work Phone: Basophil percentageon 2021 Basophils/100 WBC (Bld) 0.3 % 0-1 [facility] Work Phone: Eosinophils/100 WBC (Bld) 0.4 % 0-5 [facility] Work Phone: Neutrophils (Bld) [#/Vol] 4.0 10*3/uL 2.0-7.7 [facility] Work Phone: Neutrophils/100 WBC (Bld) 59.2 % 47-70 [facility] Work Phone: WBC (Bld) [#/Vol] 6.7 10*3/uL 4.4-11.0 [facility]: Blood erythrocytes count (nu mber/volume)on 07-19-2021 RBC (Bld) [#/Vol] 4.53 10*6/uL 4.6-6.2 [facility] Work [facility]: Blood hemoglobin measurement (mass/volume)on 07-19-2021 Hemoglobin (Bld) [Mass/Vol] 14.1 g/dL 13.0-16.5 [facility] Work Phone: Blood lymphocytes/100 leukoc yteson 07-19-2021 Lymphocytes/100 WBC (Bld) 30.5 % 19-41 [facility] Work Phone: Blood monocytes/100 leukocyt eson 07-19-2021 Monocytes/100 WBC (Bld) 9.0 % 0-10 W [facility] Work Phone: Blood platelet mean volumeon 07-19-2021 Platelet mean volume (Bld) [Entitic vol] 11.4 fL 6.2-12.0 [facility] Work Phone: Determination of erythrocyte mean corpuscular volume (MCV)on 07-19-2021 MCV (RBC) [Entitic vol] 90.5 fL 80-94 [facility] Work Phone: Hematocrit Auto (Bld) [Volum e fraction]on 07-19-2021 Hematocrit (Bld) [Volume fraction] 41.0 % 40-54 [facility] Work Phone: Laboratory - Hematology and Cell countson 07-19-2021 Erythrocyte distribution width (RBC) [Entitic vol] 41.1 fL 35.1-43.9 [facility] Work Phone: Erythrocyte distribution width (RBC) [Ratio] 12.5 % 11.6-14.6 [facility] Work Phone: Immature granulocytes/100 WBC (Bld) 0.600 % 0.0-0.9 [facility] Work Phone: Comment on above: IG% - Immature Granu locytes (promyelocytes, myelocytes and metamyelocytes) > 1% indicates that a LEFT SHIFT is Present. MCH (RBC) [Entitic mass] 31.1 pg 27.0-32.0 [facility] Work Phone: Nucleated RBC/100 WBC (Bld) [Ratio] 0 % 0-5 [facility] Work Phone: MCHC Auto (RBC) [Mass/Vol]on 07-19-2021 MCHC (RBC) [Mass/Vol] 34.4 g/dL 32-36 [facility] Work Phone: Platelets bldon 07-19-2021 Platelets (Bld) [#/Vol] 193 10*3/uL 150-450 [facility] Work Phone: Absolute lymphocyte counton 07-12-2021 Lymphocytes Auto (Unsp spec) [#/Vol] 1.42 10*3/uL 0.83-4.51 [facility] Work Phone: Basophil percentageon 2021 Basophils/100 WBC (Bld) 0.6 % 0-1 [facility] Work Phone: Eosinophils/100 WBC (Bld) 0.3 % 0-5 [facility] Work Phone: Neutrophils (Bld) [#/Vol] 4.7 10*3/uL 2.0-7.7 [facility] Work Phone: Neutrophils/100 WBC (Bld) 67.3 % 47-70 [facility] Work Phone: WBC (Bld) [#/Vol] 7.0 10*3/uL 4.4-11.0 [facility] Work [facility]: Blood erythrocytes count (nu mber/volume)on 07-12-2021 RBC (Bld) [#/Vol] 4.61 10*6/uL 4.6-6.2 [facility] Work Phone: Blood hemoglobin measurement (mass/volume)on 07-12-2021 Hemoglobin (Bld) [Mass/Vol] 14.4 g/dL 13.0-16.5 [facility] Work Phone: Blood lymphocytes/100 leukoc yteson 07-12-2021 Lymphocytes/100 WBC (Bld) 20.4 % 19-41 [facility] Work Phone: Blood monocytes/100 leukocyt eson 07-12-2021 Monocytes/100 WBC (Bld) 11.1 % 0-10 [facility] Work Phone: [phone] Blood platelet mean volumeon 07-12-2021 Platelet mean volume (Bld) [Entitic vol] 11.2 fL 6.2-12.0 [facility] Work Phone: Determination of erythrocyte mean corpuscular volume (MCV)on 07-12-2021 MCV (RBC) [Entitic vol] 91.1 fL 80-94 [facility] Work Phone: Hematocrit Auto (Bld) [Volum e fraction]on 07-12-2021 Hematocrit (Bld) [Volume fraction] 42.0 % 40-54 [facility] Work Phone: Laboratory - Hematology and Cell countson 07-12-2021 Erythrocyte distribution width (RBC) [Entitic vol] 41.4 fL 35.1-43.9 [facility] Work Phone: Erythrocyte distribution width (RBC) [Ratio] 12.6 % 11.6-14.6 [facility] Work Phone: Immature granulocytes/100 WBC (Bld) 0.300 % 0.0-0.9 [facility] Work Phone: Comment on above: IG% - Immature Granu locytes (promyelocytes, myelocytes and metamyelocytes) > 1% indicates that a LEFT SHIFT is Present. MCH (RBC) [Entitic mass] 31.2 pg 27.0-32.0 [facility] Work Phone: Nucleated RBC/100 WBC (Bld) [Ratio] 0 % 0-5 [facility] Work Phone: MCHC Auto (RBC) [Mass/Vol]on 07-12-2021 MCHC (RBC) [Mass/Vol] 34.3 g/dL 32-36 [facility] Work Phone: Platelets bldon 07-12-2021 Platelets (Bld) [#/Vol] 184 10*3/uL 150-450 [facility] Work Phone: Absolute lymphocyte counton 07-05-2021 Lymphocytes Auto (Unsp spec) [#/Vol] 1.55 10*3/uL 0.83-4.51 [facility] Work Phone: Basophil percentageon 2021 Basophils/100 WBC (Bld) 0.4 % 0-1 [facility] Work Phone: Cholesterol [Mass/Vol] 148 mg/dL <200 [facility] Work Phone: Comment on above: <200 mg/dL Desirable 200-240 mg/dL Borderline >240 mg/dL High Risk Eosinophils/100 WBC (Bld) 0.3 % 0-5 [facility] Work Phone: Neutrophils (Bld) [#/Vol] 5.5 10*3/uL 2.0-7.7 [facility] Work Phone: Neutrophils/100 WBC (Bld) 70.9 % 47-70 [facility] Work Phone: Triglyceride [Mass/Vol] 201 mg/dL <199 [facility] Work Phone: Comment on above: The drugs N-Acetylcy steine and Metamizole may falsely depress this assay.Serum Triglycerides Reference Interval Normal <150 mg/dL Borderline high 150 - 199 mg/dL High 200 - 499 mg/dL Very High > or = 500 mg/dL WBC (Bld) [#/Vol] 7.8 10*3/uL 4.4-11.0 [facility] Work Phone: Blood erythrocytes count (nu mber/volume)on 07-05-2021 RBC (Bld) [#/Vol] 4.46 10*6/uL 4.6-6.2 [facility] Work [facility]: Blood hemoglobin measurement (mass/volume)on 07-05-2021 Hemoglobin (Bld) [Mass/Vol] 13.4 g/dL 13.0-16.5 [facility] Work Phone: Blood lymphocytes/100 leukoc yteson 07-05-2021 Lymphocytes/100 WBC (Bld) 20.0 % 19-41 [facility] Work Phone: Blood monocytes/100 leukocyt eson 07-05-2021 Monocytes/100 WBC (Bld) 8.1 % 0-10 [facility] Work Phone: Blood platelet mean volumeon 07-05-2021 Platelet mean volume (Bld) [Entitic vol] 11.7 fL 6.2-12.0 [facility] Work Phone: Determination of erythrocyte mean corpuscular volume (MCV)on 07-05-2021 MCV (RBC) [Entitic vol] 91.0 fL 80-94 [facility] Work Phone: Hematocrit Auto (Bld) [Volum e fraction]on 07-05-2021 Hematocrit (Bld) [Volume fraction] 40.6 % 40-54 [facility] Work Phone: Laboratory - Hematology and Cell countson 07-05-2021 Erythrocyte distribution width (RBC) [Entitic vol] 41.9 fL 35.1-43.9 [facility] Work Phone: Erythrocyte distribution width (RBC) [Ratio] 12.8 % 11.6-14.6 [facility] Work Phone: Immature granulocytes/100 WBC (Bld) 0.300 % 0.0-0.9 [facility] Work Phone: Comment on above: IG% - Immature Granu locytes (promyelocytes, myelocytes and metamyelocytes) > 1% indicates that a LEFT SHIFT is Present. MCH (RBC) [Entitic mass] 30.0 pg 27.0-32.0 [facility] Work Phone: Nucleated RBC/100 WBC (Bld) [Ratio] 0 % 0-5 [facility] Work Phone: MCHC Auto (RBC) [Mass/Vol]on 07-05-2021 MCHC (RBC) [Mass/Vol] 33.0 g/dL 32-36 [facility] Work Phone: Platelets bldon 07-05-2021 Platelets (Bld) [#/Vol] 186 10*3/uL 150-450 [facility] Work Phone: Serum or plasma cholesterol in HDL measurement (mass/volume)on 07-05-2021 Cholesterol in HDL [Mass/Vol] 30 mg/dL >40 [facility] Work Phone: Comment on above: The drugs N-Acetylcy steine and Metamizole may falsely depress this assay. Reference Range HDL <40 mg/dL Low HDL Cholesterol HDL >or= 60 mg/dL High HDL Cholesterol Serum or plasma cholesterol in VLDL measurement (mass/volume)on 07-05-2021 Cholesterol in VLDL [Mass/Vol] 40 mg/dL 5-40 [facility] Work Phone: Serum or plasma low density lipoprotein (LDL) cholesterol measurement (mass/volume)on 07-05-2021 Cholesterol in LDL [Mass/Vol] 78 mg/dL 0-130 [facility] Work Phone: Absolute lymphocyte counton 06-28-2021 Lymphocytes Auto (Unsp spec) [#/Vol] 2.01 10*3/uL 0.83-4.51 [facility] Work Phone: Basophil percentageon 2021 Basophils/100 WBC (Bld) 0.5 % 0-1 [facility] Work Phone: Eosinophils/100 WBC (Bld) 0.3 % 0-5 [facility] Work Phone: Neutrophils (Bld) [#/Vol] 3.3 10*3/uL 2.0-7.7 [facility] Work Phone: Neutrophils/100 WBC (Bld) 55.5 % 47-70 [facility] Work Phone: WBC (Bld) [#/Vol] 6.0 10*3/uL 4.4-11.0 [facility] Work Phone: [phone] Blood erythrocytes count (nu mber/volume)on 06-28-2021 RBC (Bld) [#/Vol] 4.32 10*6/uL 4.6-6.2 [facility] Work Phone: Blood hemoglobin measurement (mass/volume)on 06-28-2021 Hemoglobin (Bld) [Mass/Vol] 13.5 g/dL 13.0-16.5 [facility] Work Phone: Blood lymphocytes/100 leukoc yteson 06-28-2021 Lymphocytes/100 WBC (Bld) 33.5 % 19-41 [facility] Work Phone: Blood monocytes/100 leukocyt eson 06-28-2021 Monocytes/100 WBC (Bld) 10.0 % 0-10 [facility] Work Phone: Blood platelet mean volumeon 06-28-2021 Platelet mean volume (Bld) [Entitic vol] 11.8 fL 6.2-12.0 [facility] Work Phone: Determination of erythrocyte mean corpuscular volume (MCV)on 06-28-2021 MCV (RBC) [Entitic vol] 89.8 fL 80-94 [facility] Work Phone: Hematocrit Auto (Bld) [Volum e fraction]on 06-28-2021 Hematocrit (Bld) [Volume fraction] 38.8 % 40-54 [facility] Work Phone: Laboratory - Hematology and Cell countson 06-28-2021 Erythrocyte distribution width (RBC) [Entitic vol] 40.6 fL 35.1-43.9 [facility] Work Phone: Erythrocyte distribution width (RBC) [Ratio] 12.5 % 11.6-14.6 [facility] Work Phone: Immature granulocytes/100 WBC (Bld) 0.200 % 0.0-0.9 [facility] Work Phone: Comment on above: IG% - Immature Granu locytes (promyelocytes, myelocytes and metamyelocytes) > 1% indicates that a LEFT SHIFT is Present. MCH (RBC) [Entitic mass] 31.3 pg 27.0-32.0 [facility] Work Phone: Nucleated RBC/100 WBC (Bld) [Ratio] 0 % 0-5 [facility] Work Phone: MCHC Auto (RBC) [Mass/Vol]on 06-28-2021 MCHC (RBC) [Mass/Vol] 34.8 g/dL 32-36 [facility] Work Phone: Platelets bldon 06-28-2021 Platelets (Bld) [#/Vol] 185 10*3/uL 150-450 [facility] Work Phone: Absolute lymphocyte counton 06-21-2021 Lymphocytes Auto (Unsp spec) [#/Vol] 1.78 10*3/uL 0.83-4.51 [facility] Work Phone: Basophil percentageon 2021 Basophils/100 WBC (Bld) 0.3 % 0-1 [facility] Work Phone: [phone] Eosinophils/100 WBC (Bld) 0.4 % 0-5 [facility] Work Phone: [phone] Neutrophils (Bld) [#/Vol] 4.2 10*3/uL 2.0-7.7 [facility] Work Phone: Neutrophils/100 WBC (Bld) 62.7 % 47-70 [facility] Work Phone: WBC (Bld) [#/Vol] 6.8 10*3/uL 4.4-11.0 [facility] Work [facility]: Blood erythrocytes count (nu mber/volume)on 06-21-2021 RBC (Bld) [#/Vol] 4.21 10*6/uL 4.6-6.2 [facility] Work [facility]: Blood hemoglobin measurement (mass/volume)on 06-21-2021 Hemoglobin (Bld) [Mass/Vol] 13.3 g/dL 13.0-16.5 [facility] Work Phone: Blood lymphocytes/100 leukoc yteson 06-21-2021 Lymphocytes/100 WBC (Bld) 26.3 % 19-41 [facility] Work Phone: Blood monocytes/100 leukocyt eson 06-21-2021 Monocytes/100 WBC (Bld) 9.9 % 0-10 [facility] Work Phone: Blood platelet mean volumeon 06-21-2021 Platelet mean volume (Bld) [Entitic vol] 11.5 fL 6.2-12.0 [facility] Work Phone: Determination of erythrocyte mean corpuscular volume (MCV)on 06-21-2021 MCV (RBC) [Entitic vol] 91.0 fL 80-94 [facility] Work Phone: Hematocrit Auto (Bld) [Volum e fraction]on 06-21-2021 Hematocrit (Bld) [Volume fraction] 38.3 % 40-54 [facility] Work Phone: Laboratory - Hematology and Cell countson 06-21-2021 Erythrocyte distribution width (RBC) [Entitic vol] 40.2 fL 35.1-43.9 [facility] Work Phone: Erythrocyte distribution width (RBC) [Ratio] 12.2 % 11.6-14.6 [facility] Work Phone: Immature granulocytes/100 WBC (Bld) 0.400 % 0.0-0.9 [facility] Work Phone: Comment on above: IG% - Immature Granu locytes (promyelocytes, myelocytes and metamyelocytes) > 1% indicates that a LEFT SHIFT is Present. MCH (RBC) [Entitic mass] 31.6 pg 27.0-32.0 [facility] Work Phone: Nucleated RBC/100 WBC (Bld) [Ratio] 0 % 0-5 [facility] Work Phone: MCHC Auto (RBC) [Mass/Vol]on 06-21-2021 MCHC (RBC) [Mass/Vol] 34.7 g/dL 32-36 [facility] Work Phone: Platelets bldon 06-21-2021 Platelets (Bld) [#/Vol] 217 10*3/uL 150-450 [facility] Work Phone: Absolute lymphocyte counton 06-14-2021 Lymphocytes Auto (Unsp spec) [#/Vol] 1.41 10*3/uL 0.83-4.51 [facility] Work Phone: Basophil percentageon 2021 Basophils/100 WBC (Bld) 0.4 % 0-1 [facility] Work Phone: [phone] Chloride [Moles/Vol] 106 mmol/L 98-107 [facility] Work Phone: [phone] Eosinophils/100 WBC (Bld) 0.6 % 0-5 [facility] Work Phone: Glucose [Mass/Vol] 121 mg/dL 74-106 [facility] Work Phone: [phone] Comment on above: Fasting Glucose resu lt from 100 to 125 mg/dL suggests IMPAIRED HOMEOSTASIS per A.D.A. criteria. Neutrophils (Bld) [#/Vol] 4.8 10*3/uL 2.0-7.7 [facility] Work Phone: Neutrophils/100 WBC (Bld) 69.9 % 47-70 [facility] Work Phone: Potassium [Moles/Vol] 3.7 mmol/L 3.5-5.1 [facility] Work Phone: Sodium [Moles/Vol] 140 mmol/L 136-145 [facility] Work Phone: WBC (Bld) [#/Vol] 6.8 10*3/uL 4.4-11.0 [facility] Work Phone: Blood erythrocytes count (nu mber/volume)on 06-14-2021 RBC (Bld) [#/Vol] 4.78 10*6/uL 4.6-6.2 [facility] Work Phone: Blood hemoglobin measurement (mass/volume)on 06-14-2021 Hemoglobin (Bld) [Mass/Vol] 14.9 g/dL 13.0-16.5 [facility] Work Phone: [phone] Blood lymphocytes/100 leukoc yteson 06-14-2021 Lymphocytes/100 WBC (Bld) 20.8 % 19-41 [facility] Work Phone: Blood monocytes/100 leukocyt eson 06-14-2021 Monocytes/100 WBC (Bld) 7.7 % 0-10 [facility] Work Phone: Blood platelet mean volumeon 06-14-2021 Platelet mean volume (Bld) [Entitic vol] 11.5 fL 6.2-12.0 [facility] Work Phone: Determination of erythrocyte mean corpuscular volume (MCV)on 06-14-2021 MCV (RBC) [Entitic vol] 89.5 fL 80-94 [facility] Work Phone: Hematocrit Auto (Bld) [Volum e fraction]on 06-14-2021 Hematocrit (Bld) [Volume fraction] 42.8 % 40-54 [facility] Work Phone: Laboratory - Chemistry and C hemistry - challengeon 06-14-2021 CO2 [Moles/Vol] 27.0 mmol/L 21.0-32.0 [facility] Work Phone: Urea nitrogen/Creatinine [Mass ratio] 35.0 mg/mg 10-20 [facility] Work Phone: Laboratory - Hematology and Cell countson 06-14-2021 Erythrocyte distribution width (RBC) [Entitic vol] 39.3 fL 35.1-43.9 [facility] Work Phone: Erythrocyte distribution width (RBC) [Ratio] 12.0 % 11.6-14.6 [facility] Work Phone: Immature granulocytes/100 WBC (Bld) 0.600 % 0.0-0.9 [facility] Work Phone: Comment on above: IG% - Immature Granu locytes (promyelocytes, myelocytes and metamyelocytes) > 1% indicates that a LEFT SHIFT is Present. MCH (RBC) [Entitic mass] 31.2 pg 27.0-32.0 [facility] Work Phone: Nucleated RBC/100 WBC (Bld) [Ratio] 0 % 0-5 [facility] Work Phone: MCHC Auto (RBC) [Mass/Vol]on 06-14-2021 MCHC (RBC) [Mass/Vol] 34.8 g/dL 32-36 [facility] Work Phone: No Panel Informationon 06-14 Estimated GFR (MDRD) Amer 185 mL/min >60 [facility] Work Phone: Comment on above: GFR Calc Estimated GFR (MDRD) Non-Af Amer 153 mL/min >60 [facility] Work Phone: Comment on above: Non- GFR Calc Platelets bldon 06-14-2021 Platelets (Bld) [#/Vol] 223 10*3/uL 150-450 [facility] Work Phone: Serum or plasma calcium gordy urement (mass/volume)on 06-14-2021 Calcium [Mass/Vol] 8.0 mg/dL 8.5-10.1 [facility] Work Phone: Serum or plasma creatinine m easurement (mass/volume)on 06-14-2021 Creatinine [Mass/Vol] 0.57 mg/dL 0.70-1.30 [facility] Work Phone: Comment on above: The validity of the calculated GFR & GFRAA in patients over 70 years has not been determined. Clinical correlation is essential. Serum or plasma urea nitroge n measurement (mass/volume)on 06-14-2021 Urea nitrogen [Mass/Vol] 20 mg/dL 7-18 [facility] Work Phone: Thin prep Papanicolaou smear with manual screeningon 06-14-2021 Thin prep Papanicolaou smear with manual screening 7 5-15 [facility] Work Phone: Absolute lymphocyte counton 06-07-2021 Lymphocytes Auto (Unsp spec) [#/Vol] 1.38 10*3/uL 0.83-4.51 [facility] Work Phone: Basophil percentageon 2021 Basophils/100 WBC (Bld) 0.2 % 0-1 [facility] Work Phone: Eosinophils/100 WBC (Bld) 0.0 % 0-5 [facility] Work Phone: Neutrophils (Bld) [#/Vol] 7.3 10*3/uL 2.0-7.7 [facility] Work Phone: Neutrophils/100 WBC (Bld) 75.3 % 47-70 [facility] Work Phone: WBC (Bld) [#/Vol] 9.7 10*3/uL 4.4-11.0 [facility] Work Phone: Blood erythrocytes count (nu mber/volume)on 06-07-2021 RBC (Bld) [#/Vol] 4.48 10*6/uL 4.6-6.2 [facility]: Blood hemoglobin measurement (mass/volume)on 06-07-2021 Hemoglobin (Bld) [Mass/Vol] 13.8 g/dL 13.0-16.5 [facility] Work Phone: Blood lymphocytes/100 leukoc yteson 06-07-2021 Lymphocytes/100 WBC (Bld) 14.2 % 19-41 [facility] Work Phone: Blood monocytes/100 leukocyt eson 06-07-2021 Monocytes/100 WBC (Bld) 10.2 % 0-10 [facility] Work Phone: Blood platelet mean volumeon 06-07-2021 Platelet mean volume (Bld) [Entitic vol] 11.9 fL 6.2-12.0 [facility] Work Phone: Determination of erythrocyte mean corpuscular volume (MCV)on 06-07-2021 MCV (RBC) [Entitic vol] 92.9 fL 80-94 [facility] Work Phone: Hematocrit Auto (Bld) [Volum e fraction]on 06-07-2021 Hematocrit (Bld) [Volume fraction] 41.6 % 40-54 [facility] Work Phone: Laboratory - Hematology and Cell countson 06-07-2021 Erythrocyte distribution width (RBC) [Entitic vol] 43.8 fL 35.1-43.9 [facility] Work Phone: Erythrocyte distribution width (RBC) [Ratio] 12.8 % 11.6-14.6 [facility] Work Phone: Immature granulocytes/100 WBC (Bld) 0.100 % 0.0-0.9 [facility] Work Phone: Comment on above: IG% - Immature Granu locytes (promyelocytes, myelocytes and metamyelocytes) > 1% indicates that a LEFT SHIFT is Present. MCH (RBC) [Entitic mass] 30.8 pg 27.0-32.0 [facility] Work Phone: Nucleated RBC/100 WBC (Bld) [Ratio] 0 % 0-5 [facility] Work Phone: MCHC Auto (RBC) [Mass/Vol]on 06-07-2021 MCHC (RBC) [Mass/Vol] 33.2 g/dL 32-36 [facility] Work Phone: Platelets bldon 06-07-2021 Platelets (Bld) [#/Vol] 152 10*3/uL 150-450 [facility] Work Phone: Absolute lymphocyte counton 05-31-2021 Lymphocytes Auto (Unsp spec) [#/Vol] 1.72 10*3/uL 0.83-4.51 [facility] Work Phone: Basophil percentageon 2021 Basophils/100 WBC (Bld) 0.7 % 0-1 [facility] Work Phone: [phone] Eosinophils/100 WBC (Bld) 1.1 % 0-5 [facility] Work Phone: Neutrophils (Bld) [#/Vol] 3.3 10*3/uL 2.0-7.7 [facility] Work Phone: Neutrophils/100 WBC (Bld) 58.5 % 47-70 [facility] Work Phone: WBC (Bld) [#/Vol] 5.6 10*3/uL 4.4-11.0 [facility] Work Phone: Blood erythrocytes count (nu mber/volume)on 05-31-2021 RBC (Bld) [#/Vol] 4.44 10*6/uL 4.6-6.2 [facility] Work Phone: Blood hemoglobin measurement (mass/volume)on 05-31-2021 Hemoglobin (Bld) [Mass/Vol] 13.6 g/dL 13.0-16.5 [facility] Work Phone: Blood lymphocytes/100 leukoc yteson 05-31-2021 Lymphocytes/100 WBC (Bld) 30.7 % 19-41 [facility] Work Phone: Blood monocytes/100 leukocyt eson 05-31-2021 Monocytes/100 WBC (Bld) 8.6 % 0-10 [facility] Work Phone: Blood platelet mean volumeon 05-31-2021 Platelet mean volume (Bld) [Entitic vol] 11.2 fL 6.2-12.0 [facility] Work Phone: Determination of erythrocyte mean corpuscular volume (MCV)on 05-31-2021 MCV (RBC) [Entitic vol] 92.1 fL 80-94 [facility] Work Phone: Hematocrit Auto (Bld) [Volum e fraction]on 05-31-2021 Hematocrit (Bld) [Volume fraction] 40.9 % 40-54 [facility] Work Phone: Laboratory - Hematology and Cell countson 05-31-2021 Erythrocyte distribution width (RBC) [Entitic vol] 42.2 fL 35.1-43.9 [facility] Work Phone: Erythrocyte distribution width (RBC) [Ratio] 12.4 % 11.6-14.6 [facility] Work Phone: [phone] Immature granulocytes/100 WBC (Bld) 0.400 % 0.0-0.9 [facility] Work Phone: Comment on above: IG% - Immature Granu locytes (promyelocytes, myelocytes and metamyelocytes) > 1% indicates that a LEFT SHIFT is Present. MCH (RBC) [Entitic mass] 30.6 pg 27.0-32.0 [facility] Work Phone: [phone] Nucleated RBC/100 WBC (Bld) [Ratio] 0 % 0-5 [facility] Work Phone: [phone] MCHC Auto (RBC) [Mass/Vol]on 05-31-2021 MCHC (RBC) [Mass/Vol] 33.3 g/dL 32-36 [facility] Work Phone: Platelets bldon 05-31-2021 Platelets (Bld) [#/Vol] 189 10*3/uL 150-450 [facility] Work Phone: [phone] Absolute lymphocyte counton 05-24-2021 Lymphocytes Auto (Unsp spec) [#/Vol] 1.58 10*3/uL 0.83-4.51 [facility] Work Phone: [phone] Basophil percentageon 2021 Basophils/100 WBC (Bld) 0.8 % 0-1 [facility] Work Phone: Eosinophils/100 WBC (Bld) 2.4 % 0-5 [facility] Work Phone: Neutrophils (Bld) [#/Vol] 3.8 10*3/uL 2.0-7.7 [facility] Work Phone: Neutrophils/100 WBC (Bld) 60.3 % 47-70 [facility] Work Phone: WBC (Bld) [#/Vol] 6.3 10*3/uL 4.4-11.0 [facility] Work Phone: Blood erythrocytes count (nu mber/volume)on 05-24-2021 RBC (Bld) [#/Vol] 4.50 10*6/uL 4.6-6.2 [facility] Work Phone: Blood hemoglobin measurement (mass/volume)on 05-24-2021 Hemoglobin (Bld) [Mass/Vol] 13.7 g/dL 13.0-16.5 [facility] Work Phone: Blood lymphocytes/100 leukoc yteson 05-24-2021 Lymphocytes/100 WBC (Bld) 25.0 % 19-41 [facility] Work Phone: Blood monocytes/100 leukocyt eson 05-24-2021 Monocytes/100 WBC (Bld) 11.2 % 0-10 [facility] Work Phone: Blood platelet mean volumeon 05-24-2021 Platelet mean volume (Bld) [Entitic vol] 11.3 fL 6.2-12.0 [facility] Work Phone: Determination of erythrocyte mean corpuscular volume (MCV)on 05-24-2021 MCV (RBC) [Entitic vol] 92.9 fL 80-94 [facility] Work Phone: Hematocrit Auto (Bld) [Volum e fraction]on 05-24-2021 Hematocrit (Bld) [Volume fraction] 41.8 % 40-54 [facility] Work Phone: Laboratory - Hematology and Cell countson 05-24-2021 Erythrocyte distribution width (RBC) [Entitic vol] 42.8 fL 35.1-43.9 [facility] Work Phone: Erythrocyte distribution width (RBC) [Ratio] 12.6 % 11.6-14.6 [facility] Work Phone: Immature granulocytes/100 WBC (Bld) 0.300 % 0.0-0.9 [facility] Work Phone: Comment on above: IG% - Immature Granu locytes (promyelocytes, myelocytes and metamyelocytes) > 1% indicates that a LEFT SHIFT is Present. MCH (RBC) [Entitic mass] 30.4 pg 27.0-32.0 [facility] Work Phone: Nucleated RBC/100 WBC (Bld) [Ratio] 0 % 0-5 [facility] Work Phone: MCHC Auto (RBC) [Mass/Vol]on 05-24-2021 MCHC (RBC) [Mass/Vol] 32.8 g/dL 32-36 [facility] Work Phone: Platelets bldon 05-24-2021 Platelets (Bld) [#/Vol] 207 10*3/uL 150-450 [facility] Work Phone: Absolute lymphocyte counton 05-17-2021 Lymphocytes Auto (Unsp spec) [#/Vol] 1.59 10*3/uL 0.83-4.51 [facility] Work Phone: Basophil percentageon 2021 Basophils/100 WBC (Bld) 0.7 % 0-1 [facility] Work Phone: Eosinophils/100 WBC (Bld) 1.7 % 0-5 [facility] Work Phone: Neutrophils (Bld) [#/Vol] 3.5 10*3/uL 2.0-7.7 [facility] Work Phone: Neutrophils/100 WBC (Bld) 59.5 % 47-70 [facility] Work Phone: WBC (Bld) [#/Vol] 5.9 10*3/uL 4.4-11.0 [facility]: Blood erythrocytes count (nu mber/volume)on 05-17-2021 RBC (Bld) [#/Vol] 4.35 10*6/uL 4.6-6.2 [facility] Work Phone: Blood hemoglobin measurement (mass/volume)on 05-17-2021 Hemoglobin (Bld) [Mass/Vol] 13.4 g/dL 13.0-16.5 [facility] Work Phone: Blood lymphocytes/100 leukoc yteson 05-17-2021 Lymphocytes/100 WBC (Bld) 26.9 % 19-41 [facility] Work Phone: Blood monocytes/100 leukocyt eson 05-17-2021 Monocytes/100 WBC (Bld) 11.0 % 0-10 [facility] Work Phone: Blood platelet mean volumeon 05-17-2021 Platelet mean volume (Bld) [Entitic vol] 11.5 fL 6.2-12.0 [facility] Work Phone: Determination of erythrocyte mean corpuscular volume (MCV)on 05-17-2021 MCV (RBC) [Entitic vol] 92.9 fL 80-94 [facility] Work Phone: Hematocrit Auto (Bld) [Volum e fraction]on 05-17-2021 Hematocrit (Bld) [Volume fraction] 40.4 % 40-54 [facility] Work Phone: Laboratory - Hematology and Cell countson 05-17-2021 Erythrocyte distribution width (RBC) [Entitic vol] 43.4 fL 35.1-43.9 [facility] Work Phone: Erythrocyte distribution width (RBC) [Ratio] 12.7 % 11.6-14.6 [facility] Work Phone: Immature granulocytes/100 WBC (Bld) 0.200 % 0.0-0.9 [facility] Work Phone: Comment on above: IG% - Immature Granu locytes (promyelocytes, myelocytes and metamyelocytes) > 1% indicates that a LEFT SHIFT is Present. MCH (RBC) [Entitic mass] 30.8 pg 27.0-32.0 [facility] Work Phone: Nucleated RBC/100 WBC (Bld) [Ratio] 0 % 0-5 [facility] Work Phone: MCHC Auto (RBC) [Mass/Vol]on 05-17-2021 MCHC (RBC) [Mass/Vol] 33.2 g/dL 32-36 [facility] Work Phone: Platelets bldon 05-17-2021 Platelets (Bld) [#/Vol] 171 10*3/uL 150-450 [facility] Work Phone: ED Provider Noteon 2 ED Provider Note Emergency Department Encounter [facility] ED Patient: Kathya Hooper : 1955 [...] Solutions Timothy Burton DO 05/15/21 1530 Normal [facility] ED Provider Note [facility] ED eMERGENCY dEPARTMENT eNCOUnter Pt Name: [...] of [place] (more content not included)... Normal [facility] Basophil percentageon 2021 Chloride [Moles/Vol] 105 mmol/L 98-107 [facility] Work Phone: Glucose [Mass/Vol] 96 mg/dL 74-106 [facility] Work Phone: Potassium [Moles/Vol] 3.5 mmol/L 3.5-5.1 [facility] Work Phone: Sodium [Moles/Vol] 141 mmol/L 136-145 [facility] Work Phone: Laboratory - Chemistry and C hemistry - challengeon 05-14-2021 CO2 [Moles/Vol] 30.0 mmol/L 21.0-32.0 [facility] Work Phone: Urea nitrogen/Creatinine [Mass ratio] 39.2 mg/mg 10-20 [facility] Work Phone: No Panel Informationon 05-14 Estimated GFR (MDRD) Amer 210 mL/min >60 [facility] Work Phone: Comment on above: GFR Calc Estimated GFR (MDRD) Non-Af Amer 174 mL/min >60 [facility] Work Phone: Comment on above: Non- GFR Calc Serum or plasma calcium gordy urement (mass/volume)on 05-14-2021 Calcium [Mass/Vol] 8.4 mg/dL 8.5-10.1 [facility] Work Phone: Serum or plasma creatinine m easurement (mass/volume)on 05-14-2021 Creatinine [Mass/Vol] 0.51 mg/dL 0.70-1.30 [facility] Work Phone: Comment on above: The validity of the calculated GFR & GFRAA in patients over 70 years has not been determined. Clinical correlation is essential. Serum or plasma urea nitroge n measurement (mass/volume)on 05-14-2021 Urea nitrogen [Mass/Vol] 20 mg/dL 7-18 [facility] Work Phone: Thin prep Papanicolaou smear with manual screeningon 05-14-2021 Thin prep Papanicolaou smear with manual screening 6 5-15 [facility] Work Phone: Absolute lymphocyte counton 05-10-2021 Lymphocytes Auto (Unsp spec) [#/Vol] 1.65 10*3/uL 0.83-4.51 [facility] Work Phone: Basophil percentageon 2021 Basophils/100 WBC (Bld) 0.5 % 0-1 [facility] Work Phone: [phone] Eosinophils/100 WBC (Bld) 0.7 % 0-5 [facility] Work Phone: Neutrophils (Bld) [#/Vol] 5.6 10*3/uL 2.0-7.7 [facility] Work Phone: [phone] Neutrophils/100 WBC (Bld) 69.5 % 47-70 [facility] Work Phone: [phone] WBC (Bld) [#/Vol] 8.1 10*3/uL 4.4-11.0 [facility] Work Phone: Blood erythrocytes count (nu mber/volume)on 05-10-2021 RBC (Bld) [#/Vol] 4.52 10*6/uL 4.6-6.2 [facility] Work Phone: Blood hemoglobin measurement (mass/volume)on 05-10-2021 Hemoglobin (Bld) [Mass/Vol] 13.8 g/dL 13.0-16.5 [facility] Work Phone: [phone] Blood lymphocytes/100 leukoc yteson 05-10-2021 Lymphocytes/100 WBC (Bld) 20.4 % 19-41 [facility] Work Phone: Blood monocytes/100 leukocyt eson 05-10-2021 Monocytes/100 WBC (Bld) 8.4 % 0-10 [facility] Work Phone: Blood platelet mean volumeon 05-10-2021 Platelet mean volume (Bld) [Entitic vol] 11.3 fL 6.2-12.0 [facility] Work Phone: Determination of erythrocyte mean corpuscular volume (MCV)on 05-10-2021 MCV (RBC) [Entitic vol] 91.8 fL 80-94 [facility] Work Phone: Hematocrit Auto (Bld) [Volum e fraction]on 05-10-2021 Hematocrit (Bld) [Volume fraction] 41.5 % 40-54 [facility] Work Phone: Laboratory - Hematology and Cell countson 05-10-2021 Erythrocyte distribution width (RBC) [Entitic vol] 42.9 fL 35.1-43.9 [facility] Work Phone: Erythrocyte distribution width (RBC) [Ratio] 12.8 % 11.6-14.6 [facility] Work Phone: Immature granulocytes/100 WBC (Bld) 0.500 % 0.0-0.9 [facility] Work Phone: Comment on above: IG% - Immature Granu locytes (promyelocytes, myelocytes and metamyelocytes) > 1% indicates that a LEFT SHIFT is Present. MCH (RBC) [Entitic mass] 30.5 pg 27.0-32.0 [facility] Work Phone: Nucleated RBC/100 WBC (Bld) [Ratio] 0 % 0-5 [facility] Work Phone: MCHC Auto (RBC) [Mass/Vol]on 05-10-2021 MCHC (RBC) [Mass/Vol] 33.3 g/dL 32-36 [facility] Work Phone: Platelets bldon 05-10-2021 Platelets (Bld) [#/Vol] 191 10*3/uL 150-450 [facility] Work Phone: [phone] Absolute lymphocyte counton 05-03-2021 Lymphocytes Auto (Unsp spec) [#/Vol] 1.69 10*3/uL 0.83-4.51 [facility] Work Phone: [phone] Basophil percentageon 2021 Basophils/100 WBC (Bld) 0.6 % 0-1 [facility] Work Phone: Eosinophils/100 WBC (Bld) 0.7 % 0-5 [facility] Work Phone: [phone] Neutrophils (Bld) [#/Vol] 4.6 10*3/uL 2.0-7.7 [facility] Work Phone: [phone] Neutrophils/100 WBC (Bld) 64.4 % 47-70 [facility] Work Phone: [phone] WBC (Bld) [#/Vol] 7.2 10*3/uL 4.4-11.0 [facility] Work [facility]: Blood erythrocytes count (nu mber/volume)on 05-03-2021 RBC (Bld) [#/Vol] 4.55 10*6/uL 4.6-6.2 [facility] Work [facility]: Blood hemoglobin measurement (mass/volume)on 05-03-2021 Hemoglobin (Bld) [Mass/Vol] 14.0 g/dL 13.0-16.5 [facility] Work Phone: Blood lymphocytes/100 leukoc yteson 05-03-2021 Lymphocytes/100 WBC (Bld) 23.6 % 19-41 [facility] Work Phone: [phone] Blood monocytes/100 leukocyt eson 05-03-2021 Monocytes/100 WBC (Bld) 10.3 % 0-10 [facility] Work Phone: [phone] Blood platelet mean volumeon 05-03-2021 Platelet mean volume (Bld) [Entitic vol] 11.7 fL 6.2-12.0 [facility] Work Phone: Determination of erythrocyte mean corpuscular volume (MCV)on 05-03-2021 MCV (RBC) [Entitic vol] 93.2 fL 80-94 [facility] Work Phone: Hematocrit Auto (Bld) [Volum e fraction]on 05-03-2021 Hematocrit (Bld) [Volume fraction] 42.4 % 40-54 [facility] Work Phone: Laboratory - Hematology and Cell countson 05-03-2021 Erythrocyte distribution width (RBC) [Entitic vol] 44.2 fL 35.1-43.9 [facility] Work Phone: Erythrocyte distribution width (RBC) [Ratio] 13.1 % 11.6-14.6 [facility] Work Phone: Immature granulocytes/100 WBC (Bld) 0.400 % 0.0-0.9 [facility] Work Phone: Comment on above: IG% - Immature Granu locytes (promyelocytes, myelocytes and metamyelocytes) > 1% indicates that a LEFT SHIFT is Present. MCH (RBC) [Entitic mass] 30.8 pg 27.0-32.0 [facility] Work Phone: Nucleated RBC/100 WBC (Bld) [Ratio] 0 % 0-5 [facility] Work Phone: MCHC Auto (RBC) [Mass/Vol]on 05-03-2021 MCHC (RBC) [Mass/Vol] 33.0 g/dL 32-36 [facility] Work Phone: Platelets bldon 05-03-2021 Platelets (Bld) [#/Vol] 175 10*3/uL 150-450 [facility] Work Phone: Absolute lymphocyte counton 04-26-2021 Lymphocytes Auto (Unsp spec) [#/Vol] 1.68 10*3/uL 0.83-4.51 [facility] Work Phone: Basophil percentageon 2020 Eosinophils/100 WBC (Bld) 1.1 % 0-5 [facility] Work Phone: Neutrophils (Bld) [#/Vol] 4.5 10*3/uL 2.0-7.7 [facility] Work Phone: WBC (Bld) [#/Vol] 7.2 10*3/uL 4.4-11.0 [facility] Work Phone: Blood erythrocytes count (nu mber/volume)on 04-26-2021 RBC (Bld) [#/Vol] 4.32 10*6/uL 4.6-6.2 [facility] Work Phone: Blood hemoglobin measurement (mass/volume)on 04-26-2021 Hemoglobin (Bld) [Mass/Vol] 13.5 g/dL 13.0-16.5 [facility] Work Phone: Blood lymphocytes/100 leukoc yteson 04-26-2021 Lymphocytes/100 WBC (Bld) 23.5 % 19-41 [facility] Work Phone: Blood monocytes/100 leukocyt eson 04-26-2021 Monocytes/100 WBC (Bld) 11.0 % 0-10 W [facility] Work Phone: Blood platelet mean volumeon 04-26-2021 Platelet mean volume (Bld) [Entitic vol] 11.0 fL 6.2-12.0 [facility] Work Phone: Determination of erythrocyte mean corpuscular volume (MCV)on 04-26-2021 MCV (RBC) [Entitic vol] 93.3 fL 80-94 W [facility] Work Phone: Hematocrit Auto (Bld) [Volum e fraction]on 04-26-2021 Hematocrit (Bld) [Volume fraction] 40.3 % 40-54 [facility] Work Phone: Laboratory - Hematology and Cell countson 04-26-2021 Basophils/100 WBC (Unsp spec) 0.6 % 0-1 [facility] Work Phone: Erythrocyte distribution width (RBC) [Entitic vol] 45.8 fL 35.1-43.9 [facility] Work Phone: Erythrocyte distribution width (RBC) [Ratio] 13.2 % 11.6-14.6 [facility] Work Phone: Immature granulocytes/100 WBC (Bld) 0.600 % 0.0-0.9 [facility] Work Phone: Comment on above: IG% - Immature Granu locytes (promyelocytes, myelocytes and metamyelocytes) > 1% indicates that a LEFT SHIFT is Present. MCH (RBC) [Entitic mass] 31.3 pg 27.0-32.0 [facility] Work Phone: Neutrophils/100 WBC (Bld) 63.2 % 47-70 [facility] Work Phone: Nucleated RBC/100 WBC (Bld) [Ratio] 0 % 0-5 [facility] Work Phone: MCHC Auto (RBC) [Mass/Vol]on 04-26-2021 MCHC (RBC) [Mass/Vol] 33.5 g/dL 32-36 [facility] Work Phone: Platelets bldon 04-26-2021 Platelets (Bld) [#/Vol] 172 10*3/uL 150-450 [facility] Work Phone: Absolute lymphocyte counton 04-19-2021 Lymphocytes Auto (Unsp spec) [#/Vol] 1.31 10*3/uL 0.83-4.51 [facility] Work Phone: Basophil percentageon 2020 Eosinophils/100 WBC (Bld) 2.8 % 0-5 [facility] Work Phone: Neutrophils (Bld) [#/Vol] 3.0 10*3/uL 2.0-7.7 [facility] Work Phone: WBC (Bld) [#/Vol] 5.0 10*3/uL 4.4-11.0 [facility]: Blood erythrocytes count (nu mber/volume)on 04-19-2021 RBC (Bld) [#/Vol] 4.26 10*6/uL 4.6-6.2 [facility]: Blood hemoglobin measurement (mass/volume)on 04-19-2021 Hemoglobin (Bld) [Mass/Vol] 13.2 g/dL 13.0-16.5 [facility] Work Phone: Blood lymphocytes/100 leukoc yteson 04-19-2021 Lymphocytes/100 WBC (Bld) 26.1 % 19-41 [facility] Work Phone: Blood monocytes/100 leukocyt eson 04-19-2021 Monocytes/100 WBC (Bld) 10.0 % 0-10 W [facility] Work Phone: Blood platelet mean volumeon 04-19-2021 Platelet mean volume (Bld) [Entitic vol] 10.9 fL 6.2-12.0 [facility] Work Phone: Determination of erythrocyte mean corpuscular volume (MCV)on 04-19-2021 MCV (RBC) [Entitic vol] 93.7 fL 80-94 W [facility] Work Phone: Hematocrit Auto (Bld) [Volum e fraction]on 04-19-2021 Hematocrit (Bld) [Volume fraction] 39.9 % 40-54 [facility] Work Phone: Laboratory - Hematology and Cell countson 04-19-2021 Basophils/100 WBC (Unsp spec) 1.0 % 0-1 [facility] Work Phone: Erythrocyte distribution width (RBC) [Entitic vol] 46.7 fL 35.1-43.9 [facility] Work Phone: Erythrocyte distribution width (RBC) [Ratio] 13.7 % 11.6-14.6 [facility] Work Phone: [phone] Immature granulocytes/100 WBC (Bld) 0.400 % 0.0-0.9 [facility] Work Phone: Comment on above: IG% - Immature Granu locytes (promyelocytes, myelocytes and metamyelocytes) > 1% indicates that a LEFT SHIFT is Present. MCH (RBC) [Entitic mass] 31.0 pg 27.0-32.0 [facility] Work Phone: [phone] Neutrophils/100 WBC (Bld) 59.7 % 47-70 [facility] Work Phone: [phone] Nucleated RBC/100 WBC (Bld) [Ratio] 0 % 0-5 [facility] Work Phone: [phone] MCHC Auto (RBC) [Mass/Vol]on 04-19-2021 MCHC (RBC) [Mass/Vol] 33.1 g/dL 32-36 [facility] Work Phone: [phone] Platelets bldon 04-19-2021 Platelets (Bld) [#/Vol] 165 10*3/uL 150-450 [facility] Work Phone: [phone] Absolute lymphocyte counton 04-12-2021 Lymphocytes Auto (Unsp spec) [#/Vol] 1.41 10*3/uL 0.83-4.51 [facility] Work Phone: [phone] Basophil percentageon 2020 Bilirubin [Mass/Vol] 0.40 mg/dL 0.20-1.00 [facility] Work Phone: [phone] Comment on above: For patients on eltr ombopag therapy, use of Dimension [place] TBIL is not recommended. Eosinophils/100 WBC (Bld) 0.9 % 0-5 [facility] Work Phone: [phone] Neutrophils (Bld) [#/Vol] 3.4 10*3/uL 2.0-7.7 [facility] Work [phone] Protein [Mass/Vol] 5.7 g/dL 6.4-8.2 [facility] Work Phone: WBC (Bld) [#/Vol] 5.5 10*3/uL 4.4-11.0 [facility] Work Phone: Blood erythrocytes count (nu mber/volume)on 04-12-2021 RBC (Bld) [#/Vol] 4.09 10*6/uL 4.6-6.2 [facility]: Blood hemoglobin measurement (mass/volume)on 04-12-2021 Hemoglobin (Bld) [Mass/Vol] 12.4 g/dL 13.0-16.5 [facility] Work Phone: Blood lymphocytes/100 leukoc yteson 04-12-2021 Lymphocytes/100 WBC (Bld) 25.9 % 19-41 [facility] Work Phone: Blood monocytes/100 leukocyt eson 04-12-2021 Monocytes/100 WBC (Bld) 9.2 % 0-10 W [facility] Work Phone: Blood platelet mean volumeon 04-12-2021 Platelet mean volume (Bld) [Entitic vol] 11.1 fL 6.2-12.0 [facility] Work Phone: Determination of erythrocyte mean corpuscular volume (MCV)on 04-12-2021 MCV (RBC) [Entitic vol] 93.4 fL 80-94 W [facility] Work Phone: Direct bilirubinon Bilirubin.direct [Mass/Vol] 0.08 mg/dL 0.00-0.30 [facility] Work Phone: Hematocrit Auto (Bld) [Volum e fraction]on 04-12-2021 Hematocrit (Bld) [Volume fraction] 38.2 % 40-54 [facility] Work Phone: Laboratory - Chemistry and C hemistry - challengeon 04-12-2021 ALP [Catalytic activity/Vol] 101 U/L 45-117 [facility] Work Phone: ALT [Catalytic activity/Vol] 30 U/L 16-61 [facility] Work Phone: [phone] Globulin (S) [Mass/Vol] 2.9 g/dL 2.2-4.2 W [facility] Work Phone: Laboratory - Hematology and Cell countson 04-12-2021 Basophils/100 WBC (Unsp spec) 0.6 % 0-1 [facility] Work Phone: Erythrocyte distribution width (RBC) [Entitic vol] 46.7 fL 35.1-43.9 [facility] Work Phone: Erythrocyte distribution width (RBC) [Ratio] 13.7 % 11.6-14.6 [facility] Work Phone: Immature granulocytes/100 WBC (Bld) 0.400 % 0.0-0.9 [facility] Work Phone: [phone] Comment on above: IG% - Immature Granu locytes (promyelocytes, myelocytes and metamyelocytes) > 1% indicates that a LEFT SHIFT is Present. MCH (RBC) [Entitic mass] 30.3 pg 27.0-32.0 [facility] Work Phone: Neutrophils/100 WBC (Bld) 63.0 % 47-70 [facility] Work Phone: Nucleated RBC/100 WBC (Bld) [Ratio] 0 % 0-5 [facility] Work Phone: MCHC Auto (RBC) [Mass/Vol]on 04-12-2021 MCHC (RBC) [Mass/Vol] 32.5 g/dL 32-36 [facility] Work Phone: Platelets bldon 04-12-2021 Platelets (Bld) [#/Vol] 173 10*3/uL 150-450 [facility] Work Phone: Serum or plasma albumin gordy urement (mass/volume)on 04-12-2021 Albumin [Mass/Vol] 2.8 g/dL 3.2-5.0 [facility] Work Phone: [phone] Thin prep Papanicolaou smear with manual screeningon 04-12-2021 Thin prep Papanicolaou smear with manual screening 15 U/L 15-37 [facility] Work Phone: Absolute lymphocyte counton 04-07-2021 Lymphocytes Auto (Unsp spec) [#/Vol] 1.55 10*3/uL 0.83-4.51 [facility] Work Phone: Basophil percentageon 2020 Eosinophils/100 WBC (Bld) 0.7 % 0-5 [facility] Work Phone: Neutrophils (Bld) [#/Vol] 5.3 10*3/uL 2.0-7.7 [facility] Work Phone: WBC (Bld) [#/Vol] 8.1 10*3/uL 4.4-11.0 [facility] Work Phone: Blood erythrocytes count (nu mber/volume)on 04-07-2021 RBC (Bld) [#/Vol] 4.18 10*6/uL 4.6-6.2 [facility] Work Phone: Blood hemoglobin measurement (mass/volume)on 04-07-2021 Hemoglobin (Bld) [Mass/Vol] 12.9 g/dL 13.0-16.5 [facility] Work Phone: Blood lymphocytes/100 leukoc yteson 04-07-2021 Lymphocytes/100 WBC (Bld) 19.2 % 19-41 [facility] Work Phone: Blood monocytes/100 leukocyt eson 04-07-2021 Monocytes/100 WBC (Bld) 13.0 % 0-10 W [facility] Work Phone: Blood platelet mean volumeon 04-07-2021 Platelet mean volume (Bld) [Entitic vol] 10.9 fL 6.2-12.0 [facility] Work Phone: Determination of erythrocyte mean corpuscular volume (MCV)on 04-07-2021 MCV (RBC) [Entitic vol] 92.6 fL 80-94 W [facility] Work Phone: Hematocrit Auto (Bld) [Volum e fraction]on 04-07-2021 Hematocrit (Bld) [Volume fraction] 38.7 % 40-54 [facility] Work Phone: Laboratory - Hematology and Cell countson 04-07-2021 Basophils/100 WBC (Unsp spec) 0.6 % 0-1 [facility] Work Phone: Erythrocyte distribution width (RBC) [Entitic vol] 45.8 fL 35.1-43.9 [facility] Work Phone: Erythrocyte distribution width (RBC) [Ratio] 13.5 % 11.6-14.6 [facility] Work Phone: Immature granulocytes/100 WBC (Bld) 0.500 % 0.0-0.9 [facility] Work Phone: Comment on above: IG% - Immature Granu locytes (promyelocytes, myelocytes and metamyelocytes) > 1% indicates that a LEFT SHIFT is Present. MCH (RBC) [Entitic mass] 30.9 pg 27.0-32.0 [facility] Work Phone: Neutrophils/100 WBC (Bld) 66.0 % 47-70 [facility] Work Phone: Nucleated RBC/100 WBC (Bld) [Ratio] 0 % 0-5 [facility] Work Phone: MCHC Auto (RBC) [Mass/Vol]on 04-07-2021 MCHC (RBC) [Mass/Vol] 33.3 g/dL 32-36 [facility] Work Phone: Platelets bldon 04-07-2021 Platelets (Bld) [#/Vol] 210 10*3/uL 150-450 [facility] Work Phone: CULTURE BLOODon 03-25-2021 Microscopic examination of blood, culture CULTURE BLOOD --> Status: F No growth at 5 days. Normal [facility] Comment on above: Performed By: #### C /BLD ####[facility] [id number] [place] [address] CULTURE BLOOD (Two)on 2020 Microscopic examination of blood, culture CULTURE BLOOD (Two) --> Status: F No growth at 5 days. Normal [facility] Comment on above: Performed By: #### C /BLT ####[facility] [address] [id number] [place] [address] Basic Metabolic Panelon 03-02 Calcium [Mass/Vol] 8.8 mg/dL Normal 8.4-10.4 [facility] Comment on above: Performed By: #### H EMDF, BMP3 #### [facility] [address] [place] [address] Glucose [Mass/Vol] 103 mg/dL High 70-100 [facility] Comment on above: Performed By: #### H EMDF, BMP3 #### [facility] [address] [place] [address] Anion gap [Moles/Vol] 5 mmol/L Normal 3-13 [facility] Comment on above: Performed By: #### H EMDF, BMP3 #### [facility] [address] [place] [address] CO2 [Moles/Vol] 26 mmol/L Normal 22-30 [facility] Comment on above: Performed By: #### H EMDF, BMP3 #### [facility] [address] [place] [address] Creatinine [Mass/Vol] 0.49 mg/dL Low 0.52-1.25 [facility] Comment on above: Performed By: #### H EMDF, BMP3 #### [facility] [address] [place] [address] eGFR OTHER > 90.0 Normal >60 [facility] Comment on above: Result Comment: KDIG [...] #### H MAYKEL BMP3 #### [facility] [address] [place] [address] GFR/1.73 sq M.predicted among blacks MDRD (S/P/Bld) [Vol rate/Area] mL/min/{1.73_m2} Normal >60 [facility] Comment on above: Performed By: #### H MAYKEL BMP3 #### [facility] [address] [place] [address] Urea nitrogen [Mass/Vol] 30 mg/dL High 7-17 [facility] Comment on above: Performed By: #### H MAYKEL BMP3 #### [facility] [address] [place] [address] Chloride [Moles/Vol] 112 mmol/L High 98-107 [facility] Comment on above: Performed By: #### H MAYKEL BMP3 #### [facility] [address] [place] [address] Potassium [Moles/Vol] 4.1 mmol/L Normal 3.5-5.1 [facility] Comment on above: Performed By: #### H MAYKEL BMP3 #### [facility] [address] [place] [address] Sodium [Moles/Vol] 142 mmol/L Normal 135-145 [facility] Comment on above: Performed By: #### H MAYKEL BMP3 #### [facility] [address] [place] [address] Anion gap [Moles/Vol] 5 mmol/L 3 - 13 mmol/L [facility] Work Phone: Calcium [Mass/Vol] 8.8 mg/dL 8.4 - 10. 4 mg/dL [facility] Work Phone: Chloride [Moles/Vol] 112 mmol/L High 98 - 10 7 mmol/L [facility] Work Phone: CO2 [Moles/Vol] 26 mmol/L 22 - 30 mmol/L [facility] Work Phone: Creatinine [Mass/Vol] 0.49 mg/dL Low 0.52 - 1.25 mg/dL [facility] Work Phone: EGFR IF NonAfrican Malaysian >90.0 >60 mL/min [facility] Work Phone: Comment [...] [Moles/Vol] 142 mmol/L 135 - 145 mmol/L [employer] Work Phone: Urea nitrogen (BldV) [Mass/Vol] 30 mg/dL High 7 - 17 mg/dL [facility] Work Phone: Test Performed by [facility], [address] [place], [place] [id number] [place] [address] LAB [facility] Work Phone: CBC Auto Differentialon 11-2 Hematocrit (Bld) [Volume fraction] 35.0 % Low 40.0 - 52.0 % [facility] Work Phone: Hemoglobin.gastrointest inal spec 1 Ql (Stl) 11.7 g/dL Low 13.0 - 18.0 g/dL [facility] Work Phone: Interpretation and review of laboratory results Abnormal [facility] Work Phone: MCH (RBC) [Entitic mass] 31.0 pg 26.0 - 34.0 pg [employer] Work Phone: MCHC (RBC) [Mass/Vol] 33.4 % 32.0 - 36.0 % [facility] Work Phone: MCV (RBC) [Entitic vol] 92.7 fL 80.0 - 98.0 fL [employer] Work Phone: Platelet distribution width (Bld) [Ratio] 13.4 % 11.5 - 14.5 % [facility] Work Phone: Platelet mean volume (Bld) [Entitic vol] 8.6 fL 7.4 - 10.4 fL [employer] Work Phone: Platelets (Bld) [#/Vol] 236 10*3/uL 140 - 440 10*3/uL [employer] Work Phone: RBC (Bld) [#/Vol] 3.77 10*6/uL Low 4.40 - 5.9 0 10*6/uL [facility] Work Phone: WBC (Bld) [#/Vol] 12.8 10*3/uL High 3.6 - 10.7 10*3/uL [facility] Work Phone: Test Performed by [facility], [address] [place] [address] [facility] LAB [facility] Work Phone: Glucose,Bedsideon 03-24-2021 Glucose [Mass/Vol] 93 mg/dL Normal 70-100 [facility] Comment on above: Result Comment: Test performed by glucose meter. Results may be 10%-15% lower than serum/plasma values. (CLIA ID [id number]) Performed By: #### H ALCIRAF BMP3 #### [facility] [address] [place] [address] Glucose [Mass/Vol] 166 mg/dL High 70-100 [facility] Comment on above: Result Comment: Test performed by glucose meter. Results may be 10%-15% lower than serum/plasma values. (CLIA ID [id number]) Performed By: #### B GLU ####[facility] [address] [id number] [place] [address] Hemogram w/ Autodiffon 03-24 Erythrocyte distribution width (RBC) [Ratio] 13.4 % Normal 11.5-14.5 [facility] Comment on above: Performed By: #### H EMDF, BMP3 #### [facility] [address] [place] [address] Hematocrit (Bld) [Volume fraction] 35.0 % Low 40.0-52.0 [facility] Comment on above: Performed By: #### H EMDF, BMP3 #### [facility] [address] [place] [address] Hemoglobin (Bld) [Mass/Vol] 11.7 g/dL Low 13.0-18.0 [facility] Comment on above: Performed By: #### H EMDF, BMP3 #### [facility] [address] [place] [address] MCH (RBC) [Entitic mass] 31.0 pg Normal 26.0-34.0 [facility] Comment on above: Performed By: #### H EMDF, BMP3 #### [facility] [address] [place] [address] MCHC 33.4 % Normal 32.0-36.0 [facility] Comment on above: Performed By: #### H EMDF, BMP3 #### [facility] [address] [place] [address] MCV (RBC) [Entitic vol] 92.7 fL Normal 80.0-98.0 S [facility] Comment on above: Performed By: #### H EMDF, BMP3 #### [facility] [address] [place] [address] Platelet mean volume (Bld) [Entitic vol] 8.6 fL Normal 7.4-10.4 [facility] Comment on above: Performed By: #### H EMDF, BMP3 #### [facility] [address] [place] [address] Platelets (Bld) [#/Vol] 236 10*3/uL Normal 140-440 [facility] Comment on above: Performed By: #### H EMDF, BMP3 #### [facility] [address] [place] [address] RBC (Bld) [#/Vol] 3.77 10*6/uL Low 4.40-5.90 [facility] Comment on above: Performed By: #### H EMDF, BMP3 #### [facility] [address] [place] [address] WBC (Bld) [#/Vol] 12.8 10*3/uL High 3.6-10.7 [facility] Comment on above: Performed By: #### H EMDF, BMP3 #### [facility] [address] [place] [address] Manual Diffon 03-24-2021 Abs Lymph Cnt 1.7 10*3/uL Normal 1.1-4.5 [facility] Comment on above: Performed By: #### H EMDF, BMP3 #### [facility] [address] [place] [address] Abs Monocyte Cnt 0.8 10*3/uL Normal 0.2-1.1 [facility] Comment on above: Performed By: #### H EMDF, BMP3 #### [facility] [address] [place] [address] Abs Neutrophile Cnt 10.1 10*3/uL High 2.2-8.2 [facility] Comment on above: Performed By: #### H EMDF, BMP3 #### [facility] [address] [place] [address] Anisocytosis Slight Normal [facility] Comment on above: Performed By: #### H EMDF, BMP3 #### [facility] [address] [place] [address] Atypical Lymphocytes 2 % Abnormal <1 [facility] Comment on above: Performed By: #### H EMDF, BMP3 #### [facility] [address] [place] [address] [place] Cells Slight Normal [facility] Comment on above: Performed By: #### H EMDF, BMP3 #### [facility] [address] [place] [address] Lymphocytes 11 % Low 20-40 [facility] Comment on above: Performed By: #### H EMDF, BMP3 #### [facility] [address] [place] [address] Monocytes 6 % Normal 2-10 [facility] Comment on above: Performed By: #### H EMDF, BMP3 #### [facility] [address] [place] [address] Myelocytes 2 % Abnormal <1 [facility] Comment on above: Performed By: #### H EMDF, BMP3 #### [facility] [address] [place] [address] Ovalocytes Slight Normal [facility] Comment on above: Performed By: #### H EMDF, BMP3 #### [facility] [address] [place] [address] Poikilocytosis Slight Normal [facility] Comment on above: Performed By: #### H EMDF, BMP3 #### [facility] [address] [place] [address] Polychromasia Slight Normal [facility] Comment on above: Performed By: #### H EMDF, BMP3 #### [facility] [address] [place] [address] RBC Morphology ABNORMAL Normal [facility] Comment on above: Performed By: #### H EMDF, BMP3 #### [facility] [address] [place] [address] Seg Neutrophils 79 % Normal 40-80 [facility] Comment on above: Performed By: #### H EMDF, BMP3 #### [facility] [address] [place] [address] Tear Drop Forms Slight Normal [facility] Comment on above: Performed By: #### H EMDF, BMP3 #### [facility] [address] [place] [address] Abs Baso Cnt 0.0 10*3/uL Normal 0.0-0.2 [facility] Comment on above: Performed By: #### H EMDF, BMP3 #### [facility] [address] [place] [address] Abs Eosin Cnt 0.0 10*3/uL Normal 0.0-0.5 [facility] Comment on above: Performed By: #### H EMDF, BMP3 #### [facility] [address] [place] [address] Bands 0 % Normal 0-3 [facility] Comment on above: Performed By: #### H EMDF, BMP3 #### [facility] [address] [place] [address] Basophils 0 % Normal 0-2 [facility] Comment on above: Performed By: #### H EMDF, BMP3 #### [facility] [address] [place] [address] Cells counted 100 Normal [facility] Comment on above: Performed By: #### H EMDF, BMP3 #### [facility] [address] [place] [address] Eosinophils 0 % Low 1-6 [facility] Comment on above: Performed By: #### H EMDF, BMP3 #### [place] [address] [place] [address] Manual Differentialon 2020 Absolute Baso # 0.0 10*3/uL 0.0 - 0.2 10*3/uL [facility] Work Phone: Absolute Eos # 0.0 10*3/uL 0.0 - 0.5 10*3/uL [facility] Work Phone: Absolute Lymph # 1.7 10*3/uL 1.1 - 4.5 10*3/uL [facility] Work Phone: Absolute Jones # 0.8 10*3/uL 0.2 - 1.1 10*3/uL [...] Neutrophils 79 % 40 - 80 % [facility] Work Phone: Tear Drop Cells Slight [facility] Work Phone: TOTAL CELLS COUNTED 100 [facility] Work Phone: Test Performed by [facility], [address] [place] [address] [facility] [facility] Work Phone: POCT Glucoseon 03-24-2021 Glucose [Mass/Vol] 93 mg/dL 70 - 100 mg/dL [facility] Work Phone: Comment on above: Test performed by gl ucose meter. Results may be 10%-15% lower than serum/plasma values. (CLIA ID [id number]) Test Performed by [facility], [address] [place] [address] [facility] LAB [facility] Work Phone: Basic Metabolic Panelon 03-02 Calcium [Mass/Vol] 8.8 mg/dL Normal 8.4-10.4 [facility] Comment on above: Performed By: #### H EMDF, BMP3 #### [facility] [address] [place] [address] Glucose [Mass/Vol] 143 mg/dL High 70-100 [facility] Comment on above: Performed By: #### H EMDF, BMP3 #### [facility] [address] [place] [address] Anion gap [Moles/Vol] 8 mmol/L Normal 3-13 [facility] Comment on above: Performed By: #### H EMDF, BMP3 #### [facility] [address] [place] [address] CO2 [Moles/Vol] 24 mmol/L Normal 22-30 [facility] Comment on above: Performed By: #### H EMDF, BMP3 #### [facility] [address] [place] [address] Creatinine [Mass/Vol] 0.47 mg/dL Low 0.52-1.25 [facility] Comment on above: Performed By: #### H EMDF, BMP3 #### [facility] [address] [place] [address] eGFR OTHER > 90.0 Normal >60 [facility] Comment on above: Result Comment: KDIG [...] #### H MAYKEL BMP3 #### [facility] [address] [place] [address] GFR/1.73 sq M.predicted among blacks MDRD (S/P/Bld) [Vol rate/Area] mL/min/{1.73_m2} Normal >60 [facility] Comment on above: Performed By: #### H MAYKEL BMP3 #### [facility] [address] [place] [address] Urea nitrogen [Mass/Vol] 32 mg/dL High 7-17 [facility] Comment on above: Performed By: #### H MAYKEL BMP3 #### [facility] [address] [place] [address] Chloride [Moles/Vol] 110 mmol/L High 98-107 [facility] Comment on above: Performed By: #### H MAYKEL BMP3 #### [facility] [address] [place] [address] Potassium [Moles/Vol] 3.9 mmol/L Normal 3.5-5.1 [facility] Comment on above: Performed By: #### H MAYKEL BMP3 #### [facility] [address] [place] [address] Sodium [Moles/Vol] 142 mmol/L Normal 135-145 [facility] Comment on above: Performed By: #### H KORIN BRAR3 #### [facility] [address] [place] [address] Anion gap [Moles/Vol] 8 mmol/L 3 - 13 mmol/L [facility] Work Phone: Calcium [Mass/Vol] 8.8 mg/dL 8.4 - 10. 4 mg/dL [facility] Work Phone: Chloride [Moles/Vol] 110 mmol/L High 98 - 10 7 mmol/L [facility] Work Phone: CO2 [Moles/Vol] 24 mmol/L 22 - 30 mmol/L [facility] Work Phone: Creatinine [Mass/Vol] 0.47 mg/dL Low 0.52 - 1.25 mg/dL [facility] Work Phone: EGFR IF NonAfrican Malaysian >90.0 >60 mL/min [facility] Work Phone: Comment on above: KDIGO guidelines [...] MDRD (S/P/Bld) [Vol rate/Area] mL/min/{1.73_m2} >60 mL/min [facility] Work Phone: Glucose [Mass/Vol] 143 mg/dL High 70 - 100 mg/dL [facility] Work Phone: Interpretation and review of laboratory results Abnormal [facility] Work Phone: Potassium [Moles/Vol] 3.9 mmol/L 3.5 - 5.1 mmol/L [facility] Work Phone: Sodium [Moles/Vol] 142 mmol/L 135 - 145 mmol/L [facility] Work Phone: Urea nitrogen (BldV) [Mass/Vol] 32 mg/dL High 7 - 17 mg/dL [facility] Work Phone: [facility] by [facility], [address] [place] [address] LAB [facility] Work Phone: CBC Auto Differentialon 11-2 Absolute Baso # 0.0 10*3/uL 0.0 - 0.2 10*3/uL [facility] Work Phone: Absolute Neut # 13.5 10*3/uL High 1.8 - 7.0 10*3/uL [facility] Work Phone: Basophils/100 WBC (Bld) 0.3 % 0.0 - 2.0 % [facility] Work Phone: Eosinophils (Bld) [#/Vol] 0.0 10*3/uL 0.0 - 0.5 10*3/uL [facility] Work Phone: Eosinophils/100 WBC (Bld) 0.0 % Low 1.0 - 6.0 % [facility] Work Phone: Granulocytes/100 WBC (Bld) 89.5 % High 40.0 - 80.0 % [facility] Work Phone: Hematocrit (Bld) [Volume fraction] 36.5 % Low 40.0 - 52.0 % [facility] Work Phone: Hemoglobin.gastrointest inal spec 1 Ql (Stl) 12.4 g/dL Low 13.0 - 18.0 g/dL [facility] Work Phone: Interpretation and review of laboratory results Abnormal [facility] Work Phone: Lymphocytes (Bld) [#/Vol] 0.7 10*3/uL Low 1.0 - 4.3 10*3/uL [facility] Work Phone: Lymphocytes/100 WBC (Bld) 4.8 % Low 20.0 - 40.0 % [facility] Work Phone: MCH (RBC) [Entitic mass] 31.3 pg 26.0 - 34.0 pg [facility] Work Phone: MCHC (RBC) [Mass/Vol] 34.1 % 32.0 - 36.0 % [facility] Phone: MCV (RBC) [Entitic vol] 92.0 fL 80.0 - 98.0 fL [facility] Phone: Monocytes (Bld) [#/Vol] 0.8 10*3/uL 0.0 - 0.8 10*3/uL [facility] Work Phone: Monocytes/100 WBC (Bld) 5.4 % 2.0 - 10.0 % [facility] Phone: Platelet distribution width (Bld) [Ratio] 13.2 % 11.5 - 14.5 % [facility] Phone: Platelet mean volume (Bld) [Entitic vol] 9.0 fL 7.4 - 10.4 fL [facility] Work Phone: Platelets (Bld) [#/Vol] 211 10*3/uL 140 - 440 10*3/uL [facility] Work Phone: RBC (Bld) [#/Vol] 3.96 10*6/uL Low 4.40 - 5.9 0 10*6/uL [facility] Phone: WBC (Bld) [#/Vol] 15.1 10*3/uL High 3.6 - 10.7 10*3/uL [facility] Work Phone: Test Performed by [facility], [address] [place] [address] [facility] LAB [facility] Work Phone: Glucose,Bedsideon 03-23-2021 Glucose [Mass/Vol] 122 mg/dL High 70-100 [facility] Comment on above: Result Comment: Test performed by glucose meter. Results may be 10%-15% lower than serum/plasma values. (CLIA ID [id number]) Performed By: #### H EMDF, BMP3 #### [facility] [address] [place] [address] Glucose [Mass/Vol] 129 mg/dL High 70-100 [facility] Comment on above: Test performed by gl ucose meter. Results may be 10%-15% lower than serum/plasma values. (CLIA ID [id number]) Result Comment: Test performed by glucose meter. Results may be 10%-15% lower than serum/plasma values. (CLIA ID [id number]) Performed By: #### B GLU ####[facility] [address] [place] [address] Glucose [Mass/Vol] 136 mg/dL High 70-100 [facility] Comment on above: Result Comment: Test performed by glucose meter. Results may be 10%-15% lower than serum/plasma values. (CLIA ID [id number]) Performed By: #### B GLU #### [facility] [address] [place] [address] Hemogram w/ Autodiffon 03-23 Abs Baso Cnt 0.0 10*3/uL Normal 0.0-0.2 [facility] Comment on above: Performed By: #### H EMDF, BMP3 #### [facility] [address] [place] [address] Abs Neutrophile Cnt 13.5 10*3/uL High 1.8-7.0 [facility] Comment on above: Performed By: #### H EMDF, BMP3 #### [facility] [address] [place] [address] Basophils/100 WBC (Bld) 0.3 % Normal 0.0-2.0 S [facility] Comment on above: Performed By: #### H EMDF, BMP3 #### [facility] [address] [place] [address] Eosinophils (Bld) [#/Vol] 0.0 10*3/uL Normal 0.0-0.5 [facility] Comment on above: Performed By: #### H EMDF, BMP3 #### [facility] [address] [place] [address] Eosinophils/100 WBC (Bld) 0.0 % Low 1.0-6.0 [facility] Comment on above: Performed By: #### H EMDF, BMP3 #### [facility] [address] [place] [address] Erythrocyte distribution width (RBC) [Ratio] 13.2 % Normal 11.5-14.5 [facility] Comment on above: Performed By: #### H EMDF, BMP3 #### [facility] [address] [place] [address] Granulocytes/100 WBC (Bld) 89.5 % High 40.0-80.0 [facility] Comment on above: Performed By: #### H EMDF, BMP3 #### [facility] [employer] [facility] [address] [place] [address] Hematocrit (Bld) [Volume fraction] 36.5 % Low 40.0-52.0 [facility] Comment on above: Performed By: #### H EMDF, BMP3 #### [facility] [employer] [facility] [address] [place] [address] Hemoglobin (Bld) [Mass/Vol] 12.4 g/dL Low 13.0-18.0 [facility] Comment on above: Performed By: #### H EMDF, BMP3 #### [facility] [employer] [facility] [address] [place] [address] Lymphocytes (Bld) [#/Vol] 0.7 10*3/uL Low 1.0-4.3 [facility] Comment on above: Performed By: #### H EMDF, BMP3 #### [facility] [employer] [facility] [address] [place] [address] Lymphocytes/100 WBC (Bld) 4.8 % Low 20.0-40.0 [facility] Comment on above: Performed By: #### H EMDF, BMP3 #### [facility] [address] [place] [address] MCH (RBC) [Entitic mass] 31.3 pg Normal 26.0-34.0 [facility] Comment on above: Performed By: #### H EMDF, BMP3 #### [facility] [address] [place] [address] MCHC 34.1 % Normal 32.0-36.0 [facility] Comment on above: Performed By: #### H EMDF, BMP3 #### [facility] [address] [place] [address] MCV (RBC) [Entitic vol] 92.0 fL Normal 80.0-98.0 S [facility] Comment on above: Performed By: #### H EMDF, BMP3 #### [facility] [address] [place] [address] Monocytes (Bld) [#/Vol] 0.8 10*3/uL Normal 0.0-0.8 [facility] Comment on above: Performed By: #### H EMDF, BMP3 #### [facility] [address] [place] [address] Monocytes/100 WBC (Bld) 5.4 % Normal 2.0-10.0 S [facility] Comment on above: Performed By: #### H EMDF, BMP3 #### [facility] [address] [place] [address] Platelet mean volume (Bld) [Entitic vol] 9.0 fL Normal 7.4-10.4 [facility] Comment on above: Performed By: #### H EMDF, BMP3 #### [facility] [address] [place] [address] Platelets (Bld) [#/Vol] 211 10*3/uL Normal 140-440 [facility] Comment on above: Performed By: #### H EMDF, BMP3 #### [facility] [address] [place] [address] RBC (Bld) [#/Vol] 3.96 10*6/uL Low 4.40-5.90 [facility] Comment on above: Performed By: #### H MAYKEL BMP3 #### [facility] [address] [place] [address] WBC (Bld) [#/Vol] 15.1 10*3/uL High 3.6-10.7 [facility] Comment on above: Performed By: #### H MAYKEL BMP3 #### [facility] [address] [place] [address] No Panel Informationon 03-23 Interpretation and review of laboratory results Abnormal [facility] Work Phone: Test Performed by [facility], [facility] [address] LAB [facility] Work Phone: POCT Glucoseon 03-23-2021 Glucose [Mass/Vol] 166 mg/dL High 70 - 100 mg/dL [facility] Comment on above: Test performed by gl ucose meter. Results may be 10%-15% lower than serum/plasma values. (CLIA ID [id number]) Interpretation and review of laboratory results Abnormal [facility] Test Performed by [facility], [facility] [address] LAB [facility] Glucose [Mass/Vol] 122 mg/dL High 70 - 100 mg/dL [facility] Work Phone: Comment on above: Test performed by gl ucose meter. Results may be 10%-15% lower than serum/plasma values. (CLIA ID [id number]) Glucose [Mass/Vol] 136 mg/dL High 70 - 100 mg/dL [facility] Comment on above: Test performed by gl ucose meter. Results may be 10%-15% lower than serum/plasma values. (CLIA ID [id number]) Interpretation and review of laboratory results Abnormal [facility] Test Performed by [facility], [address] LAB [facility] CBC Auto Differentialon 03-02 Absolute Baso # [...] 13.3 10*3/uL High 3.6 - 10.7 10*3/uL [facility] Test Performed by [facility], [address] [place] [address] [facility] LAB [facility] Glucose,Bedsideon 03-22-2021 Glucose [Mass/Vol] 134 mg/dL High 70-100 [facility] Comment on above: Result Comment: Test performed by glucose meter. Results may be 10%-15% lower than serum/plasma values. (CLIA ID [id number]) Performed By: #### H EMDF, BMP3 #### [facility] [address] [place] [address] Glucose [Mass/Vol] 190 mg/dL High 70-100 [facility] Comment on above: Result Comment: Test performed by glucose meter. Results may be 10%-15% lower than serum/plasma values. (CLIA ID [id number]) Performed By: #### B GLU #### [facility] [address] [place] [address] Glucose [Mass/Vol] 200 mg/dL High 70-100 [facility] Comment on above: Result Comment: Test performed by glucose meter. Results may be 10%-15% lower than serum/plasma values. (CLIA ID [id number]) Performed By: #### B GLU #### [facility] [address] [place] [address] Glucose [Mass/Vol] 181 mg/dL High 70-100 [facility] Comment on above: Result Comment: Test performed by glucose meter. Results may be 10%-15% lower than serum/plasma values. (CLIA ID [id number]) Performed By: #### B GLU #### [facility] [address] [place] [address] Glucose [Mass/Vol] 186 mg/dL High 70-100 [facility] Comment on above: Result Comment: Test performed by glucose meter. Results may be 10%-15% lower than serum/plasma values. (CLIA ID [id number]) Performed By: #### B GLU #### [facility] [address] [place] [address] Hemoglobin A1Con 03-22-2021 Glucose [Mass/Vol] 108 mg/dL Normal [facility] Comment on above: Performed By: #### B GLU #### [facility] [address] [place] [address] HbA1c (Bld) [Mass fraction] 5.4 % Normal [facility] Comment on above: Result Comment: Norm al less than 5.7% Prediabetes 5.7% to 6.4% Diabetes 6.5% or higher --HgbA1C levels may not be accurate in patients who have renal disease, received recent blood transfusions, are anemic, or who have dyshemoglobinemia. Performed By: #### B GLU #### [facility] [address] [place] [address] HbA1c (Bld) [Mass fraction] 5.4 % [facility] Comment on above: Normal less than 5.7 % Prediabetes 5.7% to 6.4% Diabetes 6.5% or higher --HgbA1C levels may not be accurate in patients who have renal disease, received recent blood transfusions, are anemic, or who have dyshemoglobinemia. Magnesium [Mass/Vol] 108 mg/dL [facility] Test Performed by [facility], [address] [place], [place] [address] [facility] LAB [facility] Hemogram w/ Autodiffon 03-22 Abs Baso Cnt 0.0 10*3/uL Normal 0.0-0.2 [facility] Comment on above: Performed By: #### B GLU #### [facility] [address] [place] [address] Abs Neutrophile Cnt 12.3 10*3/uL High 1.8-7.0 [facility] Comment on above: Performed By: #### B GLU #### [facility] [address] [place] [address] Basophils/100 WBC (Bld) 0.2 % Normal 0.0-2.0 [facility] Comment on above: Performed By: #### B GLU #### [facility] [address] [place] [address] Eosinophils (Bld) [#/Vol] 0.0 10*3/uL Normal 0.0-0.5 [facility] Comment on above: Performed By: #### B GLU #### [facility] [address] [place] [address] Eosinophils/100 WBC (Bld) 0.0 % Low 1.0-6.0 [facility] Comment on above: Performed By: #### B GLU #### [facility] [address] [place] [address] Erythrocyte distribution width (RBC) [Ratio] 12.8 % Normal 11.5-14.5 [facility] Comment on above: Performed By: #### B GLU #### [facility] [address] [place] [address] Granulocytes/100 WBC (Bld) 92.7 % High 40.0-80.0 [facility] Comment on above: Performed By: #### B GLU #### [facility] [address] [place] [address] Hematocrit (Bld) [Volume fraction] 35.9 % Low 40.0-52.0 [facility] Comment on above: Performed By: #### B GLU #### [facility] [address] [place] [address] Hemoglobin (Bld) [Mass/Vol] 12.4 g/dL Low 13.0-18.0 [facility] Comment on above: Performed By: #### B GLU #### [facility] [address] [place] [address] Lymphocytes (Bld) [#/Vol] 0.5 10*3/uL Low 1.0-4.3 [facility] Comment on above: Performed By: #### B GLU #### [facility] [address] [place] [address] Lymphocytes/100 WBC (Bld) 3.6 % Low 20.0-40.0 [facility] Comment on above: Performed By: #### B GLU #### [facility] [address] [place] [address] MCH (RBC) [Entitic mass] 31.6 pg Normal 26.0-34.0 [facility] Comment on above: Performed By: #### B GLU #### [facility] [address] [place] [address] MCHC 34.6 % Normal 32.0-36.0 [facility] Comment on above: Performed By: #### B GLU #### [facility] [address] [place] [address] MCV (RBC) [Entitic vol] 91.2 fL Normal 80.0-98.0 S [facility] Comment on above: Performed By: #### B GLU #### [facility] [address] [place] [address] Monocytes (Bld) [#/Vol] 0.5 10*3/uL Normal 0.0-0.8 [facility] Comment on above: Performed By: #### B GLU #### [facility] [address] [place] [address] Monocytes/100 WBC (Bld) 3.5 % Normal 2.0-10.0 S [facility] Comment on above: Performed By: #### B GLU #### [facility] [address] [place] [address] Platelet mean volume (Bld) [Entitic vol] 9.5 fL Normal 7.4-10.4 [facility] Comment on above: Performed By: #### B GLU #### [facility] [address] [place] [address] Platelets (Bld) [#/Vol] 158 10*3/uL Normal 140-440 [facility] Comment on above: Performed By: #### B GLU #### [facility] [address] [place] [address] RBC (Bld) [#/Vol] 3.93 10*6/uL Low 4.40-5.90 [facility] Comment on above: Performed By: #### B GLU #### [facility] [address] [place] [address] WBC (Bld) [#/Vol] 13.3 10*3/uL High 3.6-10.7 [facility] Comment on above: Performed By: #### B GLU #### [facility] [address] [place] [address] MRSA by PCRon 03-22-2021 Staph Aureus Sc No S. aureus detected. Negative nasal MRSA PCR has a high negative predictive value for MRSA pneumonia. Consider stopping vancomycin if no other clinical indication. Contact Antimicrobial Stewardship for further recommendations. The analytical performance characteristics of this assay have been determined by [employer] in accordance with CLIA regulations. The modifications have not been cleared or approved by the U. S. Food and Drug Administration; however, the FDA has determined that such clearance or approval is not necessary. [facility] Test Performed by [employer], [address] [place], [place] [address] [place] [address] LAB [facility] POCT GlucoseOrdered By: Same er Morgan on 03-22-2021 Glucose [Mass/Vol] 134 mg/dL High 70 - 100 mg/dL [facility] Work Phone: Comment on above: Test performed by gl ucose meter. Results may be 10%-15% lower than serum/plasma values. (CLIA ID [id number]) Interpretation and review of laboratory results Abnormal [facility] Work Phone: [facility] Work Phone: POCT Glucoseon 03-22-2021 Test Performed by [facility] [employer] [facility], [address] LAB Glucose [Mass/Vol] 190 mg/dL High 70 - 100 mg/dL [facility] Comment on above: Test performed by gl ucose meter. Results may be 10%-15% lower than serum/plasma values. (CLIA ID [id number]) Interpretation and review of laboratory results Abnormal [facility] Test Performed by [employer], [address] LAB [facility] Glucose [Mass/Vol] 200 mg/dL High 70 - 100 mg/dL [facility] Comment on above: Test performed by gl ucose meter. Results may be 10%-15% lower than serum/plasma values. (CLIA ID [id number]) Interpretation and review of laboratory results Abnormal [facility] Test Performed by [facility] [employer], [address] LAB [facility] Glucose [Mass/Vol] 181 mg/dL High 70 - 100 mg/dL [facility] Comment on above: Test performed by gl ucose meter. Results may be 10%-15% lower than serum/plasma values. (CLIA ID [id number]) Interpretation and review of laboratory results Abnormal [facility] Test Performed by [facility] [employer] [facility], [address] [place], [place] [id number] [place] [address] LAB [facility] Glucose [Mass/Vol] 186 mg/dL High 70 - 100 mg/dL [facility] Comment on above: Test performed by gl ucose meter. Results may be 10%-15% lower than serum/plasma values. (CLIA ID [id number]) Interpretation and review of laboratory results Abnormal [facility] Test Performed by [facility] [employer] [facility], [address] [place], [place] [address] [place] [address] LAB [facility] Procalcitoninon 03-22-2021 Procalcitonin 0.09 ng/mL Normal 0.00-0.09 [facility] [employer] Comment on above: Performed By: #### H [facility] #### [facility] [address] [place] [address] Interpretation See Below [facility] Comment on above: PCT <0.50 = Low risk of severe sepsis and/or septic shock. PCT >2.00 = High risk of severe sepsis and/or septic shock. Procalcitonin 0.09 ng/mL 0.00 - 0.09 ng/mL [facility] Test Performed by [facility] [employer] [facility], [address] [place] [place] [id number] [place] [address] LAB [facility] Staph Aureus Complete Nasalo n 03-22-2021 Staph Aureus Complete Nasal Staph Screen --> Status: F No S. aureus detected. Negative nasal MRSA PCR has a high negative predictive value for MRSA pneumonia. Consider stopping vancomycin if no other clinical indication. Contact Antimicrobial Stewardship for further recommendations. The analytical performance characteristics of this assay have been determined by [employer] in accordance with CLIA regulations. The modifications [...] of this assay have been determined by [facility] in accordance with CLIA regulations. The modifications have not been cleared or approved by the U. S. Food and Drug Administration; however, the FDA has determined that such clearance or approval is not necessary. Normal [facility] Comment on above: Performed By: #### S APCR ####[facility] [place] [address] Vancomycin Troughon 03-22-20 21 Vancomycin Trough 8.1 ug/mL Low 15.0-20.0 [facility] Comment on above: Result Comment: . Performed By: #### B GLU #### [facility] [address] [place] [address] Vancomycin, Troughon 021 Interpretation and review of laboratory results Abnormal [facility] Vancomycin Tr 8.1 ug/mL Low 15.0 - 20.0 ug/mL [facility] Comment on above: . Test Performed by [facility], [address] [place] [address] [facility] LAB [facility] Basic Metabolic Panelon 03-02 Anion gap [Moles/Vol] 7 mmol/L Normal 3-13 [facility] Comment on above: Performed By: #### H MAYKEL BMP3 #### [facility] [address] [place] [address] Calcium [Mass/Vol] 8.1 mg/dL Low 8.4-10.4 [facility] Comment on above: Performed By: #### H MAYKEL BMP3 #### [facility] [address] [place] [address] CO2 [Moles/Vol] 26 mmol/L Normal 22-30 [facility] Comment on above: Performed By: #### H MAYKEL BMP3 #### [facility] [address] [place] [address] Glucose [Mass/Vol] 156 mg/dL High 70-100 [facility] Comment on above: Performed By: #### H MAYKEL BMP3 #### [facility] [address] [place] [address] Urea nitrogen [Mass/Vol] 19 mg/dL High 7-17 [facility] Comment on above: Performed By: #### H MAYKEL BMP3 #### [facility] [address] [place] [address] Creatinine [Mass/Vol] 0.53 mg/dL Normal 0.52-1.25 [facility] Comment on above: Performed By: #### H MAYKEL BMP3 #### [facility] [address] [place] [address] eGFR OTHER > 90.0 Normal >60 [facility] Comment on above: Result Comment: KDIG [...] #### H MAYKEL BMP3 #### [facility] [address] [place] [address] GFR/1.73 sq M.predicted among blacks MDRD (S/P/Bld) [Vol rate/Area] mL/min/{1.73_m2} Normal >60 [facility] Comment on above: Performed By: #### H MAYKEL BMP3 #### [facility] [address] [place] [address] Chloride [Moles/Vol] 103 mmol/L Normal 98-107 [facility] Comment on above: Performed By: #### H MAYKEL BMP3 #### [facility] [address] [place] [address] Potassium [Moles/Vol] 3.4 mmol/L Low 3.5-5.1 [facility] Comment on above: Performed By: #### H EMDF, BMP3 #### [facility] [address] [place] [address] Sodium [Moles/Vol] 136 mmol/L Normal 135-145 [facility] [employer] [facility] Comment on above: Performed By: #### H MAYKEL, BMP3 #### [facility] [address] [place] [address] Basic Metabolic Panel w/ Ref marciano to MGon 03-21-2021 Anion gap [Moles/Vol] 7 mmol/L 3 - 13 mmol/L [facility] Work Phone: Calcium [Mass/Vol] 8.1 mg/dL Low 8.4 - 10. 4 mg/dL [facility] Work Phone: Chloride [Moles/Vol] 103 mmol/L 98 - 10 7 mmol/L [facility] Work Phone: CO2 [Moles/Vol] 26 mmol/L 22 - 30 mmol/L [facility] Work Phone: Creatinine [Mass/Vol] 0.53 mg/dL 0.52 - 1.25 mg/dL [facility] Work Phone: EGFR IF NonAfrican Malaysian >90.0 >60 mL/min [facility] Work Phone: Comment on above: KDIGO guidelines [...] MDRD (S/P/Bld) [Vol rate/Area] mL/min/{1.73_m2} >60 mL/min [employer] Work Phone: Glucose [Mass/Vol] 156 mg/dL High 70 - 100 mg/dL [employer] Work Phone: Interpretation and review of laboratory results Abnormal [employer] Work Phone: Potassium [Moles/Vol] 3.4 mmol/L Low 3.5 - 5.1 mmol/L [facility] Work Phone: Sodium [Moles/Vol] 136 mmol/L 135 - 145 mmol/L [employer] Work Phone: Urea nitrogen (BldV) [Mass/Vol] 19 mg/dL High 7 - 17 mg/dL [facility] Work Phone: Test [facility] by [facility], [address] [place] [id number] [place] [address] LAB [facility] Work Phone: CBCon 03-21-2021 Hematocrit (Bld) [Volume fraction] 35.4 % Low 40.0 - 52.0 % [facility] Work Phone: Hemoglobin.gastrointest inal spec 1 Ql (Stl) 11.9 g/dL Low 13.0 - 18.0 g/dL [facility] Work Phone: Interpretation and review of laboratory results Abnormal [facility] Work Phone: MCH (RBC) [Entitic mass] 30.5 pg 26.0 - 34.0 pg [facility] Work Phone: MCHC (RBC) [Mass/Vol] 33.7 % 32.0 - 36.0 % [employer] Work Phone: MCV (RBC) [Entitic vol] 90.6 fL 80.0 - 98.0 fL [facility] Work Phone: Platelet distribution width (Bld) [Ratio] 13.1 % 11.5 - 14.5 % [employer] Work Phone: Platelet mean volume (Bld) [Entitic vol] 9.1 fL 7.4 - 10.4 fL [employer] Work Phone: Platelets (Bld) [#/Vol] 136 10*3/uL Low 140 - 440 10*3/uL [facility] Work Phone: RBC (Bld) [#/Vol] 3.91 10*6/uL Low 4.40 - 5.9 0 10*6/uL [facility] Work Phone: WBC (Bld) [#/Vol] 7.1 10*3/uL 3.6 - 10.7 10*3/uL [facility] Work Phone: Test Performed by [facility] [employer] [facility], [address] [place], [place] [id number] [place] [address] LAB [facility] Work Phone: Glucose,Bedsideon 03-21-2021 Glucose [Mass/Vol] 131 mg/dL High 70-100 [facility] Comment on above: Result Comment: Test performed by glucose meter. Results may be 10%-15% lower than serum/plasma values. (CLIA ID [id number]) Performed By: #### B GLU #### [facility] [employer] [address] [place] [address] Glucose [Mass/Vol] 230 mg/dL High 70-100 [facility] Comment on above: Result Comment: Test performed by glucose meter. Results may be 10%-15% lower than serum/plasma values. (CLIA ID [id number]) Performed By: #### B GLU #### [facility] [employer] [address] [place] [address] Hemogramon 03-21-2021 Erythrocyte distribution width (RBC) [Ratio] 13.1 % Normal 11.5-14.5 [facility] Comment on above: Performed By: #### H MAYKEL BMP3 #### [facility] [address] [place] [address] Hematocrit (Bld) [Volume fraction] 35.4 % Low 40.0-52.0 [facility] Comment on above: Performed By: #### H MAYKEL BMP3 #### [facility] [employer] [address] [place] [address] Hemoglobin (Bld) [Mass/Vol] 11.9 g/dL Low 13.0-18.0 [facility] Comment on above: Performed By: #### H EMDF, BMP3 #### [facility] [address] [place] [address] MCH (RBC) [Entitic mass] 30.5 pg Normal 26.0-34.0 [facility] Comment on above: Performed By: #### H EMDF, BMP3 #### [facility] [address] [place] [address] MCHC 33.7 % Normal 32.0-36.0 [facility] Comment on above: Performed By: #### H EMDF, BMP3 #### [facility] [address] [place] [address] MCV (RBC) [Entitic vol] 90.6 fL Normal 80.0-98.0 S [facility] Comment on above: Performed By: #### H EMDF, BMP3 #### [facility] [address] [place] [address] Platelet mean volume (Bld) [Entitic vol] 9.1 fL Normal 7.4-10.4 [facility] Comment on above: Performed By: #### H EMDF, BMP3 #### [facility] [address] [place] [address] Platelets (Bld) [#/Vol] 136 10*3/uL Low 140-440 [facility] Comment on above: Performed By: #### H EMDF, BMP3 #### [facility] [address] [place] [address] RBC (Bld) [#/Vol] 3.91 10*6/uL Low 4.40-5.90 [facility] Comment on above: Performed By: #### H EMDF, BMP3 #### [facility] [address] [place] [address] WBC (Bld) [#/Vol] 7.1 10*3/uL Normal 3.6-10.7 [facility] Comment on above: Performed By: #### H EMDF, BMP3 #### [facility] [address] [place] [address] Magnesiumon 03-21-2021 Magnesium [Mass/Vol] 2.2 mg/dL Normal 1.6-2.3 [facility] Comment on above: Performed By: #### H KORIN BRAR3 #### [facility] [address] [place] [address] Magnesium [Mass/Vol] 2.2 mg/dL 1.6 - 2 .3 mg/dL [facility] Work Phone: Test Performed by [facility], [address] [place], [place] [id number] [place] [address] LAB [facility] Work Phone: POCT Glucoseon 03-21-2021 Glucose [Mass/Vol] 131 mg/dL High 70 - 100 mg/dL [facility] Comment on above: Test performed by gl ucose meter. Results may be 10%-15% lower than serum/plasma values. (CLIA ID [id number]) Interpretation and review of laboratory results Abnormal [facility] Test Performed by [facility], [address] [place], [place] [id number] [place] [address] LAB [facility] Glucose [Mass/Vol] 230 mg/dL High 70 - 100 mg/dL [facility] Comment on above: Test performed by gl ucose meter. Results may be 10%-15% lower than serum/plasma values. (CLIA ID [id number]) Interpretation and review of laboratory results Abnormal [facility] Test Performed by [facility], [address] LAB [facility] Procalcitoninon 03-21-2021 Interpretation See Below Normal [facility] Comment on above: Result Comment: PCT <0.50 = Low risk of severe sepsis and/or septic shock. PCT >2.00 = High risk of severe sepsis and/or septic shock. Performed By: #### H KORIN BRAR3 #### [facility] [address] [place] [address] Basic Metabolic Panelon 03-02 Calcium [Mass/Vol] 8.4 mg/dL Normal 8.4-10.4 [facility] Comment on above: Performed By: #### H EMDF, BMP3 #### [facility] [address] [place] [address] Anion gap [Moles/Vol] 6 mmol/L Normal 3-13 [facility] Comment on above: Performed By: #### H EMDF, BMP3 #### [facility] [address] [place] [address] CO2 [Moles/Vol] 27 mmol/L Normal 22-30 [facility] Comment on above: Performed By: #### H EMDF, BMP3 #### [facility] [address] [place] [address] Glucose [Mass/Vol] 106 mg/dL High 70-100 [facility] Comment on above: Performed By: #### H EMDF, BMP3 #### [facility] [address] [place] [address] Urea nitrogen [Mass/Vol] 14 mg/dL Normal 7-17 [facility] Comment on above: Performed By: #### H EMDF, BMP3 #### [facility] [address] [place] [address] Creatinine [Mass/Vol] 0.51 mg/dL Low 0.52-1.25 [facility] Comment on above: Performed By: #### H EMDF, BMP3 #### [facility] [address] [place] [address] eGFR OTHER > 90.0 Normal >60 [facility] Comment on above: Result Comment: KDIG [...] #### H MAYKEL BMP3 #### [facility] [address] [place] [address] GFR/1.73 sq M.predicted among blacks MDRD (S/P/Bld) [Vol rate/Area] mL/min/{1.73_m2} Normal >60 [facility] Comment on above: Performed By: #### H MAYKEL BMP3 #### [facility] [address] [place] [address] Chloride [Moles/Vol] 104 mmol/L Normal 98-107 [facility] Comment on above: Performed By: #### H MAYKEL BMP3 #### [facility] [address] [place] [address] Potassium [Moles/Vol] 3.9 mmol/L Normal 3.5-5.1 [facility] Comment on above: Performed By: #### H MAYKEL BMP3 #### [facility] [address] [place] [address] Sodium [Moles/Vol] 137 mmol/L Normal 135-145 [facility] Comment on above: Performed By: #### H MAYKEL BMP3 #### [facility] [address] [place] [address] Anion gap [Moles/Vol] 6 mmol/L 3 - 13 mmol/L [facility] Work Phone: Calcium [Mass/Vol] 8.4 mg/dL 8.4 - 10. 4 mg/dL [facility] Work Phone: Chloride [Moles/Vol] 104 mmol/L 98 - 10 7 mmol/L [facility] Work Phone: CO2 [Moles/Vol] 27 mmol/L 22 - 30 mmol/L [facility] Work Phone: Creatinine [Mass/Vol] 0.51 mg/dL Low 0.52 - 1.25 mg/dL [facility] Work Phone: EGFR IF NonAfrican Malaysian >90.0 >60 mL/min [facility] Work Phone: Comment on above: KDIGO guidelines [...] MDRD (S/P/Bld) [Vol rate/Area] mL/min/{1.73_m2} >60 mL/min [facility] Work Phone: Glucose [Mass/Vol] 106 mg/dL High 70 - 100 mg/dL [facility] Work Phone: Interpretation and review of laboratory results Abnormal [facility] Work Phone: Potassium [Moles/Vol] 3.9 mmol/L 3.5 - 5.1 mmol/L [facility] Work Phone: Sodium [Moles/Vol] 137 mmol/L 135 - 145 mmol/L [facility] Work Phone: Urea nitrogen (BldV) [Mass/Vol] 14 mg/dL 7 - 17 mg/dL [facility] Work Phone: Test Performed by [facility], [address] [place], [place], [place] [address] [facility] LAB [facility] Work Phone: C-Reactive Proteinon 11-20-2 021 CRP [Mass/Vol] 228.1 mg/L High 0.0-9.9 [facility] Comment on above: Result Comment: . Performed By: #### H MAYKEL BMP3 #### [facility] [employer] [facility] [address] [place] [address] CRP [Mass/Vol] 228.1 mg/L High 0.0 - 9.9 mg/L [facility] Work Phone: Comment on above: . Interpretation and review of laboratory results Abnormal [employer] Work Phone: Test Performed by [facility], [address] [place], [place], [place] [address] [facility] LAB [facility] Work Phone: COVID and Resp PCR [...] PCR. _ Expected Result: Not Detected The [employer] Upper Respiratory Pathogens PCR Panel can detect the following targets: SARS-CoV-2, Adenovirus, Coronavirus 229E, Coronavirus HKU1, Coronavirus NL63, Coronavirus OC43, Human Metapneumovirus, Human Rhinovirus/Enteroviru s, Influenza A, Influenza B, Parainfluenza Virus 1, Parainfluenza Virus 2, Parainfluenza Virus 3, Parainfluenza Virus 4, Respiratory Syncytial Virus, Bordetella pertussis, Bordetella parapertussis, Chlamydia pneumoniae, Mycoplasma pneumoniae. Method: Real-time PCR. 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1955 Requested By: BRADY DESAI Order Number: [id number] Reading MD: Fei Menjivar Measurements Intervals [place] Rate: 102 P: 71 [place]: 172 QRS: -30 QRSD: 156 T: 85 QT: 412 QTc: 537 Interpretive Statements SINUS TACHYCARDIA LEFT BUNDLE BRANCH BLOCK Electronically Signed On 03-20-2021 22:47:41 EST by Fei Menjivar [facility], Fei Cotto MD - 03/20/2021 [facility] Test Date: 2021-03-19 Pat Name: KATHYA HOOPER Department: 1 Room: 465 Gender: M 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1955 Requested By: BRADY DESAI Order Number: [id number] Reading MD: Fei Menjivar Measurements Intervals [place] Rate: 102 P: 71 [place]: 172 QRS: -30 QRSD: 156 T: 85 QT: 412 QTc: 537 Interpretive Statements SINUS TACHYCARDIA LEFT BUNDLE BRANCH BLOCK Electronically Signed On 03-20-2021 22:47:41 EST by Fei Menjivar [facility] Work Phone: EKG 12 Lead - Chest PainOrde red By: Fei Menjivar on 03-20-2021 [facility] Work Phone: Lactic Acidon 03-20-2021 Lactate [Moles/Vol] 0.7 mmol/L Normal 0.7-2.0 [facility] Comment on above: Performed By: #### H EMD, BMP3 #### [facility] [address] [place] [address] Lactic Acid, Plasmaon 2020 Lactate [Moles/Vol] 0.7 mmol/L 0.7 - 2. 0 mmol/L [facility] Work Phone: Test Performed by [facility], [address], [place], [place] [address] [facility] LAB [facility] Work Phone: PROCALCITONINon 03-20-2021 Interpretation See Below [facility] Work Phone: Comment on above: PCT <0.50 = Low risk of severe sepsis and/or septic shock. PCT >2.00 = High risk of severe sepsis and/or septic shock. Interpretation and review of laboratory results Abnormal [facility] Work Phone: Test Performed by [facility], [address] [place] [address] [facility] LAB [facility] Work Phone: Procalcitoninon 03-20-2021 Procalcitonin 0.14 ng/mL High 0.00-0.09 [facility] Work Phone: Comment on above: Performed By: #### H EMDF, BMP3 #### [facility] [address] [place] [address] Interpretation See Below Normal [facility] Comment on above: Result Comment: PCT <0.50 = Low risk of severe sepsis and/or septic shock. PCT >2.00 = High risk of severe sepsis and/or septic shock. Performed By: #### H EMDF, BMP3 #### [facility] [address] [place] [address] Troponinon 03-20-2021 Interpretation and review of laboratory results Abnormal [facility] Work Phone: Troponin I.cardiac [Mass/Vol] 0.037 ng/mL High 0.000 - 0.034 ng/mL [facility] Work Phone: Comment on above: . Test Performed by [employer], [address] [place], [place] [address] [facility] LAB [facility] Work Phone: Troponin Ion 03-20-2021 Troponin I.cardiac [Mass/Vol] 0.037 ng/mL High 0.000-0.034 [facility] Comment on above: Result Comment: . Performed By: #### H EMDF, BMP3 #### [employer] [facility] [address] [place] [address] Arterial Blood Gas Respirato yasmine 03-19-2021 Base Excess 1.2 mmol/L Normal -3.0-3.0 [facility] Comment on above: Performed By: #### B GLU #### [facility] [address] [place] [address] CO2 [Moles/Vol] 25.6 mmol/L Normal 23.0-27.0 [facility] Comment on above: Performed By: #### B GLU #### [facility] [address] [place] [address] FIO2 5 Normal [facility] Comment on above: Result Comment: Perf ormed by CLIA ID: [id number] [facility] [place] Performed By: #### B GLU #### [facility] [address] [place] [address] HCO3 (Bld) [Moles/Vol] 24.6 mmol/L Normal 21.0-25.0 S [facility] Comment on above: Performed By: #### B GLU #### [facility] [address] [place] [address] Oxygen (Bld) [Partial pressure] 56.7 mm[Hg] Low 80.0-100.0 [facility] Comment on above: Performed By: #### B GLU #### [facility] [address] [place] [address] Oxygen saturation in Blood 91.0 % Low 95.0-100.0 [facility] Comment on above: Performed By: #### B GLU #### [facility] [address] [place] [address] pCO2 33.9 mm[Hg] Low 35.0-45.0 [facility] Comment on above: Performed By: #### B GLU #### [facility] [address] [place] [address] pH 7.468 High 7.350-7.450 [facility] Comment on above: Performed By: #### B GLU #### [facility] [address] [place] [address] Basic Metabolic Panelon 11-1 Anion gap [Moles/Vol] 9 mmol/L Normal 3-13 [facility] Comment on above: Performed By: #### B MP3, TROPN ####[place] [address] [place] [address] Calcium [Mass/Vol] 8.5 mg/dL Normal 8.4-10.4 [facility] Comment on above: Performed By: #### B MP3, TROPN ####[place] [address] [place] [address] CO2 [Moles/Vol] 26 mmol/L Normal 22-30 [facility] Comment on above: Performed By: #### B MP3, TROPN ####[place] [address] [place] [address] Creatinine [Mass/Vol] 0.48 mg/dL Low 0.52-1.25 [facility] Comment on above: Performed By: #### B MP3, TROPN ####[address] [facility] [place] [address] eGFR OTHER > 90.0 Normal >60 [facility] Comment on above: Result Comment: KDIG [...] secretion. Performed By: #### B MP3, TROPN ####[place] [address] [place] [address] GFR/1.73 sq M.predicted among blacks MDRD (S/P/Bld) [Vol rate/Area] mL/min/{1.73_m2} Normal >60 [facility] Comment on above: Performed By: #### B MP3, TROPN ####[address] [place] [address] Glucose [Mass/Vol] 132 mg/dL High 70-100 [facility] Comment on above: Performed By: #### B MP3, TROPN ####[facility] [address] [place] [address] Urea nitrogen [Mass/Vol] 16 mg/dL Normal 7-17 [facility] Comment on above: Performed By: #### B MP3, TROPN ####[facility] [address] [place] [address] Chloride [Moles/Vol] 102 mmol/L Normal 98-107 [facility] Comment on above: Performed By: #### B MP3, TROPN ####[facility] [place] [address] Potassium [Moles/Vol] 4.1 mmol/L Normal 3.5-5.1 [facility] Comment on above: Performed By: #### B MP3, TROPN ####[facility] [place] [address] Sodium [Moles/Vol] 137 mmol/L Normal 135-145 [facility] Comment on above: Performed By: #### B MP3, TROPN ####[facility] [place] [address] Anion gap [Moles/Vol] 9 mmol/L 3 - 13 mmol/L [facility] Calcium [Mass/Vol] 8.5 mg/dL 8.4 - 10. 4 mg/dL [facility] Chloride [Moles/Vol] 102 mmol/L 98 - 10 7 mmol/L [facility] CO2 [Moles/Vol] 26 mmol/L 22 - 30 mmol/L [facility] Creatinine [Mass/Vol] 0.48 mg/dL Low 0.52 - 1.25 mg/dL [facility] EGFR IF NonAfrican Malaysian >90.0 >60 mL/min [facility] Comment on above: KDIGO guidelines pro [...] - 17 mg/dL [facility] Test Performed by [facility] [employer] [facility], [address] [place] [id number] [place] [address] LAB [facility] CBC Auto Differentialon 03-01 Absolute Baso # [...] Real-time, RT-PCR This assay was developed by [employer] and distributed under an Emergency Use Authorization (EUA) granted by the FDA for the qualitative detection of nucleic acids from SARS-CoV-2, Influenza A, Influenza B, and Respiratory Syncytial Virus. Provider and patient fact sheets can be found at https://www.fda.gov/m edia/182763/download and https://www.fda.gov/m edia/095095/download. Abnormal [facility] SARS-CoV-2 (COVID-19) RNA SHIRLEY+probe Ql (Unsp spec) Not detected [facility] Test Performed by [facility], [address] LAB [facility] CR Chest Portableon 03-19-20 21 CR Chest Portable Patient Name: KATHYA HOOPER Diagnostic Radiology ACCESSION EXAM DATE/TIME PROCEDURE ORDERING PROVIDER [id number] 03/19/2021 17:10 EST CR Chest Portable [id number] -BRADY DESAI CPT code 31184 Reason For Exam (CR Chest Portable) hypoxia [...] and Time: 03/19/2021 5:22 Normal [facility] ED Provider Noteon ED Provider Note Emergency Department Encounter [facility] ED Patient: Kathya Hooper : 1955 Date of Evaluation: 03/19/2021 ED Provider: Brady Desai, DO Chief Complaint Chief Complaint Patient presents with ? Shortness of Breath [place] I wore appropriate PPE for the entirety of this encounter. Does this patient come from an ECF, SNF, Rehab, Halfway or other Congregate setting: yes (If yes [...] otherwise acutely negative except as in the [place]. Past History Past Medical History: Diagnosis Date [...] and Family: Not on file ? Attends Anab[employer]ist Services: Not on file ? Active Member [...] TABLET T (more content not included)... Normal [facility] Hemogram w/ Autodiffon 03-19 Abs Baso Cnt 0.1 10*3/uL Normal 0.0-0.2 [facility] Comment on above: Performed By: #### B GLU #### [facility] [address] [place] [address] Abs Neutrophile Cnt 7.2 10*3/uL High 1.8-7.0 [facility] Comment on above: Performed By: #### B GLU #### [facility] [address] [place] [address] Basophils/100 WBC (Bld) 0.6 % Normal 0.0-2.0 [facility] Comment on above: Performed By: #### B GLU #### [facility] [address] [place] [address] Eosinophils (Bld) [#/Vol] 0.0 10*3/uL Normal 0.0-0.5 [facility] Comment on above: Performed By: #### B GLU #### [facility] [address] [place] [address] Eosinophils/100 WBC (Bld) 0.2 % Low 1.0-6.0 [facility] Comment on above: Performed By: #### B GLU #### [facility] [address] [place] [address] Erythrocyte distribution width (RBC) [Ratio] 13.0 % Normal 11.5-14.5 [facility] Comment on above: Performed By: #### B GLU #### [facility] [address] [place] [address] Granulocytes/100 WBC (Bld) 79.0 % Normal 40.0-80.0 [facility] Comment on above: Performed By: #### B GLU #### [facility] [address] [place] [address] Hematocrit (Bld) [Volume fraction] 38.5 % Low 40.0-52.0 [facility] Comment on above: Performed By: #### B GLU #### [facility] [address] [place] [address] Hemoglobin (Bld) [Mass/Vol] 13.1 g/dL Normal 13.0-18.0 [facility] Comment on above: Performed By: #### B GLU #### [facility] [address] [place] [address] Lymphocytes (Bld) [#/Vol] 1.0 10*3/uL Normal 1.0-4.3 [facility] Comment on above: Performed By: #### B GLU #### [facility] [address] [place] [address] Lymphocytes/100 WBC (Bld) 10.8 % Low 20.0-40.0 [facility] Comment on above: Performed By: #### B GLU #### [place] [address] [place] [address] MCH (RBC) [Entitic mass] 30.9 pg Normal 26.0-34.0 [facility] Comment on above: Performed By: #### B GLU #### [place] [address] [place] [address] MCHC 33.9 % Normal 32.0-36.0 [facility] Comment on above: Performed By: #### B GLU #### [place] [address] [place] [address] MCV (RBC) [Entitic vol] 91.1 fL Normal 80.0-98.0 [facility] Comment on above: Performed By: #### B GLU #### [place] [address] [place] [address] Monocytes (Bld) [#/Vol] 0.9 10*3/uL High 0.0-0.8 [facility] Comment on above: Performed By: #### B GLU #### [place] [address] [place] [address] Monocytes/100 WBC (Bld) 9.4 % Normal 2.0-10.0 [facility] Comment on above: Performed By: #### B GLU #### [facility] [address] [place] [address] Platelet mean volume (Bld) [Entitic vol] 9.9 fL Normal 7.4-10.4 [facility] Comment on above: Performed By: #### B GLU #### [place] [address] [place] [address] Platelets (Bld) [#/Vol] 163 10*3/uL Normal 140-440 [facility] Comment on above: Performed By: #### B GLU #### [facility] [address] [place] [address] RBC (Bld) [#/Vol] 4.23 10*6/uL Low 4.40-5.90 [facility] Comment on above: Performed By: #### B GLU #### [facility] [address] [place] [address] WBC (Bld) [#/Vol] 9.1 10*3/uL Normal 3.6-10.7 [facility] Comment on above: Performed By: #### B GLU #### [facility] [address] [place] [address] Lactic Acidon 03-19-2021 Lactate [Moles/Vol] 2.3 mmol/L Critically high 0.7-2.0 [facility] Comment on above: Performed By: #### L ACT3 ####[facility] [place] [address] Lactic Acid, Plasmaon 2020 Lactate [Moles/Vol] 2.3 mmol/L Critically high 0.7 - 2.0 mmol/L [facility] No Panel Informationon 03-19 Interpretation and review of laboratory results Abnormal [facility] Test Performed by [facility], [facility] [address] [place], [place] [id number] [place] [address] LAB [facility] RBC MORPHOLOGYon 03-19-2021 Poikilocytes Slight [facility] RBC (Bld) [#/Vol] ABNORMAL [facility] Tear Drop Cells Slight [facility] RBC Morphologyon 03-19-2021 Ovalocytes Slight Normal [facility] Comment on above: Performed By: #### B GLU #### [facility] [address] [place] [address] Poikilocytosis Slight Normal [facility] Comment on above: Performed By: #### B GLU #### [facility] [address] [place] [address] Polychromasia Slight Normal [facility] Comment on above: Performed By: #### B GLU #### [facility] [address] [place] [address] RBC morphology finding Nom (Bld) ABNORMAL Normal [facility] Comment on above: Performed By: #### B GLU #### [facility] [address] [place] [address] Tear Drop Forms Slight Normal [facility] Comment on above: Performed By: #### B GLU #### [facility] [address] [place] [address] Respiratory Panel, Molecular , with COVID-19 (Restricted: peds pts or suitable admitted adults)on 03-19-2021 Interpretation and review of laboratory results Abnormal [facility] Respiratory Panel Molecular, with COVID POSITIVE: Respiratory Syncytial Virus DETECTED. _ Expected Result: Not Detected The Properati Upper Respiratory Pathogens PCR Panel can detect the following targets: SARS-CoV-2, Adenovirus, Coronavirus 229E, Coronavirus HKU1, Coronavirus NL63, Coronavirus OC43, Human Metapneumovirus, Human Rhinovirus/Enteroviru s, Influenza A, Influenza B, Parainfluenza Virus 1, Parainfluenza Virus 2, Parainfluenza Virus 3, Parainfluenza Virus 4, Respiratory Syncytial Virus, Bordetella pertussis, Bordetella parapertussis, Chlamydia pneumoniae, Mycoplasma pneumoniae. Method: Real-time PCR. Abnormal [facility] Test Performed by [facility], [address] [place] [id number] [place] [address] LAB [facility] SARS-CoV-2, Flu A/B and RSVo n 03-19-2021 SARS-CoV-2 (COVID-19) RNA SHIRLEY+probe Ql (Unsp spec) SARS-CoV-2 --> Status: F Not Detected. Flu A PCR --> Status: F Not Detected. Flu B PCR --> Status: F Not Detected. RSV PCR --> Status: F DETECTED Expected Result: Not Detected _ Method: Real-time, RT-PCR This assay was developed by [employer] and distributed under an Emergency Use Authorization (EUA) granted by the FDA for the qualitative detection of nucleic acids from SARS-CoV-2, Influenza A, Influenza B, and Respiratory Syncytial Virus. Provider and patient fact sheets can be found at https://www.fda.gov/m edia/511948/download and https://www.fda.gov/m edia/499706/download. Expected Result: Not Detected _ Method: Real-time, RT-PCR This assay was developed by [employer] and distributed under an Emergency Use Authorization (EUA) granted by the FDA for the qualitative detection of nucleic acids from SARS-CoV-2, Influenza A, Influenza B, and Respiratory Syncytial Virus. Provider and patient fact sheets can be found at https://www.[facility].gov/ edia/964306/download and https://www.fda.gov/ edia/744648/download. Abnormal [facility] Comment on above: Performed By: #### C VFLR #### [facility] [address] [place] [address] , [address] Troponinon 03-19-2021 Troponin I.cardiac [Mass/Vol] 0.017 ng/mL 0.000 - 0.034 ng/mL [facility] Comment on above: . Test Performed by [facility] [address] [place], [place] [id number] [place] [address] LAB [facility] Troponin Ion 03-19-2021 Troponin I.cardiac [Mass/Vol] 0.017 ng/mL Normal 0.000-0.034 [facility] Comment on above: Result Comment: . Performed By: #### B MP3, TROPN ####[facility] [place] [address] XR CHEST PORTABLEon 03-19-20 Patient Name: KATHYA HOOPER Diagnostic Radiology ACCESSION EXAM DATE/TIME PROCEDURE ORDERING PROVIDER [id number] 03/19/2021 17:10 EST CR Chest Portable [id number] BRADY WILKINS CPT code 83361 Reason For Exam (CR Chest Portable) hypoxia Report Examination: AP portable chest Clinical Indication: hypoxia Comparison: 03/18/2021 Findings: Lungs appear normally inflated. There is no focal consolidation, effusion, or pulmonary edema identified. The cardiomediastinal silhouette is within normal limits. Degenerative changes visualized right shoulder and spine. Impression: No acute cardiopulmonary process. Report Dictated on --- Final --- Dictating Physician: MD MAGGIKESHAWN Signed Date and Time: 03/19/2021 5:21 pm Signed by: MD SIMPSON ANTHONY J Transcribed Date and Time: 03/19/2021 5:22 [place] Keshawn Ruiz MD - 03/19/2021 Patient Name: KATHYA HOOPER Diagnostic Radiology ACCESSION EXAM DATE/TIME PROCEDURE ORDERING PROVIDER [id number] 03/19/2021 17:10 EST CR Chest Portable [id number] -BLAKE DESAIIN CPT code 98030 Reason For Exam (CR Chest Portable) hypoxia [...] Date and Time: 03/19/2021 5:22 [facility] Work Phone: Radiology Study observation (narrative) [facility] Work Phone: XR CHEST PORTABLEOrdered By: Keshawn Simpson on 03-19-2021 [facility] Work Phone: Basic Metabolic Panelon 03-01 Calcium [Mass/Vol] 8.4 mg/dL Normal 8.4-10.4 [facility] Comment on above: Performed By: #### H MAYKEL BMP3 #### [facility] [address] [place] [address] Glucose [Mass/Vol] 110 mg/dL High 70-100 [facility] Comment on above: Performed By: #### H MAYKEL BMP3 #### [facility] [address] [place] [address] Anion gap [Moles/Vol] 7 mmol/L Normal 3-13 [facility] Comment on above: Performed By: #### H MAYKEL BMP3 #### [facility] [address] [place] [address] CO2 [Moles/Vol] 26 mmol/L Normal 22-30 [facility] Comment on above: Performed By: #### H ALCIRAF, BMP3 #### [facility] [address] [place] [address] Creatinine [Mass/Vol] 0.54 mg/dL Normal 0.52-1.25 [facility] Comment on above: Performed By: #### H EMDF, BMP3 #### [facility] [address] [place] [address] eGFR OTHER > 90.0 Normal >60 [facility] Comment on above: Result Comment: KDIG [...] #### H MAYKEL BMP3 #### [facility] [address] [place] [address] GFR/1.73 sq M.predicted among blacks MDRD (S/P/Bld) [Vol rate/Area] mL/min/{1.73_m2} Normal >60 [facility] Comment on above: Performed By: #### H ALCIRAF, BMP3 #### [facility] [address] [place] [address] Urea nitrogen [Mass/Vol] 18 mg/dL High 7-17 [facility] Comment on above: Performed By: #### H EMDF, BMP3 #### [facility] [address] [place] [address] Potassium [Moles/Vol] 3.9 mmol/L Normal 3.5-5.1 [facility] Comment on above: Performed By: #### H EMDF, BMP3 #### [facility] [address] [place] [address] Chloride [Moles/Vol] 104 mmol/L Normal 98-107 [facility] Comment on above: Performed By: #### H EMDF, BMP3 #### [facility] [address] [place] [address] Sodium [Moles/Vol] 137 mmol/L Normal 135-145 [facility] Comment on above: Performed By: #### H EMDF, BMP3 #### [facility] [address] [place] [address] Anion gap [Moles/Vol] 7 mmol/L 3 - 13 mmol/L [facility] Calcium [Mass/Vol] 8.4 mg/dL 8.4 - 10. 4 mg/dL [facility] Chloride [Moles/Vol] 104 mmol/L 98 - 10 7 mmol/L [facility] CO2 [Moles/Vol] 26 mmol/L 22 - 30 mmol/L [facility] Creatinine [Mass/Vol] 0.54 mg/dL 0.52 - 1.25 mg/dL [facility] EGFR IF NonAfrican Malaysian >90.0 >60 mL/min [facility] Comment on above: KDIGO guidelines pro [...] 710 pg/mL High 0 - 125 pg/mL [facility] Test Performed by [facility], [address] [place] [address] LAB [facility] CBC Auto Differentialon 03-01 Absolute Baso # [...] [#/Vol] 8.8 10*3/uL 3.6 - 10.7 10*3/uL [facility] Test Performed by [address] LAB [facility] COVID-19, Flu A/B, and RSV C [facility] 03-18-2021 Influenza A by PCR Not detected [facility] Influenza B by PCR Not detected [facility] Interpretation and review of laboratory results Abnormal [facility] RSV PCR DETECTED Expected Result: Not Detected _ Method: Real-time, RT-PCR This assay was developed by [employer] and distributed under an Emergency Use Authorization (EUA) granted by the FDA for the qualitative detection of nucleic acids from SARS-CoV-2, Influenza A, Influenza B, and Respiratory Syncytial Virus. Provider and patient fact sheets can be found at https://www.fda.gov/m edia/046858/download and https://www.fda.gov/m edia/609510/download. Abnormal [facility] SARS-CoV-2 (COVID-19) RNA SHIRLEY+probe Ql (Unsp spec) Not detected [facility] Test Performed by [place] [address] [place], [place] [address] [facility] LAB [facility] CR Chest Portableon 03-18-20 21 CR Chest Portable Patient Name: KATHYA HOOPER Diagnostic Radiology ACCESSION EXAM DATE/TIME PROCEDURE ORDERING PROVIDER [id number] 03/18/2021 15:30 EST CR Chest Portable [id number] -BOO CASTRO CPT code 88053 Reason For Exam (CR Chest Portable) sob, [...] and Time: 03/18/2021 3:35 Normal [facility] CTA Chest W WO (PE study)on 03-18-2021 Patient Name: KATHYA HOOPER Computed Tomography ACCESSION EXAM DATE/TIME PROCEDURE ORDERING PROVIDER [id number] 03/18/2021 16:27 EST CTA Chest w/ + w/o [id number] -Alyson CASTRO CPT code 13732 Q9967 Reason For Exam (CTA Chest w/ + w/o Contrast) pulmonary embolus Report CTA chest with and without contrast History: chest pain Protocol: 1 mm images after IV contrast, 3D rendering performed by ct on a separate workstation No evidence of aortic dissection or pulmonary embolism. Patchy scattered bilateral lung infiltrates. Minimal left pleural effusion. No lymphadenopathy. IMPRESSION: Patchy scattered bilateral lung infiltrates. Minimal left pleural effusion. Report Dictated on --- Final --- Dictating Physician: MD MICHAELS MALAY Signed Date and Time: 03/18/2021 4:35 pm Signed by: MD MICHAELS MALAY Transcribed Date and Time: 03/18/2021 4:36 [facility] Malcolm Michaels MD - 03/18/2021 Patient Name: KATHYA HOOPER Computed Tomography ACCESSION EXAM DATE/TIME PROCEDURE ORDERING PROVIDER [id number] 03/18/2021 16:27 EST CTA Chest w/ + w/o [id number] -CASTRO, Contrast BOO CPT code 89890 Q9967 Reason For Exam (CTA Chest w/ [...] MALAY Transcribed Date and Time: 03/18/2021 4:36 [facility] Work Phone: Radiology Study observation (narrative) [facility] Work Phone: CTA Chest W WO (PE study)Ord ered By: Malcolm Michaels on 03-18-2021 [facility] Work Phone: CTA Chest w/ + w/o Contrasto n 03-18-2021 CTA Chest w/ + w/o Contrast Patient Name: KATHYA HOOPER Computed Tomography ACCESSION EXAM DATE/TIME PROCEDURE ORDERING PROVIDER [id number] 03/18/2021 16:27 EST CTA Chest w/ + w/o [id number] -CASTRO, Contrast BOO CPT code 01214 Q9967 Reason For Exam (CTA Chest w/ [...] and Time: 03/18/2021 4:36 Normal [facility] CTA HEAD NECK W WO CONTRASTo n 03-18-2021 [id number] ACCESSION EXAM DATE/TIME PROCEDURE ORDERING PROVIDER [id number] 03/18/2021 16:26 EST CTA Head/Neck w/ + w/o [id number] alyson ARCHIBALD CPT code 93101 44681 Q9967 Reason For Exam (CTA Head/Neck w/ + w/o contrast) AMS, dysphasia and ?aphasia possibly since yesterday- very poor historian from assisted w/ unclear prior deficits - here w/ [...] on --- Final --- Dictating Physician: MD FREDI, GREYSON HICKEY Signed Date and Time: 03/18/2021 4:51 pm Signed by: MD FREDI, GREYSON HICKEY Transcribed Date and Time: 03/18/2021 4:52 [facility] Greyson Rai MD - 03/18/2021 Patient Name: KATHYA HOOPER Computed Tomography ACCESSION EXAM DATE/TIME PROCEDURE ORDERING PROVIDER [id number] 03/18/2021 16:26 EST CTA Head/Neck w/ + w/o [id number] -CASTRO, alyson HADDAD CPT code 56161 04539 Q9967 Reason For Exam (CTA Head/Neck w/ + w/o contrast) AMS, dysphasia and ?aphasia possibly since yesterday- very poor historian from assisted w/ unclear prior deficits - here w/ [...] on --- Final --- Dictating Physician: MD FREDI, GREYSON HICKEY Signed Date and Time: 03/18/2021 4:51 pm Signed by: MD FREDI, GREYSON HICKEY Transcribed Date and Time: 03/18/2021 4:52 [facility] Work Phone: Radiology Study observation (narrative) [facility] Work Phone: CTA HEAD NECK W WO CONTRASTO rdered By: Greyson Fredi on 03-18-2021 [facility] Work Phone: CTA Head/Neck w/ + w/o contr birgit 03-18-2021 CTA Head/Neck w/ + w/o contrast Patient Name: KATHYA HOOPER Computed Tomography ACCESSION EXAM DATE/TIME PROCEDURE ORDERING PROVIDER [id number] 03/18/2021 16:26 EST CTA Head/Neck w/ + w/o [id number] -CASTRO, alyson HADDAD CPT code 33222 62021 Q9967 Reason For Exam (CTA Head/Neck w/ + w/o contrast) AMS, dysphasia and ?aphasia possibly since yesterday- very poor historian from assisted w/ unclear prior deficits - here w/ [...] Report Dictated on Final Dictating Physician: MD FREDI, GREYSON HICKEY Signed Date and Time: 03/18/2021 4:51 pm Signed by: MD RAI WASSIM OSAMA Transcribed Date and Time: 03/18/2021 4:52 Normal [facility] ED Provider Noteon ED Provider Note [...] patient come from an ECF, SNF, Rehab, Halfway or other Congregate setting: no (If yes to above patient needs a Covid-19 test) HPI Kathya Hooper is a 66 y.o. 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 Normal [facility] Hemogram w/ Autodiffon 03-18 Abs Baso Cnt 0.0 10*3/uL Normal 0.0-0.2 [facility] Comment on above: Performed By: #### H MAYKEL BMP3 #### [facility] [address] [place] [address] Abs Neutrophile Cnt 7.3 10*3/uL High 1.8-7.0 [facility] Comment on above: Performed By: #### H MAYKEL BMP3 #### [facility] [address] [place] [address] Basophils/100 WBC (Bld) 0.5 % Normal 0.0-2.0 S [facility] Comment on above: Performed By: #### H MAYKEL BMP3 #### [facility] [address] [place] [address] Eosinophils (Bld) [#/Vol] 0.0 10*3/uL Normal 0.0-0.5 [facility] Comment on above: Performed By: #### H EMDMaurcie BMP3 #### [facility] [address] [place] [address] Eosinophils/100 WBC (Bld) 0.1 % Low 1.0-6.0 [facility] Comment on above: Performed By: #### H MAYKEL BMP3 #### [facility] [address] [place] [address] Erythrocyte distribution width (RBC) [Ratio] 12.9 % Normal 11.5-14.5 [facility] Comment on above: Performed By: #### H EMDMaurice BMP3 #### [facility] [address] [place] [address] Granulocytes/100 WBC (Bld) 82.8 % High 40.0-80.0 [facility] Comment on above: Performed By: #### H EMDF, BMP3 #### [facility] [address] [place] [address] Hematocrit (Bld) [Volume fraction] 38.3 % Low 40.0-52.0 [facility] Comment on above: Performed By: #### H EMDF, BMP3 #### [facility] [address] [place] [address] Hemoglobin (Bld) [Mass/Vol] 13.6 g/dL Normal 13.0-18.0 [facility] Comment on above: Performed By: #### H EMDF, BMP3 #### [facility] [address] [place] [address] Lymphocytes (Bld) [#/Vol] 0.7 10*3/uL Low 1.0-4.3 [facility] Comment on above: Performed By: #### H EMDF, BMP3 #### [facility] [address] [place] [address] Lymphocytes/100 WBC (Bld) 7.6 % Low 20.0-40.0 [facility] Comment on above: Performed By: #### H EMDF, BMP3 #### [facility] [address] [place] [address] MCH (RBC) [Entitic mass] 32.0 pg Normal 26.0-34.0 [facility] Comment on above: Performed By: #### H EMDF, BMP3 #### [facility] [address] [place] [address] MCHC 35.4 % Normal 32.0-36.0 [facility] Comment on above: Performed By: #### H EMDF, BMP3 #### [facility] [address] [place] [address] MCV (RBC) [Entitic vol] 90.2 fL Normal 80.0-98.0 S [facility] Comment on above: Performed By: #### H EMDF, BMP3 #### [facility] [address] [place] [address] Monocytes (Bld) [#/Vol] 0.8 10*3/uL Normal 0.0-0.8 [facility] Comment on above: Performed By: #### H MAYKEL BMP3 #### [facility] [address] [place] [address] Monocytes/100 WBC (Bld) 9.0 % Normal 2.0-10.0 S [facility] Comment on above: Performed By: #### H MAYKEL BMP3 #### [facility] [address] [place] [address] Platelet mean volume (Bld) [Entitic vol] 9.8 fL Normal 7.4-10.4 [facility] Comment on above: Performed By: #### H MAYKEL BMP3 #### [facility] [address] [place] [address] Platelets (Bld) [#/Vol] 129 10*3/uL Low 140-440 [facility] Comment on above: Performed By: #### H MAYKEL BMP3 #### [facility] [address] [place] [address] RBC (Bld) [#/Vol] 4.24 10*6/uL Low 4.40-5.90 [facility] Comment on above: Performed By: #### H MAYKEL BMP3 #### [facility] [address] [place] [address] WBC (Bld) [#/Vol] 8.8 10*3/uL Normal 3.6-10.7 [facility] Comment on above: Performed By: #### H EMDMaurice BMP3 #### [facility] [address] [place] [address] MAGNESIUMon 03-18-2021 Magnesium [Mass/Vol] 2.0 mg/dL 1.6 - 2 .3 mg/dL [facility] Magnesiumon 03-18-2021 Magnesium [Mass/Vol] 2.0 mg/dL Normal 1.6-2.3 [facility] Comment on above: Performed By: #### H EMDF, BMP3 #### [facility] [address] [place] [address] NT pro BNPon 03-18-2021 Natriuretic peptide B (Bld) [Mass/Vol] 710 pg/mL High 0-125 [facility] Comment on above: Performed By: #### H MITALI BRAR #### [facility] [address] [place] [address] No Panel Informationon 03-18 Test Performed by [facility], [address] [place] [address] [facility] LAB [facility] PROTIME/INR & PTTon 03-18-20 aPTT Coag (Bld) [Time] 30.7 s High 20.0 - 30.5 s [facility] Comment on above: NOTE: The therapeuti c time for Heparin anticoagulation, based on Xa activity inhibition, is an APTT of 46-80 seconds. INR Coag (Bld) [Relative time] 1.1 {INR} [facility] Comment on above: Recommended Anticoag ulant [...] review of laboratory results Abnormal [facility] PT Coag (PPP) [Time] 11.4 s 9.0 - 12.0 s [facility] Comment on above: . Test Performed by [facility], [address] [place], [place] [id number] [place] [address] LAB [facility] Protime AND APTTon aPTT Coag (Bld) [Time] 30.7 s High 20.0-30.5 [facility] Comment on above: Result Comment: NOTE : The therapeutic time for Heparin anticoagulation, based on Xa activity inhibition, is an APTT of 46-80 seconds. Performed By: #### H MITALI BRAR #### [facility] [address] [place] [address] INR 1.1 Normal 0.9-1.1 [facility] Comment on above: Result Comment: Yefri [...] prevent Myocardial Infarction Performed By: #### H KORIN BRAR3 #### [facility] [address] [place] [address] PT Coag (PPP) [Time] 11.4 s Normal 9.0-12.0 [facility] Comment on above: Result Comment: . Performed By: #### H KORIN BRAR3 #### [facility] [address] [place] [address] SARS-CoV-2, Flu A/B and RSVo n 03-18-2021 SARS-CoV-2 (COVID-19) RNA SHIRLEY+probe Ql (Unsp spec) SARS-CoV-2 --> Status: F Not Detected. Flu A PCR --> Status: F Not Detected. Flu B PCR --> Status: F Not Detected. RSV PCR --> Status: F DETECTED Expected Result: Not Detected _ Method: Real-time, RT-PCR This assay was developed by [employer] and distributed under an Emergency Use Authorization (EUA) granted by the FDA for the qualitative detection of nucleic acids from SARS-CoV-2, Influenza A, Influenza B, and Respiratory Syncytial Virus. Provider and patient fact sheets can be found at https://www.fda.gov/m edia/173482/download and https://www.fda.gov/m edia/974201/download. Expected Result: Not Detected _ Method: Real-time, RT-PCR This assay was developed by [employer] and distributed under an Emergency Use Authorization (EUA) granted by the FDA for the qualitative detection of nucleic acids from SARS-CoV-2, Influenza A, Influenza B, and Respiratory Syncytial Virus. Provider and patient fact sheets can be found at https://www.fda.gov/m edia/637195/download and https://www.fda.gov/m edia/024433/download. Abnormal [facility] Comment on above: Performed By: #### C VFLR #### [facility] [address] [place] [address] , [address] TS GELon 03-18-2021 TS GEL ABO Group: O Rh, Gel: POS Antibody Screen Gel: NEG Normal [facility] Comment on above: Performed By: #### T SGL #### [facility] TYPE AND SCREENon 03-18-2021 ABO Grouping O [facility] Rh Type Positive [facility] Test Performed by [facility], [address], [place], [place] [address] [facility] XR CHEST PORTABLEon 03-18-20 Patient Name: KATHYA HOOPER Diagnostic Radiology ACCESSION EXAM DATE/TIME PROCEDURE ORDERING PROVIDER [id number] 03/18/2021 15:30 EST CR Chest Portable [id number] [place] [address] CPT code 41188 Reason For Exam (CR Chest Portable) sob, [...] KRIKOR Transcribed Date and Time: 03/18/2021 3:35 [facility] Alejandra Turner MD - 03/18/2021 Patient Name: KATHYA HOOPER Diagnostic Radiology ACCESSION EXAM DATE/TIME PROCEDURE ORDERING PROVIDER [id number] 03/18/2021 15:30 EST CR Chest Portable [id number] [place] [address] CPT code 59679 Reason For Exam (CR Chest Portable) sob, [...] was seen and treated independently by the sales professional bilingual. I was present and available in the [...] Diagnosis Date ? TREVER (acute kidney injury) ([facility]) ? Alcohol abuse 07/08/2018 ? Anxiety ? Depression ? Fall 06/2018 ? Schizophrenia ([facility]) SURGICALHISTORY Past Surgical History: Procedure Laterality [...] Strain: ? (more content not included)... Normal [facility] [place] GI TUBE EVALUATION W CONT RASTOrdered By: Helen Toledo on 10-30-2020 Patient Name: KATHYA HOOPER Fluoroscopy ACCESSION EXAM DATE/TIME PROCEDURE ORDERING PROVIDER [id number] 10/30/2020 15:07 EDT RF Intro Long GI Tube w/ KRISTA TOLEDO AMY L Fluoro CPT code 20977 Reason For Exam (RF Intro Long GI [...] J Transcribed Date and Time: 10/30/2020 4:06 [facility] Work Phone: Jaquan, [facility] Incoming Radiology Results From [facility] - 10/30/2020 4:07 PM EDT Patient Name: KATHYA HOOPER Fluoroscopy ACCESSION EXAM DATE/TIME PROCEDURE ORDERING PROVIDER [id number] 10/30/2020 15:07 EDT RF Intro Long GI Tube w/ KRISTA TOLEDO AMY L Fluoro CPT code 91370 Reason For Exam (RF Intro Long GI [...] and Time: 10/30/2020 4:06 [facility] Work Phone: [facility] Work Phone: RF Intro Long GI Tube w/ Flu oroon 10-30-2020 RF Intro Long GI Tube w/ Fluoro Patient Name: KATHYA HOOPER Fluoroscopy ACCESSION EXAM DATE/TIME PROCEDURE ORDERING PROVIDER [id number] 10/30/2020 15:07 EDT RF Intro Long GI Tube w/ KRISTA TOLEDO AMY L Fluoro CPT code 50827 Reason For Exam (RF Intro Long GI [...] J Transcribed Date and Time: 10/30/2020 4:06 [facility] ED Provider Noteon ED Provider Note [facility] ED EMERGENCY DEPARTMENT ENCOUNTER Pt Name: Kathya [...] Gatherings with Friends and Family: ? Attends Anabaptist Services: ? Active Member of Clubs or [...] (more content not included)... Normal [facility] [place] GI TUBE EVALUATION W CONT RASTOrdered By: Elizabeth Moura on 09-22-2020 Patient Name: KATHYA HOOPER Fluoroscopy ACCESSION EXAM DATE/TIME PROCEDURE ORDERING PROVIDER [id number] 09/22/2020 04:09 EDT RF Intro Long GI Tube w/ 5816 -ELIZABETH MOURA CPT code 15483 Reason For Exam (RF Intro Long GI [...] Date and Time: 09/22/2020 5:11 [facility] Work Phone: [facility] Results From [facility] - 09/22/2020 5:11 AM EDT Patient Name: KATHYA HOOPER Fluoroscopy ACCESSION EXAM DATE/TIME PROCEDURE ORDERING PROVIDER [id number] 09/22/2020 04:09 EDT RF Intro Long GI Tube w/ 5816 -ZENYELIZABETH LI Fluoro CPT code 61185 Reason For Exam (RF Intro Long GI [...] JEFFREY Transcribed Date and Time: 09/22/2020 5:11 [facility] Work Phone: [facility] Work Phone: RF Intro Long GI Tube w/ Flu oroon 09-22-2020 RF Intro Long GI Tube w/ Fluoro Patient Name: KATHYA HOOPER Fluoroscopy ACCESSION EXAM DATE/TIME PROCEDURE ORDERING PROVIDER [id number] 09/22/2020 04:09 EDT RF Intro Long GI Tube w/ 5816 -ZENYELIZABETH LI Fluoro CPT code 31875 Reason For Exam (RF Intro Long GI [...] and Time: 09/22/2020 5:11 Normal [facility] ED Provider Noteon ED Provider Note [facility] ED EMERGENCY DEPARTMENT ENCOUNTER Pt Name: [...] otherwise acutely negative except as in the [place]. PAST MEDICAL HISTORY Past Medical History: Diagnosis [...] (AQUAPHOR) ointment Apply topically as needed. Balsam Froilan-[place] Oil (VENELEX) OINT ointment Apply topically every [...] file Gets together: Not on file Attends synagogue service: Not on file Active member of [...] for level (more content not included)... Normal [facility] [place] GI TUBE EVALUATION W BRANDON Warner 06-26-2020 Patient Name: KATHYA HOOPER Fluoroscopy ACCESSION EXAM DATE/TIME PROCEDURE ORDERING PROVIDER [id number] 06/26/2020 20:20 EST RF Intro Long GI Tube w/ [id number] -ABELARDO RIOS CPT code 55190 Reason For Exam (RF Intro Long GI [...] Phone: Jaquan, [facility] Incoming Radiology Results From [facility] - 06/26/2020 9:16 PM EST Patient Name: KATHYA HOOPER Fluoroscopy ACCESSION EXAM DATE/TIME PROCEDURE ORDERING PROVIDER [id number] 06/26/2020 20:20 EST RF Intro Long GI Tube w/ [id number] -ABELARDO RIOS CPT code 30633 Reason For Exam (RF Intro Long GI [...] Tolerated well, no immediate complications [facility] Work Phone: RF Intro Long GI Tube w/ Flu oroon 06-26-2020 RF Intro Long GI Tube w/ Fluoro Patient Name: KATHYA HOOPER Fluoroscopy ACCESSION EXAM DATE/TIME PROCEDURE ORDERING PROVIDER [id number] 06/26/2020 20:20 EST RF Intro Long GI Tube w/ 186838 -ABELARDO RIOS CPT code 80715 Reason For Exam (RF Intro Long GI [...] and Time: 06/26/2020 9:16 Normal [facility] Clinical Summary: HMSPatient IDon 05-22-2019 [facility] Work Phone: Office Visit: New - 1st visi t with practice, Rm: 2on 05-22-2019 NEGATED: Highlighted rowCT scan history of the right lower extremity on 05/16/2019 at [facility] Work Phone: NEGATED: Highlighted rowTobacco smoking status NHIS current someday smoker [facility] Work Phone: NEGATED: Highlighted rowxray history of the pelvis with hip on 05/11/2019 at [facility] , of the pelvis on 05/13/2019 at [facility] Work Phone: CT LOWER EXTREMITY RIGHT WO CONTRASTOrdered By: Elizabeth Moura on 05-16-2019 Patient Name: KATHYA HOOPER ---CT--- Exam Date/Time 05/16/2019 21:10:[address] Low Ext w/o Contrast Right Ordering Physician [id number] EL[address] BARBER Accession Number [id number] CPT4 Codes 76974 () Reason For Exam right hip pain, [...] Phone: Jaquan, [facility] Incoming Radiology Results From [facility] - 05/16/2019 9:24 PM EST Patient Name: KATHYA HOOPER ---CT--- Exam Date/Time 05/16/2019 21:10:[address] Low Ext w/o Contrast Right Ordering Physician ELIZABETH BARKER Accession Number [id number] CPT4 Codes 51390 () Reason For Exam right hip pain, [...] Date and Time: 05/16/2019 9:24 [facility] Work Phone: Differential,Body Fluidson 0 09-27-2018 Other Cells 46 % Normal [facility] Comment on above: Result Comment: Bloo dy specimen with reactive mesothelial cells and chronic inflammation with occasional hemophagocytosis. 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 [address] CULTURE AND STAIN - FLUIDon 09-25-2018 CULTURE AND STAIN - FLUID CULTURE & STAIN - FLUID --> Status: F No growth at 5 days. STAIN GRAM --> Status: F Moderate polymorphonuclear cells/lpf. Moderate mononuclear cells/lpf No organisms seen. Cytocentrifugation performed. Moderate mononuclear cells/lpf No organisms seen. Cytocentrifugation performed. Normal [facility] Comment on above: Performed By: #### H EMDF, PT, BMP3M, PHOS3, MG3, CK3 #### [facility] [address] [place] #### VD25H #### [facility] [address] [place] [address] Cell Count,Body Fluidon 05-2 Nucleated Cells 2391 {cells}/uL Normal [facility] Comment on above: Performed By: #### H EMDF, PT, BMP3M, PHOS3, MG3, CK3 #### [place] [address] [place], [place] #### VD25H #### [facility] [address] [place] [address] RBC [place] [address] {RBC}/uL Normal [facility] Comment on above: Performed By: #### H EMDF, PT, BMP3M, PHOS3, MG3, CK3 #### [place] [address] [place] #### VD25H #### [facility] [address] [place] [address] Fluid Type Thoracentesis Normal [facility] Comment on above: Performed By: #### H EMDF, PT, BMP3M, PHOS3, MG3, CK3 #### [place] [address] [place] #### VD25H #### [facility] [address] [place] [address] Differential,Body Fluidson 0 09-25-2018 Lymphocytes/100 WBC (Bld) 28 % Normal [facility] Comment on above: Performed By: #### H EMDF, PT, BMP3M, PHOS3, MG3, CK3 #### [place] [address] [facility] [place] #### VD25H #### [facility] [address] [place] [address] Monocytes/100 WBC (Bld) 1 % Normal [facility] Comment on above: Performed By: #### H EMDF, PT, BMP3M, PHOS3, MG3, CK3 #### [place] [address] [place] #### VD25H #### [facility] [address] [place] [address] Neutrophils/100 WBC (Bld) 25 % Normal [facility] Comment on above: Performed By: #### H EMDF, PT, BMP3M, PHOS3, MG3, CK3 #### [place] [address] [place] #### VD25H #### [facility] [address] [place] [address] Cells Counted for Diff 100 Normal [facility] Comment on above: Performed By: #### H EMDF, PT, BMP3M, PHOS3, MG3, CK3 #### [place] [address] [place] #### VD25H #### [facility] [address] [place] [address] LDH, Body Fluidon 09-25-2018 LDH, Body Fluid 174 U/L Normal No Range [facility] Comment on above: Performed By: #### H EMDF, PT, BMP3M, PHOS3, MG3, CK3 #### [place] [address] [place] #### VD25H #### [facility] [address] [place] [address] Protein, Total Body Fluidon 09-25-2018 Protein,Total-Body Fld 3.4 g/dL Normal No Range [facility] Comment on above: Performed By: #### H EMDF, PT, BMP3M, PHOS3, MG3, CK3 #### [place] [address] [place] #### VD25H #### [facility] [address] [place] [address] US Thora-Aspir Pleura w/ Evelin geon 09-25-2018 US Thora-Aspir Pleura w/ Image Patient Name: KATHYA HOOPER Ultrasound Exam Date/Time 09/25/2018 13:23:41 EDT Exam US Thora-Aspir Pleura w/ Image Ordering Physician SALO DAVIS Accession Number [id number] CPT4 Codes 37619 () Reason For Exam pleural effusion Report [...] Transcribed Date and Time: 09/25/2018 3:07 Normal [facility] CULTURE MYCOBACTERIAon 09-03 CULTURE MYCOBACTERIA CULTURE MYCOBACTERI A --> Status: F No acid-fast bacilli isolated after 6 weeks incubation. Normal [facility] Comment on above: Performed By: #### H EMDF, PT, BMP3M, PHOS3, MG3, CK3 #### [facility] [address] [place] [address] #### VD25H #### [facility] [address] [place] [address] CULTURE URINEon 08-23-2018 CULTURE URINE CULTURE URINE --> Status: F No growth (<1,000 CFU/ml). Normal [facility] Comment on above: Order Comment: Speci men Source Comment:Urine, clean catch Performed By: #### H EMDF, PT, BMP3M, PHOS3, MG3, CK3 #### [facility] [address] [place] [address] #### VD25H #### [facility] [address] [place] [address] CR Chest Portableon 08-23-19 19 CR Chest Portable Patient Name: KATHYA HOOPER Diagnostic Radiology Exam Date/Time 08/22/2018 07:07:07 EDT Exam CR Chest Portable Ordering Physician HIRAM ONEIL Accession Number [id number] CPT4 Codes 97363 () Reason For Exam dyspnea Report Portable [...] Transcribed Date and Time: 08/22/2018 7:31 Normal [facility] Glucose,Bedsideon 08-22-2018 Glucose mass conc 127 mg/dL High 70-100 [facility] Comment on above: Result Comment: Test performed by glucose meter. Results may be 10%-15% lower than serum/plasma values. (CLIA ID [id number]) Performed By: #### H EMDF, PT, BMP3M, PHOS3, MG3, CK3 #### [facility] [address] [place], [place] #### VD25H #### [facility] [address] [place] [address] Urinalysis,Macroon 9 Appearance Nom (U) clear Normal Clear [facility] Comment on above: Performed By: #### H EMDF, PT, BMP3M, PHOS3, MG3, CK3 #### [facility] [address] [facility] #### VD25H #### [facility] [address] [place] [address] Bilirubin,Ur Negative Normal Negative [facility] Comment on above: Performed By: #### H EMDF, PT, BMP3M, PHOS3, MG3, CK3 #### [place] [address] [facility] #### VD25H #### [facility] [address] [place] [address] Color Nom (U) dk.yel Normal Lt. Yellow [facility] Comment on above: Performed By: #### H EMDF, PT, BMP3M, PHOS3, MG3, CK3 #### [facility] [address] [facility] #### VD25H #### [facility] [address] [place] [address] Glucose Ql (U) NORM Normal Negative [facility] Comment on above: Performed By: #### H EMDF, PT, BMP3M, PHOS3, MG3, CK3 #### [facility] [address] [facility] #### VD25H #### [facility] [address] [place] [address] Ketone,Urine Negative Normal Negative [facility] Comment on above: Performed By: #### H EMDF, PT, BMP3M, PHOS3, MG3, CK3 #### [facility] [address] [facility] #### VD25H #### [facility] [address] [place] [address] Nitrite Ql (U) Negative Normal Negative [facility] Comment on above: Performed By: #### H EMDF, PT, BMP3M, PHOS3, MG3, CK3 #### [place] [address] [place] #### VD25H #### [facility] [address] [place] [address] Occult Blood,Ur Negative Normal Negative [facility] Comment on above: Performed By: #### H EMDF, PT, BMP3M, PHOS3, MG3, CK3 #### [address] [place] #### VD25H #### [facility] [address] [place] [address] pH (U) 8.0 Normal 5.0-8.0 [facility] Comment on above: Performed By: #### H EMDF, PT, BMP3M, PHOS3, MG3, CK3 #### [place] [address] [place] #### VD25H #### [facility] [address] [place] [address] Protein mass conc (U) Negative Normal Negative [facility] Comment on above: Performed By: #### H EMDF, PT, BMP3M, PHOS3, MG3, CK3 #### [place] [address] [place] #### VD25H #### [facility] [address] [place] [address] Specific [place],Urine 1.015 Normal 1.005-1.030 S [facility] Comment on above: Performed By: #### H EMDF, PT, BMP3M, PHOS3, MG3, CK3 #### [address] [place] #### VD25H #### [place] [address] [place] [address] Urobilinogen Qn (U) 1 mg/dL Normal 0-1 [facility] Comment on above: Performed By: #### H EMDF, PT, BMP3M, PHOS3, MG3, CK3 #### [place] [address] [facility] #### VD25H #### [facility] [address] [place] [address] WBC #/vol (Bld) Negative Normal Negative [facility] Comment on above: Performed By: #### H EMDF, PT, BMP3M, PHOS3, MG3, CK3 #### [place] [address] [place] #### VD25H #### [facility] [address] [place] [address] Basic Metabolic Panelon 04-2 Calcium mass conc 7.8 mg/dL Low 8.4-10.4 [facility] Comment on above: Performed By: #### H EMDF, PT, BMP3M, PHOS3, MG3, CK3 #### [place] [address] [facility] [place] #### VD25H #### [facility] [address] [place] [address] Glucose mass conc 102 mg/dL High 70-100 [facility] Comment on above: Performed By: #### H EMDF, PT, BMP3M, PHOS3, MG3, CK3 #### [place] [address] [facility] #### VD25H #### [facility] [address] [place] [address] Anion gap molar conc 0 Normal [facility] Comment on above: Performed By: #### H EMDF, PT, BMP3M, PHOS3, MG3, CK3 #### [place] [address] [facility] #### VD25H #### [facility] [address] [place] [address] CO2 molar conc 37 mmol/L High 22-30 [facility] Comment on above: Performed By: #### H EMDF, PT, BMP3M, PHOS3, MG3, CK3 #### [address] [address] #### VD25H #### [facility] [address] [place] [address] Creatinine mass conc 0.46 mg/dL Low 0.52-1.25 [facility] Comment on above: Performed By: #### H EMDF, PT, BMP3M, PHOS3, MG3, CK3 #### [address] [address] #### VD25H #### [facility] [address] [place] [address] GFR/1.73 sq M predicted among blacks MDRD vol rate/area (S/P/Bld) mL/min/{1.73_m2} Normal >60 [facility] Comment on above: Performed By: #### H EMDF, PT, BMP3M, PHOS3, MG3, CK3 #### [address] [address] #### VD25H #### [facility] [address] [place] [address] GFR/1.73 sq M predicted among non-blacks MDRD vol rate/area (S/P/Bld) mL/min/{1.73_m2} Normal >60 [facility] Comment on above: Result Comment: Sour ce- MDRD equation with creatinine calibration to IDMS(NKDEP) eGFR not recommended for drug dose adjustment Performed By: #### H EMDF, PT, BMP3M, PHOS3, MG3, CK3 #### [address] [address] #### VD25H #### [facility] [address] [place] [address] Urea nitrogen mass conc 7 mg/dL Normal 7-20 S [facility] Comment on above: Performed By: #### H EMDF, PT, BMP3M, PHOS3, MG3, CK3 #### [address] #### VD25H #### [facility] [address] [place] [address] Potassium molar conc 3.7 mmol/L Normal 3.5-5.1 [facility] Comment on above: Performed By: #### H EMDF, PT, BMP3M, PHOS3, MG3, CK3 #### [facility] [address] [place] #### VD25H #### [facility] [address] [place] [address] Chloride molar conc 101 mmol/L Normal 98-107 [facility] Comment on above: Performed By: #### H EMDF, PT, BMP3M, PHOS3, MG3, CK3 #### [facility] [address] [place] #### VD25H #### [facility] [address] [place] [address] Sodium molar conc 138 mmol/L Normal 135-145 [facility] Comment on above: Performed By: #### H EMDF, PT, BMP3M, PHOS3, MG3, CK3 #### [facility] [address] [place] #### VD25H #### [facility] [address] [place] [address] CR Chest Portableon 08-22-19 19 CR Chest Portable Patient Name: KATHYA HOOPER Diagnostic Radiology Exam Date/Time 08/21/2018 09:46:47 EDT Exam CR Chest Portable Ordering Physician MALLORY STAPLES Accession Number [id number] CPT4 Codes 05874 () Reason For Exam edema Report PORTABLE [...] and Time: 08/21/2018 11:14 Normal [facility] CULTURE ANAEROBEon 9 CULTURE ANAEROBE CULTURE ANAEROBE --> Status: F No growth of anaerobes at 5 days. Normal [facility] Comment on above: Order Comment: or co llected Performed By: #### H EMDF, PT, BMP3M, PHOS3, MG3, CK3 #### [facility] [employer] [facility] [address] [place], [place] #### VD25H #### [employer] [address] [place] [address] Glucose,Bedsideon 08-21-2018 Glucose mass conc 124 mg/dL High 70-100 [facility] Comment on above: Result Comment: Test performed by glucose meter. Results may be 10%-15% lower than serum/plasma values. (CLIA ID [id number]) Performed By: #### H EMDF, PT, BMP3M, PHOS3, MG3, CK3 #### [facility] [address] [place] [address] #### VD25H #### [employer] [facility] [address] [place] [address] Glucose mass conc 135 mg/dL High 70-100 [facility] Comment on above: Result Comment: Test performed by glucose meter. Results may be 10%-15% lower than serum/plasma values. (CLIA ID [id number]) Performed By: #### H EMDF, PT, BMP3M, PHOS3, MG3, CK3 #### [place] [address] [place] #### VD25H #### [facility] [address] [place] [address] Glucose mass conc 131 mg/dL High 70-100 [facility] Comment on above: Result Comment: Test performed by glucose meter. Results may be 10%-15% lower than serum/plasma values. (CLIA ID [id number]) Performed By: #### H EMDF, PT, BMP3M, PHOS3, MG3, CK3 #### [place] [address] [facility] #### VD25H #### [facility] [address] [place] [address] Glucose mass conc 112 mg/dL High 70-100 [facility] Comment on above: Result Comment: Test performed by glucose meter. Results may be 10%-15% lower than serum/plasma values. (CLIA ID [id number]) Performed By: #### H EMDF, PT, BMP3M, PHOS3, MG3, CK3 #### [address], [place] #### VD25H #### [address] [place] [address] Basic Metabolic Panelon 04-2 Anion gap molar conc 4 Normal [facility] Comment on above: Performed By: #### H EMDF, PT, BMP3M, PHOS3, MG3, CK3 #### [place] [address] [facility] #### VD25H #### [facility] [address] [place] [address] Calcium mass conc 7.6 mg/dL Low 8.4-10.4 [facility] Comment on above: Performed By: #### H EMDF, PT, BMP3M, PHOS3, MG3, CK3 #### [address] #### VD25H #### [facility] [address] [place] [address] CO2 molar conc 36 mmol/L High 22-30 [facility] Comment on above: Performed By: #### H EMDF, PT, BMP3M, PHOS3, MG3, CK3 #### [facility] [address] [place], [place] #### VD25H #### [facility] [address] [place] [address] Glucose mass conc 121 mg/dL High 70-100 [facility] Comment on above: Performed By: #### H EMDF, PT, BMP3M, PHOS3, MG3, CK3 #### [place] [address] [place], [place] #### VD25H #### [facility] [address] [place] [address] Urea nitrogen mass conc 9 mg/dL Normal 7-20 S [facility] Comment on above: Performed By: #### H EMDF, PT, BMP3M, PHOS3, MG3, CK3 #### [place] [address] [place] #### VD25H #### [facility] [address] [place] [address] Creatinine mass conc 0.51 mg/dL Low 0.52-1.25 [facility] Comment on above: Performed By: #### H EMDF, PT, BMP3M, PHOS3, MG3, CK3 #### [place] [address] [address] [facility] [place] #### VD25H #### [facility] [address] [place] [address] GFR/1.73 sq M predicted among blacks MDRD vol rate/area (S/P/Bld) mL/min/{1.73_m2} Normal >60 [facility] Comment on above: Performed By: #### H EMDF, PT, BMP3M, PHOS3, MG3, CK3 #### [place] [address] [place] #### VD25H #### [facility] [address] [place] [address] GFR/1.73 sq M predicted among non-blacks MDRD vol rate/area (S/P/Bld) mL/min/{1.73_m2} Normal >60 [facility] Comment on above: Result Comment: Sour ce- MDRD equation with creatinine calibration to IDMS(NKDEP) eGFR not recommended for drug dose adjustment Performed By: #### H EMDF, PT, BMP3M, PHOS3, MG3, CK3 #### [place] [address] [place] [address] #### VD25H #### [facility] [address] [place] [address] Chloride molar conc 100 mmol/L Normal 98-107 [facility] Comment on above: Performed By: #### H EMDF, PT, BMP3M, PHOS3, MG3, CK3 #### [address] #### VD25H #### [facility] [address] [place] [address] Potassium molar conc 3.3 mmol/L Low 3.5-5.1 [facility] Comment on above: Performed By: #### H EMDF, PT, BMP3M, PHOS3, MG3, CK3 #### [address] [address] [place] [address] #### VD25H #### [facility] [address] [place] [address] Sodium molar conc 140 mmol/L Normal 135-145 [facility] Comment on above: Performed By: #### H EMDF, PT, BMP3M, PHOS3, MG3, CK3 #### [address] [address] #### VD25H #### [facility] [address] [place] [address] Glucose,Bedsideon 08-20-2018 Glucose mass conc 121 mg/dL High 70-100 [facility] Comment on above: Result Comment: Test performed by glucose meter. Results may be 10%-15% lower than serum/plasma values. (CLIA ID [id number]) Performed By: #### H EMDF, PT, BMP3M, PHOS3, MG3, CK3 #### [facility] [address] [place], [place] #### VD25H #### [facility] [address] [place] [address] Glucose mass conc 127 mg/dL High 70-100 [facility] Comment on above: Result Comment: Test performed by glucose meter. Results may be 10%-15% lower than serum/plasma values. (CLIA ID [id number]) Performed By: #### H EMDF, PT, BMP3M, PHOS3, MG3, CK3 #### [place] [address] [place], [place] #### VD25H #### [facility] [address] [place], [place] Hep A Abs, Totalon 9 Hep A Abs, Total Negative Normal Negative [facility] Comment on above: Result Comment: Perf ormed by [employer], [address] [place] [id number] [email or web address], Moo Lay MD - Lab. Director Performed By: #### H EMDF, PT, BMP3M, PHOS3, MG3, CK3 #### [place] [address] [place], [place] #### VD25H #### [facility] [address] [place] [address] Basic Metabolic Panelon 04-2 Anion gap molar conc 1 Normal [facility] Comment on above: Performed By: #### H EMDF, PT, BMP3M, PHOS3, MG3, CK3 #### [facility] [address] [place], [place] #### VD25H #### [facility] [address] [place] [address] Calcium mass conc 7.6 mg/dL Low 8.4-10.4 [facility] Comment on above: Performed By: #### H EMDF, PT, BMP3M, PHOS3, MG3, CK3 #### [facility] [address] [facility] #### VD25H #### [facility] [address] [place] [address] CO2 molar conc 33 mmol/L High 22-30 [facility] Comment on above: Performed By: #### H EMDF, PT, BMP3M, PHOS3, MG3, CK3 #### [place] [address] [place] #### VD25H #### [facility] [address] [place] [address] Glucose mass conc 139 mg/dL High 70-100 [facility] Comment on above: Performed By: #### H EMDF, PT, BMP3M, PHOS3, MG3, CK3 #### [address], [place] #### VD25H #### [facility] [address] [place] [address] Urea nitrogen mass conc 10 mg/dL Normal 7-20 S [facility] Comment on above: Performed By: #### H EMDF, PT, BMP3M, PHOS3, MG3, CK3 #### [address] [address] [place], [place] #### VD25H #### [facility] [address] [place] [address] Creatinine mass conc 0.57 mg/dL Normal 0.52-1.25 [facility] Comment on above: Performed By: #### H EMDF, PT, BMP3M, PHOS3, MG3, CK3 #### [address] [facility] #### VD25H #### [facility] [address] [place] [address] GFR/1.73 sq M predicted among blacks MDRD vol rate/area (S/P/Bld) mL/min/{1.73_m2} Normal >60 [facility] Comment on above: Performed By: #### H EMDF, PT, BMP3M, PHOS3, MG3, CK3 #### [address] [place] #### VD25H #### [facility] [address] [place] [address] GFR/1.73 sq M predicted among non-blacks MDRD vol rate/area (S/P/Bld) mL/min/{1.73_m2} Normal >60 [facility] Comment on above: Result Comment: Sour ce- MDRD equation with creatinine calibration to IDMS(NKDEP) eGFR not recommended for drug dose adjustment Performed By: #### H EMDF, PT, BMP3M, PHOS3, MG3, CK3 #### [address] #### VD25H #### [facility] [address] [place] [address] Potassium molar conc 3.4 mmol/L Low 3.5-5.1 [facility] Comment on above: Performed By: #### H EMDF, PT, BMP3M, PHOS3, MG3, CK3 #### [address] #### VD25H #### [facility] [address] [place] [address] Chloride molar conc 104 mmol/L Normal 98-107 [facility] Comment on above: Performed By: #### H EMDF, PT, BMP3M, PHOS3, MG3, CK3 #### [address] #### VD25H #### [facility] [address] [place] [address] Sodium molar conc 138 mmol/L Normal 135-145 [facility] Comment on above: Performed By: #### H EMDF, PT, BMP3M, PHOS3, MG3, CK3 #### [address] #### VD25H #### [facility] [address] [place] [address] CULT./ST. BACTERIAon 019 CULT./ST. BACTERIA STAIN GRAM [...] 0.12 S Vancomycin(CHRISTI) = 1 S Normal [facility] Comment on above: Order Comment: or co llected Performed By: #### H EMDF, PT, BMP3M, PHOS3, MG3, CK3 #### [place] [address] [place] #### VD25H #### [facility] [address] [place] [address] Basic Metabolic Panelon 07-31 Calcium mass conc 7.8 mg/dL Low 8.4-10.4 [facility] Comment on above: Performed By: #### H EMDF, PT, BMP3M, PHOS3, MG3, CK3 #### [place] [address] [place] #### VD25H #### [facility] [address] [place] [address] Glucose mass conc 104 mg/dL High 70-100 [facility] Comment on above: Performed By: #### H EMDF, PT, BMP3M, PHOS3, MG3, CK3 #### [place] [address] [place] #### VD25H #### [facility] [address] [place] [address] Urea nitrogen mass conc 12 mg/dL Normal 7-20 S [facility] Comment on above: Performed By: #### H EMDF, PT, BMP3M, PHOS3, MG3, CK3 #### [place] [address] [place] #### VD25H #### [facility] [address] [place] [address] Anion gap molar conc 5 Normal [facility] Comment on above: Performed By: #### H EMDF, PT, BMP3M, PHOS3, MG3, CK3 #### [place] [address] [place] #### VD25H #### [facility] [address] [place] [address] CO2 molar conc 26 mmol/L Normal 22-30 [facility] Comment on above: Performed By: #### H EMDF, PT, BMP3M, PHOS3, MG3, CK3 #### [address] [address] #### VD25H #### [facility] [address] [place] [address] Creatinine mass conc 0.61 mg/dL Normal 0.52-1.25 [facility] Comment on above: Performed By: #### H EMDF, PT, BMP3M, PHOS3, MG3, CK3 #### [address] #### VD25H #### [facility] [address] [place] [address] GFR/1.73 sq M predicted among blacks MDRD vol rate/area (S/P/Bld) mL/min/{1.73_m2} Normal >60 [facility] Comment on above: Performed By: #### H EMDF, PT, BMP3M, PHOS3, MG3, CK3 #### [address] [address] #### VD25H #### [facility] [address] [place] [address] GFR/1.73 sq M predicted among non-blacks MDRD vol rate/area (S/P/Bld) mL/min/{1.73_m2} Normal >60 [facility] Comment on above: Result Comment: Sour ce- MDRD equation with creatinine calibration to IDMS(NKDEP) eGFR not recommended for drug dose adjustment Performed By: #### H EMDF, PT, BMP3M, PHOS3, MG3, CK3 #### [address] [address] #### VD25H #### [place] [address] [place] [address] Chloride molar conc 107 mmol/L Normal 98-107 [facility] Comment on above: Performed By: #### H EMDF, PT, BMP3M, PHOS3, MG3, CK3 #### [place] [address] [place] #### VD25H #### [facility] [address] [place] [address] Potassium molar conc 3.4 mmol/L Low 3.5-5.1 [facility] Comment on above: Performed By: #### H EMDF, PT, BMP3M, PHOS3, MG3, CK3 #### [place] [address] [place] #### VD25H #### [facility] [address] [place] [address] Sodium molar conc 138 mmol/L Normal 135-145 [facility] Comment on above: Performed By: #### H EMDF, PT, BMP3M, PHOS3, MG3, CK3 #### [place] [address] [place], [place] #### VD25H #### [facility] [address] [place] [address] Glucose,Bedsideon 08-18-2018 Glucose mass conc 113 mg/dL High 70-100 [facility] Comment on above: Result Comment: Test performed by glucose meter. Results may be 10%-15% lower than serum/plasma values. (CLIA ID [id number]) Performed By: #### H EMDF, PT, BMP3M, PHOS3, MG3, CK3 #### [place] [address] [place] #### VD25H #### [facility] [address] [place] [address] Hemogram w/ Autodiffon 08-18 Erythrocyte distribution width Ratio (RBC) 14.4 % Normal 11.5-14.5 [facility] Comment on above: Performed By: #### H EMDF, PT, BMP3M, PHOS3, MG3, CK3 #### [address] [place] #### VD25H #### [facility] [address] [place] [address] Hematocrit Volume Fraction (Bld) 29.3 % Low 40.0-52.0 [facility] Comment on above: Performed By: #### H EMDF, PT, BMP3M, PHOS3, MG3, CK3 #### [address] #### VD25H #### [facility] [address] [place] [address] Hemoglobin mass conc (Bld) 9.8 g/dL Low 13.0-18.0 [facility] Comment on above: Performed By: #### H EMDF, PT, BMP3M, PHOS3, MG3, CK3 #### [address] #### VD25H #### [facility] [address] [place] [address] MCH Entitic mass (RBC) 28.0 pg Normal 26.0-34.0 [facility] Comment on above: Performed By: #### H EMDF, PT, BMP3M, PHOS3, MG3, CK3 #### [address] #### VD25H #### [facility] [address] [place] [address] MCHC mass conc (RBC) 33.4 % Normal 32.0-36.0 [facility] Comment on above: Performed By: #### H EMDF, PT, BMP3M, PHOS3, MG3, CK3 #### [address] #### VD25H #### [facility] [address] [place] [address] MCV Entitic volume (RBC) 84.1 fL Normal 80.0-98.0 [facility] Comment on above: Performed By: #### H EMDF, PT, BMP3M, PHOS3, MG3, CK3 #### [address] #### VD25H #### [facility] [address] [place] [address] Platelet mean volume Entitic volume (Bld) 7.9 fL Normal 7.4-10.4 [facility] Comment on above: Performed By: #### H EMDF, PT, BMP3M, PHOS3, MG3, CK3 #### [address] #### VD25H #### [place] [address] [place] [address] Platelets #/vol (Bld) 301 10*3/uL Normal 140-440 [facility] Comment on above: Performed By: #### H EMDF, PT, BMP3M, PHOS3, MG3, CK3 #### [address] #### VD25H #### [place] [address] [place] [address] RBC #/vol (Bld) 3.49 10*6/uL Low 4.40-5.90 [facility] Comment on above: Performed By: #### H EMDF, PT, BMP3M, PHOS3, MG3, CK3 #### [address] #### VD25H #### [place] [address] [place] [address] WBC #/vol (Bld) 8.3 10*3/uL Normal 3.6-10.7 [facility] Comment on above: Performed By: #### H EMDF, PT, BMP3M, PHOS3, MG3, CK3 #### [address] #### VD25H #### [place] [address] [place] [address] Magnesiumon 08-18-2018 Magnesium mass conc 2.0 mg/dL Normal 1.6-2.3 [facility] Comment on above: Performed By: #### H EMDF, PT, BMP3M, PHOS3, MG3, CK3 #### [address] [place] #### VD25H #### [facility] [address] [place] [address] Manual Diffon 08-18-2018 Abs Neutrophile Cnt 5.1 10*3/uL Normal 2.2-8.2 [facility] Comment on above: Performed By: #### H EMDF, PT, BMP3M, PHOS3, MG3, CK3 #### [place] [address] [place] #### VD25H #### [facility] [address] [place] [address] Bands 3 % Normal 0-3 [facility] Comment on above: Performed By: #### H EMDF, PT, BMP3M, PHOS3, MG3, CK3 #### [address] #### VD25H #### [facility] [address] [place] [address] Eosinophils #/vol (Bld) 0.2 10*3/uL Normal 0.0-0.5 [facility] Comment on above: Performed By: #### H EMDF, PT, BMP3M, PHOS3, MG3, CK3 #### [address] [place] #### VD25H #### [facility] [address] [place] [address] Eosinophils/100 WBC (Bld) 2 % Normal 1-6 [facility] Comment on above: Performed By: #### H EMDF, PT, BMP3M, PHOS3, MG3, CK3 #### [address] #### VD25H #### [facility] [address] [place] [address] Lymphocytes #/vol (Bld) 2.1 10*3/uL Normal 1.1-4.5 [facility] Comment on above: Performed By: #### H EMDF, PT, BMP3M, PHOS3, MG3, CK3 #### [place] [address] [place] #### VD25H #### [facility] [address] [place] [address] Lymphocytes/100 WBC (Bld) 25 % Normal 20-40 [facility] Comment on above: Performed By: #### H EMDF, PT, BMP3M, PHOS3, MG3, CK3 #### [facility] [address] [place] #### VD25H #### [facility] [address] [place] [address] Metamyelocytes 1 % Abnormal <1 [facility] Comment on above: Performed By: #### H EMDF, PT, BMP3M, PHOS3, MG3, CK3 #### [place] [address] [place] #### VD25H #### [facility] [address] [place] [address] Monocytes #/vol (Bld) 0.6 10*3/uL Normal 0.2-1.1 [facility] Comment on above: Performed By: #### H EMDF, PT, BMP3M, PHOS3, MG3, CK3 #### [place] [address] [place] #### VD25H #### [facility] [address] [place] [address] Monocytes/100 WBC (Bld) 7 % Normal 2-10 S [facility] Comment on above: Performed By: #### H EMDF, PT, BMP3M, PHOS3, MG3, CK3 #### [address] [place] #### VD25H #### [facility] [address] [place] [address] Myelocytes 1 % Abnormal <1 [facility] Comment on above: Performed By: #### H EMDF, PT, BMP3M, PHOS3, MG3, CK3 #### [address] #### VD25H #### [facility] [address] [place] [address] Protein mass conc 2 % Abnormal <1 [facility] Comment on above: Performed By: #### H EMDF, PT, BMP3M, PHOS3, MG3, CK3 #### [place] [address] [place] #### VD25H #### [facility] [address] [place] [address] RBC morphology finding Nom (Bld) See Prev Normal [facility] Comment on above: Performed By: #### H EMDF, PT, BMP3M, PHOS3, MG3, CK3 #### [address] [place] #### VD25H #### [facility] [address] [place] [address] Seg Neutrophils 59 % Normal 40-80 [facility] Comment on above: Performed By: #### H EMDF, PT, BMP3M, PHOS3, MG3, CK3 #### [address] [place] #### VD25H #### [facility] [address] [place] [address] Abs Baso Cnt 0.0 10*3/uL Normal 0.0-0.2 [facility] Comment on above: Performed By: #### H EMDF, PT, BMP3M, PHOS3, MG3, CK3 #### [place] [address] [place] #### VD25H #### [facility] [address] [place] [address] Basophils/100 WBC (Bld) 0 % Normal 0-2 S [facility] Comment on above: Performed By: #### H EMDF, PT, BMP3M, PHOS3, MG3, CK3 #### [place] [address] [place] #### VD25H #### [facility] [address] [place] [address] Cells counted 100 Normal [facility] Comment on above: Performed By: #### H EMDF, PT, BMP3M, PHOS3, MG3, CK3 #### [place] [address] [place] #### VD25H #### [facility] [address] [place] [address] Phosphoruson 08-18-2018 Phosphate mass conc 4.6 mg/dL High 2.5-4.5 [facility] Comment on above: Performed By: #### H EMDF, PT, BMP3M, PHOS3, MG3, CK3 #### [place] [address] [place], [place] #### VD25H #### [facility] [address] [place] [address] Basic Metabolic Panelon 07-30 Calcium mass conc 7.7 mg/dL Low 8.4-10.4 [facility] Comment on above: Performed By: #### H EMDF, PT, BMP3M, PHOS3, MG3, CK3 #### [address] #### VD25H #### [facility] [address] [place] [address] Anion gap molar conc 7 Normal [facility] Comment on above: Performed By: #### H EMDF, PT, BMP3M, PHOS3, MG3, CK3 #### [place] [address] [place], [place] #### VD25H #### [facility] [address] [place] [address] CO2 molar conc 25 mmol/L Normal 22-30 [facility] Comment on above: Performed By: #### H EMDF, PT, BMP3M, PHOS3, MG3, CK3 #### [address] #### VD25H #### [facility] [address] [place] [address] Creatinine mass conc 0.59 mg/dL Normal 0.52-1.25 [facility] Comment on above: Performed By: #### H EMDF, PT, BMP3M, PHOS3, MG3, CK3 #### [facility] [address] [place], [place] #### VD25H #### [facility] [address] [place] [address] GFR/1.73 sq M predicted among blacks MDRD vol rate/area (S/P/Bld) mL/min/{1.73_m2} Normal >60 [facility] Comment on above: Performed By: #### H EMDF, PT, BMP3M, PHOS3, MG3, CK3 #### [address] #### VD25H #### [facility] [address] [place] [address] GFR/1.73 sq M predicted among non-blacks MDRD vol rate/area (S/P/Bld) mL/min/{1.73_m2} Normal >60 [facility] Comment on above: Result Comment: Sour ce- MDRD equation with creatinine calibration to IDMS(NKDEP) eGFR not recommended for drug dose adjustment Performed By: #### H EMDF, PT, BMP3M, PHOS3, MG3, CK3 #### [address] #### VD25H #### [facility] [address] [place] [address] Glucose mass conc 116 mg/dL High 70-100 [facility] Comment on above: Performed By: #### H EMDF, PT, BMP3M, PHOS3, MG3, CK3 #### [address] #### VD25H #### [facility] [address] [place] [address] Urea nitrogen mass conc 12 mg/dL Normal 7-20 S [facility] Comment on above: Performed By: #### H EMDF, PT, BMP3M, PHOS3, MG3, CK3 #### [facility] [address] [place] #### VD25H #### [facility] [address] [place] [address] Potassium molar conc 3.2 mmol/L Low 3.5-5.1 [facility] Comment on above: Performed By: #### H EMDF, PT, BMP3M, PHOS3, MG3, CK3 #### [facility] [address] [place] #### VD25H #### [facility] [address] [place] [address] Sodium molar conc 138 mmol/L Normal 135-145 [facility] Comment on above: Performed By: #### H EMDF, PT, BMP3M, PHOS3, MG3, CK3 #### [facility] [address] [place] #### VD25H #### [facility] [address] [place] [address] Chloride molar conc 106 mmol/L Normal 98-107 [facility] Comment on above: Performed By: #### H EMDF, PT, BMP3M, PHOS3, MG3, CK3 #### [facility] [address] [place] [address] #### VD25H #### [facility] [address] [place] [address] CR Chest Portableon 08-18-19 CR Chest Portable Patient Name: KATHYA HOOPER Diagnostic Radiology Exam Date/Time 08/17/2018 17:54:46 EDT Exam CR Chest Portable Ordering Physician SALO DAVIS Accession Number [id number] CPT4 Codes 31417 () Reason For Exam line placement Report [...] and Time: 08/17/2018 6:05 Normal [facility] CR Chest Portable Patient Name: KATHYA HOOPER Diagnostic Radiology Exam Date/Time 08/17/2018 06:11:03 EDT Exam CR Chest Portable Ordering Physician ETIENNE VELÁSQUEZ TIMOTHY P Accession Number [id number] CPT4 Codes 66182 () Reason For Exam follow left pleural [...] and Time: 08/17/2018 7:16 Normal [facility] Ferritinon 08-17-2018 Ferritin mass conc 1100 ng/mL High 18-464 [facility] Comment on above: Performed By: #### H EMDF, PT, BMP3M, PHOS3, MG3, CK3 #### [facility] [address] [place], [place] #### VD25H #### [facility] [address] [place] [address] Folateon 08-17-2018 Folate 15.1 ng/mL Normal 2.8-20.0 [facility] Comment on above: Performed By: #### H EMDF, PT, BMP3M, PHOS3, MG3, CK3 #### [facility] [address] [place], [place] #### VD25H #### [facility] [address] [place] [address] Glucose,Bedsideon 08-17-2018 Glucose mass conc 133 mg/dL High 70-100 [facility] Comment on above: Result Comment: Test performed by glucose meter. Results may be 10%-15% lower than serum/plasma values. (CLIA ID [id number]) Performed By: #### H EMDF, PT, BMP3M, PHOS3, MG3, CK3 #### [address] #### VD25H #### [facility] [address] [place] [address] Hemoglobin A1Con 08-17-2018 Hemoglobin A1c/Hemoglobin.total mass fraction (Bld) 117 mg/dL Normal [facility] Comment on above: Performed By: #### H EMDF, PT, BMP3M, PHOS3, MG3, CK3 #### [address] #### VD25H #### [facility] [address] [place] [address] Hemoglobin A1c/Hemoglobin.total mass fraction (Bld) 5.7 % Normal 4.0-5.7 [facility] Comment on above: Result Comment: --Hg bA1C levels may not be accurate in patients who have renal disease, received recent blood transfusions, are anemic, or who have dyshemoglobinemia. Performed By: #### H EMDF, PT, BMP3M, PHOS3, MG3, CK3 #### [address] [place], [place] #### VD25H #### [facility] [address] [place] [address] Hemogram w/ Autodiffon 08-17 Erythrocyte distribution width Ratio (RBC) 14.3 % Normal 11.5-14.5 [facility] Comment on above: Performed By: #### H EMDF, PT, BMP3M, PHOS3, MG3, CK3 #### [address] [place], [place] #### VD25H #### [facility] [address] [place] [address] Hematocrit Volume Fraction (Bld) 29.1 % Low 40.0-52.0 [facility] Comment on above: Performed By: #### H EMDF, PT, BMP3M, PHOS3, MG3, CK3 #### [address] #### VD25H #### [facility] [address] [place] [address] Hemoglobin mass conc (Bld) 9.8 g/dL Low 13.0-18.0 [facility] Comment on above: Performed By: #### H EMDF, PT, BMP3M, PHOS3, MG3, CK3 #### [address] #### VD25H #### [facility] [address] [place] [address] MCH Entitic mass (RBC) 28.4 pg Normal 26.0-34.0 [facility] Comment on above: Performed By: #### H EMDF, PT, BMP3M, PHOS3, MG3, CK3 #### [address] #### VD25H #### [facility] [address] [place] [address] MCHC mass conc (RBC) 33.5 % Normal 32.0-36.0 [facility] Comment on above: Performed By: #### H EMDF, PT, BMP3M, PHOS3, MG3, CK3 #### [address] #### VD25H #### [facility] [address] [place] [address] MCV Entitic volume (RBC) 84.7 fL Normal 80.0-98.0 [facility] Comment on above: Performed By: #### H EMDF, PT, BMP3M, PHOS3, MG3, CK3 #### [address] #### VD25H #### [facility] [address] [place] [address] Platelet mean volume Entitic volume (Bld) 8.1 fL Normal 7.4-10.4 [facility] Comment on above: Performed By: #### H EMDF, PT, BMP3M, PHOS3, MG3, CK3 #### [address] #### VD25H #### [place] [address] [place] [address] Platelets #/vol (Bld) 281 10*3/uL Normal 140-440 [facility] Comment on above: Performed By: #### H EMDF, PT, BMP3M, PHOS3, MG3, CK3 #### [address] #### VD25H #### [place] [address] [place] [address] RBC #/vol (Bld) 3.44 10*6/uL Low 4.40-5.90 [facility] Comment on above: Performed By: #### H EMDF, PT, BMP3M, PHOS3, MG3, CK3 #### [address] #### VD25H #### [place] [address] [place] [address] WBC #/vol (Bld) 8.3 10*3/uL Normal 3.6-10.7 [facility] Comment on above: Performed By: #### H EMDF, PT, BMP3M, PHOS3, MG3, CK3 #### [facility] [address], [place] #### VD25H #### [facility] [address] [place] [address] Hep B Surface Abon 9 Hep B Surface Ab < 8.0 Normal [facility] Comment on above: Result Comment: Inte rpretation: <8.0 Non-Reactive 8.0-11.9 Equivocal >= 12.0 Ab Detected Performed By: #### H EMDF, PT, BMP3M, PHOS3, MG3, CK3 #### [address] #### VD25H #### [facility] [address] [place] [address] Hep B Surface Agon 9 Hep B Surface Ag NOT DETECTED Normal Not-Detected [facility] Comment on above: Performed By: #### H EMDF, PT, BMP3M, PHOS3, MG3, CK3 #### [facility] [address] [place], [place] #### VD25H #### [facility] [address] [place] [address] Hep C Antibodyon 08-17-2018 Hep C Antibody NOT DETECTED Normal Not-Detected [facility] Comment on above: Result Comment: Bharti ents with DETECTED Hepatitis C Ab results should have a new specimen submitted for supplemental testing with a Hepatitis C Quantitative RNA assay (viral load), if clinically indicated. Performed By: #### H EMDF, PT, BMP3M, PHOS3, MG3, CK3 #### [facility] [address] [place], [place] #### VD25H #### [facility] [address] [place] [address] Hepatic Functionon 9 ALP enzyme act/vol 116 U/L Normal 38-126 [facility] Comment on above: Performed By: #### H EMDF, PT, BMP3M, PHOS3, MG3, CK3 #### [address] [place] #### VD25H #### [facility] [address] [place] [address] ALT enzyme act/vol 370 U/L High [facility] Comment on above: Performed By: #### H EMDF, PT, BMP3M, PHOS3, MG3, CK3 #### [address] [place] #### VD25H #### [facility] [address] [place] [address] AST enzyme act/vol 150 U/L High [facility] Comment on above: Performed By: #### H EMDF, PT, BMP3M, PHOS3, MG3, CK3 #### [address] #### VD25H #### [facility] [address] [place] [address] Bilirubin mass conc 0.7 mg/dL Normal 0.2-1.3 [facility] Comment on above: Performed By: #### H EMDF, PT, BMP3M, PHOS3, MG3, CK3 #### [address] #### VD25H #### [facility] [address] [place] [address] Bilirubin.direct mass conc 0.0 mg/dL Normal 0.0-0.3 [facility] Comment on above: Performed By: #### H EMDF, PT, BMP3M, PHOS3, MG3, CK3 #### [address] #### VD25H #### [facility] [address] [place] [address] Protein mass conc 5.4 g/dL Low 6.3-8.2 [facility] Comment on above: Performed By: #### H EMDF, PT, BMP3M, PHOS3, MG3, CK3 #### [facility] [address] [place] #### VD25H #### [facility] [address] [place] [address] Albumin mass conc 2.5 g/dL Low 3.5-5.0 [facility] Comment on above: Performed By: #### H EMDF, PT, BMP3M, PHOS3, MG3, CK3 #### [facility] [address] [place] #### VD25H #### [facility] [address] [place] [address] Iron AND TIBCon 08-17-2018 Saturation 14 % Low 15-50 [facility] Comment on above: Performed By: #### H EMDF, PT, BMP3M, PHOS3, MG3, CK3 #### [place] [address] [place] #### VD25H #### [facility] [address] [place] [address] Total Iron Binding Cap. 166 ug/dL Low 261-497 [facility] Comment on above: Performed By: #### H EMDF, PT, BMP3M, PHOS3, MG3, CK3 #### [facility] [address] [place] #### VD25H #### [facility] [address] [place] [address] Iron, Total 23 ug/dL Low 49-181 [facility] Comment on above: Performed By: #### H EMDF, PT, BMP3M, PHOS3, MG3, CK3 #### [place] [address] [place] #### VD25H #### [facility] [address] [place] [address] Magnesiumon 08-17-2018 Magnesium mass conc 2.0 mg/dL Normal 1.6-2.3 [facility] Comment on above: Performed By: #### H EMDF, PT, BMP3M, PHOS3, MG3, CK3 #### [place] [address] [place] #### VD25H #### [facility] [address] [place] [address] Manual Diffon 08-17-2018 Abs Baso Cnt 0.1 10*3/uL Normal 0.0-0.2 [facility] Comment on above: Performed By: #### H EMDF, PT, BMP3M, PHOS3, MG3, CK3 #### [place] [address] [place] #### VD25H #### [place] [address] [place] [address] Abs Neutrophile Cnt 5.6 10*3/uL Normal 2.2-8.2 [facility] Comment on above: Performed By: #### H EMDF, PT, BMP3M, PHOS3, MG3, CK3 #### [address] #### VD25H #### [place] [address] [place] [address] Anisocytosis Ql (Bld) Slight Normal [facility] Comment on above: Performed By: #### H EMDF, PT, BMP3M, PHOS3, MG3, CK3 #### [address] #### VD25H #### [facility] [address] [place] [address] Bands 9 % High 0-3 [facility] Comment on above: Performed By: #### H EMDF, PT, BMP3M, PHOS3, MG3, CK3 #### [address] #### VD25H #### [place] [address] [place] [address] Basophils/100 WBC (Bld) 1 % Normal 0-2 S [facility] Comment on above: Performed By: #### H EMDF, PT, BMP3M, PHOS3, MG3, CK3 #### [address] [place] #### VD25H #### [facility] [address] [place] [address] Eosinophils #/vol (Bld) 0.2 10*3/uL Normal 0.0-0.5 [facility] Comment on above: Performed By: #### H EMDF, PT, BMP3M, PHOS3, MG3, CK3 #### [facility] [address] [place] #### VD25H #### [facility] [address] [place] [address] Eosinophils/100 WBC (Bld) 3 % Normal 1-6 [facility] Comment on above: Performed By: #### H EMDF, PT, BMP3M, PHOS3, MG3, CK3 #### [address] #### VD25H #### [facility] [address] [place] [address] Lymphocytes #/vol (Bld) 1.5 10*3/uL Normal 1.1-4.5 [facility] Comment on above: Performed By: #### H EMDF, PT, BMP3M, PHOS3, MG3, CK3 #### [address] [place] #### VD25H #### [facility] [address] [place] [address] Lymphocytes/100 WBC (Bld) 18 % Low 20-40 [facility] Comment on above: Performed By: #### H EMDF, PT, BMP3M, PHOS3, MG3, CK3 #### [address] #### VD25H #### [facility] [address] [place] [address] Monocytes #/vol (Bld) 0.4 10*3/uL Normal 0.2-1.1 [facility] Comment on above: Performed By: #### H EMDF, PT, BMP3M, PHOS3, MG3, CK3 #### [facility] [address] [facility] #### VD25H #### [facility] [address] [place] [address] Monocytes/100 WBC (Bld) 5 % Normal 2-10 S [facility] Comment on above: Performed By: #### H EMDF, PT, BMP3M, PHOS3, MG3, CK3 #### [facility] [address] [facility] #### VD25H #### [facility] [address] [place] [address] Myelocytes 5 % Abnormal <1 [facility] Comment on above: Performed By: #### H EMDF, PT, BMP3M, PHOS3, MG3, CK3 #### [place] [address] [place] #### VD25H #### [facility] [address] [place] [address] Polychromasia Slight Normal [facility] Comment on above: Performed By: #### H EMDF, PT, BMP3M, PHOS3, MG3, CK3 #### [place] [address] [facility] #### VD25H #### [facility] [address] [place] [address] RBC morphology finding Nom (Bld) ABNORMAL Normal [facility] Comment on above: Performed By: #### H EMDF, PT, BMP3M, PHOS3, MG3, CK3 #### [place] [address] [facility] #### VD25H #### [facility] [address] [place] [address] Seg Neutrophils 59 % Normal 40-80 [facility] Comment on above: Performed By: #### H EMDF, PT, BMP3M, PHOS3, MG3, CK3 #### [facility] [address] [facility] #### VD25H #### [facility] [address] [place] [address] Toxic Granulation Slight Normal [facility] Comment on above: Performed By: #### H EMDF, PT, BMP3M, PHOS3, MG3, CK3 #### [facility] [address] [facility] [address] #### VD25H #### [facility] [address] [place] [address] Cells counted 100 Normal [facility] Comment on above: Performed By: #### H EMDF, PT, BMP3M, PHOS3, MG3, CK3 #### [place] [address] [facility] [place] #### VD25H #### [facility] [address] [place] [address] Phosphoruson 08-17-2018 Phosphate mass conc 3.9 mg/dL Normal 2.5-4.5 [facility] Comment on above: Performed By: #### H EMDF, PT, BMP3M, PHOS3, MG3, CK3 #### [place] [address] [facility] #### VD25H #### [facility] [address] [place] [address] Triglycerideon 08-17-2018 Triglyceride mass conc 104 mg/dL Normal <150 [facility] Comment on above: Performed By: #### H EMDF, PT, BMP3M, PHOS3, MG3, CK3 #### [place] [address] [facility] #### VD25H #### [facility] [address] [place] [address] Vitamin B12on 08-17-2018 Cobalamin (Vitamin B12) mass conc 615 pg/mL Normal 239-931 [facility] Comment on above: Performed By: #### H EMDF, PT, BMP3M, PHOS3, MG3, CK3 #### [place] [address] [facility] [place] #### VD25H #### [facility] [address] [place] [address] Albumin, Serumon 08-16-2018 Albumin mass conc 2.6 g/dL Low 3.5-5.0 [facility] Comment on above: Performed By: #### H EMDF, PT, BMP3M, PHOS3, MG3, CK3 #### [facility] [address] [facility] [place] [address] #### VD25H #### [facility] [address] [place] [address] CR Abdomen APon 08-16-2018 CR Abdomen AP Patient Name: KATHYA HOOPER Diagnostic Radiology Exam Date/Time 08/16/2018 10:17:24 EDT Exam CR Abdomen AP Ordering Physician OJEY CABALLERO Accession Number [id number] CPT4 Codes 48375 () Reason For Exam dobhoff placement Report [...] and Time: 08/16/2018 12:33 Normal [facility] CR Chest Portableon 08-17-19 19 CR Chest Portable Patient Name: KATHYA HOOPER Diagnostic Radiology Exam Date/Time 08/16/2018 10:17:24 EDT Exam CR Chest Portable Ordering Physician JOEY CABALLERO Accession Number [id number] CPT4 Codes 78323 () Reason For Exam dyspnea Report PORTABLE [...] and Time: 08/16/2018 12:31 Normal [facility] Comp Panel with Mg Reflexon 08-16-2018 Calcium mass conc 7.8 mg/dL Low 8.4-10.4 [facility] Comment on above: Performed By: #### H EMDF, PT, BMP3M, PHOS3, MG3, CK3 #### [facility] [address] [place], [place] #### VD25H #### [facility] [address] [place] [address] Glucose mass conc 114 mg/dL High 70-100 [facility] Comment on above: Performed By: #### H EMDF, PT, BMP3M, PHOS3, MG3, CK3 #### [facility] [address] [place] [address] #### VD25H #### [facility] [address] [place] [address] ALP enzyme act/vol 114 U/L Normal 38-126 [facility] Comment on above: Performed By: #### H EMDF, PT, BMP3M, PHOS3, MG3, CK3 #### [facility] [address], [place] #### VD25H #### [facility] [address] [place] [address] ALT enzyme act/vol 539 U/L High 13 [facility] Comment on above: Performed By: #### H EMDF, PT, BMP3M, PHOS3, MG3, CK3 #### [facility] [address] [place] #### VD25H #### [facility] [address] [place] [address] Anion gap molar conc 4 Normal [facility] Comment on above: Performed By: #### H EMDF, PT, BMP3M, PHOS3, MG3, CK3 #### [facility] [address] [place] #### VD25H #### [facility] [address] [place] [address] AST enzyme act/vol 460 U/L High 15 [facility] Comment on above: Performed By: #### H EMDF, PT, BMP3M, PHOS3, MG3, CK3 #### [facility] [address] [place] #### VD25H #### [facility] [address] [place] [address] Bilirubin mass conc 0.7 mg/dL Normal 0.2-1.3 [facility] Comment on above: Performed By: #### H EMDF, PT, BMP3M, PHOS3, MG3, CK3 #### [facility] [address] [facility] #### VD25H #### [facility] [address] [place] [address] CO2 molar conc 25 mmol/L Normal 22-30 [facility] Comment on above: Performed By: #### H EMDF, PT, BMP3M, PHOS3, MG3, CK3 #### [facility] [address] [place] #### VD25H #### [facility] [address] [place] [address] Creatinine mass conc 0.71 mg/dL Normal 0.52-1.25 [facility] Comment on above: Performed By: #### H EMDF, PT, BMP3M, PHOS3, MG3, CK3 #### [address] #### VD25H #### [facility] [address] [place] [address] GFR/1.73 sq M predicted among blacks MDRD vol rate/area (S/P/Bld) mL/min/{1.73_m2} Normal >60 [facility] Comment on above: Performed By: #### H EMDF, PT, BMP3M, PHOS3, MG3, CK3 #### [address] #### VD25H #### [facility] [address] [place] [address] GFR/1.73 sq M predicted among non-blacks MDRD vol rate/area (S/P/Bld) mL/min/{1.73_m2} Normal >60 [facility] Comment on above: Result Comment: Sour ce- MDRD equation with creatinine calibration to IDMS(NKDEP) eGFR not recommended for drug dose adjustment Performed By: #### H EMDF, PT, BMP3M, PHOS3, MG3, CK3 #### [address] #### VD25H #### [facility] [address] [place] [address] Protein mass conc 5.1 g/dL Low 6.3-8.2 [facility] Comment on above: Performed By: #### H EMDF, PT, BMP3M, PHOS3, MG3, CK3 #### [address] #### VD25H #### [facility] [address] [place] [address] Urea nitrogen mass conc 22 mg/dL High 7-20 S [facility] Comment on above: Performed By: #### H EMDF, PT, BMP3M, PHOS3, MG3, CK3 #### [address] [place] #### VD25H #### [facility] [address] [place] [address] Chloride molar conc 102 mmol/L Normal 98-107 [facility] Comment on above: Performed By: #### H EMDF, PT, BMP3M, PHOS3, MG3, CK3 #### [place] [address] [place] #### VD25H #### [facility] [address] [place] [address] Potassium molar conc 3.1 mmol/L Low 3.5-5.1 [facility] Comment on above: Performed By: #### H EMDF, PT, BMP3M, PHOS3, MG3, CK3 #### [address] #### VD25H #### [facility] [address] [place] [address] Sodium molar conc 131 mmol/L Low 135-145 [facility] Comment on above: Performed By: #### H EMDF, PT, BMP3M, PHOS3, MG3, CK3 #### [address] #### VD25H #### [facility] [address] [place] [address] Albumin mass conc 2.4 g/dL Low 3.5-5.0 [facility] Comment on above: Performed By: #### H EMDF, PT, BMP3M, PHOS3, MG3, CK3 #### [address] #### VD25H #### [facility] [address] [place] [address] Glucose,Bedsideon 08-16-2018 Glucose mass conc 100 mg/dL Normal 70-100 [facility] Comment on above: Result Comment: Test performed by glucose meter. Results may be 10%-15% lower than serum/plasma values. (CLIA ID [id number]) Performed By: #### H EMDF, PT, BMP3M, PHOS3, MG3, CK3 #### [facility] [address] [place] [address] #### VD25H #### [employer] [facility] [address] [place] [address] Glucose mass conc 98 mg/dL Normal 70-100 [facility] Comment on above: Result Comment: Test performed by glucose meter. Results may be 10%-15% lower than serum/plasma values. (CLIA ID [id number]) Performed By: #### H EMDF, PT, BMP3M, PHOS3, MG3, CK3 #### [employer] [facility] [address] [place] [address] #### VD25H #### [employer] [facility] [address] [place] [address] Glucose mass conc 110 mg/dL High 70-100 [facility] Comment on above: Result Comment: Test performed by glucose meter. Results may be 10%-15% lower than serum/plasma values. (CLIA ID [id number]) Performed By: #### H EMDF, PT, BMP3M, PHOS3, MG3, CK3 #### [employer] [facility] [address] [place] [id number] #### VD25H #### [employer] [facility] [address] [place] [address] Glucose mass conc 113 mg/dL High 70-100 [facility] Comment on above: Result Comment: Test performed by glucose meter. Results may be 10%-15% lower than serum/plasma values. (CLIA ID [id number]) Performed By: #### H EMDF, PT, BMP3M, PHOS3, MG3, CK3 #### [facility] [employer] [facility] [address] [place] [address] #### VD25H #### [employer] [facility] [address] [place] [address] Glucose mass conc 126 mg/dL High 70-100 [facility] Comment on above: Result Comment: Test performed by glucose meter. Results may be 10%-15% lower than serum/plasma values. (CLIA ID [id number]) Performed By: #### H EMDF, PT, BMP3M, PHOS3, MG3, CK3 #### [facility] [address] [place], [place] #### VD25H #### [facility] [address] [place] [address] Hemogram w/ Autodiffon 08-16 Abs Baso Cnt 0.0 10*3/uL Normal 0.0-0.2 [facility] Comment on above: Performed By: #### H EMDF, PT, BMP3M, PHOS3, MG3, CK3 #### [address] #### VD25H #### [facility] [address] [place] [address] Abs Neutrophile Cnt 7.7 10*3/uL High 1.8-7.0 [facility] Comment on above: Performed By: #### H EMDF, PT, BMP3M, PHOS3, MG3, CK3 #### [address] #### VD25H #### [facility] [address] [place] [address] Basophils/100 WBC (Bld) 0.5 % Normal 0.0-2.0 [facility] Comment on above: Performed By: #### H EMDF, PT, BMP3M, PHOS3, MG3, CK3 #### [address] #### VD25H #### [facility] [address] [facility] [place] [address] Eosinophils #/vol (Bld) 0.1 10*3/uL Normal 0.0-0.5 [facility] Comment on above: Performed By: #### H EMDF, PT, BMP3M, PHOS3, MG3, CK3 #### [place] [address] [place] #### VD25H #### [facility] [address] [place] [address] Eosinophils/100 WBC (Bld) 1.5 % Normal 1.0-6.0 [facility] Comment on above: Performed By: #### H EMDF, PT, BMP3M, PHOS3, MG3, CK3 #### [place] [address] [place] #### VD25H #### [facility] [address] [place] [address] Erythrocyte distribution width Ratio (RBC) 14.4 % Normal 11.5-14.5 [facility] Comment on above: Performed By: #### H EMDF, PT, BMP3M, PHOS3, MG3, CK3 #### [address] #### VD25H #### [facility] [address] [place] [address] Granulocytes/100 WBC (Bld) 79.7 % Normal 40.0-80.0 [facility] Comment on above: Performed By: #### H EMDF, PT, BMP3M, PHOS3, MG3, CK3 #### [address] #### VD25H #### [facility] [address] [place] [address] Hematocrit Volume Fraction (Bld) 27.1 % Low 40.0-52.0 [facility] Comment on above: Performed By: #### H EMDF, PT, BMP3M, PHOS3, MG3, CK3 #### [address] #### VD25H #### [facility] [address] [place] [address] Hemoglobin mass conc (Bld) 9.2 g/dL Low 13.0-18.0 [facility] Comment on above: Performed By: #### H EMDF, PT, BMP3M, PHOS3, MG3, CK3 #### [address] [place] #### VD25H #### [facility] [address] [place] [address] Lymphocytes #/vol (Bld) 1.0 10*3/uL Normal 1.0-4.3 [facility] Comment on above: Performed By: #### H EMDF, PT, BMP3M, PHOS3, MG3, CK3 #### [address] #### VD25H #### [facility] [address] [place] [address] Lymphocytes/100 WBC (Bld) 10.0 % Low 20.0-40.0 [facility] Comment on above: Performed By: #### H EMDF, PT, BMP3M, PHOS3, MG3, CK3 #### [address] #### VD25H #### [facility] [address] [place] [address] MCH Entitic mass (RBC) 28.5 pg Normal 26.0-34.0 [facility] Comment on above: Performed By: #### H EMDF, PT, BMP3M, PHOS3, MG3, CK3 #### [address] #### VD25H #### [facility] [address] [place] [address] MCHC mass conc (RBC) 33.8 % Normal 32.0-36.0 [facility] Comment on above: Performed By: #### H EMDF, PT, BMP3M, PHOS3, MG3, CK3 #### [address] #### VD25H #### [facility] [address] [facility] [place] [address] MCV Entitic volume (RBC) 84.4 fL Normal 80.0-98.0 [facility] Comment on above: Performed By: #### H EMDF, PT, BMP3M, PHOS3, MG3, CK3 #### [address] [place] #### VD25H #### [facility] [address] [place] [address] Monocytes #/vol (Bld) 0.8 10*3/uL Normal 0.0-0.8 [facility] Comment on above: Performed By: #### H EMDF, PT, BMP3M, PHOS3, MG3, CK3 #### [address] #### VD25H #### [facility] [address] [place] [address] Monocytes/100 WBC (Bld) 8.3 % Normal 2.0-10.0 [facility] Comment on above: Performed By: #### H EMDF, PT, BMP3M, PHOS3, MG3, CK3 #### [address] #### VD25H #### [facility] [address] [place] [address] Platelet mean volume Entitic volume (Bld) 8.4 fL Normal 7.4-10.4 [facility] Comment on above: Performed By: #### H EMDF, PT, BMP3M, PHOS3, MG3, CK3 #### [address] #### VD25H #### [facility] [address] [place] [address] Platelets #/vol (Bld) 245 10*3/uL Normal 140-440 [facility] Comment on above: Performed By: #### H EMDF, PT, BMP3M, PHOS3, MG3, CK3 #### [address] #### VD25H #### [facility] [address] [place] [address] RBC #/vol (Bld) 3.21 10*6/uL Low 4.40-5.90 [facility] Comment on above: Performed By: #### H EMDF, PT, BMP3M, PHOS3, MG3, CK3 #### [facility] [address] [place], [place] #### VD25H #### [facility] [address] [place] [address] WBC #/vol (Bld) 9.7 10*3/uL Normal 3.6-10.7 [facility] Comment on above: Performed By: #### H EMDF, PT, BMP3M, PHOS3, MG3, CK3 #### [address] #### VD25H #### [facility] [address] [place] [address] Magnesiumon 08-16-2018 Magnesium mass conc 2.1 mg/dL Normal 1.6-2.3 [facility] Comment on above: Performed By: #### H EMDF, PT, BMP3M, PHOS3, MG3, CK3 #### [address] #### VD25H #### [facility] [address] [place] [address] Phosphoruson 08-16-2018 Phosphate mass conc 4.4 mg/dL Normal 2.5-4.5 [facility] Comment on above: Performed By: #### H EMDF, PT, BMP3M, PHOS3, MG3, CK3 #### [address] #### VD25H #### [facility] [address] [place] [address] Potassiumon 08-16-2018 Potassium molar conc 3.5 mmol/L Normal 3.5-5.1 [facility] Comment on above: Performed By: #### H EMDF, PT, BMP3M, PHOS3, MG3, CK3 #### [address] #### VD25H #### [place] [address] [place] [address] Procalcitoninon 08-16-2018 Protein mass conc 3.10 ng/mL Abnormal <0.10 [facility] Comment on above: Performed By: #### H EMDF, PT, BMP3M, PHOS3, MG3, CK3 #### [address] #### VD25H #### [address] [place] [place] [address] Prothrombin Timeon 9 INR Coag RelTime (PPP) 1.1 Normal 0.9-1.1 [facility] Comment on above: Result Comment: Yefri mmended [...] EMDF, PT, BMP3M, PHOS3, MG3, CK3 #### [address] #### VD25H #### [address] [place] [address] Prothrombin time (PT) Coag time (PPP) 11.8 s Normal 9.0-12.0 [facility] Comment on above: Result Comment: . Performed By: #### H EMDF, PT, BMP3M, PHOS3, MG3, CK3 #### [address] #### VD25H #### [address] [place] [address] US Abdomen Limitedon 019 US Abdomen Limited Patient Name: KATHYA HOOPER Ultrasound Exam Date/Time 08/16/2018 19:12:00 EDT Exam US Abdomen Limited Ordering Physician [id number] JOEY VILLAGRAN Accession Number [id number] CPT4 Codes 57453 () Reason For Exam elevated transaminases Report [...] Dictated: 08/16/2018 7:26 pm Dictating Physician: MD IRIS, ROSHAN [place] Signed Date and Time: 08/16/2018 7:29 pm Signed by: MD SIMMONS KERISTEN L Transcribed Date and Time: 08/16/2018 7:26 Normal [facility] Glucose,Bedsideon 08-15-2018 Glucose mass conc 98 mg/dL Normal 70-100 [facility] Comment on above: Result Comment: Test performed by glucose meter. Results may be 10%-15% lower than serum/plasma values. (CLIA ID [id number]) Performed By: #### H EMDF, PT, BMP3M, PHOS3, MG3, CK3 #### [facility] [address] [place] [address] #### VD25H #### [facility] [address] [place] [address] Procalcitoninon 08-15-2018 Interpretation See Below Normal [facility] Comment on above: Result Comment: PCT <0.50 = Low risk of severe sepsis and/or septic shock. PCT >2.00 = High risk of severe sepsis and/or septic shock. Performed By: #### H EMDF, PT, BMP3M, PHOS3, MG3, CK3 #### [facility] [address] [place] #### VD25H #### [facility] [address] [place] CULTURE FUNGUSon 08-13-2018 CULTURE FUNGUS CULTURE FUNGUS --> Status: F No fungus isolated after 21 days. Normal [facility] Comment on above: Order Comment: Speci men Source Comment:Body Fluid Performed By: #### H EMDF, PT, BMP3M, PHOS3, MG3, CK3 #### [address] #### VD25H #### [facility] [address] [place] [address] Hemogram w/ Autodiffon 08-01 Abs Baso Cnt 0.2 10*3/uL Normal 0.0-0.2 [facility] Comment on above: Performed By: #### H EMDF, PT, BMP3M, PHOS3, MG3, CK3 #### [address] #### VD25H #### [facility] [address] [facility] [place] Abs Neutrophile Cnt 14.3 10*3/uL High 1.8-7.0 [facility] Comment on above: Performed By: #### H EMDF, PT, BMP3M, PHOS3, MG3, CK3 #### [address] #### VD25H #### [facility] [address] [facility] [place] Basophils/100 WBC (Bld) 1.0 % Normal 0.0-2.0 [facility] Comment on above: Performed By: #### H EMDF, PT, BMP3M, PHOS3, MG3, CK3 #### [place] [address] [place], [place] #### VD25H #### [facility] [address] [place] [address] Eosinophils #/vol (Bld) 0.4 10*3/uL Normal 0.0-0.5 [facility] Comment on above: Performed By: #### H EMDF, PT, BMP3M, PHOS3, MG3, CK3 #### [address] [place] #### VD25H #### [facility] [address] [place] [address] Eosinophils/100 WBC (Bld) 2.3 % Normal 1.0-6.0 [facility] Comment on above: Performed By: #### H EMDF, PT, BMP3M, PHOS3, MG3, CK3 #### [address] #### VD25H #### [facility] [address] [place] [address] Erythrocyte distribution width Ratio (RBC) 13.7 % Normal 11.5-14.5 [facility] Comment on above: Performed By: #### H EMDF, PT, BMP3M, PHOS3, MG3, CK3 #### [address] #### VD25H #### [facility] [address] [place] [address] Granulocytes/100 WBC (Bld) 82.1 % High 40.0-80.0 [facility] Comment on above: Performed By: #### H EMDF, PT, BMP3M, PHOS3, MG3, CK3 #### [address] #### VD25H #### [facility] [address] [place] [address] Hematocrit Volume Fraction (Bld) 31.2 % Low 40.0-52.0 [facility] Comment on above: Performed By: #### H EMDF, PT, BMP3M, PHOS3, MG3, CK3 #### [place] [address] [place] #### VD25H #### [facility] [address] [place] [address] Hemoglobin mass conc (Bld) 10.5 g/dL Low 13.0-18.0 [facility] Comment on above: Performed By: #### H EMDF, PT, BMP3M, PHOS3, MG3, CK3 #### [place] [address] [place] #### VD25H #### [facility] [address] [place] [address] Lymphocytes #/vol (Bld) 1.6 10*3/uL Normal 1.0-4.3 [facility] Comment on above: Performed By: #### H EMDF, PT, BMP3M, PHOS3, MG3, CK3 #### [address] #### VD25H #### [facility] [address] [place] [address] Lymphocytes/100 WBC (Bld) 9.1 % Low 20.0-40.0 [facility] Comment on above: Performed By: #### H EMDF, PT, BMP3M, PHOS3, MG3, CK3 #### [address] #### VD25H #### [facility] [address] [place] [address] MCH Entitic mass (RBC) 28.9 pg Normal 26.0-34.0 [facility] Comment on above: Performed By: #### H EMDF, PT, BMP3M, PHOS3, MG3, CK3 #### [address] #### VD25H #### [facility] [address] [place] [address] MCHC mass conc (RBC) 33.7 % Normal 32.0-36.0 [facility] Comment on above: Performed By: #### H EMDF, PT, BMP3M, PHOS3, MG3, CK3 #### [address] [place] #### VD25H #### [facility] [address] [place] [address] MCV Entitic volume (RBC) 85.5 fL Normal 80.0-98.0 [facility] Comment on above: Performed By: #### H EMDF, PT, BMP3M, PHOS3, MG3, CK3 #### [address] [place] #### VD25H #### [facility] [address] [place] [address] Monocytes #/vol (Bld) 1.0 10*3/uL High 0.0-0.8 [facility] Comment on above: Performed By: #### H EMDF, PT, BMP3M, PHOS3, MG3, CK3 #### [address] [place] #### VD25H #### [facility] [address] [place] [address] Monocytes/100 WBC (Bld) 5.5 % Normal 2.0-10.0 S [facility] Comment on above: Performed By: #### H EMDF, PT, BMP3M, PHOS3, MG3, CK3 #### [address] #### VD25H #### [facility] [address] [place] [address] Platelet mean volume Entitic volume (Bld) 8.0 fL Normal 7.4-10.4 [facility] Comment on above: Performed By: #### H EMDF, PT, BMP3M, PHOS3, MG3, CK3 #### [address] #### VD25H #### [facility] [address] [place] [address] Platelets #/vol (Bld) 425 10*3/uL Normal 140-440 [facility] Comment on above: Performed By: #### H EMDF, PT, BMP3M, PHOS3, MG3, CK3 #### [address] #### VD25H #### [facility] [address] [place] [address] RBC #/vol (Bld) 3.65 10*6/uL Low 4.40-5.90 [facility] Comment on above: Performed By: #### H EMDF, PT, BMP3M, PHOS3, MG3, CK3 #### [address] #### VD25H #### [place] [address] [place] [address] WBC #/vol (Bld) 17.4 10*3/uL High 3.6-10.7 [facility] Comment on above: Performed By: #### H EMDF, PT, BMP3M, PHOS3, MG3, CK3 #### [address] #### VD25H #### [address] [place] [address] Basic Metabolic Panelon 04-0 Calcium mass conc 8.3 mg/dL Low 8.4-10.4 [facility] Comment on above: Performed By: #### H EMDF, PT, BMP3M, PHOS3, MG3, CK3 #### [address] #### VD25H #### [facility] [address] [place] [address] Glucose mass conc 114 mg/dL High 70-100 [facility] Comment on above: Performed By: #### H EMDF, PT, BMP3M, PHOS3, MG3, CK3 #### [address] #### VD25H #### [facility] [address] [place] [address] Anion gap molar conc 10 Normal [facility] Comment on above: Performed By: #### H EMDF, PT, BMP3M, PHOS3, MG3, CK3 #### [address] [address] #### VD25H #### [facility] [address] [place] [address] CO2 molar conc 34 mmol/L High 22-30 [facility] Comment on above: Performed By: #### H EMDF, PT, BMP3M, PHOS3, MG3, CK3 #### [address] [address] #### VD25H #### [place] [address] [place] [address] Creatinine mass conc 0.52 mg/dL Normal 0.52-1.25 [facility] Comment on above: Performed By: #### H EMDF, PT, BMP3M, PHOS3, MG3, CK3 #### [address] [address] #### VD25H #### [facility] [address] [place] [address] GFR/1.73 sq M predicted among blacks MDRD vol rate/area (S/P/Bld) mL/min/{1.73_m2} Normal >60 [facility] Comment on above: Performed By: #### H EMDF, PT, BMP3M, PHOS3, MG3, CK3 #### [address] [address] #### VD25H #### [place] [address] [place] [address] GFR/1.73 sq M predicted among non-blacks MDRD vol rate/area (S/P/Bld) mL/min/{1.73_m2} Normal >60 [facility] Comment on above: Result Comment: Sour ce- MDRD equation with creatinine calibration to IDMS(NKDEP) eGFR not recommended for drug dose adjustment Performed By: #### H EMDF, PT, BMP3M, PHOS3, MG3, CK3 #### [place] [address] [place] #### VD25H #### [facility] [address] [place] [address] Urea nitrogen mass conc 23 mg/dL High 7-20 S [facility] Comment on above: Performed By: #### H EMDF, PT, BMP3M, PHOS3, MG3, CK3 #### [place] [address] [place] #### VD25H #### [facility] [address] [place] [address] Chloride molar conc 95 mmol/L Low 98-107 [facility] Comment on above: Performed By: #### H EMDF, PT, BMP3M, PHOS3, MG3, CK3 #### [address] #### VD25H #### [facility] [address] [place] [address] Potassium molar conc 3.7 mmol/L Normal 3.5-5.1 [facility] Comment on above: Performed By: #### H EMDF, PT, BMP3M, PHOS3, MG3, CK3 #### [address] #### VD25H #### [facility] [address] [place] [address] Sodium molar conc 139 mmol/L Normal 135-145 [facility] Comment on above: Performed By: #### H EMDF, PT, BMP3M, PHOS3, MG3, CK3 #### [place] [address] [place], [place] #### VD25H #### [facility] [address] [place] [address] Hemogram w/ Autodiffon 07-31 Abs Baso Cnt 0.2 10*3/uL Normal 0.0-0.2 [facility] Comment on above: Performed By: #### H EMDF, PT, BMP3M, PHOS3, MG3, CK3 #### [address] [place] #### VD25H #### [facility] [address] [place] [address] Abs Neutrophile Cnt 13.4 10*3/uL High 1.8-7.0 [facility] Comment on above: Performed By: #### H EMDF, PT, BMP3M, PHOS3, MG3, CK3 #### [place] [address] [place] #### VD25H #### [facility] [address] [place] [address] Basophils/100 WBC (Bld) 1.0 % Normal 0.0-2.0 S [facility] Comment on above: Performed By: #### H EMDF, PT, BMP3M, PHOS3, MG3, CK3 #### [address] #### VD25H #### [facility] [address] [place] [address] Eosinophils #/vol (Bld) 0.5 10*3/uL Normal 0.0-0.5 [facility] Comment on above: Performed By: #### H EMDF, PT, BMP3M, PHOS3, MG3, CK3 #### [address] #### VD25H #### [facility] [address] [place] [address] Eosinophils/100 WBC (Bld) 3.1 % Normal 1.0-6.0 [facility] Comment on above: Performed By: #### H EMDF, PT, BMP3M, PHOS3, MG3, CK3 #### [address] #### VD25H #### [facility] [address] [place] [address] Erythrocyte distribution width Ratio (RBC) 14.0 % Normal 11.5-14.5 [facility] Comment on above: Performed By: #### H EMDF, PT, BMP3M, PHOS3, MG3, CK3 #### [facility] [address] [place] #### VD25H #### [facility] [address] [place] [address] Granulocytes/100 WBC (Bld) 80.6 % High 40.0-80.0 [facility] Comment on above: Performed By: #### H EMDF, PT, BMP3M, PHOS3, MG3, CK3 #### [address] #### VD25H #### [facility] [address] [place] [address] Hematocrit Volume Fraction (Bld) 32.3 % Low 40.0-52.0 [facility] Comment on above: Performed By: #### H EMDF, PT, BMP3M, PHOS3, MG3, CK3 #### [address] #### VD25H #### [facility] [address] [place] [address] Hemoglobin mass conc (Bld) 10.8 g/dL Low 13.0-18.0 [facility] Comment on above: Performed By: #### H EMDF, PT, BMP3M, PHOS3, MG3, CK3 #### [address] #### VD25H #### [facility] [address] [place] [address] Lymphocytes #/vol (Bld) 1.6 10*3/uL Normal 1.0-4.3 [facility] Comment on above: Performed By: #### H EMDF, PT, BMP3M, PHOS3, MG3, CK3 #### [address] #### VD25H #### [facility] [address] [place] [address] Lymphocytes/100 WBC (Bld) 9.8 % Low 20.0-40.0 [facility] Comment on above: Performed By: #### H EMDF, PT, BMP3M, PHOS3, MG3, CK3 #### [place] [address] [place] #### VD25H #### [facility] [address] [place] [address] MCH Entitic mass (RBC) 28.9 pg Normal 26.0-34.0 [facility] Comment on above: Performed By: #### H EMDF, PT, BMP3M, PHOS3, MG3, CK3 #### [address] #### VD25H #### [facility] [address] [place] [address] MCHC mass conc (RBC) 33.6 % Normal 32.0-36.0 [facility] Comment on above: Performed By: #### H EMDF, PT, BMP3M, PHOS3, MG3, CK3 #### [address] #### VD25H #### [facility] [address] [place] [address] MCV Entitic volume (RBC) 86.1 fL Normal 80.0-98.0 [facility] Comment on above: Performed By: #### H EMDF, PT, BMP3M, PHOS3, MG3, CK3 #### [address] #### VD25H #### [facility] [address] [place] [address] Monocytes #/vol (Bld) 0.9 10*3/uL High 0.0-0.8 [facility] Comment on above: Performed By: #### H EMDF, PT, BMP3M, PHOS3, MG3, CK3 #### [address] #### VD25H #### [facility] [address] [place] [address] Monocytes/100 WBC (Bld) 5.5 % Normal 2.0-10.0 S [facility] Comment on above: Performed By: #### H EMDF, PT, BMP3M, PHOS3, MG3, CK3 #### [facility] [address] [place] #### VD25H #### [facility] [address] [place] [address] Platelet mean volume Entitic volume (Bld) 8.2 fL Normal 7.4-10.4 [facility] Comment on above: Performed By: #### H EMDF, PT, BMP3M, PHOS3, MG3, CK3 #### [address] #### VD25H #### [facility] [address] [place] [address] Platelets #/vol (Bld) 475 10*3/uL High 140-440 [facility] Comment on above: Performed By: #### H EMDF, PT, BMP3M, PHOS3, MG3, CK3 #### [address] #### VD25H #### [facility] [address] [place] [address] RBC #/vol (Bld) 3.75 10*6/uL Low 4.40-5.90 [facility] Comment on above: Performed By: #### H EMDF, PT, BMP3M, PHOS3, MG3, CK3 #### [facility] [address] [place] #### VD25H #### [facility] [address] [place] [address] WBC #/vol (Bld) 16.6 10*3/uL High 3.6-10.7 [facility] Comment on above: Performed By: #### H EMDF, PT, BMP3M, PHOS3, MG3, CK3 #### [address] #### VD25H #### [facility] [address] [place] [address] Magnesiumon 07-31-2018 Magnesium mass conc 2.4 mg/dL High 1.6-2.3 [facility] Comment on above: Performed By: #### H EMDF, PT, BMP3M, PHOS3, MG3, CK3 #### [address] [place] #### VD25H #### [facility] [address] [place] [address] Phosphoruson 07-31-2018 Phosphate mass conc 4.5 mg/dL Normal 2.5-4.5 [facility] Comment on above: Performed By: #### H EMDF, PT, BMP3M, PHOS3, MG3, CK3 #### [address] #### VD25H #### [place] [address] [place] [address] Basic Metabolic Panelon Calcium mass conc 8.6 mg/dL Normal 8.4-10.4 [facility] Comment on above: Performed By: #### H EMDF, PT, BMP3M, PHOS3, MG3, CK3 #### [address] #### VD25H #### [facility] [address] [place] [address] Anion gap molar conc 8 Normal [facility] Comment on above: Performed By: #### H EMDF, PT, BMP3M, PHOS3, MG3, CK3 #### [address] #### VD25H #### [facility] [address] [place] [address] CO2 molar conc 34 mmol/L High 22-30 [facility] Comment on above: Performed By: #### H EMDF, PT, BMP3M, PHOS3, MG3, CK3 #### [address] #### VD25H #### [facility] [address] [place] [address] Creatinine mass conc 0.56 mg/dL Normal 0.52-1.25 [facility] Comment on above: Performed By: #### H EMDF, PT, BMP3M, PHOS3, MG3, CK3 #### [place] [address] [place] #### VD25H #### [facility] [address] [place] [address] GFR/1.73 sq M predicted among blacks MDRD vol rate/area (S/P/Bld) mL/min/{1.73_m2} Normal >60 [facility] Comment on above: Performed By: #### H EMDF, PT, BMP3M, PHOS3, MG3, CK3 #### [address] #### VD25H #### [place] [address] [place] [address] GFR/1.73 sq M predicted among non-blacks MDRD vol rate/area (S/P/Bld) mL/min/{1.73_m2} Normal >60 [facility] Comment on above: Result Comment: Sour ce- MDRD equation with creatinine calibration to IDMS(NKDEP) eGFR not recommended for drug dose adjustment Performed By: #### H EMDF, PT, BMP3M, PHOS3, MG3, CK3 #### [address] #### VD25H #### [facility] [address] [place] [address] Glucose mass conc 121 mg/dL High 70-100 [facility] Comment on above: Performed By: #### H EMDF, PT, BMP3M, PHOS3, MG3, CK3 #### [address] #### VD25H #### [place] [address] [place] [address] Urea nitrogen mass conc 29 mg/dL High 7-20 S [facility] Comment on above: Performed By: #### H EMDF, PT, BMP3M, PHOS3, MG3, CK3 #### [facility] [address] [place] [address] #### VD25H #### [facility] [address] [place] [address] Chloride molar conc 99 mmol/L Normal 98-107 [facility] Comment on above: Performed By: #### H EMDF, PT, BMP3M, PHOS3, MG3, CK3 #### [place] [address] [place] [address] #### VD25H #### [facility] [address] [place] [address] Potassium molar conc 3.7 mmol/L Normal 3.5-5.1 [facility] Comment on above: Performed By: #### H EMDF, PT, BMP3M, PHOS3, MG3, CK3 #### [place] [address] [place] [address] #### VD25H #### [facility] [address] [place] [address] Sodium molar conc 141 mmol/L Normal 135-145 [facility] Comment on above: Performed By: #### H EMDF, PT, BMP3M, PHOS3, MG3, CK3 #### [place] [address] [place] [address] #### VD25H #### [facility] [address] [place] [address] CR Abdomen APon 07-30-2018 CR Abdomen AP Patient Name: KATHYA HOOPER Diagnostic Radiology Exam Date/Time 07/30/2018 10:28:42 EDT Exam CR Abdomen AP Ordering Physician INDRA JACOBSON Accession Number [id number] CPT4 Codes 35935 () Reason For Exam abd distension Report [...] and Time: 07/30/2018 3:57 Normal [facility] CR Chest Portableon 07-31-19 CR Chest Portable Patient Name: KATHYA HOOPER Diagnostic Radiology Exam Date/Time 07/30/2018 12:28:13 EDT Exam CR Chest Portable Ordering Physician SALO DAVIS Accession Number [id number] CPT4 Codes 64292 () Reason For Exam line reposition Report [...] and Time: 07/30/2018 1:32 Normal [facility] CR Chest Portable Patient Name: KATHYA HOOPER Diagnostic Radiology Exam Date/Time 07/30/2018 06:40:08 EDT Exam CR Chest Portable Ordering Physician MARIA EUGENIA PEREZ Accession Number [id number] CPT4 Codes 51066 () Reason For Exam ETT placement Report [...] Transcribed Date and Time: 07/30/2018 10:26 Normal [facility] Glucose,Bedsideon 07-30-2018 Glucose mass conc 125 mg/dL High 70-100 [facility] Comment on above: Result Comment: Test performed by glucose meter. Results may be 10%-15% lower than serum/plasma values. (CLIA ID [id number]) Performed By: #### H EMDF, PT, BMP3M, PHOS3, MG3, CK3 #### [facility] [address] [place] [address] #### VD25H #### [facility] [address] [place] [address] Glucose mass conc 117 mg/dL High 70-100 [facility] Comment on above: Result Comment: Test performed by glucose meter. Results may be 10%-15% lower than serum/plasma values. (CLIA ID [id number]) Performed By: #### H EMDF, PT, BMP3M, PHOS3, MG3, CK3 #### [address] #### VD25H #### [facility] [address] [place] [address] Glucose mass conc 44 mg/dL Low 70-100 [facility] Comment on above: Result Comment: Repe ated Test; Test performed by glucose meter. Results may be 10%-15% lower than serum/plasma values. (CLIA ID [id number]) Performed By: #### H EMDF, PT, BMP3M, PHOS3, MG3, CK3 #### [address] #### VD25H #### [place] [address] [place] [address] Hemogram w/ Autodiffon 07-30 Abs Baso Cnt 0.2 10*3/uL Normal 0.0-0.2 [facility] Comment on above: Performed By: #### H EMDF, PT, BMP3M, PHOS3, MG3, CK3 #### [address] #### VD25H #### [place] [address] [place] [address] Abs Neutrophile Cnt 13.2 10*3/uL High 1.8-7.0 [facility] Comment on above: Performed By: #### H EMDF, PT, BMP3M, PHOS3, MG3, CK3 #### [address] #### VD25H #### [facility] [address] [place] [address] Basophils/100 WBC (Bld) 0.9 % Normal 0.0-2.0 S [facility] Comment on above: Performed By: #### H EMDF, PT, BMP3M, PHOS3, MG3, CK3 #### [address], [place] #### VD25H #### [facility] [address] [place] [address] Eosinophils #/vol (Bld) 0.5 10*3/uL Normal 0.0-0.5 [facility] Comment on above: Performed By: #### H EMDF, PT, BMP3M, PHOS3, MG3, CK3 #### [address] [place], [place] #### VD25H #### [facility] [address] [place] [address] Eosinophils/100 WBC (Bld) 2.8 % Normal 1.0-6.0 [facility] Comment on above: Performed By: #### H EMDF, PT, BMP3M, PHOS3, MG3, CK3 #### [address] #### VD25H #### [facility] [address] [place] [address] Erythrocyte distribution width Ratio (RBC) 13.7 % Normal 11.5-14.5 [facility] Comment on above: Performed By: #### H EMDF, PT, BMP3M, PHOS3, MG3, CK3 #### [address] #### VD25H #### [facility] [address] [place] [address] Granulocytes/100 WBC (Bld) 76.6 % Normal 40.0-80.0 [facility] Comment on above: Performed By: #### H EMDF, PT, BMP3M, PHOS3, MG3, CK3 #### [address] #### VD25H #### [facility] [address] [place] [address] Hematocrit Volume Fraction (Bld) 31.4 % Low 40.0-52.0 [facility] Comment on above: Performed By: #### H EMDF, PT, BMP3M, PHOS3, MG3, CK3 #### [facility] [address] [place], [place] #### VD25H #### [facility] [address] [place] [address] Hemoglobin mass conc (Bld) 10.6 g/dL Low 13.0-18.0 [facility] Comment on above: Performed By: #### H EMDF, PT, BMP3M, PHOS3, MG3, CK3 #### [place] [address] [place], [place] #### VD25H #### [facility] [address] [place] [address] Lymphocytes #/vol (Bld) 2.2 10*3/uL Normal 1.0-4.3 [facility] Comment on above: Performed By: #### H EMDF, PT, BMP3M, PHOS3, MG3, CK3 #### [address] #### VD25H #### [facility] [address] [place] [address] Lymphocytes/100 WBC (Bld) 12.9 % Low 20.0-40.0 [facility] Comment on above: Performed By: #### H EMDF, PT, BMP3M, PHOS3, MG3, CK3 #### [place] [address] [place] #### VD25H #### [facility] [address] [place] [address] MCH Entitic mass (RBC) 29.2 pg Normal 26.0-34.0 [facility] Comment on above: Performed By: #### H EMDF, PT, BMP3M, PHOS3, MG3, CK3 #### [address] [place], [place] #### VD25H #### [facility] [address] [place] [address] MCHC mass conc (RBC) 33.8 % Normal 32.0-36.0 [facility] Comment on above: Performed By: #### H EMDF, PT, BMP3M, PHOS3, MG3, CK3 #### [address] [place], [place] #### VD25H #### [facility] [address] [place] [address] MCV Entitic volume (RBC) 86.4 fL Normal 80.0-98.0 [facility] Comment on above: Performed By: #### H EMDF, PT, BMP3M, PHOS3, MG3, CK3 #### [address] [place] #### VD25H #### [facility] [address] [place] [address] Monocytes #/vol (Bld) 1.2 10*3/uL High 0.0-0.8 [facility] Comment on above: Performed By: #### H EMDF, PT, BMP3M, PHOS3, MG3, CK3 #### [address] #### VD25H #### [facility] [address] [place] [address] Monocytes/100 WBC (Bld) 6.8 % Normal 2.0-10.0 S [facility] Comment on above: Performed By: #### H EMDF, PT, BMP3M, PHOS3, MG3, CK3 #### [address] #### VD25H #### [facility] [address] [place] [address] Platelet mean volume Entitic volume (Bld) 8.1 fL Normal 7.4-10.4 [facility] Comment on above: Performed By: #### H EMDF, PT, BMP3M, PHOS3, MG3, CK3 #### [address] #### VD25H #### [facility] [address] [place] [address] Platelets #/vol (Bld) 507 10*3/uL High 140-440 [facility] Comment on above: Performed By: #### H EMDF, PT, BMP3M, PHOS3, MG3, CK3 #### [place] [address] [place] #### VD25H #### [facility] [address] [place] [address] RBC #/vol (Bld) 3.64 10*6/uL Low 4.40-5.90 [facility] Comment on above: Performed By: #### H EMDF, PT, BMP3M, PHOS3, MG3, CK3 #### [address] #### VD25H #### [facility] [address] [place] [address] WBC #/vol (Bld) 17.2 10*3/uL High 3.6-10.7 [facility] Comment on above: Performed By: #### H EMDF, PT, BMP3M, PHOS3, MG3, CK3 #### [address] #### VD25H #### [facility] [address] [place] [address] Magnesiumon 07-30-2018 Magnesium mass conc 2.5 mg/dL High 1.6-2.3 [facility] Comment on above: Performed By: #### H EMDF, PT, BMP3M, PHOS3, MG3, CK3 #### [place] [address] [place] #### VD25H #### [facility] [address] [place] [address] Phosphoruson 07-30-2018 Phosphate mass conc 4.5 mg/dL Normal 2.5-4.5 [facility] Comment on above: Performed By: #### H EMDF, PT, BMP3M, PHOS3, MG3, CK3 #### [address] #### VD25H #### [facility] [address] [place] [address] VL Venous Duplex US Lower Ex t Bilateralon 07-30-2018 VL Venous Duplex US Lower Ext Bilateral Patient Name: KATHYA HOOPER Ultrasound Exam Date/Time 07/30/2018 12:27:47 EDT Exam VL Venous Duplex US Lower Ext Bilateral Ordering Physician ETIENNE MARTÍNEZ JULIE Accession Number [id number] CPT4 Codes 14872 () Reason For Exam edema Report [facility] --- Lower Extremity Venous Duplex Report Patient Name: Kathya Hooper : 1955 Study Date: 07/30/2018 W (63yrs) Age: 63 Account: [id number] Gender: M Loc: T209 BP: Ordering: Yesenia Martínez Technologist: Ordering Physician: Yesenia Martínez Manager Of Network: Barbara Suarez RDMS, [facility] Interpreting Physician: Krysta Arora --- Location: [facility] --- INDICATIONS: Edema. --- CONCLUSIONS [...] performed. The images were obtained using a Flexiant E9 vascular ultrasound machine. --- VENOUS FLOW [...] ---------+-------+--- --+ Electronically signed by: Krysta Arora [id number] Final Dictated: 07/30/2018 1:30 pm Dictating Physician: KRYSTA ARORA Signed Date and Time: 07/30/2018 1:29 pm Signed by: KRYSTA ARORA [facility]29 CO2 molar conc 34.4 mmol/L High 23.0-27.0 [facility] Comment on above: Performed By: #### H EMDF, PT, BMP3M, PHOS3, MG3, CK3 #### [facility] [address] [place] [address] #### VD25H #### [employer] [facility] [address] [place] [address] HCO3 molar conc (Bld) 33.0 mmol/L High 21.0-25.0 [facility] Comment on above: Performed By: #### H EMDF, PT, BMP3M, PHOS3, MG3, CK3 #### [facility] [address] [place] #### VD25H #### [facility] [address] [place] [address] Hemoglobin mass conc (Bld) 11.5 g/dL Normal [facility]Only [facility] Comment on above: Performed By: #### H EMDF, PT, BMP3M, PHOS3, MG3, CK3 #### [address] #### VD25H #### [facility] [address] [place] [address] Oxygen ppres (Bld) 84.2 mm[Hg] Normal 80.0-100.0 [facility] Comment on above: Performed By: #### H EMDF, PT, BMP3M, PHOS3, MG3, CK3 #### [address] #### VD25H #### [facility] [address] [place] [address] Oxygen saturation in Blood 96.2 % Normal 95.0-100.0 [facility] Comment on above: Performed By: #### H EMDF, PT, BMP3M, PHOS3, MG3, CK3 #### [address] #### VD25H #### [facility] [address] [place] [address] pCO2 46.8 mm[Hg] High 35.0-45.0 [facility] Comment on above: Performed By: #### H EMDF, PT, BMP3M, PHOS3, MG3, CK3 #### [address] #### VD25H #### [facility] [address] [place] [address] pH (Bld) 7.466 High 7.350-7.450 [facility] Comment on above: Performed By: #### H EMDF, PT, BMP3M, PHOS3, MG3, CK3 #### [place] [address] [place] #### VD25H #### [facility] [address] [place] [address] Std Base Excess 8.2 mmol/L High -3.0-3.0 [facility] Comment on above: Performed By: #### H EMDF, PT, BMP3M, PHOS3, MG3, CK3 #### [address] [place] #### VD25H #### [facility] [address] [place] [address] FIO2 .30 Normal [facility] Comment on above: Performed By: #### H EMDF, PT, BMP3M, PHOS3, MG3, CK3 #### [address] #### VD25H #### [facility] [address] [place] [address] Basic Metabolic Panelon 03-3 Calcium mass conc 8.5 mg/dL Normal 8.4-10.4 [facility] Comment on above: Performed By: #### H EMDF, PT, BMP3M, PHOS3, MG3, CK3 #### [address] #### VD25H #### [facility] [address] [place] [address] Glucose mass conc 163 mg/dL High 70-100 [facility] Comment on above: Performed By: #### H EMDF, PT, BMP3M, PHOS3, MG3, CK3 #### [address] [place] #### VD25H #### [facility] [address] [place] [address] Anion gap molar conc 10 Normal [facility] Comment on above: Performed By: #### H EMDF, PT, BMP3M, PHOS3, MG3, CK3 #### [address] [address] #### VD25H #### [facility] [address] [place] [address] CO2 molar conc 37 mmol/L High 22-30 [facility] Comment on above: Performed By: #### H EMDF, PT, BMP3M, PHOS3, MG3, CK3 #### [address] [address] #### VD25H #### [facility] [address] [place] [address] Creatinine mass conc 0.57 mg/dL Normal 0.52-1.25 [facility] Comment on above: Performed By: #### H EMDF, PT, BMP3M, PHOS3, MG3, CK3 #### [address] #### VD25H #### [place] [address] [place] [address] GFR/1.73 sq M predicted among blacks MDRD vol rate/area (S/P/Bld) mL/min/{1.73_m2} Normal >60 [facility] Comment on above: Performed By: #### H EMDF, PT, BMP3M, PHOS3, MG3, CK3 #### [address] #### VD25H #### [place] [address] [place] [address] GFR/1.73 sq M predicted among non-blacks MDRD vol rate/area (S/P/Bld) mL/min/{1.73_m2} Normal >60 [facility] Comment on above: Result Comment: Sour ce- MDRD equation with creatinine calibration to IDMS(NKDEP) eGFR not recommended for drug dose adjustment Performed By: #### H EMDF, PT, BMP3M, PHOS3, MG3, CK3 #### [address] #### VD25H #### [facility] [address] [place] [address] Urea nitrogen mass conc 30 mg/dL High 7-20 S [facility] Comment on above: Performed By: #### H EMDF, PT, BMP3M, PHOS3, MG3, CK3 #### [facility] [address] [place] #### VD25H #### [facility] [address] [place] [address] Chloride molar conc 95 mmol/L Low 98-107 [facility] Comment on above: Performed By: #### H EMDF, PT, BMP3M, PHOS3, MG3, CK3 #### [place] [address] [place] #### VD25H #### [facility] [address] [place] [address] Potassium molar conc 3.3 mmol/L Low 3.5-5.1 [facility] Comment on above: Performed By: #### H EMDF, PT, BMP3M, PHOS3, MG3, CK3 #### [place] [address] [place] #### VD25H #### [facility] [address] [place] [address] Sodium molar conc 141 mmol/L Normal 135-145 [facility] Comment on above: Performed By: #### H EMDF, PT, BMP3M, PHOS3, MG3, CK3 #### [place] [address] [facility] [place] #### VD25H #### [facility] [address] [place] [address] CR Chest Portableon 07-30-19 19 CR Chest Portable Patient Name: KATHYA HOOPER Diagnostic Radiology Exam Date/Time 07/29/2018 07:01:44 EDT Exam CR Chest Portable Ordering Physician MARIA EUGENIA PEREZ Accession Number [id number] CPT4 Codes 33966 () Reason For Exam ETT placement Report [...] Transcribed Date and Time: 07/29/2018 9:04 Normal [facility] Glucose,Bedsideon 07-29-2018 Glucose mass conc 124 mg/dL High 70-100 [facility] Comment on above: Result Comment: Test performed by glucose meter. Results may be 10%-15% lower than serum/plasma values. (CLIA ID [id number]) Performed By: #### H EMDF, PT, BMP3M, PHOS3, MG3, CK3 #### [facility] [employer] [facility] [address] [place] [address] #### VD25H #### [employer] [address] [place] [address] Glucose mass conc 175 mg/dL High 70-100 [employer] [facility] Comment on above: Result Comment: Test performed by glucose meter. Results may be 10%-15% lower than serum/plasma values. (CLIA ID [id number]) Performed By: #### H EMDF, PT, BMP3M, PHOS3, MG3, CK3 #### [facility] [address] [place] [address] #### VD25H #### [employer] [address] [place] [address] Glucose mass conc 138 mg/dL High 70-100 [facility] Comment on above: Result Comment: Test performed by glucose meter. Results may be 10%-15% lower than serum/plasma values. (CLIA ID [id number]) Performed By: #### H EMDF, PT, BMP3M, PHOS3, MG3, CK3 #### [address] #### VD25H #### [facility] [address] [place] [address] Glucose mass conc 147 mg/dL High 70-100 [facility] Comment on above: Result Comment: Test performed by glucose meter. Results may be 10%-15% lower than serum/plasma values. (CLIA ID [id number]) Performed By: #### H EMDF, PT, BMP3M, PHOS3, MG3, CK3 #### [address] #### VD25H #### [facility] [address] [place] [address] Hemogram w/ Autodiffon 07-29 Erythrocyte distribution width Ratio (RBC) 13.8 % Normal 11.5-14.5 [facility] Comment on above: Performed By: #### H EMDF, PT, BMP3M, PHOS3, MG3, CK3 #### [address] #### VD25H #### [facility] [address] [place] [address] Hematocrit Volume Fraction (Bld) 32.9 % Low 40.0-52.0 [facility] Comment on above: Performed By: #### H EMDF, PT, BMP3M, PHOS3, MG3, CK3 #### [address] #### VD25H #### [facility] [address] [place] [address] Hemoglobin mass conc (Bld) 11.0 g/dL Low 13.0-18.0 [facility] Comment on above: Performed By: #### H EMDF, PT, BMP3M, PHOS3, MG3, CK3 #### [facility] [address] [place] #### VD25H #### [facility] [address] [place] [address] MCH Entitic mass (RBC) 29.0 pg Normal 26.0-34.0 [facility] Comment on above: Performed By: #### H EMDF, PT, BMP3M, PHOS3, MG3, CK3 #### [place] [address] [place] #### VD25H #### [facility] [address] [place] [address] MCHC mass conc (RBC) 33.6 % Normal 32.0-36.0 [facility] Comment on above: Performed By: #### H EMDF, PT, BMP3M, PHOS3, MG3, CK3 #### [address] #### VD25H #### [facility] [address] [place] [address] MCV Entitic volume (RBC) 86.3 fL Normal 80.0-98.0 [facility] Comment on above: Performed By: #### H EMDF, PT, BMP3M, PHOS3, MG3, CK3 #### [address] #### VD25H #### [facility] [address] [place] [address] Platelet mean volume Entitic volume (Bld) 8.1 fL Normal 7.4-10.4 [facility] Comment on above: Performed By: #### H EMDF, PT, BMP3M, PHOS3, MG3, CK3 #### [address] [place] #### VD25H #### [facility] [address] [place] [address] Platelets #/vol (Bld) 501 10*3/uL High 140-440 [facility] Comment on above: Performed By: #### H EMDF, PT, BMP3M, PHOS3, MG3, CK3 #### [place] [address] [place] #### VD25H #### [facility] [address] [place] [address] RBC #/vol (Bld) 3.81 10*6/uL Low 4.40-5.90 [facility] Comment on above: Performed By: #### H EMDF, PT, BMP3M, PHOS3, MG3, CK3 #### [place] [address] [place] #### VD25H #### [facility] [address] [place] [address] WBC #/vol (Bld) 20.8 10*3/uL High 3.6-10.7 [facility] Comment on above: Performed By: #### H EMDF, PT, BMP3M, PHOS3, MG3, CK3 #### [address] [place] #### VD25H #### [place] [address] [place] [address] Magnesiumon 07-29-2018 Magnesium mass conc 2.5 mg/dL High 1.6-2.3 [facility] Comment on above: Performed By: #### H EMDF, PT, BMP3M, PHOS3, MG3, CK3 #### [address] [place] #### VD25H #### [facility] [address] [place] [address] Manual Diffon 07-29-2018 Abs Neutrophile Cnt 17.3 10*3/uL High 2.2-8.2 [facility] Comment on above: Performed By: #### H EMDF, PT, BMP3M, PHOS3, MG3, CK3 #### [address] #### VD25H #### [facility] [address] [place] [address] Bands 1 % Normal 0-3 [facility] Comment on above: Performed By: #### H EMDF, PT, BMP3M, PHOS3, MG3, CK3 #### [facility] [address] [place] #### VD25H #### [facility] [address] [place] [address] Eosinophils #/vol (Bld) 0.6 10*3/uL High 0.0-0.5 [facility] Comment on above: Performed By: #### H EMDF, PT, BMP3M, PHOS3, MG3, CK3 #### [address] #### VD25H #### [facility] [address] [place] [address] Eosinophils/100 WBC (Bld) 3 % Normal 1-6 [facility] Comment on above: Performed By: #### H EMDF, PT, BMP3M, PHOS3, MG3, CK3 #### [facility] [address] [place], [place] #### VD25H #### [facility] [address] [place] [address] Lymphocytes #/vol (Bld) 2.3 10*3/uL Normal 1.1-4.5 [facility] Comment on above: Performed By: #### H EMDF, PT, BMP3M, PHOS3, MG3, CK3 #### [facility] [address] [place], [place] #### VD25H #### [facility] [address] [place] [address] Lymphocytes/100 WBC (Bld) 11 % Low 20-40 [facility] Comment on above: Performed By: #### H EMDF, PT, BMP3M, PHOS3, MG3, CK3 #### [facility] [address] [place], [place] #### VD25H #### [facility] [address] [place] [address] Metamyelocytes 1 % Abnormal <1 [facility] Comment on above: Performed By: #### H EMDF, PT, BMP3M, PHOS3, MG3, CK3 #### [place] [address] [place] #### VD25H #### [facility] [address] [place] [address] Monocytes #/vol (Bld) 0.4 10*3/uL Normal 0.2-1.1 [facility] Comment on above: Performed By: #### H EMDF, PT, BMP3M, PHOS3, MG3, CK3 #### [place] [address] [place], [place] #### VD25H #### [facility] [address] [place] [address] Monocytes/100 WBC (Bld) 2 % Normal 2-10 S [facility] Comment on above: Performed By: #### H EMDF, PT, BMP3M, PHOS3, MG3, CK3 #### [address] #### VD25H #### [facility] [address] [place] [address] RBC morphology finding Nom (Bld) See Prev Normal [facility] Comment on above: Performed By: #### H EMDF, PT, BMP3M, PHOS3, MG3, CK3 #### [address] #### VD25H #### [facility] [address] [place] [address] Seg Neutrophils 82 % High 40-80 [facility] Comment on above: Performed By: #### H EMDF, PT, BMP3M, PHOS3, MG3, CK3 #### [address] [address] [place], [place] #### VD25H #### [facility] [address] [place] [address] Abs Baso Cnt 0.0 10*3/uL Normal 0.0-0.2 [facility] Comment on above: Performed By: #### H EMDF, PT, BMP3M, PHOS3, MG3, CK3 #### [place] [place] #### VD25H #### [facility] [address] [place] [address] Basophils/100 WBC (Bld) 0 % Normal 0-2 S [facility] Comment on above: Performed By: #### H EMDF, PT, BMP3M, PHOS3, MG3, CK3 #### [place] [place] #### VD25H #### [facility] [address] [place] [address] Cells counted 100 Normal [facility] Comment on above: Performed By: #### H EMDF, PT, BMP3M, PHOS3, MG3, CK3 #### [address] #### VD25H #### [facility] [address] [place] [address] Phosphoruson 07-29-2018 Phosphate mass conc 4.2 mg/dL Normal 2.5-4.5 [facility] Comment on above: Performed By: #### H EMDF, PT, BMP3M, PHOS3, MG3, CK3 #### [address] #### VD25H #### [facility] [address] [place] [address] Procalcitoninon 07-29-2018 Protein mass conc 0.11 ng/mL Abnormal <0.10 [facility] Comment on above: Performed By: #### H EMDF, PT, BMP3M, PHOS3, MG3, CK3 #### [place] [address] [place] #### VD25H #### [facility] [address] [place] [address] Interpretation See Below Normal [facility] Comment on above: Result Comment: PCT <0.50 = Low risk of severe sepsis and/or septic shock. PCT >2.00 = High risk of severe sepsis and/or septic shock. Performed By: #### H EMDF, PT, BMP3M, PHOS3, MG3, CK3 #### [address] #### VD25H #### [facility] [address] [place] [address] Vancomycin Troughon 07-30-19 19 Vancomycin Trough 12.2 ug/mL Low 15.0-20.0 [facility] Comment on above: Result Comment: . Performed By: #### H EMDF, PT, BMP3M, PHOS3, MG3, CK3 #### [address] #### VD25H #### [place] [address] [place] [address] Basic Metabolic Panelon 07-01 Calcium mass conc 8.6 mg/dL Normal 8.4-10.4 [facility] Comment on above: Performed By: #### H EMDF, PT, BMP3M, PHOS3, MG3, CK3 #### [address] #### VD25H #### [facility] [address] [place] [address] Glucose mass conc 158 mg/dL High 70-100 [facility] Comment on above: Performed By: #### H EMDF, PT, BMP3M, PHOS3, MG3, CK3 #### [address] #### VD25H #### [facility] [address] [place] [address] Urea nitrogen mass conc 29 mg/dL High 7-20 S [facility] Comment on above: Performed By: #### H EMDF, PT, BMP3M, PHOS3, MG3, CK3 #### [address] #### VD25H #### [facility] [address] [place] [address] Anion gap molar conc 9 Normal [facility] Comment on above: Performed By: #### H EMDF, PT, BMP3M, PHOS3, MG3, CK3 #### [address] [address] #### VD25H #### [facility] [address] [place] [address] CO2 molar conc 32 mmol/L High 22-30 [facility] Comment on above: Performed By: #### H EMDF, PT, BMP3M, PHOS3, MG3, CK3 #### [address] [address] #### VD25H #### [place] [address] [place] [address] Creatinine mass conc 0.61 mg/dL Normal 0.52-1.25 [facility] Comment on above: Performed By: #### H EMDF, PT, BMP3M, PHOS3, MG3, CK3 #### [address] [address] #### VD25H #### [facility] [address] [place] [address] GFR/1.73 sq M predicted among blacks MDRD vol rate/area (S/P/Bld) mL/min/{1.73_m2} Normal >60 [facility] Comment on above: Performed By: #### H EMDF, PT, BMP3M, PHOS3, MG3, CK3 #### [address] [address] #### VD25H #### [place] [address] [place] [address] GFR/1.73 sq M predicted among non-blacks MDRD vol rate/area (S/P/Bld) mL/min/{1.73_m2} Normal >60 [facility] Comment on above: Result Comment: Sour ce- MDRD equation with creatinine calibration to IDMS(NKDEP) eGFR not recommended for drug dose adjustment Performed By: #### H EMDF, PT, BMP3M, PHOS3, MG3, CK3 #### [facility] [address] [place] [address] #### VD25H #### [facility] [address] [place] [address] Potassium molar conc 3.6 mmol/L Normal 3.5-5.1 [facility] Comment on above: Performed By: #### H EMDF, PT, BMP3M, PHOS3, MG3, CK3 #### [facility] [address] [place] [address] #### VD25H #### [facility] [address] [place] [address] Chloride molar conc 100 mmol/L Normal 98-107 [facility] Comment on above: Performed By: #### H EMDF, PT, BMP3M, PHOS3, MG3, CK3 #### [facility] [address] [place] [address] #### VD25H #### [facility] [address] [place] [address] Sodium molar conc 141 mmol/L Normal 135-145 [facility] Comment on above: Performed By: #### H EMDF, PT, BMP3M, PHOS3, MG3, CK3 #### [facility] [address] [place] [address] #### VD25H #### [facility] [address] [place] [address] CR Chest Portableon 07-29-19 19 CR Chest Portable Patient Name: KATHYA HOOPER Diagnostic Radiology Exam Date/Time 07/28/2018 07:09:40 EDT Exam CR Chest Portable Ordering Physician MARIA EUGENIA PEREZ Accession Number [id number] CPT4 Codes 02656 () Reason For Exam ETT placement Report [...] Transcribed Date and Time: 07/28/2018 7:16 Normal [facility] Glucose,Bedsideon 07-28-2018 Glucose mass conc 149 mg/dL High 70-100 [facility] Comment on above: Result Comment: Test performed by glucose meter. Results may be 10%-15% lower than serum/plasma values. (CLIA ID [id number]) Performed By: #### H EMDF, PT, BMP3M, PHOS3, MG3, CK3 #### [facility] [address] [place] [address] #### VD25H #### [facility] [address] [place] [address] Glucose mass conc 142 mg/dL High 70-100 [facility] Comment on above: Result Comment: Test performed by glucose meter. Results may be 10%-15% lower than serum/plasma values. (CLIA ID [id number]) Performed By: #### H EMDF, PT, BMP3M, PHOS3, MG3, CK3 #### [facility] [address] [place] [address] #### VD25H #### [facility] [address] [place] [address] Hemogram w/ Autodiffon 07-28 Erythrocyte distribution width Ratio (RBC) 13.8 % Normal 11.5-14.5 [facility] Comment on above: Performed By: #### H EMDF, PT, BMP3M, PHOS3, MG3, CK3 #### [facility] [address] [place], [place] #### VD25H #### [facility] [address] [place] [address] Hematocrit Volume Fraction (Bld) 33.0 % Low 40.0-52.0 [facility] Comment on above: Performed By: #### H EMDF, PT, BMP3M, PHOS3, MG3, CK3 #### [place] [address] [place] #### VD25H #### [facility] [address] [place] [address] Hemoglobin mass conc (Bld) 11.0 g/dL Low 13.0-18.0 [facility] Comment on above: Performed By: #### H EMDF, PT, BMP3M, PHOS3, MG3, CK3 #### [address] #### VD25H #### [facility] [address] [place] [address] MCH Entitic mass (RBC) 28.7 pg Normal 26.0-34.0 [facility] Comment on above: Performed By: #### H EMDF, PT, BMP3M, PHOS3, MG3, CK3 #### [place] [address] [place], [place] #### VD25H #### [facility] [address] [place] [address] MCHC mass conc (RBC) 33.4 % Normal 32.0-36.0 [facility] Comment on above: Performed By: #### H EMDF, PT, BMP3M, PHOS3, MG3, CK3 #### [address] #### VD25H #### [facility] [address] [place] [address] MCV Entitic volume (RBC) 86.0 fL Normal 80.0-98.0 [facility] Comment on above: Performed By: #### H EMDF, PT, BMP3M, PHOS3, MG3, CK3 #### [address] #### VD25H #### [facility] [address] [place] [address] Platelet mean volume Entitic volume (Bld) 8.4 fL Normal 7.4-10.4 [facility] Comment on above: Performed By: #### H EMDF, PT, BMP3M, PHOS3, MG3, CK3 #### [place] [address] [place] #### VD25H #### [facility] [address] [place] [address] Platelets #/vol (Bld) 477 10*3/uL High 140-440 [facility] Comment on above: Performed By: #### H EMDF, PT, BMP3M, PHOS3, MG3, CK3 #### [address] #### VD25H #### [place] [address] [place] [address] RBC #/vol (Bld) 3.84 10*6/uL Low 4.40-5.90 [facility] Comment on above: Performed By: #### H EMDF, PT, BMP3M, PHOS3, MG3, CK3 #### [address] #### VD25H #### [place] [address] [place] [address] WBC #/vol (Bld) 18.1 10*3/uL High 3.6-10.7 [facility] Comment on above: Performed By: #### H EMDF, PT, BMP3M, PHOS3, MG3, CK3 #### [address] #### VD25H #### [place] [address] [place] [address] Magnesiumon 07-28-2018 Magnesium mass conc 2.4 mg/dL High 1.6-2.3 [facility] Comment on above: Performed By: #### H EMDF, PT, BMP3M, PHOS3, MG3, CK3 #### [facility] [address] [place] #### VD25H #### [facility] [address] [place] [address] Manual Diffon 07-28-2018 Abs Neutrophile Cnt 14.8 10*3/uL High 2.2-8.2 [facility] Comment on above: Performed By: #### H EMDF, PT, BMP3M, PHOS3, MG3, CK3 #### [place] [address] [place] #### VD25H #### [facility] [address] [place] [address] Anisocytosis Ql (Bld) Slight Normal [facility] Comment on above: Performed By: #### H EMDF, PT, BMP3M, PHOS3, MG3, CK3 #### [place] [address] [place] #### VD25H #### [facility] [address] [place] [address] Hypochromia Slight Normal [facility] Comment on above: Performed By: #### H EMDF, PT, BMP3M, PHOS3, MG3, CK3 #### [place] [address] [place] #### VD25H #### [facility] [address] [place] [address] Lymphocytes #/vol (Bld) 1.3 10*3/uL Normal 1.1-4.5 [facility] Comment on above: Performed By: #### H EMDF, PT, BMP3M, PHOS3, MG3, CK3 #### [place] [address] [place] #### VD25H #### [facility] [address] [place] [address] Lymphocytes/100 WBC (Bld) 7 % Low 20-40 [facility] Comment on above: Performed By: #### H EMDF, PT, BMP3M, PHOS3, MG3, CK3 #### [place] [address] [place] #### VD25H #### [facility] [address] [place] [address] Microcytosis Slight Normal [facility] Comment on above: Performed By: #### H EMDF, PT, BMP3M, PHOS3, MG3, CK3 #### [place] [address] [place] #### VD25H #### [facility] [address] [place] [address] Monocytes #/vol (Bld) 2.0 10*3/uL High 0.2-1.1 [facility] Comment on above: Performed By: #### H EMDF, PT, BMP3M, PHOS3, MG3, CK3 #### [address] #### VD25H #### [facility] [address] [place] [address] Monocytes/100 WBC (Bld) 11 % High 2-10 S [facility] Comment on above: Performed By: #### H EMDF, PT, BMP3M, PHOS3, MG3, CK3 #### [address] #### VD25H #### [facility] [address] [place] [address] RBC morphology finding Nom (Bld) ABNORMAL Normal [facility] Comment on above: Performed By: #### H EMDF, PT, BMP3M, PHOS3, MG3, CK3 #### [address] #### VD25H #### [facility] [address] [place] [address] Seg Neutrophils 82 % High 40-80 [facility] Comment on above: Performed By: #### H EMDF, PT, BMP3M, PHOS3, MG3, CK3 #### [place] [address] [place], [place] #### VD25H #### [facility] [address] [place] [address] Abs Baso Cnt 0.0 10*3/uL Normal 0.0-0.2 [facility] Comment on above: Performed By: #### H EMDF, PT, BMP3M, PHOS3, MG3, CK3 #### [place] [address] [place] #### VD25H #### [facility] [address] [place] [address] Bands 0 % Normal 0-3 [facility] Comment on above: Performed By: #### H EMDF, PT, BMP3M, PHOS3, MG3, CK3 #### [place] [address] [place] #### VD25H #### [facility] [address] [place] [address] Basophils/100 WBC (Bld) 0 % Normal 0-2 S [facility] Comment on above: Performed By: #### H EMDF, PT, BMP3M, PHOS3, MG3, CK3 #### [place] [address] [place] #### VD25H #### [facility] [address] [place] [address] Cells counted 100 Normal [facility] Comment on above: Performed By: #### H EMDF, PT, BMP3M, PHOS3, MG3, CK3 #### [place] [address] [place] #### VD25H #### [facility] [address] [place] [address] Eosinophils #/vol (Bld) 0.0 10*3/uL Normal 0.0-0.5 [facility] Comment on above: Performed By: #### H EMDF, PT, BMP3M, PHOS3, MG3, CK3 #### [place] [address] [place] #### VD25H #### [facility] [address] [place] [address] Eosinophils/100 WBC (Bld) 0 % Low 1-6 [facility] Comment on above: Performed By: #### H EMDF, PT, BMP3M, PHOS3, MG3, CK3 #### [address] #### VD25H #### [facility] [address] [place] [address] Phosphoruson 07-28-2018 Phosphate mass conc 4.4 mg/dL Normal 2.5-4.5 [facility] Comment on above: Performed By: #### H EMDF, PT, BMP3M, PHOS3, MG3, CK3 #### [address] #### VD25H #### [place] [address] [place] [address] Vancomycin Troughon 07-29-19 19 Vancomycin Trough 12.9 ug/mL Low 15.0-20.0 [facility] Comment on above: Result Comment: . Performed By: #### H EMDF, PT, BMP3M, PHOS3, MG3, CK3 #### [address] #### VD25H #### [place] [address] [place] [address] Arterial Blood Gaseson 07-27 CO2 molar conc 28.4 mmol/L High 23.0-27.0 [facility] Comment on above: Performed By: #### H EMDF, PT, BMP3M, PHOS3, MG3, CK3 #### [address] #### VD25H #### [facility] [address] [place] [address] HCO3 molar conc (Bld) 27.2 mmol/L High 21.0-25.0 [facility] Comment on above: Performed By: #### H EMDF, PT, BMP3M, PHOS3, MG3, CK3 #### [facility] [address] [place] #### VD25H #### [facility] [address] [place] [address] Hemoglobin mass conc (Bld) 11.7 g/dL Normal [facility]Only [facility] Comment on above: Performed By: #### H EMDF, PT, BMP3M, PHOS3, MG3, CK3 #### [facility] [address] [place] #### VD25H #### [facility] [address] [place] [address] Oxygen ppres (Bld) 91.3 mm[Hg] Normal 80.0-100.0 [facility] Comment on above: Performed By: #### H EMDF, PT, BMP3M, PHOS3, MG3, CK3 #### [place] [address] [place] #### VD25H #### [facility] [address] [place] [address] Oxygen saturation in Blood 96.9 % Normal 95.0-100.0 [facility] Comment on above: Performed By: #### H EMDF, PT, BMP3M, PHOS3, MG3, CK3 #### [place] [address] [place] #### VD25H #### [facility] [address] [place] [address] pCO2 39.0 mm[Hg] Normal 35.0-45.0 [facility] Comment on above: Performed By: #### H EMDF, PT, BMP3M, PHOS3, MG3, CK3 #### [facility] [address] [place] #### VD25H #### [facility] [address] [place] [address] pH (Bld) 7.461 High 7.350-7.450 [facility] Comment on above: Performed By: #### H EMDF, PT, BMP3M, PHOS3, MG3, CK3 #### [facility] [address] [place] #### VD25H #### [facility] [address] [place] [address] Std Base Excess 3.2 mmol/L High -3.0-3.0 [facility] Comment on above: Performed By: #### H EMDF, PT, BMP3M, PHOS3, MG3, CK3 #### [place] [address] [facility] #### VD25H #### [facility] [address] [place] [address] FIO2 No data Normal [facility] Comment on above: Performed By: #### H EMDF, PT, BMP3M, PHOS3, MG3, CK3 #### [place] [address] [place] #### VD25H #### [facility] [address] [place] [address] Basic Metabolic Panelon 03-2 Anion gap molar conc 12 Normal [facility] Comment on above: Performed By: #### H EMDF, PT, BMP3M, PHOS3, MG3, CK3 #### [place] [address] [facility] #### VD25H #### [facility] [address] [place] [address] Calcium mass conc 8.3 mg/dL Low 8.4-10.4 [facility] Comment on above: Performed By: #### H EMDF, PT, BMP3M, PHOS3, MG3, CK3 #### [place] [address] [facility] #### VD25H #### [facility] [address] [place] [address] CO2 molar conc 28 mmol/L Normal 22-30 [facility] Comment on above: Performed By: #### H EMDF, PT, BMP3M, PHOS3, MG3, CK3 #### [place] [address] [facility] [place] #### VD25H #### [facility] [address] [place] [address] Glucose mass conc 156 mg/dL High 70-100 [facility] Comment on above: Performed By: #### H EMDF, PT, BMP3M, PHOS3, MG3, CK3 #### [address] #### VD25H #### [facility] [address] [place] [address] Urea nitrogen mass conc 21 mg/dL High 7-20 S [facility] Comment on above: Performed By: #### H EMDF, PT, BMP3M, PHOS3, MG3, CK3 #### [address] #### VD25H #### [facility] [address] [place] [address] Creatinine mass conc 0.53 mg/dL Normal 0.52-1.25 [facility] Comment on above: Performed By: #### H EMDF, PT, BMP3M, PHOS3, MG3, CK3 #### [address] #### VD25H #### [facility] [address] [place] [address] GFR/1.73 sq M predicted among blacks MDRD vol rate/area (S/P/Bld) mL/min/{1.73_m2} Normal >60 [facility] Comment on above: Performed By: #### H EMDF, PT, BMP3M, PHOS3, MG3, CK3 #### [address] #### VD25H #### [facility] [address] [place] [address] GFR/1.73 sq M predicted among non-blacks MDRD vol rate/area (S/P/Bld) mL/min/{1.73_m2} Normal >60 [facility] Comment on above: Result Comment: Sour ce- MDRD equation with creatinine calibration to IDMS(NKDEP) eGFR not recommended for drug dose adjustment Performed By: #### H EMDF, PT, BMP3M, PHOS3, MG3, CK3 #### [facility] [address] [place] #### VD25H #### [facility] [address] [place] [address] Potassium molar conc 3.2 mmol/L Low 3.5-5.1 [facility] Comment on above: Performed By: #### H EMDF, PT, BMP3M, PHOS3, MG3, CK3 #### [place] [address] [place] #### VD25H #### [facility] [address] [place] [address] Chloride molar conc 99 mmol/L Normal 98-107 [facility] Comment on above: Performed By: #### H EMDF, PT, BMP3M, PHOS3, MG3, CK3 #### [facility] [address] [place] #### VD25H #### [facility] [address] [place] [address] Sodium molar conc 139 mmol/L Normal 135-145 [facility] Comment on above: Performed By: #### H EMDF, PT, BMP3M, PHOS3, MG3, CK3 #### [facility] [address] [place] #### VD25H #### [facility] [address] [place] [address] CR Chest Portableon 07-28-19 19 CR Chest Portable Patient Name: KATHYA HOOPER Diagnostic Radiology Exam Date/Time 07/27/2018 07:08:59 EDT Exam CR Chest Portable Ordering Physician MARIA EUGENIA PEREZ Accession Number [id number] CPT4 Codes 38159 () Reason For Exam ETT placement Report [...] Transcribed Date and Time: 07/27/2018 8:02 Normal [facility] Glucose,Bedsideon 07-27-2018 Glucose mass conc 151 mg/dL High 70-100 [facility] Comment on above: Result Comment: Test performed by glucose meter. Results may be 10%-15% lower than serum/plasma values. (CLIA ID [id number]) Performed By: #### H EMDF, PT, BMP3M, PHOS3, MG3, CK3 #### [facility] [address] [place] [address] #### VD25H #### [facility] [address] [place] [address] Glucose mass conc 131 mg/dL High 70-100 [facility] Comment on above: Result Comment: Test performed by glucose meter. Results may be 10%-15% lower than serum/plasma values. (CLIA ID [id number]) Performed By: #### H EMDF, PT, BMP3M, PHOS3, MG3, CK3 #### [facility] [address] [place] [address] #### VD25H #### [facility] [address] [place] [address] Glucose mass conc 123 mg/dL High 70-100 [facility] Comment on above: Result Comment: Test performed by glucose meter. Results may be 10%-15% lower than serum/plasma values. (CLIA ID [id number]) Performed By: #### H EMDF, PT, BMP3M, PHOS3, MG3, CK3 #### [address] #### VD25H #### [facility] [address] [place] [address] Glucose mass conc 133 mg/dL High 70-100 [facility] Comment on above: Result Comment: Test performed by glucose meter. Results may be 10%-15% lower than serum/plasma values. (CLIA ID [id number]) Performed By: #### H EMDF, PT, BMP3M, PHOS3, MG3, CK3 #### [address] #### VD25H #### [facility] [address] [place] [address] Hemogram w/ Autodiffon 07-27 Erythrocyte distribution width Ratio (RBC) 13.5 % Normal 11.5-14.5 [facility] Comment on above: Performed By: #### H EMDF, PT, BMP3M, PHOS3, MG3, CK3 #### [address] #### VD25H #### [facility] [address] [place] [address] Hematocrit Volume Fraction (Bld) 32.5 % Low 40.0-52.0 [facility] Comment on above: Performed By: #### H EMDF, PT, BMP3M, PHOS3, MG3, CK3 #### [address] #### VD25H #### [facility] [address] [place] [address] Hemoglobin mass conc (Bld) 11.1 g/dL Low 13.0-18.0 [facility] Comment on above: Performed By: #### H EMDF, PT, BMP3M, PHOS3, MG3, CK3 #### [address] #### VD25H #### [place] [address] [place] [address] MCH Entitic mass (RBC) 29.2 pg Normal 26.0-34.0 [facility] Comment on above: Performed By: #### H EMDF, PT, BMP3M, PHOS3, MG3, CK3 #### [address] #### VD25H #### [facility] [address] [place] [address] MCHC mass conc (RBC) 34.1 % Normal 32.0-36.0 [facility] Comment on above: Performed By: #### H EMDF, PT, BMP3M, PHOS3, MG3, CK3 #### [address] #### VD25H #### [place] [address] [place] [address] MCV Entitic volume (RBC) 85.7 fL Normal 80.0-98.0 [facility] Comment on above: Performed By: #### H EMDF, PT, BMP3M, PHOS3, MG3, CK3 #### [address] #### VD25H #### [place] [address] [place] [address] Platelet mean volume Entitic volume (Bld) 7.9 fL Normal 7.4-10.4 [facility] Comment on above: Performed By: #### H EMDF, PT, BMP3M, PHOS3, MG3, CK3 #### [address] #### VD25H #### [place] [address] [place] [address] Platelets #/vol (Bld) 466 10*3/uL High 140-440 [facility] Comment on above: Performed By: #### H EMDF, PT, BMP3M, PHOS3, MG3, CK3 #### [address] #### VD25H #### [facility] [address] [place] [address] RBC #/vol (Bld) 3.79 10*6/uL Low 4.40-5.90 [facility] Comment on above: Performed By: #### H EMDF, PT, BMP3M, PHOS3, MG3, CK3 #### [address] #### VD25H #### [facility] [address] [place] [address] WBC #/vol (Bld) 18.7 10*3/uL High 3.6-10.7 [facility] Comment on above: Performed By: #### H EMDF, PT, BMP3M, PHOS3, MG3, CK3 #### [address] #### VD25H #### [place] [address] [place] [address] Magnesiumon 07-27-2018 Magnesium mass conc 2.1 mg/dL Normal 1.6-2.3 [facility] Comment on above: Performed By: #### H EMDF, PT, BMP3M, PHOS3, MG3, CK3 #### [address] #### VD25H #### [place] [address] [place] [address] Manual Diffon 07-27-2018 RBC morphology finding Nom (Bld) Normal Normal [facility] Comment on above: Performed By: #### H EMDF, PT, BMP3M, PHOS3, MG3, CK3 #### [address] #### VD25H #### [place] [address] [place] [address] Abs Neutrophile Cnt 14.2 10*3/uL High 2.2-8.2 [facility] Comment on above: Performed By: #### H EMDF, PT, BMP3M, PHOS3, MG3, CK3 #### [facility] [address] [place], [place] #### VD25H #### [facility] [address] [place] [address] Atypical Lymphocytes 2 % Abnormal <1 [facility] Comment on above: Performed By: #### H EMDF, PT, BMP3M, PHOS3, MG3, CK3 #### [address] [place] #### VD25H #### [facility] [address] [place] [address] Bands 5 % High 0-3 [facility] Comment on above: Performed By: #### H EMDF, PT, BMP3M, PHOS3, MG3, CK3 #### [address] #### VD25H #### [facility] [address] [place] [address] Eosinophils #/vol (Bld) 0.6 10*3/uL High 0.0-0.5 [facility] Comment on above: Performed By: #### H EMDF, PT, BMP3M, PHOS3, MG3, CK3 #### [address] #### VD25H #### [facility] [address] [place] [address] Eosinophils/100 WBC (Bld) 3 % Normal 1-6 [facility] Comment on above: Performed By: #### H EMDF, PT, BMP3M, PHOS3, MG3, CK3 #### [address] #### VD25H #### [facility] [address] [place] [address] Lymphocytes #/vol (Bld) 2.1 10*3/uL Normal 1.1-4.5 [facility] Comment on above: Performed By: #### H EMDF, PT, BMP3M, PHOS3, MG3, CK3 #### [address] [place], [place] #### VD25H #### [facility] [address] [place] [address] Lymphocytes/100 WBC (Bld) 11 % Low 20-40 [facility] Comment on above: Performed By: #### H EMDF, PT, BMP3M, PHOS3, MG3, CK3 #### [place] [address] [place] #### VD25H #### [facility] [address] [place] [address] Monocytes #/vol (Bld) 1.5 10*3/uL High 0.2-1.1 [facility] Comment on above: Performed By: #### H EMDF, PT, BMP3M, PHOS3, MG3, CK3 #### [address] #### VD25H #### [place] [address] [place] [address] Monocytes/100 WBC (Bld) 8 % Normal 2-10 S [facility] Comment on above: Performed By: #### H EMDF, PT, BMP3M, PHOS3, MG3, CK3 #### [place] [address] [place] #### VD25H #### [facility] [address] [place] [address] NRBC 1 /100{WBCs} High -1-0 [facility] Comment on above: Result Comment: Newb orn (<60 days) 1-10 Adult <1 Performed By: #### H EMDF, PT, BMP3M, PHOS3, MG3, CK3 #### [address] [place], [place] #### VD25H #### [facility] [address] [place] [address] Seg Neutrophils 71 % Normal 40-80 [facility] Comment on above: Performed By: #### H EMDF, PT, BMP3M, PHOS3, MG3, CK3 #### [facility] [address] [place], [place] #### VD25H #### [facility] [address] [place] [address] Abs Baso Cnt 0.0 10*3/uL Normal 0.0-0.2 [facility] Comment on above: Performed By: #### H EMDF, PT, BMP3M, PHOS3, MG3, CK3 #### [facility] [address] [place], [place] #### VD25H #### [facility] [address] [place] [address] Basophils/100 WBC (Bld) 0 % Normal 0-2 S [facility] Comment on above: Performed By: #### H EMDF, PT, BMP3M, PHOS3, MG3, CK3 #### [place] [address] [place], [place] #### VD25H #### [facility] [address] [place] [address] Cells counted 100 Normal [facility] Comment on above: Performed By: #### H EMDF, PT, BMP3M, PHOS3, MG3, CK3 #### [place] [address] [place], [place] #### VD25H #### [facility] [address] [place] [address] Phosphoruson 07-27-2018 Phosphate mass conc 3.0 mg/dL Normal 2.5-4.5 [facility] Comment on above: Performed By: #### H EMDF, PT, BMP3M, PHOS3, MG3, CK3 #### [address] [place], [place] #### VD25H #### [facility] [address] [place] [address] VL Venous Duplex US Lower Ex t Bilateralon 07-27-2018 VL Venous Duplex US Lower Ext Bilateral Patient Name: KATHYA HOOPER Ultrasound Exam Date/Time 07/27/2018 10:56:18 EDT Exam VL Venous Duplex US Lower Ext Bilateral Ordering Physician ETIENNE MARTÍNEZ JULIE Accession Number [id number] CPT4 Codes 30128 () Reason For Exam edema Report [facility] --- Lower Extremity Venous Duplex Report Patient Name: Kathya Hooper : 1955 Study Date: 07/27/2018 W (63yrs) Age: 63 Account: [id number] Gender: M Loc: T209 BP: Ordering: Yesenia Martínez Technologist: Ordering Physician: Yesenia Martínez Manager Of Network: Mary Man RVT Interpreting Physician: Ricardo Hall MD --- Location: [facility] --- INDICATIONS: Bilateral leg edema. [...] performed. The images were obtained using a Flexiant E9 vascular ultrasound machine. The study was [...] --+ Electronically signed by: Ricardo Hall MD [id number] Final Dictated: 07/27/2018 12:55 pm Dictating Physician: RICARDO HALL Signed Date and Time: 07/27/2018 12:55 pm Signed by: RICARDO HALL Normal [facility] Basic Metabolic Panelon 06-30 Calcium mass conc 7.9 mg/dL Low 8.4-10.4 [facility] Comment on above: Performed By: #### H EMDF, PT, BMP3M, PHOS3, MG3, CK3 #### [place] [address] [place] [address] #### VD25H #### [facility] [address] [place] [address] Anion gap molar conc 9 Normal [facility] Comment on above: Performed By: #### H EMDF, PT, BMP3M, PHOS3, MG3, CK3 #### [address] [address] [place], [place] #### VD25H #### [facility] [address] [place] [address] CO2 molar conc 24 mmol/L Normal 22-30 [facility] Comment on above: Performed By: #### H EMDF, PT, BMP3M, PHOS3, MG3, CK3 #### [address] [address] [place] [address] #### VD25H #### [facility] [address] [place] [address] Creatinine mass conc 0.54 mg/dL Normal 0.52-1.25 [facility] Comment on above: Performed By: #### H EMDF, PT, BMP3M, PHOS3, MG3, CK3 #### [address] [address] #### VD25H #### [facility] [address] [place] [address] GFR/1.73 sq M predicted among blacks MDRD vol rate/area (S/P/Bld) mL/min/{1.73_m2} Normal >60 [facility] Comment on above: Performed By: #### H EMDF, PT, BMP3M, PHOS3, MG3, CK3 #### [facility] [address] [facility], [place] #### VD25H #### [facility] [address] [place] [address] GFR/1.73 sq M predicted among non-blacks MDRD vol rate/area (S/P/Bld) mL/min/{1.73_m2} Normal >60 [facility] Comment on above: Result Comment: Sour ce- MDRD equation with creatinine calibration to IDMS(NKDEP) eGFR not recommended for drug dose adjustment Performed By: #### H EMDF, PT, BMP3M, PHOS3, MG3, CK3 #### [place] [address] [facility], [place] #### VD25H #### [facility] [address] [place] [address] Glucose mass conc 166 mg/dL High 70-100 [facility] Comment on above: Performed By: #### H EMDF, PT, BMP3M, PHOS3, MG3, CK3 #### [place] [address] [facility], [place] #### VD25H #### [facility] [address] [place] [address] Urea nitrogen mass conc 21 mg/dL High 7-20 S [facility] Comment on above: Performed By: #### H EMDF, PT, BMP3M, PHOS3, MG3, CK3 #### [facility] [address] [facility], [place] #### VD25H #### [facility] [address] [place] [address] Chloride molar conc 107 mmol/L Normal 98-107 [facility] Comment on above: Performed By: #### H EMDF, PT, BMP3M, PHOS3, MG3, CK3 #### [facility] [address] [facility] [address] #### VD25H #### [facility] [address] [place] [address] Potassium molar conc 3.7 mmol/L Normal 3.5-5.1 [facility] Comment on above: Performed By: #### H EMDF, PT, BMP3M, PHOS3, MG3, CK3 #### [facility] [address] [place] [address] #### VD25H #### [facility] [address] [place] [address] Sodium molar conc 140 mmol/L Normal 135-145 [facility] Comment on above: Performed By: #### H EMDF, PT, BMP3M, PHOS3, MG3, CK3 #### [facility] [address] [facility] [place] [address] #### VD25H #### [facility] [address] [place] [address] CR Chest Portableon 07-27-19 19 CR Chest Portable Patient Name: KATHYA HOOPER Diagnostic Radiology Exam Date/Time 07/26/2018 06:06:25 EDT Exam CR Chest Portable Ordering Physician MARIA EUGENIA PEREZ Accession Number [id number] CPT4 Codes 65932 () Reason For Exam ETT placement Report [...] and Time: 07/26/2018 9:15 Normal [facility] Glucose,Bedsideon 07-26-2018 Glucose mass conc 160 mg/dL High 70-100 [facility] Comment on above: Result Comment: Test performed by glucose meter. Results may be 10%-15% lower than serum/plasma values. (CLIA ID [id number]) Performed By: #### H EMDF, PT, BMP3M, PHOS3, MG3, CK3 #### [facility] [address] [place], [place] #### VD25H #### [facility] [address] [place] [address] Glucose mass conc 166 mg/dL High 70-100 [facility] Comment on above: Result Comment: Test performed by glucose meter. Results may be 10%-15% lower than serum/plasma values. (CLIA ID [id number]) Performed By: #### H EMDF, PT, BMP3M, PHOS3, MG3, CK3 #### [facility] [address] [place] [address] #### VD25H #### [facility] [employer] [address] [place] [address] Glucose mass conc 183 mg/dL High 70-100 [facility] Comment on above: Result Comment: Test performed by glucose meter. Results may be 10%-15% lower than serum/plasma values. (CLIA ID [id number]) Performed By: #### H EMDF, PT, BMP3M, PHOS3, MG3, CK3 #### [facility] [address] [place] [address] #### VD25H #### [facility] [address] [place] [address] Glucose mass conc 151 mg/dL High 70-100 [facility] Comment on above: Result Comment: Test performed by glucose meter. Results may be 10%-15% lower than serum/plasma values. (CLIA ID [id number]) Performed By: #### H EMDF, PT, BMP3M, PHOS3, MG3, CK3 #### [facility] [employer] [facility] [address] [place] [address] #### VD25H #### [facility] [address] [place] [address] Hemogram w/ Autodiffon 07-26 Erythrocyte distribution width Ratio (RBC) 13.7 % Normal 11.5-14.5 [facility] Comment on above: Performed By: #### H EMDF, PT, BMP3M, PHOS3, MG3, CK3 #### [address] #### VD25H #### [place] [address] [place] [address] Hematocrit Volume Fraction (Bld) 31.1 % Low 40.0-52.0 [facility] Comment on above: Performed By: #### H EMDF, PT, BMP3M, PHOS3, MG3, CK3 #### [address] #### VD25H #### [place] [address] [place] [address] Hemoglobin mass conc (Bld) 10.6 g/dL Low 13.0-18.0 [facility] Comment on above: Performed By: #### H EMDF, PT, BMP3M, PHOS3, MG3, CK3 #### [address] #### VD25H #### [place] [address] [place] [address] MCH Entitic mass (RBC) 29.2 pg Normal 26.0-34.0 [facility] Comment on above: Performed By: #### H EMDF, PT, BMP3M, PHOS3, MG3, CK3 #### [address] #### VD25H #### [place] [address] [place] [address] MCHC mass conc (RBC) 34.0 % Normal 32.0-36.0 [facility] Comment on above: Performed By: #### H EMDF, PT, BMP3M, PHOS3, MG3, CK3 #### [address] #### VD25H #### [facility] [address] [place] [address] MCV Entitic volume (RBC) 86.1 fL Normal 80.0-98.0 [facility] Comment on above: Performed By: #### H EMDF, PT, BMP3M, PHOS3, MG3, CK3 #### [place] [address] [place] #### VD25H #### [facility] [address] [place] [address] Platelet mean volume Entitic volume (Bld) 8.3 fL Normal 7.4-10.4 [facility] Comment on above: Performed By: #### H EMDF, PT, BMP3M, PHOS3, MG3, CK3 #### [place] [address] [place], [place] #### VD25H #### [facility] [address] [place] [address] Platelets #/vol (Bld) 364 10*3/uL Normal 140-440 [facility] Comment on above: Performed By: #### H EMDF, PT, BMP3M, PHOS3, MG3, CK3 #### [place] [address] [place] #### VD25H #### [facility] [address] [place] [address] RBC #/vol (Bld) 3.62 10*6/uL Low 4.40-5.90 [facility] Comment on above: Performed By: #### H EMDF, PT, BMP3M, PHOS3, MG3, CK3 #### [address] [place], [place] #### VD25H #### [facility] [address] [place] [address] WBC #/vol (Bld) 15.2 10*3/uL High 3.6-10.7 [facility] Comment on above: Performed By: #### H EMDF, PT, BMP3M, PHOS3, MG3, CK3 #### [place] [address] [place] #### VD25H #### [facility] [address] [place] [address] Magnesiumon 07-26-2018 Magnesium mass conc 2.0 mg/dL Normal 1.6-2.3 [facility] Comment on above: Performed By: #### H EMDF, PT, BMP3M, PHOS3, MG3, CK3 #### [place] [address] [place] #### VD25H #### [facility] [address] [place] [address] Manual Diffon 07-26-2018 Abs Neutrophile Cnt 12.8 10*3/uL High 2.2-8.2 [facility] Comment on above: Performed By: #### H EMDF, PT, BMP3M, PHOS3, MG3, CK3 #### [place] [address] [place] #### VD25H #### [facility] [address] [place] [address] Lymphocytes #/vol (Bld) 1.4 10*3/uL Normal 1.1-4.5 [facility] Comment on above: Performed By: #### H EMDF, PT, BMP3M, PHOS3, MG3, CK3 #### [address] #### VD25H #### [facility] [address] [place] [address] Lymphocytes/100 WBC (Bld) 9 % Low 20-40 [facility] Comment on above: Performed By: #### H EMDF, PT, BMP3M, PHOS3, MG3, CK3 #### [address] [place] #### VD25H #### [facility] [address] [place] [address] Monocytes #/vol (Bld) 1.1 10*3/uL Normal 0.2-1.1 [facility] Comment on above: Performed By: #### H EMDF, PT, BMP3M, PHOS3, MG3, CK3 #### [place] [address] [place] #### VD25H #### [facility] [address] [place] [address] Monocytes/100 WBC (Bld) 7 % Normal 2-10 S [facility] Comment on above: Performed By: #### H EMDF, PT, BMP3M, PHOS3, MG3, CK3 #### [place] [address] [place] #### VD25H #### [facility] [address] [place] [address] RBC morphology finding Nom (Bld) Normal Normal [facility] Comment on above: Performed By: #### H EMDF, PT, BMP3M, PHOS3, MG3, CK3 #### [address] #### VD25H #### [facility] [address] [place] [address] Seg Neutrophils 84 % High 40-80 [facility] Comment on above: Performed By: #### H EMDF, PT, BMP3M, PHOS3, MG3, CK3 #### [address] #### VD25H #### [facility] [address] [place] [address] Abs Baso Cnt 0.0 10*3/uL Normal 0.0-0.2 [facility] Comment on above: Performed By: #### H EMDF, PT, BMP3M, PHOS3, MG3, CK3 #### [address] #### VD25H #### [facility] [address] [place] [address] Bands 0 % Normal 0-3 [facility] Comment on above: Performed By: #### H EMDF, PT, BMP3M, PHOS3, MG3, CK3 #### [place] [address] [place] #### VD25H #### [facility] [address] [place] [address] Basophils/100 WBC (Bld) 0 % Normal 0-2 S [facility] Comment on above: Performed By: #### H EMDF, PT, BMP3M, PHOS3, MG3, CK3 #### [place] [address] [place] #### VD25H #### [facility] [address] [place] [address] Cells counted 100 Normal [facility] Comment on above: Performed By: #### H EMDF, PT, BMP3M, PHOS3, MG3, CK3 #### [address] #### VD25H #### [facility] [address] [place] [address] Eosinophils #/vol (Bld) 0.0 10*3/uL Normal 0.0-0.5 [facility] Comment on above: Performed By: #### H EMDF, PT, BMP3M, PHOS3, MG3, CK3 #### [address] [place] #### VD25H #### [facility] [address] [place] [address] Eosinophils/100 WBC (Bld) 0 % Low 1-6 [facility] Comment on above: Performed By: #### H EMDF, PT, BMP3M, PHOS3, MG3, CK3 #### [address] #### VD25H #### [facility] [address] [place] [address] Phosphoruson 07-26-2018 Phosphate mass conc 3.1 mg/dL Normal 2.5-4.5 [facility] Comment on above: Performed By: #### H EMDF, PT, BMP3M, PHOS3, MG3, CK3 #### [facility] [address] [place], [place] #### VD25H #### [facility] [address] [place] [address] Vancomycin Troughon 07-27-19 19 Vancomycin Trough 8.9 ug/mL Low 15.0-20.0 [facility] Comment on above: Result Comment: . Performed By: #### H EMDF, PT, BMP3M, PHOS3, MG3, CK3 #### [address] [place] #### VD25H #### [facility] [address] [place] [address] Arterial Blood Gaseson 07-25 CO2 molar conc 22.0 mmol/L Low 23.0-27.0 [facility] Comment on above: Performed By: #### H EMDF, PT, BMP3M, PHOS3, MG3, CK3 #### [address] #### VD25H #### [place] [address] [place] [address] HCO3 molar conc (Bld) 21.1 mmol/L Normal 21.0-25.0 [facility] Comment on above: Performed By: #### H EMDF, PT, BMP3M, PHOS3, MG3, CK3 #### [address] #### VD25H #### [facility] [address] [facility] [place] [address] Hemoglobin mass conc (Bld) 10.1 g/dL Normal [facility]Only [facility] Comment on above: Performed By: #### H EMDF, PT, BMP3M, PHOS3, MG3, CK3 #### [address] #### VD25H #### [place] [address] [place] [address] Oxygen ppres (Bld) 88.3 mm[Hg] Normal 80.0-100.0 [facility] Comment on above: Performed By: #### H EMDF, PT, BMP3M, PHOS3, MG3, CK3 #### [place] [address] [place] #### VD25H #### [facility] [address] [place] [address] Oxygen saturation in Blood 96.8 % Normal 95.0-100.0 [facility] Comment on above: Performed By: #### H EMDF, PT, BMP3M, PHOS3, MG3, CK3 #### [place] [address] [place] #### VD25H #### [facility] [address] [place] [address] pCO2 29.9 mm[Hg] Low 35.0-45.0 [facility] Comment on above: Performed By: #### H EMDF, PT, BMP3M, PHOS3, MG3, CK3 #### [place] [address] [place] #### VD25H #### [facility] [address] [place] [address] pH (Bld) 7.467 High 7.350-7.450 [facility] Comment on above: Performed By: #### H EMDF, PT, BMP3M, PHOS3, MG3, CK3 #### [address] #### VD25H #### [facility] [address] [place] [address] Std Base Excess -1.9 mmol/L Normal -3.0-3.0 [facility] Comment on above: Performed By: #### H EMDF, PT, BMP3M, PHOS3, MG3, CK3 #### [address] [place] #### VD25H #### [facility] [address] [place] [address] FIO2 .30 Normal [facility] Comment on above: Performed By: #### H EMDF, PT, BMP3M, PHOS3, MG3, CK3 #### [place] [address] [place] #### VD25H #### [facility] [address] [place] [address] Basic Metabolic Panelon 03-2 Calcium mass conc 8.1 mg/dL Low 8.4-10.4 [facility] Comment on above: Performed By: #### H EMDF, PT, BMP3M, PHOS3, MG3, CK3 #### [place] [address] [place] #### VD25H #### [facility] [address] [place] [address] Anion gap molar conc 8 Normal [facility] Comment on above: Performed By: #### H EMDF, PT, BMP3M, PHOS3, MG3, CK3 #### [address] #### VD25H #### [facility] [address] [place] [address] CO2 molar conc 24 mmol/L Normal 22-30 [facility] Comment on above: Performed By: #### H EMDF, PT, BMP3M, PHOS3, MG3, CK3 #### [address] #### VD25H #### [facility] [address] [place] [address] Creatinine mass conc 0.55 mg/dL Normal 0.52-1.25 [facility] Comment on above: Performed By: #### H EMDF, PT, BMP3M, PHOS3, MG3, CK3 #### [address] [place] #### VD25H #### [facility] [address] [place] [address] GFR/1.73 sq M predicted among blacks MDRD vol rate/area (S/P/Bld) mL/min/{1.73_m2} Normal >60 [facility] Comment on above: Performed By: #### H EMDF, PT, BMP3M, PHOS3, MG3, CK3 #### [facility] [address] [place] #### VD25H #### [facility] [address] [place] [address] GFR/1.73 sq M predicted among non-blacks MDRD vol rate/area (S/P/Bld) mL/min/{1.73_m2} Normal >60 [facility] Comment on above: Result Comment: Sour ce- MDRD equation with creatinine calibration to IDMS(NKDEP) eGFR not recommended for drug dose adjustment Performed By: #### H EMDF, PT, BMP3M, PHOS3, MG3, CK3 #### [address] [place] #### VD25H #### [facility] [address] [place] [address] Glucose mass conc 184 mg/dL High 70-100 [facility] Comment on above: Performed By: #### H EMDF, PT, BMP3M, PHOS3, MG3, CK3 #### [place] [address] [facility] [place] #### VD25H #### [facility] [address] [place] [address] Urea nitrogen mass conc 20 mg/dL Normal 7-20 S [facility] Comment on above: Performed By: #### H EMDF, PT, BMP3M, PHOS3, MG3, CK3 #### [facility] [address] [place] #### VD25H #### [facility] [address] [place] [address] Chloride molar conc 109 mmol/L High 98-107 [facility] Comment on above: Performed By: #### H EMDF, PT, BMP3M, PHOS3, MG3, CK3 #### [place] [address] [place], [place] #### VD25H #### [facility] [address] [place] [address] Potassium molar conc 4.0 mmol/L Normal 3.5-5.1 [facility] Comment on above: Performed By: #### H EMDF, PT, BMP3M, PHOS3, MG3, CK3 #### [facility] [address] [place] [address] #### VD25H #### [facility] [address] [place] [address] Sodium molar conc 141 mmol/L Normal 135-145 [facility] Comment on above: Performed By: #### H EMDF, PT, BMP3M, PHOS3, MG3, CK3 #### [facility] [address] [place] [address] #### VD25H #### [facility] [address] [place] [address] CR Chest Portableon 07-26-19 19 CR Chest Portable Patient Name: KATHYA HOOPER Diagnostic Radiology Exam Date/Time 07/25/2018 06:39:42 EDT Exam CR Chest Portable Ordering Physician MARIA EUGENIA PEREZ Accession Number [id number] CPT4 Codes 06059 () Reason For Exam ETT placement Report [...] and Time: 07/25/2018 7:45 Normal [facility] CULTURE URINEon 07-25-2018 CULTURE URINE 1 [...] 4 S Trimeth/Sulfa(CHRISTI) <= 20 S Normal [facility] Comment on above: Order Comment: Speci men Source Comment:Urine, clean catch Performed By: #### H EMDF, PT, BMP3M, PHOS3, MG3, CK3 #### [facility] [address] [place] [address] #### VD25H #### [employer] [facility] [address] [place] [address] Glucose,Bedsideon 07-25-2018 Glucose mass conc 140 mg/dL High 70-100 [employer] [facility] Comment on above: Result Comment: Test performed by glucose meter. Results may be 10%-15% lower than serum/plasma values. (CLIA ID [id number]) Performed By: #### H EMDF, PT, BMP3M, PHOS3, MG3, CK3 #### [facility] [address] [place], [place] #### VD25H #### [employer] [facility] [address] [place] [address] Glucose mass conc 158 mg/dL High 70-100 [facility] Comment on above: Result Comment: Test performed by glucose meter. Results may be 10%-15% lower than serum/plasma values. (CLIA ID [id number]) Performed By: #### H EMDF, PT, BMP3M, PHOS3, MG3, CK3 #### [facility] [address] [place] [address] #### VD25H #### [facility] [employer] [address] [place] [address] Glucose mass conc 172 mg/dL High 70-100 [facility] Comment on above: Result Comment: Test performed by glucose meter. Results may be 10%-15% lower than serum/plasma values. (CLIA ID [id number]) Performed By: #### H EMDF, PT, BMP3M, PHOS3, MG3, CK3 #### [facility] [address] [place] [address] #### VD25H #### [facility] [address] [place] [address] Glucose mass conc 169 mg/dL High 70-100 [facility] Comment on above: Result Comment: Test performed by glucose meter. Results may be 10%-15% lower than serum/plasma values. (CLIA ID [id number]) Performed By: #### H EMDF, PT, BMP3M, PHOS3, MG3, CK3 #### [facility] [address] [place] [address] #### VD25H #### [facility] [address] [place] [address] Glucose mass conc 165 mg/dL High 70-100 [facility] Comment on above: Result Comment: Test performed by glucose meter. Results may be 10%-15% lower than serum/plasma values. (CLIA ID [id number]) Performed By: #### H EMDF, PT, BMP3M, PHOS3, MG3, CK3 #### [address] #### VD25H #### [facility] [address] [place] [address] Hemogram w/ Autodiffon 07-25 Erythrocyte distribution width Ratio (RBC) 13.6 % Normal 11.5-14.5 [facility] Comment on above: Performed By: #### H EMDF, PT, BMP3M, PHOS3, MG3, CK3 #### [address] #### VD25H #### [facility] [address] [place] [address] Hematocrit Volume Fraction (Bld) 31.3 % Low 40.0-52.0 [facility] Comment on above: Performed By: #### H EMDF, PT, BMP3M, PHOS3, MG3, CK3 #### [address] #### VD25H #### [facility] [address] [place] [address] Hemoglobin mass conc (Bld) 10.6 g/dL Low 13.0-18.0 [facility] Comment on above: Performed By: #### H EMDF, PT, BMP3M, PHOS3, MG3, CK3 #### [address] #### VD25H #### [facility] [address] [place] [address] MCH Entitic mass (RBC) 29.4 pg Normal 26.0-34.0 [facility] Comment on above: Performed By: #### H EMDF, PT, BMP3M, PHOS3, MG3, CK3 #### [address] #### VD25H #### [facility] [address] [place] [address] MCHC mass conc (RBC) 33.8 % Normal 32.0-36.0 [facility] Comment on above: Performed By: #### H EMDF, PT, BMP3M, PHOS3, MG3, CK3 #### [address] #### VD25H #### [facility] [address] [place] [address] MCV Entitic volume (RBC) 86.9 fL Normal 80.0-98.0 [facility] Comment on above: Performed By: #### H EMDF, PT, BMP3M, PHOS3, MG3, CK3 #### [address] #### VD25H #### [facility] [address] [place] [address] Platelet mean volume Entitic volume (Bld) 8.3 fL Normal 7.4-10.4 [facility] Comment on above: Performed By: #### H EMDF, PT, BMP3M, PHOS3, MG3, CK3 #### [address] #### VD25H #### [facility] [address] [place] [address] Platelets #/vol (Bld) 360 10*3/uL Normal 140-440 [facility] Comment on above: Performed By: #### H EMDF, PT, BMP3M, PHOS3, MG3, CK3 #### [address] #### VD25H #### [facility] [address] [place] [address] RBC #/vol (Bld) 3.61 10*6/uL Low 4.40-5.90 [facility] Comment on above: Performed By: #### H EMDF, PT, BMP3M, PHOS3, MG3, CK3 #### [address] [place] #### VD25H #### [facility] [address] [place] [address] WBC #/vol (Bld) 14.7 10*3/uL High 3.6-10.7 [facility] Comment on above: Performed By: #### H EMDF, PT, BMP3M, PHOS3, MG3, CK3 #### [address] #### VD25H #### [facility] [address] [place] [address] Magnesiumon 07-25-2018 Magnesium mass conc 2.1 mg/dL Normal 1.6-2.3 [facility] Comment on above: Performed By: #### H EMDF, PT, BMP3M, PHOS3, MG3, CK3 #### [address] #### VD25H #### [facility] [address] [place] [address] Manual Diffon 07-25-2018 Abs Baso Cnt 0.1 10*3/uL Normal 0.0-0.2 [facility] Comment on above: Performed By: #### H EMDF, PT, BMP3M, PHOS3, MG3, CK3 #### [address] #### VD25H #### [place] [address] [place] [address] Abs Neutrophile Cnt 12.9 10*3/uL High 2.2-8.2 [facility] Comment on above: Performed By: #### H EMDF, PT, BMP3M, PHOS3, MG3, CK3 #### [address] #### VD25H #### [facility] [address] [place] [address] Anisocytosis Ql (Bld) Slight Normal [facility] Comment on above: Performed By: #### H EMDF, PT, BMP3M, PHOS3, MG3, CK3 #### [place] [address] [place] #### VD25H #### [facility] [address] [place] [address] Bands 4 % High 0-3 [facility] Comment on above: Performed By: #### H EMDF, PT, BMP3M, PHOS3, MG3, CK3 #### [place] [address] [place] #### VD25H #### [facility] [address] [place] [address] Basophils/100 WBC (Bld) 1 % Normal 0-2 S [facility] Comment on above: Performed By: #### H EMDF, PT, BMP3M, PHOS3, MG3, CK3 #### [address] [address] [place], [place] #### VD25H #### [facility] [address] [place] [address] Eosinophils #/vol (Bld) 0.6 10*3/uL High 0.0-0.5 [facility] Comment on above: Performed By: #### H EMDF, PT, BMP3M, PHOS3, MG3, CK3 #### [place] [address] [place] #### VD25H #### [facility] [address] [place] [address] Eosinophils/100 WBC (Bld) 4 % Normal 1-6 [facility] Comment on above: Performed By: #### H EMDF, PT, BMP3M, PHOS3, MG3, CK3 #### [place] [address] [place] #### VD25H #### [facility] [address] [place] [address] Lymphocytes #/vol (Bld) 0.1 10*3/uL Low 1.1-4.5 [facility] Comment on above: Performed By: #### H EMDF, PT, BMP3M, PHOS3, MG3, CK3 #### [place] [address] [place] #### VD25H #### [facility] [address] [place] [address] Lymphocytes/100 WBC (Bld) 1 % Low 20-40 [facility] Comment on above: Performed By: #### H EMDF, PT, BMP3M, PHOS3, MG3, CK3 #### [place] [address] [place] #### VD25H #### [facility] [address] [place] [address] Macrocytosis Slight Normal [facility] Comment on above: Performed By: #### H EMDF, PT, BMP3M, PHOS3, MG3, CK3 #### [address] #### VD25H #### [place] [address] [place] [address] Metamyelocytes 2 % Abnormal <1 [facility] Comment on above: Performed By: #### H EMDF, PT, BMP3M, PHOS3, MG3, CK3 #### [address] #### VD25H #### [facility] [address] [place] [address] Microcytosis Slight Normal [facility] Comment on above: Performed By: #### H EMDF, PT, BMP3M, PHOS3, MG3, CK3 #### [address] #### VD25H #### [facility] [address] [place] [address] Monocytes #/vol (Bld) 0.6 10*3/uL Normal 0.2-1.1 [facility] Comment on above: Performed By: #### H EMDF, PT, BMP3M, PHOS3, MG3, CK3 #### [address] #### VD25H #### [facility] [address] [place] [address] Monocytes/100 WBC (Bld) 4 % Normal 2-10 S [facility] Comment on above: Performed By: #### H EMDF, PT, BMP3M, PHOS3, MG3, CK3 #### [facility] [address] [place] #### VD25H #### [facility] [address] [place] [address] RBC morphology finding Nom (Bld) ABNORMAL Normal [facility] Comment on above: Performed By: #### H EMDF, PT, BMP3M, PHOS3, MG3, CK3 #### [place] [address] [place] #### VD25H #### [facility] [address] [place] [address] Seg Neutrophils 84 % High 40-80 [facility] Comment on above: Performed By: #### H EMDF, PT, BMP3M, PHOS3, MG3, CK3 #### [place] [address] [address] [facility] [place] #### VD25H #### [facility] [address] [place] [address] Cells counted 100 Normal [facility] Comment on above: Performed By: #### H EMDF, PT, BMP3M, PHOS3, MG3, CK3 #### [facility] [address] [place] #### VD25H #### [facility] [address] [place] [address] Phosphoruson 07-25-2018 Phosphate mass conc 2.7 mg/dL Normal 2.5-4.5 [facility] Comment on above: Performed By: #### H EMDF, PT, BMP3M, PHOS3, MG3, CK3 #### [place] [address] [facility] [place] #### VD25H #### [facility] [address] [place] [address] Triglycerideon 07-25-2018 Triglyceride mass conc 82 mg/dL Normal <150 [facility] Comment on above: Performed By: #### H EMDF, PT, BMP3M, PHOS3, MG3, CK3 #### [facility] [address] [place] #### VD25H #### [facility] [address] [place] [address] Basic Metabolic Panelon 06-30 Calcium mass conc 8.0 mg/dL Low 8.4-10.4 [facility] Comment on above: Performed By: #### H EMDF, PT, BMP3M, PHOS3, MG3, CK3 #### [place] [place] [address] [place], [place] #### VD25H #### [facility] [address] [place] [address] Anion gap molar conc 9 Normal [facility] Comment on above: Performed By: #### H EMDF, PT, BMP3M, PHOS3, MG3, CK3 #### [address] #### VD25H #### [facility] [address] [place] [address] CO2 molar conc 23 mmol/L Normal 22-30 [facility] Comment on above: Performed By: #### H EMDF, PT, BMP3M, PHOS3, MG3, CK3 #### [address] [place] [address] [place], [place] #### VD25H #### [facility] [address] [place] [address] Creatinine mass conc 0.71 mg/dL Normal 0.52-1.25 [facility] Comment on above: Performed By: #### H EMDF, PT, BMP3M, PHOS3, MG3, CK3 #### [place] [address] [facility] [place] #### VD25H #### [facility] [address] [place] [address] GFR/1.73 sq M predicted among blacks MDRD vol rate/area (S/P/Bld) mL/min/{1.73_m2} Normal >60 [facility] Comment on above: Performed By: #### H EMDF, PT, BMP3M, PHOS3, MG3, CK3 #### [facility] [address] [place] #### VD25H #### [facility] [address] [place] [address] GFR/1.73 sq M predicted among non-blacks MDRD vol rate/area (S/P/Bld) mL/min/{1.73_m2} Normal >60 [facility] Comment on above: Result Comment: Sour ce- MDRD equation with creatinine calibration to IDMS(NKDEP) eGFR not recommended for drug dose adjustment Performed By: #### H EMDF, PT, BMP3M, PHOS3, MG3, CK3 #### [place] [address] [place] #### VD25H #### [facility] [address] [place] [address] Glucose mass conc 160 mg/dL High 70-100 [facility] Comment on above: Performed By: #### H EMDF, PT, BMP3M, PHOS3, MG3, CK3 #### [address] #### VD25H #### [facility] [address] [place] [address] Urea nitrogen mass conc 28 mg/dL High 7-20 S [facility] Comment on above: Performed By: #### H EMDF, PT, BMP3M, PHOS3, MG3, CK3 #### [address] #### VD25H #### [facility] [address] [place] [address] Chloride molar conc 109 mmol/L High 98-107 [facility] Comment on above: Performed By: #### H EMDF, PT, BMP3M, PHOS3, MG3, CK3 #### [facility] [address] [place] [address] #### VD25H #### [facility] [address] [place] [address] Potassium molar conc 3.7 mmol/L Normal 3.5-5.1 [facility] Comment on above: Performed By: #### H EMDF, PT, BMP3M, PHOS3, MG3, CK3 #### [facility] [address] [facility] [address] #### VD25H #### [facility] [address] [place] [address] Sodium molar conc 141 mmol/L Normal 135-145 [facility] Comment on above: Performed By: #### H EMDF, PT, BMP3M, PHOS3, MG3, CK3 #### [facility] [address] [place] [address] #### VD25H #### [facility] [address] [place] [address] CR Chest Portableon 07-25-19 19 CR Chest Portable Patient Name: KATHYA HOOPER Diagnostic Radiology Exam Date/Time 07/24/2018 13:12:47 EDT Exam CR Chest Portable Ordering Physician DO WOLFF KATHRYN C Accession Number [id number] CPT4 Codes 82640 () Reason For Exam line placement Report [...] and Time: 07/24/2018 3:10 Normal [facility] CR Chest Portable Patient Name: KATHYA HOOPER Diagnostic Radiology Exam Date/Time 07/24/2018 07:11:26 EDT Exam CR Chest Portable Ordering Physician MARIA EUGENIA PEREZ Accession Number [id number] CPT4 Codes 84090 () Reason For Exam ETT placement Report [...] and Time: 07/24/2018 7:31 Normal [facility] CULT./ST. RESPIRATORYon 06-30 CULT./ST. RESPIRATORY CULT./ST. [...] 1 S Trimeth/Sulfa(CHRISTI) <= 20 S Normal [facility] Comment on above: Order Comment: Speci men Source Comment:Endotracheal Performed By: #### H EMDF, PT, BMP3M, PHOS3, MG3, CK3 #### [facility] [address] [place] [address] #### VD25H #### [facility] [address] [place] [address] CULTURE URINEon 07-24-2018 CULTURE URINE 1 Organism [...] Trimeth/Sulfa(CHRISTI) <= 20 S Normal [facility] Comment on above: Order Comment: Speci men Source Comment:Urine, clean catch Performed By: #### H EMDF, PT, BMP3M, PHOS3, MG3, CK3 #### [facility] [address] [place] [address] #### VD25H #### [facility] [address] [place] [address] Creatinine, Ur Randomon - Creatinine, Ur Random 49.5 mg/dL Normal No Range [facility] Comment on above: Performed By: #### H EMDF, PT, BMP3M, PHOS3, MG3, CK3 #### [facility] [address] [place] [address] #### VD25H #### [facility] [address] [place] [address] Glucose,Bedsideon 07-24-2018 Glucose mass conc 124 mg/dL High 70-100 [facility] Comment on above: Result Comment: Test performed by glucose meter. Results may be 10%-15% lower than serum/plasma values. (CLIA ID [id number]) Performed By: #### H EMDF, PT, BMP3M, PHOS3, MG3, CK3 #### [facility] [address] [place], [place] #### VD25H #### [facility] [address] [place] [address] Glucose mass conc 152 mg/dL High 70-100 [facility] Comment on above: Result Comment: Test performed by glucose meter. Results may be 10%-15% lower than serum/plasma values. (CLIA ID [id number]) Performed By: #### H EMDF, PT, BMP3M, PHOS3, MG3, CK3 #### [facility] [address] [place] [address] #### VD25H #### [facility] [address] [place] [address] Glucose mass conc 149 mg/dL High 70-100 [facility] Comment on above: Result Comment: Test performed by glucose meter. Results may be 10%-15% lower than serum/plasma values. (CLIA ID [id number]) Performed By: #### H EMDF, PT, BMP3M, PHOS3, MG3, CK3 #### [facility] [address] [place] #### VD25H #### [facility] [address] [place] [address] Hemogram w/ Autodiffon 07-24 Erythrocyte distribution width Ratio (RBC) 13.7 % Normal 11.5-14.5 [facility] Comment on above: Performed By: #### H EMDF, PT, BMP3M, PHOS3, MG3, CK3 #### [employer] [facility] [place], [place] #### VD25H #### [facility] [address] [place] [address] Hematocrit Volume Fraction (Bld) 31.4 % Low 40.0-52.0 [facility] Comment on above: Performed By: #### H EMDF, PT, BMP3M, PHOS3, MG3, CK3 #### [address] #### VD25H #### [facility] [address] [place] [address] Hemoglobin mass conc (Bld) 10.7 g/dL Low 13.0-18.0 [facility] Comment on above: Performed By: #### H EMDF, PT, BMP3M, PHOS3, MG3, CK3 #### [address] #### VD25H #### [place] [address] [place] [address] MCH Entitic mass (RBC) 29.4 pg Normal 26.0-34.0 [facility] Comment on above: Performed By: #### H EMDF, PT, BMP3M, PHOS3, MG3, CK3 #### [address] #### VD25H #### [place] [address] [place] [address] MCHC mass conc (RBC) 33.9 % Normal 32.0-36.0 [facility] Comment on above: Performed By: #### H EMDF, PT, BMP3M, PHOS3, MG3, CK3 #### [address] #### VD25H #### [place] [address] [place] [address] MCV Entitic volume (RBC) 86.8 fL Normal 80.0-98.0 [facility] Comment on above: Performed By: #### H EMDF, PT, BMP3M, PHOS3, MG3, CK3 #### [address] #### VD25H #### [facility] [address] [place] [address] Platelet mean volume Entitic volume (Bld) 8.6 fL Normal 7.4-10.4 [facility] Comment on above: Performed By: #### H EMDF, PT, BMP3M, PHOS3, MG3, CK3 #### [address] #### VD25H #### [facility] [address] [place] [address] Platelets #/vol (Bld) 304 10*3/uL Normal 140-440 [facility] Comment on above: Performed By: #### H EMDF, PT, BMP3M, PHOS3, MG3, CK3 #### [address] #### VD25H #### [place] [address] [place] [address] RBC #/vol (Bld) 3.62 10*6/uL Low 4.40-5.90 [facility] Comment on above: Performed By: #### H EMDF, PT, BMP3M, PHOS3, MG3, CK3 #### [address] #### VD25H #### [place] [address] [place] [address] WBC #/vol (Bld) 14.0 10*3/uL High 3.6-10.7 [facility] Comment on above: Performed By: #### H EMDF, PT, BMP3M, PHOS3, MG3, CK3 #### [address] #### VD25H #### [place] [address] [place] [address] Magnesiumon 07-24-2018 Magnesium mass conc 2.2 mg/dL Normal 1.6-2.3 [facility] Comment on above: Performed By: #### H EMDF, PT, BMP3M, PHOS3, MG3, CK3 #### [place] [address] [place] #### VD25H #### [facility] [address] [place] [address] Manual Diffon 07-24-2018 Abs Baso Cnt 0.0 10*3/uL Normal 0.0-0.2 [facility] Comment on above: Performed By: #### H EMDF, PT, BMP3M, PHOS3, MG3, CK3 #### [address] [place], [place] #### VD25H #### [facility] [address] [place] [address] Abs Neutrophile Cnt 12.2 10*3/uL High 2.2-8.2 [facility] Comment on above: Performed By: #### H EMDF, PT, BMP3M, PHOS3, MG3, CK3 #### [address] #### VD25H #### [facility] [address] [place] [address] Eosinophils #/vol (Bld) 0.4 10*3/uL Normal 0.0-0.5 [facility] Comment on above: Performed By: #### H EMDF, PT, BMP3M, PHOS3, MG3, CK3 #### [address] #### VD25H #### [facility] [address] [place] [address] Eosinophils/100 WBC (Bld) 3 % Normal 1-6 [facility] Comment on above: Performed By: #### H EMDF, PT, BMP3M, PHOS3, MG3, CK3 #### [address] #### VD25H #### [facility] [address] [facility] [place] [address] Lymphocytes #/vol (Bld) 1.0 10*3/uL Low 1.1-4.5 [facility] Comment on above: Performed By: #### H EMDF, PT, BMP3M, PHOS3, MG3, CK3 #### [place] [address] [place] #### VD25H #### [facility] [address] [place] [address] Lymphocytes/100 WBC (Bld) 7 % Low 20-40 [facility] Comment on above: Performed By: #### H EMDF, PT, BMP3M, PHOS3, MG3, CK3 #### [place] [address] [place] #### VD25H #### [facility] [address] [place] [address] Monocytes #/vol (Bld) 0.4 10*3/uL Normal 0.2-1.1 [facility] Comment on above: Performed By: #### H EMDF, PT, BMP3M, PHOS3, MG3, CK3 #### [place] [address] [place] #### VD25H #### [facility] [address] [place] [address] Monocytes/100 WBC (Bld) 3 % Normal 2-10 S [facility] Comment on above: Performed By: #### H EMDF, PT, BMP3M, PHOS3, MG3, CK3 #### [address] [address] [place], [place] #### VD25H #### [facility] [address] [place] [address] RBC morphology finding Nom (Bld) Normal Normal [facility] Comment on above: Performed By: #### H EMDF, PT, BMP3M, PHOS3, MG3, CK3 #### [address] [place] #### VD25H #### [facility] [address] [place] [address] Seg Neutrophils 87 % High 40-80 [facility] Comment on above: Performed By: #### H EMDF, PT, BMP3M, PHOS3, MG3, CK3 #### [facility] [address] [place] #### VD25H #### [facility] [address] [place] [address] Bands 0 % Normal 0-3 [facility] Comment on above: Performed By: #### H EMDF, PT, BMP3M, PHOS3, MG3, CK3 #### [place] [address] [place] #### VD25H #### [facility] [address] [place] [address] Basophils/100 WBC (Bld) 0 % Normal 0-2 S [facility] Comment on above: Performed By: #### H EMDF, PT, BMP3M, PHOS3, MG3, CK3 #### [address] #### VD25H #### [facility] [address] [place] [address] Cells counted 100 Normal [facility] Comment on above: Performed By: #### H EMDF, PT, BMP3M, PHOS3, MG3, CK3 #### [place] [address] [place] #### VD25H #### [facility] [address] [place] [address] Phosphoruson 07-24-2018 Phosphate mass conc 2.7 mg/dL Normal 2.5-4.5 [facility] Comment on above: Performed By: #### H EMDF, PT, BMP3M, PHOS3, MG3, CK3 #### [address] [place] #### VD25H #### [facility] [address] [place] [address] Triglycerideon 07-24-2018 Triglyceride mass conc 78 mg/dL Normal <150 [facility] Comment on above: Performed By: #### H EMDF, PT, BMP3M, PHOS3, MG3, CK3 #### [place] [address] [place] #### VD25H #### [facility] [address] [place] [address] Urea Nitrogen,Ur Randomon Urea nitrogen mass conc 1199 mg/dL Normal No Range S [facility] Comment on above: Performed By: #### H EMDF, PT, BMP3M, PHOS3, MG3, CK3 #### [place] [place] #### VD25H #### [facility] [address] [place] [address] Add on test from HISon 07-23 Add on test from HIS Accepted Normal [facility] Comment on above: Result Comment: Spec imen available & acceptable for analysis. Performed By: #### H EMDF, PT, BMP3M, PHOS3, MG3, CK3 #### [address] [address] [place], [place] #### VD25H #### [facility] [address] [place] [address] Arterial Blood Gaseson 07-23 CO2 molar conc 23.0 mmol/L Normal 23.0-27.0 [facility] Comment on above: Performed By: #### H EMDF, PT, BMP3M, PHOS3, MG3, CK3 #### [place] [place] #### VD25H #### [facility] [address] [place] [address] HCO3 molar conc (Bld) 22.0 mmol/L Normal 21.0-25.0 [facility] Comment on above: Performed By: #### H EMDF, PT, BMP3M, PHOS3, MG3, CK3 #### [place] [place] #### VD25H #### [facility] [address] [place] [address] Hemoglobin mass conc (Bld) 10.9 g/dL Normal ScreenOnly [facility] Comment on above: Performed By: #### H EMDF, PT, BMP3M, PHOS3, MG3, CK3 #### [place] [place] #### VD25H #### [facility] [address] [place] [address] Oxygen ppres (Bld) 102.4 mm[Hg] High 80.0-100.0 [facility] Comment on above: Performed By: #### H EMDF, PT, BMP3M, PHOS3, MG3, CK3 #### [place] [place] #### VD25H #### [facility] [address] [place] [address] Oxygen saturation in Blood 97.7 % Normal 95.0-100.0 [facility] Comment on above: Performed By: #### H EMDF, PT, BMP3M, PHOS3, MG3, CK3 #### [address] [address] [place], [place] #### VD25H #### [facility] [address] [place] [address] pCO2 34.4 mm[Hg] Low 35.0-45.0 [facility] Comment on above: Performed By: #### H EMDF, PT, BMP3M, PHOS3, MG3, CK3 #### [address] #### VD25H #### [facility] [address] [place] [address] pH (Bld) 7.423 Normal 7.350-7.450 [facility] Comment on above: Performed By: #### H EMDF, PT, BMP3M, PHOS3, MG3, CK3 #### [place] [address] [place] #### VD25H #### [facility] [address] [place] [address] Std Base Excess -1.9 mmol/L Normal -3.0-3.0 [facility] Comment on above: Performed By: #### H EMDF, PT, BMP3M, PHOS3, MG3, CK3 #### [place] [address] [place] #### VD25H #### [facility] [address] [place] [address] FIO2 .30 Normal [facility] Comment on above: Performed By: #### H EMDF, PT, BMP3M, PHOS3, MG3, CK3 #### [place] [place] #### VD25H #### [facility] [address] [place] [address] Basic Metabolic Panelon 06-30 Anion gap molar conc 12 Normal [facility] Comment on above: Performed By: #### H EMDF, PT, BMP3M, PHOS3, MG3, CK3 #### [address] [address] [place], [place] #### VD25H #### [facility] [address] [facility] [place] [address] Calcium mass conc 7.5 mg/dL Low 8.4-10.4 [facility] Comment on above: Performed By: #### H EMDF, PT, BMP3M, PHOS3, MG3, CK3 #### [place] [address] [place] #### VD25H #### [facility] [address] [place] [address] CO2 molar conc 23 mmol/L Normal 22-30 [facility] Comment on above: Performed By: #### H EMDF, PT, BMP3M, PHOS3, MG3, CK3 #### [address] #### VD25H #### [facility] [address] [place] [address] Glucose mass conc 148 mg/dL High 70-100 [facility] System Comment on above: Performed By: #### H EMDF, PT, BMP3M, PHOS3, MG3, CK3 #### [facility] [address] [place], [place] #### VD25H #### [facility] [address] [place] [address] Urea nitrogen mass conc 82 mg/dL High 7-20 S [facility] Comment on above: Performed By: #### H EMDF, PT, BMP3M, PHOS3, MG3, CK3 #### [facility] [address] [place], [place] #### VD25H #### [facility] [address] [place] [address] Creatinine mass conc 3.01 mg/dL High 0.52-1.25 [facility] Comment on above: Performed By: #### H EMDF, PT, BMP3M, PHOS3, MG3, CK3 #### [address] #### VD25H #### [facility] [address] [place] [address] GFR/1.73 sq M predicted among blacks MDRD vol rate/area (S/P/Bld) 25.8 mL/min/{1.73_m2} Normal >60 [facility] Comment on above: Performed By: #### H EMDF, PT, BMP3M, PHOS3, MG3, CK3 #### [address] #### VD25H #### [facility] [address] [place] [address] GFR/1.73 sq M predicted among non-blacks MDRD vol rate/area (S/P/Bld) 21.3 mL/min/{1.73_m2} Normal >60 [facility] Comment on above: Result Comment: Sour ce- MDRD equation with creatinine calibration to IDMS(NKDEP) eGFR not recommended for drug dose adjustment Performed By: #### H EMDF, PT, BMP3M, PHOS3, MG3, CK3 #### [place] [address] [place], [place] #### VD25 #### [facility] [address] [place] [address] Chloride molar conc 106 mmol/L Normal 98-107 [facility] Comment on above: Performed By: #### H EMDF, PT, BMP3M, PHOS3, MG3, CK3 #### [facility] [address] [place] [address] #### VD25H #### [facility] [address] [place] [address] Potassium molar conc 4.2 mmol/L Normal 3.5-5.1 [facility] Comment on above: Performed By: #### H EMDF, PT, BMP3M, PHOS3, MG3, CK3 #### [facility] [address] [place] [address] #### VD25H #### [facility] [address] [place] [address] Sodium molar conc 141 mmol/L Normal 135-145 [facility] Comment on above: Performed By: #### H EMDF, PT, BMP3M, PHOS3, MG3, CK3 #### [facility] [address] [place] [address] #### VD25H #### [facility] [address] [place] [address] CR Chest Portableon 07-24-19 19 CR Chest Portable Patient Name: KATHYA HOOPER Diagnostic Radiology Exam Date/Time 07/23/2018 07:06:03 EDT Exam CR Chest Portable Ordering Physician MARIA EUGENIA PEREZ Accession Number [id number] CPT4 Codes 10279 () Reason For Exam ETT placement Report [...] and Time: 07/23/2018 7:58 Normal [facility] Creatinine, Ur Randomon 06-30 Creatinine, Ur Random 56.8 mg/dL Normal No Range [facility] Comment on above: Performed By: #### H EMDF, PT, BMP3M, PHOS3, MG3, CK3 #### [address] #### VD25H #### [facility] [address] [place] [address] Glucose,Bedsideon 07-23-2018 Glucose mass conc 116 mg/dL High 70-100 [facility] Comment on above: Result Comment: Test performed by glucose meter. Results may be 10%-15% lower than serum/plasma values. (CLIA ID [id number]) Performed By: #### H EMDF, PT, BMP3M, PHOS3, MG3, CK3 #### [facility] [address] [place], [place] #### VD25H #### [facility] [address] [place] [address] Glucose mass conc 139 mg/dL High 70-100 [facility] Comment on above: Result Comment: Test performed by glucose meter. Results may be 10%-15% lower than serum/plasma values. (CLIA ID [id number]) Performed By: #### H EMDF, PT, BMP3M, PHOS3, MG3, CK3 #### [facility] [address] [place], [place] #### VD25H #### [facility] [address] [place] [address] Glucose mass conc 140 mg/dL High 70-100 [facility] Comment on above: Result Comment: Test performed by glucose meter. Results may be 10%-15% lower than serum/plasma values. (CLIA ID [id number]) Performed By: #### H EMDF, PT, BMP3M, PHOS3, MG3, CK3 #### [address] #### VD25H #### [facility] [address] [place] [address] Glucose mass conc 140 mg/dL High 70-100 [facility] Comment on above: Result Comment: Test performed by glucose meter. Results may be 10%-15% lower than serum/plasma values. (CLIA ID [id number]) Performed By: #### H EMDF, PT, BMP3M, PHOS3, MG3, CK3 #### [address] #### VD25H #### [facility] [address] [facility] [place] [address] Hemogram w/ Autodiffon 07-23 Abs Baso Cnt 0.0 10*3/uL Normal 0.0-0.2 [facility] Comment on above: Performed By: #### H EMDF, PT, BMP3M, PHOS3, MG3, CK3 #### [address] #### VD25H #### [facility] [address] [place] [address] Abs Neutrophile Cnt 16.2 10*3/uL High 1.8-7.0 [facility] Comment on above: Performed By: #### H EMDF, PT, BMP3M, PHOS3, MG3, CK3 #### [address] #### VD25H #### [facility] [address] [place] [address] Basophils/100 WBC (Bld) 0.3 % Normal 0.0-2.0 S [facility] Comment on above: Performed By: #### H EMDF, PT, BMP3M, PHOS3, MG3, CK3 #### [facility] [address], [place] #### VD25H #### [facility] [address] [place] [address] Eosinophils #/vol (Bld) 0.2 10*3/uL Normal 0.0-0.5 [facility] Comment on above: Performed By: #### H EMDF, PT, BMP3M, PHOS3, MG3, CK3 #### [address] #### VD25H #### [facility] [address] [place] [address] Eosinophils/100 WBC (Bld) 1.2 % Normal 1.0-6.0 [facility] Comment on above: Performed By: #### H EMDF, PT, BMP3M, PHOS3, MG3, CK3 #### [address] #### VD25H #### [facility] [address] [place] [address] Erythrocyte distribution width Ratio (RBC) 13.9 % Normal 11.5-14.5 [facility] Comment on above: Performed By: #### H EMDF, PT, BMP3M, PHOS3, MG3, CK3 #### [address] #### VD25H #### [facility] [address] [place] [address] Granulocytes/100 WBC (Bld) 86.8 % High 40.0-80.0 [facility] Comment on above: Performed By: #### H EMDF, PT, BMP3M, PHOS3, MG3, CK3 #### [address] #### VD25H #### [facility] [address] [place] [address] Hematocrit Volume Fraction (Bld) 26.7 % Low 40.0-52.0 [facility] Comment on above: Performed By: #### H EMDF, PT, BMP3M, PHOS3, MG3, CK3 #### [address] #### VD25H #### [facility] [address] [place] [address] Hemoglobin mass conc (Bld) 8.9 g/dL Low 13.0-18.0 [facility] Comment on above: Performed By: #### H EMDF, PT, BMP3M, PHOS3, MG3, CK3 #### [address] #### VD25H #### [facility] [address] [place] [address] Lymphocytes #/vol (Bld) 1.2 10*3/uL Normal 1.0-4.3 [facility] Comment on above: Performed By: #### H EMDF, PT, BMP3M, PHOS3, MG3, CK3 #### [address] #### VD25H #### [facility] [address] [place] [address] Lymphocytes/100 WBC (Bld) 6.6 % Low 20.0-40.0 [facility] Comment on above: Performed By: #### H EMDF, PT, BMP3M, PHOS3, MG3, CK3 #### [address] #### VD25H #### [facility] [address] [place] [address] MCH Entitic mass (RBC) 29.5 pg Normal 26.0-34.0 [facility] Comment on above: Performed By: #### H EMDF, PT, BMP3M, PHOS3, MG3, CK3 #### [address] #### VD25H #### [facility] [address] [place] [address] MCHC mass conc (RBC) 33.5 % Normal 32.0-36.0 [facility] Comment on above: Performed By: #### H EMDF, PT, BMP3M, PHOS3, MG3, CK3 #### [address] [place], [place] #### VD25H #### [facility] [address] [place] [address] MCV Entitic volume (RBC) 87.9 fL Normal 80.0-98.0 [facility] Comment on above: Performed By: #### H EMDF, PT, BMP3M, PHOS3, MG3, CK3 #### [address] #### VD25H #### [facility] [address] [place] [address] Monocytes #/vol (Bld) 1.0 10*3/uL High 0.0-0.8 [facility] Comment on above: Performed By: #### H EMDF, PT, BMP3M, PHOS3, MG3, CK3 #### [address] #### VD25H #### [facility] [address] [place] [address] Monocytes/100 WBC (Bld) 5.1 % Normal 2.0-10.0 S [facility] Comment on above: Performed By: #### H EMDF, PT, BMP3M, PHOS3, MG3, CK3 #### [address] #### VD25H #### [facility] [address] [place] [address] Platelet mean volume Entitic volume (Bld) 8.2 fL Normal 7.4-10.4 [facility] Comment on above: Performed By: #### H EMDF, PT, BMP3M, PHOS3, MG3, CK3 #### [address] #### VD25H #### [facility] [address] [place] [address] Platelets #/vol (Bld) 294 10*3/uL Normal 140-440 [facility] Comment on above: Performed By: #### H EMDF, PT, BMP3M, PHOS3, MG3, CK3 #### [facility] [address] [place], [place] #### VD25H #### [facility] [address] [place] [address] RBC #/vol (Bld) 3.03 10*6/uL Low 4.40-5.90 [facility] Comment on above: Performed By: #### H EMDF, PT, BMP3M, PHOS3, MG3, CK3 #### [address] #### VD25H #### [facility] [address] [place] [facility] WBC #/vol (Bld) 18.7 10*3/uL High 3.6-10.7 [facility] Comment on above: Performed By: #### H EMDF, PT, BMP3M, PHOS3, MG3, CK3 #### [address] #### VD25H #### [facility] [address] [place] [address] LDHon 07-23-2018 LDH 342 U/L High 65-175 [facility] Comment on above: Performed By: #### H EMDF, PT, BMP3M, PHOS3, MG3, CK3 #### [address] #### VD25H #### [facility] [address] [place] [address] Magnesiumon 07-23-2018 Magnesium mass conc 2.5 mg/dL High 1.6-2.3 [facility] Comment on above: Performed By: #### H EMDF, PT, BMP3M, PHOS3, MG3, CK3 #### [address] #### VD25H #### [facility] [address] [place] [address] Phosphoruson 07-23-2018 Phosphate mass conc 4.5 mg/dL Normal 2.5-4.5 [facility] Comment on above: Performed By: #### H EMDF, PT, BMP3M, PHOS3, MG3, CK3 #### [place] [address] [place], [place] #### VD25H #### [facility] [address] [place] [address] Protein, Total Body Fluidon 07-23-2018 Protein,Total-Body Fld 2.7 g/dL Normal No Range [facility] Comment on above: Performed By: #### H EMDF, PT, BMP3M, PHOS3, MG3, CK3 #### [place] [address] [place], [place] #### VD25H #### [facility] [address] [place] [address] Triglycerideon 07-23-2018 Triglyceride mass conc 63 mg/dL Normal <150 [facility] Comment on above: Performed By: #### H EMDF, PT, BMP3M, PHOS3, MG3, CK3 #### [place] [address] [place] #### VD25H #### [facility] [address] [place] [address] Urea Nitrogen,Ur Randomon Urea nitrogen mass conc 677 mg/dL Normal No Range S [facility] Comment on above: Performed By: #### H EMDF, PT, BMP3M, PHOS3, MG3, CK3 #### [place] [address] [place] #### VD25H #### [facility] [address] [place] [address] Urinalysis,Macroon 9 Appearance Nom (U) cloudy Normal Clear [facility] Comment on above: Performed By: #### H EMDF, PT, BMP3M, PHOS3, MG3, CK3 #### [facility] [address] [facility] [place] #### VD25H #### [facility] [address] [place] [address] Bilirubin,Ur Negative Normal Negative [facility] Comment on above: Performed By: #### H EMDF, PT, BMP3M, PHOS3, MG3, CK3 #### [place] [address] [facility] #### VD25H #### [facility] [address] [place] [address] Color Nom (U) dk.yel Normal Lt. Yellow [facility] Comment on above: Performed By: #### H EMDF, PT, BMP3M, PHOS3, MG3, CK3 #### [place] [address] [facility] #### VD25H #### [facility] [address] [place] [address] Glucose Ql (U) NORM Normal Negative [facility] Comment on above: Performed By: #### H EMDF, PT, BMP3M, PHOS3, MG3, CK3 #### [place] [address] [facility] #### VD25H #### [facility] [address] [place] [address] Ketone,Urine Negative Normal Negative [facility] Comment on above: Performed By: #### H EMDF, PT, BMP3M, PHOS3, MG3, CK3 #### [place] [address] [facility] #### VD25H #### [facility] [address] [place] [address] Nitrite Ql (U) Negative Normal Negative [facility] Comment on above: Performed By: #### H EMDF, PT, BMP3M, PHOS3, MG3, CK3 #### [place] [address] [facility] #### VD25H #### [facility] [address] [place] [address] Occult Blood,Ur 250 {RBC}/uL Normal Negative [facility] Comment on above: Performed By: #### H EMDF, PT, BMP3M, PHOS3, MG3, CK3 #### [place] [address] [place] #### VD25H #### [facility] [address] [place] [address] pH (U) 5.0 Normal 5.0-8.0 [facility] Comment on above: Performed By: #### H EMDF, PT, BMP3M, PHOS3, MG3, CK3 #### [address] [place], [place] #### VD25H #### [facility] [address] [place] [address] Protein mass conc (U) 75 mg/dL Normal Negative [facility] Comment on above: Performed By: #### H EMDF, PT, BMP3M, PHOS3, MG3, CK3 #### [address] [place], [place] #### VD25H #### [facility] [address] [place] [address] Specific [place],Urine 1.015 Normal 1.005-1.030 S [facility] Comment on above: Performed By: #### H EMDF, PT, BMP3M, PHOS3, MG3, CK3 #### [address] #### VD25H #### [facility] [address] [place] [address] Urobilinogen Qn (U) NORM Normal 0-1 [facility] Comment on above: Performed By: #### H EMDF, PT, BMP3M, PHOS3, MG3, CK3 #### [address] #### VD25H #### [facility] [address] [place] [address] WBC #/vol (Bld) 2 + Normal Negative [facility] Comment on above: Performed By: #### H EMDF, PT, BMP3M, PHOS3, MG3, CK3 #### [address] #### VD25H #### [facility] [address] [place] [address] Urinalysis,Microscopicon Bacteria LM.HPF #/area (Urine sed) Moderate (6-50) Normal Negative [facility] Comment on above: Performed By: #### H EMDF, PT, BMP3M, PHOS3, MG3, CK3 #### [address] #### VD25H #### [place] [address] [place] [address] Epithelial cells LM.HPF #/area (Urine sed) 0 - 2 Normal 3-5 [facility] Comment on above: Performed By: #### H EMDF, PT, BMP3M, PHOS3, MG3, CK3 #### [address] #### VD25H #### [facility] [address] [place] [address] RBC LM.HPF #/area (Urine sed) /[HPF] Normal 0-2 [facility] Comment on above: Performed By: #### H EMDF, PT, BMP3M, PHOS3, MG3, CK3 #### [address] #### VD25H #### [facility] [address] [place] [address] Volume,Urine 8-12 ml Normal [facility] Comment on above: Performed By: #### H EMDF, PT, BMP3M, PHOS3, MG3, CK3 #### [address] #### VD25H #### [facility] [address] [place] [address] WBC LM.HPF #/area (Urine sed) 26 - 50 Normal 0-5 [facility] Comment on above: Performed By: #### H EMDF, PT, BMP3M, PHOS3, MG3, CK3 #### [facility] [address] [place] [address] #### VD25H #### [facility] [address] [place] [address] VL Venous Duplex US Lower Ex t Bilateralon 07-23-2018 VL Venous Duplex US Lower Ext Bilateral Patient Name: KATHYA HOOPER Ultrasound Exam Date/Time 07/23/2018 11:16:11 EDT Exam VL Venous Duplex US Lower Ext Bilateral Ordering Physician ETIENNE MARTÍNEZ JULIE Accession Number [id number] CPT4 Codes 66230 () Reason For Exam edema Report [facility] --- Lower Extremity Venous Duplex Report Patient Name: Kathya Hooper : 1955 Study Date: 07/23/2018 W (63yrs) Age: 63 Account: [id number] Gender: M Loc: T209 BP: Ordering: Yesenia Martínez Technologist: Ordering Physician: Yesenia Martínez Manager Of Network: León Chaidez RVT, [facility] Interpreting Physician: Vamsi York MD --- Location: [facility] --- INDICATIONS: Edema. bilateral calf [...] performed. The images were obtained using a Flexiant E9 vascular ultrasound machine. --- VENOUS FLOW [...] --+ Electronically signed by: Vamsi York MD [id number] Final Dictated: 07/23/2018 3:00 pm Dictating Physician: VAMSI YORK Signed Date and Time: 07/23/2018 3:00 pm Signed by: TYRAKAVINVAMSI Normal [facility] Vancomycin Troughon 07-24-19 Vancomycin Trough 10.8 ug/mL Low 15.0-20.0 [facility] Comment on above: Result Comment: . Performed By: #### H EMDF, PT, BMP3M, PHOS3, MG3, CK3 #### [place] [address] [place], [place] #### VD25H #### [facility] [address] [place] [address] Basic Metabolic Panelon 06-30 Calcium mass conc 7.9 mg/dL Low 8.4-10.4 [facility] Comment on above: Performed By: #### H EMDF, PT, BMP3M, PHOS3, MG3, CK3 #### [place] [address] [place], [place] #### VD25H #### [facility] [address] [place] [address] Anion gap molar conc 11 Normal [facility] Comment on above: Performed By: #### H EMDF, PT, BMP3M, PHOS3, MG3, CK3 #### [place] [address] [place], [place] #### VD25H #### [facility] [address] [place] [address] CO2 molar conc 28 mmol/L Normal 22-30 [facility] Comment on above: Performed By: #### H EMDF, PT, BMP3M, PHOS3, MG3, CK3 #### [place] [address] [place], [place] #### VD25H #### [facility] [address] [place] [address] Glucose mass conc 134 mg/dL High 70-100 [facility] Comment on above: Performed By: #### H EMDF, PT, BMP3M, PHOS3, MG3, CK3 #### [place] [address] [place] #### VD25H #### [facility] [address] [place] [address] Urea nitrogen mass conc 51 mg/dL High 7-20 S [facility] Comment on above: Performed By: #### H EMDF, PT, BMP3M, PHOS3, MG3, CK3 #### [facility] [address] [place], [place] #### VD25H #### [facility] [address] [place] [address] Creatinine mass conc 1.57 mg/dL High 0.52-1.25 [facility] Comment on above: Performed By: #### H EMDF, PT, BMP3M, PHOS3, MG3, CK3 #### [address] #### VD25H #### [facility] [address] [place] [address] GFR/1.73 sq M predicted among blacks MDRD vol rate/area (S/P/Bld) 54.6 mL/min/{1.73_m2} Normal >60 [facility] Comment on above: Performed By: #### H EMDF, PT, BMP3M, PHOS3, MG3, CK3 #### [address] #### VD25H #### [facility] [address] [place] [address] GFR/1.73 sq M predicted among non-blacks MDRD vol rate/area (S/P/Bld) 45.1 mL/min/{1.73_m2} Normal >60 [facility] Comment on above: Result Comment: Sour ce- MDRD equation with creatinine calibration to IDMS(NKDEP) eGFR not recommended for drug dose adjustment Performed By: #### H EMDF, PT, BMP3M, PHOS3, MG3, CK3 #### [address] #### VD25H #### [facility] [address] [place] [address] Chloride molar conc 107 mmol/L Normal 98-107 [facility] Comment on above: Performed By: #### H EMDF, PT, BMP3M, PHOS3, MG3, CK3 #### [facility] [address] [place] [address] #### VD25H #### [facility] [address] [place] [address] Potassium molar conc 3.8 mmol/L Normal 3.5-5.1 [facility] Comment on above: Performed By: #### H EMDF, PT, BMP3M, PHOS3, MG3, CK3 #### [facility] [address] [place] [address] #### VD25H #### [facility] [address] [place] [address] Sodium molar conc 146 mmol/L High 135-145 [facility] Comment on above: Performed By: #### H EMDF, PT, BMP3M, PHOS3, MG3, CK3 #### [facility] [address] [place] [address] #### VD25H #### [facility] [address] [place] [address] CR Abdomen APon 07-22-2018 CR Abdomen AP Patient Name: KATHYA HOOPER Diagnostic Radiology Exam Date/Time 07/22/2018 08:02:02 EDT Exam CR Abdomen AP Ordering Physician MARIA EUGENIA PEREZ Accession Number [id number] CPT4 Codes 58585 () Reason For Exam ileus Report Supine [...] and Time: 07/22/2018 9:28 Normal [facility] CR Chest Portableon 07-23-19 CR Chest Portable Patient Name: KATHYA HOOPER Diagnostic Radiology Exam Date/Time 07/22/2018 16:32:15 EDT Exam CR Chest Portable Ordering Physician MD NATE, [facility] Accession Number [id number] CPT4 Codes 90705 () Reason For Exam Thoracentesis Report Clinical [...] and Time: 07/22/2018 6:46 Normal [facility] CR Chest Portable Patient Name: KATHYA HOOEPR Diagnostic Radiology Exam Date/Time 07/22/2018 06:49:22 EDT Exam CR Chest Portable Ordering Physician MARIA EUGENIA PEREZ Accession Number [id number] CPT4 Codes 82934 () Reason For Exam ETT placement Report [...] and Time: 07/22/2018 9:31 Normal [facility] CULTURE AND STAIN - FLUIDon 07-22-2018 CULTURE AND STAIN - FLUID CULTURE & STAIN - FLUID --> Status: F No growth at 5 days. STAIN GRAM --> Status: F Moderate polymorphonuclear cells/lpf. Moderate mononuclear cells/lpf No organisms seen. Cytocentrifugation performed. Moderate mononuclear cells/lpf No organisms seen. Cytocentrifugation performed. Normal [facility] Comment on above: Order Comment: Speci men Source Comment:Body Fluid Performed By: #### H EMDF, PT, BMP3M, PHOS3, MG3, CK3 #### [facility] [address] [place], [place] #### VD25H #### [facility] [address] [place] [address] Cell Count,Body Fluidon 06-30 Nucleated Cells 259 {cells}/uL Normal [facility] Comment on above: Performed By: #### H EMDF, PT, BMP3M, PHOS3, MG3, CK3 #### [facility] [address] [place], [place] #### VD25H #### [facility] [address] [place] [address] RBC Count Body Fld 123 {RBC}/uL Normal [facility] Comment on above: Performed By: #### H EMDF, PT, BMP3M, PHOS3, MG3, CK3 #### [place] [address] [place], [place] #### VD25H #### [facility] [address] [place] [address] Fluid Type thoracentesis Normal [facility] Comment on above: Performed By: #### H EMDF, PT, BMP3M, PHOS3, MG3, CK3 #### [place] [address] [place], [place] #### VD25H #### [facility] [address] [place] [address] Glucose, Body Fluidon 2018 Fluid Type Thoracentesis Normal [facility] Comment on above: Performed By: #### H EMDF, PT, BMP3M, PHOS3, MG3, CK3 #### [place] [address] [place], [place] #### VD25H #### [facility] [address] [place] [address] Glucose, Body Fluid 136 mg/dL Normal No Range [facility] Comment on above: Performed By: #### H EMDF, PT, BMP3M, PHOS3, MG3, CK3 #### [place] [address] [place] #### VD25H #### [facility] [address] [place] [address] Glucose,Bedsideon 07-22-2018 Glucose mass conc 142 mg/dL High 70-100 [facility] Comment on above: Result Comment: Test performed by glucose meter. Results may be 10%-15% lower than serum/plasma values. (CLIA ID [id number]) Performed By: #### H EMDF, PT, BMP3M, PHOS3, MG3, CK3 #### [place] [address] [place], [place] #### VD25H #### [facility] [employer] [facility] [address] [place] [address] Glucose mass conc 127 mg/dL High 70-100 [facility] Comment on above: Result Comment: Test performed by glucose meter. Results may be 10%-15% lower than serum/plasma values. (CLIA ID [id number]) Performed By: #### H EMDF, PT, BMP3M, PHOS3, MG3, CK3 #### [facility] [address] [place], [place] #### VD25H #### [facility] [employer] [address] [place] [address] Glucose mass conc 139 mg/dL High 70-100 [facility] Comment on above: Result Comment: Test performed by glucose meter. Results may be 10%-15% lower than serum/plasma values. (CLIA ID [id number]) Performed By: #### H EMDF, PT, BMP3M, PHOS3, MG3, CK3 #### [facility] [address] [place], [place] #### VD25H #### [facility] [employer] [address] [place] [address] Glucose mass conc 124 mg/dL High 70-100 [facility] Comment on above: Result Comment: Test performed by glucose meter. Results may be 10%-15% lower than serum/plasma values. (CLIA ID [id number]) Performed By: #### H EMDF, PT, BMP3M, PHOS3, MG3, CK3 #### [facility] [address] [place], [place] #### VD25H #### [employer] [address] [place] [address] Glucose mass conc 128 mg/dL High 70-100 [facility] Comment on above: Result Comment: Test performed by glucose meter. Results may be 10%-15% lower than serum/plasma values. (CLIA ID [id number]) Performed By: #### H EMDF, PT, BMP3M, PHOS3, MG3, CK3 #### [address] #### VD25H #### [facility] [address] [place] [address] Glucose mass conc 113 mg/dL High 70-100 [facility] Comment on above: Result Comment: Test performed by glucose meter. Results may be 10%-15% lower than serum/plasma values. (CLIA ID [id number]) Performed By: #### H EMDF, PT, BMP3M, PHOS3, MG3, CK3 #### [address] #### VD25H #### [address] [place] [address] Hemogram w/ Autodiffon 07-22 Abs Baso Cnt 0.1 10*3/uL Normal 0.0-0.2 [facility] Comment on above: Performed By: #### H EMDF, PT, BMP3M, PHOS3, MG3, CK3 #### [address] #### VD25H #### [address] [place] [address] Abs Neutrophile Cnt 15.2 10*3/uL High 1.8-7.0 [facility] Comment on above: Performed By: #### H EMDF, PT, BMP3M, PHOS3, MG3, CK3 #### [address] #### VD25H #### [address] [place] [address] Basophils/100 WBC (Bld) 0.6 % Normal 0.0-2.0 S [facility] Comment on above: Performed By: #### H EMDF, PT, BMP3M, PHOS3, MG3, CK3 #### [address] #### VD25H #### [address] [place] [address] Eosinophils #/vol (Bld) 0.2 10*3/uL Normal 0.0-0.5 [facility] Comment on above: Performed By: #### H EMDF, PT, BMP3M, PHOS3, MG3, CK3 #### [address] #### VD25H #### [facility] [address] [place] [address] Eosinophils/100 WBC (Bld) 0.9 % Low 1.0-6.0 [facility] Comment on above: Performed By: #### H EMDF, PT, BMP3M, PHOS3, MG3, CK3 #### [address] #### VD25H #### [place] [address] [place] [address] Erythrocyte distribution width Ratio (RBC) 13.9 % Normal 11.5-14.5 [facility] Comment on above: Performed By: #### H EMDF, PT, BMP3M, PHOS3, MG3, CK3 #### [address] #### VD25H #### [facility] [address] [place] [address] Granulocytes/100 WBC (Bld) 88.8 % High 40.0-80.0 [facility] Comment on above: Performed By: #### H EMDF, PT, BMP3M, PHOS3, MG3, CK3 #### [address] #### VD25H #### [facility] [address] [place] [address] Hematocrit Volume Fraction (Bld) 31.6 % Low 40.0-52.0 [facility] Comment on above: Performed By: #### H EMDF, PT, BMP3M, PHOS3, MG3, CK3 #### [address] #### VD25H #### [facility] [address] [place] [address] Hemoglobin mass conc (Bld) 10.9 g/dL Low 13.0-18.0 [facility] Comment on above: Performed By: #### H EMDF, PT, BMP3M, PHOS3, MG3, CK3 #### [address] #### VD25H #### [facility] [address] [place] [address] Lymphocytes #/vol (Bld) 1.1 10*3/uL Normal 1.0-4.3 [facility] Comment on above: Performed By: #### H EMDF, PT, BMP3M, PHOS3, MG3, CK3 #### [address] #### VD25H #### [place] [address] [place] [address] Lymphocytes/100 WBC (Bld) 6.2 % Low 20.0-40.0 [facility] Comment on above: Performed By: #### H EMDF, PT, BMP3M, PHOS3, MG3, CK3 #### [address] #### VD25H #### [place] [address] [place] [address] MCH Entitic mass (RBC) 31.1 pg Normal 26.0-34.0 [facility] Comment on above: Performed By: #### H EMDF, PT, BMP3M, PHOS3, MG3, CK3 #### [address] #### VD25H #### [facility] [address] [place] [address] MCHC mass conc (RBC) 34.6 % Normal 32.0-36.0 [facility] Comment on above: Performed By: #### H EMDF, PT, BMP3M, PHOS3, MG3, CK3 #### [address] #### VD25H #### [facility] [address] [place] [address] MCV Entitic volume (RBC) 89.9 fL Normal 80.0-98.0 [facility] Comment on above: Performed By: #### H EMDF, PT, BMP3M, PHOS3, MG3, CK3 #### [address] [address] [address] [place] #### VD25H #### [facility] [address] [place] [address] Monocytes #/vol (Bld) 0.6 10*3/uL Normal 0.0-0.8 [facility] Comment on above: Performed By: #### H EMDF, PT, BMP3M, PHOS3, MG3, CK3 #### [address] [address] [address] [place] #### VD25H #### [facility] [address] [place] [address] Monocytes/100 WBC (Bld) 3.5 % Normal 2.0-10.0 S [facility] Comment on above: Performed By: #### H EMDF, PT, BMP3M, PHOS3, MG3, CK3 #### [address] [address] [place] #### VD25H #### [facility] [address] [place] [address] Platelet mean volume Entitic volume (Bld) 7.9 fL Normal 7.4-10.4 [facility] Comment on above: Performed By: #### H EMDF, PT, BMP3M, PHOS3, MG3, CK3 #### [address] [address] [place] #### VD25H #### [facility] [address] [place] [address] Platelets #/vol (Bld) 299 10*3/uL Normal 140-440 [facility] Comment on above: Performed By: #### H EMDF, PT, BMP3M, PHOS3, MG3, CK3 #### [address] [address] [place] #### VD25H #### [facility] [address] [place] [address] RBC #/vol (Bld) 3.52 10*6/uL Low 4.40-5.90 [facility] Comment on above: Performed By: #### H EMDF, PT, BMP3M, PHOS3, MG3, CK3 #### [address] [address] [place] #### VD25H #### [place] [address] [place] [address] WBC #/vol (Bld) 17.1 10*3/uL High 3.6-10.7 [facility] Comment on above: Performed By: #### H EMDF, PT, BMP3M, PHOS3, MG3, CK3 #### [address] #### VD25H #### [place] [address] [place] [address] LDH, Body Fluidon 07-22-2018 LDH, Body Fluid 232 U/L Normal No Range [facility] Comment on above: Performed By: #### H EMDF, PT, BMP3M, PHOS3, MG3, CK3 #### [address] #### VD25H #### [place] [address] [place] [address] Magnesiumon 07-22-2018 Magnesium mass conc 2.6 mg/dL High 1.6-2.3 [facility] Comment on above: Performed By: #### H EMDF, PT, BMP3M, PHOS3, MG3, CK3 #### [address] #### VD25H #### [place] [address] [place] [address] Medical Cytologyon 9 Medical Cytology [id number] DEPARTMENT OF PATHOLOGY AND [facility] LABORATORY MEDICINE [address] [facility] [place] [address] FINAL MEDICAL CYTOLOGY REPORT NAME: KATHYA HOOPER : 1955 63 Y M BILLING NO.: [id number] LOCATION: 1T2I T2 INPAT T209 PROCEDURE 07/22/2018 [...] . . . . . . 1 [facility] Screened by CYNDI LILLY M.D. The following statement applies to all immunohistochemistry, in situ hybridization, molecular studies, and immunofluorescence testing. The use of one or more reagents in the above tests is regulated as an analyte specific reagent (ASR). These tests were developed and their performance characteristics determined by the clinical laboratories of [facility]. They have not been cleared by [...] negativity on decalcified specimens. Case reviewed at [facility] [address] [place] [address]. DEPARTMENT OF PATHOLOGY AND LABORATORY MEDICINE [place], [place] Normal [facility] Phosphoruson 07-22-2018 Phosphate mass conc 4.6 mg/dL High 2.5-4.5 [facility] Comment on above: Performed By: #### H EMDF, PT, BMP3M, PHOS3, MG3, CK3 #### [address] #### VD25H #### [place] [address] [address], [place] Procalcitoninon 07-22-2018 Protein mass conc 0.27 ng/mL Abnormal <0.10 [facility] Comment on above: Result Comment: (Cor rect ref.range is <0.09 ng/mL) Test performed: [place], [place]. Performed By: #### H EMDF, PT, BMP3M, PHOS3, MG3, CK3 #### [address] #### VD25H #### [address] [place] [address] Interpretation See Below Normal [facility] Comment on above: Result Comment: PCT <0.50 = Low risk of severe sepsis and/or septic shock. PCT >2.00 = High risk of severe sepsis and/or septic shock. Performed By: #### H EMDF, PT, BMP3M, PHOS3, MG3, CK3 #### [address] #### VD25H #### [facility] [address] [place] [address] STAIN ACID-FASTon 07-22-2018 STAIN ACID-FAST STAIN ACID-FAST --> Status: F No acid-fast bacilli seen in smear. - Method: AFB by Kinyoun Stain - Method: AFB by Kinyoun Stain Normal [facility] Comment on above: Performed By: #### H EMDF, PT, BMP3M, PHOS3, MG3, CK3 #### [facility] [address] [place] [address] #### VD25H #### [facility] [address] [place] [address] Triglycerideon 07-22-2018 Triglyceride mass conc 96 mg/dL Normal <150 [facility] Comment on above: Performed By: #### H EMDF, PT, BMP3M, PHOS3, MG3, CK3 #### [facility] [address] [place] [address] #### VD25H #### [facility] [address] [place] [address] US Thora-Aspir Pleura w/ Evelin geon 07-22-2018 US Thora-Aspir Pleura w/ Image Patient Name: KATHYA HOOPER Ultrasound Exam Date/Time 07/22/2018 14:23:28 EDT Exam US Thora-Aspir Pleura w/ Image Ordering Physician MARIA EUGENIA PEREZ Accession Number [id number] CPT4 Codes 16121 () Reason For Exam L thoracentesis Report Reasons for examination: Left pleural effusion. Respiratory insufficiency. Ultrasound was performed of the left hemithorax, localizing the pleural fluid. After obtaining informed consent, sterile preparation, draping, and local anesthetic administration, thoracentesis was performed under direct ultrasonographic guidance with a 5 Azeri Yueh needle/catheter. A total of 300 mL [...] and Time: 07/22/2018 2:55 Normal [facility] pH,Misc Body Fluidon 019 pH,Misc 7.996 Normal None Available [facility] Comment on above: Performed By: #### H EMDF, PT, BMP3M, PHOS3, MG3, CK3 #### [facility] [address] [place] [address] #### VD25H #### [facility] [address] [place] [address] Arterial Blood Gaseson 07-21 CO2 molar conc 29.8 mmol/L High 23.0-27.0 [facility] Comment on above: Performed By: #### T SGL #### [facility] [address] [place] [address] HCO3 molar conc (Bld) 28.7 mmol/L High 21.0-25.0 [facility] Comment on above: Performed By: #### T SGL #### [address] [address] [place] [address] Hemoglobin mass conc (Bld) 11.7 g/dL Normal ScreenOnly [facility] Comment on above: Performed By: #### T SGL #### [facility] [address] [place] [address] Oxygen ppres (Bld) 144.9 mm[Hg] High 80.0-100.0 [facility] Comment on above: Performed By: #### T SGL #### [facility] [address] [place] [address] Oxygen saturation in Blood 98.4 % Normal 95.0-100.0 [facility] Comment on above: Performed By: #### T SGL #### [address] [address] pCO2 36.8 mm[Hg] Normal 35.0-45.0 [facility] Comment on above: Performed By: #### T SGL #### [address] [address] [place] [address] pH (Bld) 7.510 High 7.350-7.450 [facility] Comment on above: Performed By: #### T SGL #### [facility] [address] [place] [address] Std Base Excess 5.5 mmol/L High -3.0-3.0 [facility] Comment on above: Performed By: #### T SGL #### [facility] [address] [place] [address] FIO2 .50 Normal [facility] Comment on above: Performed By: #### T SGL #### [facility] [address] [place] [address] CR Abdomen APon 07-21-2018 CR Abdomen AP Patient Name: KATHYA HOOPER Diagnostic Radiology Exam Date/Time 07/21/2018 06:41:07 EDT Exam CR Abdomen AP Ordering Physician JOYA ROJAS Accession Number [id number] CPT4 Codes 88929 () Reason For Exam ileus Report Reason [...] and Time: 07/21/2018 7:23 Normal [facility] CR Chest Portableon 07-22-19 19 CR Chest Portable Patient Name: KATHYA HOOPER Diagnostic Radiology Exam Date/Time 07/21/2018 06:40:50 EDT Exam CR Chest Portable Ordering Physician MARIA EUGENIA PEREZ Accession Number [id number] CPT4 Codes 97957 () Reason For Exam ETT placement Report [...] and Time: 07/21/2018 5:38 Normal [facility] CR Chest Portable Patient Name: KATHYA HOOPER Diagnostic Radiology Exam Date/Time 07/21/2018 01:11:50 EDT Exam CR Chest Portable Ordering Physician MD GRIFFIN NICHOLAS Accession Number [id number] CPT4 Codes 19961 () Reason For Exam s/p bronch Report [...] and Time: 07/21/2018 1:26 Normal [facility] Comp Metabolic Panelon 07-21 Calcium mass conc 7.9 mg/dL Low 8.4-10.4 [facility] Comment on above: Performed By: #### T SGL #### [facility] [address] [facility] [place] [address] ALP enzyme act/vol 85 U/L Normal 38-126 [facility] Comment on above: Performed By: #### T SGL #### [facility] [address] [place] [facility] [place] [address] ALT enzyme act/vol 105 U/L High 13-69 [facility] Comment on above: Performed By: #### T SGL #### [facility] [address] [place] [facility] [place] [address] Anion gap molar conc 8 Normal [facility] Comment on above: Performed By: #### T SGL #### [facility] [address] [place] [facility] [place] [address] AST enzyme act/vol 78 U/L High 15-46 [facility] Comment on above: Performed By: #### T SGL #### [facility] [address] [facility] [place] [address] Bilirubin mass conc 1.1 mg/dL Normal 0.2-1.3 [facility] Comment on above: Performed By: #### T SGL #### [facility] [address] [facility] [place] [address] CO2 molar conc 33 mmol/L High 22-30 [facility] Comment on above: Performed By: #### T SGL #### [facility] [address] [facility] [place] [address] Creatinine mass conc 0.90 mg/dL Normal 0.52-1.25 [facility] Comment on above: Performed By: #### T SGL #### [facility] [address] [place] [address] GFR/1.73 sq M predicted among blacks MDRD vol rate/area (S/P/Bld) mL/min/{1.73_m2} Normal >60 [facility] Comment on above: Performed By: #### T SGL #### [facility] [address] [place] [address] GFR/1.73 sq M predicted among non-blacks MDRD vol rate/area (S/P/Bld) mL/min/{1.73_m2} Normal >60 [facility] Comment on above: Result Comment: Sour ce- MDRD equation with creatinine calibration to IDMS(NKDEP) eGFR not recommended for drug dose adjustment Performed By: #### T SGL #### [address] [address] [place] [address] Glucose mass conc 113 mg/dL High 70-100 [facility] Comment on above: Performed By: #### T SGL #### [address] [address] [place] [address] Protein mass conc 5.6 g/dL Low 6.3-8.2 [facility] Comment on above: Performed By: #### T SGL #### [address] [address] [place] [address] Urea nitrogen mass conc 28 mg/dL High 7-20 S [facility] Comment on above: Performed By: #### T SGL #### [address] [address] [place] [address] Chloride molar conc 104 mmol/L Normal 98-107 [facility] Comment on above: Performed By: #### T SGL #### [address] [address] [place] [address] Potassium molar conc 3.6 mmol/L Normal 3.5-5.1 [facility] Comment on above: Performed By: #### T SGL #### [address] [address] [place] [address] Sodium molar conc 145 mmol/L Normal 135-145 [facility] Comment on above: Performed By: #### T SGL #### [address] [address] [place] [address] Albumin mass conc 2.8 g/dL Low 3.5-5.0 [facility] Comment on above: Performed By: #### T SGL #### [facility] [employer] [facility] [address] [place] [address] Glucose,Bedsideon 07-21-2018 Glucose mass conc 124 mg/dL High 70-100 [facility] Comment on above: Result Comment: Test performed by glucose meter. Results may be 10%-15% lower than serum/plasma values. (CLIA ID [id number]) Performed By: #### H EMDF, PT, BMP3M, PHOS3, MG3, CK3 #### [facility] [address] [place] #### VD25H #### [facility] [employer] [address] [place] [address] Glucose mass conc 151 mg/dL High 70-100 [facility] Comment on above: Result Comment: Test performed by glucose meter. Results may be 10%-15% lower than serum/plasma values. (CLIA ID [id number]) Performed By: #### H EMDF, PT, BMP3M, PHOS3, MG3, CK3 #### [facility] [employer] [facility] [address] [place] [address] #### VD25H #### [facility] [employer] [address] [place] [address] Glucose mass conc 127 mg/dL High 70-100 [facility] Comment on above: Result Comment: Test performed by glucose meter. Results may be 10%-15% lower than serum/plasma values. (CLIA ID [id number]) Performed By: #### T SGL #### [facility] [address] [place] [address] Glucose mass conc 113 mg/dL High 70-100 [facility] Comment on above: Result Comment: Test performed by glucose meter. Results may be 10%-15% lower than serum/plasma values. (CLIA ID [id number]) Performed By: #### A DDON #### [facility] [place] Hemogram w/ Autodiffon 07-21 Abs Baso Cnt 0.1 10*3/uL Normal 0.0-0.2 [facility] Comment on above: Performed By: #### T SGL #### [address] [address] [place] [address] Abs Neutrophile Cnt 11.0 10*3/uL High 1.8-7.0 [facility] Comment on above: Performed By: #### T SGL #### [address] [address] [place] [address] Basophils/100 WBC (Bld) 0.5 % Normal 0.0-2.0 S [facility] Comment on above: Performed By: #### T SGL #### [address] [place] [address] Eosinophils #/vol (Bld) 0.3 10*3/uL Normal 0.0-0.5 [facility] Comment on above: Performed By: #### T SGL #### [address] [place] [address] Eosinophils/100 WBC (Bld) 1.9 % Normal 1.0-6.0 [facility] Comment on above: Performed By: #### T SGL #### [address] [place] [address] Erythrocyte distribution width Ratio (RBC) 13.7 % Normal 11.5-14.5 [facility] Comment on above: Performed By: #### T SGL #### [address] [place] [address] Granulocytes/100 WBC (Bld) 81.0 % High 40.0-80.0 [facility] Comment on above: Performed By: #### T SGL #### [address] [place] [address] Hematocrit Volume Fraction (Bld) 32.1 % Low 40.0-52.0 [facility] Comment on above: Performed By: #### T SGL #### [address] [place] [address] Hemoglobin mass conc (Bld) 10.7 g/dL Low 13.0-18.0 [facility] Comment on above: Performed By: #### T SGL #### [facility] [address] [place] [address] Lymphocytes #/vol (Bld) 1.3 10*3/uL Normal 1.0-4.3 [facility] Comment on above: Performed By: #### T SGL #### [facility] [address] [place] [address] Lymphocytes/100 WBC (Bld) 9.8 % Low 20.0-40.0 [facility] Comment on above: Performed By: #### T SGL #### [address] [place] [address] MCH Entitic mass (RBC) 29.0 pg Normal 26.0-34.0 [facility] Comment on above: Performed By: #### T SGL #### [address] [place] [address] MCHC mass conc (RBC) 33.4 % Normal 32.0-36.0 [facility] Comment on above: Performed By: #### T SGL #### [address] [place] [address] MCV Entitic volume (RBC) 86.9 fL Normal 80.0-98.0 [facility] Comment on above: Performed By: #### T SGL #### [address] [place] [address] Monocytes #/vol (Bld) 0.9 10*3/uL High 0.0-0.8 [facility] Comment on above: Performed By: #### T SGL #### [address] [place] [address] Monocytes/100 WBC (Bld) 6.8 % Normal 2.0-10.0 [facility] Comment on above: Performed By: #### T SGL #### [address] [place] [address] Platelet mean volume Entitic volume (Bld) 7.4 fL Normal 7.4-10.4 [facility] Comment on above: Performed By: #### T SGL #### [address] [place] [address] Platelets #/vol (Bld) 367 10*3/uL Normal 140-440 [facility] Comment on above: Performed By: #### T SGL #### [facility] [address] [place] [address] RBC #/vol (Bld) 3.69 10*6/uL Low 4.40-5.90 [facility] Comment on above: Performed By: #### T SGL #### [facility] [address] [place] [address] WBC #/vol (Bld) 13.6 10*3/uL High 3.6-10.7 [facility] Comment on above: Performed By: #### T SGL #### [facility] [address] [place] [address] Magnesiumon 07-21-2018 Magnesium mass conc 2.6 mg/dL High 1.6-2.3 [facility] Comment on above: Performed By: #### T SGL #### [address] [place] [address] Phosphoruson 07-21-2018 Phosphate mass conc 4.2 mg/dL Normal 2.5-4.5 [facility] Comment on above: Performed By: #### T SGL #### [address] [place] [address] Triglycerideon 07-21-2018 Triglyceride mass conc 105 mg/dL Normal <150 [facility] Comment on above: Performed By: #### T SGL #### [address] [place] [address] Add on test from HISon 07-20 Add on test from [facility] Accepted Normal [facility] Comment on above: Result Comment: Spec imen available & acceptable for analysis. Performed By: #### A DDON #### [address] [place] [address] Basic Metabolic Panelon 06-30 Calcium mass conc 7.7 mg/dL Low 8.4-10.4 [facility] Comment on above: Performed By: #### A DDON #### [address] [place] [address] Glucose mass conc 96 mg/dL Normal 70-100 [facility] Comment on above: Performed By: #### A DDON #### [facility] [address] [place] [address] Urea nitrogen mass conc 22 mg/dL High 7-20 S [facility] Comment on above: Performed By: #### A DDON #### [facility] [address] [place] [address] Anion gap molar conc 10 Normal [facility] Comment on above: Performed By: #### A DDON #### [facility] [address] [place] [address] CO2 molar conc 29 mmol/L Normal 22-30 [facility] Comment on above: Performed By: #### A DDON #### [facility] [address] [place] [address] Creatinine mass conc 0.87 mg/dL Normal 0.52-1.25 [facility] Comment on above: Performed By: #### A DDON #### [facility] [facility] [address] [place] [address] GFR/1.73 sq M predicted among blacks MDRD vol rate/area (S/P/Bld) mL/min/{1.73_m2} Normal >60 [facility] Comment on above: Performed By: #### A DDON #### [facility] [address] [place] [address] GFR/1.73 sq M predicted among non-blacks MDRD vol rate/area (S/P/Bld) mL/min/{1.73_m2} Normal >60 [facility] Comment on above: Result Comment: Sour ce- MDRD equation with creatinine calibration to IDMS(NKDEP) eGFR not recommended for drug dose adjustment Performed By: #### A DDON #### [facility] [address] [place] [address] Potassium molar conc 3.6 mmol/L Normal 3.5-5.1 [facility] Comment on above: Performed By: #### A DDON #### [facility] [address] [place] [address] Chloride molar conc 105 mmol/L Normal 98-107 [facility] Comment on above: Performed By: #### A DDON #### [facility] [address] [place], [place] Sodium molar conc 144 mmol/L Normal 135-145 [facility] Comment on above: Performed By: #### A DDON #### [facility] [address] [place], [place] CR Abdomen APon 07-20-2018 CR Abdomen AP Patient Name: KATHYA HOOPER Diagnostic Radiology Exam Date/Time 07/20/2018 08:39:45 EDT Exam CR Abdomen AP Ordering Physician JOYA ROJAS Accession Number [id number] CPT4 Codes 87927 () Reason For Exam ileus Report Clinical [...] and Time: 07/20/2018 9:29 Normal [facility] CR Chest Portableon 07-21-19 19 CR Chest Portable Patient Name: KATHYA HOOPER Diagnostic Radiology Exam Date/Time 07/20/2018 08:39:26 EDT Exam CR Chest Portable Ordering Physician MARIA EUGENIA PEREZ Accession Number [id number] CPT4 Codes 22236 () Reason For Exam ETT placement Report [...] and Time: 07/20/2018 9:28 Normal [facility] CT Abdomen/Pelvis w/ Contras ton 07-20-2018 CT Abdomen/Pelvis w/ Contrast Patient Name: KATHYA HOOPER CT Exam Date/Time 07/20/2018 11:30:[address] Abdomen/Pelvis w/ IV Contrast (IV Onl Ordering Physician [id number] JOYA PERRY Accession Number [id number] CPT4 Codes 74742 (CT Abdomen/Pelvis w/ IV Contrast (IV Onl) [...] and Time: 07/20/2018 1:10 Normal [facility] CT Chest w/ Contraston 07-20 CT Chest w/ Contrast Patient Name: KATHYA RAY CT Exam Date/Time 07/20/2018 11:30:[address] Chest w/ Contrast Ordering Physician [id number] AGUILERA Accession Number [id number] CPT4 Codes 43945 (), Q9967 (CT ISOVUE 370MG/[id number]) Reason For Exam SOB, possible pneumonia Report [...] and Time: 07/20/2018 1:28 Normal [facility] Glucose,Bedsideon 07-20-2018 Glucose mass conc 128 mg/dL High 70-100 [facility] Comment on above: Result Comment: Test performed by glucose meter. Results may be 10%-15% lower than serum/plasma values. (CLIA ID [id number]) Performed By: #### A DDON #### [address] Hemogram w/ Autodiffon 07-20 Abs Baso Cnt 0.1 10*3/uL Normal 0.0-0.2 [facility] Comment on above: Performed By: #### H EMDF, PT, BMP3M, PHOS3, MG3, CK3 #### [address] #### VD25H #### [facility] [address] [place] [address] Abs Neutrophile Cnt 13.0 10*3/uL High 1.8-7.0 [facility] Comment on above: Performed By: #### H EMDF, PT, BMP3M, PHOS3, MG3, CK3 #### [address] #### VD25H #### [facility] [address] [place] [address] Basophils/100 WBC (Bld) 0.3 % Normal 0.0-2.0 S [facility] Comment on above: Performed By: #### H EMDF, PT, BMP3M, PHOS3, MG3, CK3 #### [address] #### VD25H #### [facility] [address] [place] [address] Eosinophils #/vol (Bld) 0.3 10*3/uL Normal 0.0-0.5 [facility] Comment on above: Performed By: #### H EMDF, PT, BMP3M, PHOS3, MG3, CK3 #### [address] #### VD25H #### [facility] [address] [place] [address] Eosinophils/100 WBC (Bld) 1.9 % Normal 1.0-6.0 [facility] Comment on above: Performed By: #### H EMDF, PT, BMP3M, PHOS3, MG3, CK3 #### [address] #### VD25H #### [facility] [address] [place] [address] Erythrocyte distribution width Ratio (RBC) 13.3 % Normal 11.5-14.5 [facility] Comment on above: Performed By: #### H EMDF, PT, BMP3M, PHOS3, MG3, CK3 #### [address] #### VD25H #### [facility] [address] [place] [address] Granulocytes/100 WBC (Bld) 81.8 % High 40.0-80.0 [facility] Comment on above: Performed By: #### H EMDF, PT, BMP3M, PHOS3, MG3, CK3 #### [address] #### VD25H #### [facility] [address] [place] [address] Hematocrit Volume Fraction (Bld) 33.6 % Low 40.0-52.0 [facility] Comment on above: Performed By: #### H EMDF, PT, BMP3M, PHOS3, MG3, CK3 #### [address] #### VD25H #### [facility] [address] [place] [address] Hemoglobin mass conc (Bld) 11.4 g/dL Low 13.0-18.0 [facility] Comment on above: Performed By: #### H EMDF, PT, BMP3M, PHOS3, MG3, CK3 #### [address] #### VD25H #### [facility] [address] [place] [address] Lymphocytes #/vol (Bld) 1.5 10*3/uL Normal 1.0-4.3 [facility] Comment on above: Performed By: #### H EMDF, PT, BMP3M, PHOS3, MG3, CK3 #### [address] #### VD25H #### [facility] [address] [place] [address] Lymphocytes/100 WBC (Bld) 9.2 % Low 20.0-40.0 [facility] Comment on above: Performed By: #### H EMDF, PT, BMP3M, PHOS3, MG3, CK3 #### [address] #### VD25H #### [place] [address] [place] [address] MCH Entitic mass (RBC) 29.3 pg Normal 26.0-34.0 [facility] Comment on above: Performed By: #### H EMDF, PT, BMP3M, PHOS3, MG3, CK3 #### [address] #### VD25H #### [place] [address] [place] [address] MCHC mass conc (RBC) 33.9 % Normal 32.0-36.0 [facility] Comment on above: Performed By: #### H EMDF, PT, BMP3M, PHOS3, MG3, CK3 #### [address] #### VD25H #### [facility] [address] [place] [address] MCV Entitic volume (RBC) 86.5 fL Normal 80.0-98.0 [facility] Comment on above: Performed By: #### H EMDF, PT, BMP3M, PHOS3, MG3, CK3 #### [address] #### VD25H #### [facility] [address] [place] [address] Monocytes #/vol (Bld) 1.1 10*3/uL High 0.0-0.8 [facility] Comment on above: Performed By: #### H EMDF, PT, BMP3M, PHOS3, MG3, CK3 #### [place] [address] [place] #### VD25H #### [facility] [address] [place] [address] Monocytes/100 WBC (Bld) 6.8 % Normal 2.0-10.0 S [facility] Comment on above: Performed By: #### H EMDF, PT, BMP3M, PHOS3, MG3, CK3 #### [address] #### VD25H #### [facility] [address] [place] [address] Platelet mean volume Entitic volume (Bld) 7.5 fL Normal 7.4-10.4 [facility] Comment on above: Performed By: #### H EMDF, PT, BMP3M, PHOS3, MG3, CK3 #### [address] #### VD25H #### [facility] [address] [place] [address] Platelets #/vol (Bld) 375 10*3/uL Normal 140-440 [facility] Comment on above: Performed By: #### H EMDF, PT, BMP3M, PHOS3, MG3, CK3 #### [address] #### VD25H #### [facility] [address] [place] [address] RBC #/vol (Bld) 3.88 10*6/uL Low 4.40-5.90 [facility] Comment on above: Performed By: #### H EMDF, PT, BMP3M, PHOS3, MG3, CK3 #### [facility] [address] [place] #### VD25H #### [facility] [address] [place] [address] WBC #/vol (Bld) 15.9 10*3/uL High 3.6-10.7 [facility] Comment on above: Performed By: #### H EMDF, PT, BMP3M, PHOS3, MG3, CK3 #### [place] [address] [place] #### VD25H #### [facility] [address] [place] [address] Phosphoruson 07-20-2018 Phosphate mass conc 5.5 mg/dL High 2.5-4.5 [facility] Comment on above: Performed By: #### A DDON #### [address] Add on test from HISon 07-19 Add on test from HIS Accepted Normal [facility] Comment on above: Result Comment: Spec imen available & acceptable for analysis. Performed By: #### H EMDF, PT, BMP3M, PHOS3, MG3, CK3 #### [address] [place] #### VD25H #### [facility] [address] [place] [address] Arterial Blood Gaseson 07-19 CO2 molar conc 31.5 mmol/L High 23.0-27.0 [facility] Comment on above: Performed By: #### H EMDF, PT, BMP3M, PHOS3, MG3, CK3 #### [place] [address] [place] #### VD25H #### [facility] [address] [facility] [place] [address] HCO3 molar conc (Bld) 30.2 mmol/L High 21.0-25.0 [facility] Comment on above: Performed By: #### H EMDF, PT, BMP3M, PHOS3, MG3, CK3 #### [facility] [address] [place] #### VD25H #### [facility] [address] [place] [address] Hemoglobin mass conc (Bld) 11.7 g/dL Normal ScreenOnly [facility] Comment on above: Performed By: #### H EMDF, PT, BMP3M, PHOS3, MG3, CK3 #### [facility] [address] [place] #### VD25H #### [facility] [address] [place] [address] Oxygen ppres (Bld) 85.1 mm[Hg] Normal 80.0-100.0 [facility] Comment on above: Performed By: #### H EMDF, PT, BMP3M, PHOS3, MG3, CK3 #### [place] [address] [place] #### VD25H #### [facility] [address] [place] [address] Oxygen saturation in Blood 95.9 % Normal 95.0-100.0 [facility] Comment on above: Performed By: #### H EMDF, PT, BMP3M, PHOS3, MG3, CK3 #### [place] [address] #### VD25H #### [facility] [address] [place] [address] pCO2 43.6 mm[Hg] Normal 35.0-45.0 [facility] Comment on above: Performed By: #### H EMDF, PT, BMP3M, PHOS3, MG3, CK3 #### [address] [place] #### VD25H #### [facility] [address] [place] [address] pH (Bld) 7.458 High 7.350-7.450 [facility] Comment on above: Performed By: #### H EMDF, PT, BMP3M, PHOS3, MG3, CK3 #### [facility] [address] [place] #### VD25H #### [facility] [address] [place] [address] Std Base Excess 5.7 mmol/L High -3.0-3.0 [facility] Comment on above: Performed By: #### H EMDF, PT, BMP3M, PHOS3, MG3, CK3 #### [place] [address] #### VD25H #### [facility] [address] [place] [address] FIO2 40% Normal [facility] Comment on above: Performed By: #### H EMDF, PT, BMP3M, PHOS3, MG3, CK3 #### [place] [address] [place] #### VD25H #### [facility] [address] [place] [address] Basic Metabolic Panelon 03-2 Calcium mass conc 7.5 mg/dL Low 8.4-10.4 [facility] Comment on above: Performed By: #### H EMDF, PT, BMP3M, PHOS3, MG3, CK3 #### [address] [place] #### VD25H #### [facility] [address] [place] [address] Glucose mass conc 274 mg/dL High 70-100 [facility] Comment on above: Performed By: #### H EMDF, PT, BMP3M, PHOS3, MG3, CK3 #### [place] [address] [place] #### VD25H #### [facility] [address] [place] [address] Anion gap molar conc 6 Normal [facility] Comment on above: Performed By: #### H EMDF, PT, BMP3M, PHOS3, MG3, CK3 #### [place] [address] [place] #### VD25H #### [facility] [address] [place] [address] CO2 molar conc 31 mmol/L High 22-30 [facility] Comment on above: Performed By: #### H EMDF, PT, BMP3M, PHOS3, MG3, CK3 #### [address] #### VD25H #### [facility] [address] [place] [address] Creatinine mass conc 0.64 mg/dL Normal 0.52-1.25 [facility] Comment on above: Performed By: #### H EMDF, PT, BMP3M, PHOS3, MG3, CK3 #### [address] #### VD25H #### [place] [address] [place] [address] GFR/1.73 sq M predicted among blacks MDRD vol rate/area (S/P/Bld) mL/min/{1.73_m2} Normal >60 [facility] Comment on above: Performed By: #### H EMDF, PT, BMP3M, PHOS3, MG3, CK3 #### [address] #### VD25H #### [facility] [address] [place] [address] GFR/1.73 sq M predicted among non-blacks MDRD vol rate/area (S/P/Bld) mL/min/{1.73_m2} Normal >60 [facility] Comment on above: Result Comment: Sour ce- MDRD equation with creatinine calibration to IDMS(NKDEP) eGFR not recommended for drug dose adjustment Performed By: #### H EMDF, PT, BMP3M, PHOS3, MG3, CK3 #### [address] #### VD25H #### [facility] [address] [place] [address] Urea nitrogen mass conc 15 mg/dL Normal 7-20 S [facility] Comment on above: Performed By: #### H EMDF, PT, BMP3M, PHOS3, MG3, CK3 #### [facility] [address] [place] [address] #### VD25H #### [facility] [address] [place] [address] Chloride molar conc 105 mmol/L Normal 98-107 [facility] Comment on above: Performed By: #### H EMDF, PT, BMP3M, PHOS3, MG3, CK3 #### [place] [address] [place] [address] #### VD25H #### [facility] [address] [place] [address] Potassium molar conc 4.3 mmol/L Normal 3.5-5.1 [facility] Comment on above: Performed By: #### H EMDF, PT, BMP3M, PHOS3, MG3, CK3 #### [facility] [address] [place] [address] #### VD25H #### [facility] [address] [place] [address] Sodium molar conc 141 mmol/L Normal 135-145 [facility] Comment on above: Performed By: #### H EMDF, PT, BMP3M, PHOS3, MG3, CK3 #### [place] [address] [place] [address] #### VD25H #### [facility] [address] [place] [address] CR Abdomen APon 07-19-2018 CR Abdomen AP Patient Name: KATHYA HOOPER Diagnostic Radiology Exam Date/Time 07/19/2018 06:44:12 EDT Exam CR Abdomen AP Ordering Physician [id number] JOYA PERRY Accession Number [id number] CPT4 Codes 43425 () Reason For Exam ileus Report Abdomen: [...] and Time: 07/19/2018 7:46 Normal [facility] CR Chest Portableon 07-20-19 19 CR Chest Portable Patient Name: KATHYA HOOPER Diagnostic Radiology Exam Date/Time 07/19/2018 06:43:52 EDT Exam CR Chest Portable Ordering Physician MARIA EUGENIA PEREZ Accession Number [id number] CPT4 Codes 35091 () Reason For Exam ETT placement Report [...] and Time: 07/19/2018 7:44 Normal [facility] Glucose,Bedsideon 07-19-2018 Glucose mass conc 95 mg/dL Normal 70-100 [facility] Comment on above: Result Comment: Test performed by glucose meter. Results may be 10%-15% lower than serum/plasma values. (CLIA ID [id number]) Performed By: #### H EMDF, PT, BMP3M, PHOS3, MG3, CK3 #### [facility] [address] #### VD25H #### [facility] [address] [place] [address] Hemogram w/ Autodiffon 07-19 Abs Baso Cnt 0.1 10*3/uL Normal 0.0-0.2 [facility] Comment on above: Performed By: #### H EMDF, PT, BMP3M, PHOS3, MG3, CK3 #### [address] [place] #### VD25H #### [facility] [address] [place] [address] Abs Neutrophile Cnt 9.8 10*3/uL High 1.8-7.0 [facility] Comment on above: Performed By: #### H EMDF, PT, BMP3M, PHOS3, MG3, CK3 #### [address] [place] [address] [place], [place] #### VD25H #### [facility] [address] [place] [address] Basophils/100 WBC (Bld) 0.5 % Normal 0.0-2.0 S [facility] Comment on above: Performed By: #### H EMDF, PT, BMP3M, PHOS3, MG3, CK3 #### [place] [place] [address] [place], [place] #### VD25H #### [facility] [address] [place] [address] Eosinophils #/vol (Bld) 0.3 10*3/uL Normal 0.0-0.5 [facility] Comment on above: Performed By: #### H EMDF, PT, BMP3M, PHOS3, MG3, CK3 #### [address] #### VD25H #### [facility] [address] [place] [address] Eosinophils/100 WBC (Bld) 2.5 % Normal 1.0-6.0 [facility] Comment on above: Performed By: #### H EMDF, PT, BMP3M, PHOS3, MG3, CK3 #### [address] #### VD25H #### [facility] [address] [place] [address] Erythrocyte distribution width Ratio (RBC) 13.3 % Normal 11.5-14.5 [facility] Comment on above: Performed By: #### H EMDF, PT, BMP3M, PHOS3, MG3, CK3 #### [address] #### VD25H #### [facility] [address] [place] [address] Granulocytes/100 WBC (Bld) 80.4 % High 40.0-80.0 [facility] Comment on above: Performed By: #### H EMDF, PT, BMP3M, PHOS3, MG3, CK3 #### [address] #### VD25H #### [facility] [address] [place] [address] Hematocrit Volume Fraction (Bld) 30.6 % Low 40.0-52.0 [facility] Comment on above: Performed By: #### H EMDF, PT, BMP3M, PHOS3, MG3, CK3 #### [address] #### VD25H #### [facility] [address] [place] [address] Hemoglobin mass conc (Bld) 10.5 g/dL Low 13.0-18.0 [facility] Comment on above: Performed By: #### H EMDF, PT, BMP3M, PHOS3, MG3, CK3 #### [address] #### VD25H #### [facility] [address] [place] [address] Lymphocytes #/vol (Bld) 1.1 10*3/uL Normal 1.0-4.3 [facility] Comment on above: Performed By: #### H EMDF, PT, BMP3M, PHOS3, MG3, CK3 #### [facility] [address] #### VD25H #### [facility] [address] [place] [address] Lymphocytes/100 WBC (Bld) 9.1 % Low 20.0-40.0 [facility] Comment on above: Performed By: #### H EMDF, PT, BMP3M, PHOS3, MG3, CK3 #### [address] #### VD25H #### [facility] [address] [place] [address] MCH Entitic mass (RBC) 29.7 pg Normal 26.0-34.0 [facility] Comment on above: Performed By: #### H EMDF, PT, BMP3M, PHOS3, MG3, CK3 #### [address] #### VD25H #### [facility] [address] [place] [address] MCHC mass conc (RBC) 34.3 % Normal 32.0-36.0 [facility] Comment on above: Performed By: #### H EMDF, PT, BMP3M, PHOS3, MG3, CK3 #### [place] [address] [place] #### VD25H #### [facility] [address] [place] [address] MCV Entitic volume (RBC) 86.7 fL Normal 80.0-98.0 [facility] Comment on above: Performed By: #### H EMDF, PT, BMP3M, PHOS3, MG3, CK3 #### [address] #### VD25H #### [facility] [address] [place] [address] Monocytes #/vol (Bld) 0.9 10*3/uL High 0.0-0.8 [facility] Comment on above: Performed By: #### H EMDF, PT, BMP3M, PHOS3, MG3, CK3 #### [facility] [address] [place], [place] #### VD25H #### [facility] [address] [place] [address] Monocytes/100 WBC (Bld) 7.5 % Normal 2.0-10.0 S [facility] Comment on above: Performed By: #### H EMDF, PT, BMP3M, PHOS3, MG3, CK3 #### [address] #### VD25H #### [facility] [address] [place] [address] Platelet mean volume Entitic volume (Bld) 7.3 fL Low 7.4-10.4 [facility] Comment on above: Performed By: #### H EMDF, PT, BMP3M, PHOS3, MG3, CK3 #### [address] #### VD25H #### [facility] [address] [place] [address] Platelets #/vol (Bld) 329 10*3/uL Normal 140-440 [facility] Comment on above: Performed By: #### H EMDF, PT, BMP3M, PHOS3, MG3, CK3 #### [address] #### VD25H #### [facility] [address] [place] [address] RBC #/vol (Bld) 3.53 10*6/uL Low 4.40-5.90 [facility] Comment on above: Performed By: #### H EMDF, PT, BMP3M, PHOS3, MG3, CK3 #### [address] #### VD25H #### [facility] [address] [facility] [place] [address] WBC #/vol (Bld) 12.2 10*3/uL High 3.6-10.7 [facility] Comment on above: Performed By: #### H EMDF, PT, BMP3M, PHOS3, MG3, CK3 #### [place] [address] [place], [place] #### VD25H #### [facility] [address] [place] [address] Magnesiumon 07-19-2018 Magnesium mass conc 2.3 mg/dL Normal 1.6-2.3 [facility] Comment on above: Performed By: #### H EMDF, PT, BMP3M, PHOS3, MG3, CK3 #### [address] #### VD25H #### [address] [facility] [place] [address] Procalcitoninon 07-19-2018 Protein mass conc 0.15 ng/mL Abnormal <0.10 [facility] Comment on above: Performed By: #### H EMDF, PT, BMP3M, PHOS3, MG3, CK3 #### [address] #### VD25H #### [address] [place] [address] Interpretation See Below Normal [facility] Comment on above: Result Comment: PCT <0.50 = Low risk of severe sepsis and/or septic shock. PCT >2.00 = High risk of severe sepsis and/or septic shock. Performed By: #### H EMDF, PT, BMP3M, PHOS3, MG3, CK3 #### [address] #### VD25H #### [address] [place] [address] VL Venous Duplex US Lower Ex t Bilateralon 07-19-2018 VL Venous Duplex US Lower Ext Bilateral Patient Name: KATHYA HOOPER Ultrasound Exam Date/Time 07/19/2018 11:10:14 EDT Exam VL Venous Duplex US Lower Ext Bilateral Ordering Physician ETIENNE MARTÍNEZ JULIE Accession Number [id number] CPT4 Codes 36992 () Reason For Exam edema Report [facility] [place] --- Lower Extremity Venous Duplex Report Patient Name: Kathya Hooper : 1955 Study Date: 07/19/2018 W (63yrs) Age: 63 Account: [id number] Gender: M Loc: [id number] BP: Ordering: Yesenia Martínez Technologist: Ordering Physician: Yesenia Martínez Manager Of Network: León Chaidez RVT [facility] Interpreting Physician: Ricardo Hall MD --- Location: [facility] --- INDICATIONS: Edema. bilateral calf [...] performed. The images were obtained using a Flexiant E9 vascular ultrasound machine. --- VENOUS FLOW [...] --+ Electronically signed by: Ricardo Hall MD [id number] Final Dictated: 07/20/2018 10:49 am Dictating Physician: RICARDO HALL Signed Date and Time: 07/19/2018 11:03 am Signed by: RICARDO HALL Normal [employer] Basic Metabolic Panelon 06-30 Calcium mass conc 7.9 mg/dL Low 8.4-10.4 [employer] [facility] Comment on above: Performed By: #### H EMDF, PT, BMP3M, PHOS3, MG3, CK3 #### [employer] [address] [place] [id number] #### VD25H #### [facility] [address] [place] [address] Glucose mass conc 113 mg/dL High 70-100 [facility] Comment on above: Performed By: #### H EMDF, PT, BMP3M, PHOS3, MG3, CK3 #### [facility] [address] [place], [place] #### VD25H #### [facility] [address] [place] [address] Anion gap molar conc 7 Normal [facility] Comment on above: Performed By: #### H EMDF, PT, BMP3M, PHOS3, MG3, CK3 #### [place] [address] [place], [place] #### VD25H #### [facility] [address] [place] [address] CO2 molar conc 31 mmol/L High 22-30 [facility] Comment on above: Performed By: #### H EMDF, PT, BMP3M, PHOS3, MG3, CK3 #### [address] [place] #### VD25H #### [facility] [address] [place] [address] Creatinine mass conc 0.59 mg/dL Normal 0.52-1.25 [facility] Comment on above: Performed By: #### H EMDF, PT, BMP3M, PHOS3, MG3, CK3 #### [place] [address] [place], [place] #### VD25H #### [facility] [address] [place] [address] GFR/1.73 sq M predicted among blacks MDRD vol rate/area (S/P/Bld) mL/min/{1.73_m2} Normal >60 [facility] Comment on above: Performed By: #### H EMDF, PT, BMP3M, PHOS3, MG3, CK3 #### [address] [address] [place], [place] #### VD25H #### [facility] [address] [place] [address] GFR/1.73 sq M predicted among non-blacks MDRD vol rate/area (S/P/Bld) mL/min/{1.73_m2} Normal >60 [facility] Comment on above: Result Comment: Sour ce- MDRD equation with creatinine calibration to IDMS(NKDEP) eGFR not recommended for drug dose adjustment Performed By: #### H EMDF, PT, BMP3M, PHOS3, MG3, CK3 #### [address] [address] [address] [place], [place] #### VD25H #### [facility] [address] [place] [address] Urea nitrogen mass conc 19 mg/dL Normal 7-20 S [facility] Comment on above: Performed By: #### H EMDF, PT, BMP3M, PHOS3, MG3, CK3 #### [address] #### VD25H #### [facility] [address] [place] [address] Chloride molar conc 104 mmol/L Normal 98-107 [facility] Comment on above: Performed By: #### H EMDF, PT, BMP3M, PHOS3, MG3, CK3 #### [address] #### VD25H #### [facility] [address] [place] [address] Potassium molar conc 3.4 mmol/L Low 3.5-5.1 [facility] Comment on above: Performed By: #### H EMDF, PT, BMP3M, PHOS3, MG3, CK3 #### [address] [place], [place] #### VD25H #### [facility] [address] [place] [address] Sodium molar conc 142 mmol/L Normal 135-145 [facility] Comment on above: Performed By: #### H EMDF, PT, BMP3M, PHOS3, MG3, CK3 #### [facility] [address] [place] [address] #### VD25H #### [facility] [address] [place] [address] CR Abdomen APon 07-18-2018 CR Abdomen AP Patient Name: KATHYA HOOPER Diagnostic Radiology Exam Date/Time 07/18/2018 06:52:18 EDT Exam CR Abdomen AP Ordering Physician JOYA ROJAS Accession Number [id number] CPT4 Codes 86853 () Reason For Exam ileus Report CLINICAL [...] and Time: 07/18/2018 2:33 Normal [facility] CR Chest Portableon 07-19-19 19 CR Chest Portable Patient Name: KATHYA HOOPER Diagnostic Radiology Exam Date/Time 07/18/2018 06:52:50 EDT Exam CR Chest Portable Ordering Physician MARIA EUGENIA PEREZ Accession Number [id number] CPT4 Codes 06512 () Reason For Exam ETT placement Report [...] and Time: 07/18/2018 2:32 Normal [facility] Hemogram w/ Autodiffon 07-18 Abs Baso Cnt 0.0 10*3/uL Normal 0.0-0.2 [facility] Comment on above: Performed By: #### H EMDF, PT, BMP3M, PHOS3, MG3, CK3 #### [address] #### VD25H #### [facility] [address] [place] [address] Abs Neutrophile Cnt 8.6 10*3/uL High 1.8-7.0 [facility] Comment on above: Performed By: #### H EMDF, PT, BMP3M, PHOS3, MG3, CK3 #### [address] #### VD25H #### [facility] [address] [facility] [place] [address] Basophils/100 WBC (Bld) 0.4 % Normal 0.0-2.0 S [facility] Comment on above: Performed By: #### H EMDF, PT, BMP3M, PHOS3, MG3, CK3 #### [address] #### VD25H #### [facility] [address] [place] [address] Eosinophils #/vol (Bld) 0.2 10*3/uL Normal 0.0-0.5 [facility] Comment on above: Performed By: #### H EMDF, PT, BMP3M, PHOS3, MG3, CK3 #### [address] #### VD25H #### [facility] [address] [place] [address] Eosinophils/100 WBC (Bld) 2.1 % Normal 1.0-6.0 [facility] Comment on above: Performed By: #### H EMDF, PT, BMP3M, PHOS3, MG3, CK3 #### [address] #### VD25H #### [place] [address] [place] [address] Erythrocyte distribution width Ratio (RBC) 13.4 % Normal 11.5-14.5 [facility] Comment on above: Performed By: #### H EMDF, PT, BMP3M, PHOS3, MG3, CK3 #### [address] #### VD25H #### [place] [address] [place] [address] Granulocytes/100 WBC (Bld) 80.0 % Normal 40.0-80.0 [facility] Comment on above: Performed By: #### H EMDF, PT, BMP3M, PHOS3, MG3, CK3 #### [address] #### VD25H #### [facility] [address] [place] [address] Hematocrit Volume Fraction (Bld) 37.3 % Low 40.0-52.0 [facility] Comment on above: Performed By: #### H EMDF, PT, BMP3M, PHOS3, MG3, CK3 #### [address] [address] #### VD25H #### [place] [address] [place] [address] Hemoglobin mass conc (Bld) 12.6 g/dL Low 13.0-18.0 [facility] Comment on above: Performed By: #### H EMDF, PT, BMP3M, PHOS3, MG3, CK3 #### [address] #### VD25H #### [facility] [address] [place] [address] Lymphocytes #/vol (Bld) 1.1 10*3/uL Normal 1.0-4.3 [facility] Comment on above: Performed By: #### H EMDF, PT, BMP3M, PHOS3, MG3, CK3 #### [address] #### VD25H #### [place] [address] [place] [address] Lymphocytes/100 WBC (Bld) 10.3 % Low 20.0-40.0 [facility] Comment on above: Performed By: #### H EMDF, PT, BMP3M, PHOS3, MG3, CK3 #### [address] #### VD25H #### [place] [address] [place] [address] MCH Entitic mass (RBC) 29.4 pg Normal 26.0-34.0 [facility] Comment on above: Performed By: #### H EMDF, PT, BMP3M, PHOS3, MG3, CK3 #### [address] #### VD25H #### [place] [address] [place] [address] MCHC mass conc (RBC) 33.9 % Normal 32.0-36.0 [facility] Comment on above: Performed By: #### H EMDF, PT, BMP3M, PHOS3, MG3, CK3 #### [address] #### VD25H #### [facility] [address] [place] [address] MCV Entitic volume (RBC) 86.8 fL Normal 80.0-98.0 [facility] Comment on above: Performed By: #### H EMDF, PT, BMP3M, PHOS3, MG3, CK3 #### [address] #### VD25H #### [facility] [address] [place] [address] Monocytes #/vol (Bld) 0.8 10*3/uL Normal 0.0-0.8 [facility] Comment on above: Performed By: #### H EMDF, PT, BMP3M, PHOS3, MG3, CK3 #### [address] #### VD25H #### [facility] [address] [place] [address] Monocytes/100 WBC (Bld) 7.2 % Normal 2.0-10.0 [facility] Comment on above: Performed By: #### H EMDF, PT, BMP3M, PHOS3, MG3, CK3 #### [address] #### VD25H #### [facility] [address] [place] [address] Platelet mean volume Entitic volume (Bld) 7.8 fL Normal 7.4-10.4 [facility] Comment on above: Performed By: #### H EMDF, PT, BMP3M, PHOS3, MG3, CK3 #### [address] #### VD25H #### [facility] [address] [place] [address] Platelets #/vol (Bld) 301 10*3/uL Normal 140-440 [facility] Comment on above: Performed By: #### H EMDF, PT, BMP3M, PHOS3, MG3, CK3 #### [facility] [address] [place] #### VD25H #### [facility] [address] [place] [address] RBC #/vol (Bld) 4.29 10*6/uL Low 4.40-5.90 [facility] Comment on above: Performed By: #### H EMDF, PT, BMP3M, PHOS3, MG3, CK3 #### [address] [address] [address] [place], [place] #### VD25H #### [facility] [address] [place] [address] WBC #/vol (Bld) 10.8 10*3/uL High 3.6-10.7 [facility] Comment on above: Performed By: #### H EMDF, PT, BMP3M, PHOS3, MG3, CK3 #### [address] [address] [place], [place] #### VD25H #### [facility] [address] [place] [address] Arterial Blood Gaseson 07-17 CO2 molar conc 29.7 mmol/L High 23.0-27.0 [facility] Comment on above: Performed By: #### H EMDF, PT, BMP3M, PHOS3, MG3, CK3 #### [address] #### VD25H #### [facility] [address] [place] [address] HCO3 molar conc (Bld) 28.4 mmol/L High 21.0-25.0 [facility] Comment on above: Performed By: #### H EMDF, PT, BMP3M, PHOS3, MG3, CK3 #### [address] #### VD25H #### [facility] [address] [place] [address] Hemoglobin mass conc (Bld) 11.1 g/dL Normal [facility] Comment on above: Performed By: #### H EMDF, PT, BMP3M, PHOS3, MG3, CK3 #### [facility] [address] [place], [place] #### VD25H #### [facility] [address] [place] [address] Oxygen ppres (Bld) 109.2 mm[Hg] High 80.0-100.0 [facility] Comment on above: Performed By: #### H EMDF, PT, BMP3M, PHOS3, MG3, CK3 #### [address] [address] [place], [place] #### VD25H #### [facility] [address] [place] [address] Oxygen saturation in Blood 97.8 % Normal 95.0-100.0 [facility] Comment on above: Performed By: #### H EMDF, PT, BMP3M, PHOS3, MG3, CK3 #### [address] [place], [place] #### VD25H #### [facility] [address] [place] [address] pCO2 39.8 mm[Hg] Normal 35.0-45.0 [facility] Comment on above: Performed By: #### H EMDF, PT, BMP3M, PHOS3, MG3, CK3 #### [address] [address] [place], [place] #### VD25H #### [facility] [address] [place] [address] pH (Bld) 7.472 High 7.350-7.450 [facility] Comment on above: Performed By: #### H EMDF, PT, BMP3M, PHOS3, MG3, CK3 #### [address] [place], [place] #### VD25H #### [facility] [address] [place] [address] Std Base Excess 4.5 mmol/L High -3.0-3.0 [facility] Comment on above: Performed By: #### H EMDF, PT, BMP3M, PHOS3, MG3, CK3 #### [address] [address] [place] #### VD25H #### [facility] [address] [place] [address] FIO2 60% Normal [facility] Comment on above: Performed By: #### H EMDF, PT, BMP3M, PHOS3, MG3, CK3 #### [address] [address] [place] #### VD25H #### [facility] [address] [place] [address] Basic Metabolic Panelon - Anion gap molar conc 6 Normal [facility] Comment on above: Performed By: #### H EMDF, PT, BMP3M, PHOS3, MG3, CK3 #### [address] [address] [place], [place] #### VD25H #### [facility] [address] [place] [address] Calcium mass conc 8.0 mg/dL Low 8.4-10.4 [facility] Comment on above: Performed By: #### H EMDF, PT, BMP3M, PHOS3, MG3, CK3 #### [address] [address] [place], [place] #### VD25H #### [facility] [address] [place] [address] CO2 molar conc 31 mmol/L High 22-30 [facility] Comment on above: Performed By: #### H EMDF, PT, BMP3M, PHOS3, MG3, CK3 #### [address] [address] [place], [place] #### VD25H #### [facility] [address] [place] [address] Glucose mass conc 107 mg/dL High 70-100 [facility] Comment on above: Performed By: #### H EMDF, PT, BMP3M, PHOS3, MG3, CK3 #### [address] #### VD25H #### [facility] [address] [place] [address] Urea nitrogen mass conc 22 mg/dL High 7-20 S [facility] Comment on above: Performed By: #### H EMDF, PT, BMP3M, PHOS3, MG3, CK3 #### [address] #### VD25H #### [facility] [address] [place] [address] Creatinine mass conc 0.66 mg/dL Normal 0.52-1.25 [facility] Comment on above: Performed By: #### H EMDF, PT, BMP3M, PHOS3, MG3, CK3 #### [address] #### VD25H #### [facility] [address] [place] [address] GFR/1.73 sq M predicted among blacks MDRD vol rate/area (S/P/Bld) mL/min/{1.73_m2} Normal >60 [facility] Comment on above: Performed By: #### H EMDF, PT, BMP3M, PHOS3, MG3, CK3 #### [address] #### VD25H #### [facility] [address] [place] [address] GFR/1.73 sq M predicted among non-blacks MDRD vol rate/area (S/P/Bld) mL/min/{1.73_m2} Normal >60 [facility] Comment on above: Result Comment: Sour ce- MDRD equation with creatinine calibration to IDMS(NKDEP) eGFR not recommended for drug dose adjustment Performed By: #### H EMDF, PT, BMP3M, PHOS3, MG3, CK3 #### [address] #### VD25H #### [facility] [address] [place] [address] Chloride molar conc 105 mmol/L Normal 98-107 [facility] Comment on above: Performed By: #### H EMDF, PT, BMP3M, PHOS3, MG3, CK3 #### [facility] [address] [place] #### VD25H #### [facility] [address] [place] [address] Potassium molar conc 3.9 mmol/L Normal 3.5-5.1 [facility] Comment on above: Performed By: #### H EMDF, PT, BMP3M, PHOS3, MG3, CK3 #### [facility] [address] [facility] #### VD25H #### [facility] [address] [place] [address] Sodium molar conc 142 mmol/L Normal 135-145 [facility] Comment on above: Performed By: #### H EMDF, PT, BMP3M, PHOS3, MG3, CK3 #### [facility] [address] [place] #### VD25H #### [facility] [address] [place] [address] CR Abdomen APon 07-17-2018 CR Abdomen AP Patient Name: KATHYA HOOPER Diagnostic Radiology Exam Date/Time 07/17/2018 12:46:31 EDT Exam CR Abdomen AP Ordering Physician [id number] JOYA PERRY Accession Number [id number] CPT4 Codes 20046 () Reason For Exam ileus Report Abdomen: [...] RISA Transcribed Date and Time: 07/17/2018 12:46 [facility] CR Abdomen AP Patient Name: KATHYA HOOPER Diagnostic Radiology Exam Date/Time 07/17/2018 06:25:43 EDT Exam CR Abdomen AP Ordering Physician [id number] AGUILERA Accession Number [id number] CPT4 Codes 58333 () Reason For Exam ileus Report Abdomen: [...] Time: 07/17/2018 7:17 am Signed by: MD JONHSON RISA Transcribed Date and Time: 07/17/2018 7:16 [facility] CR Chest Portableon 07-18-19 19 CR Chest Portable Patient Name: KATHYA HOOPER Diagnostic Radiology Exam Date/Time 07/17/2018 18:08:41 EDT Exam CR Chest Portable Ordering Physician SALO DAVIS Accession Number [id number] CPT4 Codes 20799 () Reason For Exam picc Report CHEST [...] and Time: 07/17/2018 7:24 Normal [facility] CR Chest Portable Patient Name: KATHYA HOOPER Diagnostic Radiology Exam Date/Time 07/17/2018 18:08:41 EDT Exam CR Chest Portable Ordering Physician SALO DAVIS Accession Number [id number] CPT4 Codes 77341 () Reason For Exam reheck line tip [...] Time: 07/17/2018 7:24 pm Signed by: MD CHARLSE JENNIFER R Transcribed Date and Time: 07/17/2018 7:21 Normal [facility] CR Chest Portable Patient Name: KATHYA HOOPER Diagnostic Radiology Exam Date/Time 07/17/2018 06:26:06 EDT Exam CR Chest Portable Ordering Physician MARIA EUGENIA PEREZ Accession Number [id number] CPT4 Codes 92379 () Reason For Exam ETT placement Report [...] and Time: 07/17/2018 7:17 Normal [facility] Hemogram w/ Autodiffon 07-17 Abs Baso Cnt 0.0 10*3/uL Normal 0.0-0.2 [facility] Comment on above: Performed By: #### H EMDF, PT, BMP3M, PHOS3, MG3, CK3 #### [facility] [address] [place], [place] #### VD25H #### [facility] [address] [place] [address] Abs Neutrophile Cnt 8.1 10*3/uL High 1.8-7.0 [facility] Comment on above: Performed By: #### H EMDF, PT, BMP3M, PHOS3, MG3, CK3 #### [facility] [address] [place] [address] #### VD25H #### [facility] [address] [place] [address] Basophils/100 WBC (Bld) 0.4 % Normal 0.0-2.0 S [facility] Comment on above: Performed By: #### H EMDF, PT, BMP3M, PHOS3, MG3, CK3 #### [facility] [address] [place] #### VD25H #### [facility] [address] [place] [address] Eosinophils #/vol (Bld) 0.1 10*3/uL Normal 0.0-0.5 [facility] Comment on above: Performed By: #### H EMDF, PT, BMP3M, PHOS3, MG3, CK3 #### [address] #### VD25H #### [facility] [address] [place] [address] Eosinophils/100 WBC (Bld) 1.4 % Normal 1.0-6.0 [facility] Comment on above: Performed By: #### H EMDF, PT, BMP3M, PHOS3, MG3, CK3 #### [address] #### VD25H #### [facility] [address] [place] [address] Erythrocyte distribution width Ratio (RBC) 13.5 % Normal 11.5-14.5 [facility] Comment on above: Performed By: #### H EMDF, PT, BMP3M, PHOS3, MG3, CK3 #### [address] #### VD25H #### [facility] [address] [place] [address] Granulocytes/100 WBC (Bld) 78.6 % Normal 40.0-80.0 [facility] Comment on above: Performed By: #### H EMDF, PT, BMP3M, PHOS3, MG3, CK3 #### [address] #### VD25H #### [facility] [address] [place] [address] Hematocrit Volume Fraction (Bld) 31.3 % Low 40.0-52.0 [facility] Comment on above: Performed By: #### H EMDF, PT, BMP3M, PHOS3, MG3, CK3 #### [facility] [address] [place], [place] #### VD25H #### [facility] [address] [place] [address] Hemoglobin mass conc (Bld) 10.4 g/dL Low 13.0-18.0 [facility] Comment on above: Performed By: #### H EMDF, PT, BMP3M, PHOS3, MG3, CK3 #### [address] #### VD25H #### [facility] [address] [place] [address] Lymphocytes #/vol (Bld) 1.0 10*3/uL Normal 1.0-4.3 [facility] Comment on above: Performed By: #### H EMDF, PT, BMP3M, PHOS3, MG3, CK3 #### [address] #### VD25H #### [facility] [address] [place] [address] Lymphocytes/100 WBC (Bld) 10.0 % Low 20.0-40.0 [facility] Comment on above: Performed By: #### H EMDF, PT, BMP3M, PHOS3, MG3, CK3 #### [address] #### VD25H #### [facility] [address] [place] [address] MCH Entitic mass (RBC) 29.3 pg Normal 26.0-34.0 [facility] Comment on above: Performed By: #### H EMDF, PT, BMP3M, PHOS3, MG3, CK3 #### [address] #### VD25H #### [facility] [address] [place] [address] MCHC mass conc (RBC) 33.3 % Normal 32.0-36.0 [facility] Comment on above: Performed By: #### H EMDF, PT, BMP3M, PHOS3, MG3, CK3 #### [address] #### VD25H #### [facility] [address] [place] [address] MCV Entitic volume (RBC) 87.9 fL Normal 80.0-98.0 [facility] Comment on above: Performed By: #### H EMDF, PT, BMP3M, PHOS3, MG3, CK3 #### [address] #### VD25H #### [place] [address] [place] [address] Monocytes #/vol (Bld) 1.0 10*3/uL High 0.0-0.8 [facility] Comment on above: Performed By: #### H EMDF, PT, BMP3M, PHOS3, MG3, CK3 #### [address] #### VD25H #### [place] [address] [place] [address] Monocytes/100 WBC (Bld) 9.6 % Normal 2.0-10.0 [facility] Comment on above: Performed By: #### H EMDF, PT, BMP3M, PHOS3, MG3, CK3 #### [address] #### VD25H #### [place] [address] [place] [address] Platelet mean volume Entitic volume (Bld) 7.6 fL Normal 7.4-10.4 [facility] Comment on above: Performed By: #### H EMDF, PT, BMP3M, PHOS3, MG3, CK3 #### [address] [place] [address] #### VD25H #### [facility] [address] [place] [address] Platelets #/vol (Bld) 307 10*3/uL Normal 140-440 [facility] Comment on above: Performed By: #### H EMDF, PT, BMP3M, PHOS3, MG3, CK3 #### [place] [address] [place], [place] #### VD25H #### [facility] [address] [place] [address] RBC #/vol (Bld) 3.56 10*6/uL Low 4.40-5.90 [facility] Comment on above: Performed By: #### H EMDF, PT, BMP3M, PHOS3, MG3, CK3 #### [address] #### VD25H #### [facility] [address] [place] [address] WBC #/vol (Bld) 10.2 10*3/uL Normal 3.6-10.7 [facility] Comment on above: Performed By: #### H EMDF, PT, BMP3M, PHOS3, MG3, CK3 #### [address] #### VD25H #### [facility] [address] [place] [address] Basic Metabolic Panelon 03- Calcium mass conc 8.1 mg/dL Low 8.4-10.4 [facility] Comment on above: Performed By: #### H EMDF, PT, BMP3M, PHOS3, MG3, CK3 #### [address] [place], [place] #### VD25H #### [facility] [address] [place] [address] Anion gap molar conc 5 Normal [facility] Comment on above: Performed By: #### H EMDF, PT, BMP3M, PHOS3, MG3, CK3 #### [address] #### VD25H #### [facility] [address] [place] [address] CO2 molar conc 32 mmol/L High 22-30 [facility] Comment on above: Performed By: #### H EMDF, PT, BMP3M, PHOS3, MG3, CK3 #### [address] #### VD25H #### [facility] [address] [place] [address] Creatinine mass conc 0.62 mg/dL Normal 0.52-1.25 [facility] Comment on above: Performed By: #### H EMDF, PT, BMP3M, PHOS3, MG3, CK3 #### [address] #### VD25H #### [place] [address] [place] [address] GFR/1.73 sq M predicted among blacks MDRD vol rate/area (S/P/Bld) mL/min/{1.73_m2} Normal >60 [facility] Comment on above: Performed By: #### H EMDF, PT, BMP3M, PHOS3, MG3, CK3 #### [address] #### VD25H #### [place] [address] [place] [address] GFR/1.73 sq M predicted among non-blacks MDRD vol rate/area (S/P/Bld) mL/min/{1.73_m2} Normal >60 [facility] Comment on above: Result Comment: Sour ce- MDRD equation with creatinine calibration to IDMS(NKDEP) eGFR not recommended for drug dose adjustment Performed By: #### H EMDF, PT, BMP3M, PHOS3, MG3, CK3 #### [address] #### VD25H #### [facility] [address] [place] [address] Glucose mass conc 103 mg/dL High 70-100 [facility] Comment on above: Performed By: #### H EMDF, PT, BMP3M, PHOS3, MG3, CK3 #### [place] [address] [facility] [place] #### VD25H #### [facility] [address] [place] [address] Urea nitrogen mass conc 20 mg/dL Normal 7-20 S [facility] Comment on above: Performed By: #### H EMDF, PT, BMP3M, PHOS3, MG3, CK3 #### [place] [address] [facility] #### VD25H #### [place] [address] [place] [address] Chloride molar conc 107 mmol/L Normal 98-107 [facility] Comment on above: Performed By: #### H EMDF, PT, BMP3M, PHOS3, MG3, CK3 #### [place] [address] [facility] #### VD25H #### [facility] [address] [place] [address] Potassium molar conc 3.7 mmol/L Normal 3.5-5.1 [facility] Comment on above: Performed By: #### H EMDF, PT, BMP3M, PHOS3, MG3, CK3 #### [place] [address] [facility] [place] #### VD25H #### [facility] [address] [place] [address] Sodium molar conc 145 mmol/L Normal 135-145 [facility] Comment on above: Performed By: #### H EMDF, PT, BMP3M, PHOS3, MG3, CK3 #### [place] [address] [facility] [place] #### VD25H #### [facility] [address] [place] [address] CR Abdomen APon 07-16-2018 CR Abdomen AP Patient Name: KATHYA HOOPER Diagnostic Radiology Exam Date/Time 07/16/2018 08:00:58 EDT Exam CR Abdomen AP Ordering Physician [id number] CARRILLOAnanda JOYA Accession Number [id number] CPT4 Codes 37838 () Reason For Exam ileus Report KUB [...] Dictated: 07/16/2018 10:03 am Dictating Physician: MD EDGAR, NIR Signed Date and Time: 07/16/2018 10:10 am Signed by: MD CANCINO AHMAD Transcribed Date and Time: 07/16/2018 10:03 Normal [facility] CR Chest Portableon 07-17-19 19 CR Chest Portable Patient Name: KATHYA HOOPER Diagnostic Radiology Exam Date/Time 07/16/2018 06:19:28 EDT Exam CR Chest Portable Ordering Physician MARIA EUGENIA PEREZ Accession Number [id number] CPT4 Codes 43710 () Reason For Exam ETT placement Report [...] and Time: 07/16/2018 10:10 Normal [facility] Hemogram w/ Autodiffon 07-16 Abs Baso Cnt 0.0 10*3/uL Normal 0.0-0.2 [facility] Comment on above: Performed By: #### H EMDF, PT, BMP3M, PHOS3, MG3, CK3 #### [place] [address] [place], [place] #### VD25H #### [facility] [address] [place] [address] Abs Neutrophile Cnt 8.7 10*3/uL High 1.8-7.0 [facility] Comment on above: Performed By: #### H EMDF, PT, BMP3M, PHOS3, MG3, CK3 #### [facility] [address] [place], [place] #### VD25H #### [facility] [address] [place] [address] Basophils/100 WBC (Bld) 0.2 % Normal 0.0-2.0 S [facility] Comment on above: Performed By: #### H EMDF, PT, BMP3M, PHOS3, MG3, CK3 #### [address] #### VD25H #### [facility] [address] [place] [address] Eosinophils #/vol (Bld) 0.1 10*3/uL Normal 0.0-0.5 [facility] Comment on above: Performed By: #### H EMDF, PT, BMP3M, PHOS3, MG3, CK3 #### [facility] [address] [place], [place] #### VD25H #### [facility] [address] [place] [address] Eosinophils/100 WBC (Bld) 0.7 % Low 1.0-6.0 [facility] Comment on above: Performed By: #### H EMDF, PT, BMP3M, PHOS3, MG3, CK3 #### [address] #### VD25H #### [facility] [address] [place] [address] Erythrocyte distribution width Ratio (RBC) 13.7 % Normal 11.5-14.5 [facility] Comment on above: Performed By: #### H EMDF, PT, BMP3M, PHOS3, MG3, CK3 #### [address] #### VD25H #### [facility] [address] [place] [address] Granulocytes/100 WBC (Bld) 83.0 % High 40.0-80.0 [facility] Comment on above: Performed By: #### H EMDF, PT, BMP3M, PHOS3, MG3, CK3 #### [address] #### VD25H #### [facility] [address] [place] [address] Hematocrit Volume Fraction (Bld) 30.3 % Low 40.0-52.0 [facility] Comment on above: Performed By: #### H EMDF, PT, BMP3M, PHOS3, MG3, CK3 #### [address] #### VD25H #### [facility] [address] [place] [address] Hemoglobin mass conc (Bld) 10.5 g/dL Low 13.0-18.0 [facility] Comment on above: Performed By: #### H EMDF, PT, BMP3M, PHOS3, MG3, CK3 #### [address] [address] [address] [place], [place] #### VD25H #### [facility] [address] [place] [address] Lymphocytes #/vol (Bld) 0.7 10*3/uL Low 1.0-4.3 [facility] Comment on above: Performed By: #### H EMDF, PT, BMP3M, PHOS3, MG3, CK3 #### [address] [address] [address] [place], [place] #### VD25H #### [facility] [address] [place] [address] Lymphocytes/100 WBC (Bld) 6.7 % Low 20.0-40.0 [facility] Comment on above: Performed By: #### H EMDF, PT, BMP3M, PHOS3, MG3, CK3 #### [address] #### VD25H #### [facility] [address] [place] [address] MCH Entitic mass (RBC) 30.2 pg Normal 26.0-34.0 [facility] Comment on above: Performed By: #### H EMDF, PT, BMP3M, PHOS3, MG3, CK3 #### [address] #### VD25H #### [facility] [address] [place] [address] MCHC mass conc (RBC) 34.6 % Normal 32.0-36.0 [facility] Comment on above: Performed By: #### H EMDF, PT, BMP3M, PHOS3, MG3, CK3 #### [address] #### VD25H #### [facility] [address] [place] [address] MCV Entitic volume (RBC) 87.3 fL Normal 80.0-98.0 [facility] Comment on above: Performed By: #### H EMDF, PT, BMP3M, PHOS3, MG3, CK3 #### [address] [place] #### VD25H #### [facility] [address] [place] [address] Monocytes #/vol (Bld) 1.0 10*3/uL High 0.0-0.8 [facility] Comment on above: Performed By: #### H EMDF, PT, BMP3M, PHOS3, MG3, CK3 #### [address] [place] #### VD25H #### [facility] [address] [place] [address] Monocytes/100 WBC (Bld) 9.4 % Normal 2.0-10.0 S [facility] Comment on above: Performed By: #### H EMDF, PT, BMP3M, PHOS3, MG3, CK3 #### [address] #### VD25H #### [facility] [address] [place] [address] Platelet mean volume Entitic volume (Bld) 6.9 fL Low 7.4-10.4 [facility] Comment on above: Performed By: #### H EMDF, PT, BMP3M, PHOS3, MG3, CK3 #### [address] #### VD25H #### [facility] [address] [place] [address] Platelets #/vol (Bld) 254 10*3/uL Normal 140-440 [facility] Comment on above: Performed By: #### H EMDF, PT, BMP3M, PHOS3, MG3, CK3 #### [address] #### VD25H #### [facility] [address] [place] [address] RBC #/vol (Bld) 3.47 10*6/uL Low 4.40-5.90 [facility] Comment on above: Performed By: #### H EMDF, PT, BMP3M, PHOS3, MG3, CK3 #### [address] #### VD25H #### [facility] [address] [place] [address] WBC #/vol (Bld) 10.5 10*3/uL Normal 3.6-10.7 [facility] Comment on above: Performed By: #### H EMDF, PT, BMP3M, PHOS3, MG3, CK3 #### [address] #### VD25H #### [place] [address] [place] [address] Arterial Blood Gaseson 07-15 CO2 molar conc 26.7 mmol/L Normal 23.0-27.0 [facility] Comment on above: Performed By: #### H EMDF, PT, BMP3M, PHOS3, MG3, CK3 #### [address] #### VD25H #### [facility] [address] [place] [address] FIO2 50% Normal [facility] Comment on above: Performed By: #### H EMDF, PT, BMP3M, PHOS3, MG3, CK3 #### [address] #### VD25H #### [facility] [address] [place] [address] HCO3 molar conc (Bld) 25.7 mmol/L High 21.0-25.0 [facility] Comment on above: Performed By: #### H EMDF, PT, BMP3M, PHOS3, MG3, CK3 #### [address] #### VD25H #### [facility] [address] [place] [address] Hemoglobin mass conc (Bld) 12.5 g/dL Normal [facility] Comment on above: Performed By: #### H EMDF, PT, BMP3M, PHOS3, MG3, CK3 #### [facility] [address] [place], [place] #### VD25H #### [facility] [address] [place] [address] Oxygen ppres (Bld) 90.4 mm[Hg] Normal 80.0-100.0 [facility] Comment on above: Performed By: #### H EMDF, PT, BMP3M, PHOS3, MG3, CK3 #### [address] [address] [address] [place] #### VD25H #### [facility] [address] [place] [address] Oxygen saturation in Blood 96.8 % Normal 95.0-100.0 [facility] Comment on above: Performed By: #### H EMDF, PT, BMP3M, PHOS3, MG3, CK3 #### [address] [address] [address] [place] #### VD25H #### [facility] [address] [place] [address] pCO2 33.4 mm[Hg] Low 35.0-45.0 [facility] Comment on above: Performed By: #### H EMDF, PT, BMP3M, PHOS3, MG3, CK3 #### [facility] [address] [place] #### VD25H #### [facility] [address] [place] [address] pH (Bld) 7.504 High 7.350-7.450 [facility] Comment on above: Performed By: #### H EMDF, PT, BMP3M, PHOS3, MG3, CK3 #### [place] [address] [address] [facility] #### VD25H #### [facility] [address] [place] [address] Std Base Excess 2.9 mmol/L Normal -3.0-3.0 [facility] Comment on above: Performed By: #### H EMDF, PT, BMP3M, PHOS3, MG3, CK3 #### [facility] [address] [place] #### VD25H #### [facility] [address] [place] [address] Basic Metabolic Panelon 06-29 Anion gap molar conc 8 Normal [facility] Comment on above: Performed By: #### H EMDF, PT, BMP3M, PHOS3, MG3, CK3 #### [address] [address] [address] [place] #### VD25H #### [facility] [address] [place] [address] Calcium mass conc 8.6 mg/dL Normal 8.4-10.4 [facility] Comment on above: Performed By: #### H EMDF, PT, BMP3M, PHOS3, MG3, CK3 #### [place] [address] [address] [facility] #### VD25H #### [facility] [address] [place] [address] CO2 molar conc 29 mmol/L Normal 22-30 [facility] Comment on above: Performed By: #### H EMDF, PT, BMP3M, PHOS3, MG3, CK3 #### [place] [address] [address] [facility] #### VD25H #### [facility] [address] [place] [address] Glucose mass conc 119 mg/dL High 70-100 [facility] Comment on above: Performed By: #### H EMDF, PT, BMP3M, PHOS3, MG3, CK3 #### [place] [address] [address] [facility] #### VD25H #### [facility] [address] [place] [address] Urea nitrogen mass conc 23 mg/dL High 7-20 S [facility] Comment on above: Performed By: #### H EMDF, PT, BMP3M, PHOS3, MG3, CK3 #### [address] [phone] #### VD25H #### [facility] [address] [place] [address] Creatinine mass conc 0.73 mg/dL Normal 0.52-1.25 [facility] Comment on above: Performed By: #### H EMDF, PT, BMP3M, PHOS3, MG3, CK3 #### [address] #### VD25H #### [facility] [address] [place] [address] GFR/1.73 sq M predicted among blacks MDRD vol rate/area (S/P/Bld) mL/min/{1.73_m2} Normal >60 [facility] Comment on above: Performed By: #### H EMDF, PT, BMP3M, PHOS3, MG3, CK3 #### [address] [address] #### VD25H #### [facility] [address] [place] [address] GFR/1.73 sq M predicted among non-blacks MDRD vol rate/area (S/P/Bld) mL/min/{1.73_m2} Normal >60 [facility] Comment on above: Result Comment: Sour ce- MDRD equation with creatinine calibration to IDMS(NKDEP) eGFR not recommended for drug dose adjustment Performed By: #### H EMDF, PT, BMP3M, PHOS3, MG3, CK3 #### [address] [address] #### VD25H #### [facility] [address] [place] [address] Potassium molar conc 4.1 mmol/L Normal 3.5-5.1 [facility] Comment on above: Performed By: #### H EMDF, PT, BMP3M, PHOS3, MG3, CK3 #### [facility] [address] [place] [address] #### VD25H #### [facility] [address] [place] [address] Sodium molar conc 144 mmol/L Normal 135-145 [facility] Comment on above: Performed By: #### H EMDF, PT, BMP3M, PHOS3, MG3, CK3 #### [facility] [address] [place] [facility] [address] #### VD25H #### [facility] [address] [place] [address] Chloride molar conc 107 mmol/L Normal 98-107 [facility] Comment on above: Performed By: #### H EMDF, PT, BMP3M, PHOS3, MG3, CK3 #### [facility] [address] [place] [address] #### VD25H #### [facility] [address] [place] [address] CR Abdomen APon 07-15-2018 CR Abdomen AP Patient Name: KATHYA HOOPER Diagnostic Radiology Exam Date/Time 07/15/2018 09:25:44 EDT Exam CR Abdomen AP Ordering Physician [id number] THAKKAR Accession Number [id number] CPT4 Codes 65736 () Reason For Exam ileus Report EXAMINATION: [...] and Time: 07/15/2018 10:07 Normal [facility] CR Chest Portableon 07-16-19 19 CR Chest Portable Patient Name: KATHYA HOOPER Diagnostic Radiology Exam Date/Time 07/15/2018 06:00:00 EDT Exam CR Chest Portable Ordering Physician MARIA EUGENIA PEREZ Accession Number [id number] CPT4 Codes 50897 () Reason For Exam ETT placement Report [...] and Time: 07/15/2018 9:14 Normal [facility] CULT./ST. RESPIRATORYon - CULT./ST. RESPIRATORY CULT./ST. [...] Rare gram negative bacilli. Normal [facility] Comment on above: Order Comment: Speci men Source Comment:Sputum, Suctioned Performed By: #### H EMDF, PT, BMP3M, PHOS3, MG3, CK3 #### [place] [id number] #### VD25H #### [facility] [address] [place] [address] Hemogram w/ Autodiffon 07-15 Abs Baso Cnt 0.0 10*3/uL Normal 0.0-0.2 [facility] Comment on above: Performed By: #### H EMDF, PT, BMP3M, PHOS3, MG3, CK3 #### [address] [address] [address] [place] #### VD25H #### [facility] [address] [place] [address] Abs Neutrophile Cnt 13.2 10*3/uL High 1.8-7.0 [facility] Comment on above: Performed By: #### H EMDF, PT, BMP3M, PHOS3, MG3, CK3 #### [address] [address] [place] #### VD25H #### [facility] [address] [place] [address] Basophils/100 WBC (Bld) 0.2 % Normal 0.0-2.0 S [facility] Comment on above: Performed By: #### H EMDF, PT, BMP3M, PHOS3, MG3, CK3 #### [place] [place] [address] [place] #### VD25H #### [facility] [address] [place] [address] Eosinophils #/vol (Bld) 0.0 10*3/uL Normal 0.0-0.5 [facility] Comment on above: Performed By: #### H EMDF, PT, BMP3M, PHOS3, MG3, CK3 #### [address] [place], [place] #### VD25H #### [facility] [address] [place] [address] Eosinophils/100 WBC (Bld) 0.1 % Low 1.0-6.0 [facility] Comment on above: Performed By: #### H EMDF, PT, BMP3M, PHOS3, MG3, CK3 #### [address] #### VD25H #### [facility] [address] [place] [address] Erythrocyte distribution width Ratio (RBC) 13.9 % Normal 11.5-14.5 [facility] Comment on above: Performed By: #### H EMDF, PT, BMP3M, PHOS3, MG3, CK3 #### [address] #### VD25H #### [facility] [address] [place] [address] Granulocytes/100 WBC (Bld) 88.1 % High 40.0-80.0 [facility] Comment on above: Performed By: #### H EMDF, PT, BMP3M, PHOS3, MG3, CK3 #### [address] #### VD25H #### [facility] [address] [place] [address] Hematocrit Volume Fraction (Bld) 35.3 % Low 40.0-52.0 [facility] Comment on above: Performed By: #### H EMDF, PT, BMP3M, PHOS3, MG3, CK3 #### [address] #### VD25H #### [facility] [address] [place] [address] Hemoglobin mass conc (Bld) 11.9 g/dL Low 13.0-18.0 [facility] Comment on above: Performed By: #### H EMDF, PT, BMP3M, PHOS3, MG3, CK3 #### [address] #### VD25H #### [facility] [address] [place] [address] Lymphocytes #/vol (Bld) 0.8 10*3/uL Low 1.0-4.3 [facility] Comment on above: Performed By: #### H EMDF, PT, BMP3M, PHOS3, MG3, CK3 #### [address] [place], [place] #### VD25H #### [facility] [address] [place] [address] Lymphocytes/100 WBC (Bld) 5.0 % Low 20.0-40.0 [facility] Comment on above: Performed By: #### H EMDF, PT, BMP3M, PHOS3, MG3, CK3 #### [address] #### VD25H #### [facility] [address] [place] [address] MCH Entitic mass (RBC) 29.5 pg Normal 26.0-34.0 [facility] Comment on above: Performed By: #### H EMDF, PT, BMP3M, PHOS3, MG3, CK3 #### [address] #### VD25H #### [facility] [address] [place] [address] MCHC mass conc (RBC) 33.8 % Normal 32.0-36.0 [facility] Comment on above: Performed By: #### H EMDF, PT, BMP3M, PHOS3, MG3, CK3 #### [address] #### VD25H #### [facility] [address] [facility] [place] [address] MCV Entitic volume (RBC) 87.2 fL Normal 80.0-98.0 [facility] Comment on above: Performed By: #### H EMDF, PT, BMP3M, PHOS3, MG3, CK3 #### [address] #### VD25H #### [facility] [address] [place] [address] Monocytes #/vol (Bld) 1.0 10*3/uL High 0.0-0.8 [facility] Comment on above: Performed By: #### H EMDF, PT, BMP3M, PHOS3, MG3, CK3 #### [facility] [address] [place] #### VD25H #### [facility] [address] [place] [address] Monocytes/100 WBC (Bld) 6.6 % Normal 2.0-10.0 S [facility] Comment on above: Performed By: #### H EMDF, PT, BMP3M, PHOS3, MG3, CK3 #### [place] [address] [address] [place] #### VD25H #### [facility] [address] [place] [address] Platelet mean volume Entitic volume (Bld) 7.9 fL Normal 7.4-10.4 [facility] Comment on above: Performed By: #### H EMDF, PT, BMP3M, PHOS3, MG3, CK3 #### [place] [address] [place] #### VD25H #### [facility] [address] [place] [address] Platelets #/vol (Bld) 319 10*3/uL Normal 140-440 [facility] Comment on above: Performed By: #### H EMDF, PT, BMP3M, PHOS3, MG3, CK3 #### [facility] [address] [place] #### VD25H #### [facility] [address] [place] [address] RBC #/vol (Bld) 4.05 10*6/uL Low 4.40-5.90 [facility] Comment on above: Performed By: #### H EMDF, PT, BMP3M, PHOS3, MG3, CK3 #### [address] #### VD25H #### [facility] [address] [place] [address] WBC #/vol (Bld) 15.0 10*3/uL High 3.6-10.7 [facility] Comment on above: Performed By: #### H EMDF, PT, BMP3M, PHOS3, MG3, CK3 #### [place] [address] [place] #### VD25H #### [facility] [address] [place] [address] Basic Metabolic Panelon - Anion gap molar conc 9 Normal [facility] Comment on above: Performed By: #### H EMDF, PT, BMP3M, PHOS3, MG3, CK3 #### [address] #### VD25H #### [facility] [address] [place] [address] Calcium mass conc 7.6 mg/dL Low 8.4-10.4 [facility] Comment on above: Performed By: #### H EMDF, PT, BMP3M, PHOS3, MG3, CK3 #### [address] #### VD25H #### [facility] [address] [place] [address] CO2 molar conc 26 mmol/L Normal 22-30 [facility] Comment on above: Performed By: #### H EMDF, PT, BMP3M, PHOS3, MG3, CK3 #### [address] [place] #### VD25H #### [facility] [address] [place] [address] Glucose mass conc 148 mg/dL High 70-100 [facility] Comment on above: Performed By: #### H EMDF, PT, BMP3M, PHOS3, MG3, CK3 #### [address] [address] [place], [place] #### VD25H #### [facility] [address] [place] [address] Urea nitrogen mass conc 16 mg/dL Normal 7-20 S [facility] Comment on above: Performed By: #### H EMDF, PT, BMP3M, PHOS3, MG3, CK3 #### [facility] [address] [place], [place] #### VD25H #### [facility] [address] [place] [address] Creatinine mass conc 0.62 mg/dL Normal 0.52-1.25 [facility] Comment on above: Performed By: #### H EMDF, PT, BMP3M, PHOS3, MG3, CK3 #### [address] #### VD25H #### [facility] [address] [place] [address] GFR/1.73 sq M predicted among blacks MDRD vol rate/area (S/P/Bld) mL/min/{1.73_m2} Normal >60 [facility] Comment on above: Performed By: #### H EMDF, PT, BMP3M, PHOS3, MG3, CK3 #### [address] #### VD25H #### [facility] [address] [place] [address] GFR/1.73 sq M predicted among non-blacks MDRD vol rate/area (S/P/Bld) mL/min/{1.73_m2} Normal >60 [facility] Comment on above: Result Comment: Sour ce- MDRD equation with creatinine calibration to IDMS(NKDEP) eGFR not recommended for drug dose adjustment Performed By: #### H EMDF, PT, BMP3M, PHOS3, MG3, CK3 #### [address] #### VD25H #### [facility] [address] [place] [address] Potassium molar conc 4.5 mmol/L Normal 3.5-5.1 [facility] Comment on above: Performed By: #### H EMDF, PT, BMP3M, PHOS3, MG3, CK3 #### [facility] [address] [place] [address] #### VD25H #### [facility] [address] [place] [address] Sodium molar conc 137 mmol/L Normal 135-145 [facility] Comment on above: Performed By: #### H EMDF, PT, BMP3M, PHOS3, MG3, CK3 #### [facility] [address] [place] [address] #### VD25H #### [facility] [address] [place] [address] Chloride molar conc 103 mmol/L Normal 98-107 [facility] Comment on above: Performed By: #### H EMDF, PT, BMP3M, PHOS3, MG3, CK3 #### [facility] [address] [place] [address] #### VD25H #### [facility] [address] [place] [address] CR Abdomen APon 07-14-2018 CR Abdomen AP Patient Name: KATHYA HOOPER Diagnostic Radiology Exam Date/Time 07/14/2018 19:15:43 EDT Exam CR Abdomen AP Ordering Physician [id number] AGUILERA Accession Number [id number] CPT4 Codes 29214 () Reason For Exam Distended with emesis [...] and Time: 07/14/2018 7:28 Normal [facility] CR Chest Portableon 07-15-19 19 CR Chest Portable Patient Name: KATHYA HOOPER Diagnostic Radiology Exam Date/Time 07/14/2018 06:53:29 EDT Exam CR Chest Portable Ordering Physician MARIA EUGENIA PEREZ Accession Number [id number] CPT4 Codes 76536 () Reason For Exam ETT placement Report [...] and Time: 07/14/2018 11:51 Normal [facility] Hemogram w/ Autodiffon 07-14 Abs Baso Cnt 0.0 10*3/uL Normal 0.0-0.2 [facility] Comment on above: Performed By: #### H EMDF, PT, BMP3M, PHOS3, MG3, CK3 #### [facility] [address] [place] [address] #### VD25H #### [facility] [address] [place] [address] Abs Neutrophile Cnt 11.7 10*3/uL High 1.8-7.0 [facility] Comment on above: Performed By: #### H EMDF, PT, BMP3M, PHOS3, MG3, CK3 #### [facility] [address] [place] #### VD25H #### [facility] [address] [place] [address] Basophils/100 WBC (Bld) 0.3 % Normal 0.0-2.0 S [facility] Comment on above: Performed By: #### H EMDF, PT, BMP3M, PHOS3, MG3, CK3 #### [place] [address] [place] #### VD25H #### [facility] [address] [place] [address] Eosinophils #/vol (Bld) 0.0 10*3/uL Normal 0.0-0.5 [facility] Comment on above: Performed By: #### H EMDF, PT, BMP3M, PHOS3, MG3, CK3 #### [address] [place], [place] #### VD25H #### [facility] [address] [place] [address] Eosinophils/100 WBC (Bld) 0.1 % Low 1.0-6.0 [facility] Comment on above: Performed By: #### H EMDF, PT, BMP3M, PHOS3, MG3, CK3 #### [address] #### VD25H #### [facility] [address] [place] [address] Erythrocyte distribution width Ratio (RBC) 13.8 % Normal 11.5-14.5 [facility] Comment on above: Performed By: #### H EMDF, PT, BMP3M, PHOS3, MG3, CK3 #### [address] #### VD25H #### [facility] [address] [place] [address] Granulocytes/100 WBC (Bld) 89.1 % High 40.0-80.0 [facility] Comment on above: Performed By: #### H EMDF, PT, BMP3M, PHOS3, MG3, CK3 #### [place] [address] [address] [place] #### VD25H #### [facility] [address] [place] [address] Hematocrit Volume Fraction (Bld) 33.8 % Low 40.0-52.0 [facility] Comment on above: Performed By: #### H EMDF, PT, BMP3M, PHOS3, MG3, CK3 #### [address] #### VD25H #### [facility] [address] [place] [address] Hemoglobin mass conc (Bld) 11.5 g/dL Low 13.0-18.0 [facility] Comment on above: Performed By: #### H EMDF, PT, BMP3M, PHOS3, MG3, CK3 #### [address] #### [id number] #### [facility] [address] [place] [address] Lymphocytes #/vol (Bld) 0.6 10*3/uL Low 1.0-4.3 [facility] Comment on above: Performed By: #### H EMDF, PT, BMP3M, PHOS3, MG3, CK3 #### [address] #### [id number] #### [facility] [address] [place] [address] Lymphocytes/100 WBC (Bld) 4.5 % Low 20.0-40.0 [facility] Comment on above: Performed By: #### H EMDF, PT, BMP3M, PHOS3, MG3, CK3 #### [address] #### VD25H #### [facility] [address] [place] [address] MCH Entitic mass (RBC) 29.6 pg Normal 26.0-34.0 [facility] Comment on above: Performed By: #### H EMDF, PT, BMP3M, PHOS3, MG3, CK3 #### [facility] [address] [place] #### VD25H #### [facility] [address] [place] [address] MCHC mass conc (RBC) 33.9 % Normal 32.0-36.0 [facility] Comment on above: Performed By: #### H EMDF, PT, BMP3M, PHOS3, MG3, CK3 #### [address] #### VD25H #### [facility] [address] [place] [address] MCV Entitic volume (RBC) 87.3 fL Normal 80.0-98.0 [facility] Comment on above: Performed By: #### H EMDF, PT, BMP3M, PHOS3, MG3, CK3 #### [address] #### VD25H #### [facility] [address] [place] [address] Monocytes #/vol (Bld) 0.8 10*3/uL Normal 0.0-0.8 [facility] Comment on above: Performed By: #### H EMDF, PT, BMP3M, PHOS3, MG3, CK3 #### [place] [address] [place], [place] #### VD25H #### [facility] [address] [place] [address] Monocytes/100 WBC (Bld) 6.0 % Normal 2.0-10.0 S [facility] Comment on above: Performed By: #### H EMDF, PT, BMP3M, PHOS3, MG3, CK3 #### [address] #### VD25H #### [facility] [address] [place] [address] Platelet mean volume Entitic volume (Bld) 8.1 fL Normal 7.4-10.4 [facility] Comment on above: Performed By: #### H EMDF, PT, BMP3M, PHOS3, MG3, CK3 #### [facility] [address] [place] #### VD25H #### [facility] [address] [place] [address] Platelets #/vol (Bld) 196 10*3/uL Normal 140-440 [facility] Comment on above: Performed By: #### H EMDF, PT, BMP3M, PHOS3, MG3, CK3 #### [address] #### VD25H #### [facility] [address] [place] [address] RBC #/vol (Bld) 3.87 10*6/uL Low 4.40-5.90 [facility] Comment on above: Performed By: #### H EMDF, PT, BMP3M, PHOS3, MG3, CK3 #### [address] #### VD25H #### [facility] [address] [place] [address] WBC #/vol (Bld) 13.2 10*3/uL High 3.6-10.7 [facility] Comment on above: Performed By: #### H EMDF, PT, BMP3M, PHOS3, MG3, CK3 #### [address] [place] #### VD25H #### [facility] [address] [place] [address] Add on test from HISon 07-13 Add on test from HIS Rejected Normal [facility] Comment on above: Result Comment: No s pecimen available for addon. Performed By: #### H EMDF, PT, BMP3M, PHOS3, MG3, CK3 #### [address] #### VD25H #### [facility] [address] [place] [address] Arterial Blood Gaseson 07-13 CO2 molar conc 25.6 mmol/L Normal 23.0-27.0 [facility] Comment on above: Performed By: #### H EMDF, PT, BMP3M, PHOS3, MG3, CK3 #### [address] #### VD25H #### [facility] [address] [place] [address] HCO3 molar conc (Bld) 24.5 mmol/L Normal 21.0-25.0 [facility] Comment on above: Performed By: #### H EMDF, PT, BMP3M, PHOS3, MG3, CK3 #### [address] #### VD25H #### [place] [address] [place] [address] Hemoglobin mass conc (Bld) 9.7 g/dL Normal ScreenOnly [facility] Comment on above: Performed By: #### H EMDF, PT, BMP3M, PHOS3, MG3, CK3 #### [address] #### VD25H #### [place] [address] [place] [address] Oxygen ppres (Bld) 99.9 mm[Hg] Normal 80.0-100.0 [facility] Comment on above: Performed By: #### H EMDF, PT, BMP3M, PHOS3, MG3, CK3 #### [address] #### VD25H #### [place] [address] [place] [address] Oxygen saturation in Blood 97.5 % Normal 95.0-100.0 [facility] Comment on above: Performed By: #### H EMDF, PT, BMP3M, PHOS3, MG3, CK3 #### [address] [place] #### VD25H #### [facility] [address] [place] [address] pCO2 36.0 mm[Hg] Normal 35.0-45.0 [facility] Comment on above: Performed By: #### H EMDF, PT, BMP3M, PHOS3, MG3, CK3 #### [place] [address] [place] #### VD25H #### [facility] [address] [place] [address] pH (Bld) 7.450 Normal 7.350-7.450 [facility] Comment on above: Performed By: #### H EMDF, PT, BMP3M, PHOS3, MG3, CK3 #### [address] #### VD25H #### [address] [place] [address] Std Base Excess 0.6 mmol/L Normal -3.0-3.0 [facility] Comment on above: Performed By: #### H EMDF, PT, BMP3M, PHOS3, MG3, CK3 #### [address] #### VD25H #### [address] [place] [address] FIO2 .50 Normal [facility] Comment on above: Performed By: #### H EMDF, PT, BMP3M, PHOS3, MG3, CK3 #### [address] #### VD25H #### [place] [address] [place] [address] Basic Metabolic Panelon - Calcium mass conc 7.6 mg/dL Low 8.4-10.4 [facility] Comment on above: Performed By: #### H EMDF, PT, BMP3M, PHOS3, MG3, CK3 #### [facility] [address] [facility] [address] #### VD25H #### [facility] [address] [place] [address] Glucose mass conc 120 mg/dL High 70-100 [facility] Comment on above: Performed By: #### H EMDF, PT, BMP3M, PHOS3, MG3, CK3 #### [place] [address] [facility] [address] #### VD25H #### [facility] [address] [place] [address] Anion gap molar conc 7 Normal [facility] Comment on above: Performed By: #### H EMDF, PT, BMP3M, PHOS3, MG3, CK3 #### [place] [address] [facility] #### VD25H #### [facility] [address] [place] [address] CO2 molar conc 27 mmol/L Normal 22-30 [facility] Comment on above: Performed By: #### H EMDF, PT, BMP3M, PHOS3, MG3, CK3 #### [place] [address] [facility] #### VD25H #### [facility] [address] [place] [address] Creatinine mass conc 0.62 mg/dL Normal 0.52-1.25 [facility] Comment on above: Performed By: #### H EMDF, PT, BMP3M, PHOS3, MG3, CK3 #### [place] [address] [place] [address] #### VD25H #### [facility] [address] [place] [address] GFR/1.73 sq M predicted among blacks MDRD vol rate/area (S/P/Bld) mL/min/{1.73_m2} Normal >60 [facility] Comment on above: Performed By: #### H EMDF, PT, BMP3M, PHOS3, MG3, CK3 #### [facility] [address] [facility] #### VD25H #### [facility] [address] [place] [address] GFR/1.73 sq M predicted among non-blacks MDRD vol rate/area (S/P/Bld) mL/min/{1.73_m2} Normal >60 [facility] Comment on above: Result Comment: Sour ce- MDRD equation with creatinine calibration to IDMS(NKDEP) eGFR not recommended for drug dose adjustment Performed By: #### H EMDF, PT, BMP3M, PHOS3, MG3, CK3 #### [place] [address] [facility] #### VD25H #### [facility] [address] [place] [address] Urea nitrogen mass conc 17 mg/dL Normal 7-20 S [facility] Comment on above: Performed By: #### H EMDF, PT, BMP3M, PHOS3, MG3, CK3 #### [place] [address] [facility] [place] #### VD25H #### [facility] [address] [place] [address] Chloride molar conc 105 mmol/L Normal 98-107 [facility] Comment on above: Performed By: #### H EMDF, PT, BMP3M, PHOS3, MG3, CK3 #### [facility] [address] [facility] #### VD25H #### [facility] [address] [place] [address] Potassium molar conc 3.8 mmol/L Normal 3.5-5.1 [facility] Comment on above: Performed By: #### H EMDF, PT, BMP3M, PHOS3, MG3, CK3 #### [place] [address] [facility] [place] #### VD25H #### [facility] [address] [place] [address] Sodium molar conc 139 mmol/L Normal 135-145 [facility] Comment on above: Performed By: #### H EMDF, PT, BMP3M, PHOS3, MG3, CK3 #### [facility] [address] [place] [address] [facility] [place] [address] #### VD25H #### [facility] [address] [place] [address] CR Chest Portableon 07-14-19 19 CR Chest Portable Patient Name: KATHYA HOOPER Diagnostic Radiology Exam Date/Time 07/13/2018 06:05:45 EDT Exam CR Chest Portable Ordering Physician MARIA EUGENIA PEREZ Accession Number [id number] CPT4 Codes 48958 () Reason For Exam ETT placement Report [...] and Time: 07/13/2018 6:33 Normal [facility] Calcium,Ionizedon 07-13-2018 Ionized Ca,Measured 4.10 mg/dL Low 4.30-5.20 [facility] Comment on above: Performed By: #### H EMDF, PT, BMP3M, PHOS3, MG3, CK3 #### [address] #### VD25H #### [facility] [address] [facility] [place] [address] pH, Ionized Calcium 7.40 Normal 7.31-7.46 [facility] Comment on above: Performed By: #### H EMDF, PT, BMP3M, PHOS3, MG3, CK3 #### [address] #### VD25H #### [place] [address] [place] [address] Hemogram w/ Autodiffon 07-13 Abs Baso Cnt 0.0 10*3/uL Normal 0.0-0.2 [facility] Comment on above: Performed By: #### H EMDF, PT, BMP3M, PHOS3, MG3, CK3 #### [address] #### VD25H #### [place] [address] [place] [address] Abs Neutrophile Cnt 11.2 10*3/uL High 1.8-7.0 [facility] Comment on above: Performed By: #### H EMDF, PT, BMP3M, PHOS3, MG3, CK3 #### [address] #### VD25H #### [address] [facility] [place] [address] Basophils/100 WBC (Bld) 0.3 % Normal 0.0-2.0 S [facility] Comment on above: Performed By: #### H EMDF, PT, BMP3M, PHOS3, MG3, CK3 #### [address] #### VD25H #### [place] [address] [facility] [place] [address] Eosinophils #/vol (Bld) 0.2 10*3/uL Normal 0.0-0.5 [facility] Comment on above: Performed By: #### H EMDF, PT, BMP3M, PHOS3, MG3, CK3 #### [facility] [address] [place] [address] #### VD25H #### [facility] [address] [place] [address] Eosinophils/100 WBC (Bld) 1.1 % Normal 1.0-6.0 [facility] Comment on above: Performed By: #### H EMDF, PT, BMP3M, PHOS3, MG3, CK3 #### [facility] [address] [place] #### VD25H #### [facility] [address] [place] [address] Erythrocyte distribution width Ratio (RBC) 13.9 % Normal 11.5-14.5 [facility] Comment on above: Performed By: #### H EMDF, PT, BMP3M, PHOS3, MG3, CK3 #### [facility] [address] [place], [place] #### VD25H #### [facility] [address] [place] [address] Granulocytes/100 WBC (Bld) 82.2 % High 40.0-80.0 [facility] Comment on above: Performed By: #### H EMDF, PT, BMP3M, PHOS3, MG3, CK3 #### [facility] [address] [place], [place] #### VD25H #### [facility] [address] [place] [address] Hematocrit Volume Fraction (Bld) 36.7 % Low 40.0-52.0 [facility] Comment on above: Performed By: #### H EMDF, PT, BMP3M, PHOS3, MG3, CK3 #### [facility] [address] [place], [place] #### VD25H #### [facility] [address] [place] [address] Hemoglobin mass conc (Bld) 12.6 g/dL Low 13.0-18.0 [facility] Comment on above: Performed By: #### H EMDF, PT, BMP3M, PHOS3, MG3, CK3 #### [address] [place] #### VD25H #### [facility] [address] [place] [address] Lymphocytes #/vol (Bld) 1.1 10*3/uL Normal 1.0-4.3 [facility] Comment on above: Performed By: #### H EMDF, PT, BMP3M, PHOS3, MG3, CK3 #### [address] #### VD25H #### [facility] [address] [place] [address] Lymphocytes/100 WBC (Bld) 8.2 % Low 20.0-40.0 [facility] Comment on above: Performed By: #### H EMDF, PT, BMP3M, PHOS3, MG3, CK3 #### [address] #### VD25H #### [facility] [address] [place] [address] MCH Entitic mass (RBC) 29.6 pg Normal 26.0-34.0 [facility] Comment on above: Performed By: #### H EMDF, PT, BMP3M, PHOS3, MG3, CK3 #### [address] #### VD25H #### [facility] [address] [place] [address] MCHC mass conc (RBC) 34.4 % Normal 32.0-36.0 [facility] Comment on above: Performed By: #### H EMDF, PT, BMP3M, PHOS3, MG3, CK3 #### [address] #### VD25H #### [facility] [address] [place] [address] MCV Entitic volume (RBC) 86.2 fL Normal 80.0-98.0 [facility] Comment on above: Performed By: #### H EMDF, PT, BMP3M, PHOS3, MG3, CK3 #### [place] [address] [place] #### VD25H #### [facility] [address] [place] [address] Monocytes #/vol (Bld) 1.1 10*3/uL High 0.0-0.8 [facility] Comment on above: Performed By: #### H EMDF, PT, BMP3M, PHOS3, MG3, CK3 #### [address] #### VD25H #### [facility] [address] [place] [address] Monocytes/100 WBC (Bld) 8.2 % Normal 2.0-10.0 S [facility] Comment on above: Performed By: #### H EMDF, PT, BMP3M, PHOS3, MG3, CK3 #### [address] #### VD25H #### [facility] [address] [place] [address] Platelet mean volume Entitic volume (Bld) 8.1 fL Normal 7.4-10.4 [facility] Comment on above: Performed By: #### H EMDF, PT, BMP3M, PHOS3, MG3, CK3 #### [place] [address] [place] #### VD25H #### [facility] [address] [place] [address] Platelets #/vol (Bld) 194 10*3/uL Normal 140-440 [facility] Comment on above: Performed By: #### H EMDF, PT, BMP3M, PHOS3, MG3, CK3 #### [address] #### VD25H #### [facility] [address] [place] [address] RBC #/vol (Bld) 4.26 10*6/uL Low 4.40-5.90 [facility] Comment on above: Performed By: #### H EMDF, PT, BMP3M, PHOS3, MG3, CK3 #### [address] #### VD25H #### [facility] [address] [place] [address] WBC #/vol (Bld) 13.7 10*3/uL High 3.6-10.7 [facility] Comment on above: Performed By: #### H EMDF, PT, BMP3M, PHOS3, MG3, CK3 #### [address] #### VD25H #### [facility] [address] [place] [address] Arterial Blood Gaseson 07-12 CO2 molar conc 26.4 mmol/L Normal 23.0-27.0 [facility] Comment on above: Performed By: #### H EMDF, PT, BMP3M, PHOS3, MG3, CK3 #### [address] #### VD25H #### [facility] [address] [place] [address] HCO3 molar conc (Bld) 25.2 mmol/L High 21.0-25.0 [facility] Comment on above: Performed By: #### H EMDF, PT, BMP3M, PHOS3, MG3, CK3 #### [address] #### VD25H #### [facility] [address] [place] [address] Hemoglobin mass conc (Bld) 13.9 g/dL Normal ScreenOnly [facility] Comment on above: Performed By: #### H EMDF, PT, BMP3M, PHOS3, MG3, CK3 #### [address] #### VD25H #### [facility] [address] [place] [address] Oxygen ppres (Bld) 83.9 mm[Hg] Normal 80.0-100.0 [facility] Comment on above: Performed By: #### H EMDF, PT, BMP3M, PHOS3, MG3, CK3 #### [facility] [address] [place] #### VD25H #### [facility] [address] [place] [address] Oxygen saturation in Blood 96.3 % Normal 95.0-100.0 [facility] Comment on above: Performed By: #### H EMDF, PT, BMP3M, PHOS3, MG3, CK3 #### [place] [address] [place] #### VD25H #### [facility] [address] [place] [address] pCO2 38.2 mm[Hg] Normal 35.0-45.0 [facility] Comment on above: Performed By: #### H EMDF, PT, BMP3M, PHOS3, MG3, CK3 #### [place] [address] [place] #### VD25H #### [facility] [address] [place] [address] pH (Bld) 7.437 Normal 7.350-7.450 [facility] Comment on above: Performed By: #### H EMDF, PT, BMP3M, PHOS3, MG3, CK3 #### [place] [address] [place] #### VD25H #### [facility] [address] [place] [address] Std Base Excess 1.1 mmol/L Normal -3.0-3.0 [facility] Comment on above: Performed By: #### H EMDF, PT, BMP3M, PHOS3, MG3, CK3 #### [place] [address] [place] #### VD25H #### [facility] [address] [place] [address] FIO2 50% Normal [facility] Comment on above: Performed By: #### H EMDF, PT, BMP3M, PHOS3, MG3, CK3 #### [place] [address] [place] #### VD25H #### [facility] [address] [place] [address] CO2 molar conc 27.2 mmol/L High 23.0-27.0 [facility] Comment on above: Performed By: #### H EMDF, PT, BMP3M, PHOS3, MG3, CK3 #### [place] [address] [place] #### VD25H #### [facility] [address] [place] [address] HCO3 molar conc (Bld) 26.1 mmol/L High 21.0-25.0 [facility] Comment on above: Performed By: #### H EMDF, PT, BMP3M, PHOS3, MG3, CK3 #### [place] [address] [place] #### VD25H #### [facility] [address] [place] [address] Hemoglobin mass conc (Bld) 14.7 g/dL Normal ScreenOnly [facility] Comment on above: Performed By: #### H EMDF, PT, BMP3M, PHOS3, MG3, CK3 #### [place] [address] [place] #### VD25H #### [facility] [address] [place] [address] Oxygen ppres (Bld) 125.7 mm[Hg] High 80.0-100.0 [facility] Comment on above: Performed By: #### H EMDF, PT, BMP3M, PHOS3, MG3, CK3 #### [place] [address] [place] #### VD25H #### [facility] [address] [place] [address] Oxygen saturation in Blood 98.6 % Normal 95.0-100.0 [facility] Comment on above: Performed By: #### H EMDF, PT, BMP3M, PHOS3, MG3, CK3 #### [place] [address] [facility] [place] #### VD25H #### [facility] [address] [place] [address] pCO2 37.5 mm[Hg] Normal 35.0-45.0 [facility] Comment on above: Performed By: #### H EMDF, PT, BMP3M, PHOS3, MG3, CK3 #### [address] [facility] #### VD25H #### [place] [address] [place] [address] pH (Bld) 7.460 High 7.350-7.450 [facility] Comment on above: Performed By: #### H EMDF, PT, BMP3M, PHOS3, MG3, CK3 #### [place] [address] [facility] #### VD25H #### [facility] [address] [place] [address] Std Base Excess 2.4 mmol/L Normal -3.0-3.0 [facility] Comment on above: Performed By: #### H EMDF, PT, BMP3M, PHOS3, MG3, CK3 #### [place] [address] [facility] #### VD25H #### [facility] [address] [place] [address] FIO2 62.5 Normal [facility] Comment on above: Performed By: #### H EMDF, PT, BMP3M, PHOS3, MG3, CK3 #### [place] [address] [facility] #### VD25H #### [facility] [address] [place] [address] Basic Metabolic Panelon 06-29 Anion gap molar conc 6 Normal [facility] Comment on above: Performed By: #### H EMDF, PT, BMP3M, PHOS3, MG3, CK3 #### [address] #### VD25H #### [facility] [address] [place] [address] Calcium mass conc 8.0 mg/dL Low 8.4-10.4 [facility] Comment on above: Performed By: #### H EMDF, PT, BMP3M, PHOS3, MG3, CK3 #### [address] #### VD25H #### [place] [address] [place] [address] CO2 molar conc 28 mmol/L Normal 22-30 [facility] Comment on above: Performed By: #### H EMDF, PT, BMP3M, PHOS3, MG3, CK3 #### [address] #### VD25H #### [place] [address] [place] [address] Creatinine mass conc 0.62 mg/dL Normal 0.52-1.25 [facility] Comment on above: Performed By: #### H EMDF, PT, BMP3M, PHOS3, MG3, CK3 #### [address] #### VD25H #### [place] [address] [place] [address] GFR/1.73 sq M predicted among blacks MDRD vol rate/area (S/P/Bld) mL/min/{1.73_m2} Normal >60 [facility] Comment on above: Performed By: #### H EMDF, PT, BMP3M, PHOS3, MG3, CK3 #### [address] #### VD25H #### [facility] [address] [place] [address] GFR/1.73 sq M predicted among non-blacks MDRD vol rate/area (S/P/Bld) mL/min/{1.73_m2} Normal >60 [facility] Comment on above: Result Comment: Sour ce- MDRD equation with creatinine calibration to IDMS(NKDEP) eGFR not recommended for drug dose adjustment Performed By: #### H EMDF, PT, BMP3M, PHOS3, MG3, CK3 #### [place] [address] [place] #### VD25H #### [facility] [address] [place] [address] Glucose mass conc 125 mg/dL High 70-100 [facility] Comment on above: Performed By: #### H EMDF, PT, BMP3M, PHOS3, MG3, CK3 #### [place] [address] [facility] #### VD25H #### [facility] [address] [place] [address] Urea nitrogen mass conc 12 mg/dL Normal 7-20 S [facility] Comment on above: Performed By: #### H EMDF, PT, BMP3M, PHOS3, MG3, CK3 #### [place] [address] [place], [place] #### VD25H #### [facility] [address] [place] [address] Chloride molar conc 104 mmol/L Normal 98-107 [facility] Comment on above: Performed By: #### H EMDF, PT, BMP3M, PHOS3, MG3, CK3 #### [address] #### VD25H #### [facility] [address] [place] [address] Potassium molar conc 3.6 mmol/L Normal 3.5-5.1 [facility] Comment on above: Performed By: #### H EMDF, PT, BMP3M, PHOS3, MG3, CK3 #### [facility] [address] [place] [address] #### VD25H #### [facility] [address] [place] [address] Sodium molar conc 138 mmol/L Normal 135-145 [facility] Comment on above: Performed By: #### H EMDF, PT, BMP3M, PHOS3, MG3, CK3 #### [facility] [address] [facility] [address] #### VD25H #### [facility] [address] [place] [address] CR Chest Portableon 07-13-19 CR Chest Portable Patient Name: KATHYA HOOPER Diagnostic Radiology Exam Date/Time 07/12/2018 10:18:11 EDT Exam CR Chest Portable Ordering Physician MARIA EUGENIA PEREZ Accession Number [id number] CPT4 Codes 08503 () Reason For Exam ETT Placement Report [...] Transcribed Date and Time: 07/12/2018 1:21 Normal [facility] CR Chest Portable Patient Name: KATHYA HOOPER Diagnostic Radiology Exam Date/Time 07/12/2018 06:19:03 EDT Exam CR Chest Portable Ordering Physician MD NATE, [facility] Accession Number [id number] CPT4 Codes 78105 () Reason For Exam dyspnea Report PORTABLE [...] Transcribed Date and Time: 07/12/2018 8:01 Normal [facility] Hemogram w/ [employer]od[employer] 07-12 Abs Baso Cnt 0.0 10*3/uL Normal 0.0-0.2 [facility] System Comment on above: Performed By: #### H EMDF, PT, BMP3M, PHOS3, MG3, CK3 #### [address], [place] #### [id number] #### [facility] [address] [place] [address] Abs Neutrophile Cnt 10.2 10*3/uL High 1.8-7.0 [employer] [facility] Comment on above: Performed By: #### H EMDF, PT, BMP3M, PHOS3, MG3, CK3 #### [address] #### VD25H #### [facility] [address] [place] [address] Basophils/100 WBC (Bld) 0.4 % Normal 0.0-2.0 S [facility] Comment on above: Performed By: #### H EMDF, PT, BMP3M, PHOS3, MG3, CK3 #### [address] #### VD25H #### [facility] [address] [place] [address] Eosinophils #/vol (Bld) 0.1 10*3/uL Normal 0.0-0.5 [facility] Comment on above: Performed By: #### H EMDF, PT, BMP3M, PHOS3, MG3, CK3 #### [address] #### VD25H #### [facility] [address] [place] [address] Eosinophils/100 WBC (Bld) 0.6 % Low 1.0-6.0 [facility] Comment on above: Performed By: #### H EMDF, PT, BMP3M, PHOS3, MG3, CK3 #### [address] #### VD25H #### [facility] [address] [place] [address] Erythrocyte distribution width Ratio (RBC) 13.5 % Normal 11.5-14.5 [facility] Comment on above: Performed By: #### H EMDF, PT, BMP3M, PHOS3, MG3, CK3 #### [facility] [address] [place] #### VD25H #### [facility] [address] [place] [address] Granulocytes/100 WBC (Bld) 84.7 % High 40.0-80.0 [facility] Comment on above: Performed By: #### H EMDF, PT, BMP3M, PHOS3, MG3, CK3 #### [place] [address] [place] #### VD25H #### [facility] [address] [place] [address] Hematocrit Volume Fraction (Bld) 39.7 % Low 40.0-52.0 [facility] Comment on above: Performed By: #### H EMDF, PT, BMP3M, PHOS3, MG3, CK3 #### [address] [address] [place], [place] #### VD25H #### [facility] [address] [place] [address] Hemoglobin mass conc (Bld) 13.5 g/dL Normal 13.0-18.0 [facility] Comment on above: Performed By: #### H EMDF, PT, BMP3M, PHOS3, MG3, CK3 #### [address] #### VD25H #### [facility] [address] [place] [address] Lymphocytes #/vol (Bld) 0.9 10*3/uL Low 1.0-4.3 [facility] Comment on above: Performed By: #### H EMDF, PT, BMP3M, PHOS3, MG3, CK3 #### [address] #### VD25H #### [facility] [address] [place] [address] Lymphocytes/100 WBC (Bld) 7.6 % Low 20.0-40.0 [facility] Comment on above: Performed By: #### H EMDF, PT, BMP3M, PHOS3, MG3, CK3 #### [address] [place] #### VD25H #### [facility] [address] [place] [address] MCH Entitic mass (RBC) 29.6 pg Normal 26.0-34.0 [facility] Comment on above: Performed By: #### H EMDF, PT, BMP3M, PHOS3, MG3, CK3 #### [address] [place] #### VD25H #### [facility] [address] [place] [address] MCHC mass conc (RBC) 34.1 % Normal 32.0-36.0 [facility] Comment on above: Performed By: #### H EMDF, PT, BMP3M, PHOS3, MG3, CK3 #### [address] #### VD25H #### [facility] [address] [place] [address] MCV Entitic volume (RBC) 87.0 fL Normal 80.0-98.0 [facility] Comment on above: Performed By: #### H EMDF, PT, BMP3M, PHOS3, MG3, CK3 #### [address] #### VD25H #### [facility] [address] [place] [address] Monocytes #/vol (Bld) 0.8 10*3/uL Normal 0.0-0.8 [facility] Comment on above: Performed By: #### H EMDF, PT, BMP3M, PHOS3, MG3, CK3 #### [address] #### VD25H #### [facility] [address] [place] [address] Monocytes/100 WBC (Bld) 6.7 % Normal 2.0-10.0 [facility] Comment on above: Performed By: #### H EMDF, PT, BMP3M, PHOS3, MG3, CK3 #### [facility] [address] [place] #### VD25H #### [facility] [address] [place] [address] Platelet mean volume Entitic volume (Bld) 8.4 fL Normal 7.4-10.4 [facility] Comment on above: Performed By: #### H EMDF, PT, BMP3M, PHOS3, MG3, CK3 #### [place] [address] [place] #### VD25H #### [facility] [address] [place] [address] Platelets #/vol (Bld) 185 10*3/uL Normal 140-440 [facility] Comment on above: Performed By: #### H EMDF, PT, BMP3M, PHOS3, MG3, CK3 #### [place] [address] [place] #### VD25H #### [facility] [address] [place] [address] RBC #/vol (Bld) 4.57 10*6/uL Normal 4.40-5.90 [facility] Comment on above: Performed By: #### H EMDF, PT, BMP3M, PHOS3, MG3, CK3 #### [place] [address] [place] #### VD25H #### [facility] [address] [place] [address] WBC #/vol (Bld) 12.1 10*3/uL High 3.6-10.7 [facility] Comment on above: Performed By: #### H EMDF, PT, BMP3M, PHOS3, MG3, CK3 #### [address] #### VD25H #### [facility] [address] [place] [address] VL Venous Duplex US Lower Ex t Bilateralon 07-12-2018 VL Venous Duplex US Lower Ext Bilateral Patient Name: KATHYA HOOPER Ultrasound Exam Date/Time 07/12/2018 17:20:46 EDT Exam VL Venous Duplex US Lower Ext Bilateral Ordering Physician MD AVELAR ADAM Accession Number [id number] CPT4 Codes 92454 () Reason For Exam leg swelling Report [facility] --- Lower Extremity Venous Duplex Report Patient Name: Kathya Hooper : 1955 Study Date: 07/12/2018 W (63yrs) Age: 63 Account: [id number] Gender: M Loc: T209 BP: Ordering: Joshua Avelar Technologist: Ordering Physician: Joshua Avelar Manager Of Network: Elizabeth Sanford RVT Interpreting Physician: Krysta Arora --- Location: [facility] --- INDICATIONS: Edema. bilateral calves. [...] performed. The images were obtained using a Flexiant E9 vascular ultrasound machine. --- VENOUS FLOW [...] ---------+-------+--- --+ Electronically signed by: Krysta Arora [id number] Final Dictated: 07/13/2018 8:45 am Dictating Physician: KRYSTA ARORA Signed Date and Time: 07/13/2018 8:45 am Signed by: KRYSTA ARORA [facility] Calcium mass conc 7.8 mg/dL Low 8.4-10.4 [employer] [facility] Comment on above: Performed By: #### H EMDF, PT, BMP3M, PHOS3, MG3, CK3 #### [employer] [address] [place] [address] #### VD25H #### [employer] [address] [place] [address] Anion gap molar conc 4 Normal [facility] Comment on above: Performed By: #### H EMDF, PT, BMP3M, PHOS3, MG3, CK3 #### [place] [address] [place] [address] #### VD25H #### [facility] [address] [place] [address] CO2 molar conc 26 mmol/L Normal 22-30 [facility] Comment on above: Performed By: #### H EMDF, PT, BMP3M, PHOS3, MG3, CK3 #### [place] [address] [place] #### VD25H #### [facility] [address] [place] [address] Glucose mass conc 118 mg/dL High 70-100 [facility] Comment on above: Performed By: #### H EMDF, PT, BMP3M, PHOS3, MG3, CK3 #### [address] #### VD25H #### [place] [address] [place] [address] Urea nitrogen mass conc 19 mg/dL Normal 7-20 S [facility] Comment on above: Performed By: #### H EMDF, PT, BMP3M, PHOS3, MG3, CK3 #### [address] #### VD25H #### [place] [address] [place] [address] Creatinine mass conc 0.74 mg/dL Normal 0.52-1.25 [facility] Comment on above: Performed By: #### H EMDF, PT, BMP3M, PHOS3, MG3, CK3 #### [address] #### VD25H #### [place] [address] [place] [address] GFR/1.73 sq M predicted among blacks MDRD vol rate/area (S/P/Bld) mL/min/{1.73_m2} Normal >60 [facility] Comment on above: Performed By: #### H EMDF, PT, BMP3M, PHOS3, MG3, CK3 #### [place] [address] [place] #### VD25H #### [facility] [address] [place] [address] GFR/1.73 sq M predicted among non-blacks MDRD vol rate/area (S/P/Bld) mL/min/{1.73_m2} Normal >60 [facility] Comment on above: Result Comment: Sour ce- MDRD equation with creatinine calibration to IDMS(NKDEP) eGFR not recommended for drug dose adjustment Performed By: #### H EMDF, PT, BMP3M, PHOS3, MG3, CK3 #### [place] [place] #### VD25H #### [facility] [address] [place] [address] Chloride molar conc 112 mmol/L High 98-107 [facility] Comment on above: Performed By: #### H EMDF, PT, BMP3M, PHOS3, MG3, CK3 #### [place] [address] [place] #### VD25H #### [facility] [address] [place] [address] Potassium molar conc 3.8 mmol/L Normal 3.5-5.1 [facility] Comment on above: Performed By: #### H EMDF, PT, BMP3M, PHOS3, MG3, CK3 #### [facility] [address] [facility] [place] #### VD25H #### [facility] [address] [place] [address] Sodium molar conc 141 mmol/L Normal 135-145 [facility] Comment on above: Performed By: #### H EMDF, PT, BMP3M, PHOS3, MG3, CK3 #### [facility] [address] [facility] [place] #### VD25H #### [facility] [address] [place] [address] CR Chest 1 View Frontalon CR Chest 1 View Frontal Patient Name: KATHYA FELDER Diagnostic Radiology Exam Date/Time 07/11/2018 06:36:48 EDT Exam CR Chest 1 View Frontal Ordering Physician MD AVELAR ADAM Accession Number [id number] CPT4 Codes 24158 () Reason For Exam dyspnea Report EXAM [...] Transcribed Date and Time: 07/11/2018 7:05 Normal [facility] [employer] Hemogram w/ Autodiffon 07-11 Abs Baso Cnt 0.0 10*3/uL Normal 0.0-0.2 [facility] Comment on above: Performed By: #### H EMDF, PT, BMP3M, PHOS3, MG3, CK3 #### [facility] [address] [place] [address] #### VD25H #### [facility] [address] [place] [address] Abs Neutrophile Cnt 8.8 10*3/uL High 1.8-7.0 [facility] Comment on above: Performed By: #### H EMDF, PT, BMP3M, PHOS3, MG3, CK3 #### [facility] [address] [place] #### VD25H #### [facility] [address] [place] [address] Basophils/100 WBC (Bld) 0.4 % Normal 0.0-2.0 S [facility] Comment on above: Performed By: #### H EMDF, PT, BMP3M, PHOS3, MG3, CK3 #### [place] [address] [place], [place] #### VD25H #### [facility] [address] [place] [address] Eosinophils #/vol (Bld) 0.0 10*3/uL Normal 0.0-0.5 [facility] Comment on above: Performed By: #### H EMDF, PT, BMP3M, PHOS3, MG3, CK3 #### [address] #### VD25H #### [facility] [address] [place] [address] Eosinophils/100 WBC (Bld) 0.4 % Low 1.0-6.0 [facility] Comment on above: Performed By: #### H EMDF, PT, BMP3M, PHOS3, MG3, CK3 #### [place] [address] [place] #### VD25H #### [facility] [address] [place] [address] Erythrocyte distribution width Ratio (RBC) 13.7 % Normal 11.5-14.5 [facility] Comment on above: Performed By: #### H EMDF, PT, BMP3M, PHOS3, MG3, CK3 #### [address] #### VD25H #### [facility] [address] [place] [address] Granulocytes/100 WBC (Bld) 80.6 % High 40.0-80.0 [facility] Comment on above: Performed By: #### H EMDF, PT, BMP3M, PHOS3, MG3, CK3 #### [facility] [address] [place] #### VD25H #### [facility] [address] [place] [address] Hematocrit Volume Fraction (Bld) 32.8 % Low 40.0-52.0 [facility] Comment on above: Performed By: #### H EMDF, PT, BMP3M, PHOS3, MG3, CK3 #### [place] [address] [place] #### VD25H #### [facility] [address] [place] [address] Hemoglobin mass conc (Bld) 11.4 g/dL Low 13.0-18.0 [facility] Comment on above: Performed By: #### H EMDF, PT, BMP3M, PHOS3, MG3, CK3 #### [facility] [address] [place] #### VD25H #### [facility] [address] [place] [address] Lymphocytes #/vol (Bld) 1.3 10*3/uL Normal 1.0-4.3 [facility] Comment on above: Performed By: #### H EMDF, PT, BMP3M, PHOS3, MG3, CK3 #### [facility] [address] [place] #### VD25H #### [facility] [address] [place] [address] Lymphocytes/100 WBC (Bld) 11.5 % Low 20.0-40.0 [facility] Comment on above: Performed By: #### H EMDF, PT, BMP3M, PHOS3, MG3, CK3 #### [facility] [address] [place] #### VD25H #### [facility] [address] [place] [address] MCH Entitic mass (RBC) 30.2 pg Normal 26.0-34.0 [facility] Comment on above: Performed By: #### H EMDF, PT, BMP3M, PHOS3, MG3, CK3 #### [place] [address] [place] #### VD25H #### [facility] [address] [place] [address] MCHC mass conc (RBC) 34.7 % Normal 32.0-36.0 [facility] Comment on above: Performed By: #### H EMDF, PT, BMP3M, PHOS3, MG3, CK3 #### [address] #### VD25H #### [place] [address] [place] [address] MCV Entitic volume (RBC) 86.9 fL Normal 80.0-98.0 [facility] Comment on above: Performed By: #### H EMDF, PT, BMP3M, PHOS3, MG3, CK3 #### [address] #### VD25H #### [place] [address] [place] [address] Monocytes #/vol (Bld) 0.8 10*3/uL Normal 0.0-0.8 [facility] Comment on above: Performed By: #### H EMDF, PT, BMP3M, PHOS3, MG3, CK3 #### [address] #### VD25H #### [place] [address] [place] [address] Monocytes/100 WBC (Bld) 7.1 % Normal 2.0-10.0 [facility] Comment on above: Performed By: #### H EMDF, PT, BMP3M, PHOS3, MG3, CK3 #### [address] #### VD25H #### [facility] [address] [place] [address] Platelet mean volume Entitic volume (Bld) 8.8 fL Normal 7.4-10.4 [facility] Comment on above: Performed By: #### H EMDF, PT, BMP3M, PHOS3, MG3, CK3 #### [address] #### VD25H #### [facility] [address] [place] [address] Platelets #/vol (Bld) 158 10*3/uL Normal 140-440 [facility] Comment on above: Performed By: #### H EMDF, PT, BMP3M, PHOS3, MG3, CK3 #### [address] #### VD25H #### [place] [address] [place] [address] RBC #/vol (Bld) 3.78 10*6/uL Low 4.40-5.90 [facility] Comment on above: Performed By: #### H EMDF, PT, BMP3M, PHOS3, MG3, CK3 #### [address] #### VD25H #### [place] [address] [place] [address] WBC #/vol (Bld) 10.9 10*3/uL High 3.6-10.7 [facility] Comment on above: Performed By: #### H EMDF, PT, BMP3M, PHOS3, MG3, CK3 #### [address] #### VD25H #### [facility] [address] [place] [address] Magnesiumon 07-11-2018 Magnesium mass conc 2.3 mg/dL Normal 1.6-2.3 [facility] Comment on above: Performed By: #### H EMDF, PT, BMP3M, PHOS3, MG3, CK3 #### [place] [address] [place] #### VD25H #### [facility] [address] [place] [address] Phosphoruson 07-11-2018 Phosphate mass conc 2.8 mg/dL Normal 2.5-4.5 [facility] Comment on above: Performed By: #### H EMDF, PT, BMP3M, PHOS3, MG3, CK3 #### [place] [address] [place] #### VD25H #### [facility] [address] [place] [address] Basic Metabolic Panelon 06-29 Calcium mass conc 8.9 mg/dL Normal 8.4-10.4 [facility] Comment on above: Performed By: #### H EMDF, PT, BMP3M, PHOS3, MG3, CK3 #### [place] [address] [place] #### VD25H #### [facility] [address] [place] [address] Glucose mass conc 133 mg/dL High 70-100 [facility] Comment on above: Performed By: #### H EMDF, PT, BMP3M, PHOS3, MG3, CK3 #### [address] #### VD25H #### [facility] [address] [place] [address] Anion gap molar conc 4 Normal [facility] Comment on above: Performed By: #### H EMDF, PT, BMP3M, PHOS3, MG3, CK3 #### [address] [place] #### VD25H #### [facility] [address] [place] [address] CO2 molar conc 27 mmol/L Normal 22-30 [facility] Comment on above: Performed By: #### H EMDF, PT, BMP3M, PHOS3, MG3, CK3 #### [address] [place] #### VD25H #### [facility] [address] [place] [address] Creatinine mass conc 0.69 mg/dL Normal 0.52-1.25 [facility] Comment on above: Performed By: #### H EMDF, PT, BMP3M, PHOS3, MG3, CK3 #### [place] [address] [place] #### VD25H #### [facility] [address] [place] [address] GFR/1.73 sq M predicted among blacks MDRD vol rate/area (S/P/Bld) mL/min/{1.73_m2} Normal >60 [facility] Comment on above: Performed By: #### H EMDF, PT, BMP3M, PHOS3, MG3, CK3 #### [address] #### VD25H #### [facility] [address] [place] [address] GFR/1.73 sq M predicted among non-blacks MDRD vol rate/area (S/P/Bld) mL/min/{1.73_m2} Normal >60 [facility] Comment on above: Result Comment: Sour ce- MDRD equation with creatinine calibration to IDMS(NKDEP) eGFR not recommended for drug dose adjustment Performed By: #### H EMDF, PT, BMP3M, PHOS3, MG3, CK3 #### [address] #### VD25H #### [facility] [address] [place] [address] Urea nitrogen mass conc 16 mg/dL Normal 7-20 S [facility] Comment on above: Performed By: #### H EMDF, PT, BMP3M, PHOS3, MG3, CK3 #### [address] #### VD25H #### [facility] [address] [place] [address] Potassium molar conc 4.1 mmol/L Normal 3.5-5.1 [facility] Comment on above: Performed By: #### H EMDF, PT, BMP3M, PHOS3, MG3, CK3 #### [facility] [address] [place] #### VD25H #### [facility] [address] [place] [address] Sodium molar conc 142 mmol/L Normal 135-145 [facility] Comment on above: Performed By: #### H EMDF, PT, BMP3M, PHOS3, MG3, CK3 #### [place] [address] [place] #### VD25H #### [facility] [address] [place] [address] Chloride molar conc 110 mmol/L High 98-107 [facility] Comment on above: Performed By: #### H EMDF, PT, BMP3M, PHOS3, MG3, CK3 #### [place] [address] [facility] [place] #### VD25H #### [facility] [address] [place] [address] [facility] CK enzyme act/vol 1291 U/L High 30-170 [facility] Comment on above: Performed By: #### H EMDF, PT, BMP3M, PHOS3, MG3, CK3 #### [place] [address] [facility] [place] #### VD25H #### [facility] [address] [place] [address] CK enzyme act/vol 1382 U/L High 30-170 [facility] Comment on above: Performed By: #### H EMDF, PT, BMP3M, PHOS3, MG3, CK3 #### [place] [address] [place] #### VD25H #### [facility] [address] [place] [address] CR Chest 1 View Frontalon CR Chest 1 View Frontal Patient Name: KATHYA FELDER Diagnostic Radiology Exam Date/Time 07/10/2018 06:38:06 EDT Exam CR Chest 1 View Frontal Ordering Physician MD NATE, NICOLE HOLLEY Accession Number [id number] CPT4 Codes 34260 () Reason For Exam dyspnea Report EXAMINATION: [...] Transcribed Date and Time: 07/10/2018 8:57 Normal [facility] Hemogram w/ Autodiffon 07-10 Abs Baso Cnt 0.0 10*3/uL Normal 0.0-0.2 [facility] Comment on above: Performed By: #### H EMDF, PT, BMP3M, PHOS3, MG3, CK3 #### [facility] [employer] [address] [place] [address] #### VD25H #### [facility] [address] [facility] [place] [address] Abs Neutrophile Cnt 12.2 10*3/uL High 1.8-7.0 [facility] Comment on above: Performed By: #### H EMDF, PT, BMP3M, PHOS3, MG3, CK3 #### [facility] [address] [place] #### VD25H #### [facility] [address] [place] [address] Basophils/100 WBC (Bld) 0.3 % Normal 0.0-2.0 S [facility] Comment on above: Performed By: #### H EMDF, PT, BMP3M, PHOS3, MG3, CK3 #### [address] #### VD25H #### [facility] [address] [place] [address] Eosinophils #/vol (Bld) 0.0 10*3/uL Normal 0.0-0.5 [facility] Comment on above: Performed By: #### H EMDF, PT, BMP3M, PHOS3, MG3, CK3 #### [address] #### VD25H #### [facility] [address] [place] [address] Eosinophils/100 WBC (Bld) 0.0 % Low 1.0-6.0 [facility] Comment on above: Performed By: #### H EMDF, PT, BMP3M, PHOS3, MG3, CK3 #### [address] #### VD25H #### [facility] [address] [place] [address] Erythrocyte distribution width Ratio (RBC) 13.9 % Normal 11.5-14.5 [facility] Comment on above: Performed By: #### H EMDF, PT, BMP3M, PHOS3, MG3, CK3 #### [address] #### VD25H #### [facility] [address] [place] [address] Granulocytes/100 WBC (Bld) 89.5 % High 40.0-80.0 [facility] Comment on above: Performed By: #### H EMDF, PT, BMP3M, PHOS3, MG3, CK3 #### [place] [address] [place] #### VD25H #### [facility] [address] [place] [address] Hematocrit Volume Fraction (Bld) 36.0 % Low 40.0-52.0 [facility] Comment on above: Performed By: #### H EMDF, PT, BMP3M, PHOS3, MG3, CK3 #### [address] #### VD25H #### [facility] [address] [place] [address] Hemoglobin mass conc (Bld) 12.3 g/dL Low 13.0-18.0 [facility] Comment on above: Performed By: #### H EMDF, PT, BMP3M, PHOS3, MG3, CK3 #### [address] #### VD25H #### [facility] [address] [place] [address] Lymphocytes #/vol (Bld) 0.6 10*3/uL Low 1.0-4.3 [facility] Comment on above: Performed By: #### H EMDF, PT, BMP3M, PHOS3, MG3, CK3 #### [address] [place] #### VD25H #### [facility] [address] [place] [address] Lymphocytes/100 WBC (Bld) 4.3 % Low 20.0-40.0 [facility] Comment on above: Performed By: #### H EMDF, PT, BMP3M, PHOS3, MG3, CK3 #### [address] #### VD25H #### [facility] [address] [place] [address] MCH Entitic mass (RBC) 29.8 pg Normal 26.0-34.0 [facility] Comment on above: Performed By: #### H EMDF, PT, BMP3M, PHOS3, MG3, CK3 #### [address] #### VD25H #### [facility] [address] [place] [address] MCHC mass conc (RBC) 34.2 % Normal 32.0-36.0 [facility] Comment on above: Performed By: #### H EMDF, PT, BMP3M, PHOS3, MG3, CK3 #### [address] #### VD25H #### [place] [address] [place] [address] MCV Entitic volume (RBC) 87.1 fL Normal 80.0-98.0 [facility] Comment on above: Performed By: #### H EMDF, PT, BMP3M, PHOS3, MG3, CK3 #### [address] #### VD25H #### [place] [address] [place] [address] Monocytes #/vol (Bld) 0.8 10*3/uL Normal 0.0-0.8 [facility] Comment on above: Performed By: #### H EMDF, PT, BMP3M, PHOS3, MG3, CK3 #### [address] #### VD25H #### [place] [address] [place] [address] Monocytes/100 WBC (Bld) 5.9 % Normal 2.0-10.0 S [facility] Comment on above: Performed By: #### H EMDF, PT, BMP3M, PHOS3, MG3, CK3 #### [address] [place] #### VD25H #### [facility] [address] [place] [address] Platelet mean volume Entitic volume (Bld) 8.4 fL Normal 7.4-10.4 [facility] Comment on above: Performed By: #### H EMDF, PT, BMP3M, PHOS3, MG3, CK3 #### [address] [place], [place] #### VD25H #### [facility] [address] [place] [address] Platelets #/vol (Bld) 155 10*3/uL Normal 140-440 [facility] Comment on above: Performed By: #### H EMDF, PT, BMP3M, PHOS3, MG3, CK3 #### [address] #### VD25H #### [facility] [address] [place] [address] RBC #/vol (Bld) 4.13 10*6/uL Low 4.40-5.90 [facility] Comment on above: Performed By: #### H EMDF, PT, BMP3M, PHOS3, MG3, CK3 #### [address] #### VD25H #### [facility] [address] [place] [address] WBC #/vol (Bld) 13.6 10*3/uL High 3.6-10.7 [facility] Comment on above: Performed By: #### H EMDF, PT, BMP3M, PHOS3, MG3, CK3 #### [address] #### VD25H #### [facility] [address] [place] [address] Magnesiumon 07-10-2018 Magnesium mass conc 2.3 mg/dL Normal 1.6-2.3 [facility] Comment on above: Performed By: #### H EMDF, PT, BMP3M, PHOS3, MG3, CK3 #### [address] #### VD25H #### [facility] [address] [place] [address] Phosphoruson 07-10-2018 Phosphate mass conc 2.7 mg/dL Normal 2.5-4.5 [facility] Comment on above: Performed By: #### H EMDF, PT, BMP3M, PHOS3, MG3, CK3 #### [address] #### VD25H #### [facility] [address] [place] [address] Add on test from HISon 07-09 Add on test from HIS Accepted Normal [facility] Comment on above: Result Comment: Spec imen available & acceptable for analysis. Performed By: #### A DDON #### [address] Arterial Blood Gaseson 07-09 CO2 molar conc 24.5 mmol/L Normal 23.0-27.0 [facility] Comment on above: Performed By: #### H EMDF, PT, BMP3M, PHOS3, MG3, CK3 #### [address] #### VD25H #### [facility] [address] [place] [address] HCO3 molar conc (Bld) 23.2 mmol/L Normal 21.0-25.0 [facility] Comment on above: Performed By: #### H EMDF, PT, BMP3M, PHOS3, MG3, CK3 #### [address] #### VD25H #### [facility] [address] [place] [address] Hemoglobin mass conc (Bld) 15.7 g/dL Normal [facility]Only [facility] Comment on above: Performed By: #### H EMDF, PT, BMP3M, PHOS3, MG3, CK3 #### [address] [place] #### VD25H #### [facility] [address] [place] [address] Oxygen ppres (Bld) 397.4 mm[Hg] High 80.0-100.0 [facility] Comment on above: Performed By: #### H EMDF, PT, BMP3M, PHOS3, MG3, CK3 #### [place] [place], [place] #### VD25H #### [facility] [address] [place] [address] Oxygen saturation in Blood 99.2 % Normal 95.0-100.0 [facility] Comment on above: Performed By: #### H EMDF, PT, BMP3M, PHOS3, MG3, CK3 #### [address] #### VD25H #### [facility] [address] [place] [address] pCO2 42.3 mm[Hg] Normal 35.0-45.0 [facility] Comment on above: Performed By: #### H EMDF, PT, BMP3M, PHOS3, MG3, CK3 #### [address] #### VD25H #### [facility] [address] [facility] [place] [address] pH (Bld) 7.357 Normal 7.350-7.450 [facility] Comment on above: Performed By: #### H EMDF, PT, BMP3M, PHOS3, MG3, CK3 #### [address] #### VD25H #### [facility] [address] [place] [address] Std Base Excess -2.3 mmol/L Normal -3.0-3.0 [facility] Comment on above: Performed By: #### H EMDF, PT, BMP3M, PHOS3, MG3, CK3 #### [address] [place] #### VD25H #### [facility] [address] [place] [address] FIO2 100% Normal [facility] Comment on above: Performed By: #### H EMDF, PT, BMP3M, PHOS3, MG3, CK3 #### [address] [place] #### VD25H #### [facility] [address] [place] [address] Basic Metabolic Panelon 06-29 Calcium mass conc 8.6 mg/dL Normal 8.4-10.4 [facility] Comment on above: Performed By: #### H EMDF, PT, BMP3M, PHOS3, MG3, CK3 #### [address] #### VD25H #### [facility] [address] [place] [address] Glucose mass conc 150 mg/dL High 70-100 [facility] Comment on above: Performed By: #### H EMDF, PT, BMP3M, PHOS3, MG3, CK3 #### [address] #### VD25H #### [facility] [address] [place] [address] Anion gap molar conc 7 Normal [facility] Comment on above: Performed By: #### H EMDF, PT, BMP3M, PHOS3, MG3, CK3 #### [address] [address] [place], [place] #### VD25H #### [facility] [address] [place] [address] CO2 molar conc 26 mmol/L Normal 22-30 [facility] Comment on above: Performed By: #### H EMDF, PT, BMP3M, PHOS3, MG3, CK3 #### [address] [address] [place], [place] #### VD25H #### [facility] [address] [place] [address] Creatinine mass conc 0.80 mg/dL Normal 0.52-1.25 [facility] Comment on above: Performed By: #### H EMDF, PT, BMP3M, PHOS3, MG3, CK3 #### [address] [place] #### VD25H #### [facility] [address] [place] [address] GFR/1.73 sq M predicted among blacks MDRD vol rate/area (S/P/Bld) mL/min/{1.73_m2} Normal >60 [facility] Comment on above: Performed By: #### H EMDF, PT, BMP3M, PHOS3, MG3, CK3 #### [address] [place] #### VD25H #### [place] [address] [place] [address] GFR/1.73 sq M predicted among non-blacks MDRD vol rate/area (S/P/Bld) mL/min/{1.73_m2} Normal >60 [facility] Comment on above: Result Comment: Sour ce- MDRD equation with creatinine calibration to IDMS(NKDEP) eGFR not recommended for drug dose adjustment Performed By: #### H EMDF, PT, BMP3M, PHOS3, MG3, CK3 #### [address] [place] #### VD25H #### [facility] [address] [place] [address] Urea nitrogen mass conc 16 mg/dL Normal 7-20 S [facility] Comment on above: Performed By: #### H EMDF, PT, BMP3M, PHOS3, MG3, CK3 #### [address] [place] #### VD25H #### [facility] [address] [place] [address] Chloride molar conc 110 mmol/L High 98-107 [facility] Comment on above: Performed By: #### H EMDF, PT, BMP3M, PHOS3, MG3, CK3 #### [facility] [address] [place] #### VD25H #### [facility] [address] [place] [address] Potassium molar conc 4.7 mmol/L Normal 3.5-5.1 [facility] Comment on above: Performed By: #### H EMDF, PT, BMP3M, PHOS3, MG3, CK3 #### [place] [place] [place] #### VD25H #### [facility] [address] [place] [address] Sodium molar conc 143 mmol/L Normal 135-145 [facility] Comment on above: Performed By: #### H EMDF, PT, BMP3M, PHOS3, MG3, CK3 #### [place] [place] [place] #### VD25H #### [facility] [address] [place] [address] CKon 07-09-2018 CK enzyme act/vol 1451 U/L High 30-170 [facility] Comment on above: Performed By: #### H EMDF, PT, BMP3M, PHOS3, MG3, CK3 #### [facility] [address] [place] #### VD25H #### [facility] [address] [place] [address] CK enzyme act/vol 3832 U/L High 30-170 [facility] Comment on above: Performed By: #### H EMDF, PT, BMP3M, PHOS3, MG3, CK3 #### [address] [place] #### VD25H #### [facility] [address] [place] [address] CR Chest 1 View Frontalon CR Chest 1 View Frontal Patient Name: KATHYA FELDER Diagnostic Radiology Exam Date/Time 07/09/2018 06:21:56 EDT Exam CR Chest 1 View Frontal Ordering Physician MD NATE, NICOLE HOLLEY Accession Number [id number] CPT4 Codes 00602 () Reason For Exam dyspnea Report CHEST [...] and Time: 07/09/2018 6:39 Normal [facility] CR Chest Portableon 07-10-19 19 CR Chest Portable Patient Name: KATHYA HOOPER Diagnostic Radiology Exam Date/Time 07/09/2018 11:34:09 EDT Exam CR Chest Portable Ordering Physician INDRA JACOBSON Accession Number [id number] CPT4 Codes 66204 () Reason For Exam Central line placement [...] JOHN Transcribed Date and Time: 07/09/2018 1:01 [facility] CR Chest Portable Patient Name: KATHYA HOOPER Diagnostic Radiology Exam Date/Time 07/09/2018 03:05:20 EDT Exam CR Chest Portable Ordering Physician MD NATE, [facility] Accession Number [id number] CPT4 Codes 46185 () Reason For Exam intubation Report CHEST PORTABLE: Indication: Inpatient; intubation Views: Portable frontal Comparison: 07/08/2018 at 22:16 Time: 07/09/2018 at 2:46 FINDINGS: Interval intubation with endotracheal tube approximately 4.2 cm above the level of the alma. An enteric tube has been placed with distal tip below the hemidiaphragm but excluded from [id number]. Cardiac monitoring wires and leads are present. [...] R Transcribed Date and Time: 07/09/2018 3:10 [facility] CR Chest Portable Patient Name: KATHYA HOOPER Diagnostic Radiology Exam Date/Time 07/08/2018 22:31:57 EDT Exam CR Chest Portable Ordering Physician MD NATE, [facility] Accession Number [id number] CPT4 Codes 05567 () Reason For Exam cough Report CHEST [...] and Time: 07/08/2018 11:23 Normal [facility] CTA Head/Neck w/ + w/o contr birgit 07-09-2018 CTA Head/Neck w/ + w/o contrast Patient Name: KATHYA HOOPER CT Exam Date/Time 07/09/2018 04:42:10 EDT Exam CTA Head/Neck w/ + w/o contrast Ordering Physician MD RICKI, JORDAN Accession Number [id number] CPT4 Codes Q9967 (CT ISOVUE 370MG/[id number]), 07339 (), 92491 () Reason For Exam CERVICAL SPINE FRACTURE Report CLINICAL INFORMATION: C-spine fracture after trauma. Vascular injury suspected. CTA HEAD: After 75 ml Isovue IV contrast, 0.3 mm axial cuts were obtained through the brain. Coronal and sagittal reconstructions are reviewed. In addition, 3D images of the jamul of [place] were constructed by ct and reviewed simultaneously on the separate Vitrea [...] and Time: 07/09/2018 9:50 Normal [facility] Hemogram w/ Autodiffon 07-09 Abs Baso Cnt 0.1 10*3/uL Normal 0.0-0.2 [facility] Comment on above: Performed By: #### H EMDF, PT, BMP3M, PHOS3, MG3, CK3 #### [facility] [address] [place] [address] #### VD25H #### [facility] [address] [place] [address] Abs Neutrophile Cnt 13.3 10*3/uL High 1.8-7.0 [facility] Comment on above: Performed By: #### H EMDF, PT, BMP3M, PHOS3, MG3, CK3 #### [address] #### VD25H #### [facility] [address] [place] [address] Basophils/100 WBC (Bld) 0.3 % Normal 0.0-2.0 S [facility] Comment on above: Performed By: #### H EMDF, PT, BMP3M, PHOS3, MG3, CK3 #### [address] #### VD25H #### [facility] [address] [place] [address] Eosinophils #/vol (Bld) 0.0 10*3/uL Normal 0.0-0.5 [facility] Comment on above: Performed By: #### H EMDF, PT, BMP3M, PHOS3, MG3, CK3 #### [address] #### VD25H #### [facility] [address] [place] [address] Eosinophils/100 WBC (Bld) 0.0 % Low 1.0-6.0 [facility] Comment on above: Performed By: #### H EMDF, PT, BMP3M, PHOS3, MG3, CK3 #### [address] #### VD25H #### [facility] [address] [place] [address] Erythrocyte distribution width Ratio (RBC) 13.7 % Normal 11.5-14.5 [facility] Comment on above: Performed By: #### H EMDF, PT, BMP3M, PHOS3, MG3, CK3 #### [address] #### VD25H #### [facility] [address] [place] [address] Granulocytes/100 WBC (Bld) 86.5 % High 40.0-80.0 [facility] Comment on above: Performed By: #### H EMDF, PT, BMP3M, PHOS3, MG3, CK3 #### [facility] [address] [place] #### VD25H #### [facility] [address] [place] [address] Hematocrit Volume Fraction (Bld) 45.1 % Normal 40.0-52.0 [facility] Comment on above: Performed By: #### H EMDF, PT, BMP3M, PHOS3, MG3, CK3 #### [place] [place] #### VD25H #### [facility] [address] [place] [address] Hemoglobin mass conc (Bld) 15.6 g/dL Normal 13.0-18.0 [facility] Comment on above: Performed By: #### H EMDF, PT, BMP3M, PHOS3, MG3, CK3 #### [place] [place] #### VD25H #### [facility] [address] [place] [address] Lymphocytes #/vol (Bld) 0.8 10*3/uL Low 1.0-4.3 [facility] Comment on above: Performed By: #### H EMDF, PT, BMP3M, PHOS3, MG3, CK3 #### [place] [place] #### VD25H #### [facility] [address] [place] [address] Lymphocytes/100 WBC (Bld) 5.5 % Low 20.0-40.0 [facility] Comment on above: Performed By: #### H EMDF, PT, BMP3M, PHOS3, MG3, CK3 #### [address] [address] [place], [place] #### VD25H #### [facility] [address] [place] [address] MCH Entitic mass (RBC) 29.9 pg Normal 26.0-34.0 [facility] Comment on above: Performed By: #### H EMDF, PT, BMP3M, PHOS3, MG3, CK3 #### [facility] [address] [place] #### VD25H #### [facility] [address] [place] [address] MCHC mass conc (RBC) 34.5 % Normal 32.0-36.0 [facility] Comment on above: Performed By: #### H EMDF, PT, BMP3M, PHOS3, MG3, CK3 #### [place] [place] #### VD25H #### [facility] [address] [place] [address] MCV Entitic volume (RBC) 86.7 fL Normal 80.0-98.0 [facility] Comment on above: Performed By: #### H EMDF, PT, BMP3M, PHOS3, MG3, CK3 #### [address] [place] #### VD25H #### [facility] [address] [place] [address] Monocytes #/vol (Bld) 1.2 10*3/uL High 0.0-0.8 [facility] Comment on above: Performed By: #### H EMDF, PT, BMP3M, PHOS3, MG3, CK3 #### [address] [place] #### VD25H #### [facility] [address] [place] [address] Monocytes/100 WBC (Bld) 7.7 % Normal 2.0-10.0 S [facility] Comment on above: Performed By: #### H EMDF, PT, BMP3M, PHOS3, MG3, CK3 #### [place] [place] #### VD25H #### [place] [address] [place] [address] Platelet mean volume Entitic volume (Bld) 8.1 fL Normal 7.4-10.4 [facility] Comment on above: Performed By: #### H EMDF, PT, BMP3M, PHOS3, MG3, CK3 #### [address] #### VD25H #### [place] [address] [place] [address] Platelets #/vol (Bld) 197 10*3/uL Normal 140-440 [facility] Comment on above: Performed By: #### H EMDF, PT, BMP3M, PHOS3, MG3, CK3 #### [address] #### VD25H #### [place] [address] [place] [address] RBC #/vol (Bld) 5.20 10*6/uL Normal 4.40-5.90 [facility] Comment on above: Performed By: #### H EMDF, PT, BMP3M, PHOS3, MG3, CK3 #### [address] #### VD25H #### [address] [place] [address] WBC #/vol (Bld) 15.4 10*3/uL High 3.6-10.7 [facility] Comment on above: Performed By: #### H EMDF, PT, BMP3M, PHOS3, MG3, CK3 #### [address] #### VD25H #### [address] [place] [address] MRI Spine Cervical w/o Contr birgit 07-09-2018 MRI Spine Cervical w/o Contrast Patient Name: KATHYA HOOPER MRI Exam Date/Time 07/09/2018 00:44:49 EDT Exam MRI Spine Cervical w/o Contrast Ordering Physician MD CHEYENNE, BRITTANY BERRY Accession Number [id number] CPT4 Codes 11672 () Reason For Exam CERVICAL SPINE FRACTURE [...] and Time: 07/09/2018 7:45 Normal [facility] Magnesiumon 07-09-2018 Magnesium mass conc 2.2 mg/dL Normal 1.6-2.3 [facility] Comment on above: Performed By: #### H EMDF, PT, BMP3M, PHOS3, MG3, CK3 #### [facility] [address] [place], [place] #### VD25H #### [facility] [address] [place] [address] Phosphoruson 07-09-2018 Phosphate mass conc 4.0 mg/dL Normal 2.5-4.5 [facility] Comment on above: Performed By: #### H EMDF, PT, BMP3M, PHOS3, MG3, CK3 #### [address] #### VD25H #### [facility] [address] [place] [address] Prothrombin Timeon 9 INR Coag RelTime (PPP) 1.0 Normal 0.9-1.1 [facility] Comment on above: Result Comment: Yefri mmended [...] BMP3M, PHOS3, MG3, CK3 #### [facility] [address] [place], [place] #### VD25H #### [facility] [address] [place] [address] Prothrombin time (PT) Coag time (PPP) 10.3 s Normal 9.0-12.0 [facility] Comment on above: Result Comment: . Performed By: #### H EMDF, PT, BMP3M, PHOS3, MG3, CK3 #### [address] [place] [address] #### VD25H #### [facility] [address] [place] [address] TS GELon 07-09-2018 TS GEL ABO Group: O Rh, Gel: POS Antibody Screen Gel: NEG Normal [facility] Comment on above: Performed By: #### T SGL #### [facility] [address] [place] [address] Vit D 25-OH, Totalon 019 Vit D 25-OH, Total 23 ng/mL Low 30-100 [facility] Comment on above: Result Comment: Ther apy is based on measurement of Total 25-OHD with the following classification levels: Less than 20 ng/mL: Indicative of Vit D deficiency 20-30 ng/mL: Suggests Vit D insufficiency Optimal: Greater than or equal to 30 ng/mL Test performed by [employer] Immunoassay, measuring Total Vitamin D, not individual fractions. Performed By: #### H EMDF, PT, BMP3M, PHOS3, MG3, CK3 #### [facility] [address] [place] [address] #### VD25H #### [facility] [address] [place] [address] Hematologyon 01-03-2003 Lymphocytes (Bld) [#/Vol] RECTUM, BIOPSY - BENIGN COLONIC MUCOSA WITH INTRAMUCOSAL LYMPHOID AGGREGATES. [facility] Otheron 01-03-2003 CONVERTED ELECTRONIC SIGNATURE BARBARA CASTILLO M.D., PATHOLOGIST (Electronic signature on file) Final Signed Out: 01/03/2003 15:09 [facility] CONVERTED ORDERING PROVIDER Ordering Provider: BENI VERA [facility] Culture, urine Bacteria identified Cx Nom (U) Culture exhibits no growth. [facility] Work Phone: Vital Signs Date Time Vital Sign Value Performing Clinician Facility 10-02-2023 13:56-0400 Diastolic blood pressure 62 mm[Hg] Fei Farooq MD Work Phone: [facility] 10-02-2023 13:56-0400 Heart rate 104 /min Fei Farooq MD Work Phone: [facility] 10-02-2023 13:56-0400 SaO2% (BldA) [Mass fraction] 94 % Fei Farooq MD Work Phone: [employer] 10-02-2023 13:56-0400 Systolic blood pressure 124 mm[Hg] Fei Farooq MD Work Phone: [facility] 10-02-2023 11:13-0400 Respiratory rate 16 /min Fei Farooq MD Work Phone: [employer] 10-02-2023 09:47-0400 Body mass index (BMI) [Ratio] 26.19 kg/m2 Fei Farooq MD Work Phone: [employer] 10-02-2023 09:47-0400 Body temperature 98.01 [degF] Fei Farooq MD Work Phone: [employer] 10-02-2023 09:47-0400 Body weight 92.53 kg Fei Farooq MD Work Phone: [employer] 05-20-2022 18:30-0500 Body mass index (BMI) [Ratio] 26.32 kg/m2 Abelardo Gombash DO Work Phone: [employer] 05-20-2022 18:30-0500 Body temperature 97.3 [degF] Abelardo Gombash DO Work Phone: [employer] 05-20-2022 18:30-0500 Body weight 92.99 kg Abelardo Gombash DO Work Phone: [employer] 05-20-2022 18:30-0500 Diastolic blood pressure 108 mm[Hg] Abelardo Gombash DO Work Phone: [employer] 05-20-2022 18:30-0500 Heart rate 100 /min Abelardo Gombash DO Work Phone: [employer] 05-20-2022 18:30-0500 Respiratory rate 14 /min Abelardo Gombash DO Work Phone: [employer] 05-20-2022 18:30-0500 SaO2% (BldA) [Mass fraction] 98 % Abelardo Gombash DO Work Phone: [facility] [employer] 05-20-2022 18:30-0500 Systolic blood pressure 125 mm[Hg] Abelardo Gombash DO Work Phone: [facility] [employer] 05-15-2021 09:40-0500 Body height 188 cm Timothy Micheal DO Work Phone: [employer] 05-15-2021 09:40-0500 Body mass index (BMI) [Ratio] 23.75 kg/m2 Timothy Micheal DO Work Phone: [employer] 05-15-2021 09:40-0500 Body weight 83.92 kg Timothy Micheal DO Work Phone: [employer] 05-15-2021 09:38-0500 Body temperature 97.59 [degF] Timothy Micheal DO Work Phone: [employer] 05-15-2021 09:38-0500 Diastolic blood pressure 76 mm[Hg] Timothy Micheal DO Work Phone: [employer] 05-15-2021 09:38-0500 Heart rate 102 /min Timothy Micheal DO Work Phone: [employer] 05-15-2021 09:38-0500 Respiratory rate 16 /min Timothy Micheal DO Work Phone: [employer] 05-15-2021 09:38-0500 SaO2% (BldA) [Mass fraction] 99 % Timothy Micheal DO Work Phone: [facility] 05-15-2021 09:38-0500 Systolic blood pressure 115 mm[Hg] Timothy Micheal DO Work Phone: [employer] 03-24-2021 10:20-0500 Respiratory rate 18 /min Brady Nesheim DO Work Phone: [facility] 03-24-2021 10:20-0500 SaO2% (BldA) [Mass fraction] 94 % Brady Nesheim DO Work Phone: [facility] 03-24-2021 08:44-0500 Body temperature 97.7 [degF] Brady Nesheim DO Work Phone: [facility] 03-24-2021 08:44-0500 Diastolic blood pressure 55 mm[Hg] Brady Nesheim DO Work Phone: [facility] 03-24-2021 08:44-0500 Heart rate 85 /min Brady Nesheim DO Work Phone: [facility] 03-24-2021 08:44-0500 Systolic blood pressure 85 mm[Hg] Brady Nesheim DO Work Phone: [facility] 03-20-2021 13:41-0500 Body height 188 cm Brady Nesheim DO Work Phone: [facility] 03-20-2021 11:16-0500 Body mass index (BMI) [Ratio] 23.86 kg/m2 Brady Nesheim DO Work Phone: [facility] 03-20-2021 11:16-0500 Body weight 84.32 kg Brady Nesheim DO Work Phone: [facility] Comment on above: earlene Ingram RN (bed scal e measurement) on 03/20/2021 03-18-2021 15:02-0500 Body temperature 99.5 [degF] Boo Castro MD Work Phone: [facility] 03-18-2021 15:02-0500 Diastolic blood pressure 82 mm[Hg] Boo Castro MD Work Phone: [facility] 03-18-2021 15:02-0500 Heart rate 111 /min Boo Castro MD Work Phone: [facility] 03-18-2021 15:02-0500 Respiratory rate 18 /min Boo Castro MD Work Phone: [facility] 03-18-2021 15:02-0500 SaO2% (BldA) [Mass fraction] 93 % Boo Castro MD Work Phone: [facility] 03-18-2021 15:02-0500 Systolic blood pressure 111 mm[Hg] Boo Castro MD Work Phone: [facility] 10-30-2020 17:10-0400 Diastolic blood pressure 82 mm[Hg] Bethany Clemons MD Work Phone: [facility] Work Phone: 10-30-2020 17:10-0400 Heart rate 110 /min Bethany Clemons MD Work Phone: [facility] Work Phone: 10-30-2020 17:10-0400 Respiratory rate 16 /min Bethany Clemons MD Work Phone: [facility] Work Phone: 10-30-2020 17:10-0400 SaO2% (BldA) [Mass fraction] 99 % Bethany Clemons MD Work Phone: [facility] Work Phone: 10-30-2020 17:10-0400 Systolic blood pressure 125 mm[Hg] Bethany Clemons MD Work Phone: [facility] Work Phone: 10-30-2020 13:02-0400 Body mass index (BMI) [Ratio] 24.65 kg/m2 Bethany Clemons MD Work Phone: [facility] Work Phone: 10-30-2020 13:02-0400 Body temperature 96.91 [degF] Bethany Clemons MD Work Phone: [facility] Work Phone: 10-30-2020 13:02-0400 Body weight 87.09 kg Bethany Clemons MD Work Phone: [facility] Work Phone: 09-22-2020 05:01-0400 Diastolic blood pressure 76 mm[Hg] Elizabeth Moura MD Work Phone: [facility] Work Phone: 09-22-2020 05:01-0400 Systolic blood pressure 114 mm[Hg] Elizabeth Moura MD Work Phone: [facility] Work Phone: 09-22-2020 00:26-0400 Body temperature 97.81 [...] Phone: 06-26-2020 17:58-0500 Height 188 cm Abelardo Rios [facility] Work Phone: 05-16-2019 23:00-0500 Diastolic blood pressure 68 mm[Hg] Elizabeth Moura MD Work Phone: [facility] Work Phone: 05-16-2019 23:00-0500 Heart rate 95 /min Elizabeth Moura MD Work Phone: [facility] Work Phone: 05-16-2019 23:00-0500 Respiratory rate 18 /min Elizabeth Moura MD Work Phone: [facility] Work Phone: 05-16-2019 23:00-0500 SaO2% (BldA) [Mass fraction] 100 % Elizabeth Moura MD Work Phone: [facility] Work Phone: 05-16-2019 23:00-0500 Systolic blood pressure 115 mm[Hg] Elizabteh Moura MD Work Phone: [facility] Work Phone: 05-16-2019 19:57-0500 Body temperature 98.49 [degF] Elizabeth Moura MD Work Phone: [facility] Work Phone: NEGATED: Highlighted [id number] 14:34-0500 BMI (Body Mass Index) 22.16 kg/m2 Ana Stevenson CUSTOMER SUPPORT MANAGER [facility] Work Phone: NEGATED: Highlighted [id number] 14:34-0500 Body weight 78.02 kg Ana Stevenson CUSTOMER SUPPORT MANAGER [facility] Work Phone: NEGATED: Highlighted [id number] 14:34-0500 Body weight 78 kg Ana Stevenson CUSTOMER SUPPORT MANAGER [facility] Work Phone: NEGATED: Highlighted [id number] 14:34-0500 BP Diastolic 66 mm[Hg] Ana Stevenson LPN [facility] Work Phone: NEGATED: Highlighted [id number] 14:34-0500 BP Systolic 102 mm[Hg] Ana Stevenson LPN [facility] Work Phone: NEGATED: Highlighted [id number] 14:34-0500 Height 187.96 cm Ana Stevenson CUSTOMER SUPPORT MANAGER [facility] Work Phone: NEGATED: Highlighted [id number] 14:34-0500 Height 188 cm Ana Stevenson CUSTOMER SUPPORT MANAGER [facility] Work Phone: NEGATED: Highlighted [id number] 14:34-0500 Pulse (Heart Rate) 104 /min Ana Stevenson L[facility] Work Phone: Encounters Encounter Date Encounter Type Care Provider Facility Start: 01-06-2025 ambulatory Renard Burgos OLS Faci lity:[facility] Start: 12-31-2024 ambulatory Renard Burgos OLS Faci lity:[facility] Start: 12-23-2024 ambulatory Renard Amezquitaros OLS Faci lity:[facility] Start: 12-16-2024 ambulatory Renard Burgos OLS Faci lity:[facility] Start: 12-09-2024 ambulatory Renard Amezquitaros OLS Faci lity:[facility] Start: 12-02-2024 ambulatory Renard Burgos OLS Faci lity:[facility] Start: 11-25-2024 ambulatory Renard Burgos OLS Faci lity:[facility] Start: 11-25-2024 Registered Referred Renard Burgos - [place] [facility] Start: 11-18-2024 ambulatory Renard Burgos OLS Faci lity:[facility] Start: 11-18-2024 Registered Referred Renard Burgos - [place] [facility] Start: 11-11-2024 ambulatory Renard Burgos OLS Faci lity:[facility] Start: 11-11-2024 Registered Referred Renard Burgos - [place] [facility] Start: 11-04-2024 ambulatory Renard Burgos OLS Faci lity:[facility] Start: 11-04-2024 Registered Referred Renard Burgos - [place] [facility] Start: 10-28-2024 ambulatory Renard GARLAND Faci lity:[facility] Start: 10-28-2024 Registered Referred Renard Amezquitaros - [place] [facility] Start: 10-21-2024 End: 10-21-2024 ambulatory Renard GARLAND -[place] [facility] Start: 10-21-2024 End: 10-21-2024 Departed Referred Renard Amezquitaros -[place] [facility] Start: 10-21-2024 Registered Referred Renard Amezquitaros - [place] [facility] Start: 10-21-2024 End: 10-21-2024 ambulatory Renard GARLAND Facility:[facility] Start: 10-14-2024 ambulatory Renard GARLAND Faci lity:[facility] Start: 10-14-2024 Registered Referred Renard Burgos - [place] [facility] Start: 10-07-2024 ambulatory Renard GARLAND Faci lity:[facility] Start: 10-07-2024 Registered Referred Renard Amezquitaros - [place] [facility] Start: 09-30-2024 ambulatory Renard GARLAND Faci lity:[facility] Start: 09-30-2024 Registered Referred Renard Amezquitaros - [place] [facility] Start: 09-24-2024 End: 09-24-2024 ambulatory Renard GARLAND -[place] [facility] Start: 09-24-2024 End: 09-24-2024 Departed Referred Renard Burgos -[place] [facility] Start: 09-24-2024 Registered Referred Renard Amezquitaros - [place] [facility] Start: 09-24-2024 End: 09-24-2024 ambulatory Renard GARLAND Facility:[facility] Start: 09-16-2024 End: 09-16-2024 ambulatory Renard GARLAND -[place] [facility] Start: 09-16-2024 End: 09-16-2024 Departed Referred Renard Burgos -[place] [facility] Start: 09-16-2024 Registered Referred Renard Burgos - [place] [facility] Start: 09-16-2024 End: 09-16-2024 ambulatory Renard GARLAND Facility:[facility] Start: 09-11-2024 End: 09-11-2024 ambulatory Renard Shellierustam GARLAND [facility] Work Phone: Start: 09-11-2024 End: 09-11-2024 Departed Referred Renard Burgos -[place] [facility] Start: 09-11-2024 Registered Referred Renard Burgos - [place] [facility] Start: 09-11-2024 End: 09-11-2024 ambulatory Renard GARLAND Facility:[facility] Start: 09-09-2024 End: 09-09-2024 ambulatory Renard GARLAND [facility] Work Phone: Start: 09-09-2024 End: 09-09-2024 Departed Referred Renard Burgos -[place] [facility] Start: 09-09-2024 Registered Referred Renard Burgos - [place] [facility] Start: 09-09-2024 End: 09-09-2024 ambulatory Renard GARLAND Facility:[facility] Start: 09-02-2024 End: 09-02-2024 ambulatory Renard GARLAND [facility] Work Phone: Start: 09-02-2024 End: 09-02-2024 Departed Referred Renard Burgos -[place] [facility] Start: 09-02-2024 Registered Referred Renard Burgos - [place] [facility] Start: 09-02-2024 End: 09-02-2024 ambulatory Renard GARLAND Facility:[facility] Start: 08-26-2024 End: 08-26-2024 ambulatory Renard GARLAND [facility] Work Phone: Start: 08-26-2024 End: 08-26-2024 Departed Referred Renard Burgos -[place] [facility] Start: 08-26-2024 Registered Referred Renard Burgos - [place] [facility] Start: 08-26-2024 End: 08-26-2024 ambulatory Renard GARLAND Facility:[facility] Start: 08-23-2024 End: 08-23-2024 Departed Referred Renard Burgos -[place] [facility] Start: 08-23-2024 Registered Referred Renard Burgos - [place] [facility] Start: 08-23-2024 End: 08-23-2024 ambulatory Renard GARLAND Facility:[facility] Start: 08-19-2024 End: 08-19-2024 ambulatory Renard GARLAND [facility] Work Phone: Start: 08-19-2024 End: 08-19-2024 Departed Referred Renard Burgos -[place] [facility] Start: 08-19-2024 Registered Referred Renard Burgos - [place] [facility] Start: 08-19-2024 End: 08-19-2024 ambulatory Renard GARLAND Facility:[facility] Start: 08-12-2024 End: 08-12-2024 ambulatory Renard GARLAND [facility] Work Phone: Start: 08-12-2024 End: 08-12-2024 Departed Referred Renard Burgos -[place] [facility] Start: 08-12-2024 Registered Referred Renard Burgos - [place] [facility] Start: 08-12-2024 End: 08-12-2024 ambulatory Renard GARLAND Facility:[facility] Start: 08-05-2024 End: 08-05-2024 Departed Referred Renard Burgos -[place] [facility] Start: 08-05-2024 Registered Referred Renard Burgos - [place] [facility] Start: 08-05-2024 End: 08-05-2024 ambulatory Renard GARLAND Facility:[facility] Start: 07-29-2024 End: 07-29-2024 ambulatory Renard GARLAND [facility] Work Phone: Start: 07-29-2024 End: 07-29-2024 Departed Referred Renard Burgos -[place] [facility] Start: 07-29-2024 Registered Referred Renard Burgos - [place] [facility] Start: 07-29-2024 End: 07-29-2024 ambulatory Renard GARLAND Facility:[facility] Start: 07-22-2024 End: 07-22-2024 ambulatory Renard GARLAND [facility] Work Phone: Start: 07-22-2024 End: 07-22-2024 Departed Referred Renard Burgos -[place] [facility] Start: 07-22-2024 Registered Referred Renard Burgos - [place] [facility] Start: 07-22-2024 End: 07-22-2024 ambulatory Renard GARLAND Facility:[facility] Start: 07-16-2024 End: 07-16-2024 ambulatory Renard GARLAND [facility] Work Phone: Start: 07-16-2024 End: 07-16-2024 Departed Referred Renard Burgos -[place] [facility] Start: 07-16-2024 Registered Referred Renard Burgos - [place] [facility] Start: 07-15-2024 End: 07-16-2024 ambulatory Renard GARLAND [facility] Work Phone: Start: 07-15-2024 End: 07-15-2024 Departed Referred Renard Burgos -[place] [facility] Start: 07-15-2024 Registered Referred Renard Burgos - [place] [facility] Start: 07-15-2024 End: 07-15-2024 ambulatory Renard GARLAND Facility:[facility] Start: 07-08-2024 End: 07-08-2024 ambulatory Renard GARLAND [facility] Work Phone: Start: 07-08-2024 End: 07-08-2024 Departed Referred Renard Burgos -[place] [facility] [facility] Start: 07-08-2024 Registered Referred Renard Burgos - [place] [facility] Start: 07-08-2024 End: 07-08-2024 ambulatory Renard GARLAND Facility:[facility] Start: 07-01-2024 End: 07-01-2024 ambulatory Renard GARLAND [facility] Work Phone: Start: 07-01-2024 End: 07-01-2024 Departed Referred Renard Burgos -[place] [facility] Start: 07-01-2024 Registered Referred Renard Burgos - [place] [facility] Start: 07-01-2024 End: 07-01-2024 ambulatory Renard GARLAND Facility:[facility] Start: 06-27-2024 End: 06-27-2024 ambulatory Renard GARLAND [facility] Work Phone: Start: 06-27-2024 End: 06-27-2024 Departed Referred Renard Burgos -[place] [facility] [facility] Start: 06-27-2024 Registered Referred Renard Burgos - [place] [facility] Start: 06-27-2024 End: 06-27-2024 ambulatory Renard GARLAND Facility:[facility] Start: 06-24-2024 End: 06-24-2024 Subsequent hospital visit by physician Rashaad Pink NP Work Phone: [facility] CT Imaging Comment on above: Chronic cough Start: 06-24-2024 End: 06-24-2024 ambulatory RASHAAD SMITH [facility] Start: 06-24-2024 End: 06-24-2024 Departed Referred Renard Burgos -[place] [facility] Start: 06-24-2024 Registered Referred Renard Burgos - [place] [facility] Start: 06-24-2024 End: 06-24-2024 ambulatory Renard GARLAND Facility:[facility] Start: 06-17-2024 End: 06-17-2024 ambulatory Renard GARLAND [facility] Work Phone: Start: 06-17-2024 End: 06-17-2024 Departed Referred Renard Burgos -[place] [facility] Start: 06-17-2024 Registered Referred Renard Burgos - [place] [facility] Start: 06-17-2024 End: 06-17-2024 ambulatory Renard GARLAND Facility:[facility] Start: 06-12-2024 End: 09-11-2024 Transcribe Orders Rashaad Smith [employer]SE WORKER - 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 Work Phone: [facility] Central Scheduling Comment on above: Chronic cough (Prima ry Dx) Start: 06-10-2024 End: 06-10-2024 ambulatory Renard GARLAND [facility] Work Phone: Start: 06-10-2024 End: 06-10-2024 Departed Referred Renard Burgos -[place] [facility] Start: 06-10-2024 Registered Referred Renard Burgos - [place] [facility] Start: 06-10-2024 End: 06-10-2024 ambulatory Renard GARLAND Facility:[facility] Start: 06-07-2024 End: 06-07-2024 ambulatory Renard GARLAND [facility] Work Phone: Start: 06-07-2024 End: 06-07-2024 Departed Referred Renard Burgos -[place] [facility] Start: 06-07-2024 Registered Referred Renard Burgos - [place] [facility] Start: 06-07-2024 End: 06-07-2024 ambulatory Renard GARLAND Facility:[facility] Start: 06-03-2024 End: 06-03-2024 ambulatory Renard GARLAND [facility] Work Phone: Start: 06-03-2024 End: 06-03-2024 Departed Referred Renard Burgos -[place] [facility] Start: 06-03-2024 End: 06-03-2024 ambulatory Renard GARLAND Facility:[facility] Start: 05-27-2024 End: 05-27-2024 Departed Referred Renard Burgos -[place] [facility] Start: 05-27-2024 End: 05-27-2024 ambulatory Renard GARLAND Facility:[facility] Start: 05-20-2024 End: 05-20-2024 Departed Referred Renard Burgos -[place] [facility] Start: 05-20-2024 End: 05-20-2024 ambulatory Renard GARLAND Facility:[facility] Start: 05-13-2024 End: 05-13-2024 Departed Referred Renard Burgos -[place] [facility] Start: 05-13-2024 End: 05-13-2024 ambulatory Renard GARLAND Facility:[facility] Start: 05-06-2024 End: 05-06-2024 Departed Referred Renard Burgos -[place] [facility] Start: 05-06-2024 End: 05-06-2024 ambulatory Renard GARLAND Facility:[facility] Start: 05-03-2024 End: 05-03-2024 Telephone encounter Renard Burgos Work Phone: [facility] Clinical Communication Comment on above: Other Start: 04-29-2024 End: 04-29-2024 Departed Referred Renard Burgos -[place] [facility] Start: 04-29-2024 End: 04-29-2024 ambulatory Renard GARLAND Facility:[facility] Start: 04-22-2024 End: 04-22-2024 Departed Referred Renard Burgos -[place] [facility] Start: 04-22-2024 End: 04-22-2024 ambulatory Renard GARLAND Facility:[facility] Start: 04-15-2024 End: 04-15-2024 Departed Referred Renard Burgos -[place] [facility] Start: 04-15-2024 End: 04-15-2024 ambulatory Renard GARLAND Facility:[facility] Start: 04-08-2024 ambulatory Renard GARLAND Faci lity:[facility] Start: 04-08-2024 Registered Referred Renard Burgos - [place] [facility] Start: 04-01-2024 ambulatory Renard GARLAND Faci lity:[facility] Start: 04-01-2024 Registered Referred Renard Burgos - [place] [facility] Start: 03-25-2024 End: 03-25-2024 Departed Referred Renard Burgos -[place] [facility] Start: 03-25-2024 End: 03-25-2024 ambulatory Renard GARLAND Facility:[facility] Start: 03-18-2024 End: 03-18-2024 Departed [facility] [place] [facility] Start: 03-18-2024 End: 03-18-2024 ambulatory Renard GARLAND Facility:[facility] Start: 03-11-2024 End: 03-11-2024 Departed Referred Renard Hensleyrustam -Julissa Kilpatrick [facility] Start: 03-11-2024 End: 03-11-2024 ambulatory Renard Burgos OLS Facility:[facility] Start: 03-04-2024 End: 03-04-2024 ambulatory Renard Burgos OLS Facility:[facility] Start: 02-26-2024 End: 02-26-2024 ambulatory Renard Hensleysaros OLS Facility:[facility] Start: 02-23-2024 End: 02-23-2024 ambulatory Renard Burgos OLS Facility:[facility] Start: 02-19-2024 End: 02-19-2024 ambulatory Renard Burgos OLS Facility:[facility] Start: 02-12-2024 End: 02-12-2024 ambulatory Renard Burgos OLS Facility:[facility] Start: 02-05-2024 End: 02-05-2024 ambulatory Renard Burgos OLS Facility:[facility] Start: 01-29-2024 End: 01-29-2024 ambulatory Renard Burgos OLS Facility:[facility] Start: 01-22-2024 End: 01-22-2024 ambulatory Renard Hensleysaros OLS Facility:[facility] Start: 01-15-2024 ambulatory Renard GARLAND Faci lity:[facility] Start: 01-08-2024 End: 01-08-2024 ambulatory Renard Burgos OLS Facility:[facility] Start: 11-22-2023 End: 11-22-2023 ambulatory RENARD BURGOS [facility] Start: 11-22-2023 End: 11-22-2023 Subsequent hospital visit by physician Renard Burgos Work Phone: [facility] X-ray Imaging Comment on above: Dysphagia, oropharyn geal phase; Feeding difficulties Start: 10-16-2023 End: 01-15-2024 Transcribe Orders Renard Burgos Work Phone: [facility] Central Scheduling Comment on above: Dysphagia, oropharyn geal phase (Primary Dx); Feeding difficulties Start: 10-02-2023 End: 10-02-2023 Emergency department patient visit Fei Farooq MD Work Phone: [facility] ED Comment on above: Dyspnea, unspecified type (Primary Dx) Start: 08-07-2023 Registered Referred [facility] [facility] Start: 07-31-2023 End: 07-31-2023 ambulatory [facility] Work Phone: Start: 07-31-2023 End: 07-31-2023 Departed Referred [facility] [employer] Start: 07-31-2023 Registered Referred [facility] Start: 07-24-2023 End: 07-24-2023 ambulatory [facility] Work Phone: Start: 07-24-2023 End: 07-24-2023 Departed Referred [facility] [employer] Start: 07-17-2023 End: 07-17-2023 ambulatory [facility] Work Phone: Start: 07-17-2023 End: 07-17-2023 Departed Referred [facility] [employer] Start: 07-17-2023 [facility] [facility] Start: 07-10-2023 End: 07-10-2023 ambulatory [facility] Work Phone: Start: 07-10-2023 End: 07-10-2023 [facility] Start: 07-10-2023 [facility] Start: 07-03-2023 End: 07-03-2023 ambulatory [facility] Work Phone: Start: 07-03-2023 End: 07-03-2023 [facility] Start: 07-03-2023 [facility] Start: 06-26-2023 [facility] Start: 06-19-2023 End: 06-19-2023 ambulatory [facility] Work Phone: Start: 06-19-2023 End: 06-19-[address] [facility] Start: 06-19-2023 [facility] Start: 06-12-2023 End: 06-12-2023 ambulatory [facility] Work Phone: Start: 06-12-2023 End: 06-12-[address] [facility] Start: 06-12-2023 [facility] Start: 06-05-2023 End: 06-05-2023 ambulatory [facility] Work Phone: Start: 06-05-2023 End: 06-05-[address] [facility] Start: 06-05-2023 [facility] Start: 05-29-2023 End: 05-29-[address] [facility] Start: 05-29-2023 [facility] Start: 05-22-2023 End: 05-22-2023 ambulatory [facility] Work Phone: Start: 05-22-2023 End: 05-22-[address] [facility] Start: 05-22-2023 [facility] Start: 05-15-2023 End: 05-15-[address] [facility] Start: 05-15-2023 [facility] Start: 05-08-2023 End: 05-08-2023 ambulatory [facility] Work Phone: Start: 05-08-2023 End: 05-08-[address] [facility] Start: 04-17-2023 End: 04-17-2023 ambulatory [facility] Work Phone: Start: 04-17-2023 End: 04-17-[address] [facility] Start: 04-17-2023 [facility] Start: 04-14-2023 End: 04-14-2023 ambulatory [facility] Work Phone: Start: 04-14-2023 End: 04-14-[address] [facility] Start: 04-14-2023 [facility] Start: 04-10-2023 End: 04-10-[address] [facility] Start: 04-10-2023 [facility] Start: 04-03-2023 End: 04-03-2023 ambulatory [facility] Work Phone: Start: 04-03-2023 End: 04-03-[address] [facility] Start: 04-03-2023 [facility] Start: 03-27-2023 End: 03-27-2023 ambulatory [facility] Work Phone: Start: 03-27-2023 End: 03-27-[address] [facility] Start: 03-27-2023 Registered Referred [facility] Start: 03-20-2023 End: 03-20-2023 ambulatory [facility] Work Phone: Start: 03-20-2023 End: 03-20-[address] [facility] Start: 03-20-2023 [facility] Start: 03-16-2023 End: 03-16-2023 ambulatory [facility] Work Phone: Start: 03-16-2023 End: 03-16-[address] [facility] Start: 03-16-2023 [facility] Start: 03-13-2023 End: 03-13-2023 ambulatory [facility] Work Phone: Start: 03-13-2023 End: 03-13-[address] [facility] Start: 03-06-2023 End: 03-06-2023 ambulatory [facility] Work Phone: Start: 03-06-2023 End: 03-06-[address] [facility] Start: 03-06-2023 [facility] Start: 02-27-2023 End: 02-27-2023 ambulatory [facility] Work Phone: Start: 02-27-2023 End: 02-27-[address] [facility] Start: 02-20-2023 End: 02-20-2023 ambulatory [facility] Work Phone: Start: 02-20-2023 End: 02-20-2023 [facility]ed [facility] Start: 02-20-2023 [facility] Start: 02-13-2023 End: 02-13-2023 ambulatory [facility] Work Phone: Start: 02-13-2023 End: 02-13-[address] [facility] Start: 02-13-2023 [facility] Start: 02-06-2023 End: 02-06-2023 ambulatory [facility] Work Phone: Start: 02-06-2023 End: 02-06-2023 Departed Referred [facility] Start: 02-06-2023 Registered Referred [facility] Start: 01-30-2023 End: 01-30-2023 ambulatory [facility] Work Phone: Start: 01-30-2023 End: 01-30-[address] [facility] Start: 01-30-2023 Registered Referred [facility] [facility] Start: 01-23-2023 End: 01-23-[address] [facility] Start: 01-23-2023 Registered Referred [facility] Start: 01-16-2023 End: 01-16-2023 ambulatory [facility] Work Phone: Start: 01-16-2023 End: 01-16-[address] [facility] Start: 01-16-2023 [facility] Start: 01-09-2023 End: 01-09-[address] [facility] Start: 01-09-2023 Registered Referred [facility] Start: 01-03-2023 End: 01-03-2023 ambulatory [facility] Work Phone: Start: 01-03-2023 End: 01-03-[address] [facility] Start: 01-03-2023 [facility] Start: 12-26-2022 End: 12-26-2022 ambulatory [facility] Work Phone: Start: 12-26-2022 End: 12-26-2022 Departed Referred [facility] [facility] Start: 12-26-2022 [facility] [facility] Start: 12-19-2022 End: 12-19-2022 ambulatory [facility] Work Phone: Start: 12-19-2022 End: 12-19-[address] [facility] Start: 12-19-2022 [facility] [facility] Start: 12-12-2022 End: 12-12-[address] [facility] Start: 12-12-2022 [facility] Start: 12-05-2022 End: 12-05-2022 ambulatory [facility] Work Phone: Start: 12-05-2022 End: 12-05-[address] [facility] Start: 12-05-2022 [facility] Start: 11-28-2022 End: 11-28-2022 ambulatory [facility] Work Phone: Start: 11-28-2022 End: 11-28-[address] [facility] Start: 11-28-2022 [facility] Start: 11-21-2022 End: 11-21-2022 ambulatory [facility] Work Phone: Start: 11-21-2022 End: 11-21-2022 [facility]ed [facility] Start: 11-21-2022 Registered [facility] [facility] Start: 11-14-2022 End: 11-14-2022 ambulatory [facility] Work Phone: Start: 11-14-2022 End: 11-14-2022 Departed [facility] Start: 11-14-2022 Registered Referred [facility] [facility] Start: 11-07-2022 [facility] Start: 10-31-2022 End: 10-31-2022 ambulatory [facility] Work Phone: Start: 10-31-2022 End: 10-31-[address] [facility] Start: 10-31-2022 [facility] Start: 10-24-2022 End: 10-24-2022 ambulatory [facility] Work Phone: Start: 10-24-2022 End: 10-24-[address] [facility] Start: 10-24-2022 [facility] Start: 10-17-2022 End: 10-17-[address] [facility] Start: 10-17-2022 [facility] Start: 10-10-2022 End: 10-10-2022 ambulatory [facility] Work Phone: Start: 10-10-2022 End: 10-10-[address] [facility] Start: 10-10-2022 [facility] Start: 10-03-2022 End: 10-03-2022 ambulatory [facility] Work Phone: Start: 10-03-2022 End: 10-03-[address] [facility] Start: 09-19-2022 End: 09-19-[address] [facility] Start: 09-19-2022 [facility] Start: 09-12-2022 End: 09-12-2022 ambulatory [facility] Work Phone: Start: 09-12-2022 End: 09-12-[address] [facility] Start: 09-05-2022 End: 09-05-2022 Departed Referred [facility] [facility] Start: 09-05-2022 Registered Referred [facility] [facility] Start: 08-29-2022 End: 08-29-[address] [facility] Start: 08-29-2022 Registered Referred [facility] [facility] Start: 08-22-2022 End: 08-22-2022 ambulatory [facility] Work Phone: Start: 08-22-2022 End: 08-22-[address] [facility] Start: 08-22-2022 [facility] Start: 08-15-2022 End: 08-15-2022 ambulatory [facility] Work Phone: Start: 08-15-2022 End: 08-15-[address] [facility] Start: 08-15-2022 [facility] Start: 08-08-2022 End: 08-08-[address] [facility] Start: 08-08-2022 [facility] Start: 08-01-2022 End: 08-01-2022 ambulatory [facility] Work Phone: Start: 08-01-2022 End: 08-01-[address] [facility] Start: 08-01-2022 [facility] Start: 07-25-2022 End: 07-25-2022 ambulatory [facility] Work Phone: Start: 07-25-2022 End: 07-25-2022 Departed Referred [facility] [facility] [employer] [facility] Start: 07-25-2022 Registered Referred [facility] [facility] [employer] [facility] Start: 07-19-2022 End: 07-19-2022 Departed Referred [facility] [facility] Start: 07-19-2022 Registered Referred [facility] [facility] Start: 07-18-2022 End: 07-18-2022 ambulatory [facility] Work Phone: Start: 07-18-2022 End: 07-18-2022 Departed Referred [facility] [facility] Start: 07-18-2022 [facility] Start: 07-11-2022 End: 07-11-2022 ambulatory [facility] Work Phone: Start: 07-11-2022 End: 07-11-[address] [facility] Start: 07-11-2022 Registered Referred [facility] [facility] Start: 07-04-2022 End: 07-04-2022 Departed Referred [facility] [facility] Start: 07-04-2022 Registered Referred [facility] [facility] Start: 06-27-2022 End: 06-27-2022 ambulatory [facility] Work Phone: Start: 06-27-2022 End: 06-27-2022 Departed Referred [facility] [facility] Start: 06-27-2022 Registered Referred [facility] [facility] Start: 06-20-2022 End: 06-20-2022 ambulatory [facility] Work Phone: Start: 06-20-2022 End: 06-20-[address] [facility] Start: 06-20-2022 [facility] Start: 06-13-2022 End: 06-13-2022 ambulatory [facility] Work Phone: Start: 06-13-2022 End: 06-13-2022 Departed Referred [facility] Start: 06-13-2022 [facility] Start: 06-06-2022 End: 06-06-2022 Departed Referred [facility] Start: 06-06-2022 [facility] Start: 05-30-2022 End: 05-30-2022 ambulatory [facility] Work Phone: Start: 05-30-2022 End: 05-30-2022 Departed Referred [facility] Start: 05-23-2022 End: 05-23-2022 ambulatory [facility] Work Phone: Start: 05-23-2022 End: 05-23-2022 Departed Referred [facility] Start: 05-23-2022 Registered Referred [facility] Start: 05-20-2022 End: 05-20-2022 Emergency department patient visit Abelardo Wilkersongeorgie GOMEZ Work Phone: [facility] Comment on above: Dislodged gastrostom y tube (Primary Dx) Start: 05-16-2022 End: 05-16-2022 Departed Referred [facility] Start: 05-16-2022 Registered Referred [facility] Start: 05-09-2022 End: 05-09-2022 ambulatory [facility] Work Phone: Start: 05-09-2022 End: 05-09-2022 Departed Referred [facility] Start: 05-09-2022 Registered Referred [facility] Start: 05-03-2022 End: 05-03-2022 ambulatory [facility] Work Phone: Start: 05-03-2022 End: 05-03-2022 Departed Referred [facility] [facility] Start: 05-03-2022 Registered Referred [facility] [facility] Start: 04-26-2022 End: 04-26-[address] [facility] Start: 04-26-2022 Registered Referred [facility] [facility] [employer] Start: 04-18-2022 End: 04-18-2022 ambulatory [facility] Work Phone: Start: 04-18-2022 End: 04-18-[address] [facility] Start: 04-18-2022 [facility] Start: 04-14-2022 End: 04-14-2022 ambulatory [facility] Work Phone: Start: 04-14-2022 End: 04-14-[address] [facility] Start: 04-14-2022 Registered Referred [facility] [facility] Start: 04-11-2022 End: 04-11-2022 ambulatory [facility] Work Phone: Start: 04-11-2022 End: 04-11-[address] [facility] Start: 04-11-2022 Registered Referred [facility] [facility] Start: 04-04-2022 End: 04-04-2022 ambulatory [facility] Work Phone: Start: 04-04-2022 End: 04-04-2022 Departed Referred [facility] [facility] Start: 04-04-2022 Registered Referred [facility] [facility] Start: 03-28-2022 End: 03-28-2022 ambulatory [facility] Work Phone: Start: 03-28-2022 End: 03-28-2022 Departed [facility] [facility] [facility] Start: 03-28-2022 Registered Referred [facility] [facility] [employer] [facility] Start: 03-21-2022 End: 03-21-2022 ambulatory [facility] Work Phone: Start: 03-21-2022 End: 03-21-2022 Departed [facility] [facility] Start: 03-21-2022 Registered Ref[facility] [facility] Start: 03-14-2022 End: 03-14-2022 Departed Referred [facility] [facility] Start: 03-14-2022 Registered Ref[facility] [facility] Start: 2022 End: 2022 ambulatory [facility] Work Phone: Start: 2022 End: 2022 Departed Referred [facility] [facility] Start: 2022 Registered Referred [facility] [facility] [facility] Start: 02-28-2022 End: 02-28-2022 Departed Referred [facility] [facility] [facility] Start: 02-28-2022 Registered Referred [facility] [facility] [facility] Start: 02-21-2022 End: 02-21-2022 ambulatory [facility] Work Phone: Start: 02-21-2022 End: 02-21-2022 Departed Referred [facility] [facility] Start: 02-21-2022 Registered Referred [facility] [facility] [facility] [facility] Start: 02-14-2022 End: 02-14-2022 ambulatory [facility] Work Phone: Start: 02-14-2022 End: 02-14-[address] [facility] Start: 02-14-2022 Registered Referred [facility] [facility] [facility] Start: 02-07-2022 End: 02-07-2022 ambulatory [facility] Work Phone: Start: 02-07-2022 End: 02-07-2022 Departed Referred [facility] [facility] [facility] Start: 02-07-2022 Registered Referred [facility] [facility] [employer] [facility] Start: 01-31-2022 End: 01-31-2022 ambulatory [facility] Work Phone: Start: 01-31-2022 End: 01-31-2022 Departed Referred [facility] [facility] Start: 01-31-2022 Registered Referred [facility] [facility] [employer] [facility] Start: 01-24-2022 End: 01-24-2022 ambulatory [facility] Work Phone: Start: 01-24-2022 End: 01-24-2022 Departed Referred [facility] [facility] [facility] [facility] Start: 01-24-2022 Registered Referred [facility] [facility] [employer] Start: 01-17-2022 End: 01-17-2022 Departed Referred [facility] [facility] Start: 01-17-2022 Registered Referred [facility] [facility] [facility] Start: 01-10-2022 End: 01-10-2022 ambulatory [facility] Work Phone: Start: 01-10-2022 End: 01-10-2022 Departed Referred [facility] [facility] Start: 01-10-2022 Registered Referred [facility] [facility] [facility] [facility] Start: 01-04-2022 End: 01-04-2022 ambulatory [facility] Work Phone: Start: 01-04-2022 End: 01-04-2022 Departed Referred [facility] [facility] Start: 01-04-2022 Registered Referred [facility] [facility] Start: 12-27-2021 End: 12-27-2021 ambulatory [facility] Work Phone: Start: 12-27-2021 End: 12-27-2021 Departed Referred [facility] [facility] Start: 12-27-2021 Registered Referred [facility] [facility] [facility] Start: 12-20-2021 End: 12-20-2021 ambulatory [facility] Work Phone: Start: 12-20-2021 End: 12-20-[address] [facility] Start: 12-20-2021 Registered Referred [facility] [facility] [facility] Start: 12-13-2021 End: 12-13-[address] [facility] Start: 12-13-2021 [facility] Start: 12-06-2021 End: 12-06-2021 ambulatory [facility] Work Phone: Start: 12-06-2021 End: 12-06-[address] [facility] Start: 12-06-2021 Registered Referred [facility] [facility] [facility] [facility] Start: 11-29-2021 End: 11-29-2021 ambulatory [facility] Work Phone: Start: 11-29-2021 End: 11-29-[address] [facility] Start: 11-29-2021 Registered Referred [facility] [facility] [facility] Start: 11-22-2021 End: 11-22-2021 Departed [facility] Start: 11-22-2021 [facility]istered [facility] [facility] [facility] Start: 11-15-2021 End: 11-15-[address] [facility] Start: 11-15-2021 [facility] Start: 11-08-2021 End: 11-08-2021 Departed Referred [facility] [facility] Start: 10-25-2021 Registered Referred [facility] [facility] Start: 10-18-2021 Registered Referred Williamson [facility] [facility] [facility] Start: 10-11-2021 Registered Referred Williamson [facility] [facility] [facility] Start: 10-04-2021 Registered Referred Williamson [facility] [facility] [employer] [facility] Start: 09-28-2021 End: 09-28-[address] [facility] Start: 09-28-2021 [facility] Start: 09-20-2021 End: 09-20-[address] [facility] Start: 09-20-2021 [facility] Start: 09-13-2021 End: 09-13-[address] [facility] Start: 09-13-2021 [facility] Start: 09-06-2021 End: 09-06-[address] [facility] Start: 09-06-2021 Registered Referred [facility] [facility] [employer] [facility] Start: 08-30-2021 End: 08-30-[address] [facility] Start: 08-30-2021 Registered [facility] [facility] [facility] Start: 08-23-2021 End: 08-23-2021 Departed Referred [facility] [facility] [facility] [facility] Start: 08-23-2021 Registered Referred [facility] [facility] [facility] Start: 08-18-2021 End: 08-18-[address] [facility] Start: 08-18-2021 [facility] Start: 08-16-2021 End: 08-16-2021 Departed Referred [facility] [facility] [facility] Start: 08-16-2021 Registered Referred [facility] [facility] Start: 08-09-2021 End: 08-09-2021 Departed Referred [facility] [facility] [facility] Start: 08-02-2021 End: 08-02-2021 Departed Referred [facility] [facility] [facility] Start: 08-02-2021 Registered [facility] [facility] Start: 07-26-2021 End: 07-26-[address] [facility] Start: 07-26-2021 Registered Referred [facility] [facility] [employer] [facility] Start: 07-19-2021 End: 07-19-[address] [facility] Start: 07-19-2021 Registered Referred Williamson [facility] [facility] [facility] Start: 07-12-2021 End: 07-12-2021 Departed Referred [facility] [facility] [facility] Start: 07-05-2021 End: 07-05-2021 Departed Referred [facility] [facility] [facility] [facility] Start: 07-05-2021 Registered Referred [facility] [facility] [facility] Start: 06-28-2021 End: 06-28-2021 Departed Referred [facility] [facility] [facility] Start: 06-28-2021 Registered Referred [facility] [facility] Start: 06-21-2021 End: 06-21-2021 Departed Referred [facility] [facility] [facility] Start: 06-21-2021 Registered Referred [facility] [facility] Start: 06-14-2021 Registered Referred Williamson [facility] [facility] Start: 06-07-2021 End: 06-07-[address] [facility] Start: 06-07-2021 Registered Referred Williamson [facility] [facility] Start: 05-31-2021 End: 05-31-2021 [facility] Start: 05-31-2021 Registered Referred [facility] Start: 05-24-2021 End: 05-24-2021 Departed Referred [facility] [employer] Start: 05-17-2021 Registered Referred [facility] [employer] Start: 05-15-2021 End: 05-15-2021 Emergency department patient visit Timothy Burton DO Work Phone: [facility] Comment on above: PEG tube malfunction (HCC) (Primary Dx) Start: 05-14-2021 Registered [facility]erred [facility] Start: 05-10-2021 Registered Referred [facility] [employer] [facility] Start: 05-03-2021 Registered Referred [facility] [employer] Start: 04-26-2021 Registered [facility] Start: 04-19-2021 Registered Referred [facility] Start: 04-12-2021 Registered Referred [facility] Start: 04-07-2021 Registered Referred [facility] [employer] Start: 03-19-2021 End: 03-24-2021 Evaluation and management of inpatient Brady Desai DO Work Phone: [facility] [employer] Comment on above: Respiratory syncytia l virus (RSV) (Primary Dx); Hypoxia Start: 03-18-2021 End: 03-18-2021 Emergency department patient visit Boo aCstro MD Work Phone: [facility] Comment on above: Respiratory syncytia l virus (RSV) (Primary Dx); Hypoxia Start: 10-30-2020 End: 10-30-2020 Emergency department patient visit Bethany Clemons MD Work Phone: [facility] Comment on above: Feeding tube dysfunc tion, initial encounter (Primary Dx) Start: 09-22-2020 End: 09-22-2020 Emergency department patient visit Elizabeth Moura MD Work Phone: [facility] Comment on above: PEG tube malfunction (HCC) (Primary Dx) Start: 06-26-2020 End: 06-26-2020 Emergency department patient visit Abelardo Rios Work Phone: [facility] ED Comment on above: PEG tube malfunction (HCC) (Primary Dx) Start: 05-22-2019 End: 05-22-2019 Patient encounter procedure Jarvis Kendall MD Work Phone: [facility] Work Phone: Start: 05-22-2019 End: 05-22-2019 Pt evaluation Jarvis Kendall MD Work Phone: [facility] Work Phone: Start: 05-16-2019 End: 05-16-2019 Emergency department patient visit Elizabeth Moura MD Work Phone: [facility] Comment on above: Contusion of right h ip, initial encounter (Primary Dx) Start: 08-15-2018 Evaluation and management of inpatient UNKNOWN PROVIDER [facility] Start: 07-08-2018 Evaluation and management of inpatient JORDAN GEUBE [facility] Start: 01-02-2003 End: 01-02-2003 Patient encounter procedure Beni Smithdir Work Phone: [facility] Start: 01-02-2003 Results Only Beni Smithdir Work Phone: [facility] Procedures Date Procedure Procedure Detail Performing Clinician Start: 07-16-2024 Vitamin D, 25-hydrox y measurement Renard GARLAND Comment on above: Vitamin D StatusDefi ciency: <20 ng/mL (50nmol/L)Insufficiency: 20-30 ng/mL (50-75 nmol/L)Sufficiency: 30-100 ng/mL (75-250 nmol/L)Toxicity: >100 ng/mL (>250 nmol/L) Start: 06-27-2024 Urine culture Renard easton GILL Start: 06-27-2024 Urnls dip stick/tabl et reagent auto microscopy Renard Amezquitahola GARLAND Start: 06-24-2024 Measurement of renal function [...] Radiologic exam ches t single view Helen Rodriguezas PA-C Work Phone: Start: 10-02-2023 Ecg routine ecg w/le ast 12 lds trcg only w/o i&r Helen Phoenix Janas PA-C Work Phone: Start: 10-02-2023 Ct head/brain w/o contrast material Helen Phoenix Janas PA-C Work Phone: Start: 01-30-2023 Urine culture [...] Phone: Start: 03-22-2021 Hemoglobin glycosyla td a1c Iasac Stafford MD Work Phone: Start: 03-21-2021 Gluc [...] EMDF, PT, BMP3M, PHOS3, MG3, CK3 #### [facility] [address] [place], [place] #### [id number] #### [facility] [address] [place] [address] Start: 07-27-2018 Microscopic examinat ion of blood, culture Comment on above: Order Comment: Speci men Source Comment:Blood Performed By: #### H EMDF, PT, BMP3M, PHOS3, MG3, CK3 #### [facility] [address] [place] [address] #### [id number] #### [facility] [address] [place] [address] Start: 07-19-2018 Microscopic examinat ion of blood, culture Comment on above: Order Comment: Speci men Source Comment:Blood Performed By: #### H EMDF, PT, BMP3M, PHOS3, MG3, CK3 #### [facility] [address] [place] [address] #### [id number] #### [facility] [address] [place] [address] Start: 01-02-2003 CONVERTED SURGICAL PATHOLOGY Beni Vera Work Phone: Urine culture NEGATED: Highlighted rowStart: 05-22-2019 End: 05-22-2019 Documentation of current medications Ana Stevenson CUSTOMER SUPPORT MANAGER NEGATED: Highlighted rowStart: 05-22-2019 End: 05-22-2019 Smoking cessation education Ana Stevenson CUSTOMER SUPPORT MANAGER Plan of Treatment Date Care Activity Detail Author Start: 2032 RSV Immunization for Adults (1 - 1-dose 75+ series) RSV Immunization for Adults (1 - 1-dose 75+ series) [facility] Start: 01-10-2027 DTaP/Tdap/Td vaccine (2 - Td or Tdap) DTaP/Tdap/Td vaccine (2 - Td or Tdap) [facility] Start: 01-10-2027 DTaP/Tdap/Td vaccine (2 - Td) DTaP/Tdap/Td vaccine (2 - Td) [facility] Work Phone: Start: 01-10-2027 DTaP/Tdap/Td Vaccine s (2 - Td or Tdap) DTaP/Tdap/Td Vaccines (2 - Td or Tdap) [facility] Start: 12-30-2024 Influenza vaccination Influenz a Vaccine (Season Ended) [facility] Start: 03-22-2024 Diabetes mellitus screening Diabetes Screening [facility] Start: 12-31-2023 COVID-19 Vaccine ( season) COVID-19 Vaccine ( season) [facility] Start: 12-31-2023 COVID-19 Vaccine ( season) COVID-19 Vaccine ( season) [facility] Start: 12-31-2023 COVID-19 Vaccine ( season) COVID-19 Vaccine ( season) [facility] Start: 12-31-2023 Influenza vaccination [facility] Start: 01-30-2023 Bacteria identified in Urine by Culture Urine Culture [facility] Start: 01-30-2023 [facility] Start: 12-30-2022 COVID-19 Vaccine ( season) COVID-19 Vaccine ( season) [facility] Start: 2022 Pneumococcal 0-64 ye ars Vaccine (2 of 2 - PPSV23) Pneumococcal 0-64 years Vaccine (2 of 2 - PPSV23) [facility] Start: 2022 Pneumococcal 0-64 ye ars Vaccine (2 of 2) Pneumococcal 0-64 years Vaccine (2 of 2) [facility] Work Phone: Start: 2022 Pneumococcal Vaccine : 65+ Years (2 of 2 - PCV) Pneumococcal Vaccine: 65+ Years (2 of 2 - PCV) [facility] Start: 12-30-2021 Influenza vaccination Influenza Vacc ine (#1) [facility] Start: 12-30-2020 Influenza vaccination S [facility] Start: 12-31-2019 Influenza vaccination Flu vaccine (# 1) [facility] Work Phone: Start: 08-18-2019 A1C test (Diabetic o r Prediabetic) A1C test (Diabetic or Prediabetic) [facility] Work Phone: Start: 08-18-2019 HbA1c (Bld) [Mass fraction] A1C test (Diabetic or Prediabetic) [facility] Work Phone: Start: 08-18-2019 Hemoglobin A1c measurement A1C test (Diabetic or Prediabetic) [facility] Start: 05-22-2019 End: 05-22-2019 Appointment Appointment [facility] Work Phone: Start: 02-07-2019 Lipid panel Lipid screen [facility] Start: 02-07-2019 Lipid screen [facility] screen [facility] Work Phone: Start: 12-30-2018 Influenza vaccination Flu vaccine (# 1) [facility] Work Phone: Start: 01-10-2018 Pneumococcal Vaccine : 50+ Years (2 of 2 - PCV) Pneumococcal Vaccine: 50+ Years (2 of 2 - PCV) [facility] Start: 01-10-2018 Pneumococcal Vaccine : 65+ Years (2 - PCV) Pneumococcal Vaccine: 65+ Years (2 - PCV) [facility] Start: 2017 RSV Immunization age d 60 or older (1 - 1-dose 60+ series) RSV Immunization aged 60 or older (1 - 1-dose 60+ series) [facility] Start: 2007 Colon cancer screen colonoscopy Colon cancer screen colonoscopy [facility] Work Phone: Start: 2007 Screening for malign ant neoplasm of colon Colon cancer screen colonoscopy [facility] Work Phone: Start: 2007 Shingles Vaccine (1 of 2) Shingles Vaccine (1 of 2) [facility] Start: 2007 Zoster Vaccines (1 o f 2) Zoster Vaccines (1 of 2) [facility] Start: 2002 Screening for malign ant neoplasm of colon Colon cancer screen colonoscopy [facility] Start: 1976 Hepatitis A Vaccines (1 of 2 - Risk 2-dose series) Hepatitis A Vaccines (1 of 2 - Risk 2-dose series) [facility] Start: 1975 Hepatitis C screening Hepatitis C Sc reening [facility] Start: 1969 COVID-19 Vaccine (1) COVID-19 Vaccin e (1) [facility] Start: 1969 [facility] Start: 1969 Depression Screen Depression Screen [facility] Start: 1962 COVID-19 Vaccine (1) COVID-19 Vaccin e (1) [facility] Start: 1957 COVID-19 Vaccine (#1) COVID-19 Vacci ne (#1) [facility] Start: 1957 Annual wellness visit Medicare Initial Physical (IPPE) [facility] Start: 1957 Hepatitis B Vaccines (1 of 3 - 3-dose series) Hepatitis B Vaccines (1 of 3 - 3-dose series) [facility] Start: 1957 Lipid panel Lipid Panel [facility] Start: 1957 Screening for malign ant neoplasm of colon [facility] Basic metabolic 2000 panel - Serum or Plasma Basic Metabolic Panel Lab Routine Daily until discontinued starting 03/23/2021, 2 completed [employer] Work Phone: Comment on above: Daily until disconti nued starting 03/23/2021, 2 completed CBC W Auto Different ial panel - Blood CBC Auto Differential Lab Routine Daily until discontinued starting 03/23/2021, 2 completed [employer] Work Phone: Comment on above: Daily until disconti nued starting 03/23/2021, 2 completed End: 06-24-2024 CT Chest WO contrast [employer] Work Phone: Comment on above: Once for 1 Occurrenc es starting 06/24/2024 until 06/24/2024 Culture, Blood 2 Culture, Blood 2 Microbiology STAT 03/19/2021 6:26 PM EST [employer] Work Phone: End: 03-20-2021 Culture, Respiratory Culture, Respiratory Microbiology Routine One Time for 1 Occurrences starting 03/20/2021 until 03/20/2021 [employer] Work Phone: Comment on above: One Time for 1 Occur rences starting 03/20/2021 until 03/20/2021 EKG 12 Lead EKG 12 Lead ECG STAT 03/18/2021 3:20 PM EST [employer] Work Phone: Feeding Tube Feeding Tube Pro cedures Routine 10/30/2020 2:22 PM EDT [employer] Work Phone: End: 09-22-2020 FL WATER SOLUBLE ENEMA W OR WO KUB FL WATER SOLUBLE ENEMA W OR WO KUB Imaging STAT Once for 1 Occurrences starting 09/22/2020 until 09/22/2020 [employer] Work Phone: Comment on above: Once for 1 Occurrenc es starting 09/22/2020 until 09/22/2020 End: 03-23-2021 Glucose [Mass/volume] in Serum or Plasma POCT GLUCOSE Point of Care Testing Routine Now Then Every 6hr for 7 Occurrences starting 03/21/2021 until 03/23/2021 [employer] Work Phone: Comment on above: Now Then Every 6hr f or 7 Occurrences starting 03/21/2021 until 03/23/2021 High Frequency Chest Wall Oscillation (HFCWO) High Frequency Chest Wall Oscillation (HFCWO) Respiratory Care Routine (respiratory use only) until discontinued starting 03/22/2021 [employer] Work Phone: Comment on above: (respirato ry use only) until discontinued starting 03/22/2021 End: 03-20-2021 Legionella Antigen, Urine Legionella Antigen, Urine Microbiology Routine One Time for 1 Occurrences starting 03/20/2021 until 03/20/2021 [employer] Work Phone: Comment on above: One Time for 1 Occur rences starting 03/20/2021 until 03/20/2021 Microscopic examinat ion of blood, culture Culture, Blood Microbiology STAT 03/19/2021 6:26 PM EST [employer] Work Phone: End: 03-20-2021 Microscopic observation [Identifier] in Unspecified specimen by Gram stain Gram Stain Microbiology Routine Once for 1 Occurrences starting 03/20/2021 until 03/20/2021 [employer] Work Phone: Comment on above: Once for 1 Occurrenc es starting 03/20/2021 until 03/20/2021 Oxygen therapy [[facility] Data Set] Initiate Oxygen Therapy Protocol Respiratory Care Routine Daily until discontinued starting 03/20/2021 [employer] Work Phone: Comment on above: Daily until disconti nued starting 03/20/2021 Patient Education \\cps-sql1\\CPS_ PtEducati on\\CDC_FALL_PREVENTION. pdf, \\cps-sql1\\CPS_PtEducati on\\quitting_smoking_[id number].pdf [facility] Work Phone: RT Communication Order RT Commun ication Order Respiratory Care STAT Daily until discontinued starting 03/18/2021 [employer] Work Phone: Comment on above: Daily until disconti nued starting 03/18/2021 RT Communication Order RT Commun ication Order Respiratory Care Routine Daily until discontinued starting 03/20/2021 [employer] Work Phone: Comment on above: Daily until disconti nued starting 03/20/2021 End: 03-20-2021 STREP PNEUMONIAE ANTIGEN STREP PNEUMONIAE ANTIGEN Microbiology Routine One Time for 1 Occurrences starting 03/20/2021 until 03/20/2021 [facility] Work Phone: Comment on above: One Time for 1 Occur rences starting 03/20/2021 until 03/20/2021 End: 03-18-2021 Urinalysis Urinalysis Lab STAT One Time for 1 Occurrences starting 03/18/2021 until 03/18/2021 [facility] Work Phone: Comment on above: One Time for 1 Occur rences starting 03/18/2021 until 03/18/2021 End: 03-18-2021 Urine Drug Screen Urine Drug Screen Lab STAT One Time for 1 Occurrences starting 03/18/2021 until 03/18/2021 [facility] Work Phone: Comment on above: One Time for 1 Occur rences starting 03/18/2021 until 03/18/2021 End: 09-22-2020 XR ABDOMEN (KUB) (SINGLE AP VIEW) XR ABDOMEN (KUB) (SINGLE AP VIEW) Imaging Routine Once for 1 Occurrences starting 09/22/2020 until 09/22/2020 [facility] Work Phone: Comment on above: Once for 1 Occurrenc es starting 09/22/2020 until 09/22/2020 Immunizations Immunization Date Immunization Notes Care Provider [facility] 02-02-2021 influenza virus vacc ine, unspecified formulation 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 2019 Medicaid [id number]. [id number] 2018 Private Health Insurance [id number]. [id number] 2018 Private Health Insurance [facility] xxxxxxxxx 2018-Present [phone] [address] [place] [address] xxxxxxxxx [id number]. [id number] 1957 Unknown [id number] 2.840.1.827098.3.579.2. 668 1957 Unknown [id number] 2.840.1.253655.3.579.2. 668 Private Health Insurance Unknown [id number] 2.840.1.544660.3.579.2. 462 Unknown [id number] 2.16840.1.002675.3.579.2. 462 Unknown [id number] 2.16840.1.177209.3.579.2. 462 Unknown [id number] 2.840.1.463346.3.579.2. 462 Unknown [id number] 2.16840.1.189360.3.579.2. 462 Unknown [id number] 2.16840.1.360088.3.579.2. 462 Unknown [id number] 2.16840.1.690792.3.579.2. 462 Unknown [id number] 2.16840.1.170015.3.579.2. 462 Unknown [id number] 2.16840.1.516194.3.579.2. 462 Unknown [id number] 2.16.840.1.932298.3.579.2. 462 Unknown [id number] 2.16.840.1.504929.3.579.2. 462 Unknown [id number] 2.16.840.1.279677.3.579.2. 462 Unknown [id number] 2.16.840.1.710877.3.579.2. 462 Unknown [id number] 2.16.840.1.558950.3.579.2. 462 Unknown [id number] 2.16.840.1.661764.3.579.2. 462 Unknown [id number] 2.16840.1.216875.3.579.2. 462 Unknown [id number] 2.840.1.110543.3.579.2. 462 Unknown [id number] 2.840.1.641920.3.579.2. 462 Unknown [id number] 2.840.1.541697.3.579.2. 462 Unknown [id number] 2.16.840.1.485385.3.579.2. 462 Unknown [id number] 2.16840.1.113470.3.579.2. 462 Unknown [id number] 2.16840.1.070718.3.579.2. 462 Unknown [id number] 2.840.1.124099.3.579.2. 462 Unknown [id number] 2.16840.1.058372.3.579.2. 462 Unknown [id number] 2.16.840.1.958166.3.579.2. 462 Unknown [id number] 2.16.840.1.602266.3.579.2. 462 Unknown [id number] 2.16.840.1.813170.3.579.2. 462 Unknown [id number] 2.16840.1.053219.3.579.2. 462 Unknown [id number] 2.16.840.1.299032.3.579.2. 462 Unknown [id number] 2..840.1.420667.3.579.2. 462 Unknown [id number] 2.16.840.1.531285.3.579.2. 462 Unknown [id number] 2.840.1.888817.3.579.2. 462 Unknown [id number] 2.840.1.005000.3.579.2. 462 Unknown [id number] 2.840.1.510225.3.579.2. 462 Unknown [id number] 2.840.1.015581.3.579.2. 462 Unknown [id number] 2.840.1.762551.3.579.2. 462 Unknown [id number] 2.840.1.767848.3.579.2. 462 Unknown [id number] 2.840.1.877960.3.579.2. 462 Unknown [id number] 2.840.1.358496.3.579.2. 462 Unknown [id number] 2.840.1.429554.3.579.2. 462 Unknown [id number] 2.840.1.316932.3.579.2. 462 Unknown [id number] 2.840.1.610840.3.579.2. 462 Unknown [id number] 2.840.1.406926.3.579.2. 462 Unknown [id number] 2.840.1.575245.3.579.2. 462 Unknown [id number] 2.840.1.120640.3.579.2. 462 Unknown [id number] 2.840.1.823490.3.579.2. 462 Unknown [id number] 2.16.840.1.037952.3.579.2. 462 Unknown [id number] 2.16.840.1.224117.3.579.2. 462 Unknown [id number] 2.16.840.1.860810.3.579.2. 462 Unknown [id number] 2.16.840.1.319098.3.579.2. 462 Unknown [id number] 2.16.840.1.379592.3.579.2. 462 Unknown [id number] 2.16.840.1.898246.3.579.2. 462 Unknown [id number] 2.16.840.1.657371.3.579.2. 462 Unknown [id number] 2.16.840.1.771024.3.579.2. 462 Unknown [id number] 2.16.840.1.137226.3.579.2. 462 Unknown [id number] 2.16.840.1.305269.3.579.2. 462 Unknown [id number] 2.16.840.1.771641.3.579.2. 462 Unknown [id number] 2.16.840.1.285692.3.579.2. 462 Unknown [id number] 2.16.840.1.064840.3.579.2. 462 Social History Date Type Detail Facility Tobacco smoking status KSIS Unknown if ever smoked [facility] Work Phone: Start: 1955 Sex Assigned At Not on file [facility] Work Phone: Start: 11-05-2018 End: 06-26-2020 Tobacco smoking status NHIS Former smoker [facility] Work Phone: End: 02-06-2016 History of tobacco use Current smoker [facility] Work Phone: End: 02-06-2016 History of tobacco use Cigar Smoker [facility] Work Phone: Start: 02-05-2018 End: 06-26-2020 Tobacco use and exposure Never used [employer] Work Phone: Start: 06-26-2020 End: 05-20-2022 Alcohol intake Current drinker of alcohol (finding) [employer] Work Phone: Start: 07-08-2018 Alcohol Comment 2 times per wo rk, occasionally liquor [employer] Work Phone: Start: 05-10-2022 End: 05-20-2022 Exposure to SARS-CoV-2 (event) Not sure [employer] Work Phone: Start: 09-22-2020 End: 05-20-2022 Alcohol intake [facility] Start: 1955 Sex Assigned At Male [facility] End: 02-06-2016 History of tobacco use Cigarette Smoker [facility] Start: 05-20-2022 End: 10-02-2023 Tobacco use panel [facility] How often to you have a drink containing alcohol? Never [facility] How many standard drinks containing alcohol do you have on a typical day? Patient does not drink [facility] Start: 11-29-2021 End: 08-16-2024 Sex Male (finding) [facility] Tobacco smoking status NHIS Unknown if ever smoked [facility] Work Phone: NEGATED: Highlighted rowStart: 05-22-2019 End: 05-22-2019 Alcohol use Alcohol use [facility] Work Phone: NEGATED: Highlighted rowStart: 05-22-2019 End: 05-22-2019 Assertion Current some day smoker [facility] Work Phone: NEGATED: Highlighted rowStart: 05-22-2019 End: 05-22-2019 Details of drug misuse behavior Details of drug misuse behavior [facility] Work Phone: NEGATED: Highlighted rowStart: 05-22-2019 End: 05-22-2019 Tobacco use and exposure Tobacco use and exposure [facility] Work Phone: Clinical Notes 03-18-2021 to 05-03-2024 Telephone Encounter - Aravind Wallace - 05/03/2024 5:29 PM ESTTelephone Encounter - Aravind Wallace - 05/03/2024 5:29 PM ZACHARY Baptiste - 11/22/2023 11:30 AM EDTDislizzie Instr - CHRIS Note Date & Type Note Facility 05-03-2024 Telephone encounter Note Gissel is calling to let Dr. Burgos know that the medication he prescribed he not certified, she is going to fax the information to the office. [phone] [facility] 05-03-2024 Miscellaneous Notes Gissel is calling to let Dr. Burgos know that the medication he prescribed he not certified, she is going to fax the information to the office. [phone] documented in this encounter [facility] 11-22-2023 History of Presen t illness Narrative Images from the original note were not included. Speech-Language Pathology SPEECH LANGUAGE PATHOLOGY [facility] Modified Barium Swallow Study Patient [...] despite effort. 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 Frequency: Per treating CONTINUOUS DRIER HELPER Barriers: large osteophytes, bridging with anterior projection [...] Prior MBSS?: No, unable to locate in [facility] Current Diet: Puree diet with ?liquid (no information from [place]) Textures tested: - thin liquid, (cup edge) - mildly thick liquid, (cup edge) - puree, (teaspoon) Patient position: lateral Past Medical History: Past Medical History: Diagnosis Date TREVER (acute kidney injury) ([facility]) ([facility]) Alcohol abuse 07/08/2018 Anxiety C1 spinal cord injury ([facility]) ([facility]) Depression Fall 06/2018 Schizophrenia ([facility]) Past Surgical History: Past Surgical History: Procedure Laterality Date CERVICAL FUSION 07/09/2014 C2-6 cervical fusion GASTROSTOMY TUBE PLACEMENT 07/13/2018 TRACHEOSTOMY 07/13/2018 Admission Diagnosis: Patient Active Problem List Diagnosis Date Noted Respiratory syncytial virus (RSV) 03/22/2021 Hypoxia 03/19/2021 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[facility]) ([facility]) 08/16/2018 Chronic latent schizophrenia ([facility]) 08/15/2018 Prolonged Q-T interval on ECG 08/15/2018 Abdominal wall abscess 08/15/2018 Central cord syndrome ([facility]) ([facility]) 08/15/2018 Respiratory failure after trauma ([facility]) 08/15/2018 Pressure ulcer of sacral region, stage 2 ([facility]) 08/09/2018 Urinary retention 07/28/2018 Acute respiratory failure with hypoxia ([facility]) 07/26/2018 Mild bibasilar atelectasis 07/26/2018 Hospital-acquired pneumonia 07/26/2018 Bilateral pleural effusion 07/26/2018 Ileus (CMS/HCC) ([facility]) 07/23/2018 TREVER (acute kidney injury) ([facility]) 07/23/2018 Hypokalemia 07/21/2018 Vertebral artery occlusion, bilateral 07/11/2018 Vitamin D insufficiency 07/10/2018 Alcohol abuse 07/08/2018 Closed wedge compression fracture of first thoracic vertebra ([facility]) 07/08/2018 Traumatic nondisp spondylolisthesis of C3 vertebra with closed fx, initial encounter ([facility]) 07/08/2018 Closed fracture dislocation of cervical spine ([facility]) 07/08/2018 Pain: Pt denies any current pain. Reason for current admission: Pt with h/o of PEG and trach from 2019. Pt is currently decannulated. H/o Biomedical Engineering Aide cervical fusion C2-C6. Noted very large connective [...] able to eat by mouth. Therapy Time CONTINUOUS DRIER HELPER Individual Minutes Time In: 1150 Time Out: 1215 Minutes: 25 ZACHARY Sun documented in this encounter [facility] 10-02-2023 Emergency department Note [facility] at bedside at this time Mami Lantigua RN 10/02/23 9297 [facility] 10-02-2023 Emergency department Note [facility] at bedside at this time Mami Lantigua RN 10/02/23 1427 This RN gave report to Marnie at [facility] at this time Mami Lantigua RN 10/02/23 1358 This RN went to evaluate patient, was on 2L o2 and does not wear at baseline, plan is dc, this RN turned o2 off to trial patient, spo2 monitor on Mami Lantigua RN 10/02/[address] via cart Eloisa Alfaro RN 10/02/23 [address] [facility] ED Patient: Kathya Hooper : 1955 [...] are mis-transcribed.) Fei Farooq MD Acute Care [facility] Fei Farooq MD 10/02/23 0929 Pt was brought in via [facility] from [facility] for Left sided facial droop. Per EMS nurse is new and does not know patient very well but he is A&O x 2 at baseline. Per EMS the nurse states it was 20 mins ago. Contacted nurse that was caring for him and she states that was the first time she has seen him for that day, material handler 1st shift did not report any problems. EMS states [...] schizophrenia. BS 131. documented in this encounter [facility] 10-02-2023 Emergency department Note This RN gave report to Marnie at [facility] at this time Mami Lantigua RN 10/02/23 4339 [facility] 10-02-2023 Emergency department Note This RN went to evaluate patient, was on 2L o2 and does not wear at baseline, plan is dc, this RN turned o2 off to trial patient, spo2 monitor on Mami Lantigua RN 10/02/23 1325 [facility] 10-02-2023 Emergency department Note Pt to ct via cart Eloisa Alfaro RN 10/02/23 1043 [facility] 10-02-2023 Emergency department Triage note Pt was brought in via [facility] from [facility] for Left sided facial droop. Per EMS nurse is new and does not know patient very well but he is A&O x 2 at baseline. Per EMS the nurse states it was 20 mins ago. Contacted nurse that was caring for him and she states that was the first time she has seen him for that day, material handler 1st shift did not report any problems. EMS states [...] facility. Hx of schizophrenia. BS 131. T [facility] 10-02-2023 Physician Emergency department Note Emergency Department Encounter [facility] ED Patient: Kathya Hooper : 1955 [...] [employer] Fei Farooq MD 10/02/23 1129 [employer] Work Phone: 05-20-2022 Emergency department Note Report called to assisted. Copy of Xray report sent with discharge packet Gary Ghosh RN 05/20/222007 [employer] 05-20-2022 Emergency department Note Report called to assisted. Copy of Xray report sent with discharge packet Gary Ghosh RN 05/20/222007 Emergency Department Encounter [facility] ED Patient: Kathya Hooper : 1955 Date of Evaluation: 05/20/2022 ED Supervising Physician: Abelardo Rios DO I independently examined and evaluated Kathya Hooper. This will serve as my Supervisory note as the office clinician of record and shared attestation. I did perform a substantive portion of the visit including all aspects of the Medical Decision Making. I wore appropriate PPE for the entirety of this encounter. In brief, Kathya Hooper is a 67 y.o. male that presents to the emergency department after his G-tube fell out today at the assisted. Upon inspection of the G-tube, it appears [...] tube which fell out today at the assisted. Tube was easily replaced in the emergency room. Will order KUB with dye study to confirm placement and discharge back to the assisted. X-ray confirms due to position within the [...] Rios DO 05/20/222014 documented in this encounter [facility] 05-20-2022 Miscellaneous Notes Associated Order(s): Feeding Tube Replacement Procedure Feeding Tube Replacement Performed by: Dejah Hazel DO Authorized by: Abelardo Rios DO Consent: Consent obtained: Verbal Consent given by: Patient [place] protocol: Patient identity confirmed: Verbally with patient [...] DO Resident 05/20/221931 documented in this encounter [employer] 05-20-2022 Note Associated Order(s): Feeding Tube Replacement Procedure Feeding Tube Replacement Performed by: Dejah Hazel DO Authorized by: Abelardo Rios DO Consent: Consent obtained: Verbal Consent given by: Patient [place] protocol: Patient identity confirmed: Verbally with patient [...] immediate complications Dejah Hazel DO Resident 05/20/221931 [employer] Phone: 05-20-2022 Note Associated Order(s): Feeding Tube Replacement Procedure Feeding Tube Replacement Performed by: Dejah Hazel DO Authorized by: Abelardo Rios DO Consent: Consent obtained: Verbal Consent given by: Patient [place] protocol: Patient identity confirmed: Verbally with patient [...] immediate complications Dejah Hazel DO Resident 05/20/221931 [employer] Phone: 05-20-2022 Physician Emergency department Note Emergency Department Encounter [facility] ED Patient: Kathya Hooper : 1955 Date of Evaluation: 05/20/2022 ED Supervising Physician: Abelardo Rios DO I independently examined and evaluated Kathya Hooper. This will serve as my Supervisory note as the office clinician of record and shared attestation. I did perform a substantive portion of the visit including all aspects of the Medical Decision Making. I wore appropriate PPE for the entirety of this encounter. In brief, Kathya Hooper is a 67 y.o. male that presents to the emergency department after his G-tube fell out today at the assisted. Upon inspection of the G-tube, it appears [...] tube which fell out today at the assisted. Tube was easily replaced in the emergency room. Will order KUB with dye study to confirm placement and discharge back to the assisted. X-ray confirms due to position within the [...] [employer] Abelardo Rios DO 05/20/222014 [employer] Work Phone: 03-24-2021 Note Hospitalist Discharg e [...] Pneumonia. Treated with antibiotics. He resides in [facility]. He was stablized and discharged [...] Result Date: 03/18/2021 [id number] Tomography ACCESSION EXAM DATE/TIME PROCEDURE ORDERING PROVIDER [id number] 03/18/2021 16:26 EST CTA Head/Neck w/ + w/o [id number] -alyson CASTRO CPT code 10998 67405 Q9967 Reason For Exam (CTA Head/Neck w/ + w/o contrast) AMS, dysphasia and ?aphasia possibly since yesterday- very poor historian from assisted w/ unclear prior deficits - here w/ [...] the (more content not included)... [facility] 03-24-2021 Hospital course Narrative Hospitalist Discharge [...] Pneumonia. Treated with antibiotics. He resides in [facility]. He was stablized and discharged [...] Result Date: 03/18/2021 [id number] Computed Tomography ACCESSION EXAM DATE/TIME PROCEDURE ORDERING PROVIDER [id number] 03/18/2021 16:26 EST CTA Head/Neck w/ + w/o 819117 alyson ARCHIBALD CPT code 36880 28644 Q9967 Reason For Exam (CTA Head/Neck w/ + w/o contrast) AMS, dysphasia and ?aphasia possibly since yesterday- very poor historian from assisted w/ unclear prior deficits - here w/ [...] Tomography ACCESSION EXAM DATE/TIME PROCEDURE ORDERING PROVIDER [id number] 03/18/2021 16:27 EST CTA Chest w/ + w/o 832264 -Alyson CASTRO CPT code 12512 Q9967 Reason For Exam (CTA Chest w/ + w/o Contrast) pulmonary embolus Report CTA chest with and without contrast History: chest pain Protocol: 1 mm images after IV contrast, 3D rendering performed by ct on a separate workstation No evidence of [...] Radiology ACCESSION EXAM DATE/TIME PROCEDURE ORDERING PROVIDER [id number] 03/19/2021 17:10 EST CR Chest Portable [id number] -BRADY DESAI CPT code 75599 Reason For Exam (CR Chest Portable) hypoxia [...] Result Date: 03/18/2021 [id number] Diagnostic Radiology ACCESSION EXAM DATE/TIME PROCEDURE ORDERING PROVIDER [id number] 03/18/2021 15:30 EST CR Chest Portable 869586 -BOO CASTRO CPT code 42609 Reason For Exam (CR Chest Portable) sob, [...] Contact Information Primary Emergency Contact: Jason Hooper [facility] Relation: Parent Past Surgical History: Past Surgical History: Procedure Laterality Date CERVICAL FUSION 07/09/2014 C2-6 cervical fusion GASTROSTOMY TUBE PLACEMENT 07/13/2018 TRACHEOSTOMY 07/13/2018 Immunization History: Immunization History Administered Date(s) Administered Pneumococcal Polysaccharide ([id number]) 01/10/2017 Tdap (Boostrix, Adacel) 01/10/2017 Active Problems: Patient Active Problem List Diagnosis Code Closed fracture dislocation of cervical spine ([facility]) S12.9XXA Traumatic nondisp spondylolisthesis of C3 vertebra with closed fx, initial encounter ([facility]) S12.231A Closed wedge compression fracture of first thoracic vertebra ([facility]) S22.010A Central cord syndrome ([facility]) S14.129A Chronic latent schizophrenia ([facility]) F21 Alcohol abuse F10.10 Respiratory failure after trauma ([facility]) J96.90 Vitamin D insufficiency E55.9 Vertebral artery occlusion, 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 Hypokalemia E87.6 Ileus ([facility]) K56.7 TREVER (acute kidney injury) ([facility]) N17.9 Acute respiratory failure with hypoxia ([facility]) J96.01 Hospital-acquired pneumonia J18.9, Y95 Bilateral pleural effusion J90 Mild bibasilar atelectasis J98.11 Urinary retention R33.9 Prolonged Q-T interval on ECG R94.31 Pressure ulcer of sacral region, stage 2 ([facility]) L89.152 Abdominal wall abscess L02.211 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[facility]) K65.4 Hypoxia R09.02 Respiratory syncytial virus [...] MENTAL STATUS:} IV Access: { CHRIS IV ACCESS:842467401} Nursing Mobility/ADLs: Walking {CHP DME ADLs:837908305} Transfer {P DME ADLs:472683016} Bathing {P DME ADLs:676526394} Dressing {CHP DME ADLs:607321145} Toileting {P DME ADLs:789317893} Feeding {P DME ADLs:240429047} Workers Compensation Adjuster {P DME ADLs:380626598} Med Delivery { CHRIS MED Delivery:838081556} Wound Care Documentation and Therapy: Negative Pressure Wound Therapy Abdomen Left (Active) Number of days: 947 Wound Sacrum Mid (Active) Number of days: Elimination: Continence: Bowel: {YES / NO:} Bladder: {YES / NO:} Urinary Catheter: {Urinary Catheter:690667997} Colostomy/Ileostomy/Ileal Conduit: {YES / NO:} Date of Last BM: No intake or output data in the 24 hours ending 03/24/21 1013 I/O last 3 completed shifts: In: 660 [NG/GT:660] Out: - Safety Concerns: { CHRIS Safety Concerns:474327188} Impairments/Disabilities: { CHRIS Impairments/Disabilities:27575112 3} Nutrition Therapy: Current Nutrition Therapy: { CHRIS Diet List:132413601} Routes of Feeding: {[facility] Other Feedings:327772953} Liquids: {[facility] liquid thickness:03339} Daily Fluid Restriction: {CH DME Yes amt example:815451574} Last Modified Barium Swallow with Video (Video Swallowing Test): {Done Not Done Date:} Treatments at the Time of Hospital Discharge: Respiratory Treatments: Oxygen Therapy: {Therapy; copd oxygen:42012} Ventilator: {[facility] Vent List:793009102} Rehab Therapies: {THERAPEUTIC INTERVENTION:4542199140} Weight Bearing Status/Restrictions: {[facility] Weight Bearin} Other Medical Equipment (for information only, NOT a DME order): {EQUIPMENT:744302620} Other Treatments: Patient's personal belongings (please select all that are sent with patient): {[facility] DME Belongings:790770738} RN SIGNATURE: {Esignature:172006575} CASE MANAGEMENT/SOCIAL WORK SECTION Inpatient Status Date: Readmission Risk Assessment Score: Readmission Risk Risk of Unplanned Readmission: 25 Discharging to Facility/ Agency Name: [facility] Address: [address] [place] [address] Dialysis Facility (if applicable) Name: Address: Dialysis Schedule: Phone: Fax: Instrument Repairer Steam Plant/Hr Operations Advisor signature: PHYSICIAN SECTION Prognosis: Good Condition at [...] loss Fluid Accumulation: No significant fluid accumulation Taxi Cab Driver Strength: Not Performed Estimated Daily Nutrient Needs: Energy (kcal): 6039-2904 (25-30 kcal/kg IBW); Weight Used for Energy Requirements: [place] (86.2 kg) Protein (g): 86-103 (1.0-1.2 g protein/kg IBW); Weight Used for Protein Requirements: [place] (86.2 kg) Fluid (ml/day): per MD. At [...] on 03/02/21, October weight= 185.5# on 01/29/21) [place] Body Weight: 190 lbs; % [place] Body Weight 97.8 % BMI: 24 Adjusted [...] Skin, Weight Discharge Planning: Enteral Nutrition Contact: *[phone] Images from the original note were not [...] [place], [facility] [address] [place] [address] Patient - Kathya Hooper, Age - 66 [...] of bed. Pt thought there was a buffer copper in the corner of his room. When pt got his meds he calmed down. Pt now watching tv. Call light within reach. Bed alarm on. Images from the original note were not included. [facility] [address] [place], [place] [id number] Patient - Kathya Hooper, Age - 66 y.o. - 1955 Room Number - [facility]/4654 Consulting - Rafa Michel MD Primary Care Physician - No primary care provider on file. [id number] Date of Admission - 03/19/2021 3:52 PM [...] 66 y.o. - 1955 Room Number - 465/7125 N - 93729 Date of Admission - 03/19/2021 3:52 PM [...] Date 03/21/21 0000 - 03/21/21 2359 Shift 2600-5225 8616-1528 0769-8236 24 Hour Total INTAKE NG/GT(mL/kg) 542(6.4) 542(6.4) [...] included. Hospitalist Progress Note 03/21/2021 9:41 AM [phone]: Please page me for patient care issues. [phone]: Please page [facility] night Hospitalist for any issues. Subjective: Admit Date: 03/19/2021 PCP: No primary care provider on file. Room#: 465/4652 Interval History: Lethargic, hard to arouse this [...] Trach PEG 07/13/2018. [facility] from [facility] to [facility] ED with worsening SOB. Evaluated in ED [...] loss Fluid Accumulation: No significant fluid accumulation Taxi Cab Driver Strength: Not Performed Estimated Daily Nutrient Needs: Energy (kcal): 0939-8994 (25-30 kcal/kg IBW); Weight Used for Energy Requirements: [place] (86.2 kg) Protein (g): 86-103 (1.0-1.2 g protein/kg IBW); Weight Used for Protein Requirements: [place] (86.2 kg) Fluid (ml/day): per MD. At facility receivin mL free water daily from EN and flushes; Method Used for Fluid Requirements: Other (Comment) Nutrition Related Findings: Massimo score= 15. No skin breakdown or edema noted. S/p Trach/PEG, per CONTINUOUS DRIER HELPER note, does not take any food, drink [...] on 03/02/21, October weight= 185.5# on 01/29/21) [place] Body Weight: 190 lbs; % [place] Body Weight 97.8 % BMI: 23.9 BMI [...] Nutrition Contact: 2430 Speech Language Pathology Facility/Department: [facility] TELEMETRY CLINICAL BEDSIDE SWALLOW EVALUATION NAME: Kathya [...] states that she is the only family [phone] Images from the original note were not included. Hospitalist Progress Note 03/20/2021 9:58 AM [phone]: Please page me for patient care issues. [phone]: Please page [facility] night Hospitalist for any issues. Subjective: [...] Narrative NIF -20 documented in this encounter [facility] Work Phone: 03-18-2021 Hospital Discharg Boo Stringer MD - 03/18/2021 Mr. Hooper was seen at the [facility] emergency department for low oxygen [...] cannot be sent through Care Everywhere.Viral Infections ([place])documented in this encounter [facility] Work Phone: Evaluation note Diagnosis PEG tube malfunction (HCC)- Primary Mechanical complication of gastrostomy documented in this encounter [facility] Work Phone: Evaluation note* Diagnosis Feeding tube dysfunction, initial encounter- Primary documented in this encounter [facility] Work Phone: Evaluation note* Diagnosis Respiratory syncytial virus (RSV)- Primary Hypoxia Hypoxemia documented in this encounter [facility] Work Phone: Evaluation note* Diagnosis Respiratory syncytial virus (RSV)- Primary Hypoxia Hypoxemia documented in this encounter [facility] Work Phone: Evaluation note* Diagnosis PEG tube malfunction (HCC)- Primary Mechanical complication of gastrostomy documented in this encounter [facility] Work Phone: Evaluation note* Diagnosis Contusion of right hip, initial encounter- Primary documented in this encounter [facility] Work Phone: Evaluation noteNo assessment information available [facility] Work Phone: Evaluation note* Diagnosis Dyspnea, unspecified type- Primary [facility] Diagnosis Dysphagia, oropharyngeal phase Feeding difficulties Feeding difficulties and mismanagement [facility] Diagnosis Dysphagia, oropharyngeal phase- Primary Feeding difficulties Feeding difficulties and mismanagement Dysphagia, oropharyngeal phase Feeding difficulties Feeding difficulties and mismanagement [facility]* Diagnosis Dislodged gastrostomy tube- Primary documented in this encounter [facility] note* Diagnosis Chronic cough Cough documented in this encounter [facility] note* Diagnosis Chronic cough- Primary Cough Chronic cough Cough [facility]* Attachments The following attachments cannot be sent through Care Everywhere. * PEG (Percutaneous Endoscopic Gastrostomy): Post-op ([place]) documented in this [facility]* Attachments The following attachments cannot be sent through Care Everywhere. * Feeding Tube: General Info ([place] Zealander) documented in this [facility] Work Phone: [facility] Discharge instructions* Instructions* Mary Cochran PA-C - 05/15/2021 Please return to the ED if you have any new or worsening symptoms. documented in this [facility] Work Phone: Hospital Discharge instructions* Attachments The following attachments cannot be sent through Care Everywhere. * Hip Pain ([place]ander) * Contusion ([place] Ze[place]ander) documented in this [facility] Work Phone: Hospital Discharge instructions* Attachments The following attachments cannot be sent through Care Everywhere. * Shortness of Breath (Dyspnea) Discharge Instructions ([place]ander) documented in this [facility] Discharge instructions* Attachments The following attachments cannot be sent through Care Everywhere. 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 [address] [address] Phone: tel: fax: Referral ID Status Reason Start Date Expiration Date Visits Re quested Visits Authorized [id number] Closed 06/12/2024 06/12/2025 1 1 [facility] Summary Purpose Family History No Family History Records FoundNo Family History Records FoundThere may be information available, but it has not been provided by the sender.No Family History Records FoundNo Family History Records FoundNo Family History Records FoundNo Family History Records Found Advance Directives No Advanced Directives Records FoundDocuments on File Type Date Recorded 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 ACP-Advance Directive ACP-Advance Directive 08/07/2018 1:53 PM ACP-Power of Fairing Worker Latest Code Status on File Code Status Date Activated Date Inactivated Comments Full Code 08/15/2018 8:27 PM 08/22/2018 4:31 PM Full Code 08/15/2018 8:12 PM 08/15/2018 8:27 PM Full Code 07/08/2018 8:28 PM 08/01/2018 2:39 PM Documents on File Type Date Recorded 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 ACP-Advance Directive ACP-Power of Fairing Worker ACP-Advance Directive 08/07/2018 1:53 PM Latest Code Status on File Code Status Date Activated Date Inactivated Comments Full Code 03/20/2021 12:17 AM Full Code 08/15/2018 8:27 PM 08/22/2018 4:31 PM Documents on File Type Date Recorded 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 ACP-Advance Directive ACP-Power of Fairing Worker ACP-Advance Directive 03/26/2021 9:48 AM ACP-Advance Directive 08/07/2018 1:53 PM Latest Code Status on File Code Status Date Activated Date Inactivated Comments Full Code 03/20/2021 12:17 AM 03/24/2021 3:23 PM Documents on File Type Date Recorded 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 Advance Directives and Livin g Will Advance Directives and Livin g Will 08/07/2018 1:53 PM Power of Fairing Worker Documents on File Type Date Recorded 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 * Feeding Tube: General Info ([place]ander) documented in this encounter Assessments Diagnosis PEG [...] Complaint and Reason for Visit [facility] Complaint [facility]UR[facility] Chief [facility]LO[facility] Chief [facility] Chief [facility] BLOOD WORK [facility] Chief Complaint [facility] LAB WOR K [facility] NUR[facility] HOME LABWORK [facility] BLOOD WORK [facility] Chief Complaint [facility] LAB WOR K [facility] NUR[facility] HOME [facility] Chief [facility] Chief [facility] B[facility] W OR[facility] Chief [facility] W [facility] LABWORK Chief Complaint LABWORK LAB[facility] WORK [facility] Chief Complaint [facility] Chief Complaint [facility] Chief [facility] K [facility] Chief [facility] Chief Complaint [facility] WOR K LABWORK [facility] Chief Complaint [facility] K [facility] Chief Complaint [facility] Chief Complaint [facility] Chief [facility] K [facility] LABWORK Chief Complaint [facility] Chief [facility] Chief [facility] Chief Complaint [facility]WORK [facility] WORK Chief Complaint LABWORK LAB[facility] LAB[facility] WORK LABWORK [facility] Chief Complaint [facility] Chief [facility] Chief [facility] Chief Complaint LABWORK [facility] Chief [facility] Chief [facility] Chief Complaint [facility] Chief Complaint [facility] Chief [facility] Chief [facility] Chief [facility] Chief [facility]WORK Chief Complaint [facility] WOR K LABWORK [facility] Chief [facility] K [facility]WORK [facility] Chief Complaint LABWORK [facility] LABWORK\\ Chief Complaint LABWORK [facility] LABWORK\\ LABWORK [facility] Complaint [facility] WOR [facility] LABWORK\\ LAB[facility] LABWORK Chief Complaint [facility] WOR K [facility]WORK\\ LAB[facility] LABWORK Chief [facility]\\ [facility]WORK Chief Complaint [facility]\\ [facility] Chief [facility]\\ [facility] LABWORK Chief Complaint [facility] WOR K LABWORK [facility] LABWORK\\ LAB[facility] LAB[facility] Chief Complaint [facility] WOR K LABWORK\\ LAB[facility] WORK [facility] WORK [facility] WORK LABWORK LAB[facility] LAB[facility] LAB[facility] LABWORK Chief Complaint LABWORK\\ LABWORK [facility] WORK [facility] WORK LABWORK LABWORK LAB[facility] LAB[facility] LABWORK Chief Complaint [facility] WOR K LABWORK [facility] WORK LABWORK LABWORK LABWORK LAB[facility] LAB[facility] LAB[facility] LABWORK Chief Complaint [facility] WORK LABWORK LABWORK LAB[facility] LAB[facility] LAB[facility] LABWORK [facility] WORK LABWORK Chief Complaint LABWORK [facility] WORK LABWORK LAB[facility] LABWORK [facility] LABWORK [facility]WORK LAB[facility] LABWORK Chief Complaint [facility]WORK [facility] LABWORK LABWORK LAB[facility] LABWORK LAB[facility] LABWORK [facility] Chief Complaint [facility] WOR K LABWORK LABWORK LAB[facility] LAB[facility] LAB[facility] LABWORK [facility]WORK [facility]WORK Chief Complaint [facility]\\ [facility] [facility] Chief Complaint [facility] WORK LAB[facility] WORK LABWORK\\ LAB[facility] LAB WORK LABWORK [facility] LABWORK [facility] WORK Chief Complaint Admit Date [facility] WORK March 11 5:00am [facility] WORK March 18 5:00am LABWORK March 25, 2024 5:00am LABWORK April 01, 2024 5 :00am [facility] WORK April 08, 2024 5:00am LABWORK April 15, 2024 5:00am LABWORK April 22, 2024 5:00am [facility] WORK April 29 5:00am LABWORK May 06, 2024 5: 00am [facility] LAB WORK May 13, 2024 4:00am LABWORK May 20, 2024 5 :00am [facility] WORK May 27, 2024 5:00am LABWORK June 03, 2024 5 :00am LABWORK June 07, 2024 5 :00am [facility] LAB WORK June 10 5:00am LABWORK June 17, 2024 5:00am [facility] LAB WORK June 24 5:00am Chief Complaint Admit Date LABWORK April 01, 2024 5 :00am [facility] WORK April 08, 2024 5:00am LABWORK April 15, 2024 5:00am LABWORK April 22, 2024 5:00am [facility] WORK April 29 5:00am LABWORK May 06, 2024 5: 00am [facility] WORK May 13, 2024 4:00am LABWORK May 20, 2024 5 :00am [facility] LAB WORK May 27, 2024 5:00am LABWORK June 03, 2024 5 :00am LABWORK June 07, 2024 5 :00am [facility] LAB WORK June 10 5:00am LABWORK June 17, 2024 5:00am [facility] LAB WORK June 24 5:00am [facility] WORK June 27 2:00am [facility] WORK July 01, 2024 4: 00am LABWORK July 08, 2024 5:0 0am [facility] LAB WORK July 16, 2024 4 :00am Chief Complaint Admit Date [facility] WORK April 08, 2024 5:00am LABWORK April 15, 2024 5:00am LABWORK April 22, 2024 5:00am [facility] WORK April 29 5:00am LABWORK May 06, 2024 5: 00am [facility] WORK May 13, 2024 4:00am LABWORK May 20, 2024 5 :00am [facility] LAB WORK May 27, 2024 5:00am LABWORK June 03, 2024 5 :00am LABWORK June 07, 2024 5 :00am [facility] WORK June 10 5:00am LABWORK June 17, 2024 5:00am [facility] WORK June 24 5:00am [facility] WORK June 27 2:00am [facility] WORK July 01, 2024 4: 00am LABWORK July 08, 2024 5:0 0am [facility] WORK July 15, 2024 5 :00am [facility] WORK July 16, 2024 4 :00am Chief Complaint Admit Date LABWORK April 15, 2024 5:00am LABWORK April 22, 2024 5:00am [facility] WORK April 29 5:00am LABWORK May 06, 2024 5: 00am [facility] WORK May 13, 2024 4:00am LABWORK May 20, 2024 5 :00am [facility] WORK May 27, 2024 5:00am LABWORK June 03, 2024 5 :00am LABWORK June 07, 2024 5 :00am [facility] WORK June 10 5:00am LABWORK June 17, 2024 5:00am [facility] WORK June 24 5:00am [facility] WORK June 27 2:00am [facility] July 01, 2024 4: 00am LABWORK July 08, 2024 5:0 0am [facility] WORK July 15, 2024 5 :00am [facility] WORK July 16, 2024 4 :00am [facility] WORK July 22, 2024 5 :00am Chief Complaint Admit Date LABWORK April 22, 2024 5:00am [facility] WORK April 29 5:00am LABWORK May 06, 2024 5: 00am [facility] WORK May 13, 2024 4:00am LABWORK May 20, 2024 5 :00am [facility] WORK May 27, 2024 5:00am LABWORK June 03, 2024 5 :00am LABWORK June 07, 2024 5 :00am [facility] LAB WORK June 10 5:00am LABWORK June 17, 2024 5:00am [facility] WORK June 24 5:00am [facility] WORK June 27 2:00am [facility] WORK July 01, 2024 4: 00am LABWORK July 08, 2024 5:0 0am [facility] WORK July 15, 2024 5 :00am [facility] WORK July 16, 2024 4 :00am [facility] WORK July 22, 2024 5 :00am LABWORK July 29, 2024 5:0 0am Chief Complaint Admit Date [facility] WORK May 13, 2024 4:00am LABWORK May 20, 2024 5 :00am [facility] WORK May 27, 2024 5:00am LABWORK June 03, 2024 5 :00am LABWORK June 07, 2024 5 :00am [facility] WORK June 10 5:00am LABWORK June 17, 2024 5:00am [facility] WORK June 24 5:00am [facility] WORK June 27 2:00am [facility] WORK July 01, 2024 4: 00am LABWORK July 08, 2024 5:0 0am [facility] WORK July 15, 2024 5 :00am [facility] WORK July 16, 2024 4 :00am [facility] WORK July 22, 2024 5 :00am LABWORK July 29, 2024 5:0 0am [facility] WORK August 05, 2024 5: 00am [facility] WORK August 12, 2024 5 :00am Chief Complaint Admit Date LABWORK May 20, 2024 5 :00am [facility] WORK May 27, 2024 5:00am LABWORK June 03, 2024 5 :00am LABWORK June 07, 2024 5 :00am [facility] WORK June 10 5:00am LABWORK June 17, 2024 5:00am [facility] WORK June 24 5:00am [facility] WORK June 27 2:00am [facility] WORK July 01, 2024 4: 00am LABWORK July 08, 2024 5:0 0am [facility] WORK July 15, 2024 5 :00am [facility] WORK July 16, 2024 4 :00am [facility] WORK July 22, 2024 5 :00am LABWORK July 29, 2024 5:0 0am [facility] WORK August 05, 2024 5: 00am [facility] WORK August 12, 2024 5 :00am LABWORK August 26, 2024 5:0 0am Chief Complaint Admit Date LABWORK June 03, 2024 5 :00am LABWORK June 07, 2024 5 :00am [facility] WORK June 10 5:00am LABWORK June 17, 2024 5:00am [facility] WORK June 24 5:00am [facility] WORK June 27 2:00am [facility] WORK July 01, 2024 4: 00am LABWORK July 08, 2024 5:0 0am [facility] WORK July 15, 2024 5 :00am [facility] WORK July 16, 2024 4 :00am [facility] WORK July 22, 2024 5 :00am LABWORK July 29, 2024 5:0 0am [facility] WORK August 05, 2024 5: 00am [facility] WORK August 12, 2024 5 :00am [facility] WORK August 19, 2024 4 :00am [facility] WORK August 23, 2024 5 :00am LABWORK August 26, 2024 5:0 0am LABWORK September 09, 2024 5:00a m Chief Complaint Admit Date LABWORK June 07, 2024 5 :00am [facility] LAB WORK June 10 5:00am LABWORK June 17, 2024 5:00am [facility] WORK June 24 5:00am [facility] WORK June 27 2:00am [facility] WORK July 01, 2024 4: 00am LABWORK July 08, 2024 5:0 0am [facility] WORK July 15, 2024 5 :00am [facility] WORK July 16, 2024 4 :00am [facility] WORK July 22, 2024 5 :00am LABWORK July 29, 2024 5:0 0am [facility] WORK August 05, 2024 5: 00am [facility] WORK August 12, 2024 5 :00am [facility] WORK August 19, 2024 4 :00am [facility] WORK August 23, 2024 5 :00am LABWORK August 26, 2024 5:0 0am [facility] LAB WORK September 02, 2024 4:00 am LABWORK September 09, 2024 5:00a m LABWORK September 11, 2024 5:00a m Chief Complaint Admit Date [facility] WORK July 01, 2024 4: 00am LABWORK July 08, 2024 5:0 0am [facility] LAB WORK July 15, 2024 5 :00am [facility] WORK July 16, 2024 4 :00am [facility] WORK July 22, 2024 5 :00am LABWORK July 29, 2024 5:0 0am [facility] WORK August 05, 2024 5: 00am [facility] WORK August 12, 2024 5 :00am [facility] WORK August 19, 2024 4 :00am [facility] WORK August 23, 2024 5 :00am LABWORK August 26, 2024 5:0 0am [facility] LAB WORK September 02, 2024 4:00 am LABWORK September 09, 2024 5:00a m LABWORK September 11, 2024 5:00a m [facility] LAB WORK September 16, 2024 5:0 0am [facility] LAB WORK September 24, 2024 4:0 0am Chief Complaint Admit Date [facility] WORK August 05, 2024 5: 00am [facility] WORK August 12, 2024 5 :00am [facility] WORK August 19, 2024 4 :00am [facility] WORK August 23, 2024 5 :00am LABWORK August 26, 2024 5:0 0am [facility] LAB WORK September 02, 2024 4:00 am LABWORK September 09, 2024 5:00a m LABWORK September 11, 2024 5:00a m [facility] LAB WORK September 16, 2024 5:0 0am [facility] WORK September 24, 2024 4:0 0am LABWORK September 30, 2024 5:00a m LABWORK October 07, 2024 5:00a m [facility] LAB WORK October 14, 2024 4: 00am [facility] LAB WORK October 21, 2024 4: 00am LABWORK October 28, 2024 5:00 am [facility] LAB WORK November 04, 2024 4:0 0am [facility] WORK November 11, 2024 5: 00am [...] [facility] DATE CREATED AUTHOR AUTHOR'S ORGANIZ ATION 01/06/2025 [facility] Source Comments (unrecognize d section and content) In the event this informatio n is protected by the Federal Confidentiality of Alcohol and Drug Abuse Patient Records regulations: The Federal rules restrict any use of the information to criminally investigate or prosecute any alcohol or drug abuse patient.[facility] Reason for Visit (unrecogniz ed section and [...] Provider: Nancy Solorio RN)1040 (Stopped - Provider: aSndeep Thompson RN) cefepime (MAXIPIME) 2000 mg IVPB [...] Pearl RN)2207 (Given - Provider: Nancy Solorio, RN) 0940 [...] Cabrera RCP)2037 (Given - Provider: Perla Loyola SHIP/REC/DOC CONTROL) 1020 (Given - Provider: Gabriel Soares SHIP/REC/DOC CONTROL)1200 (Due)1600 (Due)2000 (Due) lansoprazole (PREVACID SOLUTAB) disintegrating [...] Status Dates Renard Burgos Attending Provider Active Bacteriologist Soil Relationship Specialty Start Date End Date Renard Burgos [address] [place] [phone] PCP - General Internal Medicine 10/16/23 Bacteriologist Soil Relationship Specialty Start Date End Date Renard Burgos [address] [place] [phone] PCP - General Internal Medicine 10/16/23 Bacteriologist Soil Relationship Specialty Start Date End Date Renard Burgos [address] [place] [phone] PCP - General Internal Medicine 10/16/23 Bacteriologist Soil Relationship Specialty Start Date End Date Renard Burgos [address] [place] [phone] PCP - General Internal Medicine 10/16/23 Team [...] Status: Active Member Role Status Dates Renard GALRAND Attending Provider Active Sta rt: April 08, [...] Provider Active Sta rt: September 09, 2024 Bacteriologist Soil Relationship Specialty Start Date End Date Renard Burgos [address] [phone] PCP - General Internal Medicine 10/16/23 Team [...] Status: Active Member Role/Relationship Status Dates Renard Amezquitahola GARLAND Attending Provider Active Sta rt: November [...] BE BASED ON THE PRIMARY CLINICAL RECORDS. [facility] [employer] provides no warranty or guarantee of the accuracy or completeness of information in this document.
[2025-01-10 08:08] LABS: Anion Gap 9 (5-15); BUN 15 mg/dL (4-19); BUN/Creat Ratio 27.7 RATIO (10-20); Calcium,Total 8.2 mg/dL (7.6-11.0); Carbon Dioxide 25.6 mmol/L (21.0-32.0); Chloride 106 mmol/L (98-108); Glucose 126 mg/dL (70-99); Potassium 3.8 mmol/L (3.3-5.1)
== END | disposition home or self-care (01) ==
LOC: OLS.SANC 05:00
PROVIDERS: Visit Provider Internal Medicine
DX: N40.0 Benign prostatic hyperplasia without lower urinary tract symptoms (principal); M62.81 Muscle weakness (generalized); J95.821 Acute postprocedural respiratory failure
CPT/HCPCS: 36415; 80048

== ENCOUNTER → 2025-01-13 | Outpatient (REF) | payer MEDICAID, SELFPAY ==
[2025-01-13 08:16] LABS: Hematocrit 40.2 % (40-54); Hemoglobin 13.3 g/dL (13.0-16.5); Immature Granulocytes Count 0.030 X10^3/uL (0.0-0.0); Mean Corp Hgb Conc 33.1 g/dL (32-36); Mean Corpuscular Volume 92.0 fL (80-94); Mean Platelet Vol. 11.5 fl (6.2-12.0); NRBC Flagged by Analyzer 0 % (0-5); Platelet Count 198 K/mm3 (150-450); RBC Distribution Width CV 13.2 % (11.6-14.6); RBC Distribution Width SD 44.6 fl (35.1-43.9); Red Blood Count 4.37 M/mm3 (4.6-6.2); White Blood Count 9.2 K/mm3 (4.4-11.0)
== END | disposition home or self-care (01) ==
LOC: OLS.SANC 05:00
PROVIDERS: Visit Provider Internal Medicine
DX: Z79.899 Other long term (current) drug therapy (principal)
CPT/HCPCS: 36415; 85025

== ENCOUNTER → 2025-01-20 | Outpatient (REF) | payer MEDICAID, SELFPAY ==
[2025-01-20 09:14] LABS: Hematocrit 36.3 % (40-54); Hemoglobin 11.6 g/dL (13.0-16.5); Immature Granulocytes Count 0.050 X10^3/uL (0.0-0.0); Mean Corp Hgb Conc 32.0 g/dL (32-36); Mean Corpuscular Volume 92.6 fL (80-94); Mean Platelet Vol. 10.6 fl (6.2-12.0); NRBC Flagged by Analyzer 0 % (0-5); Platelet Count 248 K/mm3 (150-450); RBC Distribution Width CV 13.1 % (11.6-14.6); RBC Distribution Width SD 44.6 fl (35.1-43.9); Red Blood Count 3.92 M/mm3 (4.6-6.2); White Blood Count 7.6 K/mm3 (4.4-11.0)
== END | disposition home or self-care (01) ==
LOC: OLS.SANC 04:00
PROVIDERS: PCP Internal Medicine; Referring Provider Internal Medicine; Visit Provider Internal Medicine
DX: Z79.899 Other long term (current) drug therapy (principal)
CPT/HCPCS: 36415; 85025

== ENCOUNTER → 2025-01-27 | Outpatient (REF) | payer MEDICAID, SELFPAY ==
--- OUTSIDE RECORDS SUMMARY | 2024-06-24 17:49 | XMS RPT_ITS ---
Author Name Auto Generated Organization [facility] Care Team Providers Care Customer Counter Associate Name Role Phone RASHAAD SMITH Attending Unavailable RASHAAD SMITH Referring Unavailable RENARD OLIVA Primary Care Unavailable PROBLEMS DATE TYPE CONDITION / CODE ATTENDING STATUS [facility] 06/24/2024 Admitting Diagnosis Chronic cough / R05.3(ICD-10) RASHAAD SMITH Active [facility] PROCEDURES No Procedure Records Found RESULTS CT CHEST WO IV CONTRAST Observed: 2024 8:07 AM Status: F Source: [employer] [facility] 1955 [id number] Exam Date/Time: 06/24/2024 16:30 Procedure: CT CHEST WO IV CONTRAST Ordering Provider: SMITH DARINKA Reason For Exam: r05.[address] CHEST WITHOUT CONTRAST CLINICAL INDICATION: Cough and dysphagia Serial axial CT images of the chest were acquired without administration of intravenous contrast. Coronal and sagittal reformatted images were also made available for interpretation. Dose reduction was employed with automated exposure control. COMPARISON: CT the chest dated March 18, 2021 FINDINGS: Patchy groundglass densities are noted involving the bilateral lower lobes. There is no pleural effusion or pneumothorax. No pulmonary nodules are identified. Evaluation of the mediastinal and vascular structures is somewhat limited by the lack of intravenous contrast. Enlarged precarinal lymph node is again noted measuring approximately 1.1 cm. Enlarged subcarinal lymph node is again noted measuring approximately 1.4 cm. The heart size is within normal limits. There is no pericardial effusion. The thoracic aorta is normal in caliber. Coronary artery calcification: Scattered coronary artery calcification is noted. The visualized portion of the upper abdomen is unremarkable. Thinning syndesmophytes are noted throughout the visualized thoracic and lower cervical spine. There is ossification of the supraspinous ligament. IMPRESSION: Nonspecific groundglass densities are noted in the bilateral lower lobes. Correlate with concern for atypical infection Report Dictated on Electronically Signed By: Andres Ruiz MD Electronically Signed Date/Time: 06/26/2024 8:07 AM EST Cough x 2months 36 Observed: 05/03/2024 5:29 PM Status: COMPLETED Source: [facility] Gissel is calling to let Dr. Oliva know that the medication he prescribed he not certified, she is going to fax the information to the office. [phone] ALLERGIES No Allergies Records Found ENCOUNTERS ADMIT/DISCHARGE ACCOUNT NUMBER ADMITTING ENCOUNTER CLASS LOC ATION SOURCE 06/24/2024/06/24/2024 [id number] Ambulatory [place] [id number] [facility] PAYERS ENCOUNTER GUARANTOR PAYER SUBSCRIBER SOURCE 06/24/2024 [place] [id number] Date:1291-10-39Zpsk Name:Medicaid KATHYA Maya KORIOB: [id number] [place] [address] [facility]
--- OUTSIDE RECORDS SUMMARY | 2024-06-24 17:49 | XMS RPT_ITS ---
Author Name Auto Generated Organization [facility] Care Team Providers Care Comp Field Case Manager Name Role Phone RASHAAD SMITH Attending Unavailable RASHAAD SMITH Referring Unavailable RENARD OLIVA Primary Care Unavailable PROBLEMS DATE TYPE CONDITION / CODE ATTENDING STATUS [facility] 06/24/2024 Admitting Diagnosis Chronic cough / R05.3(ICD-10) RASHAAD SMITH Active [facility] [employer] [facility] PROCEDURES No Procedure Records Found RESULTS CT CHEST WO IV CONTRAST Observed: 2024 8:07 AM Status: F Source: [facility] CANNON [facility] 1955 [id number] Exam Date/Time: 06/24/2024 16:30 Procedure: CT CHEST [...] Observed: 05/03/2024 5:29 PM Status: COMPLETED Source: [facility] Gissel is calling to let Dr. Oliva know that the medication he prescribed he not certified, she is going to fax the information to the office. [phone] ALLERGIES No Allergies Records Found ENCOUNTERS ADMIT/DISCHARGE ACCOUNT NUMBER ADMITTING ENCOUNTER CLASS LOC ATION SOURCE 06/24/2024/06/24/2024 [id number] Ambulatory [place] [phone] [facility] PAYERS ENCOUNTER GUARANTOR PAYER SUBSCRIBER SOURCE 06/24/2024 [place]: [id number] Date:2397-28-35Ybzz Name:Medicaid KATHYA Maya KORIOB: [id number] [place] [address] [facility]
[2025-01-27 08:37] LABS: Hematocrit 38.2 % (40-54); Hemoglobin 12.9 g/dL (13.0-16.5); Immature Granulocytes Count 0.040 X10^3/uL (0.0-0.0); Mean Corp Hgb Conc 33.8 g/dL (32-36); Mean Corpuscular Volume 89.5 fL (80-94); Mean Platelet Vol. 10.6 fl (6.2-12.0); NRBC Flagged by Analyzer 0 % (0-5); Platelet Count 247 K/mm3 (150-450); RBC Distribution Width CV 13.3 % (11.6-14.6); RBC Distribution Width SD 43.2 fl (35.1-43.9); Red Blood Count 4.27 M/mm3 (4.6-6.2); White Blood Count 9.3 K/mm3 (4.4-11.0)
== END | disposition home or self-care (01) ==
LOC: OLS.SANC 04:00
PROVIDERS: Referring Provider Internal Medicine; Visit Provider Internal Medicine
DX: N40.0 Benign prostatic hyperplasia without lower urinary tract symptoms (principal)
CPT/HCPCS: 36415; 85025

== ENCOUNTER → 2025-02-03 | Outpatient (REF) | payer MEDICAID, SELFPAY ==
[2025-02-03 08:26] LABS: Hematocrit 40.1 % (40-54); Hemoglobin 13.4 g/dL (13.0-16.5); Immature Granulocytes Count 0.040 X10^3/uL (0.0-0.0); Mean Corp Hgb Conc 33.4 g/dL (32-36); Mean Corpuscular Volume 89.5 fL (80-94); Mean Platelet Vol. 11.0 fl (6.2-12.0); NRBC Flagged by Analyzer 0 % (0-5); Platelet Count 243 K/mm3 (150-450); RBC Distribution Width CV 13.2 % (11.6-14.6); RBC Distribution Width SD 43.0 fl (35.1-43.9); Red Blood Count 4.48 M/mm3 (4.6-6.2); White Blood Count 9.3 K/mm3 (4.4-11.0)
== END | disposition home or self-care (01) ==
LOC: OLS.SANC 05:00
PROVIDERS: Visit Provider Internal Medicine
DX: Z79.899 Other long term (current) drug therapy (principal)
CPT/HCPCS: 36415; 85025

== ENCOUNTER → 2025-02-10 04:00 | Outpatient (REF) | payer MEDICAID, SELFPAY ==
[2025-02-10 07:50] LABS: Hematocrit 43.9 % (40-54); Hemoglobin 14.2 g/dL (13.0-16.5); Immature Granulocytes Count 0.030 X10^3/uL (0.0-0.0); Mean Corp Hgb Conc 32.3 g/dL (32-36); Mean Corpuscular Volume 91.6 fL (80-94); Mean Platelet Vol. 11.3 fl (6.2-12.0); NRBC Flagged by Analyzer 0 % (0-5); Platelet Count 217 K/mm3 (150-450); RBC Distribution Width CV 13.6 % (11.6-14.6); RBC Distribution Width SD 45.8 fl (35.1-43.9); Red Blood Count 4.79 M/mm3 (4.6-6.2); White Blood Count 9.0 K/mm3 (4.4-11.0)
== END ==
LOC: OLS.SANC 04:00
PROVIDERS: Referring Provider Internal Medicine; Visit Provider Internal Medicine
DX: N40.0 Benign prostatic hyperplasia without lower urinary tract symptoms (principal); E03.9 Hypothyroidism, unspecified
CPT/HCPCS: 36415; 85025

== ENCOUNTER → 2025-02-17 05:00 | Outpatient (REF) | payer MEDICAID, SELFPAY ==
--- OUTSIDE RECORDS SUMMARY | 2025-02-17 03:58 | XMS RPT_ITS | CCD ---
Author Organization [facility] Care Team Providers Care Advanced Practice Registered Nurse Name Role Phone JORDAN OREILLY Attending Unavailable PROVIDER, UNKNOWN Referring Unavailable Nathanael Cazares Primary Care Unavailable PROVIDER, UNKNOWN Referring Unavailable Nathanael Cazares Primary Care Unavailable Jaime Lindquist Attending Unavailable Unavailable Primary Care Provider UnavailBethany Navarrete Primary Care Provider Feliciano Kendall MD Unavailable [phone] Bethany Russell MD Primary Care Provider [phone] Unavailable Primary Care Provider Unavailclifton Latif MD, Jenn Edwin Primary Care Provider Unavailable Primary Care Provider UnavailRenard Mccann Primary Care Provider Unavailable Primary Care Provider UnavailRENARD Mccann Attending Unavailable RENARD BURGOS Referring Unavailable RENADR BURGOS Primary Care Unavailable RASHAAD SMITH Attending [...] Katsaros OLS, Renard Attending Unavailable Katsaros OLS, Renrad Attending Unavailable Katsaros OLS, Renard Attending Unavailable Katsaros OLS, Renard Attending Unavailable Katsaros OLS, Renard Attending Unavailable Katsaros OLS, Renard Attending Unavailable Katsaros OLS, Renard Attending Unavailable Loretta GARLAND, Renard Attending Unavailable Loretta GARLAND, Renard Attending Unavailable Loretta GARLAND, Renard Attending Unavailable Loretta GARLAND, Renard Referring Unavailable Loretta GARLAND, Renard Attending Unavailable Loretta GARLAND, Renard Attending Unavailable Loretta GARLAND, Renard Referring Unavailable Loretta GARLAND, Renard Referring Unavailable Loretta GARLAND, Renard Attending Unavailable Loretta GARLAND, Renard Attending Unavailable Loretta GARLAND, Renard Referring Unavailable Loretta GARLAND, Renard Attending Unavailable Loretta GARLAND, Renard Attending Unavailable Loretta GARLAND, Renard Attending Unavailable Loretta GARLAND, Renard Referring Unavailable Loretta GARLAND, Renard Attending Unavailable Renard Jackson Primary Care Unavailable Loretta GARLAND, Renard Attending Unavailable Medications Current Medications Medication Drug Class(es) Dates Sig (Normalized) Sig (Original) Acetaminophen (18 sources) Start: 03-20-2021 acetaminophen (TYLENOL) tablet 650 mg Start: 05-22-2019 ACETAMINOPHEN 325 MG TABS 2 tablet via peg tube as needed ACETAMINOPHEN [id number] Ana [facility] albuterol 0.83 mg/ml inhalation solution (1 source) beta2-Adrenergic Agonist Start: 03-19-2021 albut veronica (PROVENTIL) nebulizer solution 2.5 mg albuterol 0.833 mg/ml / ipratropium bromide 0.167 mg/ml inhalation solution (18 sources) Anticholinergic, beta2-Adrenergic Agonist Start: 03-20-2021 ipratropium-alb utero l (DUONEB) nebulizer solution 1 ampule Start: 05-22-2019 IPRATROPIUM-AL BUTEROL 0.5-2.5 (3) MG/3ML SOLN 3ml via nebulizer every 4 hours as needed IPRATROPIUM-ALBUTEROL [id number] Ana Diesch INORGANIC CHEMISTRY PROFESSOR Start: 08-22-2018 take 3 mL by inhalat ion every four hours ipratropium-albuterol (DUONEB) 0.5-2.5 (3) MG/3ML SOLN nebulizer solution Inhale 3 mLs into the lungs every 4 hours 360 mL 0 08/22/2018 Active aspirin 81 mg chewable tablet (9 sources) Platelet Aggregation Inhibitor, Nonsteroidal Anti-inflammatory Drug Start: 05-22-2019 ASPIRIN ADULT LOW STRENGTH 81 MG CHEW one tablet via peg tube daily ASPIRIN [id number] Ana PeoplesOn license [facility] Start: 08-23-2018 aspirin 81 MG chewable tablet 1 tablet by Per NG tube route daily 30 tablet 3 08/23/2018 Active atorvastatin 40 mg oral tablet (9 sources) HMG-CoA Reductase Inhibitor Start: 05-22-2019 ATORVASTATIN CALCIUM 40 MG TABS one tablet via peg tube daily ATORVASTATIN CALCIUM [id number] Ana PeoplesOn license of [facility] Start: 08-22-2018 atorvastatin ( LIPITOR) 40 MG tablet 1 tablet by Per NG tube route nightly 30 tablet 3 08/22/2018 Active castor oil 0.788 mg/mg / dominican balsam 0.087 mg/mg topical ointment (7 sources) Standardized Chemical Allergen Start: 08-22-2018 Balsam [place] O [place] (VENELEX) OINT ointment Apply topically [...] 250mg via peg tube twice daily CLOZAPINE [id number] Ana PeoplesOn license of [facility] Start: 08-22-2018 cloZAPine (AILYN ZARIL) [...] via peg tube twice daily DOCUSATE SODIUM [id number] Ana Stevenson [facility] Start: 08-22-2018 docusate (COLA CE) 50 MG/5ML liquid 10 mLs by Per NG tube route 2 times daily 0 08/22/2018 Active take [address] [facility] twice daily docusate sodium (Colace) 100 [...] one tablet via peg tube nightly MELATONIN [id number] Ana [facility] Start: 08-22-2018 melatonin 3 MG TABS tablet [...] needed. 0 08/23/2018 Active polyethylene glycol 3350 16019 mg powder for oral solution (1 source) [...] Sig (Normalized) Sig (Original) barium sulfate (Varibar [place], Varibar Honey) 40 % suspension 5 [...] SUPP every 24 hours as needed BISACODYL [id number] Ana Diesch INORGANIC CHEMISTRY PROFESSOR Start: 05-22-2019 BISACODYL EC 5 MG TBEC one tablet via peg tube daily as needed BISACODYL [id number] Ana Diesch INORGANIC CHEMISTRY PROFESSOR chlorhexidine gluconate 1.2 mg/ml mouthwash (10 sources) Start: 05-22-2019 PERIDEX 0.12 % SOLN 15ml twice daily CHLORHEXIDINE GLUCONATE [id number] Ana Stevenson LPN chlorhexidine (P eridex) 0.12 % solution Use 15 mL in the mouth or throat if needed for wound care. Active cholecalciferol 1000 unt oral tablet (16 sources) Vitamin D Start: 05-22-2019 VITAMIN D3 25 MCG (1000 UT) TABS one tablet via peg tube daily CHOLECALCIFEROL [id number] Ana Stevenson LPN cholecalciferol (SM Vitamin D3) 25 MCG (1000 UT) tablet Take 1,000 Units by mouth daily. Active dextromethorphan hydrobromide 2 mg/ml / guaiFENesin 20 mg/ml oral solution (1 source) Uncompetitive X-axafnv-J-aspartate Receptor Antagonist, Sigma-1 Agonist Start: 05-22-2019 ROBITUSSIN PEAK COLD DM SYRP 5ml via peg tube every 4 hours as needed for cough DEXTROMETHORPHAN-GUAIFENESIN SYRP [id number] Ana Stevenson LPN magnesium hydroxide 240 mg/ml oral suspension (1 source) Start: 05-22-2019 MILK OF MAGNESIA CONCENTRATE SUSP 30ml via peg tube every 24 hours MAGNESIUM HYDROXIDE SUSP [id number] Ana Stevenson LPN methylPREDNISolone 40 mg injection (2 sources) Corticosteroid Start: 03-20-2021 End: 03-24-2021 methylPREDNISolone sodium (SOLU-MEDROL) injection 40 mg MULTIPLE VITAMINS-MINERALS (1 source) Start: 05-22-2019 MENS MULTIVITAMIN TABS one tablet via peg tube daily MULTIPLE VITAMINS-MINERALS [id number] Ana Stevenson LPN POLYETHYLENE GLYCOL 1450 (1 source) Start: 05-22-2019 POLYETHYLENE GLYCOL 1450 POW D 17 grams via peg tube twice daily POLYETHYLENE GLYCOL 1450 [id number] Ana Stevenson LPN SENNOSIDES-DOCUSATE SODIUM (1 source) Start: 05-22-2019 SENNA PLUS 8.6-50 MG TABS on e tablet via peg tube daily SENNOSIDES-DOCUSATE SODIUM [id number] Ana Stevenson LPN 50 ml sodium chloride [...] Complications of surgical procedures or medical care (7 sources) Gastrostomy infection; 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 Mood disorders (2 sources) Major depressive [...] Onset: 9 07-11-2018 Other aftercare (2 sources) retirement (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; Translations: [exterminator helper (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] Onset: 9 Episodic Other aftercare (2 sources) Other termite exterminator helper (current) drug therapy; Translations: [Other shelter (current) drug therapy] Onset: 5 Episodic Other connective tissue disease (1 source) Fat necrosis; 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 Other connective tissue disease (2 sources) Arthrodesis status; Translations: [Arthrodesis status] Onset: 9 Episodic Other connective tissue disease (1 source) Muscle weakness (generalized); Translations: [Muscle weakness (generalized)] Onset: 5 Episodic Other diseases of bladder and urethra [...] restraint status; Translations: [Physical restraint status] Onset: Episodic Respiratory failure; insufficiency; arrest (adult) (5 [...] 9 07-23-2018 Episodic Other aftercare (1 source) retirement (current) use of antibiotics; Translations: [retirement (current) use of antibiotics] Onset: 5 Episodic Other aftercare (1 source) exterminator helper (current) use of 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; Translations: [exterminator helper (current) use of 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] Onset: 5 Episodic [...] Interpretation Reference Range Facility CBC W/Diff, Automatedon 01-29 Absolute Lymph 2.53 X10 3/uL Normal 0.83-4.51 [facility] Comment on above: Order Comment: 109 Performed By: #### L 100.0100 ####[facility] [address] [place], [address] Absolute Neut 5.5 X10 3/uL Normal 2.0-7.7 [facility] Comment on above: Order Comment: 109 Performed By: #### L 100.0100 ####[facility] [address] [place], [address] Basophils/100 WBC (Bld) 0.7 % Normal 0-1 [facility] Comment on above: Order Comment: 109 Performed By: #### L 100.0100 ####[facility] [address] [place], [address] Eosinophils/100 WBC (Bld) 0.8 % Normal 0-5 [facility] Comment on above: Order Comment: 109 Performed By: #### L 100.0100 ####[facility] [address] [place], [address] Erythrocyte distribution width (RBC) [Ratio] 13.6 % Normal 11.6-14.6 [facility] Comment on above: Order Comment: 109 Performed By: #### L 100.0100 ####[facility] [address] [place], [address] Hematocrit (Bld) [Volume fraction] 43.9 % Normal 40-54 [facility] Comment on above: Order Comment: 109 Performed By: #### L 100.0100 ####[facility] [address] [place], [address] Hemoglobin (Bld) [Mass/Vol] 14.2 g/dL Normal 13.0-16.5 [facility] Comment on above: Order Comment: 109 Performed By: #### L 100.0100 ####[facility] [address] [place], [address] IG% 0.300 Normal 0.0-0.9 [facility] Comment on above: Order Comment: 109 Result Comment: IG% - Immature Granulocytes (promyelocytes, myelocytes andmetamyelocytes) > 1% indicates that a LEFT SHIFT is Present. Performed By: #### L 100.0100 ####[facility] [address] [place], [address] Lymphocytes/100 WBC (Bld) 28.0 % Normal 19-41 [facility] Comment on above: Order Comment: 109 Performed By: #### L 100.0100 ####[facility] [address] [place], [address] MCH (RBC) [Entitic mass] 29.6 pg Normal 27.0-32.0 [facility] Comment on above: Order Comment: 109 Performed By: #### L 100.0100 ####[facility] [address] [place], [address] MCHC (RBC) [Mass/Vol] 32.3 g/dL Normal 32-36 [facility] Comment on above: Order Comment: 109 Performed By: #### L 100.0100 ####[facility] [address] [place], [address] MCV (RBC) [Entitic vol] 91.6 fL Normal 80-94 [facility] Comment on above: Order Comment: 109 Performed By: #### L 100.0100 ####[facility] [address] [place], [address] Monocytes/100 WBC (Bld) 8.9 % Normal 0-10 [facility] Comment on above: Order Comment: 109 Performed By: #### L 100.0100 ####[facility] [address] [place], [address] Neutrophils/100 WBC (Bld) 61.3 % Normal 47-70 [facility] Comment on above: Order Comment: 109 Performed By: #### L 100.0100 ####[facility] [address] [place], [address] Nucleated RBC (Bld) [#/Vol] 0 10*3/uL Normal 0-5 [facility] Comment on above: Order Comment: 109 Performed By: #### L 100.0100 ####[facility] [address] [place], [address] Platelet mean volume (Bld) [Entitic vol] 11.3 fL Normal 6.2-12.0 [facility] Comment on above: Order Comment: 109 Performed By: #### L 100.0100 ####[facility] [address] [place], [address] Platelets (Bld) [#/Vol] 217 10*3/uL Normal 150-450 [facility] Comment on above: Order Comment: 109 Performed By: #### L 100.0100 ####[facility] [address] [place], [address] RBC (Bld) [#/Vol] 4.79 10*6/uL Normal 4.6-6.2 [facility] Comment on above: Order Comment: 109 Performed By: #### L 100.0100 ####[facility] [address] [place], [address] RDW SD 45.8 fl High 35.1-43.9 [facility] Comment on above: Order Comment: 109 Performed By: #### L 100.0100 ####[facility] [address] [place], [address] WBC (Bld) [#/Vol] 9.0 10*3/uL Normal 4.4-11.0 [facility] Comment on above: Order Comment: 109 Performed By: #### L 100.0100 ####[facility] [address] [place], [address] CBC W/Diff, Automatedon 10-0 -2024 Absolute Lymph 2.12 X10 3/uL Normal 0.83-4.51 [facility] Comment on above: Order Comment: 109.1 Performed By: #### L 100.0100 ####[facility] [address] [place], [address] Absolute Neut 6.0 X10 3/uL Normal 2.0-7.7 [facility] Comment on above: Order Comment: 109.1 Performed By: #### L 100.0100 ####[facility] [address] [place], [address] Basophils/100 WBC (Bld) 0.5 % Normal 0-1 [facility] Comment on above: Order Comment: 109.1 Performed By: #### L 100.0100 ####[facility] [address] [place], [address] Eosinophils/100 WBC (Bld) 0.8 % Normal 0-5 [facility] Comment on above: Order Comment: 109.1 Performed By: #### L 100.0100 ####[facility] [address] [place], [address] Erythrocyte distribution width (RBC) [Ratio] 13.2 % Normal 11.6-14.6 [facility] Comment on above: Order Comment: 109.1 Performed By: #### L 100.0100 ####[facility] [address] [place], [address] Hematocrit (Bld) [Volume fraction] 40.1 % Normal 40-54 [facility] Comment on above: Order Comment: 109.1 Performed By: #### L 100.0100 ####[facility] [address] [place], [address] Hemoglobin (Bld) [Mass/Vol] 13.4 g/dL Normal 13.0-16.5 [facility] Comment on above: Order Comment: 109.1 Performed By: #### L 100.0100 ####[facility] [address] [place], [address] IG% 0.400 Normal 0.0-0.9 [facility] Comment on above: Order Comment: 109.1 Result Comment: IG% - Immature Granulocytes (promyelocytes, myelocytes andmetamyelocytes) > 1% indicates that a LEFT SHIFT is Present. Performed By: #### L 100.0100 ####[facility] [address] [place], [address] Lymphocytes/100 WBC (Bld) 22.9 % Normal 19-41 [facility] Comment on above: Order Comment: 109.1 Performed By: #### L 100.0100 ####[facility] [address] [place], [address] MCH (RBC) [Entitic mass] 29.9 pg Normal 27.0-32.0 [facility] Comment on above: Order Comment: 109.1 Performed By: #### L 100.0100 ####[facility] [address] [place], [address] MCHC (RBC) [Mass/Vol] 33.4 g/dL Normal 32-36 [facility] Comment on above: Order Comment: 109.1 Performed By: #### L 100.0100 ####[facility] [address] [place], [address] MCV (RBC) [Entitic vol] 89.5 fL Normal 80-94 [facility] Comment on above: Order Comment: 109.1 Performed By: #### L 100.0100 ####[facility] [address] [place], [address] Monocytes/100 WBC (Bld) 10.8 % High 0-10 [facility] Comment on above: Order Comment: 109.1 Performed By: #### L 100.0100 ####[facility] [address] [place], [address] Neutrophils/100 WBC (Bld) 64.6 % Normal 47-70 [facility] Comment on above: Order Comment: 109.1 Performed By: #### L 100.0100 ####[facility] [address] [place], [address] Nucleated RBC (Bld) [#/Vol] 0 10*3/uL Normal 0-5 [facility] Comment on above: Order Comment: 109.1 Performed By: #### L 100.0100 ####[facility] [address] [place], [address] Platelet mean volume (Bld) [Entitic vol] 11.0 fL Normal 6.2-12.0 [facility] Comment on above: Order Comment: 109.1 Performed By: #### L 100.0100 ####[facility] [address] [place], [address] Platelets (Bld) [#/Vol] 243 10*3/uL Normal 150-450 [facility] Comment on above: Order Comment: 109.1 Performed By: #### L 100.0100 ####[facility] [address] [place], [address] RBC (Bld) [#/Vol] 4.48 10*6/uL Low 4.6-6.2 [facility] Comment on above: Order Comment: 109.1 Performed By: #### L 100.0100 ####[facility] [address] [place], [address] RDW SD 43.0 fl Normal 35.1-43.9 [facility] Comment on above: Order Comment: 109.1 Performed By: #### L 100.0100 ####[facility] [address] [place], [address] WBC (Bld) [#/Vol] 9.3 10*3/uL Normal 4.4-11.0 [facility] Comment on above: Order Comment: 109.1 Performed By: #### L 100.0100 ####[facility] [address] [place], [address] CBC W/Diff, Automatedon -2 Absolute Lymph 2.19 X10 3/uL Normal 0.83-4.51 [facility] Comment on above: Order Comment: 109.1 Performed By: #### L 100.0100 ####[facility] [address] [place], [address] Absolute Neut 6.3 X10 3/uL Normal 2.0-7.7 [facility] Comment on above: Order Comment: 109.1 Performed By: #### L 100.0100 ####[facility] [address] [place], [address] Basophils/100 WBC (Bld) 0.3 % Normal 0-1 [facility] Comment on above: Order Comment: 109.1 Performed By: #### L 100.0100 ####[facility] [address] [place], [address] Eosinophils/100 WBC (Bld) 0.6 % Normal 0-5 [facility] Comment on above: Order Comment: 109.1 Performed By: #### L 100.0100 ####[facility] [address] [place], [address] Erythrocyte distribution width (RBC) [Ratio] 13.3 % Normal 11.6-14.6 [facility] Comment on above: Order Comment: 109.1 Performed By: #### L 100.0100 ####[facility] [address] [place], [address] Hematocrit (Bld) [Volume fraction] 38.2 % Low 40-54 [facility] Comment on above: Order Comment: 109.1 Performed By: #### L 100.0100 ####[facility] [address] [place], [address] Hemoglobin (Bld) [Mass/Vol] 12.9 g/dL Low 13.0-16.5 [facility] Comment on above: Order Comment: 109.1 Performed By: #### L 100.0100 ####[facility] [address] [place], [address] IG% 0.400 Normal 0.0-0.9 [facility] Comment on above: Order Comment: 109.1 Result Comment: IG% - Immature Granulocytes (promyelocytes, myelocytes andmetamyelocytes) > 1% indicates that a LEFT SHIFT is Present. Performed By: #### L 100.0100 ####[facility] [address] [place], [address] Lymphocytes/100 WBC (Bld) 23.7 % Normal 19-41 [facility] Comment on above: Order Comment: 109.1 Performed By: #### L 100.0100 ####[facility] [address] [place], [address] MCH (RBC) [Entitic mass] 30.2 pg Normal 27.0-32.0 [facility] Comment on above: Order Comment: 109.1 Performed By: #### L 100.0100 ####[facility] [address] [place], [address] MCHC (RBC) [Mass/Vol] 33.8 g/dL Normal 32-36 [facility] Comment on above: Order Comment: 109.1 Performed By: #### L 100.0100 ####[facility] [address] [place], [address] MCV (RBC) [Entitic vol] 89.5 fL Normal 80-94 [facility] Comment on above: Order Comment: 109.1 Performed By: #### L 100.0100 ####[facility] [address] [place], [address] Monocytes/100 WBC (Bld) 6.8 % Normal 0-10 [facility] Comment on above: Order Comment: 109.1 Performed By: #### L 100.0100 ####[facility] [address] [place], [address] Neutrophils/100 WBC (Bld) 68.2 % Normal 47-70 [facility] Comment on above: Order Comment: 109.1 Performed By: #### L 100.0100 ####[facility] [address] [place], [address] Nucleated RBC (Bld) [#/Vol] 0 10*3/uL Normal 0-5 [facility] Comment on above: Order Comment: 109.1 Performed By: #### L 100.0100 ####[facility] [address] [place], [address] Platelet mean volume (Bld) [Entitic vol] 10.6 fL Normal 6.2-12.0 [facility] Comment on above: Order Comment: 109.1 Performed By: #### L 100.0100 ####[facility] [address] [place], [address] Platelets (Bld) [#/Vol] 247 10*3/uL Normal 150-450 [facility] Comment on above: Order Comment: 109.1 Performed By: #### L 100.0100 ####[facility] [address] [place], [address] RBC (Bld) [#/Vol] 4.27 10*6/uL Low 4.6-6.2 [facility] Comment on above: Order Comment: 109.1 Performed By: #### L 100.0100 ####[facility] [address] [place], [address] RDW SD 43.2 fl Normal 35.1-43.9 [facility] Comment on above: Order Comment: 109.1 Performed By: #### L 100.0100 ####[facility] [address] [place], [address] WBC (Bld) [#/Vol] 9.3 10*3/uL Normal 4.4-11.0 [facility] Comment on above: Order Comment: 109.1 Performed By: #### L 100.0100 ####[facility] [address] [place], [address] CBC W/Diff, Automatedon 09-06 02-2024 Absolute Lymph 2.11 X10 3/uL Normal 0.83-4.51 [facility] Comment on above: Order Comment: 109.1 Performed By: #### L 100.0100 ####[facility] [address] [place], [address] Absolute Neut 4.5 X10 3/uL Normal 2.0-7.7 [facility] Comment on above: Order Comment: 109.1 Performed By: #### L 100.0100 ####[facility] [address] [place], [address] Basophils/100 WBC (Bld) 0.5 % Normal 0-1 [facility] Comment on above: Order Comment: 109.1 Performed By: #### L 100.0100 ####[facility] [address] [place], [address] Eosinophils/100 WBC (Bld) 1.1 % Normal 0-5 [facility] Comment on above: Order Comment: 109.1 Performed By: #### L 100.0100 ####[facility] [address] [place], [address] Erythrocyte distribution width (RBC) [Ratio] 13.1 % Normal 11.6-14.6 [facility] Comment on above: Order Comment: 109.1 Performed By: #### L 100.0100 ####[facility] [address] [place], [address] Hematocrit (Bld) [Volume fraction] 36.3 % Low 40-54 [facility] Comment on above: Order Comment: 109.1 Performed By: #### L 100.0100 ####[facility] [address] [place], [address] Hemoglobin (Bld) [Mass/Vol] 11.6 g/dL Low 13.0-16.5 [facility] Comment on above: Order Comment: 109.1 Performed By: #### L 100.0100 ####[facility] [address] [place], [address] IG% 0.700 Normal 0.0-0.9 [facility] Comment on above: Order Comment: 109.1 Result Comment: IG% - Immature Granulocytes (promyelocytes, myelocytes andmetamyelocytes) > 1% indicates that a LEFT SHIFT is Present. Performed By: #### L 100.0100 ####[facility] [address] [place], [address] Lymphocytes/100 WBC (Bld) 27.9 % Normal 19-41 [facility] Comment on above: Order Comment: 109.1 Performed By: #### L 100.0100 ####[facility] [address] [place], [address] MCH (RBC) [Entitic mass] 29.6 pg Normal 27.0-32.0 [facility] Comment on above: Order Comment: 109.1 Performed By: #### L 100.0100 ####[facility] [address] [place], [address] MCHC (RBC) [Mass/Vol] 32.0 g/dL Normal 32-36 [facility] Comment on above: Order Comment: 109.1 Performed By: #### L 100.0100 ####[facility] [address] [place], [address] MCV (RBC) [Entitic vol] 92.6 fL Normal 80-94 [facility] Comment on above: Order Comment: 109.1 Performed By: #### L 100.0100 ####[facility] [address] [place], [address] Monocytes/100 WBC (Bld) 10.1 % High 0-10 [facility] Comment on above: Order Comment: 109.1 Performed By: #### L 100.0100 ####[facility] [address] [place], [address] Neutrophils/100 WBC (Bld) 59.7 % Normal 47-70 [facility] Comment on above: Order Comment: 109.1 Performed By: #### L 100.0100 ####[facility] [address] [place], [address] Nucleated RBC (Bld) [#/Vol] 0 10*3/uL Normal 0-5 [facility] Comment on above: Order Comment: 109.1 Performed By: #### L 100.0100 ####[facility] [address] [place], [address] Platelet mean volume (Bld) [Entitic vol] 10.6 fL Normal 6.2-12.0 [facility] Comment on above: Order Comment: 109.1 Performed By: #### L 100.0100 ####[facility] [address] [place], [address] Platelets (Bld) [#/Vol] 248 10*3/uL Normal 150-450 [facility] Comment on above: Order Comment: 109.1 Performed By: #### L 100.0100 ####[facility] [address] [place], [address] RBC (Bld) [#/Vol] 3.92 10*6/uL Low 4.6-6.2 [facility] Comment on above: Order Comment: 109.1 Performed By: #### L 100.0100 ####[facility] [address] [place], [address] RDW SD 44.6 fl High 35.1-43.9 [facility] Comment on above: Order Comment: 109.1 Performed By: #### L 100.0100 ####[facility] [address] [place], [address] WBC (Bld) [#/Vol] 7.6 10*3/uL Normal 4.4-11.0 [facility] Comment on above: Order Comment: 109.1 Performed By: #### L 100.0100 ####[facility] [address] [place], [address] CBC W/Diff, Automatedon -05 05-2024 Absolute Lymph 1.91 X10 3/uL Normal 0.83-4.51 [facility] Comment on above: Order Comment: 109-1 Performed By: #### L 100.0100 ####[facility] [address] [place], [address] Absolute Neut 6.4 X10 3/uL Normal 2.0-7.7 [facility] Comment on above: Order Comment: 109-1 Performed By: #### L 100.0100 ####[facility] [address] [place], [address] Basophils/100 WBC (Bld) 0.5 % Normal 0-1 [facility] Comment on above: Order Comment: 109-1 Performed By: #### L 100.0100 ####[facility] [address] [place], [address] Eosinophils/100 WBC (Bld) 0.8 % Normal 0-5 [facility] Comment on above: Order Comment: 109-1 Performed By: #### L 100.0100 ####[facility] [address] [place], [address] Erythrocyte distribution width (RBC) [Ratio] 13.2 % Normal 11.6-14.6 [facility] Comment on above: Order Comment: 109-1 Performed By: #### L 100.0100 ####[facility] [address] [place], [address] Hematocrit (Bld) [Volume fraction] 40.2 % Normal 40-54 [facility] Comment on above: Order Comment: 109-1 Performed By: #### L 100.0100 ####[facility] [address] [place], [address] Hemoglobin (Bld) [Mass/Vol] 13.3 g/dL Normal 13.0-16.5 [facility] Comment on above: Order Comment: 109-1 Performed By: #### L 100.0100 ####[facility] [address] [place], [address] IG% 0.300 Normal 0.0-0.9 [facility] Comment on above: Order Comment: 109-1 Result Comment: IG% - Immature Granulocytes (promyelocytes, myelocytes andmetamyelocytes) > 1% indicates that a LEFT SHIFT is Present. Performed By: #### L 100.0100 ####[facility] [address] [place], [address] Lymphocytes/100 WBC (Bld) 20.7 % Normal 19-41 [facility] Comment on above: Order Comment: 109-1 Performed By: #### L 100.0100 ####[facility] [address] [place], [address] MCH (RBC) [Entitic mass] 30.4 pg Normal 27.0-32.0 [facility] Comment on above: Order Comment: 109-1 Performed By: #### L 100.0100 ####[facility] [address] [place], [address] MCHC (RBC) [Mass/Vol] 33.1 g/dL Normal 32-36 [facility] Comment on above: Order Comment: 109-1 Performed By: #### L 100.0100 ####[facility] [address] [place], [address] MCV (RBC) [Entitic vol] 92.0 fL Normal 80-94 [facility] Comment on above: Order Comment: 109-1 Performed By: #### L 100.0100 ####[facility] [address] [place], [address] Monocytes/100 WBC (Bld) 8.1 % Normal 0-10 [facility] Comment on above: Order Comment: 109-1 Performed By: #### L 100.0100 ####[facility] [address] [place], [address] Neutrophils/100 WBC (Bld) 69.6 % Normal 47-70 [facility] Comment on above: Order Comment: 109-1 Performed By: #### L 100.0100 ####[facility] [address] [place], [address] Nucleated RBC (Bld) [#/Vol] 0 10*3/uL Normal 0-5 [facility] Comment on above: Order Comment: 109-1 Performed By: #### L 100.0100 ####[facility] [address] [place], [address] Platelet mean volume (Bld) [Entitic vol] 11.5 fL Normal 6.2-12.0 [facility] Comment on above: Order Comment: 109-1 Performed By: #### L 100.0100 ####[facility] [address] [place], [address] Platelets (Bld) [#/Vol] 198 10*3/uL Normal 150-450 [facility] Comment on above: Order Comment: 109-1 Performed By: #### L 100.0100 ####[facility] [address] [place], [address] RBC (Bld) [#/Vol] 4.37 10*6/uL Low 4.6-6.2 [facility] Comment on above: Order Comment: 109-1 Performed By: #### L 100.0100 ####[facility] [address] [place], [address] RDW SD 44.6 fl High 35.1-43.9 [facility] Comment on above: Order Comment: 109-1 Performed By: #### L 100.0100 ####[facility] [address] [place], [address] WBC (Bld) [#/Vol] 9.2 10*3/uL Normal 4.4-11.0 [facility] Comment on above: Order Comment: 109-1 Performed By: #### L 100.0100 ####[facility] [address] [place], [address] Basic Metabolic Profile (BMP )on 01-10-2025 BUN/CRE 27.7 RATIO High 10-20 [facility] Comment on above: Order Comment: 109.1 Performed By: #### L 500.2500 ####[facility] [address] [place], [address] Calcium [Mass/Vol] 8.2 mg/dL Normal 7.6-11.0 [facility] Comment on above: Order Comment: 109.1 Performed By: #### L 500.2500 ####[facility] [address] [place], [address] Chloride [Moles/Vol] 106 mmol/L Normal 98-108 [facility] Comment on above: Order Comment: 109.1 Performed By: #### L 500.2500 ####[facility] [address] [place], [address] CO2 [Moles/Vol] 25.6 mmol/L Normal 21.0-32.0 [facility] Comment on above: Order Comment: 109.1 Performed By: #### L 500.2500 ####[facility] [address] [place], [address] Creatinine [Mass/Vol] 0.54 mg/dL Low 0.70-1.20 [facility] Comment on above: Order Comment: 109.1 Performed By: #### L 500.2500 ####[facility] [address] [place], [address] GAP 9 Normal 5-15 [facility] Comment on above: Order Comment: 109.1 Performed By: #### L 500.2500 ####[facility] [address] [place], [address] GFR/1.73 sq M.predicted among non-blacks MDRD (S/P/Bld) [Vol rate/Area] 109 mL/min/{1.73_m2} Normal >60 [facility] Comment on above: Order Comment: 109.1 Result Comment: mL/m in/1.73m2 CKD-EPI Creatinine Equation (2020) Performed By: #### L 500.2500 ####[facility] [address] [place], [address] Glucose [Mass/Vol] 126 mg/dL High 70-99 [facility] Comment on above: Order Comment: 109.1 Performed By: #### L 500.2500 ####[facility] [address] [place], [address] Potassium [Moles/Vol] 3.8 mmol/L Normal 3.3-5.1 [facility] Comment on above: Order Comment: 109.1 Performed By: #### L 500.2500 ####[facility] [address] [place], [address] Sodium [Moles/Vol] 140 mmol/L Normal 133-145 [facility] Comment on above: Order Comment: 109.1 Performed By: #### L 500.2500 ####[facility] [address] [place], [address] Urea nitrogen [Mass/Vol] 15 mg/dL Normal 4-19 [facility] Comment on above: Order Comment: 109.1 Performed By: #### L 500.2500 ####[facility] [address] [place], [address] CBC W/Diff, Automatedon 09-0 8-2024 PLT EST ADEQUATE Normal ADEQ [facility] Comment on above: Order Comment: 109.1 Performed By: #### L 100.0100 ####[facility] [address] [place], [address] CBC W/Diff, Automatedon 09-0 2-2024 Absolute Lymph 1.87 X10 3/uL Normal 0.83-4.51 [facility] Comment on above: Order Comment: 109.1 Performed By: #### L 100.0100 ####[facility] [address] [place], [address] Absolute Neut 5.3 X10 3/uL Normal 2.0-7.7 [facility] Comment on above: Order Comment: 109.1 Performed By: #### L 100.0100 ####[facility] [address] [place], [address] Basophils/100 WBC (Bld) 0.4 % Normal 0-1 [facility] Comment on above: Order Comment: 109.1 Performed By: #### L 100.0100 ####[facility] [address] [place], [address] Eosinophils/100 WBC (Bld) 0.6 % Normal 0-5 [facility] Comment on above: Order Comment: 109.1 Performed By: #### L 100.0100 ####[facility] [address] [place], [address] Erythrocyte distribution width (RBC) [Ratio] 13.1 % Normal 11.6-14.6 [facility] Comment on above: Order Comment: 109.1 Performed By: #### L 100.0100 ####[facility] [address] [place], [address] Hematocrit (Bld) [Volume fraction] 41.3 % Normal 40-54 [facility] Comment on above: Order Comment: 109.1 Performed By: #### L 100.0100 ####[facility] [address] [place], [address] Hemoglobin (Bld) [Mass/Vol] 13.4 g/dL Normal 13.0-16.5 [facility] Comment on above: Order Comment: 109.1 Performed By: #### L 100.0100 ####[facility] [address] [place], [address] IG% 0.400 Normal 0.0-0.9 [facility] Comment on above: Order Comment: 109.1 Result Comment: IG% - Immature Granulocytes (promyelocytes, myelocytes andmetamyelocytes) > 1% indicates that a LEFT SHIFT is Present. Performed By: #### L 100.0100 ####[facility] [address] [place], [address] Lymphocytes/100 WBC (Bld) 23.4 % Normal 19-41 [facility] Comment on above: Order Comment: 109.1 Performed By: #### L 100.0100 ####[facility] [address] [place], [address] MCH (RBC) [Entitic mass] 30.0 pg Normal 27.0-32.0 [facility] Comment on above: Order Comment: 109.1 Performed By: #### L 100.0100 ####[facility] [address] [place], [address] MCHC (RBC) [Mass/Vol] 32.4 g/dL Normal 32-36 [facility] Comment on above: Order Comment: 109.1 Performed By: #### L 100.0100 ####[facility] [address] [place], [address] MCV (RBC) [Entitic vol] 92.4 fL Normal 80-94 [facility] Comment on above: Order Comment: 109.1 Performed By: #### L 100.0100 ####[facility] [address] [place], [address] Monocytes/100 WBC (Bld) 9.0 % Normal 0-10 [facility] Comment on above: Order Comment: 109.1 Performed By: #### L 100.0100 ####[facility] [address] [place], [address] Neutrophils/100 WBC (Bld) 66.2 % Normal 47-70 [facility] Comment on above: Order Comment: 109.1 Performed By: #### L 100.0100 ####[facility] [address] [place], [address] Nucleated RBC (Bld) [#/Vol] 0 10*3/uL Normal 0-5 [facility] Comment on above: Order Comment: 109.1 Performed By: #### L 100.0100 ####[facility] [address] [place], [address] Platelet mean volume (Bld) [Entitic vol] 10.9 fL Normal 6.2-12.0 [facility] Comment on above: Order Comment: 109.1 Performed By: #### L 100.0100 ####[facility] [address] [place], [address] Platelets (Bld) [#/Vol] 209 10*3/uL Normal 150-450 [facility] Comment on above: Order Comment: 109.1 Performed By: #### L 100.0100 ####[facility] [address] [place], [address] RBC (Bld) [#/Vol] 4.47 10*6/uL Low 4.6-6.2 [facility] Comment on above: Order Comment: 109.1 Performed By: #### L 100.0100 ####[facility] [address] [place], [address] RDW SD 43.8 fl Normal 35.1-43.9 [facility] Comment on above: Order Comment: 109.1 Performed By: #### L 100.0100 ####[facility] [address] [place], [address] WBC (Bld) [#/Vol] 8.0 10*3/uL Normal 4.4-11.0 [facility] Comment on above: Order Comment: 109.1 Performed By: #### L 100.0100 ####[facility] [address] [place], [address] CBC W/Diff, Automatedon 08-2 -2024 Absolute Lymph 1.98 X10 3/uL Normal 0.83-4.51 [facility] Comment on above: Order Comment: 109-1 Performed By: #### L 100.0100 ####[facility] [address] [place], [address] Absolute Neut 4.2 X10 3/uL Normal 2.0-7.7 [facility] Comment on above: Order Comment: 109-1 Performed By: #### L 100.0100 ####[facility] [address] [place], [address] Basophils/100 WBC (Bld) 0.6 % Normal 0-1 [facility] Comment on above: Order Comment: 109-1 Performed By: #### L 100.0100 ####[facility] [address] [place], [address] Eosinophils/100 WBC (Bld) 0.9 % Normal 0-5 [facility] Comment on above: Order Comment: 109-1 Performed By: #### L 100.0100 ####[facility] [address] [place], [address] Erythrocyte distribution width (RBC) [Ratio] 13.0 % Normal 11.6-14.6 [facility] Comment on above: Order Comment: 109-1 Performed By: #### L 100.0100 ####[facility] [address] [place], [address] Hematocrit (Bld) [Volume fraction] 39.9 % Low 40-54 [facility] Comment on above: Order Comment: 109-1 Performed By: #### L 100.0100 ####[facility] [address] [place], [address] Hemoglobin (Bld) [Mass/Vol] 13.4 g/dL Normal 13.0-16.5 [facility] Comment on above: Order Comment: 109-1 Performed By: #### L 100.0100 ####[facility] [address] [place], [address] IG% 0.300 Normal 0.0-0.9 [facility] Comment on above: Order Comment: 109-1 Result Comment: IG% - Immature Granulocytes (promyelocytes, myelocytes andmetamyelocytes) > 1% indicates that a LEFT SHIFT is Present. Performed By: #### L 100.0100 ####[facility] [address] [place], [address] Lymphocytes/100 WBC (Bld) 28.9 % Normal 19-41 [facility] Comment on above: Order Comment: 109-1 Performed By: #### L 100.0100 ####[facility] [address] [place], [address] MCH (RBC) [Entitic mass] 30.9 pg Normal 27.0-32.0 [facility] Comment on above: Order Comment: 109-1 Performed By: #### L 100.0100 ####[facility] [address] [place], [address] MCHC (RBC) [Mass/Vol] 33.6 g/dL Normal 32-36 [facility] Comment on above: Order Comment: 109-1 Performed By: #### L 100.0100 ####[facility] [address] [place], [address] MCV (RBC) [Entitic vol] 91.9 fL Normal 80-94 [facility] Comment on above: Order Comment: 109-1 Performed By: #### L 100.0100 ####[facility] [address] [place], [address] Monocytes/100 WBC (Bld) 8.0 % Normal 0-10 [facility] Comment on above: Order Comment: 109-1 Performed By: #### L 100.0100 ####[facility] [address] [place], [address] Neutrophils/100 WBC (Bld) 61.3 % Normal 47-70 [facility] Comment on above: Order Comment: 109-1 Performed By: #### L 100.0100 ####[facility] [address] [place], [address] Nucleated RBC (Bld) [#/Vol] 0 10*3/uL Normal 0-5 [facility] Comment on above: Order Comment: 109-1 Performed By: #### L 100.0100 ####[facility] [address] [place], [address] Platelet mean volume (Bld) [Entitic vol] 11.7 fL Normal 6.2-12.0 [facility] Comment on above: Order Comment: 109-1 Performed By: #### L 100.0100 ####[facility] [address] [place], [address] Platelets (Bld) [#/Vol] 201 10*3/uL Normal 150-450 [facility] Comment on above: Order Comment: 109-1 Performed By: #### L 100.0100 ####[facility] [address] [place], [address] RBC (Bld) [#/Vol] 4.34 10*6/uL Low 4.6-6.2 [facility] Comment on above: Order Comment: 109-1 Performed By: #### L 100.0100 ####[facility] [address] [place], [address] RDW SD 43.4 fl Normal 35.1-43.9 [facility] Comment on above: Order Comment: 109-1 Performed By: #### L 100.0100 ####[facility] [address] [place], [address] WBC (Bld) [#/Vol] 6.8 10*3/uL Normal 4.4-11.0 [facility] Comment on above: Order Comment: 109-1 Performed By: #### L 100.0100 ####[facility] [address] [place], [address] CBC W/Diff, Automatedon 08-05 08-2024 Absolute Lymph 2.15 X10 3/uL Normal 0.83-4.51 [facility] Comment on above: Order Comment: 109.1 Performed By: #### L 100.0100 ####[facility] [address] [place], [address] Absolute Neut 4.1 X10 3/uL Normal 2.0-7.7 [facility] Comment on above: Order Comment: 109.1 Performed By: #### L 100.0100 ####[facility] [address] [place], [address] Basophils/100 WBC (Bld) 0.7 % Normal 0-1 [facility] Comment on above: Order Comment: 109.1 Performed By: #### L 100.0100 ####[facility] [address] [place], [address] Eosinophils/100 WBC (Bld) 0.9 % Normal 0-5 [facility] Comment on above: Order Comment: 109.1 Performed By: #### L 100.0100 ####[facility] [address] [place], [address] Erythrocyte distribution width (RBC) [Ratio] 13.2 % Normal 11.6-14.6 [facility] Comment on above: Order Comment: 109.1 Performed By: #### L 100.0100 ####[facility] [address] [place], [address] Hematocrit (Bld) [Volume fraction] 38.7 % Low 40-54 [facility] Comment on above: Order Comment: 109.1 Performed By: #### L 100.0100 ####[facility] [address] [place], [address] Hemoglobin (Bld) [Mass/Vol] 12.8 g/dL Low 13.0-16.5 [facility] Comment on above: Order Comment: 109.1 Performed By: #### L 100.0100 ####[facility] [address] [place], [address] IG% 0.300 Normal 0.0-0.9 [facility] Comment on above: Order Comment: 109.1 Result Comment: IG% - Immature Granulocytes (promyelocytes, myelocytes andmetamyelocytes) > 1% indicates that a LEFT SHIFT is Present. Performed By: #### L 100.0100 ####[facility] [address] [place], [address] Lymphocytes/100 WBC (Bld) 30.7 % Normal 19-41 [facility] Comment on above: Order Comment: 109.1 Performed By: #### L 100.0100 ####[facility] [address] [place], [address] MCH (RBC) [Entitic mass] 30.3 pg Normal 27.0-32.0 [facility] Comment on above: Order Comment: 109.1 Performed By: #### L 100.0100 ####[facility] [address] [place], [address] MCHC (RBC) [Mass/Vol] 33.1 g/dL Normal 32-36 [facility] Comment on above: Order Comment: 109.1 Performed By: #### L 100.0100 ####[facility] [address] [place], [address] MCV (RBC) [Entitic vol] 91.7 fL Normal 80-94 [facility] Comment on above: Order Comment: 109.1 Performed By: #### L 100.0100 ####[facility] [address] [place], [address] Monocytes/100 WBC (Bld) 8.6 % Normal 0-10 [facility] Comment on above: Order Comment: 109.1 Performed By: #### L 100.0100 ####[facility] [address] [place], [address] Neutrophils/100 WBC (Bld) 58.8 % Normal 47-70 [facility] Comment on above: Order Comment: 109.1 Performed By: #### L 100.0100 ####[facility] [address] [place], [address] Nucleated RBC (Bld) [#/Vol] 0 10*3/uL Normal 0-5 [facility] Comment on above: Order Comment: 109.1 Performed By: #### L 100.0100 ####[facility] [address] [place], [address] Platelet mean volume (Bld) [Entitic vol] 11.3 fL Normal 6.2-12.0 [facility] Comment on above: Order Comment: 109.1 Performed By: #### L 100.0100 ####[facility] [address] [place], [address] Platelets (Bld) [#/Vol] 202 10*3/uL Normal 150-450 [facility] Comment on above: Order Comment: 109.1 Performed By: #### L 100.0100 ####[facility] [address] [place], [address] RBC (Bld) [#/Vol] 4.22 10*6/uL Low 4.6-6.2 [facility] Comment on above: Order Comment: 109.1 Performed By: #### L 100.0100 ####[facility] [address] [place], [address] RDW SD 44.4 fl High 35.1-43.9 [facility] Comment on above: Order Comment: 109.1 Performed By: #### L 100.0100 ####[facility] [address] [place], [address] WBC (Bld) [#/Vol] 7.0 10*3/uL Normal 4.4-11.0 [facility] Comment on above: Order Comment: 109.1 Performed By: #### L 100.0100 ####[facility] [address] [place], [address] CBC W/Diff, Automatedon 11-29 Absolute Lymph 2.30 X10 3/uL Normal 0.83-4.51 [facility] Comment on above: Order Comment: 109.1 Performed By: #### L 100.0100 ####[facility] [address] [place], [address] Absolute Neut 4.8 X10 3/uL Normal 2.0-7.7 [facility] Comment on above: Order Comment: 109.1 Performed By: #### L 100.0100 ####[facility] [address] [place], [address] Basophils/100 WBC (Bld) 0.5 % Normal 0-1 [facility] Comment on above: Order Comment: 109.1 Performed By: #### L 100.0100 ####[facility] [address] [place], [address] Eosinophils/100 WBC (Bld) 1.0 % Normal 0-5 [facility] Comment on above: Order Comment: 109.1 Performed By: #### L 100.0100 ####[facility] [address] [place], [address] Erythrocyte distribution width (RBC) [Ratio] 13.0 % Normal 11.6-14.6 [facility] Comment on above: Order Comment: 109.1 Performed By: #### L 100.0100 ####[facility] [address] [place], [address] Hematocrit (Bld) [Volume fraction] 40.3 % Normal 40-54 [facility] Comment on above: Order Comment: 109.1 Performed By: #### L 100.0100 ####[facility] [address] [place], [address] Hemoglobin (Bld) [Mass/Vol] 12.8 g/dL Low 13.0-16.5 [facility] Comment on above: Order Comment: 109.1 Performed By: #### L 100.0100 ####[facility] [address] [place], [address] IG% 0.400 Normal 0.0-0.9 [facility] Comment on above: Order Comment: 109.1 Result Comment: IG% - Immature Granulocytes (promyelocytes, myelocytes andmetamyelocytes) > 1% indicates that a LEFT SHIFT is Present. Performed By: #### L 100.0100 ####[facility] [address] [place], [address] Lymphocytes/100 WBC (Bld) 29.2 % Normal 19-41 [facility] Comment on above: Order Comment: 109.1 Performed By: #### L 100.0100 ####[facility] [address] [place], [address] MCH (RBC) [Entitic mass] 29.6 pg Normal 27.0-32.0 [facility] Comment on above: Order Comment: 109.1 Performed By: #### L 100.0100 ####[facility] [address] [place], [address] MCHC (RBC) [Mass/Vol] 31.8 g/dL Low 32-36 [facility] Comment on above: Order Comment: 109.1 Performed By: #### L 100.0100 ####[facility] [address] [place], [address] MCV (RBC) [Entitic vol] 93.1 fL Normal 80-94 [facility] Comment on above: Order Comment: 109.1 Performed By: #### L 100.0100 ####[facility] [address] [place], [address] Monocytes/100 WBC (Bld) 7.7 % Normal 0-10 [facility] Comment on above: Order Comment: 109.1 Performed By: #### L 100.0100 ####[facility] [address] [place], [address] Neutrophils/100 WBC (Bld) 61.2 % Normal 47-70 [facility] Comment on above: Order Comment: 109.1 Performed By: #### L 100.0100 ####[facility] [address] [place], [address] Nucleated RBC (Bld) [#/Vol] 0 10*3/uL Normal 0-5 [facility] Comment on above: Order Comment: 109.1 Performed By: #### L 100.0100 ####[facility] [address] [place], [address] Platelet mean volume (Bld) [Entitic vol] 11.5 fL Normal 6.2-12.0 [facility] Comment on above: Order Comment: 109.1 Performed By: #### L 100.0100 ####[facility] [address] [place], [address] Platelets (Bld) [#/Vol] 194 10*3/uL Normal 150-450 [facility] Comment on above: Order Comment: 109.1 Performed By: #### L 100.0100 ####[facility] [address] [place], [address] RBC (Bld) [#/Vol] 4.33 10*6/uL Low 4.6-6.2 [facility] Comment on above: Order Comment: 109.1 Performed By: #### L 100.0100 ####[facility] [address] [place], [address] RDW SD 44.3 fl High 35.1-43.9 [facility] Comment on above: Order Comment: 109.1 Performed By: #### L 100.0100 ####[facility] [address] [place], [address] WBC (Bld) [#/Vol] 7.9 10*3/uL Normal 4.4-11.0 [facility] Comment on above: Order Comment: 109.1 Performed By: #### L 100.0100 ####[facility] [address] [place], [address] CBC W/Diff, Automatedon 08-0 Absolute Lymph 2.83 X10 3/uL Normal 0.83-4.51 [facility] Comment on above: Order Comment: 109.1 Performed By: #### L 100.0100 ####[facility] [address] [place], [address] Absolute Neut 4.7 X10 3/uL Normal 2.0-7.7 [facility] Comment on above: Order Comment: 109.1 Performed By: #### L 100.0100 ####[facility] [address] [place], [address] Basophils/100 WBC (Bld) 0.8 % Normal 0-1 [facility] Comment on above: Order Comment: 109.1 Performed By: #### L 100.0100 ####[facility] [address] [place], [address] Eosinophils/100 WBC (Bld) 0.9 % Normal 0-5 [facility] Comment on above: Order Comment: 109.1 Performed By: #### L 100.0100 ####[facility] [address] [place], [address] Erythrocyte distribution width (RBC) [Ratio] 13.2 % Normal 11.6-14.6 [facility] Comment on above: Order Comment: 109.1 Performed By: #### L 100.0100 ####[facility] [address] [place], [address] Hematocrit (Bld) [Volume fraction] 41.4 % Normal 40-54 [facility] Comment on above: Order Comment: 109.1 Performed By: #### L 100.0100 ####[facility] [address] [place], [address] Hemoglobin (Bld) [Mass/Vol] 13.2 g/dL Normal 13.0-16.5 [facility] Comment on above: Order Comment: 109.1 Performed By: #### L 100.0100 ####[facility] [address] [place], [address] IG% 0.300 Normal 0.0-0.9 [facility] Comment on above: Order Comment: 109.1 Result Comment: IG% - Immature Granulocytes (promyelocytes, myelocytes andmetamyelocytes) > 1% indicates that a LEFT SHIFT is Present. Performed By: #### L 100.0100 ####[facility] [address] [place], [address] Lymphocytes/100 WBC (Bld) 31.3 % Normal 19-41 [facility] Comment on above: Order Comment: 109.1 Performed By: #### L 100.0100 ####[facility] [address] [place], [address] MCH (RBC) [Entitic mass] 30.1 pg Normal 27.0-32.0 [facility] Comment on above: Order Comment: 109.1 Performed By: #### L 100.0100 ####[facility] [address] [place], [address] MCHC (RBC) [Mass/Vol] 31.9 g/dL Low 32-36 [facility] Comment on above: Order Comment: 109.1 Performed By: #### L 100.0100 ####[facility] [address] [place], [address] MCV (RBC) [Entitic vol] 94.5 fL High 80-94 [facility] Comment on above: Order Comment: 109.1 Performed By: #### L 100.0100 ####[facility] [address] [place], [address] Monocytes/100 WBC (Bld) 14.8 % High 0-10 [facility] Comment on above: Order Comment: 109.1 Performed By: #### L 100.0100 ####[facility] [address] [place], [address] Neutrophils/100 WBC (Bld) 51.9 % Normal 47-70 [facility] Comment on above: Order Comment: 109.1 Performed By: #### L 100.0100 ####[facility] [address] [place], [address] Nucleated RBC (Bld) [#/Vol] 0 10*3/uL Normal 0-5 [facility] Comment on above: Order Comment: 109.1 Performed By: #### L 100.0100 ####[facility] [address] [place], [address] Platelet mean volume (Bld) [Entitic vol] 11.2 fL Normal 6.2-12.0 [facility] Comment on above: Order Comment: 109.1 Performed By: #### L 100.0100 ####[facility] [address] [place], [address] Platelets (Bld) [#/Vol] 182 10*3/uL Normal 150-450 [facility] Comment on above: Order Comment: 109.1 Performed By: #### L 100.0100 ####[facility] [address] [place], [address] RBC (Bld) [#/Vol] 4.38 10*6/uL Low 4.6-6.2 [facility] Comment on above: Order Comment: 109.1 Performed By: #### L 100.0100 ####[facility] [address] [place], [address] RDW SD 45.5 fl High 35.1-43.9 [facility] Comment on above: Order Comment: 109.1 Performed By: #### L 100.0100 ####[facility] [address] [place], [address] WBC (Bld) [#/Vol] 9.1 10*3/uL Normal 4.4-11.0 [facility] Comment on above: Order Comment: 109.1 Performed By: #### L 100.0100 ####[facility] [address] [place], [address] Absolute lymphocyte countOrd ered By: Renard Burgos on 11-25-2024 Lymphocytes Auto (Unsp spec) [#/Vol] 1.80 10*3/uL 0.83-4.51 [facility] Absolute neutrophil countOrd ered By: Renard Burgos on 11-25-2024 Neutrophils (Bld) [#/Vol] 7.6 10*3/uL 2.0-7.7 [facility] Automated blood erythrocyte countOrdered By: Renard Burgos on 11-25-2024 RBC (Bld) [#/Vol] 4.57 10*6/uL Low 4.6-6.2 [facility] Comment on above: Order Comment: 109-1 Performed By: #### L 100.0100 ####[facility] [address] [place], [address] Automated blood hematocrit ( percentage)Ordered By: Renard Burgos on 11-25-2024 Hematocrit (Bld) [Volume fraction] 42.1 % Normal 40-54 [facility] Comment on above: Order Comment: 109-1 Performed By: #### L 100.0100 ####[facility] [address] [place], [address] Automated lymphocyte count a s percentage of total leukocytesOrdered By: Renard Burgos on 11-25-2024 Lymphocytes/100 WBC Auto (Unsp spec) 17.3 % Low 19-41 [facility] Basophil percentageOrdered B y: Renard Burgos on 11-25-2024 Basophils/100 WBC (Bld) 0.4 % Normal 0-1 [facility] Comment on above: Order Comment: 109-1 Performed By: #### L 100.0100 ####[facility] [address] [place], [address] CBC W/Diff, Automatedon 10-30 Absolute Lymph 1.80 X10 3/uL Normal 0.83-4.51 [facility] Comment on above: Order Comment: 109-1 Performed By: #### L 100.0100 ####[facility] [address] [place], [address] Absolute Neut 7.6 X10 3/uL Normal 2.0-7.7 [facility] Comment on above: Order Comment: 109-1 Performed By: #### L 100.0100 ####[facility] [address] [place], [address] IG% 0.400 Normal 0.0-0.9 [facility] Comment on above: Order Comment: 109-1 Result Comment: IG% - Immature Granulocytes (promyelocytes, myelocytes andmetamyelocytes) > 1% indicates that a LEFT SHIFT is Present. Performed By: #### L 100.0100 ####[facility] [address] [place], [address] Lymphocytes/100 WBC (Bld) 17.3 % Low 19-41 [facility] Comment on above: Order Comment: 109-1 Performed By: #### L 100.0100 ####[facility] [address] [place], [address] Nucleated RBC (Bld) [#/Vol] 0 10*3/uL Normal 0-5 [facility] Comment on above: Order Comment: 109-1 Performed By: #### L 100.0100 ####[facility] [address] [place], [address] RDW SD 43.7 fl Normal 35.1-43.9 [facility] Comment on above: Order Comment: 109-1 Performed By: #### L 100.0100 ####[facility] [address] [place], [address] Eosinophil percentageOrdered By: Renard Burgos on 11-25-2024 Eosinophils/100 WBC (Bld) 0.6 % Normal 0-5 [facility] Comment on above: Order Comment: 109-1 Performed By: #### L 100.0100 ####[facility] [address] [place], [place], [phone](919) Erythrocyte distribution wid th ratioOrdered By: Renard Burgos on 11-25-2024 Erythrocyte distribution width (RBC) [Ratio] 12.9 % Normal 11.6-14.6 [facility] Comment on above: Order Comment: 109-1 Performed By: #### L 100.0100 ####[facility] [address] [place], [place], [phone]) Erythrocyte distribution wid th standard deviationOrdered By: Renard Burgos on 11-25-2024 Erythrocyte distribution width (RBC) [Ratio] 43.7 fl 35.1-43.9 [facility] Hemoglobin measurementOrdere d By: Renard Burgos on 11-25-2024 Hemoglobin (Bld) [Mass/Vol] 13.8 g/dL Normal 13.0-16.5 [facility] Comment on above: Order Comment: 109-1 Performed By: #### L 100.0100 ####[facility] [address] [place], [place], [phone]) Immature granulocytes/100 WB C Auto (Bld)Ordered By: Renard Burgos on 11-25-2024 Immature granulocytes/100 WBC (Bld) 0.400 % 0.0-0.9 [facility] Comment on above: IG% - Immature Granu locytes (promyelocytes, myelocytes and metamyelocytes) > 1% indicates that a LEFT SHIFT is Present. MCV (mean corpuscular volume ) determinationOrdered By: Rneard Burgos on 11-25-2024 MCV (RBC) [Entitic vol] 92.1 fL Normal 80-94 [facility] Comment on above: Order Comment: 109-1 Performed By: #### L 100.0100 ####[facility] [address] [place], [place], [phone](257) Mean corpuscular hemoglobin (MCH) determinationOrdered By: Renard Burgos on 11-25-2024 MCH (RBC) [Entitic mass] 30.2 pg Normal 27.0-32.0 [facility] Comment on above: Order Comment: 109-1 Performed By: #### L 100.0100 ####[facility] [address] [place], [address] Mean corpuscular hemoglobin concentration (MCHC) determinationOrdered By: Renard Burgos on 11-25-2024 MCHC (RBC) [Mass/Vol] 32.8 g/dL Normal 32-36 [facility] Comment on above: Order Comment: 109-1 Performed By: #### L 100.0100 ####[facility] [address] [place], [address] Mean platelet volume determi nationOrdered By: Renard Burgos on 11-25-2024 Platelet mean volume (Bld) [Entitic vol] 11.7 fL Normal 6.2-12.0 [facility] Comment on above: Order Comment: 109-1 Performed By: #### L 100.0100 ####[facility] [address] [place], [address] Monocyte percentageOrdered B y: Renard Burgos on 11-25-2024 Monocytes/100 WBC (Bld) 8.6 % Normal 0-10 [facility] Comment on above: Order Comment: 109-1 Performed By: #### L 100.0100 ####[facility] [address] [place], [address] Neutrophil percentageOrdered By: Renard Burgos on 11-25-2024 Neutrophils/100 WBC (Bld) 72.7 % High 47-70 [facility] Comment on above: Order Comment: 109-1 Performed By: #### L 100.0100 ####[facility] [address] [place], [address] Nucleated red blood cell per centageOrdered By: Renard Burgos on 11-25-2024 Nucleated RBC/100 WBC (Bld) [Ratio] 0 % 0-5 [facility] Platelet countOrdered By: Garrick Bhatt on 11-25-2024 Platelets (Bld) [#/Vol] 201 10*3/uL Normal 150-450 [facility] Comment on above: Order Comment: 109-1 Performed By: #### L 100.0100 ####[facility] [address] [place], [place], [address] White blood cell (WBC) count Ordered By: Renard Burgos on 11-25-2024 WBC (Bld) [#/Vol] 10.4 10*3/uL Normal 4.4-11.0 [facility] Comment on above: Order Comment: 109-1 Performed By: #### L 100.0100 ####[facility] [address] [place], [address] Absolute lymphocyte countOrd ered By: Renard Burgos on 11-18-2024 Lymphocytes Auto (Unsp spec) [#/Vol] 2.56 10*3/uL 0.83-4.51 [facility] Absolute neutrophil countOrd ered By: Renard Burgos on 11-18-2024 Neutrophils (Bld) [#/Vol] 6.7 10*3/uL 2.0-7.7 [facility] Automated lymphocyte count a s percentage of total leukocytesOrdered By: Renard Burgos on 11-18-2024 Lymphocytes/100 WBC Auto (Unsp spec) 24.9 % 19-41 [facility] Basophil percentageOrdered B y: Renard Burgos on 11-18-2024 Basophils/100 WBC (Bld) 0.5 % 0-1 [facility] CBC W/Diff, Automatedon 10-30 Absolute Lymph 2.56 X10 3/uL Normal 0.83-4.51 [facility] Comment on above: Order Comment: 109.1 Performed By: #### L 100.0100 ####[facility] [address] [place], [address] Absolute Neut 6.7 X10 3/uL Normal 2.0-7.7 [facility] Comment on above: Order Comment: 109.1 Performed By: #### L 100.0100 ####[facility] [address] [place], [address] Basophils/100 WBC (Bld) 0.5 % Normal 0-1 [facility] Comment on above: Order Comment: 109.1 Performed By: #### L 100.0100 ####[facility] [address] [place], [address] Eosinophils/100 WBC (Bld) 0.8 % Normal 0-5 [facility] Comment on above: Order Comment: 109.1 Performed By: #### L 100.0100 ####[facility] [address] [place], [address] Erythrocyte distribution width (RBC) [Ratio] 13.2 % Normal 11.6-14.6 [facility] Comment on above: Order Comment: 109.1 Performed By: #### L 100.0100 ####[facility] [address] [place], [address] Hematocrit (Bld) [Volume fraction] 41.6 % Normal 40-54 [facility] Comment on above: Order Comment: 109.1 Performed By: #### L 100.0100 ####[facility] [address] [place], [address] Hemoglobin (Bld) [Mass/Vol] 13.6 g/dL Normal 13.0-16.5 [facility] Comment on above: Order Comment: 109.1 Performed By: #### L 100.0100 ####[facility] [address] [place], [address] IG% 0.400 Normal 0.0-0.9 [facility] Comment on above: Order Comment: 109.1 Result Comment: IG% - Immature Granulocytes (promyelocytes, myelocytes andmetamyelocytes) > 1% indicates that a LEFT SHIFT is Present. Performed By: #### L 100.0100 ####[facility] [address] [place], [address] Lymphocytes/100 WBC (Bld) 24.9 % Normal 19-41 [facility] Comment on above: Order Comment: 109.1 Performed By: #### L 100.0100 ####[facility] [address] [place], [address] MCH (RBC) [Entitic mass] 30.3 pg Normal 27.0-32.0 [facility] Comment on above: Order Comment: 109.1 Performed By: #### L 100.0100 ####[facility] [address] [place], [address] MCHC (RBC) [Mass/Vol] 32.7 g/dL Normal 32-36 [facility] Comment on above: Order Comment: 109.1 Performed By: #### L 100.0100 ####[facility] [address] [place], [address] MCV (RBC) [Entitic vol] 92.7 fL Normal 80-94 [facility] Comment on above: Order Comment: 109.1 Performed By: #### L 100.0100 ####[facility] [address] [place], [address] Monocytes/100 WBC (Bld) 8.9 % Normal 0-10 [facility] Comment on above: Order Comment: 109.1 Performed By: #### L 100.0100 ####[facility] [address] [place], [address] Neutrophils/100 WBC (Bld) 64.5 % Normal 47-70 [facility] Comment on above: Order Comment: 109.1 Performed By: #### L 100.0100 ####[facility] [address] [place], [address] Nucleated RBC (Bld) [#/Vol] 0 10*3/uL Normal 0-5 [facility] Comment on above: Order Comment: 109.1 Performed By: #### L 100.0100 ####[facility] [address] [place], [address] Platelet mean volume (Bld) [Entitic vol] 11.0 fL Normal 6.2-12.0 [facility] Comment on above: Order Comment: 109.1 Performed By: #### L 100.0100 ####[facility] [address] [place], [address] Platelets (Bld) [#/Vol] 177 10*3/uL Normal 150-450 [facility] Comment on above: Order Comment: 109.1 Performed By: #### L 100.0100 ####[facility] [address] [place], [address] RBC (Bld) [#/Vol] 4.49 10*6/uL Low 4.6-6.2 [facility] Comment on above: Order Comment: 109.1 Performed By: #### L 100.0100 ####[facility] [address] [place], [address] RDW SD 44.9 fl High 35.1-43.9 [facility] Comment on above: Order Comment: 109.1 Performed By: #### L 100.0100 ####[facility] [address] [place], [address] WBC (Bld) [#/Vol] 10.3 10*3/uL Normal 4.4-11.0 [facility] Comment on above: Order Comment: 109.1 Performed By: #### L 100.0100 ####[facility] [address] [place], [address] Eosinophil percentageOrdered By: Renard Burgos on 11-18-2024 Eosinophils/100 WBC (Bld) 0.8 % 0-5 [facility] Erythrocyte distribution wid th ratioOrdered By: Renard Burgos on 11-18-2024 Erythrocyte distribution width (RBC) [Ratio] 13.2 % 11.6-14.6 [facility] Erythrocyte distribution wid th standard deviationOrdered By: Renard Burgos on 11-18-2024 Erythrocyte distribution width (RBC) [Ratio] 44.9 fl High 35.1-43.9 [facility] Hematocrit Auto (Bld) [Volum e fraction]Ordered By: Renard Burgos on 11-18-2024 Hematocrit (Bld) [Volume fraction] 41.6 % 40-54 [facility] Hemoglobin measurementOrdere d By: Renard Burgos on 11-18-2024 Hemoglobin (Bld) [Mass/Vol] 13.6 g/dL 13.0-16.5 [facility] Immature granulocytes/100 WB C Auto (Bld)Ordered By: Renard Burgos on 11-18-2024 Immature granulocytes/100 WBC (Bld) 0.400 % 0.0-0.9 [facility] Comment on above: IG% - Immature Granu locytes (promyelocytes, myelocytes and metamyelocytes) > 1% indicates that a LEFT SHIFT is Present. MCV (mean corpuscular volume ) determinationOrdered By: Renard Burgos on 11-18-2024 MCV (RBC) [Entitic vol] 92.7 fL 80-94 [facility] Mean corpuscular hemoglobin (MCH) determinationOrdered By: Renard Burgos on 11-18-2024 MCH (RBC) [Entitic mass] 30.3 pg 27.0-32.0 [facility] Mean corpuscular hemoglobin concentration (MCHC) determinationOrdered By: Renard Burgos on 11-18-2024 MCHC (RBC) [Mass/Vol] 32.7 g/dL 32-36 [facility] Mean platelet volume determi nationOrdered By: Renard Burgos on 11-18-2024 Platelet mean volume (Bld) [Entitic vol] 11.0 fL 6.2-12.0 [facility] Monocyte percentageOrdered B y: Renard Burgos on 11-18-2024 Monocytes/100 WBC (Bld) 8.9 % 0-10 [facility] Neutrophil percentageOrdered By: Renard Burgos on 11-18-2024 Neutrophils/100 WBC (Bld) 64.5 % 47-70 [facility] Nucleated red blood cell per centageOrdered By: Renard Burgos on 11-18-2024 Nucleated RBC/100 WBC (Bld) [Ratio] 0 % 0-5 [facility] Platelet countOrdered By: Garrick Bhatt on 11-18-2024 Platelets (Bld) [#/Vol] 177 10*3/uL 150-450 [facility] RBC Auto (Bld) [#/Vol]Ordere d By: Renard Burgos on 11-18-2024 RBC (Bld) [#/Vol] 4.49 10*6/uL Low 4.6-6.2 [facility] White blood cell (WBC) count Ordered By: Renard Burgos on 11-18-2024 WBC (Bld) [#/Vol] 10.3 10*3/uL 4.4-11.0 [facility] Basic Metabolic Profile (BMP )on 11-12-2024 BUN/CRE 18.8 RATIO Normal 10-20 [facility] Comment on above: Order Comment: ADDED BMP TO 11/11/24 LABS Performed By: #### L 100.0100, L500.2500 ####[facility] [address] [place], [address] Calcium [Mass/Vol] 8.2 mg/dL Normal 7.6-11.0 [facility] Comment on above: Order Comment: ADDED BMP TO 11/11/24 LABS Performed By: #### L 100.0100, L500.2500 ####[facility] [address] [place], [address] Chloride [Moles/Vol] 104 mmol/L Normal 98-108 [facility] Comment on above: Order Comment: ADDED BMP TO 11/11/24 LABS Performed By: #### L 100.0100, L500.2500 ####[facility] [address] [place], [address] CO2 [Moles/Vol] 24.9 mmol/L Normal 21.0-32.0 [facility] Comment on above: Order Comment: ADDED BMP TO 11/11/24 LABS Performed By: #### L 100.0100, L500.2500 ####[facility] [address] [place], [address] Creatinine [Mass/Vol] 0.58 mg/dL Low 0.70-1.20 [facility] Comment on above: Order Comment: ADDED BMP TO 11/11/24 LABS Performed By: #### L 100.0100, L500.2500 ####[facility] [address] [place], [address] GAP 11 Normal 5-15 [facility] Comment on above: Order Comment: ADDED BMP TO 11/11/24 LABS Performed By: #### L 100.0100, L500.2500 ####[facility] [address] [place], [address] GFR/1.73 sq M.predicted among non-blacks MDRD (S/P/Bld) [Vol rate/Area] 107 mL/min/{1.73_m2} Normal >60 [facility] Comment on above: Order Comment: ADDED BMP TO 11/11/24 LABS Result Comment: mL/m in/1.73m2 CKD-EPI Creatinine Equation (2020) Performed By: #### L 100.0100, L500.2500 ####[facility] [address] [place], [address] Glucose [Mass/Vol] 101 mg/dL High 70-99 [facility] Comment on above: Order Comment: ADDED BMP TO 11/11/24 LABS Performed By: #### L 100.0100, L500.2500 ####[facility] [address] [place], [address] Potassium [Moles/Vol] 3.9 mmol/L Normal 3.3-5.1 [facility] Comment on above: Order Comment: ADDED BMP TO 11/11/24 LABS Performed By: #### L 100.0100, L500.2500 ####[facility] [address] [place], [address] Sodium [Moles/Vol] 140 mmol/L Normal 133-145 [facility] Comment on above: Order Comment: ADDED BMP TO 11/11/24 LABS Performed By: #### L 100.0100, L500.2500 ####[facility] [address] [place], [address] Urea nitrogen [Mass/Vol] 11 mg/dL Normal 4- [facility] Comment on above: Order Comment: ADDED BMP TO 11/11/24 LABS Performed By: #### L 100.0100, L500.2500 ####[facility] [address] [place], [address] Absolute lymphocyte countOrd ered By: Renard Burgos on 11-11-2024 Lymphocytes Auto (Unsp spec) [#/Vol] 2.08 10*3/uL 0.83-4.51 [facility] Absolute neutrophil countOrd ered By: Renard Burgos on 11-11-2024 Neutrophils (Bld) [#/Vol] 5.2 10*3/uL 2.0-7.7 [facility] Anion gap in Serum or Plasma Ordered By: Renard Burgos on 11-11-2024 Anion gap [Moles/Vol] 11 mmol/L 5- [facility] Automated lymphocyte count a s percentage of total leukocytesOrdered By: Renard Burgos on 11-11-2024 Lymphocytes/100 WBC Auto (Unsp spec) 25.7 % - [facility] BUN/creatinine ratioOrdered By: Renard Burgos on 11-11-2024 Urea nitrogen/Creatinine [Mass ratio] 18.8 mg/mg 10- [facility] Basophil percentageOrdered B y: Renard Burgos on 11-11-2024 Basophils/100 WBC (Bld) 0.6 % 0-1 [facility] CBC W/Diff, Automatedon 10-29 Absolute Lymph 2.08 X10 3/uL Normal 0.83-4.51 [facility] Comment on above: Order Comment: 109.1 Performed By: #### L 100.0100, L500.2500 ####[facility] [address] [place], [address] Absolute Neut 5.2 X10 3/uL Normal 2.0-7.7 [facility] Comment on above: Order Comment: 109.1 Performed By: #### L 100.0100, L500.2500 ####[facility] [address] [place], [address] Basophils/100 WBC (Bld) 0.6 % Normal 0-1 [facility] Comment on above: Order Comment: 109.1 Performed By: #### L 100.0100, L500.2500 ####[facility] [address] [place], [address] Eosinophils/100 WBC (Bld) 1.0 % Normal 0-5 [facility] Comment on above: Order Comment: 109.1 Performed By: #### L 100.0100, L500.2500 ####[facility] [address] [place], [address] Erythrocyte distribution width (RBC) [Ratio] 13.2 % Normal 11.6-14.6 [facility] Comment on above: Order Comment: 109.1 Performed By: #### L 100.0100, L500.2500 ####[facility] [address] [place], [address] Hematocrit (Bld) [Volume fraction] 38.6 % Low 40-54 [facility] Comment on above: Order Comment: 109.1 Performed By: #### L 100.0100, L500.2500 ####[facility] [address] [place], [address] Hemoglobin (Bld) [Mass/Vol] 12.6 g/dL Low 13.0-16.5 [facility] Comment on above: Order Comment: 109.1 Performed By: #### L 100.0100, L500.2500 ####[facility] [address] [place], [address] IG% 0.400 Normal 0.0-0.9 [facility] Comment on above: Order Comment: 109.1 Result Comment: IG% - Immature Granulocytes (promyelocytes, myelocytes andmetamyelocytes) > 1% indicates that a LEFT SHIFT is Present. Performed By: #### L 100.0100, L500.2500 ####[facility] [address] [place], [address] Lymphocytes/100 WBC (Bld) 25.7 % Normal 19-41 [facility] Comment on above: Order Comment: 109.1 Performed By: #### L 100.0100, L500.2500 ####[facility] [address] [place], [address] MCH (RBC) [Entitic mass] 29.9 pg Normal 27.0-32.0 [facility] Comment on above: Order Comment: 109.1 Performed By: #### L 100.0100, L500.2500 ####[facility] [address] [place], [address] MCHC (RBC) [Mass/Vol] 32.6 g/dL Normal 32-36 [facility] Comment on above: Order Comment: 109.1 Performed By: #### L 100.0100, L500.2500 ####[facility] [address] [place], [address] MCV (RBC) [Entitic vol] 91.7 fL Normal 80-94 [facility] Comment on above: Order Comment: 109.1 Performed By: #### L 100.0100, L500.2500 ####[facility] [address] [place], [address] Monocytes/100 WBC (Bld) 8.3 % Normal 0-10 [facility] Comment on above: Order Comment: 109.1 Performed By: #### L 100.0100, L500.2500 ####[facility] [address] [place], [address] Neutrophils/100 WBC (Bld) 64.0 % Normal 47-70 [facility] Comment on above: Order Comment: 109.1 Performed By: #### L 100.0100, L500.2500 ####[facility] [address] [place], [address] Nucleated RBC (Bld) [#/Vol] 0 10*3/uL Normal 0-5 [facility] Comment on above: Order Comment: 109.1 Performed By: #### L 100.0100, L500.2500 ####[facility] [address] [place], [address] Platelet mean volume (Bld) [Entitic vol] 11.4 fL Normal 6.2-12.0 [facility] Comment on above: Order Comment: 109.1 Performed By: #### L 100.0100, L500.2500 ####[facility] [address] [place], [address] Platelets (Bld) [#/Vol] 220 10*3/uL Normal 150-450 [facility] Comment on above: Order Comment: 109.1 Performed By: #### L 100.0100, L500.2500 ####[facility] [address] [place], [address] RBC (Bld) [#/Vol] 4.21 10*6/uL Low 4.6-6.2 [facility] Comment on above: Order Comment: 109.1 Performed By: #### L 100.0100, L500.2500 ####[facility] [address] [place], [address] RDW SD 44.4 fl High 35.1-43.9 [facility] Comment on above: Order Comment: 109.1 Performed By: #### L 100.0100, L500.2500 ####[facility] [address] [place], [address] WBC (Bld) [#/Vol] 8.1 10*3/uL Normal 4.4-11.0 [facility] Comment on above: Order Comment: 109.1 Performed By: #### L 100.0100, L500.2500 ####[facility] [address] [place], [address] Carbon dioxide, total [Moles /volume] in Central venous bloodOrdered By: Renard Burgos on 11-11-2024 CO2 [Moles/Vol] 24.9 mmol/L 21.0-32.0 [facility] Chloride assayOrdered By: Garrick Bhatt on 11-11-2024 Chloride [Moles/Vol] 104 mmol/L 98-108 [facility] Eosinophil percentageOrdered By: Renard Burgos on 11-11-2024 Eosinophils/100 WBC (Bld) 1.0 % 0-5 [facility] Erythrocyte distribution wid th ratioOrdered By: Renard Burgos on 11-11-2024 Erythrocyte distribution width (RBC) [Ratio] 13.2 % 11.6-14.6 [facility] Erythrocyte distribution wid th standard deviationOrdered By: Renard Burgos on 11-11-2024 Erythrocyte distribution width (RBC) [Ratio] 44.4 fl High 35.1-43.9 [facility] Glomerular filtration rate ( GFR) estimation/1.73 sq m using serum, plasma, or whole bOrdered By: Renard Burgos on 11-11-2024 GFR/1.73 sq M.predicted among non-blacks MDRD (S/P/Bld) [Vol rate/Area] 107 mL/min/{1.73_m2} >60 [facility] Comment on above: mL/min/1.73m2 CKD-EP I Creatinine Equation (2020) Hematocrit Auto (Bld) [Volum e fraction]Ordered By: Renard Burgos on 11-11-2024 Hematocrit (Bld) [Volume fraction] 38.6 % Low 40-54 [facility] Hemoglobin measurementOrdere d By: Renard Burgos on 11-11-2024 Hemoglobin (Bld) [Mass/Vol] 12.6 g/dL Low 13.0-16.5 [facility] Immature granulocytes/100 WB C Auto (Bld)Ordered By: Reanrd Burgos on 11-11-2024 Immature granulocytes/100 WBC (Bld) 0.400 % 0.0-0.9 [facility] Comment on above: IG% - Immature Granu locytes (promyelocytes, myelocytes and metamyelocytes) > 1% indicates that a LEFT SHIFT is Present. MCV (mean corpuscular volume ) determinationOrdered By: Renard Burgos on 11-11-2024 MCV (RBC) [Entitic vol] 91.7 fL 80-94 [facility] Mean corpuscular hemoglobin (MCH) determinationOrdered By: Renard Burgos on 11-11-2024 MCH (RBC) [Entitic mass] 29.9 pg 27.0-32.0 [facility] Mean corpuscular hemoglobin concentration (MCHC) determinationOrdered By: Renard Burgos on 11-11-2024 MCHC (RBC) [Mass/Vol] 32.6 g/dL 32-36 [facility] Mean platelet volume determi nationOrdered By: Renard Burgos on 11-11-2024 Platelet mean volume (Bld) [Entitic vol] 11.4 fL 6.2-12.0 [facility] Monocyte percentageOrdered B y: Renard Burgos on 11-11-2024 Monocytes/100 WBC (Bld) 8.3 % 0-10 [facility] Neutrophil percentageOrdered By: Renard Burgos on 11-11-2024 Neutrophils/100 WBC (Bld) 64.0 % 47-70 [facility] Nucleated red blood cell per centageOrdered By: Renard Burgos on 11-11-2024 Nucleated RBC/100 WBC (Bld) [Ratio] 0 % 0-5 [facility] Platelet countOrdered By: Garrick Bhatt on 11-11-2024 Platelets (Bld) [#/Vol] 220 10*3/uL 150-450 [facility] Potassium measurement (mass/ volume)Ordered By: Renard Burgos on 11-11-2024 Potassium (Unsp spec) [Mass/Vol] 3.9 mmol/L 3.3-5.1 [facility] RBC Auto (Bld) [#/Vol]Ordere d By: Renard Burgos on 11-11-2024 RBC (Bld) [#/Vol] 4.21 10*6/uL Low 4.6-6.2 [facility] Serum creatinine measurement (mass/volume)Ordered By: Renard Burgos on 11-11-2024 Creatinine [Mass/Vol] 0.58 mg/dL Low 0.70-1.20 [facility] Serum glucose measurement (m ass/volume)Ordered By: Renard Burgos on 11-11-2024 Glucose [Mass/Vol] 101 mg/dL High 70-99 [facility] Serum or plasma calcium gordy urement (mass/volume)Ordered By: Renard Burgos on 11-11-2024 Calcium [Mass/Vol] 8.2 mg/dL 7.6-11.0 [facility] Serum or plasma urea nitroge n measurement (mass/volume)Ordered By: Renard Burgos on 11-11-2024 Urea nitrogen [Mass/Vol] 11 mg/dL 4-19 [facility] Sodium levelOrdered By: Lamine Burgos on 11-11-2024 Sodium [Moles/Vol] 140 mmol/L 133-145 [facility] White blood cell (WBC) count Ordered By: Renard Burgos on 11-11-2024 WBC (Bld) [#/Vol] 8.1 10*3/uL 4.4-11.0 [facility] Absolute lymphocyte countOrd ered By: Renard Burgos on 11-04-2024 Lymphocytes Auto (Unsp spec) [#/Vol] 2.18 10*3/uL 0.83-4.51 [facility] Absolute neutrophil countOrd ered By: Renard Burgos on 11-04-2024 Neutrophils (Bld) [#/Vol] 4.8 10*3/uL 2.0-7.7 [facility] Automated lymphocyte count a s percentage of total leukocytesOrdered By: Renard Burgos on 11-04-2024 Lymphocytes/100 WBC Auto (Unsp spec) 28.1 % 19-41 [facility] Basophil percentageOrdered B y: Renard Burgos on 11-04-2024 Basophils/100 WBC (Bld) 0.6 % 0-1 [facility] CBC W/Diff, Automatedon 07-0 PLT EST A Normal ADEQ [facility] Comment on above: Order Comment: 109 Performed By: #### L 100.0100 ####[facility] [address] [place], [place], [address] PLT MORPH CLUMPED Normal [facility] Comment on above: Order Comment: 109 Performed By: #### L 100.0100 ####[facility] [address] [place], [place], [address] Eosinophil percentageOrdered By: Renard Burgos on 11-04-2024 Eosinophils/100 WBC (Bld) 0.8 % 0-5 [facility] Erythrocyte distribution wid th ratioOrdered By: Renard Burgos on 11-04-2024 Erythrocyte distribution width (RBC) [Ratio] 13.3 % 11.6-14.6 [facility] Erythrocyte distribution wid th standard deviationOrdered By: Renard Burgos on 11-04-2024 Erythrocyte distribution width (RBC) [Ratio] 45.0 fl High 35.1-43.9 [facility] Hematocrit Auto (Bld) [Volum e fraction]Ordered By: Renard Burgos on 11-04-2024 Hematocrit (Bld) [Volume fraction] 42.8 % 40-54 [facility] Hemoglobin measurementOrdere d By: Renard Burgos on 11-04-2024 Hemoglobin (Bld) [Mass/Vol] 14.0 g/dL 13.0-16.5 [facility] Immature granulocytes/100 WB C Auto (Bld)Ordered By: Renard Burgos on 11-04-2024 Immature granulocytes/100 WBC (Bld) 0.400 % 0.0-0.9 [facility] Comment on above: IG% - Immature Granu locytes (promyelocytes, myelocytes and metamyelocytes) > 1% indicates that a LEFT SHIFT is Present. MCV (mean corpuscular volume ) determinationOrdered By: Renard Burgos on 11-04-2024 MCV (RBC) [Entitic vol] 92.4 fL 80-94 [facility] Mean corpuscular hemoglobin (MCH) determinationOrdered By: Renard Burgos on 11-04-2024 MCH (RBC) [Entitic mass] 30.2 pg 27.0-32.0 [facility] Mean corpuscular hemoglobin concentration (MCHC) determinationOrdered By: Renard Burgos on 11-04-2024 MCHC (RBC) [Mass/Vol] 32.7 g/dL 32-36 [facility] Mean platelet volume determi nationOrdered By: Renard Burgos on 11-04-2024 Platelet mean volume (Bld) [Entitic vol] 11.6 fL 6.2-12.0 [facility] Monocyte percentageOrdered B y: Renard Burgos on 11-04-2024 Monocytes/100 WBC (Bld) 8.4 % 0-10 [facility] Neutrophil percentageOrdered By: Renard Burgos on 11-04-2024 Neutrophils/100 WBC (Bld) 61.7 % 47-70 [facility] Nucleated red blood cell per centageOrdered By: Renard Burgos on 11-04-2024 Nucleated RBC/100 WBC (Bld) [Ratio] 0 % 0-5 [facility] Platelet countOrdered By: Garrick Bhatt on 11-04-2024 Platelet count TNP [facility] Comment on above: Test not performed Platelet estimateOrdered By: Renard Burgos on 11-04-2024 Platelets LM Ql (Bld) A ADEQ [facility] Platelet morphologyOrdered B y: Renard Burgos on 11-04-2024 Platelet morphology finding Nom (Bld) CLUMPED [facility] RBC Auto (Bld) [#/Vol]Ordere d By: Renard Burgos on 11-04-2024 RBC (Bld) [#/Vol] 4.63 10*6/uL 4.6-6.2 [facility] White blood cell (WBC) count Ordered By: Renard Burgos on 11-04-2024 WBC (Bld) [#/Vol] 7.8 10*3/uL 4.4-11.0 [facility] Absolute lymphocyte countOrd ered By: Renard Burgos on 10-28-2024 Lymphocytes Auto (Unsp spec) [#/Vol] 1.72 10*3/uL 0.83-4.51 [facility] Absolute neutrophil countOrd ered By: Renard Burgos on 10-28-2024 Neutrophils (Bld) [#/Vol] 5.0 10*3/uL 2.0-7.7 [facility] Automated lymphocyte count a s percentage of total leukocytesOrdered By: Renard Burgos on 10-28-2024 Lymphocytes/100 WBC Auto (Unsp spec) 22.9 % 19-41 [facility] Basophil percentageOrdered B y: Renard Burgos on 10-28-2024 Basophils/100 WBC (Bld) 0.7 % 0-1 [facility] CBC W/Diff, Automatedon 10-01 Absolute Lymph 1.72 X10 3/uL Normal 0.83-4.51 [facility] Comment on above: Order Comment: 109-1 Performed By: #### L 100.0100 ####[facility] [address] [place], [address] Absolute Neut 5.0 X10 3/uL Normal 2.0-7.7 [facility] Comment on above: Order Comment: 109-1 Performed By: #### L 100.0100 ####[facility] [address] [place], [address] Basophils/100 WBC (Bld) 0.7 % Normal 0-1 [facility] Comment on above: Order Comment: 109-1 Performed By: #### L 100.0100 ####[facility] [address] [place], [address] Eosinophils/100 WBC (Bld) 1.2 % Normal 0-5 [facility] Comment on above: Order Comment: 109-1 Performed By: #### L 100.0100 ####[facility] [address] [place], [address] Erythrocyte distribution width (RBC) [Ratio] 13.2 % Normal 11.6-14.6 [facility] Comment on above: Order Comment: 109-1 Performed By: #### L 100.0100 ####[facility] [address] [place], [address] Hematocrit (Bld) [Volume fraction] 37.3 % Low 40-54 [facility] Comment on above: Order Comment: 109-1 Performed By: #### L 100.0100 ####[facility] [address] [place], [address] Hemoglobin (Bld) [Mass/Vol] 12.3 g/dL Low 13.0-16.5 [facility] Comment on above: Order Comment: 109-1 Performed By: #### L 100.0100 ####[facility] [address] [place], [address] IG% 0.100 Normal 0.0-0.9 [facility] Comment on above: Order Comment: 109-1 Result Comment: IG% - Immature Granulocytes (promyelocytes, myelocytes andmetamyelocytes) > 1% indicates that a LEFT SHIFT is Present. Performed By: #### L 100.0100 ####[facility] [address] [place], [address] Lymphocytes/100 WBC (Bld) 22.9 % Normal 19-41 [facility] Comment on above: Order Comment: 109-1 Performed By: #### L 100.0100 ####[facility] [address] [place], [address] MCH (RBC) [Entitic mass] 30.1 pg Normal 27.0-32.0 [facility] Comment on above: Order Comment: 109-1 Performed By: #### L 100.0100 ####[facility] [address] [place], [address] MCHC (RBC) [Mass/Vol] 33.0 g/dL Normal 32-36 [facility] Comment on above: Order Comment: 109-1 Performed By: #### L 100.0100 ####[facility] [address] [place], [address] MCV (RBC) [Entitic vol] 91.4 fL Normal 80-94 [facility] Comment on above: Order Comment: 109-1 Performed By: #### L 100.0100 ####[facility] [address] [place], [address] Monocytes/100 WBC (Bld) 8.1 % Normal 0-10 [facility] Comment on above: Order Comment: 109-1 Performed By: #### L 100.0100 ####[facility] [address] [place], [address] Neutrophils/100 WBC (Bld) 67.0 % Normal 47-70 [facility] Comment on above: Order Comment: 109-1 Performed By: #### L 100.0100 ####[facility] [address] [place], [address] Nucleated RBC (Bld) [#/Vol] 0 10*3/uL Normal 0-5 [facility] Comment on above: Order Comment: 109-1 Performed By: #### L 100.0100 ####[facility] [address] [place], [address] Platelet mean volume (Bld) [Entitic vol] 11.3 fL Normal 6.2-12.0 [facility] Comment on above: Order Comment: 109-1 Performed By: #### L 100.0100 ####[facility] [address] [place], [address] Platelets (Bld) [#/Vol] 201 10*3/uL Normal 150-450 [facility] Comment on above: Order Comment: 109-1 Performed By: #### L 100.0100 ####[facility] [address] [place], [address] RBC (Bld) [#/Vol] 4.08 10*6/uL Low 4.6-6.2 [facility] Comment on above: Order Comment: 109-1 Performed By: #### L 100.0100 ####[facility] [address] [place], [address] RDW SD 44.0 fl High 35.1-43.9 [facility] Comment on above: Order Comment: 109-1 Performed By: #### L 100.0100 ####[facility] [address] [place], [address] WBC (Bld) [#/Vol] 7.5 10*3/uL Normal 4.4-11.0 [facility] Comment on above: Order Comment: 109-1 Performed By: #### L 100.0100 ####[facility] [address] [place], [address] Eosinophil percentageOrdered By: Renard Burgos on 10-28-2024 Eosinophils/100 WBC (Bld) 1.2 % 0-5 [facility] Erythrocyte distribution wid th ratioOrdered By: Renard Burgos on 10-28-2024 Erythrocyte distribution width (RBC) [Ratio] 13.2 % 11.6-14.6 [facility] Erythrocyte distribution wid th standard deviationOrdered By: Renard Burgos on 10-28-2024 Erythrocyte distribution width (RBC) [Ratio] 44.0 fl High 35.1-43.9 [facility] Hematocrit Auto (Bld) [Volum e fraction]Ordered By: Renard Burgos on 10-28-2024 Hematocrit (Bld) [Volume fraction] 37.3 % Low 40-54 [facility] Hemoglobin measurementOrdere d By: Renard Burgos on 10-28-2024 Hemoglobin (Bld) [Mass/Vol] 12.3 g/dL Low 13.0-16.5 [facility] Immature granulocytes/100 WB C Auto (Bld)Ordered By: Renard Burgos on 10-28-2024 Immature granulocytes/100 WBC (Bld) 0.100 % 0.0-0.9 [facility] Comment on above: IG% - Immature Granu locytes (promyelocytes, myelocytes and metamyelocytes) > 1% indicates that a LEFT SHIFT is Present. MCV (mean corpuscular volume ) determinationOrdered By: Renard Burgos on 10-28-2024 MCV (RBC) [Entitic vol] 91.4 fL 80-94 [facility] Mean corpuscular hemoglobin (MCH) determinationOrdered By: Renard Burgos on 10-28-2024 MCH (RBC) [Entitic mass] 30.1 pg 27.0-32.0 [facility] Mean corpuscular hemoglobin concentration (MCHC) determinationOrdered By: Renard Burgos on 10-28-2024 MCHC (RBC) [Mass/Vol] 33.0 g/dL 32-36 [facility] Mean platelet volume determi nationOrdered By: Renard Burgos on 10-28-2024 Platelet mean volume (Bld) [Entitic vol] 11.3 fL 6.2-12.0 [facility] Monocyte percentageOrdered B y: Renard Burgos on 10-28-2024 Monocytes/100 WBC (Bld) 8.1 % 0-10 [facility] Neutrophil percentageOrdered By: Renard Burgos on 10-28-2024 Neutrophils/100 WBC (Bld) 67.0 % 47-70 [facility] Nucleated red blood cell per centageOrdered By: Renard Burgos on 10-28-2024 Nucleated RBC/100 WBC (Bld) [Ratio] 0 % 0-5 [facility] Platelet countOrdered By: Garrick Bhatt on 10-28-2024 Platelets (Bld) [#/Vol] 201 10*3/uL 150-450 [facility] RBC Auto (Bld) [#/Vol]Ordere d By: Renard Burgos on 10-28-2024 RBC (Bld) [#/Vol] 4.08 10*6/uL Low 4.6-6.2 [facility] White blood cell (WBC) count Ordered By: Renard Burgos on 10-28-2024 WBC (Bld) [#/Vol] 7.5 10*3/uL 4.4-11.0 [facility] Absolute lymphocyte countOrd ered By: Renard Hensleyrustam on 10-21-2024 Lymphocytes Auto (Unsp spec) [#/Vol] 2.41 10*3/uL 0.83-4.51 [facility] Absolute neutrophil countOrd ered By: Renard Loretta on 10-21-2024 Neutrophils (Bld) [#/Vol] 5.2 10*3/uL 2.0-7.7 [facility] Automated lymphocyte count a s percentage of total leukocytesOrdered By: Renard Burgos on 10-21-2024 Lymphocytes/100 WBC Auto (Unsp spec) 28.2 % 19- [facility] Basophil percentageOrdered B y: Renard Burgos on 10-21-2024 Basophils/100 WBC (Bld) 0.6 % 0-1 [facility] CBC W/Diff, Automatedon 09-30 Absolute Lymph 2.41 X10 3/uL Normal 0.83-4.51 [facility] Comment on above: Order Comment: 109 Performed By: #### L 100.0100 ####[facility] [address] [place], [address] Absolute Neut 5.2 X10 3/uL Normal 2.0-7.7 [facility] Comment on above: Order Comment: 109 Performed By: #### L 100.0100 ####[facility] [address] [place], [address] Basophils/100 WBC (Bld) 0.6 % Normal 0-1 [facility] Comment on above: Order Comment: 109 Performed By: #### L 100.0100 ####[facility] [address] [place], [address] Eosinophils/100 WBC (Bld) 0.8 % Normal 0-5 [facility] Comment on above: Order Comment: 109 Performed By: #### L 100.0100 ####[facility] [address] [place], [address] Erythrocyte distribution width (RBC) [Ratio] 13.3 % Normal 11.6-14.6 [facility] Comment on above: Order Comment: 109 Performed By: #### L 100.0100 ####[facility] [address] [place], [address] Hematocrit (Bld) [Volume fraction] 38.9 % Low 40-54 [facility] Comment on above: Order Comment: 109 Performed By: #### L 100.0100 ####[facility] [address] [place], [address] Hemoglobin (Bld) [Mass/Vol] 12.8 g/dL Low 13.0-16.5 [facility] Comment on above: Order Comment: 109 Performed By: #### L 100.0100 ####[facility] [address] [place], [address] IG% 0.400 Normal 0.0-0.9 [facility] Comment on above: Order Comment: 109 Result Comment: IG% - Immature Granulocytes (promyelocytes, myelocytes andmetamyelocytes) > 1% indicates that a LEFT SHIFT is Present. Performed By: #### L 100.0100 ####[facility] [address] [place], [address] Lymphocytes/100 WBC (Bld) 28.2 % Normal 19-41 [facility] Comment on above: Order Comment: 109 Performed By: #### L 100.0100 ####[facility] [address] [place], [address] MCH (RBC) [Entitic mass] 30.1 pg Normal 27.0-32.0 [facility] Comment on above: Order Comment: 109 Performed By: #### L 100.0100 ####[facility] [address] [place], [address] MCHC (RBC) [Mass/Vol] 32.9 g/dL Normal 32-36 [facility] Comment on above: Order Comment: 109 Performed By: #### L 100.0100 ####[facility] [address] [place], [address] MCV (RBC) [Entitic vol] 91.5 fL Normal 80-94 [facility] Comment on above: Order Comment: 109 Performed By: #### L 100.0100 ####[facility] [address] [place], [address] Monocytes/100 WBC (Bld) 9.1 % Normal 0-10 [facility] Comment on above: Order Comment: 109 Performed By: #### L 100.0100 ####[facility] [address] [place], [address] Neutrophils/100 WBC (Bld) 60.9 % Normal 47-70 [facility] Comment on above: Order Comment: 109 Performed By: #### L 100.0100 ####[facility] [address] [place], [address] Nucleated RBC (Bld) [#/Vol] 0 10*3/uL Normal 0-5 [facility] Comment on above: Order Comment: 109 Performed By: #### L 100.0100 ####[facility] [address] [place], [address] Platelet mean volume (Bld) [Entitic vol] 11.2 fL Normal 6.2-12.0 [facility] Comment on above: Order Comment: 109 Performed By: #### L 100.0100 ####[facility] [address] [place], [address] Platelets (Bld) [#/Vol] 204 10*3/uL Normal 150-450 [facility] Comment on above: Order Comment: 109 Performed By: #### L 100.0100 ####[facility] [address] [place], [address] RBC (Bld) [#/Vol] 4.25 10*6/uL Low 4.6-6.2 [facility] Comment on above: Order Comment: 109 Performed By: #### L 100.0100 ####[facility] [address] [place], [address] RDW SD 44.5 fl High 35.1-43.9 [facility] Comment on above: Order Comment: 109 Performed By: #### L 100.0100 ####[facility] [address] [place], [address] WBC (Bld) [#/Vol] 8.5 10*3/uL Normal 4.4-11.0 [facility] Comment on above: Order Comment: 109 Performed By: #### L 100.0100 ####[facility] [address] [place], [address] Eosinophil percentageOrdered By: Renard Burgos on 10-21-2024 Eosinophils/100 WBC (Bld) 0.8 % 0-5 [facility] Erythrocyte distribution wid th ratioOrdered By: Renard Burgos on 10-21-2024 Erythrocyte distribution width (RBC) [Ratio] 13.3 % 11.6-14.6 [facility] Erythrocyte distribution wid th standard deviationOrdered By: Renard Burgos on 10-21-2024 Erythrocyte distribution width (RBC) [Ratio] 44.5 fl High 35.1-43.9 [facility] Hematocrit Auto (Bld) [Volum e fraction]Ordered By: Renard Burgos on 10-21-2024 Hematocrit (Bld) [Volume fraction] 38.9 % Low 40-54 [facility] Hemoglobin measurementOrdere d By: Renard Burgos on 10-21-2024 Hemoglobin (Bld) [Mass/Vol] 12.8 g/dL Low 13.0-16.5 [facility] Immature granulocytes/100 WB C Auto (Bld)Ordered By: Renard Burgos on 10-21-2024 Immature granulocytes/100 WBC (Bld) 0.400 % 0.0-0.9 [facility] Comment on above: IG% - Immature Granu locytes (promyelocytes, myelocytes and metamyelocytes) > 1% indicates that a LEFT SHIFT is Present. MCV (mean corpuscular volume ) determinationOrdered By: Renard Burgos on 10-21-2024 MCV (RBC) [Entitic vol] 91.5 fL 80-94 [facility] Mean corpuscular hemoglobin (MCH) determinationOrdered By: Renard Burgos on 10-21-2024 MCH (RBC) [Entitic mass] 30.1 pg 27.0-32.0 [facility] Mean corpuscular hemoglobin concentration (MCHC) determinationOrdered By: Renard Burgos on 10-21-2024 MCHC (RBC) [Mass/Vol] 32.9 g/dL 32-36 [facility] Mean platelet volume determi nationOrdered By: Renard Burgos on 10-21-2024 Platelet mean volume (Bld) [Entitic vol] 11.2 fL 6.2-12.0 [facility] Monocyte percentageOrdered B y: Renard Burgos on 10-21-2024 Monocytes/100 WBC (Bld) 9.1 % 0-10 [facility] Neutrophil percentageOrdered By: Renard Burgos on 10-21-2024 Neutrophils/100 WBC (Bld) 60.9 % 47-70 [facility] Nucleated red blood cell per centageOrdered By: Renard Burgos on 10-21-2024 Nucleated RBC/100 WBC (Bld) [Ratio] 0 % 0-5 [facility] Platelet countOrdered By: Garrick Bhatt on 10-21-2024 Platelets (Bld) [#/Vol] 204 10*3/uL 150-450 [facility] RBC Auto (Bld) [#/Vol]Ordere d By: Renard Burgos on 10-21-2024 RBC (Bld) [#/Vol] 4.25 10*6/uL Low 4.6-6.2 [facility] White blood cell (WBC) count Ordered By: Renard Burgos on 10-21-2024 WBC (Bld) [#/Vol] 8.5 10*3/uL 4.4-11.0 [facility] Absolute lymphocyte countOrd ered By: Renard Burgos on 06-16-2025 Lymphocytes Auto (Unsp spec) [#/Vol] 1.77 10*3/uL 0.83-4.51 [facility] Absolute neutrophil countOrd ered By: Renard Amezquitahola on 10-14-2024 Neutrophils (Bld) [#/Vol] 4.8 10*3/uL 2.0-7.7 [facility] Automated lymphocyte count a s percentage of total leukocytesOrdered By: Renard Burgos on 10-14-2024 Lymphocytes/100 WBC Auto (Unsp spec) 24.2 % 19-41 [facility] Basophil percentageOrdered B y: Renard Burgos on 10-14-2024 Basophils/100 WBC (Bld) 0.7 % 0-1 [facility] CBC W/Diff, Automatedon 09-29 Absolute Lymph 1.77 X10 3/uL Normal 0.83-4.51 [facility] Comment on above: Order Comment: 109 Performed By: #### L 100.0100 ####[facility] [address] [place], [address] Absolute Neut 4.8 X10 3/uL Normal 2.0-7.7 [facility] Comment on above: Order Comment: 109 Performed By: #### L 100.0100 ####[facility] [address] [place], [address] Basophils/100 WBC (Bld) 0.7 % Normal 0-1 [facility] Comment on above: Order Comment: 109 Performed By: #### L 100.0100 ####[facility] [address] [place], [address] Eosinophils/100 WBC (Bld) 0.8 % Normal 0-5 [facility] Comment on above: Order Comment: 109 Performed By: #### L 100.0100 ####[facility] [address] [place], [address] Erythrocyte distribution width (RBC) [Ratio] 13.2 % Normal 11.6-14.6 [facility] Comment on above: Order Comment: 109 Performed By: #### L 100.0100 ####[facility] [address] [place], [address] Hematocrit (Bld) [Volume fraction] 42.7 % Normal 40-54 [facility] Comment on above: Order Comment: 109 Performed By: #### L 100.0100 ####[facility] [address] [place], [address] Hemoglobin (Bld) [Mass/Vol] 13.9 g/dL Normal 13.0-16.5 [facility] Comment on above: Order Comment: 109 Performed By: #### L 100.0100 ####[facility] [address] [place], [address] IG% 0.300 Normal 0.0-0.9 [facility] Comment on above: Order Comment: 109 Result Comment: IG% - Immature Granulocytes (promyelocytes, myelocytes andmetamyelocytes) > 1% indicates that a LEFT SHIFT is Present. Performed By: #### L 100.0100 ####[facility] [address] [place], [address] Lymphocytes/100 WBC (Bld) 24.2 % Normal 19-41 [facility] Comment on above: Order Comment: 109 Performed By: #### L 100.0100 ####[facility] [address] [place], [address] MCH (RBC) [Entitic mass] 29.7 pg Normal 27.0-32.0 [facility] Comment on above: Order Comment: 109 Performed By: #### L 100.0100 ####[facility] [address] [place], [address] MCHC (RBC) [Mass/Vol] 32.6 g/dL Normal 32-36 [facility] Comment on above: Order Comment: 109 Performed By: #### L 100.0100 ####[facility] [address] [place], [address] MCV (RBC) [Entitic vol] 91.2 fL Normal 80-94 [facility] Comment on above: Order Comment: 109 Performed By: #### L 100.0100 ####[facility] [address] [place], [address] Monocytes/100 WBC (Bld) 8.6 % Normal 0-10 [facility] Comment on above: Order Comment: 109 Performed By: #### L 100.0100 ####[facility] [address] [place], [address] Neutrophils/100 WBC (Bld) 65.4 % Normal 47-70 [facility] Comment on above: Order Comment: 109 Performed By: #### L 100.0100 ####[facility] [address] [place], [address] Nucleated RBC (Bld) [#/Vol] 0 10*3/uL Normal 0-5 [facility] Comment on above: Order Comment: 109 Performed By: #### L 100.0100 ####[facility] [address] [place], [address] Platelet mean volume (Bld) [Entitic vol] 11.1 fL Normal 6.2-12.0 [facility] Comment on above: Order Comment: 109 Performed By: #### L 100.0100 ####[facility] [address] [place], [address] Platelets (Bld) [#/Vol] 232 10*3/uL Normal 150-450 [facility] Comment on above: Order Comment: 109 Performed By: #### L 100.0100 ####[facility] [address] [place], [address] RBC (Bld) [#/Vol] 4.68 10*6/uL Normal 4.6-6.2 [facility] Comment on above: Order Comment: 109 Performed By: #### L 100.0100 ####[facility] [address] [place], [address] RDW SD 44.1 fl High 35.1-43.9 [facility] Comment on above: Order Comment: 109 Performed By: #### L 100.0100 ####[facility] [address] [place], [address] WBC (Bld) [#/Vol] 7.3 10*3/uL Normal 4.4-11.0 [facility] Comment on above: Order Comment: 109 Performed By: #### L 100.0100 ####[facility] [address] [place], [address] Eosinophil percentageOrdered By: Renard Burgos on 10-14-2024 Eosinophils/100 WBC (Bld) 0.8 % 0-5 [facility] Erythrocyte distribution wid th ratioOrdered By: Renard Burgos on 10-14-2024 Erythrocyte distribution width (RBC) [Ratio] 13.2 % 11.6-14.6 [facility] Erythrocyte distribution wid th standard deviationOrdered By: Renard Burgos on 10-14-2024 Erythrocyte distribution width (RBC) [Ratio] 44.1 fl High 35.1-43.9 [facility] Hematocrit Auto (Bld) [Volum e fraction]Ordered By: Renard Burgos on 10-14-2024 Hematocrit (Bld) [Volume fraction] 42.7 % 40-54 [facility] Hemoglobin measurementOrdere d By: Renard Burgos on 10-14-2024 Hemoglobin (Bld) [Mass/Vol] 13.9 g/dL 13.0-16.5 [facility] Immature granulocytes/100 WB C Auto (Bld)Ordered By: Renard Burgos on 10-14-2024 Immature granulocytes/100 WBC (Bld) 0.300 % 0.0-0.9 [facility] Comment on above: IG% - Immature Granu locytes (promyelocytes, myelocytes and metamyelocytes) > 1% indicates that a LEFT SHIFT is Present. MCV (mean corpuscular volume ) determinationOrdered By: Renard Burgos on 10-14-2024 MCV (RBC) [Entitic vol] 91.2 fL 80-94 [facility] Mean corpuscular hemoglobin (MCH) determinationOrdered By: Renard Burgos on 10-14-2024 MCH (RBC) [Entitic mass] 29.7 pg 27.0-32.0 [facility] Mean corpuscular hemoglobin concentration (MCHC) determinationOrdered By: Renard Burgos on 10-14-2024 MCHC (RBC) [Mass/Vol] 32.6 g/dL 32-36 [facility] Mean platelet volume determi nationOrdered By: Renard Burgos on 10-14-2024 Platelet mean volume (Bld) [Entitic vol] 11.1 fL 6.2-12.0 [facility] Monocyte percentageOrdered B y: Renard Burgos on 10-14-2024 Monocytes/100 WBC (Bld) 8.6 % 0-10 [facility] Neutrophil percentageOrdered By: Renard Burgos on 10-14-2024 Neutrophils/100 WBC (Bld) 65.4 % 47-70 [facility] Nucleated red blood cell per centageOrdered By: Renard Burgos on 10-14-2024 Nucleated RBC/100 WBC (Bld) [Ratio] 0 % 0-5 [facility] Platelet countOrdered By: Garrick Bhatt on 10-14-2024 Platelets (Bld) [#/Vol] 232 10*3/uL 150-450 [facility] RBC Auto (Bld) [#/Vol]Ordere d By: Renard Burgos on 10-14-2024 RBC (Bld) [#/Vol] 4.68 10*6/uL 4.6-6.2 [facility] White blood cell (WBC) count Ordered By: Renard Burgos on 10-14-2024 WBC (Bld) [#/Vol] 7.3 10*3/uL 4.4-11.0 [facility] Absolute lymphocyte countOrd ered By: Renard Burgos on 10-07-2024 Lymphocytes Auto (Unsp spec) [#/Vol] 2.20 10*3/uL 0.83-4.51 [facility] Absolute neutrophil countOrd ered By: Renard Burgos on 10-07-2024 Neutrophils (Bld) [#/Vol] 5.1 10*3/uL 2.0-7.7 [facility] Automated lymphocyte count a s percentage of total leukocytesOrdered By: Renard Burgos on 10-07-2024 Lymphocytes/100 WBC Auto (Unsp spec) 27.2 % 19-41 [facility] Basophil percentageOrdered B y: Renard Burgos on 10-07-2024 Basophils/100 WBC (Bld) 0.5 % 0-1 [facility] CBC W/Diff, Automatedon Absolute Lymph 2.20 X10 3/uL Normal 0.83-4.51 [facility] Comment on above: Order Comment: 109-1 Performed By: #### L 100.0100 ####[facility] [address] [place], [address] Absolute Neut 5.1 X10 3/uL Normal 2.0-7.7 [facility] Comment on above: Order Comment: 109-1 Performed By: #### L 100.0100 ####[facility] [address] [place], [address] Basophils/100 WBC (Bld) 0.5 % Normal 0-1 [facility] Comment on above: Order Comment: 109-1 Performed By: #### L 100.0100 ####[facility] [address] [place], [address] Eosinophils/100 WBC (Bld) 0.9 % Normal 0-5 [facility] Comment on above: Order Comment: 109-1 Performed By: #### L 100.0100 ####[facility] [address] [place], [address] Erythrocyte distribution width (RBC) [Ratio] 13.2 % Normal 11.6-14.6 [facility] Comment on above: Order Comment: 109-1 Performed By: #### L 100.0100 ####[facility] [address] [place], [address] Hematocrit (Bld) [Volume fraction] 40.8 % Normal 40-54 [facility] Comment on above: Order Comment: 109-1 Performed By: #### L 100.0100 ####[facility] [address] [place], [address] Hemoglobin (Bld) [Mass/Vol] 13.8 g/dL Normal 13.0-16.5 [facility] Comment on above: Order Comment: 109-1 Performed By: #### L 100.0100 ####[facility] [address] [place], [address] IG% 0.200 Normal 0.0-0.9 [facility] Comment on above: Order Comment: 109-1 Result Comment: IG% - Immature Granulocytes (promyelocytes, myelocytes andmetamyelocytes) > 1% indicates that a LEFT SHIFT is Present. Performed By: #### L 100.0100 ####[facility] [address] [place], [address] Lymphocytes/100 WBC (Bld) 27.2 % Normal 19-41 [facility] Comment on above: Order Comment: 109-1 Performed By: #### L 100.0100 ####[facility] [address] [place], [address] MCH (RBC) [Entitic mass] 30.0 pg Normal 27.0-32.0 [facility] Comment on above: Order Comment: 109-1 Performed By: #### L 100.0100 ####[facility] [address] [place], [address] MCHC (RBC) [Mass/Vol] 33.8 g/dL Normal 32-36 [facility] Comment on above: Order Comment: 109-1 Performed By: #### L 100.0100 ####[facility] [address] [place], [address] MCV (RBC) [Entitic vol] 88.7 fL Normal 80-94 [facility] Comment on above: Order Comment: 109-1 Performed By: #### L 100.0100 ####[facility] [address] [place], [address] Monocytes/100 WBC (Bld) 8.4 % Normal 0-10 [facility] Comment on above: Order Comment: 109-1 Performed By: #### L 100.0100 ####[facility] [address] [place], [address] Neutrophils/100 WBC (Bld) 62.8 % Normal 47-70 [facility] Comment on above: Order Comment: 109-1 Performed By: #### L 100.0100 ####[facility] [address] [place], [address] Nucleated RBC (Bld) [#/Vol] 0 10*3/uL Normal 0-5 [facility] Comment on above: Order Comment: 109-1 Performed By: #### L 100.0100 ####[facility] [address] [place], [address] Platelet mean volume (Bld) [Entitic vol] 11.2 fL Normal 6.2-12.0 [facility] Comment on above: Order Comment: 109-1 Performed By: #### L 100.0100 ####[facility] [address] [place], [address] Platelets (Bld) [#/Vol] 214 10*3/uL Normal 150-450 [facility] Comment on above: Order Comment: 109-1 Performed By: #### L 100.0100 ####[facility] [address] [place], [address] RBC (Bld) [#/Vol] 4.60 10*6/uL Normal 4.6-6.2 [facility] Comment on above: Order Comment: 109-1 Performed By: #### L 100.0100 ####[facility] [address] [place], [address] RDW SD 43.0 fl Normal 35.1-43.9 [facility] Comment on above: Order Comment: 109-1 Performed By: #### L 100.0100 ####[facility] [address] [place], [address] WBC (Bld) [#/Vol] 8.1 10*3/uL Normal 4.4-11.0 [facility] Comment on above: Order Comment: 109-1 Performed By: #### L 100.0100 ####[facility] [address] [place], [address] Eosinophil percentageOrdered By: Renard Burgos on 10-07-2024 Eosinophils/100 WBC (Bld) 0.9 % 0-5 [facility] Erythrocyte distribution wid th ratioOrdered By: Renard Burgos on 10-07-2024 Erythrocyte distribution width (RBC) [Ratio] 13.2 % 11.6-14.6 [facility] Erythrocyte distribution wid th standard deviationOrdered By: Renard Burgos on 10-07-2024 Erythrocyte distribution width (RBC) [Ratio] 43.0 fl 35.1-43.9 [facility] Hematocrit Auto (Bld) [Volum e fraction]Ordered By: Renard Burgos on 10-07-2024 Hematocrit (Bld) [Volume fraction] 40.8 % 40-54 [facility] Hemoglobin measurementOrdere d By: Renard Burgos on 10-07-2024 Hemoglobin (Bld) [Mass/Vol] 13.8 g/dL 13.0-16.5 [facility] Immature granulocytes/100 WB C Auto (Bld)Ordered By: Renard Burgos on 10-07-2024 Immature granulocytes/100 WBC (Bld) 0.200 % 0.0-0.9 [facility] Comment on above: IG% - Immature Granu locytes (promyelocytes, myelocytes and metamyelocytes) > 1% indicates that a LEFT SHIFT is Present. MCV (mean corpuscular volume ) determinationOrdered By: Renard Burgos on 10-07-2024 MCV (RBC) [Entitic vol] 88.7 fL 80-94 [facility] Mean corpuscular hemoglobin (MCH) determinationOrdered By: Renard Burgos on 10-07-2024 MCH (RBC) [Entitic mass] 30.0 pg 27.0-32.0 [facility] Mean corpuscular hemoglobin concentration (MCHC) determinationOrdered By: Renard Burgos on 10-07-2024 MCHC (RBC) [Mass/Vol] 33.8 g/dL 32-36 [facility] Mean platelet volume determi nationOrdered By: Renard Burgos on 10-07-2024 Platelet mean volume (Bld) [Entitic vol] 11.2 fL 6.2-12.0 [facility] Monocyte percentageOrdered B y: Renard Burgos on 10-07-2024 Monocytes/100 WBC (Bld) 8.4 % 0-10 [facility] Neutrophil percentageOrdered By: Renard Burgos on 10-07-2024 Neutrophils/100 WBC (Bld) 62.8 % 47-70 [facility] Nucleated red blood cell per centageOrdered By: Renard Burgos on 10-07-2024 Nucleated RBC/100 WBC (Bld) [Ratio] 0 % 0-5 [facility] Platelet countOrdered By: Garrick Bhatt on 10-07-2024 Platelets (Bld) [#/Vol] 214 10*3/uL 150-450 [facility] RBC Auto (Bld) [#/Vol]Ordere d By: Renard Burgos on 10-07-2024 RBC (Bld) [#/Vol] 4.60 10*6/uL 4.6-6.2 [facility] White blood cell (WBC) count Ordered By: Renard Burgos on 10-07-2024 WBC (Bld) [#/Vol] 8.1 10*3/uL 4.4-11.0 [facility] Absolute lymphocyte countOrd ered By: Renard Burgos on 09-30-2024 Lymphocytes Auto (Unsp spec) [#/Vol] 3.13 10*3/uL 0.83-4.51 [facility] Absolute neutrophil countOrd ered By: Renard Burgos on 09-30-2024 Neutrophils (Bld) [#/Vol] 5.6 10*3/uL 2.0-7.7 [facility] Automated lymphocyte count a s percentage of total leukocytesOrdered By: Renard Brugos on 09-30-2024 Lymphocytes/100 WBC Auto (Unsp spec) 31.7 % 19-41 [facility] Basophil percentageOrdered B y: Renard Burgos on 09-30-2024 Basophils/100 WBC (Bld) 0.6 % 0-1 [facility] CBC W/Diff, Automatedon Absolute Lymph 3.13 X10 3/uL Normal 0.83-4.51 [facility] Comment on above: Order Comment: 109-1 Performed By: #### L 100.0100 ####[facility] [address] [place], [address] Absolute Neut 5.6 X10 3/uL Normal 2.0-7.7 [facility] Comment on above: Order Comment: 109-1 Performed By: #### L 100.0100 ####[facility] [address] [place], [address] Basophils/100 WBC (Bld) 0.6 % Normal 0-1 [facility] Comment on above: Order Comment: 109-1 Performed By: #### L 100.0100 ####[facility] [address] [place], [address] Eosinophils/100 WBC (Bld) 0.7 % Normal 0-5 [facility] Comment on above: Order Comment: 109-1 Performed By: #### L 100.0100 ####[facility] [address] [place], [address] Erythrocyte distribution width (RBC) [Ratio] 13.0 % Normal 11.6-14.6 [facility] Comment on above: Order Comment: 109-1 Performed By: #### L 100.0100 ####[facility] [address] [place], [address] Hematocrit (Bld) [Volume fraction] 46.9 % Normal 40-54 [facility] Comment on above: Order Comment: 109-1 Performed By: #### L 100.0100 ####[facility] [address] [place], [address] Hemoglobin (Bld) [Mass/Vol] 15.3 g/dL Normal 13.0-16.5 [facility] Comment on above: Order Comment: 109-1 Performed By: #### L 100.0100 ####[facility] [address] [place], [address] IG% 0.300 Normal 0.0-0.9 [facility] Comment on above: Order Comment: 109-1 Result Comment: IG% - Immature Granulocytes (promyelocytes, myelocytes andmetamyelocytes) > 1% indicates that a LEFT SHIFT is Present. Performed By: #### L 100.0100 ####[facility] [address] [place], [address] Lymphocytes/100 WBC (Bld) 31.7 % Normal 19-41 [facility] Comment on above: Order Comment: 109-1 Performed By: #### L 100.0100 ####[facility] [address] [place], [address] MCH (RBC) [Entitic mass] 29.7 pg Normal 27.0-32.0 [facility] Comment on above: Order Comment: 109-1 Performed By: #### L 100.0100 ####[facility] [address] [place], [address] MCHC (RBC) [Mass/Vol] 32.6 g/dL Normal 32-36 [facility] Comment on above: Order Comment: 109-1 Performed By: #### L 100.0100 ####[facility] [address] [place], [address] MCV (RBC) [Entitic vol] 91.1 fL Normal 80-94 [facility] Comment on above: Order Comment: 109-1 Performed By: #### L 100.0100 ####[facility] [address] [place], [address] Monocytes/100 WBC (Bld) 10.4 % High 0-10 [facility] Comment on above: Order Comment: 109-1 Performed By: #### L 100.0100 ####[facility] [address] [place], [address] Neutrophils/100 WBC (Bld) 56.3 % Normal 47-70 [facility] Comment on above: Order Comment: 109-1 Performed By: #### L 100.0100 ####[facility] [address] [place], [address] Nucleated RBC (Bld) [#/Vol] 0 10*3/uL Normal 0-5 [facility] Comment on above: Order Comment: 109-1 Performed By: #### L 100.0100 ####[facility] [address] [place], [address] Platelet mean volume (Bld) [Entitic vol] 11.7 fL Normal 6.2-12.0 [facility] Comment on above: Order Comment: 109-1 Performed By: #### L 100.0100 ####[facility] [address] [place], [address] Platelets (Bld) [#/Vol] 208 10*3/uL Normal 150-450 [facility] Comment on above: Order Comment: 109-1 Performed By: #### L 100.0100 ####[facility] [address] [place], [address] RBC (Bld) [#/Vol] 5.15 10*6/uL Normal 4.6-6.2 [facility] Comment on above: Order Comment: 109-1 Performed By: #### L 100.0100 ####[facility] [address] [place], [address] RDW SD 42.7 fl Normal 35.1-43.9 [facility] Comment on above: Order Comment: 109-1 Performed By: #### L 100.0100 ####[facility] [address] [place], [address] WBC (Bld) [#/Vol] 9.9 10*3/uL Normal 4.4-11.0 [facility] Comment on above: Order Comment: 109-1 Performed By: #### L 100.0100 ####[facility] [address] [place], [address] Eosinophil percentageOrdered By: Renard Burgos on 09-30-2024 Eosinophils/100 WBC (Bld) 0.7 % 0-5 [facility] Erythrocyte distribution wid th ratioOrdered By: Renard Burgos on 09-30-2024 Erythrocyte distribution width (RBC) [Ratio] 13.0 % 11.6-14.6 [facility] Erythrocyte distribution wid th standard deviationOrdered By: Renard Burgos on 09-30-2024 Erythrocyte distribution width (RBC) [Ratio] 42.7 fl 35.1-43.9 [facility] Hematocrit Auto (Bld) [Volum e fraction]Ordered By: Renard Burgos on 09-30-2024 Hematocrit (Bld) [Volume fraction] 46.9 % 40-54 [facility] Hemoglobin measurementOrdere d By: Renard Burgos on 09-30-2024 Hemoglobin (Bld) [Mass/Vol] 15.3 g/dL 13.0-16.5 [facility] Immature granulocytes/100 WB C Auto (Bld)Ordered By: Renard Burgos on 09-30-2024 Immature granulocytes/100 WBC (Bld) 0.300 % 0.0-0.9 [facility] Comment on above: IG% - Immature Granu locytes (promyelocytes, myelocytes and metamyelocytes) > 1% indicates that a LEFT SHIFT is Present. MCV (mean corpuscular volume ) determinationOrdered By: Renard Burgos on 09-30-2024 MCV (RBC) [Entitic vol] 91.1 fL 80-94 [facility] Mean corpuscular hemoglobin (MCH) determinationOrdered By: Renard Burgos on 09-30-2024 MCH (RBC) [Entitic mass] 29.7 pg 27.0-32.0 [facility] Mean corpuscular hemoglobin concentration (MCHC) determinationOrdered By: Renard Burgos on 09-30-2024 MCHC (RBC) [Mass/Vol] 32.6 g/dL 32-36 [facility] Mean platelet volume determi nationOrdered By: Renard Burgos on 09-30-2024 Platelet mean volume (Bld) [Entitic vol] 11.7 fL 6.2-12.0 [facility] Monocyte percentageOrdered B y: Renard Burgos on 09-30-2024 Monocytes/100 WBC (Bld) 10.4 % High 0-10 [facility] Neutrophil percentageOrdered By: Renard Burgos on 09-30-2024 Neutrophils/100 WBC (Bld) 56.3 % 47-70 [facility] Nucleated red blood cell per centageOrdered By: Renard Burgos on 09-30-2024 Nucleated RBC/100 WBC (Bld) [Ratio] 0 % 0-5 [facility] Platelet countOrdered By: Garrick Bhatt on 09-30-2024 Platelets (Bld) [#/Vol] 208 10*3/uL 150-450 [facility] RBC Auto (Bld) [#/Vol]Ordere d By: Renard Burgos on 09-30-2024 RBC (Bld) [#/Vol] 5.15 10*6/uL 4.6-6.2 [facility] White blood cell (WBC) count Ordered By: Renard Burgos on 09-30-2024 WBC (Bld) [#/Vol] 9.9 10*3/uL 4.4-11.0 [facility] Absolute lymphocyte countOrd ered By: Renard Burgos on 09-24-2024 Lymphocytes Auto (Unsp spec) [#/Vol] 1.97 10*3/uL 0.83-4.51 [facility] Absolute neutrophil countOrd ered By: Renard Burgos on 09-24-2024 Neutrophils (Bld) [#/Vol] 6.8 10*3/uL 2.0-7.7 [facility] Automated blood erythrocyte countOrdered By: Renard Burgos on 09-24-2024 RBC (Bld) [#/Vol] 4.48 10*6/uL Low 4.6-6.2 [facility] Comment on above: Order Comment: 109 Performed By: #### L 100.0100 ####[facility] [address] [place], [address] Automated blood hematocrit ( percentage)Ordered By: Renard Burgos on 09-24-2024 Hematocrit (Bld) [Volume fraction] 40.4 % Normal 40-54 [facility] Comment on above: Order Comment: 109 Performed By: #### L 100.0100 ####[facility] [address] [place], [place], [id number] Automated lymphocyte count a s percentage of total leukocytesOrdered By: Renard Burgos on 09-24-2024 Lymphocytes/100 WBC Auto (Unsp spec) 20.5 % 19-41 [facility] Basophil percentageOrdered B y: Renard Burgos on 09-24-2024 Basophils/100 WBC (Bld) 0.5 % Normal 0-1 [facility] Comment on above: Order Comment: 109 Performed By: #### L 100.0100 ####[facility] [address] [place], [place], [id number] CBC W/Diff, Automatedon 08-30 Absolute Lymph 1.97 X10 3/uL Normal 0.83-4.51 [facility] Comment on above: Order Comment: 109 Performed By: #### L 100.0100 ####[facility] [address] [place], [address] Absolute Neut 6.8 X10 3/uL Normal 2.0-7.7 [facility] Comment on above: Order Comment: 109 Performed By: #### L 100.0100 ####[facility] [address] [place], [address] IG% 0.300 Normal 0.0-0.9 [facility] Comment on above: Order Comment: 109 Result Comment: IG% - Immature Granulocytes (promyelocytes, myelocytes andmetamyelocytes) > 1% indicates that a LEFT SHIFT is Present. Performed By: #### L 100.0100 ####[facility] [address] [place], [address] Lymphocytes/100 WBC (Bld) 20.5 % Normal 19-41 [facility] Comment on above: Order Comment: 109 Performed By: #### L 100.0100 ####[facility] [address] [place], [address] Nucleated RBC (Bld) [#/Vol] 0 10*3/uL Normal 0-5 [facility] Comment on above: Order Comment: 109 Performed By: #### L 100.0100 ####[facility] [address] [place], [address] RDW SD 42.9 fl Normal 35.1-43.9 [facility] Comment on above: Order Comment: 109 Performed By: #### L 100.0100 ####[facility] [address] [place], [address] Eosinophil percentageOrdered By: Renard Burgos on 09-24-2024 Eosinophils/100 WBC (Bld) 0.5 % Normal 0-5 [facility] Comment on above: Order Comment: 109 Performed By: #### L 100.0100 ####[facility] [address] [place], [address] Erythrocyte distribution wid th ratioOrdered By: Renard Burgos on 09-24-2024 Erythrocyte distribution width (RBC) [Ratio] 13.1 % Normal 11.6-14.6 [facility] Comment on above: Order Comment: 109 Performed By: #### L 100.0100 ####[facility] [address] [place], [place], [address] Erythrocyte distribution wid th standard deviationOrdered By: Renard Burgos on 09-24-2024 Erythrocyte distribution width (RBC) [Ratio] 42.9 fl 35.1-43.9 [facility] Hemoglobin measurementOrdere d By: Renard Burgos on 09-24-2024 Hemoglobin (Bld) [Mass/Vol] 13.4 g/dL Normal 13.0-16.5 [facility] Comment on above: Order Comment: 109 Performed By: #### L 100.0100 ####[facility] [address] [place], [place], [phone]) Immature granulocytes/100 WB C Auto (Bld)Ordered By: Renard Burgos on 09-24-2024 Immature granulocytes/100 WBC (Bld) 0.300 % 0.0-0.9 [facility] Comment on above: IG% - Immature Granu locytes (promyelocytes, myelocytes and metamyelocytes) > 1% indicates that a LEFT SHIFT is Present. MCV (mean corpuscular volume ) determinationOrdered By: Renard Burgos on 09-24-2024 MCV (RBC) [Entitic vol] 90.2 fL Normal 80-94 [facility] Comment on above: Order Comment: 109 Performed By: #### L 100.0100 ####[facility] [address] [place], [place], [id number] Mean corpuscular hemoglobin (MCH) determinationOrdered By: Renard Burgos on 09-24-2024 MCH (RBC) [Entitic mass] 29.9 pg Normal 27.0-32.0 [facility] Comment on above: Order Comment: 109 Performed By: #### L 100.0100 ####[facility] [address] [place], [address] Mean corpuscular hemoglobin concentration (MCHC) determinationOrdered By: Renard Burgos on 09-24-2024 MCHC (RBC) [Mass/Vol] 33.2 g/dL Normal 32-36 [facility] Comment on above: Order Comment: 109 Performed By: #### L 100.0100 ####[facility] [address] [place], [address] Mean platelet volume determi nationOrdered By: Renard Burgos on 09-24-2024 Platelet mean volume (Bld) [Entitic vol] 11.3 fL Normal 6.2-12.0 [facility] Comment on above: Order Comment: 109 Performed By: #### L 100.0100 ####[facility] [address] [place], [address] Monocyte percentageOrdered B y: Renard Burgos on 09-24-2024 Monocytes/100 WBC (Bld) 7.2 % Normal 0-10 [facility] Comment on above: Order Comment: 109 Performed By: #### L 100.0100 ####[facility] [address] [place], [address] Neutrophil percentageOrdered By: Renard Burgos on 09-24-2024 Neutrophils/100 WBC (Bld) 71.0 % High 47-70 [facility] Comment on above: Order Comment: 109 Performed By: #### L 100.0100 ####[facility] [address] [place], [address] Nucleated red blood cell per centageOrdered By: Renard Burgos on 09-24-2024 Nucleated RBC/100 WBC (Bld) [Ratio] 0 % 0-5 [facility] Platelet countOrdered By: Garrick Bhatt on 09-24-2024 Platelets (Bld) [#/Vol] 187 10*3/uL Normal 150-450 [facility] Comment on above: Order Comment: 109 Performed By: #### L 100.0100 ####[facility] [address] [place], [address] White blood cell (WBC) count Ordered By: Renard Burgos on 09-24-2024 WBC (Bld) [#/Vol] 9.6 10*3/uL Normal 4.4-11.0 [facility] Comment on above: Order Comment: 109 Performed By: #### L 100.0100 ####[facility] [address] [place], [place], [phone] Absolute lymphocyte countOrd ered By: Renard Burgos on 09-16-2024 Lymphocytes Auto (Unsp spec) [#/Vol] 2.44 10*3/uL 0.83-4.51 [facility] Absolute neutrophil countOrd ered By: Renard Burgos on 09-16-2024 Neutrophils (Bld) [#/Vol] 5.5 10*3/uL 2.0-7.7 [facility] Automated lymphocyte count a s percentage of total leukocytesOrdered By: Renard Burgos on 09-16-2024 Lymphocytes/100 WBC Auto (Unsp spec) 27.7 % - [facility] Basophil percentageOrdered B y: Renard Burgos on 09-16-2024 Basophils/100 WBC (Bld) 0.8 % 0-1 [facility] CBC W/Diff, Automatedon 08-29 Absolute Lymph 2.44 X10 3/uL Normal 0.83-4.51 [facility] Comment on above: Order Comment: 109.1 Performed By: #### L 100.0100 ####[facility] [address] [place], [address] Absolute Neut 5.5 X10 3/uL Normal 2.0-7.7 [facility] Comment on above: Order Comment: 109.1 Performed By: #### L 100.0100 ####[facility] [address] [place], [address] Basophils/100 WBC (Bld) 0.8 % Normal 0-1 [facility] Comment on above: Order Comment: 109.1 Performed By: #### L 100.0100 ####[facility] [address] [place], [address] Eosinophils/100 WBC (Bld) 0.7 % Normal 0-5 [facility] Comment on above: Order Comment: 109.1 Performed By: #### L 100.0100 ####[facility] [address] [place], [address] Erythrocyte distribution width (RBC) [Ratio] 13.1 % Normal 11.6-14.6 [facility] Comment on above: Order Comment: 109.1 Performed By: #### L 100.0100 ####[facility] [address] [place], [address] Hematocrit (Bld) [Volume fraction] 46.8 % Normal 40-54 [facility] Comment on above: Order Comment: 109.1 Performed By: #### L 100.0100 ####[facility] [address] [place], [address] Hemoglobin (Bld) [Mass/Vol] 15.4 g/dL Normal 13.0-16.5 [facility] Comment on above: Order Comment: 109.1 Performed By: #### L 100.0100 ####[facility] [address] [place], [address] IG% 0.200 Normal 0.0-0.9 [facility] Comment on above: Order Comment: 109.1 Result Comment: IG% - Immature Granulocytes (promyelocytes, myelocytes andmetamyelocytes) > 1% indicates that a LEFT SHIFT is Present. Performed By: #### L 100.0100 ####[facility] [address] [place], [address] Lymphocytes/100 WBC (Bld) 27.7 % Normal 19-41 [facility] Comment on above: Order Comment: 109.1 Performed By: #### L 100.0100 ####[facility] [address] [place], [address] MCH (RBC) [Entitic mass] 30.1 pg Normal 27.0-32.0 [facility] Comment on above: Order Comment: 109.1 Performed By: #### L 100.0100 ####[facility] [address] [place], [address] MCHC (RBC) [Mass/Vol] 32.9 g/dL Normal 32-36 [facility] Comment on above: Order Comment: 109.1 Performed By: #### L 100.0100 ####[facility] [address] [place], [address] MCV (RBC) [Entitic vol] 91.4 fL Normal 80-94 [facility] Comment on above: Order Comment: 109.1 Performed By: #### L 100.0100 ####[facility] [address] [place], [address] Monocytes/100 WBC (Bld) 8.5 % Normal 0-10 [facility] Comment on above: Order Comment: 109.1 Performed By: #### L 100.0100 ####[facility] [address] [place], [address] Neutrophils/100 WBC (Bld) 62.1 % Normal 47-70 [facility] Comment on above: Order Comment: 109.1 Performed By: #### L 100.0100 ####[facility] [address] [place], [address] Nucleated RBC (Bld) [#/Vol] 0 10*3/uL Normal 0-5 [facility] Comment on above: Order Comment: 109.1 Performed By: #### L 100.0100 ####[facility] [address] [place], [address] Platelet mean volume (Bld) [Entitic vol] 10.6 fL Normal 6.2-12.0 [facility] Comment on above: Order Comment: 109.1 Performed By: #### L 100.0100 ####[facility] [address] [place], [address] Platelets (Bld) [#/Vol] 190 10*3/uL Normal 150-450 [facility] Comment on above: Order Comment: 109.1 Performed By: #### L 100.0100 ####[facility] [address] [place], [address] RBC (Bld) [#/Vol] 5.12 10*6/uL Normal 4.6-6.2 [facility] Comment on above: Order Comment: 109.1 Performed By: #### L 100.0100 ####[facility] [address] [place], [address] RDW SD 43.3 fl Normal 35.1-43.9 [facility] Comment on above: Order Comment: 109.1 Performed By: #### L 100.0100 ####[facility] [address] [place], [address] WBC (Bld) [#/Vol] 8.8 10*3/uL Normal 4.4-11.0 [facility] Comment on above: Order Comment: 109.1 Performed By: #### L 100.0100 ####[facility] [address] [place], [address] Eosinophil percentageOrdered By: Renard Burgos on 09-16-2024 Eosinophils/100 WBC (Bld) 0.7 % 0-5 [facility] Erythrocyte distribution wid th ratioOrdered By: Renard Burgos on 09-16-2024 Erythrocyte distribution width (RBC) [Ratio] 13.1 % 11.6-14.6 [facility] Erythrocyte distribution wid th standard deviationOrdered By: Renard Burgos on 09-16-2024 Erythrocyte distribution width (RBC) [Ratio] 43.3 fl 35.1-43.9 [facility] Hematocrit Auto (Bld) [Volum e fraction]Ordered By: Renard Burgos on 09-16-2024 Hematocrit (Bld) [Volume fraction] 46.8 % 40-54 [facility] Hemoglobin measurementOrdere d By: Renard Burgos on 09-16-2024 Hemoglobin (Bld) [Mass/Vol] 15.4 g/dL 13.0-16.5 [facility] Immature granulocytes/100 WB C Auto (Bld)Ordered By: Renard Burgos on 09-16-2024 Immature granulocytes/100 WBC (Bld) 0.200 % 0.0-0.9 [facility] Comment on above: IG% - Immature Granu locytes (promyelocytes, myelocytes and metamyelocytes) > 1% indicates that a LEFT SHIFT is Present. MCV (mean corpuscular volume ) determinationOrdered By: Renard Burgos on 09-16-2024 MCV (RBC) [Entitic vol] 91.4 fL 80-94 [facility] Mean corpuscular hemoglobin (MCH) determinationOrdered By: Renard Burgos on 09-16-2024 MCH (RBC) [Entitic mass] 30.1 pg 27.0-32.0 [facility] Mean corpuscular hemoglobin concentration (MCHC) determinationOrdered By: Renard Burgos on 09-16-2024 MCHC (RBC) [Mass/Vol] 32.9 g/dL 32-36 [facility] Mean platelet volume determi nationOrdered By: Renard uBrgos on 09-16-2024 Platelet mean volume (Bld) [Entitic vol] 10.6 fL 6.2-12.0 [facility] Monocyte percentageOrdered B y: Renard Burgos on 09-16-2024 Monocytes/100 WBC (Bld) 8.5 % 0-10 [facility] Neutrophil percentageOrdered By: Renard Burgos on 09-16-2024 Neutrophils/100 WBC (Bld) 62.1 % 47-70 [facility] Nucleated red blood cell per centageOrdered By: Renard Burgos on 09-16-2024 Nucleated RBC/100 WBC (Bld) [Ratio] 0 % 0-5 [facility] Platelet countOrdered By: Garrick Bhatt on 09-16-2024 Platelets (Bld) [#/Vol] 190 10*3/uL 150-450 [facility] RBC Auto (Bld) [#/Vol]Ordere d By: Renard Burgos on 09-16-2024 RBC (Bld) [#/Vol] 5.12 10*6/uL 4.6-6.2 [facility] White blood cell (WBC) count Ordered By: Renard Burgos on 09-16-2024 WBC (Bld) [#/Vol] 8.8 10*3/uL 4.4-11.0 [facility] Anion gap in Serum or Plasma Ordered By: Renard Burgos on 09-11-2024 Anion gap [Moles/Vol] 11 mmol/L 5-15 [facility] Automated blood erythrocyte countOrdered By: Renard Burgos on 09-11-2024 RBC (Bld) [#/Vol] 4.67 10*6/uL Normal 4.6-6.2 [facility] Comment on above: Order Comment: 109-1 Performed By: #### L 100.0500, L500.2500 ####[facility] [address] [place], [address] Automated blood hematocrit ( percentage)Ordered By: Renard Burgos on 09-11-2024 Hematocrit (Bld) [Volume fraction] 42.7 % Normal 40-54 [facility] Comment on above: Order Comment: 109-1 Performed By: #### L 100.0500, L500.2500 ####[facility] [address] [place], [address] BUN/creatinine ratioOrdered By: Renard Burgos on 09-11-2024 Urea nitrogen/Creatinine [Mass ratio] 23.0 mg/mg High [facility] Basic Metabolic Profile (BMP )on 09-11-2024 BUN/CRE 23.0 RATIO High [facility] Comment on above: Order Comment: 109-1 Performed By: #### L 100.0500, L500.2500 ####[facility] [address] [place], [address] Calcium [Mass/Vol] 8.7 mg/dL Normal 7.6-11.0 [facility] Comment on above: Order Comment: 109-1 Performed By: #### L 100.0500, L500.2500 ####[facility] [address] [place], [address] Chloride [Moles/Vol] 104 mmol/L Normal 98-108 [facility] Comment on above: Order Comment: 109-1 Performed By: #### L 100.0500, L500.2500 ####[facility] [address] [place], [address] CO2 [Moles/Vol] 25.9 mmol/L Normal 21.0-32.0 [facility] Comment on above: Order Comment: 109-1 Performed By: #### L 100.0500, L500.2500 ####[facility] [address] [place], [address] Creatinine [Mass/Vol] 0.58 mg/dL Low 0.70-1.20 [facility] Comment on above: Order Comment: 109-1 Performed By: #### L 100.0500, L500.2500 ####[facility] [address] [place], [address] GAP 11 Normal 5-15 [facility] Comment on above: Order Comment: 109-1 Performed By: #### L 100.0500, L500.2500 ####[facility] [address] [place], [address] GFR/1.73 sq M.predicted among non-blacks MDRD (S/P/Bld) [Vol rate/Area] 107 mL/min/{1.73_m2} Normal >60 [facility] Comment on above: Order Comment: 109-1 Result Comment: mL/m in/1.73m2 CKD-EPI Creatinine Equation (2020) Performed By: #### L 100.0500, L500.2500 ####[facility] [address] [place], [address] Glucose [Mass/Vol] 113 mg/dL High 70-99 [facility] Comment on above: Order Comment: 109-1 Performed By: #### L 100.0500, L500.2500 ####[facility] [address] [place], [address] Potassium [Moles/Vol] 3.8 mmol/L Normal 3.3-5.1 [facility] Comment on above: Order Comment: 109-1 Performed By: #### L 100.0500, L500.2500 ####[facility] [address] [place], [address] Sodium [Moles/Vol] 141 mmol/L Normal 133-145 [facility] Comment on above: Order Comment: 109-1 Performed By: #### L 100.0500, L500.2500 ####[facility] [address] [place], [address] Urea nitrogen [Mass/Vol] 13 mg/dL Normal 4-19 [facility] Comment on above: Order Comment: 109-1 Performed By: #### L 100.0500, L500.2500 ####[facility] [address] [place], [address] CBC-Complete Blood Cnt No Di ffon 09-11-2024 RDW SD 43.7 fl Normal 35.1-43.9 [facility] Comment on above: Order Comment: 109-1 Performed By: #### L 100.0500, L500.2500 ####[facility] [address] [place], [address] Carbon dioxide, total [Moles /volume] in Central venous bloodOrdered By: Renard Burgos on 09-11-2024 CO2 [Moles/Vol] 25.9 mmol/L 21.0-32.0 [facility] Chloride assayOrdered By: Garrick Bhatt on 09-11-2024 Chloride [Moles/Vol] 104 mmol/L 98-108 [facility] Erythrocyte distribution wid th ratioOrdered By: Renard Burgos on 09-11-2024 Erythrocyte distribution width (RBC) [Ratio] 13.2 % Normal 11.6-14.6 [facility] Comment on above: Order Comment: 109-1 Performed By: #### L 100.0500, L500.2500 ####[facility] [address] [place], [address] Erythrocyte distribution wid th standard deviationOrdered By: Renard Burgos on 09-11-2024 Erythrocyte distribution width (RBC) [Ratio] 43.7 fl 35.1-43.9 [facility] Glomerular filtration rate ( GFR) estimation/1.73 sq m using serum, plasma, or whole bOrdered By: Renard Burgos on 09-11-2024 GFR/1.73 sq M.predicted among non-blacks MDRD (S/P/Bld) [Vol rate/Area] 107 mL/min/{1.73_m2} >60 [facility] Comment on above: mL/min/1.73m2 CKD-EP I Creatinine Equation (2020) Hemoglobin measurementOrdere d By: Renard Burgos on 09-11-2024 Hemoglobin (Bld) [Mass/Vol] 14.0 g/dL Normal 13.0-16.5 [facility] Comment on above: Order Comment: 109-1 Performed By: #### L 100.0500, L500.2500 ####[facility] [address] [place], [address] MCV (mean corpuscular volume ) determinationOrdered By: Renard Burgos on 09-11-2024 MCV (RBC) [Entitic vol] 91.4 fL Normal 80-94 [facility] Comment on above: Order Comment: 109-1 Performed By: #### L 100.0500, L500.2500 ####[facility] [address] [place], [address] Mean corpuscular hemoglobin (MCH) determinationOrdered By: Renard Burgos on 09-11-2024 MCH (RBC) [Entitic mass] 30.0 pg Normal 27.0-32.0 [facility] Comment on above: Order Comment: 109-1 Performed By: #### L 100.0500, L500.2500 ####[facility] [address] [place], [address] Mean corpuscular hemoglobin concentration (MCHC) determinationOrdered By: Renard Burgos on 09-11-2024 MCHC (RBC) [Mass/Vol] 32.8 g/dL Normal 32-36 [facility] Comment on above: Order Comment: 109-1 Performed By: #### L 100.0500, L500.2500 ####[facility] [address] [place], [address] Mean platelet volume determi nationOrdered By: Renard Burgos on 09-11-2024 Platelet mean volume (Bld) [Entitic vol] 11.3 fL Normal 6.2-12.0 [facility] Comment on above: Order Comment: 109-1 Performed By: #### L 100.0500, L500.2500 ####[facility] [address] [place], [address] Platelet countOrdered By: Garrick Bhatt on 09-11-2024 Platelets (Bld) [#/Vol] 191 10*3/uL Normal 150-450 [facility] Comment on above: Order Comment: 109-1 Performed By: #### L 100.0500, L500.2500 ####[facility] [address] [place], [address] Potassium measurement (mass/ volume)Ordered By: Renard Burgos on 09-11-2024 Potassium (Unsp spec) [Mass/Vol] 3.8 mmol/L 3.3-5.1 [facility] Serum creatinine measurement (mass/volume)Ordered By: Renard Burgos on 09-11-2024 Creatinine [Mass/Vol] 0.58 mg/dL Low 0.70-1.20 [facility] Serum glucose measurement (m ass/volume)Ordered By: Renard Burgos on 09-11-2024 Glucose [Mass/Vol] 113 mg/dL High 70-99 [facility] Serum or plasma calcium gordy urement (mass/volume)Ordered By: Renard Burgos on 09-11-2024 Calcium [Mass/Vol] 8.7 mg/dL 7.6-11.0 [facility] Serum or plasma urea nitroge n measurement (mass/volume)Ordered By: Renard Burgos on 09-11-2024 Urea nitrogen [Mass/Vol] 13 mg/dL 4-19 [facility] Sodium levelOrdered By: Lamine Burgos on 09-11-2024 Sodium [Moles/Vol] 141 mmol/L 133-145 [facility] White blood cell (WBC) count Ordered By: Renard Burgos on 09-11-2024 WBC (Bld) [#/Vol] 7.6 10*3/uL Normal 4.4-11.0 [facility] Comment on above: Order Comment: 109-1 Performed By: #### L 100.0500, L500.2500 ####[facility] [address], [place], [id number] Absolute lymphocyte countOrd ered By: Renard Burgos on 09-09-2024 Lymphocytes Auto (Unsp spec) [#/Vol] 2.24 10*3/uL 0.83-4.51 [facility] Absolute neutrophil countOrd ered By: Renard Burgos on 09-09-2024 Neutrophils (Bld) [#/Vol] 8.7 10*3/uL High 2.0-7.7 [facility] Automated lymphocyte count a s percentage of total leukocytesOrdered By: Renard Burgos on 09-09-2024 Lymphocytes/100 WBC Auto (Unsp spec) 19.1 % 19-41 [facility] Basophil percentageOrdered B y: Renard Burgos on 09-09-2024 Basophils/100 WBC (Bld) 0.4 % 0-1 [facility] CBC W/Diff, Automatedon 08-29 Absolute Lymph 2.24 X10 3/uL Normal 0.83-4.51 [facility] Comment on above: Order Comment: 109-1 Performed By: #### L 100.0100 ####[facility] [address] [place], [address] Absolute Neut 8.7 X10 3/uL High 2.0-7.7 [facility] Comment on above: Order Comment: 109-1 Performed By: #### L 100.0100 ####[facility] [address] [place], [address] Basophils/100 WBC (Bld) 0.4 % Normal 0-1 [facility] Comment on above: Order Comment: 109-1 Performed By: #### L 100.0100 ####[facility] [address] [place], [address] Eosinophils/100 WBC (Bld) 0.5 % Normal 0-5 [facility] Comment on above: Order Comment: 109-1 Performed By: #### L 100.0100 ####[facility] [address] [place], [address] Erythrocyte distribution width (RBC) [Ratio] 13.0 % Normal 11.6-14.6 [facility] Comment on above: Order Comment: 109-1 Performed By: #### L 100.0100 ####[facility] [address] [place], [address] Hematocrit (Bld) [Volume fraction] 44.7 % Normal 40-54 [facility] Comment on above: Order Comment: 109-1 Performed By: #### L 100.0100 ####[facility] [address] [place], [address] Hemoglobin (Bld) [Mass/Vol] 14.6 g/dL Normal 13.0-16.5 [facility] Comment on above: Order Comment: 109-1 Performed By: #### L 100.0100 ####[facility] [address] [place], [address] IG% 0.300 Normal 0.0-0.9 [facility] Comment on above: Order Comment: 109-1 Result Comment: IG% - Immature Granulocytes (promyelocytes, myelocytes andmetamyelocytes) > 1% indicates that a LEFT SHIFT is Present. Performed By: #### L 100.0100 ####[facility] [address] [place], [address] Lymphocytes/100 WBC (Bld) 19.1 % Normal 19-41 [facility] Comment on above: Order Comment: 109-1 Performed By: #### L 100.0100 ####[facility] [address] [place], [address] MCH (RBC) [Entitic mass] 30.1 pg Normal 27.0-32.0 [facility] Comment on above: Order Comment: 109-1 Performed By: #### L 100.0100 ####[facility] [address] [place], [address] MCHC (RBC) [Mass/Vol] 32.7 g/dL Normal 32-36 [facility] Comment on above: Order Comment: 109-1 Performed By: #### L 100.0100 ####[facility] [address] [place], [address] MCV (RBC) [Entitic vol] 92.2 fL Normal 80-94 [facility] Comment on above: Order Comment: 109-1 Performed By: #### L 100.0100 ####[facility] [address] [place], [address] Monocytes/100 WBC (Bld) 5.1 % Normal 0-10 [facility] Comment on above: Order Comment: 109-1 Performed By: #### L 100.0100 ####[facility] [address] [place], [address] Neutrophils/100 WBC (Bld) 74.6 % High 47-70 [facility] Comment on above: Order Comment: 109-1 Performed By: #### L 100.0100 ####[facility] [address] [place], [place], [address] Nucleated RBC (Bld) [#/Vol] 0 10*3/uL Normal 0-5 [facility] Comment on above: Order Comment: 109-1 Performed By: #### L 100.0100 ####[facility] [address] [place], [address] Platelet mean volume (Bld) [Entitic vol] 11.6 fL Normal 6.2-12.0 [facility] Comment on above: Order Comment: 109-1 Performed By: #### L 100.0100 ####[facility] [address] [place], [address] Platelets (Bld) [#/Vol] 189 10*3/uL Normal 150-450 [facility] Comment on above: Order Comment: 109-1 Performed By: #### L 100.0100 ####[facility] [address] [place], [address] RBC (Bld) [#/Vol] 4.85 10*6/uL Normal 4.6-6.2 [facility] Comment on above: Order Comment: 109-1 Performed By: #### L 100.0100 ####[facility] [address] [place], [address] RDW SD 43.8 fl Normal 35.1-43.9 [facility] Comment on above: Order Comment: 109-1 Performed By: #### L 100.0100 ####[facility] [address] [place], [address] WBC (Bld) [#/Vol] 11.7 10*3/uL High 4.4-11.0 [facility] Comment on above: Order Comment: 109-1 Performed By: #### L 100.0100 ####[facility] [address] [place], [place], [address] Eosinophil percentageOrdered By: Renard Burgos on 09-09-2024 Eosinophils/100 WBC (Bld) 0.5 % 0-5 [facility] Erythrocyte distribution wid th ratioOrdered By: Renard Burgos on 09-09-2024 Erythrocyte distribution width (RBC) [Ratio] 13.0 % 11.6-14.6 [facility] Erythrocyte distribution wid th standard deviationOrdered By: Renard Burgos on 09-09-2024 Erythrocyte distribution width (RBC) [Ratio] 43.8 fl 35.1-43.9 [facility] Hematocrit Auto (Bld) [Volum e fraction]Ordered By: Renard Burgos on 09-09-2024 Hematocrit (Bld) [Volume fraction] 44.7 % 40-54 [facility] Hemoglobin measurementOrdere d By: Renard Burgos on 09-09-2024 Hemoglobin (Bld) [Mass/Vol] 14.6 g/dL 13.0-16.5 [facility] Immature granulocytes/100 WB C Auto (Bld)Ordered By: Renard Burgos on 09-09-2024 Immature granulocytes/100 WBC (Bld) 0.300 % 0.0-0.9 [facility] Comment on above: IG% - Immature Granu locytes (promyelocytes, myelocytes and metamyelocytes) > 1% indicates that a LEFT SHIFT is Present. MCV (mean corpuscular volume ) determinationOrdered By: Renard Burgos on 09-09-2024 MCV (RBC) [Entitic vol] 92.2 fL 80-94 [facility] Mean corpuscular hemoglobin (MCH) determinationOrdered By: Renard Burgos on 09-09-2024 MCH (RBC) [Entitic mass] 30.1 pg 27.0-32.0 [facility] Mean corpuscular hemoglobin concentration (MCHC) determinationOrdered By: Renard Burgos on 09-09-2024 MCHC (RBC) [Mass/Vol] 32.7 g/dL 32-36 [facility] Mean platelet volume determi nationOrdered By: Renard Burgos on 09-09-2024 Platelet mean volume (Bld) [Entitic vol] 11.6 fL 6.2-12.0 [facility] Monocyte percentageOrdered B y: Renard Burgos on 09-09-2024 Monocytes/100 WBC (Bld) 5.1 % 0-10 [facility] Neutrophil percentageOrdered By: Renard Burgos on 09-09-2024 Neutrophils/100 WBC (Bld) 74.6 % High 47-70 [facility] Nucleated red blood cell per centageOrdered By: Renard Burgos on 09-09-2024 Nucleated RBC/100 WBC (Bld) [Ratio] 0 % 0-5 [facility] Platelet countOrdered By: Garrick Bhatt on 09-09-2024 Platelets (Bld) [#/Vol] 189 10*3/uL 150-450 [facility] RBC Auto (Bld) [#/Vol]Ordere d By: Renard Burgos on 09-09-2024 RBC (Bld) [#/Vol] 4.85 10*6/uL 4.6-6.2 [facility] White blood cell (WBC) count Ordered By: Renard Burgos on 09-09-2024 WBC (Bld) [#/Vol] 11.7 10*3/uL High 4.4-11.0 [facility] Absolute lymphocyte countOrd ered By: Renard Burgos on 09-02-2024 Lymphocytes Auto (Unsp spec) [#/Vol] 2.07 10*3/uL 0.83-4.51 [facility] Absolute neutrophil countOrd ered By: Renard Burgos on 09-02-2024 Neutrophils (Bld) [#/Vol] 5.8 10*3/uL 2.0-7.7 [facility] Automated lymphocyte count a s percentage of total leukocytesOrdered By: Renard Burgos on 09-02-2024 Lymphocytes/100 WBC Auto (Unsp spec) 24.4 % 19-41 [facility] Basophil percentageOrdered B y: Renard Burgos on 09-02-2024 Basophils/100 WBC (Bld) 0.6 % 0-1 [facility] CBC W/Diff, Automatedon 05 Absolute Lymph 2.07 X10 3/uL Normal 0.83-4.51 [facility] Comment on above: Order Comment: 109 Performed By: #### L 100.0100 ####[facility] [address] [place], [address] Absolute Neut 5.8 X10 3/uL Normal 2.0-7.7 [facility] Comment on above: Order Comment: 109 Performed By: #### L 100.0100 ####[facility] [address] [place], [address] Basophils/100 WBC (Bld) 0.6 % Normal 0-1 [facility] Comment on above: Order Comment: 109 Performed By: #### L 100.0100 ####[facility] [address] [place], [address] Eosinophils/100 WBC (Bld) 0.7 % Normal 0-5 [facility] Comment on above: Order Comment: 109 Performed By: #### L 100.0100 ####[facility] [address] [place], [address] Erythrocyte distribution width (RBC) [Ratio] 12.8 % Normal 11.6-14.6 [facility] Comment on above: Order Comment: 109 Performed By: #### L 100.0100 ####[facility] [address] [place], [address] Hematocrit (Bld) [Volume fraction] 44.5 % Normal 40-54 [facility] Comment on above: Order Comment: 109 Performed By: #### L 100.0100 ####[facility] [address] [place], [address] Hemoglobin (Bld) [Mass/Vol] 14.9 g/dL Normal 13.0-16.5 [facility] Comment on above: Order Comment: 109 Performed By: #### L 100.0100 ####[facility] [address] [place], [address] IG% 0.400 Normal 0.0-0.9 [facility] Comment on above: Order Comment: 109 Result Comment: IG% - Immature Granulocytes (promyelocytes, myelocytes andmetamyelocytes) > 1% indicates that a LEFT SHIFT is Present. Performed By: #### L 100.0100 ####[facility] [address] [place], [address] Lymphocytes/100 WBC (Bld) 24.4 % Normal 19-41 [facility] Comment on above: Order Comment: 109 Performed By: #### L 100.0100 ####[facility] [address] [place], [address] MCH (RBC) [Entitic mass] 29.9 pg Normal 27.0-32.0 [facility] Comment on above: Order Comment: 109 Performed By: #### L 100.0100 ####[facility] [address] [place], [address] MCHC (RBC) [Mass/Vol] 33.5 g/dL Normal 32-36 [facility] Comment on above: Order Comment: 109 Performed By: #### L 100.0100 ####[facility] [address] [place], [address] MCV (RBC) [Entitic vol] 89.4 fL Normal 80-94 [facility] Comment on above: Order Comment: 109 Performed By: #### L 100.0100 ####[facility] [address] [place], [address] Monocytes/100 WBC (Bld) 5.4 % Normal 0-10 [facility] Comment on above: Order Comment: 109 Performed By: #### L 100.0100 ####[facility] [address] [place], [address] Neutrophils/100 WBC (Bld) 68.5 % Normal 47-70 [facility] Comment on above: Order Comment: 109 Performed By: #### L 100.0100 ####[facility] [address] [place], [address] Nucleated RBC (Bld) [#/Vol] 0 10*3/uL Normal 0-5 [facility] Comment on above: Order Comment: 109 Performed By: #### L 100.0100 ####[facility] [address] [place], [address] Platelet mean volume (Bld) [Entitic vol] 10.7 fL Normal 6.2-12.0 [facility] Comment on above: Order Comment: 109 Performed By: #### L 100.0100 ####[facility] [address] [place], [address] Platelets (Bld) [#/Vol] 189 10*3/uL Normal 150-450 [facility] Comment on above: Order Comment: 109 Performed By: #### L 100.0100 ####[facility] [address] [place], [address] RBC (Bld) [#/Vol] 4.98 10*6/uL Normal 4.6-6.2 [facility] Comment on above: Order Comment: 109 Performed By: #### L 100.0100 ####[facility] [address] [place], [address] RDW SD 41.7 fl Normal 35.1-43.9 [facility] Comment on above: Order Comment: 109 Performed By: #### L 100.0100 ####[facility] [address] [place], [address] WBC (Bld) [#/Vol] 8.5 10*3/uL Normal 4.4-11.0 [facility] Comment on above: Order Comment: 109 Performed By: #### L 100.0100 ####[facility] [address] [place], [address] Eosinophil percentageOrdered By: Renard Burgos on 09-02-2024 Eosinophils/100 WBC (Bld) 0.7 % 0-5 [facility] Erythrocyte distribution wid th ratioOrdered By: Renard Burgos on 09-02-2024 Erythrocyte distribution width (RBC) [Ratio] 12.8 % 11.6-14.6 [facility] Erythrocyte distribution wid th standard deviationOrdered By: Renard Burgos on 09-02-2024 Erythrocyte distribution width (RBC) [Ratio] 41.7 fl 35.1-43.9 [facility] Hematocrit Auto (Bld) [Volum e fraction]Ordered By: Renard Burgos on 09-02-2024 Hematocrit (Bld) [Volume fraction] 44.5 % 40-54 [facility] Hemoglobin measurementOrdere d By: Renard Burgos on 09-02-2024 Hemoglobin (Bld) [Mass/Vol] 14.9 g/dL 13.0-16.5 [facility] Immature granulocytes/100 WB C Auto (Bld)Ordered By: Renard Burgos on 09-02-2024 Immature granulocytes/100 WBC (Bld) 0.400 % 0.0-0.9 [facility] Comment on above: IG% - Immature Granu locytes (promyelocytes, myelocytes and metamyelocytes) > 1% indicates that a LEFT SHIFT is Present. MCV (mean corpuscular volume ) determinationOrdered By: Renard Burgos on 09-02-2024 MCV (RBC) [Entitic vol] 89.4 fL 80-94 [facility] Mean corpuscular hemoglobin (MCH) determinationOrdered By: Renard Burgos on 09-02-2024 MCH (RBC) [Entitic mass] 29.9 pg 27.0-32.0 [facility] Mean corpuscular hemoglobin concentration (MCHC) determinationOrdered By: Renard Burgos on 09-02-2024 MCHC (RBC) [Mass/Vol] 33.5 g/dL 32-36 [facility] Mean platelet volume determi nationOrdered By: Renard Burgos on 09-02-2024 Platelet mean volume (Bld) [Entitic vol] 10.7 fL 6.2-12.0 [facility] Monocyte percentageOrdered B y: Renard Burgos on 09-02-2024 Monocytes/100 WBC (Bld) 5.4 % 0-10 [facility] Neutrophil percentageOrdered By: Renard Burgos on 09-02-2024 Neutrophils/100 WBC (Bld) 68.5 % 47-70 [facility] Nucleated red blood cell per centageOrdered By: Renard Burgos on 09-02-2024 Nucleated RBC/100 WBC (Bld) [Ratio] 0 % 0-5 [facility] Platelet countOrdered By: Garrick Bhatt on 09-02-2024 Platelets (Bld) [#/Vol] 189 10*3/uL 150-450 [facility] RBC Auto (Bld) [#/Vol]Ordere d By: Renard Burgos on 09-02-2024 RBC (Bld) [#/Vol] 4.98 10*6/uL 4.6-6.2 [facility] White blood cell (WBC) count Ordered By: Renard Burgos on 09-02-2024 WBC (Bld) [#/Vol] 8.5 10*3/uL 4.4-11.0 [facility] Absolute lymphocyte countOrd ered By: Renard Burgos on 08-26-2024 Lymphocytes Auto (Unsp spec) [#/Vol] 2.17 10*3/uL 0.83-4.51 [facility] Absolute neutrophil countOrd ered By: Renard Burgos on 08-26-2024 Neutrophils (Bld) [#/Vol] 5.7 10*3/uL 2.0-7.7 [facility] Automated lymphocyte count a s percentage of total leukocytesOrdered By: Renard Burgos on 08-26-2024 Lymphocytes/100 WBC Auto (Unsp spec) 25.1 % 19-41 [facility] Basophil percentageOrdered B y: Renard Burgos on 08-26-2024 Basophils/100 WBC (Bld) 0.6 % 0-1 [facility] CBC W/Diff, Automatedon 07-31 Absolute Lymph 2.17 X10 3/uL Normal 0.83-4.51 [facility] Comment on above: Order Comment: 109-1 Performed By: #### L 100.0100 ####[facility] [address] [place], [address] Absolute Neut 5.7 X10 3/uL Normal 2.0-7.7 [facility] Comment on above: Order Comment: 109-1 Performed By: #### L 100.0100 ####[facility] [address] [place], [address] Basophils/100 WBC (Bld) 0.6 % Normal 0-1 [facility] Comment on above: Order Comment: 109-1 Performed By: #### L 100.0100 ####[facility] [address] [place], [address] Eosinophils/100 WBC (Bld) 0.8 % Normal 0-5 [facility] Comment on above: Order Comment: 109-1 Performed By: #### L 100.0100 ####[facility] [address] [place], [address] Erythrocyte distribution width (RBC) [Ratio] 12.7 % Normal 11.6-14.6 [facility] Comment on above: Order Comment: 109-1 Performed By: #### L 100.0100 ####[facility] [address] [place], [address] Hematocrit (Bld) [Volume fraction] 41.8 % Normal 40-54 [facility] Comment on above: Order Comment: 109-1 Performed By: #### L 100.0100 ####[facility] [address] [place], [address] Hemoglobin (Bld) [Mass/Vol] 13.8 g/dL Normal 13.0-16.5 [facility] Comment on above: Order Comment: 109-1 Performed By: #### L 100.0100 ####[facility] [address] [place], [address] IG% 0.200 Normal 0.0-0.9 [facility] Comment on above: Order Comment: 109-1 Result Comment: IG% - Immature Granulocytes (promyelocytes, myelocytes andmetamyelocytes) > 1% indicates that a LEFT SHIFT is Present. Performed By: #### L 100.0100 ####[facility] [address] [place], [address] Lymphocytes/100 WBC (Bld) 25.1 % Normal 19-41 [facility] Comment on above: Order Comment: 109-1 Performed By: #### L 100.0100 ####[facility] [address] [place], [address] MCH (RBC) [Entitic mass] 29.7 pg Normal 27.0-32.0 [facility] Comment on above: Order Comment: 109-1 Performed By: #### L 100.0100 ####[facility] [address] [place], [address] MCHC (RBC) [Mass/Vol] 33.0 g/dL Normal 32-36 [facility] Comment on above: Order Comment: 109-1 Performed By: #### L 100.0100 ####[facility] [address] [place], [address] MCV (RBC) [Entitic vol] 90.1 fL Normal 80-94 [facility] Comment on above: Order Comment: 109-1 Performed By: #### L 100.0100 ####[facility] [address] [place], [address] Monocytes/100 WBC (Bld) 7.4 % Normal 0-10 [facility] Comment on above: Order Comment: 109-1 Performed By: #### L 100.0100 ####[facility] [address] [place], [address] Neutrophils/100 WBC (Bld) 65.9 % Normal 47-70 [facility] Comment on above: Order Comment: 109-1 Performed By: #### L 100.0100 ####[facility] [address] [place], [address] Nucleated RBC (Bld) [#/Vol] 0 10*3/uL Normal 0-5 [facility] Comment on above: Order Comment: 109-1 Performed By: #### L 100.0100 ####[facility] [address] [place], [address] Platelet mean volume (Bld) [Entitic vol] 11.3 fL Normal 6.2-12.0 [facility] Comment on above: Order Comment: 109-1 Performed By: #### L 100.0100 ####[facility] [address] [place], [address] Platelets (Bld) [#/Vol] 196 10*3/uL Normal 150-450 [facility] Comment on above: Order Comment: 109-1 Performed By: #### L 100.0100 ####[facility] [address] [place], [address] RBC (Bld) [#/Vol] 4.64 10*6/uL Normal 4.6-6.2 [facility] Comment on above: Order Comment: 109-1 Performed By: #### L 100.0100 ####[facility] [address] [place], [address] RDW SD 41.3 fl Normal 35.1-43.9 [facility] Comment on above: Order Comment: 109-1 Performed By: #### L 100.0100 ####[facility] [address] [place], [address] WBC (Bld) [#/Vol] 8.6 10*3/uL Normal 4.4-11.0 [facility] Comment on above: Order Comment: 109-1 Performed By: #### L 100.0100 ####[facility] [address] [place], [address] Eosinophil percentageOrdered By: Renard Burgos on 08-26-2024 Eosinophils/100 WBC (Bld) 0.8 % 0-5 [facility] Erythrocyte distribution wid th ratioOrdered By: Renard Burgos on 08-26-2024 Erythrocyte distribution width (RBC) [Ratio] 12.7 % 11.6-14.6 [facility] Erythrocyte distribution wid th standard deviationOrdered By: Renard Burgos on 08-26-2024 Erythrocyte distribution width (RBC) [Ratio] 41.3 fl 35.1-43.9 [facility] Hematocrit Auto (Bld) [Volum e fraction]Ordered By: Renard Burgos on 08-26-2024 Hematocrit (Bld) [Volume fraction] 41.8 % 40-54 [facility] Hemoglobin measurementOrdere d By: Renard Burgos on 08-26-2024 Hemoglobin (Bld) [Mass/Vol] 13.8 g/dL 13.0-16.5 [facility] Immature granulocytes/100 WB C Auto (Bld)Ordered By: Renard Burgos on 08-26-2024 Immature granulocytes/100 WBC (Bld) 0.200 % 0.0-0.9 [facility] Comment on above: IG% - Immature Granu locytes (promyelocytes, myelocytes and metamyelocytes) > 1% indicates that a LEFT SHIFT is Present. MCV (mean corpuscular volume ) determinationOrdered By: Renard Burgos on 08-26-2024 MCV (RBC) [Entitic vol] 90.1 fL 80-94 [facility] Mean corpuscular hemoglobin (MCH) determinationOrdered By: Renard Burgos on 08-26-2024 MCH (RBC) [Entitic mass] 29.7 pg 27.0-32.0 [facility] Mean corpuscular hemoglobin concentration (MCHC) determinationOrdered By: Renard Burgos on 08-26-2024 MCHC (RBC) [Mass/Vol] 33.0 g/dL 32-36 [facility] Mean platelet volume determi nationOrdered By: Renard Burgos on 08-26-2024 Platelet mean volume (Bld) [Entitic vol] 11.3 fL 6.2-12.0 [facility] Monocyte percentageOrdered B y: Renard Burgos on 08-26-2024 Monocytes/100 WBC (Bld) 7.4 % 0-10 [facility] Neutrophil percentageOrdered By: Renard Burgos on 08-26-2024 Neutrophils/100 WBC (Bld) 65.9 % 47-70 [facility] Nucleated red blood cell per centageOrdered By: Renard Burgos on 08-26-2024 Nucleated RBC/100 WBC (Bld) [Ratio] 0 % 0-5 [facility] Platelet countOrdered By: Garrick Bhatt on 08-26-2024 Platelets (Bld) [#/Vol] 196 10*3/uL 150-450 [facility] RBC Auto (Bld) [#/Vol]Ordere d By: Renard Burgos on 08-26-2024 RBC (Bld) [#/Vol] 4.64 10*6/uL 4.6-6.2 [facility] White blood cell (WBC) count Ordered By: Renard Burgos on 08-26-2024 WBC (Bld) [#/Vol] 8.6 10*3/uL 4.4-11.0 [facility] Anion gap in Serum or Plasma Ordered By: Renard Burgos on 08-23-2024 Anion gap [Moles/Vol] 10 mmol/L 5-15 [facility] BUN/creatinine ratioOrdered By: Renard Burgos on 08-23-2024 Urea nitrogen/Creatinine [Mass ratio] 21.4 mg/mg High 10-20 [facility] Bilirubin, totalOrdered By: Renard Burgos on 08-23-2024 Bilirubin [Mass/Vol] 0.35 mg/dL 0.00-1.30 [facility] CBC-Complete Blood Cnt No Di ffon 08-23-2024 Erythrocyte distribution width (RBC) [Ratio] 12.7 % Normal 11.6-14.6 [facility] Comment on above: Order Comment: 109.1 Performed By: #### L 500.4100, L100.0500, L500.4050 ####[facility] [address] [place], [address] Hematocrit (Bld) [Volume fraction] 42.2 % Normal 40-54 [facility] Comment on above: Order Comment: 109.1 Performed By: #### L 500.4100, L100.0500, L500.4050 ####[facility] [address] [place], [address] Hemoglobin (Bld) [Mass/Vol] 14.0 g/dL Normal 13.0-16.5 [facility] Comment on above: Order Comment: 109.1 Performed By: #### L 500.4100, L100.0500, L500.4050 ####[facility] [address] [place], [address] MCH (RBC) [Entitic mass] 30.0 pg Normal 27.0-32.0 [facility] Comment on above: Order Comment: 109.1 Performed By: #### L 500.4100, L100.0500, L500.4050 ####[facility] [address] [place], [address] MCHC (RBC) [Mass/Vol] 33.2 g/dL Normal 32-36 [facility] Comment on above: Order Comment: 109.1 Performed By: #### L 500.4100, L100.0500, L500.4050 ####[facility] [address] [place], [address] MCV (RBC) [Entitic vol] 90.6 fL Normal 80-94 [facility] Comment on above: Order Comment: 109.1 Performed By: #### L 500.4100, L100.0500, L500.4050 ####[facility] [address] [place], [address] Platelet mean volume (Bld) [Entitic vol] 11.3 fL Normal 6.2-12.0 [facility] Comment on above: Order Comment: 109.1 Performed By: #### L 500.4100, L100.0500, L500.4050 ####[facility] [address] [place], [address] Platelets (Bld) [#/Vol] 184 10*3/uL Normal 150-450 [facility] Comment on above: Order Comment: 109.1 Performed By: #### L 500.4100, L100.0500, L500.4050 ####[facility] [address] [place], [address] RBC (Bld) [#/Vol] 4.66 10*6/uL Normal 4.6-6.2 [facility] Comment on above: Order Comment: 109.1 Performed By: #### L 500.4100, L100.0500, L500.4050 ####[facility] [address] [place], [address] RDW SD 41.8 fl Normal 35.1-43.9 [facility] Comment on above: Order Comment: 109.1 Performed By: #### L 500.4100, L100.0500, L500.4050 ####[facility] [address] [place], [address] WBC (Bld) [#/Vol] 8.6 10*3/uL Normal 4.4-11.0 [facility] Comment on above: Order Comment: 109.1 Performed By: #### L 500.4100, L100.0500, L500.4050 ####[facility] [address] [place], [address] Calculated very low density lipoprotein (VLDL) cholesterol measurementOrdered By: Renard Burgos on 08-23-2024 Calculated very low density lipoprotein (VLDL) cholesterol measurement 40 mg/dL 5-40 [facility] Carbon dioxide, total [Moles /volume] in Central venous bloodOrdered By: Renard Burgos on 08-23-2024 CO2 [Moles/Vol] 24.9 mmol/L 21.0-32.0 [facility] Chloride assayOrdered By: Garrick Bhatt on 08-23-2024 Chloride [Moles/Vol] 106 mmol/L 98-108 [facility] Comprehensive Metabolic Prof ilon 08-23-2024 Albumin [Mass/Vol] 3.4 g/dL Normal 3.4-4.8 [facility] Comment on above: Order Comment: 109.1 Performed By: #### L 500.4100, L100.0500, L500.4050 ####[facility] [address] [place], [address] Albumin/Globulin [Mass ratio] 1.4 {ratio} Normal 0.9-2.4 [facility] Comment on above: Order Comment: 109.1 Performed By: #### L 500.4100, L100.0500, L500.4050 ####[facility] [address] [place], [address] ALK PHOS 101 U/L Normal 40-129 [facility] Comment on above: Order Comment: 109.1 Performed By: #### L 500.4100, L100.0500, L500.4050 ####[facility] [address] [place], [address] ALT [Catalytic activity/Vol] 13 U/L Normal <=46 [facility] Comment on above: Order Comment: 109.1 Performed By: #### L 500.4100, L100.0500, L500.4050 ####[facility] [address] [place], [address] AST [Catalytic activity/Vol] 17 U/L Normal <=37 [facility] Comment on above: Order Comment: 109.1 Performed By: #### L 500.4100, L100.0500, L500.4050 ####[facility] [address] [place], [address] Bilirubin [Mass/Vol] 0.35 mg/dL Normal 0.00-1.30 [facility] Comment on above: Order Comment: 109.1 Performed By: #### L 500.4100, L100.0500, L500.4050 ####[facility] [address] [place], [address] BUN/CRE 21.4 RATIO High 10-20 [facility] Comment on above: Order Comment: 109.1 Performed By: #### L 500.4100, L100.0500, L500.4050 ####[facility] [address] [place], [address] Calcium [Mass/Vol] 8.2 mg/dL Normal 7.6-11.0 [facility] Comment on above: Order Comment: 109.1 Performed By: #### L 500.4100, L100.0500, L500.4050 ####[facility] [address] [place], [address] Chloride [Moles/Vol] 106 mmol/L Normal 98-108 [facility] Comment on above: Order Comment: 109.1 Performed By: #### L 500.4100, L100.0500, L500.4050 ####[facility] [id number] [place], [address] CO2 [Moles/Vol] 24.9 mmol/L Normal 21.0-32.0 [facility] Comment on above: Order Comment: 109.1 Performed By: #### L 500.4100, L100.0500, L500.4050 ####[facility] [id number] [place], [address] Creatinine [Mass/Vol] 0.63 mg/dL Low 0.70-1.20 [facility] Comment on above: Order Comment: 109.1 Performed By: #### L 500.4100, L100.0500, L500.4050 ####[facility] [address] [place], [address] GAP 10 Normal 5-15 [facility] Comment on above: Order Comment: 109.1 Performed By: #### L 500.4100, L100.0500, L500.4050 ####[facility] [address] [place], [address] GFR/1.73 sq M.predicted among non-blacks MDRD (S/P/Bld) [Vol rate/Area] 104 mL/min/{1.73_m2} Normal >60 [facility] Comment on above: Order Comment: 109.1 Result Comment: mL/m in/1.73m2 CKD-EPI Creatinine Equation (2020) Performed By: #### L 500.4100, L100.0500, L500.4050 ####[facility] [address] [place], [address] Globulin (S) [Mass/Vol] 2.3 g/dL Normal 2.2-4.2 [facility] Comment on above: Order Comment: 109.1 Performed By: #### L 500.4100, L100.0500, L500.4050 ####[facility] [address] [place], [address] Glucose [Mass/Vol] 116 mg/dL High 70-99 [facility] Comment on above: Order Comment: 109.1 Performed By: #### L 500.4100, L100.0500, L500.4050 ####[facility] [address] [place], [address] Potassium [Moles/Vol] 3.8 mmol/L Normal 3.3-5.1 [facility] Comment on above: Order Comment: 109.1 Performed By: #### L 500.4100, L100.0500, L500.4050 ####[facility] [address] [place], [address] Sodium [Moles/Vol] 141 mmol/L Normal 133-145 [facility] Comment on above: Order Comment: 109.1 Performed By: #### L 500.4100, L100.0500, L500.4050 ####[facility] [address] [place], [address] T PROT 5.7 g/dL Low 5.9-8.4 [facility] Comment on above: Order Comment: 109.1 Performed By: #### L 500.4100, L100.0500, L500.4050 ####[facility] [address] [place], [address] Urea nitrogen [Mass/Vol] 14 mg/dL Normal 4-19 [facility] Comment on above: Order Comment: 109.1 Performed By: #### L 500.4100, L100.0500, L500.4050 ####[facility] [address] [place], [address] Erythrocyte distribution wid th ratioOrdered By: Renard Burgos on 08-23-2024 Erythrocyte distribution width (RBC) [Ratio] 12.7 % 11.6-14.6 [facility] Erythrocyte distribution wid th standard deviationOrdered By: Renard Burgos on 08-23-2024 Erythrocyte distribution width (RBC) [Ratio] 41.8 fl 35.1-43.9 [facility] Glomerular filtration rate ( GFR) estimation/1.73 sq m using serum, plasma, or whole bOrdered By: Renard Burgos on 08-23-2024 GFR/1.73 sq M.predicted among non-blacks MDRD (S/P/Bld) [Vol rate/Area] 104 mL/min/{1.73_m2} >60 [facility] Comment on above: mL/min/1.73m2 CKD-EP I Creatinine Equation (2020) Hematocrit Auto (Bld) [Volum e fraction]Ordered By: Renard Burgos on 08-23-2024 Hematocrit (Bld) [Volume fraction] 42.2 % 40-54 [facility] Hemoglobin measurementOrdere d By: Renard Burgos on 08-23-2024 Hemoglobin (Bld) [Mass/Vol] 14.0 g/dL 13.0-16.5 [facility] LDL calc ser/plasOrdered By: Renard Burgso on 08-23-2024 Cholesterol in LDL [Mass/Vol] 62 mg/dL [facility] Comment on above: Znjedyzkzv=914-303 m g/dL & Higher Rurn=588 mg/dL or greater Laboratory - Chemistry and C hemistry - challengeOrdered By: Renard Burgos on 08-23-2024 AST [Catalytic activity/Vol] 17 U/L <38 [facility] Lipid Profileon 08-23-2024 CHOL:HDL 5.32 Normal [facility] Comment on above: Order Comment: 109.1 Performed By: #### L 500.4100, L100.0500, L500.4050 ####[facility] [address] [place], [address] Cholesterol [Mass/Vol] 125 mg/dL Normal <=200 [facility] Comment on above: Order Comment: 109.1 Result Comment: Chol esterol level, Desirable <200 mg/dLBorderline high cholesterol 200-239 mg/dLHigh cholesterol >=240 mg/dLRecommendations of the NCEP Adult Treatment Panel for thefollowing risk-cutoff thresholds for the [place] American[place]. Performed By: #### L 500.4100, L100.0500, L500.4050 ####[facility] [address] [place], [address] Cholesterol in HDL [Mass/Vol] 24 mg/dL Low [facility] Comment on above: Order Comment: 109.1 Result Comment: Lucy onal Cholesterol Education Program (NCEP) guidelines:<40 mg/dL: Low HDL-cholesterol (major risk factor for CHD)>= 60 mg/dL: High HDL-cholesterol (negative risk factor forCHD)HDL-cholesterol is affected by a number of factors, e.g.smoking, exercise, hormones, sex and age. Performed By: #### L 500.4100, L100.0500, L500.4050 ####[facility] [address] [place], [address] Cholesterol in LDL [Mass/Vol] 62 mg/dL Normal [facility] Comment on above: Order Comment: 109.1 Result Comment: Bord doiimc=925-436 mg/dL Higher Lzlt=096 mg/dL or greater Performed By: #### L 500.4100, L100.0500, L500.4050 ####[facility] [address] [place], [address] Cholesterol in VLDL [Mass/Vol] 40 mg/dL Normal 5-40 [facility] Comment on above: Order Comment: 109.1 Performed By: #### L 500.4100, L100.0500, L500.4050 ####[facility] [address] [place], [address] Triglyceride [Mass/Vol] 198 mg/dL Normal [facility] Comment on above: Order Comment: 109.1 Result Comment: The drugs N-Acetylcysteine and Metamizole may falselydepress this assay.Normal range: <150 mg/dLBorderline High: 150-199 mg/dLHigh: 200-499 mg/dLVery High: >500 mg/dL Performed By: #### L 500.4100, L100.0500, L500.4050 ####[facility] [address] [place], [address] MCV (mean corpuscular volume ) determinationOrdered By: Renard Burgos on 08-23-2024 MCV (RBC) [Entitic vol] 90.6 fL 80-94 [facility] Mean corpuscular hemoglobin (MCH) determinationOrdered By: Renard Burgos on 08-23-2024 MCH (RBC) [Entitic mass] 30.0 pg 27.0-32.0 [facility] Mean corpuscular hemoglobin concentration (MCHC) determinationOrdered By: Renard Burgos on 08-23-2024 MCHC (RBC) [Mass/Vol] 33.2 g/dL 32-36 [facility] Mean platelet volume determi nationOrdered By: Renard Burgos on 08-23-2024 Platelet mean volume (Bld) [Entitic vol] 11.3 fL 6.2-12.0 [facility] Platelet countOrdered By: Garrick Bhatt on 08-23-2024 Platelets (Bld) [#/Vol] 184 10*3/uL 150-450 [facility] Potassium measurement (mass/ volume)Ordered By: Renard Burgos on 08-23-2024 Potassium (Unsp spec) [Mass/Vol] 3.8 mmol/L 3.3-5.1 [facility] RBC Auto (Bld) [#/Vol]Ordere d By: Renard Burgos on 08-23-2024 RBC (Bld) [#/Vol] 4.66 10*6/uL 4.6-6.2 [facility] Screening total cholesterol/ high density lipoprotein (HDL) cholesterol ratioOrdered By: Renard Burgos on 08-23-2024 Cholesterol.total/Cecilia sterol in HDL [Mass ratio] 5.32 {ratio} [facility] Serum creatinine measurement (mass/volume)Ordered By: Renard Burgos on 08-23-2024 Creatinine [Mass/Vol] 0.63 mg/dL Low 0.70-1.20 [facility] Serum globulin measurementOr dered By: Renard Burgos on 08-23-2024 Globulin (S) [Mass/Vol] 2.3 g/dL 2.2-4.2 [facility] Serum glucose measurement (m ass/volume)Ordered By: Renard Burgos on 08-23-2024 Glucose [Mass/Vol] 116 mg/dL High 70-99 [facility] Serum or plasma alanine kay otransferase (ALT) measurementOrdered By: Renard Burgos on 08-23-2024 ALT [Catalytic activity/Vol] 13 U/L <47 [facility] Serum or plasma albumin gordy urement (mass/volume)Ordered By: Renard Burgos on 08-23-2024 Albumin [Mass/Vol] 3.4 g/dL 3.4-4.8 [facility] Serum or plasma albumin/glob ulin mass ratioOrdered By: Renard Burgos on 08-23-2024 Albumin/Globulin [Mass ratio] 1.4 {ratio} 0.9-2.4 [facility] Serum or plasma alkaline trace sphatase measurementOrdered By: Renard Burgos on 08-23-2024 ALP [Catalytic activity/Vol] 101 U/L 40-129 [facility] Serum or plasma calcium gordy urement (mass/volume)Ordered By: Renard Burgos on 08-23-2024 Calcium [Mass/Vol] 8.2 mg/dL 7.6-11.0 [facility] Serum or plasma cholesterol in HDL measurement (mass/volume)Ordered By: Renard Burgos on 08-23-2024 Cholesterol in HDL [Mass/Vol] 24 mg/dL Low >40 [facility] Comment on above: National Cholesterol Education Program (NCEP) guidelines:<40 mg/dL: Low HDL-cholesterol (major risk factor for CHD)>= 60 mg/dL: High HDL-cholesterol (negative risk factor for CHD)HDL-cholesterol is affected by a number of factors, e.g. smoking, exercise, hormones, sex and age. Serum or plasma cholesterol measurement (mass/volume)Ordered By: Renard Burgos on 08-23-2024 Cholesterol [Mass/Vol] 125 mg/dL <201 [facility] Comment on above: Cholesterol level, D esirable <200 mg/dLBorderline high cholesterol 200-239 mg/dLHigh cholesterol >=240 mg/dLRecommendations of the NCEP Adult Treatment Panel for the following risk-cutoff thresholds for the [place] population. Serum or plasma urea nitroge n measurement (mass/volume)Ordered By: Renard Burgos on 08-23-2024 Urea nitrogen [Mass/Vol] 14 mg/dL 4-19 [facility] Sodium levelOrdered By: Lamine Burgos on 08-23-2024 Sodium [Moles/Vol] 141 mmol/L 133-145 [facility] Total proteinOrdered By: Lyubov Burgos on 08-23-2024 Protein [Mass/Vol] 5.7 g/dL Low 5.9-8.4 [facility] Triglycerides measurementOrd ered By: Renard Burgos on 08-23-2024 Triglyceride [Mass/Vol] 198 mg/dL <199 [facility] Comment on above: The drugs N-Acetylcy steine and Metamizole may falsely depress this assay. Normal range: <150 mg/dLBorderline High: 150-199 mg/dLHigh: 200-499 mg/dLVery High: >500 mg/dL White blood cell (WBC) count Ordered By: Renard Burgos on 08-23-2024 WBC (Bld) [#/Vol] 8.6 10*3/uL 4.4-11.0 [facility] Absolute lymphocyte countOrd ered By: Renard Burgos on 08-19-2024 Lymphocytes Auto (Unsp spec) [#/Vol] 1.97 10*3/uL 0.83-4.51 [facility] Absolute neutrophil countOrd ered By: Renard Burgos on 08-19-2024 Neutrophils (Bld) [#/Vol] 5.0 10*3/uL 2.0-7.7 [facility] Automated lymphocyte count a s percentage of total leukocytesOrdered By: Renard Burgos on 08-19-2024 Lymphocytes/100 WBC Auto (Unsp spec) 25.4 % 19-41 [facility] Basophil percentageOrdered B y: Renard Burgos on 08-19-2024 Basophils/100 WBC (Bld) 0.5 % 0-1 [facility] CBC W/Diff, Automatedon 07-31 Absolute Lymph 1.97 X10 3/uL Normal 0.83-4.51 [facility] Comment on above: Order Comment: 109 Performed By: #### L 100.0100 ####[facility] [address] [facility] [address] Absolute Neut 5.0 X10 3/uL Normal 2.0-7.7 [facility] Comment on above: Order Comment: 109 Performed By: #### L 100.0100 ####[facility] [address] [facility] [address] Basophils/100 WBC (Bld) 0.5 % Normal 0-1 [facility] Comment on above: Order Comment: 109 Performed By: #### L 100.0100 ####[facility] [address] [place], [address] Eosinophils/100 WBC (Bld) 1.0 % Normal 0-5 [facility] Comment on above: Order Comment: 109 Performed By: #### L 100.0100 ####[facility] [address] [place], [address] Erythrocyte distribution width (RBC) [Ratio] 12.7 % Normal 11.6-14.6 [facility] Comment on above: Order Comment: 109 Performed By: #### L 100.0100 ####[facility] [address] [place], [address] Hematocrit (Bld) [Volume fraction] 41.0 % Normal 40-54 [facility] Comment on above: Order Comment: 109 Performed By: #### L 100.0100 ####[facility] [address] [place], [address] Hemoglobin (Bld) [Mass/Vol] 13.6 g/dL Normal 13.0-16.5 [facility] Comment on above: Order Comment: 109 Performed By: #### L 100.0100 ####[facility] [address] [place], [address] IG% 0.400 Normal 0.0-0.9 [facility] Comment on above: Order Comment: 109 Result Comment: IG% - Immature Granulocytes (promyelocytes, myelocytes andmetamyelocytes) > 1% indicates that a LEFT SHIFT is Present. Performed By: #### L 100.0100 ####[facility] [address] [place], [address] Lymphocytes/100 WBC (Bld) 25.4 % Normal 19-41 [facility] Comment on above: Order Comment: 109 Performed By: #### L 100.0100 ####[facility] [address] [place], [address] MCH (RBC) [Entitic mass] 30.2 pg Normal 27.0-32.0 [facility] Comment on above: Order Comment: 109 Performed By: #### L 100.0100 ####[facility] [address] [place], [address] MCHC (RBC) [Mass/Vol] 33.2 g/dL Normal 32-36 [facility] Comment on above: Order Comment: 109 Performed By: #### L 100.0100 ####[facility] [address] [place], [address] MCV (RBC) [Entitic vol] 91.1 fL Normal 80-94 [facility] Comment on above: Order Comment: 109 Performed By: #### L 100.0100 ####[facility] [address] [place], [address] Monocytes/100 WBC (Bld) 8.2 % Normal 0-10 [facility] Comment on above: Order Comment: 109 Performed By: #### L 100.0100 ####[facility] [address] [place], [address] Neutrophils/100 WBC (Bld) 64.5 % Normal 47-70 [facility] Comment on above: Order Comment: 109 Performed By: #### L 100.0100 ####[facility] [address] [place], [address] Nucleated RBC (Bld) [#/Vol] 0 10*3/uL Normal 0-5 [facility] Comment on above: Order Comment: 109 Performed By: #### L 100.0100 ####[facility] [address] [place], [address] Platelet mean volume (Bld) [Entitic vol] 11.1 fL Normal 6.2-12.0 [facility] Comment on above: Order Comment: 109 Performed By: #### L 100.0100 ####[facility] [address] [place], [address] Platelets (Bld) [#/Vol] 207 10*3/uL Normal 150-450 [facility] Comment on above: Order Comment: 109 Performed By: #### L 100.0100 ####[facility] [address] [place], [address] RBC (Bld) [#/Vol] 4.50 10*6/uL Low 4.6-6.2 [facility] Comment on above: Order Comment: 109 Performed By: #### L 100.0100 ####[facility] [address] [place], [address] RDW SD 42.0 fl Normal 35.1-43.9 [facility] Comment on above: Order Comment: 109 Performed By: #### L 100.0100 ####[facility] [address] [place], [address] WBC (Bld) [#/Vol] 7.8 10*3/uL Normal 4.4-11.0 [facility] Comment on above: Order Comment: 109 Performed By: #### L 100.0100 ####[facility] [address] [place], [address] Eosinophil percentageOrdered By: Renard Burgos on 08-19-2024 Eosinophils/100 WBC (Bld) 1.0 % 0-5 [facility] Erythrocyte distribution wid th ratioOrdered By: Renard Burgos on 08-19-2024 Erythrocyte distribution width (RBC) [Ratio] 12.7 % 11.6-14.6 [facility] Erythrocyte distribution wid th standard deviationOrdered By: Renard Burgos on 08-19-2024 Erythrocyte distribution width (RBC) [Ratio] 42.0 fl 35.1-43.9 [facility] Hematocrit Auto (Bld) [Volum e fraction]Ordered By: Renard Burgos on 08-19-2024 Hematocrit (Bld) [Volume fraction] 41.0 % 40-54 [facility] Hemoglobin measurementOrdere d By: Renard Burgos on 08-19-2024 Hemoglobin (Bld) [Mass/Vol] 13.6 g/dL 13.0-16.5 [facility] Immature granulocytes/100 WB C Auto (Bld)Ordered By: Renard Burgos on 08-19-2024 Immature granulocytes/100 WBC (Bld) 0.400 % 0.0-0.9 [facility] Comment on above: IG% - Immature Granu locytes (promyelocytes, myelocytes and metamyelocytes) > 1% indicates that a LEFT SHIFT is Present. MCV (mean corpuscular volume ) determinationOrdered By: Renard Burgos on 08-19-2024 MCV (RBC) [Entitic vol] 91.1 fL 80-94 [facility] Mean corpuscular hemoglobin (MCH) determinationOrdered By: Renard Burgos on 08-19-2024 MCH (RBC) [Entitic mass] 30.2 pg 27.0-32.0 [facility] Mean corpuscular hemoglobin concentration (MCHC) determinationOrdered By: Renard Burgos on 08-19-2024 MCHC (RBC) [Mass/Vol] 33.2 g/dL 32-36 [facility] Mean platelet volume determi nationOrdered By: Renard Burgos on 08-19-2024 Platelet mean volume (Bld) [Entitic vol] 11.1 fL 6.2-12.0 [facility] Monocyte percentageOrdered B y: Renard Burgos on 08-19-2024 Monocytes/100 WBC (Bld) 8.2 % 0-10 [facility] Neutrophil percentageOrdered By: Renard Burgos on 08-19-2024 Neutrophils/100 WBC (Bld) 64.5 % 47-70 [facility] Nucleated red blood cell per centageOrdered By: Renard Burgos on 08-19-2024 Nucleated RBC/100 WBC (Bld) [Ratio] 0 % 0-5 [facility] Platelet countOrdered By: Garrick Bhatt on 08-19-2024 Platelets (Bld) [#/Vol] 207 10*3/uL 150-450 [facility] RBC Auto (Bld) [#/Vol]Ordere d By: Renard Burgos on 08-19-2024 RBC (Bld) [#/Vol] 4.50 10*6/uL Low 4.6-6.2 [facility] White blood cell (WBC) count Ordered By: Renard Burgos on 08-19-2024 WBC (Bld) [#/Vol] 7.8 10*3/uL 4.4-11.0 [facility] Absolute lymphocyte countOrd ered By: Renard Burgos on 08-12-2024 Lymphocytes Auto (Unsp spec) [#/Vol] 2.09 10*3/uL 0.83-4.51 [facility] Absolute neutrophil countOrd ered By: Renard Burgos on 08-12-2024 Neutrophils (Bld) [#/Vol] 5.0 10*3/uL 2.0-7.7 [facility] Automated lymphocyte count a s percentage of total leukocytesOrdered By: Renard Burgos on 08-12-2024 Lymphocytes/100 WBC Auto (Unsp spec) 27.0 % 19-41 [facility] Basophil percentageOrdered B y: Renard Burgos on 08-12-2024 Basophils/100 WBC (Bld) 0.5 % 0-1 [facility] CBC W/Diff, Automatedon 07-30 Absolute Lymph 2.09 X10 3/uL Normal 0.83-4.51 [facility] Comment on above: Order Comment: 109.1 Performed By: #### L 100.0100 ####[facility] [address] [place], [address] Absolute Neut 5.0 X10 3/uL Normal 2.0-7.7 [facility] Comment on above: Order Comment: 109.1 Performed By: #### L 100.0100 ####[facility] [address] [place], [address] Basophils/100 WBC (Bld) 0.5 % Normal 0-1 [facility] Comment on above: Order Comment: 109.1 Performed By: #### L 100.0100 ####[facility] [address] [place], [address] Eosinophils/100 WBC (Bld) 0.9 % Normal 0-5 [facility] Comment on above: Order Comment: 109.1 Performed By: #### L 100.0100 ####[facility] [address] [place], [address] Erythrocyte distribution width (RBC) [Ratio] 12.7 % Normal 11.6-14.6 [facility] Comment on above: Order Comment: 109.1 Performed By: #### L 100.0100 ####[facility] [address] [place], [address] Hematocrit (Bld) [Volume fraction] 41.9 % Normal 40-54 [facility] Comment on above: Order Comment: 109.1 Performed By: #### L 100.0100 ####[facility] [address] [place], [address] Hemoglobin (Bld) [Mass/Vol] 14.1 g/dL Normal 13.0-16.5 [facility] Comment on above: Order Comment: 109.1 Performed By: #### L 100.0100 ####[facility] [address] [place], [address] IG% 0.300 Normal 0.0-0.9 [facility] Comment on above: Order Comment: 109.1 Result Comment: IG% - Immature Granulocytes (promyelocytes, myelocytes andmetamyelocytes) > 1% indicates that a LEFT SHIFT is Present. Performed By: #### L 100.0100 ####[facility] [address] [place], [address] Lymphocytes/100 WBC (Bld) 27.0 % Normal 19-41 [facility] Comment on above: Order Comment: 109.1 Performed By: #### L 100.0100 ####[facility] [address] [place], [address] MCH (RBC) [Entitic mass] 30.3 pg Normal 27.0-32.0 [facility] Comment on above: Order Comment: 109.1 Performed By: #### L 100.0100 ####[facility] [address] [place], [address] MCHC (RBC) [Mass/Vol] 33.7 g/dL Normal 32-36 [facility] Comment on above: Order Comment: 109.1 Performed By: #### L 100.0100 ####[facility] [address] [place], [address] MCV (RBC) [Entitic vol] 90.1 fL Normal 80-94 [facility] Comment on above: Order Comment: 109.1 Performed By: #### L 100.0100 ####[facility] [address] [place], [address] Monocytes/100 WBC (Bld) 7.1 % Normal 0-10 [facility] Comment on above: Order Comment: 109.1 Performed By: #### L 100.0100 ####[facility] [address] [place], [address] Neutrophils/100 WBC (Bld) 64.2 % Normal 47-70 [facility] Comment on above: Order Comment: 109.1 Performed By: #### L 100.0100 ####[facility] [address] [place], [address] Nucleated RBC (Bld) [#/Vol] 0 10*3/uL Normal 0-5 [facility] Comment on above: Order Comment: 109.1 Performed By: #### L 100.0100 ####[facility] [address] [place], [address] Platelet mean volume (Bld) [Entitic vol] 11.2 fL Normal 6.2-12.0 [facility] Comment on above: Order Comment: 109.1 Performed By: #### L 100.0100 ####[facility] [address] [place], [address] Platelets (Bld) [#/Vol] 188 10*3/uL Normal 150-450 [facility] Comment on above: Order Comment: 109.1 Performed By: #### L 100.0100 ####[facility] [address] [place], [address] RBC (Bld) [#/Vol] 4.65 10*6/uL Normal 4.6-6.2 [facility] Comment on above: Order Comment: 109.1 Performed By: #### L 100.0100 ####[facility] [address] [place], [address] RDW SD 41.6 fl Normal 35.1-43.9 [facility] Comment on above: Order Comment: 109.1 Performed By: #### L 100.0100 ####[facility] [address] [place], [address] WBC (Bld) [#/Vol] 7.8 10*3/uL Normal 4.4-11.0 [facility] Comment on above: Order Comment: 109.1 Performed By: #### L 100.0100 ####[facility] [address] [place], [address] Eosinophil percentageOrdered By: Renard Burgos on 08-12-2024 Eosinophils/100 WBC (Bld) 0.9 % 0-5 [facility] Erythrocyte distribution wid th (RBC) [Ratio]Ordered By: Renard Burgos on 08-12-2024 Erythrocyte distribution width (RBC) [Entitic vol] 41.6 fL 35.1-43.9 [facility] Erythrocyte distribution wid th ratioOrdered By: Renard Burgos on 08-12-2024 Erythrocyte distribution width (RBC) [Ratio] 12.7 % 11.6-14.6 [facility] Erythrocyte distribution wid th standard deviationOrdered By: Renard Burgos on 08-12-2024 Erythrocyte distribution width (RBC) [Ratio] 41.6 fl 35.1-43.9 [facility] Hematocrit Auto (Bld) [Volum e fraction]Ordered By: Renard Burgos on 08-12-2024 Hematocrit (Bld) [Volume fraction] 41.9 % 40-54 [facility] Hemoglobin measurementOrdere d By: Renard Burgos on 08-12-2024 Hemoglobin (Bld) [Mass/Vol] 14.1 g/dL 13.0-16.5 [facility] Immature granulocytes/100 WB C Auto (Bld)Ordered By: Renard Burgos on 08-12-2024 Immature granulocytes/100 WBC (Bld) 0.300 % 0.0-0.9 [facility] Comment on above: IG% - Immature Granu locytes (promyelocytes, myelocytes and metamyelocytes) > 1% indicates that a LEFT SHIFT is Present. Lymphocytes Auto (Unsp spec) [#/Vol]Ordered By: Renard Burgos on 08-12-2024 Lymphocytes (Bld) [#/Vol] 2.09 10*3/uL 0.83-4.51 [facility] Lymphocytes/100 WBC Auto (Un sp spec)Ordered By: Renard Burgos on 08-12-2024 Lymphocytes/100 WBC (Bld) 27.0 % 19-41 [facility] MCV (mean corpuscular volume ) determinationOrdered By: Renard Burgos on 08-12-2024 MCV (RBC) [Entitic vol] 90.1 fL 80-94 [facility] Mean corpuscular hemoglobin (MCH) determinationOrdered By: Renard Burgos on 08-12-2024 MCH (RBC) [Entitic mass] 30.3 pg 27.0-32.0 [facility] Mean corpuscular hemoglobin concentration (MCHC) determinationOrdered By: Renard Burgos on 08-12-2024 MCHC (RBC) [Mass/Vol] 33.7 g/dL 32-36 [facility] Mean platelet volume determi nationOrdered By: Renard Burgos on 08-12-2024 Platelet mean volume (Bld) [Entitic vol] 11.2 fL 6.2-12.0 [facility] Monocyte percentageOrdered B y: Renard Burgos on 08-12-2024 Monocytes/100 WBC (Bld) 7.1 % 0-10 [facility] Neutrophil percentageOrdered By: Renard Burgos on 08-12-2024 Neutrophils/100 WBC (Bld) 64.2 % 47-70 [facility] [facility] Nucleated red blood cell per centageOrdered By: Renard Burgos on 08-12-2024 Nucleated RBC/100 WBC (Bld) [Ratio] 0 % 0-5 [facility] Platelet countOrdered By: Garrick Bhatt on 08-12-2024 Platelets (Bld) [#/Vol] 188 10*3/uL 150-450 [facility] RBC Auto (Bld) [#/Vol]Ordere d By: Renard Burgos on 08-12-2024 RBC (Bld) [#/Vol] 4.65 10*6/uL 4.6-6.2 [facility] White blood cell (WBC) count Ordered By: Renard Burgos on 08-12-2024 WBC (Bld) [#/Vol] 7.8 10*3/uL 4.4-11.0 [facility] Absolute lymphocyte countOrd ered By: Renard Burgos on 08-05-2024 Lymphocytes Auto (Unsp spec) [#/Vol] 2.31 10*3/uL 0.83-4.51 [facility] Absolute neutrophil countOrd ered By: Renard Burgos on 08-05-2024 Neutrophils (Bld) [#/Vol] 5.4 10*3/uL 2.0-7.7 [facility] Automated lymphocyte count a s percentage of total leukocytesOrdered By: Renard Burgos on 08-05-2024 Lymphocytes/100 WBC Auto (Unsp spec) 26.9 % 19-41 [facility] Basophil percentageOrdered B y: Renard Burgos on 08-05-2024 Basophils/100 WBC (Bld) 0.6 % 0-1 [facility] CBC W/Diff, Automatedon Absolute Lymph 2.31 X10 3/uL Normal 0.83-4.51 [facility] Comment on above: Order Comment: 109.1 Performed By: #### L 100.0100 ####[facility] [address] [place], [address] Absolute Neut 5.4 X10 3/uL Normal 2.0-7.7 [facility] Comment on above: Order Comment: 109.1 Performed By: #### L 100.0100 ####[facility] [address] [place], [address] Basophils/100 WBC (Bld) 0.6 % Normal 0-1 [facility] Comment on above: Order Comment: 109.1 Performed By: #### L 100.0100 ####[facility] [address] [place], [address] Eosinophils/100 WBC (Bld) 0.8 % Normal 0-5 [facility] Comment on above: Order Comment: 109.1 Performed By: #### L 100.0100 ####[facility] [address] [place], [address] Erythrocyte distribution width (RBC) [Ratio] 12.7 % Normal 11.6-14.6 [facility] Comment on above: Order Comment: 109.1 Performed By: #### L 100.0100 ####[facility] [address] [place], [address] Hematocrit (Bld) [Volume fraction] 41.6 % Normal 40-54 [facility] Comment on above: Order Comment: 109.1 Performed By: #### L 100.0100 ####[facility] [address] [place], [address] Hemoglobin (Bld) [Mass/Vol] 13.7 g/dL Normal 13.0-16.5 [facility] Comment on above: Order Comment: 109.1 Performed By: #### L 100.0100 ####[facility] [address] [place], [address] IG% 0.300 Normal 0.0-0.9 [facility] Comment on above: Order Comment: 109.1 Result Comment: IG% - Immature Granulocytes (promyelocytes, myelocytes andmetamyelocytes) > 1% indicates that a LEFT SHIFT is Present. Performed By: #### L 100.0100 ####[facility] [address] [place], [address] Lymphocytes/100 WBC (Bld) 26.9 % Normal 19-41 [facility] Comment on above: Order Comment: 109.1 Performed By: #### L 100.0100 ####[facility] [address] [place], [address] MCH (RBC) [Entitic mass] 30.1 pg Normal 27.0-32.0 [facility] Comment on above: Order Comment: 109.1 Performed By: #### L 100.0100 ####[facility] [address] [place], [address] MCHC (RBC) [Mass/Vol] 32.9 g/dL Normal 32-36 [facility] Comment on above: Order Comment: 109.1 Performed By: #### L 100.0100 ####[facility] [address] [place], [address] MCV (RBC) [Entitic vol] 91.4 fL Normal 80-94 [facility] Comment on above: Order Comment: 109.1 Performed By: #### L 100.0100 ####[facility] [address] [place], [address] Monocytes/100 WBC (Bld) 8.3 % Normal 0-10 [facility] Comment on above: Order Comment: 109.1 Performed By: #### L 100.0100 ####[facility] [address] [place], [address] Neutrophils/100 WBC (Bld) 63.1 % Normal 47-70 [facility] Comment on above: Order Comment: 109.1 Performed By: #### L 100.0100 ####[facility] [address] [place], [address] Nucleated RBC (Bld) [#/Vol] 0 10*3/uL Normal 0-5 [facility] Comment on above: Order Comment: 109.1 Performed By: #### L 100.0100 ####[facility] [address] [place], [address] Platelet mean volume (Bld) [Entitic vol] 11.1 fL Normal 6.2-12.0 [facility] Comment on above: Order Comment: 109.1 Performed By: #### L 100.0100 ####[facility] [address] [place], [address] Platelets (Bld) [#/Vol] 199 10*3/uL Normal 150-450 [facility] Comment on above: Order Comment: 109.1 Performed By: #### L 100.0100 ####[facility] [address] [place], [address] RBC (Bld) [#/Vol] 4.55 10*6/uL Low 4.6-6.2 [facility] Comment on above: Order Comment: 109.1 Performed By: #### L 100.0100 ####[facility] [address] [place], [address] RDW SD 42.5 fl Normal 35.1-43.9 [facility] Comment on above: Order Comment: 109.1 Performed By: #### L 100.0100 ####[facility] [address] [place], [address] WBC (Bld) [#/Vol] 8.6 10*3/uL Normal 4.4-11.0 [facility] Comment on above: Order Comment: 109.1 Performed By: #### L 100.0100 ####[facility] [address] [place], [address] Eosinophil percentageOrdered By: Renard Burgos on 08-05-2024 Eosinophils/100 WBC (Bld) 0.8 % 0-5 [facility] Erythrocyte distribution wid th (RBC) [Ratio]Ordered By: Renard Burgos on 08-05-2024 Erythrocyte distribution width (RBC) [Entitic vol] 42.5 fL 35.1-43.9 [facility] Erythrocyte distribution wid th ratioOrdered By: Renard Burgos on 08-05-2024 Erythrocyte distribution width (RBC) [Ratio] 12.7 % 11.6-14.6 [facility] Erythrocyte distribution wid th standard deviationOrdered By: Renard Burgos on 08-05-2024 Erythrocyte distribution width (RBC) [Ratio] 42.5 fl 35.1-43.9 [facility] Hematocrit Auto (Bld) [Volum e fraction]Ordered By: Renard Burgos on 08-05-2024 Hematocrit (Bld) [Volume fraction] 41.6 % 40-54 [facility] Hemoglobin measurementOrdere d By: Renard Burgos on 08-05-2024 Hemoglobin (Bld) [Mass/Vol] 13.7 g/dL 13.0-16.5 [facility] Immature granulocytes/100 WB C Auto (Bld)Ordered By: Renard Burgos on 08-05-2024 Immature granulocytes/100 WBC (Bld) 0.300 % 0.0-0.9 [facility] Comment on above: IG% - Immature Granu locytes (promyelocytes, myelocytes and metamyelocytes) > 1% indicates that a LEFT SHIFT is Present. Lymphocytes Auto (Unsp spec) [#/Vol]Ordered By: Renard Burgos on 08-05-2024 Lymphocytes (Bld) [#/Vol] 2.31 10*3/uL 0.83-4.51 [facility] Lymphocytes/100 WBC Auto (Un sp spec)Ordered By: Renard Burgos on 08-05-2024 Lymphocytes/100 WBC (Bld) 26.9 % 19-41 [facility] MCV (mean corpuscular volume ) determinationOrdered By: Renard Burgos on 08-05-2024 MCV (RBC) [Entitic vol] 91.4 fL 80-94 [facility] Mean corpuscular hemoglobin (MCH) determinationOrdered By: Renard Burgos on 08-05-2024 MCH (RBC) [Entitic mass] 30.1 pg 27.0-32.0 [facility] Mean corpuscular hemoglobin concentration (MCHC) determinationOrdered By: Renard Burgos on 08-05-2024 MCHC (RBC) [Mass/Vol] 32.9 g/dL 32-36 [facility] Mean platelet volume determi nationOrdered By: Renard Burgos on 08-05-2024 Platelet mean volume (Bld) [Entitic vol] 11.1 fL 6.2-12.0 [facility] Monocyte percentageOrdered B y: Renard Burgos on 08-05-2024 Monocytes/100 WBC (Bld) 8.3 % 0-10 [facility] Neutrophil percentageOrdered By: Renard Burgos on 08-05-2024 Neutrophils/100 WBC (Bld) 63.1 % 47-70 [facility] Nucleated red blood cell per centageOrdered By: Renard Burgos on 08-05-2024 Nucleated RBC/100 WBC (Bld) [Ratio] 0 % 0-5 [facility] Platelet countOrdered By: Garrick Bhatt on 08-05-2024 Platelets (Bld) [#/Vol] 199 10*3/uL 150-450 [facility] RBC Auto (Bld) [#/Vol]Ordere d By: Renard Burgos on 08-05-2024 RBC (Bld) [#/Vol] 4.55 10*6/uL Low 4.6-6.2 [facility] White blood cell (WBC) count Ordered By: Renard Burgos on 08-05-2024 WBC (Bld) [#/Vol] 8.6 10*3/uL 4.4-11.0 [facility] Absolute lymphocyte countOrd ered By: Renard Burgos on 07-29-2024 Lymphocytes Auto (Unsp spec) [#/Vol] 1.93 10*3/uL 0.83-4.51 [facility] Absolute neutrophil countOrd ered By: Renard Burgos on 07-29-2024 Neutrophils (Bld) [#/Vol] 6.8 10*3/uL 2.0-7.7 [facility] Automated lymphocyte count a s percentage of total leukocytesOrdered By: Renard Burgos on 07-29-2024 Lymphocytes/100 WBC Auto (Unsp spec) 20.2 % 19-41 [facility] Basophil percentageOrdered B y: Renard Amezquitahola on 07-29-2024 Basophils/100 WBC (Bld) 0.5 % 0-1 [facility] CBC W/Diff, Automatedon 07-01 Absolute Lymph 1.93 X10 3/uL Normal 0.83-4.51 [facility] Comment on above: Order Comment: 109-1 Performed By: #### L 100.0100 ####[facility] [address] [place], [address] Absolute Neut 6.8 X10 3/uL Normal 2.0-7.7 [facility] Comment on above: Order Comment: 109-1 Performed By: #### L 100.0100 ####[facility] [address] [place], [address] Basophils/100 WBC (Bld) 0.5 % Normal 0-1 [facility] Comment on above: Order Comment: 109-1 Performed By: #### L 100.0100 ####[facility] [address] [place], [address] Eosinophils/100 WBC (Bld) 0.7 % Normal 0-5 [facility] Comment on above: Order Comment: 109-1 Performed By: #### L 100.0100 ####[facility] [address] [place], [address] Erythrocyte distribution width (RBC) [Ratio] 12.8 % Normal 11.6-14.6 [facility] Comment on above: Order Comment: 109-1 Performed By: #### L 100.0100 ####[facility] [address] [place], [address] Hematocrit (Bld) [Volume fraction] 40.7 % Normal 40-54 [facility] Comment on above: Order Comment: 109-1 Performed By: #### L 100.0100 ####[facility] [address] [place], [address] Hemoglobin (Bld) [Mass/Vol] 13.5 g/dL Normal 13.0-16.5 [facility] Comment on above: Order Comment: 109-1 Performed By: #### L 100.0100 ####[facility] [address] [place], [address] IG% 0.400 Normal 0.0-0.9 [facility] Comment on above: Order Comment: 109-1 Result Comment: IG% - Immature Granulocytes (promyelocytes, myelocytes andmetamyelocytes) > 1% indicates that a LEFT SHIFT is Present. Performed By: #### L 100.0100 ####[facility] [address] [place], [address] Lymphocytes/100 WBC (Bld) 20.2 % Normal 19-41 [facility] Comment on above: Order Comment: 109-1 Performed By: #### L 100.0100 ####[facility] [address] [place], [address] MCH (RBC) [Entitic mass] 29.9 pg Normal 27.0-32.0 [facility] Comment on above: Order Comment: 109-1 Performed By: #### L 100.0100 ####[facility] [address] [place], [address] MCHC (RBC) [Mass/Vol] 33.2 g/dL Normal 32-36 [facility] Comment on above: Order Comment: 109-1 Performed By: #### L 100.0100 ####[facility] [address] [place], [address] MCV (RBC) [Entitic vol] 90.0 fL Normal 80-94 [facility] Comment on above: Order Comment: 109-1 Performed By: #### L 100.0100 ####[facility] [address] [place], [address] Monocytes/100 WBC (Bld) 7.1 % Normal 0-10 [facility] Comment on above: Order Comment: 109-1 Performed By: #### L 100.0100 ####[facility] [address] [place], [address] Neutrophils/100 WBC (Bld) 71.1 % High 47-70 [facility] Comment on above: Order Comment: 109-1 Performed By: #### L 100.0100 ####[facility] [address] [place], [address] Nucleated RBC (Bld) [#/Vol] 0 10*3/uL Normal 0-5 [facility] Comment on above: Order Comment: 109-1 Performed By: #### L 100.0100 ####[facility] [address] [place], [address] Platelet mean volume (Bld) [Entitic vol] 11.2 fL Normal 6.2-12.0 [facility] Comment on above: Order Comment: 109-1 Performed By: #### L 100.0100 ####[facility] [address] [place], [address] Platelets (Bld) [#/Vol] 218 10*3/uL Normal 150-450 [facility] Comment on above: Order Comment: 109-1 Performed By: #### L 100.0100 ####[facility] [address] [place], [address] RBC (Bld) [#/Vol] 4.52 10*6/uL Low 4.6-6.2 [facility] Comment on above: Order Comment: 109-1 Performed By: #### L 100.0100 ####[facility] [address] [place], [address] RDW SD 41.9 fl Normal 35.1-43.9 [facility] Comment on above: Order Comment: 109-1 Performed By: #### L 100.0100 ####[facility] [address] [place], [place], [address] WBC (Bld) [#/Vol] 9.6 10*3/uL Normal 4.4-11.0 [facility] Comment on above: Order Comment: 109-1 Performed By: #### L 100.0100 ####[facility] [address] [place], [address] Eosinophil percentageOrdered By: Renard Burgos on 07-29-2024 Eosinophils/100 WBC (Bld) 0.7 % 0-5 [facility] Erythrocyte distribution wid th ratioOrdered By: Renard Burgos on 07-29-2024 Erythrocyte distribution width (RBC) [Ratio] 12.8 % 11.6-14.6 [facility] Erythrocyte distribution wid th standard deviationOrdered By: Renard Burgos on 07-29-2024 Erythrocyte distribution width (RBC) [Entitic vol] 41.9 fL 35.1-43.9 [facility] Erythrocyte distribution width (RBC) [Ratio] 41.9 fl 35.1-43.9 [facility] Hematocrit Auto (Bld) [Volum e fraction]Ordered By: Renard Burgos on 07-29-2024 Hematocrit (Bld) [Volume fraction] 40.7 % 40-54 [facility] Hemoglobin measurementOrdere d By: Renard Burgos on 07-29-2024 Hemoglobin (Bld) [Mass/Vol] 13.5 g/dL 13.0-16.5 [facility] Immature granulocytes/100 WB C Auto (Bld)Ordered By: Renard Burgos on 07-29-2024 Immature granulocytes/100 WBC (Bld) 0.400 % 0.0-0.9 [facility] Comment on above: IG% - Immature Granu locytes (promyelocytes, myelocytes and metamyelocytes) > 1% indicates that a LEFT SHIFT is Present. Lymphocytes Auto (Unsp spec) [#/Vol]Ordered By: Renard Burgos on 07-29-2024 Lymphocytes (Bld) [#/Vol] 1.93 10*3/uL 0.83-4.51 [facility] Lymphocytes/100 WBC Auto (Un sp spec)Ordered By: Renard Burgos on 07-29-2024 Lymphocytes/100 WBC (Bld) 20.2 % 19-41 [facility] MCV (mean corpuscular volume ) determinationOrdered By: Renard Burgos on 07-29-2024 MCV (RBC) [Entitic vol] 90.0 fL 80-94 [facility] Mean corpuscular hemoglobin (MCH) determinationOrdered By: Renard Burgos on 07-29-2024 MCH (RBC) [Entitic mass] 29.9 pg 27.0-32.0 [facility] Mean corpuscular hemoglobin concentration (MCHC) determinationOrdered By: Renard Burgos on 07-29-2024 MCHC (RBC) [Mass/Vol] 33.2 g/dL 32-36 [facility] Mean platelet volume determi nationOrdered By: Renard Burgos on 07-29-2024 Platelet mean volume (Bld) [Entitic vol] 11.2 fL 6.2-12.0 [facility] Monocyte percentageOrdered B y: Renard Burgos on 07-29-2024 Monocytes/100 WBC (Bld) 7.1 % 0-10 [facility] Neutrophil percentageOrdered By: Renard Burgos on 07-29-2024 Neutrophils/100 WBC (Bld) 71.1 % High 47-70 [facility] Nucleated red blood cell per centageOrdered By: Renard Burgos on 07-29-2024 Nucleated RBC/100 WBC (Bld) [Ratio] 0 % 0-5 [facility] Platelet countOrdered By: Garrick Bhatt on 07-29-2024 Platelets (Bld) [#/Vol] 218 10*3/uL 150-450 [facility] RBC Auto (Bld) [#/Vol]Ordere d By: Renard Burgos on 07-29-2024 RBC (Bld) [#/Vol] 4.52 10*6/uL Low 4.6-6.2 [facility] White blood cell (WBC) count Ordered By: Renard Burgos on 07-29-2024 WBC (Bld) [#/Vol] 9.6 10*3/uL 4.4-11.0 [facility] Absolute lymphocyte countOrd ered By: Renard Hensleyrustam on 07-22-2024 Lymphocytes Auto (Unsp spec) [#/Vol] 1.90 10*3/uL 0.83-4.51 [facility] Absolute neutrophil countOrd ered By: Renard Hensleyrustam on 07-22-2024 Neutrophils (Bld) [#/Vol] 5.2 10*3/uL 2.0-7.7 [facility] Automated lymphocyte count a s percentage of total leukocytesOrdered By: Renard Hensleyrustam on 07-22-2024 Lymphocytes/100 WBC Auto (Unsp spec) 23.9 % 19-41 [facility] Basophil percentageOrdered B y: Renard Shellierustam on 07-22-2024 Basophils/100 WBC (Bld) 0.6 % 0-1 [facility] CBC W/Diff, Automatedon 06-30 Absolute Lymph 1.90 X10 3/uL Normal 0.83-4.51 [facility] Comment on above: Order Comment: 109.1 Performed By: #### L 100.0100 ####[facility] [address] [place], [address] Absolute Neut 5.2 X10 3/uL Normal 2.0-7.7 [facility] Comment on above: Order Comment: 109.1 Performed By: #### L 100.0100 ####[facility] [address] [place], [address] Basophils/100 WBC (Bld) 0.6 % Normal 0-1 [facility] Comment on above: Order Comment: 109.1 Performed By: #### L 100.0100 ####[facility] [address] [place], [address] Eosinophils/100 WBC (Bld) 0.9 % Normal 0-5 [facility] Comment on above: Order Comment: 109.1 Performed By: #### L 100.0100 ####[facility] [address] [place], [address] Erythrocyte distribution width (RBC) [Ratio] 12.9 % Normal 11.6-14.6 [facility] Comment on above: Order Comment: 109.1 Performed By: #### L 100.0100 ####[facility] [address] [place], [address] Hematocrit (Bld) [Volume fraction] 41.4 % Normal 40-54 [facility] Comment on above: Order Comment: 109.1 Performed By: #### L 100.0100 ####[facility] [address] [place], [address] Hemoglobin (Bld) [Mass/Vol] 13.5 g/dL Normal 13.0-16.5 [facility] Comment on above: Order Comment: 109.1 Performed By: #### L 100.0100 ####[facility] [address] [place], [address] IG% 0.300 Normal 0.0-0.9 [facility] Comment on above: Order Comment: 109.1 Result Comment: IG% - Immature Granulocytes (promyelocytes, myelocytes andmetamyelocytes) > 1% indicates that a LEFT SHIFT is Present. Performed By: #### L 100.0100 ####[facility] [address] [place], [address] Lymphocytes/100 WBC (Bld) 23.9 % Normal 19-41 [facility] Comment on above: Order Comment: 109.1 Performed By: #### L 100.0100 ####[facility] [address] [place], [address] MCH (RBC) [Entitic mass] 29.8 pg Normal 27.0-32.0 [facility] Comment on above: Order Comment: 109.1 Performed By: #### L 100.0100 ####[facility] [address] [place], [address] MCHC (RBC) [Mass/Vol] 32.6 g/dL Normal 32-36 [facility] Comment on above: Order Comment: 109.1 Performed By: #### L 100.0100 ####[facility] [address] [place], [address] MCV (RBC) [Entitic vol] 91.4 fL Normal 80-94 [facility] Comment on above: Order Comment: 109.1 Performed By: #### L 100.0100 ####[facility] [address] [place], [address] Monocytes/100 WBC (Bld) 9.4 % Normal 0-10 [facility] Comment on above: Order Comment: 109.1 Performed By: #### L 100.0100 ####[facility] [address] [place], [address] Neutrophils/100 WBC (Bld) 64.9 % Normal 47-70 [facility] Comment on above: Order Comment: 109.1 Performed By: #### L 100.0100 ####[facility] [address] [place], [address] Nucleated RBC (Bld) [#/Vol] 0 10*3/uL Normal 0-5 [facility] Comment on above: Order Comment: 109.1 Performed By: #### L 100.0100 ####[facility] [address] [place], [address] Platelet mean volume (Bld) [Entitic vol] 11.5 fL Normal 6.2-12.0 [facility] Comment on above: Order Comment: 109.1 Performed By: #### L 100.0100 ####[facility] [address] [place], [address] Platelets (Bld) [#/Vol] 202 10*3/uL Normal 150-450 [facility] Comment on above: Order Comment: 109.1 Performed By: #### L 100.0100 ####[facility] [address] [place], [address] RBC (Bld) [#/Vol] 4.53 10*6/uL Low 4.6-6.2 [facility] Comment on above: Order Comment: 109.1 Performed By: #### L 100.0100 ####[facility] [address] [place], [address] RDW SD 42.7 fl Normal 35.1-43.9 [facility] Comment on above: Order Comment: 109.1 Performed By: #### L 100.0100 ####[facility] [address] [place], [address] WBC (Bld) [#/Vol] 8.0 10*3/uL Normal 4.4-11.0 [facility] Comment on above: Order Comment: 109.1 Performed By: #### L 100.0100 ####[facility] [address] [place], [address] Eosinophil percentageOrdered By: Renard Burgos on 07-22-2024 Eosinophils/100 WBC (Bld) 0.9 % 0-5 [facility] Erythrocyte distribution wid th ratioOrdered By: Renard Brugos on 07-22-2024 Erythrocyte distribution width (RBC) [Ratio] 12.9 % 11.6-14.6 [facility] Erythrocyte distribution wid th standard deviationOrdered By: Renard Burgos on 07-22-2024 Erythrocyte distribution width (RBC) [Entitic vol] 42.7 fL 35.1-43.9 [facility] Erythrocyte distribution width (RBC) [Ratio] 42.7 fl 35.1-43.9 [facility] Hematocrit Auto (Bld) [Volum e fraction]Ordered By: Renard Burgos on 07-22-2024 Hematocrit (Bld) [Volume fraction] 41.4 % 40-54 [facility] Hemoglobin measurementOrdere d By: Renard Burgos on 07-22-2024 Hemoglobin (Bld) [Mass/Vol] 13.5 g/dL 13.0-16.5 [facility] Immature granulocytes/100 WB C Auto (Bld)Ordered By: Renard Burgos on 07-22-2024 Immature granulocytes/100 WBC (Bld) 0.300 % 0.0-0.9 [facility] Comment on above: IG% - Immature Granu locytes (promyelocytes, myelocytes and metamyelocytes) > 1% indicates that a LEFT SHIFT is Present. Lymphocytes Auto (Unsp spec) [#/Vol]Ordered By: Renard Burgos on 07-22-2024 Lymphocytes (Bld) [#/Vol] 1.90 10*3/uL 0.83-4.51 [facility] Lymphocytes/100 WBC Auto (Un sp spec)Ordered By: Renard Burgos on 07-22-2024 Lymphocytes/100 WBC (Bld) 23.9 % 19-41 [facility] MCV (mean corpuscular volume ) determinationOrdered By: Renard Burgos on 07-22-2024 MCV (RBC) [Entitic vol] 91.4 fL 80-94 [facility] Mean corpuscular hemoglobin (MCH) determinationOrdered By: Renard Burgos on 07-22-2024 MCH (RBC) [Entitic mass] 29.8 pg 27.0-32.0 [facility] Mean corpuscular hemoglobin concentration (MCHC) determinationOrdered By: Renard Burgos on 07-22-2024 MCHC (RBC) [Mass/Vol] 32.6 g/dL 32-36 [facility] Mean platelet volume determi nationOrdered By: Renard Burgos on 07-22-2024 Platelet mean volume (Bld) [Entitic vol] 11.5 fL 6.2-12.0 [facility] Monocyte percentageOrdered B y: Renard Burgos on 07-22-2024 Monocytes/100 WBC (Bld) 9.4 % 0-10 [facility] Neutrophil percentageOrdered By: Renard Burgos on 07-22-2024 Neutrophils/100 WBC (Bld) 64.9 % 47-70 [facility] Nucleated red blood cell per centageOrdered By: Renard Burgos on 07-22-2024 Nucleated RBC/100 WBC (Bld) [Ratio] 0 % 0-5 [facility] Platelet countOrdered By: Garrick Bhatt on 07-22-2024 Platelets (Bld) [#/Vol] 202 10*3/uL 150-450 [facility] RBC Auto (Bld) [#/Vol]Ordere d By: Renard Burgos on 07-22-2024 RBC (Bld) [#/Vol] 4.53 10*6/uL Low 4.6-6.2 [facility] White blood cell (WBC) count Ordered By: Renard Burgos on 07-22-2024 WBC (Bld) [#/Vol] 8.0 10*3/uL 4.4-11.0 [facility] L506.1001on 07-16-2024 Vitamin D 25-OH 21.8 ng/mL Low 30-100 [facility] Comment on above: Order Comment: 109 Result Comment: Edilma min D StatusDeficiency: <20 ng/mL (50nmol/L)Insufficiency: 20-30 ng/mL (50-75 nmol/L)Sufficiency: 30-100 ng/mL (75-250 nmol/L)Toxicity: >100 ng/mL (>250 nmol/L) Performed By: #### L [phone] ####[facility] [id number] [place], [address] Vitamin D, 25-hydroxyOrdered By: Renard Burgos on 07-16-2024 Vitamin D 25-Hydroxy 21.8 ng/mL Low 30-100 [facility] Comment on above: Vitamin D StatusDefi ciency: <20 ng/mL (50nmol/L)Insufficiency: 20-30 ng/mL (50-75 nmol/L)Sufficiency: 30-100 ng/mL (75-250 nmol/L)Toxicity: >100 ng/mL (>250 nmol/L) Absolute lymphocyte countOrd ered By: Renard Burgos on 07-15-2024 Lymphocytes Auto (Unsp spec) [#/Vol] 2.10 10*3/uL 0.83-4.51 [facility] Absolute neutrophil countOrd ered By: Renard Burgos on 07-15-2024 Neutrophils (Bld) [#/Vol] 6.9 10*3/uL 2.0-7.7 [facility] Automated lymphocyte count a s percentage of total leukocytesOrdered By: Renard Burgos on 07-15-2024 Lymphocytes/100 WBC Auto (Unsp spec) 21.0 % 19-41 [facility] Basophil percentageOrdered B y: Renard Burgos on 07-15-2024 Basophils/100 WBC (Bld) 0.5 % 0-1 [facility] CBC W/Diff, Automatedon 06-29 Absolute Lymph 2.10 X10 3/uL Normal 0.83-4.51 [facility] Comment on above: Order Comment: 109.1 Performed By: #### L 100.0100 ####[facility] [address] [place], [address] Absolute Neut 6.9 X10 3/uL Normal 2.0-7.7 [facility] Comment on above: Order Comment: 109.1 Performed By: #### L 100.0100 ####[facility] [address] [place], [address] Basophils/100 WBC (Bld) 0.5 % Normal 0-1 [facility] Comment on above: Order Comment: 109.1 Performed By: #### L 100.0100 ####[facility] [address] [place], [address] Eosinophils/100 WBC (Bld) 1.2 % Normal 0-5 [facility] Comment on above: Order Comment: 109.1 Performed By: #### L 100.0100 ####[facility] [address] [place], [address] Erythrocyte distribution width (RBC) [Ratio] 12.9 % Normal 11.6-14.6 [facility] Comment on above: Order Comment: 109.1 Performed By: #### L 100.0100 ####[facility] [address] [place], [address] Hematocrit (Bld) [Volume fraction] 41.0 % Normal 40-54 [facility] Comment on above: Order Comment: 109.1 Performed By: #### L 100.0100 ####[facility] [address] [place], [address] Hemoglobin (Bld) [Mass/Vol] 13.4 g/dL Normal 13.0-16.5 [facility] Comment on above: Order Comment: 109.1 Performed By: #### L 100.0100 ####[facility] [address] [place], [address] IG% 0.300 Normal 0.0-0.9 [facility] Comment on above: Order Comment: 109.1 Result Comment: IG% - Immature Granulocytes (promyelocytes, myelocytes andmetamyelocytes) > 1% indicates that a LEFT SHIFT is Present. Performed By: #### L 100.0100 ####[facility] [address] [place], [address] Lymphocytes/100 WBC (Bld) 21.0 % Normal 19-41 [facility] Comment on above: Order Comment: 109.1 Performed By: #### L 100.0100 ####[facility] [address] [place], [address] MCH (RBC) [Entitic mass] 29.7 pg Normal 27.0-32.0 [facility] Comment on above: Order Comment: 109.1 Performed By: #### L 100.0100 ####[facility] [address] [place], [address] MCHC (RBC) [Mass/Vol] 32.7 g/dL Normal 32-36 [facility] Comment on above: Order Comment: 109.1 Performed By: #### L 100.0100 ####[facility] [address] [place], [address] MCV (RBC) [Entitic vol] 90.9 fL Normal 80-94 [facility] Comment on above: Order Comment: 109.1 Performed By: #### L 100.0100 ####[facility] [address] [place], [address] Monocytes/100 WBC (Bld) 7.6 % Normal 0-10 [facility] Comment on above: Order Comment: 109.1 Performed By: #### L 100.0100 ####[facility] [address] [place], [address] Neutrophils/100 WBC (Bld) 69.4 % Normal 47-70 [facility] Comment on above: Order Comment: 109.1 Performed By: #### L 100.0100 ####[facility] [address] [place], [address] Nucleated RBC (Bld) [#/Vol] 0 10*3/uL Normal 0-5 [facility] Comment on above: Order Comment: 109.1 Performed By: #### L 100.0100 ####[facility] [address] [place], [address] Platelet mean volume (Bld) [Entitic vol] 11.4 fL Normal 6.2-12.0 [facility] Comment on above: Order Comment: 109.1 Performed By: #### L 100.0100 ####[facility] [address] [place], [address] Platelets (Bld) [#/Vol] 206 10*3/uL Normal 150-450 [facility] Comment on above: Order Comment: 109.1 Performed By: #### L 100.0100 ####[facility] [address] [place], [address] RBC (Bld) [#/Vol] 4.51 10*6/uL Low 4.6-6.2 [facility] Comment on above: Order Comment: 109.1 Performed By: #### L 100.0100 ####[facility] [address] [place], [address] RDW SD 42.3 fl Normal 35.1-43.9 [facility] Comment on above: Order Comment: 109.1 Performed By: #### L 100.0100 ####[facility] [address] [place], [address] WBC (Bld) [#/Vol] 10.0 10*3/uL Normal 4.4-11.0 [facility] Comment on above: Order Comment: 109.1 Performed By: #### L 100.0100 ####[facility] [address] [place], [address] Eosinophil percentageOrdered By: Renard Burgos on 07-15-2024 Eosinophils/100 WBC (Bld) 1.2 % 0-5 [facility] Erythrocyte distribution wid th ratioOrdered By: Renard Burgos on 07-15-2024 Erythrocyte distribution width (RBC) [Ratio] 12.9 % 11.6-14.6 [facility] Erythrocyte distribution wid th standard deviationOrdered By: Renard Burgos on 07-15-2024 Erythrocyte distribution width (RBC) [Entitic vol] 42.3 fL 35.1-43.9 [facility] Erythrocyte distribution width (RBC) [Ratio] 42.3 fl 35.1-43.9 [facility] Hematocrit Auto (Bld) [Volum e fraction]Ordered By: Renard Burgos on 07-15-2024 Hematocrit (Bld) [Volume fraction] 41.0 % 40-54 [facility] Hemoglobin measurementOrdere d By: Renard Burgos on 07-15-2024 Hemoglobin (Bld) [Mass/Vol] 13.4 g/dL 13.0-16.5 [facility] Immature granulocytes/100 WB C Auto (Bld)Ordered By: Renard Burgos on 07-15-2024 Immature granulocytes/100 WBC (Bld) 0.300 % 0.0-0.9 [facility] Comment on above: IG% - Immature Granu locytes (promyelocytes, myelocytes and metamyelocytes) > 1% indicates that a LEFT SHIFT is Present. Lymphocytes Auto (Unsp spec) [#/Vol]Ordered By: Renard Burgos on 07-15-2024 Lymphocytes (Bld) [#/Vol] 2.10 10*3/uL 0.83-4.51 [facility] Lymphocytes/100 WBC Auto (Un sp spec)Ordered By: Renard Burgos on 07-15-2024 Lymphocytes/100 WBC (Bld) 21.0 % 19-41 [facility] MCV (mean corpuscular volume ) determinationOrdered By: Renard Burgos on 07-15-2024 MCV (RBC) [Entitic vol] 90.9 fL 80-94 [facility] Mean corpuscular hemoglobin (MCH) determinationOrdered By: Renard Burgos on 07-15-2024 MCH (RBC) [Entitic mass] 29.7 pg 27.0-32.0 [facility] Mean corpuscular hemoglobin concentration (MCHC) determinationOrdered By: Renard Burgos on 07-15-2024 MCHC (RBC) [Mass/Vol] 32.7 g/dL 32-36 [facility] Mean platelet volume determi nationOrdered By: Renard Burgos on 07-15-2024 Platelet mean volume (Bld) [Entitic vol] 11.4 fL 6.2-12.0 [facility] Monocyte percentageOrdered B y: Renard Burgos on 07-15-2024 Monocytes/100 WBC (Bld) 7.6 % 0-10 [facility] Neutrophil percentageOrdered By: Renard Burgos on 07-15-2024 Neutrophils/100 WBC (Bld) 69.4 % 47-70 [facility] Nucleated red blood cell per centageOrdered By: Renard Burgos on 07-15-2024 Nucleated RBC/100 WBC (Bld) [Ratio] 0 % 0-5 [facility] Platelet countOrdered By: Garrick Bhatt on 07-15-2024 Platelets (Bld) [#/Vol] 206 10*3/uL 150-450 [facility] RBC Auto (Bld) [#/Vol]Ordere d By: Renard Burgos on 07-15-2024 RBC (Bld) [#/Vol] 4.51 10*6/uL Low 4.6-6.2 [facility] White blood cell (WBC) count Ordered By: Renard Burgos on 07-15-2024 WBC (Bld) [#/Vol] 10.0 10*3/uL 4.4-11.0 [facility] Absolute lymphocyte countOrd ered By: Renard Burgos on 07-08-2024 Lymphocytes Auto (Unsp spec) [#/Vol] 2.02 10*3/uL 0.83-4.51 [facility] Absolute neutrophil countOrd ered By: Renard Burgos on 07-08-2024 Neutrophils (Bld) [#/Vol] 7.2 10*3/uL 2.0-7.7 [facility] Automated lymphocyte count a s percentage of total leukocytesOrdered By: Renard Burgos on 07-08-2024 Lymphocytes/100 WBC Auto (Unsp spec) 19.7 % 19-41 [facility] Basophil percentageOrdered B y: Renard Burgos on 07-08-2024 Basophils/100 WBC (Bld) 0.6 % 0-1 [facility] CBC W/Diff, Automatedon 06-29-2024 Absolute Lymph 2.02 X10 3/uL Normal 0.83-4.51 [facility] Comment on above: Order Comment: 109-1 Performed By: #### L 100.0100 ####[facility] [address] [place], [address] Absolute Neut 7.2 X10 3/uL Normal 2.0-7.7 [facility] Comment on above: Order Comment: 109-1 Performed By: #### L 100.0100 ####[facility] [address] [place], [address] Basophils/100 WBC (Bld) 0.6 % Normal 0-1 [facility] Comment on above: Order Comment: 109-1 Performed By: #### L 100.0100 ####[facility] [address] [place], [address] Eosinophils/100 WBC (Bld) 1.5 % Normal 0-5 [facility] Comment on above: Order Comment: 109-1 Performed By: #### L 100.0100 ####[facility] [address] [place], [address] Erythrocyte distribution width (RBC) [Ratio] 12.9 % Normal 11.6-14.6 [facility] Comment on above: Order Comment: 109-1 Performed By: #### L 100.0100 ####[facility] [address] [place], [address] Hematocrit (Bld) [Volume fraction] 40.6 % Normal 40-54 [facility] Comment on above: Order Comment: 109-1 Performed By: #### L 100.0100 ####[facility] [address] [place], [address] Hemoglobin (Bld) [Mass/Vol] 13.6 g/dL Normal 13.0-16.5 [facility] Comment on above: Order Comment: 109-1 Performed By: #### L 100.0100 ####[facility] [address] [place], [address] IG% 0.500 Normal 0.0-0.9 [facility] Comment on above: Order Comment: 109-1 Result Comment: IG% - Immature Granulocytes (promyelocytes, myelocytes andmetamyelocytes) > 1% indicates that a LEFT SHIFT is Present. Performed By: #### L 100.0100 ####[facility] [address] [place], [address] Lymphocytes/100 WBC (Bld) 19.7 % Normal 19-41 [facility] Comment on above: Order Comment: 109-1 Performed By: #### L 100.0100 ####[facility] [address] [place], [address] MCH (RBC) [Entitic mass] 30.5 pg Normal 27.0-32.0 [facility] Comment on above: Order Comment: 109-1 Performed By: #### L 100.0100 ####[facility] [address] [place], [address] MCHC (RBC) [Mass/Vol] 33.5 g/dL Normal 32-36 [facility] Comment on above: Order Comment: 109-1 Performed By: #### L 100.0100 ####[facility] [address] [place], [address] MCV (RBC) [Entitic vol] 91.0 fL Normal 80-94 [facility] Comment on above: Order Comment: 109-1 Performed By: #### L 100.0100 ####[facility] [address] [place], [address] Monocytes/100 WBC (Bld) 7.4 % Normal 0-10 [facility] Comment on above: Order Comment: 109-1 Performed By: #### L 100.0100 ####[facility] [address] [place], [address] Neutrophils/100 WBC (Bld) 70.3 % High 47-70 [facility] Comment on above: Order Comment: 109-1 Performed By: #### L 100.0100 ####[facility] [address] [place], [address] Nucleated RBC (Bld) [#/Vol] 0 10*3/uL Normal 0-5 [facility] Comment on above: Order Comment: 109-1 Performed By: #### L 100.0100 ####[facility] [address] [place], [address] Platelet mean volume (Bld) [Entitic vol] 11.1 fL Normal 6.2-12.0 [facility] Comment on above: Order Comment: 109-1 Performed By: #### L 100.0100 ####[facility] [address] [place], [address] Platelets (Bld) [#/Vol] 207 10*3/uL Normal 150-450 [facility] Comment on above: Order Comment: 109-1 Performed By: #### L 100.0100 ####[facility] [address] [place], [address] RBC (Bld) [#/Vol] 4.46 10*6/uL Low 4.6-6.2 [facility] Comment on above: Order Comment: 109-1 Performed By: #### L 100.0100 ####[facility] [address] [place], [address] RDW SD 42.5 fl Normal 35.1-43.9 [facility] Comment on above: Order Comment: 109-1 Performed By: #### L 100.0100 ####[facility] [address] [place], [address] WBC (Bld) [#/Vol] 10.3 10*3/uL Normal 4.4-11.0 [facility] Comment on above: Order Comment: 109-1 Performed By: #### L 100.0100 ####[facility] [address] [place], [address] Eosinophil percentageOrdered By: Renard Burgos on 07-08-2024 Eosinophils/100 WBC (Bld) 1.5 % 0-5 [facility] Erythrocyte distribution wid th ratioOrdered By: Renard Burgos on 07-08-2024 Erythrocyte distribution width (RBC) [Ratio] 12.9 % 11.6-14.6 [facility] Erythrocyte distribution wid th standard deviationOrdered By: Renard Burgos on 07-08-2024 Erythrocyte distribution width (RBC) [Entitic vol] 42.5 fL 35.1-43.9 [facility] Erythrocyte distribution width (RBC) [Ratio] 42.5 fl 35.1-43.9 [facility] Hematocrit Auto (Bld) [Volum e fraction]Ordered By: Renard Burgos on 07-08-2024 Hematocrit (Bld) [Volume fraction] 40.6 % 40-54 [facility] Hemoglobin measurementOrdere d By: Renard Burgos on 07-08-2024 Hemoglobin (Bld) [Mass/Vol] 13.6 g/dL 13.0-16.5 [facility] Immature granulocytes/100 WB C Auto (Bld)Ordered By: Renard Burgos on 07-08-2024 Immature granulocytes/100 WBC (Bld) 0.500 % 0.0-0.9 [facility] Comment on above: IG% - Immature Granu locytes (promyelocytes, myelocytes and metamyelocytes) > 1% indicates that a LEFT SHIFT is Present. Lymphocytes Auto (Unsp spec) [#/Vol]Ordered By: Renard Burgos on 07-08-2024 Lymphocytes (Bld) [#/Vol] 2.02 10*3/uL 0.83-4.51 [facility] Lymphocytes/100 WBC Auto (Un sp spec)Ordered By: Renard Burgos on 07-08-2024 Lymphocytes/100 WBC (Bld) 19.7 % 19-41 [facility] MCV (mean corpuscular volume ) determinationOrdered By: Renard Burgos on 07-08-2024 MCV (RBC) [Entitic vol] 91.0 fL 80-94 [facility] Mean corpuscular hemoglobin (MCH) determinationOrdered By: Renard Burgos on 07-08-2024 MCH (RBC) [Entitic mass] 30.5 pg 27.0-32.0 [facility] Mean corpuscular hemoglobin concentration (MCHC) determinationOrdered By: Renard Burgos on 07-08-2024 MCHC (RBC) [Mass/Vol] 33.5 g/dL 32-36 [facility] Mean platelet volume determi nationOrdered By: Renard Burgos on 07-08-2024 Platelet mean volume (Bld) [Entitic vol] 11.1 fL 6.2-12.0 [facility] Monocyte percentageOrdered B y: Renard Burgos on 07-08-2024 Monocytes/100 WBC (Bld) 7.4 % 0-10 [facility] Neutrophil percentageOrdered By: Renard Burgos on 07-08-2024 Neutrophils/100 WBC (Bld) 70.3 % High 47-70 [facility] Nucleated red blood cell per centageOrdered By: Renard Burgos on 07-08-2024 Nucleated RBC/100 WBC (Bld) [Ratio] 0 % 0-5 [facility] Platelet countOrdered By: Garrick Bhatt on 07-08-2024 Platelets (Bld) [#/Vol] 207 10*3/uL 150-450 [facility] RBC Auto (Bld) [#/Vol]Ordere d By: Renard Burgos on 07-08-2024 RBC (Bld) [#/Vol] 4.46 10*6/uL Low 4.6-6.2 [facility] White blood cell (WBC) count Ordered By: Renard Burgos on 07-08-2024 WBC (Bld) [#/Vol] 10.3 10*3/uL 4.4-11.0 [facility] Absolute lymphocyte countOrd ered By: Renard Burgos on 07-01-2024 Lymphocytes Auto (Unsp spec) [#/Vol] 2.03 10*3/uL 0.83-4.51 [facility] Absolute neutrophil countOrd ered By: Renard Burgos on 07-01-2024 Neutrophils (Bld) [#/Vol] 7.0 10*3/uL 2.0-7.7 [facility] Automated lymphocyte count a s percentage of total leukocytesOrdered By: Renard Burgos on 07-01-2024 Lymphocytes/100 WBC Auto (Unsp spec) 20.3 % 19-41 [facility] Basophil percentageOrdered B y: Renard Burgos on 07-01-2024 Basophils/100 WBC (Bld) 0.6 % 0-1 [facility] CBC W/Diff, Automatedon Absolute Lymph 2.03 X10 3/uL Normal 0.83-4.51 [facility] Comment on above: Order Comment: 109 Performed By: #### L 100.0100 ####[facility] [address] [place], [place], [address] Absolute Neut 7.0 X10 3/uL Normal 2.0-7.7 [facility] Comment on above: Order Comment: 109 Performed By: #### L 100.0100 ####[facility] [address] [place], [address] Basophils/100 WBC (Bld) 0.6 % Normal 0-1 [facility] Comment on above: Order Comment: 109 Performed By: #### L 100.0100 ####[facility] [address] [place], [address] Eosinophils/100 WBC (Bld) 1.3 % Normal 0-5 [facility] Comment on above: Order Comment: 109 Performed By: #### L 100.0100 ####[facility] [address] [place], [address] Erythrocyte distribution width (RBC) [Ratio] 13.1 % Normal 11.6-14.6 [facility] Comment on above: Order Comment: 109 Performed By: #### L 100.0100 ####[facility] [address] [place], [address] Hematocrit (Bld) [Volume fraction] 41.7 % Normal 40-54 [facility] Comment on above: Order Comment: 109 Performed By: #### L 100.0100 ####[facility] [address] [place], [address] Hemoglobin (Bld) [Mass/Vol] 13.6 g/dL Normal 13.0-16.5 [facility] Comment on above: Order Comment: 109 Performed By: #### L 100.0100 ####[facility] [address] [place], [address] IG% 0.500 Normal 0.0-0.9 [facility] Comment on above: Order Comment: 109 Result Comment: IG% - Immature Granulocytes (promyelocytes, myelocytes andmetamyelocytes) > 1% indicates that a LEFT SHIFT is Present. Performed By: #### L 100.0100 ####[facility] [address] [place], [address] Lymphocytes/100 WBC (Bld) 20.3 % Normal 19-41 [facility] Comment on above: Order Comment: 109 Performed By: #### L 100.0100 ####[facility] [address] [place], [address] MCH (RBC) [Entitic mass] 29.6 pg Normal 27.0-32.0 [facility] Comment on above: Order Comment: 109 Performed By: #### L 100.0100 ####[facility] [address] [place], [address] MCHC (RBC) [Mass/Vol] 32.6 g/dL Normal 32-36 [facility] Comment on above: Order Comment: 109 Performed By: #### L 100.0100 ####[facility] [address] [place], [address] MCV (RBC) [Entitic vol] 90.8 fL Normal 80-94 [facility] Comment on above: Order Comment: 109 Performed By: #### L 100.0100 ####[facility] [address] [place], [address] Monocytes/100 WBC (Bld) 6.8 % Normal 0-10 [facility] Comment on above: Order Comment: 109 Performed By: #### L 100.0100 ####[facility] [address] [place], [address] Neutrophils/100 WBC (Bld) 70.5 % High 47-70 [facility] Comment on above: Order Comment: 109 Performed By: #### L 100.0100 ####[facility] [address] [place], [address] Nucleated RBC (Bld) [#/Vol] 0 10*3/uL Normal 0-5 [facility] Comment on above: Order Comment: 109 Performed By: #### L 100.0100 ####[facility] [address] [place], [address] Platelet mean volume (Bld) [Entitic vol] 11.0 fL Normal 6.2-12.0 [facility] Comment on above: Order Comment: 109 Performed By: #### L 100.0100 ####[facility] [address] [place], [address] Platelets (Bld) [#/Vol] 208 10*3/uL Normal 150-450 [facility] Comment on above: Order Comment: 109 Performed By: #### L 100.0100 ####[facility] [address] [place], [address] RBC (Bld) [#/Vol] 4.59 10*6/uL Low 4.6-6.2 [facility] Comment on above: Order Comment: 109 Performed By: #### L 100.0100 ####[facility] [address] [place], [address] RDW SD 42.8 fl Normal 35.1-43.9 [facility] Comment on above: Order Comment: 109 Performed By: #### L 100.0100 ####[facility] [address] [place], [address] WBC (Bld) [#/Vol] 10.0 10*3/uL Normal 4.4-11.0 [facility] Comment on above: Order Comment: 109 Performed By: #### L 100.0100 ####[facility] [address] [place], [address] Eosinophil percentageOrdered By: Renard Burgos on 07-01-2024 Eosinophils/100 WBC (Bld) 1.3 % 0-5 [facility] Erythrocyte distribution wid th ratioOrdered By: Renard Burgos on 07-01-2024 Erythrocyte distribution width (RBC) [Ratio] 13.1 % 11.6-14.6 [facility] Erythrocyte distribution wid th standard deviationOrdered By: Renard Burgos on 07-01-2024 Erythrocyte distribution width (RBC) [Entitic vol] 42.8 fL 35.1-43.9 [facility] Erythrocyte distribution width (RBC) [Ratio] 42.8 fl 35.1-43.9 [facility] Hematocrit Auto (Bld) [Volum e fraction]Ordered By: Renard Burgos on 07-01-2024 Hematocrit (Bld) [Volume fraction] 41.7 % 40-54 [facility] Hemoglobin measurementOrdere d By: Renard Burgos on 07-01-2024 Hemoglobin (Bld) [Mass/Vol] 13.6 g/dL 13.0-16.5 [facility] Immature granulocytes/100 WB C Auto (Bld)Ordered By: Renard Burgos on 07-01-2024 Immature granulocytes/100 WBC (Bld) 0.500 % 0.0-0.9 [facility] Comment on above: IG% - Immature Granu locytes (promyelocytes, myelocytes and metamyelocytes) > 1% indicates that a LEFT SHIFT is Present. Lymphocytes Auto (Unsp spec) [#/Vol]Ordered By: Renard Burgos on 07-01-2024 Lymphocytes (Bld) [#/Vol] 2.03 10*3/uL 0.83-4.51 [facility] Lymphocytes/100 WBC Auto (Un sp spec)Ordered By: Renard Burgos on 07-01-2024 Lymphocytes/100 WBC (Bld) 20.3 % 19-41 [facility] MCV (mean corpuscular volume ) determinationOrdered By: Renard Burgos on 07-01-2024 MCV (RBC) [Entitic vol] 90.8 fL 80-94 [facility] Mean corpuscular hemoglobin (MCH) determinationOrdered By: Renard Burgos on 07-01-2024 MCH (RBC) [Entitic mass] 29.6 pg 27.0-32.0 [facility] Mean corpuscular hemoglobin concentration (MCHC) determinationOrdered By: Renard Burgos on 07-01-2024 MCHC (RBC) [Mass/Vol] 32.6 g/dL 32-36 [facility] Mean platelet volume determi nationOrdered By: Renard Burgos on 07-01-2024 Platelet mean volume (Bld) [Entitic vol] 11.0 fL 6.2-12.0 [facility] Monocyte percentageOrdered B y: Renard Burgos on 07-01-2024 Monocytes/100 WBC (Bld) 6.8 % 0-10 [facility] Neutrophil percentageOrdered By: Renard Burgos on 07-01-2024 Neutrophils/100 WBC (Bld) 70.5 % High 47-70 [facility] Nucleated red blood cell per centageOrdered By: Renard Burgos on 07-01-2024 Nucleated RBC/100 WBC (Bld) [Ratio] 0 % 0-5 [facility] Platelet countOrdered By: Garrick Bhatt on 07-01-2024 Platelets (Bld) [#/Vol] 208 10*3/uL 150-450 [facility] RBC Auto (Bld) [#/Vol]Ordere d By: Renard Burgos on 07-01-2024 RBC (Bld) [#/Vol] 4.59 10*6/uL Low 4.6-6.2 [facility] White blood cell (WBC) count Ordered By: Renard Burgos on 07-01-2024 WBC (Bld) [#/Vol] 10.0 10*3/uL 4.4-11.0 [facility] Urine Cultureon 06-30-2024 URC Normal [facility] Comment on above: Performed By: #### M 100.2200, L400.0001 ####[facility] [address] [facility] [place], [place], [address] Bilirubin Test strip Ql (U)O rdered By: Renard Burgos on 06-27-2024 Bilirubin Ql (U) Negative Negative [facility] Epithelial cells.squamous LM Ql (Urine sed)Ordered By: Renard Burgos on 06-27-2024 Epithelial cells.squamous LM.HPF (Urine sed) [#/Area] 0 /[HPF] 0-5 [facility] Glucose Ql (U)Ordered By: Garrick Bhatt on 06-27-2024 Urine Glucose (UA) Normal mg/dl Normal [facility] Ketones Test strip Ql (U)Ord ered By: Renard Burgos on 06-27-2024 Ketones Ql (U) Negative Negative [facility] Microscopic analysis of urin e for red blood cells (RBC)Ordered By: Renard Burgos on 06-27-2024 Microscopic analysis of urine for red blood cells (RBC) 0 SEEN /hpf 0-5 [facility] Urine RBC 0 SEEN /hpf 0-5 [facility] Mucus LM Ql (Urine sed)Order ed By: Renard Burgos on 06-27-2024 Mucus Ql (Urine sed) 0 SEEN /hpf [facility] Nitrite Test strip Ql (U)Ord ered By: Renard Burgos on 06-27-2024 Nitrite Ql (U) Negative Negative [facility] Protein Test strip Ql (U)Ord ered By: Renard Burgos on 06-27-2024 Protein Ql (U) 15 mg/dl High Negative [facility] Squamous epithelial cells de tection in urine sediment by light microscopyOrdered By: Renard Burgos on 06-27-2024 Epithelial cells.squamous LM Ql (Urine sed) 0 SEEN /hpf 0-5 [facility] Urinalysis, Completeon 06-27 RBC 0 SEEN Normal 0-5 [facility] Comment on above: Order Comment: [facility] SPECIMEN Performed By: #### M 100.2200, L400.0001 ####[facility] [address] [place], [address] Urine blood detectionOrdered By: Renard Burgos on 06-27-2024 Urine Occult Blood Negative Negative [facility] Urine clarityOrdered By: Lyubov Burgos on 06-27-2024 Clarity (U) Clear Clear [facility] Urine color determinationOrd ered By: Renard Burgos on 06-27-2024 Color (U) Yellow Yellow [facility] Urine cultureOrdered By: Lyubov Burgos on 06-27-2024 Bacteria identified Cx Nom (U) Staphylococcus warneri Abnormal [facility] Bacteria identified Cx Nom (U) Aerococcus viridans. Abnormal [facility] Bacteria identified Cx Nom (U) Presumptive C albicans Abnormal [facility] Bacteria identified Cx Nom (U) Staphylococcus warneri Abnormal [facility] Bacteria identified Cx Nom (U) Aerococcus viridans. Abnormal [facility] Bacteria identified Cx Nom (U) Presumptive C albicans Abnormal [facility] Urine glucose detectionOrder ed By: Renard Burgos on 06-27-2024 Glucose Ql (U) Normal mg/dl Normal [facility] Urine leukocyte esterase det ection by dipstickOrdered By: Renard Burgos on 06-27-2024 Leukocyte esterase Test strip Ql (U) Negative Negative [facility] Urine pHOrdered By: Renard ocampo on 06-27-2024 pH (U) 7.0 [pH] 5.0 - 8.0 [facility] Urine sediment bacteria coun t by microscopy (number/high power field)Ordered By: Renard Burgos on 06-27-2024 Bacteria LM.HPF (Urine sed) [#/Area] 0 /[HPF] None Seen [facility] Urine specific gravity measu rementOrdered By: Renard Burgos on 06-27-2024 Specific gravity (U) [Rel density] 1.010 1.002-1.030 [facility] Urine urobilinogen measureme ntOrdered By: Renard Burgos on 06-27-2024 Urobilinogen Ql (U) 4 mg/dl High Normal [facility] Urobilinogen Ql (U)Ordered B y: Renard Burgos on 06-27-2024 Urobilinogen (U) [Mass/Vol] 4 mg/dL High Normal [facility] White blood cell countOrdere d By: Renard Burgos on 06-27-2024 Urine WBC 0 SEEN /hpf 0-5 [facility] White blood cell count 0 SEEN /hpf 0-5 [facility] [address] CHEST WO IV CONTRASTon CT CHEST [...] 8:07 AM EST Cough x 2months Normal [facility] CT Chest WO contraston 06-26 Nonspecific groundglass densities are noted in the bilateral lower lobes. 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 [facility] Maria Eugenia Ruiz MD - 06/26/2024 Patient Name: [facility]ATH[facility]OPER : 1955 [id number] Exam Date/Time: 06/24/2024 16:30 Procedure: CT CHEST [...] Electronically Signed Date/Time: 06/26/2024 8:07 AM EST [facility] [address] Chest WO contrastOrdered By: Maria Eugenia Ruiz on 06-26-2024 [employer] Work Phone: Absolute lymphocyte countOrd ered By: Renard Burgos on 06-24-2024 Lymphocytes Auto (Unsp spec) [#/Vol] 1.65 10*3/uL 0.83-4.51 [facility] Absolute neutrophil countOrd ered By: Renard Burgos on 06-24-2024 Neutrophils (Bld) [#/Vol] 10.2 10*3/uL High 2.0-7.7 [facility] Automated lymphocyte count a s percentage of total leukocytesOrdered By: Renard Burgos on 06-24-2024 Lymphocytes/100 WBC Auto (Unsp spec) 12.8 % Low 19-41 [facility] Basic Metabolic Profile (BMP )on 06-24-2024 BUN/CRE 24.9 RATIO High 10-20 [facility] Comment on above: Order Comment: 109.1 Performed By: #### L 100.0100, L500.2500 ####[facility] [address] [place], [address] CA,Total 8.3 mg/dL Low 8.5-10.1 [facility] Comment on above: Order Comment: 109.1 Performed By: #### L 100.0100, L500.2500 ####[facility] [address] [place], [address] Chloride [Moles/Vol] 107 mmol/L Normal 98-107 [facility] Comment on above: Order Comment: 109.1 Performed By: #### L 100.0100, L500.2500 ####[facility] [address] [place], [address] CO2 [Moles/Vol] 24.0 mmol/L Normal 21.0-32.0 [facility] Comment on above: Order Comment: 109.1 Performed By: #### L 100.0100, L500.2500 ####[facility] [address] [place], [address] Creatinine [Mass/Vol] 0.60 mg/dL Low 0.70-1.30 [facility] Comment on above: Order Comment: 109.1 Result Comment: The validity of the calculated GFR GFRAA in patients over70 years has not been determined. Clinical correlation isessential. Performed By: #### L 100.0100, L500.2500 ####[facility] [address] [place], [address] EST GFR - AA 172 mL/min Normal >60 [facility] Comment on above: Order Comment: 109.1 Result Comment: Afri can Vietnamese GFR Calc Performed By: #### L 100.0100, L500.2500 ####[facility] [address] [place], [address] GAP 8 Normal 5-15 [facility] Comment on above: Order Comment: 109.1 Performed By: #### L 100.0100, L500.2500 ####[facility] [address] [place], [address] GFR/1.73 sq M.predicted among non-blacks MDRD (S/P/Bld) [Vol rate/Area] 142 mL/min/{1.73_m2} Normal >60 [facility] Comment on above: Order Comment: 109.1 Result Comment: Non- GFR Calc Performed By: #### L 100.0100, L500.2500 ####[facility] [address] [place], [address] Glucose [Mass/Vol] 101 mg/dL Normal 74-106 [facility] Comment on above: Order Comment: 109.1 Result Comment: Fast ing Glucose result from 100 to 125 mg/dLsuggests IMPAIRED HOMEOSTASIS per A.D.A. criteria. Performed By: #### L 100.0100, L500.2500 ####[facility] [address] [place], [address] Potassium [Moles/Vol] 4.1 mmol/L Normal 3.5-5.1 [facility] Comment on above: Order Comment: 109.1 Performed By: #### L 100.0100, L500.2500 ####[facility] [address] [place], [address] Sodium [Moles/Vol] 139 mmol/L Normal 136-145 [facility] Comment on above: Order Comment: 109.1 Performed By: #### L 100.0100, L500.2500 ####[facility] [address] [place], [address] Urea nitrogen [Mass/Vol] 15 mg/dL Normal 7-18 [facility] Comment on above: Order Comment: 109.1 Performed By: #### L 100.0100, L500.2500 ####[facility] [address] [place], [address] Basophil percentageOrdered B y: Renard Burgos on 06-24-2024 Basophils/100 WBC (Bld) 0.5 % 0-1 [facility] Blood urea nitrogen (BUN)/cr eatinine ratioOrdered By: Renard Burgos on 06-24-2024 Urea nitrogen/Creatinine [Mass ratio] 24.9 mg/mg High 10-20 [facility] CBC W/Diff, Automatedon -2 Absolute Lymph 1.65 X10 3/uL Normal 0.83-4.51 [facility] Comment on above: Order Comment: 109.1 Performed By: #### L 100.0100, L500.2500 ####[facility] [address] [place], [address] Absolute Neut 10.2 X10 3/uL High 2.0-7.7 [facility] Comment on above: Order Comment: 109.1 Performed By: #### L 100.0100, L500.2500 ####[facility] [address] [place], [address] Basophils/100 WBC (Bld) 0.5 % Normal 0-1 [facility] Comment on above: Order Comment: 109.1 Performed By: #### L 100.0100, L500.2500 ####[facility] [address] [place], [address] Eosinophils/100 WBC (Bld) 0.8 % Normal 0-5 [facility] Comment on above: Order Comment: 109.1 Performed By: #### L 100.0100, L500.2500 ####[facility] [address] [place], [address] Erythrocyte distribution width (RBC) [Ratio] 13.2 % Normal 11.6-14.6 [facility] Comment on above: Order Comment: 109.1 Performed By: #### L 100.0100, L500.2500 ####[facility] [address] [place], [address] Hematocrit (Bld) [Volume fraction] 41.8 % Normal 40-54 [facility] Comment on above: Order Comment: 109.1 Performed By: #### L 100.0100, L500.2500 ####[facility] [address] [place], [address] Hemoglobin (Bld) [Mass/Vol] 13.6 g/dL Normal 13.0-16.5 [facility] Comment on above: Order Comment: 109.1 Performed By: #### L 100.0100, L500.2500 ####[facility] [address] [place], [address] IG% 0.500 Normal 0.0-0.9 [facility] Comment on above: Order Comment: 109.1 Result Comment: IG% - Immature Granulocytes (promyelocytes, myelocytes andmetamyelocytes) > 1% indicates that a LEFT SHIFT is Present. Performed By: #### L 100.0100, L500.2500 ####[facility] [address] [place], [address] Lymphocytes/100 WBC (Bld) 12.8 % Low 19-41 [facility] Comment on above: Order Comment: 109.1 Performed By: #### L 100.0100, L500.2500 ####[facility] [address] [place], [address] MCH (RBC) [Entitic mass] 30.2 pg Normal 27.0-32.0 [facility] Comment on above: Order Comment: 109.1 Performed By: #### L 100.0100, L500.2500 ####[facility] [address] [place], [address] MCHC (RBC) [Mass/Vol] 32.5 g/dL Normal 32-36 [facility] Comment on above: Order Comment: 109.1 Performed By: #### L 100.0100, L500.2500 ####[facility] [address] [place], [address] MCV (RBC) [Entitic vol] 92.7 fL Normal 80-94 [facility] Comment on above: Order Comment: 109.1 Performed By: #### L 100.0100, L500.2500 ####[facility] [address] [place], [address] Monocytes/100 WBC (Bld) 6.4 % Normal 0-10 [facility] Comment on above: Order Comment: 109.1 Performed By: #### L 100.0100, L500.2500 ####[facility] [address] [place], [address] Neutrophils/100 WBC (Bld) 79.0 % High 47-70 [facility] Comment on above: Order Comment: 109.1 Performed By: #### L 100.0100, L500.2500 ####[facility] [address] [place], [address] Nucleated RBC (Bld) [#/Vol] 0 10*3/uL Normal 0-5 [facility] Comment on above: Order Comment: 109.1 Performed By: #### L 100.0100, L500.2500 ####[facility] [address] [place], [address] Platelet mean volume (Bld) [Entitic vol] 11.3 fL Normal 6.2-12.0 [facility] Comment on above: Order Comment: 109.1 Performed By: #### L 100.0100, L500.2500 ####[facility] [address] [place], [address] Platelets (Bld) [#/Vol] 171 10*3/uL Normal 150-450 [facility] Comment on above: Order Comment: 109.1 Performed By: #### L 100.0100, L500.2500 ####[facility] [address] [place], [address] RBC (Bld) [#/Vol] 4.51 10*6/uL Low 4.6-6.2 [facility] Comment on above: Order Comment: 109.1 Performed By: #### L 100.0100, L500.2500 ####[facility] [address] [place], [address] RDW SD 45.1 fl High 35.1-43.9 [facility] Comment on above: Order Comment: 109.1 Performed By: #### L 100.0100, L500.2500 ####[facility] [address] [place], [address] WBC (Bld) [#/Vol] 12.9 10*3/uL High 4.4-11.0 [facility] Comment on above: Order Comment: 109.1 Performed By: #### L 100.0100, L500.2500 ####[facility] [address] [place], [address] CT Chest WO contraston 06-24 Radiology Study observation (narrative) Estefania smith Carbon dioxide measurementOr dered By: Renard Burgos on 06-24-2024 CO2 [Moles/Vol] 24.0 mmol/L 21.0-32.0 [facility] Chloride measurementOrdered By: Renard Burgos on 06-24-2024 Chloride [Moles/Vol] 107 mmol/L 98-107 [facility] Eosinophil percentageOrdered By: Renard Burgos on 06-24-2024 Eosinophils/100 WBC (Bld) 0.8 % 0-5 [facility] Erythrocyte distribution wid th ratioOrdered By: Renard Burgos on 06-24-2024 Erythrocyte distribution width (RBC) [Ratio] 13.2 % 11.6-14.6 [facility] Erythrocyte distribution wid th standard deviationOrdered By: Renard Burgos on 06-24-2024 Erythrocyte distribution width (RBC) [Entitic vol] 45.1 fL High 35.1-43.9 [facility] Erythrocyte distribution width (RBC) [Ratio] 45.1 fl High 35.1-43.9 [facility] Estimated glomerular filtrat ion rate (GFR) AmericanOrdered By: Renard Burgos on 06-24-2024 Estimated GFR (MDRD) Amer 172 mL/min >60 [facility] Comment on above: GFR Calc Glomerular filtration rate ( GFR) estimationOrdered By: Renard Burgos on 06-24-2024 Estimated GFR (MDRD) Non-Af Amer 142 mL/min >60 [facility] Comment on above: Non- GFR Calc GFR/1.73 sq M.predicted among non-blacks MDRD (S/P/Bld) [Vol rate/Area] 142 mL/min/{1.73_m2} >60 [facility] Comment on above: Non- GFR Calc Glucose measurementOrdered B y: Renard Burgos on 06-24-2024 Glucose [Mass/Vol] 101 mg/dL 74-106 [facility] Comment on above: Fasting Glucose resu lt from 100 to 125 mg/dL suggests IMPAIRED HOMEOSTASIS per A.D.A. criteria. Hematocrit Auto (Bld) [Volum e fraction]Ordered By: Renard Burgos on 06-24-2024 Hematocrit (Bld) [Volume fraction] 41.8 % 40-54 [facility] Hemoglobin measurementOrdere d By: Renard Burgos on 06-24-2024 Hemoglobin (Bld) [Mass/Vol] 13.6 g/dL 13.0-16.5 [facility] Immature granulocytes/100 WB C Auto (Bld)Ordered By: Renard Burgos on 06-24-2024 Immature granulocytes/100 WBC (Bld) 0.500 % 0.0-0.9 [facility] Comment on above: IG% - Immature Granu locytes (promyelocytes, myelocytes and metamyelocytes) > 1% indicates that a LEFT SHIFT is Present. Lymphocytes Auto (Unsp spec) [#/Vol]Ordered By: Renard Burgos on 06-24-2024 Lymphocytes (Bld) [#/Vol] 1.65 10*3/uL 0.83-4.51 [facility] Lymphocytes/100 WBC Auto (Un sp spec)Ordered By: Renard Burgos on 06-24-2024 Lymphocytes/100 WBC (Bld) 12.8 % Low 19-41 [facility] MCV (mean corpuscular volume ) determinationOrdered By: Renard Burgos on 06-24-2024 MCV (RBC) [Entitic vol] 92.7 fL 80-94 [facility] Mean corpuscular hemoglobin (MCH) determinationOrdered By: Renard Burgos on 06-24-2024 MCH (RBC) [Entitic mass] 30.2 pg 27.0-32.0 [facility] Mean corpuscular hemoglobin concentration (MCHC) determinationOrdered By: Renard Burgos on 06-24-2024 MCHC (RBC) [Mass/Vol] 32.5 g/dL 32-36 [facility] Mean platelet volume determi nationOrdered By: Renard Burgos on 06-24-2024 Platelet mean volume (Bld) [Entitic vol] 11.3 fL 6.2-12.0 [facility] Monocyte percentageOrdered B y: Renard Burgos on 06-24-2024 Monocytes/100 WBC (Bld) 6.4 % 0-10 [facility] Neutrophil percentageOrdered By: Renard Burgos on 02-24-2025 Neutrophils/100 WBC (Bld) 79.0 % High 47-70 [facility] Nucleated red blood cell per centageOrdered By: Renard Burgos on 06-24-2024 Nucleated RBC/100 WBC (Bld) [Ratio] 0 % 0-5 [facility] Platelet countOrdered By: Garrick Bhatt on 06-24-2024 Platelets (Bld) [#/Vol] 171 10*3/uL 150-450 [facility] Potassium measurementOrdered By: Renard Burgos on 06-24-2024 Potassium [Moles/Vol] 4.1 mmol/L 3.5-5.1 [facility] RBC Auto (Bld) [#/Vol]Ordere d By: Renard Burgos on 06-24-2024 RBC (Bld) [#/Vol] 4.51 10*6/uL Low 4.6-6.2 [facility] Serum anion gap measurementO rdered By: Renard Burgos on 06-24-2024 Anion gap [Moles/Vol] 8 mmol/L 5-15 [facility] Serum or plasma calcium gordy urement (mass/volume)Ordered By: Renard Burgos on 06-24-2024 Calcium [Mass/Vol] 8.3 mg/dL Low 8.5-10.1 [facility] Serum or plasma creatinine m easurement (mass/volume)Ordered By: Renard Burgos on 06-24-2024 Creatinine [Mass/Vol] 0.60 mg/dL Low 0.70-1.30 [facility] Comment on above: The validity of the calculated GFR & GFRAA in patients over 70 years has not been determined. Clinical correlation is essential. Serum or plasma urea nitroge n measurement (mass/volume)Ordered By: Renard Burgos on 06-24-2024 Urea nitrogen [Mass/Vol] 15 mg/dL 7-18 [facility] Sodium levelOrdered By: Lamine Burgos on 06-24-2024 Sodium [Moles/Vol] 139 mmol/L 136-145 [facility] White blood cell (WBC) count Ordered By: Renard Burgos on 06-24-2024 WBC (Bld) [#/Vol] 12.9 10*3/uL High 4.4-11.0 [facility] Absolute lymphocyte countOrd ered By: Renard Burgos on 06-17-2024 Lymphocytes Auto (Unsp spec) [#/Vol] 2.00 10*3/uL 0.83-4.51 [facility] Absolute neutrophil countOrd ered By: Renard Burgos on 06-17-2024 Neutrophils (Bld) [#/Vol] 5.1 10*3/uL 2.0-7.7 [facility] Automated lymphocyte count a s percentage of total leukocytesOrdered By: Renard Burgos on 06-17-2024 Lymphocytes/100 WBC Auto (Unsp spec) 24.5 % 19-41 [facility] Basophil percentageOrdered B y: Renard Burgos on 06-17-2024 Basophils/100 WBC (Bld) 1.1 % High 0-1 [facility] CBC W/Diff, Automatedon 06-01 Absolute Lymph 2.00 X10 3/uL Normal 0.83-4.51 [facility] Comment on above: Order Comment: 109-1 Performed By: #### L 100.0100 ####[facility] [address] [place], [address] Absolute Neut 5.1 X10 3/uL Normal 2.0-7.7 [facility] Comment on above: Order Comment: 109-1 Performed By: #### L 100.0100 ####[facility] [address] [place], [address] Basophils/100 WBC (Bld) 1.1 % High 0-1 [facility] Comment on above: Order Comment: 109-1 Performed By: #### L 100.0100 ####[facility] [address] [place], [address] Eosinophils/100 WBC (Bld) 3.4 % Normal 0-5 [facility] Comment on above: Order Comment: 109-1 Performed By: #### L 100.0100 ####[facility] [address] [place], [address] Erythrocyte distribution width (RBC) [Ratio] 13.3 % Normal 11.6-14.6 [facility] Comment on above: Order Comment: 109-1 Performed By: #### L 100.0100 ####[facility] [address] [place], [address] Hematocrit (Bld) [Volume fraction] 39.3 % Low 40-54 [facility] Comment on above: Order Comment: 109-1 Performed By: #### L 100.0100 ####[facility] [address] [place], [address] Hemoglobin (Bld) [Mass/Vol] 12.8 g/dL Low 13.0-16.5 [facility] Comment on above: Order Comment: 109-1 Performed By: #### L 100.0100 ####[facility] [address] [place], [address] IG% 0.200 Normal 0.0-0.9 [facility] Comment on above: Order Comment: 109-1 Result Comment: IG% - Immature Granulocytes (promyelocytes, myelocytes andmetamyelocytes) > 1% indicates that a LEFT SHIFT is Present. Performed By: #### L 100.0100 ####[facility] [address] [place], [address] Lymphocytes/100 WBC (Bld) 24.5 % Normal 19-41 [facility] Comment on above: Order Comment: 109-1 Performed By: #### L 100.0100 ####[facility] [address] [place], [address] MCH (RBC) [Entitic mass] 29.6 pg Normal 27.0-32.0 [facility] Comment on above: Order Comment: 109-1 Performed By: #### L 100.0100 ####[facility] [address] [place], [address] MCHC (RBC) [Mass/Vol] 32.6 g/dL Normal 32-36 [facility] Comment on above: Order Comment: 109-1 Performed By: #### L 100.0100 ####[facility] [address] [place], [address] MCV (RBC) [Entitic vol] 90.8 fL Normal 80-94 [facility] Comment on above: Order Comment: 109-1 Performed By: #### L 100.0100 ####[facility] [address] [place], [address] Monocytes/100 WBC (Bld) 8.8 % Normal 0-10 [facility] Comment on above: Order Comment: 109-1 Performed By: #### L 100.0100 ####[facility] [address] [place], [address] Neutrophils/100 WBC (Bld) 62.0 % Normal 47-70 [facility] Comment on above: Order Comment: 109-1 Performed By: #### L 100.0100 ####[facility] [address] [place], [address] Nucleated RBC (Bld) [#/Vol] 0 10*3/uL Normal 0-5 [facility] Comment on above: Order Comment: 109-1 Performed By: #### L 100.0100 ####[facility] [address] [place], [address] Platelet mean volume (Bld) [Entitic vol] 10.9 fL Normal 6.2-12.0 [facility] Comment on above: Order Comment: 109-1 Performed By: #### L 100.0100 ####[facility] [address] [place], [address] Platelets (Bld) [#/Vol] 218 10*3/uL Normal 150-450 [facility] Comment on above: Order Comment: 109-1 Performed By: #### L 100.0100 ####[facility] [address] [place], [place], [phone] RBC (Bld) [#/Vol] 4.33 10*6/uL Low 4.6-6.2 [facility] Comment on above: Order Comment: 109-1 Performed By: #### L 100.0100 ####[facility] [address] [place], [place], [phone] RDW SD 44.0 fl High 35.1-43.9 [facility] Comment on above: Order Comment: 109-1 Performed By: #### L 100.0100 ####[facility] [address] [place], [address] WBC (Bld) [#/Vol] 8.2 10*3/uL Normal 4.4-11.0 [facility] Comment on above: Order Comment: 109-1 Performed By: #### L 100.0100 ####[facility] [address] [place], [place], [phone] Eosinophil percentageOrdered By: Renard Burgos on 06-17-2024 Eosinophils/100 WBC (Bld) 3.4 % 0-5 [facility] Erythrocyte distribution wid th ratioOrdered By: Renard Burgos on 06-17-2024 Erythrocyte distribution width (RBC) [Ratio] 13.3 % 11.6-14.6 [facility] Erythrocyte distribution wid th standard deviationOrdered By: Renard Burgos on 06-17-2024 Erythrocyte distribution width (RBC) [Entitic vol] 44.0 fL High 35.1-43.9 [facility] Erythrocyte distribution width (RBC) [Ratio] 44.0 fl High 35.1-43.9 [facility] Hematocrit Auto (Bld) [Volum e fraction]Ordered By: Renard Burgos on 06-17-2024 Hematocrit (Bld) [Volume fraction] 39.3 % Low 40-54 [facility] Hemoglobin measurementOrdere d By: Renard Burgos on 06-17-2024 Hemoglobin (Bld) [Mass/Vol] 12.8 g/dL Low 13.0-16.5 [facility] Immature granulocytes/100 WB C Auto (Bld)Ordered By: Renard Burgos on 06-17-2024 Immature granulocytes/100 WBC (Bld) 0.200 % 0.0-0.9 [facility] Comment on above: IG% - Immature Granu locytes (promyelocytes, myelocytes and metamyelocytes) > 1% indicates that a LEFT SHIFT is Present. Lymphocytes Auto (Unsp spec) [#/Vol]Ordered By: Renard Burgos on 06-17-2024 Lymphocytes (Bld) [#/Vol] 2.00 10*3/uL 0.83-4.51 [facility] Lymphocytes/100 WBC Auto (Un sp spec)Ordered By: Renard Burgos on 06-17-2024 Lymphocytes/100 WBC (Bld) 24.5 % 19-41 [facility] MCV (mean corpuscular volume ) determinationOrdered By: Renard Burgos on 06-17-2024 MCV (RBC) [Entitic vol] 90.8 fL 80-94 [facility] Mean corpuscular hemoglobin (MCH) determinationOrdered By: Renard Burgos on 06-17-2024 MCH (RBC) [Entitic mass] 29.6 pg 27.0-32.0 [facility] Mean corpuscular hemoglobin concentration (MCHC) determinationOrdered By: Renard Burgos on 06-17-2024 MCHC (RBC) [Mass/Vol] 32.6 g/dL 32-36 [facility] Mean platelet volume determi nationOrdered By: Renard Burgos on 06-17-2024 Platelet mean volume (Bld) [Entitic vol] 10.9 fL 6.2-12.0 [facility] Monocyte percentageOrdered B y: Renard Burgos on 06-17-2024 Monocytes/100 WBC (Bld) 8.8 % 0-10 [facility] Neutrophil percentageOrdered By: Renard Burgos on 06-17-2024 Neutrophils/100 WBC (Bld) 62.0 % 47-70 [facility] Nucleated red blood cell per centageOrdered By: Renard Burgos on 06-17-2024 Nucleated RBC/100 WBC (Bld) [Ratio] 0 % 0-5 [facility] Platelet countOrdered By: Garrick Bhatt on 06-17-2024 Platelets (Bld) [#/Vol] 218 10*3/uL 150-450 [facility] RBC Auto (Bld) [#/Vol]Ordere d By: Renard Burgos on 06-17-2024 RBC (Bld) [#/Vol] 4.33 10*6/uL Low 4.6-6.2 [facility] White blood cell (WBC) count Ordered By: Renard Burgos on 06-17-2024 WBC (Bld) [#/Vol] 8.2 10*3/uL 4.4-11.0 [facility] Absolute lymphocyte countOrd ered By: Renard Burgos on 06-10-2024 Lymphocytes Auto (Unsp spec) [#/Vol] 2.38 10*3/uL 0.83-4.51 [facility] Absolute neutrophil countOrd ered By: Renard Burgos on 06-10-2024 Neutrophils (Bld) [#/Vol] 5.3 10*3/uL 2.0-7.7 [facility] Automated lymphocyte count a s percentage of total leukocytesOrdered By: Renard Burgos on 06-10-2024 Lymphocytes/100 WBC Auto (Unsp spec) 27.5 % 19-41 [facility] Basophil percentageOrdered B y: Renard Burgos on 06-10-2024 Basophils/100 WBC (Bld) 0.7 % 0-1 [facility] CBC W/Diff, Automatedon 06-01 Absolute Lymph 2.38 X10 3/uL Normal 0.83-4.51 [facility] Comment on above: Order Comment: 109.1 Performed By: #### L 100.0100 ####[facility] [address] [place], [place], [id number] Absolute Neut 5.3 X10 3/uL Normal 2.0-7.7 [facility] Comment on above: Order Comment: 109.1 Performed By: #### L 100.0100 ####[facility] [address] [place], [address] Basophils/100 WBC (Bld) 0.7 % Normal 0-1 [facility] Comment on above: Order Comment: 109.1 Performed By: #### L 100.0100 ####[facility] [address] [place], [address] Eosinophils/100 WBC (Bld) 0.7 % Normal 0-5 [facility] Comment on above: Order Comment: 109.1 Performed By: #### L 100.0100 ####[facility] [address] [place], [address] Erythrocyte distribution width (RBC) [Ratio] 13.1 % Normal 11.6-14.6 [facility] Comment on above: Order Comment: 109.1 Performed By: #### L 100.0100 ####[facility] [address] [place], [address] Hematocrit (Bld) [Volume fraction] 41.1 % Normal 40-54 [facility] Comment on above: Order Comment: 109.1 Performed By: #### L 100.0100 ####[facility] [address] [place], [address] Hemoglobin (Bld) [Mass/Vol] 13.5 g/dL Normal 13.0-16.5 [facility] Comment on above: Order Comment: 109.1 Performed By: #### L 100.0100 ####[facility] [address] [place], [address] IG% 0.500 Normal 0.0-0.9 [facility] Comment on above: Order Comment: 109.1 Result Comment: IG% - Immature Granulocytes (promyelocytes, myelocytes andmetamyelocytes) > 1% indicates that a LEFT SHIFT is Present. Performed By: #### L 100.0100 ####[facility] [address] [place], [address] Lymphocytes/100 WBC (Bld) 27.5 % Normal 19-41 [facility] Comment on above: Order Comment: 109.1 Performed By: #### L 100.0100 ####[facility] [address] [place], [address] MCH (RBC) [Entitic mass] 30.1 pg Normal 27.0-32.0 [facility] Comment on above: Order Comment: 109.1 Performed By: #### L 100.0100 ####[facility] [address] [place], [address] MCHC (RBC) [Mass/Vol] 32.8 g/dL Normal 32-36 [facility] Comment on above: Order Comment: 109.1 Performed By: #### L 100.0100 ####[facility] [address] [place], [address] MCV (RBC) [Entitic vol] 91.7 fL Normal 80-94 [facility] Comment on above: Order Comment: 109.1 Performed By: #### L 100.0100 ####[facility] [address] [place], [address] Monocytes/100 WBC (Bld) 9.6 % Normal 0-10 [facility] Comment on above: Order Comment: 109.1 Performed By: #### L 100.0100 ####[facility] [address] [place], [address] Neutrophils/100 WBC (Bld) 61.0 % Normal 47-70 [facility] Comment on above: Order Comment: 109.1 Performed By: #### L 100.0100 ####[facility] [address] [place], [address] Nucleated RBC (Bld) [#/Vol] 0 10*3/uL Normal 0-5 [facility] Comment on above: Order Comment: 109.1 Performed By: #### L 100.0100 ####[facility] [address] [place], [address] Platelet mean volume (Bld) [Entitic vol] 11.0 fL Normal 6.2-12.0 [facility] Comment on above: Order Comment: 109.1 Performed By: #### L 100.0100 ####[facility] [address] [place], [address] Platelets (Bld) [#/Vol] 261 10*3/uL Normal 150-450 [facility] Comment on above: Order Comment: 109.1 Performed By: #### L 100.0100 ####[facility] [address] [place], [address] RBC (Bld) [#/Vol] 4.48 10*6/uL Low 4.6-6.2 [facility] Comment on above: Order Comment: 109.1 Performed By: #### L 100.0100 ####[facility] [address] [place], [address] RDW SD 43.2 fl Normal 35.1-43.9 [facility] Comment on above: Order Comment: 109.1 Performed By: #### L 100.0100 ####[facility] [address] [place], [address] WBC (Bld) [#/Vol] 8.6 10*3/uL Normal 4.4-11.0 [facility] Comment on above: Order Comment: 109.1 Performed By: #### L 100.0100 ####[facility] [address] [place], [address] Eosinophil percentageOrdered By: Renard Burgos on 06-10-2024 Eosinophils/100 WBC (Bld) 0.7 % 0-5 [facility] Erythrocyte distribution wid th ratioOrdered By: Renard Burgos on 06-10-2024 Erythrocyte distribution width (RBC) [Ratio] 13.1 % 11.6-14.6 [facility] Erythrocyte distribution wid th standard deviationOrdered By: Renard Burgos on 06-10-2024 Erythrocyte distribution width (RBC) [Entitic vol] 43.2 fL 35.1-43.9 [facility] Erythrocyte distribution width (RBC) [Ratio] 43.2 fl 35.1-43.9 [facility] Hematocrit Auto (Bld) [Volum e fraction]Ordered By: Renard Burgos on 06-10-2024 Hematocrit (Bld) [Volume fraction] 41.1 % 40-54 [facility] Hemoglobin measurementOrdere d By: Renard Burgos on 06-10-2024 Hemoglobin (Bld) [Mass/Vol] 13.5 g/dL 13.0-16.5 [facility] Immature granulocytes/100 WB C Auto (Bld)Ordered By: Renard Burgos on 06-10-2024 Immature granulocytes/100 WBC (Bld) 0.500 % 0.0-0.9 [facility] Comment on above: IG% - Immature Granu locytes (promyelocytes, myelocytes and metamyelocytes) > 1% indicates that a LEFT SHIFT is Present. Lymphocytes Auto (Unsp spec) [#/Vol]Ordered By: Renard Burgos on 06-10-2024 Lymphocytes (Bld) [#/Vol] 2.38 10*3/uL 0.83-4.51 [facility] Lymphocytes/100 WBC Auto (Un sp spec)Ordered By: Renard Burgos on 06-10-2024 Lymphocytes/100 WBC (Bld) 27.5 % 19-41 [facility] MCV (mean corpuscular volume ) determinationOrdered By: Renard Burgos on 06-10-2024 MCV (RBC) [Entitic vol] 91.7 fL 80-94 [facility] Mean corpuscular hemoglobin (MCH) determinationOrdered By: Renard Burgos on 06-10-2024 MCH (RBC) [Entitic mass] 30.1 pg 27.0-32.0 [facility] Mean corpuscular hemoglobin concentration (MCHC) determinationOrdered By: Renard Burgos on 06-10-2024 MCHC (RBC) [Mass/Vol] 32.8 g/dL 32-36 [facility] Mean platelet volume determi nationOrdered By: Renard Burgos on 06-10-2024 Platelet mean volume (Bld) [Entitic vol] 11.0 fL 6.2-12.0 [facility] Monocyte percentageOrdered B y: Renard Burgos on 06-10-2024 Monocytes/100 WBC (Bld) 9.6 % 0-10 [facility] Neutrophil percentageOrdered By: Renard Burgos on 06-10-2024 Neutrophils/100 WBC (Bld) 61.0 % 47-70 [facility] Nucleated red blood cell per centageOrdered By: Renard Burgos on 06-10-2024 Nucleated RBC/100 WBC (Bld) [Ratio] 0 % 0-5 [facility] Platelet countOrdered By: Garrick Bhatt on 06-10-2024 Platelets (Bld) [#/Vol] 261 10*3/uL 150-450 [facility] RBC Auto (Bld) [#/Vol]Ordere d By: Renard Burgos on 06-10-2024 RBC (Bld) [#/Vol] 4.48 10*6/uL Low 4.6-6.2 [facility] Urine Cultureon 06-10-2024 URC Normal [facility] Comment on above: Performed By: #### M 100.2200, L400.0001 ####[facility] [address] [place], [place], [id number] White blood cell (WBC) count Ordered By: Renard Burgos on 06-10-2024 WBC (Bld) [#/Vol] 8.6 10*3/uL 4.4-11.0 [facility] Bilirubin Test strip Ql (U)O rdered By: Renard Burgos on 06-07-2024 Bilirubin Ql (U) Negative Negative [facility] CBC-Complete Blood Cnt No Di ffon 06-07-2024 Erythrocyte distribution width (RBC) [Ratio] 13.0 % Normal 11.6-14.6 [facility] Comment on above: Order Comment: 109-1 Performed By: #### L 100.0500 ####[facility] [address] [place], [place], [id number] Hematocrit (Bld) [Volume fraction] 39.3 % Low 40-54 [facility] Comment on above: Order Comment: 109-1 Performed By: #### L 100.0500 ####[facility] [address] [place], [address] Hemoglobin (Bld) [Mass/Vol] 13.0 g/dL Normal 13.0-16.5 [facility] Comment on above: Order Comment: 109-1 Performed By: #### L 100.0500 ####[facility] [address] [place], [address] MCH (RBC) [Entitic mass] 30.2 pg Normal 27.0-32.0 [facility] Comment on above: Order Comment: 109-1 Performed By: #### L 100.0500 ####[facility] [address] [place], [address] MCHC (RBC) [Mass/Vol] 33.1 g/dL Normal 32-36 [facility] Comment on above: Order Comment: 109-1 Performed By: #### L 100.0500 ####[facility] [address] [place], [address] MCV (RBC) [Entitic vol] 91.2 fL Normal 80-94 [facility] Comment on above: Order Comment: 109-1 Performed By: #### L 100.0500 ####[facility] [address] [place], [address] Platelet mean volume (Bld) [Entitic vol] 10.8 fL Normal 6.2-12.0 [facility] Comment on above: Order Comment: 109-1 Performed By: #### L 100.0500 ####[facility] [address] [place], [address] Platelets (Bld) [#/Vol] 251 10*3/uL Normal 150-450 [facility] Comment on above: Order Comment: 109-1 Performed By: #### L 100.0500 ####[facility] [address] [place], [address] RBC (Bld) [#/Vol] 4.31 10*6/uL Low 4.6-6.2 [facility] Comment on above: Order Comment: 109-1 Performed By: #### L 100.0500 ####[facility] [address] [place], [address] RDW SD 43.7 fl Normal 35.1-43.9 [facility] Comment on above: Order Comment: 109-1 Performed By: #### L 100.0500 ####[facility] [address] [place], [address] WBC (Bld) [#/Vol] 9.9 10*3/uL Normal 4.4-11.0 [facility] Comment on above: Order Comment: 109-1 Performed By: #### L 100.0500 ####[facility] [address] [place], [address] Epithelial cells.squamous LM Ql (Urine sed)Ordered By: Renard Burgos on 06-07-2024 Epithelial cells.squamous LM.HPF (Urine sed) [#/Area] 0 /[HPF] 0-5 [facility] Erythrocyte distribution wid th ratioOrdered By: Renard Burgos on 06-07-2024 Erythrocyte distribution width (RBC) [Ratio] 13.0 % 11.6-14.6 [facility] Erythrocyte distribution wid th standard deviationOrdered By: Renard Burgos on 06-07-2024 Erythrocyte distribution width (RBC) [Entitic vol] 43.7 fL 35.1-43.9 [facility] Erythrocyte distribution width (RBC) [Ratio] 43.7 fl 35.1-43.9 [facility] Glucose Ql (U)Ordered By: Garrick Bhatt on 06-07-2024 Urine Glucose (UA) Normal mg/dl Normal [facility] Hematocrit Auto (Bld) [Volum e fraction]Ordered By: Renard Burgos on 06-07-2024 Hematocrit (Bld) [Volume fraction] 39.3 % Low 40-54 [facility] Hemoglobin measurementOrdere d By: Renard Burgos on 06-07-2024 Hemoglobin (Bld) [Mass/Vol] 13.0 g/dL 13.0-16.5 [facility] Ketones Test strip Ql (U)Ord ered By: Renard Burgos on 06-07-2024 Ketones Ql (U) Negative Negative [facility] MCV (mean corpuscular volume ) determinationOrdered By: Renard Burgos on 06-07-2024 MCV (RBC) [Entitic vol] 91.2 fL 80-94 [facility] Mean corpuscular hemoglobin (MCH) determinationOrdered By: Renard Burgos on 06-07-2024 MCH (RBC) [Entitic mass] 30.2 pg 27.0-32.0 [facility] Mean corpuscular hemoglobin concentration (MCHC) determinationOrdered By: Renard Burgos on 06-07-2024 MCHC (RBC) [Mass/Vol] 33.1 g/dL 32-36 [facility] Mean platelet volume determi nationOrdered By: Renard Burgos on 06-07-2024 Platelet mean volume (Bld) [Entitic vol] 10.8 fL 6.2-12.0 [facility] Microscopic analysis of urin e for red blood cells (RBC)Ordered By: Renard Burgos on 06-07-2024 Microscopic analysis of urine for red blood cells (RBC) 0 SEEN /hpf 0-5 [facility] Urine RBC 0 SEEN /hpf 0-5 [facility] Mucus LM Ql (Urine sed)Order ed By: Renard Burgos on 06-07-2024 Mucus Ql (Urine sed) 0 SEEN /hpf [facility] Nitrite Test strip Ql (U)Ord ered By: Renard Burgos on 06-07-2024 Nitrite Ql (U) Negative Negative [facility] Platelet countOrdered By: Garrick Bhatt on 06-07-2024 Platelets (Bld) [#/Vol] 251 10*3/uL 150-450 [facility] Protein Test strip Ql (U)Ord ered By: Renard Burgos on 06-07-2024 Protein Ql (U) 15 mg/dl High Negative [facility] RBC Auto (Bld) [#/Vol]Ordere d By: Renard Burgos on 06-07-2024 RBC (Bld) [#/Vol] 4.31 10*6/uL Low 4.6-6.2 [facility] Squamous epithelial cells de tection in urine sediment by light microscopyOrdered By: Renard Burgos on 06-07-2024 Epithelial cells.squamous LM Ql (Urine sed) 0-5 SEEN /hpf 0-5 [facility] Urinalysis, Completeon 06-07 Mucus Ql (Urine sed) 0 SEEN Normal [facility] Comment on above: Order Comment: CLEAN CATCH Performed By: #### M 100.2200, L400.0001 ####[facility] [address] [place], [address] Urine blood detectionOrdered By: Renard Burgos on 06-07-2024 Urine Occult Blood Negative Negative [facility] Urine clarityOrdered By: Lyubov Burgos on 06-07-2024 Clarity (U) Clear Clear [facility] Urine color determinationOrd ered By: Renard Burgos on 06-07-2024 Color (U) Yellow Yellow [facility] Urine cultureOrdered By: Lyubov Burgos on 06-07-2024 Bacteria identified Cx Nom (U) Pseudomonas aeruginosa Abnormal [facility] Bacteria identified Cx Nom (U) Pseudomonas aeruginosa Abnormal [facility] Urine glucose detectionOrder ed By: Renard Burgos on 06-07-2024 Glucose Ql (U) Normal mg/dl Normal [facility] Urine leukocyte esterase det ection by dipstickOrdered By: Renard Burgos on 06-07-2024 Leukocyte esterase Test strip Ql (U) Negative Negative [facility] Urine pHOrdered By: Renard ocampo on 06-07-2024 pH (U) 7.0 [pH] 5.0 - 8.0 [facility] Urine sediment bacteria coun t by microscopy (number/high power field)Ordered By: Renard Burgos on 06-07-2024 Bacteria LM.HPF (Urine sed) [#/Area] 2 /[HPF] None Seen [facility] Urine sediment yeast count b y microscopy (number/high powered field)Ordered By: Renard Burgos on 06-07-2024 Yeast LM.HPF (Urine sed) [#/Area] 1 /[HPF] None Seen [facility] Urine specific gravity measu rementOrdered By: Renard Burgos on 06-07-2024 Specific gravity (U) [Rel density] 1.010 1.002-1.030 [facility] Urine urobilinogen measureme ntOrdered By: Renard Burgos on 06-07-2024 Urobilinogen Ql (U) 1 mg/dl High Normal [facility] Urobilinogen Ql (U)Ordered B y: Renard Burgos on 06-07-2024 Urobilinogen (U) [Mass/Vol] 1 mg/dL High Normal [facility] White blood cell (WBC) count Ordered By: Renard Burgos on 06-07-2024 WBC (Bld) [#/Vol] 9.9 10*3/uL 4.4-11.0 [facility] White blood cell countOrdere d By: Renard Burgos on 06-07-2024 Urine WBC 0-5 SEEN /hpf 0-5 [facility] White blood cell count 0-5 SEEN /hpf 0-5 [facility] Yeast LM.HPF (Urine sed) [#/ Area]Ordered By: Renard Burgos on 06-07-2024 Urine Yeast 1+ /hpf None Seen [facility] Absolute lymphocyte countOrd ered By: Renard Burgos on 06-03-2024 Lymphocytes Auto (Unsp spec) [#/Vol] 1.94 10*3/uL 0.83-4.51 [facility] Absolute neutrophil countOrd ered By: Renard Burgos on 06-03-2024 Neutrophils (Bld) [#/Vol] 9.5 10*3/uL High 2.0-7.7 [facility] Automated lymphocyte count a s percentage of total leukocytesOrdered By: Renard Burgos on 06-03-2024 Lymphocytes/100 WBC Auto (Unsp spec) 15.7 % Low 19-41 [facility] Basophil percentageOrdered B y: Renard Burgos on 06-03-2024 Basophils/100 WBC (Bld) 0.5 % 0-1 [facility] CBC W/Diff, Automatedon 5 Absolute Lymph 1.94 X10 3/uL Normal 0.83-4.51 [facility] Comment on above: Order Comment: 109-1 Performed By: #### L 100.0100 ####[facility] [address] [place], [address] Absolute Neut 9.5 X10 3/uL High 2.0-7.7 [facility] Comment on above: Order Comment: 109-1 Performed By: #### L 100.0100 ####[facility] [address] [place], [address] Basophils/100 WBC (Bld) 0.5 % Normal 0-1 [facility] Comment on above: Order Comment: 109-1 Performed By: #### L 100.0100 ####[facility] [address] [place], [address] Eosinophils/100 WBC (Bld) 0.3 % Normal 0-5 [facility] Comment on above: Order Comment: 109-1 Performed By: #### L 100.0100 ####[facility] [address] [place], [address] Erythrocyte distribution width (RBC) [Ratio] 13.0 % Normal 11.6-14.6 [facility] Comment on above: Order Comment: 109-1 Performed By: #### L 100.0100 ####[facility] [address] [place], [address] Hematocrit (Bld) [Volume fraction] 40.1 % Normal 40-54 [facility] Comment on above: Order Comment: 109-1 Performed By: #### L 100.0100 ####[facility] [address] [place], [address] Hemoglobin (Bld) [Mass/Vol] 13.2 g/dL Normal 13.0-16.5 [facility] Comment on above: Order Comment: 109-1 Performed By: #### L 100.0100 ####[facility] [address] [place], [address] IG% 0.400 Normal 0.0-0.9 [facility] Comment on above: Order Comment: 109-1 Result Comment: IG% - Immature Granulocytes (promyelocytes, myelocytes andmetamyelocytes) > 1% indicates that a LEFT SHIFT is Present. Performed By: #### L 100.0100 ####[facility] [address] [place], [address] Lymphocytes/100 WBC (Bld) 15.7 % Low 19-41 [facility] Comment on above: Order Comment: 109-1 Performed By: #### L 100.0100 ####[facility] [address] [place], [address] MCH (RBC) [Entitic mass] 30.1 pg Normal 27.0-32.0 [facility] Comment on above: Order Comment: 109-1 Performed By: #### L 100.0100 ####[facility] [address] [place], [address] MCHC (RBC) [Mass/Vol] 32.9 g/dL Normal 32-36 [facility] Comment on above: Order Comment: 109-1 Performed By: #### L 100.0100 ####[facility] [address] [place], [address] MCV (RBC) [Entitic vol] 91.3 fL Normal 80-94 [facility] Comment on above: Order Comment: 109-1 Performed By: #### L 100.0100 ####[facility] [address] [place], [address] Monocytes/100 WBC (Bld) 6.6 % Normal 0-10 [facility] Comment on above: Order Comment: 109-1 Performed By: #### L 100.0100 ####[facility] [address] [place], [address] Neutrophils/100 WBC (Bld) 76.5 % High 47-70 [facility] Comment on above: Order Comment: 109-1 Performed By: #### L 100.0100 ####[facility] [address] [place], [address] Nucleated RBC (Bld) [#/Vol] 0 10*3/uL Normal 0-5 [facility] Comment on above: Order Comment: 109-1 Performed By: #### L 100.0100 ####[facility] [address] [place], [address] Platelet mean volume (Bld) [Entitic vol] 11.1 fL Normal 6.2-12.0 [facility] Comment on above: Order Comment: 109-1 Performed By: #### L 100.0100 ####[facility] [address] [place], [address] Platelets (Bld) [#/Vol] 249 10*3/uL Normal 150-450 [facility] Comment on above: Order Comment: 109-1 Performed By: #### L 100.0100 ####[facility] [address] [place], [address] RBC (Bld) [#/Vol] 4.39 10*6/uL Low 4.6-6.2 [facility] Comment on above: Order Comment: 109-1 Performed By: #### L 100.0100 ####[facility] [address] [place], [address] RDW SD 42.8 fl Normal 35.1-43.9 [facility] Comment on above: Order Comment: 109-1 Performed By: #### L 100.0100 ####[facility] [address] [place], [address] WBC (Bld) [#/Vol] 12.4 10*3/uL High 4.4-11.0 [facility] Comment on above: Order Comment: 109-1 Performed By: #### L 100.0100 ####[facility] [address] [place], [address] Eosinophil percentageOrdered By: Renard Burgos on 06-03-2024 Eosinophils/100 WBC (Bld) 0.3 % 0-5 [facility] Erythrocyte distribution wid th ratioOrdered By: Renard Burgos on 06-03-2024 Erythrocyte distribution width (RBC) [Ratio] 13.0 % 11.6-14.6 [facility] Erythrocyte distribution wid th standard deviationOrdered By: Renard Burgos on 06-03-2024 Erythrocyte distribution width (RBC) [Entitic vol] 42.8 fL 35.1-43.9 [facility] Erythrocyte distribution width (RBC) [Ratio] 42.8 fl 35.1-43.9 [facility] Hematocrit Auto (Bld) [Volum e fraction]Ordered By: Renard Burgos on 06-03-2024 Hematocrit (Bld) [Volume fraction] 40.1 % 40-54 [facility] Hemoglobin measurementOrdere d By: Renard Burgos on 06-03-2024 Hemoglobin (Bld) [Mass/Vol] 13.2 g/dL 13.0-16.5 [facility] Immature granulocytes/100 WB C Auto (Bld)Ordered By: Renard Burgos on 06-03-2024 Immature granulocytes/100 WBC (Bld) 0.400 % 0.0-0.9 [facility] Comment on above: IG% - Immature Granu locytes (promyelocytes, myelocytes and metamyelocytes) > 1% indicates that a LEFT SHIFT is Present. Lymphocytes Auto (Unsp spec) [#/Vol]Ordered By: Renard Burgos on 06-03-2024 Lymphocytes (Bld) [#/Vol] 1.94 10*3/uL 0.83-4.51 [facility] Lymphocytes/100 WBC Auto (Un sp spec)Ordered By: Renard Burgos on 06-03-2024 Lymphocytes/100 WBC (Bld) 15.7 % Low 19-41 [facility] MCV (mean corpuscular volume ) determinationOrdered By: Renard Burgos on 06-03-2024 MCV (RBC) [Entitic vol] 91.3 fL 80-94 [facility] Mean corpuscular hemoglobin (MCH) determinationOrdered By: Renard Burgos on 06-03-2024 MCH (RBC) [Entitic mass] 30.1 pg 27.0-32.0 [facility] Mean corpuscular hemoglobin concentration (MCHC) determinationOrdered By: Renard Burgos on 06-03-2024 MCHC (RBC) [Mass/Vol] 32.9 g/dL 32-36 [facility] Mean platelet volume determi nationOrdered By: Renard Burgos on 06-03-2024 Platelet mean volume (Bld) [Entitic vol] 11.1 fL 6.2-12.0 [facility] Monocyte percentageOrdered B y: Renard Burgos on 06-03-2024 Monocytes/100 WBC (Bld) 6.6 % 0-10 [facility] Neutrophil percentageOrdered By: Renard Burgos on 06-03-2024 Neutrophils/100 WBC (Bld) 76.5 % High 47-70 [facility] Nucleated red blood cell per centageOrdered By: Renard Burgos on 06-03-2024 Nucleated RBC/100 WBC (Bld) [Ratio] 0 % 0-5 [facility] Platelet countOrdered By: Garrick Bhatt on 06-03-2024 Platelets (Bld) [#/Vol] 249 10*3/uL 150-450 [facility] RBC Auto (Bld) [#/Vol]Ordere d By: Renard Burgos on 06-03-2024 RBC (Bld) [#/Vol] 4.39 10*6/uL Low 4.6-6.2 [facility] White blood cell (WBC) count Ordered By: Renard Burgos on 06-03-2024 WBC (Bld) [#/Vol] 12.4 10*3/uL High 4.4-11.0 [facility] Absolute lymphocyte countOrd ered By: Renard Burgos on 05-27-2024 Lymphocytes Auto (Unsp spec) [#/Vol] 1.81 10*3/uL 0.83-4.51 [facility] Absolute neutrophil countOrd ered By: Renard Burgos on 05-27-2024 Neutrophils (Bld) [#/Vol] 5.0 10*3/uL 2.0-7.7 [facility] Automated lymphocyte count a s percentage of total leukocytesOrdered By: Renard Burgos on 05-27-2024 Lymphocytes/100 WBC Auto (Unsp spec) 24.4 % 19-41 [facility] Basophil percentageOrdered B y: Renard Burgos on 05-27-2024 Basophils/100 WBC (Bld) 0.5 % 0-1 [facility] System CBC W/Diff, Automatedon 05-02 Absolute Lymph 1.81 X10 3/uL Normal 0.83-4.51 [facility] Comment on above: Order Comment: 109.1 Performed By: #### L 100.0100 ####[facility] [address] [place], [address] Absolute Neut 5.0 X10 3/uL Normal 2.0-7.7 [facility] Comment on above: Order Comment: 109.1 Performed By: #### L 100.0100 ####[facility] [address] [place], [address] Basophils/100 WBC (Bld) 0.5 % Normal 0-1 [facility] Comment on above: Order Comment: 109.1 Performed By: #### L 100.0100 ####[facility] [address] [place], [address] Eosinophils/100 WBC (Bld) 0.5 % Normal 0-5 [facility] Comment on above: Order Comment: 109.1 Performed By: #### L 100.0100 ####[facility] [address] [place], [address] Erythrocyte distribution width (RBC) [Ratio] 12.8 % Normal 11.6-14.6 [facility] Comment on above: Order Comment: 109.1 Performed By: #### L 100.0100 ####[facility] [address] [place], [address] Hematocrit (Bld) [Volume fraction] 39.8 % Low 40-54 [facility] Comment on above: Order Comment: 109.1 Performed By: #### L 100.0100 ####[facility] [address] [place], [address] Hemoglobin (Bld) [Mass/Vol] 13.2 g/dL Normal 13.0-16.5 [facility] Comment on above: Order Comment: 109.1 Performed By: #### L 100.0100 ####[facility] [address] [place], [address] IG% 0.400 Normal 0.0-0.9 [facility] Comment on above: Order Comment: 109.1 Result Comment: IG% - Immature Granulocytes (promyelocytes, myelocytes andmetamyelocytes) > 1% indicates that a LEFT SHIFT is Present. Performed By: #### L 100.0100 ####[facility] [address] [place], [address] Lymphocytes/100 WBC (Bld) 24.4 % Normal 19-41 [facility] Comment on above: Order Comment: 109.1 Performed By: #### L 100.0100 ####[facility] [address] [place], [address] MCH (RBC) [Entitic mass] 30.2 pg Normal 27.0-32.0 [facility] Comment on above: Order Comment: 109.1 Performed By: #### L 100.0100 ####[facility] [address] [place], [address] MCHC (RBC) [Mass/Vol] 33.2 g/dL Normal 32-36 [facility] Comment on above: Order Comment: 109.1 Performed By: #### L 100.0100 ####[facility] [address] [place], [address] MCV (RBC) [Entitic vol] 91.1 fL Normal 80-94 [facility] Comment on above: Order Comment: 109.1 Performed By: #### L 100.0100 ####[facility] [address] [place], [address] Monocytes/100 WBC (Bld) 7.0 % Normal 0-10 [facility] Comment on above: Order Comment: 109.1 Performed By: #### L 100.0100 ####[facility] [address] [place], [address] Neutrophils/100 WBC (Bld) 67.2 % Normal 47-70 [facility] Comment on above: Order Comment: 109.1 Performed By: #### L 100.0100 ####[facility] [address] [place], [address] Nucleated RBC (Bld) [#/Vol] 0 10*3/uL Normal 0-5 [facility] Comment on above: Order Comment: 109.1 Performed By: #### L 100.0100 ####[facility] [address] [place], [address] Platelet mean volume (Bld) [Entitic vol] 10.3 fL Normal 6.2-12.0 [facility] Comment on above: Order Comment: 109.1 Performed By: #### L 100.0100 ####[facility] [address] [place], [address] Platelets (Bld) [#/Vol] 239 10*3/uL Normal 150-450 [facility] Comment on above: Order Comment: 109.1 Performed By: #### L 100.0100 ####[facility] [address] [place], [address] RBC (Bld) [#/Vol] 4.37 10*6/uL Low 4.6-6.2 [facility] Comment on above: Order Comment: 109.1 Performed By: #### L 100.0100 ####[facility] [address] [place], [address] RDW SD 42.5 fl Normal 35.1-43.9 [facility] Comment on above: Order Comment: 109.1 Performed By: #### L 100.0100 ####[facility] [address] [place], [address] WBC (Bld) [#/Vol] 7.4 10*3/uL Normal 4.4-11.0 [facility] Comment on above: Order Comment: 109.1 Performed By: #### L 100.0100 ####[facility] [address] [place], [address] Eosinophil percentageOrdered By: Renard Burgos on 05-27-2024 Eosinophils/100 WBC (Bld) 0.5 % 0-5 [facility] Erythrocyte distribution wid th ratioOrdered By: Renard Burgos on 05-27-2024 Erythrocyte distribution width (RBC) [Ratio] 12.8 % 11.6-14.6 [facility] Erythrocyte distribution wid th standard deviationOrdered By: Renard Burgos on 05-27-2024 Erythrocyte distribution width (RBC) [Entitic vol] 42.5 fL 35.1-43.9 [facility] Erythrocyte distribution width (RBC) [Ratio] 42.5 fl 35.1-43.9 [facility] Hematocrit Auto (Bld) [Volum e fraction]Ordered By: Renard Burgos on 05-27-2024 Hematocrit (Bld) [Volume fraction] 39.8 % Low 40-54 [facility] Hemoglobin measurementOrdere d By: Renard Burgos on 05-27-2024 Hemoglobin (Bld) [Mass/Vol] 13.2 g/dL 13.0-16.5 [facility] Immature granulocytes/100 WB C Auto (Bld)Ordered By: Renard Burgos on 05-27-2024 Immature granulocytes/100 WBC (Bld) 0.400 % 0.0-0.9 [facility] Comment on above: IG% - Immature Granu locytes (promyelocytes, myelocytes and metamyelocytes) > 1% indicates that a LEFT SHIFT is Present. Lymphocytes Auto (Unsp spec) [#/Vol]Ordered By: Renard Burgos on 05-27-2024 Lymphocytes (Bld) [#/Vol] 1.81 10*3/uL 0.83-4.51 [facility] Lymphocytes/100 WBC Auto (Un sp spec)Ordered By: Renard Burgos on 05-27-2024 Lymphocytes/100 WBC (Bld) 24.4 % 19-41 [facility] MCV (mean corpuscular volume ) determinationOrdered By: Renard Burgos on 05-27-2024 MCV (RBC) [Entitic vol] 91.1 fL 80-94 [facility] Mean corpuscular hemoglobin (MCH) determinationOrdered By: Renard Burgos on 05-27-2024 MCH (RBC) [Entitic mass] 30.2 pg 27.0-32.0 [facility] Mean corpuscular hemoglobin concentration (MCHC) determinationOrdered By: Renard Burgos on 05-27-2024 MCHC (RBC) [Mass/Vol] 33.2 g/dL 32-36 [facility] Mean platelet volume determi nationOrdered By: Renard Burgos on 05-27-2024 Platelet mean volume (Bld) [Entitic vol] 10.3 fL 6.2-12.0 [facility] Monocyte percentageOrdered B y: Renard Burgos on 05-27-2024 Monocytes/100 WBC (Bld) 7.0 % 0-10 [facility] Neutrophil percentageOrdered By: Renard Burgos on 05-27-2024 Neutrophils/100 WBC (Bld) 67.2 % 47-70 [facility] Nucleated red blood cell per centageOrdered By: Renard Burgos on 05-27-2024 Nucleated RBC/100 WBC (Bld) [Ratio] 0 % 0-5 [facility] Platelet countOrdered By: Garrick Bhatt on 05-27-2024 Platelets (Bld) [#/Vol] 239 10*3/uL 150-450 [facility] RBC Auto (Bld) [#/Vol]Ordere d By: Renard Burgos on 05-27-2024 RBC (Bld) [#/Vol] 4.37 10*6/uL Low 4.6-6.2 [facility] White blood cell (WBC) count Ordered By: Renard Burgos on 05-27-2024 WBC (Bld) [#/Vol] 7.4 10*3/uL 4.4-11.0 [facility] Absolute lymphocyte countOrd ered By: Renard Burgos on 05-20-2024 Lymphocytes Auto (Unsp spec) [#/Vol] 1.73 10*3/uL 0.83-4.51 [facility] Absolute neutrophil countOrd ered By: Renard Burgos on 05-20-2024 Neutrophils (Bld) [#/Vol] 7.0 10*3/uL 2.0-7.7 [facility] Automated blood erythrocyte countOrdered By: Renard Burgos on 05-20-2024 RBC (Bld) [#/Vol] 4.74 10*6/uL Normal 4.6-6.2 [facility] Comment on above: Order Comment: 109-1 Performed By: #### L 100.0100 ####[facility] [address] [place], [place], [phone] Automated blood hematocrit ( percentage)Ordered By: Renard Burgos on 05-20-2024 Hematocrit (Bld) [Volume fraction] 43.6 % Normal 40-54 [facility] Comment on above: Order Comment: 109-1 Performed By: #### L 100.0100 ####[facility] [address] [place], [address] Automated lymphocyte count a s percentage of total leukocytesOrdered By: Renard Burgos on 05-20-2024 Lymphocytes/100 WBC (Bld) 17.7 % Low - [facility] Comment on above: Order Comment: 109-1 Performed By: #### L 100.0100 ####[facility] [address] [place], [address] Lymphocytes/100 WBC Auto (Unsp spec) 17.7 % Low - [facility] Basophil percentageOrdered B y: Renard Burgos on 05-20-2024 Basophils/100 WBC (Bld) 0.5 % Normal 0-1 [facility] Comment on above: Order Comment: 109-1 Performed By: #### L 100.0100 ####[facility] [address] [place], [address] CBC W/Diff, Automatedon 05-02 Absolute Lymph 1.73 X10 3/uL Normal 0.83-4.51 [facility] Comment on above: Order Comment: 109-1 Performed By: #### L 100.0100 ####[facility] [address] [place], [address] Absolute Neut 7.0 X10 3/uL Normal 2.0-7.7 [facility] Comment on above: Order Comment: 109-1 Performed By: #### L 100.0100 ####[facility] [address] [place], [address] IG% 0.500 Normal 0.0-0.9 [facility] Comment on above: Order Comment: 109-1 Result Comment: IG% - Immature Granulocytes (promyelocytes, myelocytes andmetamyelocytes) > 1% indicates that a LEFT SHIFT is Present. Performed By: #### L 100.0100 ####[facility] [address] [place], [address] Nucleated RBC (Bld) [#/Vol] 0 10*3/uL Normal 0-5 [facility] Comment on above: Order Comment: 109-1 Performed By: #### L 100.0100 ####[facility] [address] [place], [address] RDW SD 42.5 fl Normal 35.1-43.9 [facility] Comment on above: Order Comment: 109-1 Performed By: #### L 100.0100 ####[facility] [address] [place], [address] Eosinophil percentageOrdered By: Renard Burgos on 05-20-2024 Eosinophils/100 WBC (Bld) 0.5 % Normal 0-5 [facility] Comment on above: Order Comment: 109-1 Performed By: #### L 100.0100 ####[facility] [address] [place], [place], [phone] Erythrocyte distribution wid th ratioOrdered By: Renard Burgos on 05-20-2024 Erythrocyte distribution width (RBC) [Ratio] 12.6 % Normal 11.6-14.6 [facility] Comment on above: Order Comment: 109-1 Performed By: #### L 100.0100 ####[facility] [address] [place], [place], [phone]13) Erythrocyte distribution wid th standard deviationOrdered By: Renard Burgos on 05-20-2024 Erythrocyte distribution width (RBC) [Entitic vol] 42.5 fL 35.1-43.9 [facility] Erythrocyte distribution width (RBC) [Ratio] 42.5 fl 35.1-43.9 [facility] Hemoglobin measurementOrdere d By: Renard Burgos on 05-20-2024 Hemoglobin (Bld) [Mass/Vol] 14.4 g/dL Normal 13.0-16.5 [facility] Comment on above: Order Comment: 109-1 Performed By: #### L 100.0100 ####[facility] [address] [place], [address] Immature granulocytes/100 WB C Auto (Bld)Ordered By: Renard Burgos on 05-20-2024 Immature granulocytes/100 WBC (Bld) 0.500 % 0.0-0.9 [facility] Comment on above: IG% - Immature Granu locytes (promyelocytes, myelocytes and metamyelocytes) > 1% indicates that a LEFT SHIFT is Present. Lymphocytes Auto (Unsp spec) [#/Vol]Ordered By: Renard Burgos on 05-20-2024 Lymphocytes (Bld) [#/Vol] 1.73 10*3/uL 0.83-4.51 [facility] MCV (mean corpuscular volume ) determinationOrdered By: Renard Burgos on 05-20-2024 MCV (RBC) [Entitic vol] 92.0 fL Normal 80-94 [facility] Comment on above: Order Comment: 109-1 Performed By: #### L 100.0100 ####[facility] [address] [place], [place], [id number] Mean corpuscular hemoglobin (MCH) determinationOrdered By: Renard Burgos on 05-20-2024 MCH (RBC) [Entitic mass] 30.4 pg Normal 27.0-32.0 [facility] Comment on above: Order Comment: 109-1 Performed By: #### L 100.0100 ####[facility] [address] [place], [place], [id number] Mean corpuscular hemoglobin concentration (MCHC) determinationOrdered By: Renard uBrgos on 05-20-2024 MCHC (RBC) [Mass/Vol] 33.0 g/dL Normal 32-36 [facility] Comment on above: Order Comment: 109-1 Performed By: #### L 100.0100 ####[facility] [address] [place], [place], [id number] Mean platelet volume determi nationOrdered By: Renard Burgos on 05-20-2024 Platelet mean volume (Bld) [Entitic vol] 10.7 fL Normal 6.2-12.0 [facility] Comment on above: Order Comment: 109-1 Performed By: #### L 100.0100 ####[facility] [address] [place], [place], [phone] Monocyte percentageOrdered B y: Renard Burgos on 05-20-2024 Monocytes/100 WBC (Bld) 9.4 % Normal 0-10 [facility] Comment on above: Order Comment: 109-1 Performed By: #### L 100.0100 ####[facility] [address] [place], [address] Neutrophil percentageOrdered By: Renard Burgos on 05-20-2024 Neutrophils/100 WBC (Bld) 71.4 % High 47-70 [facility] Comment on above: Order Comment: 109-1 Performed By: #### L 100.0100 ####[facility] [address] [place], [address] Nucleated red blood cell per centageOrdered By: Renard Burgos on 05-20-2024 Nucleated RBC/100 WBC (Bld) [Ratio] 0 % 0-5 [facility] Platelet countOrdered By: Garrick Bhatt on 05-20-2024 Platelets (Bld) [#/Vol] 239 10*3/uL Normal 150-450 [facility] Comment on above: Order Comment: 109-1 Performed By: #### L 100.0100 ####[facility] [address] [place], [address] White blood cell (WBC) count Ordered By: Renard Burgos on 05-20-2024 WBC (Bld) [#/Vol] 9.8 10*3/uL Normal 4.4-11.0 [facility] Comment on above: Order Comment: 109-1 Performed By: #### L 100.0100 ####[facility] [address] [place], [address] Absolute lymphocyte countOrd ered By: Renard Burgos on 05-13-2024 Lymphocytes Auto (Unsp spec) [#/Vol] 2.10 10*3/uL 0.83-4.51 [facility] Absolute neutrophil countOrd ered By: Renard Burgos on 05-13-2024 Neutrophils (Bld) [#/Vol] 6.2 10*3/uL 2.0-7.7 [facility] Automated lymphocyte count a s percentage of total leukocytesOrdered By: Renard Burgos on 05-13-2024 Lymphocytes/100 WBC Auto (Unsp spec) 22.8 % 19-41 [facility] Basophil percentageOrdered B y: Renard Burgos on 05-13-2024 Basophils/100 WBC (Bld) 0.5 % 0-1 [facility] CBC W/Diff, Automatedon 05-01 Absolute Lymph 2.10 X10 3/uL Normal 0.83-4.51 [facility] Comment on above: Order Comment: 109 Performed By: #### L 100.0100 ####[facility] [address] [place], [address] Absolute Neut 6.2 X10 3/uL Normal 2.0-7.7 [facility] Comment on above: Order Comment: 109 Performed By: #### L 100.0100 ####[facility] [address] [place], [address] Basophils/100 WBC (Bld) 0.5 % Normal 0-1 [facility] Comment on above: Order Comment: 109 Performed By: #### L 100.0100 ####[facility] [address] [place], [address] Eosinophils/100 WBC (Bld) 0.5 % Normal 0-5 [facility] Comment on above: Order Comment: 109 Performed By: #### L 100.0100 ####[facility] [address] [place], [address] Erythrocyte distribution width (RBC) [Ratio] 12.9 % Normal 11.6-14.6 [facility] Comment on above: Order Comment: 109 Performed By: #### L 100.0100 ####[facility] [address] [place], [address] Hematocrit (Bld) [Volume fraction] 42.5 % Normal 40-54 [facility] Comment on above: Order Comment: 109 Performed By: #### L 100.0100 ####[facility] [address] [place], [address] Hemoglobin (Bld) [Mass/Vol] 14.2 g/dL Normal 13.0-16.5 [facility] Comment on above: Order Comment: 109 Performed By: #### L 100.0100 ####[facility] [address] [place], [address] IG% 0.300 Normal 0.0-0.9 [facility] Comment on above: Order Comment: 109 Result Comment: IG% - Immature Granulocytes (promyelocytes, myelocytes andmetamyelocytes) > 1% indicates that a LEFT SHIFT is Present. Performed By: #### L 100.0100 ####[facility] [address] [place], [address] Lymphocytes/100 WBC (Bld) 22.8 % Normal 19-41 [facility] Comment on above: Order Comment: 109 Performed By: #### L 100.0100 ####[facility] [address] [place], [address] MCH (RBC) [Entitic mass] 30.3 pg Normal 27.0-32.0 [facility] Comment on above: Order Comment: 109 Performed By: #### L 100.0100 ####[facility] [address] [place], [address] MCHC (RBC) [Mass/Vol] 33.4 g/dL Normal 32-36 [facility] Comment on above: Order Comment: 109 Performed By: #### L 100.0100 ####[facility] [address] [place], [address] MCV (RBC) [Entitic vol] 90.6 fL Normal 80-94 [facility] Comment on above: Order Comment: 109 Performed By: #### L 100.0100 ####[facility] [address] [place], [address] Monocytes/100 WBC (Bld) 8.7 % Normal 0-10 [facility] Comment on above: Order Comment: 109 Performed By: #### L 100.0100 ####[facility] [address] [place], [address] Neutrophils/100 WBC (Bld) 67.2 % Normal 47-70 [facility] Comment on above: Order Comment: 109 Performed By: #### L 100.0100 ####[facility] [address] [place], [address] Nucleated RBC (Bld) [#/Vol] 0 10*3/uL Normal 0-5 [facility] Comment on above: Order Comment: 109 Performed By: #### L 100.0100 ####[facility] [address] [place], [address] Platelet mean volume (Bld) [Entitic vol] 11.1 fL Normal 6.2-12.0 [facility] Comment on above: Order Comment: 109 Performed By: #### L 100.0100 ####[facility] [address] [place], [address] Platelets (Bld) [#/Vol] 218 10*3/uL Normal 150-450 [facility] Comment on above: Order Comment: 109 Performed By: #### L 100.0100 ####[facility] [address] [place], [address] RBC (Bld) [#/Vol] 4.69 10*6/uL Normal 4.6-6.2 [facility] Comment on above: Order Comment: 109 Performed By: #### L 100.0100 ####[facility] [address] [place], [address] RDW SD 42.3 fl Normal 35.1-43.9 [facility] Comment on above: Order Comment: 109 Performed By: #### L 100.0100 ####[facility] [address] [place], [address] WBC (Bld) [#/Vol] 9.2 10*3/uL Normal 4.4-11.0 [facility] Comment on above: Order Comment: 109 Performed By: #### L 100.0100 ####[facility] [address] [place], [address] Eosinophil percentageOrdered By: Renard Burgos on 05-13-2024 Eosinophils/100 WBC (Bld) 0.5 % 0-5 [facility] Erythrocyte distribution wid th ratioOrdered By: Renard Burgos on 05-13-2024 Erythrocyte distribution width (RBC) [Ratio] 12.9 % 11.6-14.6 [facility] Erythrocyte distribution wid th standard deviationOrdered By: Renard Burgos on 05-13-2024 Erythrocyte distribution width (RBC) [Entitic vol] 42.3 fL 35.1-43.9 [facility] Erythrocyte distribution width (RBC) [Ratio] 42.3 fl 35.1-43.9 [facility] Hematocrit Auto (Bld) [Volum e fraction]Ordered By: Renard Burgos on 05-13-2024 Hematocrit (Bld) [Volume fraction] 42.5 % 40-54 [facility] Hemoglobin measurementOrdere d By: Renard Burgos on 05-13-2024 Hemoglobin (Bld) [Mass/Vol] 14.2 g/dL 13.0-16.5 [facility] Immature granulocytes/100 WB C Auto (Bld)Ordered By: Renard Burgos on 05-13-2024 Immature granulocytes/100 WBC (Bld) 0.300 % 0.0-0.9 [facility] Comment on above: IG% - Immature Granu locytes (promyelocytes, myelocytes and metamyelocytes) > 1% indicates that a LEFT SHIFT is Present. Lymphocytes Auto (Unsp spec) [#/Vol]Ordered By: Renard Burgos on 05-13-2024 Lymphocytes (Bld) [#/Vol] 2.10 10*3/uL 0.83-4.51 [facility] Lymphocytes/100 WBC Auto (Un sp spec)Ordered By: Renard Burgos on 05-13-2024 Lymphocytes/100 WBC (Bld) 22.8 % 19-41 [facility] MCV (mean corpuscular volume ) determinationOrdered By: Renard Burgos on 05-13-2024 MCV (RBC) [Entitic vol] 90.6 fL 80-94 [facility] Mean corpuscular hemoglobin (MCH) determinationOrdered By: Renard Burgos on 05-13-2024 MCH (RBC) [Entitic mass] 30.3 pg 27.0-32.0 [facility] Mean corpuscular hemoglobin concentration (MCHC) determinationOrdered By: Renard Burgos on 05-13-2024 MCHC (RBC) [Mass/Vol] 33.4 g/dL 32-36 [facility] Mean platelet volume determi nationOrdered By: Renard Burgos on 05-13-2024 Platelet mean volume (Bld) [Entitic vol] 11.1 fL 6.2-12.0 [facility] Monocyte percentageOrdered B y: Renard Burgos on 05-13-2024 Monocytes/100 WBC (Bld) 8.7 % 0-10 [facility] Neutrophil percentageOrdered By: Renard Burgos on 05-13-2024 Neutrophils/100 WBC (Bld) 67.2 % 47-70 [facility] Nucleated red blood cell per centageOrdered By: Renard Burgos on 05-13-2024 Nucleated RBC/100 WBC (Bld) [Ratio] 0 % 0-5 [facility] Platelet countOrdered By: Garrick Bhatt on 05-13-2024 Platelets (Bld) [#/Vol] 218 10*3/uL 150-450 [facility] RBC Auto (Bld) [#/Vol]Ordere d By: Renard Burgos on 05-13-2024 RBC (Bld) [#/Vol] 4.69 10*6/uL 4.6-6.2 [facility] White blood cell (WBC) count Ordered By: Renard Burgos on 05-13-2024 WBC (Bld) [#/Vol] 9.2 10*3/uL 4.4-11.0 [facility] Absolute neutrophil countOrd ered By: Renard Burgos on 05-06-2024 Neutrophils (Bld) [#/Vol] 5.9 10*3/uL 2.0-7.7 [facility] Automated blood erythrocyte countOrdered By: Renard Burgos on 05-06-2024 RBC (Bld) [#/Vol] 4.85 10*6/uL Normal 4.6-6.2 [facility] Comment on above: Order Comment: 109-1 Performed By: #### L 100.0100 ####[facility] [address] [place], [address] Automated blood hematocrit ( percentage)Ordered By: Renard Brugos on 05-06-2024 Hematocrit (Bld) [Volume fraction] 45.0 % Normal 40-54 [facility] Comment on above: Order Comment: 109-1 Performed By: #### L 100.0100 ####[facility] [address] [place], [address] Automated lymphocyte count a s percentage of total leukocytesOrdered By: Renard Burgos on 05-06-2024 Lymphocytes/100 WBC (Bld) 24.4 % Normal 19-41 [facility] Comment on above: Order Comment: 109-1 Performed By: #### L 100.0100 ####[facility] [address] [place], [address] Basophil percentageOrdered B y: Renard Burgos on 05-06-2024 Basophils/100 WBC (Bld) 0.5 % Normal 0-1 [facility] Comment on above: Order Comment: 109-1 Performed By: #### L 100.0100 ####[facility] [address] [place], [address] CBC W/Diff, Automatedon Absolute Lymph 2.22 X10 3/uL Normal 0.83-4.51 [facility] Comment on above: Order Comment: 109-1 Performed By: #### L 100.0100 ####[facility] [address] [place], [address] Absolute Neut 5.9 X10 3/uL Normal 2.0-7.7 [facility] Comment on above: Order Comment: 109-1 Performed By: #### L 100.0100 ####[facility] [address] [place], [address] IG% 0.500 Normal 0.0-0.9 [facility] Comment on above: Order Comment: 109-1 Result Comment: IG% - Immature Granulocytes (promyelocytes, myelocytes andmetamyelocytes) > 1% indicates that a LEFT SHIFT is Present. Performed By: #### L 100.0100 ####[facility] [address] [place], [address] Nucleated RBC (Bld) [#/Vol] 0 10*3/uL Normal 0-5 [facility] Comment on above: Order Comment: 109-1 Performed By: #### L 100.0100 ####[facility] [address] [place], [address] RDW SD 43.9 fl Normal 35.1-43.9 [facility] Comment on above: Order Comment: 109-1 Performed By: #### L 100.0100 ####[facility] [address] [place], [address] Eosinophil percentageOrdered By: Renard Burgos on 05-06-2024 Eosinophils/100 WBC (Bld) 0.4 % Normal 0-5 [facility] Comment on above: Order Comment: 109-1 Performed By: #### L 100.0100 ####[facility] [address] [place], [address] Erythrocyte distribution wid th ratioOrdered By: Renard Burgos on 05-06-2024 Erythrocyte distribution width (RBC) [Ratio] 13.0 % Normal 11.6-14.6 [facility] Comment on above: Order Comment: 109-1 Performed By: #### L 100.0100 ####[facility] [address] [place], [address] Erythrocyte distribution wid th standard deviationOrdered By: Renard Burgos on 05-06-2024 Erythrocyte distribution width (RBC) [Entitic vol] 43.9 fL 35.1-43.9 [facility] Hemoglobin measurementOrdere d By: Renard Burgos on 05-06-2024 Hemoglobin (Bld) [Mass/Vol] 14.5 g/dL Normal 13.0-16.5 [facility] Comment on above: Order Comment: 109-1 Performed By: #### L 100.0100 ####[facility] [address] [place], [address] Immature granulocytes/100 WB C Auto (Bld)Ordered By: Renard Burgos on 05-06-2024 Immature granulocytes/100 WBC (Bld) 0.500 % 0.0-0.9 [facility] Comment on above: IG% - Immature Granu locytes (promyelocytes, myelocytes and metamyelocytes) > 1% indicates that a LEFT SHIFT is Present. Lymphocytes Auto (Unsp spec) [#/Vol]Ordered By: Renard Burgos on 05-06-2024 Lymphocytes (Bld) [#/Vol] 2.22 10*3/uL 0.83-4.51 [facility] MCV (mean corpuscular volume ) determinationOrdered By: Renard Burgos on 05-06-2024 MCV (RBC) [Entitic vol] 92.8 fL Normal 80-94 [facility] Comment on above: Order Comment: 109-1 Performed By: #### L 100.0100 ####[facility] [address] [place], [place], [phone] Mean corpuscular hemoglobin (MCH) determinationOrdered By: Renard Burgos on 05-06-2024 MCH (RBC) [Entitic mass] 29.9 pg Normal 27.0-32.0 [facility] Comment on above: Order Comment: 109-1 Performed By: #### L 100.0100 ####[facility] [address] [place], [place], [phone] Mean corpuscular hemoglobin concentration (MCHC) determinationOrdered By: Renard Burgos on 05-06-2024 MCHC (RBC) [Mass/Vol] 32.2 g/dL Normal 32-36 [facility] Comment on above: Order Comment: 109-1 Performed By: #### L 100.0100 ####[facility] [address] [place], [address] Mean platelet volume determi nationOrdered By: Renard Burgos on 05-06-2024 Platelet mean volume (Bld) [Entitic vol] 11.4 fL Normal 6.2-12.0 [facility] Comment on above: Order Comment: 109-1 Performed By: #### L 100.0100 ####[facility] [address] [place], [address] Monocyte percentageOrdered B y: Renard Burgos on 05-06-2024 Monocytes/100 WBC (Bld) 9.7 % Normal 0-10 [facility] Comment on above: Order Comment: 109-1 Performed By: #### L 100.0100 ####[facility] [address] [place], [address] Neutrophil percentageOrdered By: Renard Burgos on 05-06-2024 Neutrophils/100 WBC (Bld) 64.5 % Normal 47-70 [facility] Comment on above: Order Comment: 109-1 Performed By: #### L 100.0100 ####[facility] [address] [place], [address] Nucleated red blood cell per centageOrdered By: Renard Burgos on 05-06-2024 Nucleated RBC/100 WBC (Bld) [Ratio] 0 % 0-5 [facility] Platelet countOrdered By: Garrick Bhatt on 05-06-2024 Platelets (Bld) [#/Vol] 201 10*3/uL Normal 150-450 [facility] Comment on above: Order Comment: 109-1 Performed By: #### L 100.0100 ####[facility] [address] [place], [address] White blood cell (WBC) count Ordered By: Renard Burgos on 05-06-2024 WBC (Bld) [#/Vol] 9.1 10*3/uL Normal 4.4-11.0 [facility] Comment on above: Order Comment: 109-1 Performed By: #### L 100.0100 ####[facility] [address] [place], [address] 36on 05-03-2024 36 Gissel is calling to let Dr. Burgos know that the medication he prescribed he not certified, she is going to fax the information to the office. [phone] Normal [facility] Absolute neutrophil countOrd ered By: Renard Burgos on 04-29-2024 Neutrophils (Bld) [#/Vol] 6.3 10*3/uL 2.0-7.7 [facility] Basophil percentageOrdered B y: Renard Burgos on 04-29-2024 Basophils/100 WBC (Bld) 0.4 % 0-1 [facility] CBC W/Diff, Automatedon - Absolute Lymph 2.11 X10 3/uL Normal 0.83-4.51 [facility] Comment on above: Order Comment: 109.1 Performed By: #### L 100.0100 ####[facility] [address] [place], [address] Absolute Neut 6.3 X10 3/uL Normal 2.0-7.7 [facility] Comment on above: Order Comment: 109.1 Performed By: #### L 100.0100 ####[facility] [address] [place], [address] Basophils/100 WBC (Bld) 0.4 % Normal 0-1 [facility] Comment on above: Order Comment: 109.1 Performed By: #### L 100.0100 ####[facility] [address] [place], [address] Eosinophils/100 WBC (Bld) 0.4 % Normal 0-5 [facility] Comment on above: Order Comment: 109.1 Performed By: #### L 100.0100 ####[facility] [address] [place], [address] Erythrocyte distribution width (RBC) [Ratio] 12.6 % Normal 11.6-14.6 [facility] Comment on above: Order Comment: 109.1 Performed By: #### L 100.0100 ####[facility] [address] [place], [address] Hematocrit (Bld) [Volume fraction] 41.6 % Normal 40-54 [facility] Comment on above: Order Comment: 109.1 Performed By: #### L 100.0100 ####[facility] [address] [place], [address] Hemoglobin (Bld) [Mass/Vol] 13.7 g/dL Normal 13.0-16.5 [facility] Comment on above: Order Comment: 109.1 Performed By: #### L 100.0100 ####[facility] [address] [place], [address] IG% 0.400 Normal 0.0-0.9 [facility] Comment on above: Order Comment: 109.1 Result Comment: IG% - Immature Granulocytes (promyelocytes, myelocytes andmetamyelocytes) > 1% indicates that a LEFT SHIFT is Present. Performed By: #### L 100.0100 ####[facility] [address] [place], [address] Lymphocytes/100 WBC (Bld) 22.6 % Normal 19-41 [facility] Comment on above: Order Comment: 109.1 Performed By: #### L 100.0100 ####[facility] [address] [place], [address] MCH (RBC) [Entitic mass] 30.1 pg Normal 27.0-32.0 [facility] Comment on above: Order Comment: 109.1 Performed By: #### L 100.0100 ####[facility] [address] [place], [address] MCHC (RBC) [Mass/Vol] 32.9 g/dL Normal 32-36 [facility] Comment on above: Order Comment: 109.1 Performed By: #### L 100.0100 ####[facility] [address] [place], [address] MCV (RBC) [Entitic vol] 91.4 fL Normal 80-94 [facility] Comment on above: Order Comment: 109.1 Performed By: #### L 100.0100 ####[facility] [address] [place], [address] Monocytes/100 WBC (Bld) 9.3 % Normal 0-10 [facility] Comment on above: Order Comment: 109.1 Performed By: #### L 100.0100 ####[facility] [address] [place], [address] Neutrophils/100 WBC (Bld) 66.9 % Normal 47-70 [facility] Comment on above: Order Comment: 109.1 Performed By: #### L 100.0100 ####[facility] [address] [place], [address] Nucleated RBC (Bld) [#/Vol] 0 10*3/uL Normal 0-5 [facility] Comment on above: Order Comment: 109.1 Performed By: #### L 100.0100 ####[facility] [address] [place], [address] Platelet mean volume (Bld) [Entitic vol] 11.0 fL Normal 6.2-12.0 [facility] Comment on above: Order Comment: 109.1 Performed By: #### L 100.0100 ####[facility] [address] [place], [address] Platelets (Bld) [#/Vol] 211 10*3/uL Normal 150-450 [facility] Comment on above: Order Comment: 109.1 Performed By: #### L 100.0100 ####[facility] [address] [place], [address] RBC (Bld) [#/Vol] 4.55 10*6/uL Low 4.6-6.2 [facility] Comment on above: Order Comment: 109.1 Performed By: #### L 100.0100 ####[facility] [address] [place], [address] RDW SD 41.5 fl Normal 35.1-43.9 [facility] Comment on above: Order Comment: 109.1 Performed By: #### L 100.0100 ####[facility] [address] [place], [address] WBC (Bld) [#/Vol] 9.4 10*3/uL Normal 4.4-11.0 [facility] Comment on above: Order Comment: 109.1 Performed By: #### L 100.0100 ####[facility] [address] [place], [address] Eosinophil percentageOrdered By: Renard Burgos on 04-29-2024 Eosinophils/100 WBC (Bld) 0.4 % 0-5 [facility] Erythrocyte distribution wid th ratioOrdered By: Renard Burgos on 04-29-2024 Erythrocyte distribution width (RBC) [Ratio] 12.6 % 11.6-14.6 [facility] Erythrocyte distribution wid th standard deviationOrdered By: Renard Burgos on 04-29-2024 Erythrocyte distribution width (RBC) [Entitic vol] 41.5 fL 35.1-43.9 [facility] Hematocrit Auto (Bld) [Volum e fraction]Ordered By: Renard Burgos on 04-29-2024 Hematocrit (Bld) [Volume fraction] 41.6 % 40-54 [facility] Hemoglobin measurementOrdere d By: Renard Burgos on 04-29-2024 Hemoglobin (Bld) [Mass/Vol] 13.7 g/dL 13.0-16.5 [facility] Immature granulocytes/100 WB C Auto (Bld)Ordered By: Renard Burgos on 04-29-2024 Immature granulocytes/100 WBC (Bld) 0.400 % 0.0-0.9 [facility] Comment on above: IG% - Immature Granu locytes (promyelocytes, myelocytes and metamyelocytes) > 1% indicates that a LEFT SHIFT is Present. Lymphocytes Auto (Unsp spec) [#/Vol]Ordered By: Renard Burgos on 04-29-2024 Lymphocytes (Bld) [#/Vol] 2.11 10*3/uL 0.83-4.51 [facility] Lymphocytes/100 WBC Auto (Un sp spec)Ordered By: Renard Burgos on 04-29-2024 Lymphocytes/100 WBC (Bld) 22.6 % 19-41 [facility] MCV (mean corpuscular volume ) determinationOrdered By: Renard Burgos on 04-29-2024 MCV (RBC) [Entitic vol] 91.4 fL 80-94 [facility] Mean corpuscular hemoglobin (MCH) determinationOrdered By: Renard Burgos on 04-29-2024 MCH (RBC) [Entitic mass] 30.1 pg 27.0-32.0 [facility] Mean corpuscular hemoglobin concentration (MCHC) determinationOrdered By: Renard Burgos on 04-29-2024 MCHC (RBC) [Mass/Vol] 32.9 g/dL 32-36 [facility] Mean platelet volume determi nationOrdered By: Renard Burgos on 04-29-2024 Platelet mean volume (Bld) [Entitic vol] 11.0 fL 6.2-12.0 [facility] Monocyte percentageOrdered B y: Renard Burgos on 04-29-2024 Monocytes/100 WBC (Bld) 9.3 % 0-10 [facility] Neutrophil percentageOrdered By: Renard Burgos on 04-29-2024 Neutrophils/100 WBC (Bld) 66.9 % 47-70 [facility] Nucleated red blood cell per centageOrdered By: Renard Burgos on 04-29-2024 Nucleated RBC/100 WBC (Bld) [Ratio] 0 % 0-5 [facility] Platelet countOrdered By: Garrick pulido Loretta on 04-29-2024 Platelets (Bld) [#/Vol] 211 10*3/uL 150-450 [facility] RBC Auto (Bld) [#/Vol]Ordere d By: Renard Burgos on 04-29-2024 RBC (Bld) [#/Vol] 4.55 10*6/uL Low 4.6-6.2 [facility] White blood cell (WBC) count Ordered By: Renard Burgos on 04-29-2024 WBC (Bld) [#/Vol] 9.4 10*3/uL 4.4-11.0 [facility] Absolute neutrophil countOrd ered By: Renard Burgos on 04-22-2024 Neutrophils (Bld) [#/Vol] 8.1 10*3/uL High 2.0-7.7 [facility] Basophil percentageOrdered B y: Renard Burgos on 04-22-2024 Basophils/100 WBC (Bld) 0.5 % 0-1 [facility] CBC W/Diff, Automatedon 04-01 Absolute Lymph 2.61 X10 3/uL Normal 0.83-4.51 [facility] Comment on above: Order Comment: 109-1 Performed By: #### L 100.0100 ####[facility] [address] [place], [address] Absolute Neut 8.1 X10 3/uL High 2.0-7.7 [facility] Comment on above: Order Comment: 109-1 Performed By: #### L 100.0100 ####[facility] [address] [place], [address] Basophils/100 WBC (Bld) 0.5 % Normal 0-1 [facility] Comment on above: Order Comment: 109-1 Performed By: #### L 100.0100 ####[facility] [address] [place], [address] Eosinophils/100 WBC (Bld) 0.4 % Normal 0-5 [facility] Comment on above: Order Comment: 109-1 Performed By: #### L 100.0100 ####[facility] [address] [place], [address] Erythrocyte distribution width (RBC) [Ratio] 12.6 % Normal 11.6-14.6 [facility] Comment on above: Order Comment: 109-1 Performed By: #### L 100.0100 ####[facility] [address] [place], [address] Hematocrit (Bld) [Volume fraction] 44.5 % Normal 40-54 [facility] Comment on above: Order Comment: 109-1 Performed By: #### L 100.0100 ####[facility] [address] [place], [address] Hemoglobin (Bld) [Mass/Vol] 14.3 g/dL Normal 13.0-16.5 [facility] Comment on above: Order Comment: 109-1 Performed By: #### L 100.0100 ####[facility] [address] [place], [address] IG% 0.300 Normal 0.0-0.9 [facility] Comment on above: Order Comment: 109-1 Result Comment: IG% - Immature Granulocytes (promyelocytes, myelocytes andmetamyelocytes) > 1% indicates that a LEFT SHIFT is Present. Performed By: #### L 100.0100 ####[facility] [address] [place], [address] Lymphocytes/100 WBC (Bld) 22.0 % Normal 19-41 [facility] Comment on above: Order Comment: 109-1 Performed By: #### L 100.0100 ####[facility] [address] [place], [address] MCH (RBC) [Entitic mass] 29.7 pg Normal 27.0-32.0 [facility] Comment on above: Order Comment: 109-1 Performed By: #### L 100.0100 ####[facility] [address] [place], [address] MCHC (RBC) [Mass/Vol] 32.1 g/dL Normal 32-36 [facility] Comment on above: Order Comment: 109-1 Performed By: #### L 100.0100 ####[facility] [address] [place], [address] MCV (RBC) [Entitic vol] 92.5 fL Normal 80-94 [facility] Comment on above: Order Comment: 109-1 Performed By: #### L 100.0100 ####[facility] [address] [place], [address] Monocytes/100 WBC (Bld) 8.3 % Normal 0-10 [facility] Comment on above: Order Comment: 109-1 Performed By: #### L 100.0100 ####[facility] [address] [place], [address] Neutrophils/100 WBC (Bld) 68.5 % Normal 47-70 [facility] Comment on above: Order Comment: 109-1 Performed By: #### L 100.0100 ####[facility] [address] [place], [address] Nucleated RBC (Bld) [#/Vol] 0 10*3/uL Normal 0-5 [facility] Comment on above: Order Comment: 109-1 Performed By: #### L 100.0100 ####[facility] [address] [place], [address] Platelet mean volume (Bld) [Entitic vol] 11.0 fL Normal 6.2-12.0 [facility] Comment on above: Order Comment: 109-1 Performed By: #### L 100.0100 ####[facility] [address] [place], [address] Platelets (Bld) [#/Vol] 190 10*3/uL Normal 150-450 [facility] Comment on above: Order Comment: 109-1 Performed By: #### L 100.0100 ####[facility] [address] [place], [address] RBC (Bld) [#/Vol] 4.81 10*6/uL Normal 4.6-6.2 [facility] Comment on above: Order Comment: 109-1 Performed By: #### L 100.0100 ####[facility] [address] [place], [address] RDW SD 43.0 fl Normal 35.1-43.9 [facility] Comment on above: Order Comment: 109-1 Performed By: #### L 100.0100 ####[facility] [address] [place], [address] WBC (Bld) [#/Vol] 11.9 10*3/uL High 4.4-11.0 [facility] Comment on above: Order Comment: 109-1 Performed By: #### L 100.0100 ####[facility] [address] [place], [address] Eosinophil percentageOrdered By: Renard Burgos on 04-22-2024 Eosinophils/100 WBC (Bld) 0.4 % 0-5 [facility] Erythrocyte distribution wid th ratioOrdered By: Renard Burgos on 04-22-2024 Erythrocyte distribution width (RBC) [Ratio] 12.6 % 11.6-14.6 [facility] Erythrocyte distribution wid th standard deviationOrdered By: Renard Burgos on 04-22-2024 Erythrocyte distribution width (RBC) [Entitic vol] 43.0 fL 35.1-43.9 [facility] Hematocrit Auto (Bld) [Volum e fraction]Ordered By: Renard Burgos on 04-22-2024 Hematocrit (Bld) [Volume fraction] 44.5 % 40-54 [facility] Hemoglobin measurementOrdere d By: Renard Burgos on 04-22-2024 Hemoglobin (Bld) [Mass/Vol] 14.3 g/dL 13.0-16.5 [facility] Immature granulocytes/100 WB C Auto (Bld)Ordered By: Renard Burgos on 04-22-2024 Immature granulocytes/100 WBC (Bld) 0.300 % 0.0-0.9 [facility] Comment on above: IG% - Immature Granu locytes (promyelocytes, myelocytes and metamyelocytes) > 1% indicates that a LEFT SHIFT is Present. Lymphocytes Auto (Unsp spec) [#/Vol]Ordered By: Renard Burgos on 04-22-2024 Lymphocytes (Bld) [#/Vol] 2.61 10*3/uL 0.83-4.51 [facility] Lymphocytes/100 WBC Auto (Un sp spec)Ordered By: Renard Burgos on 04-22-2024 Lymphocytes/100 WBC (Bld) 22.0 % 19-41 [facility] MCV (mean corpuscular volume ) determinationOrdered By: Renard Burgos on 04-22-2024 MCV (RBC) [Entitic vol] 92.5 fL 80-94 [facility] Mean corpuscular hemoglobin (MCH) determinationOrdered By: Renadr Burgos on 04-22-2024 MCH (RBC) [Entitic mass] 29.7 pg 27.0-32.0 [facility] Mean corpuscular hemoglobin concentration (MCHC) determinationOrdered By: Renard Burgos on 04-22-2024 MCHC (RBC) [Mass/Vol] 32.1 g/dL 32-36 [facility] Mean platelet volume determi nationOrdered By: Renard Burgos on 04-22-2024 Platelet mean volume (Bld) [Entitic vol] 11.0 fL 6.2-12.0 [facility] Monocyte percentageOrdered B y: Renard Burgos on 04-22-2024 Monocytes/100 WBC (Bld) 8.3 % 0-10 [facility] Neutrophil percentageOrdered By: Renard Burgos on 04-22-2024 Neutrophils/100 WBC (Bld) 68.5 % 47-70 [facility] Nucleated red blood cell per centageOrdered By: Renard Burgos on 04-22-2024 Nucleated RBC/100 WBC (Bld) [Ratio] 0 % 0-5 [facility] Platelet countOrdered By: Garrick Bhatt on 04-22-2024 Platelets (Bld) [#/Vol] 190 10*3/uL 150-450 [facility] RBC Auto (Bld) [#/Vol]Ordere d By: Renard Burgos on 04-22-2024 RBC (Bld) [#/Vol] 4.81 10*6/uL 4.6-6.2 [facility] White blood cell (WBC) count Ordered By: Renard Burgos on 04-22-2024 WBC (Bld) [#/Vol] 11.9 10*3/uL High 4.4-11.0 [facility] Absolute neutrophil countOrd ered By: Renard Burgos on 04-15-2024 Neutrophils (Bld) [#/Vol] 8.7 10*3/uL High 2.0-7.7 [facility] Basophil percentageOrdered B y: Renard Burgos on 04-15-2024 Basophils/100 WBC (Bld) 0.3 % 0-1 [facility] Bilirubin, totalOrdered By: Renard Burgos on 04-15-2024 Bilirubin [Mass/Vol] 0.30 mg/dL 0.20-1.00 [facility] Comment on above: For patients on eltr ombopag therapy, use of Dimension [place] TBIL is not recommended. Bilirubin.direct [Mass/Vol]O rdered By: Renard Burgos on 04-15-2024 Direct Bilirubin < 0.05 mg/dL 0.00-0.30 [facility] CBC W/Diff, Automatedon 03-31 Absolute Lymph 1.93 X10 3/uL Normal 0.83-4.51 [facility] Comment on above: Order Comment: 109-1 Performed By: #### L 100.0100, L500.3400 ####[facility] [address] [place], [address] Absolute Neut 8.7 X10 3/uL High 2.0-7.7 [facility] Comment on above: Order Comment: 109-1 Performed By: #### L 100.0100, L500.3400 ####[facility] [address] [place], [address] Basophils/100 WBC (Bld) 0.3 % Normal 0-1 [facility] Comment on above: Order Comment: 109-1 Performed By: #### L 100.0100, L500.3400 ####[facility] [address] [place], [address] Eosinophils/100 WBC (Bld) 0.4 % Normal 0-5 [facility] Comment on above: Order Comment: 109-1 Performed By: #### L 100.0100, L500.3400 ####[facility] [address] [place], [address] Erythrocyte distribution width (RBC) [Ratio] 12.8 % Normal 11.6-14.6 [facility] Comment on above: Order Comment: 109-1 Performed By: #### L 100.0100, L500.3400 ####[facility] [address] [place], [address] Hematocrit (Bld) [Volume fraction] 42.5 % Normal 40-54 [facility] Comment on above: Order Comment: 109-1 Performed By: #### L 100.0100, L500.3400 ####[facility] [address] [place], [address] Hemoglobin (Bld) [Mass/Vol] 13.7 g/dL Normal 13.0-16.5 [facility] Comment on above: Order Comment: 109-1 Performed By: #### L 100.0100, L500.3400 ####[facility] [address] [place], [address] IG% 0.400 Normal 0.0-0.9 [facility] Comment on above: Order Comment: 109-1 Result Comment: IG% - Immature Granulocytes (promyelocytes, myelocytes andmetamyelocytes) > 1% indicates that a LEFT SHIFT is Present. Performed By: #### L 100.0100, L500.3400 ####[facility] [address] [place], [address] Lymphocytes/100 WBC (Bld) 16.9 % Low 19-41 [facility] Comment on above: Order Comment: 109-1 Performed By: #### L 100.0100, L500.3400 ####[facility] [address] [place], [address] MCH (RBC) [Entitic mass] 29.5 pg Normal 27.0-32.0 [facility] Comment on above: Order Comment: 109-1 Performed By: #### L 100.0100, L500.3400 ####[facility] [address] [place], [address] MCHC (RBC) [Mass/Vol] 32.2 g/dL Normal 32-36 [facility] Comment on above: Order Comment: 109-1 Performed By: #### L 100.0100, L500.3400 ####[facility] [address] [place], [address] MCV (RBC) [Entitic vol] 91.6 fL Normal 80-94 [facility] Comment on above: Order Comment: 109-1 Performed By: #### L 100.0100, L500.3400 ####[facility] [address] [place], [address] Monocytes/100 WBC (Bld) 6.0 % Normal 0-10 [facility] Comment on above: Order Comment: 109-1 Performed By: #### L 100.0100, L500.3400 ####[facility] [address] [place], [address] Neutrophils/100 WBC (Bld) 76.0 % High 47-70 [facility] Comment on above: Order Comment: 109-1 Performed By: #### L 100.0100, L500.3400 ####[facility] [address] [place], [address] Nucleated RBC (Bld) [#/Vol] 0 10*3/uL Normal 0-5 [facility] Comment on above: Order Comment: 109-1 Performed By: #### L 100.0100, L500.3400 ####[facility] [address] [place], [address] Platelet mean volume (Bld) [Entitic vol] 11.1 fL Normal 6.2-12.0 [facility] Comment on above: Order Comment: 109-1 Performed By: #### L 100.0100, L500.3400 ####[facility] [address] [place], [address] Platelets (Bld) [#/Vol] 197 10*3/uL Normal 150-450 [facility] Comment on above: Order Comment: 109-1 Performed By: #### L 100.0100, L500.3400 ####[facility] [address] [place], [address] RBC (Bld) [#/Vol] 4.64 10*6/uL Normal 4.6-6.2 [facility] Comment on above: Order Comment: 109-1 Performed By: #### L 100.0100, L500.3400 ####[facility] [address] [place], [address] RDW SD 42.5 fl Normal 35.1-43.9 [facility] Comment on above: Order Comment: 109-1 Performed By: #### L 100.0100, L500.3400 ####[facility] [address] [place], [address] WBC (Bld) [#/Vol] 11.4 10*3/uL High 4.4-11.0 [facility] Comment on above: Order Comment: 109-1 Performed By: #### L 100.0100, L500.3400 ####[facility] [address] [place], [place], [id number] Eosinophil percentageOrdered By: Renard Burgos on 04-15-2024 Eosinophils/100 WBC (Bld) 0.4 % 0-5 [facility] Erythrocyte distribution wid th ratioOrdered By: Renard Burgos on 04-15-2024 Erythrocyte distribution width (RBC) [Ratio] 12.8 % 11.6-14.6 [facility] Erythrocyte distribution wid th standard deviationOrdered By: Renard Burgos on 04-15-2024 Erythrocyte distribution width (RBC) [Entitic vol] 42.5 fL 35.1-43.9 [facility] Hematocrit Auto (Bld) [Volum e fraction]Ordered By: Renard Burgos on 04-15-2024 Hematocrit (Bld) [Volume fraction] 42.5 % 40-54 [facility] Hemoglobin measurementOrdere d By: Renard Burgos on 04-15-2024 Hemoglobin (Bld) [Mass/Vol] 13.7 g/dL 13.0-16.5 [facility] Immature granulocytes/100 WB C Auto (Bld)Ordered By: Renard Burgos on 04-15-2024 Immature granulocytes/100 WBC (Bld) 0.400 % 0.0-0.9 [facility] Comment on above: IG% - Immature Granu locytes (promyelocytes, myelocytes and metamyelocytes) > 1% indicates that a LEFT SHIFT is Present. Laboratory - Chemistry and C hemistry - challengeOrdered By: Renard Burgos on 04-15-2024 AST [Catalytic activity/Vol] 18 U/L 15-37 [facility] Comment on above: Slight Hemolysis, Re sult may be falsely increased. Liver Profileon 04-15-2024 Albumin [Mass/Vol] 2.9 g/dL Low 3.2-5.0 [facility] Comment on above: Order Comment: 109-1 Performed By: #### L 100.0100, L500.3400 ####[facility] [address] [place], [address] ALK P 126 U/L High 45-117 [facility] Comment on above: Order Comment: 109-1 Performed By: #### L 100.0100, L500.3400 ####[facility] [address] [place], [address] ALT [Catalytic activity/Vol] 21 U/L Normal 16-61 [facility] Comment on above: Order Comment: 109-1 Performed By: #### L 100.0100, L500.3400 ####[facility] [address] [place], [address] AST [Catalytic activity/Vol] 18 U/L Normal 15-37 [facility] Comment on above: Order Comment: 109-1 Result Comment: Slig ht Hemolysis, Result may be falsely increased. Performed By: #### L 100.0100, L500.3400 ####[facility] [address] [place], [address] Bilirubin [Mass/Vol] 0.30 mg/dL Normal 0.20-1.00 [facility] Comment on above: Order Comment: 109-1 Result Comment: For patients on eltrombopag therapy, use of Dimension [place] TBIL is not recommended. Performed By: #### L 100.0100, L500.3400 ####[facility] [address] [place], [address] D BILI < 0.05 Normal 0.00-0.30 [facility] Comment on above: Order Comment: 109-1 Performed By: #### L 100.0100, L500.3400 ####[facility] [address] [place], [address] Globulin (S) [Mass/Vol] 3.0 g/dL Normal 2.2-4.2 [facility] Comment on above: Order Comment: 109-1 Performed By: #### L 100.0100, L500.3400 ####[facility] [address] [place], [address] T PROT 5.9 g/dL Low 6.4-8.2 [facility] Comment on above: Order Comment: 109-1 Performed By: #### L 100.0100, L500.3400 ####[facility] [address] [place], [address] Lymphocytes Auto (Unsp spec) [#/Vol]Ordered By: Renard Burgos on 04-15-2024 Lymphocytes (Bld) [#/Vol] 1.93 10*3/uL 0.83-4.51 [facility] Lymphocytes/100 WBC Auto (Un sp spec)Ordered By: Renard Burgos on 04-15-2024 Lymphocytes/100 WBC (Bld) 16.9 % Low 19-41 [facility] MCV (mean corpuscular volume ) determinationOrdered By: Renard Burgos on 04-15-2024 MCV (RBC) [Entitic vol] 91.6 fL 80-94 [facility] Mean corpuscular hemoglobin (MCH) determinationOrdered By: Renard Burgos on 04-15-2024 MCH (RBC) [Entitic mass] 29.5 pg 27.0-32.0 [facility] Mean corpuscular hemoglobin concentration (MCHC) determinationOrdered By: Renard Burgos on 04-15-2024 MCHC (RBC) [Mass/Vol] 32.2 g/dL 32-36 [facility] Mean platelet volume determi nationOrdered By: Renard Burgos on 04-15-2024 Platelet mean volume (Bld) [Entitic vol] 11.1 fL 6.2-12.0 [facility] Monocyte percentageOrdered B y: Renard Burgos on 04-15-2024 Monocytes/100 WBC (Bld) 6.0 % 0-10 [facility] Neutrophil percentageOrdered By: Renard Burgos on 04-15-2024 Neutrophils/100 WBC (Bld) 76.0 % High 47-70 [facility] Nucleated red blood cell per centageOrdered By: Renard Burgos on 04-15-2024 Nucleated RBC/100 WBC (Bld) [Ratio] 0 % 0-5 [facility] Platelet countOrdered By: Garrick Bhatt on 04-15-2024 Platelets (Bld) [#/Vol] 197 10*3/uL 150-450 [facility] RBC Auto (Bld) [#/Vol]Ordere d By: Renard Burgos on 04-15-2024 RBC (Bld) [#/Vol] 4.64 10*6/uL 4.6-6.2 [facility] Serum globulin measurementOr dered By: Renard Burgos on 04-15-2024 Globulin (S) [Mass/Vol] 3.0 g/dL 2.2-4.2 [facility] Serum or plasma alanine kay otransferase (ALT) measurementOrdered By: Renard Burgos on 04-15-2024 ALT [Catalytic activity/Vol] 21 U/L 16-61 [facility] Serum or plasma albumin gordy urement (mass/volume)Ordered By: Renard Burgos on 04-15-2024 Albumin [Mass/Vol] 2.9 g/dL Low 3.2-5.0 [facility] Serum or plasma alkaline trace sphatase measurementOrdered By: Renard Burgos on 04-15-2024 ALP [Catalytic activity/Vol] 126 U/L High 45-117 [facility] Total proteinOrdered By: Lyubov Burgos on 04-15-2024 Protein [Mass/Vol] 5.9 g/dL Low 6.4-8.2 [facility] White blood cell (WBC) count Ordered By: Renard Burgos on 04-15-2024 WBC (Bld) [#/Vol] 11.4 10*3/uL High 4.4-11.0 [facility] Absolute neutrophil countOrd ered By: Renard Burgos on 04-08-2024 Neutrophils (Bld) [#/Vol] 5.7 10*3/uL 2.0-7.7 [facility] Basophil percentageOrdered B y: Renard Burgos on 04-08-2024 Basophils/100 WBC (Bld) 0.6 % 0-1 [facility] CBC W/Diff, Automatedon 12-0 Absolute Lymph 2.27 X10 3/uL Normal 0.83-4.51 [facility] Comment on above: Order Comment: 109.1 Performed By: #### L 100.0100 ####[facility] [address] [place], [address] Absolute Neut 5.7 X10 3/uL Normal 2.0-7.7 [facility] Comment on above: Order Comment: 109.1 Performed By: #### L 100.0100 ####[facility] [address] [place], [address] Basophils/100 WBC (Bld) 0.6 % Normal 0-1 [facility] Comment on above: Order Comment: 109.1 Performed By: #### L 100.0100 ####[facility] [address] [place], [address] Eosinophils/100 WBC (Bld) 0.5 % Normal 0-5 [facility] Comment on above: Order Comment: 109.1 Performed By: #### L 100.0100 ####[facility] [address] [place], [address] Erythrocyte distribution width (RBC) [Ratio] 12.6 % Normal 11.6-14.6 [facility] Comment on above: Order Comment: 109.1 Performed By: #### L 100.0100 ####[facility] [address] [place], [address] Hematocrit (Bld) [Volume fraction] 41.2 % Normal 40-54 [facility] Comment on above: Order Comment: 109.1 Performed By: #### L 100.0100 ####[facility] [address] [place], [address] Hemoglobin (Bld) [Mass/Vol] 13.3 g/dL Normal 13.0-16.5 [facility] Comment on above: Order Comment: 109.1 Performed By: #### L 100.0100 ####[facility] [address] [place], [address] IG% 0.200 Normal 0.0-0.9 [facility] Comment on above: Order Comment: 109.1 Result Comment: IG% - Immature Granulocytes (promyelocytes, myelocytes andmetamyelocytes) > 1% indicates that a LEFT SHIFT is Present. Performed By: #### L 100.0100 ####[facility] [address] [place], [address] Lymphocytes/100 WBC (Bld) 26.0 % Normal 19-41 [facility] Comment on above: Order Comment: 109.1 Performed By: #### L 100.0100 ####[facility] [address] [place], [address] MCH (RBC) [Entitic mass] 29.6 pg Normal 27.0-32.0 [facility] Comment on above: Order Comment: 109.1 Performed By: #### L 100.0100 ####[facility] [address] [place], [address] MCHC (RBC) [Mass/Vol] 32.3 g/dL Normal 32-36 [facility] Comment on above: Order Comment: 109.1 Performed By: #### L 100.0100 ####[facility] [address] [place], [address] MCV (RBC) [Entitic vol] 91.8 fL Normal 80-94 [facility] Comment on above: Order Comment: 109.1 Performed By: #### L 100.0100 ####[facility] [address] [place], [address] Monocytes/100 WBC (Bld) 7.8 % Normal 0-10 [facility] Comment on above: Order Comment: 109.1 Performed By: #### L 100.0100 ####[facility] [address] [place], [address] Neutrophils/100 WBC (Bld) 64.9 % Normal 47-70 [facility] Comment on above: Order Comment: 109.1 Performed By: #### L 100.0100 ####[facility] [address] [place], [address] Nucleated RBC (Bld) [#/Vol] 0 10*3/uL Normal 0-5 [facility] Comment on above: Order Comment: 109.1 Performed By: #### L 100.0100 ####[facility] [address] [place], [address] Platelet mean volume (Bld) [Entitic vol] 10.8 fL Normal 6.2-12.0 [facility] Comment on above: Order Comment: 109.1 Performed By: #### L 100.0100 ####[facility] [address] [place], [address] Platelets (Bld) [#/Vol] 208 10*3/uL Normal 150-450 [facility] Comment on above: Order Comment: 109.1 Performed By: #### L 100.0100 ####[facility] [address] [place], [address] RBC (Bld) [#/Vol] 4.49 10*6/uL Low 4.6-6.2 [facility] Comment on above: Order Comment: 109.1 Performed By: #### L 100.0100 ####[facility] [address] [place], [address] RDW SD 42.4 fl Normal 35.1-43.9 [facility] Comment on above: Order Comment: 109.1 Performed By: #### L 100.0100 ####[facility] [address] [place], [address] WBC (Bld) [#/Vol] 8.7 10*3/uL Normal 4.4-11.0 [facility] Comment on above: Order Comment: 109.1 Performed By: #### L 100.0100 ####[facility] [address] [place], [place], [address] Eosinophil percentageOrdered By: Renard Burgos on 04-08-2024 Eosinophils/100 WBC (Bld) 0.5 % 0-5 [facility] Erythrocyte distribution wid th ratioOrdered By: Renard Burgos on 04-08-2024 Erythrocyte distribution width (RBC) [Ratio] 12.6 % 11.6-14.6 [facility] Erythrocyte distribution wid th standard deviationOrdered By: Renard Burgos on 04-08-2024 Erythrocyte distribution width (RBC) [Entitic vol] 42.4 fL 35.1-43.9 [facility] Hematocrit Auto (Bld) [Volum e fraction]Ordered By: Renard Burgos on 04-08-2024 Hematocrit (Bld) [Volume fraction] 41.2 % 40-54 [facility] Hemoglobin measurementOrdere d By: Renard Burgos on 04-08-2024 Hemoglobin (Bld) [Mass/Vol] 13.3 g/dL 13.0-16.5 [facility] Immature granulocytes/100 WB C Auto (Bld)Ordered By: Renard Burgos on 04-08-2024 Immature granulocytes/100 WBC (Bld) 0.200 % 0.0-0.9 [facility] Comment on above: IG% - Immature Granu locytes (promyelocytes, myelocytes and metamyelocytes) > 1% indicates that a LEFT SHIFT is Present. Lymphocytes Auto (Unsp spec) [#/Vol]Ordered By: Renard Burgos on 04-08-2024 Lymphocytes (Bld) [#/Vol] 2.27 10*3/uL 0.83-4.51 [facility] Lymphocytes/100 WBC Auto (Un sp spec)Ordered By: Renard Burgos on 04-08-2024 Lymphocytes/100 WBC (Bld) 26.0 % 19-41 [facility] MCV (mean corpuscular volume ) determinationOrdered By: Renard Burgos on 04-08-2024 MCV (RBC) [Entitic vol] 91.8 fL 80-94 [facility] Mean corpuscular hemoglobin (MCH) determinationOrdered By: Renard Burgos on 04-08-2024 MCH (RBC) [Entitic mass] 29.6 pg 27.0-32.0 [facility] Mean corpuscular hemoglobin concentration (MCHC) determinationOrdered By: Renard Burgos on 04-08-2024 MCHC (RBC) [Mass/Vol] 32.3 g/dL 32-36 [facility] Mean platelet volume determi nationOrdered By: Renard Burgos on 04-08-2024 Platelet mean volume (Bld) [Entitic vol] 10.8 fL 6.2-12.0 [facility] Monocyte percentageOrdered B y: Renard Burgos on 04-08-2024 Monocytes/100 WBC (Bld) 7.8 % 0-10 [facility] Neutrophil percentageOrdered By: Renard Burgos on 04-08-2024 Neutrophils/100 WBC (Bld) 64.9 % 47-70 [facility] Nucleated red blood cell per centageOrdered By: Renard Burgos on 04-08-2024 Nucleated RBC/100 WBC (Bld) [Ratio] 0 % 0-5 [facility] Platelet countOrdered By: Garrick Bhatt on 04-08-2024 Platelets (Bld) [#/Vol] 208 10*3/uL 150-450 [facility] RBC Auto (Bld) [#/Vol]Ordere d By: Renard Burgos on 04-08-2024 RBC (Bld) [#/Vol] 4.49 10*6/uL Low 4.6-6.2 [facility] White blood cell (WBC) count Ordered By: Renard Burgos on 04-08-2024 WBC (Bld) [#/Vol] 8.7 10*3/uL 4.4-11.0 [facility] Absolute neutrophil countOrd ered By: Renard Burgos on 04-01-2024 Neutrophils (Bld) [#/Vol] 7.1 10*3/uL 2.0-7.7 [facility] Basophil percentageOrdered B y: Renard Burgos on 04-01-2024 Basophils/100 WBC (Bld) 0.4 % 0-1 [facility] CBC W/Diff, Automatedon Absolute Lymph 1.97 X10 3/uL Normal 0.83-4.51 [facility] Comment on above: Order Comment: 109-1 Performed By: #### L 100.0100 ####[facility] [address] [place], [address] Absolute Neut 7.1 X10 3/uL Normal 2.0-7.7 [facility] Comment on above: Order Comment: 109-1 Performed By: #### L 100.0100 ####[facility] [address] [place], [address] Basophils/100 WBC (Bld) 0.4 % Normal 0-1 [facility] Comment on above: Order Comment: 109-1 Performed By: #### L 100.0100 ####[facility] [address] [place], [address] Eosinophils/100 WBC (Bld) 0.4 % Normal 0-5 [facility] Comment on above: Order Comment: 109-1 Performed By: #### L 100.0100 ####[facility] [address] [place], [address] Erythrocyte distribution width (RBC) [Ratio] 12.6 % Normal 11.6-14.6 [facility] Comment on above: Order Comment: 109-1 Performed By: #### L 100.0100 ####[facility] [address] [place], [address] Hematocrit (Bld) [Volume fraction] 41.7 % Normal 40-54 [facility] Comment on above: Order Comment: 109-1 Performed By: #### L 100.0100 ####[facility] [address] [place], [address] Hemoglobin (Bld) [Mass/Vol] 13.6 g/dL Normal 13.0-16.5 [facility] Comment on above: Order Comment: 109-1 Performed By: #### L 100.0100 ####[facility] [address] [place], [address] IG% 0.300 Normal 0.0-0.9 [facility] Comment on above: Order Comment: 109-1 Result Comment: IG% - Immature Granulocytes (promyelocytes, myelocytes andmetamyelocytes) > 1% indicates that a LEFT SHIFT is Present. Performed By: #### L 100.0100 ####[facility] [address] [place], [address] Lymphocytes/100 WBC (Bld) 20.0 % Normal 19-41 [facility] Comment on above: Order Comment: 109-1 Performed By: #### L 100.0100 ####[facility] [address] [place], [address] MCH (RBC) [Entitic mass] 29.7 pg Normal 27.0-32.0 [facility] Comment on above: Order Comment: 109-1 Performed By: #### L 100.0100 ####[facility] [address] [place], [address] MCHC (RBC) [Mass/Vol] 32.6 g/dL Normal 32-36 [facility] Comment on above: Order Comment: 109-1 Performed By: #### L 100.0100 ####[facility] [address] [place], [address] MCV (RBC) [Entitic vol] 91.0 fL Normal 80-94 [facility] Comment on above: Order Comment: 109-1 Performed By: #### L 100.0100 ####[facility] [address] [place], [address] Monocytes/100 WBC (Bld) 7.1 % Normal 0-10 [facility] Comment on above: Order Comment: 109-1 Performed By: #### L 100.0100 ####[facility] [address] [place], [address] Neutrophils/100 WBC (Bld) 71.8 % High 47-70 [facility] Comment on above: Order Comment: 109-1 Performed By: #### L 100.0100 ####[facility] [address] [place], [address] Nucleated RBC (Bld) [#/Vol] 0 10*3/uL Normal 0-5 [facility] Comment on above: Order Comment: 109-1 Performed By: #### L 100.0100 ####[facility] [address] [place], [address] Platelet mean volume (Bld) [Entitic vol] 11.3 fL Normal 6.2-12.0 [facility] Comment on above: Order Comment: 109-1 Performed By: #### L 100.0100 ####[facility] [address] [place], [address] Platelets (Bld) [#/Vol] 195 10*3/uL Normal 150-450 [facility] Comment on above: Order Comment: 109-1 Performed By: #### L 100.0100 ####[facility] [address] [place], [address] RBC (Bld) [#/Vol] 4.58 10*6/uL Low 4.6-6.2 [facility] Comment on above: Order Comment: 109-1 Performed By: #### L 100.0100 ####[facility] [address] [place], [address] RDW SD 41.2 fl Normal 35.1-43.9 [facility] Comment on above: Order Comment: 109-1 Performed By: #### L 100.0100 ####[facility] [address] [place], [place], [address] WBC (Bld) [#/Vol] 9.8 10*3/uL Normal 4.4-11.0 [facility] Comment on above: Order Comment: 109-1 Performed By: #### L 100.0100 ####[facility] [address] [place], [address] Eosinophil percentageOrdered By: Renard Burgos on 04-01-2024 Eosinophils/100 WBC (Bld) 0.4 % 0-5 [facility] Erythrocyte distribution wid th ratioOrdered By: Renard Burgos on 04-01-2024 Erythrocyte distribution width (RBC) [Ratio] 12.6 % 11.6-14.6 [facility] Erythrocyte distribution wid th standard deviationOrdered By: Renard Burgos on 04-01-2024 Erythrocyte distribution width (RBC) [Entitic vol] 41.2 fL 35.1-43.9 [facility] Hematocrit Auto (Bld) [Volum e fraction]Ordered By: Renard Burgos on 04-01-2024 Hematocrit (Bld) [Volume fraction] 41.7 % 40-54 [facility] Hemoglobin measurementOrdere d By: Renard Burgos on 04-01-2024 Hemoglobin (Bld) [Mass/Vol] 13.6 g/dL 13.0-16.5 [facility] Immature granulocytes/100 WB C Auto (Bld)Ordered By: Renard Burgos on 04-01-2024 Immature granulocytes/100 WBC (Bld) 0.300 % 0.0-0.9 [facility] Comment on above: IG% - Immature Granu locytes (promyelocytes, myelocytes and metamyelocytes) > 1% indicates that a LEFT SHIFT is Present. Lymphocytes Auto (Unsp spec) [#/Vol]Ordered By: Renard Burgos on 04-01-2024 Lymphocytes (Bld) [#/Vol] 1.97 10*3/uL 0.83-4.51 [facility] Lymphocytes/100 WBC Auto (Un sp spec)Ordered By: Renard Burgos on 04-01-2024 Lymphocytes/100 WBC (Bld) 20.0 % 19-41 [facility] MCV (mean corpuscular volume ) determinationOrdered By: Renard Burgos on 04-01-2024 MCV (RBC) [Entitic vol] 91.0 fL 80-94 [facility] Mean corpuscular hemoglobin (MCH) determinationOrdered By: Renard Burgos on 04-01-2024 MCH (RBC) [Entitic mass] 29.7 pg 27.0-32.0 [facility] Mean corpuscular hemoglobin concentration (MCHC) determinationOrdered By: Renard Burgos on 04-01-2024 MCHC (RBC) [Mass/Vol] 32.6 g/dL 32-36 [facility] Mean platelet volume determi nationOrdered By: Renard Burgos on 04-01-2024 Platelet mean volume (Bld) [Entitic vol] 11.3 fL 6.2-12.0 [facility] Monocyte percentageOrdered B y: Renard Burgos on 04-01-2024 Monocytes/100 WBC (Bld) 7.1 % 0-10 [facility] Neutrophil percentageOrdered By: Renard Burgos on 04-01-2024 Neutrophils/100 WBC (Bld) 71.8 % High 47-70 [facility] Nucleated red blood cell per centageOrdered By: Renard Burgos on 04-01-2024 Nucleated RBC/100 WBC (Bld) [Ratio] 0 % 0-5 [facility] Platelet countOrdered By: Garrick Bhatt on 04-01-2024 Platelets (Bld) [#/Vol] 195 10*3/uL 150-450 [facility] RBC Auto (Bld) [#/Vol]Ordere d By: Renard Burgos on 04-01-2024 RBC (Bld) [#/Vol] 4.58 10*6/uL Low 4.6-6.2 [facility] White blood cell (WBC) count Ordered By: Renard Burgos on 04-01-2024 WBC (Bld) [#/Vol] 9.8 10*3/uL 4.4-11.0 [facility] Absolute neutrophil countOrd ered By: Renard Burgos on 03-25-2024 Neutrophils (Bld) [#/Vol] 5.4 10*3/uL 2.0-7.7 [facility] Basophil percentageOrdered B y: Renard Burgos on 03-25-2024 Basophils/100 WBC (Bld) 0.5 % 0-1 [facility] CBC W/Diff, Automatedon 03-02 Absolute Lymph 2.14 X10 3/uL Normal 0.83-4.51 [facility] Comment on above: Order Comment: 109-1 Performed By: #### L 100.0100 ####[facility] [address] [place], [address] Absolute Neut 5.4 X10 3/uL Normal 2.0-7.7 [facility] Comment on above: Order Comment: 109-1 Performed By: #### L 100.0100 ####[facility] [address] [place], [address] Basophils/100 WBC (Bld) 0.5 % Normal 0-1 [facility] Comment on above: Order Comment: 109-1 Performed By: #### L 100.0100 ####[facility] [address] [place], [address] Eosinophils/100 WBC (Bld) 0.7 % Normal 0-5 [facility] Comment on above: Order Comment: 109-1 Performed By: #### L 100.0100 ####[facility] [address] [place], [address] Erythrocyte distribution width (RBC) [Ratio] 12.7 % Normal 11.6-14.6 [facility] Comment on above: Order Comment: 109-1 Performed By: #### L 100.0100 ####[facility] [address] [place], [address] Hematocrit (Bld) [Volume fraction] 42.3 % Normal 40-54 [facility] Comment on above: Order Comment: 109-1 Performed By: #### L 100.0100 ####[facility] [address] [place], [address] Hemoglobin (Bld) [Mass/Vol] 13.7 g/dL Normal 13.0-16.5 [facility] Comment on above: Order Comment: 109-1 Performed By: #### L 100.0100 ####[facility] [address] [place], [address] IG% 0.500 Normal 0.0-0.9 [facility] Comment on above: Order Comment: 109-1 Result Comment: IG% - Immature Granulocytes (promyelocytes, myelocytes andmetamyelocytes) > 1% indicates that a LEFT SHIFT is Present. Performed By: #### L 100.0100 ####[facility] [address] [place], [address] Lymphocytes/100 WBC (Bld) 25.8 % Normal 19-41 [facility] Comment on above: Order Comment: 109-1 Performed By: #### L 100.0100 ####[facility] [address] [place], [address] MCH (RBC) [Entitic mass] 29.2 pg Normal 27.0-32.0 [facility] Comment on above: Order Comment: 109-1 Performed By: #### L 100.0100 ####[facility] [address] [place], [address] MCHC (RBC) [Mass/Vol] 32.4 g/dL Normal 32-36 [facility] Comment on above: Order Comment: 109-1 Performed By: #### L 100.0100 ####[facility] [address] [place], [address] MCV (RBC) [Entitic vol] 90.2 fL Normal 80-94 [facility] Comment on above: Order Comment: 109-1 Performed By: #### L 100.0100 ####[facility] [address] [place], [address] Monocytes/100 WBC (Bld) 8.0 % Normal 0-10 [facility] Comment on above: Order Comment: 109-1 Performed By: #### L 100.0100 ####[facility] [address] [place], [address] Neutrophils/100 WBC (Bld) 64.5 % Normal 47-70 [facility] Comment on above: Order Comment: 109-1 Performed By: #### L 100.0100 ####[facility] [address] [place], [address] Nucleated RBC (Bld) [#/Vol] 0 10*3/uL Normal 0-5 [facility] Comment on above: Order Comment: 109-1 Performed By: #### L 100.0100 ####[facility] [address] [place], [address] Platelet mean volume (Bld) [Entitic vol] 11.2 fL Normal 6.2-12.0 [facility] Comment on above: Order Comment: 109-1 Performed By: #### L 100.0100 ####[facility] [address] [place], [address] Platelets (Bld) [#/Vol] 204 10*3/uL Normal 150-450 [facility] Comment on above: Order Comment: 109-1 Performed By: #### L 100.0100 ####[facility] [address] [place], [address] RBC (Bld) [#/Vol] 4.69 10*6/uL Normal 4.6-6.2 [facility] Comment on above: Order Comment: 109-1 Performed By: #### L 100.0100 ####[facility] [address] [place], [address] RDW SD 41.8 fl Normal 35.1-43.9 [facility] Comment on above: Order Comment: 109-1 Performed By: #### L 100.0100 ####[facility] [address] [place], [place], [id number]) WBC (Bld) [#/Vol] 8.3 10*3/uL Normal 4.4-11.0 [facility] Comment on above: Order Comment: 109-1 Performed By: #### L 100.0100 ####[facility] [address] [place], [address] Eosinophil percentageOrdered By: Renard Burgos on 03-25-2024 Eosinophils/100 WBC (Bld) 0.7 % 0-5 [facility] Erythrocyte distribution wid th ratioOrdered By: Renard Burgos on 03-25-2024 Erythrocyte distribution width (RBC) [Ratio] 12.7 % 11.6-14.6 [facility] Erythrocyte distribution wid th standard deviationOrdered By: Renard Burgos on 03-25-2024 Erythrocyte distribution width (RBC) [Entitic vol] 41.8 fL 35.1-43.9 [facility] Hematocrit Auto (Bld) [Volum e fraction]Ordered By: Renard Burgos on 03-25-2024 Hematocrit (Bld) [Volume fraction] 42.3 % 40-54 [facility] Hemoglobin measurementOrdere d By: Renard Burgos on 03-25-2024 Hemoglobin (Bld) [Mass/Vol] 13.7 g/dL 13.0-16.5 [facility] Immature granulocytes/100 WB C Auto (Bld)Ordered By: Renard Burgos on 03-25-2024 Immature granulocytes/100 WBC (Bld) 0.500 % 0.0-0.9 [facility] Comment on above: IG% - Immature Granu locytes (promyelocytes, myelocytes and metamyelocytes) > 1% indicates that a LEFT SHIFT is Present. Lymphocytes Auto (Unsp spec) [#/Vol]Ordered By: Renard Burgos on 03-25-2024 Lymphocytes (Bld) [#/Vol] 2.14 10*3/uL 0.83-4.51 [facility] Lymphocytes/100 WBC Auto (Un sp spec)Ordered By: Renard Brugos on 03-25-2024 Lymphocytes/100 WBC (Bld) 25.8 % 19-41 [facility] MCV (mean corpuscular volume ) determinationOrdered By: Renard Burgos on 03-25-2024 MCV (RBC) [Entitic vol] 90.2 fL 80-94 [facility] Mean corpuscular hemoglobin (MCH) determinationOrdered By: Renard Burgos on 03-25-2024 MCH (RBC) [Entitic mass] 29.2 pg 27.0-32.0 [facility] Mean corpuscular hemoglobin concentration (MCHC) determinationOrdered By: Renard Burgos on 03-25-2024 MCHC (RBC) [Mass/Vol] 32.4 g/dL 32-36 [facility] Mean platelet volume determi nationOrdered By: Renard Burgos on 03-25-2024 Platelet mean volume (Bld) [Entitic vol] 11.2 fL 6.2-12.0 [facility] Monocyte percentageOrdered B y: Renard Burgos on 03-25-2024 Monocytes/100 WBC (Bld) 8.0 % 0-10 [facility] Neutrophil percentageOrdered By: Renard Burgos on 03-25-2024 Neutrophils/100 WBC (Bld) 64.5 % 47-70 [facility] Nucleated red blood cell per centageOrdered By: Renard Burgos on 03-25-2024 Nucleated RBC/100 WBC (Bld) [Ratio] 0 % 0-5 [facility] Platelet countOrdered By: Garrick Bhatt on 03-25-2024 Platelets (Bld) [#/Vol] 204 10*3/uL 150-450 [facility] RBC Auto (Bld) [#/Vol]Ordere d By: Renard Burgos on 03-25-2024 RBC (Bld) [#/Vol] 4.69 10*6/uL 4.6-6.2 [facility] White blood cell (WBC) count Ordered By: Renard Burgos on 03-25-2024 WBC (Bld) [#/Vol] 8.3 10*3/uL 4.4-11.0 [facility] Absolute neutrophil countOrd ered By: Renard Burgos on 03-18-2024 Neutrophils (Bld) [#/Vol] 5.2 10*3/uL 2.0-7.7 [facility] Basophil percentageOrdered B y: Renard Burgos on 03-18-2024 Basophils/100 WBC (Bld) 0.6 % 0-1 [facility] CBC W/Diff, Automatedon 03-01 Absolute Lymph 2.23 X10 3/uL Normal 0.83-4.51 [facility] Comment on above: Order Comment: 109.1 Performed By: #### L 100.0100 ####[facility] [address] [place], [address] Absolute Neut 5.2 X10 3/uL Normal 2.0-7.7 [facility] Comment on above: Order Comment: 109.1 Performed By: #### L 100.0100 ####[facility] [address] [place], [address] Basophils/100 WBC (Bld) 0.6 % Normal 0-1 [facility] Comment on above: Order Comment: 109.1 Performed By: #### L 100.0100 ####[facility] [address] [place], [address] Eosinophils/100 WBC (Bld) 0.7 % Normal 0-5 [facility] Comment on above: Order Comment: 109.1 Performed By: #### L 100.0100 ####[facility] [address] [place], [address] Erythrocyte distribution width (RBC) [Ratio] 12.8 % Normal 11.6-14.6 [facility] Comment on above: Order Comment: 109.1 Performed By: #### L 100.0100 ####[facility] [address] [place], [address] Hematocrit (Bld) [Volume fraction] 42.0 % Normal 40-54 [facility] Comment on above: Order Comment: 109.1 Performed By: #### L 100.0100 ####[facility] [address] [place], [address] Hemoglobin (Bld) [Mass/Vol] 13.6 g/dL Normal 13.0-16.5 [facility] Comment on above: Order Comment: 109.1 Performed By: #### L 100.0100 ####[facility] [address] [place], [address] IG% 0.500 Normal 0.0-0.9 [facility] Comment on above: Order Comment: 109.1 Result Comment: IG% - Immature Granulocytes (promyelocytes, myelocytes andmetamyelocytes) > 1% indicates that a LEFT SHIFT is Present. Performed By: #### L 100.0100 ####[facility] [address] [place], [address] Lymphocytes/100 WBC (Bld) 27.0 % Normal 19-41 [facility] Comment on above: Order Comment: 109.1 Performed By: #### L 100.0100 ####[facility] [address] [place], [address] MCH (RBC) [Entitic mass] 29.5 pg Normal 27.0-32.0 [facility] Comment on above: Order Comment: 109.1 Performed By: #### L 100.0100 ####[facility] [address] [place], [address] MCHC (RBC) [Mass/Vol] 32.4 g/dL Normal 32-36 [facility] Comment on above: Order Comment: 109.1 Performed By: #### L 100.0100 ####[facility] [address] [place], [address] MCV (RBC) [Entitic vol] 91.1 fL Normal 80-94 [facility] Comment on above: Order Comment: 109.1 Performed By: #### L 100.0100 ####[facility] [address] [place], [address] Monocytes/100 WBC (Bld) 8.5 % Normal 0-10 [facility] Comment on above: Order Comment: 109.1 Performed By: #### L 100.0100 ####[facility] [address] [place], [address] Neutrophils/100 WBC (Bld) 62.7 % Normal 47-70 [facility] Comment on above: Order Comment: 109.1 Performed By: #### L 100.0100 ####[facility] [address] [place], [address] Nucleated RBC (Bld) [#/Vol] 0 10*3/uL Normal 0-5 [facility] Comment on above: Order Comment: 109.1 Performed By: #### L 100.0100 ####[facility] [address] [place], [address] Platelet mean volume (Bld) [Entitic vol] 10.8 fL Normal 6.2-12.0 [facility] Comment on above: Order Comment: 109.1 Performed By: #### L 100.0100 ####[facility] [address] [place], [address] Platelets (Bld) [#/Vol] 211 10*3/uL Normal 150-450 [facility] Comment on above: Order Comment: 109.1 Performed By: #### L 100.0100 ####[facility] [address] [place], [address] RBC (Bld) [#/Vol] 4.61 10*6/uL Normal 4.6-6.2 [facility] Comment on above: Order Comment: 109.1 Performed By: #### L 100.0100 ####[facility] [address] [place], [address] RDW SD 42.3 fl Normal 35.1-43.9 [facility] Comment on above: Order Comment: 109.1 Performed By: #### L 100.0100 ####[facility] [address] [place], [place], [id number]) WBC (Bld) [#/Vol] 8.3 10*3/uL Normal 4.4-11.0 [facility] Comment on above: Order Comment: 109.1 Performed By: #### L 100.0100 ####[facility] [address] [place], [address] Eosinophil percentageOrdered By: Renard Burgos on 03-18-2024 Eosinophils/100 WBC (Bld) 0.7 % 0-5 [facility] Erythrocyte distribution wid th ratioOrdered By: Renard Burgos on 03-18-2024 Erythrocyte distribution width (RBC) [Ratio] 12.8 % 11.6-14.6 [facility] Erythrocyte distribution wid th standard deviationOrdered By: Renard Burgos on 03-18-2024 Erythrocyte distribution width (RBC) [Entitic vol] 42.3 fL 35.1-43.9 [facility] Hematocrit Auto (Bld) [Volum e fraction]Ordered By: Renard Burgos on 03-18-2024 Hematocrit (Bld) [Volume fraction] 42.0 % 40-54 [facility] Hemoglobin measurementOrdere d By: Renard Burgos on 03-18-2024 Hemoglobin (Bld) [Mass/Vol] 13.6 g/dL 13.0-16.5 [facility] Immature granulocytes/100 WB C Auto (Bld)Ordered By: Renard Burgos on 03-18-2024 Immature granulocytes/100 WBC (Bld) 0.500 % 0.0-0.9 [facility] Comment on above: IG% - Immature Granu locytes (promyelocytes, myelocytes and metamyelocytes) > 1% indicates that a LEFT SHIFT is Present. Lymphocytes Auto (Unsp spec) [#/Vol]Ordered By: Renard Burgos on 03-18-2024 Lymphocytes (Bld) [#/Vol] 2.23 10*3/uL 0.83-4.51 [facility] Lymphocytes/100 WBC Auto (Un sp spec)Ordered By: Renard Burgos on 03-18-2024 Lymphocytes/100 WBC (Bld) 27.0 % 19-41 [facility] MCV (mean corpuscular volume ) determinationOrdered By: Renard Burgos on 03-18-2024 MCV (RBC) [Entitic vol] 91.1 fL 80-94 [facility] Mean corpuscular hemoglobin (MCH) determinationOrdered By: Renard Burgos on 03-18-2024 MCH (RBC) [Entitic mass] 29.5 pg 27.0-32.0 [facility] Mean corpuscular hemoglobin concentration (MCHC) determinationOrdered By: Renard Burgos on 03-18-2024 MCHC (RBC) [Mass/Vol] 32.4 g/dL 32-36 [facility] Mean platelet volume determi nationOrdered By: Renard Burgos on 03-18-2024 Platelet mean volume (Bld) [Entitic vol] 10.8 fL 6.2-12.0 [facility] Monocyte percentageOrdered B y: Renard Burgos on 03-18-2024 Monocytes/100 WBC (Bld) 8.5 % 0-10 [facility] Neutrophil percentageOrdered By: Renard Burgos on 03-18-2024 Neutrophils/100 WBC (Bld) 62.7 % 47-70 [facility] Nucleated red blood cell per centageOrdered By: Renard Burgos on 03-18-2024 Nucleated RBC/100 WBC (Bld) [Ratio] 0 % 0-5 [facility] Platelet countOrdered By: Garrick Bhatt on 03-18-2024 Platelets (Bld) [#/Vol] 211 10*3/uL 150-450 [facility] RBC Auto (Bld) [#/Vol]Ordere d By: Renard Burgos on 03-18-2024 RBC (Bld) [#/Vol] 4.61 10*6/uL 4.6-6.2 [facility] White blood cell (WBC) count Ordered By: Renard Burgos on 03-18-2024 WBC (Bld) [#/Vol] 8.3 10*3/uL 4.4-11.0 [facility] Absolute neutrophil countOrd ered By: Renard Burgos on 03-11-2024 Neutrophils (Bld) [#/Vol] 6.2 10*3/uL 2.0-7.7 [facility] Automated blood erythrocyte countOrdered By: Renard Burgos on 03-11-2024 RBC (Bld) [#/Vol] 4.54 10*6/uL Low 4.6-6.2 [facility] Comment on above: Order Comment: 109.1 Performed By: #### L 100.0100 ####[facility] [address] [place], [place], [id number] Automated blood hematocrit ( percentage)Ordered By: Renard Burgos on 03-11-2024 Hematocrit (Bld) [Volume fraction] 41.5 % Normal 40-54 [facility] Comment on above: Order Comment: 109.1 Performed By: #### L 100.0100 ####[facility] [address] [place], [address] Automated lymphocyte count a s percentage of total leukocytesOrdered By: Renard Burgos on 03-11-2024 Lymphocytes/100 WBC (Bld) 25.6 % Normal 19-41 [facility] Comment on above: Order Comment: 109.1 Performed By: #### L 100.0100 ####[facility] [address] [place], [place], [id number] Basophil percentageOrdered B y: Renard Burgos on 03-11-2024 Basophils/100 WBC (Bld) 0.5 % Normal 0-1 [facility] Comment on above: Order Comment: 109.1 Performed By: #### L 100.0100 ####[facility] [address] [place], [place], [id number] CBC W/Diff, Automatedon 03-01 Absolute Lymph 2.50 X10 3/uL Normal 0.83-4.51 [facility] Comment on above: Order Comment: 109.1 Performed By: #### L 100.0100 ####[facility] [address] [place], [address] Absolute Neut 6.2 X10 3/uL Normal 2.0-7.7 [facility] Comment on above: Order Comment: 109.1 Performed By: #### L 100.0100 ####[facility] [address] [place], [address] IG% 0.500 Normal 0.0-0.9 [facility] Comment on above: Order Comment: 109.1 Result Comment: IG% - Immature Granulocytes (promyelocytes, myelocytes andmetamyelocytes) > 1% indicates that a LEFT SHIFT is Present. Performed By: #### L 100.0100 ####[facility] [address] [place], [address] Nucleated RBC (Bld) [#/Vol] 0 10*3/uL Normal 0-5 [facility] Comment on above: Order Comment: 109.1 Performed By: #### L 100.0100 ####[facility] [address] [place], [address] RDW SD 41.5 fl Normal 35.1-43.9 [facility] Comment on above: Order Comment: 109.1 Performed By: #### L 100.0100 ####[facility] [address] [place], [address] Eosinophil percentageOrdered By: Renard Burgos on 03-11-2024 Eosinophils/100 WBC (Bld) 0.6 % Normal 0-5 [facility] Comment on above: Order Comment: 109.1 Performed By: #### L 100.0100 ####[facility] [address] [place], [address] Erythrocyte distribution wid th ratioOrdered By: Renard Burgos on 03-11-2024 Erythrocyte distribution width (RBC) [Ratio] 12.7 % Normal 11.6-14.6 [facility] Comment on above: Order Comment: 109.1 Performed By: #### L 100.0100 ####[facility] [address] [place], [address] Erythrocyte distribution wid th standard deviationOrdered By: Renard Burgos on 03-11-2024 Erythrocyte distribution width (RBC) [Entitic vol] 41.5 fL 35.1-43.9 [facility] Hemoglobin measurementOrdere d By: Renard Burgos on 03-11-2024 Hemoglobin (Bld) [Mass/Vol] 13.8 g/dL Normal 13.0-16.5 [facility] Comment on above: Order Comment: 109.1 Performed By: #### L 100.0100 ####[facility] [address] [place], [address] Immature granulocytes/100 WB C Auto (Bld)Ordered By: Renard Burgos on 03-11-2024 Immature granulocytes/100 WBC (Bld) 0.500 % 0.0-0.9 [facility] Comment on above: IG% - Immature Granu locytes (promyelocytes, myelocytes and metamyelocytes) > 1% indicates that a LEFT SHIFT is Present. Lymphocytes Auto (Unsp spec) [#/Vol]Ordered By: Renard Burgos on 03-11-2024 Lymphocytes (Bld) [#/Vol] 2.50 10*3/uL 0.83-4.51 [facility] MCV (mean corpuscular volume ) determinationOrdered By: Renard Burgos on 03-11-2024 MCV (RBC) [Entitic vol] 91.4 fL Normal 80-94 [facility] Comment on above: Order Comment: 109.1 Performed By: #### L 100.0100 ####[facility] [address], [address] Mean corpuscular hemoglobin (MCH) determinationOrdered By: Renard Burgos on 03-11-2024 MCH (RBC) [Entitic mass] 30.4 pg Normal 27.0-32.0 [facility] Comment on above: Order Comment: 109.1 Performed By: #### L 100.0100 ####[facility] [address] [place], [address] Mean corpuscular hemoglobin concentration (MCHC) determinationOrdered By: Renard Burgos on 03-11-2024 MCHC (RBC) [Mass/Vol] 33.3 g/dL Normal 32-36 [facility] Comment on above: Order Comment: 109.1 Performed By: #### L 100.0100 ####[facility] [address] [place], [address] Mean platelet volume determi nationOrdered By: Renard Burgos on 03-11-2024 Platelet mean volume (Bld) [Entitic vol] 11.0 fL Normal 6.2-12.0 [facility] Comment on above: Order Comment: 109.1 Performed By: #### L 100.0100 ####[facility] [address] [place], [address] Monocyte percentageOrdered B y: Renard Burgos on 03-11-2024 Monocytes/100 WBC (Bld) 9.0 % Normal 0-10 [facility] Comment on above: Order Comment: 109.1 Performed By: #### L 100.0100 ####[facility] [address] [place], [address] Neutrophil percentageOrdered By: Renard Burgos on 03-11-2024 Neutrophils/100 WBC (Bld) 63.8 % Normal 47-70 [facility] Comment on above: Order Comment: 109.1 Performed By: #### L 100.0100 ####[facility] [address] [place], [address] Nucleated red blood cell per centageOrdered By: Renard Burgos on 03-11-2024 Nucleated RBC/100 WBC (Bld) [Ratio] 0 % 0-5 [facility] Platelet countOrdered By: Garrick Bhatt on 03-11-2024 Platelets (Bld) [#/Vol] 220 10*3/uL Normal 150-450 [facility] Comment on above: Order Comment: 109.1 Performed By: #### L 100.0100 ####[facility] [address] [place], [address] White blood cell (WBC) count Ordered By: Renard Burgos on 03-11-2024 WBC (Bld) [#/Vol] 9.8 10*3/uL Normal 4.4-11.0 [facility] Comment on above: Order Comment: 109.1 Performed By: #### L 100.0100 ####[facility] [address] [place], [address] CBC W/Diff, Automatedon 11-0 Absolute Lymph 1.99 X10 3/uL Normal 0.83-4.51 [facility] Comment on above: Order Comment: 109.1 Performed By: #### L 100.0100 ####[facility] [address] [place], [address] Absolute Neut 5.3 X10 3/uL Normal 2.0-7.7 [facility] Comment on above: Order Comment: 109.1 Performed By: #### L 100.0100 ####[facility] [address] [place], [address] Basophils/100 WBC (Bld) 0.6 % Normal 0-1 [facility] Comment on above: Order Comment: 109.1 Performed By: #### L 100.0100 ####[facility] [address] [place], [address] Eosinophils/100 WBC (Bld) 0.7 % Normal 0-5 [facility] Comment on above: Order Comment: 109.1 Performed By: #### L 100.0100 ####[facility] [address] [place], [address] Erythrocyte distribution width (RBC) [Ratio] 12.7 % Normal 11.6-14.6 [facility] Comment on above: Order Comment: 109.1 Performed By: #### L 100.0100 ####[facility] [address] [place], [address] Hematocrit (Bld) [Volume fraction] 42.1 % Normal 40-54 [facility] Comment on above: Order Comment: 109.1 Performed By: #### L 100.0100 ####[facility] [address] [place], [address] Hemoglobin (Bld) [Mass/Vol] 14.0 g/dL Normal 13.0-16.5 [facility] Comment on above: Order Comment: 109.1 Performed By: #### L 100.0100 ####[facility] [address] [place], [address] IG% 0.400 Normal 0.0-0.9 [facility] Comment on above: Order Comment: 109.1 Result Comment: IG% - Immature Granulocytes (promyelocytes, myelocytes andmetamyelocytes) > 1% indicates that a LEFT SHIFT is Present. Performed By: #### L 100.0100 ####[facility] [address] [place], [address] Lymphocytes/100 WBC (Bld) 24.5 % Normal 19-41 [facility] Comment on above: Order Comment: 109.1 Performed By: #### L 100.0100 ####[facility] [address] [place], [address] MCH (RBC) [Entitic mass] 30.2 pg Normal 27.0-32.0 [facility] Comment on above: Order Comment: 109.1 Performed By: #### L 100.0100 ####[facility] [address] [place], [address] MCHC (RBC) [Mass/Vol] 33.3 g/dL Normal 32-36 [facility] Comment on above: Order Comment: 109.1 Performed By: #### L 100.0100 ####[facility] [address] [place], [address] MCV (RBC) [Entitic vol] 90.7 fL Normal 80-94 [facility] Comment on above: Order Comment: 109.1 Performed By: #### L 100.0100 ####[facility] [address] [place], [address] Monocytes/100 WBC (Bld) 8.2 % Normal 0-10 [facility] Comment on above: Order Comment: 109.1 Performed By: #### L 100.0100 ####[facility] [address] [place], [address] Neutrophils/100 WBC (Bld) 65.6 % Normal 47-70 [facility] Comment on above: Order Comment: 109.1 Performed By: #### L 100.0100 ####[facility] [address] [place], [address] Nucleated RBC (Bld) [#/Vol] 0 10*3/uL Normal 0-5 [facility] Comment on above: Order Comment: 109.1 Performed By: #### L 100.0100 ####[facility] [address] [place], [address] Platelet mean volume (Bld) [Entitic vol] 11.0 fL Normal 6.2-12.0 [facility] Comment on above: Order Comment: 109.1 Performed By: #### L 100.0100 ####[facility] [address] [place], [address] Platelets (Bld) [#/Vol] 216 10*3/uL Normal 150-450 [facility] Comment on above: Order Comment: 109.1 Performed By: #### L 100.0100 ####[facility] [address] [place], [address] RBC (Bld) [#/Vol] 4.64 10*6/uL Normal 4.6-6.2 [facility] Comment on above: Order Comment: 109.1 Performed By: #### L 100.0100 ####[facility] [address] [place], [address] RDW SD 41.9 fl Normal 35.1-43.9 [facility] Comment on above: Order Comment: 109.1 Performed By: #### L 100.0100 ####[facility] [address] [place], [address] WBC (Bld) [#/Vol] 8.1 10*3/uL Normal 4.4-11.0 [facility] Comment on above: Order Comment: 109.1 Performed By: #### L 100.0100 ####[facility] [address] [place], [address] CBC W/Diff, Automatedon 10-2 Absolute Lymph 2.15 X10 3/uL Normal 0.83-4.51 [facility] Comment on above: Order Comment: 109.1 Performed By: #### L 100.0100 ####[facility] [address] [place], [address] Absolute Neut 7.1 X10 3/uL Normal 2.0-7.7 [facility] Comment on above: Order Comment: 109.1 Performed By: #### L 100.0100 ####[facility] [address] [place], [address] Basophils/100 WBC (Bld) 0.4 % Normal 0-1 [facility] Comment on above: Order Comment: 109.1 Performed By: #### L 100.0100 ####[facility] [address] [place], [address] Eosinophils/100 WBC (Bld) 0.6 % Normal 0-5 [facility] Comment on above: Order Comment: 109.1 Performed By: #### L 100.0100 ####[facility] [address] [place], [address] Erythrocyte distribution width (RBC) [Ratio] 12.6 % Normal 11.6-14.6 [facility] Comment on above: Order Comment: 109.1 Performed By: #### L 100.0100 ####[facility] [address] [place], [address] Hematocrit (Bld) [Volume fraction] 40.2 % Normal 40-54 [facility] Comment on above: Order Comment: 109.1 Performed By: #### L 100.0100 ####[facility] [address] [place], [address] Hemoglobin (Bld) [Mass/Vol] 13.6 g/dL Normal 13.0-16.5 [facility] Comment on above: Order Comment: 109.1 Performed By: #### L 100.0100 ####[facility] [address] [place], [address] IG% 0.500 Normal 0.0-0.9 [facility] Comment on above: Order Comment: 109.1 Result Comment: IG% - Immature Granulocytes (promyelocytes, myelocytes andmetamyelocytes) > 1% indicates that a LEFT SHIFT is Present. Performed By: #### L 100.0100 ####[facility] [address] [place], [address] Lymphocytes/100 WBC (Bld) 20.9 % Normal 19-41 [facility] Comment on above: Order Comment: 109.1 Performed By: #### L 100.0100 ####[facility] [address] [place], [address] MCH (RBC) [Entitic mass] 30.6 pg Normal 27.0-32.0 [facility] Comment on above: Order Comment: 109.1 Performed By: #### L 100.0100 ####[facility] [address] [place], [address] MCHC (RBC) [Mass/Vol] 33.8 g/dL Normal 32-36 [facility] Comment on above: Order Comment: 109.1 Performed By: #### L 100.0100 ####[facility] [address] [place], [address] MCV (RBC) [Entitic vol] 90.5 fL Normal 80-94 [facility] Comment on above: Order Comment: 109.1 Performed By: #### L 100.0100 ####[facility] [address] [place], [address] Monocytes/100 WBC (Bld) 8.5 % Normal 0-10 [facility] Comment on above: Order Comment: 109.1 Performed By: #### L 100.0100 ####[facility] [address] [place], [address] Neutrophils/100 WBC (Bld) 69.1 % Normal 47-70 [facility] Comment on above: Order Comment: 109.1 Performed By: #### L 100.0100 ####[facility] [address] [place], [address] Nucleated RBC (Bld) [#/Vol] 0 10*3/uL Normal 0-5 [facility] Comment on above: Order Comment: 109.1 Performed By: #### L 100.0100 ####[facility] [address] [place], [address] Platelet mean volume (Bld) [Entitic vol] 11.2 fL Normal 6.2-12.0 [facility] Comment on above: Order Comment: 109.1 Performed By: #### L 100.0100 ####[facility] [address] [place], [address] Platelets (Bld) [#/Vol] 226 10*3/uL Normal 150-450 [facility] Comment on above: Order Comment: 109.1 Performed By: #### L 100.0100 ####[facility] [address] [place], [address] RBC (Bld) [#/Vol] 4.44 10*6/uL Low 4.6-6.2 [facility] Comment on above: Order Comment: 109.1 Performed By: #### L 100.0100 ####[facility] [address] [place], [address] RDW SD 41.5 fl Normal 35.1-43.9 [facility] Comment on above: Order Comment: 109.1 Performed By: #### L 100.0100 ####[facility] [address] [place], [address] WBC (Bld) [#/Vol] 10.3 10*3/uL Normal 4.4-11.0 [facility] Comment on above: Order Comment: 109.1 Performed By: #### L 100.0100 ####[facility] [address] [place], [address] CBC-Complete Blood Cnt No Di ffon 02-23-2024 Erythrocyte distribution width (RBC) [Ratio] 12.9 % Normal 11.6-14.6 [facility] Comment on above: Order Comment: 109-1 Performed By: #### L 100.0500, L500.4100, L500.4050 ####[facility] [address] [place], [address] Hematocrit (Bld) [Volume fraction] 41.6 % Normal 40-54 [facility] Comment on above: Order Comment: 109-1 Performed By: #### L 100.0500, L500.4100, L500.4050 ####[facility] [address] [place], [address] Hemoglobin (Bld) [Mass/Vol] 14.0 g/dL Normal 13.0-16.5 [facility] Comment on above: Order Comment: 109-1 Performed By: #### L 100.0500, L500.4100, L500.4050 ####[facility] [address] [place], [address] MCH (RBC) [Entitic mass] 30.6 pg Normal 27.0-32.0 [facility] Comment on above: Order Comment: 109-1 Performed By: #### L 100.0500, L500.4100, L500.4050 ####[facility] [address] [place], [address] MCHC (RBC) [Mass/Vol] 33.7 g/dL Normal 32-36 [facility] Comment on above: Order Comment: 109-1 Performed By: #### L 100.0500, L500.4100, L500.4050 ####[facility] [address] [place], [address] MCV (RBC) [Entitic vol] 91.0 fL Normal 80-94 [facility] Comment on above: Order Comment: 109-1 Performed By: #### L 100.0500, L500.4100, L500.4050 ####[facility] [address] [place], [address] Platelet mean volume (Bld) [Entitic vol] 11.5 fL Normal 6.2-12.0 [facility] Comment on above: Order Comment: 109-1 Performed By: #### L 100.0500, L500.4100, L500.4050 ####[facility] [address] [place], [address] Platelets (Bld) [#/Vol] 209 10*3/uL Normal 150-450 [facility] Comment on above: Order Comment: 109-1 Performed By: #### L 100.0500, L500.4100, L500.4050 ####[facility] [address] [place], [address] RBC (Bld) [#/Vol] 4.57 10*6/uL Low 4.6-6.2 [facility] Comment on above: Order Comment: 109-1 Performed By: #### L 100.0500, L500.4100, L500.4050 ####[facility] [address] [place], [address] RDW SD 42.4 fl Normal 35.1-43.9 [facility] Comment on above: Order Comment: 109-1 Performed By: #### L 100.0500, L500.4100, L500.4050 ####[facility] [address] [place], [address] WBC (Bld) [#/Vol] 8.4 10*3/uL Normal 4.4-11.0 [facility] Comment on above: Order Comment: 109-1 Performed By: #### L 100.0500, L500.4100, L500.4050 ####[facility] [address] [place], [address] Comprehensive Metabolic Prof ilon 02-23-2024 Albumin [Mass/Vol] 3.1 g/dL Low 3.2-5.0 [facility] Comment on above: Order Comment: 109-1 Performed By: #### L 100.0500, L500.4100, L500.4050 ####[facility] [address] [place], [address] Albumin/Globulin [Mass ratio] 1.1 {ratio} Normal 0.9-2.4 [facility] Comment on above: Order Comment: 109-1 Performed By: #### L 100.0500, L500.4100, L500.4050 ####[facility] [address] [place], [address] ALK P 123 U/L High 45-117 [facility] Comment on above: Order Comment: 109-1 Performed By: #### L 100.0500, L500.4100, L500.4050 ####[facility] [address] [place], [address] ALT [Catalytic activity/Vol] 16 U/L Normal 16-61 [facility] Comment on above: Order Comment: 109-1 Performed By: #### L 100.0500, L500.4100, L500.4050 ####[facility] [address] [place], [address] AST [Catalytic activity/Vol] 10 U/L Low 15-37 [facility] Comment on above: Order Comment: 109-1 Performed By: #### L 100.0500, L500.4100, L500.4050 ####[facility] [address] [place], [address] Bilirubin [Mass/Vol] 0.50 mg/dL Normal 0.20-1.00 [facility] Comment on above: Order Comment: 109-1 Result Comment: For patients on eltrombopag therapy, use of Dimension [place] TBIL is not recommended. Performed By: #### L 100.0500, L500.4100, L500.4050 ####[facility] [address] [place], [address] BUN/CRE 24.9 RATIO High 10-20 [facility] Comment on above: Order Comment: 109-1 Performed By: #### L 100.0500, L500.4100, L500.4050 ####[facility] [address] [place], [address] CA,Total 8.5 mg/dL Normal 8.5-10.1 [facility] Comment on above: Order Comment: 109-1 Performed By: #### L 100.0500, L500.4100, L500.4050 ####[facility] [address] [place], [address] Chloride [Moles/Vol] 109 mmol/L High 98-107 [facility] Comment on above: Order Comment: 109-1 Performed By: #### L 100.0500, L500.4100, L500.4050 ####[facility] [address] [place], [address] CO2 [Moles/Vol] 27.0 mmol/L Normal 21.0-32.0 [facility] Comment on above: Order Comment: 109-1 Performed By: #### L 100.0500, L500.4100, L500.4050 ####[facility] [address] [place], [address] Creatinine [Mass/Vol] 0.64 mg/dL Low 0.70-1.30 [facility] Comment on above: Order Comment: 109-1 Result Comment: The validity of the calculated GFR GFRAA in patients over70 years has not been determined. Clinical correlation isessential. Performed By: #### L 100.0500, L500.4100, L500.4050 ####[facility] [address] [place], [address] EST GFR - AA 160 mL/min Normal >60 [facility] Comment on above: Order Comment: 109-1 Result Comment: Afri can Vietnamese GFR Calc Performed By: #### L 100.0500, L500.4100, L500.4050 ####[facility] [address] [place], [address] GAP 6 Normal 5-15 [facility] Comment on above: Order Comment: 109-1 Performed By: #### L 100.0500, L500.4100, L500.4050 ####[facility] [address] [place], [address] GFR/1.73 sq M.predicted among non-blacks MDRD (S/P/Bld) [Vol rate/Area] 132 mL/min/{1.73_m2} Normal >60 [facility] Comment on above: Order Comment: 109- Result Comment: Non- GFR Calc Performed By: #### L 100.0500, L500.4100, L500.4050 ####[facility] [address] [place], [address] Globulin (S) [Mass/Vol] 2.9 g/dL Normal 2.2-4.2 [facility] Comment on above: Order Comment: 109- Performed By: #### L 100.0500, L500.4100, L500.4050 ####[facility] [address] [place], [address] Glucose [Mass/Vol] 111 mg/dL High 74-106 [facility] Comment on above: Order Comment: Result Comment: Fast ing Glucose result from 100 to 125 mg/dLsuggests IMPAIRED HOMEOSTASIS per A.D.A. criteria. Performed By: #### L 100.0500, L500.4100, L500.4050 ####[facility] [address] [place], [address] Potassium [Moles/Vol] 3.6 mmol/L Normal 3.5-5.1 [facility] Comment on above: Order Comment: - Performed By: #### L 100.0500, L500.4100, L500.4050 ####[facility] [address] [place], [address] Sodium [Moles/Vol] 141 mmol/L Normal 136-145 [facility] Comment on above: Order Comment: 109-1 Performed By: #### L 100.0500, L500.4100, L500.4050 ####[facility] [address] [place], [address] T PROT 6.0 g/dL Low 6.4-8.2 [facility] Comment on above: Order Comment: 109-1 Performed By: #### L 100.0500, L500.4100, L500.4050 ####[facility] [address] [place], [address] Urea nitrogen [Mass/Vol] 16 mg/dL Normal 7-18 [facility] Comment on above: Order Comment: 109-1 Performed By: #### L 100.0500, L500.4100, L500.4050 ####[facility] [address] [place], [address] Lipid Profileon 02-23-2024 Cholesterol [Mass/Vol] 123 mg/dL Normal 200 [facility] Comment on above: Order Comment: 109-1 Result Comment: <200 mg/dL Desirable 200-240 mg/dL Borderline >240 mg/dL High Risk Performed By: #### L 100.0500, L500.4100, L500.4050 ####[facility] [address] [place], [address] Cholesterol in HDL [Mass/Vol] 28 mg/dL Low [facility] Comment on above: Order Comment: 109-1 Result Comment: The drugs N-Acetylcysteine and Metamizole may falselydepress this assay. Reference Range HDL <40 mg/dL Low HDL Cholesterol HDL >or= 60 mg/dL High HDL Cholesterol Performed By: #### L 100.0500, L500.4100, L500.4050 ####[facility] [address] [place], [address] Cholesterol in LDL [Mass/Vol] 71 mg/dL Normal 0-130 [facility] Comment on above: Order Comment: 109-1 Performed By: #### L 100.0500, L500.4100, L500.4050 ####[facility] [address] [place], [address] Cholesterol in VLDL [Mass/Vol] 24 mg/dL Normal 5-40 [facility] Comment on above: Order Comment: 109-1 Performed By: #### L 100.0500, L500.4100, L500.4050 ####[facility] [address] [place], [address] Triglyceride [Mass/Vol] 119 mg/dL Normal [facility] Comment on above: Order Comment: 109-1 Result Comment: The drugs N-Acetylcysteine and Metamizole may falselydepress this assay.Serum Triglycerides Reference Interval Normal <150 mg/dL Borderline high 150 - 199 mg/dL High 200 - 499 mg/dL Very High > or = 500 mg/dL Performed By: #### L 100.0500, L500.4100, L500.4050 ####[facility] [address] [place], [address] CBC W/Diff, Automatedon 10-2 Absolute Lymph 1.92 X10 3/uL Normal 0.83-4.51 [facility] Comment on above: Order Comment: 109-1 Performed By: #### L 100.0100 ####[facility] [address] [place], [address] Absolute Neut 6.9 X10 3/uL Normal 2.0-7.7 [facility] Comment on above: Order Comment: 109-1 Performed By: #### L 100.0100 ####[facility] [address] [place], [address] Basophils/100 WBC (Bld) 0.4 % Normal 0-1 [facility] Comment on above: Order Comment: 109-1 Performed By: #### L 100.0100 ####[facility] [address] [place], [address] Eosinophils/100 WBC (Bld) 0.6 % Normal 0-5 [facility] Comment on above: Order Comment: 109-1 Performed By: #### L 100.0100 ####[facility] [address] [place], [address] Erythrocyte distribution width (RBC) [Ratio] 12.9 % Normal 11.6-14.6 [facility] Comment on above: Order Comment: 109-1 Performed By: #### L 100.0100 ####[facility] [address] [place], [address] Hematocrit (Bld) [Volume fraction] 40.4 % Normal 40-54 [facility] Comment on above: Order Comment: 109-1 Performed By: #### L 100.0100 ####[facility] [address] [place], [address] Hemoglobin (Bld) [Mass/Vol] 13.3 g/dL Normal 13.0-16.5 [facility] Comment on above: Order Comment: 109-1 Performed By: #### L 100.0100 ####[facility] [address] [place], [address] IG% 0.300 Normal 0.0-0.9 [facility] Comment on above: Order Comment: 109-1 Result Comment: IG% - Immature Granulocytes (promyelocytes, myelocytes andmetamyelocytes) > 1% indicates that a LEFT SHIFT is Present. Performed By: #### L 100.0100 ####[facility] [address] [place], [address] Lymphocytes/100 WBC (Bld) 20.1 % Normal 19-41 [facility] Comment on above: Order Comment: 109-1 Performed By: #### L 100.0100 ####[facility] [address] [place], [address] MCH (RBC) [Entitic mass] 30.2 pg Normal 27.0-32.0 [facility] Comment on above: Order Comment: 109-1 Performed By: #### L 100.0100 ####[facility] [address] [place], [address] MCHC (RBC) [Mass/Vol] 32.9 g/dL Normal 32-36 [facility] Comment on above: Order Comment: 109-1 Performed By: #### L 100.0100 ####[facility] [address] [place], [address] MCV (RBC) [Entitic vol] 91.6 fL Normal 80-94 [facility] Comment on above: Order Comment: 109-1 Performed By: #### L 100.0100 ####[facility] [address] [place], [address] Monocytes/100 WBC (Bld) 6.8 % Normal 0-10 [facility] Comment on above: Order Comment: 109-1 Performed By: #### L 100.0100 ####[facility] [address] [place], [address] Neutrophils/100 WBC (Bld) 71.8 % High 47-70 [facility] Comment on above: Order Comment: 109-1 Performed By: #### L 100.0100 ####[facility] [address] [place], [address] Nucleated RBC (Bld) [#/Vol] 0 10*3/uL Normal 0-5 [facility] Comment on above: Order Comment: 109-1 Performed By: #### L 100.0100 ####[facility] [address] [place], [address] Platelet mean volume (Bld) [Entitic vol] 10.9 fL Normal 6.2-12.0 [facility] Comment on above: Order Comment: 109-1 Performed By: #### L 100.0100 ####[facility] [address] [place], [address] Platelets (Bld) [#/Vol] 209 10*3/uL Normal 150-450 [facility] Comment on above: Order Comment: 109-1 Performed By: #### L 100.0100 ####[facility] [address] [place], [address] RBC (Bld) [#/Vol] 4.41 10*6/uL Low 4.6-6.2 [facility] Comment on above: Order Comment: 109-1 Performed By: #### L 100.0100 ####[facility] [address] [place], [address] RDW SD 42.8 fl Normal 35.1-43.9 [facility] Comment on above: Order Comment: 109-1 Performed By: #### L 100.0100 ####[facility] [address] [place], [address] WBC (Bld) [#/Vol] 9.6 10*3/uL Normal 4.4-11.0 [facility] Comment on above: Order Comment: 109-1 Performed By: #### L 100.0100 ####[facility] [address] [place], [address] CBC W/Diff, Automatedon 10-05 04-2023 Absolute Lymph 2.08 X10 3/uL Normal 0.83-4.51 [facility] Comment on above: Order Comment: 109.1 Performed By: #### L 100.0100 ####[facility] [address] [place], [address] Absolute Neut 6.9 X10 3/uL Normal 2.0-7.7 [facility] Comment on above: Order Comment: 109.1 Performed By: #### L 100.0100 ####[facility] [address] [place], [address] Basophils/100 WBC (Bld) 0.5 % Normal 0-1 [facility] Comment on above: Order Comment: 109.1 Performed By: #### L 100.0100 ####[facility] [address] [place], [address] Eosinophils/100 WBC (Bld) 0.3 % Normal 0-5 [facility] Comment on above: Order Comment: 109.1 Performed By: #### L 100.0100 ####[facility] [address] [place], [address] Erythrocyte distribution width (RBC) [Ratio] 12.8 % Normal 11.6-14.6 [facility] Comment on above: Order Comment: 109.1 Performed By: #### L 100.0100 ####[facility] [address] [place], [address] Hematocrit (Bld) [Volume fraction] 40.6 % Normal 40-54 [facility] Comment on above: Order Comment: 109.1 Performed By: #### L 100.0100 ####[facility] [address] [place], [address] Hemoglobin (Bld) [Mass/Vol] 13.1 g/dL Normal 13.0-16.5 [facility] Comment on above: Order Comment: 109.1 Performed By: #### L 100.0100 ####[facility] [address] [place], [address] IG% 0.300 Normal 0.0-0.9 [facility] Comment on above: Order Comment: 109.1 Result Comment: IG% - Immature Granulocytes (promyelocytes, myelocytes andmetamyelocytes) > 1% indicates that a LEFT SHIFT is Present. Performed By: #### L 100.0100 ####[facility] [address] [place], [address] Lymphocytes/100 WBC (Bld) 21.2 % Normal 19-41 [facility] Comment on above: Order Comment: 109.1 Performed By: #### L 100.0100 ####[facility] [address] [place], [address] MCH (RBC) [Entitic mass] 29.8 pg Normal 27.0-32.0 [facility] Comment on above: Order Comment: 109.1 Performed By: #### L 100.0100 ####[facility] [address] [place], [address] MCHC (RBC) [Mass/Vol] 32.3 g/dL Normal 32-36 [facility] Comment on above: Order Comment: 109.1 Performed By: #### L 100.0100 ####[facility] [address] [place], [address] MCV (RBC) [Entitic vol] 92.5 fL Normal 80-94 [facility] Comment on above: Order Comment: 109.1 Performed By: #### L 100.0100 ####[facility] [address] [place], [address] Monocytes/100 WBC (Bld) 7.6 % Normal 0-10 [facility] Comment on above: Order Comment: 109.1 Performed By: #### L 100.0100 ####[facility] [address] [place], [address] Neutrophils/100 WBC (Bld) 70.1 % High 47-70 [facility] Comment on above: Order Comment: 109.1 Performed By: #### L 100.0100 ####[facility] [address] [place], [address] Nucleated RBC (Bld) [#/Vol] 0 10*3/uL Normal 0-5 [facility] Comment on above: Order Comment: 109.1 Performed By: #### L 100.0100 ####[facility] [address] [place], [address] Platelet mean volume (Bld) [Entitic vol] 10.8 fL Normal 6.2-12.0 [facility] Comment on above: Order Comment: 109.1 Performed By: #### L 100.0100 ####[facility] [address] [place], [address] Platelets (Bld) [#/Vol] 221 10*3/uL Normal 150-450 [facility] Comment on above: Order Comment: 109.1 Performed By: #### L 100.0100 ####[facility] [address] [place], [address] RBC (Bld) [#/Vol] 4.39 10*6/uL Low 4.6-6.2 [facility] Comment on above: Order Comment: 109.1 Performed By: #### L 100.0100 ####[facility] [address] [place], [address] RDW SD 43.4 fl Normal 35.1-43.9 [facility] Comment on above: Order Comment: 109.1 Performed By: #### L 100.0100 ####[facility] [address] [place], [address] WBC (Bld) [#/Vol] 9.8 10*3/uL Normal 4.4-11.0 [facility] Comment on above: Order Comment: 109.1 Performed By: #### L 100.0100 ####[facility] [address] [place], [address] Progress Noteon 11-22-2023 Progress Note Speech-Language Pathology SPEECH LANGUAGE PATHOLOGY [facility] & 's Modified Barium Swallow Study Patient [...] despite effort. 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 Frequency: Per treating [employer] Barriers: large osteophytes, bridging with anterior projection [...] Prior MBSS?: No, unable to locate in [facility] Current Diet: Puree diet with ?liquid (no information from [place]) Textures tested: - thin liquid, (cup edge) - mildly thick liquid, (cup edge) - puree, (teaspoon) Patient position: lateral Past Medical History: Past Medical History: Diagnosis Date TREVER (acute kidney injury) ([facility]) ([facility]) Alcohol abuse 07/08/2018 Anxiety C1 spinal cord injury ([facility]) ([facility]) Depression Fall 06/2018 Schizophrenia ([facility]) Past Surgical History: Past Surgical History: Procedure Laterality Date CERVICAL FUSION 07/09/2014 C2-6 cervical fusion GASTROSTOMY TUBE PLACEMENT 07/13/2018 TRACHEOSTOMY 07/13/2018 Admission Diagnosis: Patient Active Problem List Diagnosis Date Noted Respiratory syncytial virus (RSV) 03/22/2021 Hypoxia 03/19/2021 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 Chronic latent schizophrenia ([facility]) 08/15/2018 Prolonged Q-T interval on ECG 08/15/2018 Abdominal wall abscess 08/15/2018 Central cord syndrome (CMS/HCC) ([facility]) 08/15/2018 Respiratory failure after trauma ([facility]) 08/15/2018 Pressure ulcer of sacral region, stage 2 ([facility]) 08/09/2018 Urinary retention 07/28/2018 Acute respiratory failure with hypoxia ([facility]) 07/26/2018 Mild bibasilar atelectasis 07/26/2018 Hospital-acquired pneumonia 07/26/2018 Bilateral pleural effusion 07/26/2018 Ileus (CMS/HCC) ([facility]) 07/23/2018 TREVER (acute kidney injury) ([facility]) 07/23/2018 Hypokalemia 07/21/2018 Vertebral artery occlusion, bilateral 07/11/2018 Vitamin D insufficiency 07/10/2018 Alcohol abuse 07/08/2018 Closed wedge compression fracture of first thoracic vertebra ([facility]) 07/08/2018 Traumatic nondisp spondylolisthesis of C3 vertebra with closed fx, initial encounter ([facility]) 07/08/2018 Closed fracture dislocation of cervical spine ([facility]) 07/08/2018 Pain: Pt denies any current pain. Reason for current admission: Pt with h/o of PEG and trach from 2019. Pt is currently decannulated. 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 Noted very large connective [...] posterior spill (more content not included)... Normal [facility] RF videography Hypopharynx a nd Esophagus Views for swallowing function W speech and W barium contrast Rosalino 11-22-2023 Abnormal findings as described above. Please refer to the speech pathologist 's report for additional details and recommendations. Report Dictated on Electronically Signed By: Nir Cancino MD Electronically Signed Date/Time: 11/22/2023 1:57 PM EDT [facility] Patient Name: KATHYA HOOPER DOB: [...] not visualized in this exam for evaluation. [facility] Nir Cancino MD - 11/22/2023 Patient [...] Electronically Signed Date/Time: 11/22/2023 1:[address] [facility] Radiology Study observation (narrative) [facility] RF videography Hypopharynx a nd Esophagus Views for swallowing function W speech and W barium contrast POOrdered By: Nir Cancino on 11-22-2023 [facility] Work Phone: CBC W Auto Differential pane l (Bld)on 10-02-2023 Basophils (Bld) [#/Vol] 0.0 10*3/uL 0.0 - 0.2 10*3/uL [facility] Basophils/100 WBC (Bld) 0.3 % 0.0 - 2.0 % [facility] Eosinophils (Bld) [#/Vol] 0.0 10*3/uL 0.0 - 0.5 10*3/uL [facility] Eosinophils/100 WBC (Bld) 0.0 % 0.0 - 6.0 % [facility] Erythrocyte distribution width (RBC) [Ratio] 13.0 % 11.5 - 15.0 % [facility] Hematocrit (Bld) [Volume fraction] 37.8 % Low 40.0 - 52.0 % [facility] Hemoglobin (Bld) [Mass/Vol] 13.0 g/dL 13.0 - 18.0 g/dL [facility] Immature granulocytes (Bld) [#/Vol] 0.1 10*3/uL High NINF - 0.1 10*3/uL [facility] Immature granulocytes/100 WBC (Bld) 0.5 % 0.0 - 2.0 % [facility] Interpretation and review of laboratory results Abnormal [facility] Lymphocytes (Bld) [#/Vol] 0.9 10*3/uL Low 1.0 - 4.3 10*3/uL [facility] Lymphocytes/100 WBC (Bld) 8.4 % Low 15.0 - 45.0 % [facility] MCH (RBC) [Entitic mass] 30.3 pg 26.0 - 34.[address] [facility] MCHC (RBC) [Mass/Vol] 34.4 % 30.5 - 36.0 % [facility] MCV (RBC) [Entitic vol] 88.1 fL 77.0 - 99.[address] [facility] Monocytes (Bld) [#/Vol] 0.9 10*3/uL 0.0 - 0.9 10*3/uL [facility] Monocytes/100 WBC (Bld) 8.2 % 5.0 - 13.0 % [facility] Neutrophils (Bld) [#/Vol] 8.9 10*3/uL High 1.8 - 7.5 10*3/uL [facility] Neutrophils/100 WBC (Bld) 82.6 % High 38.0 - 82.0 % [facility] Nucleated RBC/100 WBC (Bld) [Ratio] 0.0 % [facility] Platelet mean volume (Bld) [Entitic vol] 10.7 fL 9.0 - 12.[address] [facility] Platelets (Bld) [#/Vol] 148 10*3/uL 140 - 440 10*3/uL [facility] RBC (Bld) [#/Vol] 4.29 10*6/uL Low 4.40 - 5.9 0 10*6/uL [facility] WBC (Bld) [#/Vol] 10.7 10*3/uL 3.6 - 10.7 10*3/uL [facility] CBC WITH AUTO DIFFERENTIALon 10-02-2023 Basophils (Bld) [#/Vol] 0.0 10*3/uL Normal 0.0-0.2 [facility] Comment on above: Performed By: #### L [id number] #### Home Security Alarm Installer: CYNDI LILLY ([id number]) [facility] (SBHLAB) [address] Basophils/100 WBC (Bld) 0.3 % Normal 0.0-2.0 [facility] Comment on above: Performed By: #### L [id number] #### Home Security Alarm Installer: CYNDI LILLY ([id number]) [facility] (SBHLAB) [address] Eosinophils (Bld) [#/Vol] 0.0 10*3/uL Normal 0.0-0.5 [facility] Comment on above: Performed By: #### L [id number] #### Home Security Alarm Installer: CYNDI LILLY ([id number]) [facility] (SB[facility] [address] Eosinophils/100 WBC (Bld) 0.0 % Normal 0.0-6.0 [facility] Comment on above: Performed By: #### L [id number] #### Home Security Alarm Installer: CYNDI LILLY ([id number]) [facility] ([facility] [address] Erythrocyte distribution width (RBC) [Ratio] 13.0 % Normal 11.5-15.0 [facility] Comment on above: Performed By: #### L [id number] #### Home Security Alarm Installer: CYNDI LILLY ([id number]) [facility] ([facility] [address] Hematocrit (Bld) [Volume fraction] 37.8 % Low 40.0-52.0 [facility] Comment on above: Performed By: #### L [id number] #### Home Security Alarm Installer: CYNDI LILLY ([id number]) [facility] ([facility] [address] Hemoglobin (Bld) [Mass/Vol] 13.0 g/dL Normal 13.0-18.0 [facility] Comment on above: Performed By: #### L [id number] #### Home Security Alarm Installer: CYNDI LILLY ([id number]) [facility] [place] ([facility]) [address] IMMATURE GRANS % 0.5 % Normal 0.0-2.0 [facility] Comment on above: Performed By: #### L [id number] #### Home Security Alarm Installer: CYNDI LILLY ([id number]) [facility] ([facility] [address] IMMATURE GRANS ABSOLUTE 0.1 10*3/uL High <0.1 [facility] Comment on above: Performed By: #### L [id number] #### Home Security Alarm Installer: CYNDI LILLY ([id number]) [facility] [address] Lymphocytes (Bld) [#/Vol] 0.9 10*3/uL Low 1.0-4.3 [facility] Comment on above: Performed By: #### L [id number] #### Home Security Alarm Installer: CYNDI LILLY ([id number]) [facility] [address] Lymphocytes/100 WBC (Bld) 8.4 % Low 15.0-45.0 [facility] Comment on above: Performed By: #### L [id number] #### Home Security Alarm Installer: CYNDI LILLY ([id number]) [facility] [address] MCH (RBC) [Entitic mass] 30.3 pg Normal 26.0-34.0 [facility] Comment on above: Performed By: #### L [id number] #### Home Security Alarm Installer: CYNDI LILLY ([id number]) [facility] ([facility] [address] MCHC 34.4 % Normal 30.5-36.0 [facility] Comment on above: Performed By: #### L [id number] #### Home Security Alarm Installer: CYNDI LILLY ([id number]) [facility] [address] [place] [address] [place] MCV (RBC) [Entitic vol] 88.1 fL Normal 77.0-99.0 [facility] Comment on above: Performed By: #### L [id number] #### Home Security Alarm Installer: CYNDI LILLY ([id number]) [facility] [place] ([facility] [address] Monocytes (Bld) [#/Vol] 0.9 10*3/uL Normal 0.0-0.9 [facility] Comment on above: Performed By: #### L [id number] #### Home Security Alarm Installer: CYNDI LILLY ([id number]) [facility] ([facility] [address] Monocytes/100 WBC (Bld) 8.2 % Normal 5.0-13.0 [facility] Comment on above: Performed By: #### L [id number] #### Home Security Alarm Installer: CYNDI LILLY ([id number]) [facility] [address] NEUTROPHILS ABSOLUTE 8.9 10*3/uL High 1.8-7.5 [facility] Comment on above: Performed By: #### L [id number] #### Home Security Alarm Installer: CYNDI LILLY ([id number]) [facility] ([facility] [address] Neutrophils/100 WBC (Bld) 82.6 % High 38.0-82.0 [facility] Comment on above: Performed By: #### L [id number] #### Home Security Alarm Installer: CYNDI LILLY ([id number]) [facility] ([facility] [address] [place] [address] [place] NRBC 0.0 /100 WBCs Normal 0.0-2.0 [facility] Comment on above: Performed By: #### L [id number] #### Home Security Alarm Installer: CYNDI LILLY ([id number]) [facility] ([facility] [address] Platelet mean volume (Bld) [Entitic vol] 10.7 fL Normal 9.0-12.7 [facility] Comment on above: Performed By: #### L [id number] #### Home Security Alarm Installer: CYNDI LILLY ([id number]) [facility] (SB[facility]) [address] Platelets (Bld) [#/Vol] 148 10*3/uL Normal 140-440 [facility] Comment on above: Performed By: #### L [id number] #### Home Security Alarm Installer: CYNDI LILLY ([id number]) [facility] (SBHLAB) [address] RBC (Bld) [#/Vol] 4.29 10*6/uL Low 4.40-5.90 [facility] Comment on above: Performed By: #### L [id number] #### Home Security Alarm Installer: CYNDI LILLY ([id number]) [facility] (SBHL[facility]) [address] WBC (Bld) [#/Vol] 10.7 10*3/uL Normal 3.6-10.7 [facility] Comment on above: Performed By: #### L [id number] #### Home Security Alarm Installer: CYNDI LILLY ([id number]) [facility] (SBHLAB) [address] [place] [address] COMPREHENSIVE METABOLIC PANE Reji 10-02-2023 Albumin [Mass/Vol] 3.7 g/dL Normal 3.5-5.0 [facility] Comment on above: Performed By: #### L [id number], [id number] ####Home Security Alarm Installer: CYNDI LILLY ([id number])[facility] (SBHLAB)[address] ALP [Catalytic activity/Vol] 78 U/L Normal 38-126 [facility] Comment on above: Performed By: #### L [id number], [id number] ####Home Security Alarm Installer: CYNDI LILLY ([id number])[facility] (SBHLAB)[address] ALT [Catalytic activity/Vol] 21 U/L Normal 0-49 [facility] Comment on above: Performed By: #### L [id number], [id number] ####Home Security Alarm Installer: CYNDI LILLY ([id number])[facility] [place] ([facility])[address] Anion gap [Moles/Vol] 10 mmol/L Normal 3-13 [facility] Comment on above: Performed By: #### L [id number], [id number] ####Home Security Alarm Installer: CYNDI LILLY ([id number])[facility] [place] ([facility])[address] AST [Catalytic activity/Vol] 29 U/L Normal 15-46 [facility] Comment on above: Performed By: #### L [id number], [id number] ####Home Security Alarm Installer: CYNDI LILLY ([id number])[facility] [place] ([facility])[address] Bilirubin [Mass/Vol] 1.1 mg/dL Normal 0.2-1.3 [facility] Comment on above: Performed By: #### L [id number], [id number] ####Home Security Alarm Installer: CYNDI LILLY ([id number])[facility] ([facility])[address] Calcium [Mass/Vol] 7.8 mg/dL Low 8.4-10.4 [facility] Comment on above: Performed By: #### L [id number], [id number] ####Home Security Alarm Installer: CYNDI LILLY ([id number])[facility] [place] ([facility])[address] Chloride [Moles/Vol] 102 mmol/L Normal 98-107 [facility] Comment on above: Performed By: #### L AB17, [id number] ####Home Security Alarm Installer: CYNDI LILLY ([id number])[facility] (SBHLAB)[address] [place] [address] [place] CO2 [Moles/Vol] 23 mmol/L Normal 22-30 [facility] Comment on above: Performed By: #### Alban AB17, [id number] ####Home Security Alarm Installer: CYNDI LILLY ([id number])[facility] (SBHLAB)[address] Creatinine [Mass/Vol] 0.58 mg/dL Low 0.66-1.25 [facility] Comment on above: Performed By: #### Alban AB17, [id number] ####Home Security Alarm Installer: CYNDI LILLY ([id number])[facility] (SBHLAB)[address] GLOMERULAR FILTRATION RATE ML/MIN/1.73 SQ M.PREDICTED >90.0 Normal >60.0 [facility] Comment on above: Result Comment: Calc ulation based on the Chronic Kidney Disease Epidemiology Collaboration (CKD-EPI) equation refit without adjustment for race Performed By: #### Alban YEH17, [id number] ####Home Security Alarm Installer: CYNDI LILLY ([id number])[facility] (SBHLAB)[address] Glucose [Mass/Vol] 111 mg/dL High 70-100 [facility] Comment on above: Performed By: #### Alban YEH17, [id number] ####Home Security Alarm Installer: CYNDI LILLY ([id number])[facility] (SBHLAB)[address] [place] [address] [place] Potassium [Moles/Vol] 4.0 mmol/L Normal 3.5-5.1 [facility] Comment on above: Performed By: #### Alban AB17, [id number] ####Home Security Alarm Installer: CYNDI LILLY ([id number])[facility] (SBHLAB)[address] Protein [Mass/Vol] 6.5 g/dL Normal 6.3-8.2 [facility] Comment on above: Performed By: #### L AB17, [id number] ####Home Security Alarm Installer: CYNDI LILLY ([id number])[facility] (HLAB)[address] Sodium [Moles/Vol] 135 mmol/L Normal 135-145 [facility] Comment on above: Performed By: #### L AB17, [id number] ####Home Security Alarm Installer: CYNDI LILLY ([id number])[facility] (HLAB)[address] Urea nitrogen [Mass/Vol] 18 mg/dL Normal 9-20 [facility] Comment on above: Performed By: #### L AB17, [id number] ####Home Security Alarm Installer: CYNDI LILLY ([id number])[facility] ([facility])[address] [place] [address] CT HEAD WO IV CONTRASTon CT HEAD WO IV CONTRAST [facility] 1955 [id number] Exam Date/Time: 10/02/2023 11:03 Procedure: CT HEAD WO IV CONTRAST Ordering Provider: TOLEDO AMY Reason For Exam: Neuro deficit, acute, stroke suspected EXAMINATION: CT HEAD WO IV CONTRAST HISTORY: Neuro deficit, acute, stroke suspected - - - - - [id number] - - - - TECHNIQUE: CT head [...] she has seen him for that day, operations supervisor 2nd shift did not report any problems. EMS [...] has no complaints at this time. Normal [facility] CT Head WO contraston [address] evidence of an acute intracranial abnormality. Report Dictated on Electronically Signed By: Maria Eugenia Ruiz MD Electronically Signed Date/Time: 10/02/2023 11:09 AM T [facility] Patient Name: KATHYA HOOPER : 1955 Exam Date/Time: 10/02/2023 11:03 Procedure: CT HEAD WO IV CONTRAST Ordering Provider: TOLEDO AMY Reason For Exam: Neuro deficit, acute, stroke suspected EXAMINATION: CT HEAD WO IV CONTRAST HISTORY: Neuro deficit, acute, stroke suspected - - - - - [id number] - - - - TECHNIQUE: CT head [...] air cells and the left sphenoid sinus [facility] aMria Eugenia Ruiz MD - 10/02/2023 Patient Name: KATHYA HOOPER : 1955 [facility]#: [id number] Exam Date/Time: 10/02/2023 11:03 Procedure: CT HEAD WO IV CONTRAST Ordering Provider: TOLEDO AMY Reason For Exam: Neuro deficit, acute, stroke suspected EXAMINATION: CT HEAD WO IV CONTRAST HISTORY: Neuro deficit, acute, stroke suspected - - - - - [id number] - - - - TECHNIQUE: CT head [...] Electronically Signed Date/Time: 10/02/2023 11:09 AM EDT [facility] dough Radiology Study observation (narrative) [facility] sarah CT Head WO contrastOrdered B y: Maria Eugenia Ruiz on 10-02-2023 [employer] dough Work Phone: Comprehensive metabolic 1998 panelon 10-02-2023 Albumin [Mass/Vol] 3.7 g/dL 3.5 - 5.0 g/dL [facility] dough ALP [Catalytic activity/Vol] 78 U/L 38 - 126 U/L [facility] dough ALT [Catalytic activity/Vol] 21 U/L 0 - 49 U/L [facility] dough Anion gap [Moles/Vol] 10 mmol/L 3 - 13 mmol/L [facility] dough AST [Catalytic activity/Vol] 29 U/L 15 - 46 U/L [facility] dough Bilirubin [Mass/Vol] 1.1 mg/dL 0.2 - 1 .3 mg/dL [facility] dough Calcium [Mass/Vol] 7.8 mg/dL Low 8.4 - 10. 4 mg/dL [facility] dough Chloride [Moles/Vol] 102 mmol/L 98 - 10 7 mmol/L [facility] CO2 [Moles/Vol] 23 mmol/L 22 - 30 mmol/L [facility] Creatinine [Mass/Vol] 0.58 mg/dL Low 0.66 - 1.25 mg/dL [facility] GFR/1.73 sq M.predicted MDRD (S/P/Bld) [Vol rate/Area] - PINF [facility] Comment on above: Calculation based on the Chronic Kidney Disease Epidemiology Collaboration (CKD-EPI) equation refit without adjustment for race Glucose [Mass/Vol] 111 mg/dL High 70 - 100 mg/dL [facility] Interpretation and review of laboratory results Abnormal [facility] Potassium [Moles/Vol] 4.0 mmol/L 3.5 - 5.1 mmol/L [facility] Protein [Mass/Vol] 6.5 g/dL 6.3 - 8.2 g/dL [facility] Sodium [Moles/Vol] 135 mmol/L 135 - 145 mmol/L [facility] Urea nitrogen [Mass/Vol] 18 mg/dL 9 - 20 mg/dL [facility] ECG 12-LEADon 10-02-2023 ECG 12-LEAD IMPRESSION: Sinus tachycardia Left bundle branch block ST elevation secondary to IVCD Electronically Signed On 10-02-2023 12:40:15 EDT by Fei Farooq [facility] ED Nursing Noteon 10-02-2023 ED Nursing Note [facility] at bedside at this time Mami Lantigua RN 10/02/23 1427 Normal [facility] ED Nursing Note This RN gave report to Marnie at [facility] at this time Mami Lantigua RN 10/02/23 1358 Normal [facility] ED Nursing Note This RN went to evaluate patient, was on 2L o2 and does not wear at baseline, plan is dc, this RN turned o2 off to trial patient, spo2 monitor on Mami Lantigua RN 10/02/23 1325 [facility] ED Nursing Note Pt to ct via cart Eloisa Alfaro RN 10/02/23 1043 [facility] ED Nursing Note Pt was [facility] for Left sided facial droop. Per EMS nurse is new and does not know patient very well but he is A&O x 2 at baseline. Per EMS the nurse states it was 20 mins ago. Contacted nurse that was caring for him and she states that was the first time she has seen him for that day, operations supervisor 2nd shift did not report any problems. EMS [...] the facility. Hx of schizophrenia. BS 131. [facility] ED Provider Noteon ED Provider Note [facility] ED eMERGENCY dEPARTMENT eNCOUnter Pt [...] to the emergency department from a local custodial facility where he is currently a resident. [...] History: Diagnosis Date TREVER (acute kidney injury) ([facility]) ([facility]) Alcohol abuse 07/08/2018 Anxiety C1 spinal cord injury ([facility]) ([facility]) Depression Fall 06/2018 Schizophrenia ([facility]) SURGICALHISTORY Past Surgical History: Procedure [...] EmergencyPhysician): Interpret (more content not included)... Normal [facility] ED Provider Note Emergency Department Encounter [facility] ED Patient: Kathya Hooper : [...] Solutions Fei Farooq MD 10/02/23 1129 Normal [facility] Laboratory - Chemistry and C hemistry - challengeon 10-02-2023 Troponin I.cardiac [Mass/Vol] ng/mL NINF - 0.034 ng/mL [facility] dough Laboratory - Coagulationon 0 10-02-2023 aPTT Coag (PPP) [Time] 29.6 s 20.0 - 30.5 s [facility] dough INR Coag (PPP) [Relative time] 1.1 {INR} 0.9 - 1.1 [facility] Comment on above: Recommended Anticoag [...] [Time] 11.6 s 9.0 - 12.0 s [facility] No Panel Informationon 10-01 Heart Rate [address] [facility] P [place] [address] [facility] VA Interval [address] [facility] QRS [place] -[address] [facility]val [facility]val [address] [facility] QTC Interval [address] [facility] T Wave [place] [address] [facility] Sinus tachycardia Left bundle branch block ST elevation secondary to IVCD Electronically Signed On 10-02-2023 12:40:15 EDT by Fei Farooq CV Fei Lopez MD - 10/02/2023 IMPRESSION: Sinus tachycardia Left bundle branch block ST elevation secondary to IVCD Electronically Signed On 10-02-2023 12:40:15 EDT by Fei Farooq [facility] Interpretation and review of laboratory results Normal [facility] PROTIME AND APTTon aPTT Coag (Bld) [Time] 29.6 s Normal 20.0-30.5 [facility] Comment on above: Performed By: #### L [id number] ####Home Security Alarm Installer: CYNDI LILLY ([id number])[facility] ([facility])[address] [place] [address] INR Coag (PPP) [Relative time] 1.1 {INR} Normal 0.9-1.1 [facility] Comment on above: Result Comment: Yefri mmended [...] prevent Myocardial Infarction Performed By: #### L [id number] ####Home Security Alarm Installer: CYNDI LILLY ([id number])[facility] ([facility])[address] [place] [address] PT Coag (PPP) [Time] 11.6 s Normal 9.0-12.0 [facility] Comment on above: Performed By: #### L [id number] ####Home Security Alarm Installer: CYNDI LILLY ([id number])[facility] ([facility])[address] [place] [address] TROPONIN, WITH SERIAL REFLEX on 10-02-2023 Troponin I.cardiac [Mass/Vol] ng/mL Normal <0.034 [facility] Comment on above: Result Comment: SHARON Stevens COMMENTS: Patients with high levels of Biotin oral intake (ie >5 mg/day) may have falsely decreased Troponin levels. Performed By: #### L AB17, [id number] ####Home Security Alarm Installer: CYNDI LILLY ([id number])[facility] ([facility])[address] [place] [address] Troponin I.cardiac [Mass/Vol ]on 10-02-2023 Interpretation and review of laboratory results Normal [facility] Patients with high levels of Biotin oral intake (ie >5 mg/day) may have falsely decreased Troponin levels. [facility] XR Chest Single viewon 10-01 No acute cardiopulmonary disease. Report Dictated on Electronically Signed By: Maria Eugenia Ruiz MD Electronically Signed Date/Time: 10/02/2023 11:06 AM [facility] [employer] Patient Name: KATHYA HOOPER : 1955 [...] spine and shoulders. No acute osseous findings. [facility] Maria Eugenia Ruiz MD [...] Signed Date/Time: 10/02/2023 11:06 AM EDT [facility] Radiology Study observation (narrative) [facility] Absolute lymphocyte countOrd ered By: Renard Burgos on 08-07-2023 Lymphocytes Auto (Unsp spec) [#/Vol] 2.23 10*3/uL 0.83-4.51 [facility] Automated lymphocyte count a s percentage of total leukocytesOrdered By: Renard Burgos on 08-07-2023 Lymphocytes/100 WBC Auto (Unsp spec) 23.9 % 19-41 [facility] Basophil percentageOrdered B y: Renard Burgos on 08-07-2023 Basophils/100 WBC (Bld) 0.4 % 0-1 [facility] Eosinophils/100 WBC (Bld) 0.4 % 0-5 [facility] Hemoglobin (Bld) [Mass/Vol] 13.9 g/dL 13.0-16.5 [facility] Monocytes/100 WBC (Bld) 8.0 % 0-10 [facility] Neutrophils (Bld) [#/Vol] 6.2 10*3/uL 2.0-7.7 [facility] Neutrophils/100 WBC (Bld) 66.9 % 47-70 [facility] WBC (Bld) [#/Vol] 9.3 10*3/uL 4.4-11.0 [facility] Determination of erythrocyte mean corpuscular volume (MCV)Ordered By: Renard Burgos on 08-07-2023 MCV (RBC) [Entitic vol] 90.0 fL 80-94 [facility] Erythrocyte distribution wid th ratioOrdered By: Renard Burgos on 08-07-2023 Erythrocyte distribution width (RBC) [Ratio] 13.0 % 11.6-14.6 [facility] Erythrocyte distribution wid th standard deviationOrdered By: Renard Burgos on 08-07-2023 Erythrocyte distribution width (RBC) [Entitic vol] 42.5 fL 35.1-43.9 [facility] Hematocrit Auto (Bld) [Volum e fraction]Ordered By: Renard Burgos on 08-07-2023 Hematocrit (Bld) [Volume fraction] 42.5 % 40-54 [facility] Immature granulocytes/100 WB C Auto (Bld)Ordered By: Renard Burgos on 08-07-2023 Immature granulocytes/100 WBC (Bld) 0.400 % 0.0-0.9 [facility] Comment on above: IG% - Immature Granu locytes (promyelocytes, myelocytes and metamyelocytes) > 1% indicates that a LEFT SHIFT is Present. Laboratory - Hematology and Cell countsOrdered By: Renard Burgos on 08-07-2023 MCH (RBC) [Entitic mass] 29.4 pg 27.0-32.0 [facility] MCHC (RBC) [Mass/Vol] 32.7 g/dL 32-36 [facility] Nucleated RBC/100 WBC (Bld) [Ratio] 0 % 0-5 [facility] Platelet mean volume (Bld) [Entitic vol] 10.7 fL 6.2-12.0 [facility] Platelets (Bld) [#/Vol] 210 10*3/uL 150-450 [facility] RBC Auto (Bld) [#/Vol]Ordere d By: Renard Burgos on 08-07-2023 RBC (Bld) [#/Vol] 4.72 10*6/uL 4.6-6.2 [facility] Absolute lymphocyte countOrd ered By: Renard Burgos on 07-31-2023 Lymphocytes Auto (Unsp spec) [#/Vol] 2.04 10*3/uL 0.83-4.51 [facility] Automated lymphocyte count a s percentage of total leukocytesOrdered By: Renard Burgos on 07-31-2023 Lymphocytes/100 WBC Auto (Unsp spec) 24.2 % 19-41 [facility] Basophil percentageOrdered B y: Renard Burgos on 07-31-2023 Basophils/100 WBC (Bld) 0.6 % 0-1 [facility] Eosinophils/100 WBC (Bld) 0.6 % 0-5 [facility] Hemoglobin (Bld) [Mass/Vol] 13.9 g/dL 13.0-16.5 [facility] Monocytes/100 WBC (Bld) 8.5 % 0-10 [facility] Neutrophils (Bld) [#/Vol] 5.5 10*3/uL 2.0-7.7 [facility] Neutrophils/100 WBC (Bld) 65.7 % 47-70 [facility] WBC (Bld) [#/Vol] 8.4 10*3/uL 4.4-11.0 [facility] Determination of erythrocyte mean corpuscular volume (MCV)Ordered By: Renard Burgos on 07-31-2023 MCV (RBC) [Entitic vol] 89.7 fL 80-94 [facility] Erythrocyte distribution wid th ratioOrdered By: Renard Burgos on 07-31-2023 Erythrocyte distribution width (RBC) [Ratio] 12.8 % 11.6-14.6 [facility] Erythrocyte distribution wid th standard deviationOrdered By: Renard Burgos on 07-31-2023 Erythrocyte distribution width (RBC) [Entitic vol] 42.2 fL 35.1-43.9 [facility] Hematocrit Auto (Bld) [Volum e fraction]Ordered By: Renard Burgos on 07-31-2023 Hematocrit (Bld) [Volume fraction] 41.7 % 40-54 [facility] Immature granulocytes/100 WB C Auto (Bld)Ordered By: Renard Burgos on 07-31-2023 Immature granulocytes/100 WBC (Bld) 0.400 % 0.0-0.9 [facility] Comment on above: IG% - Immature Granu locytes (promyelocytes, myelocytes and metamyelocytes) > 1% indicates that a LEFT SHIFT is Present. Laboratory - Hematology and Cell countsOrdered By: Renard Burgos on 07-31-2023 MCH (RBC) [Entitic mass] 29.9 pg 27.0-32.0 [facility] MCHC (RBC) [Mass/Vol] 33.3 g/dL 32-36 [facility] Nucleated RBC/100 WBC (Bld) [Ratio] 0 % 0-5 [facility] Platelet mean volume (Bld) [Entitic vol] 10.6 fL 6.2-12.0 [facility] Platelets (Bld) [#/Vol] 201 10*3/uL 150-450 [facility] RBC Auto (Bld) [#/Vol]Ordere d By: Renard uBrgos on 07-31-2023 RBC (Bld) [#/Vol] 4.65 10*6/uL 4.6-6.2 [facility] Absolute lymphocyte countOrd ered By: Renard Burgos on 07-24-2023 Lymphocytes Auto (Unsp spec) [#/Vol] 2.00 10*3/uL 0.83-4.51 [facility] Automated lymphocyte count a s percentage of total leukocytesOrdered By: Renard Burgos on 07-24-2023 Lymphocytes/100 WBC Auto (Unsp spec) 26.2 % 19-41 [facility] Basophil percentageOrdered B y: Renard Burgos on 07-24-2023 Basophils/100 WBC (Bld) 0.7 % 0-1 [facility] Eosinophils/100 WBC (Bld) 0.7 % 0-5 [facility] Hemoglobin (Bld) [Mass/Vol] 14.2 g/dL 13.0-16.5 [facility] Monocytes/100 WBC (Bld) 6.4 % 0-10 [facility] Neutrophils (Bld) [#/Vol] 5.0 10*3/uL 2.0-7.7 [facility] Neutrophils/100 WBC (Bld) 65.6 % 47-70 [facility] WBC (Bld) [#/Vol] 7.6 10*3/uL 4.4-11.0 [facility] Determination of erythrocyte mean corpuscular volume (MCV)Ordered By: Renard Burgos on 07-24-2023 MCV (RBC) [Entitic vol] 89.8 fL 80-94 [facility] Erythrocyte distribution wid th ratioOrdered By: Renard Burgos on 07-24-2023 Erythrocyte distribution width (RBC) [Ratio] 12.8 % 11.6-14.6 [facility] Erythrocyte distribution wid th standard deviationOrdered By: Renard Burgos on 07-24-2023 Erythrocyte distribution width (RBC) [Entitic vol] 42.0 fL 35.1-43.9 [facility] Hematocrit Auto (Bld) [Volum e fraction]Ordered By: Renard Burgos on 07-24-2023 Hematocrit (Bld) [Volume fraction] 43.3 % 40-54 [facility] Immature granulocytes/100 WB C Auto (Bld)Ordered By: Renard Burgos on 07-24-2023 Immature granulocytes/100 WBC (Bld) 0.400 % 0.0-0.9 [facility] Comment on above: IG% - Immature Granu locytes (promyelocytes, myelocytes and metamyelocytes) > 1% indicates that a LEFT SHIFT is Present. Laboratory - Hematology and Cell countsOrdered By: Renard Burgos on 07-24-2023 MCH (RBC) [Entitic mass] 29.5 pg 27.0-32.0 [facility] MCHC (RBC) [Mass/Vol] 32.8 g/dL 32-36 [facility] Nucleated RBC/100 WBC (Bld) [Ratio] 0 % 0-5 [facility] Platelet mean volume (Bld) [Entitic vol] 11.0 fL 6.2-12.0 [facility] Platelets (Bld) [#/Vol] 215 10*3/uL 150-450 [facility] RBC Auto (Bld) [#/Vol]Ordere d By: Renard Burgos on 07-24-2023 RBC (Bld) [#/Vol] 4.82 10*6/uL 4.6-6.2 [facility] Absolute lymphocyte countOrd ered By: Renard Burgos on 07-17-2023 Lymphocytes Auto (Unsp spec) [#/Vol] 2.22 10*3/uL 0.83-4.51 [facility] Automated lymphocyte count a s percentage of total leukocytesOrdered By: Renard Burgos on 07-17-2023 Lymphocytes/100 WBC Auto (Unsp spec) 25.4 % 19-41 [facility] Basophil percentageOrdered B y: Renard Burgos on 07-17-2023 Basophils/100 WBC (Bld) 0.5 % 0-1 [facility] Cholesterol [Mass/Vol] 126 mg/dL <200 [facility] Comment on above: <200 mg/dL Desirable 200-240 mg/dL Borderline >240 mg/dL High Risk Eosinophils/100 WBC (Bld) 0.6 % 0-5 [facility] Hemoglobin (Bld) [Mass/Vol] 14.0 g/dL 13.0-16.5 [facility] Monocytes/100 WBC (Bld) 6.6 % 0-10 [facility] Neutrophils (Bld) [#/Vol] 5.8 10*3/uL 2.0-7.7 [facility] Neutrophils/100 WBC (Bld) 66.4 % 47-70 [facility] Triglyceride [Mass/Vol] 176 mg/dL <199 [facility] Comment on above: The drugs N-Acetylcy steine and Metamizole may falsely depress this assay.Serum Triglycerides Reference Interval Normal <150 mg/dL Borderline high 150 - 199 mg/dL High 200 - 499 mg/dL Very High > or = 500 mg/dL WBC (Bld) [#/Vol] 8.7 10*3/uL 4.4-11.0 [facility] Determination of erythrocyte mean corpuscular volume (MCV)Ordered By: Renard Burgos on 07-17-2023 MCV (RBC) [Entitic vol] 90.5 fL 80-94 [facility] Erythrocyte distribution wid th ratioOrdered By: Renard Burgos on 07-17-2023 Erythrocyte distribution width (RBC) [Ratio] 12.4 % 11.6-14.6 [facility] Erythrocyte distribution wid th standard deviationOrdered By: Renard Burgos on 07-17-2023 Erythrocyte distribution width (RBC) [Entitic vol] 41.1 fL 35.1-43.9 [facility] Hematocrit Auto (Bld) [Volum e fraction]Ordered By: Renard Burgos on 07-17-2023 Hematocrit (Bld) [Volume fraction] 42.8 % 40-54 [facility] Immature granulocytes/100 WB C Auto (Bld)Ordered By: Renard Burgos on 07-17-2023 Immature granulocytes/100 WBC (Bld) 0.500 % 0.0-0.9 [facility] Comment on above: IG% - Immature Granu locytes (promyelocytes, myelocytes and metamyelocytes) > 1% indicates that a LEFT SHIFT is Present. Laboratory - Chemistry and C hemistry - challengeOrdered By: Renard Burgos on 07-17-2023 Cholesterol in HDL [Mass/Vol] 28 mg/dL >40 [facility] Comment on above: The drugs N-Acetylcy steine and Metamizole may falsely depress this assay. Reference Range HDL <40 mg/dL Low HDL Cholesterol HDL >or= 60 mg/dL High HDL Cholesterol Cholesterol in LDL [Mass/Vol] 63 mg/dL 0-130 [facility] Laboratory - Hematology and Cell countsOrdered By: Renard Burgos on 07-17-2023 MCH (RBC) [Entitic mass] 29.6 pg 27.0-32.0 [facility] MCHC (RBC) [Mass/Vol] 32.7 g/dL 32-36 [facility] Nucleated RBC/100 WBC (Bld) [Ratio] 0 % 0-5 [facility] Platelet mean volume (Bld) [Entitic vol] 10.9 fL 6.2-12.0 [facility] Platelets (Bld) [#/Vol] 193 10*3/uL 150-450 [facility] No Panel InformationOrdered By: Renard Burgos on 07-17-2023 Vitamin D 25-Hydroxy 33.1 ng/mL [facility] Comment on above: Vitamin D 25(OH) Sta tus Range Deficiency <20 ng/mL (50nmol/L) Insufficiency 20 - 30 ng/mL (50 - 75 nmol/L) Sufficiency 30 - 100 ng/mL (75 - 250 nmol/L) Toxicity >100 ng/mL (>250 nmol/L) VLDL Cholesterol 35 mg/dL 5-40 [facility] RBC Auto (Bld) [#/Vol]Ordere d By: Renard Burgos on 07-17-2023 RBC (Bld) [#/Vol] 4.73 10*6/uL 4.6-6.2 [facility] Absolute lymphocyte countOrd ered By: Renard Burgos on 07-10-2023 Lymphocytes Auto (Unsp spec) [#/Vol] 2.14 10*3/uL 0.83-4.51 [facility] Automated lymphocyte count a s percentage of total leukocytesOrdered By: Renard Burgos on 07-10-2023 Lymphocytes/100 WBC Auto (Unsp spec) 24.7 % 19-41 [facility] Basophil percentageOrdered B y: Renard Burgos on 07-10-2023 Basophils/100 WBC (Bld) 0.3 % 0-1 [facility] Eosinophils/100 WBC (Bld) 0.3 % 0-5 [facility] Hemoglobin (Bld) [Mass/Vol] 13.8 g/dL 13.0-16.5 [facility] Monocytes/100 WBC (Bld) 7.8 % 0-10 [facility] Neutrophils (Bld) [#/Vol] 5.8 10*3/uL 2.0-7.7 [facility] Neutrophils/100 WBC (Bld) 66.4 % 47-70 [facility] WBC (Bld) [#/Vol] 8.7 10*3/uL 4.4-11.0 [facility] Determination of erythrocyte mean corpuscular volume (MCV)Ordered By: Renard Burgos on 07-10-2023 MCV (RBC) [Entitic vol] 88.9 fL 80-94 [facility] Erythrocyte distribution wid th ratioOrdered By: Renard Burgos on 07-10-2023 Erythrocyte distribution width (RBC) [Ratio] 12.6 % 11.6-14.6 [facility] Erythrocyte distribution wid th standard deviationOrdered By: Renard Burgos on 07-10-2023 Erythrocyte distribution width (RBC) [Entitic vol] 40.6 fL 35.1-43.9 [facility] Hematocrit Auto (Bld) [Volum e fraction]Ordered By: Renard Burgos on 07-10-2023 Hematocrit (Bld) [Volume fraction] 41.0 % 40-54 [facility] Immature granulocytes/100 WB C Auto (Bld)Ordered By: Renard Burgos on 07-10-2023 Immature granulocytes/100 WBC (Bld) 0.500 % 0.0-0.9 [facility] Comment on above: IG% - Immature Granu locytes (promyelocytes, myelocytes and metamyelocytes) > 1% indicates that a LEFT SHIFT is Present. Laboratory - Hematology and Cell countsOrdered By: Renard Burgos on 07-10-2023 MCH (RBC) [Entitic mass] 29.9 pg 27.0-32.0 [facility] MCHC (RBC) [Mass/Vol] 33.7 g/dL 32-36 [facility] Nucleated RBC/100 WBC (Bld) [Ratio] 0 % 0-5 [facility] Platelet mean volume (Bld) [Entitic vol] 11.0 fL 6.2-12.0 [facility] Platelets (Bld) [#/Vol] 215 10*3/uL 150-450 [facility] RBC Auto (Bld) [#/Vol]Ordere d By: Renard Burgos on 07-10-2023 RBC (Bld) [#/Vol] 4.61 10*6/uL 4.6-6.2 [facility] Absolute lymphocyte countOrd ered By: Renard Burgos on 07-03-2023 Lymphocytes Auto (Unsp spec) [#/Vol] 1.84 10*3/uL 0.83-4.51 [facility] Automated lymphocyte count a s percentage of total leukocytesOrdered By: Renard Burgos on 07-03-2023 Lymphocytes/100 WBC Auto (Unsp spec) 16.9 % 19-41 [facility] Basophil percentageOrdered B y: Renard Burgos on 07-03-2023 Basophil percentage 3.17 ng/mL 0.0-4.0 [facility] Comment on above: This test was perfor med using the TPSA assay method for the[employer] chemistry system. Values obtained with differentassay methods cannot be used interchangably.When changing PSA assays in the course of monitoring apatient, additional sequential testing should be carriedout to confirm baseline values. Basophils/100 WBC (Bld) 0.5 % 0-1 [facility] Eosinophils/100 WBC (Bld) 0.4 % 0-5 [facility] Hemoglobin (Bld) [Mass/Vol] 13.2 g/dL 13.0-16.5 [facility] Monocytes/100 WBC (Bld) 7.4 % 0-10 [facility] Neutrophils (Bld) [#/Vol] 8.1 10*3/uL 2.0-7.7 [facility] Neutrophils/100 WBC (Bld) 74.4 % 47-70 [facility] WBC (Bld) [#/Vol] 10.9 10*3/uL 4.4-11.0 [facility] Determination of erythrocyte mean corpuscular volume (MCV)Ordered By: Renard Burgos on 07-03-2023 MCV (RBC) [Entitic vol] 89.8 fL 80-94 [facility] Erythrocyte distribution wid th ratioOrdered By: Renard Burgos on 07-03-2023 Erythrocyte distribution width (RBC) [Ratio] 12.7 % 11.6-14.6 [facility] Erythrocyte distribution wid th standard deviationOrdered By: Renard Burgos on 07-03-2023 Erythrocyte distribution width (RBC) [Entitic vol] 41.9 fL 35.1-43.9 [facility] Hematocrit Auto (Bld) [Volum e fraction]Ordered By: Renard Burgos on 07-03-2023 Hematocrit (Bld) [Volume fraction] 40.3 % 40-54 [facility] Immature granulocytes/100 WB C Auto (Bld)Ordered By: Renard Burgos on 07-03-2023 Immature granulocytes/100 WBC (Bld) 0.400 % 0.0-0.9 [facility] Comment on above: IG% - Immature Granu locytes (promyelocytes, myelocytes and metamyelocytes) > 1% indicates that a LEFT SHIFT is Present. Laboratory - Hematology and Cell countsOrdered By: Renard Burgos on 07-03-2023 MCH (RBC) [Entitic mass] 29.4 pg 27.0-32.0 [facility] MCHC (RBC) [Mass/Vol] 32.8 g/dL 32-36 [facility] Nucleated RBC/100 WBC (Bld) [Ratio] 0 % 0-5 [facility] Platelet mean volume (Bld) [Entitic vol] 11.2 fL 6.2-12.0 [facility] Platelets (Bld) [#/Vol] 191 10*3/uL 150-450 [facility] RBC Auto (Bld) [#/Vol]Ordere d By: Renard Burgos on 07-03-2023 RBC (Bld) [#/Vol] 4.49 10*6/uL 4.6-6.2 [facility] Absolute lymphocyte countOrd ered By: Renard Burgos on 06-26-2023 Lymphocytes Auto (Unsp spec) [#/Vol] 2.23 10*3/uL 0.83-4.51 [facility] Automated lymphocyte count a s percentage of total leukocytesOrdered By: Renard Burgos on 06-26-2023 Lymphocytes/100 WBC Auto (Unsp spec) 27.3 % 19-41 [facility] Basophil percentageOrdered B y: Renard Burgos on 06-26-2023 Basophils/100 WBC (Bld) 0.5 % 0-1 [facility] Eosinophils/100 WBC (Bld) 0.7 % 0-5 [facility] Hemoglobin (Bld) [Mass/Vol] 13.7 g/dL 13.0-16.5 [facility] Monocytes/100 WBC (Bld) 9.5 % 0-10 [facility] Neutrophils (Bld) [#/Vol] 5.1 10*3/uL 2.0-7.7 [facility] Neutrophils/100 WBC (Bld) 61.8 % 47-70 [facility] WBC (Bld) [#/Vol] 8.2 10*3/uL 4.4-11.0 [facility] Determination of erythrocyte mean corpuscular volume (MCV)Ordered By: Renard Burgos on 06-26-2023 MCV (RBC) [Entitic vol] 92.2 fL 80-94 [facility] Erythrocyte distribution wid th ratioOrdered By: Renard Burgos on 06-26-2023 Erythrocyte distribution width (RBC) [Ratio] 12.7 % 11.6-14.6 [facility] Erythrocyte distribution wid th standard deviationOrdered By: Renard Burgos on 06-26-2023 Erythrocyte distribution width (RBC) [Entitic vol] 42.8 fL 35.1-43.9 [facility] Hematocrit Auto (Bld) [Volum e fraction]Ordered By: Renard Burgos on 06-26-2023 Hematocrit (Bld) [Volume fraction] 42.6 % 40-54 [facility] Immature granulocytes/100 WB C Auto (Bld)Ordered By: Renard Burgos on 06-26-2023 Immature granulocytes/100 WBC (Bld) 0.200 % 0.0-0.9 [facility] Comment on above: IG% - Immature Granu locytes (promyelocytes, myelocytes and metamyelocytes) > 1% indicates that a LEFT SHIFT is Present. Laboratory - Hematology and Cell countsOrdered By: Renard Burgos on 06-26-2023 MCH (RBC) [Entitic mass] 29.7 pg 27.0-32.0 [facility] MCHC (RBC) [Mass/Vol] 32.2 g/dL 32-36 [facility] Nucleated RBC/100 WBC (Bld) [Ratio] 0 % 0-5 [facility] Platelet mean volume (Bld) [Entitic vol] 11.0 fL 6.2-12.0 [facility] Platelets (Bld) [#/Vol] 182 10*3/uL 150-450 [facility] RBC Auto (Bld) [#/Vol]Ordere d By: Renard Burgos on 06-26-2023 RBC (Bld) [#/Vol] 4.62 10*6/uL 4.6-6.2 [facility] Absolute lymphocyte countOrd ered By: Renard Burgos on 06-19-2023 Lymphocytes Auto (Unsp spec) [#/Vol] 2.13 10*3/uL 0.83-4.51 [facility] Automated lymphocyte count a s percentage of total leukocytesOrdered By: Renard Burgos on 06-19-2023 Lymphocytes/100 WBC Auto (Unsp spec) 28.8 % 19-41 [facility] Basophil percentageOrdered B y: Renard Burgos on 06-19-2023 Basophils/100 WBC (Bld) 0.5 % 0-1 [facility] Eosinophils/100 WBC (Bld) 0.5 % 0-5 [facility] Hemoglobin (Bld) [Mass/Vol] 13.7 g/dL 13.0-16.5 [facility] Monocytes/100 WBC (Bld) 8.1 % 0-10 [facility] Neutrophils (Bld) [#/Vol] 4.6 10*3/uL 2.0-7.7 [facility] Neutrophils/100 WBC (Bld) 61.6 % 47-70 [facility] WBC (Bld) [#/Vol] 7.4 10*3/uL 4.4-11.0 [facility] Determination of erythrocyte mean corpuscular volume (MCV)Ordered By: Renard Burgos on 06-19-2023 MCV (RBC) [Entitic vol] 91.7 fL 80-94 [facility] Erythrocyte distribution wid th ratioOrdered By: Renard Burgos on 06-19-2023 Erythrocyte distribution width (RBC) [Ratio] 12.7 % 11.6-14.6 [facility] Erythrocyte distribution wid th standard deviationOrdered By: Renard Burgos on 06-19-2023 Erythrocyte distribution width (RBC) [Entitic vol] 42.8 fL 35.1-43.9 [facility] Hematocrit Auto (Bld) [Volum e fraction]Ordered By: Renard Burgos on 06-19-2023 Hematocrit (Bld) [Volume fraction] 43.1 % 40-54 [facility] Immature granulocytes/100 WB C Auto (Bld)Ordered By: Renard Burgos on 06-19-2023 Immature granulocytes/100 WBC (Bld) 0.500 % 0.0-0.9 [facility] Comment on above: IG% - Immature Granu locytes (promyelocytes, myelocytes and metamyelocytes) > 1% indicates that a LEFT SHIFT is Present. Laboratory - Hematology and Cell countsOrdered By: Renard Burgos on 06-19-2023 MCH (RBC) [Entitic mass] 29.1 pg 27.0-32.0 [facility] MCHC (RBC) [Mass/Vol] 31.8 g/dL 32-36 [facility] Nucleated RBC/100 WBC (Bld) [Ratio] 0 % 0-5 [facility] Platelet mean volume (Bld) [Entitic vol] 11.1 fL 6.2-12.0 [facility] Platelets (Bld) [#/Vol] 201 10*3/uL 150-450 [facility] RBC Auto (Bld) [#/Vol]Ordere d By: Renard Burgos on 06-19-2023 RBC (Bld) [#/Vol] 4.70 10*6/uL 4.6-6.2 [facility] Absolute lymphocyte countOrd ered By: Renard Burgos on 06-12-2023 Lymphocytes Auto (Unsp spec) [#/Vol] 2.17 10*3/uL 0.83-4.51 [facility] Automated lymphocyte count a s percentage of total leukocytesOrdered By: Renard Burgos on 06-12-2023 Lymphocytes/100 WBC Auto (Unsp spec) 26.7 % 19-41 [facility] Basophil percentageOrdered B y: Renard Burgos on 06-12-2023 Basophils/100 WBC (Bld) 0.4 % 0-1 [facility] Eosinophils/100 WBC (Bld) 0.5 % 0-5 [facility] Hemoglobin (Bld) [Mass/Vol] 13.5 g/dL 13.0-16.5 [facility] Monocytes/100 WBC (Bld) 9.0 % 0-10 [facility] Neutrophils (Bld) [#/Vol] 5.1 10*3/uL 2.0-7.7 [facility] Neutrophils/100 WBC (Bld) 63.0 % 47-70 [facility] WBC (Bld) [#/Vol] 8.1 10*3/uL 4.4-11.0 [facility] Determination of erythrocyte mean corpuscular volume (MCV)Ordered By: Renard Burgos on 06-12-2023 MCV (RBC) [Entitic vol] 91.3 fL 80-94 [facility] Erythrocyte distribution wid th ratioOrdered By: Renard Burgos on 06-12-2023 Erythrocyte distribution width (RBC) [Ratio] 12.6 % 11.6-14.6 [facility] Erythrocyte distribution wid th standard deviationOrdered By: Renard Burgos on 06-12-2023 Erythrocyte distribution width (RBC) [Entitic vol] 41.5 fL 35.1-43.9 [facility] Hematocrit Auto (Bld) [Volum e fraction]Ordered By: Renard Burgos on 06-12-2023 Hematocrit (Bld) [Volume fraction] 40.8 % 40-54 [facility] Immature granulocytes/100 WB C Auto (Bld)Ordered By: Renard Burgos on 06-12-2023 Immature granulocytes/100 WBC (Bld) 0.400 % 0.0-0.9 [facility] Comment on above: IG% - Immature Granu locytes (promyelocytes, myelocytes and metamyelocytes) > 1% indicates that a LEFT SHIFT is Present. Laboratory - Hematology and Cell countsOrdered By: Renard Burgos on 06-12-2023 MCH (RBC) [Entitic mass] 30.2 pg 27.0-32.0 [facility] MCHC (RBC) [Mass/Vol] 33.1 g/dL 32-36 [facility] Nucleated RBC/100 WBC (Bld) [Ratio] 0 % 0-5 [facility] Platelet mean volume (Bld) [Entitic vol] 11.0 fL 6.2-12.0 [facility] Platelets (Bld) [#/Vol] 195 10*3/uL 150-450 [facility] RBC Auto (Bld) [#/Vol]Ordere d By: Renard Burgos on 06-12-2023 RBC (Bld) [#/Vol] 4.47 10*6/uL 4.6-6.2 [facility] Absolute lymphocyte countOrd ered By: Renard Burgos on 06-05-2023 Lymphocytes Auto (Unsp spec) [#/Vol] 2.05 10*3/uL 0.83-4.51 [facility] Automated lymphocyte count a s percentage of total leukocytesOrdered By: Renard Burgos on 06-05-2023 Lymphocytes/100 WBC Auto (Unsp spec) 24.1 % 19-41 [facility] Basophil percentageOrdered B y: Renard Burgos on 06-05-2023 Basophils/100 WBC (Bld) 0.5 % 0-1 [facility] Eosinophils/100 WBC (Bld) 0.5 % 0-5 [facility] Hemoglobin (Bld) [Mass/Vol] 13.6 g/dL 13.0-16.5 [facility] Monocytes/100 WBC (Bld) 7.6 % 0-10 [facility] Neutrophils (Bld) [#/Vol] 5.7 10*3/uL 2.0-7.7 [facility] Neutrophils/100 WBC (Bld) 66.9 % 47-70 [facility] WBC (Bld) [#/Vol] 8.5 10*3/uL 4.4-11.0 [facility] Determination of erythrocyte mean corpuscular volume (MCV)Ordered By: Renard Burgos on 06-05-2023 MCV (RBC) [Entitic vol] 89.7 fL 80-94 [facility] Erythrocyte distribution wid th ratioOrdered By: Renard Burgos on 06-05-2023 Erythrocyte distribution width (RBC) [Ratio] 12.6 % 11.6-14.6 [facility] Erythrocyte distribution wid th standard deviationOrdered By: Renard Burgos on 06-05-2023 Erythrocyte distribution width (RBC) [Entitic vol] 41.1 fL 35.1-43.9 [facility] Hematocrit Auto (Bld) [Volum e fraction]Ordered By: Renard Burgos on 06-05-2023 Hematocrit (Bld) [Volume fraction] 41.0 % 40-54 [facility] Immature granulocytes/100 WB C Auto (Bld)Ordered By: Renard Burgos on 06-05-2023 Immature granulocytes/100 WBC (Bld) 0.400 % 0.0-0.9 [facility] Comment on above: IG% - Immature Granu locytes (promyelocytes, myelocytes and metamyelocytes) > 1% indicates that a LEFT SHIFT is Present. Laboratory - Hematology and Cell countsOrdered By: Renard Burgos on 06-05-2023 MCH (RBC) [Entitic mass] 29.8 pg 27.0-32.0 [facility] MCHC (RBC) [Mass/Vol] 33.2 g/dL 32-36 [facility] Nucleated RBC/100 WBC (Bld) [Ratio] 0 % 0-5 [facility] Platelets (Bld) [#/Vol] 193 10*3/uL 150-450 [facility] Platelet mean volume Adam-Ec ker (Bld) [Entitic vol]Ordered By: Renard Burgos on 06-05-2023 Platelet mean volume (Bld) [Entitic vol] 10.8 fL 6.2-12.0 [facility] RBC Auto (Bld) [#/Vol]Ordere d By: Renard Burgos on 06-05-2023 RBC (Bld) [#/Vol] 4.57 10*6/uL 4.6-6.2 [facility] Absolute lymphocyte countOrd ered By: Renard Burgos on 05-29-2023 Lymphocytes Auto (Unsp spec) [#/Vol] 2.32 10*3/uL 0.83-4.51 [facility] Automated lymphocyte count a s percentage of total leukocytesOrdered By: Renard Burgos on 05-29-2023 Lymphocytes/100 WBC Auto (Unsp spec) 26.7 % 19-41 [facility] Basophil percentageOrdered B y: Renard Burgos on 05-29-2023 Basophils/100 WBC (Bld) 0.6 % 0-1 [facility] Eosinophils/100 WBC (Bld) 0.5 % 0-5 [facility] Hemoglobin (Bld) [Mass/Vol] 14.2 g/dL 13.0-16.5 [facility] Monocytes/100 WBC (Bld) 6.8 % 0-10 [facility] Neutrophils (Bld) [#/Vol] 5.7 10*3/uL 2.0-7.7 [facility] Neutrophils/100 WBC (Bld) 65.2 % 47-70 [facility] WBC (Bld) [#/Vol] 8.7 10*3/uL 4.4-11.0 [facility] Determination of erythrocyte mean corpuscular volume (MCV)Ordered By: Renard Burgos on 05-29-2023 MCV (RBC) [Entitic vol] 94.0 fL 80-94 [facility] Erythrocyte distribution wid th ratioOrdered By: Renard Burgos on 05-29-2023 Erythrocyte distribution width (RBC) [Ratio] 12.6 % 11.6-14.6 [facility] Erythrocyte distribution wid th standard deviationOrdered By: Renard Burgos on 05-29-2023 Erythrocyte distribution width (RBC) [Entitic vol] 43.0 fL 35.1-43.9 [facility] Hematocrit Auto (Bld) [Volum e fraction]Ordered By: Renard Burgos on 05-29-2023 Hematocrit (Bld) [Volume fraction] 45.4 % 40-54 [facility] Immature granulocytes/100 WB C Auto (Bld)Ordered By: Renard Burgos on 05-29-2023 Immature granulocytes/100 WBC (Bld) 0.200 % 0.0-0.9 [facility] Comment on above: IG% - Immature Granu locytes (promyelocytes, myelocytes and metamyelocytes) > 1% indicates that a LEFT SHIFT is Present. Laboratory - Hematology and Cell countsOrdered By: Renard Burgos on 05-29-2023 MCH (RBC) [Entitic mass] 29.4 pg 27.0-32.0 [facility] MCHC (RBC) [Mass/Vol] 31.3 g/dL 32-36 [facility] Nucleated RBC/100 WBC (Bld) [Ratio] 0 % 0-5 [facility] Platelets (Bld) [#/Vol] 116 10*3/uL 150-450 [facility] Platelet mean volume Adam-Ec ker (Bld) [Entitic vol]Ordered By: Renard Burgos on 05-29-2023 Platelet mean volume (Bld) [Entitic vol] 11.1 fL 6.2-12.0 [facility] RBC Auto (Bld) [#/Vol]Ordere d By: Renard Burgos on 05-29-2023 RBC (Bld) [#/Vol] 4.83 10*6/uL 4.6-6.2 [facility] Absolute lymphocyte countOrd ered By: Renard Burgos on 05-22-2023 Lymphocytes Auto (Unsp spec) [#/Vol] 2.40 10*3/uL 0.83-4.51 [facility] Automated lymphocyte count a s percentage of total leukocytesOrdered By: Renard Burgos on 05-22-2023 Lymphocytes/100 WBC Auto (Unsp spec) 25.6 % 19-41 [facility] Basophil percentageOrdered B y: Renard Burgos on 05-22-2023 Basophils/100 WBC (Bld) 0.4 % 0-1 [facility] Eosinophils/100 WBC (Bld) 0.4 % 0-5 [facility] Hemoglobin (Bld) [Mass/Vol] 13.7 g/dL 13.0-16.5 [facility] Monocytes/100 WBC (Bld) 9.1 % 0-10 [facility] Neutrophils (Bld) [#/Vol] 6.0 10*3/uL 2.0-7.7 [facility] Neutrophils/100 WBC (Bld) 63.9 % 47-70 [facility] WBC (Bld) [#/Vol] 9.4 10*3/uL 4.4-11.0 [facility] Determination of erythrocyte mean corpuscular volume (MCV)Ordered By: Renard Burgos on 05-22-2023 MCV (RBC) [Entitic vol] 91.8 fL 80-94 [facility] Erythrocyte distribution wid th ratioOrdered By: Renard Burgos on 05-22-2023 Erythrocyte distribution width (RBC) [Ratio] 12.8 % 11.6-14.6 [facility] Erythrocyte distribution wid th standard deviationOrdered By: Renard Burgos on 05-22-2023 Erythrocyte distribution width (RBC) [Entitic vol] 43.4 fL 35.1-43.9 [facility] Hematocrit Auto (Bld) [Volum e fraction]Ordered By: Renard Burgos on 05-22-2023 Hematocrit (Bld) [Volume fraction] 41.5 % 40-54 [facility] Immature granulocytes/100 WB C Auto (Bld)Ordered By: Renard Burgos on 05-22-2023 Immature granulocytes/100 WBC (Bld) 0.600 % 0.0-0.9 [facility] Comment on above: IG% - Immature Granu locytes (promyelocytes, myelocytes and metamyelocytes) > 1% indicates that a LEFT SHIFT is Present. Laboratory - Hematology and Cell countsOrdered By: Renard Burgos on 05-22-2023 MCH (RBC) [Entitic mass] 30.3 pg 27.0-32.0 [facility] MCHC (RBC) [Mass/Vol] 33.0 g/dL 32-36 [facility] Nucleated RBC/100 WBC (Bld) [Ratio] 0 % 0-5 [facility] Platelets (Bld) [#/Vol] 192 10*3/uL 150-450 [facility] Platelet mean volume Adam-Ec ker (Bld) [Entitic vol]Ordered By: Renard Burgos on 05-22-2023 Platelet mean volume (Bld) [Entitic vol] 11.3 fL 6.2-12.0 [facility] RBC Auto (Bld) [#/Vol]Ordere d By: Renard Burgos on 05-22-2023 RBC (Bld) [#/Vol] 4.52 10*6/uL 4.6-6.2 [facility] Absolute lymphocyte countOrd ered By: Renard Burgos on 05-15-2023 Lymphocytes Auto (Unsp spec) [#/Vol] 2.11 10*3/uL 0.83-4.51 [facility] Basophil percentageOrdered B y: Renard Burgos on 05-15-2023 Basophils/100 WBC (Bld) 0.6 % 0-1 [facility] Eosinophils/100 WBC (Bld) 0.8 % 0-5 [facility] Neutrophils (Bld) [#/Vol] 4.9 10*3/uL 2.0-7.7 [facility] Neutrophils/100 WBC (Bld) 62.4 % 47-70 [facility] WBC (Bld) [#/Vol] 7.9 10*3/uL 4.4-11.0 [facility] Blood erythrocytes count (nu mber/volume)Ordered By: Renard Burgos on 05-15-2023 RBC (Bld) [#/Vol] 4.61 10*6/uL 4.6-6.2 [facility] Blood hemoglobin measurement (mass/volume)Ordered By: Renard Burgos on 05-15-2023 Hemoglobin (Bld) [Mass/Vol] 13.9 g/dL 13.0-16.5 [facility] Blood lymphocytes/100 leukoc ytesOrdered By: Renard Burgos on 05-15-2023 Lymphocytes/100 WBC (Bld) 26.7 % 19-41 [facility] Blood monocytes/100 leukocyt esOrdered By: Renard Burgos on 05-15-2023 Monocytes/100 WBC (Bld) 9.1 % 0-10 [facility] Blood platelet mean volumeOr dered By: Renard Burgos on 05-15-2023 Platelet mean volume (Bld) [Entitic vol] 10.7 fL 6.2-12.0 [facility] Determination of erythrocyte mean corpuscular volume (MCV)Ordered By: Renard Burgos on 05-15-2023 MCV (RBC) [Entitic vol] 90.5 fL 80-94 [facility] Hematocrit Auto (Bld) [Volum e fraction]Ordered By: Renard Burgos on 05-15-2023 Hematocrit (Bld) [Volume fraction] 41.7 % 40-54 [facility] Laboratory - Hematology and Cell countsOrdered By: Renard Burgos on 05-15-2023 Erythrocyte distribution width (RBC) [Entitic vol] 42.4 fL 35.1-43.9 [facility] Erythrocyte distribution width (RBC) [Ratio] 12.9 % 11.6-14.6 [facility] Immature granulocytes/100 WBC (Bld) 0.400 % 0.0-0.9 [facility] Comment on above: IG% - Immature Granu locytes (promyelocytes, myelocytes and metamyelocytes) > 1% indicates that a LEFT SHIFT is Present. MCH (RBC) [Entitic mass] 30.2 pg 27.0-32.0 [facility] Nucleated RBC/100 WBC (Bld) [Ratio] 0 % 0-5 [facility] MCHC Auto (RBC) [Mass/Vol]Or dered By: Renard Burgos on 05-15-2023 MCHC (RBC) [Mass/Vol] 33.3 g/dL 32-36 [facility] Platelets bldOrdered By: Lyubov Burgos on 05-15-2023 Platelets (Bld) [#/Vol] 202 10*3/uL 150-450 [facility] Absolute lymphocyte countOrd ered By: Renard Burgos on 05-08-2023 Lymphocytes Auto (Unsp spec) [#/Vol] 2.06 10*3/uL 0.83-4.51 [facility] Basophil percentageOrdered B y: Renrad Burgos on 05-08-2023 Basophils/100 WBC (Bld) 0.4 % 0-1 [facility] Eosinophils/100 WBC (Bld) 0.5 % 0-5 [facility] Neutrophils (Bld) [#/Vol] 5.0 10*3/uL 2.0-7.7 [facility] Neutrophils/100 WBC (Bld) 65.7 % 47-70 [facility] WBC (Bld) [#/Vol] 7.5 10*3/uL 4.4-11.0 [facility] Blood erythrocytes count (nu mber/volume)Ordered By: Renard Burgos on 05-08-2023 RBC (Bld) [#/Vol] 4.62 10*6/uL 4.6-6.2 [facility] Blood hemoglobin measurement (mass/volume)Ordered By: Renard Burgos on 05-08-2023 Hemoglobin (Bld) [Mass/Vol] 13.6 g/dL 13.0-16.5 [facility] Blood lymphocytes/100 leukoc ytesOrdered By: Renard Burgos on 05-08-2023 Lymphocytes/100 WBC (Bld) 27.4 % 19-41 [facility] Blood monocytes/100 leukocyt esOrdered By: Renard Burgos on 05-08-2023 Monocytes/100 WBC (Bld) 5.6 % 0-10 [facility] Blood platelet mean volumeOr dered By: Renard Burgos on 05-08-2023 Platelet mean volume (Bld) [Entitic vol] 11.0 fL 6.2-12.0 [facility] Determination of erythrocyte mean corpuscular volume (MCV)Ordered By: Renard Burgos on 05-08-2023 MCV (RBC) [Entitic vol] 91.8 fL 80-94 [facility] Hematocrit Auto (Bld) [Volum e fraction]Ordered By: Renard Burgos on 05-08-2023 Hematocrit (Bld) [Volume fraction] 42.4 % 40-54 [facility] Laboratory - Hematology and Cell countsOrdered By: Renard Burgos on 05-08-2023 Erythrocyte distribution width (RBC) [Entitic vol] 43.1 fL 35.1-43.9 [facility] Erythrocyte distribution width (RBC) [Ratio] 13.0 % 11.6-14.6 [facility] Immature granulocytes/100 WBC (Bld) 0.400 % 0.0-0.9 [facility] Comment on above: IG% - Immature Granu locytes (promyelocytes, myelocytes and metamyelocytes) > 1% indicates that a LEFT SHIFT is Present. MCH (RBC) [Entitic mass] 29.4 pg 27.0-32.0 [facility] Nucleated RBC/100 WBC (Bld) [Ratio] 0 % 0-5 [facility] MCHC Auto (RBC) [Mass/Vol]Or dered By: Renard Burgos on 05-08-2023 MCHC (RBC) [Mass/Vol] 32.1 g/dL 32-36 [facility] Platelets bldOrdered By: Lyubov Burgos on 05-08-2023 Platelets (Bld) [#/Vol] 226 10*3/uL 150-450 [facility] Absolute lymphocyte countOrd ered By: Renard Burgos on 04-17-2023 Lymphocytes Auto (Unsp spec) [#/Vol] 0.92 10*3/uL 0.83-4.51 [facility] Basophil percentageOrdered B y: Renard Burgos on 04-17-2023 Basophils/100 WBC (Bld) 0.1 % 0-1 [facility] Eosinophils/100 WBC (Bld) 0.0 % 0-5 [facility] Neutrophils (Bld) [#/Vol] 6.0 10*3/uL 2.0-7.7 [facility] Neutrophils/100 WBC (Bld) 81.4 % 47-70 [facility] WBC (Bld) [#/Vol] 7.4 10*3/uL 4.4-11.0 [facility] Blood erythrocytes count (nu mber/volume)Ordered By: Renard Burgos on 04-17-2023 RBC (Bld) [#/Vol] 4.59 10*6/uL 4.6-6.2 [facility] Blood hemoglobin measurement (mass/volume)Ordered By: Renard Burgos on 04-17-2023 Hemoglobin (Bld) [Mass/Vol] 13.7 g/dL 13.0-16.5 [facility] Blood lymphocytes/100 leukoc ytesOrdered By: Renard Burgos on 04-17-2023 Lymphocytes/100 WBC (Bld) 12.5 % 19-41 [facility] Blood monocytes/100 leukocyt esOrdered By: Renard Burgos on 04-17-2023 Monocytes/100 WBC (Bld) 5.6 % 0-10 [facility] Blood platelet mean volumeOr dered By: Renard Burgos on 04-17-2023 Platelet mean volume (Bld) [Entitic vol] 10.9 fL 6.2-12.0 [facility] Determination of erythrocyte mean corpuscular volume (MCV)Ordered By: Renard Burgos on 04-17-2023 MCV (RBC) [Entitic vol] 90.8 fL 80-94 [facility] Hematocrit Auto (Bld) [Volum e fraction]Ordered By: Renard Burgos on 04-17-2023 Hematocrit (Bld) [Volume fraction] 41.7 % 40-54 [facility] Laboratory - Hematology and Cell countsOrdered By: Renard Burgos on 04-17-2023 Erythrocyte distribution width (RBC) [Entitic vol] 42.3 fL 35.1-43.9 [facility] Erythrocyte distribution width (RBC) [Ratio] 12.8 % 11.6-14.6 [facility] Immature granulocytes/100 WBC (Bld) 0.400 % 0.0-0.9 [facility] Comment on above: IG% - Immature Granu locytes (promyelocytes, myelocytes and metamyelocytes) > 1% indicates that a LEFT SHIFT is Present. MCH (RBC) [Entitic mass] 29.8 pg 27.0-32.0 [facility] Nucleated RBC/100 WBC (Bld) [Ratio] 0 % 0-5 [facility] MCHC Auto (RBC) [Mass/Vol]Or dered By: Renard Burgos on 04-17-2023 MCHC (RBC) [Mass/Vol] 32.9 g/dL 32-36 [facility] Platelets bldOrdered By: Lyubov Burgos on 04-17-2023 Platelets (Bld) [#/Vol] 194 10*3/uL 150-450 [facility] Basophil percentageOrdered B y: Renard Burgos on 04-14-2023 Bilirubin [Mass/Vol] 0.30 mg/dL 0.20-1.00 [facility] Comment on above: For patients on eltr ombopag therapy, use of Dimension [place] TBIL is not recommended. Protein [Mass/Vol] 6.2 g/dL 6.4-8.2 [facility] Direct bilirubinOrdered By: Renard Burgos on 04-14-2023 Bilirubin.direct [Mass/Vol] 0.11 mg/dL 0.00-0.30 [facility] Laboratory - Chemistry and C hemistry - challengeOrdered By: Renard Burgos on 04-14-2023 ALP [Catalytic activity/Vol] 139 U/L 45-117 [facility] ALT [Catalytic activity/Vol] 23 U/L 16-61 [facility] Globulin (S) [Mass/Vol] 3.2 g/dL 2.2-4.2 [facility] Serum or plasma albumin gordy urement (mass/volume)Ordered By: Renard Burgos on 04-14-2023 Albumin [Mass/Vol] 3.0 g/dL 3.2-5.0 [facility] Thin prep Papanicolaou smear with manual screeningOrdered By: Renard Burgos on 04-14-2023 Thin prep Papanicolaou smear with manual screening 14 U/L 15-37 [facility] Absolute lymphocyte countOrd ered By: Renard Burgos on 04-10-2023 Lymphocytes Auto (Unsp spec) [#/Vol] 2.54 10*3/uL 0.83-4.51 [facility] Basophil percentageOrdered B y: Renard Burgos on 04-10-2023 Basophils/100 WBC (Bld) 0.5 % 0-1 [facility] Eosinophils/100 WBC (Bld) 0.5 % 0-5 [facility] Neutrophils (Bld) [#/Vol] 5.1 10*3/uL 2.0-7.7 [facility] Neutrophils/100 WBC (Bld) 59.0 % 47-70 [facility] WBC (Bld) [#/Vol] 8.7 10*3/uL 4.4-11.0 [facility] Blood erythrocytes count (nu mber/volume)Ordered By: Renard Burgos on 04-10-2023 RBC (Bld) [#/Vol] 4.84 10*6/uL 4.6-6.2 [facility] Blood hemoglobin measurement (mass/volume)Ordered By: Renard Burgos on 04-10-2023 Hemoglobin (Bld) [Mass/Vol] 14.2 g/dL 13.0-16.5 [facility] Blood lymphocytes/100 leukoc ytesOrdered By: Renard Burgos on 04-10-2023 Lymphocytes/100 WBC (Bld) 29.4 % 19-41 [facility] Blood monocytes/100 leukocyt esOrdered By: Renard Burgos on 04-10-2023 Monocytes/100 WBC (Bld) 10.3 % 0-10 [facility] Blood platelet mean volumeOr dered By: Renard Burgos on 04-10-2023 Platelet mean volume (Bld) [Entitic vol] 11.1 fL 6.2-12.0 [facility] Determination of erythrocyte mean corpuscular volume (MCV)Ordered By: Renard Burgos on 04-10-2023 MCV (RBC) [Entitic vol] 91.5 fL 80-94 [facility] Hematocrit Auto (Bld) [Volum e fraction]Ordered By: Renard Burgos on 04-10-2023 Hematocrit (Bld) [Volume fraction] 44.3 % 40-54 [facility] Laboratory - Hematology and Cell countsOrdered By: Renard Burgos on 04-10-2023 Erythrocyte distribution width (RBC) [Entitic vol] 41.9 fL 35.1-43.9 [facility] Erythrocyte distribution width (RBC) [Ratio] 12.6 % 11.6-14.6 [facility] Immature granulocytes/100 WBC (Bld) 0.300 % 0.0-0.9 [facility] Comment on above: IG% - Immature Granu locytes (promyelocytes, myelocytes and metamyelocytes) > 1% indicates that a LEFT SHIFT is Present. MCH (RBC) [Entitic mass] 29.3 pg 27.0-32.0 [facility] Nucleated RBC/100 WBC (Bld) [Ratio] 0 % 0-5 [facility] MCHC Auto (RBC) [Mass/Vol]Or dered By: Renard Burgos on 04-10-2023 MCHC (RBC) [Mass/Vol] 32.1 g/dL 32-36 [facility] Platelets bldOrdered By: Pet er Loretta on 04-10-2023 Platelets (Bld) [#/Vol] 216 10*3/uL 150-450 [facility] Absolute lymphocyte countOrd ered By: Renard Burgos on 04-03-2023 Lymphocytes Auto (Unsp spec) [#/Vol] 1.91 10*3/uL 0.83-4.51 [facility] Basophil percentageOrdered B y: Renard Burgos on 04-03-2023 Basophils/100 WBC (Bld) 0.5 % 0-1 [facility] Eosinophils/100 WBC (Bld) 0.5 % 0-5 [facility] Neutrophils (Bld) [#/Vol] 5.0 10*3/uL 2.0-7.7 [facility] Neutrophils/100 WBC (Bld) 66.5 % 47-70 [facility] WBC (Bld) [#/Vol] 7.6 10*3/uL 4.4-11.0 [facility] Blood erythrocytes count (nu mber/volume)Ordered By: Renard Burgos on 04-03-2023 RBC (Bld) [#/Vol] 4.62 10*6/uL 4.6-6.2 [facility] Blood hemoglobin measurement (mass/volume)Ordered By: Renard Burgos on 04-03-2023 Hemoglobin (Bld) [Mass/Vol] 13.7 g/dL 13.0-16.5 [facility] Blood lymphocytes/100 leukoc ytesOrdered By: Renard Burgos on 04-03-2023 Lymphocytes/100 WBC (Bld) 25.2 % 19-41 [facility] Blood monocytes/100 leukocyt esOrdered By: Renard Burgos on 04-03-2023 Monocytes/100 WBC (Bld) 6.9 % 0-10 [facility] Blood platelet mean volumeOr dered By: Renard Burgos on 04-03-2023 Platelet mean volume (Bld) [Entitic vol] 10.8 fL 6.2-12.0 [facility] Determination of erythrocyte mean corpuscular volume (MCV)Ordered By: Renard Burgos on 04-03-2023 MCV (RBC) [Entitic vol] 91.6 fL 80-94 [facility] Hematocrit Auto (Bld) [Volum e fraction]Ordered By: Renard Burgos on 04-03-2023 Hematocrit (Bld) [Volume fraction] 42.3 % 40-54 [facility] Laboratory - Hematology and Cell countsOrdered By: Renard Burgos on 04-03-2023 Erythrocyte distribution width (RBC) [Entitic vol] 42.6 fL 35.1-43.9 [facility] Erythrocyte distribution width (RBC) [Ratio] 12.8 % 11.6-14.6 [facility] Immature granulocytes/100 WBC (Bld) 0.400 % 0.0-0.9 [facility] Comment on above: IG% - Immature Granu locytes (promyelocytes, myelocytes and metamyelocytes) > 1% indicates that a LEFT SHIFT is Present. MCH (RBC) [Entitic mass] 29.7 pg 27.0-32.0 [facility] Nucleated RBC/100 WBC (Bld) [Ratio] 0 % 0-5 [facility] MCHC Auto (RBC) [Mass/Vol]Or dered By: Renard Burgos on 04-03-2023 MCHC (RBC) [Mass/Vol] 32.4 g/dL 32-36 [facility] Platelets bldOrdered By: Lyubov Burgos on 04-03-2023 Platelets (Bld) [#/Vol] 216 10*3/uL 150-450 [facility] Absolute lymphocyte countOrd ered By: Renard Burgos on 03-27-2023 Lymphocytes Auto (Unsp spec) [#/Vol] 2.06 10*3/uL 0.83-4.51 [facility] Basophil percentageOrdered B y: Renard Burgos on 03-27-2023 Basophils/100 WBC (Bld) 0.4 % 0-1 [facility] Eosinophils/100 WBC (Bld) 0.2 % 0-5 [facility] Neutrophils (Bld) [#/Vol] 6.3 10*3/uL 2.0-7.7 [facility] Neutrophils/100 WBC (Bld) 68.8 % 47-70 [facility] WBC (Bld) [#/Vol] 9.1 10*3/uL 4.4-11.0 [facility] Blood erythrocytes count (nu mber/volume)Ordered By: Renard Burgos on 03-27-2023 RBC (Bld) [#/Vol] 4.51 10*6/uL 4.6-6.2 [facility] Blood hemoglobin measurement (mass/volume)Ordered By: Renard Burgos on 03-27-2023 Hemoglobin (Bld) [Mass/Vol] 13.2 g/dL 13.0-16.5 [facility] Blood lymphocytes/100 leukoc ytesOrdered By: Renard Burgos on 03-27-2023 Lymphocytes/100 WBC (Bld) 22.6 % 19-41 [facility] Blood monocytes/100 leukocyt esOrdered By: Renard Burgos on 03-27-2023 Monocytes/100 WBC (Bld) 7.3 % 0-10 [facility] Blood platelet mean volumeOr dered By: Renard Burgos on 03-27-2023 Platelet mean volume (Bld) [Entitic vol] 10.8 fL 6.2-12.0 [facility] Determination of erythrocyte mean corpuscular volume (MCV)Ordered By: Renard Burgos on 03-27-2023 MCV (RBC) [Entitic vol] 91.6 fL 80-94 [facility] Hematocrit Auto (Bld) [Volum e fraction]Ordered By: Renard Burgos on 03-27-2023 Hematocrit (Bld) [Volume fraction] 41.3 % 40-54 [facility] Laboratory - Hematology and Cell countsOrdered By: Renard Burgos on 03-27-2023 Erythrocyte distribution width (RBC) [Entitic vol] 42.9 fL 35.1-43.9 [facility] Erythrocyte distribution width (RBC) [Ratio] 12.9 % 11.6-14.6 [facility] Immature granulocytes/100 WBC (Bld) 0.700 % 0.0-0.9 [facility] Comment on above: IG% - Immature Granu locytes (promyelocytes, myelocytes and metamyelocytes) > 1% indicates that a LEFT SHIFT is Present. MCH (RBC) [Entitic mass] 29.3 pg 27.0-32.0 [facility] Nucleated RBC/100 WBC (Bld) [Ratio] 0 % 0-5 [facility] MCHC Auto (RBC) [Mass/Vol]Or dered By: Renard Burgos on 03-27-2023 MCHC (RBC) [Mass/Vol] 32.0 g/dL 32-36 [facility] Platelets bldOrdered By: Lyubov Burgos on 03-27-2023 Platelets (Bld) [#/Vol] 205 10*3/uL 150-450 [facility] Absolute lymphocyte countOrd ered By: Renard Burgos on 03-20-2023 Lymphocytes Auto (Unsp spec) [#/Vol] 1.89 10*3/uL 0.83-4.51 [facility] Basophil percentageOrdered B y: Renard Burgos on 03-20-2023 Basophils/100 WBC (Bld) 0.5 % 0-1 [facility] Chloride [Moles/Vol] 107 mmol/L 98-107 [facility] Eosinophils/100 WBC (Bld) 0.4 % 0-5 [facility] Glucose [Mass/Vol] 124 mg/dL 74-106 [facility] Comment on above: Fasting Glucose resu lt from 100 to 125 mg/dL suggests IMPAIRED HOMEOSTASIS per A.D.A. criteria. Neutrophils (Bld) [#/Vol] 4.8 10*3/uL 2.0-7.7 [facility] Neutrophils/100 WBC (Bld) 64.9 % 47-70 [facility] Potassium [Moles/Vol] 3.6 mmol/L 3.5-5.1 [facility] Sodium [Moles/Vol] 142 mmol/L 136-145 [facility] WBC (Bld) [#/Vol] 7.4 10*3/uL 4.4-11.0 [facility] Blood erythrocytes count (nu mber/volume)Ordered By: Renard Burgos on 03-20-2023 RBC (Bld) [#/Vol] 4.63 10*6/uL 4.6-6.2 [facility] Blood hemoglobin measurement (mass/volume)Ordered By: Renard Burgos on 03-20-2023 Hemoglobin (Bld) [Mass/Vol] 13.7 g/dL 13.0-16.5 [facility] Blood lymphocytes/100 leukoc ytesOrdered By: Renard Burgos on 03-20-2023 Lymphocytes/100 WBC (Bld) 25.7 % 19-41 [facility] Blood monocytes/100 leukocyt esOrdered By: Renard Burgos on 03-20-2023 Monocytes/100 WBC (Bld) 8.2 % 0-10 [facility] Blood platelet mean volumeOr dered By: Renard Burgos on 03-20-2023 Platelet mean volume (Bld) [Entitic vol] 10.7 fL 6.2-12.0 [facility] Determination of erythrocyte mean corpuscular volume (MCV)Ordered By: Renard Burgos on 03-20-2023 MCV (RBC) [Entitic vol] 90.9 fL 80-94 [facility] Hematocrit Auto (Bld) [Volum e fraction]Ordered By: Renard Burgos on 03-20-2023 Hematocrit (Bld) [Volume fraction] 42.1 % 40-54 [facility] Laboratory - Chemistry and C hemistry - challengeOrdered By: Renard Burgos on 03-20-2023 CO2 [Moles/Vol] 29.0 mmol/L 21.0-32.0 [facility] Urea nitrogen/Creatinine [Mass ratio] 30.7 mg/mg - [facility] Laboratory - Hematology and Cell countsOrdered By: Renard Burgos on 03-20-2023 Erythrocyte distribution width (RBC) [Entitic vol] 43.0 fL 35.1-43.9 [facility] Erythrocyte distribution width (RBC) [Ratio] 12.9 % 11.6-14.6 [facility] Immature granulocytes/100 WBC (Bld) 0.300 % 0.0-0.9 [facility] Comment on above: IG% - Immature Granu locytes (promyelocytes, myelocytes and metamyelocytes) > 1% indicates that a LEFT SHIFT is Present. MCH (RBC) [Entitic mass] 29.6 pg 27.0-32.0 [facility] Nucleated RBC/100 WBC (Bld) [Ratio] 0 % 0-5 [facility] MCHC Auto (RBC) [Mass/Vol]Or dered By: Renard Burgos on 03-20-2023 MCHC (RBC) [Mass/Vol] 32.5 g/dL 32-36 [facility] No Panel InformationOrdered By: Renard Burgos on 03-20-2023 Estimated GFR (MDRD) Amer 178 mL/min >60 [facility] Comment on above: GFR Calc Estimated GFR (MDRD) Non-Af Amer 147 mL/min >60 [facility] Comment on above: Non- GFR Calc Platelets bldOrdered By: Lyubov Burgos on 03-20-2023 Platelets (Bld) [#/Vol] 208 10*3/uL 150-450 [facility] Serum or plasma calcium gordy urement (mass/volume)Ordered By: Renard Burgos on 03-20-2023 Calcium [Mass/Vol] 8.1 mg/dL 8.5-10.1 [facility] Serum or plasma creatinine m easurement (mass/volume)Ordered By: Renard Burgos on 03-20-2023 Creatinine [Mass/Vol] 0.59 mg/dL 0.70-1.30 [facility] Comment on above: The validity of the calculated GFR & GFRAA in patients over 70 years has not been determined. Clinical correlation is essential. Serum or plasma urea nitroge n measurement (mass/volume)Ordered By: Renard Burgos on 03-20-2023 Urea nitrogen [Mass/Vol] 18 mg/dL 7-18 [facility] Thin prep Papanicolaou smear with manual screeningOrdered By: Renard Burgos on 03-20-2023 Thin prep Papanicolaou smear with manual screening 6 5-15 [facility] Erythrocyte sedimentation ra teOrdered By: Renard Burgos on 03-16-2023 ESR (Bld) [Velocity] 3 mm/h 0-20 [facility] Absolute lymphocyte countOrd ered By: Renard Burgos on 03-13-2023 Lymphocytes Auto (Unsp spec) [#/Vol] 2.36 10*3/uL 0.83-4.51 [facility] Basophil percentageOrdered B y: Renard Burgos on 03-13-2023 Basophils/100 WBC (Bld) 0.5 % 0-1 [facility] Eosinophils/100 WBC (Bld) 0.5 % 0-5 [facility] Neutrophils (Bld) [#/Vol] 5.2 10*3/uL 2.0-7.7 [facility] Neutrophils/100 WBC (Bld) 61.3 % 47-70 [facility] WBC (Bld) [#/Vol] 8.5 10*3/uL 4.4-11.0 [facility] Blood erythrocytes count (nu mber/volume)Ordered By: Renard Burgos on 03-13-2023 RBC (Bld) [#/Vol] 4.55 10*6/uL 4.6-6.2 [facility] Blood hemoglobin measurement (mass/volume)Ordered By: Renard Burgos on 03-13-2023 Hemoglobin (Bld) [Mass/Vol] 13.4 g/dL 13.0-16.5 [facility] Blood lymphocytes/100 leukoc ytesOrdered By: Renard Burgos on 03-13-2023 Lymphocytes/100 WBC (Bld) 27.7 % 19-41 [facility] Blood monocytes/100 leukocyt esOrdered By: Renard Burgos on 03-13-2023 Monocytes/100 WBC (Bld) 9.5 % 0-10 [facility] Blood platelet mean volumeOr dered By: Renard Burgos on 03-13-2023 Platelet mean volume (Bld) [Entitic vol] 10.6 fL 6.2-12.0 [facility] Determination of erythrocyte mean corpuscular volume (MCV)Ordered By: Renard Burgos on 03-13-2023 MCV (RBC) [Entitic vol] 93.4 fL 80-94 [facility] Hematocrit Auto (Bld) [Volum e fraction]Ordered By: Renard Burgos on 03-13-2023 Hematocrit (Bld) [Volume fraction] 42.5 % 40-54 [facility] Laboratory - Hematology and Cell countsOrdered By: Renard Burgos on 03-13-2023 Erythrocyte distribution width (RBC) [Entitic vol] 44.1 fL 35.1-43.9 [facility] Erythrocyte distribution width (RBC) [Ratio] 13.0 % 11.6-14.6 [facility] Immature granulocytes/100 WBC (Bld) 0.500 % 0.0-0.9 [facility] Comment on above: IG% - Immature Granu locytes (promyelocytes, myelocytes and metamyelocytes) > 1% indicates that a LEFT SHIFT is Present. MCH (RBC) [Entitic mass] 29.5 pg 27.0-32.0 [facility] Nucleated RBC/100 WBC (Bld) [Ratio] 0 % 0-5 [facility] MCHC Auto (RBC) [Mass/Vol]Or dered By: Renard Burgos on 03-13-2023 MCHC (RBC) [Mass/Vol] 31.5 g/dL 32-36 [facility] Platelets bldOrdered By: Lyubov Burgos on 03-13-2023 Platelets (Bld) [#/Vol] 200 10*3/uL 150-450 [facility] Absolute lymphocyte countOrd ered By: Renard Burgos on 03-06-2023 Lymphocytes Auto (Unsp spec) [#/Vol] 1.80 10*3/uL 0.83-4.51 [facility] Basophil percentageOrdered B y: Renard Burgos on 03-06-2023 Basophils/100 WBC (Bld) 0.5 % 0-1 [facility] Bilirubin [Mass/Vol] 0.40 mg/dL 0.20-1.00 [facility] Comment on above: For patients on eltr ombopag therapy, use of Dimension [place] TBIL is not recommended. Chloride [Moles/Vol] 107 mmol/L 98-107 [facility] Cholesterol [Mass/Vol] 118 mg/dL <200 [facility] Comment on above: <200 mg/dL Desirable 200-240 mg/dL Borderline >240 mg/dL High Risk Eosinophils/100 WBC (Bld) 0.5 % 0-5 [facility] Glucose [Mass/Vol] 107 mg/dL 74-106 [facility] Comment on above: Fasting Glucose resu lt from 100 to 125 mg/dL suggests IMPAIRED HOMEOSTASIS per A.D.A. criteria. Neutrophils (Bld) [#/Vol] 5.5 10*3/uL 2.0-7.7 [facility] Neutrophils/100 WBC (Bld) 68.0 % 47-70 [facility] Potassium [Moles/Vol] 3.8 mmol/L 3.5-5.1 [facility] Protein [Mass/Vol] 6.3 g/dL 6.4-8.2 [facility] Sodium [Moles/Vol] 141 mmol/L 136-145 [facility] Triglyceride [Mass/Vol] 185 mg/dL <199 [facility] Comment on above: The drugs N-Acetylcy steine and Metamizole may falsely depress this assay.Serum Triglycerides Reference Interval Normal <150 mg/dL Borderline high 150 - 199 mg/dL High 200 - 499 mg/dL Very High > or = 500 mg/dL WBC (Bld) [#/Vol] 8.1 10*3/uL 4.4-11.0 [facility] Blood erythrocytes count (nu mber/volume)Ordered By: Renard Burgos on 03-06-2023 RBC (Bld) [#/Vol] 4.69 10*6/uL 4.6-6.2 [facility] Blood hemoglobin measurement (mass/volume)Ordered By: Renard Burgos on 03-06-2023 Hemoglobin (Bld) [Mass/Vol] 14.0 g/dL 13.0-16.5 [facility] Blood lymphocytes/100 leukoc ytesOrdered By: Renard Burgos on 03-06-2023 Lymphocytes/100 WBC (Bld) 22.3 % 19-41 [facility] Blood monocytes/100 leukocyt esOrdered By: Renard Burgos on 03-06-2023 Monocytes/100 WBC (Bld) 8.2 % 0-10 [facility] Blood platelet mean volumeOr dered By: Renard Burgos on 03-06-2023 Platelet mean volume (Bld) [Entitic vol] 10.9 fL 6.2-12.0 [facility] Determination of erythrocyte mean corpuscular volume (MCV)Ordered By: Renard Burgos on 03-06-2023 MCV (RBC) [Entitic vol] 91.9 fL 80-94 [facility] Hematocrit Auto (Bld) [Volum e fraction]Ordered By: Renard Burgos on 03-06-2023 Hematocrit (Bld) [Volume fraction] 43.1 % 40-54 [facility] Laboratory - Chemistry and C hemistry - challengeOrdered By: Renard Burgos on 03-06-2023 ALP [Catalytic activity/Vol] 120 U/L 45-117 [facility] ALT [Catalytic activity/Vol] 20 U/L 16-61 [facility] CO2 [Moles/Vol] 30.0 mmol/L 21.0-32.0 [facility] Globulin (S) [Mass/Vol] 3.3 g/dL 2.2-4.2 [facility] Urea nitrogen/Creatinine [Mass ratio] 27.1 mg/mg 10-20 [facility] Laboratory - Hematology and Cell countsOrdered By: Renard Burgos on 03-06-2023 Erythrocyte distribution width (RBC) [Entitic vol] 42.5 fL 35.1-43.9 [facility] Erythrocyte distribution width (RBC) [Ratio] 12.9 % 11.6-14.6 [facility] Immature granulocytes/100 WBC (Bld) 0.500 % 0.0-0.9 [facility] Comment on above: IG% - Immature Granu locytes (promyelocytes, myelocytes and metamyelocytes) > 1% indicates that a LEFT SHIFT is Present. MCH (RBC) [Entitic mass] 29.9 pg 27.0-32.0 [facility] Nucleated RBC/100 WBC (Bld) [Ratio] 0 % 0-5 [facility] MCHC Auto (RBC) [Mass/Vol]Or dered By: Renard Burgos on 03-06-2023 MCHC (RBC) [Mass/Vol] 32.5 g/dL 32-36 [facility] No Panel InformationOrdered By: Renard Burgos on 03-06-2023 Estimated GFR (MDRD) Amer 165 mL/min >60 [facility] Comment on above: GFR Calc Estimated GFR (MDRD) Non-Af Amer 136 mL/min >60 [facility] Comment on above: Non- GFR Calc Platelets bldOrdered By: Lyubov Burgos on 03-06-2023 Platelets (Bld) [#/Vol] 232 10*3/uL 150-450 [facility] Serum or plasma albumin gordy urement (mass/volume)Ordered By: Renard Burgos on 03-06-2023 Albumin [Mass/Vol] 3.0 g/dL 3.2-5.0 [facility] Serum or plasma albumin/glob ulin mass ratioOrdered By: Renard Burgos on 03-06-2023 Albumin/Globulin [Mass ratio] 0.9 {ratio} 0.9-2.4 [facility] Serum or plasma calcium gordy urement (mass/volume)Ordered By: Renard Burgos on 03-06-2023 Calcium [Mass/Vol] 8.2 mg/dL 8.5-10.1 [facility] Serum or plasma cholesterol in HDL measurement (mass/volume)Ordered By: Renard Burgos on 03-06-2023 Cholesterol in HDL [Mass/Vol] 25 mg/dL >40 [facility] Comment on above: The drugs N-Acetylcy steine and Metamizole may falsely depress this assay. Reference Range HDL <40 mg/dL Low HDL Cholesterol HDL >or= 60 mg/dL High HDL Cholesterol Serum or plasma cholesterol in VLDL measurement (mass/volume)Ordered By: Renard Burgos on 03-06-2023 Cholesterol in VLDL [Mass/Vol] 37 mg/dL 5-40 [facility] Serum or plasma creatinine m easurement (mass/volume)Ordered By: Renard Burgos on 03-06-2023 Creatinine [Mass/Vol] 0.63 mg/dL 0.70-1.30 [facility] Comment on above: The validity of the calculated GFR & GFRAA in patients over 70 years has not been determined. Clinical correlation is essential. Serum or plasma low density lipoprotein (LDL) cholesterol measurement (mass/volume)Ordered By: Renard Burgos on 03-06-2023 Cholesterol in LDL [Mass/Vol] 56 mg/dL 0-130 [facility] Serum or plasma urea nitroge n measurement (mass/volume)Ordered By: Renard Burgos on 03-06-2023 Urea nitrogen [Mass/Vol] 17 mg/dL 7-18 [facility] Thin prep Papanicolaou smear with manual screeningOrdered By: Renard Burgos on 03-06-2023 Thin prep Papanicolaou smear with manual screening 10 U/L 15-37 [facility] Thin prep Papanicolaou smear with manual screening 4 5-15 [facility] Absolute lymphocyte countOrd ered By: Renard Burgos on 02-27-2023 Lymphocytes Auto (Unsp spec) [#/Vol] 2.13 10*3/uL 0.83-4.51 [facility] Basophil percentageOrdered B y: Renard Burgos on 02-27-2023 Basophils/100 WBC (Bld) 0.6 % 0-1 [facility] Eosinophils/100 WBC (Bld) 0.6 % 0-5 [facility] Neutrophils (Bld) [#/Vol] 5.1 10*3/uL 2.0-7.7 [facility] Neutrophils/100 WBC (Bld) 63.3 % 47-70 [facility] WBC (Bld) [#/Vol] 8.1 10*3/uL 4.4-11.0 [facility] Blood erythrocytes count (nu mber/volume)Ordered By: Renard Burgos on 02-27-2023 RBC (Bld) [#/Vol] 4.54 10*6/uL 4.6-6.2 [facility] Blood hemoglobin measurement (mass/volume)Ordered By: Renard Burgos on 02-27-2023 Hemoglobin (Bld) [Mass/Vol] 13.7 g/dL 13.0-16.5 [facility] Blood lymphocytes/100 leukoc ytesOrdered By: Renard Burgos on 02-27-2023 Lymphocytes/100 WBC (Bld) 26.4 % 19-41 [facility] Blood monocytes/100 leukocyt esOrdered By: Renard Burgos on 02-27-2023 Monocytes/100 WBC (Bld) 8.7 % 0-10 [facility] Blood platelet mean volumeOr dered By: Renard Burgos on 02-27-2023 Platelet mean volume (Bld) [Entitic vol] 10.8 fL 6.2-12.0 [facility] Determination of erythrocyte mean corpuscular volume (MCV)Ordered By: Renard Burgos on 02-27-2023 MCV (RBC) [Entitic vol] 89.9 fL 80-94 [facility] Hematocrit Auto (Bld) [Volum e fraction]Ordered By: Renard Burgos on 02-27-2023 Hematocrit (Bld) [Volume fraction] 40.8 % 40-54 [facility] Laboratory - Hematology and Cell countsOrdered By: Renard Burgos on 02-27-2023 Erythrocyte distribution width (RBC) [Entitic vol] 41.0 fL 35.1-43.9 [facility] Erythrocyte distribution width (RBC) [Ratio] 12.5 % 11.6-14.6 [facility] Immature granulocytes/100 WBC (Bld) 0.400 % 0.0-0.9 [facility] Comment on above: IG% - Immature Granu locytes (promyelocytes, myelocytes and metamyelocytes) > 1% indicates that a LEFT SHIFT is Present. MCH (RBC) [Entitic mass] 30.2 pg 27.0-32.0 [facility] Nucleated RBC/100 WBC (Bld) [Ratio] 0 % 0-5 [facility] MCHC Auto (RBC) [Mass/Vol]Or dered By: Renard Burgos on 02-27-2023 MCHC (RBC) [Mass/Vol] 33.6 g/dL 32-36 [facility] Platelets bldOrdered By: Lyubov Burgos on 02-27-2023 Platelets (Bld) [#/Vol] 182 10*3/uL 150-450 [facility] Absolute lymphocyte countOrd ered By: Renard Burgos on 02-20-2023 Lymphocytes Auto (Unsp spec) [#/Vol] 2.23 10*3/uL 0.83-4.51 [facility] Basophil percentageOrdered B y: Renard Burgos on 02-20-2023 Basophils/100 WBC (Bld) 0.3 % 0-1 [facility] Eosinophils/100 WBC (Bld) 0.7 % 0-5 [facility] Neutrophils (Bld) [#/Vol] 5.9 10*3/uL 2.0-7.7 [facility] Neutrophils/100 WBC (Bld) 65.7 % 47-70 [facility] WBC (Bld) [#/Vol] 9.0 10*3/uL 4.4-11.0 [facility] Blood erythrocytes count (nu mber/volume)Ordered By: Renard Burgos on 02-20-2023 RBC (Bld) [#/Vol] 4.46 10*6/uL 4.6-6.2 [facility] Blood hemoglobin measurement (mass/volume)Ordered By: Renard Burgos on 02-20-2023 Hemoglobin (Bld) [Mass/Vol] 13.3 g/dL 13.0-16.5 [facility] Blood lymphocytes/100 leukoc ytesOrdered By: Renard Burgos on 02-20-2023 Lymphocytes/100 WBC (Bld) 24.7 % 19-41 [facility] Blood monocytes/100 leukocyt esOrdered By: Renard Burgos on 02-20-2023 Monocytes/100 WBC (Bld) 8.0 % 0-10 [facility] Blood platelet mean volumeOr dered By: Renard Burgos on 02-20-2023 Platelet mean volume (Bld) [Entitic vol] 10.7 fL 6.2-12.0 [facility] Determination of erythrocyte mean corpuscular volume (MCV)Ordered By: Renard Burgos on 02-20-2023 MCV (RBC) [Entitic vol] 90.6 fL 80-94 [facility] Hematocrit Auto (Bld) [Volum e fraction]Ordered By: Renard Burgos on 02-20-2023 Hematocrit (Bld) [Volume fraction] 40.4 % 40-54 [facility] Laboratory - Hematology and Cell countsOrdered By: Renard Burgos on 02-20-2023 Erythrocyte distribution width (RBC) [Entitic vol] 41.9 fL 35.1-43.9 [facility] Erythrocyte distribution width (RBC) [Ratio] 12.8 % 11.6-14.6 [facility] Immature granulocytes/100 WBC (Bld) 0.600 % 0.0-0.9 [facility] Comment on above: IG% - Immature Granu locytes (promyelocytes, myelocytes and metamyelocytes) > 1% indicates that a LEFT SHIFT is Present. MCH (RBC) [Entitic mass] 29.8 pg 27.0-32.0 [facility] Nucleated RBC/100 WBC (Bld) [Ratio] 0 % 0-5 [facility] MCHC Auto (RBC) [Mass/Vol]Or dered By: Renard Burgos on 02-20-2023 MCHC (RBC) [Mass/Vol] 32.9 g/dL 32-36 [facility] Platelets bldOrdered By: Pet er Loretta on 02-20-2023 Platelets (Bld) [#/Vol] 220 10*3/uL 150-450 [facility] Absolute lymphocyte countOrd ered By: Renard Burgos on 02-13-2023 Lymphocytes Auto (Unsp spec) [#/Vol] 2.01 10*3/uL 0.83-4.51 [facility] Basophil percentageOrdered B y: Renard Burgos on 02-13-2023 Basophils/100 WBC (Bld) 0.7 % 0-1 [facility] Eosinophils/100 WBC (Bld) 0.5 % 0-5 [facility] Neutrophils (Bld) [#/Vol] 4.7 10*3/uL 2.0-7.7 [facility] Neutrophils/100 WBC (Bld) 63.3 % 47-70 [facility] WBC (Bld) [#/Vol] 7.4 10*3/uL 4.4-11.0 [facility] Blood erythrocytes count (nu mber/volume)Ordered By: Renard Burgos on 02-13-2023 RBC (Bld) [#/Vol] 4.46 10*6/uL 4.6-6.2 [facility] Blood hemoglobin measurement (mass/volume)Ordered By: Renard Burgos on 02-13-2023 Hemoglobin (Bld) [Mass/Vol] 13.6 g/dL 13.0-16.5 [facility] Blood lymphocytes/100 leukoc ytesOrdered By: Renard Burgos on 02-13-2023 Lymphocytes/100 WBC (Bld) 27.0 % 19-41 [facility] Blood monocytes/100 leukocyt esOrdered By: Renard Burgos on 02-13-2023 Monocytes/100 WBC (Bld) 8.1 % 0-10 [facility] Blood platelet mean volumeOr dered By: Renard Burgos on 02-13-2023 Platelet mean volume (Bld) [Entitic vol] 10.7 fL 6.2-12.0 [facility] Determination of erythrocyte mean corpuscular volume (MCV)Ordered By: Renard Burgos on 02-13-2023 MCV (RBC) [Entitic vol] 92.6 fL 80-94 [facility] Hematocrit Auto (Bld) [Volum e fraction]Ordered By: Renard Burgos on 02-13-2023 Hematocrit (Bld) [Volume fraction] 41.3 % 40-54 [facility] Laboratory - Hematology and Cell countsOrdered By: Renard Burgos on 02-13-2023 Erythrocyte distribution width (RBC) [Entitic vol] 42.7 fL 35.1-43.9 [facility] Erythrocyte distribution width (RBC) [Ratio] 12.6 % 11.6-14.6 [facility] Immature granulocytes/100 WBC (Bld) 0.400 % 0.0-0.9 [facility] Comment on above: IG% - Immature Granu locytes (promyelocytes, myelocytes and metamyelocytes) > 1% indicates that a LEFT SHIFT is Present. MCH (RBC) [Entitic mass] 30.5 pg 27.0-32.0 [facility] Nucleated RBC/100 WBC (Bld) [Ratio] 0 % 0-5 [facility] MCHC Auto (RBC) [Mass/Vol]Or dered By: Renard Burgos on 02-13-2023 MCHC (RBC) [Mass/Vol] 32.9 g/dL 32-36 [facility] Platelets bldOrdered By: Lyubov Burgos on 02-13-2023 Platelets (Bld) [#/Vol] 187 10*3/uL 150-450 [facility] Absolute lymphocyte countOrd ered By: Renard Burgos on 02-06-2023 Lymphocytes Auto (Unsp spec) [#/Vol] 2.28 10*3/uL 0.83-4.51 [facility] Basophil percentageOrdered B y: Renard Burgos on 02-06-2023 Basophils/100 WBC (Bld) 0.5 % 0-1 [facility] Eosinophils/100 WBC (Bld) 0.7 % 0-5 [facility] Neutrophils (Bld) [#/Vol] 5.5 10*3/uL 2.0-7.7 [facility] Neutrophils/100 WBC (Bld) 63.7 % 47-70 [facility] WBC (Bld) [#/Vol] 8.6 10*3/uL 4.4-11.0 [facility] Blood erythrocytes count (nu mber/volume)Ordered By: Renard Burgos on 02-06-2023 RBC (Bld) [#/Vol] 4.71 10*6/uL 4.6-6.2 [facility] Blood hemoglobin measurement (mass/volume)Ordered By: Renard Burgos on 02-06-2023 Hemoglobin (Bld) [Mass/Vol] 14.1 g/dL 13.0-16.5 [facility] Blood lymphocytes/100 leukoc ytesOrdered By: Renard Burgos on 02-06-2023 Lymphocytes/100 WBC (Bld) 26.4 % 19-41 [facility] Blood monocytes/100 leukocyt esOrdered By: Renard Burgos on 02-06-2023 Monocytes/100 WBC (Bld) 8.2 % 0-10 [facility] Blood platelet mean volumeOr dered By: Renard Burgos on 02-06-2023 Platelet mean volume (Bld) [Entitic vol] 11.0 fL 6.2-12.0 [facility] Determination of erythrocyte mean corpuscular volume (MCV)Ordered By: Renard Burgos on 02-06-2023 MCV (RBC) [Entitic vol] 94.5 fL 80-94 [facility] Hematocrit Auto (Bld) [Volum e fraction]Ordered By: Renard Burgos on 02-06-2023 Hematocrit (Bld) [Volume fraction] 44.5 % 40-54 [facility] Laboratory - Hematology and Cell countsOrdered By: Renard Burgos on 02-06-2023 Erythrocyte distribution width (RBC) [Entitic vol] 43.5 fL 35.1-43.9 [facility] Erythrocyte distribution width (RBC) [Ratio] 12.7 % 11.6-14.6 [facility] Immature granulocytes/100 WBC (Bld) 0.500 % 0.0-0.9 [facility] Comment on above: IG% - Immature Granu locytes (promyelocytes, myelocytes and metamyelocytes) > 1% indicates that a LEFT SHIFT is Present. MCH (RBC) [Entitic mass] 29.9 pg 27.0-32.0 [facility] Nucleated RBC/100 WBC (Bld) [Ratio] 0 % 0-5 [facility] MCHC Auto (RBC) [Mass/Vol]Or dered By: Renard Burgos on 02-06-2023 MCHC (RBC) [Mass/Vol] 31.7 g/dL 32-36 [facility] Platelets bldOrdered By: Lyubov Burgos on 02-06-2023 Platelets (Bld) [#/Vol] 196 10*3/uL 150-450 [facility] Absolute lymphocyte countOrd ered By: Renard Burgos on 01-30-2023 Lymphocytes Auto (Unsp spec) [#/Vol] 1.91 10*3/uL 0.83-4.51 [facility] Basophil percentageOrdered B y: Renard Burgos on 01-30-2023 Basophils/100 WBC (Bld) 0.5 % 0-1 [facility] Eosinophils/100 WBC (Bld) 0.5 % 0-5 [facility] Neutrophils (Bld) [#/Vol] 6.0 10*3/uL 2.0-7.7 [facility] Neutrophils/100 WBC (Bld) 69.4 % 47-70 [facility] WBC (Bld) [#/Vol] 8.7 10*3/uL 4.4-11.0 [facility] Basophil percentage 0 SEEN /hpf 0-5 [facility] Bilirubin Test strip Ql (U)O rdered By: Renard Burgos on 01-30-2023 Bilirubin Ql (U) Negative Negative [facility] Blood erythrocytes count (nu mber/volume)Ordered By: Renard Burgos on 01-30-2023 RBC (Bld) [#/Vol] 4.50 10*6/uL 4.6-6.2 [facility] Blood hemoglobin measurement (mass/volume)Ordered By: Renard Burgos on 01-30-2023 Hemoglobin (Bld) [Mass/Vol] 13.5 g/dL 13.0-16.5 [facility] Blood lymphocytes/100 leukoc ytesOrdered By: Renard Burgos on 01-30-2023 Lymphocytes/100 WBC (Bld) 22.1 % 19-41 [facility] Blood monocytes/100 leukocyt esOrdered By: Renard Burgos on 01-30-2023 Monocytes/100 WBC (Bld) 7.2 % 0-10 [facility] Blood platelet mean volumeOr dered By: Renard Burgos on 01-30-2023 Platelet mean volume (Bld) [Entitic vol] 11.1 fL 6.2-12.0 [facility] Culture, urineOrdered By: Garrick Bhatt on 01-30-2023 Bacteria identified Cx Nom (U) Positive [facility] Determination of erythrocyte mean corpuscular volume (MCV)Ordered By: Renard Burgos on 01-30-2023 MCV (RBC) [Entitic vol] 91.3 fL 80-94 [facility] Hematocrit Auto (Bld) [Volum e fraction]Ordered By: Renard Burgos on 01-30-2023 Hematocrit (Bld) [Volume fraction] 41.1 % 40-54 [facility] Ketones Test strip Ql (U)Ord ered By: Renard Burgos on 01-30-2023 Ketones Ql (U) Negative Negative [facility] Laboratory - Hematology and Cell countsOrdered By: Renard Burgos on 01-30-2023 Erythrocyte distribution width (RBC) [Entitic vol] 41.4 fL 35.1-43.9 [facility] Erythrocyte distribution width (RBC) [Ratio] 12.6 % 11.6-14.6 [facility] Immature granulocytes/100 WBC (Bld) 0.300 % 0.0-0.9 [facility] Comment on above: IG% - Immature Granu locytes (promyelocytes, myelocytes and metamyelocytes) > 1% indicates that a LEFT SHIFT is Present. MCH (RBC) [Entitic mass] 30.0 pg 27.0-32.0 [facility] Nucleated RBC/100 WBC (Bld) [Ratio] 0 % 0-5 [facility] MCHC Auto (RBC) [Mass/Vol]Or dered By: Renard Burgos on 01-30-2023 MCHC (RBC) [Mass/Vol] 32.8 g/dL 32-36 [facility] Mucus LM Ql (Urine sed)Order ed By: Renard Burgos on 01-30-2023 Mucus Ql (Urine sed) 0 SEEN /hpf [facility] Nitrite Test strip Ql (U)Ord ered By: Renard Burgos on 01-30-2023 Nitrite Ql (U) Negative Negative [facility] No Panel InformationOrdered By: Renard Burgos on 01-30-2023 Prostate Specific Antigen Screen 4.18 ng/mL 0.00-4.00 [facility] Comment on above: This test was perfor med using the TPSA assay method for [employer] chemistry system. Values obtained with differentassay methods cannot be used interchangably.When changing PSA assays in the course of monitoring apatient, additional sequential testing should be carriedout to confirm baseline values. Platelets bldOrdered By: Lyubov Burgos on 01-30-2023 Platelets (Bld) [#/Vol] 205 10*3/uL 150-450 [facility] Protein Test strip Ql (U)Ord ered By: Renard Burgos on 01-30-2023 Protein Ql (U) Negative Negative [facility] Squamous epithelial cells de tection in urine sediment by light microscopyOrdered By: Renard Burgos on 01-30-2023 Epithelial cells.squamous LM Ql (Urine sed) 0-5 SEEN /hpf 0-5 [facility] Urine blood detectionOrdered By: Renard Burgos on 01-30-2023 RBC Ql (U) Negative Negative [facility] RBC Ql (U) 0 SEEN /hpf 0-5 [facility] Urine clarityOrdered By: Lyubov Burgos on 01-30-2023 Clarity (U) Clear Clear [facility] Urine color determinationOrd ered By: Renard Burgos on 01-30-2023 Color (U) Yellow Yellow [facility] Urine glucose detectionOrder ed By: Renard Burgos on 01-30-2023 Glucose Ql (U) Normal mg/dl Normal [facility] Urine leukocyte esterase det ection by dipstickOrdered By: Renard Burgos on 01-30-2023 Leukocyte esterase Test strip Ql (U) Negative Negative [facility] Urine pHOrdered By: Renard ocampo on 01-30-2023 pH (U) 8.0 [pH] 5.0 - 8.0 [facility] Urine sediment bacteria coun t by microscopy (number/high power field)Ordered By: Renard Burgos on 01-30-2023 Bacteria LM.HPF (Urine sed) [#/Area] 0 /[HPF] None Seen [facility] Urine specific gravity measu rementOrdered By: Renard Burgos on 01-30-2023 Specific gravity (U) [Rel density] 1.010 1.002-1.030 [facility] Urobilinogen Auto test strip Ql (U)Ordered By: Renard Burgos on 01-30-2023 Urobilinogen Ql (U) Normal mg/dl Normal [facility] Absolute lymphocyte countOrd ered By: Renard Burgos on 01-23-2023 Lymphocytes Auto (Unsp spec) [#/Vol] 2.32 10*3/uL 0.83-4.51 [facility] Basophil percentageOrdered B y: Renard Burgos on 01-23-2023 Basophils/100 WBC (Bld) 0.6 % 0-1 [facility] Eosinophils/100 WBC (Bld) 0.4 % 0-5 [facility] Neutrophils (Bld) [#/Vol] 5.3 10*3/uL 2.0-7.7 [facility] Neutrophils/100 WBC (Bld) 62.7 % 47-70 [facility] WBC (Bld) [#/Vol] 8.4 10*3/uL 4.4-11.0 [facility] Blood erythrocytes count (nu mber/volume)Ordered By: Renard Burgos on 01-23-2023 RBC (Bld) [#/Vol] 4.49 10*6/uL 4.6-6.2 [facility] Blood hemoglobin measurement (mass/volume)Ordered By: Renard Burgos on 01-23-2023 Hemoglobin (Bld) [Mass/Vol] 13.6 g/dL 13.0-16.5 [facility] Blood lymphocytes/100 leukoc ytesOrdered By: Renard Burgos on 01-23-2023 Lymphocytes/100 WBC (Bld) 27.5 % 19-41 [facility] Blood monocytes/100 leukocyt esOrdered By: Renard Burgos on 01-23-2023 Monocytes/100 WBC (Bld) 8.2 % 0-10 [facility] Blood platelet mean volumeOr dered By: Renard Burgos on 01-23-2023 Platelet mean volume (Bld) [Entitic vol] 10.9 fL 6.2-12.0 [facility] Determination of erythrocyte mean corpuscular volume (MCV)Ordered By: Renard Burgos on 01-23-2023 MCV (RBC) [Entitic vol] 93.1 fL 80-94 [facility] Hematocrit Auto (Bld) [Volum e fraction]Ordered By: Renard Burgos on 01-23-2023 Hematocrit (Bld) [Volume fraction] 41.8 % 40-54 [facility] Laboratory - Hematology and Cell countsOrdered By: Renard Burgos on 01-23-2023 Erythrocyte distribution width (RBC) [Entitic vol] 42.7 fL 35.1-43.9 [facility] Erythrocyte distribution width (RBC) [Ratio] 12.6 % 11.6-14.6 [facility] Immature granulocytes/100 WBC (Bld) 0.600 % 0.0-0.9 [facility] Comment on above: IG% - Immature Granu locytes (promyelocytes, myelocytes and metamyelocytes) > 1% indicates that a LEFT SHIFT is Present. MCH (RBC) [Entitic mass] 30.3 pg 27.0-32.0 [facility] Nucleated RBC/100 WBC (Bld) [Ratio] 0 % 0-5 [facility] MCHC Auto (RBC) [Mass/Vol]Or dered By: Renard Burgos on 01-23-2023 MCHC (RBC) [Mass/Vol] 32.5 g/dL 32-36 [facility] Platelets bldOrdered By: Pet shirley Burgos on 01-23-2023 Platelets (Bld) [#/Vol] 220 10*3/uL 150-450 [facility] Absolute lymphocyte countOrd ered By: Renard Burgos on 01-16-2023 Lymphocytes Auto (Unsp spec) [#/Vol] 1.80 10*3/uL 0.83-4.51 [facility] Basophil percentageOrdered B y: Renard Burgos on 01-16-2023 Basophils/100 WBC (Bld) 0.4 % 0-1 [facility] Eosinophils/100 WBC (Bld) 0.4 % 0-5 [facility] Neutrophils (Bld) [#/Vol] 7.2 10*3/uL 2.0-7.7 [facility] Neutrophils/100 WBC (Bld) 73.5 % 47-70 [facility] WBC (Bld) [#/Vol] 9.8 10*3/uL 4.4-11.0 [facility] Blood erythrocytes count (nu mber/volume)Ordered By: Renard Burgos on 01-16-2023 RBC (Bld) [#/Vol] 4.77 10*6/uL 4.6-6.2 [facility] Blood hemoglobin measurement (mass/volume)Ordered By: Renard Burgos on 01-16-2023 Hemoglobin (Bld) [Mass/Vol] 14.1 g/dL 13.0-16.5 [facility] Blood lymphocytes/100 leukoc ytesOrdered By: Renard Burgos on 01-16-2023 Lymphocytes/100 WBC (Bld) 18.4 % 19-41 [facility] Blood monocytes/100 leukocyt esOrdered By: Renard Burgos on 01-16-2023 Monocytes/100 WBC (Bld) 6.9 % 0-10 [facility] Blood platelet mean volumeOr dered By: Renard Burgos on 01-16-2023 Platelet mean volume (Bld) [Entitic vol] 10.6 fL 6.2-12.0 [facility] Determination of erythrocyte mean corpuscular volume (MCV)Ordered By: Renard Burgos on 01-16-2023 MCV (RBC) [Entitic vol] 92.5 fL 80-94 [facility] Hematocrit Auto (Bld) [Volum e fraction]Ordered By: Renard Burgos on 01-16-2023 Hematocrit (Bld) [Volume fraction] 44.1 % 40-54 [facility] Laboratory - Hematology and Cell countsOrdered By: Renard Burgos on 01-16-2023 Erythrocyte distribution width (RBC) [Entitic vol] 41.8 fL 35.1-43.9 [facility] Erythrocyte distribution width (RBC) [Ratio] 12.4 % 11.6-14.6 [facility] Immature granulocytes/100 WBC (Bld) 0.400 % 0.0-0.9 [facility] Comment on above: IG% - Immature Granu locytes (promyelocytes, myelocytes and metamyelocytes) > 1% indicates that a LEFT SHIFT is Present. MCH (RBC) [Entitic mass] 29.6 pg 27.0-32.0 [facility] Nucleated RBC/100 WBC (Bld) [Ratio] 0 % 0-5 [facility] MCHC Auto (RBC) [Mass/Vol]Or dered By: Renard Burgos on 01-16-2023 MCHC (RBC) [Mass/Vol] 32.0 g/dL 32-36 [facility] Platelets bldOrdered By: Lyubov Burgos on 01-16-2023 Platelets (Bld) [#/Vol] 221 10*3/uL 150-450 [facility] Absolute lymphocyte countOrd ered By: Renard Burgos on 01-09-2023 Lymphocytes Auto (Unsp spec) [#/Vol] 2.41 10*3/uL 0.83-4.51 [facility] Basophil percentageOrdered B y: Renard Burgos on 01-09-2023 Basophils/100 WBC (Bld) 0.7 % 0-1 [facility] Eosinophils/100 WBC (Bld) 0.8 % 0-5 [facility] Neutrophils (Bld) [#/Vol] 5.4 10*3/uL 2.0-7.7 [facility] Neutrophils/100 WBC (Bld) 60.5 % 47-70 [facility] WBC (Bld) [#/Vol] 8.9 10*3/uL 4.4-11.0 [facility] Blood erythrocytes count (nu mber/volume)Ordered By: Renard Burgos on 09-11-2023 RBC (Bld) [#/Vol] 4.56 10*6/uL 4.6-6.2 [facility] Blood hemoglobin measurement (mass/volume)Ordered By: Renard Burgos on 01-09-2023 Hemoglobin (Bld) [Mass/Vol] 13.8 g/dL 13.0-16.5 [facility] System Blood lymphocytes/100 leukoc ytesOrdered By: Renard Burgos on 01-09-2023 Lymphocytes/100 WBC (Bld) 27.0 % 19-41 [facility] Blood monocytes/100 leukocyt esOrdered By: Renard Burgos on 01-09-2023 Monocytes/100 WBC (Bld) 10.7 % 0-10 [facility] Blood platelet mean volumeOr dered By: Renard Burgos on 01-09-2023 Platelet mean volume (Bld) [Entitic vol] 10.8 fL 6.2-12.0 [facility] Determination of erythrocyte mean corpuscular volume (MCV)Ordered By: Renard Burgos on 01-09-2023 MCV (RBC) [Entitic vol] 92.5 fL 80-94 [facility] Hematocrit Auto (Bld) [Volum e fraction]Ordered By: Renard Burgos on 01-09-2023 Hematocrit (Bld) [Volume fraction] 42.2 % 40-54 [facility] Laboratory - Hematology and Cell countsOrdered By: Renard Burgos on 01-09-2023 Erythrocyte distribution width (RBC) [Entitic vol] 42.7 fL 35.1-43.9 [facility] Erythrocyte distribution width (RBC) [Ratio] 12.5 % 11.6-14.6 [facility] Immature granulocytes/100 WBC (Bld) 0.300 % 0.0-0.9 [facility] Comment on above: IG% - Immature Granu locytes (promyelocytes, myelocytes and metamyelocytes) > 1% indicates that a LEFT SHIFT is Present. MCH (RBC) [Entitic mass] 30.3 pg 27.0-32.0 [facility] Nucleated RBC/100 WBC (Bld) [Ratio] 0 % 0-5 [facility] MCHC Auto (RBC) [Mass/Vol]Or dered By: Renard Burgos on 01-09-2023 MCHC (RBC) [Mass/Vol] 32.7 g/dL 32-36 [facility] Platelets bldOrdered By: Lyubov shirley Loretta on 01-09-2023 Platelets (Bld) [#/Vol] 209 10*3/uL 150-450 [facility] Absolute lymphocyte countOrd ered By: Renard Burgos on 01-03-2023 Lymphocytes Auto (Unsp spec) [#/Vol] 2.18 10*3/uL 0.83-4.51 [facility] Basophil percentageOrdered B y: Renard Burgos on 01-03-2023 Basophils/100 WBC (Bld) 0.6 % 0-1 [facility] Eosinophils/100 WBC (Bld) 0.5 % 0-5 [facility] Neutrophils (Bld) [#/Vol] 5.4 10*3/uL 2.0-7.7 [facility] Neutrophils/100 WBC (Bld) 64.2 % 47-70 [facility] WBC (Bld) [#/Vol] 8.4 10*3/uL 4.4-11.0 [facility] Blood erythrocytes count (nu mber/volume)Ordered By: Renard Burgos on 01-03-2023 RBC (Bld) [#/Vol] 4.59 10*6/uL 4.6-6.2 [facility] Blood hemoglobin measurement (mass/volume)Ordered By: Renard Burgos on 01-03-2023 Hemoglobin (Bld) [Mass/Vol] 13.9 g/dL 13.0-16.5 [facility] Blood lymphocytes/100 leukoc ytesOrdered By: Renard Burgos on 01-03-2023 Lymphocytes/100 WBC (Bld) 25.9 % 19-41 [facility] Blood monocytes/100 leukocyt esOrdered By: Renard Burgos on 01-03-2023 Monocytes/100 WBC (Bld) 8.3 % 0-10 [facility] Blood platelet mean volumeOr dered By: Renard Burgos on 01-03-2023 Platelet mean volume (Bld) [Entitic vol] 11.0 fL 6.2-12.0 [facility] Determination of erythrocyte mean corpuscular volume (MCV)Ordered By: Renard Burgos on 01-03-2023 MCV (RBC) [Entitic vol] 92.8 fL 80-94 [facility] Hematocrit Auto (Bld) [Volum e fraction]Ordered By: Renard Burgos on 01-03-2023 Hematocrit (Bld) [Volume fraction] 42.6 % 40-54 [facility] Laboratory - Hematology and Cell countsOrdered By: Renard Burgos on 01-03-2023 Erythrocyte distribution width (RBC) [Entitic vol] 42.5 fL 35.1-43.9 [facility] Erythrocyte distribution width (RBC) [Ratio] 12.6 % 11.6-14.6 [facility] Immature granulocytes/100 WBC (Bld) 0.500 % 0.0-0.9 [facility] Comment on above: IG% - Immature Granu locytes (promyelocytes, myelocytes and metamyelocytes) > 1% indicates that a LEFT SHIFT is Present. MCH (RBC) [Entitic mass] 30.3 pg 27.0-32.0 [facility] Nucleated RBC/100 WBC (Bld) [Ratio] 0 % 0-5 [facility] MCHC Auto (RBC) [Mass/Vol]Or dered By: Renard Burgos on 01-03-2023 MCHC (RBC) [Mass/Vol] 32.6 g/dL 32-36 [facility] No Panel InformationOrdered By: Renard Burgos on 01-03-2023 Prostate Specific Antigen Screen 3.37 ng/mL 0.00-4.00 [facility] Comment on above: This test was perfor med using the TPSA assay method [facility] the[facility]. Values obtained with differentassay methods cannot be used interchangably.When changing PSA assays in the course of monitoring apatient, additional sequential testing should be carriedout to confirm baseline values. Platelets bldOrdered By: Lyubov Burgos on 01-03-2023 Platelets (Bld) [#/Vol] 200 10*3/uL 150-450 [facility] Absolute lymphocyte countOrd ered By: Renard Burgos on 12-26-2022 Lymphocytes Auto (Unsp spec) [#/Vol] 1.80 10*3/uL 0.83-4.51 [facility] Basophil percentageOrdered B y: Renard Burgos on 12-26-2022 Basophils/100 WBC (Bld) 0.4 % 0-1 [facility] Eosinophils/100 WBC (Bld) 0.6 % 0-5 [facility] Neutrophils (Bld) [#/Vol] 6.2 10*3/uL 2.0-7.7 [facility] Neutrophils/100 WBC (Bld) 69.8 % 47-70 [facility] WBC (Bld) [#/Vol] 8.9 10*3/uL 4.4-11.0 [facility] Blood erythrocytes count (nu mber/volume)Ordered By: Renard Burgos on 12-26-2022 RBC (Bld) [#/Vol] 4.58 10*6/uL 4.6-6.2 [facility] Blood hemoglobin measurement (mass/volume)Ordered By: Renard Burgos on 12-26-2022 Hemoglobin (Bld) [Mass/Vol] 14.0 g/dL 13.0-16.5 [facility] Blood lymphocytes/100 leukoc ytesOrdered By: Renard Burgos on 12-26-2022 Lymphocytes/100 WBC (Bld) 20.2 % 19-41 [facility] Blood monocytes/100 leukocyt esOrdered By: Renard Burgos on 12-26-2022 Monocytes/100 WBC (Bld) 8.6 % 0-10 [facility] Blood platelet mean volumeOr dered By: Renard Burgos on 12-26-2022 Platelet mean volume (Bld) [Entitic vol] 10.8 fL 6.2-12.0 [facility] Determination of erythrocyte mean corpuscular volume (MCV)Ordered By: Renard Burgos on 12-26-2022 MCV (RBC) [Entitic vol] 93.2 fL 80-94 [facility] Hematocrit Auto (Bld) [Volum e fraction]Ordered By: Renard Burgos on 12-26-2022 Hematocrit (Bld) [Volume fraction] 42.7 % 40-54 [facility] Laboratory - Hematology and Cell countsOrdered By: Renard Burgos on 12-26-2022 Erythrocyte distribution width (RBC) [Entitic vol] 42.5 fL 35.1-43.9 [facility] Erythrocyte distribution width (RBC) [Ratio] 12.5 % 11.6-14.6 [facility] Immature granulocytes/100 WBC (Bld) 0.400 % 0.0-0.9 [facility] Comment on above: IG% - Immature Granu locytes (promyelocytes, myelocytes and metamyelocytes) > 1% indicates that a LEFT SHIFT is Present. MCH (RBC) [Entitic mass] 30.6 pg 27.0-32.0 [facility] Nucleated RBC/100 WBC (Bld) [Ratio] 0 % 0-5 [facility] MCHC Auto (RBC) [Mass/Vol]Or dered By: Renard Burgos on 12-26-2022 MCHC (RBC) [Mass/Vol] 32.8 g/dL 32-36 [facility] Platelets bldOrdered By: Pet shirley Burgos on 12-26-2022 Platelets (Bld) [#/Vol] 200 10*3/uL 150-450 [facility] Absolute lymphocyte countOrd ered By: Renard Burgos on 12-19-2022 Lymphocytes Auto (Unsp spec) [#/Vol] 2.24 10*3/uL 0.83-4.51 [facility] Basophil percentageOrdered B y: Renard Burgos on 12-19-2022 Basophils/100 WBC (Bld) 0.3 % 0-1 [facility] Eosinophils/100 WBC (Bld) 0.8 % 0-5 [facility] Neutrophils (Bld) [#/Vol] 5.7 10*3/uL 2.0-7.7 [facility] Neutrophils/100 WBC (Bld) 64.1 % 47-70 [facility] WBC (Bld) [#/Vol] 8.9 10*3/uL 4.4-11.0 [facility] Blood erythrocytes count (nu mber/volume)Ordered By: Renard Burgos on 12-19-2022 RBC (Bld) [#/Vol] 4.44 10*6/uL 4.6-6.2 [facility] Blood hemoglobin measurement (mass/volume)Ordered By: Renard Burgos on 12-19-2022 Hemoglobin (Bld) [Mass/Vol] 13.5 g/dL 13.0-16.5 [facility] Blood lymphocytes/100 leukoc ytesOrdered By: Renard Burgos on 12-19-2022 Lymphocytes/100 WBC (Bld) 25.1 % 19-41 [facility] Blood monocytes/100 leukocyt esOrdered By: Renard Burgos on 12-19-2022 Monocytes/100 WBC (Bld) 9.4 % 0-10 [facility] Blood platelet mean volumeOr dered By: Renard Burgos on 12-19-2022 Platelet mean volume (Bld) [Entitic vol] 11.0 fL 6.2-12.0 [facility] Determination of erythrocyte mean corpuscular volume (MCV)Ordered By: Renard Burgos on 12-19-2022 MCV (RBC) [Entitic vol] 92.8 fL 80-94 [facility] Hematocrit Auto (Bld) [Volum e fraction]Ordered By: Renard Burgos on 12-19-2022 Hematocrit (Bld) [Volume fraction] 41.2 % 40-54 [facility] Laboratory - Hematology and Cell countsOrdered By: Renard Burgos on 12-19-2022 Erythrocyte distribution width (RBC) [Entitic vol] 43.2 fL 35.1-43.9 [facility] Erythrocyte distribution width (RBC) [Ratio] 12.7 % 11.6-14.6 [facility] Immature granulocytes/100 WBC (Bld) 0.300 % 0.0-0.9 [facility] Comment on above: IG% - Immature Granu locytes (promyelocytes, myelocytes and metamyelocytes) > 1% indicates that a LEFT SHIFT is Present. MCH (RBC) [Entitic mass] 30.4 pg 27.0-32.0 [facility] Nucleated RBC/100 WBC (Bld) [Ratio] 0 % 0-5 [facility] MCHC Auto (RBC) [Mass/Vol]Or dered By: Renard Burgos on 12-19-2022 MCHC (RBC) [Mass/Vol] 32.8 g/dL 32-36 [facility] Platelets bldOrdered By: Pet shirley Burgos on 12-19-2022 Platelets (Bld) [#/Vol] 194 10*3/uL 150-450 [facility] Absolute lymphocyte countOrd ered By: Renard Burgos on 12-12-2022 Lymphocytes Auto (Unsp spec) [#/Vol] 2.33 10*3/uL 0.83-4.51 [facility] Basophil percentageOrdered B y: Renard Burgos on 12-12-2022 Basophils/100 WBC (Bld) 0.6 % 0-1 [facility] Eosinophils/100 WBC (Bld) 0.9 % 0-5 [facility] Neutrophils (Bld) [#/Vol] 5.8 10*3/uL 2.0-7.7 [facility] Neutrophils/100 WBC (Bld) 63.5 % 47-70 [facility] WBC (Bld) [#/Vol] 9.1 10*3/uL 4.4-11.0 [facility] Blood erythrocytes count (nu mber/volume)Ordered By: Renard Burgos on 12-12-2022 RBC (Bld) [#/Vol] 4.52 10*6/uL 4.6-6.2 [facility] Blood hemoglobin measurement (mass/volume)Ordered By: Renard Burgos on 12-12-2022 Hemoglobin (Bld) [Mass/Vol] 13.9 g/dL 13.0-16.5 [facility] Blood lymphocytes/100 leukoc ytesOrdered By: Renard Burgos on 12-12-2022 Lymphocytes/100 WBC (Bld) 25.6 % 19-41 [facility] Blood monocytes/100 leukocyt esOrdered By: Renard Burgos on 12-12-2022 Monocytes/100 WBC (Bld) 9.1 % 0-10 [facility] Blood platelet mean volumeOr dered By: Renard Burgos on 12-12-2022 Platelet mean volume (Bld) [Entitic vol] 10.9 fL 6.2-12.0 [facility] Determination of erythrocyte mean corpuscular volume (MCV)Ordered By: Renard Burgos on 12-12-2022 MCV (RBC) [Entitic vol] 94.2 fL 80-94 [facility] Hematocrit Auto (Bld) [Volum e fraction]Ordered By: Renard Burgos on 12-12-2022 Hematocrit (Bld) [Volume fraction] 42.6 % 40-54 [facility] Laboratory - Hematology and Cell countsOrdered By: Renard Burgos on 12-12-2022 Erythrocyte distribution width (RBC) [Entitic vol] 44.3 fL 35.1-43.9 [facility] Erythrocyte distribution width (RBC) [Ratio] 12.8 % 11.6-14.6 [facility] Immature granulocytes/100 WBC (Bld) 0.300 % 0.0-0.9 [facility] Comment on above: IG% - Immature Granu locytes (promyelocytes, myelocytes and metamyelocytes) > 1% indicates that a LEFT SHIFT is Present. MCH (RBC) [Entitic mass] 30.8 pg 27.0-32.0 [facility] Nucleated RBC/100 WBC (Bld) [Ratio] 0 % 0-5 [facility] MCHC Auto (RBC) [Mass/Vol]Or dered By: Renard Burgos on 12-12-2022 MCHC (RBC) [Mass/Vol] 32.6 g/dL 32-36 [facility] Platelets bldOrdered By: Lyubov Burgos on 12-12-2022 Platelets (Bld) [#/Vol] 211 10*3/uL 150-450 [facility] Absolute lymphocyte countOrd ered By: Renard Burgos on 12-05-2022 Lymphocytes Auto (Unsp spec) [#/Vol] 1.94 10*3/uL 0.83-4.51 [facility] Basophil percentageOrdered B y: Renard Burgos on 12-05-2022 Basophils/100 WBC (Bld) 0.4 % 0-1 [facility] Eosinophils/100 WBC (Bld) 0.9 % 0-5 [facility] Neutrophils (Bld) [#/Vol] 4.1 10*3/uL 2.0-7.7 [facility] Neutrophils/100 WBC (Bld) 61.2 % 47-70 [facility] WBC (Bld) [#/Vol] 6.7 10*3/uL 4.4-11.0 [facility] Blood erythrocytes count (nu mber/volume)Ordered By: Renard Burgos on 12-05-2022 RBC (Bld) [#/Vol] 4.39 10*6/uL 4.6-6.2 [facility] Blood hemoglobin measurement (mass/volume)Ordered By: Renard Burgos on 12-05-2022 Hemoglobin (Bld) [Mass/Vol] 13.3 g/dL 13.0-16.5 [facility] Blood lymphocytes/100 leukoc ytesOrdered By: Renard Burgos on 12-05-2022 Lymphocytes/100 WBC (Bld) 28.8 % 19-41 [facility] Blood monocytes/100 leukocyt esOrdered By: Renard Burgos on 12-05-2022 Monocytes/100 WBC (Bld) 8.3 % 0-10 [facility] Blood platelet mean volumeOr dered By: Renard Burgos on 12-05-2022 Platelet mean volume (Bld) [Entitic vol] 10.8 fL 6.2-12.0 [facility] Determination of erythrocyte mean corpuscular volume (MCV)Ordered By: Renard Burgos on 12-05-2022 MCV (RBC) [Entitic vol] 90.7 fL 80-94 [facility] Hematocrit Auto (Bld) [Volum e fraction]Ordered By: Renard Burgos on 12-05-2022 Hematocrit (Bld) [Volume fraction] 39.8 % 40-54 [facility] Laboratory - Hematology and Cell countsOrdered By: Renard Burgos on 12-05-2022 Erythrocyte distribution width (RBC) [Entitic vol] 41.8 fL 35.1-43.9 [facility] Erythrocyte distribution width (RBC) [Ratio] 12.6 % 11.6-14.6 [facility] Immature granulocytes/100 WBC (Bld) 0.400 % 0.0-0.9 [facility] Comment on above: IG% - Immature Granu locytes (promyelocytes, myelocytes and metamyelocytes) > 1% indicates that a LEFT SHIFT is Present. MCH (RBC) [Entitic mass] 30.3 pg 27.0-32.0 [facility] Nucleated RBC/100 WBC (Bld) [Ratio] 0 % 0-5 [facility] MCHC Auto (RBC) [Mass/Vol]Or dered By: Renard Burgos on 12-05-2022 MCHC (RBC) [Mass/Vol] 33.4 g/dL 32-36 [facility] Platelets bldOrdered By: Lyubov shirley Loretta on 12-05-2022 Platelets (Bld) [#/Vol] 208 10*3/uL 150-450 [facility] Absolute lymphocyte countOrd ered By: Renard Burgos on 11-28-2022 Lymphocytes Auto (Unsp spec) [#/Vol] 2.07 10*3/uL 0.83-4.51 [facility] Basophil percentageOrdered B y: Renard Burgos on 11-28-2022 Basophils/100 WBC (Bld) 0.4 % 0-1 [facility] Eosinophils/100 WBC (Bld) 0.6 % 0-5 [facility] Neutrophils (Bld) [#/Vol] 5.1 10*3/uL 2.0-7.7 [facility] Neutrophils/100 WBC (Bld) 64.6 % 47-70 [facility] WBC (Bld) [#/Vol] 7.9 10*3/uL 4.4-11.0 [facility] Blood erythrocytes count (nu mber/volume)Ordered By: Renard Burgos on 11-28-2022 RBC (Bld) [#/Vol] 4.54 10*6/uL 4.6-6.2 [facility] Blood hemoglobin measurement (mass/volume)Ordered By: Renard Burgos on 11-28-2022 Hemoglobin (Bld) [Mass/Vol] 13.7 g/dL 13.0-16.5 [facility] Blood lymphocytes/100 leukoc ytesOrdered By: Renard Burgos on 11-28-2022 Lymphocytes/100 WBC (Bld) 26.2 % 19-41 [facility] Blood monocytes/100 leukocyt esOrdered By: Renard Burgos on 11-28-2022 Monocytes/100 WBC (Bld) 7.7 % 0-10 [facility] Blood platelet mean volumeOr dered By: Renard Burgos on 11-28-2022 Platelet mean volume (Bld) [Entitic vol] 10.6 fL 6.2-12.0 [facility] Determination of erythrocyte mean corpuscular volume (MCV)Ordered By: Renard Burgos on 11-28-2022 MCV (RBC) [Entitic vol] 93.6 fL 80-94 [facility] Hematocrit Auto (Bld) [Volum e fraction]Ordered By: Renard Burgos on 11-28-2022 Hematocrit (Bld) [Volume fraction] 42.5 % 40-54 [facility] Laboratory - Hematology and Cell countsOrdered By: Renard Burgos on 11-28-2022 Erythrocyte distribution width (RBC) [Entitic vol] 43.5 fL 35.1-43.9 [facility] Erythrocyte distribution width (RBC) [Ratio] 12.7 % 11.6-14.6 [facility] Immature granulocytes/100 WBC (Bld) 0.500 % 0.0-0.9 [facility] Comment on above: IG% - Immature Granu locytes (promyelocytes, myelocytes and metamyelocytes) > 1% indicates that a LEFT SHIFT is Present. MCH (RBC) [Entitic mass] 30.2 pg 27.0-32.0 [facility] Nucleated RBC/100 WBC (Bld) [Ratio] 0 % 0-5 [facility] MCHC Auto (RBC) [Mass/Vol]Or dered By: Renard Burgos on 11-28-2022 MCHC (RBC) [Mass/Vol] 32.2 g/dL 32-36 [facility] Platelets bldOrdered By: Lyubov Burgos on 11-28-2022 Platelets (Bld) [#/Vol] 201 10*3/uL 150-450 [facility] Absolute lymphocyte countOrd ered By: Renard Burgos on 11-21-2022 Lymphocytes Auto (Unsp spec) [#/Vol] 2.32 10*3/uL 0.83-4.51 [facility] Basophil percentageOrdered B y: Renard Burgos on 11-21-2022 Basophils/100 WBC (Bld) 0.6 % 0-1 [facility] Eosinophils/100 WBC (Bld) 0.7 % 0-5 [facility] Neutrophils (Bld) [#/Vol] 5.0 10*3/uL 2.0-7.7 [facility] Neutrophils/100 WBC (Bld) 60.6 % 47-70 [facility] WBC (Bld) [#/Vol] 8.2 10*3/uL 4.4-11.0 [facility] Blood erythrocytes count (nu mber/volume)Ordered By: Renard Burgos on 11-21-2022 RBC (Bld) [#/Vol] 4.71 10*6/uL 4.6-6.2 [facility] Blood hemoglobin measurement (mass/volume)Ordered By: Renard Burgos on 11-21-2022 Hemoglobin (Bld) [Mass/Vol] 14.3 g/dL 13.0-16.5 [facility] Blood lymphocytes/100 leukoc ytesOrdered By: Renard Burgos on 11-21-2022 Lymphocytes/100 WBC (Bld) 28.2 % 19-41 [facility] Blood monocytes/100 leukocyt esOrdered By: Renard Burgos on 11-21-2022 Monocytes/100 WBC (Bld) 9.2 % 0-10 [facility] Blood platelet mean volumeOr dered By: Renard Burgos on 11-21-2022 Platelet mean volume (Bld) [Entitic vol] 10.4 fL 6.2-12.0 [facility] Determination of erythrocyte mean corpuscular volume (MCV)Ordered By: Renard Burgos on 11-21-2022 MCV (RBC) [Entitic vol] 91.9 fL 80-94 [facility] Hematocrit Auto (Bld) [Volum e fraction]Ordered By: Renard Burgos on 11-21-2022 Hematocrit (Bld) [Volume fraction] 43.3 % 40-54 [facility] Laboratory - Hematology and Cell countsOrdered By: Renard Burgos on 11-21-2022 Erythrocyte distribution width (RBC) [Entitic vol] 43.1 fL 35.1-43.9 [facility] Erythrocyte distribution width (RBC) [Ratio] 12.8 % 11.6-14.6 [facility] Immature granulocytes/100 WBC (Bld) 0.700 % 0.0-0.9 [facility] Comment on above: IG% - Immature Granu locytes (promyelocytes, myelocytes and metamyelocytes) > 1% indicates that a LEFT SHIFT is Present. MCH (RBC) [Entitic mass] 30.4 pg 27.0-32.0 [facility] Nucleated RBC/100 WBC (Bld) [Ratio] 0 % 0-5 [facility] MCHC Auto (RBC) [Mass/Vol]Or dered By: Renard Burgos on 11-21-2022 MCHC (RBC) [Mass/Vol] 33.0 g/dL 32-36 [facility] Platelets bldOrdered By: Lyubov Burgos on 11-21-2022 Platelets (Bld) [#/Vol] 219 10*3/uL 150-450 [facility] Absolute lymphocyte countOrd ered By: Renard Burgos on 11-14-2022 Lymphocytes Auto (Unsp spec) [#/Vol] 1.82 10*3/uL 0.83-4.51 [facility] Basophil percentageOrdered B y: Renard Burgos on 11-14-2022 Basophils/100 WBC (Bld) 0.4 % 0-1 [facility] Chloride [Moles/Vol] 107 mmol/L 98-107 [facility] Eosinophils/100 WBC (Bld) 0.4 % 0-5 [facility] Glucose [Mass/Vol] 121 mg/dL 74-106 [facility] Comment on above: Fasting Glucose resu lt from 100 to 125 mg/dL suggests IMPAIRED HOMEOSTASIS per A.D.A. criteria. Neutrophils (Bld) [#/Vol] 4.7 10*3/uL 2.0-7.7 [facility] Neutrophils/100 WBC (Bld) 66.6 % 47-70 [facility] Potassium [Moles/Vol] 3.7 mmol/L 3.5-5.1 [facility] Sodium [Moles/Vol] 141 mmol/L 136-145 [facility] WBC (Bld) [#/Vol] 7.1 10*3/uL 4.4-11.0 [facility] Blood erythrocytes count (nu mber/volume)Ordered By: Renard Burgos on 11-14-2022 RBC (Bld) [#/Vol] 4.35 10*6/uL 4.6-6.2 [facility] Blood hemoglobin measurement (mass/volume)Ordered By: Renard Burgos on 11-14-2022 Hemoglobin (Bld) [Mass/Vol] 13.6 g/dL 13.0-16.5 [facility] Blood lymphocytes/100 leukoc ytesOrdered By: Renard Burgos on 11-14-2022 Lymphocytes/100 WBC (Bld) 25.6 % 19-41 [facility] Blood monocytes/100 leukocyt esOrdered By: Renard Burgos on 11-14-2022 Monocytes/100 WBC (Bld) 6.6 % 0-10 [facility] Blood platelet mean volumeOr dered By: Renard Burgos on 11-14-2022 Platelet mean volume (Bld) [Entitic vol] 10.9 fL 6.2-12.0 [facility] Determination of erythrocyte mean corpuscular volume (MCV)Ordered By: Renard Burgos on 11-14-2022 MCV (RBC) [Entitic vol] 93.3 fL 80-94 [facility] Hematocrit Auto (Bld) [Volum e fraction]Ordered By: Renard Burgos on 11-14-2022 Hematocrit (Bld) [Volume fraction] 40.6 % 40-54 [facility] Laboratory - Chemistry and C hemistry - challengeOrdered By: Renard Burgos on 11-14-2022 CO2 [Moles/Vol] 31.0 mmol/L 21.0-32.0 [facility] Urea nitrogen/Creatinine [Mass ratio] 26.0 mg/mg 10-20 [facility] Laboratory - Hematology and Cell countsOrdered By: Renard Burgos on 11-14-2022 Erythrocyte distribution width (RBC) [Entitic vol] 43.9 fL 35.1-43.9 [facility] Erythrocyte distribution width (RBC) [Ratio] 12.8 % 11.6-14.6 [facility] Immature granulocytes/100 WBC (Bld) 0.400 % 0.0-0.9 [facility] Comment on above: IG% - Immature Granu locytes (promyelocytes, myelocytes and metamyelocytes) > 1% indicates that a LEFT SHIFT is Present. MCH (RBC) [Entitic mass] 31.3 pg 27.0-32.0 [facility] Nucleated RBC/100 WBC (Bld) [Ratio] 0 % 0-5 [facility] MCHC Auto (RBC) [Mass/Vol]Or dered By: Renard Burgos on 11-14-2022 MCHC (RBC) [Mass/Vol] 33.5 g/dL 32-36 [facility] No Panel InformationOrdered By: Renard Burgos on 11-14-2022 Estimated GFR (MDRD) Amer 147 mL/min >60 [facility] Comment on above: GFR Calc Estimated GFR (MDRD) Non-Af Amer 122 mL/min >60 [facility] Comment on above: Non- GFR Calc Platelets bldOrdered By: Lyubov Burgos on 11-14-2022 Platelets (Bld) [#/Vol] 202 10*3/uL 150-450 [facility] Serum or plasma calcium gordy urement (mass/volume)Ordered By: Renard Burgos on 11-14-2022 Calcium [Mass/Vol] 8.2 mg/dL 8.5-10.1 [facility] Serum or plasma creatinine m easurement (mass/volume)Ordered By: Renard Burgos on 11-14-2022 Creatinine [Mass/Vol] 0.69 mg/dL 0.70-1.30 [facility] Comment on above: The validity of the calculated GFR & GFRAA in patients over 70 years has not been determined. Clinical correlation is essential. Serum or plasma urea nitroge n measurement (mass/volume)Ordered By: Renard Burgos on 11-14-2022 Urea nitrogen [Mass/Vol] 18 mg/dL 7-18 [facility] Thin prep Papanicolaou smear with manual screeningOrdered By: Renard Burgos on 11-14-2022 Thin prep Papanicolaou smear with manual screening 3 5-15 [facility] Absolute lymphocyte countOrd ered By: Renard Burgos on 11-07-2022 Lymphocytes Auto (Unsp spec) [#/Vol] 1.99 10*3/uL 0.83-4.51 [facility] Basophil percentageOrdered B y: Renard Burgos on 11-07-2022 Basophils/100 WBC (Bld) 0.8 % 0-1 [facility] Eosinophils/100 WBC (Bld) 0.5 % 0-5 [facility] Neutrophils (Bld) [#/Vol] 5.1 10*3/uL 2.0-7.7 [facility] Neutrophils/100 WBC (Bld) 64.0 % 47-70 [facility] WBC (Bld) [#/Vol] 8.0 10*3/uL 4.4-11.0 [facility] Blood erythrocytes count (nu mber/volume)Ordered By: Renard Burgos on 11-07-2022 RBC (Bld) [#/Vol] 4.45 10*6/uL 4.6-6.2 [facility] Blood hemoglobin measurement (mass/volume)Ordered By: Renard Burgos on 11-07-2022 Hemoglobin (Bld) [Mass/Vol] 13.7 g/dL 13.0-16.5 [facility] Blood lymphocytes/100 leukoc ytesOrdered By: Renard Burgos on 11-07-2022 Lymphocytes/100 WBC (Bld) 25.0 % 19-41 [facility] Blood monocytes/100 leukocyt esOrdered By: Renard Burgos on 11-07-2022 Monocytes/100 WBC (Bld) 9.4 % 0-10 [facility] Blood platelet mean volumeOr dered By: Renard Burgos on 11-07-2022 Platelet mean volume (Bld) [Entitic vol] 10.7 fL 6.2-12.0 [facility] Determination of erythrocyte mean corpuscular volume (MCV)Ordered By: Renard Burgos on 11-07-2022 MCV (RBC) [Entitic vol] 91.5 fL 80-94 [facility] Hematocrit Auto (Bld) [Volum e fraction]Ordered By: Renard Burgos on 11-07-2022 Hematocrit (Bld) [Volume fraction] 40.7 % 40-54 [facility] - Hematology and Cell countsOrdered By: Renard Burgos on 11-07-2022 Erythrocyte distribution width (RBC) [Entitic vol] 42.4 fL 35.1-43.9 [facility] Erythrocyte distribution width (RBC) [Ratio] 12.8 % 11.6-14.6 [facility] Immature granulocytes/100 WBC (Bld) 0.300 % 0.0-0.9 [facility] Comment on above: IG% - Immature Granu locytes (promyelocytes, myelocytes and metamyelocytes) > 1% indicates that a LEFT SHIFT is Present. MCH (RBC) [Entitic mass] 30.8 pg 27.0-32.0 [facility] Nucleated RBC/100 WBC (Bld) [Ratio] 0 % 0-5 [facility] MCHC Auto (RBC) [Mass/Vol]Or dered By: Renard Burgos on 11-07-2022 MCHC (RBC) [Mass/Vol] 33.7 g/dL 32-36 [facility] Platelets bldOrdered By: Lyubov Burgos on 11-07-2022 Platelets (Bld) [#/Vol] 220 10*3/uL 150-450 [facility] Absolute lymphocyte countOrd ered By: Renard Burgos on 10-31-2022 Lymphocytes Auto (Unsp spec) [#/Vol] 1.97 10*3/uL 0.83-4.51 [facility] Basophil percentageOrdered B y: Renard Burgos on 10-31-2022 Basophils/100 WBC (Bld) 0.5 % 0-1 [facility] Eosinophils/100 WBC (Bld) 0.6 % 0-5 [facility] Neutrophils (Bld) [#/Vol] 6.7 10*3/uL 2.0-7.7 [facility] Neutrophils/100 WBC (Bld) 69.9 % 47-70 [facility] WBC (Bld) [#/Vol] 9.6 10*3/uL 4.4-11.0 [facility] Blood erythrocytes count (nu mber/volume)Ordered By: Renard Burgos on 10-31-2022 RBC (Bld) [#/Vol] 4.47 10*6/uL 4.6-6.2 [facility] Blood hemoglobin measurement (mass/volume)Ordered By: Renard Burgos on 10-31-2022 Hemoglobin (Bld) [Mass/Vol] 13.5 g/dL 13.0-16.5 [facility] Blood lymphocytes/100 leukoc ytesOrdered By: Renard Burgos on 10-31-2022 Lymphocytes/100 WBC (Bld) 20.5 % 19-41 [facility] Blood monocytes/100 leukocyt esOrdered By: Renard Burgos on 10-31-2022 Monocytes/100 WBC (Bld) 7.9 % 0-10 [facility] Blood platelet mean volumeOr dered By: Renard Burgos on 10-31-2022 Platelet mean volume (Bld) [Entitic vol] 11.1 fL 6.2-12.0 [facility] Determination of erythrocyte mean corpuscular volume (MCV)Ordered By: Renard Burgos on 10-31-2022 MCV (RBC) [Entitic vol] 92.4 fL 80-94 [facility] Hematocrit Auto (Bld) [Volum e fraction]Ordered By: Renard Burgos on 10-31-2022 Hematocrit (Bld) [Volume fraction] 41.3 % 40-54 [facility] Laboratory - Hematology and Cell countsOrdered By: Renard Burgos on 10-31-2022 Erythrocyte distribution width (RBC) [Entitic vol] 42.9 fL 35.1-43.9 [facility] Erythrocyte distribution width (RBC) [Ratio] 12.7 % 11.6-14.6 [facility] Immature granulocytes/100 WBC (Bld) 0.600 % 0.0-0.9 [facility] Comment on above: IG% - Immature Granu locytes (promyelocytes, myelocytes and metamyelocytes) > 1% indicates that a LEFT SHIFT is Present. MCH (RBC) [Entitic mass] 30.2 pg 27.0-32.0 [facility] Nucleated RBC/100 WBC (Bld) [Ratio] 0 % 0-5 [facility] MCHC Auto (RBC) [Mass/Vol]Or dered By: Renard Burgos on 10-31-2022 MCHC (RBC) [Mass/Vol] 32.7 g/dL 32-36 [facility] Platelets bldOrdered By: Lyubov Burgos on 10-31-2022 Platelets (Bld) [#/Vol] 221 10*3/uL 150-450 [facility] Absolute lymphocyte countOrd ered By: Renard Burgos on 10-24-2022 Lymphocytes Auto (Unsp spec) [#/Vol] 1.96 10*3/uL 0.83-4.51 [facility] Basophil percentageOrdered B y: Renard Burgos on 10-24-2022 Basophils/100 WBC (Bld) 0.4 % 0-1 [facility] Eosinophils/100 WBC (Bld) 0.7 % 0-5 [facility] Neutrophils (Bld) [#/Vol] 4.5 10*3/uL 2.0-7.7 [facility] Neutrophils/100 WBC (Bld) 61.9 % 47-70 [facility] WBC (Bld) [#/Vol] 7.3 10*3/uL 4.4-11.0 [facility] Blood erythrocytes count (nu mber/volume)Ordered By: Renard Burgos on 10-24-2022 RBC (Bld) [#/Vol] 4.41 10*6/uL 4.6-6.2 [facility] Blood hemoglobin measurement (mass/volume)Ordered By: Renard Burgos on 10-24-2022 Hemoglobin (Bld) [Mass/Vol] 13.2 g/dL 13.0-16.5 [facility] Blood lymphocytes/100 leukoc ytesOrdered By: Renard Burgos on 10-24-2022 Lymphocytes/100 WBC (Bld) 27.0 % 19-41 [facility] Blood monocytes/100 leukocyt esOrdered By: Renard Burgos on 10-24-2022 Monocytes/100 WBC (Bld) 9.4 % 0-10 [facility] Blood platelet mean volumeOr dered By: Renard Burgos on 10-24-2022 Platelet mean volume (Bld) [Entitic vol] 10.9 fL 6.2-12.0 [facility] Determination of erythrocyte mean corpuscular volume (MCV)Ordered By: Renard Burgos on 10-24-2022 MCV (RBC) [Entitic vol] 92.1 fL 80-94 [facility] Hematocrit Auto (Bld) [Volum e fraction]Ordered By: Renard Burgos on 10-24-2022 Hematocrit (Bld) [Volume fraction] 40.6 % 40-54 [facility] Laboratory - Hematology and Cell countsOrdered By: Renard Burgos on 10-24-2022 Erythrocyte distribution width (RBC) [Entitic vol] 42.8 fL 35.1-43.9 [facility] Erythrocyte distribution width (RBC) [Ratio] 12.8 % 11.6-14.6 [facility] Immature granulocytes/100 WBC (Bld) 0.600 % 0.0-0.9 [facility] Comment on above: IG% - Immature Granu locytes (promyelocytes, myelocytes and metamyelocytes) > 1% indicates that a LEFT SHIFT is Present. MCH (RBC) [Entitic mass] 29.9 pg 27.0-32.0 [facility] Nucleated RBC/100 WBC (Bld) [Ratio] 0 % 0-5 [facility] MCHC Auto (RBC) [Mass/Vol]Or dered By: Renard Burgos on 10-24-2022 MCHC (RBC) [Mass/Vol] 32.5 g/dL 32-36 [facility] Platelets bldOrdered By: Lyubov Burgos on 10-24-2022 Platelets (Bld) [#/Vol] 213 10*3/uL 150-450 [facility] Absolute lymphocyte countOrd ered By: Renard Burgos on 10-17-2022 Lymphocytes Auto (Unsp spec) [#/Vol] 2.05 10*3/uL 0.83-4.51 [facility] Basophil percentageOrdered B y: Renard Burgos on 10-17-2022 Basophils/100 WBC (Bld) 0.4 % 0-1 [facility] Eosinophils/100 WBC (Bld) 0.5 % 0-5 [facility] Neutrophils (Bld) [#/Vol] 6.7 10*3/uL 2.0-7.7 [facility] Neutrophils/100 WBC (Bld) 70.9 % 47-70 [facility] WBC (Bld) [#/Vol] 9.4 10*3/uL 4.4-11.0 [facility] Blood erythrocytes count (nu mber/volume)Ordered By: Renard Burgos on 10-17-2022 RBC (Bld) [#/Vol] 4.33 10*6/uL 4.6-6.2 [facility] Blood hemoglobin measurement (mass/volume)Ordered By: Renard Burgos on 10-17-2022 Hemoglobin (Bld) [Mass/Vol] 13.3 g/dL 13.0-16.5 [facility] Blood lymphocytes/100 leukoc ytesOrdered By: Renard Burgos on 10-17-2022 Lymphocytes/100 WBC (Bld) 21.7 % 19-41 [facility] Blood monocytes/100 leukocyt esOrdered By: Renard Burgos on 10-17-2022 Monocytes/100 WBC (Bld) 6.1 % 0-10 [facility] Blood platelet mean volumeOr dered By: Renard Burgos on 10-17-2022 Platelet mean volume (Bld) [Entitic vol] 10.9 fL 6.2-12.0 [facility] Determination of erythrocyte mean corpuscular volume (MCV)Ordered By: Renard Burgos on 10-17-2022 MCV (RBC) [Entitic vol] 93.8 fL 80-94 [facility] Hematocrit Auto (Bld) [Volum e fraction]Ordered By: Renard Burgos on 10-17-2022 Hematocrit (Bld) [Volume fraction] 40.6 % 40-54 [facility] Laboratory - Hematology and Cell countsOrdered By: Renard Burgos on 10-17-2022 Erythrocyte distribution width (RBC) [Entitic vol] 42.7 fL 35.1-43.9 [facility] Erythrocyte distribution width (RBC) [Ratio] 12.4 % 11.6-14.6 [facility] Immature granulocytes/100 WBC (Bld) 0.400 % 0.0-0.9 [facility] Comment on above: IG% - Immature Granu locytes (promyelocytes, myelocytes and metamyelocytes) > 1% indicates that a LEFT SHIFT is Present. MCH (RBC) [Entitic mass] 30.7 pg 27.0-32.0 [facility] Nucleated RBC/100 WBC (Bld) [Ratio] 0 % 0-5 [facility] MCHC Auto (RBC) [Mass/Vol]Or dered By: Renard Burgos on 10-17-2022 MCHC (RBC) [Mass/Vol] 32.8 g/dL 32-36 [facility] Platelets bldOrdered By: Lyubov Burgos on 10-17-2022 Platelets (Bld) [#/Vol] 186 10*3/uL 150-450 [facility] Absolute lymphocyte countOrd ered By: Renard Burgos on 10-10-2022 Lymphocytes Auto (Unsp spec) [#/Vol] 2.21 10*3/uL 0.83-4.51 [facility] Basophil percentageOrdered B y: Renard Burgos on 10-10-2022 Basophils/100 WBC (Bld) 0.6 % 0-1 [facility] Eosinophils/100 WBC (Bld) 0.6 % 0-5 [facility] Neutrophils (Bld) [#/Vol] 4.7 10*3/uL 2.0-7.7 [facility] Neutrophils/100 WBC (Bld) 59.6 % 47-70 [facility] WBC (Bld) [#/Vol] 7.9 10*3/uL 4.4-11.0 [facility] Blood erythrocytes count (nu mber/volume)Ordered By: Renard Burgos on 10-10-2022 RBC (Bld) [#/Vol] 4.78 10*6/uL 4.6-6.2 [facility] Blood hemoglobin measurement (mass/volume)Ordered By: Renard Burgos on 10-10-2022 Hemoglobin (Bld) [Mass/Vol] 14.4 g/dL 13.0-16.5 [facility] Blood lymphocytes/100 leukoc ytesOrdered By: Renard Burgos on 10-10-2022 Lymphocytes/100 WBC (Bld) 28.0 % 19-41 [facility] Blood monocytes/100 leukocyt esOrdered By: Renard Burgos on 10-10-2022 Monocytes/100 WBC (Bld) 10.8 % 0-10 [facility] Blood platelet mean volumeOr dered By: Renard Burgos on 10-10-2022 Platelet mean volume (Bld) [Entitic vol] 10.7 fL 6.2-12.0 [facility] Determination of erythrocyte mean corpuscular volume (MCV)Ordered By: Renard Burgos on 10-10-2022 MCV (RBC) [Entitic vol] 94.8 fL 80-94 [facility] Hematocrit Auto (Bld) [Volum e fraction]Ordered By: Renard Burgos on 10-10-2022 Hematocrit (Bld) [Volume fraction] 45.3 % 40-54 [facility] Laboratory - Hematology and Cell countsOrdered By: Renard Burgos on 10-10-2022 Erythrocyte distribution width (RBC) [Entitic vol] 43.8 fL 35.1-43.9 [facility] Erythrocyte distribution width (RBC) [Ratio] 12.6 % 11.6-14.6 [facility] Immature granulocytes/100 WBC (Bld) 0.400 % 0.0-0.9 [facility] Comment on above: IG% - Immature Granu locytes (promyelocytes, myelocytes and metamyelocytes) > 1% indicates that a LEFT SHIFT is Present. MCH (RBC) [Entitic mass] 30.1 pg 27.0-32.0 [facility] Nucleated RBC/100 WBC (Bld) [Ratio] 0 % 0-5 [facility] MCHC Auto (RBC) [Mass/Vol]Or dered By: Renard Burgos on 10-10-2022 MCHC (RBC) [Mass/Vol] 31.8 g/dL 32-36 [facility] Platelets bldOrdered By: Lyubov Burgos on 10-10-2022 Platelets (Bld) [#/Vol] 198 10*3/uL 150-450 [facility] Absolute lymphocyte countOrd ered By: Renard Burgos on 10-03-2022 Lymphocytes Auto (Unsp spec) [#/Vol] 2.00 10*3/uL 0.83-4.51 [facility] Basophil percentageOrdered B y: Renard Burgos on 10-03-2022 Basophils/100 WBC (Bld) 0.6 % 0-1 [facility] Bilirubin [Mass/Vol] 0.30 mg/dL 0.20-1.00 [facility] Comment on above: For patients on eltr ombopag therapy, use of Dimension [place] TBIL is not recommended. Chloride [Moles/Vol] 109 mmol/L 98-107 [facility] Cholesterol [Mass/Vol] 129 mg/dL <200 [facility] Comment on above: <200 mg/dL Desirable 200-240 mg/dL Borderline >240 mg/dL High Risk Eosinophils/100 WBC (Bld) 0.8 % 0-5 [facility] Glucose [Mass/Vol] 82 mg/dL 74-106 [facility] Neutrophils (Bld) [#/Vol] 5.1 10*3/uL 2.0-7.7 [facility] Neutrophils/100 WBC (Bld) 63.2 % 47-70 [facility] Potassium [Moles/Vol] 3.9 mmol/L 3.5-5.1 [facility] Protein [Mass/Vol] 6.1 g/dL 6.4-8.2 [facility] Sodium [Moles/Vol] 140 mmol/L 136-145 [facility] Triglyceride [Mass/Vol] 209 mg/dL <199 [facility] Comment on above: The drugs N-Acetylcy steine and Metamizole may falsely depress this assay.Serum Triglycerides Reference Interval Normal <150 mg/dL Borderline high 150 - 199 mg/dL High 200 - 499 mg/dL Very High > or = 500 mg/dL WBC (Bld) [#/Vol] 8.0 10*3/uL 4.4-11.0 [facility] Blood erythrocytes count (nu mber/volume)Ordered By: Renard Burgos on 10-03-2022 RBC (Bld) [#/Vol] 4.58 10*6/uL 4.6-6.2 [facility] Blood hemoglobin measurement (mass/volume)Ordered By: Renard Burgos on 10-03-2022 Hemoglobin (Bld) [Mass/Vol] 13.9 g/dL 13.0-16.5 [facility] Blood lymphocytes/100 leukoc ytesOrdered By: Renard Burgos on 10-03-2022 Lymphocytes/100 WBC (Bld) 25.1 % 19-41 [facility] Blood monocytes/100 leukocyt esOrdered By: Renard Burgos on 10-03-2022 Monocytes/100 WBC (Bld) 10.0 % 0-10 [facility] Blood platelet mean volumeOr dered By: Renard Burgos on 10-03-2022 Platelet mean volume (Bld) [Entitic vol] 11.1 fL 6.2-12.0 [facility] Determination of erythrocyte mean corpuscular volume (MCV)Ordered By: Renard Burgos on 10-03-2022 MCV (RBC) [Entitic vol] 93.9 fL 80-94 [facility] Hematocrit Auto (Bld) [Volum e fraction]Ordered By: Renard Burgos on 10-03-2022 Hematocrit (Bld) [Volume fraction] 43.0 % 40-54 [facility] Laboratory - Chemistry and C hemistry - challengeOrdered By: Renard Burgos on 10-03-2022 ALP [Catalytic activity/Vol] 98 U/L 45-117 [facility] ALT [Catalytic activity/Vol] 19 U/L 16-61 [facility] CO2 [Moles/Vol] 31.0 mmol/L 21.0-32.0 [facility] Globulin (S) [Mass/Vol] 3.1 g/dL 2.2-4.2 [facility] Urea nitrogen/Creatinine [Mass ratio] 25.6 mg/mg 10-20 [facility] Laboratory - Hematology and Cell countsOrdered By: Renard Burgos on 10-03-2022 Erythrocyte distribution width (RBC) [Entitic vol] 43.8 fL 35.1-43.9 [facility] Erythrocyte distribution width (RBC) [Ratio] 12.7 % 11.6-14.6 [facility] Immature granulocytes/100 WBC (Bld) 0.300 % 0.0-0.9 [facility] Comment on above: IG% - Immature Granu locytes (promyelocytes, myelocytes and metamyelocytes) > 1% indicates that a LEFT SHIFT is Present. MCH (RBC) [Entitic mass] 30.3 pg 27.0-32.0 [facility] Nucleated RBC/100 WBC (Bld) [Ratio] 0 % 0-5 [facility] MCHC Auto (RBC) [Mass/Vol]Or dered By: Renard Burgos on 10-03-2022 MCHC (RBC) [Mass/Vol] 32.3 g/dL 32-36 [facility] No Panel InformationOrdered By: Renard Burgos on 10-03-2022 Estimated GFR (MDRD) Amer 165 mL/min >60 [facility] Comment on above: GFR Calc Estimated GFR (MDRD) Non-Af Amer 137 mL/min >60 [facility] Comment on above: Non- GFR Calc Platelets bldOrdered By: Lyubov Burgos on 10-03-2022 Platelets (Bld) [#/Vol] 204 10*3/uL 150-450 [facility] Serum or plasma albumin gordy urement (mass/volume)Ordered By: Renard Burgos on 10-03-2022 Albumin [Mass/Vol] 3.0 g/dL 3.2-5.0 [facility] Serum or plasma albumin/glob ulin mass ratioOrdered By: Renard Burgos on 10-03-2022 Albumin/Globulin [Mass ratio] 1.0 {ratio} 0.9-2.4 [facility] Serum or plasma calcium gordy urement (mass/volume)Ordered By: Renard Burgos on 10-03-2022 Calcium [Mass/Vol] 8.4 mg/dL 8.5-10.1 [facility] Serum or plasma cholesterol in HDL measurement (mass/volume)Ordered By: Renard Burgos on 10-03-2022 Cholesterol in HDL [Mass/Vol] 29 mg/dL >40 [facility] Comment on above: The drugs N-Acetylcy steine and Metamizole may falsely depress this assay. Reference Range HDL <40 mg/dL Low HDL Cholesterol HDL >or= 60 mg/dL High HDL Cholesterol Serum or plasma cholesterol in VLDL measurement (mass/volume)Ordered By: Renard Burgos on 10-03-2022 Cholesterol in VLDL [Mass/Vol] 42 mg/dL 5-40 [facility] Serum or plasma creatinine m easurement (mass/volume)Ordered By: Renard Burgos on 10-03-2022 Creatinine [Mass/Vol] 0.63 mg/dL 0.70-1.30 [facility] Comment on above: The validity of the calculated GFR & GFRAA in patients over 70 years has not been determined. Clinical correlation is essential. Serum or plasma low density lipoprotein (LDL) cholesterol measurement (mass/volume)Ordered By: Renard Burgos on 10-03-2022 Cholesterol in LDL [Mass/Vol] 58 mg/dL 0-130 [facility] Serum or plasma urea nitroge n measurement (mass/volume)Ordered By: Renard Burgos on 10-03-2022 Urea nitrogen [Mass/Vol] 16 mg/dL 7-18 [facility] Thin prep Papanicolaou smear with manual screeningOrdered By: Renard Burgos on 10-03-2022 Thin prep Papanicolaou smear with manual screening 13 U/L 15-37 [facility] Thin prep Papanicolaou smear with manual screening 0 5-15 [facility] Absolute lymphocyte countOrd ered By: Renard Burgos on 09-19-2022 Lymphocytes Auto (Unsp spec) [#/Vol] 1.59 10*3/uL 0.83-4.51 [facility] Basophil percentageOrdered B y: Renard Burgos on 09-19-2022 Basophils/100 WBC (Bld) 0.5 % 0-1 [facility] Eosinophils/100 WBC (Bld) 0.3 % 0-5 [facility] Neutrophils (Bld) [#/Vol] 7.4 10*3/uL 2.0-7.7 [facility] Neutrophils/100 WBC (Bld) 75.0 % 47-70 [facility] WBC (Bld) [#/Vol] 9.9 10*3/uL 4.4-11.0 [facility] Blood erythrocytes count (nu mber/volume)Ordered By: Renard Burgos on 09-19-2022 RBC (Bld) [#/Vol] 4.46 10*6/uL 4.6-6.2 [facility] Blood hemoglobin measurement (mass/volume)Ordered By: Renard Burgos on 09-19-2022 Hemoglobin (Bld) [Mass/Vol] 13.5 g/dL 13.0-16.5 [facility] Blood lymphocytes/100 leukoc ytesOrdered By: Renard Burgos on 09-19-2022 Lymphocytes/100 WBC (Bld) 16.1 % 19-41 [facility] Blood monocytes/100 leukocyt esOrdered By: Renard Burgos on 09-19-2022 Monocytes/100 WBC (Bld) 7.6 % 0-10 [facility] Blood platelet mean volumeOr dered By: Renard Burgos on 09-19-2022 Platelet mean volume (Bld) [Entitic vol] 10.8 fL 6.2-12.0 [facility] Determination of erythrocyte mean corpuscular volume (MCV)Ordered By: Renard Burgos on 09-19-2022 MCV (RBC) [Entitic vol] 92.2 fL 80-94 [facility] Hematocrit Auto (Bld) [Volum e fraction]Ordered By: Renard Burgos on 09-19-2022 Hematocrit (Bld) [Volume fraction] 41.1 % 40-54 [facility] Laboratory - Hematology and Cell countsOrdered By: Renard Burgos on 09-19-2022 Erythrocyte distribution width (RBC) [Entitic vol] 41.2 fL 35.1-43.9 [facility] Erythrocyte distribution width (RBC) [Ratio] 12.3 % 11.6-14.6 [facility] Immature granulocytes/100 WBC (Bld) 0.500 % 0.0-0.9 [facility] Comment on above: IG% - Immature Granu locytes (promyelocytes, myelocytes and metamyelocytes) > 1% indicates that a LEFT SHIFT is Present. MCH (RBC) [Entitic mass] 30.3 pg 27.0-32.0 [facility] Nucleated RBC/100 WBC (Bld) [Ratio] 0 % 0-5 [facility] MCHC Auto (RBC) [Mass/Vol]Or dered By: Renard Burgos on 09-19-2022 MCHC (RBC) [Mass/Vol] 32.8 g/dL 32-36 [facility] Platelets bldOrdered By: Lyubov Burgos on 09-19-2022 Platelets (Bld) [#/Vol] 245 10*3/uL 150-450 [facility] Absolute lymphocyte countOrd ered By: Renard Burgos on 09-12-2022 Lymphocytes Auto (Unsp spec) [#/Vol] 2.11 10*3/uL 0.83-4.51 [facility] Basophil percentageOrdered B y: Renard Burgos on 09-12-2022 Basophils/100 WBC (Bld) 0.5 % 0-1 [facility] Eosinophils/100 WBC (Bld) 0.7 % 0-5 [facility] Neutrophils (Bld) [#/Vol] 4.7 10*3/uL 2.0-7.7 [facility] Neutrophils/100 WBC (Bld) 63.6 % 47-70 [facility] WBC (Bld) [#/Vol] 7.3 10*3/uL 4.4-11.0 [facility] Blood erythrocytes count (nu mber/volume)Ordered By: Renard Burgos on 09-12-2022 RBC (Bld) [#/Vol] 4.40 10*6/uL 4.6-6.2 [facility] Blood hemoglobin measurement (mass/volume)Ordered By: Renard Burgos on 09-12-2022 Hemoglobin (Bld) [Mass/Vol] 13.5 g/dL 13.0-16.5 [facility] Blood lymphocytes/100 leukoc ytesOrdered By: Renard Burgos on 09-12-2022 Lymphocytes/100 WBC (Bld) 28.8 % 19-41 [facility] Blood monocytes/100 leukocyt esOrdered By: Renard Burgos on 09-12-2022 Monocytes/100 WBC (Bld) 6.1 % 0-10 [facility] Blood platelet mean volumeOr dered By: Renard Burgos on 09-12-2022 Platelet mean volume (Bld) [Entitic vol] 10.7 fL 6.2-12.0 [facility] Determination of erythrocyte mean corpuscular volume (MCV)Ordered By: Renard Burgos on 09-12-2022 MCV (RBC) [Entitic vol] 91.4 fL 80-94 [facility] Hematocrit Auto (Bld) [Volum e fraction]Ordered By: Renard Burgos on 09-12-2022 Hematocrit (Bld) [Volume fraction] 40.2 % 40-54 [facility] Laboratory - Hematology and Cell countsOrdered By: Renard Burgos on 09-12-2022 Erythrocyte distribution width (RBC) [Entitic vol] 41.3 fL 35.1-43.9 [facility] Erythrocyte distribution width (RBC) [Ratio] 12.5 % 11.6-14.6 [facility] Immature granulocytes/100 WBC (Bld) 0.300 % 0.0-0.9 [facility] Comment on above: IG% - Immature Granu locytes (promyelocytes, myelocytes and metamyelocytes) > 1% indicates that a LEFT SHIFT is Present. MCH (RBC) [Entitic mass] 30.7 pg 27.0-32.0 [facility] Nucleated RBC/100 WBC (Bld) [Ratio] 0 % 0-5 [facility] MCHC Auto (RBC) [Mass/Vol]Or dered By: Renard Burgos on 09-12-2022 MCHC (RBC) [Mass/Vol] 33.6 g/dL 32-36 [facility] Platelets bldOrdered By: Lyubov Burgos on 09-12-2022 Platelets (Bld) [#/Vol] 197 10*3/uL 150-450 [facility] Absolute lymphocyte countOrd ered By: Renard Burgos on 09-05-2022 Lymphocytes Auto (Unsp spec) [#/Vol] 1.94 10*3/uL 0.83-4.51 [facility] Basophil percentageOrdered B y: Renard Burgos on 09-05-2022 Basophils/100 WBC (Bld) 0.5 % 0-1 [facility] Cholesterol [Mass/Vol] 136 mg/dL <200 [facility] Comment on above: <200 mg/dL Desirable 200-240 mg/dL Borderline >240 mg/dL High Risk Eosinophils/100 WBC (Bld) 0.4 % 0-5 [facility] Neutrophils (Bld) [#/Vol] 5.4 10*3/uL 2.0-7.7 [facility] Neutrophils/100 WBC (Bld) 67.5 % 47-70 [facility] Triglyceride [Mass/Vol] 304 mg/dL <199 [facility] Comment on above: The drugs N-Acetylcy steine and Metamizole may falsely depress this assay.Serum Triglycerides Reference Interval Normal <150 mg/dL Borderline high 150 - 199 mg/dL High 200 - 499 mg/dL Very High > or = 500 mg/dL WBC (Bld) [#/Vol] 7.9 10*3/uL 4.4-11.0 [facility] Blood erythrocytes count (nu mber/volume)Ordered By: Renard Burgos on 09-05-2022 RBC (Bld) [#/Vol] 4.28 10*6/uL 4.6-6.2 [facility] Blood hemoglobin measurement (mass/volume)Ordered By: Renard Burgos on 09-05-2022 Hemoglobin (Bld) [Mass/Vol] 12.9 g/dL 13.0-16.5 [facility] Blood lymphocytes/100 leukoc ytesOrdered By: Renard Burgos on 09-05-2022 Lymphocytes/100 WBC (Bld) 24.5 % 19-41 [facility] Blood monocytes/100 leukocyt esOrdered By: Renard Burgos on 09-05-2022 Monocytes/100 WBC (Bld) 6.6 % 0-10 [facility] Blood platelet mean volumeOr dered By: Renard Burgos on 09-05-2022 Platelet mean volume (Bld) [Entitic vol] 10.7 fL 6.2-12.0 [facility] Determination of erythrocyte mean corpuscular volume (MCV)Ordered By: Renard Burgos on 09-05-2022 MCV (RBC) [Entitic vol] 91.4 fL 80-94 [facility] Hematocrit Auto (Bld) [Volum e fraction]Ordered By: Renard Burgos on 09-05-2022 Hematocrit (Bld) [Volume fraction] 39.1 % 40-54 [facility] Laboratory - Hematology and Cell countsOrdered By: Renard Burgos on 09-05-2022 Erythrocyte distribution width (RBC) [Entitic vol] 41.5 fL 35.1-43.9 [facility] Erythrocyte distribution width (RBC) [Ratio] 12.6 % 11.6-14.6 [facility] Immature granulocytes/100 WBC (Bld) 0.500 % 0.0-0.9 [facility] Comment on above: IG% - Immature Granu locytes (promyelocytes, myelocytes and metamyelocytes) > 1% indicates that a LEFT SHIFT is Present. MCH (RBC) [Entitic mass] 30.1 pg 27.0-32.0 [facility] Nucleated RBC/100 WBC (Bld) [Ratio] 0 % 0-5 [facility] MCHC Auto (RBC) [Mass/Vol]Or dered By: Renard Burgos on 09-05-2022 MCHC (RBC) [Mass/Vol] 33.0 g/dL 32-36 [facility] Platelets bldOrdered By: Lyubov Burgos on 09-05-2022 Platelets (Bld) [#/Vol] 200 10*3/uL 150-450 [facility] Serum or plasma cholesterol in HDL measurement (mass/volume)Ordered By: Renard Burgos on 09-05-2022 Cholesterol in HDL [Mass/Vol] 24 mg/dL >40 [facility] Comment on above: The drugs N-Acetylcy steine and Metamizole may falsely depress this assay. Reference Range HDL <40 mg/dL Low HDL Cholesterol HDL >or= 60 mg/dL High HDL Cholesterol Serum or plasma cholesterol in VLDL measurement (mass/volume)Ordered By: Renard Burgos on 09-05-2022 Cholesterol in VLDL [Mass/Vol] 61 mg/dL 5-40 [facility] Serum or plasma low density lipoprotein (LDL) cholesterol measurement (mass/volume)Ordered By: Renard Burgos on 09-05-2022 Cholesterol in LDL [Mass/Vol] 51 mg/dL 0-130 [facility] Absolute lymphocyte countOrd ered By: Renard Burgos on 08-29-2022 Lymphocytes Auto (Unsp spec) [#/Vol] 1.91 10*3/uL 0.83-4.51 [facility] Basophil percentageOrdered B y: Renard Burgos on 08-29-2022 Basophils/100 WBC (Bld) 0.4 % 0-1 [facility] Eosinophils/100 WBC (Bld) 0.4 % 0-5 [facility] Neutrophils (Bld) [#/Vol] 4.8 10*3/uL 2.0-7.7 [facility] Neutrophils/100 WBC (Bld) 66.0 % 47-70 [facility] WBC (Bld) [#/Vol] 7.3 10*3/uL 4.4-11.0 [facility] Blood erythrocytes count (nu mber/volume)Ordered By: Renard Burgos on 08-29-2022 RBC (Bld) [#/Vol] 4.43 10*6/uL 4.6-6.2 [facility] Blood hemoglobin measurement (mass/volume)Ordered By: Renard Burgos on 08-29-2022 Hemoglobin (Bld) [Mass/Vol] 13.6 g/dL 13.0-16.5 [facility] Blood lymphocytes/100 leukoc ytesOrdered By: Renard Burgos on 08-29-2022 Lymphocytes/100 WBC (Bld) 26.2 % 19-41 [facility] Blood monocytes/100 leukocyt esOrdered By: Renard Burgos on 08-29-2022 Monocytes/100 WBC (Bld) 6.6 % 0-10 [facility] Blood platelet mean volumeOr dered By: Renard Burgos on 08-29-2022 Platelet mean volume (Bld) [Entitic vol] 11.0 fL 6.2-12.0 [facility] Determination of erythrocyte mean corpuscular volume (MCV)Ordered By: Renard Brugos on 08-29-2022 MCV (RBC) [Entitic vol] 92.1 fL 80-94 [facility] Hematocrit Auto (Bld) [Volum e fraction]Ordered By: Renard Burgos on 08-29-2022 Hematocrit (Bld) [Volume fraction] 40.8 % 40-54 [facility] Laboratory - Hematology and Cell countsOrdered By: Renard Burgos on 08-29-2022 Erythrocyte distribution width (RBC) [Entitic vol] 42.0 fL 35.1-43.9 [facility] Erythrocyte distribution width (RBC) [Ratio] 12.4 % 11.6-14.6 [facility] Immature granulocytes/100 WBC (Bld) 0.400 % 0.0-0.9 [facility] Comment on above: IG% - Immature Granu locytes (promyelocytes, myelocytes and metamyelocytes) > 1% indicates that a LEFT SHIFT is Present. MCH (RBC) [Entitic mass] 30.7 pg 27.0-32.0 [facility] Nucleated RBC/100 WBC (Bld) [Ratio] 0 % 0-5 [facility] MCHC Auto (RBC) [Mass/Vol]Or dered By: Renard Burgos on 08-29-2022 MCHC (RBC) [Mass/Vol] 33.3 g/dL 32-36 [facility] Platelets bldOrdered By: Lyubov Burgos on 08-29-2022 Platelets (Bld) [#/Vol] 195 10*3/uL 150-450 [facility] Absolute lymphocyte countOrd ered By: Renard Burgos on 08-22-2022 Lymphocytes Auto (Unsp spec) [#/Vol] 1.86 10*3/uL 0.83-4.51 [facility] Basophil percentageOrdered B y: Renard Burgos on 08-22-2022 Basophils/100 WBC (Bld) 0.4 % 0-1 [facility] Eosinophils/100 WBC (Bld) 0.4 % 0-5 [facility] Neutrophils (Bld) [#/Vol] 6.5 10*3/uL 2.0-7.7 [facility] Neutrophils/100 WBC (Bld) 70.5 % 47-70 [facility] WBC (Bld) [#/Vol] 9.3 10*3/uL 4.4-11.0 [facility] Blood erythrocytes count (nu mber/volume)Ordered By: Renard Burgos on 08-22-2022 RBC (Bld) [#/Vol] 4.55 10*6/uL 4.6-6.2 [facility] Blood hemoglobin measurement (mass/volume)Ordered By: Renard Burgos on 08-22-2022 Hemoglobin (Bld) [Mass/Vol] 14.1 g/dL 13.0-16.5 [facility] Blood lymphocytes/100 leukoc ytesOrdered By: Renard Burgos on 08-22-2022 Lymphocytes/100 WBC (Bld) 20.1 % 19-41 [facility] Blood monocytes/100 leukocyt esOrdered By: Renard Burgos on 08-22-2022 Monocytes/100 WBC (Bld) 8.3 % 0-10 [facility] Blood platelet mean volumeOr dered By: Renard Burgos on 08-22-2022 Platelet mean volume (Bld) [Entitic vol] 10.8 fL 6.2-12.0 [facility] Determination of erythrocyte mean corpuscular volume (MCV)Ordered By: Renard Burgos on 08-22-2022 MCV (RBC) [Entitic vol] 91.9 fL 80-94 [facility] Hematocrit Auto (Bld) [Volum e fraction]Ordered By: Renard Burgos on 08-22-2022 Hematocrit (Bld) [Volume fraction] 41.8 % 40-54 [facility] Laboratory - Hematology and Cell countsOrdered By: Renard Burgos on 08-22-2022 Erythrocyte distribution width (RBC) [Entitic vol] 42.5 fL 35.1-43.9 [facility] Erythrocyte distribution width (RBC) [Ratio] 12.6 % 11.6-14.6 [facility] Immature granulocytes/100 WBC (Bld) 0.300 % 0.0-0.9 [facility] Comment on above: IG% - Immature Granu locytes (promyelocytes, myelocytes and metamyelocytes) > 1% indicates that a LEFT SHIFT is Present. MCH (RBC) [Entitic mass] 31.0 pg 27.0-32.0 [facility] Nucleated RBC/100 WBC (Bld) [Ratio] 0 % 0-5 [facility] MCHC Auto (RBC) [Mass/Vol]Or dered By: Renard Burgos on 08-22-2022 MCHC (RBC) [Mass/Vol] 33.7 g/dL 32-36 [facility] Platelets bldOrdered By: Lyubov Burgos on 08-22-2022 Platelets (Bld) [#/Vol] 197 10*3/uL 150-450 [facility] Absolute lymphocyte countOrd ered By: Renard Bugros on 08-15-2022 Lymphocytes Auto (Unsp spec) [#/Vol] 1.88 10*3/uL 0.83-4.51 [facility] Basophil percentageOrdered B y: Renard Burgos on 08-15-2022 Basophils/100 WBC (Bld) 0.5 % 0-1 [facility] Eosinophils/100 WBC (Bld) 0.5 % 0-5 [facility] Neutrophils (Bld) [#/Vol] 5.1 10*3/uL 2.0-7.7 [facility] Neutrophils/100 WBC (Bld) 65.0 % 47-70 [facility] WBC (Bld) [#/Vol] 7.9 10*3/uL 4.4-11.0 [facility] Blood erythrocytes count (nu mber/volume)Ordered By: Renard Burgos on 08-15-2022 RBC (Bld) [#/Vol] 4.48 10*6/uL 4.6-6.2 [facility] Blood hemoglobin measurement (mass/volume)Ordered By: Renard Burgos on 08-15-2022 Hemoglobin (Bld) [Mass/Vol] 13.7 g/dL 13.0-16.5 [facility] Blood lymphocytes/100 leukoc ytesOrdered By: Renard Burgos on 08-15-2022 Lymphocytes/100 WBC (Bld) 23.9 % 19-41 [facility] Blood monocytes/100 leukocyt esOrdered By: Renard Burgos on 08-15-2022 Monocytes/100 WBC (Bld) 9.8 % 0-10 [facility] Blood platelet mean volumeOr dered By: Renard Burgos on 08-15-2022 Platelet mean volume (Bld) [Entitic vol] 10.7 fL 6.2-12.0 [facility] Determination of erythrocyte mean corpuscular volume (MCV)Ordered By: Renard Burgos on 08-15-2022 MCV (RBC) [Entitic vol] 91.1 fL 80-94 [facility] Hematocrit Auto (Bld) [Volum e fraction]Ordered By: Renard Burgos on 08-15-2022 Hematocrit (Bld) [Volume fraction] 40.8 % 40-54 [facility] - Hematology and Cell countsOrdered By: Renard Burgos on 08-15-2022 Erythrocyte distribution width (RBC) [Entitic vol] 41.0 fL 35.1-43.9 [facility] Erythrocyte distribution width (RBC) [Ratio] 12.4 % 11.6-14.6 [facility] Immature granulocytes/100 WBC (Bld) 0.300 % 0.0-0.9 [facility] Comment on above: IG% - Immature Granu locytes (promyelocytes, myelocytes and metamyelocytes) > 1% indicates that a LEFT SHIFT is Present. MCH (RBC) [Entitic mass] 30.6 pg 27.0-32.0 [facility] Nucleated RBC/100 WBC (Bld) [Ratio] 0 % 0-5 [facility] MCHC Auto (RBC) [Mass/Vol]Or dered By: Renard Burgos on 08-15-2022 MCHC (RBC) [Mass/Vol] 33.6 g/dL 32-36 [facility] Platelets bldOrdered By: Lyubov Burgos on 08-15-2022 Platelets (Bld) [#/Vol] 212 10*3/uL 150-450 [facility] Absolute lymphocyte countOrd ered By: Renard Burgos on 08-08-2022 Lymphocytes Auto (Unsp spec) [#/Vol] 1.96 10*3/uL 0.83-4.51 [facility] Basophil percentageOrdered B y: Renard Burgos on 08-08-2022 Basophils/100 WBC (Bld) 0.5 % 0-1 [facility] Eosinophils/100 WBC (Bld) 0.5 % 0-5 [facility] Neutrophils (Bld) [#/Vol] 4.7 10*3/uL 2.0-7.7 [facility] Neutrophils/100 WBC (Bld) 64.1 % 47-70 [facility] WBC (Bld) [#/Vol] 7.4 10*3/uL 4.4-11.0 [facility] Blood erythrocytes count (nu mber/volume)Ordered By: Renard Burgos on 08-08-2022 RBC (Bld) [#/Vol] 4.44 10*6/uL 4.6-6.2 [facility] Blood hemoglobin measurement (mass/volume)Ordered By: Renard Burgos on 08-08-2022 Hemoglobin (Bld) [Mass/Vol] 13.6 g/dL 13.0-16.5 [facility] Blood lymphocytes/100 leukoc ytesOrdered By: Renard Burgos on 08-08-2022 Lymphocytes/100 WBC (Bld) 26.5 % 19-41 [facility] Blood monocytes/100 leukocyt esOrdered By: Renard Burgos on 08-08-2022 Monocytes/100 WBC (Bld) 8.1 % 0-10 [facility] Blood platelet mean volumeOr dered By: Renard Burgos on 08-08-2022 Platelet mean volume (Bld) [Entitic vol] 10.8 fL 6.2-12.0 [facility] Determination of erythrocyte mean corpuscular volume (MCV)Ordered By: Renard Burgos on 08-08-2022 MCV (RBC) [Entitic vol] 91.7 fL 80-94 [facility] Hematocrit Auto (Bld) [Volum e fraction]Ordered By: Renard Burgos on 08-08-2022 Hematocrit (Bld) [Volume fraction] 40.7 % 40-54 [facility] - Hematology and Cell countsOrdered By: Renard Burgos on 08-08-2022 Erythrocyte distribution width (RBC) [Entitic vol] 42.7 fL 35.1-43.9 [facility] Erythrocyte distribution width (RBC) [Ratio] 12.6 % 11.6-14.6 [facility] Immature granulocytes/100 WBC (Bld) 0.300 % 0.0-0.9 [facility] Comment on above: IG% - Immature Granu locytes (promyelocytes, myelocytes and metamyelocytes) > 1% indicates that a LEFT SHIFT is Present. MCH (RBC) [Entitic mass] 30.6 pg 27.0-32.0 [facility] Nucleated RBC/100 WBC (Bld) [Ratio] 0 % 0-5 [facility] MCHC Auto (RBC) [Mass/Vol]Or dered By: Renard Burgos on 08-08-2022 MCHC (RBC) [Mass/Vol] 33.4 g/dL 32-36 [facility] Platelets bldOrdered By: Lyubov Burgos on 08-08-2022 Platelets (Bld) [#/Vol] 187 10*3/uL 150-450 [facility] Absolute lymphocyte countOrd ered By: Renard Burgos on 08-01-2022 Lymphocytes Auto (Unsp spec) [#/Vol] 2.09 10*3/uL 0.83-4.51 [facility] Basophil percentageOrdered B y: Renard Burgos on 08-01-2022 Basophils/100 WBC (Bld) 0.4 % 0-1 [facility] Eosinophils/100 WBC (Bld) 0.4 % 0-5 [facility] Neutrophils (Bld) [#/Vol] 6.6 10*3/uL 2.0-7.7 [facility] Neutrophils/100 WBC (Bld) 69.1 % 47-70 [facility] WBC (Bld) [#/Vol] 9.5 10*3/uL 4.4-11.0 [facility] Blood erythrocytes count (nu mber/volume)Ordered By: Renard Burgos on 08-01-2022 RBC (Bld) [#/Vol] 4.48 10*6/uL 4.6-6.2 [facility] Blood hemoglobin measurement (mass/volume)Ordered By: Renard Burgos on 08-01-2022 Hemoglobin (Bld) [Mass/Vol] 13.9 g/dL 13.0-16.5 [facility] Blood lymphocytes/100 leukoc ytesOrdered By: Renard Burgos on 08-01-2022 Lymphocytes/100 WBC (Bld) 21.9 % 19-41 [facility] Blood monocytes/100 leukocyt esOrdered By: Renard Burgos on 08-01-2022 Monocytes/100 WBC (Bld) 7.9 % 0-10 [facility] Blood platelet mean volumeOr dered By: Renard Burgos on 08-01-2022 Platelet mean volume (Bld) [Entitic vol] 11.0 fL 6.2-12.0 [facility] Determination of erythrocyte mean corpuscular volume (MCV)Ordered By: Renard Burgos on 08-01-2022 MCV (RBC) [Entitic vol] 91.5 fL 80-94 [facility] Hematocrit Auto (Bld) [Volum e fraction]Ordered By: Renard Burgos on 08-01-2022 Hematocrit (Bld) [Volume fraction] 41.0 % 40-54 [facility] - Hematology and Cell countsOrdered By: Renard Burgos on 08-01-2022 Erythrocyte distribution width (RBC) [Entitic vol] 41.6 fL 35.1-43.9 [facility] Erythrocyte distribution width (RBC) [Ratio] 12.5 % 11.6-14.6 [facility] Immature granulocytes/100 WBC (Bld) 0.300 % 0.0-0.9 [facility] Comment on above: IG% - Immature Granu locytes (promyelocytes, myelocytes and metamyelocytes) > 1% indicates that a LEFT SHIFT is Present. MCH (RBC) [Entitic mass] 31.0 pg 27.0-32.0 [facility] Nucleated RBC/100 WBC (Bld) [Ratio] 0 % 0-5 [facility] MCHC Auto (RBC) [Mass/Vol]Or dered By: Renard Burgos on 08-01-2022 MCHC (RBC) [Mass/Vol] 33.9 g/dL 32-36 [facility] Platelets bldOrdered By: Lyubov shirley Loretta on 08-01-2022 Platelets (Bld) [#/Vol] 208 10*3/uL 150-450 [facility] Absolute lymphocyte countOrd ered By: Renard Burgos on 07-25-2022 Lymphocytes Auto (Unsp spec) [#/Vol] 2.16 10*3/uL 0.83-4.51 [facility] Basophil percentageOrdered B y: Renard Burgos on 07-25-2022 Basophils/100 WBC (Bld) 0.6 % 0-1 [facility] Eosinophils/100 WBC (Bld) 0.6 % 0-5 [facility] Neutrophils (Bld) [#/Vol] 5.4 10*3/uL 2.0-7.7 [facility] Neutrophils/100 WBC (Bld) 64.5 % 47-70 [facility] WBC (Bld) [#/Vol] 8.4 10*3/uL 4.4-11.0 [facility] Blood erythrocytes count (nu mber/volume)Ordered By: Renard Burgos on 07-25-2022 RBC (Bld) [#/Vol] 4.45 10*6/uL 4.6-6.2 [facility] Blood hemoglobin measurement (mass/volume)Ordered By: Renard Burgos on 07-25-2022 Hemoglobin (Bld) [Mass/Vol] 13.4 g/dL 13.0-16.5 [facility] Blood lymphocytes/100 leukoc ytesOrdered By: Renard Burgos on 07-25-2022 Lymphocytes/100 WBC (Bld) 25.7 % 19-41 [facility] Blood monocytes/100 leukocyt esOrdered By: Renard Burgos on 07-25-2022 Monocytes/100 WBC (Bld) 8.4 % 0-10 [facility] Blood platelet mean volumeOr dered By: Renard Burgos on 07-25-2022 Platelet mean volume (Bld) [Entitic vol] 11.0 fL 6.2-12.0 [facility] Determination of erythrocyte mean corpuscular volume (MCV)Ordered By: Renard Burgos on 07-25-2022 MCV (RBC) [Entitic vol] 92.8 fL 80-94 [facility] Hematocrit Auto (Bld) [Volum e fraction]Ordered By: Renard Burgos on 07-25-2022 Hematocrit (Bld) [Volume fraction] 41.3 % 40-54 [facility] - Hematology and Cell countsOrdered By: Renard Burgos on 07-25-2022 Erythrocyte distribution width (RBC) [Entitic vol] 42.5 fL 35.1-43.9 [facility] Erythrocyte distribution width (RBC) [Ratio] 12.5 % 11.6-14.6 [facility] Immature granulocytes/100 WBC (Bld) 0.200 % 0.0-0.9 [facility] Comment on above: IG% - Immature Granu locytes (promyelocytes, myelocytes and metamyelocytes) > 1% indicates that a LEFT SHIFT is Present. MCH (RBC) [Entitic mass] 30.1 pg 27.0-32.0 [facility] Nucleated RBC/100 WBC (Bld) [Ratio] 0 % 0-5 [facility] MCHC Auto (RBC) [Mass/Vol]Or dered By: Renard Burgos on 07-25-2022 MCHC (RBC) [Mass/Vol] 32.4 g/dL 32-36 [facility] Platelets bldOrdered By: Lyubov Burgos on 07-25-2022 Platelets (Bld) [#/Vol] 200 10*3/uL 150-450 [facility] No Panel InformationOrdered By: Renadr Burgos on 07-19-2022 Vitamin D 25-Hydroxy 34.2 ng/mL [facility] Comment on above: Vitamin D 25(OH) Sta tus Range Deficiency <20 ng/mL (50nmol/L) Insufficiency 20 - 30 ng/mL (50 - 75 nmol/L) Sufficiency 30 - 100 ng/mL (75 - 250 nmol/L) Toxicity >100 ng/mL (>250 nmol/L) Absolute lymphocyte countOrd ered By: Renard Burgos on 07-18-2022 Lymphocytes Auto (Unsp spec) [#/Vol] 2.48 10*3/uL 0.83-4.51 [facility] Basophil percentageOrdered B y: Renard Burgos on 07-18-2022 Basophils/100 WBC (Bld) 0.5 % 0-1 [facility] Eosinophils/100 WBC (Bld) 0.6 % 0-5 [facility] Neutrophils (Bld) [#/Vol] 5.9 10*3/uL 2.0-7.7 [facility] Neutrophils/100 WBC (Bld) 61.6 % 47-70 [facility] WBC (Bld) [#/Vol] 9.6 10*3/uL 4.4-11.0 [facility] Blood erythrocytes count (nu mber/volume)Ordered By: Renard Burgos on 07-18-2022 RBC (Bld) [#/Vol] 4.56 10*6/uL 4.6-6.2 [facility] Blood hemoglobin measurement (mass/volume)Ordered By: Renard Burgos on 07-18-2022 Hemoglobin (Bld) [Mass/Vol] 13.9 g/dL 13.0-16.5 [facility] Blood lymphocytes/100 leukoc ytesOrdered By: Renard Burgos on 07-18-2022 Lymphocytes/100 WBC (Bld) 25.9 % 19-41 [facility] Blood monocytes/100 leukocyt esOrdered By: Renard Burgos on 07-18-2022 Monocytes/100 WBC (Bld) 11.0 % 0-10 [facility] Blood platelet mean volumeOr dered By: Renard Burgos on 07-18-2022 Platelet mean volume (Bld) [Entitic vol] 11.3 fL 6.2-12.0 [facility] Determination of erythrocyte mean corpuscular volume (MCV)Ordered By: Renard Burgos on 07-18-2022 MCV (RBC) [Entitic vol] 93.9 fL 80-94 [facility] Hematocrit Auto (Bld) [Volum e fraction]Ordered By: Renard Burgos on 07-18-2022 Hematocrit (Bld) [Volume fraction] 42.8 % 40-54 [facility] - Hematology and Cell countsOrdered By: Renard Burgos on 07-18-2022 Erythrocyte distribution width (RBC) [Entitic vol] 44.0 fL 35.1-43.9 [facility] Erythrocyte distribution width (RBC) [Ratio] 12.8 % 11.6-14.6 [facility] Immature granulocytes/100 WBC (Bld) 0.400 % 0.0-0.9 [facility] Comment on above: IG% - Immature Granu locytes (promyelocytes, myelocytes and metamyelocytes) > 1% indicates that a LEFT SHIFT is Present. MCH (RBC) [Entitic mass] 30.5 pg 27.0-32.0 [facility] Nucleated RBC/100 WBC (Bld) [Ratio] 0 % 0-5 [facility] MCHC Auto (RBC) [Mass/Vol]Or dered By: Renard Burgos on 07-18-2022 MCHC (RBC) [Mass/Vol] 32.5 g/dL 32-36 [facility] Platelets bldOrdered By: Lyubov Burgos on 07-18-2022 Platelets (Bld) [#/Vol] 207 10*3/uL 150-450 [facility] Absolute lymphocyte countOrd ered By: Renard Burgos on 07-11-2022 Lymphocytes Auto (Unsp spec) [#/Vol] 2.37 10*3/uL 0.83-4.51 [facility] Basophil percentageOrdered B y: Renard Burgos on 07-11-2022 Basophils/100 WBC (Bld) 0.6 % 0-1 [facility] Eosinophils/100 WBC (Bld) 0.5 % 0-5 [facility] Neutrophils (Bld) [#/Vol] 5.3 10*3/uL 2.0-7.7 [facility] Neutrophils/100 WBC (Bld) 61.8 % 47-70 [facility] WBC (Bld) [#/Vol] 8.5 10*3/uL 4.4-11.0 [facility] Blood erythrocytes count (nu mber/volume)Ordered By: Renard Burgos on 07-11-2022 RBC (Bld) [#/Vol] 4.83 10*6/uL 4.6-6.2 [facility] Blood hemoglobin measurement (mass/volume)Ordered By: Renard Burgos on 07-11-2022 Hemoglobin (Bld) [Mass/Vol] 14.7 g/dL 13.0-16.5 [facility] Blood lymphocytes/100 leukoc ytesOrdered By: Renard Burgos on 07-11-2022 Lymphocytes/100 WBC (Bld) 27.8 % 19-41 [facility] Blood monocytes/100 leukocyt esOrdered By: Renard Burgos on 07-11-2022 Monocytes/100 WBC (Bld) 8.8 % 0-10 [facility] Blood platelet mean volumeOr dered By: Renard Burgos on 07-11-2022 Platelet mean volume (Bld) [Entitic vol] 10.6 fL 6.2-12.0 [facility] Determination of erythrocyte mean corpuscular volume (MCV)Ordered By: Renard Burgos on 07-11-2022 MCV (RBC) [Entitic vol] 90.7 fL 80-94 [facility] Hematocrit Auto (Bld) [Volum e fraction]Ordered By: Renard Burgos on 07-11-2022 Hematocrit (Bld) [Volume fraction] 43.8 % 40-54 [facility] - Hematology and Cell countsOrdered By: Renard Burgos on 07-11-2022 Erythrocyte distribution width (RBC) [Entitic vol] 41.2 fL 35.1-43.9 [facility] Erythrocyte distribution width (RBC) [Ratio] 12.7 % 11.6-14.6 [facility] Immature granulocytes/100 WBC (Bld) 0.500 % 0.0-0.9 [facility] Comment on above: IG% - Immature Granu locytes (promyelocytes, myelocytes and metamyelocytes) > 1% indicates that a LEFT SHIFT is Present. MCH (RBC) [Entitic mass] 30.4 pg 27.0-32.0 [facility] Nucleated RBC/100 WBC (Bld) [Ratio] 0 % 0-5 [facility] MCHC Auto (RBC) [Mass/Vol]Or dered By: Renard Burgos on 07-11-2022 MCHC (RBC) [Mass/Vol] 33.6 g/dL 32-36 [facility] Platelets bldOrdered By: Lyubov Burgos on 07-11-2022 Platelets (Bld) [#/Vol] 207 10*3/uL 150-450 [facility] Absolute lymphocyte countOrd ered By: Renard Burgos on 07-04-2022 Lymphocytes Auto (Unsp spec) [#/Vol] 1.87 10*3/uL 0.83-4.51 [facility] Basophil percentageOrdered B y: Renard Burgos on 07-04-2022 Basophils/100 WBC (Bld) 0.4 % 0-1 [facility] Eosinophils/100 WBC (Bld) 0.5 % 0-5 [facility] Neutrophils (Bld) [#/Vol] 7.5 10*3/uL 2.0-7.7 [facility] Neutrophils/100 WBC (Bld) 72.8 % 47-70 [facility] WBC (Bld) [#/Vol] 10.3 10*3/uL 4.4-11.0 [facility] Blood erythrocytes count (nu mber/volume)Ordered By: Renard Burgos on 07-04-2022 RBC (Bld) [#/Vol] 4.45 10*6/uL 4.6-6.2 [facility] Blood hemoglobin measurement (mass/volume)Ordered By: Renard Burgos on 07-04-2022 Hemoglobin (Bld) [Mass/Vol] 13.5 g/dL 13.0-16.5 [facility] Blood lymphocytes/100 leukoc ytesOrdered By: Renard Burgos on 07-04-2022 Lymphocytes/100 WBC (Bld) 18.1 % 19-41 [facility] Blood monocytes/100 leukocyt esOrdered By: Renard Burgos on 07-04-2022 Monocytes/100 WBC (Bld) 7.7 % 0-10 [facility] Blood platelet mean volumeOr dered By: Renard Burgos on 07-04-2022 Platelet mean volume (Bld) [Entitic vol] 11.3 fL 6.2-12.0 [facility] Determination of erythrocyte mean corpuscular volume (MCV)Ordered By: Renard Burgos on 07-04-2022 MCV (RBC) [Entitic vol] 93.0 fL 80-94 [facility] Hematocrit Auto (Bld) [Volum e fraction]Ordered By: Renard Burgos on 07-04-2022 Hematocrit (Bld) [Volume fraction] 41.4 % 40-54 [facility] - Hematology and Cell countsOrdered By: Renard Burgos on 07-04-2022 Erythrocyte distribution width (RBC) [Entitic vol] 43.0 fL 35.1-43.9 [facility] Erythrocyte distribution width (RBC) [Ratio] 12.5 % 11.6-14.6 [facility] Immature granulocytes/100 WBC (Bld) 0.500 % 0.0-0.9 [facility] Comment on above: IG% - Immature Granu locytes (promyelocytes, myelocytes and metamyelocytes) > 1% indicates that a LEFT SHIFT is Present. MCH (RBC) [Entitic mass] 30.3 pg 27.0-32.0 [facility] Nucleated RBC/100 WBC (Bld) [Ratio] 0 % 0-5 [facility] MCHC Auto (RBC) [Mass/Vol]Or dered By: Renard Burgos on 07-04-2022 MCHC (RBC) [Mass/Vol] 32.6 g/dL 32-36 [facility] Platelets bldOrdered By: Lyubov Burgos on 07-04-2022 Platelets (Bld) [#/Vol] 211 10*3/uL 150-450 [facility] Absolute lymphocyte countOrd ered By: Renard Burgos on 06-27-2022 Lymphocytes Auto (Unsp spec) [#/Vol] 1.83 10*3/uL 0.83-4.51 [facility] Basophil percentageOrdered B y: Renard Burgos on 06-27-2022 Basophils/100 WBC (Bld) 0.4 % 0-1 [facility] Eosinophils/100 WBC (Bld) 0.5 % 0-5 [facility] Neutrophils (Bld) [#/Vol] 5.0 10*3/uL 2.0-7.7 [facility] Neutrophils/100 WBC (Bld) 67.6 % 47-70 [facility] WBC (Bld) [#/Vol] 7.4 10*3/uL 4.4-11.0 [facility] Blood erythrocytes count (nu mber/volume)Ordered By: Renard Burgos on 06-27-2022 RBC (Bld) [#/Vol] 4.52 10*6/uL 4.6-6.2 [facility] Blood hemoglobin measurement (mass/volume)Ordered By: Renard Burgos on 06-27-2022 Hemoglobin (Bld) [Mass/Vol] 13.9 g/dL 13.0-16.5 [facility] Blood lymphocytes/100 leukoc ytesOrdered By: Renard Burgos on 06-27-2022 Lymphocytes/100 WBC (Bld) 24.7 % 19-41 [facility] Blood monocytes/100 leukocyt esOrdered By: Renard Burgos on 06-27-2022 Monocytes/100 WBC (Bld) 6.4 % 0-10 [facility] Blood platelet mean volumeOr dered By: Renard Burgos on 06-27-2022 Platelet mean volume (Bld) [Entitic vol] 10.7 fL 6.2-12.0 [facility] Determination of erythrocyte mean corpuscular volume (MCV)Ordered By: Renard Burgos on 06-27-2022 MCV (RBC) [Entitic vol] 91.2 fL 80-94 [facility] Hematocrit Auto (Bld) [Volum e fraction]Ordered By: Renard Burgos on 06-27-2022 Hematocrit (Bld) [Volume fraction] 41.2 % 40-54 [facility] Laboratory - Hematology and Cell countsOrdered By: Renard Burgos on 06-27-2022 Erythrocyte distribution width (RBC) [Entitic vol] 41.9 fL 35.1-43.9 [facility] Erythrocyte distribution width (RBC) [Ratio] 12.7 % 11.6-14.6 [facility] Immature granulocytes/100 WBC (Bld) 0.400 % 0.0-0.9 [facility] Comment on above: IG% - Immature Granu locytes (promyelocytes, myelocytes and metamyelocytes) > 1% indicates that a LEFT SHIFT is Present. MCH (RBC) [Entitic mass] 30.8 pg 27.0-32.0 [facility] Nucleated RBC/100 WBC (Bld) [Ratio] 0 % 0-5 [facility] MCHC Auto (RBC) [Mass/Vol]Or dered By: Renard Burgos on 06-27-2022 MCHC (RBC) [Mass/Vol] 33.7 g/dL 32-36 [facility] Platelets bldOrdered By: Lyubov shirley Loretta on 06-27-2022 Platelets (Bld) [#/Vol] 200 10*3/uL 150-450 [facility] Absolute lymphocyte countOrd ered By: Renard Burgos on 06-20-2022 Lymphocytes Auto (Unsp spec) [#/Vol] 1.57 10*3/uL 0.83-4.51 [facility] Basophil percentageOrdered B y: Renard Burgos on 06-20-2022 Basophils/100 WBC (Bld) 0.2 % 0-1 [facility] Eosinophils/100 WBC (Bld) 0.2 % 0-5 [facility] Neutrophils (Bld) [#/Vol] 6.5 10*3/uL 2.0-7.7 [facility] Neutrophils/100 WBC (Bld) 74.5 % 47-70 [facility] WBC (Bld) [#/Vol] 8.8 10*3/uL 4.4-11.0 [facility] Blood erythrocytes count (nu mber/volume)Ordered By: Renard Burgos on 06-20-2022 RBC (Bld) [#/Vol] 4.79 10*6/uL 4.6-6.2 [facility] Blood hemoglobin measurement (mass/volume)Ordered By: Renard Burgos on 06-20-2022 Hemoglobin (Bld) [Mass/Vol] 14.6 g/dL 13.0-16.5 [facility] Blood lymphocytes/100 leukoc ytesOrdered By: Renard Burgos on 06-20-2022 Lymphocytes/100 WBC (Bld) 17.8 % 19-41 [facility] Blood monocytes/100 leukocyt esOrdered By: Renard Burgos on 06-20-2022 Monocytes/100 WBC (Bld) 7.0 % 0-10 [facility] Blood platelet mean volumeOr dered By: Renard Burgos on 06-20-2022 Platelet mean volume (Bld) [Entitic vol] 11.1 fL 6.2-12.0 [facility] Determination of erythrocyte mean corpuscular volume (MCV)Ordered By: Renard Burgos on 06-20-2022 MCV (RBC) [Entitic vol] 92.1 fL 80-94 [facility] Hematocrit Auto (Bld) [Volum e fraction]Ordered By: Renard Burgos on 06-20-2022 Hematocrit (Bld) [Volume fraction] 44.1 % 40-54 [facility] Laboratory - Hematology and Cell countsOrdered By: Renard Burgos on 06-20-2022 Erythrocyte distribution width (RBC) [Entitic vol] 42.4 fL 35.1-43.9 [facility] Erythrocyte distribution width (RBC) [Ratio] 12.6 % 11.6-14.6 [facility] Immature granulocytes/100 WBC (Bld) 0.300 % 0.0-0.9 [facility] Comment on above: IG% - Immature Granu locytes (promyelocytes, myelocytes and metamyelocytes) > 1% indicates that a LEFT SHIFT is Present. MCH (RBC) [Entitic mass] 30.5 pg 27.0-32.0 [facility] Nucleated RBC/100 WBC (Bld) [Ratio] 0 % 0-5 [facility] MCHC Auto (RBC) [Mass/Vol]Or dered By: Renard Burgos on 06-20-2022 MCHC (RBC) [Mass/Vol] 33.1 g/dL 32-36 [facility] Platelets bldOrdered By: Lyubov Burgos on 06-20-2022 Platelets (Bld) [#/Vol] 207 10*3/uL 150-450 [facility] Absolute lymphocyte countOrd ered By: Renard Burgos on 06-13-2022 Lymphocytes Auto (Unsp spec) [#/Vol] 2.28 10*3/uL 0.83-4.51 [facility] Basophil percentageOrdered B y: Renard Burgos on 06-13-2022 Basophils/100 WBC (Bld) 0.5 % 0-1 [facility] Eosinophils/100 WBC (Bld) 0.4 % 0-5 [facility] Neutrophils (Bld) [#/Vol] 6.0 10*3/uL 2.0-7.7 [facility] Neutrophils/100 WBC (Bld) 65.6 % 47-70 [facility] WBC (Bld) [#/Vol] 9.2 10*3/uL 4.4-11.0 [facility] Blood erythrocytes count (nu mber/volume)Ordered By: Renard Burgos on 06-13-2022 RBC (Bld) [#/Vol] 4.55 10*6/uL 4.6-6.2 [facility] Blood hemoglobin measurement (mass/volume)Ordered By: Renard Burgos on 06-13-2022 Hemoglobin (Bld) [Mass/Vol] 13.7 g/dL 13.0-16.5 [facility] Blood lymphocytes/100 leukoc ytesOrdered By: Renard Burgos on 06-13-2022 Lymphocytes/100 WBC (Bld) 24.9 % 19-41 [facility] Blood monocytes/100 leukocyt esOrdered By: Renard Burgos on 06-13-2022 Monocytes/100 WBC (Bld) 8.2 % 0-10 [facility] Blood platelet mean volumeOr dered By: Renard Burgos on 06-13-2022 Platelet mean volume (Bld) [Entitic vol] 10.9 fL 6.2-12.0 [facility] Determination of erythrocyte mean corpuscular volume (MCV)Ordered By: Renard Burgos on 06-13-2022 MCV (RBC) [Entitic vol] 92.3 fL 80-94 [facility] Hematocrit Auto (Bld) [Volum e fraction]Ordered By: Renard Burgos on 06-13-2022 Hematocrit (Bld) [Volume fraction] 42.0 % 40-54 [facility] Laboratory - Hematology and Cell countsOrdered By: Renard Burgos on 06-13-2022 Erythrocyte distribution width (RBC) [Entitic vol] 43.2 fL 35.1-43.9 [facility] Erythrocyte distribution width (RBC) [Ratio] 12.8 % 11.6-14.6 [facility] Immature granulocytes/100 WBC (Bld) 0.400 % 0.0-0.9 [facility] Comment on above: IG% - Immature Granu locytes (promyelocytes, myelocytes and metamyelocytes) > 1% indicates that a LEFT SHIFT is Present. MCH (RBC) [Entitic mass] 30.1 pg 27.0-32.0 [facility] Nucleated RBC/100 WBC (Bld) [Ratio] 0 % 0-5 [facility] MCHC Auto (RBC) [Mass/Vol]Or dered By: Renard Burgos on 06-13-2022 MCHC (RBC) [Mass/Vol] 32.6 g/dL 32-36 [facility] Platelets bldOrdered By: Lyubov Burgos on 06-13-2022 Platelets (Bld) [#/Vol] 203 10*3/uL 150-450 [facility] Absolute lymphocyte countOrd ered By: Renard Burgos on 06-06-2022 Lymphocytes Auto (Unsp spec) [#/Vol] 2.02 10*3/uL 0.83-4.51 [facility] Basophil percentageOrdered B y: Renard Burgos on 06-06-2022 Basophils/100 WBC (Bld) 0.5 % 0-1 [facility] Eosinophils/100 WBC (Bld) 0.7 % 0-5 [facility] Neutrophils (Bld) [#/Vol] 4.7 10*3/uL 2.0-7.7 [facility] Neutrophils/100 WBC (Bld) 63.3 % 47-70 [facility] WBC (Bld) [#/Vol] 7.4 10*3/uL 4.4-11.0 [facility] Blood erythrocytes count (nu mber/volume)Ordered By: Renard Burgos on 06-06-2022 RBC (Bld) [#/Vol] 4.57 10*6/uL 4.6-6.2 [facility] Blood hemoglobin measurement (mass/volume)Ordered By: Renard Burgos on 06-06-2022 Hemoglobin (Bld) [Mass/Vol] 14.0 g/dL 13.0-16.5 [facility] Blood lymphocytes/100 leukoc ytesOrdered By: Renard Burgos on 06-06-2022 Lymphocytes/100 WBC (Bld) 27.2 % 19-41 [facility] Blood monocytes/100 leukocyt esOrdered By: Renard Burgos on 06-06-2022 Monocytes/100 WBC (Bld) 7.9 % 0-10 [facility] Blood platelet mean volumeOr dered By: Renard Burgos on 06-06-2022 Platelet mean volume (Bld) [Entitic vol] 10.7 fL 6.2-12.0 [facility] Determination of erythrocyte mean corpuscular volume (MCV)Ordered By: Renard Burgos on 06-06-2022 MCV (RBC) [Entitic vol] 90.2 fL 80-94 [facility] Hematocrit Auto (Bld) [Volum e fraction]Ordered By: Renard Burgos on 06-06-2022 Hematocrit (Bld) [Volume fraction] 41.2 % 40-54 [facility] Laboratory - Hematology and Cell countsOrdered By: Renard Burgos on 06-06-2022 Erythrocyte distribution width (RBC) [Entitic vol] 41.5 fL 35.1-43.9 [facility] Erythrocyte distribution width (RBC) [Ratio] 12.7 % 11.6-14.6 [facility] Immature granulocytes/100 WBC (Bld) 0.400 % 0.0-0.9 [facility] Comment on above: IG% - Immature Granu locytes (promyelocytes, myelocytes and metamyelocytes) > 1% indicates that a LEFT SHIFT is Present. MCH (RBC) [Entitic mass] 30.6 pg 27.0-32.0 [facility] Nucleated RBC/100 WBC (Bld) [Ratio] 0 % 0-5 [facility] MCHC Auto (RBC) [Mass/Vol]Or dered By: Renard Burgos on 06-06-2022 MCHC (RBC) [Mass/Vol] 34.0 g/dL 32-36 [facility] Platelets bldOrdered By: Lyubov Burgos on 06-06-2022 Platelets (Bld) [#/Vol] 197 10*3/uL 150-450 [facility] Absolute lymphocyte countOrd ered By: Renard Burgos on 05-30-2022 Lymphocytes Auto (Unsp spec) [#/Vol] 2.32 10*3/uL 0.83-4.51 [facility] Basophil percentageOrdered B y: Renard Burgos on 05-30-2022 Basophils/100 WBC (Bld) 0.4 % 0-1 [facility] Eosinophils/100 WBC (Bld) 0.5 % 0-5 [facility] Neutrophils (Bld) [#/Vol] 5.2 10*3/uL 2.0-7.7 [facility] Neutrophils/100 WBC (Bld) 62.6 % 47-70 [facility] WBC (Bld) [#/Vol] 8.3 10*3/uL 4.4-11.0 [facility] Blood erythrocytes count (nu mber/volume)Ordered By: Renard Burgos on 05-30-2022 RBC (Bld) [#/Vol] 4.87 10*6/uL 4.6-6.2 [facility] Blood hemoglobin measurement (mass/volume)Ordered By: Renard Burgos on 05-30-2022 Hemoglobin (Bld) [Mass/Vol] 14.6 g/dL 13.0-16.5 [facility] Blood lymphocytes/100 leukoc ytesOrdered By: Renard Burgos on 05-30-2022 Lymphocytes/100 WBC (Bld) 27.9 % 19-41 [facility] Blood monocytes/100 leukocyt esOrdered By: Renard Burgos on 05-30-2022 Monocytes/100 WBC (Bld) 8.0 % 0-10 [facility] Blood platelet mean volumeOr dered By: Renard Burgos on 05-30-2022 Platelet mean volume (Bld) [Entitic vol] 10.9 fL 6.2-12.0 [facility] Determination of erythrocyte mean corpuscular volume (MCV)Ordered By: Renard Burgos on 05-30-2022 MCV (RBC) [Entitic vol] 91.6 fL 80-94 [facility] Hematocrit Auto (Bld) [Volum e fraction]Ordered By: Renard Burgos on 05-30-2022 Hematocrit (Bld) [Volume fraction] 44.6 % 40-54 [facility] Laboratory - Hematology and Cell countsOrdered By: Renard Burgos on 05-30-2022 Erythrocyte distribution width (RBC) [Entitic vol] 42.4 fL 35.1-43.9 [facility] Erythrocyte distribution width (RBC) [Ratio] 12.6 % 11.6-14.6 [facility] Immature granulocytes/100 WBC (Bld) 0.600 % 0.0-0.9 [facility] Comment on above: IG% - Immature Granu locytes (promyelocytes, myelocytes and metamyelocytes) > 1% indicates that a LEFT SHIFT is Present. MCH (RBC) [Entitic mass] 30.0 pg 27.0-32.0 [facility] Nucleated RBC/100 WBC (Bld) [Ratio] 0 % 0-5 [facility] MCHC Auto (RBC) [Mass/Vol]Or dered By: Renard Burgos on 05-30-2022 MCHC (RBC) [Mass/Vol] 32.7 g/dL 32-36 [facility] Platelets bldOrdered By: Lyubov Burgos on 05-30-2022 Platelets (Bld) [#/Vol] 213 10*3/uL 150-450 [facility] Absolute lymphocyte countOrd ered By: Renard Burgos on 05-23-2022 Lymphocytes Auto (Unsp spec) [#/Vol] 2.07 10*3/uL 0.83-4.51 [facility] Basophil percentageOrdered B y: Renard Burgos on 05-23-2022 Basophils/100 WBC (Bld) 0.5 % 0-1 [facility] Eosinophils/100 WBC (Bld) 0.4 % 0-5 [facility] Neutrophils (Bld) [#/Vol] 5.7 10*3/uL 2.0-7.7 [facility] Neutrophils/100 WBC (Bld) 66.5 % 47-70 [facility] WBC (Bld) [#/Vol] 8.5 10*3/uL 4.4-11.0 [facility] Blood erythrocytes count (nu mber/volume)Ordered By: Renard Burgos on 05-23-2022 RBC (Bld) [#/Vol] 4.75 10*6/uL 4.6-6.2 [facility] Blood hemoglobin measurement (mass/volume)Ordered By: Renard Burgos on 05-23-2022 Hemoglobin (Bld) [Mass/Vol] 14.3 g/dL 13.0-16.5 [facility] Blood lymphocytes/100 leukoc ytesOrdered By: Renard Burgos on 05-23-2022 Lymphocytes/100 WBC (Bld) 24.4 % 19-41 [facility] Blood monocytes/100 leukocyt esOrdered By: Renard Burgos on 05-23-2022 Monocytes/100 WBC (Bld) 7.7 % 0-10 [facility] Blood platelet mean volumeOr dered By: Renard Burgos on 05-23-2022 Platelet mean volume (Bld) [Entitic vol] 11.1 fL 6.2-12.0 [facility] Determination of erythrocyte mean corpuscular volume (MCV)Ordered By: Renard Burgos on 05-23-2022 MCV (RBC) [Entitic vol] 90.9 fL 80-94 [facility] Hematocrit Auto (Bld) [Volum e fraction]Ordered By: Renard Burgos on 05-23-2022 Hematocrit (Bld) [Volume fraction] 43.2 % 40-54 [facility] Laboratory - Hematology and Cell countsOrdered By: Renard Burgos on 05-23-2022 Erythrocyte distribution width (RBC) [Entitic vol] 41.7 fL 35.1-43.9 [facility] Erythrocyte distribution width (RBC) [Ratio] 12.5 % 11.6-14.6 [facility] Immature granulocytes/100 WBC (Bld) 0.500 % 0.0-0.9 [facility] Comment on above: IG% - Immature Granu locytes (promyelocytes, myelocytes and metamyelocytes) > 1% indicates that a LEFT SHIFT is Present. MCH (RBC) [Entitic mass] 30.1 pg 27.0-32.0 [facility] Nucleated RBC/100 WBC (Bld) [Ratio] 0 % 0-5 [facility] MCHC Auto (RBC) [Mass/Vol]Or dered By: Renard Burgos on 05-23-2022 MCHC (RBC) [Mass/Vol] 33.1 g/dL 32-36 [facility] Platelets bldOrdered By: Lyubov Burgos on 05-23-2022 Platelets (Bld) [#/Vol] 213 10*3/uL 150-450 [facility] No Panel Informationon 05-20 Dejah Hazel DO 05/20/2022 7:32 PM Feeding Tube Replacement Performed by: Dejah Hazel DO Authorized by: Abelardo Rios DO Consent: Consent obtained: Verbal Consent given by: Patient [place] protocol: Patient identity confirmed: Verbally with patient [...] Procedure completion: Tolerated well, no immediate complications [facility] XR Abdomen Single viewon G-tube position is within the stomach. No evidence of contrast extravasation. Report Dictated on Electronically Signed By: Jason Tran Electronically Signed Date/Time: 05/20/2022 7:38 PM EST [id number] Patient Name: KATHYA HOOPER Exam Date/Time: 05/20/2022 19:18 Procedure: XR ABDOMEN 1 VIEW Ordering Provider: RIOS TYLER Reason For Exam: SUPINE ABDOMEN (KUB) CLINICAL INDICATION: confirm placement of G tube A supine plain film of the abdomen was obtained. Repeat abdominal radiographs following hand injection of enteric contrast via the patient's enteric tube. (Gastrografin 30 mL). COMPARISON: None FINDINGS: On the machine maintenance supervisor image, no dilated bowel loops are identified. Feeding tube overlies the epigastric region of the abdomen. On the postcontrast images, there is a small amount of enteric contrast in the stomach and contrast is present throughout the proximal duodenum. No extravasated contrast is evident. [facility] [employer] Jason Tran M D - 05/20/2022 [...] 30 mL). COMPARISON: None FINDINGS: On the machine maintenance supervisor image, no dilated bowel loops are [...] Electronically Signed Date/Time: 05/20/2022 7:38 PM EST [facility] dough Radiology Study observation (narrative) [employer] [facility] XR Abdomen Single viewOrdere d By: Jason Tran on 05-20-2022 [facility] dough Work Phone: Absolute lymphocyte countOrd ered By: Renard Burgos on 05-16-2022 Lymphocytes Auto (Unsp spec) [#/Vol] 2.06 10*3/uL 0.83-4.51 [facility] Basophil percentageOrdered B y: Renard Burgos on 05-16-2022 Basophils/100 WBC (Bld) 0.6 % 0-1 [facility] Eosinophils/100 WBC (Bld) 0.6 % 0-5 [facility] Neutrophils (Bld) [#/Vol] 4.4 10*3/uL 2.0-7.7 [facility] Neutrophils/100 WBC (Bld) 61.2 % 47-70 [facility] WBC (Bld) [#/Vol] 7.1 10*3/uL 4.4-11.0 [facility] Blood erythrocytes count (nu mber/volume)Ordered By: Renard Burgos on 05-16-2022 RBC (Bld) [#/Vol] 4.58 10*6/uL 4.6-6.2 [facility] Blood hemoglobin measurement (mass/volume)Ordered By: Renard Burgos on 05-16-2022 Hemoglobin (Bld) [Mass/Vol] 13.9 g/dL 13.0-16.5 [facility] Blood lymphocytes/100 leukoc ytesOrdered By: Renard Burgos on 05-16-2022 Lymphocytes/100 WBC (Bld) 29.0 % 19-41 [facility] Blood monocytes/100 leukocyt esOrdered By: Renard Burgos on 05-16-2022 Monocytes/100 WBC (Bld) 8.2 % 0-10 [facility] Blood platelet mean volumeOr dered By: Renard Burgos on 05-16-2022 Platelet mean volume (Bld) [Entitic vol] 11.1 fL 6.2-12.0 [facility] Determination of erythrocyte mean corpuscular volume (MCV)Ordered By: Renard Burgos on 05-16-2022 MCV (RBC) [Entitic vol] 91.5 fL 80-94 [facility] Hematocrit Auto (Bld) [Volum e fraction]Ordered By: Renard Burgos on 05-16-2022 Hematocrit (Bld) [Volume fraction] 41.9 % 40-54 [facility] Laboratory - Hematology and Cell countsOrdered By: Renard Burgos on 05-16-2022 Erythrocyte distribution width (RBC) [Entitic vol] 41.3 fL 35.1-43.9 [facility] Erythrocyte distribution width (RBC) [Ratio] 12.5 % 11.6-14.6 [facility] Immature granulocytes/100 WBC (Bld) 0.400 % 0.0-0.9 [facility] Comment on above: IG% - Immature Granu locytes (promyelocytes, myelocytes and metamyelocytes) > 1% indicates that a LEFT SHIFT is Present. MCH (RBC) [Entitic mass] 30.3 pg 27.0-32.0 [facility] Nucleated RBC/100 WBC (Bld) [Ratio] 0 % 0-5 [facility] MCHC Auto (RBC) [Mass/Vol]Or dered By: Renard Burgos on 05-16-2022 MCHC (RBC) [Mass/Vol] 33.2 g/dL 32-36 [facility] Platelets bldOrdered By: Lyubov uBrgos on 05-16-2022 Platelets (Bld) [#/Vol] 205 10*3/uL 150-450 [facility] Absolute lymphocyte countOrd ered By: Renard Burgos on 05-09-2022 Lymphocytes Auto (Unsp spec) [#/Vol] 1.92 10*3/uL 0.83-4.51 [facility] Basophil percentageOrdered B y: Renard Burgos on 05-09-2022 Basophils/100 WBC (Bld) 0.7 % 0-1 [facility] Eosinophils/100 WBC (Bld) 0.7 % 0-5 [facility] Neutrophils (Bld) [#/Vol] 4.3 10*3/uL 2.0-7.7 [facility] Neutrophils/100 WBC (Bld) 60.9 % 47-70 [facility] WBC (Bld) [#/Vol] 7.1 10*3/uL 4.4-11.0 [facility] Blood erythrocytes count (nu mber/volume)Ordered By: Renard Burgos on 05-09-2022 RBC (Bld) [#/Vol] 4.67 10*6/uL 4.6-6.2 [facility] Blood hemoglobin measurement (mass/volume)Ordered By: Renard Burgos on 05-09-2022 Hemoglobin (Bld) [Mass/Vol] 14.1 g/dL 13.0-16.5 [facility] Blood lymphocytes/100 leukoc ytesOrdered By: Renard Burgos on 05-09-2022 Lymphocytes/100 WBC (Bld) 27.2 % 19-41 [facility] Blood monocytes/100 leukocyt esOrdered By: Renard Burgos on 05-09-2022 Monocytes/100 WBC (Bld) 10.2 % 0-10 [facility] Blood platelet mean volumeOr dered By: Renard Burgos on 05-09-2022 Platelet mean volume (Bld) [Entitic vol] 11.5 fL 6.2-12.0 [facility] Determination of erythrocyte mean corpuscular volume (MCV)Ordered By: Renard Burgos on 05-09-2022 MCV (RBC) [Entitic vol] 91.0 fL 80-94 [facility] Hematocrit Auto (Bld) [Volum e fraction]Ordered By: Renard Burgos on 05-09-2022 Hematocrit (Bld) [Volume fraction] 42.5 % 40-54 [facility] Laboratory - Hematology and Cell countsOrdered By: Renard Burgos on 05-09-2022 Erythrocyte distribution width (RBC) [Entitic vol] 41.4 fL 35.1-43.9 [facility] Erythrocyte distribution width (RBC) [Ratio] 12.7 % 11.6-14.6 [facility] Immature granulocytes/100 WBC (Bld) 0.300 % 0.0-0.9 [facility] Comment on above: IG% - Immature Granu locytes (promyelocytes, myelocytes and metamyelocytes) > 1% indicates that a LEFT SHIFT is Present. MCH (RBC) [Entitic mass] 30.2 pg 27.0-32.0 [facility] Nucleated RBC/100 WBC (Bld) [Ratio] 0.4 % 0-5 [facility] MCHC Auto (RBC) [Mass/Vol]Or dered By: Renard Burgos on 05-09-2022 MCHC (RBC) [Mass/Vol] 33.2 g/dL 32-36 [facility] Platelets bldOrdered By: Lyubov Burgos on 05-09-2022 Platelets (Bld) [#/Vol] 202 10*3/uL 150-450 [facility] Absolute lymphocyte countOrd ered By: Renard Burgos on 05-03-2022 Lymphocytes Auto (Unsp spec) [#/Vol] 1.86 10*3/uL 0.83-4.51 [facility] Basophil percentageOrdered B y: Renard Burgos on 05-03-2022 Basophils/100 WBC (Bld) 0.3 % 0-1 [facility] Eosinophils/100 WBC (Bld) 0.3 % 0-5 [facility] Neutrophils (Bld) [#/Vol] 6.4 10*3/uL 2.0-7.7 [facility] Neutrophils/100 WBC (Bld) 71.9 % 47-70 [facility] WBC (Bld) [#/Vol] 8.9 10*3/uL 4.4-11.0 [facility] Blood erythrocytes count (nu mber/volume)Ordered By: Renard Burgos on 05-03-2022 RBC (Bld) [#/Vol] 4.65 10*6/uL 4.6-6.2 [facility] Blood hemoglobin measurement (mass/volume)Ordered By: Renard Burgos on 05-03-2022 Hemoglobin (Bld) [Mass/Vol] 14.5 g/dL 13.0-16.5 [facility] Blood lymphocytes/100 leukoc ytesOrdered By: Renard Burgos on 05-03-2022 Lymphocytes/100 WBC (Bld) 20.9 % 19-41 [facility] Blood monocytes/100 leukocyt esOrdered By: Renard Burgos on 05-03-2022 Monocytes/100 WBC (Bld) 6.2 % 0-10 [facility] Blood platelet mean volumeOr dered By: Renard Burgos on 05-03-2022 Platelet mean volume (Bld) [Entitic vol] 11.1 fL 6.2-12.0 [facility] Determination of erythrocyte mean corpuscular volume (MCV)Ordered By: Renard Burgos on 05-03-2022 MCV (RBC) [Entitic vol] 90.1 fL 80-94 [facility] Hematocrit Auto (Bld) [Volum e fraction]Ordered By: Renard Burgos on 05-03-2022 Hematocrit (Bld) [Volume fraction] 41.9 % 40-54 [facility] Laboratory - Hematology and Cell countsOrdered By: Renard Burgos on 05-03-2022 Erythrocyte distribution width (RBC) [Entitic vol] 39.7 fL 35.1-43.9 [facility] Erythrocyte distribution width (RBC) [Ratio] 12.2 % 11.6-14.6 [facility] Immature granulocytes/100 WBC (Bld) 0.400 % 0.0-0.9 [facility] Comment on above: IG% - Immature Granu locytes (promyelocytes, myelocytes and metamyelocytes) > 1% indicates that a LEFT SHIFT is Present. MCH (RBC) [Entitic mass] 31.2 pg 27.0-32.0 [facility] Nucleated RBC/100 WBC (Bld) [Ratio] 0 % 0-5 [facility] MCHC Auto (RBC) [Mass/Vol]Or dered By: Renard Burgos on 05-03-2022 MCHC (RBC) [Mass/Vol] 34.6 g/dL 32-36 [facility] Platelets bldOrdered By: Lyubov Burgos on 05-03-2022 Platelets (Bld) [#/Vol] 203 10*3/uL 150-450 [facility] Absolute lymphocyte countOrd ered By: Renard Burgos on 04-26-2022 Lymphocytes Auto (Unsp spec) [#/Vol] 2.79 10*3/uL 0.83-4.51 [facility] Basophil percentageOrdered B y: Renard Burgos on 04-26-2022 Basophils/100 WBC (Bld) 0.4 % 0-1 [facility] Eosinophils/100 WBC (Bld) 0.4 % 0-5 [facility] Neutrophils (Bld) [#/Vol] 5.9 10*3/uL 2.0-7.7 [facility] Neutrophils/100 WBC (Bld) 60.9 % 47-70 [facility] WBC (Bld) [#/Vol] 9.7 10*3/uL 4.4-11.0 [facility] Blood erythrocytes count (nu mber/volume)Ordered By: Renard Burgos on 04-26-2022 RBC (Bld) [#/Vol] 4.92 10*6/uL 4.6-6.2 [facility] Blood hemoglobin measurement (mass/volume)Ordered By: Renard Burgos on 04-26-2022 Hemoglobin (Bld) [Mass/Vol] 15.2 g/dL 13.0-16.5 [facility] Blood lymphocytes/100 leukoc ytesOrdered By: Renard Burgos on 04-26-2022 Lymphocytes/100 WBC (Bld) 28.9 % 19-41 [facility] Blood monocytes/100 leukocyt esOrdered By: Renard Burgos on 04-26-2022 Monocytes/100 WBC (Bld) 9.0 % 0-10 [facility] Blood platelet mean volumeOr dered By: Renard Burgos on 04-26-2022 Platelet mean volume (Bld) [Entitic vol] 11.0 fL 6.2-12.0 [facility] Determination of erythrocyte mean corpuscular volume (MCV)Ordered By: Renard Burgos on 04-26-2022 MCV (RBC) [Entitic vol] 92.3 fL 80-94 [facility] Hematocrit Auto (Bld) [Volum e fraction]Ordered By: Renard Burgos on 04-26-2022 Hematocrit (Bld) [Volume fraction] 45.4 % 40-54 [facility] Laboratory - Hematology and Cell countsOrdered By: Renard Burgos on 04-26-2022 Erythrocyte distribution width (RBC) [Entitic vol] 42.1 fL 35.1-43.9 [facility] Erythrocyte distribution width (RBC) [Ratio] 12.5 % 11.6-14.6 [facility] Immature granulocytes/100 WBC (Bld) 0.400 % 0.0-0.9 [facility] Comment on above: IG% - Immature Granu locytes (promyelocytes, myelocytes and metamyelocytes) > 1% indicates that a LEFT SHIFT is Present. MCH (RBC) [Entitic mass] 30.9 pg 27.0-32.0 [facility] Nucleated RBC/100 WBC (Bld) [Ratio] 0 % 0-5 [facility] MCHC Auto (RBC) [Mass/Vol]Or dered By: Renard Burgos on 04-26-2022 MCHC (RBC) [Mass/Vol] 33.5 g/dL 32-36 [facility] Platelets bldOrdered By: Lyubov Burgos on 04-26-2022 Platelets (Bld) [#/Vol] 178 10*3/uL 150-450 [facility] Absolute lymphocyte countOrd ered By: Renard Burgos on 04-18-2022 Lymphocytes Auto (Unsp spec) [#/Vol] 2.03 10*3/uL 0.83-4.51 [facility] Basophil percentageOrdered B y: Renard Burgos on 04-18-2022 Basophils/100 WBC (Bld) 0.6 % 0-1 [facility] Eosinophils/100 WBC (Bld) 0.6 % 0-5 [facility] Neutrophils (Bld) [#/Vol] 4.5 10*3/uL 2.0-7.7 [facility] Neutrophils/100 WBC (Bld) 62.0 % 47-70 [facility] WBC (Bld) [#/Vol] 7.2 10*3/uL 4.4-11.0 [facility] Blood erythrocytes count (nu mber/volume)Ordered By: Renard Burgos on 04-18-2022 RBC (Bld) [#/Vol] 4.67 10*6/uL 4.6-6.2 [facility] Blood hemoglobin measurement (mass/volume)Ordered By: Renard Burgos on 04-18-2022 Hemoglobin (Bld) [Mass/Vol] 14.5 g/dL 13.0-16.5 [facility] Blood lymphocytes/100 leukoc ytesOrdered By: Renard Burgos on 04-18-2022 Lymphocytes/100 WBC (Bld) 28.2 % 19-41 [facility] Blood monocytes/100 leukocyt esOrdered By: Renard Burgos on 04-18-2022 Monocytes/100 WBC (Bld) 8.2 % 0-10 [facility] Blood platelet mean volumeOr dered By: Renard Burgos on 04-18-2022 Platelet mean volume (Bld) [Entitic vol] 11.2 fL 6.2-12.0 [facility] Determination of erythrocyte mean corpuscular volume (MCV)Ordered By: Renard Burgos on 04-18-2022 MCV (RBC) [Entitic vol] 90.8 fL 80-94 [facility] Hematocrit Auto (Bld) [Volum e fraction]Ordered By: Renard Burgos on 04-18-2022 Hematocrit (Bld) [Volume fraction] 42.4 % 40-54 [facility] Laboratory - Hematology and Cell countsOrdered By: Renard Burgos on 04-18-2022 Erythrocyte distribution width (RBC) [Entitic vol] 41.1 fL 35.1-43.9 [facility] Erythrocyte distribution width (RBC) [Ratio] 12.5 % 11.6-14.6 [facility] Immature granulocytes/100 WBC (Bld) 0.400 % 0.0-0.9 [facility] Comment on above: IG% - Immature Granu locytes (promyelocytes, myelocytes and metamyelocytes) > 1% indicates that a LEFT SHIFT is Present. MCH (RBC) [Entitic mass] 31.0 pg 27.0-32.0 [facility] Nucleated RBC/100 WBC (Bld) [Ratio] 0 % 0-5 [facility] MCHC Auto (RBC) [Mass/Vol]Or dered By: Renard Burgos on 04-18-2022 MCHC (RBC) [Mass/Vol] 34.2 g/dL 32-36 [facility] Platelets bldOrdered By: Lyubov Burgos on 04-18-2022 Platelets (Bld) [#/Vol] 196 10*3/uL 150-450 [facility] Basophil percentageOrdered B y: Renard Burgos on 04-14-2022 Bilirubin [Mass/Vol] 0.40 mg/dL 0.20-1.00 [facility] Comment on above: For patients on eltr ombopag therapy, use of Dimension [place] TBIL is not recommended. Protein [Mass/Vol] 6.3 g/dL 6.4-8.2 [facility] Direct bilirubinOrdered By: Renard Burgos on 04-14-2022 Bilirubin.direct [Mass/Vol] 0.12 mg/dL 0.00-0.30 [facility] Laboratory - Chemistry and C hemistry - challengeOrdered By: Renard Burgos on 04-14-2022 ALP [Catalytic activity/Vol] 117 U/L 45-117 [facility] ALT [Catalytic activity/Vol] 26 U/L 16-61 [facility] Globulin (S) [Mass/Vol] 3.2 g/dL 2.2-4.2 [facility] Serum or plasma albumin gordy urement (mass/volume)Ordered By: Renard Burgos on 04-14-2022 Albumin [Mass/Vol] 3.1 g/dL 3.2-5.0 [facility] Thin prep Papanicolaou smear with manual screeningOrdered By: Renard Burgos on 04-14-2022 Thin prep Papanicolaou smear with manual screening 12 U/L 15-37 [facility] Absolute lymphocyte countOrd ered By: Renard Burgos on 04-11-2022 Lymphocytes Auto (Unsp spec) [#/Vol] 2.16 10*3/uL 0.83-4.51 [facility] Basophil percentageOrdered B y: Renard Burgos on 04-11-2022 Basophils/100 WBC (Bld) 0.4 % 0-1 [facility] Eosinophils/100 WBC (Bld) 0.4 % 0-5 [facility] Neutrophils (Bld) [#/Vol] 4.2 10*3/uL 2.0-7.7 [facility] Neutrophils/100 WBC (Bld) 61.1 % 47-70 [facility] WBC (Bld) [#/Vol] 6.9 10*3/uL 4.4-11.0 [facility] Blood erythrocytes count (nu mber/volume)Ordered By: Renard Burgos on 04-11-2022 RBC (Bld) [#/Vol] 4.58 10*6/uL 4.6-6.2 [facility] Blood hemoglobin measurement (mass/volume)Ordered By: Renard Burgos on 04-11-2022 Hemoglobin (Bld) [Mass/Vol] 13.9 g/dL 13.0-16.5 [facility] Blood lymphocytes/100 leukoc ytesOrdered By: Renard Burgos on 04-11-2022 Lymphocytes/100 WBC (Bld) 31.2 % 19-41 [facility] Blood monocytes/100 leukocyt esOrdered By: Renard Burgos on 04-11-2022 Monocytes/100 WBC (Bld) 6.5 % 0-10 [facility] Blood platelet mean volumeOr dered By: Renard Burgos on 04-11-2022 Platelet mean volume (Bld) [Entitic vol] 11.4 fL 6.2-12.0 [facility] Determination of erythrocyte mean corpuscular volume (MCV)Ordered By: Renard Burgos on 04-11-2022 MCV (RBC) [Entitic vol] 91.9 fL 80-94 [facility] Hematocrit Auto (Bld) [Volum e fraction]Ordered By: Renard Burgos on 04-11-2022 Hematocrit (Bld) [Volume fraction] 42.1 % 40-54 [facility] Laboratory - Hematology and Cell countsOrdered By: Renard Burgos on 04-11-2022 Erythrocyte distribution width (RBC) [Entitic vol] 41.5 fL 35.1-43.9 [facility] Erythrocyte distribution width (RBC) [Ratio] 12.3 % 11.6-14.6 [facility] Immature granulocytes/100 WBC (Bld) 0.400 % 0.0-0.9 [facility] Comment on above: IG% - Immature Granu locytes (promyelocytes, myelocytes and metamyelocytes) > 1% indicates that a LEFT SHIFT is Present. MCH (RBC) [Entitic mass] 30.3 pg 27.0-32.0 [facility] Nucleated RBC/100 WBC (Bld) [Ratio] 0 % 0-5 [facility] MCHC Auto (RBC) [Mass/Vol]Or dered By: Renard Burgos on 04-11-2022 MCHC (RBC) [Mass/Vol] 33.0 g/dL 32-36 [facility] Platelets bldOrdered By: Lyubov Burgos on 04-11-2022 Platelets (Bld) [#/Vol] 191 10*3/uL 150-450 [facility] Absolute lymphocyte countOrd ered By: Renard Burgos on 04-04-2022 Lymphocytes Auto (Unsp spec) [#/Vol] 1.99 10*3/uL 0.83-4.51 [facility] Basophil percentageOrdered B y: Renard Burgos on 04-04-2022 Basophils/100 WBC (Bld) 0.4 % 0-1 [facility] Cholesterol [Mass/Vol] 158 mg/dL <200 [facility] Comment on above: <200 mg/dL Desirable 200-240 mg/dL Borderline >240 mg/dL High Risk Eosinophils/100 WBC (Bld) 0.4 % 0-5 [facility] Neutrophils (Bld) [#/Vol] 4.9 10*3/uL 2.0-7.7 [facility] Neutrophils/100 WBC (Bld) 64.2 % 47-70 [facility] Triglyceride [Mass/Vol] 259 mg/dL <199 [facility] Comment on above: The drugs N-Acetylcy steine and Metamizole may falsely depress this assay.Serum Triglycerides Reference Interval Normal <150 mg/dL Borderline high 150 - 199 mg/dL High 200 - 499 mg/dL Very High > or = 500 mg/dL WBC (Bld) [#/Vol] 7.7 10*3/uL 4.4-11.0 [facility] Blood erythrocytes count (nu mber/volume)Ordered By: Renard Burgos on 04-04-2022 RBC (Bld) [#/Vol] 4.63 10*6/uL 4.6-6.2 [facility] Blood hemoglobin measurement (mass/volume)Ordered By: Renard Burgos on 04-04-2022 Hemoglobin (Bld) [Mass/Vol] 14.1 g/dL 13.0-16.5 [facility] Blood lymphocytes/100 leukoc ytesOrdered By: Renard Burgos on 04-04-2022 Lymphocytes/100 WBC (Bld) 25.9 % 19-41 [facility] Blood monocytes/100 leukocyt esOrdered By: Renard Burgos on 04-04-2022 Monocytes/100 WBC (Bld) 8.6 % 0-10 [facility] Blood platelet mean volumeOr dered By: Renard Burgos on 04-04-2022 Platelet mean volume (Bld) [Entitic vol] 11.3 fL 6.2-12.0 [facility] Determination of erythrocyte mean corpuscular volume (MCV)Ordered By: Renard Burgos on 04-04-2022 MCV (RBC) [Entitic vol] 90.7 fL 80-94 [facility] Hematocrit Auto (Bld) [Volum e fraction]Ordered By: Renard Burgos on 04-04-2022 Hematocrit (Bld) [Volume fraction] 42.0 % 40-54 [facility] Laboratory - Hematology and Cell countsOrdered By: Renard Burgos on 04-04-2022 Erythrocyte distribution width (RBC) [Entitic vol] 41.3 fL 35.1-43.9 [facility] Erythrocyte distribution width (RBC) [Ratio] 12.4 % 11.6-14.6 [facility] Immature granulocytes/100 WBC (Bld) 0.500 % 0.0-0.9 [facility] Comment on above: IG% - Immature Granu locytes (promyelocytes, myelocytes and metamyelocytes) > 1% indicates that a LEFT SHIFT is Present. MCH (RBC) [Entitic mass] 30.5 pg 27.0-32.0 [facility] Nucleated RBC/100 WBC (Bld) [Ratio] 0 % 0-5 [facility] MCHC Auto (RBC) [Mass/Vol]Or dered By: Renard Burgos on 04-04-2022 MCHC (RBC) [Mass/Vol] 33.6 g/dL 32-36 [facility] Platelets bldOrdered By: Lyubov Burgos on 04-04-2022 Platelets (Bld) [#/Vol] 174 10*3/uL 150-450 [facility] Serum or plasma cholesterol in HDL measurement (mass/volume)Ordered By: Renard Burgos on 04-04-2022 Cholesterol in HDL [Mass/Vol] 26 mg/dL >40 [facility] Comment on above: The drugs N-Acetylcy steine and Metamizole may falsely depress this assay. Reference Range HDL <40 mg/dL Low HDL Cholesterol HDL >or= 60 mg/dL High HDL Cholesterol Serum or plasma cholesterol in VLDL measurement (mass/volume)Ordered By: Renard Burgos on 04-04-2022 Cholesterol in VLDL [Mass/Vol] 52 mg/dL 5-40 [facility] Serum or plasma low density lipoprotein (LDL) cholesterol measurement (mass/volume)Ordered By: Renard Burgos on 04-04-2022 Cholesterol in LDL [Mass/Vol] 80 mg/dL 0-130 [facility] Absolute lymphocyte countOrd ered By: Renard Burgos on 03-28-2022 Lymphocytes Auto (Unsp spec) [#/Vol] 2.25 10*3/uL 0.83-4.51 [facility] Basophil percentageOrdered B y: Renard Burgos on 03-28-2022 Basophils/100 WBC (Bld) 0.6 % 0-1 [facility] Eosinophils/100 WBC (Bld) 0.5 % 0-5 [facility] Neutrophils (Bld) [#/Vol] 4.8 10*3/uL 2.0-7.7 [facility] Neutrophils/100 WBC (Bld) 60.5 % 47-70 [facility] WBC (Bld) [#/Vol] 8.0 10*3/uL 4.4-11.0 [facility] Blood erythrocytes count (nu mber/volume)Ordered By: Renard Burgos on 03-28-2022 RBC (Bld) [#/Vol] 4.69 10*6/uL 4.6-6.2 [facility] Blood hemoglobin measurement (mass/volume)Ordered By: Renard Burgos on 03-28-2022 Hemoglobin (Bld) [Mass/Vol] 14.4 g/dL 13.0-16.5 [facility] Blood lymphocytes/100 leukoc ytesOrdered By: Renard Burgos on 03-28-2022 Lymphocytes/100 WBC (Bld) 28.1 % 19-41 [facility] Blood monocytes/100 leukocyt esOrdered By: Renard Burgos on 03-28-2022 Monocytes/100 WBC (Bld) 9.8 % 0-10 [facility] Blood platelet mean volumeOr dered By: Renard Burgos on 03-28-2022 Platelet mean volume (Bld) [Entitic vol] 10.8 fL 6.2-12.0 [facility] Determination of erythrocyte mean corpuscular volume (MCV)Ordered By: Renard Burgos on 03-28-2022 MCV (RBC) [Entitic vol] 92.1 fL 80-94 [facility] Hematocrit Auto (Bld) [Volum e fraction]Ordered By: Renard Burgos on 03-28-2022 Hematocrit (Bld) [Volume fraction] 43.2 % 40-54 [facility] Laboratory - Hematology and Cell countsOrdered By: Renard Burgos on 03-28-2022 Erythrocyte distribution width (RBC) [Entitic vol] 42.0 fL 35.1-43.9 [facility] Erythrocyte distribution width (RBC) [Ratio] 12.5 % 11.6-14.6 [facility] Immature granulocytes/100 WBC (Bld) 0.500 % 0.0-0.9 [facility] Comment on above: IG% - Immature Granu locytes (promyelocytes, myelocytes and metamyelocytes) > 1% indicates that a LEFT SHIFT is Present. MCH (RBC) [Entitic mass] 30.7 pg 27.0-32.0 [facility] Nucleated RBC/100 WBC (Bld) [Ratio] 0 % 0-5 [facility] MCHC Auto (RBC) [Mass/Vol]Or dered By: Renard Burgos on 03-28-2022 MCHC (RBC) [Mass/Vol] 33.3 g/dL 32-36 [facility] Platelets bldOrdered By: Lyubov medel Loretta on 03-28-2022 Platelets (Bld) [#/Vol] 207 10*3/uL 150-450 [facility] Absolute lymphocyte countOrd ered By: Renard Burgos on 03-21-2022 Lymphocytes Auto (Unsp spec) [#/Vol] 1.98 10*3/uL 0.83-4.51 [facility] Basophil percentageOrdered B y: Renard Burgos on 03-21-2022 Basophils/100 WBC (Bld) 0.5 % 0-1 [facility] Eosinophils/100 WBC (Bld) 0.5 % 0-5 [facility] Neutrophils (Bld) [#/Vol] 4.9 10*3/uL 2.0-7.7 [facility] Neutrophils/100 WBC (Bld) 63.6 % 47-70 [facility] WBC (Bld) [#/Vol] 7.7 10*3/uL 4.4-11.0 [facility] Blood erythrocytes count (nu mber/volume)Ordered By: Renard Burgos on 03-21-2022 RBC (Bld) [#/Vol] 4.82 10*6/uL 4.6-6.2 [facility] Blood hemoglobin measurement (mass/volume)Ordered By: Renard Burgos on 03-21-2022 Hemoglobin (Bld) [Mass/Vol] 14.9 g/dL 13.0-16.5 [facility] Blood lymphocytes/100 leukoc ytesOrdered By: Renard Burgos on 03-21-2022 Lymphocytes/100 WBC (Bld) 25.7 % 19-41 [facility] Blood monocytes/100 leukocyt esOrdered By: Renard Burgos on 03-21-2022 Monocytes/100 WBC (Bld) 9.3 % 0-10 [facility] Blood platelet mean volumeOr dered By: Renard Burgos on 03-21-2022 Platelet mean volume (Bld) [Entitic vol] 10.8 fL 6.2-12.0 [facility] Determination of erythrocyte mean corpuscular volume (MCV)Ordered By: Renard Burgos on 03-21-2022 MCV (RBC) [Entitic vol] 90.7 fL 80-94 [facility] Hematocrit Auto (Bld) [Volum e fraction]Ordered By: Renard Burgos on 03-21-2022 Hematocrit (Bld) [Volume fraction] 43.7 % 40-54 [facility] Laboratory - Hematology and Cell countsOrdered By: Renard Burgos on 03-21-2022 Erythrocyte distribution width (RBC) [Entitic vol] 40.8 fL 35.1-43.9 [facility] Erythrocyte distribution width (RBC) [Ratio] 12.4 % 11.6-14.6 [facility] Immature granulocytes/100 WBC (Bld) 0.400 % 0.0-0.9 [facility] Comment on above: IG% - Immature Granu locytes (promyelocytes, myelocytes and metamyelocytes) > 1% indicates that a LEFT SHIFT is Present. MCH (RBC) [Entitic mass] 30.9 pg 27.0-32.0 [facility] Nucleated RBC/100 WBC (Bld) [Ratio] 0 % 0-5 [facility] MCHC Auto (RBC) [Mass/Vol]Or dered By: Renard Burgos on 03-21-2022 MCHC (RBC) [Mass/Vol] 34.1 g/dL 32-36 [facility] Platelets bldOrdered By: Lyubov Burgos on 03-21-2022 Platelets (Bld) [#/Vol] 186 10*3/uL 150-450 [facility] Absolute lymphocyte countOrd ered By: Renard Burgos on 03-14-2022 Lymphocytes Auto (Unsp spec) [#/Vol] 2.18 10*3/uL 0.83-4.51 [facility] Basophil percentageOrdered B y: Renard Burgos on 03-14-2022 Basophils/100 WBC (Bld) 0.4 % 0-1 [facility] Eosinophils/100 WBC (Bld) 0.6 % 0-5 [facility] Neutrophils (Bld) [#/Vol] 4.3 10*3/uL 2.0-7.7 [facility] Neutrophils/100 WBC (Bld) 58.8 % 47-70 [facility] WBC (Bld) [#/Vol] 7.3 10*3/uL 4.4-11.0 [facility] Blood erythrocytes count (nu mber/volume)Ordered By: Renard Burgos on 03-14-2022 RBC (Bld) [#/Vol] 4.80 10*6/uL 4.6-6.2 [facility] Blood hemoglobin measurement (mass/volume)Ordered By: Renard Burgos on 03-14-2022 Hemoglobin (Bld) [Mass/Vol] 14.5 g/dL 13.0-16.5 [facility] Blood lymphocytes/100 leukoc ytesOrdered By: Renard Burgos on 03-14-2022 Lymphocytes/100 WBC (Bld) 30.1 % 19-41 [facility] Blood monocytes/100 leukocyt esOrdered By: Renard Burgos on 03-14-2022 Monocytes/100 WBC (Bld) 9.5 % 0-10 [facility] Blood platelet mean volumeOr dered By: Renard Burgos on 03-14-2022 Platelet mean volume (Bld) [Entitic vol] 11.0 fL 6.2-12.0 [facility] Determination of erythrocyte mean corpuscular volume (MCV)Ordered By: Renard Burgos on 03-14-2022 MCV (RBC) [Entitic vol] 91.5 fL 80-94 [facility] Hematocrit Auto (Bld) [Volum e fraction]Ordered By: Renard Burgos on 03-14-2022 Hematocrit (Bld) [Volume fraction] 43.9 % 40-54 [facility] Laboratory - Hematology and Cell countsOrdered By: Renard Burgos on 03-14-2022 Erythrocyte distribution width (RBC) [Entitic vol] 41.1 fL 35.1-43.9 [facility] Erythrocyte distribution width (RBC) [Ratio] 12.4 % 11.6-14.6 [facility] Immature granulocytes/100 WBC (Bld) 0.600 % 0.0-0.9 [facility] Comment on above: IG% - Immature Granu locytes (promyelocytes, myelocytes and metamyelocytes) > 1% indicates that a LEFT SHIFT is Present. MCH (RBC) [Entitic mass] 30.2 pg 27.0-32.0 [facility] Nucleated RBC/100 WBC (Bld) [Ratio] 0 % 0-5 [facility] MCHC Auto (RBC) [Mass/Vol]Or dered By: Renard Burgos on 03-14-2022 MCHC (RBC) [Mass/Vol] 33.0 g/dL 32-36 [facility] Platelets bldOrdered By: Lyubov Burgos on 03-14-2022 Platelets (Bld) [#/Vol] 201 10*3/uL 150-450 [facility] Absolute lymphocyte countOrd ered By: Renard Burgos on 2022 Lymphocytes Auto (Unsp spec) [#/Vol] 1.97 10*3/uL 0.83-4.51 [facility] Basophil percentageOrdered B y: Renard Burgos on 2022 Basophils/100 WBC (Bld) 0.6 % 0-1 [facility] Eosinophils/100 WBC (Bld) 0.4 % 0-5 [facility] Neutrophils (Bld) [#/Vol] 4.3 10*3/uL 2.0-7.7 [facility] Neutrophils/100 WBC (Bld) 61.3 % 47-70 [facility] WBC (Bld) [#/Vol] 7.0 10*3/uL 4.4-11.0 [facility] Blood erythrocytes count (nu mber/volume)Ordered By: Renard Burgos on 2022 RBC (Bld) [#/Vol] 4.78 10*6/uL 4.6-6.2 [facility] Blood hemoglobin measurement (mass/volume)Ordered By: Renard Burgos on 2022 Hemoglobin (Bld) [Mass/Vol] 14.4 g/dL 13.0-16.5 [facility] Blood lymphocytes/100 leukoc ytesOrdered By: Renard Burgos on 2022 Lymphocytes/100 WBC (Bld) 28.3 % 19-41 [facility] Blood monocytes/100 leukocyt esOrdered By: Renard Burgos on 2022 Monocytes/100 WBC (Bld) 9.1 % 0-10 [facility] Blood platelet mean volumeOr dered By: Renard Burgos on 2022 Platelet mean volume (Bld) [Entitic vol] 11.1 fL 6.2-12.0 [facility] Determination of erythrocyte mean corpuscular volume (MCV)Ordered By: Renard Burgos on 2022 MCV (RBC) [Entitic vol] 91.2 fL 80-94 [facility] Hematocrit Auto (Bld) [Volum e fraction]Ordered By: Renard Burgos on 2022 Hematocrit (Bld) [Volume fraction] 43.6 % 40-54 [facility] Laboratory - Hematology and Cell countsOrdered By: Renard Burgos on 2022 Erythrocyte distribution width (RBC) [Entitic vol] 42.0 fL 35.1-43.9 [facility] Erythrocyte distribution width (RBC) [Ratio] 12.6 % 11.6-14.6 [facility] Immature granulocytes/100 WBC (Bld) 0.300 % 0.0-0.9 [facility] Comment on above: IG% - Immature Granu locytes (promyelocytes, myelocytes and metamyelocytes) > 1% indicates that a LEFT SHIFT is Present. MCH (RBC) [Entitic mass] 30.1 pg 27.0-32.0 [facility] Nucleated RBC/100 WBC (Bld) [Ratio] 0 % 0-5 [facility] MCHC Auto (RBC) [Mass/Vol]Or dered By: Renard Burgos on 2022 MCHC (RBC) [Mass/Vol] 33.0 g/dL 32-36 [facility] Platelets bldOrdered By: Lyubov Burgos on 2022 Platelets (Bld) [#/Vol] 210 10*3/uL 150-450 [facility] Absolute lymphocyte countOrd ered By: Renard Burgos on 02-28-2022 Lymphocytes Auto (Unsp spec) [#/Vol] 1.85 10*3/uL 0.83-4.51 [facility] Basophil percentageOrdered B y: Renard Burgos on 02-28-2022 Basophils/100 WBC (Bld) 0.4 % 0-1 [facility] Eosinophils/100 WBC (Bld) 0.4 % 0-5 [facility] Neutrophils (Bld) [#/Vol] 5.3 10*3/uL 2.0-7.7 [facility] Neutrophils/100 WBC (Bld) 67.8 % 47-70 [facility] WBC (Bld) [#/Vol] 7.8 10*3/uL 4.4-11.0 [facility] Blood erythrocytes count (nu mber/volume)Ordered By: Renard Burgos on 02-28-2022 RBC (Bld) [#/Vol] 4.58 10*6/uL 4.6-6.2 [facility] Blood hemoglobin measurement (mass/volume)Ordered By: Renard Burgos on 02-28-2022 Hemoglobin (Bld) [Mass/Vol] 14.3 g/dL 13.0-16.5 [facility] Blood lymphocytes/100 leukoc ytesOrdered By: Renard Burgos on 02-28-2022 Lymphocytes/100 WBC (Bld) 23.8 % 19-41 [facility] Blood monocytes/100 leukocyt esOrdered By: Renard Burgos on 02-28-2022 Monocytes/100 WBC (Bld) 7.2 % 0-10 [facility] Blood platelet mean volumeOr dered By: Renard Burgos on 02-28-2022 Platelet mean volume (Bld) [Entitic vol] 10.8 fL 6.2-12.0 [facility] Determination of erythrocyte mean corpuscular volume (MCV)Ordered By: Renard Burgos on 02-28-2022 MCV (RBC) [Entitic vol] 91.5 fL 80-94 [facility] Hematocrit Auto (Bld) [Volum e fraction]Ordered By: Renard Burgos on 02-28-2022 Hematocrit (Bld) [Volume fraction] 41.9 % 40-54 [facility] Laboratory - Hematology and Cell countsOrdered By: Renard Burgos on 02-28-2022 Erythrocyte distribution width (RBC) [Entitic vol] 42.2 fL 35.1-43.9 [facility] Erythrocyte distribution width (RBC) [Ratio] 12.7 % 11.6-14.6 [facility] Immature granulocytes/100 WBC (Bld) 0.400 % 0.0-0.9 [facility] Comment on above: IG% - Immature Granu locytes (promyelocytes, myelocytes and metamyelocytes) > 1% indicates that a LEFT SHIFT is Present. MCH (RBC) [Entitic mass] 31.2 pg 27.0-32.0 [facility] Nucleated RBC/100 WBC (Bld) [Ratio] 0 % 0-5 [facility] MCHC Auto (RBC) [Mass/Vol]Or dered By: Renard Burgos on 02-28-2022 MCHC (RBC) [Mass/Vol] 34.1 g/dL 32-36 [facility] Platelets bldOrdered By: Pet shirley Burgos on 02-28-2022 Platelets (Bld) [#/Vol] 202 10*3/uL 150-450 [facility] Absolute lymphocyte countOrd ered By: Renard Burgos on 02-21-2022 Lymphocytes Auto (Unsp spec) [#/Vol] 1.93 10*3/uL 0.83-4.51 [facility] Basophil percentageOrdered B y: Renard Burgos on 02-21-2022 Basophils/100 WBC (Bld) 0.4 % 0-1 [facility] Eosinophils/100 WBC (Bld) 0.4 % 0-5 [facility] Neutrophils (Bld) [#/Vol] 4.6 10*3/uL 2.0-7.7 [facility] Neutrophils/100 WBC (Bld) 63.4 % 47-70 [facility] WBC (Bld) [#/Vol] 7.2 10*3/uL 4.4-11.0 [facility] Blood erythrocytes count (nu mber/volume)Ordered By: Renard Burgos on 02-21-2022 RBC (Bld) [#/Vol] 4.54 10*6/uL 4.6-6.2 [facility] Blood hemoglobin measurement (mass/volume)Ordered By: Renard Burgos on 02-21-2022 Hemoglobin (Bld) [Mass/Vol] 14.1 g/dL 13.0-16.5 [facility] Blood lymphocytes/100 leukoc ytesOrdered By: Renard Burgos on 02-21-2022 Lymphocytes/100 WBC (Bld) 26.7 % 19-41 [facility] Blood monocytes/100 leukocyt esOrdered By: Renard Burgos on 02-21-2022 Monocytes/100 WBC (Bld) 8.8 % 0-10 [facility] Blood platelet mean volumeOr dered By: Renard Burgos on 02-21-2022 Platelet mean volume (Bld) [Entitic vol] 11.1 fL 6.2-12.0 [facility] Determination of erythrocyte mean corpuscular volume (MCV)Ordered By: Renard Burgos on 02-21-2022 MCV (RBC) [Entitic vol] 91.4 fL 80-94 [facility] Hematocrit Auto (Bld) [Volum e fraction]Ordered By: Renard Burgos on 02-21-2022 Hematocrit (Bld) [Volume fraction] 41.5 % 40-54 [facility] Laboratory - Hematology and Cell countsOrdered By: Renard Burgos on 02-21-2022 Erythrocyte distribution width (RBC) [Entitic vol] 41.9 fL 35.1-43.9 [facility] Erythrocyte distribution width (RBC) [Ratio] 12.6 % 11.6-14.6 [facility] Immature granulocytes/100 WBC (Bld) 0.300 % 0.0-0.9 [facility] Comment on above: IG% - Immature Granu locytes (promyelocytes, myelocytes and metamyelocytes) > 1% indicates that a LEFT SHIFT is Present. MCH (RBC) [Entitic mass] 31.1 pg 27.0-32.0 [facility] Nucleated RBC/100 WBC (Bld) [Ratio] 0 % 0-5 [facility] MCHC Auto (RBC) [Mass/Vol]Or dered By: Renard Burgos on 02-21-2022 MCHC (RBC) [Mass/Vol] 34.0 g/dL 32-36 [facility] Platelets bldOrdered By: Lyubov Burgos on 02-21-2022 Platelets (Bld) [#/Vol] 189 10*3/uL 150-450 [facility] Absolute lymphocyte countOrd ered By: Renard Burgos on 02-14-2022 Lymphocytes Auto (Unsp spec) [#/Vol] 2.00 10*3/uL 0.83-4.51 [facility] Basophil percentageOrdered B y: Renard Burgos on 02-14-2022 Basophils/100 WBC (Bld) 0.6 % 0-1 [facility] Eosinophils/100 WBC (Bld) 0.3 % 0-5 [facility] Neutrophils (Bld) [#/Vol] 6.4 10*3/uL 2.0-7.7 [facility] Neutrophils/100 WBC (Bld) 69.5 % 47-70 [facility] WBC (Bld) [#/Vol] 9.3 10*3/uL 4.4-11.0 [facility] Blood erythrocytes count (nu mber/volume)Ordered By: Renard Burgos on 02-14-2022 RBC (Bld) [#/Vol] 4.65 10*6/uL 4.6-6.2 [facility] Blood hemoglobin measurement (mass/volume)Ordered By: Renard Burgos on 02-14-2022 Hemoglobin (Bld) [Mass/Vol] 14.6 g/dL 13.0-16.5 [facility] Blood lymphocytes/100 leukoc ytesOrdered By: Renard Burgos on 02-14-2022 Lymphocytes/100 WBC (Bld) 21.6 % 19-41 [facility] Blood monocytes/100 leukocyt esOrdered By: Renard Burgos on 02-14-2022 Monocytes/100 WBC (Bld) 7.6 % 0-10 [facility] Blood platelet mean volumeOr dered By: Renard Burgos on 02-14-2022 Platelet mean volume (Bld) [Entitic vol] 11.1 fL 6.2-12.0 [facility] Determination of erythrocyte mean corpuscular volume (MCV)Ordered By: Renard Burgos on 02-14-2022 MCV (RBC) [Entitic vol] 91.8 fL 80-94 [facility] Hematocrit Auto (Bld) [Volum e fraction]Ordered By: Renard Burgos on 02-14-2022 Hematocrit (Bld) [Volume fraction] 42.7 % 40-54 [facility] - Hematology and Cell countsOrdered By: Renard Burgos on 02-14-2022 Erythrocyte distribution width (RBC) [Entitic vol] 43.7 fL 35.1-43.9 [facility] Erythrocyte distribution width (RBC) [Ratio] 13.0 % 11.6-14.6 [facility] Immature granulocytes/100 WBC (Bld) 0.400 % 0.0-0.9 [facility] Comment on above: IG% - Immature Granu locytes (promyelocytes, myelocytes and metamyelocytes) > 1% indicates that a LEFT SHIFT is Present. MCH (RBC) [Entitic mass] 31.4 pg 27.0-32.0 [facility] Nucleated RBC/100 WBC (Bld) [Ratio] 0 % 0-5 [facility] MCHC Auto (RBC) [Mass/Vol]Or dered By: Renard Burgos on 02-14-2022 MCHC (RBC) [Mass/Vol] 34.2 g/dL 32-36 [facility] Platelets bldOrdered By: Lyubov Burgos on 02-14-2022 Platelets (Bld) [#/Vol] 187 10*3/uL 150-450 [facility] Absolute lymphocyte countOrd ered By: Renard Burgos on 02-07-2022 Lymphocytes Auto (Unsp spec) [#/Vol] 1.97 10*3/uL 0.83-4.51 [facility] Basophil percentageOrdered B y: Renard Burgos on 02-07-2022 Basophils/100 WBC (Bld) 0.4 % 0-1 [facility] Eosinophils/100 WBC (Bld) 0.3 % 0-5 [facility] Neutrophils (Bld) [#/Vol] 4.2 10*3/uL 2.0-7.7 [facility] Neutrophils/100 WBC (Bld) 61.8 % 47-70 [facility] WBC (Bld) [#/Vol] 6.8 10*3/uL 4.4-11.0 [facility] Blood erythrocytes count (nu mber/volume)Ordered By: Renard Burgos on 02-07-2022 RBC (Bld) [#/Vol] 4.86 10*6/uL 4.6-6.2 [facility] Blood hemoglobin measurement (mass/volume)Ordered By: Renard Burgos on 02-07-2022 Hemoglobin (Bld) [Mass/Vol] 15.4 g/dL 13.0-16.5 [facility] Blood lymphocytes/100 leukoc ytesOrdered By: Renard Burgos on 02-07-2022 Lymphocytes/100 WBC (Bld) 29.1 % 19-41 [facility] Blood monocytes/100 leukocyt esOrdered By: Renard Burgos on 02-07-2022 Monocytes/100 WBC (Bld) 8.1 % 0-10 [facility] Blood platelet mean volumeOr dered By: Renard Burgos on 02-07-2022 Platelet mean volume (Bld) [Entitic vol] 11.0 fL 6.2-12.0 [facility] Determination of erythrocyte mean corpuscular volume (MCV)Ordered By: Renard Burgos on 02-07-2022 MCV (RBC) [Entitic vol] 92.6 fL 80-94 [facility] Hematocrit Auto (Bld) [Volum e fraction]Ordered By: Renard Burgos on 02-07-2022 Hematocrit (Bld) [Volume fraction] 45.0 % 40-54 [facility] Laboratory - Hematology and Cell countsOrdered By: Renard Burgos on 02-07-2022 Erythrocyte distribution width (RBC) [Entitic vol] 43.1 fL 35.1-43.9 [facility] Erythrocyte distribution width (RBC) [Ratio] 12.7 % 11.6-14.6 [facility] Immature granulocytes/100 WBC (Bld) 0.300 % 0.0-0.9 [facility] Comment on above: IG% - Immature Granu locytes (promyelocytes, myelocytes and metamyelocytes) > 1% indicates that a LEFT SHIFT is Present. MCH (RBC) [Entitic mass] 31.7 pg 27.0-32.0 [facility] Nucleated RBC/100 WBC (Bld) [Ratio] 0 % 0-5 [facility] MCHC Auto (RBC) [Mass/Vol]Or dered By: Renard Burgos on 02-07-2022 MCHC (RBC) [Mass/Vol] 34.2 g/dL 32-36 [facility] Platelets bldOrdered By: Lyubov Burgos on 02-07-2022 Platelets (Bld) [#/Vol] 196 10*3/uL 150-450 [facility] Absolute lymphocyte countOrd ered By: eRnard Burgos on 01-31-2022 Lymphocytes Auto (Unsp spec) [#/Vol] 2.19 10*3/uL 0.83-4.51 [facility] Basophil percentageOrdered B y: Renard Burgos on 01-31-2022 Basophils/100 WBC (Bld) 0.3 % 0-1 [facility] Eosinophils/100 WBC (Bld) 0.2 % 0-5 [facility] Neutrophils (Bld) [#/Vol] 5.7 10*3/uL 2.0-7.7 [facility] Neutrophils/100 WBC (Bld) 64.9 % 47-70 [facility] WBC (Bld) [#/Vol] 8.8 10*3/uL 4.4-11.0 [facility] Blood erythrocytes count (nu mber/volume)Ordered By: Renard Burgos on 01-31-2022 RBC (Bld) [#/Vol] 4.81 10*6/uL 4.6-6.2 [facility] Blood hemoglobin measurement (mass/volume)Ordered By: Renard Burgos on 01-31-2022 Hemoglobin (Bld) [Mass/Vol] 14.9 g/dL 13.0-16.5 [facility] Blood lymphocytes/100 leukoc ytesOrdered By: Renard Burgos on 01-31-2022 Lymphocytes/100 WBC (Bld) 24.9 % 19-41 [facility] Blood monocytes/100 leukocyt esOrdered By: Renard Burgos on 01-31-2022 Monocytes/100 WBC (Bld) 9.2 % 0-10 [facility] Blood platelet mean volumeOr dered By: Renard Burgos on 01-31-2022 Platelet mean volume (Bld) [Entitic vol] 11.0 fL 6.2-12.0 [facility] Determination of erythrocyte mean corpuscular volume (MCV)Ordered By: Renard Burgos on 01-31-2022 MCV (RBC) [Entitic vol] 92.9 fL 80-94 [facility] Hematocrit Auto (Bld) [Volum e fraction]Ordered By: Renard Burgos on 01-31-2022 Hematocrit (Bld) [Volume fraction] 44.7 % 40-54 [facility] Laboratory - Hematology and Cell countsOrdered By: Renard Burgos on 01-31-2022 Erythrocyte distribution width (RBC) [Entitic vol] 42.9 fL 35.1-43.9 [facility] Erythrocyte distribution width (RBC) [Ratio] 12.6 % 11.6-14.6 [facility] Immature granulocytes/100 WBC (Bld) 0.500 % 0.0-0.9 [facility] Comment on above: IG% - Immature Granu locytes (promyelocytes, myelocytes and metamyelocytes) > 1% indicates that a LEFT SHIFT is Present. MCH (RBC) [Entitic mass] 31.0 pg 27.0-32.0 [facility] Nucleated RBC/100 WBC (Bld) [Ratio] 0 % 0-5 [facility] MCHC Auto (RBC) [Mass/Vol]Or dered By: Renard Burgos on 01-31-2022 MCHC (RBC) [Mass/Vol] 33.3 g/dL 32-36 [facility] Platelets bldOrdered By: Lyubov Burgos on 01-31-2022 Platelets (Bld) [#/Vol] 204 10*3/uL 150-450 [facility] Absolute lymphocyte countOrd ered By: Renard Burgos on 01-24-2022 Lymphocytes Auto (Unsp spec) [#/Vol] 1.82 10*3/uL 0.83-4.51 [facility] Basophil percentageOrdered B y: Renard Burgos on 01-24-2022 Basophils/100 WBC (Bld) 0.3 % 0-1 [facility] Eosinophils/100 WBC (Bld) 0.3 % 0-5 [facility] Neutrophils (Bld) [#/Vol] 6.1 10*3/uL 2.0-7.7 [facility] Neutrophils/100 WBC (Bld) 69.9 % 47-70 [facility] WBC (Bld) [#/Vol] 8.7 10*3/uL 4.4-11.0 [facility] Blood erythrocytes count (nu mber/volume)Ordered By: Renard Burgos on 01-24-2022 RBC (Bld) [#/Vol] 4.74 10*6/uL 4.6-6.2 [facility] Blood hemoglobin measurement (mass/volume)Ordered By: Renard Burgos on 01-24-2022 Hemoglobin (Bld) [Mass/Vol] 14.5 g/dL 13.0-16.5 [facility] Blood lymphocytes/100 leukoc ytesOrdered By: Renard Burgos on 01-24-2022 Lymphocytes/100 WBC (Bld) 20.9 % 19-41 [facility] Blood monocytes/100 leukocyt esOrdered By: Renard Burgos on 01-24-2022 Monocytes/100 WBC (Bld) 8.4 % 0-10 [facility] Blood platelet mean volumeOr dered By: Renard Burgos on 01-24-2022 Platelet mean volume (Bld) [Entitic vol] 10.9 fL 6.2-12.0 [facility] Determination of erythrocyte mean corpuscular volume (MCV)Ordered By: Renard Burgos on 01-24-2022 MCV (RBC) [Entitic vol] 92.0 fL 80-94 [facility] Hematocrit Auto (Bld) [Volum e fraction]Ordered By: Renard Burgos on 01-24-2022 Hematocrit (Bld) [Volume fraction] 43.6 % 40-54 [facility] Laboratory - Hematology and Cell countsOrdered By: Renard Burgos on 01-24-2022 Erythrocyte distribution width (RBC) [Entitic vol] 42.3 fL 35.1-43.9 [facility] Erythrocyte distribution width (RBC) [Ratio] 12.5 % 11.6-14.6 [facility] Immature granulocytes/100 WBC (Bld) 0.200 % 0.0-0.9 [facility] Comment on above: IG% - Immature Granu locytes (promyelocytes, myelocytes and metamyelocytes) > 1% indicates that a LEFT SHIFT is Present. MCH (RBC) [Entitic mass] 30.6 pg 27.0-32.0 [facility] Nucleated RBC/100 WBC (Bld) [Ratio] 0 % 0-5 [facility] MCHC Auto (RBC) [Mass/Vol]Or dered By: Renard Burgos on 01-24-2022 MCHC (RBC) [Mass/Vol] 33.3 g/dL 32-36 [facility] Platelets bldOrdered By: Pet er Shelliesaros on 01-24-2022 Platelets (Bld) [#/Vol] 192 10*3/uL 150-450 [facility] Absolute lymphocyte counton 01-17-2022 Lymphocytes Auto (Unsp spec) [#/Vol] 1.89 10*3/uL 0.83-4.51 [facility] Work Phone: Basophil percentageon 2021 Basophils/100 WBC (Bld) 0.4 % 0-1 [facility] Work Phone: [phone] Eosinophils/100 WBC (Bld) 0.3 % 0-5 [facility] Work Phone: [phone] Neutrophils (Bld) [#/Vol] 4.4 10*3/uL 2.0-7.7 [facility] Work Phone: Neutrophils/100 WBC (Bld) 62.4 % 47-70 [facility] Work Phone: [phone] WBC (Bld) [#/Vol] 7.0 10*3/uL 4.4-11.0 [facility]: Blood erythrocytes count (nu mber/volume)on 01-17-2022 RBC (Bld) [#/Vol] 4.64 10*6/uL 4.6-6.2 [facility]: Blood hemoglobin measurement (mass/volume)on 01-17-2022 Hemoglobin (Bld) [Mass/Vol] 14.1 g/dL 13.0-16.5 [facility] Work Phone: [phone] Blood lymphocytes/100 leukoc yteson 01-17-2022 Lymphocytes/100 WBC (Bld) 27.0 % 19-41 [facility] Work Phone: [phone] Blood monocytes/100 leukocyt eson 01-17-2022 Monocytes/100 WBC (Bld) 9.3 % 0-10 [facility] Work Phone: Blood platelet mean volumeon 01-17-2022 Platelet mean volume (Bld) [Entitic vol] 11.1 fL 6.2-12.0 [facility] Work Phone: Determination of erythrocyte mean corpuscular volume (MCV)on 01-17-2022 MCV (RBC) [Entitic vol] 91.8 fL 80-94 [facility] Work Phone: Hematocrit Auto (Bld) [Volum e fraction]on 01-17-2022 Hematocrit (Bld) [Volume fraction] 42.6 % 40-54 [facility] Work Phone: Laboratory - Hematology and Cell countson 01-17-2022 Erythrocyte distribution width (RBC) [Entitic vol] 41.5 fL 35.1-43.9 [facility] Work Phone: Erythrocyte distribution width (RBC) [Ratio] 12.5 % 11.6-14.6 [facility] Work Phone: Immature granulocytes/100 WBC (Bld) 0.600 % 0.0-0.9 [facility] Work Phone: Comment on above: IG% - Immature Granu locytes (promyelocytes, myelocytes and metamyelocytes) > 1% indicates that a LEFT SHIFT is Present. MCH (RBC) [Entitic mass] 30.4 pg 27.0-32.0 [facility] Work Phone: Nucleated RBC/100 WBC (Bld) [Ratio] 0 % 0-5 [facility] Work Phone: MCHC Auto (RBC) [Mass/Vol]on 01-17-2022 MCHC (RBC) [Mass/Vol] 33.1 g/dL 32-36 [facility]: Platelets bldon 01-17-2022 Platelets (Bld) [#/Vol] 200 10*3/uL 150-450 [facility] Work Phone: Absolute lymphocyte counton 01-10-2022 Lymphocytes Auto (Unsp spec) [#/Vol] 2.07 10*3/uL 0.83-4.51 [facility] Work Phone: Basophil percentageon 2021 Basophils/100 WBC (Bld) 0.6 % 0-1 [facility] Work Phone: Eosinophils/100 WBC (Bld) 0.3 % 0-5 [facility] Work Phone: Neutrophils (Bld) [#/Vol] 4.2 10*3/uL 2.0-7.7 [facility] Work Phone: Neutrophils/100 WBC (Bld) 59.2 % 47-70 [facility] Work Phone: WBC (Bld) [#/Vol] 7.0 10*3/uL 4.4-11.0 [facility] Work Phone: Blood erythrocytes count (nu mber/volume)on 01-10-2022 RBC (Bld) [#/Vol] 4.83 10*6/uL 4.6-6.2 [facility] Work [facility]: Blood hemoglobin measurement (mass/volume)on 01-10-2022 Hemoglobin (Bld) [Mass/Vol] 14.8 g/dL 13.0-16.5 [facility] Work Phone: Blood lymphocytes/100 leukoc yteson 01-10-2022 Lymphocytes/100 WBC (Bld) 29.5 % 19-41 [facility] Work Phone: Blood monocytes/100 leukocyt eson 01-10-2022 Monocytes/100 WBC (Bld) 10.1 % 0-10 [facility] Work Phone: Blood platelet mean volumeon 01-10-2022 Platelet mean volume (Bld) [Entitic vol] 10.8 fL 6.2-12.0 [facility] Work Phone: Determination of erythrocyte mean corpuscular volume (MCV)on 01-10-2022 MCV (RBC) [Entitic vol] 97.5 fL 80-94 [facility] Work Phone: Hematocrit Auto (Bld) [Volum e fraction]on 01-10-2022 Hematocrit (Bld) [Volume fraction] 47.1 % 40-54 [facility] Work Phone: Laboratory - Hematology and Cell countson 01-10-2022 Erythrocyte distribution width (RBC) [Entitic vol] 44.9 fL 35.1-43.9 [facility] Work Phone: Erythrocyte distribution width (RBC) [Ratio] 12.7 % 11.6-14.6 [facility] Work Phone: Immature granulocytes/100 WBC (Bld) 0.300 % 0.0-0.9 [facility] Work Phone: Comment on above: IG% - Immature Granu locytes (promyelocytes, myelocytes and metamyelocytes) > 1% indicates that a LEFT SHIFT is Present. MCH (RBC) [Entitic mass] 30.6 pg 27.0-32.0 [facility] Work Phone: Nucleated RBC/100 WBC (Bld) [Ratio] 0 % 0-5 [facility] Work Phone: MCHC Auto (RBC) [Mass/Vol]on 01-10-2022 MCHC (RBC) [Mass/Vol] 31.4 g/dL 32-36 [facility] Work [facility]: Platelets bldon 01-10-2022 Platelets (Bld) [#/Vol] 169 10*3/uL 150-450 [facility] Work Phone: Absolute lymphocyte counton 01-04-2022 Lymphocytes Auto (Unsp spec) [#/Vol] 1.84 10*3/uL 0.83-4.51 [facility] Work Phone: Basophil percentageon 2021 Basophils/100 WBC (Bld) 0.3 % 0-1 [facility] Work Phone: Eosinophils/100 WBC (Bld) 0.3 % 0-5 [facility] Work Phone: Neutrophils (Bld) [#/Vol] 4.8 10*3/uL 2.0-7.7 [facility] Work Phone: Neutrophils/100 WBC (Bld) 64.8 % 47-70 [facility] Work Phone: WBC (Bld) [#/Vol] 7.4 10*3/uL 4.4-11.0 [facility] Work Phone: Blood erythrocytes count (nu mber/volume)on 01-04-2022 RBC (Bld) [#/Vol] 4.67 10*6/uL 4.6-6.2 [facility] Work Phone: Blood hemoglobin measurement (mass/volume)on 01-04-2022 Hemoglobin (Bld) [Mass/Vol] 14.2 g/dL 13.0-16.5 [facility] Work Phone: Blood lymphocytes/100 leukoc yteson 01-04-2022 Lymphocytes/100 WBC (Bld) 25.0 % 19-41 [facility] Work Phone: Blood monocytes/100 leukocyt eson 01-04-2022 Monocytes/100 WBC (Bld) 9.1 % 0-10 [facility] Work Phone: Blood platelet mean volumeon 01-04-2022 Platelet mean volume (Bld) [Entitic vol] 11.0 fL 6.2-12.0 [facility] Work Phone: Determination of erythrocyte mean corpuscular volume (MCV)on 01-04-2022 MCV (RBC) [Entitic vol] 91.0 fL 80-94 [facility] Work Phone: Hematocrit Auto (Bld) [Volum e fraction]on 01-04-2022 Hematocrit (Bld) [Volume fraction] 42.5 % 40-54 [facility] Work Phone: Laboratory - Hematology and Cell countson 01-04-2022 Erythrocyte distribution width (RBC) [Entitic vol] 41.4 fL 35.1-43.9 [facility] Work Phone: Erythrocyte distribution width (RBC) [Ratio] 12.7 % 11.6-14.6 [facility] Work Phone: Immature granulocytes/100 WBC (Bld) 0.500 % 0.0-0.9 [facility] Work Phone: Comment on above: IG% - Immature Granu locytes (promyelocytes, myelocytes and metamyelocytes) > 1% indicates that a LEFT SHIFT is Present. MCH (RBC) [Entitic mass] 30.4 pg 27.0-32.0 [facility] Work Phone: [phone] Nucleated RBC/100 WBC (Bld) [Ratio] 0 % 0-5 [facility] Work Phone: [phone] MCHC Auto (RBC) [Mass/Vol]on 01-04-2022 MCHC (RBC) [Mass/Vol] 33.4 g/dL 32-36 [facility] Work Phone: Platelets bldon 01-04-2022 Platelets (Bld) [#/Vol] 184 10*3/uL 150-450 [facility] Work Phone: [phone] Absolute lymphocyte counton 12-27-2021 Lymphocytes Auto (Unsp spec) [#/Vol] 1.79 10*3/uL 0.83-4.51 [facility] Work Phone: Basophil percentageon 2021 Basophils/100 WBC (Bld) 0.4 % 0-1 [facility] Work Phone: Eosinophils/100 WBC (Bld) 0.4 % 0-5 [facility] Work Phone: Neutrophils (Bld) [#/Vol] 4.9 10*3/uL 2.0-7.7 [facility] Work Phone: Neutrophils/100 WBC (Bld) 65.2 % 47-70 [facility] Work Phone: WBC (Bld) [#/Vol] 7.6 10*3/uL 4.4-11.0 [facility] Work Phone: Blood erythrocytes count (nu mber/volume)on 12-27-2021 RBC (Bld) [#/Vol] 4.66 10*6/uL 4.6-6.2 [facility] Work [facility]: Blood hemoglobin measurement (mass/volume)on 12-27-2021 Hemoglobin (Bld) [Mass/Vol] 14.5 g/dL 13.0-16.5 [facility] Work Phone: Blood lymphocytes/100 leukoc yteson 12-27-2021 Lymphocytes/100 WBC (Bld) 23.6 % 19-41 [facility] Work Phone: Blood monocytes/100 leukocyt eson 12-27-2021 Monocytes/100 WBC (Bld) 10.0 % 0-10 [facility] Work Phone: Blood platelet mean volumeon 12-27-2021 Platelet mean volume (Bld) [Entitic vol] 10.9 fL 6.2-12.0 [facility] Work Phone: Determination of erythrocyte mean corpuscular volume (MCV)on 12-27-2021 MCV (RBC) [Entitic vol] 91.0 fL 80-94 [facility] Work Phone: Hematocrit Auto (Bld) [Volum e fraction]on 12-27-2021 Hematocrit (Bld) [Volume fraction] 42.4 % 40-54 [facility] Work Phone: Laboratory - Hematology and Cell countson 12-27-2021 Erythrocyte distribution width (RBC) [Entitic vol] 41.2 fL 35.1-43.9 [facility] Work Phone: Erythrocyte distribution width (RBC) [Ratio] 12.6 % 11.6-14.6 [facility] Work Phone: Immature granulocytes/100 WBC (Bld) 0.400 % 0.0-0.9 [facility] Work Phone: Comment on above: IG% - Immature Granu locytes (promyelocytes, myelocytes and metamyelocytes) > 1% indicates that a LEFT SHIFT is Present. MCH (RBC) [Entitic mass] 31.1 pg 27.0-32.0 [facility] Work Phone: Nucleated RBC/100 WBC (Bld) [Ratio] 0 % 0-5 [facility] Work Phone: MCHC Auto (RBC) [Mass/Vol]on 12-27-2021 MCHC (RBC) [Mass/Vol] 34.2 g/dL 32-36 [facility] Work Phone: Platelets bldon 12-27-2021 Platelets (Bld) [#/Vol] 185 10*3/uL 150-450 [facility] Work Phone: Absolute lymphocyte counton 12-20-2021 Lymphocytes Auto (Unsp spec) [#/Vol] 2.02 10*3/uL 0.83-4.51 [facility] Work Phone: Basophil percentageon 2021 Basophils/100 WBC (Bld) 0.2 % 0-1 [facility] Work Phone: Eosinophils/100 WBC (Bld) 0.3 % 0-5 [facility] Work Phone: Neutrophils (Bld) [#/Vol] 3.6 10*3/uL 2.0-7.7 [facility] Work Phone: Neutrophils/100 WBC (Bld) 57.8 % 47-70 [facility] Work Phone: WBC (Bld) [#/Vol] 6.1 10*3/uL 4.4-11.0 [facility] Work Phone: Blood erythrocytes count (nu mber/volume)on 12-20-2021 RBC (Bld) [#/Vol] 4.81 10*6/uL 4.6-6.2 [facility] Work [facility]: Blood hemoglobin measurement (mass/volume)on 12-20-2021 Hemoglobin (Bld) [Mass/Vol] 14.8 g/dL 13.0-16.5 [facility] Work Phone: Blood lymphocytes/100 leukoc yteson 12-20-2021 Lymphocytes/100 WBC (Bld) 32.9 % 19-41 [facility] Work Phone: Blood monocytes/100 leukocyt eson 12-20-2021 Monocytes/100 WBC (Bld) 8.3 % 0-10 [facility] Work Phone: Blood platelet adequacy dete ction by light microscopyon 12-20-2021 Platelets LM Ql (Bld) ADEQUATE ADEQ [facility] Work Phone: Blood platelet mean volumeon 12-20-2021 Platelet mean volume (Bld) [Entitic vol] 11.1 fL 6.2-12.0 [facility] Work Phone: Determination of erythrocyte mean corpuscular volume (MCV)on 12-20-2021 MCV (RBC) [Entitic vol] 93.1 fL 80-94 [facility] Work Phone: Hematocrit Auto (Bld) [Volum e fraction]on 12-20-2021 Hematocrit (Bld) [Volume fraction] 44.8 % 40-54 [facility] Work Phone: Laboratory - Hematology and Cell countson 12-20-2021 Erythrocyte distribution width (RBC) [Entitic vol] 42.4 fL 35.1-43.9 [facility] Work Phone: Erythrocyte distribution width (RBC) [Ratio] 12.4 % 11.6-14.6 [facility] Work Phone: Immature granulocytes/100 WBC (Bld) 0.500 % 0.0-0.9 [facility] Work Phone: Comment on above: IG% - Immature Granu locytes (promyelocytes, myelocytes and metamyelocytes) > 1% indicates that a LEFT SHIFT is Present. MCH (RBC) [Entitic mass] 30.8 pg 27.0-32.0 [facility] Work Phone: [phone] Nucleated RBC/100 WBC (Bld) [Ratio] 0 % 0-5 [facility] Work Phone: MCHC Auto (RBC) [Mass/Vol]on 12-20-2021 MCHC (RBC) [Mass/Vol] 33.0 g/dL 32-36 [facility] Work Phone: [phone] Platelets bldon 12-20-2021 Platelets (Bld) [#/Vol] See comment 150-450 [facility] Work Phone: Comment on above: Please note: [...] Auto (Unsp spec) [#/Vol] 1.88 10*3/uL 0.83-4.51 [facility] Work Phone: Basophil percentageon 2021 Basophils/100 WBC (Bld) 0.6 % 0-1 [facility] Work Phone: Eosinophils/100 WBC (Bld) 0.3 % 0-5 [facility] Work Phone: [phone] Neutrophils (Bld) [#/Vol] 4.5 10*3/uL 2.0-7.7 [facility] Work Phone: Neutrophils/100 WBC (Bld) 63.6 % 47-70 [facility] Work Phone: [phone] WBC (Bld) [#/Vol] 7.1 10*3/uL 4.4-11.0 [facility] Work Phone: Blood erythrocytes count (nu mber/volume)on 12-13-2021 RBC (Bld) [#/Vol] 4.70 10*6/uL 4.6-6.2 [facility] Work [facility]: Blood hemoglobin measurement (mass/volume)on 12-13-2021 Hemoglobin (Bld) [Mass/Vol] 14.4 g/dL 13.0-16.5 [facility] Work Phone: Blood lymphocytes/100 leukoc yteson 12-13-2021 Lymphocytes/100 WBC (Bld) 26.7 % 19-41 [facility] Work Phone: Blood monocytes/100 leukocyt eson 12-13-2021 Monocytes/100 WBC (Bld) 8.5 % 0-10 [facility] Work Phone: Blood platelet mean volumeon 12-13-2021 Platelet mean volume (Bld) [Entitic vol] 10.9 fL 6.2-12.0 [facility] Work Phone: Determination of erythrocyte mean corpuscular volume (MCV)on 12-13-2021 MCV (RBC) [Entitic vol] 90.9 fL 80-94 [facility] Work Phone: Hematocrit Auto (Bld) [Volum e fraction]on 12-13-2021 Hematocrit (Bld) [Volume fraction] 42.7 % 40-54 [facility] Work Phone: Laboratory - Hematology and Cell countson 12-13-2021 Erythrocyte distribution width (RBC) [Entitic vol] 42.1 fL 35.1-43.9 [facility] Work Phone: Erythrocyte distribution width (RBC) [Ratio] 12.6 % 11.6-14.6 [facility] Work Phone: Immature granulocytes/100 WBC (Bld) 0.300 % 0.0-0.9 [facility] Work Phone: Comment on above: IG% - Immature Granu locytes (promyelocytes, myelocytes and metamyelocytes) > 1% indicates that a LEFT SHIFT is Present. MCH (RBC) [Entitic mass] 30.6 pg 27.0-32.0 [facility] Work Phone: Nucleated RBC/100 WBC (Bld) [Ratio] 0 % 0-5 [facility] Work Phone: MCHC Auto (RBC) [Mass/Vol]on 12-13-2021 MCHC (RBC) [Mass/Vol] 33.7 g/dL 32-36 [facility] Work [facility]: Platelets bldon 12-13-2021 Platelets (Bld) [#/Vol] 194 10*3/uL 150-450 [facility] Work Phone: Absolute lymphocyte counton 12-06-2021 Lymphocytes Auto (Unsp spec) [#/Vol] 1.91 10*3/uL 0.83-4.51 [facility] Work Phone: Basophil percentageon 2021 Basophils/100 WBC (Bld) 0.4 % 0-1 [facility] Work Phone: Eosinophils/100 WBC (Bld) 0.3 % 0-5 [facility] Work Phone: Neutrophils (Bld) [#/Vol] 4.4 10*3/uL 2.0-7.7 [facility] Work Phone: Neutrophils/100 WBC (Bld) 62.2 % 47-70 [facility] Work Phone: WBC (Bld) [#/Vol] 7.0 10*3/uL 4.4-11.0 [facility] Work [facility]: Blood erythrocytes count (nu mber/volume)on 12-06-2021 RBC (Bld) [#/Vol] 4.58 10*6/uL 4.6-6.2 [facility] Work Phone: [phone] Blood hemoglobin measurement (mass/volume)on 12-06-2021 Hemoglobin (Bld) [Mass/Vol] 13.8 g/dL 13.0-16.5 [facility] Work Phone: Blood lymphocytes/100 leukoc yteson 12-06-2021 Lymphocytes/100 WBC (Bld) 27.2 % 19-41 [facility] Work Phone: Blood monocytes/100 leukocyt eson 12-06-2021 Monocytes/100 WBC (Bld) 9.6 % 0-10 [facility] Work Phone: Blood platelet mean volumeon 12-06-2021 Platelet mean volume (Bld) [Entitic vol] 11.1 fL 6.2-12.0 [facility] Work Phone: Determination of erythrocyte mean corpuscular volume (MCV)on 12-06-2021 MCV (RBC) [Entitic vol] 92.1 fL 80-94 [facility] Work Phone: Hematocrit Auto (Bld) [Volum e fraction]on 12-06-2021 Hematocrit (Bld) [Volume fraction] 42.2 % 40-54 [facility] Work Phone: Laboratory - Hematology and Cell countson 12-06-2021 Erythrocyte distribution width (RBC) [Entitic vol] 42.1 fL 35.1-43.9 [facility] Work Phone: Erythrocyte distribution width (RBC) [Ratio] 12.6 % 11.6-14.6 [facility] Work Phone: Immature granulocytes/100 WBC (Bld) 0.300 % 0.0-0.9 [facility] Work Phone: Comment on above: IG% - Immature Granu locytes (promyelocytes, myelocytes and metamyelocytes) > 1% indicates that a LEFT SHIFT is Present. MCH (RBC) [Entitic mass] 30.1 pg 27.0-32.0 [facility] Work Phone: Nucleated RBC/100 WBC (Bld) [Ratio] 0 % 0-5 [facility] Work Phone: MCHC Auto (RBC) [Mass/Vol]on 12-06-2021 MCHC (RBC) [Mass/Vol] 32.7 g/dL 32-36 [facility] Work Phone: [phone] Platelets bldon 12-06-2021 Platelets (Bld) [#/Vol] 180 10*3/uL 150-450 [facility] Work Phone: Absolute lymphocyte counton 11-29-2021 Lymphocytes Auto (Unsp spec) [#/Vol] 2.00 10*3/uL 0.83-4.51 [facility] Work Phone: Basophil percentageon 2021 Basophils/100 WBC (Bld) 0.4 % 0-1 W [facility] Work Phone: [phone] Eosinophils/100 WBC (Bld) 0.3 % 0-5 [facility] Work Phone: Neutrophils (Bld) [#/Vol] 4.4 10*3/uL 2.0-7.7 [facility] Work Phone: Neutrophils/100 WBC (Bld) 62.8 % 47-70 [facility] Work Phone: WBC (Bld) [#/Vol] 7.0 10*3/uL 4.4-11.0 [facility] Work Phone: Blood erythrocytes count (nu mber/volume)on 11-29-2021 RBC (Bld) [#/Vol] 4.72 10*6/uL 4.6-6.2 [facility]: Blood hemoglobin measurement (mass/volume)on 11-29-2021 Hemoglobin (Bld) [Mass/Vol] 14.6 g/dL 13.0-16.5 [facility] Work Phone: [phone] Blood lymphocytes/100 leukoc yteson 11-29-2021 Lymphocytes/100 WBC (Bld) 28.6 % 19-41 [facility] Work Phone: Blood monocytes/100 leukocyt eson 11-29-2021 Monocytes/100 WBC (Bld) 7.6 % 0-10 W [facility] Work Phone: Blood platelet mean volumeon 11-29-2021 Platelet mean volume (Bld) [Entitic vol] 11.1 fL 6.2-12.0 [facility] Work Phone: Determination of erythrocyte mean corpuscular volume (MCV)on 11-29-2021 MCV (RBC) [Entitic vol] 91.9 fL 80-94 W [facility] Work Phone: Hematocrit Auto (Bld) [Volum e fraction]on 11-29-2021 Hematocrit (Bld) [Volume fraction] 43.4 % 40-54 [facility] Work Phone: Laboratory - Hematology and Cell countson 11-29-2021 Erythrocyte distribution width (RBC) [Entitic vol] 41.8 fL 35.1-43.9 [facility] Work Phone: Erythrocyte distribution width (RBC) [Ratio] 12.4 % 11.6-14.6 [facility] Work Phone: Immature granulocytes/100 WBC (Bld) 0.300 % 0.0-0.9 [facility] Work Phone: Comment on above: IG% - Immature Granu locytes (promyelocytes, myelocytes and metamyelocytes) > 1% indicates that a LEFT SHIFT is Present. MCH (RBC) [Entitic mass] 30.9 pg 27.0-32.0 [facility] Work Phone: Nucleated RBC/100 WBC (Bld) [Ratio] 0 % 0-5 [facility] Work Phone: MCHC Auto (RBC) [Mass/Vol]on 11-29-2021 MCHC (RBC) [Mass/Vol] 33.6 g/dL 32-36 [facility]: Platelets bldon 11-29-2021 Platelets (Bld) [#/Vol] 205 10*3/uL 150-450 [facility] Work Phone: [phone] Absolute lymphocyte counton 11-22-2021 Lymphocytes Auto (Unsp spec) [#/Vol] 2.25 10*3/uL 0.83-4.51 [facility] Work Phone: [phone] Basophil percentageon 2021 Basophils/100 WBC (Bld) 0.4 % 0-1 W [facility] Work Phone: Eosinophils/100 WBC (Bld) 0.4 % 0-5 [facility] Work Phone: Neutrophils (Bld) [#/Vol] 5.1 10*3/uL 2.0-7.7 [facility] Work Phone: [phone] Neutrophils/100 WBC (Bld) 61.7 % 47-70 [facility] Work Phone: [phone] WBC (Bld) [#/Vol] 8.3 10*3/uL 4.4-11.0 [facility] Work [facility]: Blood erythrocytes count (nu mber/volume)on 11-22-2021 RBC (Bld) [#/Vol] 4.47 10*6/uL 4.6-6.2 [facility] Work [facility]: Blood hemoglobin measurement (mass/volume)on 11-22-2021 Hemoglobin (Bld) [Mass/Vol] 13.5 g/dL 13.0-16.5 [facility] Work Phone: [phone] Blood lymphocytes/100 leukoc yteson 11-22-2021 Lymphocytes/100 WBC (Bld) 27.2 % 19-41 [facility] Work Phone: Blood monocytes/100 leukocyt eson 11-22-2021 Monocytes/100 WBC (Bld) 9.9 % 0-10 W [facility] Work Phone: [phone] Blood platelet mean volumeon 11-22-2021 Platelet mean volume (Bld) [Entitic vol] 11.1 fL 6.2-12.0 [facility] Work Phone: Determination of erythrocyte mean corpuscular volume (MCV)on 11-22-2021 MCV (RBC) [Entitic vol] 92.2 fL 80-94 W [facility] Work Phone: Hematocrit Auto (Bld) [Volum e fraction]on 11-22-2021 Hematocrit (Bld) [Volume fraction] 41.2 % 40-54 [facility] Work Phone: Laboratory - Hematology and Cell countson 11-22-2021 Erythrocyte distribution width (RBC) [Entitic vol] 42.3 fL 35.1-43.9 [facility] Work Phone: Erythrocyte distribution width (RBC) [Ratio] 12.6 % 11.6-14.6 [facility] Work Phone: Immature granulocytes/100 WBC (Bld) 0.400 % 0.0-0.9 [facility] Work Phone: Comment on above: IG% - Immature Granu locytes (promyelocytes, myelocytes and metamyelocytes) > 1% indicates that a LEFT SHIFT is Present. MCH (RBC) [Entitic mass] 30.2 pg 27.0-32.0 [facility] Work Phone: Nucleated RBC/100 WBC (Bld) [Ratio] 0 % 0-5 [facility] Work Phone: MCHC Auto (RBC) [Mass/Vol]on 11-22-2021 MCHC (RBC) [Mass/Vol] 32.8 g/dL 32-36 [facility] Work [facility]: Platelets bldon 11-22-2021 Platelets (Bld) [#/Vol] 190 10*3/uL 150-450 [facility] Work Phone: Absolute lymphocyte counton 11-15-2021 Lymphocytes Auto (Unsp spec) [#/Vol] 2.09 10*3/uL 0.83-4.51 [facility] Work Phone: Basophil percentageon 2021 Basophils/100 WBC (Bld) 0.6 % 0-1 W [facility] Work Phone: Eosinophils/100 WBC (Bld) 0.4 % 0-5 [facility] Work Phone: Neutrophils (Bld) [#/Vol] 4.2 10*3/uL 2.0-7.7 [facility] Work Phone: Neutrophils/100 WBC (Bld) 59.1 % 47-70 [facility] Work Phone: [phone] WBC (Bld) [#/Vol] 7.1 10*3/uL 4.4-11.0 [facility] Work Phone: Blood erythrocytes count (nu mber/volume)on 11-15-2021 RBC (Bld) [#/Vol] 4.72 10*6/uL 4.6-6.2 [facility] Work Phone: [phone] Blood hemoglobin measurement (mass/volume)on 11-15-2021 Hemoglobin (Bld) [Mass/Vol] 14.6 g/dL 13.0-16.5 [facility] Work Phone: Blood lymphocytes/100 leukoc yteson 11-15-2021 Lymphocytes/100 WBC (Bld) 29.4 % 19-41 [facility] Work Phone: Blood monocytes/100 leukocyt eson 11-15-2021 Monocytes/100 WBC (Bld) 10.1 % 0-10 W [facility] Work Phone: Blood platelet mean volumeon 11-15-2021 Platelet mean volume (Bld) [Entitic vol] 10.7 fL 6.2-12.0 [facility] Work Phone: [phone] Determination of erythrocyte mean corpuscular volume (MCV)on 11-15-2021 MCV (RBC) [Entitic vol] 91.9 fL 80-94 W [facility] Work Phone: Hematocrit Auto (Bld) [Volum e fraction]on 11-15-2021 Hematocrit (Bld) [Volume fraction] 43.4 % 40-54 [facility] Work Phone: Laboratory - Hematology and Cell countson 11-15-2021 Erythrocyte distribution width (RBC) [Entitic vol] 41.9 fL 35.1-43.9 [facility] Work Phone: Erythrocyte distribution width (RBC) [Ratio] 12.4 % 11.6-14.6 [facility] Work [phone] Immature granulocytes/100 WBC (Bld) 0.400 % 0.0-0.9 [facility] Work Phone: Comment on above: IG% - Immature Granu locytes (promyelocytes, myelocytes and metamyelocytes) > 1% indicates that a LEFT SHIFT is Present. MCH (RBC) [Entitic mass] 30.9 pg 27.0-32.0 [facility] Work Phone: Nucleated RBC/100 WBC (Bld) [Ratio] 0 % 0-5 [facility] Work Phone: MCHC Auto (RBC) [Mass/Vol]on 11-15-2021 MCHC (RBC) [Mass/Vol] 33.6 g/dL 32-36 [facility] Work Phone: [phone] Platelets bldon 11-15-2021 Platelets (Bld) [#/Vol] 191 10*3/uL 150-450 [facility] Work Phone: [phone] Absolute lymphocyte counton 11-08-2021 Lymphocytes Auto (Unsp spec) [#/Vol] 1.97 10*3/uL 0.83-4.51 [facility] Work Phone: [phone] Basophil percentageon 2021 Basophils/100 WBC (Bld) 0.3 % 0-1 W [facility] Work Phone: [phone] Eosinophils/100 WBC (Bld) 0.3 % 0-5 [facility] Work Phone: Neutrophils (Bld) [#/Vol] 5.1 10*3/uL 2.0-7.7 [facility] Work Phone: Neutrophils/100 WBC (Bld) 64.6 % 47-70 [facility] Work Phone: WBC (Bld) [#/Vol] 7.8 10*3/uL 4.4-11.0 [facility] Work [facility]: Blood erythrocytes count (nu mber/volume)on 11-08-2021 RBC (Bld) [#/Vol] 4.53 10*6/uL 4.6-6.2 [facility] Work [facility]: Blood hemoglobin measurement (mass/volume)on 11-08-2021 Hemoglobin (Bld) [Mass/Vol] 14.2 g/dL 13.0-16.5 [facility] Work Phone: Blood lymphocytes/100 leukoc yteson 11-08-2021 Lymphocytes/100 WBC (Bld) 25.2 % 19-41 [facility] Work Phone: Blood monocytes/100 leukocyt eson 11-08-2021 Monocytes/100 WBC (Bld) 9.3 % 0-10 W [facility] Work Phone: Blood platelet mean volumeon 11-08-2021 Platelet mean volume (Bld) [Entitic vol] 10.9 fL 6.2-12.0 [facility] Work Phone: Determination of erythrocyte mean corpuscular volume (MCV)on 11-08-2021 MCV (RBC) [Entitic vol] 92.7 fL 80-94 W [facility] Work Phone: Hematocrit Auto (Bld) [Volum e fraction]on 11-08-2021 Hematocrit (Bld) [Volume fraction] 42.0 % 40-54 [facility] Work Phone: Laboratory - Hematology and Cell countson 11-08-2021 Erythrocyte distribution width (RBC) [Entitic vol] 42.3 fL 35.1-43.9 [facility] Work Phone: Erythrocyte distribution width (RBC) [Ratio] 12.5 % 11.6-14.6 [facility] Work Phone: Immature granulocytes/100 WBC (Bld) 0.300 % 0.0-0.9 [facility] Work Phone: Comment on above: IG% - Immature Granu locytes (promyelocytes, myelocytes and metamyelocytes) > 1% indicates that a LEFT SHIFT is Present. MCH (RBC) [Entitic mass] 31.3 pg 27.0-32.0 [facility] Work Phone: Nucleated RBC/100 WBC (Bld) [Ratio] 0 % 0-5 [facility] Work Phone: MCHC Auto (RBC) [Mass/Vol]on 11-08-2021 MCHC (RBC) [Mass/Vol] 33.8 g/dL 32-36 [facility] Work Phone: Platelets bldon 11-08-2021 Platelets (Bld) [#/Vol] 207 10*3/uL 150-450 [facility] Work Phone: Absolute lymphocyte counton 10-25-2021 Lymphocytes Auto (Unsp spec) [#/Vol] 2.05 10*3/uL 0.83-4.51 [facility] Work Phone: Basophil percentageon 2021 Basophils/100 WBC (Bld) 0.4 % 0-1 W [facility] Work Phone: Eosinophils/100 WBC (Bld) 0.3 % 0-5 [facility] Work Phone: Neutrophils (Bld) [#/Vol] 4.2 10*3/uL 2.0-7.7 [facility] Work Phone: Neutrophils/100 WBC (Bld) 61.3 % 47-70 [facility] Work Phone: WBC (Bld) [#/Vol] 6.8 10*3/uL 4.4-11.0 [facility] Work Phone: Blood erythrocytes count (nu mber/volume)on 10-25-2021 RBC (Bld) [#/Vol] 4.56 10*6/uL 4.6-6.2 [facility] Work Phone: Blood hemoglobin measurement (mass/volume)on 10-25-2021 Hemoglobin (Bld) [Mass/Vol] 13.9 g/dL 13.0-16.5 [facility] Work Phone: Blood lymphocytes/100 leukoc yteson 10-25-2021 Lymphocytes/100 WBC (Bld) 30.1 % 19-41 [facility] Work Phone: Blood monocytes/100 leukocyt eson 10-25-2021 Monocytes/100 WBC (Bld) 7.3 % 0-10 W [facility] Work Phone: Blood platelet mean volumeon 10-25-2021 Platelet mean volume (Bld) [Entitic vol] 10.6 fL 6.2-12.0 [facility] Work Phone: Determination of erythrocyte mean corpuscular volume (MCV)on 10-25-2021 MCV (RBC) [Entitic vol] 91.0 fL 80-94 W [facility] Work Phone: Hematocrit Auto (Bld) [Volum e fraction]on 10-25-2021 Hematocrit (Bld) [Volume fraction] 41.5 % 40-54 [facility] Work Phone: Laboratory - Hematology and Cell countson 10-25-2021 Erythrocyte distribution width (RBC) [Entitic vol] 41.7 fL 35.1-43.9 [facility] Work Phone: Erythrocyte distribution width (RBC) [Ratio] 12.6 % 11.6-14.6 [facility] Work Phone: Immature granulocytes/100 WBC (Bld) 0.600 % 0.0-0.9 [facility] Work Phone: [phone] Comment on above: IG% - Immature Granu locytes (promyelocytes, myelocytes and metamyelocytes) > 1% indicates that a LEFT SHIFT is Present. MCH (RBC) [Entitic mass] 30.5 pg 27.0-32.0 [facility] Work Phone: Nucleated RBC/100 WBC (Bld) [Ratio] 0 % 0-5 [facility] Work Phone: MCHC Auto (RBC) [Mass/Vol]on 10-25-2021 MCHC (RBC) [Mass/Vol] 33.5 g/dL 32-36 [facility] Work Phone: Platelets bldon 10-25-2021 Platelets (Bld) [#/Vol] 191 10*3/uL 150-450 [facility] Work Phone: [phone] Absolute lymphocyte counton 10-18-2021 Lymphocytes Auto (Unsp spec) [#/Vol] 1.66 10*3/uL 0.83-4.51 [facility] Work Phone: Basophil percentageon 2021 Basophils/100 WBC (Bld) 0.5 % 0-1 W [facility] Work Phone: Eosinophils/100 WBC (Bld) 0.2 % 0-5 [facility] Work Phone: Neutrophils (Bld) [#/Vol] 4.3 10*3/uL 2.0-7.7 [facility] Work Phone: Neutrophils/100 WBC (Bld) 65.0 % 47-70 [facility] Work Phone: WBC (Bld) [#/Vol] 6.6 10*3/uL 4.4-11.0 [facility] Work [facility]: Blood erythrocytes count (nu mber/volume)on 10-18-2021 RBC (Bld) [#/Vol] 4.57 10*6/uL 4.6-6.2 [facility] Work Phone: Blood hemoglobin measurement (mass/volume)on 10-18-2021 Hemoglobin (Bld) [Mass/Vol] 14.1 g/dL 13.0-16.5 [facility] Work Phone: Blood lymphocytes/100 leukoc yteson 10-18-2021 Lymphocytes/100 WBC (Bld) 25.2 % 19-41 [facility] Work Phone: Blood monocytes/100 leukocyt eson 10-18-2021 Monocytes/100 WBC (Bld) 8.8 % 0-10 W [facility] Work Phone: Blood platelet mean volumeon 10-18-2021 Platelet mean volume (Bld) [Entitic vol] 10.6 fL 6.2-12.0 [facility] Work Phone: Determination of erythrocyte mean corpuscular volume (MCV)on 10-18-2021 MCV (RBC) [Entitic vol] 91.7 fL 80-94 W [facility] Work Phone: Hematocrit Auto (Bld) [Volum e fraction]on 10-18-2021 Hematocrit (Bld) [Volume fraction] 41.9 % 40-54 [facility] Work Phone: Laboratory - Hematology and Cell countson 10-18-2021 Erythrocyte distribution width (RBC) [Entitic vol] 41.6 fL 35.1-43.9 [facility] Work Phone: Erythrocyte distribution width (RBC) [Ratio] 12.5 % 11.6-14.6 [facility] Work Phone: Immature granulocytes/100 WBC (Bld) 0.300 % 0.0-0.9 [facility] Work Phone: Comment on above: IG% - Immature Granu locytes (promyelocytes, myelocytes and metamyelocytes) > 1% indicates that a LEFT SHIFT is Present. MCH (RBC) [Entitic mass] 30.9 pg 27.0-32.0 [facility] Work Phone: Nucleated RBC/100 WBC (Bld) [Ratio] 0 % 0-5 [facility] Work Phone: [phone] MCHC Auto (RBC) [Mass/Vol]on 10-18-2021 MCHC (RBC) [Mass/Vol] 33.7 g/dL 32-36 [facility] Work Phone: [phone] Platelets bldon 10-18-2021 Platelets (Bld) [#/Vol] 185 10*3/uL 150-450 [facility] Work Phone: Absolute lymphocyte counton 10-11-2021 Lymphocytes Auto (Unsp spec) [#/Vol] 1.66 10*3/uL 0.83-4.51 [facility] Work Phone: Basophil percentageon 2021 Basophils/100 WBC (Bld) 0.5 % 0-1 W [facility] Work Phone: [phone] Eosinophils/100 WBC (Bld) 0.1 % 0-5 [facility] Work Phone: [phone] Neutrophils (Bld) [#/Vol] 5.9 10*3/uL 2.0-7.7 [facility] Work Phone: [phone] Neutrophils/100 WBC (Bld) 70.8 % 47-70 [facility] Work Phone: WBC (Bld) [#/Vol] 8.3 10*3/uL 4.4-11.0 [facility] Work Phone: Blood erythrocytes count (nu mber/volume)on 10-11-2021 RBC (Bld) [#/Vol] 4.66 10*6/uL 4.6-6.2 [facility] Work Phone: Blood hemoglobin measurement (mass/volume)on 10-11-2021 Hemoglobin (Bld) [Mass/Vol] 14.1 g/dL 13.0-16.5 [facility] Work Phone: [phone] Blood lymphocytes/100 leukoc yteson 10-11-2021 Lymphocytes/100 WBC (Bld) 20.0 % 19-41 [facility] Work Phone: Blood monocytes/100 leukocyt eson 10-11-2021 Monocytes/100 WBC (Bld) 8.2 % 0-10 W [facility] Work Phone: Blood platelet mean volumeon 10-11-2021 Platelet mean volume (Bld) [Entitic vol] 10.7 fL 6.2-12.0 [facility] Work Phone: Determination of erythrocyte mean corpuscular volume (MCV)on 10-11-2021 MCV (RBC) [Entitic vol] 91.8 fL 80-94 W [facility] Work Phone: Hematocrit Auto (Bld) [Volum e fraction]on 10-11-2021 Hematocrit (Bld) [Volume fraction] 42.8 % 40-54 [facility] Work Phone: Laboratory - Hematology and Cell countson 10-11-2021 Erythrocyte distribution width (RBC) [Entitic vol] 42.8 fL 35.1-43.9 [facility] Work Phone: Erythrocyte distribution width (RBC) [Ratio] 12.8 % 11.6-14.6 [facility] Work Phone: Immature granulocytes/100 WBC (Bld) 0.400 % 0.0-0.9 [facility] Work Phone: Comment on above: IG% - Immature Granu locytes (promyelocytes, myelocytes and metamyelocytes) > 1% indicates that a LEFT SHIFT is Present. MCH (RBC) [Entitic mass] 30.3 pg 27.0-32.0 [facility] Work Phone: Nucleated RBC/100 WBC (Bld) [Ratio] 0 % 0-5 [facility] Work Phone: MCHC Auto (RBC) [Mass/Vol]on 10-11-2021 MCHC (RBC) [Mass/Vol] 32.9 g/dL 32-36 [facility] Work Phone: Platelets bldon 10-11-2021 Platelets (Bld) [#/Vol] 193 10*3/uL 150-450 [facility] Work Phone: [phone] Absolute lymphocyte counton 10-04-2021 Lymphocytes Auto (Unsp spec) [#/Vol] 1.97 10*3/uL 0.83-4.51 [facility] Work Phone: Basophil percentageon 2021 Basophils/100 WBC (Bld) 0.5 % 0-1 W [facility] Work Phone: Eosinophils/100 WBC (Bld) 0.1 % 0-5 [facility] Work Phone: [phone] Neutrophils (Bld) [#/Vol] 5.0 10*3/uL 2.0-7.7 [facility] Work Phone: Neutrophils/100 WBC (Bld) 64.4 % 47-70 [facility] Work Phone: WBC (Bld) [#/Vol] 7.7 10*3/uL 4.4-11.0 [facility] Work Phone: Blood erythrocytes count (nu mber/volume)on 10-04-2021 RBC (Bld) [#/Vol] 4.52 10*6/uL 4.6-6.2 [facility] Work Phone: Blood hemoglobin measurement (mass/volume)on 10-04-2021 Hemoglobin (Bld) [Mass/Vol] 13.9 g/dL 13.0-16.5 [facility] Work Phone: [phone] Blood lymphocytes/100 leukoc yteson 10-04-2021 Lymphocytes/100 WBC (Bld) 25.6 % 19-41 [facility] Work Phone: Blood monocytes/100 leukocyt eson 10-04-2021 Monocytes/100 WBC (Bld) 9.0 % 0-10 W [facility] Work Phone: [phone] Blood platelet mean volumeon 10-04-2021 Platelet mean volume (Bld) [Entitic vol] 11.0 fL 6.2-12.0 [facility] Work Phone: Determination of erythrocyte mean corpuscular volume (MCV)on 10-04-2021 MCV (RBC) [Entitic vol] 91.4 fL 80-94 W [facility] Work Phone: Hematocrit Auto (Bld) [Volum e fraction]on 10-04-2021 Hematocrit (Bld) [Volume fraction] 41.3 % 40-54 [facility] Work Phone: Laboratory - Hematology and Cell countson 10-04-2021 Erythrocyte distribution width (RBC) [Entitic vol] 42.2 fL 35.1-43.9 [facility] Work Phone: Erythrocyte distribution width (RBC) [Ratio] 12.8 % 11.6-14.6 [facility] Work Phone: Immature granulocytes/100 WBC (Bld) 0.400 % 0.0-0.9 [facility] Work Phone: Comment on above: IG% - Immature Granu locytes (promyelocytes, myelocytes and metamyelocytes) > 1% indicates that a LEFT SHIFT is Present. MCH (RBC) [Entitic mass] 30.8 pg 27.0-32.0 [facility] Work Phone: Nucleated RBC/100 WBC (Bld) [Ratio] 0 % 0-5 [facility] Work Phone: MCHC Auto (RBC) [Mass/Vol]on 10-04-2021 MCHC (RBC) [Mass/Vol] 33.7 g/dL 32-36 [facility] Work Phone: Platelets bldon 10-04-2021 Platelets (Bld) [#/Vol] 179 10*3/uL 150-450 [facility] Work Phone: Absolute lymphocyte counton 09-28-2021 Lymphocytes Auto (Unsp spec) [#/Vol] 2.10 10*3/uL 0.83-4.51 [facility] Work Phone: Basophil percentageon 2021 Basophils/100 WBC (Bld) 0.4 % 0-1 W [facility] Work Phone: Eosinophils/100 WBC (Bld) 0.3 % 0-5 [facility] Work Phone: Neutrophils (Bld) [#/Vol] 4.3 10*3/uL 2.0-7.7 [facility] Work Phone: Neutrophils/100 WBC (Bld) 59.9 % 47-70 [facility] Work Phone: WBC (Bld) [#/Vol] 7.2 10*3/uL 4.4-11.0 [facility] Work Phone: Blood erythrocytes count (nu mber/volume)on 09-28-2021 RBC (Bld) [#/Vol] 4.34 10*6/uL 4.6-6.2 [facility] Work [facility]: Blood hemoglobin measurement (mass/volume)on 09-28-2021 Hemoglobin (Bld) [Mass/Vol] 13.3 g/dL 13.0-16.5 [facility] Work Phone: Blood lymphocytes/100 leukoc yteson 09-28-2021 Lymphocytes/100 WBC (Bld) 29.3 % 19-41 [facility] Work Phone: Blood monocytes/100 leukocyt eson 09-28-2021 Monocytes/100 WBC (Bld) 9.8 % 0-10 W [facility] Work Phone: [phone] Blood platelet mean volumeon 09-28-2021 Platelet mean volume (Bld) [Entitic vol] 10.7 fL 6.2-12.0 [facility] Work Phone: Determination of erythrocyte mean corpuscular volume (MCV)on 09-28-2021 MCV (RBC) [Entitic vol] 91.2 fL 80-94 W [facility] Work Phone: Hematocrit Auto (Bld) [Volum e fraction]on 09-28-2021 Hematocrit (Bld) [Volume fraction] 39.6 % 40-54 [facility] Work Phone: Laboratory - Hematology and Cell countson 09-28-2021 Erythrocyte distribution width (RBC) [Entitic vol] 41.8 fL 35.1-43.9 [facility] Work Phone: Erythrocyte distribution width (RBC) [Ratio] 12.6 % 11.6-14.6 [facility] Work Phone: Immature granulocytes/100 WBC (Bld) 0.300 % 0.0-0.9 [facility] Work Phone: Comment on above: IG% - Immature Granu locytes (promyelocytes, myelocytes and metamyelocytes) > 1% indicates that a LEFT SHIFT is Present. MCH (RBC) [Entitic mass] 30.6 pg 27.0-32.0 [facility] Work Phone: Nucleated RBC/100 WBC (Bld) [Ratio] 0 % 0-5 [facility] Work Phone: MCHC Auto (RBC) [Mass/Vol]on 09-28-2021 MCHC (RBC) [Mass/Vol] 33.6 g/dL 32-36 [facility] Work Phone: Platelets bldon 09-28-2021 Platelets (Bld) [#/Vol] 181 10*3/uL 150-450 [facility] Work Phone: Absolute lymphocyte counton 09-20-2021 Lymphocytes Auto (Unsp spec) [#/Vol] 1.79 10*3/uL 0.83-4.51 [facility] Work Phone: Basophil percentageon 2021 Basophils/100 WBC (Bld) 0.4 % 0-1 W [facility] Work Phone: Eosinophils/100 WBC (Bld) 0.3 % 0-5 [facility] Work Phone: Neutrophils (Bld) [#/Vol] 4.1 10*3/uL 2.0-7.7 [facility] Work Phone: Neutrophils/100 WBC (Bld) 61.3 % 47-70 [facility] Work Phone: WBC (Bld) [#/Vol] 6.7 10*3/uL 4.4-11.0 [facility] Work Phone: Blood erythrocytes count (nu mber/volume)on 09-20-2021 RBC (Bld) [#/Vol] 4.32 10*6/uL 4.6-6.2 [facility] Work Phone: Blood hemoglobin measurement (mass/volume)on 09-20-2021 Hemoglobin (Bld) [Mass/Vol] 13.6 g/dL 13.0-16.5 [facility] Work Phone: Blood lymphocytes/100 leukoc yteson 09-20-2021 Lymphocytes/100 WBC (Bld) 26.8 % 19-41 [facility] Work Phone: Blood monocytes/100 leukocyt eson 09-20-2021 Monocytes/100 WBC (Bld) 10.8 % 0-10 W [facility] Work Phone: Blood platelet mean volumeon 09-20-2021 Platelet mean volume (Bld) [Entitic vol] 10.7 fL 6.2-12.0 [facility] Work Phone: Determination of erythrocyte mean corpuscular volume (MCV)on 09-20-2021 MCV (RBC) [Entitic vol] 93.1 fL 80-94 W [facility] Work Phone: Hematocrit Auto (Bld) [Volum e fraction]on 09-20-2021 Hematocrit (Bld) [Volume fraction] 40.2 % 40-54 [facility] Work Phone: Laboratory - Hematology and Cell countson 09-20-2021 Erythrocyte distribution width (RBC) [Entitic vol] 43.0 fL 35.1-43.9 [facility] Work Phone: [phone] Erythrocyte distribution width (RBC) [Ratio] 12.6 % 11.6-14.6 [facility] Work Phone: [phone] Immature granulocytes/100 WBC (Bld) 0.400 % 0.0-0.9 [facility] Work Phone: [phone] Comment on above: IG% - Immature Granu locytes (promyelocytes, myelocytes and metamyelocytes) > 1% indicates that a LEFT SHIFT is Present. MCH (RBC) [Entitic mass] 31.5 pg 27.0-32.0 [facility] Work Phone: [phone] Nucleated RBC/100 WBC (Bld) [Ratio] 0 % 0-5 [facility] Work Phone: MCHC Auto (RBC) [Mass/Vol]on 09-20-2021 MCHC (RBC) [Mass/Vol] 33.8 g/dL 32-36 [facility] Work Phone: Platelets bldon 09-20-2021 Platelets (Bld) [#/Vol] 170 10*3/uL 150-450 [facility] Work Phone: [phone] Absolute lymphocyte counton 09-13-2021 Lymphocytes Auto (Unsp spec) [#/Vol] 1.85 10*3/uL 0.83-4.51 [facility] Work Phone: Basophil percentageon 2021 Basophils/100 WBC (Bld) 0.6 % 0-1 [facility] Work Phone: Eosinophils/100 WBC (Bld) 0.3 % 0-5 [facility] Work Phone: Neutrophils (Bld) [#/Vol] 4.3 10*3/uL 2.0-7.7 [facility] Work Phone: [phone] Neutrophils/100 WBC (Bld) 63.1 % 47-70 [facility] Work Phone: WBC (Bld) [#/Vol] 6.7 10*3/uL 4.4-11.0 [facility]: Blood erythrocytes count (nu mber/volume)on 09-13-2021 RBC (Bld) [#/Vol] 4.63 10*6/uL 4.6-6.2 [facility]: Blood hemoglobin measurement (mass/volume)on 09-13-2021 Hemoglobin (Bld) [Mass/Vol] 14.2 g/dL 13.0-16.5 [facility] Work Phone: Blood lymphocytes/100 leukoc yteson 09-13-2021 Lymphocytes/100 WBC (Bld) 27.5 % 19-41 [facility] Work Phone: Blood monocytes/100 leukocyt eson 09-13-2021 Monocytes/100 WBC (Bld) 8.2 % 0-10 [facility] Work Phone: Blood platelet mean volumeon 09-13-2021 Platelet mean volume (Bld) [Entitic vol] 11.0 fL 6.2-12.0 [facility] Work Phone: Determination of erythrocyte mean corpuscular volume (MCV)on 09-13-2021 MCV (RBC) [Entitic vol] 93.5 fL 80-94 [facility] Work Phone: Hematocrit Auto (Bld) [Volum e fraction]on 09-13-2021 Hematocrit (Bld) [Volume fraction] 43.3 % 40-54 [facility] Work Phone: Laboratory - Hematology and Cell countson 09-13-2021 Erythrocyte distribution width (RBC) [Entitic vol] 43.0 fL 35.1-43.9 [facility] Work Phone: Erythrocyte distribution width (RBC) [Ratio] 12.6 % 11.6-14.6 [facility] Work Phone: Immature granulocytes/100 WBC (Bld) 0.300 % 0.0-0.9 [facility] Work Phone: Comment on above: IG% - Immature Granu locytes (promyelocytes, myelocytes and metamyelocytes) > 1% indicates that a LEFT SHIFT is Present. MCH (RBC) [Entitic mass] 30.7 pg 27.0-32.0 [facility] Work Phone: Nucleated RBC/100 WBC (Bld) [Ratio] 0 % 0-5 [facility] Work Phone: MCHC Auto (RBC) [Mass/Vol]on 09-13-2021 MCHC (RBC) [Mass/Vol] 32.8 g/dL 32-36 [facility] Work Phone: Platelets bldon 09-13-2021 Platelets (Bld) [#/Vol] 188 10*3/uL 150-450 [facility] Work Phone: Absolute lymphocyte counton 09-06-2021 Lymphocytes Auto (Unsp spec) [#/Vol] 1.86 10*3/uL 0.83-4.51 [facility] Work Phone: Basophil percentageon 2021 Basophils/100 WBC (Bld) 0.7 % 0-1 [facility] Work Phone: Eosinophils/100 WBC (Bld) 0.3 % 0-5 [facility] Work Phone: Neutrophils (Bld) [#/Vol] 4.4 10*3/uL 2.0-7.7 [facility] Work Phone: Neutrophils/100 WBC (Bld) 62.6 % 47-70 [facility] Work Phone: WBC (Bld) [#/Vol] 7.0 10*3/uL 4.4-11.0 [facility] Work Phone: [phone] Blood erythrocytes count (nu mber/volume)on 09-06-2021 RBC (Bld) [#/Vol] 4.51 10*6/uL 4.6-6.2 [facility]: Blood hemoglobin measurement (mass/volume)on 09-06-2021 Hemoglobin (Bld) [Mass/Vol] 13.8 g/dL 13.0-16.5 [facility] Work Phone: Blood lymphocytes/100 leukoc yteson 09-06-2021 Lymphocytes/100 WBC (Bld) 26.5 % 19-41 [facility] Work Phone: Blood monocytes/100 leukocyt eson 09-06-2021 Monocytes/100 WBC (Bld) 9.5 % 0-10 [facility] Work Phone: Blood platelet mean volumeon 09-06-2021 Platelet mean volume (Bld) [Entitic vol] 10.7 fL 6.2-12.0 [facility] Work Phone: Determination of erythrocyte mean corpuscular volume (MCV)on 09-06-2021 MCV (RBC) [Entitic vol] 92.9 fL 80-94 [facility] Work Phone: Hematocrit Auto (Bld) [Volum e fraction]on 09-06-2021 Hematocrit (Bld) [Volume fraction] 41.9 % 40-54 [facility] Work Phone: Laboratory - Hematology and Cell countson 09-06-2021 Erythrocyte distribution width (RBC) [Entitic vol] 43.0 fL 35.1-43.9 [facility] Work Phone: Erythrocyte distribution width (RBC) [Ratio] 12.7 % 11.6-14.6 [facility] Work Phone: Immature granulocytes/100 WBC (Bld) 0.400 % 0.0-0.9 [facility] Work Phone: Comment on above: IG% - Immature Granu locytes (promyelocytes, myelocytes and metamyelocytes) > 1% indicates that a LEFT SHIFT is Present. MCH (RBC) [Entitic mass] 30.6 pg 27.0-32.0 [facility] Work Phone: Nucleated RBC/100 WBC (Bld) [Ratio] 0 % 0-5 [facility] Work Phone: MCHC Auto (RBC) [Mass/Vol]on 09-06-2021 MCHC (RBC) [Mass/Vol] 32.9 g/dL 32-36 [facility] Work Phone: [phone] Platelets bldon 09-06-2021 Platelets (Bld) [#/Vol] 189 10*3/uL 150-450 [facility] Work [phone] Absolute lymphocyte counton 08-30-2021 Lymphocytes Auto (Unsp spec) [#/Vol] 1.44 10*3/uL 0.83-4.51 [facility] Work Phone: Basophil percentageon 2021 Basophils/100 WBC (Bld) 0.3 % 0-1 [facility] Work Phone: [phone] Eosinophils/100 WBC (Bld) 0.2 % 0-5 [facility] Work Phone: [phone] Neutrophils (Bld) [#/Vol] 9.6 10*3/uL 2.0-7.7 [facility] Work Phone: [phone] Neutrophils/100 WBC (Bld) 80.4 % 47-70 [facility] Work [phone] WBC (Bld) [#/Vol] 12.0 10*3/uL 4.4-11.0 [facility] Work Phone: [phone] Blood erythrocytes count (nu mber/volume)on 08-30-2021 RBC (Bld) [#/Vol] 4.52 10*6/uL 4.6-6.2 [facility] Work Phone: Blood hemoglobin measurement (mass/volume)on 08-30-2021 Hemoglobin (Bld) [Mass/Vol] 13.9 g/dL 13.0-16.5 [facility] Work Phone: Blood lymphocytes/100 leukoc yteson 08-30-2021 Lymphocytes/100 WBC (Bld) 12.0 % 19-41 [facility] Work Phone: Blood monocytes/100 leukocyt eson 08-30-2021 Monocytes/100 WBC (Bld) 6.7 % 0-10 [facility] Work Phone: Blood platelet mean volumeon 08-30-2021 Platelet mean volume (Bld) [Entitic vol] 11.3 fL 6.2-12.0 [facility] Work Phone: Determination of erythrocyte mean corpuscular volume (MCV)on 08-30-2021 MCV (RBC) [Entitic vol] 92.7 fL 80-94 [facility] Work Phone: Hematocrit Auto (Bld) [Volum e fraction]on 08-30-2021 Hematocrit (Bld) [Volume fraction] 41.9 % 40-54 [facility] Work Phone: Laboratory - Hematology and Cell countson 08-30-2021 Erythrocyte distribution width (RBC) [Entitic vol] 42.6 fL 35.1-43.9 [facility] Work Phone: Erythrocyte distribution width (RBC) [Ratio] 12.6 % 11.6-14.6 [facility] Work Phone: Immature granulocytes/100 WBC (Bld) 0.400 % 0.0-0.9 [facility] Work Phone: Comment on above: IG% - Immature Granu locytes (promyelocytes, myelocytes and metamyelocytes) > 1% indicates that a LEFT SHIFT is Present. MCH (RBC) [Entitic mass] 30.8 pg 27.0-32.0 [facility] Work Phone: Nucleated RBC/100 WBC (Bld) [Ratio] 0 % 0-5 [facility] Work Phone: MCHC Auto (RBC) [Mass/Vol]on 08-30-2021 MCHC (RBC) [Mass/Vol] 33.2 g/dL 32-36 [facility] Work Phone: [phone] Platelets bldon 08-30-2021 Platelets (Bld) [#/Vol] 200 10*3/uL 150-450 [facility] Work Phone: [phone] Absolute lymphocyte counton 08-23-2021 Lymphocytes Auto (Unsp spec) [#/Vol] 1.91 10*3/uL 0.83-4.51 [facility] Work Phone: [phone] Basophil percentageon 2021 Basophils/100 WBC (Bld) 0.4 % 0-1 [facility] Work Phone: [phone] Eosinophils/100 WBC (Bld) 0.3 % 0-5 [facility] Work Phone: [phone] Neutrophils (Bld) [#/Vol] 4.2 10*3/uL 2.0-7.7 [facility] Work Phone: [phone] Neutrophils/100 WBC (Bld) 62.3 % 47-70 [facility] Work Phone: [phone] WBC (Bld) [#/Vol] 6.8 10*3/uL 4.4-11.0 [facility] Work Phone: Blood erythrocytes count (nu mber/volume)on 08-23-2021 RBC (Bld) [#/Vol] 4.46 10*6/uL 4.6-6.2 [facility] Work Phone: Blood hemoglobin measurement (mass/volume)on 08-23-2021 Hemoglobin (Bld) [Mass/Vol] 13.7 g/dL 13.0-16.5 [facility] Work Phone: [phone] Blood lymphocytes/100 leukoc yteson 08-23-2021 Lymphocytes/100 WBC (Bld) 28.3 % 19-41 [facility] Work Phone: [phone] Blood monocytes/100 leukocyt eson 08-23-2021 Monocytes/100 WBC (Bld) 8.1 % 0-10 [facility] Work Phone: Blood platelet mean volumeon 08-23-2021 Platelet mean volume (Bld) [Entitic vol] 10.6 fL 6.2-12.0 [facility] Work Phone: Determination of erythrocyte mean corpuscular volume (MCV)on 08-23-2021 MCV (RBC) [Entitic vol] 93.0 fL 80-94 [facility] Work Phone: Hematocrit Auto (Bld) [Volum e fraction]on 08-23-2021 Hematocrit (Bld) [Volume fraction] 41.5 % 40-54 [facility] Work Phone: Laboratory - Hematology and Cell countson 08-23-2021 Erythrocyte distribution width (RBC) [Entitic vol] 42.4 fL 35.1-43.9 [facility] Work Phone: Erythrocyte distribution width (RBC) [Ratio] 12.5 % 11.6-14.6 [facility] Work Phone: Immature granulocytes/100 WBC (Bld) 0.600 % 0.0-0.9 [facility] Work Phone: Comment on above: IG% - Immature Granu locytes (promyelocytes, myelocytes and metamyelocytes) > 1% indicates that a LEFT SHIFT is Present. MCH (RBC) [Entitic mass] 30.7 pg 27.0-32.0 [facility] Work Phone: Nucleated RBC/100 WBC (Bld) [Ratio] 0 % 0-5 [facility] Work Phone: MCHC Auto (RBC) [Mass/Vol]on 08-23-2021 MCHC (RBC) [Mass/Vol] 33.0 g/dL 32-36 [facility] Work [facility]: Platelets bldon 08-23-2021 Platelets (Bld) [#/Vol] 198 10*3/uL 150-450 [facility] Work Phone: Basophil percentageon 2021 Basophil percentage 0 SEEN /hpf 0-5 [facility] Work Phone: Bilirubin Test strip Ql (U)o n 08-18-2021 Bilirubin Ql (U) Negative Negative [facility] Work Phone: Culture, urineon 08-18-2021 Bacteria identified Cx Nom (U) Culture exhibits no growth. [facility] Work Phone: Ketones Test strip Ql (U)on 08-18-2021 Ketones Ql (U) Negative Negative [facility] Work Phone: Mucus LM Ql (Urine sed)on Mucus Ql (Urine sed) 0 SEEN /hpf [facility] Work Phone: Nitrite Test strip Ql (U)on 08-18-2021 Nitrite Ql (U) Negative Negative [facility] Work Phone: Protein Test strip Ql (U)on 08-18-2021 Protein Ql (U) Negative Negative [facility] Work Phone: Squamous epithelial cells de tection in urine sediment by light microscopyon 08-18-2021 Epithelial cells.squamous LM Ql (Urine sed) 0 SEEN /hpf 0-5 [facility] Work Phone: Urine blood detectionon 07-31 RBC Ql (U) Negative Negative [facility] Work Phone: RBC Ql (U) 0 SEEN /hpf 0-5 [facility] Work Phone: Urine clarityon 08-18-2021 Clarity (U) Clear Clear [facility] Work Phone: Urine color determinationon 08-18-2021 Color (U) Yellow Yellow [facility] Work Phone: Urine glucose detectionon Glucose Ql (U) Normal mg/dl Normal [facility] Work Phone: Urine leukocyte esterase det ection by dipstickon 08-18-2021 Leukocyte esterase Test strip Ql (U) Negative Negative [facility] Work Phone: Urine pHon 08-18-2021 pH (U) 7.0 [pH] 5.0 - 8.0 [facility] Work Phone: Urine sediment bacteria coun t by microscopy (number/high power field)on 08-18-2021 Bacteria LM.HPF (Urine sed) [#/Area] 0 /[HPF] None Seen [facility] Work Phone: Urine specific gravity measu rementon 08-18-2021 Specific gravity (U) [Rel density] 1.010 1.002-1.030 [facility] Work Phone: Urobilinogen Auto test strip Ql (U)on 08-18-2021 Urobilinogen Ql (U) 4 mg/dl Normal [facility] Work Phone: Absolute lymphocyte counton 08-16-2021 Lymphocytes Auto (Unsp spec) [#/Vol] 1.71 10*3/uL 0.83-4.51 [facility] Work Phone: Basophil percentageon 2021 Basophils/100 WBC (Bld) 0.3 % 0-1 [facility] Work Phone: Eosinophils/100 WBC (Bld) 0.2 % 0-5 [facility] Work Phone: Neutrophils (Bld) [#/Vol] 8.6 10*3/uL 2.0-7.7 [facility] Work Phone: Neutrophils/100 WBC (Bld) 76.8 % 47-70 [facility] Work Phone: WBC (Bld) [#/Vol] 11.2 10*3/uL 4.4-11.0 [facility] Work Phone: Blood erythrocytes count (nu mber/volume)on 08-16-2021 RBC (Bld) [#/Vol] 4.42 10*6/uL 4.6-6.2 [facility] Work Phone: Blood hemoglobin measurement (mass/volume)on 08-16-2021 Hemoglobin (Bld) [Mass/Vol] 13.4 g/dL 13.0-16.5 [facility] Work Phone: Blood lymphocytes/100 leukoc yteson 08-16-2021 Lymphocytes/100 WBC (Bld) 15.2 % 19-41 [facility] Work Phone: Blood monocytes/100 leukocyt eson 08-16-2021 Monocytes/100 WBC (Bld) 7.1 % 0-10 [facility] Work Phone: Blood platelet mean volumeon 08-16-2021 Platelet mean volume (Bld) [Entitic vol] 11.0 fL 6.2-12.0 [facility] Work Phone: Determination of erythrocyte mean corpuscular volume (MCV)on 08-16-2021 MCV (RBC) [Entitic vol] 91.9 fL 80-94 [facility] Work Phone: Hematocrit Auto (Bld) [Volum e fraction]on 08-16-2021 Hematocrit (Bld) [Volume fraction] 40.6 % 40-54 [facility] Work Phone: Laboratory - Hematology and Cell countson 08-16-2021 Erythrocyte distribution width (RBC) [Entitic vol] 43.0 fL 35.1-43.9 [facility] Work Phone: Erythrocyte distribution width (RBC) [Ratio] 12.7 % 11.6-14.6 [facility] Work Phone: Immature granulocytes/100 WBC (Bld) 0.400 % 0.0-0.9 [facility] Work Phone: Comment on above: IG% - Immature Granu locytes (promyelocytes, myelocytes and metamyelocytes) > 1% indicates that a LEFT SHIFT is Present. MCH (RBC) [Entitic mass] 30.3 pg 27.0-32.0 [facility] Work Phone: Nucleated RBC/100 WBC (Bld) [Ratio] 0 % 0-5 [facility] Work Phone: MCHC Auto (RBC) [Mass/Vol]on 08-16-2021 MCHC (RBC) [Mass/Vol] 33.0 g/dL 32-36 [facility] Work Phone: Platelets bldon 08-16-2021 Platelets (Bld) [#/Vol] 187 10*3/uL 150-450 [facility] Work Phone: Absolute lymphocyte counton 08-09-2021 Lymphocytes Auto (Unsp spec) [#/Vol] 1.78 10*3/uL 0.83-4.51 [facility] Work Phone: Basophil percentageon 2021 Basophils/100 WBC (Bld) 0.5 % 0-1 [facility] Work Phone: Eosinophils/100 WBC (Bld) 0.1 % 0-5 [facility] Work Phone: Neutrophils (Bld) [#/Vol] 6.0 10*3/uL 2.0-7.7 [facility] Work Phone: Neutrophils/100 WBC (Bld) 71.3 % 47-70 [facility] Work Phone: WBC (Bld) [#/Vol] 8.4 10*3/uL 4.4-11.0 [facility] Work Phone: Blood erythrocytes count (nu mber/volume)on 08-09-2021 RBC (Bld) [#/Vol] 4.37 10*6/uL 4.6-6.2 [facility] Work Phone: Blood hemoglobin measurement (mass/volume)on 08-09-2021 Hemoglobin (Bld) [Mass/Vol] 13.5 g/dL 13.0-16.5 [facility] Work Phone: Blood lymphocytes/100 leukoc yteson 08-09-2021 Lymphocytes/100 WBC (Bld) 21.2 % 19-41 [facility] Work Phone: Blood monocytes/100 leukocyt eson 08-09-2021 Monocytes/100 WBC (Bld) 6.5 % 0-10 [facility] Work Phone: Blood platelet mean volumeon 08-09-2021 Platelet mean volume (Bld) [Entitic vol] 11.1 fL 6.2-12.0 [facility] Work Phone: Determination of erythrocyte mean corpuscular volume (MCV)on 08-09-2021 MCV (RBC) [Entitic vol] 91.3 fL 80-94 [facility] Work Phone: Hematocrit Auto (Bld) [Volum e fraction]on 08-09-2021 Hematocrit (Bld) [Volume fraction] 39.9 % 40-54 [facility] Work Phone: Laboratory - Hematology and Cell countson 08-09-2021 Erythrocyte distribution width (RBC) [Entitic vol] 41.4 fL 35.1-43.9 [facility] Work Phone: Erythrocyte distribution width (RBC) [Ratio] 12.5 % 11.6-14.6 [facility] Work Phone: Immature granulocytes/100 WBC (Bld) 0.400 % 0.0-0.9 [facility] Work Phone: Comment on above: IG% - Immature Granu locytes (promyelocytes, myelocytes and metamyelocytes) > 1% indicates that a LEFT SHIFT is Present. MCH (RBC) [Entitic mass] 30.9 pg 27.0-32.0 [facility] Work Phone: Nucleated RBC/100 WBC (Bld) [Ratio] 0 % 0-5 [facility] Work Phone: MCHC Auto (RBC) [Mass/Vol]on 08-09-2021 MCHC (RBC) [Mass/Vol] 33.8 g/dL 32-36 [facility] Work Phone: Platelets bldon 08-09-2021 Platelets (Bld) [#/Vol] 177 10*3/uL 150-450 [facility] Work Phone: Absolute lymphocyte counton 08-02-2021 Lymphocytes Auto (Unsp spec) [#/Vol] 1.69 10*3/uL 0.83-4.51 [facility] Work Phone: Basophil percentageon 2021 Basophils/100 WBC (Bld) 0.3 % 0-1 [facility] Work Phone: [phone] Eosinophils/100 WBC (Bld) 0.3 % 0-5 [facility] Work Phone: [phone] Neutrophils (Bld) [#/Vol] 3.8 10*3/uL 2.0-7.7 [facility] Work Phone: Neutrophils/100 WBC (Bld) 61.9 % 47-70 [facility] Work Phone: WBC (Bld) [#/Vol] 6.1 10*3/uL 4.4-11.0 [facility] Work Phone: Blood erythrocytes count (nu mber/volume)on 08-02-2021 RBC (Bld) [#/Vol] 4.54 10*6/uL 4.6-6.2 [facility] Work [facility]: Blood hemoglobin measurement (mass/volume)on 08-02-2021 Hemoglobin (Bld) [Mass/Vol] 13.8 g/dL 13.0-16.5 [facility] Work Phone: Blood lymphocytes/100 leukoc yteson 08-02-2021 Lymphocytes/100 WBC (Bld) 27.7 % 19-41 [facility] Work Phone: [phone] Blood monocytes/100 leukocyt eson 08-02-2021 Monocytes/100 WBC (Bld) 9.5 % 0-10 [facility] Work Phone: Blood platelet mean volumeon 08-02-2021 Platelet mean volume (Bld) [Entitic vol] 11.2 fL 6.2-12.0 [facility] Work Phone: Determination of erythrocyte mean corpuscular volume (MCV)on 08-02-2021 MCV (RBC) [Entitic vol] 90.1 fL 80-94 [facility] Work Phone: Hematocrit Auto (Bld) [Volum e fraction]on 08-02-2021 Hematocrit (Bld) [Volume fraction] 40.9 % 40-54 [facility] Work Phone: Laboratory - Hematology and Cell countson 08-02-2021 Erythrocyte distribution width (RBC) [Entitic vol] 40.3 fL 35.1-43.9 [facility] Work Phone: Erythrocyte distribution width (RBC) [Ratio] 12.4 % 11.6-14.6 [facility] Work Phone: Immature granulocytes/100 WBC (Bld) 0.300 % 0.0-0.9 [facility] Work Phone: Comment on above: IG% - Immature Granu locytes (promyelocytes, myelocytes and metamyelocytes) > 1% indicates that a LEFT SHIFT is Present. MCH (RBC) [Entitic mass] 30.4 pg 27.0-32.0 [facility] Work Phone: Nucleated RBC/100 WBC (Bld) [Ratio] 0 % 0-5 [facility] Work Phone: MCHC Auto (RBC) [Mass/Vol]on 08-02-2021 MCHC (RBC) [Mass/Vol] 33.7 g/dL 32-36 [facility] Work Phone: Platelets bldon 08-02-2021 Platelets (Bld) [#/Vol] 192 10*3/uL 150-450 [facility] Work Phone: Absolute lymphocyte counton 07-26-2021 Lymphocytes Auto (Unsp spec) [#/Vol] 1.83 10*3/uL 0.83-4.51 [facility] Work Phone: Basophil percentageon 2021 Basophils/100 WBC (Bld) 0.5 % 0-1 [facility] Work Phone: Eosinophils/100 WBC (Bld) 0.3 % 0-5 [facility] Work Phone: [phone] Neutrophils (Bld) [#/Vol] 3.3 10*3/uL 2.0-7.7 [facility] Work Phone: Neutrophils/100 WBC (Bld) 58.1 % 47-70 [facility] Work Phone: WBC (Bld) [#/Vol] 5.7 10*3/uL 4.4-11.0 [facility] Work Phone: Blood erythrocytes count (nu mber/volume)on 07-26-2021 RBC (Bld) [#/Vol] 4.21 10*6/uL 4.6-6.2 [facility] Work Phone: Blood hemoglobin measurement (mass/volume)on 07-26-2021 Hemoglobin (Bld) [Mass/Vol] 12.9 g/dL 13.0-16.5 [facility] Work Phone: Blood lymphocytes/100 leukoc yteson 07-26-2021 Lymphocytes/100 WBC (Bld) 31.9 % 19-41 [facility] Work Phone: Blood monocytes/100 leukocyt eson 07-26-2021 Monocytes/100 WBC (Bld) 8.9 % 0-10 [facility] Work Phone: Blood platelet mean volumeon 07-26-2021 Platelet mean volume (Bld) [Entitic vol] 11.5 fL 6.2-12.0 [facility] Work Phone: Determination of erythrocyte mean corpuscular volume (MCV)on 07-26-2021 MCV (RBC) [Entitic vol] 90.7 fL 80-94 [facility] Work Phone: Hematocrit Auto (Bld) [Volum e fraction]on 07-26-2021 Hematocrit (Bld) [Volume fraction] 38.2 % 40-54 [facility] Work Phone: Laboratory - Hematology and Cell countson 07-26-2021 Erythrocyte distribution width (RBC) [Entitic vol] 41.2 fL 35.1-43.9 [facility] Work Phone: Erythrocyte distribution width (RBC) [Ratio] 12.5 % 11.6-14.6 [facility] Work Phone: Immature granulocytes/100 WBC (Bld) 0.300 % 0.0-0.9 [facility] Work Phone: Comment on above: IG% - Immature Granu locytes (promyelocytes, myelocytes and metamyelocytes) > 1% indicates that a LEFT SHIFT is Present. MCH (RBC) [Entitic mass] 30.6 pg 27.0-32.0 [facility] Work Phone: Nucleated RBC/100 WBC (Bld) [Ratio] 0 % 0-5 [facility] Work Phone: MCHC Auto (RBC) [Mass/Vol]on 07-26-2021 MCHC (RBC) [Mass/Vol] 33.8 g/dL 32-36 [facility] Work Phone: Platelets bldon 07-26-2021 Platelets (Bld) [#/Vol] 180 10*3/uL 150-450 [facility] Work Phone: Absolute lymphocyte counton 07-19-2021 Lymphocytes Auto (Unsp spec) [#/Vol] 2.04 10*3/uL 0.83-4.51 [facility] Work Phone: Basophil percentageon 2021 Basophils/100 WBC (Bld) 0.3 % 0-1 [facility] Work Phone: Eosinophils/100 WBC (Bld) 0.4 % 0-5 [facility] Work Phone: Neutrophils (Bld) [#/Vol] 4.0 10*3/uL 2.0-7.7 [facility] Work Phone: Neutrophils/100 WBC (Bld) 59.2 % 47-70 [facility] Work Phone: WBC (Bld) [#/Vol] 6.7 10*3/uL 4.4-11.0 [facility] Work Phone: Blood erythrocytes count (nu mber/volume)on 07-19-2021 RBC (Bld) [#/Vol] 4.53 10*6/uL 4.6-6.2 [facility] Work Phone: Blood hemoglobin measurement (mass/volume)on 07-19-2021 Hemoglobin (Bld) [Mass/Vol] 14.1 g/dL 13.0-16.5 [facility] Work Phone: Blood lymphocytes/100 leukoc yteson 07-19-2021 Lymphocytes/100 WBC (Bld) 30.5 % 19-41 [facility] Work Phone: Blood monocytes/100 leukocyt eson 07-19-2021 Monocytes/100 WBC (Bld) 9.0 % 0-10 [facility] Work Phone: Blood platelet mean volumeon 07-19-2021 Platelet mean volume (Bld) [Entitic vol] 11.4 fL 6.2-12.0 [facility] Work Phone: Determination of erythrocyte mean corpuscular volume (MCV)on 07-19-2021 MCV (RBC) [Entitic vol] 90.5 fL 80-94 [facility] Work Phone: Hematocrit Auto (Bld) [Volum e fraction]on 07-19-2021 Hematocrit (Bld) [Volume fraction] 41.0 % 40-54 [facility] Work Phone: Laboratory - Hematology and Cell countson 07-19-2021 Erythrocyte distribution width (RBC) [Entitic vol] 41.1 fL 35.1-43.9 [facility] Work Phone: [phone] Erythrocyte distribution width (RBC) [Ratio] 12.5 % 11.6-14.6 [facility] Work Phone: [phone] Immature granulocytes/100 WBC (Bld) 0.600 % 0.0-0.9 [facility] Work Phone: Comment on above: IG% - Immature Granu locytes (promyelocytes, myelocytes and metamyelocytes) > 1% indicates that a LEFT SHIFT is Present. MCH (RBC) [Entitic mass] 31.1 pg 27.0-32.0 [facility] Work Phone: [phone] Nucleated RBC/100 WBC (Bld) [Ratio] 0 % 0-5 [facility] Work Phone: MCHC Auto (RBC) [Mass/Vol]on 07-19-2021 MCHC (RBC) [Mass/Vol] 34.4 g/dL 32-36 [facility] Work Phone: Platelets bldon 07-19-2021 Platelets (Bld) [#/Vol] 193 10*3/uL 150-450 [facility] Work Phone: Absolute lymphocyte counton 07-12-2021 Lymphocytes Auto (Unsp spec) [#/Vol] 1.42 10*3/uL 0.83-4.51 [facility] Work Phone: Basophil percentageon 2021 Basophils/100 WBC (Bld) 0.6 % 0-1 [facility] Work Phone: Eosinophils/100 WBC (Bld) 0.3 % 0-5 [facility] Work Phone: Neutrophils (Bld) [#/Vol] 4.7 10*3/uL 2.0-7.7 [facility] Work Phone: Neutrophils/100 WBC (Bld) 67.3 % 47-70 [facility] Work Phone: WBC (Bld) [#/Vol] 7.0 10*3/uL 4.4-11.0 [facility] Blood erythrocytes count (nu mber/volume)on 07-12-2021 RBC (Bld) [#/Vol] 4.61 10*6/uL 4.6-6.2 [facility] Work Phone: Blood hemoglobin measurement (mass/volume)on 07-12-2021 Hemoglobin (Bld) [Mass/Vol] 14.4 g/dL 13.0-16.5 [facility] Work Phone: Blood lymphocytes/100 leukoc yteson 07-12-2021 Lymphocytes/100 WBC (Bld) 20.4 % 19-41 [facility] Work Phone: Blood monocytes/100 leukocyt eson 07-12-2021 Monocytes/100 WBC (Bld) 11.1 % 0-10 [facility] Work Phone: Blood platelet mean volumeon 07-12-2021 Platelet mean volume (Bld) [Entitic vol] 11.2 fL 6.2-12.0 [facility] Work Phone: Determination of erythrocyte mean corpuscular volume (MCV)on 07-12-2021 MCV (RBC) [Entitic vol] 91.1 fL 80-94 [facility] Work Phone: Hematocrit Auto (Bld) [Volum e fraction]on 07-12-2021 Hematocrit (Bld) [Volume fraction] 42.0 % 40-54 [facility] Work Phone: Laboratory - Hematology and Cell countson 07-12-2021 Erythrocyte distribution width (RBC) [Entitic vol] 41.4 fL 35.1-43.9 [facility] Work Phone: Erythrocyte distribution width (RBC) [Ratio] 12.6 % 11.6-14.6 [facility] Work Phone: Immature granulocytes/100 WBC (Bld) 0.300 % 0.0-0.9 [facility] Work Phone: Comment on above: IG% - Immature Granu locytes (promyelocytes, myelocytes and metamyelocytes) > 1% indicates that a LEFT SHIFT is Present. MCH (RBC) [Entitic mass] 31.2 pg 27.0-32.0 [facility] Work Phone: Nucleated RBC/100 WBC (Bld) [Ratio] 0 % 0-5 [facility] Work Phone: [phone] MCHC Auto (RBC) [Mass/Vol]on 07-12-2021 MCHC (RBC) [Mass/Vol] 34.3 g/dL 32-36 [facility] Work Phone: Platelets bldon 07-12-2021 Platelets (Bld) [#/Vol] 184 10*3/uL 150-450 [facility] Work Phone: Absolute lymphocyte counton 07-05-2021 Lymphocytes Auto (Unsp spec) [#/Vol] 1.55 10*3/uL 0.83-4.51 [facility] Work Phone: Basophil percentageon 2021 Basophils/100 WBC (Bld) 0.4 % 0-1 [facility] Work Phone: Cholesterol [Mass/Vol] 148 mg/dL <200 [facility] Work Phone: Comment on above: <200 mg/dL Desirable 200-240 mg/dL Borderline >240 mg/dL High Risk Eosinophils/100 WBC (Bld) 0.3 % 0-5 [facility] Work Phone: [phone] Neutrophils (Bld) [#/Vol] 5.5 10*3/uL 2.0-7.7 [facility] Work Phone: [phone] Neutrophils/100 WBC (Bld) 70.9 % 47-70 [facility] Work Phone: Triglyceride [Mass/Vol] 201 mg/dL <199 [facility] Work Phone: Comment on above: The drugs N-Acetylcy steine and Metamizole may falsely depress this assay.Serum Triglycerides Reference Interval Normal <150 mg/dL Borderline high 150 - 199 mg/dL High 200 - 499 mg/dL Very High > or = 500 mg/dL WBC (Bld) [#/Vol] 7.8 10*3/uL 4.4-11.0 [facility] Work Phone: Blood erythrocytes count (nu mber/volume)on 07-05-2021 RBC (Bld) [#/Vol] 4.46 10*6/uL 4.6-6.2 [facility] Work Phone: Blood hemoglobin measurement (mass/volume)on 07-05-2021 Hemoglobin (Bld) [Mass/Vol] 13.4 g/dL 13.0-16.5 [facility] Work Phone: Blood lymphocytes/100 leukoc yteson 07-05-2021 Lymphocytes/100 WBC (Bld) 20.0 % 19-41 [facility] Work Phone: Blood monocytes/100 leukocyt eson 07-05-2021 Monocytes/100 WBC (Bld) 8.1 % 0-10 [facility] Work Phone: Blood platelet mean volumeon 07-05-2021 Platelet mean volume (Bld) [Entitic vol] 11.7 fL 6.2-12.0 [facility] Work Phone: Determination of erythrocyte mean corpuscular volume (MCV)on 07-05-2021 MCV (RBC) [Entitic vol] 91.0 fL 80-94 [facility] Work Phone: Hematocrit Auto (Bld) [Volum e fraction]on 07-05-2021 Hematocrit (Bld) [Volume fraction] 40.6 % 40-54 [facility] Work Phone: Laboratory - Hematology and Cell countson 07-05-2021 Erythrocyte distribution width (RBC) [Entitic vol] 41.9 fL 35.1-43.9 [facility] Work Phone: Erythrocyte distribution width (RBC) [Ratio] 12.8 % 11.6-14.6 [facility] Work Phone: Immature granulocytes/100 WBC (Bld) 0.300 % 0.0-0.9 [facility] Work Phone: Comment on above: IG% - Immature Granu locytes (promyelocytes, myelocytes and metamyelocytes) > 1% indicates that a LEFT SHIFT is Present. MCH (RBC) [Entitic mass] 30.0 pg 27.0-32.0 [facility] Work Phone: Nucleated RBC/100 WBC (Bld) [Ratio] 0 % 0-5 [facility] Work Phone: MCHC Auto (RBC) [Mass/Vol]on 07-05-2021 MCHC (RBC) [Mass/Vol] 33.0 g/dL 32-36 [facility] Work Phone: Platelets bldon 07-05-2021 Platelets (Bld) [#/Vol] 186 10*3/uL 150-450 [facility] Work Phone: Serum or plasma cholesterol in HDL measurement (mass/volume)on 07-05-2021 Cholesterol in HDL [Mass/Vol] 30 mg/dL >40 [facility] Work Phone: Comment on above: The drugs N-Acetylcy steine and Metamizole may falsely depress this assay. Reference Range HDL <40 mg/dL Low HDL Cholesterol HDL >or= 60 mg/dL High HDL Cholesterol Serum or plasma cholesterol in VLDL measurement (mass/volume)on 07-05-2021 Cholesterol in VLDL [Mass/Vol] 40 mg/dL 5-40 [facility] Work Phone: Serum or plasma low density lipoprotein (LDL) cholesterol measurement (mass/volume)on 07-05-2021 Cholesterol in LDL [Mass/Vol] 78 mg/dL 0-130 [facility] Work Phone: Absolute lymphocyte counton 06-28-2021 Lymphocytes Auto (Unsp spec) [#/Vol] 2.01 10*3/uL 0.83-4.51 [facility] Work Phone: Basophil percentageon 2021 Basophils/100 WBC (Bld) 0.5 % 0-1 [facility] Work Phone: Eosinophils/100 WBC (Bld) 0.3 % 0-5 [facility] Work Phone: Neutrophils (Bld) [#/Vol] 3.3 10*3/uL 2.0-7.7 [facility] Work Phone: [phone] Neutrophils/100 WBC (Bld) 55.5 % 47-70 [facility] Work Phone: WBC (Bld) [#/Vol] 6.0 10*3/uL 4.4-11.0 [facility] Work Phone: Blood erythrocytes count (nu mber/volume)on 06-28-2021 RBC (Bld) [#/Vol] 4.32 10*6/uL 4.6-6.2 [facility] Work [facility]: Blood hemoglobin measurement (mass/volume)on 06-28-2021 Hemoglobin (Bld) [Mass/Vol] 13.5 g/dL 13.0-16.5 [facility] Work Phone: Blood lymphocytes/100 leukoc yteson 06-28-2021 Lymphocytes/100 WBC (Bld) 33.5 % 19-41 [facility] Work Phone: Blood monocytes/100 leukocyt eson 06-28-2021 Monocytes/100 WBC (Bld) 10.0 % 0-10 [facility] Work Phone: Blood platelet mean volumeon 06-28-2021 Platelet mean volume (Bld) [Entitic vol] 11.8 fL 6.2-12.0 [facility] Work Phone: Determination of erythrocyte mean corpuscular volume (MCV)on 06-28-2021 MCV (RBC) [Entitic vol] 89.8 fL 80-94 [facility] Work Phone: Hematocrit Auto (Bld) [Volum e fraction]on 06-28-2021 Hematocrit (Bld) [Volume fraction] 38.8 % 40-54 [facility] Work Phone: Laboratory - Hematology and Cell countson 06-28-2021 Erythrocyte distribution width (RBC) [Entitic vol] 40.6 fL 35.1-43.9 [facility] Work Phone: Erythrocyte distribution width (RBC) [Ratio] 12.5 % 11.6-14.6 [facility] Work Phone: Immature granulocytes/100 WBC (Bld) 0.200 % 0.0-0.9 [facility] Work Phone: Comment on above: IG% - Immature Granu locytes (promyelocytes, myelocytes and metamyelocytes) > 1% indicates that a LEFT SHIFT is Present. MCH (RBC) [Entitic mass] 31.3 pg 27.0-32.0 [facility] Work Phone: Nucleated RBC/100 WBC (Bld) [Ratio] 0 % 0-5 [facility] Work Phone: MCHC Auto (RBC) [Mass/Vol]on 06-28-2021 MCHC (RBC) [Mass/Vol] 34.8 g/dL 32-36 [facility] Work [facility]: Platelets bldon 06-28-2021 Platelets (Bld) [#/Vol] 185 10*3/uL 150-450 [facility] Work Phone: Absolute lymphocyte counton 06-21-2021 Lymphocytes Auto (Unsp spec) [#/Vol] 1.78 10*3/uL 0.83-4.51 [facility] Work Phone: Basophil percentageon 2021 Basophils/100 WBC (Bld) 0.3 % 0-1 [facility] Work Phone: Eosinophils/100 WBC (Bld) 0.4 % 0-5 [facility] Work Phone: Neutrophils (Bld) [#/Vol] 4.2 10*3/uL 2.0-7.7 [facility] Work Phone: Neutrophils/100 WBC (Bld) 62.7 % 47-70 [facility] Work Phone: WBC (Bld) [#/Vol] 6.8 10*3/uL 4.4-11.0 [facility] Work Phone: Blood erythrocytes count (nu mber/volume)on 06-21-2021 RBC (Bld) [#/Vol] 4.21 10*6/uL 4.6-6.2 [facility] Work [facility]: Blood hemoglobin measurement (mass/volume)on 06-21-2021 Hemoglobin (Bld) [Mass/Vol] 13.3 g/dL 13.0-16.5 [facility] Work Phone: [phone] Blood lymphocytes/100 leukoc yteson 06-21-2021 Lymphocytes/100 WBC (Bld) 26.3 % 19-41 [facility] Work Phone: Blood monocytes/100 leukocyt eson 06-21-2021 Monocytes/100 WBC (Bld) 9.9 % 0-10 [facility] Work Phone: Blood platelet mean volumeon 06-21-2021 Platelet mean volume (Bld) [Entitic vol] 11.5 fL 6.2-12.0 [facility] Work Phone: Determination of erythrocyte mean corpuscular volume (MCV)on 06-21-2021 MCV (RBC) [Entitic vol] 91.0 fL 80-94 [facility] Work Phone: Hematocrit Auto (Bld) [Volum e fraction]on 06-21-2021 Hematocrit (Bld) [Volume fraction] 38.3 % 40-54 [facility] Work Phone: Laboratory - Hematology and Cell countson 06-21-2021 Erythrocyte distribution width (RBC) [Entitic vol] 40.2 fL 35.1-43.9 [facility] Work Phone: [phone] Erythrocyte distribution width (RBC) [Ratio] 12.2 % 11.6-14.6 [facility] Work Phone: [phone] Immature granulocytes/100 WBC (Bld) 0.400 % 0.0-0.9 [facility] Work Phone: Comment on above: IG% - Immature Granu locytes (promyelocytes, myelocytes and metamyelocytes) > 1% indicates that a LEFT SHIFT is Present. MCH (RBC) [Entitic mass] 31.6 pg 27.0-32.0 [facility] Work Phone: Nucleated RBC/100 WBC (Bld) [Ratio] 0 % 0-5 [facility] Work Phone: MCHC Auto (RBC) [Mass/Vol]on 06-21-2021 MCHC (RBC) [Mass/Vol] 34.7 g/dL 32-36 [facility] Work Phone: [phone] Platelets bldon 06-21-2021 Platelets (Bld) [#/Vol] 217 10*3/uL 150-450 [facility] Work Phone: Absolute lymphocyte counton 06-14-2021 Lymphocytes Auto (Unsp spec) [#/Vol] 1.41 10*3/uL 0.83-4.51 [facility] Work Phone: [phone] Basophil percentageon 2021 Basophils/100 WBC (Bld) 0.4 % 0-1 [facility] Work Phone: [phone] Chloride [Moles/Vol] 106 mmol/L 98-107 [facility] Work Phone: [phone] Eosinophils/100 WBC (Bld) 0.6 % 0-5 [facility] Work Phone: Glucose [Mass/Vol] 121 mg/dL 74-106 [facility] Work Phone: Comment on above: Fasting Glucose resu lt from 100 to 125 mg/dL suggests IMPAIRED HOMEOSTASIS per A.D.A. criteria. Neutrophils (Bld) [#/Vol] 4.8 10*3/uL 2.0-7.7 [facility] Work Phone: Neutrophils/100 WBC (Bld) 69.9 % 47-70 [facility] Work Phone: Potassium [Moles/Vol] 3.7 mmol/L 3.5-5.1 [facility] Work Phone: Sodium [Moles/Vol] 140 mmol/L 136-145 [facility] Work Phone: WBC (Bld) [#/Vol] 6.8 10*3/uL 4.4-11.0 [facility] Work Phone: Blood erythrocytes count (nu mber/volume)on 06-14-2021 RBC (Bld) [#/Vol] 4.78 10*6/uL 4.6-6.2 [facility] Work Phone: Blood hemoglobin measurement (mass/volume)on 06-14-2021 Hemoglobin (Bld) [Mass/Vol] 14.9 g/dL 13.0-16.5 [facility] Work Phone: [phone] Blood lymphocytes/100 leukoc yteson 06-14-2021 Lymphocytes/100 WBC (Bld) 20.8 % 19-41 [facility] Work Phone: Blood monocytes/100 leukocyt eson 06-14-2021 Monocytes/100 WBC (Bld) 7.7 % 0-10 [facility] Work Phone: Blood platelet mean volumeon 06-14-2021 Platelet mean volume (Bld) [Entitic vol] 11.5 fL 6.2-12.0 [facility] Work Phone: [phone] Determination of erythrocyte mean corpuscular volume (MCV)on 06-14-2021 MCV (RBC) [Entitic vol] 89.5 fL 80-94 [facility] Work Phone: Hematocrit Auto (Bld) [Volum e fraction]on 06-14-2021 Hematocrit (Bld) [Volume fraction] 42.8 % 40-54 [facility] Work Phone: Laboratory - Chemistry and C hemistry - challengeon 06-14-2021 CO2 [Moles/Vol] 27.0 mmol/L 21.0-32.0 [facility] Work Phone: Urea nitrogen/Creatinine [Mass ratio] 35.0 mg/mg 10-20 [facility] Work Phone: Laboratory - Hematology and Cell countson 06-14-2021 Erythrocyte distribution width (RBC) [Entitic vol] 39.3 fL 35.1-43.9 [facility] Work Phone: Erythrocyte distribution width (RBC) [Ratio] 12.0 % 11.6-14.6 [facility] Work Phone: Immature granulocytes/100 WBC (Bld) 0.600 % 0.0-0.9 [facility] Work Phone: Comment on above: IG% - Immature Granu locytes (promyelocytes, myelocytes and metamyelocytes) > 1% indicates that a LEFT SHIFT is Present. MCH (RBC) [Entitic mass] 31.2 pg 27.0-32.0 [facility] Work Phone: Nucleated RBC/100 WBC (Bld) [Ratio] 0 % 0-5 [facility] Work Phone: MCHC Auto (RBC) [Mass/Vol]on 06-14-2021 MCHC (RBC) [Mass/Vol] 34.8 g/dL 32-36 [facility] Work Phone: No Panel Informationon 06-14 Estimated GFR (MDRD) Amer 185 mL/min >60 [facility] Work Phone: Comment on above: GFR Calc Estimated GFR (MDRD) Non-Af Amer 153 mL/min >60 [facility] Work Phone: Comment on above: Non- GFR Calc Platelets bldon 06-14-2021 Platelets (Bld) [#/Vol] 223 10*3/uL 150-450 [facility] Work Phone: Serum or plasma calcium gordy urement (mass/volume)on 06-14-2021 Calcium [Mass/Vol] 8.0 mg/dL 8.5-10.1 [facility] Work Phone: Serum or plasma creatinine m easurement (mass/volume)on 06-14-2021 Creatinine [Mass/Vol] 0.57 mg/dL 0.70-1.30 [facility] Work Phone: Comment on above: The validity of the calculated GFR & GFRAA in patients over 70 years has not been determined. Clinical correlation is essential. Serum or plasma urea nitroge n measurement (mass/volume)on 06-14-2021 Urea nitrogen [Mass/Vol] 20 mg/dL 7-18 [facility] Work Phone: Thin prep Papanicolaou smear with manual screeningon 06-14-2021 Thin prep Papanicolaou smear with manual screening 7 5-15 [facility] Work Phone: Absolute lymphocyte counton 06-07-2021 Lymphocytes Auto (Unsp spec) [#/Vol] 1.38 10*3/uL 0.83-4.51 [facility] Work Phone: Basophil percentageon 2021 Basophils/100 WBC (Bld) 0.2 % 0-1 [facility] Work Phone: Eosinophils/100 WBC (Bld) 0.0 % 0-5 [facility] Work Phone: Neutrophils (Bld) [#/Vol] 7.3 10*3/uL 2.0-7.7 [facility] Work Phone: Neutrophils/100 WBC (Bld) 75.3 % 47-70 [facility] Work Phone: WBC (Bld) [#/Vol] 9.7 10*3/uL 4.4-11.0 [facility] Work Phone: Blood erythrocytes count (nu mber/volume)on 06-07-2021 RBC (Bld) [#/Vol] 4.48 10*6/uL 4.6-6.2 [facility] Work Phone: Blood hemoglobin measurement (mass/volume)on 06-07-2021 Hemoglobin (Bld) [Mass/Vol] 13.8 g/dL 13.0-16.5 [facility] Work Phone: Blood lymphocytes/100 leukoc yteson 06-07-2021 Lymphocytes/100 WBC (Bld) 14.2 % 19-41 [facility] Work Phone: Blood monocytes/100 leukocyt eson 06-07-2021 Monocytes/100 WBC (Bld) 10.2 % 0-10 [facility] Work Phone: Blood platelet mean volumeon 06-07-2021 Platelet mean volume (Bld) [Entitic vol] 11.9 fL 6.2-12.0 [facility] Work Phone: Determination of erythrocyte mean corpuscular volume (MCV)on 06-07-2021 MCV (RBC) [Entitic vol] 92.9 fL 80-94 [facility] Work Phone: Hematocrit Auto (Bld) [Volum e fraction]on 06-07-2021 Hematocrit (Bld) [Volume fraction] 41.6 % 40-54 [facility] Work Phone: Laboratory - Hematology and Cell countson 06-07-2021 Erythrocyte distribution width (RBC) [Entitic vol] 43.8 fL 35.1-43.9 [facility] Work Phone: Erythrocyte distribution width (RBC) [Ratio] 12.8 % 11.6-14.6 [facility] Work Phone: [phone] Immature granulocytes/100 WBC (Bld) 0.100 % 0.0-0.9 [facility] Work Phone: Comment on above: IG% - Immature Granu locytes (promyelocytes, myelocytes and metamyelocytes) > 1% indicates that a LEFT SHIFT is Present. MCH (RBC) [Entitic mass] 30.8 pg 27.0-32.0 [facility] Work Phone: [phone] Nucleated RBC/100 WBC (Bld) [Ratio] 0 % 0-5 [facility] Work Phone: [phone] MCHC Auto (RBC) [Mass/Vol]on 06-07-2021 MCHC (RBC) [Mass/Vol] 33.2 g/dL 32-36 [facility] Work Phone: [phone] Platelets bldon 06-07-2021 Platelets (Bld) [#/Vol] 152 10*3/uL 150-450 [facility] Work Phone: [phone] Absolute lymphocyte counton 05-31-2021 Lymphocytes Auto (Unsp spec) [#/Vol] 1.72 10*3/uL 0.83-4.51 [facility] Work Phone: Basophil percentageon 2021 Basophils/100 WBC (Bld) 0.7 % 0-1 [facility] Work Phone: Eosinophils/100 WBC (Bld) 1.1 % 0-5 [facility] Work Phone: Neutrophils (Bld) [#/Vol] 3.3 10*3/uL 2.0-7.7 [facility] Work Phone: Neutrophils/100 WBC (Bld) 58.5 % 47-70 [facility] Work Phone: WBC (Bld) [#/Vol] 5.6 10*3/uL 4.4-11.0 [facility] Work Phone: [phone] Blood erythrocytes count (nu mber/volume)on 05-31-2021 RBC (Bld) [#/Vol] 4.44 10*6/uL 4.6-6.2 [facility] Work Phone: Blood hemoglobin measurement (mass/volume)on 05-31-2021 Hemoglobin (Bld) [Mass/Vol] 13.6 g/dL 13.0-16.5 [facility] Work Phone: Blood lymphocytes/100 leukoc yteson 05-31-2021 Lymphocytes/100 WBC (Bld) 30.7 % 19-41 [facility] Work Phone: Blood monocytes/100 leukocyt eson 05-31-2021 Monocytes/100 WBC (Bld) 8.6 % 0-10 [facility] Work Phone: Blood platelet mean volumeon 05-31-2021 Platelet mean volume (Bld) [Entitic vol] 11.2 fL 6.2-12.0 [facility] Work Phone: Determination of erythrocyte mean corpuscular volume (MCV)on 05-31-2021 MCV (RBC) [Entitic vol] 92.1 fL 80-94 [facility] Work Phone: Hematocrit Auto (Bld) [Volum e fraction]on 05-31-2021 Hematocrit (Bld) [Volume fraction] 40.9 % 40-54 [facility] Work Phone: Laboratory - Hematology and Cell countson 05-31-2021 Erythrocyte distribution width (RBC) [Entitic vol] 42.2 fL 35.1-43.9 [facility] Work Phone: Erythrocyte distribution width (RBC) [Ratio] 12.4 % 11.6-14.6 [facility] Work Phone: Immature granulocytes/100 WBC (Bld) 0.400 % 0.0-0.9 [facility] Work Phone: Comment on above: IG% - Immature Granu locytes (promyelocytes, myelocytes and metamyelocytes) > 1% indicates that a LEFT SHIFT is Present. MCH (RBC) [Entitic mass] 30.6 pg 27.0-32.0 [facility] Work Phone: [phone] Nucleated RBC/100 WBC (Bld) [Ratio] 0 % 0-5 [facility] Work Phone: MCHC Auto (RBC) [Mass/Vol]on 05-31-2021 MCHC (RBC) [Mass/Vol] 33.3 g/dL 32-36 [facility] Work Phone: Platelets bldon 05-31-2021 Platelets (Bld) [#/Vol] 189 10*3/uL 150-450 [facility] Work Phone: [phone] Absolute lymphocyte counton 05-24-2021 Lymphocytes Auto (Unsp spec) [#/Vol] 1.58 10*3/uL 0.83-4.51 [facility] Work Phone: [phone] Basophil percentageon 2021 Basophils/100 WBC (Bld) 0.8 % 0-1 [facility] Work Phone: Eosinophils/100 WBC (Bld) 2.4 % 0-5 [facility] Work Phone: [phone] Neutrophils (Bld) [#/Vol] 3.8 10*3/uL 2.0-7.7 [facility] Work Phone: [phone] Neutrophils/100 WBC (Bld) 60.3 % 47-70 [facility] Work Phone: WBC (Bld) [#/Vol] 6.3 10*3/uL 4.4-11.0 [facility] Work Phone: [phone] Blood erythrocytes count (nu mber/volume)on 05-24-2021 RBC (Bld) [#/Vol] 4.50 10*6/uL 4.6-6.2 [facility] Work [phone] Blood hemoglobin measurement (mass/volume)on 05-24-2021 Hemoglobin (Bld) [Mass/Vol] 13.7 g/dL 13.0-16.5 [facility] Work Phone: Blood lymphocytes/100 leukoc yteson 05-24-2021 Lymphocytes/100 WBC (Bld) 25.0 % 19-41 [facility] Work Phone: Blood monocytes/100 leukocyt eson 05-24-2021 Monocytes/100 WBC (Bld) 11.2 % 0-10 [facility] Work Phone: Blood platelet mean volumeon 05-24-2021 Platelet mean volume (Bld) [Entitic vol] 11.3 fL 6.2-12.0 [facility] Work Phone: Determination of erythrocyte mean corpuscular volume (MCV)on 05-24-2021 MCV (RBC) [Entitic vol] 92.9 fL 80-94 [facility] Work Phone: Hematocrit Auto (Bld) [Volum e fraction]on 05-24-2021 Hematocrit (Bld) [Volume fraction] 41.8 % 40-54 [facility] Work Phone: Laboratory - Hematology and Cell countson 05-24-2021 Erythrocyte distribution width (RBC) [Entitic vol] 42.8 fL 35.1-43.9 [facility] Work Phone: Erythrocyte distribution width (RBC) [Ratio] 12.6 % 11.6-14.6 [facility] Work Phone: Immature granulocytes/100 WBC (Bld) 0.300 % 0.0-0.9 [facility] Work Phone: Comment on above: IG% - Immature Granu locytes (promyelocytes, myelocytes and metamyelocytes) > 1% indicates that a LEFT SHIFT is Present. MCH (RBC) [Entitic mass] 30.4 pg 27.0-32.0 [facility] Work Phone: Nucleated RBC/100 WBC (Bld) [Ratio] 0 % 0-5 [facility] Work Phone: MCHC Auto (RBC) [Mass/Vol]on 05-24-2021 MCHC (RBC) [Mass/Vol] 32.8 g/dL 32-36 [facility] Work Phone: [phone] Platelets bldon 05-24-2021 Platelets (Bld) [#/Vol] 207 10*3/uL 150-450 [facility] Work Phone: [phone] Absolute lymphocyte counton 05-17-2021 Lymphocytes Auto (Unsp spec) [#/Vol] 1.59 10*3/uL 0.83-4.51 [facility] Work Phone: Basophil percentageon 2021 Basophils/100 WBC (Bld) 0.7 % 0-1 [facility] Work Phone: [phone] Eosinophils/100 WBC (Bld) 1.7 % 0-5 [facility] Work Phone: [phone] Neutrophils (Bld) [#/Vol] 3.5 10*3/uL 2.0-7.7 [facility] Work Phone: [phone] Neutrophils/100 WBC (Bld) 59.5 % 47-70 [facility] Work Phone: [phone] WBC (Bld) [#/Vol] 5.9 10*3/uL 4.4-11.0 [facility] Work Phone: Blood erythrocytes count (nu mber/volume)on 05-17-2021 RBC (Bld) [#/Vol] 4.35 10*6/uL 4.6-6.2 [facility] Work Phone: [phone] Blood hemoglobin measurement (mass/volume)on 05-17-2021 Hemoglobin (Bld) [Mass/Vol] 13.4 g/dL 13.0-16.5 [facility] Work Phone: [phone] Blood lymphocytes/100 leukoc yteson 05-17-2021 Lymphocytes/100 WBC (Bld) 26.9 % 19-41 [facility] Work Phone: [phone] Blood monocytes/100 leukocyt eson 05-17-2021 Monocytes/100 WBC (Bld) 11.0 % 0-10 [facility] Work Phone: Blood platelet mean volumeon 05-17-2021 Platelet mean volume (Bld) [Entitic vol] 11.5 fL 6.2-12.0 [facility] Work Phone: Determination of erythrocyte mean corpuscular volume (MCV)on 05-17-2021 MCV (RBC) [Entitic vol] 92.9 fL 80-94 [facility] Work Phone: Hematocrit Auto (Bld) [Volum e fraction]on 05-17-2021 Hematocrit (Bld) [Volume fraction] 40.4 % 40-54 [facility] Work Phone: Laboratory - Hematology and Cell countson 05-17-2021 Erythrocyte distribution width (RBC) [Entitic vol] 43.4 fL 35.1-43.9 [facility] Work Phone: Erythrocyte distribution width (RBC) [Ratio] 12.7 % 11.6-14.6 [facility] Work Phone: Immature granulocytes/100 WBC (Bld) 0.200 % 0.0-0.9 [facility] Work Phone: Comment on above: IG% - Immature Granu locytes (promyelocytes, myelocytes and metamyelocytes) > 1% indicates that a LEFT SHIFT is Present. MCH (RBC) [Entitic mass] 30.8 pg 27.0-32.0 [facility] Work Phone: Nucleated RBC/100 WBC (Bld) [Ratio] 0 % 0-5 [facility] Work Phone: MCHC Auto (RBC) [Mass/Vol]on 05-17-2021 MCHC (RBC) [Mass/Vol] 33.2 g/dL 32-36 [facility] Work Phone: Platelets bldon 05-17-2021 Platelets (Bld) [#/Vol] 171 10*3/uL 150-450 [facility] Work Phone: ED Provider Noteon 2 ED Provider Note [facility]: [facility] : 1955 Date [...] [employer] Timothy Burton DO 05/15/21 1530 [facility] ED Provider Note [facility] ED eMERGENCY dEPARTMENT eNCOUnter Pt Name: [...] Diagnosis Date ? TREVER (acute kidney injury) ([facility]) ? Alcohol abuse 07/08/2018 ? Anxiety ? C1 spinal cord injury ([facility]) ? Depression ? Fall 06/2018 ? Schizophrenia ([facility]) SURGICAL HISTORY Past Surgical History: [...] of [place] (more content not included)... Normal [facility] Basophil percentageon 2021 Chloride [Moles/Vol] 105 mmol/L 98-107 [facility] Work Phone: Glucose [Mass/Vol] 96 mg/dL 74-106 [facility] Work Phone: Potassium [Moles/Vol] 3.5 mmol/L 3.5-5.1 [facility] Work Phone: Sodium [Moles/Vol] 141 mmol/L 136-145 [facility] Work Phone: Laboratory - Chemistry and C hemistry - challengeon 05-14-2021 CO2 [Moles/Vol] 30.0 mmol/L 21.0-32.0 [facility] Work Phone: Urea nitrogen/Creatinine [Mass ratio] 39.2 mg/mg 10-20 [facility] Work Phone: No Panel Informationon 05-14 Estimated GFR (MDRD) Amer 210 mL/min >60 [facility] Work Phone: Comment on above: GFR Calc Estimated GFR (MDRD) Non-Af Amer 174 mL/min >60 [facility] Work Phone: Comment on above: Non- GFR Calc Serum or plasma calcium gordy urement (mass/volume)on 05-14-2021 Calcium [Mass/Vol] 8.4 mg/dL 8.5-10.1 [facility] Work Phone: Serum or plasma creatinine m easurement (mass/volume)on 05-14-2021 Creatinine [Mass/Vol] 0.51 mg/dL 0.70-1.30 [facility] Work Phone: Comment on above: The validity of the calculated GFR & GFRAA in patients over 70 years has not been determined. Clinical correlation is essential. Serum or plasma urea nitroge n measurement (mass/volume)on 05-14-2021 Urea nitrogen [Mass/Vol] 20 mg/dL 7-18 [facility] Work Phone: Thin prep Papanicolaou smear with manual screeningon 05-14-2021 Thin prep Papanicolaou smear with manual screening 6 5-15 [facility] Work Phone: Absolute lymphocyte counton 05-10-2021 Lymphocytes Auto (Unsp spec) [#/Vol] 1.65 10*3/uL 0.83-4.51 [facility] System Work Phone: Basophil percentageon 2021 Basophils/100 WBC (Bld) 0.5 % 0-1 [facility] Work Phone: Eosinophils/100 WBC (Bld) 0.7 % 0-5 [facility] Work Phone: Neutrophils (Bld) [#/Vol] 5.6 10*3/uL 2.0-7.7 [facility] Work Phone: Neutrophils/100 WBC (Bld) 69.5 % 47-70 [facility] Work Phone: WBC (Bld) [#/Vol] 8.1 10*3/uL 4.4-11.0 [facility] Work Phone: Blood erythrocytes count (nu mber/volume)on 05-10-2021 RBC (Bld) [#/Vol] 4.52 10*6/uL 4.6-6.2 [facility]: Blood hemoglobin measurement (mass/volume)on 05-10-2021 Hemoglobin (Bld) [Mass/Vol] 13.8 g/dL 13.0-16.5 [facility] Work Phone: Blood lymphocytes/100 leukoc yteson 05-10-2021 Lymphocytes/100 WBC (Bld) 20.4 % 19-41 [facility] Work Phone: Blood monocytes/100 leukocyt eson 05-10-2021 Monocytes/100 WBC (Bld) 8.4 % 0-10 [facility] Work Phone: Blood platelet mean volumeon 05-10-2021 Platelet mean volume (Bld) [Entitic vol] 11.3 fL 6.2-12.0 [facility] Work Phone: Determination of erythrocyte mean corpuscular volume (MCV)on 05-10-2021 MCV (RBC) [Entitic vol] 91.8 fL 80-94 [facility] Work Phone: Hematocrit Auto (Bld) [Volum e fraction]on 05-10-2021 Hematocrit (Bld) [Volume fraction] 41.5 % 40-54 [facility] Work Phone: Laboratory - Hematology and Cell countson 05-10-2021 Erythrocyte distribution width (RBC) [Entitic vol] 42.9 fL 35.1-43.9 [facility] Work Phone: Erythrocyte distribution width (RBC) [Ratio] 12.8 % 11.6-14.6 [facility] Work Phone: Immature granulocytes/100 WBC (Bld) 0.500 % 0.0-0.9 [facility] Work Phone: Comment on above: IG% - Immature Granu locytes (promyelocytes, myelocytes and metamyelocytes) > 1% indicates that a LEFT SHIFT is Present. MCH (RBC) [Entitic mass] 30.5 pg 27.0-32.0 [facility] Work Phone: Nucleated RBC/100 WBC (Bld) [Ratio] 0 % 0-5 [facility] Work Phone: MCHC Auto (RBC) [Mass/Vol]on 05-10-2021 MCHC (RBC) [Mass/Vol] 33.3 g/dL 32-36 [facility] Work [facility]: Platelets bldon 05-10-2021 Platelets (Bld) [#/Vol] 191 10*3/uL 150-450 [facility] Work Phone: Absolute lymphocyte counton 05-03-2021 Lymphocytes Auto (Unsp spec) [#/Vol] 1.69 10*3/uL 0.83-4.51 [facility] Work Phone: Basophil percentageon 2021 Basophils/100 WBC (Bld) 0.6 % 0-1 [facility] Work Phone: Eosinophils/100 WBC (Bld) 0.7 % 0-5 [facility] Work Phone: Neutrophils (Bld) [#/Vol] 4.6 10*3/uL 2.0-7.7 [facility] Work Phone: Neutrophils/100 WBC (Bld) 64.4 % 47-70 [facility] Work Phone: WBC (Bld) [#/Vol] 7.2 10*3/uL 4.4-11.0 [facility]: Blood erythrocytes count (nu mber/volume)on 05-03-2021 RBC (Bld) [#/Vol] 4.55 10*6/uL 4.6-6.2 [facility] Work [facility]: Blood hemoglobin measurement (mass/volume)on 05-03-2021 Hemoglobin (Bld) [Mass/Vol] 14.0 g/dL 13.0-16.5 [facility] Work Phone: Blood lymphocytes/100 leukoc yteson 05-03-2021 Lymphocytes/100 WBC (Bld) 23.6 % 19-41 [facility] Work Phone: Blood monocytes/100 leukocyt eson 05-03-2021 Monocytes/100 WBC (Bld) 10.3 % 0-10 [facility] Work Phone: Blood platelet mean volumeon 05-03-2021 Platelet mean volume (Bld) [Entitic vol] 11.7 fL 6.2-12.0 [facility] Work Phone: Determination of erythrocyte mean corpuscular volume (MCV)on 05-03-2021 MCV (RBC) [Entitic vol] 93.2 fL 80-94 [facility] Work Phone: Hematocrit Auto (Bld) [Volum e fraction]on 05-03-2021 Hematocrit (Bld) [Volume fraction] 42.4 % 40-54 [facility] Work Phone: Laboratory - Hematology and Cell countson 05-03-2021 Erythrocyte distribution width (RBC) [Entitic vol] 44.2 fL 35.1-43.9 [facility] Work Phone: Erythrocyte distribution width (RBC) [Ratio] 13.1 % 11.6-14.6 [facility] Work Phone: Immature granulocytes/100 WBC (Bld) 0.400 % 0.0-0.9 [facility] Work Phone: Comment on above: IG% - Immature Granu locytes (promyelocytes, myelocytes and metamyelocytes) > 1% indicates that a LEFT SHIFT is Present. MCH (RBC) [Entitic mass] 30.8 pg 27.0-32.0 [facility] Work Phone: Nucleated RBC/100 WBC (Bld) [Ratio] 0 % 0-5 [facility] Work Phone: MCHC Auto (RBC) [Mass/Vol]on 05-03-2021 MCHC (RBC) [Mass/Vol] 33.0 g/dL 32-36 [facility] Work Phone: Platelets bldon 05-03-2021 Platelets (Bld) [#/Vol] 175 10*3/uL 150-450 [facility] Work Phone: Absolute lymphocyte counton 04-26-2021 Lymphocytes Auto (Unsp spec) [#/Vol] 1.68 10*3/uL 0.83-4.51 [facility] Work Phone: [phone] Basophil percentageon 2020 Eosinophils/100 WBC (Bld) 1.1 % 0-5 [facility] Work Phone: [phone] Neutrophils (Bld) [#/Vol] 4.5 10*3/uL 2.0-7.7 [facility] Work Phone: [phone] WBC (Bld) [#/Vol] 7.2 10*3/uL 4.4-11.0 [facility] Work Phone: Blood erythrocytes count (nu mber/volume)on 04-26-2021 RBC (Bld) [#/Vol] 4.32 10*6/uL 4.6-6.2 [facility] Work Phone: Blood hemoglobin measurement (mass/volume)on 04-26-2021 Hemoglobin (Bld) [Mass/Vol] 13.5 g/dL 13.0-16.5 [facility] Work Phone: Blood lymphocytes/100 leukoc yteson 04-26-2021 Lymphocytes/100 WBC (Bld) 23.5 % 19-41 [facility] Work Phone: Blood monocytes/100 leukocyt eson 04-26-2021 Monocytes/100 WBC (Bld) 11.0 % 0-10 [facility] Work Phone: Blood platelet mean volumeon 04-26-2021 Platelet mean volume (Bld) [Entitic vol] 11.0 fL 6.2-12.0 [facility] Work Phone: Determination of erythrocyte mean corpuscular volume (MCV)on 04-26-2021 MCV (RBC) [Entitic vol] 93.3 fL 80-94 [facility] Work Phone: Hematocrit Auto (Bld) [Volum e fraction]on 04-26-2021 Hematocrit (Bld) [Volume fraction] 40.3 % 40-54 [facility] Work Phone: Laboratory - Hematology and Cell countson 04-26-2021 Basophils/100 WBC (Unsp spec) 0.6 % 0-1 [facility] Work Phone: Erythrocyte distribution width (RBC) [Entitic vol] 45.8 fL 35.1-43.9 [facility] Work Phone: Erythrocyte distribution width (RBC) [Ratio] 13.2 % 11.6-14.6 [facility] Work Phone: Immature granulocytes/100 WBC (Bld) 0.600 % 0.0-0.9 [facility] Work Phone: Comment on above: IG% - Immature Granu locytes (promyelocytes, myelocytes and metamyelocytes) > 1% indicates that a LEFT SHIFT is Present. MCH (RBC) [Entitic mass] 31.3 pg 27.0-32.0 [facility] Work Phone: Neutrophils/100 WBC (Bld) 63.2 % 47-70 [facility] Work Phone: Nucleated RBC/100 WBC (Bld) [Ratio] 0 % 0-5 [facility] Work Phone: MCHC Auto (RBC) [Mass/Vol]on 04-26-2021 MCHC (RBC) [Mass/Vol] 33.5 g/dL 32-36 [facility] Work Phone: Platelets bldon 04-26-2021 Platelets (Bld) [#/Vol] 172 10*3/uL 150-450 [facility] Work Phone: Absolute lymphocyte counton 04-19-2021 Lymphocytes Auto (Unsp spec) [#/Vol] 1.31 10*3/uL 0.83-4.51 [facility] Work Phone: Basophil percentageon 2020 Eosinophils/100 WBC (Bld) 2.8 % 0-5 [facility] Work Phone: [phone] Neutrophils (Bld) [#/Vol] 3.0 10*3/uL 2.0-7.7 [facility] Work Phone: WBC (Bld) [#/Vol] 5.0 10*3/uL 4.4-11.0 [facility] Work Phone: [phone] Blood erythrocytes count (nu mber/volume)on 04-19-2021 RBC (Bld) [#/Vol] 4.26 10*6/uL 4.6-6.2 [facility] Work Phone: [phone] Blood hemoglobin measurement (mass/volume)on 04-19-2021 Hemoglobin (Bld) [Mass/Vol] 13.2 g/dL 13.0-16.5 [facility] Work Phone: Blood lymphocytes/100 leukoc yteson 04-19-2021 Lymphocytes/100 WBC (Bld) 26.1 % 19-41 [facility] Work Phone: [phone] Blood monocytes/100 leukocyt eson 04-19-2021 Monocytes/100 WBC (Bld) 10.0 % 0-10 [facility] Work Phone: Blood platelet mean volumeon 04-19-2021 Platelet mean volume (Bld) [Entitic vol] 10.9 fL 6.2-12.0 [facility] Work Phone: Determination of erythrocyte mean corpuscular volume (MCV)on 04-19-2021 MCV (RBC) [Entitic vol] 93.7 fL 80-94 [facility] Work Phone: Hematocrit Auto (Bld) [Volum e fraction]on 04-19-2021 Hematocrit (Bld) [Volume fraction] 39.9 % 40-54 [facility] Work Phone: Laboratory - Hematology and Cell countson 04-19-2021 Basophils/100 WBC (Unsp spec) 1.0 % 0-1 [facility] Work Phone: Erythrocyte distribution width (RBC) [Entitic vol] 46.7 fL 35.1-43.9 [facility] Work Phone: Erythrocyte distribution width (RBC) [Ratio] 13.7 % 11.6-14.6 [facility] Work Phone: Immature granulocytes/100 WBC (Bld) 0.400 % 0.0-0.9 [facility] Work Phone: Comment on above: IG% - Immature Granu locytes (promyelocytes, myelocytes and metamyelocytes) > 1% indicates that a LEFT SHIFT is Present. MCH (RBC) [Entitic mass] 31.0 pg 27.0-32.0 [facility] Work Phone: Neutrophils/100 WBC (Bld) 59.7 % 47-70 [facility] Work Phone: Nucleated RBC/100 WBC (Bld) [Ratio] 0 % 0-5 [facility] Work Phone: [phone] MCHC Auto (RBC) [Mass/Vol]on 04-19-2021 MCHC (RBC) [Mass/Vol] 33.1 g/dL 32-36 [facility] Work Phone: [phone] Platelets bldon 04-19-2021 Platelets (Bld) [#/Vol] 165 10*3/uL 150-450 [facility] Work Phone: Absolute lymphocyte counton 04-12-2021 Lymphocytes Auto (Unsp spec) [#/Vol] 1.41 10*3/uL 0.83-4.51 [facility] Work Phone: Basophil percentageon 2020 Bilirubin [Mass/Vol] 0.40 mg/dL 0.20-1.00 [facility] Work Phone: [phone] Comment on above: For patients on eltr ombopag therapy, use of Dimension [place] TBIL is not recommended. Eosinophils/100 WBC (Bld) 0.9 % 0-5 [facility] Work Phone: Neutrophils (Bld) [#/Vol] 3.4 10*3/uL 2.0-7.7 [facility] Work Phone: [phone] Protein [Mass/Vol] 5.7 g/dL 6.4-8.2 [facility] Work Phone: [phone] WBC (Bld) [#/Vol] 5.5 10*3/uL 4.4-11.0 [facility] Work Phone: Blood erythrocytes count (nu mber/volume)on 04-12-2021 RBC (Bld) [#/Vol] 4.09 10*6/uL 4.6-6.2 [facility] Work Phone: Blood hemoglobin measurement (mass/volume)on 04-12-2021 Hemoglobin (Bld) [Mass/Vol] 12.4 g/dL 13.0-16.5 [facility] Work Phone: Blood lymphocytes/100 leukoc yteson 04-12-2021 Lymphocytes/100 WBC (Bld) 25.9 % 19-41 [facility] Work Phone: Blood monocytes/100 leukocyt eson 04-12-2021 Monocytes/100 WBC (Bld) 9.2 % 0-10 [facility] Work Phone: Blood platelet mean volumeon 04-12-2021 Platelet mean volume (Bld) [Entitic vol] 11.1 fL 6.2-12.0 [facility] Work Phone: Determination of erythrocyte mean corpuscular volume (MCV)on 04-12-2021 MCV (RBC) [Entitic vol] 93.4 fL 80-94 [facility] Work Phone: Direct bilirubinon 1 Bilirubin.direct [Mass/Vol] 0.08 mg/dL 0.00-0.30 [facility] Work Phone: Hematocrit Auto (Bld) [Volum e fraction]on 04-12-2021 Hematocrit (Bld) [Volume fraction] 38.2 % 40-54 [facility] Work Phone: Laboratory - Chemistry and C hemistry - challengeon 04-12-2021 ALP [Catalytic activity/Vol] 101 U/L 45-117 [facility] Work Phone: ALT [Catalytic activity/Vol] 30 U/L 16-61 [facility] Work Phone: Globulin (S) [Mass/Vol] 2.9 g/dL 2.2-4.2 [facility] Work Phone: Laboratory - Hematology and Cell countson 04-12-2021 Basophils/100 WBC (Unsp spec) 0.6 % 0-1 [facility] Work Phone: Erythrocyte distribution width (RBC) [Entitic vol] 46.7 fL 35.1-43.9 [facility] Work Phone: Erythrocyte distribution width (RBC) [Ratio] 13.7 % 11.6-14.6 [facility] Work Phone: Immature granulocytes/100 WBC (Bld) 0.400 % 0.0-0.9 [facility] Work Phone: Comment on above: IG% - Immature Granu locytes (promyelocytes, myelocytes and metamyelocytes) > 1% indicates that a LEFT SHIFT is Present. MCH (RBC) [Entitic mass] 30.3 pg 27.0-32.0 [facility] Work Phone: Neutrophils/100 WBC (Bld) 63.0 % 47-70 [facility] Work Phone: Nucleated RBC/100 WBC (Bld) [Ratio] 0 % 0-5 [facility] Work Phone: MCHC Auto (RBC) [Mass/Vol]on 04-12-2021 MCHC (RBC) [Mass/Vol] 32.5 g/dL 32-36 [facility] Work Phone: Platelets bldon 04-12-2021 Platelets (Bld) [#/Vol] 173 10*3/uL 150-450 [facility] Work Phone: Serum or plasma albumin gordy urement (mass/volume)on 04-12-2021 Albumin [Mass/Vol] 2.8 g/dL 3.2-5.0 [facility] Work Phone: Thin prep Papanicolaou smear with manual screeningon 04-12-2021 Thin prep Papanicolaou smear with manual screening 15 U/L 15-37 [facility] Work Phone: Absolute lymphocyte counton 04-07-2021 Lymphocytes Auto (Unsp spec) [#/Vol] 1.55 10*3/uL 0.83-4.51 [facility] Work Phone: Basophil percentageon 2020 Eosinophils/100 WBC (Bld) 0.7 % 0-5 [facility] Work Phone: Neutrophils (Bld) [#/Vol] 5.3 10*3/uL 2.0-7.7 [facility] Work Phone: WBC (Bld) [#/Vol] 8.1 10*3/uL 4.4-11.0 [facility] Work Phone: Blood erythrocytes count (nu mber/volume)on 04-07-2021 RBC (Bld) [#/Vol] 4.18 10*6/uL 4.6-6.2 [facility] Work Phone: Blood hemoglobin measurement (mass/volume)on 04-07-2021 Hemoglobin (Bld) [Mass/Vol] 12.9 g/dL 13.0-16.5 [facility] Work Phone: Blood lymphocytes/100 leukoc yteson 04-07-2021 Lymphocytes/100 WBC (Bld) 19.2 % 19-41 [facility] Work Phone: Blood monocytes/100 leukocyt eson 04-07-2021 Monocytes/100 WBC (Bld) 13.0 % 0-10 [facility] Work Phone: Blood platelet mean volumeon 04-07-2021 Platelet mean volume (Bld) [Entitic vol] 10.9 fL 6.2-12.0 [facility] Work Phone: Determination of erythrocyte mean corpuscular volume (MCV)on 04-07-2021 MCV (RBC) [Entitic vol] 92.6 fL 80-94 [facility] Work Phone: Hematocrit Auto (Bld) [Volum e fraction]on 04-07-2021 Hematocrit (Bld) [Volume fraction] 38.7 % 40-54 [facility] Work Phone: Laboratory - Hematology and Cell countson 04-07-2021 Basophils/100 WBC (Unsp spec) 0.6 % 0-1 [facility] Work Phone: Erythrocyte distribution width (RBC) [Entitic vol] 45.8 fL 35.1-43.9 [facility] Work Phone: Erythrocyte distribution width (RBC) [Ratio] 13.5 % 11.6-14.6 [facility] Work Phone: Immature granulocytes/100 WBC (Bld) 0.500 % 0.0-0.9 [facility] Work Phone: Comment on above: IG% - Immature Granu locytes (promyelocytes, myelocytes and metamyelocytes) > 1% indicates that a LEFT SHIFT is Present. MCH (RBC) [Entitic mass] 30.9 pg 27.0-32.0 [facility] Work Phone: Neutrophils/100 WBC (Bld) 66.0 % 47-70 [facility] Work Phone: Nucleated RBC/100 WBC (Bld) [Ratio] 0 % 0-5 [facility] Work Phone: MCHC Auto (RBC) [Mass/Vol]on 04-07-2021 MCHC (RBC) [Mass/Vol] 33.3 g/dL 32-36 [facility] Work Phone: Platelets bldon 04-07-2021 Platelets (Bld) [#/Vol] 210 10*3/uL 150-450 [facility] Work Phone: CULTURE BLOODon 03-25-2021 Microscopic examination of blood, culture CULTURE BLOOD --> Status: F No growth at 5 days. [facility] Comment on above: Performed By: #### C /BLD ####[facility] [place] [address] CULTURE BLOOD (Two)on 2020 Microscopic examination of blood, culture CULTURE BLOOD (Two) --> Status: F No growth at 5 days. Normal [facility] Comment on above: Performed By: #### C /BLT ####[facility] [place] [address] Basic Metabolic Panelon 11-2 Calcium [Mass/Vol] 8.8 mg/dL Normal 8.4-10.4 [facility] Comment on above: Performed By: #### H EMDF, BMP3 #### [facility] [address] [place] [address] Glucose [Mass/Vol] 103 mg/dL High 70-100 [facility] Comment on above: Performed By: #### H EMDF, BMP3 #### [facility] [address] [place] [address] Anion gap [Moles/Vol] 5 mmol/L Normal 3-13 [facility] Comment on above: Performed By: #### H EMDF, BMP3 #### [facility] [address] [place] [address] CO2 [Moles/Vol] 26 mmol/L Normal 22-30 [facility] Comment on above: Performed By: #### H EMDF, BMP3 #### [facility] [address] [place] [address] Creatinine [Mass/Vol] 0.49 mg/dL Low 0.52-1.25 [facility] Comment on above: Performed By: #### H EMDF, BMP3 #### [facility] [address] [place] [address] eGFR OTHER > 90.0 Normal >60 [facility] [address] [place] [address] GFR/1.73 sq M.predicted among blacks MDRD (S/P/Bld) [Vol rate/Area] mL/min/{1.73_m2} Normal >60 [facility] Comment on above: Performed By: #### H MAYKEL BMP3 #### [facility] [address] [place] [address] Urea nitrogen [Mass/Vol] 30 mg/dL High 7-17 [facility] Comment on above: Performed By: #### H MAYKEL BMP3 #### [facility] [address] [place] [address] Chloride [Moles/Vol] 112 mmol/L High 98-107 [facility] Comment on above: Performed By: #### H MAYKEL BMP3 #### [facility] [address] [place] [address] Potassium [Moles/Vol] 4.1 mmol/L Normal 3.5-5.1 [facility] Comment on above: Performed By: #### H MAYKEL BMP3 #### [facility] [address] [place] [address] Sodium [Moles/Vol] 142 mmol/L Normal 135-145 [facility] Comment on above: Performed By: #### Kerri BRAR BMP3 #### [facility] [address] [place] [address] Anion gap [Moles/Vol] 5 mmol/L 3 - 13 mmol/L [facility] Work Phone: Calcium [Mass/Vol] 8.8 mg/dL 8.4 - 10. 4 mg/dL [facility] Work Phone: Chloride [Moles/Vol] 112 mmol/L High 98 - 10 7 mmol/L [facility] Work Phone: CO2 [Moles/Vol] 26 mmol/L 22 - 30 mmol/L [facility] Work Phone: Creatinine [Mass/Vol] 0.49 mg/dL Low 0.52 - 1.25 mg/dL [facility] Work Phone: EGFR IF NonAfrican Vietnamese >90.0 >60 mL/min [facility] Work Phone: Comment on above: KDIGO guidelines [...] MDRD (S/P/Bld) [Vol rate/Area] mL/min/{1.73_m2} >60 mL/min [facility] Work Phone: Glucose [Mass/Vol] 103 mg/dL High 70 - 100 mg/dL [facility] Work Phone: Interpretation and review of laboratory results Abnormal [facility] Work Phone: Potassium [Moles/Vol] 4.1 mmol/L 3.5 - 5.1 mmol/L [facility] Work Phone: Sodium [Moles/Vol] 142 mmol/L 135 - 145 mmol/L [facility] Work Phone: Urea nitrogen (BldV) [Mass/Vol] 30 mg/dL High 7 - 17 mg/dL [facility] Work Phone: Test Performed by [facility] dough [facility], [address] [facility]. [address] LAB [facility] Work Phone: CBC Auto Differentialon 03-02 Hematocrit (Bld) [Volume fraction] 35.0 % Low 40.0 - 52.0 % [facility] Work Phone: Hemoglobin.gastrointest inal spec 1 Ql (Stl) 11.7 g/dL Low 13.0 - 18.0 g/dL [facility] Work Phone: Interpretation and review of laboratory results Abnormal [facility] Work Phone: MCH (RBC) [Entitic mass] 31.0 pg 26.0 - 34.0 pg [facility] Work Phone: MCHC (RBC) [Mass/Vol] 33.4 % 32.0 - 36.0 % [facility] Work Phone: MCV (RBC) [Entitic vol] 92.7 fL 80.0 - 98.0 fL [employer] Phone: Platelet distribution width (Bld) [Ratio] 13.4 % 11.5 - 14.5 % [facility] Phone: Platelet mean volume (Bld) [Entitic vol] 8.6 fL 7.4 - 10.4 fL [facility] Phone: Platelets (Bld) [#/Vol] 236 10*3/uL 140 - 440 10*3/uL [facility] Work Phone: RBC (Bld) [#/Vol] 3.77 10*6/uL Low 4.40 - 5.9 0 10*6/uL [facility] Work Phone: WBC (Bld) [#/Vol] 12.8 10*3/uL High 3.6 - 10.7 10*3/uL [facility] Work Phone: Test Performed by [facility], [address] [place], [place] [address] [facility] LAB [facility] Work Phone: Glucose,Bedsideon 03-24-2021 Glucose [Mass/Vol] 93 mg/dL Normal 70-100 [facility] Comment on above: Result Comment: Test performed by glucose meter. Results may be 10%-15% lower than serum/plasma values. (CLIA ID [id number]) Performed By: #### H MAYKEL, BMP3 #### [facility] [address] [place] [address] Glucose [Mass/Vol] 166 mg/dL High 70-100 [facility] Comment on above: Result Comment: Test performed by glucose meter. Results may be 10%-15% lower than serum/plasma values. (CLIA ID [id number]) Performed By: #### B GLU ####[facility] [place] [address] Hemogram w/ Autodiffon 03-24 Erythrocyte distribution width (RBC) [Ratio] 13.4 % Normal 11.5-14.5 [facility] Comment on above: Performed By: #### H ALCIRAF, BMP3 #### [facility] [address] [place] [address] Hematocrit (Bld) [Volume fraction] 35.0 % Low 40.0-52.0 [facility] Comment on above: Performed By: #### H EMDF, BMP3 #### [facility] [address] [place] [address] Hemoglobin (Bld) [Mass/Vol] 11.7 g/dL Low 13.0-18.0 [facility] Comment on above: Performed By: #### H EMDF, BMP3 #### [facility] [address] [place] [address] MCH (RBC) [Entitic mass] 31.0 pg Normal 26.0-34.0 [facility] Comment on above: Performed By: #### H EMDF, BMP3 #### [facility] [address] [place] [address] MCHC 33.4 % Normal 32.0-36.0 [facility] Comment on above: Performed By: #### H EMDF, BMP3 #### [facility] [address] [place] [address] MCV (RBC) [Entitic vol] 92.7 fL Normal 80.0-98.0 [facility] Comment on above: Performed By: #### H EMDF, BMP3 #### [facility] [address] [place] [address] Platelet mean volume (Bld) [Entitic vol] 8.6 fL Normal 7.4-10.4 [facility] Comment on above: Performed By: #### H EMDF, BMP3 #### [facility] [address] [place] [address] Platelets (Bld) [#/Vol] 236 10*3/uL Normal 140-440 [facility] Comment on above: Performed By: #### H EMDF, BMP3 #### [facility] [address] [place] [address] RBC (Bld) [#/Vol] 3.77 10*6/uL Low 4.40-5.90 [facility] Comment on above: Performed By: #### H EMDF, BMP3 #### [facility] [address] [place] [address] WBC (Bld) [#/Vol] 12.8 10*3/uL High 3.6-10.7 [facility] Comment on above: Performed By: #### H EMDF, BMP3 #### [facility] [address] [place] [address] Manual Diffon 03-24-2021 Abs Lymph Cnt 1.7 10*3/uL Normal 1.1-4.5 [facility] Comment on above: Performed By: #### H EMDF, BMP3 #### [facility] [address] [place] [address] Abs Monocyte Cnt 0.8 10*3/uL Normal 0.2-1.1 [facility] Comment on above: Performed By: #### H EMDF, BMP3 #### [facility] [address] [place] [address] Abs Neutrophile Cnt 10.1 10*3/uL High 2.2-8.2 [facility] Comment on above: Performed By: #### H EMDF, BMP3 #### [facility] [address] [place] [address] Anisocytosis Slight Normal [facility] Comment on above: Performed By: #### H EMDF, BMP3 #### [facility] [address] [place] [address] Atypical Lymphocytes 2 % Abnormal <1 [facility] Comment on above: Performed By: #### H EMDF, BMP3 #### [facility] [address] [place] [address] Abdoul Cells Slight Normal [facility] Comment on above: Performed By: #### H EMDF, BMP3 #### [facility] [address] [place] [address] Lymphocytes 11 % Low 20-40 [facility] Comment on above: Performed By: #### H EMDF, BMP3 #### [facility] [address] [place] [address] Monocytes 6 % Normal 2-10 [facility] Comment on above: Performed By: #### H EMDF, BMP3 #### [facility] [address] [place] [address] Myelocytes 2 % Abnormal <1 [facility] Comment on above: Performed By: #### H EMDF, BMP3 #### [facility] [address] [place] [address] [facility] Comment on above: Performed By: #### H EMDF, BMP3 #### [facility] [address] [place] [address] Poikilocytosis Slight Normal [facility] Comment on above: Performed By: #### H EMDF, BMP3 #### [facility] [address] [place] [address] Polychromasia Slight Normal [facility] [facility] Comment on above: Performed By: #### H EMDF, BMP3 #### [facility] [address] [place] [address] RBC Morphology ABNORMAL Normal [facility] Comment on above: Performed By: #### H EMDF, BMP3 #### [facility] [address] [place] [address] Seg Neutrophils 79 % Normal 40-80 [facility] Comment on above: Performed By: #### H EMDF, BMP3 #### [facility] [address] [place] [address] Tear Drop Forms Slight Normal [facility] Comment on above: Performed By: #### H EMDF, BMP3 #### [facility] [address] [place] [address] Abs Baso Cnt 0.0 10*3/uL Normal 0.0-0.2 [facility] Comment on above: Performed By: #### H EMDF, BMP3 #### [facility] [address] [place] [address] Abs Eosin Cnt 0.0 10*3/uL Normal 0.0-0.5 [facility] Comment on above: Performed By: #### H EMDF, BMP3 #### [facility] [address] [place] [address] Bands 0 % Normal 0-3 [facility] Comment on above: Performed By: #### H EMDF, BMP3 #### [facility] [address] [place] [address] Basophils 0 % Normal 0-2 [facility] Comment on above: Performed By: #### H EMDF, BMP3 #### [facility] [address] [place] [address] Cells counted 100 Normal [facility] Comment on above: Performed By: #### H EMDF, BMP3 #### [facility] [address] [place] [address] Eosinophils 0 % Low 1-6 [facility] Comment on above: Performed By: #### H EMDF, BMP3 #### [facility] [address] [place] [address] Manual Differentialon 2020 Absolute Baso # 0.0 10*3/uL 0.0 - 0.2 10*3/uL [facility] Work Phone: Absolute Eos # 0.0 10*3/uL 0.0 - 0.5 10*3/uL [facility] Work Phone: Absolute Lymph # 1.7 10*3/uL 1.1 - 4.5 10*3/uL [facility] Work Phone: Absolute [place] # 0.8 10*3/uL 0.2 - 1.1 10*3/uL [facility] Work Phone: Absolute Neut # 10.1 10*3/uL High 2.2 - 8.2 10*3/uL [facility] Work Phone: [phone] Anisocytosis Slight [facility] Work Phone: Atypical Lymphocytes 2 % Abnormal <1 [facility] Work Phone: Bands 0 % 0 - 3 % [facility] Work Phone: Basophils/100 WBC (Bld) 0 % 0 - 2 % S [facility] Work Phone: [place] Cells Slight [facility] Work Phone: Eosinophils/100 WBC [...] 100 [facility] Work Phone: Test Performed by [employer] [facility], [address] [place], [place] [id number] [place] [address] LAB [facility] Work Phone: POCT Glucoseon 03-24-2021 Glucose [Mass/Vol] 93 mg/dL 70 - 100 mg/dL [facility] Work Phone: Comment on above: Test performed by gl ucose meter. Results may be 10%-15% lower than serum/plasma values. (CLIA ID [id number]) Test Performed by [facility], [address] [place] [address] [facility] LAB [facility] Work Phone: Basic Metabolic Panelon 03-02 Calcium [Mass/Vol] 8.8 mg/dL Normal 8.4-10.4 [facility] Comment on above: Performed By: #### H ALCIRAF BMP3 #### [facility] [address] [place] [address] Glucose [Mass/Vol] 143 mg/dL High 70-100 [facility] Comment on above: Performed By: #### H ALCIRAF BMP3 #### [facility] [address] [place] [address] Anion gap [Moles/Vol] 8 mmol/L Normal 3-13 [facility] Comment on above: Performed By: #### H ALCIRAF, BMP3 #### [facility] [address] [place] [address] CO2 [Moles/Vol] 24 mmol/L Normal 22-30 [facility] Comment on above: Performed By: #### H EMDF, BMP3 #### [facility] [address] [place] [address] Creatinine [Mass/Vol] 0.47 mg/dL Low 0.52-1.25 [facility] Comment on above: Performed By: #### H EMDF, BMP3 #### [facility] [address] [place] [address] eGFR OTHER > 90.0 Normal >60 [facility] [...] [facility] [address] [place] [address] GFR/1.73 sq M.predicted among blacks MDRD (S/P/Bld) [Vol rate/Area] mL/min/{1.73_m2} Normal >60 [facility] Comment on above: Performed By: #### H MAYKEL BMP3 #### [facility] [address] [place] [address] Urea nitrogen [Mass/Vol] 32 mg/dL High 7-17 [facility] Comment on above: Performed By: #### H MAYKEL BMP3 #### [facility] [address] [place] [address] Chloride [Moles/Vol] 110 mmol/L High 98-107 [facility] Comment on above: Performed By: #### H MAYKEL BMP3 #### [facility] [address] [place] [address] Potassium [Moles/Vol] 3.9 mmol/L Normal 3.5-5.1 [facility] Comment on above: Performed By: #### H MAYKEL BMP3 #### [facility] [address] [place] [address] Sodium [Moles/Vol] 142 mmol/L Normal 135-145 [facility] Comment on above: Performed By: #### H MAYKEL BMP3 #### [facility] [address] [place] [address] Anion gap [Moles/Vol] 8 mmol/L 3 - 13 mmol/L [facility] Work Phone: Calcium [Mass/Vol] 8.8 mg/dL 8.4 - 10. 4 mg/dL [facility] Work Phone: Chloride [Moles/Vol] 110 mmol/L High 98 - 10 7 mmol/L [facility] Work Phone: CO2 [Moles/Vol] 24 mmol/L 22 - 30 mmol/L [facility] Work Phone: Creatinine [Mass/Vol] 0.47 mg/dL Low 0.52 - 1.25 mg/dL [facility] Work Phone: EGFR IF NonAfrican Vietnamese >90.0 >60 mL/min [facility] Work Phone: Comment [...] 32 mg/dL High 7 - 17 mg/dL [facility] Work Phone: Test Performed by [facility], [address] [place], [place], [place] [address] [facility] LAB [facility] Work Phone: CBC Auto Differentialon 11-2 Absolute Baso # 0.0 10*3/uL 0.0 - 0.2 10*3/uL [facility] Work Phone: Absolute Neut # 13.5 10*3/uL High 1.8 - 7.0 10*3/uL [facility] Work Phone: Basophils/100 WBC (Bld) 0.3 % 0.0 - 2.0 % [facility] Work Phone: Eosinophils (Bld) [#/Vol] 0.0 10*3/uL 0.0 - 0.5 10*3/uL [facility] Work Phone: Eosinophils/100 WBC (Bld) 0.0 % Low 1.0 - 6.0 % [facility] Work Phone: Granulocytes/100 WBC (Bld) 89.5 % High 40.0 - 80.0 % [facility] Work Phone: Hematocrit (Bld) [Volume fraction] 36.5 % Low 40.0 - 52.0 % [facility] Work Phone: Hemoglobin.gastrointest inal spec 1 Ql (Stl) 12.4 g/dL Low 13.0 - 18.0 g/dL [facility] Work Phone: Interpretation and review of laboratory results Abnormal [facility] Work Phone: Lymphocytes (Bld) [#/Vol] 0.7 10*3/uL Low 1.0 - 4.3 10*3/uL [facility] Work Phone: Lymphocytes/100 WBC (Bld) 4.8 % Low 20.0 - 40.0 % [facility] Work Phone: MCH (RBC) [Entitic mass] 31.3 pg 26.0 - 34.0 pg [facility] Work Phone: MCHC (RBC) [Mass/Vol] 34.1 % 32.0 - 36.0 % [facility] Work Phone: MCV (RBC) [Entitic vol] 92.0 fL 80.0 - 98.0 fL [facility] Work Phone: Monocytes (Bld) [#/Vol] 0.8 10*3/uL 0.0 - 0.8 10*3/uL [facility] Work Phone: Monocytes/100 WBC (Bld) 5.4 % 2.0 - 10.0 % [facility] Work Phone: Platelet distribution width (Bld) [Ratio] 13.2 % 11.5 - 14.5 % [employer] Phone: Platelet mean volume (Bld) [Entitic vol] 9.0 fL 7.4 - 10.4 fL [facility] Work Phone: Platelets (Bld) [#/Vol] 211 10*3/uL 140 - 440 10*3/uL [facility] Work Phone: RBC (Bld) [#/Vol] 3.96 10*6/uL Low 4.40 - 5.9 0 10*6/uL [facility] Work Phone: WBC (Bld) [#/Vol] 15.1 10*3/uL High 3.6 - 10.7 10*3/uL [facility] Work Phone: Test Performed by [facility], [address] [place], [place] [id number] [place] [address] LAB [facility] Work Phone: Glucose,Bedsideon 03-23-2021 Glucose [Mass/Vol] 122 mg/dL High 70-100 [facility] dough [facility] Comment on above: Result Comment: Test performed by glucose meter. Results may be 10%-15% lower than serum/plasma values. (CLIA ID [id number]) Performed By: #### H MAYKEL BMP3 #### [facility] [address] [place] [address] Glucose [Mass/Vol] 129 mg/dL High 70-100 [facility] Comment on above: Test performed by gl ucose meter. Results may be 10%-15% lower than serum/plasma values. (CLIA ID [id number]) Result Comment: Test performed by glucose meter. Results may be 10%-15% lower than serum/plasma values. (CLIA ID [id number]) Performed By: #### B GLU ####[facility] [place] [address] Glucose [Mass/Vol] 136 mg/dL High 70-100 [facility] Comment on above: Result Comment: Test performed by glucose meter. Results may be 10%-15% lower than serum/plasma values. (CLIA ID [id number]) Performed By: #### B GLU #### [facility] [address] [place] [address] Hemogram w/ Autodiffon 03-23 Abs Baso Cnt 0.0 10*3/uL Normal 0.0-0.2 [facility] Comment on above: Performed By: #### H MAYKEL BMP3 #### [facility] [address] [place] [address] Abs Neutrophile Cnt 13.5 10*3/uL High 1.8-7.0 [facility] Comment on above: Performed By: #### H MAYKEL BMP3 #### [facility] [address] [place] [address] Basophils/100 WBC (Bld) 0.3 % Normal 0.0-2.0 [facility] Comment on above: Performed By: #### H MAYKEL BMP3 #### [facility] [address] [place] [address] Eosinophils (Bld) [#/Vol] 0.0 10*3/uL Normal 0.0-0.5 [facility] Comment on above: Performed By: #### H ALCIRAF BMP3 #### [facility] [address] [place] [address] Eosinophils/100 WBC (Bld) 0.0 % Low 1.0-6.0 [facility] Comment on above: Performed By: #### H MAYKEL BMP3 #### [facility] [address] [place] [address] Erythrocyte distribution width (RBC) [Ratio] 13.2 % Normal 11.5-14.5 [facility] Comment on above: Performed By: #### H EMDMaurice BMP3 #### [facility] [address] [place] [address] Granulocytes/100 WBC (Bld) 89.5 % High 40.0-80.0 [facility] Comment on above: Performed By: #### H MAYKEL BMP3 #### [facility] [address] [place] [address] Hematocrit (Bld) [Volume fraction] 36.5 % Low 40.0-52.0 [facility] Comment on above: Performed By: #### H MAYKEL BMP3 #### [facility] [address] [place] [address] Hemoglobin (Bld) [Mass/Vol] 12.4 g/dL Low 13.0-18.0 [facility] Comment on above: Performed By: #### H MAYKEL BMP3 #### [facility] [address] [place] [address] Lymphocytes (Bld) [#/Vol] 0.7 10*3/uL Low 1.0-4.3 [facility] Comment on above: Performed By: #### H MAYKEL BMP3 #### [facility] [address] [place] [address] Lymphocytes/100 WBC (Bld) 4.8 % Low 20.0-40.0 [facility] Comment on above: Performed By: #### H EMDMaurice BMP3 #### [facility] [address] [place] [address] MCH (RBC) [Entitic mass] 31.3 pg Normal 26.0-34.0 [facility] Comment on above: Performed By: #### H MAYKEL BMP3 #### [facility] [address] [place] [address] MCHC 34.1 % Normal 32.0-36.0 [facility] Comment on above: Performed By: #### H EMDF, BMP3 #### [facility] [address] [place] [address] MCV (RBC) [Entitic vol] 92.0 fL Normal 80.0-98.0 [facility] Comment on above: Performed By: #### H EMDF, BMP3 #### [facility] [address] [place] [address] Monocytes (Bld) [#/Vol] 0.8 10*3/uL Normal 0.0-0.8 [facility] Comment on above: Performed By: #### H EMDF, BMP3 #### [facility] [address] [place] [address] Monocytes/100 WBC (Bld) 5.4 % Normal 2.0-10.0 [facility] Comment on above: Performed By: #### H EMDF, BMP3 #### [facility] [address] [place] [address] Platelet mean volume (Bld) [Entitic vol] 9.0 fL Normal 7.4-10.4 [facility] Comment on above: Performed By: #### H EMDF, BMP3 #### [facility] [address] [place] [address] Platelets (Bld) [#/Vol] 211 10*3/uL Normal 140-440 [facility] Comment on above: Performed By: #### H EMDF, BMP3 #### [facility] [address] [place] [address] RBC (Bld) [#/Vol] 3.96 10*6/uL Low 4.40-5.90 [facility] Comment on above: Performed By: #### H EMDF, BMP3 #### [facility] [address] [place] [address] WBC (Bld) [#/Vol] 15.1 10*3/uL High 3.6-10.7 [facility] Comment on above: Performed By: #### H EMDF, BMP3 #### [facility] [address] [place] [address] No Panel Informationon 03-23 Interpretation and review of laboratory results Abnormal [facility] Work Phone: Test Performed by [facility], [address], [address] LAB [facility] Work Phone: POCT Glucoseon 03-23-2021 Glucose [Mass/Vol] 166 mg/dL High 70 - 100 mg/dL [facility] Comment on above: Test performed by gl ucose meter. Results may be 10%-15% lower than serum/plasma values. (CLIA ID [id number]) Interpretation and review of laboratory results Abnormal [facility] Test Performed by [facility], [address] LAB [facility] Glucose [Mass/Vol] 122 mg/dL High 70 - 100 mg/dL [facility] Work Phone: Comment on above: Test performed by gl ucose meter. Results may be 10%-15% lower than serum/plasma values. (CLIA ID [id number]) Glucose [Mass/Vol] 136 mg/dL High 70 - 100 mg/dL [facility] Comment on above: Test performed by gl ucose meter. Results may be 10%-15% lower than serum/plasma values. (CLIA ID [id number]) Interpretation and review of laboratory results Abnormal [facility] Test Performed by [facility], [address] LAB [facility] CBC Auto Differentialon 03-02 Absolute Baso [...] - 10.7 10*3/uL [facility] Test Performed by [facility] dough [facility], [address], [place], [place] [id number] [place] [address] LAB [facility] Glucose,Bedsideon 03-22-2021 Glucose [Mass/Vol] 134 mg/dL High 70-100 [facility] Comment on above: Result Comment: Test performed by glucose meter. Results may be 10%-15% lower than serum/plasma values. (CLIA ID [id number]) Performed By: #### H EMDF, BMP3 #### [facility] [address] [place] [address] Glucose [Mass/Vol] 190 mg/dL High 70-100 [facility] Comment on above: Result Comment: Test performed by glucose meter. Results may be 10%-15% lower than serum/plasma values. (CLIA ID [id number]) Performed By: #### B GLU #### [facility] [address] [place] [address] Glucose [Mass/Vol] 200 mg/dL High 70-100 [facility] Comment on above: Result Comment: Test performed by glucose meter. Results may be 10%-15% lower than serum/plasma values. (CLIA ID [id number]) Performed By: #### B GLU #### [facility] [address] [place] [address] Glucose [Mass/Vol] 181 mg/dL High 70-100 [facility] Comment on above: Result Comment: Test performed by glucose meter. Results may be 10%-15% lower than serum/plasma values. (CLIA ID [id number]) Performed By: #### B GLU #### [facility] [address] [place] [address] Glucose [Mass/Vol] 186 mg/dL High 70-100 [facility] Comment on above: Result Comment: Test performed by glucose meter. Results may be 10%-15% lower than serum/plasma values. (CLIA ID [id number]) Performed By: #### B GLU #### [facility] [address] [place] [address] Hemoglobin A1Con 03-22-2021 Glucose [Mass/Vol] 108 mg/dL Normal [facility] Comment on above: Performed By: #### B GLU #### [facility] [address] [place] [address] HbA1c (Bld) [Mass fraction] 5.4 % Normal [facility] Comment on above: Result Comment: Norm al less than 5.7% Prediabetes 5.7% to 6.4% Diabetes 6.5% or higher --HgbA1C levels may not be accurate in patients who have renal disease, received recent blood transfusions, are anemic, or who have dyshemoglobinemia. Performed By: #### B GLU #### [facility] [address] [place] [address] HbA1c (Bld) [Mass fraction] 5.4 % [facility] Comment on above: Normal less than 5.7 % Prediabetes 5.7% to 6.4% Diabetes 6.5% or higher --HgbA1C levels may not be accurate in patients who have renal disease, received recent blood transfusions, are anemic, or who have dyshemoglobinemia. Magnesium [Mass/Vol] 108 mg/dL [facility] Test Performed by [facility], [address] [place] [address] [facility] LAB [facility] Hemogram w/ Autodiffon 03-22 Abs Baso Cnt 0.0 10*3/uL Normal 0.0-0.2 [facility] Comment on above: Performed By: #### B GLU #### [facility] [address] [place] [address] Abs Neutrophile Cnt 12.3 10*3/uL High 1.8-7.0 [facility] Comment on above: Performed By: #### B GLU #### [facility] [address] [place] [address] Basophils/100 WBC (Bld) 0.2 % Normal 0.0-2.0 [facility] Comment on above: Performed By: #### B GLU #### [facility] [address] [place] [address] Eosinophils (Bld) [#/Vol] 0.0 10*3/uL Normal 0.0-0.5 [facility] Comment on above: Performed By: #### B GLU #### [facility] [address] [place] [address] Eosinophils/100 WBC (Bld) 0.0 % Low 1.0-6.0 [facility] Comment on above: Performed By: #### B GLU #### [place] [address] [place] [address] Erythrocyte distribution width (RBC) [Ratio] 12.8 % Normal 11.5-14.5 [facility] Comment on above: Performed By: #### B GLU #### [facility] [address] [place] [address] Granulocytes/100 WBC (Bld) 92.7 % High 40.0-80.0 [facility] Comment on above: Performed By: #### B GLU #### [facility] [address] [place] [address] Hematocrit (Bld) [Volume fraction] 35.9 % Low 40.0-52.0 [facility] Comment on above: Performed By: #### B GLU #### [facility] [address] [place] [address] Hemoglobin (Bld) [Mass/Vol] 12.4 g/dL Low 13.0-18.0 [facility] Comment on above: Performed By: #### B GLU #### [facility] [address] [place] [address] Lymphocytes (Bld) [#/Vol] 0.5 10*3/uL Low 1.0-4.3 [facility] Comment on above: Performed By: #### B GLU #### [facility] [address] [place] [address] Lymphocytes/100 WBC (Bld) 3.6 % Low 20.0-40.0 [facility] Comment on above: Performed By: #### B GLU #### [facility] [address] [place] [address] MCH (RBC) [Entitic mass] 31.6 pg Normal 26.0-34.0 [facility] Comment on above: Performed By: #### B GLU #### [facility] [address] [place] [address] MCHC 34.6 % Normal 32.0-36.0 [facility] Comment on above: Performed By: #### B GLU #### [facility] [address] [place] [address] MCV (RBC) [Entitic vol] 91.2 fL Normal 80.0-98.0 [facility] Comment on above: Performed By: #### B GLU #### [facility] [address] [place] [address] Monocytes (Bld) [#/Vol] 0.5 10*3/uL Normal 0.0-0.8 [facility] Comment on above: Performed By: #### B GLU #### [facility] [address] [place] [address] Monocytes/100 WBC (Bld) 3.5 % Normal 2.0-10.0 [facility] Comment on above: Performed By: #### B GLU #### [facility] [address] [place] [address] Platelet mean volume (Bld) [Entitic vol] 9.5 fL Normal 7.4-10.4 [facility] Comment on above: Performed By: #### B GLU #### [facility] [address] [place] [address] Platelets (Bld) [#/Vol] 158 10*3/uL Normal 140-440 [facility] Comment on above: Performed By: #### B GLU #### [facility] [address] [place] [address] RBC (Bld) [#/Vol] 3.93 10*6/uL Low 4.40-5.90 [facility] Comment on above: Performed By: #### B GLU #### [facility] [address] [place] [address] WBC (Bld) [#/Vol] 13.3 10*3/uL High 3.6-10.7 [facility] Comment on above: Performed By: #### B GLU #### [facility] [address] [place] [address] MRSA by PCRon 03-22-2021 Staph Aureus Sc No S. aureus detected. Negative nasal MRSA PCR has a high negative predictive value for MRSA pneumonia. Consider stopping vancomycin if no other clinical indication. Contact Antimicrobial Stewardship for further recommendations. The analytical performance characteristics of this assay have been determined by [employer] in accordance with CLIA regulations. The modifications have not been cleared or approved by the U. S. Food and Drug Administration; however, the FDA has determined that such clearance or approval is not necessary. [facility] Test Performed by [facility], [address] [place] [id number] [place] [address] LAB [facility] POCT GlucoseOrdered By: Same er Morgan on 03-22-2021 Glucose [Mass/Vol] 134 mg/dL High 70 - 100 mg/dL [facility] Work Phone: Comment on above: Test performed by gl ucose meter. Results may be 10%-15% lower than serum/plasma values. (CLIA ID [id number]) Interpretation and review of laboratory results Abnormal [facility] Work Phone: [facility] Work Phone: POCT Glucoseon 03-22-2021 Test Performed by [facility], [address] LAB Glucose [Mass/Vol] 190 mg/dL High 70 - 100 mg/dL [facility] Comment on above: Test performed by gl ucose meter. Results may be 10%-15% lower than serum/plasma values. (CLIA ID [id number]) Interpretation and review of laboratory results Abnormal [facility] Test Performed by [facility], [address] LAB [facility] Glucose [Mass/Vol] 200 mg/dL High 70 - 100 mg/dL [facility] Comment on above: Test performed by gl ucose meter. Results may be 10%-15% lower than serum/plasma values. (CLIA ID [id number]) Interpretation and review of laboratory results Abnormal [facility] Test Performed by [facility] dough [facility], [address], [address] LAB [facility] Glucose [Mass/Vol] 181 mg/dL High 70 - 100 mg/dL [facility] Comment on above: Test performed by gl ucose meter. Results may be 10%-15% lower than serum/plasma values. (CLIA ID [id number]) Interpretation and review of laboratory results Abnormal [facility] Test Performed by [facility], [address], [address] LAB [facility] Glucose [Mass/Vol] 186 mg/dL High 70 - 100 mg/dL [facility] Comment on above: Test performed by gl ucose meter. Results may be 10%-15% lower than serum/plasma values. (CLIA ID [id number]) Interpretation and review of laboratory results Abnormal [facility] Test Performed by [facility] [employer] [address], [place], [place] [id number] [place] [address] LAB [facility] Procalcitoninon 03-22-2021 Procalcitonin 0.09 ng/mL Normal 0.00-0.09 [facility] Comment on above: Performed By: #### H EMDF, BMP3 #### [facility] dough [facility] [address] [place] [address] Interpretation See Below [facility] Comment on above: PCT <0.50 = Low risk of severe sepsis and/or septic shock. PCT >2.00 = High risk of severe sepsis and/or septic shock. Procalcitonin 0.09 ng/mL 0.00 - 0.09 ng/mL [facility] Test Performed by [facility], [address] [place] [address] [facility] LAB [facility] Staph Aureus Complete Nasalo n 03-22-2021 Staph Aureus Complete Nasal Staph Screen --> Status: F No S. aureus detected. Negative nasal MRSA PCR has a high negative predictive value for MRSA pneumonia. Consider stopping vancomycin if no other clinical indication. Contact Antimicrobial Stewardship for further recommendations. The analytical performance characteristics of this assay have been determined by [employer] in accordance with CLIA regulations. The modifications [...] of this assay have been determined by [employer] in accordance with CLIA regulations. The modifications have not been cleared or approved by the U. S. Food and Drug Administration; however, the FDA has determined that such clearance or approval is not necessary. Normal [facility] Comment on above: Performed By: #### S APCR ####[facility] [facility] [id number] [place] [address] Vancomycin Troughon 11-22-20 21 Vancomycin Trough 8.1 ug/mL Low 15.0-20.0 [facility] Comment on above: Result Comment: . Performed By: #### B GLU #### [facility] [address] [place] [address] Vancomycin, Troughon 021 Interpretation and review of laboratory results Abnormal [facility] Vancomycin Tr 8.1 ug/mL Low 15.0 - 20.0 ug/mL [facility] Comment on above: . Test Performed by [facility], [address] [place] [address] [facility] LAB [facility] Basic Metabolic Panelon 03-02 Anion gap [Moles/Vol] 7 mmol/L Normal 3-13 [facility] Comment on above: Performed By: #### H MAYKEL BMP3 #### [facility] [address] [place] [address] Calcium [Mass/Vol] 8.1 mg/dL Low 8.4-10.4 [facility] Comment on above: Performed By: #### H MAYKEL BMP3 #### [facility] [address] [place] [address] CO2 [Moles/Vol] 26 mmol/L Normal 22-30 [facility] Comment on above: Performed By: #### H MAYKEL BMP3 #### [facility] [address] [place] [address] Glucose [Mass/Vol] 156 mg/dL High 70-100 [facility] Comment on above: Performed By: #### H MAYKEL BMP3 #### [facility] [address] [place] [address] Urea nitrogen [Mass/Vol] 19 mg/dL High 7-17 [facility] Comment on above: Performed By: #### H MAYKEL BMP3 #### [facility] [address] [place] [address] Creatinine [Mass/Vol] 0.53 mg/dL Normal 0.52-1.25 [facility] Comment on above: Performed By: #### H ALCIRAF, BMP3 #### [facility] [address] [place] [address] eGFR OTHER > 90.0 Normal >60 [facility] [address] [place] [address] GFR/1.73 sq M.predicted among blacks MDRD (S/P/Bld) [Vol rate/Area] mL/min/{1.73_m2} Normal >60 [facility] Comment on above: Performed By: #### Kerri BRAR BMP3 #### [facility] [address] [place] [address] Chloride [Moles/Vol] 103 mmol/L Normal 98-107 [facility] Comment on above: Performed By: #### H MAYKEL BMP3 #### [facility] [address] [place] [address] Potassium [Moles/Vol] 3.4 mmol/L Low 3.5-5.1 [facility] Comment on above: Performed By: #### H MAYKEL BMP3 #### [facility] [address] [place] [address] Sodium [Moles/Vol] 136 mmol/L Normal 135-145 [facility] Comment on above: Performed By: #### H MAYKEL BMP3 #### [facility] [address] [place] [address] Basic Metabolic Panel w/ Ref marciano to MGon 03-21-2021 Anion gap [Moles/Vol] 7 mmol/L 3 - 13 mmol/L [facility] Work Phone: Calcium [Mass/Vol] 8.1 mg/dL Low 8.4 - 10. 4 mg/dL [facility] Work Phone: Chloride [Moles/Vol] 103 mmol/L 98 - 10 7 mmol/L [facility] Work Phone: CO2 [Moles/Vol] 26 mmol/L 22 - 30 mmol/L [facility] Work Phone: Creatinine [Mass/Vol] 0.53 mg/dL 0.52 - 1.25 mg/dL [facility] Work Phone: EGFR IF NonAfrican Vietnamese >90.0 >60 mL/min [facility] Work Phone: Comment [...] [Moles/Vol] 136 mmol/L 135 - 145 mmol/L [facility] Work Phone: Urea nitrogen (BldV) [Mass/Vol] 19 mg/dL High 7 - 17 mg/dL [facility] Work Phone: Test Performed by [facility] dough [facility], [address] [place], [place] [id number] [place] [address] LAB [facility] Work Phone: CBCon 03-21-2021 Hematocrit (Bld) [Volume fraction] 35.4 % Low 40.0 - 52.0 % [facility] Work Phone: Hemoglobin.gastrointest inal spec 1 Ql (Stl) 11.9 g/dL Low 13.0 - 18.0 g/dL [facility] Work Phone: Interpretation and review of laboratory results Abnormal [facility] Work Phone: MCH (RBC) [Entitic mass] 30.5 pg 26.0 - 34.0 pg [facility] Work Phone: MCHC (RBC) [Mass/Vol] 33.7 % 32.0 - 36.0 % [facility] Work Phone: MCV (RBC) [Entitic vol] 90.6 fL 80.0 - 98.0 fL [facility] Work Phone: Platelet distribution width (Bld) [Ratio] 13.1 % 11.5 - 14.5 % [facility] Work Phone: Platelet mean volume (Bld) [Entitic vol] 9.1 fL 7.4 - 10.4 fL [facility] Work Phone: Platelets (Bld) [#/Vol] 136 10*3/uL Low 140 - 440 10*3/uL [facility] Work Phone: RBC (Bld) [#/Vol] 3.91 10*6/uL Low 4.40 - 5.9 0 10*6/uL [facility] Work Phone: WBC (Bld) [#/Vol] 7.1 10*3/uL 3.6 - 10.7 10*3/uL [facility] Work Phone: Test Performed by [facility], [address] [place] [address] [facility] LAB [facility] Work Phone: Glucose,Bedsideon 03-21-2021 Glucose [Mass/Vol] 131 mg/dL High 70-100 [facility] Comment on above: Result Comment: Test performed by glucose meter. Results may be 10%-15% lower than serum/plasma values. (CLIA ID [id number]) Performed By: #### B GLU #### [facility] [address] [place] [address] Glucose [Mass/Vol] 230 mg/dL High 70-100 [facility] Comment on above: Result Comment: Test performed by glucose meter. Results may be 10%-15% lower than serum/plasma values. (CLIA ID [id number]) Performed By: #### B GLU #### [facility] [address] [place] [address] Hemogramon 03-21-2021 Erythrocyte distribution width (RBC) [Ratio] 13.1 % Normal 11.5-14.5 [facility] Comment on above: Performed By: #### H EMDF, BMP3 #### [facility] [address] [place] [address] Hematocrit (Bld) [Volume fraction] 35.4 % Low 40.0-52.0 [facility] Comment on above: Performed By: #### H EMDF, BMP3 #### [facility] [address] [place] [address] Hemoglobin (Bld) [Mass/Vol] 11.9 g/dL Low 13.0-18.0 [facility] Comment on above: Performed By: #### H EMDF, BMP3 #### [facility] [address] [place] [address] MCH (RBC) [Entitic mass] 30.5 pg Normal 26.0-34.0 [facility] Comment on above: Performed By: #### H EMDF, BMP3 #### [facility] [address] [place] [address] MCHC 33.7 % Normal 32.0-36.0 [facility] Comment on above: Performed By: #### H EMDF, BMP3 #### [facility] [address] [place] [address] MCV (RBC) [Entitic vol] 90.6 fL Normal 80.0-98.0 [facility] Comment on above: Performed By: #### H EMDF, BMP3 #### [facility] [address] [place] [address] Platelet mean volume (Bld) [Entitic vol] 9.1 fL Normal 7.4-10.4 [facility] Comment on above: Performed By: #### H EMDF, BMP3 #### [facility] [address] [place] [address] Platelets (Bld) [#/Vol] 136 10*3/uL Low 140-440 [facility] Comment on above: Performed By: #### H EMDF, BMP3 #### [facility] [address] [place] [address] RBC (Bld) [#/Vol] 3.91 10*6/uL Low 4.40-5.90 [facility] Comment on above: Performed By: #### H EMDF, BMP3 #### [facility] [address] [place] [address] WBC (Bld) [#/Vol] 7.1 10*3/uL Normal 3.6-10.7 [facility] Comment on above: Performed By: #### H EMDF, BMP3 #### [facility] [address] [place] [address] Magnesiumon 03-21-2021 Magnesium [Mass/Vol] 2.2 mg/dL Normal 1.6-2.3 [facility] Comment on above: Performed By: #### H EMDF, BMP3 #### [facility] [address] [place] [address] Magnesium [Mass/Vol] 2.2 mg/dL 1.6 - 2 .3 mg/dL [facility] Work Phone: Test Performed by [facility], [address] [place], [place] [address] [facility] LAB [facility] Work Phone: POCT Glucoseon 03-21-2021 Glucose [Mass/Vol] 131 mg/dL High 70 - 100 mg/dL [facility] Comment on above: Test performed by gl ucose meter. Results may be 10%-15% lower than serum/plasma values. (CLIA ID [id number]) Interpretation and review of laboratory results Abnormal [facility] Test Performed by [facility], [address] [place], [place] [id number] [place] [address] LAB [facility] Glucose [Mass/Vol] 230 mg/dL High 70 - 100 mg/dL [facility] Comment on above: Test performed by gl ucose meter. Results may be 10%-15% lower than serum/plasma values. (CLIA ID [id number]) Interpretation and review of laboratory results Abnormal [facility] Test Performed by [facility], [address] [place], [place] [address] [place] [address] LAB [facility] Procalcitoninon 03-21-2021 Interpretation See Below Normal [facility] Comment on above: Result Comment: PCT <0.50 = Low risk of severe sepsis and/or septic shock. PCT >2.00 = High risk of severe sepsis and/or septic shock. Performed By: #### H EMDF, BMP3 #### [facility] [address] [place] [address] Basic Metabolic Panelon 03-02 Calcium [Mass/Vol] 8.4 mg/dL Normal 8.4-10.4 [facility] Comment on above: Performed By: #### H EMDF, BMP3 #### [facility] [address] [place] [address] Anion gap [Moles/Vol] 6 mmol/L Normal 3-13 [facility] Comment on above: Performed By: #### H EMDF, BMP3 #### [facility] [address] [place] [address] CO2 [Moles/Vol] 27 mmol/L Normal 22-30 [facility] Comment on above: Performed By: #### H EMDF, BMP3 #### [facility] [address] [place] [address] Glucose [Mass/Vol] 106 mg/dL High 70-100 [facility] Comment on above: Performed By: #### H EMDF, BMP3 #### [facility] [address] [place] [address] Urea nitrogen [Mass/Vol] 14 mg/dL Normal 7-17 [facility] Comment on above: Performed By: #### H EMDF, BMP3 #### [facility] [address] [place] [address] Creatinine [Mass/Vol] 0.51 mg/dL Low 0.52-1.25 [facility] Comment on above: Performed By: #### H EMDF, BMP3 #### [facility] [address] [place] [address] eGFR OTHER > 90.0 Normal >60 [facility] [...] tubular creatinine secretion. Performed By: #### H ALCIRAF BMP3 #### [facility] [address] [place] [address] GFR/1.73 sq M.predicted among blacks MDRD (S/P/Bld) [Vol rate/Area] mL/min/{1.73_m2} Normal >60 [facility] Comment on above: Performed By: #### H EMDF, BMP3 #### [facility] [address] [place] [address] Chloride [Moles/Vol] 104 mmol/L Normal 98-107 [facility] Comment on above: Performed By: #### H ALCIRAF, BMP3 #### [facility] [address] [place] [address] Potassium [Moles/Vol] 3.9 mmol/L Normal 3.5-5.1 [facility] Comment on above: Performed By: #### H ALCIRAF, BMP3 #### [facility] [address] [place] [address] Sodium [Moles/Vol] 137 mmol/L Normal 135-145 [facility] Comment on above: Performed By: #### H ALCIRAF, BMP3 #### [facility] [address] [place] [address] Anion gap [Moles/Vol] 6 mmol/L 3 - 13 mmol/L [facility] Work Phone: Calcium [Mass/Vol] 8.4 mg/dL 8.4 - 10. 4 mg/dL [facility] Work Phone: Chloride [Moles/Vol] 104 mmol/L 98 - 10 7 mmol/L [facility] Work Phone: CO2 [Moles/Vol] 27 mmol/L 22 - 30 mmol/L [facility] Work Phone: Creatinine [Mass/Vol] 0.51 mg/dL Low 0.52 - 1.25 mg/dL [facility] Work Phone: EGFR IF NonAfrican Vietnamese >90.0 >60 mL/min [facility] Work Phone: Comment on above: KDIGO guidelines [...] >60 mL/min [facility] Work Phone: Glucose [Mass/Vol] 106 mg/dL High 70 - 100 mg/dL [facility] Work Phone: [phone] Interpretation and review of laboratory results Abnormal [facility] Work Phone: [phone] Potassium [Moles/Vol] 3.9 mmol/L 3.5 - 5.1 mmol/L [facility] Work Phone: Sodium [Moles/Vol] 137 mmol/L 135 - 145 mmol/L [facility] Work Phone: Urea nitrogen (BldV) [Mass/Vol] 14 mg/dL 7 - 17 mg/dL [facility] Work Phone: Test Performed by [facility], [address] [place], [place] [id number] [place] [address] LAB [facility] Work Phone: C-Reactive Proteinon 11-20-2 021 CRP [Mass/Vol] 228.1 mg/L High 0.0-9.9 [facility] Comment on above: Result Comment: . Performed By: #### H EMDF, BMP3 #### [facility] [employer] [address] [place] [address] CRP [Mass/Vol] 228.1 mg/L High 0.0 - 9.9 mg/L [facility] Work Phone: Comment on above: . Interpretation and review of laboratory results Abnormal [facility] Work Phone: Test Performed by [facility] [employer] [address] [place], [place] [address] [place] [address] LAB [facility] Work Phone: COVID and Resp PCR Panelon 1 05-20-2020 SARS-CoV-2 (COVID-19) RNA SHIRLEY+probe Ql (Unsp spec) COVID and Resp PCR Panel --> Status: F POSITIVE: Respiratory Syncytial Virus DETECTED. _ Expected Result: Not Detected The [employer] Upper Respiratory Pathogens PCR Panel can detect the following targets: SARS-CoV-2, Adenovirus, Coronavirus 229E, Coronavirus HKU1, Coronavirus NL63, Coronavirus OC43, Human Metapneumovirus, Human Rhinovirus/Enteroviru s, Influenza A, Influenza B, Parainfluenza Virus 1, Parainfluenza Virus 2, Parainfluenza Virus 3, Parainfluenza Virus 4, Respiratory Syncytial Virus, Bordetella pertussis, Bordetella parapertussis, Chlamydia pneumoniae, Mycoplasma pneumoniae. Method: Real-time PCR. _ Expected Result: Not Detected The [employer] Upper Respiratory Pathogens PCR Panel can detect the following targets: SARS-CoV-2, Adenovirus, Coronavirus 229E, Coronavirus HKU1, Coronavirus NL63, Coronavirus OC43, Human Metapneumovirus, Human Rhinovirus/Enteroviru s, Influenza A, Influenza B, Parainfluenza Virus 1, Parainfluenza Virus 2, Parainfluenza Virus 3, Parainfluenza Virus 4, Respiratory Syncytial Virus, Bordetella pertussis, Bordetella parapertussis, Chlamydia pneumoniae, Mycoplasma pneumoniae. Method: Real-time PCR. Abnormal [facility] Comment on above: Performed By: #### B FRP2 #### [employer] [facility] [address] [place] [id number] EKG 12 Lead - Chest Painon 1 05-20-2020 [facility] 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 Comment on above: Performed By: #### H EMD, [facility] #### [employer] [address] [place] [address] Lactic Acid, Plasmaon 2020 Lactate [Moles/Vol] 0.7 mmol/L 0.7 - 2. 0 mmol/L [facility] Work Phone: Test Performed by [facility], [address] [place], [place] [address] [facility] LAB [facility] Work Phone: PROCALCITONINon 03-20-2021 Interpretation See Below [facility] Work Phone: Comment on above: PCT <0.50 = Low risk of severe sepsis and/or septic shock. PCT >2.00 = High risk of severe sepsis and/or septic shock. Interpretation and review of laboratory results Abnormal [facility] Work Phone: Test Performed by [facility], [address] [place] [id number] [place] [address] LAB [facility] Work Phone: Procalcitoninon 03-20-2021 Procalcitonin 0.14 ng/mL High 0.00-0.09 [facility] Work Phone: Comment on above: Performed By: #### H MAYKEL BMP3 #### [facility] [address] [place] [address] Interpretation See Below Normal [facility] Comment on above: Result Comment: PCT <0.50 = Low risk of severe sepsis and/or septic shock. PCT >2.00 = High risk of severe sepsis and/or septic shock. Performed By: #### H MAYKEL BMP3 #### [facility] [address] [facility] [place] [address] Troponinon 03-20-2021 Interpretation and review of laboratory results Abnormal [facility] Work Phone: Troponin I.cardiac [Mass/Vol] 0.037 ng/mL High 0.000 - 0.034 ng/mL [facility] Work Phone: Comment on above: . Test Performed by [facility], [facility] [address] [place], [place] [id number] [place] [address] LAB [facility] Work Phone: Troponin Ion 03-20-2021 Troponin I.cardiac [Mass/Vol] 0.037 ng/mL High 0.000-0.034 [facility] Comment on above: Result Comment: . Performed By: #### H MAYKEL BMP3 #### [facility] [address] [place] [address] Arterial Blood Gas Respirato yasmine 03-19-2021 Base Excess 1.2 mmol/L Normal -3.0-3.0 [facility] Comment on above: Performed By: #### B GLU #### [facility] [address] [facility] [place] [address] CO2 [Moles/Vol] 25.6 mmol/L Normal 23.0-27.0 [facility] Comment on above: Performed By: #### B GLU #### [facility] [address] [facility] [place] [address] FIO2 5 Normal [facility] Comment on above: Result Comment: Perf ormed by CLIA ID: [id number] [facility] [place] Performed By: #### B GLU #### [facility] [address] [place] [address] HCO3 (Bld) [Moles/Vol] 24.6 mmol/L Normal 21.0-25.0 [facility] Comment on above: Performed By: #### B GLU #### [facility] [address] [place] [address] Oxygen (Bld) [Partial pressure] 56.7 mm[Hg] Low 80.0-100.0 [facility] Comment on above: Performed By: #### B GLU #### [facility] [address] [place] [address] Oxygen saturation in Blood 91.0 % Low 95.0-100.0 [facility] Comment on above: Performed By: #### B GLU #### [facility] [address] [place] [address] pCO2 33.9 mm[Hg] Low 35.0-45.0 [facility] Comment on above: Performed By: #### B GLU #### [facility] [address] [place] [address] pH 7.468 High 7.350-7.450 [facility] Comment on above: Performed By: #### B GLU #### [facility] [address] [place] [address] Basic Metabolic Panelon 11-1 Anion gap [Moles/Vol] 9 mmol/L Normal 3-13 [facility] Comment on above: Performed By: #### B MP3, TROPN ####[facility] [place] [address] Calcium [Mass/Vol] 8.5 mg/dL Normal 8.4-10.4 [facility] Comment on above: Performed By: #### B MP3, TROPN ####[facility] [place] [address] CO2 [Moles/Vol] 26 mmol/L Normal 22-30 [facility] Comment on above: Performed By: #### Anamika LOPEZ3, TROPN ####[facility] [facility] [place] [address] Creatinine [Mass/Vol] 0.48 mg/dL Low 0.52-1.25 [facility] Comment on above: Performed By: #### Anamika MP3, TROPN ####[place] [address] [facility] [place] [address] eGFR OTHER > 90.0 Normal >60 [facility] [...] tubular creatinine secretion. Performed By: #### Anamika LOPEZ3 TROPN ####[place] [address] [facility] [place] [address] GFR/1.73 sq M.predicted among blacks MDRD (S/P/Bld) [Vol rate/Area] mL/min/{1.73_m2} Normal >60 [facility] Comment on above: Performed By: #### Anamika LOPEZ3, TROPN ####[place] [address] [place] [address] Glucose [Mass/Vol] 132 mg/dL High 70-100 [facility] Comment on above: Performed By: #### Anamika MP3, TROPN ####[address] [facility] [place] [address] Urea nitrogen [Mass/Vol] 16 mg/dL Normal 7-17 [facility] Comment on above: Performed By: #### Anamika MP3, TROPN ####[address] [place] [address] Chloride [Moles/Vol] 102 mmol/L Normal 98-107 [facility] Comment on above: Performed By: #### B JOHN3REBEKA ####[facility] [place] [address] Potassium [Moles/Vol] 4.1 mmol/L Normal 3.5-5.1 [facility] Comment on above: Performed By: #### B MP3, SERGION ####[facility] [place] [address] Sodium [Moles/Vol] 137 mmol/L Normal 135-145 [facility] Comment on above: Performed By: #### B MP3, REBEKA ####[facility] [place] [address] Anion gap [Moles/Vol] 9 mmol/L 3 - 13 mmol/L [facility] Calcium [Mass/Vol] 8.5 mg/dL 8.4 - 10. 4 mg/dL [facility] Chloride [Moles/Vol] 102 mmol/L 98 - 10 7 mmol/L [facility] CO2 [Moles/Vol] 26 mmol/L 22 - 30 mmol/L [facility] Creatinine [Mass/Vol] 0.48 mg/dL Low 0.52 - 1.25 mg/dL [facility] EGFR IF NonAfrican Vietnamese >90.0 >60 mL/min [facility] Comment on above: KDIGO guidelines [...] - 17 mg/dL [facility] Test Performed by [facility], [address], [place], [place] [address] [place] [address] LAB [facility] CBC Auto Differentialon 03-01 Absolute Baso [...] Real-time, RT-PCR This assay was developed by [employer] and distributed under an Emergency Use Authorization (EUA) granted by the FDA for the qualitative detection of nucleic acids from SARS-CoV-2, Influenza A, Influenza B, and Respiratory Syncytial Virus. Provider and patient fact sheets can be found at https://www.fda.gov/m edia/651601/download and https://www.fda.gov/m edia/662016/download. Abnormal [facility] SARS-CoV-2 (COVID-19) RNA SHIRLEY+probe Ql (Unsp spec) Not detected [facility] Test Performed by [facility], [address], [place], [place] [address] [place] [address] LAB [facility] CR Chest Portableon 03-19-20 21 CR Chest Portable [facility]: [id number] Radiology ACCESSION EXAM DATE/TIME PROCEDURE ORDERING PROVIDER [id number] 03/19/2021 17:10 EST CR Chest Portable [id number] -BRADY DESAI CPT code 74841 Reason For Exam (CR Chest Portable) hypoxia [...] Noteon ED Provider Note Emergency Department Encounter [facility] ED Patient: Kathya Hooper : 1955 Date of Evaluation: 03/19/2021 ED Provider: Brady Desai, Chief Complaint Chief Complaint Patient presents with ? Shortness of Breath [place] I wore appropriate PPE for the entirety of this encounter. Does this patient come from an ECF, SNF, Rehab, Mcfp or other Congregate setting: yes (If yes [...] otherwise acutely negative except as in the [place]. Past History Past Medical History: Diagnosis Date [...] TABLET T (more content not included)... Normal [facility] Hemogram w/ Autodiffon 03-19 Abs Baso Cnt 0.1 10*3/uL Normal 0.0-0.2 [facility] Comment on above: Performed By: #### B GLU #### [facility] [address] [place] [address] Abs Neutrophile Cnt 7.2 10*3/uL High 1.8-7.0 [facility] Comment on above: Performed By: #### B GLU #### [facility] [address] [place] [address] Basophils/100 WBC (Bld) 0.6 % Normal 0.0-2.0 S [facility] Comment on above: Performed By: #### B GLU #### [facility] [address] [place] [address] Eosinophils (Bld) [#/Vol] 0.0 10*3/uL Normal 0.0-0.5 [facility] Comment on above: Performed By: #### B GLU #### [facility] [address] [place] [address] Eosinophils/100 WBC (Bld) 0.2 % Low 1.0-6.0 [facility] Comment on above: Performed By: #### B GLU #### [place] [address] [place] [address] Erythrocyte distribution width (RBC) [Ratio] 13.0 % Normal 11.5-14.5 [facility] Comment on above: Performed By: #### B GLU #### [place] [address] [place] [address] Granulocytes/100 WBC (Bld) 79.0 % Normal 40.0-80.0 [facility] Comment on above: Performed By: #### B GLU #### [place] [address] [place] [address] Hematocrit (Bld) [Volume fraction] 38.5 % Low 40.0-52.0 [facility] Comment on above: Performed By: #### B GLU #### [facility] [address] [place] [address] Hemoglobin (Bld) [Mass/Vol] 13.1 g/dL Normal 13.0-18.0 [facility] Comment on above: Performed By: #### B GLU #### [place] [address] [place] [address] Lymphocytes (Bld) [#/Vol] 1.0 10*3/uL Normal 1.0-4.3 [facility] Comment on above: Performed By: #### B GLU #### [place] [address] [place] [address] Lymphocytes/100 WBC (Bld) 10.8 % Low 20.0-40.0 [facility] Comment on above: Performed By: #### B GLU #### [facility] [address] [place] [address] MCH (RBC) [Entitic mass] 30.9 pg Normal 26.0-34.0 [facility] Comment on above: Performed By: #### B GLU #### [facility] [address] [place] [address] MCHC 33.9 % Normal 32.0-36.0 [facility] Comment on above: Performed By: #### B GLU #### [facility] [address] [place] [address] MCV (RBC) [Entitic vol] 91.1 fL Normal 80.0-98.0 [facility] Comment on above: Performed By: #### B GLU #### [facility] [address] [place] [address] Monocytes (Bld) [#/Vol] 0.9 10*3/uL High 0.0-0.8 [facility] Comment on above: Performed By: #### B GLU #### [facility] [address] [place] [address] Monocytes/100 WBC (Bld) 9.4 % Normal 2.0-10.0 [facility] Comment on above: Performed By: #### B GLU #### [facility] [address] [place] [address] Platelet mean volume (Bld) [Entitic vol] 9.9 fL Normal 7.4-10.4 [facility] Comment on above: Performed By: #### B GLU #### [facility] [address] [place] [address] Platelets (Bld) [#/Vol] 163 10*3/uL Normal 140-440 [facility] Comment on above: Performed By: #### B GLU #### [facility] [address] [place] [address] RBC (Bld) [#/Vol] 4.23 10*6/uL Low 4.40-5.90 [facility] Comment on above: Performed By: #### B GLU #### [facility] [address] [place] [address] WBC (Bld) [#/Vol] 9.1 10*3/uL Normal 3.6-10.7 [facility] Comment on above: Performed By: #### B GLU #### [facility] [address] [place] [address] Lactic Acidon 03-19-2021 Lactate [Moles/Vol] 2.3 mmol/L Critically high 0.7-2.0 [facility] Comment on above: Performed By: #### L ACT3 ####[facility] [place] [address] Lactic Acid, Plasmaon 2020 Lactate [Moles/Vol] 2.3 mmol/L Critically high 0.7 - 2.0 mmol/L [facility] No Panel Informationon 03-19 Interpretation and review of laboratory results Abnormal [facility] Test Performed by [place] [address] [place] [address] [facility] LAB [facility] RBC MORPHOLOGYon 03-19-2021 Poikilocytes Slight [facility] RBC (Bld) [#/Vol] ABNORMAL [facility] Tear Drop Cells Slight [facility] RBC Morphologyon 03-19-2021 Ovalocytes Slight Normal [facility] Comment on above: Performed By: #### B GLU #### [facility] [address] [place] [address] Poikilocytosis Slight Normal [facility] Comment on above: Performed By: #### B GLU #### [facility] [address] [place] [address] Polychromasia Slight Normal [facility] Comment on above: Performed By: #### B GLU #### [facility] [address] [place] [address] RBC morphology finding Nom (Bld) ABNORMAL Normal [facility] Comment on above: Performed By: #### B GLU #### [facility] [address] [place] [address] Tear Drop Forms Slight Normal [facility] Comment on above: Performed By: #### B GLU #### [facility] [address] [place] [address] Respiratory Panel, Molecular , with COVID-19 (Restricted: peds pts or suitable admitted adults)on 03-19-2021 Interpretation and review of laboratory results Abnormal [facility] Respiratory Panel Molecular, with COVID POSITIVE: Respiratory Syncytial Virus DETECTED. _ Expected Result: Not Detected The IMT Upper Respiratory Pathogens PCR Panel can detect the following targets: SARS-CoV-2, Adenovirus, Coronavirus 229E, Coronavirus HKU1, Coronavirus NL63, Coronavirus OC43, Human Metapneumovirus, Human Rhinovirus/Enteroviru s, Influenza A, Influenza B, Parainfluenza Virus 1, Parainfluenza Virus 2, Parainfluenza Virus 3, Parainfluenza Virus 4, Respiratory Syncytial Virus, Bordetella pertussis, Bordetella parapertussis, Chlamydia pneumoniae, Mycoplasma pneumoniae. Method: Real-time PCR. Abnormal [facility] Test Performed by [id number] [place] [address] LAB [facility] SARS-CoV-2, Flu A/B and RSVo n 03-19-2021 SARS-CoV-2 (COVID-19) RNA SHIRLEY+probe Ql (Unsp spec) SARS-CoV-2 --> Status: F Not Detected. Flu A PCR --> Status: F Not Detected. Flu B PCR --> Status: F Not Detected. RSV PCR --> Status: F DETECTED Expected Result: Not Detected _ Method: Real-time, RT-PCR This assay was developed by [employer] and distributed under an Emergency Use Authorization (EUA) granted by the FDA for the qualitative detection of nucleic acids from SARS-CoV-2, Influenza A, Influenza B, and Respiratory Syncytial Virus. Provider and patient fact sheets can be found at https://www.fda.gov/m edia/792726/download and https://www.fda.gov/m edia/421511/download. Expected Result: Not Detected _ Method: Real-time, RT-PCR This assay was developed by [employer] and distributed under an Emergency Use Authorization (EUA) granted by the FDA for the qualitative detection of nucleic acids from SARS-CoV-2, Influenza A, Influenza B, and Respiratory Syncytial Virus. Provider and patient fact sheets can be found at https://www.fda.gov/m edia/229503/download and https://www.fda.gov/m edia/740743/download. Abnormal [facility] Comment on above: Performed By: #### C VFLR #### [facility] [address] [place] [address] , [address] Troponinon 03-19-2021 Troponin I.cardiac [Mass/Vol] 0.017 ng/mL 0.000 - 0.034 ng/mL [facility] Comment on above: . Test Performed by [facility], [address], [place], [place] [address] [facility] LAB [facility] Troponin Ion 03-19-2021 Troponin I.cardiac [Mass/Vol] 0.017 ng/mL Normal 0.000-0.034 [facility] Comment on above: Result Comment: . Performed By: #### B MP3, TROPN ####[facility] [place] [address] XR CHEST PORTABLEon 03-19-20 Patient Name: KATHYA HOOPER Diagnostic Radiology ACCESSION EXAM DATE/TIME PROCEDURE ORDERING PROVIDER [id number] 03/19/2021 17:10 EST CR Chest Portable [id number] -BRADY DESAI CPT code 54858 Reason For Exam (CR Chest Portable) hypoxia [...] Radiology ACCESSION EXAM DATE/TIME PROCEDURE ORDERING PROVIDER [id number] 03/19/2021 17:10 EST CR Chest Portable [id number] -BRADY DESAI CPT code 75914 Reason For Exam (CR Chest Portable) hypoxia [...] J Transcribed Date and Time: 03/19/2021 5:22 [facility] Work Phone: Radiology Study observation (narrative) [facility] Work Phone: XR CHEST PORTABLEOrdered By: Keshawn Simpson on 03-19-2021 [facility] Work Phone: Basic Metabolic Panelon 03-01 Calcium [Mass/Vol] 8.4 mg/dL Normal 8.4-10.4 [facility] Comment on above: Performed By: #### H MAYKEL BMP3 #### [facility] [address] [place] [address] Glucose [Mass/Vol] 110 mg/dL High 70-100 [facility] Comment on above: Performed By: #### H MAYKEL BMP3 #### [facility] [address] [place] [address] Anion gap [Moles/Vol] 7 mmol/L Normal 3-13 [facility] Comment on above: Performed By: #### H MAYKEL BMP3 #### [facility] [address] [place] [address] CO2 [Moles/Vol] 26 mmol/L Normal 22-30 [facility] Comment on above: Performed By: #### H MAYKEL BMP3 #### [facility] [address] [place] [address] Creatinine [Mass/Vol] 0.54 mg/dL Normal 0.52-1.25 [facility] Comment on above: Performed By: #### H MAYKEL BMP3 #### [facility] [address] [place] [address] eGFR OTHER > 90.0 Normal >60 [facility] [address] [place] [address] GFR/1.73 sq M.predicted among blacks MDRD (S/P/Bld) [Vol rate/Area] mL/min/{1.73_m2} Normal >60 [facility] Comment on above: Performed By: #### Kerri BRAR BMP3 #### [facility] [address] [place] [address] Urea nitrogen [Mass/Vol] 18 mg/dL High 7-17 [facility] Comment on above: Performed By: #### H MAYKEL BMP3 #### [facility] [address] [place] [address] Potassium [Moles/Vol] 3.9 mmol/L Normal 3.5-5.1 [facility] Comment on above: Performed By: #### H MAYKEL BMP3 #### [facility] [address] [place] [address] Chloride [Moles/Vol] 104 mmol/L Normal 98-107 [facility] Comment on above: Performed By: #### H KORIN BRAR3 #### [facility] [address] [place] [address] Sodium [Moles/Vol] 137 mmol/L Normal 135-145 [facility] Comment on above: Performed By: #### H KORIN BRAR3 #### [facility] [address] [place] [address] Anion gap [Moles/Vol] 7 mmol/L 3 - 13 mmol/L [facility] Calcium [Mass/Vol] 8.4 mg/dL 8.4 - 10. 4 mg/dL [facility] Chloride [Moles/Vol] 104 mmol/L 98 - 10 7 mmol/L [facility] CO2 [Moles/Vol] 26 mmol/L 22 - 30 mmol/L [facility] Creatinine [Mass/Vol] 0.54 mg/dL 0.52 - 1.25 mg/dL [facility] EGFR IF NonAfrican Vietnamese >90.0 >60 mL/min [facility] Comment on above: KDIGO guidelines pro [...] 18 mg/dL High 7 - 17 mg/dL [facility] Brain Natriuretic Peptideon 03-18-2021 Interpretation and review of laboratory results Abnormal [facility] Natriuretic peptide B (Bld) [Mass/Vol] 710 pg/mL High 0 - 125 pg/mL [facility] Test Performed by [facility], [address], [place], [place] [address] [place] [address] LAB [facility] CBC Auto Differentialon 03-01 Absolute Baso [...] (Stl) 13.6 g/dL 13.0 - 18.0 g/dL [facility] Interpretation and review of laboratory results [...] 10*3/uL [facility] Test Performed by [facility], [address] LAB [facility] COVID-19, Flu A/B, and RSV C ombo 03-18-2021 Influenza A by PCR Not detected [facility] Influenza B by PCR Not detected [facility] Interpretation and review of laboratory results Abnormal [facility] RSV PCR DETECTED Expected Result: Not Detected _ Method: Real-time, RT-PCR This assay was developed by [employer] and distributed under an Emergency Use Authorization (EUA) granted by the FDA for the qualitative detection of nucleic acids from SARS-CoV-2, Influenza A, Influenza B, and Respiratory Syncytial Virus. Provider and patient fact sheets can be found at https://www.fda.gov/m edia/142815/download and https://www.fda.gov/m edia/339738/download. Abnormal [facility] SARS-CoV-2 (COVID-19) RNA SHIRLEY+probe Ql (Unsp spec) Not detected [facility] Test Performed by [facility], [address] LAB [facility] CR Chest Portableon 03-18-20 21 CR Chest Portable Patient Name: KATHYA HOOPER Diagnostic Radiology ACCESSION EXAM DATE/TIME PROCEDURE ORDERING PROVIDER [id number] 03/18/2021 15:30 EST CR Chest Portable [id number] -BOO CASTRO CPT code 84190 Reason For Exam (CR Chest Portable) sob, ams Report EXAMINATION: Portable chest INDICATION: sob, ams FINDINGS: There is no focal consolidation, sizable pleural effusion or pneumothorax. The cardiac silhouette and mediastinum are within normal limits. Small osteophytes of the spine are present at multiple levels. IMPRESSION: No radiographic evidence of acute cardiopulmonary process. Report Dictated on Final Dictating Physician: MD UMNOZ KRIKOR Signed Date and Time: 03/18/2021 3:34 pm Signed by: MD MUNOZ KRIKOR Transcribed Date and Time: 03/18/2021 3:35 [facility] CTA Chest W WO (PE study)on 03-18-2021 Patient Name: KATHYA HOOPER Computed Tomography ACCESSION EXAM DATE/TIME PROCEDURE ORDERING PROVIDER [id number] 03/18/2021 16:27 EST CTA Chest w/ + w/o [id number] -SEA GIRT, Alyson HADDAD CPT code 46446 Q9967 Reason For Exam (CTA Chest w/ [...] MALAY Transcribed Date and Time: 03/18/2021 4:36 [facility] Malcolm Michaels MD - 03/18/2021 Patient Name: KATHYA HOOPER Computed Tomography ACCESSION EXAM DATE/TIME PROCEDURE ORDERING PROVIDER [id number] 03/18/2021 16:27 EST CTA Chest w/ + w/o [id number] -CASTRO, Contrast BOO CPT code 55865 Q9967 Reason For Exam (CTA Chest w/ [...] + w/o Contrast [facility]: [id number] Tomography ACCESSION EXAM DATE/TIME PROCEDURE ORDERING PROVIDER [id number] 03/18/2021 16:27 EST CTA Chest w/ + w/o [id number] -CASTRO Contrast BOO CPT code 34327 Q9967 Reason For Exam (CTA Chest w/ [...] Tomography ACCESSION EXAM DATE/TIME PROCEDURE ORDERING PROVIDER [id number] 03/18/2021 16:26 EST CTA Head/Neck w/ + w/o [id number] -alyson CASTRO CPT code 07129 53774 Q9967 Reason For Exam (CTA Head/Neck w/ [...] Date and Time: 03/18/2021 4:52 [facility] Greyson Rai MD - 03/18/2021 [id number] Computed Tomography ACCESSION EXAM DATE/TIME PROCEDURE ORDERING PROVIDER [id number] 03/18/2021 16:26 EST CTA Head/Neck w/ + w/o 480499 -alyson CASTRO CPT code 36036 15485 Q9967 Reason For Exam (CTA Head/Neck w/ [...] Tomography ACCESSION EXAM DATE/TIME PROCEDURE ORDERING PROVIDER [id number] 03/18/2021 16:26 EST CTA Head/Neck w/ + w/o 341954 -alyson CASTRO CPT code 58412 91630 Q9967 Reason For Exam (CTA Head/Neck w/ [...] ED Provider Noteon ED Provider Note [facility] [place] [facility] ENCOUNTER Pt Name: Kathya [...] patient come from an ECF, SNF, Rehab, Mcfp or other Congregate setting: no (If yes to above patient needs a Covid-19 test) HPI Kathya Hooper is a 66 y.o. 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 [facility] w/ Autodiffon 11-18 -2021 Abs Baso Cnt 0.0 10*3/uL Normal 0.0-0.2 [facility] Comment on above: Performed By: #### H EMDF, BMP3 #### [facility] [address] [place] [address] Abs Neutrophile Cnt 7.3 10*3/uL High 1.8-7.0 [facility] Comment on above: Performed By: #### H EMDF, BMP3 #### [facility] [address] [place] [address] Basophils/100 WBC (Bld) 0.5 % Normal 0.0-2.0 S [facility] Comment on above: Performed By: #### H EMDMauirce BMP3 #### [facility] [address] [place] [address] Eosinophils (Bld) [#/Vol] 0.0 10*3/uL Normal 0.0-0.5 [facility] Comment on above: Performed By: #### H EMDF BMP3 #### [facility] [address] [place] [address] Eosinophils/100 WBC (Bld) 0.1 % Low 1.0-6.0 [facility] Comment on above: Performed By: #### H EMDMaurice, BMP3 #### [facility] [address] [place] [address] Erythrocyte distribution width (RBC) [Ratio] 12.9 % Normal 11.5-14.5 [facility] Comment on above: Performed By: #### H EMDF, BMP3 #### [facility] [address] [place] [address] Granulocytes/100 WBC (Bld) 82.8 % High 40.0-80.0 [facility] Comment on above: Performed By: #### H EMDF, BMP3 #### [facility] [address] [place] [address] Hematocrit (Bld) [Volume fraction] 38.3 % Low 40.0-52.0 [facility] Comment on above: Performed By: #### H EMDF, BMP3 #### [facility] [address] [place] [address] Hemoglobin (Bld) [Mass/Vol] 13.6 g/dL Normal 13.0-18.0 [facility] Comment on above: Performed By: #### H EMDMaurice, BMP3 #### [facility] [address] [place] [address] Lymphocytes (Bld) [#/Vol] 0.7 10*3/uL Low 1.0-4.3 [facility] Comment on above: Performed By: #### H EMDMaurice, BMP3 #### [facility] [address] [place] [address] Lymphocytes/100 WBC (Bld) 7.6 % Low 20.0-40.0 [facility] Comment on above: Performed By: #### H EMDMaurice BMP3 #### [facility] [address] [place] [address] MCH (RBC) [Entitic mass] 32.0 pg Normal 26.0-34.0 [facility] Comment on above: Performed By: #### H EMDF, BMP3 #### [facility] [address] [place] [address] MCHC 35.4 % Normal 32.0-36.0 [facility] Comment on above: Performed By: #### H EMDF, BMP3 #### [facility] [address] [place] [address] MCV (RBC) [Entitic vol] 90.2 fL Normal 80.0-98.0 [facility] Comment on above: Performed By: #### H EMDF, BMP3 #### [facility] [address] [place] [address] Monocytes (Bld) [#/Vol] 0.8 10*3/uL Normal 0.0-0.8 [facility] Comment on above: Performed By: #### H EMDF, BMP3 #### [facility] [address] [place] [address] Monocytes/100 WBC (Bld) 9.0 % Normal 2.0-10.0 [facility] Comment on above: Performed By: #### H EMDF, BMP3 #### [facility] [address] [place] [address] Platelet mean volume (Bld) [Entitic vol] 9.8 fL Normal 7.4-10.4 [facility] Comment on above: Performed By: #### H MAYKEL BMP3 #### [facility] [address] [place] [address] Platelets (Bld) [#/Vol] 129 10*3/uL Low 140-440 [facility] Comment on above: Performed By: #### H MAYKEL BMP3 #### [facility] [address] [place] [address] RBC (Bld) [#/Vol] 4.24 10*6/uL Low 4.40-5.90 [facility] Comment on above: Performed By: #### H MAYKEL BMP3 #### [facility] [address] [place] [address] WBC (Bld) [#/Vol] 8.8 10*3/uL Normal 3.6-10.7 [facility] Comment on above: Performed By: #### H MAYKEL BMP3 #### [facility] [address] [place] [address] MAGNESIUMon 03-18-2021 Magnesium [Mass/Vol] 2.0 mg/dL 1.6 - 2 .3 mg/dL [facility] Magnesiumon 03-18-2021 Magnesium [Mass/Vol] 2.0 mg/dL Normal 1.6-2.3 [facility] Comment on above: Performed By: #### H MAYKEL BMP3 #### [facility] [address] [place] [address] NT pro BNPon 03-18-2021 Natriuretic peptide B (Bld) [Mass/Vol] 710 pg/mL High 0-125 [facility] Comment on above: Performed By: #### H MAYKEL BMP3 #### [facility] [address] [place] [address] No Panel Informationon 03-18 Test Performed by [facility], [address] [place] [address] [facility] LAB [facility] PROTIME/INR & PTTon 11-18-20 21 aPTT Coag (Bld) [Time] 30.7 s High 20.0 - 30.5 s [facility] Comment on above: NOTE: The therapeuti c time for Heparin anticoagulation, based on Xa activity inhibition, is an APTT of 46-80 seconds. INR Coag (Bld) [Relative time] 1.1 {INR} [facility] Comment on above: Recommended Anticoag [...] Interpretation and review of laboratory results Abnormal [facility] PT Coag (PPP) [Time] 11.4 s 9.0 - 12.0 s [facility] Comment on above: . Test Performed by [facility], [address] [place] [address] LAB [facility] Protime AND APTTon aPTT Coag (Bld) [Time] 30.7 s High 20.0-30.5 [facility] Comment on above: Result Comment: NOTE : The therapeutic time for Heparin anticoagulation, based on Xa activity inhibition, is an APTT of 46-80 seconds. Performed By: #### H MAYKEL BMP3 #### [place] [address] INR 1.1 Normal 0.9-1.1 [facility] Comment [...] H MAYKEL, BMP3 #### [facility] [address] [place] [address] PT Coag (PPP) [Time] 11.4 s Normal 9.0-12.0 [facility] Comment on above: Result Comment: . Performed By: #### H EMDF, BMP3 #### [facility] [employer] [address] [place] [address] SARS-CoV-2, Flu A/B and RSVo n 03-18-2021 SARS-CoV-2 (COVID-19) RNA SHIRLEY+probe Ql (Unsp spec) SARS-CoV-2 --> Status: F Not Detected. Flu A PCR --> Status: F Not Detected. Flu B PCR --> Status: F Not Detected. RSV PCR --> Status: F DETECTED Expected Result: Not Detected _ Method: Real-time, RT-PCR This assay was developed by [employer] and distributed under an Emergency Use Authorization (EUA) granted by the FDA for the qualitative detection of nucleic acids from SARS-CoV-2, Influenza A, Influenza B, and Respiratory Syncytial Virus. Provider and patient fact sheets can be found at https://www.fda.gov/m edia/672413/download and https://www.fda.gov/m edia/389358/download. Expected Result: Not Detected _ Method: Real-time, RT-PCR This assay was developed by [employer] and distributed under an Emergency Use Authorization (EUA) granted by the FDA for the qualitative detection of nucleic acids from SARS-CoV-2, Influenza A, Influenza B, and Respiratory Syncytial Virus. Provider and patient fact sheets can be found at https://www.fda.gov/m edia/245570/download and https://www.fda.gov/m edia/479102/download. Abnormal [facility] [employer] Comment on above: Performed By: #### C VFLR #### [facility] dough [facility] [address] [place] [address] , [address] TS GELon 03-18-2021 TS GEL ABO Group: O Rh, Gel: POS Antibody Screen Gel: NEG Normal [facility] [employer] Comment on above: Performed By: #### T SGL #### [facility] TYPE AND SCREENon 03-18-2021 ABO Grouping O [facility] Rh Type Positive [facility] Test Performed by [facility], [address], [place], [place] [address] [facility] XR CHEST PORTABLEon 03-18-20 Patient Name: KATHYA HOOPER Diagnostic Radiology ACCESSION EXAM DATE/TIME PROCEDURE ORDERING PROVIDER [id number] 03/18/2021 15:30 EST CR Chest Portable [id number] -[facility] CPT code 66059 Reason For Exam (CR Chest Portable) sob, [...] KRIKOR Transcribed Date and Time: 03/18/2021 3:35 [facility] Alejandra Munoz MD - 03/18/2021 Patient Name: KATHYA HOOPER Diagnostic Radiology ACCESSION EXAM DATE/TIME PROCEDURE ORDERING PROVIDER [id number] 03/18/2021 15:30 EST CR Chest Portable [id number] -[facility] CPT code 00405 Reason For Exam (CR Chest Portable) sob, [...] Time: 03/18/2021 3:34 pm Signed by: MD ROSMERY, ALEJANDRA Transcribed Date and Time: 03/18/2021 3:35 [facility] Work Phone: Radiology Study observation (narrative) [facility] Work Phone: XR CHEST PORTABLEOrdered By: Alejandra Munoz on 03-18-2021 [facility] Work Phone: ED Provider Noteon ED Provider Note - Attestation signed by Edwin Montejo MD at 10/31/2020 7:09 AM Emergency Medicine Attending Note This patient was seen and treated independently by the special population paraprofessional. I was present and available in the emergency department when this patient was treated. Vero Montejo MD Dulce [facility] eMERGENCY dEPARTMENT eNCOUnter Pt Name: Kathya [...] August of this year as well as February of this year for G-tube replacements. He [...] Diagnosis Date ? TREVER (acute kidney injury) ([facility]) ? Alcohol abuse 07/08/2018 ? Anxiety ? Depression ? Fall 06/2018 ? Schizophrenia ([facility]) SURGICALHISTORY Past Surgical History: Procedure [...] Fluoroscopy ACCESSION EXAM DATE/TIME PROCEDURE ORDERING PROVIDER [id number] 10/30/2020 15:07 EDT RF Intro Long GI Tube w/ KRISTA TOLEDO, HELEN Rojas CPT code 78405 Reason For Exam (RF Intro Long GI [...] Phone: [facility], [facility] Incoming Radiology Results From [facility] - 10/30/2020 4:07 PM EDT Patient Name: KATHYA HOOPER Fluoroscopy ACCESSION EXAM DATE/TIME PROCEDURE ORDERING PROVIDER [id number] 10/30/2020 15:07 EDT RF Intro Long GI Tube w/ KRISTA TOLEDO AMY L Fluoro CPT code 95726 Reason For Exam (RF Intro Long GI [...] J Transcribed Date and Time: 10/30/2020 4:06 [facility] Work Phone: [facility] Work Phone: RF Intro Long GI Tube w/ Flu oroon 10-30-2020 RF Intro Long GI Tube w/ Fluoro Patient Name: KATHYA HOOPER Fluoroscopy ACCESSION EXAM DATE/TIME PROCEDURE ORDERING PROVIDER [id number] 10/30/2020 15:07 EDT RF Intro Long GI Tube w/ KRISTA TOLEDO AMY L Fluoro CPT code 23418 Reason For Exam (RF Intro Long GI [...] Transcribed Date and Time: 10/30/2020 4:06 Normal [facility] ED Provider Noteon ED [...] Fluoroscopy ACCESSION EXAM DATE/TIME PROCEDURE ORDERING PROVIDER [id number] 09/22/2020 04:09 EDT RF Intro Long GI Tube w/ [id number] -ELIZABETH MOURA CPT code 11171 Reason For Exam (RF Intro Long GI [...] JEFFREY Transcribed Date and Time: 09/22/2020 5:11 [facility] Work Phone: [facility], [facility] Incoming Radiology Results From [facility] - 09/22/2020 5:11 AM EDT Patient Name: KATHYA HOOPER Fluoroscopy ACCESSION EXAM DATE/TIME PROCEDURE ORDERING PROVIDER [id number] 09/22/2020 04:09 EDT RF Intro Long GI Tube w/ ELIZABETH BARKER Bob CPT code 43311 Reason For Exam (RF Intro Long GI [...] Fluoroscopy ACCESSION EXAM DATE/TIME PROCEDURE ORDERING PROVIDER [id number] 09/22/2020 04:09 EDT RF Intro Long GI Tube w/ ZakHayley JoesphZENY ELIZABETH Bob CPT code 27952 Reason For Exam (RF Intro Long GI [...] Transcribed Date and Time: 09/22/2020 5:11 Normal [facility] ED Provider Noteon ED Provider Note [facility] EMERGENCY DEPARTMENT ENCOUNTER Pt Name: Kathya [...] otherwise acutely negative except as in the [place]. PAST MEDICAL HISTORY Past Medical History: Diagnosis [...] (AQUAPHOR) ointment Apply topically as needed. Balsam [place] [employer] (VENELEX) OINT ointment Apply topically every [...] file Gets together: Not on file Attends church service: Not on file Active member of [...] for level (more content not included)... Normal [facility] Patient Name: KATHYA HOOPER Fluoroscopy ACCESSION EXAM DATE/TIME PROCEDURE ORDERING PROVIDER [id number] 06/26/2020 20:20 EST RF Intro Long GI Tube w/ [id number] -ABELARDO RIOS CPT code 38406 Reason For Exam (RF Intro Long GI [...] B Transcribed Date and Time: 06/26/2020 9:16 [facility] Work Phone: [facility] In[facility] Rad[facility] Results From [facility] - 06/26/2020 9:16 PM EST Patient Name: KATHYA HOOPER Fluoroscopy ACCESSION EXAM DATE/TIME PROCEDURE ORDERING PROVIDER [id number] 06/26/2020 20:20 EST RF Intro Long GI Tube w/ [id number] -ABEALRDO RIOS CPT code 01622 Reason For Exam (RF Intro Long GI [...] B Transcribed Date and Time: 06/26/2020 9:16 [facility] Work Phone: Feeding Tubeon 06-26-2020 Abelardo [...] of procedure: Tolerated well, no immediate complications [facility] Work Phone: RF Intro Long GI Tube w/ Flu oroon 06-26-2020 RF Intro Long GI Tube w/ Fluoro [facility]: [id number] Fluoroscopy ACCESSION EXAM DATE/TIME PROCEDURE ORDERING PROVIDER [id number] 06/26/2020 20:20 EST RF Intro Long GI Tube w/ [id number] -ABELARDO RIOS CPT code 09061 Reason For Exam (RF Intro Long GI [...] Clinical Summary: HMSPatient IDon 05-22-2019 WOP [facility] Work Phone: Office Visit: New - 1st visi t with practice, Rm: 2on 05-22-2019 NEGATED: Highlighted rowCT scan history of the right lower extremity on 05/16/2019 at [facility] Work Phone: NEGATED: Highlighted rowTobacco smoking status NHIS current someday smoker [facility] Work Phone: NEGATED: Highlighted rowxray history of the pelvis with hip on 05/11/2019 at [facility] , [facility] Work Phone: CT LOWER EXTREMITY RIGHT WO CONTRASTOrdered By: Elizabeth Moura on 05-16-2019 Patient Name: KATHYA HOOPER ---CT--- Exam Date/Time 05/16/2019 21:10:[address] Low Ext w/o Contrast Right Ordering Physician ELIZABETH BARKER Accession Number [id number] CPT4 Codes 59244 () Reason For Exam right hip pain, [...] Time: 05/16/2019 9:24 [facility] Work Phone: Jaquan, [facility] Incoming Radiology Results From [facility] - 05/16/2019 9:24 PM EST Patient Name: KAHTYA HOOPER ---CT--- Exam Date/Time 05/16/2019 21:10:[address] Low Ext w/o Contrast Right Ordering Physician ELIZABETH BARKER Accession Number [id number] CPT4 Codes 58952 () Reason For Exam right hip pain, [...] RISA Transcribed Date and Time: 05/16/2019 9:24 [facility] Work Phone: Differential,Body Fluidson 0 09-27-2018 Other Cells 46 % Normal [facility] Comment on above: Result Comment: Bloo dy specimen with reactive mesothelial cells and chronic inflammation with occasional hemophagocytosis. trials manager Performed By: #### H EMDF, PT, BMP3M, PHOS3, MG3, CK3 #### [facility] dough [facility] [address] [place], [place] #### VD25H #### [facility] dough [facility] [address] [place] [address] CULTURE AND STAIN - FLUIDon 09-25-2018 CULTURE [...] EMDF, PT, BMP3M, PHOS3, MG3, CK3 #### [facility] dough [facility] [address] [place] [address] #### VD25H #### [facility] [address] [place] [address] Cell Count,Body Fluidon 05- Nucleated Cells 2391 {cells}/uL Normal [facility] Comment on above: Performed By: #### H EMDF, PT, BMP3M, PHOS3, MG3, CK3 #### [place] [address] [place], [place] #### VD25H #### [facility] [address] [place] [place] [address] RBC [place] [address] {RBC}/uL Normal [facility] Comment on above: Performed By: #### H EMDF, PT, BMP3M, PHOS3, MG3, CK3 #### [place] [address] [place], [place] #### VD25H #### [facility] [address] [place] [address] Fluid Type Thoracentesis Normal [facility] Comment on above: Performed By: #### H EMDF, PT, BMP3M, PHOS3, MG3, CK3 #### [address] #### VD25H #### [place] [address] [place] [place] [address] Differential,Body Fluidson 0 09-25-2018 Lymphocytes/100 WBC (Bld) 28 % Normal [facility] Comment on above: Performed By: #### H EMDF, PT, BMP3M, PHOS3, MG3, CK3 #### [address] #### VD25H #### [place] [address] [place] [address] Monocytes/100 WBC (Bld) 1 % Normal [facility] Comment on above: Performed By: #### H EMDF, PT, BMP3M, PHOS3, MG3, CK3 #### [address] #### VD25H #### [facility] [address] [place] [address] Neutrophils/100 WBC (Bld) 25 % Normal [facility] Comment on above: Performed By: #### H EMDF, PT, BMP3M, PHOS3, MG3, CK3 #### [place] [address] [place] [address] #### VD25H #### [facility] [address] [place] [address] Cells Counted for Diff 100 Normal [facility] Comment on above: Performed By: #### H EMDF, PT, BMP3M, PHOS3, MG3, CK3 #### [facility] [address] [place], [place] #### VD25H #### [facility] [address] [place] [address] LDH, Body Fluidon 09-25-2018 LDH, Body Fluid 174 U/L Normal No Range [facility] Comment on above: Performed By: #### H EMDF, PT, BMP3M, PHOS3, MG3, CK3 #### [facility] [address] [place], [place] #### VD25H #### [facility] [address] [place] [address] Protein, Total Body Fluidon 09-25-2018 Protein,Total-Body Fld 3.4 g/dL Normal No Range [facility] Comment on above: Performed By: #### H EMDF, PT, BMP3M, PHOS3, MG3, CK3 #### [facility] [address] [place], [place] #### VD25H #### [facility] [address] [place] [address] US Thora-Aspir Pleura w/ Evelin geon 09-25-2018 US Thora-Aspir Pleura w/ Image Patient Name: KATHYA HOOPER Ultrasound Exam Date/Time 09/25/2018 13:23:41 EDT Exam US Thora-Aspir Pleura w/ Image Ordering Physician SALO DAVIS Accession Number [id number] CPT4 Codes 22444 () Reason For Exam pleural effusion Report [...] Transcribed Date and Time: 09/25/2018 3:07 Normal [facility] CULTURE MYCOBACTERIAon 09-03 CULTURE MYCOBACTERIA CULTURE MYCOBACTERI A --> Status: F No acid-fast bacilli isolated after 6 weeks incubation. [facility] Comment on above: Performed By: #### H EMDF, PT, BMP3M, PHOS3, MG3, CK3 #### [facility] [address] [place], [place] #### VD25H #### [facility] [address] [place] [address] CULTURE URINEon 08-23-2018 CULTURE URINE CULTURE URINE --> Status: F No growth (<1,000 CFU/ml). Normal [facility] Comment on above: Order Comment: Speci men Source Comment:Urine, clean catch Performed By: #### H EMDF, PT, BMP3M, PHOS3, MG3, CK3 #### [facility] [address] [place], [place] #### VD25H #### [facility] [address] [place] [address] CR Chest Portableon 08-23-19 19 CR Chest Portable Patient Name: KATHYA HOOPER Diagnostic Radiology Exam Date/Time 08/22/2018 07:07:07 EDT Exam CR Chest Portable Ordering Physician [id number] OLEA Accession Number [id number] CPT4 Codes 16574 () Reason For Exam dyspnea Report Portable [...] Transcribed Date and Time: 08/22/2018 7:31 Normal [facility] Glucose,Bedsideon 08-22-2018 Glucose mass conc 127 mg/dL High 70-100 [facility] [employer] [facility] Comment on above: Result Comment: Test performed by glucose meter. Results may be 10%-15% lower than serum/plasma values. (CLIA ID [id number]) Performed By: #### H EMDF, PT, BMP3M, PHOS3, MG3, CK3 #### [facility] [employer] [address] [place] [address] #### VD25H #### [facility] dough [facility] [address] [place] [address] Urinalysis,Macroon 9 Appearance Nom (U) clear Normal Clear [facility] Comment on above: Performed By: #### H EMDF, PT, BMP3M, PHOS3, MG3, CK3 #### [facility] [address] [place], [place] #### VD25H #### [facility] [address] [place] [address] Bilirubin,Ur Negative Normal Negative [facility] Comment on above: Performed By: #### H EMDF, PT, BMP3M, PHOS3, MG3, CK3 #### [place] [address] [place], [place] #### VD25H #### [facility] [address] [place] [address] Color Nom (U) dk.yel Normal Lt. Yellow [facility] Comment on above: Performed By: #### H EMDF, PT, BMP3M, PHOS3, MG3, CK3 #### [place] [address] [place], [place] #### VD25H #### [facility] [address] [place] [address] Glucose Ql (U) NORM Normal Negative [facility] Comment on above: Performed By: #### H EMDF, PT, BMP3M, PHOS3, MG3, CK3 #### [place] [address] [place], [place] #### VD25H #### [facility] [address] [place] [address] Ketone,Urine Negative Normal Negative [facility] Comment on above: Performed By: #### H EMDF, PT, BMP3M, PHOS3, MG3, CK3 #### [place] [address] [place], [place] #### VD25H #### [facility] [address] [place] [address] Nitrite Ql (U) Negative Normal Negative [facility] Comment on above: Performed By: #### H EMDF, PT, BMP3M, PHOS3, MG3, CK3 #### [place] [address] [place], [place] #### VD25H #### [facility] [address] [place] [address] Occult Blood,Ur Negative Normal Negative [facility] Comment on above: Performed By: #### H EMDF, PT, BMP3M, PHOS3, MG3, CK3 #### [place] [address] [place], [place] #### VD25H #### [facility] [address] [place] [address] pH (U) 8.0 Normal 5.0-8.0 [facility] Comment on above: Performed By: #### H EMDF, PT, BMP3M, PHOS3, MG3, CK3 #### [address] #### VD25H #### [facility] [address] [place] [address] Protein mass conc (U) Negative Normal Negative [facility] Comment on above: Performed By: #### H EMDF, PT, BMP3M, PHOS3, MG3, CK3 #### [place] [address] [place], [place] #### VD25H #### [facility] [address] [place] [address] Specific Drake,Urine 1.015 Normal 1.005-1.030 [facility] Comment on above: Performed By: #### H EMDF, PT, BMP3M, PHOS3, MG3, CK3 #### [address] #### VD25H #### [facility] [address] [place] [address] Urobilinogen Qn (U) 1 mg/dL Normal 0-1 [facility] Comment on above: Performed By: #### H EMDF, PT, BMP3M, PHOS3, MG3, CK3 #### [place] [address] [place], [place] #### VD25H #### [facility] [address] [place] [address] WBC #/vol (Bld) Negative Normal Negative [facility] Comment on above: Performed By: #### H EMDF, PT, BMP3M, PHOS3, MG3, CK3 #### [place] [address] [place], [place] #### VD25H #### [facility] [address] [place] [address] Basic Metabolic Panelon 04-2 Calcium mass conc 7.8 mg/dL Low 8.4-10.4 [facility] Comment on above: Performed By: #### H EMDF, PT, BMP3M, PHOS3, MG3, CK3 #### [place] [address] [place], [place] #### VD25H #### [facility] [address] [place] [address] Glucose mass conc 102 mg/dL High 70-100 [facility] Comment on above: Performed By: #### H EMDF, PT, BMP3M, PHOS3, MG3, CK3 #### [place] [address] [place], [place] #### VD25H #### [facility] [address] [place] [address] Anion gap molar conc 0 Normal [facility] Comment on above: Performed By: #### H EMDF, PT, BMP3M, PHOS3, MG3, CK3 #### [place] [address] [place], [place] #### VD25H #### [facility] [address] [place] [address] CO2 molar conc 37 mmol/L High 22-30 [facility] Comment on above: Performed By: #### H EMDF, PT, BMP3M, PHOS3, MG3, CK3 #### [place] [address] [place], [place] #### VD25H #### [facility] [address] [place] [address] Creatinine mass conc 0.46 mg/dL Low 0.52-1.25 [facility] Comment on above: Performed By: #### H EMDF, PT, BMP3M, PHOS3, MG3, CK3 #### [place] [address] [place], [place] #### VD25H #### [facility] [address] [place] [facility] [place] [address] GFR/1.73 sq M predicted among blacks MDRD vol rate/area (S/P/Bld) mL/min/{1.73_m2} Normal >60 [facility] Comment on above: Performed By: #### H EMDF, PT, BMP3M, PHOS3, MG3, CK3 #### [address] #### VD25H #### [facility] [address] [place] [address] GFR/1.73 sq M predicted among non-blacks MDRD vol rate/area (S/P/Bld) mL/min/{1.73_m2} Normal >60 [facility] Comment on above: Result Comment: Sour ce- MDRD equation with creatinine calibration to IDMS(NKDEP) eGFR not recommended for drug dose adjustment Performed By: #### H EMDF, PT, BMP3M, PHOS3, MG3, CK3 #### [address] #### VD25H #### [facility] [address] [place] [place] [address] Urea nitrogen mass conc 7 mg/dL Normal 7-20 [facility] Comment on above: Performed By: #### H EMDF, PT, BMP3M, PHOS3, MG3, CK3 #### [address] #### VD25H #### [facility] [address] [place] [address] Potassium molar conc 3.7 mmol/L Normal 3.5-5.1 [facility] Comment on above: Performed By: #### H EMDF, PT, BMP3M, PHOS3, MG3, CK3 #### [address] #### VD25H #### [facility] [address] [place] [address] Chloride molar conc 101 mmol/L Normal 98-107 [facility] Comment on above: Performed By: #### H EMDF, PT, BMP3M, PHOS3, MG3, CK3 #### [facility] [address] [place] [address] #### VD25H #### [facility] [address] [place] [address] Sodium molar conc 138 mmol/L Normal 135-145 [facility] Comment on above: Performed By: #### H EMDF, PT, BMP3M, PHOS3, MG3, CK3 #### [facility] [address] [place], [place] #### VD25H #### [facility] [address] [place] [address] CR Chest Portableon 08-22-19 CR Chest Portable Patient Name: KATHYA HOOPER Diagnostic Radiology Exam Date/Time 08/21/2018 09:46:47 EDT Exam CR Chest Portable Ordering Physician MALLORY STAPLES Accession Number [id number] CPT4 Codes 08745 () Reason For Exam edema Report PORTABLE [...] EMDF, PT, BMP3M, PHOS3, MG3, CK3 #### [facility] [address], [place] #### VD25H #### [facility] [address] [place] [address] Glucose,Bedsideon 08-21-2018 Glucose mass conc 124 mg/dL High 70-100 [facility] Comment on above: Result Comment: Test performed by glucose meter. Results may be 10%-15% lower than serum/plasma values. (CLIA ID [id number]) Performed By: #### H EMDF, PT, BMP3M, PHOS3, MG3, CK3 #### [facility] [address], [place] #### VD25H #### [facility] [address] [place] [address] Glucose mass conc 135 mg/dL High 70-100 [facility] Comment on above: Result Comment: Test performed by glucose meter. Results may be 10%-15% lower than serum/plasma values. (CLIA ID [id number]) Performed By: #### H EMDF, PT, BMP3M, PHOS3, MG3, CK3 #### [facility] [address] [place] [address] #### VD25H #### [facility] [address] [place] [address] Glucose mass conc 131 mg/dL High 70-100 [facility] Comment on above: Result Comment: Test performed by glucose meter. Results may be 10%-15% lower than serum/plasma values. (CLIA ID [id number]) Performed By: #### H EMDF, PT, BMP3M, PHOS3, MG3, CK3 #### [place] [address] [place], [place] #### VD25H #### [facility] [address] [place] [address] Glucose mass conc 112 mg/dL High 70-100 [facility] Comment on above: Result Comment: Test performed by glucose meter. Results may be 10%-15% lower than serum/plasma values. (CLIA ID [id number]) Performed By: #### H EMDF, PT, BMP3M, PHOS3, MG3, CK3 #### [place] [address] [place], [place] #### VD25H #### [facility] [address] [place] [address] Basic Metabolic Panelon - Anion gap molar conc 4 Normal [facility] Comment on above: Performed By: #### H EMDF, PT, BMP3M, PHOS3, MG3, CK3 #### [place] [address] [facility], [place] #### VD25H #### [facility] [address] [place] [address] Calcium mass conc 7.6 mg/dL Low 8.4-10.4 [facility] Comment on above: Performed By: #### H EMDF, PT, BMP3M, PHOS3, MG3, CK3 #### [place] [address] [address] [facility], [place] #### VD25H #### [facility] [address] [place] [address] CO2 molar conc 36 mmol/L High 22-30 [facility] Comment on above: Performed By: #### H EMDF, PT, BMP3M, PHOS3, MG3, CK3 #### [place] [address] [facility] [place] #### VD25H #### [facility] [address] [place] [address] Glucose mass conc 121 mg/dL High 70-100 [facility] Comment on above: Performed By: #### H EMDF, PT, BMP3M, PHOS3, MG3, CK3 #### [address] #### VD25H #### [facility] [address] [place] [address] Urea nitrogen mass conc 9 mg/dL Normal 7-20 [facility] Comment on above: Performed By: #### H EMDF, PT, BMP3M, PHOS3, MG3, CK3 #### [address] #### VD25H #### [facility] [address] [place] [address] Creatinine mass conc 0.51 mg/dL Low 0.52-1.25 [facility] Comment on above: Performed By: #### H EMDF, PT, BMP3M, PHOS3, MG3, CK3 #### [address] #### VD25H #### [facility] [address] [place] [address] GFR/1.73 sq M predicted among blacks MDRD vol rate/area (S/P/Bld) mL/min/{1.73_m2} Normal >60 [facility] Comment on above: Performed By: #### H EMDF, PT, BMP3M, PHOS3, MG3, CK3 #### [address] #### VD25H #### [facility] [address] [place] [address] GFR/1.73 sq M predicted among non-blacks MDRD vol rate/area (S/P/Bld) mL/min/{1.73_m2} Normal >60 [facility] Comment on above: Result Comment: Sour ce- MDRD equation with creatinine calibration to IDMS(NKDEP) eGFR not recommended for drug dose adjustment Performed By: #### H EMDF, PT, BMP3M, PHOS3, MG3, CK3 #### [facility] [address] [place], [place] #### VD25H #### [facility] [address] [place] [address] Chloride molar conc 100 mmol/L Normal 98-107 [facility] Comment on above: Performed By: #### H EMDF, PT, BMP3M, PHOS3, MG3, CK3 #### [facility] [address] [place], [place] #### VD25H #### [facility] [address] [place] [address] Potassium molar conc 3.3 mmol/L Low 3.5-5.1 [facility] Comment on above: Performed By: #### H EMDF, PT, BMP3M, PHOS3, MG3, CK3 #### [place] [address] [place], [place] #### VD25H #### [facility] [address] [place] [address] Sodium molar conc 140 mmol/L Normal 135-145 [facility] Comment on above: Performed By: #### H EMDF, PT, BMP3M, PHOS3, MG3, CK3 #### [facility] [address] [place], [place] #### VD25H #### [facility] [address] [place] [address] Glucose,Bedsideon 08-20-2018 Glucose mass conc 121 mg/dL High 70-100 [facility] Comment on above: Result Comment: Test performed by glucose meter. Results may be 10%-15% lower than serum/plasma values. (CLIA ID [id number]) Performed By: #### H EMDF, PT, BMP3M, PHOS3, MG3, CK3 #### [facility] [address] [facility], [place] #### VD25H #### [facility] [address] [place] [address] Glucose mass conc 127 mg/dL High 70-100 [facility] Comment on above: Result Comment: Test performed by glucose meter. Results may be 10%-15% lower than serum/plasma values. (CLIA ID [id number]) Performed By: #### H EMDF, PT, BMP3M, PHOS3, MG3, CK3 #### [facility] [address] [place], [place] #### VD25H #### [facility] [address] [place] [address] Hep A Abs, Totalon 9 Hep A Abs, Total Negative Normal Negative [facility] Comment on above: Result Comment: Perf ormed by [employer], [address] [place] [id number] [email or web address] Moo Lay MD - Lab. Director Performed By: #### H EMDF, PT, BMP3M, PHOS3, MG3, CK3 #### [place] [address] [place], [place] #### VD25H #### [facility] [address] [place] [address] Basic Metabolic Panelon -2 Anion gap molar conc 1 Normal [facility] Comment on above: Performed By: #### H EMDF, PT, BMP3M, PHOS3, MG3, CK3 #### [address] #### VD25H #### [facility] [address] [place] [address] Calcium mass conc 7.6 mg/dL Low 8.4-10.4 [facility] [facility] Comment on above: Performed By: #### H EMDF, PT, BMP3M, PHOS3, MG3, CK3 #### [address] #### VD25H #### [facility] [address] [facility] [address] CO2 molar conc 33 mmol/L High 22-30 [facility] Comment on above: Performed By: #### H EMDF, PT, BMP3M, PHOS3, MG3, CK3 #### [place] [address] [place], [place] #### VD25H #### [facility] [address] [place] [address] Glucose mass conc 139 mg/dL High 70-100 [facility] Comment on above: Performed By: #### H EMDF, PT, BMP3M, PHOS3, MG3, CK3 #### [place] [address] [address] [place], [place] #### VD25H #### [facility] [address] [place] [address] Urea nitrogen mass conc 10 mg/dL Normal 7-20 [facility] Comment on above: Performed By: #### H EMDF, PT, BMP3M, PHOS3, MG3, CK3 #### [address] #### VD25H #### [facility] [address] [place] [address] Creatinine mass conc 0.57 mg/dL Normal 0.52-1.25 [facility] Comment on above: Performed By: #### H EMDF, PT, BMP3M, PHOS3, MG3, CK3 #### [address] #### VD25H #### [facility] [address] [place] [address] GFR/1.73 sq M predicted among blacks MDRD vol rate/area (S/P/Bld) mL/min/{1.73_m2} Normal >60 [facility] Comment on above: Performed By: #### H EMDF, PT, BMP3M, PHOS3, MG3, CK3 #### [place] [address] [address] [place], [place] #### VD25H #### [facility] [address] [place] [address] GFR/1.73 sq M predicted among non-blacks MDRD vol rate/area (S/P/Bld) mL/min/{1.73_m2} Normal >60 [facility] Comment on above: Result Comment: Sour ce- MDRD equation with creatinine calibration to IDMS(NKDEP) eGFR not recommended for drug dose adjustment Performed By: #### H EMDF, PT, BMP3M, PHOS3, MG3, CK3 #### [facility] [address] [place], [place] #### VD25H #### [facility] [address] [place] [address] Potassium molar conc 3.4 mmol/L Low 3.5-5.1 [facility] Comment on above: Performed By: #### H EMDF, PT, BMP3M, PHOS3, MG3, CK3 #### [address] #### VD25H #### [facility] [address] [place] [address] Chloride molar conc 104 mmol/L Normal 98-107 [facility] Comment on above: Performed By: #### H EMDF, PT, BMP3M, PHOS3, MG3, CK3 #### [facility] [address] [place] #### VD25H #### [facility] [address] [place] [address] Sodium molar conc 138 mmol/L Normal 135-145 [facility] Comment on above: Performed By: #### H EMDF, PT, BMP3M, PHOS3, MG3, CK3 #### [facility] [address] [place] [address] #### VD25H #### [facility] [address] [place] [address] CULT./ST. BACTERIAon 019 CULT./ST. BACTERIA STAIN GRAM [...] 0.12 S Vancomycin(CHRISTI) = 1 S Normal [facility] Comment on above: Order Comment: or co llected Performed By: #### H EMDF, PT, BMP3M, PHOS3, MG3, CK3 #### [facility] [address] [place] [address] #### VD25H #### [facility] [address] [place] [address] Basic Metabolic Panelon 04-2 Calcium mass conc 7.8 mg/dL Low 8.4-10.4 [facility] Comment on above: Performed By: #### H EMDF, PT, BMP3M, PHOS3, MG3, CK3 #### [facility] [address] [facility], [place] #### VD25H #### [facility] [address] [place] [address] Glucose mass conc 104 mg/dL High 70-100 [facility] Comment on above: Performed By: #### H EMDF, PT, BMP3M, PHOS3, MG3, CK3 #### [place] [address] [facility], [place] #### VD25H #### [facility] [address] [place] [address] Urea nitrogen mass conc 12 mg/dL Normal 7-20 [facility] Comment on above: Performed By: #### H EMDF, PT, BMP3M, PHOS3, MG3, CK3 #### [place] [address] [facility], [place] #### VD25H #### [facility] [address] [place] [address] Anion gap molar conc 5 Normal [facility] Comment on above: Performed By: #### H EMDF, PT, BMP3M, PHOS3, MG3, CK3 #### [place] [address] [facility], [place] #### VD25H #### [facility] [address] [place] [address] CO2 molar conc 26 mmol/L Normal 22-30 [facility] Comment on above: Performed By: #### H EMDF, PT, BMP3M, PHOS3, MG3, CK3 #### [place] [address] [facility], [place] #### VD25H #### [facility] [address] [place] [address] Creatinine mass conc 0.61 mg/dL Normal 0.52-1.25 [facility] Comment on above: Performed By: #### H EMDF, PT, BMP3M, PHOS3, MG3, CK3 #### [address] #### VD25H #### [facility] [address] [place] [address] GFR/1.73 sq M predicted among blacks MDRD vol rate/area (S/P/Bld) mL/min/{1.73_m2} Normal >60 [facility] Comment on above: Performed By: #### H EMDF, PT, BMP3M, PHOS3, MG3, CK3 #### [address] #### VD25H #### [facility] [address] [place] [address] GFR/1.73 sq M predicted among non-blacks MDRD vol rate/area (S/P/Bld) mL/min/{1.73_m2} Normal >60 [facility] Comment on above: Result Comment: Sour ce- MDRD equation with creatinine calibration to IDMS(NKDEP) eGFR not recommended for drug dose adjustment Performed By: #### H EMDF, PT, BMP3M, PHOS3, MG3, CK3 #### [address] #### VD25H #### [facility] [address] [place] [address] Chloride molar conc 107 mmol/L Normal 98-107 [facility] Comment on above: Performed By: #### H EMDF, PT, BMP3M, PHOS3, MG3, CK3 #### [address] #### VD25H #### [facility] [address] [place] [address] Potassium molar conc 3.4 mmol/L Low 3.5-5.1 [facility] Comment on above: Performed By: #### H EMDF, PT, BMP3M, PHOS3, MG3, CK3 #### [address] [address] [place], [place] #### VD25H #### [facility] [address] [place] [address] Sodium molar conc 138 mmol/L Normal 135-145 [facility] Comment on above: Performed By: #### H EMDF, PT, BMP3M, PHOS3, MG3, CK3 #### [place] [address] [address] [place] #### VD25H #### [facility] [address] [place] [address] Glucose,Bedsideon 08-18-2018 Glucose mass conc 113 mg/dL High 70-100 [facility] Comment on above: Result Comment: Test performed by glucose meter. Results may be 10%-15% lower than serum/plasma values. (CLIA ID [id number]) Performed By: #### H EMDF, PT, BMP3M, PHOS3, MG3, CK3 #### [address] #### VD25H #### [facility] [address] [place] [address] Hemogram w/ Autodiffon 08-18 Erythrocyte distribution width Ratio (RBC) 14.4 % Normal 11.5-14.5 [facility] Comment on above: Performed By: #### H EMDF, PT, BMP3M, PHOS3, MG3, CK3 #### [place] [address] [place], [place] #### VD25H #### [facility] [address] [place] [address] Hematocrit Volume Fraction (Bld) 29.3 % Low 40.0-52.0 [facility] Comment on above: Performed By: #### H EMDF, PT, BMP3M, PHOS3, MG3, CK3 #### [address] #### VD25H #### [facility] [address] [place] [address] Hemoglobin mass conc (Bld) 9.8 g/dL Low 13.0-18.0 [facility] Comment on above: Performed By: #### H EMDF, PT, BMP3M, PHOS3, MG3, CK3 #### [address] [address] [place], [place] #### VD25H #### [facility] [address] [facility] [place] [address] MCH Entitic mass (RBC) 28.0 pg Normal 26.0-34.0 [facility] Comment on above: Performed By: #### H EMDF, PT, BMP3M, PHOS3, MG3, CK3 #### [address] #### VD25H #### [facility] [address] [facility] [address] MCHC mass conc (RBC) 33.4 % Normal 32.0-36.0 [facility] Comment on above: Performed By: #### H EMDF, PT, BMP3M, PHOS3, MG3, CK3 #### [address] #### VD25H #### [facility] [address] [facility] [place] [address] MCV Entitic volume (RBC) 84.1 fL Normal 80.0-98.0 [facility] Comment on above: Performed By: #### H EMDF, PT, BMP3M, PHOS3, MG3, CK3 #### [address] [place], [place] #### VD25H #### [facility] [address] [place] [address] Platelet mean volume Entitic volume (Bld) 7.9 fL Normal 7.4-10.4 [facility] Comment on above: Performed By: #### H EMDF, PT, BMP3M, PHOS3, MG3, CK3 #### [address] #### VD25H #### [facility] [address] [place] [address] Platelets #/vol (Bld) 301 10*3/uL Normal 140-440 [facility] Comment on above: Performed By: #### H EMDF, PT, BMP3M, PHOS3, MG3, CK3 #### [facility] [address] [place], [place] #### VD25H #### [facility] [address] [place] [address] RBC #/vol (Bld) 3.49 10*6/uL Low 4.40-5.90 [facility] Comment on above: Performed By: #### H EMDF, PT, BMP3M, PHOS3, MG3, CK3 #### [address] #### VD25H #### [place] [address] [place] [address] WBC #/vol (Bld) 8.3 10*3/uL Normal 3.6-10.7 [facility] Comment on above: Performed By: #### H EMDF, PT, BMP3M, PHOS3, MG3, CK3 #### [address] #### VD25H #### [facility] [address] [place] [address] Magnesiumon 08-18-2018 Magnesium mass conc 2.0 mg/dL Normal 1.6-2.3 [facility] Comment on above: Performed By: #### H EMDF, PT, BMP3M, PHOS3, MG3, CK3 #### [address] #### VD25H #### [facility] [address] [place] [address] Manual Diffon 08-18-2018 Abs Neutrophile Cnt 5.1 10*3/uL Normal 2.2-8.2 [facility] Comment on above: Performed By: #### H EMDF, PT, BMP3M, PHOS3, MG3, CK3 #### [address], [place] #### VD25H #### [facility] [address] [place] [address] Bands 3 % Normal 0-3 [facility] Comment on above: Performed By: #### H EMDF, PT, BMP3M, PHOS3, MG3, CK3 #### [facility] [address] [place] #### VD25H #### [facility] [address] [place] [address] Eosinophils #/vol (Bld) 0.2 10*3/uL Normal 0.0-0.5 [facility] Comment on above: Performed By: #### H EMDF, PT, BMP3M, PHOS3, MG3, CK3 #### [address] [address] [place], [place] #### VD25H #### [facility] [address] [place] [address] Eosinophils/100 WBC (Bld) 2 % Normal 1-6 [facility] Comment on above: Performed By: #### H EMDF, PT, BMP3M, PHOS3, MG3, CK3 #### [address] [place] #### VD25H #### [facility] [address] [place] [address] Lymphocytes #/vol (Bld) 2.1 10*3/uL Normal 1.1-4.5 [facility] Comment on above: Performed By: #### H EMDF, PT, BMP3M, PHOS3, MG3, CK3 #### [address] [place] #### VD25H #### [facility] [address] [place] [address] Lymphocytes/100 WBC (Bld) 25 % Normal 20-40 [facility] Comment on above: Performed By: #### H EMDF, PT, BMP3M, PHOS3, MG3, CK3 #### [place] [place] #### VD25H #### [facility] [address] [place] [address] Metamyelocytes 1 % Abnormal <1 [facility] Comment on above: Performed By: #### H EMDF, PT, BMP3M, PHOS3, MG3, CK3 #### [place] [address] [place] #### VD25H #### [facility] [address] [place] [address] Monocytes #/vol (Bld) 0.6 10*3/uL Normal 0.2-1.1 [facility] Comment on above: Performed By: #### H EMDF, PT, BMP3M, PHOS3, MG3, CK3 #### [place] [address] [place] #### VD25H #### [place] [address] [place] [address] Monocytes/100 WBC (Bld) 7 % Normal 2-10 [facility] Comment on above: Performed By: #### H EMDF, PT, BMP3M, PHOS3, MG3, CK3 #### [place] [address] [place] #### VD25H #### [place] [address] [place] [address] Myelocytes 1 % Abnormal <1 [facility] Comment on above: Performed By: #### H EMDF, PT, BMP3M, PHOS3, MG3, CK3 #### [address] [place] #### VD25H #### [facility] [address] [place] [address] Protein mass conc 2 % Abnormal <1 [facility] Comment on above: Performed By: #### H EMDF, PT, BMP3M, PHOS3, MG3, CK3 #### [address] #### VD25H #### [place] [address] [place] [address] RBC morphology finding Nom (Bld) See Prev Normal [facility] Comment on above: Performed By: #### H EMDF, PT, BMP3M, PHOS3, MG3, CK3 #### [address] [place] [place], [place] #### VD25H #### [facility] [address] [place] [address] Seg Neutrophils 59 % Normal 40-80 [facility] Comment on above: Performed By: #### H EMDF, PT, BMP3M, PHOS3, MG3, CK3 #### [address] #### VD25H #### [facility] [address] [place] [address] Abs Baso Cnt 0.0 10*3/uL Normal 0.0-0.2 [facility] Comment on above: Performed By: #### H EMDF, PT, BMP3M, PHOS3, MG3, CK3 #### [address] [place] [address] [place], [place] #### VD25H #### [facility] [address] [place] [address] Basophils/100 WBC (Bld) 0 % Normal 0-2 [facility] Comment on above: Performed By: #### H EMDF, PT, BMP3M, PHOS3, MG3, CK3 #### [place] [address] [place], [place] #### VD25H #### [facility] [address] [place] [address] Cells counted 100 Normal [facility] Comment on above: Performed By: #### H EMDF, PT, BMP3M, PHOS3, MG3, CK3 #### [address] #### VD25H #### [facility] [address] [place] [address] Phosphoruson 08-18-2018 Phosphate mass conc 4.6 mg/dL High 2.5-4.5 [facility] Comment on above: Performed By: #### H EMDF, PT, BMP3M, PHOS3, MG3, CK3 #### [address] [place], [place] #### VD25H #### [facility] [address] [place] [address] Basic Metabolic Panelon - Calcium mass conc 7.7 mg/dL Low 8.4-10.4 [facility] Comment on above: Performed By: #### H EMDF, PT, BMP3M, PHOS3, MG3, CK3 #### [address] #### VD25H #### [facility] [address] [place] [address] Anion gap molar conc 7 Normal [facility] Comment on above: Performed By: #### H EMDF, PT, BMP3M, PHOS3, MG3, CK3 #### [address] #### VD25H #### [facility] [address] [place] [address] CO2 molar conc 25 mmol/L Normal 22-30 [facility] Comment on above: Performed By: #### H EMDF, PT, BMP3M, PHOS3, MG3, CK3 #### [address] #### VD25H #### [facility] [address] [place] [address] Creatinine mass conc 0.59 mg/dL Normal 0.52-1.25 [facility] Comment on above: Performed By: #### H EMDF, PT, BMP3M, PHOS3, MG3, CK3 #### [address] #### VD25H #### [facility] [address] [place] [address] GFR/1.73 sq M predicted among blacks MDRD vol rate/area (S/P/Bld) mL/min/{1.73_m2} Normal >60 [facility] Comment on above: Performed By: #### H EMDF, PT, BMP3M, PHOS3, MG3, CK3 #### [address] [place] [address] #### VD25H #### [facility] [address] [place] [address] GFR/1.73 sq M predicted among non-blacks MDRD vol rate/area (S/P/Bld) mL/min/{1.73_m2} Normal >60 [facility] Comment on above: Result Comment: Sour ce- MDRD equation with creatinine calibration to IDMS(NKDEP) eGFR not recommended for drug dose adjustment Performed By: #### H EMDF, PT, BMP3M, PHOS3, MG3, CK3 #### [place] [address] [place], [place] #### VD25H #### [facility] [address] [place] [address] Glucose mass conc 116 mg/dL High 70-100 [facility] Comment on above: Performed By: #### H EMDF, PT, BMP3M, PHOS3, MG3, CK3 #### [address] #### VD25H #### [facility] [address] [place] [address] Urea nitrogen mass conc 12 mg/dL Normal 7-20 [facility] Comment on above: Performed By: #### H EMDF, PT, BMP3M, PHOS3, MG3, CK3 #### [place] [address] [place], [place] #### VD25H #### [facility] [address] [place] [address] Potassium molar conc 3.2 mmol/L Low 3.5-5.1 [facility] Comment on above: Performed By: #### H EMDF, PT, BMP3M, PHOS3, MG3, CK3 #### [facility] [address] [place] [address] #### VD25H #### [facility] [address] [place] [address] Sodium molar conc 138 mmol/L Normal 135-145 [facility] Comment on above: Performed By: #### H EMDF, PT, BMP3M, PHOS3, MG3, CK3 #### [facility] [address] [place] [address] #### VD25H #### [facility] [address] [place] [address] Chloride molar conc 106 mmol/L Normal 98-107 [facility] Comment on above: Performed By: #### H EMDF, PT, BMP3M, PHOS3, MG3, CK3 #### [facility] [address] [place] [address] #### VD25H #### [facility] [address] [place] [address] CR Chest Portableon 08-18-19 CR Chest Portable Patient Name: KATHYA HOOPER Diagnostic Radiology Exam Date/Time 08/17/2018 17:54:46 EDT Exam CR Chest Portable Ordering Physician SALO DAVIS Accession Number [id number] CPT4 Codes 86620 () Reason For Exam line placement Report [...] Physician ETIENNE VELÁSQUEZ KATHYA Costa Accession Number [id number] CPT4 Codes 48147 () Reason For Exam follow left pleural [...] PHOS3, MG3, CK3 #### [facility] [address] [place] [address] #### VD25H #### [facility] [address] [place] [address] Folateon 08-17-2018 Folate 15.1 ng/mL Normal 2.8-20.0 [facility] Comment on above: Performed By: #### H EMDF, PT, BMP3M, PHOS3, MG3, CK3 #### [facility] [address] [place], [place] #### VD25H #### [facility] dough [facility] [address] [place] [address] Glucose,Bedsideon 08-17-2018 Glucose mass conc 133 mg/dL High 70-100 [facility] Comment on above: Result Comment: Test performed by glucose meter. Results may be 10%-15% lower than serum/plasma values. (CLIA ID [id number]) Performed By: #### H EMDF, PT, BMP3M, PHOS3, MG3, CK3 #### [address] #### VD25H #### [facility] dough [facility] [address] [place] [address] Hemoglobin A1Con 08-17-2018 Hemoglobin A1c/Hemoglobin.total mass fraction (Bld) 117 mg/dL Normal [facility] Comment on above: Performed By: #### H EMDF, PT, BMP3M, PHOS3, MG3, CK3 #### [facility] [address] #### VD25H #### [facility] [address] [place] [address] Hemoglobin A1c/Hemoglobin.total mass fraction (Bld) 5.7 % Normal 4.0-5.7 [facility] Comment on above: Result Comment: --Hg bA1C levels may not be accurate in patients who have renal disease, received recent blood transfusions, are anemic, or who have dyshemoglobinemia. Performed By: #### H EMDF, PT, BMP3M, PHOS3, MG3, CK3 #### [facility] [address] #### VD25H #### [facility] [address] [place] [address] Hemogram w/ Autodiffon 08-17 Erythrocyte distribution width Ratio (RBC) 14.3 % Normal 11.5-14.5 [facility] Comment on above: Performed By: #### H EMDF, PT, BMP3M, PHOS3, MG3, CK3 #### [address] #### VD25H #### [facility] [address] [place] [address] Hematocrit Volume Fraction (Bld) 29.1 % Low 40.0-52.0 [facility] Comment on above: Performed By: #### H EMDF, PT, BMP3M, PHOS3, MG3, CK3 #### [address] #### VD25H #### [facility] [address] [facility] [address] Hemoglobin mass conc (Bld) 9.8 g/dL Low 13.0-18.0 [facility] Comment on above: Performed By: #### H EMDF, PT, BMP3M, PHOS3, MG3, CK3 #### [address] #### VD25H #### [facility] [address] [place] [place] [address] MCH Entitic mass (RBC) 28.4 pg Normal 26.0-34.0 [facility] Comment on above: Performed By: #### H EMDF, PT, BMP3M, PHOS3, MG3, CK3 #### [address] #### VD25H #### [facility] [address] [place] [address] MCHC mass conc (RBC) 33.5 % Normal 32.0-36.0 [facility] Comment on above: Performed By: #### H EMDF, PT, BMP3M, PHOS3, MG3, CK3 #### [address] #### VD25H #### [facility] [address] [place] [address] MCV Entitic volume (RBC) 84.7 fL Normal 80.0-98.0 [facility] Comment on above: Performed By: #### H EMDF, PT, BMP3M, PHOS3, MG3, CK3 #### [address] [place], [place] #### VD25H #### [facility] [address] [place] [address] Platelet mean volume Entitic volume (Bld) 8.1 fL Normal 7.4-10.4 [facility] Comment on above: Performed By: #### H EMDF, PT, BMP3M, PHOS3, MG3, CK3 #### [place] [address] [place], [place] #### VD25H #### [facility] [address] [place] [address] Platelets #/vol (Bld) 281 10*3/uL Normal 140-440 [facility] Comment on above: Performed By: #### H EMDF, PT, BMP3M, PHOS3, MG3, CK3 #### [address] #### VD25H #### [facility] [address] [place] [address] RBC #/vol (Bld) 3.44 10*6/uL Low 4.40-5.90 [facility] Comment on above: Performed By: #### H EMDF, PT, BMP3M, PHOS3, MG3, CK3 #### [address] #### VD25H #### [facility] [address] [place] [address] WBC #/vol (Bld) 8.3 10*3/uL Normal 3.6-10.7 [facility] Comment on above: Performed By: #### H EMDF, PT, BMP3M, PHOS3, MG3, CK3 #### [address] #### VD25H #### [facility] [address] [place] [address] Hep B Surface Abon 9 Hep B Surface Ab < 8.0 Normal [facility] Comment on above: Result Comment: Inte rpretation: <8.0 Non-Reactive 8.0-11.9 Equivocal >= 12.0 Ab Detected Performed By: #### H EMDF, PT, BMP3M, PHOS3, MG3, CK3 #### [facility] [address] [place], [place] #### VD25H #### [facility] [address] [place] [address] Hep B Surface Agon 9 Hep B Surface Ag NOT DETECTED Normal Not-Detected [facility] Comment on above: Performed By: #### H EMDF, PT, BMP3M, PHOS3, MG3, CK3 #### [facility] [address] [place], [place] #### VD25H #### [facility] [address] [place] [address] Hep C Antibodyon 08-17-2018 Hep C Antibody NOT DETECTED Normal Not-Detected [facility] Comment on above: Result Comment: Bharti ents with DETECTED Hepatitis C Ab results should have a new specimen submitted for supplemental testing with a Hepatitis C Quantitative RNA assay (viral load), if clinically indicated. Performed By: #### H EMDF, PT, BMP3M, PHOS3, MG3, CK3 #### [facility] [address] [place], [place] #### VD25H #### [facility] [address] [place] [address] Hepatic Functionon 9 ALP enzyme act/vol 116 U/L Normal 38-126 [facility] Comment on above: Performed By: #### H EMDF, PT, BMP3M, PHOS3, MG3, CK3 #### [facility] [address] [place], [place] #### VD25H #### [facility] [address] [place] [address] ALT enzyme act/vol 370 U/L High 13-69 [facility] Comment on above: Performed By: #### H EMDF, PT, BMP3M, PHOS3, MG3, CK3 #### [facility] [address] [place], [place] #### VD25H #### [facility] [address] [place] [address] AST enzyme act/vol 150 U/L High 15-46 [facility] Comment on above: Performed By: #### H EMDF, PT, BMP3M, PHOS3, MG3, CK3 #### [place] [address] [place], [place] #### VD25H #### [facility] [address] [place] [address] Bilirubin mass conc 0.7 mg/dL Normal 0.2-1.3 [facility] Comment on above: Performed By: #### H EMDF, PT, BMP3M, PHOS3, MG3, CK3 #### [address] #### VD25H #### [facility] [address] [place] [address] Bilirubin.direct mass conc 0.0 mg/dL Normal 0.0-0.3 [facility] Comment on above: Performed By: #### H EMDF, PT, BMP3M, PHOS3, MG3, CK3 #### [address] [place], [place] #### VD25H #### [facility] [address] [place] [address] Protein mass conc 5.4 g/dL Low 6.3-8.2 [facility] Comment on above: Performed By: #### H EMDF, PT, BMP3M, PHOS3, MG3, CK3 #### [address] #### VD25H #### [facility] [address] [place] [address] Albumin mass conc 2.5 g/dL Low 3.5-5.0 [facility] Comment on above: Performed By: #### H EMDF, PT, BMP3M, PHOS3, MG3, CK3 #### [facility] [address] [place], [place] #### VD25H #### [facility] [address] [place] [address] Iron AND TIBCon 08-17-2018 Saturation 14 % Low 15-50 [facility] Comment on above: Performed By: #### H EMDF, PT, BMP3M, PHOS3, MG3, CK3 #### [facility] [address] [place], [place] #### VD25H #### [facility] [address] [place] [address] Total Iron Binding Cap. 166 ug/dL Low 261-497 [facility] Comment on above: Performed By: #### H EMDF, PT, BMP3M, PHOS3, MG3, CK3 #### [address] [place] [address] [place], [place] #### VD25H #### [facility] [address] [place] [address] Iron, Total 23 ug/dL Low 49-181 [facility] Comment on above: Performed By: #### H EMDF, PT, BMP3M, PHOS3, MG3, CK3 #### [facility] [address] [place], [place] #### VD25H #### [facility] [address] [place] [address] Magnesiumon 08-17-2018 Magnesium mass conc 2.0 mg/dL Normal 1.6-2.3 [facility] Comment on above: Performed By: #### H EMDF, PT, BMP3M, PHOS3, MG3, CK3 #### [facility] [address] [place] #### VD25H #### [facility] [address] [place] [address] Manual Diffon 08-17-2018 Abs Baso Cnt 0.1 10*3/uL Normal 0.0-0.2 [facility] Comment on above: Performed By: #### H EMDF, PT, BMP3M, PHOS3, MG3, CK3 #### [facility] [address] [place] [address] #### VD25H #### [facility] [address] [place] [address] Abs Neutrophile Cnt 5.6 10*3/uL Normal 2.2-8.2 [facility] Comment on above: Performed By: #### H EMDF, PT, BMP3M, PHOS3, MG3, CK3 #### [address] [place], [place] #### VD25H #### [facility] [address] [place] [address] Anisocytosis Ql (Bld) Slight Normal [facility] Comment on above: Performed By: #### H EMDF, PT, BMP3M, PHOS3, MG3, CK3 #### [address] [place], [place] #### VD25H #### [facility] [address] [place] [address] Bands 9 % High 0-3 [facility] Comment on above: Performed By: #### H EMDF, PT, BMP3M, PHOS3, MG3, CK3 #### [address] [place] #### VD25H #### [facility] [address] [place] [address] Basophils/100 WBC (Bld) 1 % Normal 0-2 [facility] Comment on above: Performed By: #### H EMDF, PT, BMP3M, PHOS3, MG3, CK3 #### [address] [place] #### VD25H #### [facility] [address] [place] [address] Eosinophils #/vol (Bld) 0.2 10*3/uL Normal 0.0-0.5 [facility] Comment on above: Performed By: #### H EMDF, PT, BMP3M, PHOS3, MG3, CK3 #### [address] [place], [place] #### VD25H #### [facility] [address] [place] [address] Eosinophils/100 WBC (Bld) 3 % Normal 1-6 [facility] Comment on above: Performed By: #### H EMDF, PT, BMP3M, PHOS3, MG3, CK3 #### [facility] [address] [place] #### VD25H #### [facility] [address] [place] [address] Lymphocytes #/vol (Bld) 1.5 10*3/uL Normal 1.1-4.5 [facility] Comment on above: Performed By: #### H EMDF, PT, BMP3M, PHOS3, MG3, CK3 #### [address] [place], [place] #### VD25H #### [facility] [address] [place] [address] Lymphocytes/100 WBC (Bld) 18 % Low 20-40 [facility] Comment on above: Performed By: #### H EMDF, PT, BMP3M, PHOS3, MG3, CK3 #### [address] [place], [place] #### VD25H #### [facility] [address] [place] [address] Monocytes #/vol (Bld) 0.4 10*3/uL Normal 0.2-1.1 [facility] Comment on above: Performed By: #### H EMDF, PT, BMP3M, PHOS3, MG3, CK3 #### [address] [place], [place] #### VD25H #### [facility] [address] [place] [address] Monocytes/100 WBC (Bld) 5 % Normal 2-10 [facility] Comment on above: Performed By: #### H EMDF, PT, BMP3M, PHOS3, MG3, CK3 #### [address] [address] [place] #### VD25H #### [facility] [address] [place] [address] Myelocytes 5 % Abnormal <1 [facility] Comment on above: Performed By: #### H EMDF, PT, BMP3M, PHOS3, MG3, CK3 #### [facility] [address] [place] #### VD25H #### [facility] [address] [place] [address] Polychromasia Slight Normal [facility] Comment on above: Performed By: #### H EMDF, PT, BMP3M, PHOS3, MG3, CK3 #### [facility] [address] [place] #### VD25H #### [facility] [address] [place] [address] RBC morphology finding Nom (Bld) ABNORMAL Normal [facility] Comment on above: Performed By: #### H EMDF, PT, BMP3M, PHOS3, MG3, CK3 #### [facility] [address] [place], [place] #### VD25H #### [facility] [address] [place] [address] Seg Neutrophils 59 % Normal 40-80 [facility] Comment on above: Performed By: #### H EMDF, PT, BMP3M, PHOS3, MG3, CK3 #### [facility] [address] [place], [place] #### VD25H #### [facility] [address] [place] [address] Toxic Granulation Slight Normal [facility] Comment on above: Performed By: #### H EMDF, PT, BMP3M, PHOS3, MG3, CK3 #### [facility] [address] [place], [place] #### VD25H #### [facility] [address] [place] [address] Cells counted 100 Normal [facility] Comment on above: Performed By: #### H EMDF, PT, BMP3M, PHOS3, MG3, CK3 #### [address] [place], [place] #### VD25H #### [facility] [address] [place] [address] Phosphoruson 08-17-2018 Phosphate mass conc 3.9 mg/dL Normal 2.5-4.5 [facility] Comment on above: Performed By: #### H EMDF, PT, BMP3M, PHOS3, MG3, CK3 #### [address] #### VD25H #### [facility] [address] [place] [address] Triglycerideon 08-17-2018 Triglyceride mass conc 104 mg/dL Normal <150 [facility] Comment on above: Performed By: #### H EMDF, PT, BMP3M, PHOS3, MG3, CK3 #### [address] #### VD25H #### [facility] [address] [place] [address] Vitamin B12on 08-17-2018 Cobalamin (Vitamin B12) mass conc 615 pg/mL Normal 239-931 [facility] Comment on above: Performed By: #### H EMDF, PT, BMP3M, PHOS3, MG3, CK3 #### [address] #### VD25H #### [facility] [address] [place] [address] Albumin, Serumon 08-16-2018 Albumin mass conc 2.6 g/dL Low 3.5-5.0 [facility] Comment on above: Performed By: #### H EMDF, PT, BMP3M, PHOS3, MG3, CK3 #### [address] #### VD25H #### [facility] [address] [place] [address] CR Abdomen APon 08-16-2018 CR Abdomen AP Patient Name: KATHYA HOOPER Diagnostic Radiology Exam Date/Time 08/16/2018 10:17:24 EDT Exam CR Abdomen AP Ordering Physician JOEY CABALLERO Accession Number [id number] CPT4 Codes 09694 () Reason For Exam dobhoff placement Report [...] ALFRED Transcribed Date and Time: 08/16/2018 12:33 [facility] CR Chest Portableon 08-17-19 19 CR Chest Portable Patient Name: KATHYA HOOPER Diagnostic Radiology Exam Date/Time 08/16/2018 10:17:24 EDT Exam CR Chest Portable Ordering Physician BELGICA CABALLEROFANY Accession Number [id number] CPT4 Codes 56110 () Reason For Exam dyspnea Report PORTABLE [...] Calcium mass conc 7.8 mg/dL Low 8.4-10.4 [facility] Comment on above: Performed By: #### H EMDF, PT, BMP3M, PHOS3, MG3, CK3 #### [facility] [address] [place], [place] #### VD25H #### [facility] [address] [place] [address] Glucose mass conc 114 mg/dL High 70-100 [facility] Comment on above: Performed By: #### H EMDF, PT, BMP3M, PHOS3, MG3, CK3 #### [facility] [address] [place], [place] #### VD25H #### [facility] [address] [place] [address] ALP enzyme act/vol 114 U/L Normal 38-126 [facility] Comment on above: Performed By: #### H EMDF, PT, BMP3M, PHOS3, MG3, CK3 #### [facility] [address] [place], [place] #### VD25H #### [facility] [address] [place] [address] ALT enzyme act/vol 539 U/L High 13-69 [facility] Comment on above: Performed By: #### H EMDF, PT, BMP3M, PHOS3, MG3, CK3 #### [facility] [address] [place], [place] #### VD25H #### [facility] [address] [place] [address] Anion gap molar conc 4 Normal [facility] Comment on above: Performed By: #### H EMDF, PT, BMP3M, PHOS3, MG3, CK3 #### [facility] [address] [place] [address] #### VD25H #### [facility] [address] [place] [address] AST enzyme act/vol 460 U/L High 15-46 [facility] Comment on above: Performed By: #### H EMDF, PT, BMP3M, PHOS3, MG3, CK3 #### [address] #### VD25H #### [facility] [address] [place] [address] Bilirubin mass conc 0.7 mg/dL Normal 0.2-1.3 [facility] Comment on above: Performed By: #### H EMDF, PT, BMP3M, PHOS3, MG3, CK3 #### [address] #### VD25H #### [facility] [address] [place] [address] CO2 molar conc 25 mmol/L Normal 22-30 [facility] Comment on above: Performed By: #### H EMDF, PT, BMP3M, PHOS3, MG3, CK3 #### [address] [place], [place] #### VD25H #### [facility] [address] [place] [address] Creatinine mass conc 0.71 mg/dL Normal 0.52-1.25 [facility] Comment on above: Performed By: #### H EMDF, PT, BMP3M, PHOS3, MG3, CK3 #### [address] [place] [address] [facility], [place] #### VD25H #### [facility] [address] [place] [address] GFR/1.73 sq M predicted among blacks MDRD vol rate/area (S/P/Bld) mL/min/{1.73_m2} Normal >60 [facility] Comment on above: Performed By: #### H EMDF, PT, BMP3M, PHOS3, MG3, CK3 #### [address] #### VD25H #### [facility] [address] [place] [address] GFR/1.73 sq M predicted among non-blacks MDRD vol rate/area (S/P/Bld) mL/min/{1.73_m2} Normal >60 [facility] Comment on above: Result Comment: Sour ce- MDRD equation with creatinine calibration to IDMS(NKDEP) eGFR not recommended for drug dose adjustment Performed By: #### H EMDF, PT, BMP3M, PHOS3, MG3, CK3 #### [address] #### VD25H #### [facility] [address] [place] [address] Protein mass conc 5.1 g/dL Low 6.3-8.2 [facility] Comment on above: Performed By: #### H EMDF, PT, BMP3M, PHOS3, MG3, CK3 #### [address] #### VD25H #### [facility] [address] [place] [address] Urea nitrogen mass conc 22 mg/dL High 7-20 [facility] Comment on above: Performed By: #### H EMDF, PT, BMP3M, PHOS3, MG3, CK3 #### [address] #### VD25H #### [facility] [address] [place] [address] Chloride molar conc 102 mmol/L Normal 98-107 [facility] Comment on above: Performed By: #### H EMDF, PT, BMP3M, PHOS3, MG3, CK3 #### [facility] [address] [place] #### VD25H #### [facility] [address] [place] [address] Potassium molar conc 3.1 mmol/L Low 3.5-5.1 [facility] Comment on above: Performed By: #### H EMDF, PT, BMP3M, PHOS3, MG3, CK3 #### [place] [address] [facility] [place] #### VD25H #### [facility] [address] [place] [address] Sodium molar conc 131 mmol/L Low 135-145 [facility] Comment on above: Performed By: #### H EMDF, PT, BMP3M, PHOS3, MG3, CK3 #### [place] [address] [place], [place] #### VD25H #### [facility] [address] [place] [address] Albumin mass conc 2.4 g/dL Low 3.5-5.0 [facility] Comment on above: Performed By: #### H EMDF, PT, BMP3M, PHOS3, MG3, CK3 #### [address] [place], [place] #### VD25H #### [facility] [address] [place] [address] Glucose,Bedsideon 08-16-2018 Glucose mass conc 100 mg/dL Normal 70-100 [facility] Comment on above: Result Comment: Test performed by glucose meter. Results may be 10%-15% lower than serum/plasma values. (CLIA ID [id number]) Performed By: #### H EMDF, PT, BMP3M, PHOS3, MG3, CK3 #### [place] [address] [address] [facility] [place] #### VD25H #### [facility] [address] [place] [address] Glucose mass conc 98 mg/dL Normal 70-100 [facility] Comment on above: Result Comment: Test performed by glucose meter. Results may be 10%-15% lower than serum/plasma values. (CLIA ID [id number]) Performed By: #### H EMDF, PT, BMP3M, PHOS3, MG3, CK3 #### [facility] [address] [place], [place] #### VD25H #### [facility] [address] [place] [address] Glucose mass conc 110 mg/dL High 70-100 [facility] Comment on above: Result Comment: Test performed by glucose meter. Results may be 10%-15% lower than serum/plasma values. (CLIA ID [id number]) Performed By: #### H EMDF, PT, BMP3M, PHOS3, MG3, CK3 #### [facility] [address] [place] [address] #### VD25H #### [facility] [address] [place] [address] Glucose mass conc 113 mg/dL High 70-100 [facility] Comment on above: Result Comment: Test performed by glucose meter. Results may be 10%-15% lower than serum/plasma values. (CLIA ID [id number]) Performed By: #### H EMDF, PT, BMP3M, PHOS3, MG3, CK3 #### [facility] [address] [place] [address] #### VD25H #### [facility] [address] [place] [address] Glucose mass conc 126 mg/dL High 70-100 [facility] Comment on above: Result Comment: Test performed by glucose meter. Results may be 10%-15% lower than serum/plasma values. (CLIA ID [id number]) Performed By: #### H EMDF, PT, BMP3M, PHOS3, MG3, CK3 #### [facility] [address] [place] [address] #### VD25H #### [facility] [address] [place] [address] Hemogram w/ Autodiffon 08-16 Abs Baso Cnt 0.0 10*3/uL Normal 0.0-0.2 [facility] Comment on above: Performed By: #### H EMDF, PT, BMP3M, PHOS3, MG3, CK3 #### [address] #### VD25H #### [facility] [address] [place] [address] Abs Neutrophile Cnt 7.7 10*3/uL High 1.8-7.0 [facility] Comment on above: Performed By: #### H EMDF, PT, BMP3M, PHOS3, MG3, CK3 #### [address] #### VD25H #### [place] [address] [place] [address] Basophils/100 WBC (Bld) 0.5 % Normal 0.0-2.0 [facility] Comment on above: Performed By: #### H EMDF, PT, BMP3M, PHOS3, MG3, CK3 #### [address] #### VD25H #### [place] [address] [place] [address] Eosinophils #/vol (Bld) 0.1 10*3/uL Normal 0.0-0.5 [facility] Comment on above: Performed By: #### H EMDF, PT, BMP3M, PHOS3, MG3, CK3 #### [address] #### VD25H #### [place] [address] [place] [address] Eosinophils/100 WBC (Bld) 1.5 % Normal 1.0-6.0 [facility] Comment on above: Performed By: #### H EMDF, PT, BMP3M, PHOS3, MG3, CK3 #### [address] [place], [place] #### VD25H #### [facility] [address] [place] [address] Erythrocyte distribution width Ratio (RBC) 14.4 % Normal 11.5-14.5 [facility] Comment on above: Performed By: #### H EMDF, PT, BMP3M, PHOS3, MG3, CK3 #### [address] [place], [place] #### VD25H #### [facility] [address] [place] [address] Granulocytes/100 WBC (Bld) 79.7 % Normal 40.0-80.0 [facility] Comment on above: Performed By: #### H EMDF, PT, BMP3M, PHOS3, MG3, CK3 #### [address] #### VD25H #### [facility] [address] [place] [address] Hematocrit Volume Fraction (Bld) 27.1 % Low 40.0-52.0 [facility] Comment on above: Performed By: #### H EMDF, PT, BMP3M, PHOS3, MG3, CK3 #### [address] #### VD25H #### [facility] [address] [place] [address] Hemoglobin mass conc (Bld) 9.2 g/dL Low 13.0-18.0 [facility] Comment on above: Performed By: #### H EMDF, PT, BMP3M, PHOS3, MG3, CK3 #### [address] #### VD25H #### [facility] [address] [place] [address] Lymphocytes #/vol (Bld) 1.0 10*3/uL Normal 1.0-4.3 [facility] Comment on above: Performed By: #### H EMDF, PT, BMP3M, PHOS3, MG3, CK3 #### [address] #### VD25H #### [facility] [address] [place] [address] Lymphocytes/100 WBC (Bld) 10.0 % Low 20.0-40.0 [facility] Comment on above: Performed By: #### H EMDF, PT, BMP3M, PHOS3, MG3, CK3 #### [address] [place], [place] #### VD25H #### [facility] [address] [place] [address] MCH Entitic mass (RBC) 28.5 pg Normal 26.0-34.0 [facility] Comment on above: Performed By: #### H EMDF, PT, BMP3M, PHOS3, MG3, CK3 #### [address] #### VD25H #### [facility] [address] [place] [address] MCHC mass conc (RBC) 33.8 % Normal 32.0-36.0 [facility] Comment on above: Performed By: #### H EMDF, PT, BMP3M, PHOS3, MG3, CK3 #### [address] #### VD25H #### [facility] [address] [place] [address] MCV Entitic volume (RBC) 84.4 fL Normal 80.0-98.0 [facility] Comment on above: Performed By: #### H EMDF, PT, BMP3M, PHOS3, MG3, CK3 #### [address] #### VD25H #### [facility] [address] [place] [address] Monocytes #/vol (Bld) 0.8 10*3/uL Normal 0.0-0.8 [facility] Comment on above: Performed By: #### H EMDF, PT, BMP3M, PHOS3, MG3, CK3 #### [place] [address] [place], [place] #### VD25H #### [facility] [address] [place] [address] Monocytes/100 WBC (Bld) 8.3 % Normal 2.0-10.0 [facility] Comment on above: Performed By: #### H EMDF, PT, BMP3M, PHOS3, MG3, CK3 #### [address] [place] [address] [place], [place] #### VD25H #### [facility] [address] [place] [address] Platelet mean volume Entitic volume (Bld) 8.4 fL Normal 7.4-10.4 [facility] Comment on above: Performed By: #### H EMDF, PT, BMP3M, PHOS3, MG3, CK3 #### [address] [facility], [place] #### VD25H #### [facility] [address] [place] [address] Platelets #/vol (Bld) 245 10*3/uL Normal 140-440 [facility] Comment on above: Performed By: #### H EMDF, PT, BMP3M, PHOS3, MG3, CK3 #### [place] [address] [place], [place] #### VD25H #### [facility] [address] [place] [address] RBC #/vol (Bld) 3.21 10*6/uL Low 4.40-5.90 [facility] Comment on above: Performed By: #### H EMDF, PT, BMP3M, PHOS3, MG3, CK3 #### [address] #### VD25H #### [facility] [address] [place] [address] WBC #/vol (Bld) 9.7 10*3/uL Normal 3.6-10.7 [facility] Comment on above: Performed By: #### H EMDF, PT, BMP3M, PHOS3, MG3, CK3 #### [address] #### VD25H #### [facility] [address] [place] [address] Magnesiumon 08-16-2018 Magnesium mass conc 2.1 mg/dL Normal 1.6-2.3 [facility] Comment on above: Performed By: #### H EMDF, PT, BMP3M, PHOS3, MG3, CK3 #### [address] #### VD25H #### [facility] [address] [place] [address] Phosphoruson 08-16-2018 Phosphate mass conc 4.4 mg/dL Normal 2.5-4.5 [facility] Comment on above: Performed By: #### H EMDF, PT, BMP3M, PHOS3, MG3, CK3 #### [address] #### VD25H #### [facility] [address] [place] [address] Potassiumon 08-16-2018 Potassium molar conc 3.5 mmol/L Normal 3.5-5.1 [facility] Comment on above: Performed By: #### H EMDF, PT, BMP3M, PHOS3, MG3, CK3 #### [address] #### VD25H #### [facility] [address] [place] [address] Procalcitoninon 08-16-2018 Protein mass conc 3.10 ng/mL Abnormal <0.10 [facility] Comment on above: Performed By: #### H EMDF, PT, BMP3M, PHOS3, MG3, CK3 #### [address] #### VD25H #### [facility] [address] [place] [address] Prothrombin Timeon 9 INR Coag RelTime (PPP) 1.1 Normal 0.9-1.1 [facility] Comment on above: Result Comment: Yefri [...] PT, BMP3M, PHOS3, MG3, CK3 #### [address] #### VD25H #### [facility] [address] [facility] [address] Prothrombin time (PT) Coag time (PPP) 11.8 s Normal 9.0-12.0 [facility] Comment on above: Result Comment: . Performed By: #### H EMDF, PT, BMP3M, PHOS3, MG3, CK3 #### [address] #### VD25H #### [address] [place] [address] US Abdomen Limitedon 019 US Abdomen Limited Patient Name: KATHYA HOOPER Ultrasound Exam Date/Time 08/16/2018 19:12:00 EDT Exam US Abdomen Limited Ordering Physician JOEY CABALLERO Accession Number [id number] CPT4 Codes 57058 () Reason For Exam elevated transaminases Report [...] Glucose mass conc 98 mg/dL Normal 70-100 [facility] Comment on above: Result Comment: Test performed by glucose meter. Results may be 10%-15% lower than serum/plasma values. (CLIA ID [id number]) Performed By: #### H EMDF, PT, BMP3M, PHOS3, MG3, CK3 #### [facility] [address] [place] [address] #### VD25H #### [facility] [address] [place] [address] Procalcitoninon 08-15-2018 Interpretation See Below Normal [facility] Comment on above: Result Comment: PCT <0.50 = Low risk of severe sepsis and/or septic shock. PCT >2.00 = High risk of severe sepsis and/or septic shock. Performed By: #### H EMDF, PT, BMP3M, PHOS3, MG3, CK3 #### [facility] [address] [place] [address] #### VD25H #### [facility] [address] [place] [address] CULTURE FUNGUSon 08-13-2018 CULTURE FUNGUS CULTURE FUNGUS --> Status: F No fungus isolated after 21 days. Normal [facility] Comment on above: Order Comment: Speci men Source Comment:Body Fluid Performed By: #### H EMDF, PT, BMP3M, PHOS3, MG3, CK3 #### [facility] [address] [place], [place] #### VD25H #### [facility] [address] [place] [address] Hemogram w/ Autodiffon 08-01 Abs Baso Cnt 0.2 10*3/uL Normal 0.0-0.2 [facility] Comment on above: Performed By: #### H EMDF, PT, BMP3M, PHOS3, MG3, CK3 #### [address] #### VD25H #### [facility] [address] [place] [address] Abs Neutrophile Cnt 14.3 10*3/uL High 1.8-7.0 [facility] Comment on above: Performed By: #### H EMDF, PT, BMP3M, PHOS3, MG3, CK3 #### [address] #### VD25H #### [facility] [address] [place] [address] Basophils/100 WBC (Bld) 1.0 % Normal 0.0-2.0 [facility] Comment on above: Performed By: #### H EMDF, PT, BMP3M, PHOS3, MG3, CK3 #### [address] #### VD25H #### [facility] [address] [place] [address] Eosinophils #/vol (Bld) 0.4 10*3/uL Normal 0.0-0.5 [facility] Comment on above: Performed By: #### H EMDF, PT, BMP3M, PHOS3, MG3, CK3 #### [place] [address] [address] [place], [place] #### VD25H #### [facility] [address] [place] [address] Eosinophils/100 WBC (Bld) 2.3 % Normal 1.0-6.0 [facility] Comment on above: Performed By: #### H EMDF, PT, BMP3M, PHOS3, MG3, CK3 #### [facility] [address] [place], [place] #### VD25H #### [facility] [address] [place] [address] Erythrocyte distribution width Ratio (RBC) 13.7 % Normal 11.5-14.5 [facility] Comment on above: Performed By: #### H EMDF, PT, BMP3M, PHOS3, MG3, CK3 #### [address] #### VD25H #### [facility] [address] [place] [address] Granulocytes/100 WBC (Bld) 82.1 % High 40.0-80.0 [facility] Comment on above: Performed By: #### H EMDF, PT, BMP3M, PHOS3, MG3, CK3 #### [address] #### VD25H #### [facility] [address] [place] [address] Hematocrit Volume Fraction (Bld) 31.2 % Low 40.0-52.0 [facility] Comment on above: Performed By: #### H EMDF, PT, BMP3M, PHOS3, MG3, CK3 #### [address] #### VD25H #### [facility] [address] [place] [address] Hemoglobin mass conc (Bld) 10.5 g/dL Low 13.0-18.0 [facility] Comment on above: Performed By: #### H EMDF, PT, BMP3M, PHOS3, MG3, CK3 #### [place] [address] [place], [place] #### VD25H #### [facility] [address] [place] [address] Lymphocytes #/vol (Bld) 1.6 10*3/uL Normal 1.0-4.3 [facility] Comment on above: Performed By: #### H EMDF, PT, BMP3M, PHOS3, MG3, CK3 #### [place] [address] [address] [place], [place] #### VD25H #### [facility] [address] [place] [address] Lymphocytes/100 WBC (Bld) 9.1 % Low 20.0-40.0 [facility] Comment on above: Performed By: #### H EMDF, PT, BMP3M, PHOS3, MG3, CK3 #### [address] #### VD25H #### [facility] [address] [place] [address] MCH Entitic mass (RBC) 28.9 pg Normal 26.0-34.0 [facility] Comment on above: Performed By: #### H EMDF, PT, BMP3M, PHOS3, MG3, CK3 #### [place] [address] [address] [address] [place] #### VD25H #### [facility] [address] [place] [address] MCHC mass conc (RBC) 33.7 % Normal 32.0-36.0 [facility] Comment on above: Performed By: #### H EMDF, PT, BMP3M, PHOS3, MG3, CK3 #### [address] #### VD25H #### [facility] [address] [place] [address] MCV Entitic volume (RBC) 85.5 fL Normal 80.0-98.0 [facility] Comment on above: Performed By: #### H EMDF, PT, BMP3M, PHOS3, MG3, CK3 #### [address] [place] #### VD25H #### [facility] [address] [place] [address] Monocytes #/vol (Bld) 1.0 10*3/uL High 0.0-0.8 [facility] Comment on above: Performed By: #### H EMDF, PT, BMP3M, PHOS3, MG3, CK3 #### [address] #### VD25H #### [facility] [address] [place] [address] Monocytes/100 WBC (Bld) 5.5 % Normal 2.0-10.0 [facility] Comment on above: Performed By: #### H EMDF, PT, BMP3M, PHOS3, MG3, CK3 #### [address] #### VD25H #### [facility] [address] [place] [address] Platelet mean volume Entitic volume (Bld) 8.0 fL Normal 7.4-10.4 [facility] Comment on above: Performed By: #### H EMDF, PT, BMP3M, PHOS3, MG3, CK3 #### [address] #### VD25H #### [facility] [address] [place] [address] Platelets #/vol (Bld) 425 10*3/uL Normal 140-440 [facility] Comment on above: Performed By: #### H EMDF, PT, BMP3M, PHOS3, MG3, CK3 #### [address] #### VD25H #### [facility] [address] [place] [address] RBC #/vol (Bld) 3.65 10*6/uL Low 4.40-5.90 [facility] Comment on above: Performed By: #### H EMDF, PT, BMP3M, PHOS3, MG3, CK3 #### [place] [address] [address] [place] #### VD25H #### [facility] [address] [place] [address] WBC #/vol (Bld) 17.4 10*3/uL High 3.6-10.7 [facility] Comment on above: Performed By: #### H EMDF, PT, BMP3M, PHOS3, MG3, CK3 #### [address] [address] [place] #### VD25H #### [facility] [address] [place] [address] Basic Metabolic Panelon 04-0 Calcium mass conc 8.3 mg/dL Low 8.4-10.4 [facility] Comment on above: Performed By: #### H EMDF, PT, BMP3M, PHOS3, MG3, CK3 #### [address] [address] [place] #### VD25H #### [facility] [address] [place] [address] Glucose mass conc 114 mg/dL High 70-100 [facility] Comment on above: Performed By: #### H EMDF, PT, BMP3M, PHOS3, MG3, CK3 #### [facility] [address] [place] #### VD25H #### [facility] [address] [place] [address] Anion gap molar conc 10 Normal [facility] Comment on above: Performed By: #### H EMDF, PT, BMP3M, PHOS3, MG3, CK3 #### [place] [address] [place] #### VD25H #### [facility] [address] [place] [address] CO2 molar conc 34 mmol/L High 22-30 [facility] Comment on above: Performed By: #### H EMDF, PT, BMP3M, PHOS3, MG3, CK3 #### [address] [address] #### VD25H #### [facility] [address] [place] [address] Creatinine mass conc 0.52 mg/dL Normal 0.52-1.25 [facility] Comment on above: Performed By: #### H EMDF, PT, BMP3M, PHOS3, MG3, CK3 #### [address] [address] #### VD25H #### [place] [address] [place] [address] GFR/1.73 sq M predicted among blacks MDRD vol rate/area (S/P/Bld) mL/min/{1.73_m2} Normal >60 [facility] Comment on above: Performed By: #### H EMDF, PT, BMP3M, PHOS3, MG3, CK3 #### [address] [address] #### VD25H #### [facility] [address] [place] [address] GFR/1.73 sq M predicted among non-blacks MDRD vol rate/area (S/P/Bld) mL/min/{1.73_m2} Normal >60 [facility] Comment on above: Result Comment: Sour ce- MDRD equation with creatinine calibration to IDMS(NKDEP) eGFR not recommended for drug dose adjustment Performed By: #### H EMDF, PT, BMP3M, PHOS3, MG3, CK3 #### [address] [address] #### VD25H #### [place] [address] [place] [address] Urea nitrogen mass conc 23 mg/dL High 7-20 [facility] Comment on above: Performed By: #### H EMDF, PT, BMP3M, PHOS3, MG3, CK3 #### [place] [address] [address] [place] #### VD25H #### [facility] [address] [place] [address] Chloride molar conc 95 mmol/L Low 98-107 [facility] Comment on above: Performed By: #### H EMDF, PT, BMP3M, PHOS3, MG3, CK3 #### [place] [address] [address] [place] #### VD25H #### [facility] [address] [place] [address] Potassium molar conc 3.7 mmol/L Normal 3.5-5.1 [facility] Comment on above: Performed By: #### H EMDF, PT, BMP3M, PHOS3, MG3, CK3 #### [address] #### VD25H #### [place] [address] [place] [address] Sodium molar conc 139 mmol/L Normal 135-145 [facility] Comment on above: Performed By: #### H EMDF, PT, BMP3M, PHOS3, MG3, CK3 #### [place] [address] [place] #### VD25H #### [facility] [address] [place] [address] Hemogram w/ Autodiffon 07-31 Abs Baso Cnt 0.2 10*3/uL Normal 0.0-0.2 [facility] Comment on above: Performed By: #### H EMDF, PT, BMP3M, PHOS3, MG3, CK3 #### [address] [place], [place] #### VD25H #### [place] [address] [place] [address] Abs Neutrophile Cnt 13.4 10*3/uL High 1.8-7.0 [facility] Comment on above: Performed By: #### H EMDF, PT, BMP3M, PHOS3, MG3, CK3 #### [facility] [address] [place] #### VD25H #### [facility] [address] [place] [address] Basophils/100 WBC (Bld) 1.0 % Normal 0.0-2.0 [facility] Comment on above: Performed By: #### H EMDF, PT, BMP3M, PHOS3, MG3, CK3 #### [address] [place] #### VD25H #### [facility] [address] [place] [address] Eosinophils #/vol (Bld) 0.5 10*3/uL Normal 0.0-0.5 [facility] Comment on above: Performed By: #### H EMDF, PT, BMP3M, PHOS3, MG3, CK3 #### [address] #### VD25H #### [facility] [address] [place] [address] Eosinophils/100 WBC (Bld) 3.1 % Normal 1.0-6.0 [facility] Comment on above: Performed By: #### H EMDF, PT, BMP3M, PHOS3, MG3, CK3 #### [address] #### VD25H #### [facility] [address] [place] [address] Erythrocyte distribution width Ratio (RBC) 14.0 % Normal 11.5-14.5 [facility] Comment on above: Performed By: #### H EMDF, PT, BMP3M, PHOS3, MG3, CK3 #### [address] #### VD25H #### [facility] [address] [place] [address] Granulocytes/100 WBC (Bld) 80.6 % High 40.0-80.0 [facility] Comment on above: Performed By: #### H EMDF, PT, BMP3M, PHOS3, MG3, CK3 #### [facility] [address] [place] #### VD25H #### [facility] [address] [place] [address] Hematocrit Volume Fraction (Bld) 32.3 % Low 40.0-52.0 [facility] Comment on above: Performed By: #### H EMDF, PT, BMP3M, PHOS3, MG3, CK3 #### [address] [place], [place] #### VD25H #### [facility] [address] [place] [address] Hemoglobin mass conc (Bld) 10.8 g/dL Low 13.0-18.0 [facility] Comment on above: Performed By: #### H EMDF, PT, BMP3M, PHOS3, MG3, CK3 #### [address] [place] #### VD25H #### [facility] [address] [place] [address] Lymphocytes #/vol (Bld) 1.6 10*3/uL Normal 1.0-4.3 [facility] Comment on above: Performed By: #### H EMDF, PT, BMP3M, PHOS3, MG3, CK3 #### [address] [address] [place] #### VD25H #### [facility] [address] [place] [address] Lymphocytes/100 WBC (Bld) 9.8 % Low 20.0-40.0 [facility] Comment on above: Performed By: #### H EMDF, PT, BMP3M, PHOS3, MG3, CK3 #### [address] #### VD25H #### [facility] [address] [place] [address] MCH Entitic mass (RBC) 28.9 pg Normal 26.0-34.0 [facility] Comment on above: Performed By: #### H EMDF, PT, BMP3M, PHOS3, MG3, CK3 #### [address] #### VD25H #### [facility] [address] [place] [address] MCHC mass conc (RBC) 33.6 % Normal 32.0-36.0 [facility] Comment on above: Performed By: #### H EMDF, PT, BMP3M, PHOS3, MG3, CK3 #### [address] #### VD25H #### [facility] [address] [place] [address] MCV Entitic volume (RBC) 86.1 fL Normal 80.0-98.0 [facility] Comment on above: Performed By: #### H EMDF, PT, BMP3M, PHOS3, MG3, CK3 #### [address] #### VD25H #### [facility] [address] [place] [address] Monocytes #/vol (Bld) 0.9 10*3/uL High 0.0-0.8 [facility] Comment on above: Performed By: #### H EMDF, PT, BMP3M, PHOS3, MG3, CK3 #### [address] #### VD25H #### [facility] [address] [place] [address] Monocytes/100 WBC (Bld) 5.5 % Normal 2.0-10.0 [facility] Comment on above: Performed By: #### H EMDF, PT, BMP3M, PHOS3, MG3, CK3 #### [address] #### VD25H #### [facility] [address] [place] [address] Platelet mean volume Entitic volume (Bld) 8.2 fL Normal 7.4-10.4 [facility] Comment on above: Performed By: #### H EMDF, PT, BMP3M, PHOS3, MG3, CK3 #### [facility] [address] [place], [place] #### VD25H #### [facility] [address] [place] [address] Platelets #/vol (Bld) 475 10*3/uL High 140-440 [facility] Comment on above: Performed By: #### H EMDF, PT, BMP3M, PHOS3, MG3, CK3 #### [address] #### VD25H #### [facility] [address] [place] [address] RBC #/vol (Bld) 3.75 10*6/uL Low 4.40-5.90 [facility] Comment on above: Performed By: #### H EMDF, PT, BMP3M, PHOS3, MG3, CK3 #### [address] #### VD25H #### [facility] [address] [place] [address] WBC #/vol (Bld) 16.6 10*3/uL High 3.6-10.7 [facility] Comment on above: Performed By: #### H EMDF, PT, BMP3M, PHOS3, MG3, CK3 #### [address] #### VD25H #### [facility] [address] [place] [address] Magnesiumon 07-31-2018 Magnesium mass conc 2.4 mg/dL High 1.6-2.3 [facility] Comment on above: Performed By: #### H EMDF, PT, BMP3M, PHOS3, MG3, CK3 #### [address] #### VD25H #### [facility] [address] [place] [address] Phosphoruson 07-31-2018 Phosphate mass conc 4.5 mg/dL Normal 2.5-4.5 [facility] Comment on above: Performed By: #### H EMDF, PT, BMP3M, PHOS3, MG3, CK3 #### [place] [address] [place] #### VD25H #### [facility] [address] [place] [address] Basic Metabolic Panelon Calcium mass conc 8.6 mg/dL Normal 8.4-10.4 [facility] Comment on above: Performed By: #### H EMDF, PT, BMP3M, PHOS3, MG3, CK3 #### [address] #### VD25H #### [place] [address] [place] [address] Anion gap molar conc 8 Normal [facility] Comment on above: Performed By: #### H EMDF, PT, BMP3M, PHOS3, MG3, CK3 #### [place] [address] [facility] [place] #### VD25H #### [place] [address] [place] [address] CO2 molar conc 34 mmol/L High 22-30 [facility] Comment on above: Performed By: #### H EMDF, PT, BMP3M, PHOS3, MG3, CK3 #### [place] [address] [address] [facility], [place] #### VD25H #### [facility] [address] [place] [address] Creatinine mass conc 0.56 mg/dL Normal 0.52-1.25 [facility] Comment on above: Performed By: #### H EMDF, PT, BMP3M, PHOS3, MG3, CK3 #### [place] [address] [place] #### VD25H #### [facility] [address] [place] [address] GFR/1.73 sq M predicted among blacks MDRD vol rate/area (S/P/Bld) mL/min/{1.73_m2} Normal >60 [facility] Comment on above: Performed By: #### H EMDF, PT, BMP3M, PHOS3, MG3, CK3 #### [address] #### VD25H #### [place] [address] [place] [address] GFR/1.73 sq M predicted among non-blacks MDRD vol rate/area (S/P/Bld) mL/min/{1.73_m2} Normal >60 [facility] Comment on above: Result Comment: Sour ce- MDRD equation with creatinine calibration to IDMS(NKDEP) eGFR not recommended for drug dose adjustment Performed By: #### H EMDF, PT, BMP3M, PHOS3, MG3, CK3 #### [address] #### VD25H #### [facility] [address] [place] [address] Glucose mass conc 121 mg/dL High 70-100 [facility] Comment on above: Performed By: #### H EMDF, PT, BMP3M, PHOS3, MG3, CK3 #### [address] #### VD25H #### [facility] [address] [place] [address] Urea nitrogen mass conc 29 mg/dL High 7-20 [facility] Comment on above: Performed By: #### H EMDF, PT, BMP3M, PHOS3, MG3, CK3 #### [address] #### VD25H #### [place] [address] [place] [address] Chloride molar conc 99 mmol/L Normal 98-107 [facility] Comment on above: Performed By: #### H EMDF, PT, BMP3M, PHOS3, MG3, CK3 #### [facility] [address] [place] [address] #### VD25H #### [facility] [address] [place] [address] Potassium molar conc 3.7 mmol/L Normal 3.5-5.1 [facility] Comment on above: Performed By: #### H EMDF, PT, BMP3M, PHOS3, MG3, CK3 #### [facility] [address] [place] [address] #### VD25H #### [facility] [address] [place] [address] Sodium molar conc 141 mmol/L Normal 135-145 [facility] Comment on above: Performed By: #### H EMDF, PT, BMP3M, PHOS3, MG3, CK3 #### [facility] [address] [place] [address] #### VD25H #### [facility] [address] [place] [address] CR Abdomen APon 07-30-2018 CR Abdomen AP Patient Name: KATHYA HOOPER Diagnostic Radiology Exam Date/Time 07/30/2018 10:28:42 EDT Exam CR Abdomen AP Ordering Physician [id number] GUNN Accession Number [id number] CPT4 Codes 86732 () Reason For Exam abd distension Report [...] Normal [facility] CR Chest Portableon 07-31-19 CR Chest Portable Patient Name: KATHYA HOOPER Diagnostic Radiology Exam Date/Time 07/30/2018 12:28:13 EDT Exam CR Chest Portable Ordering Physician SALO DAVIS Accession Number [id number] CPT4 Codes 70696 () Reason For Exam line reposition Report [...] Ordering Physician MARIA EUGENIA PEREZ Accession Number [id number] CPT4 Codes 12643 () Reason For Exam ETT placement Report [...] Transcribed Date and Time: 07/30/2018 10:26 Normal [facility] dough [facility] Glucose,Bedsideon 07-30-2018 Glucose mass conc 125 mg/dL High 70-100 [employer] [facility] Comment on above: Result Comment: Test performed by glucose meter. Results may be 10%-15% lower than serum/plasma values. (CLIA ID [id number]) Performed By: #### H EMDF, PT, BMP3M, PHOS3, MG3, CK3 #### [facility] [address] [place] [address] #### VD25H #### [facility] [address] [place] [address] Glucose mass conc 117 mg/dL High 70-100 [facility] [employer] Comment on above: Result Comment: Test performed by glucose meter. Results may be 10%-15% lower than serum/plasma values. (CLIA ID [id number]) Performed By: #### H EMDF, PT, BMP3M, PHOS3, MG3, CK3 #### [facility] [address] [place] [address] #### VD25H #### [facility] [address] [place] [address] Glucose mass conc 44 mg/dL Low 70-100 [facility] Comment on above: Result Comment: Repe ated Test; Test performed by glucose meter. Results may be 10%-15% lower than serum/plasma values. (CLIA ID [id number]) Performed By: #### H EMDF, PT, BMP3M, PHOS3, MG3, CK3 #### [address] #### VD25H #### [facility] [address] [place] [address] Hemogram w/ Autodiffon 07-30 Abs Baso Cnt 0.2 10*3/uL Normal 0.0-0.2 [facility] Comment on above: Performed By: #### H EMDF, PT, BMP3M, PHOS3, MG3, CK3 #### [address] #### VD25H #### [facility] [address] [place] [address] Abs Neutrophile Cnt 13.2 10*3/uL High 1.8-7.0 [facility] Comment on above: Performed By: #### H EMDF, PT, BMP3M, PHOS3, MG3, CK3 #### [address] #### VD25H #### [facility] [address] [place] [address] Basophils/100 WBC (Bld) 0.9 % Normal 0.0-2.0 [facility] Comment on above: Performed By: #### H EMDF, PT, BMP3M, PHOS3, MG3, CK3 #### [address] #### VD25H #### [facility] [address] [facility] [address] Eosinophils #/vol (Bld) 0.5 10*3/uL Normal 0.0-0.5 [facility] Comment on above: Performed By: #### H EMDF, PT, BMP3M, PHOS3, MG3, CK3 #### [address] #### VD25H #### [facility] [address] [place] [address] Eosinophils/100 WBC (Bld) 2.8 % Normal 1.0-6.0 [facility] Comment on above: Performed By: #### H EMDF, PT, BMP3M, PHOS3, MG3, CK3 #### [place] [address] [place], [place] #### VD25H #### [facility] [address] [place] [address] Erythrocyte distribution width Ratio (RBC) 13.7 % Normal 11.5-14.5 [facility] Comment on above: Performed By: #### H EMDF, PT, BMP3M, PHOS3, MG3, CK3 #### [address] #### VD25H #### [facility] [address] [place] [address] Granulocytes/100 WBC (Bld) 76.6 % Normal 40.0-80.0 [facility] Comment on above: Performed By: #### H EMDF, PT, BMP3M, PHOS3, MG3, CK3 #### [address] [place], [place] #### VD25H #### [facility] [address] [place] [address] Hematocrit Volume Fraction (Bld) 31.4 % Low 40.0-52.0 [facility] Comment on above: Performed By: #### H EMDF, PT, BMP3M, PHOS3, MG3, CK3 #### [address] #### VD25H #### [facility] [address] [place] [address] Hemoglobin mass conc (Bld) 10.6 g/dL Low 13.0-18.0 [facility] Comment on above: Performed By: #### H EMDF, PT, BMP3M, PHOS3, MG3, CK3 #### [address] [place], [place] #### VD25H #### [facility] [address] [place] [address] Lymphocytes #/vol (Bld) 2.2 10*3/uL Normal 1.0-4.3 [facility] Comment on above: Performed By: #### H EMDF, PT, BMP3M, PHOS3, MG3, CK3 #### [address] [place], [place] #### VD25H #### [facility] [address] [place] [address] Lymphocytes/100 WBC (Bld) 12.9 % Low 20.0-40.0 [facility] Comment on above: Performed By: #### H EMDF, PT, BMP3M, PHOS3, MG3, CK3 #### [address] #### VD25H #### [facility] [address] [place] [address] MCH Entitic mass (RBC) 29.2 pg Normal 26.0-34.0 [facility] Comment on above: Performed By: #### H EMDF, PT, BMP3M, PHOS3, MG3, CK3 #### [address] #### VD25H #### [facility] [address] [place] [address] MCHC mass conc (RBC) 33.8 % Normal 32.0-36.0 [facility] Comment on above: Performed By: #### H EMDF, PT, BMP3M, PHOS3, MG3, CK3 #### [address] #### VD25H #### [facility] [address] [place] [address] MCV Entitic volume (RBC) 86.4 fL Normal 80.0-98.0 [facility] Comment on above: Performed By: #### H EMDF, PT, BMP3M, PHOS3, MG3, CK3 #### [facility] [address] [place], [place] #### VD25H #### [facility] [address] [place] [address] Monocytes #/vol (Bld) 1.2 10*3/uL High 0.0-0.8 [facility] Comment on above: Performed By: #### H EMDF, PT, BMP3M, PHOS3, MG3, CK3 #### [place] [address] [place], [place] #### VD25H #### [facility] [address] [place] [address] Monocytes/100 WBC (Bld) 6.8 % Normal 2.0-10.0 [facility] Comment on above: Performed By: #### H EMDF, PT, BMP3M, PHOS3, MG3, CK3 #### [address] #### VD25H #### [facility] [address] [place] [address] Platelet mean volume Entitic volume (Bld) 8.1 fL Normal 7.4-10.4 [facility] Comment on above: Performed By: #### H EMDF, PT, BMP3M, PHOS3, MG3, CK3 #### [address] #### VD25H #### [facility] [address] [place] [address] Platelets #/vol (Bld) 507 10*3/uL High 140-440 [facility] Comment on above: Performed By: #### H EMDF, PT, BMP3M, PHOS3, MG3, CK3 #### [address] [place], [place] #### VD25H #### [facility] [address] [place] [address] RBC #/vol (Bld) 3.64 10*6/uL Low 4.40-5.90 [facility] Comment on above: Performed By: #### H EMDF, PT, BMP3M, PHOS3, MG3, CK3 #### [facility] [address] [place], [place] #### VD25H #### [facility] [address] [place] [address] WBC #/vol (Bld) 17.2 10*3/uL High 3.6-10.7 [facility] Comment on above: Performed By: #### H EMDF, PT, BMP3M, PHOS3, MG3, CK3 #### [place] [address] [place], [place] #### VD25H #### [facility] [address] [place] [address] Magnesiumon 07-30-2018 Magnesium mass conc 2.5 mg/dL High 1.6-2.3 [facility] [employer] Comment on above: Performed By: #### H EMDF, PT, BMP3M, PHOS3, MG3, CK3 #### [facility] [address] [place], [place] #### VD25H #### [facility] [address] [place] [address] Phosphoruson 07-30-2018 Phosphate mass conc 4.5 mg/dL Normal 2.5-4.5 [facility] [employer] Comment on above: Performed By: #### H EMDF, PT, BMP3M, PHOS3, MG3, CK3 #### [facility] [address] [place], [place] #### VD25H #### [facility] dough [facility] [address] [place] [address] VL Venous Duplex US Lower Ex t Bilateralon 07-30-2018 VL Venous Duplex US Lower Ext Bilateral Patient Name: KATHYA HOOPER Ultrasound Exam Date/Time 07/30/2018 12:27:47 EDT Exam VL Venous Duplex US Lower Ext Bilateral Ordering Physician ETIENNE MARTÍNEZ JULIE Accession Number [id number] CPT4 Codes [id number] () Reason For Exam edema Report [facility] --- Lower Extremity Venous Duplex Report Patient Name: Kathya Hooper : 1955 Study Date: 07/30/2018 W (63yrs) Age: 63 Account: [id number] Gender: M Loc: [id number] BP: Ordering: Yesenia Martínez Technologist: Ordering Physician: Yesenia Martínez Calculation Clerk: Barbara Suarez RDMS, T Interpreting Physician: Krysta Arora --- Location: [facility] --- INDICATIONS: Edema. --- CONCLUSIONS 1. Normal [...] performed. The images were obtained using a Insync E9 vascular ultrasound machine. --- VENOUS FLOW [...] ---------+-------+--- --+ Electronically signed by: Krysta Arora [id number]:29:37 Final Dictated: 07/30/2018 1:30 pm Dictating Physician: KRYSTA ARORA Signed Date and Time: 07/30/2018 1:29 pm Signed by: KRYSTA ARORA Normal [facility] Arterial Blood Gaseson 07-29 CO2 molar conc 34.4 mmol/L High 23.0-27.0 [facility] Comment on above: Performed By: #### H EMDF, PT, BMP3M, PHOS3, MG3, CK3 #### [facility] [address] [place] [address] #### VD25H #### [facility] [address] [place] [address] HCO3 molar conc (Bld) 33.0 mmol/L High 21.0-25.0 [facility] Comment on above: Performed By: #### H EMDF, PT, BMP3M, PHOS3, MG3, CK3 #### [facility] [address] [place] [address] #### VD25H #### [facility] [address] [place] [address] Hemoglobin mass conc (Bld) 11.5 g/dL Normal ScreenOnly [facility] Comment on above: Performed By: #### H EMDF, PT, BMP3M, PHOS3, MG3, CK3 #### [facility] [address] [place], [place] #### VD25H #### [facility] [address] [place] [address] Oxygen ppres (Bld) 84.2 mm[Hg] Normal 80.0-100.0 [facility] Comment on above: Performed By: #### H EMDF, PT, BMP3M, PHOS3, MG3, CK3 #### [place] [address] [place], [place] #### VD25H #### [facility] [address] [place] [address] Oxygen saturation in Blood 96.2 % Normal 95.0-100.0 [facility] Comment on above: Performed By: #### H EMDF, PT, BMP3M, PHOS3, MG3, CK3 #### [place] [address] [place], [place] #### VD25H #### [facility] [address] [place] [address] pCO2 46.8 mm[Hg] High 35.0-45.0 [facility] Comment on above: Performed By: #### H EMDF, PT, BMP3M, PHOS3, MG3, CK3 #### [place] [address] [place], [place] #### VD25H #### [facility] [address] [place] [address] pH (Bld) 7.466 High 7.350-7.450 [facility] Comment on above: Performed By: #### H EMDF, PT, BMP3M, PHOS3, MG3, CK3 #### [facility] [address] [facility], [place] #### VD25H #### [facility] [address] [place] [address] Std Base Excess 8.2 mmol/L High -3.0-3.0 [facility] Comment on above: Performed By: #### H EMDF, PT, BMP3M, PHOS3, MG3, CK3 #### [place] [address] [place], [place] #### VD25H #### [facility] [address] [place] [address] FIO2 .30 Normal [facility] Comment on above: Performed By: #### H EMDF, PT, BMP3M, PHOS3, MG3, CK3 #### [address] #### VD25H #### [facility] [address] [place] [address] Basic Metabolic Panelon 03-3 Calcium mass conc 8.5 mg/dL Normal 8.4-10.4 [facility] Comment on above: Performed By: #### H EMDF, PT, BMP3M, PHOS3, MG3, CK3 #### [place] [address] [place], [place] #### VD25H #### [facility] [address] [place] [address] Glucose mass conc 163 mg/dL High 70-100 [facility] Comment on above: Performed By: #### H EMDF, PT, BMP3M, PHOS3, MG3, CK3 #### [address] #### VD25H #### [facility] [address] [place] [address] Anion gap molar conc 10 Normal [facility] Comment on above: Performed By: #### H EMDF, PT, BMP3M, PHOS3, MG3, CK3 #### [address] #### VD25H #### [facility] [address] [place] [address] CO2 molar conc 37 mmol/L High 22-30 [facility] Comment on above: Performed By: #### H EMDF, PT, BMP3M, PHOS3, MG3, CK3 #### [facility] [address] [place] #### VD25H #### [facility] [address] [place] [address] Creatinine mass conc 0.57 mg/dL Normal 0.52-1.25 [facility] Comment on above: Performed By: #### H EMDF, PT, BMP3M, PHOS3, MG3, CK3 #### [place] [address] [place], [place] #### VD25H #### [facility] [address] [place] [place] [address] GFR/1.73 sq M predicted among blacks MDRD vol rate/area (S/P/Bld) mL/min/{1.73_m2} Normal >60 [facility] Comment on above: Performed By: #### H EMDF, PT, BMP3M, PHOS3, MG3, CK3 #### [address] #### VD25H #### [facility] [address] [place] [address] GFR/1.73 sq M predicted among non-blacks MDRD vol rate/area (S/P/Bld) mL/min/{1.73_m2} Normal >60 [facility] Comment on above: Result Comment: Sour ce- MDRD equation with creatinine calibration to IDMS(NKDEP) eGFR not recommended for drug dose adjustment Performed By: #### H EMDF, PT, BMP3M, PHOS3, MG3, CK3 #### [address] #### VD25H #### [facility] [address] [place] [address] Urea nitrogen mass conc 30 mg/dL High 7-20 [facility] Comment on above: Performed By: #### H EMDF, PT, BMP3M, PHOS3, MG3, CK3 #### [address] #### VD25H #### [facility] [address] [place] [address] Chloride molar conc 95 mmol/L Low 98-107 [facility] Comment on above: Performed By: #### H EMDF, PT, BMP3M, PHOS3, MG3, CK3 #### [facility] [address] [place] #### VD25H #### [facility] [address] [place] [address] Potassium molar conc 3.3 mmol/L Low 3.5-5.1 [facility] Comment on above: Performed By: #### H EMDF, PT, BMP3M, PHOS3, MG3, CK3 #### [address] #### VD25H #### [facility] [address] [place] [address] Sodium molar conc 141 mmol/L Normal 135-145 [facility] Comment on above: Performed By: #### H EMDF, PT, BMP3M, PHOS3, MG3, CK3 #### [address] #### VD25H #### [facility] [address] [place] [address] CR Chest Portableon 07-30-19 19 CR Chest Portable Patient Name: KATHYA HOOPER Diagnostic Radiology Exam Date/Time 07/29/2018 07:01:44 EDT Exam CR Chest Portable Ordering Physician MARIA EUGENIA PEREZ Accession Number [id number] CPT4 Codes 85761 () Reason For Exam ETT placement Report [...] Transcribed Date and Time: 07/29/2018 9:04 Normal [facility] Glucose,Bedsideon 07-29-2018 Glucose mass conc 124 mg/dL High 70-100 [facility] Comment on above: Result Comment: Test performed by glucose meter. Results may be 10%-15% lower than serum/plasma values. (CLIA ID [id number]) Performed By: #### H EMDF, PT, BMP3M, PHOS3, MG3, CK3 #### [facility] [address] [place] [address] #### VD25H #### [facility] [address] [place] [address] Glucose mass conc 175 mg/dL High 70-100 [facility] Comment on above: Result Comment: Test performed by glucose meter. Results may be 10%-15% lower than serum/plasma values. (CLIA ID [id number]) Performed By: #### H EMDF, PT, BMP3M, PHOS3, MG3, CK3 #### [facility] [address] [place] [address] #### VD25H #### [facility] [address] [place] [address] Glucose mass conc 138 mg/dL High 70-100 [facility] Comment on above: Result Comment: Test performed by glucose meter. Results may be 10%-15% lower than serum/plasma values. (CLIA ID [id number]) Performed By: #### H EMDF, PT, BMP3M, PHOS3, MG3, CK3 #### [facility] [address] [place] [address] #### VD25H #### [employer] [facility] [address] [place] [address] Glucose mass conc 147 mg/dL High 70-100 [facility] Comment on above: Result Comment: Test performed by glucose meter. Results may be 10%-15% lower than serum/plasma values. (CLIA ID [id number]) Performed By: #### H EMDF, PT, BMP3M, PHOS3, MG3, CK3 #### [address] #### VD25H #### [facility] [address] [place] [place] [address] Hemogram w/ Autodiffon 07-29 Erythrocyte distribution width Ratio (RBC) 13.8 % Normal 11.5-14.5 [facility] Comment on above: Performed By: #### H EMDF, PT, BMP3M, PHOS3, MG3, CK3 #### [address] #### VD25H #### [facility] [address] [place] [place] [address] Hematocrit Volume Fraction (Bld) 32.9 % Low 40.0-52.0 [facility] Comment on above: Performed By: #### H EMDF, PT, BMP3M, PHOS3, MG3, CK3 #### [address] #### VD25H #### [facility] [address] [place] [place] [address] Hemoglobin mass conc (Bld) 11.0 g/dL Low 13.0-18.0 [facility] Comment on above: Performed By: #### H EMDF, PT, BMP3M, PHOS3, MG3, CK3 #### [address] #### VD25H #### [facility] [address] [facility] [address] MCH Entitic mass (RBC) 29.0 pg Normal 26.0-34.0 [facility] Comment on above: Performed By: #### H EMDF, PT, BMP3M, PHOS3, MG3, CK3 #### [address] #### VD25H #### [facility] [address] [place] [address] MCHC mass conc (RBC) 33.6 % Normal 32.0-36.0 [facility] Comment on above: Performed By: #### H EMDF, PT, BMP3M, PHOS3, MG3, CK3 #### [address] #### VD25H #### [facility] [address] [place] [address] MCV Entitic volume (RBC) 86.3 fL Normal 80.0-98.0 [facility] Comment on above: Performed By: #### H EMDF, PT, BMP3M, PHOS3, MG3, CK3 #### [address] #### VD25H #### [facility] [address] [place] [address] Platelet mean volume Entitic volume (Bld) 8.1 fL Normal 7.4-10.4 [facility] Comment on above: Performed By: #### H EMDF, PT, BMP3M, PHOS3, MG3, CK3 #### [address] #### VD25H #### [facility] [address] [place] [address] Platelets #/vol (Bld) 501 10*3/uL High 140-440 [facility] Comment on above: Performed By: #### H EMDF, PT, BMP3M, PHOS3, MG3, CK3 #### [address] #### VD25H #### [facility] [address] [place] [address] RBC #/vol (Bld) 3.81 10*6/uL Low 4.40-5.90 [facility] Comment on above: Performed By: #### H EMDF, PT, BMP3M, PHOS3, MG3, CK3 #### [place] [address] [place], [place] #### VD25H #### [facility] [address] [place] [address] WBC #/vol (Bld) 20.8 10*3/uL High 3.6-10.7 [facility] Comment on above: Performed By: #### H EMDF, PT, BMP3M, PHOS3, MG3, CK3 #### [address] [place], [place] #### VD25H #### [facility] [address] [place] [address] Magnesiumon 07-29-2018 Magnesium mass conc 2.5 mg/dL High 1.6-2.3 [facility] Comment on above: Performed By: #### H EMDF, PT, BMP3M, PHOS3, MG3, CK3 #### [address] [place], [place] #### VD25H #### [facility] [address] [place] [address] Manual Diffon 07-29-2018 Abs Neutrophile Cnt 17.3 10*3/uL High 2.2-8.2 [facility] Comment on above: Performed By: #### H EMDF, PT, BMP3M, PHOS3, MG3, CK3 #### [address] [place], [place] #### VD25H #### [facility] [address] [place] [address] Bands 1 % Normal 0-3 [facility] Comment on above: Performed By: #### H EMDF, PT, BMP3M, PHOS3, MG3, CK3 #### [address] #### VD25H #### [facility] [address] [place] [address] Eosinophils #/vol (Bld) 0.6 10*3/uL High 0.0-0.5 [facility] Comment on above: Performed By: #### H EMDF, PT, BMP3M, PHOS3, MG3, CK3 #### [facility] [address] [place] #### VD25H #### [facility] [address] [place] [address] Eosinophils/100 WBC (Bld) 3 % Normal 1-6 [facility] Comment on above: Performed By: #### H EMDF, PT, BMP3M, PHOS3, MG3, CK3 #### [place] [address] [place], [place] #### VD25H #### [facility] [address] [place] [address] Lymphocytes #/vol (Bld) 2.3 10*3/uL Normal 1.1-4.5 [facility] Comment on above: Performed By: #### H EMDF, PT, BMP3M, PHOS3, MG3, CK3 #### [place] [address] [place], [place] #### VD25H #### [facility] [address] [place] [address] Lymphocytes/100 WBC (Bld) 11 % Low 20-40 [facility] Comment on above: Performed By: #### H EMDF, PT, BMP3M, PHOS3, MG3, CK3 #### [place] [address] [place], [place] #### VD25H #### [facility] [address] [place] [address] Metamyelocytes 1 % Abnormal <1 [facility] Comment on above: Performed By: #### H EMDF, PT, BMP3M, PHOS3, MG3, CK3 #### [place] [address] [place] #### VD25H #### [facility] [address] [place] [address] Monocytes #/vol (Bld) 0.4 10*3/uL Normal 0.2-1.1 [facility] Comment on above: Performed By: #### H EMDF, PT, BMP3M, PHOS3, MG3, CK3 #### [place] [address] [place] #### VD25H #### [facility] [address] [place] [address] Monocytes/100 WBC (Bld) 2 % Normal 2-10 [facility] Comment on above: Performed By: #### H EMDF, PT, BMP3M, PHOS3, MG3, CK3 #### [place] [address] [place], [place] #### VD25H #### [facility] [address] [place] [address] RBC morphology finding Nom (Bld) See Prev Normal [facility] Comment on above: Performed By: #### H EMDF, PT, BMP3M, PHOS3, MG3, CK3 #### [address] #### VD25H #### [facility] [address] [place] [address] Seg Neutrophils 82 % High 40-80 [facility] Comment on above: Performed By: #### H EMDF, PT, BMP3M, PHOS3, MG3, CK3 #### [place] [address] [place] #### VD25H #### [facility] [address] [place] [address] Abs Baso Cnt 0.0 10*3/uL Normal 0.0-0.2 [facility] Comment on above: Performed By: #### H EMDF, PT, BMP3M, PHOS3, MG3, CK3 #### [address] [place] #### VD25H #### [facility] [address] [place] [address] Basophils/100 WBC (Bld) 0 % Normal 0-2 [facility] Comment on above: Performed By: #### H EMDF, PT, BMP3M, PHOS3, MG3, CK3 #### [address] #### VD25H #### [facility] [address] [place] [address] Cells counted 100 Normal [facility] Comment on above: Performed By: #### H EMDF, PT, BMP3M, PHOS3, MG3, CK3 #### [address] #### VD25H #### [place] [address] [place] [address] Phosphoruson 07-29-2018 Phosphate mass conc 4.2 mg/dL Normal 2.5-4.5 [facility] Comment on above: Performed By: #### H EMDF, PT, BMP3M, PHOS3, MG3, CK3 #### [address] #### VD25H #### [address] [place] [address] Procalcitoninon 07-29-2018 Protein mass conc 0.11 ng/mL Abnormal <0.10 [facility] Comment on above: Performed By: #### H EMDF, PT, BMP3M, PHOS3, MG3, CK3 #### [address] #### VD25H #### [address] [place] [address] Interpretation See Below Normal [facility] Comment on above: Result Comment: PCT <0.50 = Low risk of severe sepsis and/or septic shock. PCT >2.00 = High risk of severe sepsis and/or septic shock. Performed By: #### H EMDF, PT, BMP3M, PHOS3, MG3, CK3 #### [address] #### VD25H #### [place] [address] [place] [address] Vancomycin Troughon 03-31-20 19 Vancomycin Trough 12.2 ug/mL Low 15.0-20.0 [facility] Comment on above: Result Comment: . Performed By: #### H EMDF, PT, BMP3M, PHOS3, MG3, CK3 #### [facility] [address] [place], [place] #### VD25H #### [facility] [address] [place] [address] Basic Metabolic Panelon 07-01 Calcium mass conc 8.6 mg/dL Normal 8.4-10.4 [facility] Comment on above: Performed By: #### H EMDF, PT, BMP3M, PHOS3, MG3, CK3 #### [place] [address] [place] #### VD25H #### [facility] [address] [place] [address] Glucose mass conc 158 mg/dL High 70-100 [facility] Comment on above: Performed By: #### H EMDF, PT, BMP3M, PHOS3, MG3, CK3 #### [place] [address] [place] #### VD25H #### [facility] [address] [place] [address] Urea nitrogen mass conc 29 mg/dL High 7-20 [facility] Comment on above: Performed By: #### H EMDF, PT, BMP3M, PHOS3, MG3, CK3 #### [place] [address] [place] #### VD25H #### [facility] [address] [place] [address] Anion gap molar conc 9 Normal [facility] Comment on above: Performed By: #### H EMDF, PT, BMP3M, PHOS3, MG3, CK3 #### [place] [address] [place], [place] #### VD25H #### [facility] [address] [place] [address] CO2 molar conc 32 mmol/L High 22-30 [facility] Comment on above: Performed By: #### H EMDF, PT, BMP3M, PHOS3, MG3, CK3 #### [address] [address] #### VD25H #### [facility] [address] [place] [address] Creatinine mass conc 0.61 mg/dL Normal 0.52-1.25 [facility] Comment on above: Performed By: #### H EMDF, PT, BMP3M, PHOS3, MG3, CK3 #### [address] #### VD25H #### [facility] [address] [place] [address] GFR/1.73 sq M predicted among blacks MDRD vol rate/area (S/P/Bld) mL/min/{1.73_m2} Normal >60 [facility] Comment on above: Performed By: #### H EMDF, PT, BMP3M, PHOS3, MG3, CK3 #### [address] [address] #### VD25H #### [facility] [address] [place] [address] GFR/1.73 sq M predicted among non-blacks MDRD vol rate/area (S/P/Bld) mL/min/{1.73_m2} Normal >60 [facility] Comment on above: Result Comment: Sour ce- MDRD equation with creatinine calibration to IDMS(NKDEP) eGFR not recommended for drug dose adjustment Performed By: #### H EMDF, PT, BMP3M, PHOS3, MG3, CK3 #### [address] [address] #### VD25H #### [facility] [address] [place] [address] Potassium molar conc 3.6 mmol/L Normal 3.5-5.1 [facility] Comment on above: Performed By: #### H EMDF, PT, BMP3M, PHOS3, MG3, CK3 #### [facility] [address] [place] [place] [address] #### VD25H #### [facility] [address] [place] [address] Chloride molar conc 100 mmol/L Normal 98-107 [facility] Comment on above: Performed By: #### H EMDF, PT, BMP3M, PHOS3, MG3, CK3 #### [facility] [address] [place] [facility] [address] #### VD25H #### [facility] [address] [place] [address] Sodium molar conc 141 mmol/L Normal 135-145 [facility] Comment on above: Performed By: #### H EMDF, PT, BMP3M, PHOS3, MG3, CK3 #### [facility] [address] [place] [address] #### VD25H #### [facility] [address] [place] [address] CR Chest Portableon 07-29-19 19 CR Chest Portable Patient Name: KATHYA HOOPER Diagnostic Radiology Exam Date/Time 07/28/2018 07:09:40 EDT Exam CR Chest Portable Ordering Physician MARIA EUGENIA PEREZ Accession Number [id number] CPT4 Codes 32337 () Reason For Exam ETT placement Report [...] Glucose mass conc 149 mg/dL High 70-100 [facility] Comment on above: Result Comment: Test performed by glucose meter. Results may be 10%-15% lower than serum/plasma values. (CLIA ID [id number]) Performed By: #### H EMDF, PT, BMP3M, PHOS3, MG3, CK3 #### [facility] [address] [place], [place] #### VD25H #### [facility] [address] [place] [address] Glucose mass conc 142 mg/dL High 70-100 [facility] Comment on above: Result Comment: Test performed by glucose meter. Results may be 10%-15% lower than serum/plasma values. (CLIA ID [id number]) Performed By: #### H EMDF, PT, BMP3M, PHOS3, MG3, CK3 #### [facility] [address] #### VD25H #### [facility] [address] [place] [address] Hemogram w/ Autodiffon 07-28 Erythrocyte distribution width Ratio (RBC) 13.8 % Normal 11.5-14.5 [facility] [employer] Comment on above: Performed By: #### H EMDF, PT, BMP3M, PHOS3, MG3, CK3 #### [facility] [employer] [address] [place], [place] #### VD25H #### [facility] [address] [place] [address] Hematocrit Volume Fraction (Bld) 33.0 % Low 40.0-52.0 [facility] Comment on above: Performed By: #### H EMDF, PT, BMP3M, PHOS3, MG3, CK3 #### [facility] [place] [address] [place] [address] #### VD25H #### [place] [address] [place] [address] Hemoglobin mass conc (Bld) 11.0 g/dL Low 13.0-18.0 [facility] Comment on above: Performed By: #### H EMDF, PT, BMP3M, PHOS3, MG3, CK3 #### [address] #### VD25H #### [place] [address] [place] [address] MCH Entitic mass (RBC) 28.7 pg Normal 26.0-34.0 [facility] Comment on above: Performed By: #### H EMDF, PT, BMP3M, PHOS3, MG3, CK3 #### [address] #### VD25H #### [place] [address] [place] [address] MCHC mass conc (RBC) 33.4 % Normal 32.0-36.0 [facility] Comment on above: Performed By: #### H EMDF, PT, BMP3M, PHOS3, MG3, CK3 #### [address] #### VD25H #### [address] [place] [address] MCV Entitic volume (RBC) 86.0 fL Normal 80.0-98.0 [facility] Comment on above: Performed By: #### H EMDF, PT, BMP3M, PHOS3, MG3, CK3 #### [address] #### VD25H #### [address] [facility] [address] Platelet mean volume Entitic volume (Bld) 8.4 fL Normal 7.4-10.4 [facility] Comment on above: Performed By: #### H EMDF, PT, BMP3M, PHOS3, MG3, CK3 #### [address] #### VD25H #### [facility] [address] [place] [address] Platelets #/vol (Bld) 477 10*3/uL High 140-440 [facility] Comment on above: Performed By: #### H EMDF, PT, BMP3M, PHOS3, MG3, CK3 #### [facility] [address] [place], [place] #### VD25H #### [facility] [address] [place] [address] RBC #/vol (Bld) 3.84 10*6/uL Low 4.40-5.90 [facility] Comment on above: Performed By: #### H EMDF, PT, BMP3M, PHOS3, MG3, CK3 #### [address] [place], [place] #### VD25H #### [facility] [address] [place] [address] WBC #/vol (Bld) 18.1 10*3/uL High 3.6-10.7 [facility] Comment on above: Performed By: #### H EMDF, PT, BMP3M, PHOS3, MG3, CK3 #### [place] [address] [place], [place] #### VD25H #### [facility] [address] [place] [address] Magnesiumon 07-28-2018 Magnesium mass conc 2.4 mg/dL High 1.6-2.3 [facility] Comment on above: Performed By: #### H EMDF, PT, BMP3M, PHOS3, MG3, CK3 #### [address] [place], [place] #### VD25H #### [facility] [address] [place] [address] Manual Diffon 07-28-2018 Abs Neutrophile Cnt 14.8 10*3/uL High 2.2-8.2 [facility] Comment on above: Performed By: #### H EMDF, PT, BMP3M, PHOS3, MG3, CK3 #### [address] [place], [place] #### VD25H #### [facility] [address] [place] [address] Anisocytosis Ql (Bld) Slight Normal [facility] Comment on above: Performed By: #### H EMDF, PT, BMP3M, PHOS3, MG3, CK3 #### [place] [address] [place], [place] #### VD25H #### [facility] [address] [place] [address] Hypochromia Slight Normal [facility] Comment on above: Performed By: #### H EMDF, PT, BMP3M, PHOS3, MG3, CK3 #### [address] #### VD25H #### [facility] [address] [place] [address] Lymphocytes #/vol (Bld) 1.3 10*3/uL Normal 1.1-4.5 [facility] Comment on above: Performed By: #### H EMDF, PT, BMP3M, PHOS3, MG3, CK3 #### [address] #### [id number] #### [facility] [address] [place] [address] Lymphocytes/100 WBC (Bld) 7 % Low 20-40 [facility] Comment on above: Performed By: #### H EMDF, PT, BMP3M, PHOS3, MG3, CK3 #### [address] #### [id number] #### [facility] [address] [place] [address] Microcytosis Slight Normal [facility] Comment on above: Performed By: #### H EMDF, PT, BMP3M, PHOS3, MG3, CK3 #### [address] [place] #### VD25H #### [facility] [address] [place] [address] Monocytes #/vol (Bld) 2.0 10*3/uL High 0.2-1.1 [facility] Comment on above: Performed By: #### H EMDF, PT, BMP3M, PHOS3, MG3, CK3 #### [place] [address] [place], [place] #### VD25H #### [facility] [address] [place] [address] Monocytes/100 WBC (Bld) 11 % High 2-10 [facility] Comment on above: Performed By: #### H EMDF, PT, BMP3M, PHOS3, MG3, CK3 #### [address] #### VD25H #### [facility] [address] [place] [address] RBC morphology finding Nom (Bld) ABNORMAL Normal [facility] Comment on above: Performed By: #### H EMDF, PT, BMP3M, PHOS3, MG3, CK3 #### [address] #### VD25H #### [facility] [address] [place] [address] Seg Neutrophils 82 % High 40-80 [facility] Comment on above: Performed By: #### H EMDF, PT, BMP3M, PHOS3, MG3, CK3 #### [address] #### VD25H #### [facility] [address] [place] [address] Abs Baso Cnt 0.0 10*3/uL Normal 0.0-0.2 [facility] Comment on above: Performed By: #### H EMDF, PT, BMP3M, PHOS3, MG3, CK3 #### [address] #### VD25H #### [facility] [address] [place] [address] Bands 0 % Normal 0-3 [facility] Comment on above: Performed By: #### H EMDF, PT, BMP3M, PHOS3, MG3, CK3 #### [facility] [address] [place] #### VD25H #### [facility] [address] [place] [address] Basophils/100 WBC (Bld) 0 % Normal 0-2 [facility] Comment on above: Performed By: #### H EMDF, PT, BMP3M, PHOS3, MG3, CK3 #### [place] [address] [place], [place] #### VD25H #### [facility] [address] [place] [address] Cells counted 100 Normal [facility] Comment on above: Performed By: #### H EMDF, PT, BMP3M, PHOS3, MG3, CK3 #### [place] [address] [place], [place] #### VD25H #### [facility] [address] [place] [address] Eosinophils #/vol (Bld) 0.0 10*3/uL Normal 0.0-0.5 [facility] Comment on above: Performed By: #### H EMDF, PT, BMP3M, PHOS3, MG3, CK3 #### [facility] [address] [facility], [place] #### VD25H #### [facility] [address] [place] [address] Eosinophils/100 WBC (Bld) 0 % Low 1-6 [facility] Comment on above: Performed By: #### H EMDF, PT, BMP3M, PHOS3, MG3, CK3 #### [facility] [address] [place] #### VD25H #### [facility] [address] [place] [address] Phosphoruson 07-28-2018 Phosphate mass conc 4.4 mg/dL Normal 2.5-4.5 [facility] Comment on above: Performed By: #### H EMDF, PT, BMP3M, PHOS3, MG3, CK3 #### [address] #### VD25H #### [facility] [address] [place] [address] Vancomycin Troughon 07-29-19 19 Vancomycin Trough 12.9 ug/mL Low 15.0-20.0 [facility] Comment on above: Result Comment: . Performed By: #### H EMDF, PT, BMP3M, PHOS3, MG3, CK3 #### [address] #### VD25H #### [facility] [address] [place] [address] Arterial Blood Gaseson 07-27 CO2 molar conc 28.4 mmol/L High 23.0-27.0 [facility] Comment on above: Performed By: #### H EMDF, PT, BMP3M, PHOS3, MG3, CK3 #### [address] #### VD25H #### [place] [address] [place] [address] HCO3 molar conc (Bld) 27.2 mmol/L High 21.0-25.0 [facility] Comment on above: Performed By: #### H EMDF, PT, BMP3M, PHOS3, MG3, CK3 #### [address] #### VD25H #### [facility] [address] [place] [address] Hemoglobin mass conc (Bld) 11.7 g/dL Normal [facility] Comment on above: Performed By: #### H EMDF, PT, BMP3M, PHOS3, MG3, CK3 #### [address], [place] #### VD25H #### [facility] [address] [place] [address] Oxygen ppres (Bld) 91.3 mm[Hg] Normal 80.0-100.0 [facility] Comment on above: Performed By: #### H EMDF, PT, BMP3M, PHOS3, MG3, CK3 #### [address] [facility], [place] #### VD25H #### [facility] [address] [place] [address] Oxygen saturation in Blood 96.9 % Normal 95.0-100.0 [facility] Comment on above: Performed By: #### H EMDF, PT, BMP3M, PHOS3, MG3, CK3 #### [address] #### VD25H #### [place] [address] [place] [address] pCO2 39.0 mm[Hg] Normal 35.0-45.0 [facility] Comment on above: Performed By: #### H EMDF, PT, BMP3M, PHOS3, MG3, CK3 #### [address], [place] #### VD25H #### [place] [address] [place] [address] pH (Bld) 7.461 High 7.350-7.450 [facility] Comment on above: Performed By: #### H EMDF, PT, BMP3M, PHOS3, MG3, CK3 #### [address] #### VD25H #### [facility] [address] [place] [address] Std Base Excess 3.2 mmol/L High -3.0-3.0 [facility] Comment on above: Performed By: #### H EMDF, PT, BMP3M, PHOS3, MG3, CK3 #### [address] [place], [place] #### VD25H #### [facility] [address] [place] [address] FIO2 No data Normal [facility] Comment on above: Performed By: #### H EMDF, PT, BMP3M, PHOS3, MG3, CK3 #### [place] [address] [place], [place] #### VD25H #### [facility] [address] [place] [address] Basic Metabolic Panelon - Anion gap molar conc 12 Normal [facility] Comment on above: Performed By: #### H EMDF, PT, BMP3M, PHOS3, MG3, CK3 #### [place] [address] [address] [place], [place] #### VD25H #### [facility] [address] [place] [address] Calcium mass conc 8.3 mg/dL Low 8.4-10.4 [facility] Comment on above: Performed By: #### H EMDF, PT, BMP3M, PHOS3, MG3, CK3 #### [place] [address] [place], [place] #### VD25H #### [facility] [address] [place] [address] CO2 molar conc 28 mmol/L Normal 22-30 [facility] Comment on above: Performed By: #### H EMDF, PT, BMP3M, PHOS3, MG3, CK3 #### [place] [address] [place], [place] #### VD25H #### [facility] [address] [facility] [address] Glucose mass conc 156 mg/dL High 70-100 [facility] Comment on above: Performed By: #### H EMDF, PT, BMP3M, PHOS3, MG3, CK3 #### [place] [address] [address] [place], [place] #### VD25H #### [facility] [address] [place] [address] Urea nitrogen mass conc 21 mg/dL High 7-20 [facility] Comment on above: Performed By: #### H EMDF, PT, BMP3M, PHOS3, MG3, CK3 #### [facility] [address] [place], [place] #### VD25H #### [facility] [address] [place] [address] Creatinine mass conc 0.53 mg/dL Normal 0.52-1.25 [facility] Comment on above: Performed By: #### H EMDF, PT, BMP3M, PHOS3, MG3, CK3 #### [address] #### VD25H #### [facility] [address] [place] [address] GFR/1.73 sq M predicted among blacks MDRD vol rate/area (S/P/Bld) mL/min/{1.73_m2} Normal >60 [facility] Comment on above: Performed By: #### H EMDF, PT, BMP3M, PHOS3, MG3, CK3 #### [address] #### VD25H #### [facility] [address] [place] [address] GFR/1.73 sq M predicted among non-blacks MDRD vol rate/area (S/P/Bld) mL/min/{1.73_m2} Normal >60 [facility] Comment on above: Result Comment: Sour ce- MDRD equation with creatinine calibration to IDMS(NKDEP) eGFR not recommended for drug dose adjustment Performed By: #### H EMDF, PT, BMP3M, PHOS3, MG3, CK3 #### [address] #### VD25H #### [facility] [address] [place] [address] Potassium molar conc 3.2 mmol/L Low 3.5-5.1 [facility] Comment on above: Performed By: #### H EMDF, PT, BMP3M, PHOS3, MG3, CK3 #### [facility] [address] [place] [address] #### VD25H #### [facility] [address] [place] [address] Chloride molar conc 99 mmol/L Normal 98-107 [facility] Comment on above: Performed By: #### H EMDF, PT, BMP3M, PHOS3, MG3, CK3 #### [facility] [address] [place] [address] #### VD25H #### [facility] [address] [place] [address] Sodium molar conc 139 mmol/L Normal 135-145 [facility] Comment on above: Performed By: #### H EMDF, PT, BMP3M, PHOS3, MG3, CK3 #### [facility] [address] [place] [address] #### VD25H #### [facility] [address] [place] [address] CR Chest Portableon 07-28-19 19 CR Chest Portable Patient Name: KATHYA HOOPER Diagnostic Radiology Exam Date/Time 07/27/2018 07:08:59 EDT Exam CR Chest Portable Ordering Physician MARIA EUGENIA PEREZ Accession Number [id number] CPT4 Codes 17450 () Reason For Exam ETT placement Report [...] Transcribed Date and Time: 07/27/2018 8:02 Normal [facility] [employer] Glucose,Bedsideon 07-27-2018 Glucose mass conc 151 mg/dL High 70-100 [facility] Comment on above: Result Comment: Test performed by glucose meter. Results may be 10%-15% lower than serum/plasma values. (CLIA ID [id number]) Performed By: #### H EMDF, PT, BMP3M, PHOS3, MG3, CK3 #### [facility] [address] [place], [place] #### VD25H #### [facility] [address] [place] [address] Glucose mass conc 131 mg/dL High 70-100 [facility] Comment on above: Result Comment: Test performed by glucose meter. Results may be 10%-15% lower than serum/plasma values. (CLIA ID [id number]) Performed By: #### H EMDF, PT, BMP3M, PHOS3, MG3, CK3 #### [facility] [address] [place], [place] #### VD25H #### [facility] [address] [place] [address] Glucose mass conc 123 mg/dL High 70-100 [facility] Comment on above: Result Comment: Test performed by glucose meter. Results may be 10%-15% lower than serum/plasma values. (CLIA ID [id number]) Performed By: #### H EMDF, PT, BMP3M, PHOS3, MG3, CK3 #### [facility] [address] [place] [address] #### VD25H #### [facility] [address] [place] [address] Glucose mass conc 133 mg/dL High 70-100 [facility] Comment on above: Result Comment: Test performed by glucose meter. Results may be 10%-15% lower than serum/plasma values. (CLIA ID [id number]) Performed By: #### H EMDF, PT, BMP3M, PHOS3, MG3, CK3 #### [place] [address] [place], [place] #### VD25H #### [facility] [address] [place] [address] Hemogram w/ Autodiffon 07-27 Erythrocyte distribution width Ratio (RBC) 13.5 % Normal 11.5-14.5 [facility] Comment on above: Performed By: #### H EMDF, PT, BMP3M, PHOS3, MG3, CK3 #### [address] #### VD25H #### [place] [address] [facility] [address] Hematocrit Volume Fraction (Bld) 32.5 % Low 40.0-52.0 [facility] Comment on above: Performed By: #### H EMDF, PT, BMP3M, PHOS3, MG3, CK3 #### [address] #### VD25H #### [facility] [address] [facility] [address] Hemoglobin mass conc (Bld) 11.1 g/dL Low 13.0-18.0 [facility] Comment on above: Performed By: #### H EMDF, PT, BMP3M, PHOS3, MG3, CK3 #### [address] #### VD25H #### [facility] [address] [place] [address] MCH Entitic mass (RBC) 29.2 pg Normal 26.0-34.0 [facility] Comment on above: Performed By: #### H EMDF, PT, BMP3M, PHOS3, MG3, CK3 #### [address] #### VD25H #### [place] [address] [place] [address] MCHC mass conc (RBC) 34.1 % Normal 32.0-36.0 [facility] Comment on above: Performed By: #### H EMDF, PT, BMP3M, PHOS3, MG3, CK3 #### [address] #### VD25H #### [facility] [address] [place] [address] MCV Entitic volume (RBC) 85.7 fL Normal 80.0-98.0 [facility] Comment on above: Performed By: #### H EMDF, PT, BMP3M, PHOS3, MG3, CK3 #### [address] #### VD25H #### [place] [address] [place] [address] Platelet mean volume Entitic volume (Bld) 7.9 fL Normal 7.4-10.4 [facility] Comment on above: Performed By: #### H EMDF, PT, BMP3M, PHOS3, MG3, CK3 #### [address] #### VD25H #### [facility] [address] [place] [address] Platelets #/vol (Bld) 466 10*3/uL High 140-440 [facility] Comment on above: Performed By: #### H EMDF, PT, BMP3M, PHOS3, MG3, CK3 #### [address] #### VD25H #### [facility] [address] [place] [address] RBC #/vol (Bld) 3.79 10*6/uL Low 4.40-5.90 [facility] Comment on above: Performed By: #### H EMDF, PT, BMP3M, PHOS3, MG3, CK3 #### [address] #### VD25H #### [facility] [address] [place] [address] WBC #/vol (Bld) 18.7 10*3/uL High 3.6-10.7 [facility] Comment on above: Performed By: #### H EMDF, PT, BMP3M, PHOS3, MG3, CK3 #### [address] #### VD25H #### [facility] [address] [place] [address] Magnesiumon 07-27-2018 Magnesium mass conc 2.1 mg/dL Normal 1.6-2.3 [facility] Comment on above: Performed By: #### H EMDF, PT, BMP3M, PHOS3, MG3, CK3 #### [address] #### VD25H #### [place] [address] [place] [address] Manual Diffon 07-27-2018 RBC morphology finding Nom (Bld) Normal Normal [facility] Comment on above: Performed By: #### H EMDF, PT, BMP3M, PHOS3, MG3, CK3 #### [address] #### VD25H #### [place] [address] [place] [address] Abs Neutrophile Cnt 14.2 10*3/uL High 2.2-8.2 [facility] Comment on above: Performed By: #### H EMDF, PT, BMP3M, PHOS3, MG3, CK3 #### [address] #### VD25H #### [address] [place] [address] Atypical Lymphocytes 2 % Abnormal <1 [facility] Comment on above: Performed By: #### H EMDF, PT, BMP3M, PHOS3, MG3, CK3 #### [address] #### VD25H #### [facility] [address] [place] [address] Bands 5 % High 0-3 [facility] Comment on above: Performed By: #### H EMDF, PT, BMP3M, PHOS3, MG3, CK3 #### [facility] [address] [place] #### VD25H #### [facility] [address] [place] [address] Eosinophils #/vol (Bld) 0.6 10*3/uL High 0.0-0.5 [facility] Comment on above: Performed By: #### H EMDF, PT, BMP3M, PHOS3, MG3, CK3 #### [place] [address] [place], [place] #### VD25H #### [facility] [address] [place] [address] Eosinophils/100 WBC (Bld) 3 % Normal 1-6 [facility] Comment on above: Performed By: #### H EMDF, PT, BMP3M, PHOS3, MG3, CK3 #### [facility] [address] [place], [place] #### VD25H #### [facility] [address] [place] [address] Lymphocytes #/vol (Bld) 2.1 10*3/uL Normal 1.1-4.5 [facility] Comment on above: Performed By: #### H EMDF, PT, BMP3M, PHOS3, MG3, CK3 #### [facility] [address] [place], [place] #### VD25H #### [facility] [address] [place] [address] Lymphocytes/100 WBC (Bld) 11 % Low 20-40 [facility] Comment on above: Performed By: #### H EMDF, PT, BMP3M, PHOS3, MG3, CK3 #### [place] [address] [place], [place] #### VD25H #### [facility] [address] [place] [address] Monocytes #/vol (Bld) 1.5 10*3/uL High 0.2-1.1 [facility] Comment on above: Performed By: #### H EMDF, PT, BMP3M, PHOS3, MG3, CK3 #### [place] [address] [place], [place] #### VD25H #### [facility] [address] [place] [address] Monocytes/100 WBC (Bld) 8 % Normal 2-10 [facility] Comment on above: Performed By: #### H EMDF, PT, BMP3M, PHOS3, MG3, CK3 #### [address] #### VD25H #### [place] [address] [place] [address] NRBC 1 /100{WBCs} High -1-0 [facility] Comment on above: Result Comment: Newb orn (<60 days) 1-10 Adult <1 Performed By: #### H EMDF, PT, BMP3M, PHOS3, MG3, CK3 #### [address] #### VD25H #### [place] [address] [place] [address] Seg Neutrophils 71 % Normal 40-80 [facility] Comment on above: Performed By: #### H EMDF, PT, BMP3M, PHOS3, MG3, CK3 #### [address] #### VD25H #### [facility] [address] [place] [address] Abs Baso Cnt 0.0 10*3/uL Normal 0.0-0.2 [facility] Comment on above: Performed By: #### H EMDF, PT, BMP3M, PHOS3, MG3, CK3 #### [address] [place], [place] #### VD25H #### [facility] [address] [place] [address] Basophils/100 WBC (Bld) 0 % Normal 0-2 [facility] Comment on above: Performed By: #### H EMDF, PT, BMP3M, PHOS3, MG3, CK3 #### [facility] [address] [place] #### VD25H #### [facility] [address] [place] [address] Cells counted 100 Normal [facility] Comment on above: Performed By: #### H EMDF, PT, BMP3M, PHOS3, MG3, CK3 #### [facility] [address] [place] #### VD25H #### [facility] [address] [facility] [address] Phosphoruson 07-27-2018 Phosphate mass conc 3.0 mg/dL Normal 2.5-4.5 [facility] Comment on above: Performed By: #### H EMDF, PT, BMP3M, PHOS3, MG3, CK3 #### [facility] [address] [place], [place] #### VD25H #### [facility] [address] [facility] [place] [address] VL Venous Duplex US Lower Ex t Bilateralon 07-27-2018 VL Venous Duplex US Lower Ext Bilateral Patient Name: KATHYA HOOPER Ultrasound Exam Date/Time 07/27/2018 10:56:18 EDT Exam VL Venous Duplex US Lower Ext Bilateral Ordering Physician ETIENNE MARTÍNEZ JULIE Accession Number [id number] CPT4 Codes 43525 () Reason For Exam edema Report [facility] --- Lower Extremity Venous Duplex Report Patient Name: Kathya Hooper : 1955 Study Date: 07/27/2018 W (63yrs) Age: 63 Account: [id number] Gender: M Loc: [id number] BP: Ordering: Yesenia Martínez Technologist: Ordering Physician: Yesenia Martínez Calculation Clerk: Mary Man Lissette Interpreting Physician: Ricardo Hall MD --- Location: [facility] --- INDICATIONS: Bilateral leg edema. --- CONCLUSIONS [...] performed. The images were obtained using a Insync E9 vascular ultrasound machine. The study was [...] --+ Electronically signed by: Ricardo Hall MD [id number] Final Dictated: 07/27/2018 12:55 pm Dictating Physician: RICARDO HALL Signed Date and Time: 07/27/2018 12:55 pm Signed by: RICARDO HALL Normal [facility] Basic Metabolic Panelon 06-30 Calcium mass conc 7.9 mg/dL Low 8.4-10.4 [employer] [facility] Comment on above: Performed By: #### H EMDF, PT, BMP3M, PHOS3, MG3, CK3 #### [facility] [address] [place], [place] #### VD25H #### [facility] [address] [place] [address] Anion gap molar conc 9 Normal [facility] Comment on above: Performed By: #### H EMDF, PT, BMP3M, PHOS3, MG3, CK3 #### [place] [address] [place], [place] #### VD25H #### [facility] [address] [place] [address] CO2 molar conc 24 mmol/L Normal 22-30 [facility] Comment on above: Performed By: #### H EMDF, PT, BMP3M, PHOS3, MG3, CK3 #### [address] #### VD25H #### [facility] [address] [place] [address] Creatinine mass conc 0.54 mg/dL Normal 0.52-1.25 [facility] Comment on above: Performed By: #### H EMDF, PT, BMP3M, PHOS3, MG3, CK3 #### [address] #### VD25H #### [facility] [address] [place] [address] GFR/1.73 sq M predicted among blacks MDRD vol rate/area (S/P/Bld) mL/min/{1.73_m2} Normal >60 [facility] Comment on above: Performed By: #### H EMDF, PT, BMP3M, PHOS3, MG3, CK3 #### [place] [address] [place], [place] #### VD25H #### [facility] [address] [place] [address] GFR/1.73 sq M predicted among non-blacks MDRD vol rate/area (S/P/Bld) mL/min/{1.73_m2} Normal >60 [facility] Comment on above: Result Comment: Sour ce- MDRD equation with creatinine calibration to IDMS(NKDEP) eGFR not recommended for drug dose adjustment Performed By: #### H EMDF, PT, BMP3M, PHOS3, MG3, CK3 #### [facility] [address] [facility], [place] #### VD25H #### [facility] [address] [place] [address] Glucose mass conc 166 mg/dL High 70-100 [facility] Comment on above: Performed By: #### H EMDF, PT, BMP3M, PHOS3, MG3, CK3 #### [facility] [address] [facility], [place] #### VD25H #### [facility] [address] [place] [address] Urea nitrogen mass conc 21 mg/dL High 7-20 [facility] Comment on above: Performed By: #### H EMDF, PT, BMP3M, PHOS3, MG3, CK3 #### [facility] [address] [facility], [place] #### VD25H #### [facility] [address] [place] [address] Chloride molar conc 107 mmol/L Normal 98-107 [facility] Comment on above: Performed By: #### H EMDF, PT, BMP3M, PHOS3, MG3, CK3 #### [facility] [address] [facility], [place] #### VD25H #### [facility] [address] [place] [address] Potassium molar conc 3.7 mmol/L Normal 3.5-5.1 [facility] Comment on above: Performed By: #### H EMDF, PT, BMP3M, PHOS3, MG3, CK3 #### [facility] [address] [facility], [place] #### VD25H #### [facility] [address] [place] [address] Sodium molar conc 140 mmol/L Normal 135-145 [facility] Comment on above: Performed By: #### H EMDF, PT, BMP3M, PHOS3, MG3, CK3 #### [facility] [address] [place], [place] #### VD25H #### [employer] [facility] [address] [place] [address] CR Chest Portableon 07-27-19 19 CR Chest Portable Patient Name: KATHYA HOOPER Diagnostic Radiology Exam Date/Time 07/26/2018 06:06:25 EDT Exam CR Chest Portable Ordering Physician MARIA EUGENIA PEREZ Accession Number [id number] CPT4 Codes 22633 () Reason For Exam ETT placement Report [...] Transcribed Date and Time: 07/26/2018 9:15 Normal [facility] [employer] Glucose,Bedsideon 07-26-2018 Glucose mass conc 160 mg/dL High 70-100 [facility] Comment on above: Result Comment: Test performed by glucose meter. Results may be 10%-15% lower than serum/plasma values. (CLIA ID [id number]) Performed By: #### H EMDF, PT, BMP3M, PHOS3, MG3, CK3 #### [facility] [address] [place], [place] #### VD25H #### [facility] [address] [place] [address] Glucose mass conc 166 mg/dL High 70-100 [facility] Comment on above: Result Comment: Test performed by glucose meter. Results may be 10%-15% lower than serum/plasma values. (CLIA ID [id number]) Performed By: #### H EMDF, PT, BMP3M, PHOS3, MG3, CK3 #### [facility] [address] [place], [place] #### VD25H #### [facility] [address] [place] [address] Glucose mass conc 183 mg/dL High 70-100 [facility] Comment on above: Result Comment: Test performed by glucose meter. Results may be 10%-15% lower than serum/plasma values. (CLIA ID [id number]) Performed By: #### H EMDF, PT, BMP3M, PHOS3, MG3, CK3 #### [facility] [address] [place] [address] #### VD25H #### [facility] [address] [place] [address] Glucose mass conc 151 mg/dL High 70-100 [facility] Comment on above: Result Comment: Test performed by glucose meter. Results may be 10%-15% lower than serum/plasma values. (CLIA ID [id number]) Performed By: #### H EMDF, PT, BMP3M, PHOS3, MG3, CK3 #### [facility] [address] [place], [place] #### VD25H #### [facility] [address] [place] [address] Hemogram w/ Autodiff[employer] 07-26 Erythrocyte distribution width Ratio (RBC) 13.7 % Normal 11.5-14.5 [facility] [employer] Comment on above: Performed By: #### H EMDF, PT, BMP3M, PHOS3, MG3, CK3 #### [facility] [place], [place] #### VD25H #### [facility] [address] [place] [address] Hematocrit Volume Fraction (Bld) 31.1 % Low 40.0-52.0 [facility] Comment on above: Performed By: #### H EMDF, PT, BMP3M, PHOS3, MG3, CK3 #### [address] #### VD25H #### [facility] [address] [place] [address] Hemoglobin mass conc (Bld) 10.6 g/dL Low 13.0-18.0 [facility] Comment on above: Performed By: #### H EMDF, PT, BMP3M, PHOS3, MG3, CK3 #### [address] #### VD25H #### [place] [address] [place] [address] MCH Entitic mass (RBC) 29.2 pg Normal 26.0-34.0 [facility] Comment on above: Performed By: #### H EMDF, PT, BMP3M, PHOS3, MG3, CK3 #### [address] #### VD25H #### [place] [address] [place] [address] MCHC mass conc (RBC) 34.0 % Normal 32.0-36.0 [facility] Comment on above: Performed By: #### H EMDF, PT, BMP3M, PHOS3, MG3, CK3 #### [address] #### VD25H #### [place] [address] [place] [address] MCV Entitic volume (RBC) 86.1 fL Normal 80.0-98.0 [facility] Comment on above: Performed By: #### H EMDF, PT, BMP3M, PHOS3, MG3, CK3 #### [address] #### VD25H #### [facility] [address] [place] [address] Platelet mean volume Entitic volume (Bld) 8.3 fL Normal 7.4-10.4 [facility] Comment on above: Performed By: #### H EMDF, PT, BMP3M, PHOS3, MG3, CK3 #### [address] #### VD25H #### [facility] [address] [place] [address] Platelets #/vol (Bld) 364 10*3/uL Normal 140-440 [facility] Comment on above: Performed By: #### H EMDF, PT, BMP3M, PHOS3, MG3, CK3 #### [address] #### VD25H #### [place] [address] [place] [address] RBC #/vol (Bld) 3.62 10*6/uL Low 4.40-5.90 [facility] Comment on above: Performed By: #### H EMDF, PT, BMP3M, PHOS3, MG3, CK3 #### [address] #### VD25H #### [place] [address] [place] [address] WBC #/vol (Bld) 15.2 10*3/uL High 3.6-10.7 [facility] Comment on above: Performed By: #### H EMDF, PT, BMP3M, PHOS3, MG3, CK3 #### [address] #### VD25H #### [place] [address] [place] [address] Magnesiumon 07-26-2018 Magnesium mass conc 2.0 mg/dL Normal 1.6-2.3 [facility] Comment on above: Performed By: #### H EMDF, PT, BMP3M, PHOS3, MG3, CK3 #### [facility] [address] [place], [place] #### VD25H #### [facility] [address] [place] [address] Manual Diffon 07-26-2018 Abs Neutrophile Cnt 12.8 10*3/uL High 2.2-8.2 [facility] Comment on above: Performed By: #### H EMDF, PT, BMP3M, PHOS3, MG3, CK3 #### [place] [address] [place], [place] #### VD25H #### [facility] [address] [place] [address] Lymphocytes #/vol (Bld) 1.4 10*3/uL Normal 1.1-4.5 [facility] Comment on above: Performed By: #### H EMDF, PT, BMP3M, PHOS3, MG3, CK3 #### [place] [address] [place], [place] #### VD25H #### [facility] [address] [place] [address] Lymphocytes/100 WBC (Bld) 9 % Low 20-40 [facility] Comment on above: Performed By: #### H EMDF, PT, BMP3M, PHOS3, MG3, CK3 #### [address] [place], [place] #### VD25H #### [facility] [address] [place] [address] Monocytes #/vol (Bld) 1.1 10*3/uL Normal 0.2-1.1 [facility] Comment on above: Performed By: #### H EMDF, PT, BMP3M, PHOS3, MG3, CK3 #### [address] [place], [place] #### VD25H #### [facility] [address] [place] [address] Monocytes/100 WBC (Bld) 7 % Normal 2-10 [facility] Comment on above: Performed By: #### H EMDF, PT, BMP3M, PHOS3, MG3, CK3 #### [place] [address] [place], [place] #### VD25H #### [facility] [address] [place] [address] RBC morphology finding Nom (Bld) Normal Normal [facility] Comment on above: Performed By: #### H EMDF, PT, BMP3M, PHOS3, MG3, CK3 #### [place] [address] [place], [place] #### VD25H #### [facility] [address] [place] [address] Seg Neutrophils 84 % High 40-80 [facility] Comment on above: Performed By: #### H EMDF, PT, BMP3M, PHOS3, MG3, CK3 #### [place] [address] [place], [place] #### VD25H #### [facility] [address] [place] [address] Abs Baso Cnt 0.0 10*3/uL Normal 0.0-0.2 [facility] Comment on above: Performed By: #### H EMDF, PT, BMP3M, PHOS3, MG3, CK3 #### [place] [address] [place], [place] #### VD25H #### [facility] [address] [place] [address] Bands 0 % Normal 0-3 [facility] Comment on above: Performed By: #### H EMDF, PT, BMP3M, PHOS3, MG3, CK3 #### [place] [address] [place], [place] #### VD25H #### [facility] [address] [place] [address] Basophils/100 WBC (Bld) 0 % Normal 0-2 [facility] Comment on above: Performed By: #### H EMDF, PT, BMP3M, PHOS3, MG3, CK3 #### [address] [place], [place] #### VD25H #### [facility] [address] [place] [address] Cells counted 100 Normal [facility] Comment on above: Performed By: #### H EMDF, PT, BMP3M, PHOS3, MG3, CK3 #### [place] [address] [place], [place] #### VD25H #### [facility] [address] [place] [address] Eosinophils #/vol (Bld) 0.0 10*3/uL Normal 0.0-0.5 [facility] Comment on above: Performed By: #### H EMDF, PT, BMP3M, PHOS3, MG3, CK3 #### [address] #### VD25H #### [place] [address] [place] [address] Eosinophils/100 WBC (Bld) 0 % Low 1-6 [facility] Comment on above: Performed By: #### H EMDF, PT, BMP3M, PHOS3, MG3, CK3 #### [address] #### VD25H #### [facility] [address] [place] [address] Phosphoruson 07-26-2018 Phosphate mass conc 3.1 mg/dL Normal 2.5-4.5 [facility] Comment on above: Performed By: #### H EMDF, PT, BMP3M, PHOS3, MG3, CK3 #### [address] #### VD25H #### [facility] [address] [place] [address] Vancomycin Troughon 07-27-19 19 Vancomycin Trough 8.9 ug/mL Low 15.0-20.0 [facility] Comment on above: Result Comment: . Performed By: #### H EMDF, PT, BMP3M, PHOS3, MG3, CK3 #### [address] #### VD25H #### [facility] [address] [place] [address] Arterial Blood Gaseson 07-25 CO2 molar conc 22.0 mmol/L Low 23.0-27.0 [facility] Comment on above: Performed By: #### H EMDF, PT, BMP3M, PHOS3, MG3, CK3 #### [address] #### VD25H #### [facility] [address] [place] [address] HCO3 molar conc (Bld) 21.1 mmol/L Normal 21.0-25.0 [facility] Comment on above: Performed By: #### H EMDF, PT, BMP3M, PHOS3, MG3, CK3 #### [address] #### VD25H #### [place] [address] [place] [address] Hemoglobin mass conc (Bld) 10.1 g/dL Normal [facility]Only [facility] Comment on above: Performed By: #### H EMDF, PT, BMP3M, PHOS3, MG3, CK3 #### [address] #### VD25H #### [facility] [address] [place] [address] Oxygen ppres (Bld) 88.3 mm[Hg] Normal 80.0-100.0 [facility] Comment on above: Performed By: #### H EMDF, PT, BMP3M, PHOS3, MG3, CK3 #### [address] #### VD25H #### [place] [address] [place] [address] Oxygen saturation in Blood 96.8 % Normal 95.0-100.0 [facility] Comment on above: Performed By: #### H EMDF, PT, BMP3M, PHOS3, MG3, CK3 #### [address] #### VD25H #### [facility] [address] [place] [address] pCO2 29.9 mm[Hg] Low 35.0-45.0 [facility] Comment on above: Performed By: #### H EMDF, PT, BMP3M, PHOS3, MG3, CK3 #### [address] #### VD25H #### [place] [address] [place] [address] pH (Bld) 7.467 High 7.350-7.450 [facility] Comment on above: Performed By: #### H EMDF, PT, BMP3M, PHOS3, MG3, CK3 #### [address] #### VD25H #### [place] [address] [place] [address] Std Base Excess -1.9 mmol/L Normal -3.0-3.0 [facility] Comment on above: Performed By: #### H EMDF, PT, BMP3M, PHOS3, MG3, CK3 #### [address] #### VD25H #### [address] [place] [address] FIO2 .30 Normal [facility] Comment on above: Performed By: #### H EMDF, PT, BMP3M, PHOS3, MG3, CK3 #### [address] #### VD25H #### [place] [address] [place] [address] Basic Metabolic Panelon -2 Calcium mass conc 8.1 mg/dL Low 8.4-10.4 [facility] Comment on above: Performed By: #### H EMDF, PT, BMP3M, PHOS3, MG3, CK3 #### [place] [address] [place], [place] #### VD25H #### [facility] [address] [place] [address] Anion gap molar conc 8 Normal [facility] Comment on above: Performed By: #### H EMDF, PT, BMP3M, PHOS3, MG3, CK3 #### [place] [address] [place], [place] #### VD25H #### [facility] [address] [place] [address] CO2 molar conc 24 mmol/L Normal 22-30 [facility] Comment on above: Performed By: #### H EMDF, PT, BMP3M, PHOS3, MG3, CK3 #### [address] #### VD25H #### [facility] [address] [place] [address] Creatinine mass conc 0.55 mg/dL Normal 0.52-1.25 [facility] Comment on above: Performed By: #### H EMDF, PT, BMP3M, PHOS3, MG3, CK3 #### [address] #### VD25H #### [facility] [address] [place] [address] GFR/1.73 sq M predicted among blacks MDRD vol rate/area (S/P/Bld) mL/min/{1.73_m2} Normal >60 [facility] Comment on above: Performed By: #### H EMDF, PT, BMP3M, PHOS3, MG3, CK3 #### [place] [address] [place], [place] #### VD25H #### [facility] [address] [place] [address] GFR/1.73 sq M predicted among non-blacks MDRD vol rate/area (S/P/Bld) mL/min/{1.73_m2} Normal >60 [facility] Comment on above: Result Comment: Sour ce- MDRD equation with creatinine calibration to IDMS(NKDEP) eGFR not recommended for drug dose adjustment Performed By: #### H EMDF, PT, BMP3M, PHOS3, MG3, CK3 #### [facility] [address] [facility], [place] #### VD25H #### [facility] [address] [place] [address] Glucose mass conc 184 mg/dL High 70-100 [facility] Comment on above: Performed By: #### H EMDF, PT, BMP3M, PHOS3, MG3, CK3 #### [place] [address] [facility], [place] #### VD25H #### [facility] [address] [place] [address] Urea nitrogen mass conc 20 mg/dL Normal 7-20 [facility] Comment on above: Performed By: #### H EMDF, PT, BMP3M, PHOS3, MG3, CK3 #### [place] [address] [facility], [place] #### VD25H #### [facility] [address] [place] [address] Chloride molar conc 109 mmol/L High 98-107 [facility] Comment on above: Performed By: #### H EMDF, PT, BMP3M, PHOS3, MG3, CK3 #### [facility] [address] [facility], [place] #### VD25H #### [facility] [address] [place] [address] Potassium molar conc 4.0 mmol/L Normal 3.5-5.1 [facility] Comment on above: Performed By: #### H EMDF, PT, BMP3M, PHOS3, MG3, CK3 #### [place] [address] [facility], [place] #### VD25H #### [facility] [address] [place] [address] Sodium molar conc 141 mmol/L Normal 135-145 [employer] [facility] Comment on above: Performed By: #### H EMDF, PT, BMP3M, PHOS3, MG3, CK3 #### [facility] [address] [facility] [place] [address] #### VD25H #### [employer] [address] [place] [address] CR Chest Portableon 07-26-19 19 CR Chest Portable Patient Name: KATHYA HOOPER Diagnostic Radiology Exam Date/Time 07/25/2018 06:39:42 EDT Exam CR Chest Portable Ordering Physician MARIA EUGENIA PEREZ Accession Number [id number] CPT4 Codes 73541 () Reason For Exam ETT placement Report [...] 4 S Trimeth/Sulfa(CHRISTI) <= 20 S Normal [employer] Comment on above: Order Comment: Speci men Source Comment:Urine, clean catch Performed By: #### H EMDF, PT, BMP3M, PHOS3, MG3, CK3 #### [facility] [address] [place] [address] #### VD25H #### [facility] [address] [place] [address] Glucose,Bedsideon 07-25-2018 Glucose mass conc 140 mg/dL High 70-100 [employer] [facility] Comment on above: Result Comment: Test performed by glucose meter. Results may be 10%-15% lower than serum/plasma values. (CLIA ID [id number]) Performed By: #### H EMDF, PT, BMP3M, PHOS3, MG3, CK3 #### [facility] [address] [place] [address] #### VD25H #### [facility] [address] [place] [address] Glucose mass conc 158 mg/dL High 70-100 [employer] [facility] Comment on above: Result Comment: Test performed by glucose meter. Results may be 10%-15% lower than serum/plasma values. (CLIA ID [id number]) Performed By: #### H EMDF, PT, BMP3M, PHOS3, MG3, CK3 #### [employer] [address] [place] [id number] #### VD25H #### [employer] [facility] [address] [place] [address] Glucose mass conc 172 mg/dL High 70-100 [facility] Comment on above: Result Comment: Test performed by glucose meter. Results may be 10%-15% lower than serum/plasma values. (CLIA ID [id number]) Performed By: #### H EMDF, PT, BMP3M, PHOS3, MG3, CK3 #### [employer] [address] [address] #### VD25H #### [employer] [facility] [address] [place] [address] Glucose mass conc 169 mg/dL High 70-100 [facility] Comment on above: Result Comment: Test performed by glucose meter. Results may be 10%-15% lower than serum/plasma values. (CLIA ID [id number]) Performed By: #### H EMDF, PT, BMP3M, PHOS3, MG3, CK3 #### [employer] [address] [place] [id number] #### VD25H #### [employer] [facility] [address] [place] [address] Glucose mass conc 165 mg/dL High 70-100 [facility] Comment on above: Result Comment: Test performed by glucose meter. Results may be 10%-15% lower than serum/plasma values. (CLIA ID [id number]) Performed By: #### H EMDF, PT, BMP3M, PHOS3, MG3, CK3 #### [employer] [address] [address] #### VD25H #### [employer] [facility] [address] [place] [address] Hemogram w/ Autodiffon 07-25 Erythrocyte distribution width Ratio (RBC) 13.6 % Normal 11.5-14.5 [facility] Comment on above: Performed By: #### H EMDF, PT, BMP3M, PHOS3, MG3, CK3 #### [address] #### VD25H #### [facility] [address] [place] [address] Hematocrit Volume Fraction (Bld) 31.3 % Low 40.0-52.0 [facility] Comment on above: Performed By: #### H EMDF, PT, BMP3M, PHOS3, MG3, CK3 #### [address] #### VD25H #### [facility] [address] [place] [address] Hemoglobin mass conc (Bld) 10.6 g/dL Low 13.0-18.0 [facility] Comment on above: Performed By: #### H EMDF, PT, BMP3M, PHOS3, MG3, CK3 #### [address] #### VD25H #### [facility] [address] [facility] [address] MCH Entitic mass (RBC) 29.4 pg Normal 26.0-34.0 [facility] Comment on above: Performed By: #### H EMDF, PT, BMP3M, PHOS3, MG3, CK3 #### [address] #### VD25H #### [facility] [address] [place] [address] MCHC mass conc (RBC) 33.8 % Normal 32.0-36.0 [facility] Comment on above: Performed By: #### H EMDF, PT, BMP3M, PHOS3, MG3, CK3 #### [address] #### VD25H #### [facility] [address] [place] [address] MCV Entitic volume (RBC) 86.9 fL Normal 80.0-98.0 [facility] Comment on above: Performed By: #### H EMDF, PT, BMP3M, PHOS3, MG3, CK3 #### [address] #### VD25H #### [facility] [address] [place] [address] Platelet mean volume Entitic volume (Bld) 8.3 fL Normal 7.4-10.4 [facility] Comment on above: Performed By: #### H EMDF, PT, BMP3M, PHOS3, MG3, CK3 #### [address] #### VD25H #### [place] [address] [place] [address] Platelets #/vol (Bld) 360 10*3/uL Normal 140-440 [facility] Comment on above: Performed By: #### H EMDF, PT, BMP3M, PHOS3, MG3, CK3 #### [address] #### VD25H #### [facility] [address] [place] [address] RBC #/vol (Bld) 3.61 10*6/uL Low 4.40-5.90 [facility] Comment on above: Performed By: #### H EMDF, PT, BMP3M, PHOS3, MG3, CK3 #### [address] #### VD25H #### [facility] [address] [place] [address] WBC #/vol (Bld) 14.7 10*3/uL High 3.6-10.7 [facility] Comment on above: Performed By: #### H EMDF, PT, BMP3M, PHOS3, MG3, CK3 #### [address] [place], [place] #### VD25H #### [facility] [address] [place] [address] Magnesiumon 07-25-2018 Magnesium mass conc 2.1 mg/dL Normal 1.6-2.3 [facility] Comment on above: Performed By: #### H EMDF, PT, BMP3M, PHOS3, MG3, CK3 #### [place] [address] [place], [place] #### VD25H #### [facility] [address] [place] [address] Manual Diffon 07-25-2018 Abs Baso Cnt 0.1 10*3/uL Normal 0.0-0.2 [facility] Comment on above: Performed By: #### H EMDF, PT, BMP3M, PHOS3, MG3, CK3 #### [address] #### VD25H #### [facility] [address] [place] [address] Abs Neutrophile Cnt 12.9 10*3/uL High 2.2-8.2 [facility] Comment on above: Performed By: #### H EMDF, PT, BMP3M, PHOS3, MG3, CK3 #### [address] #### VD25H #### [facility] [address] [place] [address] Anisocytosis Ql (Bld) Slight Normal [facility] Comment on above: Performed By: #### H EMDF, PT, BMP3M, PHOS3, MG3, CK3 #### [address] #### VD25H #### [facility] [address] [place] [address] Bands 4 % High 0-3 [facility] Comment on above: Performed By: #### H EMDF, PT, BMP3M, PHOS3, MG3, CK3 #### [facility] [address] [place], [place] #### VD25H #### [facility] [address] [place] [address] Basophils/100 WBC (Bld) 1 % Normal 0-2 [facility] Comment on above: Performed By: #### H EMDF, PT, BMP3M, PHOS3, MG3, CK3 #### [facility] [address] [place], [place] #### VD25H #### [facility] [address] [place] [address] Eosinophils #/vol (Bld) 0.6 10*3/uL High 0.0-0.5 [facility] Comment on above: Performed By: #### H EMDF, PT, BMP3M, PHOS3, MG3, CK3 #### [place] [address] [place], [place] #### VD25H #### [facility] [address] [place] [address] Eosinophils/100 WBC (Bld) 4 % Normal 1-6 [facility] Comment on above: Performed By: #### H EMDF, PT, BMP3M, PHOS3, MG3, CK3 #### [facility] [address] [place], [place] #### VD25H #### [facility] [address] [place] [address] Lymphocytes #/vol (Bld) 0.1 10*3/uL Low 1.1-4.5 [facility] Comment on above: Performed By: #### H EMDF, PT, BMP3M, PHOS3, MG3, CK3 #### [place] [address] [place], [place] #### VD25H #### [facility] [address] [place] [address] Lymphocytes/100 WBC (Bld) 1 % Low 20-40 [facility] Comment on above: Performed By: #### H EMDF, PT, BMP3M, PHOS3, MG3, CK3 #### [facility] [address] [place], [place] #### VD25H #### [facility] [address] [place] [address] Macrocytosis Slight Normal [facility] Comment on above: Performed By: #### H EMDF, PT, BMP3M, PHOS3, MG3, CK3 #### [place] [address] [place], [place] #### VD25H #### [facility] [address] [place] [address] Metamyelocytes 2 % Abnormal <1 [facility] Comment on above: Performed By: #### H EMDF, PT, BMP3M, PHOS3, MG3, CK3 #### [address] [place], [place] #### VD25H #### [facility] [address] [place] [address] Microcytosis Slight Normal [facility] Comment on above: Performed By: #### H EMDF, PT, BMP3M, PHOS3, MG3, CK3 #### [place] [address] [place], [place] #### VD25H #### [facility] [address] [place] [place] [address] Monocytes #/vol (Bld) 0.6 10*3/uL Normal 0.2-1.1 [facility] Comment on above: Performed By: #### H EMDF, PT, BMP3M, PHOS3, MG3, CK3 #### [place] [address] [place], [place] #### VD25H #### [facility] [address] [place] [address] Monocytes/100 WBC (Bld) 4 % Normal 2-10 [facility] Comment on above: Performed By: #### H EMDF, PT, BMP3M, PHOS3, MG3, CK3 #### [place] [address] [place], [place] #### VD25H #### [facility] [address] [place] [address] RBC morphology finding Nom (Bld) ABNORMAL Normal [facility] Comment on above: Performed By: #### H EMDF, PT, BMP3M, PHOS3, MG3, CK3 #### [facility] [address] [place], [place] #### VD25H #### [facility] [address] [place] [address] Seg Neutrophils 84 % High 40-80 [facility] Comment on above: Performed By: #### H EMDF, PT, BMP3M, PHOS3, MG3, CK3 #### [address] #### VD25H #### [facility] [address] [place] [address] Cells counted 100 Normal [facility] Comment on above: Performed By: #### H EMDF, PT, BMP3M, PHOS3, MG3, CK3 #### [address] #### VD25H #### [facility] [address] [place] [address] Phosphoruson 07-25-2018 Phosphate mass conc 2.7 mg/dL Normal 2.5-4.5 [facility] Comment on above: Performed By: #### H EMDF, PT, BMP3M, PHOS3, MG3, CK3 #### [address] #### VD25H #### [facility] [address] [place] [address] Triglycerideon 07-25-2018 Triglyceride mass conc 82 mg/dL Normal <150 [facility] Comment on above: Performed By: #### H EMDF, PT, BMP3M, PHOS3, MG3, CK3 #### [address] #### VD25H #### [facility] [address] [place] [address] Basic Metabolic Panelon 06-30 Calcium mass conc 8.0 mg/dL Low 8.4-10.4 [facility] Comment on above: Performed By: #### H EMDF, PT, BMP3M, PHOS3, MG3, CK3 #### [facility] [address] [place], [place] #### VD25H #### [facility] [address] [place] [address] Anion gap molar conc 9 Normal [facility] Comment on above: Performed By: #### H EMDF, PT, BMP3M, PHOS3, MG3, CK3 #### [address] #### VD25H #### [facility] [address] [place] [address] CO2 molar conc 23 mmol/L Normal 22-30 [facility] Comment on above: Performed By: #### H EMDF, PT, BMP3M, PHOS3, MG3, CK3 #### [address] #### VD25H #### [facility] [address] [place] [address] Creatinine mass conc 0.71 mg/dL Normal 0.52-1.25 [facility] Comment on above: Performed By: #### H EMDF, PT, BMP3M, PHOS3, MG3, CK3 #### [address] #### [id number] #### [facility] [address] [place] [address] GFR/1.73 sq M predicted among blacks MDRD vol rate/area (S/P/Bld) mL/min/{1.73_m2} Normal >60 [facility] Comment on above: Performed By: #### H EMDF, PT, BMP3M, PHOS3, MG3, CK3 #### [address] #### [id number] #### [facility] [address] [place] [address] GFR/1.73 sq M predicted among non-blacks MDRD vol rate/area (S/P/Bld) mL/min/{1.73_m2} Normal >60 [facility] Comment on above: Result Comment: Sour ce- MDRD equation with creatinine calibration to IDMS(NKDEP) eGFR not recommended for drug dose adjustment Performed By: #### H EMDF, PT, BMP3M, PHOS3, MG3, CK3 #### [facility] [address] [place], [place] #### [id number] #### [facility] [address] [place] [address] Glucose mass conc 160 mg/dL High 70-100 [facility] Comment on above: Performed By: #### H EMDF, PT, BMP3M, PHOS3, MG3, CK3 #### [place] [address] [place], [place] #### [id number] #### [facility] [address] [place] [address] Urea nitrogen mass conc 28 mg/dL High 7-20 [facility] Comment on above: Performed By: #### H EMDF, PT, BMP3M, PHOS3, MG3, CK3 #### [place] [address] [place], [place] #### VD25H #### [facility] [address] [place] [address] Chloride molar conc 109 mmol/L High 98-107 [facility] Comment on above: Performed By: #### H EMDF, PT, BMP3M, PHOS3, MG3, CK3 #### [place] [address] [place], [place] #### VD25H #### [facility] [address] [place] [address] Potassium molar conc 3.7 mmol/L Normal 3.5-5.1 [facility] Comment on above: Performed By: #### H EMDF, PT, BMP3M, PHOS3, MG3, CK3 #### [place] [address] [place] [address] #### VD25H #### [facility] [address] [place] [address] Sodium molar conc 141 mmol/L Normal 135-145 [facility] Comment on above: Performed By: #### H EMDF, PT, BMP3M, PHOS3, MG3, CK3 #### [facility] [address] [place] [address] #### VD25H #### [facility] [address] [place] [address] CR Chest Portableon 07-25-19 19 CR Chest Portable Patient Name: KATHYA HOOPER Diagnostic Radiology Exam Date/Time 07/24/2018 13:12:47 EDT Exam CR Chest Portable Ordering Physician DO WOLFF KATHRYN C Accession Number [id number] CPT4 Codes 55656 () Reason For Exam line placement Report [...] Ordering Physician MARIA EUGENIA PEREZ Accession Number [id number] CPT4 Codes 79387 () Reason For Exam ETT placement Report [...] 07/24/2018 7:31 Normal [facility] CULT./ST. RESPIRATORYon - CULT./ST. RESPIRATORY CULT./ST. [...] 1 S Trimeth/Sulfa(CHRISTI) <= 20 S Normal [facility] [employer] Comment on above: Order Comment: Speci men Source Comment:Endotracheal Performed By: #### H EMDF, PT, BMP3M, PHOS3, MG3, CK3 #### [place] [address] [place] [address] #### VD25H #### [place] [address] [place] [place] [address] CULTURE URINEon 07-24-2018 CULTURE URINE 1 Organism [...] PHOS3, MG3, CK3 #### [facility] [address] [place], [place] #### VD25H #### [facility] [address] [place] [address] Creatinine, Ur Randomon 06-30 Creatinine, Ur Random 49.5 mg/dL Normal No Range [facility] Comment on above: Performed By: #### H EMDF, PT, BMP3M, PHOS3, MG3, CK3 #### [address] #### VD25H #### [facility] [address] [place] [address] Glucose,Bedsideon 07-24-2018 Glucose mass conc 124 mg/dL High 70-100 [facility] Comment on above: Result Comment: Test performed by glucose meter. Results may be 10%-15% lower than serum/plasma values. (CLIA ID [id number]) Performed By: #### H EMDF, PT, BMP3M, PHOS3, MG3, CK3 #### [address] #### VD25H #### [employer] [address] [place] [address] Glucose mass conc 152 mg/dL High 70-100 [facility] Comment on above: Result Comment: Test performed by glucose meter. Results may be 10%-15% lower than serum/plasma values. (CLIA ID [id number]) Performed By: #### H EMDF, PT, BMP3M, PHOS3, MG3, CK3 #### [facility] [address] [place], [place] #### VD25H #### [employer] [facility] [address] [place] [address] Glucose mass conc 149 mg/dL High 70-100 [facility] Comment on above: Result Comment: Test performed by glucose meter. Results may be 10%-15% lower than serum/plasma values. (CLIA ID [id number]) Performed By: #### H EMDF, PT, BMP3M, PHOS3, MG3, CK3 #### [employer] [place] [address] [address] [place], [place] #### VD25H #### [place] [address] [place] [address] Hemogram w/ Autodiffon 07-24 Erythrocyte distribution width Ratio (RBC) 13.7 % Normal 11.5-14.5 [facility] Comment on above: Performed By: #### H EMDF, PT, BMP3M, PHOS3, MG3, CK3 #### [employer] [place] [address] [address] [place], [place] #### VD25H #### [employer] [facility] [address] [place] [address] Hematocrit Volume Fraction (Bld) 31.4 % Low 40.0-52.0 [facility] Comment on above: Performed By: #### H EMDF, PT, BMP3M, PHOS3, MG3, CK3 #### [employer] [place] [address] [place], [place] #### VD25H #### [facility] [address] [place] [address] Hemoglobin mass conc (Bld) 10.7 g/dL Low 13.0-18.0 [facility] Comment on above: Performed By: #### H EMDF, PT, BMP3M, PHOS3, MG3, CK3 #### [address] #### VD25H #### [place] [address] [place] [address] MCH Entitic mass (RBC) 29.4 pg Normal 26.0-34.0 [facility] Comment on above: Performed By: #### H EMDF, PT, BMP3M, PHOS3, MG3, CK3 #### [address] #### VD25H #### [place] [address] [place] [address] MCHC mass conc (RBC) 33.9 % Normal 32.0-36.0 [facility] Comment on above: Performed By: #### H EMDF, PT, BMP3M, PHOS3, MG3, CK3 #### [address] #### VD25H #### [place] [address] [place] [place] [address] MCV Entitic volume (RBC) 86.8 fL Normal 80.0-98.0 [facility] Comment on above: Performed By: #### H EMDF, PT, BMP3M, PHOS3, MG3, CK3 #### [address] #### VD25H #### [place] [address] [facility] [address] Platelet mean volume Entitic volume (Bld) 8.6 fL Normal 7.4-10.4 [facility] Comment on above: Performed By: #### H EMDF, PT, BMP3M, PHOS3, MG3, CK3 #### [address] #### VD25H #### [facility] [address] [place] [address] Platelets #/vol (Bld) 304 10*3/uL Normal 140-440 [facility] Comment on above: Performed By: #### H EMDF, PT, BMP3M, PHOS3, MG3, CK3 #### [address] #### VD25H #### [facility] [address] [place] [address] RBC #/vol (Bld) 3.62 10*6/uL Low 4.40-5.90 [facility] Comment on above: Performed By: #### H EMDF, PT, BMP3M, PHOS3, MG3, CK3 #### [address] #### VD25H #### [place] [address] [place] [address] WBC #/vol (Bld) 14.0 10*3/uL High 3.6-10.7 [facility] Comment on above: Performed By: #### H EMDF, PT, BMP3M, PHOS3, MG3, CK3 #### [address] #### VD25H #### [place] [address] [place] [address] Magnesiumon 07-24-2018 Magnesium mass conc 2.2 mg/dL Normal 1.6-2.3 [facility] Comment on above: Performed By: #### H EMDF, PT, BMP3M, PHOS3, MG3, CK3 #### [address] #### VD25H #### [facility] [address] [place] [address] Manual Diffon 07-24-2018 Abs Baso Cnt 0.0 10*3/uL Normal 0.0-0.2 [facility] Comment on above: Performed By: #### H EMDF, PT, BMP3M, PHOS3, MG3, CK3 #### [facility] [address] [place], [place] #### VD25H #### [facility] [address] [place] [address] Abs Neutrophile Cnt 12.2 10*3/uL High 2.2-8.2 [facility] Comment on above: Performed By: #### H EMDF, PT, BMP3M, PHOS3, MG3, CK3 #### [facility] [address] [place], [place] #### VD25H #### [facility] [address] [place] [address] Eosinophils #/vol (Bld) 0.4 10*3/uL Normal 0.0-0.5 [facility] Comment on above: Performed By: #### H EMDF, PT, BMP3M, PHOS3, MG3, CK3 #### [place] [address] [address] [place], [place] #### VD25H #### [facility] [address] [place] [address] Eosinophils/100 WBC (Bld) 3 % Normal 1-6 [facility] Comment on above: Performed By: #### H EMDF, PT, BMP3M, PHOS3, MG3, CK3 #### [facility] [address] [place], [place] #### VD25H #### [facility] [address] [place] [address] Lymphocytes #/vol (Bld) 1.0 10*3/uL Low 1.1-4.5 [facility] Comment on above: Performed By: #### H EMDF, PT, BMP3M, PHOS3, MG3, CK3 #### [address] [place], [place] #### VD25H #### [facility] [address] [place] [address] Lymphocytes/100 WBC (Bld) 7 % Low 20-40 [facility] Comment on above: Performed By: #### H EMDF, PT, BMP3M, PHOS3, MG3, CK3 #### [address] [place], [place] #### VD25H #### [facility] [address] [place] [address] Monocytes #/vol (Bld) 0.4 10*3/uL Normal 0.2-1.1 [facility] Comment on above: Performed By: #### H EMDF, PT, BMP3M, PHOS3, MG3, CK3 #### [place] [address] [address] [place], [place] #### VD25H #### [facility] [address] [place] [address] Monocytes/100 WBC (Bld) 3 % Normal 2-10 [facility] Comment on above: Performed By: #### H EMDF, PT, BMP3M, PHOS3, MG3, CK3 #### [address] #### VD25H #### [facility] [address] [place] [address] RBC morphology finding Nom (Bld) Normal Normal [facility] Comment on above: Performed By: #### H EMDF, PT, BMP3M, PHOS3, MG3, CK3 #### [address] #### VD25H #### [facility] [address] [place] [address] Seg Neutrophils 87 % High 40-80 [facility] Comment on above: Performed By: #### H EMDF, PT, BMP3M, PHOS3, MG3, CK3 #### [address] #### VD25H #### [facility] [address] [place] [address] Bands 0 % Normal 0-3 [facility] Comment on above: Performed By: #### H EMDF, PT, BMP3M, PHOS3, MG3, CK3 #### [address] [place], [place] #### VD25H #### [facility] [address] [place] [address] Basophils/100 WBC (Bld) 0 % Normal 0-2 [facility] Comment on above: Performed By: #### H EMDF, PT, BMP3M, PHOS3, MG3, CK3 #### [place] [address] [address] [place], [place] #### VD25H #### [facility] [address] [place] [address] Cells counted 100 Normal [facility] Comment on above: Performed By: #### H EMDF, PT, BMP3M, PHOS3, MG3, CK3 #### [address] #### VD25H #### [facility] [address] [place] [address] Phosphoruson 07-24-2018 Phosphate mass conc 2.7 mg/dL Normal 2.5-4.5 [facility] Comment on above: Performed By: #### H EMDF, PT, BMP3M, PHOS3, MG3, CK3 #### [address] #### VD25H #### [facility] [address] [place] [address] Triglycerideon 07-24-2018 Triglyceride mass conc 78 mg/dL Normal <150 [facility] Comment on above: Performed By: #### H EMDF, PT, BMP3M, PHOS3, MG3, CK3 #### [address] [place], [place] #### VD25H #### [facility] [address] [place] [address] Urea Nitrogen,Ur Randomon Urea nitrogen mass conc 1199 mg/dL Normal No Range S [facility] Comment on above: Performed By: #### H EMDF, PT, BMP3M, PHOS3, MG3, CK3 #### [place] [address] [address] [place], [place] #### VD25H #### [facility] [address] [place] [address] Add on test from HISon 07-23 Add on test from HIS Accepted Normal [facility] Comment on above: Result Comment: Spec imen available & acceptable for analysis. Performed By: #### H EMDF, PT, BMP3M, PHOS3, MG3, CK3 #### [place] [address] [address] [place], [place] #### VD25H #### [place] [address] [place] [address] Arterial Blood Gaseson 07-23 CO2 molar conc 23.0 mmol/L Normal 23.0-27.0 [facility] Comment on above: Performed By: #### H EMDF, PT, BMP3M, PHOS3, MG3, CK3 #### [address] #### VD25H #### [place] [address] [place] [address] HCO3 molar conc (Bld) 22.0 mmol/L Normal 21.0-25.0 [facility] Comment on above: Performed By: #### H EMDF, PT, BMP3M, PHOS3, MG3, CK3 #### [address] #### VD25H #### [place] [address] [place] [address] Hemoglobin mass conc (Bld) 10.9 g/dL Normal ScreenOnly [facility] Comment on above: Performed By: #### H EMDF, PT, BMP3M, PHOS3, MG3, CK3 #### [address] #### VD25H #### [place] [address] [place] [address] Oxygen ppres (Bld) 102.4 mm[Hg] High 80.0-100.0 [facility] Comment on above: Performed By: #### H EMDF, PT, BMP3M, PHOS3, MG3, CK3 #### [address] #### VD25H #### [facility] [address] [place] [address] Oxygen saturation in Blood 97.7 % Normal 95.0-100.0 [facility] Comment on above: Performed By: #### H EMDF, PT, BMP3M, PHOS3, MG3, CK3 #### [address] #### VD25H #### [facility] [address] [place] [address] pCO2 34.4 mm[Hg] Low 35.0-45.0 [facility] Comment on above: Performed By: #### H EMDF, PT, BMP3M, PHOS3, MG3, CK3 #### [address] #### VD25H #### [facility] [address] [place] [address] pH (Bld) 7.423 Normal 7.350-7.450 [facility] Comment on above: Performed By: #### H EMDF, PT, BMP3M, PHOS3, MG3, CK3 #### [address] #### VD25H #### [place] [address] [place] [address] Std Base Excess -1.9 mmol/L Normal -3.0-3.0 [facility] Comment on above: Performed By: #### H EMDF, PT, BMP3M, PHOS3, MG3, CK3 #### [address] #### VD25H #### [place] [address] [place] [address] FIO2 .30 Normal [facility] Comment on above: Performed By: #### H EMDF, PT, BMP3M, PHOS3, MG3, CK3 #### [facility] [address] [facility], [place] #### VD25H #### [facility] [address] [place] [address] Basic Metabolic Panelon -2 Anion gap molar conc 12 Normal [facility] Comment on above: Performed By: #### H EMDF, PT, BMP3M, PHOS3, MG3, CK3 #### [facility] [address] [facility], [place] #### VD25H #### [facility] [address] [place] [address] Calcium mass conc 7.5 mg/dL Low 8.4-10.4 [facility] Comment on above: Performed By: #### H EMDF, PT, BMP3M, PHOS3, MG3, CK3 #### [place] [address] [address] [place] #### VD25H #### [facility] [address] [place] [address] CO2 molar conc 23 mmol/L Normal 22-30 [facility] Comment on above: Performed By: #### H EMDF, PT, BMP3M, PHOS3, MG3, CK3 #### [place] [address] [address] [facility], [place] #### VD25H #### [facility] [address] [place] [address] Glucose mass conc 148 mg/dL High 70-100 [facility] Comment on above: Performed By: #### H EMDF, PT, BMP3M, PHOS3, MG3, CK3 #### [place] [address] [address] [facility], [place] #### VD25H #### [facility] [address] [place] [address] Urea nitrogen mass conc 82 mg/dL High 7-20 S [facility] Comment on above: Performed By: #### H EMDF, PT, BMP3M, PHOS3, MG3, CK3 #### [place] [address] [address] [place], [place] #### VD25H #### [facility] [address] [place] [address] Creatinine mass conc 3.01 mg/dL High 0.52-1.25 [facility] Comment on above: Performed By: #### H EMDF, PT, BMP3M, PHOS3, MG3, CK3 #### [facility] [address] [place], [place] #### VD25H #### [facility] [address] [place] [address] GFR/1.73 sq M predicted among blacks MDRD vol rate/area (S/P/Bld) 25.8 mL/min/{1.73_m2} Normal >60 [facility] Comment on above: Performed By: #### H EMDF, PT, BMP3M, PHOS3, MG3, CK3 #### [place] [address] [address] [place], [place] #### VD25H #### [facility] [address] [place] [address] GFR/1.73 sq M predicted among non-blacks MDRD vol rate/area (S/P/Bld) 21.3 mL/min/{1.73_m2} Normal >60 [facility] Comment on above: Result Comment: Sour ce- MDRD equation with creatinine calibration to IDMS(NKDEP) eGFR not recommended for drug dose adjustment Performed By: #### H EMDF, PT, BMP3M, PHOS3, MG3, CK3 #### [place] [address] [address] [place], [place] #### VD25H #### [facility] [address] [place] [address] Chloride molar conc 106 mmol/L Normal 98-107 [facility] Comment on above: Performed By: #### H EMDF, PT, BMP3M, PHOS3, MG3, CK3 #### [place] [address] [place], [place] #### VD25H #### [facility] [address] [place] [address] Potassium molar conc 4.2 mmol/L Normal 3.5-5.1 [facility] Comment on above: Performed By: #### H EMDF, PT, BMP3M, PHOS3, MG3, CK3 #### [facility] [address] [place] [address] #### VD25H #### [facility] [address] [place] [address] Sodium molar conc 141 mmol/L Normal 135-145 [facility] Comment on above: Performed By: #### H EMDF, PT, BMP3M, PHOS3, MG3, CK3 #### [facility] [address] [place] [address] #### VD25H #### [facility] [address] [place] [address] CR Chest Portableon 07-24-19 CR Chest Portable Patient Name: KATHYA HOOPER Diagnostic Radiology Exam Date/Time 07/23/2018 07:06:03 EDT Exam CR Chest Portable Ordering Physician MARIA EUGENIA PEREZ Accession Number [id number] CPT4 Codes 95774 () Reason For Exam ETT placement Report [...] 7:58 Normal [facility] Creatinine, Ur Randomon - Creatinine, Ur Random 56.8 mg/dL Normal No Range [facility] Comment on above: Performed By: #### H EMDF, PT, BMP3M, PHOS3, MG3, CK3 #### [facility] [address] [place], [place] #### VD25H #### [facility] [address] [place] [address] Glucose,Bedsideon 07-23-2018 Glucose mass conc 116 mg/dL High 70-100 [facility] Comment on above: Result Comment: Test performed by glucose meter. Results may be 10%-15% lower than serum/plasma values. (CLIA ID [id number]) Performed By: #### H EMDF, PT, BMP3M, PHOS3, MG3, CK3 #### [facility] [address] #### VD25H #### [facility] [place] [address] [place] [address] Glucose mass conc 139 mg/dL High 70-100 [facility] Comment on above: Result Comment: Test performed by glucose meter. Results may be 10%-15% lower than serum/plasma values. (CLIA ID [id number]) Performed By: #### H EMDF, PT, BMP3M, PHOS3, MG3, CK3 #### [facility] [address] #### VD25H #### [facility] [address] [place] [address] Glucose mass conc 140 mg/dL High 70-100 [facility] Comment on above: Result Comment: Test performed by glucose meter. Results may be 10%-15% lower than serum/plasma values. (CLIA ID [id number]) Performed By: #### H EMDF, PT, BMP3M, PHOS3, MG3, CK3 #### [facility] [address] #### VD25H #### [facility] [address] [place] [address] Glucose mass conc 140 mg/dL High 70-100 [facility] Comment on above: Result Comment: Test performed by glucose meter. Results may be 10%-15% lower than serum/plasma values. (CLIA ID [id number]) Performed By: #### H EMDF, PT, BMP3M, PHOS3, MG3, CK3 #### [facility] [address] [place], [place] #### VD25H #### [facility] [address] [place] [address] Hemogram w/ Autodiffon 07-23 Abs Baso Cnt 0.0 10*3/uL Normal 0.0-0.2 [facility] Comment on above: Performed By: #### H EMDF, PT, BMP3M, PHOS3, MG3, CK3 #### [address] #### VD25H #### [facility] [address] [place] [address] Abs Neutrophile Cnt 16.2 10*3/uL High 1.8-7.0 [facility] Comment on above: Performed By: #### H EMDF, PT, BMP3M, PHOS3, MG3, CK3 #### [address] #### VD25H #### [facility] [address] [place] [address] Basophils/100 WBC (Bld) 0.3 % Normal 0.0-2.0 [facility] Comment on above: Performed By: #### H EMDF, PT, BMP3M, PHOS3, MG3, CK3 #### [address] #### VD25H #### [facility] [address] [place] [address] Eosinophils #/vol (Bld) 0.2 10*3/uL Normal 0.0-0.5 [facility] Comment on above: Performed By: #### H EMDF, PT, BMP3M, PHOS3, MG3, CK3 #### [facility] [address] [place], [place] #### VD25H #### [facility] [address] [place] [address] Eosinophils/100 WBC (Bld) 1.2 % Normal 1.0-6.0 [facility] Comment on above: Performed By: #### H EMDF, PT, BMP3M, PHOS3, MG3, CK3 #### [address] [place], [place] #### VD25H #### [facility] [address] [place] [address] Erythrocyte distribution width Ratio (RBC) 13.9 % Normal 11.5-14.5 [facility] Comment on above: Performed By: #### H EMDF, PT, BMP3M, PHOS3, MG3, CK3 #### [address] #### VD25H #### [facility] [address] [place] [address] Granulocytes/100 WBC (Bld) 86.8 % High 40.0-80.0 [facility] Comment on above: Performed By: #### H EMDF, PT, BMP3M, PHOS3, MG3, CK3 #### [address] #### VD25H #### [facility] [address] [place] [address] Hematocrit Volume Fraction (Bld) 26.7 % Low 40.0-52.0 [facility] Comment on above: Performed By: #### H EMDF, PT, BMP3M, PHOS3, MG3, CK3 #### [address] #### VD25H #### [facility] [address] [place] [address] Hemoglobin mass conc (Bld) 8.9 g/dL Low 13.0-18.0 [facility] Comment on above: Performed By: #### H EMDF, PT, BMP3M, PHOS3, MG3, CK3 #### [facility] [address] [place], [place] #### VD25H #### [facility] [address] [place] [address] Lymphocytes #/vol (Bld) 1.2 10*3/uL Normal 1.0-4.3 [facility] Comment on above: Performed By: #### H EMDF, PT, BMP3M, PHOS3, MG3, CK3 #### [place] [address] [address] [place], [place] #### VD25H #### [facility] [address] [place] [address] Lymphocytes/100 WBC (Bld) 6.6 % Low 20.0-40.0 [facility] Comment on above: Performed By: #### H EMDF, PT, BMP3M, PHOS3, MG3, CK3 #### [place] [address] [address] [place], [place] #### VD25H #### [facility] [address] [place] [address] MCH Entitic mass (RBC) 29.5 pg Normal 26.0-34.0 [facility] Comment on above: Performed By: #### H EMDF, PT, BMP3M, PHOS3, MG3, CK3 #### [place] [address] [address] [place], [place] #### VD25H #### [facility] [address] [place] [address] MCHC mass conc (RBC) 33.5 % Normal 32.0-36.0 [facility] Comment on above: Performed By: #### H EMDF, PT, BMP3M, PHOS3, MG3, CK3 #### [address] [place], [place] #### VD25H #### [facility] [address] [place] [address] MCV Entitic volume (RBC) 87.9 fL Normal 80.0-98.0 [facility] Comment on above: Performed By: #### H EMDF, PT, BMP3M, PHOS3, MG3, CK3 #### [address] [place], [place] #### VD25H #### [facility] [address] [place] [address] Monocytes #/vol (Bld) 1.0 10*3/uL High 0.0-0.8 [facility] Comment on above: Performed By: #### H EMDF, PT, BMP3M, PHOS3, MG3, CK3 #### [address] #### VD25H #### [facility] [address] [place] [address] Monocytes/100 WBC (Bld) 5.1 % Normal 2.0-10.0 [facility] Comment on above: Performed By: #### H EMDF, PT, BMP3M, PHOS3, MG3, CK3 #### [address] #### VD25H #### [facility] [address] [place] [address] Platelet mean volume Entitic volume (Bld) 8.2 fL Normal 7.4-10.4 [facility] Comment on above: Performed By: #### H EMDF, PT, BMP3M, PHOS3, MG3, CK3 #### [address] [place], [place] #### VD25H #### [facility] [address] [place] [address] Platelets #/vol (Bld) 294 10*3/uL Normal 140-440 [facility] Comment on above: Performed By: #### H EMDF, PT, BMP3M, PHOS3, MG3, CK3 #### [address] #### VD25H #### [facility] [address] [place] [address] RBC #/vol (Bld) 3.03 10*6/uL Low 4.40-5.90 [facility] Comment on above: Performed By: #### H EMDF, PT, BMP3M, PHOS3, MG3, CK3 #### [facility] [address] [place], [place] #### [id number] #### [facility] [address] [place] [address] WBC #/vol (Bld) 18.7 10*3/uL High 3.6-10.7 [facility] Comment on above: Performed By: #### H EMDF, PT, BMP3M, PHOS3, MG3, CK3 #### [address] #### [id number] #### [facility] [address] [place] [address] LDHon 07-23-2018 LDH 342 U/L High 65-175 [facility] Comment on above: Performed By: #### H EMDF, PT, BMP3M, PHOS3, MG3, CK3 #### [address] #### VD25H #### [facility] [address] [place] [place] [address] Magnesiumon 07-23-2018 Magnesium mass conc 2.5 mg/dL High 1.6-2.3 [facility] Comment on above: Performed By: #### H EMDF, PT, BMP3M, PHOS3, MG3, CK3 #### [address] #### VD25H #### [facility] [address] [place] [address] Phosphoruson 07-23-2018 Phosphate mass conc 4.5 mg/dL Normal 2.5-4.5 [facility] Comment on above: Performed By: #### H EMDF, PT, BMP3M, PHOS3, MG3, CK3 #### [address] #### VD25H #### [facility] [address] [place] [address] Protein, Total Body Fluidon 07-23-2018 Protein,Total-Body Fld 2.7 g/dL Normal No Range [facility] Comment on above: Performed By: #### H EMDF, PT, BMP3M, PHOS3, MG3, CK3 #### [place] [address] [place], [place] #### VD25H #### [facility] [address] [place] [address] Triglycerideon 07-23-2018 Triglyceride mass conc 63 mg/dL Normal <150 [facility] Comment on above: Performed By: #### H EMDF, PT, BMP3M, PHOS3, MG3, CK3 #### [address] #### VD25H #### [place] [address] [place] [address] Urea Nitrogen,Ur Randomon Urea nitrogen mass conc 677 mg/dL Normal No Range [facility] Comment on above: Performed By: #### H EMDF, PT, BMP3M, PHOS3, MG3, CK3 #### [address] [place] #### VD25H #### [facility] [address] [place] [address] Urinalysis,Macroon 9 Appearance Nom (U) cloudy Normal Clear [facility] Comment on above: Performed By: #### H EMDF, PT, BMP3M, PHOS3, MG3, CK3 #### [address] #### VD25H #### [facility] [address] [place] [address] Bilirubin,Ur Negative Normal Negative [facility] Comment on above: Performed By: #### H EMDF, PT, BMP3M, PHOS3, MG3, CK3 #### [address] [place], [place] #### VD25H #### [facility] [address] [place] [address] Color Nom (U) dk.yel Normal Lt. Yellow [facility] Comment on above: Performed By: #### H EMDF, PT, BMP3M, PHOS3, MG3, CK3 #### [place] [address] [address] [place], [place] #### VD25H #### [facility] [address] [place] [address] Glucose Ql (U) NORM Normal Negative [facility] Comment on above: Performed By: #### H EMDF, PT, BMP3M, PHOS3, MG3, CK3 #### [address] [place], [place] #### VD25H #### [facility] [address] [place] [address] Ketone,Urine Negative Normal Negative [facility] Comment on above: Performed By: #### H EMDF, PT, BMP3M, PHOS3, MG3, CK3 #### [address] #### VD25H #### [facility] [address] [place] [address] Nitrite Ql (U) Negative Normal Negative [facility] Comment on above: Performed By: #### H EMDF, PT, BMP3M, PHOS3, MG3, CK3 #### [address] [place] #### VD25H #### [facility] [address] [place] [address] Occult Blood,Ur 250 {RBC}/uL Normal Negative [facility] Comment on above: Performed By: #### H EMDF, PT, BMP3M, PHOS3, MG3, CK3 #### [address] #### VD25H #### [facility] [address] [place] [address] pH (U) 5.0 Normal 5.0-8.0 [facility] Comment on above: Performed By: #### H EMDF, PT, BMP3M, PHOS3, MG3, CK3 #### [address] [place] #### VD25H #### [facility] [address] [place] [address] Protein mass conc (U) 75 mg/dL Normal Negative [facility] Comment on above: Performed By: #### H EMDF, PT, BMP3M, PHOS3, MG3, CK3 #### [address] [place] #### VD25H #### [facility] [address] [place] [address] Specific Drake,Urine 1.015 Normal 1.005-1.030 [facility] Comment on above: Performed By: #### H EMDF, PT, BMP3M, PHOS3, MG3, CK3 #### [address] #### VD25H #### [facility] [address] [place] [address] Urobilinogen Qn (U) NORM Normal 0-1 [facility] Comment on above: Performed By: #### H EMDF, PT, BMP3M, PHOS3, MG3, CK3 #### [address] #### VD25H #### [facility] [address] [place] [address] WBC #/vol (Bld) 2 + Normal Negative [facility] Comment on above: Performed By: #### H EMDF, PT, BMP3M, PHOS3, MG3, CK3 #### [address] [place] #### VD25H #### [facility] [address] [place] [address] Urinalysis,Microscopicon Bacteria LM.HPF #/area (Urine sed) Moderate (6-50) Normal Negative [facility] Comment on above: Performed By: #### H EMDF, PT, BMP3M, PHOS3, MG3, CK3 #### [facility] [address] [place] #### VD25H #### [facility] [address] [place] [address] Epithelial cells LM.HPF #/area (Urine sed) 0 - 2 Normal 3-5 [facility] Comment on above: Performed By: #### H EMDF, PT, BMP3M, PHOS3, MG3, CK3 #### [place] [address] [address] [place] #### VD25H #### [facility] [address] [place] [address] RBC LM.HPF #/area (Urine sed) /[HPF] Normal 0-2 [facility] Comment on above: Performed By: #### H EMDF, PT, BMP3M, PHOS3, MG3, CK3 #### [place] [address] [address] [place] #### VD25H #### [facility] [address] [place] [address] Volume,Urine 8-12 ml Normal [facility] Comment on above: Performed By: #### H EMDF, PT, BMP3M, PHOS3, MG3, CK3 #### [place] [address] [place], [place] #### VD25H #### [facility] [address] [place] [address] WBC LM.HPF #/area (Urine sed) 26 - 50 Normal 0-5 [facility] Comment on above: Performed By: #### H EMDF, PT, BMP3M, PHOS3, MG3, CK3 #### [address] [place] #### VD25H #### [facility] [address] [place] [address] VL Venous Duplex US Lower Ex t Bilateralon 07-23-2018 VL Venous Duplex US Lower Ext Bilateral Patient Name: KATHYA HOOPER Ultrasound Exam Date/Time 07/23/2018 11:16:11 EDT Exam VL Venous Duplex US Lower Ext Bilateral Ordering Physician ETIENNE MARTÍNEZ JULIE Accession Number [id number] CPT4 Codes 00693 () Reason For Exam edema Report [facility] --- Lower Extremity Venous Duplex Report Patient Name: Kathya Hooper : 1955 Study Date: 07/23/2018 W (63yrs) Age: 63 Account: [id number] Gender: M Loc: T209 BP: Ordering: Yesenia Martínez Technologist: Ordering Physician: Yesenia Martínez Calculation Clerk: León Chaidez RVT, [facility] Interpreting Physician: Vamsi York MD --- Location: [facility] --- INDICATIONS: Edema. bilateral calf edema. --- [...] performed. The images were obtained using a Insync E9 vascular ultrasound machine. --- VENOUS FLOW [...] --+ Electronically signed by: Vamsi York MD [id number] Final Dictated: 07/23/2018 3:00 pm Dictating Physician: VAMSI YORK Signed Date and Time: 07/23/2018 3:00 pm Signed by: VAMSI YORK Normal [facility] Vancomycin Troughon 07-24-19 Vancomycin Trough 10.8 ug/mL Low 15.0-20.0 [facility] [employer] [facility] Comment on above: Result Comment: . Performed By: #### H EMDF, PT, BMP3M, PHOS3, MG3, CK3 #### [facility] [address] [place] [id number] #### VD25H #### [facility] [address] [place] [address] Basic Metabolic Panelon 03-2 Calcium mass conc 7.9 mg/dL Low 8.4-10.4 [facility] Comment on above: Performed By: #### H EMDF, PT, BMP3M, PHOS3, MG3, CK3 #### [place] [address] [place] #### VD25H #### [facility] [address] [place] [address] Anion gap molar conc 11 Normal [facility] Comment on above: Performed By: #### H EMDF, PT, BMP3M, PHOS3, MG3, CK3 #### [place] [address] [place] #### VD25H #### [place] [address] [place] [address] CO2 molar conc 28 mmol/L Normal 22-30 [facility] Comment on above: Performed By: #### H EMDF, PT, BMP3M, PHOS3, MG3, CK3 #### [place] [address] [facility] [place] #### VD25H #### [facility] [address] [place] [address] Glucose mass conc 134 mg/dL High 70-100 [facility] Comment on above: Performed By: #### H EMDF, PT, BMP3M, PHOS3, MG3, CK3 #### [place] [address] [facility] [place] #### VD25H #### [facility] [address] [place] [address] Urea nitrogen mass conc 51 mg/dL High 7-20 [facility] Comment on above: Performed By: #### H EMDF, PT, BMP3M, PHOS3, MG3, CK3 #### [place] [address] [place] #### VD25H #### [facility] [address] [place] [address] Creatinine mass conc 1.57 mg/dL High 0.52-1.25 [facility] Comment on above: Performed By: #### H EMDF, PT, BMP3M, PHOS3, MG3, CK3 #### [facility] [address] [place], [place] #### VD25H #### [facility] [address] [place] [address] GFR/1.73 sq M predicted among blacks MDRD vol rate/area (S/P/Bld) 54.6 mL/min/{1.73_m2} Normal >60 [facility] Comment on above: Performed By: #### H EMDF, PT, BMP3M, PHOS3, MG3, CK3 #### [address] #### VD25H #### [facility] [address] [place] [address] GFR/1.73 sq M predicted among non-blacks MDRD vol rate/area (S/P/Bld) 45.1 mL/min/{1.73_m2} Normal >60 [facility] Comment on above: Result Comment: Sour ce- MDRD equation with creatinine calibration to IDMS(NKDEP) eGFR not recommended for drug dose adjustment Performed By: #### H EMDF, PT, BMP3M, PHOS3, MG3, CK3 #### [address] #### VD25H #### [facility] [address] [place] [address] Chloride molar conc 107 mmol/L Normal 98-107 [facility] Comment on above: Performed By: #### H EMDF, PT, BMP3M, PHOS3, MG3, CK3 #### [address] #### VD25H #### [facility] [address] [place] [address] Potassium molar conc 3.8 mmol/L Normal 3.5-5.1 [facility] Comment on above: Performed By: #### H EMDF, PT, BMP3M, PHOS3, MG3, CK3 #### [facility] [address] [place] [address] #### VD25H #### [facility] [address] [place] [address] Sodium molar conc 146 mmol/L High 135-145 [facility] Comment on above: Performed By: #### H EMDF, PT, BMP3M, PHOS3, MG3, CK3 #### [facility] [address] [place] [address] #### VD25H #### [facility] [address] [place] [address] CR Abdomen APon 07-22-2018 CR Abdomen AP Patient Name: KATHYA HOOPER Diagnostic Radiology Exam Date/Time 07/22/2018 08:02:02 EDT Exam CR Abdomen AP Ordering Physician MARIA EUGENIA PEREZ Accession Number [id number] CPT4 Codes 16788 () Reason For Exam ileus Report Supine [...] Normal [facility] CR Chest Portableon 07-23-19 19 CR Chest Portable Patient Name: KATHYA HOOPER Diagnostic Radiology Exam Date/Time 07/22/2018 16:32:15 EDT Exam CR Chest Portable Ordering Physician MD NATE, [facility] Accession Number [id number] CPT4 Codes 19012 () Reason For Exam Thoracentesis Report Clinical [...] Ordering Physician MARIA EUGENIA PEREZ Accession Number [id number] CPT4 Codes 04798 () Reason For Exam ETT placement Report [...] PHOS3, MG3, CK3 #### [facility] [address] [place], [place] #### VD25H #### [facility] [address] [place] [address] Cell Count,Body Fluidon 06-30 Nucleated Cells 259 {cells}/uL Normal [facility] Comment on above: Performed By: #### H EMDF, PT, BMP3M, PHOS3, MG3, CK3 #### [facility] [address] [place] #### VD25H #### [facility] [address] [place] [address] RBC Count Body Fld 123 {RBC}/uL Normal [facility] Comment on above: Performed By: #### H EMDF, PT, BMP3M, PHOS3, MG3, CK3 #### [facility] [address] [place] #### VD25H #### [facility] [address] [place] [address] Fluid Type thoracentesis Normal [facility] Comment on above: Performed By: #### H EMDF, PT, BMP3M, PHOS3, MG3, CK3 #### [facility] [address] [place], [place] #### VD25H #### [facility] [address] [place] [address] Glucose, Body Fluidon 2018 Fluid Type Thoracentesis Normal [facility] Comment on above: Performed By: #### H EMDF, PT, BMP3M, PHOS3, MG3, CK3 #### [facility] [place] #### VD25H #### [facility] [address] [place] [address] Glucose, Body Fluid 136 mg/dL Normal No Range [facility] Comment on above: Performed By: #### H EMDF, PT, BMP3M, PHOS3, MG3, CK3 #### [facility] [address] [place], [place] #### VD25H #### [facility] [address] [place] [address] Glucose,Bedsideon 07-22-2018 Glucose mass conc 142 mg/dL High 70-100 [facility] Comment on above: Result Comment: Test performed by glucose meter. Results may be 10%-15% lower than serum/plasma values. (CLIA ID [id number]) Performed By: #### H EMDF, PT, BMP3M, PHOS3, MG3, CK3 #### [facility] [address] [place], [place] #### VD25H #### [facility] [address] [place] [address] Glucose mass conc 127 mg/dL High 70-100 [facility] Comment on above: Result Comment: Test performed by glucose meter. Results may be 10%-15% lower than serum/plasma values. (CLIA ID [id number]) Performed By: #### H EMDF, PT, BMP3M, PHOS3, MG3, CK3 #### [facility] [address] [place] [address] #### VD25H #### [facility] [address] [place] [address] Glucose mass conc 139 mg/dL High 70-100 [facility] Comment on above: Result Comment: Test performed by glucose meter. Results may be 10%-15% lower than serum/plasma values. (CLIA ID [id number]) Performed By: #### H EMDF, PT, BMP3M, PHOS3, MG3, CK3 #### [facility] [address] [place] [address] #### VD25H #### [facility] [address] [place] [address] Glucose mass conc 124 mg/dL High 70-100 [facility] Comment on above: Result Comment: Test performed by glucose meter. Results may be 10%-15% lower than serum/plasma values. (CLIA ID [id number]) Performed By: #### H EMDF, PT, BMP3M, PHOS3, MG3, CK3 #### [facility] [address] [place] [address] #### VD25H #### [facility] [address] [place] [address] Glucose mass conc 128 mg/dL High 70-100 [facility] Comment on above: Result Comment: Test performed by glucose meter. Results may be 10%-15% lower than serum/plasma values. (CLIA ID [id number]) Performed By: #### H EMDF, PT, BMP3M, PHOS3, MG3, CK3 #### [facility] [address] [place] [address] #### VD25H #### [facility] [address] [place] [address] Glucose mass conc 113 mg/dL High 70-100 [facility] Comment on above: Result Comment: Test performed by glucose meter. Results may be 10%-15% lower than serum/plasma values. (CLIA ID [id number]) Performed By: #### H EMDF, PT, BMP3M, PHOS3, MG3, CK3 #### [address] #### VD25H #### [facility] [address] [place] [address] Hemogram w/ Autodiffon 07-22 Abs Baso Cnt 0.1 10*3/uL Normal 0.0-0.2 [facility] Comment on above: Performed By: #### H EMDF, PT, BMP3M, PHOS3, MG3, CK3 #### [address] #### VD25H #### [facility] [address] [place] [address] Abs Neutrophile Cnt 15.2 10*3/uL High 1.8-7.0 [facility] Comment on above: Performed By: #### H EMDF, PT, BMP3M, PHOS3, MG3, CK3 #### [address] #### VD25H #### [facility] [address] [place] [address] Basophils/100 WBC (Bld) 0.6 % Normal 0.0-2.0 [facility] Comment on above: Performed By: #### H EMDF, PT, BMP3M, PHOS3, MG3, CK3 #### [address] #### VD25H #### [facility] [address] [place] [address] Eosinophils #/vol (Bld) 0.2 10*3/uL Normal 0.0-0.5 [facility] Comment on above: Performed By: #### H EMDF, PT, BMP3M, PHOS3, MG3, CK3 #### [address] #### VD25H #### [facility] [address] [place] [address] Eosinophils/100 WBC (Bld) 0.9 % Low 1.0-6.0 [facility] Comment on above: Performed By: #### H EMDF, PT, BMP3M, PHOS3, MG3, CK3 #### [facility] [address] [place] #### VD25H #### [facility] [address] [place] [address] Erythrocyte distribution width Ratio (RBC) 13.9 % Normal 11.5-14.5 [facility] Comment on above: Performed By: #### H EMDF, PT, BMP3M, PHOS3, MG3, CK3 #### [address] #### VD25H #### [facility] [address] [place] [address] Granulocytes/100 WBC (Bld) 88.8 % High 40.0-80.0 [facility] Comment on above: Performed By: #### H EMDF, PT, BMP3M, PHOS3, MG3, CK3 #### [address] #### VD25H #### [facility] [address] [place] [address] Hematocrit Volume Fraction (Bld) 31.6 % Low 40.0-52.0 [facility] Comment on above: Performed By: #### H EMDF, PT, BMP3M, PHOS3, MG3, CK3 #### [address] [place] #### VD25H #### [facility] [address] [place] [address] Hemoglobin mass conc (Bld) 10.9 g/dL Low 13.0-18.0 [facility] Comment on above: Performed By: #### H EMDF, PT, BMP3M, PHOS3, MG3, CK3 #### [address] #### VD25H #### [facility] [address] [place] [address] Lymphocytes #/vol (Bld) 1.1 10*3/uL Normal 1.0-4.3 [facility] Comment on above: Performed By: #### H EMDF, PT, BMP3M, PHOS3, MG3, CK3 #### [address] #### VD25H #### [facility] [address] [place] [address] Lymphocytes/100 WBC (Bld) 6.2 % Low 20.0-40.0 [facility] Comment on above: Performed By: #### H EMDF, PT, BMP3M, PHOS3, MG3, CK3 #### [address] #### VD25H #### [place] [address] [place] [address] MCH Entitic mass (RBC) 31.1 pg Normal 26.0-34.0 [facility] Comment on above: Performed By: #### H EMDF, PT, BMP3M, PHOS3, MG3, CK3 #### [address] #### VD25H #### [place] [address] [place] [address] MCHC mass conc (RBC) 34.6 % Normal 32.0-36.0 [facility] Comment on above: Performed By: #### H EMDF, PT, BMP3M, PHOS3, MG3, CK3 #### [address] #### VD25H #### [facility] [address] [place] [address] MCV Entitic volume (RBC) 89.9 fL Normal 80.0-98.0 [facility] Comment on above: Performed By: #### H EMDF, PT, BMP3M, PHOS3, MG3, CK3 #### [address] #### VD25H #### [facility] [address] [place] [address] Monocytes #/vol (Bld) 0.6 10*3/uL Normal 0.0-0.8 [facility] Comment on above: Performed By: #### H EMDF, PT, BMP3M, PHOS3, MG3, CK3 #### [place] [address] [place], [place] #### VD25H #### [facility] [address] [place] [address] Monocytes/100 WBC (Bld) 3.5 % Normal 2.0-10.0 [facility] Comment on above: Performed By: #### H EMDF, PT, BMP3M, PHOS3, MG3, CK3 #### [address] #### VD25H #### [facility] [address] [place] [address] Platelet mean volume Entitic volume (Bld) 7.9 fL Normal 7.4-10.4 [facility] Comment on above: Performed By: #### H EMDF, PT, BMP3M, PHOS3, MG3, CK3 #### [address] #### VD25H #### [facility] [address] [place] [address] Platelets #/vol (Bld) 299 10*3/uL Normal 140-440 [facility] Comment on above: Performed By: #### H EMDF, PT, BMP3M, PHOS3, MG3, CK3 #### [address] #### VD25H #### [facility] [address] [place] [address] RBC #/vol (Bld) 3.52 10*6/uL Low 4.40-5.90 [facility] Comment on above: Performed By: #### H EMDF, PT, BMP3M, PHOS3, MG3, CK3 #### [address] #### VD25H #### [address] [place] [address] WBC #/vol (Bld) 17.1 10*3/uL High 3.6-10.7 [facility] Comment on above: Performed By: #### H EMDF, PT, BMP3M, PHOS3, MG3, CK3 #### [address] #### VD25H #### [address] [place] [address] LDH, Body Fluidon 07-22-2018 LDH, Body Fluid 232 U/L Normal No Range [facility] Comment on above: Performed By: #### H EMDF, PT, BMP3M, PHOS3, MG3, CK3 #### [address] #### VD25H #### [address] [place] [address] Magnesiumon 07-22-2018 Magnesium mass conc 2.6 mg/dL High 1.6-2.3 [facility] Comment on above: Performed By: #### H EMDF, PT, BMP3M, PHOS3, MG3, CK3 #### [address] #### VD25H #### [address] [place] [address] Medical Cytologyon 9 Medical Cytology [facility] CY22-145 [facility]ICINE [address] [facility] [place] [address] FINAL MEDICAL CYTOLOGY REPORT NAME: KATHYA HOOPER : 1955 63 Y M BILLLITA NO.: [id number] LOCATION: 1T2I T2 INPAT T209 PROCEDURE 07/22/2018 [...] . . 1 MRC Screened by CYNDI LILYL M.D. The following statement applies to all [...] negativity on decalcified specimens. Case reviewed at [place] [address] [place] [address]. DEPARTMENT OF PATHOLOGY AND LABORATORY MEDICINE [place], [place] [address] Normal [facility] Phosphoruson 07-22-2018 Phosphate mass conc 4.6 mg/dL High 2.5-4.5 [facility] Comment on above: Performed By: #### H EMDF, PT, BMP3M, PHOS3, MG3, CK3 #### [address] #### VD25H #### [facility] [address] [place] [address] Procalcitoninon 07-22-2018 Protein mass conc 0.27 ng/mL Abnormal <0.10 [facility] Comment on above: Result Comment: (Cor rect ref.range is <0.09 ng/mL) Test performed: [place], [place]. Performed By: #### H EMDF, PT, BMP3M, PHOS3, MG3, CK3 #### [address] #### VD25H #### [place] [address] [place] [address] Interpretation See Below Normal [facility] Comment on above: Result Comment: PCT <0.50 = Low risk of severe sepsis and/or septic shock. PCT >2.00 = High risk of severe sepsis and/or septic shock. Performed By: #### H EMDF, PT, BMP3M, PHOS3, MG3, CK3 #### [address] #### VD25H #### [facility] [address] [place] [address] STAIN ACID-FASTon 07-22-2018 STAIN ACID-FAST STAIN ACID-FAST --> Status: F No acid-fast bacilli seen in smear. - Method: AFB by Kinyoun Stain - Method: AFB by Kinyoun Stain [facility] Comment on above: Performed By: #### H EMDF, PT, BMP3M, PHOS3, MG3, CK3 #### [address] #### VD25H #### [facility] [address] [place] [address] Triglycerideon 07-22-2018 Triglyceride mass conc 96 mg/dL Normal <150 [facility] Comment on above: Performed By: #### H EMDF, PT, BMP3M, PHOS3, MG3, CK3 #### [facility] [address] [facility] [place] [address] #### VD25H #### [facility] [address] [place] [address] US Thora-Aspir Pleura w/ Evelin geon 07-22-2018 US Thora-Aspir Pleura w/ Image Patient Name: KATHYA HOOPER Ultrasound Exam Date/Time 07/22/2018 14:23:28 EDT Exam US Thora-Aspir Pleura w/ Image Ordering Physician MARIA EUGENIA PEREZ Accession Number [id number] CPT4 Codes 18111 () Reason For Exam L thoracentesis Report Reasons for examination: Left pleural effusion. Respiratory insufficiency. Ultrasound was performed of the left hemithorax, localizing the pleural fluid. After obtaining informed consent, sterile preparation, draping, and local anesthetic administration, thoracentesis was performed under direct ultrasonographic guidance with a 5 Wallisian Yueh needle/catheter. A total of 300 mL [...] MG3, CK3 #### [facility] [address] [place] [address] #### VD25H #### [facility] [address] [place] [address] Arterial Blood Gaseson 07-21 CO2 molar conc 29.8 mmol/L High 23.0-27.0 [facility] Comment on above: Performed By: #### T SGL #### [facility] [address] [place] [address] HCO3 molar conc (Bld) 28.7 mmol/L High 21.0-25.0 [facility] Comment on above: Performed By: #### T SGL #### [place] [address] [place] [address] Hemoglobin mass conc (Bld) 11.7 g/dL Normal ScreenOnly [facility] Comment on above: Performed By: #### T SGL #### [facility] [address] [place] [address] Oxygen ppres (Bld) 144.9 mm[Hg] High 80.0-100.0 [facility] [facility] Comment on above: Performed By: #### T SGL #### [address] [place] [address] Oxygen saturation in Blood 98.4 % Normal 95.0-100.0 [facility] Comment on above: Performed By: #### T SGL #### [facility] [address] [place] [address] pCO2 36.8 mm[Hg] Normal 35.0-45.0 [facility] Comment on above: Performed By: #### T SGL #### [facility] [address] [place] [address] pH (Bld) 7.510 High 7.350-7.450 [facility] Comment on above: Performed By: #### T SGL #### [address] [place] [address] Std Base Excess 5.5 mmol/L High -3.0-3.0 [facility] Comment on above: Performed By: #### T SGL #### [address] [place] [address] FIO2 .50 Normal [facility] Comment on above: Performed By: #### T SGL #### [facility] [address] [place] [address] CR Abdomen APon 07-21-2018 CR Abdomen AP Patient Name: KATHYA HOOPER Diagnostic Radiology Exam Date/Time 07/21/2018 06:41:07 EDT Exam CR Abdomen AP Ordering Physician [id number] JOYA PERRY Accession Number [id number] CPT4 Codes 34953 () Reason For Exam ileus Report Reason [...] Ordering Physician MARIA EUGENIA PEREZ Accession Number [id number] CPT4 Codes 80833 () Reason For Exam ETT placement Report [...] Ordering Physician MD GRIFFIN NICHOLAS Accession Number [id number] CPT4 Codes 50395 () Reason For Exam s/p bronch Report [...] Calcium mass conc 7.9 mg/dL Low 8.4-10.4 [facility] Comment on above: Performed By: #### T SGL #### [facility] [address] [place] [address] ALP enzyme act/vol 85 U/L Normal 38-126 [facility] Comment on above: Performed By: #### T SGL #### [facility] [address] [place] [address] ALT enzyme act/vol 105 U/L High 13-69 [facility] Comment on above: Performed By: #### T SGL #### [facility] [address] [place] [address] Anion gap molar conc 8 Normal [facility] Comment on above: Performed By: #### T SGL #### [facility] [address] [place] [address] AST enzyme act/vol 78 U/L High 15-46 [facility] Comment on above: Performed By: #### T SGL #### [facility] [address] [place] [address] Bilirubin mass conc 1.1 mg/dL Normal 0.2-1.3 [facility] Comment on above: Performed By: #### T SGL #### [facility] [address] [place] [address] CO2 molar conc 33 mmol/L High 22-30 [facility] Comment on above: Performed By: #### T SGL #### [facility] [address] [place] [address] Creatinine mass conc 0.90 mg/dL Normal 0.52-1.25 [facility] Comment on above: Performed By: #### T SGL #### [facility] [address] [place] [address] GFR/1.73 sq M predicted among blacks MDRD vol rate/area (S/P/Bld) mL/min/{1.73_m2} Normal >60 [facility] Comment on above: Performed By: #### T SGL #### [facility] [address] [place] [address] GFR/1.73 sq M predicted among non-blacks MDRD vol rate/area (S/P/Bld) mL/min/{1.73_m2} Normal >60 [facility] Comment on above: Result Comment: Sour ce- MDRD equation with creatinine calibration to IDMS(NKDEP) eGFR not recommended for drug dose adjustment Performed By: #### T SGL #### [facility] [address] [place] [address] Glucose mass conc 113 mg/dL High 70-100 [facility] Comment on above: Performed By: #### T SGL #### [facility] [address] [place] [address] Protein mass conc 5.6 g/dL Low 6.3-8.2 [facility] Comment on above: Performed By: #### T SGL #### [facility] [address] [place] [address] Urea nitrogen mass conc 28 mg/dL High 7-20 [facility] Comment on above: Performed By: #### T SGL #### [address] [place] [address] Chloride molar conc 104 mmol/L Normal 98-107 [facility] Comment on above: Performed By: #### T SGL #### [facility] [address] [place] [address] Potassium molar conc 3.6 mmol/L Normal 3.5-5.1 [facility] Comment on above: Performed By: #### T SGL #### [address] [place] [address] Sodium molar conc 145 mmol/L Normal 135-145 [facility] Comment on above: Performed By: #### T SGL #### [facility] [address] [place] [address] Albumin mass conc 2.8 g/dL Low 3.5-5.0 [facility] Comment on above: Performed By: #### T SGL #### [facility] [address] [place] [address] Glucose,Bedsideon 07-21-2018 Glucose mass conc 124 mg/dL High 70-100 [facility] Comment on above: Result Comment: Test performed by glucose meter. Results may be 10%-15% lower than serum/plasma values. (CLIA ID [id number]) Performed By: #### H EMDF, PT, BMP3M, PHOS3, MG3, CK3 #### [address] #### VD25H #### [facility] [address] [place] [address] Glucose mass conc 151 mg/dL High 70-100 [facility] Comment on above: Result Comment: Test performed by glucose meter. Results may be 10%-15% lower than serum/plasma values. (CLIA ID [id number]) Performed By: #### H EMDF, PT, BMP3M, PHOS3, MG3, CK3 #### [address] #### VD25H #### [facility] [address] [place] [address] Glucose mass conc 127 mg/dL High 70-100 [facility] Comment on above: Result Comment: Test performed by glucose meter. Results may be 10%-15% lower than serum/plasma values. (CLIA ID [id number]) Performed By: #### T SGL #### [address] [address] Glucose mass conc 113 mg/dL High 70-100 [facility] Comment on above: Result Comment: Test performed by glucose meter. Results may be 10%-15% lower than serum/plasma values. (CLIA ID [id number]) Performed By: #### A DDON #### [address] Hemogram w/ Autodiffon 07-21 Abs Baso Cnt 0.1 10*3/uL Normal 0.0-0.2 [facility] Comment on above: Performed By: #### T SGL #### [address] [address] Abs Neutrophile Cnt 11.0 10*3/uL High 1.8-7.0 [facility] Comment on above: Performed By: #### T SGL #### [address] [place] [address] Basophils/100 WBC (Bld) 0.5 % Normal 0.0-2.0 [facility] Comment on above: Performed By: #### T SGL #### [address] [place] [address] Eosinophils #/vol (Bld) 0.3 10*3/uL Normal 0.0-0.5 [facility] Comment on above: Performed By: #### T SGL #### [address] [place] [address] Eosinophils/100 WBC (Bld) 1.9 % Normal 1.0-6.0 [facility] Comment on above: Performed By: #### T SGL #### [address] [place] [address] Erythrocyte distribution width Ratio (RBC) 13.7 % Normal 11.5-14.5 [facility] Comment on above: Performed By: #### T SGL #### [address] [place] [address] Granulocytes/100 WBC (Bld) 81.0 % High 40.0-80.0 [facility] Comment on above: Performed By: #### T SGL #### [address] [place] [address] Hematocrit Volume Fraction (Bld) 32.1 % Low 40.0-52.0 [facility] Comment on above: Performed By: #### T SGL #### [address] [place] [address] Hemoglobin mass conc (Bld) 10.7 g/dL Low 13.0-18.0 [facility] Comment on above: Performed By: #### T SGL #### [address] [place] [address] Lymphocytes #/vol (Bld) 1.3 10*3/uL Normal 1.0-4.3 [facility] Comment on above: Performed By: #### T SGL #### [address] [place] [address] Lymphocytes/100 WBC (Bld) 9.8 % Low 20.0-40.0 [facility] Comment on above: Performed By: #### T SGL #### [facility] [address] [place] [address] MCH Entitic mass (RBC) 29.0 pg Normal 26.0-34.0 [facility] Comment on above: Performed By: #### T SGL #### [facility] [address] [place] [address] MCHC mass conc (RBC) 33.4 % Normal 32.0-36.0 [facility] Comment on above: Performed By: #### T SGL #### [address] [place] [address] MCV Entitic volume (RBC) 86.9 fL Normal 80.0-98.0 [facility] Comment on above: Performed By: #### T SGL #### [address] [place] [address] Monocytes #/vol (Bld) 0.9 10*3/uL High 0.0-0.8 [facility] Comment on above: Performed By: #### T SGL #### [address] [place] [address] Monocytes/100 WBC (Bld) 6.8 % Normal 2.0-10.0 [facility] Comment on above: Performed By: #### T SGL #### [address] [place] [address] Platelet mean volume Entitic volume (Bld) 7.4 fL Normal 7.4-10.4 [facility] Comment on above: Performed By: #### T SGL #### [address] [place] [address] Platelets #/vol (Bld) 367 10*3/uL Normal 140-440 [facility] Comment on above: Performed By: #### T SGL #### [address] [place] [address] RBC #/vol (Bld) 3.69 10*6/uL Low 4.40-5.90 [facility] Comment on above: Performed By: #### T SGL #### [address] [place] [address] WBC #/vol (Bld) 13.6 10*3/uL High 3.6-10.7 [facility] Comment on above: Performed By: #### T SGL #### [facility] [address] [place] [address] Magnesiumon 07-21-2018 Magnesium mass conc 2.6 mg/dL High 1.6-2.3 [facility] Comment on above: Performed By: #### T SGL #### [address] [place] [address] Phosphoruson 07-21-2018 Phosphate mass conc 4.2 mg/dL Normal 2.5-4.5 [facility] Comment on above: Performed By: #### T SGL #### [address] [place] [address] Triglycerideon 07-21-2018 Triglyceride mass conc 105 mg/dL Normal <150 [facility] Comment on above: Performed By: #### T SGL #### [address] [place] [address] Add on test from HISon 07-20 Add on test from HIS Accepted Normal [facility] Comment on above: Result Comment: Spec imen available & acceptable for analysis. Performed By: #### A DDON #### [address] [place] [address] Basic Metabolic Panelon 06-30 Calcium mass conc 7.7 mg/dL Low 8.4-10.4 [facility] Comment on above: Performed By: #### A DDON #### [address] [place], [place] Glucose mass conc 96 mg/dL Normal 70-100 [facility] Comment on above: Performed By: #### A DDON #### [address] [place] Urea nitrogen mass conc 22 mg/dL High 7-20 [facility] Comment on above: Performed By: #### A DDON #### [address] [place] Anion gap molar conc 10 Normal [facility] Comment on above: Performed By: #### A DDON #### [address] [place] [address] CO2 molar conc 29 mmol/L Normal 22-30 [facility] Comment on above: Performed By: #### A DDON #### [address] [place] [address] Creatinine mass conc 0.87 mg/dL Normal 0.52-1.25 [facility] Comment on above: Performed By: #### A DDON #### [address] [place] [address] GFR/1.73 sq M predicted among blacks MDRD vol rate/area (S/P/Bld) mL/min/{1.73_m2} Normal >60 [facility] Comment on above: Performed By: #### A DDON #### [address] [place] GFR/1.73 sq M predicted among non-blacks MDRD vol rate/area (S/P/Bld) mL/min/{1.73_m2} Normal >60 [facility] Comment on above: Result Comment: Sour ce- MDRD equation with creatinine calibration to IDMS(NKDEP) eGFR not recommended for drug dose adjustment Performed By: #### A DDON #### [address] [place] [address] Potassium molar conc 3.6 mmol/L Normal 3.5-5.1 [facility] Comment on above: Performed By: #### A DDON #### [address] [place] [address] Chloride molar conc 105 mmol/L Normal 98-107 [facility] Comment on above: Performed By: #### A DDON #### [address] [place] [address] Sodium molar conc 144 mmol/L Normal 135-145 [facility] Comment on above: Performed By: #### A DDON #### [address] [place], [place] CR Abdomen APon 07-20-2018 CR Abdomen AP Patient Name: KATHYA HOOPER Diagnostic Radiology Exam Date/Time 07/20/2018 08:39:45 EDT Exam CR Abdomen AP Ordering Physician [id number] -ERnAanda JOYA Accession Number [id number] CPT4 Codes 88111 () Reason For Exam ileus Report Clinical [...] Ordering Physician MARIA EUGENIA PEREZ Accession Number [id number] CPT4 Codes 74384 () Reason For Exam ETT placement Report [...] Time: 07/20/2018 9:29 am Signed by: MD VAUGHN FULDA Transcribed Date and Time: 07/20/2018 9:[address] [facility] CT Abdomen/Pelvis w/ Contras ton 07-20-2018 CT Abdomen/Pelvis w/ Contrast Patient Name: KATHYA HOOPER CT Exam Date/Time 07/20/2018 11:30:[address] Abdomen/Pelvis w/ IV Contrast (IV Onl Ordering Physician [id number] [place]O JOYA Accession Number [id number] CPT4 Codes 40380 (CT Abdomen/Pelvis w/ IV Contrast (IV Onl) [...] Exam CT Chest w/ Contrast Ordering Physician [id number] JOYA PERRY Accession Number [id number] CPT4 Codes 44581 (), Q9967 (CT ISOVUE [id number]) Reason For Exam SOB, possible pneumonia Report [...] Transcribed Date and Time: 07/20/2018 1:28 Normal [facility] [employer] Glucose,Bedsideon 07-20-2018 Glucose mass conc 128 mg/dL High 70-100 [facility] Comment on above: Result Comment: Test performed by glucose meter. Results may be 10%-15% lower than serum/plasma values. (CLIA ID [id number]) Performed By: #### A DDON #### [facility] [address] [place] [phone] Hemogram w/ Autodiffon 07-20 Abs Baso Cnt 0.1 10*3/uL Normal 0.0-0.2 [facility] Comment on above: Performed By: #### H EMDF, PT, BMP3M, PHOS3, MG3, CK3 #### [facility] [address] [place] #### VD25H #### [facility] [address] [place] [address] Abs Neutrophile Cnt 13.0 10*3/uL High 1.8-7.0 [facility] Comment on above: Performed By: #### H EMDF, PT, BMP3M, PHOS3, MG3, CK3 #### [address] [place], [place] #### VD25H #### [facility] [address] [place] [address] Basophils/100 WBC (Bld) 0.3 % Normal 0.0-2.0 [facility] Comment on above: Performed By: #### H EMDF, PT, BMP3M, PHOS3, MG3, CK3 #### [address] #### VD25H #### [facility] [address] [place] [address] Eosinophils #/vol (Bld) 0.3 10*3/uL Normal 0.0-0.5 [facility] Comment on above: Performed By: #### H EMDF, PT, BMP3M, PHOS3, MG3, CK3 #### [address] [place] #### VD25H #### [facility] [address] [place] [address] Eosinophils/100 WBC (Bld) 1.9 % Normal 1.0-6.0 [facility] Comment on above: Performed By: #### H EMDF, PT, BMP3M, PHOS3, MG3, CK3 #### [address] #### VD25H #### [facility] [address] [place] [address] Erythrocyte distribution width Ratio (RBC) 13.3 % Normal 11.5-14.5 [facility] Comment on above: Performed By: #### H EMDF, PT, BMP3M, PHOS3, MG3, CK3 #### [facility] [address] [place] #### VD25H #### [facility] [address] [place] [address] Granulocytes/100 WBC (Bld) 81.8 % High 40.0-80.0 [facility] Comment on above: Performed By: #### H EMDF, PT, BMP3M, PHOS3, MG3, CK3 #### [address] [place] #### VD25H #### [facility] [address] [place] [address] Hematocrit Volume Fraction (Bld) 33.6 % Low 40.0-52.0 [facility] Comment on above: Performed By: #### H EMDF, PT, BMP3M, PHOS3, MG3, CK3 #### [address] [place], [place] #### VD25H #### [facility] [address] [place] [address] Hemoglobin mass conc (Bld) 11.4 g/dL Low 13.0-18.0 [facility] Comment on above: Performed By: #### H EMDF, PT, BMP3M, PHOS3, MG3, CK3 #### [address] [place] #### VD25H #### [facility] [address] [place] [address] Lymphocytes #/vol (Bld) 1.5 10*3/uL Normal 1.0-4.3 [facility] Comment on above: Performed By: #### H EMDF, PT, BMP3M, PHOS3, MG3, CK3 #### [address] [place] #### VD25H #### [facility] [address] [place] [address] Lymphocytes/100 WBC (Bld) 9.2 % Low 20.0-40.0 [facility] Comment on above: Performed By: #### H EMDF, PT, BMP3M, PHOS3, MG3, CK3 #### [address] #### VD25H #### [facility] [address] [place] [address] MCH Entitic mass (RBC) 29.3 pg Normal 26.0-34.0 [facility] Comment on above: Performed By: #### H EMDF, PT, BMP3M, PHOS3, MG3, CK3 #### [address] #### VD25H #### [address] [place] [address] MCHC mass conc (RBC) 33.9 % Normal 32.0-36.0 [facility] Comment on above: Performed By: #### H EMDF, PT, BMP3M, PHOS3, MG3, CK3 #### [address] #### VD25H #### [address] [place] [address] MCV Entitic volume (RBC) 86.5 fL Normal 80.0-98.0 [facility] Comment on above: Performed By: #### H EMDF, PT, BMP3M, PHOS3, MG3, CK3 #### [address] #### VD25H #### [facility] [address] [place] [address] Monocytes #/vol (Bld) 1.1 10*3/uL High 0.0-0.8 [facility] Comment on above: Performed By: #### H EMDF, PT, BMP3M, PHOS3, MG3, CK3 #### [address] #### VD25H #### [facility] [address] [place] [address] Monocytes/100 WBC (Bld) 6.8 % Normal 2.0-10.0 [facility] Comment on above: Performed By: #### H EMDF, PT, BMP3M, PHOS3, MG3, CK3 #### [address] [place] #### VD25H #### [facility] [address] [place] [address] Platelet mean volume Entitic volume (Bld) 7.5 fL Normal 7.4-10.4 [facility] Comment on above: Performed By: #### H EMDF, PT, BMP3M, PHOS3, MG3, CK3 #### [address] [place] #### VD25H #### [facility] [address] [place] [address] Platelets #/vol (Bld) 375 10*3/uL Normal 140-440 [facility] Comment on above: Performed By: #### H EMDF, PT, BMP3M, PHOS3, MG3, CK3 #### [address] [place] #### VD25H #### [facility] [address] [place] [address] RBC #/vol (Bld) 3.88 10*6/uL Low 4.40-5.90 [facility] Comment on above: Performed By: #### H EMDF, PT, BMP3M, PHOS3, MG3, CK3 #### [address] [place], [place] #### VD25H #### [facility] [address] [place] [address] WBC #/vol (Bld) 15.9 10*3/uL High 3.6-10.7 [facility] Comment on above: Performed By: #### H EMDF, PT, BMP3M, PHOS3, MG3, CK3 #### [address] [place] #### VD25H #### [facility] [address] [place] [address] Phosphoruson 07-20-2018 Phosphate mass conc 5.5 mg/dL High 2.5-4.5 [facility] Comment on above: Performed By: #### A DDON #### [address] [place], [place] Add on test from HISon 07-19 Add on test from HIS Accepted Normal [facility] Comment on above: Result Comment: Spec imen available & acceptable for analysis. Performed By: #### H EMDF, PT, BMP3M, PHOS3, MG3, CK3 #### [address] #### VD25H #### [facility] [address] [place] [address] Arterial Blood Gaseson 07-19 CO2 molar conc 31.5 mmol/L High 23.0-27.0 [facility] Comment on above: Performed By: #### H EMDF, PT, BMP3M, PHOS3, MG3, CK3 #### [address] [place], [place] #### VD25H #### [facility] [address] [place] [address] HCO3 molar conc (Bld) 30.2 mmol/L High 21.0-25.0 [facility] Comment on above: Performed By: #### H EMDF, PT, BMP3M, PHOS3, MG3, CK3 #### [address] [place] #### VD25H #### [facility] [address] [place] [address] Hemoglobin mass conc (Bld) 11.7 g/dL Normal ScreenOnly [facility] Comment on above: Performed By: #### H EMDF, PT, BMP3M, PHOS3, MG3, CK3 #### [address] [place] #### VD25H #### [facility] [address] [place] [address] Oxygen ppres (Bld) 85.1 mm[Hg] Normal 80.0-100.0 [facility] Comment on above: Performed By: #### H EMDF, PT, BMP3M, PHOS3, MG3, CK3 #### [address] [facility], [place] #### VD25H #### [facility] [address] [place] [address] Oxygen saturation in Blood 95.9 % Normal 95.0-100.0 [facility] Comment on above: Performed By: #### H EMDF, PT, BMP3M, PHOS3, MG3, CK3 #### [address] #### VD25H #### [address] [address] [place] [address] pCO2 43.6 mm[Hg] Normal 35.0-45.0 [facility] Comment on above: Performed By: #### H EMDF, PT, BMP3M, PHOS3, MG3, CK3 #### [address] [facility], [place] #### VD25H #### [facility] [address] [place] [address] pH (Bld) 7.458 High 7.350-7.450 [facility] Comment on above: Performed By: #### H EMDF, PT, BMP3M, PHOS3, MG3, CK3 #### [address] [facility], [place] #### VD25H #### [facility] [address] [place] [address] Std Base Excess 5.7 mmol/L High -3.0-3.0 [facility] Comment on above: Performed By: #### H EMDF, PT, BMP3M, PHOS3, MG3, CK3 #### [address] [place] #### VD25H #### [facility] [address] [place] [address] FIO2 40% Normal [facility] Comment on above: Performed By: #### H EMDF, PT, BMP3M, PHOS3, MG3, CK3 #### [address] [place] #### VD25H #### [facility] [address] [place] [address] Basic Metabolic Panelon 03-2 Calcium mass conc 7.5 mg/dL Low 8.4-10.4 [facility] Comment on above: Performed By: #### H EMDF, PT, BMP3M, PHOS3, MG3, CK3 #### [address], [place] #### VD25H #### [facility] [address] [place] [address] Glucose mass conc 274 mg/dL High 70-100 [facility] Comment on above: Performed By: #### H EMDF, PT, BMP3M, PHOS3, MG3, CK3 #### [address] [facility], [place] #### VD25H #### [facility] [address] [place] [address] Anion gap molar conc 6 Normal [facility] Comment on above: Performed By: #### H EMDF, PT, BMP3M, PHOS3, MG3, CK3 #### [address] [facility], [place] #### VD25H #### [facility] [address] [place] [address] CO2 molar conc 31 mmol/L High 22-30 [facility] Comment on above: Performed By: #### H EMDF, PT, BMP3M, PHOS3, MG3, CK3 #### [address] [facility], [place] #### VD25H #### [facility] [address] [place] [address] Creatinine mass conc 0.64 mg/dL Normal 0.52-1.25 [facility] Comment on above: Performed By: #### H EMDF, PT, BMP3M, PHOS3, MG3, CK3 #### [address] [address] #### VD25H #### [facility] [address] [place] [address] GFR/1.73 sq M predicted among blacks MDRD vol rate/area (S/P/Bld) mL/min/{1.73_m2} Normal >60 [facility] Comment on above: Performed By: #### H EMDF, PT, BMP3M, PHOS3, MG3, CK3 #### [address] #### VD25H #### [place] [place] [address] GFR/1.73 sq M predicted among non-blacks MDRD vol rate/area (S/P/Bld) mL/min/{1.73_m2} Normal >60 [facility] Comment on above: Result Comment: Sour ce- MDRD equation with creatinine calibration to IDMS(NKDEP) eGFR not recommended for drug dose adjustment Performed By: #### H EMDF, PT, BMP3M, PHOS3, MG3, CK3 #### [address] #### VD25H #### [facility] [address] [place] [address] Urea nitrogen mass conc 15 mg/dL Normal 7-20 [facility] Comment on above: Performed By: #### H EMDF, PT, BMP3M, PHOS3, MG3, CK3 #### [address] #### VD25H #### [facility] [address] [place] [address] Chloride molar conc 105 mmol/L Normal 98-107 [facility] Comment on above: Performed By: #### H EMDF, PT, BMP3M, PHOS3, MG3, CK3 #### [facility] [address] [place] [address] #### VD25H #### [facility] [address] [place] [address] Potassium molar conc 4.3 mmol/L Normal 3.5-5.1 [facility] Comment on above: Performed By: #### H EMDF, PT, BMP3M, PHOS3, MG3, CK3 #### [facility] [address] [place] [address] #### VD25H #### [facility] [address] [place] [address] Sodium molar conc 141 mmol/L Normal 135-145 [facility] Comment on above: Performed By: #### H EMDF, PT, BMP3M, PHOS3, MG3, CK3 #### [facility] [address] [place] [address] #### VD25H #### [facility] [address] [place] [address] CR Abdomen APon 07-19-2018 CR Abdomen AP Patient Name: AKTHYA HOOPER Diagnostic Radiology Exam Date/Time 07/19/2018 06:44:12 EDT Exam CR Abdomen AP Ordering Physician [id number] AGUILERA Accession Number [id number] CPT4 Codes 12859 () Reason For Exam ileus Report Abdomen: [...] Ordering Physician MARIA EUGENIA PEREZ Accession Number [id number] CPT4 Codes 25412 () Reason For Exam ETT placement Report [...] Glucose mass conc 95 mg/dL Normal 70-100 [facility] [employer] [facility] Comment on above: Result Comment: Test performed by glucose meter. Results may be 10%-15% lower than serum/plasma values. (CLIA ID [id number]) Performed By: #### H EMDF, PT, BMP3M, PHOS3, MG3, CK3 #### [facility] [employer] [address] [place] [address] #### VD25H #### [facility] [address] [place] [address] Hemogram w/ Autodiffon 07-19 Abs Baso Cnt 0.1 10*3/uL Normal 0.0-0.2 [facility] Comment on above: Performed By: #### H EMDF, PT, BMP3M, PHOS3, MG3, CK3 #### [address] [place], [place] #### VD25H #### [facility] [address] [place] [address] Abs Neutrophile Cnt 9.8 10*3/uL High 1.8-7.0 [facility] Comment on above: Performed By: #### H EMDF, PT, BMP3M, PHOS3, MG3, CK3 #### [address] [place], [place] #### VD25H #### [facility] [address] [place] [address] Basophils/100 WBC (Bld) 0.5 % Normal 0.0-2.0 [facility] Comment on above: Performed By: #### H EMDF, PT, BMP3M, PHOS3, MG3, CK3 #### [address] #### VD25H #### [facility] [address] [place] [address] Eosinophils #/vol (Bld) 0.3 10*3/uL Normal 0.0-0.5 [facility] Comment on above: Performed By: #### H EMDF, PT, BMP3M, PHOS3, MG3, CK3 #### [address] #### VD25H #### [facility] [address] [place] [address] Eosinophils/100 WBC (Bld) 2.5 % Normal 1.0-6.0 [facility] Comment on above: Performed By: #### H EMDF, PT, BMP3M, PHOS3, MG3, CK3 #### [address] #### VD25H #### [facility] [address] [place] [address] Erythrocyte distribution width Ratio (RBC) 13.3 % Normal 11.5-14.5 [facility] Comment on above: Performed By: #### H EMDF, PT, BMP3M, PHOS3, MG3, CK3 #### [facility] [address] [place] #### VD25H #### [facility] [address] [place] [address] Granulocytes/100 WBC (Bld) 80.4 % High 40.0-80.0 [facility] Comment on above: Performed By: #### H EMDF, PT, BMP3M, PHOS3, MG3, CK3 #### [address] #### VD25H #### [facility] [address] [place] [address] Hematocrit Volume Fraction (Bld) 30.6 % Low 40.0-52.0 [facility] Comment on above: Performed By: #### H EMDF, PT, BMP3M, PHOS3, MG3, CK3 #### [address] #### VD25H #### [facility] [address] [place] [place] [address] Hemoglobin mass conc (Bld) 10.5 g/dL Low 13.0-18.0 [facility] Comment on above: Performed By: #### H EMDF, PT, BMP3M, PHOS3, MG3, CK3 #### [place] [address] [place], [place] #### VD25H #### [facility] [address] [facility] [address] Lymphocytes #/vol (Bld) 1.1 10*3/uL Normal 1.0-4.3 [facility] Comment on above: Performed By: #### H EMDF, PT, BMP3M, PHOS3, MG3, CK3 #### [address] #### VD25H #### [facility] [address] [place] [address] Lymphocytes/100 WBC (Bld) 9.1 % Low 20.0-40.0 [facility] Comment on above: Performed By: #### H EMDF, PT, BMP3M, PHOS3, MG3, CK3 #### [address] [address] [place], [place] #### VD25H #### [facility] [address] [place] [address] MCH Entitic mass (RBC) 29.7 pg Normal 26.0-34.0 [facility] Comment on above: Performed By: #### H EMDF, PT, BMP3M, PHOS3, MG3, CK3 #### [address] #### VD25H #### [facility] [address] [place] [address] MCHC mass conc (RBC) 34.3 % Normal 32.0-36.0 [facility] Comment on above: Performed By: #### H EMDF, PT, BMP3M, PHOS3, MG3, CK3 #### [address] #### VD25H #### [facility] [address] [place] [address] MCV Entitic volume (RBC) 86.7 fL Normal 80.0-98.0 [facility] Comment on above: Performed By: #### H EMDF, PT, BMP3M, PHOS3, MG3, CK3 #### [address] #### VD25H #### [facility] [address] [place] [address] Monocytes #/vol (Bld) 0.9 10*3/uL High 0.0-0.8 [facility] Comment on above: Performed By: #### H EMDF, PT, BMP3M, PHOS3, MG3, CK3 #### [address] #### VD25H #### [facility] [address] [place] [address] Monocytes/100 WBC (Bld) 7.5 % Normal 2.0-10.0 [facility] Comment on above: Performed By: #### H EMDF, PT, BMP3M, PHOS3, MG3, CK3 #### [facility] [address] [place], [place] #### VD25H #### [facility] [address] [place] [address] Platelet mean volume Entitic volume (Bld) 7.3 fL Low 7.4-10.4 [facility] Comment on above: Performed By: #### H EMDF, PT, BMP3M, PHOS3, MG3, CK3 #### [address] #### VD25H #### [facility] [address] [place] [address] Platelets #/vol (Bld) 329 10*3/uL Normal 140-440 [facility] Comment on above: Performed By: #### H EMDF, PT, BMP3M, PHOS3, MG3, CK3 #### [address] #### VD25H #### [facility] [address] [place] [address] RBC #/vol (Bld) 3.53 10*6/uL Low 4.40-5.90 [facility] Comment on above: Performed By: #### H EMDF, PT, BMP3M, PHOS3, MG3, CK3 #### [address] [place] #### VD25H #### [facility] [address] [place] [address] WBC #/vol (Bld) 12.2 10*3/uL High 3.6-10.7 [facility] Comment on above: Performed By: #### H EMDF, PT, BMP3M, PHOS3, MG3, CK3 #### [address] #### VD25H #### [facility] [address] [place] [address] Magnesiumon 07-19-2018 Magnesium mass conc 2.3 mg/dL Normal 1.6-2.3 [facility] Comment on above: Performed By: #### H EMDF, PT, BMP3M, PHOS3, MG3, CK3 #### [facility] [address] [place], [place] #### VD25H #### [facility] [address] [place] [address] Procalcitoninon 07-19-2018 Protein mass conc 0.15 ng/mL Abnormal <0.10 [facility] Comment on above: Performed By: #### H EMDF, PT, BMP3M, PHOS3, MG3, CK3 #### [address] #### VD25H #### [facility] [address] [place] [address] Interpretation See Below Normal [facility] Comment on above: Result Comment: PCT <0.50 = Low risk of severe sepsis and/or septic shock. PCT >2.00 = High risk of severe sepsis and/or septic shock. Performed By: #### H EMDF, PT, BMP3M, PHOS3, MG3, CK3 #### [address] #### VD25H #### [facility] [address] [place] [address] VL Venous Duplex US Lower Ex t Bilateralon 07-19-2018 VL Venous Duplex US Lower Ext Bilateral Patient Name: KATHYA HOOPER Ultrasound Exam Date/Time 07/19/2018 11:10:14 EDT Exam VL Venous Duplex US Lower Ext Bilateral Ordering Physician ETIENNE MARTÍNEZ JULIE Accession Number [id number] CPT4 Codes 10998 () Reason For Exam edema Report [facility] --- Lower Extremity Venous Duplex Report Patient Name: Kathya Hooper : 1955 Study Date: 07/19/2018 W (63yrs) Age: 63 Account: [id number] Gender: M Loc: T209 BP: Ordering: Yesenia Martínez Technologist: Ordering Physician: Yesenia Martínez Calculation Clerk: León Chaidez RVT, [facility] Interpreting Physician: Ricardo Hall MD --- Location: [facility] --- INDICATIONS: Edema. bilateral calf edema. --- [...] performed. The images were obtained using a Insync E9 vascular ultrasound machine. --- VENOUS FLOW [...] --+ Electronically signed by: Ricardo Hall MD [id number] Final Dictated: 07/20/2018 10:49 am Dictating Physician: RICARDO HALL Signed Date and Time: 07/19/2018 11:03 am Signed by: RICARDO HALL Normal [facility] Basic Metabolic Panelon 06-30 Calcium mass conc 7.9 mg/dL Low 8.4-10.4 [facility] Comment on above: Performed By: #### H EMDF, PT, BMP3M, PHOS3, MG3, CK3 #### [facility] [address] [place], [place] #### VD25H #### [facility] [address] [place] [address] Glucose mass conc 113 mg/dL High 70-100 [facility] [employer] [facility] Comment on above: Performed By: #### H EMDF, PT, BMP3M, PHOS3, MG3, CK3 #### [facility] [address] [place] [address] #### VD25H #### [facility] [address] [place] [address] Anion gap molar conc 7 Normal [facility] Comment on above: Performed By: #### H EMDF, PT, BMP3M, PHOS3, MG3, CK3 #### [address] [place], [place] #### VD25H #### [facility] [address] [place] [address] CO2 molar conc 31 mmol/L High 22-30 [facility] Comment on above: Performed By: #### H EMDF, PT, BMP3M, PHOS3, MG3, CK3 #### [address] #### VD25H #### [facility] [address] [place] [address] Creatinine mass conc 0.59 mg/dL Normal 0.52-1.25 [facility] Comment on above: Performed By: #### H EMDF, PT, BMP3M, PHOS3, MG3, CK3 #### [address] #### VD25H #### [facility] [address] [place] [address] GFR/1.73 sq M predicted among blacks MDRD vol rate/area (S/P/Bld) mL/min/{1.73_m2} Normal >60 [facility] Comment on above: Performed By: #### H EMDF, PT, BMP3M, PHOS3, MG3, CK3 #### [address] #### VD25H #### [facility] [address] [place] [address] GFR/1.73 sq M predicted among non-blacks MDRD vol rate/area (S/P/Bld) mL/min/{1.73_m2} Normal >60 [facility] Comment on above: Result Comment: Sour ce- MDRD equation with creatinine calibration to IDMS(NKDEP) eGFR not recommended for drug dose adjustment Performed By: #### H EMDF, PT, BMP3M, PHOS3, MG3, CK3 #### [facility] [address] [place] #### VD25H #### [facility] [address] [place] [address] Urea nitrogen mass conc 19 mg/dL Normal 7-20 [facility] Comment on above: Performed By: #### H EMDF, PT, BMP3M, PHOS3, MG3, CK3 #### [facility] [address] [place] #### VD25H #### [facility] [address] [place] [address] Chloride molar conc 104 mmol/L Normal 98-107 [facility] Comment on above: Performed By: #### H EMDF, PT, BMP3M, PHOS3, MG3, CK3 #### [place] [address] [place], [place] #### VD25H #### [facility] [address] [place] [address] Potassium molar conc 3.4 mmol/L Low 3.5-5.1 [facility] Comment on above: Performed By: #### H EMDF, PT, BMP3M, PHOS3, MG3, CK3 #### [facility] [address] [place] #### VD25H #### [facility] [address] [place] [address] Sodium molar conc 142 mmol/L Normal 135-145 [facility] Comment on above: Performed By: #### H EMDF, PT, BMP3M, PHOS3, MG3, CK3 #### [address] [address] [place], [place] #### VD25H #### [facility] [address] [place] [address] CR Abdomen APon 07-18-2018 CR Abdomen AP Patient Name: KATHYA HOOPER Diagnostic Radiology Exam Date/Time 07/18/2018 06:52:18 EDT Exam CR Abdomen AP Ordering Physician [id number] -SHIRLEYJOYA Malave Accession Number [id number] CPT4 Codes 03161 () Reason For Exam ileus Report CLINICAL [...] Normal [facility] CR Chest Portableon 07-19-19 CR Chest Portable Patient Name: KATHYA HOOPER Diagnostic Radiology Exam Date/Time 07/18/2018 06:52:50 EDT Exam CR Chest Portable Ordering Physician MARIA EUGENIA PEREZ Accession Number [id number] CPT4 Codes 11800 () Reason For Exam ETT placement Report [...] Abs Baso Cnt 0.0 10*3/uL Normal 0.0-0.2 [facility] Comment on above: Performed By: #### H EMDF, PT, BMP3M, PHOS3, MG3, CK3 #### [address] #### VD25H #### [facility] [address] [place] [address] Abs Neutrophile Cnt 8.6 10*3/uL High 1.8-7.0 [facility] Comment on above: Performed By: #### H EMDF, PT, BMP3M, PHOS3, MG3, CK3 #### [address] #### VD25H #### [facility] [address] [place] [address] Basophils/100 WBC (Bld) 0.4 % Normal 0.0-2.0 [facility] Comment on above: Performed By: #### H EMDF, PT, BMP3M, PHOS3, MG3, CK3 #### [address] [address] [place], [place] #### VD25H #### [facility] [address] [place] [address] Eosinophils #/vol (Bld) 0.2 10*3/uL Normal 0.0-0.5 [facility] Comment on above: Performed By: #### H EMDF, PT, BMP3M, PHOS3, MG3, CK3 #### [address] #### VD25H #### [facility] [address] [place] [address] Eosinophils/100 WBC (Bld) 2.1 % Normal 1.0-6.0 [facility] Comment on above: Performed By: #### H EMDF, PT, BMP3M, PHOS3, MG3, CK3 #### [address] #### VD25H #### [facility] [address] [place] [address] Erythrocyte distribution width Ratio (RBC) 13.4 % Normal 11.5-14.5 [facility] Comment on above: Performed By: #### H EMDF, PT, BMP3M, PHOS3, MG3, CK3 #### [address] #### VD25H #### [facility] [address] [place] [address] Granulocytes/100 WBC (Bld) 80.0 % Normal 40.0-80.0 [facility] Comment on above: Performed By: #### H EMDF, PT, BMP3M, PHOS3, MG3, CK3 #### [address] #### VD25H #### [facility] [address] [place] [address] Hematocrit Volume Fraction (Bld) 37.3 % Low 40.0-52.0 [facility] Comment on above: Performed By: #### H EMDF, PT, BMP3M, PHOS3, MG3, CK3 #### [address] #### VD25H #### [facility] [address] [place] [address] Hemoglobin mass conc (Bld) 12.6 g/dL Low 13.0-18.0 [facility] Comment on above: Performed By: #### H EMDF, PT, BMP3M, PHOS3, MG3, CK3 #### [address] #### VD25H #### [facility] [address] [place] [address] Lymphocytes #/vol (Bld) 1.1 10*3/uL Normal 1.0-4.3 [facility] Comment on above: Performed By: #### H EMDF, PT, BMP3M, PHOS3, MG3, CK3 #### [address] #### VD25H #### [facility] [address] [place] [address] Lymphocytes/100 WBC (Bld) 10.3 % Low 20.0-40.0 [facility] Comment on above: Performed By: #### H EMDF, PT, BMP3M, PHOS3, MG3, CK3 #### [address] #### VD25H #### [place] [address] [place] [address] MCH Entitic mass (RBC) 29.4 pg Normal 26.0-34.0 [facility] Comment on above: Performed By: #### H EMDF, PT, BMP3M, PHOS3, MG3, CK3 #### [address] #### VD25H #### [place] [address] [place] [address] MCHC mass conc (RBC) 33.9 % Normal 32.0-36.0 [facility] Comment on above: Performed By: #### H EMDF, PT, BMP3M, PHOS3, MG3, CK3 #### [address] #### VD25H #### [facility] [address] [place] [address] MCV Entitic volume (RBC) 86.8 fL Normal 80.0-98.0 [facility] Comment on above: Performed By: #### H EMDF, PT, BMP3M, PHOS3, MG3, CK3 #### [address] #### VD25H #### [facility] [address] [place] [address] Monocytes #/vol (Bld) 0.8 10*3/uL Normal 0.0-0.8 [facility] Comment on above: Performed By: #### H EMDF, PT, BMP3M, PHOS3, MG3, CK3 #### [place] [address] [place] #### VD25H #### [facility] [address] [place] [address] Monocytes/100 WBC (Bld) 7.2 % Normal 2.0-10.0 [facility] Comment on above: Performed By: #### H EMDF, PT, BMP3M, PHOS3, MG3, CK3 #### [address] #### VD25H #### [facility] [address] [place] [address] Platelet mean volume Entitic volume (Bld) 7.8 fL Normal 7.4-10.4 [facility] Comment on above: Performed By: #### H EMDF, PT, BMP3M, PHOS3, MG3, CK3 #### [address] #### VD25H #### [facility] [address] [place] [address] Platelets #/vol (Bld) 301 10*3/uL Normal 140-440 [facility] Comment on above: Performed By: #### H EMDF, PT, BMP3M, PHOS3, MG3, CK3 #### [address] #### VD25H #### [facility] [address] [place] [address] RBC #/vol (Bld) 4.29 10*6/uL Low 4.40-5.90 [facility] Comment on above: Performed By: #### H EMDF, PT, BMP3M, PHOS3, MG3, CK3 #### [address] [place] #### VD25H #### [facility] [address] [place] [address] WBC #/vol (Bld) 10.8 10*3/uL High 3.6-10.7 [facility] Comment on above: Performed By: #### H EMDF, PT, BMP3M, PHOS3, MG3, CK3 #### [address] #### VD25H #### [facility] [address] [place] [address] Arterial Blood Gaseson 07-17 CO2 molar conc 29.7 mmol/L High 23.0-27.0 [facility] Comment on above: Performed By: #### H EMDF, PT, BMP3M, PHOS3, MG3, CK3 #### [address] #### VD25H #### [place] [address] [place] [address] HCO3 molar conc (Bld) 28.4 mmol/L High 21.0-25.0 [facility] Comment on above: Performed By: #### H EMDF, PT, BMP3M, PHOS3, MG3, CK3 #### [address] #### VD25H #### [facility] [address] [place] [address] Hemoglobin mass conc (Bld) 11.1 g/dL Normal [facility]Only [facility] Comment on above: Performed By: #### H EMDF, PT, BMP3M, PHOS3, MG3, CK3 #### [address] #### VD25H #### [place] [address] [place] [address] Oxygen ppres (Bld) 109.2 mm[Hg] High 80.0-100.0 [facility] Comment on above: Performed By: #### H EMDF, PT, BMP3M, PHOS3, MG3, CK3 #### [address] [address] [place], [place] #### VD25H #### [facility] [address] [place] [address] Oxygen saturation in Blood 97.8 % Normal 95.0-100.0 [facility] Comment on above: Performed By: #### H EMDF, PT, BMP3M, PHOS3, MG3, CK3 #### [address] [address] [place], [place] #### VD25H #### [facility] [address] [place] [address] pCO2 39.8 mm[Hg] Normal 35.0-45.0 [facility] Comment on above: Performed By: #### H EMDF, PT, BMP3M, PHOS3, MG3, CK3 #### [address] [place] [address] [place], [place] #### VD25H #### [facility] [address] [place] [address] pH (Bld) 7.472 High 7.350-7.450 [facility] Comment on above: Performed By: #### H EMDF, PT, BMP3M, PHOS3, MG3, CK3 #### [address] #### VD25H #### [facility] [address] [place] [address] Std Base Excess 4.5 mmol/L High -3.0-3.0 [facility] Comment on above: Performed By: #### H EMDF, PT, BMP3M, PHOS3, MG3, CK3 #### [address] [place], [place] #### VD25H #### [facility] [address] [place] [address] FIO2 60% Normal [facility] Comment on above: Performed By: #### H EMDF, PT, BMP3M, PHOS3, MG3, CK3 #### [place] [address] [place] #### VD25H #### [facility] [address] [place] [address] Basic Metabolic Panelon 06-29 Anion gap molar conc 6 Normal [facility] Comment on above: Performed By: #### H EMDF, PT, BMP3M, PHOS3, MG3, CK3 #### [place] [address] [address] [facility], [place] #### VD25H #### [facility] [address] [place] [address] Calcium mass conc 8.0 mg/dL Low 8.4-10.4 [facility] Comment on above: Performed By: #### H EMDF, PT, BMP3M, PHOS3, MG3, CK3 #### [place] [address] [place] #### VD25H #### [facility] [address] [place] [address] CO2 molar conc 31 mmol/L High 22-30 [facility] Comment on above: Performed By: #### H EMDF, PT, BMP3M, PHOS3, MG3, CK3 #### [address] [address] [place] #### VD25H #### [facility] [address] [place] [address] Glucose mass conc 107 mg/dL High 70-100 [facility] Comment on above: Performed By: #### H EMDF, PT, BMP3M, PHOS3, MG3, CK3 #### [place] [address] [address] [facility], [place] #### VD25H #### [facility] [address] [place] [address] Urea nitrogen mass conc 22 mg/dL High 7-20 [facility] Comment on above: Performed By: #### H EMDF, PT, BMP3M, PHOS3, MG3, CK3 #### [facility] [address] [place] #### VD25H #### [facility] [address] [place] [address] Creatinine mass conc 0.66 mg/dL Normal 0.52-1.25 [facility] Comment on above: Performed By: #### H EMDF, PT, BMP3M, PHOS3, MG3, CK3 #### [facility] [address] [place] #### VD25H #### [facility] [address] [place] [address] GFR/1.73 sq M predicted among blacks MDRD vol rate/area (S/P/Bld) mL/min/{1.73_m2} Normal >60 [facility] Comment on above: Performed By: #### H EMDF, PT, BMP3M, PHOS3, MG3, CK3 #### [address] #### VD25H #### [facility] [address] [place] [address] GFR/1.73 sq M predicted among non-blacks MDRD vol rate/area (S/P/Bld) mL/min/{1.73_m2} Normal >60 [facility] Comment on above: Result Comment: Sour ce- MDRD equation with creatinine calibration to IDMS(NKDEP) eGFR not recommended for drug dose adjustment Performed By: #### H EMDF, PT, BMP3M, PHOS3, MG3, CK3 #### [address] #### VD25H #### [facility] [address] [place] [address] Chloride molar conc 105 mmol/L Normal 98-107 [facility] Comment on above: Performed By: #### H EMDF, PT, BMP3M, PHOS3, MG3, CK3 #### [address] #### VD25H #### [facility] [address] [place] [address] Potassium molar conc 3.9 mmol/L Normal 3.5-5.1 [facility] Comment on above: Performed By: #### H EMDF, PT, BMP3M, PHOS3, MG3, CK3 #### [facility] [address] [place] [address] #### VD25H #### [facility] [address] [place] [address] Sodium molar conc 142 mmol/L Normal 135-145 [facility] Comment on above: Performed By: #### H EMDF, PT, BMP3M, PHOS3, MG3, CK3 #### [facility] [address] [place] [address] #### VD25H #### [facility] [address] [place] [address] CR Abdomen APon 07-17-2018 CR Abdomen AP Patient Name: KATHYA HOOPER Diagnostic Radiology Exam Date/Time 07/17/2018 12:46:31 EDT Exam CR Abdomen AP Ordering Physician JOYA ROJAS Accession Number [id number] CPT4 Codes 86892 () Reason For Exam ileus Report Abdomen: [...] EDT Exam CR Abdomen AP Ordering Physician [id number] JOYA PERRY Accession Number [id number] CPT4 Codes 20121 () Reason For Exam ileus Report Abdomen: [...] Normal [facility] CR Chest Portableon 07-18-19 CR Chest Portable Patient Name: KATHYA HOOPER Diagnostic Radiology Exam Date/Time 07/17/2018 18:08:41 EDT Exam CR Chest Portable Ordering Physician SALO DAVIS Accession Number [id number] CPT4 Codes 68050 () Reason For Exam picc Report CHEST [...] Portable Ordering Physician SALO DAVIS Accession Number [id number] CPT4 Codes 22430 () Reason For Exam reheck line tip [...] Transcribed Date and Time: 07/17/2018 7:21 Normal [facility] CR Chest Portable Patient Name: KATHYA HOOPER Diagnostic Radiology Exam Date/Time 07/17/2018 06:26:06 EDT Exam CR Chest Portable Ordering Physician MARIA EUGENIA PEREZ Accession Number [id number] CPT4 Codes 19402 () Reason For Exam ETT placement Report [...] Abs Baso Cnt 0.0 10*3/uL Normal 0.0-0.2 [facility] Comment on above: Performed By: #### H EMDF, PT, BMP3M, PHOS3, MG3, CK3 #### [facility] [address], [place] #### VD25H #### [facility] [address] [place] [address] Abs Neutrophile Cnt 8.1 10*3/uL High 1.8-7.0 [facility] Comment on above: Performed By: #### H EMDF, PT, BMP3M, PHOS3, MG3, CK3 #### [facility] [address], [place] #### VD25H #### [facility] [address] [place] [address] Basophils/100 WBC (Bld) 0.4 % Normal 0.0-2.0 [facility] Comment on above: Performed By: #### H EMDF, PT, BMP3M, PHOS3, MG3, CK3 #### [facility] [address] [place] [address] #### VD25H #### [facility] [address] [place] [address] Eosinophils #/vol (Bld) 0.1 10*3/uL Normal 0.0-0.5 [facility] Comment on above: Performed By: #### H EMDF, PT, BMP3M, PHOS3, MG3, CK3 #### [facility] [address] [place], [place] #### VD25H #### [facility] [address] [place] [address] Eosinophils/100 WBC (Bld) 1.4 % Normal 1.0-6.0 [facility] Comment on above: Performed By: #### H EMDF, PT, BMP3M, PHOS3, MG3, CK3 #### [place] [address] [place], [place] #### VD25H #### [facility] [address] [place] [address] Erythrocyte distribution width Ratio (RBC) 13.5 % Normal 11.5-14.5 [facility] Comment on above: Performed By: #### H EMDF, PT, BMP3M, PHOS3, MG3, CK3 #### [address] #### VD25H #### [facility] [address] [place] [address] Granulocytes/100 WBC (Bld) 78.6 % Normal 40.0-80.0 [facility] Comment on above: Performed By: #### H EMDF, PT, BMP3M, PHOS3, MG3, CK3 #### [address] [place], [place] #### VD25H #### [facility] [address] [place] [address] Hematocrit Volume Fraction (Bld) 31.3 % Low 40.0-52.0 [facility] Comment on above: Performed By: #### H EMDF, PT, BMP3M, PHOS3, MG3, CK3 #### [address] #### VD25H #### [facility] [address] [place] [address] Hemoglobin mass conc (Bld) 10.4 g/dL Low 13.0-18.0 [facility] Comment on above: Performed By: #### H EMDF, PT, BMP3M, PHOS3, MG3, CK3 #### [facility] [address] [place], [place] #### VD25H #### [facility] [address] [place] [address] Lymphocytes #/vol (Bld) 1.0 10*3/uL Normal 1.0-4.3 [facility] Comment on above: Performed By: #### H EMDF, PT, BMP3M, PHOS3, MG3, CK3 #### [address] #### VD25H #### [facility] [address] [place] [address] Lymphocytes/100 WBC (Bld) 10.0 % Low 20.0-40.0 [facility] Comment on above: Performed By: #### H EMDF, PT, BMP3M, PHOS3, MG3, CK3 #### [address] #### VD25H #### [facility] [address] [place] [address] MCH Entitic mass (RBC) 29.3 pg Normal 26.0-34.0 [facility] Comment on above: Performed By: #### H EMDF, PT, BMP3M, PHOS3, MG3, CK3 #### [address] [place], [place] #### VD25H #### [facility] [address] [place] [address] MCHC mass conc (RBC) 33.3 % Normal 32.0-36.0 [facility] Comment on above: Performed By: #### H EMDF, PT, BMP3M, PHOS3, MG3, CK3 #### [address] #### VD25H #### [facility] [address] [place] [address] MCV Entitic volume (RBC) 87.9 fL Normal 80.0-98.0 [facility] Comment on above: Performed By: #### H EMDF, PT, BMP3M, PHOS3, MG3, CK3 #### [address] [address] [place], [place] #### VD25H #### [facility] [address] [place] [address] Monocytes #/vol (Bld) 1.0 10*3/uL High 0.0-0.8 [facility] Comment on above: Performed By: #### H EMDF, PT, BMP3M, PHOS3, MG3, CK3 #### [address] #### VD25H #### [place] [address] [place] [address] Monocytes/100 WBC (Bld) 9.6 % Normal 2.0-10.0 [facility] Comment on above: Performed By: #### H EMDF, PT, BMP3M, PHOS3, MG3, CK3 #### [address] #### VD25H #### [facility] [address] [place] [address] Platelet mean volume Entitic volume (Bld) 7.6 fL Normal 7.4-10.4 [facility] Comment on above: Performed By: #### H EMDF, PT, BMP3M, PHOS3, MG3, CK3 #### [address] [place], [place] #### VD25H #### [facility] [address] [place] [address] Platelets #/vol (Bld) 307 10*3/uL Normal 140-440 [facility] Comment on above: Performed By: #### H EMDF, PT, BMP3M, PHOS3, MG3, CK3 #### [address] #### VD25H #### [facility] [address] [place] [address] RBC #/vol (Bld) 3.56 10*6/uL Low 4.40-5.90 [facility] Comment on above: Performed By: #### H EMDF, PT, BMP3M, PHOS3, MG3, CK3 #### [address] [place], [place] #### VD25H #### [facility] [address] [place] [address] WBC #/vol (Bld) 10.2 10*3/uL Normal 3.6-10.7 [facility] Comment on above: Performed By: #### H EMDF, PT, BMP3M, PHOS3, MG3, CK3 #### [address] #### VD25H #### [place] [address] [place] [address] Basic Metabolic Panelon 03- Calcium mass conc 8.1 mg/dL Low 8.4-10.4 [facility] Comment on above: Performed By: #### H EMDF, PT, BMP3M, PHOS3, MG3, CK3 #### [address] #### VD25H #### [place] [address] [place] [address] Anion gap molar conc 5 Normal [facility] Comment on above: Performed By: #### H EMDF, PT, BMP3M, PHOS3, MG3, CK3 #### [address] #### VD25H #### [facility] [address] [place] [address] CO2 molar conc 32 mmol/L High 22-30 [facility] Comment on above: Performed By: #### H EMDF, PT, BMP3M, PHOS3, MG3, CK3 #### [address] #### VD25H #### [facility] [address] [place] [facility] [place] [address] Creatinine mass conc 0.62 mg/dL Normal 0.52-1.25 [facility] Comment on above: Performed By: #### H EMDF, PT, BMP3M, PHOS3, MG3, CK3 #### [address] #### VD25H #### [facility] [address] [place] [address] GFR/1.73 sq M predicted among blacks MDRD vol rate/area (S/P/Bld) mL/min/{1.73_m2} Normal >60 [facility] Comment on above: Performed By: #### H EMDF, PT, BMP3M, PHOS3, MG3, CK3 #### [address] #### VD25H #### [place] [address] [place] [address] GFR/1.73 sq M predicted among non-blacks MDRD vol rate/area (S/P/Bld) mL/min/{1.73_m2} Normal >60 [facility] Comment on above: Result Comment: Sour ce- MDRD equation with creatinine calibration to IDMS(NKDEP) eGFR not recommended for drug dose adjustment Performed By: #### H EMDF, PT, BMP3M, PHOS3, MG3, CK3 #### [address] #### VD25H #### [facility] [address] [place] [address] Glucose mass conc 103 mg/dL High 70-100 [facility] Comment on above: Performed By: #### H EMDF, PT, BMP3M, PHOS3, MG3, CK3 #### [address] #### VD25H #### [place] [address] [place] [address] Urea nitrogen mass conc 20 mg/dL Normal 7-20 [facility] Comment on above: Performed By: #### H EMDF, PT, BMP3M, PHOS3, MG3, CK3 #### [facility] [address] [place] [address] #### VD25H #### [facility] [address] [place] [address] Chloride molar conc 107 mmol/L Normal 98-107 [facility] Comment on above: Performed By: #### H EMDF, PT, BMP3M, PHOS3, MG3, CK3 #### [place] [address] [place] [address] #### VD25H #### [place] [address] [place] [address] Potassium molar conc 3.7 mmol/L Normal 3.5-5.1 [facility] Comment on above: Performed By: #### H EMDF, PT, BMP3M, PHOS3, MG3, CK3 #### [address] [address] [place] [address] #### VD25H #### [facility] [address] [place] [address] Sodium molar conc 145 mmol/L Normal 135-145 [facility] Comment on above: Performed By: #### H EMDF, PT, BMP3M, PHOS3, MG3, CK3 #### [place] [address] [place] [address] #### VD25H #### [facility] [address] [place] [address] CR Abdomen APon 07-16-2018 CR Abdomen AP Patient Name: KATHYA HOOPER Diagnostic Radiology Exam Date/Time 07/16/2018 08:00:58 EDT Exam CR Abdomen AP Ordering Physician JOYA ROJAS Accession Number [id number] CPT4 Codes 82782 () Reason For Exam ileus Report KUB [...] Ordering Physician MARIA EUGENIA PEREZ Accession Number [id number] CPT4 Codes 09649 () Reason For Exam ETT placement Report [...] Abs Baso Cnt 0.0 10*3/uL Normal 0.0-0.2 [facility] Comment on above: Performed By: #### H EMDF, PT, BMP3M, PHOS3, MG3, CK3 #### [address] #### VD25H #### [facility] [address] [place] [place] [address] Abs Neutrophile Cnt 8.7 10*3/uL High 1.8-7.0 [facility] Comment on above: Performed By: #### H EMDF, PT, BMP3M, PHOS3, MG3, CK3 #### [address] #### VD25H #### [facility] [address] [place] [address] Basophils/100 WBC (Bld) 0.2 % Normal 0.0-2.0 [facility] Comment on above: Performed By: #### H EMDF, PT, BMP3M, PHOS3, MG3, CK3 #### [address] #### VD25H #### [facility] [address] [place] [address] Eosinophils #/vol (Bld) 0.1 10*3/uL Normal 0.0-0.5 [facility] Comment on above: Performed By: #### H EMDF, PT, BMP3M, PHOS3, MG3, CK3 #### [address] [address] #### VD25H #### [facility] [address] [place] [address] Eosinophils/100 WBC (Bld) 0.7 % Low 1.0-6.0 [facility] Comment on above: Performed By: #### H EMDF, PT, BMP3M, PHOS3, MG3, CK3 #### [address], [place] #### VD25H #### [facility] [address] [place] [address] Erythrocyte distribution width Ratio (RBC) 13.7 % Normal 11.5-14.5 [facility] Comment on above: Performed By: #### H EMDF, PT, BMP3M, PHOS3, MG3, CK3 #### [address] #### VD25H #### [facility] [address] [place] [address] Granulocytes/100 WBC (Bld) 83.0 % High 40.0-80.0 [facility] Comment on above: Performed By: #### H EMDF, PT, BMP3M, PHOS3, MG3, CK3 #### [address] #### VD25H #### [facility] [address] [place] [address] Hematocrit Volume Fraction (Bld) 30.3 % Low 40.0-52.0 [facility] Comment on above: Performed By: #### H EMDF, PT, BMP3M, PHOS3, MG3, CK3 #### [address] #### VD25H #### [facility] [address] [place] [address] Hemoglobin mass conc (Bld) 10.5 g/dL Low 13.0-18.0 [facility] Comment on above: Performed By: #### H EMDF, PT, BMP3M, PHOS3, MG3, CK3 #### [address] #### VD25H #### [facility] [address] [place] [address] Lymphocytes #/vol (Bld) 0.7 10*3/uL Low 1.0-4.3 [facility] Comment on above: Performed By: #### H EMDF, PT, BMP3M, PHOS3, MG3, CK3 #### [address] [place], [place] #### VD25H #### [facility] [address] [place] [address] Lymphocytes/100 WBC (Bld) 6.7 % Low 20.0-40.0 [facility] Comment on above: Performed By: #### H EMDF, PT, BMP3M, PHOS3, MG3, CK3 #### [address] #### VD25H #### [facility] [address] [facility] [address] MCH Entitic mass (RBC) 30.2 pg Normal 26.0-34.0 [facility] Comment on above: Performed By: #### H EMDF, PT, BMP3M, PHOS3, MG3, CK3 #### [address] #### VD25H #### [facility] [address] [facility] [place] [address] MCHC mass conc (RBC) 34.6 % Normal 32.0-36.0 [facility] Comment on above: Performed By: #### H EMDF, PT, BMP3M, PHOS3, MG3, CK3 #### [address] #### VD25H #### [facility] [address] [place] [address] MCV Entitic volume (RBC) 87.3 fL Normal 80.0-98.0 [facility] Comment on above: Performed By: #### H EMDF, PT, BMP3M, PHOS3, MG3, CK3 #### [address] #### VD25H #### [facility] [address] [facility] [place] [address] Monocytes #/vol (Bld) 1.0 10*3/uL High 0.0-0.8 [facility] Comment on above: Performed By: #### H EMDF, PT, BMP3M, PHOS3, MG3, CK3 #### [address] [place], [place] #### VD25H #### [facility] [address] [place] [address] Monocytes/100 WBC (Bld) 9.4 % Normal 2.0-10.0 [facility] Comment on above: Performed By: #### H EMDF, PT, BMP3M, PHOS3, MG3, CK3 #### [address] [place] #### VD25H #### [facility] [address] [place] [address] Platelet mean volume Entitic volume (Bld) 6.9 fL Low 7.4-10.4 [facility] Comment on above: Performed By: #### H EMDF, PT, BMP3M, PHOS3, MG3, CK3 #### [place] [place], [place] #### VD25H #### [facility] [address] [place] [address] Platelets #/vol (Bld) 254 10*3/uL Normal 140-440 [facility] Comment on above: Performed By: #### H EMDF, PT, BMP3M, PHOS3, MG3, CK3 #### [address] #### VD25H #### [facility] [address] [place] [address] RBC #/vol (Bld) 3.47 10*6/uL Low 4.40-5.90 [facility] Comment on above: Performed By: #### H EMDF, PT, BMP3M, PHOS3, MG3, CK3 #### [address] #### VD25H #### [facility] [address] [place] [address] WBC #/vol (Bld) 10.5 10*3/uL Normal 3.6-10.7 [facility] Comment on above: Performed By: #### H EMDF, PT, BMP3M, PHOS3, MG3, CK3 #### [address] #### VD25H #### [facility] [address] [place] [address] Arterial Blood Gaseson 07-15 CO2 molar conc 26.7 mmol/L Normal 23.0-27.0 [facility] Comment on above: Performed By: #### H EMDF, PT, BMP3M, PHOS3, MG3, CK3 #### [address] #### VD25H #### [facility] [address] [place] [address] FIO2 50% Normal [facility] Comment on above: Performed By: #### H EMDF, PT, BMP3M, PHOS3, MG3, CK3 #### [address] #### VD25H #### [facility] [address] [place] [address] HCO3 molar conc (Bld) 25.7 mmol/L High 21.0-25.0 [facility] Comment on above: Performed By: #### H EMDF, PT, BMP3M, PHOS3, MG3, CK3 #### [address] #### VD25H #### [facility] [address] [place] [address] Hemoglobin mass conc (Bld) 12.5 g/dL Normal ScreenOnly [facility] Comment on above: Performed By: #### H EMDF, PT, BMP3M, PHOS3, MG3, CK3 #### [address] #### VD25H #### [facility] [address] [place] [address] Oxygen ppres (Bld) 90.4 mm[Hg] Normal 80.0-100.0 [facility] Comment on above: Performed By: #### H EMDF, PT, BMP3M, PHOS3, MG3, CK3 #### [facility] [address] [place], [place] #### VD25H #### [facility] [address] [place] [address] Oxygen saturation in Blood 96.8 % Normal 95.0-100.0 [facility] Comment on above: Performed By: #### H EMDF, PT, BMP3M, PHOS3, MG3, CK3 #### [address] #### VD25H #### [facility] [address] [place] [address] pCO2 33.4 mm[Hg] Low 35.0-45.0 [facility] Comment on above: Performed By: #### H EMDF, PT, BMP3M, PHOS3, MG3, CK3 #### [address] #### VD25H #### [facility] [address] [place] [address] pH (Bld) 7.504 High 7.350-7.450 [facility] Comment on above: Performed By: #### H EMDF, PT, BMP3M, PHOS3, MG3, CK3 #### [address] #### VD25H #### [facility] [address] [place] [address] Std Base Excess 2.9 mmol/L Normal -3.0-3.0 [facility] Comment on above: Performed By: #### H EMDF, PT, BMP3M, PHOS3, MG3, CK3 #### [address] #### VD25H #### [facility] [address] [place] [address] Basic Metabolic Panelon 03-1 Anion gap molar conc 8 Normal [facility] Comment on above: Performed By: #### H EMDF, PT, BMP3M, PHOS3, MG3, CK3 #### [place] [address] [place], [place] #### VD25H #### [facility] [address] [place] [address] Calcium mass conc 8.6 mg/dL Normal 8.4-10.4 [facility] Comment on above: Performed By: #### H EMDF, PT, BMP3M, PHOS3, MG3, CK3 #### [place] [address] [place], [place] #### VD25H #### [facility] [address] [place] [address] CO2 molar conc 29 mmol/L Normal 22-30 [facility] Comment on above: Performed By: #### H EMDF, PT, BMP3M, PHOS3, MG3, CK3 #### [place] [address] [address] [facility], [place] #### VD25H #### [facility] [address] [place] [address] Glucose mass conc 119 mg/dL High 70-100 [facility] Comment on above: Performed By: #### H EMDF, PT, BMP3M, PHOS3, MG3, CK3 #### [place] [address] [place], [place] #### VD25H #### [facility] [address] [place] [address] Urea nitrogen mass conc 23 mg/dL High 7-20 [facility] Comment on above: Performed By: #### H EMDF, PT, BMP3M, PHOS3, MG3, CK3 #### [place] [address] [address] [facility], [place] #### VD25H #### [facility] [address] [place] [address] Creatinine mass conc 0.73 mg/dL Normal 0.52-1.25 [facility] Comment on above: Performed By: #### H EMDF, PT, BMP3M, PHOS3, MG3, CK3 #### [facility] [address] [place] [address] #### VD25H #### [facility] [address] [place] [address] GFR/1.73 sq M predicted among blacks MDRD vol rate/area (S/P/Bld) mL/min/{1.73_m2} Normal >60 [facility] Comment on above: Performed By: #### H EMDF, PT, BMP3M, PHOS3, MG3, CK3 #### [address] #### VD25H #### [facility] [address] [place] [address] GFR/1.73 sq M predicted among non-blacks MDRD vol rate/area (S/P/Bld) mL/min/{1.73_m2} Normal >60 [facility] Comment on above: Result Comment: Sour ce- MDRD equation with creatinine calibration to IDMS(NKDEP) eGFR not recommended for drug dose adjustment Performed By: #### H EMDF, PT, BMP3M, PHOS3, MG3, CK3 #### [address] #### VD25H #### [facility] [address] [place] [address] Potassium molar conc 4.1 mmol/L Normal 3.5-5.1 [facility] Comment on above: Performed By: #### H EMDF, PT, BMP3M, PHOS3, MG3, CK3 #### [address] #### VD25H #### [facility] [address] [place] [address] Sodium molar conc 144 mmol/L Normal 135-145 [facility] Comment on above: Performed By: #### H EMDF, PT, BMP3M, PHOS3, MG3, CK3 #### [place] [address] [place] [address] #### VD25H #### [facility] [address] [place] [address] Chloride molar conc 107 mmol/L Normal 98-107 [facility] Comment on above: Performed By: #### H EMDF, PT, BMP3M, PHOS3, MG3, CK3 #### [facility] [address] [facility] [place] [address] #### VD25H #### [facility] [address] [place] [address] CR Abdomen APon 07-15-2018 CR Abdomen AP Patient Name: KATHYA HOOPER Diagnostic Radiology Exam Date/Time 07/15/2018 09:25:44 EDT Exam CR Abdomen AP Ordering Physician JOYA ROJAS Accession Number [id number] CPT4 Codes 36982 () Reason For Exam ileus Report EXAMINATION: [...] Ordering Physician MARIA EUGENIA PEREZ Accession Number [id number] CPT4 Codes 77856 () Reason For Exam ETT placement Report [...] EMDF, PT, BMP3M, PHOS3, MG3, CK3 #### [facility] [address] [facility] [address] [place] [address] #### VD25H #### [facility] [address] [place] [address] Hemogram w/ Autodiffon 07-15 Abs Baso Cnt 0.0 10*3/uL Normal 0.0-0.2 [facility] Comment on above: Performed By: #### H EMDF, PT, BMP3M, PHOS3, MG3, CK3 #### [facility] [address] [place], [place] #### VD25H #### [facility] [address] [place] [address] Abs Neutrophile Cnt 13.2 10*3/uL High 1.8-7.0 [facility] Comment on above: Performed By: #### H EMDF, PT, BMP3M, PHOS3, MG3, CK3 #### [facility] [address] [place], [place] #### VD25H #### [facility] [address] [place] [address] Basophils/100 WBC (Bld) 0.2 % Normal 0.0-2.0 [facility] Comment on above: Performed By: #### H EMDF, PT, BMP3M, PHOS3, MG3, CK3 #### [address] #### VD25H #### [facility] [address] [place] [address] Eosinophils #/vol (Bld) 0.0 10*3/uL Normal 0.0-0.5 [facility] Comment on above: Performed By: #### H EMDF, PT, BMP3M, PHOS3, MG3, CK3 #### [address] #### VD25H #### [facility] [address] [place] [address] Eosinophils/100 WBC (Bld) 0.1 % Low 1.0-6.0 [facility] Comment on above: Performed By: #### H EMDF, PT, BMP3M, PHOS3, MG3, CK3 #### [address] #### VD25H #### [facility] [address] [place] [address] Erythrocyte distribution width Ratio (RBC) 13.9 % Normal 11.5-14.5 [facility] Comment on above: Performed By: #### H EMDF, PT, BMP3M, PHOS3, MG3, CK3 #### [place] [address] [place], [place] #### VD25H #### [facility] [address] [place] [address] Granulocytes/100 WBC (Bld) 88.1 % High 40.0-80.0 [facility] Comment on above: Performed By: #### H EMDF, PT, BMP3M, PHOS3, MG3, CK3 #### [place] [address] [place], [place] #### VD25H #### [facility] [address] [place] [address] Hematocrit Volume Fraction (Bld) 35.3 % Low 40.0-52.0 [facility] Comment on above: Performed By: #### H EMDF, PT, BMP3M, PHOS3, MG3, CK3 #### [place] [address] [place], [place] #### VD25H #### [facility] [address] [place] [address] Hemoglobin mass conc (Bld) 11.9 g/dL Low 13.0-18.0 [facility] Comment on above: Performed By: #### H EMDF, PT, BMP3M, PHOS3, MG3, CK3 #### [address] #### VD25H #### [facility] [address] [place] [address] Lymphocytes #/vol (Bld) 0.8 10*3/uL Low 1.0-4.3 [facility] Comment on above: Performed By: #### H EMDF, PT, BMP3M, PHOS3, MG3, CK3 #### [address] #### VD25H #### [facility] [address] [place] [address] Lymphocytes/100 WBC (Bld) 5.0 % Low 20.0-40.0 [facility] Comment on above: Performed By: #### H EMDF, PT, BMP3M, PHOS3, MG3, CK3 #### [address] [place] [address] [place], [place] #### VD25H #### [facility] [address] [place] [address] MCH Entitic mass (RBC) 29.5 pg Normal 26.0-34.0 [facility] Comment on above: Performed By: #### H EMDF, PT, BMP3M, PHOS3, MG3, CK3 #### [address] [place], [place] #### [id number] #### [facility] [address] [place] [address] MCHC mass conc (RBC) 33.8 % Normal 32.0-36.0 [facility] Comment on above: Performed By: #### H EMDF, PT, BMP3M, PHOS3, MG3, CK3 #### [address] #### [id number] #### [facility] [address] [place] [address] MCV Entitic volume (RBC) 87.2 fL Normal 80.0-98.0 [facility] Comment on above: Performed By: #### H EMDF, PT, BMP3M, PHOS3, MG3, CK3 #### [address] #### [id number] #### [facility] [address] [place] [address] Monocytes #/vol (Bld) 1.0 10*3/uL High 0.0-0.8 [facility] Comment on above: Performed By: #### H EMDF, PT, BMP3M, PHOS3, MG3, CK3 #### [address] #### [id number] #### [facility] [address] [place] [address] Monocytes/100 WBC (Bld) 6.6 % Normal 2.0-10.0 [facility] Comment on above: Performed By: #### H EMDF, PT, BMP3M, PHOS3, MG3, CK3 #### [facility] [address] [place], [place] #### [id number] #### [facility] [address] [place] [address] Platelet mean volume Entitic volume (Bld) 7.9 fL Normal 7.4-10.4 [facility] Comment on above: Performed By: #### H EMDF, PT, BMP3M, PHOS3, MG3, CK3 #### [address] #### VD25H #### [facility] [address] [place] [address] Platelets #/vol (Bld) 319 10*3/uL Normal 140-440 [facility] Comment on above: Performed By: #### H EMDF, PT, BMP3M, PHOS3, MG3, CK3 #### [address] #### VD25H #### [facility] [address] [place] [address] RBC #/vol (Bld) 4.05 10*6/uL Low 4.40-5.90 [facility] Comment on above: Performed By: #### H EMDF, PT, BMP3M, PHOS3, MG3, CK3 #### [address] #### VD25H #### [facility] [address] [place] [address] WBC #/vol (Bld) 15.0 10*3/uL High 3.6-10.7 [facility] Comment on above: Performed By: #### H EMDF, PT, BMP3M, PHOS3, MG3, CK3 #### [address] #### VD25H #### [facility] [address] [place] [address] Basic Metabolic Panelon 03- Anion gap molar conc 9 Normal [facility] Comment on above: Performed By: #### H EMDF, PT, BMP3M, PHOS3, MG3, CK3 #### [facility] [address] [place], [place] #### VD25H #### [facility] [address] [place] [address] Calcium mass conc 7.6 mg/dL Low 8.4-10.4 [facility] Comment on above: Performed By: #### H EMDF, PT, BMP3M, PHOS3, MG3, CK3 #### [place] [address] [place], [place] #### VD25H #### [facility] [address] [place] [address] CO2 molar conc 26 mmol/L Normal 22-30 [facility] Comment on above: Performed By: #### H EMDF, PT, BMP3M, PHOS3, MG3, CK3 #### [place] [address] [facility] [place] #### VD25H #### [facility] [address] [place] [address] Glucose mass conc 148 mg/dL High 70-100 [facility] Comment on above: Performed By: #### H EMDF, PT, BMP3M, PHOS3, MG3, CK3 #### [address] [address] [address] [place], [place] #### VD25H #### [facility] [address] [place] [address] Urea nitrogen mass conc 16 mg/dL Normal 7-20 [facility] Comment on above: Performed By: #### H EMDF, PT, BMP3M, PHOS3, MG3, CK3 #### [place] [address] [facility] [place] #### VD25H #### [facility] [address] [place] [address] Creatinine mass conc 0.62 mg/dL Normal 0.52-1.25 [facility] Comment on above: Performed By: #### H EMDF, PT, BMP3M, PHOS3, MG3, CK3 #### [address] #### VD25H #### [facility] [address] [place] [address] GFR/1.73 sq M predicted among blacks MDRD vol rate/area (S/P/Bld) mL/min/{1.73_m2} Normal >60 [facility] Comment on above: Performed By: #### H EMDF, PT, BMP3M, PHOS3, MG3, CK3 #### [address] #### VD25H #### [facility] [address] [place] [address] GFR/1.73 sq M predicted among non-blacks MDRD vol rate/area (S/P/Bld) mL/min/{1.73_m2} Normal >60 [facility] Comment on above: Result Comment: Sour ce- MDRD equation with creatinine calibration to IDMS(NKDEP) eGFR not recommended for drug dose adjustment Performed By: #### H EMDF, PT, BMP3M, PHOS3, MG3, CK3 #### [address] #### VD25H #### [facility] [address] [place] [address] Potassium molar conc 4.5 mmol/L Normal 3.5-5.1 [facility] Comment on above: Performed By: #### H EMDF, PT, BMP3M, PHOS3, MG3, CK3 #### [address] #### VD25H #### [facility] [address] [place] [address] Sodium molar conc 137 mmol/L Normal 135-145 [facility] Comment on above: Performed By: #### H EMDF, PT, BMP3M, PHOS3, MG3, CK3 #### [facility] [address] [place] [address] #### VD25H #### [facility] [address] [place] [address] Chloride molar conc 103 mmol/L Normal 98-107 [facility] Comment on above: Performed By: #### H EMDF, PT, BMP3M, PHOS3, MG3, CK3 #### [facility] [address] [facility] [place] [address] #### VD25H #### [facility] [address] [place] [address] CR Abdomen APon 07-14-2018 CR Abdomen AP Patient Name: KATHYA HOOPER Diagnostic Radiology Exam Date/Time 07/14/2018 19:15:43 EDT Exam CR Abdomen AP Ordering Physician [id number] JOYA PERRY Accession Number [id number] CPT4 Codes 66837 () Reason For Exam Distended with emesis [...] Ordering Physician MARIA EUGENIA PEREZ Accession Number [id number] CPT4 Codes 75741 () Reason For Exam ETT placement Report [...] Baso Cnt 0.0 10*3/uL Normal 0.0-0.2 [facility] Comment on above: Performed By: #### H EMDF, PT, BMP3M, PHOS3, MG3, CK3 #### [facility] [address] [place] [address] #### VD25H #### [facility] [address] [place] [address] Abs Neutrophile Cnt 11.7 10*3/uL High 1.8-7.0 [facility] Comment on above: Performed By: #### H EMDF, PT, BMP3M, PHOS3, MG3, CK3 #### [facility] [address] [place] [address] #### VD25H #### [facility] [address] [place] [address] Basophils/100 WBC (Bld) 0.3 % Normal 0.0-2.0 [facility] Comment on above: Performed By: #### H EMDF, PT, BMP3M, PHOS3, MG3, CK3 #### [facility] [address] [place], [place] #### VD25H #### [facility] [address] [place] [address] Eosinophils #/vol (Bld) 0.0 10*3/uL Normal 0.0-0.5 [facility] Comment on above: Performed By: #### H EMDF, PT, BMP3M, PHOS3, MG3, CK3 #### [address] [place], [place] #### VD25H #### [facility] [address] [place] [address] Eosinophils/100 WBC (Bld) 0.1 % Low 1.0-6.0 [facility] Comment on above: Performed By: #### H EMDF, PT, BMP3M, PHOS3, MG3, CK3 #### [address] #### VD25H #### [facility] [address] [place] [address] Erythrocyte distribution width Ratio (RBC) 13.8 % Normal 11.5-14.5 [facility] Comment on above: Performed By: #### H EMDF, PT, BMP3M, PHOS3, MG3, CK3 #### [address] #### VD25H #### [facility] [address] [place] [address] Granulocytes/100 WBC (Bld) 89.1 % High 40.0-80.0 [facility] Comment on above: Performed By: #### H EMDF, PT, BMP3M, PHOS3, MG3, CK3 #### [address] #### VD25H #### [facility] [address] [place] [address] Hematocrit Volume Fraction (Bld) 33.8 % Low 40.0-52.0 [facility] Comment on above: Performed By: #### H EMDF, PT, BMP3M, PHOS3, MG3, CK3 #### [address] [place], [place] #### VD25H #### [facility] [address] [place] [address] Hemoglobin mass conc (Bld) 11.5 g/dL Low 13.0-18.0 [facility] Comment on above: Performed By: #### H EMDF, PT, BMP3M, PHOS3, MG3, CK3 #### [address] [place] [address] [address] [place], [place] #### VD25H #### [facility] [address] [place] [address] Lymphocytes #/vol (Bld) 0.6 10*3/uL Low 1.0-4.3 [facility] Comment on above: Performed By: #### H EMDF, PT, BMP3M, PHOS3, MG3, CK3 #### [address] #### VD25H #### [facility] [address] [place] [address] Lymphocytes/100 WBC (Bld) 4.5 % Low 20.0-40.0 [facility] Comment on above: Performed By: #### H EMDF, PT, BMP3M, PHOS3, MG3, CK3 #### [address] #### VD25H #### [facility] [address] [place] [address] MCH Entitic mass (RBC) 29.6 pg Normal 26.0-34.0 [facility] Comment on above: Performed By: #### H EMDF, PT, BMP3M, PHOS3, MG3, CK3 #### [address] #### VD25H #### [facility] [address] [place] [address] MCHC mass conc (RBC) 33.9 % Normal 32.0-36.0 [facility] Comment on above: Performed By: #### H EMDF, PT, BMP3M, PHOS3, MG3, CK3 #### [address] [place], [place] #### VD25H #### [facility] [address] [place] [address] MCV Entitic volume (RBC) 87.3 fL Normal 80.0-98.0 [facility] Comment on above: Performed By: #### H EMDF, PT, BMP3M, PHOS3, MG3, CK3 #### [address] #### VD25H #### [place] [address] [place] [address] Monocytes #/vol (Bld) 0.8 10*3/uL Normal 0.0-0.8 [facility] Comment on above: Performed By: #### H EMDF, PT, BMP3M, PHOS3, MG3, CK3 #### [address] #### VD25H #### [facility] [address] [place] [address] Monocytes/100 WBC (Bld) 6.0 % Normal 2.0-10.0 [facility] Comment on above: Performed By: #### H EMDF, PT, BMP3M, PHOS3, MG3, CK3 #### [address] #### VD25H #### [facility] [address] [place] [address] Platelet mean volume Entitic volume (Bld) 8.1 fL Normal 7.4-10.4 [facility] Comment on above: Performed By: #### H EMDF, PT, BMP3M, PHOS3, MG3, CK3 #### [address] #### VD25H #### [facility] [address] [place] [address] Platelets #/vol (Bld) 196 10*3/uL Normal 140-440 [facility] Comment on above: Performed By: #### H EMDF, PT, BMP3M, PHOS3, MG3, CK3 #### [facility] [address] [place], [place] #### VD25H #### [facility] [address] [place] [address] RBC #/vol (Bld) 3.87 10*6/uL Low 4.40-5.90 [facility] Comment on above: Performed By: #### H EMDF, PT, BMP3M, PHOS3, MG3, CK3 #### [address] #### VD25H #### [facility] [address] [place] [address] WBC #/vol (Bld) 13.2 10*3/uL High 3.6-10.7 [facility] Comment on above: Performed By: #### H EMDF, PT, BMP3M, PHOS3, MG3, CK3 #### [address] #### VD25H #### [facility] [address] [place] [address] Add on test from HISon 07-13 Add on test from HIS Rejected Normal [facility] Comment on above: Result Comment: No s pecimen available for addon. Performed By: #### H EMDF, PT, BMP3M, PHOS3, MG3, CK3 #### [address] #### VD25H #### [facility] [address] [place] [address] Arterial Blood Gaseson 07-13 CO2 molar conc 25.6 mmol/L Normal 23.0-27.0 [facility] Comment on above: Performed By: #### H EMDF, PT, BMP3M, PHOS3, MG3, CK3 #### [address] #### VD25H #### [facility] [address] [place] [place] [address] HCO3 molar conc (Bld) 24.5 mmol/L Normal 21.0-25.0 [facility] Comment on above: Performed By: #### H EMDF, PT, BMP3M, PHOS3, MG3, CK3 #### [address] #### VD25H #### [facility] [address] [place] [address] Hemoglobin mass conc (Bld) 9.7 g/dL Normal [facility] Comment on above: Performed By: #### H EMDF, PT, BMP3M, PHOS3, MG3, CK3 #### [address] #### VD25H #### [place] [address] [place] [address] Oxygen ppres (Bld) 99.9 mm[Hg] Normal 80.0-100.0 [facility] Comment on above: Performed By: #### H EMDF, PT, BMP3M, PHOS3, MG3, CK3 #### [address] #### VD25H #### [facility] [address] [place] [address] Oxygen saturation in Blood 97.5 % Normal 95.0-100.0 [facility] Comment on above: Performed By: #### H EMDF, PT, BMP3M, PHOS3, MG3, CK3 #### [address] #### VD25H #### [facility] [address] [place] [address] pCO2 36.0 mm[Hg] Normal 35.0-45.0 [facility] Comment on above: Performed By: #### H EMDF, PT, BMP3M, PHOS3, MG3, CK3 #### [address] [place], [place] #### VD25H #### [facility] [address] [place] [address] pH (Bld) 7.450 Normal 7.350-7.450 [facility] Comment on above: Performed By: #### H EMDF, PT, BMP3M, PHOS3, MG3, CK3 #### [place] [address] [address] [facility], [place] #### VD25H #### [facility] [address] [place] [address] Std Base Excess 0.6 mmol/L Normal -3.0-3.0 [facility] Comment on above: Performed By: #### H EMDF, PT, BMP3M, PHOS3, MG3, CK3 #### [address] #### VD25H #### [place] [address] [place] [address] FIO2 .50 Normal [facility] Comment on above: Performed By: #### H EMDF, PT, BMP3M, PHOS3, MG3, CK3 #### [address], [place] #### VD25H #### [facility] [address] [place] [address] Basic Metabolic Panelon 03-1 Calcium mass conc 7.6 mg/dL Low 8.4-10.4 [facility] Comment on above: Performed By: #### H EMDF, PT, BMP3M, PHOS3, MG3, CK3 #### [address], [place] #### VD25H #### [facility] [address] [place] [address] Glucose mass conc 120 mg/dL High 70-100 [facility] Comment on above: Performed By: #### H EMDF, PT, BMP3M, PHOS3, MG3, CK3 #### [address] [place], [place] #### VD25H #### [facility] [address] [place] [address] Anion gap molar conc 7 Normal [facility] Comment on above: Performed By: #### H EMDF, PT, BMP3M, PHOS3, MG3, CK3 #### [place] [address] [place], [place] #### VD25H #### [facility] [address] [place] [address] CO2 molar conc 27 mmol/L Normal 22-30 [facility] Comment on above: Performed By: #### H EMDF, PT, BMP3M, PHOS3, MG3, CK3 #### [address] #### VD25H #### [facility] [address] [place] [address] Creatinine mass conc 0.62 mg/dL Normal 0.52-1.25 [facility] Comment on above: Performed By: #### H EMDF, PT, BMP3M, PHOS3, MG3, CK3 #### [address] #### VD25H #### [facility] [address] [place] [address] GFR/1.73 sq M predicted among blacks MDRD vol rate/area (S/P/Bld) mL/min/{1.73_m2} Normal >60 [facility] Comment on above: Performed By: #### H EMDF, PT, BMP3M, PHOS3, MG3, CK3 #### [address] #### VD25H #### [facility] [address] [place] [address] GFR/1.73 sq M predicted among non-blacks MDRD vol rate/area (S/P/Bld) mL/min/{1.73_m2} Normal >60 [facility] Comment on above: Result Comment: Sour ce- MDRD equation with creatinine calibration to IDMS(NKDEP) eGFR not recommended for drug dose adjustment Performed By: #### H EMDF, PT, BMP3M, PHOS3, MG3, CK3 #### [facility] [address] [place], [place] #### VD25H #### [facility] [address] [place] [address] Urea nitrogen mass conc 17 mg/dL Normal 7-20 [facility] Comment on above: Performed By: #### H EMDF, PT, BMP3M, PHOS3, MG3, CK3 #### [place] [address] [address] [place], [place] #### VD25H #### [facility] [address] [place] [address] Chloride molar conc 105 mmol/L Normal 98-107 [facility] Comment on above: Performed By: #### H EMDF, PT, BMP3M, PHOS3, MG3, CK3 #### [place] [address] [address] [place], [place] #### VD25H #### [facility] [address] [place] [address] Potassium molar conc 3.8 mmol/L Normal 3.5-5.1 [facility] Comment on above: Performed By: #### H EMDF, PT, BMP3M, PHOS3, MG3, CK3 #### [place] [address] [address] [place], [place] #### VD25H #### [facility] [address] [place] [address] Sodium molar conc 139 mmol/L Normal 135-145 [facility] Comment on above: Performed By: #### H EMDF, PT, BMP3M, PHOS3, MG3, CK3 #### [place] [address] [address] [place], [place] #### VD25H #### [facility] [address] [place] [address] CR Chest Portableon 07-14-19 19 CR Chest Portable Patient Name: KATHYA HOOPER Diagnostic Radiology Exam Date/Time 07/13/2018 06:05:45 EDT Exam CR Chest Portable Ordering Physician MARIA EUGENIA PEREZ Accession Number [id number] CPT4 Codes 31176 () Reason For Exam ETT placement Report [...] PHOS3, MG3, CK3 #### [facility] [address] [place] [address] #### VD25H #### [facility] [address] [place] [address] pH, Ionized Calcium 7.40 Normal 7.31-7.46 [facility] Comment on above: Performed By: #### H EMDF, PT, BMP3M, PHOS3, MG3, CK3 #### [facility] [address] [place], [place] #### VD25H #### [facility] [address] [place] [address] Hemogram w/ Autodiffon 07-13 Abs Baso Cnt 0.0 10*3/uL Normal 0.0-0.2 [facility] Comment on above: Performed By: #### H EMDF, PT, BMP3M, PHOS3, MG3, CK3 #### [address] #### VD25H #### [facility] [address] [place] [address] Abs Neutrophile Cnt 11.2 10*3/uL High 1.8-7.0 [facility] Comment on above: Performed By: #### H EMDF, PT, BMP3M, PHOS3, MG3, CK3 #### [address] #### VD25H #### [facility] [address] [place] [address] Basophils/100 WBC (Bld) 0.3 % Normal 0.0-2.0 [facility] Comment on above: Performed By: #### H EMDF, PT, BMP3M, PHOS3, MG3, CK3 #### [address] #### VD25H #### [facility] [address] [place] [address] Eosinophils #/vol (Bld) 0.2 10*3/uL Normal 0.0-0.5 [facility] Comment on above: Performed By: #### H EMDF, PT, BMP3M, PHOS3, MG3, CK3 #### [address] #### VD25H #### [facility] [address] [place] [address] Eosinophils/100 WBC (Bld) 1.1 % Normal 1.0-6.0 [facility] Comment on above: Performed By: #### H EMDF, PT, BMP3M, PHOS3, MG3, CK3 #### [facility] [address] [place], [place] #### VD25H #### [facility] [address] [place] [place] [address] Erythrocyte distribution width Ratio (RBC) 13.9 % Normal 11.5-14.5 [facility] Comment on above: Performed By: #### H EMDF, PT, BMP3M, PHOS3, MG3, CK3 #### [address] #### VD25H #### [facility] [address] [place] [place] [address] Granulocytes/100 WBC (Bld) 82.2 % High 40.0-80.0 [facility] Comment on above: Performed By: #### H EMDF, PT, BMP3M, PHOS3, MG3, CK3 #### [address] #### VD25H #### [facility] [address] [place] [address] Hematocrit Volume Fraction (Bld) 36.7 % Low 40.0-52.0 [facility] Comment on above: Performed By: #### H EMDF, PT, BMP3M, PHOS3, MG3, CK3 #### [address] #### VD25H #### [facility] [address] [place] [address] Hemoglobin mass conc (Bld) 12.6 g/dL Low 13.0-18.0 [facility] Comment on above: Performed By: #### H EMDF, PT, BMP3M, PHOS3, MG3, CK3 #### [address] #### VD25H #### [facility] [address] [place] [address] Lymphocytes #/vol (Bld) 1.1 10*3/uL Normal 1.0-4.3 [facility] Comment on above: Performed By: #### H EMDF, PT, BMP3M, PHOS3, MG3, CK3 #### [place] [address] [address] [place], [place] #### VD25H #### [facility] [address] [place] [address] Lymphocytes/100 WBC (Bld) 8.2 % Low 20.0-40.0 [facility] Comment on above: Performed By: #### H EMDF, PT, BMP3M, PHOS3, MG3, CK3 #### [place] [address] [address] [place], [place] #### VD25H #### [facility] [address] [place] [address] MCH Entitic mass (RBC) 29.6 pg Normal 26.0-34.0 [facility] Comment on above: Performed By: #### H EMDF, PT, BMP3M, PHOS3, MG3, CK3 #### [place] [address] [address] [place], [place] #### VD25H #### [facility] [address] [place] [address] MCHC mass conc (RBC) 34.4 % Normal 32.0-36.0 [facility] Comment on above: Performed By: #### H EMDF, PT, BMP3M, PHOS3, MG3, CK3 #### [place] [address] [place], [place] #### VD25H #### [facility] [address] [place] [place] [address] MCV Entitic volume (RBC) 86.2 fL Normal 80.0-98.0 [facility] Comment on above: Performed By: #### H EMDF, PT, BMP3M, PHOS3, MG3, CK3 #### [address] #### VD25H #### [facility] [address] [place] [address] Monocytes #/vol (Bld) 1.1 10*3/uL High 0.0-0.8 [facility] Comment on above: Performed By: #### H EMDF, PT, BMP3M, PHOS3, MG3, CK3 #### [facility] [address] [place], [place] #### VD25H #### [facility] [address] [place] [address] Monocytes/100 WBC (Bld) 8.2 % Normal 2.0-10.0 [facility] Comment on above: Performed By: #### H EMDF, PT, BMP3M, PHOS3, MG3, CK3 #### [place] [address] [address] [place], [place] #### VD25H #### [facility] [address] [place] [address] Platelet mean volume Entitic volume (Bld) 8.1 fL Normal 7.4-10.4 [facility] Comment on above: Performed By: #### H EMDF, PT, BMP3M, PHOS3, MG3, CK3 #### [place] [address] [address] [place], [place] #### VD25H #### [facility] [address] [place] [address] Platelets #/vol (Bld) 194 10*3/uL Normal 140-440 [facility] Comment on above: Performed By: #### H EMDF, PT, BMP3M, PHOS3, MG3, CK3 #### [facility] [address] [place], [place] #### VD25H #### [facility] [address] [place] [address] RBC #/vol (Bld) 4.26 10*6/uL Low 4.40-5.90 [facility] Comment on above: Performed By: #### H EMDF, PT, BMP3M, PHOS3, MG3, CK3 #### [address] [facility], [place] #### VD25H #### [facility] [address] [place] [address] WBC #/vol (Bld) 13.7 10*3/uL High 3.6-10.7 [facility] Comment on above: Performed By: #### H EMDF, PT, BMP3M, PHOS3, MG3, CK3 #### [address] #### VD25H #### [facility] [address] [place] [address] Arterial Blood Gaseson 07-12 CO2 molar conc 26.4 mmol/L Normal 23.0-27.0 [facility] Comment on above: Performed By: #### H EMDF, PT, BMP3M, PHOS3, MG3, CK3 #### [address] #### VD25H #### [facility] [address] [place] [address] HCO3 molar conc (Bld) 25.2 mmol/L High 21.0-25.0 [facility] Comment on above: Performed By: #### H EMDF, PT, BMP3M, PHOS3, MG3, CK3 #### [address] #### VD25H #### [facility] [address] [place] [address] Hemoglobin mass conc (Bld) 13.9 g/dL Normal [facility] Comment on above: Performed By: #### H EMDF, PT, BMP3M, PHOS3, MG3, CK3 #### [address] #### VD25H #### [facility] [address] [place] [address] Oxygen ppres (Bld) 83.9 mm[Hg] Normal 80.0-100.0 [facility] Comment on above: Performed By: #### H EMDF, PT, BMP3M, PHOS3, MG3, CK3 #### [address] #### VD25H #### [facility] [address] [place] [address] Oxygen saturation in Blood 96.3 % Normal 95.0-100.0 [facility] Comment on above: Performed By: #### H EMDF, PT, BMP3M, PHOS3, MG3, CK3 #### [place] [address] [address] [place], [place] #### VD25H #### [facility] [address] [place] [address] pCO2 38.2 mm[Hg] Normal 35.0-45.0 [facility] Comment on above: Performed By: #### H EMDF, PT, BMP3M, PHOS3, MG3, CK3 #### [address] [facility], [place] #### VD25H #### [place] [address] [place] [address] pH (Bld) 7.437 Normal 7.350-7.450 [facility] Comment on above: Performed By: #### H EMDF, PT, BMP3M, PHOS3, MG3, CK3 #### [address] [facility], [place] #### VD25H #### [facility] [address] [place] [address] Std Base Excess 1.1 mmol/L Normal -3.0-3.0 [facility] Comment on above: Performed By: #### H EMDF, PT, BMP3M, PHOS3, MG3, CK3 #### [address] [facility], [place] #### [id number] #### [facility] [address] [place] [address] FIO2 50% Normal [facility] Comment on above: Performed By: #### H EMDF, PT, BMP3M, PHOS3, MG3, CK3 #### [place] [address] [place], [place] #### [id number] #### [facility] [address] [place] [address] CO2 molar conc 27.2 mmol/L High 23.0-27.0 [facility] Comment on above: Performed By: #### H EMDF, PT, BMP3M, PHOS3, MG3, CK3 #### [place] [address] [address] [place], [place] #### [id number] #### [facility] [address] [place] [address] HCO3 molar conc (Bld) 26.1 mmol/L High 21.0-25.0 [facility] Comment on above: Performed By: #### H EMDF, PT, BMP3M, PHOS3, MG3, CK3 #### [address] #### [id number] #### [place] [address] [place] [address] Hemoglobin mass conc (Bld) 14.7 g/dL Normal ScreenOnly [facility] Comment on above: Performed By: #### H EMDF, PT, BMP3M, PHOS3, MG3, CK3 #### [address] #### [id number] #### [place] [address] [place] [address] Oxygen ppres (Bld) 125.7 mm[Hg] High 80.0-100.0 [facility] Comment on above: Performed By: #### H EMDF, PT, BMP3M, PHOS3, MG3, CK3 #### [address] #### VD25H #### [place] [address] [place] [address] Oxygen saturation in Blood 98.6 % Normal 95.0-100.0 [facility] [facility] Comment on above: Performed By: #### H EMDF, PT, BMP3M, PHOS3, MG3, CK3 #### [address] #### VD25H #### [facility] [address] [place] [address] pCO2 37.5 mm[Hg] Normal 35.0-45.0 [facility] Comment on above: Performed By: #### H EMDF, PT, BMP3M, PHOS3, MG3, CK3 #### [place] [address] [place], [place] #### VD25H #### [facility] [address] [place] [address] pH (Bld) 7.460 High 7.350-7.450 [facility] Comment on above: Performed By: #### H EMDF, PT, BMP3M, PHOS3, MG3, CK3 #### [place] [address] [address] [facility], [place] #### VD25H #### [place] [address] [place] [address] Std Base Excess 2.4 mmol/L Normal -3.0-3.0 [facility] Comment on above: Performed By: #### H EMDF, PT, BMP3M, PHOS3, MG3, CK3 #### [place] [address] [address] [facility], [place] #### VD25H #### [facility] [address] [place] [address] FIO2 62.5 Normal [facility] Comment on above: Performed By: #### H EMDF, PT, BMP3M, PHOS3, MG3, CK3 #### [place] [address] [address] [facility], [place] #### VD25H #### [facility] [address] [place] [address] Basic Metabolic Panelon 06-29 Anion gap molar conc 6 Normal [facility] Comment on above: Performed By: #### H EMDF, PT, BMP3M, PHOS3, MG3, CK3 #### [place] [address] [address] [facility], [place] #### VD25H #### [facility] [address] [place] [address] Calcium mass conc 8.0 mg/dL Low 8.4-10.4 [facility] Comment on above: Performed By: #### H EMDF, PT, BMP3M, PHOS3, MG3, CK3 #### [facility] [address] [place] [address] #### VD25H #### [facility] [address] [place] [address] CO2 molar conc 28 mmol/L Normal 22-30 [facility] Comment on above: Performed By: #### H EMDF, PT, BMP3M, PHOS3, MG3, CK3 #### [address] #### VD25H #### [facility] [address] [facility] [address] Creatinine mass conc 0.62 mg/dL Normal 0.52-1.25 [facility] Comment on above: Performed By: #### H EMDF, PT, BMP3M, PHOS3, MG3, CK3 #### [facility] [address] [place] [address] #### VD25H #### [facility] [address] [place] [address] GFR/1.73 sq M predicted among blacks MDRD vol rate/area (S/P/Bld) mL/min/{1.73_m2} Normal >60 [facility] Comment on above: Performed By: #### H EMDF, PT, BMP3M, PHOS3, MG3, CK3 #### [address] [address] #### VD25H #### [facility] [address] [place] [address] GFR/1.73 sq M predicted among non-blacks MDRD vol rate/area (S/P/Bld) mL/min/{1.73_m2} Normal >60 [facility] Comment on above: Result Comment: Sour ce- MDRD equation with creatinine calibration to IDMS(NKDEP) eGFR not recommended for drug dose adjustment Performed By: #### H EMDF, PT, BMP3M, PHOS3, MG3, CK3 #### [place] [address] [address] [facility] #### VD25H #### [facility] [address] [place] [address] Glucose mass conc 125 mg/dL High 70-100 [facility] Comment on above: Performed By: #### H EMDF, PT, BMP3M, PHOS3, MG3, CK3 #### [place] [address] [address] [facility], [place] #### VD25H #### [facility] [address] [place] [address] Urea nitrogen mass conc 12 mg/dL Normal 7-20 [facility] Comment on above: Performed By: #### H EMDF, PT, BMP3M, PHOS3, MG3, CK3 #### [place] [address] [address] [facility] #### VD25H #### [facility] [address] [place] [address] Chloride molar conc 104 mmol/L Normal 98-107 [facility] Comment on above: Performed By: #### H EMDF, PT, BMP3M, PHOS3, MG3, CK3 #### [place] [address] [address] [facility] #### VD25H #### [facility] [address] [place] [address] Potassium molar conc 3.6 mmol/L Normal 3.5-5.1 [facility] Comment on above: Performed By: #### H EMDF, PT, BMP3M, PHOS3, MG3, CK3 #### [place] [address] [address] [facility] #### VD25H #### [facility] [address] [place] [address] Sodium molar conc 138 mmol/L Normal 135-145 [facility] Comment on above: Performed By: #### H EMDF, PT, BMP3M, PHOS3, MG3, CK3 #### [facility] [address] [place] [address] #### VD25H #### [facility] [address] [place] [address] CR Chest Portableon 07-13-19 CR Chest Portable Patient Name: KATHYA HOOPER Diagnostic Radiology Exam Date/Time 07/12/2018 10:18:11 EDT Exam CR Chest Portable Ordering Physician MARIA EUGENIA PEREZ Accession Number [id number] CPT4 Codes 70019 () Reason For Exam ETT Placement Report [...] Dictated: 07/12/2018 1:21 pm Dictating Physician: MD JENNIFER, FELICIANO Stevens Signed Date and Time: 07/12/2018 1:23 pm Signed by: MD RODRIGUEZ JONATHAN R Transcribed Date and Time: 07/12/2018 1:21 Normal [facility] CR Chest Portable Patient Name: KATHYA HOOPER Diagnostic Radiology Exam Date/Time 07/12/2018 06:19:03 EDT Exam CR Chest Portable Ordering Physician MD NATENICOLE Accession Number [id number] CPT4 Codes 24562 () Reason For Exam dyspnea Report PORTABLE [...] Abs Baso Cnt 0.0 10*3/uL Normal 0.0-0.2 [facility] Comment on above: Performed By: #### H EMDF, PT, BMP3M, PHOS3, MG3, CK3 #### [facility] [address] [place] [address] #### VD25H #### [facility] [address] [place] [address] Abs Neutrophile Cnt 10.2 10*3/uL High 1.8-7.0 [facility] Comment on above: Performed By: #### H EMDF, PT, BMP3M, PHOS3, MG3, CK3 #### [facility] [address] [place], [place] #### VD25H #### [facility] [address] [place] [address] Basophils/100 WBC (Bld) 0.4 % Normal 0.0-2.0 [facility] Comment on above: Performed By: #### H EMDF, PT, BMP3M, PHOS3, MG3, CK3 #### [facility] [address] [place], [place] #### VD25H #### [facility] [address] [place] [address] Eosinophils #/vol (Bld) 0.1 10*3/uL Normal 0.0-0.5 [facility] Comment on above: Performed By: #### H EMDF, PT, BMP3M, PHOS3, MG3, CK3 #### [place] [address] [place], [place] #### VD25H #### [facility] [address] [place] [address] Eosinophils/100 WBC (Bld) 0.6 % Low 1.0-6.0 [facility] Comment on above: Performed By: #### H EMDF, PT, BMP3M, PHOS3, MG3, CK3 #### [place] [address] [place], [place] #### VD25H #### [facility] [address] [place] [address] Erythrocyte distribution width Ratio (RBC) 13.5 % Normal 11.5-14.5 [facility] Comment on above: Performed By: #### H EMDF, PT, BMP3M, PHOS3, MG3, CK3 #### [place] [address] [place], [place] #### VD25H #### [facility] [address] [place] [address] Granulocytes/100 WBC (Bld) 84.7 % High 40.0-80.0 [facility] Comment on above: Performed By: #### H EMDF, PT, BMP3M, PHOS3, MG3, CK3 #### [address] [place], [place] #### VD25H #### [facility] [address] [place] [address] Hematocrit Volume Fraction (Bld) 39.7 % Low 40.0-52.0 [facility] Comment on above: Performed By: #### H EMDF, PT, BMP3M, PHOS3, MG3, CK3 #### [address] #### VD25H #### [facility] [address] [place] [address] Hemoglobin mass conc (Bld) 13.5 g/dL Normal 13.0-18.0 [facility] Comment on above: Performed By: #### H EMDF, PT, BMP3M, PHOS3, MG3, CK3 #### [address] #### VD25H #### [facility] [address] [place] [address] Lymphocytes #/vol (Bld) 0.9 10*3/uL Low 1.0-4.3 [facility] Comment on above: Performed By: #### H EMDF, PT, BMP3M, PHOS3, MG3, CK3 #### [address] #### VD25H #### [facility] [address] [place] [address] Lymphocytes/100 WBC (Bld) 7.6 % Low 20.0-40.0 [facility] Comment on above: Performed By: #### H EMDF, PT, BMP3M, PHOS3, MG3, CK3 #### [address] #### VD25H #### [facility] [address] [place] [address] MCH Entitic mass (RBC) 29.6 pg Normal 26.0-34.0 [facility] Comment on above: Performed By: #### H EMDF, PT, BMP3M, PHOS3, MG3, CK3 #### [address] #### VD25H #### [facility] [address] [place] [address] MCHC mass conc (RBC) 34.1 % Normal 32.0-36.0 [facility] Comment on above: Performed By: #### H EMDF, PT, BMP3M, PHOS3, MG3, CK3 #### [address] #### VD25H #### [facility] [address] [place] [address] MCV Entitic volume (RBC) 87.0 fL Normal 80.0-98.0 [facility] Comment on above: Performed By: #### H EMDF, PT, BMP3M, PHOS3, MG3, CK3 #### [address] #### VD25H #### [place] [address] [place] [address] Monocytes #/vol (Bld) 0.8 10*3/uL Normal 0.0-0.8 [facility] Comment on above: Performed By: #### H EMDF, PT, BMP3M, PHOS3, MG3, CK3 #### [address] #### VD25H #### [place] [address] [place] [address] Monocytes/100 WBC (Bld) 6.7 % Normal 2.0-10.0 [facility] Comment on above: Performed By: #### H EMDF, PT, BMP3M, PHOS3, MG3, CK3 #### [address] #### VD25H #### [place] [address] [place] [address] Platelet mean volume Entitic volume (Bld) 8.4 fL Normal 7.4-10.4 [facility] Comment on above: Performed By: #### H EMDF, PT, BMP3M, PHOS3, MG3, CK3 #### [facility] [address] [place], [place] #### VD25H #### [facility] [address] [place] [address] Platelets #/vol (Bld) 185 10*3/uL Normal 140-440 [facility] Comment on above: Performed By: #### H EMDF, PT, BMP3M, PHOS3, MG3, CK3 #### [address] [address] [place], [place] #### VD25H #### [facility] [address] [facility] [address] RBC #/vol (Bld) 4.57 10*6/uL Normal 4.40-5.90 [facility] Comment on above: Performed By: #### H EMDF, PT, BMP3M, PHOS3, MG3, CK3 #### [place] [address] [place] #### VD25H #### [facility] [address] [facility] [place] [address] WBC #/vol (Bld) 12.1 10*3/uL High 3.6-10.7 [facility] Comment on above: Performed By: #### H EMDF, PT, BMP3M, PHOS3, MG3, CK3 #### [place] [address] [place], [place] #### VD25H #### [facility] [address] [place] [address] VL Venous Duplex US Lower Ex t Bilateralon 07-12-2018 VL Venous Duplex US Lower Ext Bilateral Patient Name: KATHYA HOOPER Ultrasound Exam Date/Time 07/12/2018 17:20:46 EDT Exam VL Venous Duplex US Lower Ext Bilateral Ordering Physician MD AVELAR ADAM Accession Number [id number] CPT4 Codes 07096 () Reason For Exam leg swelling Report [facility] --- Lower Extremity Venous Duplex Report Patient Name: Kathya Hooper : 1955 Study Date: 07/12/2018 W (63yrs) Age: 63 Account: [id number] Gender: M Loc: [id number] BP: Ordering: Joshua Avelar Technologist: Ordering Physician: Joshua Avelar Calculation Clerk: Elizabeth Sanford RVT Interpreting Physician: Krysta Arora --- Location: [facility] --- INDICATIONS: Edema. bilateral calves. --- CONCLUSIONS [...] performed. The images were obtained using a Insync E9 vascular ultrasound machine. --- VENOUS FLOW [...] ---------+-------+--- --+ Electronically signed by: Krysta Arora [id number] Final Dictated: 07/13/2018 8:45 am Dictating Physician: KRYSTA ARORA Signed Date and Time: 07/13/2018 8:45 am Signed by: KRYSTA ARORA Normal [facility] Basic Metabolic Panelon 06-29 Calcium mass conc 7.8 mg/dL Low 8.4-10.4 [facility] Comment on above: Performed By: #### H EMDF, PT, BMP3M, PHOS3, MG3, CK3 #### [facility] [address] #### VD25H #### [facility] [address] [place] [address] Anion gap molar conc 4 Normal [facility] Comment on above: Performed By: #### H EMDF, PT, BMP3M, PHOS3, MG3, CK3 #### [facility] [address] #### VD25H #### [facility] [address] [place] [address] CO2 molar conc 26 mmol/L Normal 22-30 [facility] Comment on above: Performed By: #### H EMDF, PT, BMP3M, PHOS3, MG3, CK3 #### [facility] [address] [facility] #### VD25H #### [facility] [address] [place] [address] Glucose mass conc 118 mg/dL High 70-100 [facility] Comment on above: Performed By: #### H EMDF, PT, BMP3M, PHOS3, MG3, CK3 #### [place] [address] [address] [facility] #### VD25H #### [facility] [address] [place] [address] Urea nitrogen mass conc 19 mg/dL Normal 7-20 [facility] Comment on above: Performed By: #### H EMDF, PT, BMP3M, PHOS3, MG3, CK3 #### [place] [address] [address] [facility] #### VD25H #### [facility] [address] [place] [address] Creatinine mass conc 0.74 mg/dL Normal 0.52-1.25 [facility] Comment on above: Performed By: #### H EMDF, PT, BMP3M, PHOS3, MG3, CK3 #### [place] [address] [address] [facility] #### VD25H #### [facility] [address] [place] [address] GFR/1.73 sq M predicted among blacks MDRD vol rate/area (S/P/Bld) mL/min/{1.73_m2} Normal >60 [facility] Comment on above: Performed By: #### H EMDF, PT, BMP3M, PHOS3, MG3, CK3 #### [address] [facility] [place] #### VD25H #### [facility] [address] [place] [address] GFR/1.73 sq M predicted among non-blacks MDRD vol rate/area (S/P/Bld) mL/min/{1.73_m2} Normal >60 [facility] Comment on above: Result Comment: Sour ce- MDRD equation with creatinine calibration to IDMS(NKDEP) eGFR not recommended for drug dose adjustment Performed By: #### H EMDF, PT, BMP3M, PHOS3, MG3, CK3 #### [facility] [address] [place] [address] #### VD25H #### [facility] [address] [place] [address] Chloride molar conc 112 mmol/L High 98-107 [facility] Comment on above: Performed By: #### H EMDF, PT, BMP3M, PHOS3, MG3, CK3 #### [facility] [address] [place], [place] #### VD25H #### [facility] [address] [place] [address] Potassium molar conc 3.8 mmol/L Normal 3.5-5.1 [facility] Comment on above: Performed By: #### H EMDF, PT, BMP3M, PHOS3, MG3, CK3 #### [facility] [address] [place] [address] #### VD25H #### [facility] [address] [place] [address] Sodium molar conc 141 mmol/L Normal 135-145 [facility] Comment on above: Performed By: #### H EMDF, PT, BMP3M, PHOS3, MG3, CK3 #### [facility] [address] [place] [address] #### VD25H #### [facility] [address] [place] [address] CR Chest 1 View Frontalon CR Chest 1 View Frontal Patient Name: KATHYA FELDER Diagnostic Radiology Exam Date/Time 07/11/2018 06:36:48 EDT Exam CR Chest 1 View Frontal Ordering Physician MD AVELAR ADAM Accession Number [id number] CPT4 Codes 54194 () Reason For Exam dyspnea Report EXAM [...] Abs Baso Cnt 0.0 10*3/uL Normal 0.0-0.2 [facility] Comment on above: Performed By: #### H EMDF, PT, BMP3M, PHOS3, MG3, CK3 #### [facility] [address] [place], [place] #### VD25H #### [facility] [address] [place] [address] Abs Neutrophile Cnt 8.8 10*3/uL High 1.8-7.0 [facility] Comment on above: Performed By: #### H EMDF, PT, BMP3M, PHOS3, MG3, CK3 #### [facility] [address] [place], [place] #### VD25H #### [facility] [address] [place] [address] Basophils/100 WBC (Bld) 0.4 % Normal 0.0-2.0 [facility] Comment on above: Performed By: #### H EMDF, PT, BMP3M, PHOS3, MG3, CK3 #### [facility] [address] [place], [place] #### VD25H #### [facility] [address] [place] [address] Eosinophils #/vol (Bld) 0.0 10*3/uL Normal 0.0-0.5 [facility] Comment on above: Performed By: #### H EMDF, PT, BMP3M, PHOS3, MG3, CK3 #### [address] #### VD25H #### [facility] [address] [place] [address] Eosinophils/100 WBC (Bld) 0.4 % Low 1.0-6.0 [facility] Comment on above: Performed By: #### H EMDF, PT, BMP3M, PHOS3, MG3, CK3 #### [address] #### VD25H #### [facility] [address] [place] [address] Erythrocyte distribution width Ratio (RBC) 13.7 % Normal 11.5-14.5 [facility] Comment on above: Performed By: #### H EMDF, PT, BMP3M, PHOS3, MG3, CK3 #### [address] #### VD25H #### [facility] [address] [place] [address] Granulocytes/100 WBC (Bld) 80.6 % High 40.0-80.0 [facility] Comment on above: Performed By: #### H EMDF, PT, BMP3M, PHOS3, MG3, CK3 #### [address] #### VD25H #### [facility] [address] [place] [address] Hematocrit Volume Fraction (Bld) 32.8 % Low 40.0-52.0 [facility] Comment on above: Performed By: #### H EMDF, PT, BMP3M, PHOS3, MG3, CK3 #### [facility] [address] [place] #### VD25H #### [facility] [address] [place] [address] Hemoglobin mass conc (Bld) 11.4 g/dL Low 13.0-18.0 [facility] Comment on above: Performed By: #### H EMDF, PT, BMP3M, PHOS3, MG3, CK3 #### [address] #### VD25H #### [facility] [address] [place] [address] Lymphocytes #/vol (Bld) 1.3 10*3/uL Normal 1.0-4.3 [facility] Comment on above: Performed By: #### H EMDF, PT, BMP3M, PHOS3, MG3, CK3 #### [address] #### VD25H #### [facility] [address] [place] [place] [address] Lymphocytes/100 WBC (Bld) 11.5 % Low 20.0-40.0 [facility] Comment on above: Performed By: #### H EMDF, PT, BMP3M, PHOS3, MG3, CK3 #### [address] #### VD25H #### [facility] [address] [place] [address] MCH Entitic mass (RBC) 30.2 pg Normal 26.0-34.0 [facility] Comment on above: Performed By: #### H EMDF, PT, BMP3M, PHOS3, MG3, CK3 #### [address] #### VD25H #### [facility] [address] [place] [address] MCHC mass conc (RBC) 34.7 % Normal 32.0-36.0 [facility] Comment on above: Performed By: #### H EMDF, PT, BMP3M, PHOS3, MG3, CK3 #### [address] #### VD25H #### [facility] [address] [place] [address] MCV Entitic volume (RBC) 86.9 fL Normal 80.0-98.0 [facility] Comment on above: Performed By: #### H EMDF, PT, BMP3M, PHOS3, MG3, CK3 #### [address] #### VD25H #### [facility] [address] [place] [address] Monocytes #/vol (Bld) 0.8 10*3/uL Normal 0.0-0.8 [facility] Comment on above: Performed By: #### H EMDF, PT, BMP3M, PHOS3, MG3, CK3 #### [address] #### VD25H #### [facility] [address] [place] [address] Monocytes/100 WBC (Bld) 7.1 % Normal 2.0-10.0 [facility] Comment on above: Performed By: #### H EMDF, PT, BMP3M, PHOS3, MG3, CK3 #### [address] #### VD25H #### [facility] [address] [place] [address] Platelet mean volume Entitic volume (Bld) 8.8 fL Normal 7.4-10.4 [facility] Comment on above: Performed By: #### H EMDF, PT, BMP3M, PHOS3, MG3, CK3 #### [address] #### VD25H #### [facility] [address] [place] [address] Platelets #/vol (Bld) 158 10*3/uL Normal 140-440 [facility] Comment on above: Performed By: #### H EMDF, PT, BMP3M, PHOS3, MG3, CK3 #### [place] [address] [place], [place] #### VD25H #### [facility] [address] [place] [address] RBC #/vol (Bld) 3.78 10*6/uL Low 4.40-5.90 [facility] Comment on above: Performed By: #### H EMDF, PT, BMP3M, PHOS3, MG3, CK3 #### [address] #### VD25H #### [facility] [address] [place] [address] WBC #/vol (Bld) 10.9 10*3/uL High 3.6-10.7 [facility] Comment on above: Performed By: #### H EMDF, PT, BMP3M, PHOS3, MG3, CK3 #### [address] #### VD25H #### [place] [address] [place] [address] Magnesiumon 07-11-2018 Magnesium mass conc 2.3 mg/dL Normal 1.6-2.3 [facility] Comment on above: Performed By: #### H EMDF, PT, BMP3M, PHOS3, MG3, CK3 #### [address] #### VD25H #### [facility] [address] [place] [address] Phosphoruson 07-11-2018 Phosphate mass conc 2.8 mg/dL Normal 2.5-4.5 [facility] Comment on above: Performed By: #### H EMDF, PT, BMP3M, PHOS3, MG3, CK3 #### [place] [address] [place], [place] #### VD25H #### [facility] [address] [place] [address] Basic Metabolic Panelon 06-29 Calcium mass conc 8.9 mg/dL Normal 8.4-10.4 [facility] Comment on above: Performed By: #### H EMDF, PT, BMP3M, PHOS3, MG3, CK3 #### [place] [address] [place], [place] #### VD25H #### [facility] [address] [place] [address] Glucose mass conc 133 mg/dL High 70-100 [facility] Comment on above: Performed By: #### H EMDF, PT, BMP3M, PHOS3, MG3, CK3 #### [place] [address] [place], [place] #### VD25H #### [facility] [address] [place] [address] Anion gap molar conc 4 Normal [facility] Comment on above: Performed By: #### H EMDF, PT, BMP3M, PHOS3, MG3, CK3 #### [place] [address] [place], [place] #### VD25H #### [facility] [address] [place] [address] CO2 molar conc 27 mmol/L Normal 22-30 [facility] Comment on above: Performed By: #### H EMDF, PT, BMP3M, PHOS3, MG3, CK3 #### [place] [address] [address] [facility], [place] #### VD25H #### [facility] [address] [place] [address] Creatinine mass conc 0.69 mg/dL Normal 0.52-1.25 [facility] Comment on above: Performed By: #### H EMDF, PT, BMP3M, PHOS3, MG3, CK3 #### [address] [address] [place] [address] #### VD25H #### [facility] [address] [place] [address] GFR/1.73 sq M predicted among blacks MDRD vol rate/area (S/P/Bld) mL/min/{1.73_m2} Normal >60 [facility] Comment on above: Performed By: #### H EMDF, PT, BMP3M, PHOS3, MG3, CK3 #### [address] [place] [address] #### VD25H #### [place] [address] [place] [address] GFR/1.73 sq M predicted among non-blacks MDRD vol rate/area (S/P/Bld) mL/min/{1.73_m2} Normal >60 [facility] Comment on above: Result Comment: Sour ce- MDRD equation with creatinine calibration to IDMS(NKDEP) eGFR not recommended for drug dose adjustment Performed By: #### H EMDF, PT, BMP3M, PHOS3, MG3, CK3 #### [address] #### VD25H #### [facility] [address] [place] [address] Urea nitrogen mass conc 16 mg/dL Normal 7-20 [facility] Comment on above: Performed By: #### H EMDF, PT, BMP3M, PHOS3, MG3, CK3 #### [address] #### VD25H #### [facility] [address] [place] [facility] [place] [address] Potassium molar conc 4.1 mmol/L Normal 3.5-5.1 [facility] Comment on above: Performed By: #### H EMDF, PT, BMP3M, PHOS3, MG3, CK3 #### [address] #### VD25H #### [place] [address] [place] [address] Sodium molar conc 142 mmol/L Normal 135-145 [facility] Comment on above: Performed By: #### H EMDF, PT, BMP3M, PHOS3, MG3, CK3 #### [address] #### VD25H #### [facility] [address] [place] [address] Chloride molar conc 110 mmol/L High 98-107 [facility] Comment on above: Performed By: #### H EMDF, PT, BMP3M, PHOS3, MG3, CK3 #### [address] #### [id number] #### [facility] [address] [place] [address] CKon 07-10-2018 CK enzyme act/vol 1291 U/L High 30-170 [facility] Comment on above: Performed By: #### H EMDF, PT, BMP3M, PHOS3, MG3, CK3 #### [address] #### [id number] #### [facility] [address] [place] [address] CK enzyme act/vol 1382 U/L High 30-170 [facility] Comment on above: Performed By: #### H EMDF, PT, BMP3M, PHOS3, MG3, CK3 #### [address] #### [id number] #### [facility] [address] [place] [address] CR Chest 1 View Frontalon CR Chest 1 View Frontal Patient Name: KATHYA FELDER Diagnostic Radiology Exam Date/Time 07/10/2018 06:38:06 EDT Exam CR Chest 1 View Frontal Ordering Physician MD NATE, NICOLE HOLLEY Accession Number [id number] CPT4 Codes 45866 () Reason For Exam dyspnea Report EXAMINATION: [...] Abs Baso Cnt 0.0 10*3/uL Normal 0.0-0.2 [facility] Comment on above: Performed By: #### H EMDF, PT, BMP3M, PHOS3, MG3, CK3 #### [facility] [address] [place] [address] #### VD25H #### [facility] [address] [place] [address] Abs Neutrophile Cnt 12.2 10*3/uL High 1.8-7.0 [facility] Comment on above: Performed By: #### H EMDF, PT, BMP3M, PHOS3, MG3, CK3 #### [facility] [address] [place] [address] #### VD25H #### [facility] [address] [place] [address] Basophils/100 WBC (Bld) 0.3 % Normal 0.0-2.0 [facility] Comment on above: Performed By: #### H EMDF, PT, BMP3M, PHOS3, MG3, CK3 #### [facility] [address] [place], [place] #### VD25H #### [facility] [address] [place] [address] Eosinophils #/vol (Bld) 0.0 10*3/uL Normal 0.0-0.5 [facility] Comment on above: Performed By: #### H EMDF, PT, BMP3M, PHOS3, MG3, CK3 #### [address] #### VD25H #### [facility] [address] [place] [address] Eosinophils/100 WBC (Bld) 0.0 % Low 1.0-6.0 [facility] Comment on above: Performed By: #### H EMDF, PT, BMP3M, PHOS3, MG3, CK3 #### [address] #### VD25H #### [facility] [address] [place] [address] Erythrocyte distribution width Ratio (RBC) 13.9 % Normal 11.5-14.5 [facility] Comment on above: Performed By: #### H EMDF, PT, BMP3M, PHOS3, MG3, CK3 #### [address] [place], [place] #### VD25H #### [facility] [address] [place] [address] Granulocytes/100 WBC (Bld) 89.5 % High 40.0-80.0 [facility] Comment on above: Performed By: #### H EMDF, PT, BMP3M, PHOS3, MG3, CK3 #### [address] #### VD25H #### [facility] [address] [place] [address] Hematocrit Volume Fraction (Bld) 36.0 % Low 40.0-52.0 [facility] Comment on above: Performed By: #### H EMDF, PT, BMP3M, PHOS3, MG3, CK3 #### [facility] [address] [place], [place] #### VD25H #### [facility] [address] [place] [address] Hemoglobin mass conc (Bld) 12.3 g/dL Low 13.0-18.0 [facility] Comment on above: Performed By: #### H EMDF, PT, BMP3M, PHOS3, MG3, CK3 #### [address] #### VD25H #### [facility] [address] [place] [address] Lymphocytes #/vol (Bld) 0.6 10*3/uL Low 1.0-4.3 [facility] Comment on above: Performed By: #### H EMDF, PT, BMP3M, PHOS3, MG3, CK3 #### [address] #### VD25H #### [facility] [address] [place] [address] Lymphocytes/100 WBC (Bld) 4.3 % Low 20.0-40.0 [facility] Comment on above: Performed By: #### H EMDF, PT, BMP3M, PHOS3, MG3, CK3 #### [address] #### VD25H #### [facility] [address] [place] [address] MCH Entitic mass (RBC) 29.8 pg Normal 26.0-34.0 [facility] Comment on above: Performed By: #### H EMDF, PT, BMP3M, PHOS3, MG3, CK3 #### [address] #### VD25H #### [place] [address] [place] [address] MCHC mass conc (RBC) 34.2 % Normal 32.0-36.0 [facility] Comment on above: Performed By: #### H EMDF, PT, BMP3M, PHOS3, MG3, CK3 #### [address] [address] #### VD25H #### [facility] [address] [place] [address] MCV Entitic volume (RBC) 87.1 fL Normal 80.0-98.0 [facility] Comment on above: Performed By: #### H EMDF, PT, BMP3M, PHOS3, MG3, CK3 #### [address] #### VD25H #### [place] [address] [place] [address] Monocytes #/vol (Bld) 0.8 10*3/uL Normal 0.0-0.8 [facility] Comment on above: Performed By: #### H EMDF, PT, BMP3M, PHOS3, MG3, CK3 #### [address] #### VD25H #### [place] [address] [place] [address] Monocytes/100 WBC (Bld) 5.9 % Normal 2.0-10.0 [facility] Comment on above: Performed By: #### H EMDF, PT, BMP3M, PHOS3, MG3, CK3 #### [address] #### VD25H #### [place] [address] [place] [address] Platelet mean volume Entitic volume (Bld) 8.4 fL Normal 7.4-10.4 [facility] Comment on above: Performed By: #### H EMDF, PT, BMP3M, PHOS3, MG3, CK3 #### [address] #### VD25H #### [facility] [address] [place] [address] Platelets #/vol (Bld) 155 10*3/uL Normal 140-440 [facility] Comment on above: Performed By: #### H EMDF, PT, BMP3M, PHOS3, MG3, CK3 #### [facility] [address] [place], [place] #### VD25H #### [facility] [address] [place] [address] RBC #/vol (Bld) 4.13 10*6/uL Low 4.40-5.90 [facility] Comment on above: Performed By: #### H EMDF, PT, BMP3M, PHOS3, MG3, CK3 #### [address] #### VD25H #### [facility] [address] [place] [address] WBC #/vol (Bld) 13.6 10*3/uL High 3.6-10.7 [facility] Comment on above: Performed By: #### H EMDF, PT, BMP3M, PHOS3, MG3, CK3 #### [place] [address] [place], [place] #### VD25H #### [facility] [address] [place] [address] Magnesiumon 07-10-2018 Magnesium mass conc 2.3 mg/dL Normal 1.6-2.3 [facility] Comment on above: Performed By: #### H EMDF, PT, BMP3M, PHOS3, MG3, CK3 #### [address] [place], [place] #### VD25H #### [facility] [address] [place] [address] Phosphoruson 07-10-2018 Phosphate mass conc 2.7 mg/dL Normal 2.5-4.5 [facility] Comment on above: Performed By: #### H EMDF, PT, BMP3M, PHOS3, MG3, CK3 #### [address] #### VD25H #### [facility] [address] [place] [address] Add on test from HISon 07-09 Add on test from HIS Accepted Normal [facility] Comment on above: Result Comment: Spec imen available & acceptable for analysis. Performed By: #### A DDON #### [address] Arterial Blood Gaseson 07-09 CO2 molar conc 24.5 mmol/L Normal 23.0-27.0 [facility] Comment on above: Performed By: #### H EMDF, PT, BMP3M, PHOS3, MG3, CK3 #### [address] #### VD25H #### [place] [address] [place] [address] HCO3 molar conc (Bld) 23.2 mmol/L Normal 21.0-25.0 [facility] Comment on above: Performed By: #### H EMDF, PT, BMP3M, PHOS3, MG3, CK3 #### [address] #### VD25H #### [facility] [address] [place] [address] Hemoglobin mass conc (Bld) 15.7 g/dL Normal ScreenOnly [facility] Comment on above: Performed By: #### H EMDF, PT, BMP3M, PHOS3, MG3, CK3 #### [address] #### VD25H #### [facility] [address] [place] [address] Oxygen ppres (Bld) 397.4 mm[Hg] High 80.0-100.0 [facility] Comment on above: Performed By: #### H EMDF, PT, BMP3M, PHOS3, MG3, CK3 #### [address] [place], [place] #### VD25H #### [facility] [address] [place] [address] Oxygen saturation in Blood 99.2 % Normal 95.0-100.0 [facility] Comment on above: Performed By: #### H EMDF, PT, BMP3M, PHOS3, MG3, CK3 #### [place] [address] [place], [place] #### VD25H #### [facility] [address] [place] [address] pCO2 42.3 mm[Hg] Normal 35.0-45.0 [facility] Comment on above: Performed By: #### H EMDF, PT, BMP3M, PHOS3, MG3, CK3 #### [address] #### VD25H #### [place] [address] [place] [address] pH (Bld) 7.357 Normal 7.350-7.450 [facility] Comment on above: Performed By: #### H EMDF, PT, BMP3M, PHOS3, MG3, CK3 #### [address] #### VD25H #### [place] [address] [place] [address] Std Base Excess -2.3 mmol/L Normal -3.0-3.0 [facility] Comment on above: Performed By: #### H EMDF, PT, BMP3M, PHOS3, MG3, CK3 #### [address] #### VD25H #### [facility] [address] [place] [address] FIO2 100% Normal [facility] Comment on above: Performed By: #### H EMDF, PT, BMP3M, PHOS3, MG3, CK3 #### [address] #### VD25H #### [facility] [address] [place] [address] Basic Metabolic Panelon 06-29 Calcium mass conc 8.6 mg/dL Normal 8.4-10.4 [facility] Comment on above: Performed By: #### H EMDF, PT, BMP3M, PHOS3, MG3, CK3 #### [place] [address] [address] [facility], [place] #### VD25H #### [facility] [address] [place] [address] Glucose mass conc 150 mg/dL High 70-100 [facility] Comment on above: Performed By: #### H EMDF, PT, BMP3M, PHOS3, MG3, CK3 #### [address] [facility], [place] #### VD25H #### [facility] [address] [place] [address] Anion gap molar conc 7 Normal [facility] Comment on above: Performed By: #### H EMDF, PT, BMP3M, PHOS3, MG3, CK3 #### [place] [address] [address] [facility], [place] #### VD25H #### [facility] [address] [place] [address] CO2 molar conc 26 mmol/L Normal 22-30 [facility] Comment on above: Performed By: #### H EMDF, PT, BMP3M, PHOS3, MG3, CK3 #### [place] [address] [address] [facility], [place] #### VD25H #### [facility] [address] [place] [address] Creatinine mass conc 0.80 mg/dL Normal 0.52-1.25 [facility] Comment on above: Performed By: #### H EMDF, PT, BMP3M, PHOS3, MG3, CK3 #### [place] [address] [address] [facility], [place] #### VD25H #### [facility] [address] [place] [address] GFR/1.73 sq M predicted among blacks MDRD vol rate/area (S/P/Bld) mL/min/{1.73_m2} Normal >60 [facility] Comment on above: Performed By: #### H EMDF, PT, BMP3M, PHOS3, MG3, CK3 #### [address] [place], [place] #### VD25H #### [place] [address] [place] [address] GFR/1.73 sq M predicted among non-blacks MDRD vol rate/area (S/P/Bld) mL/min/{1.73_m2} Normal >60 [facility] Comment on above: Result Comment: Sour ce- MDRD equation with creatinine calibration to IDMS(NKDEP) eGFR not recommended for drug dose adjustment Performed By: #### H EMDF, PT, BMP3M, PHOS3, MG3, CK3 #### [address] #### VD25H #### [place] [address] [place] [address] Urea nitrogen mass conc 16 mg/dL Normal 7-20 [facility] Comment on above: Performed By: #### H EMDF, PT, BMP3M, PHOS3, MG3, CK3 #### [address] #### VD25H #### [facility] [address] [place] [address] Chloride molar conc 110 mmol/L High 98-107 [facility] Comment on above: Performed By: #### H EMDF, PT, BMP3M, PHOS3, MG3, CK3 #### [address] #### VD25H #### [place] [address] [place] [address] Potassium molar conc 4.7 mmol/L Normal 3.5-5.1 [facility] Comment on above: Performed By: #### H EMDF, PT, BMP3M, PHOS3, MG3, CK3 #### [facility] [address] [place] [address] #### VD25H #### [facility] [address] [facility] [place] [address] Sodium molar conc 143 mmol/L Normal 135-145 [facility] Comment on above: Performed By: #### H EMDF, PT, BMP3M, PHOS3, MG3, CK3 #### [place] [address] [place], [place] #### VD25H #### [facility] [address] [place] [address] CKon 07-09-2018 CK enzyme act/vol 1451 U/L High 30-170 [facility] Comment on above: Performed By: #### H EMDF, PT, BMP3M, PHOS3, MG3, CK3 #### [place] [address] [place] [address] #### VD25H #### [facility] [address] [place] [place] [address] CK enzyme act/vol 3832 U/L High 30-170 [facility] Comment on above: Performed By: #### H EMDF, PT, BMP3M, PHOS3, MG3, CK3 #### [address] [address] #### VD25H #### [facility] [address] [place] [address] CR Chest 1 View Frontalon CR Chest 1 View Frontal Patient Name: KATHYA FELDER Diagnostic Radiology Exam Date/Time 07/09/2018 06:21:56 EDT Exam CR Chest 1 View Frontal Ordering Physician MD NATE, NICOLE HOLLEY Accession Number [id number] CPT4 Codes 24416 () Reason For Exam dyspnea Report CHEST [...] Normal [facility] CR Chest Portableon 07-10-19 CR Chest Portable Patient Name: KATHYA HOOPER Diagnostic Radiology Exam Date/Time 07/09/2018 11:34:09 EDT Exam CR Chest Portable Ordering Physician INDRA JACOBSON Accession Number [id number] CPT4 Codes 79607 () Reason For Exam Central line placement [...] JOHN Transcribed Date and Time: 07/09/2018 1:01 [facility] CR Chest Portable Patient Name: KATHYA HOOPER Diagnostic Radiology Exam Date/Time 07/09/2018 03:05:20 EDT Exam CR Chest Portable Ordering Physician MD NATE, NICOLE HOLLEY Accession Number [id number] CPT4 Codes 08270 () Reason For Exam intubation Report CHEST PORTABLE: Indication: Inpatient; intubation Views: Portable frontal Comparison: 07/08/2018 at 22:16 Time: 07/09/2018 at 2:46 FINDINGS: Interval intubation with endotracheal tube approximately 4.2 cm above the level of the alma. An enteric tube has been placed with distal tip below the hemidiaphragm but excluded from [id number]. Cardiac monitoring wires and leads are present. [...] R Transcribed Date and Time: 07/09/2018 3:10 [facility] CR Chest Portable Patient Name: KATHYA HOOPER Diagnostic Radiology Exam Date/Time 07/08/2018 22:31:57 EDT Exam CR Chest Portable Ordering Physician MD NATE, NICOLE HOLLEY Accession Number [id number] CPT4 Codes 34848 () Reason For Exam cough Report CHEST [...] Ordering Physician MD RICKI, JORDAN Accession Number [id number] CPT4 Codes Q9967 (CT ISOVUE 370MG/[id number]), 10234 (), 46633 () Reason For Exam CERVICAL SPINE FRACTURE Report CLINICAL INFORMATION: C-spine fracture after trauma. Vascular injury suspected. CTA HEAD: After 75 ml Isovue IV contrast, 0.3 mm axial cuts were obtained through the brain. Coronal and sagittal reconstructions are reviewed. In addition, 3D images of the [place] were constructed by ok and reviewed simultaneously on the separate [employer] Workstation. The examination is compared to a [...] me and reviewed simultaneously on the separate [employer] Workstation. The examination is compared to a [...] at 0735 hrs. Report Dictated on Workstation: Poly [id number] Final Dictated: 07/09/2018 9:50 am Dictating Physician: MD JERNIGAN JEFFREY Signed Date and Time: 07/09/2018 10:26 am Signed by: MD JERNIGAN JEFFREY Transcribed Date and Time: 07/09/2018 9:50 Normal [facility] Hemogram w/ Autodiffon 07-09 Abs Baso Cnt 0.1 10*3/uL Normal 0.0-0.2 [facility] Comment on above: Performed By: #### H EMDF, PT, BMP3M, PHOS3, MG3, CK3 #### [address] [address] #### VD25H #### [facility] [address] [place] [address] Abs Neutrophile Cnt 13.3 10*3/uL High 1.8-7.0 [facility] Comment on above: Performed By: #### H EMDF, PT, BMP3M, PHOS3, MG3, CK3 #### [address] [address] #### VD25H #### [facility] [address] [place] [address] Basophils/100 WBC (Bld) 0.3 % Normal 0.0-2.0 [facility] Comment on above: Performed By: #### H EMDF, PT, BMP3M, PHOS3, MG3, CK3 #### [place] [address] [place], [place] #### VD25H #### [facility] [address] [place] [address] Eosinophils #/vol (Bld) 0.0 10*3/uL Normal 0.0-0.5 [facility] Comment on above: Performed By: #### H EMDF, PT, BMP3M, PHOS3, MG3, CK3 #### [address] #### VD25H #### [facility] [address] [place] [address] Eosinophils/100 WBC (Bld) 0.0 % Low 1.0-6.0 [facility] Comment on above: Performed By: #### H EMDF, PT, BMP3M, PHOS3, MG3, CK3 #### [address] #### VD25H #### [facility] [address] [place] [address] Erythrocyte distribution width Ratio (RBC) 13.7 % Normal 11.5-14.5 [facility] Comment on above: Performed By: #### H EMDF, PT, BMP3M, PHOS3, MG3, CK3 #### [address] #### VD25H #### [facility] [address] [place] [address] Granulocytes/100 WBC (Bld) 86.5 % High 40.0-80.0 [facility] Comment on above: Performed By: #### H EMDF, PT, BMP3M, PHOS3, MG3, CK3 #### [address] #### VD25H #### [facility] [address] [place] [address] Hematocrit Volume Fraction (Bld) 45.1 % Normal 40.0-52.0 [facility] Comment on above: Performed By: #### H EMDF, PT, BMP3M, PHOS3, MG3, CK3 #### [facility] [address] [place], [place] #### VD25H #### [facility] [address] [place] [address] Hemoglobin mass conc (Bld) 15.6 g/dL Normal 13.0-18.0 [facility] Comment on above: Performed By: #### H EMDF, PT, BMP3M, PHOS3, MG3, CK3 #### [address] #### VD25H #### [facility] [address] [place] [address] Lymphocytes #/vol (Bld) 0.8 10*3/uL Low 1.0-4.3 [facility] Comment on above: Performed By: #### H EMDF, PT, BMP3M, PHOS3, MG3, CK3 #### [address] #### VD25H #### [facility] [address] [place] [address] Lymphocytes/100 WBC (Bld) 5.5 % Low 20.0-40.0 [facility] Comment on above: Performed By: #### H EMDF, PT, BMP3M, PHOS3, MG3, CK3 #### [address] #### VD25H #### [facility] [address] [place] [address] MCH Entitic mass (RBC) 29.9 pg Normal 26.0-34.0 [facility] Comment on above: Performed By: #### H EMDF, PT, BMP3M, PHOS3, MG3, CK3 #### [address] #### VD25H #### [facility] [address] [place] [address] MCHC mass conc (RBC) 34.5 % Normal 32.0-36.0 [facility] Comment on above: Performed By: #### H EMDF, PT, BMP3M, PHOS3, MG3, CK3 #### [address] [place], [place] #### VD25H #### [facility] [address] [place] [address] MCV Entitic volume (RBC) 86.7 fL Normal 80.0-98.0 [facility] Comment on above: Performed By: #### H EMDF, PT, BMP3M, PHOS3, MG3, CK3 #### [address] #### VD25H #### [facility] [address] [place] [address] Monocytes #/vol (Bld) 1.2 10*3/uL High 0.0-0.8 [facility] Comment on above: Performed By: #### H EMDF, PT, BMP3M, PHOS3, MG3, CK3 #### [address] #### VD25H #### [facility] [address] [place] [address] Monocytes/100 WBC (Bld) 7.7 % Normal 2.0-10.0 [facility] Comment on above: Performed By: #### H EMDF, PT, BMP3M, PHOS3, MG3, CK3 #### [address] #### VD25H #### [facility] [address] [place] [address] Platelet mean volume Entitic volume (Bld) 8.1 fL Normal 7.4-10.4 [facility] Comment on above: Performed By: #### H EMDF, PT, BMP3M, PHOS3, MG3, CK3 #### [address] #### VD25H #### [facility] [address] [place] [address] Platelets #/vol (Bld) 197 10*3/uL Normal 140-440 [facility] Comment on above: Performed By: #### H EMDF, PT, BMP3M, PHOS3, MG3, CK3 #### [facility] [address] [place], [place] #### VD25H #### [facility] [address] [place] [address] RBC #/vol (Bld) 5.20 10*6/uL Normal 4.40-5.90 [facility] Comment on above: Performed By: #### H EMDF, PT, BMP3M, PHOS3, MG3, CK3 #### [address] #### VD25H #### [place] [address] [facility] [place] [address] WBC #/vol (Bld) 15.4 10*3/uL High 3.6-10.7 [facility] Comment on above: Performed By: #### H EMDF, PT, BMP3M, PHOS3, MG3, CK3 #### [address] #### VD25H #### [place] [address] [facility] [place] [address] MRI Spine Cervical w/o Contr birgit 07-09-2018 MRI Spine Cervical w/o Contrast Patient Name: KATHYA HOOPER MRI Exam Date/Time 07/09/2018 00:44:49 EDT Exam MRI Spine Cervical w/o Contrast Ordering Physician MD CHEYENNE, BRITTANY BERRY Accession Number [id number] CPT4 Codes 08465 () Reason For Exam CERVICAL SPINE FRACTURE [...] PHOS3, MG3, CK3 #### [facility] [address] [place] [address] #### VD25H #### [facility] [address] [place] [address] Phosphoruson 07-09-2018 Phosphate mass conc 4.0 mg/dL Normal 2.5-4.5 [facility] Comment on above: Performed By: #### H EMDF, PT, BMP3M, PHOS3, MG3, CK3 #### [facility] [address] [place], [place] #### VD25H #### [facility] [address] [place] [place] [address] Prothrombin Timeon 9 INR Coag RelTime (PPP) 1.0 Normal 0.9-1.1 [facility] Comment on above: Result Comment: Yefri [...] PT, BMP3M, PHOS3, MG3, CK3 #### [address] #### VD25H #### [facility] [address] [place] [address] Prothrombin time (PT) Coag time (PPP) 10.3 s Normal 9.0-12.0 [facility] Comment on above: Result Comment: . Performed By: #### H EMDF, PT, BMP3M, PHOS3, MG3, CK3 #### [address] #### VD25H #### [facility] [address] [place] [address] TS GELon 07-09-2018 TS GEL ABO Group: O Rh, Gel: POS Antibody Screen Gel: NEG Normal [facility] Comment on above: Performed By: #### T SGL #### [address] [address] Vit D 25-OH, Totalon 019 Vit D 25-OH, Total 23 ng/mL Low 30-100 [facility] Comment on above: Result Comment: Ther apy is based on measurement of Total 25-OHD with the following classification levels: Less than 20 ng/mL: Indicative of Vit D deficiency 20-30 ng/mL: Suggests Vit D insufficiency Optimal: Greater than or equal to 30 ng/mL Test performed by [employer] Competitive Immunoassay, measuring Total Vitamin D, not individual fractions. Performed By: #### H EMDF, PT, BMP3M, PHOS3, MG3, CK3 #### [facility] [address] [place] [address] #### VD25H #### [facility] [address] [place] [address] Hematologyon 01-03-2003 Lymphocytes (Bld) [#/Vol] RECTUM, BIOPSY - BENIGN COLONIC MUCOSA WITH INTRAMUCOSAL LYMPHOID AGGREGATES. [facility] Otheron 01-03-2003 CONVERTED ELECTRONIC SIGNATURE BARBARA CASTILLO M.D., PATHOLOGIST (Electronic signature on file) Final Signed Out: 01/03/2003 15:09 [facility] CONVERTED ORDERING PROVIDER Ordering Provider: BENI VERA [facility] Culture, urine Bacteria identified Cx Nom (U) Culture exhibits no growth. [facility] Work Phone: Vital Signs Date Time Vital Sign Value Performing Clinician Facility 10-02-2023 13:56-0400 Diastolic blood pressure 62 mm[Hg] Fei Farooq MD Work Phone: [facility] 10-02-2023 13:56-0400 Heart rate 104 /min Fei Farooq MD Work Phone: [facility] 10-02-2023 13:56-0400 SaO2% (BldA) [Mass fraction] 94 % Fei Farooq MD Work Phone: [facility] 10-02-2023 13:56-0400 Systolic blood pressure 124 mm[Hg] Fei Farooq MD Work Phone: [facility] 10-02-2023 11:13-0400 Respiratory rate 16 /min Fei Farooq MD Work Phone: [facility] 10-02-2023 09:47-0400 Body mass index (BMI) [Ratio] 26.19 kg/m2 Fei Farooq MD Work Phone: [facility] 10-02-2023 09:47-0400 Body temperature 98.01 [degF] Fei Farooq MD Work Phone: [facility] 10-02-2023 09:47-0400 Body weight 92.53 kg Fei Farooq MD Work Phone: [facility] 05-20-2022 18:30-0500 Body mass index (BMI) [Ratio] 26.32 kg/m2 Abelardo Gombash DO Work Phone: [facility] 05-20-2022 18:30-0500 Body temperature 97.3 [degF] Abelardo Gombash DO Work Phone: [facility] 05-20-2022 18:30-0500 Body weight 92.99 kg Abelardo Gombash DO Work Phone: [facility] 05-20-2022 18:30-0500 Diastolic blood pressure 108 mm[Hg] Abelardo Gombash DO Work Phone: [facility] 05-20-2022 18:30-0500 Heart rate 100 /min Abelardo Gombash DO Work Phone: [facility] 05-20-2022 18:30-0500 Respiratory rate 14 /min Abelardo Gombash DO Work Phone: [facility] 05-20-2022 18:30-0500 SaO2% (BldA) [Mass fraction] 98 % Abelardo Gombash DO Work Phone: [facility] 05-20-2022 18:30-0500 Systolic blood pressure 125 mm[Hg] Abelardo Gombash DO Work Phone: [facility] 05-15-2021 09:40-0500 Body height 188 cm Timothy Micheal DO Work Phone: [facility] 05-15-2021 09:40-0500 Body mass index (BMI) [Ratio] 23.75 kg/m2 Timothy Micheal DO Work Phone: [email or web address] 05-15-2021 09:40-0500 Body weight 83.92 kg Timothy Micheal DO Work Phone: [facility] 05-15-2021 09:38-0500 Body temperature 97.59 [degF] Timothy Micheal DO Work Phone: [email or web address] 05-15-2021 09:38-0500 Diastolic blood pressure 76 mm[Hg] Timothy Micheal DO Work Phone: [facility] 05-15-2021 09:38-0500 Heart rate 102 /min Timothy [facility]al DO [facility] 05-15-2021 09:38-0500 Respiratory rate 16 /min Timotyh Micheal DO Work Phone: [email or web address] 05-15-2021 09:38-0500 SaO2% (BldA) [Mass fraction] 99 % Timothy Micheal DO Work Phone: [email or web address] 05-15-2021 09:38-0500 Systolic blood pressure 115 mm[Hg] Timothy Micheal DO Work Phone: [facility] 03-24-2021 10:20-0500 Respiratory rate 18 /min Brady Nesheim DO Work Phone: [facility] 03-24-2021 10:20-0500 SaO2% (BldA) [Mass fraction] 94 % Brady Nesheim DO Work Phone: [email or web address] 03-24-2021 08:44-0500 Body temperature 97.7 [degF] Brady Nesheim DO Work Phone: [facility] 03-24-2021 08:44-0500 Diastolic blood pressure 55 mm[Hg] Brady Nesheim DO Work Phone: [facility] 03-24-2021 08:44-0500 Heart rate 85 /min Brady Nesheim DO Work Phone: [email or web address] 03-24-2021 08:44-0500 Systolic blood pressure 85 mm[Hg] Brady Nesheim DO Work Phone: [facility] 03-20-2021 13:41-0500 Body height 188 cm Brady Nesheim DO Work Phone: [facility] 03-20-2021 11:16-0500 Body mass index (BMI) [Ratio] 23.86 kg/m2 Brady Nesheim DO Work Phone: [facility] 03-20-2021 11:16-0500 Body weight 84.32 kg Brady Nesheim DO Work Phone: [facility] Comment on above: per Nataly RN (bed scal e measurement) on 03/20/2021 03-18-2021 15:02-0500 Body temperature 99.5 [degF] Boo Castro MD Work Phone: [facility] 03-18-2021 15:02-0500 Diastolic blood pressure 82 mm[Hg] Boo Castro MD Work Phone: [facility] 03-18-2021 15:02-0500 Heart rate 111 /min Boo Castro MD Work Phone: [facility] 03-18-2021 15:02-0500 Respiratory rate 18 /min Boo Castro MD Work Phone: [facility] 03-18-2021 15:02-0500 SaO2% (BldA) [Mass fraction] 93 % Boo Castro MD Work Phone: [facility] 03-18-2021 15:02-0500 Systolic blood pressure 111 mm[Hg] Boo Castro MD Work Phone: [facility] 10-30-2020 17:10-0400 Diastolic blood pressure 82 mm[Hg] Bethany Clemons MD Work Phone: [facility] Work Phone: 10-30-2020 17:10-0400 Heart rate 110 /min Bethany Clemons MD Work Phone: [facility] Work Phone: 10-30-2020 17:10-0400 Respiratory rate 16 /min Bethany Clemons MD Work Phone: [facility] Work Phone: 10-30-2020 17:10-0400 SaO2% (BldA) [Mass fraction] 99 % Bethany Clemons MD Work Phone: [facility] Work Phone: 10-30-2020 17:10-0400 Systolic blood pressure 125 mm[Hg] Bethany Clemons MD Work Phone: [email or web address] Work Phone: 10-30-2020 13:02-0400 Body mass index (BMI) [Ratio] 24.65 kg/m2 Bethany Clemons MD Work Phone: [facility] Work Phone: 10-30-2020 13:02-0400 Body temperature 96.91 [degF] Bethany Clemons MD Work Phone: [facility] Work Phone: 10-30-2020 13:02-0400 Body weight 87.09 kg Bethany Clemons MD Work Phone: [facility] Work Phone: 09-22-2020 05:01-0400 Diastolic blood pressure 76 mm[Hg] Elizabeth Moura MD Work Phone: [facility] Work Phone: 09-22-2020 05:01-0400 Systolic blood pressure 114 mm[Hg] Elizabeth Moura MD Work Phone: [facility] Work Phone: 09-22-2020 00:26-0400 Body temperature 97.81 [degF] Elizabeth Moura MD Work Phone: [facility] Work Phone: 09-22-2020 00:26-0400 Heart rate 86 /min Elizabeth Moura MD Work Phone: [facility] Work Phone: 09-22-2020 00:26-0400 Respiratory rate 16 [...] 95 /min Elizabeth Moura MD [facility] Phone: [facility] Work Phone: 05-16-2019 23:00-0500 Respiratory rate 18 /min Elizabeth Moura MD Work Phone: [facility] Work Phone: 05-16-2019 23:00-0500 SaO2% (BldA) [Mass fraction] 100 % Elizabeth Moura MD Work Phone: [facility] Work Phone: 05-16-2019 23:00-0500 Systolic blood pressure 115 mm[Hg] Elizabeth Muora MD Work Phone: [facility] Work Phone: 05-16-2019 19:57-0500 Body temperature 98.49 [degF] Elizabeth Moura MD Work Phone: [facility] Work Phone: NEGATED: Highlighted [id number] 14:34-0500 BMI (Body Mass Index) 22.16 kg/m2 Ana Sheltonch INORGANIC CHEMISTRY PROFESSOR [facility] Work Phone: NEGATED: Highlighted [id number] 14:34-0500 Body weight 78.02 kg Ana Diesch INORGANIC CHEMISTRY PROFESSOR [facility] Work Phone: NEGATED: Highlighted [id number] 14:34-0500 Body weight 78 kg Ana Diesch INORGANIC CHEMISTRY PROFESSOR [facility] Work Phone: NEGATED: Highlighted [id number] 14:34-0500 BP Diastolic 66 mm[Hg] Ana Diesch INORGANIC CHEMISTRY PROFESSOR [facility] Work Phone: NEGATED: Highlighted [id number] 14:34-0500 BP Systolic 102 mm[Hg] Ana Diesch INORGANIC CHEMISTRY PROFESSOR [facility] Work Phone: NEGATED: Highlighted [id number] 14:34-0500 [facility]IC CHEMISTRY PROFESSOR [facility] Work Phone: NEGATED: Highlighted [id number] 14:34-0500 Height 188 cm Ana Stevenson LPN [facility] Work Phone: NEGATED: Highlighted [id number] 14:34-0500 Pulse (Heart Rate) 104 /min Ana Stevenson LPN [facility] Work Phone: Encounters Encounter Date Encounter Type Care Provider Facility Start: 02-10-2025 ambulatory Renard Amezquitaros OLS Faci lity:[facility] Start: 02-03-2025 ambulatory Renard Amezquitaros OLS Faci lity:[facility] Start: 01-27-2025 ambulatory Renard Amezquitaros OLS Faci lity:[facility] Start: 01-20-2025 ambulatory Renard Hensleysaros OLS Faci lity:[facility] Start: 01-13-2025 ambulatory Renard Amezquitaros OLS Faci lity:[facility] Start: 01-10-2025 ambulatory Renard Amezquitaros OLS Faci lity:[facility] Start: 01-06-2025 ambulatory Renard Hensleysaros OLS Faci lity:[facility] Start: 12-31-2024 ambulatory Renard Hensleysaros OLS Faci lity:[facility] Start: 12-23-2024 End: 12-23-2024 ambulatory Renard Burgos OLS Facility:[facility] Start: 12-16-2024 ambulatory Renard Amezquitaros OLS Faci lity:[facility] Start: 12-09-2024 ambulatory Renard Amezquitaros OLS Faci lity:[facility] Start: 12-02-2024 ambulatory Renard Hensleysaros OLS Faci lity:[facility] Start: 11-25-2024 ambulatory Renard Hensleysaros OLS Faci lity:[facility] Start: 11-25-2024 Registered Referred Renard Burgos - Julissa Kilpatrick [facility] Start: 11-18-2024 ambulatory Renard Burgos OLS Faci lity:[facility] Start: 11-18-2024 Registered Referred Renard Burgos - Julissa Kilpatrick [facility] Start: 11-11-2024 ambulatory Renard Burgos OLS Faci lity:[facility] Start: 11-11-2024 Registered Referred Renard Amezquitaros - [facility] Start: 11-04-2024 ambulatory Renard GARLAND Faci lity:[facility] Start: 11-04-2024 Registered Referred Renard Burgos - [facility] Start: 10-28-2024 ambulatory Renard Burgos OLS Faci lity:[facility] Start: 10-28-2024 Registered Referred Renard Burgos - [facility] Start: 10-21-2024 End: 10-21-2024 ambulatory Renard Burgos OLS -[facility] Start: 10-21-2024 End: 10-21-2024 Departed Referred Renard Burgos -[facility] Start: 10-21-2024 Registered Referred Renard Burgos - [facility] Start: 10-21-2024 End: 10-21-2024 ambulatory Renard GARLAND Facility:[facility] Start: 10-14-2024 ambulatory Renard GARLAND Faci lity:[facility] Start: 10-14-2024 Registered Referred Renard Amezquitaros - [facility] Start: 10-07-2024 ambulatory Renard Burgos OLS Faci lity:[facility] Start: 10-07-2024 Registered Referred Renard Burgos - [facility] Start: 09-30-2024 ambulatory Renard Burgos OLS Faci lity:[facility] Start: 09-30-2024 Registered Referred Renard Burgos - [facility] Start: 09-24-2024 End: 09-24-2024 ambulatory Renard Burgos OLS -[facility] Start: 09-24-2024 End: 09-24-2024 Departed Referred Renard Burgos -[facility] Start: 09-24-2024 Registered Referred Renard Burgos - [facility] Start: 09-24-2024 End: 09-24-2024 ambulatory Renard GARLAND Facility:[facility] Start: 09-16-2024 End: 09-16-2024 ambulatory Renard Burgos OLS -[facility] Start: 09-16-2024 End: 09-16-2024 Departed Referred Renard Hensleysaros -[facility] Start: 09-16-2024 Registered Referred Renard Amezquitaros - [facility] Start: 09-16-2024 End: 09-16-2024 ambulatory Renard GARLAND Facility:[facility] Start: 09-11-2024 End: 09-11-2024 ambulatory Renard GARLAND [facility] Work Phone: Start: 09-11-2024 End: 09-11-2024 Departed Referred Renard Hensleysaros -[facility] Start: 09-11-2024 Registered Referred Renard Hensleysaros - [facility] Start: 09-11-2024 End: 09-11-2024 ambulatory Renard GARLAND Facility:[facility] Start: 09-09-2024 End: 09-09-2024 ambulatory Renard GARLAND [facility] Work Phone: Start: 09-09-2024 End: 09-09-2024 Departed Referred Renard Hensleysaros -[facility] Start: 09-09-2024 Registered Referred Renard Amezquitaros - [facility] Start: 09-09-2024 End: 09-09-2024 ambulatory Renard GARLAND Facility:[facility] Start: 09-02-2024 End: 09-02-2024 ambulatory Renard GARLAND [facility] Work Phone: Start: 09-02-2024 End: 09-02-2024 Departed Referred Renard Amezquitaros -[facility] Start: 09-02-2024 Registered Referred Renard Hensleysaros - [facility] Start: 09-02-2024 End: 09-02-2024 ambulatory Renard GARLAND Facility:[facility] Start: 08-26-2024 End: 08-26-2024 ambulatory Renard GARLAND [facility] Work Phone: Start: 08-26-2024 End: 08-26-2024 Departed Referred Renard Amezquitaros -[facility] Start: 08-26-2024 Registered Referred Renard Burgos - [facility] Start: 08-26-2024 End: 08-26-2024 ambulatory Renard GARLAND Facility:[facility] Start: 08-23-2024 End: 08-23-2024 Departed Referred Renard Burgos -[facility] Start: 08-23-2024 Registered Referred Renard [facility] Start: 08-23-2024 End: 08-23-2024 ambulatory Renard GARLAND Facility:[facility] Start: 08-19-2024 End: 08-19-2024 ambulatory Renard GARLAND [facility] Work Phone: Start: 08-19-2024 End: 08-19-2024 Departed Referred Renard Burgos -[facility] Start: 08-19-2024 Registered Referred Renard [facility] Start: 08-19-2024 End: 08-19-2024 ambulatory Renard GARLAND Facility:[facility] Start: 08-12-2024 End: 08-12-2024 ambulatory Renard GARLAND [facility] Work Phone: Start: 08-12-2024 End: 08-12-2024 Departed Referred Renard Burgos -[facility] Start: 08-12-2024 Registered Referred Renard [facility] Start: 08-12-2024 End: 08-12-2024 ambulatory Renard GARLAND Facility:[facility] Start: 08-05-2024 End: 08-05-2024 Departed Referred Renard Burgos -[facility] Start: 08-05-2024 Registered Referred Renard [facility] Start: 08-05-2024 End: 08-05-2024 ambulatory Renard GARLAND Facility:[facility] Start: 07-29-2024 End: 07-29-2024 ambulatory Renard GARLAND [facility] Work Phone: Start: 07-29-2024 End: 07-29-2024 Departed Referred Peter Katsaros -[facility] [facility] Start: 07-29-2024 Registered Referred Renard Amezquitaros - [facility] Start: 07-29-2024 End: 07-29-2024 ambulatory Renard GARLAND Facility:[facility] Start: 07-22-2024 End: 07-22-2024 ambulatory Renard GARLAND [facility] Work Phone: Start: 07-22-2024 End: 07-22-2024 Departed Referred Renard Amezquitaros -[facility] Start: 07-22-2024 Registered Referred Renard Amezquitaros - [place] [facility] Start: 07-22-2024 End: 07-22-2024 ambulatory Renard GARLAND Facility:[facility] Start: 07-16-2024 End: 07-16-2024 ambulatory Renard GARLAND [facility] Work Phone: Start: 07-16-2024 End: 07-16-2024 Departed Referred Renard Burgos -[facility] [facility] Start: 07-16-2024 Registered Referred Renard Burgos - [place] [facility] Start: 07-15-2024 End: 07-16-2024 ambulatory Renard GARLAND [facility] Work Phone: Start: 07-15-2024 End: 07-15-2024 Departed Referred Renard Burgos -[facility] [facility] Start: 07-15-2024 Registered Referred Renard Burgos - [facility] Start: 07-15-2024 End: 07-15-2024 ambulatory Renard GARLAND Facility:[facility] Start: 07-08-2024 End: 07-08-2024 ambulatory Renard GARLAND [facility] Work Phone: Start: 07-08-2024 End: 07-08-2024 Departed Referred Renard Amezquitaros -[facility] [facility] Start: 07-08-2024 Registered Referred Renard Burgos - [facility] Start: 07-08-2024 End: 07-08-2024 ambulatory Renard GARLAND Facility:[facility] Start: 07-01-2024 End: 07-01-2024 ambulatory Renard GARLAND [facility] Work Phone: Start: 07-01-2024 End: 07-01-2024 Departed Referred [facility] Start: 07-01-2024 Registered Referred Renard [facility] Start: 07-01-2024 End: 07-01-2024 ambulatory Renard GARLAND Facility:[facility] Start: 06-27-2024 End: 06-27-2024 ambulatory Renard Shellierustam GARLAND [facility] Work Phone: Start: 06-27-2024 End: 06-27-2024 Departed Referred Renard [facility] Start: 06-27-2024 Registered Referred Renard [facility] Start: 06-27-2024 End: 06-27-2024 ambulatory Renard GARLAND Facility:[facility] Start: 06-24-2024 End: 06-24-2024 Subsequent hospital visit by physician Rashaad Pink NP Work Phone: [facility] CT Imaging Comment on above: Chronic cough Start: 06-24-2024 End: 06-24-2024 ambulatory RASHAAD SMITH [facility] Start: 06-24-2024 End: 06-24-2024 Departed Referred Renard [facility] Start: 06-24-2024 Registered Referred Renard [facility] Start: 06-24-2024 End: 06-24-2024 ambulatory Renard GARLAND Facility:[facility] Start: 06-17-2024 End: 06-17-2024 ambulatory Renard GARLAND [facility] Work Phone: Start: 06-17-2024 End: 06-17-2024 Departed Referred Renard Burgos -[facility] Start: 06-17-2024 Registered Referred Renard [facility] Start: 06-17-2024 End: 06-17-2024 ambulatory Renard GARLAND Facility:[facility] Start: 06-12-2024 End: 09-11-2024 Transcribe Orders Rashaad Smith APRN - SIM Work Phone: [facility] Scheduling Comment on above: Chronic cough (Prima ry Dx) Start: 06-10-2024 End: 06-10-2024 ambulatory Renard GARLAND [facility] Work Phone: Start: 06-10-2024 End: 06-10-2024 Departed Referred Renard Burgos -[facility] Start: 06-10-2024 Registered Referred Renard Burgos - [facility] Start: 06-10-2024 End: 06-10-2024 ambulatory Renard GARLAND Facility:[facility] Start: 06-07-2024 End: 06-07-2024 ambulatory Renard GARLAND [facility] Work Phone: Start: 06-07-2024 End: 06-07-2024 Departed Referred Renard Burgos -[facility] Start: 06-07-2024 Registered Referred Renard Burgos - [facility] Start: 06-07-2024 End: 06-07-2024 ambulatory Renard GARLAND Facility:[facility] Start: 06-03-2024 End: 06-03-2024 ambulatory Renard GARLAND [facility] Work Phone: Start: 06-03-2024 End: 06-03-2024 Departed Referred Renard Amezquitaros -[place] [facility] Start: 06-03-2024 End: 06-03-2024 ambulatory Renard GARLAND Facility:[facility] Start: 05-27-2024 End: 05-27-2024 Departed Referred Renard Burgos -[facility] Start: 05-27-2024 End: 05-27-2024 ambulatory Renard GARLAND Facility:[facility] Start: 05-20-2024 End: 05-20-2024 Departed Referred Renard Hensleysaros -[facility] [facility] Start: 05-20-2024 End: 05-20-2024 ambulatory Renard GARLAND Facility:[facility] Start: 05-13-2024 End: 05-13-2024 Departed Referred Renard Burgos -[facility] Start: 05-13-2024 End: 05-13-2024 ambulatory Renard GARLAND Facility:[facility] Start: 05-06-2024 End: 05-06-2024 Departed Referred Renard Burgos -[facility] Start: 05-06-2024 End: 05-06-2024 ambulatory Renard GARLAND Facility:[facility] Start: 05-03-2024 End: 05-03-2024 Telephone encounter Renard Burgos Work Phone: [facility] Clinical Communication Comment on above: Other Start: 04-29-2024 End: 04-29-2024 Departed Referred Renard Burgos -[facility] Start: 04-29-2024 End: 04-29-2024 ambulatory Renard GARLAND Facility:[facility] Start: 04-22-2024 End: 04-22-2024 Departed Referred Renard Burgos -[facility] Start: 04-22-2024 End: 04-22-2024 ambulatory Renard GARLAND Facility:[facility] Start: 04-15-2024 End: 04-15-2024 Departed Referred Renard Burgos -[place] [facility] Start: 04-15-2024 End: 04-15-2024 ambulatory Renard GARLAND Facility:[facility] Start: 04-08-2024 ambulatory Renard GARLAND Faci lity:[facility] Start: 04-08-2024 Registered Referred Renard Burgos - [facility] Start: 04-01-2024 ambulatory Renard GARLAND Faci lity:[facility] Start: 04-01-2024 Registered Referred Renard Burgos - [place] [facility] Start: 03-25-2024 End: 03-25-2024 Departed Referred Renard Burgos -[place] [facility] Start: 03-25-2024 End: 03-25-2024 ambulatory Renard GARLAND Facility:[facility] Start: 03-18-2024 End: 03-18-2024 Departed Referred Renard Shellierustam [facility] [employer] [facility] Start: 03-18-2024 End: 03-18-2024 ambulatory Renard Burgos OLS Facility:[facility] Start: 03-11-2024 End: 03-11-2024 Departed Referred Renard Shellierustam [facility] [employer] Start: 03-11-2024 End: 03-11-2024 ambulatory Renard Burgos OLS Facility:[facility] Start: 03-04-2024 End: 03-04-2024 ambulatory Renard Hensleysahola OLS Facility:[facility] Start: 02-26-2024 End: 02-26-2024 ambulatory Renard Burgos OLS Facility:[facility] Start: 02-23-2024 End: 02-23-2024 ambulatory Renard GARLAND Facility:[facility] Start: 02-19-2024 End: 02-19-2024 ambulatory Renard GARLAND Facility:[facility] Start: 02-12-2024 End: 02-12-2024 ambulatory Renard GARLAND Facility:[facility] Start: 11-22-2023 End: 11-22-2023 ambulatory RENARD BURGOS [facility] Start: 11-22-2023 End: 11-22-2023 Subsequent hospital visit by physician Renard Burgos Work Phone: [facility] X-ray Imaging Comment on above: Dysphagia, oropharyn geal phase; Feeding difficulties Start: 10-16-2023 End: 01-15-2024 Transcribe Orders Renard Burgos Work Phone: [facility] Central Scheduling Comment on above: Dysphagia, oropharyn geal phase (Primary Dx); Feeding difficulties Start: 10-02-2023 End: 10-02-2023 Emergency department patient visit Fei Farooq MD Work Phone: [facility] ED Comment on above: Dyspnea, unspecified type (Primary Dx) Start: 08-07-2023 Registered Referred [facility] [employer] [facility] Start: 07-31-2023 End: 07-31-2023 ambulatory [facility] Work Phone: Start: 07-31-2023 End: 07-31-2023 [facility] Start: 07-31-[facility]23 [facility] Start: 07-24-2023 End: 07-24-2023 ambulatory [facility] Work Phone: Start: 07-24-2023 End: 07-24-2023 [facility] Start: 07-17-2023 End: 07-17-2023 ambulatory [facility] Work Phone: Start: 07-17-2023 End: 07-17-2023 [facility] Start: 07-17-2023 [facility] Start: 07-10-2023 End: 07-10-2023 ambulatory [facility] Work Phone: Start: 07-10-2023 End: 07-10-2023 [facility] Start: 07-10-2023 [facility] Start: 07-03-2023 End: 07-03-2023 ambulatory [facility] Work Phone: Start: 07-03-2023 End: 07-03-2023 [facility] Start: 07-03-2023 [facility] Start: 06-26-2023 [facility] Start: 06-19-2023 End: 06-19-2023 ambulatory [facility] Work Phone: Start: 06-19-2023 End: 06-19-2023 [facility] Start: 06-19-2023 [facility] Start: 06-12-2023 End: 06-12-2023 ambulatory [facility] Work Phone: Start: 06-12-2023 End: 06-12-2023 [facility] Start: 06-12-2023 [facility] Start: 06-05-2023 End: 06-05-2023 ambulatory [facility] Work Phone: Start: 06-05-2023 End: 06-05-2023 [facility] Start: 06-05-2023 [facility] Start: 05-29-2023 End: 05-29-2023 [facility] Start: 05-29-2023 [facility] Start: 05-22-2023 End: 05-22-2023 ambulatory [facility] Work Phone: Start: 05-22-2023 End: 05-22-2023 [facility] Start: 05-22-2023 [facility] Start: 05-15-2023 End: 05-15-2023 [facility] Start: 05-15-2023 [facility] Start: 05-08-2023 End: 05-08-2023 ambulatory [facility] Work Phone: Start: 05-08-2023 End: 05-08-2023 [facility] Start: 04-17-2023 End: 04-17-2023 ambulatory [facility] Work Phone: Start: 04-17-2023 End: 04-17-2023 [facility] Start: 04-17-2023 Registered Referred [facility] Start: 04-14-2023 End: 04-14-2023 ambulatory [facility] Work Phone: Start: 04-14-2023 End: 04-14-2023 [facility] Start: 04-14-2023 Registered Referred [facility] [facility] Start: 04-10-2023 End: 04-10-2023 [facility] Start: 04-10-2023 [facility] Start: 04-03-2023 End: 04-03-2023 ambulatory [facility] Work Phone: Start: 04-03-2023 End: 04-03-2023 [facility] Start: 04-03-2023 [facility] Start: 03-27-2023 End: 03-27-2023 ambulatory [facility] Work Phone: Start: 03-27-2023 End: 03-27-2023 [facility] Start: 03-27-2023 Registered Referred [facility] Start: 03-20-2023 End: 03-20-2023 ambulatory [facility] Work Phone: Start: 03-20-2023 End: 03-20-2023 [facility] Start: 03-20-2023 Registered Ref[facility] [facility] [place] [employer] Start: 03-16-2023 End: 03-16-2023 ambulatory [facility] Work Phone: Start: 03-16-2023 End: 03-16-2023 [facility] [employer] Start: 03-16-2023 Registered [facility] [employer] Start: 03-13-2023 End: 03-13-2023 ambulatory [facility] Work Phone: Start: 03-13-2023 End: 03-13-2023 [facility] [employer] Start: 03-06-2023 End: 03-06-2023 ambulatory [facility] Work Phone: Start: 03-06-2023 End: 03-06-2023 [facility] [employer] Start: 03-06-2023 Registered [facility] [employer] Start: 02-27-2023 End: 02-27-2023 ambulatory [facility] Work Phone: Start: 02-27-2023 End: 02-27-2023 [facility] [employer] Start: 02-20-2023 End: 02-20-2023 ambulatory [facility] Work Phone: Start: 02-20-2023 End: 02-20-2023 [facility] [employer] Start: 02-20-2023 Registered [facility] [employer] Start: 02-13-2023 End: 02-13-2023 ambulatory [facility] Work Phone: Start: 02-13-2023 End: 02-13-2023 [facility] [employer] Start: 02-13-2023 Registered [facility] [employer] Start: 02-06-2023 End: 02-06-2023 ambulatory [facility] Work Phone: Start: 02-06-2023 End: 02-06-2023 [facility] [employer] Start: 02-06-2023 Registered [facility] [employer] Start: 01-30-2023 End: 01-30-2023 ambulatory [facility] Work Phone: Start: 01-30-2023 End: 01-30-2023 [facility] [employer] Start: 01-30-2023 Registered [facility] [employer] Start: 01-23-2023 End: 01-23-2023 [facility] [employer] [facility] Start: 01-23-2023 [facility] Start: 01-16-2023 End: 01-16-2023 ambulatory [facility] Work Phone: Start: 01-16-2023 End: 01-16-2023 [facility] Start: 01-16-2023 [facility] Start: 01-09-2023 End: 01-09-2023 [facility] Start: 01-09-2023 [facility] [facility] Start: 01-03-2023 End: 01-03-2023 ambulatory [facility] Work Phone: Start: 01-03-2023 End: 01-03-2023 [facility] Start: 01-03-2023 [facility] Start: 12-26-2022 End: 12-26-2022 ambulatory [facility] Work Phone: Start: 12-26-2022 End: 12-26-2022 [facility] [employer] [facility] Start: 12-26-2022 [facility] [employer] [facility] Start: 12-19-2022 End: 12-19-2022 ambulatory [facility] Work Phone: Start: 12-19-2022 End: 12-19-2022 [facility] [employer] Start: 12-19-2022 [facility] [employer] Start: 12-12-2022 End: 12-12-2022 [facility] [employer] Start: 12-12-2022 [facility] [employer] Start: 12-05-2022 End: 12-05-2022 ambulatory [facility] Work Phone: Start: 12-05-2022 End: 12-05-2022 [facility] [employer] [facility] Start: 12-05-2022 [facility]istered [facility] [employer] Start: 11-28-2022 End: 11-28-2022 ambulatory [facility] Work Phone: Start: 11-28-2022 End: 11-28-2022 [facility] Start: 11-28-2022 Registered [facility] [employer] Start: 11-21-2022 End: 11-21-2022 ambulatory [facility] Work Phone: Start: 11-21-2022 End: 11-21-2022 [facility] [employer] [facility] Start: 11-21-2022 Registered [facility] [employer] Start: 11-14-2022 End: 11-14-2022 ambulatory [facility] Work Phone: Start: 11-14-2022 End: 11-14-2022 Dep[facility]ed [facility] [employer] Start: 11-14-2022 Registered [facility] [employer] Start: 11-07-2022 [facility] [employer] Start: 10-31-2022 End: 10-31-2022 ambulatory [facility] Work Phone: Start: 10-31-2022 End: 10-31-2022 [facility] [employer] Start: 10-31-2022 [facility]istered [facility] [employer] Start: 10-24-2022 End: 10-24-2022 ambulatory [facility] Work Phone: Start: 10-24-2022 End: 10-24-2022 [facility] Start: 10-24-2022 [facility]istered [facility] [employer] Start: 10-17-2022 End: 10-17-2022 [facility] [employer] [facility] Start: 10-17-2022 [facility] [employer] [facility] Start: 10-10-2022 End: 10-10-2022 ambulatory [facility] Work Phone: Start: 10-10-2022 End: 10-10-2022 [facility] [employer] [facility] Start: 10-10-2022 Registered [facility] [employer] Start: 10-03-2022 End: 10-03-2022 ambulatory [facility] Work Phone: Start: 10-03-2022 End: 10-03-2022 [facility] [employer] Start: 09-19-2022 End: 09-19-2022 [facility] [employer] [facility] Start: 09-19-2022 Registered [facility] [employer] Start: 09-12-2022 End: 09-12-2022 ambulatory [facility] Work Phone: Start: 09-12-2022 End: 09-12-2022 [facility] [facility] Start: 09-05-2022 End: 09-05-2022 [facility] Start: 09-05-2022 Registered [facility] [employer] Start: 08-29-2022 End: 08-29-2022 [facility] [employer] Start: 08-29-2022 Registered [facility] [employer] Start: 08-22-2022 End: 08-22-2022 ambulatory [facility] Work Phone: Start: 08-22-2022 End: 08-22-2022 [facility] [employer] Start: 08-22-2022 [facility]istered [facility] [employer] Start: 08-15-2022 End: 08-15-2022 ambulatory [facility] Work Phone: Start: 08-15-2022 End: 08-15-2022 [facility] Start: 08-15-2022 Registered [facility] [employer] Start: 08-08-2022 End: 08-08-2022 [facility] [employer] Start: 08-08-2022 Registered [facility] [employer] Start: 08-01-2022 End: 08-01-2022 ambulatory [facility] Work Phone: Start: 08-01-2022 End: 08-01-2022 Dep[facility]ed [facility] [employer] Start: 08-01-2022 [facility]istered [facility] [employer] Start: 07-25-2022 End: 07-25-2022 ambulatory [facility] Work Phone: Start: 07-25-2022 End: 07-25-2022 [facility] [employer] Start: 07-25-2022 Registered [facility] [employer] Start: 07-19-2022 End: 07-19-2022 [facility] [employer] [facility] Start: 07-19-2022 Registered [facility] [employer] Start: 07-18-2022 End: 07-18-2022 ambulatory [facility] Work Phone: Start: 07-18-2022 End: 07-18-2022 Departed [facility] [facility] [employer] Start: 07-18-2022 Registered [facility] [employer] Start: 07-11-2022 End: 07-11-2022 ambulatory [facility] Work Phone: Start: 07-11-2022 End: 07-11-2022 Dep[facility]ed [facility] [facility] [employer] Start: 07-11-2022 Registered [facility] [employer] Start: 07-04-2022 End: 07-04-2022 Departed [facility] [employer] Start: 07-04-2022 Registered [facility] [employer] Start: 06-27-2022 End: 06-27-2022 ambulatory [facility] Work Phone: Start: 06-27-2022 End: 06-27-2022 [facility] [employer] [facility] Start: 06-27-2022 Registered [facility] [employer] Start: 06-20-2022 End: 06-20-2022 ambulatory [facility] Work Phone: Start: 06-20-2022 End: 06-20-2022 Dep[facility]ed [facility] [employer] Start: 06-20-2022 Registered [facility] [employer] Start: 06-13-2022 End: 06-13-2022 ambulatory [facility] Work Phone: Start: 06-13-2022 End: 06-13-2022 Dep[facility]ed [facility] [facility] [employer] Start: 06-13-2022 Registered [facility] [employer] Start: 06-06-2022 End: 06-06-2022 [facility] Start: 06-06-2022 [facility] [employer] Start: 05-30-2022 End: 05-30-2022 ambulatory [facility] Work Phone: Start: 05-30-2022 End: 05-30-2022 [facility] [employer] [facility] Start: 05-23-2022 End: 05-23-2022 ambulatory [facility] Work Phone: Start: 05-23-2022 End: 05-23-2022 [facility] [employer] [facility] Start: 05-23-2022 Registered [facility] [employer] Start: 05-20-2022 End: 05-20-2022 Emergency department patient visit Abelardo Rios DO Work Phone: [facility] Comment on above: Dislodged gastrostom y tube (Primary Dx) Start: 05-16-2022 End: 05-16-2022 [facility] [employer] Start: 05-16-2022 [facility] [employer] Start: 05-09-2022 End: 05-09-2022 ambulatory [facility] Work Phone: Start: 05-09-2022 End: 05-09-2022 [facility] [employer] [facility] Start: 05-09-2022 [facility] [employer] Start: 05-03-2022 End: 05-03-2022 ambulatory [facility] Work Phone: Start: 05-03-2022 End: 05-03-2022 [facility] [employer] [facility] Start: 05-03-2022 [facility] [employer] Start: 04-26-2022 End: 04-26-2022 [facility] [employer] [facility] Start: 04-26-2022 Registered [facility] [employer] Start: 04-18-2022 End: 04-18-2022 ambulatory [facility] Work Phone: Start: 04-18-2022 End: 04-18-2022 [facility] Start: 04-18-2022 [facility] Start: 04-14-2022 End: 04-14-2022 ambulatory [facility] Work Phone: Start: 04-14-2022 End: 04-14-2022 [facility] [employer] [facility] Start: 04-14-2022 [facility] [employer] [facility] Start: 04-11-2022 End: 04-11-2022 ambulatory [facility] Work Phone: Start: 04-11-2022 End: 04-11-2022 [facility] [employer] [facility] Start: 04-11-2022 [facility] Start: 04-04-2022 End: 04-04-2022 ambulatory [facility] Work Phone: Start: 04-04-2022 End: 04-04-2022 [facility] Start: 04-04-2022 [facility] Start: 03-28-2022 End: 03-28-2022 ambulatory [facility] Work Phone: Start: 03-28-2022 End: 03-28-2022 [facility] Start: 03-28-2022 [facility] Start: 03-21-2022 End: 03-21-2022 ambulatory [facility] Work Phone: Start: 03-21-2022 End: 03-21-2022 Departed [facility] [employer] Start: 03-21-2022 Registered [facility] [employer] Start: 03-14-2022 End: 03-14-2022 [facility] [employer] Start: 03-14-2022 Registered [facility] [employer] Start: 2022 End: 2022 ambulatory [facility] Work Phone: Start: 2022 End: 2022 Dep[facility]ed [facility] [employer] Start: 2022 Registered [facility] [employer] Start: 02-28-2022 End: 02-28-2022 Departed [facility] [employer] Start: 02-28-2022 Registered [facility] [employer] Start: 02-21-2022 End: 02-21-2022 ambulatory [facility] Work Phone: Start: 02-21-2022 End: 02-21-2022 Dep[facility]ed [facility] [facility] [employer] Start: 02-21-2022 Registered [facility] [employer] Start: 02-14-2022 End: 02-14-2022 ambulatory [facility] Work Phone: Start: 02-14-2022 End: 02-14-2022 Dep[facility]ed [facility] [facility] [employer] Start: 02-14-2022 Registered [facility] [employer] Start: 02-07-2022 End: 02-07-2022 ambulatory [facility] Work Phone: Start: 02-07-2022 End: 02-07-2022 [facility] [employer] Start: 02-07-2022 Registered [facility] [employer] Start: 01-31-2022 End: 01-31-2022 ambulatory [facility] Work Phone: Start: 01-31-2022 End: 01-31-2022 [facility] Start: 01-31-2022 [facility] [employer] [facility] Start: 01-24-2022 End: 01-24-2022 ambulatory [facility] Work Phone: Start: 01-24-2022 End: 01-24-2022 [facility] [employer] [facility] Start: 01-24-2022 Registered [facility] [employer] Start: 01-17-2022 End: 01-17-2022 [facility] Start: 01-17-2022 [facility] Start: 01-10-2022 End: 01-10-2022 ambulatory [facility] Work Phone: Start: 01-10-2022 End: 01-10-2022 [facility] Start: 01-10-2022 [facility] Start: 01-04-2022 End: 01-04-2022 ambulatory [facility] Work Phone: Start: 01-04-2022 End: 01-04-2022 [facility] [employer] Start: 01-04-2022 [facility] Start: 12-27-2021 End: 12-27-2021 ambulatory [facility] Work Phone: Start: 12-27-2021 End: 12-27-2021 [facility] Start: 12-27-2021 [facility] Start: 12-20-2021 End: 12-20-2021 ambulatory [facility] Work Phone: Start: 12-20-2021 End: 12-20-2021 [facility] [employer] Start: 12-20-2021 [facility]istered [facility] [employer] Start: 12-13-2021 End: 12-13-2021 [facility]ed [facility] [employer] Start: 12-13-2021 [facility]istered [facility] [employer] Start: 12-06-2021 End: 12-06-2021 ambulatory [facility] Work Phone: Start: 12-06-2021 End: 12-06-2021 [facility] Start: 12-06-2021 Registered [facility] [employer] Start: 11-29-2021 End: 11-29-2021 ambulatory [facility] Work Phone: Start: 11-29-2021 End: 11-29-2021 [facility] [employer] Start: 11-29-2021 Registered [facility] [employer] Start: 11-22-2021 End: 11-22-2021 [facility]ed [facility] [employer] Start: 11-22-2021 [facility]istered [facility] [employer] Start: 11-15-2021 End: 11-15-2021 [facility]ed [facility] [employer] Start: 11-15-2021 [facility]istered [facility] [employer] Start: 11-08-2021 End: 11-08-2021 [facility]ed [facility] [employer] Start: 10-25-2021 Registered [facility] [employer] Start: 10-18-2021 [facility]istered [facility] [employer] Start: 10-11-2021 Registered [facility] [employer] Start: 10-04-2021 Registered [facility] [employer] Start: 09-28-2021 End: 09-28-2021 [facility]ed [facility] [employer] Start: 09-28-2021 Registered [facility] [employer] Start: 09-20-2021 End: 09-20-2021 Dep[facility]ed [facility] [employer] Start: 09-20-2021 [facility]istered [facility] [employer] Start: 09-13-2021 End: 09-13-2021 Dep[facility]ed [facility] [employer] Start: 09-13-2021 [facility]istered [facility] [employer] Start: 09-06-2021 End: 09-06-2021 [facility]ed [facility] [employer] Start: 09-06-2021 [facility]istered [facility] [employer] Start: 08-30-2021 End: 08-30-2021 [facility]ed [facility] [employer] Start: 08-30-2021 Registered [facility] [employer] Start: 08-23-2021 End: 08-23-2021 [facility]ed [facility] [employer] Start: 08-23-2021 [facility]istered [facility] [employer] Start: 08-18-2021 End: 08-18-2021 Dep[facility]ed [facility] [employer] Start: 08-18-2021 Registered [facility] [employer] Start: 08-16-2021 End: 08-16-2021 [facility]ed [facility] [employer] Start: 08-16-2021 [facility]istered [facility] [employer] Start: 08-09-2021 End: 08-09-2021 [facility]ed [facility] [employer] Start: 08-02-2021 End: 08-02-2021 [facility]ed [facility] [employer] Start: 08-02-2021 [facility]istered [facility] [employer] Start: 07-26-2021 End: 07-26-2021 [facility] Start: 07-26-2021 Registered [facility] [facility] Start: 07-19-2021 End: 07-19-2021 [facility] [employer] [facility] Start: 07-19-2021 [facility] Start: 07-12-2021 End: 07-12-2021 [facility] [employer] [facility] Start: 07-05-2021 End: 07-05-2021 [facility] [employer] [facility] Start: 07-05-2021 [facility] [employer] [facility] Start: 06-28-2021 End: 06-28-2021 [facility] [employer] [facility] Start: 06-28-2021 [facility] [facility] Start: 06-21-2021 End: 06-21-2021 [facility] Start: 06-21-2021 [facility] [employer] [facility] Start: 06-14-2021 Registered [facility] [employer] [facility] Start: 06-07-2021 End: 06-07-2021 [facility] [employer] [facility] Start: 06-07-2021 [facility]istered [facility] [employer] Start: 05-31-2021 End: 05-31-2021 [facility] [employer] [facility] Start: 05-31-2021 Registered [facility] [employer] [facility] Start: 05-24-2021 End: 05-24-2021 [facility] [employer] [facility] Start: 01-17-2022 Registered Referred [facility] Start: 05-15-2021 End: 05-15-2021 Emergency department patient visit Timothy Burton DO Work Phone: [facility] ED Comment on above: PEG tube malfunction (HCC) (Primary Dx) Start: 05-14-2021 Registered Referred [facility] Start: 05-10-2021 Registered Referred [facility] Start: 05-03-2021 Registered Referred [facility] Start[facility] 04-26-2021 [facility] Start: 04-19-2021 Registered Referred [facility] Start: 04-12-2021 [facility] Start[facility] 04-07-2021 Registered Referred [facility] Start: 03-19-2021 End: 03-24-2021 Evaluation and management of inpatient Brady Desai DO Work Phone: [facility] Comment on above: Respiratory syncytia l virus (RSV) (Primary Dx); Hypoxia Start: 03-18-2021 End: 03-18-2021 Emergency department patient visit Boo Castro MD Work Phone: [facility] Comment on above: Respiratory syncytia l virus (RSV) (Primary Dx); Hypoxia Start: 10-30-2020 End: 10-30-2020 Emergency department patient visit Bethany Clemons MD Work Phone: [facility] Comment on above: Feeding tube dysfunc tion, initial encounter (Primary Dx) Start: 09-22-2020 End: 09-22-2020 Emergency department patient visit Elizabeth Moura MD Work Phone: [facility] Comment on above: PEG tube malfunction (HCC) (Primary Dx) Start: 06-26-2020 End: 06-26-2020 Emergency department patient visit Abelardo Rios Work Phone: [facility] ED Comment on above: PEG tube malfunction (HCC) (Primary Dx) Start: 05-22-2019 End: 05-22-2019 Patient encounter procedure Feliciano Kendall MD Work Phone: [facility] Work Phone: Start: 05-22-2019 End: 05-22-2019 Pt evaluation Feliciano Kendall MD Work Phone: [facility] Work Phone: Start: 05-16-2019 End: 05-16-2019 Emergency department patient visit Elizabeth Moura MD Work Phone: [facility] Comment on above: Contusion of right h ip, initial encounter (Primary Dx) Start: 08-15-2018 Evaluation and management of inpatient UNKNOWN PROVIDER [facility] Start: 07-08-2018 Evaluation and management of inpatient JORDAN GEUBE [facility] Start: 01-02-2003 End: 01-02-2003 Patient encounter procedure Beni Vera Work Phone: [facility] Start: 01-02-2003 Results Only Beni Cappsr Work Phone: [facility] Procedures Date Procedure Procedure Detail Performing [...] 10-02-2023 Radiologic exam ches t single view Heeln Toledo PA-C Work Phone: Start: 10-02-2023 Ecg routine ecg w/le ast 12 lds trcg only w/o i&r Helen Toledo PA-C Work Phone: Start: 10-02-2023 Ct head/brain w/o contrast material Helen Toledo PA-C Work Phone: Start: 01-30-2023 Urine culture Start: 05-20-2022 Perq replacement gtu be not req revj gstrst trc Dejah Pattersons DO Work Phone: Start: 05-20-2022 Radiologic exam [...] 03-23-2021 Basic metabolic panel calcium total Niya Rebecca SUN Work Phone: Start: 03-22-2021 Gluc bld gluc [...] ev cleared fda spec home use Brady Chiquita Espinosaheim DO Work Phone: Start: 03-21-2021 Assay of [...] A/B, A ND RSV COMBO Brady G Franciscaheim DO Work Phone: Start: 03-19-2021 Assay of [...] exam ches t single view Brady G Franciscaheim DO Work Phone: Start: 03-19-2021 Ecg routine [...] 05-22-2019 Arthrocentesis aspir&/inj major jt/bursa w/o us Feliciano Kendall MD Work Phone: Start: 05-22-2019 End: 05-22-2019 Blood pressure within normal parameters - no follow-up required Feliciano Kendall MD Work Phone: Start: 05-22-2019 End: 05-22-2019 BMI documented within normal parameters - no follow-up plan is required Feliciano Kendall MD Work Phone: Start: 05-22-2019 End: 05-22-2019 Documentation of current medications Feliciano Kendall MD Work Phone: Start: 05-22-2019 End: 05-22-2019 Injection - triamcinolone acetonide 10 mg Feliciano Kendall MD Work Phone: Start: 05-22-2019 End: 05-22-2019 Pain assessment documented as positive - follow-up documented Feliciano Kendall MD Work Phone: Start: 05-22-2019 End: 05-22-2019 Pt tobacco screen rcvd tlk Feliciano Kendall MD Work Phone: Start: 05-22-2019 End: 05-22-2019 Radex hip unilateral with pelvis 2-3 views Feliciano Kendall MD Work Phone: Start: 05-16-2019 Ct lower extremity w /o contrast material Elizabeth Moura MD Work Phone: Start: 08-21-2018 Microscopic examinat ion of blood, culture Comment on above: Order Comment: Speci men Source Comment:Blood Performed By: #### H EMDF, PT, BMP3M, PHOS3, MG3, CK3 #### [facility] [address], [place] #### [id number] #### [facility] [address] [place] [address] Start: 07-27-2018 Microscopic examinat ion of blood, culture Comment on above: Order Comment: Speci men Source Comment:Blood Performed By: #### H EMDF, PT, BMP3M, PHOS3, MG3, CK3 #### [facility] [address], [place] #### [id number] #### [facility] [address] [place] [address] Start: 07-19-2018 Microscopic examinat ion of blood, culture Comment on above: Order Comment: Speci men Source Comment:Blood Performed By: #### H EMDF, PT, BMP3M, PHOS3, MG3, CK3 #### [facility] [address], [place] #### [id number] #### [facility] [address] [place] [address] Start: 01-02-2003 CONVERTED SURGICAL PATHOLOGY Benimargarita Vera [...] for Adults (1 - 1-dose 75+ series) [facility] Start: 01-10-2027 DTaP/Tdap/Td vaccine (2 - Td or Tdap) DTaP/Tdap/Td vaccine (2 - Td or Tdap) [facility] Start: 01-10-2027 DTaP/Tdap/Td vaccine (2 - Td) DTaP/Tdap/Td vaccine (2 - Td) [facility] Work Phone: Start: 01-10-2027 DTaP/Tdap/Td Vaccine s (2 - Td or Tdap) DTaP/Tdap/Td Vaccines (2 - Td or Tdap) [facility] Start: 12-30-2024 Influenza vaccination Influenz a Vaccine (Season Ended) [facility] Start: 03-22-2024 Diabetes mellitus screening Diabetes Screening [facility] Start: 12-31-2023 COVID-19 Vaccine ( season) COVID-19 Vaccine ( season) [facility] Start: 12-31-2023 COVID-19 Vaccine ( season) COVID-19 Vaccine ( season) [facility] Start: 12-31-2023 COVID-19 Vaccine ( season) COVID-19 Vaccine ( season) [facility] Start: 12-31-2023 Influenza vaccination [facility] Start: 01-30-2023 Bacteria identified in Urine by Culture Urine Culture [facility] Start: 01-30-2023 [facility] Start: 12-30-2022 COVID-19 Vaccine ( season) COVID-19 Vaccine ( season) [facility] Start: 2022 Pneumococcal 0-64 ye ars Vaccine (2 of 2 - PPSV23) Pneumococcal 0-64 years Vaccine (2 of 2 - PPSV23) [facility] Start: 2022 Pneumococcal 0-64 ye ars Vaccine (2 of 2) Pneumococcal 0-64 years Vaccine (2 of 2) [facility] Work Phone: Start: 2022 Pneumococcal Vaccine : 65+ Years (2 of 2 - PCV) Pneumococcal Vaccine: 65+ Years (2 of 2 - PCV) [facility] Start: 12-30-2021 Influenza vaccination Influenza Vacc ine (#1) [facility] Start: 12-30-2020 Influenza vaccination S [facility] Start: 12-31-2019 Influenza vaccination Flu vaccine (# 1) [facility] Work Phone: Start: 08-18-2019 A1C test (Diabetic o r Prediabetic) A1C test (Diabetic or Prediabetic) [facility] Work Phone: Start: 08-18-2019 HbA1c (Bld) [Mass fraction] A1C test (Diabetic or Prediabetic) [facility] Work Phone: Start: 08-18-2019 Hemoglobin A1c measurement A1C test (Diabetic or Prediabetic) [facility] Start: 05-22-2019 End: 05-22-2019 Appointment Appointment [facility] Work Phone: Start: 02-07-2019 Lipid panel Lipid screen [facility] Start: 02-07-2019 Lipid screen Lipid screen [facility] Work Phone: Start: 12-30-2018 Influenza vaccination Flu vaccine (# 1) [facility] Work Phone: Start: 01-10-2018 Pneumococcal Vaccine : 50+ Years (2 of 2 - PCV) Pneumococcal Vaccine: 50+ Years (2 of 2 - PCV) [facility] Start: 01-10-2018 Pneumococcal Vaccine : 65+ Years (2 - PCV) Pneumococcal Vaccine: 65+ Years (2 - PCV) [facility] Start: 2017 RSV Immunization age d 60 or older (1 - 1-dose 60+ series) RSV Immunization aged 60 or older (1 - 1-dose 60+ series) [facility] Start: 2007 Colon cancer screen colonoscopy Colon cancer screen colonoscopy [facility] Work Phone: Start: 2007 Screening for malign ant neoplasm of colon Colon cancer screen colonoscopy [facility] Work Phone: Start: 2007 Shingles Vaccine (1 of 2) Shingles Vaccine (1 of 2) [facility] Start: 2007 Zoster Vaccines (1 o f 2) Zoster Vaccines (1 of 2) [facility] Start: 2002 Screening for malign ant neoplasm of colon Colon cancer screen colonoscopy [facility] Start: 1976 Hepatitis A Vaccines (1 of 2 - Risk 2-dose series) Hepatitis A Vaccines (1 of 2 - Risk 2-dose series) [facility] Start: 1975 Hepatitis C screening Hepatitis C Sc reening [facility] Start: 1969 COVID-19 Vaccine (1) COVID-19 Vaccin e (1) [facility] Start: 1969 Depression Monitoring Depression Mon itoring [facility] Start: 1969 Depression Screen Depression Screen [facility] Start: 1962 COVID-19 Vaccine (1) COVID-19 Vaccin e (1) [facility] Start: 1957 COVID-19 Vaccine (#1) COVID-19 Vacci ne (#1) [facility] Start: 1957 Annual wellness visit Medicare Initial Physical (IPPE) [facility] Start: 1957 Hepatitis B Vaccines (1 of 3 - 3-dose series) Hepatitis B Vaccines (1 of 3 - 3-dose series) [facility] Start: 1957 Lipid panel Lipid Panel [facility] Start: 1957 Screening for malign ant neoplasm of colon [facility] Basic metabolic 2000 panel - Serum or Plasma Basic Metabolic Panel Lab Routine Daily until discontinued starting 03/23/2021, 2 completed [facility] Work Phone: Comment on above: Daily until disconti nued starting 03/23/2021, 2 completed CBC W Auto Different ial panel - Blood CBC Auto Differential Lab Routine Daily until discontinued starting 03/23/2021, 2 completed [facility] Work Phone: Comment on above: Daily until disconti nued starting 03/23/2021, 2 completed End: 06-24-2024 CT Chest WO contrast [employer] Work Phone: Comment on above: Once for 1 Occurrenc es starting 06/24/2024 until 06/24/2024 Culture, Blood 2 Culture, Blood 2 Microbiology STAT 03/19/2021 6:26 PM EST [facility] Work Phone: End: 03-20-2021 Culture, Respiratory Culture, Respiratory Microbiology Routine One Time for 1 Occurrences starting 03/20/2021 until 03/20/2021 [facility] Work Phone: Comment on above: One Time for 1 Occur rences starting 03/20/2021 until 03/20/2021 EKG 12 Lead EKG 12 Lead ECG STAT 03/18/2021 3:20 PM EST [facility] Work Phone: Feeding Tube Feeding Tube Pro cedures Routine 10/30/2020 2:22 PM EDT [facility] Work Phone: End: 09-22-2020 FL WATER SOLUBLE ENEMA W OR WO KUB FL WATER SOLUBLE ENEMA W OR WO KUB Imaging STAT Once for 1 Occurrences starting 09/22/2020 until 09/22/2020 [facility] Work Phone: Comment on above: Once for 1 Occurrenc es starting 09/22/2020 until 09/22/2020 End: 03-23-2021 Glucose [Mass/volume] in Serum or Plasma POCT GLUCOSE Point of Care Testing Routine Now Then Every 6hr for 7 Occurrences starting 03/21/2021 until 03/23/2021 [facility] Work Phone: Comment on above: Now Then Every 6hr f or 7 Occurrences starting 03/21/2021 until 03/23/2021 High Frequency Chest Wall Oscillation (HFCWO) High Frequency Chest Wall Oscillation (HFCWO) Respiratory Care Routine (respiratory use only) until discontinued starting 03/22/2021 [facility] Work Phone: Comment on above: (respirato ry use only) until discontinued starting 03/22/2021 End: 03-20-2021 Legionella Antigen, Urine Legionella Antigen, Urine Microbiology Routine One Time for 1 Occurrences starting 03/20/2021 until 03/20/2021 [facility] Work Phone: Comment on above: One Time for 1 Occur rences starting 03/20/2021 until 03/20/2021 Microscopic examinat ion of blood, culture Culture, Blood Microbiology STAT 03/19/2021 6:26 PM EST [facility] Work Phone: End: 03-20-2021 Microscopic observation [Identifier] in Unspecified specimen by Gram stain Gram Stain Microbiology Routine Once for 1 Occurrences starting 03/20/2021 until 03/20/2021 [facility] Work Phone: Comment on above: Once for 1 Occurrenc es starting 03/20/2021 until 03/20/2021 Oxygen therapy [[facility] Data Set] Initiate Oxygen Therapy Protocol Respiratory Care Routine Daily until discontinued starting 03/20/2021 [facility] Work Phone: Comment on above: Daily until disconti nued starting 03/20/2021 Patient Education \\cps-sql1\\CPS_ PtEducati on\\CDC_FALL_PREVENTION. pdf, \\cps-sql1\\CPS_PtEducati on\\quitting_smoking_[id number].pdf [facility] Work Phone: RT Communication Order RT Commun ication Order Respiratory Care STAT Daily until discontinued starting 03/18/2021 [facility] Work Phone: Comment on above: Daily until disconti nued starting 03/18/2021 RT Communication Order RT Commun ication Order Respiratory Care Routine Daily until discontinued starting 03/20/2021 [employer] Work Phone: Comment on above: Daily until disconti nued starting 03/20/2021 End: 03-20-2021 STREP PNEUMONIAE ANTIGEN STREP PNEUMONIAE ANTIGEN Microbiology Routine One Time for 1 Occurrences starting 03/20/2021 until 03/20/2021 [facility] Work Phone: Comment on above: One Time for 1 Occur rences starting 03/20/2021 until 03/20/2021 End: 03-18-2021 Urinalysis Urinalysis Lab STAT One Time for 1 Occurrences starting 03/18/2021 until 03/18/2021 [facility] Work Phone: Comment on above: One Time for 1 Occur rences starting 03/18/2021 until 03/18/2021 End: 03-18-2021 Urine Drug Screen Urine Drug Screen Lab STAT One Time for 1 Occurrences starting 03/18/2021 until 03/18/2021 [facility] Work Phone: Comment on above: One Time for 1 Occur rences starting 03/18/2021 until 03/18/2021 End: 09-22-2020 XR ABDOMEN (KUB) (SINGLE AP VIEW) XR ABDOMEN (KUB) (SINGLE AP VIEW) Imaging Routine Once for 1 Occurrences starting 09/22/2020 until 09/22/2020 [facility] Work Phone: Comment on above: Once for 1 Occurrenc es starting 09/22/2020 until 09/22/2020 Immunizations Immunization Date Immunization Notes Care Provider [facility] 02-02-2021 influenza virus vacc ine, unspecified formulation Rashaad Smith [employer]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 01-10-2017 pneumococcal polysaccharide vaccine, 23 valent Elizabeth Moura MD Work Phone: [facility] 01-10-2017 tetanus toxoid, redu delia diphtheria toxoid, and acellular pertussis vaccine, adsorbed Elizabeth Moura MD Work Phone: [facility] Work Phone: Payers Date Payer Category Payer Self-pay [id number] 2019 Medicaid [id number] 2019 Medicaid [id number]. [id number] 2018 Private Health Insurance [id number]. [id number] 2018 [place] [facility] [place]-Present [phone] [address] [place] [address] xxxxxxxxx [id number]. [id number] 1957 Unknown [id number] 2.16.840.1.899235.3.579.2. 668 1957 Unknown [id number] 2.16.840.1.976769.3.579.2. 668 Private Health Insurance Unknown [id number] 2.16.840.1.275699.3.579.2. 462 Unknown [id number] 2.16.840.1.533526.3.579.2. 462 Unknown [id number] 2.16.840.1.947101.3.579.2. 462 Unknown [id number] 2.16.840.1.131384.3.579.2. 462 Unknown [id number] 2.16.840.1.535077.3.579.2. 462 Unknown [id number] 2.16.840.1.728082.3.579.2. 462 Unknown [id number] 2.16.840.1.998108.3.579.2. 462 Unknown [id number] 2.16.840.1.406335.3.579.2. 462 Unknown [id number] 2.16.840.1.588300.3.579.2. 462 Unknown [id number] 2.16.840.1.171933.3.579.2. 462 Unknown [id number] 2.16.840.1.269861.3.579.2. 462 Unknown [id number] 2.16.840.1.313870.3.579.2. 462 Unknown [id number] 2.16.840.1.763255.3.579.2. 462 Unknown [id number] 2.16.840.1.284114.3.579.2. 462 Unknown [id number] 2.16840.1.748908.3.579.2. 462 Unknown [id number] 2.16.840.1.154731.3.579.2. 462 Unknown [id number] 2.16840.1.580730.3.579.2. 462 Unknown [id number] 2.16840.1.478798.3.579.2. 462 Unknown [id number] 2.840.1.922362.3.579.2. 462 Unknown [id number] 2.840.1.561780.3.579.2. 462 Unknown [id number] 2.840.1.242552.3.579.2. 462 Unknown [id number] 2.840.1.782430.3.579.2. 462 Unknown [id number] 2.840.1.224922.3.579.2. 462 Unknown [id number] 2.840.1.985611.3.579.2. 462 Unknown [id number] 2.840.1.866315.3.579.2. 462 Unknown [id number] 2.840.1.731294.3.579.2. 462 Unknown [id number] 2.840.1.479770.3.579.2. 462 Unknown [id number] 2.840.1.272169.3.579.2. 462 Unknown [id number] 2.840.1.246736.3.579.2. 462 Unknown [id number] 2.840.1.736730.3.579.2. 462 Unknown [id number] 2.16840.1.738132.3.579.2. 462 Unknown [id number] 2.840.1.352774.3.579.2. 462 Unknown [id number] 2.16.840.1.097215.3.579.2. 462 Unknown [id number] 2.16.840.1.144275.3.579.2. 462 Unknown [id number] 2.16.840.1.741135.3.579.2. 462 Unknown [id number] 2.16.840.1.564659.3.579.2. 462 Unknown [id number] 2.16.840.1.304747.3.579.2. 462 Unknown [id number] 2.16.840.1.219400.3.579.2. 462 Unknown [id number] 2.16.840.1.232097.3.579.2. 462 Unknown [id number] 2.16.840.1.709875.3.579.2. 462 Unknown [id number] 2.16.840.1.604930.3.579.2. 462 Unknown [id number] 2.16.840.1.459534.3.579.2. 462 Unknown [id number] 2.16.840.1.965965.3.579.2. 462 Unknown [id number] 2.16.840.1.068838.3.579.2. 462 Unknown [id number] 2.16.840.1.730713.3.579.2. 462 Unknown [id number] 2.16.840.1.180772.3.579.2. 462 Unknown [id number] 2.16.840.1.689677.3.579.2. 462 Unknown [id number] 2.16.840.1.135497.3.579.2. 462 Unknown [id number] 2.16.840.1.024324.3.579.2. 462 Unknown [id number] 2.16.840.1.987359.3.579.2. 462 Unknown [id number] 2.16.840.1.652784.3.579.2. 462 Unknown [id number] 2.16.840.1.784484.3.579.2. 462 Unknown [id number] 2.16.840.1.593302.3.579.2. 462 Unknown [id number] 2.16.840.1.157547.3.579.2. 462 Unknown [id number] 2.16.840.1.417653.3.579.2. 462 Unknown [id number] 2.16.840.1.922391.3.579.2. 462 Unknown [id number] 2.16.840.1.394740.3.579.2. 462 Unknown [id number] 2.16.840.1.490037.3.579.2. 462 Unknown [id number] 2.16.840.1.006491.3.579.2. 462 Unknown [id number] 2.16.840.1.108190.3.579.2. 462 Social History Date Type Detail Facility Tobacco smoking status MAIS Unknown if ever smoked [facility] Work Phone: Start: 1955 Sex Assigned At Not on file [facility] Work Phone: Start: 11-05-2018 End: 06-26-2020 Tobacco smoking status NHIS Former smoker [facility] Work Phone: End: 02-06-2016 History of tobacco use Current smoker [employer] Phone: End: 02-06-2016 History of tobacco use Cigar Smoker [employer] Phone: Start: 02-05-2018 End: 06-26-2020 Tobacco use and exposure Never used [facility] Work Phone: Start: 06-26-2020 End: 05-20-2022 Alcohol intake Current drinker of alcohol (finding) [facility] Work Phone: Start: 07-08-2018 Alcohol Comment 2 times per wo rk, occasionally [facility] Work Phone: Start: 05-10-2022 End: 05-20-2022 Exposure to SARS-CoV-2 (event) Not sure [facility] Work Phone: Start: 09-22-2020 End: 05-20-2022 Alcohol intake [facility] Start: 1955 Sex Assigned At Male [facility] End: 02-06-2016 History of tobacco use Cigarette Smoker [facility] Start: 05-20-2022 End: 10-02-[address] [facility] How often to you have a drink containing alcohol? Never [facility] How many standard drinks containing alcohol do you have on a typical day? Patient does not drink [facility] Start: 11-29-2021 End: 08-16-2024 Sex Male (finding) [facility] Tobacco smoking status NHIS Unknown if ever smoked [facility] Work Phone: NEGATED: Highlighted rowStart: 05-22-2019 End: 05-22-2019 Alcohol use Alcohol use [facility] Work Phone: NEGATED: Highlighted rowStart: 05-22-2019 End: 05-22-2019 Assertion Current some day smoker [facility] Work Phone: NEGATED: Highlighted rowStart: 05-22-2019 End: 05-22-2019 Details of drug misuse behavior Details of drug misuse behavior [facility] Work Phone: NEGATED: Highlighted rowStart: 05-22-2019 End: 05-22-2019 Tobacco use and exposure Tobacco use and exposure [facility] Work Phone: Clinical Notes 03-18-2021 to [...] to fax the information to the office. [phone] [facility] 05-03-2024 Miscellaneous Notes Gissel is calling to let Dr. Burgos know that the medication he prescribed he not certified, she is going to fax the information to the office. [phone] documented in this encounter [facility] 11-22-2023 History of Presen t illness Narrative Images from the original note were not included. Speech-Language Pathology SPEECH LANGUAGE PATHOLOGY [facility] Modified Barium Swallow [...] despite effort. 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 Frequency: Per treating SALES REPRESENTATIVE PRINTING Barriers: large osteophytes, bridging with anterior projection [...] Prior MBSS?: No, unable to locate in [facility] Current Diet: Puree diet with ?liquid (no information from [place]) Textures tested: - thin liquid, (cup edge) - mildly thick liquid, (cup edge) - puree, (teaspoon) Patient position: lateral Past Medical History: Past Medical History: Diagnosis Date TREVER (acute kidney injury) (CMS/HCC) ([facility]) Alcohol abuse 07/08/2018 Anxiety C1 spinal cord injury ([facility]/HCC) ([facility]) Depression Fall 06/2018 Schizophrenia ([facility]) Past Surgical History: Past Surgical History: Procedure Laterality Date CERVICAL FUSION 07/09/2014 C2-6 cervical fusion GASTROSTOMY TUBE PLACEMENT 07/13/2018 TRACHEOSTOMY 07/13/2018 Admission Diagnosis: Patient Active Problem List Diagnosis Date Noted Respiratory syncytial virus (RSV) 03/22/2021 Hypoxia 03/19/2021 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 Chronic latent schizophrenia ([facility]) 08/15/2018 Prolonged Q-T interval on ECG 08/15/2018 Abdominal wall abscess 08/15/2018 Central cord syndrome (CMS/HCC) ([facility]) 08/15/2018 Respiratory failure after trauma ([facility]) 08/15/2018 Pressure ulcer of sacral region, stage 2 ([facility]) 08/09/2018 Urinary retention 07/28/2018 Acute respiratory failure with hypoxia ([facility]) 07/26/2018 Mild bibasilar atelectasis 07/26/2018 Hospital-acquired pneumonia 07/26/2018 Bilateral pleural effusion 07/26/2018 Ileus (CMS/HCC) ([facility]) 07/23/2018 TREVER (acute kidney injury) ([facility]) 07/23/2018 Hypokalemia 07/21/2018 Vertebral artery occlusion, bilateral 07/11/2018 Vitamin D insufficiency 07/10/2018 Alcohol abuse 07/08/2018 Closed wedge compression fracture of first thoracic vertebra ([facility]) 07/08/2018 Traumatic nondisp spondylolisthesis of C3 vertebra with closed fx, initial encounter ([facility]) 07/08/2018 Closed fracture dislocation of cervical spine ([facility]) 07/08/2018 Pain: Pt denies any current pain. Reason for current admission: Pt with h/o of PEG and trach from 2019. Pt is currently decannulated. 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 Noted very large connective [...] able to eat by mouth. Therapy Time SALES REPRESENTATIVE PRINTING Individual Minutes Time In: 1150 Time Out: 1215 Minutes: 25 ZACHARY Sun documented in this encounter [facility] 10-02-2023 Emergency department Note [facility] at bedside at this time Mami Lantigua RN 10/02/[address] [facility] 10-02-2023 Emergency department Note [facility] at bedside at this time Mami Lantigua RN 10/02/23 1427 This RN gave report to Marnie at [facility] at this time Mami Lantigua RN 10/02/23 1358 This RN went to evaluate patient, was on 2L o2 and does not wear at baseline, plan is dc, this RN turned o2 off to trial patient, spo2 monitor on Mami Lantigua RN 10/02/[address] cart Eloisa Alfaro RN 10/02/23 1044 Emergency Department Encounter [facility] ED Patient: Kathya Hooper : [...] are mis-transcribed.) Fei Farooq MD Acute Care [facility] Fei Farooq MD 10/02/23 1129 Pt [facility] for Left sided facial droop. Per EMS nurse is new and does not know patient very well but he is A&O x 2 at baseline. Per EMS the nurse states it was 20 mins ago. Contacted nurse that was caring for him and she states that was the first time she has seen him for that day, operations supervisor 2nd shift did not report any problems. EMS [...] schizophrenia. BS 131. documented in this encounter [facility] 10-02-2023 Emergency department Note This RN gave report to Marnie at [facility] at this time Mami Lantigua RN 10/02/[address] [facility] 10-02-2023 Emergency department Note This RN went to evaluate patient, was on 2L o2 and does not wear at baseline, plan is dc, this RN turned o2 off to trial patient, spo2 monitor on Mami Lantigua RN 10/02/[address] [facility] 10-02-2023 Emergency department Note Pt to ct via cart Eloisa Alfaro RN 10/02/[address] [facility] 10-02-2023 Emergency department Triage note Pt was brought [facility] from [facility] for Left sided facial droop. Per EMS nurse is new and does not know patient very well but he is A&O x 2 at baseline. Per EMS the nurse states it was 20 mins ago. Contacted nurse that was caring for him and she states that was the first time she has seen him for that day, operations supervisor 2nd shift did not report any problems. EMS [...] the facility. Hx of schizophrenia. BS 131. [facility] 10-02-2023 Physician Emergency department Note Emergency Department Encounter [facility] ED Patient: Kathya Hooper : [...] are mis-transcribed.) Fei Farooq MD Acute Care [facility] Fei Farooq MD 10/02/23 1129 [facility] Work Phone: 05-20-2022 Emergency department Note Report called to residential. Copy of Xray report sent with discharge packet Gary Ghosh RN 05/20/222007 [facility] 05-20-2022 Emergency department Note Report called to residential. Copy of Xray report sent with discharge packet Gary Ghosh RN 05/20/222007 Emergency Department Encounter [facility] ED Patient: Kathya Hooper : 1955 Date of Evaluation: 05/20/2022 ED Supervising Physician: Abelardo Rios DO I independently examined and evaluated Kathya Hooper. This will serve as my Supervisory note as the mid level clinician of record and shared attestation. I [...] provider for clarification.) Abelardo Rios DO Acute [facility] Abelardo Rios DO 05/20/222014 documented in this encounter [facility] 05-20-2022 Miscellaneous Notes Associated Order(s): Feeding Tube Replacement Procedure Feeding Tube Replacement Performed by: Dejah Hazel DO Authorized by: Abelardo Rios DO Consent: Consent obtained: Verbal Consent given by: Patient [place] protocol: Patient identity confirmed: Verbally with patient [...] DO Resident 05/20/221931 documented in this encounter [facility] 05-20-2022 Note Associated Order(s): Feeding Tube Replacement Procedure Feeding Tube Replacement Performed by: Dejah Hazel DO Authorized by: Abelardo Rios DO Consent: Consent obtained: Verbal Consent given by: Patient [place] protocol: Patient identity confirmed: Verbally with patient [...] completion: Tolerated well, no immediate complications Dejah Haezl DO Resident 05/20/221931 [facility] Phone: 05-20-2022 Note Associated Order(s): Feeding Tube Replacement Procedure Feeding Tube Replacement Performed by: Dejah Hazel DO Authorized by: Abelardo Rios DO Consent: Consent obtained: Verbal Consent given by: Patient [place] protocol: Patient identity confirmed: Verbally with patient [...] immediate complications Dejah Hazel DO Resident 05/20/221931 [facility] Phone: 05-20-2022 Physician Emergency department Note Emergency Department Encounter [facility] ED Patient: Kathya Hooper : 1955 Date of Evaluation: 05/20/2022 ED Supervising Physician: Abelardo Rios DO I independently examined and evaluated Kathya Hooper. This will serve as my Supervisory note as the mid level clinician of record and shared attestation. I [...] [employer] [facility] [employer] Abelardo Rios DO 05/20/222014 [place] Phone: 03-24-2021 Note Hospitalist Discharg e Summary [...] with antibiotics. He resides in [facility]. He was stablized and discharged [...] Tomography ACCESSION EXAM DATE/TIME PROCEDURE ORDERING PROVIDER [id number] 03/18/2021 16:26 EST CTA Head/Neck w/ + w/o 129216 -alyson CASTRO CPT code 87832 26114 Q9967 Reason For Exam (CTA Head/Neck w/ [...] with antibiotics. He resides in [facility]. He was stablized and discharged [...] Tomography ACCESSION EXAM DATE/TIME PROCEDURE ORDERING PROVIDER [id number] 03/18/2021 16:26 EST CTA Head/Neck w/ + w/o [id number] alyson ARCHIBALD CPT code 39940 63899 Q9967 Reason For Exam (CTA Head/Neck [...] Tomography ACCESSION EXAM DATE/TIME PROCEDURE ORDERING PROVIDER [id number] 03/18/2021 16:27 EST CTA Chest w/ + w/o [id number] -CASTRO, Contrast BOO CPT code 10716 Q9967 Reason For Exam (CTA Chest w/ + w/o Contrast) pulmonary embolus Report CTA chest with and without contrast History: chest pain Protocol: 1 mm images after IV contrast, 3D rendering performed by ok on a separate workstation No evidence of [...] Radiology ACCESSION EXAM DATE/TIME PROCEDURE ORDERING PROVIDER [id number] 03/19/2021 17:10 EST CR Chest Portable 003885 -BRADY DESAI CPT code 15226 Reason For Exam (CR Chest Portable) hypoxia [...] Result Date: 03/18/2021 Patient Name: KATHYA HOOPER [facility]#: [id number] Diagnostic Radiology ACCESSION EXAM DATE/TIME PROCEDURE ORDERING PROVIDER [id number] 03/18/2021 15:30 EST CR Chest Portable 115138 -BOO CASTRO CPT code 24694 Reason For Exam (CR Chest Portable) sob, [...] on file. Discharging Nurse: Discharging Hospital Unit/Room#: 210/2479 Discharging Unit Phone Number: Emergency Contact: Extended Emergency Contact Information Primary Emergency Contact: Jason Hooper [facility] Relation: Parent Past Surgical History: Past Surgical History: Procedure Laterality Date CERVICAL FUSION 07/09/2014 C2-6 cervical fusion GASTROSTOMY TUBE PLACEMENT 07/13/2018 TRACHEOSTOMY 07/13/2018 Immunization History: Immunization History Administered Date(s) Administered Pneumococcal Polysaccharide ([id number]) 01/10/2017 Tdap (Boostrix, Adacel) 01/10/2017 Active Problems: Patient Active Problem List Diagnosis Code Closed fracture dislocation of cervical spine ([facility]) S12.9XXA Traumatic nondisp spondylolisthesis of C3 vertebra with closed fx, initial encounter ([facility]) S12.231A Closed wedge compression fracture of first thoracic vertebra ([facility]) S22.010A Central cord syndrome ([facility]) S14.129A Chronic latent schizophrenia ([facility]) F21 Alcohol abuse F10.10 Respiratory failure after trauma ([facility]) J96.90 Vitamin D insufficiency E55.9 Vertebral artery occlusion, 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 Hypokalemia E87.6 Ileus ([facility]) K56.7 TREVER (acute kidney injury) ([facility]) N17.9 Acute respiratory failure with hypoxia ([facility]) J96.01 Hospital-acquired pneumonia J18.9, Y95 Bilateral pleural effusion J90 Mild bibasilar atelectasis J98.11 Urinary retention R33.9 Prolonged Q-T interval on ECG R94.31 Pressure ulcer of sacral region, stage 2 ([facility]) L89.152 Abdominal wall abscess L02.211 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[facility]) K65.4 Hypoxia R09.02 Respiratory syncytial [...] (Extended Spectrum Beta Lactamase) 08/20/18 08/20/18 Cristy Gupta, KUSHAL 09/24/20 Evy Farris RN 08/15/18 - Klebsiella [...] MENTAL STATUS:} IV Access: { CHRIS IV ACCESS:843621201} Nursing Mobility/ADLs: Walking {CHP DME ADLs:674597790} Transfer {CHP DME ADLs:941253763} Bathing {CHP DME ADLs:922035672} Dressing {CHP DME ADLs:979117599} Toileting {CHP DME ADLs:885706950} Feeding {CHP DME ADLs:116950048} Etymology Professor {P DME ADLs:259967825} Med Delivery { CHRIS MED Delivery:835783022} Wound Care Documentation and Therapy: Negative Pressure Wound Therapy Abdomen Left (Active) Number of days: 947 Wound Sacrum Mid (Active) Number of days: Elimination: Continence: Bowel: {YES / NO:} Bladder: {YES / NO:} Urinary Catheter: {Urinary Catheter:148625478} Colostomy/Ileostomy/Ileal Conduit: {YES / NO:} Date of Last BM: No intake or output data in the 24 hours ending 03/24/21 1013 I/O last 3 completed shifts: In: 660 [NG/GT:660] Out: - Safety Concerns: { CHRIS Safety Concerns:750114455} Impairments/Disabilities: { CHRIS Impairments/Disabilities:20339658 3} Nutrition Therapy: Current Nutrition Therapy: { CHRIS Diet List:926514997} Routes of Feeding: {[facility] DME Other Feedings:662822244} Liquids: {[facility] liquid thickness:21775} Daily Fluid Restriction: {[facility] D[facility] Yes amt example:224887519} Last Modified Barium Swallow with Video (Video Swallowing Test): {Done Not Done Date:} Treatments at the Time of Hospital Discharge: Respiratory Treatments: Oxygen Therapy: {Therapy; copd oxygen:23624} Ventilator: { CC Vent List:820692205} Rehab Therapies: {THERAPEUTIC INTERVENTION:8541148892} Weight Bearing Status/Restrictions: {[facility] Weight Bearin} Other Medical Equipment (for information only, NOT a DME order): {EQUIPMENT:185402224} Other Treatments: Patient's personal belongings (please select all that are sent with patient): {[facility] DME Belongings:111618607} RN SIGNATURE: {Esignature:628228417} CASE MANAGEMENT/SOCIAL WORK SECTION Inpatient Status Date: Readmission Risk Assessment Score: Readmission Risk Risk of Unplanned Readmission: 25 Discharging to Facility/ Agency Name: [facility] Address: [address] [place] [address] Dialysis Facility (if applicable) Name: Address: Dialysis Schedule: Phone: Fax: Bank Secrecy Act Officer/Mailing Specialist signature: PHYSICIAN SECTION Prognosis: Good Condition at Discharge: Stable Rehab Potential (if transferring to Rehab): Good Recommended Labs or Other Treatments After Discharge: Physician Certification: I certify the above information and transfer of Kathya Hooper is necessary for the continuing treatment of the diagnosis listed and that he requires [facility] Facility for greater 30 days. Update Admission [...] loss Fluid Accumulation: No significant fluid accumulation Hogshead Press Operator Strength: Not Performed Estimated Daily Nutrient Needs: Energy (kcal): 6361-9878 (25-30 kcal/kg IBW); Weight Used for Energy Requirements: [place] (86.2 kg) Protein (g): 86-103 (1.0-1.2 g protein/kg IBW); Weight Used for Protein Requirements: [place] (86.2 kg) Fluid (ml/day): per . At [...] on 03/02/21, October weight= 185.5# on 01/29/21) [place] Body Weight: 190 lbs; % [place] Body Weight 97.8 % BMI: 24 Adjusted [...] Skin, Weight Discharge Planning: Enteral Nutrition Contact: *[phone] Images from the original note were not included. Hospitalist Progress Note 03/23/2021 9:27 AM Subjective: Admit Date: 03/19/2021 PCP: No primary care provider on file. Room#: 465/6831 Patient seen and examined. Laying in bed. [...] from the original note were not included. [facility], Pulmonary Critical Care and Sleep Medicine [address] [place], [place] [id number] Patient - Kathya Hooper, Age - 66 y.o. - 1955 Room Number - 465/4651 Consulting - Rafa Michel MD Primary Care Physician - No primary care provider on file. [facility] # - [id number] Date of Admission - 03/19/2021 3:52 PM [...] MCV 92.0 PLT 211 BMP: Recent Labs 03/21/2115503/21/2115503/23/21347 NA 136 < > 142 K 3.4* [...] of bed. Pt thought there was a voice over artist in the corner of his room. When pt got his meds he calmed down. Pt now watching tv. Call light within reach. Bed alarm on. Images from the original note were not included. [facility], Pulmonary Critical Care and Sleep Medicine [address] [place], [place] [id number] Patient - Kathya Hooper, Age - 66 y.o. - 1955 Room Number - 465/4651 Consulting - Rafa Michel MD Primary Care Physician - No primary care provider on file[facility] [id number] Date of Admission - 03/19/2021 3:52 PM [...] No primary care provider on file. Room#: 465/1905 Patient seen and examined. Laying in bed. [...] 66 y.o. - 1955 Room Number - [facility]/4651 N - [id number] Date of Admission - 03/19/2021 3:52 PM [...] Date 03/21/21 0000 - 03/21/21 2359 Shift [id number] 2807-9208 2811-8966 24 Hour Total INTAKE NG/GT(mL/kg) 542(6.4) 542(6.4) [...] included. Hospitalist Progress Note 03/21/2021 9:41 AM [phone]: Please page me for patient care issues. [phone]: Please page [facility] night Hospitalist for any issues. Subjective: [...] Trach PEG 07/13/2018. Presented from SNF to [facility] ED with worsening SOB. Evaluated in [...] loss Fluid Accumulation: No significant fluid accumulation Hogshead Press Operator Strength: Not Performed Estimated Daily Nutrient Needs: Energy (kcal): 1761-2537 (25-30 kcal/kg IBW); Weight Used for Energy Requirements: [place] (86.2 kg) Protein (g): 86-103 (1.0-1.2 g protein/kg IBW); Weight Used for Protein Requirements: [place] (86.2 kg) Fluid (ml/day): per MD. At facility receivin mL free water daily from EN and flushes; Method Used for Fluid Requirements: Other (Comment) Nutrition Related Findings: Massimo score= 15. No skin breakdown or edema noted. S/p Trach/PEG, per SALES REPRESENTATIVE PRINTING note, does not take any food, drink [...] on 03/02/21, January weight= 185.5# on 01/29/21) [place] Body Weight: 190 lbs; % [place] Body Weight 97.8 % BMI: 23.9 BMI [...] Nutrition Contact: 2430 Speech Language Pathology Facility/Department: [facility] TELEMETRY CLINICAL BEDSIDE SWALLOW EVALUATION NAME: [...] states that she is the only family [phone] Images from the original note were not included. Hospitalist Progress Note 03/20/2021 9:58 AM [phone]: Please page me for patient care issues. [phone]: Please page [facility] night Hospitalist for any issues. Subjective: Admit Date: 03/19/2021 PCP: No primary care provider on file. Room#: 465/9104 Interval History: He continues to have cough [...] 03/18/2021 Mr. Hooper was seen at the [facility] emergency department for low oxygen [...] cannot be sent through Care Everywhere.Viral Infections (Vietnamese)documented in this encounter [facility] Work Phone: Evaluation note Diagnosis PEG tube malfunction (HCC)- Primary Mechanical complication of gastrostomy documented in this encounter [facility] Work Phone: Evaluation note* Diagnosis Feeding tube dysfunction, initial encounter- Primary [facility] Work Phone: Evaluation note* Diagnosis Respiratory [...] Work Phone: Evaluation noteNo assessment information available [facility] Work Phone: Evaluation note* Diagnosis Dyspnea, unspecified type- Primary documented in this encounter [facility]* Diagnosis Dysphagia, oropharyngeal phase Feeding difficulties Feeding difficulties and mismanagement documented in this encounter [facility] note* Diagnosis Dysphagia, oropharyngeal phase- Primary Feeding difficulties Feeding difficulties and mismanagement Dysphagia, oropharyngeal phase Feeding difficulties Feeding difficulties and mismanagement documented in this encounter [facility] note* Diagnosis Dislodged gastrostomy tube- Primary documented in this encounter [facility] note* Diagnosis Chronic cough Cough documented in this encounter [facility] note* Diagnosis Chronic cough- Primary Cough Chronic cough Cough [facility]* Attachments The following attachments cannot be sent through Care Everywhere. * PEG (Percutaneous Endoscopic Gastrostomy): Post-op (Vietnamese) documented in this [facility] Work Phone: Hospital Discharge instructions* Attachments The following attachments cannot be sent through Care Everywhere. * Feeding Tube: General Info (Vietnamese) documented in this [facility] Work Phone: Hospital Discharge instructions* Instructions* Mary Cocrhan PA-C - 05/15/2021 Please return to the ED if you have any new or worsening symptoms. documented in this [facility] Work Phone: Hospital Discharge instructions* Attachments The following attachments cannot be sent through Care Everywhere. * Hip Pain (Vietnamese) * Contusion (Vietnamese) documented in this [facility] Work Phone: Hospital Discharge instructions* Attachments The following attachments cannot be sent through Care Everywhere. * Shortness of Breath (Dyspnea) Discharge Instructions (Vietnamese) documented in this [facility] Discharge instructions* Attachments The following attachments cannot be sent through Care Everywhere. * How to Care for Your Gastrostomy Tube (Vietnamese) [facility] (n[facility]ative)No reason for referral information available[facility] System Work Phone: Reason for visit Narrative* Imaging (Routine) - Closed Specialty Diagnoses / Procedures Referred By Contlang t Referred To Contact Radiology Diagnoses Chronic cough Procedures CT chest wo IV contrast Rashaad Smith APRN - SIM [address] [address] Phone: tel: fax: Referral ID Status Reason Start Date Expiration Date Visits Re quested Visits Authorized [id number] Closed 06/12/2024 06/12/2025 1 1 [facility] Summary Purpose Family History No Family History Records FoundNo Family History Records FoundThere may be information available, but it has not been provided by the sender.No Family History Records FoundNo Family History Records FoundNo Family History Records FoundNo Family History Records Found Advance Directives No Advanced Directives Records FoundDocuments on File Type Date Recorded Patient 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 Maintenance 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 Expl anation ACP-Advance Directive ACP-Advance Directive 08/07/2018 1:53 PM ACP-Power of Social Work Lecturer Latest Code Status on File Code Status Date Activated Date Inactivated Comments Full Code 08/15/2018 8:27 PM 08/22/2018 4:31 PM Full Code 08/15/2018 8:12 PM 08/15/2018 8:27 PM Full Code 07/08/2018 8:28 PM 08/01/2018 2:39 PM Documents on File Type Date Recorded Patient Electrical Maintenance Engineer Expl anation ACP-Advance Directive ACP-Power of Social Work Lecturer ACP-Advance Directive 08/07/2018 1:53 PM Latest Code Status on File Code Status Date Activated Date Inactivated Comments Full Code 03/20/2021 12:17 AM Full Code 08/15/2018 8:27 PM 08/22/2018 4:31 PM Documents on File Type Date Recorded Patient Electrical Maintenance Engineer Expl anation ACP-Advance Directive ACP-Power of Social Work Lecturer ACP-Advance Directive 03/26/2021 9:48 AM ACP-Advance Directive 08/07/2018 1:53 PM Latest Code Status on File Code Status Date Activated Date Inactivated Comments Full Code 03/20/2021 12:17 AM 03/24/2021 3:23 PM Documents on File Type Date Recorded Patient Electrical Maintenance Engineer Expl anation Advance Directives and Livin g Will Advance Directives and Livin g Will 08/07/2018 1:53 PM Power of Social Work Lecturer Documents on File Type Date Recorded Patient Electrical Maintenance Engineer Expl anation Advance Directives and Livin g Will 05/23/2022 10:48 AM Advance Directives and Livin g Will 03/19/2021 Documents on File Type Date Recorded Patient Electrical Maintenance Engineer Expl anation Advance Directives and Living Will 03/19/2021 Documents on File Type Date Recorded Patient Electrical Maintenance Engineer Expl 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 * Feeding Tube: General Info (Vietnamese) documented in this encounter Assessments Diagnosis PEG [...] Complaint and Reason for Visit Chief Complaint [facility] LABWORK [facility] WORK [facility] WORK [facility]WORK [facility] LABWORK [facility] LABWORK [facility] WORK [facility] LABWORK NURING HOME LABWORK [facility] LABWORK CH[facility] LAB WORK [facility] LABWORK Chief Complaint [facility] LABWORK CHCF LABWORK [facility] LABWORK [facility] LAB WORK CHCF LABWORK NURING HOME LABWORK CHCF LABWORK [facility] LAB WORK CHCF LABWORK [facility]CF LABWORK CHCF LAB WORK [facility] LAB WORK CHCF BLOOD WORK [facility] LABWORK [facility] LAB WORK Chief Complaint CHCF LABWORK CHCF LABWORK [facility] LAB WORK CHCF LABWORK NURING HOME LABWORK CHCF LABWORK CHCF LAB WORK CHCF LABWORK CHCF LABWORK CHCF LAB WORK CHCF LAB WORK CHCF BLOOD WORK CHCF LABWORK LABWORK LABWORK CHCF LAB WORK Chief Complaint CHCF LABWORK CHCF LAB WORK CHCF LABWORK NURING HOME LABWORK CHCF LABWORK CHCF LAB WORK CHCF LABWORK CHCF LABWORK CHCF LAB WORK CHCF LAB WORK CHCF BLOOD WORK CHCF LABWORK LABWORK LABWORK CHCF LAB WORK Chief Complaint CHCF LAB WOR K [facility] LABWORK NURING HOME LABWORK CHCF LABWORK CHCF LAB WORK CHCF LABWORK CHCF LABWORK CHCF LAB WORK CHCF LAB WORK CHCF BLOOD WORK CHCF LABWORK LABWORK LABWORK CHCF LAB WORK Chief Complaint CHCF LAB WOR K CHCF LABWORK NURING HOME LABWORK CHCF LABWORK CHCF LAB WORK CHCF LABWORK CHCF LABWORK CHCF LAB WORK CHCF LAB WORK CHCF BLOOD WORK CHCF LABWORK LABWORK LABWORK CHCF LAB WORK LABWORK CHCF LABWORK Chief Complaint CHCF LABWORK NURING HOME LABWORK CHCF LABWORK CHCF LAB WORK CHCF LABWORK CHCF LABWORK CHCF LAB WORK CHCF LAB WORK CHCF BLOOD WORK CHCF LABWORK LABWORK LABWORK CHCF LAB WORK LABWORK CHCF LABWORK CHCF LAB WORK Chief Complaint CHCF BLOOD W ORK [facility] LABWORK CHCF LABWORK LABWORK LABWORK CHCF LAB WORK LABWORK CHCF LABWORK CHCF LAB WORK LABWORK CHCF LAB WORK CHCF LAB WORK LABWORK CHCF LAB WORK Chief Complaint CHCF BLOOD W ORK CHCF LABWORK CHCF LABWORK LABWORK LABWORK CHCF LAB WORK LABWORK CHCF LABWORK CHCF LAB WORK LABWORK CHCF LAB WORK CHCF LAB WORK LABWORK CHCF LAB WORK LABWORK Chief Complaint LABWORK LABWORK CHCF LAB WORK LABWORK CHCF LABWORK CHCF LAB WORK LABWORK CHCF LAB WORK CHCF LAB WORK LABWORK CHCF LAB WORK LABWORK CHCF LAB WORK Chief Complaint LABWORK CHCF LAB WORK LABWORK CHCF LABWORK CHCF LAB WORK LABWORK CHCF LAB WORK CHCF LAB WORK LABWORK CHCF LAB WORK LABWORK CHCF LAB WORK CHCF LABWORK Chief Complaint LABWORK CHCF LABWORK CHCF LAB WORK LABWORK CHCF LAB WORK CHCF LAB WORK LABWORK CHCF LAB WORK LABWORK CHCF LAB WORK CHCF LABWORK CHCF LABWORK LABWORK CHCF LAB WORK Chief Complaint CHCF LAB WOR K LABWORK CHCF LAB WORK CHCF LAB WORK LABWORK CHCF LAB WORK LABWORK CHCF LAB WORK CHCF LABWORK CHCF LABWORK LABWORK CHCF LAB WORK CHCF LAB WORK Chief Complaint CHCF LAB WOR K CH[facility] LAB WORK LABWORK CHCF LAB WORK LABWORK CHCF LAB WORK CHCF LABWORK CHCF LABWORK LABWORK CHCF LAB WORK CHCF LAB WORK LABWORK CHCF LAB WORK Chief Complaint CHCF LAB WOR K LABWORK CHCF LAB WORK LABWORK CHCF LAB WORK CHCF LABWORK CHCF LABWORK LABWORK CHCF LAB WORK CHCF LAB WORK LABWORK CHCF LAB WORK CHCF LAB WORK Chief Complaint CHCF LAB WOR K LABWORK CHCF LAB WORK CHCF LABWORK [facility]CF LABWORK LABWORK CHCF LAB WORK CHCF LAB WORK LABWORK CHCF LAB WORK LABWORK CHCF LAB WORK CHCF LAB WORK CHCF LABWORK CHCF LABWORK Chief Complaint LABWORK CHCF LAB WORK [facility] LABWORK [facility]CF LABWORK LABWORK CHCF LAB WORK CHCF LAB WORK LABWORK CHCF LAB WORK LABWORK CHCF LAB WORK CHCF LAB WORK [facility] LABWORK LABWORK CHCF LABWORK Chief Complaint LABWORK CHCF LAB WORK CHCF LAB WORK LABWORK CHCF LAB WORK LABWORK CHCF LAB WORK CHCF LAB WORK [facility] LABWORK LABWORK CHCF LABWORK CHCF LAB WORK Chief Complaint CHCF LAB WOR K LABWORK CHCF LAB WORK CHCF LAB WORK [facility] LABWORK LABWORK CHCF LABWORK CH[facility] LAB WORK LABWORK LABWORK LABWORK LABWORK CHCF LABWORK [facility] LAB WORK LABWORK LABWORK Chief Complaint LABWORK CHCF LAB WORK CH[facility] LAB WORK [facility] LABWORK LABWORK CHCF LABWORK CHCF LAB WORK LABWORK LABWORK LABWORK LABWORK [facility] LABWORK CH[facility] LAB WORK LABWORK LABWORK CHCF LABWORK Chief Complaint [facility]CF LAB WOR K [facility] LAB WORK [facility] LABWORK LABWORK CHCF LABWORK [facility] LAB WORK LABWORK LABWORK LABWORK LABWORK CHCF LABWORK [facility] LAB WORK LABWORK LABWORK [facility] LABWORK [facility] LAB WORK Chief Complaint [facility] LABWORK LABWORK [facility] LABWORK [facility] LAB WORK LABWORK LABWORK LABWORK LABWORK [facility] LABWORK [facility] LAB WORK LABWORK LABWORK [facility] LABWORK [facility] LAB WORK [facility] LABWORK [facility] LAB WORK Chief Complaint LABWORK CHCF LABWORK [facility] LAB WORK LABWORK LABWORK LABWORK LABWORK CHCF LABWORK [facility]CF LAB WORK LABWORK LABWORK CHCF LABWORK CHCF LAB WORK CHCF LABWORK LABWORK CHCF LAB WORK Chief Complaint LABWORK LABWORK LABWORK LABWORK CHCF LABWORK CHCF LAB WORK LABWORK LABWORK CHCF LABWORK CHCF LAB WORK CHCF LABWORK LABWORK CHCF LAB WORK LABWORK CHCF LABWORK Chief Complaint LABWORK CHCF LABWORK CHCF LAB WORK LABWORK LABWORK CHCF LABWORK CHCF LAB WORK CHCF LABWORK LABWORK CHCF LAB WORK LABWORK CHCF LABWORK LABWORK LABWORK Chief Complaint CHCF LABWORK CHCF LAB WORK LABWORK LABWORK CHCF LABWORK CHCF LAB WORK CHCF LABWORK LABWORK CHCF LAB WORK LABWORK CHCF LABWORK LABWORK LABWORK LABWORK CHCF LAB WORK CHCF LAB WORK CHCF LABWORK Chief Complaint CHCF LABWORK CHCF LAB WORK LABWORK LABWORK CHCF LABWORK CHCF LAB WORK CHCF LABWORK LABWORK CHCF LAB WORK LABWORK CHCF LABWORK LABWORK LABWORK LABWORK CHCF LAB WORK CHCF LAB WORK CHCF LABWORK CHCF LABWORK Chief Complaint LABWORK LABWORK CHCF LABWORK CHCF LAB WORK CHCF LABWORK LABWORK CHCF LAB WORK LABWORK CHCF LABWORK LABWORK LABWORK LABWORK CHCF LAB WORK CHCF LAB WORK CHCF LABWORK CHCF LABWORK CHCF LAB WORK LABWORK Chief Complaint CHCF LABWORK CHCF LAB WORK CHCF LABWORK LABWORK CHCF LAB WORK LABWORK CHCF LABWORK LABWORK LABWORK LABWORK CHCF LAB WORK CHCF LAB WORK CHCF LABWORK CHCF LABWORK CHCF LAB WORK LABWORK CHCF LABWORK Chief Complaint CHCF LABWORK LABWORK CHCF LAB WORK LABWORK CHCF LABWORK LABWORK LABWORK LABWORK CHCF LAB WORK CHCF LAB WORK CHCF LABWORK CHCF LABWORK CHCF LAB WORK LABWORK CHCF LABWORK CHCF LAB WORK Chief Complaint LABWORK CHCF LABWORK LABWORK LABWORK LABWORK CHCF LAB WORK CHCF LAB WORK CHCF LABWORK CHCF LABWORK CHCF LAB WORK LABWORK CHCF LABWORK CHCF LAB WORK CHCF LABWORK CHCF LAB WORK Chief Complaint LABWORK CHCF LABWORK CHCF LAB WORK CHCF LABWORK CHCF LAB WORK CHCF LABWORK CHCF LABWORK CHCF LABWORK CHCF LABWORK CHCF LAB WORK LABWORK LABWORK CHCF LABWORK Chief Complaint CHCF LABWORK CHCF LAB WORK CHCF LABWORK CHCF LABWORK CHCF LABWORK CHCF LABWORK CHCF LAB WORK LABWORK LABWORK CHCF LABWORK LABWORK CHCF LAB WORK CHCF LAB WORK Chief Complaint CHCF LABWORK CHCF LABWORK CHCF LABWORK CHCF LABWORK CHCF LAB WORK LABWORK LABWORK CHCF LABWORK LABWORK CHCF LAB WORK CHCF LAB WORK CHCF LABWORK CHCF LABWORK CHCF LAB WORK CHCF LAB WORK Chief Complaint CHCF LABWORK CHCF LABWORK CHCF LABWORK CHCF LAB WORK LABWORK LABWORK CHCF LABWORK LABWORK CHCF LAB WORK CHCF LAB WORK CHCF LABWORK CHCF LABWORK CHCF LAB WORK CHCF LAB WORK Chief Complaint CHCF LABWORK CHCF LABWORK CHCF LABWORK CHCF LAB WORK LABWORK LABWORK CHCF LABWORK LABWORK CHCF LAB WORK CHCF LAB WORK CHCF LABWORK CHCF LABWORK CHCF LAB WORK CHCF LAB WORK CHCF LABWORK LABWORK Chief Complaint CHCF LAB WOR K LABWORK LABWORK CHCF LABWORK LABWORK CHCF LAB WORK CHCF LAB WORK CHCF LABWORK CHCF LABWORK CHCF LAB WORK CHCF LAB WORK CHCF LABWORK LABWORK CHCF LAB WORK LABWORK Chief Complaint CHCF LAB WOR K LABWORK LABWORK CHCF LABWORK LABWORK CHCF LAB WORK CHCF LAB WORK CHCF LABWORK CHCF LABWORK CHCF LAB WORK CHCF LAB WORK CHCF LABWORK LABWORK CHCF LAB WORK LABWORK CHCF LABWORK CHCF LAB WORK Chief Complaint LABWORK LABWORK CHCF LABWORK LABWORK CHCF LAB WORK CHCF LAB WORK CHCF LABWORK CHCF LABWORK CHCF LAB WORK CHCF LAB WORK CHCF LABWORK LABWORK CHCF LAB WORK LABWORK CHCF LABWORK CHCF LAB WORK LABWORK\\ Chief Complaint LABWORK CHCF LABWORK LABWORK CHCF LAB WORK CHCF LAB WORK CHCF LABWORK CHCF LABWORK CHCF LAB WORK CHCF LAB WORK CHCF LABWORK LABWORK CHCF LAB WORK LABWORK CHCF LABWORK CHCF LAB WORK LABWORK\\ LABWORK Chief Complaint CHCF LAB WOR K CHCF LAB WORK CHCF LABWORK CHCF LABWORK CHCF LAB WORK CHCF LAB WORK CHCF LABWORK LABWORK CHCF LAB WORK LABWORK CHCF LABWORK CHCF LAB WORK LABWORK\\ LABWORK CHCF LAB WORK LABWORK Chief Complaint CHCF LAB WOR K CHCF LABWORK CHCF LABWORK CHCF LAB WORK CHCF LAB WORK CHCF LABWORK LABWORK CHCF LAB WORK LABWORK CHCF LABWORK CHCF LAB WORK LABWORK\\ LABWORK CHCF LAB WORK LABWORK LABWORK Chief Complaint CHCF LABWORK CHCF LABWORK CHCF LAB WORK CHCF LAB WORK CHCF LABWORK LABWORK CHCF LAB WORK LABWORK CHCF LABWORK CHCF LAB WORK LABWORK\\ LABWORK CHCF LAB WORK LABWORK CHCF LABWORK LABWORK Chief Complaint CHCF LAB WOR K CHCF LABWORK LABWORK CHCF LAB WORK LABWORK CHCF LABWORK CHCF LAB WORK LABWORK\\ LABWORK CHCF LAB WORK LABWORK CHCF LABWORK LABWORK CHCF LABWORK CHCF LAB WORK LABWORK CHCF LAB WORK Chief Complaint CHCF LABWORK LABWORK CHCF LAB WORK LABWORK CHCF LABWORK CHCF LAB WORK LABWORK\\ LABWORK CHCF LAB WORK LABWORK CHCF LABWORK LABWORK CHCF LABWORK CHCF LAB WORK LABWORK CHCF LAB WORK LABWORK Chief Complaint CHCF LAB WOR K LABWORK CHCF LABWORK CHCF LAB WORK LABWORK\\ LABWORK CHCF LAB WORK LABWORK CHCF LABWORK LABWORK CHCF LABWORK CHCF LAB WORK LABWORK CHCF LAB WORK LABWORK LABWORK Chief Complaint CHCF LAB WOR K LABWORK\\ LABWORK CHCF LAB WORK LABWORK CHCF LABWORK LABWORK CHCF LABWORK CHCF LAB WORK LABWORK CHCF LAB WORK LABWORK LABWORK LABWORK LABWORK LABWORK Chief Complaint LABWORK\\ LABWORK CHCF LAB WORK LABWORK CHCF LABWORK LABWORK CHCF LABWORK CHCF LAB WORK LABWORK CHCF LAB WORK LABWORK LABWORK LABWORK LABWORK LABWORK LABWORK Chief Complaint CHCF LAB WOR K LABWORK CHCF LABWORK LABWORK CHCF LABWORK CHCF LAB WORK LABWORK CHCF LAB WORK LABWORK LABWORK LABWORK LABWORK LABWORK LABWORK LABWORK Chief Complaint CHCF LABWORK LABWORK CHCF LABWORK CHCF LAB WORK LABWORK CHCF LAB WORK LABWORK LABWORK LABWORK LABWORK LABWORK LABWORK LABWORK CHCF LAB WORK LABWORK Chief Complaint LABWORK CHCF LABWORK CHCF LAB WORK LABWORK CHCF LAB WORK LABWORK LABWORK LABWORK LABWORK LABWORK LABWORK LABWORK CHCF LAB WORK LABWORK LABWORK LABWORK Chief Complaint LABWORK CHCF LAB WORK LABWORK LABWORK LABWORK LABWORK LABWORK LABWORK LABWORK CHCF LAB WORK LABWORK LABWORK LABWORK CHCF LAB WORK CHCF LAB WORK Chief Complaint CHCF LAB WOR K LABWORK LABWORK LABWORK LABWORK LABWORK LABWORK LABWORK CHCF LAB WORK LABWORK LABWORK LABWORK CHCF LAB WORK CHCF LAB WORK LABWORK Chief Complaint CHCF LABWORK CHCF LAB WORK CHCF LAB WORK CHCF LABWORK LABWORK CHCF LAB WORK LABWORK CHCF LABWORK CHCF LAB WORK LABWORK\\ LABWORK CHCF LAB WORK LABWORK [facility]CF LABWORK LABWORK CHCF LABWORK Chief Complaint CHCF LABWORK CHCF LAB WORK CHCF LAB WORK CHCF LABWORK LABWORK CHCF LAB WORK LABWORK CHCF LABWORK CHCF LAB WORK LABWORK\\ LABWORK [facility] LAB WORK LABWORK CHCF LABWORK LABWORK CHCF LABWORK CHCF LAB WORK Chief Complaint Admit Date CHCF LAB WORK March 11 5:00am [facility] LAB WORK March 18 5:00am LABWORK March 25, 2024 5:00am LABWORK April 01, 2024 5 :00am [facility] LAB WORK April 08, 2024 5:00am LABWORK April 15, 2024 5:00am LABWORK April 22, 2024 5:00am [facility] LAB WORK April 29 5:00am LABWORK May 06, 2024 5: 00am [facility] LAB WORK May 13, 2024 4:00am LABWORK May 20, 2024 5 :00am [facility] LAB WORK May 27, 2024 5:00am LABWORK June 03, 2024 5 :00am LABWORK June 07, 2024 5 :00am [facility] LAB WORK June 10 5:00am LABWORK June 17, 2024 5:00am [facility] LAB WORK June 24 5:00am Chief Complaint Admit Date LABWORK April 01, 2024 5 :00am [facility] LAB WORK April 08, 2024 5:00am LABWORK April 15, 2024 5:00am LABWORK April 22, 2024 5:00am [facility] LAB WORK April 29 5:00am LABWORK May 06, 2024 5: 00am [facility] LAB WORK May 13, 2024 4:00am LABWORK May 20, 2024 5 :00am [facility] LAB WORK May 27, 2024 5:00am LABWORK June 03, 2024 5 :00am LABWORK June 07, 2024 5 :00am [facility] LAB WORK June 10 5:00am LABWORK June 17, 2024 5:00am [facility] LAB WORK June 24 5:00am [facility] LAB WORK June 27 2:00am [facility] LAB WORK July 01, 2024 4: 00am LABWORK July 08, 2024 5:0 0am [facility] LAB WORK July 16, 2024 4 :00am Chief Complaint Admit Date [facility] LAB WORK April 08, 2024 5:00am LABWORK April 15, 2024 5:00am LABWORK April 22, 2024 5:00am [facility] LAB WORK April 29 5:00am LABWORK May 06, 2024 5: 00am [facility] LAB WORK May 13, 2024 4:00am LABWORK May 20, 2024 5 :00am [facility] LAB WORK May 27, 2024 5:00am LABWORK June 03, 2024 5 :00am LABWORK June 07, 2024 5 :00am [facility] LAB WORK June 10 5:00am LABWORK June 17, 2024 5:00am [facility] LAB WORK June 24 5:00am [facility] LAB WORK June 27 2:00am [facility] LAB WORK July 01, 2024 4: 00am LABWORK July 08, 2024 5:0 0am [facility] LAB WORK July 15, 2024 5 :00am [facility] LAB WORK July 16, 2024 4 :00am Chief Complaint Admit Date LABWORK April 15, 2024 5:00am LABWORK April 22, 2024 5:00am [facility] LAB WORK April 29 5:00am LABWORK May 06, 2024 5: 00am [facility] LAB WORK May 13, 2024 4:00am LABWORK May 20, 2024 5 :00am [facility] LAB WORK May 27, 2024 5:00am LABWORK June 03, 2024 5 :00am LABWORK June 07, 2024 5 :00am [facility] LAB WORK June 10 5:00am LABWORK June 17, 2024 5:00am [facility] LAB WORK June 24 5:00am [facility] LAB WORK June 27 2:00am [facility] LAB WORK July 01, 2024 4: 00am LABWORK July 08, 2024 5:0 0am [facility] LAB WORK July 15, 2024 5 :00am [facility] LAB WORK July 16, 2024 4 :00am [facility] LAB WORK July 22, 2024 5 :00am Chief Complaint Admit Date LABWORK April 22, 2024 5:00am [facility] LAB WORK April 29 5:00am LABWORK May 06, 2024 5: 00am [facility] LAB WORK May 13, 2024 4:00am LABWORK May 20, 2024 5 :00am [facility] LAB WORK May 27, 2024 5:00am LABWORK June 03, 2024 5 :00am LABWORK June 07, 2024 5 :00am [facility] LAB WORK June 10 5:00am LABWORK June 17, 2024 5:00am [facility] LAB WORK June 24 5:00am [facility] LAB WORK June 27 2:00am [facility] LAB WORK July 01, 2024 4: 00am LABWORK July 08, 2024 5:0 0am [facility] LAB WORK July 15, 2024 5 :00am [facility] LAB WORK July 16, 2024 4 :00am [facility] LAB WORK July 22, 2024 5 :00am LABWORK July 29, 2024 5:0 0am Chief Complaint Admit Date [facility] LAB WORK May 13, 2024 4:00am LABWORK May 20, 2024 5 :00am [facility] LAB WORK May 27, 2024 5:00am LABWORK June 03, 2024 5 :00am LABWORK June 07, 2024 5 :00am [facility] LAB WORK June 10 5:00am LABWORK June 17, 2024 5:00am [facility] LAB WORK June 24 5:00am [facility] LAB WORK June 27 2:00am [facility] LAB WORK July 01, 2024 4: 00am LABWORK July 08, 2024 5:0 0am [facility] LAB WORK July 15, 2024 5 :00am [facility] LAB WORK July 16, 2024 4 :00am [facility] LAB WORK July 22, 2024 5 :00am LABWORK July 29, 2024 5:0 0am [facility] LAB WORK August 05, 2024 5: 00am [facility] LAB WORK August 12, 2024 5 :00am Chief Complaint Admit Date LABWORK May 20, 2024 5 :00am [facility] LAB WORK May 27, 2024 5:00am LABWORK June 03, 2024 5 :00am LABWORK June 07, 2024 5 :00am [facility] LAB WORK June 10 5:00am LABWORK June 17, 2024 5:00am [facility] LAB WORK June 24 5:00am [facility] LAB WORK June 27 2:00am [facility] LAB WORK July 01, 2024 4: 00am LABWORK July 08, 2024 5:0 0am [facility] LAB WORK July 15, 2024 5 :00am [facility] LAB WORK July 16, 2024 4 :00am [facility] LAB WORK July 22, 2024 5 :00am LABWORK July 29, 2024 5:0 0am [facility] LAB WORK August 05, 2024 5: 00am [facility] LAB WORK August 12, 2024 5 :00am LABWORK August 26, 2024 5:0 0am Chief Complaint Admit Date LABWORK June 03, 2024 5 :00am LABWORK June 07, 2024 5 :00am [facility] LAB WORK June 10 5:00am LABWORK June 17, 2024 5:00am [facility] LAB WORK June 24 5:00am [facility] LAB WORK June 27 2:00am [facility] LAB WORK July 01, 2024 4: 00am LABWORK July 08, 2024 5:0 0am [facility] LAB WORK July 15, 2024 5 :00am [facility] LAB WORK July 16, 2024 4 :00am [facility] LAB WORK July 22, 2024 5 :00am LABWORK July 29, 2024 5:0 0am [facility] LAB WORK August 05, 2024 5: 00am [facility] LAB WORK August 12, 2024 5 :00am [facility] LAB WORK August 19, 2024 4 :00am [facility] LAB WORK August 23, 2024 5 :00am LABWORK August 26, 2024 5:0 0am LABWORK September 09, 2024 5:00a m Chief Complaint Admit Date LABWORK June 07, 2024 5 :00am [facility] LAB WORK June 10 5:00am LABWORK June 17, 2024 5:00am [facility] LAB WORK June 24 5:00am [facility] LAB WORK June 27 2:00am [facility] LAB WORK July 01, 2024 4: 00am LABWORK July 08, 2024 5:0 0am [facility] LAB WORK July 15, 2024 5 :00am [facility] LAB WORK July 16, 2024 4 :00am [facility] LAB WORK July 22, 2024 5 :00am LABWORK July 29, 2024 5:0 0am [facility] LAB WORK August 05, 2024 5: 00am [facility] LAB WORK August 12, 2024 5 :00am [facility] LAB WORK August 19, 2024 4 :00am [facility] LAB WORK August 23, 2024 5 :00am LABWORK August 26, 2024 5:0 0am [facility] LAB WORK September 02, 2024 4:00 am LABWORK September 09, 2024 5:00a m LABWORK September 11, 2024 5:00a m Chief Complaint Admit Date [facility] LAB WORK July 01, 2024 4: 00am LABWORK July 08, 2024 5:0 0am [facility] LAB WORK July 15, 2024 5 :00am [facility] LAB WORK July 16, 2024 4 :00am [facility] LAB WORK July 22, 2024 5 :00am LABWORK July 29, 2024 5:0 0am [facility] LAB WORK August 05, 2024 5: 00am [facility] LAB WORK August 12, 2024 5 :00am [facility] LAB WORK August 19, 2024 4 :00am [facility] LAB WORK August 23, 2024 5 :00am LABWORK August 26, 2024 5:0 0am [facility] LAB WORK September 02, 2024 4:00 am LABWORK September 09, 2024 5:00a m LABWORK September 11, 2024 5:00a m [facility] LAB WORK September 16, 2024 5:0 0am [facility] LAB WORK September 24, 2024 4:0 0am Chief Complaint Admit Date [facility] LAB WORK August 05, 2024 5: 00am [facility] LAB WORK August 12, 2024 5 :00am [facility] LAB WORK August 19, 2024 4 :00am [facility] LAB WORK August 23, 2024 5 :00am LABWORK August 26, 2024 5:0 0am [facility] LAB WORK September 02, 2024 4:00 am LABWORK September 09, 2024 5:00a m LABWORK September 11, 2024 5:00a m [facility] LAB WORK September 16, 2024 5:0 0am [facility] LAB WORK September 24, 2024 4:0 0am LABWORK September 30, 2024 5:00a m LABWORK October 07, 2024 5:00a m [facility] LAB WORK October 14, 2024 4: 00am [facility] LAB WORK October 21, 2024 4: 00am LABWORK October 28, 2024 5:00 am [facility] LAB WORK November 04, 2024 4:0 0am [facility] LAB WORK November 11, 2024 5: 00am [...] SHS DATE CREATED AUTHOR AUTHOR'S ORGANIZ ATION 02/10/2025 [facility] Source Comments (unrecognize d section and content) In the event this informatio n is protected by the Federal Confidentiality of Alcohol and Drug Abuse Patient Records regulations: The Federal rules restrict any use of the information to criminally investigate or prosecute any alcohol or drug abuse patient.[facility] Reason for Visit (unrecogniz ed section [...] Pearl, KUSHAL)1458 (New Bag - Provider: Tra Pearl RN)2207 (Stopped - Provider: Nancy Solorio RN)2244 (New Bag - Provider: Nancy Solorio, KUSHAL) 0401 (Stopped - Provider: Nancy Solorio, KUSHAL)0639 (New Bag - Provider: Nancy Solorio, KUSHAL)1140 (Stopped - Provider: Jovana Armstrong RN)1448 (New Bag - Provider: Jovana Armstrong RN)1935 (Stopped - Provider: Nancy Solorio RN)214 (New Bag - Provider: Nancy Solorio RN) [...] RN) 09 (Given - Provider: Sandeep Thompson, KUSHAL)2100 (Due) docusate (COLACE) 50 MG/5ML liquid 100 mg 100 mg, Per NG tube, 2 TIMES DAILY, First dose on Mon03/19/21 at 2323 0754 (Given - Provider: Tra Pearl RN)2205 (Given - Provider: Nancy Solorio RN) 0921 (Given - Provider: Jovana Armstrong RN)2148 (Given - Provider: Nancy Solorio RN) 09 (Given - Provider: Sandeep Thompson RN)2100 (Due) enoxaparin (LOVENOX) injection 30 mg 30 mg, SubCUTAneous, 2 TIMES DAILY, First dose on Mon03/19/21 at 2323, Pharmacy to dose if renal insufficiency present. 0753 (Given - Provider: Tra Pearl RN)2207 (Given - Provider: Nancy Solorio RN) 0940 (Given - Provider: Jovana Armstrong, RN)2149 (Given - Provider: Nancy Solorio RN) 0914 [...] Cabrera RCP)2037 (Given - Provider: Perla Loyola RCP) 1020 (Given - Provider: Gabriel Soares COMPUTER VIDEO GAME DESIGNER)1200 (Due)1600 (Due)2000 (Due) lansoprazole (PREVACID SOLUTAB) disintegrating [...] Francesca Cortez RN)1458 (Given - Provider: Tra Pearl, KUSHAL) 0405 (Given - Provider: Nancy Solorio RN)1448 [...] Provider: Amelie Taylor RCP)2215 (Given - Provider: JANET ElliottP) 0841 (Given - Provider: Ana Cabrera RCP)2051 [...] 20 mL/lumen 0755 (Given - Provider: Tra eParl RN)2206 (Given - Provider: Nancy Solorio, KUSHAL) 1055 (Given - Provider: Jovana Armstrong, KUSHAL)2150 (Given - Provider: Nancy Solorio, RN) 0918 (Given - Provider: Sandeep Thompson, RN)2100 (Due) tamsulosin (FLOMAX) capsule 0.4 mg [...] Status Dates Renard Burgos Attending Provider Active Advanced Practice Registered Nurse Relationship Specialty Start Date End Date Renard Burgos [address] [place] [phone] PCP - General Internal Medicine 10/16/23 Advanced Practice Registered Nurse Relationship Specialty Start Date End Date Renard Burgos [address] [place] [phone] PCP - General Internal Medicine 10/16/23 Advanced Practice Registered Nurse Relationship Specialty Start Date End Date Renard Burgos [address] [place] [phone] PCP - General Internal Medicine 10/16/23 Advanced Practice Registered Nurse Relationship Specialty Start Date End Date Renard Burgos [address] [place] [phone] PCP - General Internal Medicine 10/16/23 Team [...] Team Status: Active Member Role Status Dates Renrad GARLAND Attending Provider Active Sta rt: July [...] Provider Active Sta rt: September 09, 2024 Advanced Practice Registered Nurse Relationship Specialty Start Date End Date Renard Burgos [address] [facility] [address] [place] [phone] PCP - General Internal Medicine 10/16/23 Team [...] BE BASED ON THE PRIMARY CLINICAL RECORDS. [facility]. provides no warranty or guarantee of the accuracy or completeness of information in this document.
[2025-02-17 08:04] LABS: Hematocrit 43.6 % (40-54); Hemoglobin 14.2 g/dL (13.0-16.5); Immature Granulocytes Count 0.030 X10^3/uL (0.0-0.0); Mean Corp Hgb Conc 32.6 g/dL (32-36); Mean Corpuscular Volume 93.4 fL (80-94); Mean Platelet Vol. 11.3 fl (6.2-12.0); NRBC Flagged by Analyzer 0 % (0-5); Platelet Count 197 K/mm3 (150-450); RBC Distribution Width CV 13.8 % (11.6-14.6); RBC Distribution Width SD 47.2 fl (35.1-43.9); Red Blood Count 4.67 M/mm3 (4.6-6.2); White Blood Count 8.9 K/mm3 (4.4-11.0)
== END ==
LOC: OLS.SANC 05:00
PROVIDERS: Visit Provider Internal Medicine
DX: Z79.899 Other long term (current) drug therapy (principal)
CPT/HCPCS: 36415; 85025

== ENCOUNTER → 2025-02-21 05:00 | Outpatient (REF) | payer MEDICAID, SELFPAY ==
--- OUTSIDE RECORDS SUMMARY | 2025-02-21 04:38 | XMS RPT_ITS | CCD ---
Author Organization [facility] Care Team Providers Care Bacteriology Teacher Name Role Phone JORDAN OREILLY Attending Unavailable PROVIDER, UNKNOWN Referring Unavailable Nathanael Cazares Primary Care Unavailable PROVIDER, UNKNOWN Referring Unavailable Nathanael Cazares Primary Care Unavailable Jaime Lindquist Attending Unavailable Unavailable Primary Care Provider UnavailBethany Navarrete Primary Care Provider [phone] Jarvis Kendall MD Unavailable [phone] Bethany Russell MD Primary Care Provider [phone] Unavailable Primary Care Provider Unavailclifton Latif MD, [...] Referring Unavailable Katsaros OLS, Renard Attending Unavailable Loretta [...] Jackson Primary Care Unavailable Loretta GARLAND, Renard Referring Unavailable Loretta GARLAND, Renard Attending Unavailable Loretta GARLAND, Renard Attending Unavailable Medications Current Medications Medication Drug Class(es) Dates Sig (Normalized) Sig (Original) Acetaminophen (18 sources) Start: 03-20-2021 acetaminophen (TYLENOL) tablet 650 mg Start: 05-22-2019 ACETAMINOPHEN 325 MG TABS 2 tablet via peg tube as needed ACETAMINOPHEN [id number] [facility] albuterol 0.83 mg/ml inhalation solution (1 source) beta2-Adrenergic Agonist Start: 03-19-2021 albut veronica (PROVENTIL) nebulizer solution 2.5 mg albuterol 0.833 mg/ml / ipratropium bromide 0.167 mg/ml inhalation solution (18 sources) Anticholinergic, beta2-Adrenergic Agonist Start: 03-20-2021 ipratropium-alb utero l (DUONEB) nebulizer solution 1 ampule Start: 05-22-2019 IPRATROPIUM-AL BUTEROL 0.5-2.5 (3) MG/3ML SOLN 3ml via nebulizer every 4 hours as needed IPRATROPIUM-ALBUTEROL [id number] Ana Diesch [employer] Start: 08-22-2018 take 3 mL by inhalat ion every four hours ipratropium-albuterol (DUONEB) 0.5-2.5 (3) MG/3ML SOLN nebulizer solution Inhale 3 mLs into the lungs every 4 hours 360 mL 0 08/22/2018 Active aspirin 81 mg chewable tablet (9 sources) Platelet Aggregation Inhibitor, Nonsteroidal Anti-inflammatory Drug Start: 05-22-2019 ASPIRIN ADULT LOW STRENGTH 81 MG CHEW one tablet via peg tube daily ASPIRIN [id number] [facility] Start: 08-23-2018 aspirin 81 MG chewable tablet 1 tablet by Per NG tube route daily 30 tablet 3 08/23/2018 Active atorvastatin 40 mg oral tablet (9 sources) HMG-CoA Reductase Inhibitor Start: 05-22-2019 ATORVASTATIN CALCIUM 40 MG TABS one tablet via peg tube daily ATORVASTATIN CALCIUM [id number] [facility] Start: 08-22-2018 atorvastatin ( LIPITOR) 40 MG tablet 1 tablet by Per NG tube route nightly 30 tablet 3 08/22/2018 Active castor oil 0.788 mg/mg / estonian balsam 0.087 mg/mg topical ointment (7 sources) Standardized Chemical Allergen Start: 08-22-2018 Balsam [place] O il (VENELEX) OINT ointment Apply topically [...] 250mg via peg tube twice daily CLOZAPINE [id number] [facility] Start: 08-22-2018 cloZAPine (AILYN ZARIL) [...] via peg tube twice daily DOCUSATE SODIUM [id number] Ana Stevenson [facility] Start: 08-22-2018 docusate (COLA CE) 50 MG/5ML liquid 10 mLs by Per NG tube route 2 times daily 0 08/22/2018 Active take 1 capsule by [facility] twice daily docusate sodium (Colace) [...] one tablet via peg tube nightly MELATONIN [id number] Ana [facility] Start: 08-22-2018 melatonin 3 MG TABS tablet [...] needed. 0 08/23/2018 Active polyethylene glycol 3350 34691 mg powder for oral solution (1 source) [...] Sig (Normalized) Sig (Original) barium sulfate (Varibar [place], Varibar Honey) 40 % suspension 5 mL [...] SUPP every 24 hours as needed BISACODYL [id number] Ana Diesch [employer] Start: 05-22-2019 BISACODYL EC 5 MG TBEC one tablet via peg tube daily as needed BISACODYL [id number] Ana Diesch [employer] chlorhexidine gluconate 1.2 mg/ml mouthwash (10 sources) Start: 05-22-2019 PERIDEX 0.12 % SOLN 15ml twice daily CHLORHEXIDINE GLUCONATE [id number] Ana Stevenson LPN chlorhexidine (P eridex) 0.12 % solution Use 15 mL in the mouth or throat if needed for wound care. Active cholecalciferol 1000 unt oral tablet (16 sources) Vitamin D Start: 05-22-2019 VITAMIN D3 25 MCG (1000 UT) TABS one tablet via peg tube daily CHOLECALCIFEROL [id number] Ana Stevenson LPN cholecalciferol (SM Vitamin D3) 25 MCG (1000 UT) tablet Take 1,000 Units by mouth daily. Active dextromethorphan hydrobromide 2 mg/ml / guaiFENesin 20 mg/ml oral solution (1 source) Uncompetitive A-bmmqpy-R-aspartate Receptor Antagonist, Sigma-1 Agonist Start: 05-22-2019 ROBITUSSIN PEAK COLD DM SYRP 5ml via peg tube every 4 hours as needed for cough DEXTROMETHORPHAN-GUAIFENESIN SYRP [id number] Ana Stevenson LPN magnesium hydroxide 240 mg/ml oral suspension (1 source) Start: 05-22-2019 MILK OF MAGNESIA CONCENTRATE SUSP 30ml via peg tube every 24 hours MAGNESIUM HYDROXIDE SUSP [id number] Ana Stevenson LPN methylPREDNISolone 40 mg injection (2 sources) Corticosteroid Start: 03-20-2021 End: 03-24-2021 methylPREDNISolone sodium (SOLU-MEDROL) injection 40 mg MULTIPLE VITAMINS-MINERALS (1 source) Start: 05-22-2019 MENS MULTIVITAMIN TABS one tablet via peg tube daily MULTIPLE VITAMINS-MINERALS [id number] Ana Stevenson LPN POLYETHYLENE GLYCOL 1450 (1 source) Start: 05-22-2019 POLYETHYLENE GLYCOL 1450 POW D 17 grams via peg tube twice daily POLYETHYLENE GLYCOL 1450 [id number] Ana Stevenson LPN SENNOSIDES-DOCUSATE SODIUM (1 source) Start: 05-22-2019 SENNA PLUS 8.6-50 MG TABS on e tablet via peg tube daily SENNOSIDES-DOCUSATE SODIUM [id number] Ana Stevenson LPN 50 ml sodium chloride [...] Onset: 9 07-11-2018 Other aftercare (2 sources) [facility] (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; Translations: [manager body (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] Onset: 9 Episodic Other aftercare (2 sources) Other reprint sorter (current) drug therapy; Translations: [Other skilled nursing (current) drug therapy] Onset: 5 Episodic Other [...] 9 07-23-2018 Episodic Other aftercare (1 source) [facility] (current) use of antibiotics; Translations: [[facility] (current) use of antibiotics] Onset: 5 Episodic Other aftercare (1 source) manager body (current) use of 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; Translations: [manager body (current) use of 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] Onset: 5 Episodic [...] Interpretation Reference Range Facility CBC W/Diff, Automatedon 10-2 Absolute Lymph 2.31 X10 3/uL Normal 0.83-4.51 [facility] Comment on above: Order Comment: 109.1 Performed By: #### L 100.0100 ####[facility] [address] [place], [address] Absolute Neut 5.5 X10 3/uL Normal 2.0-7.7 [facility] Comment on above: Order Comment: 109.1 Performed By: #### L 100.0100 ####[facility] [address] [place], [address] Basophils/100 WBC (Bld) 0.6 % Normal 0-1 [facility] Comment on above: Order Comment: 109.1 Performed By: #### L 100.0100 ####[facility] [address] [place], [address] Eosinophils/100 WBC (Bld) 0.9 % Normal 0-5 [facility] Comment on above: Order Comment: 109.1 Performed By: #### L 100.0100 ####[facility] [address] [place], [address] Erythrocyte distribution width (RBC) [Ratio] 13.8 % Normal 11.6-14.6 [facility] Comment on above: Order Comment: 109.1 Performed By: #### L 100.0100 ####[facility] [address] [place], [address] Hematocrit (Bld) [Volume fraction] 43.6 % Normal 40-54 [facility] Comment on above: Order Comment: 109.1 Performed By: #### L 100.0100 ####[facility] [address] [place], [address] Hemoglobin (Bld) [Mass/Vol] 14.2 g/dL Normal 13.0-16.5 [facility] Comment on above: Order Comment: 109.1 Performed By: #### L 100.0100 ####[facility] [address] [place], [address] IG% 0.300 Normal 0.0-0.9 [facility] Comment on above: Order Comment: 109.1 Result Comment: IG% - Immature Granulocytes (promyelocytes, myelocytes andmetamyelocytes) > 1% indicates that a LEFT SHIFT is Present. Performed By: #### L 100.0100 ####[facility] [address] [place], [address] Lymphocytes/100 WBC (Bld) 26.1 % Normal 19-41 [facility] Comment on above: Order Comment: 109.1 Performed By: #### L 100.0100 ####[facility] [address] [place], [address] MCH (RBC) [Entitic mass] 30.4 pg Normal 27.0-32.0 [facility] Comment on above: Order Comment: 109.1 Performed By: #### L 100.0100 ####[facility] [address] [place], [address] MCHC (RBC) [Mass/Vol] 32.6 g/dL Normal 32-36 [facility] Comment on above: Order Comment: 109.1 Performed By: #### L 100.0100 ####[facility] [address] [place], [address] MCV (RBC) [Entitic vol] 93.4 fL Normal 80-94 [facility] Comment on above: Order Comment: 109.1 Performed By: #### L 100.0100 ####[facility] [address] [place], [address] Monocytes/100 WBC (Bld) 10.4 % High 0-10 [facility] Comment on above: Order Comment: 109.1 Performed By: #### L 100.0100 ####[facility] [address] [place], [address] Neutrophils/100 WBC (Bld) 61.7 % Normal 47-70 [facility] Comment on above: Order Comment: 109.1 Performed By: #### L 100.0100 ####[facility] [address] [place], [address] Nucleated RBC (Bld) [#/Vol] 0 10*3/uL Normal 0-5 [facility] Comment on above: Order Comment: 109.1 Performed By: #### L 100.0100 ####[facility] [address] [place], [address] Platelet mean volume (Bld) [Entitic vol] 11.3 fL Normal 6.2-12.0 [facility] Comment on above: Order Comment: 109.1 Performed By: #### L 100.0100 ####[facility] [address] [place], [address] Platelets (Bld) [#/Vol] 197 10*3/uL Normal 150-450 [facility] Comment on above: Order Comment: 109.1 Performed By: #### L 100.0100 ####[facility] [address] [place], [address] RBC (Bld) [#/Vol] 4.67 10*6/uL Normal 4.6-6.2 [facility] Comment on above: Order Comment: 109.1 Performed By: #### L 100.0100 ####[facility] [address] [place], [address] RDW SD 47.2 fl High 35.1-43.9 [facility] Comment on above: Order Comment: 109.1 Performed By: #### L 100.0100 ####[facility] [address] [place], [address] WBC (Bld) [#/Vol] 8.9 10*3/uL Normal 4.4-11.0 [facility] Comment on above: Order Comment: 109.1 Performed By: #### L 100.0100 ####[facility] [address] [place], [address] CBC W/Diff, Automatedon 10- Absolute Lymph 2.53 X10 3/uL Normal 0.83-4.51 [facility] Comment on above: Order Comment: 109 Performed By: #### L 100.0100 ####[facility] [address] [place], [address] Absolute Neut 5.5 X10 3/uL Normal 2.0-7.7 [facility] Comment on above: Order Comment: 109 Performed By: #### L 100.0100 ####[facility] [address] [place], [address] Basophils/100 WBC (Bld) 0.7 % Normal 0-1 [facility] Comment on above: Order Comment: 109 Performed By: #### L 100.0100 ####[facility] [address] [place], [address] Eosinophils/100 WBC (Bld) 0.8 % Normal 0-5 [facility] Comment on above: Order Comment: 109 Performed By: #### L 100.0100 ####[facility] [address] [place], [address] Erythrocyte distribution width (RBC) [Ratio] 13.6 % Normal 11.6-14.6 [facility] Comment on above: Order Comment: 109 Performed By: #### L 100.0100 ####[facility] [address] [place], [address] Hematocrit (Bld) [Volume fraction] 43.9 % Normal 40-54 [facility] Comment on above: Order Comment: 109 Performed By: #### L 100.0100 ####[facility] [address] [place], [address] Hemoglobin (Bld) [Mass/Vol] 14.2 g/dL Normal 13.0-16.5 [facility] Comment on above: Order Comment: 109 Performed By: #### L 100.0100 ####[facility] [address] [place], [address] IG% 0.300 Normal 0.0-0.9 [facility] Comment on above: Order Comment: 109 Result Comment: IG% - Immature Granulocytes (promyelocytes, myelocytes andmetamyelocytes) > 1% indicates that a LEFT SHIFT is Present. Performed By: #### L 100.0100 ####[facility] [address] [place], [address] Lymphocytes/100 WBC (Bld) 28.0 % Normal 19-41 [facility] Comment on above: Order Comment: 109 Performed By: #### L 100.0100 ####[facility] [address] [place], [address] MCH (RBC) [Entitic mass] 29.6 pg Normal 27.0-32.0 [facility] Comment on above: Order Comment: 109 Performed By: #### L 100.0100 ####[facility] [address] [place], [address] MCHC (RBC) [Mass/Vol] 32.3 g/dL Normal 32-36 [facility] Comment on above: Order Comment: 109 Performed By: #### L 100.0100 ####[facility] [address] [place], [address] MCV (RBC) [Entitic vol] 91.6 fL Normal 80-94 [facility] Comment on above: Order Comment: 109 Performed By: #### L 100.0100 ####[facility] [address] [place], [address] Monocytes/100 WBC (Bld) 8.9 % Normal 0-10 [facility] Comment on above: Order Comment: 109 Performed By: #### L 100.0100 ####[facility] [address] [place], [address] Neutrophils/100 WBC (Bld) 61.3 % Normal 47-70 [facility] Comment on above: Order Comment: 109 Performed By: #### L 100.0100 ####[facility] [address] [place], [address] Nucleated RBC (Bld) [#/Vol] 0 10*3/uL Normal 0-5 [facility] Comment on above: Order Comment: 109 Performed By: #### L 100.0100 ####[facility] [address] [place], [address] Platelet mean volume (Bld) [Entitic vol] 11.3 fL Normal 6.2-12.0 [facility] Comment on above: Order Comment: 109 Performed By: #### L 100.0100 ####[facility] [address] [place], [address] Platelets (Bld) [#/Vol] 217 10*3/uL Normal 150-450 [facility] Comment on above: Order Comment: 109 Performed By: #### L 100.0100 ####[facility] [address] [place], [address] RBC (Bld) [#/Vol] 4.79 10*6/uL Normal 4.6-6.2 [facility] Comment on above: Order Comment: 109 Performed By: #### L 100.0100 ####[facility] [address] [place], [address] RDW SD 45.8 fl High 35.1-43.9 [facility] Comment on above: Order Comment: 109 Performed By: #### L 100.0100 ####[facility] [address] [place], [address] WBC (Bld) [#/Vol] 9.0 10*3/uL Normal 4.4-11.0 [facility] Comment on above: Order Comment: 109 Performed By: #### L 100.0100 ####[facility] [address] [place], [address] CBC W/Diff, Automatedon 10-0 Absolute Lymph 2.12 X10 3/uL Normal 0.83-4.51 [facility] Comment on above: Order Comment: 109.1 Performed By: #### L 100.0100 ####[facility] [address] [place], [address] Absolute Neut 6.0 X10 3/uL Normal 2.0-7.7 [facility] Comment on above: Order Comment: 109.1 Performed By: #### L 100.0100 ####[facility] [address] [place], [address] Basophils/100 WBC (Bld) 0.5 % Normal 0-1 [facility] Comment on above: Order Comment: 109.1 Performed By: #### L 100.0100 ####[facility] [address] [place], [address] Eosinophils/100 WBC (Bld) 0.8 % Normal 0-5 [facility] Comment on above: Order Comment: 109.1 Performed By: #### L 100.0100 ####[facility] [address] [place], [address] Erythrocyte distribution width (RBC) [Ratio] 13.2 % Normal 11.6-14.6 [facility] Comment on above: Order Comment: 109.1 Performed By: #### L 100.0100 ####[facility] [address] [place], [address] Hematocrit (Bld) [Volume fraction] 40.1 % Normal 40-54 [facility] Comment on above: Order Comment: 109.1 Performed By: #### L 100.0100 ####[facility] [address] [place], [address] Hemoglobin (Bld) [Mass/Vol] 13.4 g/dL Normal 13.0-16.5 [facility] Comment on above: Order Comment: 109.1 Performed By: #### L 100.0100 ####[facility] [address] [place], [address] IG% 0.400 Normal 0.0-0.9 [facility] Comment on above: Order Comment: 109.1 Result Comment: IG% - Immature Granulocytes (promyelocytes, myelocytes andmetamyelocytes) > 1% indicates that a LEFT SHIFT is Present. Performed By: #### L 100.0100 ####[facility] [address] [place], [address] Lymphocytes/100 WBC (Bld) 22.9 % Normal 19-41 [facility] Comment on above: Order Comment: 109.1 Performed By: #### L 100.0100 ####[facility] [address] [place], [address] MCH (RBC) [Entitic mass] 29.9 pg Normal 27.0-32.0 [facility] Comment on above: Order Comment: 109.1 Performed By: #### L 100.0100 ####[facility] [address] [place], [address] MCHC (RBC) [Mass/Vol] 33.4 g/dL Normal 32-36 [facility] Comment on above: Order Comment: 109.1 Performed By: #### L 100.0100 ####[facility] [address] [place], [address] MCV (RBC) [Entitic vol] 89.5 fL Normal 80-94 [facility] Comment on above: Order Comment: 109.1 Performed By: #### L 100.0100 ####[facility] [address] [place], [address] Monocytes/100 WBC (Bld) 10.8 % High 0-10 [facility] Comment on above: Order Comment: 109.1 Performed By: #### L 100.0100 ####[facility] [address] [place], [address] Neutrophils/100 WBC (Bld) 64.6 % Normal 47-70 [facility] Comment on above: Order Comment: 109.1 Performed By: #### L 100.0100 ####[facility] [address] [place], [address] Nucleated RBC (Bld) [#/Vol] 0 10*3/uL Normal 0-5 [facility] Comment on above: Order Comment: 109.1 Performed By: #### L 100.0100 ####[facility] [address] [place], [address] Platelet mean volume (Bld) [Entitic vol] 11.0 fL Normal 6.2-12.0 [facility] Comment on above: Order Comment: 109.1 Performed By: #### L 100.0100 ####[facility] [address] [place], [address] Platelets (Bld) [#/Vol] 243 10*3/uL Normal 150-450 [facility] Comment on above: Order Comment: 109.1 Performed By: #### L 100.0100 ####[facility] [address] [place], [address] RBC (Bld) [#/Vol] 4.48 10*6/uL Low 4.6-6.2 [facility] Comment on above: Order Comment: 109.1 Performed By: #### L 100.0100 ####[facility] [address] [place], [address] RDW SD 43.0 fl Normal 35.1-43.9 [facility] Comment on above: Order Comment: 109.1 Performed By: #### L 100.0100 ####[facility] [address] [place], [address] WBC (Bld) [#/Vol] 9.3 10*3/uL Normal 4.4-11.0 [facility] Comment on above: Order Comment: 109.1 Performed By: #### L 100.0100 ####[facility] [address] [place], [address] CBC W/Diff, Automatedon 09-2 Absolute Lymph 2.19 X10 3/uL Normal 0.83-4.51 [facility] Comment on above: Order Comment: 109.1 Performed By: #### L 100.0100 ####[facility] [address] [place], [address] Absolute Neut 6.3 X10 3/uL Normal 2.0-7.7 [facility] Comment on above: Order Comment: 109.1 Performed By: #### L 100.0100 ####[facility] [address] [place], [address] Basophils/100 WBC (Bld) 0.3 % Normal 0-1 [facility] Comment on above: Order Comment: 109.1 Performed By: #### L 100.0100 ####[facility] [address] [place], [address] Eosinophils/100 WBC (Bld) 0.6 % Normal 0-5 [facility] Comment on above: Order Comment: 109.1 Performed By: #### L 100.0100 ####[facility] [address] [place], [address] Erythrocyte distribution width (RBC) [Ratio] 13.3 % Normal 11.6-14.6 [facility] Comment on above: Order Comment: 109.1 Performed By: #### L 100.0100 ####[facility] [address] [place], [address] Hematocrit (Bld) [Volume fraction] 38.2 % Low 40-54 [facility] Comment on above: Order Comment: 109.1 Performed By: #### L 100.0100 ####[facility] [address] [place], [address] Hemoglobin (Bld) [Mass/Vol] 12.9 g/dL Low 13.0-16.5 [facility] Comment on above: Order Comment: 109.1 Performed By: #### L 100.0100 ####[facility] [address] [place], [address] IG% 0.400 Normal 0.0-0.9 [facility] Comment on above: Order Comment: 109.1 Result Comment: IG% - Immature Granulocytes (promyelocytes, myelocytes andmetamyelocytes) > 1% indicates that a LEFT SHIFT is Present. Performed By: #### L 100.0100 ####[facility] [address] [place], [address] Lymphocytes/100 WBC (Bld) 23.7 % Normal 19-41 [facility] Comment on above: Order Comment: 109.1 Performed By: #### L 100.0100 ####[facility] [address] [place], [address] MCH (RBC) [Entitic mass] 30.2 pg Normal 27.0-32.0 [facility] Comment on above: Order Comment: 109.1 Performed By: #### L 100.0100 ####[facility] [address] [place], [address] MCHC (RBC) [Mass/Vol] 33.8 g/dL Normal 32-36 [facility] Comment on above: Order Comment: 109.1 Performed By: #### L 100.0100 ####[facility] [address] [place], [address] MCV (RBC) [Entitic vol] 89.5 fL Normal 80-94 [facility] Comment on above: Order Comment: 109.1 Performed By: #### L 100.0100 ####[facility] [address] [place], [address] Monocytes/100 WBC (Bld) 6.8 % Normal 0-10 [facility] Comment on above: Order Comment: 109.1 Performed By: #### L 100.0100 ####[facility] [address] [place], [address] Neutrophils/100 WBC (Bld) 68.2 % Normal 47-70 [facility] Comment on above: Order Comment: 109.1 Performed By: #### L 100.0100 ####[facility] [address] [place], [address] Nucleated RBC (Bld) [#/Vol] 0 10*3/uL Normal 0-5 [facility] Comment on above: Order Comment: 109.1 Performed By: #### L 100.0100 ####[facility] [address] [place], [address] Platelet mean volume (Bld) [Entitic vol] 10.6 fL Normal 6.2-12.0 [facility] Comment on above: Order Comment: 109.1 Performed By: #### L 100.0100 ####[facility] [address] [place], [address] Platelets (Bld) [#/Vol] 247 10*3/uL Normal 150-450 [facility] Comment on above: Order Comment: 109.1 Performed By: #### L 100.0100 ####[facility] [address] [place], [address] RBC (Bld) [#/Vol] 4.27 10*6/uL Low 4.6-6.2 [facility] Comment on above: Order Comment: 109.1 Performed By: #### L 100.0100 ####[facility] [address] [place], [address] RDW SD 43.2 fl Normal 35.1-43.9 [facility] Comment on above: Order Comment: 109.1 Performed By: #### L 100.0100 ####[facility] [address] [place], [address] WBC (Bld) [#/Vol] 9.3 10*3/uL Normal 4.4-11.0 [facility] Comment on above: Order Comment: 109.1 Performed By: #### L 100.0100 ####[facility] [address] [place], [address] CBC W/Diff, Automatedon 12-31-2024 Absolute Lymph 2.11 X10 3/uL Normal 0.83-4.51 [facility] Comment on above: Order Comment: 109.1 Performed By: #### L 100.0100 ####[facility] [address] [place], [address] Absolute Neut 4.5 X10 3/uL Normal 2.0-7.7 [facility] Comment on above: Order Comment: 109.1 Performed By: #### L 100.0100 ####[facility] [address] [place], [address] Basophils/100 WBC (Bld) 0.5 % Normal 0-1 [facility] Comment on above: Order Comment: 109.1 Performed By: #### L 100.0100 ####[facility] [address] [place], [address] Eosinophils/100 WBC (Bld) 1.1 % Normal 0-5 [facility] Comment on above: Order Comment: 109.1 Performed By: #### L 100.0100 ####[facility] [address] [place], [address] Erythrocyte distribution width (RBC) [Ratio] 13.1 % Normal 11.6-14.6 [facility] Comment on above: Order Comment: 109.1 Performed By: #### L 100.0100 ####[facility] [address] [place], [address] Hematocrit (Bld) [Volume fraction] 36.3 % Low 40-54 [facility] Comment on above: Order Comment: 109.1 Performed By: #### L 100.0100 ####[facility] [address] [place], [address] Hemoglobin (Bld) [Mass/Vol] 11.6 g/dL Low 13.0-16.5 [facility] Comment on above: Order Comment: 109.1 Performed By: #### L 100.0100 ####[facility] [address] [place], [address] IG% 0.700 Normal 0.0-0.9 [facility] Comment on above: Order Comment: 109.1 Result Comment: IG% - Immature Granulocytes (promyelocytes, myelocytes andmetamyelocytes) > 1% indicates that a LEFT SHIFT is Present. Performed By: #### L 100.0100 ####[facility] [address] [place], [address] Lymphocytes/100 WBC (Bld) 27.9 % Normal 19-41 [facility] Comment on above: Order Comment: 109.1 Performed By: #### L 100.0100 ####[facility] [address] [place], [address] MCH (RBC) [Entitic mass] 29.6 pg Normal 27.0-32.0 [facility] Comment on above: Order Comment: 109.1 Performed By: #### L 100.0100 ####[facility] [address] [place], [address] MCHC (RBC) [Mass/Vol] 32.0 g/dL Normal 32-36 [facility] Comment on above: Order Comment: 109.1 Performed By: #### L 100.0100 ####[facility] [address] [place], [address] MCV (RBC) [Entitic vol] 92.6 fL Normal 80-94 [facility] Comment on above: Order Comment: 109.1 Performed By: #### L 100.0100 ####[facility] [address] [place], [address] Monocytes/100 WBC (Bld) 10.1 % High 0-10 [facility] Comment on above: Order Comment: 109.1 Performed By: #### L 100.0100 ####[facility] [address] [place], [address] Neutrophils/100 WBC (Bld) 59.7 % Normal 47-70 [facility] Comment on above: Order Comment: 109.1 Performed By: #### L 100.0100 ####[facility] [address] [place], [address] Nucleated RBC (Bld) [#/Vol] 0 10*3/uL Normal 0-5 [facility] Comment on above: Order Comment: 109.1 Performed By: #### L 100.0100 ####[facility] [address] [place], [address] Platelet mean volume (Bld) [Entitic vol] 10.6 fL Normal 6.2-12.0 [facility] Comment on above: Order Comment: 109.1 Performed By: #### L 100.0100 ####[facility] [address] [place], [address] Platelets (Bld) [#/Vol] 248 10*3/uL Normal 150-450 [facility] Comment on above: Order Comment: 109.1 Performed By: #### L 100.0100 ####[facility] [address] [place], [address] RBC (Bld) [#/Vol] 3.92 10*6/uL Low 4.6-6.2 [facility] Comment on above: Order Comment: 109.1 Performed By: #### L 100.0100 ####[facility] [address] [place], [address] RDW SD 44.6 fl High 35.1-43.9 [facility] Comment on above: Order Comment: 109.1 Performed By: #### L 100.0100 ####[facility] [address] [place], [address] WBC (Bld) [#/Vol] 7.6 10*3/uL Normal 4.4-11.0 [facility] Comment on above: Order Comment: 109.1 Performed By: #### L 100.0100 ####[facility] [address] [place], [address] CBC W/Diff, Automatedon 09- Absolute Lymph 1.91 X10 3/uL Normal 0.83-4.51 [facility] Comment on above: Order Comment: 109-1 Performed By: #### L 100.0100 ####[facility] [address] [place], [address] Absolute Neut 6.4 X10 3/uL Normal 2.0-7.7 [facility] Comment on above: Order Comment: 109-1 Performed By: #### L 100.0100 ####[facility] [address] [place], [address] Basophils/100 WBC (Bld) 0.5 % Normal 0-1 [facility] Comment on above: Order Comment: 109-1 Performed By: #### L 100.0100 ####[facility] [address] [place], [address] Eosinophils/100 WBC (Bld) 0.8 % Normal 0-5 [facility] Comment on above: Order Comment: 109-1 Performed By: #### L 100.0100 ####[facility] [address] [place], [address] Erythrocyte distribution width (RBC) [Ratio] 13.2 % Normal 11.6-14.6 [facility] Comment on above: Order Comment: 109-1 Performed By: #### L 100.0100 ####[facility] [address] [place], [address] Hematocrit (Bld) [Volume fraction] 40.2 % Normal 40-54 [facility] Comment on above: Order Comment: 109-1 Performed By: #### L 100.0100 ####[facility] [address] [place], [address] Hemoglobin (Bld) [Mass/Vol] 13.3 g/dL Normal 13.0-16.5 [facility] Comment on above: Order Comment: 109-1 Performed By: #### L 100.0100 ####[facility] [address] [place], [address] IG% 0.300 Normal 0.0-0.9 [facility] Comment on above: Order Comment: 109-1 Result Comment: IG% - Immature Granulocytes (promyelocytes, myelocytes andmetamyelocytes) > 1% indicates that a LEFT SHIFT is Present. Performed By: #### L 100.0100 ####[facility] [address] [place], [address] Lymphocytes/100 WBC (Bld) 20.7 % Normal 19-41 [facility] Comment on above: Order Comment: 109-1 Performed By: #### L 100.0100 ####[facility] [address] [place], [address] MCH (RBC) [Entitic mass] 30.4 pg Normal 27.0-32.0 [facility] Comment on above: Order Comment: 109-1 Performed By: #### L 100.0100 ####[facility] [address] [place], [address] MCHC (RBC) [Mass/Vol] 33.1 g/dL Normal 32-36 [facility] Comment on above: Order Comment: 109-1 Performed By: #### L 100.0100 ####[facility] [address] [place], [address] MCV (RBC) [Entitic vol] 92.0 fL Normal 80-94 [facility] Comment on above: Order Comment: 109-1 Performed By: #### L 100.0100 ####[facility] [address] [place], [address] Monocytes/100 WBC (Bld) 8.1 % Normal 0-10 [facility] Comment on above: Order Comment: 109-1 Performed By: #### L 100.0100 ####[facility] [address] [place], [address] Neutrophils/100 WBC (Bld) 69.6 % Normal 47-70 [facility] Comment on above: Order Comment: 109-1 Performed By: #### L 100.0100 ####[facility] [address] [place], [address] Nucleated RBC (Bld) [#/Vol] 0 10*3/uL Normal 0-5 [facility] Comment on above: Order Comment: 109-1 Performed By: #### L 100.0100 ####[facility] [address] [place], [address] Platelet mean volume (Bld) [Entitic vol] 11.5 fL Normal 6.2-12.0 [facility] Comment on above: Order Comment: 109-1 Performed By: #### L 100.0100 ####[facility] [address] [place], [address] Platelets (Bld) [#/Vol] 198 10*3/uL Normal 150-450 [facility] Comment on above: Order Comment: 109-1 Performed By: #### L 100.0100 ####[facility] [address] [place], [address] RBC (Bld) [#/Vol] 4.37 10*6/uL Low 4.6-6.2 [facility] Comment on above: Order Comment: 109-1 Performed By: #### L 100.0100 ####[facility] [address] [place], [address] RDW SD 44.6 fl High 35.1-43.9 [facility] Comment on above: Order Comment: 109-1 Performed By: #### L 100.0100 ####[facility] [address] [place], [address] WBC (Bld) [#/Vol] 9.2 10*3/uL Normal 4.4-11.0 [facility] Comment on above: Order Comment: 109-1 Performed By: #### L 100.0100 ####[facility] [address] [place], [address] Basic Metabolic Profile (BMP )on 01-10-2025 BUN/CRE 27.7 RATIO High 10-20 [facility] Comment on above: Order Comment: 109.1 Performed By: #### L 500.2500 ####[facility] [address] [place], [address] Calcium [Mass/Vol] 8.2 mg/dL Normal 7.6-11.0 [facility] Comment on above: Order Comment: 109.1 Performed By: #### L 500.2500 ####[facility] [address] [place], [address] Chloride [Moles/Vol] 106 mmol/L Normal 98-108 [facility] Comment on above: Order Comment: 109.1 Performed By: #### L 500.2500 ####[facility] [address] [place], [address] CO2 [Moles/Vol] 25.6 mmol/L Normal 21.0-32.0 [facility] Comment on above: Order Comment: 109.1 Performed By: #### L 500.2500 ####[facility] [address] [place], [address] Creatinine [Mass/Vol] 0.54 mg/dL Low 0.70-1.20 [facility] Comment on above: Order Comment: 109.1 Performed By: #### L 500.2500 ####[facility] [address] [place], [address] GAP 9 Normal 5-15 [facility] Comment on above: Order Comment: 109.1 Performed By: #### L 500.2500 ####[facility] [address] [place], [address] GFR/1.73 sq M.predicted among non-blacks MDRD (S/P/Bld) [Vol rate/Area] 109 mL/min/{1.73_m2} Normal >60 [facility] Comment on above: Order Comment: 109.1 Result Comment: mL/m in/1.73m2 CKD-EPI Creatinine Equation (2020) Performed By: #### L 500.2500 ####[facility] [address] [place], [address] Glucose [Mass/Vol] 126 mg/dL High 70-99 [facility] Comment on above: Order Comment: 109.1 Performed By: #### L 500.2500 ####[facility] [address] [place], [address] Potassium [Moles/Vol] 3.8 mmol/L Normal 3.3-5.1 [facility] Comment on above: Order Comment: 109.1 Performed By: #### L 500.2500 ####[facility] [address] [place], [address] Sodium [Moles/Vol] 140 mmol/L Normal 133-145 [facility] Comment on above: Order Comment: 109.1 Performed By: #### L 500.2500 ####[facility] [address] [place], [address] Urea nitrogen [Mass/Vol] 15 mg/dL Normal 4-19 [facility] Comment on above: Order Comment: 109.1 Performed By: #### L 500.2500 ####[facility] [address] [place], [address] CBC W/Diff, Automatedon 09-0 8-2024 PLT EST ADEQUATE Normal ADEQ [facility] Comment on above: Order Comment: 109.1 Performed By: #### L 100.0100 ####[facility] [address] [place], [address] CBC W/Diff, Automatedon 09-0 -2024 Absolute Lymph 1.87 X10 3/uL Normal 0.83-4.51 [facility] Comment on above: Order Comment: 109.1 Performed By: #### L 100.0100 ####[facility] [address] [place], [address] Absolute Neut 5.3 X10 3/uL Normal 2.0-7.7 [facility] Comment on above: Order Comment: 109.1 Performed By: #### L 100.0100 ####[facility] [address] [place], [address] Basophils/100 WBC (Bld) 0.4 % Normal 0-1 [facility] Comment on above: Order Comment: 109.1 Performed By: #### L 100.0100 ####[facility] [address] [place], [address] Eosinophils/100 WBC (Bld) 0.6 % Normal 0-5 [facility] Comment on above: Order Comment: 109.1 Performed By: #### L 100.0100 ####[facility] [address] [place], [address] Erythrocyte distribution width (RBC) [Ratio] 13.1 % Normal 11.6-14.6 [facility] Comment on above: Order Comment: 109.1 Performed By: #### L 100.0100 ####[facility] [address] [place], [address] Hematocrit (Bld) [Volume fraction] 41.3 % Normal 40-54 [facility] Comment on above: Order Comment: 109.1 Performed By: #### L 100.0100 ####[facility] [address] [place], [address] Hemoglobin (Bld) [Mass/Vol] 13.4 g/dL Normal 13.0-16.5 [facility] Comment on above: Order Comment: 109.1 Performed By: #### L 100.0100 ####[facility] [address] [place], [address] IG% 0.400 Normal 0.0-0.9 [facility] Comment on above: Order Comment: 109.1 Result Comment: IG% - Immature Granulocytes (promyelocytes, myelocytes andmetamyelocytes) > 1% indicates that a LEFT SHIFT is Present. Performed By: #### L 100.0100 ####[facility] [address] [place], [address] Lymphocytes/100 WBC (Bld) 23.4 % Normal 19-41 [facility] Comment on above: Order Comment: 109.1 Performed By: #### L 100.0100 ####[facility] [address] [place], [address] MCH (RBC) [Entitic mass] 30.0 pg Normal 27.0-32.0 [facility] Comment on above: Order Comment: 109.1 Performed By: #### L 100.0100 ####[facility] [address] [place], [address] MCHC (RBC) [Mass/Vol] 32.4 g/dL Normal 32-36 [facility] Comment on above: Order Comment: 109.1 Performed By: #### L 100.0100 ####[facility] [address] [place], [address] MCV (RBC) [Entitic vol] 92.4 fL Normal 80-94 [facility] Comment on above: Order Comment: 109.1 Performed By: #### L 100.0100 ####[facility] [address] [place], [address] Monocytes/100 WBC (Bld) 9.0 % Normal 0-10 [facility] Comment on above: Order Comment: 109.1 Performed By: #### L 100.0100 ####[facility] [address] [place], [address] Neutrophils/100 WBC (Bld) 66.2 % Normal 47-70 [facility] Comment on above: Order Comment: 109.1 Performed By: #### L 100.0100 ####[facility] [address] [place], [address] Nucleated RBC (Bld) [#/Vol] 0 10*3/uL Normal 0-5 [facility] Comment on above: Order Comment: 109.1 Performed By: #### L 100.0100 ####[facility] [address] [place], [address] Platelet mean volume (Bld) [Entitic vol] 10.9 fL Normal 6.2-12.0 [facility] Comment on above: Order Comment: 109.1 Performed By: #### L 100.0100 ####[facility] [address] [place], [address] Platelets (Bld) [#/Vol] 209 10*3/uL Normal 150-450 [facility] Comment on above: Order Comment: 109.1 Performed By: #### L 100.0100 ####[facility] [address] [place], [address] RBC (Bld) [#/Vol] 4.47 10*6/uL Low 4.6-6.2 [facility] Comment on above: Order Comment: 109.1 Performed By: #### L 100.0100 ####[facility] [address] [place], [address] RDW SD 43.8 fl Normal 35.1-43.9 [facility] Comment on above: Order Comment: 109.1 Performed By: #### L 100.0100 ####[facility] [address] [place], [address] WBC (Bld) [#/Vol] 8.0 10*3/uL Normal 4.4-11.0 [facility] Comment on above: Order Comment: 109.1 Performed By: #### L 100.0100 ####[facility] [address] [place], [address] CBC W/Diff, Automatedon 08-2 5-2024 Absolute Lymph 1.98 X10 3/uL Normal 0.83-4.51 [facility] Comment on above: Order Comment: 109-1 Performed By: #### L 100.0100 ####[facility] [address] [place], [address] Absolute Neut 4.2 X10 3/uL Normal 2.0-7.7 [facility] Comment on above: Order Comment: 109-1 Performed By: #### L 100.0100 ####[facility] [address] [place], [address] Basophils/100 WBC (Bld) 0.6 % Normal 0-1 [facility] Comment on above: Order Comment: 109-1 Performed By: #### L 100.0100 ####[facility] [address] [place], [address] Eosinophils/100 WBC (Bld) 0.9 % Normal 0-5 [facility] Comment on above: Order Comment: 109-1 Performed By: #### L 100.0100 ####[facility] [address] [place], [address] Erythrocyte distribution width (RBC) [Ratio] 13.0 % Normal 11.6-14.6 [facility] Comment on above: Order Comment: 109-1 Performed By: #### L 100.0100 ####[facility] [address] [place], [address] Hematocrit (Bld) [Volume fraction] 39.9 % Low 40-54 [facility] Comment on above: Order Comment: 109-1 Performed By: #### L 100.0100 ####[facility] [address] [place], [address] Hemoglobin (Bld) [Mass/Vol] 13.4 g/dL Normal 13.0-16.5 [facility] Comment on above: Order Comment: 109-1 Performed By: #### L 100.0100 ####[facility] [address] [place], [address] IG% 0.300 Normal 0.0-0.9 [facility] Comment on above: Order Comment: 109-1 Result Comment: IG% - Immature Granulocytes (promyelocytes, myelocytes andmetamyelocytes) > 1% indicates that a LEFT SHIFT is Present. Performed By: #### L 100.0100 ####[facility] [address] [place], [address] Lymphocytes/100 WBC (Bld) 28.9 % Normal 19-41 [facility] Comment on above: Order Comment: 109-1 Performed By: #### L 100.0100 ####[facility] [address] [place], [address] MCH (RBC) [Entitic mass] 30.9 pg Normal 27.0-32.0 [facility] Comment on above: Order Comment: 109-1 Performed By: #### L 100.0100 ####[facility] [address] [place], [address] MCHC (RBC) [Mass/Vol] 33.6 g/dL Normal 32-36 [facility] Comment on above: Order Comment: 109-1 Performed By: #### L 100.0100 ####[facility] [address] [place], [address] MCV (RBC) [Entitic vol] 91.9 fL Normal 80-94 [facility] Comment on above: Order Comment: 109-1 Performed By: #### L 100.0100 ####[facility] [address] [place], [address] Monocytes/100 WBC (Bld) 8.0 % Normal 0-10 [facility] Comment on above: Order Comment: 109-1 Performed By: #### L 100.0100 ####[facility] [address] [place], [address] Neutrophils/100 WBC (Bld) 61.3 % Normal 47-70 [facility] Comment on above: Order Comment: 109-1 Performed By: #### L 100.0100 ####[facility] [address] [place], [address] Nucleated RBC (Bld) [#/Vol] 0 10*3/uL Normal 0-5 [facility] Comment on above: Order Comment: 109-1 Performed By: #### L 100.0100 ####[facility] [address] [place], [address] Platelet mean volume (Bld) [Entitic vol] 11.7 fL Normal 6.2-12.0 [facility] Comment on above: Order Comment: 109-1 Performed By: #### L 100.0100 ####[facility] [address] [place], [address] Platelets (Bld) [#/Vol] 201 10*3/uL Normal 150-450 [facility] Comment on above: Order Comment: 109-1 Performed By: #### L 100.0100 ####[facility] [address] [place], [address] RBC (Bld) [#/Vol] 4.34 10*6/uL Low 4.6-6.2 [facility] Comment on above: Order Comment: 109-1 Performed By: #### L 100.0100 ####[facility] [address] [place], [address] RDW SD 43.4 fl Normal 35.1-43.9 [facility] Comment on above: Order Comment: 109-1 Performed By: #### L 100.0100 ####[facility] [address] [place], [address] WBC (Bld) [#/Vol] 6.8 10*3/uL Normal 4.4-11.0 [facility] Comment on above: Order Comment: 109-1 Performed By: #### L 100.0100 ####[facility] [address] [place], [address] CBC W/Diff, Automatedon 08- Absolute Lymph 2.15 X10 3/uL Normal 0.83-4.51 [facility] [facility] Comment on above: Order Comment: 109.1 Performed By: #### L 100.0100 ####[facility] [address] [place], [address] Absolute Neut 4.1 X10 3/uL Normal 2.0-7.7 [facility] Comment on above: Order Comment: 109.1 Performed By: #### L 100.0100 ####[facility] [address] [place], [address] Basophils/100 WBC (Bld) 0.7 % Normal 0-1 [facility] Comment on above: Order Comment: 109.1 Performed By: #### L 100.0100 ####[facility] [address] [place], [address] Eosinophils/100 WBC (Bld) 0.9 % Normal 0-5 [facility] Comment on above: Order Comment: 109.1 Performed By: #### L 100.0100 ####[facility] [address] [place], [address] Erythrocyte distribution width (RBC) [Ratio] 13.2 % Normal 11.6-14.6 [facility] Comment on above: Order Comment: 109.1 Performed By: #### L 100.0100 ####[facility] [address] [place], [address] Hematocrit (Bld) [Volume fraction] 38.7 % Low 40-54 [facility] Comment on above: Order Comment: 109.1 Performed By: #### L 100.0100 ####[facility] [address] [place], [address] Hemoglobin (Bld) [Mass/Vol] 12.8 g/dL Low 13.0-16.5 [facility] Comment on above: Order Comment: 109.1 Performed By: #### L 100.0100 ####[facility] [address] [place], [address] IG% 0.300 Normal 0.0-0.9 [facility] Comment on above: Order Comment: 109.1 Result Comment: IG% - Immature Granulocytes (promyelocytes, myelocytes andmetamyelocytes) > 1% indicates that a LEFT SHIFT is Present. Performed By: #### L 100.0100 ####[facility] [address] [place], [address] Lymphocytes/100 WBC (Bld) 30.7 % Normal 19-41 [facility] Comment on above: Order Comment: 109.1 Performed By: #### L 100.0100 ####[facility] [address] [place], [address] MCH (RBC) [Entitic mass] 30.3 pg Normal 27.0-32.0 [facility] Comment on above: Order Comment: 109.1 Performed By: #### L 100.0100 ####[facility] [address] [place], [address] MCHC (RBC) [Mass/Vol] 33.1 g/dL Normal 32-36 [facility] Comment on above: Order Comment: 109.1 Performed By: #### L 100.0100 ####[facility] [address] [place], [address] MCV (RBC) [Entitic vol] 91.7 fL Normal 80-94 [facility] Comment on above: Order Comment: 109.1 Performed By: #### L 100.0100 ####[facility] [address] [place], [address] Monocytes/100 WBC (Bld) 8.6 % Normal 0-10 [facility] Comment on above: Order Comment: 109.1 Performed By: #### L 100.0100 ####[facility] [address] [place], [address] Neutrophils/100 WBC (Bld) 58.8 % Normal 47-70 [facility] Comment on above: Order Comment: 109.1 Performed By: #### L 100.0100 ####[facility] [address] [place], [address] Nucleated RBC (Bld) [#/Vol] 0 10*3/uL Normal 0-5 [facility] Comment on above: Order Comment: 109.1 Performed By: #### L 100.0100 ####[facility] [address] [place], [address] Platelet mean volume (Bld) [Entitic vol] 11.3 fL Normal 6.2-12.0 [facility] Comment on above: Order Comment: 109.1 Performed By: #### L 100.0100 ####[facility] [address] [place], [address] Platelets (Bld) [#/Vol] 202 10*3/uL Normal 150-450 [facility] Comment on above: Order Comment: 109.1 Performed By: #### L 100.0100 ####[facility] [address] [place], [address] RBC (Bld) [#/Vol] 4.22 10*6/uL Low 4.6-6.2 [facility] Comment on above: Order Comment: 109.1 Performed By: #### L 100.0100 ####[facility] [address] [place], [address] RDW SD 44.4 fl High 35.1-43.9 [facility] Comment on above: Order Comment: 109.1 Performed By: #### L 100.0100 ####[facility] [address] [place], [address] WBC (Bld) [#/Vol] 7.0 10*3/uL Normal 4.4-11.0 [facility] Comment on above: Order Comment: 109.1 Performed By: #### L 100.0100 ####[facility] [address] [place], [address] CBC W/Diff, Automatedon 11-29 Absolute Lymph 2.30 X10 3/uL Normal 0.83-4.51 [facility] Comment on above: Order Comment: 109.1 Performed By: #### L 100.0100 ####[facility] [address] [place], [address] Absolute Neut 4.8 X10 3/uL Normal 2.0-7.7 [facility] Comment on above: Order Comment: 109.1 Performed By: #### L 100.0100 ####[facility] [address] [place], [address] Basophils/100 WBC (Bld) 0.5 % Normal 0-1 [facility] Comment on above: Order Comment: 109.1 Performed By: #### L 100.0100 ####[facility] [address] [place], [address] Eosinophils/100 WBC (Bld) 1.0 % Normal 0-5 [facility] Comment on above: Order Comment: 109.1 Performed By: #### L 100.0100 ####[facility] [address] [place], [address] Erythrocyte distribution width (RBC) [Ratio] 13.0 % Normal 11.6-14.6 [facility] Comment on above: Order Comment: 109.1 Performed By: #### L 100.0100 ####[facility] [address] [place], [address] Hematocrit (Bld) [Volume fraction] 40.3 % Normal 40-54 [facility] Comment on above: Order Comment: 109.1 Performed By: #### L 100.0100 ####[facility] [address] [place], [address] Hemoglobin (Bld) [Mass/Vol] 12.8 g/dL Low 13.0-16.5 [facility] Comment on above: Order Comment: 109.1 Performed By: #### L 100.0100 ####[facility] [address] [place], [address] IG% 0.400 Normal 0.0-0.9 [facility] Comment on above: Order Comment: 109.1 Result Comment: IG% - Immature Granulocytes (promyelocytes, myelocytes andmetamyelocytes) > 1% indicates that a LEFT SHIFT is Present. Performed By: #### L 100.0100 ####[facility] [address] [place], [address] Lymphocytes/100 WBC (Bld) 29.2 % Normal 19-41 [facility] Comment on above: Order Comment: 109.1 Performed By: #### L 100.0100 ####[facility] [address] [place], [address] MCH (RBC) [Entitic mass] 29.6 pg Normal 27.0-32.0 [facility] Comment on above: Order Comment: 109.1 Performed By: #### L 100.0100 ####[facility] [address] [place], [address] MCHC (RBC) [Mass/Vol] 31.8 g/dL Low 32-36 [facility] Comment on above: Order Comment: 109.1 Performed By: #### L 100.0100 ####[facility] [address] [place], [address] MCV (RBC) [Entitic vol] 93.1 fL Normal 80-94 [facility] Comment on above: Order Comment: 109.1 Performed By: #### L 100.0100 ####[facility] [address] [place], [address] Monocytes/100 WBC (Bld) 7.7 % Normal 0-10 [facility] Comment on above: Order Comment: 109.1 Performed By: #### L 100.0100 ####[facility] [address] [place], [address] Neutrophils/100 WBC (Bld) 61.2 % Normal 47-70 [facility] Comment on above: Order Comment: 109.1 Performed By: #### L 100.0100 ####[facility] [address] [place], [address] Nucleated RBC (Bld) [#/Vol] 0 10*3/uL Normal 0-5 [facility] Comment on above: Order Comment: 109.1 Performed By: #### L 100.0100 ####[facility] [address] [place], [address] Platelet mean volume (Bld) [Entitic vol] 11.5 fL Normal 6.2-12.0 [facility] Comment on above: Order Comment: 109.1 Performed By: #### L 100.0100 ####[facility] [address] [place], [address] Platelets (Bld) [#/Vol] 194 10*3/uL Normal 150-450 [facility] Comment on above: Order Comment: 109.1 Performed By: #### L 100.0100 ####[facility] [address] [place], [address] RBC (Bld) [#/Vol] 4.33 10*6/uL Low 4.6-6.2 [facility] Comment on above: Order Comment: 109.1 Performed By: #### L 100.0100 ####[facility] [address] [place], [address] RDW SD 44.3 fl High 35.1-43.9 [facility] Comment on above: Order Comment: 109.1 Performed By: #### L 100.0100 ####[facility] [address] [place], [address] WBC (Bld) [#/Vol] 7.9 10*3/uL Normal 4.4-11.0 [facility] Comment on above: Order Comment: 109.1 Performed By: #### L 100.0100 ####[facility] [address] [place], [address] CBC W/Diff, Automatedon 08-0 4-2024 Absolute Lymph 2.83 X10 3/uL Normal 0.83-4.51 [facility] Comment on above: Order Comment: 109.1 Performed By: #### L 100.0100 ####[facility] [address] [place], [address] Absolute Neut 4.7 X10 3/uL Normal 2.0-7.7 [facility] Comment on above: Order Comment: 109.1 Performed By: #### L 100.0100 ####[facility] [address] [place], [address] Basophils/100 WBC (Bld) 0.8 % Normal 0-1 [facility] Comment on above: Order Comment: 109.1 Performed By: #### L 100.0100 ####[facility] [address] [place], [address] Eosinophils/100 WBC (Bld) 0.9 % Normal 0-5 [facility] Comment on above: Order Comment: 109.1 Performed By: #### L 100.0100 ####[facility] [address] [place], [address] Erythrocyte distribution width (RBC) [Ratio] 13.2 % Normal 11.6-14.6 [facility] Comment on above: Order Comment: 109.1 Performed By: #### L 100.0100 ####[facility] [address] [place], [address] Hematocrit (Bld) [Volume fraction] 41.4 % Normal 40-54 [facility] Comment on above: Order Comment: 109.1 Performed By: #### L 100.0100 ####[facility] [address] [place], [address] Hemoglobin (Bld) [Mass/Vol] 13.2 g/dL Normal 13.0-16.5 [facility] Comment on above: Order Comment: 109.1 Performed By: #### L 100.0100 ####[facility] [address] [place], [address] IG% 0.300 Normal 0.0-0.9 [facility] Comment on above: Order Comment: 109.1 Result Comment: IG% - Immature Granulocytes (promyelocytes, myelocytes andmetamyelocytes) > 1% indicates that a LEFT SHIFT is Present. Performed By: #### L 100.0100 ####[facility] [address] [place], [address] Lymphocytes/100 WBC (Bld) 31.3 % Normal 19-41 [facility] Comment on above: Order Comment: 109.1 Performed By: #### L 100.0100 ####[facility] [address] [place], [address] MCH (RBC) [Entitic mass] 30.1 pg Normal 27.0-32.0 [facility] Comment on above: Order Comment: 109.1 Performed By: #### L 100.0100 ####[facility] [address] [place], [address] MCHC (RBC) [Mass/Vol] 31.9 g/dL Low 32-36 [facility] Comment on above: Order Comment: 109.1 Performed By: #### L 100.0100 ####[facility] [address] [place], [address] MCV (RBC) [Entitic vol] 94.5 fL High 80-94 [facility] Comment on above: Order Comment: 109.1 Performed By: #### L 100.0100 ####[facility] [address] [place], [address] Monocytes/100 WBC (Bld) 14.8 % High 0-10 [facility] Comment on above: Order Comment: 109.1 Performed By: #### L 100.0100 ####[facility] [address] [place], [address] Neutrophils/100 WBC (Bld) 51.9 % Normal 47-70 [facility] Comment on above: Order Comment: 109.1 Performed By: #### L 100.0100 ####[facility] [address] [place], [address] Nucleated RBC (Bld) [#/Vol] 0 10*3/uL Normal 0-5 [facility] Comment on above: Order Comment: 109.1 Performed By: #### L 100.0100 ####[facility] [address] [place], [address] Platelet mean volume (Bld) [Entitic vol] 11.2 fL Normal 6.2-12.0 [facility] Comment on above: Order Comment: 109.1 Performed By: #### L 100.0100 ####[facility] [address] [place], [address] Platelets (Bld) [#/Vol] 182 10*3/uL Normal 150-450 [facility] Comment on above: Order Comment: 109.1 Performed By: #### L 100.0100 ####[facility] [address] [place], [address] RBC (Bld) [#/Vol] 4.38 10*6/uL Low 4.6-6.2 [facility] Comment on above: Order Comment: 109.1 Performed By: #### L 100.0100 ####[facility] [address] [place], [address] RDW SD 45.5 fl High 35.1-43.9 [facility] Comment on above: Order Comment: 109.1 Performed By: #### L 100.0100 ####[facility] [address] [place], [address] WBC (Bld) [#/Vol] 9.1 10*3/uL Normal 4.4-11.0 [facility] Comment on above: Order Comment: 109.1 Performed By: #### L 100.0100 ####[facility] [address] [place], [address] Absolute lymphocyte countOrd ered By: Renard Burgos on 11-25-2024 Lymphocytes Auto (Unsp spec) [#/Vol] 1.80 10*3/uL 0.83-4.51 [facility] Absolute neutrophil countOrd ered By: Renard Burgos on 11-25-2024 Neutrophils (Bld) [#/Vol] 7.6 10*3/uL 2.0-7.7 [facility] Automated blood erythrocyte countOrdered By: Renard Burgos on 11-25-2024 RBC (Bld) [#/Vol] 4.57 10*6/uL Low 4.6-6.2 [facility] Comment on above: Order Comment: 109-1 Performed By: #### L 100.0100 ####[facility] [address] [place], [address] Automated blood hematocrit ( percentage)Ordered By: Renard Burgos on 11-25-2024 Hematocrit (Bld) [Volume fraction] 42.1 % Normal 40-54 [facility] Comment on above: Order Comment: 109-1 Performed By: #### L 100.0100 ####[facility] [address] [place], [address] Automated lymphocyte count a s percentage of total leukocytesOrdered By: Renard Burgos on 11-25-2024 Lymphocytes/100 WBC Auto (Unsp spec) 17.3 % Low 19-41 [facility] Basophil percentageOrdered B y: Renard Burgos on 11-25-2024 Basophils/100 WBC (Bld) 0.4 % Normal 0-1 [facility] Comment on above: Order Comment: 109-1 Performed By: #### L 100.0100 ####[facility] [address] [place], [address] CBC W/Diff, Automatedon 07-2 Absolute Lymph 1.80 X10 3/uL Normal 0.83-4.51 [facility] Comment on above: Order Comment: 109-1 Performed By: #### L 100.0100 ####[facility] [address] [place], [address] Absolute Neut 7.6 X10 3/uL Normal 2.0-7.7 [facility] Comment on above: Order Comment: 109-1 Performed By: #### L 100.0100 ####[facility] [address] [place], [address] IG% 0.400 Normal 0.0-0.9 [facility] Comment on above: Order Comment: 109-1 Result Comment: IG% - Immature Granulocytes (promyelocytes, myelocytes andmetamyelocytes) > 1% indicates that a LEFT SHIFT is Present. Performed By: #### L 100.0100 ####[facility] [address] [place], [address] Lymphocytes/100 WBC (Bld) 17.3 % Low 19-41 [facility] Comment on above: Order Comment: 109-1 Performed By: #### L 100.0100 ####[facility] [address] [place], [address] Nucleated RBC (Bld) [#/Vol] 0 10*3/uL Normal 0-5 [facility] Comment on above: Order Comment: 109-1 Performed By: #### L 100.0100 ####[facility] [address] [place], [address] RDW SD 43.7 fl Normal 35.1-43.9 [facility] Comment on above: Order Comment: 109-1 Performed By: #### L 100.0100 ####[facility] [address] [place], [address] Eosinophil percentageOrdered By: Renard Burgos on 11-25-2024 Eosinophils/100 WBC (Bld) 0.6 % Normal 0-5 [facility] Comment on above: Order Comment: 109-1 Performed By: #### L 100.0100 ####[facility] [address] [place], [address] Erythrocyte distribution wid th ratioOrdered By: Renard Burgos on 11-25-2024 Erythrocyte distribution width (RBC) [Ratio] 12.9 % Normal 11.6-14.6 [facility] Comment on above: Order Comment: 109-1 Performed By: #### L 100.0100 ####[facility] [address] [place], [address] Erythrocyte distribution wid th standard deviationOrdered By: Renard Burgos on 11-25-2024 Erythrocyte distribution width (RBC) [Ratio] 43.7 fl 35.1-43.9 [facility] Hemoglobin measurementOrdere d By: Renard Burgos on 11-25-2024 Hemoglobin (Bld) [Mass/Vol] 13.8 g/dL Normal 13.0-16.5 [facility] Comment on above: Order Comment: 109-1 Performed By: #### L 100.0100 ####[facility] [address] [place], [place], [address] Immature granulocytes/100 WB C Auto (Bld)Ordered By: Renard Burgos on 11-25-2024 Immature granulocytes/100 WBC (Bld) 0.400 % 0.0-0.9 [facility] Comment on above: IG% - Immature Granu locytes (promyelocytes, myelocytes and metamyelocytes) > 1% indicates that a LEFT SHIFT is Present. MCV (mean corpuscular volume ) determinationOrdered By: Renard Burgos on 11-25-2024 MCV (RBC) [Entitic vol] 92.1 fL Normal 80-94 [facility] Comment on above: Order Comment: 109-1 Performed By: #### L 100.0100 ####[facility] [address] [place], [place], [address] Mean corpuscular hemoglobin (MCH) determinationOrdered By: Renard Burgos on 11-25-2024 MCH (RBC) [Entitic mass] 30.2 pg Normal 27.0-32.0 [facility] Comment on above: Order Comment: 109-1 Performed By: #### L 100.0100 ####[facility] [address] [place], [place], [address] Mean corpuscular hemoglobin concentration (MCHC) determinationOrdered By: Renard Burgos on 11-25-2024 MCHC (RBC) [Mass/Vol] 32.8 g/dL Normal 32-36 [facility] Comment on above: Order Comment: 109-1 Performed By: #### L 100.0100 ####[facility] [address] [place], [place], [address] Mean platelet volume determi nationOrdered By: Renard Burgos on 11-25-2024 Platelet mean volume (Bld) [Entitic vol] 11.7 fL Normal 6.2-12.0 [facility] Comment on above: Order Comment: 109-1 Performed By: #### L 100.0100 ####[facility] [address] [place], [place], [address] Monocyte percentageOrdered B y: Renard Burgos on 11-25-2024 Monocytes/100 WBC (Bld) 8.6 % Normal 0-10 [facility] Comment on above: Order Comment: 109-1 Performed By: #### L 100.0100 ####[facility] [address] [place], [place], [address] Neutrophil percentageOrdered By: Renard Burgos on 11-25-2024 Neutrophils/100 WBC (Bld) 72.7 % High 47-70 [facility] Comment on above: Order Comment: 109-1 Performed By: #### L 100.0100 ####[facility] [address] [place], [address] Nucleated red blood cell per centageOrdered By: Renard Burgos on 11-25-2024 Nucleated RBC/100 WBC (Bld) [Ratio] 0 % 0-5 [facility] Platelet countOrdered By: Garrick Bhatt on 11-25-2024 Platelets (Bld) [#/Vol] 201 10*3/uL Normal 150-450 [facility] Comment on above: Order Comment: 109-1 Performed By: #### L 100.0100 ####[facility] [address] [place], [address] White blood cell (WBC) count Ordered By: Renard Burgos on 11-25-2024 WBC (Bld) [#/Vol] 10.4 10*3/uL Normal 4.4-11.0 [facility] Comment on above: Order Comment: 109-1 Performed By: #### L 100.0100 ####[facility] [address] [place], [place], [address] Absolute lymphocyte countOrd ered By: Renard Burgos on 11-18-2024 Lymphocytes Auto (Unsp spec) [#/Vol] 2.56 10*3/uL 0.83-4.51 [facility] Absolute neutrophil countOrd ered By: Renard Burgos on 11-18-2024 Neutrophils (Bld) [#/Vol] 6.7 10*3/uL 2.0-7.7 [facility] Automated lymphocyte count a s percentage of total leukocytesOrdered By: Renard Burgos on 11-18-2024 Lymphocytes/100 WBC Auto (Unsp spec) 24.9 % 19-41 [facility] Basophil percentageOrdered B y: Renard Burgos on 11-18-2024 Basophils/100 WBC (Bld) 0.5 % 0-1 [facility] CBC W/Diff, Automatedon 10-30 Absolute Lymph 2.56 X10 3/uL Normal 0.83-4.51 [facility] Comment on above: Order Comment: 109.1 Performed By: #### L 100.0100 ####[facility] [address] [place], [address] Absolute Neut 6.7 X10 3/uL Normal 2.0-7.7 [facility] Comment on above: Order Comment: 109.1 Performed By: #### L 100.0100 ####[facility] [address] [place], [address] Basophils/100 WBC (Bld) 0.5 % Normal 0-1 [facility] Comment on above: Order Comment: 109.1 Performed By: #### L 100.0100 ####[facility] [address] [place], [address] Eosinophils/100 WBC (Bld) 0.8 % Normal 0-5 [facility] Comment on above: Order Comment: 109.1 Performed By: #### L 100.0100 ####[facility] [address] [place], [address] Erythrocyte distribution width (RBC) [Ratio] 13.2 % Normal 11.6-14.6 [facility] Comment on above: Order Comment: 109.1 Performed By: #### L 100.0100 ####[facility] [address] [place], [address] Hematocrit (Bld) [Volume fraction] 41.6 % Normal 40-54 [facility] Comment on above: Order Comment: 109.1 Performed By: #### L 100.0100 ####[facility] [address] [place], [address] Hemoglobin (Bld) [Mass/Vol] 13.6 g/dL Normal 13.0-16.5 [facility] Comment on above: Order Comment: 109.1 Performed By: #### L 100.0100 ####[facility] [address] [place], [address] IG% 0.400 Normal 0.0-0.9 [facility] Comment on above: Order Comment: 109.1 Result Comment: IG% - Immature Granulocytes (promyelocytes, myelocytes andmetamyelocytes) > 1% indicates that a LEFT SHIFT is Present. Performed By: #### L 100.0100 ####[facility] [address] [place], [address] Lymphocytes/100 WBC (Bld) 24.9 % Normal 19-41 [facility] Comment on above: Order Comment: 109.1 Performed By: #### L 100.0100 ####[facility] [address] [place], [address] MCH (RBC) [Entitic mass] 30.3 pg Normal 27.0-32.0 [facility] Comment on above: Order Comment: 109.1 Performed By: #### L 100.0100 ####[facility] [address] [place], [address] MCHC (RBC) [Mass/Vol] 32.7 g/dL Normal 32-36 [facility] Comment on above: Order Comment: 109.1 Performed By: #### L 100.0100 ####[facility] [address] [place], [address] MCV (RBC) [Entitic vol] 92.7 fL Normal 80-94 [facility] Comment on above: Order Comment: 109.1 Performed By: #### L 100.0100 ####[facility] [address] [place], [address] Monocytes/100 WBC (Bld) 8.9 % Normal 0-10 [facility] Comment on above: Order Comment: 109.1 Performed By: #### L 100.0100 ####[facility] [address] [place], [address] Neutrophils/100 WBC (Bld) 64.5 % Normal 47-70 [facility] Comment on above: Order Comment: 109.1 Performed By: #### L 100.0100 ####[facility] [address] [place], [address] Nucleated RBC (Bld) [#/Vol] 0 10*3/uL Normal 0-5 [facility] Comment on above: Order Comment: 109.1 Performed By: #### L 100.0100 ####[facility] [address] [place], [address] Platelet mean volume (Bld) [Entitic vol] 11.0 fL Normal 6.2-12.0 [facility] Comment on above: Order Comment: 109.1 Performed By: #### L 100.0100 ####[facility] [address] [place], [address] Platelets (Bld) [#/Vol] 177 10*3/uL Normal 150-450 [facility] Comment on above: Order Comment: 109.1 Performed By: #### L 100.0100 ####[facility] [address] [place], [address] RBC (Bld) [#/Vol] 4.49 10*6/uL Low 4.6-6.2 [facility] Comment on above: Order Comment: 109.1 Performed By: #### L 100.0100 ####[facility] [address] [place], [address] RDW SD 44.9 fl High 35.1-43.9 [facility] Comment on above: Order Comment: 109.1 Performed By: #### L 100.0100 ####[facility] [address] [place], [address] WBC (Bld) [#/Vol] 10.3 10*3/uL Normal 4.4-11.0 [facility] Comment on above: Order Comment: 109.1 Performed By: #### L 100.0100 ####[facility] [address] [place], [address] Eosinophil percentageOrdered By: Renard Burgos on 11-18-2024 Eosinophils/100 WBC (Bld) 0.8 % 0-5 [facility] Erythrocyte distribution wid th ratioOrdered By: Renard Burgos on 11-18-2024 Erythrocyte distribution width (RBC) [Ratio] 13.2 % 11.6-14.6 [facility] Erythrocyte distribution wid th standard deviationOrdered By: Renard Burgos on 11-18-2024 Erythrocyte distribution width (RBC) [Ratio] 44.9 fl High 35.1-43.9 [facility] Hematocrit Auto (Bld) [Volum e fraction]Ordered By: Renard Burgos on 11-18-2024 Hematocrit (Bld) [Volume fraction] 41.6 % 40-54 [facility] Hemoglobin measurementOrdere d By: Renard Burgos on 11-18-2024 Hemoglobin (Bld) [Mass/Vol] 13.6 g/dL 13.0-16.5 [facility] Immature granulocytes/100 WB C Auto (Bld)Ordered By: Renard Burgos on 11-18-2024 Immature granulocytes/100 WBC (Bld) 0.400 % 0.0-0.9 [facility] Comment on above: IG% - Immature Granu locytes (promyelocytes, myelocytes and metamyelocytes) > 1% indicates that a LEFT SHIFT is Present. MCV (mean corpuscular volume ) determinationOrdered By: Renard Burgos on 11-18-2024 MCV (RBC) [Entitic vol] 92.7 fL 80-94 [facility] Mean corpuscular hemoglobin (MCH) determinationOrdered By: Renard Burgos on 11-18-2024 MCH (RBC) [Entitic mass] 30.3 pg 27.0-32.0 [facility] Mean corpuscular hemoglobin concentration (MCHC) determinationOrdered By: Renard Burgos on 11-18-2024 MCHC (RBC) [Mass/Vol] 32.7 g/dL 32-36 [facility] Mean platelet volume determi nationOrdered By: Renard Burgos on 11-18-2024 Platelet mean volume (Bld) [Entitic vol] 11.0 fL 6.2-12.0 [facility] Monocyte percentageOrdered B y: Renard Burgos on 11-18-2024 Monocytes/100 WBC (Bld) 8.9 % 0-10 [facility] Neutrophil percentageOrdered By: Renard Burgos on 11-18-2024 Neutrophils/100 WBC (Bld) 64.5 % 47-70 [facility] Nucleated red blood cell per centageOrdered By: Renard Burgos on 11-18-2024 Nucleated RBC/100 WBC (Bld) [Ratio] 0 % 0-5 [facility] Platelet countOrdered By: Garrick Bhatt on 11-18-2024 Platelets (Bld) [#/Vol] 177 10*3/uL 150-450 [facility] RBC Auto (Bld) [#/Vol]Ordere d By: Renard Burgos on 11-18-2024 RBC (Bld) [#/Vol] 4.49 10*6/uL Low 4.6-6.2 [facility] White blood cell (WBC) count Ordered By: Renard Burgos on 11-18-2024 WBC (Bld) [#/Vol] 10.3 10*3/uL 4.4-11.0 [facility] Basic Metabolic Profile (BMP )on 11-12-2024 BUN/CRE 18.8 RATIO Normal 10-20 [facility] Comment on above: Order Comment: ADDED BMP TO 11/11/24 LABS Performed By: #### L 100.0100, L500.2500 ####[facility] [address] [place], [address] Calcium [Mass/Vol] 8.2 mg/dL Normal 7.6-11.0 [facility] Comment on above: Order Comment: ADDED BMP TO 11/11/24 LABS Performed By: #### L 100.0100, L500.2500 ####[facility] [address] [place], [address] Chloride [Moles/Vol] 104 mmol/L Normal 98-108 [facility] Comment on above: Order Comment: ADDED BMP TO 11/11/24 LABS Performed By: #### L 100.0100, L500.2500 ####[facility] [address] [place], [address] CO2 [Moles/Vol] 24.9 mmol/L Normal 21.0-32.0 [facility] Comment on above: Order Comment: ADDED BMP TO 11/11/24 LABS Performed By: #### L 100.0100, L500.2500 ####[facility] [address] [place], [address] Creatinine [Mass/Vol] 0.58 mg/dL Low 0.70-1.20 [facility] Comment on above: Order Comment: ADDED BMP TO 11/11/24 LABS Performed By: #### L 100.0100, L500.2500 ####[facility] [address] [place], [address] GAP 11 Normal 5-15 [facility] Comment on above: Order Comment: ADDED BMP TO 11/11/24 LABS Performed By: #### L 100.0100, L500.2500 ####[facility] [address] [place], [address] GFR/1.73 sq M.predicted among non-blacks MDRD (S/P/Bld) [Vol rate/Area] 107 mL/min/{1.73_m2} Normal >60 [facility] Comment on above: Order Comment: ADDED BMP TO 11/11/24 LABS Result Comment: mL/m in/1.73m2 CKD-EPI Creatinine Equation (2020) Performed By: #### L 100.0100, L500.2500 ####[facility] [address] [place], [address] Glucose [Mass/Vol] 101 mg/dL High 70-99 [facility] Comment on above: Order Comment: ADDED BMP TO 11/11/24 LABS Performed By: #### L 100.0100, L500.2500 ####[facility] [address] [place], [address] Potassium [Moles/Vol] 3.9 mmol/L Normal 3.3-5.1 [facility] Comment on above: Order Comment: ADDED BMP TO 11/11/24 LABS Performed By: #### L 100.0100, L500.2500 ####[facility] [address] [place], [address] Sodium [Moles/Vol] 140 mmol/L Normal 133-145 [facility] Comment on above: Order Comment: ADDED BMP TO 11/11/24 LABS Performed By: #### L 100.0100, L500.2500 ####[facility] [address] [place], [address] Urea nitrogen [Mass/Vol] 11 mg/dL Normal 4-19 [facility] Comment on above: Order Comment: ADDED BMP TO 11/11/24 LABS Performed By: #### L 100.0100, L500.2500 ####[facility] [address] [place], [address] Absolute lymphocyte countOrd ered By: Renard Burgos on 11-11-2024 Lymphocytes Auto (Unsp spec) [#/Vol] 2.08 10*3/uL 0.83-4.51 [facility] Absolute neutrophil countOrd ered By: Renard Burgos on 11-11-2024 Neutrophils (Bld) [#/Vol] 5.2 10*3/uL 2.0-7.7 [facility] Anion gap in Serum or Plasma Ordered By: Renard Burgos on 11-11-2024 Anion gap [Moles/Vol] 11 mmol/L 5-15 [facility] Automated lymphocyte count a s percentage of total leukocytesOrdered By: Renard Burgos on 11-11-2024 Lymphocytes/100 WBC Auto (Unsp spec) 25.7 % - [facility] BUN/creatinine ratioOrdered By: Renard Burgos on 11-11-2024 Urea nitrogen/Creatinine [Mass ratio] 18.8 mg/mg 10-20 [facility] Basophil percentageOrdered B y: Renard Burgos on 11-11-2024 Basophils/100 WBC (Bld) 0.6 % 0-1 [facility] CBC W/Diff, Automatedon 07-05 04-2024 Absolute Lymph 2.08 X10 3/uL Normal 0.83-4.51 [facility] Comment on above: Order Comment: 109.1 Performed By: #### L 100.0100, L500.2500 ####[facility] [address] [place], [address] Absolute Neut 5.2 X10 3/uL Normal 2.0-7.7 [facility] Comment on above: Order Comment: 109.1 Performed By: #### L 100.0100, L500.2500 ####[facility] [address] [place], [address] Basophils/100 WBC (Bld) 0.6 % Normal 0-1 [facility] Comment on above: Order Comment: 109.1 Performed By: #### L 100.0100, L500.2500 ####[facility] [address] [place], [address] Eosinophils/100 WBC (Bld) 1.0 % Normal 0-5 [facility] Comment on above: Order Comment: 109.1 Performed By: #### L 100.0100, L500.2500 ####[facility] [address] [place], [address] Erythrocyte distribution width (RBC) [Ratio] 13.2 % Normal 11.6-14.6 [facility] Comment on above: Order Comment: 109.1 Performed By: #### L 100.0100, L500.2500 ####[facility] [address] [place], [address] Hematocrit (Bld) [Volume fraction] 38.6 % Low 40-54 [facility] Comment on above: Order Comment: 109.1 Performed By: #### L 100.0100, L500.2500 ####[facility] [address] [place], [address] Hemoglobin (Bld) [Mass/Vol] 12.6 g/dL Low 13.0-16.5 [facility] Comment on above: Order Comment: 109.1 Performed By: #### L 100.0100, L500.2500 ####[facility] [address] [place], [address] IG% 0.400 Normal 0.0-0.9 [facility] Comment on above: Order Comment: 109.1 Result Comment: IG% - Immature Granulocytes (promyelocytes, myelocytes andmetamyelocytes) > 1% indicates that a LEFT SHIFT is Present. Performed By: #### L 100.0100, L500.2500 ####[facility] [address] [place], [address] Lymphocytes/100 WBC (Bld) 25.7 % Normal 19-41 [facility] Comment on above: Order Comment: 109.1 Performed By: #### L 100.0100, L500.2500 ####[facility] [address] [place], [address] MCH (RBC) [Entitic mass] 29.9 pg Normal 27.0-32.0 [facility] Comment on above: Order Comment: 109.1 Performed By: #### L 100.0100, L500.2500 ####[facility] [address] [place], [address] MCHC (RBC) [Mass/Vol] 32.6 g/dL Normal 32-36 [facility] Comment on above: Order Comment: 109.1 Performed By: #### L 100.0100, L500.2500 ####[facility] [address] [place], [address] MCV (RBC) [Entitic vol] 91.7 fL Normal 80-94 [facility] Comment on above: Order Comment: 109.1 Performed By: #### L 100.0100, L500.2500 ####[facility] [address] [place], [address] Monocytes/100 WBC (Bld) 8.3 % Normal 0-10 [facility] Comment on above: Order Comment: 109.1 Performed By: #### L 100.0100, L500.2500 ####[facility] [address] [place], [address] Neutrophils/100 WBC (Bld) 64.0 % Normal 47-70 [facility] Comment on above: Order Comment: 109.1 Performed By: #### L 100.0100, L500.2500 ####[facility] [address] [place], [address] Nucleated RBC (Bld) [#/Vol] 0 10*3/uL Normal 0-5 [facility] Comment on above: Order Comment: 109.1 Performed By: #### L 100.0100, L500.2500 ####[facility] [address] [place], [address] Platelet mean volume (Bld) [Entitic vol] 11.4 fL Normal 6.2-12.0 [facility] Comment on above: Order Comment: 109.1 Performed By: #### L 100.0100, L500.2500 ####[facility] [address] [place], [address] Platelets (Bld) [#/Vol] 220 10*3/uL Normal 150-450 [facility] Comment on above: Order Comment: 109.1 Performed By: #### L 100.0100, L500.2500 ####[facility] [address] [place], [address] RBC (Bld) [#/Vol] 4.21 10*6/uL Low 4.6-6.2 [facility] Comment on above: Order Comment: 109.1 Performed By: #### L 100.0100, L500.2500 ####[facility] [address] [place], [address] RDW SD 44.4 fl High 35.1-43.9 [facility] Comment on above: Order Comment: 109.1 Performed By: #### L 100.0100, L500.2500 ####[facility] [address] [place], [address] WBC (Bld) [#/Vol] 8.1 10*3/uL Normal 4.4-11.0 [facility] Comment on above: Order Comment: 109.1 Performed By: #### L 100.0100, L500.2500 ####[facility] [address] [place], [address] Carbon dioxide, total [Moles /volume] in Central venous bloodOrdered By: Renard Burgos on 11-11-2024 CO2 [Moles/Vol] 24.9 mmol/L 21.0-32.0 [facility] Chloride assayOrdered By: Garrick Bhatt on 11-11-2024 Chloride [Moles/Vol] 104 mmol/L 98-108 [facility] Eosinophil percentageOrdered By: Renard Burgos on 11-11-2024 Eosinophils/100 WBC (Bld) 1.0 % 0-5 [facility] Erythrocyte distribution wid th ratioOrdered By: Renard Burgos on 11-11-2024 Erythrocyte distribution width (RBC) [Ratio] 13.2 % 11.6-14.6 [facility] Erythrocyte distribution wid th standard deviationOrdered By: Renard Burgos on 11-11-2024 Erythrocyte distribution width (RBC) [Ratio] 44.4 fl High 35.1-43.9 [facility] Glomerular filtration rate ( GFR) estimation/1.73 sq m using serum, plasma, or whole bOrdered By: Renard Burgos on 11-11-2024 GFR/1.73 sq M.predicted among non-blacks MDRD (S/P/Bld) [Vol rate/Area] 107 mL/min/{1.73_m2} >60 [facility] Comment on above: mL/min/1.73m2 CKD-EP I Creatinine Equation (2020) Hematocrit Auto (Bld) [Volum e fraction]Ordered By: Renard Burgos on 11-11-2024 Hematocrit (Bld) [Volume fraction] 38.6 % Low 40-54 [facility] Hemoglobin measurementOrdere d By: Renard Burgos on 11-11-2024 Hemoglobin (Bld) [Mass/Vol] 12.6 g/dL Low 13.0-16.5 [facility] Immature granulocytes/100 WB C Auto (Bld)Ordered By: Renard Burgos on 11-11-2024 Immature granulocytes/100 WBC (Bld) 0.400 % 0.0-0.9 [facility] Comment on above: IG% - Immature Granu locytes (promyelocytes, myelocytes and metamyelocytes) > 1% indicates that a LEFT SHIFT is Present. MCV (mean corpuscular volume ) determinationOrdered By: Renard Burgos on 11-11-2024 MCV (RBC) [Entitic vol] 91.7 fL 80-94 [facility] Mean corpuscular hemoglobin (MCH) determinationOrdered By: Renard Burgos on 11-11-2024 MCH (RBC) [Entitic mass] 29.9 pg 27.0-32.0 [facility] Mean corpuscular hemoglobin concentration (MCHC) determinationOrdered By: Renard Burgos on 11-11-2024 MCHC (RBC) [Mass/Vol] 32.6 g/dL 32-36 [facility] Mean platelet volume determi nationOrdered By: Renard Burgos on 11-11-2024 Platelet mean volume (Bld) [Entitic vol] 11.4 fL 6.2-12.0 [facility] Monocyte percentageOrdered B y: Renard Burgos on 11-11-2024 Monocytes/100 WBC (Bld) 8.3 % 0-10 [facility] Neutrophil percentageOrdered By: Renard Burgos on 11-11-2024 Neutrophils/100 WBC (Bld) 64.0 % 47-70 [facility] Nucleated red blood cell per centageOrdered By: Renard Burgos on 11-11-2024 Nucleated RBC/100 WBC (Bld) [Ratio] 0 % 0-5 [facility] Platelet countOrdered By: Garrick Bhatt on 11-11-2024 Platelets (Bld) [#/Vol] 220 10*3/uL 150-450 [facility] Potassium measurement (mass/ volume)Ordered By: Renard Burgos on 11-11-2024 Potassium (Unsp spec) [Mass/Vol] 3.9 mmol/L 3.3-5.1 [facility] RBC Auto (Bld) [#/Vol]Ordere d By: Renard Burgos on 11-11-2024 RBC (Bld) [#/Vol] 4.21 10*6/uL Low 4.6-6.2 [facility] Serum creatinine measurement (mass/volume)Ordered By: Renard Burgos on 11-11-2024 Creatinine [Mass/Vol] 0.58 mg/dL Low 0.70-1.20 [facility] Serum glucose measurement (m ass/volume)Ordered By: Renard Burgos on 11-11-2024 Glucose [Mass/Vol] 101 mg/dL High 70-99 [facility] Serum or plasma calcium gordy urement (mass/volume)Ordered By: Renard Burgos on 11-11-2024 Calcium [Mass/Vol] 8.2 mg/dL 7.6-11.0 [facility] Serum or plasma urea nitroge n measurement (mass/volume)Ordered By: Renard Burgos on 11-11-2024 Urea nitrogen [Mass/Vol] 11 mg/dL 4-19 [facility] Sodium levelOrdered By: Lamine Burgos on 11-11-2024 Sodium [Moles/Vol] 140 mmol/L 133-145 [facility] White blood cell (WBC) count Ordered By: Renard Burgos on 11-11-2024 WBC (Bld) [#/Vol] 8.1 10*3/uL 4.4-11.0 [facility] Absolute lymphocyte countOrd ered By: Renard Burgos on 11-04-2024 Lymphocytes Auto (Unsp spec) [#/Vol] 2.18 10*3/uL 0.83-4.51 [facility] Absolute neutrophil countOrd ered By: Renard Burgos on 11-04-2024 Neutrophils (Bld) [#/Vol] 4.8 10*3/uL 2.0-7.7 [facility] Automated lymphocyte count a s percentage of total leukocytesOrdered By: Renard Burgos on 11-04-2024 Lymphocytes/100 WBC Auto (Unsp spec) 28.1 % 19-41 [facility] Basophil percentageOrdered B y: Renard Burgos on 11-04-2024 Basophils/100 WBC (Bld) 0.6 % 0-1 [facility] CBC W/Diff, Automatedon PLT EST A Normal ADEQ [facility] Comment on above: Order Comment: 109 Performed By: #### L 100.0100 ####[facility] [address] [facility] [place], [place], [address] PLT MORPH CLUMPED Normal [facility] Comment on above: Order Comment: 109 Performed By: #### L 100.0100 ####[facility] [address] [facility] [place], [place], [id number] Eosinophil percentageOrdered By: Renard Burgos on 11-04-2024 Eosinophils/100 WBC (Bld) 0.8 % 0-5 [facility] Erythrocyte distribution wid th ratioOrdered By: Renard Burgos on 11-04-2024 Erythrocyte distribution width (RBC) [Ratio] 13.3 % 11.6-14.6 [facility] Erythrocyte distribution wid th standard deviationOrdered By: Renard Burgos on 11-04-2024 Erythrocyte distribution width (RBC) [Ratio] 45.0 fl High 35.1-43.9 [facility] Hematocrit Auto (Bld) [Volum e fraction]Ordered By: Renard Burgos on 11-04-2024 Hematocrit (Bld) [Volume fraction] 42.8 % 40-54 [facility] Hemoglobin measurementOrdere d By: Renard Burgos on 11-04-2024 Hemoglobin (Bld) [Mass/Vol] 14.0 g/dL 13.0-16.5 [facility] Immature granulocytes/100 WB C Auto (Bld)Ordered By: Renard Burgos on 11-04-2024 Immature granulocytes/100 WBC (Bld) 0.400 % 0.0-0.9 [facility] Comment on above: IG% - Immature Granu locytes (promyelocytes, myelocytes and metamyelocytes) > 1% indicates that a LEFT SHIFT is Present. MCV (mean corpuscular volume ) determinationOrdered By: Renard Burgos on 11-04-2024 MCV (RBC) [Entitic vol] 92.4 fL 80-94 [facility] Mean corpuscular hemoglobin (MCH) determinationOrdered By: Renard Burgos on 11-04-2024 MCH (RBC) [Entitic mass] 30.2 pg 27.0-32.0 [facility] Mean corpuscular hemoglobin concentration (MCHC) determinationOrdered By: Renard Burgos on 11-04-2024 MCHC (RBC) [Mass/Vol] 32.7 g/dL 32-36 [facility] Mean platelet volume determi nationOrdered By: Renard Burgos on 11-04-2024 Platelet mean volume (Bld) [Entitic vol] 11.6 fL 6.2-12.0 [facility] Monocyte percentageOrdered B y: Renard Burgos on 11-04-2024 Monocytes/100 WBC (Bld) 8.4 % 0-10 [facility] Neutrophil percentageOrdered By: Renard Burgos on 11-04-2024 Neutrophils/100 WBC (Bld) 61.7 % 47-70 [facility] Nucleated red blood cell per centageOrdered By: Renard Burgos on 11-04-2024 Nucleated RBC/100 WBC (Bld) [Ratio] 0 % 0-5 [facility] Platelet countOrdered By: Garrick Bhatt on 11-04-2024 Platelet count TNP [facility] Comment on above: Test not performed Platelet estimateOrdered By: Renard Burgos on 11-04-2024 Platelets LM Ql (Bld) A ADEQ [facility] Platelet morphologyOrdered B y: Renard Burgos on 11-04-2024 Platelet morphology finding Nom (Bld) CLUMPED [facility] RBC Auto (Bld) [#/Vol]Ordere d By: Renard Burgos on 11-04-2024 RBC (Bld) [#/Vol] 4.63 10*6/uL 4.6-6.2 [facility] White blood cell (WBC) count Ordered By: Renard Burgos on 11-04-2024 WBC (Bld) [#/Vol] 7.8 10*3/uL 4.4-11.0 [facility] Absolute lymphocyte countOrd ered By: Renard Burgos on 10-28-2024 Lymphocytes Auto (Unsp spec) [#/Vol] 1.72 10*3/uL 0.83-4.51 [facility] Absolute neutrophil countOrd ered By: Renard Burgos on 10-28-2024 Neutrophils (Bld) [#/Vol] 5.0 10*3/uL 2.0-7.7 [facility] Automated lymphocyte count a s percentage of total leukocytesOrdered By: Renard Burgos on 10-28-2024 Lymphocytes/100 WBC Auto (Unsp spec) 22.9 % 19-41 [facility] Basophil percentageOrdered B y: Renard Burgos on 10-28-2024 Basophils/100 WBC (Bld) 0.7 % 0-1 [facility] CBC W/Diff, Automatedon 10-01 Absolute Lymph 1.72 X10 3/uL Normal 0.83-4.51 [facility] Comment on above: Order Comment: 109-1 Performed By: #### L 100.0100 ####[facility] [address] [place], [address] Absolute Neut 5.0 X10 3/uL Normal 2.0-7.7 [facility] Comment on above: Order Comment: 109-1 Performed By: #### L 100.0100 ####[facility] [address] [place], [address] Basophils/100 WBC (Bld) 0.7 % Normal 0-1 [facility] Comment on above: Order Comment: 109-1 Performed By: #### L 100.0100 ####[facility] [address] [place], [address] Eosinophils/100 WBC (Bld) 1.2 % Normal 0-5 [facility] Comment on above: Order Comment: 109-1 Performed By: #### L 100.0100 ####[facility] [address] [place], [address] Erythrocyte distribution width (RBC) [Ratio] 13.2 % Normal 11.6-14.6 [facility] Comment on above: Order Comment: 109-1 Performed By: #### L 100.0100 ####[facility] [address] [place], [address] Hematocrit (Bld) [Volume fraction] 37.3 % Low 40-54 [facility] Comment on above: Order Comment: 109-1 Performed By: #### L 100.0100 ####[facility] [address] [place], [address] Hemoglobin (Bld) [Mass/Vol] 12.3 g/dL Low 13.0-16.5 [facility] Comment on above: Order Comment: 109-1 Performed By: #### L 100.0100 ####[facility] [address] [place], [address] IG% 0.100 Normal 0.0-0.9 [facility] Comment on above: Order Comment: 109-1 Result Comment: IG% - Immature Granulocytes (promyelocytes, myelocytes andmetamyelocytes) > 1% indicates that a LEFT SHIFT is Present. Performed By: #### L 100.0100 ####[facility] [address] [place], [address] Lymphocytes/100 WBC (Bld) 22.9 % Normal 19-41 [facility] Comment on above: Order Comment: 109-1 Performed By: #### L 100.0100 ####[facility] [address] [place], [address] MCH (RBC) [Entitic mass] 30.1 pg Normal 27.0-32.0 [facility] Comment on above: Order Comment: 109-1 Performed By: #### L 100.0100 ####[facility] [address] [place], [address] MCHC (RBC) [Mass/Vol] 33.0 g/dL Normal 32-36 [facility] Comment on above: Order Comment: 109-1 Performed By: #### L 100.0100 ####[facility] [address] [place], [address] MCV (RBC) [Entitic vol] 91.4 fL Normal 80-94 [facility] Comment on above: Order Comment: 109-1 Performed By: #### L 100.0100 ####[facility] [address] [place], [address] Monocytes/100 WBC (Bld) 8.1 % Normal 0-10 [facility] Comment on above: Order Comment: 109-1 Performed By: #### L 100.0100 ####[facility] [address] [place], [address] Neutrophils/100 WBC (Bld) 67.0 % Normal 47-70 [facility] Comment on above: Order Comment: 109-1 Performed By: #### L 100.0100 ####[facility] [address] [place], [address] Nucleated RBC (Bld) [#/Vol] 0 10*3/uL Normal 0-5 [facility] Comment on above: Order Comment: 109-1 Performed By: #### L 100.0100 ####[facility] [address] [place], [address] Platelet mean volume (Bld) [Entitic vol] 11.3 fL Normal 6.2-12.0 [facility] Comment on above: Order Comment: 109-1 Performed By: #### L 100.0100 ####[facility] [address] [place], [address] Platelets (Bld) [#/Vol] 201 10*3/uL Normal 150-450 [facility] Comment on above: Order Comment: 109-1 Performed By: #### L 100.0100 ####[facility] [address] [place], [address] RBC (Bld) [#/Vol] 4.08 10*6/uL Low 4.6-6.2 [facility] Comment on above: Order Comment: 109-1 Performed By: #### L 100.0100 ####[facility] [address] [place], [address] RDW SD 44.0 fl High 35.1-43.9 [facility] Comment on above: Order Comment: 109-1 Performed By: #### L 100.0100 ####[facility] [address] [place], [address] WBC (Bld) [#/Vol] 7.5 10*3/uL Normal 4.4-11.0 [facility] Comment on above: Order Comment: 109-1 Performed By: #### L 100.0100 ####[facility] [address] [place], [address] Eosinophil percentageOrdered By: Renard Burgos on 10-28-2024 Eosinophils/100 WBC (Bld) 1.2 % 0-5 [facility] Erythrocyte distribution wid th ratioOrdered By: Renard Burgos on 10-28-2024 Erythrocyte distribution width (RBC) [Ratio] 13.2 % 11.6-14.6 [facility] Erythrocyte distribution wid th standard deviationOrdered By: Renard Burgos on 10-28-2024 Erythrocyte distribution width (RBC) [Ratio] 44.0 fl High 35.1-43.9 [facility] Hematocrit Auto (Bld) [Volum e fraction]Ordered By: Renard Burgos on 10-28-2024 Hematocrit (Bld) [Volume fraction] 37.3 % Low 40-54 [facility] Hemoglobin measurementOrdere d By: Renard Burgos on 10-28-2024 Hemoglobin (Bld) [Mass/Vol] 12.3 g/dL Low 13.0-16.5 [facility] Immature granulocytes/100 WB C Auto (Bld)Ordered By: Renard Burgos on 10-28-2024 Immature granulocytes/100 WBC (Bld) 0.100 % 0.0-0.9 [facility] Comment on above: IG% - Immature Granu locytes (promyelocytes, myelocytes and metamyelocytes) > 1% indicates that a LEFT SHIFT is Present. MCV (mean corpuscular volume ) determinationOrdered By: Renard Burgos on 10-28-2024 MCV (RBC) [Entitic vol] 91.4 fL 80-94 [facility] Mean corpuscular hemoglobin (MCH) determinationOrdered By: Renard Burgos on 10-28-2024 MCH (RBC) [Entitic mass] 30.1 pg 27.0-32.0 [facility] Mean corpuscular hemoglobin concentration (MCHC) determinationOrdered By: Renard Burgos on 10-28-2024 MCHC (RBC) [Mass/Vol] 33.0 g/dL 32-36 [facility] Mean platelet volume determi nationOrdered By: Renard Burgos on 10-28-2024 Platelet mean volume (Bld) [Entitic vol] 11.3 fL 6.2-12.0 [facility] Monocyte percentageOrdered B y: Renard Burgos on 10-28-2024 Monocytes/100 WBC (Bld) 8.1 % 0-10 [facility] Neutrophil percentageOrdered By: Renard Burgos on 10-28-2024 Neutrophils/100 WBC (Bld) 67.0 % 47-70 [facility] Nucleated red blood cell per centageOrdered By: Renard Burgos on 10-28-2024 Nucleated RBC/100 WBC (Bld) [Ratio] 0 % 0-5 [facility] Platelet countOrdered By: Garrick Bhatt on 10-28-2024 Platelets (Bld) [#/Vol] 201 10*3/uL 150-450 [facility] RBC Auto (Bld) [#/Vol]Ordere d By: Renard Burgos on 10-28-2024 RBC (Bld) [#/Vol] 4.08 10*6/uL Low 4.6-6.2 [facility] White blood cell (WBC) count Ordered By: Renard Burgos on 10-28-2024 WBC (Bld) [#/Vol] 7.5 10*3/uL 4.4-11.0 [facility] Absolute lymphocyte countOrd ered By: Renard Burgos on 10-21-2024 Lymphocytes Auto (Unsp spec) [#/Vol] 2.41 10*3/uL 0.83-4.51 [facility] Absolute neutrophil countOrd ered By: Renard Burgos on 10-21-2024 Neutrophils (Bld) [#/Vol] 5.2 10*3/uL 2.0-7.7 [facility] Automated lymphocyte count a s percentage of total leukocytesOrdered By: Renard Burgos on 10-21-2024 Lymphocytes/100 WBC Auto (Unsp spec) 28.2 % 19-41 [facility] Basophil percentageOrdered B y: Renard Burgos on 10-21-2024 Basophils/100 WBC (Bld) 0.6 % 0-1 [facility] CBC W/Diff, Automatedon 09-30 Absolute Lymph 2.41 X10 3/uL Normal 0.83-4.51 [facility] Comment on above: Order Comment: 109 Performed By: #### L 100.0100 ####[facility] [address] [place], [address] Absolute Neut 5.2 X10 3/uL Normal 2.0-7.7 [facility] Comment on above: Order Comment: 109 Performed By: #### L 100.0100 ####[facility] [address] [place], [address] Basophils/100 WBC (Bld) 0.6 % Normal 0-1 [facility] Comment on above: Order Comment: 109 Performed By: #### L 100.0100 ####[facility] [address] [place], [address] Eosinophils/100 WBC (Bld) 0.8 % Normal 0-5 [facility] Comment on above: Order Comment: 109 Performed By: #### L 100.0100 ####[facility] [address] [place], [address] Erythrocyte distribution width (RBC) [Ratio] 13.3 % Normal 11.6-14.6 [facility] Comment on above: Order Comment: 109 Performed By: #### L 100.0100 ####[facility] [address] [place], [address] Hematocrit (Bld) [Volume fraction] 38.9 % Low 40-54 [facility] Comment on above: Order Comment: 109 Performed By: #### L 100.0100 ####[facility] [address] [place], [address] Hemoglobin (Bld) [Mass/Vol] 12.8 g/dL Low 13.0-16.5 [facility] Comment on above: Order Comment: 109 Performed By: #### L 100.0100 ####[facility] [address] [place], [address] IG% 0.400 Normal 0.0-0.9 [facility] Comment on above: Order Comment: 109 Result Comment: IG% - Immature Granulocytes (promyelocytes, myelocytes andmetamyelocytes) > 1% indicates that a LEFT SHIFT is Present. Performed By: #### L 100.0100 ####[facility] [address] [place], [address] Lymphocytes/100 WBC (Bld) 28.2 % Normal 19-41 [facility] Comment on above: Order Comment: 109 Performed By: #### L 100.0100 ####[facility] [address] [place], [address] MCH (RBC) [Entitic mass] 30.1 pg Normal 27.0-32.0 [facility] Comment on above: Order Comment: 109 Performed By: #### L 100.0100 ####[facility] [address] [place], [address] MCHC (RBC) [Mass/Vol] 32.9 g/dL Normal 32-36 [facility] Comment on above: Order Comment: 109 Performed By: #### L 100.0100 ####[facility] [address] [place], [address] MCV (RBC) [Entitic vol] 91.5 fL Normal 80-94 [facility] Comment on above: Order Comment: 109 Performed By: #### L 100.0100 ####[facility] [address] [place], [address] Monocytes/100 WBC (Bld) 9.1 % Normal 0-10 [facility] Comment on above: Order Comment: 109 Performed By: #### L 100.0100 ####[facility] [address] [place], [address] Neutrophils/100 WBC (Bld) 60.9 % Normal 47-70 [facility] Comment on above: Order Comment: 109 Performed By: #### L 100.0100 ####[facility] [address] [place], [address] Nucleated RBC (Bld) [#/Vol] 0 10*3/uL Normal 0-5 [facility] Comment on above: Order Comment: 109 Performed By: #### L 100.0100 ####[facility] [address] [place], [address] Platelet mean volume (Bld) [Entitic vol] 11.2 fL Normal 6.2-12.0 [facility] Comment on above: Order Comment: 109 Performed By: #### L 100.0100 ####[facility] [address] [place], [address] Platelets (Bld) [#/Vol] 204 10*3/uL Normal 150-450 [facility] Comment on above: Order Comment: 109 Performed By: #### L 100.0100 ####[facility] [address] [place], [address] RBC (Bld) [#/Vol] 4.25 10*6/uL Low 4.6-6.2 [facility] Comment on above: Order Comment: 109 Performed By: #### L 100.0100 ####[facility] [address] [place], [address] RDW SD 44.5 fl High 35.1-43.9 [facility] Comment on above: Order Comment: 109 Performed By: #### L 100.0100 ####[facility] [address] [place], [address] WBC (Bld) [#/Vol] 8.5 10*3/uL Normal 4.4-11.0 [facility] Comment on above: Order Comment: 109 Performed By: #### L 100.0100 ####[facility] [address] [place], [place], [phone] Eosinophil percentageOrdered By: Renard Burgos on 10-21-2024 Eosinophils/100 WBC (Bld) 0.8 % 0-5 [facility] Erythrocyte distribution wid th ratioOrdered By: Renard Burgos on 10-21-2024 Erythrocyte distribution width (RBC) [Ratio] 13.3 % 11.6-14.6 [facility] Erythrocyte distribution wid th standard deviationOrdered By: Renard Burgos on 10-21-2024 Erythrocyte distribution width (RBC) [Ratio] 44.5 fl High 35.1-43.9 [facility] Hematocrit Auto (Bld) [Volum e fraction]Ordered By: Renard Burogs on 10-21-2024 Hematocrit (Bld) [Volume fraction] 38.9 % Low 40-54 [facility] Hemoglobin measurementOrdere d By: Renard Burgos on 10-21-2024 Hemoglobin (Bld) [Mass/Vol] 12.8 g/dL Low 13.0-16.5 [facility] Immature granulocytes/100 WB C Auto (Bld)Ordered By: Renard Burgos on 10-21-2024 Immature granulocytes/100 WBC (Bld) 0.400 % 0.0-0.9 [facility] Comment on above: IG% - Immature Granu locytes (promyelocytes, myelocytes and metamyelocytes) > 1% indicates that a LEFT SHIFT is Present. MCV (mean corpuscular volume ) determinationOrdered By: Renard Burgos on 10-21-2024 MCV (RBC) [Entitic vol] 91.5 fL 80-94 [facility] Mean corpuscular hemoglobin (MCH) determinationOrdered By: Renard Burgos on 10-21-2024 MCH (RBC) [Entitic mass] 30.1 pg 27.0-32.0 [facility] Mean corpuscular hemoglobin concentration (MCHC) determinationOrdered By: Renard Burgos on 10-21-2024 MCHC (RBC) [Mass/Vol] 32.9 g/dL 32-36 [facility] Mean platelet volume determi nationOrdered By: Renard Burgos on 10-21-2024 Platelet mean volume (Bld) [Entitic vol] 11.2 fL 6.2-12.0 [facility] Monocyte percentageOrdered B y: Renard Burgos on 10-21-2024 Monocytes/100 WBC (Bld) 9.1 % 0-10 [facility] Neutrophil percentageOrdered By: Renard Burgos on 10-21-2024 Neutrophils/100 WBC (Bld) 60.9 % 47-70 [facility] Nucleated red blood cell per centageOrdered By: Renard Burgos on 10-21-2024 Nucleated RBC/100 WBC (Bld) [Ratio] 0 % 0-5 [facility] Platelet countOrdered By: Garrick Bhatt on 10-21-2024 Platelets (Bld) [#/Vol] 204 10*3/uL 150-450 [facility] RBC Auto (Bld) [#/Vol]Ordere d By: Renard Burgos on 10-21-2024 RBC (Bld) [#/Vol] 4.25 10*6/uL Low 4.6-6.2 [facility] White blood cell (WBC) count Ordered By: Renard Burgos on 10-21-2024 WBC (Bld) [#/Vol] 8.5 10*3/uL 4.4-11.0 [facility] Absolute lymphocyte countOrd ered By: Renard Burgos on 10-14-2024 Lymphocytes Auto (Unsp spec) [#/Vol] 1.77 10*3/uL 0.83-4.51 [facility] Absolute neutrophil countOrd ered By: Renard Burgos on 10-14-2024 Neutrophils (Bld) [#/Vol] 4.8 10*3/uL 2.0-7.7 [facility] Automated lymphocyte count a s percentage of total leukocytesOrdered By: Renard Burgos on 10-14-2024 Lymphocytes/100 WBC Auto (Unsp spec) 24.2 % 19-41 [facility] Basophil percentageOrdered B y: Renard Burgos on 10-14-2024 Basophils/100 WBC (Bld) 0.7 % 0-1 [facility] CBC W/Diff, Automatedon 09-29 Absolute Lymph 1.77 X10 3/uL Normal 0.83-4.51 [facility] Comment on above: Order Comment: 109 Performed By: #### L 100.0100 ####[facility] [address] [facility] [address] Absolute Neut 4.8 X10 3/uL Normal 2.0-7.7 [facility] Comment on above: Order Comment: 109 Performed By: #### L 100.0100 ####[facility] [address] [facility] [address] Basophils/100 WBC (Bld) 0.7 % Normal 0-1 [facility] Comment on above: Order Comment: 109 Performed By: #### L 100.0100 ####[facility] [address] [place], [address] Eosinophils/100 WBC (Bld) 0.8 % Normal 0-5 [facility] Comment on above: Order Comment: 109 Performed By: #### L 100.0100 ####[facility] [address] [place], [address] Erythrocyte distribution width (RBC) [Ratio] 13.2 % Normal 11.6-14.6 [facility] Comment on above: Order Comment: 109 Performed By: #### L 100.0100 ####[facility] [address] [place], [address] Hematocrit (Bld) [Volume fraction] 42.7 % Normal 40-54 [facility] Comment on above: Order Comment: 109 Performed By: #### L 100.0100 ####[facility] [address] [place], [address] Hemoglobin (Bld) [Mass/Vol] 13.9 g/dL Normal 13.0-16.5 [facility] Comment on above: Order Comment: 109 Performed By: #### L 100.0100 ####[facility] [address] [place], [address] IG% 0.300 Normal 0.0-0.9 [facility] Comment on above: Order Comment: 109 Result Comment: IG% - Immature Granulocytes (promyelocytes, myelocytes andmetamyelocytes) > 1% indicates that a LEFT SHIFT is Present. Performed By: #### L 100.0100 ####[facility] [address] [place], [address] Lymphocytes/100 WBC (Bld) 24.2 % Normal 19-41 [facility] Comment on above: Order Comment: 109 Performed By: #### L 100.0100 ####[facility] [address] [place], [address] MCH (RBC) [Entitic mass] 29.7 pg Normal 27.0-32.0 [facility] Comment on above: Order Comment: 109 Performed By: #### L 100.0100 ####[facility] [address] [place], [address] MCHC (RBC) [Mass/Vol] 32.6 g/dL Normal 32-36 [facility] Comment on above: Order Comment: 109 Performed By: #### L 100.0100 ####[facility] [address] [place], [address] MCV (RBC) [Entitic vol] 91.2 fL Normal 80-94 [facility] Comment on above: Order Comment: 109 Performed By: #### L 100.0100 ####[facility] [address] [place], [address] Monocytes/100 WBC (Bld) 8.6 % Normal 0-10 [facility] Comment on above: Order Comment: 109 Performed By: #### L 100.0100 ####[facility] [address] [place], [address] Neutrophils/100 WBC (Bld) 65.4 % Normal 47-70 [facility] Comment on above: Order Comment: 109 Performed By: #### L 100.0100 ####[facility] [address] [place], [address] Nucleated RBC (Bld) [#/Vol] 0 10*3/uL Normal 0-5 [facility] Comment on above: Order Comment: 109 Performed By: #### L 100.0100 ####[facility] [address] [place], [address] Platelet mean volume (Bld) [Entitic vol] 11.1 fL Normal 6.2-12.0 [facility] Comment on above: Order Comment: 109 Performed By: #### L 100.0100 ####[facility] [address] [place], [address] Platelets (Bld) [#/Vol] 232 10*3/uL Normal 150-450 [facility] Comment on above: Order Comment: 109 Performed By: #### L 100.0100 ####[facility] [address] [place], [address] RBC (Bld) [#/Vol] 4.68 10*6/uL Normal 4.6-6.2 [facility] Comment on above: Order Comment: 109 Performed By: #### L 100.0100 ####[facility] [address] [place], [address] RDW SD 44.1 fl High 35.1-43.9 [facility] Comment on above: Order Comment: 109 Performed By: #### L 100.0100 ####[facility] [address] [place], [address] WBC (Bld) [#/Vol] 7.3 10*3/uL Normal 4.4-11.0 [facility] Comment on above: Order Comment: 109 Performed By: #### L 100.0100 ####[facility] [address] [place], [address] Eosinophil percentageOrdered By: Renard Burgos on 10-14-2024 Eosinophils/100 WBC (Bld) 0.8 % 0-5 [facility] Erythrocyte distribution wid th ratioOrdered By: Renard Burgos on 10-14-2024 Erythrocyte distribution width (RBC) [Ratio] 13.2 % 11.6-14.6 [facility] Erythrocyte distribution wid th standard deviationOrdered By: Renard Burgos on 10-14-2024 Erythrocyte distribution width (RBC) [Ratio] 44.1 fl High 35.1-43.9 [facility] Hematocrit Auto (Bld) [Volum e fraction]Ordered By: Renard Burgos on 10-14-2024 Hematocrit (Bld) [Volume fraction] 42.7 % 40-54 [facility] Hemoglobin measurementOrdere d By: Renard Burgos on 10-14-2024 Hemoglobin (Bld) [Mass/Vol] 13.9 g/dL 13.0-16.5 [facility] Immature granulocytes/100 WB C Auto (Bld)Ordered By: Renard Burgos on 10-14-2024 Immature granulocytes/100 WBC (Bld) 0.300 % 0.0-0.9 [facility] Comment on above: IG% - Immature Granu locytes (promyelocytes, myelocytes and metamyelocytes) > 1% indicates that a LEFT SHIFT is Present. MCV (mean corpuscular volume ) determinationOrdered By: Renard Burgos on 10-14-2024 MCV (RBC) [Entitic vol] 91.2 fL 80-94 [facility] Mean corpuscular hemoglobin (MCH) determinationOrdered By: Renard Burgos on 10-14-2024 MCH (RBC) [Entitic mass] 29.7 pg 27.0-32.0 [facility] Mean corpuscular hemoglobin concentration (MCHC) determinationOrdered By: Renard Burgos on 10-14-2024 MCHC (RBC) [Mass/Vol] 32.6 g/dL 32-36 [facility] Mean platelet volume determi nationOrdered By: Renard Burgos on 10-14-2024 Platelet mean volume (Bld) [Entitic vol] 11.1 fL 6.2-12.0 [facility] Monocyte percentageOrdered B y: Renard Burgos on 10-14-2024 Monocytes/100 WBC (Bld) 8.6 % 0-10 [facility] Neutrophil percentageOrdered By: Renard Burgos on 10-14-2024 Neutrophils/100 WBC (Bld) 65.4 % 47-70 [facility] Nucleated red blood cell per centageOrdered By: Renard Burgos on 10-14-2024 Nucleated RBC/100 WBC (Bld) [Ratio] 0 % 0-5 [facility] Platelet countOrdered By: Garrick Bhatt on 10-14-2024 Platelets (Bld) [#/Vol] 232 10*3/uL 150-450 [facility] RBC Auto (Bld) [#/Vol]Ordere d By: Renard Burgos on 10-14-2024 RBC (Bld) [#/Vol] 4.68 10*6/uL 4.6-6.2 [facility] White blood cell (WBC) count Ordered By: Renard Burgos on 10-14-2024 WBC (Bld) [#/Vol] 7.3 10*3/uL 4.4-11.0 [facility] Absolute lymphocyte countOrd ered By: Renard Burgos on 10-07-2024 Lymphocytes Auto (Unsp spec) [#/Vol] 2.20 10*3/uL 0.83-4.51 [facility] Absolute neutrophil countOrd ered By: Renard Burgos on 10-07-2024 Neutrophils (Bld) [#/Vol] 5.1 10*3/uL 2.0-7.7 [facility] Automated lymphocyte count a s percentage of total leukocytesOrdered By: Renard Burgos on 10-07-2024 Lymphocytes/100 WBC Auto (Unsp spec) 27.2 % 19-41 [facility] Basophil percentageOrdered B y: Renard Burgos on 10-07-2024 Basophils/100 WBC (Bld) 0.5 % 0-1 [facility] CBC W/Diff, Automatedon Absolute Lymph 2.20 X10 3/uL Normal 0.83-4.51 [facility] Comment on above: Order Comment: 109-1 Performed By: #### L 100.0100 ####[facility] [address] [place], [address] Absolute Neut 5.1 X10 3/uL Normal 2.0-7.7 [facility] Comment on above: Order Comment: 109-1 Performed By: #### L 100.0100 ####[facility] [address] [place], [address] Basophils/100 WBC (Bld) 0.5 % Normal 0-1 [facility] Comment on above: Order Comment: 109-1 Performed By: #### L 100.0100 ####[facility] [address] [place], [address] Eosinophils/100 WBC (Bld) 0.9 % Normal 0-5 [facility] Comment on above: Order Comment: 109-1 Performed By: #### L 100.0100 ####[facility] [facility] [address] [place], [address] Erythrocyte distribution width (RBC) [Ratio] 13.2 % Normal 11.6-14.6 [facility] Comment on above: Order Comment: 109-1 Performed By: #### L 100.0100 ####[facility] [address] [place], [address] Hematocrit (Bld) [Volume fraction] 40.8 % Normal 40-54 [facility] Comment on above: Order Comment: 109-1 Performed By: #### L 100.0100 ####[facility] [address] [place], [address] Hemoglobin (Bld) [Mass/Vol] 13.8 g/dL Normal 13.0-16.5 [facility] Comment on above: Order Comment: 109-1 Performed By: #### L 100.0100 ####[facility] [address] [place], [address] IG% 0.200 Normal 0.0-0.9 [facility] Comment on above: Order Comment: 109-1 Result Comment: IG% - Immature Granulocytes (promyelocytes, myelocytes andmetamyelocytes) > 1% indicates that a LEFT SHIFT is Present. Performed By: #### L 100.0100 ####[facility] [address] [place], [address] Lymphocytes/100 WBC (Bld) 27.2 % Normal 19-41 [facility] Comment on above: Order Comment: 109-1 Performed By: #### L 100.0100 ####[facility] [address] [place], [address] MCH (RBC) [Entitic mass] 30.0 pg Normal 27.0-32.0 [facility] Comment on above: Order Comment: 109-1 Performed By: #### L 100.0100 ####[facility] [address] [place], [address] MCHC (RBC) [Mass/Vol] 33.8 g/dL Normal 32-36 [facility] Comment on above: Order Comment: 109-1 Performed By: #### L 100.0100 ####[facility] [address] [place], [address] MCV (RBC) [Entitic vol] 88.7 fL Normal 80-94 [facility] Comment on above: Order Comment: 109-1 Performed By: #### L 100.0100 ####[facility] [address] [place], [address] Monocytes/100 WBC (Bld) 8.4 % Normal 0-10 [facility] Comment on above: Order Comment: 109-1 Performed By: #### L 100.0100 ####[facility] [address] [place], [address] Neutrophils/100 WBC (Bld) 62.8 % Normal 47-70 [facility] Comment on above: Order Comment: 109-1 Performed By: #### L 100.0100 ####[facility] [address] [place], [address] Nucleated RBC (Bld) [#/Vol] 0 10*3/uL Normal 0-5 [facility] Comment on above: Order Comment: 109-1 Performed By: #### L 100.0100 ####[facility] [address] [place], [address] Platelet mean volume (Bld) [Entitic vol] 11.2 fL Normal 6.2-12.0 [facility] Comment on above: Order Comment: 109-1 Performed By: #### L 100.0100 ####[facility] [address] [place], [address] Platelets (Bld) [#/Vol] 214 10*3/uL Normal 150-450 [facility] Comment on above: Order Comment: 109-1 Performed By: #### L 100.0100 ####[facility] [address] [place], [address] RBC (Bld) [#/Vol] 4.60 10*6/uL Normal 4.6-6.2 [facility] Comment on above: Order Comment: 109-1 Performed By: #### L 100.0100 ####[facility] [address] [place], [address] RDW SD 43.0 fl Normal 35.1-43.9 [facility] Comment on above: Order Comment: 109-1 Performed By: #### L 100.0100 ####[facility] [address] [place], [address] WBC (Bld) [#/Vol] 8.1 10*3/uL Normal 4.4-11.0 [facility] Comment on above: Order Comment: 109-1 Performed By: #### L 100.0100 ####[facility] [address] [place], [address] Eosinophil percentageOrdered By: Renard Burgos on 10-07-2024 Eosinophils/100 WBC (Bld) 0.9 % 0-5 [facility] Erythrocyte distribution wid th ratioOrdered By: Renard Burgos on 10-07-2024 Erythrocyte distribution width (RBC) [Ratio] 13.2 % 11.6-14.6 [facility] Erythrocyte distribution wid th standard deviationOrdered By: Renard Burgos on 10-07-2024 Erythrocyte distribution width (RBC) [Ratio] 43.0 fl 35.1-43.9 [facility] Hematocrit Auto (Bld) [Volum e fraction]Ordered By: Renard Burgos on 10-07-2024 Hematocrit (Bld) [Volume fraction] 40.8 % 40-54 [facility] Hemoglobin measurementOrdere d By: Renard Burgos on 10-07-2024 Hemoglobin (Bld) [Mass/Vol] 13.8 g/dL 13.0-16.5 [facility] Immature granulocytes/100 WB C Auto (Bld)Ordered By: Renard Burgos on 10-07-2024 Immature granulocytes/100 WBC (Bld) 0.200 % 0.0-0.9 [facility] Comment on above: IG% - Immature Granu locytes (promyelocytes, myelocytes and metamyelocytes) > 1% indicates that a LEFT SHIFT is Present. MCV (mean corpuscular volume ) determinationOrdered By: Renard Burgos on 10-07-2024 MCV (RBC) [Entitic vol] 88.7 fL 80-94 [facility] Mean corpuscular hemoglobin (MCH) determinationOrdered By: Renard Burgos on 10-07-2024 MCH (RBC) [Entitic mass] 30.0 pg 27.0-32.0 [facility] Mean corpuscular hemoglobin concentration (MCHC) determinationOrdered By: Renard Burgos on 10-07-2024 MCHC (RBC) [Mass/Vol] 33.8 g/dL 32-36 [facility] Mean platelet volume determi nationOrdered By: Renard Burgos on 10-07-2024 Platelet mean volume (Bld) [Entitic vol] 11.2 fL 6.2-12.0 [facility] Monocyte percentageOrdered B y: Renard Burgos on 10-07-2024 Monocytes/100 WBC (Bld) 8.4 % 0-10 [facility] Neutrophil percentageOrdered By: Renard Burgos on 10-07-2024 Neutrophils/100 WBC (Bld) 62.8 % 47-70 [facility] Nucleated red blood cell per centageOrdered By: Renard Burgos on 10-07-2024 Nucleated RBC/100 WBC (Bld) [Ratio] 0 % 0-5 [facility] Platelet countOrdered By: Garrick Bhatt on 10-07-2024 Platelets (Bld) [#/Vol] 214 10*3/uL 150-450 [facility] RBC Auto (Bld) [#/Vol]Ordere d By: Renard Burgos on 10-07-2024 RBC (Bld) [#/Vol] 4.60 10*6/uL 4.6-6.2 [facility] White blood cell (WBC) count Ordered By: Renard Burgos on 10-07-2024 WBC (Bld) [#/Vol] 8.1 10*3/uL 4.4-11.0 [facility] Absolute lymphocyte countOrd ered By: Renard Hensleydiego on 09-30-2024 Lymphocytes Auto (Unsp spec) [#/Vol] 3.13 10*3/uL 0.83-4.51 [facility] Absolute neutrophil countOrd ered By: Renard Burgos on 09-30-2024 Neutrophils (Bld) [#/Vol] 5.6 10*3/uL 2.0-7.7 [facility] Automated lymphocyte count a s percentage of total leukocytesOrdered By: Renard Burgos on 09-30-2024 Lymphocytes/100 WBC Auto (Unsp spec) 31.7 % 19-41 [facility] Basophil percentageOrdered B y: Renard Burgos on 09-30-2024 Basophils/100 WBC (Bld) 0.6 % 0-1 [facility] CBC W/Diff, Automatedon Absolute Lymph 3.13 X10 3/uL Normal 0.83-4.51 [facility] Comment on above: Order Comment: 109-1 Performed By: #### L 100.0100 ####[facility] [address] [facility] [place], [address] Absolute Neut 5.6 X10 3/uL Normal 2.0-7.7 [facility] Comment on above: Order Comment: 109-1 Performed By: #### L 100.0100 ####[facility] [address] [place], [address] Basophils/100 WBC (Bld) 0.6 % Normal 0-1 [facility] Comment on above: Order Comment: 109-1 Performed By: #### L 100.0100 ####[facility] [address] [place], [address] Eosinophils/100 WBC (Bld) 0.7 % Normal 0-5 [facility] Comment on above: Order Comment: 109-1 Performed By: #### L 100.0100 ####[facility] [address] [place], [address] Erythrocyte distribution width (RBC) [Ratio] 13.0 % Normal 11.6-14.6 [facility] Comment on above: Order Comment: 109-1 Performed By: #### L 100.0100 ####[facility] [address] [place], [address] Hematocrit (Bld) [Volume fraction] 46.9 % Normal 40-54 [facility] Comment on above: Order Comment: 109-1 Performed By: #### L 100.0100 ####[facility] [address] [place], [address] Hemoglobin (Bld) [Mass/Vol] 15.3 g/dL Normal 13.0-16.5 [facility] Comment on above: Order Comment: 109-1 Performed By: #### L 100.0100 ####[facility] [address] [place], [address] IG% 0.300 Normal 0.0-0.9 [facility] Comment on above: Order Comment: 109-1 Result Comment: IG% - Immature Granulocytes (promyelocytes, myelocytes andmetamyelocytes) > 1% indicates that a LEFT SHIFT is Present. Performed By: #### L 100.0100 ####[facility] [address] [place], [address] Lymphocytes/100 WBC (Bld) 31.7 % Normal 19-41 [facility] Comment on above: Order Comment: 109-1 Performed By: #### L 100.0100 ####[facility] [address] [place], [address] MCH (RBC) [Entitic mass] 29.7 pg Normal 27.0-32.0 [facility] Comment on above: Order Comment: 109-1 Performed By: #### L 100.0100 ####[facility] [address] [place], [address] MCHC (RBC) [Mass/Vol] 32.6 g/dL Normal 32-36 [facility] Comment on above: Order Comment: 109-1 Performed By: #### L 100.0100 ####[facility] [address] [place], [address] MCV (RBC) [Entitic vol] 91.1 fL Normal 80-94 [facility] Comment on above: Order Comment: 109-1 Performed By: #### L 100.0100 ####[facility] [address] [place], [address] Monocytes/100 WBC (Bld) 10.4 % High 0-10 [facility] Comment on above: Order Comment: 109-1 Performed By: #### L 100.0100 ####[facility] [address] [place], [address] Neutrophils/100 WBC (Bld) 56.3 % Normal 47-70 [facility] Comment on above: Order Comment: 109-1 Performed By: #### L 100.0100 ####[facility] [address] [place], [address] Nucleated RBC (Bld) [#/Vol] 0 10*3/uL Normal 0-5 [facility] Comment on above: Order Comment: 109-1 Performed By: #### L 100.0100 ####[facility] [address] [place], [address] Platelet mean volume (Bld) [Entitic vol] 11.7 fL Normal 6.2-12.0 [facility] Comment on above: Order Comment: 109-1 Performed By: #### L 100.0100 ####[facility] [address] [place], [address] Platelets (Bld) [#/Vol] 208 10*3/uL Normal 150-450 [facility] Comment on above: Order Comment: 109-1 Performed By: #### L 100.0100 ####[facility] [address] [place], [address] RBC (Bld) [#/Vol] 5.15 10*6/uL Normal 4.6-6.2 [facility] Comment on above: Order Comment: 109-1 Performed By: #### L 100.0100 ####[facility] [address] [place], [address] RDW SD 42.7 fl Normal 35.1-43.9 [facility] Comment on above: Order Comment: 109-1 Performed By: #### L 100.0100 ####[facility] [address] [place], [address] WBC (Bld) [#/Vol] 9.9 10*3/uL Normal 4.4-11.0 [facility] Comment on above: Order Comment: 109-1 Performed By: #### L 100.0100 ####[facility] [address] [place], [address] Eosinophil percentageOrdered By: Renard Burgos on 09-30-2024 Eosinophils/100 WBC (Bld) 0.7 % 0-5 [facility] Erythrocyte distribution wid th ratioOrdered By: Renard Burgos on 09-30-2024 Erythrocyte distribution width (RBC) [Ratio] 13.0 % 11.6-14.6 [facility] Erythrocyte distribution wid th standard deviationOrdered By: Renard Burgos on 09-30-2024 Erythrocyte distribution width (RBC) [Ratio] 42.7 fl 35.1-43.9 [facility] Hematocrit Auto (Bld) [Volum e fraction]Ordered By: Renard Burgos on 09-30-2024 Hematocrit (Bld) [Volume fraction] 46.9 % 40-54 [facility] Hemoglobin measurementOrdere d By: Renard Burgos on 09-30-2024 Hemoglobin (Bld) [Mass/Vol] 15.3 g/dL 13.0-16.5 [facility] Immature granulocytes/100 WB C Auto (Bld)Ordered By: Renard Burgos on 09-30-2024 Immature granulocytes/100 WBC (Bld) 0.300 % 0.0-0.9 [facility] Comment on above: IG% - Immature Granu locytes (promyelocytes, myelocytes and metamyelocytes) > 1% indicates that a LEFT SHIFT is Present. MCV (mean corpuscular volume ) determinationOrdered By: Renard Burgos on 09-30-2024 MCV (RBC) [Entitic vol] 91.1 fL 80-94 [facility] Mean corpuscular hemoglobin (MCH) determinationOrdered By: Renard Burgos on 09-30-2024 MCH (RBC) [Entitic mass] 29.7 pg 27.0-32.0 [facility] Mean corpuscular hemoglobin concentration (MCHC) determinationOrdered By: Renard Burgos on 09-30-2024 MCHC (RBC) [Mass/Vol] 32.6 g/dL 32-36 [facility] Mean platelet volume determi nationOrdered By: Renard Burgos on 09-30-2024 Platelet mean volume (Bld) [Entitic vol] 11.7 fL 6.2-12.0 [facility] Monocyte percentageOrdered B y: Renard Burgos on 09-30-2024 Monocytes/100 WBC (Bld) 10.4 % High 0-10 [facility] Neutrophil percentageOrdered By: Renard Burgos on 09-30-2024 Neutrophils/100 WBC (Bld) 56.3 % 47-70 [facility] Nucleated red blood cell per centageOrdered By: Renard Burgos on 09-30-2024 Nucleated RBC/100 WBC (Bld) [Ratio] 0 % 0-5 [facility] Platelet countOrdered By: Garrick Bhatt on 09-30-2024 Platelets (Bld) [#/Vol] 208 10*3/uL 150-450 [facility] RBC Auto (Bld) [#/Vol]Ordere d By: Renard Burgos on 09-30-2024 RBC (Bld) [#/Vol] 5.15 10*6/uL 4.6-6.2 [facility] White blood cell (WBC) count Ordered By: Renard Burgos on 09-30-2024 WBC (Bld) [#/Vol] 9.9 10*3/uL 4.4-11.0 [facility] Absolute lymphocyte countOrd ered By: Renard Burgos on 09-24-2024 Lymphocytes Auto (Unsp spec) [#/Vol] 1.97 10*3/uL 0.83-4.51 [facility] Absolute neutrophil countOrd ered By: Renard Burgos on 09-24-2024 Neutrophils (Bld) [#/Vol] 6.8 10*3/uL 2.0-7.7 [facility] Automated blood erythrocyte countOrdered By: Renard Burgos on 09-24-2024 RBC (Bld) [#/Vol] 4.48 10*6/uL Low 4.6-6.2 [facility] Comment on above: Order Comment: 109 Performed By: #### L 100.0100 ####[facility] [address] [place], [place], [address] Automated blood hematocrit ( percentage)Ordered By: Renard Burgos on 09-24-2024 Hematocrit (Bld) [Volume fraction] 40.4 % Normal 40-54 [facility] Comment on above: Order Comment: 109 Performed By: #### L 100.0100 ####[facility] [address] [place], [place], [id number] Automated lymphocyte count a s percentage of total leukocytesOrdered By: Renard Burgos on 09-24-2024 Lymphocytes/100 WBC Auto (Unsp spec) 20.5 % 19-41 [facility] Basophil percentageOrdered B y: Renard Burgos on 09-24-2024 Basophils/100 WBC (Bld) 0.5 % Normal 0-1 [facility] Comment on above: Order Comment: 109 Performed By: #### L 100.0100 ####[facility] [address] [place], [place], [address] CBC W/Diff, Automatedon 08-30 Absolute Lymph 1.97 X10 3/uL Normal 0.83-4.51 [facility] Comment on above: Order Comment: 109 Performed By: #### L 100.0100 ####[facility] [address] [place], [address] Absolute Neut 6.8 X10 3/uL Normal 2.0-7.7 [facility] Comment on above: Order Comment: 109 Performed By: #### L 100.0100 ####[facility] [address] [place], [address] IG% 0.300 Normal 0.0-0.9 [facility] Comment on above: Order Comment: 109 Result Comment: IG% - Immature Granulocytes (promyelocytes, myelocytes andmetamyelocytes) > 1% indicates that a LEFT SHIFT is Present. Performed By: #### L 100.0100 ####[facility] [address] [place], [address] Lymphocytes/100 WBC (Bld) 20.5 % Normal 19-41 [facility] Comment on above: Order Comment: 109 Performed By: #### L 100.0100 ####[facility] [address] [place], [address] Nucleated RBC (Bld) [#/Vol] 0 10*3/uL Normal 0-5 [facility] Comment on above: Order Comment: 109 Performed By: #### L 100.0100 ####[facility] [address] [place], [address] RDW SD 42.9 fl Normal 35.1-43.9 [facility] Comment on above: Order Comment: 109 Performed By: #### L 100.0100 ####[facility] [address] [place], [address] Eosinophil percentageOrdered By: Renard Burgos on 09-24-2024 Eosinophils/100 WBC (Bld) 0.5 % Normal 0-5 [facility] Comment on above: Order Comment: 109 Performed By: #### L 100.0100 ####[facility] [address] [place], [place], [phone] Erythrocyte distribution wid th ratioOrdered By: Renard Burgos on 09-24-2024 Erythrocyte distribution width (RBC) [Ratio] 13.1 % Normal 11.6-14.6 [facility] Comment on above: Order Comment: 109 Performed By: #### L 100.0100 ####[facility] [address] [place], [place], [phone]) Erythrocyte distribution wid th standard deviationOrdered By: Renard Burgos on 09-24-2024 Erythrocyte distribution width (RBC) [Ratio] 42.9 fl 35.1-43.9 [facility] Hemoglobin measurementOrdere d By: Renard Burgos on 09-24-2024 Hemoglobin (Bld) [Mass/Vol] 13.4 g/dL Normal 13.0-16.5 [facility] Comment on above: Order Comment: 109 Performed By: #### L 100.0100 ####[facility] [address] [place], [place], [phone] Immature granulocytes/100 WB C Auto (Bld)Ordered By: Renard Burgos on 09-24-2024 Immature granulocytes/100 WBC (Bld) 0.300 % 0.0-0.9 [facility] Comment on above: IG% - Immature Granu locytes (promyelocytes, myelocytes and metamyelocytes) > 1% indicates that a LEFT SHIFT is Present. MCV (mean corpuscular volume ) determinationOrdered By: Renard Burgos on 09-24-2024 MCV (RBC) [Entitic vol] 90.2 fL Normal 80-94 [facility] Comment on above: Order Comment: 109 Performed By: #### L 100.0100 ####[facility] [address] [place], [place], [phone] Mean corpuscular hemoglobin (MCH) determinationOrdered By: Renard Burgos on 09-24-2024 MCH (RBC) [Entitic mass] 29.9 pg Normal 27.0-32.0 [facility] Comment on above: Order Comment: 109 Performed By: #### L 100.0100 ####[facility] [address] [place], [address] Mean corpuscular hemoglobin concentration (MCHC) determinationOrdered By: Renard Burgos on 09-24-2024 MCHC (RBC) [Mass/Vol] 33.2 g/dL Normal 32-36 [facility] Comment on above: Order Comment: 109 Performed By: #### L 100.0100 ####[facility] [address] [place], [address] Mean platelet volume determi nationOrdered By: Renard Burgos on 09-24-2024 Platelet mean volume (Bld) [Entitic vol] 11.3 fL Normal 6.2-12.0 [facility] Comment on above: Order Comment: 109 Performed By: #### L 100.0100 ####[facility] [address] [place], [address] Monocyte percentageOrdered B y: Renard Burgos on 09-24-2024 Monocytes/100 WBC (Bld) 7.2 % Normal 0-10 [facility] Comment on above: Order Comment: 109 Performed By: #### L 100.0100 ####[facility] [address] [place], [address] Neutrophil percentageOrdered By: Renard Burgos on 09-24-2024 Neutrophils/100 WBC (Bld) 71.0 % High 47-70 [facility] Comment on above: Order Comment: 109 Performed By: #### L 100.0100 ####[facility] [address] [place], [address] Nucleated red blood cell per centageOrdered By: Renard Burgos on 09-24-2024 Nucleated RBC/100 WBC (Bld) [Ratio] 0 % 0-5 [facility] Platelet countOrdered By: Garrick Bhatt on 09-24-2024 Platelets (Bld) [#/Vol] 187 10*3/uL Normal 150-450 [facility] Comment on above: Order Comment: 109 Performed By: #### L 100.0100 ####[facility] [address] [place], [address] White blood cell (WBC) count Ordered By: Renard Burgos on 09-24-2024 WBC (Bld) [#/Vol] 9.6 10*3/uL Normal 4.4-11.0 [facility] Comment on above: Order Comment: 109 Performed By: #### L 100.0100 ####[facility] [address] [place], [address] Absolute lymphocyte countOrd ered By: Renard Burgos on 09-16-2024 Lymphocytes Auto (Unsp spec) [#/Vol] 2.44 10*3/uL 0.83-4.51 [facility] Absolute neutrophil countOrd ered By: Renard Burgos on 09-16-2024 Neutrophils (Bld) [#/Vol] 5.5 10*3/uL 2.0-7.7 [facility] Automated lymphocyte count a s percentage of total leukocytesOrdered By: Renard Burgos on 09-16-2024 Lymphocytes/100 WBC Auto (Unsp spec) 27.7 % - [facility] Basophil percentageOrdered B y: Renard Burgos on 09-16-2024 Basophils/100 WBC (Bld) 0.8 % 0-1 [facility] CBC W/Diff, Automatedon 08-29 Absolute Lymph 2.44 X10 3/uL Normal 0.83-4.51 [facility] Comment on above: Order Comment: 109.1 Performed By: #### L 100.0100 ####[facility] [address] [place], [address] Absolute Neut 5.5 X10 3/uL Normal 2.0-7.7 [facility] Comment on above: Order Comment: 109.1 Performed By: #### L 100.0100 ####[facility] [address] [place], [address] Basophils/100 WBC (Bld) 0.8 % Normal 0-1 [facility] Comment on above: Order Comment: 109.1 Performed By: #### L 100.0100 ####[facility] [address] [place], [address] Eosinophils/100 WBC (Bld) 0.7 % Normal 0-5 [facility] Comment on above: Order Comment: 109.1 Performed By: #### L 100.0100 ####[facility] [address] [place], [address] Erythrocyte distribution width (RBC) [Ratio] 13.1 % Normal 11.6-14.6 [facility] Comment on above: Order Comment: 109.1 Performed By: #### L 100.0100 ####[facility] [address] [place], [address] Hematocrit (Bld) [Volume fraction] 46.8 % Normal 40-54 [facility] Comment on above: Order Comment: 109.1 Performed By: #### L 100.0100 ####[facility] [address] [place], [address] Hemoglobin (Bld) [Mass/Vol] 15.4 g/dL Normal 13.0-16.5 [facility] Comment on above: Order Comment: 109.1 Performed By: #### L 100.0100 ####[facility] [address] [place], [address] IG% 0.200 Normal 0.0-0.9 [facility] Comment on above: Order Comment: 109.1 Result Comment: IG% - Immature Granulocytes (promyelocytes, myelocytes andmetamyelocytes) > 1% indicates that a LEFT SHIFT is Present. Performed By: #### L 100.0100 ####[facility] [address] [place], [address] Lymphocytes/100 WBC (Bld) 27.7 % Normal 19-41 [facility] Comment on above: Order Comment: 109.1 Performed By: #### L 100.0100 ####[facility] [address] [place], [address] MCH (RBC) [Entitic mass] 30.1 pg Normal 27.0-32.0 [facility] Comment on above: Order Comment: 109.1 Performed By: #### L 100.0100 ####[facility] [address] [place], [address] MCHC (RBC) [Mass/Vol] 32.9 g/dL Normal 32-36 [facility] Comment on above: Order Comment: 109.1 Performed By: #### L 100.0100 ####[facility] [address] [place], [address] MCV (RBC) [Entitic vol] 91.4 fL Normal 80-94 [facility] Comment on above: Order Comment: 109.1 Performed By: #### L 100.0100 ####[facility] [address] [place], [address] Monocytes/100 WBC (Bld) 8.5 % Normal 0-10 [facility] Comment on above: Order Comment: 109.1 Performed By: #### L 100.0100 ####[facility] [address] [place], [address] Neutrophils/100 WBC (Bld) 62.1 % Normal 47-70 [facility] Comment on above: Order Comment: 109.1 Performed By: #### L 100.0100 ####[facility] [address] [place], [address] Nucleated RBC (Bld) [#/Vol] 0 10*3/uL Normal 0-5 [facility] Comment on above: Order Comment: 109.1 Performed By: #### L 100.0100 ####[facility] [address] [place], [address] Platelet mean volume (Bld) [Entitic vol] 10.6 fL Normal 6.2-12.0 [facility] Comment on above: Order Comment: 109.1 Performed By: #### L 100.0100 ####[facility] [address] [place], [address] Platelets (Bld) [#/Vol] 190 10*3/uL Normal 150-450 [facility] Comment on above: Order Comment: 109.1 Performed By: #### L 100.0100 ####[facility] [address] [place], [address] RBC (Bld) [#/Vol] 5.12 10*6/uL Normal 4.6-6.2 [facility] Comment on above: Order Comment: 109.1 Performed By: #### L 100.0100 ####[facility] [address] [place], [address] RDW SD 43.3 fl Normal 35.1-43.9 [facility] Comment on above: Order Comment: 109.1 Performed By: #### L 100.0100 ####[facility] [address] [place], [address] WBC (Bld) [#/Vol] 8.8 10*3/uL Normal 4.4-11.0 [facility] Comment on above: Order Comment: 109.1 Performed By: #### L 100.0100 ####[facility] [address] [place], [address] Eosinophil percentageOrdered By: Renard Burgos on 09-16-2024 Eosinophils/100 WBC (Bld) 0.7 % 0-5 [facility] Erythrocyte distribution wid th ratioOrdered By: Renard Burgos on 09-16-2024 Erythrocyte distribution width (RBC) [Ratio] 13.1 % 11.6-14.6 [facility] Erythrocyte distribution wid th standard deviationOrdered By: Renard Burgos on 09-16-2024 Erythrocyte distribution width (RBC) [Ratio] 43.3 fl 35.1-43.9 [facility] Hematocrit Auto (Bld) [Volum e fraction]Ordered By: Renard Burgos on 09-16-2024 Hematocrit (Bld) [Volume fraction] 46.8 % 40-54 [facility] Hemoglobin measurementOrdere d By: Renard Burgos on 09-16-2024 Hemoglobin (Bld) [Mass/Vol] 15.4 g/dL 13.0-16.5 [facility] Immature granulocytes/100 WB C Auto (Bld)Ordered By: Renard Burgos on 09-16-2024 Immature granulocytes/100 WBC (Bld) 0.200 % 0.0-0.9 [facility] Comment on above: IG% - Immature Granu locytes (promyelocytes, myelocytes and metamyelocytes) > 1% indicates that a LEFT SHIFT is Present. MCV (mean corpuscular volume ) determinationOrdered By: Renard Burgos on 09-16-2024 MCV (RBC) [Entitic vol] 91.4 fL 80-94 [facility] Mean corpuscular hemoglobin (MCH) determinationOrdered By: Renard Burgos on 09-16-2024 MCH (RBC) [Entitic mass] 30.1 pg 27.0-32.0 [facility] Mean corpuscular hemoglobin concentration (MCHC) determinationOrdered By: Renard Burgos on 09-16-2024 MCHC (RBC) [Mass/Vol] 32.9 g/dL 32-36 [facility] Mean platelet volume determi nationOrdered By: Renard Burgos on 09-16-2024 Platelet mean volume (Bld) [Entitic vol] 10.6 fL 6.2-12.0 [facility] Monocyte percentageOrdered B y: Renard Burgos on 09-16-2024 Monocytes/100 WBC (Bld) 8.5 % 0-10 [facility] Neutrophil percentageOrdered By: Renard Burgos on 09-16-2024 Neutrophils/100 WBC (Bld) 62.1 % 47-70 [facility] Nucleated red blood cell per centageOrdered By: Renard Burgos on 09-16-2024 Nucleated RBC/100 WBC (Bld) [Ratio] 0 % 0-5 [facility] Platelet countOrdered By: Garrick Bhatt on 09-16-2024 Platelets (Bld) [#/Vol] 190 10*3/uL 150-450 [facility] RBC Auto (Bld) [#/Vol]Ordere d By: Renard Burgos on 09-16-2024 RBC (Bld) [#/Vol] 5.12 10*6/uL 4.6-6.2 [facility] White blood cell (WBC) count Ordered By: Renard Burgos on 09-16-2024 WBC (Bld) [#/Vol] 8.8 10*3/uL 4.4-11.0 [facility] Anion gap in Serum or Plasma Ordered By: Renard Burgos on 09-11-2024 Anion gap [Moles/Vol] 11 mmol/L 5-15 [facility] Automated blood erythrocyte countOrdered By: Renard Burgos on 09-11-2024 RBC (Bld) [#/Vol] 4.67 10*6/uL Normal 4.6-6.2 [facility] Comment on above: Order Comment: 109-1 Performed By: #### L 100.0500, L500.2500 ####[facility] [address] [place], [place], [id number] Automated blood hematocrit ( percentage)Ordered By: Renard Burgos on 09-11-2024 Hematocrit (Bld) [Volume fraction] 42.7 % Normal 40-54 [facility] Comment on above: Order Comment: 109-1 Performed By: #### L 100.0500, L500.2500 ####[facility] [address] [place], [address] BUN/creatinine ratioOrdered By: Renard Burgos on 09-11-2024 Urea nitrogen/Creatinine [Mass ratio] 23.0 mg/mg High 10-20 [facility] Basic Metabolic Profile (BMP )on 09-11-2024 BUN/CRE 23.0 RATIO High 10-20 [facility] Comment on above: Order Comment: 109-1 Performed By: #### L 100.0500, L500.2500 ####[facility] [address] [place], [address] Calcium [Mass/Vol] 8.7 mg/dL Normal 7.6-11.0 [facility] Comment on above: Order Comment: 109-1 Performed By: #### L 100.0500, L500.2500 ####[facility] [address] [place], [address] Chloride [Moles/Vol] 104 mmol/L Normal 98-108 [facility] Comment on above: Order Comment: 109-1 Performed By: #### L 100.0500, L500.2500 ####[facility] [address] [place], [address] CO2 [Moles/Vol] 25.9 mmol/L Normal 21.0-32.0 [facility] Comment on above: Order Comment: 109-1 Performed By: #### L 100.0500, L500.2500 ####[facility] [address] [place], [address] Creatinine [Mass/Vol] 0.58 mg/dL Low 0.70-1.20 [facility] Comment on above: Order Comment: 109-1 Performed By: #### L 100.0500, L500.2500 ####[facility] [address] [place], [address] GAP 11 Normal 5-15 [facility] Comment on above: Order Comment: 109-1 Performed By: #### L 100.0500, L500.2500 ####[facility] [address] [place], [address] GFR/1.73 sq M.predicted among non-blacks MDRD (S/P/Bld) [Vol rate/Area] 107 mL/min/{1.73_m2} Normal >60 [facility] Comment on above: Order Comment: 109-1 Result Comment: mL/m in/1.73m2 CKD-EPI Creatinine Equation (2020) Performed By: #### L 100.0500, L500.2500 ####[facility] [address] [place], [address] Glucose [Mass/Vol] 113 mg/dL High 70-99 [facility] Comment on above: Order Comment: 109-1 Performed By: #### L 100.0500, L500.2500 ####[facility] [address] [place], [address] Potassium [Moles/Vol] 3.8 mmol/L Normal 3.3-5.1 [facility] Comment on above: Order Comment: 109-1 Performed By: #### L 100.0500, L500.2500 ####[facility] [address] [place], [address] Sodium [Moles/Vol] 141 mmol/L Normal 133-145 [facility] Comment on above: Order Comment: 109-1 Performed By: #### L 100.0500, L500.2500 ####[facility] [address] [place], [address] Urea nitrogen [Mass/Vol] 13 mg/dL Normal 4-19 [facility] Comment on above: Order Comment: 109-1 Performed By: #### L 100.0500, L500.2500 ####[facility] [address] [place], [address] CBC-Complete Blood Cnt No Di ffon 09-11-2024 RDW SD 43.7 fl Normal 35.1-43.9 [facility] Comment on above: Order Comment: 109-1 Performed By: #### L 100.0500, L500.2500 ####[facility] [address] [place], [address] Carbon dioxide, total [Moles /volume] in Central venous bloodOrdered By: Renard Burgos on 09-11-2024 CO2 [Moles/Vol] 25.9 mmol/L 21.0-32.0 [facility] Chloride assayOrdered By: Garrick Bhatt on 09-11-2024 Chloride [Moles/Vol] 104 mmol/L 98-108 [facility] Erythrocyte distribution wid th ratioOrdered By: Renard Burgos on 09-11-2024 Erythrocyte distribution width (RBC) [Ratio] 13.2 % Normal 11.6-14.6 [facility] Comment on above: Order Comment: 109-1 Performed By: #### L 100.0500, L500.2500 ####[facility] [address] [place], [address] Erythrocyte distribution wid th standard deviationOrdered By: Renard Burgos on 09-11-2024 Erythrocyte distribution width (RBC) [Ratio] 43.7 fl 35.1-43.9 [facility] Glomerular filtration rate ( GFR) estimation/1.73 sq m using serum, plasma, or whole bOrdered By: Renard Burgos on 09-11-2024 GFR/1.73 sq M.predicted among non-blacks MDRD (S/P/Bld) [Vol rate/Area] 107 mL/min/{1.73_m2} >60 [facility] Comment on above: mL/min/1.73m2 CKD-EP I Creatinine Equation (2020) Hemoglobin measurementOrdere d By: Renard Burgos on 09-11-2024 Hemoglobin (Bld) [Mass/Vol] 14.0 g/dL Normal 13.0-16.5 [facility] Comment on above: Order Comment: 109-1 Performed By: #### L 100.0500, L500.2500 ####[facility] [address] [place], [address] MCV (mean corpuscular volume ) determinationOrdered By: Renard Burgos on 09-11-2024 MCV (RBC) [Entitic vol] 91.4 fL Normal 80-94 [facility] Comment on above: Order Comment: 109-1 Performed By: #### L 100.0500, L500.2500 ####[facility] [address] [place], [address] Mean corpuscular hemoglobin (MCH) determinationOrdered By: Renard Burgos on 09-11-2024 MCH (RBC) [Entitic mass] 30.0 pg Normal 27.0-32.0 [facility] Comment on above: Order Comment: 109-1 Performed By: #### L 100.0500, L500.2500 ####[facility] [address] [place], [address] Mean corpuscular hemoglobin concentration (MCHC) determinationOrdered By: Renard Burgos on 09-11-2024 MCHC (RBC) [Mass/Vol] 32.8 g/dL Normal 32-36 [facility] Comment on above: Order Comment: 109-1 Performed By: #### L 100.0500, L500.2500 ####[facility] [address] [place], [address] Mean platelet volume determi nationOrdered By: Renard Burgos on 09-11-2024 Platelet mean volume (Bld) [Entitic vol] 11.3 fL Normal 6.2-12.0 [facility] Comment on above: Order Comment: 109-1 Performed By: #### L 100.0500, L500.2500 ####[facility] [address] [place], [address] Platelet countOrdered By: Garrick Bhatt on 09-11-2024 Platelets (Bld) [#/Vol] 191 10*3/uL Normal 150-450 [facility] Comment on above: Order Comment: 109-1 Performed By: #### L 100.0500, L500.2500 ####[facility] [address] [place], [address] Potassium measurement (mass/ volume)Ordered By: Renard Burgos on 09-11-2024 Potassium (Unsp spec) [Mass/Vol] 3.8 mmol/L 3.3-5.1 [facility] Serum creatinine measurement (mass/volume)Ordered By: Renard Burgos on 09-11-2024 Creatinine [Mass/Vol] 0.58 mg/dL Low 0.70-1.20 [facility] Serum glucose measurement (m ass/volume)Ordered By: Renard Burgos on 09-11-2024 Glucose [Mass/Vol] 113 mg/dL High 70-99 [facility] Serum or plasma calcium gordy urement (mass/volume)Ordered By: Renard Burgos on 09-11-2024 Calcium [Mass/Vol] 8.7 mg/dL 7.6-11.0 [facility] Serum or plasma urea nitroge n measurement (mass/volume)Ordered By: Renard Burgos on 09-11-2024 Urea nitrogen [Mass/Vol] 13 mg/dL 4-19 [facility] Sodium levelOrdered By: Lamine Burgos on 09-11-2024 Sodium [Moles/Vol] 141 mmol/L 133-145 [facility] White blood cell (WBC) count Ordered By: Renard Burgos on 09-11-2024 WBC (Bld) [#/Vol] 7.6 10*3/uL Normal 4.4-11.0 [facility] Comment on above: Order Comment: 109-1 Performed By: #### L 100.0500, L500.2500 ####[facility] [address] [place], [address] Absolute lymphocyte countOrd ered By: Renard Burgos on 09-09-2024 Lymphocytes Auto (Unsp spec) [#/Vol] 2.24 10*3/uL 0.83-4.51 [facility] Absolute neutrophil countOrd ered By: Renard Burgos on 09-09-2024 Neutrophils (Bld) [#/Vol] 8.7 10*3/uL High 2.0-7.7 [facility] Automated lymphocyte count a s percentage of total leukocytesOrdered By: Renard Burgos on 09-09-2024 Lymphocytes/100 WBC Auto (Unsp spec) 19.1 % 19-41 [facility] Basophil percentageOrdered B y: Renard Burgos on 09-09-2024 Basophils/100 WBC (Bld) 0.4 % 0-1 [facility] CBC W/Diff, Automatedon 08-29 Absolute Lymph 2.24 X10 3/uL Normal 0.83-4.51 [facility] Comment on above: Order Comment: 109-1 Performed By: #### L 100.0100 ####[facility] [address] [place], [address] Absolute Neut 8.7 X10 3/uL High 2.0-7.7 [facility] Comment on above: Order Comment: 109-1 Performed By: #### L 100.0100 ####[facility] [address] [place], [address] Basophils/100 WBC (Bld) 0.4 % Normal 0-1 [facility] Comment on above: Order Comment: 109-1 Performed By: #### L 100.0100 ####[facility] [address] [place], [address] Eosinophils/100 WBC (Bld) 0.5 % Normal 0-5 [facility] Comment on above: Order Comment: 109-1 Performed By: #### L 100.0100 ####[facility] [address] [place], [address] Erythrocyte distribution width (RBC) [Ratio] 13.0 % Normal 11.6-14.6 [facility] Comment on above: Order Comment: 109-1 Performed By: #### L 100.0100 ####[facility] [address] [place], [address] Hematocrit (Bld) [Volume fraction] 44.7 % Normal 40-54 [facility] Comment on above: Order Comment: 109-1 Performed By: #### L 100.0100 ####[facility] [address] [place], [address] Hemoglobin (Bld) [Mass/Vol] 14.6 g/dL Normal 13.0-16.5 [facility] Comment on above: Order Comment: 109-1 Performed By: #### L 100.0100 ####[facility] [address] [place], [address] IG% 0.300 Normal 0.0-0.9 [facility] Comment on above: Order Comment: 109-1 Result Comment: IG% - Immature Granulocytes (promyelocytes, myelocytes andmetamyelocytes) > 1% indicates that a LEFT SHIFT is Present. Performed By: #### L 100.0100 ####[facility] [address] [place], [address] Lymphocytes/100 WBC (Bld) 19.1 % Normal 19-41 [facility] Comment on above: Order Comment: 109-1 Performed By: #### L 100.0100 ####[facility] [address] [place], [address] MCH (RBC) [Entitic mass] 30.1 pg Normal 27.0-32.0 [facility] Comment on above: Order Comment: 109-1 Performed By: #### L 100.0100 ####[facility] [address] [place], [address] MCHC (RBC) [Mass/Vol] 32.7 g/dL Normal 32-36 [facility] Comment on above: Order Comment: 109-1 Performed By: #### L 100.0100 ####[facility] [address] [place], [address] MCV (RBC) [Entitic vol] 92.2 fL Normal 80-94 [facility] Comment on above: Order Comment: 109-1 Performed By: #### L 100.0100 ####[facility] [address] [place], [address] Monocytes/100 WBC (Bld) 5.1 % Normal 0-10 [facility] Comment on above: Order Comment: 109-1 Performed By: #### L 100.0100 ####[facility] [address] [place], [address] Neutrophils/100 WBC (Bld) 74.6 % High 47-70 [facility] Comment on above: Order Comment: 109-1 Performed By: #### L 100.0100 ####[facility] [address] [place], [address] Nucleated RBC (Bld) [#/Vol] 0 10*3/uL Normal 0-5 [facility] Comment on above: Order Comment: 109-1 Performed By: #### L 100.0100 ####[facility] [address] [place], [address] Platelet mean volume (Bld) [Entitic vol] 11.6 fL Normal 6.2-12.0 [facility] Comment on above: Order Comment: 109-1 Performed By: #### L 100.0100 ####[facility] [address] [place], [address] Platelets (Bld) [#/Vol] 189 10*3/uL Normal 150-450 [facility] Comment on above: Order Comment: 109-1 Performed By: #### L 100.0100 ####[facility] [address] [place], [address] RBC (Bld) [#/Vol] 4.85 10*6/uL Normal 4.6-6.2 [facility] Comment on above: Order Comment: 109-1 Performed By: #### L 100.0100 ####[facility] [address] [place], [address] RDW SD 43.8 fl Normal 35.1-43.9 [facility] Comment on above: Order Comment: 109-1 Performed By: #### L 100.0100 ####[facility] [address] [place], [address] WBC (Bld) [#/Vol] 11.7 10*3/uL High 4.4-11.0 [facility] Comment on above: Order Comment: 109-1 Performed By: #### L 100.0100 ####[facility] [address] [place], [address] Eosinophil percentageOrdered By: Renard Burgos on 09-09-2024 Eosinophils/100 WBC (Bld) 0.5 % 0-5 [facility] Erythrocyte distribution wid th ratioOrdered By: Renard Burgos on 09-09-2024 Erythrocyte distribution width (RBC) [Ratio] 13.0 % 11.6-14.6 [facility] Erythrocyte distribution wid th standard deviationOrdered By: Renard Burgos on 09-09-2024 Erythrocyte distribution width (RBC) [Ratio] 43.8 fl 35.1-43.9 [facility] Hematocrit Auto (Bld) [Volum e fraction]Ordered By: Renard Burgos on 09-09-2024 Hematocrit (Bld) [Volume fraction] 44.7 % 40-54 [facility] Hemoglobin measurementOrdere d By: Renard Burgos on 09-09-2024 Hemoglobin (Bld) [Mass/Vol] 14.6 g/dL 13.0-16.5 [facility] Immature granulocytes/100 WB C Auto (Bld)Ordered By: Renard Burgos on 09-09-2024 Immature granulocytes/100 WBC (Bld) 0.300 % 0.0-0.9 [facility] Comment on above: IG% - Immature Granu locytes (promyelocytes, myelocytes and metamyelocytes) > 1% indicates that a LEFT SHIFT is Present. MCV (mean corpuscular volume ) determinationOrdered By: Renard Burgos on 09-09-2024 MCV (RBC) [Entitic vol] 92.2 fL 80-94 [facility] Mean corpuscular hemoglobin (MCH) determinationOrdered By: Renard Burgos on 09-09-2024 MCH (RBC) [Entitic mass] 30.1 pg 27.0-32.0 [facility] Mean corpuscular hemoglobin concentration (MCHC) determinationOrdered By: Renard Burgos on 09-09-2024 MCHC (RBC) [Mass/Vol] 32.7 g/dL 32-36 [facility] Mean platelet volume determi nationOrdered By: Renard Burgos on 09-09-2024 Platelet mean volume (Bld) [Entitic vol] 11.6 fL 6.2-12.0 [facility] Monocyte percentageOrdered B y: Renard Burgos on 09-09-2024 Monocytes/100 WBC (Bld) 5.1 % 0-10 [facility] Neutrophil percentageOrdered By: Renard Burgos on 09-09-2024 Neutrophils/100 WBC (Bld) 74.6 % High 47-70 [facility] Nucleated red blood cell per centageOrdered By: Renard Burgos on 09-09-2024 Nucleated RBC/100 WBC (Bld) [Ratio] 0 % 0-5 [facility] Platelet countOrdered By: Garrick Bhatt on 09-09-2024 Platelets (Bld) [#/Vol] 189 10*3/uL 150-450 [facility] RBC Auto (Bld) [#/Vol]Ordere d By: Renard Burgos on 09-09-2024 RBC (Bld) [#/Vol] 4.85 10*6/uL 4.6-6.2 [facility] White blood cell (WBC) count Ordered By: Renard Burgos on 09-09-2024 WBC (Bld) [#/Vol] 11.7 10*3/uL High 4.4-11.0 [facility] Absolute lymphocyte countOrd ered By: Renard Burgos on 09-02-2024 Lymphocytes Auto (Unsp spec) [#/Vol] 2.07 10*3/uL 0.83-4.51 [facility] Absolute neutrophil countOrd ered By: Renard Burgos on 09-02-2024 Neutrophils (Bld) [#/Vol] 5.8 10*3/uL 2.0-7.7 [facility] Automated lymphocyte count a s percentage of total leukocytesOrdered By: Renard Burgos on 09-02-2024 Lymphocytes/100 WBC Auto (Unsp spec) 24.4 % 19-41 [facility] Basophil percentageOrdered B y: Renard Burgos on 09-02-2024 Basophils/100 WBC (Bld) 0.6 % 0-1 [facility] CBC W/Diff, Automatedon -2024 Absolute Lymph 2.07 X10 3/uL Normal 0.83-4.51 [facility] Comment on above: Order Comment: 109 Performed By: #### L 100.0100 ####[facility] [address] [place], [address] Absolute Neut 5.8 X10 3/uL Normal 2.0-7.7 [facility] Comment on above: Order Comment: 109 Performed By: #### L 100.0100 ####[facility] [address] [place], [address] Basophils/100 WBC (Bld) 0.6 % Normal 0-1 [facility] Comment on above: Order Comment: 109 Performed By: #### L 100.0100 ####[facility] [address] [place], [address] Eosinophils/100 WBC (Bld) 0.7 % Normal 0-5 [facility] Comment on above: Order Comment: 109 Performed By: #### L 100.0100 ####[facility] [address] [place], [address] Erythrocyte distribution width (RBC) [Ratio] 12.8 % Normal 11.6-14.6 [facility] Comment on above: Order Comment: 109 Performed By: #### L 100.0100 ####[facility] [address] [place], [address] Hematocrit (Bld) [Volume fraction] 44.5 % Normal 40-54 [facility] Comment on above: Order Comment: 109 Performed By: #### L 100.0100 ####[facility] [address] [place], [address] Hemoglobin (Bld) [Mass/Vol] 14.9 g/dL Normal 13.0-16.5 [facility] Comment on above: Order Comment: 109 Performed By: #### L 100.0100 ####[facility] [address] [place], [address] IG% 0.400 Normal 0.0-0.9 [facility] Comment on above: Order Comment: 109 Result Comment: IG% - Immature Granulocytes (promyelocytes, myelocytes andmetamyelocytes) > 1% indicates that a LEFT SHIFT is Present. Performed By: #### L 100.0100 ####[facility] [address] [place], [address] Lymphocytes/100 WBC (Bld) 24.4 % Normal 19-41 [facility] Comment on above: Order Comment: 109 Performed By: #### L 100.0100 ####[facility] [address] [place], [address] MCH (RBC) [Entitic mass] 29.9 pg Normal 27.0-32.0 [facility] Comment on above: Order Comment: 109 Performed By: #### L 100.0100 ####[facility] [address] [place], [address] MCHC (RBC) [Mass/Vol] 33.5 g/dL Normal 32-36 [facility] Comment on above: Order Comment: 109 Performed By: #### L 100.0100 ####[facility] [address] [place], [address] MCV (RBC) [Entitic vol] 89.4 fL Normal 80-94 [facility] Comment on above: Order Comment: 109 Performed By: #### L 100.0100 ####[facility] [address] [place], [address] Monocytes/100 WBC (Bld) 5.4 % Normal 0-10 [facility] Comment on above: Order Comment: 109 Performed By: #### L 100.0100 ####[facility] [address] [place], [address] Neutrophils/100 WBC (Bld) 68.5 % Normal 47-70 [facility] Comment on above: Order Comment: 109 Performed By: #### L 100.0100 ####[facility] [address] [place], [address] Nucleated RBC (Bld) [#/Vol] 0 10*3/uL Normal 0-5 [facility] Comment on above: Order Comment: 109 Performed By: #### L 100.0100 ####[facility] [address] [place], [address] Platelet mean volume (Bld) [Entitic vol] 10.7 fL Normal 6.2-12.0 [facility] Comment on above: Order Comment: 109 Performed By: #### L 100.0100 ####[facility] [address] [place], [address] Platelets (Bld) [#/Vol] 189 10*3/uL Normal 150-450 [facility] Comment on above: Order Comment: 109 Performed By: #### L 100.0100 ####[facility] [address] [place], [address] RBC (Bld) [#/Vol] 4.98 10*6/uL Normal 4.6-6.2 [facility] Comment on above: Order Comment: 109 Performed By: #### L 100.0100 ####[facility] [address] [place], [address] RDW SD 41.7 fl Normal 35.1-43.9 [facility] Comment on above: Order Comment: 109 Performed By: #### L 100.0100 ####[facility] [address] [place], [address] WBC (Bld) [#/Vol] 8.5 10*3/uL Normal 4.4-11.0 [facility] Comment on above: Order Comment: 109 Performed By: #### L 100.0100 ####[facility] [address] [place], [address] Eosinophil percentageOrdered By: Renard Burgos on 09-02-2024 Eosinophils/100 WBC (Bld) 0.7 % 0-5 [facility] Erythrocyte distribution wid th ratioOrdered By: Renard Burgos on 09-02-2024 Erythrocyte distribution width (RBC) [Ratio] 12.8 % 11.6-14.6 [facility] Erythrocyte distribution wid th standard deviationOrdered By: Renard Burgos on 09-02-2024 Erythrocyte distribution width (RBC) [Ratio] 41.7 fl 35.1-43.9 [facility] Hematocrit Auto (Bld) [Volum e fraction]Ordered By: Renard Burgos on 09-02-2024 Hematocrit (Bld) [Volume fraction] 44.5 % 40-54 [facility] Hemoglobin measurementOrdere d By: Renard Burgos on 09-02-2024 Hemoglobin (Bld) [Mass/Vol] 14.9 g/dL 13.0-16.5 [facility] Immature granulocytes/100 WB C Auto (Bld)Ordered By: Renard Burgos on 09-02-2024 Immature granulocytes/100 WBC (Bld) 0.400 % 0.0-0.9 [facility] Comment on above: IG% - Immature Granu locytes (promyelocytes, myelocytes and metamyelocytes) > 1% indicates that a LEFT SHIFT is Present. MCV (mean corpuscular volume ) determinationOrdered By: Renard Burgos on 09-02-2024 MCV (RBC) [Entitic vol] 89.4 fL 80-94 [facility] Mean corpuscular hemoglobin (MCH) determinationOrdered By: Renard Burgos on 09-02-2024 MCH (RBC) [Entitic mass] 29.9 pg 27.0-32.0 [facility] Mean corpuscular hemoglobin concentration (MCHC) determinationOrdered By: Renard Burgos on 09-02-2024 MCHC (RBC) [Mass/Vol] 33.5 g/dL 32-36 [facility] Mean platelet volume determi nationOrdered By: Renard Burgos on 09-02-2024 Platelet mean volume (Bld) [Entitic vol] 10.7 fL 6.2-12.0 [facility] Monocyte percentageOrdered B y: Renard Burgos on 09-02-2024 Monocytes/100 WBC (Bld) 5.4 % 0-10 [facility] Neutrophil percentageOrdered By: Renard Burgos on 09-02-2024 Neutrophils/100 WBC (Bld) 68.5 % 47-70 [facility] Nucleated red blood cell per centageOrdered By: Renard Burgos on 09-02-2024 Nucleated RBC/100 WBC (Bld) [Ratio] 0 % 0-5 [facility] Platelet countOrdered By: Garrick Bhatt on 09-02-2024 Platelets (Bld) [#/Vol] 189 10*3/uL 150-450 [facility] RBC Auto (Bld) [#/Vol]Ordere d By: Renard Burgos on 09-02-2024 RBC (Bld) [#/Vol] 4.98 10*6/uL 4.6-6.2 [facility] White blood cell (WBC) count Ordered By: Renard Burgos on 09-02-2024 WBC (Bld) [#/Vol] 8.5 10*3/uL 4.4-11.0 [facility] Absolute lymphocyte countOrd ered By: Renard Burgos on 08-26-2024 Lymphocytes Auto (Unsp spec) [#/Vol] 2.17 10*3/uL 0.83-4.51 [facility] Absolute neutrophil countOrd ered By: Renard Burgos on 08-26-2024 Neutrophils (Bld) [#/Vol] 5.7 10*3/uL 2.0-7.7 [facility] Automated lymphocyte count a s percentage of total leukocytesOrdered By: Renard Burgos on 08-26-2024 Lymphocytes/100 WBC Auto (Unsp spec) 25.1 % 19-41 [facility] Basophil percentageOrdered B y: Renard Burgos on 08-26-2024 Basophils/100 WBC (Bld) 0.6 % 0-1 [facility] CBC W/Diff, Automatedon - Absolute Lymph 2.17 X10 3/uL Normal 0.83-4.51 [facility] Comment on above: Order Comment: 109-1 Performed By: #### L 100.0100 ####[facility] [address] [place], [address] Absolute Neut 5.7 X10 3/uL Normal 2.0-7.7 [facility] Comment on above: Order Comment: 109-1 Performed By: #### L 100.0100 ####[facility] [address] [place], [address] Basophils/100 WBC (Bld) 0.6 % Normal 0-1 [facility] Comment on above: Order Comment: 109-1 Performed By: #### L 100.0100 ####[facility] [address] [place], [address] Eosinophils/100 WBC (Bld) 0.8 % Normal 0-5 [facility] Comment on above: Order Comment: 109-1 Performed By: #### L 100.0100 ####[facility] [address] [place], [address] Erythrocyte distribution width (RBC) [Ratio] 12.7 % Normal 11.6-14.6 [facility] Comment on above: Order Comment: 109-1 Performed By: #### L 100.0100 ####[facility] [address] [place], [address] Hematocrit (Bld) [Volume fraction] 41.8 % Normal 40-54 [facility] Comment on above: Order Comment: 109-1 Performed By: #### L 100.0100 ####[facility] [address] [place], [address] Hemoglobin (Bld) [Mass/Vol] 13.8 g/dL Normal 13.0-16.5 [facility] Comment on above: Order Comment: 109-1 Performed By: #### L 100.0100 ####[facility] [address] [place], [address] IG% 0.200 Normal 0.0-0.9 [facility] Comment on above: Order Comment: 109-1 Result Comment: IG% - Immature Granulocytes (promyelocytes, myelocytes andmetamyelocytes) > 1% indicates that a LEFT SHIFT is Present. Performed By: #### L 100.0100 ####[facility] [address] [place], [address] Lymphocytes/100 WBC (Bld) 25.1 % Normal 19-41 [facility] Comment on above: Order Comment: 109-1 Performed By: #### L 100.0100 ####[facility] [address] [place], [address] MCH (RBC) [Entitic mass] 29.7 pg Normal 27.0-32.0 [facility] Comment on above: Order Comment: 109-1 Performed By: #### L 100.0100 ####[facility] [address] [place], [address] MCHC (RBC) [Mass/Vol] 33.0 g/dL Normal 32-36 [facility] Comment on above: Order Comment: 109-1 Performed By: #### L 100.0100 ####[facility] [address] [place], [address] MCV (RBC) [Entitic vol] 90.1 fL Normal 80-94 [facility] Comment on above: Order Comment: 109-1 Performed By: #### L 100.0100 ####[facility] [address] [place], [address] Monocytes/100 WBC (Bld) 7.4 % Normal 0-10 [facility] Comment on above: Order Comment: 109-1 Performed By: #### L 100.0100 ####[facility] [address] [place], [address] Neutrophils/100 WBC (Bld) 65.9 % Normal 47-70 [facility] Comment on above: Order Comment: 109-1 Performed By: #### L 100.0100 ####[facility] [address] [place], [address] Nucleated RBC (Bld) [#/Vol] 0 10*3/uL Normal 0-5 [facility] Comment on above: Order Comment: 109-1 Performed By: #### L 100.0100 ####[facility] [address] [place], [address] Platelet mean volume (Bld) [Entitic vol] 11.3 fL Normal 6.2-12.0 [facility] Comment on above: Order Comment: 109-1 Performed By: #### L 100.0100 ####[facility] [address] [place], [address] Platelets (Bld) [#/Vol] 196 10*3/uL Normal 150-450 [facility] Comment on above: Order Comment: 109-1 Performed By: #### L 100.0100 ####[facility] [address] [place], [address] RBC (Bld) [#/Vol] 4.64 10*6/uL Normal 4.6-6.2 [facility] Comment on above: Order Comment: 109-1 Performed By: #### L 100.0100 ####[facility] [address] [place], [address] RDW SD 41.3 fl Normal 35.1-43.9 [facility] Comment on above: Order Comment: 109-1 Performed By: #### L 100.0100 ####[facility] [address] [place], [place], [address] WBC (Bld) [#/Vol] 8.6 10*3/uL Normal 4.4-11.0 [facility] Comment on above: Order Comment: 109-1 Performed By: #### L 100.0100 ####[facility] [address] [place], [place], [address] Eosinophil percentageOrdered By: Renard Burgos on 08-26-2024 Eosinophils/100 WBC (Bld) 0.8 % 0-5 [facility] Erythrocyte distribution wid th ratioOrdered By: Renard Burgos on 08-26-2024 Erythrocyte distribution width (RBC) [Ratio] 12.7 % 11.6-14.6 [facility] Erythrocyte distribution wid th standard deviationOrdered By: Renard Burgos on 08-26-2024 Erythrocyte distribution width (RBC) [Ratio] 41.3 fl 35.1-43.9 [facility] Hematocrit Auto (Bld) [Volum e fraction]Ordered By: Renard Burgos on 08-26-2024 Hematocrit (Bld) [Volume fraction] 41.8 % 40-54 [facility] Hemoglobin measurementOrdere d By: Renard Burgos on 08-26-2024 Hemoglobin (Bld) [Mass/Vol] 13.8 g/dL 13.0-16.5 [facility] Immature granulocytes/100 WB C Auto (Bld)Ordered By: Renard Burgos on 08-26-2024 Immature granulocytes/100 WBC (Bld) 0.200 % 0.0-0.9 [facility] Comment on above: IG% - Immature Granu locytes (promyelocytes, myelocytes and metamyelocytes) > 1% indicates that a LEFT SHIFT is Present. MCV (mean corpuscular volume ) determinationOrdered By: Renard Burgos on 08-26-2024 MCV (RBC) [Entitic vol] 90.1 fL 80-94 [facility] Mean corpuscular hemoglobin (MCH) determinationOrdered By: Renard Burgos on 08-26-2024 MCH (RBC) [Entitic mass] 29.7 pg 27.0-32.0 [facility] Mean corpuscular hemoglobin concentration (MCHC) determinationOrdered By: Renard Burgos on 08-26-2024 MCHC (RBC) [Mass/Vol] 33.0 g/dL 32-36 [facility] Mean platelet volume determi nationOrdered By: Renard Burgos on 08-26-2024 Platelet mean volume (Bld) [Entitic vol] 11.3 fL 6.2-12.0 [facility] Monocyte percentageOrdered B y: Renard Burgos on 08-26-2024 Monocytes/100 WBC (Bld) 7.4 % 0-10 [facility] Neutrophil percentageOrdered By: Renard Burgos on 08-26-2024 Neutrophils/100 WBC (Bld) 65.9 % 47-70 [facility] Nucleated red blood cell per centageOrdered By: Renard Burgos on 08-26-2024 Nucleated RBC/100 WBC (Bld) [Ratio] 0 % 0-5 [facility] Platelet countOrdered By: Garrick Bhatt on 08-26-2024 Platelets (Bld) [#/Vol] 196 10*3/uL 150-450 [facility] RBC Auto (Bld) [#/Vol]Ordere d By: Renard Burgos on 08-26-2024 RBC (Bld) [#/Vol] 4.64 10*6/uL 4.6-6.2 [facility] White blood cell (WBC) count Ordered By: Renard Burgos on 08-26-2024 WBC (Bld) [#/Vol] 8.6 10*3/uL 4.4-11.0 [facility] Anion gap in Serum or Plasma Ordered By: Renard Burgos on 08-23-2024 Anion gap [Moles/Vol] 10 mmol/L 5-15 [facility] BUN/creatinine ratioOrdered By: Renard Burgos on 08-23-2024 Urea nitrogen/Creatinine [Mass ratio] 21.4 mg/mg High 10-20 [facility] Bilirubin, totalOrdered By: Renard Burgos on 08-23-2024 Bilirubin [Mass/Vol] 0.35 mg/dL 0.00-1.30 [facility] CBC-Complete Blood Cnt No Di ffon 08-23-2024 Erythrocyte distribution width (RBC) [Ratio] 12.7 % Normal 11.6-14.6 [facility] Comment on above: Order Comment: 109.1 Performed By: #### L 500.4100, L100.0500, L500.4050 ####[facility] [address] [place], [address] Hematocrit (Bld) [Volume fraction] 42.2 % Normal 40-54 [facility] Comment on above: Order Comment: 109.1 Performed By: #### L 500.4100, L100.0500, L500.4050 ####[facility] [address] [place], [address] Hemoglobin (Bld) [Mass/Vol] 14.0 g/dL Normal 13.0-16.5 [facility] Comment on above: Order Comment: 109.1 Performed By: #### L 500.4100, L100.0500, L500.4050 ####[facility] [address] [place], [address] MCH (RBC) [Entitic mass] 30.0 pg Normal 27.0-32.0 [facility] Comment on above: Order Comment: 109.1 Performed By: #### L 500.4100, L100.0500, L500.4050 ####[facility] [address] [place], [address] MCHC (RBC) [Mass/Vol] 33.2 g/dL Normal 32-36 [facility] Comment on above: Order Comment: 109.1 Performed By: #### L 500.4100, L100.0500, L500.4050 ####[facility] [address] [place], [address] MCV (RBC) [Entitic vol] 90.6 fL Normal 80-94 [facility] Comment on above: Order Comment: 109.1 Performed By: #### L 500.4100, L100.0500, L500.4050 ####[facility] [address] [place], [address] Platelet mean volume (Bld) [Entitic vol] 11.3 fL Normal 6.2-12.0 [facility] Comment on above: Order Comment: 109.1 Performed By: #### L 500.4100, L100.0500, L500.4050 ####[facility] [address] [place], [address] Platelets (Bld) [#/Vol] 184 10*3/uL Normal 150-450 [facility] Comment on above: Order Comment: 109.1 Performed By: #### L 500.4100, L100.0500, L500.4050 ####[facility] [address] [place], [address] RBC (Bld) [#/Vol] 4.66 10*6/uL Normal 4.6-6.2 [facility] Comment on above: Order Comment: 109.1 Performed By: #### L 500.4100, L100.0500, L500.4050 ####[facility] [address] [place], [address] RDW SD 41.8 fl Normal 35.1-43.9 [facility] Comment on above: Order Comment: 109.1 Performed By: #### L 500.4100, L100.0500, L500.4050 ####[facility] [address] [place], [address] WBC (Bld) [#/Vol] 8.6 10*3/uL Normal 4.4-11.0 [facility] Comment on above: Order Comment: 109.1 Performed By: #### L 500.4100, L100.0500, L500.4050 ####[facility] [address] [place], [address] Calculated very low density lipoprotein (VLDL) cholesterol measurementOrdered By: Renard Burgos on 08-23-2024 Calculated very low density lipoprotein (VLDL) cholesterol measurement 40 mg/dL 5-40 [facility] Carbon dioxide, total [Moles /volume] in Central venous bloodOrdered By: Renard Burgos on 08-23-2024 CO2 [Moles/Vol] 24.9 mmol/L 21.0-32.0 [facility] Chloride assayOrdered By: Garrick Bhatt on 08-23-2024 Chloride [Moles/Vol] 106 mmol/L 98-108 [facility] Comprehensive Metabolic Prof ilon 08-23-2024 Albumin [Mass/Vol] 3.4 g/dL Normal 3.4-4.8 [facility] Comment on above: Order Comment: 109.1 Performed By: #### L 500.4100, L100.0500, L500.4050 ####[facility] [address] [place], [address] Albumin/Globulin [Mass ratio] 1.4 {ratio} Normal 0.9-2.4 [facility] Comment on above: Order Comment: 109.1 Performed By: #### L 500.4100, L100.0500, L500.4050 ####[facility] [address] [place], [address] ALK PHOS 101 U/L Normal 40-129 [facility] Comment on above: Order Comment: 109.1 Performed By: #### L 500.4100, L100.0500, L500.4050 ####[facility] [address] [place], [address] ALT [Catalytic activity/Vol] 13 U/L Normal <=46 [facility] Comment on above: Order Comment: 109.1 Performed By: #### L 500.4100, L100.0500, L500.4050 ####[facility] [address] [place], [address] AST [Catalytic activity/Vol] 17 U/L Normal <=37 [facility] Comment on above: Order Comment: 109.1 Performed By: #### L 500.4100, L100.0500, L500.4050 ####[facility] [address] [place], [address] Bilirubin [Mass/Vol] 0.35 mg/dL Normal 0.00-1.30 [facility] Comment on above: Order Comment: 109.1 Performed By: #### L 500.4100, L100.0500, L500.4050 ####[facility] [address] [place], [address] BUN/CRE 21.4 RATIO High 10-20 [facility] Comment on above: Order Comment: 109.1 Performed By: #### L 500.4100, L100.0500, L500.4050 ####[facility] [address] [place], [address] Calcium [Mass/Vol] 8.2 mg/dL Normal 7.6-11.0 [facility] Comment on above: Order Comment: 109.1 Performed By: #### L 500.4100, L100.0500, L500.4050 ####[facility] [address] [place], [address] Chloride [Moles/Vol] 106 mmol/L Normal 98-108 [facility] Comment on above: Order Comment: 109.1 Performed By: #### L 500.4100, L100.0500, L500.4050 ####[facility] [address] [place], [address] CO2 [Moles/Vol] 24.9 mmol/L Normal 21.0-32.0 [facility] Comment on above: Order Comment: 109.1 Performed By: #### L 500.4100, L100.0500, L500.4050 ####[facility] [address] [place], [address] Creatinine [Mass/Vol] 0.63 mg/dL Low 0.70-1.20 [facility] Comment on above: Order Comment: 109.1 Performed By: #### L 500.4100, L100.0500, L500.4050 ####[facility] [address] [place], [address] GAP 10 Normal 5-15 [facility] Comment on above: Order Comment: 109.1 Performed By: #### L 500.4100, L100.0500, L500.4050 ####[facility] [address] [place], [address] GFR/1.73 sq M.predicted among non-blacks MDRD (S/P/Bld) [Vol rate/Area] 104 mL/min/{1.73_m2} Normal >60 [facility] Comment on above: Order Comment: 109.1 Result Comment: mL/m in/1.73m2 CKD-EPI Creatinine Equation (2020) Performed By: #### L 500.4100, L100.0500, L500.4050 ####[facility] [address] [place], [address] Globulin (S) [Mass/Vol] 2.3 g/dL Normal 2.2-4.2 [facility] Comment on above: Order Comment: 109.1 Performed By: #### L 500.4100, L100.0500, L500.4050 ####[facility] [address] [place], [address] Glucose [Mass/Vol] 116 mg/dL High 70-99 [facility] Comment on above: Order Comment: 109.1 Performed By: #### L 500.4100, L100.0500, L500.4050 ####[facility] [address] [place], [address] Potassium [Moles/Vol] 3.8 mmol/L Normal 3.3-5.1 [facility] Comment on above: Order Comment: 109.1 Performed By: #### L 500.4100, L100.0500, L500.4050 ####[facility] [address] [place], [address] Sodium [Moles/Vol] 141 mmol/L Normal 133-145 [facility] Comment on above: Order Comment: 109.1 Performed By: #### L 500.4100, L100.0500, L500.4050 ####[facility] [address] [place], [address] T PROT 5.7 g/dL Low 5.9-8.4 [facility] Comment on above: Order Comment: 109.1 Performed By: #### L 500.4100, L100.0500, L500.4050 ####[facility] [address] [place], [address] Urea nitrogen [Mass/Vol] 14 mg/dL Normal 4-19 [facility] Comment on above: Order Comment: 109.1 Performed By: #### L 500.4100, L100.0500, L500.4050 ####[facility] [address] [place], [address] Erythrocyte distribution wid th ratioOrdered By: Renard Burgos on 08-23-2024 Erythrocyte distribution width (RBC) [Ratio] 12.7 % 11.6-14.6 [facility] Erythrocyte distribution wid th standard deviationOrdered By: Renard Burgos on 08-23-2024 Erythrocyte distribution width (RBC) [Ratio] 41.8 fl 35.1-43.9 [facility] Glomerular filtration rate ( GFR) estimation/1.73 sq m using serum, plasma, or whole bOrdered By: Renard Burgos on 08-23-2024 GFR/1.73 sq M.predicted among non-blacks MDRD (S/P/Bld) [Vol rate/Area] 104 mL/min/{1.73_m2} >60 [facility] Comment on above: mL/min/1.73m2 CKD-EP I Creatinine Equation (2020) Hematocrit Auto (Bld) [Volum e fraction]Ordered By: Renard Burgos on 08-23-2024 Hematocrit (Bld) [Volume fraction] 42.2 % 40-54 [facility] Hemoglobin measurementOrdere d By: Renard Burgos on 08-23-2024 Hemoglobin (Bld) [Mass/Vol] 14.0 g/dL 13.0-16.5 [facility] LDL calc ser/plasOrdered By: Renard Burgos on 08-23-2024 Cholesterol in LDL [Mass/Vol] 62 mg/dL [facility] Comment on above: Nddbbltwhn=694-731 m g/dL & Higher Nrpz=129 mg/dL or greater Laboratory - Chemistry and C hemistry - challengeOrdered By: Renard Burgos on 08-23-2024 AST [Catalytic activity/Vol] 17 U/L <38 [facility] Lipid Profileon 08-23-2024 CHOL:HDL 5.32 Normal [facility] Comment on above: Order Comment: 109.1 Performed By: #### L 500.4100, L100.0500, L500.4050 ####[facility] [address] [place], [place], [id number] Cholesterol [Mass/Vol] 125 mg/dL Normal <=[address] [facility] Comment on above: Order Comment: 109.1 Result Comment: Chol esterol level, Desirable <200 mg/dLBorderline high cholesterol 200-239 mg/dLHigh cholesterol >=240 mg/dLRecommendations of the NCEP Adult Treatment Panel for thefollowing risk-cutoff thresholds for the [place] Americanpulation. Performed By: #### L 500.4100, L100.0500, L500.4050 ####[facility] [address] [place], [address] Cholesterol in HDL [Mass/Vol] 24 mg/dL Low [facility] Comment on above: Order Comment: 109.1 Result Comment: Lucy onal Cholesterol Education Program (NCEP) guidelines:<40 mg/dL: Low HDL-cholesterol (major risk factor for CHD)>= 60 mg/dL: High HDL-cholesterol (negative risk factor forCHD)HDL-cholesterol is affected by a number of factors, e.g.smoking, exercise, hormones, sex and age. Performed By: #### L 500.4100, L100.0500, L500.4050 ####[facility] [address] [place], [address] Cholesterol in LDL [Mass/Vol] 62 mg/dL Normal [facility] Comment on above: Order Comment: 109.1 Result Comment: Bord vkhyjb=314-174 mg/dL Higher Nzri=990 mg/dL or greater Performed By: #### L 500.4100, L100.0500, L500.4050 ####[facility] [address] [place], [address] Cholesterol in VLDL [Mass/Vol] 40 mg/dL Normal 5-40 [facility] Comment on above: Order Comment: 109.1 Performed By: #### L 500.4100, L100.0500, L500.4050 ####[facility] [address] [place], [address] Triglyceride [Mass/Vol] 198 mg/dL Normal [facility] Comment on above: Order Comment: 109.1 Result Comment: The drugs N-Acetylcysteine and Metamizole may falselydepress this assay.Normal range: <150 mg/dLBorderline High: 150-199 mg/dLHigh: 200-499 mg/dLVery High: >500 mg/dL Performed By: #### L 500.4100, L100.0500, L500.4050 ####[facility] [address] [place], [address] MCV (mean corpuscular volume ) determinationOrdered By: Renard Burgos on 08-23-2024 MCV (RBC) [Entitic vol] 90.6 fL 80-94 [facility] Mean corpuscular hemoglobin (MCH) determinationOrdered By: Renard Burgos on 08-23-2024 MCH (RBC) [Entitic mass] 30.0 pg 27.0-32.0 [facility] Mean corpuscular hemoglobin concentration (MCHC) determinationOrdered By: Renard Burgos on 08-23-2024 MCHC (RBC) [Mass/Vol] 33.2 g/dL 32-36 [facility] Mean platelet volume determi nationOrdered By: Renard Bugros on 08-23-2024 Platelet mean volume (Bld) [Entitic vol] 11.3 fL 6.2-12.0 [facility] Platelet countOrdered By: Garrick Bhatt on 08-23-2024 Platelets (Bld) [#/Vol] 184 10*3/uL 150-450 [facility] Potassium measurement (mass/ volume)Ordered By: Renard Burgos on 08-23-2024 Potassium (Unsp spec) [Mass/Vol] 3.8 mmol/L 3.3-5.1 [facility] RBC Auto (Bld) [#/Vol]Ordere d By: Renard Burgos on 08-23-2024 RBC (Bld) [#/Vol] 4.66 10*6/uL 4.6-6.2 [facility] Screening total cholesterol/ high density lipoprotein (HDL) cholesterol ratioOrdered By: Renard Burgos on 08-23-2024 Cholesterol.total/Cecilia sterol in HDL [Mass ratio] 5.32 {ratio} [facility] Serum creatinine measurement (mass/volume)Ordered By: Renard Burgos on 08-23-2024 Creatinine [Mass/Vol] 0.63 mg/dL Low 0.70-1.20 [facility] Serum globulin measurementOr dered By: Renard Burgos on 08-23-2024 Globulin (S) [Mass/Vol] 2.3 g/dL 2.2-4.2 [facility] Serum glucose measurement (m ass/volume)Ordered By: Renard Burgos on 08-23-2024 Glucose [Mass/Vol] 116 mg/dL High 70-99 [facility] Serum or plasma alanine kay otransferase (ALT) measurementOrdered By: Renard Bugros on 08-23-2024 ALT [Catalytic activity/Vol] 13 U/L <47 [facility] Serum or plasma albumin gordy urement (mass/volume)Ordered By: Renard Burgos on 08-23-2024 Albumin [Mass/Vol] 3.4 g/dL 3.4-4.8 [facility] Serum or plasma albumin/glob ulin mass ratioOrdered By: Renard Burgos on 08-23-2024 Albumin/Globulin [Mass ratio] 1.4 {ratio} 0.9-2.4 [facility] Serum or plasma alkaline trace sphatase measurementOrdered By: Renard Burgos on 08-23-2024 ALP [Catalytic activity/Vol] 101 U/L 40-129 [facility] Serum or plasma calcium gordy urement (mass/volume)Ordered By: Renard Burgos on 08-23-2024 Calcium [Mass/Vol] 8.2 mg/dL 7.6-11.0 [facility] Serum or plasma cholesterol in HDL measurement (mass/volume)Ordered By: Renard Burgos on 08-23-2024 Cholesterol in HDL [Mass/Vol] 24 mg/dL Low >40 [facility] Comment on above: National Cholesterol Education Program (NCEP) guidelines:<40 mg/dL: Low HDL-cholesterol (major risk factor for CHD)>= 60 mg/dL: High HDL-cholesterol (negative risk factor for CHD)HDL-cholesterol is affected by a number of factors, e.g. smoking, exercise, hormones, sex and age. Serum or plasma cholesterol measurement (mass/volume)Ordered By: Renard Burgos on 08-23-2024 Cholesterol [Mass/Vol] 125 mg/dL <[address] [facility] Comment on above: Cholesterol level, D esirable <200 mg/dLBorderline high cholesterol 200-239 mg/dLHigh cholesterol >=240 mg/dLRecommendations of the NCEP Adult Treatment Panel for the following risk-cutoff thresholds for the [place] population. Serum or plasma urea nitroge n measurement (mass/volume)Ordered By: Renard Burgos on 08-23-2024 Urea nitrogen [Mass/Vol] 14 mg/dL 4-19 [facility] Sodium levelOrdered By: Lamine Burogs on 08-23-2024 Sodium [Moles/Vol] 141 mmol/L 133-145 [facility] Total proteinOrdered By: Lyubov Burgos on 08-23-2024 Protein [Mass/Vol] 5.7 g/dL Low 5.9-8.4 [facility] Triglycerides measurementOrd ered By: Renard Burgos on 08-23-2024 Triglyceride [Mass/Vol] 198 mg/dL <199 [facility] Comment on above: The drugs N-Acetylcy steine and Metamizole may falsely depress this assay. Normal range: <150 mg/dLBorderline High: 150-199 mg/dLHigh: 200-499 mg/dLVery High: >500 mg/dL White blood cell (WBC) count Ordered By: Renard Burgos on 08-23-2024 WBC (Bld) [#/Vol] 8.6 10*3/uL 4.4-11.0 [facility] Absolute lymphocyte countOrd ered By: Renard Burgos on 08-19-2024 Lymphocytes Auto (Unsp spec) [#/Vol] 1.97 10*3/uL 0.83-4.51 [facility] Absolute neutrophil countOrd ered By: Renard Burgos on 08-19-2024 Neutrophils (Bld) [#/Vol] 5.0 10*3/uL 2.0-7.7 [facility] Automated lymphocyte count a s percentage of total leukocytesOrdered By: Renard Burgos on 08-19-2024 Lymphocytes/100 WBC Auto (Unsp spec) 25.4 % 19-41 [facility] Basophil percentageOrdered B y: Renard Burgos on 08-19-2024 Basophils/100 WBC (Bld) 0.5 % 0-1 [facility] CBC W/Diff, Automatedon 07-31 Absolute Lymph 1.97 X10 3/uL Normal 0.83-4.51 [facility] Comment on above: Order Comment: 109 Performed By: #### L 100.0100 ####[facility] [address] [place], [place], [id number] Absolute Neut 5.0 X10 3/uL Normal 2.0-7.7 [facility] Comment on above: Order Comment: 109 Performed By: #### L 100.0100 ####[facility] [address] [place], [address] Basophils/100 WBC (Bld) 0.5 % Normal 0-1 [facility] Comment on above: Order Comment: 109 Performed By: #### L 100.0100 ####[facility] [address] [place], [address] Eosinophils/100 WBC (Bld) 1.0 % Normal 0-5 [facility] Comment on above: Order Comment: 109 Performed By: #### L 100.0100 ####[facility] [address] [place], [address] Erythrocyte distribution width (RBC) [Ratio] 12.7 % Normal 11.6-14.6 [facility] Comment on above: Order Comment: 109 Performed By: #### L 100.0100 ####[facility] [address] [place], [address] Hematocrit (Bld) [Volume fraction] 41.0 % Normal 40-54 [facility] Comment on above: Order Comment: 109 Performed By: #### L 100.0100 ####[facility] [address] [place], [address] Hemoglobin (Bld) [Mass/Vol] 13.6 g/dL Normal 13.0-16.5 [facility] Comment on above: Order Comment: 109 Performed By: #### L 100.0100 ####[facility] [address] [place], [address] IG% 0.400 Normal 0.0-0.9 [facility] Comment on above: Order Comment: 109 Result Comment: IG% - Immature Granulocytes (promyelocytes, myelocytes andmetamyelocytes) > 1% indicates that a LEFT SHIFT is Present. Performed By: #### L 100.0100 ####[facility] [address] [place], [address] Lymphocytes/100 WBC (Bld) 25.4 % Normal 19-41 [facility] Comment on above: Order Comment: 109 Performed By: #### L 100.0100 ####[facility] [address] [place], [address] MCH (RBC) [Entitic mass] 30.2 pg Normal 27.0-32.0 [facility] Comment on above: Order Comment: 109 Performed By: #### L 100.0100 ####[facility] [address] [place], [address] MCHC (RBC) [Mass/Vol] 33.2 g/dL Normal 32-36 [facility] Comment on above: Order Comment: 109 Performed By: #### L 100.0100 ####[facility] [address] [place], [address] MCV (RBC) [Entitic vol] 91.1 fL Normal 80-94 [facility] Comment on above: Order Comment: 109 Performed By: #### L 100.0100 ####[facility] [address] [place], [address] Monocytes/100 WBC (Bld) 8.2 % Normal 0-10 [facility] Comment on above: Order Comment: 109 Performed By: #### L 100.0100 ####[facility] [address] [place], [address] Neutrophils/100 WBC (Bld) 64.5 % Normal 47-70 [facility] Comment on above: Order Comment: 109 Performed By: #### L 100.0100 ####[facility] [address] [place], [address] Nucleated RBC (Bld) [#/Vol] 0 10*3/uL Normal 0-5 [facility] Comment on above: Order Comment: 109 Performed By: #### L 100.0100 ####[facility] [address] [place], [address] Platelet mean volume (Bld) [Entitic vol] 11.1 fL Normal 6.2-12.0 [facility] Comment on above: Order Comment: 109 Performed By: #### L 100.0100 ####[facility] [address] [place], [address] Platelets (Bld) [#/Vol] 207 10*3/uL Normal 150-450 [facility] Comment on above: Order Comment: 109 Performed By: #### L 100.0100 ####[facility] [address] [place], [address] RBC (Bld) [#/Vol] 4.50 10*6/uL Low 4.6-6.2 [facility] Comment on above: Order Comment: 109 Performed By: #### L 100.0100 ####[facility] [address] [place], [address] RDW SD 42.0 fl Normal 35.1-43.9 [facility] Comment on above: Order Comment: 109 Performed By: #### L 100.0100 ####[facility] [address] [place], [address] WBC (Bld) [#/Vol] 7.8 10*3/uL Normal 4.4-11.0 [facility] Comment on above: Order Comment: 109 Performed By: #### L 100.0100 ####[facility] [address] [place], [address] Eosinophil percentageOrdered By: Renard Burgos on 08-19-2024 Eosinophils/100 WBC (Bld) 1.0 % 0-5 [facility] Erythrocyte distribution wid th ratioOrdered By: Renard Burgos on 08-19-2024 Erythrocyte distribution width (RBC) [Ratio] 12.7 % 11.6-14.6 [facility] Erythrocyte distribution wid th standard deviationOrdered By: Renard Burgos on 08-19-2024 Erythrocyte distribution width (RBC) [Ratio] 42.0 fl 35.1-43.9 [facility] Hematocrit Auto (Bld) [Volum e fraction]Ordered By: Renard Burgos on 08-19-2024 Hematocrit (Bld) [Volume fraction] 41.0 % 40-54 [facility] Hemoglobin measurementOrdere d By: Renard Burgos on 08-19-2024 Hemoglobin (Bld) [Mass/Vol] 13.6 g/dL 13.0-16.5 [facility] Immature granulocytes/100 WB C Auto (Bld)Ordered By: Renard Burgos on 08-19-2024 Immature granulocytes/100 WBC (Bld) 0.400 % 0.0-0.9 [facility] Comment on above: IG% - Immature Granu locytes (promyelocytes, myelocytes and metamyelocytes) > 1% indicates that a LEFT SHIFT is Present. MCV (mean corpuscular volume ) determinationOrdered By: Renard Burgos on 08-19-2024 MCV (RBC) [Entitic vol] 91.1 fL 80-94 [facility] Mean corpuscular hemoglobin (MCH) determinationOrdered By: Renard Burgos on 08-19-2024 MCH (RBC) [Entitic mass] 30.2 pg 27.0-32.0 [facility] Mean corpuscular hemoglobin concentration (MCHC) determinationOrdered By: Renard Burgos on 08-19-2024 MCHC (RBC) [Mass/Vol] 33.2 g/dL 32-36 [facility] Mean platelet volume determi nationOrdered By: Renard Burgos on 08-19-2024 Platelet mean volume (Bld) [Entitic vol] 11.1 fL 6.2-12.0 [facility] Monocyte percentageOrdered B y: Renard Burgos on 08-19-2024 Monocytes/100 WBC (Bld) 8.2 % 0-10 [facility] Neutrophil percentageOrdered By: Renard Burgos on 08-19-2024 Neutrophils/100 WBC (Bld) 64.5 % 47-70 [facility] Nucleated red blood cell per centageOrdered By: Renard Burgos on 08-19-2024 Nucleated RBC/100 WBC (Bld) [Ratio] 0 % 0-5 [facility] Platelet countOrdered By: Garrick Bhatt on 08-19-2024 Platelets (Bld) [#/Vol] 207 10*3/uL 150-450 [facility] RBC Auto (Bld) [#/Vol]Ordere d By: Renard Burgos on 08-19-2024 RBC (Bld) [#/Vol] 4.50 10*6/uL Low 4.6-6.2 [facility] White blood cell (WBC) count Ordered By: Renard Burgos on 08-19-2024 WBC (Bld) [#/Vol] 7.8 10*3/uL 4.4-11.0 [facility] Absolute lymphocyte countOrd ered By: Renard Burgos on 08-12-2024 Lymphocytes Auto (Unsp spec) [#/Vol] 2.09 10*3/uL 0.83-4.51 [facility] Absolute neutrophil countOrd ered By: Renard Burgos on 08-12-2024 Neutrophils (Bld) [#/Vol] 5.0 10*3/uL 2.0-7.7 [facility] Automated lymphocyte count a s percentage of total leukocytesOrdered By: Renard Burgos on 08-12-2024 Lymphocytes/100 WBC Auto (Unsp spec) 27.0 % 19-41 [facility] Basophil percentageOrdered B y: Renard Burgos on 08-12-2024 Basophils/100 WBC (Bld) 0.5 % 0-1 [facility] CBC W/Diff, Automatedon 07-30 Absolute Lymph 2.09 X10 3/uL Normal 0.83-4.51 [facility] Comment on above: Order Comment: 109.1 Performed By: #### L 100.0100 ####[facility] [address] [place], [place], [id number]) Absolute Neut 5.0 X10 3/uL Normal 2.0-7.7 [facility] Comment on above: Order Comment: 109.1 Performed By: #### L 100.0100 ####[facility] [address] [place], [address] Basophils/100 WBC (Bld) 0.5 % Normal 0-1 [facility] Comment on above: Order Comment: 109.1 Performed By: #### L 100.0100 ####[facility] [address] [place], [address] Eosinophils/100 WBC (Bld) 0.9 % Normal 0-5 [facility] Comment on above: Order Comment: 109.1 Performed By: #### L 100.0100 ####[facility] [address] [place], [address] Erythrocyte distribution width (RBC) [Ratio] 12.7 % Normal 11.6-14.6 [facility] Comment on above: Order Comment: 109.1 Performed By: #### L 100.0100 ####[facility] [address] [place], [address] Hematocrit (Bld) [Volume fraction] 41.9 % Normal 40-54 [facility] Comment on above: Order Comment: 109.1 Performed By: #### L 100.0100 ####[facility] [address] [place], [address] Hemoglobin (Bld) [Mass/Vol] 14.1 g/dL Normal 13.0-16.5 [facility] Comment on above: Order Comment: 109.1 Performed By: #### L 100.0100 ####[facility] [address] [place], [address] IG% 0.300 Normal 0.0-0.9 [facility] Comment on above: Order Comment: 109.1 Result Comment: IG% - Immature Granulocytes (promyelocytes, myelocytes andmetamyelocytes) > 1% indicates that a LEFT SHIFT is Present. Performed By: #### L 100.0100 ####[facility] [address] [place], [address] Lymphocytes/100 WBC (Bld) 27.0 % Normal 19-41 [facility] Comment on above: Order Comment: 109.1 Performed By: #### L 100.0100 ####[facility] [address] [place], [address] MCH (RBC) [Entitic mass] 30.3 pg Normal 27.0-32.0 [facility] Comment on above: Order Comment: 109.1 Performed By: #### L 100.0100 ####[facility] [address] [place], [address] MCHC (RBC) [Mass/Vol] 33.7 g/dL Normal 32-36 [facility] Comment on above: Order Comment: 109.1 Performed By: #### L 100.0100 ####[facility] [address] [place], [address] MCV (RBC) [Entitic vol] 90.1 fL Normal 80-94 [facility] Comment on above: Order Comment: 109.1 Performed By: #### L 100.0100 ####[facility] [address] [place], [address] Monocytes/100 WBC (Bld) 7.1 % Normal 0-10 [facility] Comment on above: Order Comment: 109.1 Performed By: #### L 100.0100 ####[facility] [address] [place], [address] Neutrophils/100 WBC (Bld) 64.2 % Normal 47-70 [facility] Comment on above: Order Comment: 109.1 Performed By: #### L 100.0100 ####[facility] [address] [place], [address] Nucleated RBC (Bld) [#/Vol] 0 10*3/uL Normal 0-5 [facility] Comment on above: Order Comment: 109.1 Performed By: #### L 100.0100 ####[facility] [address] [place], [address] Platelet mean volume (Bld) [Entitic vol] 11.2 fL Normal 6.2-12.0 [facility] Comment on above: Order Comment: 109.1 Performed By: #### L 100.0100 ####[facility] [address] [place], [address] Platelets (Bld) [#/Vol] 188 10*3/uL Normal 150-450 [facility] Comment on above: Order Comment: 109.1 Performed By: #### L 100.0100 ####[facility] [address] [place], [address] RBC (Bld) [#/Vol] 4.65 10*6/uL Normal 4.6-6.2 [facility] Comment on above: Order Comment: 109.1 Performed By: #### L 100.0100 ####[facility] [address] [place], [address] RDW SD 41.6 fl Normal 35.1-43.9 [facility] Comment on above: Order Comment: 109.1 Performed By: #### L 100.0100 ####[facility] [address] [place], [address] WBC (Bld) [#/Vol] 7.8 10*3/uL Normal 4.4-11.0 [facility] Comment on above: Order Comment: 109.1 Performed By: #### L 100.0100 ####[facility] [address] [place], [address] Eosinophil percentageOrdered By: Renard Burgos on 08-12-2024 Eosinophils/100 WBC (Bld) 0.9 % 0-5 [facility] Erythrocyte distribution wid th (RBC) [Ratio]Ordered By: Renard Burgos on 08-12-2024 Erythrocyte distribution width (RBC) [Entitic vol] 41.6 fL 35.1-43.9 [facility] Erythrocyte distribution wid th ratioOrdered By: Renard Burgos on 08-12-2024 Erythrocyte distribution width (RBC) [Ratio] 12.7 % 11.6-14.6 [facility] Erythrocyte distribution wid th standard deviationOrdered By: Renard Burgos on 08-12-2024 Erythrocyte distribution width (RBC) [Ratio] 41.6 fl 35.1-43.9 [facility] Hematocrit Auto (Bld) [Volum e fraction]Ordered By: Renard Burgos on 08-12-2024 Hematocrit (Bld) [Volume fraction] 41.9 % 40-54 [facility] Hemoglobin measurementOrdere d By: Renard Burgos on 08-12-2024 Hemoglobin (Bld) [Mass/Vol] 14.1 g/dL 13.0-16.5 [facility] Immature granulocytes/100 WB C Auto (Bld)Ordered By: Renard Burgos on 08-12-2024 Immature granulocytes/100 WBC (Bld) 0.300 % 0.0-0.9 [facility] Comment on above: IG% - Immature Granu locytes (promyelocytes, myelocytes and metamyelocytes) > 1% indicates that a LEFT SHIFT is Present. Lymphocytes Auto (Unsp spec) [#/Vol]Ordered By: Renard Burgos on 08-12-2024 Lymphocytes (Bld) [#/Vol] 2.09 10*3/uL 0.83-4.51 [facility] Lymphocytes/100 WBC Auto (Un sp spec)Ordered By: Renard Burgos on 08-12-2024 Lymphocytes/100 WBC (Bld) 27.0 % 19-41 [facility] MCV (mean corpuscular volume ) determinationOrdered By: Renard Burgos on 08-12-2024 MCV (RBC) [Entitic vol] 90.1 fL 80-94 [facility] Mean corpuscular hemoglobin (MCH) determinationOrdered By: Renard Burgos on 08-12-2024 MCH (RBC) [Entitic mass] 30.3 pg 27.0-32.0 [facility] Mean corpuscular hemoglobin concentration (MCHC) determinationOrdered By: Renard Burgos on 08-12-2024 MCHC (RBC) [Mass/Vol] 33.7 g/dL 32-36 [facility] Mean platelet volume determi nationOrdered By: Renard Burgos on 08-12-2024 Platelet mean volume (Bld) [Entitic vol] 11.2 fL 6.2-12.0 [facility] Monocyte percentageOrdered B y: Renard Burgos on 08-12-2024 Monocytes/100 WBC (Bld) 7.1 % 0-10 [facility] Neutrophil percentageOrdered By: Renard Burgos on 08-12-2024 Neutrophils/100 WBC (Bld) 64.2 % 47-70 [facility] Nucleated red blood cell per centageOrdered By: Renard Burgos on 08-12-2024 Nucleated RBC/100 WBC (Bld) [Ratio] 0 % 0-5 [facility] Platelet countOrdered By: Garrick Bhatt on 08-12-2024 Platelets (Bld) [#/Vol] 188 10*3/uL 150-450 [facility] RBC Auto (Bld) [#/Vol]Ordere d By: Renard Burgos on 08-12-2024 RBC (Bld) [#/Vol] 4.65 10*6/uL 4.6-6.2 [facility] White blood cell (WBC) count Ordered By: Renard Burgos on 08-12-2024 WBC (Bld) [#/Vol] 7.8 10*3/uL 4.4-11.0 [facility] Absolute lymphocyte countOrd ered By: Renard Burgos on 08-05-2024 Lymphocytes Auto (Unsp spec) [#/Vol] 2.31 10*3/uL 0.83-4.51 [facility] Absolute neutrophil countOrd ered By: Renard Burgos on 08-05-2024 Neutrophils (Bld) [#/Vol] 5.4 10*3/uL 2.0-7.7 [facility] Automated lymphocyte count a s percentage of total leukocytesOrdered By: Renard Burgos on 08-05-2024 Lymphocytes/100 WBC Auto (Unsp spec) 26.9 % 19-41 [facility] Basophil percentageOrdered B y: Renard Burgos on 08-05-2024 Basophils/100 WBC (Bld) 0.6 % 0-1 [facility] CBC W/Diff, Automatedon 04-0 Absolute Lymph 2.31 X10 3/uL Normal 0.83-4.51 [facility] Comment on above: Order Comment: 109.1 Performed By: #### L 100.0100 ####[facility] [address] [place], [address] Absolute Neut 5.4 X10 3/uL Normal 2.0-7.7 [facility] Comment on above: Order Comment: 109.1 Performed By: #### L 100.0100 ####[facility] [address] [place], [address] Basophils/100 WBC (Bld) 0.6 % Normal 0-1 [facility] Comment on above: Order Comment: 109.1 Performed By: #### L 100.0100 ####[facility] [address] [place], [address] Eosinophils/100 WBC (Bld) 0.8 % Normal 0-5 [facility] Comment on above: Order Comment: 109.1 Performed By: #### L 100.0100 ####[facility] [address] [place], [address] Erythrocyte distribution width (RBC) [Ratio] 12.7 % Normal 11.6-14.6 [facility] Comment on above: Order Comment: 109.1 Performed By: #### L 100.0100 ####[facility] [address] [place], [address] Hematocrit (Bld) [Volume fraction] 41.6 % Normal 40-54 [facility] Comment on above: Order Comment: 109.1 Performed By: #### L 100.0100 ####[facility] [address] [place], [address] Hemoglobin (Bld) [Mass/Vol] 13.7 g/dL Normal 13.0-16.5 [facility] Comment on above: Order Comment: 109.1 Performed By: #### L 100.0100 ####[facility] [address] [place], [address] IG% 0.300 Normal 0.0-0.9 [facility] Comment on above: Order Comment: 109.1 Result Comment: IG% - Immature Granulocytes (promyelocytes, myelocytes andmetamyelocytes) > 1% indicates that a LEFT SHIFT is Present. Performed By: #### L 100.0100 ####[facility] [address] [place], [address] Lymphocytes/100 WBC (Bld) 26.9 % Normal 19-41 [facility] Comment on above: Order Comment: 109.1 Performed By: #### L 100.0100 ####[facility] [address] [place], [address] MCH (RBC) [Entitic mass] 30.1 pg Normal 27.0-32.0 [facility] Comment on above: Order Comment: 109.1 Performed By: #### L 100.0100 ####[facility] [address] [place], [address] MCHC (RBC) [Mass/Vol] 32.9 g/dL Normal 32-36 [facility] Comment on above: Order Comment: 109.1 Performed By: #### L 100.0100 ####[facility] [address] [place], [address] MCV (RBC) [Entitic vol] 91.4 fL Normal 80-94 [facility] Comment on above: Order Comment: 109.1 Performed By: #### L 100.0100 ####[facility] [address] [place], [address] Monocytes/100 WBC (Bld) 8.3 % Normal 0-10 [facility] Comment on above: Order Comment: 109.1 Performed By: #### L 100.0100 ####[facility] [address] [place], [address] Neutrophils/100 WBC (Bld) 63.1 % Normal 47-70 [facility] Comment on above: Order Comment: 109.1 Performed By: #### L 100.0100 ####[facility] [address] [place], [address] Nucleated RBC (Bld) [#/Vol] 0 10*3/uL Normal 0-5 [facility] Comment on above: Order Comment: 109.1 Performed By: #### L 100.0100 ####[facility] [address] [place], [address] Platelet mean volume (Bld) [Entitic vol] 11.1 fL Normal 6.2-12.0 [facility] Comment on above: Order Comment: 109.1 Performed By: #### L 100.0100 ####[facility] [address] [place], [address] Platelets (Bld) [#/Vol] 199 10*3/uL Normal 150-450 [facility] Comment on above: Order Comment: 109.1 Performed By: #### L 100.0100 ####[facility] [address] [place], [address] RBC (Bld) [#/Vol] 4.55 10*6/uL Low 4.6-6.2 [facility] Comment on above: Order Comment: 109.1 Performed By: #### L 100.0100 ####[facility] [address] [place], [address] RDW SD 42.5 fl Normal 35.1-43.9 [facility] Comment on above: Order Comment: 109.1 Performed By: #### L 100.0100 ####[facility] [address] [place], [address] WBC (Bld) [#/Vol] 8.6 10*3/uL Normal 4.4-11.0 [facility] Comment on above: Order Comment: 109.1 Performed By: #### L 100.0100 ####[facility] [address] [place], [address] Eosinophil percentageOrdered By: Renard Burgos on 08-05-2024 Eosinophils/100 WBC (Bld) 0.8 % 0-5 [facility] Erythrocyte distribution wid th (RBC) [Ratio]Ordered By: Renard Burgos on 08-05-2024 Erythrocyte distribution width (RBC) [Entitic vol] 42.5 fL 35.1-43.9 [facility] Erythrocyte distribution wid th ratioOrdered By: Renard Burgos on 08-05-2024 Erythrocyte distribution width (RBC) [Ratio] 12.7 % 11.6-14.6 [facility] Erythrocyte distribution wid th standard deviationOrdered By: Renard Burgos on 08-05-2024 Erythrocyte distribution width (RBC) [Ratio] 42.5 fl 35.1-43.9 [facility] Hematocrit Auto (Bld) [Volum e fraction]Ordered By: Renard Burgos on 08-05-2024 Hematocrit (Bld) [Volume fraction] 41.6 % 40-54 [facility] Hemoglobin measurementOrdere d By: Renard Burgos on 08-05-2024 Hemoglobin (Bld) [Mass/Vol] 13.7 g/dL 13.0-16.5 [facility] Immature granulocytes/100 WB C Auto (Bld)Ordered By: Renard Burgos on 08-05-2024 Immature granulocytes/100 WBC (Bld) 0.300 % 0.0-0.9 [facility] Comment on above: IG% - Immature Granu locytes (promyelocytes, myelocytes and metamyelocytes) > 1% indicates that a LEFT SHIFT is Present. Lymphocytes Auto (Unsp spec) [#/Vol]Ordered By: Renard Burgos on 08-05-2024 Lymphocytes (Bld) [#/Vol] 2.31 10*3/uL 0.83-4.51 [facility] Lymphocytes/100 WBC Auto (Un sp spec)Ordered By: Renard Burgos on 08-05-2024 Lymphocytes/100 WBC (Bld) 26.9 % 19-41 [facility] MCV (mean corpuscular volume ) determinationOrdered By: Renard Burgos on 08-05-2024 MCV (RBC) [Entitic vol] 91.4 fL 80-94 [facility] Mean corpuscular hemoglobin (MCH) determinationOrdered By: Renard Burgos on 08-05-2024 MCH (RBC) [Entitic mass] 30.1 pg 27.0-32.0 [facility] Mean corpuscular hemoglobin concentration (MCHC) determinationOrdered By: Renard Burgos on 08-05-2024 MCHC (RBC) [Mass/Vol] 32.9 g/dL 32-36 [facility] Mean platelet volume determi nationOrdered By: Renard Burgos on 08-05-2024 Platelet mean volume (Bld) [Entitic vol] 11.1 fL 6.2-12.0 [facility] Monocyte percentageOrdered B y: Renard Burgos on 08-05-2024 Monocytes/100 WBC (Bld) 8.3 % 0-10 [facility] Neutrophil percentageOrdered By: Renard Burgos on 08-05-2024 Neutrophils/100 WBC (Bld) 63.1 % 47-70 [facility] Nucleated red blood cell per centageOrdered By: Renard Burgos on 08-05-2024 Nucleated RBC/100 WBC (Bld) [Ratio] 0 % 0-5 [facility] Platelet countOrdered By: Garrick Bhatt on 08-05-2024 Platelets (Bld) [#/Vol] 199 10*3/uL 150-450 [facility] RBC Auto (Bld) [#/Vol]Ordere d By: Renard Burgos on 08-05-2024 RBC (Bld) [#/Vol] 4.55 10*6/uL Low 4.6-6.2 [facility] White blood cell (WBC) count Ordered By: Renard Burgos on 08-05-2024 WBC (Bld) [#/Vol] 8.6 10*3/uL 4.4-11.0 [facility] Absolute lymphocyte countOrd ered By: Renard Burgos on 07-29-2024 Lymphocytes Auto (Unsp spec) [#/Vol] 1.93 10*3/uL 0.83-4.51 [facility] Absolute neutrophil countOrd ered By: Renard Hensleydiego on 07-29-2024 Neutrophils (Bld) [#/Vol] 6.8 10*3/uL 2.0-7.7 [facility] Automated lymphocyte count a s percentage of total leukocytesOrdered By: Renard Burgos on 07-29-2024 Lymphocytes/100 WBC Auto (Unsp spec) 20.2 % 19-41 [facility] Basophil percentageOrdered B y: Renard Burgos on 07-29-2024 Basophils/100 WBC (Bld) 0.5 % 0-1 [facility] CBC W/Diff, Automatedon 07-01-2024 Absolute Lymph 1.93 X10 3/uL Normal 0.83-4.51 [facility] Comment on above: Order Comment: 109-1 Performed By: #### L 100.0100 ####[facility] [address] [place], [address] Absolute Neut 6.8 X10 3/uL Normal 2.0-7.7 [facility] Comment on above: Order Comment: 109-1 Performed By: #### L 100.0100 ####[facility] [address] [place], [address] Basophils/100 WBC (Bld) 0.5 % Normal 0-1 [facility] Comment on above: Order Comment: 109-1 Performed By: #### L 100.0100 ####[facility] [address] [place], [address] Eosinophils/100 WBC (Bld) 0.7 % Normal 0-5 [facility] Comment on above: Order Comment: 109-1 Performed By: #### L 100.0100 ####[facility] [address] [place], [address] Erythrocyte distribution width (RBC) [Ratio] 12.8 % Normal 11.6-14.6 [facility] Comment on above: Order Comment: 109-1 Performed By: #### L 100.0100 ####[facility] [address] [place], [address] Hematocrit (Bld) [Volume fraction] 40.7 % Normal 40-54 [facility] Comment on above: Order Comment: 109-1 Performed By: #### L 100.0100 ####[facility] [address] [place], [address] Hemoglobin (Bld) [Mass/Vol] 13.5 g/dL Normal 13.0-16.5 [facility] Comment on above: Order Comment: 109-1 Performed By: #### L 100.0100 ####[facility] [address] [place], [address] IG% 0.400 Normal 0.0-0.9 [facility] Comment on above: Order Comment: 109-1 Result Comment: IG% - Immature Granulocytes (promyelocytes, myelocytes andmetamyelocytes) > 1% indicates that a LEFT SHIFT is Present. Performed By: #### L 100.0100 ####[facility] [address] [place], [address] Lymphocytes/100 WBC (Bld) 20.2 % Normal 19-41 [facility] Comment on above: Order Comment: 109-1 Performed By: #### L 100.0100 ####[facility] [address] [place], [address] MCH (RBC) [Entitic mass] 29.9 pg Normal 27.0-32.0 [facility] Comment on above: Order Comment: 109-1 Performed By: #### L 100.0100 ####[facility] [address] [place], [address] MCHC (RBC) [Mass/Vol] 33.2 g/dL Normal 32-36 [facility] Comment on above: Order Comment: 109-1 Performed By: #### L 100.0100 ####[facility] [address] [place], [address] MCV (RBC) [Entitic vol] 90.0 fL Normal 80-94 [facility] Comment on above: Order Comment: 109-1 Performed By: #### L 100.0100 ####[facility] [address] [place], [address] Monocytes/100 WBC (Bld) 7.1 % Normal 0-10 [facility] Comment on above: Order Comment: 109-1 Performed By: #### L 100.0100 ####[facility] [address] [place], [address] Neutrophils/100 WBC (Bld) 71.1 % High 47-70 [facility] Comment on above: Order Comment: 109-1 Performed By: #### L 100.0100 ####[facility] [address] [place], [address] Nucleated RBC (Bld) [#/Vol] 0 10*3/uL Normal 0-5 [facility] Comment on above: Order Comment: 109-1 Performed By: #### L 100.0100 ####[facility] [address] [place], [address] Platelet mean volume (Bld) [Entitic vol] 11.2 fL Normal 6.2-12.0 [facility] Comment on above: Order Comment: 109-1 Performed By: #### L 100.0100 ####[facility] [address] [place], [address] Platelets (Bld) [#/Vol] 218 10*3/uL Normal 150-450 [facility] Comment on above: Order Comment: 109-1 Performed By: #### L 100.0100 ####[facility] [address] [place], [address] RBC (Bld) [#/Vol] 4.52 10*6/uL Low 4.6-6.2 [facility] Comment on above: Order Comment: 109-1 Performed By: #### L 100.0100 ####[facility] [address] [place], [address] RDW SD 41.9 fl Normal 35.1-43.9 [facility] Comment on above: Order Comment: 109-1 Performed By: #### L 100.0100 ####[facility] [address] [place], [address] WBC (Bld) [#/Vol] 9.6 10*3/uL Normal 4.4-11.0 [facility] Comment on above: Order Comment: 109-1 Performed By: #### L 100.0100 ####[facility] [address] [place], [address] Eosinophil percentageOrdered By: Renard Burgos on 07-29-2024 Eosinophils/100 WBC (Bld) 0.7 % 0-5 [facility] Erythrocyte distribution wid th ratioOrdered By: Renard Burgos on 07-29-2024 Erythrocyte distribution width (RBC) [Ratio] 12.8 % 11.6-14.6 [facility] Erythrocyte distribution wid th standard deviationOrdered By: Renard Burgos on 07-29-2024 Erythrocyte distribution width (RBC) [Entitic vol] 41.9 fL 35.1-43.9 [facility] Erythrocyte distribution width (RBC) [Ratio] 41.9 fl 35.1-43.9 [facility] Hematocrit Auto (Bld) [Volum e fraction]Ordered By: Renard Burgos on 07-29-2024 Hematocrit (Bld) [Volume fraction] 40.7 % 40-54 [facility] Hemoglobin measurementOrdere d By: Renard Burgos on 07-29-2024 Hemoglobin (Bld) [Mass/Vol] 13.5 g/dL 13.0-16.5 [facility] Immature granulocytes/100 WB C Auto (Bld)Ordered By: Renard Burgos on 07-29-2024 Immature granulocytes/100 WBC (Bld) 0.400 % 0.0-0.9 [facility] Comment on above: IG% - Immature Granu locytes (promyelocytes, myelocytes and metamyelocytes) > 1% indicates that a LEFT SHIFT is Present. Lymphocytes Auto (Unsp spec) [#/Vol]Ordered By: Renard Burogs on 07-29-2024 Lymphocytes (Bld) [#/Vol] 1.93 10*3/uL 0.83-4.51 [facility] Lymphocytes/100 WBC Auto (Un sp spec)Ordered By: Renard Burgos on 07-29-2024 Lymphocytes/100 WBC (Bld) 20.2 % 19-41 [facility] MCV (mean corpuscular volume ) determinationOrdered By: Renard Burgos on 07-29-2024 MCV (RBC) [Entitic vol] 90.0 fL 80-94 [facility] Mean corpuscular hemoglobin (MCH) determinationOrdered By: Renard Burgos on 07-29-2024 MCH (RBC) [Entitic mass] 29.9 pg 27.0-32.0 [facility] Mean corpuscular hemoglobin concentration (MCHC) determinationOrdered By: Renard Burgos on 07-29-2024 MCHC (RBC) [Mass/Vol] 33.2 g/dL 32-36 [facility] Mean platelet volume determi nationOrdered By: Renard Burgos on 07-29-2024 Platelet mean volume (Bld) [Entitic vol] 11.2 fL 6.2-12.0 [facility] Monocyte percentageOrdered B y: Renard Burgos on 07-29-2024 Monocytes/100 WBC (Bld) 7.1 % 0-10 [facility] Neutrophil percentageOrdered By: Renard Burgos on 07-29-2024 Neutrophils/100 WBC (Bld) 71.1 % High 47-70 [facility] Nucleated red blood cell per centageOrdered By: Renard Burgos on 07-29-2024 Nucleated RBC/100 WBC (Bld) [Ratio] 0 % 0-5 [facility] Platelet countOrdered By: Garrick Bhatt on 07-29-2024 Platelets (Bld) [#/Vol] 218 10*3/uL 150-450 [facility] RBC Auto (Bld) [#/Vol]Ordere d By: Renard Burgos on 07-29-2024 RBC (Bld) [#/Vol] 4.52 10*6/uL Low 4.6-6.2 [facility] White blood cell (WBC) count Ordered By: Renard Burgos on 07-29-2024 WBC (Bld) [#/Vol] 9.6 10*3/uL 4.4-11.0 [facility] Absolute lymphocyte countOrd ered By: Renard Burgos on 07-22-2024 Lymphocytes Auto (Unsp spec) [#/Vol] 1.90 10*3/uL 0.83-4.51 [facility] Absolute neutrophil countOrd ered By: Renard Burgos on 07-22-2024 Neutrophils (Bld) [#/Vol] 5.2 10*3/uL 2.0-7.7 [facility] Automated lymphocyte count a s percentage of total leukocytesOrdered By: Renard Burgos on 07-22-2024 Lymphocytes/100 WBC Auto (Unsp spec) 23.9 % 19-41 [facility] Basophil percentageOrdered B y: Renard Burgos on 07-22-2024 Basophils/100 WBC (Bld) 0.6 % 0-1 [facility] CBC W/Diff, Automatedon 06-30 Absolute Lymph 1.90 X10 3/uL Normal 0.83-4.51 [facility] Comment on above: Order Comment: 109.1 Performed By: #### L 100.0100 ####[facility] [address] [place], [address] Absolute Neut 5.2 X10 3/uL Normal 2.0-7.7 [facility] Comment on above: Order Comment: 109.1 Performed By: #### L 100.0100 ####[facility] [address] [place], [address] Basophils/100 WBC (Bld) 0.6 % Normal 0-1 [facility] Comment on above: Order Comment: 109.1 Performed By: #### L 100.0100 ####[facility] [address] [place], [address] Eosinophils/100 WBC (Bld) 0.9 % Normal 0-5 [facility] Comment on above: Order Comment: 109.1 Performed By: #### L 100.0100 ####[facility] [address] [place], [address] Erythrocyte distribution width (RBC) [Ratio] 12.9 % Normal 11.6-14.6 [facility] Comment on above: Order Comment: 109.1 Performed By: #### L 100.0100 ####[facility] [address] [place], [address] Hematocrit (Bld) [Volume fraction] 41.4 % Normal 40-54 [facility] Comment on above: Order Comment: 109.1 Performed By: #### L 100.0100 ####[facility] [address] [place], [address] Hemoglobin (Bld) [Mass/Vol] 13.5 g/dL Normal 13.0-16.5 [facility] Comment on above: Order Comment: 109.1 Performed By: #### L 100.0100 ####[facility] [address] [place], [address] IG% 0.300 Normal 0.0-0.9 [facility] Comment on above: Order Comment: 109.1 Result Comment: IG% - Immature Granulocytes (promyelocytes, myelocytes andmetamyelocytes) > 1% indicates that a LEFT SHIFT is Present. Performed By: #### L 100.0100 ####[facility] [address] [place], [address] Lymphocytes/100 WBC (Bld) 23.9 % Normal 19-41 [facility] Comment on above: Order Comment: 109.1 Performed By: #### L 100.0100 ####[facility] [address] [place], [address] MCH (RBC) [Entitic mass] 29.8 pg Normal 27.0-32.0 [facility] Comment on above: Order Comment: 109.1 Performed By: #### L 100.0100 ####[facility] [address] [place], [address] MCHC (RBC) [Mass/Vol] 32.6 g/dL Normal 32-36 [facility] Comment on above: Order Comment: 109.1 Performed By: #### L 100.0100 ####[facility] [address] [place], [address] MCV (RBC) [Entitic vol] 91.4 fL Normal 80-94 [facility] Comment on above: Order Comment: 109.1 Performed By: #### L 100.0100 ####[facility] [address] [place], [address] Monocytes/100 WBC (Bld) 9.4 % Normal 0-10 [facility] Comment on above: Order Comment: 109.1 Performed By: #### L 100.0100 ####[facility] [address] [place], [address] Neutrophils/100 WBC (Bld) 64.9 % Normal 47-70 [facility] Comment on above: Order Comment: 109.1 Performed By: #### L 100.0100 ####[facility] [address] [place], [address] Nucleated RBC (Bld) [#/Vol] 0 10*3/uL Normal 0-5 [facility] Comment on above: Order Comment: 109.1 Performed By: #### L 100.0100 ####[facility] [address] [place], [address] Platelet mean volume (Bld) [Entitic vol] 11.5 fL Normal 6.2-12.0 [facility] Comment on above: Order Comment: 109.1 Performed By: #### L 100.0100 ####[facility] [address] [place], [address] Platelets (Bld) [#/Vol] 202 10*3/uL Normal 150-450 [facility] Comment on above: Order Comment: 109.1 Performed By: #### L 100.0100 ####[facility] [address] [place], [address] RBC (Bld) [#/Vol] 4.53 10*6/uL Low 4.6-6.2 [facility] Comment on above: Order Comment: 109.1 Performed By: #### L 100.0100 ####[facility] [address] [place], [address] RDW SD 42.7 fl Normal 35.1-43.9 [facility] Comment on above: Order Comment: 109.1 Performed By: #### L 100.0100 ####[facility] [address] [place], [address] WBC (Bld) [#/Vol] 8.0 10*3/uL Normal 4.4-11.0 [facility] Comment on above: Order Comment: 109.1 Performed By: #### L 100.0100 ####[facility] [address] [place], [address] Eosinophil percentageOrdered By: Renard Burgos on 07-22-2024 Eosinophils/100 WBC (Bld) 0.9 % 0-5 [facility] Erythrocyte distribution wid th ratioOrdered By: Renard Burgos on 07-22-2024 Erythrocyte distribution width (RBC) [Ratio] 12.9 % 11.6-14.6 [facility] Erythrocyte distribution wid th standard deviationOrdered By: Renard Burgos on 07-22-2024 Erythrocyte distribution width (RBC) [Entitic vol] 42.7 fL 35.1-43.9 [facility] Erythrocyte distribution width (RBC) [Ratio] 42.7 fl 35.1-43.9 [facility] Hematocrit Auto (Bld) [Volum e fraction]Ordered By: Renard Burgos on 07-22-2024 Hematocrit (Bld) [Volume fraction] 41.4 % 40-54 [facility] Hemoglobin measurementOrdere d By: Renard Burgos on 07-22-2024 Hemoglobin (Bld) [Mass/Vol] 13.5 g/dL 13.0-16.5 [facility] Immature granulocytes/100 WB C Auto (Bld)Ordered By: Renard Burgos on 07-22-2024 Immature granulocytes/100 WBC (Bld) 0.300 % 0.0-0.9 [facility] Comment on above: IG% - Immature Granu locytes (promyelocytes, myelocytes and metamyelocytes) > 1% indicates that a LEFT SHIFT is Present. Lymphocytes Auto (Unsp spec) [#/Vol]Ordered By: Renard Burgos on 07-22-2024 Lymphocytes (Bld) [#/Vol] 1.90 10*3/uL 0.83-4.51 [facility] Lymphocytes/100 WBC Auto (Un sp spec)Ordered By: Renard Burgos on 07-22-2024 Lymphocytes/100 WBC (Bld) 23.9 % 19-41 [facility] MCV (mean corpuscular volume ) determinationOrdered By: Renard Burgos on 07-22-2024 MCV (RBC) [Entitic vol] 91.4 fL 80-94 [facility] Mean corpuscular hemoglobin (MCH) determinationOrdered By: Renard Burgos on 07-22-2024 MCH (RBC) [Entitic mass] 29.8 pg 27.0-32.0 [facility] Mean corpuscular hemoglobin concentration (MCHC) determinationOrdered By: Renard Burgos on 07-22-2024 MCHC (RBC) [Mass/Vol] 32.6 g/dL 32-36 [facility] Mean platelet volume determi nationOrdered By: Renard Burgos on 07-22-2024 Platelet mean volume (Bld) [Entitic vol] 11.5 fL 6.2-12.0 [facility] Monocyte percentageOrdered B y: Renard Burgos on 07-22-2024 Monocytes/100 WBC (Bld) 9.4 % 0-10 [facility] Neutrophil percentageOrdered By: Renard Burgos on 07-22-2024 Neutrophils/100 WBC (Bld) 64.9 % 47-70 [facility] Nucleated red blood cell per centageOrdered By: Renard Burgos on 07-22-2024 Nucleated RBC/100 WBC (Bld) [Ratio] 0 % 0-5 [facility] Platelet countOrdered By: Garrick Bhatt on 07-22-2024 Platelets (Bld) [#/Vol] 202 10*3/uL 150-450 [facility] RBC Auto (Bld) [#/Vol]Ordere d By: Renard Burgos on 07-22-2024 RBC (Bld) [#/Vol] 4.53 10*6/uL Low 4.6-6.2 [facility] White blood cell (WBC) count Ordered By: Renard Burgos on 07-22-2024 WBC (Bld) [#/Vol] 8.0 10*3/uL 4.4-11.0 [facility] L506.1001on 07-16-2024 Vitamin D 25-OH 21.8 ng/mL Low 30-100 [facility] Comment on above: Order Comment: 109 Result Comment: Edilma min D StatusDeficiency: <20 ng/mL (50nmol/L)Insufficiency: 20-30 ng/mL (50-75 nmol/L)Sufficiency: 30-100 ng/mL (75-250 nmol/L)Toxicity: >100 ng/mL (>250 nmol/L) Performed By: #### L 506.1001 ####[facility] [address] [place], [address] Vitamin D, 25-hydroxyOrdered By: Renard Burgos on 07-16-2024 Vitamin D 25-Hydroxy 21.8 ng/mL Low 30-100 [facility] Comment on above: Vitamin D StatusDefi ciency: <20 ng/mL (50nmol/L)Insufficiency: 20-30 ng/mL (50-75 nmol/L)Sufficiency: 30-100 ng/mL (75-250 nmol/L)Toxicity: >100 ng/mL (>250 nmol/L) Absolute lymphocyte countOrd ered By: Renard Burgos on 07-15-2024 Lymphocytes Auto (Unsp spec) [#/Vol] 2.10 10*3/uL 0.83-4.51 [facility] Absolute neutrophil countOrd ered By: Renard Burgos on 07-15-2024 Neutrophils (Bld) [#/Vol] 6.9 10*3/uL 2.0-7.7 [facility] Automated lymphocyte count a s percentage of total leukocytesOrdered By: Renard Burgos on 07-15-2024 Lymphocytes/100 WBC Auto (Unsp spec) 21.0 % 19-41 [facility] Basophil percentageOrdered B y: Renard Burgos on 07-15-2024 Basophils/100 WBC (Bld) 0.5 % 0-1 [facility] CBC W/Diff, Automatedon 06-29 Absolute Lymph 2.10 X10 3/uL Normal 0.83-4.51 [facility] Comment on above: Order Comment: 109.1 Performed By: #### L 100.0100 ####[facility] [address] [place], [address] Absolute Neut 6.9 X10 3/uL Normal 2.0-7.7 [facility] Comment on above: Order Comment: 109.1 Performed By: #### L 100.0100 ####[facility] [address] [place], [address] Basophils/100 WBC (Bld) 0.5 % Normal 0-1 [facility] Comment on above: Order Comment: 109.1 Performed By: #### L 100.0100 ####[facility] [address] [place], [address] Eosinophils/100 WBC (Bld) 1.2 % Normal 0-5 [facility] Comment on above: Order Comment: 109.1 Performed By: #### L 100.0100 ####[facility] [address] [place], [address] Erythrocyte distribution width (RBC) [Ratio] 12.9 % Normal 11.6-14.6 [facility] Comment on above: Order Comment: 109.1 Performed By: #### L 100.0100 ####[facility] [address] [place], [address] Hematocrit (Bld) [Volume fraction] 41.0 % Normal 40-54 [facility] Comment on above: Order Comment: 109.1 Performed By: #### L 100.0100 ####[facility] [address] [place], [address] Hemoglobin (Bld) [Mass/Vol] 13.4 g/dL Normal 13.0-16.5 [facility] Comment on above: Order Comment: 109.1 Performed By: #### L 100.0100 ####[facility] [address] [place], [address] IG% 0.300 Normal 0.0-0.9 [facility] Comment on above: Order Comment: 109.1 Result Comment: IG% - Immature Granulocytes (promyelocytes, myelocytes andmetamyelocytes) > 1% indicates that a LEFT SHIFT is Present. Performed By: #### L 100.0100 ####[facility] [address] [place], [address] Lymphocytes/100 WBC (Bld) 21.0 % Normal 19-41 [facility] Comment on above: Order Comment: 109.1 Performed By: #### L 100.0100 ####[facility] [address] [place], [address] MCH (RBC) [Entitic mass] 29.7 pg Normal 27.0-32.0 [facility] Comment on above: Order Comment: 109.1 Performed By: #### L 100.0100 ####[facility] [address] [place], [address] MCHC (RBC) [Mass/Vol] 32.7 g/dL Normal 32-36 [facility] Comment on above: Order Comment: 109.1 Performed By: #### L 100.0100 ####[facility] [address] [place], [address] MCV (RBC) [Entitic vol] 90.9 fL Normal 80-94 [facility] Comment on above: Order Comment: 109.1 Performed By: #### L 100.0100 ####[facility] [address] [place], [address] Monocytes/100 WBC (Bld) 7.6 % Normal 0-10 [facility] Comment on above: Order Comment: 109.1 Performed By: #### L 100.0100 ####[facility] [address] [place], [address] Neutrophils/100 WBC (Bld) 69.4 % Normal 47-70 [facility] Comment on above: Order Comment: 109.1 Performed By: #### L 100.0100 ####[facility] [address] [place], [address] Nucleated RBC (Bld) [#/Vol] 0 10*3/uL Normal 0-5 [facility] Comment on above: Order Comment: 109.1 Performed By: #### L 100.0100 ####[facility] [address] [place], [address] Platelet mean volume (Bld) [Entitic vol] 11.4 fL Normal 6.2-12.0 [facility] Comment on above: Order Comment: 109.1 Performed By: #### L 100.0100 ####[facility] [address] [place], [address] Platelets (Bld) [#/Vol] 206 10*3/uL Normal 150-450 [facility] Comment on above: Order Comment: 109.1 Performed By: #### L 100.0100 ####[facility] [address] [place], [address] RBC (Bld) [#/Vol] 4.51 10*6/uL Low 4.6-6.2 [facility] Comment on above: Order Comment: 109.1 Performed By: #### L 100.0100 ####[facility] [address] [place], [address] RDW SD 42.3 fl Normal 35.1-43.9 [facility] Comment on above: Order Comment: 109.1 Performed By: #### L 100.0100 ####[facility] [address] [place], [address] WBC (Bld) [#/Vol] 10.0 10*3/uL Normal 4.4-11.0 [facility] Comment on above: Order Comment: 109.1 Performed By: #### L 100.0100 ####[facility] [address] [place], [address] Eosinophil percentageOrdered By: Renard Burgos on 07-15-2024 Eosinophils/100 WBC (Bld) 1.2 % 0-5 [facility] Erythrocyte distribution wid th ratioOrdered By: Renard Burgos on 07-15-2024 Erythrocyte distribution width (RBC) [Ratio] 12.9 % 11.6-14.6 [facility] Erythrocyte distribution wid th standard deviationOrdered By: Renard Burgos on 07-15-2024 Erythrocyte distribution width (RBC) [Entitic vol] 42.3 fL 35.1-43.9 [facility] Erythrocyte distribution width (RBC) [Ratio] 42.3 fl 35.1-43.9 [facility] Hematocrit Auto (Bld) [Volum e fraction]Ordered By: Renard Burgos on 07-15-2024 Hematocrit (Bld) [Volume fraction] 41.0 % 40-54 [facility] Hemoglobin measurementOrdere d By: Renard Burgos on 07-15-2024 Hemoglobin (Bld) [Mass/Vol] 13.4 g/dL 13.0-16.5 [facility] Immature granulocytes/100 WB C Auto (Bld)Ordered By: Renard Burgos on 07-15-2024 Immature granulocytes/100 WBC (Bld) 0.300 % 0.0-0.9 [facility] Comment on above: IG% - Immature Granu locytes (promyelocytes, myelocytes and metamyelocytes) > 1% indicates that a LEFT SHIFT is Present. Lymphocytes Auto (Unsp spec) [#/Vol]Ordered By: Renard Burgos on 07-15-2024 Lymphocytes (Bld) [#/Vol] 2.10 10*3/uL 0.83-4.51 [facility] Lymphocytes/100 WBC Auto (Un sp spec)Ordered By: Renard Burgos on 07-15-2024 Lymphocytes/100 WBC (Bld) 21.0 % 19-41 [facility] MCV (mean corpuscular volume ) determinationOrdered By: Renard Burgos on 07-15-2024 MCV (RBC) [Entitic vol] 90.9 fL 80-94 [facility] Mean corpuscular hemoglobin (MCH) determinationOrdered By: Renard Burgos on 07-15-2024 MCH (RBC) [Entitic mass] 29.7 pg 27.0-32.0 [facility] Mean corpuscular hemoglobin concentration (MCHC) determinationOrdered By: Renard Burgos on 07-15-2024 MCHC (RBC) [Mass/Vol] 32.7 g/dL 32-36 [facility] Mean platelet volume determi nationOrdered By: Renard Burgos on 07-15-2024 Platelet mean volume (Bld) [Entitic vol] 11.4 fL 6.2-12.0 [facility] Monocyte percentageOrdered B y: Renard Burgos on 07-15-2024 Monocytes/100 WBC (Bld) 7.6 % 0-10 [facility] Neutrophil percentageOrdered By: Renard Burgos on 07-15-2024 Neutrophils/100 WBC (Bld) 69.4 % 47-70 [facility] Nucleated red blood cell per centageOrdered By: Renard Burgos on 07-15-2024 Nucleated RBC/100 WBC (Bld) [Ratio] 0 % 0-5 [facility] Platelet countOrdered By: Garrick Bhatt on 07-15-2024 Platelets (Bld) [#/Vol] 206 10*3/uL 150-450 [facility] RBC Auto (Bld) [#/Vol]Ordere d By: Renard Burgos on 07-15-2024 RBC (Bld) [#/Vol] 4.51 10*6/uL Low 4.6-6.2 [facility] White blood cell (WBC) count Ordered By: Renard Burgos on 07-15-2024 WBC (Bld) [#/Vol] 10.0 10*3/uL 4.4-11.0 [facility] Absolute lymphocyte countOrd ered By: Renard Burgos on 07-08-2024 Lymphocytes Auto (Unsp spec) [#/Vol] 2.02 10*3/uL 0.83-4.51 [facility] Absolute neutrophil countOrd ered By: Renard Burgos on 07-08-2024 Neutrophils (Bld) [#/Vol] 7.2 10*3/uL 2.0-7.7 [facility] Automated lymphocyte count a s percentage of total leukocytesOrdered By: Renard Burgos on 07-08-2024 Lymphocytes/100 WBC Auto (Unsp spec) 19.7 % 19-41 [facility] Basophil percentageOrdered B y: Renard Burgos on 07-08-2024 Basophils/100 WBC (Bld) 0.6 % 0-1 [facility] CBC W/Diff, Automatedon 06-29 Absolute Lymph 2.02 X10 3/uL Normal 0.83-4.51 [facility] Comment on above: Order Comment: 109-1 Performed By: #### L 100.0100 ####[facility] [address] [place], [address] Absolute Neut 7.2 X10 3/uL Normal 2.0-7.7 [facility] Comment on above: Order Comment: 109-1 Performed By: #### L 100.0100 ####[facility] [address] [place], [address] Basophils/100 WBC (Bld) 0.6 % Normal 0-1 [facility] Comment on above: Order Comment: 109-1 Performed By: #### L 100.0100 ####[facility] [address] [place], [address] Eosinophils/100 WBC (Bld) 1.5 % Normal 0-5 [facility] Comment on above: Order Comment: 109-1 Performed By: #### L 100.0100 ####[facility] [address] [place], [address] Erythrocyte distribution width (RBC) [Ratio] 12.9 % Normal 11.6-14.6 [facility] Comment on above: Order Comment: 109-1 Performed By: #### L 100.0100 ####[facility] [address] [place], [address] Hematocrit (Bld) [Volume fraction] 40.6 % Normal 40-54 [facility] Comment on above: Order Comment: 109-1 Performed By: #### L 100.0100 ####[facility] [address] [place], [address] Hemoglobin (Bld) [Mass/Vol] 13.6 g/dL Normal 13.0-16.5 [facility] Comment on above: Order Comment: 109-1 Performed By: #### L 100.0100 ####[facility] [address] [place], [address] IG% 0.500 Normal 0.0-0.9 [facility] Comment on above: Order Comment: 109-1 Result Comment: IG% - Immature Granulocytes (promyelocytes, myelocytes andmetamyelocytes) > 1% indicates that a LEFT SHIFT is Present. Performed By: #### L 100.0100 ####[facility] [address] [place], [address] Lymphocytes/100 WBC (Bld) 19.7 % Normal 19-41 [facility] Comment on above: Order Comment: 109-1 Performed By: #### L 100.0100 ####[facility] [address] [place], [address] MCH (RBC) [Entitic mass] 30.5 pg Normal 27.0-32.0 [facility] Comment on above: Order Comment: 109-1 Performed By: #### L 100.0100 ####[facility] [address] [place], [address] MCHC (RBC) [Mass/Vol] 33.5 g/dL Normal 32-36 [facility] Comment on above: Order Comment: 109-1 Performed By: #### L 100.0100 ####[facility] [address] [place], [address] MCV (RBC) [Entitic vol] 91.0 fL Normal 80-94 [facility] Comment on above: Order Comment: 109-1 Performed By: #### L 100.0100 ####[facility] [address] [place], [address] Monocytes/100 WBC (Bld) 7.4 % Normal 0-10 [facility] Comment on above: Order Comment: 109-1 Performed By: #### L 100.0100 ####[facility] [address] [place], [address] Neutrophils/100 WBC (Bld) 70.3 % High 47-70 [facility] Comment on above: Order Comment: 109-1 Performed By: #### L 100.0100 ####[facility] [address] [place], [address] Nucleated RBC (Bld) [#/Vol] 0 10*3/uL Normal 0-5 [facility] Comment on above: Order Comment: 109-1 Performed By: #### L 100.0100 ####[facility] [address] [place], [address] Platelet mean volume (Bld) [Entitic vol] 11.1 fL Normal 6.2-12.0 [facility] Comment on above: Order Comment: 109-1 Performed By: #### L 100.0100 ####[facility] [address] [place], [address] Platelets (Bld) [#/Vol] 207 10*3/uL Normal 150-450 [facility] Comment on above: Order Comment: 109-1 Performed By: #### L 100.0100 ####[facility] [address] [place], [address] RBC (Bld) [#/Vol] 4.46 10*6/uL Low 4.6-6.2 [facility] Comment on above: Order Comment: 109-1 Performed By: #### L 100.0100 ####[facility] [address] [place], [address] RDW SD 42.5 fl Normal 35.1-43.9 [facility] Comment on above: Order Comment: 109-1 Performed By: #### L 100.0100 ####[facility] [address] [place], [address] WBC (Bld) [#/Vol] 10.3 10*3/uL Normal 4.4-11.0 [facility] Comment on above: Order Comment: 109-1 Performed By: #### L 100.0100 ####[facility] [address] [place], [address] Eosinophil percentageOrdered By: Renard Burgos on 07-08-2024 Eosinophils/100 WBC (Bld) 1.5 % 0-5 [facility] Erythrocyte distribution wid th ratioOrdered By: Renard Burgos on 07-08-2024 Erythrocyte distribution width (RBC) [Ratio] 12.9 % 11.6-14.6 [facility] Erythrocyte distribution wid th standard deviationOrdered By: Renard Burgos on 07-08-2024 Erythrocyte distribution width (RBC) [Entitic vol] 42.5 fL 35.1-43.9 [facility] Erythrocyte distribution width (RBC) [Ratio] 42.5 fl 35.1-43.9 [facility] Hematocrit Auto (Bld) [Volum e fraction]Ordered By: Renard Burgos on 07-08-2024 Hematocrit (Bld) [Volume fraction] 40.6 % 40-54 [facility] Hemoglobin measurementOrdere d By: Renard Burgos on 07-08-2024 Hemoglobin (Bld) [Mass/Vol] 13.6 g/dL 13.0-16.5 [facility] Immature granulocytes/100 WB C Auto (Bld)Ordered By: Renard Burgos on 07-08-2024 Immature granulocytes/100 WBC (Bld) 0.500 % 0.0-0.9 [facility] Comment on above: IG% - Immature Granu locytes (promyelocytes, myelocytes and metamyelocytes) > 1% indicates that a LEFT SHIFT is Present. Lymphocytes Auto (Unsp spec) [#/Vol]Ordered By: Renard Burgos on 07-08-2024 Lymphocytes (Bld) [#/Vol] 2.02 10*3/uL 0.83-4.51 [facility] Lymphocytes/100 WBC Auto (Un sp spec)Ordered By: Renard Burgos on 07-08-2024 Lymphocytes/100 WBC (Bld) 19.7 % 19-41 [facility] MCV (mean corpuscular volume ) determinationOrdered By: Renard Burgos on 07-08-2024 MCV (RBC) [Entitic vol] 91.0 fL 80-94 [facility] Mean corpuscular hemoglobin (MCH) determinationOrdered By: Renard Burgos on 07-08-2024 MCH (RBC) [Entitic mass] 30.5 pg 27.0-32.0 [facility] Mean corpuscular hemoglobin concentration (MCHC) determinationOrdered By: Renard Burgos on 07-08-2024 MCHC (RBC) [Mass/Vol] 33.5 g/dL 32-36 [facility] Mean platelet volume determi nationOrdered By: Renard Burgos on 07-08-2024 Platelet mean volume (Bld) [Entitic vol] 11.1 fL 6.2-12.0 [facility] Monocyte percentageOrdered B y: Renard Burgos on 07-08-2024 Monocytes/100 WBC (Bld) 7.4 % 0-10 [facility] Neutrophil percentageOrdered By: Renard Burgos on 07-08-2024 Neutrophils/100 WBC (Bld) 70.3 % High 47-70 [facility] Nucleated red blood cell per centageOrdered By: Renard Burgos on 07-08-2024 Nucleated RBC/100 WBC (Bld) [Ratio] 0 % 0-5 [facility] Platelet countOrdered By: Garrick Bhatt on 07-08-2024 Platelets (Bld) [#/Vol] 207 10*3/uL 150-450 [facility] RBC Auto (Bld) [#/Vol]Ordere d By: Renard Burgos on 07-08-2024 RBC (Bld) [#/Vol] 4.46 10*6/uL Low 4.6-6.2 [facility] White blood cell (WBC) count Ordered By: Renard Burgos on 07-08-2024 WBC (Bld) [#/Vol] 10.3 10*3/uL 4.4-11.0 [facility] Absolute lymphocyte countOrd ered By: Renard Burgos on 07-01-2024 Lymphocytes Auto (Unsp spec) [#/Vol] 2.03 10*3/uL 0.83-4.51 [facility] Absolute neutrophil countOrd ered By: Renard Burgos on 07-01-2024 Neutrophils (Bld) [#/Vol] 7.0 10*3/uL 2.0-7.7 [facility] Automated lymphocyte count a s percentage of total leukocytesOrdered By: Renard Burgos on 07-01-2024 Lymphocytes/100 WBC Auto (Unsp spec) 20.3 % 19-41 [facility] Basophil percentageOrdered B y: Renard Burgos on 07-01-2024 Basophils/100 WBC (Bld) 0.6 % 0-1 [facility] CBC W/Diff, Automatedon Absolute Lymph 2.03 X10 3/uL Normal 0.83-4.51 [facility] Comment on above: Order Comment: 109 Performed By: #### L 100.0100 ####[facility] [address] [place], [address] Absolute Neut 7.0 X10 3/uL Normal 2.0-7.7 [facility] Comment on above: Order Comment: 109 Performed By: #### L 100.0100 ####[facility] [address] [place], [address] Basophils/100 WBC (Bld) 0.6 % Normal 0-1 [facility] Comment on above: Order Comment: 109 Performed By: #### L 100.0100 ####[facility] [address] [place], [address] Eosinophils/100 WBC (Bld) 1.3 % Normal 0-5 [facility] Comment on above: Order Comment: 109 Performed By: #### L 100.0100 ####[facility] [address] [place], [address] Erythrocyte distribution width (RBC) [Ratio] 13.1 % Normal 11.6-14.6 [facility] Comment on above: Order Comment: 109 Performed By: #### L 100.0100 ####[facility] [address] [place], [address] Hematocrit (Bld) [Volume fraction] 41.7 % Normal 40-54 [facility] Comment on above: Order Comment: 109 Performed By: #### L 100.0100 ####[facility] [address] [place], [address] Hemoglobin (Bld) [Mass/Vol] 13.6 g/dL Normal 13.0-16.5 [facility] Comment on above: Order Comment: 109 Performed By: #### L 100.0100 ####[facility] [address] [place], [address] IG% 0.500 Normal 0.0-0.9 [facility] Comment on above: Order Comment: 109 Result Comment: IG% - Immature Granulocytes (promyelocytes, myelocytes andmetamyelocytes) > 1% indicates that a LEFT SHIFT is Present. Performed By: #### L 100.0100 ####[facility] [address] [place], [address] Lymphocytes/100 WBC (Bld) 20.3 % Normal 19-41 [facility] Comment on above: Order Comment: 109 Performed By: #### L 100.0100 ####[facility] [address] [place], [address] MCH (RBC) [Entitic mass] 29.6 pg Normal 27.0-32.0 [facility] Comment on above: Order Comment: 109 Performed By: #### L 100.0100 ####[facility] [address] [place], [address] MCHC (RBC) [Mass/Vol] 32.6 g/dL Normal 32-36 [facility] Comment on above: Order Comment: 109 Performed By: #### L 100.0100 ####[facility] [address] [place], [address] MCV (RBC) [Entitic vol] 90.8 fL Normal 80-94 [facility] Comment on above: Order Comment: 109 Performed By: #### L 100.0100 ####[facility] [address] [place], [address] Monocytes/100 WBC (Bld) 6.8 % Normal 0-10 [facility] Comment on above: Order Comment: 109 Performed By: #### L 100.0100 ####[facility] [address] [place], [address] Neutrophils/100 WBC (Bld) 70.5 % High 47-70 [facility] Comment on above: Order Comment: 109 Performed By: #### L 100.0100 ####[facility] [address] [place], [address] Nucleated RBC (Bld) [#/Vol] 0 10*3/uL Normal 0-5 [facility] Comment on above: Order Comment: 109 Performed By: #### L 100.0100 ####[facility] [address] [place], [address] Platelet mean volume (Bld) [Entitic vol] 11.0 fL Normal 6.2-12.0 [facility] Comment on above: Order Comment: 109 Performed By: #### L 100.0100 ####[facility] [address] [place], [address] Platelets (Bld) [#/Vol] 208 10*3/uL Normal 150-450 [facility] Comment on above: Order Comment: 109 Performed By: #### L 100.0100 ####[facility] [address] [place], [address] RBC (Bld) [#/Vol] 4.59 10*6/uL Low 4.6-6.2 [facility] Comment on above: Order Comment: 109 Performed By: #### L 100.0100 ####[facility] [address] [place], [address] RDW SD 42.8 fl Normal 35.1-43.9 [facility] Comment on above: Order Comment: 109 Performed By: #### L 100.0100 ####[facility] [address] [place], [address] WBC (Bld) [#/Vol] 10.0 10*3/uL Normal 4.4-11.0 [facility] Comment on above: Order Comment: 109 Performed By: #### L 100.0100 ####[facility] [address] [place], [address] Eosinophil percentageOrdered By: Renard Burgos on 07-01-2024 Eosinophils/100 WBC (Bld) 1.3 % 0-5 [facility] Erythrocyte distribution wid th ratioOrdered By: Renard Burgos on 07-01-2024 Erythrocyte distribution width (RBC) [Ratio] 13.1 % 11.6-14.6 [facility] Erythrocyte distribution wid th standard deviationOrdered By: Renard Burgos on 07-01-2024 Erythrocyte distribution width (RBC) [Entitic vol] 42.8 fL 35.1-43.9 [facility] Erythrocyte distribution width (RBC) [Ratio] 42.8 fl 35.1-43.9 [facility] Hematocrit Auto (Bld) [Volum e fraction]Ordered By: Renard Burgos on 07-01-2024 Hematocrit (Bld) [Volume fraction] 41.7 % 40-54 [facility] Hemoglobin measurementOrdere d By: Renard Burgos on 07-01-2024 Hemoglobin (Bld) [Mass/Vol] 13.6 g/dL 13.0-16.5 [facility] Immature granulocytes/100 WB C Auto (Bld)Ordered By: Renard Burgos on 07-01-2024 Immature granulocytes/100 WBC (Bld) 0.500 % 0.0-0.9 [facility] Comment on above: IG% - Immature Granu locytes (promyelocytes, myelocytes and metamyelocytes) > 1% indicates that a LEFT SHIFT is Present. Lymphocytes Auto (Unsp spec) [#/Vol]Ordered By: Renard Burgos on 07-01-2024 Lymphocytes (Bld) [#/Vol] 2.03 10*3/uL 0.83-4.51 [facility] Lymphocytes/100 WBC Auto (Un sp spec)Ordered By: Renard Burgos on 07-01-2024 Lymphocytes/100 WBC (Bld) 20.3 % 19-41 [facility] MCV (mean corpuscular volume ) determinationOrdered By: Renard Burgos on 07-01-2024 MCV (RBC) [Entitic vol] 90.8 fL 80-94 [facility] Mean corpuscular hemoglobin (MCH) determinationOrdered By: Renard Burgos on 07-01-2024 MCH (RBC) [Entitic mass] 29.6 pg 27.0-32.0 [facility] Mean corpuscular hemoglobin concentration (MCHC) determinationOrdered By: Renard Burgos on 07-01-2024 MCHC (RBC) [Mass/Vol] 32.6 g/dL 32-36 [facility] Mean platelet volume determi nationOrdered By: Renard Burgos on 07-01-2024 Platelet mean volume (Bld) [Entitic vol] 11.0 fL 6.2-12.0 [facility] Monocyte percentageOrdered B y: Renard Burgos on 07-01-2024 Monocytes/100 WBC (Bld) 6.8 % 0-10 [facility] Neutrophil percentageOrdered By: Renard Burgos on 07-01-2024 Neutrophils/100 WBC (Bld) 70.5 % High 47-70 [facility] Nucleated red blood cell per centageOrdered By: Renard Burgos on 07-01-2024 Nucleated RBC/100 WBC (Bld) [Ratio] 0 % 0-5 [facility] Platelet countOrdered By: Garrick Bhatt on 07-01-2024 Platelets (Bld) [#/Vol] 208 10*3/uL 150-450 [facility] RBC Auto (Bld) [#/Vol]Ordere d By: Renard Burgos on 07-01-2024 RBC (Bld) [#/Vol] 4.59 10*6/uL Low 4.6-6.2 [facility] White blood cell (WBC) count Ordered By: Renard Burgos on 07-01-2024 WBC (Bld) [#/Vol] 10.0 10*3/uL 4.4-11.0 [facility] Urine Cultureon 06-30-2024 URC Normal [facility] Comment on above: Performed By: #### M 100.2200, L400.0001 ####[facility] [address] [place], [address] Bilirubin Test strip Ql (U)O rdered By: Renard Burgos on 06-27-2024 Bilirubin Ql (U) Negative Negative [facility] Epithelial cells.squamous LM Ql (Urine sed)Ordered By: Renard Burgos on 06-27-2024 Epithelial cells.squamous LM.HPF (Urine sed) [#/Area] 0 /[HPF] 0-5 [facility] Glucose Ql (U)Ordered By: Garrick Bhatt on 06-27-2024 Urine Glucose (UA) Normal mg/dl Normal [facility] Ketones Test strip Ql (U)Ord ered By: Renard Burgos on 06-27-2024 Ketones Ql (U) Negative Negative [facility] Microscopic analysis of urin e for red blood cells (RBC)Ordered By: Renard Burgos on 06-27-2024 Microscopic analysis of urine for red blood cells (RBC) 0 SEEN /hpf 0-5 [facility] Urine RBC 0 SEEN /hpf 0-5 [facility] Mucus LM Ql (Urine sed)Order ed By: Renard Burgos on 06-27-2024 Mucus Ql (Urine sed) 0 SEEN /hpf [facility] Nitrite Test strip Ql (U)Ord ered By: Renard Burgos on 06-27-2024 Nitrite Ql (U) Negative Negative [facility] Protein Test strip Ql (U)Ord ered By: Renard Burgos on 06-27-2024 Protein Ql (U) 15 mg/dl High Negative [facility] Squamous epithelial cells de tection in urine sediment by light microscopyOrdered By: Renard Burgos on 06-27-2024 Epithelial cells.squamous LM Ql (Urine sed) 0 SEEN /hpf 0-5 [facility] Urinalysis, Completeon 06-27 RBC 0 SEEN Normal 0-5 [facility] Comment on above: Order Comment: ARCHANA MCBRIDE SPECIMEN Performed By: #### M 100.2200, L400.0001 ####[facility] [address] [place], [address] Urine blood detectionOrdered By: Renard Burgos on 06-27-2024 Urine Occult Blood Negative Negative [facility] Urine clarityOrdered By: Lyubov Burgos on 06-27-2024 Clarity (U) Clear Clear [facility] Urine color determinationOrd ered By: Renard Burgos on 06-27-2024 Color (U) Yellow Yellow [facility] Urine cultureOrdered By: Pet lizy Burgos on 06-27-2024 Bacteria identified Cx Nom (U) Staphylococcus warneri Abnormal [facility] Bacteria identified Cx Nom (U) Aerococcus viridans. Abnormal [facility] Bacteria identified Cx Nom (U) Presumptive C albicans Abnormal [facility] Bacteria identified Cx Nom (U) Staphylococcus warneri Abnormal [facility] Bacteria identified Cx Nom (U) Aerococcus viridans. Abnormal [facility] Bacteria identified Cx Nom (U) Presumptive C albicans Abnormal [facility] Urine glucose detectionOrder ed By: Renard Burgos on 06-27-2024 Glucose Ql (U) Normal mg/dl Normal [facility] Urine leukocyte esterase det ection by dipstickOrdered By: Renard Burgos on 06-27-2024 Leukocyte esterase Test strip Ql (U) Negative Negative [facility] Urine pHOrdered By: Renard ocampo on 06-27-2024 pH (U) 7.0 [pH] 5.0 - 8.0 [facility] Urine sediment bacteria coun t by microscopy (number/high power field)Ordered By: Renard Burgos on 06-27-2024 Bacteria LM.HPF (Urine sed) [#/Area] 0 /[HPF] None Seen [facility] Urine specific gravity measu rementOrdered By: Renard Burgos on 06-27-2024 Specific gravity (U) [Rel density] 1.010 1.002-1.030 [facility] Urine urobilinogen measureme ntOrdered By: Renard Burgos on 06-27-2024 Urobilinogen Ql (U) 4 mg/dl High Normal [facility] Urobilinogen Ql (U)Ordered B y: Renard Burgos on 06-27-2024 Urobilinogen (U) [Mass/Vol] 4 mg/dL High Normal [facility] White blood cell countOrdere d By: Renard Burgos on 06-27-2024 Urine WBC 0 SEEN /hpf 0-5 [facility] White blood cell count 0 SEEN /hpf 0-[address] [facility] [address] CHEST WO IV CONTRASTon CT [...] 8:07 AM EST Cough x 2months Normal [facility] CT Chest WO contraston 06-26 Nonspecific groundglass densities are noted in the bilateral lower lobes. Correlate with concern for atypical infection Report Dictated on Electronically Signed By: Maria Eugenia Ruiz MD Electronically Signed Date/Time: 06/26/2024 8:07 AM EST [facility] Patient Name: KATHYA HOOPER : [...] Electronically Signed Date/Time: 06/26/2024 8:07 AM EST [facility] [employer] CT Chest WO contrastOrdered By: Maria Eugenia Ruiz on 06-26-2024 [employer] Work Phone: Absolute lymphocyte countOrd ered By: Renard Burgos on 06-24-2024 Lymphocytes Auto (Unsp spec) [#/Vol] 1.65 10*3/uL 0.83-4.51 [facility] Absolute neutrophil countOrd ered By: Renard Burgos on 06-24-2024 Neutrophils (Bld) [#/Vol] 10.2 10*3/uL High 2.0-7.7 [facility] Automated lymphocyte count a s percentage of total leukocytesOrdered By: Renard Burgos on 06-24-2024 Lymphocytes/100 WBC Auto (Unsp spec) 12.8 % Low 19-41 [facility] Basic Metabolic Profile (BMP )on 06-24-2024 BUN/CRE 24.9 RATIO High 10-20 [facility] Comment on above: Order Comment: 109.1 Performed By: #### L 100.0100, L500.2500 ####[facility] [address] [place], [address] CA,Total 8.3 mg/dL Low 8.5-10.1 [facility] Comment on above: Order Comment: 109.1 Performed By: #### L 100.0100, L500.2500 ####[facility] [address] [place], [address] Chloride [Moles/Vol] 107 mmol/L Normal 98-107 [facility] Comment on above: Order Comment: 109.1 Performed By: #### L 100.0100, L500.2500 ####[facility] [address] [place], [address] CO2 [Moles/Vol] 24.0 mmol/L Normal 21.0-32.0 [facility] Comment on above: Order Comment: 109.1 Performed By: #### L 100.0100, L500.2500 ####[facility] [address] [place], [address] Creatinine [Mass/Vol] 0.60 mg/dL Low 0.70-1.30 [facility] Comment on above: Order Comment: 109.1 Result Comment: The validity of the calculated GFR GFRAA in patients over70 years has not been determined. Clinical correlation isessential. Performed By: #### L 100.0100, L500.2500 ####[facility] [address] [place], [address] EST GFR - AA 172 mL/min Normal >60 [facility] Comment on above: Order Comment: 109.1 Result Comment: Afri can Sudanese GFR Calc Performed By: #### L 100.0100, L500.2500 ####[facility] [address] [place], [address] GAP 8 Normal 5-15 [facility] Comment on above: Order Comment: 109.1 Performed By: #### L 100.0100, L500.2500 ####[facility] [address] [place], [address] GFR/1.73 sq M.predicted among non-blacks MDRD (S/P/Bld) [Vol rate/Area] 142 mL/min/{1.73_m2} Normal >60 [facility] Comment on above: Order Comment: 109.1 Result Comment: Non- GFR Calc Performed By: #### L 100.0100, L500.2500 ####[facility] [address] [place], [address] Glucose [Mass/Vol] 101 mg/dL Normal 74-106 [facility] Comment on above: Order Comment: 109.1 Result Comment: Fast ing Glucose result from 100 to 125 mg/dLsuggests IMPAIRED HOMEOSTASIS per A.D.A. criteria. Performed By: #### L 100.0100, L500.2500 ####[facility] [address] [place], [address] Potassium [Moles/Vol] 4.1 mmol/L Normal 3.5-5.1 [facility] Comment on above: Order Comment: 109.1 Performed By: #### L 100.0100, L500.2500 ####[facility] [address] [place], [address] Sodium [Moles/Vol] 139 mmol/L Normal 136-145 [facility] Comment on above: Order Comment: 109.1 Performed By: #### L 100.0100, L500.2500 ####[facility] [address] [place], [address] Urea nitrogen [Mass/Vol] 15 mg/dL Normal 7-18 [facility] Comment on above: Order Comment: 109.1 Performed By: #### L 100.0100, L500.2500 ####[facility] [address] [place], [address] Basophil percentageOrdered B y: Renard Burgos on 06-24-2024 Basophils/100 WBC (Bld) 0.5 % 0-1 [facility] Blood urea nitrogen (BUN)/cr eatinine ratioOrdered By: Renard Burgos on 06-24-2024 Urea nitrogen/Creatinine [Mass ratio] 24.9 mg/mg High 10-20 [facility] CBC W/Diff, Automatedon - Absolute Lymph 1.65 X10 3/uL Normal 0.83-4.51 [facility] Comment on above: Order Comment: 109.1 Performed By: #### L 100.0100, L500.2500 ####[facility] [address] [place], [address] Absolute Neut 10.2 X10 3/uL High 2.0-7.7 [facility] Comment on above: Order Comment: 109.1 Performed By: #### L 100.0100, L500.2500 ####[facility] [address] [place], [address] Basophils/100 WBC (Bld) 0.5 % Normal 0-1 [facility] Comment on above: Order Comment: 109.1 Performed By: #### L 100.0100, L500.2500 ####[facility] [address] [place], [address] Eosinophils/100 WBC (Bld) 0.8 % Normal 0-5 [facility] Comment on above: Order Comment: 109.1 Performed By: #### L 100.0100, L500.2500 ####[facility] [address] [place], [address] Erythrocyte distribution width (RBC) [Ratio] 13.2 % Normal 11.6-14.6 [facility] Comment on above: Order Comment: 109.1 Performed By: #### L 100.0100, L500.2500 ####[facility] [address] [place], [address] Hematocrit (Bld) [Volume fraction] 41.8 % Normal 40-54 [facility] Comment on above: Order Comment: 109.1 Performed By: #### L 100.0100, L500.2500 ####[facility] [address] [place], [address] Hemoglobin (Bld) [Mass/Vol] 13.6 g/dL Normal 13.0-16.5 [facility] Comment on above: Order Comment: 109.1 Performed By: #### L 100.0100, L500.2500 ####[facility] [address] [place], [address] IG% 0.500 Normal 0.0-0.9 [facility] Comment on above: Order Comment: 109.1 Result Comment: IG% - Immature Granulocytes (promyelocytes, myelocytes andmetamyelocytes) > 1% indicates that a LEFT SHIFT is Present. Performed By: #### L 100.0100, L500.2500 ####[facility] [address] [place], [address] Lymphocytes/100 WBC (Bld) 12.8 % Low 19-41 [facility] Comment on above: Order Comment: 109.1 Performed By: #### L 100.0100, L500.2500 ####[facility] [address] [place], [address] MCH (RBC) [Entitic mass] 30.2 pg Normal 27.0-32.0 [facility] Comment on above: Order Comment: 109.1 Performed By: #### L 100.0100, L500.2500 ####[facility] [address] [place], [address] MCHC (RBC) [Mass/Vol] 32.5 g/dL Normal 32-36 [facility] Comment on above: Order Comment: 109.1 Performed By: #### L 100.0100, L500.2500 ####[facility] [address] [place], [address] MCV (RBC) [Entitic vol] 92.7 fL Normal 80-94 [facility] Comment on above: Order Comment: 109.1 Performed By: #### L 100.0100, L500.2500 ####[facility] [address] [place], [address] Monocytes/100 WBC (Bld) 6.4 % Normal 0-10 [facility] Comment on above: Order Comment: 109.1 Performed By: #### L 100.0100, L500.2500 ####[facility] [address] [place], [address] Neutrophils/100 WBC (Bld) 79.0 % High 47-70 [facility] Comment on above: Order Comment: 109.1 Performed By: #### L 100.0100, L500.2500 ####[facility] [address] [place], [address] Nucleated RBC (Bld) [#/Vol] 0 10*3/uL Normal 0-5 [facility] Comment on above: Order Comment: 109.1 Performed By: #### L 100.0100, L500.2500 ####[facility] [address] [place], [address] Platelet mean volume (Bld) [Entitic vol] 11.3 fL Normal 6.2-12.0 [facility] Comment on above: Order Comment: 109.1 Performed By: #### L 100.0100, L500.2500 ####[facility] [address] [place], [address] Platelets (Bld) [#/Vol] 171 10*3/uL Normal 150-450 [facility] Comment on above: Order Comment: 109.1 Performed By: #### L 100.0100, L500.2500 ####[facility] [address] [place], [address] RBC (Bld) [#/Vol] 4.51 10*6/uL Low 4.6-6.2 [facility] Comment on above: Order Comment: 109.1 Performed By: #### L 100.0100, L500.2500 ####[facility] [address] [place], [address] RDW SD 45.1 fl High 35.1-43.9 [facility] Comment on above: Order Comment: 109.1 Performed By: #### L 100.0100, L500.2500 ####[facility] [address] [place], [address] WBC (Bld) [#/Vol] 12.9 10*3/uL High 4.4-11.0 [facility] Comment on above: Order Comment: 109.1 Performed By: #### L 100.0100, L500.2500 ####[facility] [address] [place], [address] CT Chest WO contraston 06-24 Radiology Study observation (narrative) Ericka smith Carbon dioxide measurementOr dered By: Renard Burgos on 06-24-2024 CO2 [Moles/Vol] 24.0 mmol/L 21.0-32.0 [facility] Chloride measurementOrdered By: Renard Burgos on 06-24-2024 Chloride [Moles/Vol] 107 mmol/L 98-107 [facility] Eosinophil percentageOrdered By: Renard Burgos on 06-24-2024 Eosinophils/100 WBC (Bld) 0.8 % 0-5 [facility] Erythrocyte distribution wid th ratioOrdered By: Renard Burgos on 06-24-2024 Erythrocyte distribution width (RBC) [Ratio] 13.2 % 11.6-14.6 [facility] Erythrocyte distribution wid th standard deviationOrdered By: Renard Burgos on 06-24-2024 Erythrocyte distribution width (RBC) [Entitic vol] 45.1 fL High 35.1-43.9 [facility] Erythrocyte distribution width (RBC) [Ratio] 45.1 fl High 35.1-43.9 [facility] Estimated glomerular filtrat ion rate (GFR) AmericanOrdered By: Renard Burgos on 06-24-2024 Estimated GFR (MDRD) Amer 172 mL/min >60 [facility] Comment on above: GFR Calc Glomerular filtration rate ( GFR) estimationOrdered By: Renard Burgos on 06-24-2024 Estimated GFR (MDRD) Non-Af Amer 142 mL/min >60 [facility] Comment on above: Non- GFR Calc GFR/1.73 sq M.predicted among non-blacks MDRD (S/P/Bld) [Vol rate/Area] 142 mL/min/{1.73_m2} >60 [facility] Comment on above: Non- GFR Calc Glucose measurementOrdered B y: Renard Burgos on 06-24-2024 Glucose [Mass/Vol] 101 mg/dL 74-106 [facility] Comment on above: Fasting Glucose resu lt from 100 to 125 mg/dL suggests IMPAIRED HOMEOSTASIS per A.D.A. criteria. Hematocrit Auto (Bld) [Volum e fraction]Ordered By: Renard Burgos on 06-24-2024 Hematocrit (Bld) [Volume fraction] 41.8 % 40-54 [facility] Hemoglobin measurementOrdere d By: Renard Burgos on 06-24-2024 Hemoglobin (Bld) [Mass/Vol] 13.6 g/dL 13.0-16.5 [facility] Immature granulocytes/100 WB C Auto (Bld)Ordered By: Renard Burgos on 06-24-2024 Immature granulocytes/100 WBC (Bld) 0.500 % 0.0-0.9 [facility] Comment on above: IG% - Immature Granu locytes (promyelocytes, myelocytes and metamyelocytes) > 1% indicates that a LEFT SHIFT is Present. Lymphocytes Auto (Unsp spec) [#/Vol]Ordered By: Renard Burgos on 06-24-2024 Lymphocytes (Bld) [#/Vol] 1.65 10*3/uL 0.83-4.51 [facility] Lymphocytes/100 WBC Auto (Un sp spec)Ordered By: Renard Burgos on 06-24-2024 Lymphocytes/100 WBC (Bld) 12.8 % Low 19-41 [facility] MCV (mean corpuscular volume ) determinationOrdered By: Renard Burgos on 06-24-2024 MCV (RBC) [Entitic vol] 92.7 fL 80-94 [facility] Mean corpuscular hemoglobin (MCH) determinationOrdered By: Renard Burgos on 06-24-2024 MCH (RBC) [Entitic mass] 30.2 pg 27.0-32.0 [facility] Mean corpuscular hemoglobin concentration (MCHC) determinationOrdered By: Renard Burgos on 06-24-2024 MCHC (RBC) [Mass/Vol] 32.5 g/dL 32-36 [facility] Mean platelet volume determi nationOrdered By: Renard Burgos on 06-24-2024 Platelet mean volume (Bld) [Entitic vol] 11.3 fL 6.2-12.0 [facility] Monocyte percentageOrdered B y: Renard Burgos on 06-24-2024 Monocytes/100 WBC (Bld) 6.4 % 0-10 [facility] Neutrophil percentageOrdered By: Renard Burgos on 06-24-2024 Neutrophils/100 WBC (Bld) 79.0 % High 47-70 [facility] Nucleated red blood cell per centageOrdered By: Renard Burgos on 06-24-2024 Nucleated RBC/100 WBC (Bld) [Ratio] 0 % 0-5 [facility] Platelet countOrdered By: Garrick Bhatt on 06-24-2024 Platelets (Bld) [#/Vol] 171 10*3/uL 150-450 [facility] Potassium measurementOrdered By: Renard Burgos on 06-24-2024 Potassium [Moles/Vol] 4.1 mmol/L 3.5-5.1 [facility] RBC Auto (Bld) [#/Vol]Ordere d By: Renard Burgos on 06-24-2024 RBC (Bld) [#/Vol] 4.51 10*6/uL Low 4.6-6.2 [facility] Serum anion gap measurementO rdered By: Renard Burgos on 06-24-2024 Anion gap [Moles/Vol] 8 mmol/L 5-15 [facility] Serum or plasma calcium gordy urement (mass/volume)Ordered By: Renard Burgos on 06-24-2024 Calcium [Mass/Vol] 8.3 mg/dL Low 8.5-10.1 [facility] Serum or plasma creatinine m easurement (mass/volume)Ordered By: Renard Burgos on 06-24-2024 Creatinine [Mass/Vol] 0.60 mg/dL Low 0.70-1.30 [facility] Comment on above: The validity of the calculated GFR & GFRAA in patients over 70 years has not been determined. Clinical correlation is essential. Serum or plasma urea nitroge n measurement (mass/volume)Ordered By: Renard Burgos on 06-24-2024 Urea nitrogen [Mass/Vol] 15 mg/dL 7-18 [facility] Sodium levelOrdered By: Lamine Burgos on 06-24-2024 Sodium [Moles/Vol] 139 mmol/L 136-145 [facility] White blood cell (WBC) count Ordered By: Renard Brugos on 06-24-2024 WBC (Bld) [#/Vol] 12.9 10*3/uL High 4.4-11.0 [facility] Absolute lymphocyte countOrd ered By: Renard Burgos on 06-17-2024 Lymphocytes Auto (Unsp spec) [#/Vol] 2.00 10*3/uL 0.83-4.51 [facility] Absolute neutrophil countOrd ered By: Renard Burgos on 06-17-2024 Neutrophils (Bld) [#/Vol] 5.1 10*3/uL 2.0-7.7 [facility] Automated lymphocyte count a s percentage of total leukocytesOrdered By: Renard Burgos on 06-17-2024 Lymphocytes/100 WBC Auto (Unsp spec) 24.5 % 19-41 [facility] Basophil percentageOrdered B y: Renard Burgos on 06-17-2024 Basophils/100 WBC (Bld) 1.1 % High 0-1 [facility] CBC W/Diff, Automatedon 06-01 Absolute Lymph 2.00 X10 3/uL Normal 0.83-4.51 [facility] Comment on above: Order Comment: 109-1 Performed By: #### L 100.0100 ####[facility] [address] [place], [address] Absolute Neut 5.1 X10 3/uL Normal 2.0-7.7 [facility] Comment on above: Order Comment: 109-1 Performed By: #### L 100.0100 ####[facility] [address] [place], [address] Basophils/100 WBC (Bld) 1.1 % High 0-1 [facility] Comment on above: Order Comment: 109-1 Performed By: #### L 100.0100 ####[facility] [address] [place], [address] Eosinophils/100 WBC (Bld) 3.4 % Normal 0-5 [facility] Comment on above: Order Comment: 109-1 Performed By: #### L 100.0100 ####[facility] [address] [place], [address] Erythrocyte distribution width (RBC) [Ratio] 13.3 % Normal 11.6-14.6 [facility] Comment on above: Order Comment: 109-1 Performed By: #### L 100.0100 ####[facility] [address] [place], [address] Hematocrit (Bld) [Volume fraction] 39.3 % Low 40-54 [facility] Comment on above: Order Comment: 109-1 Performed By: #### L 100.0100 ####[facility] [address] [place], [address] Hemoglobin (Bld) [Mass/Vol] 12.8 g/dL Low 13.0-16.5 [facility] Comment on above: Order Comment: 109-1 Performed By: #### L 100.0100 ####[facility] [address] [place], [address] IG% 0.200 Normal 0.0-0.9 [facility] [facility] Comment on above: Order Comment: 109-1 Result Comment: IG% - Immature Granulocytes (promyelocytes, myelocytes andmetamyelocytes) > 1% indicates that a LEFT SHIFT is Present. Performed By: #### L 100.0100 ####[facility] [address] [place], [address] Lymphocytes/100 WBC (Bld) 24.5 % Normal 19-41 [facility] Comment on above: Order Comment: 109-1 Performed By: #### L 100.0100 ####[facility] [address] [place], [address] MCH (RBC) [Entitic mass] 29.6 pg Normal 27.0-32.0 [facility] Comment on above: Order Comment: 109-1 Performed By: #### L 100.0100 ####[facility] [address] [place], [address] MCHC (RBC) [Mass/Vol] 32.6 g/dL Normal 32-36 [facility] Comment on above: Order Comment: 109-1 Performed By: #### L 100.0100 ####[facility] [address] [place], [address] MCV (RBC) [Entitic vol] 90.8 fL Normal 80-94 [facility] Comment on above: Order Comment: 109-1 Performed By: #### L 100.0100 ####[facility] [address] [place], [address] Monocytes/100 WBC (Bld) 8.8 % Normal 0-10 [facility] Comment on above: Order Comment: 109-1 Performed By: #### L 100.0100 ####[facility] [address] [place], [address] Neutrophils/100 WBC (Bld) 62.0 % Normal 47-70 [facility] Comment on above: Order Comment: 109-1 Performed By: #### L 100.0100 ####[facility] [address] [place], [address] Nucleated RBC (Bld) [#/Vol] 0 10*3/uL Normal 0-5 [facility] Comment on above: Order Comment: 109-1 Performed By: #### L 100.0100 ####[facility] [address] [place], [address] Platelet mean volume (Bld) [Entitic vol] 10.9 fL Normal 6.2-12.0 [facility] Comment on above: Order Comment: 109-1 Performed By: #### L 100.0100 ####[facility] [address] [place], [address] Platelets (Bld) [#/Vol] 218 10*3/uL Normal 150-450 [facility] Comment on above: Order Comment: 109-1 Performed By: #### L 100.0100 ####[facility] [address] [place], [address] RBC (Bld) [#/Vol] 4.33 10*6/uL Low 4.6-6.2 [facility] Comment on above: Order Comment: 109-1 Performed By: #### L 100.0100 ####[facility] [address] [place], [address] RDW SD 44.0 fl High 35.1-43.9 [facility] Comment on above: Order Comment: 109-1 Performed By: #### L 100.0100 ####[facility] [address] [place], [address] WBC (Bld) [#/Vol] 8.2 10*3/uL Normal 4.4-11.0 [facility] Comment on above: Order Comment: 109-1 Performed By: #### L 100.0100 ####[facility] [address] [place], [address] Eosinophil percentageOrdered By: Renard Burgos on 06-17-2024 Eosinophils/100 WBC (Bld) 3.4 % 0-5 [facility] Erythrocyte distribution wid th ratioOrdered By: Renard Burgos on 06-17-2024 Erythrocyte distribution width (RBC) [Ratio] 13.3 % 11.6-14.6 [facility] Erythrocyte distribution wid th standard deviationOrdered By: Renard Burgos on 06-17-2024 Erythrocyte distribution width (RBC) [Entitic vol] 44.0 fL High 35.1-43.9 [facility] Erythrocyte distribution width (RBC) [Ratio] 44.0 fl High 35.1-43.9 [facility] Hematocrit Auto (Bld) [Volum e fraction]Ordered By: Renard Burgos on 06-17-2024 Hematocrit (Bld) [Volume fraction] 39.3 % Low 40-54 [facility] Hemoglobin measurementOrdere d By: Renard Burgos on 06-17-2024 Hemoglobin (Bld) [Mass/Vol] 12.8 g/dL Low 13.0-16.5 [facility] Immature granulocytes/100 WB C Auto (Bld)Ordered By: Renard Burgos on 06-17-2024 Immature granulocytes/100 WBC (Bld) 0.200 % 0.0-0.9 [facility] Comment on above: IG% - Immature Granu locytes (promyelocytes, myelocytes and metamyelocytes) > 1% indicates that a LEFT SHIFT is Present. Lymphocytes Auto (Unsp spec) [#/Vol]Ordered By: Renard Burgos on 06-17-2024 Lymphocytes (Bld) [#/Vol] 2.00 10*3/uL 0.83-4.51 [facility] Lymphocytes/100 WBC Auto (Un sp spec)Ordered By: Renard Burgos on 06-17-2024 Lymphocytes/100 WBC (Bld) 24.5 % 19-41 [facility] MCV (mean corpuscular volume ) determinationOrdered By: Renard Burgos on 06-17-2024 MCV (RBC) [Entitic vol] 90.8 fL 80-94 [facility] Mean corpuscular hemoglobin (MCH) determinationOrdered By: Renard Burgos on 06-17-2024 MCH (RBC) [Entitic mass] 29.6 pg 27.0-32.0 [facility] Mean corpuscular hemoglobin concentration (MCHC) determinationOrdered By: Renard Burgos on 06-17-2024 MCHC (RBC) [Mass/Vol] 32.6 g/dL 32-36 [facility] Mean platelet volume determi nationOrdered By: Renard Burgos on 06-17-2024 Platelet mean volume (Bld) [Entitic vol] 10.9 fL 6.2-12.0 [facility] Monocyte percentageOrdered B y: Renard Burgos on 06-17-2024 Monocytes/100 WBC (Bld) 8.8 % 0-10 [facility] Neutrophil percentageOrdered By: Renard Burgos on 06-17-2024 Neutrophils/100 WBC (Bld) 62.0 % 47-70 [facility] Nucleated red blood cell per centageOrdered By: Renard Burgos on 06-17-2024 Nucleated RBC/100 WBC (Bld) [Ratio] 0 % 0-5 [facility] Platelet countOrdered By: Garrick Bhatt on 06-17-2024 Platelets (Bld) [#/Vol] 218 10*3/uL 150-450 [facility] RBC Auto (Bld) [#/Vol]Ordere d By: Renard Burgos on 06-17-2024 RBC (Bld) [#/Vol] 4.33 10*6/uL Low 4.6-6.2 [facility] White blood cell (WBC) count Ordered By: Renard Burgos on 06-17-2024 WBC (Bld) [#/Vol] 8.2 10*3/uL 4.4-11.0 [facility] Absolute lymphocyte countOrd ered By: Renard Burgos on 06-10-2024 Lymphocytes Auto (Unsp spec) [#/Vol] 2.38 10*3/uL 0.83-4.51 [facility] Absolute neutrophil countOrd ered By: Renard Burgos on 06-10-2024 Neutrophils (Bld) [#/Vol] 5.3 10*3/uL 2.0-7.7 [facility] Automated lymphocyte count a s percentage of total leukocytesOrdered By: Renard Burgos on 06-10-2024 Lymphocytes/100 WBC Auto (Unsp spec) 27.5 % 19-41 [facility] Basophil percentageOrdered B y: Renard Burgos on 06-10-2024 Basophils/100 WBC (Bld) 0.7 % 0-1 [facility] CBC W/Diff, Automatedon 06-01 Absolute Lymph 2.38 X10 3/uL Normal 0.83-4.51 [facility] Comment on above: Order Comment: 109.1 Performed By: #### L 100.0100 ####[facility] [address] [place], [place], [address] Absolute Neut 5.3 X10 3/uL Normal 2.0-7.7 [facility] Comment on above: Order Comment: 109.1 Performed By: #### L 100.0100 ####[facility] [address] [place], [address] Basophils/100 WBC (Bld) 0.7 % Normal 0-1 [facility] Comment on above: Order Comment: 109.1 Performed By: #### L 100.0100 ####[facility] [address] [place], [address] Eosinophils/100 WBC (Bld) 0.7 % Normal 0-5 [facility] Comment on above: Order Comment: 109.1 Performed By: #### L 100.0100 ####[facility] [address] [place], [address] Erythrocyte distribution width (RBC) [Ratio] 13.1 % Normal 11.6-14.6 [facility] Comment on above: Order Comment: 109.1 Performed By: #### L 100.0100 ####[facility] [address] [place], [address] Hematocrit (Bld) [Volume fraction] 41.1 % Normal 40-54 [facility] Comment on above: Order Comment: 109.1 Performed By: #### L 100.0100 ####[facility] [address] [place], [address] Hemoglobin (Bld) [Mass/Vol] 13.5 g/dL Normal 13.0-16.5 [facility] Comment on above: Order Comment: 109.1 Performed By: #### L 100.0100 ####[facility] [address] [place], [address] IG% 0.500 Normal 0.0-0.9 [facility] Comment on above: Order Comment: 109.1 Result Comment: IG% - Immature Granulocytes (promyelocytes, myelocytes andmetamyelocytes) > 1% indicates that a LEFT SHIFT is Present. Performed By: #### L 100.0100 ####[facility] [address] [place], [address] Lymphocytes/100 WBC (Bld) 27.5 % Normal 19-41 [facility] Comment on above: Order Comment: 109.1 Performed By: #### L 100.0100 ####[facility] [address] [place], [address] MCH (RBC) [Entitic mass] 30.1 pg Normal 27.0-32.0 [facility] Comment on above: Order Comment: 109.1 Performed By: #### L 100.0100 ####[facility] [address] [place], [address] MCHC (RBC) [Mass/Vol] 32.8 g/dL Normal 32-36 [facility] Comment on above: Order Comment: 109.1 Performed By: #### L 100.0100 ####[facility] [address] [place], [address] MCV (RBC) [Entitic vol] 91.7 fL Normal 80-94 [facility] Comment on above: Order Comment: 109.1 Performed By: #### L 100.0100 ####[facility] [address] [place], [address] Monocytes/100 WBC (Bld) 9.6 % Normal 0-10 [facility] Comment on above: Order Comment: 109.1 Performed By: #### L 100.0100 ####[facility] [address] [place], [address] Neutrophils/100 WBC (Bld) 61.0 % Normal 47-70 [facility] Comment on above: Order Comment: 109.1 Performed By: #### L 100.0100 ####[facility] [address] [place], [address] Nucleated RBC (Bld) [#/Vol] 0 10*3/uL Normal 0-5 [facility] Comment on above: Order Comment: 109.1 Performed By: #### L 100.0100 ####[facility] [address] [place], [address] Platelet mean volume (Bld) [Entitic vol] 11.0 fL Normal 6.2-12.0 [facility] Comment on above: Order Comment: 109.1 Performed By: #### L 100.0100 ####[facility] [address] [place], [address] Platelets (Bld) [#/Vol] 261 10*3/uL Normal 150-450 [facility] Comment on above: Order Comment: 109.1 Performed By: #### L 100.0100 ####[facility] [address] [place], [address] RBC (Bld) [#/Vol] 4.48 10*6/uL Low 4.6-6.2 [facility] Comment on above: Order Comment: 109.1 Performed By: #### L 100.0100 ####[facility] [address] [place], [address] RDW SD 43.2 fl Normal 35.1-43.9 [facility] Comment on above: Order Comment: 109.1 Performed By: #### L 100.0100 ####[facility] [address] [place], [address] WBC (Bld) [#/Vol] 8.6 10*3/uL Normal 4.4-11.0 [facility] Comment on above: Order Comment: 109.1 Performed By: #### L 100.0100 ####[facility] [address] [place], [address] Eosinophil percentageOrdered By: Renard Burgos on 06-10-2024 Eosinophils/100 WBC (Bld) 0.7 % 0-5 [facility] Erythrocyte distribution wid th ratioOrdered By: Renard Burgos on 06-10-2024 Erythrocyte distribution width (RBC) [Ratio] 13.1 % 11.6-14.6 [facility] Erythrocyte distribution wid th standard deviationOrdered By: Renard Burgos on 06-10-2024 Erythrocyte distribution width (RBC) [Entitic vol] 43.2 fL 35.1-43.9 [facility] Erythrocyte distribution width (RBC) [Ratio] 43.2 fl 35.1-43.9 [facility] Hematocrit Auto (Bld) [Volum e fraction]Ordered By: Renard Burgos on 06-10-2024 Hematocrit (Bld) [Volume fraction] 41.1 % 40-54 [facility] Hemoglobin measurementOrdere d By: Renard Burgos on 06-10-2024 Hemoglobin (Bld) [Mass/Vol] 13.5 g/dL 13.0-16.5 [facility] Immature granulocytes/100 WB C Auto (Bld)Ordered By: Renard Burgos on 06-10-2024 Immature granulocytes/100 WBC (Bld) 0.500 % 0.0-0.9 [facility] Comment on above: IG% - Immature Granu locytes (promyelocytes, myelocytes and metamyelocytes) > 1% indicates that a LEFT SHIFT is Present. Lymphocytes Auto (Unsp spec) [#/Vol]Ordered By: Renard Burgos on 06-10-2024 Lymphocytes (Bld) [#/Vol] 2.38 10*3/uL 0.83-4.51 [facility] Lymphocytes/100 WBC Auto (Un sp spec)Ordered By: Renard Burgos on 06-10-2024 Lymphocytes/100 WBC (Bld) 27.5 % 19-41 [facility] MCV (mean corpuscular volume ) determinationOrdered By: Renard Burgos on 06-10-2024 MCV (RBC) [Entitic vol] 91.7 fL 80-94 [facility] Mean corpuscular hemoglobin (MCH) determinationOrdered By: Renard Burgos on 06-10-2024 MCH (RBC) [Entitic mass] 30.1 pg 27.0-32.0 [facility] Mean corpuscular hemoglobin concentration (MCHC) determinationOrdered By: Renard Burgos on 06-10-2024 MCHC (RBC) [Mass/Vol] 32.8 g/dL 32-36 [facility] Mean platelet volume determi nationOrdered By: Renard Burgos on 06-10-2024 Platelet mean volume (Bld) [Entitic vol] 11.0 fL 6.2-12.0 [facility] Monocyte percentageOrdered B y: Renard Burgos on 06-10-2024 Monocytes/100 WBC (Bld) 9.6 % 0-10 [facility] Neutrophil percentageOrdered By: Renard Burgos on 06-10-2024 Neutrophils/100 WBC (Bld) 61.0 % 47-70 [facility] Nucleated red blood cell per centageOrdered By: Renard Burgos on 06-10-2024 Nucleated RBC/100 WBC (Bld) [Ratio] 0 % 0-5 [facility] Platelet countOrdered By: Garrick Bhatt on 06-10-2024 Platelets (Bld) [#/Vol] 261 10*3/uL 150-450 [facility] RBC Auto (Bld) [#/Vol]Ordere d By: Renard Burgos on 06-10-2024 RBC (Bld) [#/Vol] 4.48 10*6/uL Low 4.6-6.2 [facility] Urine Cultureon 06-10-2024 URC Normal [facility] Comment on above: Performed By: #### M 100.2200, L400.0001 ####[facility] [address] [place], [place], [id number] White blood cell (WBC) count Ordered By: Renard Burgos on 06-10-2024 WBC (Bld) [#/Vol] 8.6 10*3/uL 4.4-11.0 [facility] Bilirubin Test strip Ql (U)O rdered By: Renard Burgos on 06-07-2024 Bilirubin Ql (U) Negative Negative [facility] CBC-Complete Blood Cnt No Di ffon 06-07-2024 Erythrocyte distribution width (RBC) [Ratio] 13.0 % Normal 11.6-14.6 [facility] Comment on above: Order Comment: 109-1 Performed By: #### L 100.0500 ####[facility] [address] [place], [address] Hematocrit (Bld) [Volume fraction] 39.3 % Low 40-54 [facility] Comment on above: Order Comment: 109-1 Performed By: #### L 100.0500 ####[facility] [address] [place], [address] Hemoglobin (Bld) [Mass/Vol] 13.0 g/dL Normal 13.0-16.5 [facility] Comment on above: Order Comment: 109-1 Performed By: #### L 100.0500 ####[facility] [address] [place], [address] MCH (RBC) [Entitic mass] 30.2 pg Normal 27.0-32.0 [facility] Comment on above: Order Comment: 109-1 Performed By: #### L 100.0500 ####[facility] [address] [place], [address] MCHC (RBC) [Mass/Vol] 33.1 g/dL Normal 32-36 [facility] Comment on above: Order Comment: 109-1 Performed By: #### L 100.0500 ####[facility] [address] [place], [address] MCV (RBC) [Entitic vol] 91.2 fL Normal 80-94 [facility] Comment on above: Order Comment: 109-1 Performed By: #### L 100.0500 ####[facility] [address] [place], [address] Platelet mean volume (Bld) [Entitic vol] 10.8 fL Normal 6.2-12.0 [facility] Comment on above: Order Comment: 109-1 Performed By: #### L 100.0500 ####[facility] [address] [place], [address] Platelets (Bld) [#/Vol] 251 10*3/uL Normal 150-450 [facility] Comment on above: Order Comment: 109-1 Performed By: #### L 100.0500 ####[facility] [address] [place], [address] RBC (Bld) [#/Vol] 4.31 10*6/uL Low 4.6-6.2 [facility] Comment on above: Order Comment: 109-1 Performed By: #### L 100.0500 ####[facility] [address] [place], [address] RDW SD 43.7 fl Normal 35.1-43.9 [facility] Comment on above: Order Comment: 109-1 Performed By: #### L 100.0500 ####[facility] [address] [place], [address] WBC (Bld) [#/Vol] 9.9 10*3/uL Normal 4.4-11.0 [facility] Comment on above: Order Comment: 109-1 Performed By: #### L 100.0500 ####[facility] [address] [place], [address] Epithelial cells.squamous LM Ql (Urine sed)Ordered By: Renard Burgos on 06-07-2024 Epithelial cells.squamous LM.HPF (Urine sed) [#/Area] 0 /[HPF] 0-5 [facility] Erythrocyte distribution wid th ratioOrdered By: Renard Burgos on 06-07-2024 Erythrocyte distribution width (RBC) [Ratio] 13.0 % 11.6-14.6 [facility] Erythrocyte distribution wid th standard deviationOrdered By: Renard Burgos on 06-07-2024 Erythrocyte distribution width (RBC) [Entitic vol] 43.7 fL 35.1-43.9 [facility] Erythrocyte distribution width (RBC) [Ratio] 43.7 fl 35.1-43.9 [facility] Glucose Ql (U)Ordered By: Garrick Bhatt on 06-07-2024 Urine Glucose (UA) Normal mg/dl Normal [facility] Hematocrit Auto (Bld) [Volum e fraction]Ordered By: Renard Burgos on 06-07-2024 Hematocrit (Bld) [Volume fraction] 39.3 % Low 40-54 [facility] Hemoglobin measurementOrdere d By: Renard Burgos on 06-07-2024 Hemoglobin (Bld) [Mass/Vol] 13.0 g/dL 13.0-16.5 [facility] Ketones Test strip Ql (U)Ord ered By: Renard Burgos on 06-07-2024 Ketones Ql (U) Negative Negative [facility] MCV (mean corpuscular volume ) determinationOrdered By: Renard Burgos on 06-07-2024 MCV (RBC) [Entitic vol] 91.2 fL 80-94 [facility] Mean corpuscular hemoglobin (MCH) determinationOrdered By: Renard Burgos on 06-07-2024 MCH (RBC) [Entitic mass] 30.2 pg 27.0-32.0 [facility] Mean corpuscular hemoglobin concentration (MCHC) determinationOrdered By: Renard Burgos on 06-07-2024 MCHC (RBC) [Mass/Vol] 33.1 g/dL 32-36 [facility] Mean platelet volume determi nationOrdered By: Renard Burgos on 06-07-2024 Platelet mean volume (Bld) [Entitic vol] 10.8 fL 6.2-12.0 [facility] Microscopic analysis of urin e for red blood cells (RBC)Ordered By: Renard Burgos on 06-07-2024 Microscopic analysis of urine for red blood cells (RBC) 0 SEEN /hpf 0-5 [facility] Urine RBC 0 SEEN /hpf 0-5 [facility] Mucus LM Ql (Urine sed)Order ed By: Renard Burgos on 06-07-2024 Mucus Ql (Urine sed) 0 SEEN /hpf [facility] Nitrite Test strip Ql (U)Ord ered By: Renard Burgos on 06-07-2024 Nitrite Ql (U) Negative Negative [facility] Platelet countOrdered By: Garrick Bhatt on 06-07-2024 Platelets (Bld) [#/Vol] 251 10*3/uL 150-450 [facility] Protein Test strip Ql (U)Ord ered By: Renard Burgos on 06-07-2024 Protein Ql (U) 15 mg/dl High Negative [facility] RBC Auto (Bld) [#/Vol]Ordere d By: Renard Burgos on 06-07-2024 RBC (Bld) [#/Vol] 4.31 10*6/uL Low 4.6-6.2 [facility] Squamous epithelial cells de tection in urine sediment by light microscopyOrdered By: Renard Burgos on 06-07-2024 Epithelial cells.squamous LM Ql (Urine sed) 0-5 SEEN /hpf 0-5 [facility] Urinalysis, Completeon 06-07 Mucus Ql (Urine sed) 0 SEEN Normal [facility] Comment on above: Order Comment: CLEAN CATCH Performed By: #### M 100.2200, L400.0001 ####[facility] [address] [place], [address] Urine blood detectionOrdered By: Renard Burgos on 06-07-2024 Urine Occult Blood Negative Negative [facility] Urine clarityOrdered By: Lyubov Burgos on 06-07-2024 Clarity (U) Clear Clear [facility] Urine color determinationOrd ered By: Renard Burgos on 06-07-2024 Color (U) Yellow Yellow [facility] Urine cultureOrdered By: Lyubov Burgos on 06-07-2024 Bacteria identified Cx Nom (U) Pseudomonas aeruginosa Abnormal [facility] Bacteria identified Cx Nom (U) Pseudomonas aeruginosa Abnormal [facility] Urine glucose detectionOrder ed By: Renard Burgos on 06-07-2024 Glucose Ql (U) Normal mg/dl Normal [facility] Urine leukocyte esterase det ection by dipstickOrdered By: Renard Burgos on 06-07-2024 Leukocyte esterase Test strip Ql (U) Negative Negative [facility] Urine pHOrdered By: Renard ocampo on 06-07-2024 pH (U) 7.0 [pH] 5.0 - 8.0 [facility] Urine sediment bacteria coun t by microscopy (number/high power field)Ordered By: Renard Burgos on 06-07-2024 Bacteria LM.HPF (Urine sed) [#/Area] 2 /[HPF] None Seen [facility] Urine sediment yeast count b y microscopy (number/high powered field)Ordered By: Renard Burgos on 06-07-2024 Yeast LM.HPF (Urine sed) [#/Area] 1 /[HPF] None Seen [facility] Urine specific gravity measu rementOrdered By: Renard Burgos on 06-07-2024 Specific gravity (U) [Rel density] 1.010 1.002-1.030 [facility] Urine urobilinogen measureme ntOrdered By: Renard Burgos on 06-07-2024 Urobilinogen Ql (U) 1 mg/dl High Normal [facility] Urobilinogen Ql (U)Ordered B y: Renard Burgos on 06-07-2024 Urobilinogen (U) [Mass/Vol] 1 mg/dL High Normal [facility] White blood cell (WBC) count Ordered By: Renard Burgos on 06-07-2024 WBC (Bld) [#/Vol] 9.9 10*3/uL 4.4-11.0 [facility] White blood cell countOrdere d By: Renard Burgos on 06-07-2024 Urine WBC 0-5 SEEN /hpf 0-5 [facility] White blood cell count 0-5 SEEN /hpf 0-5 [facility] Yeast LM.HPF (Urine sed) [#/ Area]Ordered By: Renard Burgos on 06-07-2024 Urine Yeast 1+ /hpf None Seen [facility] Absolute lymphocyte countOrd ered By: Renard Burgos on 06-03-2024 Lymphocytes Auto (Unsp spec) [#/Vol] 1.94 10*3/uL 0.83-4.51 [facility] Absolute neutrophil countOrd ered By: Renard Burgos on 06-03-2024 Neutrophils (Bld) [#/Vol] 9.5 10*3/uL High 2.0-7.7 [facility] Automated lymphocyte count a s percentage of total leukocytesOrdered By: Renard Burgos on 06-03-2024 Lymphocytes/100 WBC Auto (Unsp spec) 15.7 % Low 19-41 [facility] Basophil percentageOrdered B y: Renard Burgos on 06-03-2024 Basophils/100 WBC (Bld) 0.5 % 0-1 [facility] CBC W/Diff, Automatedon Absolute Lymph 1.94 X10 3/uL Normal 0.83-4.51 [facility] Comment on above: Order Comment: 109-1 Performed By: #### L 100.0100 ####[facility] [facility] [address] [place], [address] Absolute Neut 9.5 X10 3/uL High 2.0-7.7 [facility] Comment on above: Order Comment: 109-1 Performed By: #### L 100.0100 ####[facility] [address] [place], [address] Basophils/100 WBC (Bld) 0.5 % Normal 0-1 [facility] Comment on above: Order Comment: 109-1 Performed By: #### L 100.0100 ####[facility] [address] [place], [address] Eosinophils/100 WBC (Bld) 0.3 % Normal 0-5 [facility] Comment on above: Order Comment: 109-1 Performed By: #### L 100.0100 ####[facility] [address] [place], [address] Erythrocyte distribution width (RBC) [Ratio] 13.0 % Normal 11.6-14.6 [facility] Comment on above: Order Comment: 109-1 Performed By: #### L 100.0100 ####[facility] [address] [place], [address] Hematocrit (Bld) [Volume fraction] 40.1 % Normal 40-54 [facility] Comment on above: Order Comment: 109-1 Performed By: #### L 100.0100 ####[facility] [address] [place], [address] Hemoglobin (Bld) [Mass/Vol] 13.2 g/dL Normal 13.0-16.5 [facility] Comment on above: Order Comment: 109-1 Performed By: #### L 100.0100 ####[facility] [address] [place], [address] IG% 0.400 Normal 0.0-0.9 [facility] Comment on above: Order Comment: 109-1 Result Comment: IG% - Immature Granulocytes (promyelocytes, myelocytes andmetamyelocytes) > 1% indicates that a LEFT SHIFT is Present. Performed By: #### L 100.0100 ####[facility] [address] [place], [address] Lymphocytes/100 WBC (Bld) 15.7 % Low 19-41 [facility] Comment on above: Order Comment: 109-1 Performed By: #### L 100.0100 ####[facility] [address] [place], [address] MCH (RBC) [Entitic mass] 30.1 pg Normal 27.0-32.0 [facility] Comment on above: Order Comment: 109-1 Performed By: #### L 100.0100 ####[facility] [address] [place], [address] MCHC (RBC) [Mass/Vol] 32.9 g/dL Normal 32-36 [facility] Comment on above: Order Comment: 109-1 Performed By: #### L 100.0100 ####[facility] [address] [place], [address] MCV (RBC) [Entitic vol] 91.3 fL Normal 80-94 [facility] Comment on above: Order Comment: 109-1 Performed By: #### L 100.0100 ####[facility] [address] [place], [address] Monocytes/100 WBC (Bld) 6.6 % Normal 0-10 [facility] Comment on above: Order Comment: 109-1 Performed By: #### L 100.0100 ####[facility] [address] [place], [address] Neutrophils/100 WBC (Bld) 76.5 % High 47-70 [facility] Comment on above: Order Comment: 109-1 Performed By: #### L 100.0100 ####[facility] [address] [place], [address] Nucleated RBC (Bld) [#/Vol] 0 10*3/uL Normal 0-5 [facility] Comment on above: Order Comment: 109-1 Performed By: #### L 100.0100 ####[facility] [address] [place], [address] Platelet mean volume (Bld) [Entitic vol] 11.1 fL Normal 6.2-12.0 [facility] Comment on above: Order Comment: 109-1 Performed By: #### L 100.0100 ####[facility] [address] [place], [address] Platelets (Bld) [#/Vol] 249 10*3/uL Normal 150-450 [facility] Comment on above: Order Comment: 109-1 Performed By: #### L 100.0100 ####[facility] [address] [place], [address] RBC (Bld) [#/Vol] 4.39 10*6/uL Low 4.6-6.2 [facility] Comment on above: Order Comment: 109-1 Performed By: #### L 100.0100 ####[facility] [address] [place], [address] RDW SD 42.8 fl Normal 35.1-43.9 [facility] Comment on above: Order Comment: 109-1 Performed By: #### L 100.0100 ####[facility] [address] [place], [address] WBC (Bld) [#/Vol] 12.4 10*3/uL High 4.4-11.0 [facility] Comment on above: Order Comment: 109-1 Performed By: #### L 100.0100 ####[facility] [address] [place], [address] Eosinophil percentageOrdered By: Renard Burgos on 06-03-2024 Eosinophils/100 WBC (Bld) 0.3 % 0-5 [facility] Erythrocyte distribution wid th ratioOrdered By: Renard Burgos on 06-03-2024 Erythrocyte distribution width (RBC) [Ratio] 13.0 % 11.6-14.6 [facility] Erythrocyte distribution wid th standard deviationOrdered By: Renard Burgos on 06-03-2024 Erythrocyte distribution width (RBC) [Entitic vol] 42.8 fL 35.1-43.9 [facility] Erythrocyte distribution width (RBC) [Ratio] 42.8 fl 35.1-43.9 [facility] Hematocrit Auto (Bld) [Volum e fraction]Ordered By: Renard Burgos on 06-03-2024 Hematocrit (Bld) [Volume fraction] 40.1 % 40-54 [facility] Hemoglobin measurementOrdere d By: Renard Burgos on 06-03-2024 Hemoglobin (Bld) [Mass/Vol] 13.2 g/dL 13.0-16.5 [facility] Immature granulocytes/100 WB C Auto (Bld)Ordered By: Renard Burgos on 06-03-2024 Immature granulocytes/100 WBC (Bld) 0.400 % 0.0-0.9 [facility] Comment on above: IG% - Immature Granu locytes (promyelocytes, myelocytes and metamyelocytes) > 1% indicates that a LEFT SHIFT is Present. Lymphocytes Auto (Unsp spec) [#/Vol]Ordered By: Renard Burgos on 06-03-2024 Lymphocytes (Bld) [#/Vol] 1.94 10*3/uL 0.83-4.51 [facility] Lymphocytes/100 WBC Auto (Un sp spec)Ordered By: Renard Burgos on 06-03-2024 Lymphocytes/100 WBC (Bld) 15.7 % Low 19-41 [facility] MCV (mean corpuscular volume ) determinationOrdered By: Renard Burgos on 06-03-2024 MCV (RBC) [Entitic vol] 91.3 fL 80-94 [facility] Mean corpuscular hemoglobin (MCH) determinationOrdered By: Renard Burgos on 06-03-2024 MCH (RBC) [Entitic mass] 30.1 pg 27.0-32.0 [facility] Mean corpuscular hemoglobin concentration (MCHC) determinationOrdered By: Renard Burgos on 06-03-2024 MCHC (RBC) [Mass/Vol] 32.9 g/dL 32-36 [facility] Mean platelet volume determi nationOrdered By: Renard Burgos on 06-03-2024 Platelet mean volume (Bld) [Entitic vol] 11.1 fL 6.2-12.0 [facility] Monocyte percentageOrdered B y: Renard Burgos on 06-03-2024 Monocytes/100 WBC (Bld) 6.6 % 0-10 [facility] Neutrophil percentageOrdered By: Renard Burgos on 06-03-2024 Neutrophils/100 WBC (Bld) 76.5 % High 47-70 [facility] Nucleated red blood cell per centageOrdered By: Renard Burgos on 06-03-2024 Nucleated RBC/100 WBC (Bld) [Ratio] 0 % 0-5 [facility] Platelet countOrdered By: Garrick Bhatt on 06-03-2024 Platelets (Bld) [#/Vol] 249 10*3/uL 150-450 [facility] RBC Auto (Bld) [#/Vol]Ordere d By: Renard Burgos on 06-03-2024 RBC (Bld) [#/Vol] 4.39 10*6/uL Low 4.6-6.2 [facility] White blood cell (WBC) count Ordered By: Renard Burgos on 06-03-2024 WBC (Bld) [#/Vol] 12.4 10*3/uL High 4.4-11.0 [facility] Absolute lymphocyte countOrd ered By: Renard Burgos on 05-27-2024 Lymphocytes Auto (Unsp spec) [#/Vol] 1.81 10*3/uL 0.83-4.51 [facility] Absolute neutrophil countOrd ered By: Renard Burgos on 05-27-2024 Neutrophils (Bld) [#/Vol] 5.0 10*3/uL 2.0-7.7 [facility] Automated lymphocyte count a s percentage of total leukocytesOrdered By: Renard Burgos on 05-27-2024 Lymphocytes/100 WBC Auto (Unsp spec) 24.4 % 19-41 [facility] Basophil percentageOrdered B y: Renard Burgos on 05-27-2024 Basophils/100 WBC (Bld) 0.5 % 0-1 [facility] CBC W/Diff, Automatedon 05-02 Absolute Lymph 1.81 X10 3/uL Normal 0.83-4.51 [facility] Comment on above: Order Comment: 109.1 Performed By: #### L 100.0100 ####[facility] [address] [place], [address] Absolute Neut 5.0 X10 3/uL Normal 2.0-7.7 [facility] Comment on above: Order Comment: 109.1 Performed By: #### L 100.0100 ####[facility] [address] [place], [address] Basophils/100 WBC (Bld) 0.5 % Normal 0-1 [facility] Comment on above: Order Comment: 109.1 Performed By: #### L 100.0100 ####[facility] [address] [place], [address] Eosinophils/100 WBC (Bld) 0.5 % Normal 0-5 [facility] Comment on above: Order Comment: 109.1 Performed By: #### L 100.0100 ####[facility] [address] [place], [address] Erythrocyte distribution width (RBC) [Ratio] 12.8 % Normal 11.6-14.6 [facility] Comment on above: Order Comment: 109.1 Performed By: #### L 100.0100 ####[facility] [address] [place], [address] Hematocrit (Bld) [Volume fraction] 39.8 % Low 40-54 [facility] Comment on above: Order Comment: 109.1 Performed By: #### L 100.0100 ####[facility] [address] [place], [address] Hemoglobin (Bld) [Mass/Vol] 13.2 g/dL Normal 13.0-16.5 [facility] Comment on above: Order Comment: 109.1 Performed By: #### L 100.0100 ####[facility] [address] [place], [address] IG% 0.400 Normal 0.0-0.9 [facility] Comment on above: Order Comment: 109.1 Result Comment: IG% - Immature Granulocytes (promyelocytes, myelocytes andmetamyelocytes) > 1% indicates that a LEFT SHIFT is Present. Performed By: #### L 100.0100 ####[facility] [address] [place], [address] Lymphocytes/100 WBC (Bld) 24.4 % Normal 19-41 [facility] Comment on above: Order Comment: 109.1 Performed By: #### L 100.0100 ####[facility] [address] [place], [address] MCH (RBC) [Entitic mass] 30.2 pg Normal 27.0-32.0 [facility] Comment on above: Order Comment: 109.1 Performed By: #### L 100.0100 ####[facility] [address] [place], [address] MCHC (RBC) [Mass/Vol] 33.2 g/dL Normal 32-36 [facility] Comment on above: Order Comment: 109.1 Performed By: #### L 100.0100 ####[facility] [address] [place], [address] MCV (RBC) [Entitic vol] 91.1 fL Normal 80-94 [facility] Comment on above: Order Comment: 109.1 Performed By: #### L 100.0100 ####[facility] [address] [place], [address] Monocytes/100 WBC (Bld) 7.0 % Normal 0-10 [facility] Comment on above: Order Comment: 109.1 Performed By: #### L 100.0100 ####[facility] [address] [place], [address] Neutrophils/100 WBC (Bld) 67.2 % Normal 47-70 [facility] Comment on above: Order Comment: 109.1 Performed By: #### L 100.0100 ####[facility] [address] [place], [address] Nucleated RBC (Bld) [#/Vol] 0 10*3/uL Normal 0-5 [facility] Comment on above: Order Comment: 109.1 Performed By: #### L 100.0100 ####[facility] [address] [place], [address] Platelet mean volume (Bld) [Entitic vol] 10.3 fL Normal 6.2-12.0 [facility] Comment on above: Order Comment: 109.1 Performed By: #### L 100.0100 ####[facility] [address] [place], [address] Platelets (Bld) [#/Vol] 239 10*3/uL Normal 150-450 [facility] Comment on above: Order Comment: 109.1 Performed By: #### L 100.0100 ####[facility] [address] [place], [address] RBC (Bld) [#/Vol] 4.37 10*6/uL Low 4.6-6.2 [facility] Comment on above: Order Comment: 109.1 Performed By: #### L 100.0100 ####[facility] [address] [place], [address] RDW SD 42.5 fl Normal 35.1-43.9 [facility] Comment on above: Order Comment: 109.1 Performed By: #### L 100.0100 ####[facility] [address] [place], [address] WBC (Bld) [#/Vol] 7.4 10*3/uL Normal 4.4-11.0 [facility] Comment on above: Order Comment: 109.1 Performed By: #### L 100.0100 ####[facility] [address] [place], [address] Eosinophil percentageOrdered By: Renard Burgos on 05-27-2024 Eosinophils/100 WBC (Bld) 0.5 % 0-5 [facility] Erythrocyte distribution wid th ratioOrdered By: Renard Burgos on 05-27-2024 Erythrocyte distribution width (RBC) [Ratio] 12.8 % 11.6-14.6 [facility] Erythrocyte distribution wid th standard deviationOrdered By: Renard Burgos on 05-27-2024 Erythrocyte distribution width (RBC) [Entitic vol] 42.5 fL 35.1-43.9 [facility] Erythrocyte distribution width (RBC) [Ratio] 42.5 fl 35.1-43.9 [facility] Hematocrit Auto (Bld) [Volum e fraction]Ordered By: Renard Burgos on 05-27-2024 Hematocrit (Bld) [Volume fraction] 39.8 % Low 40-54 [facility] Hemoglobin measurementOrdere d By: Renard Burgos on 05-27-2024 Hemoglobin (Bld) [Mass/Vol] 13.2 g/dL 13.0-16.5 [facility] Immature granulocytes/100 WB C Auto (Bld)Ordered By: Renard Burgos on 05-27-2024 Immature granulocytes/100 WBC (Bld) 0.400 % 0.0-0.9 [facility] Comment on above: IG% - Immature Granu locytes (promyelocytes, myelocytes and metamyelocytes) > 1% indicates that a LEFT SHIFT is Present. Lymphocytes Auto (Unsp spec) [#/Vol]Ordered By: Renard Burgos on 05-27-2024 Lymphocytes (Bld) [#/Vol] 1.81 10*3/uL 0.83-4.51 [facility] Lymphocytes/100 WBC Auto (Un sp spec)Ordered By: Renard Burgos on 05-27-2024 Lymphocytes/100 WBC (Bld) 24.4 % 19-41 [facility] MCV (mean corpuscular volume ) determinationOrdered By: Renard Burgos on 05-27-2024 MCV (RBC) [Entitic vol] 91.1 fL 80-94 [facility] Mean corpuscular hemoglobin (MCH) determinationOrdered By: Renard Burgos on 05-27-2024 MCH (RBC) [Entitic mass] 30.2 pg 27.0-32.0 [facility] Mean corpuscular hemoglobin concentration (MCHC) determinationOrdered By: Renard Burgos on 05-27-2024 MCHC (RBC) [Mass/Vol] 33.2 g/dL 32-36 [facility] Mean platelet volume determi nationOrdered By: Renard Burgos on 05-27-2024 Platelet mean volume (Bld) [Entitic vol] 10.3 fL 6.2-12.0 [facility] Monocyte percentageOrdered B y: Renard Burgos on 05-27-2024 Monocytes/100 WBC (Bld) 7.0 % 0-10 [facility] Neutrophil percentageOrdered By: Renard Burgos on 05-27-2024 Neutrophils/100 WBC (Bld) 67.2 % 47-70 [facility] Nucleated red blood cell per centageOrdered By: Renard Burgos on 05-27-2024 Nucleated RBC/100 WBC (Bld) [Ratio] 0 % 0-5 [facility] Platelet countOrdered By: Garrick Bhatt on 05-27-2024 Platelets (Bld) [#/Vol] 239 10*3/uL 150-450 [facility] RBC Auto (Bld) [#/Vol]Ordere d By: Renard Burgos on 05-27-2024 RBC (Bld) [#/Vol] 4.37 10*6/uL Low 4.6-6.2 [facility] White blood cell (WBC) count Ordered By: Renard Burgos on 05-27-2024 WBC (Bld) [#/Vol] 7.4 10*3/uL 4.4-11.0 [facility] Absolute lymphocyte countOrd ered By: Renard Burgos on 05-20-2024 Lymphocytes Auto (Unsp spec) [#/Vol] 1.73 10*3/uL 0.83-4.51 [facility] Absolute neutrophil countOrd ered By: Renard Burgos on 05-20-2024 Neutrophils (Bld) [#/Vol] 7.0 10*3/uL 2.0-7.7 [facility] Automated blood erythrocyte countOrdered By: Renard Burgos on 05-20-2024 RBC (Bld) [#/Vol] 4.74 10*6/uL Normal 4.6-6.2 [facility] Comment on above: Order Comment: 109-1 Performed By: #### L 100.0100 ####[facility] [address] [place], [place], [address] Automated blood hematocrit ( percentage)Ordered By: Renard Burgos on 05-20-2024 Hematocrit (Bld) [Volume fraction] 43.6 % Normal 40-54 [facility] Comment on above: Order Comment: 109-1 Performed By: #### L 100.0100 ####[facility] [address] [place], [place], [address] Automated lymphocyte count a s percentage of total leukocytesOrdered By: Renard Burgos on 05-20-2024 Lymphocytes/100 WBC (Bld) 17.7 % Low 19-41 [facility] Comment on above: Order Comment: 109-1 Performed By: #### L 100.0100 ####[facility] [address] [place], [address] Lymphocytes/100 WBC Auto (Unsp spec) 17.7 % Low 19-41 [facility] Basophil percentageOrdered B y: Renard Burgos on 05-20-2024 Basophils/100 WBC (Bld) 0.5 % Normal 0-1 [facility] Comment on above: Order Comment: 109-1 Performed By: #### L 100.0100 ####[facility] [address] [place], [address] CBC W/Diff, Automatedon - Absolute Lymph 1.73 X10 3/uL Normal 0.83-4.51 [facility] Comment on above: Order Comment: 109-1 Performed By: #### L 100.0100 ####[facility] [address] [place], [address] Absolute Neut 7.0 X10 3/uL Normal 2.0-7.7 [facility] Comment on above: Order Comment: 109-1 Performed By: #### L 100.0100 ####[facility] [address] [place], [address] IG% 0.500 Normal 0.0-0.9 [facility] Comment on above: Order Comment: 109-1 Result Comment: IG% - Immature Granulocytes (promyelocytes, myelocytes andmetamyelocytes) > 1% indicates that a LEFT SHIFT is Present. Performed By: #### L 100.0100 ####[facility] [address] [place], [address] Nucleated RBC (Bld) [#/Vol] 0 10*3/uL Normal 0-5 [facility] Comment on above: Order Comment: 109-1 Performed By: #### L 100.0100 ####[facility] [address] [place], [address] RDW SD 42.5 fl Normal 35.1-43.9 [facility] Comment on above: Order Comment: 109-1 Performed By: #### L 100.0100 ####[facility] [address] [place], [address] Eosinophil percentageOrdered By: Renard Burgos on 05-20-2024 Eosinophils/100 WBC (Bld) 0.5 % Normal 0-5 [facility] Comment on above: Order Comment: 109-1 Performed By: #### L 100.0100 ####[facility] [address] [place], [address] Erythrocyte distribution wid th ratioOrdered By: Renard Burgos on 05-20-2024 Erythrocyte distribution width (RBC) [Ratio] 12.6 % Normal 11.6-14.6 [facility] Comment on above: Order Comment: 109-1 Performed By: #### L 100.0100 ####[facility] [address] [place], [address] Erythrocyte distribution wid th standard deviationOrdered By: Renard Burgos on 05-20-2024 Erythrocyte distribution width (RBC) [Entitic vol] 42.5 fL 35.1-43.9 [facility] Erythrocyte distribution width (RBC) [Ratio] 42.5 fl 35.1-43.9 [facility] Hemoglobin measurementOrdere d By: Renard Burgos on 05-20-2024 Hemoglobin (Bld) [Mass/Vol] 14.4 g/dL Normal 13.0-16.5 [facility] Comment on above: Order Comment: 109-1 Performed By: #### L 100.0100 ####[facility] [address] [place], [address] Immature granulocytes/100 WB C Auto (Bld)Ordered By: Renard Burgos on 05-20-2024 Immature granulocytes/100 WBC (Bld) 0.500 % 0.0-0.9 [facility] Comment on above: IG% - Immature Granu locytes (promyelocytes, myelocytes and metamyelocytes) > 1% indicates that a LEFT SHIFT is Present. Lymphocytes Auto (Unsp spec) [#/Vol]Ordered By: Renard Burgos on 05-20-2024 Lymphocytes (Bld) [#/Vol] 1.73 10*3/uL 0.83-4.51 [facility] MCV (mean corpuscular volume ) determinationOrdered By: Renard Burgos on 05-20-2024 MCV (RBC) [Entitic vol] 92.0 fL Normal 80-94 [facility] Comment on above: Order Comment: 109-1 Performed By: #### L 100.0100 ####[facility] [address] [facility] [phone] Mean corpuscular hemoglobin (MCH) determinationOrdered By: Renard Burgos on 05-20-2024 MCH (RBC) [Entitic mass] 30.4 pg Normal 27.0-32.0 [facility] Comment on above: Order Comment: 109-1 Performed By: #### L 100.0100 ####[facility] [address] [place], [place], [phone] Mean corpuscular hemoglobin concentration (MCHC) determinationOrdered By: Renard Burgos on 05-20-2024 MCHC (RBC) [Mass/Vol] 33.0 g/dL Normal 32-36 [facility] Comment on above: Order Comment: 109-1 Performed By: #### L 100.0100 ####[facility] [address] [place], [address] Mean platelet volume determi nationOrdered By: Renard Burgos on 05-20-2024 Platelet mean volume (Bld) [Entitic vol] 10.7 fL Normal 6.2-12.0 [facility] Comment on above: Order Comment: 109-1 Performed By: #### L 100.0100 ####[facility] [address] [place], [address] Monocyte percentageOrdered B y: Renard Burgos on 05-20-2024 Monocytes/100 WBC (Bld) 9.4 % Normal 0-10 [facility] Comment on above: Order Comment: 109-1 Performed By: #### L 100.0100 ####[facility] [address] [place], [address] Neutrophil percentageOrdered By: Renard Burgos on 05-20-2024 Neutrophils/100 WBC (Bld) 71.4 % High 47-70 [facility] Comment on above: Order Comment: 109-1 Performed By: #### L 100.0100 ####[facility] [address] [place], [address] Nucleated red blood cell per centageOrdered By: Renard Burgos on 05-20-2024 Nucleated RBC/100 WBC (Bld) [Ratio] 0 % 0-5 [facility] Platelet countOrdered By: Garrick Bhatt on 05-20-2024 Platelets (Bld) [#/Vol] 239 10*3/uL Normal 150-450 [facility] Comment on above: Order Comment: 109-1 Performed By: #### L 100.0100 ####[facility] [address] [place], [address] White blood cell (WBC) count Ordered By: Renard Burgos on 05-20-2024 WBC (Bld) [#/Vol] 9.8 10*3/uL Normal 4.4-11.0 [facility] Comment on above: Order Comment: 109-1 Performed By: #### L 100.0100 ####[facility] [address] [place], [address] Absolute lymphocyte countOrd ered By: Renard Burgos on 05-13-2024 Lymphocytes Auto (Unsp spec) [#/Vol] 2.10 10*3/uL 0.83-4.51 [facility] Absolute neutrophil countOrd ered By: Renard Burgos on 05-13-2024 Neutrophils (Bld) [#/Vol] 6.2 10*3/uL 2.0-7.7 [facility] Automated lymphocyte count a s percentage of total leukocytesOrdered By: Renard Burgos on 05-13-2024 Lymphocytes/100 WBC Auto (Unsp spec) 22.8 % 19-41 [facility] Basophil percentageOrdered B y: Renard Burgos on 05-13-2024 Basophils/100 WBC (Bld) 0.5 % 0-1 [facility] CBC W/Diff, Automatedon 05-01 Absolute Lymph 2.10 X10 3/uL Normal 0.83-4.51 [facility] [facility] Comment on above: Order Comment: 109 Performed By: #### L 100.0100 ####[facility] [address] [place], [address] Absolute Neut 6.2 X10 3/uL Normal 2.0-7.7 [facility] Comment on above: Order Comment: 109 Performed By: #### L 100.0100 ####[facility] [address] [place], [address] Basophils/100 WBC (Bld) 0.5 % Normal 0-1 [facility] Comment on above: Order Comment: 109 Performed By: #### L 100.0100 ####[facility] [address] [place], [address] Eosinophils/100 WBC (Bld) 0.5 % Normal 0-5 [facility] Comment on above: Order Comment: 109 Performed By: #### L 100.0100 ####[facility] [address] [place], [address] Erythrocyte distribution width (RBC) [Ratio] 12.9 % Normal 11.6-14.6 [facility] Comment on above: Order Comment: 109 Performed By: #### L 100.0100 ####[facility] [address] [place], [address] Hematocrit (Bld) [Volume fraction] 42.5 % Normal 40-54 [facility] Comment on above: Order Comment: 109 Performed By: #### L 100.0100 ####[facility] [address] [place], [address] Hemoglobin (Bld) [Mass/Vol] 14.2 g/dL Normal 13.0-16.5 [facility] Comment on above: Order Comment: 109 Performed By: #### L 100.0100 ####[facility] [address] [place], [address] IG% 0.300 Normal 0.0-0.9 [facility] Comment on above: Order Comment: 109 Result Comment: IG% - Immature Granulocytes (promyelocytes, myelocytes andmetamyelocytes) > 1% indicates that a LEFT SHIFT is Present. Performed By: #### L 100.0100 ####[facility] [address] [place], [address] Lymphocytes/100 WBC (Bld) 22.8 % Normal 19-41 [facility] Comment on above: Order Comment: 109 Performed By: #### L 100.0100 ####[facility] [address] [place], [address] MCH (RBC) [Entitic mass] 30.3 pg Normal 27.0-32.0 [facility] Comment on above: Order Comment: 109 Performed By: #### L 100.0100 ####[facility] [address] [place], [address] MCHC (RBC) [Mass/Vol] 33.4 g/dL Normal 32-36 [facility] Comment on above: Order Comment: 109 Performed By: #### L 100.0100 ####[facility] [address] [place], [address] MCV (RBC) [Entitic vol] 90.6 fL Normal 80-94 [facility] Comment on above: Order Comment: 109 Performed By: #### L 100.0100 ####[facility] [address] [place], [address] Monocytes/100 WBC (Bld) 8.7 % Normal 0-10 [facility] Comment on above: Order Comment: 109 Performed By: #### L 100.0100 ####[facility] [address] [place], [address] Neutrophils/100 WBC (Bld) 67.2 % Normal 47-70 [facility] Comment on above: Order Comment: 109 Performed By: #### L 100.0100 ####[facility] [address] [place], [address] Nucleated RBC (Bld) [#/Vol] 0 10*3/uL Normal 0-5 [facility] Comment on above: Order Comment: 109 Performed By: #### L 100.0100 ####[facility] [address] [place], [address] Platelet mean volume (Bld) [Entitic vol] 11.1 fL Normal 6.2-12.0 [facility] Comment on above: Order Comment: 109 Performed By: #### L 100.0100 ####[facility] [address] [place], [address] Platelets (Bld) [#/Vol] 218 10*3/uL Normal 150-450 [facility] Comment on above: Order Comment: 109 Performed By: #### L 100.0100 ####[facility] [address] [place], [address] RBC (Bld) [#/Vol] 4.69 10*6/uL Normal 4.6-6.2 [facility] Comment on above: Order Comment: 109 Performed By: #### L 100.0100 ####[facility] [address] [place], [address] RDW SD 42.3 fl Normal 35.1-43.9 [facility] Comment on above: Order Comment: 109 Performed By: #### L 100.0100 ####[facility] [address] [place], [address] WBC (Bld) [#/Vol] 9.2 10*3/uL Normal 4.4-11.0 [facility] Comment on above: Order Comment: 109 Performed By: #### L 100.0100 ####[facility] [address] [place], [address] Eosinophil percentageOrdered By: Renard Burgos on 05-13-2024 Eosinophils/100 WBC (Bld) 0.5 % 0-5 [facility] Erythrocyte distribution wid th ratioOrdered By: Renard Burgos on 05-13-2024 Erythrocyte distribution width (RBC) [Ratio] 12.9 % 11.6-14.6 [facility] Erythrocyte distribution wid th standard deviationOrdered By: Renard Burgos on 05-13-2024 Erythrocyte distribution width (RBC) [Entitic vol] 42.3 fL 35.1-43.9 [facility] Erythrocyte distribution width (RBC) [Ratio] 42.3 fl 35.1-43.9 [facility] Hematocrit Auto (Bld) [Volum e fraction]Ordered By: Renard Burgos on 05-13-2024 Hematocrit (Bld) [Volume fraction] 42.5 % 40-54 [facility] Hemoglobin measurementOrdere d By: Renard Burgos on 05-13-2024 Hemoglobin (Bld) [Mass/Vol] 14.2 g/dL 13.0-16.5 [facility] Immature granulocytes/100 WB C Auto (Bld)Ordered By: Renard Burgos on 05-13-2024 Immature granulocytes/100 WBC (Bld) 0.300 % 0.0-0.9 [facility] Comment on above: IG% - Immature Granu locytes (promyelocytes, myelocytes and metamyelocytes) > 1% indicates that a LEFT SHIFT is Present. Lymphocytes Auto (Unsp spec) [#/Vol]Ordered By: Renard Burgos on 05-13-2024 Lymphocytes (Bld) [#/Vol] 2.10 10*3/uL 0.83-4.51 [facility] Lymphocytes/100 WBC Auto (Un sp spec)Ordered By: Renard Burgos on 05-13-2024 Lymphocytes/100 WBC (Bld) 22.8 % 19-41 [facility] MCV (mean corpuscular volume ) determinationOrdered By: Renard Burgos on 05-13-2024 MCV (RBC) [Entitic vol] 90.6 fL 80-94 [facility] Mean corpuscular hemoglobin (MCH) determinationOrdered By: Renard Burgos on 05-13-2024 MCH (RBC) [Entitic mass] 30.3 pg 27.0-32.0 [facility] Mean corpuscular hemoglobin concentration (MCHC) determinationOrdered By: Renard Burgos on 05-13-2024 MCHC (RBC) [Mass/Vol] 33.4 g/dL 32-36 [facility] Mean platelet volume determi nationOrdered By: Renard Burgos on 05-13-2024 Platelet mean volume (Bld) [Entitic vol] 11.1 fL 6.2-12.0 [facility] Monocyte percentageOrdered B y: Renard Burgos on 05-13-2024 Monocytes/100 WBC (Bld) 8.7 % 0-10 [facility] Neutrophil percentageOrdered By: Renard Burgos on 05-13-2024 Neutrophils/100 WBC (Bld) 67.2 % 47-70 [facility] Nucleated red blood cell per centageOrdered By: Renard Burgos on 05-13-2024 Nucleated RBC/100 WBC (Bld) [Ratio] 0 % 0-5 [facility] Platelet countOrdered By: Garrick Bhatt on 05-13-2024 Platelets (Bld) [#/Vol] 218 10*3/uL 150-450 [facility] RBC Auto (Bld) [#/Vol]Ordere d By: Renard Burgos on 05-13-2024 RBC (Bld) [#/Vol] 4.69 10*6/uL 4.6-6.2 [facility] White blood cell (WBC) count Ordered By: Renard Burgos on 05-13-2024 WBC (Bld) [#/Vol] 9.2 10*3/uL 4.4-11.0 [facility] Absolute neutrophil countOrd ered By: Renard Burgos on 05-06-2024 Neutrophils (Bld) [#/Vol] 5.9 10*3/uL 2.0-7.7 [facility] Automated blood erythrocyte countOrdered By: Renard Burgos on 05-06-2024 RBC (Bld) [#/Vol] 4.85 10*6/uL Normal 4.6-6.2 [facility] Comment on above: Order Comment: 109-1 Performed By: #### L 100.0100 ####[facility] [address] [place], [place], [address] Automated blood hematocrit ( percentage)Ordered By: Renard Burgos on 05-06-2024 Hematocrit (Bld) [Volume fraction] 45.0 % Normal 40-54 [facility] Comment on above: Order Comment: 109-1 Performed By: #### L 100.0100 ####[facility] [address] [place], [place], [id number] Automated lymphocyte count a s percentage of total leukocytesOrdered By: Renard Burgos on 05-06-2024 Lymphocytes/100 WBC (Bld) 24.4 % Normal 19-41 [facility] Comment on above: Order Comment: 109-1 Performed By: #### L 100.0100 ####[facility] [address] [place], [place], [address] Basophil percentageOrdered B y: Renard Burgos on 05-06-2024 Basophils/100 WBC (Bld) 0.5 % Normal 0-1 [facility] Comment on above: Order Comment: 109-1 Performed By: #### L 100.0100 ####[facility] [address] [place], [place], [address] CBC W/Diff, Automatedon Absolute Lymph 2.22 X10 3/uL Normal 0.83-4.51 [facility] Comment on above: Order Comment: 109-1 Performed By: #### L 100.0100 ####[facility] [address] [place], [address] Absolute Neut 5.9 X10 3/uL Normal 2.0-7.7 [facility] Comment on above: Order Comment: 109-1 Performed By: #### L 100.0100 ####[facility] [address] [place], [address] IG% 0.500 Normal 0.0-0.9 [facility] Comment on above: Order Comment: 109-1 Result Comment: IG% - Immature Granulocytes (promyelocytes, myelocytes andmetamyelocytes) > 1% indicates that a LEFT SHIFT is Present. Performed By: #### L 100.0100 ####[facility] [address] [place], [address] Nucleated RBC (Bld) [#/Vol] 0 10*3/uL Normal 0-5 [facility] Comment on above: Order Comment: 109-1 Performed By: #### L 100.0100 ####[facility] [address] [place], [address] RDW SD 43.9 fl Normal 35.1-43.9 [facility] Comment on above: Order Comment: 109-1 Performed By: #### L 100.0100 ####[facility] [address] [place], [address] Eosinophil percentageOrdered By: Renard Burgos on 05-06-2024 Eosinophils/100 WBC (Bld) 0.4 % Normal 0-5 [facility] Comment on above: Order Comment: 109-1 Performed By: #### L 100.0100 ####[facility] [address] [place], [address] Erythrocyte distribution wid th ratioOrdered By: Renard Burgos on 05-06-2024 Erythrocyte distribution width (RBC) [Ratio] 13.0 % Normal 11.6-14.6 [facility] Comment on above: Order Comment: 109-1 Performed By: #### L 100.0100 ####[facility] [address] [place], [place], [id number] Erythrocyte distribution wid th standard deviationOrdered By: Renard Burgos on 05-06-2024 Erythrocyte distribution width (RBC) [Entitic vol] 43.9 fL 35.1-43.9 [facility] Hemoglobin measurementOrdere d By: Renard Burgos on 05-06-2024 Hemoglobin (Bld) [Mass/Vol] 14.5 g/dL Normal 13.0-16.5 [facility] Comment on above: Order Comment: 109-1 Performed By: #### L 100.0100 ####[facility] [address] [place], [address] Immature granulocytes/100 WB C Auto (Bld)Ordered By: Renard Burgos on 05-06-2024 Immature granulocytes/100 WBC (Bld) 0.500 % 0.0-0.9 [facility] Comment on above: IG% - Immature Granu locytes (promyelocytes, myelocytes and metamyelocytes) > 1% indicates that a LEFT SHIFT is Present. Lymphocytes Auto (Unsp spec) [#/Vol]Ordered By: Renard Burgos on 05-06-2024 Lymphocytes (Bld) [#/Vol] 2.22 10*3/uL 0.83-4.51 [facility] MCV (mean corpuscular volume ) determinationOrdered By: Renard Burgos on 05-06-2024 MCV (RBC) [Entitic vol] 92.8 fL Normal 80-94 [facility] Comment on above: Order Comment: 109-1 Performed By: #### L 100.0100 ####[facility] [address] [place], [address] Mean corpuscular hemoglobin (MCH) determinationOrdered By: Renard Burgos on 05-06-2024 MCH (RBC) [Entitic mass] 29.9 pg Normal 27.0-32.0 [facility] Comment on above: Order Comment: 109-1 Performed By: #### L 100.0100 ####[facility] [address] [place], [place], [address] Mean corpuscular hemoglobin concentration (MCHC) determinationOrdered By: Renard Burgos on 05-06-2024 MCHC (RBC) [Mass/Vol] 32.2 g/dL Normal 32-36 [facility] Comment on above: Order Comment: 109-1 Performed By: #### L 100.0100 ####[facility] [address] [place], [address] Mean platelet volume determi nationOrdered By: Renard Burgos on 05-06-2024 Platelet mean volume (Bld) [Entitic vol] 11.4 fL Normal 6.2-12.0 [facility] Comment on above: Order Comment: 109-1 Performed By: #### L 100.0100 ####[facility] [address] [place], [address] Monocyte percentageOrdered B y: Renard Burgos on 05-06-2024 Monocytes/100 WBC (Bld) 9.7 % Normal 0-10 [facility] Comment on above: Order Comment: 109-1 Performed By: #### L 100.0100 ####[facility] [address] [place], [address] Neutrophil percentageOrdered By: Renard Burgos on 05-06-2024 Neutrophils/100 WBC (Bld) 64.5 % Normal 47-70 [facility] Comment on above: Order Comment: 109-1 Performed By: #### L 100.0100 ####[facility] [address] [place], [address] Nucleated red blood cell per centageOrdered By: Renard Burgos on 05-06-2024 Nucleated RBC/100 WBC (Bld) [Ratio] 0 % 0-5 [facility] Platelet countOrdered By: Garrick Bhatt on 05-06-2024 Platelets (Bld) [#/Vol] 201 10*3/uL Normal 150-450 [facility] Comment on above: Order Comment: 109-1 Performed By: #### L 100.0100 ####[facility] [address] [place], [address] White blood cell (WBC) count Ordered By: Renard Burgos on 05-06-2024 WBC (Bld) [#/Vol] 9.1 10*3/uL Normal 4.4-11.0 [facility] Comment on above: Order Comment: 109-1 Performed By: #### L 100.0100 ####[facility] [address] [place], [address] 36on 05-03-2024 36 Gissel is calling to let Dr. Burgos know that the medication he prescribed he not certified, she is going to fax the information to the office. [phone] Normal [facility] Absolute neutrophil countOrd ered By: Renard Burgos on 04-29-2024 Neutrophils (Bld) [#/Vol] 6.3 10*3/uL 2.0-7.7 [facility] Basophil percentageOrdered B y: Renard Burgos on 04-29-2024 Basophils/100 WBC (Bld) 0.4 % 0-1 [facility] CBC W/Diff, Automatedon 04-02 Absolute Lymph 2.11 X10 3/uL Normal 0.83-4.51 [facility] Comment on above: Order Comment: 109.1 Performed By: #### L 100.0100 ####[facility] [address] [place], [address] Absolute Neut 6.3 X10 3/uL Normal 2.0-7.7 [facility] Comment on above: Order Comment: 109.1 Performed By: #### L 100.0100 ####[facility] [address] [place], [address] Basophils/100 WBC (Bld) 0.4 % Normal 0-1 [facility] Comment on above: Order Comment: 109.1 Performed By: #### L 100.0100 ####[facility] [address] [place], [address] Eosinophils/100 WBC (Bld) 0.4 % Normal 0-5 [facility] Comment on above: Order Comment: 109.1 Performed By: #### L 100.0100 ####[facility] [address] [place], [address] Erythrocyte distribution width (RBC) [Ratio] 12.6 % Normal 11.6-14.6 [facility] Comment on above: Order Comment: 109.1 Performed By: #### L 100.0100 ####[facility] [address] [place], [address] Hematocrit (Bld) [Volume fraction] 41.6 % Normal 40-54 [facility] Comment on above: Order Comment: 109.1 Performed By: #### L 100.0100 ####[facility] [address] [place], [address] Hemoglobin (Bld) [Mass/Vol] 13.7 g/dL Normal 13.0-16.5 [facility] Comment on above: Order Comment: 109.1 Performed By: #### L 100.0100 ####[facility] [address] [place], [address] IG% 0.400 Normal 0.0-0.9 [facility] Comment on above: Order Comment: 109.1 Result Comment: IG% - Immature Granulocytes (promyelocytes, myelocytes andmetamyelocytes) > 1% indicates that a LEFT SHIFT is Present. Performed By: #### L 100.0100 ####[facility] [address] [place], [address] Lymphocytes/100 WBC (Bld) 22.6 % Normal 19-41 [facility] Comment on above: Order Comment: 109.1 Performed By: #### L 100.0100 ####[facility] [address] [place], [address] MCH (RBC) [Entitic mass] 30.1 pg Normal 27.0-32.0 [facility] Comment on above: Order Comment: 109.1 Performed By: #### L 100.0100 ####[facility] [address] [place], [address] MCHC (RBC) [Mass/Vol] 32.9 g/dL Normal 32-36 [facility] Comment on above: Order Comment: 109.1 Performed By: #### L 100.0100 ####[facility] [address] [place], [address] MCV (RBC) [Entitic vol] 91.4 fL Normal 80-94 [facility] Comment on above: Order Comment: 109.1 Performed By: #### L 100.0100 ####[facility] [address] [place], [address] Monocytes/100 WBC (Bld) 9.3 % Normal 0-10 [facility] Comment on above: Order Comment: 109.1 Performed By: #### L 100.0100 ####[facility] [address] [place], [address] Neutrophils/100 WBC (Bld) 66.9 % Normal 47-70 [facility] Comment on above: Order Comment: 109.1 Performed By: #### L 100.0100 ####[facility] [address] [place], [address] Nucleated RBC (Bld) [#/Vol] 0 10*3/uL Normal 0-5 [facility] Comment on above: Order Comment: 109.1 Performed By: #### L 100.0100 ####[facility] [address] [place], [address] Platelet mean volume (Bld) [Entitic vol] 11.0 fL Normal 6.2-12.0 [facility] Comment on above: Order Comment: 109.1 Performed By: #### L 100.0100 ####[facility] [address] [place], [address] Platelets (Bld) [#/Vol] 211 10*3/uL Normal 150-450 [facility] Comment on above: Order Comment: 109.1 Performed By: #### L 100.0100 ####[facility] [address] [place], [address] RBC (Bld) [#/Vol] 4.55 10*6/uL Low 4.6-6.2 [facility] Comment on above: Order Comment: 109.1 Performed By: #### L 100.0100 ####[facility] [address] [place], [address] RDW SD 41.5 fl Normal 35.1-43.9 [facility] Comment on above: Order Comment: 109.1 Performed By: #### L 100.0100 ####[facility] [address] [place], [address] WBC (Bld) [#/Vol] 9.4 10*3/uL Normal 4.4-11.0 [facility] Comment on above: Order Comment: 109.1 Performed By: #### L 100.0100 ####[facility] [address] [place], [address] Eosinophil percentageOrdered By: Renard Burgos on 04-29-2024 Eosinophils/100 WBC (Bld) 0.4 % 0-5 [facility] Erythrocyte distribution wid th ratioOrdered By: Renard Burgos on 04-29-2024 Erythrocyte distribution width (RBC) [Ratio] 12.6 % 11.6-14.6 [facility] Erythrocyte distribution wid th standard deviationOrdered By: Renard Burgos on 04-29-2024 Erythrocyte distribution width (RBC) [Entitic vol] 41.5 fL 35.1-43.9 [facility] Hematocrit Auto (Bld) [Volum e fraction]Ordered By: Renard Burgos on 04-29-2024 Hematocrit (Bld) [Volume fraction] 41.6 % 40-54 [facility] Hemoglobin measurementOrdere d By: Renard Burgos on 04-29-2024 Hemoglobin (Bld) [Mass/Vol] 13.7 g/dL 13.0-16.5 [facility] Immature granulocytes/100 WB C Auto (Bld)Ordered By: Renard Burgos on 04-29-2024 Immature granulocytes/100 WBC (Bld) 0.400 % 0.0-0.9 [facility] Comment on above: IG% - Immature Granu locytes (promyelocytes, myelocytes and metamyelocytes) > 1% indicates that a LEFT SHIFT is Present. Lymphocytes Auto (Unsp spec) [#/Vol]Ordered By: Renard Burgos on 04-29-2024 Lymphocytes (Bld) [#/Vol] 2.11 10*3/uL 0.83-4.51 [facility] Lymphocytes/100 WBC Auto (Un sp spec)Ordered By: Renard Burgos on 04-29-2024 Lymphocytes/100 WBC (Bld) 22.6 % 19-41 [facility] MCV (mean corpuscular volume ) determinationOrdered By: Renard Burgos on 04-29-2024 MCV (RBC) [Entitic vol] 91.4 fL 80-94 [facility] Mean corpuscular hemoglobin (MCH) determinationOrdered By: Renard Burgos on 04-29-2024 MCH (RBC) [Entitic mass] 30.1 pg 27.0-32.0 [facility] Mean corpuscular hemoglobin concentration (MCHC) determinationOrdered By: Renard Burgos on 04-29-2024 MCHC (RBC) [Mass/Vol] 32.9 g/dL 32-36 [facility] Mean platelet volume determi nationOrdered By: Renard Burgos on 04-29-2024 Platelet mean volume (Bld) [Entitic vol] 11.0 fL 6.2-12.0 [facility] Monocyte percentageOrdered B y: Renard Burgos on 04-29-2024 Monocytes/100 WBC (Bld) 9.3 % 0-10 [facility] Neutrophil percentageOrdered By: Renard Burgos on 04-29-2024 Neutrophils/100 WBC (Bld) 66.9 % 47-70 [facility] Nucleated red blood cell per centageOrdered By: Renard Burgos on 04-29-2024 Nucleated RBC/100 WBC (Bld) [Ratio] 0 % 0-5 [facility] Platelet countOrdered By: Garrick Bhatt on 04-29-2024 Platelets (Bld) [#/Vol] 211 10*3/uL 150-450 [facility] RBC Auto (Bld) [#/Vol]Ordere d By: Renard Burgos on 04-29-2024 RBC (Bld) [#/Vol] 4.55 10*6/uL Low 4.6-6.2 [facility] White blood cell (WBC) count Ordered By: Renard Burgos on 04-29-2024 WBC (Bld) [#/Vol] 9.4 10*3/uL 4.4-11.0 [facility] Absolute neutrophil countOrd ered By: Renard Burgos on 04-22-2024 Neutrophils (Bld) [#/Vol] 8.1 10*3/uL High 2.0-7.7 [facility] Basophil percentageOrdered B y: Renard Burgos on 04-22-2024 Basophils/100 WBC (Bld) 0.5 % 0-1 [facility] CBC W/Diff, Automatedon - Absolute Lymph 2.61 X10 3/uL Normal 0.83-4.51 [facility] Comment on above: Order Comment: 109-1 Performed By: #### L 100.0100 ####[facility] [address] [place], [place], [id number] Absolute Neut 8.1 X10 3/uL High 2.0-7.7 [facility] Comment on above: Order Comment: 109-1 Performed By: #### L 100.0100 ####[facility] [address] [place], [address] Basophils/100 WBC (Bld) 0.5 % Normal 0-1 [facility] Comment on above: Order Comment: 109-1 Performed By: #### L 100.0100 ####[facility] [address] [place], [address] Eosinophils/100 WBC (Bld) 0.4 % Normal 0-5 [facility] Comment on above: Order Comment: 109-1 Performed By: #### L 100.0100 ####[facility] [address] [place], [place], [address] Erythrocyte distribution width (RBC) [Ratio] 12.6 % Normal 11.6-14.6 [facility] Comment on above: Order Comment: 109-1 Performed By: #### L 100.0100 ####[facility] [address] [place], [address] Hematocrit (Bld) [Volume fraction] 44.5 % Normal 40-54 [facility] Comment on above: Order Comment: 109-1 Performed By: #### L 100.0100 ####[facility] [address] [place], [address] Hemoglobin (Bld) [Mass/Vol] 14.3 g/dL Normal 13.0-16.5 [facility] Comment on above: Order Comment: 109-1 Performed By: #### L 100.0100 ####[facility] [address] [place], [address] IG% 0.300 Normal 0.0-0.9 [facility] Comment on above: Order Comment: 109-1 Result Comment: IG% - Immature Granulocytes (promyelocytes, myelocytes andmetamyelocytes) > 1% indicates that a LEFT SHIFT is Present. Performed By: #### L 100.0100 ####[facility] [address] [place], [address] Lymphocytes/100 WBC (Bld) 22.0 % Normal 19-41 [facility] Comment on above: Order Comment: 109-1 Performed By: #### L 100.0100 ####[facility] [address] [place], [address] MCH (RBC) [Entitic mass] 29.7 pg Normal 27.0-32.0 [facility] Comment on above: Order Comment: 109-1 Performed By: #### L 100.0100 ####[facility] [address] [place], [address] MCHC (RBC) [Mass/Vol] 32.1 g/dL Normal 32-36 [facility] Comment on above: Order Comment: 109-1 Performed By: #### L 100.0100 ####[facility] [address] [place], [address] MCV (RBC) [Entitic vol] 92.5 fL Normal 80-94 [facility] Comment on above: Order Comment: 109-1 Performed By: #### L 100.0100 ####[facility] [address] [place], [address] Monocytes/100 WBC (Bld) 8.3 % Normal 0-10 [facility] Comment on above: Order Comment: 109-1 Performed By: #### L 100.0100 ####[facility] [address] [place], [address] Neutrophils/100 WBC (Bld) 68.5 % Normal 47-70 [facility] Comment on above: Order Comment: 109-1 Performed By: #### L 100.0100 ####[facility] [address] [place], [address] Nucleated RBC (Bld) [#/Vol] 0 10*3/uL Normal 0-5 [facility] Comment on above: Order Comment: 109-1 Performed By: #### L 100.0100 ####[facility] [address] [place], [address] Platelet mean volume (Bld) [Entitic vol] 11.0 fL Normal 6.2-12.0 [facility] Comment on above: Order Comment: 109-1 Performed By: #### L 100.0100 ####[facility] [address] [place], [address] Platelets (Bld) [#/Vol] 190 10*3/uL Normal 150-450 [facility] Comment on above: Order Comment: 109-1 Performed By: #### L 100.0100 ####[facility] [address] [place], [address] RBC (Bld) [#/Vol] 4.81 10*6/uL Normal 4.6-6.2 [facility] Comment on above: Order Comment: 109-1 Performed By: #### L 100.0100 ####[facility] [address] [place], [address] RDW SD 43.0 fl Normal 35.1-43.9 [facility] Comment on above: Order Comment: 109-1 Performed By: #### L 100.0100 ####[facility] [address] [place], [address] WBC (Bld) [#/Vol] 11.9 10*3/uL High 4.4-11.0 [facility] Comment on above: Order Comment: 109-1 Performed By: #### L 100.0100 ####[facility] [address] [place], [address] Eosinophil percentageOrdered By: Renard Burgos on 04-22-2024 Eosinophils/100 WBC (Bld) 0.4 % 0-5 [facility] Erythrocyte distribution wid th ratioOrdered By: Renard Burgos on 04-22-2024 Erythrocyte distribution width (RBC) [Ratio] 12.6 % 11.6-14.6 [facility] Erythrocyte distribution wid th standard deviationOrdered By: Renard Burgos on 04-22-2024 Erythrocyte distribution width (RBC) [Entitic vol] 43.0 fL 35.1-43.9 [facility] Hematocrit Auto (Bld) [Volum e fraction]Ordered By: Renard Burgos on 04-22-2024 Hematocrit (Bld) [Volume fraction] 44.5 % 40-54 [facility] Hemoglobin measurementOrdere d By: Renard Burgos on 04-22-2024 Hemoglobin (Bld) [Mass/Vol] 14.3 g/dL 13.0-16.5 [facility] Immature granulocytes/100 WB C Auto (Bld)Ordered By: Renard Burgos on 04-22-2024 Immature granulocytes/100 WBC (Bld) 0.300 % 0.0-0.9 [facility] Comment on above: IG% - Immature Granu locytes (promyelocytes, myelocytes and metamyelocytes) > 1% indicates that a LEFT SHIFT is Present. Lymphocytes Auto (Unsp spec) [#/Vol]Ordered By: Renard Burgos on 04-22-2024 Lymphocytes (Bld) [#/Vol] 2.61 10*3/uL 0.83-4.51 [facility] Lymphocytes/100 WBC Auto (Un sp spec)Ordered By: Renard Burgos on 04-22-2024 Lymphocytes/100 WBC (Bld) 22.0 % 19-41 [facility] MCV (mean corpuscular volume ) determinationOrdered By: Renard Burgos on 04-22-2024 MCV (RBC) [Entitic vol] 92.5 fL 80-94 [facility] Mean corpuscular hemoglobin (MCH) determinationOrdered By: Renard Burgos on 04-22-2024 MCH (RBC) [Entitic mass] 29.7 pg 27.0-32.0 [facility] Mean corpuscular hemoglobin concentration (MCHC) determinationOrdered By: Renard Burgos on 04-22-2024 MCHC (RBC) [Mass/Vol] 32.1 g/dL 32-36 [facility] Mean platelet volume determi nationOrdered By: Renard Burgos on 04-22-2024 Platelet mean volume (Bld) [Entitic vol] 11.0 fL 6.2-12.0 [facility] Monocyte percentageOrdered B y: Renard Burgos on 04-22-2024 Monocytes/100 WBC (Bld) 8.3 % 0-10 [facility] Neutrophil percentageOrdered By: Renard Burgos on 04-22-2024 Neutrophils/100 WBC (Bld) 68.5 % 47-70 [facility] Nucleated red blood cell per centageOrdered By: Renard Burgos on 04-22-2024 Nucleated RBC/100 WBC (Bld) [Ratio] 0 % 0-5 [facility] Platelet countOrdered By: Garrick Bhatt on 04-22-2024 Platelets (Bld) [#/Vol] 190 10*3/uL 150-450 [facility] RBC Auto (Bld) [#/Vol]Ordere d By: Renard Burgos on 04-22-2024 RBC (Bld) [#/Vol] 4.81 10*6/uL 4.6-6.2 [facility] White blood cell (WBC) count Ordered By: Renard Burgos on 04-22-2024 WBC (Bld) [#/Vol] 11.9 10*3/uL High 4.4-11.0 [facility] Absolute neutrophil countOrd ered By: Renard Burgos on 04-15-2024 Neutrophils (Bld) [#/Vol] 8.7 10*3/uL High 2.0-7.7 [facility] Basophil percentageOrdered B y: Renard Burgos on 04-15-2024 Basophils/100 WBC (Bld) 0.3 % 0-1 [facility] Bilirubin, totalOrdered By: Renard Burgos on 04-15-2024 Bilirubin [Mass/Vol] 0.30 mg/dL 0.20-1.00 [facility] Comment on above: For patients on eltr ombopag therapy, use of Dimension [place] TBIL is not recommended. Bilirubin.direct [Mass/Vol]O rdered By: Renard Burgos on 04-15-2024 Direct Bilirubin < 0.05 mg/dL 0.00-0.30 [facility] CBC W/Diff, Automatedon 03-31 Absolute Lymph 1.93 X10 3/uL Normal 0.83-4.51 [facility] Comment on above: Order Comment: 109-1 Performed By: #### L 100.0100, L500.3400 ####[facility] [address] [place], [address] Absolute Neut 8.7 X10 3/uL High 2.0-7.7 [facility] Comment on above: Order Comment: 109-1 Performed By: #### L 100.0100, L500.3400 ####[facility] [address] [place], [address] Basophils/100 WBC (Bld) 0.3 % Normal 0-1 [facility] Comment on above: Order Comment: 109-1 Performed By: #### L 100.0100, L500.3400 ####[facility] [address] [place], [address] Eosinophils/100 WBC (Bld) 0.4 % Normal 0-5 [facility] Comment on above: Order Comment: 109-1 Performed By: #### L 100.0100, L500.3400 ####[facility] [address] [place], [address] Erythrocyte distribution width (RBC) [Ratio] 12.8 % Normal 11.6-14.6 [facility] Comment on above: Order Comment: 109-1 Performed By: #### L 100.0100, L500.3400 ####[facility] [address] [place], [address] Hematocrit (Bld) [Volume fraction] 42.5 % Normal 40-54 [facility] Comment on above: Order Comment: 109-1 Performed By: #### L 100.0100, L500.3400 ####[facility] [address] [place], [address] Hemoglobin (Bld) [Mass/Vol] 13.7 g/dL Normal 13.0-16.5 [facility] Comment on above: Order Comment: 109-1 Performed By: #### L 100.0100, L500.3400 ####[facility] [address] [place], [address] IG% 0.400 Normal 0.0-0.9 [facility] Comment on above: Order Comment: 109-1 Result Comment: IG% - Immature Granulocytes (promyelocytes, myelocytes andmetamyelocytes) > 1% indicates that a LEFT SHIFT is Present. Performed By: #### L 100.0100, L500.3400 ####[facility] [address] [place], [address] Lymphocytes/100 WBC (Bld) 16.9 % Low 19-41 [facility] Comment on above: Order Comment: 109-1 Performed By: #### L 100.0100, L500.3400 ####[facility] [address] [place], [address] MCH (RBC) [Entitic mass] 29.5 pg Normal 27.0-32.0 [facility] Comment on above: Order Comment: 109-1 Performed By: #### L 100.0100, L500.3400 ####[facility] [address] [place], [address] MCHC (RBC) [Mass/Vol] 32.2 g/dL Normal 32-36 [facility] Comment on above: Order Comment: 109-1 Performed By: #### L 100.0100, L500.3400 ####[facility] [address] [place], [address] MCV (RBC) [Entitic vol] 91.6 fL Normal 80-94 [facility] Comment on above: Order Comment: 109-1 Performed By: #### L 100.0100, L500.3400 ####[facility] [address] [place], [address] Monocytes/100 WBC (Bld) 6.0 % Normal 0-10 [facility] Comment on above: Order Comment: 109-1 Performed By: #### L 100.0100, L500.3400 ####[facility] [address] [place], [address] Neutrophils/100 WBC (Bld) 76.0 % High 47-70 [facility] Comment on above: Order Comment: 109-1 Performed By: #### L 100.0100, L500.3400 ####[facility] [address] [place], [address] Nucleated RBC (Bld) [#/Vol] 0 10*3/uL Normal 0-5 [facility] Comment on above: Order Comment: 109-1 Performed By: #### L 100.0100, L500.3400 ####[facility] [address] [place], [address] Platelet mean volume (Bld) [Entitic vol] 11.1 fL Normal 6.2-12.0 [facility] Comment on above: Order Comment: 109-1 Performed By: #### L 100.0100, L500.3400 ####[facility] [address] [place], [address] Platelets (Bld) [#/Vol] 197 10*3/uL Normal 150-450 [facility] Comment on above: Order Comment: 109-1 Performed By: #### L 100.0100, L500.3400 ####[facility] [address] [place], [address] RBC (Bld) [#/Vol] 4.64 10*6/uL Normal 4.6-6.2 [facility] Comment on above: Order Comment: 109-1 Performed By: #### L 100.0100, L500.3400 ####[facility] [address] [place], [address] RDW SD 42.5 fl Normal 35.1-43.9 [facility] Comment on above: Order Comment: 109-1 Performed By: #### L 100.0100, L500.3400 ####[facility] [address] [place], [address] WBC (Bld) [#/Vol] 11.4 10*3/uL High 4.4-11.0 [facility] Comment on above: Order Comment: 109-1 Performed By: #### L 100.0100, L500.3400 ####[facility] [address] [place], [address] Eosinophil percentageOrdered By: Renard Burgos on 04-15-2024 Eosinophils/100 WBC (Bld) 0.4 % 0-5 [facility] Erythrocyte distribution wid th ratioOrdered By: Renard Burgos on 04-15-2024 Erythrocyte distribution width (RBC) [Ratio] 12.8 % 11.6-14.6 [facility] Erythrocyte distribution wid th standard deviationOrdered By: Renard Burgos on 04-15-2024 Erythrocyte distribution width (RBC) [Entitic vol] 42.5 fL 35.1-43.9 [facility] Hematocrit Auto (Bld) [Volum e fraction]Ordered By: Renard Burgos on 04-15-2024 Hematocrit (Bld) [Volume fraction] 42.5 % 40-54 [facility] Hemoglobin measurementOrdere d By: Renard Burgos on 04-15-2024 Hemoglobin (Bld) [Mass/Vol] 13.7 g/dL 13.0-16.5 [facility] Immature granulocytes/100 WB C Auto (Bld)Ordered By: Renard Burgos on 04-15-2024 Immature granulocytes/100 WBC (Bld) 0.400 % 0.0-0.9 [facility] Comment on above: IG% - Immature Granu locytes (promyelocytes, myelocytes and metamyelocytes) > 1% indicates that a LEFT SHIFT is Present. Laboratory - Chemistry and C hemistry - challengeOrdered By: Renard Burgos on 12-16-2024 AST [Catalytic activity/Vol] 18 U/L 15-37 [facility] Comment on above: Slight Hemolysis, Re sult may be falsely increased. Liver Profileon 04-15-2024 Albumin [Mass/Vol] 2.9 g/dL Low 3.2-5.0 [facility] Comment on above: Order Comment: 109-1 Performed By: #### L 100.0100, L500.3400 ####[facility] [address] [place], [address] ALK P 126 U/L High 45-117 [facility] Comment on above: Order Comment: 109-1 Performed By: #### L 100.0100, L500.3400 ####[facility] [address] [place], [address] ALT [Catalytic activity/Vol] 21 U/L Normal 16-61 [facility] Comment on above: Order Comment: 109-1 Performed By: #### L 100.0100, L500.3400 ####[facility] [address] [place], [address] AST [Catalytic activity/Vol] 18 U/L Normal 15-37 [facility] Comment on above: Order Comment: 109-1 Result Comment: Slig ht Hemolysis, Result may be falsely increased. Performed By: #### L 100.0100, L500.3400 ####[facility] [address] [place], [address] Bilirubin [Mass/Vol] 0.30 mg/dL Normal 0.20-1.00 [facility] Comment on above: Order Comment: 109-1 Result Comment: For patients on eltrombopag therapy, use of Dimension [place] TBIL is not recommended. Performed By: #### L 100.0100, L500.3400 ####[facility] [address] [place], [address] D BILI < 0.05 Normal 0.00-0.30 [facility] Comment on above: Order Comment: 109-1 Performed By: #### L 100.0100, L500.3400 ####[facility] [address] [place], [address] Globulin (S) [Mass/Vol] 3.0 g/dL Normal 2.2-4.2 [facility] Comment on above: Order Comment: 109-1 Performed By: #### L 100.0100, L500.3400 ####[facility] [address] [place], [address] T PROT 5.9 g/dL Low 6.4-8.2 [facility] Comment on above: Order Comment: 109-1 Performed By: #### L 100.0100, L500.3400 ####[facility] [address] [place], [address] Lymphocytes Auto (Unsp spec) [#/Vol]Ordered By: Renard Burgos on 04-15-2024 Lymphocytes (Bld) [#/Vol] 1.93 10*3/uL 0.83-4.51 [facility] Lymphocytes/100 WBC Auto (Un sp spec)Ordered By: Renard Burgos on 04-15-2024 Lymphocytes/100 WBC (Bld) 16.9 % Low 19-41 [facility] MCV (mean corpuscular volume ) determinationOrdered By: Renard Burgos on 04-15-2024 MCV (RBC) [Entitic vol] 91.6 fL 80-94 [facility] Mean corpuscular hemoglobin (MCH) determinationOrdered By: Renard Burgos on 04-15-2024 MCH (RBC) [Entitic mass] 29.5 pg 27.0-32.0 [facility] Mean corpuscular hemoglobin concentration (MCHC) determinationOrdered By: Renard Burgos on 04-15-2024 MCHC (RBC) [Mass/Vol] 32.2 g/dL 32-36 [facility] Mean platelet volume determi nationOrdered By: Renard Burgos on 04-15-2024 Platelet mean volume (Bld) [Entitic vol] 11.1 fL 6.2-12.0 [facility] Monocyte percentageOrdered B y: Renard Burgos on 04-15-2024 Monocytes/100 WBC (Bld) 6.0 % 0-10 [facility] Neutrophil percentageOrdered By: Renard Burgos on 04-15-2024 Neutrophils/100 WBC (Bld) 76.0 % High 47-70 [facility] Nucleated red blood cell per centageOrdered By: Renard Burgos on 04-15-2024 Nucleated RBC/100 WBC (Bld) [Ratio] 0 % 0-5 [facility] Platelet countOrdered By: Garrick Bhatt on 04-15-2024 Platelets (Bld) [#/Vol] 197 10*3/uL 150-450 [facility] RBC Auto (Bld) [#/Vol]Ordere d By: Renard Burgos on 04-15-2024 RBC (Bld) [#/Vol] 4.64 10*6/uL 4.6-6.2 [facility] Serum globulin measurementOr dered By: Renard Burgos on 04-15-2024 Globulin (S) [Mass/Vol] 3.0 g/dL 2.2-4.2 [facility] Serum or plasma alanine kay otransferase (ALT) measurementOrdered By: Renard Burgos on 04-15-2024 ALT [Catalytic activity/Vol] 21 U/L 16-61 [facility] Serum or plasma albumin gordy urement (mass/volume)Ordered By: Renard Burgos on 04-15-2024 Albumin [Mass/Vol] 2.9 g/dL Low 3.2-5.0 [facility] Serum or plasma alkaline trace sphatase measurementOrdered By: Renard Burgos on 04-15-2024 ALP [Catalytic activity/Vol] 126 U/L High 45-117 [facility] Total proteinOrdered By: Lyubov Burgos on 04-15-2024 Protein [Mass/Vol] 5.9 g/dL Low 6.4-8.2 [facility] White blood cell (WBC) count Ordered By: Renard Burgos on 04-15-2024 WBC (Bld) [#/Vol] 11.4 10*3/uL High 4.4-11.0 [facility] Absolute neutrophil countOrd ered By: Renard Burgos on 04-08-2024 Neutrophils (Bld) [#/Vol] 5.7 10*3/uL 2.0-7.7 [facility] Basophil percentageOrdered B y: Renard Burgos on 04-08-2024 Basophils/100 WBC (Bld) 0.6 % 0-1 [facility] CBC W/Diff, Automatedon 12 Absolute Lymph 2.27 X10 3/uL Normal 0.83-4.51 [facility] Comment on above: Order Comment: 109.1 Performed By: #### L 100.0100 ####[facility] [address] [place], [address] Absolute Neut 5.7 X10 3/uL Normal 2.0-7.7 [facility] Comment on above: Order Comment: 109.1 Performed By: #### L 100.0100 ####[facility] [address] [place], [address] Basophils/100 WBC (Bld) 0.6 % Normal 0-1 [facility] Comment on above: Order Comment: 109.1 Performed By: #### L 100.0100 ####[facility] [address] [place], [address] Eosinophils/100 WBC (Bld) 0.5 % Normal 0-5 [facility] Comment on above: Order Comment: 109.1 Performed By: #### L 100.0100 ####[facility] [address] [place], [address] Erythrocyte distribution width (RBC) [Ratio] 12.6 % Normal 11.6-14.6 [facility] Comment on above: Order Comment: 109.1 Performed By: #### L 100.0100 ####[facility] [address] [place], [address] Hematocrit (Bld) [Volume fraction] 41.2 % Normal 40-54 [facility] Comment on above: Order Comment: 109.1 Performed By: #### L 100.0100 ####[facility] [address] [place], [address] Hemoglobin (Bld) [Mass/Vol] 13.3 g/dL Normal 13.0-16.5 [facility] Comment on above: Order Comment: 109.1 Performed By: #### L 100.0100 ####[facility] [address] [place], [address] IG% 0.200 Normal 0.0-0.9 [facility] Comment on above: Order Comment: 109.1 Result Comment: IG% - Immature Granulocytes (promyelocytes, myelocytes andmetamyelocytes) > 1% indicates that a LEFT SHIFT is Present. Performed By: #### L 100.0100 ####[facility] [address] [place], [address] Lymphocytes/100 WBC (Bld) 26.0 % Normal 19-41 [facility] Comment on above: Order Comment: 109.1 Performed By: #### L 100.0100 ####[facility] [address] [place], [address] MCH (RBC) [Entitic mass] 29.6 pg Normal 27.0-32.0 [facility] Comment on above: Order Comment: 109.1 Performed By: #### L 100.0100 ####[facility] [address] [place], [address] MCHC (RBC) [Mass/Vol] 32.3 g/dL Normal 32-36 [facility] Comment on above: Order Comment: 109.1 Performed By: #### L 100.0100 ####[facility] [address] [place], [address] MCV (RBC) [Entitic vol] 91.8 fL Normal 80-94 [facility] Comment on above: Order Comment: 109.1 Performed By: #### L 100.0100 ####[facility] [address] [place], [address] Monocytes/100 WBC (Bld) 7.8 % Normal 0-10 [facility] Comment on above: Order Comment: 109.1 Performed By: #### L 100.0100 ####[facility] [address] [place], [address] Neutrophils/100 WBC (Bld) 64.9 % Normal 47-70 [facility] Comment on above: Order Comment: 109.1 Performed By: #### L 100.0100 ####[facility] [address] [place], [address] Nucleated RBC (Bld) [#/Vol] 0 10*3/uL Normal 0-5 [facility] Comment on above: Order Comment: 109.1 Performed By: #### L 100.0100 ####[facility] [address] [place], [address] Platelet mean volume (Bld) [Entitic vol] 10.8 fL Normal 6.2-12.0 [facility] Comment on above: Order Comment: 109.1 Performed By: #### L 100.0100 ####[facility] [address] [place], [address] Platelets (Bld) [#/Vol] 208 10*3/uL Normal 150-450 [facility] Comment on above: Order Comment: 109.1 Performed By: #### L 100.0100 ####[facility] [address] [place], [address] RBC (Bld) [#/Vol] 4.49 10*6/uL Low 4.6-6.2 [facility] Comment on above: Order Comment: 109.1 Performed By: #### L 100.0100 ####[facility] [address] [place], [address] RDW SD 42.4 fl Normal 35.1-43.9 [facility] Comment on above: Order Comment: 109.1 Performed By: #### L 100.0100 ####[facility] [address] [place], [address] WBC (Bld) [#/Vol] 8.7 10*3/uL Normal 4.4-11.0 [facility] Comment on above: Order Comment: 109.1 Performed By: #### L 100.0100 ####[facility] [address] [place], [address] Eosinophil percentageOrdered By: Renard Burgos on 04-08-2024 Eosinophils/100 WBC (Bld) 0.5 % 0-5 [facility] Erythrocyte distribution wid th ratioOrdered By: Renard Burgos on 04-08-2024 Erythrocyte distribution width (RBC) [Ratio] 12.6 % 11.6-14.6 [facility] Erythrocyte distribution wid th standard deviationOrdered By: Renard Burgos on 04-08-2024 Erythrocyte distribution width (RBC) [Entitic vol] 42.4 fL 35.1-43.9 [facility] [facility] Hematocrit Auto (Bld) [Volum e fraction]Ordered By: Renard Burgos on 04-08-2024 Hematocrit (Bld) [Volume fraction] 41.2 % 40-54 [facility] Hemoglobin measurementOrdere d By: Renard Burgos on 04-08-2024 Hemoglobin (Bld) [Mass/Vol] 13.3 g/dL 13.0-16.5 [facility] Immature granulocytes/100 WB C Auto (Bld)Ordered By: Renard Burgos on 04-08-2024 Immature granulocytes/100 WBC (Bld) 0.200 % 0.0-0.9 [facility] Comment on above: IG% - Immature Granu locytes (promyelocytes, myelocytes and metamyelocytes) > 1% indicates that a LEFT SHIFT is Present. Lymphocytes Auto (Unsp spec) [#/Vol]Ordered By: Renard Burgos on 04-08-2024 Lymphocytes (Bld) [#/Vol] 2.27 10*3/uL 0.83-4.51 [facility] Lymphocytes/100 WBC Auto (Un sp spec)Ordered By: Renard Burgos on 04-08-2024 Lymphocytes/100 WBC (Bld) 26.0 % 19-41 [facility] MCV (mean corpuscular volume ) determinationOrdered By: Renard Burgos on 04-08-2024 MCV (RBC) [Entitic vol] 91.8 fL 80-94 [facility] Mean corpuscular hemoglobin (MCH) determinationOrdered By: Renard Burgos on 04-08-2024 MCH (RBC) [Entitic mass] 29.6 pg 27.0-32.0 [facility] Mean corpuscular hemoglobin concentration (MCHC) determinationOrdered By: Renard Burgos on 04-08-2024 MCHC (RBC) [Mass/Vol] 32.3 g/dL 32-36 [facility] Mean platelet volume determi nationOrdered By: Renard Burgos on 04-08-2024 Platelet mean volume (Bld) [Entitic vol] 10.8 fL 6.2-12.0 [facility] Monocyte percentageOrdered B y: Renard Burgos on 04-08-2024 Monocytes/100 WBC (Bld) 7.8 % 0-10 [facility] Neutrophil percentageOrdered By: Renard Burgos on 04-08-2024 Neutrophils/100 WBC (Bld) 64.9 % 47-70 [facility] Nucleated red blood cell per centageOrdered By: Renard Burgos on 04-08-2024 Nucleated RBC/100 WBC (Bld) [Ratio] 0 % 0-5 [facility] Platelet countOrdered By: Garrick Bhatt on 04-08-2024 Platelets (Bld) [#/Vol] 208 10*3/uL 150-450 [facility] RBC Auto (Bld) [#/Vol]Ordere d By: Renard Burgos on 04-08-2024 RBC (Bld) [#/Vol] 4.49 10*6/uL Low 4.6-6.2 [facility] White blood cell (WBC) count Ordered By: Renard Burgos on 04-08-2024 WBC (Bld) [#/Vol] 8.7 10*3/uL 4.4-11.0 [facility] Absolute neutrophil countOrd ered By: Renard Burgos on 04-01-2024 Neutrophils (Bld) [#/Vol] 7.1 10*3/uL 2.0-7.7 [facility] Basophil percentageOrdered B y: Renard Burgos on 04-01-2024 Basophils/100 WBC (Bld) 0.4 % 0-1 [facility] CBC W/Diff, Automatedon 12--2023 Absolute Lymph 1.97 X10 3/uL Normal 0.83-4.51 [facility] Comment on above: Order Comment: 109-1 Performed By: #### L 100.0100 ####[facility] [address] [place], [address] Absolute Neut 7.1 X10 3/uL Normal 2.0-7.7 [facility] Comment on above: Order Comment: 109-1 Performed By: #### L 100.0100 ####[facility] [address] [place], [address] Basophils/100 WBC (Bld) 0.4 % Normal 0-1 [facility] Comment on above: Order Comment: 109-1 Performed By: #### L 100.0100 ####[facility] [address] [place], [address] Eosinophils/100 WBC (Bld) 0.4 % Normal 0-5 [facility] Comment on above: Order Comment: 109-1 Performed By: #### L 100.0100 ####[facility] [address] [place], [address] Erythrocyte distribution width (RBC) [Ratio] 12.6 % Normal 11.6-14.6 [facility] Comment on above: Order Comment: 109-1 Performed By: #### L 100.0100 ####[facility] [address] [place], [address] Hematocrit (Bld) [Volume fraction] 41.7 % Normal 40-54 [facility] Comment on above: Order Comment: 109-1 Performed By: #### L 100.0100 ####[facility] [address] [place], [address] Hemoglobin (Bld) [Mass/Vol] 13.6 g/dL Normal 13.0-16.5 [facility] Comment on above: Order Comment: 109-1 Performed By: #### L 100.0100 ####[facility] [address] [place], [address] IG% 0.300 Normal 0.0-0.9 [facility] Comment on above: Order Comment: 109-1 Result Comment: IG% - Immature Granulocytes (promyelocytes, myelocytes andmetamyelocytes) > 1% indicates that a LEFT SHIFT is Present. Performed By: #### L 100.0100 ####[facility] [address] [place], [address] Lymphocytes/100 WBC (Bld) 20.0 % Normal 19-41 [facility] Comment on above: Order Comment: 109-1 Performed By: #### L 100.0100 ####[facility] [address] [place], [address] MCH (RBC) [Entitic mass] 29.7 pg Normal 27.0-32.0 [facility] Comment on above: Order Comment: 109-1 Performed By: #### L 100.0100 ####[facility] [address] [place], [address] MCHC (RBC) [Mass/Vol] 32.6 g/dL Normal 32-36 [facility] Comment on above: Order Comment: 109-1 Performed By: #### L 100.0100 ####[facility] [address] [place], [address] MCV (RBC) [Entitic vol] 91.0 fL Normal 80-94 [facility] Comment on above: Order Comment: 109-1 Performed By: #### L 100.0100 ####[facility] [address] [place], [address] Monocytes/100 WBC (Bld) 7.1 % Normal 0-10 [facility] Comment on above: Order Comment: 109-1 Performed By: #### L 100.0100 ####[facility] [address] [place], [address] Neutrophils/100 WBC (Bld) 71.8 % High 47-70 [facility] Comment on above: Order Comment: 109-1 Performed By: #### L 100.0100 ####[facility] [address] [place], [address] Nucleated RBC (Bld) [#/Vol] 0 10*3/uL Normal 0-5 [facility] Comment on above: Order Comment: 109-1 Performed By: #### L 100.0100 ####[facility] [address] [place], [address] Platelet mean volume (Bld) [Entitic vol] 11.3 fL Normal 6.2-12.0 [facility] Comment on above: Order Comment: 109-1 Performed By: #### L 100.0100 ####[facility] [address] [place], [address] Platelets (Bld) [#/Vol] 195 10*3/uL Normal 150-450 [facility] Comment on above: Order Comment: 109-1 Performed By: #### L 100.0100 ####[facility] [address] [place], [address] RBC (Bld) [#/Vol] 4.58 10*6/uL Low 4.6-6.2 [facility] Comment on above: Order Comment: 109-1 Performed By: #### L 100.0100 ####[facility] [address] [place], [address] RDW SD 41.2 fl Normal 35.1-43.9 [facility] Comment on above: Order Comment: 109-1 Performed By: #### L 100.0100 ####[facility] [address] [place], [address] WBC (Bld) [#/Vol] 9.8 10*3/uL Normal 4.4-11.0 [facility] Comment on above: Order Comment: 109-1 Performed By: #### L 100.0100 ####[facility] [address] [place], [address] Eosinophil percentageOrdered By: Renard Burgos on 04-01-2024 Eosinophils/100 WBC (Bld) 0.4 % 0-5 [facility] Erythrocyte distribution wid th ratioOrdered By: Renard Burgos on 04-01-2024 Erythrocyte distribution width (RBC) [Ratio] 12.6 % 11.6-14.6 [facility] Erythrocyte distribution wid th standard deviationOrdered By: Renard Burgos on 04-01-2024 Erythrocyte distribution width (RBC) [Entitic vol] 41.2 fL 35.1-43.9 [facility] Hematocrit Auto (Bld) [Volum e fraction]Ordered By: Renard Burgos on 04-01-2024 Hematocrit (Bld) [Volume fraction] 41.7 % 40-54 [facility] Hemoglobin measurementOrdere d By: Renard Burgos on 04-01-2024 Hemoglobin (Bld) [Mass/Vol] 13.6 g/dL 13.0-16.5 [facility] Immature granulocytes/100 WB C Auto (Bld)Ordered By: Renard Burgos on 04-01-2024 Immature granulocytes/100 WBC (Bld) 0.300 % 0.0-0.9 [facility] Comment on above: IG% - Immature Granu locytes (promyelocytes, myelocytes and metamyelocytes) > 1% indicates that a LEFT SHIFT is Present. Lymphocytes Auto (Unsp spec) [#/Vol]Ordered By: Renard Burgos on 04-01-2024 Lymphocytes (Bld) [#/Vol] 1.97 10*3/uL 0.83-4.51 [facility] Lymphocytes/100 WBC Auto (Un sp spec)Ordered By: Renard Burgos on 04-01-2024 Lymphocytes/100 WBC (Bld) 20.0 % 19-41 [facility] MCV (mean corpuscular volume ) determinationOrdered By: Renard Burgos on 04-01-2024 MCV (RBC) [Entitic vol] 91.0 fL 80-94 [facility] Mean corpuscular hemoglobin (MCH) determinationOrdered By: Renard Burgos on 04-01-2024 MCH (RBC) [Entitic mass] 29.7 pg 27.0-32.0 [facility] Mean corpuscular hemoglobin concentration (MCHC) determinationOrdered By: Renard Burgos on 04-01-2024 MCHC (RBC) [Mass/Vol] 32.6 g/dL 32-36 [facility] Mean platelet volume determi nationOrdered By: Renard Burgos on 04-01-2024 Platelet mean volume (Bld) [Entitic vol] 11.3 fL 6.2-12.0 [facility] Monocyte percentageOrdered B y: Renard Burgos on 04-01-2024 Monocytes/100 WBC (Bld) 7.1 % 0-10 [facility] Neutrophil percentageOrdered By: Renard Burgos on 04-01-2024 Neutrophils/100 WBC (Bld) 71.8 % High 47-70 [facility] Nucleated red blood cell per centageOrdered By: Renard Burgos on 04-01-2024 Nucleated RBC/100 WBC (Bld) [Ratio] 0 % 0-5 [facility] Platelet countOrdered By: Garrick Bhatt on 04-01-2024 Platelets (Bld) [#/Vol] 195 10*3/uL 150-450 [facility] RBC Auto (Bld) [#/Vol]Ordere d By: Renard Burgos on 04-01-2024 RBC (Bld) [#/Vol] 4.58 10*6/uL Low 4.6-6.2 [facility] White blood cell (WBC) count Ordered By: Renard Burgos on 04-01-2024 WBC (Bld) [#/Vol] 9.8 10*3/uL 4.4-11.0 [facility] Absolute neutrophil countOrd ered By: Renard Burgos on 03-25-2024 Neutrophils (Bld) [#/Vol] 5.4 10*3/uL 2.0-7.7 [facility] Basophil percentageOrdered B y: Renard Burgos on 03-25-2024 Basophils/100 WBC (Bld) 0.5 % 0-1 [facility] CBC W/Diff, Automatedon 03-02 Absolute Lymph 2.14 X10 3/uL Normal 0.83-4.51 [facility] Comment on above: Order Comment: 109-1 Performed By: #### L 100.0100 ####[facility] [address] [place], [address] Absolute Neut 5.4 X10 3/uL Normal 2.0-7.7 [facility] Comment on above: Order Comment: 109-1 Performed By: #### L 100.0100 ####[facility] [address] [place], [address] Basophils/100 WBC (Bld) 0.5 % Normal 0-1 [facility] Comment on above: Order Comment: 109-1 Performed By: #### L 100.0100 ####[facility] [address] [place], [address] Eosinophils/100 WBC (Bld) 0.7 % Normal 0-5 [facility] Comment on above: Order Comment: 109-1 Performed By: #### L 100.0100 ####[facility] [address] [place], [address] Erythrocyte distribution width (RBC) [Ratio] 12.7 % Normal 11.6-14.6 [facility] Comment on above: Order Comment: 109-1 Performed By: #### L 100.0100 ####[facility] [address] [place], [address] Hematocrit (Bld) [Volume fraction] 42.3 % Normal 40-54 [facility] Comment on above: Order Comment: 109-1 Performed By: #### L 100.0100 ####[facility] [address] [place], [address] Hemoglobin (Bld) [Mass/Vol] 13.7 g/dL Normal 13.0-16.5 [facility] Comment on above: Order Comment: 109-1 Performed By: #### L 100.0100 ####[facility] [address] [place], [address] IG% 0.500 Normal 0.0-0.9 [facility] Comment on above: Order Comment: 109-1 Result Comment: IG% - Immature Granulocytes (promyelocytes, myelocytes andmetamyelocytes) > 1% indicates that a LEFT SHIFT is Present. Performed By: #### L 100.0100 ####[facility] [address] [place], [address] Lymphocytes/100 WBC (Bld) 25.8 % Normal 19-41 [facility] Comment on above: Order Comment: 109-1 Performed By: #### L 100.0100 ####[facility] [address] [place], [address] MCH (RBC) [Entitic mass] 29.2 pg Normal 27.0-32.0 [facility] Comment on above: Order Comment: 109-1 Performed By: #### L 100.0100 ####[facility] [address] [place], [address] MCHC (RBC) [Mass/Vol] 32.4 g/dL Normal 32-36 [facility] Comment on above: Order Comment: 109-1 Performed By: #### L 100.0100 ####[facility] [address] [place], [address] MCV (RBC) [Entitic vol] 90.2 fL Normal 80-94 [facility] Comment on above: Order Comment: 109-1 Performed By: #### L 100.0100 ####[facility] [address] [place], [address] Monocytes/100 WBC (Bld) 8.0 % Normal 0-10 [facility] Comment on above: Order Comment: 109-1 Performed By: #### L 100.0100 ####[facility] [address] [place], [address] Neutrophils/100 WBC (Bld) 64.5 % Normal 47-70 [facility] Comment on above: Order Comment: 109-1 Performed By: #### L 100.0100 ####[facility] [address] [place], [address] Nucleated RBC (Bld) [#/Vol] 0 10*3/uL Normal 0-5 [facility] Comment on above: Order Comment: 109-1 Performed By: #### L 100.0100 ####[facility] [address] [place], [address] Platelet mean volume (Bld) [Entitic vol] 11.2 fL Normal 6.2-12.0 [facility] Comment on above: Order Comment: 109-1 Performed By: #### L 100.0100 ####[facility] [address] [place], [address] Platelets (Bld) [#/Vol] 204 10*3/uL Normal 150-450 [facility] Comment on above: Order Comment: 109-1 Performed By: #### L 100.0100 ####[facility] [address] [place], [address] RBC (Bld) [#/Vol] 4.69 10*6/uL Normal 4.6-6.2 [facility] Comment on above: Order Comment: 109-1 Performed By: #### L 100.0100 ####[facility] [address] [place], [address] RDW SD 41.8 fl Normal 35.1-43.9 [facility] Comment on above: Order Comment: 109-1 Performed By: #### L 100.0100 ####[facility] [address] [place], [address] WBC (Bld) [#/Vol] 8.3 10*3/uL Normal 4.4-11.0 [facility] Comment on above: Order Comment: 109-1 Performed By: #### L 100.0100 ####[facility] [address] [place], [address] Eosinophil percentageOrdered By: Renard Burgos on 03-25-2024 Eosinophils/100 WBC (Bld) 0.7 % 0-5 [facility] Erythrocyte distribution wid th ratioOrdered By: Renard Burgos on 03-25-2024 Erythrocyte distribution width (RBC) [Ratio] 12.7 % 11.6-14.6 [facility] Erythrocyte distribution wid th standard deviationOrdered By: Renard Burgos on 03-25-2024 Erythrocyte distribution width (RBC) [Entitic vol] 41.8 fL 35.1-43.9 [facility] Hematocrit Auto (Bld) [Volum e fraction]Ordered By: Renard Burgos on 03-25-2024 Hematocrit (Bld) [Volume fraction] 42.3 % 40-54 [facility] Hemoglobin measurementOrdere d By: Renard Burgos on 03-25-2024 Hemoglobin (Bld) [Mass/Vol] 13.7 g/dL 13.0-16.5 [facility] Immature granulocytes/100 WB C Auto (Bld)Ordered By: Renard Burgos on 03-25-2024 Immature granulocytes/100 WBC (Bld) 0.500 % 0.0-0.9 [facility] Comment on above: IG% - Immature Granu locytes (promyelocytes, myelocytes and metamyelocytes) > 1% indicates that a LEFT SHIFT is Present. Lymphocytes Auto (Unsp spec) [#/Vol]Ordered By: Renard Burgos on 03-25-2024 Lymphocytes (Bld) [#/Vol] 2.14 10*3/uL 0.83-4.51 [facility] Lymphocytes/100 WBC Auto (Un sp spec)Ordered By: Renard Burgos on 03-25-2024 Lymphocytes/100 WBC (Bld) 25.8 % 19-41 [facility] MCV (mean corpuscular volume ) determinationOrdered By: Renard Burgos on 03-25-2024 MCV (RBC) [Entitic vol] 90.2 fL 80-94 [facility] Mean corpuscular hemoglobin (MCH) determinationOrdered By: Renard Burgos on 03-25-2024 MCH (RBC) [Entitic mass] 29.2 pg 27.0-32.0 [facility] Mean corpuscular hemoglobin concentration (MCHC) determinationOrdered By: Renard Burgos on 03-25-2024 MCHC (RBC) [Mass/Vol] 32.4 g/dL 32-36 [facility] Mean platelet volume determi nationOrdered By: Renard Burgos on 03-25-2024 Platelet mean volume (Bld) [Entitic vol] 11.2 fL 6.2-12.0 [facility] Monocyte percentageOrdered B y: Renard Burgos on 03-25-2024 Monocytes/100 WBC (Bld) 8.0 % 0-10 [facility] Neutrophil percentageOrdered By: Renard Burgos on 03-25-2024 Neutrophils/100 WBC (Bld) 64.5 % 47-70 [facility] Nucleated red blood cell per centageOrdered By: Renard Burgos on 03-25-2024 Nucleated RBC/100 WBC (Bld) [Ratio] 0 % 0-5 [facility] Platelet countOrdered By: Garrick Bhatt on 03-25-2024 Platelets (Bld) [#/Vol] 204 10*3/uL 150-450 [facility] RBC Auto (Bld) [#/Vol]Ordere d By: Renard Burgos on 03-25-2024 RBC (Bld) [#/Vol] 4.69 10*6/uL 4.6-6.2 [facility] White blood cell (WBC) count Ordered By: Renard Burgos on 03-25-2024 WBC (Bld) [#/Vol] 8.3 10*3/uL 4.4-11.0 [facility] Absolute neutrophil countOrd ered By: Renard Burgos on 03-18-2024 Neutrophils (Bld) [#/Vol] 5.2 10*3/uL 2.0-7.7 [facility] Basophil percentageOrdered B y: Renard Burgos on 03-18-2024 Basophils/100 WBC (Bld) 0.6 % 0-1 [facility] CBC W/Diff, Automatedon 03-01-2023 Absolute Lymph 2.23 X10 3/uL Normal 0.83-4.51 [facility] Comment on above: Order Comment: 109.1 Performed By: #### L 100.0100 ####[facility] [address] [place], [address] Absolute Neut 5.2 X10 3/uL Normal 2.0-7.7 [facility] Comment on above: Order Comment: 109.1 Performed By: #### L 100.0100 ####[facility] [address] [place], [address] Basophils/100 WBC (Bld) 0.6 % Normal 0-1 [facility] Comment on above: Order Comment: 109.1 Performed By: #### L 100.0100 ####[facility] [address] [place], [address] Eosinophils/100 WBC (Bld) 0.7 % Normal 0-5 [facility] Comment on above: Order Comment: 109.1 Performed By: #### L 100.0100 ####[facility] [address] [place], [address] Erythrocyte distribution width (RBC) [Ratio] 12.8 % Normal 11.6-14.6 [facility] Comment on above: Order Comment: 109.1 Performed By: #### L 100.0100 ####[facility] [address] [place], [address] Hematocrit (Bld) [Volume fraction] 42.0 % Normal 40-54 [facility] Comment on above: Order Comment: 109.1 Performed By: #### L 100.0100 ####[facility] [address] [place], [address] Hemoglobin (Bld) [Mass/Vol] 13.6 g/dL Normal 13.0-16.5 [facility] Comment on above: Order Comment: 109.1 Performed By: #### L 100.0100 ####[facility] [address] [place], [address] IG% 0.500 Normal 0.0-0.9 [facility] Comment on above: Order Comment: 109.1 Result Comment: IG% - Immature Granulocytes (promyelocytes, myelocytes andmetamyelocytes) > 1% indicates that a LEFT SHIFT is Present. Performed By: #### L 100.0100 ####[facility] [address] [place], [address] Lymphocytes/100 WBC (Bld) 27.0 % Normal 19-41 [facility] Comment on above: Order Comment: 109.1 Performed By: #### L 100.0100 ####[facility] [address] [place], [address] MCH (RBC) [Entitic mass] 29.5 pg Normal 27.0-32.0 [facility] Comment on above: Order Comment: 109.1 Performed By: #### L 100.0100 ####[facility] [address] [place], [address] MCHC (RBC) [Mass/Vol] 32.4 g/dL Normal 32-36 [facility] Comment on above: Order Comment: 109.1 Performed By: #### L 100.0100 ####[facility] [address] [place], [address] MCV (RBC) [Entitic vol] 91.1 fL Normal 80-94 [facility] Comment on above: Order Comment: 109.1 Performed By: #### L 100.0100 ####[facility] [address] [place], [address] Monocytes/100 WBC (Bld) 8.5 % Normal 0-10 [facility] Comment on above: Order Comment: 109.1 Performed By: #### L 100.0100 ####[facility] [address] [place], [address] Neutrophils/100 WBC (Bld) 62.7 % Normal 47-70 [facility] Comment on above: Order Comment: 109.1 Performed By: #### L 100.0100 ####[facility] [address] [place], [address] Nucleated RBC (Bld) [#/Vol] 0 10*3/uL Normal 0-5 [facility] Comment on above: Order Comment: 109.1 Performed By: #### L 100.0100 ####[facility] [address] [place], [address] Platelet mean volume (Bld) [Entitic vol] 10.8 fL Normal 6.2-12.0 [facility] Comment on above: Order Comment: 109.1 Performed By: #### L 100.0100 ####[facility] [address] [place], [address] Platelets (Bld) [#/Vol] 211 10*3/uL Normal 150-450 [facility] Comment on above: Order Comment: 109.1 Performed By: #### L 100.0100 ####[facility] [address] [place], [address] RBC (Bld) [#/Vol] 4.61 10*6/uL Normal 4.6-6.2 [facility] Comment on above: Order Comment: 109.1 Performed By: #### L 100.0100 ####[facility] [address] [place], [address] RDW SD 42.3 fl Normal 35.1-43.9 [facility] Comment on above: Order Comment: 109.1 Performed By: #### L 100.0100 ####[facility] [address] [place], [address] WBC (Bld) [#/Vol] 8.3 10*3/uL Normal 4.4-11.0 [facility] Comment on above: Order Comment: 109.1 Performed By: #### L 100.0100 ####[facility] [address] [place], [address] Eosinophil percentageOrdered By: Renard Burgos on 03-18-2024 Eosinophils/100 WBC (Bld) 0.7 % 0-5 [facility] Erythrocyte distribution wid th ratioOrdered By: Renard Burgos on 03-18-2024 Erythrocyte distribution width (RBC) [Ratio] 12.8 % 11.6-14.6 [facility] Erythrocyte distribution wid th standard deviationOrdered By: Renard Burgos on 03-18-2024 Erythrocyte distribution width (RBC) [Entitic vol] 42.3 fL 35.1-43.9 [facility] Hematocrit Auto (Bld) [Volum e fraction]Ordered By: Renard Burgos on 03-18-2024 Hematocrit (Bld) [Volume fraction] 42.0 % 40-54 [facility] Hemoglobin measurementOrdere d By: Renard Burgos on 03-18-2024 Hemoglobin (Bld) [Mass/Vol] 13.6 g/dL 13.0-16.5 [facility] Immature granulocytes/100 WB C Auto (Bld)Ordered By: Renard Burgos on 03-18-2024 Immature granulocytes/100 WBC (Bld) 0.500 % 0.0-0.9 [facility] Comment on above: IG% - Immature Granu locytes (promyelocytes, myelocytes and metamyelocytes) > 1% indicates that a LEFT SHIFT is Present. Lymphocytes Auto (Unsp spec) [#/Vol]Ordered By: Renard Burgos on 03-18-2024 Lymphocytes (Bld) [#/Vol] 2.23 10*3/uL 0.83-4.51 [facility] Lymphocytes/100 WBC Auto (Un sp spec)Ordered By: Renard Burgos on 03-18-2024 Lymphocytes/100 WBC (Bld) 27.0 % 19-41 [facility] MCV (mean corpuscular volume ) determinationOrdered By: Renard Burgos on 03-18-2024 MCV (RBC) [Entitic vol] 91.1 fL 80-94 [facility] Mean corpuscular hemoglobin (MCH) determinationOrdered By: Renard Burgos on 03-18-2024 MCH (RBC) [Entitic mass] 29.5 pg 27.0-32.0 [facility] Mean corpuscular hemoglobin concentration (MCHC) determinationOrdered By: Renard Burgos on 03-18-2024 MCHC (RBC) [Mass/Vol] 32.4 g/dL 32-36 [facility] Mean platelet volume determi nationOrdered By: Renard Burgos on 03-18-2024 Platelet mean volume (Bld) [Entitic vol] 10.8 fL 6.2-12.0 [facility] Monocyte percentageOrdered B y: Renard Burgos on 03-18-2024 Monocytes/100 WBC (Bld) 8.5 % 0-10 [facility] Neutrophil percentageOrdered By: Renard Burgos on 03-18-2024 Neutrophils/100 WBC (Bld) 62.7 % 47-70 [facility] Nucleated red blood cell per centageOrdered By: Renard Burgos on 03-18-2024 Nucleated RBC/100 WBC (Bld) [Ratio] 0 % 0-5 [facility] Platelet countOrdered By: Garrick Bhatt on 03-18-2024 Platelets (Bld) [#/Vol] 211 10*3/uL 150-450 [facility] RBC Auto (Bld) [#/Vol]Ordere d By: Renard Burgos on 03-18-2024 RBC (Bld) [#/Vol] 4.61 10*6/uL 4.6-6.2 [facility] White blood cell (WBC) count Ordered By: Renard Burgos on 03-18-2024 WBC (Bld) [#/Vol] 8.3 10*3/uL 4.4-11.0 [facility] Absolute neutrophil countOrd ered By: Renard Burgos on 03-11-2024 Neutrophils (Bld) [#/Vol] 6.2 10*3/uL 2.0-7.7 [facility] Automated blood erythrocyte countOrdered By: Renard Burgos on 03-11-2024 RBC (Bld) [#/Vol] 4.54 10*6/uL Low 4.6-6.2 [facility] Comment on above: Order Comment: 109.1 Performed By: #### L 100.0100 ####[facility] [address] [place], [place], [phone] Automated blood hematocrit ( percentage)Ordered By: Renard Burgos on 03-11-2024 Hematocrit (Bld) [Volume fraction] 41.5 % Normal 40-54 [facility] Comment on above: Order Comment: 109.1 Performed By: #### L 100.0100 ####[facility] [address] [place], [address] Automated lymphocyte count a s percentage of total leukocytesOrdered By: Renard Burgos on 03-11-2024 Lymphocytes/100 WBC (Bld) 25.6 % Normal 19-41 [facility] Comment on above: Order Comment: 109.1 Performed By: #### L 100.0100 ####[facility] [address] [place], [address] Basophil percentageOrdered B y: Renard Burgos on 03-11-2024 Basophils/100 WBC (Bld) 0.5 % Normal 0-1 [facility] Comment on above: Order Comment: 109.1 Performed By: #### L 100.0100 ####[facility] [address] [place], [address] CBC W/Diff, Automatedon 03-01 Absolute Lymph 2.50 X10 3/uL Normal 0.83-4.51 [facility] Comment on above: Order Comment: 109.1 Performed By: #### L 100.0100 ####[facility] [address] [place], [address] Absolute Neut 6.2 X10 3/uL Normal 2.0-7.7 [facility] Comment on above: Order Comment: 109.1 Performed By: #### L 100.0100 ####[facility] [address] [place], [address] IG% 0.500 Normal 0.0-0.9 [facility] Comment on above: Order Comment: 109.1 Result Comment: IG% - Immature Granulocytes (promyelocytes, myelocytes andmetamyelocytes) > 1% indicates that a LEFT SHIFT is Present. Performed By: #### L 100.0100 ####[facility] [address] [place], [address] Nucleated RBC (Bld) [#/Vol] 0 10*3/uL Normal 0-5 [facility] Comment on above: Order Comment: 109.1 Performed By: #### L 100.0100 ####[facility] [address] [place], [address] RDW SD 41.5 fl Normal 35.1-43.9 [facility] Comment on above: Order Comment: 109.1 Performed By: #### L 100.0100 ####[facility] [address] [place], [address] Eosinophil percentageOrdered By: Renard Burgos on 03-11-2024 Eosinophils/100 WBC (Bld) 0.6 % Normal 0-5 [facility] Comment on above: Order Comment: 109.1 Performed By: #### L 100.0100 ####[facility] [address] [place], [place], [phone] Erythrocyte distribution wid th ratioOrdered By: Renard Burgos on 03-11-2024 Erythrocyte distribution width (RBC) [Ratio] 12.7 % Normal 11.6-14.6 [facility] Comment on above: Order Comment: 109.1 Performed By: #### L 100.0100 ####[facility] [address] [place], [place], [id number] Erythrocyte distribution wid th standard deviationOrdered By: Renard Burgos on 03-11-2024 Erythrocyte distribution width (RBC) [Entitic vol] 41.5 fL 35.1-43.9 [facility] Hemoglobin measurementOrdere d By: Renard Burgos on 03-11-2024 Hemoglobin (Bld) [Mass/Vol] 13.8 g/dL Normal 13.0-16.5 [facility] Comment on above: Order Comment: 109.1 Performed By: #### L 100.0100 ####[facility] [address] [place], [place], [phone] Immature granulocytes/100 WB C Auto (Bld)Ordered By: Renard uBrgos on 03-11-2024 Immature granulocytes/100 WBC (Bld) 0.500 % 0.0-0.9 [facility] Comment on above: IG% - Immature Granu locytes (promyelocytes, myelocytes and metamyelocytes) > 1% indicates that a LEFT SHIFT is Present. Lymphocytes Auto (Unsp spec) [#/Vol]Ordered By: Renard Burgos on 03-11-2024 Lymphocytes (Bld) [#/Vol] 2.50 10*3/uL 0.83-4.51 [facility] MCV (mean corpuscular volume ) determinationOrdered By: Renard Burgos on 03-11-2024 MCV (RBC) [Entitic vol] 91.4 fL Normal 80-94 [facility] Comment on above: Order Comment: 109.1 Performed By: #### L 100.0100 ####[facility] [address] [place], [place], [phone] Mean corpuscular hemoglobin (MCH) determinationOrdered By: Renard Burgos on 03-11-2024 MCH (RBC) [Entitic mass] 30.4 pg Normal 27.0-32.0 [facility] Comment on above: Order Comment: 109.1 Performed By: #### L 100.0100 ####[facility] [address] [place], [address] Mean corpuscular hemoglobin concentration (MCHC) determinationOrdered By: Renard Burgos on 03-11-2024 MCHC (RBC) [Mass/Vol] 33.3 g/dL Normal 32-36 [facility] Comment on above: Order Comment: 109.1 Performed By: #### L 100.0100 ####[facility] [address] [place], [phone] Mean platelet volume determi nationOrdered By: Renard Burgos on 03-11-2024 Platelet mean volume (Bld) [Entitic vol] 11.0 fL Normal 6.2-12.0 [facility] Comment on above: Order Comment: 109.1 Performed By: #### L 100.0100 ####[facility] [address] [place], [address] Monocyte percentageOrdered B y: Renard Burgos on 03-11-2024 Monocytes/100 WBC (Bld) 9.0 % Normal 0-10 [facility] Comment on above: Order Comment: 109.1 Performed By: #### L 100.0100 ####[facility] [address] [place], [address] Neutrophil percentageOrdered By: Renard Burgos on 03-11-2024 Neutrophils/100 WBC (Bld) 63.8 % Normal 47-70 [facility] Comment on above: Order Comment: 109.1 Performed By: #### L 100.0100 ####[facility] [address] [place], [address] Nucleated red blood cell per centageOrdered By: Renard Burgos on 03-11-2024 Nucleated RBC/100 WBC (Bld) [Ratio] 0 % 0-5 [facility] Platelet countOrdered By: Garrick Bhatt on 03-11-2024 Platelets (Bld) [#/Vol] 220 10*3/uL Normal 150-450 [facility] Comment on above: Order Comment: 109.1 Performed By: #### L 100.0100 ####[facility] [address] [place], [address] White blood cell (WBC) count Ordered By: Renard Burgos on 03-11-2024 WBC (Bld) [#/Vol] 9.8 10*3/uL Normal 4.4-11.0 [facility] Comment on above: Order Comment: 109.1 Performed By: #### L 100.0100 ####[facility] [address] [place], [address] CBC W/Diff, Automatedon 11-0 -2023 Absolute Lymph 1.99 X10 3/uL Normal 0.83-4.51 [facility] Comment on above: Order Comment: 109.1 Performed By: #### L 100.0100 ####[facility] [address] [place], [address] Absolute Neut 5.3 X10 3/uL Normal 2.0-7.7 [facility] Comment on above: Order Comment: 109.1 Performed By: #### L 100.0100 ####[facility] [address] [place], [address] Basophils/100 WBC (Bld) 0.6 % Normal 0-1 [facility] Comment on above: Order Comment: 109.1 Performed By: #### L 100.0100 ####[facility] [address] [place], [address] Eosinophils/100 WBC (Bld) 0.7 % Normal 0-5 [facility] Comment on above: Order Comment: 109.1 Performed By: #### L 100.0100 ####[facility] [address] [place], [address] Erythrocyte distribution width (RBC) [Ratio] 12.7 % Normal 11.6-14.6 [facility] Comment on above: Order Comment: 109.1 Performed By: #### L 100.0100 ####[facility] [address] [place], [address] Hematocrit (Bld) [Volume fraction] 42.1 % Normal 40-54 [facility] Comment on above: Order Comment: 109.1 Performed By: #### L 100.0100 ####[facility] [address] [place], [address] Hemoglobin (Bld) [Mass/Vol] 14.0 g/dL Normal 13.0-16.5 [facility] Comment on above: Order Comment: 109.1 Performed By: #### L 100.0100 ####[facility] [address] [place], [address] IG% 0.400 Normal 0.0-0.9 [facility] Comment on above: Order Comment: 109.1 Result Comment: IG% - Immature Granulocytes (promyelocytes, myelocytes andmetamyelocytes) > 1% indicates that a LEFT SHIFT is Present. Performed By: #### L 100.0100 ####[facility] [address] [place], [address] Lymphocytes/100 WBC (Bld) 24.5 % Normal 19-41 [facility] Comment on above: Order Comment: 109.1 Performed By: #### L 100.0100 ####[facility] [address] [place], [address] MCH (RBC) [Entitic mass] 30.2 pg Normal 27.0-32.0 [facility] Comment on above: Order Comment: 109.1 Performed By: #### L 100.0100 ####[facility] [address] [place], [address] MCHC (RBC) [Mass/Vol] 33.3 g/dL Normal 32-36 [facility] Comment on above: Order Comment: 109.1 Performed By: #### L 100.0100 ####[facility] [address] [place], [address] MCV (RBC) [Entitic vol] 90.7 fL Normal 80-94 [facility] Comment on above: Order Comment: 109.1 Performed By: #### L 100.0100 ####[facility] [address] [place], [address] Monocytes/100 WBC (Bld) 8.2 % Normal 0-10 [facility] Comment on above: Order Comment: 109.1 Performed By: #### L 100.0100 ####[facility] [address] [place], [address] Neutrophils/100 WBC (Bld) 65.6 % Normal 47-70 [facility] Comment on above: Order Comment: 109.1 Performed By: #### L 100.0100 ####[facility] [address] [place], [address] Nucleated RBC (Bld) [#/Vol] 0 10*3/uL Normal 0-5 [facility] Comment on above: Order Comment: 109.1 Performed By: #### L 100.0100 ####[facility] [address] [place], [address] Platelet mean volume (Bld) [Entitic vol] 11.0 fL Normal 6.2-12.0 [facility] Comment on above: Order Comment: 109.1 Performed By: #### L 100.0100 ####[facility] [address] [place], [address] Platelets (Bld) [#/Vol] 216 10*3/uL Normal 150-450 [facility] Comment on above: Order Comment: 109.1 Performed By: #### L 100.0100 ####[facility] [address] [place], [address] RBC (Bld) [#/Vol] 4.64 10*6/uL Normal 4.6-6.2 [facility] Comment on above: Order Comment: 109.1 Performed By: #### L 100.0100 ####[facility] [address] [place], [address] RDW SD 41.9 fl Normal 35.1-43.9 [facility] Comment on above: Order Comment: 109.1 Performed By: #### L 100.0100 ####[facility] [address] [place], [address] WBC (Bld) [#/Vol] 8.1 10*3/uL Normal 4.4-11.0 [facility] Comment on above: Order Comment: 109.1 Performed By: #### L 100.0100 ####[facility] [address] [place], [address] CBC W/Diff, Automatedon 10-2 8-2023 Absolute Lymph 2.15 X10 3/uL Normal 0.83-4.51 [facility] Comment on above: Order Comment: 109.1 Performed By: #### L 100.0100 ####[facility] [address] [place], [address] Absolute Neut 7.1 X10 3/uL Normal 2.0-7.7 [facility] Comment on above: Order Comment: 109.1 Performed By: #### L 100.0100 ####[facility] [address] [place], [address] Basophils/100 WBC (Bld) 0.4 % Normal 0-1 [facility] Comment on above: Order Comment: 109.1 Performed By: #### L 100.0100 ####[facility] [address] [place], [address] Eosinophils/100 WBC (Bld) 0.6 % Normal 0-5 [facility] Comment on above: Order Comment: 109.1 Performed By: #### L 100.0100 ####[facility] [address] [place], [address] Erythrocyte distribution width (RBC) [Ratio] 12.6 % Normal 11.6-14.6 [facility] Comment on above: Order Comment: 109.1 Performed By: #### L 100.0100 ####[facility] [address] [place], [address] Hematocrit (Bld) [Volume fraction] 40.2 % Normal 40-54 [facility] Comment on above: Order Comment: 109.1 Performed By: #### L 100.0100 ####[facility] [address] [place], [address] Hemoglobin (Bld) [Mass/Vol] 13.6 g/dL Normal 13.0-16.5 [facility] Comment on above: Order Comment: 109.1 Performed By: #### L 100.0100 ####[facility] [address] [place], [address] IG% 0.500 Normal 0.0-0.9 [facility] Comment on above: Order Comment: 109.1 Result Comment: IG% - Immature Granulocytes (promyelocytes, myelocytes andmetamyelocytes) > 1% indicates that a LEFT SHIFT is Present. Performed By: #### L 100.0100 ####[facility] [address] [place], [address] Lymphocytes/100 WBC (Bld) 20.9 % Normal 19-41 [facility] Comment on above: Order Comment: 109.1 Performed By: #### L 100.0100 ####[facility] [address] [place], [address] MCH (RBC) [Entitic mass] 30.6 pg Normal 27.0-32.0 [facility] Comment on above: Order Comment: 109.1 Performed By: #### L 100.0100 ####[facility] [address] [place], [address] MCHC (RBC) [Mass/Vol] 33.8 g/dL Normal 32-36 [facility] Comment on above: Order Comment: 109.1 Performed By: #### L 100.0100 ####[facility] [address] [place], [address] MCV (RBC) [Entitic vol] 90.5 fL Normal 80-94 [facility] Comment on above: Order Comment: 109.1 Performed By: #### L 100.0100 ####[facility] [address] [place], [address] Monocytes/100 WBC (Bld) 8.5 % Normal 0-10 [facility] Comment on above: Order Comment: 109.1 Performed By: #### L 100.0100 ####[facility] [address] [place], [address] Neutrophils/100 WBC (Bld) 69.1 % Normal 47-70 [facility] Comment on above: Order Comment: 109.1 Performed By: #### L 100.0100 ####[facility] [address] [place], [address] Nucleated RBC (Bld) [#/Vol] 0 10*3/uL Normal 0-5 [facility] Comment on above: Order Comment: 109.1 Performed By: #### L 100.0100 ####[facility] [address] [place], [address] Platelet mean volume (Bld) [Entitic vol] 11.2 fL Normal 6.2-12.0 [facility] Comment on above: Order Comment: 109.1 Performed By: #### L 100.0100 ####[facility] [address] [place], [address] Platelets (Bld) [#/Vol] 226 10*3/uL Normal 150-450 [facility] Comment on above: Order Comment: 109.1 Performed By: #### L 100.0100 ####[facility] [address] [place], [address] RBC (Bld) [#/Vol] 4.44 10*6/uL Low 4.6-6.2 [facility] Comment on above: Order Comment: 109.1 Performed By: #### L 100.0100 ####[facility] [address] [place], [address] RDW SD 41.5 fl Normal 35.1-43.9 [facility] Comment on above: Order Comment: 109.1 Performed By: #### L 100.0100 ####[facility] [address] [place], [address] WBC (Bld) [#/Vol] 10.3 10*3/uL Normal 4.4-11.0 [facility] Comment on above: Order Comment: 109.1 Performed By: #### L 100.0100 ####[facility] [address] [place], [address] CBC-Complete Blood Cnt No Di ffon 02-23-2024 Erythrocyte distribution width (RBC) [Ratio] 12.9 % Normal 11.6-14.6 [facility] Comment on above: Order Comment: 109-1 Performed By: #### L 100.0500, L500.4100, L500.4050 ####[facility] [address] [place], [address] Hematocrit (Bld) [Volume fraction] 41.6 % Normal 40-54 [facility] Comment on above: Order Comment: 109-1 Performed By: #### L 100.0500, L500.4100, L500.4050 ####[facility] [address] [place], [address] Hemoglobin (Bld) [Mass/Vol] 14.0 g/dL Normal 13.0-16.5 [facility] Comment on above: Order Comment: 109-1 Performed By: #### L 100.0500, L500.4100, L500.4050 ####[facility] [address] [place], [address] MCH (RBC) [Entitic mass] 30.6 pg Normal 27.0-32.0 [facility] Comment on above: Order Comment: 109-1 Performed By: #### L 100.0500, L500.4100, L500.4050 ####[facility] [address] [place], [address] MCHC (RBC) [Mass/Vol] 33.7 g/dL Normal 32-36 [facility] Comment on above: Order Comment: 109-1 Performed By: #### L 100.0500, L500.4100, L500.4050 ####[facility] [address] [place], [address] MCV (RBC) [Entitic vol] 91.0 fL Normal 80-94 [facility] Comment on above: Order Comment: 109-1 Performed By: #### L 100.0500, L500.4100, L500.4050 ####[facility] [address] [place], [address] Platelet mean volume (Bld) [Entitic vol] 11.5 fL Normal 6.2-12.0 [facility] Comment on above: Order Comment: 109-1 Performed By: #### L 100.0500, L500.4100, L500.4050 ####[facility] [address] [place], [address] Platelets (Bld) [#/Vol] 209 10*3/uL Normal 150-450 [facility] Comment on above: Order Comment: 109-1 Performed By: #### L 100.0500, L500.4100, L500.4050 ####[facility] [address] [place], [address] RBC (Bld) [#/Vol] 4.57 10*6/uL Low 4.6-6.2 [facility] Comment on above: Order Comment: 109-1 Performed By: #### L 100.0500, L500.4100, L500.4050 ####[facility] [address] [place], [address] RDW SD 42.4 fl Normal 35.1-43.9 [facility] Comment on above: Order Comment: 109-1 Performed By: #### L 100.0500, L500.4100, L500.4050 ####[facility] [address] [place], [address] WBC (Bld) [#/Vol] 8.4 10*3/uL Normal 4.4-11.0 [facility] Comment on above: Order Comment: 109-1 Performed By: #### L 100.0500, L500.4100, L500.4050 ####[facility] [address] [place], [address] Comprehensive Metabolic Prof ilon 02-23-2024 Albumin [Mass/Vol] 3.1 g/dL Low 3.2-5.0 [facility] Comment on above: Order Comment: 109-1 Performed By: #### L 100.0500, L500.4100, L500.4050 ####[facility] [address] [place], [address] Albumin/Globulin [Mass ratio] 1.1 {ratio} Normal 0.9-2.4 [facility] Comment on above: Order Comment: 109-1 Performed By: #### L 100.0500, L500.4100, L500.4050 ####[facility] [address] [place], [address] ALK P 123 U/L High 45-117 [facility] Comment on above: Order Comment: 109-1 Performed By: #### L 100.0500, L500.4100, L500.4050 ####[facility] [address] [place], [address] ALT [Catalytic activity/Vol] 16 U/L Normal 16-61 [facility] Comment on above: Order Comment: 109-1 Performed By: #### L 100.0500, L500.4100, L500.4050 ####[facility] [address] [place], [address] AST [Catalytic activity/Vol] 10 U/L Low 15-37 [facility] Comment on above: Order Comment: 109-1 Performed By: #### L 100.0500, L500.4100, L500.4050 ####[facility] [address] [place], [address] Bilirubin [Mass/Vol] 0.50 mg/dL Normal 0.20-1.00 [facility] Comment on above: Order Comment: 109-1 Result Comment: For patients on eltrombopag therapy, use of Dimension [place] TBIL is not recommended. Performed By: #### L 100.0500, L500.4100, L500.4050 ####[facility] [address] [place], [address] BUN/CRE 24.9 RATIO High 10-20 [facility] Comment on above: Order Comment: 109-1 Performed By: #### L 100.0500, L500.4100, L500.4050 ####[facility] [address] [place], [address] CA,Total 8.5 mg/dL Normal 8.5-10.1 [facility] Comment on above: Order Comment: 109-1 Performed By: #### L 100.0500, L500.4100, L500.4050 ####[facility] [address] [place], [address] Chloride [Moles/Vol] 109 mmol/L High 98-107 [facility] Comment on above: Order Comment: 109-1 Performed By: #### L 100.0500, L500.4100, L500.4050 ####[facility] [address] [place], [address] CO2 [Moles/Vol] 27.0 mmol/L Normal 21.0-32.0 [facility] Comment on above: Order Comment: 109-1 Performed By: #### L 100.0500, L500.4100, L500.4050 ####[facility] [address] [place], [address] Creatinine [Mass/Vol] 0.64 mg/dL Low 0.70-1.30 [facility] Comment on above: Order Comment: 109-1 Result Comment: The validity of the calculated GFR GFRAA in patients over70 years has not been determined. Clinical correlation isessential. Performed By: #### L 100.0500, L500.4100, L500.4050 ####[facility] [address] [place], [address] EST GFR - AA 160 mL/min Normal >60 [facility] Comment on above: Order Comment: 109-1 Result Comment: Afri can Sudanese GFR Calc Performed By: #### L 100.0500, L500.4100, L500.4050 ####[facility] [address] [place], [address] GAP 6 Normal 5-15 [facility] Comment on above: Order Comment: 109-1 Performed By: #### L 100.0500, L500.4100, L500.4050 ####[facility] [address] [place], [address] GFR/1.73 sq M.predicted among non-blacks MDRD (S/P/Bld) [Vol rate/Area] 132 mL/min/{1.73_m2} Normal >60 [facility] Comment on above: Order Comment: 109- Result Comment: Non- GFR Calc Performed By: #### L 100.0500, L500.4100, L500.4050 ####[facility] [address] [place], [address] Globulin (S) [Mass/Vol] 2.9 g/dL Normal 2.2-4.2 [facility] Comment on above: Order Comment: 109-1 Performed By: #### L 100.0500, L500.4100, L500.4050 ####[facility] [address] [place], [address] Glucose [Mass/Vol] 111 mg/dL High 74-106 [facility] Comment on above: Order Comment: 109- Result Comment: Fast ing Glucose result from 100 to 125 mg/dLsuggests IMPAIRED HOMEOSTASIS per A.D.A. criteria. Performed By: #### L 100.0500, L500.4100, L500.4050 ####[facility] [address] [place], [address] Potassium [Moles/Vol] 3.6 mmol/L Normal 3.5-5.1 [facility] Comment on above: Order Comment: 109-1 Performed By: #### L 100.0500, L500.4100, L500.4050 ####[facility] [address] [place], [address] Sodium [Moles/Vol] 141 mmol/L Normal 136-145 [facility] Comment on above: Order Comment: 109-1 Performed By: #### L 100.0500, L500.4100, L500.4050 ####[facility] [address] [place], [address] T PROT 6.0 g/dL Low 6.4-8.2 [facility] Comment on above: Order Comment: 109-1 Performed By: #### L 100.0500, L500.4100, L500.4050 ####[facility] [address] [place], [address] Urea nitrogen [Mass/Vol] 16 mg/dL Normal 7-18 [facility] Comment on above: Order Comment: 109-1 Performed By: #### L 100.0500, L500.4100, L500.4050 ####[facility] [address] [place], [address] Lipid Profileon 02-23-2024 Cholesterol [Mass/Vol] 123 mg/dL Normal [address] [facility] Comment on above: Order Comment: 109-1 Result Comment: <200 mg/dL Desirable 200-240 mg/dL Borderline >240 mg/dL High Risk Performed By: #### L 100.0500, L500.4100, L500.4050 ####[facility] [address] [place], [address] Cholesterol in HDL [Mass/Vol] 28 mg/dL Low [facility] Comment on above: Order Comment: 109-1 Result Comment: The drugs N-Acetylcysteine and Metamizole may falselydepress this assay. Reference Range HDL <40 mg/dL Low HDL Cholesterol HDL >or= 60 mg/dL High HDL Cholesterol Performed By: #### L 100.0500, L500.4100, L500.4050 ####[facility] [address] [place], [address] Cholesterol in LDL [Mass/Vol] 71 mg/dL Normal 0-130 [facility] Comment on above: Order Comment: 109-1 Performed By: #### L 100.0500, L500.4100, L500.4050 ####[facility] [address] [place], [address] Cholesterol in VLDL [Mass/Vol] 24 mg/dL Normal 5-40 [facility] Comment on above: Order Comment: 109-1 Performed By: #### L 100.0500, L500.4100, L500.4050 ####[facility] [address] [place], [address] Triglyceride [Mass/Vol] 119 mg/dL Normal [facility] Comment on above: Order Comment: 109-1 Result Comment: The drugs N-Acetylcysteine and Metamizole may falselydepress this assay.Serum Triglycerides Reference Interval Normal <150 mg/dL Borderline high 150 - 199 mg/dL High 200 - 499 mg/dL Very High > or = 500 mg/dL Performed By: #### L 100.0500, L500.4100, L500.4050 ####[facility] [address] [place], [address] Progress Noteon 11-22-2023 Progress Note Speech-Language Pathology SPEECH LANGUAGE PATHOLOGY [facility] '[facility] Modified Barium Swallow Study Patient [...] despite effort. 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 Frequency: Per treating LODGE ATTENDANT Barriers: large osteophytes, bridging with anterior projection [...] MBSS?: No, unable to locate in [facility] Current Diet: Puree diet with ?liquid (no information from [place]) Textures tested: - thin liquid, (cup edge) - mildly thick liquid, (cup edge) - puree, (teaspoon) Patient position: lateral Past Medical History: Past Medical History: Diagnosis Date TREVER (acute kidney injury) ([facility]) ([facility]) Alcohol abuse 07/08/2018 Anxiety C1 spinal cord injury ([facility]) ([facility]) Depression Fall 06/2018 Schizophrenia ([facility]) Past Surgical History: Past Surgical History: Procedure Laterality Date CERVICAL FUSION 07/09/2014 C2-6 cervical fusion GASTROSTOMY TUBE PLACEMENT 07/13/2018 TRACHEOSTOMY 07/13/2018 Admission Diagnosis: Patient Active Problem List Diagnosis Date Noted Respiratory syncytial virus (RSV) 03/22/2021 Hypoxia 03/19/2021 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[facility]) ([facility]) 08/16/2018 Chronic latent schizophrenia ([facility]) 08/15/2018 Prolonged Q-T interval on ECG 08/15/2018 Abdominal wall abscess 08/15/2018 Central cord syndrome ([facility]) ([facility]) 08/15/2018 Respiratory failure after trauma ([facility]) 08/15/2018 Pressure ulcer of sacral region, stage 2 ([facility]) 08/09/2018 Urinary retention 07/28/2018 Acute respiratory failure with hypoxia ([facility]) 07/26/2018 Mild bibasilar atelectasis 07/26/2018 Hospital-acquired pneumonia 07/26/2018 Bilateral pleural effusion 07/26/2018 Ileus (CMS/HCC) ([facility]) 07/23/2018 TREVER (acute kidney injury) ([facility]) 07/23/2018 Hypokalemia 07/21/2018 Vertebral artery occlusion, bilateral 07/11/2018 Vitamin D insufficiency 07/10/2018 Alcohol abuse 07/08/2018 Closed wedge compression fracture of first thoracic vertebra ([facility]) 07/08/2018 Traumatic nondisp spondylolisthesis of C3 vertebra with closed fx, initial encounter ([facility]) 07/08/2018 Closed fracture dislocation of cervical spine ([facility]) 07/08/2018 Pain: Pt denies any current pain. Reason for current admission: Pt with h/o of PEG and trach from 2019. Pt is currently decannulated. 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 Noted very large connective [...] posterior spill (more content not included)... Normal [facility] RF videography Hypopharynx a nd Esophagus Views for swallowing function W speech and W barium contrast Rosalino 11-22-2023 Abnormal findings as described above. Please refer to the speech pathologist 's report for additional details and recommendations. Report Dictated on Electronically Signed By: Nir Cancino MD Electronically Signed Date/Time: 11/22/2023 1:57 PM T [facility] Patient Name: [...] visualized in this exam for evaluation. [facility] Nir Cancino MD - 11/22/2023 [...] Electronically Signed Date/Time: 11/22/2023 1:57 PM EDT [facility] Radiology Study observation (narrative) [facility] videography Hypopharynx a nd Esophagus Views for swallowing function W speech and W barium contrast POOrdered By: Nir Cancino on 11-22-2023 [facility] Work Phone: CBC W Auto Differential pane l (Bld)on 10-02-2023 Basophils (Bld) [#/Vol] 0.0 10*3/uL 0.0 - 0.2 10*3/uL [facility] Basophils/100 WBC (Bld) 0.3 % 0.0 - 2.0 % [facility] Eosinophils (Bld) [#/Vol] 0.0 10*3/uL 0.0 - 0.5 10*3/uL [facility] Eosinophils/100 WBC (Bld) 0.0 % 0.0 - 6.0 % [facility] Erythrocyte distribution width (RBC) [Ratio] 13.0 % 11.5 - 15.0 % [facility] Hematocrit (Bld) [Volume fraction] 37.8 % Low 40.0 - 52.0 % [facility] Hemoglobin (Bld) [Mass/Vol] 13.0 g/dL 13.0 - 18.0 g/dL [facility] Immature granulocytes (Bld) [#/Vol] 0.1 10*3/uL High NINF - 0.1 10*3/uL [facility] Immature granulocytes/100 WBC (Bld) 0.5 % 0.0 - 2.0 % [facility] Interpretation and review of laboratory results Abnormal [facility] Lymphocytes (Bld) [#/Vol] 0.9 10*3/uL Low 1.0 - 4.3 10*3/uL [facility] Lymphocytes/100 WBC (Bld) 8.4 % Low 15.0 - 45.0 % [facility] MCH (RBC) [Entitic mass] 30.3 pg 26.0 - 34.0 pg [facility] MCHC (RBC) [Mass/Vol] 34.4 % 30.5 - 36.0 % [facility] MCV (RBC) [Entitic vol] 88.1 fL 77.0 - 99.0 fL [facility] Monocytes (Bld) [#/Vol] 0.9 10*3/uL 0.0 - 0.9 10*3/uL [facility] Monocytes/100 WBC (Bld) 8.2 % 5.0 - 13.0 % [facility] Neutrophils (Bld) [#/Vol] 8.9 10*3/uL High 1.8 - 7.5 10*3/uL [facility] Neutrophils/100 WBC (Bld) 82.6 % High 38.0 - 82.0 % [facility] Nucleated RBC/100 WBC (Bld) [Ratio] 0.0 % [facility] Platelet mean volume (Bld) [Entitic vol] 10.7 fL 9.0 - 12.7 fL [facility] Platelets (Bld) [#/Vol] 148 10*3/uL 140 - 440 10*3/uL [facility] RBC (Bld) [#/Vol] 4.29 10*6/uL Low 4.40 - 5.9 0 10*6/uL [facility] WBC (Bld) [#/Vol] 10.7 10*3/uL 3.6 - 10.7 10*3/uL [facility] CBC WITH AUTO DIFFERENTIALon 10-02-2023 Basophils (Bld) [#/Vol] 0.0 10*3/uL Normal 0.0-0.2 [facility] Comment on above: Performed By: #### L [id number] #### Gift Manager: CYNDI LILLY ([phone]) [facility]EN ([facility] [address] [place] [address] Basophils/100 WBC (Bld) 0.3 % Normal 0.0-2.0 [facility] Comment on above: Performed By: #### L [id number] #### Gift Manager: CYNDI [phone]) [facility] ([facility]) [address] Eosinophils (Bld) [#/Vol] 0.0 10*3/uL Normal 0.0-0.5 [facility] Comment on above: Performed By: #### L [id number] #### Gift Manager: CYNDI LILLY ([phone]) [facility] [address] Eosinophils/100 WBC (Bld) 0.0 % Normal 0.0-6.0 [facility] Comment on above: Performed By: #### L [id number] #### Gift Manager: CYNDI LILLY ([phone]) [facility] ([facility]) [address] Erythrocyte distribution width (RBC) [Ratio] 13.0 % Normal 11.5-15.0 [facility] Comment on above: Performed By: #### L [id number] #### Gift Manager: CYNDI LILLY ([phone]) [facility] ([facility] [address] Hematocrit (Bld) [Volume fraction] 37.8 % Low 40.0-52.0 [facility] Comment on above: Performed By: #### L [id number] #### Gift Manager: CYNDI LILLY ([phone]) [facility] ([facility] [address] Hemoglobin (Bld) [Mass/Vol] 13.0 g/dL Normal 13.0-18.0 [facility] Comment on above: Performed By: #### L [id number] #### Gift Manager: CYNDI LILLY ([phone]) [facility] ([facility] [address] IMMATURE GRANS % 0.5 % Normal 0.0-2.0 [facility] Comment on above: Performed By: #### L [id number] #### Gift Manager: CYNDI LILLY ([phone]) [facility] ([facility]) [address] IMMATURE GRANS ABSOLUTE 0.1 10*3/uL High <0.1 [facility] Comment on above: Performed By: #### L [id number] #### Gift Manager: CYNDI LILLY ([phone]) [facility] ([facility]) [address] Lymphocytes (Bld) [#/Vol] 0.9 10*3/uL Low 1.0-4.3 [facility] Comment on above: Performed By: #### L [id number] #### Gift Manager: CYNDI LILLY ([phone]) [facility] ([facility] [address] Lymphocytes/100 WBC (Bld) 8.4 % Low 15.0-45.0 [facility] Comment on above: Performed By: #### L [id number] #### Gift Manager: CYNDI LILLY ([phone]) [facility] ([facility]) [address] MCH (RBC) [Entitic mass] 30.3 pg Normal 26.0-34.0 [facility] Comment on above: Performed By: #### L [id number] #### Gift Manager: CYNDI LILLY ([phone]) [facility] ([facility] [address] MCHC 34.4 % Normal 30.5-36.0 [facility] Comment on above: Performed By: #### L [id number] #### Gift Manager: CYNDI LILLY ([phone]) [facility] ([facility]) [address] MCV (RBC) [Entitic vol] 88.1 fL Normal 77.0-99.0 [facility] Comment on above: Performed By: #### L [id number] #### Gift Manager: CYNDI LILLY ([phone]) [facility] [place] ([facility]) [address] Monocytes (Bld) [#/Vol] 0.9 10*3/uL Normal 0.0-0.9 [facility] Comment on above: Performed By: #### L [id number] #### Gift Manager: CYNDI LILLY ([phone]) [facility] ([facility]) [address] [place] [address] [place] Monocytes/100 WBC (Bld) 8.2 % Normal 5.0-13.0 [facility] Comment on above: Performed By: #### L [id number] #### Gift Manager: CYNDI LILLY ([phone]) [facility] ([facility]) [address] NEUTROPHILS ABSOLUTE 8.9 10*3/uL High 1.8-7.5 [facility] Comment on above: Performed By: #### L [id number] #### Gift Manager: CYNDI LILLY ([phone]) [facility] [place] ([facility] [address] Neutrophils/100 WBC (Bld) 82.6 % High 38.0-82.0 [facility] Comment on above: Performed By: #### L [id number] #### Gift Manager: CYNDI LILLY ([phone]) [facility] ([facility]) [address] NRBC 0.0 /100 WBCs Normal 0.0-2.0 [facility] Comment on above: Performed By: #### L [id number] #### Gift Manager: CYNDI LILLY ([phone]) [facility] [place] ([facility]) [address] [place] [address] [place] Platelet mean volume (Bld) [Entitic vol] 10.7 fL Normal 9.0-12.7 [facility] Comment on above: Performed By: #### L [id number] #### Gift Manager: CYNDI LILLY ([phone]) [facility] ([facility]) [address] Platelets (Bld) [#/Vol] 148 10*3/uL Normal 140-440 [facility] Comment on above: Performed By: #### L [id number] #### Gift Manager: CYNDI LILLY ([phone]) [facility] ([facility]) [address] RBC (Bld) [#/Vol] 4.29 10*6/uL Low 4.40-5.90 [facility] Comment on above: Performed By: #### L [id number] #### Gift Manager: CYNDI LILLY ([phone]) [facility] ([facility]) [address] WBC (Bld) [#/Vol] 10.7 10*3/uL Normal 3.6-10.7 [facility] Comment on above: Performed By: #### Alban [id number] #### Gift Manager: CYNDI LILLY ([phone]) [facility] ([facility]) [address] COMPREHENSIVE METABOLIC PANE Reji 10-02-2023 Albumin [Mass/Vol] 3.7 g/dL Normal 3.5-5.0 [facility] Comment on above: Performed By: #### L AB17, [id number] ####Gift Manager: CYNDI LILLY ([phone])[facility] [place] ([facility])[address] ALP [Catalytic activity/Vol] 78 U/L Normal 38-126 [facility] Comment on above: Performed By: #### L AB17, [id number] ####Gift Manager: CYNDI LILLY ([phone])[facility] ([facility])[address] ALT [Catalytic activity/Vol] 21 U/L Normal 0-49 [facility] Comment on above: Performed By: #### L AB17, [id number] ####Gift Manager: CYNDI LILLY ([phone])[facility] [place] ([facility])[address] Anion gap [Moles/Vol] 10 mmol/L Normal 3-13 [facility] Comment on above: Performed By: #### L AB17, [id number] ####Gift Manager: CYNDI LILLY ([phone])[facility] ([facility])[address] [place] [address] [place] AST [Catalytic activity/Vol] 29 U/L Normal 15-46 [facility] Comment on above: Performed By: #### L AB17, [id number] ####Gift Manager: CYNDI LILLY ([phone])[facility] ([facility])[address] Bilirubin [Mass/Vol] 1.1 mg/dL Normal 0.2-1.3 [facility] Comment on above: Performed By: #### Alban AB17, [id number] ####Gift Manager: CYNDI LILLY ([phone])[facility] ([facility])[address] Calcium [Mass/Vol] 7.8 mg/dL Low 8.4-10.4 [facility] Comment on above: Performed By: #### L AB17, [id number] ####Gift Manager: CYNDI LILLY ([phone])[facility] ([facility])[address] [place] [address] [place] Chloride [Moles/Vol] 102 mmol/L Normal 98-107 [facility] Comment on above: Performed By: #### L AB17, [id number] ####Gift Manager: CYNDI LILLY ([phone])[facility] [place] ([facility])[address] [place] [address] [place] CO2 [Moles/Vol] 23 mmol/L Normal 22-30 [facility] Comment on above: Performed By: #### L AB17, [id number] ####Gift Manager: CYNDI LILLY ([phone])[facility] [place] ([facility])[address] Creatinine [Mass/Vol] 0.58 mg/dL Low 0.66-1.25 [facility] Comment on above: Performed By: #### Alban AB17, [id number] ####Gift Manager: CYNDI LILLY ([phone])[facility] ([facility])[address] GLOMERULAR FILTRATION RATE ML/MIN/1.73 SQ M.PREDICTED >90.0 Normal >60.0 [facility] Comment on above: Result Comment: Calc ulation based on the Chronic Kidney Disease Epidemiology Collaboration (CKD-EPI) equation refit without adjustment for race Performed By: #### L 17, [id number] ####Gift Manager: CYNDI LILLY ([phone])[facility] ([facility])[address] Glucose [Mass/Vol] 111 mg/dL High 70-100 [facility] Comment on above: Performed By: #### L AB17, [id number] ####Gift Manager: CYNDI LILLY ([phone])[facility] ([facility])[address] Potassium [Moles/Vol] 4.0 mmol/L Normal 3.5-5.1 [facility] Comment on above: Performed By: #### Alban YEH17, [id number] ####Gift Manager: CYNDI LILLY ([phone])[facility] [place] ([facility])[address] [place] [address] [place] Protein [Mass/Vol] 6.5 g/dL Normal 6.3-8.2 [facility] Comment on above: Performed By: #### L AB17, [id number] ####Gift Manager: CYNDI LILLY ([phone])[facility] ([facility])[address] [place] [address] [place] Sodium [Moles/Vol] 135 mmol/L Normal 135-145 [facility] Comment on above: Performed By: #### L AB17, [id number] ####Gift Manager: CYNDI LILLY ([phone])[facility] ([facility])[address] Urea nitrogen [Mass/Vol] 18 mg/dL Normal 9-20 [facility] Comment on above: Performed By: #### L AB17, [id number] ####Gift Manager: CYNDI LILLY ([phone])[facility] ([facility])[address] HEAD WO IV CONTRASTon CT HEAD WO IV CONTRAST Patient Name: KATHYA YU : 1955 Exam Date/Time: 10/02/2023 11:03 Procedure: CT HEAD WO IV CONTRAST Ordering Provider: TOLEDO AMY Reason For Exam: Neuro deficit, acute, stroke suspected EXAMINATION: CT HEAD WO IV CONTRAST HISTORY: Neuro deficit, acute, stroke suspected - - - - - [id number] - - - - TECHNIQUE: CT head [...] has seen him for that day, shift nurse manager did not report any problems. EMS [...] has no complaints at this time. Normal [facility] CT Head WO contraston [address] evidence of an acute intracranial abnormality. Report Dictated on Electronically Signed By: Maria Eugenia Ruiz MD Electronically Signed Date/Time: 10/02/2023 11:09 AM [facility] Patient Name: KATHYA HOOPER DOB: 1955 Exam Date/Time: 10/02/2023 11:03 Procedure: CT HEAD WO IV CONTRAST Ordering Provider: TOLEDO AMY Reason For Exam: Neuro deficit, acute, stroke suspected EXAMINATION: CT HEAD WO IV CONTRAST HISTORY: Neuro deficit, acute, stroke suspected - - - - - [id number] - - - - TECHNIQUE: CT head [...] cells and the left sphenoid sinus [facility] Maria Eugenia Ruiz MD - 10/02/2023 Patient Name: KATHYA HOOPER DOB: 1955 Exam Date/Time: 10/02/2023 11:03 Procedure: CT HEAD WO IV CONTRAST Ordering Provider: TOLEDO AMY Reason For Exam: Neuro deficit, acute, stroke suspected EXAMINATION: CT HEAD WO IV CONTRAST HISTORY: Neuro deficit, acute, stroke suspected - - - - - [id number] - - - - TECHNIQUE: CT head [...] Electronically Signed Date/Time: 10/02/2023 11:[address] [facility] Radiology Study observation (narrative) [facility] CT Head WO contrastOrdered B y: Maria Eugenia Ruiz on 10-02-2023 [facility] Work Phone: Comprehensive metabolic 1998 panelon 10-02-2023 Albumin [Mass/Vol] 3.7 g/dL 3.5 - 5.0 g/dL [facility] ALP [Catalytic activity/Vol] 78 U/L 38 - 126 U/L [facility] ALT [Catalytic activity/Vol] 21 U/L 0 - 49 U/L [facility] Anion gap [Moles/Vol] 10 mmol/L 3 - 13 mmol/L [facility] AST [Catalytic activity/Vol] 29 U/L 15 - 46 U/L [facility] Bilirubin [Mass/Vol] 1.1 mg/dL 0.2 - 1 .3 mg/dL [facility] Calcium [Mass/Vol] 7.8 mg/dL Low 8.4 - 10. 4 mg/dL [facility] Chloride [Moles/Vol] 102 mmol/L 98 - 10 7 mmol/L [facility] CO2 [Moles/Vol] 23 mmol/L 22 - 30 mmol/L [facility] Creatinine [Mass/Vol] 0.58 mg/dL Low 0.66 - 1.25 mg/dL [facility] GFR/1.73 sq M.predicted MDRD (S/P/Bld) [Vol rate/Area] - PINF [facility] Comment on above: Calculation based on the Chronic Kidney Disease Epidemiology Collaboration (CKD-EPI) equation refit without adjustment for race Glucose [Mass/Vol] 111 mg/dL High 70 - 100 mg/dL [facility] Interpretation and review of laboratory results Abnormal [facility] Potassium [Moles/Vol] 4.0 mmol/L 3.5 - 5.1 mmol/L [facility] Protein [Mass/Vol] 6.5 g/dL 6.3 - 8.2 g/dL [facility] Sodium [Moles/Vol] 135 mmol/L 135 - 145 mmol/L [facility] Urea nitrogen [Mass/Vol] 18 mg/dL 9 - 20 mg/dL [facility] ECG 12-LEADon 10-02-2023 ECG 12-LEAD IMPRESSION: Sinus tachycardia Left bundle branch block ST elevation secondary to IVCD Electronically Signed On 10-02-2023 12:40:15 EDT by Fei Farooq [facility] ED Nursing Noteon 10-02-2023 ED Nursing Note [facility] at bedside at this time Mami Lantigua RN 10/02/23 1427 [facility] ED Nursing Note This RN gave report to Marnie at [facility] at this time Mami Lantigua RN 10/02/23 1358 [facility] ED Nursing Note This RN went to evaluate patient, was on 2L o2 and does not wear at baseline, plan is dc, this RN turned o2 off to trial patient, spo2 monitor on Mami Lantigua RN 10/02/23 1325 [facility] ED Nursing Note Pt to ct via cart Eloisa Alfaro RN 10/02/23 1043 [facility] ED Nursing Note Pt was [place] [facility] [place] [facility] for Left sided facial droop. Per EMS nurse is new and does not know patient very well but he is A&O x 2 at baseline. Per EMS the nurse states it was 20 mins ago. Contacted nurse that was caring for him and she states that was the first time she has seen him for that day, shift nurse manager did not report any problems. EMS [...] facility. Hx of schizophrenia. BS 131. Normal [facility] ED Provider Noteon ED Provider Note [facility] ED eMERGENCY dEPARTMENT eNCOUnter Pt [...] History: Diagnosis Date TREVER (acute kidney injury) ([facility] ([facility]) Alcohol abuse 07/08/2018 Anxiety C1 spinal cord injury ([facility]) ([facility]) Depression Fall 06/2018 Schizophrenia ([facility]) SURGICALHISTORY Past Surgical History: Procedure Laterality Date [...] EmergencyPhysician): Interpret (more content not included)... [facility] ED Provider Note Emergency Department Encounter [facility] ED Patient: Kathya Hooper : [...] Solutions Fei Farooq MD 10/02/23 1129 [facility] Laboratory - Chemistry and C hemistry - challengeon 10-02-2023 Troponin I.cardiac [Mass/Vol] ng/mL NINF - 0.034 ng/mL [facility] Laboratory - Coagulationon 0 10-02-2023 aPTT Coag (PPP) [Time] 29.6 s 20.0 - 30.5 s [facility] INR Coag (PPP) [Relative time] 1.1 {INR} 0.9 - 1.1 [facility] Comment on above: Recommended Anticoag [...] [Time] 11.6 s 9.0 - 12.0 s [facility] No Panel Informationon 10-01 Heart Rate 103 bpm [facility] P [place] 48 degrees [facility] [place] Interval 172 ms [facility] QRS [place] -38 degrees [facility] QRSD Interval [address] [facility] QT Interval 405 ms [facility] QTC Interval 532 ms [facility] T Wave [place] 109 degrees [facility] Sinus tachycardia Left bundle branch block ST elevation secondary to IVCD Electronically Signed On 10-02-2023 12:40:15 EDT by Fei Farooq CV Fei Lopez MD - 10/02/2023 IMPRESSION: Sinus tachycardia Left bundle branch block ST elevation secondary to IVCD Electronically Signed On 10-02-2023 12:40:15 EDT by Fei Farooq [facility] Interpretation and review of laboratory results Normal [facility] PROTIME AND APTTon aPTT Coag (Bld) [Time] 29.6 s Normal 20.0-30.5 [facility] Comment on above: Performed By: #### L [id number] ####Gift Manager: CYNDI LILLY ([id number])[facility] ([facility])[address] [place] [address] INR Coag (PPP) [Relative time] 1.1 {INR} Normal 0.9-1.1 [facility] Comment [...] prevent Myocardial Infarction Performed By: #### L [id number] ####Gift Manager: CYNDI LILLY ([id number])[facility] ([facility])[address] [place] [address] PT Coag (PPP) [Time] 11.6 s Normal 9.0-12.0 [facility] Comment on above: Performed By: #### L [id number] ####Gift Manager: CYNDI LILLY ([id number])[facility] ([facility])[address] [place] [address] TROPONIN, WITH SERIAL REFLEX on 10-02-2023 Troponin I.cardiac [Mass/Vol] ng/mL Normal <0.034 [facility] Comment on above: Result Comment: SHARON Stevens COMMENTS: Patients with high levels of Biotin oral intake (ie >5 mg/day) may have falsely decreased Troponin levels. Performed By: #### L [id number], [id number] ####Gift Manager: CYNDI LILLY ([id number])[facility] ([facility])[address] [place] [address] Troponin I.cardiac [Mass/Vol ]on 10-02-2023 Interpretation and review of laboratory results Normal [facility] Patients with high levels of Biotin oral intake (ie >5 mg/day) may have falsely decreased Troponin levels. [facility] XR Chest Single viewon 10-01 No acute cardiopulmonary disease. Report Dictated on Electronically Signed By: Maria Eugenia Ruiz MD Electronically Signed Date/Time: 10/02/2023 11:06 AM [facility] Patient Name: KATHYA HOOPER : [...] and shoulders. No acute osseous findings. [facility] Maria Eugenia Ruiz MD - 10/02/2023 [facility] 1955 [id number] Exam Date/Time: 10/02/2023 11:11 Procedure: XR CHEST [...] Electronically Signed Date/Time: 10/02/2023 11:06 AM EDT [facility] Radiology Study observation (narrative) [facility] Absolute lymphocyte countOrd ered By: Renard Burgos on 08-07-2023 Lymphocytes Auto (Unsp spec) [#/Vol] 2.23 10*3/uL 0.83-4.51 [facility] Automated lymphocyte count a s percentage of total leukocytesOrdered By: Renard Burgos on 08-07-2023 Lymphocytes/100 WBC Auto (Unsp spec) 23.9 % 19-41 [facility] Basophil percentageOrdered B y: Renard Burgos on 08-07-2023 Basophils/100 WBC (Bld) 0.4 % 0-1 [facility] Eosinophils/100 WBC (Bld) 0.4 % 0-5 [facility] Hemoglobin (Bld) [Mass/Vol] 13.9 g/dL 13.0-16.5 [facility] Monocytes/100 WBC (Bld) 8.0 % 0-10 [facility] Neutrophils (Bld) [#/Vol] 6.2 10*3/uL 2.0-7.7 [facility] Neutrophils/100 WBC (Bld) 66.9 % 47-70 [facility] WBC (Bld) [#/Vol] 9.3 10*3/uL 4.4-11.0 [facility] Determination of erythrocyte mean corpuscular volume (MCV)Ordered By: Renard Burgos on 08-07-2023 MCV (RBC) [Entitic vol] 90.0 fL 80-94 [facility] Erythrocyte distribution wid th ratioOrdered By: Renard Burgos on 08-07-2023 Erythrocyte distribution width (RBC) [Ratio] 13.0 % 11.6-14.6 [facility] Erythrocyte distribution wid th standard deviationOrdered By: Renard Burgos on 08-07-2023 Erythrocyte distribution width (RBC) [Entitic vol] 42.5 fL 35.1-43.9 [facility] Hematocrit Auto (Bld) [Volum e fraction]Ordered By: Renard Burgos on 08-07-2023 Hematocrit (Bld) [Volume fraction] 42.5 % 40-54 [facility] Immature granulocytes/100 WB C Auto (Bld)Ordered By: Renard Burgos on 08-07-2023 Immature granulocytes/100 WBC (Bld) 0.400 % 0.0-0.9 [facility] Comment on above: IG% - Immature Granu locytes (promyelocytes, myelocytes and metamyelocytes) > 1% indicates that a LEFT SHIFT is Present. Laboratory - Hematology and Cell countsOrdered By: Renard Burgos on 08-07-2023 MCH (RBC) [Entitic mass] 29.4 pg 27.0-32.0 [facility] MCHC (RBC) [Mass/Vol] 32.7 g/dL 32-36 [facility] Nucleated RBC/100 WBC (Bld) [Ratio] 0 % 0-5 [facility] Platelet mean volume (Bld) [Entitic vol] 10.7 fL 6.2-12.0 [facility] Platelets (Bld) [#/Vol] 210 10*3/uL 150-450 [facility] RBC Auto (Bld) [#/Vol]Ordere d By: Renard Burgos on 08-07-2023 RBC (Bld) [#/Vol] 4.72 10*6/uL 4.6-6.2 [facility] Absolute lymphocyte countOrd ered By: Renard Burgos on 07-31-2023 Lymphocytes Auto (Unsp spec) [#/Vol] 2.04 10*3/uL 0.83-4.51 [facility] Automated lymphocyte count a s percentage of total leukocytesOrdered By: Renard Burgos on 07-31-2023 Lymphocytes/100 WBC Auto (Unsp spec) 24.2 % 19-41 [facility] Basophil percentageOrdered B y: Renard Burgos on 07-31-2023 Basophils/100 WBC (Bld) 0.6 % 0-1 [facility] Eosinophils/100 WBC (Bld) 0.6 % 0-5 [facility] Hemoglobin (Bld) [Mass/Vol] 13.9 g/dL 13.0-16.5 [facility] Monocytes/100 WBC (Bld) 8.5 % 0-10 [facility] Neutrophils (Bld) [#/Vol] 5.5 10*3/uL 2.0-7.7 [facility] Neutrophils/100 WBC (Bld) 65.7 % 47-70 [facility] WBC (Bld) [#/Vol] 8.4 10*3/uL 4.4-11.0 [facility] Determination of erythrocyte mean corpuscular volume (MCV)Ordered By: Renard Burgos on 07-31-2023 MCV (RBC) [Entitic vol] 89.7 fL 80-94 [facility] Erythrocyte distribution wid th ratioOrdered By: Renard Burgos on 07-31-2023 Erythrocyte distribution width (RBC) [Ratio] 12.8 % 11.6-14.6 [facility] Erythrocyte distribution wid th standard deviationOrdered By: Renard Burgos on 07-31-2023 Erythrocyte distribution width (RBC) [Entitic vol] 42.2 fL 35.1-43.9 [facility] Hematocrit Auto (Bld) [Volum e fraction]Ordered By: Renard Burgos on 07-31-2023 Hematocrit (Bld) [Volume fraction] 41.7 % 40-54 [facility] Immature granulocytes/100 WB C Auto (Bld)Ordered By: Renard Burgos on 07-31-2023 Immature granulocytes/100 WBC (Bld) 0.400 % 0.0-0.9 [facility] Comment on above: IG% - Immature Granu locytes (promyelocytes, myelocytes and metamyelocytes) > 1% indicates that a LEFT SHIFT is Present. Laboratory - Hematology and Cell countsOrdered By: Renard Burgos on 07-31-2023 MCH (RBC) [Entitic mass] 29.9 pg 27.0-32.0 [facility] MCHC (RBC) [Mass/Vol] 33.3 g/dL 32-36 [facility] Nucleated RBC/100 WBC (Bld) [Ratio] 0 % 0-5 [facility] Platelet mean volume (Bld) [Entitic vol] 10.6 fL 6.2-12.0 [facility] Platelets (Bld) [#/Vol] 201 10*3/uL 150-450 [facility] RBC Auto (Bld) [#/Vol]Ordere d By: Renard Burgos on 07-31-2023 RBC (Bld) [#/Vol] 4.65 10*6/uL 4.6-6.2 [facility] Absolute lymphocyte countOrd ered By: Renard Burgos on 07-24-2023 Lymphocytes Auto (Unsp spec) [#/Vol] 2.00 10*3/uL 0.83-4.51 [facility] Automated lymphocyte count a s percentage of total leukocytesOrdered By: Renard Burgos on 07-24-2023 Lymphocytes/100 WBC Auto (Unsp spec) 26.2 % 19-41 [facility] Basophil percentageOrdered B y: Renard Burgos on 07-24-2023 Basophils/100 WBC (Bld) 0.7 % 0-1 [facility] Eosinophils/100 WBC (Bld) 0.7 % 0-5 [facility] Hemoglobin (Bld) [Mass/Vol] 14.2 g/dL 13.0-16.5 [facility] Monocytes/100 WBC (Bld) 6.4 % 0-10 [facility] Neutrophils (Bld) [#/Vol] 5.0 10*3/uL 2.0-7.7 [facility] Neutrophils/100 WBC (Bld) 65.6 % 47-70 [facility] WBC (Bld) [#/Vol] 7.6 10*3/uL 4.4-11.0 [facility] Determination of erythrocyte mean corpuscular volume (MCV)Ordered By: Renard Burgos on 07-24-2023 MCV (RBC) [Entitic vol] 89.8 fL 80-94 [facility] Erythrocyte distribution wid th ratioOrdered By: Renard Burgos on 07-24-2023 Erythrocyte distribution width (RBC) [Ratio] 12.8 % 11.6-14.6 [facility] Erythrocyte distribution wid th standard deviationOrdered By: Renard Burgos on 07-24-2023 Erythrocyte distribution width (RBC) [Entitic vol] 42.0 fL 35.1-43.9 [facility] Hematocrit Auto (Bld) [Volum e fraction]Ordered By: Renard Burgos on 07-24-2023 Hematocrit (Bld) [Volume fraction] 43.3 % 40-54 [facility] Immature granulocytes/100 WB C Auto (Bld)Ordered By: Renard Burgos on 07-24-2023 Immature granulocytes/100 WBC (Bld) 0.400 % 0.0-0.9 [facility] Comment on above: IG% - Immature Granu locytes (promyelocytes, myelocytes and metamyelocytes) > 1% indicates that a LEFT SHIFT is Present. Laboratory - Hematology and Cell countsOrdered By: Renard Burgos on 07-24-2023 MCH (RBC) [Entitic mass] 29.5 pg 27.0-32.0 [facility] MCHC (RBC) [Mass/Vol] 32.8 g/dL 32-36 [facility] Nucleated RBC/100 WBC (Bld) [Ratio] 0 % 0-5 [facility] Platelet mean volume (Bld) [Entitic vol] 11.0 fL 6.2-12.0 [facility] Platelets (Bld) [#/Vol] 215 10*3/uL 150-450 [facility] RBC Auto (Bld) [#/Vol]Ordere d By: Renard Burgos on 07-24-2023 RBC (Bld) [#/Vol] 4.82 10*6/uL 4.6-6.2 [facility] Absolute lymphocyte countOrd ered By: Renard Burgos on 07-17-2023 Lymphocytes Auto (Unsp spec) [#/Vol] 2.22 10*3/uL 0.83-4.51 [facility] Automated lymphocyte count a s percentage of total leukocytesOrdered By: Renard Burgos on 07-17-2023 Lymphocytes/100 WBC Auto (Unsp spec) 25.4 % 19-41 [facility] Basophil percentageOrdered B y: Renard Burgos on 07-17-2023 Basophils/100 WBC (Bld) 0.5 % 0-1 [facility] Cholesterol [Mass/Vol] 126 mg/dL <200 [facility] Comment on above: <200 mg/dL Desirable 200-240 mg/dL Borderline >240 mg/dL High Risk Eosinophils/100 WBC (Bld) 0.6 % 0-5 [facility] Hemoglobin (Bld) [Mass/Vol] 14.0 g/dL 13.0-16.5 [facility] Monocytes/100 WBC (Bld) 6.6 % 0-10 [facility] Neutrophils (Bld) [#/Vol] 5.8 10*3/uL 2.0-7.7 [facility] Neutrophils/100 WBC (Bld) 66.4 % 47-70 [facility] Triglyceride [Mass/Vol] 176 mg/dL <199 [facility] Comment on above: The drugs N-Acetylcy steine and Metamizole may falsely depress this assay.Serum Triglycerides Reference Interval Normal <150 mg/dL Borderline high 150 - 199 mg/dL High 200 - 499 mg/dL Very High > or = 500 mg/dL WBC (Bld) [#/Vol] 8.7 10*3/uL 4.4-11.0 [facility] Determination of erythrocyte mean corpuscular volume (MCV)Ordered By: Renard Burgos on 07-17-2023 MCV (RBC) [Entitic vol] 90.5 fL 80-94 [facility] Erythrocyte distribution wid th ratioOrdered By: Renard Burgos on 07-17-2023 Erythrocyte distribution width (RBC) [Ratio] 12.4 % 11.6-14.6 [facility] Erythrocyte distribution wid th standard deviationOrdered By: Renard Burgos on 07-17-2023 Erythrocyte distribution width (RBC) [Entitic vol] 41.1 fL 35.1-43.9 [facility] Hematocrit Auto (Bld) [Volum e fraction]Ordered By: Renard Burgos on 07-17-2023 Hematocrit (Bld) [Volume fraction] 42.8 % 40-54 [facility] Immature granulocytes/100 WB C Auto (Bld)Ordered By: Renard Burgos on 07-17-2023 Immature granulocytes/100 WBC (Bld) 0.500 % 0.0-0.9 [facility] Comment on above: IG% - Immature Granu locytes (promyelocytes, myelocytes and metamyelocytes) > 1% indicates that a LEFT SHIFT is Present. Laboratory - Chemistry and C hemistry - challengeOrdered By: Renard Burgos on 07-17-2023 Cholesterol in HDL [Mass/Vol] 28 mg/dL >40 [facility] Comment on above: The drugs N-Acetylcy steine and Metamizole may falsely depress this assay. Reference Range HDL <40 mg/dL Low HDL Cholesterol HDL >or= 60 mg/dL High HDL Cholesterol Cholesterol in LDL [Mass/Vol] 63 mg/dL 0-130 [facility] Laboratory - Hematology and Cell countsOrdered By: Renard Burgos on 07-17-2023 MCH (RBC) [Entitic mass] 29.6 pg 27.0-32.0 [facility] MCHC (RBC) [Mass/Vol] 32.7 g/dL 32-36 [facility] Nucleated RBC/100 WBC (Bld) [Ratio] 0 % 0-5 [facility] Platelet mean volume (Bld) [Entitic vol] 10.9 fL 6.2-12.0 [facility] Platelets (Bld) [#/Vol] 193 10*3/uL 150-450 [facility] No Panel InformationOrdered By: Renard Burgos on 07-17-2023 Vitamin D 25-Hydroxy 33.1 ng/mL [facility] Comment on above: Vitamin D 25(OH) Sta tus Range Deficiency <20 ng/mL (50nmol/L) Insufficiency 20 - 30 ng/mL (50 - 75 nmol/L) Sufficiency 30 - 100 ng/mL (75 - 250 nmol/L) Toxicity >100 ng/mL (>250 nmol/L) VLDL Cholesterol 35 mg/dL 5-40 [facility] RBC Auto (Bld) [#/Vol]Ordere d By: Renard Burgos on 07-17-2023 RBC (Bld) [#/Vol] 4.73 10*6/uL 4.6-6.2 [facility] Absolute lymphocyte countOrd ered By: Renard Burgos on 07-10-2023 Lymphocytes Auto (Unsp spec) [#/Vol] 2.14 10*3/uL 0.83-4.51 [facility] Automated lymphocyte count a s percentage of total leukocytesOrdered By: Renard Burgos on 07-10-2023 Lymphocytes/100 WBC Auto (Unsp spec) 24.7 % 19-41 [facility] Basophil percentageOrdered B y: Renard Burgos on 07-10-2023 Basophils/100 WBC (Bld) 0.3 % 0-1 [facility] Eosinophils/100 WBC (Bld) 0.3 % 0-5 [facility] Hemoglobin (Bld) [Mass/Vol] 13.8 g/dL 13.0-16.5 [facility] Monocytes/100 WBC (Bld) 7.8 % 0-10 [facility] Neutrophils (Bld) [#/Vol] 5.8 10*3/uL 2.0-7.7 [facility] Neutrophils/100 WBC (Bld) 66.4 % 47-70 [facility] WBC (Bld) [#/Vol] 8.7 10*3/uL 4.4-11.0 [facility] Determination of erythrocyte mean corpuscular volume (MCV)Ordered By: Renard Burgos on 07-10-2023 MCV (RBC) [Entitic vol] 88.9 fL 80-94 [facility] Erythrocyte distribution wid th ratioOrdered By: Renard Burgos on 07-10-2023 Erythrocyte distribution width (RBC) [Ratio] 12.6 % 11.6-14.6 [facility] Erythrocyte distribution wid th standard deviationOrdered By: Renard Burgos on 07-10-2023 Erythrocyte distribution width (RBC) [Entitic vol] 40.6 fL 35.1-43.9 [facility] Hematocrit Auto (Bld) [Volum e fraction]Ordered By: Renard Burgos on 07-10-2023 Hematocrit (Bld) [Volume fraction] 41.0 % 40-54 [facility] Immature granulocytes/100 WB C Auto (Bld)Ordered By: Renard Burgos on 07-10-2023 Immature granulocytes/100 WBC (Bld) 0.500 % 0.0-0.9 [facility] Comment on above: IG% - Immature Granu locytes (promyelocytes, myelocytes and metamyelocytes) > 1% indicates that a LEFT SHIFT is Present. Laboratory - Hematology and Cell countsOrdered By: Renard Burgos on 07-10-2023 MCH (RBC) [Entitic mass] 29.9 pg 27.0-32.0 [facility] MCHC (RBC) [Mass/Vol] 33.7 g/dL 32-36 [facility] Nucleated RBC/100 WBC (Bld) [Ratio] 0 % 0-5 [facility] Platelet mean volume (Bld) [Entitic vol] 11.0 fL 6.2-12.0 [facility] Platelets (Bld) [#/Vol] 215 10*3/uL 150-450 [facility] RBC Auto (Bld) [#/Vol]Ordere d By: Renard Burgos on 07-10-2023 RBC (Bld) [#/Vol] 4.61 10*6/uL 4.6-6.2 [facility] Absolute lymphocyte countOrd ered By: Renard Bugros on 07-03-2023 Lymphocytes Auto (Unsp spec) [#/Vol] 1.84 10*3/uL 0.83-4.51 [facility] Automated lymphocyte count a s percentage of total leukocytesOrdered By: Renard Burgos on 07-03-2023 Lymphocytes/100 WBC Auto (Unsp spec) 16.9 % 19-41 [facility] Basophil percentageOrdered B y: Renard Burgos on 07-03-2023 Basophil percentage 3.17 ng/mL 0.0-4.0 [facility] Comment on above: This test was perfor med using the TPSA assay method for thePrysm chemistry system. Values obtained with differentassay methods cannot be used interchangably.When changing PSA assays in the course of monitoring apatient, additional sequential testing should be carriedout to confirm baseline values. Basophils/100 WBC (Bld) 0.5 % 0-1 [facility] Eosinophils/100 WBC (Bld) 0.4 % 0-5 [facility] Hemoglobin (Bld) [Mass/Vol] 13.2 g/dL 13.0-16.5 [facility] Monocytes/100 WBC (Bld) 7.4 % 0-10 [facility] Neutrophils (Bld) [#/Vol] 8.1 10*3/uL 2.0-7.7 [facility] Neutrophils/100 WBC (Bld) 74.4 % 47-70 [facility] WBC (Bld) [#/Vol] 10.9 10*3/uL 4.4-11.0 [facility] Determination of erythrocyte mean corpuscular volume (MCV)Ordered By: Renard Burgos on 07-03-2023 MCV (RBC) [Entitic vol] 89.8 fL 80-94 [facility] Erythrocyte distribution wid th ratioOrdered By: Renard Burgos on 07-03-2023 Erythrocyte distribution width (RBC) [Ratio] 12.7 % 11.6-14.6 [facility] Erythrocyte distribution wid th standard deviationOrdered By: Renard Burgos on 07-03-2023 Erythrocyte distribution width (RBC) [Entitic vol] 41.9 fL 35.1-43.9 [facility] Hematocrit Auto (Bld) [Volum e fraction]Ordered By: Renard Burgos on 07-03-2023 Hematocrit (Bld) [Volume fraction] 40.3 % 40-54 [facility] Immature granulocytes/100 WB C Auto (Bld)Ordered By: Renard Burgos on 07-03-2023 Immature granulocytes/100 WBC (Bld) 0.400 % 0.0-0.9 [facility] Comment on above: IG% - Immature Granu locytes (promyelocytes, myelocytes and metamyelocytes) > 1% indicates that a LEFT SHIFT is Present. Laboratory - Hematology and Cell countsOrdered By: Renard Burgos on 07-03-2023 MCH (RBC) [Entitic mass] 29.4 pg 27.0-32.0 [facility] MCHC (RBC) [Mass/Vol] 32.8 g/dL 32-36 [facility] Nucleated RBC/100 WBC (Bld) [Ratio] 0 % 0-5 [facility] Platelet mean volume (Bld) [Entitic vol] 11.2 fL 6.2-12.0 [facility] Platelets (Bld) [#/Vol] 191 10*3/uL 150-450 [facility] RBC Auto (Bld) [#/Vol]Ordere d By: Renard Burgos on 07-03-2023 RBC (Bld) [#/Vol] 4.49 10*6/uL 4.6-6.2 [facility] Absolute lymphocyte countOrd ered By: Renard Burgos on 06-26-2023 Lymphocytes Auto (Unsp spec) [#/Vol] 2.23 10*3/uL 0.83-4.51 [facility] Automated lymphocyte count a s percentage of total leukocytesOrdered By: Renard Burgos on 06-26-2023 Lymphocytes/100 WBC Auto (Unsp spec) 27.3 % 19-41 [facility] Basophil percentageOrdered B y: Renard Burgos on 06-26-2023 Basophils/100 WBC (Bld) 0.5 % 0-1 [facility] Eosinophils/100 WBC (Bld) 0.7 % 0-5 [facility] Hemoglobin (Bld) [Mass/Vol] 13.7 g/dL 13.0-16.5 [facility] Monocytes/100 WBC (Bld) 9.5 % 0-10 [facility] Neutrophils (Bld) [#/Vol] 5.1 10*3/uL 2.0-7.7 [facility] Neutrophils/100 WBC (Bld) 61.8 % 47-70 [facility] WBC (Bld) [#/Vol] 8.2 10*3/uL 4.4-11.0 [facility] Determination of erythrocyte mean corpuscular volume (MCV)Ordered By: Renard Burgos on 06-26-2023 MCV (RBC) [Entitic vol] 92.2 fL 80-94 [facility] Erythrocyte distribution wid th ratioOrdered By: Renard Burgos on 06-26-2023 Erythrocyte distribution width (RBC) [Ratio] 12.7 % 11.6-14.6 [facility] Erythrocyte distribution wid th standard deviationOrdered By: Renard Burgos on 06-26-2023 Erythrocyte distribution width (RBC) [Entitic vol] 42.8 fL 35.1-43.9 [facility] Hematocrit Auto (Bld) [Volum e fraction]Ordered By: Renard Burgos on 06-26-2023 Hematocrit (Bld) [Volume fraction] 42.6 % 40-54 [facility] Immature granulocytes/100 WB C Auto (Bld)Ordered By: Renard Burgos on 06-26-2023 Immature granulocytes/100 WBC (Bld) 0.200 % 0.0-0.9 [facility] Comment on above: IG% - Immature Granu locytes (promyelocytes, myelocytes and metamyelocytes) > 1% indicates that a LEFT SHIFT is Present. Laboratory - Hematology and Cell countsOrdered By: Renard Burgos on 06-26-2023 MCH (RBC) [Entitic mass] 29.7 pg 27.0-32.0 [facility] MCHC (RBC) [Mass/Vol] 32.2 g/dL 32-36 [facility] Nucleated RBC/100 WBC (Bld) [Ratio] 0 % 0-5 [facility] Platelet mean volume (Bld) [Entitic vol] 11.0 fL 6.2-12.0 [facility] Platelets (Bld) [#/Vol] 182 10*3/uL 150-450 [facility] RBC Auto (Bld) [#/Vol]Ordere d By: Renard Burgos on 06-26-2023 RBC (Bld) [#/Vol] 4.62 10*6/uL 4.6-6.2 [facility] Absolute lymphocyte countOrd ered By: Renard Burgos on 06-19-2023 Lymphocytes Auto (Unsp spec) [#/Vol] 2.13 10*3/uL 0.83-4.51 [facility] Automated lymphocyte count a s percentage of total leukocytesOrdered By: Renard Burgos on 06-19-2023 Lymphocytes/100 WBC Auto (Unsp spec) 28.8 % 19-41 [facility] Basophil percentageOrdered B y: Renard Burgos on 06-19-2023 Basophils/100 WBC (Bld) 0.5 % 0-1 [facility] Eosinophils/100 WBC (Bld) 0.5 % 0-5 [facility] Hemoglobin (Bld) [Mass/Vol] 13.7 g/dL 13.0-16.5 [facility] Monocytes/100 WBC (Bld) 8.1 % 0-10 [facility] Neutrophils (Bld) [#/Vol] 4.6 10*3/uL 2.0-7.7 [facility] Neutrophils/100 WBC (Bld) 61.6 % 47-70 [facility] WBC (Bld) [#/Vol] 7.4 10*3/uL 4.4-11.0 [facility] Determination of erythrocyte mean corpuscular volume (MCV)Ordered By: Renard Burgos on 06-19-2023 MCV (RBC) [Entitic vol] 91.7 fL 80-94 [facility] Erythrocyte distribution wid th ratioOrdered By: Renard Burgos on 06-19-2023 Erythrocyte distribution width (RBC) [Ratio] 12.7 % 11.6-14.6 [facility] Erythrocyte distribution wid th standard deviationOrdered By: Renard Burgos on 06-19-2023 Erythrocyte distribution width (RBC) [Entitic vol] 42.8 fL 35.1-43.9 [facility] Hematocrit Auto (Bld) [Volum e fraction]Ordered By: Renard Burgos on 06-19-2023 Hematocrit (Bld) [Volume fraction] 43.1 % 40-54 [facility] Immature granulocytes/100 WB C Auto (Bld)Ordered By: Renard Burgos on 06-19-2023 Immature granulocytes/100 WBC (Bld) 0.500 % 0.0-0.9 [facility] Comment on above: IG% - Immature Granu locytes (promyelocytes, myelocytes and metamyelocytes) > 1% indicates that a LEFT SHIFT is Present. Laboratory - Hematology and Cell countsOrdered By: Renard Burgos on 06-19-2023 MCH (RBC) [Entitic mass] 29.1 pg 27.0-32.0 [facility] MCHC (RBC) [Mass/Vol] 31.8 g/dL 32-36 [facility] Nucle[facility] RBC/100 WBC (Bld) [Ratio] 0 % 0-5 [facility] Platelet mean volume (Bld) [Entitic vol] 11.1 fL 6.2-12.0 [facility] Platelets (Bld) [#/Vol] 201 10*3/uL 150-450 [facility] RBC Auto (Bld) [#/Vol]Ordere d By: Renard Burgos on 06-19-2023 RBC (Bld) [#/Vol] 4.70 10*6/uL 4.6-6.2 [facility] Absolute lymphocyte countOrd ered By: Renard Burgos on 06-12-2023 Lymphocytes Auto (Unsp spec) [#/Vol] 2.17 10*3/uL 0.83-4.51 [facility] Automated lymphocyte count a s percentage of total leukocytesOrdered By: Renard Burgos on 06-12-2023 Lymphocytes/100 WBC Auto (Unsp spec) 26.7 % 19-41 [facility] Basophil percentageOrdered B y: Renard Burgso on 06-12-2023 Basophils/100 WBC (Bld) 0.4 % 0-1 [facility] Eosinophils/100 WBC (Bld) 0.5 % 0-5 [facility] Hemoglobin (Bld) [Mass/Vol] 13.5 g/dL 13.0-16.5 [facility] Monocytes/100 WBC (Bld) 9.0 % 0-10 [facility] Neutrophils (Bld) [#/Vol] 5.1 10*3/uL 2.0-7.7 [facility] Neutrophils/100 WBC (Bld) 63.0 % 47-70 [facility] WBC (Bld) [#/Vol] 8.1 10*3/uL 4.4-11.0 [facility] Determination of erythrocyte mean corpuscular volume (MCV)Ordered By: Renard Burgos on 06-12-2023 MCV (RBC) [Entitic vol] 91.3 fL 80-94 [facility] Erythrocyte distribution wid th ratioOrdered By: Renard Burgos on 06-12-2023 Erythrocyte distribution width (RBC) [Ratio] 12.6 % 11.6-14.6 [facility] Erythrocyte distribution wid th standard deviationOrdered By: Renard Burgos on 06-12-2023 Erythrocyte distribution width (RBC) [Entitic vol] 41.5 fL 35.1-43.9 [facility] Hematocrit Auto (Bld) [Volum e fraction]Ordered By: Renard Burgos on 06-12-2023 Hematocrit (Bld) [Volume fraction] 40.8 % 40-54 [facility] Immature granulocytes/100 WB C Auto (Bld)Ordered By: Renard Burgos on 06-12-2023 Immature granulocytes/100 WBC (Bld) 0.400 % 0.0-0.9 [facility] Comment on above: IG% - Immature Granu locytes (promyelocytes, myelocytes and metamyelocytes) > 1% indicates that a LEFT SHIFT is Present. Laboratory - Hematology and Cell countsOrdered By: Renard Burgos on 06-12-2023 MCH (RBC) [Entitic mass] 30.2 pg 27.0-32.0 [facility] MCHC (RBC) [Mass/Vol] 33.1 g/dL 32-36 [facility] Nucleated RBC/100 WBC (Bld) [Ratio] 0 % 0-5 [facility] Platelet mean volume (Bld) [Entitic vol] 11.0 fL 6.2-12.0 [facility] Platelets (Bld) [#/Vol] 195 10*3/uL 150-450 [facility] RBC Auto (Bld) [#/Vol]Ordere d By: Renard Burgos on 06-12-2023 RBC (Bld) [#/Vol] 4.47 10*6/uL 4.6-6.2 [facility] Absolute lymphocyte countOrd ered By: Renard Burgos on 06-05-2023 Lymphocytes Auto (Unsp spec) [#/Vol] 2.05 10*3/uL 0.83-4.51 [facility] Automated lymphocyte count a s percentage of total leukocytesOrdered By: Renard Burgos on 06-05-2023 Lymphocytes/100 WBC Auto (Unsp spec) 24.1 % 19-41 [facility] Basophil percentageOrdered B y: Renard Burgos on 06-05-2023 Basophils/100 WBC (Bld) 0.5 % 0-1 [facility] Eosinophils/100 WBC (Bld) 0.5 % 0-5 [facility] Hemoglobin (Bld) [Mass/Vol] 13.6 g/dL 13.0-16.5 [facility] Monocytes/100 WBC (Bld) 7.6 % 0-10 [facility] Neutrophils (Bld) [#/Vol] 5.7 10*3/uL 2.0-7.7 [facility] Neutrophils/100 WBC (Bld) 66.9 % 47-70 [facility] WBC (Bld) [#/Vol] 8.5 10*3/uL 4.4-11.0 [facility] Determination of erythrocyte mean corpuscular volume (MCV)Ordered By: Renard Burgos on 06-05-2023 MCV (RBC) [Entitic vol] 89.7 fL 80-94 [facility] Erythrocyte distribution wid th ratioOrdered By: Renard Burgos on 06-05-2023 Erythrocyte distribution width (RBC) [Ratio] 12.6 % 11.6-14.6 [facility] Erythrocyte distribution wid th standard deviationOrdered By: Renard Burgos on 06-05-2023 Erythrocyte distribution width (RBC) [Entitic vol] 41.1 fL 35.1-43.9 [facility] Hematocrit Auto (Bld) [Volum e fraction]Ordered By: Renard Burgos on 06-05-2023 Hematocrit (Bld) [Volume fraction] 41.0 % 40-54 [facility] Immature granulocytes/100 WB C Auto (Bld)Ordered By: Renard Burgos on 06-05-2023 Immature granulocytes/100 WBC (Bld) 0.400 % 0.0-0.9 [facility] Comment on above: IG% - Immature Granu locytes (promyelocytes, myelocytes and metamyelocytes) > 1% indicates that a LEFT SHIFT is Present. Laboratory - Hematology and Cell countsOrdered By: Renard Burgos on 06-05-2023 MCH (RBC) [Entitic mass] 29.8 pg 27.0-32.0 [facility] MCHC (RBC) [Mass/Vol] 33.2 g/dL 32-36 [facility] Nucleated RBC/100 WBC (Bld) [Ratio] 0 % 0-5 [facility] Platelets (Bld) [#/Vol] 193 10*3/uL 150-450 [facility] Platelet mean volume Adam-Ec ker (Bld) [Entitic vol]Ordered By: Renard Burgos on 06-05-2023 Platelet mean volume (Bld) [Entitic vol] 10.8 fL 6.2-12.0 [facility] RBC Auto (Bld) [#/Vol]Ordere d By: Renard Burgos on 06-05-2023 RBC (Bld) [#/Vol] 4.57 10*6/uL 4.6-6.2 [facility] Absolute lymphocyte countOrd ered By: Renard Burgos on 05-29-2023 Lymphocytes Auto (Unsp spec) [#/Vol] 2.32 10*3/uL 0.83-4.51 [facility] Automated lymphocyte count a s percentage of total leukocytesOrdered By: Renard Burgos on 05-29-2023 Lymphocytes/100 WBC Auto (Unsp spec) 26.7 % 19-41 [facility] Basophil percentageOrdered B y: Renard Burgos on 05-29-2023 Basophils/100 WBC (Bld) 0.6 % 0-1 [facility] Eosinophils/100 WBC (Bld) 0.5 % 0-5 [facility] Hemoglobin (Bld) [Mass/Vol] 14.2 g/dL 13.0-16.5 [facility] Monocytes/100 WBC (Bld) 6.8 % 0-10 [facility] Neutrophils (Bld) [#/Vol] 5.7 10*3/uL 2.0-7.7 [facility] Neutrophils/100 WBC (Bld) 65.2 % 47-70 [facility] WBC (Bld) [#/Vol] 8.7 10*3/uL 4.4-11.0 [facility] Determination of erythrocyte mean corpuscular volume (MCV)Ordered By: Renard Burgos on 05-29-2023 MCV (RBC) [Entitic vol] 94.0 fL 80-94 [facility] Erythrocyte distribution wid th ratioOrdered By: Renard Burgos on 05-29-2023 Erythrocyte distribution width (RBC) [Ratio] 12.6 % 11.6-14.6 [facility] Erythrocyte distribution wid th standard deviationOrdered By: Renard Burgos on 05-29-2023 Erythrocyte distribution width (RBC) [Entitic vol] 43.0 fL 35.1-43.9 [facility] Hematocrit Auto (Bld) [Volum e fraction]Ordered By: Renard Burgos on 05-29-2023 Hematocrit (Bld) [Volume fraction] 45.4 % 40-54 [facility] Immature granulocytes/100 WB C Auto (Bld)Ordered By: Renard Burgos on 05-29-2023 Immature granulocytes/100 WBC (Bld) 0.200 % 0.0-0.9 [facility] Comment on above: IG% - Immature Granu locytes (promyelocytes, myelocytes and metamyelocytes) > 1% indicates that a LEFT SHIFT is Present. Laboratory - Hematology and Cell countsOrdered By: Renard Burgos on 05-29-2023 MCH (RBC) [Entitic mass] 29.4 pg 27.0-32.0 [facility] MCHC (RBC) [Mass/Vol] 31.3 g/dL 32-36 [facility] Nucleated RBC/100 WBC (Bld) [Ratio] 0 % 0-5 [facility] Platelets (Bld) [#/Vol] 116 10*3/uL 150-450 [facility] Platelet mean volume Adam-Ec ker (Bld) [Entitic vol]Ordered By: Renard Burgos on 05-29-2023 Platelet mean volume (Bld) [Entitic vol] 11.1 fL 6.2-12.0 [facility] RBC Auto (Bld) [#/Vol]Ordere d By: Renard Burgos on 05-29-2023 RBC (Bld) [#/Vol] 4.83 10*6/uL 4.6-6.2 [facility] Absolute lymphocyte countOrd ered By: Renard Burgos on 05-22-2023 Lymphocytes Auto (Unsp spec) [#/Vol] 2.40 10*3/uL 0.83-4.51 [facility] Automated lymphocyte count a s percentage of total leukocytesOrdered By: Renard Burgos on 05-22-2023 Lymphocytes/100 WBC Auto (Unsp spec) 25.6 % 19-41 [facility] Basophil percentageOrdered B y: Renard Burgos on 05-22-2023 Basophils/100 WBC (Bld) 0.4 % 0-1 [facility] Eosinophils/100 WBC (Bld) 0.4 % 0-5 [facility] Hemoglobin (Bld) [Mass/Vol] 13.7 g/dL 13.0-16.5 [facility] Monocytes/100 WBC (Bld) 9.1 % 0-10 [facility] Neutrophils (Bld) [#/Vol] 6.0 10*3/uL 2.0-7.7 [facility] Neutrophils/100 WBC (Bld) 63.9 % 47-70 [facility] WBC (Bld) [#/Vol] 9.4 10*3/uL 4.4-11.0 [facility] Determination of erythrocyte mean corpuscular volume (MCV)Ordered By: Renard Burgos on 05-22-2023 MCV (RBC) [Entitic vol] 91.8 fL 80-94 [facility] Erythrocyte distribution wid th ratioOrdered By: Renard Burgos on 05-22-2023 Erythrocyte distribution width (RBC) [Ratio] 12.8 % 11.6-14.6 [facility] Erythrocyte distribution wid th standard deviationOrdered By: Renard Burgos on 05-22-2023 Erythrocyte distribution width (RBC) [Entitic vol] 43.4 fL 35.1-43.9 [facility] Hematocrit Auto (Bld) [Volum e fraction]Ordered By: Renard Burgos on 05-22-2023 Hematocrit (Bld) [Volume fraction] 41.5 % 40-54 [facility] Immature granulocytes/100 WB C Auto (Bld)Ordered By: Renard Burgos on 05-22-2023 Immature granulocytes/100 WBC (Bld) 0.600 % 0.0-0.9 [facility] Comment on above: IG% - Immature Granu locytes (promyelocytes, myelocytes and metamyelocytes) > 1% indicates that a LEFT SHIFT is Present. Laboratory - Hematology and Cell countsOrdered By: Renard Burgos on 05-22-2023 MCH (RBC) [Entitic mass] 30.3 pg 27.0-32.0 [facility] MCHC (RBC) [Mass/Vol] 33.0 g/dL 32-36 [facility] Nucleated RBC/100 WBC (Bld) [Ratio] 0 % 0-5 [facility] Platelets (Bld) [#/Vol] 192 10*3/uL 150-450 [facility] Platelet mean volume Adam-Ec ker (Bld) [Entitic vol]Ordered By: Renard Burgos on 05-22-2023 Platelet mean volume (Bld) [Entitic vol] 11.3 fL 6.2-12.0 [facility] RBC Auto (Bld) [#/Vol]Ordere d By: Renard Burgos on 05-22-2023 RBC (Bld) [#/Vol] 4.52 10*6/uL 4.6-6.2 [facility] Absolute lymphocyte countOrd ered By: Renard Burgos on 05-15-2023 Lymphocytes Auto (Unsp spec) [#/Vol] 2.11 10*3/uL 0.83-4.51 [facility] Basophil percentageOrdered B y: Renard Burgos on 05-15-2023 Basophils/100 WBC (Bld) 0.6 % 0-1 [facility] Eosinophils/100 WBC (Bld) 0.8 % 0-5 [facility] Neutrophils (Bld) [#/Vol] 4.9 10*3/uL 2.0-7.7 [facility] Neutrophils/100 WBC (Bld) 62.4 % 47-70 [facility] WBC (Bld) [#/Vol] 7.9 10*3/uL 4.4-11.0 [facility] Blood erythrocytes count (nu mber/volume)Ordered By: Renard Burgos on 05-15-2023 RBC (Bld) [#/Vol] 4.61 10*6/uL 4.6-6.2 [facility] Blood hemoglobin measurement (mass/volume)Ordered By: Renard Burgos on 05-15-2023 Hemoglobin (Bld) [Mass/Vol] 13.9 g/dL 13.0-16.5 [facility] Blood lymphocytes/100 leukoc ytesOrdered By: Renard Burgos on 05-15-2023 Lymphocytes/100 WBC (Bld) 26.7 % 19-41 [facility] Blood monocytes/100 leukocyt esOrdered By: Renard Burgos on 05-15-2023 Monocytes/100 WBC (Bld) 9.1 % 0-10 [facility] Blood platelet mean volumeOr dered By: Renard Burgos on 05-15-2023 Platelet mean volume (Bld) [Entitic vol] 10.7 fL 6.2-12.0 [facility] Determination of erythrocyte mean corpuscular volume (MCV)Ordered By: Renard Burgos on 05-15-2023 MCV (RBC) [Entitic vol] 90.5 fL 80-94 [facility] Hematocrit Auto (Bld) [Volum e fraction]Ordered By: Renard Burgos on 05-15-2023 Hematocrit (Bld) [Volume fraction] 41.7 % 40-54 [facility] Laboratory - Hematology and Cell countsOrdered By: Renard Burgos on 05-15-2023 Erythrocyte distribution width (RBC) [Entitic vol] 42.4 fL 35.1-43.9 [facility] Erythrocyte distribution width (RBC) [Ratio] 12.9 % 11.6-14.6 [facility] Immature granulocytes/100 WBC (Bld) 0.400 % 0.0-0.9 [facility] Comment on above: IG% - Immature Granu locytes (promyelocytes, myelocytes and metamyelocytes) > 1% indicates that a LEFT SHIFT is Present. MCH (RBC) [Entitic mass] 30.2 pg 27.0-32.0 [facility] Nucleated RBC/100 WBC (Bld) [Ratio] 0 % 0-5 [facility] MCHC Auto (RBC) [Mass/Vol]Or dered By: Renard Burgos on 05-15-2023 MCHC (RBC) [Mass/Vol] 33.3 g/dL 32-36 [facility] Platelets bldOrdered By: Lyubov Burgos on 05-15-2023 Platelets (Bld) [#/Vol] 202 10*3/uL 150-450 [facility] Absolute lymphocyte countOrd ered By: Renard Burgos on 05-08-2023 Lymphocytes Auto (Unsp spec) [#/Vol] 2.06 10*3/uL 0.83-4.51 [facility] Basophil percentageOrdered B y: Renard Burgos on 05-08-2023 Basophils/100 WBC (Bld) 0.4 % 0-1 [facility] Eosinophils/100 WBC (Bld) 0.5 % 0-5 [facility] Neutrophils (Bld) [#/Vol] 5.0 10*3/uL 2.0-7.7 [facility] Neutrophils/100 WBC (Bld) 65.7 % 47-70 [facility] WBC (Bld) [#/Vol] 7.5 10*3/uL 4.4-11.0 [facility] Blood erythrocytes count (nu mber/volume)Ordered By: Renard Burgos on 05-08-2023 RBC (Bld) [#/Vol] 4.62 10*6/uL 4.6-6.2 [facility] Blood hemoglobin measurement (mass/volume)Ordered By: Renard Burgos on 05-08-2023 Hemoglobin (Bld) [Mass/Vol] 13.6 g/dL 13.0-16.5 [facility] Blood lymphocytes/100 leukoc ytesOrdered By: Renard Burgos on 05-08-2023 Lymphocytes/100 WBC (Bld) 27.4 % 19-41 [facility] Blood monocytes/100 leukocyt esOrdered By: Renard Burgos on 05-08-2023 Monocytes/100 WBC (Bld) 5.6 % 0-10 [facility] Blood platelet mean volumeOr dered By: Renard Burgos on 05-08-2023 Platelet mean volume (Bld) [Entitic vol] 11.0 fL 6.2-12.0 [facility] Determination of erythrocyte mean corpuscular volume (MCV)Ordered By: Renard Burgos on 05-08-2023 MCV (RBC) [Entitic vol] 91.8 fL 80-94 [facility] Hematocrit Auto (Bld) [Volum e fraction]Ordered By: Renard Burgos on 05-08-2023 Hematocrit (Bld) [Volume fraction] 42.4 % 40-54 [facility] Laboratory - Hematology and Cell countsOrdered By: Renard Burgos on 05-08-2023 Erythrocyte distribution width (RBC) [Entitic vol] 43.1 fL 35.1-43.9 [facility] Erythrocyte distribution width (RBC) [Ratio] 13.0 % 11.6-14.6 [facility] Immature granulocytes/100 WBC (Bld) 0.400 % 0.0-0.9 [facility] Comment on above: IG% - Immature Granu locytes (promyelocytes, myelocytes and metamyelocytes) > 1% indicates that a LEFT SHIFT is Present. MCH (RBC) [Entitic mass] 29.4 pg 27.0-32.0 [facility] Nucleated RBC/100 WBC (Bld) [Ratio] 0 % 0-5 [facility] MCHC Auto (RBC) [Mass/Vol]Or dered By: Renard Burgos on 05-08-2023 MCHC (RBC) [Mass/Vol] 32.1 g/dL 32-36 [facility] Platelets bldOrdered By: Lyubov Burgos on 05-08-2023 Platelets (Bld) [#/Vol] 226 10*3/uL 150-450 [facility] Absolute lymphocyte countOrd ered By: Renard Burgos on 04-17-2023 Lymphocytes Auto (Unsp spec) [#/Vol] 0.92 10*3/uL 0.83-4.51 [facility] Basophil percentageOrdered B y: Renard Burgos on 04-17-2023 Basophils/100 WBC (Bld) 0.1 % 0-1 [facility] Eosinophils/100 WBC (Bld) 0.0 % 0-5 [facility] Neutrophils (Bld) [#/Vol] 6.0 10*3/uL 2.0-7.7 [facility] Neutrophils/100 WBC (Bld) 81.4 % 47-70 [facility] WBC (Bld) [#/Vol] 7.4 10*3/uL 4.4-11.0 [facility] Blood erythrocytes count (nu mber/volume)Ordered By: Renard Burgos on 04-17-2023 RBC (Bld) [#/Vol] 4.59 10*6/uL 4.6-6.2 [facility] Blood hemoglobin measurement (mass/volume)Ordered By: Renard Burgos on 04-17-2023 Hemoglobin (Bld) [Mass/Vol] 13.7 g/dL 13.0-16.5 [facility] Blood lymphocytes/100 leukoc ytesOrdered By: Renard Burgos on 04-17-2023 Lymphocytes/100 WBC (Bld) 12.5 % 19-41 [facility] Blood monocytes/100 leukocyt esOrdered By: Renard Burgos on 04-17-2023 Monocytes/100 WBC (Bld) 5.6 % 0-10 [facility] Blood platelet mean volumeOr dered By: Renard Burgos on 04-17-2023 Platelet mean volume (Bld) [Entitic vol] 10.9 fL 6.2-12.0 [facility] Determination of erythrocyte mean corpuscular volume (MCV)Ordered By: Renard Burgos on 04-17-2023 MCV (RBC) [Entitic vol] 90.8 fL 80-94 [facility] Hematocrit Auto (Bld) [Volum e fraction]Ordered By: Renard Burgos on 04-17-2023 Hematocrit (Bld) [Volume fraction] 41.7 % 40-54 [facility] Laboratory - Hematology and Cell countsOrdered By: Renard Burgos on 04-17-2023 Erythrocyte distribution width (RBC) [Entitic vol] 42.3 fL 35.1-43.9 [facility] Erythrocyte distribution width (RBC) [Ratio] 12.8 % 11.6-14.6 [facility] Immature granulocytes/100 WBC (Bld) 0.400 % 0.0-0.9 [facility] Comment on above: IG% - Immature Granu locytes (promyelocytes, myelocytes and metamyelocytes) > 1% indicates that a LEFT SHIFT is Present. MCH (RBC) [Entitic mass] 29.8 pg 27.0-32.0 [facility] Nucleated RBC/100 WBC (Bld) [Ratio] 0 % 0-5 [facility] MCHC Auto (RBC) [Mass/Vol]Or dered By: Renard Burgos on 04-17-2023 MCHC (RBC) [Mass/Vol] 32.9 g/dL 32-36 [facility] Platelets bldOrdered By: Pet lizy Burgos on 04-17-2023 Platelets (Bld) [#/Vol] 194 10*3/uL 150-450 [facility] Basophil percentageOrdered B y: Renard Burgos on 04-14-2023 Bilirubin [Mass/Vol] 0.30 mg/dL 0.20-1.00 [facility] Comment on above: For patients on eltr ombopag therapy, use of Dimension [place] TBIL is not recommended. Protein [Mass/Vol] 6.2 g/dL 6.4-8.2 [facility] Direct bilirubinOrdered By: Renard Burgos on 04-14-2023 Bilirubin.direct [Mass/Vol] 0.11 mg/dL 0.00-0.30 [facility] Laboratory - Chemistry and C hemistry - challengeOrdered By: Renard Burgos on 04-14-2023 ALP [Catalytic activity/Vol] 139 U/L 45-117 [facility] ALT [Catalytic activity/Vol] 23 U/L 16-61 [facility] Globulin (S) [Mass/Vol] 3.2 g/dL 2.2-4.2 [facility] Serum or plasma albumin gordy urement (mass/volume)Ordered By: Renard Burgos on 04-14-2023 Albumin [Mass/Vol] 3.0 g/dL 3.2-5.0 [facility] Thin prep Papanicolaou smear with manual screeningOrdered By: Renard Burgos on 04-14-2023 Thin prep Papanicolaou smear with manual screening 14 U/L 15-37 [facility] Absolute lymphocyte countOrd ered By: Renard Burgos on 04-10-2023 Lymphocytes Auto (Unsp spec) [#/Vol] 2.54 10*3/uL 0.83-4.51 [facility] Basophil percentageOrdered B y: Renard Burgos on 04-10-2023 Basophils/100 WBC (Bld) 0.5 % 0-1 [facility] Eosinophils/100 WBC (Bld) 0.5 % 0-5 [facility] Neutrophils (Bld) [#/Vol] 5.1 10*3/uL 2.0-7.7 [facility] Neutrophils/100 WBC (Bld) 59.0 % 47-70 [facility] WBC (Bld) [#/Vol] 8.7 10*3/uL 4.4-11.0 [facility] Blood erythrocytes count (nu mber/volume)Ordered By: Renard Burgos on 04-10-2023 RBC (Bld) [#/Vol] 4.84 10*6/uL 4.6-6.2 [facility] Blood hemoglobin measurement (mass/volume)Ordered By: Renard Burgos on 04-10-2023 Hemoglobin (Bld) [Mass/Vol] 14.2 g/dL 13.0-16.5 [facility] Blood lymphocytes/100 leukoc ytesOrdered By: Renard Burgos on 04-10-2023 Lymphocytes/100 WBC (Bld) 29.4 % 19-41 [facility] Blood monocytes/100 leukocyt esOrdered By: Renard Burgos on 04-10-2023 Monocytes/100 WBC (Bld) 10.3 % 0-10 [facility] Blood platelet mean volumeOr dered By: Renard Burgos on 04-10-2023 Platelet mean volume (Bld) [Entitic vol] 11.1 fL 6.2-12.0 [facility] Determination of erythrocyte mean corpuscular volume (MCV)Ordered By: Renard Burgos on 04-10-2023 MCV (RBC) [Entitic vol] 91.5 fL 80-94 [facility] Hematocrit Auto (Bld) [Volum e fraction]Ordered By: Renard Burgos on 04-10-2023 Hematocrit (Bld) [Volume fraction] 44.3 % 40-54 [facility] - Hematology and Cell countsOrdered By: Renard Burgos on 04-10-2023 Erythrocyte distribution width (RBC) [Entitic vol] 41.9 fL 35.1-43.9 [facility] Erythrocyte distribution width (RBC) [Ratio] 12.6 % 11.6-14.6 [facility] Immature granulocytes/100 WBC (Bld) 0.300 % 0.0-0.9 [facility] Comment on above: IG% - Immature Granu locytes (promyelocytes, myelocytes and metamyelocytes) > 1% indicates that a LEFT SHIFT is Present. MCH (RBC) [Entitic mass] 29.3 pg 27.0-32.0 [facility] Nucleated RBC/100 WBC (Bld) [Ratio] 0 % 0-5 [facility] MCHC Auto (RBC) [Mass/Vol]Or dered By: Renard Burgos on 04-10-2023 MCHC (RBC) [Mass/Vol] 32.1 g/dL 32-36 [facility] Platelets bldOrdered By: Lyubov Burgos on 04-10-2023 Platelets (Bld) [#/Vol] 216 10*3/uL 150-450 [facility] Absolute lymphocyte countOrd ered By: Renard Burgos on 04-03-2023 Lymphocytes Auto (Unsp spec) [#/Vol] 1.91 10*3/uL 0.83-4.51 [facility] Basophil percentageOrdered B y: Renard Burgos on 04-03-2023 Basophils/100 WBC (Bld) 0.5 % 0-1 [facility] Eosinophils/100 WBC (Bld) 0.5 % 0-5 [facility] Neutrophils (Bld) [#/Vol] 5.0 10*3/uL 2.0-7.7 [facility] Neutrophils/100 WBC (Bld) 66.5 % 47-70 [facility] WBC (Bld) [#/Vol] 7.6 10*3/uL 4.4-11.0 [facility] Blood erythrocytes count (nu mber/volume)Ordered By: Renard Burgos on 04-03-2023 RBC (Bld) [#/Vol] 4.62 10*6/uL 4.6-6.2 [facility] Blood hemoglobin measurement (mass/volume)Ordered By: Renard Burgos on 04-03-2023 Hemoglobin (Bld) [Mass/Vol] 13.7 g/dL 13.0-16.5 [facility] Blood lymphocytes/100 leukoc ytesOrdered By: Renard Burgos on 04-03-2023 Lymphocytes/100 WBC (Bld) 25.2 % 19-41 [facility] Blood monocytes/100 leukocyt esOrdered By: Renard Burgos on 04-03-2023 Monocytes/100 WBC (Bld) 6.9 % 0-10 [facility] Blood platelet mean volumeOr dered By: Renard Burgos on 04-03-2023 Platelet mean volume (Bld) [Entitic vol] 10.8 fL 6.2-12.0 [facility] Determination of erythrocyte mean corpuscular volume (MCV)Ordered By: Renard Burgos on 04-03-2023 MCV (RBC) [Entitic vol] 91.6 fL 80-94 [facility] Hematocrit Auto (Bld) [Volum e fraction]Ordered By: Renard Burgos on 04-03-2023 Hematocrit (Bld) [Volume fraction] 42.3 % 40-54 [facility] - Hematology and Cell countsOrdered By: Renard Burgos on 04-03-2023 Erythrocyte distribution width (RBC) [Entitic vol] 42.6 fL 35.1-43.9 [facility] Erythrocyte distribution width (RBC) [Ratio] 12.8 % 11.6-14.6 [facility] Immature granulocytes/100 WBC (Bld) 0.400 % 0.0-0.9 [facility] Comment on above: IG% - Immature Granu locytes (promyelocytes, myelocytes and metamyelocytes) > 1% indicates that a LEFT SHIFT is Present. MCH (RBC) [Entitic mass] 29.7 pg 27.0-32.0 [facility] Nucleated RBC/100 WBC (Bld) [Ratio] 0 % 0-5 [facility] MCHC Auto (RBC) [Mass/Vol]Or dered By: Renard Burgos on 04-03-2023 MCHC (RBC) [Mass/Vol] 32.4 g/dL 32-36 [facility] Platelets bldOrdered By: Lyubov Burgos on 04-03-2023 Platelets (Bld) [#/Vol] 216 10*3/uL 150-450 [facility] Absolute lymphocyte countOrd ered By: Renard Burgos on 03-27-2023 Lymphocytes Auto (Unsp spec) [#/Vol] 2.06 10*3/uL 0.83-4.51 [facility] Basophil percentageOrdered B y: Renard Burgos on 03-27-2023 Basophils/100 WBC (Bld) 0.4 % 0-1 [facility] Eosinophils/100 WBC (Bld) 0.2 % 0-5 [facility] Neutrophils (Bld) [#/Vol] 6.3 10*3/uL 2.0-7.7 [facility] Neutrophils/100 WBC (Bld) 68.8 % 47-70 [facility] WBC (Bld) [#/Vol] 9.1 10*3/uL 4.4-11.0 [facility] Blood erythrocytes count (nu mber/volume)Ordered By: Renard Burgos on 03-27-2023 RBC (Bld) [#/Vol] 4.51 10*6/uL 4.6-6.2 [facility] Blood hemoglobin measurement (mass/volume)Ordered By: Renard Burgos on 03-27-2023 Hemoglobin (Bld) [Mass/Vol] 13.2 g/dL 13.0-16.5 [facility] Blood lymphocytes/100 leukoc ytesOrdered By: Renard Burgos on 03-27-2023 Lymphocytes/100 WBC (Bld) 22.6 % 19-41 [facility] Blood monocytes/100 leukocyt esOrdered By: Renard Burgos on 03-27-2023 Monocytes/100 WBC (Bld) 7.3 % 0-10 [facility] Blood platelet mean volumeOr dered By: Renard Burgos on 03-27-2023 Platelet mean volume (Bld) [Entitic vol] 10.8 fL 6.2-12.0 [facility] Determination of erythrocyte mean corpuscular volume (MCV)Ordered By: Renard Burgos on 03-27-2023 MCV (RBC) [Entitic vol] 91.6 fL 80-94 [facility] Hematocrit Auto (Bld) [Volum e fraction]Ordered By: Renard Burgos on 03-27-2023 Hematocrit (Bld) [Volume fraction] 41.3 % 40-54 [facility] - Hematology and Cell countsOrdered By: Renard Burgos on 03-27-2023 Erythrocyte distribution width (RBC) [Entitic vol] 42.9 fL 35.1-43.9 [facility] Erythrocyte distribution width (RBC) [Ratio] 12.9 % 11.6-14.6 [facility] Immature granulocytes/100 WBC (Bld) 0.700 % 0.0-0.9 [facility] Comment on above: IG% - Immature Granu locytes (promyelocytes, myelocytes and metamyelocytes) > 1% indicates that a LEFT SHIFT is Present. MCH (RBC) [Entitic mass] 29.3 pg 27.0-32.0 [facility] Nucleated RBC/100 WBC (Bld) [Ratio] 0 % 0-5 [facility] MCHC Auto (RBC) [Mass/Vol]Or dered By: Renard Burgos on 03-27-2023 MCHC (RBC) [Mass/Vol] 32.0 g/dL 32-36 [facility] Platelets bldOrdered By: Lyubov Burgos on 03-27-2023 Platelets (Bld) [#/Vol] 205 10*3/uL 150-450 [facility] Absolute lymphocyte countOrd ered By: Renard Burgos on 03-20-2023 Lymphocytes Auto (Unsp spec) [#/Vol] 1.89 10*3/uL 0.83-4.51 [facility] Basophil percentageOrdered B y: Renard Burgos on 03-20-2023 Basophils/100 WBC (Bld) 0.5 % 0-1 [facility] Chloride [Moles/Vol] 107 mmol/L 98-107 [facility] Eosinophils/100 WBC (Bld) 0.4 % 0-5 [facility] Glucose [Mass/Vol] 124 mg/dL 74-106 [facility] Comment on above: Fasting Glucose resu lt from 100 to 125 mg/dL suggests IMPAIRED HOMEOSTASIS per A.D.A. criteria. Neutrophils (Bld) [#/Vol] 4.8 10*3/uL 2.0-7.7 [facility] Neutrophils/100 WBC (Bld) 64.9 % 47-70 [facility] Potassium [Moles/Vol] 3.6 mmol/L 3.5-5.1 [facility] Sodium [Moles/Vol] 142 mmol/L 136-145 [facility] WBC (Bld) [#/Vol] 7.4 10*3/uL 4.4-11.0 [facility] Blood erythrocytes count (nu mber/volume)Ordered By: Renard Burgos on 03-20-2023 RBC (Bld) [#/Vol] 4.63 10*6/uL 4.6-6.2 [facility] Blood hemoglobin measurement (mass/volume)Ordered By: Renard Burgos on 03-20-2023 Hemoglobin (Bld) [Mass/Vol] 13.7 g/dL 13.0-16.5 [facility] Blood lymphocytes/100 leukoc ytesOrdered By: Renard Burgos on 03-20-2023 Lymphocytes/100 WBC (Bld) 25.7 % 19-41 [facility] Blood monocytes/100 leukocyt esOrdered By: Renard Burgos on 03-20-2023 Monocytes/100 WBC (Bld) 8.2 % 0-10 [facility] Blood platelet mean volumeOr dered By: Renard Burgos on 03-20-2023 Platelet mean volume (Bld) [Entitic vol] 10.7 fL 6.2-12.0 [facility] Determination of erythrocyte mean corpuscular volume (MCV)Ordered By: Renard Burgos on 03-20-2023 MCV (RBC) [Entitic vol] 90.9 fL 80-94 [facility] Hematocrit Auto (Bld) [Volum e fraction]Ordered By: Renard Burgos on 03-20-2023 Hematocrit (Bld) [Volume fraction] 42.1 % 40-54 [facility] - Chemistry and C hemistry - challengeOrdered By: Renard Burgos on 03-20-2023 CO2 [Moles/Vol] 29.0 mmol/L 21.0-32.0 [facility] Urea nitrogen/Creatinine [Mass ratio] 30.7 mg/mg 02-17 [facility] - Hematology and Cell countsOrdered By: Renard Burgos on 03-20-2023 Erythrocyte distribution width (RBC) [Entitic vol] 43.0 fL 35.1-43.9 [facility] Erythrocyte distribution width (RBC) [Ratio] 12.9 % 11.6-14.6 [facility] Immature granulocytes/100 WBC (Bld) 0.300 % 0.0-0.9 [facility] Comment on above: IG% - Immature Granu locytes (promyelocytes, myelocytes and metamyelocytes) > 1% indicates that a LEFT SHIFT is Present. MCH (RBC) [Entitic mass] 29.6 pg 27.0-32.0 [facility] Nucleated RBC/100 WBC (Bld) [Ratio] 0 % 0-5 [facility] MCHC Auto (RBC) [Mass/Vol]Or dered By: Renard Burgos on 03-20-2023 MCHC (RBC) [Mass/Vol] 32.5 g/dL 32-36 [facility] No Panel InformationOrdered By: Renard Burgos on 03-20-2023 Estimated GFR (MDRD) Amer 178 mL/min >60 [facility] Comment on above: GFR Calc Estimated GFR (MDRD) Non-Af Amer 147 mL/min >60 [facility] Comment on above: Non- GFR Calc Platelets bldOrdered By: Lyubov Burgos on 03-20-2023 Platelets (Bld) [#/Vol] 208 10*3/uL 150-450 [facility] Serum or plasma calcium gordy urement (mass/volume)Ordered By: Renard Burgos on 03-20-2023 Calcium [Mass/Vol] 8.1 mg/dL 8.5-10.1 [facility] Serum or plasma creatinine m easurement (mass/volume)Ordered By: Renard Burgos on 03-20-2023 Creatinine [Mass/Vol] 0.59 mg/dL 0.70-1.30 [facility] Comment on above: The validity of the calculated GFR & GFRAA in patients over 70 years has not been determined. Clinical correlation is essential. Serum or plasma urea nitroge n measurement (mass/volume)Ordered By: Renard Burgos on 03-20-2023 Urea nitrogen [Mass/Vol] 18 mg/dL 7-18 [facility] Thin prep Papanicolaou smear with manual screeningOrdered By: Renard Burgos on 03-20-2023 Thin prep Papanicolaou smear with manual screening 6 5-15 [facility] Erythrocyte sedimentation ra teOrdered By: Renard Burgos on 03-16-2023 ESR (Bld) [Velocity] 3 mm/h 0-20 [facility] Absolute lymphocyte countOrd ered By: Renard Burgos on 03-13-2023 Lymphocytes Auto (Unsp spec) [#/Vol] 2.36 10*3/uL 0.83-4.51 [facility] Basophil percentageOrdered B y: Renard Burgos on 03-13-2023 Basophils/100 WBC (Bld) 0.5 % 0-1 [facility] Eosinophils/100 WBC (Bld) 0.5 % 0-5 [facility] Neutrophils (Bld) [#/Vol] 5.2 10*3/uL 2.0-7.7 [facility] Neutrophils/100 WBC (Bld) 61.3 % 47-70 [facility] WBC (Bld) [#/Vol] 8.5 10*3/uL 4.4-11.0 [facility] Blood erythrocytes count (nu mber/volume)Ordered By: Renard Burgos on 03-13-2023 RBC (Bld) [#/Vol] 4.55 10*6/uL 4.6-6.2 [facility] Blood hemoglobin measurement (mass/volume)Ordered By: Renard Burgos on 03-13-2023 Hemoglobin (Bld) [Mass/Vol] 13.4 g/dL 13.0-16.5 [facility] Blood lymphocytes/100 leukoc ytesOrdered By: Renard Burgos on 03-13-2023 Lymphocytes/100 WBC (Bld) 27.7 % 19-41 [facility] Blood monocytes/100 leukocyt esOrdered By: Renard Burgos on 03-13-2023 Monocytes/100 WBC (Bld) 9.5 % 0-10 [facility] Blood platelet mean volumeOr dered By: Renard Burgos on 03-13-2023 Platelet mean volume (Bld) [Entitic vol] 10.6 fL 6.2-12.0 [facility] Determination of erythrocyte mean corpuscular volume (MCV)Ordered By: Renard Burgos on 03-13-2023 MCV (RBC) [Entitic vol] 93.4 fL 80-94 [facility] Hematocrit Auto (Bld) [Volum e fraction]Ordered By: Renard Burgos on 03-13-2023 Hematocrit (Bld) [Volume fraction] 42.5 % 40-54 [facility] - Hematology and Cell countsOrdered By: Renard Burgos on 03-13-2023 Erythrocyte distribution width (RBC) [Entitic vol] 44.1 fL 35.1-43.9 [facility] Erythrocyte distribution width (RBC) [Ratio] 13.0 % 11.6-14.6 [facility] Immature granulocytes/100 WBC (Bld) 0.500 % 0.0-0.9 [facility] Comment on above: IG% - Immature Granu locytes (promyelocytes, myelocytes and metamyelocytes) > 1% indicates that a LEFT SHIFT is Present. MCH (RBC) [Entitic mass] 29.5 pg 27.0-32.0 [facility] Nucleated RBC/100 WBC (Bld) [Ratio] 0 % 0-5 [facility] MCHC Auto (RBC) [Mass/Vol]Or dered By: Renard Burgos on 03-13-2023 MCHC (RBC) [Mass/Vol] 31.5 g/dL 32-36 [facility] Platelets bldOrdered By: Lyubov Burgos on 03-13-2023 Platelets (Bld) [#/Vol] 200 10*3/uL 150-450 [facility] Absolute lymphocyte countOrd ered By: Renard Burgos on 03-06-2023 Lymphocytes Auto (Unsp spec) [#/Vol] 1.80 10*3/uL 0.83-4.51 [facility] Basophil percentageOrdered B y: Renard Burgos on 03-06-2023 Basophils/100 WBC (Bld) 0.5 % 0-1 [facility] Bilirubin [Mass/Vol] 0.40 mg/dL 0.20-1.00 [facility] Comment on above: For patients on eltr ombopag therapy, use of Dimension [place] TBIL is not recommended. Chloride [Moles/Vol] 107 mmol/L 98-107 [facility] Cholesterol [Mass/Vol] 118 mg/dL <[address] [facility] Comment on above: <200 mg/dL Desirable 200-240 mg/dL Borderline >240 mg/dL High Risk Eosinophils/100 WBC (Bld) 0.5 % 0-5 [facility] Glucose [Mass/Vol] 107 mg/dL 74-106 [facility] Comment on above: Fasting Glucose resu lt from 100 to 125 mg/dL suggests IMPAIRED HOMEOSTASIS per A.D.A. criteria. Neutrophils (Bld) [#/Vol] 5.5 10*3/uL 2.0-7.7 [facility] Neutrophils/100 WBC (Bld) 68.0 % 47-70 [facility] Potassium [Moles/Vol] 3.8 mmol/L 3.5-5.1 [facility] Protein [Mass/Vol] 6.3 g/dL 6.4-8.2 [facility] Sodium [Moles/Vol] 141 mmol/L 136-145 [facility] Triglyceride [Mass/Vol] 185 mg/dL <199 [facility] Comment on above: The drugs N-Acetylcy steine and Metamizole may falsely depress this assay.Serum Triglycerides Reference Interval Normal <150 mg/dL Borderline high 150 - 199 mg/dL High 200 - 499 mg/dL Very High > or = 500 mg/dL WBC (Bld) [#/Vol] 8.1 10*3/uL 4.4-11.0 [facility] Blood erythrocytes count (nu mber/volume)Ordered By: Renard Burgos on 03-06-2023 RBC (Bld) [#/Vol] 4.69 10*6/uL 4.6-6.2 [facility] Blood hemoglobin measurement (mass/volume)Ordered By: Renard Burgos on 03-06-2023 Hemoglobin (Bld) [Mass/Vol] 14.0 g/dL 13.0-16.5 [facility] Blood lymphocytes/100 leukoc ytesOrdered By: Renard Burgos on 03-06-2023 Lymphocytes/100 WBC (Bld) 22.3 % 19-41 [facility] Blood monocytes/100 leukocyt esOrdered By: Renard Burgos on 03-06-2023 Monocytes/100 WBC (Bld) 8.2 % 0-10 [facility] Blood platelet mean volumeOr dered By: Renard Burgos on 03-06-2023 Platelet mean volume (Bld) [Entitic vol] 10.9 fL 6.2-12.0 [facility] Determination of erythrocyte mean corpuscular volume (MCV)Ordered By: Renard Burgos on 03-06-2023 MCV (RBC) [Entitic vol] 91.9 fL 80-94 [facility] Hematocrit Auto (Bld) [Volum e fraction]Ordered By: Renard Burgos on 03-06-2023 Hematocrit (Bld) [Volume fraction] 43.1 % 40-54 [facility] - Chemistry and C hemistry - challengeOrdered By: Renard Burgos on 03-06-2023 ALP [Catalytic activity/Vol] 120 U/L 45-117 [facility] ALT [Catalytic activity/Vol] 20 U/L 16-61 [facility] CO2 [Moles/Vol] 30.0 mmol/L 21.0-32.0 [facility] Globulin (S) [Mass/Vol] 3.3 g/dL 2.2-4.2 [facility] Urea nitrogen/Creatinine [Mass ratio] 27.1 mg/mg 10-20 [facility] - Hematology and Cell countsOrdered By: Renard Burgos on 03-06-2023 Erythrocyte distribution width (RBC) [Entitic vol] 42.5 fL 35.1-43.9 [facility] Erythrocyte distribution width (RBC) [Ratio] 12.9 % 11.6-14.6 [facility] Immature granulocytes/100 WBC (Bld) 0.500 % 0.0-0.9 [facility] Comment on above: IG% - Immature Granu locytes (promyelocytes, myelocytes and metamyelocytes) > 1% indicates that a LEFT SHIFT is Present. MCH (RBC) [Entitic mass] 29.9 pg 27.0-32.0 [facility] Nucleated RBC/100 WBC (Bld) [Ratio] 0 % 0-5 [facility] MCHC Auto (RBC) [Mass/Vol]Or dered By: Renard Burgos on 03-06-2023 MCHC (RBC) [Mass/Vol] 32.5 g/dL 32-36 [facility] No Panel InformationOrdered By: Renard Burgos on 03-06-2023 Estimated GFR (MDRD) Amer 165 mL/min >60 [facility] Comment on above: GFR Calc Estimated GFR (MDRD) Non-Af Amer 136 mL/min >60 [facility] Comment on above: Non- GFR Calc Platelets bldOrdered By: Lyubov Burgos on 03-06-2023 Platelets (Bld) [#/Vol] 232 10*3/uL 150-450 [facility] Serum or plasma albumin gordy urement (mass/volume)Ordered By: Renard Burgos on 03-06-2023 Albumin [Mass/Vol] 3.0 g/dL 3.2-5.0 [facility] Serum or plasma albumin/glob ulin mass ratioOrdered By: Renard Burgos on 03-06-2023 Albumin/Globulin [Mass ratio] 0.9 {ratio} 0.9-2.4 [facility] Serum or plasma calcium gordy urement (mass/volume)Ordered By: Renard Burgos on 03-06-2023 Calcium [Mass/Vol] 8.2 mg/dL 8.5-10.1 [facility] Serum or plasma cholesterol in HDL measurement (mass/volume)Ordered By: Renard Burgos on 03-06-2023 Cholesterol in HDL [Mass/Vol] 25 mg/dL >40 [facility] Comment on above: The drugs N-Acetylcy steine and Metamizole may falsely depress this assay. Reference Range HDL <40 mg/dL Low HDL Cholesterol HDL >or= 60 mg/dL High HDL Cholesterol Serum or plasma cholesterol in VLDL measurement (mass/volume)Ordered By: Renard Burgos on 03-06-2023 Cholesterol in VLDL [Mass/Vol] 37 mg/dL 5-40 [facility] Serum or plasma creatinine m easurement (mass/volume)Ordered By: Renard Burgos on 03-06-2023 Creatinine [Mass/Vol] 0.63 mg/dL 0.70-1.30 [facility] Comment on above: The validity of the calculated GFR & GFRAA in patients over 70 years has not been determined. Clinical correlation is essential. Serum or plasma low density lipoprotein (LDL) cholesterol measurement (mass/volume)Ordered By: Renard Burgos on 03-06-2023 Cholesterol in LDL [Mass/Vol] 56 mg/dL 0-130 [facility] Serum or plasma urea nitroge n measurement (mass/volume)Ordered By: Renard Burgos on 03-06-2023 Urea nitrogen [Mass/Vol] 17 mg/dL 7-18 [facility] Thin prep Papanicolaou smear with manual screeningOrdered By: Renard Burgos on 03-06-2023 Thin prep Papanicolaou smear with manual screening 10 U/L 15-37 [facility] Thin prep Papanicolaou smear with manual screening 4 5-15 [facility] Absolute lymphocyte countOrd ered By: Renard Burgos on 02-27-2023 Lymphocytes Auto (Unsp spec) [#/Vol] 2.13 10*3/uL 0.83-4.51 [facility] Basophil percentageOrdered B y: Renard Burgos on 02-27-2023 Basophils/100 WBC (Bld) 0.6 % 0-1 [facility] Eosinophils/100 WBC (Bld) 0.6 % 0-5 [facility] Neutrophils (Bld) [#/Vol] 5.1 10*3/uL 2.0-7.7 [facility] Neutrophils/100 WBC (Bld) 63.3 % 47-70 [facility] WBC (Bld) [#/Vol] 8.1 10*3/uL 4.4-11.0 [facility] Blood erythrocytes count (nu mber/volume)Ordered By: Renard Burgos on 02-27-2023 RBC (Bld) [#/Vol] 4.54 10*6/uL 4.6-6.2 [facility] Blood hemoglobin measurement (mass/volume)Ordered By: Renard Burgos on 02-27-2023 Hemoglobin (Bld) [Mass/Vol] 13.7 g/dL 13.0-16.5 [facility] Blood lymphocytes/100 leukoc ytesOrdered By: Renard Burgos on 02-27-2023 Lymphocytes/100 WBC (Bld) 26.4 % 19-41 [facility] Blood monocytes/100 leukocyt esOrdered By: Renard Burgos on 02-27-2023 Monocytes/100 WBC (Bld) 8.7 % 0-10 [facility] Blood platelet mean volumeOr dered By: Renard Burgos on 02-27-2023 Platelet mean volume (Bld) [Entitic vol] 10.8 fL 6.2-12.0 [facility] Determination of erythrocyte mean corpuscular volume (MCV)Ordered By: Renard Burgos on 02-27-2023 MCV (RBC) [Entitic vol] 89.9 fL 80-94 [facility] Hematocrit Auto (Bld) [Volum e fraction]Ordered By: Renard Burgos on 02-27-2023 Hematocrit (Bld) [Volume fraction] 40.8 % 40-54 [facility] - Hematology and Cell countsOrdered By: Renard Burgos on 02-27-2023 Erythrocyte distribution width (RBC) [Entitic vol] 41.0 fL 35.1-43.9 [facility] Erythrocyte distribution width (RBC) [Ratio] 12.5 % 11.6-14.6 [facility] Immature granulocytes/100 WBC (Bld) 0.400 % 0.0-0.9 [facility] Comment on above: IG% - Immature Granu locytes (promyelocytes, myelocytes and metamyelocytes) > 1% indicates that a LEFT SHIFT is Present. MCH (RBC) [Entitic mass] 30.2 pg 27.0-32.0 [facility] Nucleated RBC/100 WBC (Bld) [Ratio] 0 % 0-5 [facility] MCHC Auto (RBC) [Mass/Vol]Or dered By: Renard Burgos on 02-27-2023 MCHC (RBC) [Mass/Vol] 33.6 g/dL 32-36 [facility] Platelets bldOrdered By: Lyubov Burgos on 02-27-2023 Platelets (Bld) [#/Vol] 182 10*3/uL 150-450 [facility] Absolute lymphocyte countOrd ered By: Renard Burgos on 02-20-2023 Lymphocytes Auto (Unsp spec) [#/Vol] 2.23 10*3/uL 0.83-4.51 [facility] Basophil percentageOrdered B y: Renard Burgos on 02-20-2023 Basophils/100 WBC (Bld) 0.3 % 0-1 [facility] Eosinophils/100 WBC (Bld) 0.7 % 0-5 [facility] Neutrophils (Bld) [#/Vol] 5.9 10*3/uL 2.0-7.7 [facility] Neutrophils/100 WBC (Bld) 65.7 % 47-70 [facility] WBC (Bld) [#/Vol] 9.0 10*3/uL 4.4-11.0 [facility] Blood erythrocytes count (nu mber/volume)Ordered By: Renard Burgos on 02-20-2023 RBC (Bld) [#/Vol] 4.46 10*6/uL 4.6-6.2 [facility] Blood hemoglobin measurement (mass/volume)Ordered By: Renard Burgos on 02-20-2023 Hemoglobin (Bld) [Mass/Vol] 13.3 g/dL 13.0-16.5 [facility] Blood lymphocytes/100 leukoc ytesOrdered By: Renard Burgos on 02-20-2023 Lymphocytes/100 WBC (Bld) 24.7 % 19-41 [facility] Blood monocytes/100 leukocyt esOrdered By: Renard Burgos on 02-20-2023 Monocytes/100 WBC (Bld) 8.0 % 0-10 [facility] Blood platelet mean volumeOr dered By: Renard Burgos on 02-20-2023 Platelet mean volume (Bld) [Entitic vol] 10.7 fL 6.2-12.0 [facility] Determination of erythrocyte mean corpuscular volume (MCV)Ordered By: Renard Burgos on 02-20-2023 MCV (RBC) [Entitic vol] 90.6 fL 80-94 [facility] Hematocrit Auto (Bld) [Volum e fraction]Ordered By: Renard Burgos on 02-20-2023 Hematocrit (Bld) [Volume fraction] 40.4 % 40-54 [facility] Laboratory - Hematology and Cell countsOrdered By: Renard Burgos on 02-20-2023 Erythrocyte distribution width (RBC) [Entitic vol] 41.9 fL 35.1-43.9 [facility] Erythrocyte distribution width (RBC) [Ratio] 12.8 % 11.6-14.6 [facility] Immature granulocytes/100 WBC (Bld) 0.600 % 0.0-0.9 [facility] Comment on above: IG% - Immature Granu locytes (promyelocytes, myelocytes and metamyelocytes) > 1% indicates that a LEFT SHIFT is Present. MCH (RBC) [Entitic mass] 29.8 pg 27.0-32.0 [facility] Nucleated RBC/100 W[facility] (Bld) [Ratio] 0 % [facility] [Mass/Vol]Or dered By: Renard Burgos on 02-20-2023 MCHC (RBC) [Mass/Vol] 32.9 g/dL 32-36 [facility] Platelets bldOrdered By: Lyubov Burgos on 02-20-2023 Platelets (Bld) [#/Vol] 220 10*3/uL 150-450 [facility] Absolute lymphocyte countOrd ered By: Renard Burgos on 02-13-2023 Lymphocytes Auto (Unsp spec) [#/Vol] 2.01 10*3/uL 0.83-4.51 [facility] Basophil percentageOrdered B y: Renard Burgos on 02-13-2023 Basophils/100 WBC (Bld) 0.7 % 0-1 [facility] Eosinophils/100 WBC (Bld) 0.5 % 0-5 [facility] Neutrophils (Bld) [#/Vol] 4.7 10*3/uL 2.0-7.7 [facility] Neutrophils/100 WBC (Bld) 63.3 % 47-70 [facility] WBC (Bld) [#/Vol] 7.4 10*3/uL 4.4-11.0 [facility] Blood erythrocytes count (nu mber/volume)Ordered By: Renard Burgos on 02-13-2023 RBC (Bld) [#/Vol] 4.46 10*6/uL 4.6-6.2 [facility] Blood hemoglobin measurement (mass/volume)Ordered By: Renard Burgos on 02-13-2023 Hemoglobin (Bld) [Mass/Vol] 13.6 g/dL 13.0-16.5 [facility] Blood lymphocytes/100 leukoc ytesOrdered By: Renard Burgos on 02-13-2023 Lymphocytes/100 WBC (Bld) 27.0 % 19-41 [facility] Blood monocytes/100 leukocyt esOrdered By: Renard Burgos on 02-13-2023 Monocytes/100 WBC (Bld) 8.1 % 0-10 [facility] Blood platelet mean volumeOr dered By: Renard Burgos on 02-13-2023 Platelet mean volume (Bld) [Entitic vol] 10.7 fL 6.2-12.0 [facility] Determination of erythrocyte mean corpuscular volume (MCV)Ordered By: Renard Burgos on 02-13-2023 MCV (RBC) [Entitic vol] 92.6 fL 80-94 [facility] Hematocrit Auto (Bld) [Volum e fraction]Ordered By: Renard Burgos on 02-13-2023 Hematocrit (Bld) [Volume fraction] 41.3 % 40-54 [facility] Laboratory - Hematology and Cell countsOrdered By: Renard Burgos on 02-13-2023 Erythrocyte distribution width (RBC) [Entitic vol] 42.7 fL 35.1-43.9 [facility] Erythrocyte distribution width (RBC) [Ratio] 12.6 % 11.6-14.6 [facility] Immature granulocytes/100 WBC (Bld) 0.400 % 0.0-0.9 [facility] Comment on above: IG% - Immature Granu locytes (promyelocytes, myelocytes and metamyelocytes) > 1% indicates that a LEFT SHIFT is Present. MCH (RBC) [Entitic mass] 30.5 pg 27.0-32.0 [facility] Nucleated RBC/100 WBC (Bld) [Ratio] 0 % 0-5 [facility] MCHC Auto (RBC) [Mass/Vol]Or dered By: Renard Burgos on 02-13-2023 MCHC (RBC) [Mass/Vol] 32.9 g/dL 32-36 [facility] Platelets bldOrdered By: Lyubov Burgos on 02-13-2023 Platelets (Bld) [#/Vol] 187 10*3/uL 150-450 [facility] Absolute lymphocyte countOrd ered By: Renard Burgos on 02-06-2023 Lymphocytes Auto (Unsp spec) [#/Vol] 2.28 10*3/uL 0.83-4.51 [facility] Basophil percentageOrdered B y: Renard Burgos on 02-06-2023 Basophils/100 WBC (Bld) 0.5 % 0-1 [facility] Eosinophils/100 WBC (Bld) 0.7 % 0-5 [facility] Neutrophils (Bld) [#/Vol] 5.5 10*3/uL 2.0-7.7 [facility] Neutrophils/100 WBC (Bld) 63.7 % 47-70 [facility] WBC (Bld) [#/Vol] 8.6 10*3/uL 4.4-11.0 [facility] Blood erythrocytes count (nu mber/volume)Ordered By: Renard Burgos on 02-06-2023 RBC (Bld) [#/Vol] 4.71 10*6/uL 4.6-6.2 [facility] Blood hemoglobin measurement (mass/volume)Ordered By: Renard Burgos on 02-06-2023 Hemoglobin (Bld) [Mass/Vol] 14.1 g/dL 13.0-16.5 [facility] Blood lymphocytes/100 leukoc ytesOrdered By: Renard Burgos on 02-06-2023 Lymphocytes/100 WBC (Bld) 26.4 % 19-41 [facility] Blood monocytes/100 leukocyt esOrdered By: Renard Burgos on 02-06-2023 Monocytes/100 WBC (Bld) 8.2 % 0-10 [facility] Blood platelet mean volumeOr dered By: Renard Burgos on 02-06-2023 Platelet mean volume (Bld) [Entitic vol] 11.0 fL 6.2-12.0 [facility] Determination of erythrocyte mean corpuscular volume (MCV)Ordered By: Renard Burgos on 02-06-2023 MCV (RBC) [Entitic vol] 94.5 fL 80-94 [facility] Hematocrit Auto (Bld) [Volum e fraction]Ordered By: Renard Burgos on 02-06-2023 Hematocrit (Bld) [Volume fraction] 44.5 % 40-54 [facility] Laboratory - Hematology and Cell countsOrdered By: Renard Burgos on 02-06-2023 Erythrocyte distribution width (RBC) [Entitic vol] 43.5 fL 35.1-43.9 [facility] Erythrocyte distribution width (RBC) [Ratio] 12.7 % 11.6-14.6 [facility] Immature granulocytes/100 WBC (Bld) 0.500 % 0.0-0.9 [facility] Comment on above: IG% - Immature Granu locytes (promyelocytes, myelocytes and metamyelocytes) > 1% indicates that a LEFT SHIFT is Present. MCH (RBC) [Entitic mass] 29.9 pg 27.0-32.0 [facility] Nucleated RBC/100 WBC (Bld) [Ratio] 0 % 0-5 [facility] MCHC Auto (RBC) [Mass/Vol]Or dered By: Renard Burgos on 02-06-2023 MCHC (RBC) [Mass/Vol] 31.7 g/dL 32-36 [facility] Platelets bldOrdered By: Pet lizy Burgos on 02-06-2023 Platelets (Bld) [#/Vol] 196 10*3/uL 150-450 [facility] Absolute lymphocyte countOrd ered By: Renard Burgos on 01-30-2023 Lymphocytes Auto (Unsp spec) [#/Vol] 1.91 10*3/uL 0.83-4.51 [facility] Basophil percentageOrdered B y: Renard Burgos on 01-30-2023 Basophils/100 WBC (Bld) 0.5 % 0-1 [facility] Eosinophils/100 WBC (Bld) 0.5 % 0-5 [facility] Neutrophils (Bld) [#/Vol] 6.0 10*3/uL 2.0-7.7 [facility] Neutrophils/100 WBC (Bld) 69.4 % 47-70 [facility] WBC (Bld) [#/Vol] 8.7 10*3/uL 4.4-11.0 [facility] Basophil percentage 0 SEEN /hpf 0-5 [facility] Bilirubin Test strip Ql (U)O rdered By: Renard Burgos on 01-30-2023 Bilirubin Ql (U) Negative Negative [facility] Blood erythrocytes count (nu mber/volume)Ordered By: Renard Burgos on 01-30-2023 RBC (Bld) [#/Vol] 4.50 10*6/uL 4.6-6.2 [facility] Blood hemoglobin measurement (mass/volume)Ordered By: Renard Burgos on 01-30-2023 Hemoglobin (Bld) [Mass/Vol] 13.5 g/dL 13.0-16.5 [facility] Blood lymphocytes/100 leukoc ytesOrdered By: Renard Burgos on 01-30-2023 Lymphocytes/100 WBC (Bld) 22.1 % 19-41 [facility] Blood monocytes/100 leukocyt esOrdered By: Renard Burgos on 01-30-2023 Monocytes/100 WBC (Bld) 7.2 % 0-10 [facility] Blood platelet mean volumeOr dered By: Renard Burgos on 01-30-2023 Platelet mean volume (Bld) [Entitic vol] 11.1 fL 6.2-12.0 [facility] Culture, urineOrdered By: Garrick Bhatt on 01-30-2023 Bacteria identified Cx Nom (U) Positive [facility] Determination of erythrocyte mean corpuscular volume (MCV)Ordered By: Renard Burgos on 01-30-2023 MCV (RBC) [Entitic vol] 91.3 fL 80-94 [facility] Hematocrit Auto (Bld) [Volum e fraction]Ordered By: Renard Burgos on 01-30-2023 Hematocrit (Bld) [Volume fraction] 41.1 % 40-54 [facility] Ketones Test strip Ql (U)Ord ered By: Renard Burgos on 01-30-2023 Ketones Ql (U) Negative Negative [facility] Laboratory - Hematology and Cell countsOrdered By: Renard Burgos on 01-30-2023 Erythrocyte distribution width (RBC) [Entitic vol] 41.4 fL 35.1-43.9 [facility] Erythrocyte distribution width (RBC) [Ratio] 12.6 % 11.6-14.6 [facility] Immature granulocytes/100 WBC (Bld) 0.300 % 0.0-0.9 [facility] Comment on above: IG% - Immature Granu locytes (promyelocytes, myelocytes and metamyelocytes) > 1% indicates that a LEFT SHIFT is Present. MCH (RBC) [Entitic mass] 30.0 pg 27.0-32.0 [facility] Nucleated RBC/100 WBC (Bld) [Ratio] 0 % 0-5 [facility] MCHC Auto (RBC) [Mass/Vol]Or dered By: Renard Burgos on 01-30-2023 MCHC (RBC) [Mass/Vol] 32.8 g/dL 32-36 [facility] Mucus LM Ql (Urine sed)Order ed By: Renard Burgos on 01-30-2023 Mucus Ql (Urine sed) 0 SEEN /hpf [facility] Nitrite Test strip Ql (U)Ord ered By: Renard Burgos on 01-30-2023 Nitrite Ql (U) Negative Negative [facility] No Panel InformationOrdered By: Renard Burgos on 01-30-2023 Prostate Specific Antigen Screen 4.18 ng/mL 0.00-4.00 [facility] Comment on above: This test was perfor med using the TPSA assay method for [employer] chemistry system. Values obtained with differentassay methods cannot be used interchangably.When changing PSA assays in the course of monitoring apatient, additional sequential testing should be carriedout to confirm baseline values. Platelets bldOrdered By: Lyubov Burgos on 01-30-2023 Platelets (Bld) [#/Vol] 205 10*3/uL 150-450 [facility] Protein Test strip Ql (U)Ord ered By: Renard Burgos on 01-30-2023 Protein Ql (U) Negative Negative [facility] Squamous epithelial cells de tection in urine sediment by light microscopyOrdered By: Renard Burgos on 01-30-2023 Epithelial cells.squamous LM Ql (Urine sed) 0-5 SEEN /hpf 0-5 [facility] Urine blood detectionOrdered By: Renard Burgos on 01-30-2023 RBC Ql (U) Negative Negative [facility] RBC Ql (U) 0 SEEN /hpf 0-5 [facility] Urine clarityOrdered By: Lyubov Burgos on 01-30-2023 Clarity (U) Clear Clear [facility] Urine color determinationOrd ered By: Renard Burgos on 01-30-2023 Color (U) Yellow Yellow [facility] Urine glucose detectionOrder ed By: Renard Burgos on 01-30-2023 Glucose Ql (U) Normal mg/dl Normal [facility] Urine leukocyte esterase det ection by dipstickOrdered By: Renard Burgos on 01-30-2023 Leukocyte esterase Test strip Ql (U) Negative Negative [facility] Urine pHOrdered By: Renard ocampo on 01-30-2023 pH (U) 8.0 [pH] 5.0 - 8.0 [facility] Urine sediment bacteria coun t by microscopy (number/high power field)Ordered By: Renard Burgos on 01-30-2023 Bacteria LM.HPF (Urine sed) [#/Area] 0 /[HPF] None Seen [facility] Urine specific gravity measu rementOrdered By: Renard Burgos on 01-30-2023 Specific gravity (U) [Rel density] 1.010 1.002-1.030 [facility] Urobilinogen Auto test strip Ql (U)Ordered By: Renard Burgos on 01-30-2023 Urobilinogen Ql (U) Normal mg/dl Normal [facility] Absolute lymphocyte countOrd ered By: Renard Burgos on 01-23-2023 Lymphocytes Auto (Unsp spec) [#/Vol] 2.32 10*3/uL 0.83-4.51 [facility] Basophil percentageOrdered B y: Renard Burgos on 01-23-2023 Basophils/100 WBC (Bld) 0.6 % 0-1 [facility] Eosinophils/100 WBC (Bld) 0.4 % 0-5 [facility] Neutrophils (Bld) [#/Vol] 5.3 10*3/uL 2.0-7.7 [facility] Neutrophils/100 WBC (Bld) 62.7 % 47-70 [facility] WBC (Bld) [#/Vol] 8.4 10*3/uL 4.4-11.0 [facility] Blood erythrocytes count (nu mber/volume)Ordered By: Renard Burgos on 01-23-2023 RBC (Bld) [#/Vol] 4.49 10*6/uL 4.6-6.2 [facility] Blood hemoglobin measurement (mass/volume)Ordered By: Renard Burgos on 01-23-2023 Hemoglobin (Bld) [Mass/Vol] 13.6 g/dL 13.0-16.5 [facility] Blood lymphocytes/100 leukoc ytesOrdered By: Renard Burgos on 01-23-2023 Lymphocytes/100 WBC (Bld) 27.5 % 19-41 [facility] Blood monocytes/100 leukocyt esOrdered By: Renard Burgos on 01-23-2023 Monocytes/100 WBC (Bld) 8.2 % 0-10 [facility] Blood platelet mean volumeOr dered By: Renard Burgos on 01-23-2023 Platelet mean volume (Bld) [Entitic vol] 10.9 fL 6.2-12.0 [facility] Determination of erythrocyte mean corpuscular volume (MCV)Ordered By: Renard Burgos on 01-23-2023 MCV (RBC) [Entitic vol] 93.1 fL 80-94 [facility] Hematocrit Auto (Bld) [Volum e fraction]Ordered By: Renard Burgos on 01-23-2023 Hematocrit (Bld) [Volume fraction] 41.8 % 40-54 [facility] Laboratory - Hematology and Cell countsOrdered By: Renard Burgos on 01-23-2023 Erythrocyte distribution width (RBC) [Entitic vol] 42.7 fL 35.1-43.9 [facility] Erythrocyte distribution width (RBC) [Ratio] 12.6 % 11.6-14.6 [facility] Immature granulocytes/100 WBC (Bld) 0.600 % 0.0-0.9 [facility] Comment on above: IG% - Immature Granu locytes (promyelocytes, myelocytes and metamyelocytes) > 1% indicates that a LEFT SHIFT is Present. MCH (RBC) [Entitic mass] 30.3 pg 27.0-32.0 [facility] Nucleated RBC/100 WBC (Bld) [Ratio] 0 % 0-5 [facility] MCHC Auto (RBC) [Mass/Vol]Or dered By: Renard Burgos on 01-23-2023 MCHC (RBC) [Mass/Vol] 32.5 g/dL 32-36 [facility] Platelets bldOrdered By: Lyubov Burgos on 01-23-2023 Platelets (Bld) [#/Vol] 220 10*3/uL 150-450 [facility] Absolute lymphocyte countOrd ered By: Renard Burgos on 01-16-2023 Lymphocytes Auto (Unsp spec) [#/Vol] 1.80 10*3/uL 0.83-4.51 [facility] Basophil percentageOrdered B y: Renard Burgos on 01-16-2023 Basophils/100 WBC (Bld) 0.4 % 0-1 [facility] Eosinophils/100 WBC (Bld) 0.4 % 0-5 [facility] Neutrophils (Bld) [#/Vol] 7.2 10*3/uL 2.0-7.7 [facility] Neutrophils/100 WBC (Bld) 73.5 % 47-70 [facility] WBC (Bld) [#/Vol] 9.8 10*3/uL 4.4-11.0 [facility] Blood erythrocytes count (nu mber/volume)Ordered By: Renard Burgos on 01-16-2023 RBC (Bld) [#/Vol] 4.77 10*6/uL 4.6-6.2 [facility] Blood hemoglobin measurement (mass/volume)Ordered By: Renard Burgos on 01-16-2023 Hemoglobin (Bld) [Mass/Vol] 14.1 g/dL 13.0-16.5 [facility] Blood lymphocytes/100 leukoc ytesOrdered By: Renard Burgos on 01-16-2023 Lymphocytes/100 WBC (Bld) 18.4 % 19-41 [facility] Blood monocytes/100 leukocyt esOrdered By: Renard Burgos on 01-16-2023 Monocytes/100 WBC (Bld) 6.9 % 0-10 [facility] Blood platelet mean volumeOr dered By: Renard Burgos on 01-16-2023 Platelet mean volume (Bld) [Entitic vol] 10.6 fL 6.2-12.0 [facility] Determination of erythrocyte mean corpuscular volume (MCV)Ordered By: Renard Burgos on 01-16-2023 MCV (RBC) [Entitic vol] 92.5 fL 80-94 [facility] Hematocrit Auto (Bld) [Volum e fraction]Ordered By: Renard Burgos on 01-16-2023 Hematocrit (Bld) [Volume fraction] 44.1 % 40-54 [facility] Laboratory - Hematology and Cell countsOrdered By: Renard Burgos on 01-16-2023 Erythrocyte distribution width (RBC) [Entitic vol] 41.8 fL 35.1-43.9 [facility] Erythrocyte distribution width (RBC) [Ratio] 12.4 % 11.6-14.6 [facility] Immature granulocytes/100 WBC (Bld) 0.400 % 0.0-0.9 [facility] Comment on above: IG% - Immature Granu locytes (promyelocytes, myelocytes and metamyelocytes) > 1% indicates that a LEFT SHIFT is Present. MCH (RBC) [Entitic mass] 29.6 pg 27.0-32.0 [facility] Nucleated RBC/100 WBC (Bld) [Ratio] 0 % 0-5 [facility] MCHC Auto (RBC) [Mass/Vol]Or dered By: Renard Burgos on 01-16-2023 MCHC (RBC) [Mass/Vol] 32.0 g/dL 32-36 [facility] Platelets bldOrdered By: Lyubov Burgos on 01-16-2023 Platelets (Bld) [#/Vol] 221 10*3/uL 150-450 [facility] Absolute lymphocyte countOrd ered By: Renard Burgos on 01-09-2023 Lymphocytes Auto (Unsp spec) [#/Vol] 2.41 10*3/uL 0.83-4.51 [facility] Basophil percentageOrdered B y: Renard Burgos on 01-09-2023 Basophils/100 WBC (Bld) 0.7 % 0-1 [facility] Eosinophils/100 WBC (Bld) 0.8 % 0-5 [facility] Neutrophils (Bld) [#/Vol] 5.4 10*3/uL 2.0-7.7 [facility] Neutrophils/100 WBC (Bld) 60.5 % 47-70 [facility] WBC (Bld) [#/Vol] 8.9 10*3/uL 4.4-11.0 [facility] Blood erythrocytes count (nu mber/volume)Ordered By: Renard Burgos on 01-09-2023 RBC (Bld) [#/Vol] 4.56 10*6/uL 4.6-6.2 [facility] Blood hemoglobin measurement (mass/volume)Ordered By: Renard Burgos on 01-09-2023 Hemoglobin (Bld) [Mass/Vol] 13.8 g/dL 13.0-16.5 [facility] Blood lymphocytes/100 leukoc ytesOrdered By: Renard Burgos on 01-09-2023 Lymphocytes/100 WBC (Bld) 27.0 % 19-41 [facility] Blood monocytes/100 leukocyt esOrdered By: Renard Burgos on 01-09-2023 Monocytes/100 WBC (Bld) 10.7 % 0-10 [facility] Blood platelet mean volumeOr dered By: Renard Burgos on 01-09-2023 Platelet mean volume (Bld) [Entitic vol] 10.8 fL 6.2-12.0 [facility] Determination of erythrocyte mean corpuscular volume (MCV)Ordered By: Renard Burgos on 01-09-2023 MCV (RBC) [Entitic vol] 92.5 fL 80-94 [facility] Hematocrit Auto (Bld) [Volum e fraction]Ordered By: Renard Burgos on 01-09-2023 Hematocrit (Bld) [Volume fraction] 42.2 % 40-54 [facility] Laboratory - Hematology and Cell countsOrdered By: Renard Burgos on 01-09-2023 Erythrocyte distribution width (RBC) [Entitic vol] 42.7 fL 35.1-43.9 [facility] Erythrocyte distribution width (RBC) [Ratio] 12.5 % 11.6-14.6 [facility] Immature granulocytes/100 WBC (Bld) 0.300 % 0.0-0.9 [facility] Comment on above: IG% - Immature Granu locytes (promyelocytes, myelocytes and metamyelocytes) > 1% indicates that a LEFT SHIFT is Present. MCH (RBC) [Entitic mass] 30.3 pg 27.0-32.0 [facility] Nucleated RBC/100 WBC (Bld) [Ratio] 0 % 0-5 [facility] MCHC Auto (RBC) [Mass/Vol]Or dered By: Renard Burgos on 01-09-2023 MCHC (RBC) [Mass/Vol] 32.7 g/dL 32-36 [facility] Platelets bldOrdered By: Lyubov Burgos on 01-09-2023 Platelets (Bld) [#/Vol] 209 10*3/uL 150-450 [facility] Absolute lymphocyte countOrd ered By: Renard Burgos on 01-03-2023 Lymphocytes Auto (Unsp spec) [#/Vol] 2.18 10*3/uL 0.83-4.51 [facility] Basophil percentageOrdered B y: Renard Burgos on 01-03-2023 Basophils/100 WBC (Bld) 0.6 % 0-1 [facility] Eosinophils/100 WBC (Bld) 0.5 % 0-5 [facility] Neutrophils (Bld) [#/Vol] 5.4 10*3/uL 2.0-7.7 [facility] Neutrophils/100 WBC (Bld) 64.2 % 47-70 [facility] WBC (Bld) [#/Vol] 8.4 10*3/uL 4.4-11.0 [facility] Blood erythrocytes count (nu mber/volume)Ordered By: Renard Burgos on 01-03-2023 RBC (Bld) [#/Vol] 4.59 10*6/uL 4.6-6.2 [facility] Blood hemoglobin measurement (mass/volume)Ordered By: Renard Burgos on 01-03-2023 Hemoglobin (Bld) [Mass/Vol] 13.9 g/dL 13.0-16.5 [facility] Blood lymphocytes/100 leukoc ytesOrdered By: Renard Burgos on 01-03-2023 Lymphocytes/100 WBC (Bld) 25.9 % 19-41 [facility] Blood monocytes/100 leukocyt esOrdered By: Renard Burgos on 01-03-2023 Monocytes/100 WBC (Bld) 8.3 % 0-10 [facility] Blood platelet mean volumeOr dered By: Renard Burgos on 01-03-2023 Platelet mean volume (Bld) [Entitic vol] 11.0 fL 6.2-12.0 [facility] Determination of erythrocyte mean corpuscular volume (MCV)Ordered By: Renard Burgos on 01-03-2023 MCV (RBC) [Entitic vol] 92.8 fL 80-94 [facility] Hematocrit Auto (Bld) [Volum e fraction]Ordered By: Renard Burgos on 01-03-2023 Hematocrit (Bld) [Volume fraction] 42.6 % 40-54 [facility] - Hematology and Cell countsOrdered By: Renard Burgos on 01-03-2023 Erythrocyte distribution width (RBC) [Entitic vol] 42.5 fL 35.1-43.9 [facility] Erythrocyte distribution width (RBC) [Ratio] 12.6 % 11.6-14.6 [facility] Immature granulocytes/100 WBC (Bld) 0.500 % 0.0-0.9 [facility] Comment on above: IG% - Immature Granu locytes (promyelocytes, myelocytes and metamyelocytes) > 1% indicates that a LEFT SHIFT is Present. MCH (RBC) [Entitic mass] 30.3 pg 27.0-32.0 [facility] Nucleated RBC/100 WBC (Bld) [Ratio] 0 % 0-5 [facility] MCHC Auto (RBC) [Mass/Vol]Or dered By: Renard Burgos on 01-03-2023 MCHC (RBC) [Mass/Vol] 32.6 g/dL 32-36 [facility] No Panel InformationOrdered By: Renard Burgos on 01-03-2023 Prostate Specific Antigen Screen 3.37 ng/mL 0.00-4.00 [facility] Comment on above: This test was perfor med using the TPSA assay method for [employer] chemistry system. Values obtained with differentassay methods cannot be used interchangably.When changing PSA assays in the course of monitoring apatient, additional sequential testing should be carriedout to confirm baseline values. Platelets bldOrdered By: Lyubov Burgos on 01-03-2023 Platelets (Bld) [#/Vol] 200 10*3/uL 150-450 [facility] Absolute lymphocyte countOrd ered By: Renard Burgos on 12-26-2022 Lymphocytes Auto (Unsp spec) [#/Vol] 1.80 10*3/uL 0.83-4.51 [facility] Basophil percentageOrdered B y: Renard Burgos on 12-26-2022 Basophils/100 WBC (Bld) 0.4 % 0-1 [facility] Eosinophils/100 WBC (Bld) 0.6 % 0-5 [facility] Neutrophils (Bld) [#/Vol] 6.2 10*3/uL 2.0-7.7 [facility] Neutrophils/100 WBC (Bld) 69.8 % 47-70 [facility] WBC (Bld) [#/Vol] 8.9 10*3/uL 4.4-11.0 [facility] Blood erythrocytes count (nu mber/volume)Ordered By: Renard Burgos on 12-26-2022 RBC (Bld) [#/Vol] 4.58 10*6/uL 4.6-6.2 [facility] Blood hemoglobin measurement (mass/volume)Ordered By: Renard Burgos on 12-26-2022 Hemoglobin (Bld) [Mass/Vol] 14.0 g/dL 13.0-16.5 [facility] Blood lymphocytes/100 leukoc ytesOrdered By: Renard Burgos on 12-26-2022 Lymphocytes/100 WBC (Bld) 20.2 % 19-41 [facility] Blood monocytes/100 leukocyt esOrdered By: Renard Burgos on 12-26-2022 Monocytes/100 WBC (Bld) 8.6 % 0-10 [facility] Blood platelet mean volumeOr dered By: Renard Burgos on 12-26-2022 Platelet mean volume (Bld) [Entitic vol] 10.8 fL 6.2-12.0 [facility] Determination of erythrocyte mean corpuscular volume (MCV)Ordered By: Renard Burgos on 12-26-2022 MCV (RBC) [Entitic vol] 93.2 fL 80-94 [facility] Hematocrit Auto (Bld) [Volum e fraction]Ordered By: Renard Burgos on 12-26-2022 Hematocrit (Bld) [Volume fraction] 42.7 % 40-54 [facility] Laboratory - Hematology and Cell countsOrdered By: Renard Burgos on 12-26-2022 Erythrocyte distribution width (RBC) [Entitic vol] 42.5 fL 35.1-43.9 [facility] Erythrocyte distribution width (RBC) [Ratio] 12.5 % 11.6-14.6 [facility] Immature granulocytes/100 WBC (Bld) 0.400 % 0.0-0.9 [facility] Comment on above: IG% - Immature Granu locytes (promyelocytes, myelocytes and metamyelocytes) > 1% indicates that a LEFT SHIFT is Present. MCH (RBC) [Entitic mass] 30.6 pg 27.0-32.0 [facility] Nucleated RBC/100 WBC (Bld) [Ratio] 0 % 0-5 [facility] MCHC Auto (RBC) [Mass/Vol]Or dered By: Renard Burgos on 12-26-2022 MCHC (RBC) [Mass/Vol] 32.8 g/dL 32-36 [facility] Platelets bldOrdered By: Pet er Loretta on 12-26-2022 Platelets (Bld) [#/Vol] 200 10*3/uL 150-450 [facility] Absolute lymphocyte countOrd ered By: Renard Burgos on 12-19-2022 Lymphocytes Auto (Unsp spec) [#/Vol] 2.24 10*3/uL 0.83-4.51 [facility] Basophil percentageOrdered B y: Renard Burgos on 12-19-2022 Basophils/100 WBC (Bld) 0.3 % 0-1 [facility] Eosinophils/100 WBC (Bld) 0.8 % 0-5 [facility] Neutrophils (Bld) [#/Vol] 5.7 10*3/uL 2.0-7.7 [facility] Neutrophils/100 WBC (Bld) 64.1 % 47-70 [facility] WBC (Bld) [#/Vol] 8.9 10*3/uL 4.4-11.0 [facility] Blood erythrocytes count (nu mber/volume)Ordered By: Renard Burgos on 12-19-2022 RBC (Bld) [#/Vol] 4.44 10*6/uL 4.6-6.2 [facility] Blood hemoglobin measurement (mass/volume)Ordered By: Renard Burgos on 12-19-2022 Hemoglobin (Bld) [Mass/Vol] 13.5 g/dL 13.0-16.5 [facility] Blood lymphocytes/100 leukoc ytesOrdered By: Renard Burgos on 12-19-2022 Lymphocytes/100 WBC (Bld) 25.1 % 19-41 [facility] Blood monocytes/100 leukocyt esOrdered By: Renard Burgos on 12-19-2022 Monocytes/100 WBC (Bld) 9.4 % 0-10 [facility] Blood platelet mean volumeOr dered By: Renard Burgos on 12-19-2022 Platelet mean volume (Bld) [Entitic vol] 11.0 fL 6.2-12.0 [facility] Determination of erythrocyte mean corpuscular volume (MCV)Ordered By: Renard Burgos on 12-19-2022 MCV (RBC) [Entitic vol] 92.8 fL 80-94 [facility] Hematocrit Auto (Bld) [Volum e fraction]Ordered By: Renard Burgos on 12-19-2022 Hematocrit (Bld) [Volume fraction] 41.2 % 40-54 [facility] Laboratory - Hematology and Cell countsOrdered By: Renard Burgos on 12-19-2022 Erythrocyte distribution width (RBC) [Entitic vol] 43.2 fL 35.1-43.9 [facility] Erythrocyte distribution width (RBC) [Ratio] 12.7 % 11.6-14.6 [facility] Immature granulocytes/100 WBC (Bld) 0.300 % 0.0-0.9 [facility] Comment on above: IG% - Immature Granu locytes (promyelocytes, myelocytes and metamyelocytes) > 1% indicates that a LEFT SHIFT is Present. MCH (RBC) [Entitic mass] 30.4 pg 27.0-32.0 [facility] Nucleated RBC/100 WBC (Bld) [Ratio] 0 % 0-5 [facility] MCHC Auto (RBC) [Mass/Vol]Or dered By: Renard Burgos on 12-19-2022 MCHC (RBC) [Mass/Vol] 32.8 g/dL 32-36 [facility] Platelets bldOrdered By: Lyubov Burgos on 12-19-2022 Platelets (Bld) [#/Vol] 194 10*3/uL 150-450 [facility] Absolute lymphocyte countOrd ered By: Renard Burgos on 12-12-2022 Lymphocytes Auto (Unsp spec) [#/Vol] 2.33 10*3/uL 0.83-4.51 [facility] Basophil percentageOrdered B y: Renard Burgos on 12-12-2022 Basophils/100 WBC (Bld) 0.6 % 0-1 [facility] Eosinophils/100 WBC (Bld) 0.9 % 0-5 [facility] Neutrophils (Bld) [#/Vol] 5.8 10*3/uL 2.0-7.7 [facility] Neutrophils/100 WBC (Bld) 63.5 % 47-70 [facility] WBC (Bld) [#/Vol] 9.1 10*3/uL 4.4-11.0 [facility] Blood erythrocytes count (nu mber/volume)Ordered By: Renard Burgos on 12-12-2022 RBC (Bld) [#/Vol] 4.52 10*6/uL 4.6-6.2 [facility] Blood hemoglobin measurement (mass/volume)Ordered By: Renard Burgos on 12-12-2022 Hemoglobin (Bld) [Mass/Vol] 13.9 g/dL 13.0-16.5 [facility] Blood lymphocytes/100 leukoc ytesOrdered By: Renard Burgos on 12-12-2022 Lymphocytes/100 WBC (Bld) 25.6 % 19-41 [facility] Blood monocytes/100 leukocyt esOrdered By: Renard Burgos on 12-12-2022 Monocytes/100 WBC (Bld) 9.1 % 0-10 [facility] Blood platelet mean volumeOr dered By: Renard Burgos on 12-12-2022 Platelet mean volume (Bld) [Entitic vol] 10.9 fL 6.2-12.0 [facility] Determination of erythrocyte mean corpuscular volume (MCV)Ordered By: Renard Burgos on 12-12-2022 MCV (RBC) [Entitic vol] 94.2 fL 80-94 [facility] Hematocrit Auto (Bld) [Volum e fraction]Ordered By: Renard Burgos on 12-12-2022 Hematocrit (Bld) [Volume fraction] 42.6 % 40-54 [facility] Laboratory - Hematology and Cell countsOrdered By: Renard Burgos on 12-12-2022 Erythrocyte distribution width (RBC) [Entitic vol] 44.3 fL 35.1-43.9 [facility] Erythrocyte distribution width (RBC) [Ratio] 12.8 % 11.6-14.6 [facility] Immature granulocytes/100 WBC (Bld) 0.300 % 0.0-0.9 [facility] Comment on above: IG% - Immature Granu locytes (promyelocytes, myelocytes and metamyelocytes) > 1% indicates that a LEFT SHIFT is Present. MCH (RBC) [Entitic mass] 30.8 pg 27.0-32.0 [facility] Nucleated RBC/100 WBC (Bld) [Ratio] 0 % 0-5 [facility] MCHC Auto (RBC) [Mass/Vol]Or dered By: Renard Burgos on 12-12-2022 MCHC (RBC) [Mass/Vol] 32.6 g/dL 32-36 [facility] Platelets bldOrdered By: Lyubov Burgos on 12-12-2022 Platelets (Bld) [#/Vol] 211 10*3/uL 150-450 [facility] Absolute lymphocyte countOrd ered By: Renard Burgos on 12-05-2022 Lymphocytes Auto (Unsp spec) [#/Vol] 1.94 10*3/uL 0.83-4.51 [facility] Basophil percentageOrdered B y: Renard Burgos on 12-05-2022 Basophils/100 WBC (Bld) 0.4 % 0-1 [facility] Eosinophils/100 WBC (Bld) 0.9 % 0-5 [facility] Neutrophils (Bld) [#/Vol] 4.1 10*3/uL 2.0-7.7 [facility] Neutrophils/100 WBC (Bld) 61.2 % 47-70 [facility] WBC (Bld) [#/Vol] 6.7 10*3/uL 4.4-11.0 [facility] Blood erythrocytes count (nu mber/volume)Ordered By: Renard Burgos on 12-05-2022 RBC (Bld) [#/Vol] 4.39 10*6/uL 4.6-6.2 [facility] Blood hemoglobin measurement (mass/volume)Ordered By: Renard Burgos on 12-05-2022 Hemoglobin (Bld) [Mass/Vol] 13.3 g/dL 13.0-16.5 [facility] Blood lymphocytes/100 leukoc ytesOrdered By: Renard Burgos on 12-05-2022 Lymphocytes/100 WBC (Bld) 28.8 % 19-41 [facility] Blood monocytes/100 leukocyt esOrdered By: Renard Burgos on 12-05-2022 Monocytes/100 WBC (Bld) 8.3 % 0-10 [facility] Blood platelet mean volumeOr dered By: Renard Burgos on 12-05-2022 Platelet mean volume (Bld) [Entitic vol] 10.8 fL 6.2-12.0 [facility] Determination of erythrocyte mean corpuscular volume (MCV)Ordered By: Renard Burgos on 12-05-2022 MCV (RBC) [Entitic vol] 90.7 fL 80-94 [facility] Hematocrit Auto (Bld) [Volum e fraction]Ordered By: Renard Burgos on 12-05-2022 Hematocrit (Bld) [Volume fraction] 39.8 % 40-54 [facility] Laboratory - Hematology and Cell countsOrdered By: Renard Burgos on 12-05-2022 Erythrocyte distribution width (RBC) [Entitic vol] 41.8 fL 35.1-43.9 [facility] Erythrocyte distribution width (RBC) [Ratio] 12.6 % 11.6-14.6 [facility] Immature granulocytes/100 WBC (Bld) 0.400 % 0.0-0.9 [facility] Comment on above: IG% - Immature Granu locytes (promyelocytes, myelocytes and metamyelocytes) > 1% indicates that a LEFT SHIFT is Present. MCH (RBC) [Entitic mass] 30.3 pg 27.0-32.0 [facility] Nucleated RBC/100 WBC (Bld) [Ratio] 0 % 0-5 [facility] MCHC Auto (RBC) [Mass/Vol]Or dered By: Renard Burgos on 12-05-2022 MCHC (RBC) [Mass/Vol] 33.4 g/dL 32-36 [facility] Platelets bldOrdered By: Lyubov Burgos on 12-05-2022 Platelets (Bld) [#/Vol] 208 10*3/uL 150-450 [facility] Absolute lymphocyte countOrd ered By: Renard Burgos on 11-28-2022 Lymphocytes Auto (Unsp spec) [#/Vol] 2.07 10*3/uL 0.83-4.51 [facility] Basophil percentageOrdered B y: Renard Burgos on 11-28-2022 Basophils/100 WBC (Bld) 0.4 % 0-1 [facility] Eosinophils/100 WBC (Bld) 0.6 % 0-5 [facility] Neutrophils (Bld) [#/Vol] 5.1 10*3/uL 2.0-7.7 [facility] Neutrophils/100 WBC (Bld) 64.6 % 47-70 [facility] WBC (Bld) [#/Vol] 7.9 10*3/uL 4.4-11.0 [facility] Blood erythrocytes count (nu mber/volume)Ordered By: Renard Burgos on 11-28-2022 RBC (Bld) [#/Vol] 4.54 10*6/uL 4.6-6.2 [facility] Blood hemoglobin measurement (mass/volume)Ordered By: Renard Burgos on 11-28-2022 Hemoglobin (Bld) [Mass/Vol] 13.7 g/dL 13.0-16.5 [facility] Blood lymphocytes/100 leukoc ytesOrdered By: Renard Burgos on 11-28-2022 Lymphocytes/100 WBC (Bld) 26.2 % 19-41 [facility] Blood monocytes/100 leukocyt esOrdered By: Renard Burgos on 11-28-2022 Monocytes/100 WBC (Bld) 7.7 % 0-10 [facility] Blood platelet mean volumeOr dered By: Renard Burgos on 11-28-2022 Platelet mean volume (Bld) [Entitic vol] 10.6 fL 6.2-12.0 [facility] Determination of erythrocyte mean corpuscular volume (MCV)Ordered By: Renard Burgos on 11-28-2022 MCV (RBC) [Entitic vol] 93.6 fL 80-94 [facility] Hematocrit Auto (Bld) [Volum e fraction]Ordered By: Renard Burgos on 11-28-2022 Hematocrit (Bld) [Volume fraction] 42.5 % 40-54 [facility] - Hematology and Cell countsOrdered By: Renard Burgos on 11-28-2022 Erythrocyte distribution width (RBC) [Entitic vol] 43.5 fL 35.1-43.9 [facility] Erythrocyte distribution width (RBC) [Ratio] 12.7 % 11.6-14.6 [facility] Immature granulocytes/100 WBC (Bld) 0.500 % 0.0-0.9 [facility] Comment on above: IG% - Immature Granu locytes (promyelocytes, myelocytes and metamyelocytes) > 1% indicates that a LEFT SHIFT is Present. MCH (RBC) [Entitic mass] 30.2 pg 27.0-32.0 [facility] Nucleated RBC/100 WBC (Bld) [Ratio] 0 % 0-5 [facility] MCHC Auto (RBC) [Mass/Vol]Or dered By: Renard Burgos on 11-28-2022 MCHC (RBC) [Mass/Vol] 32.2 g/dL 32-36 [facility] Platelets bldOrdered By: Lyubov Burgos on 11-28-2022 Platelets (Bld) [#/Vol] 201 10*3/uL 150-450 [facility] Absolute lymphocyte countOrd ered By: Renard Burgos on 11-21-2022 Lymphocytes Auto (Unsp spec) [#/Vol] 2.32 10*3/uL 0.83-4.51 [facility] Basophil percentageOrdered B y: Renard Burgos on 11-21-2022 Basophils/100 WBC (Bld) 0.6 % 0-1 [facility] Eosinophils/100 WBC (Bld) 0.7 % 0-5 [facility] Neutrophils (Bld) [#/Vol] 5.0 10*3/uL 2.0-7.7 [facility] Neutrophils/100 WBC (Bld) 60.6 % 47-70 [facility] WBC (Bld) [#/Vol] 8.2 10*3/uL 4.4-11.0 [facility] Blood erythrocytes count (nu mber/volume)Ordered By: Renard Burgos on 11-21-2022 RBC (Bld) [#/Vol] 4.71 10*6/uL 4.6-6.2 [facility] Blood hemoglobin measurement (mass/volume)Ordered By: Renard Burgos on 11-21-2022 Hemoglobin (Bld) [Mass/Vol] 14.3 g/dL 13.0-16.5 [facility] Blood lymphocytes/100 leukoc ytesOrdered By: Renard Burgos on 11-21-2022 Lymphocytes/100 WBC (Bld) 28.2 % 19-41 [facility] Blood monocytes/100 leukocyt esOrdered By: Renard Burgos on 11-21-2022 Monocytes/100 WBC (Bld) 9.2 % 0-10 [facility] Blood platelet mean volumeOr dered By: Renard Burgos on 11-21-2022 Platelet mean volume (Bld) [Entitic vol] 10.4 fL 6.2-12.0 [facility] Determination of erythrocyte mean corpuscular volume (MCV)Ordered By: Renard Burgos on 11-21-2022 MCV (RBC) [Entitic vol] 91.9 fL 80-94 [facility] Hematocrit Auto (Bld) [Volum e fraction]Ordered By: Renard Burgos on 11-21-2022 Hematocrit (Bld) [Volume fraction] 43.3 % 40-54 [facility] - Hematology and Cell countsOrdered By: Renard Burgos on 11-21-2022 Erythrocyte distribution width (RBC) [Entitic vol] 43.1 fL 35.1-43.9 [facility] Erythrocyte distribution width (RBC) [Ratio] 12.8 % 11.6-14.6 [facility] Immature granulocytes/100 WBC (Bld) 0.700 % 0.0-0.9 [facility] Comment on above: IG% - Immature Granu locytes (promyelocytes, myelocytes and metamyelocytes) > 1% indicates that a LEFT SHIFT is Present. MCH (RBC) [Entitic mass] 30.4 pg 27.0-32.0 [facility] Nucleated RBC/100 WBC (Bld) [Ratio] 0 % 0-5 [facility] MCHC Auto (RBC) [Mass/Vol]Or dered By: Renard Burgos on 11-21-2022 MCHC (RBC) [Mass/Vol] 33.0 g/dL 32-36 [facility] Platelets bldOrdered By: Lyubov lizy Loretta on 11-21-2022 Platelets (Bld) [#/Vol] 219 10*3/uL 150-450 [facility] Absolute lymphocyte countOrd ered By: Renard Burgos on 11-14-2022 Lymphocytes Auto (Unsp spec) [#/Vol] 1.82 10*3/uL 0.83-4.51 [facility] Basophil percentageOrdered B y: Renard Burgos on 11-14-2022 Basophils/100 WBC (Bld) 0.4 % 0-1 [facility] Chloride [Moles/Vol] 107 mmol/L 98-107 [facility] Eosinophils/100 WBC (Bld) 0.4 % 0-5 [facility] Glucose [Mass/Vol] 121 mg/dL 74-106 [facility] Comment on above: Fasting Glucose resu lt from 100 to 125 mg/dL suggests IMPAIRED HOMEOSTASIS per A.D.A. criteria. Neutrophils (Bld) [#/Vol] 4.7 10*3/uL 2.0-7.7 [facility] Neutrophils/100 WBC (Bld) 66.6 % 47-70 [facility] Potassium [Moles/Vol] 3.7 mmol/L 3.5-5.1 [facility] Sodium [Moles/Vol] 141 mmol/L 136-145 [facility] WBC (Bld) [#/Vol] 7.1 10*3/uL 4.4-11.0 [facility] Blood erythrocytes count (nu mber/volume)Ordered By: Renard Burgos on 11-14-2022 RBC (Bld) [#/Vol] 4.35 10*6/uL 4.6-6.2 [facility] Blood hemoglobin measurement (mass/volume)Ordered By: Renard Burgos on 11-14-2022 Hemoglobin (Bld) [Mass/Vol] 13.6 g/dL 13.0-16.5 [facility] Blood lymphocytes/100 leukoc ytesOrdered By: Renard Burgos on 11-14-2022 Lymphocytes/100 WBC (Bld) 25.6 % 19-41 [facility] Blood monocytes/100 leukocyt esOrdered By: Renard Burgos on 11-14-2022 Monocytes/100 WBC (Bld) 6.6 % 0-10 [facility] Blood platelet mean volumeOr dered By: Renard Burgos on 11-14-2022 Platelet mean volume (Bld) [Entitic vol] 10.9 fL 6.2-12.0 [facility] Determination of erythrocyte mean corpuscular volume (MCV)Ordered By: Renard Burgos on 11-14-2022 MCV (RBC) [Entitic vol] 93.3 fL 80-94 [facility] Hematocrit Auto (Bld) [Volum e fraction]Ordered By: Renard Burgos on 11-14-2022 Hematocrit (Bld) [Volume fraction] 40.6 % 40-54 [facility] - Chemistry and C hemistry - challengeOrdered By: Renard Burgos on 11-14-2022 CO2 [Moles/Vol] 31.0 mmol/L 21.0-32.0 [facility] Urea nitrogen/Creatinine [Mass ratio] 26.0 mg/mg 10-20 [facility] - Hematology and Cell countsOrdered By: Renard Burgos on 11-14-2022 Erythrocyte distribution width (RBC) [Entitic vol] 43.9 fL 35.1-43.9 [facility] Erythrocyte distribution width (RBC) [Ratio] 12.8 % 11.6-14.6 [facility] Immature granulocytes/100 WBC (Bld) 0.400 % 0.0-0.9 [facility] Comment on above: IG% - Immature Granu locytes (promyelocytes, myelocytes and metamyelocytes) > 1% indicates that a LEFT SHIFT is Present. MCH (RBC) [Entitic mass] 31.3 pg 27.0-32.0 [facility] Nucleated RBC/100 WBC (Bld) [Ratio] 0 % 0-5 [facility] MCHC Auto (RBC) [Mass/Vol]Or dered By: Renard Burgos on 11-14-2022 MCHC (RBC) [Mass/Vol] 33.5 g/dL 32-36 [facility] No Panel InformationOrdered By: Renard Burgos on 11-14-2022 Estimated GFR (MDRD) Amer 147 mL/min >60 [facility] Comment on above: GFR Calc Estimated GFR (MDRD) Non-Af Amer 122 mL/min >60 [facility] Comment on above: Non- GFR Calc Platelets bldOrdered By: Lyubov Burgos on 11-14-2022 Platelets (Bld) [#/Vol] 202 10*3/uL 150-450 [facility] Serum or plasma calcium gordy urement (mass/volume)Ordered By: Renard Burgos on 11-14-2022 Calcium [Mass/Vol] 8.2 mg/dL 8.5-10.1 [facility] Serum or plasma creatinine m easurement (mass/volume)Ordered By: Renard Burgos on 11-14-2022 Creatinine [Mass/Vol] 0.69 mg/dL 0.70-1.30 [facility] Comment on above: The validity of the calculated GFR & GFRAA in patients over 70 years has not been determined. Clinical correlation is essential. Serum or plasma urea nitroge n measurement (mass/volume)Ordered By: Renard Burgos on 11-14-2022 Urea nitrogen [Mass/Vol] 18 mg/dL 7-18 [facility] Thin prep Papanicolaou smear with manual screeningOrdered By: Renard Burgos on 11-14-2022 Thin prep Papanicolaou smear with manual screening 3 5-15 [facility] Absolute lymphocyte countOrd ered By: Renard Burgos on 11-07-2022 Lymphocytes Auto (Unsp spec) [#/Vol] 1.99 10*3/uL 0.83-4.51 [facility] Basophil percentageOrdered B y: Renard Burgos on 11-07-2022 Basophils/100 WBC (Bld) 0.8 % 0-1 [facility] Eosinophils/100 WBC (Bld) 0.5 % 0-5 [facility] Neutrophils (Bld) [#/Vol] 5.1 10*3/uL 2.0-7.7 [facility] Neutrophils/100 WBC (Bld) 64.0 % 47-70 [facility] WBC (Bld) [#/Vol] 8.0 10*3/uL 4.4-11.0 [facility] Blood erythrocytes count (nu mber/volume)Ordered By: Renard Burgos on 11-07-2022 RBC (Bld) [#/Vol] 4.45 10*6/uL 4.6-6.2 [facility] Blood hemoglobin measurement (mass/volume)Ordered By: Renard Burgos on 11-07-2022 Hemoglobin (Bld) [Mass/Vol] 13.7 g/dL 13.0-16.5 [facility] Blood lymphocytes/100 leukoc ytesOrdered By: Renard Burgos on 11-07-2022 Lymphocytes/100 WBC (Bld) 25.0 % 19-41 [facility] Blood monocytes/100 leukocyt esOrdered By: Renard Burgos on 11-07-2022 Monocytes/100 WBC (Bld) 9.4 % 0-10 [facility] Blood platelet mean volumeOr dered By: Renard Burgos on 11-07-2022 Platelet mean volume (Bld) [Entitic vol] 10.7 fL 6.2-12.0 [facility] Determination of erythrocyte mean corpuscular volume (MCV)Ordered By: Renard Burgos on 11-07-2022 MCV (RBC) [Entitic vol] 91.5 fL 80-94 [facility] Hematocrit Auto (Bld) [Volum e fraction]Ordered By: Renard Burgos on 11-07-2022 Hematocrit (Bld) [Volume fraction] 40.7 % 40-54 [facility] - Hematology and Cell countsOrdered By: Renard Burgos on 11-07-2022 Erythrocyte distribution width (RBC) [Entitic vol] 42.4 fL 35.1-43.9 [facility] Erythrocyte distribution width (RBC) [Ratio] 12.8 % 11.6-14.6 [facility] Immature granulocytes/100 WBC (Bld) 0.300 % 0.0-0.9 [facility] Comment on above: IG% - Immature Granu locytes (promyelocytes, myelocytes and metamyelocytes) > 1% indicates that a LEFT SHIFT is Present. MCH (RBC) [Entitic mass] 30.8 pg 27.0-32.0 [facility] Nucleated RBC/100 WBC (Bld) [Ratio] 0 % 0-5 [facility] MCHC Auto (RBC) [Mass/Vol]Or dered By: Renard Burgos on 11-07-2022 MCHC (RBC) [Mass/Vol] 33.7 g/dL 32-36 [facility] Platelets bldOrdered By: Lyubov Burgos on 11-07-2022 Platelets (Bld) [#/Vol] 220 10*3/uL 150-450 [facility] Absolute lymphocyte countOrd ered By: Renard Burgos on 10-31-2022 Lymphocytes Auto (Unsp spec) [#/Vol] 1.97 10*3/uL 0.83-4.51 [facility] Basophil percentageOrdered B y: Renard Burgos on 10-31-2022 Basophils/100 WBC (Bld) 0.5 % 0-1 [facility] Eosinophils/100 WBC (Bld) 0.6 % 0-5 [facility] Neutrophils (Bld) [#/Vol] 6.7 10*3/uL 2.0-7.7 [facility] Neutrophils/100 WBC (Bld) 69.9 % 47-70 [facility] WBC (Bld) [#/Vol] 9.6 10*3/uL 4.4-11.0 [facility] Blood erythrocytes count (nu mber/volume)Ordered By: Renard Burgos on 10-31-2022 RBC (Bld) [#/Vol] 4.47 10*6/uL 4.6-6.2 [facility] Blood hemoglobin measurement (mass/volume)Ordered By: Renard Burgos on 10-31-2022 Hemoglobin (Bld) [Mass/Vol] 13.5 g/dL 13.0-16.5 [facility] Blood lymphocytes/100 leukoc ytesOrdered By: Renard Burgos on 10-31-2022 Lymphocytes/100 WBC (Bld) 20.5 % 19-41 [facility] Blood monocytes/100 leukocyt esOrdered By: Renard Burgos on 10-31-2022 Monocytes/100 WBC (Bld) 7.9 % 0-10 [facility] Blood platelet mean volumeOr dered By: Renard Burgos on 10-31-2022 Platelet mean volume (Bld) [Entitic vol] 11.1 fL 6.2-12.0 [facility] Determination of erythrocyte mean corpuscular volume (MCV)Ordered By: Renard Burgos on 10-31-2022 MCV (RBC) [Entitic vol] 92.4 fL 80-94 [facility] Hematocrit Auto (Bld) [Volum e fraction]Ordered By: Renard Burgos on 10-31-2022 Hematocrit (Bld) [Volume fraction] 41.3 % 40-54 [facility] - Hematology and Cell countsOrdered By: Renard Burgos on 10-31-2022 Erythrocyte distribution width (RBC) [Entitic vol] 42.9 fL 35.1-43.9 [facility] Erythrocyte distribution width (RBC) [Ratio] 12.7 % 11.6-14.6 [facility] Immature granulocytes/100 WBC (Bld) 0.600 % 0.0-0.9 [facility] Comment on above: IG% - Immature Granu locytes (promyelocytes, myelocytes and metamyelocytes) > 1% indicates that a LEFT SHIFT is Present. MCH (RBC) [Entitic mass] 30.2 pg 27.0-32.0 [facility] Nucleated RBC/100 WBC (Bld) [Ratio] 0 % 0-5 [facility] MCHC Auto (RBC) [Mass/Vol]Or dered By: Renard Burgos on 10-31-2022 MCHC (RBC) [Mass/Vol] 32.7 g/dL 32-36 [facility] Platelets bldOrdered By: Lyubov Burgos on 10-31-2022 Platelets (Bld) [#/Vol] 221 10*3/uL 150-450 [facility] Absolute lymphocyte countOrd ered By: Renard Burgos on 10-24-2022 Lymphocytes Auto (Unsp spec) [#/Vol] 1.96 10*3/uL 0.83-4.51 [facility] Basophil percentageOrdered B y: Renard Burgos on 10-24-2022 Basophils/100 WBC (Bld) 0.4 % 0-1 [facility] Eosinophils/100 WBC (Bld) 0.7 % 0-5 [facility] Neutrophils (Bld) [#/Vol] 4.5 10*3/uL 2.0-7.7 [facility] Neutrophils/100 WBC (Bld) 61.9 % 47-70 [facility] WBC (Bld) [#/Vol] 7.3 10*3/uL 4.4-11.0 [facility] Blood erythrocytes count (nu mber/volume)Ordered By: Renard Burgos on 10-24-2022 RBC (Bld) [#/Vol] 4.41 10*6/uL 4.6-6.2 [facility] Blood hemoglobin measurement (mass/volume)Ordered By: Renard Burgos on 10-24-2022 Hemoglobin (Bld) [Mass/Vol] 13.2 g/dL 13.0-16.5 [facility] Blood lymphocytes/100 leukoc ytesOrdered By: Renard Burgos on 10-24-2022 Lymphocytes/100 WBC (Bld) 27.0 % 19-41 [facility] Blood monocytes/100 leukocyt esOrdered By: Renard Burgos on 10-24-2022 Monocytes/100 WBC (Bld) 9.4 % 0-10 [facility] Blood platelet mean volumeOr dered By: Renard Burgos on 10-24-2022 Platelet mean volume (Bld) [Entitic vol] 10.9 fL 6.2-12.0 [facility] Determination of erythrocyte mean corpuscular volume (MCV)Ordered By: Renard Burgos on 10-24-2022 MCV (RBC) [Entitic vol] 92.1 fL 80-94 [facility] Hematocrit Auto (Bld) [Volum e fraction]Ordered By: Renard Burgos on 10-24-2022 Hematocrit (Bld) [Volume fraction] 40.6 % 40-54 [facility] Laboratory - Hematology and Cell countsOrdered By: Renard Burgos on 10-24-2022 Erythrocyte distribution width (RBC) [Entitic vol] 42.8 fL 35.1-43.9 [facility] Erythrocyte distribution width (RBC) [Ratio] 12.8 % 11.6-14.6 [facility] Immature granulocytes/100 WBC (Bld) 0.600 % 0.0-0.9 [facility] Comment on above: IG% - Immature Granu locytes (promyelocytes, myelocytes and metamyelocytes) > 1% indicates that a LEFT SHIFT is Present. MCH (RBC) [Entitic mass] 29.9 pg 27.0-32.0 [facility] Nucleated RBC/100 WBC (Bld) [Ratio] 0 % 0-5 [facility] MCHC Auto (RBC) [Mass/Vol]Or dered By: Renard Burgos on 10-24-2022 MCHC (RBC) [Mass/Vol] 32.5 g/dL 32-36 [facility] Platelets bldOrdered By: Pet lizy Burgos on 10-24-2022 Platelets (Bld) [#/Vol] 213 10*3/uL 150-450 [facility] Absolute lymphocyte countOrd ered By: Renard Burgos on 10-17-2022 Lymphocytes Auto (Unsp spec) [#/Vol] 2.05 10*3/uL 0.83-4.51 [facility] Basophil percentageOrdered B y: Renard Burgos on 10-17-2022 Basophils/100 WBC (Bld) 0.4 % 0-1 [facility] Eosinophils/100 WBC (Bld) 0.5 % 0-5 [facility] Neutrophils (Bld) [#/Vol] 6.7 10*3/uL 2.0-7.7 [facility] Neutrophils/100 WBC (Bld) 70.9 % 47-70 [facility] WBC (Bld) [#/Vol] 9.4 10*3/uL 4.4-11.0 [facility] Blood erythrocytes count (nu mber/volume)Ordered By: Renard Burgos on 10-17-2022 RBC (Bld) [#/Vol] 4.33 10*6/uL 4.6-6.2 [facility] Blood hemoglobin measurement (mass/volume)Ordered By: Renard Burgos on 10-17-2022 Hemoglobin (Bld) [Mass/Vol] 13.3 g/dL 13.0-16.5 [facility] Blood lymphocytes/100 leukoc ytesOrdered By: Renard Burgos on 10-17-2022 Lymphocytes/100 WBC (Bld) 21.7 % 19-41 [facility] Blood monocytes/100 leukocyt esOrdered By: Renard Burgos on 10-17-2022 Monocytes/100 WBC (Bld) 6.1 % 0-10 [facility] Blood platelet mean volumeOr dered By: Renard Burgos on 10-17-2022 Platelet mean volume (Bld) [Entitic vol] 10.9 fL 6.2-12.0 [facility] Determination of erythrocyte mean corpuscular volume (MCV)Ordered By: Renard Burgos on 10-17-2022 MCV (RBC) [Entitic vol] 93.8 fL 80-94 [facility] Hematocrit Auto (Bld) [Volum e fraction]Ordered By: Renard Burgos on 10-17-2022 Hematocrit (Bld) [Volume fraction] 40.6 % 40-54 [facility] - Hematology and Cell countsOrdered By: Renard Burgos on 10-17-2022 Erythrocyte distribution width (RBC) [Entitic vol] 42.7 fL 35.1-43.9 [facility] Erythrocyte distribution width (RBC) [Ratio] 12.4 % 11.6-14.6 [facility] Immature granulocytes/100 WBC (Bld) 0.400 % 0.0-0.9 [facility] Comment on above: IG% - Immature Granu locytes (promyelocytes, myelocytes and metamyelocytes) > 1% indicates that a LEFT SHIFT is Present. MCH (RBC) [Entitic mass] 30.7 pg 27.0-32.0 [facility] Nucleated RBC/100 WBC (Bld) [Ratio] 0 % 0-5 [facility] MCHC Auto (RBC) [Mass/Vol]Or dered By: Renard Burgos on 10-17-2022 MCHC (RBC) [Mass/Vol] 32.8 g/dL 32-36 [facility] Platelets bldOrdered By: Lyubov Burgos on 10-17-2022 Platelets (Bld) [#/Vol] 186 10*3/uL 150-450 [facility] Absolute lymphocyte countOrd ered By: Renard Burgos on 10-10-2022 Lymphocytes Auto (Unsp spec) [#/Vol] 2.21 10*3/uL 0.83-4.51 [facility] Basophil percentageOrdered B y: Renard Burgos on 10-10-2022 Basophils/100 WBC (Bld) 0.6 % 0-1 [facility] Eosinophils/100 WBC (Bld) 0.6 % 0-5 [facility] Neutrophils (Bld) [#/Vol] 4.7 10*3/uL 2.0-7.7 [facility] Neutrophils/100 WBC (Bld) 59.6 % 47-70 [facility] WBC (Bld) [#/Vol] 7.9 10*3/uL 4.4-11.0 [facility] Blood erythrocytes count (nu mber/volume)Ordered By: Renard Burgos on 10-10-2022 RBC (Bld) [#/Vol] 4.78 10*6/uL 4.6-6.2 [facility] Blood hemoglobin measurement (mass/volume)Ordered By: Renard Burgos on 10-10-2022 Hemoglobin (Bld) [Mass/Vol] 14.4 g/dL 13.0-16.5 [facility] Blood lymphocytes/100 leukoc ytesOrdered By: Renard Burgos on 10-10-2022 Lymphocytes/100 WBC (Bld) 28.0 % 19-41 [facility] Blood monocytes/100 leukocyt esOrdered By: Renard Burgos on 10-10-2022 Monocytes/100 WBC (Bld) 10.8 % 0-10 [facility] Blood platelet mean volumeOr dered By: Renard Burgos on 10-10-2022 Platelet mean volume (Bld) [Entitic vol] 10.7 fL 6.2-12.0 [facility] Determination of erythrocyte mean corpuscular volume (MCV)Ordered By: Renard Burgos on 10-10-2022 MCV (RBC) [Entitic vol] 94.8 fL 80-94 [facility] Hematocrit Auto (Bld) [Volum e fraction]Ordered By: Renard Burgos on 10-10-2022 Hematocrit (Bld) [Volume fraction] 45.3 % 40-54 [facility] - Hematology and Cell countsOrdered By: Renard Burgos on 10-10-2022 Erythrocyte distribution width (RBC) [Entitic vol] 43.8 fL 35.1-43.9 [facility] Erythrocyte distribution width (RBC) [Ratio] 12.6 % 11.6-14.6 [facility] Immature granulocytes/100 WBC (Bld) 0.400 % 0.0-0.9 [facility] Comment on above: IG% - Immature Granu locytes (promyelocytes, myelocytes and metamyelocytes) > 1% indicates that a LEFT SHIFT is Present. MCH (RBC) [Entitic mass] 30.1 pg 27.0-32.0 [facility] Nucleated RBC/100 WBC (Bld) [Ratio] 0 % 0-5 [facility] MCHC Auto (RBC) [Mass/Vol]Or dered By: Renard Burgos on 10-10-2022 MCHC (RBC) [Mass/Vol] 31.8 g/dL 32-36 [facility] Platelets bldOrdered By: Lyubov Burgos on 10-10-2022 Platelets (Bld) [#/Vol] 198 10*3/uL 150-450 [facility] Absolute lymphocyte countOrd ered By: Renard Burgos on 10-03-2022 Lymphocytes Auto (Unsp spec) [#/Vol] 2.00 10*3/uL 0.83-4.51 [facility] Basophil percentageOrdered B y: Renard Burgos on 10-03-2022 Basophils/100 WBC (Bld) 0.6 % 0-1 [facility] Bilirubin [Mass/Vol] 0.30 mg/dL 0.20-1.00 [facility] Comment on above: For patients on eltr ombopag therapy, use of Dimension [place] TBIL is not recommended. Chloride [Moles/Vol] 109 mmol/L 98-107 [facility] Cholesterol [Mass/Vol] 129 mg/dL <[address] [facility] Comment on above: <200 mg/dL Desirable 200-240 mg/dL Borderline >240 mg/dL High Risk Eosinophils/100 WBC (Bld) 0.8 % 0-5 [facility] Glucose [Mass/Vol] 82 mg/dL 74-106 [facility] Neutrophils (Bld) [#/Vol] 5.1 10*3/uL 2.0-7.7 [facility] Neutrophils/100 WBC (Bld) 63.2 % 47-70 [facility] Potassium [Moles/Vol] 3.9 mmol/L 3.5-5.1 [facility] Protein [Mass/Vol] 6.1 g/dL 6.4-8.2 [facility] Sodium [Moles/Vol] 140 mmol/L 136-145 [facility] Triglyceride [Mass/Vol] 209 mg/dL <199 [facility] Comment on above: The drugs N-Acetylcy steine and Metamizole may falsely depress this assay.Serum Triglycerides Reference Interval Normal <150 mg/dL Borderline high 150 - 199 mg/dL High 200 - 499 mg/dL Very High > or = 500 mg/dL WBC (Bld) [#/Vol] 8.0 10*3/uL 4.4-11.0 [facility] Blood erythrocytes count (nu mber/volume)Ordered By: Renard Burgos on 10-03-2022 RBC (Bld) [#/Vol] 4.58 10*6/uL 4.6-6.2 [facility] Blood hemoglobin measurement (mass/volume)Ordered By: Renard Burgos on 10-03-2022 Hemoglobin (Bld) [Mass/Vol] 13.9 g/dL 13.0-16.5 [facility] Blood lymphocytes/100 leukoc ytesOrdered By: Renard Burgos on 10-03-2022 Lymphocytes/100 WBC (Bld) 25.1 % 19-41 [facility] Blood monocytes/100 leukocyt esOrdered By: Renard Burgos on 10-03-2022 Monocytes/100 WBC (Bld) 10.0 % 0-10 [facility] Blood platelet mean volumeOr dered By: Renard Burgos on 10-03-2022 Platelet mean volume (Bld) [Entitic vol] 11.1 fL 6.2-12.0 [facility] Determination of erythrocyte mean corpuscular volume (MCV)Ordered By: Renard Burgos on 10-03-2022 MCV (RBC) [Entitic vol] 93.9 fL 80-94 [facility] Hematocrit Auto (Bld) [Volum e fraction]Ordered By: Renard Burgos on 10-03-2022 Hematocrit (Bld) [Volume fraction] 43.0 % 40-54 [facility] - Chemistry and C hemistry - challengeOrdered By: Renard Burgos on 10-03-2022 ALP [Catalytic activity/Vol] 98 U/L 45-117 [facility] ALT [Catalytic activity/Vol] 19 U/L 16-61 [facility] CO2 [Moles/Vol] 31.0 mmol/L 21.0-32.0 [facility] Globulin (S) [Mass/Vol] 3.1 g/dL 2.2-4.2 [facility] Urea nitrogen/Creatinine [Mass ratio] 25.6 mg/mg 10-20 [facility] - Hematology and Cell countsOrdered By: Renard Burgos on 10-03-2022 Erythrocyte distribution width (RBC) [Entitic vol] 43.8 fL 35.1-43.9 [facility] Erythrocyte distribution width (RBC) [Ratio] 12.7 % 11.6-14.6 [facility] Immature granulocytes/100 WBC (Bld) 0.300 % 0.0-0.9 [facility] Comment on above: IG% - Immature Granu locytes (promyelocytes, myelocytes and metamyelocytes) > 1% indicates that a LEFT SHIFT is Present. MCH (RBC) [Entitic mass] 30.3 pg 27.0-32.0 [facility] Nucleated RBC/100 WBC (Bld) [Ratio] 0 % 0-5 [facility] MCHC Auto (RBC) [Mass/Vol]Or dered By: Renard Burgos on 10-03-2022 MCHC (RBC) [Mass/Vol] 32.3 g/dL 32-36 [facility] No Panel InformationOrdered By: Renard Burgos on 10-03-2022 Estimated GFR (MDRD) Amer 165 mL/min >60 [facility] Comment on above: GFR Calc Estimated GFR (MDRD) Non-Af Amer 137 mL/min >60 [facility] Comment on above: Non- GFR Calc Platelets bldOrdered By: Lyubov Burgos on 10-03-2022 Platelets (Bld) [#/Vol] 204 10*3/uL 150-450 [facility] Serum or plasma albumin gordy urement (mass/volume)Ordered By: Renard Burgos on 10-03-2022 Albumin [Mass/Vol] 3.0 g/dL 3.2-5.0 [facility] Serum or plasma albumin/glob ulin mass ratioOrdered By: Renard Burgos on 10-03-2022 Albumin/Globulin [Mass ratio] 1.0 {ratio} 0.9-2.4 [facility] Serum or plasma calcium gordy urement (mass/volume)Ordered By: Renard Burgos on 10-03-2022 Calcium [Mass/Vol] 8.4 mg/dL 8.5-10.1 [facility] Serum or plasma cholesterol in HDL measurement (mass/volume)Ordered By: Renard Burgos on 10-03-2022 Cholesterol in HDL [Mass/Vol] 29 mg/dL >40 [facility] Comment on above: The drugs N-Acetylcy steine and Metamizole may falsely depress this assay. Reference Range HDL <40 mg/dL Low HDL Cholesterol HDL >or= 60 mg/dL High HDL Cholesterol Serum or plasma cholesterol in VLDL measurement (mass/volume)Ordered By: Renard Burgos on 10-03-2022 Cholesterol in VLDL [Mass/Vol] 42 mg/dL 5-40 [facility] Serum or plasma creatinine m easurement (mass/volume)Ordered By: Renard Burgos on 10-03-2022 Creatinine [Mass/Vol] 0.63 mg/dL 0.70-1.30 [facility] Comment on above: The validity of the calculated GFR & GFRAA in patients over 70 years has not been determined. Clinical correlation is essential. Serum or plasma low density lipoprotein (LDL) cholesterol measurement (mass/volume)Ordered By: Renard Burgos on 10-03-2022 Cholesterol in LDL [Mass/Vol] 58 mg/dL 0-130 [facility] Serum or plasma urea nitroge n measurement (mass/volume)Ordered By: Renard Burgos on 10-03-2022 Urea nitrogen [Mass/Vol] 16 mg/dL 7-18 [facility] Thin prep Papanicolaou smear with manual screeningOrdered By: Renard Burgos on 10-03-2022 Thin prep Papanicolaou smear with manual screening 13 U/L 15-37 [facility] Thin prep Papanicolaou smear with manual screening 0 5-15 [facility] Absolute lymphocyte countOrd ered By: Renard Burgos on 09-19-2022 Lymphocytes Auto (Unsp spec) [#/Vol] 1.59 10*3/uL 0.83-4.51 [facility] Basophil percentageOrdered B y: Renard Burgos on 09-19-2022 Basophils/100 WBC (Bld) 0.5 % 0-1 [facility] Eosinophils/100 WBC (Bld) 0.3 % 0-5 [facility] Neutrophils (Bld) [#/Vol] 7.4 10*3/uL 2.0-7.7 [facility] Neutrophils/100 WBC (Bld) 75.0 % 47-70 [facility] WBC (Bld) [#/Vol] 9.9 10*3/uL 4.4-11.0 [facility] Blood erythrocytes count (nu mber/volume)Ordered By: Renard Burgos on 09-19-2022 RBC (Bld) [#/Vol] 4.46 10*6/uL 4.6-6.2 [facility] Blood hemoglobin measurement (mass/volume)Ordered By: Renard Burgos on 09-19-2022 Hemoglobin (Bld) [Mass/Vol] 13.5 g/dL 13.0-16.5 [facility] Blood lymphocytes/100 leukoc ytesOrdered By: Renard Burgos on 09-19-2022 Lymphocytes/100 WBC (Bld) 16.1 % 19-41 [facility] Blood monocytes/100 leukocyt esOrdered By: Renard Burgos on 09-19-2022 Monocytes/100 WBC (Bld) 7.6 % 0-10 [facility] Blood platelet mean volumeOr dered By: Renard Burgos on 09-19-2022 Platelet mean volume (Bld) [Entitic vol] 10.8 fL 6.2-12.0 [facility] Determination of erythrocyte mean corpuscular volume (MCV)Ordered By: Renard Burgos on 09-19-2022 MCV (RBC) [Entitic vol] 92.2 fL 80-94 [facility] Hematocrit Auto (Bld) [Volum e fraction]Ordered By: Renard Burgos on 09-19-2022 Hematocrit (Bld) [Volume fraction] 41.1 % 40-54 [facility] - Hematology and Cell countsOrdered By: Renard Burgos on 09-19-2022 Erythrocyte distribution width (RBC) [Entitic vol] 41.2 fL 35.1-43.9 [facility] Erythrocyte distribution width (RBC) [Ratio] 12.3 % 11.6-14.6 [facility] Immature granulocytes/100 WBC (Bld) 0.500 % 0.0-0.9 [facility] Comment on above: IG% - Immature Granu locytes (promyelocytes, myelocytes and metamyelocytes) > 1% indicates that a LEFT SHIFT is Present. MCH (RBC) [Entitic mass] 30.3 pg 27.0-32.0 [facility] Nucleated RBC/100 WBC (Bld) [Ratio] 0 % 0-5 [facility] MCHC Auto (RBC) [Mass/Vol]Or dered By: Renard Burgos on 09-19-2022 MCHC (RBC) [Mass/Vol] 32.8 g/dL 32-36 [facility] Platelets bldOrdered By: Pet lizy Burgos on 09-19-2022 Platelets (Bld) [#/Vol] 245 10*3/uL 150-450 [facility] Absolute lymphocyte countOrd ered By: Renard Burgos on 09-12-2022 Lymphocytes Auto (Unsp spec) [#/Vol] 2.11 10*3/uL 0.83-4.51 [facility] Basophil percentageOrdered B y: Renard Burgos on 09-12-2022 Basophils/100 WBC (Bld) 0.5 % 0-1 [facility] Eosinophils/100 WBC (Bld) 0.7 % 0-5 [facility] Neutrophils (Bld) [#/Vol] 4.7 10*3/uL 2.0-7.7 [facility] Neutrophils/100 WBC (Bld) 63.6 % 47-70 [facility] WBC (Bld) [#/Vol] 7.3 10*3/uL 4.4-11.0 [facility] Blood erythrocytes count (nu mber/volume)Ordered By: Renard Burgos on 09-12-2022 RBC (Bld) [#/Vol] 4.40 10*6/uL 4.6-6.2 [facility] Blood hemoglobin measurement (mass/volume)Ordered By: Renard Burgos on 09-12-2022 Hemoglobin (Bld) [Mass/Vol] 13.5 g/dL 13.0-16.5 [facility] Blood lymphocytes/100 leukoc ytesOrdered By: Renard Burgos on 09-12-2022 Lymphocytes/100 WBC (Bld) 28.8 % 19-41 [facility] Blood monocytes/100 leukocyt esOrdered By: Renard Burgos on 09-12-2022 Monocytes/100 WBC (Bld) 6.1 % 0-10 [facility] Blood platelet mean volumeOr dered By: Renard Burgos on 09-12-2022 Platelet mean volume (Bld) [Entitic vol] 10.7 fL 6.2-12.0 [facility] Determination of erythrocyte mean corpuscular volume (MCV)Ordered By: Renard Burgos on 09-12-2022 MCV (RBC) [Entitic vol] 91.4 fL 80-94 [facility] Hematocrit Auto (Bld) [Volum e fraction]Ordered By: Renard Burgos on 09-12-2022 Hematocrit (Bld) [Volume fraction] 40.2 % 40-54 [facility] - Hematology and Cell countsOrdered By: Renard Burgos on 09-12-2022 Erythrocyte distribution width (RBC) [Entitic vol] 41.3 fL 35.1-43.9 [facility] Erythrocyte distribution width (RBC) [Ratio] 12.5 % 11.6-14.6 [facility] Immature granulocytes/100 WBC (Bld) 0.300 % 0.0-0.9 [facility] Comment on above: IG% - Immature Granu locytes (promyelocytes, myelocytes and metamyelocytes) > 1% indicates that a LEFT SHIFT is Present. MCH (RBC) [Entitic mass] 30.7 pg 27.0-32.0 [facility] Nucleated RBC/100 WBC (Bld) [Ratio] 0 % 0-5 [facility] MCHC Auto (RBC) [Mass/Vol]Or dered By: Renard Burgos on 09-12-2022 MCHC (RBC) [Mass/Vol] 33.6 g/dL 32-36 [facility] Platelets bldOrdered By: Lyubov Burgos on 09-12-2022 Platelets (Bld) [#/Vol] 197 10*3/uL 150-450 [facility] Absolute lymphocyte countOrd ered By: Renard Burgos on 09-05-2022 Lymphocytes Auto (Unsp spec) [#/Vol] 1.94 10*3/uL 0.83-4.51 [facility] Basophil percentageOrdered B y: Renard Burgos on 09-05-2022 Basophils/100 WBC (Bld) 0.5 % 0-1 [facility] Cholesterol [Mass/Vol] 136 mg/dL <[address] [facility] Comment on above: <200 mg/dL Desirable 200-240 mg/dL Borderline >240 mg/dL High Risk Eosinophils/100 WBC (Bld) 0.4 % 0-5 [facility] Neutrophils (Bld) [#/Vol] 5.4 10*3/uL 2.0-7.7 [facility] Neutrophils/100 WBC (Bld) 67.5 % 47-70 [facility] Triglyceride [Mass/Vol] 304 mg/dL <199 [facility] Comment on above: The drugs N-Acetylcy steine and Metamizole may falsely depress this assay.Serum Triglycerides Reference Interval Normal <150 mg/dL Borderline high 150 - 199 mg/dL High 200 - 499 mg/dL Very High > or = 500 mg/dL WBC (Bld) [#/Vol] 7.9 10*3/uL 4.4-11.0 [facility] Blood erythrocytes count (nu mber/volume)Ordered By: Renard Burgos on 09-05-2022 RBC (Bld) [#/Vol] 4.28 10*6/uL 4.6-6.2 [facility] Blood hemoglobin measurement (mass/volume)Ordered By: Renard Burgos on 09-05-2022 Hemoglobin (Bld) [Mass/Vol] 12.9 g/dL 13.0-16.5 [facility] Blood lymphocytes/100 leukoc ytesOrdered By: Renard Burgos on 09-05-2022 Lymphocytes/100 WBC (Bld) 24.5 % 19-41 [facility] Blood monocytes/100 leukocyt esOrdered By: Renard Burgos on 05-08-2023 Monocytes/100 WBC (Bld) 6.6 % 0-10 [facility] Blood platelet mean volumeOr dered By: Renard Burgos on 09-05-2022 Platelet mean volume (Bld) [Entitic vol] 10.7 fL 6.2-12.0 [facility] Determination of erythrocyte mean corpuscular volume (MCV)Ordered By: Renard Burgos on 09-05-2022 MCV (RBC) [Entitic vol] 91.4 fL 80-94 [facility] Hematocrit Auto (Bld) [Volum e fraction]Ordered By: Renard Burgos on 09-05-2022 Hematocrit (Bld) [Volume fraction] 39.1 % 40-54 [facility] - Hematology and Cell countsOrdered By: Renard Burgos on 09-05-2022 Erythrocyte distribution width (RBC) [Entitic vol] 41.5 fL 35.1-43.9 [facility] Erythrocyte distribution width (RBC) [Ratio] 12.6 % 11.6-14.6 [facility] Immature granulocytes/100 WBC (Bld) 0.500 % 0.0-0.9 [facility] Comment on above: IG% - Immature Granu locytes (promyelocytes, myelocytes and metamyelocytes) > 1% indicates that a LEFT SHIFT is Present. MCH (RBC) [Entitic mass] 30.1 pg 27.0-32.0 [facility] Nucleated RBC/100 WBC (Bld) [Ratio] 0 % 0-5 [facility] MCHC Auto (RBC) [Mass/Vol]Or dered By: Renard Burgos on 09-05-2022 MCHC (RBC) [Mass/Vol] 33.0 g/dL 32-36 [facility] Platelets bldOrdered By: Lyubov Brugos on 09-05-2022 Platelets (Bld) [#/Vol] 200 10*3/uL 150-450 [facility] Serum or plasma cholesterol in HDL measurement (mass/volume)Ordered By: Renard Burgos on 09-05-2022 Cholesterol in HDL [Mass/Vol] 24 mg/dL >40 [facility] Comment on above: The drugs N-Acetylcy steine and Metamizole may falsely depress this assay. Reference Range HDL <40 mg/dL Low HDL Cholesterol HDL >or= 60 mg/dL High HDL Cholesterol Serum or plasma cholesterol in VLDL measurement (mass/volume)Ordered By: Renard Burgos on 09-05-2022 Cholesterol in VLDL [Mass/Vol] 61 mg/dL 5-40 [facility] Serum or plasma low density lipoprotein (LDL) cholesterol measurement (mass/volume)Ordered By: Renard Burgos on 09-05-2022 Cholesterol in LDL [Mass/Vol] 51 mg/dL 0-130 [facility] Absolute lymphocyte countOrd ered By: Renard Burgos on 08-29-2022 Lymphocytes Auto (Unsp spec) [#/Vol] 1.91 10*3/uL 0.83-4.51 [facility] Basophil percentageOrdered B y: Renard Burgos on 08-29-2022 Basophils/100 WBC (Bld) 0.4 % 0-1 [facility] Eosinophils/100 WBC (Bld) 0.4 % 0-5 [facility] Neutrophils (Bld) [#/Vol] 4.8 10*3/uL 2.0-7.7 [facility] Neutrophils/100 WBC (Bld) 66.0 % 47-70 [facility] WBC (Bld) [#/Vol] 7.3 10*3/uL 4.4-11.0 [facility] Blood erythrocytes count (nu mber/volume)Ordered By: Renard Burgos on 08-29-2022 RBC (Bld) [#/Vol] 4.43 10*6/uL 4.6-6.2 [facility] Blood hemoglobin measurement (mass/volume)Ordered By: Renard Burgos on 08-29-2022 Hemoglobin (Bld) [Mass/Vol] 13.6 g/dL 13.0-16.5 [facility] Blood lymphocytes/100 leukoc ytesOrdered By: Renard Burgos on 08-29-2022 Lymphocytes/100 WBC (Bld) 26.2 % 19-41 [facility] Blood monocytes/100 leukocyt esOrdered By: Renard Burgos on 08-29-2022 Monocytes/100 WBC (Bld) 6.6 % 0-10 [facility] Blood platelet mean volumeOr dered By: Renard Burgos on 08-29-2022 Platelet mean volume (Bld) [Entitic vol] 11.0 fL 6.2-12.0 [facility] Determination of erythrocyte mean corpuscular volume (MCV)Ordered By: Renard Burgos on 08-29-2022 MCV (RBC) [Entitic vol] 92.1 fL 80-94 [facility] Hematocrit Auto (Bld) [Volum e fraction]Ordered By: Renard Burgos on 08-29-2022 Hematocrit (Bld) [Volume fraction] 40.8 % 40-54 [facility] Laboratory - Hematology and Cell countsOrdered By: Renard Burgos on 08-29-2022 Erythrocyte distribution width (RBC) [Entitic vol] 42.0 fL 35.1-43.9 [facility] Erythrocyte distribution width (RBC) [Ratio] 12.4 % 11.6-14.6 [facility] Immature granulocytes/100 WBC (Bld) 0.400 % 0.0-0.9 [facility] Comment on above: IG% - Immature Granu locytes (promyelocytes, myelocytes and metamyelocytes) > 1% indicates that a LEFT SHIFT is Present. MCH (RBC) [Entitic mass] 30.7 pg 27.0-32.0 [facility] Nucleated RBC/100 WBC (Bld) [Ratio] 0 % 0-5 [facility] MCHC Auto (RBC) [Mass/Vol]Or dered By: Renard Burgos on 08-29-2022 MCHC (RBC) [Mass/Vol] 33.3 g/dL 32-36 [facility] Platelets bldOrdered By: Lyubov Burgos on 08-29-2022 Platelets (Bld) [#/Vol] 195 10*3/uL 150-450 [facility] Absolute lymphocyte countOrd ered By: Renard Burgos on 08-22-2022 Lymphocytes Auto (Unsp spec) [#/Vol] 1.86 10*3/uL 0.83-4.51 [facility] Basophil percentageOrdered B y: Renard Burgos on 08-22-2022 Basophils/100 WBC (Bld) 0.4 % 0-1 [facility] Eosinophils/100 WBC (Bld) 0.4 % 0-5 [facility] Neutrophils (Bld) [#/Vol] 6.5 10*3/uL 2.0-7.7 [facility] Neutrophils/100 WBC (Bld) 70.5 % 47-70 [facility] WBC (Bld) [#/Vol] 9.3 10*3/uL 4.4-11.0 [facility] Blood erythrocytes count (nu mber/volume)Ordered By: Renard Burgos on 08-22-2022 RBC (Bld) [#/Vol] 4.55 10*6/uL 4.6-6.2 [facility] Blood hemoglobin measurement (mass/volume)Ordered By: Renard Burgos on 08-22-2022 Hemoglobin (Bld) [Mass/Vol] 14.1 g/dL 13.0-16.5 [facility] Blood lymphocytes/100 leukoc ytesOrdered By: Renard Burgos on 08-22-2022 Lymphocytes/100 WBC (Bld) 20.1 % 19-41 [facility] Blood monocytes/100 leukocyt esOrdered By: Renard Burgos on 08-22-2022 Monocytes/100 WBC (Bld) 8.3 % 0-10 [facility] Blood platelet mean volumeOr dered By: Renard Burgos on 08-22-2022 Platelet mean volume (Bld) [Entitic vol] 10.8 fL 6.2-12.0 [facility] Determination of erythrocyte mean corpuscular volume (MCV)Ordered By: Renard Burgos on 08-22-2022 MCV (RBC) [Entitic vol] 91.9 fL 80-94 [facility] Hematocrit Auto (Bld) [Volum e fraction]Ordered By: eRnard Burgos on 08-22-2022 Hematocrit (Bld) [Volume fraction] 41.8 % 40-54 [facility] Laboratory - Hematology and Cell countsOrdered By: Renard Burgos on 08-22-2022 Erythrocyte distribution width (RBC) [Entitic vol] 42.5 fL 35.1-43.9 [facility] Erythrocyte distribution width (RBC) [Ratio] 12.6 % 11.6-14.6 [facility] Immature granulocytes/100 WBC (Bld) 0.300 % 0.0-0.9 [facility] Comment on above: IG% - Immature Granu locytes (promyelocytes, myelocytes and metamyelocytes) > 1% indicates that a LEFT SHIFT is Present. MCH (RBC) [Entitic mass] 31.0 pg 27.0-32.0 [facility] Nucleated RBC/100 WBC (Bld) [Ratio] 0 % 0-5 [facility] MCHC Auto (RBC) [Mass/Vol]Or dered By: Renard Burgos on 08-22-2022 MCHC (RBC) [Mass/Vol] 33.7 g/dL 32-36 [facility] Platelets bldOrdered By: [facility] er [facility]oretta on 08-22-2022 Platelets (Bld) [#/Vol] 197 10*3/uL 150-450 [facility] Absolute lymphocyte countOrd ered By: Renard Burgos on 08-15-2022 Lymphocytes Auto (Unsp spec) [#/Vol] 1.88 10*3/uL 0.83-4.51 [facility] Basophil percentageOrdered B y: Renard Burgos on 08-15-2022 Basophils/100 WBC (Bld) 0.5 % 0-1 [facility] Eosinophils/100 WBC (Bld) 0.5 % 0-5 [facility] Neutrophils (Bld) [#/Vol] 5.1 10*3/uL 2.0-7.7 [facility] Neutrophils/100 WBC (Bld) 65.0 % 47-70 [facility] WBC (Bld) [#/Vol] 7.9 10*3/uL 4.4-11.0 [facility] Blood erythrocytes count (nu mber/volume)Ordered By: Renard Burgos on 08-15-2022 RBC (Bld) [#/Vol] 4.48 10*6/uL 4.6-6.2 [facility] Blood hemoglobin measurement (mass/volume)Ordered By: Renard Burgos on 08-15-2022 Hemoglobin (Bld) [Mass/Vol] 13.7 g/dL 13.0-16.5 [facility] Blood lymphocytes/100 leukoc ytesOrdered By: Renard Burgos on 08-15-2022 Lymphocytes/100 WBC (Bld) 23.9 % 19-41 [facility] Blood monocytes/100 leukocyt esOrdered By: Renard Burgos on 08-15-2022 Monocytes/100 WBC (Bld) 9.8 % 0-10 [facility] Blood platelet mean volumeOr dered By: Renard Burgos on 08-15-2022 Platelet mean volume (Bld) [Entitic vol] 10.7 fL 6.2-12.0 [facility] Determination of erythrocyte mean corpuscular volume (MCV)Ordered By: Renard Burgos on 08-15-2022 MCV (RBC) [Entitic vol] 91.1 fL 80-94 [facility] Hematocrit Auto (Bld) [Volum e fraction]Ordered By: Renard Burgos on 08-15-2022 Hematocrit (Bld) [Volume fraction] 40.8 % 40-54 [facility] - Hematology and Cell countsOrdered By: Renard Burgos on 08-15-2022 Erythrocyte distribution width (RBC) [Entitic vol] 41.0 fL 35.1-43.9 [facility] Erythrocyte distribution width (RBC) [Ratio] 12.4 % 11.6-14.6 [facility] Immature granulocytes/100 WBC (Bld) 0.300 % 0.0-0.9 [facility] Comment on above: IG% - Immature Granu locytes (promyelocytes, myelocytes and metamyelocytes) > 1% indicates that a LEFT SHIFT is Present. MCH (RBC) [Entitic mass] 30.6 pg 27.0-32.0 [facility] Nucleated RBC/100 WBC (Bld) [Ratio] 0 % 0-5 [facility] MCHC Auto (RBC) [Mass/Vol]Or dered By: Renard Burgos on 08-15-2022 MCHC (RBC) [Mass/Vol] 33.6 g/dL 32-36 [facility] Platelets bldOrdered By: Lyubov Burgos on 08-15-2022 Platelets (Bld) [#/Vol] 212 10*3/uL 150-450 [facility] Absolute lymphocyte countOrd ered By: Renard Burgos on 08-08-2022 Lymphocytes Auto (Unsp spec) [#/Vol] 1.96 10*3/uL 0.83-4.51 [facility] Basophil percentageOrdered B y: Renard Burgos on 08-08-2022 Basophils/100 WBC (Bld) 0.5 % 0-1 [facility] Eosinophils/100 WBC (Bld) 0.5 % 0-5 [facility] Neutrophils (Bld) [#/Vol] 4.7 10*3/uL 2.0-7.7 [facility] Neutrophils/100 WBC (Bld) 64.1 % 47-70 [facility] WBC (Bld) [#/Vol] 7.4 10*3/uL 4.4-11.0 [facility] Blood erythrocytes count (nu mber/volume)Ordered By: Renard Burgos on 08-08-2022 RBC (Bld) [#/Vol] 4.44 10*6/uL 4.6-6.2 [facility] Blood hemoglobin measurement (mass/volume)Ordered By: Renard Burgos on 08-08-2022 Hemoglobin (Bld) [Mass/Vol] 13.6 g/dL 13.0-16.5 [facility] Blood lymphocytes/100 leukoc ytesOrdered By: Renard Burgos on 08-08-2022 Lymphocytes/100 WBC (Bld) 26.5 % 19-41 [facility] Blood monocytes/100 leukocyt esOrdered By: Renard Burgos on 08-08-2022 Monocytes/100 WBC (Bld) 8.1 % 0-10 [facility] Blood platelet mean volumeOr dered By: Renard Burgos on 08-08-2022 Platelet mean volume (Bld) [Entitic vol] 10.8 fL 6.2-12.0 [facility] Determination of erythrocyte mean corpuscular volume (MCV)Ordered By: Renard Burgos on 08-08-2022 MCV (RBC) [Entitic vol] 91.7 fL 80-94 [facility] Hematocrit Auto (Bld) [Volum e fraction]Ordered By: Renard Burgos on 08-08-2022 Hematocrit (Bld) [Volume fraction] 40.7 % 40-54 [facility] - Hematology and Cell countsOrdered By: Renard Burgos on 08-08-2022 Erythrocyte distribution width (RBC) [Entitic vol] 42.7 fL 35.1-43.9 [facility] Erythrocyte distribution width (RBC) [Ratio] 12.6 % 11.6-14.6 [facility] Immature granulocytes/100 WBC (Bld) 0.300 % 0.0-0.9 [facility] Comment on above: IG% - Immature Granu locytes (promyelocytes, myelocytes and metamyelocytes) > 1% indicates that a LEFT SHIFT is Present. MCH (RBC) [Entitic mass] 30.6 pg 27.0-32.0 [facility] Nucleated RBC/100 WBC (Bld) [Ratio] 0 % 0-5 [facility] MCHC Auto (RBC) [Mass/Vol]Or dered By: Renard Burgos on 08-08-2022 MCHC (RBC) [Mass/Vol] 33.4 g/dL 32-36 [facility] Platelets bldOrdered By: Lyubov Burgos on 08-08-2022 Platelets (Bld) [#/Vol] 187 10*3/uL 150-450 [facility] Absolute lymphocyte countOrd ered By: Renard Burgos on 08-01-2022 Lymphocytes Auto (Unsp spec) [#/Vol] 2.09 10*3/uL 0.83-4.51 [facility] Basophil percentageOrdered B y: Renard Burgos on 08-01-2022 Basophils/100 WBC (Bld) 0.4 % 0-1 [facility] Eosinophils/100 WBC (Bld) 0.4 % 0-5 [facility] Neutrophils (Bld) [#/Vol] 6.6 10*3/uL 2.0-7.7 [facility] Neutrophils/100 WBC (Bld) 69.1 % 47-70 [facility] WBC (Bld) [#/Vol] 9.5 10*3/uL 4.4-11.0 [facility] Blood erythrocytes count (nu mber/volume)Ordered By: Renard Burgos on 08-01-2022 RBC (Bld) [#/Vol] 4.48 10*6/uL 4.6-6.2 [facility] Blood hemoglobin measurement (mass/volume)Ordered By: Renard Burgos on 08-01-2022 Hemoglobin (Bld) [Mass/Vol] 13.9 g/dL 13.0-16.5 [facility] Blood lymphocytes/100 leukoc ytesOrdered By: Renard Burgos on 08-01-2022 Lymphocytes/100 WBC (Bld) 21.9 % 19-41 [facility] Blood monocytes/100 leukocyt esOrdered By: Renard Burgos on 08-01-2022 Monocytes/100 WBC (Bld) 7.9 % 0-10 [facility] Blood platelet mean volumeOr dered By: Renard Burgos on 08-01-2022 Platelet mean volume (Bld) [Entitic vol] 11.0 fL 6.2-12.0 [facility] Determination of erythrocyte mean corpuscular volume (MCV)Ordered By: Renard Burgos on 08-01-2022 MCV (RBC) [Entitic vol] 91.5 fL 80-94 [facility] Hematocrit Auto (Bld) [Volum e fraction]Ordered By: Renard Burgos on 08-01-2022 Hematocrit (Bld) [Volume fraction] 41.0 % 40-54 [facility] - Hematology and Cell countsOrdered By: Renard Burgos on 08-01-2022 Erythrocyte distribution width (RBC) [Entitic vol] 41.6 fL 35.1-43.9 [facility] Erythrocyte distribution width (RBC) [Ratio] 12.5 % 11.6-14.6 [facility] Immature granulocytes/100 WBC (Bld) 0.300 % 0.0-0.9 [facility] Comment on above: IG% - Immature Granu locytes (promyelocytes, myelocytes and metamyelocytes) > 1% indicates that a LEFT SHIFT is Present. MCH (RBC) [Entitic mass] 31.0 pg 27.0-32.0 [facility] Nucleated RBC/100 WBC (Bld) [Ratio] 0 % 0-5 [facility] MCHC Auto (RBC) [Mass/Vol]Or dered By: Renard Burgos on 08-01-2022 MCHC (RBC) [Mass/Vol] 33.9 g/dL 32-36 [facility] Platelets bldOrdered By: Lyubov Burgos on 08-01-2022 Platelets (Bld) [#/Vol] 208 10*3/uL 150-450 [facility] Absolute lymphocyte countOrd ered By: Renard Burgos on 07-25-2022 Lymphocytes Auto (Unsp spec) [#/Vol] 2.16 10*3/uL 0.83-4.51 [facility] Basophil percentageOrdered B y: Renard Burgos on 07-25-2022 Basophils/100 WBC (Bld) 0.6 % 0-1 [facility] Eosinophils/100 WBC (Bld) 0.6 % 0-5 [facility] Neutrophils (Bld) [#/Vol] 5.4 10*3/uL 2.0-7.7 [facility] Neutrophils/100 WBC (Bld) 64.5 % 47-70 [facility] WBC (Bld) [#/Vol] 8.4 10*3/uL 4.4-11.0 [facility] Blood erythrocytes count (nu mber/volume)Ordered By: Renard Burgos on 07-25-2022 RBC (Bld) [#/Vol] 4.45 10*6/uL 4.6-6.2 [facility] Blood hemoglobin measurement (mass/volume)Ordered By: Renard Burgos on 07-25-2022 Hemoglobin (Bld) [Mass/Vol] 13.4 g/dL 13.0-16.5 [facility] Blood lymphocytes/100 leukoc ytesOrdered By: Renard Burgos on 07-25-2022 Lymphocytes/100 WBC (Bld) 25.7 % 19-41 [facility] Blood monocytes/100 leukocyt esOrdered By: Renard Burgos on 07-25-2022 Monocytes/100 WBC (Bld) 8.4 % 0-10 [facility] Blood platelet mean volumeOr dered By: Renard Burgos on 07-25-2022 Platelet mean volume (Bld) [Entitic vol] 11.0 fL 6.2-12.0 [facility] Determination of erythrocyte mean corpuscular volume (MCV)Ordered By: Renard Burgos on 07-25-2022 MCV (RBC) [Entitic vol] 92.8 fL 80-94 [facility] Hematocrit Auto (Bld) [Volum e fraction]Ordered By: Renard Burgos on 07-25-2022 Hematocrit (Bld) [Volume fraction] 41.3 % 40-54 [facility] - Hematology and Cell countsOrdered By: Renard Burgos on 07-25-2022 Erythrocyte distribution width (RBC) [Entitic vol] 42.5 fL 35.1-43.9 [facility] Erythrocyte distribution width (RBC) [Ratio] 12.5 % 11.6-14.6 [facility] Immature granulocytes/100 WBC (Bld) 0.200 % 0.0-0.9 [facility] Comment on above: IG% - Immature Granu locytes (promyelocytes, myelocytes and metamyelocytes) > 1% indicates that a LEFT SHIFT is Present. MCH (RBC) [Entitic mass] 30.1 pg 27.0-32.0 [facility] Nucleated RBC/100 WBC (Bld) [Ratio] 0 % 0-5 [facility] MCHC Auto (RBC) [Mass/Vol]Or dered By: Renard Burgos on 07-25-2022 MCHC (RBC) [Mass/Vol] 32.4 g/dL 32-36 [facility] Platelets bldOrdered By: Lyubov Burgos on 07-25-2022 Platelets (Bld) [#/Vol] 200 10*3/uL 150-450 [facility] No Panel InformationOrdered By: Renard Burgos on 07-19-2022 Vitamin D 25-Hydroxy 34.2 ng/mL [facility] Comment on above: Vitamin D 25(OH) Sta tus Range Deficiency <20 ng/mL (50nmol/L) Insufficiency 20 - 30 ng/mL (50 - 75 nmol/L) Sufficiency 30 - 100 ng/mL (75 - 250 nmol/L) Toxicity >100 ng/mL (>250 nmol/L) Absolute lymphocyte countOrd ered By: Renard Burgos on 07-18-2022 Lymphocytes Auto (Unsp spec) [#/Vol] 2.48 10*3/uL 0.83-4.51 [facility] Basophil percentageOrdered B y: Renard Burgos on 07-18-2022 Basophils/100 WBC (Bld) 0.5 % 0-1 [facility] Eosinophils/100 WBC (Bld) 0.6 % 0-5 [facility] Neutrophils (Bld) [#/Vol] 5.9 10*3/uL 2.0-7.7 [facility] Neutrophils/100 WBC (Bld) 61.6 % 47-70 [facility] WBC (Bld) [#/Vol] 9.6 10*3/uL 4.4-11.0 [facility] Blood erythrocytes count (nu mber/volume)Ordered By: Renard Burgos on 07-18-2022 RBC (Bld) [#/Vol] 4.56 10*6/uL 4.6-6.2 [facility] Blood hemoglobin measurement (mass/volume)Ordered By: Renard Burgos on 07-18-2022 Hemoglobin (Bld) [Mass/Vol] 13.9 g/dL 13.0-16.5 [facility] Blood lymphocytes/100 leukoc ytesOrdered By: Renard Burgos on 07-18-2022 Lymphocytes/100 WBC (Bld) 25.9 % 19-41 [facility] Blood monocytes/100 leukocyt esOrdered By: Renard Burgos on 07-18-2022 Monocytes/100 WBC (Bld) 11.0 % 0-10 [facility] Blood platelet mean volumeOr dered By: Renard Burgos on 07-18-2022 Platelet mean volume (Bld) [Entitic vol] 11.3 fL 6.2-12.0 [facility] Determination of erythrocyte mean corpuscular volume (MCV)Ordered By: Renard Burgos on 07-18-2022 MCV (RBC) [Entitic vol] 93.9 fL 80-94 [facility] Hematocrit Auto (Bld) [Volum e fraction]Ordered By: Renard Burgos on 07-18-2022 Hematocrit (Bld) [Volume fraction] 42.8 % 40-54 [facility] - Hematology and Cell countsOrdered By: Renard Burgos on 07-18-2022 Erythrocyte distribution width (RBC) [Entitic vol] 44.0 fL 35.1-43.9 [facility] Erythrocyte distribution width (RBC) [Ratio] 12.8 % 11.6-14.6 [facility] Immature granulocytes/100 WBC (Bld) 0.400 % 0.0-0.9 [facility] Comment on above: IG% - Immature Granu locytes (promyelocytes, myelocytes and metamyelocytes) > 1% indicates that a LEFT SHIFT is Present. MCH (RBC) [Entitic mass] 30.5 pg 27.0-32.0 [facility] Nucleated RBC/100 WBC (Bld) [Ratio] 0 % 0-5 [facility] MCHC Auto (RBC) [Mass/Vol]Or dered By: Renard Burgos on 07-18-2022 MCHC (RBC) [Mass/Vol] 32.5 g/dL 32-36 [facility] Platelets bldOrdered By: Pet er Loretta on 07-18-2022 Platelets (Bld) [#/Vol] 207 10*3/uL 150-450 [facility] Absolute lymphocyte countOrd ered By: Renard Burgos on 07-11-2022 Lymphocytes Auto (Unsp spec) [#/Vol] 2.37 10*3/uL 0.83-4.51 [facility] Basophil percentageOrdered B y: Renard Burgos on 07-11-2022 Basophils/100 WBC (Bld) 0.6 % 0-1 [facility] Eosinophils/100 WBC (Bld) 0.5 % 0-5 [facility] Neutrophils (Bld) [#/Vol] 5.3 10*3/uL 2.0-7.7 [facility] Neutrophils/100 WBC (Bld) 61.8 % 47-70 [facility] WBC (Bld) [#/Vol] 8.5 10*3/uL 4.4-11.0 [facility] Blood erythrocytes count (nu mber/volume)Ordered By: Renard Burgos on 07-11-2022 RBC (Bld) [#/Vol] 4.83 10*6/uL 4.6-6.2 [facility] Blood hemoglobin measurement (mass/volume)Ordered By: Renard Burgos on 07-11-2022 Hemoglobin (Bld) [Mass/Vol] 14.7 g/dL 13.0-16.5 [facility] Blood lymphocytes/100 leukoc ytesOrdered By: Renard Burgos on 07-11-2022 Lymphocytes/100 WBC (Bld) 27.8 % 19-41 [facility] Blood monocytes/100 leukocyt esOrdered By: Renard Burgos on 07-11-2022 Monocytes/100 WBC (Bld) 8.8 % 0-10 [facility] Blood platelet mean volumeOr dered By: Renard Burgos on 07-11-2022 Platelet mean volume (Bld) [Entitic vol] 10.6 fL 6.2-12.0 [facility] Determination of erythrocyte mean corpuscular volume (MCV)Ordered By: Renard Burgos on 07-11-2022 MCV (RBC) [Entitic vol] 90.7 fL 80-94 [facility] Hematocrit Auto (Bld) [Volum e fraction]Ordered By: Renard Burgos on 07-11-2022 Hematocrit (Bld) [Volume fraction] 43.8 % 40-54 [facility] - Hematology and Cell countsOrdered By: Renard Burgos on 07-11-2022 Erythrocyte distribution width (RBC) [Entitic vol] 41.2 fL 35.1-43.9 [facility] Erythrocyte distribution width (RBC) [Ratio] 12.7 % 11.6-14.6 [facility] Immature granulocytes/100 WBC (Bld) 0.500 % 0.0-0.9 [facility] Comment on above: IG% - Immature Granu locytes (promyelocytes, myelocytes and metamyelocytes) > 1% indicates that a LEFT SHIFT is Present. MCH (RBC) [Entitic mass] 30.4 pg 27.0-32.0 [facility] Nucleated RBC/100 WBC (Bld) [Ratio] 0 % 0-5 [facility] MCHC Auto (RBC) [Mass/Vol]Or dered By: Renard Burgos on 07-11-2022 MCHC (RBC) [Mass/Vol] 33.6 g/dL 32-36 [facility] Platelets bldOrdered By: Lyubov Burgos on 07-11-2022 Platelets (Bld) [#/Vol] 207 10*3/uL 150-450 [facility] Absolute lymphocyte countOrd ered By: Renard Burgos on 07-04-2022 Lymphocytes Auto (Unsp spec) [#/Vol] 1.87 10*3/uL 0.83-4.51 [facility] Basophil percentageOrdered B y: Renard Burgos on 07-04-2022 Basophils/100 WBC (Bld) 0.4 % 0-1 [facility] Eosinophils/100 WBC (Bld) 0.5 % 0-5 [facility] Neutrophils (Bld) [#/Vol] 7.5 10*3/uL 2.0-7.7 [facility] Neutrophils/100 WBC (Bld) 72.8 % 47-70 [facility] WBC (Bld) [#/Vol] 10.3 10*3/uL 4.4-11.0 [facility] Blood erythrocytes count (nu mber/volume)Ordered By: Renard Burgos on 07-04-2022 RBC (Bld) [#/Vol] 4.45 10*6/uL 4.6-6.2 [facility] Blood hemoglobin measurement (mass/volume)Ordered By: Renard Burgos on 07-04-2022 Hemoglobin (Bld) [Mass/Vol] 13.5 g/dL 13.0-16.5 [facility] Blood lymphocytes/100 leukoc ytesOrdered By: Renard Burgos on 07-04-2022 Lymphocytes/100 WBC (Bld) 18.1 % 19-41 [facility] Blood monocytes/100 leukocyt esOrdered By: Renard Burgos on 07-04-2022 Monocytes/100 WBC (Bld) 7.7 % 0-10 [facility] Blood platelet mean volumeOr dered By: Renard Burgos on 07-04-2022 Platelet mean volume (Bld) [Entitic vol] 11.3 fL 6.2-12.0 [facility] Determination of erythrocyte mean corpuscular volume (MCV)Ordered By: Renard Burgos on 07-04-2022 MCV (RBC) [Entitic vol] 93.0 fL 80-94 [facility] Hematocrit Auto (Bld) [Volum e fraction]Ordered By: Renard Burgos on 07-04-2022 Hematocrit (Bld) [Volume fraction] 41.4 % 40-54 [facility] - Hematology and Cell countsOrdered By: Renard Burgos on 07-04-2022 Erythrocyte distribution width (RBC) [Entitic vol] 43.0 fL 35.1-43.9 [facility] Erythrocyte distribution width (RBC) [Ratio] 12.5 % 11.6-14.6 [facility] Immature granulocytes/100 WBC (Bld) 0.500 % 0.0-0.9 [facility] Comment on above: IG% - Immature Granu locytes (promyelocytes, myelocytes and metamyelocytes) > 1% indicates that a LEFT SHIFT is Present. MCH (RBC) [Entitic mass] 30.3 pg 27.0-32.0 [facility] Nucleated RBC/100 WBC (Bld) [Ratio] 0 % 0-5 [facility] MCHC Auto (RBC) [Mass/Vol]Or dered By: Renard Burgos on 07-04-2022 MCHC (RBC) [Mass/Vol] 32.6 g/dL 32-36 [facility] Platelets bldOrdered By: Lyubov Burgos on 07-04-2022 Platelets (Bld) [#/Vol] 211 10*3/uL 150-450 [facility] Absolute lymphocyte countOrd ered By: Renard Burgos on 06-27-2022 Lymphocytes Auto (Unsp spec) [#/Vol] 1.83 10*3/uL 0.83-4.51 [facility] Basophil percentageOrdered B y: Renard Burgos on 06-27-2022 Basophils/100 WBC (Bld) 0.4 % 0-1 [facility] Eosinophils/100 WBC (Bld) 0.5 % 0-5 [facility] Neutrophils (Bld) [#/Vol] 5.0 10*3/uL 2.0-7.7 [facility] Neutrophils/100 WBC (Bld) 67.6 % 47-70 [facility] WBC (Bld) [#/Vol] 7.4 10*3/uL 4.4-11.0 [facility] Blood erythrocytes count (nu mber/volume)Ordered By: Renard Burgos on 06-27-2022 RBC (Bld) [#/Vol] 4.52 10*6/uL 4.6-6.2 [facility] Blood hemoglobin measurement (mass/volume)Ordered By: Renard Burgos on 06-27-2022 Hemoglobin (Bld) [Mass/Vol] 13.9 g/dL 13.0-16.5 [facility] Blood lymphocytes/100 leukoc ytesOrdered By: Renard Burgos on 06-27-2022 Lymphocytes/100 WBC (Bld) 24.7 % 19-41 [facility] Blood monocytes/100 leukocyt esOrdered By: Renard Burgos on 06-27-2022 Monocytes/100 WBC (Bld) 6.4 % 0-10 [facility] Blood platelet mean volumeOr dered By: Renard Burgos on 06-27-2022 Platelet mean volume (Bld) [Entitic vol] 10.7 fL 6.2-12.0 [facility] Determination of erythrocyte mean corpuscular volume (MCV)Ordered By: Renard Burgos on 06-27-2022 MCV (RBC) [Entitic vol] 91.2 fL 80-94 [facility] Hematocrit Auto (Bld) [Volum e fraction]Ordered By: Renard Burgos on 06-27-2022 Hematocrit (Bld) [Volume fraction] 41.2 % 40-54 [facility] Laboratory - Hematology and Cell countsOrdered By: Renard Burgos on 06-27-2022 Erythrocyte distribution width (RBC) [Entitic vol] 41.9 fL 35.1-43.9 [facility] Erythrocyte distribution width (RBC) [Ratio] 12.7 % 11.6-14.6 [facility] Immature granulocytes/100 WBC (Bld) 0.400 % 0.0-0.9 [facility] Comment on above: IG% - Immature Granu locytes (promyelocytes, myelocytes and metamyelocytes) > 1% indicates that a LEFT SHIFT is Present. MCH (RBC) [Entitic mass] 30.8 pg 27.0-32.0 [facility] Nucleated RBC/100 WBC (Bld) [Ratio] 0 % 0-5 [facility] MCHC Auto (RBC) [Mass/Vol]Or dered By: Renard Burgos on 06-27-2022 MCHC (RBC) [Mass/Vol] 33.7 g/dL 32-36 [facility] Platelets bldOrdered By: Lyubov Burgos on 06-27-2022 Platelets (Bld) [#/Vol] 200 10*3/uL 150-450 [facility] Absolute lymphocyte countOrd ered By: Renard Burgos on 06-20-2022 Lymphocytes Auto (Unsp spec) [#/Vol] 1.57 10*3/uL 0.83-4.51 [facility] Basophil percentageOrdered B y: Renard Burgos on 06-20-2022 Basophils/100 WBC (Bld) 0.2 % 0-1 [facility] Eosinophils/100 WBC (Bld) 0.2 % 0-5 [facility] Neutrophils (Bld) [#/Vol] 6.5 10*3/uL 2.0-7.7 [facility] Neutrophils/100 WBC (Bld) 74.5 % 47-70 [facility] WBC (Bld) [#/Vol] 8.8 10*3/uL 4.4-11.0 [facility] Blood erythrocytes count (nu mber/volume)Ordered By: Renard Burgos on 06-20-2022 RBC (Bld) [#/Vol] 4.79 10*6/uL 4.6-6.2 [facility] Blood hemoglobin measurement (mass/volume)Ordered By: Renard Burgos on 06-20-2022 Hemoglobin (Bld) [Mass/Vol] 14.6 g/dL 13.0-16.5 [facility] Blood lymphocytes/100 leukoc ytesOrdered By: Renard Burgos on 06-20-2022 Lymphocytes/100 WBC (Bld) 17.8 % 19-41 [facility] Blood monocytes/100 leukocyt esOrdered By: Renard Burgos on 06-20-2022 Monocytes/100 WBC (Bld) 7.0 % 0-10 [facility] Blood platelet mean volumeOr dered By: Renard Burgos on 06-20-2022 Platelet mean volume (Bld) [Entitic vol] 11.1 fL 6.2-12.0 [facility] Determination of erythrocyte mean corpuscular volume (MCV)Ordered By: Renard Burgos on 06-20-2022 MCV (RBC) [Entitic vol] 92.1 fL 80-94 [facility] Hematocrit Auto (Bld) [Volum e fraction]Ordered By: Renard Burgos on 06-20-2022 Hematocrit (Bld) [Volume fraction] 44.1 % 40-54 [facility] Laboratory - Hematology and Cell countsOrdered By: Renard Burgos on 06-20-2022 Erythrocyte distribution width (RBC) [Entitic vol] 42.4 fL 35.1-43.9 [facility] Erythrocyte distribution width (RBC) [Ratio] 12.6 % 11.6-14.6 [facility] Immature granulocytes/100 WBC (Bld) 0.300 % 0.0-0.9 [facility] Comment on above: IG% - Immature Granu locytes (promyelocytes, myelocytes and metamyelocytes) > 1% indicates that a LEFT SHIFT is Present. MCH (RBC) [Entitic mass] 30.5 pg 27.0-32.0 [facility] Nucleated RBC/100 WBC (Bld) [Ratio] 0 % 0-5 [facility] MCHC Auto (RBC) [Mass/Vol]Or dered By: Renard Burgos on 06-20-2022 MCHC (RBC) [Mass/Vol] 33.1 g/dL 32-36 [facility] Platelets bldOrdered By: Lyubov Burgos on 06-20-2022 Platelets (Bld) [#/Vol] 207 10*3/uL 150-450 [facility] Absolute lymphocyte countOrd ered By: Renard Burgos on 06-13-2022 Lymphocytes Auto (Unsp spec) [#/Vol] 2.28 10*3/uL 0.83-4.51 [facility] Basophil percentageOrdered B y: Renard Burgos on 06-13-2022 Basophils/100 WBC (Bld) 0.5 % 0-1 [facility] Eosinophils/100 WBC (Bld) 0.4 % 0-5 [facility] Neutrophils (Bld) [#/Vol] 6.0 10*3/uL 2.0-7.7 [facility] Neutrophils/100 WBC (Bld) 65.6 % 47-70 [facility] WBC (Bld) [#/Vol] 9.2 10*3/uL 4.4-11.0 [facility] Blood erythrocytes count (nu mber/volume)Ordered By: Renard Burgos on 06-13-2022 RBC (Bld) [#/Vol] 4.55 10*6/uL 4.6-6.2 [facility] Blood hemoglobin measurement (mass/volume)Ordered By: Renard Burgos on 06-13-2022 Hemoglobin (Bld) [Mass/Vol] 13.7 g/dL 13.0-16.5 [facility] Blood lymphocytes/100 leukoc ytesOrdered By: Renard Burgos on 06-13-2022 Lymphocytes/100 WBC (Bld) 24.9 % 19-41 [facility] Blood monocytes/100 leukocyt esOrdered By: Renard Burgos on 06-13-2022 Monocytes/100 WBC (Bld) 8.2 % 0-10 [facility] Blood platelet mean volumeOr dered By: Renard Burgos on 06-13-2022 Platelet mean volume (Bld) [Entitic vol] 10.9 fL 6.2-12.0 [facility] Determination of erythrocyte mean corpuscular volume (MCV)Ordered By: Renard Burgos on 06-13-2022 MCV (RBC) [Entitic vol] 92.3 fL 80-94 [facility] Hematocrit Auto (Bld) [Volum e fraction]Ordered By: Renard Burgos on 06-13-2022 Hematocrit (Bld) [Volume fraction] 42.0 % 40-54 [facility] Laboratory - Hematology and Cell countsOrdered By: Renard Burgos on 06-13-2022 Erythrocyte distribution width (RBC) [Entitic vol] 43.2 fL 35.1-43.9 [facility] Erythrocyte distribution width (RBC) [Ratio] 12.8 % 11.6-14.6 [facility] Immature granulocytes/100 WBC (Bld) 0.400 % 0.0-0.9 [facility] Comment on above: IG% - Immature Granu locytes (promyelocytes, myelocytes and metamyelocytes) > 1% indicates that a LEFT SHIFT is Present. MCH (RBC) [Entitic mass] 30.1 pg 27.0-32.0 [facility] Nucleated RBC/100 WBC (Bld) [Ratio] 0 % 0-5 [facility] MCHC Auto (RBC) [Mass/Vol]Or dered By: Renard Burgos on 06-13-2022 MCHC (RBC) [Mass/Vol] 32.6 g/dL 32-36 [facility] Platelets bldOrdered By: Pet lizy Loretta on 06-13-2022 Platelets (Bld) [#/Vol] 203 10*3/uL 150-450 [facility] Absolute lymphocyte countOrd ered By: Renard Burgos on 06-06-2022 Lymphocytes Auto (Unsp spec) [#/Vol] 2.02 10*3/uL 0.83-4.51 [facility] Basophil percentageOrdered B y: Renard Burgos on 06-06-2022 Basophils/100 WBC (Bld) 0.5 % 0-1 [facility] Eosinophils/100 WBC (Bld) 0.7 % 0-5 [facility] Neutrophils (Bld) [#/Vol] 4.7 10*3/uL 2.0-7.7 [facility] Neutrophils/100 WBC (Bld) 63.3 % 47-70 [facility] WBC (Bld) [#/Vol] 7.4 10*3/uL 4.4-11.0 [facility] Blood erythrocytes count (nu mber/volume)Ordered By: Renard Burgos on 06-06-2022 RBC (Bld) [#/Vol] 4.57 10*6/uL 4.6-6.2 [facility] Blood hemoglobin measurement (mass/volume)Ordered By: Renard Burgos on 06-06-2022 Hemoglobin (Bld) [Mass/Vol] 14.0 g/dL 13.0-16.5 [facility] Blood lymphocytes/100 leukoc ytesOrdered By: Renard Burgos on 06-06-2022 Lymphocytes/100 WBC (Bld) 27.2 % 19-41 [facility] Blood monocytes/100 leukocyt esOrdered By: Renard Burgos on 06-06-2022 Monocytes/100 WBC (Bld) 7.9 % 0-10 [facility] Blood platelet mean volumeOr dered By: Renard Burgos on 06-06-2022 Platelet mean volume (Bld) [Entitic vol] 10.7 fL 6.2-12.0 [facility] Determination of erythrocyte mean corpuscular volume (MCV)Ordered By: Renard Burgos on 06-06-2022 MCV (RBC) [Entitic vol] 90.2 fL 80-94 [facility] Hematocrit Auto (Bld) [Volum e fraction]Ordered By: Renard Burgos on 06-06-2022 Hematocrit (Bld) [Volume fraction] 41.2 % 40-54 [facility] Laboratory - Hematology and Cell countsOrdered By: Renard Burgos on 06-06-2022 Erythrocyte distribution width (RBC) [Entitic vol] 41.5 fL 35.1-43.9 [facility] Erythrocyte distribution width (RBC) [Ratio] 12.7 % 11.6-14.6 [facility] Immature granulocytes/100 WBC (Bld) 0.400 % 0.0-0.9 [facility] Comment on above: IG% - Immature Granu locytes (promyelocytes, myelocytes and metamyelocytes) > 1% indicates that a LEFT SHIFT is Present. MCH (RBC) [Entitic mass] 30.6 pg 27.0-32.0 [facility] Nucleated RBC/100 WBC (Bld) [Ratio] 0 % 0-5 [facility] MCHC Auto (RBC) [Mass/Vol]Or dered By: Renard Burgos on 06-06-2022 MCHC (RBC) [Mass/Vol] 34.0 g/dL 32-36 [facility] Platelets bldOrdered By: Lyubov Burgos on 06-06-2022 Platelets (Bld) [#/Vol] 197 10*3/uL 150-450 [facility] Absolute lymphocyte countOrd ered By: Renard Burgos on 05-30-2022 Lymphocytes Auto (Unsp spec) [#/Vol] 2.32 10*3/uL 0.83-4.51 [facility] Basophil percentageOrdered B y: Renard Burgos on 05-30-2022 Basophils/100 WBC (Bld) 0.4 % 0-1 [facility] Eosinophils/100 WBC (Bld) 0.5 % 0-5 [facility] Neutrophils (Bld) [#/Vol] 5.2 10*3/uL 2.0-7.7 [facility] Neutrophils/100 WBC (Bld) 62.6 % 47-70 [facility] WBC (Bld) [#/Vol] 8.3 10*3/uL 4.4-11.0 [facility] Blood erythrocytes count (nu mber/volume)Ordered By: Renard Burgos on 05-30-2022 RBC (Bld) [#/Vol] 4.87 10*6/uL 4.6-6.2 [facility] Blood hemoglobin measurement (mass/volume)Ordered By: Renard Burgos on 05-30-2022 Hemoglobin (Bld) [Mass/Vol] 14.6 g/dL 13.0-16.5 [facility] Blood lymphocytes/100 leukoc ytesOrdered By: Renard Burgos on 05-30-2022 Lymphocytes/100 WBC (Bld) 27.9 % 19-41 [facility] Blood monocytes/100 leukocyt esOrdered By: Renard Burgos on 05-30-2022 Monocytes/100 WBC (Bld) 8.0 % 0-10 [facility] Blood platelet mean volumeOr dered By: Renard Burgos on 05-30-2022 Platelet mean volume (Bld) [Entitic vol] 10.9 fL 6.2-12.0 [facility] Determination of erythrocyte mean corpuscular volume (MCV)Ordered By: Renard Burgos on 05-30-2022 MCV (RBC) [Entitic vol] 91.6 fL 80-94 [facility] Hematocrit Auto (Bld) [Volum e fraction]Ordered By: Renard Burgos on 05-30-2022 Hematocrit (Bld) [Volume fraction] 44.6 % 40-54 [facility] Laboratory - Hematology and Cell countsOrdered By: Renard Burgos on 05-30-2022 Erythrocyte distribution width (RBC) [Entitic vol] 42.4 fL 35.1-43.9 [facility] Erythrocyte distribution width (RBC) [Ratio] 12.6 % 11.6-14.6 [facility] Immature granulocytes/100 WBC (Bld) 0.600 % 0.0-0.9 [facility] Comment on above: IG% - Immature Granu locytes (promyelocytes, myelocytes and metamyelocytes) > 1% indicates that a LEFT SHIFT is Present. MCH (RBC) [Entitic mass] 30.0 pg 27.0-32.0 [facility] Nucleated RBC/100 WBC (Bld) [Ratio] 0 % 0-5 [facility] MCHC Auto (RBC) [Mass/Vol]Or dered By: Renard Burgos on 05-30-2022 MCHC (RBC) [Mass/Vol] 32.7 g/dL 32-36 [facility] Platelets bldOrdered By: Lyubov Burgos on 05-30-2022 Platelets (Bld) [#/Vol] 213 10*3/uL 150-450 [facility] Absolute lymphocyte countOrd ered By: Renard Burgos on 05-23-2022 Lymphocytes Auto (Unsp spec) [#/Vol] 2.07 10*3/uL 0.83-4.51 [facility] Basophil percentageOrdered B y: Renard Burgos on 05-23-2022 Basophils/100 WBC (Bld) 0.5 % 0-1 [facility] Eosinophils/100 WBC (Bld) 0.4 % 0-5 [facility] Neutrophils (Bld) [#/Vol] 5.7 10*3/uL 2.0-7.7 [facility] Neutrophils/100 WBC (Bld) 66.5 % 47-70 [facility] WBC (Bld) [#/Vol] 8.5 10*3/uL 4.4-11.0 [facility] Blood erythrocytes count (nu mber/volume)Ordered By: Renard Burgos on 05-23-2022 RBC (Bld) [#/Vol] 4.75 10*6/uL 4.6-6.2 [facility] Blood hemoglobin measurement (mass/volume)Ordered By: Renard Burgos on 05-23-2022 Hemoglobin (Bld) [Mass/Vol] 14.3 g/dL 13.0-16.5 [facility] Blood lymphocytes/100 leukoc ytesOrdered By: Renard Burgos on 05-23-2022 Lymphocytes/100 WBC (Bld) 24.4 % 19-41 [facility] Blood monocytes/100 leukocyt esOrdered By: Renard Burgos on 05-23-2022 Monocytes/100 WBC (Bld) 7.7 % 0-10 [facility] Blood platelet mean volumeOr dered By: Renard Burgos on 05-23-2022 Platelet mean volume (Bld) [Entitic vol] 11.1 fL 6.2-12.0 [facility] Determination of erythrocyte mean corpuscular volume (MCV)Ordered By: Renard Burgos on 05-23-2022 MCV (RBC) [Entitic vol] 90.9 fL 80-94 [facility] Hematocrit Auto (Bld) [Volum e fraction]Ordered By: Renard Burgos on 05-23-2022 Hematocrit (Bld) [Volume fraction] 43.2 % 40-54 [facility] - Hematology and Cell countsOrdered By: Renard Burgos on 05-23-2022 Erythrocyte distribution width (RBC) [Entitic vol] 41.7 fL 35.1-43.9 [facility] Erythrocyte distribution width (RBC) [Ratio] 12.5 % 11.6-14.6 [facility] Immature granulocytes/100 WBC (Bld) 0.500 % 0.0-0.9 [facility] Comment on above: IG% - Immature Granu locytes (promyelocytes, myelocytes and metamyelocytes) > 1% indicates that a LEFT SHIFT is Present. MCH (RBC) [Entitic mass] 30.1 pg 27.0-32.0 [facility] Nucleated RBC/100 WBC (Bld) [Ratio] 0 % 0-5 [facility] MCHC Auto (RBC) [Mass/Vol]Or dered By: Renard Burgos on 05-23-2022 MCHC (RBC) [Mass/Vol] 33.1 g/dL 32-36 [facility] Platelets bldOrdered By: Lyubov Burgos on 05-23-2022 Platelets (Bld) [#/Vol] 213 10*3/uL 150-450 [facility] No Panel Informationon 05-20 Dejah Hazel DO 05/20/2022 7:32 PM Feeding Tube Replacement Performed by: Dejah Hazel DO Authorized by: Abelardo Rios DO Consent: Consent obtained: Verbal Consent given by: Patient [place] protocol: Patient identity confirmed: Verbally with patient [...] Procedure completion: Tolerated well, no immediate complications [facility] XR Abdomen Single viewon G-tube position is within the stomach. No evidence of contrast extravasation. Report Dictated on Electronically Signed By: Jason Tran Electronically Signed Date/Time: 05/20/2022 7:38 PM EST [facility] Patient Name: KATHYA HOOPER Exam Date/Time: 05/20/2022 19:18 Procedure: XR ABDOMEN 1 VIEW Ordering Provider: RIOS TYLER Reason For Exam: SUPINE ABDOMEN (KUB) CLINICAL INDICATION: confirm placement of G tube A supine plain film of the abdomen was obtained. Repeat abdominal radiographs following hand injection of enteric contrast via the patient's enteric tube. (Gastrografin 30 mL). COMPARISON: None FINDINGS: On the boring machine operator double end image, no dilated bowel loops are identified. Feeding tube overlies the epigastric region of the abdomen. On the postcontrast images, there is a small amount of enteric contrast in the stomach and contrast is present throughout the proximal duodenum. No extravasated contrast is evident. [facility] Jason Tran M D - 05/20/2022 [...] 30 mL). COMPARISON: None FINDINGS: On the boring machine operator double end image, no dilated bowel loops are identified. [...] Electronically Signed Date/Time: 05/20/2022 7:[address] [facility] Radiology Study observation (narrative) [facility] XR Abdomen Single viewOrdere d By: Jason Tran on 05-20-2022 [facility] Work Phone: Absolute lymphocyte countOrd ered By: Renard Burgos on 05-16-2022 Lymphocytes Auto (Unsp spec) [#/Vol] 2.06 10*3/uL 0.83-4.51 [facility] Basophil percentageOrdered B y: Renard Burgos on 05-16-2022 Basophils/100 WBC (Bld) 0.6 % 0-1 [facility] Eosinophils/100 WBC (Bld) 0.6 % 0-5 [facility] Neutrophils (Bld) [#/Vol] 4.4 10*3/uL 2.0-7.7 [facility] Neutrophils/100 WBC (Bld) 61.2 % 47-70 [facility] WBC (Bld) [#/Vol] 7.1 10*3/uL 4.4-11.0 [facility] Blood erythrocytes count (nu mber/volume)Ordered By: Renard Burgos on 05-16-2022 RBC (Bld) [#/Vol] 4.58 10*6/uL 4.6-6.2 [facility] Blood hemoglobin measurement (mass/volume)Ordered By: Renard Burgos on 05-16-2022 Hemoglobin (Bld) [Mass/Vol] 13.9 g/dL 13.0-16.5 [facility] Blood lymphocytes/100 leukoc ytesOrdered By: Renard Burgos on 05-16-2022 Lymphocytes/100 WBC (Bld) 29.0 % 19-41 [facility] Blood monocytes/100 leukocyt esOrdered By: Renard Burgos on 05-16-2022 Monocytes/100 WBC (Bld) 8.2 % 0-10 [facility] Blood platelet mean volumeOr dered By: Renard Burgos on 05-16-2022 Platelet mean volume (Bld) [Entitic vol] 11.1 fL 6.2-12.0 [facility] Determination of erythrocyte mean corpuscular volume (MCV)Ordered By: Renard Burgos on 05-16-2022 MCV (RBC) [Entitic vol] 91.5 fL 80-94 [facility] Hematocrit Auto (Bld) [Volum e fraction]Ordered By: Renard Burgos on 05-16-2022 Hematocrit (Bld) [Volume fraction] 41.9 % 40-54 [facility] - Hematology and Cell countsOrdered By: Renard Burgos on 05-16-2022 Erythrocyte distribution width (RBC) [Entitic vol] 41.3 fL 35.1-43.9 [facility] Erythrocyte distribution width (RBC) [Ratio] 12.5 % 11.6-14.6 [facility] Immature granulocytes/100 WBC (Bld) 0.400 % 0.0-0.9 [facility] Comment on above: IG% - Immature Granu locytes (promyelocytes, myelocytes and metamyelocytes) > 1% indicates that a LEFT SHIFT is Present. MCH (RBC) [Entitic mass] 30.3 pg 27.0-32.0 [facility] Nucleated RBC/100 WBC (Bld) [Ratio] 0 % 0-5 [facility] MCHC Auto (RBC) [Mass/Vol]Or dered By: Renard Burgos on 05-16-2022 MCHC (RBC) [Mass/Vol] 33.2 g/dL 32-36 [facility] Platelets bldOrdered By: Lyubov Burgos on 05-16-2022 Platelets (Bld) [#/Vol] 205 10*3/uL 150-450 [facility] Absolute lymphocyte countOrd ered By: Renard Burgos on 05-09-2022 Lymphocytes Auto (Unsp spec) [#/Vol] 1.92 10*3/uL 0.83-4.51 [facility] Basophil percentageOrdered B y: Renard Burgos on 05-09-2022 Basophils/100 WBC (Bld) 0.7 % 0-1 [facility] Eosinophils/100 WBC (Bld) 0.7 % 0-5 [facility] Neutrophils (Bld) [#/Vol] 4.3 10*3/uL 2.0-7.7 [facility] Neutrophils/100 WBC (Bld) 60.9 % 47-70 [facility] WBC (Bld) [#/Vol] 7.1 10*3/uL 4.4-11.0 [facility] Blood erythrocytes count (nu mber/volume)Ordered By: Renard Burgos on 05-09-2022 RBC (Bld) [#/Vol] 4.67 10*6/uL 4.6-6.2 [facility] Blood hemoglobin measurement (mass/volume)Ordered By: Renard Burgos on 05-09-2022 Hemoglobin (Bld) [Mass/Vol] 14.1 g/dL 13.0-16.5 [facility] Blood lymphocytes/100 leukoc ytesOrdered By: Renard Burgos on 05-09-2022 Lymphocytes/100 WBC (Bld) 27.2 % 19-41 [facility] Blood monocytes/100 leukocyt esOrdered By: Renard Burgos on 05-09-2022 Monocytes/100 WBC (Bld) 10.2 % 0-10 [facility] Blood platelet mean volumeOr dered By: Renard Burgos on 05-09-2022 Platelet mean volume (Bld) [Entitic vol] 11.5 fL 6.2-12.0 [facility] Determination of erythrocyte mean corpuscular volume (MCV)Ordered By: Renard Burgos on 05-09-2022 MCV (RBC) [Entitic vol] 91.0 fL 80-94 [facility] Hematocrit Auto (Bld) [Volum e fraction]Ordered By: Renard Burgos on 05-09-2022 Hematocrit (Bld) [Volume fraction] 42.5 % 40-54 [facility] - Hematology and Cell countsOrdered By: Renard Burgos on 05-09-2022 Erythrocyte distribution width (RBC) [Entitic vol] 41.4 fL 35.1-43.9 [facility] Erythrocyte distribution width (RBC) [Ratio] 12.7 % 11.6-14.6 [facility] Immature granulocytes/100 WBC (Bld) 0.300 % 0.0-0.9 [facility] Comment on above: IG% - Immature Granu locytes (promyelocytes, myelocytes and metamyelocytes) > 1% indicates that a LEFT SHIFT is Present. MCH (RBC) [Entitic mass] 30.2 pg 27.0-32.0 [facility] Nucleated RBC/100 WBC (Bld) [Ratio] 0.4 % 0-5 [facility] MCHC Auto (RBC) [Mass/Vol]Or dered By: Renard Burgos on 05-09-2022 MCHC (RBC) [Mass/Vol] 33.2 g/dL 32-36 [facility] Platelets bldOrdered By: Pet lizy Burgos on 05-09-2022 Platelets (Bld) [#/Vol] 202 10*3/uL 150-450 [facility] Absolute lymphocyte countOrd ered By: Renard Burgos on 05-03-2022 Lymphocytes Auto (Unsp spec) [#/Vol] 1.86 10*3/uL 0.83-4.51 [facility] Basophil percentageOrdered B y: Renard Burgos on 05-03-2022 Basophils/100 WBC (Bld) 0.3 % 0-1 [facility] Eosinophils/100 WBC (Bld) 0.3 % 0-5 [facility] Neutrophils (Bld) [#/Vol] 6.4 10*3/uL 2.0-7.7 [facility] Neutrophils/100 WBC (Bld) 71.9 % 47-70 [facility] WBC (Bld) [#/Vol] 8.9 10*3/uL 4.4-11.0 [facility] Blood erythrocytes count (nu mber/volume)Ordered By: Renard Burgos on 05-03-2022 RBC (Bld) [#/Vol] 4.65 10*6/uL 4.6-6.2 [facility] Blood hemoglobin measurement (mass/volume)Ordered By: Renard Burgos on 05-03-2022 Hemoglobin (Bld) [Mass/Vol] 14.5 g/dL 13.0-16.5 [facility] Blood lymphocytes/100 leukoc ytesOrdered By: Renard Burgos on 05-03-2022 Lymphocytes/100 WBC (Bld) 20.9 % 19-41 [facility] Blood monocytes/100 leukocyt esOrdered By: Renard Burgos on 05-03-2022 Monocytes/100 WBC (Bld) 6.2 % 0-10 [facility] Blood platelet mean volumeOr dered By: Renard Burgos on 05-03-2022 Platelet mean volume (Bld) [Entitic vol] 11.1 fL 6.2-12.0 [facility] Determination of erythrocyte mean corpuscular volume (MCV)Ordered By: Renard Burgos on 05-03-2022 MCV (RBC) [Entitic vol] 90.1 fL 80-94 [facility] Hematocrit Auto (Bld) [Volum e fraction]Ordered By: Renard Burgos on 05-03-2022 Hematocrit (Bld) [Volume fraction] 41.9 % 40-54 [facility] - Hematology and Cell countsOrdered By: Renard Burgos on 05-03-2022 Erythrocyte distribution width (RBC) [Entitic vol] 39.7 fL 35.1-43.9 [facility] Erythrocyte distribution width (RBC) [Ratio] 12.2 % 11.6-14.6 [facility] Immature granulocytes/100 WBC (Bld) 0.400 % 0.0-0.9 [facility] Comment on above: IG% - Immature Granu locytes (promyelocytes, myelocytes and metamyelocytes) > 1% indicates that a LEFT SHIFT is Present. MCH (RBC) [Entitic mass] 31.2 pg 27.0-32.0 [facility] Nucleated RBC/100 WBC (Bld) [Ratio] 0 % 0-5 [facility] MCHC Auto (RBC) [Mass/Vol]Or dered By: Renard Burgos on 05-03-2022 MCHC (RBC) [Mass/Vol] 34.6 g/dL 32-36 [facility] Platelets bldOrdered By: Lyubov Burgos on 05-03-2022 Platelets (Bld) [#/Vol] 203 10*3/uL 150-450 [facility] Absolute lymphocyte countOrd ered By: Renard Burgos on 04-26-2022 Lymphocytes Auto (Unsp spec) [#/Vol] 2.79 10*3/uL 0.83-4.51 [facility] Basophil percentageOrdered B y: Renard Burgos on 04-26-2022 Basophils/100 WBC (Bld) 0.4 % 0-1 [facility] Eosinophils/100 WBC (Bld) 0.4 % 0-5 [facility] Neutrophils (Bld) [#/Vol] 5.9 10*3/uL 2.0-7.7 [facility] Neutrophils/100 WBC (Bld) 60.9 % 47-70 [facility] WBC (Bld) [#/Vol] 9.7 10*3/uL 4.4-11.0 [facility] Blood erythrocytes count (nu mber/volume)Ordered By: Renard Burgos on 04-26-2022 RBC (Bld) [#/Vol] 4.92 10*6/uL 4.6-6.2 [facility] Blood hemoglobin measurement (mass/volume)Ordered By: Renard Burgos on 04-26-2022 Hemoglobin (Bld) [Mass/Vol] 15.2 g/dL 13.0-16.5 [facility] Blood lymphocytes/100 leukoc ytesOrdered By: Renard Burgos on 04-26-2022 Lymphocytes/100 WBC (Bld) 28.9 % 19-41 [facility] Blood monocytes/100 leukocyt esOrdered By: Renard Burgos on 04-26-2022 Monocytes/100 WBC (Bld) 9.0 % 0-10 [facility] Blood platelet mean volumeOr dered By: Renard Burgos on 04-26-2022 Platelet mean volume (Bld) [Entitic vol] 11.0 fL 6.2-12.0 [facility] Determination of erythrocyte mean corpuscular volume (MCV)Ordered By: Renard Burgos on 04-26-2022 MCV (RBC) [Entitic vol] 92.3 fL 80-94 [facility] Hematocrit Auto (Bld) [Volum e fraction]Ordered By: Renard Burgos on 04-26-2022 Hematocrit (Bld) [Volume fraction] 45.4 % 40-54 [facility] - Hematology and Cell countsOrdered By: Renard Burgos on 04-26-2022 Erythrocyte distribution width (RBC) [Entitic vol] 42.1 fL 35.1-43.9 [facility] Erythrocyte distribution width (RBC) [Ratio] 12.5 % 11.6-14.6 [facility] Immature granulocytes/100 WBC (Bld) 0.400 % 0.0-0.9 [facility] Comment on above: IG% - Immature Granu locytes (promyelocytes, myelocytes and metamyelocytes) > 1% indicates that a LEFT SHIFT is Present. MCH (RBC) [Entitic mass] 30.9 pg 27.0-32.0 [facility] Nucleated RBC/100 WBC (Bld) [Ratio] 0 % 0-5 [facility] MCHC Auto (RBC) [Mass/Vol]Or dered By: Renard Burgos on 04-26-2022 MCHC (RBC) [Mass/Vol] 33.5 g/dL 32-36 [facility] Platelets bldOrdered By: Lyubov Burgos on 04-26-2022 Platelets (Bld) [#/Vol] 178 10*3/uL 150-450 [facility] Absolute lymphocyte countOrd ered By: Renard Burgos on 04-18-2022 Lymphocytes Auto (Unsp spec) [#/Vol] 2.03 10*3/uL 0.83-4.51 [facility] Basophil percentageOrdered B y: Renard Burgos on 04-18-2022 Basophils/100 WBC (Bld) 0.6 % 0-1 [facility] Eosinophils/100 WBC (Bld) 0.6 % 0-5 [facility] Neutrophils (Bld) [#/Vol] 4.5 10*3/uL 2.0-7.7 [facility] Neutrophils/100 WBC (Bld) 62.0 % 47-70 [facility] WBC (Bld) [#/Vol] 7.2 10*3/uL 4.4-11.0 [facility] Blood erythrocytes count (nu mber/volume)Ordered By: Renard Burgos on 04-18-2022 RBC (Bld) [#/Vol] 4.67 10*6/uL 4.6-6.2 [facility] Blood hemoglobin measurement (mass/volume)Ordered By: Renard Burgos on 04-18-2022 Hemoglobin (Bld) [Mass/Vol] 14.5 g/dL 13.0-16.5 [facility] Blood lymphocytes/100 leukoc ytesOrdered By: Renard Burgos on 04-18-2022 Lymphocytes/100 WBC (Bld) 28.2 % 19-41 [facility] Blood monocytes/100 leukocyt esOrdered By: Renard Burgos on 04-18-2022 Monocytes/100 WBC (Bld) 8.2 % 0-10 [facility] Blood platelet mean volumeOr dered By: Renard Burgos on 04-18-2022 Platelet mean volume (Bld) [Entitic vol] 11.2 fL 6.2-12.0 [facility] Determination of erythrocyte mean corpuscular volume (MCV)Ordered By: Renard Burgos on 04-18-2022 MCV (RBC) [Entitic vol] 90.8 fL 80-94 [facility] Hematocrit Auto (Bld) [Volum e fraction]Ordered By: Renard Burgos on 04-18-2022 Hematocrit (Bld) [Volume fraction] 42.4 % 40-54 [facility] Laboratory - Hematology and Cell countsOrdered By: Renard Burgos on 04-18-2022 Erythrocyte distribution width (RBC) [Entitic vol] 41.1 fL 35.1-43.9 [facility] Erythrocyte distribution width (RBC) [Ratio] 12.5 % 11.6-14.6 [facility] Immature granulocytes/100 WBC (Bld) 0.400 % 0.0-0.9 [facility] Comment on above: IG% - Immature Granu locytes (promyelocytes, myelocytes and metamyelocytes) > 1% indicates that a LEFT SHIFT is Present. MCH (RBC) [Entitic mass] 31.0 pg 27.0-32.0 [facility] Nucleated RBC/100 WBC (Bld) [Ratio] 0 % 0-5 [facility] MCHC Auto (RBC) [Mass/Vol]Or dered By: Renard Burgos on 04-18-2022 MCHC (RBC) [Mass/Vol] 34.2 g/dL 32-36 [facility] Platelets bldOrdered By: Lyubov Burgos on 04-18-2022 Platelets (Bld) [#/Vol] 196 10*3/uL 150-450 [facility] Basophil percentageOrdered B y: Renard Burgos on 04-14-2022 Bilirubin [Mass/Vol] 0.40 mg/dL 0.20-1.00 [facility] Comment on above: For patients on eltr ombopag therapy, use of Dimension [place] TBIL is not recommended. Protein [Mass/Vol] 6.3 g/dL 6.4-8.2 [facility] Direct bilirubinOrdered By: Renard Burgos on 04-14-2022 Bilirubin.direct [Mass/Vol] 0.12 mg/dL 0.00-0.30 [facility] Laboratory - Chemistry and C hemistry - challengeOrdered By: Renard Burgos on 04-14-2022 ALP [Catalytic activity/Vol] 117 U/L 45-117 [facility] ALT [Catalytic activity/Vol] 26 U/L 16-61 [facility] Globulin (S) [Mass/Vol] 3.2 g/dL 2.2-4.2 [facility] Serum or plasma albumin gordy urement (mass/volume)Ordered By: Renard Burgos on 04-14-2022 Albumin [Mass/Vol] 3.1 g/dL 3.2-5.0 [facility] Thin prep Papanicolaou smear with manual screeningOrdered By: Renard Burgos on 04-14-2022 Thin prep Papanicolaou smear with manual screening 12 U/L 15-37 [facility] Absolute lymphocyte countOrd ered By: Renard Burgos on 04-11-2022 Lymphocytes Auto (Unsp spec) [#/Vol] 2.16 10*3/uL 0.83-4.51 [facility] Basophil percentageOrdered B y: Renard Burgos on 04-11-2022 Basophils/100 WBC (Bld) 0.4 % 0-1 [facility] Eosinophils/100 WBC (Bld) 0.4 % 0-5 [facility] Neutrophils (Bld) [#/Vol] 4.2 10*3/uL 2.0-7.7 [facility] Neutrophils/100 WBC (Bld) 61.1 % 47-70 [facility] WBC (Bld) [#/Vol] 6.9 10*3/uL 4.4-11.0 [facility] Blood erythrocytes count (nu mber/volume)Ordered By: Renard Burgos on 04-11-2022 RBC (Bld) [#/Vol] 4.58 10*6/uL 4.6-6.2 [facility] Blood hemoglobin measurement (mass/volume)Ordered By: Renard Burgos on 04-11-2022 Hemoglobin (Bld) [Mass/Vol] 13.9 g/dL 13.0-16.5 [facility] Blood lymphocytes/100 leukoc ytesOrdered By: Renard Burgos on 04-11-2022 Lymphocytes/100 WBC (Bld) 31.2 % 19-41 [facility] Blood monocytes/100 leukocyt esOrdered By: Renard Burgos on 04-11-2022 Monocytes/100 WBC (Bld) 6.5 % 0-10 [facility] Blood platelet mean volumeOr dered By: Renard Burgos on 04-11-2022 Platelet mean volume (Bld) [Entitic vol] 11.4 fL 6.2-12.0 [facility] Determination of erythrocyte mean corpuscular volume (MCV)Ordered By: Renard Burgos on 04-11-2022 MCV (RBC) [Entitic vol] 91.9 fL 80-94 [facility] Hematocrit Auto (Bld) [Volum e fraction]Ordered By: Renard Burgos on 04-11-2022 Hematocrit (Bld) [Volume fraction] 42.1 % 40-54 [facility] Laboratory - Hematology and Cell countsOrdered By: Renard Burgos on 04-11-2022 Erythrocyte distribution width (RBC) [Entitic vol] 41.5 fL 35.1-43.9 [facility] Erythrocyte distribution width (RBC) [Ratio] 12.3 % 11.6-14.6 [facility] Immature granulocytes/100 WBC (Bld) 0.400 % 0.0-0.9 [facility] Comment on above: IG% - Immature Granu locytes (promyelocytes, myelocytes and metamyelocytes) > 1% indicates that a LEFT SHIFT is Present. MCH (RBC) [Entitic mass] 30.3 pg 27.0-32.0 [facility] Nucleated RBC/100 WBC (Bld) [Ratio] 0 % 0-5 [facility] MCHC Auto (RBC) [Mass/Vol]Or dered By: Renard Burgos on 04-11-2022 MCHC (RBC) [Mass/Vol] 33.0 g/dL 32-36 [facility] Platelets bldOrdered By: Pet lizy Burgos on 04-11-2022 Platelets (Bld) [#/Vol] 191 10*3/uL 150-450 [facility] Absolute lymphocyte countOrd ered By: Renard Burgos on 04-04-2022 Lymphocytes Auto (Unsp spec) [#/Vol] 1.99 10*3/uL 0.83-4.51 [facility] Basophil percentageOrdered B y: Renard Burgos on 04-04-2022 Basophils/100 WBC (Bld) 0.4 % 0-1 [facility] Cholesterol [Mass/Vol] 158 mg/dL <[address] [facility] Comment on above: <200 mg/dL Desirable 200-240 mg/dL Borderline >240 mg/dL High Risk Eosinophils/100 WBC (Bld) 0.4 % 0-5 [facility] Neutrophils (Bld) [#/Vol] 4.9 10*3/uL 2.0-7.7 [facility] Neutrophils/100 WBC (Bld) 64.2 % 47-70 [facility] Triglyceride [Mass/Vol] 259 mg/dL <199 [facility] Comment on above: The drugs N-Acetylcy steine and Metamizole may falsely depress this assay.Serum Triglycerides Reference Interval Normal <150 mg/dL Borderline high 150 - 199 mg/dL High 200 - 499 mg/dL Very High > or = 500 mg/dL WBC (Bld) [#/Vol] 7.7 10*3/uL 4.4-11.0 [facility] Blood erythrocytes count (nu mber/volume)Ordered By: Renard Burgos on 04-04-2022 RBC (Bld) [#/Vol] 4.63 10*6/uL 4.6-6.2 [facility] Blood hemoglobin measurement (mass/volume)Ordered By: Renard Burgos on 04-04-2022 Hemoglobin (Bld) [Mass/Vol] 14.1 g/dL 13.0-16.5 [facility] Blood lymphocytes/100 leukoc ytesOrdered By: Renard Burgos on 04-04-2022 Lymphocytes/100 WBC (Bld) 25.9 % 19-41 [facility] Blood monocytes/100 leukocyt esOrdered By: Renard Burgos on 04-04-2022 Monocytes/100 WBC (Bld) 8.6 % 0-10 [facility] Blood platelet mean volumeOr dered By: Renard Burgos on 04-04-2022 Platelet mean volume (Bld) [Entitic vol] 11.3 fL 6.2-12.0 [facility] Determination of erythrocyte mean corpuscular volume (MCV)Ordered By: Renard Burgos on 04-04-2022 MCV (RBC) [Entitic vol] 90.7 fL 80-94 [facility] Hematocrit Auto (Bld) [Volum e fraction]Ordered By: Renard Burgos on 04-04-2022 Hematocrit (Bld) [Volume fraction] 42.0 % 40-54 [facility] Laboratory - Hematology and Cell countsOrdered By: Renard Burgos on 04-04-2022 Erythrocyte distribution width (RBC) [Entitic vol] 41.3 fL 35.1-43.9 [facility] Erythrocyte distribution width (RBC) [Ratio] 12.4 % 11.6-14.6 [facility] Immature granulocytes/100 WBC (Bld) 0.500 % 0.0-0.9 [facility] Comment on above: IG% - Immature Granu locytes (promyelocytes, myelocytes and metamyelocytes) > 1% indicates that a LEFT SHIFT is Present. MCH (RBC) [Entitic mass] 30.5 pg 27.0-32.0 [facility] Nucleated RBC/100 WBC (Bld) [Ratio] 0 % 0-5 [facility] MCHC Auto (RBC) [Mass/Vol]Or dered By: Renard Burgos on 04-04-2022 MCHC (RBC) [Mass/Vol] 33.6 g/dL 32-36 [facility] Platelets bldOrdered By: Pet lizy Burgos on 04-04-2022 Platelets (Bld) [#/Vol] 174 10*3/uL 150-450 [facility] Serum or plasma cholesterol in HDL measurement (mass/volume)Ordered By: Renard Burgos on 04-04-2022 Cholesterol in HDL [Mass/Vol] 26 mg/dL >40 [facility] Comment on above: The drugs N-Acetylcy steine and Metamizole may falsely depress this assay. Reference Range HDL <40 mg/dL Low HDL Cholesterol HDL >or= 60 mg/dL High HDL Cholesterol Serum or plasma cholesterol in VLDL measurement (mass/volume)Ordered By: Renard Burgos on 04-04-2022 Cholesterol in VLDL [Mass/Vol] 52 mg/dL 5-40 [facility] Serum or plasma low density lipoprotein (LDL) cholesterol measurement (mass/volume)Ordered By: Renard Burgos on 04-04-2022 Cholesterol in LDL [Mass/Vol] 80 mg/dL 0-130 [facility] Absolute lymphocyte countOrd ered By: Renard Burgos on 03-28-2022 Lymphocytes Auto (Unsp spec) [#/Vol] 2.25 10*3/uL 0.83-4.51 [facility] Basophil percentageOrdered B y: Renard Burgos on 03-28-2022 Basophils/100 WBC (Bld) 0.6 % 0-1 [facility] Eosinophils/100 WBC (Bld) 0.5 % 0-5 [facility] Neutrophils (Bld) [#/Vol] 4.8 10*3/uL 2.0-7.7 [facility] Neutrophils/100 WBC (Bld) 60.5 % 47-70 [facility] WBC (Bld) [#/Vol] 8.0 10*3/uL 4.4-11.0 [facility] Blood erythrocytes count (nu mber/volume)Ordered By: Renard Burgos on 03-28-2022 RBC (Bld) [#/Vol] 4.69 10*6/uL 4.6-6.2 [facility] Blood hemoglobin measurement (mass/volume)Ordered By: Renard Burgos on 03-28-2022 Hemoglobin (Bld) [Mass/Vol] 14.4 g/dL 13.0-16.5 [facility] Blood lymphocytes/100 leukoc ytesOrdered By: Renard Burgos on 03-28-2022 Lymphocytes/100 WBC (Bld) 28.1 % 19-41 [facility] Blood monocytes/100 leukocyt esOrdered By: Renard Burgos on 03-28-2022 Monocytes/100 WBC (Bld) 9.8 % 0-10 [facility] Blood platelet mean volumeOr dered By: Renard Burgos on 03-28-2022 Platelet mean volume (Bld) [Entitic vol] 10.8 fL 6.2-12.0 [facility] Determination of erythrocyte mean corpuscular volume (MCV)Ordered By: Renard Burgos on 03-28-2022 MCV (RBC) [Entitic vol] 92.1 fL 80-94 [facility] Hematocrit Auto (Bld) [Volum e fraction]Ordered By: Renard Burgos on 03-28-2022 Hematocrit (Bld) [Volume fraction] 43.2 % 40-54 [facility] - Hematology and Cell countsOrdered By: Renard Burgos on 03-28-2022 Erythrocyte distribution width (RBC) [Entitic vol] 42.0 fL 35.1-43.9 [facility] Erythrocyte distribution width (RBC) [Ratio] 12.5 % 11.6-14.6 [facility] Immature granulocytes/100 WBC (Bld) 0.500 % 0.0-0.9 [facility] Comment on above: IG% - Immature Granu locytes (promyelocytes, myelocytes and metamyelocytes) > 1% indicates that a LEFT SHIFT is Present. MCH (RBC) [Entitic mass] 30.7 pg 27.0-32.0 [facility] Nucleated RBC/100 WBC (Bld) [Ratio] 0 % 0-5 [facility] MCHC Auto (RBC) [Mass/Vol]Or dered By: Renard Burgos on 03-28-2022 MCHC (RBC) [Mass/Vol] 33.3 g/dL 32-36 [facility] Platelets bldOrdered By: Lyubov Burgos on 03-28-2022 Platelets (Bld) [#/Vol] 207 10*3/uL 150-450 [facility] Absolute lymphocyte countOrd ered By: Renard Burgos on 03-21-2022 Lymphocytes Auto (Unsp spec) [#/Vol] 1.98 10*3/uL 0.83-4.51 [facility] Basophil percentageOrdered B y: Renard Burgos on 03-21-2022 Basophils/100 WBC (Bld) 0.5 % 0-1 [facility] Eosinophils/100 WBC (Bld) 0.5 % 0-5 [facility] Neutrophils (Bld) [#/Vol] 4.9 10*3/uL 2.0-7.7 [facility] Neutrophils/100 WBC (Bld) 63.6 % 47-70 [facility] WBC (Bld) [#/Vol] 7.7 10*3/uL 4.4-11.0 [facility] Blood erythrocytes count (nu mber/volume)Ordered By: Renard Burgos on 03-21-2022 RBC (Bld) [#/Vol] 4.82 10*6/uL 4.6-6.2 [facility] Blood hemoglobin measurement (mass/volume)Ordered By: Renard Burgos on 03-21-2022 Hemoglobin (Bld) [Mass/Vol] 14.9 g/dL 13.0-16.5 [facility] Blood lymphocytes/100 leukoc ytesOrdered By: Renard Burgos on 03-21-2022 Lymphocytes/100 WBC (Bld) 25.7 % 19-41 [facility] Blood monocytes/100 leukocyt esOrdered By: Renard Burgos on 03-21-2022 Monocytes/100 WBC (Bld) 9.3 % 0-10 [facility] Blood platelet mean volumeOr dered By: Renard Burgos on 03-21-2022 Platelet mean volume (Bld) [Entitic vol] 10.8 fL 6.2-12.0 [facility] Determination of erythrocyte mean corpuscular volume (MCV)Ordered By: Renard Burgos on 03-21-2022 MCV (RBC) [Entitic vol] 90.7 fL 80-94 [facility] Hematocrit Auto (Bld) [Volum e fraction]Ordered By: Renard Burgos on 03-21-2022 Hematocrit (Bld) [Volume fraction] 43.7 % 40-54 [facility] - Hematology and Cell countsOrdered By: Renard Burgos on 03-21-2022 Erythrocyte distribution width (RBC) [Entitic vol] 40.8 fL 35.1-43.9 [facility] Erythrocyte distribution width (RBC) [Ratio] 12.4 % 11.6-14.6 [facility] Immature granulocytes/100 WBC (Bld) 0.400 % 0.0-0.9 [facility] Comment on above: IG% - Immature Granu locytes (promyelocytes, myelocytes and metamyelocytes) > 1% indicates that a LEFT SHIFT is Present. MCH (RBC) [Entitic mass] 30.9 pg 27.0-32.0 [facility] Nucleated RBC/100 WBC (Bld) [Ratio] 0 % 0-5 [facility] MCHC Auto (RBC) [Mass/Vol]Or dered By: Renard Burgos on 03-21-2022 MCHC (RBC) [Mass/Vol] 34.1 g/dL 32-36 [facility] Platelets bldOrdered By: Lyubov Burgos on 03-21-2022 Platelets (Bld) [#/Vol] 186 10*3/uL 150-450 [facility] Absolute lymphocyte countOrd ered By: Renard Burgos on 03-14-2022 Lymphocytes Auto (Unsp spec) [#/Vol] 2.18 10*3/uL 0.83-4.51 [facility] Basophil percentageOrdered B y: Renard Burgos on 03-14-2022 Basophils/100 WBC (Bld) 0.4 % 0-1 [facility] Eosinophils/100 WBC (Bld) 0.6 % 0-5 [facility] Neutrophils (Bld) [#/Vol] 4.3 10*3/uL 2.0-7.7 [facility] Neutrophils/100 WBC (Bld) 58.8 % 47-70 [facility] WBC (Bld) [#/Vol] 7.3 10*3/uL 4.4-11.0 [facility] Blood erythrocytes count (nu mber/volume)Ordered By: Renard Burgos on 03-14-2022 RBC (Bld) [#/Vol] 4.80 10*6/uL 4.6-6.2 [facility] Blood hemoglobin measurement (mass/volume)Ordered By: Renard Burgos on 03-14-2022 Hemoglobin (Bld) [Mass/Vol] 14.5 g/dL 13.0-16.5 [facility] Blood lymphocytes/100 leukoc ytesOrdered By: Renard Burgos on 03-14-2022 Lymphocytes/100 WBC (Bld) 30.1 % 19-41 [facility] Blood monocytes/100 leukocyt esOrdered By: Renard Burgos on 03-14-2022 Monocytes/100 WBC (Bld) 9.5 % 0-10 [facility] Blood platelet mean volumeOr dered By: Renard Burgos on 03-14-2022 Platelet mean volume (Bld) [Entitic vol] 11.0 fL 6.2-12.0 [facility] Determination of erythrocyte mean corpuscular volume (MCV)Ordered By: Renard Burgos on 03-14-2022 MCV (RBC) [Entitic vol] 91.5 fL 80-94 [facility] Hematocrit Auto (Bld) [Volum e fraction]Ordered By: Renard Burgso on 03-14-2022 Hematocrit (Bld) [Volume fraction] 43.9 % 40-54 [facility] - Hematology and Cell countsOrdered By: Renard Burgos on 03-14-2022 Erythrocyte distribution width (RBC) [Entitic vol] 41.1 fL 35.1-43.9 [facility] Erythrocyte distribution width (RBC) [Ratio] 12.4 % 11.6-14.6 [facility] Immature granulocytes/100 WBC (Bld) 0.600 % 0.0-0.9 [facility] Comment on above: IG% - Immature Granu locytes (promyelocytes, myelocytes and metamyelocytes) > 1% indicates that a LEFT SHIFT is Present. MCH (RBC) [Entitic mass] 30.2 pg 27.0-32.0 [facility] Nucleated RBC/100 WBC (Bld) [Ratio] 0 % 0-5 [facility] MCHC Auto (RBC) [Mass/Vol]Or dered By: Renard Burgos on 03-14-2022 MCHC (RBC) [Mass/Vol] 33.0 g/dL 32-36 [facility] Platelets bldOrdered By: Lyubov Burgos on 03-14-2022 Platelets (Bld) [#/Vol] 201 10*3/uL 150-450 [facility] Absolute lymphocyte countOrd ered By: Renard Burgos on 2022 Lymphocytes Auto (Unsp spec) [#/Vol] 1.97 10*3/uL 0.83-4.51 [facility] Basophil percentageOrdered B y: Renard Burgos on 2022 Basophils/100 WBC (Bld) 0.6 % 0-1 [facility] Eosinophils/100 WBC (Bld) 0.4 % 0-5 [facility] Neutrophils (Bld) [#/Vol] 4.3 10*3/uL 2.0-7.7 [facility] Neutrophils/100 WBC (Bld) 61.3 % 47-70 [facility] WBC (Bld) [#/Vol] 7.0 10*3/uL 4.4-11.0 [facility] Blood erythrocytes count (nu mber/volume)Ordered By: Renard Burgos on 2022 RBC (Bld) [#/Vol] 4.78 10*6/uL 4.6-6.2 [facility] Blood hemoglobin measurement (mass/volume)Ordered By: Renard Burgos on 2022 Hemoglobin (Bld) [Mass/Vol] 14.4 g/dL 13.0-16.5 [facility] Blood lymphocytes/100 leukoc ytesOrdered By: Renard Burgos on 2022 Lymphocytes/100 WBC (Bld) 28.3 % 19-41 [facility] Blood monocytes/100 leukocyt esOrdered By: Renard Burgos on 2022 Monocytes/100 WBC (Bld) 9.1 % 0-10 [facility] Blood platelet mean volumeOr dered By: Renard Burgos on 2022 Platelet mean volume (Bld) [Entitic vol] 11.1 fL 6.2-12.0 [facility] Determination of erythrocyte mean corpuscular volume (MCV)Ordered By: Renard Burgos on 2022 MCV (RBC) [Entitic vol] 91.2 fL 80-94 [facility] Hematocrit Auto (Bld) [Volum e fraction]Ordered By: Renard Burgos on 2022 Hematocrit (Bld) [Volume fraction] 43.6 % 40-54 [facility] - Hematology and Cell countsOrdered By: Renard Burgos on 2022 Erythrocyte distribution width (RBC) [Entitic vol] 42.0 fL 35.1-43.9 [facility] Erythrocyte distribution width (RBC) [Ratio] 12.6 % 11.6-14.6 [facility] Immature granulocytes/100 WBC (Bld) 0.300 % 0.0-0.9 [facility] Comment on above: IG% - Immature Granu locytes (promyelocytes, myelocytes and metamyelocytes) > 1% indicates that a LEFT SHIFT is Present. MCH (RBC) [Entitic mass] 30.1 pg 27.0-32.0 [facility] Nucleated RBC/100 WBC (Bld) [Ratio] 0 % 0-5 [facility] MCHC Auto (RBC) [Mass/Vol]Or dered By: Renard Burgos on 2022 MCHC (RBC) [Mass/Vol] 33.0 g/dL 32-36 [facility] Platelets bldOrdered By: Lyubov Burgos on 2022 Platelets (Bld) [#/Vol] 210 10*3/uL 150-450 [facility] Absolute lymphocyte countOrd ered By: Renard Burgos on 02-28-2022 Lymphocytes Auto (Unsp spec) [#/Vol] 1.85 10*3/uL 0.83-4.51 [facility] Basophil percentageOrdered B y: Renard Burgos on 02-28-2022 Basophils/100 WBC (Bld) 0.4 % 0-1 [facility] Eosinophils/100 WBC (Bld) 0.4 % 0-5 [facility] Neutrophils (Bld) [#/Vol] 5.3 10*3/uL 2.0-7.7 [facility] Neutrophils/100 WBC (Bld) 67.8 % 47-70 [facility] WBC (Bld) [#/Vol] 7.8 10*3/uL 4.4-11.0 [facility] Blood erythrocytes count (nu mber/volume)Ordered By: Renard Burgos on 02-28-2022 RBC (Bld) [#/Vol] 4.58 10*6/uL 4.6-6.2 [facility] Blood hemoglobin measurement (mass/volume)Ordered By: Renard Burgos on 02-28-2022 Hemoglobin (Bld) [Mass/Vol] 14.3 g/dL 13.0-16.5 [facility] Blood lymphocytes/100 leukoc ytesOrdered By: Renard Burgos on 02-28-2022 Lymphocytes/100 WBC (Bld) 23.8 % 19-41 [facility] Blood monocytes/100 leukocyt esOrdered By: Renard Burgos on 02-28-2022 Monocytes/100 WBC (Bld) 7.2 % 0-10 [facility] Blood platelet mean volumeOr dered By: Renard Burgos on 02-28-2022 Platelet mean volume (Bld) [Entitic vol] 10.8 fL 6.2-12.0 [facility] Determination of erythrocyte mean corpuscular volume (MCV)Ordered By: Renard Burgos on 02-28-2022 MCV (RBC) [Entitic vol] 91.5 fL 80-94 [facility] Hematocrit Auto (Bld) [Volum e fraction]Ordered By: Renard Burgos on 02-28-2022 Hematocrit (Bld) [Volume fraction] 41.9 % 40-54 [facility] - Hematology and Cell countsOrdered By: Renard Burgos on 02-28-2022 Erythrocyte distribution width (RBC) [Entitic vol] 42.2 fL 35.1-43.9 [facility] Erythrocyte distribution width (RBC) [Ratio] 12.7 % 11.6-14.6 [facility] Immature granulocytes/100 WBC (Bld) 0.400 % 0.0-0.9 [facility] Comment on above: IG% - Immature Granu locytes (promyelocytes, myelocytes and metamyelocytes) > 1% indicates that a LEFT SHIFT is Present. MCH (RBC) [Entitic mass] 31.2 pg 27.0-32.0 [facility] Nucleated RBC/100 WBC (Bld) [Ratio] 0 % 0-5 [facility] MCHC Auto (RBC) [Mass/Vol]Or dered By: Renard Burgos on 02-28-2022 MCHC (RBC) [Mass/Vol] 34.1 g/dL 32-36 [facility] Platelets bldOrdered By: Lyubov Burgos on 02-28-2022 Platelets (Bld) [#/Vol] 202 10*3/uL 150-450 [facility] Absolute lymphocyte countOrd ered By: Renard Burgos on 02-21-2022 Lymphocytes Auto (Unsp spec) [#/Vol] 1.93 10*3/uL 0.83-4.51 [facility] Basophil percentageOrdered B y: Renard Burgos on 02-21-2022 Basophils/100 WBC (Bld) 0.4 % 0-1 [facility] Eosinophils/100 WBC (Bld) 0.4 % 0-5 [facility] Neutrophils (Bld) [#/Vol] 4.6 10*3/uL 2.0-7.7 [facility] Neutrophils/100 WBC (Bld) 63.4 % 47-70 [facility] WBC (Bld) [#/Vol] 7.2 10*3/uL 4.4-11.0 [facility] Blood erythrocytes count (nu mber/volume)Ordered By: Renard Burgos on 02-21-2022 RBC (Bld) [#/Vol] 4.54 10*6/uL 4.6-6.2 [facility] Blood hemoglobin measurement (mass/volume)Ordered By: Renard Burgos on 02-21-2022 Hemoglobin (Bld) [Mass/Vol] 14.1 g/dL 13.0-16.5 [facility] Blood lymphocytes/100 leukoc ytesOrdered By: Renard Burgos on 02-21-2022 Lymphocytes/100 WBC (Bld) 26.7 % 19-41 [facility] Blood monocytes/100 leukocyt esOrdered By: Renard Burgos on 02-21-2022 Monocytes/100 WBC (Bld) 8.8 % 0-10 [facility] Blood platelet mean volumeOr dered By: Renard Burgos on 02-21-2022 Platelet mean volume (Bld) [Entitic vol] 11.1 fL 6.2-12.0 [facility] Determination of erythrocyte mean corpuscular volume (MCV)Ordered By: Renard Burgos on 02-21-2022 MCV (RBC) [Entitic vol] 91.4 fL 80-94 [facility] Hematocrit Auto (Bld) [Volum e fraction]Ordered By: Renard Burgos on 02-21-2022 Hematocrit (Bld) [Volume fraction] 41.5 % 40-54 [facility] Laboratory - Hematology and Cell countsOrdered By: Renard Burgos on 02-21-2022 Erythrocyte distribution width (RBC) [Entitic vol] 41.9 fL 35.1-43.9 [facility] Erythrocyte distribution width (RBC) [Ratio] 12.6 % 11.6-14.6 [facility] Immature granulocytes/100 WBC (Bld) 0.300 % 0.0-0.9 [facility] Comment on above: IG% - Immature Granu locytes (promyelocytes, myelocytes and metamyelocytes) > 1% indicates that a LEFT SHIFT is Present. MCH (RBC) [Entitic mass] 31.1 pg 27.0-32.0 [facility] Nucleated RBC/100 WBC (Bld) [Ratio] 0 % 0-5 [facility] MCHC Auto (RBC) [Mass/Vol]Or dered By: Renard Burgos on 02-21-2022 MCHC (RBC) [Mass/Vol] 34.0 g/dL 32-36 [facility] Platelets bldOrdered By: Lyubov Burgos on 02-21-2022 Platelets (Bld) [#/Vol] 189 10*3/uL 150-450 [facility] Absolute lymphocyte countOrd ered By: Renard Burgos on 02-14-2022 Lymphocytes Auto (Unsp spec) [#/Vol] 2.00 10*3/uL 0.83-4.51 [facility] Basophil percentageOrdered B y: Renard Burgos on 02-14-2022 Basophils/100 WBC (Bld) 0.6 % 0-1 [facility] Eosinophils/100 WBC (Bld) 0.3 % 0-5 [facility] Neutrophils (Bld) [#/Vol] 6.4 10*3/uL 2.0-7.7 [facility] Neutrophils/100 WBC (Bld) 69.5 % 47-70 [facility] WBC (Bld) [#/Vol] 9.3 10*3/uL 4.4-11.0 [facility] Blood erythrocytes count (nu mber/volume)Ordered By: Renard Burgos on 02-14-2022 RBC (Bld) [#/Vol] 4.65 10*6/uL 4.6-6.2 [facility] Blood hemoglobin measurement (mass/volume)Ordered By: Renard Burgos on 02-14-2022 Hemoglobin (Bld) [Mass/Vol] 14.6 g/dL 13.0-16.5 [facility] Blood lymphocytes/100 leukoc ytesOrdered By: Renard Burgos on 02-14-2022 Lymphocytes/100 WBC (Bld) 21.6 % 19-41 [facility] Blood monocytes/100 leukocyt esOrdered By: Renard Burgos on 02-14-2022 Monocytes/100 WBC (Bld) 7.6 % 0-10 [facility] Blood platelet mean volumeOr dered By: Renard Burgos on 02-14-2022 Platelet mean volume (Bld) [Entitic vol] 11.1 fL 6.2-12.0 [facility] Determination of erythrocyte mean corpuscular volume (MCV)Ordered By: Renard Burgos on 02-14-2022 MCV (RBC) [Entitic vol] 91.8 fL 80-94 [facility] Hematocrit Auto (Bld) [Volum e fraction]Ordered By: Renard Burgos on 02-14-2022 Hematocrit (Bld) [Volume fraction] 42.7 % 40-54 [facility] Laboratory - Hematology and Cell countsOrdered By: Renard Burgos on 02-14-2022 Erythrocyte distribution width (RBC) [Entitic vol] 43.7 fL 35.1-43.9 [facility] Erythrocyte distribution width (RBC) [Ratio] 13.0 % 11.6-14.6 [facility] Immature granulocytes/100 WBC (Bld) 0.400 % 0.0-0.9 [facility] Comment on above: IG% - Immature Granu locytes (promyelocytes, myelocytes and metamyelocytes) > 1% indicates that a LEFT SHIFT is Present. MCH (RBC) [Entitic mass] 31.4 pg 27.0-32.0 [facility] Nucleated RBC/100 WBC (Bld) [Ratio] 0 % 0-5 [facility] MCHC Auto (RBC) [Mass/Vol]Or dered By: Renard Burgos on 02-14-2022 MCHC (RBC) [Mass/Vol] 34.2 g/dL 32-36 [facility] Platelets bldOrdered By: Lyubov Burgos on 02-14-2022 Platelets (Bld) [#/Vol] 187 10*3/uL 150-450 [facility] Absolute lymphocyte countOrd ered By: Renard Burgos on 02-07-2022 Lymphocytes Auto (Unsp spec) [#/Vol] 1.97 10*3/uL 0.83-4.51 [facility] Basophil percentageOrdered B y: Renard Burgos on 02-07-2022 Basophils/100 WBC (Bld) 0.4 % 0-1 [facility] Eosinophils/100 WBC (Bld) 0.3 % 0-5 [facility] Neutrophils (Bld) [#/Vol] 4.2 10*3/uL 2.0-7.7 [facility] Neutrophils/100 WBC (Bld) 61.8 % 47-70 [facility] WBC (Bld) [#/Vol] 6.8 10*3/uL 4.4-11.0 [facility] Blood erythrocytes count (nu mber/volume)Ordered By: Renard Burgos on 02-07-2022 RBC (Bld) [#/Vol] 4.86 10*6/uL 4.6-6.2 [facility] Blood hemoglobin measurement (mass/volume)Ordered By: Renard Burgos on 02-07-2022 Hemoglobin (Bld) [Mass/Vol] 15.4 g/dL 13.0-16.5 [facility] Blood lymphocytes/100 leukoc ytesOrdered By: Renard Burgos on 02-07-2022 Lymphocytes/100 WBC (Bld) 29.1 % 19-41 [facility] Blood monocytes/100 leukocyt esOrdered By: Renard Burgos on 10-10-2022 Monocytes/100 WBC (Bld) 8.1 % 0-10 [facility] Blood platelet mean volumeOr dered By: Renard Burgos on 02-07-2022 Platelet mean volume (Bld) [Entitic vol] 11.0 fL 6.2-12.0 [facility] Determination of erythrocyte mean corpuscular volume (MCV)Ordered By: Renard Burgos on 02-07-2022 MCV (RBC) [Entitic vol] 92.6 fL 80-94 [facility] Hematocrit Auto (Bld) [Volum e fraction]Ordered By: Renard Burgos on 02-07-2022 Hematocrit (Bld) [Volume fraction] 45.0 % 40-54 [facility] Laboratory - Hematology and Cell countsOrdered By: Renard Burgos on 02-07-2022 Erythrocyte distribution width (RBC) [Entitic vol] 43.1 fL 35.1-43.9 [facility] Erythrocyte distribution width (RBC) [Ratio] 12.7 % 11.6-14.6 [facility] Immature granulocytes/100 WBC (Bld) 0.300 % 0.0-0.9 [facility] Comment on above: IG% - Immature Granu locytes (promyelocytes, myelocytes and metamyelocytes) > 1% indicates that a LEFT SHIFT is Present. MCH (RBC) [Entitic mass] 31.7 pg 27.0-32.0 [facility] Nucleated RBC/100 WBC (Bld) [Ratio] 0 % 0-5 [facility] MCHC Auto (RBC) [Mass/Vol]Or dered By: Renard Burgos on 02-07-2022 MCHC (RBC) [Mass/Vol] 34.2 g/dL 32-36 [facility] Platelets bldOrdered By: Lyubov Burgos on 02-07-2022 Platelets (Bld) [#/Vol] 196 10*3/uL 150-450 [facility] Absolute lymphocyte countOrd ered By: Renard Burgos on 01-31-2022 Lymphocytes Auto (Unsp spec) [#/Vol] 2.19 10*3/uL 0.83-4.51 [facility] Basophil percentageOrdered B y: Renard Burgos on 01-31-2022 Basophils/100 WBC (Bld) 0.3 % 0-1 [facility] Eosinophils/100 WBC (Bld) 0.2 % 0-5 [facility] Neutrophils (Bld) [#/Vol] 5.7 10*3/uL 2.0-7.7 [facility] Neutrophils/100 WBC (Bld) 64.9 % 47-70 [facility] WBC (Bld) [#/Vol] 8.8 10*3/uL 4.4-11.0 [facility] Blood erythrocytes count (nu mber/volume)Ordered By: Renard Burgos on 01-31-2022 RBC (Bld) [#/Vol] 4.81 10*6/uL 4.6-6.2 [facility] Blood hemoglobin measurement (mass/volume)Ordered By: Renard Burgos on 01-31-2022 Hemoglobin (Bld) [Mass/Vol] 14.9 g/dL 13.0-16.5 [facility] Blood lymphocytes/100 leukoc ytesOrdered By: Renard Burgos on 01-31-2022 Lymphocytes/100 WBC (Bld) 24.9 % 19-41 [facility] Blood monocytes/100 leukocyt esOrdered By: Renard Burgos on 01-31-2022 Monocytes/100 WBC (Bld) 9.2 % 0-10 [facility] Blood platelet mean volumeOr dered By: Renard Burgos on 01-31-2022 Platelet mean volume (Bld) [Entitic vol] 11.0 fL 6.2-12.0 [facility] Determination of erythrocyte mean corpuscular volume (MCV)Ordered By: Renard Burgos on 01-31-2022 MCV (RBC) [Entitic vol] 92.9 fL 80-94 [facility] Hematocrit Auto (Bld) [Volum e fraction]Ordered By: Renard Burgos on 01-31-2022 Hematocrit (Bld) [Volume fraction] 44.7 % 40-54 [facility] Laboratory - Hematology and Cell countsOrdered By: Renard Burgos on 01-31-2022 Erythrocyte distribution width (RBC) [Entitic vol] 42.9 fL 35.1-43.9 [facility] Erythrocyte distribution width (RBC) [Ratio] 12.6 % 11.6-14.6 [facility] Immature granulocytes/100 WBC (Bld) 0.500 % 0.0-0.9 [facility] Comment on above: IG% - Immature Granu locytes (promyelocytes, myelocytes and metamyelocytes) > 1% indicates that a LEFT SHIFT is Present. MCH (RBC) [Entitic mass] 31.0 pg 27.0-32.0 [facility] Nucleated RBC/100 WBC (Bld) [Ratio] 0 % 0-5 [facility] MCHC Auto (RBC) [Mass/Vol]Or dered By: Renard Burgos on 01-31-2022 MCHC (RBC) [Mass/Vol] 33.3 g/dL 32-36 [facility] Platelets bldOrdered By: Lyubov Burgos on 01-31-2022 Platelets (Bld) [#/Vol] 204 10*3/uL 150-450 [facility] Absolute lymphocyte countOrd ered By: Renard Burgos on 01-24-2022 Lymphocytes Auto (Unsp spec) [#/Vol] 1.82 10*3/uL 0.83-4.51 [facility] Basophil percentageOrdered B y: Renard Burgos on 01-24-2022 Basophils/100 WBC (Bld) 0.3 % 0-1 [facility] Eosinophils/100 WBC (Bld) 0.3 % 0-5 [facility] Neutrophils (Bld) [#/Vol] 6.1 10*3/uL 2.0-7.7 [facility] Neutrophils/100 WBC (Bld) 69.9 % 47-70 [facility] WBC (Bld) [#/Vol] 8.7 10*3/uL 4.4-11.0 [facility] Blood erythrocytes count (nu mber/volume)Ordered By: Renard Burgos on 01-24-2022 RBC (Bld) [#/Vol] 4.74 10*6/uL 4.6-6.2 [facility] Blood hemoglobin measurement (mass/volume)Ordered By: Renard Burgos on 01-24-2022 Hemoglobin (Bld) [Mass/Vol] 14.5 g/dL 13.0-16.5 [facility] Blood lymphocytes/100 leukoc ytesOrdered By: Renard Burgos on 01-24-2022 Lymphocytes/100 WBC (Bld) 20.9 % 19-41 [facility] Blood monocytes/100 leukocyt esOrdered By: Renard Burgos on 01-24-2022 Monocytes/100 WBC (Bld) 8.4 % 0-10 [facility] Blood platelet mean volumeOr dered By: Renard Burgos on 01-24-2022 Platelet mean volume (Bld) [Entitic vol] 10.9 fL 6.2-12.0 [facility] Determination of erythrocyte mean corpuscular volume (MCV)Ordered By: Renard Burgos on 01-24-2022 MCV (RBC) [Entitic vol] 92.0 fL 80-94 [facility] Hematocrit Auto (Bld) [Volum e fraction]Ordered By: Renard Burgos on 01-24-2022 Hematocrit (Bld) [Volume fraction] 43.6 % 40-54 [facility] Laboratory - Hematology and Cell countsOrdered By: Renard Burgos on 01-24-2022 Erythrocyte distribution width (RBC) [Entitic vol] 42.3 fL 35.1-43.9 [facility] Erythrocyte distribution width (RBC) [Ratio] 12.5 % 11.6-14.6 [facility] Immature granulocytes/100 WBC (Bld) 0.200 % 0.0-0.9 [facility] Comment on above: IG% - Immature Granu locytes (promyelocytes, myelocytes and metamyelocytes) > 1% indicates that a LEFT SHIFT is Present. MCH (RBC) [Entitic mass] 30.6 pg 27.0-32.0 [facility] Nucleated RBC/100 WBC (Bld) [Ratio] 0 % 0-5 [facility] MCHC Auto (RBC) [Mass/Vol]Or dered By: Renard Burgos on 01-24-2022 MCHC (RBC) [Mass/Vol] 33.3 g/dL 32-36 [facility] Platelets bldOrdered By: Lyubov Burgos on 01-24-2022 Platelets (Bld) [#/Vol] 192 10*3/uL 150-450 [facility] Absolute lymphocyte counton 01-17-2022 Lymphocytes Auto (Unsp spec) [#/Vol] 1.89 10*3/uL 0.83-4.51 [facility] Work Phone: Basophil percentageon 2021 Basophils/100 WBC (Bld) 0.4 % 0-1 [facility] Work Phone: Eosinophils/100 WBC (Bld) 0.3 % 0-5 [facility] Work Phone: Neutrophils (Bld) [#/Vol] 4.4 10*3/uL 2.0-7.7 [facility] Work Phone: Neutrophils/100 WBC (Bld) 62.4 % 47-70 [facility] Work Phone: WBC (Bld) [#/Vol] 7.0 10*3/uL 4.4-11.0 [facility] Work Phone: Blood erythrocytes count (nu mber/volume)on 01-17-2022 RBC (Bld) [#/Vol] 4.64 10*6/uL 4.6-6.2 [facility]: Blood hemoglobin measurement (mass/volume)on 01-17-2022 Hemoglobin (Bld) [Mass/Vol] 14.1 g/dL 13.0-16.5 [facility] Work Phone: Blood lymphocytes/100 leukoc yteson 01-17-2022 Lymphocytes/100 WBC (Bld) 27.0 % 19-41 [facility] Work Phone: Blood monocytes/100 leukocyt eson 01-17-2022 Monocytes/100 WBC (Bld) 9.3 % 0-10 [facility] Work Phone: Blood platelet mean volumeon 01-17-2022 Platelet mean volume (Bld) [Entitic vol] 11.1 fL 6.2-12.0 [facility] Work Phone: Determination of erythrocyte mean corpuscular volume (MCV)on 01-17-2022 MCV (RBC) [Entitic vol] 91.8 fL 80-94 [facility] Work Phone: Hematocrit Auto (Bld) [Volum e fraction]on 01-17-2022 Hematocrit (Bld) [Volume fraction] 42.6 % 40-54 [facility] Work Phone: Laboratory - Hematology and Cell countson 01-17-2022 Erythrocyte distribution width (RBC) [Entitic vol] 41.5 fL 35.1-43.9 [facility] Work Phone: Erythrocyte distribution width (RBC) [Ratio] 12.5 % 11.6-14.6 [facility] Work Phone: Immature granulocytes/100 WBC (Bld) 0.600 % 0.0-0.9 [facility] Work Phone: Comment on above: IG% - Immature Granu locytes (promyelocytes, myelocytes and metamyelocytes) > 1% indicates that a LEFT SHIFT is Present. MCH (RBC) [Entitic mass] 30.4 pg 27.0-32.0 [facility] Work Phone: Nucleated RBC/100 WBC (Bld) [Ratio] 0 % 0-5 [facility] Work Phone: MCHC Auto (RBC) [Mass/Vol]on 01-17-2022 MCHC (RBC) [Mass/Vol] 33.1 g/dL 32-36 [facility]: Platelets bldon 01-17-2022 Platelets (Bld) [#/Vol] 200 10*3/uL 150-450 [facility] Work Phone: Absolute lymphocyte counton 01-10-2022 Lymphocytes Auto (Unsp spec) [#/Vol] 2.07 10*3/uL 0.83-4.51 [facility] Work Phone: Basophil percentageon 2021 Basophils/100 WBC (Bld) 0.6 % 0-1 [facility] Work Phone: Eosinophils/100 WBC (Bld) 0.3 % 0-5 [facility] Work Phone: Neutrophils (Bld) [#/Vol] 4.2 10*3/uL 2.0-7.7 [facility] Work Phone: Neutrophils/100 WBC (Bld) 59.2 % 47-70 [facility] Work Phone: WBC (Bld) [#/Vol] 7.0 10*3/uL 4.4-11.0 [facility] Work Phone: Blood erythrocytes count (nu mber/volume)on 01-10-2022 RBC (Bld) [#/Vol] 4.83 10*6/uL 4.6-6.2 [facility] Work Phone: Blood hemoglobin measurement (mass/volume)on 01-10-2022 Hemoglobin (Bld) [Mass/Vol] 14.8 g/dL 13.0-16.5 [facility] Work Phone: Blood lymphocytes/100 leukoc yteson 01-10-2022 Lymphocytes/100 WBC (Bld) 29.5 % 19-41 [facility] Work Phone: Blood monocytes/100 leukocyt eson 01-10-2022 Monocytes/100 WBC (Bld) 10.1 % 0-10 [facility] Work Phone: Blood platelet mean volumeon 01-10-2022 Platelet mean volume (Bld) [Entitic vol] 10.8 fL 6.2-12.0 [facility] Work Phone: Determination of erythrocyte mean corpuscular volume (MCV)on 01-10-2022 MCV (RBC) [Entitic vol] 97.5 fL 80-94 [facility] Work Phone: Hematocrit Auto (Bld) [Volum e fraction]on 01-10-2022 Hematocrit (Bld) [Volume fraction] 47.1 % 40-54 [facility] Work Phone: Laboratory - Hematology and Cell countson 01-10-2022 Erythrocyte distribution width (RBC) [Entitic vol] 44.9 fL 35.1-43.9 [facility] Work Phone: [phone] Erythrocyte distribution width (RBC) [Ratio] 12.7 % 11.6-14.6 [facility] Work Phone: [phone] Immature granulocytes/100 WBC (Bld) 0.300 % 0.0-0.9 [facility] Work Phone: Comment on above: IG% - Immature Granu locytes (promyelocytes, myelocytes and metamyelocytes) > 1% indicates that a LEFT SHIFT is Present. MCH (RBC) [Entitic mass] 30.6 pg 27.0-32.0 [facility] Work Phone: [phone] Nucleated RBC/100 WBC (Bld) [Ratio] 0 % 0-5 [facility] Work Phone: [phone] MCHC Auto (RBC) [Mass/Vol]on 01-10-2022 MCHC (RBC) [Mass/Vol] 31.4 g/dL 32-36 [facility] Work Phone: Platelets bldon 01-10-2022 Platelets (Bld) [#/Vol] 169 10*3/uL 150-450 [facility] Work Phone: [phone] Absolute lymphocyte counton 01-04-2022 Lymphocytes Auto (Unsp spec) [#/Vol] 1.84 10*3/uL 0.83-4.51 [facility] Work Phone: Basophil percentageon 2021 Basophils/100 WBC (Bld) 0.3 % 0-1 [facility] Work Phone: Eosinophils/100 WBC (Bld) 0.3 % 0-5 [facility] Work Phone: Neutrophils (Bld) [#/Vol] 4.8 10*3/uL 2.0-7.7 [facility] Work Phone: Neutrophils/100 WBC (Bld) 64.8 % 47-70 [facility] Work Phone: WBC (Bld) [#/Vol] 7.4 10*3/uL 4.4-11.0 [facility] Work Phone: Blood erythrocytes count (nu mber/volume)on 01-04-2022 RBC (Bld) [#/Vol] 4.67 10*6/uL 4.6-6.2 [facility]: Blood hemoglobin measurement (mass/volume)on 01-04-2022 Hemoglobin (Bld) [Mass/Vol] 14.2 g/dL 13.0-16.5 [facility] Work Phone: Blood lymphocytes/100 leukoc yteson 01-04-2022 Lymphocytes/100 WBC (Bld) 25.0 % 19-41 [facility] Work Phone: Blood monocytes/100 leukocyt eson 01-04-2022 Monocytes/100 WBC (Bld) 9.1 % 0-10 [facility] Work Phone: Blood platelet mean volumeon 01-04-2022 Platelet mean volume (Bld) [Entitic vol] 11.0 fL 6.2-12.0 [facility] Work Phone: Determination of erythrocyte mean corpuscular volume (MCV)on 01-04-2022 MCV (RBC) [Entitic vol] 91.0 fL 80-94 [facility] Work Phone: Hematocrit Auto (Bld) [Volum e fraction]on 01-04-2022 Hematocrit (Bld) [Volume fraction] 42.5 % 40-54 [facility] Work Phone: Laboratory - Hematology and Cell countson 01-04-2022 Erythrocyte distribution width (RBC) [Entitic vol] 41.4 fL 35.1-43.9 [facility] Work Phone: Erythrocyte distribution width (RBC) [Ratio] 12.7 % 11.6-14.6 [facility] Work Phone: Immature granulocytes/100 WBC (Bld) 0.500 % 0.0-0.9 [facility] Work Phone: Comment on above: IG% - Immature Granu locytes (promyelocytes, myelocytes and metamyelocytes) > 1% indicates that a LEFT SHIFT is Present. MCH (RBC) [Entitic mass] 30.4 pg 27.0-32.0 [facility] Work Phone: Nucleated RBC/100 WBC (Bld) [Ratio] 0 % 0-5 [facility] Work Phone: [phone] MCHC Auto (RBC) [Mass/Vol]on 01-04-2022 MCHC (RBC) [Mass/Vol] 33.4 g/dL 32-36 [facility] Work Phone: [phone] Platelets bldon 01-04-2022 Platelets (Bld) [#/Vol] 184 10*3/uL 150-450 [facility] Work Phone: [phone] Absolute lymphocyte counton 12-27-2021 Lymphocytes Auto (Unsp spec) [#/Vol] 1.79 10*3/uL 0.83-4.51 [facility] Work Phone: Basophil percentageon 2021 Basophils/100 WBC (Bld) 0.4 % 0-1 [facility] Work Phone: [phone] Eosinophils/100 WBC (Bld) 0.4 % 0-5 [facility] Work Phone: [phone] Neutrophils (Bld) [#/Vol] 4.9 10*3/uL 2.0-7.7 [facility] Work Phone: [phone] Neutrophils/100 WBC (Bld) 65.2 % 47-70 [facility] Work Phone: WBC (Bld) [#/Vol] 7.6 10*3/uL 4.4-11.0 [facility] Work Phone: [phone] Blood erythrocytes count (nu mber/volume)on 12-27-2021 RBC (Bld) [#/Vol] 4.66 10*6/uL 4.6-6.2 [facility] Work [facility]: Blood hemoglobin measurement (mass/volume)on 12-27-2021 Hemoglobin (Bld) [Mass/Vol] 14.5 g/dL 13.0-16.5 [facility] Work Phone: Blood lymphocytes/100 leukoc yteson 12-27-2021 Lymphocytes/100 WBC (Bld) 23.6 % 19-41 [facility] Work Phone: Blood monocytes/100 leukocyt eson 12-27-2021 Monocytes/100 WBC (Bld) 10.0 % 0-10 [facility] Work Phone: Blood platelet mean volumeon 12-27-2021 Platelet mean volume (Bld) [Entitic vol] 10.9 fL 6.2-12.0 [facility] Work Phone: Determination of erythrocyte mean corpuscular volume (MCV)on 12-27-2021 MCV (RBC) [Entitic vol] 91.0 fL 80-94 [facility] Work Phone: Hematocrit Auto (Bld) [Volum e fraction]on 12-27-2021 Hematocrit (Bld) [Volume fraction] 42.4 % 40-54 [facility] Work Phone: Laboratory - Hematology and Cell countson 12-27-2021 Erythrocyte distribution width (RBC) [Entitic vol] 41.2 fL 35.1-43.9 [facility] Work Phone: Erythrocyte distribution width (RBC) [Ratio] 12.6 % 11.6-14.6 [facility] Work Phone: Immature granulocytes/100 WBC (Bld) 0.400 % 0.0-0.9 [facility] Work Phone: Comment on above: IG% - Immature Granu locytes (promyelocytes, myelocytes and metamyelocytes) > 1% indicates that a LEFT SHIFT is Present. MCH (RBC) [Entitic mass] 31.1 pg 27.0-32.0 [facility] Work Phone: Nucleated RBC/100 WBC (Bld) [Ratio] 0 % 0-5 [facility] Work Phone: MCHC Auto (RBC) [Mass/Vol]on 12-27-2021 MCHC (RBC) [Mass/Vol] 34.2 g/dL 32-36 [facility] Work Phone: Platelets bldon 12-27-2021 Platelets (Bld) [#/Vol] 185 10*3/uL 150-450 [facility] Work Phone: Absolute lymphocyte counton 12-20-2021 Lymphocytes Auto (Unsp spec) [#/Vol] 2.02 10*3/uL 0.83-4.51 [facility] Work Phone: Basophil percentageon 2021 Basophils/100 WBC (Bld) 0.2 % 0-1 [facility] Work Phone: Eosinophils/100 WBC (Bld) 0.3 % 0-5 [facility] Work Phone: Neutrophils (Bld) [#/Vol] 3.6 10*3/uL 2.0-7.7 [facility] Work Phone: Neutrophils/100 WBC (Bld) 57.8 % 47-70 [facility] Work Phone: WBC (Bld) [#/Vol] 6.1 10*3/uL 4.4-11.0 [facility] Work Phone: Blood erythrocytes count (nu mber/volume)on 12-20-2021 RBC (Bld) [#/Vol] 4.81 10*6/uL 4.6-6.2 [facility] Work Phone: Blood hemoglobin measurement (mass/volume)on 12-20-2021 Hemoglobin (Bld) [Mass/Vol] 14.8 g/dL 13.0-16.5 [facility] Work Phone: Blood lymphocytes/100 leukoc yteson 12-20-2021 Lymphocytes/100 WBC (Bld) 32.9 % 19-41 [facility] Work Phone: Blood monocytes/100 leukocyt eson 12-20-2021 Monocytes/100 WBC (Bld) 8.3 % 0-10 [facility] Work Phone: Blood platelet adequacy dete ction by light microscopyon 12-20-2021 Platelets LM Ql (Bld) [facility]: Blood platelet mean volumeon 12-20-2021 Platelet mean volume (Bld) [Entitic vol] 11.1 fL 6.2-12.0 [facility] Work Phone: Determination of erythrocyte mean corpuscular volume (MCV)on 12-20-2021 MCV (RBC) [Entitic vol] 93.1 fL 80-94 [facility] Work Phone: Hematocrit Auto (Bld) [Volum e fraction]on 12-20-2021 Hematocrit (Bld) [Volume fraction] 44.8 % 40-54 [facility] Work Phone: Laboratory - Hematology and Cell countson 12-20-2021 Erythrocyte distribution width (RBC) [Entitic vol] 42.4 fL 35.1-43.9 [facility] Work Phone: Erythrocyte distribution width (RBC) [Ratio] 12.4 % 11.6-14.6 [facility] Work Phone: Immature granulocytes/100 WBC (Bld) 0.500 % 0.0-0.9 [facility] Work Phone: Comment on above: IG% - Immature Granu locytes (promyelocytes, myelocytes and metamyelocytes) > 1% indicates that a LEFT SHIFT is Present. MCH (RBC) [Entitic mass] 30.8 pg 27.0-32.0 [facility] Work Phone: Nucleated RBC/100 WBC (Bld) [Ratio] 0 % 0-5 [facility] Work Phone: MCHC Auto (RBC) [Mass/Vol]on 12-20-2021 MCHC (RBC) [Mass/Vol] 33.0 g/dL 32-36 [facility] Work Phone: Platelets bldon 12-20-2021 Platelets (Bld) [#/Vol] See comment 150-450 [facility] Work Phone: Comment on [...] Auto (Unsp spec) [#/Vol] 1.88 10*3/uL 0.83-4.51 [facility] Work Phone: Basophil percentageon 2021 Basophils/100 WBC (Bld) 0.6 % 0-1 [facility] Work Phone: Eosinophils/100 WBC (Bld) 0.3 % 0-5 [facility] Work Phone: Neutrophils (Bld) [#/Vol] 4.5 10*3/uL 2.0-7.7 [facility] Work Phone: Neutrophils/100 WBC (Bld) 63.6 % 47-70 [facility] Work Phone: WBC (Bld) [#/Vol] 7.1 10*3/uL 4.4-11.0 [facility] Work Phone: Blood erythrocytes count (nu mber/volume)on 12-13-2021 RBC (Bld) [#/Vol] 4.70 10*6/uL 4.6-6.2 [facility] Work Phone: Blood hemoglobin measurement (mass/volume)on 12-13-2021 Hemoglobin (Bld) [Mass/Vol] 14.4 g/dL 13.0-16.5 [facility] Work Phone: Blood lymphocytes/100 leukoc yteson 12-13-2021 Lymphocytes/100 WBC (Bld) 26.7 % 19-41 [facility] Work Phone: Blood monocytes/100 leukocyt eson 12-13-2021 Monocytes/100 WBC (Bld) 8.5 % 0-10 [facility] Work Phone: Blood platelet mean volumeon 12-13-2021 Platelet mean volume (Bld) [Entitic vol] 10.9 fL 6.2-12.0 [facility] Work Phone: Determination of erythrocyte mean corpuscular volume (MCV)on 12-13-2021 MCV (RBC) [Entitic vol] 90.9 fL 80-94 [facility] Work Phone: Hematocrit Auto (Bld) [Volum e fraction]on 12-13-2021 Hematocrit (Bld) [Volume fraction] 42.7 % 40-54 [facility] Work Phone: Laboratory - Hematology and Cell countson 12-13-2021 Erythrocyte distribution width (RBC) [Entitic vol] 42.1 fL 35.1-43.9 [facility] Work Phone: Erythrocyte distribution width (RBC) [Ratio] 12.6 % 11.6-14.6 [facility] Work Phone: Immature granulocytes/100 WBC (Bld) 0.300 % 0.0-0.9 [facility] Work Phone: Comment on above: IG% - Immature Granu locytes (promyelocytes, myelocytes and metamyelocytes) > 1% indicates that a LEFT SHIFT is Present. MCH (RBC) [Entitic mass] 30.6 pg 27.0-32.0 [facility] Work Phone: Nucleated RBC/100 WBC (Bld) [Ratio] 0 % 0-5 [facility] Work Phone: MCHC Auto (RBC) [Mass/Vol]on 12-13-2021 MCHC (RBC) [Mass/Vol] 33.7 g/dL 32-36 [facility] Work Phone: [phone] Platelets bldon 12-13-2021 Platelets (Bld) [#/Vol] 194 10*3/uL 150-450 [facility] Work Phone: [phone] Absolute lymphocyte counton 12-06-2021 Lymphocytes Auto (Unsp spec) [#/Vol] 1.91 10*3/uL 0.83-4.51 [facility] Work Phone: [phone] Basophil percentageon 2021 Basophils/100 WBC (Bld) 0.4 % 0-1 [facility] Work Phone: [phone] Eosinophils/100 WBC (Bld) 0.3 % 0-5 [facility] Work Phone: [phone] Neutrophils (Bld) [#/Vol] 4.4 10*3/uL 2.0-7.7 [facility] Work Phone: [phone] Neutrophils/100 WBC (Bld) 62.2 % 47-70 [facility] Work Phone: [phone] WBC (Bld) [#/Vol] 7.0 10*3/uL 4.4-11.0 [facility] Work Phone: Blood erythrocytes count (nu mber/volume)on 12-06-2021 RBC (Bld) [#/Vol] 4.58 10*6/uL 4.6-6.2 [facility]: [phone] Blood hemoglobin measurement (mass/volume)on 12-06-2021 Hemoglobin (Bld) [Mass/Vol] 13.8 g/dL 13.0-16.5 [facility] Work Phone: [phone] Blood lymphocytes/100 leukoc yteson 12-06-2021 Lymphocytes/100 WBC (Bld) 27.2 % 19-41 [facility] Work Phone: Blood monocytes/100 leukocyt eson 12-06-2021 Monocytes/100 WBC (Bld) 9.6 % 0-10 [facility] Work Phone: Blood platelet mean volumeon 12-06-2021 Platelet mean volume (Bld) [Entitic vol] 11.1 fL 6.2-12.0 [facility] Work Phone: Determination of erythrocyte mean corpuscular volume (MCV)on 12-06-2021 MCV (RBC) [Entitic vol] 92.1 fL 80-94 [facility] Work Phone: Hematocrit Auto (Bld) [Volum e fraction]on 12-06-2021 Hematocrit (Bld) [Volume fraction] 42.2 % 40-54 [facility] Work Phone: Laboratory - Hematology and Cell countson 12-06-2021 Erythrocyte distribution width (RBC) [Entitic vol] 42.1 fL 35.1-43.9 [facility] Work Phone: Erythrocyte distribution width (RBC) [Ratio] 12.6 % 11.6-14.6 [facility] Work Phone: Immature granulocytes/100 WBC (Bld) 0.300 % 0.0-0.9 [facility] Work Phone: Comment on above: IG% - Immature Granu locytes (promyelocytes, myelocytes and metamyelocytes) > 1% indicates that a LEFT SHIFT is Present. MCH (RBC) [Entitic mass] 30.1 pg 27.0-32.0 [facility] Work Phone: Nucleated RBC/100 WBC (Bld) [Ratio] 0 % 0-5 [facility] Work Phone: MCHC Auto (RBC) [Mass/Vol]on 12-06-2021 MCHC (RBC) [Mass/Vol] 32.7 g/dL 32-36 [facility] Work [facility]: Platelets bldon 12-06-2021 Platelets (Bld) [#/Vol] 180 10*3/uL 150-450 [facility] Work Phone: [phone] Absolute lymphocyte counton 11-29-2021 Lymphocytes Auto (Unsp spec) [#/Vol] 2.00 10*3/uL 0.83-4.51 [facility] Work Phone: [phone] Basophil percentageon 2021 Basophils/100 WBC (Bld) 0.4 % 0-1 [facility] Work Phone: Eosinophils/100 WBC (Bld) 0.3 % 0-5 [facility] Work Phone: [phone] Neutrophils (Bld) [#/Vol] 4.4 10*3/uL 2.0-7.7 [facility] Work Phone: [phone] Neutrophils/100 WBC (Bld) 62.8 % 47-70 [facility] Work Phone: [phone] WBC (Bld) [#/Vol] 7.0 10*3/uL 4.4-11.0 [facility] Work [facility]: Blood erythrocytes count (nu mber/volume)on 11-29-2021 RBC (Bld) [#/Vol] 4.72 10*6/uL 4.6-6.2 [facility] Work [facility]: Blood hemoglobin measurement (mass/volume)on 11-29-2021 Hemoglobin (Bld) [Mass/Vol] 14.6 g/dL 13.0-16.5 [facility] Work Phone: [phone] Blood lymphocytes/100 leukoc yteson 11-29-2021 Lymphocytes/100 WBC (Bld) 28.6 % 19-41 [facility] Work Phone: [phone] Blood monocytes/100 leukocyt eson 11-29-2021 Monocytes/100 WBC (Bld) 7.6 % 0-10 [facility] Work Phone: Blood platelet mean volumeon 11-29-2021 Platelet mean volume (Bld) [Entitic vol] 11.1 fL 6.2-12.0 [facility] Work Phone: Determination of erythrocyte mean corpuscular volume (MCV)on 11-29-2021 MCV (RBC) [Entitic vol] 91.9 fL 80-94 [facility] Work Phone: Hematocrit Auto (Bld) [Volum e fraction]on 11-29-2021 Hematocrit (Bld) [Volume fraction] 43.4 % 40-54 [facility] Work Phone: Laboratory - Hematology and Cell countson 11-29-2021 Erythrocyte distribution width (RBC) [Entitic vol] 41.8 fL 35.1-43.9 [facility] Work Phone: Erythrocyte distribution width (RBC) [Ratio] 12.4 % 11.6-14.6 [facility] Work Phone: Immature granulocytes/100 WBC (Bld) 0.300 % 0.0-0.9 [facility] Work Phone: Comment on above: IG% - Immature Granu locytes (promyelocytes, myelocytes and metamyelocytes) > 1% indicates that a LEFT SHIFT is Present. MCH (RBC) [Entitic mass] 30.9 pg 27.0-32.0 [facility] Work Phone: Nucleated RBC/100 WBC (Bld) [Ratio] 0 % 0-5 [facility] Work Phone: MCHC Auto (RBC) [Mass/Vol]on 11-29-2021 MCHC (RBC) [Mass/Vol] 33.6 g/dL 32-36 [facility] Work Phone: Platelets bldon 11-29-2021 Platelets (Bld) [#/Vol] 205 10*3/uL 150-450 [facility] Work Phone: Absolute lymphocyte counton 11-22-2021 Lymphocytes Auto (Unsp spec) [#/Vol] 2.25 10*3/uL 0.83-4.51 [facility] Work Phone: Basophil percentageon 2021 Basophils/100 WBC (Bld) 0.4 % 0-1 [facility] Work Phone: Eosinophils/100 WBC (Bld) 0.4 % 0-5 [facility] Work Phone: Neutrophils (Bld) [#/Vol] 5.1 10*3/uL 2.0-7.7 [facility] Work Phone: Neutrophils/100 WBC (Bld) 61.7 % 47-70 [facility] Work Phone: WBC (Bld) [#/Vol] 8.3 10*3/uL 4.4-11.0 [facility] Work Phone: Blood erythrocytes count (nu mber/volume)on 11-22-2021 RBC (Bld) [#/Vol] 4.47 10*6/uL 4.6-6.2 [facility] Work [facility]: Blood hemoglobin measurement (mass/volume)on 11-22-2021 Hemoglobin (Bld) [Mass/Vol] 13.5 g/dL 13.0-16.5 [facility] Work Phone: Blood lymphocytes/100 leukoc yteson 11-22-2021 Lymphocytes/100 WBC (Bld) 27.2 % 19-41 [facility] Work Phone: Blood monocytes/100 leukocyt eson 11-22-2021 Monocytes/100 WBC (Bld) 9.9 % 0-10 [facility] Work Phone: Blood platelet mean volumeon 11-22-2021 Platelet mean volume (Bld) [Entitic vol] 11.1 fL 6.2-12.0 [facility] Work Phone: Determination of erythrocyte mean corpuscular volume (MCV)on 11-22-2021 MCV (RBC) [Entitic vol] 92.2 fL 80-94 [facility] Work Phone: Hematocrit Auto (Bld) [Volum e fraction]on 11-22-2021 Hematocrit (Bld) [Volume fraction] 41.2 % 40-54 [facility] Work Phone: Laboratory - Hematology and Cell countson 11-22-2021 Erythrocyte distribution width (RBC) [Entitic vol] 42.3 fL 35.1-43.9 [facility] Work Phone: Erythrocyte distribution width (RBC) [Ratio] 12.6 % 11.6-14.6 [facility] Work Phone: Immature granulocytes/100 WBC (Bld) 0.400 % 0.0-0.9 [facility] Work Phone: Comment on above: IG% - Immature Granu locytes (promyelocytes, myelocytes and metamyelocytes) > 1% indicates that a LEFT SHIFT is Present. MCH (RBC) [Entitic mass] 30.2 pg 27.0-32.0 [facility] Work Phone: Nucleated RBC/100 WBC (Bld) [Ratio] 0 % 0-5 [facility] Work Phone: MCHC Auto (RBC) [Mass/Vol]on 11-22-2021 MCHC (RBC) [Mass/Vol] 32.8 g/dL 32-36 [facility] Work Phone: [phone] Platelets bldon 11-22-2021 Platelets (Bld) [#/Vol] 190 10*3/uL 150-450 [facility] Work Phone: Absolute lymphocyte counton 11-15-2021 Lymphocytes Auto (Unsp spec) [#/Vol] 2.09 10*3/uL 0.83-4.51 [facility] Work Phone: Basophil percentageon 2021 Basophils/100 WBC (Bld) 0.6 % 0-1 [facility] Work Phone: [phone] Eosinophils/100 WBC (Bld) 0.4 % 0-5 [facility] Work Phone: Neutrophils (Bld) [#/Vol] 4.2 10*3/uL 2.0-7.7 [facility] Work Phone: Neutrophils/100 WBC (Bld) 59.1 % 47-70 [facility] Work Phone: WBC (Bld) [#/Vol] 7.1 10*3/uL 4.4-11.0 [facility] Work Phone: Blood erythrocytes count (nu mber/volume)on 11-15-2021 RBC (Bld) [#/Vol] 4.72 10*6/uL 4.6-6.2 [facility] Work [facility]: Blood hemoglobin measurement (mass/volume)on 11-15-2021 Hemoglobin (Bld) [Mass/Vol] 14.6 g/dL 13.0-16.5 [facility] Work Phone: Blood lymphocytes/100 leukoc yteson 11-15-2021 Lymphocytes/100 WBC (Bld) 29.4 % 19-41 [facility] Work Phone: Blood monocytes/100 leukocyt eson 11-15-2021 Monocytes/100 WBC (Bld) 10.1 % 0-10 [facility] Work Phone: Blood platelet mean volumeon 11-15-2021 Platelet mean volume (Bld) [Entitic vol] 10.7 fL 6.2-12.0 [facility] Work Phone: Determination of erythrocyte mean corpuscular volume (MCV)on 11-15-2021 MCV (RBC) [Entitic vol] 91.9 fL 80-94 [facility] Work Phone: Hematocrit Auto (Bld) [Volum e fraction]on 11-15-2021 Hematocrit (Bld) [Volume fraction] 43.4 % 40-54 [facility] Work Phone: Laboratory - Hematology and Cell countson 11-15-2021 Erythrocyte distribution width (RBC) [Entitic vol] 41.9 fL 35.1-43.9 [facility] Work Phone: Erythrocyte distribution width (RBC) [Ratio] 12.4 % 11.6-14.6 [facility] Work Phone: Immature granulocytes/100 WBC (Bld) 0.400 % 0.0-0.9 [facility] Work Phone: Comment on above: IG% - Immature Granu locytes (promyelocytes, myelocytes and metamyelocytes) > 1% indicates that a LEFT SHIFT is Present. MCH (RBC) [Entitic mass] 30.9 pg 27.0-32.0 [facility] Work Phone: Nucleated RBC/100 WBC (Bld) [Ratio] 0 % 0-5 [facility] Work Phone: MCHC Auto (RBC) [Mass/Vol]on 11-15-2021 MCHC (RBC) [Mass/Vol] 33.6 g/dL 32-36 [facility] Work [facility]: Platelets bldon 11-15-2021 Platelets (Bld) [#/Vol] 191 10*3/uL 150-450 [facility] Work Phone: Absolute lymphocyte counton 11-08-2021 Lymphocytes Auto (Unsp spec) [#/Vol] 1.97 10*3/uL 0.83-4.51 [facility] Work Phone: Basophil percentageon 2021 Basophils/100 WBC (Bld) 0.3 % 0-1 [facility] Work Phone: Eosinophils/100 WBC (Bld) 0.3 % 0-5 [facility] Work Phone: Neutrophils (Bld) [#/Vol] 5.1 10*3/uL 2.0-7.7 [facility] Work Phone: Neutrophils/100 WBC (Bld) 64.6 % 47-70 [facility] Work Phone: WBC (Bld) [#/Vol] 7.8 10*3/uL 4.4-11.0 [facility] Work Phone: Blood erythrocytes count (nu mber/volume)on 11-08-2021 RBC (Bld) [#/Vol] 4.53 10*6/uL 4.6-6.2 [facility] Work Phone: Blood hemoglobin measurement (mass/volume)on 11-08-2021 Hemoglobin (Bld) [Mass/Vol] 14.2 g/dL 13.0-16.5 [facility] Work Phone: Blood lymphocytes/100 leukoc yteson 11-08-2021 Lymphocytes/100 WBC (Bld) 25.2 % 19-41 [facility] Work Phone: Blood monocytes/100 leukocyt eson 11-08-2021 Monocytes/100 WBC (Bld) 9.3 % 0-10 [facility] Work Phone: Blood platelet mean volumeon 11-08-2021 Platelet mean volume (Bld) [Entitic vol] 10.9 fL 6.2-12.0 [facility] Work Phone: Determination of erythrocyte mean corpuscular volume (MCV)on 11-08-2021 MCV (RBC) [Entitic vol] 92.7 fL 80-94 [facility] Work Phone: Hematocrit Auto (Bld) [Volum e fraction]on 11-08-2021 Hematocrit (Bld) [Volume fraction] 42.0 % 40-54 [facility] Work Phone: Laboratory - Hematology and Cell countson 11-08-2021 Erythrocyte distribution width (RBC) [Entitic vol] 42.3 fL 35.1-43.9 [facility] Work Phone: Erythrocyte distribution width (RBC) [Ratio] 12.5 % 11.6-14.6 [facility] Work Phone: Immature granulocytes/100 WBC (Bld) 0.300 % 0.0-0.9 [facility] Work Phone: Comment on above: IG% - Immature Granu locytes (promyelocytes, myelocytes and metamyelocytes) > 1% indicates that a LEFT SHIFT is Present. MCH (RBC) [Entitic mass] 31.3 pg 27.0-32.0 [facility] Work Phone: Nucleated RBC/100 WBC (Bld) [Ratio] 0 % 0-5 [facility] Work Phone: MCHC Auto (RBC) [Mass/Vol]on 11-08-2021 MCHC (RBC) [Mass/Vol] 33.8 g/dL 32-36 [facility] Work Phone: Platelets bldon 11-08-2021 Platelets (Bld) [#/Vol] 207 10*3/uL 150-450 [facility] Work Phone: [phone] Absolute lymphocyte counton 10-25-2021 Lymphocytes Auto (Unsp spec) [#/Vol] 2.05 10*3/uL 0.83-4.51 [facility] Work Phone: Basophil percentageon 2021 Basophils/100 WBC (Bld) 0.4 % 0-1 [facility] Work Phone: Eosinophils/100 WBC (Bld) 0.3 % 0-5 [facility] Work Phone: Neutrophils (Bld) [#/Vol] 4.2 10*3/uL 2.0-7.7 [facility] Work Phone: Neutrophils/100 WBC (Bld) 61.3 % 47-70 [facility] Work Phone: WBC (Bld) [#/Vol] 6.8 10*3/uL 4.4-11.0 [facility] Work Phone: Blood erythrocytes count (nu mber/volume)on 10-25-2021 RBC (Bld) [#/Vol] 4.56 10*6/uL 4.6-6.2 [facility] Work [facility]: Blood hemoglobin measurement (mass/volume)on 10-25-2021 Hemoglobin (Bld) [Mass/Vol] 13.9 g/dL 13.0-16.5 [facility] Work Phone: Blood lymphocytes/100 leukoc yteson 10-25-2021 Lymphocytes/100 WBC (Bld) 30.1 % 19-41 [facility] Work Phone: Blood monocytes/100 leukocyt eson 10-25-2021 Monocytes/100 WBC (Bld) 7.3 % 0-10 [facility] Work Phone: Blood platelet mean volumeon 10-25-2021 Platelet mean volume (Bld) [Entitic vol] 10.6 fL 6.2-12.0 [facility] Work Phone: Determination of erythrocyte mean corpuscular volume (MCV)on 10-25-2021 MCV (RBC) [Entitic vol] 91.0 fL 80-94 [facility] Work Phone: Hematocrit Auto (Bld) [Volum e fraction]on 10-25-2021 Hematocrit (Bld) [Volume fraction] 41.5 % 40-54 [facility] Work Phone: Laboratory - Hematology and Cell countson 10-25-2021 Erythrocyte distribution width (RBC) [Entitic vol] 41.7 fL 35.1-43.9 [facility] Work Phone: Erythrocyte distribution width (RBC) [Ratio] 12.6 % 11.6-14.6 [facility] Work Phone: Immature granulocytes/100 WBC (Bld) 0.600 % 0.0-0.9 [facility] Work Phone: Comment on above: IG% - Immature Granu locytes (promyelocytes, myelocytes and metamyelocytes) > 1% indicates that a LEFT SHIFT is Present. MCH (RBC) [Entitic mass] 30.5 pg 27.0-32.0 [facility] Work Phone: Nucleated RBC/100 WBC (Bld) [Ratio] 0 % 0-5 [facility] Work Phone: MCHC Auto (RBC) [Mass/Vol]on 10-25-2021 MCHC (RBC) [Mass/Vol] 33.5 g/dL 32-36 [facility] Work Phone: Platelets bldon 10-25-2021 Platelets (Bld) [#/Vol] 191 10*3/uL 150-450 [facility] Work Phone: Absolute lymphocyte counton 10-18-2021 Lymphocytes Auto (Unsp spec) [#/Vol] 1.66 10*3/uL 0.83-4.51 [facility] Work Phone: Basophil percentageon 2021 Basophils/100 WBC (Bld) 0.5 % 0-1 [facility] Work Phone: Eosinophils/100 WBC (Bld) 0.2 % 0-5 [facility] Work Phone: [phone] Neutrophils (Bld) [#/Vol] 4.3 10*3/uL 2.0-7.7 [facility] Work Phone: Neutrophils/100 WBC (Bld) 65.0 % 47-70 [facility] Work Phone: WBC (Bld) [#/Vol] 6.6 10*3/uL 4.4-11.0 [facility] Work Phone: [phone] Blood erythrocytes count (nu mber/volume)on 10-18-2021 RBC (Bld) [#/Vol] 4.57 10*6/uL 4.6-6.2 [facility] Work [facility]: Blood hemoglobin measurement (mass/volume)on 10-18-2021 Hemoglobin (Bld) [Mass/Vol] 14.1 g/dL 13.0-16.5 [facility] Work Phone: Blood lymphocytes/100 leukoc yteson 10-18-2021 Lymphocytes/100 WBC (Bld) 25.2 % 19-41 [facility] Work Phone: Blood monocytes/100 leukocyt eson 10-18-2021 Monocytes/100 WBC (Bld) 8.8 % 0-10 [facility] Work Phone: Blood platelet mean volumeon 10-18-2021 Platelet mean volume (Bld) [Entitic vol] 10.6 fL 6.2-12.0 [facility] Work Phone: Determination of erythrocyte mean corpuscular volume (MCV)on 10-18-2021 MCV (RBC) [Entitic vol] 91.7 fL 80-94 [facility] Work Phone: Hematocrit Auto (Bld) [Volum e fraction]on 10-18-2021 Hematocrit (Bld) [Volume fraction] 41.9 % 40-54 [facility] Work Phone: Laboratory - Hematology and Cell countson 10-18-2021 Erythrocyte distribution width (RBC) [Entitic vol] 41.6 fL 35.1-43.9 [facility] Work Phone: Erythrocyte distribution width (RBC) [Ratio] 12.5 % 11.6-14.6 [facility] Work Phone: Immature granulocytes/100 WBC (Bld) 0.300 % 0.0-0.9 [facility] Work Phone: Comment on above: IG% - Immature Granu locytes (promyelocytes, myelocytes and metamyelocytes) > 1% indicates that a LEFT SHIFT is Present. MCH (RBC) [Entitic mass] 30.9 pg 27.0-32.0 [facility] Work Phone: Nucleated RBC/100 WBC (Bld) [Ratio] 0 % 0-5 [facility] Work Phone: MCHC Auto (RBC) [Mass/Vol]on 10-18-2021 MCHC (RBC) [Mass/Vol] 33.7 g/dL 32-36 [facility] Work Phone: Platelets bldon 10-18-2021 Platelets (Bld) [#/Vol] 185 10*3/uL 150-450 [facility] Work Phone: Absolute lymphocyte counton 10-11-2021 Lymphocytes Auto (Unsp spec) [#/Vol] 1.66 10*3/uL 0.83-4.51 [facility] Work Phone: Basophil percentageon 2021 Basophils/100 WBC (Bld) 0.5 % 0-1 [facility] Work Phone: [phone] Eosinophils/100 WBC (Bld) 0.1 % 0-5 [facility] Work Phone: [phone] Neutrophils (Bld) [#/Vol] 5.9 10*3/uL 2.0-7.7 [facility] Work Phone: Neutrophils/100 WBC (Bld) 70.8 % 47-70 [facility] Work Phone: WBC (Bld) [#/Vol] 8.3 10*3/uL 4.4-11.0 [facility] Work Phone: Blood erythrocytes count (nu mber/volume)on 10-11-2021 RBC (Bld) [#/Vol] 4.66 10*6/uL 4.6-6.2 [facility] Work Phone: Blood hemoglobin measurement (mass/volume)on 10-11-2021 Hemoglobin (Bld) [Mass/Vol] 14.1 g/dL 13.0-16.5 [facility] Work Phone: Blood lymphocytes/100 leukoc yteson 10-11-2021 Lymphocytes/100 WBC (Bld) 20.0 % 19-41 [facility] Work Phone: [phone] Blood monocytes/100 leukocyt eson 10-11-2021 Monocytes/100 WBC (Bld) 8.2 % 0-10 [facility] Work Phone: Blood platelet mean volumeon 10-11-2021 Platelet mean volume (Bld) [Entitic vol] 10.7 fL 6.2-12.0 [facility] Work Phone: Determination of erythrocyte mean corpuscular volume (MCV)on 10-11-2021 MCV (RBC) [Entitic vol] 91.8 fL 80-94 [facility] Work Phone: Hematocrit Auto (Bld) [Volum e fraction]on 10-11-2021 Hematocrit (Bld) [Volume fraction] 42.8 % 40-54 [facility] Work Phone: Laboratory - Hematology and Cell countson 10-11-2021 Erythrocyte distribution width (RBC) [Entitic vol] 42.8 fL 35.1-43.9 [facility] Work Phone: Erythrocyte distribution width (RBC) [Ratio] 12.8 % 11.6-14.6 [facility] Work Phone: Immature granulocytes/100 WBC (Bld) 0.400 % 0.0-0.9 [facility] Work Phone: Comment on above: IG% - Immature Granu locytes (promyelocytes, myelocytes and metamyelocytes) > 1% indicates that a LEFT SHIFT is Present. MCH (RBC) [Entitic mass] 30.3 pg 27.0-32.0 [facility] Work Phone: Nucleated RBC/100 WBC (Bld) [Ratio] 0 % 0-5 [facility] Work Phone: MCHC Auto (RBC) [Mass/Vol]on 10-11-2021 MCHC (RBC) [Mass/Vol] 32.9 g/dL 32-36 [facility] Platelets bldon 10-11-2021 Platelets (Bld) [#/Vol] 193 10*3/uL 150-450 [facility] Work Phone: Absolute lymphocyte counton 10-04-2021 Lymphocytes Auto (Unsp spec) [#/Vol] 1.97 10*3/uL 0.83-4.51 [facility] Work Phone: Basophil percentageon 2021 Basophils/100 WBC (Bld) 0.5 % 0-1 [facility] Work Phone: Eosinophils/100 WBC (Bld) 0.1 % 0-5 [facility] Work Phone: Neutrophils (Bld) [#/Vol] 5.0 10*3/uL 2.0-7.7 [facility] Work Phone: Neutrophils/100 WBC (Bld) 64.4 % 47-70 [facility] Work Phone: WBC (Bld) [#/Vol] 7.7 10*3/uL 4.4-11.0 [facility] Work Phone: Blood erythrocytes count (nu mber/volume)on 10-04-2021 RBC (Bld) [#/Vol] 4.52 10*6/uL 4.6-6.2 [facility]: Blood hemoglobin measurement (mass/volume)on 10-04-2021 Hemoglobin (Bld) [Mass/Vol] 13.9 g/dL 13.0-16.5 [facility] Work Phone: Blood lymphocytes/100 leukoc yteson 10-04-2021 Lymphocytes/100 WBC (Bld) 25.6 % 19-41 [facility] Work Phone: Blood monocytes/100 leukocyt eson 10-04-2021 Monocytes/100 WBC (Bld) 9.0 % 0-10 [facility] Work Phone: Blood platelet mean volumeon 10-04-2021 Platelet mean volume (Bld) [Entitic vol] 11.0 fL 6.2-12.0 [facility] Work Phone: Determination of erythrocyte mean corpuscular volume (MCV)on 10-04-2021 MCV (RBC) [Entitic vol] 91.4 fL 80-94 [facility] Work Phone: Hematocrit Auto (Bld) [Volum e fraction]on 10-04-2021 Hematocrit (Bld) [Volume fraction] 41.3 % 40-54 [facility] Work Phone: Laboratory - Hematology and Cell countson 10-04-2021 Erythrocyte distribution width (RBC) [Entitic vol] 42.2 fL 35.1-43.9 [facility] Work Phone: Erythrocyte distribution width (RBC) [Ratio] 12.8 % 11.6-14.6 [facility] Work Phone: Immature granulocytes/100 WBC (Bld) 0.400 % 0.0-0.9 [facility] Work Phone: Comment on above: IG% - Immature Granu locytes (promyelocytes, myelocytes and metamyelocytes) > 1% indicates that a LEFT SHIFT is Present. MCH (RBC) [Entitic mass] 30.8 pg 27.0-32.0 [facility] Work Phone: Nucleated RBC/100 WBC (Bld) [Ratio] 0 % 0-5 [facility] Work Phone: MCHC Auto (RBC) [Mass/Vol]on 10-04-2021 MCHC (RBC) [Mass/Vol] 33.7 g/dL 32-36 [facility]: Platelets bldon 10-04-2021 Platelets (Bld) [#/Vol] 179 10*3/uL 150-450 [facility] Work Phone: Absolute lymphocyte counton 09-28-2021 Lymphocytes Auto (Unsp spec) [#/Vol] 2.10 10*3/uL 0.83-4.51 [facility] Work Phone: Basophil percentageon 2021 Basophils/100 WBC (Bld) 0.4 % 0-1 [facility] Work Phone: Eosinophils/100 WBC (Bld) 0.3 % 0-5 [facility] Work Phone: Neutrophils (Bld) [#/Vol] 4.3 10*3/uL 2.0-7.7 [facility] Work Phone: Neutrophils/100 WBC (Bld) 59.9 % 47-70 [facility] Work Phone: WBC (Bld) [#/Vol] 7.2 10*3/uL 4.4-11.0 [facility] Work Phone: Blood erythrocytes count (nu mber/volume)on 09-28-2021 RBC (Bld) [#/Vol] 4.34 10*6/uL 4.6-6.2 [facility] Work Phone: Blood hemoglobin measurement (mass/volume)on 09-28-2021 Hemoglobin (Bld) [Mass/Vol] 13.3 g/dL 13.0-16.5 [facility] Work Phone: Blood lymphocytes/100 leukoc yteson 09-28-2021 Lymphocytes/100 WBC (Bld) 29.3 % 19-41 [facility] Work Phone: Blood monocytes/100 leukocyt eson 09-28-2021 Monocytes/100 WBC (Bld) 9.8 % 0-10 [facility] Work Phone: Blood platelet mean volumeon 09-28-2021 Platelet mean volume (Bld) [Entitic vol] 10.7 fL 6.2-12.0 [facility] Work Phone: Determination of erythrocyte mean corpuscular volume (MCV)on 09-28-2021 MCV (RBC) [Entitic vol] 91.2 fL 80-94 [facility] Work Phone: Hematocrit Auto (Bld) [Volum e fraction]on 09-28-2021 Hematocrit (Bld) [Volume fraction] 39.6 % 40-54 [facility] Work Phone: Laboratory - Hematology and Cell countson 09-28-2021 Erythrocyte distribution width (RBC) [Entitic vol] 41.8 fL 35.1-43.9 [facility] Work Phone: [phone] Erythrocyte distribution width (RBC) [Ratio] 12.6 % 11.6-14.6 [facility] Work Phone: [phone] Immature granulocytes/100 WBC (Bld) 0.300 % 0.0-0.9 [facility] Work Phone: Comment on above: IG% - Immature Granu locytes (promyelocytes, myelocytes and metamyelocytes) > 1% indicates that a LEFT SHIFT is Present. MCH (RBC) [Entitic mass] 30.6 pg 27.0-32.0 [facility] Work Phone: [phone] Nucleated RBC/100 WBC (Bld) [Ratio] 0 % 0-5 [facility] Work Phone: [phone] MCHC Auto (RBC) [Mass/Vol]on 09-28-2021 MCHC (RBC) [Mass/Vol] 33.6 g/dL 32-36 [facility] Work Phone: Platelets bldon 09-28-2021 Platelets (Bld) [#/Vol] 181 10*3/uL 150-450 [facility] Work Phone: Absolute lymphocyte counton 09-20-2021 Lymphocytes Auto (Unsp spec) [#/Vol] 1.79 10*3/uL 0.83-4.51 [facility] Work Phone: Basophil percentageon 2021 Basophils/100 WBC (Bld) 0.4 % 0-1 [facility] Work Phone: Eosinophils/100 WBC (Bld) 0.3 % 0-5 [facility] Work Phone: Neutrophils (Bld) [#/Vol] 4.1 10*3/uL 2.0-7.7 [facility] Work Phone: Neutrophils/100 WBC (Bld) 61.3 % 47-70 [facility] Work Phone: WBC (Bld) [#/Vol] 6.7 10*3/uL 4.4-11.0 [facility] Work Phone: Blood erythrocytes count (nu mber/volume)on 09-20-2021 RBC (Bld) [#/Vol] 4.32 10*6/uL 4.6-6.2 [facility]: Blood hemoglobin measurement (mass/volume)on 09-20-2021 Hemoglobin (Bld) [Mass/Vol] 13.6 g/dL 13.0-16.5 [facility] Work Phone: Blood lymphocytes/100 leukoc yteson 09-20-2021 Lymphocytes/100 WBC (Bld) 26.8 % 19-41 [facility] Work Phone: Blood monocytes/100 leukocyt eson 09-20-2021 Monocytes/100 WBC (Bld) 10.8 % 0-10 [facility] Work Phone: Blood platelet mean volumeon 09-20-2021 Platelet mean volume (Bld) [Entitic vol] 10.7 fL 6.2-12.0 [facility] Work Phone: Determination of erythrocyte mean corpuscular volume (MCV)on 09-20-2021 MCV (RBC) [Entitic vol] 93.1 fL 80-94 [facility] Work Phone: Hematocrit Auto (Bld) [Volum e fraction]on 09-20-2021 Hematocrit (Bld) [Volume fraction] 40.2 % 40-54 [facility] Work Phone: Laboratory - Hematology and Cell countson 09-20-2021 Erythrocyte distribution width (RBC) [Entitic vol] 43.0 fL 35.1-43.9 [facility] Work Phone: Erythrocyte distribution width (RBC) [Ratio] 12.6 % 11.6-14.6 [facility] Work Phone: Immature granulocytes/100 WBC (Bld) 0.400 % 0.0-0.9 [facility] Work Phone: [phone] Comment on above: IG% - Immature Granu locytes (promyelocytes, myelocytes and metamyelocytes) > 1% indicates that a LEFT SHIFT is Present. MCH (RBC) [Entitic mass] 31.5 pg 27.0-32.0 [facility] Work Phone: [phone] Nucleated RBC/100 WBC (Bld) [Ratio] 0 % 0-5 [facility] Work Phone: MCHC Auto (RBC) [Mass/Vol]on 09-20-2021 MCHC (RBC) [Mass/Vol] 33.8 g/dL 32-36 [facility] Work Phone: Platelets bldon 09-20-2021 Platelets (Bld) [#/Vol] 170 10*3/uL 150-450 [facility] Work Phone: [phone] Absolute lymphocyte counton 09-13-2021 Lymphocytes Auto (Unsp spec) [#/Vol] 1.85 10*3/uL 0.83-4.51 [facility] Work Phone: [phone] Basophil percentageon 2021 Basophils/100 WBC (Bld) 0.6 % 0-1 [facility] Work Phone: Eosinophils/100 WBC (Bld) 0.3 % 0-5 [facility] Work Phone: Neutrophils (Bld) [#/Vol] 4.3 10*3/uL 2.0-7.7 [facility] Work Phone: Neutrophils/100 WBC (Bld) 63.1 % 47-70 [facility] Work Phone: WBC (Bld) [#/Vol] 6.7 10*3/uL 4.4-11.0 [facility] Work Phone: [phone] Blood erythrocytes count (nu mber/volume)on 09-13-2021 RBC (Bld) [#/Vol] 4.63 10*6/uL 4.6-6.2 [facility] Work [facility]: Blood hemoglobin measurement (mass/volume)on 09-13-2021 Hemoglobin (Bld) [Mass/Vol] 14.2 g/dL 13.0-16.5 [facility] Work Phone: Blood lymphocytes/100 leukoc yteson 09-13-2021 Lymphocytes/100 WBC (Bld) 27.5 % 19-41 [facility] Work Phone: Blood monocytes/100 leukocyt eson 09-13-2021 Monocytes/100 WBC (Bld) 8.2 % 0-10 [facility] Work Phone: Blood platelet mean volumeon 09-13-2021 Platelet mean volume (Bld) [Entitic vol] 11.0 fL 6.2-12.0 [facility] Work Phone: Determination of erythrocyte mean corpuscular volume (MCV)on 09-13-2021 MCV (RBC) [Entitic vol] 93.5 fL 80-94 [facility] Work Phone: Hematocrit Auto (Bld) [Volum e fraction]on 09-13-2021 Hematocrit (Bld) [Volume fraction] 43.3 % 40-54 [facility] Work Phone: Laboratory - Hematology and Cell countson 09-13-2021 Erythrocyte distribution width (RBC) [Entitic vol] 43.0 fL 35.1-43.9 [facility] Work Phone: Erythrocyte distribution width (RBC) [Ratio] 12.6 % 11.6-14.6 [facility] Work Phone: Immature granulocytes/100 WBC (Bld) 0.300 % 0.0-0.9 [facility] Work Phone: Comment on above: IG% - Immature Granu locytes (promyelocytes, myelocytes and metamyelocytes) > 1% indicates that a LEFT SHIFT is Present. MCH (RBC) [Entitic mass] 30.7 pg 27.0-32.0 [facility] Work Phone: Nucleated RBC/100 WBC (Bld) [Ratio] 0 % 0-5 [facility] Work Phone: MCHC Auto (RBC) [Mass/Vol]on 09-13-2021 MCHC (RBC) [Mass/Vol] 32.8 g/dL 32-36 [facility] Work Phone: Platelets bldon 09-13-2021 Platelets (Bld) [#/Vol] 188 10*3/uL 150-450 [facility] Work Phone: [phone] Absolute lymphocyte counton 09-06-2021 Lymphocytes Auto (Unsp spec) [#/Vol] 1.86 10*3/uL 0.83-4.51 [facility] Work Phone: [phone] Basophil percentageon 2021 Basophils/100 WBC (Bld) 0.7 % 0-1 [facility] Work Phone: Eosinophils/100 WBC (Bld) 0.3 % 0-5 [facility] Work Phone: Neutrophils (Bld) [#/Vol] 4.4 10*3/uL 2.0-7.7 [facility] Work Phone: Neutrophils/100 WBC (Bld) 62.6 % 47-70 [facility] Work Phone: WBC (Bld) [#/Vol] 7.0 10*3/uL 4.4-11.0 [facility] Work Phone: [phone] Blood erythrocytes count (nu mber/volume)on 09-06-2021 RBC (Bld) [#/Vol] 4.51 10*6/uL 4.6-6.2 [facility] Work Phone: [phone] Blood hemoglobin measurement (mass/volume)on 09-06-2021 Hemoglobin (Bld) [Mass/Vol] 13.8 g/dL 13.0-16.5 [facility] Work Phone: Blood lymphocytes/100 leukoc yteson 09-06-2021 Lymphocytes/100 WBC (Bld) 26.5 % 19-41 [facility] Work Phone: Blood monocytes/100 leukocyt eson 09-06-2021 Monocytes/100 WBC (Bld) 9.5 % 0-10 [facility] Work Phone: Blood platelet mean volumeon 09-06-2021 Platelet mean volume (Bld) [Entitic vol] 10.7 fL 6.2-12.0 [facility] Work Phone: Determination of erythrocyte mean corpuscular volume (MCV)on 09-06-2021 MCV (RBC) [Entitic vol] 92.9 fL 80-94 [facility] Work Phone: Hematocrit Auto (Bld) [Volum e fraction]on 09-06-2021 Hematocrit (Bld) [Volume fraction] 41.9 % 40-54 [facility] Work Phone: Laboratory - Hematology and Cell countson 09-06-2021 Erythrocyte distribution width (RBC) [Entitic vol] 43.0 fL 35.1-43.9 [facility] Work Phone: Erythrocyte distribution width (RBC) [Ratio] 12.7 % 11.6-14.6 [facility] Work Phone: Immature granulocytes/100 WBC (Bld) 0.400 % 0.0-0.9 [facility] Work Phone: Comment on above: IG% - Immature Granu locytes (promyelocytes, myelocytes and metamyelocytes) > 1% indicates that a LEFT SHIFT is Present. MCH (RBC) [Entitic mass] 30.6 pg 27.0-32.0 [facility] Work Phone: Nucleated RBC/100 WBC (Bld) [Ratio] 0 % 0-5 [facility] Work Phone: MCHC Auto (RBC) [Mass/Vol]on 09-06-2021 MCHC (RBC) [Mass/Vol] 32.9 g/dL 32-36 [facility] Work Phone: [phone] Platelets bldon 09-06-2021 Platelets (Bld) [#/Vol] 189 10*3/uL 150-450 [facility] Work Phone: [phone] Absolute lymphocyte counton 08-30-2021 Lymphocytes Auto (Unsp spec) [#/Vol] 1.44 10*3/uL 0.83-4.51 [facility] Work Phone: [phone] Basophil percentageon 2021 Basophils/100 WBC (Bld) 0.3 % 0-1 [facility] Work Phone: [phone] Eosinophils/100 WBC (Bld) 0.2 % 0-5 [facility] Work Phone: [phone] Neutrophils (Bld) [#/Vol] 9.6 10*3/uL 2.0-7.7 [facility] Work Phone: Neutrophils/100 WBC (Bld) 80.4 % 47-70 [facility] Work Phone: [phone] WBC (Bld) [#/Vol] 12.0 10*3/uL 4.4-11.0 [facility] Work Phone: Blood erythrocytes count (nu mber/volume)on 08-30-2021 RBC (Bld) [#/Vol] 4.52 10*6/uL 4.6-6.2 [facility] Work Phone: Blood hemoglobin measurement (mass/volume)on 08-30-2021 Hemoglobin (Bld) [Mass/Vol] 13.9 g/dL 13.0-16.5 [facility] Work Phone: [phone] Blood lymphocytes/100 leukoc yteson 08-30-2021 Lymphocytes/100 WBC (Bld) 12.0 % 19-41 [facility] Work Phone: [phone] Blood monocytes/100 leukocyt eson 05-02-2022 Monocytes/100 WBC (Bld) 6.7 % 0-10 [facility] Work Phone: Blood platelet mean volumeon 08-30-2021 Platelet mean volume (Bld) [Entitic vol] 11.3 fL 6.2-12.0 [facility] Work Phone: Determination of erythrocyte mean corpuscular volume (MCV)on 08-30-2021 MCV (RBC) [Entitic vol] 92.7 fL 80-94 [facility] Work Phone: Hematocrit Auto (Bld) [Volum e fraction]on 08-30-2021 Hematocrit (Bld) [Volume fraction] 41.9 % 40-54 [facility] Work Phone: Laboratory - Hematology and Cell countson 08-30-2021 Erythrocyte distribution width (RBC) [Entitic vol] 42.6 fL 35.1-43.9 [facility] Work Phone: Erythrocyte distribution width (RBC) [Ratio] 12.6 % 11.6-14.6 [facility] Work Phone: Immature granulocytes/100 WBC (Bld) 0.400 % 0.0-0.9 [facility] Work Phone: Comment on above: IG% - Immature Granu locytes (promyelocytes, myelocytes and metamyelocytes) > 1% indicates that a LEFT SHIFT is Present. MCH (RBC) [Entitic mass] 30.8 pg 27.0-32.0 [facility] Work Phone: Nucleated RBC/100 WBC (Bld) [Ratio] 0 % 0-5 [facility] Work Phone: MCHC Auto (RBC) [Mass/Vol]on 08-30-2021 MCHC (RBC) [Mass/Vol] 33.2 g/dL 32-36 [facility] Work Phone: Platelets bldon 08-30-2021 Platelets (Bld) [#/Vol] 200 10*3/uL 150-450 [facility] Work Phone: Absolute lymphocyte counton 08-23-2021 Lymphocytes Auto (Unsp spec) [#/Vol] 1.91 10*3/uL 0.83-4.51 [facility] Work Phone: Basophil percentageon 2021 Basophils/100 WBC (Bld) 0.4 % 0-1 [facility] Work Phone: Eosinophils/100 WBC (Bld) 0.3 % 0-5 [facility] Work Phone: [phone] Neutrophils (Bld) [#/Vol] 4.2 10*3/uL 2.0-7.7 [facility] Work Phone: Neutrophils/100 WBC (Bld) 62.3 % 47-70 [facility] Work Phone: WBC (Bld) [#/Vol] 6.8 10*3/uL 4.4-11.0 [facility]: Blood erythrocytes count (nu mber/volume)on 08-23-2021 RBC (Bld) [#/Vol] 4.46 10*6/uL 4.6-6.2 [facility]: Blood hemoglobin measurement (mass/volume)on 08-23-2021 Hemoglobin (Bld) [Mass/Vol] 13.7 g/dL 13.0-16.5 [facility] Work Phone: Blood lymphocytes/100 leukoc yteson 08-23-2021 Lymphocytes/100 WBC (Bld) 28.3 % 19-41 [facility] Work Phone: Blood monocytes/100 leukocyt eson 08-23-2021 Monocytes/100 WBC (Bld) 8.1 % 0-10 [facility] Work Phone: Blood platelet mean volumeon 08-23-2021 Platelet mean volume (Bld) [Entitic vol] 10.6 fL 6.2-12.0 [facility] Work Phone: Determination of erythrocyte mean corpuscular volume (MCV)on 08-23-2021 MCV (RBC) [Entitic vol] 93.0 fL 80-94 [facility] Work Phone: Hematocrit Auto (Bld) [Volum e fraction]on 08-23-2021 Hematocrit (Bld) [Volume fraction] 41.5 % 40-54 [facility] Work Phone: Laboratory - Hematology and Cell countson 08-23-2021 Erythrocyte distribution width (RBC) [Entitic vol] 42.4 fL 35.1-43.9 [facility] Work Phone: Erythrocyte distribution width (RBC) [Ratio] 12.5 % 11.6-14.6 [facility] Work Phone: Immature granulocytes/100 WBC (Bld) 0.600 % 0.0-0.9 [facility] Work Phone: Comment on above: IG% - Immature Granu locytes (promyelocytes, myelocytes and metamyelocytes) > 1% indicates that a LEFT SHIFT is Present. MCH (RBC) [Entitic mass] 30.7 pg 27.0-32.0 [facility] Work Phone: Nucleated RBC/100 WBC (Bld) [Ratio] 0 % 0-5 [facility] Work Phone: MCHC Auto (RBC) [Mass/Vol]on 08-23-2021 MCHC (RBC) [Mass/Vol] 33.0 g/dL 32-36 [facility] Work Phone: Platelets bldon 08-23-2021 Platelets (Bld) [#/Vol] 198 10*3/uL 150-450 [facility] Work Phone: Basophil percentageon 2021 Basophil percentage 0 SEEN /hpf 0-5 [facility] Work Phone: Bilirubin Test strip Ql (U)o n 08-18-2021 Bilirubin Ql (U) Negative Negative [facility] Work Phone: Culture, urineon 08-18-2021 Bacteria identified Cx Nom (U) Culture exhibits no growth. [facility] Work Phone: Ketones Test strip Ql (U)on 08-18-2021 Ketones Ql (U) Negative Negative [facility] Work Phone: Mucus LM Ql (Urine sed)on Mucus Ql (Urine sed) 0 SEEN /hpf [facility] Work Phone: Nitrite Test strip Ql (U)on 08-18-2021 Nitrite Ql (U) Negative Negative [facility] Work Phone: Protein Test strip Ql (U)on 08-18-2021 Protein Ql (U) Negative Negative [facility] Work Phone: Squamous epithelial cells de tection in urine sediment by light microscopyon 08-18-2021 Epithelial cells.squamous LM Ql (Urine sed) 0 SEEN /hpf 0-5 [facility] Work Phone: Urine blood detectionon 07-31 RBC Ql (U) Negative Negative [facility] Work Phone: RBC Ql (U) 0 SEEN /hpf 0-5 [facility] Work Phone: Urine clarityon 08-18-2021 Clarity (U) Clear Clear [facility] Work Phone: Urine color determinationon 08-18-2021 Color (U) Yellow Yellow [facility] Work Phone: Urine glucose detectionon Glucose Ql (U) Normal mg/dl Normal [facility] Work Phone: Urine leukocyte esterase det ection by dipstickon 08-18-2021 Leukocyte esterase Test strip Ql (U) Negative Negative [facility] Work Phone: Urine pHon 08-18-2021 pH (U) 7.0 [pH] 5.0 - 8.0 [facility] Work Phone: Urine sediment bacteria coun t by microscopy (number/high power field)on 08-18-2021 Bacteria LM.HPF (Urine sed) [#/Area] 0 /[HPF] None Seen [facility] Work Phone: Urine specific gravity measu rementon 08-18-2021 Specific gravity (U) [Rel density] 1.010 1.002-1.030 [facility] Work Phone: Urobilinogen Auto test strip Ql (U)on 08-18-2021 Urobilinogen Ql (U) 4 mg/dl Normal [facility] Work Phone: Absolute lymphocyte counton 08-16-2021 Lymphocytes Auto (Unsp spec) [#/Vol] 1.71 10*3/uL 0.83-4.51 [facility] Work Phone: Basophil percentageon 2021 Basophils/100 WBC (Bld) 0.3 % 0-1 [facility] Work Phone: Eosinophils/100 WBC (Bld) 0.2 % 0-5 [facility] Work Phone: Neutrophils (Bld) [#/Vol] 8.6 10*3/uL 2.0-7.7 [facility] Work Phone: Neutrophils/100 WBC (Bld) 76.8 % 47-70 [facility] Work Phone: WBC (Bld) [#/Vol] 11.2 10*3/uL 4.4-11.0 [facility] Work Phone: Blood erythrocytes count (nu mber/volume)on 08-16-2021 RBC (Bld) [#/Vol] 4.42 10*6/uL 4.6-6.2 [facility] Work Phone: Blood hemoglobin measurement (mass/volume)on 08-16-2021 Hemoglobin (Bld) [Mass/Vol] 13.4 g/dL 13.0-16.5 [facility] Work Phone: Blood lymphocytes/100 leukoc yteson 08-16-2021 Lymphocytes/100 WBC (Bld) 15.2 % 19-41 [facility] Work Phone: Blood monocytes/100 leukocyt eson 08-16-2021 Monocytes/100 WBC (Bld) 7.1 % 0-10 [facility] Work Phone: Blood platelet mean volumeon 08-16-2021 Platelet mean volume (Bld) [Entitic vol] 11.0 fL 6.2-12.0 [facility] Work Phone: Determination of erythrocyte mean corpuscular volume (MCV)on 08-16-2021 MCV (RBC) [Entitic vol] 91.9 fL 80-94 [facility] Work Phone: Hematocrit Auto (Bld) [Volum e fraction]on 08-16-2021 Hematocrit (Bld) [Volume fraction] 40.6 % 40-54 [facility] Work Phone: Laboratory - Hematology and Cell countson 08-16-2021 Erythrocyte distribution width (RBC) [Entitic vol] 43.0 fL 35.1-43.9 [facility] Work Phone: Erythrocyte distribution width (RBC) [Ratio] 12.7 % 11.6-14.6 [facility] Work Phone: Immature granulocytes/100 WBC (Bld) 0.400 % 0.0-0.9 [facility] Work Phone: Comment on above: IG% - Immature Granu locytes (promyelocytes, myelocytes and metamyelocytes) > 1% indicates that a LEFT SHIFT is Present. MCH (RBC) [Entitic mass] 30.3 pg 27.0-32.0 [facility] Work Phone: Nucleated RBC/100 WBC (Bld) [Ratio] 0 % 0-5 [facility] Work Phone: MCHC Auto (RBC) [Mass/Vol]on 08-16-2021 MCHC (RBC) [Mass/Vol] 33.0 g/dL 32-36 [facility] Work Phone: Platelets bldon 08-16-2021 Platelets (Bld) [#/Vol] 187 10*3/uL 150-450 [facility] Work Phone: Absolute lymphocyte counton 08-09-2021 Lymphocytes Auto (Unsp spec) [#/Vol] 1.78 10*3/uL 0.83-4.51 [facility] Work Phone: [phone] Basophil percentageon 2021 Basophils/100 WBC (Bld) 0.5 % 0-1 [facility] Work Phone: [phone] Eosinophils/100 WBC (Bld) 0.1 % 0-5 [facility] Work Phone: [phone] Neutrophils (Bld) [#/Vol] 6.0 10*3/uL 2.0-7.7 [facility] Work Phone: [phone] Neutrophils/100 WBC (Bld) 71.3 % 47-70 [facility] Work Phone: [phone] WBC (Bld) [#/Vol] 8.4 10*3/uL 4.4-11.0 [facility] Work Phone: Blood erythrocytes count (nu mber/volume)on 08-09-2021 RBC (Bld) [#/Vol] 4.37 10*6/uL 4.6-6.2 [facility] Work Phone: Blood hemoglobin measurement (mass/volume)on 08-09-2021 Hemoglobin (Bld) [Mass/Vol] 13.5 g/dL 13.0-16.5 [facility] Work Phone: [phone] Blood lymphocytes/100 leukoc yteson 08-09-2021 Lymphocytes/100 WBC (Bld) 21.2 % 19-41 [facility] Work Phone: [phone] Blood monocytes/100 leukocyt eson 08-09-2021 Monocytes/100 WBC (Bld) 6.5 % 0-10 [facility] Work Phone: Blood platelet mean volumeon 08-09-2021 Platelet mean volume (Bld) [Entitic vol] 11.1 fL 6.2-12.0 [facility] [facility] Work Phone: Determination of erythrocyte mean corpuscular volume (MCV)on 08-09-2021 MCV (RBC) [Entitic vol] 91.3 fL 80-94 [facility] Work Phone: Hematocrit Auto (Bld) [Volum e fraction]on 08-09-2021 Hematocrit (Bld) [Volume fraction] 39.9 % 40-54 [facility] Work Phone: Laboratory - Hematology and Cell countson 08-09-2021 Erythrocyte distribution width (RBC) [Entitic vol] 41.4 fL 35.1-43.9 [facility] Work Phone: Erythrocyte distribution width (RBC) [Ratio] 12.5 % 11.6-14.6 [facility] Work Phone: Immature granulocytes/100 WBC (Bld) 0.400 % 0.0-0.9 [facility] Work Phone: Comment on above: IG% - Immature Granu locytes (promyelocytes, myelocytes and metamyelocytes) > 1% indicates that a LEFT SHIFT is Present. MCH (RBC) [Entitic mass] 30.9 pg 27.0-32.0 [facility] Work Phone: Nucleated RBC/100 WBC (Bld) [Ratio] 0 % 0-5 [facility] Work Phone: MCHC Auto (RBC) [Mass/Vol]on 08-09-2021 MCHC (RBC) [Mass/Vol] 33.8 g/dL 32-36 [facility]: Platelets bldon 08-09-2021 Platelets (Bld) [#/Vol] 177 10*3/uL 150-450 [facility] Work Phone: Absolute lymphocyte counton 08-02-2021 Lymphocytes Auto (Unsp spec) [#/Vol] 1.69 10*3/uL 0.83-4.51 [facility] Work Phone: Basophil percentageon 2021 Basophils/100 WBC (Bld) 0.3 % 0-1 [facility] Work Phone: [phone] Eosinophils/100 WBC (Bld) 0.3 % 0-5 [facility] Work Phone: Neutrophils (Bld) [#/Vol] 3.8 10*3/uL 2.0-7.7 [facility] Work Phone: Neutrophils/100 WBC (Bld) 61.9 % 47-70 [facility] Work Phone: WBC (Bld) [#/Vol] 6.1 10*3/uL 4.4-11.0 [facility]: Blood erythrocytes count (nu mber/volume)on 08-02-2021 RBC (Bld) [#/Vol] 4.54 10*6/uL 4.6-6.2 [facility]: Blood hemoglobin measurement (mass/volume)on 08-02-2021 Hemoglobin (Bld) [Mass/Vol] 13.8 g/dL 13.0-16.5 [facility] Work Phone: Blood lymphocytes/100 leukoc yteson 08-02-2021 Lymphocytes/100 WBC (Bld) 27.7 % 19-41 [facility] Work Phone: Blood monocytes/100 leukocyt eson 08-02-2021 Monocytes/100 WBC (Bld) 9.5 % 0-10 [facility] Work Phone: Blood platelet mean volumeon 08-02-2021 Platelet mean volume (Bld) [Entitic vol] 11.2 fL 6.2-12.0 [facility] Work Phone: Determination of erythrocyte mean corpuscular volume (MCV)on 08-02-2021 MCV (RBC) [Entitic vol] 90.1 fL 80-94 [facility] Work Phone: Hematocrit Auto (Bld) [Volum e fraction]on 08-02-2021 Hematocrit (Bld) [Volume fraction] 40.9 % 40-54 [facility] Work Phone: Laboratory - Hematology and Cell countson 08-02-2021 Erythrocyte distribution width (RBC) [Entitic vol] 40.3 fL 35.1-43.9 [facility] Work Phone: Erythrocyte distribution width (RBC) [Ratio] 12.4 % 11.6-14.6 [facility] Work Phone: [phone] Immature granulocytes/100 WBC (Bld) 0.300 % 0.0-0.9 [facility] Work Phone: Comment on above: IG% - Immature Granu locytes (promyelocytes, myelocytes and metamyelocytes) > 1% indicates that a LEFT SHIFT is Present. MCH (RBC) [Entitic mass] 30.4 pg 27.0-32.0 [facility] Work Phone: Nucleated RBC/100 WBC (Bld) [Ratio] 0 % 0-5 [facility] Work Phone: MCHC Auto (RBC) [Mass/Vol]on 08-02-2021 MCHC (RBC) [Mass/Vol] 33.7 g/dL 32-36 [facility] Work [facility]: Platelets bldon 08-02-2021 Platelets (Bld) [#/Vol] 192 10*3/uL 150-450 [facility] Work Phone: Absolute lymphocyte counton 07-26-2021 Lymphocytes Auto (Unsp spec) [#/Vol] 1.83 10*3/uL 0.83-4.51 [facility] Work Phone: [phone] Basophil percentageon 2021 Basophils/100 WBC (Bld) 0.5 % 0-1 [facility] Work Phone: Eosinophils/100 WBC (Bld) 0.3 % 0-5 [facility] Work Phone: Neutrophils (Bld) [#/Vol] 3.3 10*3/uL 2.0-7.7 [facility] Work Phone: Neutrophils/100 WBC (Bld) 58.1 % 47-70 [facility] Work Phone: WBC (Bld) [#/Vol] 5.7 10*3/uL 4.4-11.0 [facility] Work Phone: Blood erythrocytes count (nu mber/volume)on 07-26-2021 RBC (Bld) [#/Vol] 4.21 10*6/uL 4.6-6.2 [facility] Work Phone: Blood hemoglobin measurement (mass/volume)on 07-26-2021 Hemoglobin (Bld) [Mass/Vol] 12.9 g/dL 13.0-16.5 [facility] Work Phone: Blood lymphocytes/100 leukoc yteson 07-26-2021 Lymphocytes/100 WBC (Bld) 31.9 % 19-41 [facility] Work Phone: Blood monocytes/100 leukocyt eson 07-26-2021 Monocytes/100 WBC (Bld) 8.9 % 0-10 [facility] Work Phone: Blood platelet mean volumeon 07-26-2021 Platelet mean volume (Bld) [Entitic vol] 11.5 fL 6.2-12.0 [facility] Work Phone: Determination of erythrocyte mean corpuscular volume (MCV)on 07-26-2021 MCV (RBC) [Entitic vol] 90.7 fL 80-94 [facility] Work Phone: Hematocrit Auto (Bld) [Volum e fraction]on 07-26-2021 Hematocrit (Bld) [Volume fraction] 38.2 % 40-54 [facility] Work Phone: Laboratory - Hematology and Cell countson 07-26-2021 Erythrocyte distribution width (RBC) [Entitic vol] 41.2 fL 35.1-43.9 [facility] Work Phone: [phone] Erythrocyte distribution width (RBC) [Ratio] 12.5 % 11.6-14.6 [facility] Work Phone: [phone] Immature granulocytes/100 WBC (Bld) 0.300 % 0.0-0.9 [facility] Work Phone: Comment on above: IG% - Immature Granu locytes (promyelocytes, myelocytes and metamyelocytes) > 1% indicates that a LEFT SHIFT is Present. MCH (RBC) [Entitic mass] 30.6 pg 27.0-32.0 [facility] Work Phone: Nucleated RBC/100 WBC (Bld) [Ratio] 0 % 0-5 [facility] Work Phone: MCHC Auto (RBC) [Mass/Vol]on 07-26-2021 MCHC (RBC) [Mass/Vol] 33.8 g/dL 32-36 [facility] Work Phone: [phone] Platelets bldon 07-26-2021 Platelets (Bld) [#/Vol] 180 10*3/uL 150-450 [facility] Work Phone: [phone] Absolute lymphocyte counton 07-19-2021 Lymphocytes Auto (Unsp spec) [#/Vol] 2.04 10*3/uL 0.83-4.51 [facility] Work Phone: Basophil percentageon 2021 Basophils/100 WBC (Bld) 0.3 % 0-1 [facility] Work Phone: Eosinophils/100 WBC (Bld) 0.4 % 0-5 [facility] Work Phone: Neutrophils (Bld) [#/Vol] 4.0 10*3/uL 2.0-7.7 [facility] Work Phone: [phone] Neutrophils/100 WBC (Bld) 59.2 % 47-70 [facility] Work Phone: WBC (Bld) [#/Vol] 6.7 10*3/uL 4.4-11.0 [facility] Work [facility]: Blood erythrocytes count (nu mber/volume)on 07-19-2021 RBC (Bld) [#/Vol] 4.53 10*6/uL 4.6-6.2 [facility]: Blood hemoglobin measurement (mass/volume)on 07-19-2021 Hemoglobin (Bld) [Mass/Vol] 14.1 g/dL 13.0-16.5 [facility] Work Phone: Blood lymphocytes/100 leukoc yteson 07-19-2021 Lymphocytes/100 WBC (Bld) 30.5 % 19-41 [facility] Work Phone: Blood monocytes/100 leukocyt eson 07-19-2021 Monocytes/100 WBC (Bld) 9.0 % 0-10 [facility] Work Phone: Blood platelet mean volumeon 07-19-2021 Platelet mean volume (Bld) [Entitic vol] 11.4 fL 6.2-12.0 [facility] Work Phone: Determination of erythrocyte mean corpuscular volume (MCV)on 07-19-2021 MCV (RBC) [Entitic vol] 90.5 fL 80-94 [facility] Work Phone: Hematocrit Auto (Bld) [Volum e fraction]on 07-19-2021 Hematocrit (Bld) [Volume fraction] 41.0 % 40-54 [facility] Work Phone: Laboratory - Hematology and Cell countson 07-19-2021 Erythrocyte distribution width (RBC) [Entitic vol] 41.1 fL 35.1-43.9 [facility] Work Phone: Erythrocyte distribution width (RBC) [Ratio] 12.5 % 11.6-14.6 [facility] Work Phone: Immature granulocytes/100 WBC (Bld) 0.600 % 0.0-0.9 [facility] Work Phone: Comment on above: IG% - Immature Granu locytes (promyelocytes, myelocytes and metamyelocytes) > 1% indicates that a LEFT SHIFT is Present. MCH (RBC) [Entitic mass] 31.1 pg 27.0-32.0 [facility] Work Phone: Nucleated RBC/100 WBC (Bld) [Ratio] 0 % 0-5 [facility] Work Phone: MCHC Auto (RBC) [Mass/Vol]on 07-19-2021 MCHC (RBC) [Mass/Vol] 34.4 g/dL 32-36 [facility] Work Phone: Platelets bldon 07-19-2021 Platelets (Bld) [#/Vol] 193 10*3/uL 150-450 [facility] Work Phone: Absolute lymphocyte counton 07-12-2021 Lymphocytes Auto (Unsp spec) [#/Vol] 1.42 10*3/uL 0.83-4.51 [facility] Work Phone: Basophil percentageon 2021 Basophils/100 WBC (Bld) 0.6 % 0-1 [facility] Work Phone: Eosinophils/100 WBC (Bld) 0.3 % 0-5 [facility] Work Phone: Neutrophils (Bld) [#/Vol] 4.7 10*3/uL 2.0-7.7 [facility] Work Phone: Neutrophils/100 WBC (Bld) 67.3 % 47-70 [facility] Work Phone: WBC (Bld) [#/Vol] 7.0 10*3/uL 4.4-11.0 [facility] Work Phone: Blood erythrocytes count (nu mber/volume)on 07-12-2021 RBC (Bld) [#/Vol] 4.61 10*6/uL 4.6-6.2 [facility]: Blood hemoglobin measurement (mass/volume)on 07-12-2021 Hemoglobin (Bld) [Mass/Vol] 14.4 g/dL 13.0-16.5 [facility] Work Phone: Blood lymphocytes/100 leukoc yteson 07-12-2021 Lymphocytes/100 WBC (Bld) 20.4 % 19-41 [facility] Work Phone: Blood monocytes/100 leukocyt eson 07-12-2021 Monocytes/100 WBC (Bld) 11.1 % 0-10 [facility] Work Phone: Blood platelet mean volumeon 07-12-2021 Platelet mean volume (Bld) [Entitic vol] 11.2 fL 6.2-12.0 [facility] Work Phone: Determination of erythrocyte mean corpuscular volume (MCV)on 07-12-2021 MCV (RBC) [Entitic vol] 91.1 fL 80-94 [facility] Work Phone: Hematocrit Auto (Bld) [Volum e fraction]on 07-12-2021 Hematocrit (Bld) [Volume fraction] 42.0 % 40-54 [facility] Work Phone: Laboratory - Hematology and Cell countson 07-12-2021 Erythrocyte distribution width (RBC) [Entitic vol] 41.4 fL 35.1-43.9 [facility] Work Phone: Erythrocyte distribution width (RBC) [Ratio] 12.6 % 11.6-14.6 [facility] Work Phone: Immature granulocytes/100 WBC (Bld) 0.300 % 0.0-0.9 [facility] Work Phone: Comment on above: IG% - Immature Granu locytes (promyelocytes, myelocytes and metamyelocytes) > 1% indicates that a LEFT SHIFT is Present. MCH (RBC) [Entitic mass] 31.2 pg 27.0-32.0 [facility] Work Phone: Nucleated RBC/100 WBC (Bld) [Ratio] 0 % 0-5 [facility] Work Phone: MCHC Auto (RBC) [Mass/Vol]on 07-12-2021 MCHC (RBC) [Mass/Vol] 34.3 g/dL 32-36 [facility] Work Phone: [phone] Platelets bldon 07-12-2021 Platelets (Bld) [#/Vol] 184 10*3/uL 150-450 [facility] Work Phone: Absolute lymphocyte counton 07-05-2021 Lymphocytes Auto (Unsp spec) [#/Vol] 1.55 10*3/uL 0.83-4.51 [facility] Work Phone: Basophil percentageon 2021 Basophils/100 WBC (Bld) 0.4 % 0-1 [facility] Work Phone: Cholesterol [Mass/Vol] 148 mg/dL <[address] [facility] Work Phone: Comment on above: <200 mg/dL Desirable 200-240 mg/dL Borderline >240 mg/dL High Risk Eosinophils/100 WBC (Bld) 0.3 % 0-5 [facility] Work Phone: Neutrophils (Bld) [#/Vol] 5.5 10*3/uL 2.0-7.7 [facility] Work Phone: Neutrophils/100 WBC (Bld) 70.9 % 47-70 [facility] Work Phone: Triglyceride [Mass/Vol] 201 mg/dL <199 [facility] Work Phone: [phone] Comment on above: The drugs N-Acetylcy steine and Metamizole may falsely depress this assay.Serum Triglycerides Reference Interval Normal <150 mg/dL Borderline high 150 - 199 mg/dL High 200 - 499 mg/dL Very High > or = 500 mg/dL WBC (Bld) [#/Vol] 7.8 10*3/uL 4.4-11.0 [facility] Work [facility]: Blood erythrocytes count (nu mber/volume)on 07-05-2021 RBC (Bld) [#/Vol] 4.46 10*6/uL 4.6-6.2 [facility]: Blood hemoglobin measurement (mass/volume)on 07-05-2021 Hemoglobin (Bld) [Mass/Vol] 13.4 g/dL 13.0-16.5 [facility] Work Phone: Blood lymphocytes/100 leukoc yteson 07-05-2021 Lymphocytes/100 WBC (Bld) 20.0 % 19-41 [facility] Work Phone: Blood monocytes/100 leukocyt eson 07-05-2021 Monocytes/100 WBC (Bld) 8.1 % 0-10 [facility] Work Phone: Blood platelet mean volumeon 07-05-2021 Platelet mean volume (Bld) [Entitic vol] 11.7 fL 6.2-12.0 [facility] Work Phone: Determination of erythrocyte mean corpuscular volume (MCV)on 07-05-2021 MCV (RBC) [Entitic vol] 91.0 fL 80-94 [facility] Work Phone: Hematocrit Auto (Bld) [Volum e fraction]on 07-05-2021 Hematocrit (Bld) [Volume fraction] 40.6 % 40-54 [facility] Work Phone: Laboratory - Hematology and Cell countson 07-05-2021 Erythrocyte distribution width (RBC) [Entitic vol] 41.9 fL 35.1-43.9 [facility] Work Phone: Erythrocyte distribution width (RBC) [Ratio] 12.8 % 11.6-14.6 [facility] Work Phone: Immature granulocytes/100 WBC (Bld) 0.300 % 0.0-0.9 [facility] Work Phone: Comment on above: IG% - Immature Granu locytes (promyelocytes, myelocytes and metamyelocytes) > 1% indicates that a LEFT SHIFT is Present. MCH (RBC) [Entitic mass] 30.0 pg 27.0-32.0 [facility] Work Phone: Nucleated RBC/100 WBC (Bld) [Ratio] 0 % 0-5 [facility] Work Phone: MCHC Auto (RBC) [Mass/Vol]on 07-05-2021 MCHC (RBC) [Mass/Vol] 33.0 g/dL 32-36 [facility] Work Phone: Platelets bldon 07-05-2021 Platelets (Bld) [#/Vol] 186 10*3/uL 150-450 [facility] Work Phone: Serum or plasma cholesterol in HDL measurement (mass/volume)on 07-05-2021 Cholesterol in HDL [Mass/Vol] 30 mg/dL >40 [facility] Work Phone: Comment on above: The drugs N-Acetylcy steine and Metamizole may falsely depress this assay. Reference Range HDL <40 mg/dL Low HDL Cholesterol HDL >or= 60 mg/dL High HDL Cholesterol Serum or plasma cholesterol in VLDL measurement (mass/volume)on 07-05-2021 Cholesterol in VLDL [Mass/Vol] 40 mg/dL 5-40 [facility] Work Phone: Serum or plasma low density lipoprotein (LDL) cholesterol measurement (mass/volume)on 07-05-2021 Cholesterol in LDL [Mass/Vol] 78 mg/dL 0-130 [facility] Work Phone: Absolute lymphocyte counton 06-28-2021 Lymphocytes Auto (Unsp spec) [#/Vol] 2.01 10*3/uL 0.83-4.51 [facility] Work Phone: Basophil percentageon 2021 Basophils/100 WBC (Bld) 0.5 % 0-1 [facility] Work Phone: Eosinophils/100 WBC (Bld) 0.3 % 0-5 [facility] Work Phone: Neutrophils (Bld) [#/Vol] 3.3 10*3/uL 2.0-7.7 [facility] Work Phone: Neutrophils/100 WBC (Bld) 55.5 % 47-70 [facility] Work Phone: WBC (Bld) [#/Vol] 6.0 10*3/uL 4.4-11.0 [facility] Work Phone: Blood erythrocytes count (nu mber/volume)on 06-28-2021 RBC (Bld) [#/Vol] 4.32 10*6/uL 4.6-6.2 [facility]: Blood hemoglobin measurement (mass/volume)on 06-28-2021 Hemoglobin (Bld) [Mass/Vol] 13.5 g/dL 13.0-16.5 [facility] Work Phone: Blood lymphocytes/100 leukoc yteson 06-28-2021 Lymphocytes/100 WBC (Bld) 33.5 % 19-41 [facility] Work Phone: Blood monocytes/100 leukocyt eson 06-28-2021 Monocytes/100 WBC (Bld) 10.0 % 0-10 [facility] Work Phone: Blood platelet mean volumeon 06-28-2021 Platelet mean volume (Bld) [Entitic vol] 11.8 fL 6.2-12.0 [facility] Work Phone: Determination of erythrocyte mean corpuscular volume (MCV)on 06-28-2021 MCV (RBC) [Entitic vol] 89.8 fL 80-94 [facility] Work Phone: Hematocrit Auto (Bld) [Volum e fraction]on 06-28-2021 Hematocrit (Bld) [Volume fraction] 38.8 % 40-54 [facility] Work Phone: Laboratory - Hematology and Cell countson 06-28-2021 Erythrocyte distribution width (RBC) [Entitic vol] 40.6 fL 35.1-43.9 [facility] Work Phone: Erythrocyte distribution width (RBC) [Ratio] 12.5 % 11.6-14.6 [facility] Work Phone: Immature granulocytes/100 WBC (Bld) 0.200 % 0.0-0.9 [facility] Work Phone: Comment on above: IG% - Immature Granu locytes (promyelocytes, myelocytes and metamyelocytes) > 1% indicates that a LEFT SHIFT is Present. MCH (RBC) [Entitic mass] 31.3 pg 27.0-32.0 [facility] Work Phone: Nucleated RBC/100 WBC (Bld) [Ratio] 0 % 0-5 [facility] Work Phone: MCHC Auto (RBC) [Mass/Vol]on 06-28-2021 MCHC (RBC) [Mass/Vol] 34.8 g/dL 32-36 [facility] Work [facility]: Platelets bldon 06-28-2021 Platelets (Bld) [#/Vol] 185 10*3/uL 150-450 [facility] Work Phone: Absolute lymphocyte counton 06-21-2021 Lymphocytes Auto (Unsp spec) [#/Vol] 1.78 10*3/uL 0.83-4.51 [facility] Work Phone: [phone] Basophil percentageon 2021 Basophils/100 WBC (Bld) 0.3 % 0-1 [facility] Work Phone: Eosinophils/100 WBC (Bld) 0.4 % 0-5 [facility] Work Phone: [phone] Neutrophils (Bld) [#/Vol] 4.2 10*3/uL 2.0-7.7 [facility] Work Phone: Neutrophils/100 WBC (Bld) 62.7 % 47-70 [facility] Work Phone: WBC (Bld) [#/Vol] 6.8 10*3/uL 4.4-11.0 [facility] Work Phone: Blood erythrocytes count (nu mber/volume)on 06-21-2021 RBC (Bld) [#/Vol] 4.21 10*6/uL 4.6-6.2 [facility] Work Phone: Blood hemoglobin measurement (mass/volume)on 06-21-2021 Hemoglobin (Bld) [Mass/Vol] 13.3 g/dL 13.0-16.5 [facility] Work Phone: Blood lymphocytes/100 leukoc yteson 06-21-2021 Lymphocytes/100 WBC (Bld) 26.3 % 19-41 [facility] Work Phone: Blood monocytes/100 leukocyt eson 06-21-2021 Monocytes/100 WBC (Bld) 9.9 % 0-10 [facility] Work Phone: Blood platelet mean volumeon 06-21-2021 Platelet mean volume (Bld) [Entitic vol] 11.5 fL 6.2-12.0 [facility] Work Phone: Determination of erythrocyte mean corpuscular volume (MCV)on 06-21-2021 MCV (RBC) [Entitic vol] 91.0 fL 80-94 [facility] Work Phone: Hematocrit Auto (Bld) [Volum e fraction]on 06-21-2021 Hematocrit (Bld) [Volume fraction] 38.3 % 40-54 [facility] Work Phone: Laboratory - Hematology and Cell countson 06-21-2021 Erythrocyte distribution width (RBC) [Entitic vol] 40.2 fL 35.1-43.9 [facility] Work Phone: Erythrocyte distribution width (RBC) [Ratio] 12.2 % 11.6-14.6 [facility] Work Phone: Immature granulocytes/100 WBC (Bld) 0.400 % 0.0-0.9 [facility] Work Phone: Comment on above: IG% - Immature Granu locytes (promyelocytes, myelocytes and metamyelocytes) > 1% indicates that a LEFT SHIFT is Present. MCH (RBC) [Entitic mass] 31.6 pg 27.0-32.0 [facility] Work Phone: [phone] Nucleated RBC/100 WBC (Bld) [Ratio] 0 % 0-5 [facility] Work Phone: MCHC Auto (RBC) [Mass/Vol]on 06-21-2021 MCHC (RBC) [Mass/Vol] 34.7 g/dL 32-36 [facility] Work Phone: Platelets bldon 06-21-2021 Platelets (Bld) [#/Vol] 217 10*3/uL 150-450 [facility] Work Phone: [phone] Absolute lymphocyte counton 06-14-2021 Lymphocytes Auto (Unsp spec) [#/Vol] 1.41 10*3/uL 0.83-4.51 [facility] Work Phone: [phone] Basophil percentageon 2021 Basophils/100 WBC (Bld) 0.4 % 0-1 [facility] Work Phone: [phone] Chloride [Moles/Vol] 106 mmol/L 98-107 [facility] Work Phone: [phone] Eosinophils/100 WBC (Bld) 0.6 % 0-5 [facility] Work Phone: [phone] Glucose [Mass/Vol] 121 mg/dL 74-106 [facility] Work Phone: [phone] Comment on above: Fasting Glucose resu lt from 100 to 125 mg/dL suggests IMPAIRED HOMEOSTASIS per A.D.A. criteria. Neutrophils (Bld) [#/Vol] 4.8 10*3/uL 2.0-7.7 [facility] Work Phone: Neutrophils/100 WBC (Bld) 69.9 % 47-70 [facility] Work Phone: Potassium [Moles/Vol] 3.7 mmol/L 3.5-5.1 [facility] Work Phone: Sodium [Moles/Vol] 140 mmol/L 136-145 [facility] Work Phone: WBC (Bld) [#/Vol] 6.8 10*3/uL 4.4-11.0 [facility] Work Phone: Blood erythrocytes count (nu mber/volume)on 06-14-2021 RBC (Bld) [#/Vol] 4.78 10*6/uL 4.6-6.2 [facility] Work [facility]: Blood hemoglobin measurement (mass/volume)on 06-14-2021 Hemoglobin (Bld) [Mass/Vol] 14.9 g/dL 13.0-16.5 [facility] Work Phone: Blood lymphocytes/100 leukoc yteson 06-14-2021 Lymphocytes/100 WBC (Bld) 20.8 % 19-41 [facility] Work Phone: Blood monocytes/100 leukocyt eson 06-14-2021 Monocytes/100 WBC (Bld) 7.7 % 0-10 [facility] Work Phone: Blood platelet mean volumeon 06-14-2021 Platelet mean volume (Bld) [Entitic vol] 11.5 fL 6.2-12.0 [facility] Work Phone: Determination of erythrocyte mean corpuscular volume (MCV)on 06-14-2021 MCV (RBC) [Entitic vol] 89.5 fL 80-94 [facility] Work Phone: Hematocrit Auto (Bld) [Volum e fraction]on 06-14-2021 Hematocrit (Bld) [Volume fraction] 42.8 % 40-54 [facility] Work Phone: Laboratory - Chemistry and C hemistry - challengeon 06-14-2021 CO2 [Moles/Vol] 27.0 mmol/L 21.0-32.0 [facility] Work Phone: Urea nitrogen/Creatinine [Mass ratio] 35.0 mg/mg 10-20 [facility] Work Phone: Laboratory - Hematology and Cell countson 06-14-2021 Erythrocyte distribution width (RBC) [Entitic vol] 39.3 fL 35.1-43.9 [facility] Work Phone: Erythrocyte distribution width (RBC) [Ratio] 12.0 % 11.6-14.6 [facility] Work Phone: Immature granulocytes/100 WBC (Bld) 0.600 % 0.0-0.9 [facility] Work Phone: Comment on above: IG% - Immature Granu locytes (promyelocytes, myelocytes and metamyelocytes) > 1% indicates that a LEFT SHIFT is Present. MCH (RBC) [Entitic mass] 31.2 pg 27.0-32.0 [facility] Work Phone: Nucleated RBC/100 WBC (Bld) [Ratio] 0 % 0-5 [facility] Work Phone: MCHC Auto (RBC) [Mass/Vol]on 06-14-2021 MCHC (RBC) [Mass/Vol] 34.8 g/dL 32-36 [facility] Work Phone: No Panel Informationon 06-14 Estimated GFR (MDRD) Amer 185 mL/min >60 [facility] Work Phone: Comment on above: GFR Calc Estimated GFR (MDRD) Non-Af Amer 153 mL/min >60 [facility] Work Phone: Comment on above: Non- GFR Calc Platelets bldon 06-14-2021 Platelets (Bld) [#/Vol] 223 10*3/uL 150-450 [facility] Work Phone: Serum or plasma calcium gordy urement (mass/volume)on 06-14-2021 Calcium [Mass/Vol] 8.0 mg/dL 8.5-10.1 [facility] Work Phone: Serum or plasma creatinine m easurement (mass/volume)on 06-14-2021 Creatinine [Mass/Vol] 0.57 mg/dL 0.70-1.30 [facility] Work Phone: Comment on above: The validity of the calculated GFR & GFRAA in patients over 70 years has not been determined. Clinical correlation is essential. Serum or plasma urea nitroge n measurement (mass/volume)on 06-14-2021 Urea nitrogen [Mass/Vol] 20 mg/dL 7-18 [facility] Work Phone: Thin prep Papanicolaou smear with manual screeningon 06-14-2021 Thin prep Papanicolaou smear with manual screening 7 5-15 [facility] Work Phone: Absolute lymphocyte counton 06-07-2021 Lymphocytes Auto (Unsp spec) [#/Vol] 1.38 10*3/uL 0.83-4.51 [facility] Work Phone: Basophil percentageon 2021 Basophils/100 WBC (Bld) 0.2 % 0-1 [facility] Work Phone: Eosinophils/100 WBC (Bld) 0.0 % 0-5 [facility] Work Phone: Neutrophils (Bld) [#/Vol] 7.3 10*3/uL 2.0-7.7 [facility] Work Phone: Neutrophils/100 WBC (Bld) 75.3 % 47-70 [facility] Work Phone: WBC (Bld) [#/Vol] 9.7 10*3/uL 4.4-11.0 [facility] Work Phone: Blood erythrocytes count (nu mber/volume)on 06-07-2021 RBC (Bld) [#/Vol] 4.48 10*6/uL 4.6-6.2 [facility]: Blood hemoglobin measurement (mass/volume)on 06-07-2021 Hemoglobin (Bld) [Mass/Vol] 13.8 g/dL 13.0-16.5 [facility] Work Phone: Blood lymphocytes/100 leukoc yteson 06-07-2021 Lymphocytes/100 WBC (Bld) 14.2 % 19-41 [facility] Work Phone: Blood monocytes/100 leukocyt eson 06-07-2021 Monocytes/100 WBC (Bld) 10.2 % 0-10 [facility] Work Phone: Blood platelet mean volumeon 06-07-2021 Platelet mean volume (Bld) [Entitic vol] 11.9 fL 6.2-12.0 [facility] Work Phone: Determination of erythrocyte mean corpuscular volume (MCV)on 06-07-2021 MCV (RBC) [Entitic vol] 92.9 fL 80-94 [facility] Work Phone: Hematocrit Auto (Bld) [Volum e fraction]on 06-07-2021 Hematocrit (Bld) [Volume fraction] 41.6 % 40-54 [facility] Work Phone: Laboratory - Hematology and Cell countson 06-07-2021 Erythrocyte distribution width (RBC) [Entitic vol] 43.8 fL 35.1-43.9 [facility] Work Phone: Erythrocyte distribution width (RBC) [Ratio] 12.8 % 11.6-14.6 [facility] Work Phone: Immature granulocytes/100 WBC (Bld) 0.100 % 0.0-0.9 [facility] Work Phone: Comment on above: IG% - Immature Granu locytes (promyelocytes, myelocytes and metamyelocytes) > 1% indicates that a LEFT SHIFT is Present. MCH (RBC) [Entitic mass] 30.8 pg 27.0-32.0 [facility] Work Phone: Nucleated RBC/100 WBC (Bld) [Ratio] 0 % 0-5 [facility] Work Phone: MCHC Auto (RBC) [Mass/Vol]on 06-07-2021 MCHC (RBC) [Mass/Vol] 33.2 g/dL 32-36 [facility] Work Phone: Platelets bldon 06-07-2021 Platelets (Bld) [#/Vol] 152 10*3/uL 150-450 [facility] Work Phone: Absolute lymphocyte counton 05-31-2021 Lymphocytes Auto (Unsp spec) [#/Vol] 1.72 10*3/uL 0.83-4.51 [facility] Work Phone: [phone] Basophil percentageon 2021 Basophils/100 WBC (Bld) 0.7 % 0-1 [facility] Work Phone: Eosinophils/100 WBC (Bld) 1.1 % 0-5 [facility] Work Phone: Neutrophils (Bld) [#/Vol] 3.3 10*3/uL 2.0-7.7 [facility] Work Phone: Neutrophils/100 WBC (Bld) 58.5 % 47-70 [facility] Work Phone: WBC (Bld) [#/Vol] 5.6 10*3/uL 4.4-11.0 [facility] Work Phone: [phone] Blood erythrocytes count (nu mber/volume)on 05-31-2021 RBC (Bld) [#/Vol] 4.44 10*6/uL 4.6-6.2 [facility] Work Phone: [phone] Blood hemoglobin measurement (mass/volume)on 05-31-2021 Hemoglobin (Bld) [Mass/Vol] 13.6 g/dL 13.0-16.5 [facility] Work Phone: Blood lymphocytes/100 leukoc yteson 05-31-2021 Lymphocytes/100 WBC (Bld) 30.7 % 19-41 [facility] Work Phone: Blood monocytes/100 leukocyt eson 05-31-2021 Monocytes/100 WBC (Bld) 8.6 % 0-10 [facility] Work Phone: Blood platelet mean volumeon 05-31-2021 Platelet mean volume (Bld) [Entitic vol] 11.2 fL 6.2-12.0 [facility] Work Phone: Determination of erythrocyte mean corpuscular volume (MCV)on 05-31-2021 MCV (RBC) [Entitic vol] 92.1 fL 80-94 [facility] Work Phone: Hematocrit Auto (Bld) [Volum e fraction]on 05-31-2021 Hematocrit (Bld) [Volume fraction] 40.9 % 40-54 [facility] Work Phone: Laboratory - Hematology and Cell countson 05-31-2021 Erythrocyte distribution width (RBC) [Entitic vol] 42.2 fL 35.1-43.9 [facility] Work Phone: Erythrocyte distribution width (RBC) [Ratio] 12.4 % 11.6-14.6 [facility] Work Phone: Immature granulocytes/100 WBC (Bld) 0.400 % 0.0-0.9 [facility] Work Phone: Comment on above: IG% - Immature Granu locytes (promyelocytes, myelocytes and metamyelocytes) > 1% indicates that a LEFT SHIFT is Present. MCH (RBC) [Entitic mass] 30.6 pg 27.0-32.0 [facility] Work Phone: Nucleated RBC/100 WBC (Bld) [Ratio] 0 % 0-5 [facility] Work Phone: MCHC Auto (RBC) [Mass/Vol]on 05-31-2021 MCHC (RBC) [Mass/Vol] 33.3 g/dL 32-36 [facility] Work Phone: [phone] Platelets bldon 05-31-2021 Platelets (Bld) [#/Vol] 189 10*3/uL 150-450 [facility] Work [phone] Absolute lymphocyte counton 05-24-2021 Lymphocytes Auto (Unsp spec) [#/Vol] 1.58 10*3/uL 0.83-4.51 [facility] Work Phone: [phone] Basophil percentageon 2021 Basophils/100 WBC (Bld) 0.8 % 0-1 [facility] Work Phone: [phone] Eosinophils/100 WBC (Bld) 2.4 % 0-5 [facility] Work Phone: Neutrophils (Bld) [#/Vol] 3.8 10*3/uL 2.0-7.7 [facility] Work Phone: [phone] Neutrophils/100 WBC (Bld) 60.3 % 47-70 [facility] Work Phone: [phone] WBC (Bld) [#/Vol] 6.3 10*3/uL 4.4-11.0 [facility] Work Phone: Blood erythrocytes count (nu mber/volume)on 05-24-2021 RBC (Bld) [#/Vol] 4.50 10*6/uL 4.6-6.2 [facility] Work Phone: [phone] Blood hemoglobin measurement (mass/volume)on 05-24-2021 Hemoglobin (Bld) [Mass/Vol] 13.7 g/dL 13.0-16.5 [facility] Work Phone: [phone] Blood lymphocytes/100 leukoc yteson 05-24-2021 Lymphocytes/100 WBC (Bld) 25.0 % 19-41 [facility] Work Phone: Blood monocytes/100 leukocyt eson 05-24-2021 Monocytes/100 WBC (Bld) 11.2 % 0-10 [facility] Work Phone: Blood platelet mean volumeon 05-24-2021 Platelet mean volume (Bld) [Entitic vol] 11.3 fL 6.2-12.0 [facility] Work Phone: Determination of erythrocyte mean corpuscular volume (MCV)on 05-24-2021 MCV (RBC) [Entitic vol] 92.9 fL 80-94 [facility] Work Phone: Hematocrit Auto (Bld) [Volum e fraction]on 05-24-2021 Hematocrit (Bld) [Volume fraction] 41.8 % 40-54 [facility] Work Phone: Laboratory - Hematology and Cell countson 05-24-2021 Erythrocyte distribution width (RBC) [Entitic vol] 42.8 fL 35.1-43.9 [facility] Work Phone: Erythrocyte distribution width (RBC) [Ratio] 12.6 % 11.6-14.6 [facility] Work Phone: Immature granulocytes/100 WBC (Bld) 0.300 % 0.0-0.9 [facility] Work Phone: Comment on above: IG% - Immature Granu locytes (promyelocytes, myelocytes and metamyelocytes) > 1% indicates that a LEFT SHIFT is Present. MCH (RBC) [Entitic mass] 30.4 pg 27.0-32.0 [facility] Work Phone: Nucleated RBC/100 WBC (Bld) [Ratio] 0 % 0-5 [facility] Work Phone: MCHC Auto (RBC) [Mass/Vol]on 05-24-2021 MCHC (RBC) [Mass/Vol] 32.8 g/dL 32-36 [facility] Work Phone: Platelets bldon 05-24-2021 Platelets (Bld) [#/Vol] 207 10*3/uL 150-450 [facility] Work Phone: Absolute lymphocyte counton 05-17-2021 Lymphocytes Auto (Unsp spec) [#/Vol] 1.59 10*3/uL 0.83-4.51 [facility] Work Phone: [phone] Basophil percentageon 2021 Basophils/100 WBC (Bld) 0.7 % 0-1 [facility] Work Phone: [phone] Eosinophils/100 WBC (Bld) 1.7 % 0-5 [facility] Work Phone: [phone] Neutrophils (Bld) [#/Vol] 3.5 10*3/uL 2.0-7.7 [facility] Work Phone: [phone] Neutrophils/100 WBC (Bld) 59.5 % 47-70 [facility] Work Phone: [phone] WBC (Bld) [#/Vol] 5.9 10*3/uL 4.4-11.0 [facility] Work [facility]: Blood erythrocytes count (nu mber/volume)on 05-17-2021 RBC (Bld) [#/Vol] 4.35 10*6/uL 4.6-6.2 [facility] Work [facility]: Blood hemoglobin measurement (mass/volume)on 05-17-2021 Hemoglobin (Bld) [Mass/Vol] 13.4 g/dL 13.0-16.5 [facility] Work Phone: [phone] Blood lymphocytes/100 leukoc yteson 05-17-2021 Lymphocytes/100 WBC (Bld) 26.9 % 19-41 [facility] Work Phone: [phone] Blood monocytes/100 leukocyt eson 05-17-2021 Monocytes/100 WBC (Bld) 11.0 % 0-10 [facility] Work Phone: [phone] Blood platelet mean volumeon 05-17-2021 Platelet mean volume (Bld) [Entitic vol] 11.5 fL 6.2-12.0 [facility] Work Phone: Determination of erythrocyte mean corpuscular volume (MCV)on 05-17-2021 MCV (RBC) [Entitic vol] 92.9 fL 80-94 [facility] Work Phone: Hematocrit Auto (Bld) [Volum e fraction]on 05-17-2021 Hematocrit (Bld) [Volume fraction] 40.4 % 40-54 [facility] Work Phone: Laboratory - Hematology and Cell countson 05-17-2021 Erythrocyte distribution width (RBC) [Entitic vol] 43.4 fL 35.1-43.9 [facility] Work Phone: Erythrocyte distribution width (RBC) [Ratio] 12.7 % 11.6-14.6 [facility] Work Phone: Immature granulocytes/100 WBC (Bld) 0.200 % 0.0-0.9 [facility] Work Phone: Comment on above: IG% - Immature Granu locytes (promyelocytes, myelocytes and metamyelocytes) > 1% indicates that a LEFT SHIFT is Present. MCH (RBC) [Entitic mass] 30.8 pg 27.0-32.0 [facility] Work Phone: Nucleated RBC/100 WBC (Bld) [Ratio] 0 % 0-5 [facility] Work Phone: MCHC Auto (RBC) [Mass/Vol]on 05-17-2021 MCHC (RBC) [Mass/Vol] 33.2 g/dL 32-36 [facility] Work Phone: Platelets bldon 05-17-2021 Platelets (Bld) [#/Vol] 171 10*3/uL 150-450 [facility] Work Phone: ED Provider Noteon ED Provider Note Emergency Department Encounter [facility] ED Patient: Kathya Hooper : 1955 Date of Evaluation: 05/15/2021 ED Supervising Physician: Timothy Burton, This patient was seen during a global [...] [employer] Timothy Burton DO 05/15/21 1530 [facility] ED Provider Note [facility] ED eMERGENCY dEPARTMENT eNCOUnter Pt Name: [...] of [place] (more content not included)... Normal [facility] Basophil percentageon 2021 Chloride [Moles/Vol] 105 mmol/L 98-107 [facility] Work Phone: [phone] Glucose [Mass/Vol] 96 mg/dL 74-106 [facility] Work Phone: Potassium [Moles/Vol] 3.5 mmol/L 3.5-5.1 [facility] Work Phone: [phone] Sodium [Moles/Vol] 141 mmol/L 136-145 [facility] Work Phone: Laboratory - Chemistry and C hemistry - challengeon 05-14-2021 CO2 [Moles/Vol] 30.0 mmol/L 21.0-32.0 [facility] Work Phone: Urea nitrogen/Creatinine [Mass ratio] 39.2 mg/mg 10-20 [facility] Work Phone: No Panel Informationon 05-14 Estimated GFR (MDRD) Amer 210 mL/min >60 [facility] Work Phone: Comment on above: GFR Calc Estimated GFR (MDRD) Non-Af Amer 174 mL/min >60 [facility] Work Phone: Comment on above: Non- GFR Calc Serum or plasma calcium gordy urement (mass/volume)on 05-14-2021 Calcium [Mass/Vol] 8.4 mg/dL 8.5-10.1 [facility] Work Phone: Serum or plasma creatinine m easurement (mass/volume)on 05-14-2021 Creatinine [Mass/Vol] 0.51 mg/dL 0.70-1.30 [facility] Work Phone: Comment on above: The validity of the calculated GFR & GFRAA in patients over 70 years has not been determined. Clinical correlation is essential. Serum or plasma urea nitroge n measurement (mass/volume)on 05-14-2021 Urea nitrogen [Mass/Vol] 20 mg/dL 7-18 [facility] Work Phone: Thin prep Papanicolaou smear with manual screeningon 05-14-2021 Thin prep Papanicolaou smear with manual screening 6 5-15 [facility] Work Phone: Absolute lymphocyte counton 05-10-2021 Lymphocytes Auto (Unsp spec) [#/Vol] 1.65 10*3/uL 0.83-4.51 [facility] Work Phone: Basophil percentageon 2021 Basophils/100 WBC (Bld) 0.5 % 0-1 [facility] Work Phone: Eosinophils/100 WBC (Bld) 0.7 % 0-5 [facility] Work Phone: Neutrophils (Bld) [#/Vol] 5.6 10*3/uL 2.0-7.7 [facility] Work Phone: Neutrophils/100 WBC (Bld) 69.5 % 47-70 [facility] Work Phone: WBC (Bld) [#/Vol] 8.1 10*3/uL 4.4-11.0 [facility] Work Phone: Blood erythrocytes count (nu mber/volume)on 05-10-2021 RBC (Bld) [#/Vol] 4.52 10*6/uL 4.6-6.2 [facility] Work [facility]: Blood hemoglobin measurement (mass/volume)on 05-10-2021 Hemoglobin (Bld) [Mass/Vol] 13.8 g/dL 13.0-16.5 [facility] Work Phone: Blood lymphocytes/100 leukoc yteson 05-10-2021 Lymphocytes/100 WBC (Bld) 20.4 % 19-41 [facility] Work Phone: [phone] Blood monocytes/100 leukocyt eson 05-10-2021 Monocytes/100 WBC (Bld) 8.4 % 0-10 [facility] Work Phone: Blood platelet mean volumeon 05-10-2021 Platelet mean volume (Bld) [Entitic vol] 11.3 fL 6.2-12.0 [facility] Work Phone: Determination of erythrocyte mean corpuscular volume (MCV)on 05-10-2021 MCV (RBC) [Entitic vol] 91.8 fL 80-94 [facility] Work Phone: Hematocrit Auto (Bld) [Volum e fraction]on 05-10-2021 Hematocrit (Bld) [Volume fraction] 41.5 % 40-54 [facility] Work Phone: Laboratory - Hematology and Cell countson 05-10-2021 Erythrocyte distribution width (RBC) [Entitic vol] 42.9 fL 35.1-43.9 [facility] Work Phone: [phone] Erythrocyte distribution width (RBC) [Ratio] 12.8 % 11.6-14.6 [facility] Work Phone: [phone] Immature granulocytes/100 WBC (Bld) 0.500 % 0.0-0.9 [facility] Work Phone: Comment on above: IG% - Immature Granu locytes (promyelocytes, myelocytes and metamyelocytes) > 1% indicates that a LEFT SHIFT is Present. MCH (RBC) [Entitic mass] 30.5 pg 27.0-32.0 [facility] Work Phone: Nucleated RBC/100 WBC (Bld) [Ratio] 0 % 0-5 [facility] Work Phone: MCHC Auto (RBC) [Mass/Vol]on 05-10-2021 MCHC (RBC) [Mass/Vol] 33.3 g/dL 32-36 [facility] Work Phone: [phone] Platelets bldon 05-10-2021 Platelets (Bld) [#/Vol] 191 10*3/uL 150-450 [facility] Work Phone: Absolute lymphocyte counton 05-03-2021 Lymphocytes Auto (Unsp spec) [#/Vol] 1.69 10*3/uL 0.83-4.51 [facility] Work Phone: Basophil percentageon 2021 Basophils/100 WBC (Bld) 0.6 % 0-1 [facility] Work Phone: Eosinophils/100 WBC (Bld) 0.7 % 0-5 [facility] Work Phone: Neutrophils (Bld) [#/Vol] 4.6 10*3/uL 2.0-7.7 [facility] Work Phone: Neutrophils/100 WBC (Bld) 64.4 % 47-70 [facility] Work Phone: WBC (Bld) [#/Vol] 7.2 10*3/uL 4.4-11.0 [facility] Work Phone: Blood erythrocytes count (nu mber/volume)on 05-03-2021 RBC (Bld) [#/Vol] 4.55 10*6/uL 4.6-6.2 [facility] Work [facility]: Blood hemoglobin measurement (mass/volume)on 05-03-2021 Hemoglobin (Bld) [Mass/Vol] 14.0 g/dL 13.0-16.5 [facility] Work Phone: Blood lymphocytes/100 leukoc yteson 05-03-2021 Lymphocytes/100 WBC (Bld) 23.6 % 19-41 [facility] Work Phone: Blood monocytes/100 leukocyt eson 05-03-2021 Monocytes/100 WBC (Bld) 10.3 % 0-10 [facility] Work Phone: Blood platelet mean volumeon 05-03-2021 Platelet mean volume (Bld) [Entitic vol] 11.7 fL 6.2-12.0 [facility] Work Phone: Determination of erythrocyte mean corpuscular volume (MCV)on 05-03-2021 MCV (RBC) [Entitic vol] 93.2 fL 80-94 [facility] Work Phone: Hematocrit Auto (Bld) [Volum e fraction]on 05-03-2021 Hematocrit (Bld) [Volume fraction] 42.4 % 40-54 [facility] Work Phone: Laboratory - Hematology and Cell countson 05-03-2021 Erythrocyte distribution width (RBC) [Entitic vol] 44.2 fL 35.1-43.9 [facility] Work Phone: Erythrocyte distribution width (RBC) [Ratio] 13.1 % 11.6-14.6 [facility] Work Phone: [phone] Immature granulocytes/100 WBC (Bld) 0.400 % 0.0-0.9 [facility] Work Phone: Comment on above: IG% - Immature Granu locytes (promyelocytes, myelocytes and metamyelocytes) > 1% indicates that a LEFT SHIFT is Present. MCH (RBC) [Entitic mass] 30.8 pg 27.0-32.0 [facility] Work Phone: [phone] Nucleated RBC/100 WBC (Bld) [Ratio] 0 % 0-5 [facility] Work Phone: [phone] MCHC Auto (RBC) [Mass/Vol]on 05-03-2021 MCHC (RBC) [Mass/Vol] 33.0 g/dL 32-36 [facility] Work Phone: [phone] Platelets bldon 05-03-2021 Platelets (Bld) [#/Vol] 175 10*3/uL 150-450 [facility] Work Phone: [phone] Absolute lymphocyte counton 04-26-2021 Lymphocytes Auto (Unsp spec) [#/Vol] 1.68 10*3/uL 0.83-4.51 [facility] Work Phone: [phone] Basophil percentageon 2020 Eosinophils/100 WBC (Bld) 1.1 % 0-5 [facility] Work Phone: [phone] Neutrophils (Bld) [#/Vol] 4.5 10*3/uL 2.0-7.7 [facility] Work Phone: WBC (Bld) [#/Vol] 7.2 10*3/uL 4.4-11.0 [facility] Work Phone: [phone] Blood erythrocytes count (nu mber/volume)on 04-26-2021 RBC (Bld) [#/Vol] 4.32 10*6/uL 4.6-6.2 [facility] Work Phone: [phone] Blood hemoglobin measurement (mass/volume)on 04-26-2021 Hemoglobin (Bld) [Mass/Vol] 13.5 g/dL 13.0-16.5 [facility] Work Phone: Blood lymphocytes/100 leukoc yteson 04-26-2021 Lymphocytes/100 WBC (Bld) 23.5 % 19-41 [facility] Work Phone: Blood monocytes/100 leukocyt eson 04-26-2021 Monocytes/100 WBC (Bld) 11.0 % 0-10 [facility] Work Phone: Blood platelet mean volumeon 04-26-2021 Platelet mean volume (Bld) [Entitic vol] 11.0 fL 6.2-12.0 [facility] Work Phone: Determination of erythrocyte mean corpuscular volume (MCV)on 04-26-2021 MCV (RBC) [Entitic vol] 93.3 fL 80-94 [facility] Work Phone: Hematocrit Auto (Bld) [Volum e fraction]on 04-26-2021 Hematocrit (Bld) [Volume fraction] 40.3 % 40-54 [facility] Work Phone: Laboratory - Hematology and Cell countson 04-26-2021 Basophils/100 WBC (Unsp spec) 0.6 % 0-1 [facility] Work Phone: Erythrocyte distribution width (RBC) [Entitic vol] 45.8 fL 35.1-43.9 [facility] Work Phone: Erythrocyte distribution width (RBC) [Ratio] 13.2 % 11.6-14.6 [facility] Work Phone: Immature granulocytes/100 WBC (Bld) 0.600 % 0.0-0.9 [facility] Work Phone: Comment on above: IG% - Immature Granu locytes (promyelocytes, myelocytes and metamyelocytes) > 1% indicates that a LEFT SHIFT is Present. MCH (RBC) [Entitic mass] 31.3 pg 27.0-32.0 [facility] Work Phone: Neutrophils/100 WBC (Bld) 63.2 % 47-70 [facility] Work Phone: Nucleated RBC/100 WBC (Bld) [Ratio] 0 % 0-5 [facility] Work Phone: MCHC Auto (RBC) [Mass/Vol]on 04-26-2021 MCHC (RBC) [Mass/Vol] 33.5 g/dL 32-36 [facility] Work Phone: Platelets bldon 04-26-2021 Platelets (Bld) [#/Vol] 172 10*3/uL 150-450 [facility] Work Phone: Absolute lymphocyte counton 04-19-2021 Lymphocytes Auto (Unsp spec) [#/Vol] 1.31 10*3/uL 0.83-4.51 [facility] Work Phone: Basophil percentageon 2020 Eosinophils/100 WBC (Bld) 2.8 % 0-5 [facility] Work Phone: Neutrophils (Bld) [#/Vol] 3.0 10*3/uL 2.0-7.7 [facility] Work Phone: WBC (Bld) [#/Vol] 5.0 10*3/uL 4.4-11.0 [facility] Work Phone: [phone] Blood erythrocytes count (nu mber/volume)on 04-19-2021 RBC (Bld) [#/Vol] 4.26 10*6/uL 4.6-6.2 [facility] Work Phone: [phone] Blood hemoglobin measurement (mass/volume)on 04-19-2021 Hemoglobin (Bld) [Mass/Vol] 13.2 g/dL 13.0-16.5 [facility] Work Phone: Blood lymphocytes/100 leukoc yteson 04-19-2021 Lymphocytes/100 WBC (Bld) 26.1 % 19-41 [facility] Work Phone: Blood monocytes/100 leukocyt eson 04-19-2021 Monocytes/100 WBC (Bld) 10.0 % 0-10 [facility] Work Phone: Blood platelet mean volumeon 04-19-2021 Platelet mean volume (Bld) [Entitic vol] 10.9 fL 6.2-12.0 [facility] Work Phone: Determination of erythrocyte mean corpuscular volume (MCV)on 04-19-2021 MCV (RBC) [Entitic vol] 93.7 fL 80-94 [facility] Work Phone: Hematocrit Auto (Bld) [Volum e fraction]on 04-19-2021 Hematocrit (Bld) [Volume fraction] 39.9 % 40-54 [facility] Work Phone: Laboratory - Hematology and Cell countson 04-19-2021 Basophils/100 WBC (Unsp spec) 1.0 % 0-1 [facility] Work Phone: Erythrocyte distribution width (RBC) [Entitic vol] 46.7 fL 35.1-43.9 [facility] Work Phone: Erythrocyte distribution width (RBC) [Ratio] 13.7 % 11.6-14.6 [facility] Work Phone: Immature granulocytes/100 WBC (Bld) 0.400 % 0.0-0.9 [facility] Work Phone: [phone] Comment on above: IG% - Immature Granu locytes (promyelocytes, myelocytes and metamyelocytes) > 1% indicates that a LEFT SHIFT is Present. MCH (RBC) [Entitic mass] 31.0 pg 27.0-32.0 [facility] Work Phone: [phone] Neutrophils/100 WBC (Bld) 59.7 % 47-70 [facility] Work Phone: [phone] Nucleated RBC/100 WBC (Bld) [Ratio] 0 % 0-5 [facility] Work Phone: MCHC Auto (RBC) [Mass/Vol]on 04-19-2021 MCHC (RBC) [Mass/Vol] 33.1 g/dL 32-36 [facility] Work Phone: Platelets bldon 04-19-2021 Platelets (Bld) [#/Vol] 165 10*3/uL 150-450 [facility] Work Phone: Absolute lymphocyte counton 04-12-2021 Lymphocytes Auto (Unsp spec) [#/Vol] 1.41 10*3/uL 0.83-4.51 [facility] Work Phone: Basophil percentageon 2020 Bilirubin [Mass/Vol] 0.40 mg/dL 0.20-1.00 [facility] Work Phone: Comment on above: For patients on eltr ombopag therapy, use of Dimension [place] TBIL is not recommended. Eosinophils/100 WBC (Bld) 0.9 % 0-5 [facility] Work Phone: Neutrophils (Bld) [#/Vol] 3.4 10*3/uL 2.0-7.7 [facility] Work Phone: Protein [Mass/Vol] 5.7 g/dL 6.4-8.2 [facility] Work Phone: WBC (Bld) [#/Vol] 5.5 10*3/uL 4.4-11.0 [facility] Work Phone: Blood erythrocytes count (nu mber/volume)on 04-12-2021 RBC (Bld) [#/Vol] 4.09 10*6/uL 4.6-6.2 [facility] Work Phone: Blood hemoglobin measurement (mass/volume)on 04-12-2021 Hemoglobin (Bld) [Mass/Vol] 12.4 g/dL 13.0-16.5 [facility] Work Phone: Blood lymphocytes/100 leukoc yteson 04-12-2021 Lymphocytes/100 WBC (Bld) 25.9 % 19-41 [facility] Work Phone: Blood monocytes/100 leukocyt eson 04-12-2021 Monocytes/100 WBC (Bld) 9.2 % 0-10 [facility] Work Phone: Blood platelet mean volumeon 04-12-2021 Platelet mean volume (Bld) [Entitic vol] 11.1 fL 6.2-12.0 [facility] Work Phone: Determination of erythrocyte mean corpuscular volume (MCV)on 04-12-2021 MCV (RBC) [Entitic vol] 93.4 fL 80-94 [facility] Work Phone: Direct bilirubinon Bilirubin.direct [Mass/Vol] 0.08 mg/dL 0.00-0.30 [facility] Work Phone: Hematocrit Auto (Bld) [Volum e fraction]on 04-12-2021 Hematocrit (Bld) [Volume fraction] 38.2 % 40-54 [facility] Work Phone: Laboratory - Chemistry and C hemistry - challengeon 04-12-2021 ALP [Catalytic activity/Vol] 101 U/L 45-117 [facility] Work Phone: ALT [Catalytic activity/Vol] 30 U/L 16-61 [facility] Work Phone: Globulin (S) [Mass/Vol] 2.9 g/dL 2.2-4.2 [facility] Work Phone: Laboratory - Hematology and Cell countson 04-12-2021 Basophils/100 WBC (Unsp spec) 0.6 % 0-1 [facility] Work Phone: Erythrocyte distribution width (RBC) [Entitic vol] 46.7 fL 35.1-43.9 [facility] Work Phone: Erythrocyte distribution width (RBC) [Ratio] 13.7 % 11.6-14.6 [facility] Work Phone: Immature granulocytes/100 WBC (Bld) 0.400 % 0.0-0.9 [facility] Work Phone: Comment on above: IG% - Immature Granu locytes (promyelocytes, myelocytes and metamyelocytes) > 1% indicates that a LEFT SHIFT is Present. MCH (RBC) [Entitic mass] 30.3 pg 27.0-32.0 [facility] Work Phone: Neutrophils/100 WBC (Bld) 63.0 % 47-70 [facility] Work Phone: Nucleated RBC/100 WBC (Bld) [Ratio] 0 % 0-5 [facility] Work Phone: MCHC Auto (RBC) [Mass/Vol]on 04-12-2021 MCHC (RBC) [Mass/Vol] 32.5 g/dL 32-36 [facility] Work [facility]: Platelets bldon 04-12-2021 Platelets (Bld) [#/Vol] 173 10*3/uL 150-450 [facility] Work Phone: Serum or plasma albumin gordy urement (mass/volume)on 04-12-2021 Albumin [Mass/Vol] 2.8 g/dL 3.2-5.0 [facility] Work Phone: Thin prep Papanicolaou smear with manual screeningon 04-12-2021 Thin prep Papanicolaou smear with manual screening 15 U/L 15-37 [facility] Work Phone: Absolute lymphocyte counton 04-07-2021 Lymphocytes Auto (Unsp spec) [#/Vol] 1.55 10*3/uL 0.83-4.51 [facility] Work Phone: Basophil percentageon 2020 Eosinophils/100 WBC (Bld) 0.7 % 0-5 [facility] Work Phone: Neutrophils (Bld) [#/Vol] 5.3 10*3/uL 2.0-7.7 [facility] Work Phone: WBC (Bld) [#/Vol] 8.1 10*3/uL 4.4-11.0 [facility]: Blood erythrocytes count (nu mber/volume)on 04-07-2021 RBC (Bld) [#/Vol] 4.18 10*6/uL 4.6-6.2 [facility] Work Phone: Blood hemoglobin measurement (mass/volume)on 04-07-2021 Hemoglobin (Bld) [Mass/Vol] 12.9 g/dL 13.0-16.5 [facility] Work Phone: Blood lymphocytes/100 leukoc yteson 04-07-2021 Lymphocytes/100 WBC (Bld) 19.2 % 19-41 [facility] Work Phone: Blood monocytes/100 leukocyt eson 04-07-2021 Monocytes/100 WBC (Bld) 13.0 % 0-10 [facility] Work Phone: Blood platelet mean volumeon 04-07-2021 Platelet mean volume (Bld) [Entitic vol] 10.9 fL 6.2-12.0 [facility] Work Phone: Determination of erythrocyte mean corpuscular volume (MCV)on 04-07-2021 MCV (RBC) [Entitic vol] 92.6 fL 80-94 [facility] Work Phone: Hematocrit Auto (Bld) [Volum e fraction]on 04-07-2021 Hematocrit (Bld) [Volume fraction] 38.7 % 40-54 [facility] Work Phone: Laboratory - Hematology and Cell countson 04-07-2021 Basophils/100 WBC (Unsp spec) 0.6 % 0-1 [facility] Work Phone: Erythrocyte distribution width (RBC) [Entitic vol] 45.8 fL 35.1-43.9 [facility] Work Phone: Erythrocyte distribution width (RBC) [Ratio] 13.5 % 11.6-14.6 [facility] Work Phone: Immature granulocytes/100 WBC (Bld) 0.500 % 0.0-0.9 [facility] Work Phone: [phone] Comment on above: IG% - Immature Granu locytes (promyelocytes, myelocytes and metamyelocytes) > 1% indicates that a LEFT SHIFT is Present. MCH (RBC) [Entitic mass] 30.9 pg 27.0-32.0 [facility] Work Phone: Neutrophils/100 WBC (Bld) 66.0 % 47-70 [facility] Work Phone: Nucleated RBC/100 WBC (Bld) [Ratio] 0 % 0-5 [facility] Work Phone: MCHC Auto (RBC) [Mass/Vol]on 04-07-2021 MCHC (RBC) [Mass/Vol] 33.3 g/dL 32-36 [facility] Work Phone: Platelets bldon 04-07-2021 Platelets (Bld) [#/Vol] 210 10*3/uL 150-450 [facility] Work Phone: CULTURE BLOODon 03-25-2021 Microscopic examination of blood, culture CULTURE BLOOD --> Status: F No growth at 5 days. Normal [facility] Comment on above: Performed By: #### C /BLD ####[employer] [address] [place] [address] CULTURE BLOOD (Two)on 2020 Microscopic examination of blood, culture CULTURE BLOOD (Two) --> Status: F No growth at [address] [facility] Comment on above: Performed By: #### C /BLT ####[facility] [place] [address] Basic Metabolic Panelon 11-2 Calcium [Mass/Vol] 8.8 mg/dL Normal 8.4-10.4 [facility] Comment on above: Performed By: #### H EMDF, BMP3 #### [facility] [address] [place] [address] Glucose [Mass/Vol] 103 mg/dL High 70-100 [facility] Comment on above: Performed By: #### H EMDF, BMP3 #### [facility] [address] [place] [address] Anion gap [Moles/Vol] 5 mmol/L Normal 3-13 [facility] Comment on above: Performed By: #### H EMDF, BMP3 #### [facility] [address] [place] [address] CO2 [Moles/Vol] 26 mmol/L Normal 22-30 [facility] Comment on above: Performed By: #### H EMDF, BMP3 #### [facility] [address] [place] [address] Creatinine [Mass/Vol] 0.49 mg/dL Low 0.52-1.25 [facility] Comment on above: Performed By: #### H EMDF, BMP3 #### [facility] [address] [place] [address] eGFR OTHER > 90.0 Normal >60 [facility] Comment on above: Result Comment: KDIG [...] Performed By: #### H EMDF, BMP3 #### [facility] [address] [place] [address] GFR/1.73 sq M.predicted among blacks MDRD (S/P/Bld) [Vol rate/Area] mL/min/{1.73_m2} Normal >60 [facility] Comment on above: Performed By: #### H MAYKEL, BMP3 #### [facility] [address] [place] [address] Urea nitrogen [Mass/Vol] 30 mg/dL High 7-17 [facility] Comment on above: Performed By: #### H MAYKEL, BMP3 #### [facility] [address] [place] [address] Chloride [Moles/Vol] 112 mmol/L High 98-107 [facility] Comment on above: Performed By: #### H MAYKEL BMP3 #### [facility] [address] [place] [address] Potassium [Moles/Vol] 4.1 mmol/L Normal 3.5-5.1 [facility] Comment on above: Performed By: #### H MAYKEL, BMP3 #### [facility] [address] [place] [address] Sodium [Moles/Vol] 142 mmol/L Normal 135-145 [facility] Comment on above: Performed By: #### H MAYKEL, BMP3 #### [facility] [address] [place] [address] Anion gap [Moles/Vol] 5 mmol/L 3 - 13 mmol/L [facility] Work Phone: Calcium [Mass/Vol] 8.8 mg/dL 8.4 - 10. 4 mg/dL [facility] Work Phone: Chloride [Moles/Vol] 112 mmol/L High 98 - 10 7 mmol/L [facility] Work Phone: CO2 [Moles/Vol] 26 mmol/L 22 - 30 mmol/L [facility] Work Phone: Creatinine [Mass/Vol] 0.49 mg/dL Low 0.52 - 1.25 mg/dL [facility] Work Phone: EGFR IF NonAfrican Sudanese >90.0 >60 mL/min [facility] Work Phone: Comment on above: KDIGO [...] MDRD (S/P/Bld) [Vol rate/Area] mL/min/{1.73_m2} >60 mL/min [facility] Work Phone: Glucose [Mass/Vol] 103 mg/dL High 70 - 100 mg/dL [facility] Work Phone: Interpretation and review of laboratory results Abnormal [facility] Work Phone: Potassium [Moles/Vol] 4.1 mmol/L 3.5 - 5.1 mmol/L [facility] Work Phone: Sodium [Moles/Vol] 142 mmol/L 135 - 145 mmol/L [facility] Work Phone: Urea nitrogen (BldV) [Mass/Vol] 30 mg/dL High 7 - 17 mg/dL [facility] Work Phone: Test Performed by [facility], [address] [place], [place] [id number] [place] [address] [facility] Work Phone: CBC Auto Differentialon 11-2 Hematocrit (Bld) [Volume fraction] 35.0 % Low 40.0 - 52.0 % [facility] Work Phone: Hemoglobin.gastrointest inal spec 1 Ql (Stl) 11.7 g/dL Low 13.0 - 18.0 g/dL [facility] Work Phone: Interpretation and review of laboratory results Abnormal [facility] Work Phone: MCH (RBC) [Entitic mass] 31.0 pg 26.0 - 34.0 pg [facility] Work Phone: MCHC (RBC) [Mass/Vol] 33.4 % 32.0 - 36.0 % [facility] Work Phone: MCV (RBC) [Entitic vol] 92.7 fL 80.0 - 98.0 fL [facility] Work Phone: Platelet distribution width (Bld) [Ratio] 13.4 % 11.5 - 14.5 % [facility] Work Phone: Platelet mean volume (Bld) [Entitic vol] 8.6 fL 7.4 - 10.4 fL [facility] Work Phone: Platelets (Bld) [#/Vol] 236 10*3/uL 140 - 440 10*3/uL [facility] Work Phone: RBC (Bld) [#/Vol] 3.77 10*6/uL Low 4.40 - 5.9 0 10*6/uL [facility] Work Phone: WBC (Bld) [#/Vol] 12.8 10*3/uL High 3.6 - 10.7 10*3/uL [facility] Work Phone: Test Performed by [employer], [address], [place], [place] [id number] [place] [address] [facility] Work Phone: Glucose,Bedsideon 03-24-2021 Glucose [Mass/Vol] 93 mg/dL Normal 70-100 [facility] Comment on above: Result Comment: Test performed by glucose meter. Results may be 10%-15% lower than serum/plasma values. (CLIA ID [id number]) Performed By: #### H ALCIRA, BMP3 #### [facility] [address] [place] [address] Glucose [Mass/Vol] 166 mg/dL High 70-100 [facility] Comment on above: Result Comment: Test performed by glucose meter. Results may be 10%-15% lower than serum/plasma values. (CLIA ID [id number]) Performed By: #### B GLU ####[facility] [place] [address] Hemogram w/ Autodiffon 03-24 Erythrocyte distribution width (RBC) [Ratio] 13.4 % Normal 11.5-14.5 [facility] Comment on above: Performed By: #### H EMDF, BMP3 #### [facility] [address] [place] [address] Hematocrit (Bld) [Volume fraction] 35.0 % Low 40.0-52.0 [facility] Comment on above: Performed By: #### H EMDF, BMP3 #### [facility] [address] [place] [address] Hemoglobin (Bld) [Mass/Vol] 11.7 g/dL Low 13.0-18.0 [facility] Comment on above: Performed By: #### H EMDF, BMP3 #### [facility] [address] [place] [address] MCH (RBC) [Entitic mass] 31.0 pg Normal 26.0-34.0 [facility] Comment on above: Performed By: #### H EMDF, BMP3 #### [facility] [address] [place] [address] MCHC 33.4 % Normal 32.0-36.0 [facility] Comment on above: Performed By: #### H EMDF, BMP3 #### [facility] [address] [place] [address] MCV (RBC) [Entitic vol] 92.7 fL Normal 80.0-98.0 [facility] Comment on above: Performed By: #### H EMDF, BMP3 #### [facility] [address] [place] [address] Platelet mean volume (Bld) [Entitic vol] 8.6 fL Normal 7.4-10.4 [facility] Comment on above: Performed By: #### H EMDF, BMP3 #### [facility] [address] [place] [address] Platelets (Bld) [#/Vol] 236 10*3/uL Normal 140-440 [facility] Comment on above: Performed By: #### H EMDF, BMP3 #### [facility] [address] [place] [address] RBC (Bld) [#/Vol] 3.77 10*6/uL Low 4.40-5.90 [facility] Comment on above: Performed By: #### H EMDF, BMP3 #### [facility] [address] [place] [address] WBC (Bld) [#/Vol] 12.8 10*3/uL High 3.6-10.7 [facility] Comment on above: Performed By: #### H EMDF, BMP3 #### [facility] [address] [place] [address] Manual Diffon 03-24-2021 Abs Lymph Cnt 1.7 10*3/uL Normal 1.1-4.5 [facility] Comment on above: Performed By: #### H EMDF, BMP3 #### [facility] [address] [place] [address] Abs Monocyte Cnt 0.8 10*3/uL Normal 0.2-1.1 [facility] Comment on above: Performed By: #### H EMDF, BMP3 #### [facility] [address] [place] [address] Abs Neutrophile Cnt 10.1 10*3/uL High 2.2-8.2 [facility] Comment on above: Performed By: #### H EMDF, BMP3 #### [facility] [address] [place] [address] Anisocytosis Slight Normal [facility] Comment on above: Performed By: #### H EMDF, BMP3 #### [facility] [address] [place] [address] Atypical Lymphocytes 2 % Abnormal <1 [facility] Comment on above: Performed By: #### H EMDF, BMP3 #### [facility] [address] [place] [address] Abdoul Cells Slight Normal [facility] Comment on above: Performed By: #### H EMDF, BMP3 #### [facility] [address] [place] [address] Lymphocytes 11 % Low 20-40 [facility] Comment on above: Performed By: #### H EMDF, BMP3 #### [facility] [address] [place] [address] Monocytes 6 % Normal 2-10 [facility] Comment on above: Performed By: #### H EMDF, BMP3 #### [facility] [address] [place] [address] Myelocytes 2 % Abnormal <1 [facility] Comment on above: Performed By: #### H EMDF, BMP3 #### [facility] [address] [place] [address] Ovalocytes Slight Normal [facility] Comment on above: Performed By: #### H EMDF, BMP3 #### [facility] [address] [place] [address] Poikilocytosis Slight Normal [facility] Comment on above: Performed By: #### H EMDF, BMP3 #### [facility] [address] [place] [address] Polychromasia Slight Normal [facility] Comment on above: Performed By: #### H EMDF, BMP3 #### [facility] [address] [place] [address] RBC Morphology ABNORMAL Normal [facility] Comment on above: Performed By: #### H EMDF, BMP3 #### [facility] [address] [place] [address] Seg Neutrophils 79 % Normal 40-[address] [facility] Comment on above: Performed By: #### H EMDF, BMP3 #### [facility] [address] [place] [address] Tear Drop Forms Slight Normal [facility] Comment on above: Performed By: #### H EMDF, BMP3 #### [facility] [address] [place] [address] Abs Baso Cnt 0.0 10*3/uL Normal 0.0-0.2 [facility] Comment on above: Performed By: #### H EMDF, BMP3 #### [facility] [address] [place] [address] Abs Eosin Cnt 0.0 10*3/uL Normal 0.0-0.5 [facility] Comment on above: Performed By: #### H EMDF, BMP3 #### [facility] [address] [place] [address] Bands 0 % Normal 0-3 [facility] Comment on above: Performed By: #### H EMDF, BMP3 #### [facility] [address] [place] [address] Basophils 0 % Normal 0-2 [facility] Comment on above: Performed By: #### H EMDF, BMP3 #### [facility] [address] [place] [address] Cells counted 100 Normal [facility] Comment on above: Performed By: #### H EMDF, BMP3 #### [facility] [address] [place] [address] Eosinophils 0 % Low 1-6 [facility] Comment on above: Performed By: #### H EMDF, BMP3 #### [facility] [address] [place] [address] Manual Differentialon 2020 Absolute Baso # 0.0 10*3/uL 0.0 - 0.2 10*3/uL [facility] Work Phone: Absolute Eos # 0.0 10*3/uL 0.0 - 0.5 10*3/uL [facility] Work Phone: Absolute Lymph # 1.7 10*3/uL 1.1 - 4.5 10*3/uL [facility] Work Phone: Absolute Dickinson # 0.8 10*3/uL 0.2 - 1.1 10*3/uL [facility] Work Phone: Absolute Neut # 10.1 10*3/uL High 2.2 - 8.2 10*3/uL [facility] Work Phone: Anisocytosis Slight [facility] Work Phone: Atypical Lymphocytes 2 % Abnormal <1 [facility] Work Phone: Bands 0 % 0 - 3 % [facility] Work Phone: Basophils/100 WBC (Bld) 0 % 0 - 2 % [facility] Work Phone: Leighton Cells Slight [facility] Work Phone: Eosinophils/100 WBC (Bld) 0 % Low 1 - 6 % [facility] Work Phone: Interpretation and review of laboratory results Abnormal [facility] Work Phone: Lymphocytes/100 WBC (Bld) 11 % Low 20 - 40 % [facility] Work Phone: Monocytes/100 WBC (Bld) 6 % 2 - 10 % [facility] Work Phone: Myelocytes 2 % Abnormal <1 [facility] Work Phone: Ovalocytes Slight [facility] Work Phone: Poikilocytes Slight [facility] Work Phone: Polychromasia Slight [facility] Work Phone: RBC (Bld) [#/Vol] ABNORMAL [facility] Work Phone: Seg Neutrophils 79 % 40 - 80 % [facility] Work Phone: Tear Drop Cells Slight [facility] Work Phone: TOTAL CELLS COUNTED 100 [facility] Work Phone: Test Performed by [employer] [facility], [address] [place], [place] [address] [facility] Work Phone: POCT Glucoseon 03-24-2021 Glucose [Mass/Vol] 93 mg/dL 70 - 100 mg/dL [facility] Work Phone: Comment on above: Test performed by gl ucose meter. Results may be 10%-15% lower than serum/plasma values. (CLIA ID [id number]) Test Performed by [facility], [address] [place] [address] [facility] Work Phone: Basic Metabolic Panelon 11 Calcium [Mass/Vol] 8.8 mg/dL Normal 8.4-10.4 [facility] Comment on above: Performed By: #### H EMDF, BMP3 #### [facility] [address] [place] [address] Glucose [Mass/Vol] 143 mg/dL High 70-100 [facility] Comment on above: Performed By: #### H EMDF, BMP3 #### [facility] [address] [place] [address] Anion gap [Moles/Vol] 8 mmol/L Normal 3-13 [facility] Comment on above: Performed By: #### H EMDF, BMP3 #### [facility] [address] [place] [address] CO2 [Moles/Vol] 24 mmol/L Normal 22-30 [facility] Comment on above: Performed By: #### H EMDF, BMP3 #### [facility] [address] [place] [address] Creatinine [Mass/Vol] 0.47 mg/dL Low 0.52-1.25 [facility] Comment on above: Performed By: #### H EMDF, BMP3 #### [facility] [address] [place] [address] eGFR OTHER > 90.0 Normal >60 [facility] Comment on above: Result Comment: KDIG [...] Performed By: #### Kerri BRAR BMP3 #### [facility] [address] [place] [address] GFR/1.73 sq M.predicted among blacks MDRD (S/P/Bld) [Vol rate/Area] mL/min/{1.73_m2} Normal >60 [facility] Comment on above: Performed By: #### H MAYKEL BMP3 #### [facility] [address] [place] [address] Urea nitrogen [Mass/Vol] 32 mg/dL High 7-17 [facility] Comment on above: Performed By: #### Kerri BRAR BMP3 #### [facility] [address] [place] [address] Chloride [Moles/Vol] 110 mmol/L High 98-107 [facility] Comment on above: Performed By: #### H MAYKEL BMP3 #### [facility] [address] [place] [address] Potassium [Moles/Vol] 3.9 mmol/L Normal 3.5-5.1 [facility] Comment on above: Performed By: #### H MAYKEL BMP3 #### [facility] [address] [place] [address] Sodium [Moles/Vol] 142 mmol/L Normal 135-145 [facility] Comment on above: Performed By: #### Kerri BRAR BMP3 #### [facility] [address] [place] [address] Anion gap [Moles/Vol] 8 mmol/L 3 - 13 mmol/L [facility] Work Phone: [phone] Calcium [Mass/Vol] 8.8 mg/dL 8.4 - 10. 4 mg/dL [facility] Work Phone: [phone] Chloride [Moles/Vol] 110 mmol/L High 98 - 10 7 mmol/L [facility] Work Phone: CO2 [Moles/Vol] 24 mmol/L 22 - 30 mmol/L [facility] Work Phone: Creatinine [Mass/Vol] 0.47 mg/dL Low 0.52 - 1.25 mg/dL [facility] Work Phone: EGFR IF NonAfrican Sudanese >90.0 >60 mL/min [facility] Work Phone: Comment on above: KDIGO guidelines [...] MDRD (S/P/Bld) [Vol rate/Area] mL/min/{1.73_m2} >60 mL/min [facility] Work Phone: Glucose [Mass/Vol] 143 mg/dL High 70 - 100 mg/dL [facility] Work Phone: Interpretation and review of laboratory results Abnormal [facility] Work Phone: Potassium [Moles/Vol] 3.9 mmol/L 3.5 - 5.1 mmol/L [facility] Work Phone: Sodium [Moles/Vol] 142 mmol/L 135 - 145 mmol/L [facility] Work Phone: Urea nitrogen (BldV) [Mass/Vol] 32 mg/dL High 7 - 17 mg/dL [facility] Work Phone: Test Performed by [facility], [address] [place], [place] [id number] [place] [address] LAB [facility] Work Phone: CBC Auto Differentialon 11-2 Absolute [...] 36.5 % Low 40.0 - 52.0 % [facility] Work Phone: Hemoglobin.gastrointest inal spec 1 Ql (Stl) 12.4 g/dL Low 13.0 - 18.0 g/dL [facility] Work Phone: Interpretation and review of laboratory results Abnormal [facility] Work Phone: Lymphocytes (Bld) [#/Vol] 0.7 10*3/uL Low 1.0 - 4.3 10*3/uL [facility] Work Phone: Lymphocytes/100 WBC (Bld) 4.8 % Low 20.0 - 40.0 % [facility] Work Phone: MCH (RBC) [Entitic mass] 31.3 pg 26.0 - 34.0 pg [facility] Work Phone: MCHC (RBC) [Mass/Vol] 34.1 % 32.0 - 36.0 % [facility] Work Phone: MCV (RBC) [Entitic vol] 92.0 fL 80.0 - 98.0 fL [facility] Work Phone: Monocytes (Bld) [#/Vol] 0.8 10*3/uL 0.0 - 0.8 10*3/uL [facility] Work Phone: Monocytes/100 WBC (Bld) 5.4 % 2.0 - 10.0 % [facility] Work Phone: Platelet distribution width (Bld) [Ratio] 13.2 % 11.5 - 14.5 % [facility] Work Phone: Platelet mean volume (Bld) [Entitic vol] 9.0 fL 7.4 - 10.4 fL [facility] Work Phone: Platelets (Bld) [#/Vol] 211 10*3/uL 140 - 440 10*3/uL [facility] Work Phone: RBC (Bld) [#/Vol] 3.96 10*6/uL Low 4.40 - 5.9 0 10*6/uL [facility] Work Phone: WBC (Bld) [#/Vol] 15.1 10*3/uL High 3.6 - 10.7 10*3/uL [facility] Work Phone: Test Performed by [facility], [address] [place], [place], [place] [id number] [place] [address] [facility] Work Phone: Glucose,Bedsideon 03-23-2021 Glucose [Mass/Vol] 122 mg/dL High 70-100 [facility] Comment on above: Result Comment: Test performed by glucose meter. Results may be 10%-15% lower than serum/plasma values. (CLIA ID [id number]) Performed By: #### H EMD, BMP3 #### [facility] [address] [place] [address] Glucose [Mass/Vol] 129 mg/dL High 70-100 [facility] Comment on above: Test performed by gl ucose meter. Results may be 10%-15% lower than serum/plasma values. (CLIA ID [id number]) Result Comment: Test performed by glucose meter. Results may be 10%-15% lower than serum/plasma values. (CLIA ID [id number]) Performed By: #### B GLU ####[facility] [place] [address] Glucose [Mass/Vol] 136 mg/dL High 70-100 [facility] Comment on above: Result Comment: Test performed by glucose meter. Results may be 10%-15% lower than serum/plasma values. (CLIA ID [id number]) Performed By: #### B GLU #### [facility] [address] [place] [address] Hemogram w/ Autodiffon 03-23 Abs Baso Cnt 0.0 10*3/uL Normal 0.0-0.2 [facility] Comment on above: Performed By: #### H MAYKEL BMP3 #### [facility] [address] [place] [address] Abs Neutrophile Cnt 13.5 10*3/uL High 1.8-7.0 [facility] Comment on above: Performed By: #### H MAYKEL BMP3 #### [facility] [address] [place] [address] Basophils/100 WBC (Bld) 0.3 % Normal 0.0-2.0 [facility] Comment on above: Performed By: #### H MAYKEL BMP3 #### [facility] [address] [place] [address] Eosinophils (Bld) [#/Vol] 0.0 10*3/uL Normal 0.0-0.5 [facility] Comment on above: Performed By: #### H EMDF BMP3 #### [facility] [address] [place] [address] Eosinophils/100 WBC (Bld) 0.0 % Low 1.0-6.0 [facility] Comment on above: Performed By: #### H EMDF BMP3 #### [facility] [address] [place] [address] Erythrocyte distribution width (RBC) [Ratio] 13.2 % Normal 11.5-14.5 [facility] Comment on above: Performed By: #### H MAYKEL BMP3 #### [facility] [address] [place] [address] Granulocytes/100 WBC (Bld) 89.5 % High 40.0-80.0 [facility] Comment on above: Performed By: #### H MAYKEL BMP3 #### [facility] [address] [place] [address] Hematocrit (Bld) [Volume fraction] 36.5 % Low 40.0-52.0 [facility] Comment on above: Performed By: #### H MAYKEL BMP3 #### [facility] [address] [place] [address] Hemoglobin (Bld) [Mass/Vol] 12.4 g/dL Low 13.0-18.0 [facility] Comment on above: Performed By: #### H MAYKEL BMP3 #### [facility] [address] [place] [address] Lymphocytes (Bld) [#/Vol] 0.7 10*3/uL Low 1.0-4.3 [facility] Comment on above: Performed By: #### H MAYKEL BMP3 #### [facility] [address] [place] [address] Lymphocytes/100 WBC (Bld) 4.8 % Low 20.0-40.0 [facility] Comment on above: Performed By: #### H MAYKEL BMP3 #### [facility] [address] [place] [address] MCH (RBC) [Entitic mass] 31.3 pg Normal 26.0-34.0 [facility] Comment on above: Performed By: #### H MAYKEL BMP3 #### [facility] [address] [place] [address] MCHC 34.1 % Normal 32.0-36.0 [facility] Comment on above: Performed By: #### H MAYKEL BMP3 #### [facility] [address] [place] [address] MCV (RBC) [Entitic vol] 92.0 fL Normal 80.0-98.0 [facility] Comment on above: Performed By: #### H EMDF, BMP3 #### [facility] [address] [place] [address] Monocytes (Bld) [#/Vol] 0.8 10*3/uL Normal 0.0-0.8 [facility] Comment on above: Performed By: #### H EMDF BMP3 #### [facility] [address] [place] [address] Monocytes/100 WBC (Bld) 5.4 % Normal 2.0-10.0 [facility] Comment on above: Performed By: #### H EMDMaurice BMP3 #### [facility] [address] [place] [address] Platelet mean volume (Bld) [Entitic vol] 9.0 fL Normal 7.4-10.4 [facility] Comment on above: Performed By: #### H ALCIRAF BMP3 #### [facility] [address] [place] [address] Platelets (Bld) [#/Vol] 211 10*3/uL Normal 140-440 [facility] Comment on above: Performed By: #### H MAYKEL BMP3 #### [facility] [address] [place] [address] RBC (Bld) [#/Vol] 3.96 10*6/uL Low 4.40-5.90 [facility] Comment on above: Performed By: #### H EMDF BMP3 #### [facility] [address] [place] [address] WBC (Bld) [#/Vol] 15.1 10*3/uL High 3.6-10.7 [facility] Comment on above: Performed By: #### H EMDF BMP3 #### [facility] [address] [place] [address] No Panel Informationon 03-23 Interpretation and review of laboratory results Abnormal [facility] Work Phone: Test Performed by [facility], [address] [place] [address] [facility] Work Phone: POCT Glucoseon 03-23-2021 Glucose [Mass/Vol] 166 mg/dL High 70 - 100 mg/dL [facility] Comment on above: Test performed by gl ucose meter. Results may be 10%-15% lower than serum/plasma values. (CLIA ID [id number]) Interpretation and review of laboratory results Abnormal [facility] Test Performed by [facility], [address] LAB [facility] Glucose [Mass/Vol] 122 mg/dL High 70 - 100 mg/dL [facility] Work Phone: Comment on above: Test performed by gl ucose meter. Results may be 10%-15% lower than serum/plasma values. (CLIA ID [id number]) Glucose [Mass/Vol] 136 mg/dL High 70 - 100 mg/dL [facility] Comment on above: Test performed by gl ucose meter. Results may be 10%-15% lower than serum/plasma values. (CLIA ID [id number]) Interpretation and review of laboratory results Abnormal [facility] Test Performed by [facility], [address] LAB [facility] CBC Auto Differentialon 03-02 [...] g/dL Low 13.0 - 18.0 g/dL [facility] Interpretation and review of laboratory results Abnormal [...] 13.3 10*3/uL High 3.6 - 10.7 10*3/[facility]L [facility] by [facility], [address] [place], [place] [address] [facility] LAB [facility] Glucose,Bedsideon 03-22-2021 Glucose [Mass/Vol] 134 mg/dL High 70-100 [facility] Comment on above: Result Comment: Test performed by glucose meter. Results may be 10%-15% lower than serum/plasma values. (CLIA ID [id number]) Performed By: #### H [facility], BMP3 #### [facility] [address] [place] [address] Glucose [Mass/Vol] 190 mg/dL High 70-100 [facility] Comment on above: Result Comment: Test performed by glucose meter. Results may be 10%-15% lower than serum/plasma values. (CLIA ID [id number]) Performed By: #### B GLU #### [facility] [address] [place] [address] Glucose [Mass/Vol] 200 mg/dL High 70-100 [facility] Comment on above: Result Comment: Test performed by glucose meter. Results may be 10%-15% lower than serum/plasma values. (CLIA ID [id number]) Performed By: #### B GLU #### [place] [address] [place] [address] Glucose [Mass/Vol] 181 mg/dL High 70-100 [facility] Comment on above: Result Comment: Test performed by glucose meter. Results may be 10%-15% lower than serum/plasma values. (CLIA ID [id number]) Performed By: #### B GLU #### [place] [address] [place] [address] Glucose [Mass/Vol] 186 mg/dL High 70-100 [facility] Comment on above: Result Comment: Test performed by glucose meter. Results may be 10%-15% lower than serum/plasma values. (CLIA ID [id number]) Performed By: #### B GLU #### [place] [address] [place] [address] Hemoglobin A1Con 03-22-2021 Glucose [Mass/Vol] 108 mg/dL Normal [facility] Comment on above: Performed By: #### B GLU #### [place] [address] [place] [address] HbA1c (Bld) [Mass fraction] 5.4 % Normal [facility] Comment on above: Result Comment: Norm al less than 5.7% Prediabetes 5.7% to 6.4% Diabetes 6.5% or higher --HgbA1C levels may not be accurate in patients who have renal disease, received recent blood transfusions, are anemic, or who have dyshemoglobinemia. Performed By: #### B GLU #### [place] [address] [place] [address] HbA1c (Bld) [Mass fraction] 5.4 % [facility] Comment on above: Normal less than 5.7 % Prediabetes 5.7% to 6.4% Diabetes 6.5% or higher --HgbA1C levels may not be accurate in patients who have renal disease, received recent blood transfusions, are anemic, or who have dyshemoglobinemia. Magnesium [Mass/Vol] 108 mg/dL [facility] Test Performed by [facility], [address] [place] [address] [facility] LAB [facility] Hemogram w/ Autodiffon 03-22 Abs Baso Cnt 0.0 10*3/uL Normal 0.0-0.2 [facility] Comment on above: Performed By: #### B GLU #### [facility] [address] [place] [address] Abs Neutrophile Cnt 12.3 10*3/uL High 1.8-7.0 [facility] Comment on above: Performed By: #### B GLU #### [facility] [address] [place] [address] Basophils/100 WBC (Bld) 0.2 % Normal 0.0-2.0 [facility] Comment on above: Performed By: #### B GLU #### [facility] [address] [place] [address] Eosinophils (Bld) [#/Vol] 0.0 10*3/uL Normal 0.0-0.5 [facility] Comment on above: Performed By: #### B GLU #### [facility] [address] [place] [address] Eosinophils/100 WBC (Bld) 0.0 % Low 1.0-6.0 [facility] Comment on above: Performed By: #### B GLU #### [facility] [address] [place] [address] Erythrocyte distribution width (RBC) [Ratio] 12.8 % Normal 11.5-14.5 [facility] Comment on above: Performed By: #### B GLU #### [facility] [address] [place] [address] Granulocytes/100 WBC (Bld) 92.7 % High 40.0-80.0 [facility] Comment on above: Performed By: #### B GLU #### [facility] [address] [place] [address] Hematocrit (Bld) [Volume fraction] 35.9 % Low 40.0-52.0 [facility] Comment on above: Performed By: #### B GLU #### [facility] [address] [place] [address] Hemoglobin (Bld) [Mass/Vol] 12.4 g/dL Low 13.0-18.0 [facility] Comment on above: Performed By: #### B GLU #### [facility] [address] [place] [address] Lymphocytes (Bld) [#/Vol] 0.5 10*3/uL Low 1.0-4.3 [facility] Comment on above: Performed By: #### B GLU #### [facility] [address] [place] [address] Lymphocytes/100 WBC (Bld) 3.6 % Low 20.0-40.0 [facility] Comment on above: Performed By: #### B GLU #### [facility] [address] [place] [address] MCH (RBC) [Entitic mass] 31.6 pg Normal 26.0-34.0 [facility] Comment on above: Performed By: #### B GLU #### [facility] [address] [place] [address] MCHC 34.6 % Normal 32.0-36.0 [facility] Comment on above: Performed By: #### B GLU #### [facility] [address] [place] [address] MCV (RBC) [Entitic vol] 91.2 fL Normal 80.0-98.0 [facility] Comment on above: Performed By: #### B GLU #### [facility] [address] [place] [address] Monocytes (Bld) [#/Vol] 0.5 10*3/uL Normal 0.0-0.8 [facility] Comment on above: Performed By: #### B GLU #### [facility] [address] [place] [address] Monocytes/100 WBC (Bld) 3.5 % Normal 2.0-10.0 [facility] Comment on above: Performed By: #### B GLU #### [facility] [address] [place] [address] Platelet mean volume (Bld) [Entitic vol] 9.5 fL Normal 7.4-10.4 [facility] Comment on above: Performed By: #### B GLU #### [facility] [address] [place] [address] Platelets (Bld) [#/Vol] 158 10*3/uL Normal 140-440 [facility] Comment on above: Performed By: #### B GLU #### [facility] [address] [place] [address] RBC (Bld) [#/Vol] 3.93 10*6/uL Low 4.40-5.90 [facility] Comment on above: Performed By: #### B GLU #### [facility] [address] [place] [address] WBC (Bld) [#/Vol] 13.3 10*3/uL High 3.6-10.7 [facility] Comment on above: Performed By: #### B GLU #### [facility] [address] [place] [address] MRSA by PCRon 03-22-2021 Staph Aureus Sc No S. aureus detected. Negative nasal MRSA PCR has a high negative predictive value for MRSA pneumonia. Consider stopping vancomycin if no other clinical indication. Contact Antimicrobial Stewardship for further recommendations. The analytical performance characteristics of this assay have been determined by [facility] in accordance with CLIA regulations. The modifications have not been cleared or approved by the U. S. Food and Drug Administration; however, the FDA has determined that such clearance or approval is not necessary. [facility] Test Performed by [facility], [address] [place] [address] [facility] LAB [facility] POCT GlucoseOrdered By: Pascual [place] on 03-22-2021 Glucose [Mass/Vol] 134 mg/dL High 70 - 100 mg/dL [facility] Work Phone: Comment on above: Test performed by gl ucose meter. Results may be 10%-15% lower than serum/plasma values. (CLIA ID [id number]) Interpretation and review of laboratory results Abnormal [facility] Work Phone: [facility] Work Phone: POCT Glucoseon 03-22-2021 Test Performed by [facility], [address] [place], [address] LAB Glucose [Mass/Vol] 190 mg/dL High 70 - 100 mg/dL [facility] Comment on above: Test performed by gl ucose meter. Results may be 10%-15% lower than serum/plasma values. (CLIA ID [id number]) Interpretation and review of laboratory results Abnormal [facility] Test Performed by [facility], [address] [place], [address] LAB [facility] Glucose [Mass/Vol] 200 mg/dL High 70 - 100 mg/dL [facility] Comment on above: Test performed by gl ucose meter. Results may be 10%-15% lower than serum/plasma values. (CLIA ID [id number]) Interpretation and review of laboratory results Abnormal [facility] Test Performed by [facility], [address] [place], [address] [facility] Glucose [Mass/Vol] 181 mg/dL High 70 - 100 mg/dL [facility] Comment on above: Test performed by gl ucose meter. Results may be 10%-15% lower than serum/plasma values. (CLIA ID [id number]) Interpretation and review of laboratory results Abnormal [facility] Test Performed by [facility], [address] [place], [address] [facility] Glucose [Mass/Vol] 186 mg/dL High 70 - 100 mg/dL [facility] Comment on above: Test performed by gl ucose meter. Results may be 10%-15% lower than serum/plasma values. (CLIA ID [id number]) Interpretation and review of laboratory results Abnormal [facility] Test Performed by [facility], [address] [place], [address] LAB [facility] Procalcitoninon 11-22-2021 Procalcitonin 0.09 ng/mL Normal 0.00-0.09 [facility] Comment on above: Performed By: #### H KORIN BRAR3 #### [facility] [address] [place] [address] [address] [facility] Comment on above: PCT <0.50 = Low risk of severe sepsis and/or septic shock. PCT >2.00 = High risk of severe sepsis and/or septic shock. Procalcitonin 0.09 ng/mL 0.00 - 0.09 ng/mL [facility] Test Performed by [facility], [address] [place] [address] [facility] LAB [facility] Staph Aureus Complete Nasalo n 03-22-2021 Staph Aureus Complete Nasal Staph Screen --> Status: F No S. aureus detected. Negative nasal MRSA PCR has a high negative predictive value for MRSA pneumonia. Consider stopping vancomycin if no other clinical indication. Contact Antimicrobial Stewardship for further recommendations. The analytical performance characteristics of this assay have been determined by [employer] in accordance with CLIA regulations. The modifications [...] of this assay have been determined by [employer] in accordance with CLIA regulations. The modifications have not been cleared or approved by the U. S. Food and Drug Administration; however, the FDA has determined that such clearance or approval is not necessary. Normal [facility] Comment on above: Performed By: #### S APCR ####[facility] [address] [place] [address] Vancomycin Troughon 03-22-20 21 Vancomycin Trough 8.1 ug/mL Low 15.0-20.0 [facility] Comment on above: Result Comment: . Performed By: #### B GLU #### [facility] [address] [place] [address] Vancomycin, Troughon 021 Interpretation and review of laboratory results Abnormal [facility] Vancomycin Tr 8.1 ug/mL Low 15.0 - 20.0 ug/mL [facility] Comment on above: . Test Performed by [facility], [address] [place] [address] [facility] Basic Metabolic Panelon 11-2 Anion gap [Moles/Vol] 7 mmol/L Normal 3-13 [facility] Comment on above: Performed By: #### H MAYKEL BMP3 #### [facility] [address] [place] [address] Calcium [Mass/Vol] 8.1 mg/dL Low 8.4-10.4 [facility] Comment on above: Performed By: #### H MAYKEL BMP3 #### [facility] [address] [place] [address] CO2 [Moles/Vol] 26 mmol/L Normal 22-[address] [facility] Comment on above: Performed By: #### H MAYKEL BMP3 #### [facility] [address] [place] [address] Glucose [Mass/Vol] 156 mg/dL High 70-100 [facility] Comment on above: Performed By: #### H MAYKEL BMP3 #### [facility] [address] [place] [address] Urea nitrogen [Mass/Vol] 19 mg/dL High 7-17 [facility] Comment on above: Performed By: #### H ALCIRAF BMP3 #### [facility] [address] [place] [address] Creatinine [Mass/Vol] 0.53 mg/dL Normal 0.52-1.25 [facility] Comment on above: Performed By: #### H EMDF, BMP3 #### [facility] [address] [place] [address] eGFR OTHER > 90.0 Normal >60 [facility] Comment on above: Result Comment: KDIG [...] Performed By: #### H MAYKEL BMP3 #### [facility] [address] [place] [address] GFR/1.73 sq M.predicted among blacks MDRD (S/P/Bld) [Vol rate/Area] mL/min/{1.73_m2} Normal >60 [facility] Comment on above: Performed By: #### H MAYKEL BMP3 #### [facility] [address] [place] [address] Chloride [Moles/Vol] 103 mmol/L Normal 98-107 [facility] Comment on above: Performed By: #### H MAYKEL BMP3 #### [facility] [address] [place] [address] Potassium [Moles/Vol] 3.4 mmol/L Low 3.5-5.1 [facility] Comment on above: Performed By: #### H MAYKEL, BMP3 #### [facility] [address] [place] [address] Sodium [Moles/Vol] 136 mmol/L Normal 135-145 [facility] Comment on above: Performed By: #### H EMDF, BMP3 #### [facility] [address] [place] [address] Basic Metabolic Panel w/ Ref marciano to MGon 03-21-2021 Anion gap [Moles/Vol] 7 mmol/L 3 - 13 mmol/L [facility] Work Phone: Calcium [Mass/Vol] 8.1 mg/dL Low 8.4 - 10. 4 mg/dL [facility] Work Phone: Chloride [Moles/Vol] 103 mmol/L 98 - 10 7 mmol/L [facility] Work Phone: CO2 [Moles/Vol] 26 mmol/L 22 - 30 mmol/L [facility] Work Phone: Creatinine [Mass/Vol] 0.53 mg/dL 0.52 - 1.25 mg/dL [facility] Work Phone: EGFR IF NonAfrican Sudanese >90.0 >60 mL/min [facility] Work Phone: Comment [...] 156 mg/dL High 70 - 100 mg/dL [facility] Work Phone: Interpretation and review of laboratory results Abnormal [facility] Work Phone: Potassium [Moles/Vol] 3.4 mmol/L Low 3.5 - 5.1 mmol/L [facility] Work Phone: Sodium [Moles/Vol] 136 mmol/L 135 - 145 mmol/L [facility] Work Phone: Urea nitrogen (BldV) [Mass/Vol] 19 mg/dL High 7 - 17 mg/dL [facility] Work Phone: Test Performed by [facility], [address] [place], [place] [id number] [place] [address] LAB [facility] Work Phone: CBCon 03-21-2021 Hematocrit (Bld) [Volume fraction] 35.4 % Low 40.0 - 52.0 % [facility] Work Phone: Hemoglobin.gastrointest inal spec 1 Ql (Stl) 11.9 g/dL Low 13.0 - 18.0 g/dL [facility] Work Phone: Interpretation and review of laboratory results Abnormal [facility] Work Phone: MCH (RBC) [Entitic mass] 30.5 pg 26.0 - 34.0 pg [facility] Work Phone: MCHC (RBC) [Mass/Vol] 33.7 % 32.0 - 36.0 % [facility] Work Phone: MCV (RBC) [Entitic vol] 90.6 fL 80.0 - 98.0 fL [facility] Work Phone: Platelet distribution width (Bld) [Ratio] 13.1 % 11.5 - 14.5 % [facility] Work Phone: Platelet mean volume (Bld) [Entitic vol] 9.1 fL 7.4 - 10.4 fL [facility] Work Phone: Platelets (Bld) [#/Vol] 136 10*3/uL Low 140 - 440 10*3/uL [facility] Work Phone: RBC (Bld) [#/Vol] 3.91 10*6/uL Low 4.40 - 5.9 0 10*6/uL [facility] Work Phone: WBC (Bld) [#/Vol] 7.1 10*3/uL 3.6 - 10.7 10*3/uL [facility] Work Phone: Test Performed by [facility], [address] [place], [place] [address] [facility] LAB [facility] Work Phone: Glucose,Bedsideon 03-21-2021 Glucose [Mass/Vol] 131 mg/dL High 70-100 [facility] Comment on above: Result Comment: Test performed by glucose meter. Results may be 10%-15% lower than serum/plasma values. (CLIA ID [id number]) Performed By: #### B GLU #### [facility] [address] [place] [address] Glucose [Mass/Vol] 230 mg/dL High 70-100 [facility] Comment on above: Result Comment: Test performed by glucose meter. Results may be 10%-15% lower than serum/plasma values. (CLIA ID [id number]) Performed By: #### B GLU #### [facility] [address] [place] [address] Hemogramon 03-21-2021 Erythrocyte distribution width (RBC) [Ratio] 13.1 % Normal 11.5-14.5 [facility] Comment on above: Performed By: #### H MAYKEL BMP3 #### [facility] [address] [place] [address] Hematocrit (Bld) [Volume fraction] 35.4 % Low 40.0-52.0 [facility] Comment on above: Performed By: #### H MAYKEL BMP3 #### [facility] [address] [place] [address] Hemoglobin (Bld) [Mass/Vol] 11.9 g/dL Low 13.0-18.0 [facility] Comment on above: Performed By: #### H MAYKEL BMP3 #### [facility] [address] [place] [address] MCH (RBC) [Entitic mass] 30.5 pg Normal 26.0-34.0 [facility] Comment on above: Performed By: #### H MAYKEL BMP3 #### [facility] [address] [place] [address] MCHC 33.7 % Normal 32.0-36.0 [facility] Comment on above: Performed By: #### H MAYKEL BMP3 #### [facility] [address] [place] [address] MCV (RBC) [Entitic vol] 90.6 fL Normal 80.0-98.0 [facility] Comment on above: Performed By: #### H MAYKEL BMP3 #### [facility] [address] [place] [address] Platelet mean volume (Bld) [Entitic vol] 9.1 fL Normal 7.4-10.4 [facility] Comment on above: Performed By: #### H MAYKEL BMP3 #### [facility] [address] [place] [address] Platelets (Bld) [#/Vol] 136 10*3/uL Low 140-440 [facility] Comment on above: Performed By: #### H MAYKEL BMP3 #### [facility] [address] [place] [address] RBC (Bld) [#/Vol] 3.91 10*6/uL Low 4.40-5.90 [facility] Comment on above: Performed By: #### H MAYKEL BMP3 #### [facility] [address] [place] [address] WBC (Bld) [#/Vol] 7.1 10*3/uL Normal 3.6-10.7 [facility] Comment on above: Performed By: #### H MAYKEL BMP3 #### [facility] [address] [place] [address] Magnesiumon 03-21-2021 Magnesium [Mass/Vol] 2.2 mg/dL Normal 1.6-2.3 [facility] Comment on above: Performed By: #### H EMDF, BMP3 #### [facility] [address] [place] [address] Magnesium [Mass/Vol] 2.2 mg/dL 1.6 - 2 .3 mg/dL [facility] Work Phone: Test Performed by [facility], [address] [place] [address] [facility] Work Phone: POCT Glucoseon 03-21-2021 Glucose [Mass/Vol] 131 mg/dL High 70 - 100 mg/dL [facility] Comment on above: Test performed by gl ucose meter. Results may be 10%-15% lower than serum/plasma values. (CLIA ID [id number]) Interpretation and review of laboratory results Abnormal [facility] Test Performed by [facility], [address] [place], [place] [address] [facility] Glucose [Mass/Vol] 230 mg/dL High 70 - 100 mg/dL [facility] Comment on above: Test performed by gl ucose meter. Results may be 10%-15% lower than serum/plasma values. (CLIA ID [id number]) Interpretation and review of laboratory results Abnormal [facility] Test Performed by [facility], [address] [place], [place] [id number] [place] [address] [facility] Procalcitoninon 03-21-2021 Interpretation See Below Normal [facility] Comment on above: Result Comment: PCT <0.50 = Low risk of severe sepsis and/or septic shock. PCT >2.00 = High risk of severe sepsis and/or septic shock. Performed By: #### H EMDF, BMP3 #### [facility] [address] [place] [address] Basic Metabolic Panelon 03-02 Calcium [Mass/Vol] 8.4 mg/dL Normal 8.4-10.4 [facility] Comment on above: Performed By: #### H EMDF, BMP3 #### [facility] [address] [place] [address] Anion gap [Moles/Vol] 6 mmol/L Normal 3-13 [facility] Comment on above: Performed By: #### H EMDF, BMP3 #### [facility] [address] [place] [address] CO2 [Moles/Vol] 27 mmol/L Normal 22-[address] [facility] Comment on above: Performed By: #### H EMDF, BMP3 #### [facility] [address] [place] [address] Glucose [Mass/Vol] 106 mg/dL High 70-100 [facility] Comment on above: Performed By: #### H EMDF, BMP3 #### [facility] [address] [place] [address] Urea nitrogen [Mass/Vol] 14 mg/dL Normal 7-17 [facility] Comment on above: Performed By: #### H MAYKEL BMP3 #### [facility] [address] [place] [address] Creatinine [Mass/Vol] 0.51 mg/dL Low 0.52-1.25 [facility] Comment on above: Performed By: #### H MAYKEL BMP3 #### [facility] [address] [place] [address] eGFR OTHER > 90.0 Normal >60 [facility] Comment on above: Result Comment: KDIG [...] Performed By: #### H MAYKEL BMP3 #### [facility] [address] [place] [address] GFR/1.73 sq M.predicted among blacks MDRD (S/P/Bld) [Vol rate/Area] mL/min/{1.73_m2} Normal >60 [facility] Comment on above: Performed By: #### H MAYKEL BMP3 #### [facility] [address] [place] [address] Chloride [Moles/Vol] 104 mmol/L Normal 98-107 [facility] Comment on above: Performed By: #### H MAYKEL BMP3 #### [facility] [address] [place] [address] Potassium [Moles/Vol] 3.9 mmol/L Normal 3.5-5.1 [facility] Comment on above: Performed By: #### H KORIN BRAR3 #### [facility] [address] [place] [address] Sodium [Moles/Vol] 137 mmol/L Normal 135-145 [facility] Comment on above: Performed By: #### H MAYKEL BMP3 #### [facility] [address] [place] [address] Anion gap [Moles/Vol] 6 mmol/L 3 - 13 mmol/L [facility] Work Phone: Calcium [Mass/Vol] 8.4 mg/dL 8.4 - 10. 4 mg/dL [facility] Work Phone: Chloride [Moles/Vol] 104 mmol/L 98 - 10 7 mmol/L [facility] Work Phone: CO2 [Moles/Vol] 27 mmol/L 22 - 30 mmol/L [facility] Work Phone: Creatinine [Mass/Vol] 0.51 mg/dL Low 0.52 - 1.25 mg/dL [facility] Work Phone: EGFR IF NonAfrican Sudanese >90.0 >60 mL/min [facility] Work Phone: Comment on above: KDIGO [...] MDRD (S/P/Bld) [Vol rate/Area] mL/min/{1.73_m2} >60 mL/min [facility] Work Phone: Glucose [Mass/Vol] 106 mg/dL High 70 - 100 mg/dL [facility] Work Phone: [phone] Interpretation and review of laboratory results Abnormal [facility] Work Phone: [phone] Potassium [Moles/Vol] 3.9 mmol/L 3.5 - 5.1 mmol/L [facility] Work Phone: [phone] Sodium [Moles/Vol] 137 mmol/L 135 - 145 mmol/L [facility] Work Phone: [phone] Urea nitrogen (BldV) [Mass/Vol] 14 mg/dL 7 - 17 mg/dL [facility] Work Phone: [phone] [facility], [address] [place], [place] [address] [facility] Work Phone: [phone] C-Reactive Proteinon 021 CRP [Mass/Vol] 228.1 mg/L High 0.0-9.9 [facility] Comment on above: Result Comment: . Performed By: #### H EMDF, BMP3 #### [facility] [address] [place] [address] CRP [Mass/Vol] 228.1 mg/L High 0.0 - 9.9 mg/L [facility] Work Phone: [phone] Comment on above: . Interpretation and review of laboratory results Abnormal [facility] Work Phone: [phone] Test Performed by [facility], [address] [place], [place] [id number] [place] [address] LAB [facility] Work Phone: COVID and Resp PCR Panelon 05-20-2020 SARS-CoV-2 (COVID-19) RNA SHIRLEY+probe Ql (Unsp spec) COVID and Resp PCR Panel --> Status: F POSITIVE: Respiratory Syncytial Virus DETECTED. _ Expected Result: Not Detected [employer] Upper Respiratory Pathogens PCR Panel can detect the following targets: SARS-CoV-2, Adenovirus, Coronavirus 229E, Coronavirus HKU1, Coronavirus NL63, Coronavirus OC43, Human Metapneumovirus, Human Rhinovirus/Enteroviru s, Influenza A, Influenza B, Parainfluenza Virus 1, Parainfluenza Virus 2, Parainfluenza Virus 3, Parainfluenza Virus 4, Respiratory Syncytial Virus, Bordetella pertussis, Bordetella parapertussis, Chlamydia pneumoniae, Mycoplasma pneumoniae. Method: Real-time PCR. _ Expected Result: Not Detected [employer] Upper Respiratory Pathogens PCR Panel can detect the following targets: SARS-CoV-2, Adenovirus, Coronavirus 229E, Coronavirus HKU1, Coronavirus NL63, Coronavirus OC43, Human Metapneumovirus, Human Rhinovirus/Enteroviru s, Influenza A, Influenza B, Parainfluenza Virus 1, Parainfluenza Virus 2, Parainfluenza Virus 3, Parainfluenza Virus 4, Respiratory Syncytial Virus, Bordetella pertussis, Bordetella parapertussis, Chlamydia pneumoniae, Mycoplasma pneumoniae. Method: Real-time PCR. Abnormal [facility] Comment on above: Performed By: #### B [facility] #### [facility] [address] [place] [phone] EKG 12 Lead - Chest Painon 1 05-20-2020 [facility] Test Date: 2021-03-19 Pat Name: KATHYA HOOPER Department: 1 Room: 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 : 1955 Requested By: BRADY DESAI Order Number: [id number] Reading MD: Fei Menjivar Measurements Intervals [place] Rate: 102 P: 71 [place]: 172 QRS: -30 QRSD: 156 T: 85 QT: 412 QTc: 537 Interpretive Statements SINUS TACHYCARDIA LEFT BUNDLE BRANCH BLOCK Electronically Signed On 03-20-2021 22:47:41 EST by Fei Menjivar [employer] Work Phone: EKG 12 Lead - Chest PainOrde red By: Fei Menjivar on 03-20-2021 [employer] Work Phone: Lactic Acidon 03-20-2021 Lactate [Moles/Vol] 0.7 mmol/L Normal 0.7-2.0 [facility] Comment on above: Performed By: #### H EMDF, BMP3 #### [facility] [address] [place] [address] Lactic Acid, Plasmaon 2020 Lactate [Moles/Vol] 0.7 mmol/L 0.7 - 2. 0 mmol/L [facility] Work Phone: Test Performed by [facility], [address], [place] [id number] [place] [address] [facility] Work Phone: PROCALCITONINon 03-20-2021 Interpretation See Below [facility] Work Phone: Comment on above: PCT <0.50 = Low risk of severe sepsis and/or septic shock. PCT >2.00 = High risk of severe sepsis and/or septic shock. Interpretation and review of laboratory results Abnormal [facility] Work Phone: Test Performed by [employer], [address] [place] [address] [facility] Work Phone: Procalcitoninon 03-20-2021 Procalcitonin 0.14 ng/mL High 0.00-0.09 [facility] Work Phone: Comment on above: Performed By: #### H EMDF, BMP3 #### [facility] [address] [place] [address] Interpretation See Below Normal [facility] Comment on above: Result Comment: PCT <0.50 = Low risk of severe sepsis and/or septic shock. PCT >2.00 = High risk of severe sepsis and/or septic shock. Performed By: #### H MAYKEL, BMP3 #### [facility] [address] [place] [place] [address] Troponinon 03-20-2021 Interpretation and review of laboratory results Abnormal [facility] Work Phone: Troponin I.cardiac [Mass/Vol] 0.037 ng/mL High 0.000 - 0.034 ng/mL [facility] Work Phone: Comment on above: . Test Performed by [facility], [facility] [address] [place], [place] [address] [facility] Work Phone: Troponin Ion 03-20-2021 Troponin I.cardiac [Mass/Vol] 0.037 ng/mL High 0.000-0.034 [facility] Comment on above: Result Comment: . Performed By: #### H MAYKEL BMP3 #### [facility] [address] [place] [address] Arterial Blood Gas Respirato yasmine 03-19-2021 Base Excess 1.2 mmol/L Normal -3.0-3.0 [facility] Comment on above: Performed By: #### B GLU #### [facility] [address] [place] [address] CO2 [Moles/Vol] 25.6 mmol/L Normal 23.0-27.0 [facility] Comment on above: Performed By: #### B GLU #### [facility] [address] [place] [place] [address] FIO2 5 Normal [facility] Comment on above: Result Comment: Perf ormed by CLIA ID: [id number] [place], [place] Performed By: #### B GLU #### [facility] [address] [place] [address] HCO3 (Bld) [Moles/Vol] 24.6 mmol/L Normal 21.0-25.0 [facility] Comment on above: Performed By: #### B GLU #### [facility] [address] [place] [address] Oxygen (Bld) [Partial pressure] 56.7 mm[Hg] Low 80.0-100.0 [facility] Comment on above: Performed By: #### B GLU #### [facility] [address] [place] [address] Oxygen saturation in Blood 91.0 % Low 95.0-100.0 [facility] Comment on above: Performed By: #### B GLU #### [facility] [address] [place] [address] pCO2 33.9 mm[Hg] Low 35.0-45.0 [facility] Comment on above: Performed By: #### B GLU #### [facility] [address] [place] [address] pH 7.468 High 7.350-7.450 [facility] Comment on above: Performed By: #### B GLU #### [facility] [address] [place] [address] Basic Metabolic Panelon 11-1 -2020 Anion gap [Moles/Vol] 9 mmol/L Normal 3-13 [facility] Comment on above: Performed By: #### B MP3, TROPN ####[facility] [place] [address] Calcium [Mass/Vol] 8.5 mg/dL Normal 8.4-10.4 [facility] Comment on above: Performed By: #### B MP3, TROPN ####[facility] [place] [address] CO2 [Moles/Vol] 26 mmol/L Normal 22-30 [facility] Comment on above: Performed By: #### B MP3, TROPN ####[facility] [place] [address] Creatinine [Mass/Vol] 0.48 mg/dL Low 0.52-1.25 [facility] Comment on above: Performed By: #### B MP3, TROPN ####[place] [address] [place] [address] eGFR OTHER > 90.0 Normal >60 [facility] Comment on above: Result Comment: KDIG [...] renal tubular creatinine secretion. Performed By: #### Anmaika PIEDRA TROPN ####[address] [place] [address] GFR/1.73 sq M.predicted among blacks MDRD (S/P/Bld) [Vol rate/Area] mL/min/{1.73_m2} Normal >60 [facility] Comment on above: Performed By: #### Anamika LOPEZ3 TROPN ####[address] [place] [address] Glucose [Mass/Vol] 132 mg/dL High 70-100 [facility] Comment on above: Performed By: #### Anamika LOPEZ3 TROPN ####[address] [place] [address] Urea nitrogen [Mass/Vol] 16 mg/dL Normal 7-17 [facility] Comment on above: Performed By: #### Anamika LOPEZ3 TROPN ####[address] [place] [address] Chloride [Moles/Vol] 102 mmol/L Normal 98-107 [facility] Comment on above: Performed By: #### Anamika LOPEZ3 TROPN ####[address] [place] [address] Potassium [Moles/Vol] 4.1 mmol/L Normal 3.5-5.1 [facility] Comment on above: Performed By: #### B MP3, TROPN ####[facility] [place] [address] Sodium [Moles/Vol] 137 mmol/L Normal 135-145 [facility] Comment on above: Performed By: #### B MP3, TROPN ####[facility] [place] [address] Anion gap [Moles/Vol] 9 mmol/L 3 - 13 mmol/L [facility] Calcium [Mass/Vol] 8.5 mg/dL 8.4 - 10. 4 mg/dL [facility] Chloride [Moles/Vol] 102 mmol/L 98 - 10 7 mmol/L [facility] CO2 [Moles/Vol] 26 mmol/L 22 - 30 mmol/L [facility] Creatinine [Mass/Vol] 0.48 mg/dL Low 0.52 - 1.25 mg/dL [facility] EGFR IF NonAfrican Sudanese >90.0 >60 mL/min [facility] Comment on above: KDIGO guidelines pro [...] - 17 mg/dL [facility] Test Performed by [facility], [address] [place], [place] [id number] [place] [address] [facility] CBC Auto Differentialon 03-01 Absolute Baso [...] Interpretation and review of laboratory results Abnormal [facility] RSV PCR DETECTED Expected Result: Not Detected _ Method: Real-time, RT-PCR This assay was developed by [employer] and distributed under an Emergency Use Authorization (EUA) granted by the FDA for the qualitative detection of nucleic acids from SARS-CoV-2, Influenza A, Influenza B, and Respiratory Syncytial Virus. Provider and patient fact sheets can be found at https://www.fda.gov/m edia/470980/download and https://www.fda.gov/m edia/271914/download. Abnormal [facility] SARS-CoV-2 (COVID-19) RNA SHIRLEY+probe Ql (Unsp spec) Not detected [facility] Test Performed by [facility], [address] [facility] CR Chest Portableon 03-19-20 21 CR Chest Portable Patient Name: KATHYA HOOPER Diagnostic Radiology ACCESSION EXAM DATE/TIME PROCEDURE ORDERING PROVIDER [id number] 03/19/2021 17:10 EST CR Chest Portable [id number] -BRADY DESAI CPT code 30364 Reason For Exam (CR Chest Portable) hypoxia [...] Transcribed Date and Time: 03/19/2021 5:22 Normal [facility] ED Provider Noteon ED Provider Note Emergency Department Encounter [facility] ED Patient: Kathya Hooper : 1955 Date of Evaluation: 03/19/2021 ED Provider: Brady Desai DO Chief Complaint Chief Complaint Patient presents with ? Shortness of Breath SOLOMON I wore appropriate PPE for the entirety of this encounter. Does this patient come from an ECF, SNF, Rehab, Care Home or other Congregate setting: yes (If yes [...] otherwise acutely negative except as in the SOLOMON. Past History Past Medical History: Diagnosis Date [...] and Family: Not on file ? Attends [employer]: Not on file ? Active Member [...] TABLET T (more content not included)... Normal [facility] Hemogram w/ Autodiffon 03-19 Abs Baso Cnt 0.1 10*3/uL Normal 0.0-0.2 [facility] Comment on above: Performed By: #### B GLU #### [facility] [address] [place] [address] Abs Neutrophile Cnt 7.2 10*3/uL High 1.8-7.0 [facility] Comment on above: Performed By: #### B GLU #### [facility] [address] [place] [address] Basophils/100 WBC (Bld) 0.6 % Normal 0.0-2.0 [facility] Comment on above: Performed By: #### B GLU #### [facility] [address] [place] [address] Eosinophils (Bld) [#/Vol] 0.0 10*3/uL Normal 0.0-0.5 [facility] Comment on above: Performed By: #### B GLU #### [facility] [address] [place] [address] Eosinophils/100 WBC (Bld) 0.2 % Low 1.0-6.0 [facility] Comment on above: Performed By: #### B GLU #### [facility] [address] [place] [address] Erythrocyte distribution width (RBC) [Ratio] 13.0 % Normal 11.5-14.5 [facility] Comment on above: Performed By: #### B GLU #### [facility] [address] [place] [address] Granulocytes/100 WBC (Bld) 79.0 % Normal 40.0-80.0 [facility] Comment on above: Performed By: #### B GLU #### [facility] [address] [place] [address] Hematocrit (Bld) [Volume fraction] 38.5 % Low 40.0-52.0 [facility] Comment on above: Performed By: #### B GLU #### [facility] [address] [place] [address] Hemoglobin (Bld) [Mass/Vol] 13.1 g/dL Normal 13.0-18.0 [facility] Comment on above: Performed By: #### B GLU #### [facility] [address] [place] [address] Lymphocytes (Bld) [#/Vol] 1.0 10*3/uL Normal 1.0-4.3 [facility] Comment on above: Performed By: #### B GLU #### [facility] [address] [place] [address] Lymphocytes/100 WBC (Bld) 10.8 % Low 20.0-40.0 [facility] Comment on above: Performed By: #### B GLU #### [facility] [address] [place] [address] MCH (RBC) [Entitic mass] 30.9 pg Normal 26.0-34.0 [facility] Comment on above: Performed By: #### B GLU #### [facility] [address] [place] [address] MCHC 33.9 % Normal 32.0-36.0 [facility] Comment on above: Performed By: #### B GLU #### [facility] [address] [place] [address] MCV (RBC) [Entitic vol] 91.1 fL Normal 80.0-98.0 [facility] Comment on above: Performed By: #### B GLU #### [facility] [address] [place] [address] Monocytes (Bld) [#/Vol] 0.9 10*3/uL High 0.0-0.8 [facility] Comment on above: Performed By: #### B GLU #### [place] [address] [place] [address] Monocytes/100 WBC (Bld) 9.4 % Normal 2.0-10.0 [facility] Comment on above: Performed By: #### B GLU #### [place] [address] [place] [address] Platelet mean volume (Bld) [Entitic vol] 9.9 fL Normal 7.4-10.4 [facility] Comment on above: Performed By: #### B GLU #### [place] [address] [place] [address] Platelets (Bld) [#/Vol] 163 10*3/uL Normal 140-440 [facility] Comment on above: Performed By: #### B GLU #### [facility] [address] [place] [address] RBC (Bld) [#/Vol] 4.23 10*6/uL Low 4.40-5.90 [facility] Comment on above: Performed By: #### B GLU #### [place] [address] [place] [address] WBC (Bld) [#/Vol] 9.1 10*3/uL Normal 3.6-10.7 [facility] Comment on above: Performed By: #### B GLU #### [facility] [address] [place] [address] Lactic Acidon 03-19-2021 Lactate [Moles/Vol] 2.3 mmol/L Critically high 0.7-2.0 [facility] Comment on above: Performed By: #### L ACT3 ####[place] [address] [place] [address] Lactic Acid, Plasmaon 2020 Lactate [Moles/Vol] 2.3 mmol/L Critically high 0.7 - 2.0 mmol/L [facility] No Panel Informationon 03-19 Interpretation and review of laboratory results Abnormal [facility] Test Performed by [facility], [facility] [address] [place], [place] [id number] [place] [address] LAB [facility] RBC MORPHOLOGYon 03-19-2021 Poikilocytes Slight [facility] RBC (Bld) [#/Vol] ABNORMAL [facility] Tear Drop Cells Slight [facility] RBC Morphologyon 03-19-2021 Ovalocytes Slight Normal [facility] Comment on above: Performed By: #### B GLU #### [address] [place] [address] Poikilocytosis Slight Normal [facility] Comment on above: Performed By: #### B GLU #### [place] [address] [place] [address] Polychromasia Slight [facility] Comment on above: Performed By: #### B GLU #### [address] [place] [address] RBC morphology finding Nom (Bld) ABNORMAL Normal [facility] Comment on above: Performed By: #### B GLU #### [address] [place] [address] Tear Drop Forms Slight Normal [facility] Comment on above: Performed By: #### B GLU #### [place] [address] [place] [address] Respiratory Panel, Molecular , with COVID-19 (Restricted: peds pts or suitable admitted adults)on 03-19-2021 Interpretation and review of laboratory results Abnormal [facility] Res[facility] Panel Molecular, with COVID POSITIVE: Respiratory Syncytial Virus DETECTED. _ Expected Result: Not Detected [employer] Upper Respiratory Pathogens PCR Panel can detect the following targets: SARS-CoV-2, Adenovirus, Coronavirus 229E, Coronavirus HKU1, Coronavirus NL63, Coronavirus OC43, Human Metapneumovirus, Human Rhinovirus/Enteroviru s, Influenza A, Influenza B, Parainfluenza Virus 1, Parainfluenza Virus 2, Parainfluenza Virus 3, Parainfluenza Virus 4, Respiratory Syncytial Virus, Bordetella pertussis, Bordetella parapertussis, Chlamydia pneumoniae, Mycoplasma pneumoniae. Method: Real-time PCR. Abnormal [facility] Test Performed by [facility], [address] [place] [address] [facility] LAB [facility] SARS-CoV-2, Flu A/B and RSVo n 03-19-2021 SARS-CoV-2 (COVID-19) RNA SHIRLEY+probe Ql (Unsp spec) SARS-CoV-2 --> Status: F Not Detected. Flu A PCR --> Status: F Not Detected. Flu B PCR --> Status: F Not Detected. RSV PCR --> Status: F DETECTED Expected Result: Not Detected _ Method: Real-time, RT-PCR This assay was developed by [employer] and distributed under an Emergency Use Authorization (EUA) granted by the FDA for the qualitative detection of nucleic acids from SARS-CoV-2, Influenza A, Influenza B, and Respiratory Syncytial Virus. Provider and patient fact sheets can be found at https://www.fda.gov/m edia/615003/download and https://www.fda.gov/m edia/407744/download. Expected Result: Not Detected _ Method: Real-time, RT-PCR This assay was developed by [employer] and distributed under an Emergency Use Authorization (EUA) granted by the FDA for the qualitative detection of nucleic acids from SARS-CoV-2, Influenza A, Influenza B, and Respiratory Syncytial Virus. Provider and patient fact sheets can be found at https://www.fda.gov/m edia/797674/download and https://www.fda.gov/m edia/215126/download. Abnormal [facility] Comment on above: Performed By: #### C VFLR #### [facility] [address] [place] [address] , [address] Troponinon 03-19-2021 Troponin I.cardiac [Mass/Vol] 0.017 ng/mL 0.000 - 0.034 ng/mL [facility] Comment on above: . Test Performed by [facility], [address] [place], [place] [address] [facility] LAB [facility] Troponin Ion 03-19-2021 Troponin I.cardiac [Mass/Vol] 0.017 ng/mL Normal 0.000-0.034 [facility] Comment on above: Result Comment: . Performed By: #### B MP3, TROPN ####[facility] [place] [address] XR CHEST PORTABLEon 03-19-20 Patient Name: KATHYA HOOPER Diagnostic Radiology ACCESSION EXAM DATE/TIME PROCEDURE ORDERING PROVIDER [id number] 03/19/2021 17:10 EST CR Chest Portable [id number] -NESHEIM, BRADY CPT code 83702 Reason For Exam (CR Chest Portable) hypoxia [...] Transcribed Date and Time: 03/19/2021 5:22 [facility] Keshawn Simpson MD - 03/19/2021 Patient Name: KATHYA HOOPER Diagnostic Radiology ACCESSION EXAM DATE/TIME PROCEDURE ORDERING PROVIDER [id number] 03/19/2021 17:10 EST CR Chest Portable [id number] -NESHEIM, BRADY CPT code 30787 Reason For Exam (CR Chest Portable) hypoxia [...] Transcribed Date and Time: 03/19/2021 5:22 [facility] Work Phone: Radiology Study observation (narrative) [facility] Work Phone: XR CHEST PORTABLEOrdered By: Keshawn Simpson on 03-19-2021 [facility] Work Phone: Basic Metabolic Panelon 03-01 Calcium [Mass/Vol] 8.4 mg/dL Normal 8.4-10.4 [facility] Comment on above: Performed By: #### H EMDF BMP3 #### [facility] [address] [place] [address] Glucose [Mass/Vol] 110 mg/dL High 70-100 [facility] Comment on above: Performed By: #### H EMDF BMP3 #### [facility] [address] [place] [address] Anion gap [Moles/Vol] 7 mmol/L Normal 3-13 [facility] Comment on above: Performed By: #### H MAYKEL BMP3 #### [facility] [address] [place] [address] CO2 [Moles/Vol] 26 mmol/L Normal 22-30 [facility] Comment on above: Performed By: #### H EMDF, BMP3 #### [facility] [address] [place] [address] Creatinine [Mass/Vol] 0.54 mg/dL Normal 0.52-1.25 [facility] Comment on above: Performed By: #### H EMDF, BMP3 #### [facility] [address] [place] [address] eGFR OTHER > 90.0 Normal >60 [facility] Comment on above: Result Comment: KDIG [...] Performed By: #### H EMDF BMP3 #### [facility] [address] [place] [address] GFR/1.73 sq M.predicted among blacks MDRD (S/P/Bld) [Vol rate/Area] mL/min/{1.73_m2} Normal >60 [facility] Comment on above: Performed By: #### H ALCIRAF BMP3 #### [facility] [address] [place] [address] Urea nitrogen [Mass/Vol] 18 mg/dL High 7-17 [facility] Comment on above: Performed By: #### H EMDF, BMP3 #### [facility] [address] [place] [address] Potassium [Moles/Vol] 3.9 mmol/L Normal 3.5-5.1 [facility] Comment on above: Performed By: #### H EMDF, BMP3 #### [facility] [address] [place] [address] Chloride [Moles/Vol] 104 mmol/L Normal 98-107 [facility] Comment on above: Performed By: #### H EMDF, BMP3 #### [facility] [address] [place] [address] Sodium [Moles/Vol] 137 mmol/L Normal 135-145 [facility] Comment on above: Performed By: #### H EMDF, BMP3 #### [facility] [address] [place] [address] Anion gap [Moles/Vol] 7 mmol/L 3 - 13 mmol/L [facility] Calcium [Mass/Vol] 8.4 mg/dL 8.4 - 10. 4 mg/dL [facility] Chloride [Moles/Vol] 104 mmol/L 98 - 10 7 mmol/L [facility] CO2 [Moles/Vol] 26 mmol/L 22 - 30 mmol/L [facility] Creatinine [Mass/Vol] 0.54 mg/dL 0.52 - 1.25 mg/dL [facility] EGFR IF NonAfrican Sudanese >90.0 >60 mL/min [facility] Comment on above: [...] - 125 pg/mL [facility] Test Performed by [facility], [address] [place], [place], [place] [address] [facility] CBC Auto Differentialon 03-01 Absolute Baso # [...] - 10.7 10*3/uL [facility] Test Performed by [facility], [address] [facility], Flu A/B, and RSV C ombo 03-18-2021 Influenza A by PCR Not detected [facility] Influenza B by PCR Not detected [facility] Interpretation and review of laboratory results Abnormal [facility] RSV PCR DETECTED Expected Result: Not Detected _ Method: Real-time, RT-PCR This assay was developed by [employer] and distributed under an Emergency Use Authorization (EUA) granted by the FDA for the qualitative detection of nucleic acids from SARS-CoV-2, Influenza A, Influenza B, and Respiratory Syncytial Virus. Provider and patient fact sheets can be found at https://www.fda.gov/m edia/929471/download and https://www.fda.gov/m edia/708233/download. Abnormal [facility] SARS-CoV-2 (COVID-19) RNA SHIRLEY+probe Ql (Unsp spec) Not detected [facility] Test Performed by [facility], [facility] [address] LAB [facility] CR Chest Portableon 03-18-20 21 CR Chest Portable Patient Name: KATHYA HOOPER Diagnostic Radiology ACCESSION EXAM DATE/TIME PROCEDURE ORDERING PROVIDER [id number] 03/18/2021 15:30 EST CR Chest Portable [id number] -BOO CASTRO CPT code 70040 Reason For Exam (CR Chest Portable) sob, [...] KRIKOR Transcribed Date and Time: 03/18/2021 3:35 [facility] CTA Chest W WO (PE study)on 03-18-2021 Patient Name: KATHYA HOOPER Computed Tomography ACCESSION EXAM DATE/TIME PROCEDURE ORDERING PROVIDER [id number] 03/18/2021 16:27 EST CTA Chest w/ + w/o [id number] -CASTRO, Contrast BOO CPT code 86849 Q9967 Reason For Exam (CTA Chest w/ [...] MALAY Transcribed Date and Time: 03/18/2021 4:36 [facility] Malcolm Michaels MD - 03/18/2021 Patient Name: KATHYA HOOPER Computed Tomography ACCESSION EXAM DATE/TIME PROCEDURE ORDERING PROVIDER [id number] 03/18/2021 16:27 EST CTA Chest w/ + w/o [id number] -CASTRO, Contrast BOO CPT code 52546 Q9967 Reason For Exam (CTA Chest w/ [...] MALAY Transcribed Date and Time: 03/18/2021 4:36 [facility] Work Phone: Radiology Study observation (narrative) [facility] Work Phone: CTA Chest W WO (PE study)Ord ered By: Malcolm Michaels on 03-18-2021 [facility] Work Phone: CTA Chest w/ + w/o Contrasto n 03-18-2021 CTA Chest w/ + w/o Contrast Patient Name: KATHYA HOOPER Computed Tomography ACCESSION EXAM DATE/TIME PROCEDURE ORDERING PROVIDER [id number] 03/18/2021 16:27 EST CTA Chest w/ + w/o [id number] [place] [address], Alyson REBOLLEDOY CPT code 52691 Q9967 Reason For Exam (CTA Chest w/ [...] Transcribed Date and Time: 03/18/2021 4:36 Normal [facility] CTA HEAD NECK W WO CONTRASTo n 03-18-2021 Patient Name: KATHYA HOOPER Computed Tomography ACCESSION EXAM DATE/TIME PROCEDURE ORDERING PROVIDER [id number] 03/18/2021 16:26 EST CTA Head/Neck w/ + w/o [id number] -alyson CASTRO CPT code 51251 79837 Q9967 Reason For Exam (CTA Head/Neck w/ [...] OSAMA Transcribed Date and Time: 03/18/2021 4:52 [facility] Greyson Rai MD - 03/18/2021 Patient Name: KATHYA HOOPER Computed Tomography ACCESSION EXAM DATE/TIME PROCEDURE ORDERING PROVIDER [id number] 03/18/2021 16:26 EST CTA Head/Neck w/ + w/o [id number] -alyson CASTRO CPT code 45680 28934 Q9967 Reason For Exam (CTA Head/Neck w/ [...] Tomography ACCESSION EXAM DATE/TIME PROCEDURE ORDERING PROVIDER [id number] 03/18/2021 16:26 EST CTA Head/Neck w/ + w/o [id number] -alyson CASTRO CPT code 77109 79020 Q9967 Reason For Exam (CTA Head/Neck w/ [...] Transcribed Date and Time: 03/18/2021 4:52 Normal [facility] ED Provider Noteon ED Provider [facility]ERGENCY DEPARTMENT ENCOUNTER Pt Name: [...] patient come from an ECF, SNF, Rehab, Care Home or other Congregate setting: no (If yes to above patient needs a Covid-19 test) HPI Kathya Hooper is a 66 y.o. 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 Normal [facility] Hemogram w/ [employer] 03-18 Abs Baso Cnt 0.0 10*3/uL Normal 0.0-0.2 [facility] Comment on above: Performed By: #### H MAYKEL BMP3 #### [facility] [address] [place] [address] Abs Neutrophile Cnt 7.3 10*3/uL High 1.8-7.0 [facility] Comment on above: Performed By: #### H EMDF BMP3 #### [facility] [address] [place] [address] Basophils/100 WBC (Bld) 0.5 % Normal 0.0-2.0 [facility] Comment on above: Performed By: #### H EMDF BMP3 #### [facility] [address] [place] [address] Eosinophils (Bld) [#/Vol] 0.0 10*3/uL Normal 0.0-0.5 [facility] Comment on above: Performed By: #### H MAYKEL BMP3 #### [facility] [address] [place] [address] Eosinophils/100 WBC (Bld) 0.1 % Low 1.0-6.0 [facility] Comment on above: Performed By: #### H MAYKEL BMP3 #### [facility] [address] [place] [address] Erythrocyte distribution width (RBC) [Ratio] 12.9 % Normal 11.5-14.5 [facility] Comment on above: Performed By: #### H MAYKEL BMP3 #### [facility] [address] [place] [address] Granulocytes/100 WBC (Bld) 82.8 % High 40.0-80.0 [facility] Comment on above: Performed By: #### H EMDF BMP3 #### [facility] [address] [place] [address] Hematocrit (Bld) [Volume fraction] 38.3 % Low 40.0-52.0 [facility] Comment on above: Performed By: #### H EMDF BMP3 #### [facility] [address] [place] [address] Hemoglobin (Bld) [Mass/Vol] 13.6 g/dL Normal 13.0-18.0 [facility] Comment on above: Performed By: #### H EMDF BMP3 #### [facility] [address] [place] [address] Lymphocytes (Bld) [#/Vol] 0.7 10*3/uL Low 1.0-4.3 [facility] Comment on above: Performed By: #### H EMDMaurice BMP3 #### [facility] [address] [place] [address] Lymphocytes/100 WBC (Bld) 7.6 % Low 20.0-40.0 [facility] Comment on above: Performed By: #### H EMDF BMP3 #### [facility] [address] [place] [address] MCH (RBC) [Entitic mass] 32.0 pg Normal 26.0-34.0 [facility] Comment on above: Performed By: #### H MAYKEL BMP3 #### [facility] [address] [place] [address] MCHC 35.4 % Normal 32.0-36.0 [facility] Comment on above: Performed By: #### H MAYKEL BMP3 #### [facility] [address] [place] [address] MCV (RBC) [Entitic vol] 90.2 fL Normal 80.0-98.0 [facility] Comment on above: Performed By: #### H MAYKEL BMP3 #### [facility] [address] [place] [address] Monocytes (Bld) [#/Vol] 0.8 10*3/uL Normal 0.0-0.8 [facility] Comment on above: Performed By: #### H EMDF, BMP3 #### [facility] [address] [place] [address] Monocytes/100 WBC (Bld) 9.0 % Normal 2.0-10.0 [facility] Comment on above: Performed By: #### H EMDF, BMP3 #### [facility] [address] [place] [address] Platelet mean volume (Bld) [Entitic vol] 9.8 fL Normal 7.4-10.4 [facility] Comment on above: Performed By: #### H EMDF, BMP3 #### [facility] [address] [place] [address] Platelets (Bld) [#/Vol] 129 10*3/uL Low 140-440 [facility] Comment on above: Performed By: #### H KORIN BRAR3 #### [facility] [address] [place] [address] RBC (Bld) [#/Vol] 4.24 10*6/uL Low 4.40-5.90 [facility] Comment on above: Performed By: #### H KORIN BRAR3 #### [facility] [address] [place] [address] WBC (Bld) [#/Vol] 8.8 10*3/uL Normal 3.6-10.7 [facility] Comment on above: Performed By: #### KORIN BLANCAS3 #### [facility] [address] [place] [address] MAGNESIUMon 03-18-2021 Magnesium [Mass/Vol] 2.0 mg/dL 1.6 - 2 .3 mg/dL [facility] Magnesiumon 03-18-2021 Magnesium [Mass/Vol] 2.0 mg/dL Normal 1.6-2.3 [facility] Comment on above: Performed By: #### MITALI BLANCAS #### [facility] [address] [place] [address] NT pro BNPon 03-18-2021 Natriuretic peptide B (Bld) [Mass/Vol] 710 pg/mL High 0-125 [facility] Comment on above: Performed By: #### KORIN BLANCAS3 #### [facility] [address] [place] [address] No Panel Informationon 03-18 Test Performed by [facility], [facility] [address] [place] [address] [facility] PROTIME/INR & PTTon 03-18-20 aPTT Coag (Bld) [Time] 30.7 s High 20.0 - 30.[address] [facility] Comment on above: NOTE: The therapeuti c time for Heparin anticoagulation, based on Xa activity inhibition, is an APTT of 46-80 seconds. INR Coag (Bld) [Relative time] 1.1 {INR} [facility] Comment on above: Recommended Anticoag ulant [...] and review of laboratory results Abnormal [facility] PT Coag (PPP) [Time] 11.4 s 9.0 - 12.0 s [facility] Comment on above: . Test Performed by [facility], [address], [place], [place] [address] [facility] Protime AND APTTon aPTT Coag (Bld) [Time] 30.7 s High 20.0-30.5 [facility] Comment on above: Result Comment: NOTE : The therapeutic time for Heparin anticoagulation, based on Xa activity inhibition, is an APTT of 46-80 seconds. Performed By: #### H MAYKEL BMP3 #### [facility] [address] [place] [address] INR 1.1 Normal 0.9-1.1 [facility] Comment on above: Result Comment: Yefri [...] to prevent Myocardial Infarction Performed By: #### Kerri BRAR BMP3 #### [facility] [address] [place] [address] PT Coag (PPP) [Time] 11.4 s Normal 9.0-12.0 [facility] Comment on above: Result Comment: . Performed By: #### H MAYKEL BMP3 #### [facility] [address] [place] [address] SARS-CoV-2, Flu A/B and RSVo n 03-18-2021 SARS-CoV-2 (COVID-19) RNA SHIRLEY+probe Ql (Unsp spec) SARS-CoV-2 --> Status: F Not Detected. Flu A PCR --> Status: F Not Detected. Flu B PCR --> Status: F Not Detected. RSV PCR --> Status: F DETECTED Expected Result: Not Detected _ Method: Real-time, RT-PCR This assay was developed by [employer] and distributed under an Emergency Use Authorization (EUA) granted by the FDA for the qualitative detection of nucleic acids from SARS-CoV-2, Influenza A, Influenza B, and Respiratory Syncytial Virus. Provider and patient fact sheets can be found at https://www.fda.gov/m edia/996028/download and https://www.fda.gov/ edia/535140/download. Expected Result: Not Detected _ Method: Real-time, RT-PCR This assay was developed by [employer] and distributed under an Emergency Use Authorization (EUA) granted by the FDA for the qualitative detection of nucleic acids from SARS-CoV-2, Influenza A, Influenza B, and Respiratory Syncytial Virus. Provider and patient fact sheets can be found at https://www.BabyList.gov/m edia/654526/download and https://www.BabyList.gov/m edia/386682/download. Abnormal [facility] Comment on above: Performed By: #### C VFLR #### [facility] [address] [place] [address] , [address] TS GELon 03-18-2021 TS GEL ABO Group: O Rh, Gel: POS Antibody Screen Gel: NEG Normal [facility] Comment on above: Performed By: #### T SGL #### [facility] [employer] TYPE AND SCREENon 03-18-[address] [facility] Rh Type Positive [facility], [address] [place], [place] [address] [facility] X[facility] CHEST PORTABLEon 03-18-20 Patient Name: KATHYA HOOPER Diagnostic Radiology ACCESSION EXAM DATE/TIME PROCEDURE ORDERING PROVIDER [id number] 03/18/2021 15:30 EST CR Chest Portable [id number] [place] [address] CPT code 95577 Reason For Exam (CR Chest Portable) sob, [...] KRIKOR Transcribed Date and Time: 03/18/2021 3:35 [facility] Alejandra Munoz MD - 03/18/2021 Patient Name: KATHYA HOOPER Diagnostic Radiology ACCESSION EXAM DATE/TIME PROCEDURE ORDERING PROVIDER [id number] 03/18/2021 15:30 EST CR Chest Portable [id number] [place] [address] CPT code 41776 Reason For Exam (CR Chest Portable) sob, [...] KRIKOR Transcribed Date and Time: 03/18/2021 3:35 [facility] Work Phone: Radiology Study observation (narrative) [facility] Work Phone: XR CHEST PORTABLEOrdered By: Alejandra Munoz on 03-18-2021 [facility] Work Phone: ED Provider Noteon ED Provider Note - Attestation signed by Edwin Montejo MD at 10/31/2020 7:09 AM Emergency Medicine Attending Note This patient was seen and treated independently by the client professional. I was present and available in [...] Date ? TREVER (acute kidney injury) ([facility]) ? Alcohol abuse 07/08/2018 ? Anxiety ? Depression ? Fall 06/2018 ? Schizophrenia ([facility]) SURGICALHISTORY Past Surgical History: Procedure Laterality Date [...] Strain: ? (more content not included)... Normal [facility] [place] GI TUBE EVALUATION W CONT RASTOrdered By: Helen Toledo on 10-30-2020 Patient Name: KATHYA HOOPER Fluoroscopy ACCESSION EXAM DATE/TIME PROCEDURE ORDERING PROVIDER [id number] 10/30/2020 15:07 EDT RF Intro Long GI Tube w/ KRISTA TOLEDO, HELEN Rojas CPT code 09620 Reason For Exam (RF Intro Long GI [...] Phone: Jaquan, [facility] Incoming Radiology Results From [facility] - 10/30/2020 4:07 PM EDT Patient Name: KATHYA HOOPER Fluoroscopy ACCESSION EXAM DATE/TIME PROCEDURE ORDERING PROVIDER [id number] 10/30/2020 15:07 EDT RF Intro Long GI Tube w/ KRISTA TOLEDO AMY L Fluoro CPT code 75576 Reason For Exam (RF Intro Long GI [...] J Transcribed Date and Time: 10/30/2020 4:06 [facility] Work Phone: [facility] Work Phone: RF Intro Long GI Tube w/ Flu oroon 10-30-2020 RF Intro Long GI Tube w/ Fluoro Patient Name: KATHYA HOOPER Fluoroscopy ACCESSION EXAM DATE/TIME PROCEDURE ORDERING PROVIDER [id number] 10/30/2020 15:07 EDT RF Intro Long GI Tube w/ KRISTA TOLEDO, HELEN [place] Fluoro CPT code 59984 Reason For Exam (RF Intro Long GI [...] Transcribed Date and Time: 10/30/2020 4:06 Normal [facility] ED Provider Noteon ED Provider Note [facility] ED EMERGENCY DEPARTMENT ENCOUNTER Pt Name: [...] Gatherings with Friends and Family: ? Attends [employer] Services: ? Active Member of Clubs or [...] Soft, non-distended (more content not included)... Normal [facility] FL GI TUBE EVALUATION W CONT RASTOrdered By: Elizabeth Burgess on 09-22-2020 Patient Name: KATHYA HOOPER Fluoroscopy ACCESSION EXAM DATE/TIME PROCEDURE ORDERING PROVIDER [id number] 09/22/2020 04:09 EDT RF Intro Long GI Tube w/ [address] EL[address] BARBER CPT code 52131 Reason For Exam (RF Intro Long GI [...] Transcribed Date and Time: 09/22/2020 5:11 [facility] Work Phone: Jaquan, [facility] Incoming Radiology Results From Maria [facility] - 09/22/2020 5:11 AM EDT Patient Name: KATHYA HOOPER Fluoroscopy ACCESSION EXAM DATE/TIME PROCEDURE ORDERING PROVIDER [id number] 09/22/2020 04:09 EDT RF Intro Long GI Tube w/ [id number] ELIZABETH BARBER CPT code 84664 Reason For Exam (RF Intro Long GI [...] Fluoroscopy ACCESSION EXAM DATE/TIME PROCEDURE ORDERING PROVIDER [id number] 09/22/2020 04:09 EDT RF Intro Long GI Tube w/ [id number] ELIZABETH BARBER CPT code 42555 Reason For Exam (RF Intro Long GI [...] JEFFREY Transcribed Date and Time: 09/22/2020 5:11 [facility] ED Provider Noteon ED Provider Note [...] otherwise acutely negative except as in the [place]. PAST MEDICAL HISTORY Past Medical History: Diagnosis [...] (AQUAPHOR) ointment Apply topically as needed. Balsam [place] Oil (VENELEX) OINT ointment Apply topically every [...] file Gets together: Not on file Attends uatsdin service: Not on file Active member of [...] for level (more content not included)... Normal [facility] [place] GI TUBE EVALUATION W BRANDON TEODOROSelvin 06-26-2020 Patient Name: KATHYA HOOPER Fluoroscopy ACCESSION EXAM DATE/TIME PROCEDURE ORDERING PROVIDER [id number] 06/26/2020 20:20 EST RF Intro Long GI Tube w/ [id number] -ABELARDO RIOS CPT code 48674 Reason For Exam (RF Intro Long GI [...] and Time: 06/26/2020 9:16 [facility] Work Phone: [facility], [facility] Incoming Radiology Results From [facility] - 06/26/2020 9:16 PM EST Patient Name: KATHYA HOOPER Fluoroscopy ACCESSION EXAM DATE/TIME PROCEDURE ORDERING PROVIDER [id number] 06/26/2020 20:20 EST RF Intro Long GI Tube w/ [id number] -ABELARDO RIOS CPT code 43526 Reason For Exam (RF Intro Long GI [...] Fluoroscopy ACCESSION EXAM DATE/TIME PROCEDURE ORDERING PROVIDER [id number] 06/26/2020 20:20 EST RF Intro Long GI Tube w/ [id number] -ABELARDO RIOS CPT code 23845 Reason For Exam (RF Intro Long GI [...] Transcribed Date and Time: 06/26/2020 9:16 Normal [facility] Clinical Summary: HMSPatient IDon 05-22-2019 WOP [facility] Work Phone: Office Visit: New - 1st visi t with practice, Rm: 2on 05-22-2019 NEGATED: Highlighted rowCT scan history of the right lower extremity on 05/16/2019 at [facility] Work Phone: NEGATED: Highlighted rowTobacco smoking status NHIS current someday smoker [facility] Work Phone: NEGATED: Highlighted rowxray history of the pelvis with hip on 05/11/2019 at [facility] , of the pelvis on 05/13/2019 at [facility] Imaging [facility] Work Phone: CT LOWER EXTREMITY RIGHT WO CONTRASTOrdered By: Elizabeth Burgess on 05-16-2019 Patient Name: KATHYA HOOPER ---CT--- Exam Date/Time 05/16/2019 21:10:[address] Low Ext w/o Contrast Right Ordering Physician ZakHayley BARBERELIZABETH Accession Number [id number] CPT4 Codes 41016 () Reason For Exam right hip pain, [...] RISA Transcribed Date and Time: 05/16/2019 9:24 [facility] Work Phone: Jaquan, Ericka Incoming Radiology Results From [facility] - 05/16/2019 9:24 PM EST Patient Name: KATHYA HOOPER ---CT--- Exam Date/Time 05/16/2019 21:10:[address] Low Ext w/o Contrast Right Ordering Physician ELIZABETH BARKER Accession Number [id number] CPT4 Codes 28469 () Reason For Exam right hip pain, [...] RISA Transcribed Date and Time: 05/16/2019 9:[address] [facility] Work Phone: Differential,Body Fluidson 0 09-27-2018 Other Cells 46 % Normal [facility] Comment on above: Result Comment: Bloo dy specimen with reactive mesothelial cells and chronic inflammation with occasional hemophagocytosis. 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 [address] [place], [place] #### VD25H #### [facility] [address] [place] [address] CULTURE AND STAIN - FLUIDon 09-25-2018 CULTURE AND STAIN - FLUID CULTURE & STAIN - FLUID --> Status: F No growth at 5 days. STAIN GRAM --> Status: F Moderate polymorphonuclear cells/lpf. Moderate mononuclear cells/lpf No organisms seen. Cytocentrifugation performed. Moderate mononuclear cells/lpf No organisms seen. Cytocentrifugation performed. Normal [facility] Comment on above: Performed By: #### H EMDF, PT, BMP3M, PHOS3, MG3, CK3 #### [facility] [address] [place], [place] #### VD25H #### [facility] [address] [place] [address] Cell Count,Body Fluidon 05- Nucleated Cells 2391 {cells}/uL Normal [facility] Comment on above: Performed By: #### H EMDF, PT, BMP3M, PHOS3, MG3, CK3 #### [facility] [address] [place], [place] #### VD25H #### [facility] [address] [place] [address] [place] [address] {RBC}/uL Normal [facility] Comment on above: Performed By: #### H EMDF, PT, BMP3M, PHOS3, MG3, CK3 #### [place] [address] [place], [place] #### VD25H #### [facility] [address] [place] [address] Fluid Type Thoracentesis Normal [facility] Comment on above: Performed By: #### H EMDF, PT, BMP3M, PHOS3, MG3, CK3 #### [place] [address] [place], [place] #### VD25H #### [facility] [address] [place] [address] Differential,Body Fluidson 0 09-25-2018 Lymphocytes/100 WBC (Bld) 28 % Normal [facility] Comment on above: Performed By: #### H EMDF, PT, BMP3M, PHOS3, MG3, CK3 #### [place] [address] [place], [place] #### VD25H #### [facility] [address] [place] [address] Monocytes/100 WBC (Bld) 1 % Normal [facility] Comment on above: Performed By: #### H EMDF, PT, BMP3M, PHOS3, MG3, CK3 #### [place] [address] [place], [place] #### VD25H #### [facility] [address] [place] [address] Neutrophils/100 WBC (Bld) 25 % Normal [facility] Comment on above: Performed By: #### H EMDF, PT, BMP3M, PHOS3, MG3, CK3 #### [place] [address] [place], [place] #### VD25H #### [facility] [address] [place] [address] Cells Counted for Diff 100 Normal [facility] Comment on above: Performed By: #### H EMDF, PT, BMP3M, PHOS3, MG3, CK3 #### [facility] [address] [place] [address] #### VD25H #### [facility] [address] [place] [address] LDH, Body Fluidon 09-25-2018 LDH, Body Fluid 174 U/L Normal No Range [facility] Comment on above: Performed By: #### H EMDF, PT, BMP3M, PHOS3, MG3, CK3 #### [facility] [address] [place] [address] #### VD25H #### [facility] [address] [place] [address] Protein, Total Body Fluidon 09-25-2018 Protein,Total-Body Fld 3.4 g/dL Normal No Range [facility] Comment on above: Performed By: #### H EMDF, PT, BMP3M, PHOS3, MG3, CK3 #### [facility] [address] [place], [place] #### VD25H #### [facility] [address] [place] [address] US Thora-Aspir Pleura w/ Evelin geon 09-25-2018 US Thora-Aspir Pleura w/ Image Patient Name: KATHYA HOOPER Ultrasound Exam Date/Time 09/25/2018 13:23:41 EDT Exam US Thora-Aspir Pleura w/ Image Ordering Physician SALO DAVIS Accession Number [id number] CPT4 Codes 36908 () Reason For Exam pleural effusion Report [...] Transcribed Date and Time: 09/25/2018 3:07 Normal [facility] CULTURE MYCOBACTERIAon 09-03 CULTURE MYCOBACTERIA CULTURE MYCOBACTERI A --> Status: F No acid-fast bacilli isolated after 6 weeks incubation. [facility] Comment on above: Performed By: #### H EMDF, PT, BMP3M, PHOS3, MG3, CK3 #### [facility] [address] [place] [address] #### VD25H #### [facility] [address] [place] [address] CULTURE URINEon 08-23-2018 CULTURE URINE CULTURE URINE --> Status: F No growth (<1,000 CFU/ml). [facility] Comment on above: Order Comment: Speci men Source Comment:Urine, clean catch Performed By: #### H EMDF, PT, BMP3M, PHOS3, MG3, CK3 #### [facility] [address] [place] [address] #### VD25H #### [facility] [address] [place] [address] CR Chest Portableon 08-23-19 19 CR Chest Portable Patient Name: KATHYA HOOPER Diagnostic Radiology Exam Date/Time 08/22/2018 07:07:07 EDT Exam CR Chest Portable Ordering Physician [id number] OLEA Accession Number [id number] CPT4 Codes 83625 () Reason For Exam dyspnea Report Portable [...] Transcribed Date and Time: 08/22/2018 7:[address] [facility] Glucose,Bedsideon 08-22-2018 Glucose mass conc 127 mg/dL High 70-100 [facility] Comment on above: Result Comment: Test performed by glucose meter. Results may be 10%-15% lower than serum/plasma values. (CLIA ID [id number]) Performed By: #### H EMDF, PT, BMP3M, PHOS3, MG3, CK3 #### [email or web address] [facility] [address] [place], [place] #### VD25H #### [employer] [facility] [address] [place] [address] Urinalysis,Macroon 9 Appearance Nom (U) clear Normal Clear [facility] Comment on above: Performed By: #### H EMDF, PT, BMP3M, PHOS3, MG3, CK3 #### [employer] [address] [place], [place] #### VD25H #### [facility] [employer] [address] [place] [address] Bilirubin,Ur Negative Normal Negative [facility] [employer] Comment on above: Performed By: #### H EMDF, PT, BMP3M, PHOS3, MG3, CK3 #### [facility] [address] [facility], [place] #### VD25H #### [facility] [address] [place] [address] Color Nom (U) dk.yel Normal Lt. Yellow [facility] Comment on above: Performed By: #### H EMDF, PT, BMP3M, PHOS3, MG3, CK3 #### [facility] [address] [facility], [place] #### VD25H #### [facility] [address] [place] [address] Glucose Ql (U) NORM Normal Negative [facility] Comment on above: Performed By: #### H EMDF, PT, BMP3M, PHOS3, MG3, CK3 #### [place] [address] [facility], [place] #### VD25H #### [facility] [address] [place] [address] Ketone,Urine Negative Normal Negative [facility] Comment on above: Performed By: #### H EMDF, PT, BMP3M, PHOS3, MG3, CK3 #### [place] [address] [facility], [place] #### VD25H #### [facility] [address] [place] [address] Nitrite Ql (U) Negative Normal Negative [facility] Comment on above: Performed By: #### H EMDF, PT, BMP3M, PHOS3, MG3, CK3 #### [place] [address] [facility], [place] #### VD25H #### [facility] [address] [place] [address] Occult Blood,Ur Negative Normal Negative [facility] Comment on above: Performed By: #### H EMDF, PT, BMP3M, PHOS3, MG3, CK3 #### [place] [address] [place], [place] #### VD25H #### [facility] [address] [place] [address] pH (U) 8.0 Normal 5.0-8.0 [facility] Comment on above: Performed By: #### H EMDF, PT, BMP3M, PHOS3, MG3, CK3 #### [place] [address] [place], [place] #### VD25H #### [facility] [address] [place] [address] Protein mass conc (U) Negative Normal Negative [facility] Comment on above: Performed By: #### H EMDF, PT, BMP3M, PHOS3, MG3, CK3 #### [place] [address] [place], [place] #### VD25H #### [facility] [address] [place] [address] Specific [place],Urine 1.015 Normal 1.005-1.030 [facility] Comment on above: Performed By: #### H EMDF, PT, BMP3M, PHOS3, MG3, CK3 #### [place] [address] [facility], [place] #### VD25H #### [facility] [address] [place] [address] Urobilinogen Qn (U) 1 mg/dL Normal 0-1 [facility] Comment on above: Performed By: #### H EMDF, PT, BMP3M, PHOS3, MG3, CK3 #### [place] [address] [facility], [place] #### VD25H #### [facility] [address] [place] [address] WBC #/vol (Bld) Negative Normal Negative [facility] Comment on above: Performed By: #### H EMDF, PT, BMP3M, PHOS3, MG3, CK3 #### [place] [address] [facility], [place] #### VD25H #### [facility] [address] [place] [address] Basic Metabolic Panelon 04-2 3-2019 Calcium mass conc 7.8 mg/dL Low 8.4-10.4 [facility] Comment on above: Performed By: #### H EMDF, PT, BMP3M, PHOS3, MG3, CK3 #### [facility] [address] [place] [address] #### VD25H #### [facility] [address] [place] [address] Glucose mass conc 102 mg/dL High 70-100 [facility] Comment on above: Performed By: #### H EMDF, PT, BMP3M, PHOS3, MG3, CK3 #### [address] [place], [place] #### VD25H #### [facility] [address] [place] [address] Anion gap molar conc 0 Normal [facility] Comment on above: Performed By: #### H EMDF, PT, BMP3M, PHOS3, MG3, CK3 #### [place] [address] [place], [place] #### VD25H #### [facility] [address] [place] [address] CO2 molar conc 37 mmol/L High 22-30 [facility] Comment on above: Performed By: #### H EMDF, PT, BMP3M, PHOS3, MG3, CK3 #### [facility] [address] [place], [place] #### VD25H #### [facility] [address] [place] [address] Creatinine mass conc 0.46 mg/dL Low 0.52-1.25 [facility] Comment on above: Performed By: #### H EMDF, PT, BMP3M, PHOS3, MG3, CK3 #### [address] [place] [address] #### VD25H #### [facility] [address] [place] [address] GFR/1.73 sq M predicted among blacks MDRD vol rate/area (S/P/Bld) mL/min/{1.73_m2} Normal >60 [facility] Comment on above: Performed By: #### H EMDF, PT, BMP3M, PHOS3, MG3, CK3 #### [facility] [address] [place] [address] #### VD25H #### [facility] [address] [place] [address] GFR/1.73 sq M predicted among non-blacks MDRD vol rate/area (S/P/Bld) mL/min/{1.73_m2} Normal >60 [facility] Comment on above: Result Comment: Sour ce- MDRD equation with creatinine calibration to IDMS(NKDEP) eGFR not recommended for drug dose adjustment Performed By: #### H EMDF, PT, BMP3M, PHOS3, MG3, CK3 #### [address] #### VD25H #### [facility] [address] [place] [address] Urea nitrogen mass conc 7 mg/dL Normal 7-20 [facility] Comment on above: Performed By: #### H EMDF, PT, BMP3M, PHOS3, MG3, CK3 #### [address] [address] #### VD25H #### [facility] [address] [place] [address] Potassium molar conc 3.7 mmol/L Normal 3.5-5.1 [facility] Comment on above: Performed By: #### H EMDF, PT, BMP3M, PHOS3, MG3, CK3 #### [address] [address] #### VD25H #### [facility] [address] [place] [address] Chloride molar conc 101 mmol/L Normal 98-107 [facility] Comment on above: Performed By: #### H EMDF, PT, BMP3M, PHOS3, MG3, CK3 #### [facility] [address] [place] [address] #### VD25H #### [facility] [address] [place] [address] Sodium molar conc 138 mmol/L Normal 135-145 [facility] Comment on above: Performed By: #### H EMDF, PT, BMP3M, PHOS3, MG3, CK3 #### [facility] [address] [place] [address] #### VD25H #### [facility] [address] [place] [address] CR Chest Portableon 08-22-19 CR Chest Portable Patient Name: KATHYA HOOPER Diagnostic Radiology Exam Date/Time 08/21/2018 09:46:47 EDT Exam CR Chest Portable Ordering Physician MALLORY STAPLES Accession Number [id number] CPT4 Codes 07304 () Reason For Exam edema Report PORTABLE [...] Transcribed Date and Time: 08/21/2018 11:14 Normal [facility] CULTURE ANAEROBEon 9 CULTURE ANAEROBE CULTURE ANAEROBE --> Status: F No growth of anaerobes at [address] [facility] Comment on above: Order Comment: or co llected Performed By: #### H EMDF, PT, BMP3M, PHOS3, MG3, CK3 #### [employer] [facility] [address] [place] [address] #### VD25H #### [employer] [facility] [address] [place] [address] Glucose,Bedsideon 08-21-2018 Glucose mass conc 124 mg/dL High 70-100 [facility] Comment on above: Result Comment: Test performed by glucose meter. Results may be 10%-15% lower than serum/plasma values. (CLIA ID [id number]) Performed By: #### H EMDF, PT, BMP3M, PHOS3, MG3, CK3 #### [employer] [facility] [place], [place] #### VD25H #### [employer] [address] [place] [address] Glucose mass conc 135 mg/dL High 70-100 [facility] Comment on above: Result Comment: Test performed by glucose meter. Results may be 10%-15% lower than serum/plasma values. (CLIA ID [id number]) Performed By: #### H EMDF, PT, BMP3M, PHOS3, MG3, CK3 #### [employer] [facility] [address] [place] [address] #### VD25H #### [employer] [facility] [address] [place] [address] Glucose mass conc 131 mg/dL High 70-100 [facility] Comment on above: Result Comment: Test performed by glucose meter. Results may be 10%-15% lower than serum/plasma values. (CLIA ID [id number]) Performed By: #### H EMDF, PT, BMP3M, PHOS3, MG3, CK3 #### [employer] [address] [place] [address] #### VD25H #### [employer] [facility] [address] [place] [address] Glucose mass conc 112 mg/dL High 70-100 [facility] Comment on above: Result Comment: Test performed by glucose meter. Results may be 10%-15% lower than serum/plasma values. (CLIA ID [id number]) Performed By: #### H EMDF, PT, BMP3M, PHOS3, MG3, CK3 #### [facility] [address] [place], [place] #### VD25H #### [facility] [address] [place] [address] Basic Metabolic Panelon 07-31 Anion gap molar conc 4 Normal [facility] Comment on above: Performed By: #### H EMDF, PT, BMP3M, PHOS3, MG3, CK3 #### [address] #### VD25H #### [facility] [address] [place] [address] Calcium mass conc 7.6 mg/dL Low 8.4-10.4 [facility] Comment on above: Performed By: #### H EMDF, PT, BMP3M, PHOS3, MG3, CK3 #### [place] [address] [place], [place] #### VD25H #### [facility] [address] [place] [address] CO2 molar conc 36 mmol/L High 22-30 [facility] Comment on above: Performed By: #### H EMDF, PT, BMP3M, PHOS3, MG3, CK3 #### [place] [address] [place], [place] #### VD25H #### [facility] [address] [place] [address] Glucose mass conc 121 mg/dL High 70-100 [facility] Comment on above: Performed By: #### H EMDF, PT, BMP3M, PHOS3, MG3, CK3 #### [place] [address] [place], [place] #### VD25H #### [facility] [address] [place] [address] Urea nitrogen mass conc 9 mg/dL Normal 7-20 [facility] Comment on above: Performed By: #### H EMDF, PT, BMP3M, PHOS3, MG3, CK3 #### [facility] [address] [place] [address] #### VD25H #### [facility] [address] [place] [address] Creatinine mass conc 0.51 mg/dL Low 0.52-1.25 [facility] Comment on above: Performed By: #### H EMDF, PT, BMP3M, PHOS3, MG3, CK3 #### [address] #### VD25H #### [facility] [address] [place] [address] GFR/1.73 sq M predicted among blacks MDRD vol rate/area (S/P/Bld) mL/min/{1.73_m2} Normal >60 [facility] Comment on above: Performed By: #### H EMDF, PT, BMP3M, PHOS3, MG3, CK3 #### [address] #### VD25H #### [facility] [address] [place] [address] GFR/1.73 sq M predicted among non-blacks MDRD vol rate/area (S/P/Bld) mL/min/{1.73_m2} Normal >60 [facility] Comment on above: Result Comment: Sour ce- MDRD equation with creatinine calibration to IDMS(NKDEP) eGFR not recommended for drug dose adjustment Performed By: #### H EMDF, PT, BMP3M, PHOS3, MG3, CK3 #### [address] #### VD25H #### [facility] [address] [place] [address] Chloride molar conc 100 mmol/L Normal 98-107 [facility] Comment on above: Performed By: #### H EMDF, PT, BMP3M, PHOS3, MG3, CK3 #### [facility] [address] [place], [place] #### VD25H #### [facility] [address] [place] [address] Potassium molar conc 3.3 mmol/L Low 3.5-5.1 [facility] Comment on above: Performed By: #### H EMDF, PT, BMP3M, PHOS3, MG3, CK3 #### [facility] [address] [place], [place] #### VD25H #### [facility] [address] [place] [address] Sodium molar conc 140 mmol/L Normal 135-145 [facility] Comment on above: Performed By: #### H EMDF, PT, BMP3M, PHOS3, MG3, CK3 #### [facility] [address] [facility] [place] #### VD25H #### [facility] [address] [place] [address] Glucose,Bedsideon 08-20-2018 Glucose mass conc 121 mg/dL High 70-100 [facility] Comment on above: Result Comment: Test performed by glucose meter. Results may be 10%-15% lower than serum/plasma values. (CLIA ID [id number]) Performed By: #### H EMDF, PT, BMP3M, PHOS3, MG3, CK3 #### [facility] [address] [place], [place] #### VD25H #### [facility] [address] [place] [address] Glucose mass conc 127 mg/dL High 70-100 [facility] Comment on above: Result Comment: Test performed by glucose meter. Results may be 10%-15% lower than serum/plasma values. (CLIA ID [id number]) Performed By: #### H EMDF, PT, BMP3M, PHOS3, MG3, CK3 #### [facility] [address] [place], [place] #### VD25H #### [facility] [address] [place] [address] Hep A Abs, Totalon 9 Hep A Abs, Total Negative Normal Negative [facility] Comment on above: Result Comment: Perf ormed by [employer], [address] [place] [address] [email or web address], Moo Lay MD - Lab. Director Performed By: #### H EMDF, PT, BMP3M, PHOS3, MG3, CK3 #### [place] [address] [place], [place] #### VD25H #### [facility] [address] [place] [address] Basic Metabolic Panelon 07-31 Anion gap molar conc 1 Normal [facility] Comment on above: Performed By: #### H EMDF, PT, BMP3M, PHOS3, MG3, CK3 #### [place] [address] [place], [place] #### VD25H #### [facility] [address] [place] [address] Calcium mass conc 7.6 mg/dL Low 8.4-10.4 [facility] Comment on above: Performed By: #### H EMDF, PT, BMP3M, PHOS3, MG3, CK3 #### [facility] [address] [place], [place] #### VD25H #### [facility] [facility] [address] [place] [address] CO2 molar conc 33 mmol/L High 22-30 [facility] Comment on above: Performed By: #### H EMDF, PT, BMP3M, PHOS3, MG3, CK3 #### [address] #### VD25H #### [facility] [address] [place] [address] Glucose mass conc 139 mg/dL High 70-100 [facility] Comment on above: Performed By: #### H EMDF, PT, BMP3M, PHOS3, MG3, CK3 #### [facility] [address] [place], [place] #### VD25H #### [facility] [address] [place] [address] Urea nitrogen mass conc 10 mg/dL Normal 7-20 [facility] Comment on above: Performed By: #### H EMDF, PT, BMP3M, PHOS3, MG3, CK3 #### [address] #### VD25H #### [facility] [address] [place] [address] Creatinine mass conc 0.57 mg/dL Normal 0.52-1.25 [facility] Comment on above: Performed By: #### H EMDF, PT, BMP3M, PHOS3, MG3, CK3 #### [address] #### VD25H #### [facility] [address] [facility] [place] [address] GFR/1.73 sq M predicted among blacks MDRD vol rate/area (S/P/Bld) mL/min/{1.73_m2} Normal >60 [facility] Comment on above: Performed By: #### H EMDF, PT, BMP3M, PHOS3, MG3, CK3 #### [address] #### VD25H #### [facility] [address] [facility] [place] [address] GFR/1.73 sq M predicted among non-blacks MDRD vol rate/area (S/P/Bld) mL/min/{1.73_m2} Normal >60 [facility] Comment on above: Result Comment: Sour ce- MDRD equation with creatinine calibration to IDMS(NKDEP) eGFR not recommended for drug dose adjustment Performed By: #### H EMDF, PT, BMP3M, PHOS3, MG3, CK3 #### [facility] [address] [place], [place] #### VD25H #### [facility] [address] [place] [address] Potassium molar conc 3.4 mmol/L Low 3.5-5.1 [facility] Comment on above: Performed By: #### H EMDF, PT, BMP3M, PHOS3, MG3, CK3 #### [facility] [address] [place], [place] #### VD25H #### [facility] [address] [place] [address] Chloride molar conc 104 mmol/L Normal 98-107 [facility] Comment on above: Performed By: #### H EMDF, PT, BMP3M, PHOS3, MG3, CK3 #### [facility] [address] [place], [place] #### VD25H #### [facility] [address] [place] [address] Sodium molar conc 138 mmol/L Normal 135-145 [facility] Comment on above: Performed By: #### H EMDF, PT, BMP3M, PHOS3, MG3, CK3 #### [facility] [address] [place], [place] #### VD25H #### [facility] [address] [place] [address] CULT./ST. BACTERIAon 019 CULT./ST. BACTERIA STAIN GRAM [...] 0.12 S Vancomycin(CHRISTI) = 1 S Normal [facility] Comment on above: Order Comment: or co llected Performed By: #### H EMDF, PT, BMP3M, PHOS3, MG3, CK3 #### [facility] [address] [place] [id number] #### VD25H #### [facility] [address] [place] [address] Basic Metabolic Panelon 07-31 Calcium mass conc 7.8 mg/dL Low 8.4-10.4 [facility] Comment on above: Performed By: #### H EMDF, PT, BMP3M, PHOS3, MG3, CK3 #### [facility] [address] [place] [address] #### VD25H #### [facility] [address] [place] [address] Glucose mass conc 104 mg/dL High 70-100 [facility] Comment on above: Performed By: #### H EMDF, PT, BMP3M, PHOS3, MG3, CK3 #### [place] [address] [place], [place] #### VD25H #### [facility] [address] [place] [address] Urea nitrogen mass conc 12 mg/dL Normal 7-20 [facility] Comment on above: Performed By: #### H EMDF, PT, BMP3M, PHOS3, MG3, CK3 #### [place] [address] [place], [place] #### VD25H #### [place] [address] [place] [address] Anion gap molar conc 5 Normal [facility] Comment on above: Performed By: #### H EMDF, PT, BMP3M, PHOS3, MG3, CK3 #### [place] [address] [facility], [place] #### VD25H #### [facility] [address] [place] [address] CO2 molar conc 26 mmol/L Normal 22-30 [facility] Comment on above: Performed By: #### H EMDF, PT, BMP3M, PHOS3, MG3, CK3 #### [place] [address] [facility], [place] #### VD25H #### [facility] [address] [place] [address] Creatinine mass conc 0.61 mg/dL Normal 0.52-1.25 [facility] Comment on above: Performed By: #### H EMDF, PT, BMP3M, PHOS3, MG3, CK3 #### [place] [address] [facility], [place] #### VD25H #### [facility] [address] [place] [address] GFR/1.73 sq M predicted among blacks MDRD vol rate/area (S/P/Bld) mL/min/{1.73_m2} Normal >60 [facility] Comment on above: Performed By: #### H EMDF, PT, BMP3M, PHOS3, MG3, CK3 #### [address] #### VD25H #### [facility] [address] [place] [address] GFR/1.73 sq M predicted among non-blacks MDRD vol rate/area (S/P/Bld) mL/min/{1.73_m2} Normal >60 [facility] Comment on above: Result Comment: Sour ce- MDRD equation with creatinine calibration to IDMS(NKDEP) eGFR not recommended for drug dose adjustment Performed By: #### H EMDF, PT, BMP3M, PHOS3, MG3, CK3 #### [address] #### VD25H #### [facility] [address] [place] [address] Chloride molar conc 107 mmol/L Normal 98-107 [facility] Comment on above: Performed By: #### H EMDF, PT, BMP3M, PHOS3, MG3, CK3 #### [address] #### VD25H #### [facility] [address] [place] [address] Potassium molar conc 3.4 mmol/L Low 3.5-5.1 [facility] Comment on above: Performed By: #### H EMDF, PT, BMP3M, PHOS3, MG3, CK3 #### [address] #### VD25H #### [facility] [address] [place] [address] Sodium molar conc 138 mmol/L Normal 135-145 [facility] Comment on above: Performed By: #### H EMDF, PT, BMP3M, PHOS3, MG3, CK3 #### [address] #### VD25H #### [facility] [address] [place] [address] Glucose,Bedsideon 08-18-2018 Glucose mass conc 113 mg/dL High 70-100 [facility] Comment on above: Result Comment: Test performed by glucose meter. Results may be 10%-15% lower than serum/plasma values. (CLIA ID [id number]) Performed By: #### H EMDF, PT, BMP3M, PHOS3, MG3, CK3 #### [address] #### VD25H #### [facility] [address] [place] [address] Hemogram w/ Autodiffon 08-18 Erythrocyte distribution width Ratio (RBC) 14.4 % Normal 11.5-14.5 [facility] Comment on above: Performed By: #### H EMDF, PT, BMP3M, PHOS3, MG3, CK3 #### [address] #### VD25H #### [facility] [address] [place] [address] Hematocrit Volume Fraction (Bld) 29.3 % Low 40.0-52.0 [facility] Comment on above: Performed By: #### H EMDF, PT, BMP3M, PHOS3, MG3, CK3 #### [address] #### VD25H #### [facility] [address] [place] [address] Hemoglobin mass conc (Bld) 9.8 g/dL Low 13.0-18.0 [facility] Comment on above: Performed By: #### H EMDF, PT, BMP3M, PHOS3, MG3, CK3 #### [address] #### VD25H #### [facility] [address] [place] [address] MCH Entitic mass (RBC) 28.0 pg Normal 26.0-34.0 [facility] Comment on above: Performed By: #### H EMDF, PT, BMP3M, PHOS3, MG3, CK3 #### [address] #### VD25H #### [facility] [address] [place] [address] MCHC mass conc (RBC) 33.4 % Normal 32.0-36.0 [facility] Comment on above: Performed By: #### H EMDF, PT, BMP3M, PHOS3, MG3, CK3 #### [address] #### VD25H #### [place] [address] [place] [address] MCV Entitic volume (RBC) 84.1 fL Normal 80.0-98.0 [facility] Comment on above: Performed By: #### H EMDF, PT, BMP3M, PHOS3, MG3, CK3 #### [address] #### VD25H #### [place] [address] [place] [address] Platelet mean volume Entitic volume (Bld) 7.9 fL Normal 7.4-10.4 [facility] Comment on above: Performed By: #### H EMDF, PT, BMP3M, PHOS3, MG3, CK3 #### [address] #### VD25H #### [place] [address] [place] [address] Platelets #/vol (Bld) 301 10*3/uL Normal 140-440 [facility] Comment on above: Performed By: #### H EMDF, PT, BMP3M, PHOS3, MG3, CK3 #### [address] #### VD25H #### [facility] [address] [place] [address] RBC #/vol (Bld) 3.49 10*6/uL Low 4.40-5.90 [facility] Comment on above: Performed By: #### H EMDF, PT, BMP3M, PHOS3, MG3, CK3 #### [address] [place], [place] #### VD25H #### [facility] [address] [place] [address] WBC #/vol (Bld) 8.3 10*3/uL Normal 3.6-10.7 [facility] Comment on above: Performed By: #### H EMDF, PT, BMP3M, PHOS3, MG3, CK3 #### [address] #### VD25H #### [facility] [address] [place] [address] Magnesiumon 08-18-2018 Magnesium mass conc 2.0 mg/dL Normal 1.6-2.3 [facility] Comment on above: Performed By: #### H EMDF, PT, BMP3M, PHOS3, MG3, CK3 #### [address] #### VD25H #### [facility] [address] [place] [address] Manual Diffon 08-18-2018 Abs Neutrophile Cnt 5.1 10*3/uL Normal 2.2-8.2 [facility] Comment on above: Performed By: #### H EMDF, PT, BMP3M, PHOS3, MG3, CK3 #### [address] #### VD25H #### [facility] [address] [place] [address] Bands 3 % Normal 0-3 [facility] Comment on above: Performed By: #### H EMDF, PT, BMP3M, PHOS3, MG3, CK3 #### [facility] [address] [place], [place] #### VD25H #### [facility] [address] [place] [address] Eosinophils #/vol (Bld) 0.2 10*3/uL Normal 0.0-0.5 [facility] Comment on above: Performed By: #### H EMDF, PT, BMP3M, PHOS3, MG3, CK3 #### [facility] [address] [place], [place] #### VD25H #### [facility] [address] [place] [address] Eosinophils/100 WBC (Bld) 2 % Normal 1-6 [facility] Comment on above: Performed By: #### H EMDF, PT, BMP3M, PHOS3, MG3, CK3 #### [address] #### VD25H #### [facility] [address] [place] [address] Lymphocytes #/vol (Bld) 2.1 10*3/uL Normal 1.1-4.5 [facility] Comment on above: Performed By: #### H EMDF, PT, BMP3M, PHOS3, MG3, CK3 #### [address] #### VD25H #### [facility] [address] [place] [address] Lymphocytes/100 WBC (Bld) 25 % Normal 20-40 [facility] Comment on above: Performed By: #### H EMDF, PT, BMP3M, PHOS3, MG3, CK3 #### [address] #### VD25H #### [facility] [address] [place] [address] Metamyelocytes 1 % Abnormal <1 [facility] Comment on above: Performed By: #### H EMDF, PT, BMP3M, PHOS3, MG3, CK3 #### [facility] [address] [place], [place] #### VD25H #### [facility] [address] [place] [address] Monocytes #/vol (Bld) 0.6 10*3/uL Normal 0.2-1.1 [facility] Comment on above: Performed By: #### H EMDF, PT, BMP3M, PHOS3, MG3, CK3 #### [place] [address] [place], [place] #### VD25H #### [facility] [address] [place] [address] Monocytes/100 WBC (Bld) 7 % Normal 2-10 [facility] Comment on above: Performed By: #### H EMDF, PT, BMP3M, PHOS3, MG3, CK3 #### [place] [address] [place], [place] #### VD25H #### [facility] [address] [place] [address] Myelocytes 1 % Abnormal <1 [facility] Comment on above: Performed By: #### H EMDF, PT, BMP3M, PHOS3, MG3, CK3 #### [place] [address] [place], [place] #### VD25H #### [facility] [address] [place] [address] Protein mass conc 2 % Abnormal <1 [facility] Comment on above: Performed By: #### H EMDF, PT, BMP3M, PHOS3, MG3, CK3 #### [place] [address] [facility], [place] #### VD25H #### [facility] [address] [place] [address] RBC morphology finding Nom (Bld) See Prev Normal [facility] Comment on above: Performed By: #### H EMDF, PT, BMP3M, PHOS3, MG3, CK3 #### [place] [address] [place] #### VD25H #### [facility] [address] [place] [address] Seg Neutrophils 59 % Normal 40-[address] [facility] Comment on above: Performed By: #### H EMDF, PT, BMP3M, PHOS3, MG3, CK3 #### [place] [address] [place], [place] #### VD25H #### [facility] [address] [place] [address] Abs Baso Cnt 0.0 10*3/uL Normal 0.0-0.2 [facility] Comment on above: Performed By: #### H EMDF, PT, BMP3M, PHOS3, MG3, CK3 #### [address] #### VD25H #### [place] [address] [place] [address] Basophils/100 WBC (Bld) 0 % Normal 0-2 [facility] Comment on above: Performed By: #### H EMDF, PT, BMP3M, PHOS3, MG3, CK3 #### [address] #### VD25H #### [facility] [address] [place] [address] Cells counted 100 Normal [facility] Comment on above: Performed By: #### H EMDF, PT, BMP3M, PHOS3, MG3, CK3 #### [address] #### VD25H #### [facility] [address] [place] [address] Phosphoruson 08-18-2018 Phosphate mass conc 4.6 mg/dL High 2.5-4.5 [facility] Comment on above: Performed By: #### H EMDF, PT, BMP3M, PHOS3, MG3, CK3 #### [address] #### VD25H #### [place] [address] [place] [address] Basic Metabolic Panelon 07-30 Calcium mass conc 7.7 mg/dL Low 8.4-10.4 [facility] Comment on above: Performed By: #### H EMDF, PT, BMP3M, PHOS3, MG3, CK3 #### [address] #### VD25H #### [facility] [address] [place] [address] Anion gap molar conc 7 Normal [facility] Comment on above: Performed By: #### H EMDF, PT, BMP3M, PHOS3, MG3, CK3 #### [address] #### VD25H #### [place] [address] [place] [address] CO2 molar conc 25 mmol/L Normal 22-30 [facility] Comment on above: Performed By: #### H EMDF, PT, BMP3M, PHOS3, MG3, CK3 #### [address] #### VD25H #### [place] [address] [place] [address] Creatinine mass conc 0.59 mg/dL Normal 0.52-1.25 [facility] Comment on above: Performed By: #### H EMDF, PT, BMP3M, PHOS3, MG3, CK3 #### [address] #### VD25H #### [place] [address] [place] [address] GFR/1.73 sq M predicted among blacks MDRD vol rate/area (S/P/Bld) mL/min/{1.73_m2} Normal >60 [facility] Comment on above: Performed By: #### H EMDF, PT, BMP3M, PHOS3, MG3, CK3 #### [address] #### VD25H #### [facility] [address] [place] [address] GFR/1.73 sq M predicted among non-blacks MDRD vol rate/area (S/P/Bld) mL/min/{1.73_m2} Normal >60 [facility] Comment on above: Result Comment: Sour ce- MDRD equation with creatinine calibration to IDMS(NKDEP) eGFR not recommended for drug dose adjustment Performed By: #### H EMDF, PT, BMP3M, PHOS3, MG3, CK3 #### [place] [address] [place], [place] #### VD25H #### [facility] [address] [place] [address] Glucose mass conc 116 mg/dL High 70-100 [facility] Comment on above: Performed By: #### H EMDF, PT, BMP3M, PHOS3, MG3, CK3 #### [place] [address] [place], [place] #### VD25H #### [facility] [address] [place] [address] Urea nitrogen mass conc 12 mg/dL Normal 7-20 [facility] Comment on above: Performed By: #### H EMDF, PT, BMP3M, PHOS3, MG3, CK3 #### [place] [address] [place], [place] #### VD25H #### [facility] [address] [place] [address] Potassium molar conc 3.2 mmol/L Low 3.5-5.1 [facility] Comment on above: Performed By: #### H EMDF, PT, BMP3M, PHOS3, MG3, CK3 #### [facility] [address] [place], [place] #### VD25H #### [facility] [address] [place] [address] Sodium molar conc 138 mmol/L Normal 135-145 [facility] Comment on above: Performed By: #### H EMDF, PT, BMP3M, PHOS3, MG3, CK3 #### [facility] [address] [place] [address] #### VD25H #### [facility] [address] [place] [address] Chloride molar conc 106 mmol/L Normal 98-107 [facility] Comment on above: Performed By: #### H EMDF, PT, BMP3M, PHOS3, MG3, CK3 #### [facility] [address] [place] [address] #### VD25H #### [facility] [address] [place] [address] CR Chest Portableon 08-18-19 CR Chest Portable Patient Name: KATHYA HOOPER Diagnostic Radiology Exam Date/Time 08/17/2018 17:54:46 EDT Exam CR Chest Portable Ordering Physician SALO DAVIS Accession Number [id number] CPT4 Codes 94290 () Reason For Exam line placement Report [...] Transcribed Date and Time: 08/17/2018 6:05 Normal [facility] CR Chest Portable Patient Name: KATHYA HOOPER Diagnostic Radiology Exam Date/Time 08/17/2018 06:11:03 EDT Exam CR Chest Portable Ordering Physician ETIENNE VELÁSQUEZKATHYA Accession Number [id number] CPT4 Codes 48500 () Reason For Exam follow left pleural [...] Transcribed Date and Time: 08/17/2018 7:16 Normal [facility] Ferritinon 08-17-2018 Ferritin mass conc 1100 ng/mL High 18-464 [facility] Comment on above: Performed By: #### H EMDF, PT, BMP3M, PHOS3, MG3, CK3 #### [address] [id number] #### VD25H #### [facility] [address] [place] [address] Folateon 08-17-2018 Folate 15.1 ng/mL Normal 2.8-20.0 [facility] Comment on above: Performed By: #### H EMDF, PT, BMP3M, PHOS3, MG3, CK3 #### [facility] [address] [place] [address] #### VD25H #### [facility] [address] [place] [address] Glucose,Bedsideon 08-17-2018 Glucose mass conc 133 mg/dL High 70-100 [facility] Comment on above: Result Comment: Test performed by glucose meter. Results may be 10%-15% lower than serum/plasma values. (CLIA ID [id number]) Performed By: #### H EMDF, PT, BMP3M, PHOS3, MG3, CK3 #### [facility] [address] [place], [place] #### VD25H #### [facility] [address] [place] [address] Hemoglobin A1Con 08-17-2018 Hemoglobin A1c/Hemoglobin.total mass fraction (Bld) 117 mg/dL Normal [facility] Comment on above: Performed By: #### H EMDF, PT, BMP3M, PHOS3, MG3, CK3 #### [address] #### VD25H #### [facility] [address] [place], [place] Hemoglobin A1c/Hemoglobin.total mass fraction (Bld) 5.7 % Normal 4.0-5.7 [facility] Comment on above: Result Comment: --Hg bA1C levels may not be accurate in patients who have renal disease, received recent blood transfusions, are anemic, or who have dyshemoglobinemia. Performed By: #### H EMDF, PT, BMP3M, PHOS3, MG3, CK3 #### [address] #### VD25H #### [facility] [address] [place] [address] Hemogram w/ Autodiffon 08-17 Erythrocyte distribution width Ratio (RBC) 14.3 % Normal 11.5-14.5 [facility] Comment on above: Performed By: #### H EMDF, PT, BMP3M, PHOS3, MG3, CK3 #### [address] #### VD25H #### [facility] [address] [place] [address] Hematocrit Volume Fraction (Bld) 29.1 % Low 40.0-52.0 [facility] Comment on above: Performed By: #### H EMDF, PT, BMP3M, PHOS3, MG3, CK3 #### [place] [address] [place], [place] #### VD25H #### [facility] [address] [place] [address] Hemoglobin mass conc (Bld) 9.8 g/dL Low 13.0-18.0 [facility] Comment on above: Performed By: #### H EMDF, PT, BMP3M, PHOS3, MG3, CK3 #### [place] [address] [place], [place] #### VD25H #### [facility] [address] [place] [address] MCH Entitic mass (RBC) 28.4 pg Normal 26.0-34.0 [facility] Comment on above: Performed By: #### H EMDF, PT, BMP3M, PHOS3, MG3, CK3 #### [place] [address] [place], [place] #### VD25H #### [facility] [address] [place] [address] MCHC mass conc (RBC) 33.5 % Normal 32.0-36.0 [facility] Comment on above: Performed By: #### H EMDF, PT, BMP3M, PHOS3, MG3, CK3 #### [address] #### VD25H #### [facility] [address] [place] [address] MCV Entitic volume (RBC) 84.7 fL Normal 80.0-98.0 [facility] Comment on above: Performed By: #### H EMDF, PT, BMP3M, PHOS3, MG3, CK3 #### [address] #### VD25H #### [facility] [address] [place] [address] Platelet mean volume Entitic volume (Bld) 8.1 fL Normal 7.4-10.4 [facility] Comment on above: Performed By: #### H EMDF, PT, BMP3M, PHOS3, MG3, CK3 #### [address] #### VD25H #### [facility] [address] [place] [address] Platelets #/vol (Bld) 281 10*3/uL Normal 140-440 [facility] Comment on above: Performed By: #### H EMDF, PT, BMP3M, PHOS3, MG3, CK3 #### [address] #### VD25H #### [facility] [address] [place] [address] RBC #/vol (Bld) 3.44 10*6/uL Low 4.40-5.90 [facility] Comment on above: Performed By: #### H EMDF, PT, BMP3M, PHOS3, MG3, CK3 #### [address] #### VD25H #### [facility] [address] [place] [address] WBC #/vol (Bld) 8.3 10*3/uL Normal 3.6-10.7 [facility] Comment on above: Performed By: #### H EMDF, PT, BMP3M, PHOS3, MG3, CK3 #### [address] #### VD25H #### [facility] [address] [place] [address] Hep B Surface Abon 9 Hep B Surface Ab < 8.0 Normal [facility] Comment on above: Result Comment: Inte rpretation: <8.0 Non-Reactive 8.0-11.9 Equivocal >= 12.0 Ab Detected Performed By: #### H EMDF, PT, BMP3M, PHOS3, MG3, CK3 #### [address] #### VD25H #### [facility] [address] [place] [address] Hep B Surface Agon 9 Hep B Surface Ag NOT DETECTED Normal Not-Detected [facility] Comment on above: Performed By: #### H EMDF, PT, BMP3M, PHOS3, MG3, CK3 #### [facility] [address] [place], [place] #### VD25H #### [facility] [address] [place] [address] Hep C Antibodyon 08-17-2018 Hep C Antibody NOT DETECTED Normal Not-Detected [facility] Comment on above: Result Comment: Bharti ents with DETECTED Hepatitis C Ab results should have a new specimen submitted for supplemental testing with a Hepatitis C Quantitative RNA assay (viral load), if clinically indicated. Performed By: #### H EMDF, PT, BMP3M, PHOS3, MG3, CK3 #### [address] [place], [place] #### VD25H #### [facility] [address] [place] [address] Hepatic Functionon 9 ALP enzyme act/vol 116 U/L Normal 38-126 [facility] Comment on above: Performed By: #### H EMDF, PT, BMP3M, PHOS3, MG3, CK3 #### [facility] [address] [place], [place] #### VD25H #### [facility] [address] [place] [address] ALT enzyme act/vol 370 U/L High 13-69 [facility] Comment on above: Performed By: #### H EMDF, PT, BMP3M, PHOS3, MG3, CK3 #### [facility] [address] [place], [place] #### VD25H #### [facility] [address] [place] [address] AST enzyme act/vol 150 U/L High 15-46 [facility] Comment on above: Performed By: #### H EMDF, PT, BMP3M, PHOS3, MG3, CK3 #### [facility] [address] [place], [place] #### VD25H #### [facility] [address] [place] [address] Bilirubin mass conc 0.7 mg/dL Normal 0.2-1.3 [facility] Comment on above: Performed By: #### H EMDF, PT, BMP3M, PHOS3, MG3, CK3 #### [address] [place], [place] #### VD25H #### [facility] [address] [place] [address] Bilirubin.direct mass conc 0.0 mg/dL Normal 0.0-0.3 [facility] Comment on above: Performed By: #### H EMDF, PT, BMP3M, PHOS3, MG3, CK3 #### [address] #### VD25H #### [facility] [address] [place] [address] Protein mass conc 5.4 g/dL Low 6.3-8.2 [facility] Comment on above: Performed By: #### H EMDF, PT, BMP3M, PHOS3, MG3, CK3 #### [address] #### VD25H #### [facility] [address] [place] [address] Albumin mass conc 2.5 g/dL Low 3.5-5.0 [facility] Comment on above: Performed By: #### H EMDF, PT, BMP3M, PHOS3, MG3, CK3 #### [address] #### VD25H #### [facility] [address] [place] [address] Iron AND TIBCon 08-17-2018 Saturation 14 % Low 15-50 [facility] Comment on above: Performed By: #### H EMDF, PT, BMP3M, PHOS3, MG3, CK3 #### [address] [place], [place] #### VD25H #### [facility] [address] [place] [address] Total Iron Binding Cap. 166 ug/dL Low 261-497 [facility] Comment on above: Performed By: #### H EMDF, PT, BMP3M, PHOS3, MG3, CK3 #### [address] [place], [place] #### VD25H #### [facility] [address] [place] [address] Iron, Total 23 ug/dL Low 49-181 [facility] Comment on above: Performed By: #### H EMDF, PT, BMP3M, PHOS3, MG3, CK3 #### [address] #### VD25H #### [facility] [address] [place] [address] Magnesiumon 08-17-2018 Magnesium mass conc 2.0 mg/dL Normal 1.6-2.3 [facility] Comment on above: Performed By: #### H EMDF, PT, BMP3M, PHOS3, MG3, CK3 #### [address] #### VD25H #### [facility] [address] [place] [address] Manual Diffon 08-17-2018 Abs Baso Cnt 0.1 10*3/uL Normal 0.0-0.2 [facility] Comment on above: Performed By: #### H EMDF, PT, BMP3M, PHOS3, MG3, CK3 #### [address] [place], [place] #### VD25H #### [facility] [address] [place] [address] Abs Neutrophile Cnt 5.6 10*3/uL Normal 2.2-8.2 [facility] Comment on above: Performed By: #### H EMDF, PT, BMP3M, PHOS3, MG3, CK3 #### [facility] [address] [place], [place] #### VD25H #### [facility] [address] [place] [address] Anisocytosis Ql (Bld) Slight Normal [facility] Comment on above: Performed By: #### H EMDF, PT, BMP3M, PHOS3, MG3, CK3 #### [facility] [address] [place], [place] #### VD25H #### [facility] [address] [place] [address] Bands 9 % High 0-3 [facility] Comment on above: Performed By: #### H EMDF, PT, BMP3M, PHOS3, MG3, CK3 #### [address] [place], [place] #### VD25H #### [facility] [address] [place] [address] Basophils/100 WBC (Bld) 1 % Normal 0-2 [facility] Comment on above: Performed By: #### H EMDF, PT, BMP3M, PHOS3, MG3, CK3 #### [facility] [address] [place], [place] #### VD25H #### [facility] [address] [place] [address] Eosinophils #/vol (Bld) 0.2 10*3/uL Normal 0.0-0.5 [facility] Comment on above: Performed By: #### H EMDF, PT, BMP3M, PHOS3, MG3, CK3 #### [address] [place], [place] #### VD25H #### [facility] [address] [place] [address] Eosinophils/100 WBC (Bld) 3 % Normal 1-6 [facility] Comment on above: Performed By: #### H EMDF, PT, BMP3M, PHOS3, MG3, CK3 #### [facility] [address] [place], [place] #### VD25H #### [facility] [address] [place] [address] Lymphocytes #/vol (Bld) 1.5 10*3/uL Normal 1.1-4.5 [facility] Comment on above: Performed By: #### H EMDF, PT, BMP3M, PHOS3, MG3, CK3 #### [address] [place], [place] #### VD25H #### [facility] [address] [place] [address] Lymphocytes/100 WBC (Bld) 18 % Low 20-40 [facility] Comment on above: Performed By: #### H EMDF, PT, BMP3M, PHOS3, MG3, CK3 #### [address] [address] [place], [place] #### VD25H #### [facility] [address] [place] [address] Monocytes #/vol (Bld) 0.4 10*3/uL Normal 0.2-1.1 [facility] Comment on above: Performed By: #### H EMDF, PT, BMP3M, PHOS3, MG3, CK3 #### [address] #### VD25H #### [facility] [address] [place] [address] Monocytes/100 WBC (Bld) 5 % Normal 2-10 [facility] Comment on above: Performed By: #### H EMDF, PT, BMP3M, PHOS3, MG3, CK3 #### [address] [place], [place] #### VD25H #### [facility] [address] [place] [address] Myelocytes 5 % Abnormal <1 [facility] Comment on above: Performed By: #### H EMDF, PT, BMP3M, PHOS3, MG3, CK3 #### [facility] [address] [place], [place] #### VD25H #### [facility] [address] [place] [address] Polychromasia Slight Normal [facility] Comment on above: Performed By: #### H EMDF, PT, BMP3M, PHOS3, MG3, CK3 #### [facility] [address] [facility], [place] #### VD25H #### [facility] [address] [place] [address] RBC morphology finding Nom (Bld) ABNORMAL Normal [facility] Comment on above: Performed By: #### H EMDF, PT, BMP3M, PHOS3, MG3, CK3 #### [address] [facility], [place] #### VD25H #### [facility] [address] [place] [address] Seg Neutrophils 59 % Normal 40-[address] [facility] Comment on above: Performed By: #### H EMDF, PT, BMP3M, PHOS3, MG3, CK3 #### [address] [facility], [place] #### VD25H #### [facility] [address] [place] [address] Toxic Granulation Slight Normal [facility] Comment on above: Performed By: #### H EMDF, PT, BMP3M, PHOS3, MG3, CK3 #### [address] [facility], [place] #### VD25H #### [facility] [address] [place] [address] Cells counted 100 Normal [facility] Comment on above: Performed By: #### H EMDF, PT, BMP3M, PHOS3, MG3, CK3 #### [facility] [address] [facility], [place] #### VD25H #### [facility] [address] [place] [address] Phosphoruson 08-17-2018 Phosphate mass conc 3.9 mg/dL Normal 2.5-4.5 [facility] Comment on above: Performed By: #### H EMDF, PT, BMP3M, PHOS3, MG3, CK3 #### [facility] [address] [place], [place] #### VD25H #### [facility] [address] [place] [address] Triglycerideon 08-17-2018 Triglyceride mass conc 104 mg/dL Normal <150 [facility] Comment on above: Performed By: #### H EMDF, PT, BMP3M, PHOS3, MG3, CK3 #### [address] [place], [place] #### VD25H #### [facility] [address] [place] [address] Vitamin B12on 08-17-2018 Cobalamin (Vitamin B12) mass conc 615 pg/mL Normal 239-931 [facility] Comment on above: Performed By: #### H EMDF, PT, BMP3M, PHOS3, MG3, CK3 #### [address] [address] [place], [place] #### VD25H #### [facility] [address] [place] [address] Albumin, Serumon 08-16-2018 Albumin mass conc 2.6 g/dL Low 3.5-5.0 [facility] Comment on above: Performed By: #### H EMDF, PT, BMP3M, PHOS3, MG3, CK3 #### [address] [place], [place] #### VD25H #### [facility] [address] [place] [address] CR Abdomen APon 08-16-2018 CR Abdomen AP Patient Name: KATHYA HOOPER Diagnostic Radiology Exam Date/Time 08/16/2018 10:17:24 EDT Exam CR Abdomen AP Ordering Physician [id number] ANNA Accession Number [id number] CPT4 Codes 47455 () Reason For Exam dobhoff placement Report [...] Transcribed Date and Time: 08/16/2018 12:33 Normal [facility] CR Chest Portableon 08-17-19 19 CR Chest Portable Patient Name: KATHYA HOOPER Diagnostic Radiology Exam Date/Time 08/16/2018 10:17:24 EDT Exam CR Chest Portable Ordering Physician [id number] JoesphJOEY KING Accession Number [id number] CPT4 Codes 76817 () Reason For Exam dyspnea Report PORTABLE [...] Transcribed Date and Time: 08/16/2018 12:31 Normal [facility] Comp Panel with Mg Reflexon 08-16-2018 Calcium mass conc 7.8 mg/dL Low 8.4-10.4 [facility] Comment on above: Performed By: #### H EMDF, PT, BMP3M, PHOS3, MG3, CK3 #### [facility] [address] [place], [place] #### VD25H #### [facility] [address] [place] [address] Glucose mass conc 114 mg/dL High 70-100 [facility] Comment on above: Performed By: #### H EMDF, PT, BMP3M, PHOS3, MG3, CK3 #### [address] [place], [place] #### VD25H #### [facility] [address] [place] [address] ALP enzyme act/vol 114 U/L Normal 38-126 [facility] Comment on above: Performed By: #### H EMDF, PT, BMP3M, PHOS3, MG3, CK3 #### [facility] [address] [place] [address] #### VD25H #### [facility] [address] [place] [address] ALT enzyme act/vol 539 U/L High 13-69 [facility] Comment on above: Performed By: #### H EMDF, PT, BMP3M, PHOS3, MG3, CK3 #### [facility] [address] [place], [place] #### VD25H #### [facility] [address] [place] [address] Anion gap molar conc 4 Normal [facility] Comment on above: Performed By: #### H EMDF, PT, BMP3M, PHOS3, MG3, CK3 #### [address] [place] [address] #### VD25H #### [facility] [address] [place] [address] AST enzyme act/vol 460 U/L High 15-46 [facility] Comment on above: Performed By: #### H EMDF, PT, BMP3M, PHOS3, MG3, CK3 #### [address] [place], [place] #### VD25H #### [facility] [address] [place] [address] Bilirubin mass conc 0.7 mg/dL Normal 0.2-1.3 [facility] Comment on above: Performed By: #### H EMDF, PT, BMP3M, PHOS3, MG3, CK3 #### [address] [place], [place] #### VD25H #### [facility] [address] [place] [address] CO2 molar conc 25 mmol/L Normal 22-30 [facility] Comment on above: Performed By: #### H EMDF, PT, BMP3M, PHOS3, MG3, CK3 #### [address] [place], [place] #### VD25H #### [facility] [address] [place] [address] Creatinine mass conc 0.71 mg/dL Normal 0.52-1.25 [facility] Comment on above: Performed By: #### H EMDF, PT, BMP3M, PHOS3, MG3, CK3 #### [address] [place] [address] #### VD25H #### [facility] [address] [place] [address] GFR/1.73 sq M predicted among blacks MDRD vol rate/area (S/P/Bld) mL/min/{1.73_m2} Normal >60 [facility] Comment on above: Performed By: #### H EMDF, PT, BMP3M, PHOS3, MG3, CK3 #### [facility] [address] [facility], [place] #### VD25H #### [facility] [address] [place] [address] GFR/1.73 sq M predicted among non-blacks MDRD vol rate/area (S/P/Bld) mL/min/{1.73_m2} Normal >60 [facility] Comment on above: Result Comment: Sour ce- MDRD equation with creatinine calibration to IDMS(NKDEP) eGFR not recommended for drug dose adjustment Performed By: #### H EMDF, PT, BMP3M, PHOS3, MG3, CK3 #### [address] [facility], [place] #### VD25H #### [facility] [address] [place] [address] Protein mass conc 5.1 g/dL Low 6.3-8.2 [facility] Comment on above: Performed By: #### H EMDF, PT, BMP3M, PHOS3, MG3, CK3 #### [address] [facility] #### VD25H #### [facility] [address] [place] [address] Urea nitrogen mass conc 22 mg/dL High 7-20 [facility] Comment on above: Performed By: #### H EMDF, PT, BMP3M, PHOS3, MG3, CK3 #### [facility] [address] [facility], [place] #### VD25H #### [facility] [address] [place] [address] Chloride molar conc 102 mmol/L Normal 98-107 [facility] Comment on above: Performed By: #### H EMDF, PT, BMP3M, PHOS3, MG3, CK3 #### [address] [facility] #### VD25H #### [facility] [address] [place] [address] Potassium molar conc 3.1 mmol/L Low 3.5-5.1 [facility] Comment on above: Performed By: #### H EMDF, PT, BMP3M, PHOS3, MG3, CK3 #### [facility] [address] [place], [place] #### VD25H #### [facility] [address] [place] [address] Sodium molar conc 131 mmol/L Low 135-145 [facility] Comment on above: Performed By: #### H EMDF, PT, BMP3M, PHOS3, MG3, CK3 #### [facility] [address] [place], [place] #### VD25H #### [facility] [address] [place] [address] Albumin mass conc 2.4 g/dL Low 3.5-5.0 [facility] Comment on above: Performed By: #### H EMDF, PT, BMP3M, PHOS3, MG3, CK3 #### [address] #### VD25H #### [facility] [address] [place] [address] Glucose,Bedsideon 08-16-2018 Glucose mass conc 100 mg/dL Normal 70-100 [facility] Comment on above: Result Comment: Test performed by glucose meter. Results may be 10%-15% lower than serum/plasma values. (CLIA ID [id number]) Performed By: #### H EMDF, PT, BMP3M, PHOS3, MG3, CK3 #### [facility] [place] [address] #### VD25H #### [facility] [address] [place] [address] Glucose mass conc 98 mg/dL Normal 70-100 [facility] Comment on above: Result Comment: Test performed by glucose meter. Results may be 10%-15% lower than serum/plasma values. (CLIA ID [id number]) Performed By: #### H EMDF, PT, BMP3M, PHOS3, MG3, CK3 #### [facility] [address] #### VD25H #### [facility] [address] [place] [address] Glucose mass conc 110 mg/dL High 70-100 [facility] Comment on above: Result Comment: Test performed by glucose meter. Results may be 10%-15% lower than serum/plasma values. (CLIA ID [id number]) Performed By: #### H EMDF, PT, BMP3M, PHOS3, MG3, CK3 #### [address] #### VD25H #### [address] [place] [address] Glucose mass conc 113 mg/dL High 70-100 [facility] Comment on above: Result Comment: Test performed by glucose meter. Results may be 10%-15% lower than serum/plasma values. (CLIA ID [id number]) Performed By: #### H EMDF, PT, BMP3M, PHOS3, MG3, CK3 #### [facility] [address] #### VD25H #### [facility] [address] [place] [address] Glucose mass conc 126 mg/dL High 70-100 [facility] Comment on above: Result Comment: Test performed by glucose meter. Results may be 10%-15% lower than serum/plasma values. (CLIA ID [id number]) Performed By: #### H EMDF, PT, BMP3M, PHOS3, MG3, CK3 #### [address] #### VD25H #### [facility] [address] [place] [address] Hemogram w/ Autodiffon 08-16 Abs Baso Cnt 0.0 10*3/uL Normal 0.0-0.2 [facility] Comment on above: Performed By: #### H EMDF, PT, BMP3M, PHOS3, MG3, CK3 #### [address] [place], [place] #### VD25H #### [facility] [address] [place] [address] Abs Neutrophile Cnt 7.7 10*3/uL High 1.8-7.0 [facility] Comment on above: Performed By: #### H EMDF, PT, BMP3M, PHOS3, MG3, CK3 #### [address] [place], [place] #### VD25H #### [facility] [address] [place] [address] Basophils/100 WBC (Bld) 0.5 % Normal 0.0-2.0 [facility] Comment on above: Performed By: #### H EMDF, PT, BMP3M, PHOS3, MG3, CK3 #### [address] #### VD25H #### [facility] [address] [place] [address] Eosinophils #/vol (Bld) 0.1 10*3/uL Normal 0.0-0.5 [facility] Comment on above: Performed By: #### H EMDF, PT, BMP3M, PHOS3, MG3, CK3 #### [address] #### VD25H #### [facility] [address] [place] [address] Eosinophils/100 WBC (Bld) 1.5 % Normal 1.0-6.0 [facility] Comment on above: Performed By: #### H EMDF, PT, BMP3M, PHOS3, MG3, CK3 #### [address] #### VD25H #### [facility] [address] [place] [address] Erythrocyte distribution width Ratio (RBC) 14.4 % Normal 11.5-14.5 [facility] Comment on above: Performed By: #### H EMDF, PT, BMP3M, PHOS3, MG3, CK3 #### [facility] [address] [place], [place] #### VD25H #### [facility] [address] [place] [address] Granulocytes/100 WBC (Bld) 79.7 % Normal 40.0-80.0 [facility] Comment on above: Performed By: #### H EMDF, PT, BMP3M, PHOS3, MG3, CK3 #### [address] #### VD25H #### [facility] [address] [place] [address] Hematocrit Volume Fraction (Bld) 27.1 % Low 40.0-52.0 [facility] Comment on above: Performed By: #### H EMDF, PT, BMP3M, PHOS3, MG3, CK3 #### [address] #### VD25H #### [facility] [address] [place] [address] Hemoglobin mass conc (Bld) 9.2 g/dL Low 13.0-18.0 [facility] Comment on above: Performed By: #### H EMDF, PT, BMP3M, PHOS3, MG3, CK3 #### [address] #### VD25H #### [facility] [address] [place] [address] Lymphocytes #/vol (Bld) 1.0 10*3/uL Normal 1.0-4.3 [facility] Comment on above: Performed By: #### H EMDF, PT, BMP3M, PHOS3, MG3, CK3 #### [address] #### VD25H #### [facility] [address] [place] [address] Lymphocytes/100 WBC (Bld) 10.0 % Low 20.0-40.0 [facility] Comment on above: Performed By: #### H EMDF, PT, BMP3M, PHOS3, MG3, CK3 #### [address] [place], [place] #### VD25H #### [facility] [address] [place] [address] MCH Entitic mass (RBC) 28.5 pg Normal 26.0-34.0 [facility] Comment on above: Performed By: #### H EMDF, PT, BMP3M, PHOS3, MG3, CK3 #### [address] #### VD25H #### [facility] [address] [place] [address] MCHC mass conc (RBC) 33.8 % Normal 32.0-36.0 [facility] Comment on above: Performed By: #### H EMDF, PT, BMP3M, PHOS3, MG3, CK3 #### [address] #### VD25H #### [facility] [address] [place] [address] MCV Entitic volume (RBC) 84.4 fL Normal 80.0-98.0 [facility] Comment on above: Performed By: #### H EMDF, PT, BMP3M, PHOS3, MG3, CK3 #### [address] #### VD25H #### [facility] [address] [place] [address] Monocytes #/vol (Bld) 0.8 10*3/uL Normal 0.0-0.8 [facility] Comment on above: Performed By: #### H EMDF, PT, BMP3M, PHOS3, MG3, CK3 #### [address] #### VD25H #### [facility] [address] [place] [address] Monocytes/100 WBC (Bld) 8.3 % Normal 2.0-10.0 [facility] Comment on above: Performed By: #### H EMDF, PT, BMP3M, PHOS3, MG3, CK3 #### [facility] [address] [place], [place] #### VD25H #### [facility] [address] [place] [address] Platelet mean volume Entitic volume (Bld) 8.4 fL Normal 7.4-10.4 [facility] Comment on above: Performed By: #### H EMDF, PT, BMP3M, PHOS3, MG3, CK3 #### [address] [address] [place], [place] #### VD25H #### [facility] [address] [place] [address] Platelets #/vol (Bld) 245 10*3/uL Normal 140-440 [facility] Comment on above: Performed By: #### H EMDF, PT, BMP3M, PHOS3, MG3, CK3 #### [address] #### VD25H #### [facility] [address] [place] [address] RBC #/vol (Bld) 3.21 10*6/uL Low 4.40-5.90 [facility] Comment on above: Performed By: #### H EMDF, PT, BMP3M, PHOS3, MG3, CK3 #### [address] [place], [place] #### VD25H #### [facility] [address] [place] [address] WBC #/vol (Bld) 9.7 10*3/uL Normal 3.6-10.7 [facility] Comment on above: Performed By: #### H EMDF, PT, BMP3M, PHOS3, MG3, CK3 #### [address] #### VD25H #### [facility] [address] [place] [address] Magnesiumon 08-16-2018 Magnesium mass conc 2.1 mg/dL Normal 1.6-2.3 [facility] Comment on above: Performed By: #### H EMDF, PT, BMP3M, PHOS3, MG3, CK3 #### [address] #### VD25H #### [facility] [address] [place] [address] Phosphoruson 08-16-2018 Phosphate mass conc 4.4 mg/dL Normal 2.5-4.5 [facility] Comment on above: Performed By: #### H EMDF, PT, BMP3M, PHOS3, MG3, CK3 #### [address] #### VD25H #### [place] [address] [place] [address] Potassiumon 08-16-2018 Potassium molar conc 3.5 mmol/L Normal 3.5-5.1 [facility] Comment on above: Performed By: #### H EMDF, PT, BMP3M, PHOS3, MG3, CK3 #### [address] #### VD25H #### [place] [address] [place] [address] Procalcitoninon 08-16-2018 Protein mass conc 3.10 ng/mL Abnormal <0.10 [facility] Comment on above: Performed By: #### H EMDF, PT, BMP3M, PHOS3, MG3, CK3 #### [address] #### VD25H #### [facility] [address] [place] [address] Prothrombin Timeon 9 INR Coag RelTime (PPP) 1.1 Normal 0.9-1.1 [facility] Comment on above: Result Comment: Yefri [...] EMDF, PT, BMP3M, PHOS3, MG3, CK3 #### [facility] [address] [place] [address] #### VD25H #### [employer] [address] [place] [address] Prothrombin time (PT) Coag time (PPP) 11.8 s Normal 9.0-12.0 [facility] Comment on above: Result Comment: . Performed By: #### H EMDF, PT, BMP3M, PHOS3, MG3, CK3 #### [employer] [address] [place] [address] #### VD25H #### [employer] [address] [place] [address] US Abdomen Limitedon 019 US Abdomen Limited Patient Name: KATHYA HOOPER Ultrasound Exam Date/Time 08/16/2018 19:12:00 EDT Exam US Abdomen Limited Ordering Physician [id number] ESPINOSA Accession Number [id number] CPT4 Codes 94476 () Reason For Exam elevated transaminases Report [...] Transcribed Date and Time: 08/16/2018 7:26 Normal [facility] Glucose,Bedsideon 08-15-2018 Glucose mass conc 98 mg/dL Normal 70-100 [facility] Comment on above: Result Comment: Test performed by glucose meter. Results may be 10%-15% lower than serum/plasma values. (CLIA ID [id number]) Performed By: #### H EMDF, PT, BMP3M, PHOS3, MG3, CK3 #### [facility] [address] #### VD25H #### [facility] [address] [place] [address] Procalcitoninon 08-15-2018 Interpretation See Below Normal [facility] Comment on above: Result Comment: PCT <0.50 = Low risk of severe sepsis and/or septic shock. PCT >2.00 = High risk of severe sepsis and/or septic shock. Performed By: #### H EMDF, PT, BMP3M, PHOS3, MG3, CK3 #### [facility] [address] [address] #### VD25H #### [facility] [address] [place] [address] CULTURE FUNGUSon 08-13-2018 CULTURE FUNGUS CULTURE FUNGUS --> Status: F No fungus isolated after 21 days. Normal [facility] Comment on above: Order Comment: Speci men Source Comment:Body Fluid Performed By: #### H EMDF, PT, BMP3M, PHOS3, MG3, CK3 #### [facility] [address] [place], [place] #### VD25H #### [facility] [address] [place] [address] Hemogram w/ Autodiffon 08-01 Abs Baso Cnt 0.2 10*3/uL Normal 0.0-0.2 [facility] Comment on above: Performed By: #### H EMDF, PT, BMP3M, PHOS3, MG3, CK3 #### [place] [address] [address] [place], [place] #### VD25H #### [facility] [address] [place] [address] Abs Neutrophile Cnt 14.3 10*3/uL High 1.8-7.0 [facility] Comment on above: Performed By: #### H EMDF, PT, BMP3M, PHOS3, MG3, CK3 #### [address] #### VD25H #### [facility] [address] [place] [address] Basophils/100 WBC (Bld) 1.0 % Normal 0.0-2.0 [facility] Comment on above: Performed By: #### H EMDF, PT, BMP3M, PHOS3, MG3, CK3 #### [address] #### VD25H #### [facility] [address] [place] [address] Eosinophils #/vol (Bld) 0.4 10*3/uL Normal 0.0-0.5 [facility] Comment on above: Performed By: #### H EMDF, PT, BMP3M, PHOS3, MG3, CK3 #### [address] #### VD25H #### [facility] [address] [place] [address] Eosinophils/100 WBC (Bld) 2.3 % Normal 1.0-6.0 [facility] Comment on above: Performed By: #### H EMDF, PT, BMP3M, PHOS3, MG3, CK3 #### [address] [place], [place] #### VD25H #### [facility] [address] [place] [address] Erythrocyte distribution width Ratio (RBC) 13.7 % Normal 11.5-14.5 [facility] Comment on above: Performed By: #### H EMDF, PT, BMP3M, PHOS3, MG3, CK3 #### [address] #### VD25H #### [facility] [address] [place] [address] Granulocytes/100 WBC (Bld) 82.1 % High 40.0-80.0 [facility] Comment on above: Performed By: #### H EMDF, PT, BMP3M, PHOS3, MG3, CK3 #### [address] #### VD25H #### [facility] [address] [place] [address] Hematocrit Volume Fraction (Bld) 31.2 % Low 40.0-52.0 [facility] Comment on above: Performed By: #### H EMDF, PT, BMP3M, PHOS3, MG3, CK3 #### [address] #### VD25H #### [facility] [address] [place] [address] Hemoglobin mass conc (Bld) 10.5 g/dL Low 13.0-18.0 [facility] Comment on above: Performed By: #### H EMDF, PT, BMP3M, PHOS3, MG3, CK3 #### [address] #### VD25H #### [facility] [address] [place] [address] Lymphocytes #/vol (Bld) 1.6 10*3/uL Normal 1.0-4.3 [facility] Comment on above: Performed By: #### H EMDF, PT, BMP3M, PHOS3, MG3, CK3 #### [facility] [address] [place], [place] #### VD25H #### [facility] [address] [place] [address] Lymphocytes/100 WBC (Bld) 9.1 % Low 20.0-40.0 [facility] Comment on above: Performed By: #### H EMDF, PT, BMP3M, PHOS3, MG3, CK3 #### [address] #### VD25H #### [facility] [address] [place] [address] MCH Entitic mass (RBC) 28.9 pg Normal 26.0-34.0 [facility] Comment on above: Performed By: #### H EMDF, PT, BMP3M, PHOS3, MG3, CK3 #### [address] #### VD25H #### [facility] [address] [place] [address] MCHC mass conc (RBC) 33.7 % Normal 32.0-36.0 [facility] Comment on above: Performed By: #### H EMDF, PT, BMP3M, PHOS3, MG3, CK3 #### [address] #### VD25H #### [facility] [address] [place] [address] MCV Entitic volume (RBC) 85.5 fL Normal 80.0-98.0 [facility] Comment on above: Performed By: #### H EMDF, PT, BMP3M, PHOS3, MG3, CK3 #### [address] #### VD25H #### [facility] [address] [place] [address] Monocytes #/vol (Bld) 1.0 10*3/uL High 0.0-0.8 [facility] Comment on above: Performed By: #### H EMDF, PT, BMP3M, PHOS3, MG3, CK3 #### [facility] [address] [place], [place] #### VD25H #### [facility] [address] [place] [address] Monocytes/100 WBC (Bld) 5.5 % Normal 2.0-10.0 [facility] Comment on above: Performed By: #### H EMDF, PT, BMP3M, PHOS3, MG3, CK3 #### [place] [address] [place], [place] #### VD25H #### [facility] [address] [place] [address] Platelet mean volume Entitic volume (Bld) 8.0 fL Normal 7.4-10.4 [facility] Comment on above: Performed By: #### H EMDF, PT, BMP3M, PHOS3, MG3, CK3 #### [address] #### VD25H #### [facility] [address] [place] [address] Platelets #/vol (Bld) 425 10*3/uL Normal 140-440 [facility] Comment on above: Performed By: #### H EMDF, PT, BMP3M, PHOS3, MG3, CK3 #### [facility] [address] [place], [place] #### VD25H #### [facility] [address] [place] [address] RBC #/vol (Bld) 3.65 10*6/uL Low 4.40-5.90 [facility] Comment on above: Performed By: #### H EMDF, PT, BMP3M, PHOS3, MG3, CK3 #### [place] [address] [place] #### VD25H #### [facility] [address] [place] [address] WBC #/vol (Bld) 17.4 10*3/uL High 3.6-10.7 [facility] Comment on above: Performed By: #### H EMDF, PT, BMP3M, PHOS3, MG3, CK3 #### [place] [address] [place], [place] #### VD25H #### [facility] [address] [place] [address] Basic Metabolic Panelon 04-0 Calcium mass conc 8.3 mg/dL Low 8.4-10.4 [facility] Comment on above: Performed By: #### H EMDF, PT, BMP3M, PHOS3, MG3, CK3 #### [address] #### VD25H #### [place] [address] [place] [address] Glucose mass conc 114 mg/dL High 70-100 [facility] Comment on above: Performed By: #### H EMDF, PT, BMP3M, PHOS3, MG3, CK3 #### [address] #### VD25H #### [facility] [address] [place] [address] Anion gap molar conc 10 Normal [facility] Comment on above: Performed By: #### H EMDF, PT, BMP3M, PHOS3, MG3, CK3 #### [address] #### VD25H #### [facility] [address] [place] [address] CO2 molar conc 34 mmol/L High 22-30 [facility] Comment on above: Performed By: #### H EMDF, PT, BMP3M, PHOS3, MG3, CK3 #### [place] [address] [place], [place] #### VD25H #### [place] [address] [place] [address] Creatinine mass conc 0.52 mg/dL Normal 0.52-1.25 [facility] Comment on above: Performed By: #### H EMDF, PT, BMP3M, PHOS3, MG3, CK3 #### [address] #### VD25H #### [facility] [address] [place] [address] GFR/1.73 sq M predicted among blacks MDRD vol rate/area (S/P/Bld) mL/min/{1.73_m2} Normal >60 [facility] Comment on above: Performed By: #### H EMDF, PT, BMP3M, PHOS3, MG3, CK3 #### [address] #### VD25H #### [facility] [address] [place] [address] GFR/1.73 sq M predicted among non-blacks MDRD vol rate/area (S/P/Bld) mL/min/{1.73_m2} Normal >60 [facility] Comment on above: Result Comment: Sour ce- MDRD equation with creatinine calibration to IDMS(NKDEP) eGFR not recommended for drug dose adjustment Performed By: #### H EMDF, PT, BMP3M, PHOS3, MG3, CK3 #### [address] #### VD25H #### [facility] [address] [place] [address] Urea nitrogen mass conc 23 mg/dL High 7-20 [facility] Comment on above: Performed By: #### H EMDF, PT, BMP3M, PHOS3, MG3, CK3 #### [address] #### VD25H #### [facility] [address] [place] [address] Chloride molar conc 95 mmol/L Low 98-107 [facility] Comment on above: Performed By: #### H EMDF, PT, BMP3M, PHOS3, MG3, CK3 #### [address] [place], [place] #### VD25H #### [facility] [address] [place] [address] Potassium molar conc 3.7 mmol/L Normal 3.5-5.1 [facility] Comment on above: Performed By: #### H EMDF, PT, BMP3M, PHOS3, MG3, CK3 #### [address] #### VD25H #### [facility] [address] [place] [address] Sodium molar conc 139 mmol/L Normal 135-145 [facility] Comment on above: Performed By: #### H EMDF, PT, BMP3M, PHOS3, MG3, CK3 #### [address] #### VD25H #### [place] [address] [place] [address] Hemogram w/ Autodiffon 07-31 Abs Baso Cnt 0.2 10*3/uL Normal 0.0-0.2 [facility] Comment on above: Performed By: #### H EMDF, PT, BMP3M, PHOS3, MG3, CK3 #### [address] [place], [place] #### VD25H #### [facility] [address] [place] [address] Abs Neutrophile Cnt 13.4 10*3/uL High 1.8-7.0 [facility] Comment on above: Performed By: #### H EMDF, PT, BMP3M, PHOS3, MG3, CK3 #### [address] #### VD25H #### [place] [address] [place] [address] Basophils/100 WBC (Bld) 1.0 % Normal 0.0-2.0 [facility] Comment on above: Performed By: #### H EMDF, PT, BMP3M, PHOS3, MG3, CK3 #### [place] [address] [place], [place] #### VD25H #### [facility] [address] [place] [address] Eosinophils #/vol (Bld) 0.5 10*3/uL Normal 0.0-0.5 [facility] Comment on above: Performed By: #### H EMDF, PT, BMP3M, PHOS3, MG3, CK3 #### [address] #### VD25H #### [facility] [address] [place] [address] Eosinophils/100 WBC (Bld) 3.1 % Normal 1.0-6.0 [facility] Comment on above: Performed By: #### H EMDF, PT, BMP3M, PHOS3, MG3, CK3 #### [address] #### VD25H #### [facility] [address] [place] [address] Erythrocyte distribution width Ratio (RBC) 14.0 % Normal 11.5-14.5 [facility] Comment on above: Performed By: #### H EMDF, PT, BMP3M, PHOS3, MG3, CK3 #### [address] #### VD25H #### [facility] [address] [place] [address] Granulocytes/100 WBC (Bld) 80.6 % High 40.0-80.0 [facility] Comment on above: Performed By: #### H EMDF, PT, BMP3M, PHOS3, MG3, CK3 #### [address] #### VD25H #### [facility] [address] [place] [address] Hematocrit Volume Fraction (Bld) 32.3 % Low 40.0-52.0 [facility] Comment on above: Performed By: #### H EMDF, PT, BMP3M, PHOS3, MG3, CK3 #### [facility] [address] [place], [place] #### VD25H #### [facility] [address] [place] [address] Hemoglobin mass conc (Bld) 10.8 g/dL Low 13.0-18.0 [facility] Comment on above: Performed By: #### H EMDF, PT, BMP3M, PHOS3, MG3, CK3 #### [address] #### VD25H #### [facility] [address] [place] [address] Lymphocytes #/vol (Bld) 1.6 10*3/uL Normal 1.0-4.3 [facility] Comment on above: Performed By: #### H EMDF, PT, BMP3M, PHOS3, MG3, CK3 #### [address] #### VD25H #### [facility] [address] [place] [address] Lymphocytes/100 WBC (Bld) 9.8 % Low 20.0-40.0 [facility] Comment on above: Performed By: #### H EMDF, PT, BMP3M, PHOS3, MG3, CK3 #### [facility] [address] [place], [place] #### VD25H #### [facility] [address] [place] [address] MCH Entitic mass (RBC) 28.9 pg Normal 26.0-34.0 [facility] Comment on above: Performed By: #### H EMDF, PT, BMP3M, PHOS3, MG3, CK3 #### [facility] [address] [place], [place] #### VD25H #### [facility] [address] [place] [address] MCHC mass conc (RBC) 33.6 % Normal 32.0-36.0 [facility] Comment on above: Performed By: #### H EMDF, PT, BMP3M, PHOS3, MG3, CK3 #### [address] #### VD25H #### [facility] [address] [place] [address] MCV Entitic volume (RBC) 86.1 fL Normal 80.0-98.0 [facility] Comment on above: Performed By: #### H EMDF, PT, BMP3M, PHOS3, MG3, CK3 #### [address] #### VD25H #### [place] [address] [place] [address] Monocytes #/vol (Bld) 0.9 10*3/uL High 0.0-0.8 [facility] Comment on above: Performed By: #### H EMDF, PT, BMP3M, PHOS3, MG3, CK3 #### [address] #### VD25H #### [place] [address] [place] [address] Monocytes/100 WBC (Bld) 5.5 % Normal 2.0-10.0 [facility] Comment on above: Performed By: #### H EMDF, PT, BMP3M, PHOS3, MG3, CK3 #### [address] #### VD25H #### [facility] [address] [place] [address] Platelet mean volume Entitic volume (Bld) 8.2 fL Normal 7.4-10.4 [facility] Comment on above: Performed By: #### H EMDF, PT, BMP3M, PHOS3, MG3, CK3 #### [address] #### VD25H #### [facility] [address] [place] [address] Platelets #/vol (Bld) 475 10*3/uL High 140-440 [facility] Comment on above: Performed By: #### H EMDF, PT, BMP3M, PHOS3, MG3, CK3 #### [place] [address] [place], [place] #### VD25H #### [facility] [address] [place] [address] RBC #/vol (Bld) 3.75 10*6/uL Low 4.40-5.90 [facility] Comment on above: Performed By: #### H EMDF, PT, BMP3M, PHOS3, MG3, CK3 #### [address] #### VD25H #### [facility] [address] [place] [address] WBC #/vol (Bld) 16.6 10*3/uL High 3.6-10.7 [facility] Comment on above: Performed By: #### H EMDF, PT, BMP3M, PHOS3, MG3, CK3 #### [address] #### VD25H #### [facility] [address] [place] [address] Magnesiumon 07-31-2018 Magnesium mass conc 2.4 mg/dL High 1.6-2.3 [facility] Comment on above: Performed By: #### H EMDF, PT, BMP3M, PHOS3, MG3, CK3 #### [address] [place], [place] #### VD25H #### [facility] [address] [place] [address] Phosphoruson 07-31-2018 Phosphate mass conc 4.5 mg/dL Normal 2.5-4.5 [facility] Comment on above: Performed By: #### H EMDF, PT, BMP3M, PHOS3, MG3, CK3 #### [place] [address] [place] [address] #### VD25H #### [facility] [address] [place] [address] Basic Metabolic Panelon 04-0 Calcium mass conc 8.6 mg/dL Normal 8.4-10.4 [facility] Comment on above: Performed By: #### H EMDF, PT, BMP3M, PHOS3, MG3, CK3 #### [place] [address] [place], [place] #### VD25H #### [facility] [address] [place] [address] Anion gap molar conc 8 Normal [facility] Comment on above: Performed By: #### H EMDF, PT, BMP3M, PHOS3, MG3, CK3 #### [address] #### VD25H #### [facility] [address] [place] [address] CO2 molar conc 34 mmol/L High 22-30 [facility] Comment on above: Performed By: #### H EMDF, PT, BMP3M, PHOS3, MG3, CK3 #### [address] #### VD25H #### [facility] [address] [place] [address] Creatinine mass conc 0.56 mg/dL Normal 0.52-1.25 [facility] Comment on above: Performed By: #### H EMDF, PT, BMP3M, PHOS3, MG3, CK3 #### [address] [place] [address] #### VD25H #### [facility] [address] [place] [address] GFR/1.73 sq M predicted among blacks MDRD vol rate/area (S/P/Bld) mL/min/{1.73_m2} Normal >60 [facility] Comment on above: Performed By: #### H EMDF, PT, BMP3M, PHOS3, MG3, CK3 #### [facility] [address] [place], [place] #### VD25H #### [facility] [address] [place] [address] GFR/1.73 sq M predicted among non-blacks MDRD vol rate/area (S/P/Bld) mL/min/{1.73_m2} Normal >60 [facility] Comment on above: Result Comment: Sour ce- MDRD equation with creatinine calibration to IDMS(NKDEP) eGFR not recommended for drug dose adjustment Performed By: #### H EMDF, PT, BMP3M, PHOS3, MG3, CK3 #### [address] #### VD25H #### [facility] [address] [place] [address] Glucose mass conc 121 mg/dL High 70-100 [facility] Comment on above: Performed By: #### H EMDF, PT, BMP3M, PHOS3, MG3, CK3 #### [address] [place], [place] #### VD25H #### [facility] [address] [place] [address] Urea nitrogen mass conc 29 mg/dL High 7-20 [facility] Comment on above: Performed By: #### H EMDF, PT, BMP3M, PHOS3, MG3, CK3 #### [place] [address] [place], [place] #### VD25H #### [facility] [address] [place] [address] Chloride molar conc 99 mmol/L Normal 98-107 [facility] Comment on above: Performed By: #### H EMDF, PT, BMP3M, PHOS3, MG3, CK3 #### [place] [address] [place] #### VD25H #### [facility] [address] [place] [address] Potassium molar conc 3.7 mmol/L Normal 3.5-5.1 [facility] Comment on above: Performed By: #### H EMDF, PT, BMP3M, PHOS3, MG3, CK3 #### [facility] [address] [place] [address] #### VD25H #### [facility] [address] [place] [address] Sodium molar conc 141 mmol/L Normal 135-145 [facility] Comment on above: Performed By: #### H EMDF, PT, BMP3M, PHOS3, MG3, CK3 #### [facility] [address] [place] [address] #### VD25H #### [facility] [address] [place] [address] CR Abdomen APon 07-30-2018 CR Abdomen AP Patient Name: KATHYA HOOPER Diagnostic Radiology Exam Date/Time 07/30/2018 10:28:42 EDT Exam CR Abdomen AP Ordering Physician [id number] GUNN Accession Number [id number] CPT4 Codes 39081 () Reason For Exam abd distension Report [...] Transcribed Date and Time: 07/30/2018 3:57 Normal [facility] CR Chest Portableon 07-31-19 CR Chest Portable Patient Name: KATHYA HOOPER Diagnostic Radiology Exam Date/Time 07/30/2018 12:28:13 EDT Exam CR Chest Portable Ordering Physician SALO DAVIS Accession Number [id number] CPT4 Codes 50420 () Reason For Exam line reposition Report [...] Transcribed Date and Time: 07/30/2018 1:32 Normal [facility] CR Chest Portable Patient Name: KATHYA HOOPER Diagnostic Radiology Exam Date/Time 07/30/2018 06:40:08 EDT Exam CR Chest Portable Ordering Physician MARIA EUGENIA PEREZ Accession Number [id number] CPT4 Codes 78610 () Reason For Exam ETT placement Report [...] Transcribed Date and Time: 07/30/2018 10:26 Normal [facility] Glucose,Bedsideon 07-30-2018 Glucose mass conc 125 mg/dL High 70-100 [facility] Comment on above: Result Comment: Test performed by glucose meter. Results may be 10%-15% lower than serum/plasma values. (CLIA ID [id number]) Performed By: #### H EMDF, PT, BMP3M, PHOS3, MG3, CK3 #### [facility] [address] [place] [address] #### VD25H #### [facility] [address] [place] [address] Glucose mass conc 117 mg/dL High 70-100 [facility] Comment on above: Result Comment: Test performed by glucose meter. Results may be 10%-15% lower than serum/plasma values. (CLIA ID [id number]) Performed By: #### H EMDF, PT, BMP3M, PHOS3, MG3, CK3 #### [facility] [address] [place] [address] #### VD25H #### [employer] [facility] [address] [place] [address] Glucose mass conc 44 mg/dL Low 70-100 [facility] Comment on above: Result Comment: Repe ated Test; Test performed by glucose meter. Results may be 10%-15% lower than serum/plasma values. (CLIA ID [id number]) Performed By: #### H EMDF, PT, BMP3M, PHOS3, MG3, CK3 #### [facility] [address] [place], [place] #### VD25H #### [facility] [address] [place] [address] Hemogram w/ Autodiffon 07-30 Abs Baso Cnt 0.2 10*3/uL Normal 0.0-0.2 [facility] Comment on above: Performed By: #### H EMDF, PT, BMP3M, PHOS3, MG3, CK3 #### [address] [place], [place] #### VD25H #### [facility] [address] [place] [address] Abs Neutrophile Cnt 13.2 10*3/uL High 1.8-7.0 [facility] Comment on above: Performed By: #### H EMDF, PT, BMP3M, PHOS3, MG3, CK3 #### [address] #### VD25H #### [facility] [address] [place] [address] Basophils/100 WBC (Bld) 0.9 % Normal 0.0-2.0 [facility] Comment on above: Performed By: #### H EMDF, PT, BMP3M, PHOS3, MG3, CK3 #### [address] #### VD25H #### [facility] [address] [place] [address] Eosinophils #/vol (Bld) 0.5 10*3/uL Normal 0.0-0.5 [facility] Comment on above: Performed By: #### H EMDF, PT, BMP3M, PHOS3, MG3, CK3 #### [address] #### VD25H #### [facility] [address] [place] [address] Eosinophils/100 WBC (Bld) 2.8 % Normal 1.0-6.0 [facility] Comment on above: Performed By: #### H EMDF, PT, BMP3M, PHOS3, MG3, CK3 #### [facility] [address], [place] #### VD25H #### [facility] [address] [place] [address] Erythrocyte distribution width Ratio (RBC) 13.7 % Normal 11.5-14.5 [facility] Comment on above: Performed By: #### H EMDF, PT, BMP3M, PHOS3, MG3, CK3 #### [address] [place], [place] #### VD25H #### [facility] [address] [place] [address] Granulocytes/100 WBC (Bld) 76.6 % Normal 40.0-80.0 [facility] Comment on above: Performed By: #### H EMDF, PT, BMP3M, PHOS3, MG3, CK3 #### [address] #### VD25H #### [facility] [address] [place] [address] Hematocrit Volume Fraction (Bld) 31.4 % Low 40.0-52.0 [facility] Comment on above: Performed By: #### H EMDF, PT, BMP3M, PHOS3, MG3, CK3 #### [address] #### VD25H #### [facility] [address] [place] [address] Hemoglobin mass conc (Bld) 10.6 g/dL Low 13.0-18.0 [facility] Comment on above: Performed By: #### H EMDF, PT, BMP3M, PHOS3, MG3, CK3 #### [address] #### VD25H #### [facility] [address] [place] [address] Lymphocytes #/vol (Bld) 2.2 10*3/uL Normal 1.0-4.3 [facility] Comment on above: Performed By: #### H EMDF, PT, BMP3M, PHOS3, MG3, CK3 #### [address] [place], [place] #### VD25H #### [facility] [address] [place] [address] Lymphocytes/100 WBC (Bld) 12.9 % Low 20.0-40.0 [facility] Comment on above: Performed By: #### H EMDF, PT, BMP3M, PHOS3, MG3, CK3 #### [address] #### VD25H #### [facility] [address] [place] [address] MCH Entitic mass (RBC) 29.2 pg Normal 26.0-34.0 [facility] Comment on above: Performed By: #### H EMDF, PT, BMP3M, PHOS3, MG3, CK3 #### [address] #### VD25H #### [facility] [address] [place] [address] MCHC mass conc (RBC) 33.8 % Normal 32.0-36.0 [facility] Comment on above: Performed By: #### H EMDF, PT, BMP3M, PHOS3, MG3, CK3 #### [address] #### VD25H #### [facility] [address] [place] [place] [address] MCV Entitic volume (RBC) 86.4 fL Normal 80.0-98.0 [facility] Comment on above: Performed By: #### H EMDF, PT, BMP3M, PHOS3, MG3, CK3 #### [address] #### VD25H #### [facility] [address] [place] [address] Monocytes #/vol (Bld) 1.2 10*3/uL High 0.0-0.8 [facility] Comment on above: Performed By: #### H EMDF, PT, BMP3M, PHOS3, MG3, CK3 #### [facility] [address] [place], [place] #### VD25H #### [facility] [address] [place] [address] Monocytes/100 WBC (Bld) 6.8 % Normal 2.0-10.0 [facility] Comment on above: Performed By: #### H EMDF, PT, BMP3M, PHOS3, MG3, CK3 #### [place] [address] [place], [place] #### VD25H #### [facility] [address] [place] [address] Platelet mean volume Entitic volume (Bld) 8.1 fL Normal 7.4-10.4 [facility] Comment on above: Performed By: #### H EMDF, PT, BMP3M, PHOS3, MG3, CK3 #### [address] [place] #### VD25H #### [facility] [address] [place] [address] Platelets #/vol (Bld) 507 10*3/uL High 140-440 [facility] Comment on above: Performed By: #### H EMDF, PT, BMP3M, PHOS3, MG3, CK3 #### [address] [place] #### VD25H #### [facility] [address] [place] [address] RBC #/vol (Bld) 3.64 10*6/uL Low 4.40-5.90 [facility] Comment on above: Performed By: #### H EMDF, PT, BMP3M, PHOS3, MG3, CK3 #### [address] #### VD25H #### [facility] [address] [place] [address] WBC #/vol (Bld) 17.2 10*3/uL High 3.6-10.7 [facility] Comment on above: Performed By: #### H EMDF, PT, BMP3M, PHOS3, MG3, CK3 #### [facility] [address] [place] #### VD25H #### [facility] [address] [place] [address] Magnesiumon 07-30-2018 Magnesium mass conc 2.5 mg/dL High 1.6-2.3 [facility] Comment on above: Performed By: #### H EMDF, PT, BMP3M, PHOS3, MG3, CK3 #### [address] #### VD25H #### [facility] [address] [place] [address] Phosphoruson 07-30-2018 Phosphate mass conc 4.5 mg/dL Normal 2.5-4.5 [facility] Comment on above: Performed By: #### H EMDF, PT, BMP3M, PHOS3, MG3, CK3 #### [facility] [address] #### VD25H #### [facility] [address] [place] [address] VL Venous Duplex US Lower Ex t Bilateralon 07-30-2018 VL Venous Duplex US Lower Ext Bilateral Patient Name: KATHYA HOOPER Ultrasound Exam Date/Time 07/30/2018 12:27:47 EDT Exam VL Venous Duplex US Lower Ext Bilateral Ordering Physician ETIENNE MARTÍNEZ JULIE Accession Number [id number] CPT4 Codes 95135 () Reason For Exam edema Report [facility] --- Lower Extremity Venous Duplex Report Patient Name: Kathya Hooper : 1955 Study Date: 07/30/2018 W (63yrs) Age: 63 Account: [id number] Gender: M Loc: T209 BP: Ordering: Yesenia Martínez Technologist: Ordering Physician: Yesenia Martínez Ankle Patch Molder: Barbara Suarez RDMS, T Interpreting Physician: Krysta Arora --- Location: [facility] --- INDICATIONS: Edema. --- [...] performed. The images were obtained using a Yelago E9 vascular ultrasound machine. --- VENOUS FLOW [...] ---------+-------+--- --+ Electronically signed by: Krysta Arora [id number] Final Dictated: 07/30/2018 1:30 pm Dictating Physician: KRYSTA ARORA Signed Date and Time: 07/30/2018 1:29 pm Signed by: KRYSTA ARORA Normal [facility] Arterial Blood Gaseson 07-29 CO2 molar conc 34.4 mmol/L High 23.0-27.[address] [facility] Comment on above: Performed By: #### H EMDF, PT, BMP3M, PHOS3, MG3, CK3 #### [address] #### VD25H #### [facility] [address] [place] [address] HCO3 molar conc (Bld) 33.0 mmol/L High 21.0-25.0 [facility] Comment on above: Performed By: #### H EMDF, PT, BMP3M, PHOS3, MG3, CK3 #### [facility] [address], [place] #### VD25H #### [facility] [address] [facility] [place] [address] Hemoglobin mass conc (Bld) 11.5 g/dL Normal ScreenOnly [facility] Comment on above: Performed By: #### H EMDF, PT, BMP3M, PHOS3, MG3, CK3 #### [address] #### VD25H #### [facility] [address] [place] [address] Oxygen ppres (Bld) 84.2 mm[Hg] Normal 80.0-100.0 [facility] Comment on above: Performed By: #### H EMDF, PT, BMP3M, PHOS3, MG3, CK3 #### [facility] [address] [place], [place] #### VD25H #### [facility] [address] [place] [address] Oxygen saturation in Blood 96.2 % Normal 95.0-100.0 [facility] Comment on above: Performed By: #### H EMDF, PT, BMP3M, PHOS3, MG3, CK3 #### [address] [place] [facility], [place] #### VD25H #### [facility] [address] [place] [address] pCO2 46.8 mm[Hg] High 35.0-45.0 [facility] Comment on above: Performed By: #### H EMDF, PT, BMP3M, PHOS3, MG3, CK3 #### [place] [address] [facility], [place] #### VD25H #### [facility] [address] [place] [address] pH (Bld) 7.466 High 7.350-7.450 [facility] Comment on above: Performed By: #### H EMDF, PT, BMP3M, PHOS3, MG3, CK3 #### [facility] [address] [facility], [place] #### VD25H #### [facility] [address] [place] [address] Std Base Excess 8.2 mmol/L High -3.0-3.0 [facility] Comment on above: Performed By: #### H EMDF, PT, BMP3M, PHOS3, MG3, CK3 #### [facility] [address] [facility], [place] #### VD25H #### [facility] [address] [place] [address] FIO2 .30 Normal [facility] Comment on above: Performed By: #### H EMDF, PT, BMP3M, PHOS3, MG3, CK3 #### [facility] [address] [place] [address] #### VD25H #### [facility] [address] [place] [address] Basic Metabolic Panelon 03-3 Calcium mass conc 8.5 mg/dL Normal 8.4-10.4 [facility] Comment on above: Performed By: #### H EMDF, PT, BMP3M, PHOS3, MG3, CK3 #### [address] #### VD25H #### [facility] [address] [place] [address] Glucose mass conc 163 mg/dL High 70-100 [facility] Comment on above: Performed By: #### H EMDF, PT, BMP3M, PHOS3, MG3, CK3 #### [address] [address] [place] #### VD25H #### [facility] [address] [place] [address] Anion gap molar conc 10 Normal [facility] Comment on above: Performed By: #### H EMDF, PT, BMP3M, PHOS3, MG3, CK3 #### [address] [place] #### VD25H #### [facility] [address] [place] [address] CO2 molar conc 37 mmol/L High 22-30 [facility] Comment on above: Performed By: #### H EMDF, PT, BMP3M, PHOS3, MG3, CK3 #### [address] [place], [place] #### VD25H #### [facility] [address] [place] [address] Creatinine mass conc 0.57 mg/dL Normal 0.52-1.25 [facility] Comment on above: Performed By: #### H EMDF, PT, BMP3M, PHOS3, MG3, CK3 #### [address] #### VD25H #### [facility] [address] [place] [address] GFR/1.73 sq M predicted among blacks MDRD vol rate/area (S/P/Bld) mL/min/{1.73_m2} Normal >60 [facility] Comment on above: Performed By: #### H EMDF, PT, BMP3M, PHOS3, MG3, CK3 #### [address] #### VD25H #### [facility] [address] [place] [address] GFR/1.73 sq M predicted among non-blacks MDRD vol rate/area (S/P/Bld) mL/min/{1.73_m2} Normal >60 [facility] Comment on above: Result Comment: Sour ce- MDRD equation with creatinine calibration to IDMS(NKDEP) eGFR not recommended for drug dose adjustment Performed By: #### H EMDF, PT, BMP3M, PHOS3, MG3, CK3 #### [address] #### VD25H #### [facility] [address] [place] [address] Urea nitrogen mass conc 30 mg/dL High 7-20 [facility] Comment on above: Performed By: #### H EMDF, PT, BMP3M, PHOS3, MG3, CK3 #### [address] #### VD25H #### [facility] [address] [place] [address] Chloride molar conc 95 mmol/L Low 98-107 [facility] Comment on above: Performed By: #### H EMDF, PT, BMP3M, PHOS3, MG3, CK3 #### [address] [place] [address] #### VD25H #### [facility] [address] [place] [address] Potassium molar conc 3.3 mmol/L Low 3.5-5.1 [facility] Comment on above: Performed By: #### H EMDF, PT, BMP3M, PHOS3, MG3, CK3 #### [facility] [address] [place], [place] #### VD25H #### [facility] [address] [place] [address] Sodium molar conc 141 mmol/L Normal 135-145 [facility] Comment on above: Performed By: #### H EMDF, PT, BMP3M, PHOS3, MG3, CK3 #### [facility] [address] [place], [place] #### VD25H #### [facility] [address] [place] [address] CR Chest Portableon 07-30-19 19 CR Chest Portable Patient Name: KATHYA HOOPER Diagnostic Radiology Exam Date/Time 07/29/2018 07:01:44 EDT Exam CR Chest Portable Ordering Physician MARIA EUGENIA PEREZ Accession Number [id number] CPT4 Codes 28849 () Reason For Exam ETT placement Report [...] Transcribed Date and Time: 07/29/2018 9:[address] [facility] Glucose,Bedsideon 07-29-2018 Glucose mass conc 124 mg/dL High 70-100 [facility] Comment on above: Result Comment: Test performed by glucose meter. Results may be 10%-15% lower than serum/plasma values. (CLIA ID [id number]) Performed By: #### H EMDF, PT, BMP3M, PHOS3, MG3, CK3 #### [facility] [address] [place] [address] #### VD25H #### [facility] [address] [place] [address] Glucose mass conc 175 mg/dL High 70-100 [facility] Comment on above: Result Comment: Test performed by glucose meter. Results may be 10%-15% lower than serum/plasma values. (CLIA ID [id number]) Performed By: #### H EMDF, PT, BMP3M, PHOS3, MG3, CK3 #### [facility] [address] [place] [address] #### VD25H #### [facility] [address] [place] [address] Glucose mass conc 138 mg/dL High 70-100 [facility] Comment on above: Result Comment: Test performed by glucose meter. Results may be 10%-15% lower than serum/plasma values. (CLIA ID [id number]) Performed By: #### H EMDF, PT, BMP3M, PHOS3, MG3, CK3 #### [employer] [facility] [address] [place] [address] #### VD25H #### [facility] [address] [place] [address] Glucose mass conc 147 mg/dL High 70-100 [facility] Comment on above: Result Comment: Test performed by glucose meter. Results may be 10%-15% lower than serum/plasma values. (CLIA ID [id number]) Performed By: #### H EMDF, PT, BMP3M, PHOS3, MG3, CK3 #### [address] [place] [place], [place] #### VD25H #### [facility] [address] [place] [address] Hemogram w/ Autodiffon 07-29 Erythrocyte distribution width Ratio (RBC) 13.8 % Normal 11.5-14.5 [facility] Comment on above: Performed By: #### H EMDF, PT, BMP3M, PHOS3, MG3, CK3 #### [address] [place], [place] #### VD25H #### [facility] [address] [place] [address] Hematocrit Volume Fraction (Bld) 32.9 % Low 40.0-52.0 [facility] Comment on above: Performed By: #### H EMDF, PT, BMP3M, PHOS3, MG3, CK3 #### [address] #### VD25H #### [facility] [address] [place] [address] Hemoglobin mass conc (Bld) 11.0 g/dL Low 13.0-18.0 [facility] Comment on above: Performed By: #### H EMDF, PT, BMP3M, PHOS3, MG3, CK3 #### [address] #### VD25H #### [facility] [address] [place] [address] MCH Entitic mass (RBC) 29.0 pg Normal 26.0-34.0 [facility] Comment on above: Performed By: #### H EMDF, PT, BMP3M, PHOS3, MG3, CK3 #### [address] #### VD25H #### [facility] [address] [place] [address] MCHC mass conc (RBC) 33.6 % Normal 32.0-36.0 [facility] Comment on above: Performed By: #### H EMDF, PT, BMP3M, PHOS3, MG3, CK3 #### [address] [place] #### VD25H #### [facility] [address] [place] [address] MCV Entitic volume (RBC) 86.3 fL Normal 80.0-98.0 [facility] Comment on above: Performed By: #### H EMDF, PT, BMP3M, PHOS3, MG3, CK3 #### [address] [place] #### VD25H #### [facility] [address] [place] [address] Platelet mean volume Entitic volume (Bld) 8.1 fL Normal 7.4-10.4 [facility] Comment on above: Performed By: #### H EMDF, PT, BMP3M, PHOS3, MG3, CK3 #### [address] [place] [place] #### VD25H #### [facility] [address] [place] [address] Platelets #/vol (Bld) 501 10*3/uL High 140-440 [facility] Comment on above: Performed By: #### H EMDF, PT, BMP3M, PHOS3, MG3, CK3 #### [address] [place] [place] #### VD25H #### [facility] [address] [place] [address] RBC #/vol (Bld) 3.81 10*6/uL Low 4.40-5.90 [facility] Comment on above: Performed By: #### H EMDF, PT, BMP3M, PHOS3, MG3, CK3 #### [address] #### VD25H #### [facility] [address] [place] [address] WBC #/vol (Bld) 20.8 10*3/uL High 3.6-10.7 [facility] Comment on above: Performed By: #### H EMDF, PT, BMP3M, PHOS3, MG3, CK3 #### [facility] [address] [place], [place] #### VD25H #### [facility] [address] [place] [address] Magnesiumon 07-29-2018 Magnesium mass conc 2.5 mg/dL High 1.6-2.3 [facility] Comment on above: Performed By: #### H EMDF, PT, BMP3M, PHOS3, MG3, CK3 #### [address] #### VD25H #### [place] [address] [place] [address] Manual Diffon 07-29-2018 Abs Neutrophile Cnt 17.3 10*3/uL High 2.2-8.2 [facility] Comment on above: Performed By: #### H EMDF, PT, BMP3M, PHOS3, MG3, CK3 #### [address] #### VD25H #### [facility] [address] [place] [address] Bands 1 % Normal 0-3 [facility] Comment on above: Performed By: #### H EMDF, PT, BMP3M, PHOS3, MG3, CK3 #### [place] [place], [place] #### VD25H #### [facility] [address] [place] [address] Eosinophils #/vol (Bld) 0.6 10*3/uL High 0.0-0.5 [facility] Comment on above: Performed By: #### H EMDF, PT, BMP3M, PHOS3, MG3, CK3 #### [address] #### VD25H #### [facility] [address] [place] [address] Eosinophils/100 WBC (Bld) 3 % Normal 1-6 [facility] Comment on above: Performed By: #### H EMDF, PT, BMP3M, PHOS3, MG3, CK3 #### [facility] [address] [place], [place] #### VD25H #### [facility] [address] [place] [address] Lymphocytes #/vol (Bld) 2.3 10*3/uL Normal 1.1-4.5 [facility] Comment on above: Performed By: #### H EMDF, PT, BMP3M, PHOS3, MG3, CK3 #### [address] #### VD25H #### [facility] [address] [place] [address] Lymphocytes/100 WBC (Bld) 11 % Low 20-40 [facility] Comment on above: Performed By: #### H EMDF, PT, BMP3M, PHOS3, MG3, CK3 #### [address] #### VD25H #### [facility] [address] [place] [address] Metamyelocytes 1 % Abnormal <1 [facility] Comment on above: Performed By: #### H EMDF, PT, BMP3M, PHOS3, MG3, CK3 #### [address] #### VD25H #### [facility] [address] [place] [address] Monocytes #/vol (Bld) 0.4 10*3/uL Normal 0.2-1.1 [facility] Comment on above: Performed By: #### H EMDF, PT, BMP3M, PHOS3, MG3, CK3 #### [address] #### VD25H #### [facility] [address] [place] [address] Monocytes/100 WBC (Bld) 2 % Normal 2-10 [facility] Comment on above: Performed By: #### H EMDF, PT, BMP3M, PHOS3, MG3, CK3 #### [facility] [address] [place], [place] #### VD25H #### [facility] [address] [place] [address] RBC morphology finding Nom (Bld) See Prev Normal [facility] Comment on above: Performed By: #### H EMDF, PT, BMP3M, PHOS3, MG3, CK3 #### [address] #### VD25H #### [facility] [address] [place] [address] Seg Neutrophils 82 % High 40-[address] [facility] Comment on above: Performed By: #### H EMDF, PT, BMP3M, PHOS3, MG3, CK3 #### [facility] [address] [place], [place] #### VD25H #### [facility] [address] [place] [address] Abs Baso Cnt 0.0 10*3/uL Normal 0.0-0.2 [facility] Comment on above: Performed By: #### H EMDF, PT, BMP3M, PHOS3, MG3, CK3 #### [address] [place] [address] [place], [place] #### VD25H #### [facility] [address] [place] [address] Basophils/100 WBC (Bld) 0 % Normal 0-2 [facility] Comment on above: Performed By: #### H EMDF, PT, BMP3M, PHOS3, MG3, CK3 #### [address] #### VD25H #### [facility] [address] [place] [address] Cells counted 100 Normal [facility] Comment on above: Performed By: #### H EMDF, PT, BMP3M, PHOS3, MG3, CK3 #### [address] #### VD25H #### [facility] [address] [place] [address] Phosphoruson 07-29-2018 Phosphate mass conc 4.2 mg/dL Normal 2.5-4.5 [facility] Comment on above: Performed By: #### H EMDF, PT, BMP3M, PHOS3, MG3, CK3 #### [address] #### VD25H #### [facility] [address] [place] [address] Procalcitoninon 07-29-2018 Protein mass conc 0.11 ng/mL Abnormal <0.10 [facility] Comment on above: Performed By: #### H EMDF, PT, BMP3M, PHOS3, MG3, CK3 #### [address] #### VD25H #### [facility] [address] [place] [address] Interpretation See Below Normal [facility] Comment on above: Result Comment: PCT <0.50 = Low risk of severe sepsis and/or septic shock. PCT >2.00 = High risk of severe sepsis and/or septic shock. Performed By: #### H EMDF, PT, BMP3M, PHOS3, MG3, CK3 #### [address] #### VD25H #### [facility] [address] [place] [address] Vancomycin Troughon 07-30-19 19 Vancomycin Trough 12.2 ug/mL Low 15.0-20.0 [facility] Comment on above: Result Comment: . Performed By: #### H EMDF, PT, BMP3M, PHOS3, MG3, CK3 #### [address] #### VD25H #### [facility] [address] [place] [address] Basic Metabolic Panelon 03-3 Calcium mass conc 8.6 mg/dL Normal 8.4-10.4 [facility] Comment on above: Performed By: #### H EMDF, PT, BMP3M, PHOS3, MG3, CK3 #### [place] [address] [facility], [place] #### VD25H #### [facility] [address] [place] [address] Glucose mass conc 158 mg/dL High 70-100 [facility] Comment on above: Performed By: #### H EMDF, PT, BMP3M, PHOS3, MG3, CK3 #### [place] [address] [facility], [place] #### VD25H #### [place] [address] [place] [address] Urea nitrogen mass conc 29 mg/dL High 7-20 [facility] Comment on above: Performed By: #### H EMDF, PT, BMP3M, PHOS3, MG3, CK3 #### [place] [address] [facility], [place] #### VD25H #### [facility] [address] [place] [address] Anion gap molar conc 9 Normal [facility] Comment on above: Performed By: #### H EMDF, PT, BMP3M, PHOS3, MG3, CK3 #### [place] [address] [facility], [place] #### VD25H #### [facility] [address] [place] [address] CO2 molar conc 32 mmol/L High 22-30 [facility] Comment on above: Performed By: #### H EMDF, PT, BMP3M, PHOS3, MG3, CK3 #### [place] [address] [facility], [place] #### VD25H #### [facility] [address] [place] [address] Creatinine mass conc 0.61 mg/dL Normal 0.52-1.25 [facility] Comment on above: Performed By: #### H EMDF, PT, BMP3M, PHOS3, MG3, CK3 #### [facility] [address] [place] [address] #### VD25H #### [facility] [address] [place] [address] GFR/1.73 sq M predicted among blacks MDRD vol rate/area (S/P/Bld) mL/min/{1.73_m2} Normal >60 [facility] Comment on above: Performed By: #### H EMDF, PT, BMP3M, PHOS3, MG3, CK3 #### [address] #### VD25H #### [facility] [address] [place] [address] GFR/1.73 sq M predicted among non-blacks MDRD vol rate/area (S/P/Bld) mL/min/{1.73_m2} Normal >60 [facility] Comment on above: Result Comment: Sour ce- MDRD equation with creatinine calibration to IDMS(NKDEP) eGFR not recommended for drug dose adjustment Performed By: #### H EMDF, PT, BMP3M, PHOS3, MG3, CK3 #### [address] #### VD25H #### [facility] [address] [place] [address] Potassium molar conc 3.6 mmol/L Normal 3.5-5.1 [facility] Comment on above: Performed By: #### H EMDF, PT, BMP3M, PHOS3, MG3, CK3 #### [address] #### VD25H #### [facility] [address] [place] [address] Chloride molar conc 100 mmol/L Normal 98-107 [facility] Comment on above: Performed By: #### H EMDF, PT, BMP3M, PHOS3, MG3, CK3 #### [facility] [address] [place] [address] #### VD25H #### [facility] [address] [place] [address] Sodium molar conc 141 mmol/L Normal 135-145 [facility] Comment on above: Performed By: #### H EMDF, PT, BMP3M, PHOS3, MG3, CK3 #### [facility] [address] [place] [address] #### VD25H #### [facility] [address] [place] [address] CR Chest Portableon 07-29-19 19 CR Chest Portable Patient Name: KATHYA HOOPER Diagnostic Radiology Exam Date/Time 07/28/2018 07:09:40 EDT Exam CR Chest Portable Ordering Physician MARIA EUGENIA PEREZ Accession Number [id number] CPT4 Codes 01478 () Reason For Exam ETT placement Report [...] Transcribed Date and Time: 07/28/2018 7:16 Normal [facility] Glucose,Bedsideon 07-28-2018 Glucose mass conc 149 mg/dL High 70-100 [facility] Comment on above: Result Comment: Test performed by glucose meter. Results may be 10%-15% lower than serum/plasma values. (CLIA ID [id number]) Performed By: #### H EMDF, PT, BMP3M, PHOS3, MG3, CK3 #### [address] #### VD25H #### [facility] [address] [place] [address] Glucose mass conc 142 mg/dL High 70-100 [facility] Comment on above: Result Comment: Test performed by glucose meter. Results may be 10%-15% lower than serum/plasma values. (CLIA ID [id number]) Performed By: #### H EMDF, PT, BMP3M, PHOS3, MG3, CK3 #### [address] #### VD25H #### [facility] [address] [place] [address] Hemogram w/ Autodiffon 07-28 Erythrocyte distribution width Ratio (RBC) 13.8 % Normal 11.5-14.5 [facility] Comment on above: Performed By: #### H EMDF, PT, BMP3M, PHOS3, MG3, CK3 #### [address] #### VD25H #### [facility] [address] [place] [address] Hematocrit Volume Fraction (Bld) 33.0 % Low 40.0-52.0 [facility] Comment on above: Performed By: #### H EMDF, PT, BMP3M, PHOS3, MG3, CK3 #### [address] #### VD25H #### [facility] [address] [place] [address] Hemoglobin mass conc (Bld) 11.0 g/dL Low 13.0-18.0 [facility] Comment on above: Performed By: #### H EMDF, PT, BMP3M, PHOS3, MG3, CK3 #### [facility] [address] [place], [place] #### VD25H #### [facility] [address] [place] [address] MCH Entitic mass (RBC) 28.7 pg Normal 26.0-34.0 [facility] Comment on above: Performed By: #### H EMDF, PT, BMP3M, PHOS3, MG3, CK3 #### [place] [address] [place], [place] #### VD25H #### [facility] [address] [place] [address] MCHC mass conc (RBC) 33.4 % Normal 32.0-36.0 [facility] Comment on above: Performed By: #### H EMDF, PT, BMP3M, PHOS3, MG3, CK3 #### [address] #### VD25H #### [facility] [address] [place] [address] MCV Entitic volume (RBC) 86.0 fL Normal 80.0-98.0 [facility] Comment on above: Performed By: #### H EMDF, PT, BMP3M, PHOS3, MG3, CK3 #### [address] #### VD25H #### [facility] [address] [place] [address] Platelet mean volume Entitic volume (Bld) 8.4 fL Normal 7.4-10.4 [facility] Comment on above: Performed By: #### H EMDF, PT, BMP3M, PHOS3, MG3, CK3 #### [address] #### VD25H #### [facility] [address] [place] [address] Platelets #/vol (Bld) 477 10*3/uL High 140-440 [facility] Comment on above: Performed By: #### H EMDF, PT, BMP3M, PHOS3, MG3, CK3 #### [address] #### VD25H #### [facility] [address] [place] [address] RBC #/vol (Bld) 3.84 10*6/uL Low 4.40-5.90 [facility] Comment on above: Performed By: #### H EMDF, PT, BMP3M, PHOS3, MG3, CK3 #### [address] #### VD25H #### [facility] [address] [place] [address] WBC #/vol (Bld) 18.1 10*3/uL High 3.6-10.7 [facility] Comment on above: Performed By: #### H EMDF, PT, BMP3M, PHOS3, MG3, CK3 #### [address] #### VD25H #### [place] [address] [place] [address] Magnesiumon 07-28-2018 Magnesium mass conc 2.4 mg/dL High 1.6-2.3 [facility] Comment on above: Performed By: #### H EMDF, PT, BMP3M, PHOS3, MG3, CK3 #### [address] #### VD25H #### [facility] [address] [place] [address] Manual Diffon 07-28-2018 Abs Neutrophile Cnt 14.8 10*3/uL High 2.2-8.2 [facility] Comment on above: Performed By: #### H EMDF, PT, BMP3M, PHOS3, MG3, CK3 #### [address] #### VD25H #### [place] [address] [place] [address] Anisocytosis Ql (Bld) Slight Normal [facility] Comment on above: Performed By: #### H EMDF, PT, BMP3M, PHOS3, MG3, CK3 #### [place] [place], [place] #### VD25H #### [facility] [address] [place] [address] Hypochromia Slight Normal [facility] Comment on above: Performed By: #### H EMDF, PT, BMP3M, PHOS3, MG3, CK3 #### [place] [place], [place] #### VD25H #### [facility] [address] [place] [address] Lymphocytes #/vol (Bld) 1.3 10*3/uL Normal 1.1-4.5 [facility] Comment on above: Performed By: #### H EMDF, PT, BMP3M, PHOS3, MG3, CK3 #### [address] #### VD25H #### [facility] [address] [place] [address] Lymphocytes/100 WBC (Bld) 7 % Low 20-40 [facility] Comment on above: Performed By: #### H EMDF, PT, BMP3M, PHOS3, MG3, CK3 #### [address] #### VD25H #### [facility] [address] [place] [address] Microcytosis Slight Normal [facility] Comment on above: Performed By: #### H EMDF, PT, BMP3M, PHOS3, MG3, CK3 #### [address] #### VD25H #### [facility] [address] [place] [address] Monocytes #/vol (Bld) 2.0 10*3/uL High 0.2-1.1 [facility] Comment on above: Performed By: #### H EMDF, PT, BMP3M, PHOS3, MG3, CK3 #### [place] [place], [place] #### VD25H #### [facility] [address] [place] [address] Monocytes/100 WBC (Bld) 11 % High 2-10 [facility] Comment on above: Performed By: #### H EMDF, PT, BMP3M, PHOS3, MG3, CK3 #### [address] [place], [place] #### VD25H #### [facility] [address] [place] [address] RBC morphology finding Nom (Bld) ABNORMAL Normal [facility] Comment on above: Performed By: #### H EMDF, PT, BMP3M, PHOS3, MG3, CK3 #### [address] #### VD25H #### [facility] [address] [place] [address] Seg Neutrophils 82 % High 40-[address] [facility] Comment on above: Performed By: #### H EMDF, PT, BMP3M, PHOS3, MG3, CK3 #### [address] #### VD25H #### [facility] [address] [place] [address] Abs Baso Cnt 0.0 10*3/uL Normal 0.0-0.2 [facility] Comment on above: Performed By: #### H EMDF, PT, BMP3M, PHOS3, MG3, CK3 #### [address] [place], [place] #### VD25H #### [facility] [address] [place] [address] Bands 0 % Normal 0-3 [facility] Comment on above: Performed By: #### H EMDF, PT, BMP3M, PHOS3, MG3, CK3 #### [facility] [address] [place], [place] #### VD25H #### [facility] [address] [place] [address] Basophils/100 WBC (Bld) 0 % Normal 0-2 [facility] Comment on above: Performed By: #### H EMDF, PT, BMP3M, PHOS3, MG3, CK3 #### [place] [address] [place], [place] #### VD25H #### [facility] [address] [place] [address] Cells counted 100 Normal [facility] Comment on above: Performed By: #### H EMDF, PT, BMP3M, PHOS3, MG3, CK3 #### [address] #### VD25H #### [facility] [address] [place] [address] Eosinophils #/vol (Bld) 0.0 10*3/uL Normal 0.0-0.5 [facility] Comment on above: Performed By: #### H EMDF, PT, BMP3M, PHOS3, MG3, CK3 #### [address] #### VD25H #### [facility] [address] [place] [address] Eosinophils/100 WBC (Bld) 0 % Low 1-6 [facility] Comment on above: Performed By: #### H EMDF, PT, BMP3M, PHOS3, MG3, CK3 #### [address] #### VD25H #### [facility] [address] [place] [address] Phosphoruson 07-28-2018 Phosphate mass conc 4.4 mg/dL Normal 2.5-4.5 [facility] Comment on above: Performed By: #### H EMDF, PT, BMP3M, PHOS3, MG3, CK3 #### [address] #### VD25H #### [facility] [address] [place] [address] Vancomycin Troughon 07-29-19 19 Vancomycin Trough 12.9 ug/mL Low 15.0-20.0 [facility] Comment on above: Result Comment: . Performed By: #### H EMDF, PT, BMP3M, PHOS3, MG3, CK3 #### [address] #### VD25H #### [place] [address] [place] [address] Arterial Blood Gaseson 07-27 CO2 molar conc 28.4 mmol/L High 23.0-27.[address] [facility] Comment on above: Performed By: #### H EMDF, PT, BMP3M, PHOS3, MG3, CK3 #### [address] #### VD25H #### [place] [address] [place] [address] HCO3 molar conc (Bld) 27.2 mmol/L High 21.0-25.0 [facility] Comment on above: Performed By: #### H EMDF, PT, BMP3M, PHOS3, MG3, CK3 #### [address] #### VD25H #### [facility] [address] [place] [address] Hemoglobin mass conc (Bld) 11.7 g/dL Normal ScreenOnly [facility] Comment on above: Performed By: #### H EMDF, PT, BMP3M, PHOS3, MG3, CK3 #### [address] #### VD25H #### [place] [address] [place] [address] Oxygen ppres (Bld) 91.3 mm[Hg] Normal 80.0-100.0 [facility] Comment on above: Performed By: #### H EMDF, PT, BMP3M, PHOS3, MG3, CK3 #### [address] [place], [place] #### VD25H #### [facility] [address] [place] [address] Oxygen saturation in Blood 96.9 % Normal 95.0-100.0 [facility] Comment on above: Performed By: #### H EMDF, PT, BMP3M, PHOS3, MG3, CK3 #### [address] [place], [place] #### VD25H #### [facility] [address] [place] [address] pCO2 39.0 mm[Hg] Normal 35.0-45.0 [facility] Comment on above: Performed By: #### H EMDF, PT, BMP3M, PHOS3, MG3, CK3 #### [address] #### VD25H #### [facility] [address] [place] [address] pH (Bld) 7.461 High 7.350-7.450 [facility] Comment on above: Performed By: #### H EMDF, PT, BMP3M, PHOS3, MG3, CK3 #### [address] #### VD25H #### [facility] [address] [place] [address] Std Base Excess 3.2 mmol/L High -3.0-3.[address] [facility] Comment on above: Performed By: #### H EMDF, PT, BMP3M, PHOS3, MG3, CK3 #### [address] #### VD25H #### [facility] [address] [place] [address] FIO2 No data Normal [facility] Comment on above: Performed By: #### H EMDF, PT, BMP3M, PHOS3, MG3, CK3 #### [facility] [address] [facility], [place] #### VD25H #### [facility] [address] [place] [address] Basic Metabolic Panelon 03-2 Anion gap molar conc 12 Normal [facility] Comment on above: Performed By: #### H EMDF, PT, BMP3M, PHOS3, MG3, CK3 #### [place] [address] [facility], [place] #### VD25H #### [facility] [address] [place] [address] Calcium mass conc 8.3 mg/dL Low 8.4-10.4 [facility] Comment on above: Performed By: #### H EMDF, PT, BMP3M, PHOS3, MG3, CK3 #### [place] [address] [place], [place] #### VD25H #### [facility] [address] [place] [address] CO2 molar conc 28 mmol/L Normal 22-30 [facility] Comment on above: Performed By: #### H EMDF, PT, BMP3M, PHOS3, MG3, CK3 #### [place] [address] [facility] #### VD25H #### [facility] [address] [place] [address] Glucose mass conc 156 mg/dL High 70-100 [facility] Comment on above: Performed By: #### H EMDF, PT, BMP3M, PHOS3, MG3, CK3 #### [place] [address] [facility], [place] #### VD25H #### [facility] [address] [place] [address] Urea nitrogen mass conc 21 mg/dL High 7-20 [facility] Comment on above: Performed By: #### H EMDF, PT, BMP3M, PHOS3, MG3, CK3 #### [address] #### VD25H #### [facility] [address] [place] [address] Creatinine mass conc 0.53 mg/dL Normal 0.52-1.25 [facility] Comment on above: Performed By: #### H EMDF, PT, BMP3M, PHOS3, MG3, CK3 #### [address] #### VD25H #### [place] [address] [place] [address] GFR/1.73 sq M predicted among blacks MDRD vol rate/area (S/P/Bld) mL/min/{1.73_m2} Normal >60 [facility] Comment on above: Performed By: #### H EMDF, PT, BMP3M, PHOS3, MG3, CK3 #### [address] #### VD25H #### [address] [place] [address] GFR/1.73 sq M predicted among non-blacks MDRD vol rate/area (S/P/Bld) mL/min/{1.73_m2} Normal >60 [facility] Comment on above: Result Comment: Sour ce- MDRD equation with creatinine calibration to IDMS(NKDEP) eGFR not recommended for drug dose adjustment Performed By: #### H EMDF, PT, BMP3M, PHOS3, MG3, CK3 #### [address] #### VD25H #### [address] [place] [address] Potassium molar conc 3.2 mmol/L Low 3.5-5.1 [facility] Comment on above: Performed By: #### H EMDF, PT, BMP3M, PHOS3, MG3, CK3 #### [address] #### VD25H #### [address] [place] [address] Chloride molar conc 99 mmol/L Normal 98-107 [facility] Comment on above: Performed By: #### H EMDF, PT, BMP3M, PHOS3, MG3, CK3 #### [facility] [address] [place] [address] #### VD25H #### [facility] [address] [place] [address] Sodium molar conc 139 mmol/L Normal 135-145 [facility] Comment on above: Performed By: #### H EMDF, PT, BMP3M, PHOS3, MG3, CK3 #### [facility] [address] [place] [address] #### VD25H #### [facility] [address] [place] [address] CR Chest Portableon 07-28-19 19 CR Chest Portable Patient Name: KATHYA HOOPER Diagnostic Radiology Exam Date/Time 07/27/2018 07:08:59 EDT Exam CR Chest Portable Ordering Physician MARIA EUGENIA PEREZ Accession Number [id number] CPT4 Codes 91792 () Reason For Exam ETT placement Report [...] Transcribed Date and Time: 07/27/2018 8:02 Normal [facility] Glucose,Bedsideon 07-27-2018 Glucose mass conc 151 mg/dL High 70-100 [facility] Comment on above: Result Comment: Test performed by glucose meter. Results may be 10%-15% lower than serum/plasma values. (CLIA ID [id number]) Performed By: #### H EMDF, PT, BMP3M, PHOS3, MG3, CK3 #### [facility] [address] [place], [place] #### VD25H #### [facility] [address] [place] [address] Glucose mass conc 131 mg/dL High 70-100 [facility] Comment on above: Result Comment: Test performed by glucose meter. Results may be 10%-15% lower than serum/plasma values. (CLIA ID [id number]) Performed By: #### H EMDF, PT, BMP3M, PHOS3, MG3, CK3 #### [facility] [address] [place] [address] #### VD25H #### [facility] [address] [place] [address] Glucose mass conc 123 mg/dL High 70-100 [facility] Comment on above: Result Comment: Test performed by glucose meter. Results may be 10%-15% lower than serum/plasma values. (CLIA ID [id number]) Performed By: #### H EMDF, PT, BMP3M, PHOS3, MG3, CK3 #### [facility] [address] [place] [address] #### VD25H #### [facility] [address] [place] [address] Glucose mass conc 133 mg/dL High 70-100 [facility] Comment on above: Result Comment: Test performed by glucose meter. Results may be 10%-15% lower than serum/plasma values. (CLIA ID [id number]) Performed By: #### H EMDF, PT, BMP3M, PHOS3, MG3, CK3 #### [facility] [address] [place] [address] #### VD25H #### [place] [address] [place] [address] Hemogram w/ Autodiffon 07-27 Erythrocyte distribution width Ratio (RBC) 13.5 % Normal 11.5-14.5 [facility] Comment on above: Performed By: #### H EMDF, PT, BMP3M, PHOS3, MG3, CK3 #### [address] #### VD25H #### [place] [address] [place] [address] Hematocrit Volume Fraction (Bld) 32.5 % Low 40.0-52.0 [facility] Comment on above: Performed By: #### H EMDF, PT, BMP3M, PHOS3, MG3, CK3 #### [address] #### VD25H #### [address] [place] [address] Hemoglobin mass conc (Bld) 11.1 g/dL Low 13.0-18.0 [facility] Comment on above: Performed By: #### H EMDF, PT, BMP3M, PHOS3, MG3, CK3 #### [address] #### VD25H #### [place] [address] [place] [address] MCH Entitic mass (RBC) 29.2 pg Normal 26.0-34.0 [facility] Comment on above: Performed By: #### H EMDF, PT, BMP3M, PHOS3, MG3, CK3 #### [address] #### VD25H #### [place] [address] [place] [address] MCHC mass conc (RBC) 34.1 % Normal 32.0-36.0 [facility] Comment on above: Performed By: #### H EMDF, PT, BMP3M, PHOS3, MG3, CK3 #### [address] [place], [place] #### VD25H #### [facility] [address] [place] [address] MCV Entitic volume (RBC) 85.7 fL Normal 80.0-98.0 [facility] Comment on above: Performed By: #### H EMDF, PT, BMP3M, PHOS3, MG3, CK3 #### [address] #### VD25H #### [facility] [address] [place] [address] Platelet mean volume Entitic volume (Bld) 7.9 fL Normal 7.4-10.4 [facility] Comment on above: Performed By: #### H EMDF, PT, BMP3M, PHOS3, MG3, CK3 #### [address] #### VD25H #### [place] [address] [place] [address] Platelets #/vol (Bld) 466 10*3/uL High 140-440 [facility] Comment on above: Performed By: #### H EMDF, PT, BMP3M, PHOS3, MG3, CK3 #### [address] #### VD25H #### [facility] [address] [place] [address] RBC #/vol (Bld) 3.79 10*6/uL Low 4.40-5.90 [facility] Comment on above: Performed By: #### H EMDF, PT, BMP3M, PHOS3, MG3, CK3 #### [address] #### VD25H #### [facility] [address] [place] [address] WBC #/vol (Bld) 18.7 10*3/uL High 3.6-10.7 [facility] Comment on above: Performed By: #### H EMDF, PT, BMP3M, PHOS3, MG3, CK3 #### [address] [place], [place] #### VD25H #### [facility] [address] [place] [address] Magnesiumon 07-27-2018 Magnesium mass conc 2.1 mg/dL Normal 1.6-2.3 [facility] Comment on above: Performed By: #### H EMDF, PT, BMP3M, PHOS3, MG3, CK3 #### [address] [place], [place] #### VD25H #### [place] [address] [place] [address] Manual Diffon 07-27-2018 RBC morphology finding Nom (Bld) Normal Normal [facility] Comment on above: Performed By: #### H EMDF, PT, BMP3M, PHOS3, MG3, CK3 #### [address] #### VD25H #### [place] [address] [place] [address] Abs Neutrophile Cnt 14.2 10*3/uL High 2.2-8.2 [facility] Comment on above: Performed By: #### H EMDF, PT, BMP3M, PHOS3, MG3, CK3 #### [address] #### VD25H #### [place] [address] [place] [address] Atypical Lymphocytes 2 % Abnormal <1 [facility] Comment on above: Performed By: #### H EMDF, PT, BMP3M, PHOS3, MG3, CK3 #### [address] #### VD25H #### [place] [address] [place] [address] Bands 5 % High 0-3 [facility] Comment on above: Performed By: #### H EMDF, PT, BMP3M, PHOS3, MG3, CK3 #### [facility] [address] [place], [place] #### VD25H #### [facility] [address] [place] [address] Eosinophils #/vol (Bld) 0.6 10*3/uL High 0.0-0.5 [facility] Comment on above: Performed By: #### H EMDF, PT, BMP3M, PHOS3, MG3, CK3 #### [address] [place], [place] #### VD25H #### [facility] [address] [place] [address] Eosinophils/100 WBC (Bld) 3 % Normal 1-6 [facility] Comment on above: Performed By: #### H EMDF, PT, BMP3M, PHOS3, MG3, CK3 #### [address] [address] [place], [place] #### VD25H #### [facility] [address] [place] [address] Lymphocytes #/vol (Bld) 2.1 10*3/uL Normal 1.1-4.5 [facility] Comment on above: Performed By: #### H EMDF, PT, BMP3M, PHOS3, MG3, CK3 #### [address] [place], [place] #### VD25H #### [facility] [address] [place] [address] Lymphocytes/100 WBC (Bld) 11 % Low 20-40 [facility] Comment on above: Performed By: #### H EMDF, PT, BMP3M, PHOS3, MG3, CK3 #### [address] [place], [place] #### VD25H #### [facility] [address] [place] [address] Monocytes #/vol (Bld) 1.5 10*3/uL High 0.2-1.1 [facility] Comment on above: Performed By: #### H EMDF, PT, BMP3M, PHOS3, MG3, CK3 #### [address] [place], [place] #### VD25H #### [facility] [address] [place] [address] Monocytes/100 WBC (Bld) 8 % Normal 2-10 [facility] Comment on above: Performed By: #### H EMDF, PT, BMP3M, PHOS3, MG3, CK3 #### [address] [place], [place] #### VD25H #### [facility] [address] [place] [address] NRBC 1 /100{WBCs} High -1-0 [facility] Comment on above: Result Comment: Newb orn (<60 days) 1-10 Adult <1 Performed By: #### H EMDF, PT, BMP3M, PHOS3, MG3, CK3 #### [address] [place], [place] #### VD25H #### [facility] [address] [place] [address] Seg Neutrophils 71 % Normal 40-[address] [facility] Comment on above: Performed By: #### H EMDF, PT, BMP3M, PHOS3, MG3, CK3 #### [address] #### VD25H #### [facility] [address] [place] [address] Abs Baso Cnt 0.0 10*3/uL Normal 0.0-0.2 [facility] Comment on above: Performed By: #### H EMDF, PT, BMP3M, PHOS3, MG3, CK3 #### [address] [place], [place] #### VD25H #### [facility] [address] [place] [address] Basophils/100 WBC (Bld) 0 % Normal 0-2 [facility] Comment on above: Performed By: #### H EMDF, PT, BMP3M, PHOS3, MG3, CK3 #### [facility] [address] [place], [place] #### VD25H #### [facility] [address] [place] [address] Cells counted 100 Normal [facility] Comment on above: Performed By: #### H EMDF, PT, BMP3M, PHOS3, MG3, CK3 #### [facility] [address] [place], [place] #### VD25H #### [facility] [address] [place] [address] Phosphoruson 07-27-2018 Phosphate mass conc 3.0 mg/dL Normal 2.5-4.5 [facility] Comment on above: Performed By: #### H EMDF, PT, BMP3M, PHOS3, MG3, CK3 #### [facility] [address] [place], [place] #### VD25H #### [facility] [address] [place] [address] VL Venous Duplex US Lower Ex t Bilateralon 07-27-2018 VL Venous Duplex US Lower Ext Bilateral Patient Name: KATHYA HOOPER Ultrasound Exam Date/Time 07/27/2018 10:56:18 EDT Exam VL Venous Duplex US Lower Ext Bilateral Ordering Physician ETIENNE MARTÍNEZ JULIE Accession Number [id number] CPT4 Codes 95921 () Reason For Exam edema Report [facility] --- Lower Extremity Venous Duplex Report Patient Name: Kathya Hooper : 1955 Study Date: 07/27/2018 W (63yrs) Age: 63 Account: [id number] Gender: M Loc: T209 BP: Ordering: Yesenia Martínez Technologist: Ordering Physician: Yesenia Martínez Ankle Patch Molder: Mary Man RVT Interpreting Physician: Ricardo Hall MD --- Location: [facility] --- INDICATIONS: Bilateral leg [...] performed. The images were obtained using a Yelago E9 vascular ultrasound machine. The study was [...] --+ Electronically signed by: Ricardo Hall MD [id number] Final Dictated: 07/27/2018 12:55 pm Dictating Physician: RICARDO HALL Signed Date and Time: 07/27/2018 12:55 pm Signed by: RICARDO HALL [facility] Basic Metabolic Panelon 03-2 Calcium mass conc 7.9 mg/dL Low 8.4-10.4 [facility] Comment on above: Performed By: #### H EMDF, PT, BMP3M, PHOS3, MG3, CK3 #### [facility] [address] [place] [address] #### VD25H #### [facility] [address] [place] [address] Anion gap molar conc 9 Normal [email or web address] [facility] Comment on above: Performed By: #### H EMDF, PT, BMP3M, PHOS3, MG3, CK3 #### [address] #### VD25H #### [facility] [address] [place] [address] CO2 molar conc 24 mmol/L Normal 22-30 [facility] Comment on above: Performed By: #### H EMDF, PT, BMP3M, PHOS3, MG3, CK3 #### [address] #### VD25H #### [facility] [address] [place] [address] Creatinine mass conc 0.54 mg/dL Normal 0.52-1.25 [facility] Comment on above: Performed By: #### H EMDF, PT, BMP3M, PHOS3, MG3, CK3 #### [address] #### VD25H #### [place] [address] [place] [address] GFR/1.73 sq M predicted among blacks MDRD vol rate/area (S/P/Bld) mL/min/{1.73_m2} Normal >60 [facility] Comment on above: Performed By: #### H EMDF, PT, BMP3M, PHOS3, MG3, CK3 #### [address] #### VD25H #### [place] [address] [place] [address] GFR/1.73 sq M predicted among non-blacks MDRD vol rate/area (S/P/Bld) mL/min/{1.73_m2} Normal >60 [facility] Comment on above: Result Comment: Sour ce- MDRD equation with creatinine calibration to IDMS(NKDEP) eGFR not recommended for drug dose adjustment Performed By: #### H EMDF, PT, BMP3M, PHOS3, MG3, CK3 #### [address] #### VD25H #### [facility] [address] [place] [address] Glucose mass conc 166 mg/dL High 70-100 [facility] Comment on above: Performed By: #### H EMDF, PT, BMP3M, PHOS3, MG3, CK3 #### [address] [facility], [place] #### VD25H #### [facility] [address] [place] [address] Urea nitrogen mass conc 21 mg/dL High 7-20 [facility] Comment on above: Performed By: #### H EMDF, PT, BMP3M, PHOS3, MG3, CK3 #### [address] [facility], [place] #### VD25H #### [facility] [address] [place] [address] Chloride molar conc 107 mmol/L Normal 98-107 [facility] Comment on above: Performed By: #### H EMDF, PT, BMP3M, PHOS3, MG3, CK3 #### [address] [facility], [place] #### VD25H #### [facility] [address] [place] [address] Potassium molar conc 3.7 mmol/L Normal 3.5-5.1 [facility] Comment on above: Performed By: #### H EMDF, PT, BMP3M, PHOS3, MG3, CK3 #### [address] [facility], [place] #### VD25H #### [facility] [address] [place] [address] Sodium molar conc 140 mmol/L Normal 135-145 [facility] Comment on above: Performed By: #### H EMDF, PT, BMP3M, PHOS3, MG3, CK3 #### [address] [facility], [place] #### VD25H #### [facility] [address] [place] [address] CR Chest Portableon 07-27-19 19 CR Chest Portable Patient Name: KATHYA HOOPER Diagnostic Radiology Exam Date/Time 07/26/2018 06:06:25 EDT Exam CR Chest Portable Ordering Physician MARIA EUGENIA PEREZ Accession Number [id number] CPT4 Codes 29316 () Reason For Exam ETT placement Report [...] Transcribed Date and Time: 07/26/2018 9:15 Normal [facility] Gl[facility],Bedsideon 07-26-2018 Glucose mass conc 160 mg/dL High 70-100 [employer] [facility] Comment on above: Result Comment: Test performed by glucose meter. Results may be 10%-15% lower than serum/plasma values. (CLIA ID [id number]) Performed By: #### H EMDF, PT, BMP3M, PHOS3, MG3, CK3 #### [facility] [address] [place] [address] #### VD25H #### [facility] [address] [place] [address] Glucose mass conc 166 mg/dL High 70-100 [employer] [facility] Comment on above: Result Comment: Test performed by glucose meter. Results may be 10%-15% lower than serum/plasma values. (CLIA ID [id number]) Performed By: #### H EMDF, PT, BMP3M, PHOS3, MG3, CK3 #### [facility] [address] [place], [place] #### VD25H #### [facility] [address] [place] [address] Glucose mass conc 183 mg/dL High 70-100 [facility] Comment on above: Result Comment: Test performed by glucose meter. Results may be 10%-15% lower than serum/plasma values. (CLIA ID [id number]) Performed By: #### H EMDF, PT, BMP3M, PHOS3, MG3, CK3 #### [facility] [address] [place] [address] #### VD25H #### [employer] [facility] [address] [place] [address] Glucose mass conc 151 mg/dL High 70-100 [facility] Comment on above: Result Comment: Test performed by glucose meter. Results may be 10%-15% lower than serum/plasma values. (CLIA ID [id number]) Performed By: #### H EMDF, PT, BMP3M, PHOS3, MG3, CK3 #### [employer] [address] #### VD25H #### [facility] [address] [place] [address] Hemogram w/ Autodiffon 07-26 Erythrocyte distribution width Ratio (RBC) 13.7 % Normal 11.5-14.5 [facility] Comment on above: Performed By: #### H EMDF, PT, BMP3M, PHOS3, MG3, CK3 #### [employer] [address] #### VD25H #### [facility] [address] [place] [address] Hematocrit Volume Fraction (Bld) 31.1 % Low 40.0-52.0 [facility] Comment on above: Performed By: #### H EMDF, PT, BMP3M, PHOS3, MG3, CK3 #### [address] #### VD25H #### [facility] [address] [place] [address] Hemoglobin mass conc (Bld) 10.6 g/dL Low 13.0-18.0 [facility] Comment on above: Performed By: #### H EMDF, PT, BMP3M, PHOS3, MG3, CK3 #### [address] #### VD25H #### [facility] [address] [place] [address] MCH Entitic mass (RBC) 29.2 pg Normal 26.0-34.0 [facility] Comment on above: Performed By: #### H EMDF, PT, BMP3M, PHOS3, MG3, CK3 #### [address] #### VD25H #### [place] [address] [place] [address] MCHC mass conc (RBC) 34.0 % Normal 32.0-36.0 [facility] Comment on above: Performed By: #### H EMDF, PT, BMP3M, PHOS3, MG3, CK3 #### [address] #### VD25H #### [facility] [address] [place] [address] MCV Entitic volume (RBC) 86.1 fL Normal 80.0-98.0 [facility] Comment on above: Performed By: #### H EMDF, PT, BMP3M, PHOS3, MG3, CK3 #### [address] #### VD25H #### [facility] [address] [place] [address] Platelet mean volume Entitic volume (Bld) 8.3 fL Normal 7.4-10.4 [facility] Comment on above: Performed By: #### H EMDF, PT, BMP3M, PHOS3, MG3, CK3 #### [address] [place], [place] #### VD25H #### [facility] [address] [place] [address] Platelets #/vol (Bld) 364 10*3/uL Normal 140-440 [facility] Comment on above: Performed By: #### H EMDF, PT, BMP3M, PHOS3, MG3, CK3 #### [address] [place], [place] #### VD25H #### [place] [address] [place] [address] RBC #/vol (Bld) 3.62 10*6/uL Low 4.40-5.90 [facility] Comment on above: Performed By: #### H EMDF, PT, BMP3M, PHOS3, MG3, CK3 #### [address] #### VD25H #### [place] [address] [place] [address] WBC #/vol (Bld) 15.2 10*3/uL High 3.6-10.7 [facility] Comment on above: Performed By: #### H EMDF, PT, BMP3M, PHOS3, MG3, CK3 #### [address] #### VD25H #### [place] [address] [place] [address] Magnesiumon 07-26-2018 Magnesium mass conc 2.0 mg/dL Normal 1.6-2.3 [facility] Comment on above: Performed By: #### H EMDF, PT, BMP3M, PHOS3, MG3, CK3 #### [address] #### VD25H #### [place] [address] [place] [address] Manual Diffon 07-26-2018 Abs Neutrophile Cnt 12.8 10*3/uL High 2.2-8.2 [facility] Comment on above: Performed By: #### H EMDF, PT, BMP3M, PHOS3, MG3, CK3 #### [facility] [address] [place], [place] #### VD25H #### [facility] [address] [place] [address] Lymphocytes #/vol (Bld) 1.4 10*3/uL Normal 1.1-4.5 [facility] Comment on above: Performed By: #### H EMDF, PT, BMP3M, PHOS3, MG3, CK3 #### [address] [place], [place] #### VD25H #### [facility] [address] [place] [address] Lymphocytes/100 WBC (Bld) 9 % Low 20-40 [facility] Comment on above: Performed By: #### H EMDF, PT, BMP3M, PHOS3, MG3, CK3 #### [address] [place], [place] #### VD25H #### [facility] [address] [place] [address] Monocytes #/vol (Bld) 1.1 10*3/uL Normal 0.2-1.1 [facility] Comment on above: Performed By: #### H EMDF, PT, BMP3M, PHOS3, MG3, CK3 #### [address] [place], [place] #### VD25H #### [facility] [address] [place] [address] Monocytes/100 WBC (Bld) 7 % Normal 2-10 [facility] Comment on above: Performed By: #### H EMDF, PT, BMP3M, PHOS3, MG3, CK3 #### [address] [place], [place] #### VD25H #### [facility] [address] [place] [address] RBC morphology finding Nom (Bld) Normal Normal [facility] Comment on above: Performed By: #### H EMDF, PT, BMP3M, PHOS3, MG3, CK3 #### [address] [place], [place] #### VD25H #### [facility] [address] [place] [address] Seg Neutrophils 84 % High 40-[address] [facility] Comment on above: Performed By: #### H EMDF, PT, BMP3M, PHOS3, MG3, CK3 #### [address] [address] [place] #### VD25H #### [facility] [address] [place] [address] Abs Baso Cnt 0.0 10*3/uL Normal 0.0-0.2 [facility] Comment on above: Performed By: #### H EMDF, PT, BMP3M, PHOS3, MG3, CK3 #### [address] [address] [place], [place] #### VD25H #### [facility] [address] [place] [address] Bands 0 % Normal 0-3 [facility] Comment on above: Performed By: #### H EMDF, PT, BMP3M, PHOS3, MG3, CK3 #### [address] #### VD25H #### [facility] [address] [place] [address] Basophils/100 WBC (Bld) 0 % Normal 0-2 [facility] Comment on above: Performed By: #### H EMDF, PT, BMP3M, PHOS3, MG3, CK3 #### [address] #### VD25H #### [facility] [address] [place] [address] Cells counted 100 Normal [facility] Comment on above: Performed By: #### H EMDF, PT, BMP3M, PHOS3, MG3, CK3 #### [address] #### VD25H #### [facility] [address] [place] [address] Eosinophils #/vol (Bld) 0.0 10*3/uL Normal 0.0-0.5 [facility] Comment on above: Performed By: #### H EMDF, PT, BMP3M, PHOS3, MG3, CK3 #### [address] #### VD25H #### [facility] [address] [place] [address] Eosinophils/100 WBC (Bld) 0 % Low 1-6 [facility] Comment on above: Performed By: #### H EMDF, PT, BMP3M, PHOS3, MG3, CK3 #### [address] #### VD25H #### [facility] [address] [place] [address] Phosphoruson 07-26-2018 Phosphate mass conc 3.1 mg/dL Normal 2.5-4.5 [facility] Comment on above: Performed By: #### H EMDF, PT, BMP3M, PHOS3, MG3, CK3 #### [address] #### VD25H #### [facility] [address] [place] [address] Vancomycin Troughon 07-27-19 19 Vancomycin Trough 8.9 ug/mL Low 15.0-20.0 [facility] Comment on above: Result Comment: . Performed By: #### H EMDF, PT, BMP3M, PHOS3, MG3, CK3 #### [address] #### VD25H #### [facility] [address] [place] [address] Arterial Blood Gaseson 07-25 CO2 molar conc 22.0 mmol/L Low 23.0-27.0 [facility] Comment on above: Performed By: #### H EMDF, PT, BMP3M, PHOS3, MG3, CK3 #### [facility] [address] [place] #### VD25H #### [facility] [address] [place] [address] HCO3 molar conc (Bld) 21.1 mmol/L Normal 21.0-25.0 [facility] Comment on above: Performed By: #### H EMDF, PT, BMP3M, PHOS3, MG3, CK3 #### [address] #### VD25H #### [facility] [address] [place] [address] Hemoglobin mass conc (Bld) 10.1 g/dL Normal ScreenOnly [facility] Comment on above: Performed By: #### H EMDF, PT, BMP3M, PHOS3, MG3, CK3 #### [address] #### VD25H #### [facility] [address] [place] [address] Oxygen ppres (Bld) 88.3 mm[Hg] Normal 80.0-100.0 [facility] Comment on above: Performed By: #### H EMDF, PT, BMP3M, PHOS3, MG3, CK3 #### [address] #### VD25H #### [facility] [address] [place] [address] Oxygen saturation in Blood 96.8 % Normal 95.0-100.0 [facility] Comment on above: Performed By: #### H EMDF, PT, BMP3M, PHOS3, MG3, CK3 #### [address] #### VD25H #### [facility] [address] [place] [address] pCO2 29.9 mm[Hg] Low 35.0-45.0 [facility] Comment on above: Performed By: #### H EMDF, PT, BMP3M, PHOS3, MG3, CK3 #### [facility] [address] [place], [place] #### VD25H #### [facility] [address] [place] [address] pH (Bld) 7.467 High 7.350-7.450 [facility] Comment on above: Performed By: #### H EMDF, PT, BMP3M, PHOS3, MG3, CK3 #### [address] [place], [place] #### VD25H #### [facility] [address] [place] [address] Std Base Excess -1.9 mmol/L Normal -3.0-3.0 [facility] Comment on above: Performed By: #### H EMDF, PT, BMP3M, PHOS3, MG3, CK3 #### [address] [place], [place] #### VD25H #### [facility] [address] [place] [address] FIO2 .30 Normal [facility] Comment on above: Performed By: #### H EMDF, PT, BMP3M, PHOS3, MG3, CK3 #### [address] #### VD25H #### [facility] [address] [place] [address] Basic Metabolic Panelon 03-2 Calcium mass conc 8.1 mg/dL Low 8.4-10.4 [facility] Comment on above: Performed By: #### H EMDF, PT, BMP3M, PHOS3, MG3, CK3 #### [address] [place], [place] #### VD25H #### [facility] [address] [place] [address] Anion gap molar conc 8 Normal [facility] Comment on above: Performed By: #### H EMDF, PT, BMP3M, PHOS3, MG3, CK3 #### [address] #### VD25H #### [facility] [address] [place] [address] CO2 molar conc 24 mmol/L Normal 22-30 [facility] Comment on above: Performed By: #### H EMDF, PT, BMP3M, PHOS3, MG3, CK3 #### [address] #### VD25H #### [facility] [address] [place] [address] Creatinine mass conc 0.55 mg/dL Normal 0.52-1.25 [facility] Comment on above: Performed By: #### H EMDF, PT, BMP3M, PHOS3, MG3, CK3 #### [address] #### VD25H #### [facility] [address] [place] [address] GFR/1.73 sq M predicted among blacks MDRD vol rate/area (S/P/Bld) mL/min/{1.73_m2} Normal >60 [facility] Comment on above: Performed By: #### H EMDF, PT, BMP3M, PHOS3, MG3, CK3 #### [address] #### VD25H #### [facility] [address] [place] [address] GFR/1.73 sq M predicted among non-blacks MDRD vol rate/area (S/P/Bld) mL/min/{1.73_m2} Normal >60 [facility] Comment on above: Result Comment: Sour ce- MDRD equation with creatinine calibration to IDMS(NKDEP) eGFR not recommended for drug dose adjustment Performed By: #### H EMDF, PT, BMP3M, PHOS3, MG3, CK3 #### [facility] [address] [facility] [place] #### VD25H #### [facility] [address] [place] [address] Glucose mass conc 184 mg/dL High 70-100 [facility] Comment on above: Performed By: #### H EMDF, PT, BMP3M, PHOS3, MG3, CK3 #### [facility] [address] [facility] [place], [place] #### VD25H #### [facility] [address] [place] [address] Urea nitrogen mass conc 20 mg/dL Normal 7-20 [facility] Comment on above: Performed By: #### H EMDF, PT, BMP3M, PHOS3, MG3, CK3 #### [place] [address] [facility] [place] #### VD25H #### [facility] [address] [place] [address] Chloride molar conc 109 mmol/L High 98-107 [facility] Comment on above: Performed By: #### H EMDF, PT, BMP3M, PHOS3, MG3, CK3 #### [place] [address] [facility] [place] #### VD25H #### [facility] [address] [place] [address] Potassium molar conc 4.0 mmol/L Normal 3.5-5.1 [facility] Comment on above: Performed By: #### H EMDF, PT, BMP3M, PHOS3, MG3, CK3 #### [place] [address] [facility] [place] #### VD25H #### [facility] [address] [place] [address] Sodium molar conc 141 mmol/L Normal 135-145 [facility] Comment on above: Performed By: #### H EMDF, PT, BMP3M, PHOS3, MG3, CK3 #### [place] [address] [facility] [place] #### VD25H #### [facility] [address] [place] [address] CR Chest Portableon 07-26-19 19 CR Chest Portable Patient Name: KATHYA HOOPER Diagnostic Radiology Exam Date/Time 07/25/2018 06:39:42 EDT Exam CR Chest Portable Ordering Physician MARIA EUGENIA PEREZ Accession Number [id number] CPT4 Codes 90034 () Reason For Exam ETT placement Report [...] Transcribed Date and Time: 07/25/2018 7:45 Normal [facility] CULTURE URINEon 07-25-2018 CULTURE URINE 1 Organism Klebsiell a pneumoniae >100,000 CFU/ml 1 Organism Antibiotic Result Intrp Amikacin(CHRISTI) <= 2 S Amoxicillin/Clavulani c Acid(CHRISTI) <= 2 S Ampicillin(CHRISTI) R Ampicillin/Sulbactam( CHRISTI) = 8 S Aztreonam(CHRISTI) <= 1 S Cefazolin(CHRISTI) <= 4 S Cefepime(CHRISTI) <= 1 S Ceftriaxone(CHRISTI) <= 1 S Ciprofloxacin(CHRISTI) <= 0.25 S Ertapenem(CHRISTI) <= 0.5 S Gentamicin(CRHISTI) <= 1 S Levofloxacin(CHRISTI) <= 0.12 S Meropenem(CHRISTI) <= 0.25 S Nitrofurantoin(CHRISTI) = 32 S Pip/Tazobactam(CHRISTI) <= 4 S Trimeth/Sulfa(CHRISTI) <= [address] [facility] Comment on above: Order Comment: Speci men Source Comment:Urine, clean catch Performed By: #### H EMDF, PT, BMP3M, PHOS3, MG3, CK3 #### [facility] [address] [place], [place] #### VD25H #### [facility] [address] [place] [address] Glucose,Bedsideon 07-25-2018 Glucose mass conc 140 mg/dL High 70-100 [employer] Comment on above: Result Comment: Test performed by glucose meter. Results may be 10%-15% lower than serum/plasma values. (CLIA ID [id number]) Performed By: #### H EMDF, PT, BMP3M, PHOS3, MG3, CK3 #### [facility] [address] [place], [place] #### VD25H #### [employer] [address] [place] [address] Glucose mass conc 158 mg/dL High 70-100 [employer] Comment on above: Result Comment: Test performed by glucose meter. Results may be 10%-15% lower than serum/plasma values. (CLIA ID [id number]) Performed By: #### H EMDF, PT, BMP3M, PHOS3, MG3, CK3 #### [facility] [address] [place] [id number] #### VD25H #### [employer] [address] [place] [address] Glucose mass conc 172 mg/dL High 70-100 [facility] Comment on above: Result Comment: Test performed by glucose meter. Results may be 10%-15% lower than serum/plasma values. (CLIA ID [id number]) Performed By: #### H EMDF, PT, BMP3M, PHOS3, MG3, CK3 #### [employer] [address] [place], [place] #### VD25H #### [employer] [address] [place] [address] Glucose mass conc 169 mg/dL High 70-100 [facility] Comment on above: Result Comment: Test performed by glucose meter. Results may be 10%-15% lower than serum/plasma values. (CLIA ID [id number]) Performed By: #### H EMDF, PT, BMP3M, PHOS3, MG3, CK3 #### [employer] [address] [place] [address] #### VD25H #### [employer] [address] [place] [address] Glucose mass conc 165 mg/dL High 70-100 [facility] Comment on above: Result Comment: Test performed by glucose meter. Results may be 10%-15% lower than serum/plasma values. (CLIA ID [id number]) Performed By: #### H EMDF, PT, BMP3M, PHOS3, MG3, CK3 #### [facility] [address] [place], [place] #### VD25H #### [employer] [address] [place] [address] Hemogram w/ Autodiffon 07-25 Erythrocyte distribution width Ratio (RBC) 13.6 % Normal 11.5-14.5 [employer] Comment on above: Performed By: #### H EMDF, PT, BMP3M, PHOS3, MG3, CK3 #### [address] [place], [place] #### VD25H #### [facility] [address] [place] [address] Hematocrit Volume Fraction (Bld) 31.3 % Low 40.0-52.0 [facility] Comment on above: Performed By: #### H EMDF, PT, BMP3M, PHOS3, MG3, CK3 #### [address] #### VD25H #### [facility] [address] [place] [address] Hemoglobin mass conc (Bld) 10.6 g/dL Low 13.0-18.0 [facility] Comment on above: Performed By: #### H EMDF, PT, BMP3M, PHOS3, MG3, CK3 #### [address] #### VD25H #### [place] [address] [place] [address] MCH Entitic mass (RBC) 29.4 pg Normal 26.0-34.0 [facility] Comment on above: Performed By: #### H EMDF, PT, BMP3M, PHOS3, MG3, CK3 #### [address] #### VD25H #### [facility] [address] [place] [address] MCHC mass conc (RBC) 33.8 % Normal 32.0-36.0 [facility] Comment on above: Performed By: #### H EMDF, PT, BMP3M, PHOS3, MG3, CK3 #### [address] #### VD25H #### [place] [address] [place] [address] MCV Entitic volume (RBC) 86.9 fL Normal 80.0-98.0 [facility] Comment on above: Performed By: #### H EMDF, PT, BMP3M, PHOS3, MG3, CK3 #### [place] [address] [place], [place] #### VD25H #### [facility] [address] [place] [address] Platelet mean volume Entitic volume (Bld) 8.3 fL Normal 7.4-10.4 [facility] Comment on above: Performed By: #### H EMDF, PT, BMP3M, PHOS3, MG3, CK3 #### [place] [address] [address] [place], [place] #### VD25H #### [facility] [address] [place] [address] Platelets #/vol (Bld) 360 10*3/uL Normal 140-440 [facility] Comment on above: Performed By: #### H EMDF, PT, BMP3M, PHOS3, MG3, CK3 #### [address] #### VD25H #### [facility] [address] [place] [address] RBC #/vol (Bld) 3.61 10*6/uL Low 4.40-5.90 [facility] Comment on above: Performed By: #### H EMDF, PT, BMP3M, PHOS3, MG3, CK3 #### [address] #### VD25H #### [facility] [address] [place] [address] WBC #/vol (Bld) 14.7 10*3/uL High 3.6-10.7 [facility] Comment on above: Performed By: #### H EMDF, PT, BMP3M, PHOS3, MG3, CK3 #### [address] [place], [place] #### VD25H #### [facility] [address] [place] [address] Magnesiumon 07-25-2018 Magnesium mass conc 2.1 mg/dL Normal 1.6-2.3 [facility] Comment on above: Performed By: #### H EMDF, PT, BMP3M, PHOS3, MG3, CK3 #### [address] [place], [place] #### VD25H #### [facility] [address] [place] [address] Manual Diffon 07-25-2018 Abs Baso Cnt 0.1 10*3/uL Normal 0.0-0.2 [facility] Comment on above: Performed By: #### H EMDF, PT, BMP3M, PHOS3, MG3, CK3 #### [address] #### VD25H #### [facility] [address] [place] [address] Abs Neutrophile Cnt 12.9 10*3/uL High 2.2-8.2 [facility] Comment on above: Performed By: #### H EMDF, PT, BMP3M, PHOS3, MG3, CK3 #### [address] #### VD25H #### [facility] [address] [place] [address] Anisocytosis Ql (Bld) Slight Normal [facility] Comment on above: Performed By: #### H EMDF, PT, BMP3M, PHOS3, MG3, CK3 #### [address] #### VD25H #### [facility] [address] [place] [address] Bands 4 % High 0-3 [facility] Comment on above: Performed By: #### H EMDF, PT, BMP3M, PHOS3, MG3, CK3 #### [address] #### VD25H #### [facility] [address] [place] [address] Basophils/100 WBC (Bld) 1 % Normal 0-2 [facility] Comment on above: Performed By: #### H EMDF, PT, BMP3M, PHOS3, MG3, CK3 #### [facility] [address] [place], [place] #### VD25H #### [facility] [address] [place] [address] Eosinophils #/vol (Bld) 0.6 10*3/uL High 0.0-0.5 [facility] Comment on above: Performed By: #### H EMDF, PT, BMP3M, PHOS3, MG3, CK3 #### [place] [address] [place], [place] #### VD25H #### [facility] [address] [place] [address] Eosinophils/100 WBC (Bld) 4 % Normal 1-6 [facility] Comment on above: Performed By: #### H EMDF, PT, BMP3M, PHOS3, MG3, CK3 #### [place] [address] [place], [place] #### VD25H #### [facility] [address] [place] [address] Lymphocytes #/vol (Bld) 0.1 10*3/uL Low 1.1-4.5 [facility] Comment on above: Performed By: #### H EMDF, PT, BMP3M, PHOS3, MG3, CK3 #### [place] [address] [place], [place] #### VD25H #### [facility] [address] [place] [address] Lymphocytes/100 WBC (Bld) 1 % Low 20-40 [facility] Comment on above: Performed By: #### H EMDF, PT, BMP3M, PHOS3, MG3, CK3 #### [place] [address] [place], [place] #### VD25H #### [facility] [address] [place] [address] Macrocytosis Slight Normal [facility] Comment on above: Performed By: #### H EMDF, PT, BMP3M, PHOS3, MG3, CK3 #### [address] [place], [place] #### VD25H #### [facility] [address] [place] [address] Metamyelocytes 2 % Abnormal <1 [facility] Comment on above: Performed By: #### H EMDF, PT, BMP3M, PHOS3, MG3, CK3 #### [place] [address] [place], [place] #### VD25H #### [facility] [address] [place] [address] Microcytosis Slight Normal [facility] Comment on above: Performed By: #### H EMDF, PT, BMP3M, PHOS3, MG3, CK3 #### [address] #### VD25H #### [facility] [address] [place] [address] Monocytes #/vol (Bld) 0.6 10*3/uL Normal 0.2-1.1 [facility] Comment on above: Performed By: #### H EMDF, PT, BMP3M, PHOS3, MG3, CK3 #### [address] #### VD25H #### [facility] [address] [place] [address] Monocytes/100 WBC (Bld) 4 % Normal 2-10 [facility] Comment on above: Performed By: #### H EMDF, PT, BMP3M, PHOS3, MG3, CK3 #### [address] #### VD25H #### [facility] [address] [place] [address] RBC morphology finding Nom (Bld) ABNORMAL Normal [facility] Comment on above: Performed By: #### H EMDF, PT, BMP3M, PHOS3, MG3, CK3 #### [address] #### VD25H #### [facility] [address] [place] [address] Seg Neutrophils 84 % High 40-[address] [facility] Comment on above: Performed By: #### H EMDF, PT, BMP3M, PHOS3, MG3, CK3 #### [facility] [address] [place], [place] #### VD25H #### [facility] [address] [place] [address] Cells counted 100 Normal [facility] Comment on above: Performed By: #### H EMDF, PT, BMP3M, PHOS3, MG3, CK3 #### [address] #### VD25H #### [facility] [address] [place] [address] Phosphoruson 07-25-2018 Phosphate mass conc 2.7 mg/dL Normal 2.5-4.5 [facility] Comment on above: Performed By: #### H EMDF, PT, BMP3M, PHOS3, MG3, CK3 #### [address] #### VD25H #### [facility] [address] [place] [address] Triglycerideon 07-25-2018 Triglyceride mass conc 82 mg/dL Normal <150 [facility] Comment on above: Performed By: #### H EMDF, PT, BMP3M, PHOS3, MG3, CK3 #### [address] #### VD25H #### [facility] [address] [place] [address] Basic Metabolic Panelon 06-30 Calcium mass conc 8.0 mg/dL Low 8.4-10.4 [facility] Comment on above: Performed By: #### H EMDF, PT, BMP3M, PHOS3, MG3, CK3 #### [address] #### VD25H #### [facility] [address] [place] [address] Anion gap molar conc 9 Normal [facility] Comment on above: Performed By: #### H EMDF, PT, BMP3M, PHOS3, MG3, CK3 #### [place] [address] [place], [place] #### VD25H #### [facility] [address] [place] [address] CO2 molar conc 23 mmol/L Normal 22-30 [facility] Comment on above: Performed By: #### H EMDF, PT, BMP3M, PHOS3, MG3, CK3 #### [place] [address] [place], [place] #### VD25H #### [place] [address] [place] [address] Creatinine mass conc 0.71 mg/dL Normal 0.52-1.25 [facility] Comment on above: Performed By: #### H EMDF, PT, BMP3M, PHOS3, MG3, CK3 #### [place] [address] [place], [place] #### VD25H #### [place] [address] [place] [address] GFR/1.73 sq M predicted among blacks MDRD vol rate/area (S/P/Bld) mL/min/{1.73_m2} Normal >60 [facility] Comment on above: Performed By: #### H EMDF, PT, BMP3M, PHOS3, MG3, CK3 #### [place] [address] [place], [place] #### VD25H #### [place] [address] [place] [address] GFR/1.73 sq M predicted among non-blacks MDRD vol rate/area (S/P/Bld) mL/min/{1.73_m2} Normal >60 [facility] Comment on above: Result Comment: Sour ce- MDRD equation with creatinine calibration to IDMS(NKDEP) eGFR not recommended for drug dose adjustment Performed By: #### H EMDF, PT, BMP3M, PHOS3, MG3, CK3 #### [facility] [address] [facility], [place] #### VD25H #### [facility] [address] [place] [address] Glucose mass conc 160 mg/dL High 70-100 [facility] Comment on above: Performed By: #### H EMDF, PT, BMP3M, PHOS3, MG3, CK3 #### [place] [address] [facility], [place] #### VD25H #### [facility] [address] [place] [address] Urea nitrogen mass conc 28 mg/dL High 7-20 [facility] Comment on above: Performed By: #### H EMDF, PT, BMP3M, PHOS3, MG3, CK3 #### [place] [address] [facility], [place] #### VD25H #### [facility] [address] [place] [address] Chloride molar conc 109 mmol/L High 98-107 [facility] Comment on above: Performed By: #### H EMDF, PT, BMP3M, PHOS3, MG3, CK3 #### [place] [address] [facility], [place] #### VD25H #### [facility] [address] [place] [address] Potassium molar conc 3.7 mmol/L Normal 3.5-5.1 [facility] Comment on above: Performed By: #### H EMDF, PT, BMP3M, PHOS3, MG3, CK3 #### [place] [address] [facility], [place] #### VD25H #### [facility] [address] [place] [address] Sodium molar conc 141 mmol/L Normal 135-145 [facility] Comment on above: Performed By: #### H EMDF, PT, BMP3M, PHOS3, MG3, CK3 #### [facility] [address] [place] [address] #### VD25H #### [facility] [address] [place] [address] CR Chest Portableon 07-25-19 19 CR Chest Portable Patient Name: KATHYA HOOPER Diagnostic Radiology Exam Date/Time 07/24/2018 13:12:47 EDT Exam CR Chest Portable Ordering Physician DO WOLFF KATHRYN C Accession Number [id number] CPT4 Codes 21922 () Reason For Exam line placement Report [...] Transcribed Date and Time: 07/24/2018 3:10 Normal [facility] CR Chest Portable Patient Name: KATHYA HOOPER Diagnostic Radiology Exam Date/Time 07/24/2018 07:11:26 EDT Exam CR Chest Portable Ordering Physician MRAIA EUGENIA PEREZ Accession Number [id number] CPT4 Codes 88863 () Reason For Exam ETT placement Report [...] Transcribed Date and Time: 07/24/2018 7:31 Normal [facility] CULT./ST. RESPIRATORYon 06-30 CULT./ST. RESPIRATORY CULT./ST. [...] 1 S Trimeth/Sulfa(CHRISTI) <= [address] [facility] Comment on above: Order Comment: Speci men Source Comment:Endotracheal Performed By: #### H EMDF, PT, BMP3M, PHOS3, MG3, CK3 #### [employer] [address] [place] [address] #### VD25H #### [employer] [address] [place] [address] CULTURE URINEon 07-24-2018 CULTURE URINE 1 Organism [...] <= 4 S Cefepime(CHRISTI) <= 1 S Ceftriaxone(HCRISTI) <= 1 S Ciprofloxacin(CHRISTI) <= 0.25 S Ertapenem(CHRISTI) <= 0.5 S Gentamicin(CHRISTI) <= 1 S Levofloxacin(CHRISTI) <= 0.12 S Meropenem(CHRISTI) <= 0.25 S Nitrofurantoin(CHRISTI) <= 16 S Pip/Tazobactam(CHRISTI) <= 4 S Trimeth/Sulfa(CHRISTI) <= 20 S Normal [facility] Comment on above: Order Comment: Speci men Source Comment:Urine, clean catch Performed By: #### H EMDF, PT, BMP3M, PHOS3, MG3, CK3 #### [address] #### VD25H #### [facility] [address] [place] [address] Creatinine, Ur Randomon 06-30 Creatinine, Ur Random 49.5 mg/dL Normal No Range [facility] Comment on above: Performed By: #### H EMDF, PT, BMP3M, PHOS3, MG3, CK3 #### [address] #### VD25H #### [facility] [address] [place] [address] Glucose,Bedsideon 07-24-2018 Glucose mass conc 124 mg/dL High 70-100 [facility] Comment on above: Result Comment: Test performed by glucose meter. Results may be 10%-15% lower than serum/plasma values. (CLIA ID [id number]) Performed By: #### H EMDF, PT, BMP3M, PHOS3, MG3, CK3 #### [address] #### VD25H #### [facility] [address] [place] [address] Glucose mass conc 152 mg/dL High 70-100 [facility] Comment on above: Result Comment: Test performed by glucose meter. Results may be 10%-15% lower than serum/plasma values. (CLIA ID [id number]) Performed By: #### H EMDF, PT, BMP3M, PHOS3, MG3, CK3 #### [address] #### VD25H #### [facility] [address] [place] [address] Glucose mass conc 149 mg/dL High 70-100 [facility] Comment on above: Result Comment: Test performed by glucose meter. Results may be 10%-15% lower than serum/plasma values. (CLIA ID [id number]) Performed By: #### H EMDF, PT, BMP3M, PHOS3, MG3, CK3 #### [address] #### VD25H #### [facility] [address] [place] [address] Hemogram w/ Autodiffon 07-24 Erythrocyte distribution width Ratio (RBC) 13.7 % Normal 11.5-14.5 [facility] Comment on above: Performed By: #### H EMDF, PT, BMP3M, PHOS3, MG3, CK3 #### [address] #### VD25H #### [facility] [address] [place] [address] Hematocrit Volume Fraction (Bld) 31.4 % Low 40.0-52.0 [facility] Comment on above: Performed By: #### H EMDF, PT, BMP3M, PHOS3, MG3, CK3 #### [address] #### VD25H #### [facility] [address] [place] [address] Hemoglobin mass conc (Bld) 10.7 g/dL Low 13.0-18.0 [facility] Comment on above: Performed By: #### H EMDF, PT, BMP3M, PHOS3, MG3, CK3 #### [address] [place], [place] #### VD25H #### [facility] [address] [place] [address] MCH Entitic mass (RBC) 29.4 pg Normal 26.0-34.0 [facility] Comment on above: Performed By: #### H EMDF, PT, BMP3M, PHOS3, MG3, CK3 #### [place] [address] [place], [place] #### VD25H #### [facility] [address] [place] [address] MCHC mass conc (RBC) 33.9 % Normal 32.0-36.0 [facility] Comment on above: Performed By: #### H EMDF, PT, BMP3M, PHOS3, MG3, CK3 #### [address] #### VD25H #### [facility] [address] [place] [address] MCV Entitic volume (RBC) 86.8 fL Normal 80.0-98.0 [facility] Comment on above: Performed By: #### H EMDF, PT, BMP3M, PHOS3, MG3, CK3 #### [address] #### VD25H #### [facility] [address] [place] [address] Platelet mean volume Entitic volume (Bld) 8.6 fL Normal 7.4-10.4 [facility] Comment on above: Performed By: #### H EMDF, PT, BMP3M, PHOS3, MG3, CK3 #### [address] #### VD25H #### [facility] [address] [place] [address] Platelets #/vol (Bld) 304 10*3/uL Normal 140-440 [facility] Comment on above: Performed By: #### H EMDF, PT, BMP3M, PHOS3, MG3, CK3 #### [address] #### VD25H #### [facility] [address] [place] [address] RBC #/vol (Bld) 3.62 10*6/uL Low 4.40-5.90 [facility] Comment on above: Performed By: #### H EMDF, PT, BMP3M, PHOS3, MG3, CK3 #### [address] #### VD25H #### [place] [address] [place] [address] WBC #/vol (Bld) 14.0 10*3/uL High 3.6-10.7 [facility] Comment on above: Performed By: #### H EMDF, PT, BMP3M, PHOS3, MG3, CK3 #### [address] #### VD25H #### [address] [place] [address] Magnesiumon 07-24-2018 Magnesium mass conc 2.2 mg/dL Normal 1.6-2.3 [facility] Comment on above: Performed By: #### H EMDF, PT, BMP3M, PHOS3, MG3, CK3 #### [address] #### VD25H #### [place] [address] [place] [address] Manual Diffon 07-24-2018 Abs Baso Cnt 0.0 10*3/uL Normal 0.0-0.2 [facility] Comment on above: Performed By: #### H EMDF, PT, BMP3M, PHOS3, MG3, CK3 #### [address] #### VD25H #### [place] [address] [place] [address] Abs Neutrophile Cnt 12.2 10*3/uL High 2.2-8.2 [facility] Comment on above: Performed By: #### H EMDF, PT, BMP3M, PHOS3, MG3, CK3 #### [facility] [address] [place], [place] #### VD25H #### [facility] [address] [place] [address] Eosinophils #/vol (Bld) 0.4 10*3/uL Normal 0.0-0.5 [facility] Comment on above: Performed By: #### H EMDF, PT, BMP3M, PHOS3, MG3, CK3 #### [place] [address] [place] #### VD25H #### [facility] [address] [place] [address] Eosinophils/100 WBC (Bld) 3 % Normal 1-6 [facility] Comment on above: Performed By: #### H EMDF, PT, BMP3M, PHOS3, MG3, CK3 #### [address] #### VD25H #### [facility] [address] [place] [address] Lymphocytes #/vol (Bld) 1.0 10*3/uL Low 1.1-4.5 [facility] Comment on above: Performed By: #### H EMDF, PT, BMP3M, PHOS3, MG3, CK3 #### [facility] [address] [place], [place] #### VD25H #### [facility] [address] [place] [address] Lymphocytes/100 WBC (Bld) 7 % Low 20-40 [facility] Comment on above: Performed By: #### H EMDF, PT, BMP3M, PHOS3, MG3, CK3 #### [facility] [address] [place], [place] #### VD25H #### [facility] [address] [place] [address] Monocytes #/vol (Bld) 0.4 10*3/uL Normal 0.2-1.1 [facility] Comment on above: Performed By: #### H EMDF, PT, BMP3M, PHOS3, MG3, CK3 #### [facility] [address] [place], [place] #### VD25H #### [facility] [address] [place] [address] Monocytes/100 WBC (Bld) 3 % Normal 2-10 [facility] Comment on above: Performed By: #### H EMDF, PT, BMP3M, PHOS3, MG3, CK3 #### [address] #### VD25H #### [facility] [address] [place] [address] RBC morphology finding Nom (Bld) Normal Normal [facility] Comment on above: Performed By: #### H EMDF, PT, BMP3M, PHOS3, MG3, CK3 #### [place] [address] [place], [place] #### VD25H #### [facility] [address] [place] [address] Seg Neutrophils 87 % High 40-[address] [facility] Comment on above: Performed By: #### H EMDF, PT, BMP3M, PHOS3, MG3, CK3 #### [address] #### VD25H #### [facility] [address] [place] [address] Bands 0 % Normal 0-3 [facility] Comment on above: Performed By: #### H EMDF, PT, BMP3M, PHOS3, MG3, CK3 #### [address] #### VD25H #### [facility] [address] [place] [address] Basophils/100 WBC (Bld) 0 % Normal 0-2 [facility] Comment on above: Performed By: #### H EMDF, PT, BMP3M, PHOS3, MG3, CK3 #### [place] [address] [place], [place] #### VD25H #### [facility] [address] [place] [address] Cells counted 100 Normal [facility] Comment on above: Performed By: #### H EMDF, PT, BMP3M, PHOS3, MG3, CK3 #### [place] [address] [place], [place] #### VD25H #### [facility] [address] [place] [address] Phosphoruson 07-24-2018 Phosphate mass conc 2.7 mg/dL Normal 2.5-4.5 [facility] Comment on above: Performed By: #### H EMDF, PT, BMP3M, PHOS3, MG3, CK3 #### [place] [address] [place], [place] #### VD25H #### [facility] [address] [place] [address] Triglycerideon 07-24-2018 Triglyceride mass conc 78 mg/dL Normal <150 [facility] Comment on above: Performed By: #### H EMDF, PT, BMP3M, PHOS3, MG3, CK3 #### [place] [address] [place], [place] #### VD25H #### [facility] [address] [place] [address] Urea Nitrogen,Ur Randomon Urea nitrogen mass conc 1199 mg/dL Normal No Range [facility] Comment on above: Performed By: #### H EMDF, PT, BMP3M, PHOS3, MG3, CK3 #### [place] [place], [place] #### VD25H #### [facility] [address] [place] [address] Add on test from HISon 07-23 Add on test from HIS Accepted Normal [facility] Comment on above: Result Comment: Spec imen available & acceptable for analysis. Performed By: #### H EMDF, PT, BMP3M, PHOS3, MG3, CK3 #### [address] #### VD25H #### [facility] [address] [place] [address] Arterial Blood Gaseson 07-23 CO2 molar conc 23.0 mmol/L Normal 23.0-27.0 [facility] Comment on above: Performed By: #### H EMDF, PT, BMP3M, PHOS3, MG3, CK3 #### [address] #### VD25H #### [address] [place] [address] HCO3 molar conc (Bld) 22.0 mmol/L Normal 21.0-25.0 [facility] Comment on above: Performed By: #### H EMDF, PT, BMP3M, PHOS3, MG3, CK3 #### [address] #### VD25H #### [facility] [address] [place] [address] Hemoglobin mass conc (Bld) 10.9 g/dL Normal ScreenOnly [facility] Comment on above: Performed By: #### H EMDF, PT, BMP3M, PHOS3, MG3, CK3 #### [address] #### VD25H #### [address] [place] [address] Oxygen ppres (Bld) 102.4 mm[Hg] High 80.0-100.0 [facility] Comment on above: Performed By: #### H EMDF, PT, BMP3M, PHOS3, MG3, CK3 #### [address] #### VD25H #### [place] [address] [place] [address] Oxygen saturation in Blood 97.7 % Normal 95.0-100.0 [facility] Comment on above: Performed By: #### H EMDF, PT, BMP3M, PHOS3, MG3, CK3 #### [facility] [address] [place], [place] #### VD25H #### [facility] [address] [place] [address] pCO2 34.4 mm[Hg] Low 35.0-45.0 [facility] Comment on above: Performed By: #### H EMDF, PT, BMP3M, PHOS3, MG3, CK3 #### [address] #### VD25H #### [facility] [address] [place] [address] pH (Bld) 7.423 Normal 7.350-7.450 [facility] Comment on above: Performed By: #### H EMDF, PT, BMP3M, PHOS3, MG3, CK3 #### [address] #### VD25H #### [facility] [address] [place] [address] Std Base Excess -1.9 mmol/L Normal -3.0-3.0 [facility] Comment on above: Performed By: #### H EMDF, PT, BMP3M, PHOS3, MG3, CK3 #### [address] #### VD25H #### [facility] [address] [place] [address] FIO2 .30 Normal [facility] Comment on above: Performed By: #### H EMDF, PT, BMP3M, PHOS3, MG3, CK3 #### [address] #### VD25H #### [facility] [address] [place] [address] Basic Metabolic Panelon 03-2 Anion gap molar conc 12 Normal [facility] Comment on above: Performed By: #### H EMDF, PT, BMP3M, PHOS3, MG3, CK3 #### [place] [address] [facility], [place] #### VD25H #### [facility] [address] [place] [address] Calcium mass conc 7.5 mg/dL Low 8.4-10.4 [facility] Comment on above: Performed By: #### H EMDF, PT, BMP3M, PHOS3, MG3, CK3 #### [place] [address] [facility], [place] #### VD25H #### [facility] [address] [place] [address] CO2 molar conc 23 mmol/L Normal 22-30 [facility] Comment on above: Performed By: #### H EMDF, PT, BMP3M, PHOS3, MG3, CK3 #### [place] [facility], [place] #### VD25H #### [facility] [address] [place] [address] Glucose mass conc 148 mg/dL High 70-100 [facility] Comment on above: Performed By: #### H EMDF, PT, BMP3M, PHOS3, MG3, CK3 #### [address] [address] [place] #### VD25H #### [facility] [address] [place] [address] Urea nitrogen mass conc 82 mg/dL High 7-20 [facility] Comment on above: Performed By: #### H EMDF, PT, BMP3M, PHOS3, MG3, CK3 #### [place] [address] [facility], [place] #### VD25H #### [facility] [address] [place] [address] Creatinine mass conc 3.01 mg/dL High 0.52-1.25 [facility] Comment on above: Performed By: #### H EMDF, PT, BMP3M, PHOS3, MG3, CK3 #### [facility] [address] [place], [place] #### VD25H #### [facility] [address] [place] [address] GFR/1.73 sq M predicted among blacks MDRD vol rate/area (S/P/Bld) 25.8 mL/min/{1.73_m2} Normal >60 [facility] Comment on above: Performed By: #### H EMDF, PT, BMP3M, PHOS3, MG3, CK3 #### [address] #### VD25H #### [facility] [address] [place] [address] GFR/1.73 sq M predicted among non-blacks MDRD vol rate/area (S/P/Bld) 21.3 mL/min/{1.73_m2} Normal >60 [facility] Comment on above: Result Comment: Sour ce- MDRD equation with creatinine calibration to IDMS(NKDEP) eGFR not recommended for drug dose adjustment Performed By: #### H EMDF, PT, BMP3M, PHOS3, MG3, CK3 #### [address] #### VD25H #### [facility] [address] [place] [address] Chloride molar conc 106 mmol/L Normal 98-107 [facility] Comment on above: Performed By: #### H EMDF, PT, BMP3M, PHOS3, MG3, CK3 #### [address] #### VD25H #### [facility] [address] [place] [address] Potassium molar conc 4.2 mmol/L Normal 3.5-5.1 [facility] Comment on above: Performed By: #### H EMDF, PT, BMP3M, PHOS3, MG3, CK3 #### [address] #### VD25H #### [facility] [address] [place] [address] Sodium molar conc 141 mmol/L Normal 135-145 [facility] Comment on above: Performed By: #### H EMDF, PT, BMP3M, PHOS3, MG3, CK3 #### [facility] [address] [place], [place] #### VD25H #### [facility] [address] [place] [address] CR Chest Portableon 07-24-19 19 CR Chest Portable Patient Name: KATHYA HOOPER Diagnostic Radiology Exam Date/Time 07/23/2018 07:06:03 EDT Exam CR Chest Portable Ordering Physician MARIA EUGENIA PEREZ Accession Number [id number] CPT4 Codes 59143 () Reason For Exam ETT placement Report [...] Transcribed Date and Time: 07/23/2018 7:58 Normal [facility] Creatinine, Ur Randomon 06-30 Creatinine, Ur Random 56.8 mg/dL Normal No Range [facility] Comment on above: Performed By: #### H EMDF, PT, BMP3M, PHOS3, MG3, CK3 #### [facility] [address] [place], [place] #### VD25H #### [facility] [address] [place] [address] Glucose,Bedsideon 07-23-2018 Glucose mass conc 116 mg/dL High 70-100 [facility] Comment on above: Result Comment: Test performed by glucose meter. Results may be 10%-15% lower than serum/plasma values. (CLIA ID [id number]) Performed By: #### H EMDF, PT, BMP3M, PHOS3, MG3, CK3 #### [facility] [address] [place] [address] #### VD25H #### [facility] [address] [place] [address] Glucose mass conc 139 mg/dL High 70-100 [facility] Comment on above: Result Comment: Test performed by glucose meter. Results may be 10%-15% lower than serum/plasma values. (CLIA ID [id number]) Performed By: #### H EMDF, PT, BMP3M, PHOS3, MG3, CK3 #### [facility] [address] [place] [address] #### VD25H #### [facility] [address] [place] [address] Glucose mass conc 140 mg/dL High 70-100 [facility] Comment on above: Result Comment: Test performed by glucose meter. Results may be 10%-15% lower than serum/plasma values. (CLIA ID [id number]) Performed By: #### H EMDF, PT, BMP3M, PHOS3, MG3, CK3 #### [facility] [address] [place] [address] #### VD25H #### [facility] [facility] [address] [place] [address] Glucose mass conc 140 mg/dL High 70-100 [facility] Comment on above: Result Comment: Test performed by glucose meter. Results may be 10%-15% lower than serum/plasma values. (CLIA ID [id number]) Performed By: #### H EMDF, PT, BMP3M, PHOS3, MG3, CK3 #### [address] [place], [place] #### VD25H #### [facility] [address] [place] [address] Hemogram w/ Autodiffon 07-23 Abs Baso Cnt 0.0 10*3/uL Normal 0.0-0.2 [facility] Comment on above: Performed By: #### H EMDF, PT, BMP3M, PHOS3, MG3, CK3 #### [address] [place], [place] #### VD25H #### [facility] [address] [place] [address] Abs Neutrophile Cnt 16.2 10*3/uL High 1.8-7.0 [facility] Comment on above: Performed By: #### H EMDF, PT, BMP3M, PHOS3, MG3, CK3 #### [address] [place], [place] #### VD25H #### [facility] [address] [place] [address] Basophils/100 WBC (Bld) 0.3 % Normal 0.0-2.0 [facility] Comment on above: Performed By: #### H EMDF, PT, BMP3M, PHOS3, MG3, CK3 #### [address] #### VD25H #### [facility] [address] [place] [address] Eosinophils #/vol (Bld) 0.2 10*3/uL Normal 0.0-0.5 [facility] Comment on above: Performed By: #### H EMDF, PT, BMP3M, PHOS3, MG3, CK3 #### [address] #### VD25H #### [facility] [address] [place] [address] Eosinophils/100 WBC (Bld) 1.2 % Normal 1.0-6.0 [facility] Comment on above: Performed By: #### H EMDF, PT, BMP3M, PHOS3, MG3, CK3 #### [facility] [address] [place], [place] #### VD25H #### [facility] [address] [place] [address] Erythrocyte distribution width Ratio (RBC) 13.9 % Normal 11.5-14.5 [facility] Comment on above: Performed By: #### H EMDF, PT, BMP3M, PHOS3, MG3, CK3 #### [address] #### VD25H #### [facility] [address] [place] [address] Granulocytes/100 WBC (Bld) 86.8 % High 40.0-80.0 [facility] Comment on above: Performed By: #### H EMDF, PT, BMP3M, PHOS3, MG3, CK3 #### [address] #### VD25H #### [facility] [address] [place] [address] Hematocrit Volume Fraction (Bld) 26.7 % Low 40.0-52.0 [facility] Comment on above: Performed By: #### H EMDF, PT, BMP3M, PHOS3, MG3, CK3 #### [address] [address] [place], [place] #### VD25H #### [facility] [address] [place] [address] Hemoglobin mass conc (Bld) 8.9 g/dL Low 13.0-18.0 [facility] Comment on above: Performed By: #### H EMDF, PT, BMP3M, PHOS3, MG3, CK3 #### [address] #### VD25H #### [facility] [address] [place] [address] Lymphocytes #/vol (Bld) 1.2 10*3/uL Normal 1.0-4.3 [facility] Comment on above: Performed By: #### H EMDF, PT, BMP3M, PHOS3, MG3, CK3 #### [address] #### VD25H #### [facility] [address] [place] [address] Lymphocytes/100 WBC (Bld) 6.6 % Low 20.0-40.0 [facility] Comment on above: Performed By: #### H EMDF, PT, BMP3M, PHOS3, MG3, CK3 #### [address] #### VD25H #### [facility] [address] [place] [address] MCH Entitic mass (RBC) 29.5 pg Normal 26.0-34.0 [facility] Comment on above: Performed By: #### H EMDF, PT, BMP3M, PHOS3, MG3, CK3 #### [address] #### VD25H #### [facility] [address] [place] [address] MCHC mass conc (RBC) 33.5 % Normal 32.0-36.0 [facility] Comment on above: Performed By: #### H EMDF, PT, BMP3M, PHOS3, MG3, CK3 #### [address] #### VD25H #### [facility] [address] [place] [address] MCV Entitic volume (RBC) 87.9 fL Normal 80.0-98.0 [facility] Comment on above: Performed By: #### H EMDF, PT, BMP3M, PHOS3, MG3, CK3 #### [address] #### VD25H #### [facility] [address] [place] [address] Monocytes #/vol (Bld) 1.0 10*3/uL High 0.0-0.8 [facility] Comment on above: Performed By: #### H EMDF, PT, BMP3M, PHOS3, MG3, CK3 #### [address] #### VD25H #### [facility] [address] [place] [address] Monocytes/100 WBC (Bld) 5.1 % Normal 2.0-10.0 [facility] Comment on above: Performed By: #### H EMDF, PT, BMP3M, PHOS3, MG3, CK3 #### [address] #### VD25H #### [facility] [address] [place] [address] Platelet mean volume Entitic volume (Bld) 8.2 fL Normal 7.4-10.4 [facility] Comment on above: Performed By: #### H EMDF, PT, BMP3M, PHOS3, MG3, CK3 #### [address] #### VD25H #### [facility] [address] [place] [address] Platelets #/vol (Bld) 294 10*3/uL Normal 140-440 [facility] Comment on above: Performed By: #### H EMDF, PT, BMP3M, PHOS3, MG3, CK3 #### [address] #### VD25H #### [facility] [address] [place] [address] RBC #/vol (Bld) 3.03 10*6/uL Low 4.40-5.90 [facility] Comment on above: Performed By: #### H EMDF, PT, BMP3M, PHOS3, MG3, CK3 #### [address] #### VD25H #### [facility] [address] [place] [address] WBC #/vol (Bld) 18.7 10*3/uL High 3.6-10.7 [facility] Comment on above: Performed By: #### H EMDF, PT, BMP3M, PHOS3, MG3, CK3 #### [address] [place], [place] #### VD25H #### [facility] [address] [place] [address] LDHon 07-23-2018 LDH 342 U/L High 65-175 [facility] Comment on above: Performed By: #### H EMDF, PT, BMP3M, PHOS3, MG3, CK3 #### [address] #### VD25H #### [facility] [address] [place] [address] Magnesiumon 07-23-2018 Magnesium mass conc 2.5 mg/dL High 1.6-2.3 [facility] Comment on above: Performed By: #### H EMDF, PT, BMP3M, PHOS3, MG3, CK3 #### [address] [place], [place] #### VD25H #### [facility] [address] [place] [address] Phosphoruson 07-23-2018 Phosphate mass conc 4.5 mg/dL Normal 2.5-4.5 [facility] Comment on above: Performed By: #### H EMDF, PT, BMP3M, PHOS3, MG3, CK3 #### [address] #### VD25H #### [facility] [address] [place] [address] Protein, Total Body Fluidon 07-23-2018 Protein,Total-Body Fld 2.7 g/dL Normal No Range [facility] Comment on above: Performed By: #### H EMDF, PT, BMP3M, PHOS3, MG3, CK3 #### [place] [address] [place], [place] #### VD25H #### [facility] [address] [place] [address] Triglycerideon 07-23-2018 Triglyceride mass conc 63 mg/dL Normal <150 [facility] Comment on above: Performed By: #### H EMDF, PT, BMP3M, PHOS3, MG3, CK3 #### [place] [address] [place], [place] #### VD25H #### [facility] [address] [place] [address] Urea Nitrogen,Ur Randomon Urea nitrogen mass conc 677 mg/dL Normal No Range [facility] Comment on above: Performed By: #### H EMDF, PT, BMP3M, PHOS3, MG3, CK3 #### [address] #### VD25H #### [facility] [address] [place] [address] Urinalysis,Macroon 9 Appearance Nom (U) cloudy Normal Clear [facility] Comment on above: Performed By: #### H EMDF, PT, BMP3M, PHOS3, MG3, CK3 #### [address] #### VD25H #### [facility] [address] [place] [address] Bilirubin,Ur Negative Normal Negative [facility] Comment on above: Performed By: #### H EMDF, PT, BMP3M, PHOS3, MG3, CK3 #### [address] [place], [place] #### VD25H #### [facility] [address] [place] [address] Color Nom (U) dk.yel Normal Lt. Yellow [facility] Comment on above: Performed By: #### H EMDF, PT, BMP3M, PHOS3, MG3, CK3 #### [facility] [address] [place], [place] #### VD25H #### [facility] [address] [place] [address] Glucose Ql (U) NORM Normal Negative [facility] Comment on above: Performed By: #### H EMDF, PT, BMP3M, PHOS3, MG3, CK3 #### [facility] [address] [facility], [place] #### VD25H #### [facility] [address] [place] [address] Ketone,Urine Negative Normal Negative [facility] Comment on above: Performed By: #### H EMDF, PT, BMP3M, PHOS3, MG3, CK3 #### [place] [address] [place], [place] #### VD25H #### [facility] [address] [place] [address] Nitrite Ql (U) Negative Normal Negative [facility] Comment on above: Performed By: #### H EMDF, PT, BMP3M, PHOS3, MG3, CK3 #### [place] [address] [place], [place] #### VD25H #### [facility] [address] [place] [address] Occult Blood,Ur 250 {RBC}/uL Normal Negative [facility] Comment on above: Performed By: #### H EMDF, PT, BMP3M, PHOS3, MG3, CK3 #### [place] [address] [place], [place] #### VD25H #### [facility] [address] [place] [address] pH (U) 5.0 Normal 5.0-8.0 [facility] Comment on above: Performed By: #### H EMDF, PT, BMP3M, PHOS3, MG3, CK3 #### [place] [address] [place] #### VD25H #### [facility] [address] [place] [address] Protein mass conc (U) 75 mg/dL Normal Negative [facility] Comment on above: Performed By: #### H EMDF, PT, BMP3M, PHOS3, MG3, CK3 #### [place] [address] [place], [place] #### VD25H #### [place] [address] [place] [address] Specific [place],Urine 1.015 Normal 1.005-1.030 [facility] Comment on above: Performed By: #### H EMDF, PT, BMP3M, PHOS3, MG3, CK3 #### [address] #### VD25H #### [place] [address] [place] [address] Urobilinogen Qn (U) NORM Normal 0-1 [facility] Comment on above: Performed By: #### H EMDF, PT, BMP3M, PHOS3, MG3, CK3 #### [address] #### VD25H #### [address] [place] [address] WBC #/vol (Bld) 2 + Normal Negative [facility] Comment on above: Performed By: #### H EMDF, PT, BMP3M, PHOS3, MG3, CK3 #### [address] [place], [place] #### VD25H #### [place] [address] [place] [address] Urinalysis,Microscopicon Bacteria LM.HPF #/area (Urine sed) Moderate (6-50) Normal Negative [facility] Comment on above: Performed By: #### H EMDF, PT, BMP3M, PHOS3, MG3, CK3 #### [address] #### VD25H #### [address] [place] [address] Epithelial cells LM.HPF #/area (Urine sed) 0 - 2 Normal 3-5 [facility] Comment on above: Performed By: #### H EMDF, PT, BMP3M, PHOS3, MG3, CK3 #### [place] [address] [place] [address] #### VD25H #### [facility] [address] [place] [address] RBC LM.HPF #/area (Urine sed) /[HPF] Normal 0-2 [facility] Comment on above: Performed By: #### H EMDF, PT, BMP3M, PHOS3, MG3, CK3 #### [address] #### VD25H #### [place] [address] [place] [address] Volume,Urine 8-12 ml Normal [facility] Comment on above: Performed By: #### H EMDF, PT, BMP3M, PHOS3, MG3, CK3 #### [address] #### VD25H #### [facility] [address] [place] [address] WBC LM.HPF #/area (Urine sed) 26 - 50 Normal 0-5 [facility] Comment on above: Performed By: #### H EMDF, PT, BMP3M, PHOS3, MG3, CK3 #### [address] [place], [place] #### VD25H #### [place] [address] [place] [address] VL Venous Duplex US Lower Ex t Bilateralon 07-23-2018 VL Venous Duplex US Lower Ext Bilateral Patient Name: KATHYA HOOPER Ultrasound Exam Date/Time 07/23/2018 11:16:11 EDT Exam VL Venous Duplex US Lower Ext Bilateral Ordering Physician ETIENNE MARTÍNEZ JULIE Accession Number [id number] CPT4 Codes 50230 () Reason For Exam edema Report [facility] --- Lower Extremity Venous Duplex Report Patient Name: Kathya Hooper : 1955 Study Date: 07/23/2018 W (63yrs) Age: 63 Account: [id number] Gender: M Loc: T209 BP: Ordering: Yesenia Martínez Technologist: Ordering Physician: Yesenia Martínez Ankle Patch Molder: León Chaidez RVT, [facility] Interpreting Physician: Vamsi York MD --- Location: [facility] --- INDICATIONS: Edema. bilateral [...] performed. The images were obtained using a Yelago E9 vascular ultrasound machine. --- VENOUS FLOW [...] --+ Electronically signed by: Vamsi York MD [id number] Final Dictated: 07/23/2018 3:00 pm Dictating Physician: VAMSI YORK Signed Date and Time: 07/23/2018 3:00 pm Signed by: VAMSI YORK Normal [facility] Vancomycin Troughon 07-24-19 Vancomycin Trough 10.8 ug/mL Low 15.0-20.0 [facility] Comment on above: Result Comment: . Performed By: #### H EMDF, PT, BMP3M, PHOS3, MG3, CK3 #### [facility] [address] [place] [address] #### VD25H #### [facility] [address] [place] [address] Basic Metabolic Panelon 06-30 Calcium mass conc 7.9 mg/dL Low 8.4-10.4 [facility] Comment on above: Performed By: #### H EMDF, PT, BMP3M, PHOS3, MG3, CK3 #### [facility] [address] [facility], [place] #### VD25H #### [facility] [address] [place] [address] Anion gap molar conc 11 Normal [facility] Comment on above: Performed By: #### H EMDF, PT, BMP3M, PHOS3, MG3, CK3 #### [place] [address] [facility], [place] #### VD25H #### [facility] [address] [place] [address] CO2 molar conc 28 mmol/L Normal 22-30 [facility] Comment on above: Performed By: #### H EMDF, PT, BMP3M, PHOS3, MG3, CK3 #### [place] [address] [facility], [place] #### VD25H #### [facility] [address] [place] [address] Glucose mass conc 134 mg/dL High 70-100 [facility] Comment on above: Performed By: #### H EMDF, PT, BMP3M, PHOS3, MG3, CK3 #### [place] [address] [facility], [place] #### VD25H #### [facility] [address] [place] [address] Urea nitrogen mass conc 51 mg/dL High 7-20 [facility] Comment on above: Performed By: #### H EMDF, PT, BMP3M, PHOS3, MG3, CK3 #### [place] [address] [facility], [place] #### VD25H #### [facility] [address] [place] [address] Creatinine mass conc 1.57 mg/dL High 0.52-1.25 [facility] Comment on above: Performed By: #### H EMDF, PT, BMP3M, PHOS3, MG3, CK3 #### [place] [address] [place], [place] #### VD25H #### [facility] [address] [place] [address] GFR/1.73 sq M predicted among blacks MDRD vol rate/area (S/P/Bld) 54.6 mL/min/{1.73_m2} Normal >60 [facility] Comment on above: Performed By: #### H EMDF, PT, BMP3M, PHOS3, MG3, CK3 #### [facility] [facility] [address] [place], [place] #### VD25H #### [place] [address] [place] [address] GFR/1.73 sq M predicted among non-blacks MDRD vol rate/area (S/P/Bld) 45.1 mL/min/{1.73_m2} Normal >60 [facility] Comment on above: Result Comment: Sour ce- MDRD equation with creatinine calibration to IDMS(NKDEP) eGFR not recommended for drug dose adjustment Performed By: #### H EMDF, PT, BMP3M, PHOS3, MG3, CK3 #### [place] [address] [place], [place] #### VD25H #### [place] [address] [place] [address] Chloride molar conc 107 mmol/L Normal 98-107 [facility] Comment on above: Performed By: #### H EMDF, PT, BMP3M, PHOS3, MG3, CK3 #### [place] [address] [place], [place] #### VD25H #### [facility] [address] [place] [address] Potassium molar conc 3.8 mmol/L Normal 3.5-5.1 [facility] Comment on above: Performed By: #### H EMDF, PT, BMP3M, PHOS3, MG3, CK3 #### [address] [place], [place] #### VD25H #### [facility] [address] [place] [address] Sodium molar conc 146 mmol/L High 135-145 [facility] Comment on above: Performed By: #### H EMDF, PT, BMP3M, PHOS3, MG3, CK3 #### [facility] [address] [facility] [address] [place] [address] #### VD25H #### [facility] [address] [place] [address] CR Abdomen APon 07-22-2018 CR Abdomen AP Patient Name: KATHYA HOOPER Diagnostic Radiology Exam Date/Time 07/22/2018 08:02:02 EDT Exam CR Abdomen AP Ordering Physician MARIA EUGENIA PEREZ Accession Number [id number] CPT4 Codes 28160 () Reason For Exam ileus Report Supine [...] Transcribed Date and Time: 07/22/2018 9:28 Normal [facility] CR Chest Portableon 07-23-19 19 CR Chest Portable Patient Name: KATHYA HOOPER Diagnostic Radiology Exam Date/Time 07/22/2018 16:32:15 EDT Exam CR Chest Portable Ordering Physician MD NATE, [facility] Accession Number [id number] CPT4 Codes 64704 () Reason For Exam Thoracentesis Report Clinical [...] Transcribed Date and Time: 07/22/2018 6:46 Normal [facility] CR Chest Portable Patient Name: KATHYA HOOPER Diagnostic Radiology Exam Date/Time 07/22/2018 06:49:22 EDT Exam CR Chest Portable Ordering Physician MARIA EUGENIA PEREZ Accession Number [id number] CPT4 Codes 06254 () Reason For Exam ETT placement Report [...] Transcribed Date and Time: 07/22/2018 9:31 Normal [facility] CULTURE AND STAIN - FLUIDon 07-22-2018 CULTURE AND STAIN - FLUID CULTURE & STAIN - FLUID --> Status: F No growth at 5 days. STAIN GRAM --> Status: F Moderate polymorphonuclear cells/lpf. Moderate mononuclear cells/lpf No organisms seen. Cytocentrifugation performed. Moderate mononuclear cells/lpf No organisms seen. Cytocentrifugation performed. Normal [facility] Comment on above: Order Comment: Speci men Source Comment:Body Fluid Performed By: #### H EMDF, PT, BMP3M, PHOS3, MG3, CK3 #### [place] [address] [place], [place] #### VD25H #### [facility] [address] [place] [address] Cell Count,Body Fluidon 06-30 Nucleated Cells 259 {cells}/uL Normal [facility] Comment on above: Performed By: #### H EMDF, PT, BMP3M, PHOS3, MG3, CK3 #### [place] [address] [place], [place] #### VD25H #### [facility] [address] [place] [address] RBC Count Body Fld 123 {RBC}/uL Normal [facility] Comment on above: Performed By: #### H EMDF, PT, BMP3M, PHOS3, MG3, CK3 #### [place] [address] [place], [place] #### VD25H #### [facility] [address] [place] [address] Fluid Type thoracentesis Normal [facility] Comment on above: Performed By: #### H EMDF, PT, BMP3M, PHOS3, MG3, CK3 #### [place] [address] [place], [place] #### VD25H #### [facility] [address] [place] [address] Glucose, Body Fluidon 2018 Fluid Type Thoracentesis Normal [facility] Comment on above: Performed By: #### H EMDF, PT, BMP3M, PHOS3, MG3, CK3 #### [facility] [address] [place], [place] #### VD25H #### [facility] [address] [place] [address] Glucose, Body Fluid 136 mg/dL Normal No Range [facility] Comment on above: Performed By: #### H EMDF, PT, BMP3M, PHOS3, MG3, CK3 #### [place] [address] [place], [place] #### VD25H #### [facility] [address] [place] [address] Glucose,Bedsideon 07-22-2018 Glucose mass conc 142 mg/dL High 70-100 [facility] Comment on above: Result Comment: Test performed by glucose meter. Results may be 10%-15% lower than serum/plasma values. (CLIA ID [id number]) Performed By: #### H EMDF, PT, BMP3M, PHOS3, MG3, CK3 #### [address] #### VD25H #### [facility] [address] [place] [address] Glucose mass conc 127 mg/dL High 70-100 [facility] Comment on above: Result Comment: Test performed by glucose meter. Results may be 10%-15% lower than serum/plasma values. (CLIA ID [id number]) Performed By: #### H EMDF, PT, BMP3M, PHOS3, MG3, CK3 #### [facility] [address] [place], [place] #### VD25H #### [facility] [address] [place] [address] Glucose mass conc 139 mg/dL High 70-100 [facility] Comment on above: Result Comment: Test performed by glucose meter. Results may be 10%-15% lower than serum/plasma values. (CLIA ID [id number]) Performed By: #### H EMDF, PT, BMP3M, PHOS3, MG3, CK3 #### [facility] [address] [place], [place] #### VD25H #### [facility] [address] [place] [address] Glucose mass conc 124 mg/dL High 70-100 [facility] Comment on above: Result Comment: Test performed by glucose meter. Results may be 10%-15% lower than serum/plasma values. (CLIA ID [id number]) Performed By: #### H EMDF, PT, BMP3M, PHOS3, MG3, CK3 #### [facility] [address] [place] [address] #### VD25H #### [facility] [address] [place] [address] Glucose mass conc 128 mg/dL High 70-100 [facility] Comment on above: Result Comment: Test performed by glucose meter. Results may be 10%-15% lower than serum/plasma values. (CLIA ID [id number]) Performed By: #### H EMDF, PT, BMP3M, PHOS3, MG3, CK3 #### [facility] [address] [place] [address] #### VD25H #### [facility] [address] [place] [address] Glucose mass conc 113 mg/dL High 70-100 [facility] Comment on above: Result Comment: Test performed by glucose meter. Results may be 10%-15% lower than serum/plasma values. (CLIA ID [id number]) Performed By: #### H EMDF, PT, BMP3M, PHOS3, MG3, CK3 #### [employer] [address] [place] [address] #### VD25H #### [employer] [address] [place] [address] Hemogram w/ Autodiffon 07-22 Abs Baso Cnt 0.1 10*3/uL Normal 0.0-0.2 [facility] Comment on above: Performed By: #### H EMDF, PT, BMP3M, PHOS3, MG3, CK3 #### [address] #### VD25H #### [facility] [address] [place] [address] Abs Neutrophile Cnt 15.2 10*3/uL High 1.8-7.0 [facility] Comment on above: Performed By: #### H EMDF, PT, BMP3M, PHOS3, MG3, CK3 #### [address] #### VD25H #### [facility] [address] [place] [address] Basophils/100 WBC (Bld) 0.6 % Normal 0.0-2.0 [facility] Comment on above: Performed By: #### H EMDF, PT, BMP3M, PHOS3, MG3, CK3 #### [address] #### VD25H #### [facility] [address] [place] [address] Eosinophils #/vol (Bld) 0.2 10*3/uL Normal 0.0-0.5 [facility] Comment on above: Performed By: #### H EMDF, PT, BMP3M, PHOS3, MG3, CK3 #### [address] #### VD25H #### [facility] [address] [place] [address] Eosinophils/100 WBC (Bld) 0.9 % Low 1.0-6.0 [facility] Comment on above: Performed By: #### H EMDF, PT, BMP3M, PHOS3, MG3, CK3 #### [address] #### VD25H #### [facility] [address] [place] [address] Erythrocyte distribution width Ratio (RBC) 13.9 % Normal 11.5-14.5 [facility] Comment on above: Performed By: #### H EMDF, PT, BMP3M, PHOS3, MG3, CK3 #### [place] [address] [place], [place] #### VD25H #### [facility] [address] [place] [address] Granulocytes/100 WBC (Bld) 88.8 % High 40.0-80.0 [facility] Comment on above: Performed By: #### H EMDF, PT, BMP3M, PHOS3, MG3, CK3 #### [address] #### VD25H #### [facility] [address] [place] [address] Hematocrit Volume Fraction (Bld) 31.6 % Low 40.0-52.0 [facility] Comment on above: Performed By: #### H EMDF, PT, BMP3M, PHOS3, MG3, CK3 #### [address] [place], [place] #### VD25H #### [facility] [address] [place] [address] Hemoglobin mass conc (Bld) 10.9 g/dL Low 13.0-18.0 [facility] Comment on above: Performed By: #### H EMDF, PT, BMP3M, PHOS3, MG3, CK3 #### [address] #### VD25H #### [facility] [address] [place] [address] Lymphocytes #/vol (Bld) 1.1 10*3/uL Normal 1.0-4.3 [facility] Comment on above: Performed By: #### H EMDF, PT, BMP3M, PHOS3, MG3, CK3 #### [place] [address] [place] [address] #### VD25H #### [facility] [address] [place] [address] Lymphocytes/100 WBC (Bld) 6.2 % Low 20.0-40.0 [facility] Comment on above: Performed By: #### H EMDF, PT, BMP3M, PHOS3, MG3, CK3 #### [place] [address] [place], [place] #### VD25H #### [facility] [address] [place] [address] MCH Entitic mass (RBC) 31.1 pg Normal 26.0-34.0 [facility] Comment on above: Performed By: #### H EMDF, PT, BMP3M, PHOS3, MG3, CK3 #### [address] #### VD25H #### [facility] [address] [place] [address] MCHC mass conc (RBC) 34.6 % Normal 32.0-36.0 [facility] Comment on above: Performed By: #### H EMDF, PT, BMP3M, PHOS3, MG3, CK3 #### [address] #### VD25H #### [facility] [address] [place] [address] MCV Entitic volume (RBC) 89.9 fL Normal 80.0-98.0 [facility] Comment on above: Performed By: #### H EMDF, PT, BMP3M, PHOS3, MG3, CK3 #### [address] #### VD25H #### [facility] [address] [place] [address] Monocytes #/vol (Bld) 0.6 10*3/uL Normal 0.0-0.8 [facility] Comment on above: Performed By: #### H EMDF, PT, BMP3M, PHOS3, MG3, CK3 #### [address] [place], [place] #### VD25H #### [facility] [address] [place] [address] Monocytes/100 WBC (Bld) 3.5 % Normal 2.0-10.0 [facility] Comment on above: Performed By: #### H EMDF, PT, BMP3M, PHOS3, MG3, CK3 #### [address] [place], [place] #### VD25H #### [facility] [address] [place] [address] Platelet mean volume Entitic volume (Bld) 7.9 fL Normal 7.4-10.4 [facility] Comment on above: Performed By: #### H EMDF, PT, BMP3M, PHOS3, MG3, CK3 #### [address] #### VD25H #### [facility] [address] [place] [address] Platelets #/vol (Bld) 299 10*3/uL Normal 140-440 [facility] Comment on above: Performed By: #### H EMDF, PT, BMP3M, PHOS3, MG3, CK3 #### [address] #### VD25H #### [facility] [address] [place] [address] RBC #/vol (Bld) 3.52 10*6/uL Low 4.40-5.90 [facility] Comment on above: Performed By: #### H EMDF, PT, BMP3M, PHOS3, MG3, CK3 #### [address] #### VD25H #### [facility] [address] [place] [address] WBC #/vol (Bld) 17.1 10*3/uL High 3.6-10.7 [facility] Comment on above: Performed By: #### H EMDF, PT, BMP3M, PHOS3, MG3, CK3 #### [facility] [address] [place] [address] #### VD25H #### [facility] [address] [place] [address] LDH, Body Fluidon 07-22-2018 LDH, Body Fluid 232 U/L Normal No Range [facility] Comment on above: Performed By: #### H EMDF, PT, BMP3M, PHOS3, MG3, CK3 #### [facility] [address] [place] [address] #### VD25H #### [facility] [address] [place] [address] Magnesiumon 07-22-2018 Magnesium mass conc 2.6 mg/dL High 1.6-2.3 [facility] Comment on above: Performed By: #### H EMDF, PT, BMP3M, PHOS3, MG3, CK3 #### [facility] [address] [place] [address] #### VD25H #### [facility] [address] [place] [address] Medical Cytologyon 9 Medical Cytology [id number] DEPARTMENT OF PATHOLOGY AND [facility]ATORY MEDICINE [address] [place] [address] FINAL MEDICAL CYTOLOGY REPORT NAME: SANDIE KATHYA W : 1955 63 Y M BILLING NO.: [id number] LOCATION: 1T2I T2 INPAT T209 PROCEDURE 07/22/2018 [...] characteristics determined by the clinical laboratories of [facility]. They have not been cleared by [...] reviewed at [facility] [address] [place] [address]. DEPARTMENT OF PATHOLOGY AND LABORATORY MEDICINE [place], [place] [address] Normal [facility] Phosphoruson 07-22-2018 Phosphate mass conc 4.6 mg/dL High 2.5-4.5 [facility] Comment on above: Performed By: #### H EMDF, PT, BMP3M, PHOS3, MG3, CK3 #### [facility] [address] [place], [place] #### VD25H #### [facility] [address] [place] [address] Procalcitoninon 07-22-2018 Protein mass conc 0.27 ng/mL Abnormal <0.10 [facility] Comment on above: Result Comment: (Cor rect ref.range is <0.09 ng/mL) Test performed: [facility] [place], [place]. Performed By: #### H EMDF, PT, BMP3M, PHOS3, MG3, CK3 #### [address] #### VD25H #### [facility] [address] [place] [address] Interpretation See Below Normal [facility] Comment on above: Result Comment: PCT <0.50 = Low risk of severe sepsis and/or septic shock. PCT >2.00 = High risk of severe sepsis and/or septic shock. Performed By: #### H EMDF, PT, BMP3M, PHOS3, MG3, CK3 #### [address] #### VD25H #### [facility] [address] [place] [address] STAIN ACID-FASTon 07-22-2018 STAIN ACID-FAST STAIN ACID-FAST --> Status: F No acid-fast bacilli seen in smear. - Method: AFB by Kinyoun Stain - Method: AFB by Kinyoun Stain Normal [facility] Comment on above: Performed By: #### H EMDF, PT, BMP3M, PHOS3, MG3, CK3 #### [address] #### VD25H #### [facility] [address] [place] [address] Triglycerideon 07-22-2018 Triglyceride mass conc 96 mg/dL Normal <150 [facility] Comment on above: Performed By: #### H EMDF, PT, BMP3M, PHOS3, MG3, CK3 #### [address] #### VD25H #### [facility] [address] [place] [address] US Thora-Aspir Pleura w/ Evelin geon 07-22-2018 US Thora-Aspir Pleura w/ Image Patient Name: KATHYA HOOPER Ultrasound Exam Date/Time 07/22/2018 14:23:28 EDT Exam US Thora-Aspir Pleura w/ Image Ordering Physician MARIA EUGENIA PEREZ Accession Number [id number] CPT4 Codes 73661 () Reason For Exam L thoracentesis Report Reasons for examination: Left pleural effusion. Respiratory insufficiency. Ultrasound was performed of the left hemithorax, localizing the pleural fluid. After obtaining informed consent, sterile preparation, draping, and local anesthetic administration, thoracentesis was performed under direct ultrasonographic guidance with a 5 [place] Yueh needle/catheter. A total of 300 mL [...] Transcribed Date and Time: 07/22/2018 2:55 Normal [facility] pH,Misc Body Fluidon 019 pH,Misc 7.996 Normal None Available [facility] Comment on above: Performed By: #### H EMDF, PT, BMP3M, PHOS3, MG3, CK3 #### [facility] [address] [place] [address] #### VD25H #### [facility] [address] [place] [address] Arterial Blood Gaseson 07-21 CO2 molar conc 29.8 mmol/L High 23.0-27.0 [facility] Comment on above: Performed By: #### T SGL #### [place] [address] [place] [address] HCO3 molar conc (Bld) 28.7 mmol/L High 21.0-25.0 [facility] Comment on above: Performed By: #### T SGL #### [place] [address] [place] [address] Hemoglobin mass conc (Bld) 11.7 g/dL Normal ScreenOnly [facility] Comment on above: Performed By: #### T SGL #### [place] [address] [place] [address] Oxygen ppres (Bld) 144.9 mm[Hg] High 80.0-100.0 [facility] Comment on above: Performed By: #### T SGL #### [place] [address] [place] [address] Oxygen saturation in Blood 98.4 % Normal 95.0-100.0 [facility] Comment on above: Performed By: #### T SGL #### [place] [address] [place] [address] pCO2 36.8 mm[Hg] Normal 35.0-45.0 [facility] Comment on above: Performed By: #### T SGL #### [place] [address] [place] [address] pH (Bld) 7.510 High 7.350-7.450 [facility] Comment on above: Performed By: #### T SGL #### [place] [address] [place] [address] Std Base Excess 5.5 mmol/L High -3.0-3.0 [facility] Comment on above: Performed By: #### T SGL #### [place] [address] [place] [address] FIO2 .50 Normal [facility] Comment on above: Performed By: #### T SGL #### [place] [address] [place] [address] CR Abdomen APon 07-21-2018 CR Abdomen AP Patient Name: KATHYA HOOPER Diagnostic Radiology Exam Date/Time 07/21/2018 06:41:07 EDT Exam CR Abdomen AP Ordering Physician Moses PERRY JOYA Accession Number [id number] CPT4 Codes 55740 () Reason For Exam ileus Report Reason [...] B Transcribed Date and Time: 07/21/2018 7:23 [facility] CR Chest Portableon 07-22-19 19 CR Chest Portable Patient Name: KATHYA HOOPER Diagnostic Radiology Exam Date/Time 07/21/2018 06:40:50 EDT Exam CR Chest Portable Ordering Physician MARIA EUGENIA PEREZ Accession Number [id number] CPT4 Codes 01203 () Reason For Exam ETT placement Report [...] Transcribed Date and Time: 07/21/2018 5:38 Normal [facility] CR Chest Portable Patient Name: KATYHA HOOPER Diagnostic Radiology Exam Date/Time 07/21/2018 01:11:50 EDT Exam CR Chest Portable Ordering Physician MD GRIFFIN NICHOLAS Accession Number [id number] CPT4 Codes 79598 () Reason For Exam s/p bronch Report [...] Transcribed Date and Time: 07/21/2018 1:26 Normal [facility] Comp Metabolic Panelon 07-21 Calcium mass conc 7.9 mg/dL Low 8.4-10.4 [facility] Comment on above: Performed By: #### T SGL #### [facility] [address] [place] [address] ALP enzyme act/vol 85 U/L Normal 38-126 [facility] Comment on above: Performed By: #### T SGL #### [facility] [address] [place] [address] ALT enzyme act/vol 105 U/L High 13-69 [facility] Comment on above: Performed By: #### T SGL #### [facility] [address] [place] [address] Anion gap molar conc 8 Normal [facility] Comment on above: Performed By: #### T SGL #### [facility] [address] [place] [address] AST enzyme act/vol 78 U/L High 15-46 [facility] Comment on above: Performed By: #### T SGL #### [facility] [address] [place] [address] Bilirubin mass conc 1.1 mg/dL Normal 0.2-1.3 [facility] Comment on above: Performed By: #### T SGL #### [place] [address] [place] [address] CO2 molar conc 33 mmol/L High 22-30 [facility] Comment on above: Performed By: #### T SGL #### [place] [address] [place] [address] Creatinine mass conc 0.90 mg/dL Normal 0.52-1.25 [facility] Comment on above: Performed By: #### T SGL #### [facility] [address] [place] [address] GFR/1.73 sq M predicted among blacks MDRD vol rate/area (S/P/Bld) mL/min/{1.73_m2} Normal >60 [facility] Comment on above: Performed By: #### T SGL #### [facility] [address] [place] [address] GFR/1.73 sq M predicted among non-blacks MDRD vol rate/area (S/P/Bld) mL/min/{1.73_m2} Normal >60 [facility] Comment on above: Result Comment: Sour ce- MDRD equation with creatinine calibration to IDMS(NKDEP) eGFR not recommended for drug dose adjustment Performed By: #### T SGL #### [facility] [address] [place] [address] Glucose mass conc 113 mg/dL High 70-100 [facility] Comment on above: Performed By: #### T SGL #### [facility] [address] [place] [address] Protein mass conc 5.6 g/dL Low 6.3-8.2 [facility] Comment on above: Performed By: #### T SGL #### [facility] [address] [place] [address] Urea nitrogen mass conc 28 mg/dL High 7-20 [facility] Comment on above: Performed By: #### T SGL #### [facility] [address] [place] [address] Chloride molar conc 104 mmol/L Normal 98-107 [facility] Comment on above: Performed By: #### T SGL #### [facility] [address] [place] [address] Potassium molar conc 3.6 mmol/L Normal 3.5-5.1 [facility] Comment on above: Performed By: #### T SGL #### [facility] [address] [place] [address] Sodium molar conc 145 mmol/L Normal 135-145 [facility] Comment on above: Performed By: #### T SGL #### [facility] [address] [place] [address] Albumin mass conc 2.8 g/dL Low 3.5-5.0 [facility] Comment on above: Performed By: #### T SGL #### [facility] [address] [place] [address] Glucose,Bedsideon 07-21-2018 Glucose mass conc 124 mg/dL High 70-100 [facility] Comment on above: Result Comment: Test performed by glucose meter. Results may be 10%-15% lower than serum/plasma values. (CLIA ID [id number]) Performed By: #### H EMDF, PT, BMP3M, PHOS3, MG3, CK3 #### [facility] [address] [place] [address] #### VD25H #### [facility] [address] [place] [address] Glucose mass conc 151 mg/dL High 70-100 [facility] Comment on above: Result Comment: Test performed by glucose meter. Results may be 10%-15% lower than serum/plasma values. (CLIA ID [id number]) Performed By: #### H EMDF, PT, BMP3M, PHOS3, MG3, CK3 #### [facility] [address] [place] [id number] #### VD25H #### [facility] [address] [place] [address] Glucose mass conc 127 mg/dL High 70-100 [facility] Comment on above: Result Comment: Test performed by glucose meter. Results may be 10%-15% lower than serum/plasma values. (CLIA ID [id number]) Performed By: #### T SGL #### [address] [address] Glucose mass conc 113 mg/dL High 70-100 [facility] Comment on above: Result Comment: Test performed by glucose meter. Results may be 10%-15% lower than serum/plasma values. (CLIA ID [id number]) Performed By: #### A DDON #### [address] [place], [place] Hemogram w/ Autodiffon 07-21 Abs Baso Cnt 0.1 10*3/uL Normal 0.0-0.2 [facility] Comment on above: Performed By: #### T SGL #### [address] [place] [address] Abs Neutrophile Cnt 11.0 10*3/uL High 1.8-7.0 [facility] Comment on above: Performed By: #### T SGL #### [address] [place] [address] Basophils/100 WBC (Bld) 0.5 % Normal 0.0-2.0 [facility] Comment on above: Performed By: #### T SGL #### [address] [place] [address] Eosinophils #/vol (Bld) 0.3 10*3/uL Normal 0.0-0.5 [facility] Comment on above: Performed By: #### T SGL #### [address] [place] [address] Eosinophils/100 WBC (Bld) 1.9 % Normal 1.0-6.0 [facility] Comment on above: Performed By: #### T SGL #### [address] [place] [address] Erythrocyte distribution width Ratio (RBC) 13.7 % Normal 11.5-14.5 [facility] Comment on above: Performed By: #### T SGL #### [address] [place] [address] Granulocytes/100 WBC (Bld) 81.0 % High 40.0-80.0 [facility] Comment on above: Performed By: #### T SGL #### [address] [place] [address] Hematocrit Volume Fraction (Bld) 32.1 % Low 40.0-52.0 [facility] Comment on above: Performed By: #### T SGL #### [address] [address] Hemoglobin mass conc (Bld) 10.7 g/dL Low 13.0-18.0 [facility] Comment on above: Performed By: #### T SGL #### [address] [place] [address] Lymphocytes #/vol (Bld) 1.3 10*3/uL Normal 1.0-4.3 [facility] Comment on above: Performed By: #### T SGL #### [address] [place] [address] Lymphocytes/100 WBC (Bld) 9.8 % Low 20.0-40.0 [facility] Comment on above: Performed By: #### T SGL #### [address] [place] [address] MCH Entitic mass (RBC) 29.0 pg Normal 26.0-34.0 [facility] Comment on above: Performed By: #### T SGL #### [address] [place] [address] MCHC mass conc (RBC) 33.4 % Normal 32.0-36.0 [facility] Comment on above: Performed By: #### T SGL #### [address] [place] [address] MCV Entitic volume (RBC) 86.9 fL Normal 80.0-98.0 [facility] Comment on above: Performed By: #### T SGL #### [address] [place] [address] Monocytes #/vol (Bld) 0.9 10*3/uL High 0.0-0.8 [facility] Comment on above: Performed By: #### T SGL #### [address] [place] [address] Monocytes/100 WBC (Bld) 6.8 % Normal 2.0-10.0 [facility] Comment on above: Performed By: #### T SGL #### [address] [place] [address] Platelet mean volume Entitic volume (Bld) 7.4 fL Normal 7.4-10.4 [facility] Comment on above: Performed By: #### T SGL #### [address] [place] [address] Platelets #/vol (Bld) 367 10*3/uL Normal 140-440 [facility] Comment on above: Performed By: #### T SGL #### [address] [place] [address] RBC #/vol (Bld) 3.69 10*6/uL Low 4.40-5.90 [facility] Comment on above: Performed By: #### T SGL #### [address] [place] [address] WBC #/vol (Bld) 13.6 10*3/uL High 3.6-10.7 [facility] Comment on above: Performed By: #### T SGL #### [address] [place] [address] Magnesiumon 07-21-2018 Magnesium mass conc 2.6 mg/dL High 1.6-2.3 [facility] Comment on above: Performed By: #### T SGL #### [facility] [address] [place] [address] Phosphoruson 07-21-2018 Phosphate mass conc 4.2 mg/dL Normal 2.5-4.5 [facility] Comment on above: Performed By: #### T SGL #### [facility] [address] [place] [address] Triglycerideon 07-21-2018 Triglyceride mass conc 105 mg/dL Normal <150 [facility] Comment on above: Performed By: #### T SGL #### [address] [place] [address] Add on test from HISon 07-20 Add on test from HIS Accepted Normal [facility] Comment on above: Result Comment: Spec imen available & acceptable for analysis. Performed By: #### A DDON #### [address] [place] [address] Basic Metabolic Panelon 06-30 Calcium mass conc 7.7 mg/dL Low 8.4-10.4 [facility] Comment on above: Performed By: #### A DDON #### [address] [place], [place] Glucose mass conc 96 mg/dL Normal 70-100 [facility] Comment on above: Performed By: #### A DDON #### [address] [place] [address] Urea nitrogen mass conc 22 mg/dL High 7-20 [facility] Comment on above: Performed By: #### A DDON #### [address] [place] [address] Anion gap molar conc 10 Normal [facility] Comment on above: Performed By: #### A DDON #### [address] [place], [place] CO2 molar conc 29 mmol/L Normal 22-30 [facility] Comment on above: Performed By: #### A DDON #### [address] [place] [address] Creatinine mass conc 0.87 mg/dL Normal 0.52-1.25 [facility] Comment on above: Performed By: #### A DDON #### [address] [place] [address] GFR/1.73 sq M predicted among blacks MDRD vol rate/area (S/P/Bld) mL/min/{1.73_m2} Normal >60 [facility] Comment on above: Performed By: #### A DDON #### [address] [place] [address] GFR/1.73 sq M predicted among non-blacks MDRD vol rate/area (S/P/Bld) mL/min/{1.73_m2} Normal >60 [facility] Comment on above: Result Comment: Sour ce- MDRD equation with creatinine calibration to IDMS(NKDEP) eGFR not recommended for drug dose adjustment Performed By: #### A DDON #### [address] [place] [address] Potassium molar conc 3.6 mmol/L Normal 3.5-5.1 [facility] Comment on above: Performed By: #### A DDON #### [address] [place] [address] Chloride molar conc 105 mmol/L Normal 98-107 [facility] Comment on above: Performed By: #### A DDON #### [address] [place] [address] Sodium molar conc 144 mmol/L Normal 135-145 [facility] Comment on above: Performed By: #### A DDON #### [address] [address] CR Abdomen APon 07-20-2018 CR Abdomen AP Patient Name: KATHYA HOOPER Diagnostic Radiology Exam Date/Time 07/20/2018 08:39:45 EDT Exam CR Abdomen AP Ordering Physician OJYA ROJAS Accession Number [id number] CPT4 Codes 23608 () Reason For Exam ileus Report Clinical [...] Transcribed Date and Time: 07/20/2018 9:29 Normal [facility] CR Chest Portableon 07-21-19 19 CR Chest Portable Patient Name: KATHYA HOOPER Diagnostic Radiology Exam Date/Time 07/20/2018 08:39:26 EDT Exam CR Chest Portable Ordering Physician MARIA EUGENIA PEREZ Accession Number [id number] CPT4 Codes 18351 () Reason For Exam ETT placement Report [...] Transcribed Date and Time: 07/20/2018 9:28 Normal [facility] CT Abdomen/Pelvis w/ Contras ton 07-20-2018 CT Abdomen/Pelvis w/ Contrast Patient Name: KATHYA HOOPER CT Exam Date/Time 07/20/2018 11:30:[address] Abdomen/Pelvis w/ IV Contrast (IV Onl Ordering Physician Moses PERRY JOYA Accession Number [id number] CPT4 Codes 77094 (CT Abdomen/Pelvis w/ IV Contrast (IV Onl) [...] Transcribed Date and Time: 07/20/2018 1:10 Normal [facility] CT Chest w/ Contraston 07-20 CT Chest w/ Contrast Patient Name: KATHYA RAY CT Exam Date/Time 07/20/2018 11:30:[address] Chest w/ Contrast Ordering Physician [id number] THAKKAR Accession Number [id number] CPT4 Codes 25320 (), Q9967 (CT ISOVUE 370MG/[id number]) Reason For Exam SOB, possible pneumonia Report [...] Transcribed Date and Time: 07/20/2018 1:[address] [facility] Glucose,Bedsideon 07-20-2018 Glucose mass conc 128 mg/dL High 70-100 [facility] Comment on above: Result Comment: Test performed by glucose meter. Results may be 10%-15% lower than serum/plasma values. (CLIA ID [id number]) Performed By: #### A DDON #### [facility] [address] [place] [address] Hemogram w/ Autodiffon 07-20 Abs Baso Cnt 0.1 10*3/uL Normal 0.0-0.2 [facility] Comment on above: Performed By: #### H EMDF, PT, BMP3M, PHOS3, MG3, CK3 #### [facility] [address] [place] [address] #### VD25H #### [facility] [address] [place] [address] Abs Neutrophile Cnt 13.0 10*3/uL High 1.8-7.0 [facility] Comment on above: Performed By: #### H EMDF, PT, BMP3M, PHOS3, MG3, CK3 #### [address] #### VD25H #### [facility] [address] [place] [address] Basophils/100 WBC (Bld) 0.3 % Normal 0.0-2.0 [facility] Comment on above: Performed By: #### H EMDF, PT, BMP3M, PHOS3, MG3, CK3 #### [address] #### VD25H #### [address] [place] [address] Eosinophils #/vol (Bld) 0.3 10*3/uL Normal 0.0-0.5 [facility] Comment on above: Performed By: #### H EMDF, PT, BMP3M, PHOS3, MG3, CK3 #### [address] #### VD25H #### [address] [place] [address] Eosinophils/100 WBC (Bld) 1.9 % Normal 1.0-6.0 [facility] Comment on above: Performed By: #### H EMDF, PT, BMP3M, PHOS3, MG3, CK3 #### [address] #### VD25H #### [facility] [address] [place] [address] Erythrocyte distribution width Ratio (RBC) 13.3 % Normal 11.5-14.5 [facility] Comment on above: Performed By: #### H EMDF, PT, BMP3M, PHOS3, MG3, CK3 #### [address] #### VD25H #### [facility] [address] [place] [address] Granulocytes/100 WBC (Bld) 81.8 % High 40.0-80.0 [facility] Comment on above: Performed By: #### H EMDF, PT, BMP3M, PHOS3, MG3, CK3 #### [address] #### VD25H #### [facility] [address] [place] [address] Hematocrit Volume Fraction (Bld) 33.6 % Low 40.0-52.0 [facility] Comment on above: Performed By: #### H EMDF, PT, BMP3M, PHOS3, MG3, CK3 #### [address] #### VD25H #### [facility] [address] [place] [address] Hemoglobin mass conc (Bld) 11.4 g/dL Low 13.0-18.0 [facility] Comment on above: Performed By: #### H EMDF, PT, BMP3M, PHOS3, MG3, CK3 #### [address] [address] [place] #### VD25H #### [facility] [address] [place] [address] Lymphocytes #/vol (Bld) 1.5 10*3/uL Normal 1.0-4.3 [facility] Comment on above: Performed By: #### H EMDF, PT, BMP3M, PHOS3, MG3, CK3 #### [address] #### VD25H #### [facility] [address] [place] [address] Lymphocytes/100 WBC (Bld) 9.2 % Low 20.0-40.0 [facility] Comment on above: Performed By: #### H EMDF, PT, BMP3M, PHOS3, MG3, CK3 #### [facility] [address] [place], [place] #### VD25H #### [facility] [address] [place] [address] MCH Entitic mass (RBC) 29.3 pg Normal 26.0-34.0 [facility] Comment on above: Performed By: #### H EMDF, PT, BMP3M, PHOS3, MG3, CK3 #### [address] [place], [place] #### VD25H #### [facility] [address] [place] [address] MCHC mass conc (RBC) 33.9 % Normal 32.0-36.0 [facility] Comment on above: Performed By: #### H EMDF, PT, BMP3M, PHOS3, MG3, CK3 #### [address] #### VD25H #### [address] [place] [address] MCV Entitic volume (RBC) 86.5 fL Normal 80.0-98.0 [facility] Comment on above: Performed By: #### H EMDF, PT, BMP3M, PHOS3, MG3, CK3 #### [address] #### VD25H #### [facility] [address] [place] [address] Monocytes #/vol (Bld) 1.1 10*3/uL High 0.0-0.8 [facility] Comment on above: Performed By: #### H EMDF, PT, BMP3M, PHOS3, MG3, CK3 #### [address] [place], [place] #### VD25H #### [facility] [address] [place] [address] Monocytes/100 WBC (Bld) 6.8 % Normal 2.0-10.0 [facility] Comment on above: Performed By: #### H EMDF, PT, BMP3M, PHOS3, MG3, CK3 #### [address] [place], [place] #### VD25H #### [facility] [address] [place] [address] Platelet mean volume Entitic volume (Bld) 7.5 fL Normal 7.4-10.4 [facility] Comment on above: Performed By: #### H EMDF, PT, BMP3M, PHOS3, MG3, CK3 #### [address] [place], [place] #### VD25H #### [facility] [address] [place] [address] Platelets #/vol (Bld) 375 10*3/uL Normal 140-440 [facility] Comment on above: Performed By: #### H EMDF, PT, BMP3M, PHOS3, MG3, CK3 #### [address] #### VD25H #### [address] [place] [address] RBC #/vol (Bld) 3.88 10*6/uL Low 4.40-5.90 [facility] Comment on above: Performed By: #### H EMDF, PT, BMP3M, PHOS3, MG3, CK3 #### [address] #### VD25H #### [address] [place] [address] WBC #/vol (Bld) 15.9 10*3/uL High 3.6-10.7 [facility] Comment on above: Performed By: #### H EMDF, PT, BMP3M, PHOS3, MG3, CK3 #### [address] #### VD25H #### [address] [place] [address] Phosphoruson 07-20-2018 Phosphate mass conc 5.5 mg/dL High 2.5-4.5 [facility] Comment on above: Performed By: #### A DDON #### [address] [place], [place] Add on test from HISon 07-19 Add on test from HIS Accepted Normal [facility] Comment on above: Result Comment: Spec imen available & acceptable for analysis. Performed By: #### H EMDF, PT, BMP3M, PHOS3, MG3, CK3 #### [address] [place], [place] #### VD25H #### [facility] [address] [place] [address] Arterial Blood Gaseson 07-19 CO2 molar conc 31.5 mmol/L High 23.0-27.0 [facility] Comment on above: Performed By: #### H EMDF, PT, BMP3M, PHOS3, MG3, CK3 #### [address] [place], [place] #### VD25H #### [facility] [address] [place] [address] HCO3 molar conc (Bld) 30.2 mmol/L High 21.0-25.0 [facility] Comment on above: Performed By: #### H EMDF, PT, BMP3M, PHOS3, MG3, CK3 #### [address] [address] [place], [place] #### VD25H #### [facility] [address] [place] [address] Hemoglobin mass conc (Bld) 11.7 g/dL Normal ScreenOnly [facility] Comment on above: Performed By: #### H EMDF, PT, BMP3M, PHOS3, MG3, CK3 #### [address] [place], [place] #### VD25H #### [facility] [address] [place] [address] Oxygen ppres (Bld) 85.1 mm[Hg] Normal 80.0-100.0 [facility] Comment on above: Performed By: #### H EMDF, PT, BMP3M, PHOS3, MG3, CK3 #### [facility] [address] [facility], [place] #### VD25H #### [facility] [address] [place] [address] Oxygen saturation in Blood 95.9 % Normal 95.0-100.0 [facility] Comment on above: Performed By: #### H EMDF, PT, BMP3M, PHOS3, MG3, CK3 #### [address] [facility], [place] #### VD25H #### [facility] [address] [place] [address] pCO2 43.6 mm[Hg] Normal 35.0-45.0 [facility] Comment on above: Performed By: #### H EMDF, PT, BMP3M, PHOS3, MG3, CK3 #### [address] [facility], [place] #### VD25H #### [facility] [address] [place] [address] pH (Bld) 7.458 High 7.350-7.450 [facility] Comment on above: Performed By: #### H EMDF, PT, BMP3M, PHOS3, MG3, CK3 #### [address] #### VD25H #### [facility] [address] [place] [address] Std Base Excess 5.7 mmol/L High -3.0-3.[address] [facility] Comment on above: Performed By: #### H EMDF, PT, BMP3M, PHOS3, MG3, CK3 #### [address] [facility], [place] #### VD25H #### [facility] [address] [place] [address] FIO2 40% Normal [facility] Comment on above: Performed By: #### H EMDF, PT, BMP3M, PHOS3, MG3, CK3 #### [facility] [address] [facility], [place] #### VD25H #### [facility] [address] [place] [address] Basic Metabolic Panelon - Calcium mass conc 7.5 mg/dL Low 8.4-10.4 [facility] Comment on above: Performed By: #### H EMDF, PT, BMP3M, PHOS3, MG3, CK3 #### [address] [facility], [place] #### VD25H #### [facility] [address] [place] [address] Glucose mass conc 274 mg/dL High 70-100 [facility] Comment on above: Performed By: #### H EMDF, PT, BMP3M, PHOS3, MG3, CK3 #### [address] [facility], [place] #### VD25H #### [facility] [address] [place] [address] Anion gap molar conc 6 Normal [facility] Comment on above: Performed By: #### H EMDF, PT, BMP3M, PHOS3, MG3, CK3 #### [address] [facility], [place] #### VD25H #### [facility] [address] [place] [address] CO2 molar conc 31 mmol/L High 22-30 [facility] Comment on above: Performed By: #### H EMDF, PT, BMP3M, PHOS3, MG3, CK3 #### [address] [facility], [place] #### VD25H #### [facility] [address] [place] [address] Creatinine mass conc 0.64 mg/dL Normal 0.52-1.25 [facility] Comment on above: Performed By: #### H EMDF, PT, BMP3M, PHOS3, MG3, CK3 #### [facility] [address] [place] [address] #### VD25H #### [facility] [address] [place] [address] GFR/1.73 sq M predicted among blacks MDRD vol rate/area (S/P/Bld) mL/min/{1.73_m2} Normal >60 [facility] Comment on above: Performed By: #### H EMDF, PT, BMP3M, PHOS3, MG3, CK3 #### [address] [address] #### VD25H #### [place] [place] [address] GFR/1.73 sq M predicted among non-blacks MDRD vol rate/area (S/P/Bld) mL/min/{1.73_m2} Normal >60 [facility] Comment on above: Result Comment: Sour ce- MDRD equation with creatinine calibration to IDMS(NKDEP) eGFR not recommended for drug dose adjustment Performed By: #### H EMDF, PT, BMP3M, PHOS3, MG3, CK3 #### [address] #### VD25H #### [facility] [address] [place] [address] Urea nitrogen mass conc 15 mg/dL Normal 7-20 [facility] Comment on above: Performed By: #### H EMDF, PT, BMP3M, PHOS3, MG3, CK3 #### [address] #### VD25H #### [facility] [address] [place] [address] Chloride molar conc 105 mmol/L Normal 98-107 [facility] Comment on above: Performed By: #### H EMDF, PT, BMP3M, PHOS3, MG3, CK3 #### [address] #### VD25H #### [facility] [address] [place] [address] Potassium molar conc 4.3 mmol/L Normal 3.5-5.1 [facility] Comment on above: Performed By: #### H EMDF, PT, BMP3M, PHOS3, MG3, CK3 #### [facility] [address] [place] [address] #### VD25H #### [facility] [address] [place] [address] Sodium molar conc 141 mmol/L Normal 135-145 [facility] Comment on above: Performed By: #### H EMDF, PT, BMP3M, PHOS3, MG3, CK3 #### [facility] [address] [place] [address] #### VD25H #### [facility] [address] [place] [address] CR Abdomen APon 07-19-2018 CR Abdomen AP Patient Name: KATHYA HOOPER Diagnostic Radiology Exam Date/Time 07/19/2018 06:44:12 EDT Exam CR Abdomen AP Ordering Physician JOYA ROJAS Accession Number [id number] CPT4 Codes 44427 () Reason For Exam ileus Report Abdomen: [...] Transcribed Date and Time: 07/19/2018 7:46 Normal [facility] CR Chest Portableon 07-20-19 19 CR Chest Portable Patient Name: KATHYA HOOPER Diagnostic Radiology Exam Date/Time 07/19/2018 06:43:52 EDT Exam CR Chest Portable Ordering Physician MARIA EUGENIA PEREZ Accession Number [id number] CPT4 Codes 39695 () Reason For Exam ETT placement Report [...] Transcribed Date and Time: 07/19/2018 7:[address] [facility] Glucose,Bedsideon 07-19-2018 Glucose mass conc 95 mg/dL Normal 70-100 [facility] Comment on above: Result Comment: Test performed by glucose meter. Results may be 10%-15% lower than serum/plasma values. (CLIA ID [id number]) Performed By: #### H EMDF, PT, BMP3M, PHOS3, MG3, CK3 #### [address] #### VD25H #### [facility] [address] [place] [address] Hemogram w/ Autodiffon 07-19 Abs Baso Cnt 0.1 10*3/uL Normal 0.0-0.2 [facility] Comment on above: Performed By: #### H EMDF, PT, BMP3M, PHOS3, MG3, CK3 #### [facility] [address] [place] [address] #### VD25H #### [facility] [address] [place] [address] Abs Neutrophile Cnt 9.8 10*3/uL High 1.8-7.0 [facility] Comment on above: Performed By: #### H EMDF, PT, BMP3M, PHOS3, MG3, CK3 #### [facility] [address] [place], [place] #### VD25H #### [facility] [address] [place] [address] Basophils/100 WBC (Bld) 0.5 % Normal 0.0-2.0 [facility] Comment on above: Performed By: #### H EMDF, PT, BMP3M, PHOS3, MG3, CK3 #### [address] [address] [place], [place] #### VD25H #### [facility] [address] [place] [address] Eosinophils #/vol (Bld) 0.3 10*3/uL Normal 0.0-0.5 [facility] Comment on above: Performed By: #### H EMDF, PT, BMP3M, PHOS3, MG3, CK3 #### [address] #### VD25H #### [facility] [address] [place] [address] Eosinophils/100 WBC (Bld) 2.5 % Normal 1.0-6.0 [facility] Comment on above: Performed By: #### H EMDF, PT, BMP3M, PHOS3, MG3, CK3 #### [facility] [address] [place], [place] #### VD25H #### [facility] [address] [place] [address] Erythrocyte distribution width Ratio (RBC) 13.3 % Normal 11.5-14.5 [facility] Comment on above: Performed By: #### H EMDF, PT, BMP3M, PHOS3, MG3, CK3 #### [address] #### VD25H #### [facility] [address] [place] [address] Granulocytes/100 WBC (Bld) 80.4 % High 40.0-80.0 [facility] Comment on above: Performed By: #### H EMDF, PT, BMP3M, PHOS3, MG3, CK3 #### [facility] [address] [place], [place] #### VD25H #### [facility] [address] [place] [address] Hematocrit Volume Fraction (Bld) 30.6 % Low 40.0-52.0 [facility] Comment on above: Performed By: #### H EMDF, PT, BMP3M, PHOS3, MG3, CK3 #### [address] #### VD25H #### [facility] [address] [place] [address] Hemoglobin mass conc (Bld) 10.5 g/dL Low 13.0-18.0 [facility] Comment on above: Performed By: #### H EMDF, PT, BMP3M, PHOS3, MG3, CK3 #### [facility] [address] [place], [place] #### VD25H #### [facility] [address] [place] [address] Lymphocytes #/vol (Bld) 1.1 10*3/uL Normal 1.0-4.3 [facility] Comment on above: Performed By: #### H EMDF, PT, BMP3M, PHOS3, MG3, CK3 #### [facility] [address] [place], [place] #### VD25H #### [facility] [address] [place] [address] Lymphocytes/100 WBC (Bld) 9.1 % Low 20.0-40.0 [facility] Comment on above: Performed By: #### H EMDF, PT, BMP3M, PHOS3, MG3, CK3 #### [facility] [address] [place], [place] #### VD25H #### [facility] [address] [place] [address] MCH Entitic mass (RBC) 29.7 pg Normal 26.0-34.0 [facility] Comment on above: Performed By: #### H EMDF, PT, BMP3M, PHOS3, MG3, CK3 #### [place] [address] [place], [place] #### VD25H #### [facility] [address] [place] [address] MCHC mass conc (RBC) 34.3 % Normal 32.0-36.0 [facility] Comment on above: Performed By: #### H EMDF, PT, BMP3M, PHOS3, MG3, CK3 #### [address] #### VD25H #### [place] [address] [place] [address] MCV Entitic volume (RBC) 86.7 fL Normal 80.0-98.0 [facility] Comment on above: Performed By: #### H EMDF, PT, BMP3M, PHOS3, MG3, CK3 #### [address] #### VD25H #### [place] [address] [place] [address] Monocytes #/vol (Bld) 0.9 10*3/uL High 0.0-0.8 [facility] Comment on above: Performed By: #### H EMDF, PT, BMP3M, PHOS3, MG3, CK3 #### [address] #### VD25H #### [place] [address] [place] [address] Monocytes/100 WBC (Bld) 7.5 % Normal 2.0-10.0 [facility] Comment on above: Performed By: #### H EMDF, PT, BMP3M, PHOS3, MG3, CK3 #### [address] #### VD25H #### [facility] [address] [place] [address] Platelet mean volume Entitic volume (Bld) 7.3 fL Low 7.4-10.4 [facility] Comment on above: Performed By: #### H EMDF, PT, BMP3M, PHOS3, MG3, CK3 #### [address] #### VD25H #### [facility] [address] [place] [address] Platelets #/vol (Bld) 329 10*3/uL Normal 140-440 [facility] Comment on above: Performed By: #### H EMDF, PT, BMP3M, PHOS3, MG3, CK3 #### [address] #### VD25H #### [place] [address] [place] [address] RBC #/vol (Bld) 3.53 10*6/uL Low 4.40-5.90 [facility] Comment on above: Performed By: #### H EMDF, PT, BMP3M, PHOS3, MG3, CK3 #### [address] #### VD25H #### [place] [address] [place] [address] WBC #/vol (Bld) 12.2 10*3/uL High 3.6-10.7 [facility] Comment on above: Performed By: #### H EMDF, PT, BMP3M, PHOS3, MG3, CK3 #### [address] #### VD25H #### [facility] [address] [place] [address] Magnesiumon 07-19-2018 Magnesium mass conc 2.3 mg/dL Normal 1.6-2.3 [facility] Comment on above: Performed By: #### H EMDF, PT, BMP3M, PHOS3, MG3, CK3 #### [facility] [address] [place], [place] #### VD25H #### [facility] [address] [place] [address] Procalcitoninon 07-19-2018 Protein mass conc 0.15 ng/mL Abnormal <0.10 [facility] Comment on above: Performed By: #### H EMDF, PT, BMP3M, PHOS3, MG3, CK3 #### [facility] [address] [place], [place] #### VD25H #### [facility] [address] [place] [address] Interpretation See Below Normal [facility] Comment on above: Result Comment: PCT <0.50 = Low risk of severe sepsis and/or septic shock. PCT >2.00 = High risk of severe sepsis and/or septic shock. Performed By: #### H EMDF, PT, BMP3M, PHOS3, MG3, CK3 #### [facility] [address] [place], [place] #### VD25H #### [facility] [address] [place] [address] VL Venous Duplex US Lower Ex t Bilateralon 07-19-2018 VL Venous Duplex US Lower Ext Bilateral Patient Name: KATHYA HOOPER Ultrasound Exam Date/Time 07/19/2018 11:10:14 EDT Exam VL Venous Duplex US Lower Ext Bilateral Ordering Physician ETIENNE MARTÍNEZ JULIE Accession Number [id number] CPT4 Codes 58423 () Reason For Exam edema Report [facility] --- Lower Extremity Venous Duplex Report Patient Name: Kathya Hooper : 1955 Study Date: 07/19/2018 W (63yrs) Age: 63 Account: [id number] Gender: M Loc: T209 BP: Ordering: Yesenia Martínez Technologist: Ordering Physician: Yesenia Martínez Ankle Patch Molder: León Chaidez Lissette, [facility] Interpreting Physician: Ricardo Hall MD --- Location: [facility] --- INDICATIONS: Edema. bilateral [...] performed. The images were obtained using a Yelago E9 vascular ultrasound machine. --- VENOUS FLOW [...] --+ Electronically signed by: Ricardo Hall MD [id number] Final Dictated: 07/20/2018 10:49 am Dictating Physician: RICARDO HALL Signed Date and Time: 07/19/2018 11:03 am Signed by: RICARDO HALL Normal [facility] Basic Metabolic Panelon 03-2 Calcium mass conc 7.9 mg/dL Low 8.4-10.4 [facility] Comment on above: Performed By: #### H EMDF, PT, BMP3M, PHOS3, MG3, CK3 #### [facility] [employer] [address] [place], [place] #### VD25H #### [employer] [address] [place] [address] Glucose mass conc 113 mg/dL High 70-100 [facility] Comment on above: Performed By: #### H EMDF, PT, BMP3M, PHOS3, MG3, CK3 #### [employer] [address] [place], [place] #### VD25H #### [facility] [address] [place] [address] Anion gap molar conc 7 Normal [facility] Comment on above: Performed By: #### H EMDF, PT, BMP3M, PHOS3, MG3, CK3 #### [facility] [address] [place], [place] #### VD25H #### [facility] [address] [place] [address] CO2 molar conc 31 mmol/L High 22-30 [facility] Comment on above: Performed By: #### H EMDF, PT, BMP3M, PHOS3, MG3, CK3 #### [address] [address] #### VD25H #### [facility] [address] [place] [address] Creatinine mass conc 0.59 mg/dL Normal 0.52-1.25 [facility] Comment on above: Performed By: #### H EMDF, PT, BMP3M, PHOS3, MG3, CK3 #### [address] #### VD25H #### [place] [address] [place] [address] GFR/1.73 sq M predicted among blacks MDRD vol rate/area (S/P/Bld) mL/min/{1.73_m2} Normal >60 [facility] Comment on above: Performed By: #### H EMDF, PT, BMP3M, PHOS3, MG3, CK3 #### [address] #### VD25H #### [facility] [address] [place] [address] GFR/1.73 sq M predicted among non-blacks MDRD vol rate/area (S/P/Bld) mL/min/{1.73_m2} Normal >60 [facility] Comment on above: Result Comment: Sour ce- MDRD equation with creatinine calibration to IDMS(NKDEP) eGFR not recommended for drug dose adjustment Performed By: #### H EMDF, PT, BMP3M, PHOS3, MG3, CK3 #### [address] #### VD25H #### [place] [address] [place] [address] Urea nitrogen mass conc 19 mg/dL Normal 7-20 [facility] Comment on above: Performed By: #### H EMDF, PT, BMP3M, PHOS3, MG3, CK3 #### [facility] [address] [place] [facility] [address] #### VD25H #### [facility] [address] [place] [address] Chloride molar conc 104 mmol/L Normal 98-107 [facility] Comment on above: Performed By: #### H EMDF, PT, BMP3M, PHOS3, MG3, CK3 #### [facility] [address] [facility], [place] #### VD25H #### [facility] [address] [place] [address] Potassium molar conc 3.4 mmol/L Low 3.5-5.1 [facility] Comment on above: Performed By: #### H EMDF, PT, BMP3M, PHOS3, MG3, CK3 #### [facility] [address] [facility], [place] #### VD25H #### [facility] [address] [place] [address] Sodium molar conc 142 mmol/L Normal 135-145 [facility] Comment on above: Performed By: #### H EMDF, PT, BMP3M, PHOS3, MG3, CK3 #### [facility] [address] [facility], [place] #### VD25H #### [facility] [address] [place] [address] CR Abdomen APon 07-18-2018 CR Abdomen AP Patient Name: KATHYA HOOPER Diagnostic Radiology Exam Date/Time 07/18/2018 06:52:18 EDT Exam CR Abdomen AP Ordering Physician [id number] AGUILERA Accession Number [id number] CPT4 Codes 01286 () Reason For Exam ileus Report CLINICAL [...] Transcribed Date and Time: 07/18/2018 2:33 Normal [facility] CR Chest Portableon 07-19-19 19 CR Chest Portable Patient Name: KATHYA HOOPER Diagnostic Radiology Exam Date/Time 07/18/2018 06:52:50 EDT Exam CR Chest Portable Ordering Physician MARIA EUGENIA PEREZ Accession Number [id number] CPT4 Codes 67275 () Reason For Exam ETT placement Report [...] Transcribed Date and Time: 07/18/2018 2:32 Normal [facility] Hemogram w/ Autodiffon 07-18 Abs Baso Cnt 0.0 10*3/uL Normal 0.0-0.2 [facility] Comment on above: Performed By: #### H EMDF, PT, BMP3M, PHOS3, MG3, CK3 #### [address] #### VD25H #### [facility] [address] [place] [address] Abs Neutrophile Cnt 8.6 10*3/uL High 1.8-7.0 [facility] Comment on above: Performed By: #### H EMDF, PT, BMP3M, PHOS3, MG3, CK3 #### [address] #### VD25H #### [facility] [address] [place] [address] Basophils/100 WBC (Bld) 0.4 % Normal 0.0-2.0 [facility] Comment on above: Performed By: #### H EMDF, PT, BMP3M, PHOS3, MG3, CK3 #### [address] #### VD25H #### [facility] [address] [place] [address] Eosinophils #/vol (Bld) 0.2 10*3/uL Normal 0.0-0.5 [facility] Comment on above: Performed By: #### H EMDF, PT, BMP3M, PHOS3, MG3, CK3 #### [address] #### VD25H #### [facility] [address] [place] [address] Eosinophils/100 WBC (Bld) 2.1 % Normal 1.0-6.0 [facility] Comment on above: Performed By: #### H EMDF, PT, BMP3M, PHOS3, MG3, CK3 #### [address] [place] #### VD25H #### [facility] [address] [place] [address] Erythrocyte distribution width Ratio (RBC) 13.4 % Normal 11.5-14.5 [facility] Comment on above: Performed By: #### H EMDF, PT, BMP3M, PHOS3, MG3, CK3 #### [address] #### VD25H #### [facility] [address] [place] [address] Granulocytes/100 WBC (Bld) 80.0 % Normal 40.0-80.0 [facility] Comment on above: Performed By: #### H EMDF, PT, BMP3M, PHOS3, MG3, CK3 #### [address] #### VD25H #### [facility] [address] [place] [address] Hematocrit Volume Fraction (Bld) 37.3 % Low 40.0-52.0 [facility] Comment on above: Performed By: #### H EMDF, PT, BMP3M, PHOS3, MG3, CK3 #### [address] #### VD25H #### [facility] [address] [place] [address] Hemoglobin mass conc (Bld) 12.6 g/dL Low 13.0-18.0 [facility] Comment on above: Performed By: #### H EMDF, PT, BMP3M, PHOS3, MG3, CK3 #### [address] #### VD25H #### [facility] [address] [place] [address] Lymphocytes #/vol (Bld) 1.1 10*3/uL Normal 1.0-4.3 [facility] Comment on above: Performed By: #### H EMDF, PT, BMP3M, PHOS3, MG3, CK3 #### [address] [place] [address] #### VD25H #### [facility] [address] [place] [address] Lymphocytes/100 WBC (Bld) 10.3 % Low 20.0-40.0 [facility] Comment on above: Performed By: #### H EMDF, PT, BMP3M, PHOS3, MG3, CK3 #### [place] [address] [place], [place] #### VD25H #### [facility] [address] [place] [address] MCH Entitic mass (RBC) 29.4 pg Normal 26.0-34.0 [facility] Comment on above: Performed By: #### H EMDF, PT, BMP3M, PHOS3, MG3, CK3 #### [address] #### VD25H #### [facility] [address] [place] [address] MCHC mass conc (RBC) 33.9 % Normal 32.0-36.0 [facility] Comment on above: Performed By: #### H EMDF, PT, BMP3M, PHOS3, MG3, CK3 #### [address] #### VD25H #### [facility] [address] [place] [address] MCV Entitic volume (RBC) 86.8 fL Normal 80.0-98.0 [facility] Comment on above: Performed By: #### H EMDF, PT, BMP3M, PHOS3, MG3, CK3 #### [address] #### VD25H #### [facility] [address] [place] [address] Monocytes #/vol (Bld) 0.8 10*3/uL Normal 0.0-0.8 [facility] Comment on above: Performed By: #### H EMDF, PT, BMP3M, PHOS3, MG3, CK3 #### [place] [address] [place], [place] #### VD25H #### [facility] [address] [place] [address] Monocytes/100 WBC (Bld) 7.2 % Normal 2.0-10.0 [facility] Comment on above: Performed By: #### H EMDF, PT, BMP3M, PHOS3, MG3, CK3 #### [address] [place], [place] #### VD25H #### [facility] [address] [place] [address] Platelet mean volume Entitic volume (Bld) 7.8 fL Normal 7.4-10.4 [facility] Comment on above: Performed By: #### H EMDF, PT, BMP3M, PHOS3, MG3, CK3 #### [place] [address] [place], [place] #### VD25H #### [facility] [address] [place] [address] Platelets #/vol (Bld) 301 10*3/uL Normal 140-440 [facility] Comment on above: Performed By: #### H EMDF, PT, BMP3M, PHOS3, MG3, CK3 #### [address] #### VD25H #### [facility] [address] [place] [address] RBC #/vol (Bld) 4.29 10*6/uL Low 4.40-5.90 [facility] Comment on above: Performed By: #### H EMDF, PT, BMP3M, PHOS3, MG3, CK3 #### [address] #### VD25H #### [facility] [address] [place] [address] WBC #/vol (Bld) 10.8 10*3/uL High 3.6-10.7 [facility] Comment on above: Performed By: #### H EMDF, PT, BMP3M, PHOS3, MG3, CK3 #### [place] [address] [place], [place] #### VD25H #### [facility] [address] [place] [address] Arterial Blood Gaseson 07-17 CO2 molar conc 29.7 mmol/L High 23.0-27.0 [facility] Comment on above: Performed By: #### H EMDF, PT, BMP3M, PHOS3, MG3, CK3 #### [address] #### VD25H #### [facility] [address] [place] [address] HCO3 molar conc (Bld) 28.4 mmol/L High 21.0-25.0 [facility] Comment on above: Performed By: #### H EMDF, PT, BMP3M, PHOS3, MG3, CK3 #### [address] #### VD25H #### [facility] [address] [place] [address] Hemoglobin mass conc (Bld) 11.1 g/dL Normal ScreenOnly [facility] Comment on above: Performed By: #### H EMDF, PT, BMP3M, PHOS3, MG3, CK3 #### [place] [address] [place], [place] #### VD25H #### [facility] [address] [place] [address] Oxygen ppres (Bld) 109.2 mm[Hg] High 80.0-100.0 [facility] Comment on above: Performed By: #### H EMDF, PT, BMP3M, PHOS3, MG3, CK3 #### [address] #### VD25H #### [facility] [address] [place] [address] Oxygen saturation in Blood 97.8 % Normal 95.0-100.0 [facility] Comment on above: Performed By: #### H EMDF, PT, BMP3M, PHOS3, MG3, CK3 #### [place] [address] [place], [place] #### VD25H #### [facility] [address] [place] [address] pCO2 39.8 mm[Hg] Normal 35.0-45.0 [facility] Comment on above: Performed By: #### H EMDF, PT, BMP3M, PHOS3, MG3, CK3 #### [address] #### VD25H #### [facility] [address] [place] [address] pH (Bld) 7.472 High 7.350-7.450 [facility] Comment on above: Performed By: #### H EMDF, PT, BMP3M, PHOS3, MG3, CK3 #### [address] #### VD25H #### [facility] [address] [place] [address] Std Base Excess 4.5 mmol/L High -3.0-3.[address] [facility] Comment on above: Performed By: #### H EMDF, PT, BMP3M, PHOS3, MG3, CK3 #### [place] [address] [place], [place] #### VD25H #### [facility] [address] [place] [address] FIO2 60% Normal [facility] Comment on above: Performed By: #### H EMDF, PT, BMP3M, PHOS3, MG3, CK3 #### [address] #### VD25H #### [facility] [address] [place] [address] Basic Metabolic Panelon 03-1 Anion gap molar conc 6 Normal [facility] Comment on above: Performed By: #### H EMDF, PT, BMP3M, PHOS3, MG3, CK3 #### [place] [address] [place], [place] #### VD25H #### [facility] [address] [place] [address] Calcium mass conc 8.0 mg/dL Low 8.4-10.4 [facility] Comment on above: Performed By: #### H EMDF, PT, BMP3M, PHOS3, MG3, CK3 #### [place] [address] [place], [place] #### VD25H #### [facility] [address] [place] [address] CO2 molar conc 31 mmol/L High 22-30 [facility] Comment on above: Performed By: #### H EMDF, PT, BMP3M, PHOS3, MG3, CK3 #### [place] [address] [facility], [place] #### VD25H #### [facility] [address] [place] [address] Glucose mass conc 107 mg/dL High 70-100 [facility] Comment on above: Performed By: #### H EMDF, PT, BMP3M, PHOS3, MG3, CK3 #### [place] [address] [place] #### VD25H #### [facility] [address] [place] [address] Urea nitrogen mass conc 22 mg/dL High 7-20 [facility] Comment on above: Performed By: #### H EMDF, PT, BMP3M, PHOS3, MG3, CK3 #### [place] [address] [facility], [place] #### VD25H #### [facility] [address] [place] [address] Creatinine mass conc 0.66 mg/dL Normal 0.52-1.25 [facility] Comment on above: Performed By: #### H EMDF, PT, BMP3M, PHOS3, MG3, CK3 #### [address] [address] #### VD25H #### [facility] [address] [place] [address] GFR/1.73 sq M predicted among blacks MDRD vol rate/area (S/P/Bld) mL/min/{1.73_m2} Normal >60 [facility] Comment on above: Performed By: #### H EMDF, PT, BMP3M, PHOS3, MG3, CK3 #### [address] #### VD25H #### [facility] [address] [place] [address] GFR/1.73 sq M predicted among non-blacks MDRD vol rate/area (S/P/Bld) mL/min/{1.73_m2} Normal >60 [facility] Comment on above: Result Comment: Sour ce- MDRD equation with creatinine calibration to IDMS(NKDEP) eGFR not recommended for drug dose adjustment Performed By: #### H EMDF, PT, BMP3M, PHOS3, MG3, CK3 #### [address] #### VD25H #### [facility] [address] [place] [address] Chloride molar conc 105 mmol/L Normal 98-107 [facility] Comment on above: Performed By: #### H EMDF, PT, BMP3M, PHOS3, MG3, CK3 #### [address] #### VD25H #### [facility] [address] [place] [address] Potassium molar conc 3.9 mmol/L Normal 3.5-5.1 [facility] Comment on above: Performed By: #### H EMDF, PT, BMP3M, PHOS3, MG3, CK3 #### [address] [place] [address] #### VD25H #### [facility] [address] [place] [address] Sodium molar conc 142 mmol/L Normal 135-145 [facility] Comment on above: Performed By: #### H EMDF, PT, BMP3M, PHOS3, MG3, CK3 #### [facility] [address] [place] [address] #### VD25H #### [facility] [address] [place] [address] CR Abdomen APon 07-17-2018 CR Abdomen AP Patient Name: KATHYA HOOPER Diagnostic Radiology Exam Date/Time 07/17/2018 12:46:31 EDT Exam CR Abdomen AP Ordering Physician JOYA ROJAS Accession Number [id number] CPT4 Codes 90506 () Reason For Exam ileus Report Abdomen: [...] Transcribed Date and Time: 07/17/2018 12:46 Normal [facility] CR Abdomen AP Patient Name: KATHYA HOOPER Diagnostic Radiology Exam Date/Time 07/17/2018 06:25:43 EDT Exam CR Abdomen AP Ordering Physician JOYA ROJAS Accession Number [id number] CPT4 Codes 36665 () Reason For Exam ileus Report Abdomen: [...] Transcribed Date and Time: 07/17/2018 7:16 Normal [facility] CR Chest Portableon 07-18-19 CR Chest Portable Patient Name: KATHYA HOOPER Diagnostic Radiology Exam Date/Time 07/17/2018 18:08:41 EDT Exam CR Chest Portable Ordering Physician SALO DAVIS Accession Number [id number] CPT4 Codes 97921 () Reason For Exam picc Report CHEST [...] R Transcribed Date and Time: 07/17/2018 7:24 [facility] CR Chest Portable Patient Name: KATHYA HOOPER Diagnostic Radiology Exam Date/Time 07/17/2018 18:08:41 EDT Exam CR Chest Portable Ordering Physician SALO DAVIS Accession Number [id number] CPT4 Codes 72405 () Reason For Exam reheck line tip [...] Transcribed Date and Time: 07/17/2018 7:21 Normal [facility] CR Chest Portable Patient Name: KATHYA HOOPER Diagnostic Radiology Exam Date/Time 07/17/2018 06:26:06 EDT Exam CR Chest Portable Ordering Physician MARIA EUGENIA PEREZ Accession Number [id number] CPT4 Codes 26535 () Reason For Exam ETT placement Report [...] Transcribed Date and Time: 07/17/2018 7:17 Normal [facility] Hemogram w/ Autodiffon 07-17 Abs Baso Cnt 0.0 10*3/uL Normal 0.0-0.2 [facility] Comment on above: Performed By: #### H EMDF, PT, BMP3M, PHOS3, MG3, CK3 #### [address] #### VD25H #### [facility] [address] [place] [address] Abs Neutrophile Cnt 8.1 10*3/uL High 1.8-7.0 [facility] Comment on above: Performed By: #### H EMDF, PT, BMP3M, PHOS3, MG3, CK3 #### [address] #### VD25H #### [facility] [address] [place] [address] Basophils/100 WBC (Bld) 0.4 % Normal 0.0-2.0 [facility] Comment on above: Performed By: #### H EMDF, PT, BMP3M, PHOS3, MG3, CK3 #### [address] #### VD25H #### [facility] [address] [place] [address] Eosinophils #/vol (Bld) 0.1 10*3/uL Normal 0.0-0.5 [facility] Comment on above: Performed By: #### H EMDF, PT, BMP3M, PHOS3, MG3, CK3 #### [address] #### VD25H #### [facility] [address] [place] [address] Eosinophils/100 WBC (Bld) 1.4 % Normal 1.0-6.0 [facility] Comment on above: Performed By: #### H EMDF, PT, BMP3M, PHOS3, MG3, CK3 #### [address] [address] [place], [place] #### VD25H #### [facility] [address] [place] [address] Erythrocyte distribution width Ratio (RBC) 13.5 % Normal 11.5-14.5 [facility] Comment on above: Performed By: #### H EMDF, PT, BMP3M, PHOS3, MG3, CK3 #### [address] #### VD25H #### [place] [address] [place] [address] Granulocytes/100 WBC (Bld) 78.6 % Normal 40.0-80.0 [facility] Comment on above: Performed By: #### H EMDF, PT, BMP3M, PHOS3, MG3, CK3 #### [address] #### VD25H #### [facility] [address] [place] [address] Hematocrit Volume Fraction (Bld) 31.3 % Low 40.0-52.0 [facility] Comment on above: Performed By: #### H EMDF, PT, BMP3M, PHOS3, MG3, CK3 #### [address] [place], [place] #### VD25H #### [facility] [address] [place] [address] Hemoglobin mass conc (Bld) 10.4 g/dL Low 13.0-18.0 [facility] Comment on above: Performed By: #### H EMDF, PT, BMP3M, PHOS3, MG3, CK3 #### [address] #### VD25H #### [facility] [address] [place] [address] Lymphocytes #/vol (Bld) 1.0 10*3/uL Normal 1.0-4.3 [facility] Comment on above: Performed By: #### H EMDF, PT, BMP3M, PHOS3, MG3, CK3 #### [address] [address] [place], [place] #### VD25H #### [facility] [address] [place] [address] Lymphocytes/100 WBC (Bld) 10.0 % Low 20.0-40.0 [facility] Comment on above: Performed By: #### H EMDF, PT, BMP3M, PHOS3, MG3, CK3 #### [address] [address] [address] [place], [place] #### VD25H #### [facility] [address] [place] [address] MCH Entitic mass (RBC) 29.3 pg Normal 26.0-34.0 [facility] Comment on above: Performed By: #### H EMDF, PT, BMP3M, PHOS3, MG3, CK3 #### [address] [address] [address] [place], [place] #### VD25H #### [facility] [address] [place] [address] MCHC mass conc (RBC) 33.3 % Normal 32.0-36.0 [facility] Comment on above: Performed By: #### H EMDF, PT, BMP3M, PHOS3, MG3, CK3 #### [address] [address] [address] [place], [place] #### VD25H #### [facility] [address] [place] [place] [address] MCV Entitic volume (RBC) 87.9 fL Normal 80.0-98.0 [facility] Comment on above: Performed By: #### H EMDF, PT, BMP3M, PHOS3, MG3, CK3 #### [address] [place], [place] #### VD25H #### [facility] [address] [place] [address] Monocytes #/vol (Bld) 1.0 10*3/uL High 0.0-0.8 [facility] Comment on above: Performed By: #### H EMDF, PT, BMP3M, PHOS3, MG3, CK3 #### [address] [place], [place] #### VD25H #### [facility] [address] [place] [address] Monocytes/100 WBC (Bld) 9.6 % Normal 2.0-10.0 [facility] Comment on above: Performed By: #### H EMDF, PT, BMP3M, PHOS3, MG3, CK3 #### [address] #### VD25H #### [place] [address] [place] [address] Platelet mean volume Entitic volume (Bld) 7.6 fL Normal 7.4-10.4 [facility] Comment on above: Performed By: #### H EMDF, PT, BMP3M, PHOS3, MG3, CK3 #### [address] #### VD25H #### [facility] [address] [place] [address] Platelets #/vol (Bld) 307 10*3/uL Normal 140-440 [facility] Comment on above: Performed By: #### H EMDF, PT, BMP3M, PHOS3, MG3, CK3 #### [address] #### VD25H #### [facility] [address] [place] [address] RBC #/vol (Bld) 3.56 10*6/uL Low 4.40-5.90 [facility] Comment on above: Performed By: #### H EMDF, PT, BMP3M, PHOS3, MG3, CK3 #### [place] [address] [address] [place], [place] #### VD25H #### [facility] [address] [place] [address] WBC #/vol (Bld) 10.2 10*3/uL Normal 3.6-10.7 [facility] Comment on above: Performed By: #### H EMDF, PT, BMP3M, PHOS3, MG3, CK3 #### [address] [place] [address] [address] [place], [place] #### VD25H #### [facility] [address] [place] [address] Basic Metabolic Panelon 06-29 Calcium mass conc 8.1 mg/dL Low 8.4-10.4 [facility] Comment on above: Performed By: #### H EMDF, PT, BMP3M, PHOS3, MG3, CK3 #### [address] #### VD25H #### [facility] [address] [place] [address] Anion gap molar conc 5 Normal [facility] Comment on above: Performed By: #### H EMDF, PT, BMP3M, PHOS3, MG3, CK3 #### [address] #### VD25H #### [facility] [address] [place] [address] CO2 molar conc 32 mmol/L High 22-30 [facility] Comment on above: Performed By: #### H EMDF, PT, BMP3M, PHOS3, MG3, CK3 #### [address] #### VD25H #### [facility] [address] [place] [address] Creatinine mass conc 0.62 mg/dL Normal 0.52-1.25 [facility] Comment on above: Performed By: #### H EMDF, PT, BMP3M, PHOS3, MG3, CK3 #### [address] [address] #### VD25H #### [facility] [address] [place] [address] GFR/1.73 sq M predicted among blacks MDRD vol rate/area (S/P/Bld) mL/min/{1.73_m2} Normal >60 [facility] Comment on above: Performed By: #### H EMDF, PT, BMP3M, PHOS3, MG3, CK3 #### [address] #### VD25H #### [facility] [address] [place] [address] GFR/1.73 sq M predicted among non-blacks MDRD vol rate/area (S/P/Bld) mL/min/{1.73_m2} Normal >60 [facility] Comment on above: Result Comment: Sour ce- MDRD equation with creatinine calibration to IDMS(NKDEP) eGFR not recommended for drug dose adjustment Performed By: #### H EMDF, PT, BMP3M, PHOS3, MG3, CK3 #### [address] #### VD25H #### [facility] [address] [place] [address] Glucose mass conc 103 mg/dL High 70-100 [facility] Comment on above: Performed By: #### H EMDF, PT, BMP3M, PHOS3, MG3, CK3 #### [address] [address] #### VD25H #### [facility] [address] [place] [address] Urea nitrogen mass conc 20 mg/dL Normal 7-20 [facility] Comment on above: Performed By: #### H EMDF, PT, BMP3M, PHOS3, MG3, CK3 #### [address] [address] #### VD25H #### [facility] [address] [place] [address] Chloride molar conc 107 mmol/L Normal 98-107 [facility] Comment on above: Performed By: #### H EMDF, PT, BMP3M, PHOS3, MG3, CK3 #### [facility] [address] [place], [place] #### VD25H #### [facility] [address] [place] [address] Potassium molar conc 3.7 mmol/L Normal 3.5-5.1 [facility] Comment on above: Performed By: #### H EMDF, PT, BMP3M, PHOS3, MG3, CK3 #### [facility] [address] [place], [place] #### VD25H #### [facility] [address] [place] [address] Sodium molar conc 145 mmol/L Normal 135-145 [facility] Comment on above: Performed By: #### H EMDF, PT, BMP3M, PHOS3, MG3, CK3 #### [facility] [address] [place], [place] #### VD25H #### [facility] [address] [place] [address] CR Abdomen APon 07-16-2018 CR Abdomen AP Patient Name: KATHYA HOOPER Diagnostic Radiology Exam Date/Time 07/16/2018 08:00:58 EDT Exam CR Abdomen AP Ordering Physician [id number] AGUILERA Accession Number [id number] CPT4 Codes 24368 () Reason For Exam ileus Report KUB [...] Transcribed Date and Time: 07/16/2018 10:03 Normal [facility] CR Chest Portableon 07-17-19 19 CR Chest Portable Patient Name: KATHYA HOOPER Diagnostic Radiology Exam Date/Time 07/16/2018 06:19:28 EDT Exam CR Chest Portable Ordering Physician MARIA EUGENIA PEREZ Accession Number [id number] CPT4 Codes 57450 () Reason For Exam ETT placement Report [...] Transcribed Date and Time: 07/16/2018 10:10 Normal [facility] Hemogram w/ Autodiffon 07-16 Abs Baso Cnt 0.0 10*3/uL Normal 0.0-0.2 [facility] Comment on above: Performed By: #### H EMDF, PT, BMP3M, PHOS3, MG3, CK3 #### [facility] [address] [place], [place] #### VD25H #### [facility] [address] [place] [address] Abs Neutrophile Cnt 8.7 10*3/uL High 1.8-7.0 [facility] Comment on above: Performed By: #### H EMDF, PT, BMP3M, PHOS3, MG3, CK3 #### [address] [place] [address] [address] [place], [place] #### VD25H #### [facility] [address] [place] [address] Basophils/100 WBC (Bld) 0.2 % Normal 0.0-2.0 [facility] Comment on above: Performed By: #### H EMDF, PT, BMP3M, PHOS3, MG3, CK3 #### [address] #### VD25H #### [facility] [address] [place] [address] Eosinophils #/vol (Bld) 0.1 10*3/uL Normal 0.0-0.5 [facility] Comment on above: Performed By: #### H EMDF, PT, BMP3M, PHOS3, MG3, CK3 #### [address] #### VD25H #### [facility] [address] [place] [address] Eosinophils/100 WBC (Bld) 0.7 % Low 1.0-6.0 [facility] Comment on above: Performed By: #### H EMDF, PT, BMP3M, PHOS3, MG3, CK3 #### [address] #### VD25H #### [facility] [address] [place] [address] Erythrocyte distribution width Ratio (RBC) 13.7 % Normal 11.5-14.5 [facility] Comment on above: Performed By: #### H EMDF, PT, BMP3M, PHOS3, MG3, CK3 #### [facility] [address] [place] #### VD25H #### [facility] [address] [place] [address] Granulocytes/100 WBC (Bld) 83.0 % High 40.0-80.0 [facility] Comment on above: Performed By: #### H EMDF, PT, BMP3M, PHOS3, MG3, CK3 #### [address] [address] [address] [place], [place] #### VD25H #### [facility] [address] [place] [address] Hematocrit Volume Fraction (Bld) 30.3 % Low 40.0-52.0 [facility] Comment on above: Performed By: #### H EMDF, PT, BMP3M, PHOS3, MG3, CK3 #### [place] [address] [address] [place] #### VD25H #### [facility] [address] [place] [address] Hemoglobin mass conc (Bld) 10.5 g/dL Low 13.0-18.0 [facility] Comment on above: Performed By: #### H EMDF, PT, BMP3M, PHOS3, MG3, CK3 #### [address] #### VD25H #### [facility] [address] [place] [address] Lymphocytes #/vol (Bld) 0.7 10*3/uL Low 1.0-4.3 [facility] Comment on above: Performed By: #### H EMDF, PT, BMP3M, PHOS3, MG3, CK3 #### [address] #### VD25H #### [facility] [address] [place] [address] Lymphocytes/100 WBC (Bld) 6.7 % Low 20.0-40.0 [facility] Comment on above: Performed By: #### H EMDF, PT, BMP3M, PHOS3, MG3, CK3 #### [address] [place], [place] #### VD25H #### [facility] [address] [place] [address] MCH Entitic mass (RBC) 30.2 pg Normal 26.0-34.0 [facility] Comment on above: Performed By: #### H EMDF, PT, BMP3M, PHOS3, MG3, CK3 #### [address] #### VD25H #### [facility] [address] [place] [address] MCHC mass conc (RBC) 34.6 % Normal 32.0-36.0 [facility] Comment on above: Performed By: #### H EMDF, PT, BMP3M, PHOS3, MG3, CK3 #### [address] #### VD25H #### [facility] [address] [place] [address] MCV Entitic volume (RBC) 87.3 fL Normal 80.0-98.0 [facility] Comment on above: Performed By: #### H EMDF, PT, BMP3M, PHOS3, MG3, CK3 #### [address] #### VD25H #### [facility] [address] [place] [address] Monocytes #/vol (Bld) 1.0 10*3/uL High 0.0-0.8 [facility] Comment on above: Performed By: #### H EMDF, PT, BMP3M, PHOS3, MG3, CK3 #### [address] #### VD25H #### [facility] [address] [place] [address] Monocytes/100 WBC (Bld) 9.4 % Normal 2.0-10.0 [facility] Comment on above: Performed By: #### H EMDF, PT, BMP3M, PHOS3, MG3, CK3 #### [facility] [address] [place], [place] #### VD25H #### [facility] [address] [place] [address] Platelet mean volume Entitic volume (Bld) 6.9 fL Low 7.4-10.4 [facility] Comment on above: Performed By: #### H EMDF, PT, BMP3M, PHOS3, MG3, CK3 #### [place] [address] [address] [place], [place] #### VD25H #### [facility] [address] [place] [address] Platelets #/vol (Bld) 254 10*3/uL Normal 140-440 [facility] Comment on above: Performed By: #### H EMDF, PT, BMP3M, PHOS3, MG3, CK3 #### [address] #### VD25H #### [facility] [address] [place] [address] RBC #/vol (Bld) 3.47 10*6/uL Low 4.40-5.90 [facility] Comment on above: Performed By: #### H EMDF, PT, BMP3M, PHOS3, MG3, CK3 #### [address] [place], [place] #### VD25H #### [facility] [address] [place] [address] WBC #/vol (Bld) 10.5 10*3/uL Normal 3.6-10.7 [facility] Comment on above: Performed By: #### H EMDF, PT, BMP3M, PHOS3, MG3, CK3 #### [address] #### VD25H #### [place] [address] [place] [address] Arterial Blood Gaseson 07-15 CO2 molar conc 26.7 mmol/L Normal 23.0-27.0 [facility] Comment on above: Performed By: #### H EMDF, PT, BMP3M, PHOS3, MG3, CK3 #### [address] #### VD25H #### [facility] [address] [place] [address] FIO2 50% Normal [facility] Comment on above: Performed By: #### H EMDF, PT, BMP3M, PHOS3, MG3, CK3 #### [address] #### VD25H #### [place] [address] [place] [address] HCO3 molar conc (Bld) 25.7 mmol/L High 21.0-25.0 [facility] Comment on above: Performed By: #### H EMDF, PT, BMP3M, PHOS3, MG3, CK3 #### [address] #### VD25H #### [place] [address] [place] [address] Hemoglobin mass conc (Bld) 12.5 g/dL Normal ScreenOnly [facility] Comment on above: Performed By: #### H EMDF, PT, BMP3M, PHOS3, MG3, CK3 #### [address] #### VD25H #### [place] [address] [place] [address] Oxygen ppres (Bld) 90.4 mm[Hg] Normal 80.0-100.0 [facility] Comment on above: Performed By: #### H EMDF, PT, BMP3M, PHOS3, MG3, CK3 #### [address] #### VD25H #### [facility] [address] [place] [address] Oxygen saturation in Blood 96.8 % Normal 95.0-100.0 [facility] Comment on above: Performed By: #### H EMDF, PT, BMP3M, PHOS3, MG3, CK3 #### [facility] [address] [place], [place] #### VD25H #### [facility] [address] [place] [address] pCO2 33.4 mm[Hg] Low 35.0-45.0 [facility] Comment on above: Performed By: #### H EMDF, PT, BMP3M, PHOS3, MG3, CK3 #### [place] [address] [place], [place] #### VD25H #### [facility] [address] [place] [address] pH (Bld) 7.504 High 7.350-7.450 [facility] Comment on above: Performed By: #### H EMDF, PT, BMP3M, PHOS3, MG3, CK3 #### [place] [address] [place] #### VD25H #### [facility] [address] [place] [address] Std Base Excess 2.9 mmol/L Normal -3.0-3.0 [facility] Comment on above: Performed By: #### H EMDF, PT, BMP3M, PHOS3, MG3, CK3 #### [place] [address] [place] #### VD25H #### [facility] [address] [place] [address] Basic Metabolic Panelon 06-29 Anion gap molar conc 8 Normal [facility] Comment on above: Performed By: #### H EMDF, PT, BMP3M, PHOS3, MG3, CK3 #### [place] [address] [place] #### VD25H #### [facility] [address] [place] [address] Calcium mass conc 8.6 mg/dL Normal 8.4-10.4 [facility] Comment on above: Performed By: #### H EMDF, PT, BMP3M, PHOS3, MG3, CK3 #### [place] [address] [address] [facility], [place] #### VD25H #### [facility] [address] [place] [address] CO2 molar conc 29 mmol/L Normal 22-30 [facility] Comment on above: Performed By: #### H EMDF, PT, BMP3M, PHOS3, MG3, CK3 #### [place] [address] [address] [facility], [place] #### VD25H #### [place] [address] [place] [address] Glucose mass conc 119 mg/dL High 70-100 [facility] Comment on above: Performed By: #### H EMDF, PT, BMP3M, PHOS3, MG3, CK3 #### [place] [address] [place] #### VD25H #### [facility] [address] [place] [address] Urea nitrogen mass conc 23 mg/dL High 7-20 [facility] Comment on above: Performed By: #### H EMDF, PT, BMP3M, PHOS3, MG3, CK3 #### [place] [address] [address] [facility], [place] #### VD25H #### [facility] [address] [place] [address] Creatinine mass conc 0.73 mg/dL Normal 0.52-1.25 [facility] Comment on above: Performed By: #### H EMDF, PT, BMP3M, PHOS3, MG3, CK3 #### [place] [address] [address] [facility], [place] #### VD25H #### [facility] [address] [place] [address] GFR/1.73 sq M predicted among blacks MDRD vol rate/area (S/P/Bld) mL/min/{1.73_m2} Normal >60 [facility] Comment on above: Performed By: #### H EMDF, PT, BMP3M, PHOS3, MG3, CK3 #### [address] #### VD25H #### [facility] [address] [place] [address] GFR/1.73 sq M predicted among non-blacks MDRD vol rate/area (S/P/Bld) mL/min/{1.73_m2} Normal >60 [facility] Comment on above: Result Comment: Sour ce- MDRD equation with creatinine calibration to IDMS(NKDEP) eGFR not recommended for drug dose adjustment Performed By: #### H EMDF, PT, BMP3M, PHOS3, MG3, CK3 #### [address] #### VD25H #### [facility] [address] [place] [address] Potassium molar conc 4.1 mmol/L Normal 3.5-5.1 [facility] Comment on above: Performed By: #### H EMDF, PT, BMP3M, PHOS3, MG3, CK3 #### [address] #### VD25H #### [facility] [address] [place] [address] Sodium molar conc 144 mmol/L Normal 135-145 [facility] Comment on above: Performed By: #### H EMDF, PT, BMP3M, PHOS3, MG3, CK3 #### [address] #### VD25H #### [facility] [address] [place] [address] Chloride molar conc 107 mmol/L Normal 98-107 [facility] Comment on above: Performed By: #### H EMDF, PT, BMP3M, PHOS3, MG3, CK3 #### [facility] [address] [place] [address] #### VD25H #### [facility] [address] [place] [address] CR Abdomen APon 07-15-2018 CR Abdomen AP Patient Name: KATHYA HOOPER Diagnostic Radiology Exam Date/Time 07/15/2018 09:25:44 EDT Exam CR Abdomen AP Ordering Physician [id number] THAKKAR Accession Number [id number] CPT4 Codes 86669 () Reason For Exam ileus Report EXAMINATION: [...] Transcribed Date and Time: 07/15/2018 10:07 Normal [facility] CR Chest Portableon 07-16-19 19 CR Chest Portable Patient Name: KATHYA HOOPER Diagnostic Radiology Exam Date/Time 07/15/2018 06:00:00 EDT Exam CR Chest Portable Ordering Physician MARIA EUGENIA PEREZ Accession Number [id number] CPT4 Codes 97346 () Reason For Exam ETT placement Report [...] Transcribed Date and Time: 07/15/2018 9:14 Normal [facility] CULT./ST. RESPIRATORYon 06-29 CULT./ST. RESPIRATORY CULT./ST. [...] in clusters. Rare gram negative bacilli. Normal [facility] Comment on above: Order Comment: Speci men Source Comment:Sputum, Suctioned Performed By: #### H EMDF, PT, BMP3M, PHOS3, MG3, CK3 #### [facility] [address] [place] [address] #### VD25H #### [facility] [address] [place] [address] Hemogram w/ Autodiffon 07-15 Abs Baso Cnt 0.0 10*3/uL Normal 0.0-0.2 [facility] Comment on above: Performed By: #### H EMDF, PT, BMP3M, PHOS3, MG3, CK3 #### [facility] [address] [place] [address] #### VD25H #### [facility] [address] [place] [address] Abs Neutrophile Cnt 13.2 10*3/uL High 1.8-7.0 [facility] Comment on above: Performed By: #### H EMDF, PT, BMP3M, PHOS3, MG3, CK3 #### [facility] [address] [place], [place] #### VD25H #### [facility] [address] [place] [address] Basophils/100 WBC (Bld) 0.2 % Normal 0.0-2.0 [facility] Comment on above: Performed By: #### H EMDF, PT, BMP3M, PHOS3, MG3, CK3 #### [place] [address] [place], [place] #### VD25H #### [facility] [address] [place] [address] Eosinophils #/vol (Bld) 0.0 10*3/uL Normal 0.0-0.5 [facility] Comment on above: Performed By: #### H EMDF, PT, BMP3M, PHOS3, MG3, CK3 #### [address] #### VD25H #### [facility] [address] [place] [address] Eosinophils/100 WBC (Bld) 0.1 % Low 1.0-6.0 [facility] Comment on above: Performed By: #### H EMDF, PT, BMP3M, PHOS3, MG3, CK3 #### [address] #### VD25H #### [facility] [address] [place] [address] Erythrocyte distribution width Ratio (RBC) 13.9 % Normal 11.5-14.5 [facility] Comment on above: Performed By: #### H EMDF, PT, BMP3M, PHOS3, MG3, CK3 #### [address] #### VD25H #### [facility] [address] [place] [address] Granulocytes/100 WBC (Bld) 88.1 % High 40.0-80.0 [facility] Comment on above: Performed By: #### H EMDF, PT, BMP3M, PHOS3, MG3, CK3 #### [facility] [address] [place], [place] #### VD25H #### [facility] [address] [place] [address] Hematocrit Volume Fraction (Bld) 35.3 % Low 40.0-52.0 [facility] Comment on above: Performed By: #### H EMDF, PT, BMP3M, PHOS3, MG3, CK3 #### [address] #### VD25H #### [facility] [address] [place] [address] Hemoglobin mass conc (Bld) 11.9 g/dL Low 13.0-18.0 [facility] Comment on above: Performed By: #### H EMDF, PT, BMP3M, PHOS3, MG3, CK3 #### [address] #### VD25H #### [facility] [address] [place] [address] Lymphocytes #/vol (Bld) 0.8 10*3/uL Low 1.0-4.3 [facility] Comment on above: Performed By: #### H EMDF, PT, BMP3M, PHOS3, MG3, CK3 #### [address] #### VD25H #### [facility] [address] [place] [address] Lymphocytes/100 WBC (Bld) 5.0 % Low 20.0-40.0 [facility] Comment on above: Performed By: #### H EMDF, PT, BMP3M, PHOS3, MG3, CK3 #### [address] #### VD25H #### [facility] [address] [place] [address] MCH Entitic mass (RBC) 29.5 pg Normal 26.0-34.0 [facility] Comment on above: Performed By: #### H EMDF, PT, BMP3M, PHOS3, MG3, CK3 #### [facility] [address] [place], [place] #### VD25H #### [facility] [address] [place] [address] MCHC mass conc (RBC) 33.8 % Normal 32.0-36.0 [facility] Comment on above: Performed By: #### H EMDF, PT, BMP3M, PHOS3, MG3, CK3 #### [place] [address] [place], [place] #### VD25H #### [place] [address] [place] [address] MCV Entitic volume (RBC) 87.2 fL Normal 80.0-98.0 [facility] Comment on above: Performed By: #### H EMDF, PT, BMP3M, PHOS3, MG3, CK3 #### [place] [address] [place], [place] #### VD25H #### [facility] [address] [place] [address] Monocytes #/vol (Bld) 1.0 10*3/uL High 0.0-0.8 [facility] Comment on above: Performed By: #### H EMDF, PT, BMP3M, PHOS3, MG3, CK3 #### [place] [address] [place], [place] #### VD25H #### [facility] [address] [place] [address] Monocytes/100 WBC (Bld) 6.6 % Normal 2.0-10.0 [facility] Comment on above: Performed By: #### H EMDF, PT, BMP3M, PHOS3, MG3, CK3 #### [address] #### VD25H #### [facility] [address] [place] [address] Platelet mean volume Entitic volume (Bld) 7.9 fL Normal 7.4-10.4 [facility] Comment on above: Performed By: #### H EMDF, PT, BMP3M, PHOS3, MG3, CK3 #### [place] [address] [place], [place] #### VD25H #### [facility] [address] [place] [address] Platelets #/vol (Bld) 319 10*3/uL Normal 140-440 [facility] Comment on above: Performed By: #### H EMDF, PT, BMP3M, PHOS3, MG3, CK3 #### [address] #### VD25H #### [place] [address] [place] [address] RBC #/vol (Bld) 4.05 10*6/uL Low 4.40-5.90 [facility] Comment on above: Performed By: #### H EMDF, PT, BMP3M, PHOS3, MG3, CK3 #### [address] #### VD25H #### [place] [address] [place] [address] WBC #/vol (Bld) 15.0 10*3/uL High 3.6-10.7 [facility] Comment on above: Performed By: #### H EMDF, PT, BMP3M, PHOS3, MG3, CK3 #### [address] #### VD25H #### [place] [address] [place] [address] Basic Metabolic Panelon - Anion gap molar conc 9 Normal [facility] Comment on above: Performed By: #### H EMDF, PT, BMP3M, PHOS3, MG3, CK3 #### [address] #### VD25H #### [facility] [address] [place] [address] Calcium mass conc 7.6 mg/dL Low 8.4-10.4 [facility] Comment on above: Performed By: #### H EMDF, PT, BMP3M, PHOS3, MG3, CK3 #### [address] [place], [place] #### VD25H #### [facility] [address] [place] [address] CO2 molar conc 26 mmol/L Normal 22-30 [facility] Comment on above: Performed By: #### H EMDF, PT, BMP3M, PHOS3, MG3, CK3 #### [address] #### VD25H #### [facility] [address] [place] [address] Glucose mass conc 148 mg/dL High 70-100 [facility] Comment on above: Performed By: #### H EMDF, PT, BMP3M, PHOS3, MG3, CK3 #### [address] [place], [place] #### VD25H #### [facility] [address] [place] [address] Urea nitrogen mass conc 16 mg/dL Normal 7-20 [facility] Comment on above: Performed By: #### H EMDF, PT, BMP3M, PHOS3, MG3, CK3 #### [address] [place], [place] #### VD25H #### [facility] [address] [place] [address] Creatinine mass conc 0.62 mg/dL Normal 0.52-1.25 [facility] Comment on above: Performed By: #### H EMDF, PT, BMP3M, PHOS3, MG3, CK3 #### [address] #### VD25H #### [facility] [address] [place] [address] GFR/1.73 sq M predicted among blacks MDRD vol rate/area (S/P/Bld) mL/min/{1.73_m2} Normal >60 [facility] Comment on above: Performed By: #### H EMDF, PT, BMP3M, PHOS3, MG3, CK3 #### [address] #### VD25H #### [facility] [address] [place] [address] GFR/1.73 sq M predicted among non-blacks MDRD vol rate/area (S/P/Bld) mL/min/{1.73_m2} Normal >60 [facility] Comment on above: Result Comment: Sour ce- MDRD equation with creatinine calibration to IDMS(NKDEP) eGFR not recommended for drug dose adjustment Performed By: #### H EMDF, PT, BMP3M, PHOS3, MG3, CK3 #### [address] #### VD25H #### [facility] [address] [place] [address] Potassium molar conc 4.5 mmol/L Normal 3.5-5.1 [facility] Comment on above: Performed By: #### H EMDF, PT, BMP3M, PHOS3, MG3, CK3 #### [address] #### VD25H #### [facility] [address] [place] [address] Sodium molar conc 137 mmol/L Normal 135-145 [facility] Comment on above: Performed By: #### H EMDF, PT, BMP3M, PHOS3, MG3, CK3 #### [address] #### VD25H #### [place] [address] [place] [address] Chloride molar conc 103 mmol/L Normal 98-107 [facility] Comment on above: Performed By: #### H EMDF, PT, BMP3M, PHOS3, MG3, CK3 #### [facility] [address] [facility] [place] [address] #### VD25H #### [facility] [address] [place] [address] CR Abdomen APon 07-14-2018 CR Abdomen AP Patient Name: KATHYA HOOPER Diagnostic Radiology Exam Date/Time 07/14/2018 19:15:43 EDT Exam CR Abdomen AP Ordering Physician JOYA ROJAS Accession Number [id number] CPT4 Codes 90104 () Reason For Exam Distended with emesis [...] Transcribed Date and Time: 07/14/2018 7:28 Normal [facility] CR Chest Portableon 07-15-19 19 CR Chest Portable Patient Name: KATHYA HOOPER Diagnostic Radiology Exam Date/Time 07/14/2018 06:53:29 EDT Exam CR Chest Portable Ordering Physician MRAIA EUGENIA PEREZ Accession Number [id number] CPT4 Codes 76208 () Reason For Exam ETT placement Report [...] Transcribed Date and Time: 07/14/2018 11:51 Normal [facility] Hemogram w/ Autodiffon 07-14 Abs Baso Cnt 0.0 10*3/uL Normal 0.0-0.2 [facility] Comment on above: Performed By: #### H EMDF, PT, BMP3M, PHOS3, MG3, CK3 #### [address] #### VD25H #### [facility] [address] [place] [address] Abs Neutrophile Cnt 11.7 10*3/uL High 1.8-7.0 [facility] Comment on above: Performed By: #### H EMDF, PT, BMP3M, PHOS3, MG3, CK3 #### [address] #### VD25H #### [facility] [address] [place] [address] Basophils/100 WBC (Bld) 0.3 % Normal 0.0-2.0 [facility] Comment on above: Performed By: #### H EMDF, PT, BMP3M, PHOS3, MG3, CK3 #### [address] #### VD25H #### [facility] [address] [place] [address] Eosinophils #/vol (Bld) 0.0 10*3/uL Normal 0.0-0.5 [facility] Comment on above: Performed By: #### H EMDF, PT, BMP3M, PHOS3, MG3, CK3 #### [facility] [address] [place], [place] #### VD25H #### [facility] [address] [place] [address] Eosinophils/100 WBC (Bld) 0.1 % Low 1.0-6.0 [facility] Comment on above: Performed By: #### H EMDF, PT, BMP3M, PHOS3, MG3, CK3 #### [address] #### VD25H #### [facility] [address] [place] [address] Erythrocyte distribution width Ratio (RBC) 13.8 % Normal 11.5-14.5 [facility] Comment on above: Performed By: #### H EMDF, PT, BMP3M, PHOS3, MG3, CK3 #### [address] #### VD25H #### [facility] [address] [place] [address] Granulocytes/100 WBC (Bld) 89.1 % High 40.0-80.0 [facility] Comment on above: Performed By: #### H EMDF, PT, BMP3M, PHOS3, MG3, CK3 #### [address] #### VD25H #### [facility] [address] [place] [address] Hematocrit Volume Fraction (Bld) 33.8 % Low 40.0-52.0 [facility] Comment on above: Performed By: #### H EMDF, PT, BMP3M, PHOS3, MG3, CK3 #### [address] #### VD25H #### [facility] [address] [place] [address] Hemoglobin mass conc (Bld) 11.5 g/dL Low 13.0-18.0 [facility] Comment on above: Performed By: #### H EMDF, PT, BMP3M, PHOS3, MG3, CK3 #### [address] [place], [place] #### VD25H #### [facility] [address] [place] [address] Lymphocytes #/vol (Bld) 0.6 10*3/uL Low 1.0-4.3 [facility] Comment on above: Performed By: #### H EMDF, PT, BMP3M, PHOS3, MG3, CK3 #### [address] #### VD25H #### [facility] [address] [place] [address] Lymphocytes/100 WBC (Bld) 4.5 % Low 20.0-40.0 [facility] Comment on above: Performed By: #### H EMDF, PT, BMP3M, PHOS3, MG3, CK3 #### [address] #### VD25H #### [facility] [address] [place] [address] MCH Entitic mass (RBC) 29.6 pg Normal 26.0-34.0 [facility] Comment on above: Performed By: #### H EMDF, PT, BMP3M, PHOS3, MG3, CK3 #### [address] [place], [place] #### VD25H #### [facility] [address] [place] [address] MCHC mass conc (RBC) 33.9 % Normal 32.0-36.0 [facility] Comment on above: Performed By: #### H EMDF, PT, BMP3M, PHOS3, MG3, CK3 #### [address] #### VD25H #### [facility] [address] [place] [address] MCV Entitic volume (RBC) 87.3 fL Normal 80.0-98.0 [facility] Comment on above: Performed By: #### H EMDF, PT, BMP3M, PHOS3, MG3, CK3 #### [address] #### VD25H #### [facility] [address] [place] [address] Monocytes #/vol (Bld) 0.8 10*3/uL Normal 0.0-0.8 [facility] Comment on above: Performed By: #### H EMDF, PT, BMP3M, PHOS3, MG3, CK3 #### [address] #### VD25H #### [facility] [address] [place] [address] Monocytes/100 WBC (Bld) 6.0 % Normal 2.0-10.0 [facility] Comment on above: Performed By: #### H EMDF, PT, BMP3M, PHOS3, MG3, CK3 #### [address] #### VD25H #### [facility] [address] [place] [address] Platelet mean volume Entitic volume (Bld) 8.1 fL Normal 7.4-10.4 [facility] Comment on above: Performed By: #### H EMDF, PT, BMP3M, PHOS3, MG3, CK3 #### [address] #### VD25H #### [facility] [address] [place] [address] Platelets #/vol (Bld) 196 10*3/uL Normal 140-440 [facility] Comment on above: Performed By: #### H EMDF, PT, BMP3M, PHOS3, MG3, CK3 #### [address] #### VD25H #### [facility] [address] [place] [address] RBC #/vol (Bld) 3.87 10*6/uL Low 4.40-5.90 [facility] Comment on above: Performed By: #### H EMDF, PT, BMP3M, PHOS3, MG3, CK3 #### [place] [address] [place], [place] #### VD25H #### [facility] [address] [place] [address] WBC #/vol (Bld) 13.2 10*3/uL High 3.6-10.7 [facility] Comment on above: Performed By: #### H EMDF, PT, BMP3M, PHOS3, MG3, CK3 #### [place] [address] [place], [place] #### VD25H #### [place] [address] [place] [address] Add on test from HISon 07-13 Add on test from HIS Rejected Normal [facility] Comment on above: Result Comment: No s pecimen available for addon. Performed By: #### H EMDF, PT, BMP3M, PHOS3, MG3, CK3 #### [place] [address] [place], [place] #### VD25H #### [facility] [address] [place] [address] Arterial Blood Gaseson 07-13 CO2 molar conc 25.6 mmol/L Normal 23.0-27.[address] [facility] Comment on above: Performed By: #### H EMDF, PT, BMP3M, PHOS3, MG3, CK3 #### [place] [address] [place], [place] #### VD25H #### [facility] [address] [place] [address] HCO3 molar conc (Bld) 24.5 mmol/L Normal 21.0-25.0 [facility] Comment on above: Performed By: #### H EMDF, PT, BMP3M, PHOS3, MG3, CK3 #### [facility] [address] [place], [place] #### VD25H #### [facility] [address] [place] [address] Hemoglobin mass conc (Bld) 9.7 g/dL Normal ScreenOnly [facility] Comment on above: Performed By: #### H EMDF, PT, BMP3M, PHOS3, MG3, CK3 #### [place] [address] [place], [place] #### VD25H #### [facility] [address] [place] [address] Oxygen ppres (Bld) 99.9 mm[Hg] Normal 80.0-100.0 [facility] Comment on above: Performed By: #### H EMDF, PT, BMP3M, PHOS3, MG3, CK3 #### [place] [address] [place], [place] #### VD25H #### [facility] [address] [place] [address] Oxygen saturation in Blood 97.5 % Normal 95.0-100.0 [facility] Comment on above: Performed By: #### H EMDF, PT, BMP3M, PHOS3, MG3, CK3 #### [place] [address] [place], [place] #### VD25H #### [facility] [address] [place] [address] pCO2 36.0 mm[Hg] Normal 35.0-45.0 [facility] Comment on above: Performed By: #### H EMDF, PT, BMP3M, PHOS3, MG3, CK3 #### [facility] [address] [facility], [place] #### VD25H #### [facility] [address] [place] [address] pH (Bld) 7.450 Normal 7.350-7.450 [facility] Comment on above: Performed By: #### H EMDF, PT, BMP3M, PHOS3, MG3, CK3 #### [place] [address] [place], [place] #### VD25H #### [facility] [address] [place] [address] Std Base Excess 0.6 mmol/L Normal -3.0-3.[address] [facility] Comment on above: Performed By: #### H EMDF, PT, BMP3M, PHOS3, MG3, CK3 #### [place] [address] [place], [place] #### VD25H #### [facility] [address] [place] [address] FIO2 .50 Normal [facility] Comment on above: Performed By: #### H EMDF, PT, BMP3M, PHOS3, MG3, CK3 #### [place] [address] [place], [place] #### VD25H #### [facility] [address] [place] [address] Basic Metabolic Panelon 06-29 Calcium mass conc 7.6 mg/dL Low 8.4-10.4 [facility] Comment on above: Performed By: #### H EMDF, PT, BMP3M, PHOS3, MG3, CK3 #### [address] #### VD25H #### [facility] [address] [place] [address] Glucose mass conc 120 mg/dL High 70-100 [facility] Comment on above: Performed By: #### H EMDF, PT, BMP3M, PHOS3, MG3, CK3 #### [place] [address] [facility], [place] #### VD25H #### [facility] [address] [place] [address] Anion gap molar conc 7 Normal [facility] Comment on above: Performed By: #### H EMDF, PT, BMP3M, PHOS3, MG3, CK3 #### [address] #### VD25H #### [facility] [address] [place] [address] CO2 molar conc 27 mmol/L Normal 22-30 [facility] Comment on above: Performed By: #### H EMDF, PT, BMP3M, PHOS3, MG3, CK3 #### [address] #### VD25H #### [place] [address] [place] [address] Creatinine mass conc 0.62 mg/dL Normal 0.52-1.25 [facility] Comment on above: Performed By: #### H EMDF, PT, BMP3M, PHOS3, MG3, CK3 #### [address] #### VD25H #### [place] [address] [place] [address] GFR/1.73 sq M predicted among blacks MDRD vol rate/area (S/P/Bld) mL/min/{1.73_m2} Normal >60 [facility] Comment on above: Performed By: #### H EMDF, PT, BMP3M, PHOS3, MG3, CK3 #### [address] #### VD25H #### [address] [place] [address] GFR/1.73 sq M predicted among non-blacks MDRD vol rate/area (S/P/Bld) mL/min/{1.73_m2} Normal >60 [facility] Comment on above: Result Comment: Sour ce- MDRD equation with creatinine calibration to IDMS(NKDEP) eGFR not recommended for drug dose adjustment Performed By: #### H EMDF, PT, BMP3M, PHOS3, MG3, CK3 #### [address] #### VD25H #### [facility] [address] [place] [address] Urea nitrogen mass conc 17 mg/dL Normal 7-20 [facility] Comment on above: Performed By: #### H EMDF, PT, BMP3M, PHOS3, MG3, CK3 #### [place] [address] [place], [place] #### VD25H #### [facility] [address] [place] [address] Chloride molar conc 105 mmol/L Normal 98-107 [facility] Comment on above: Performed By: #### H EMDF, PT, BMP3M, PHOS3, MG3, CK3 #### [place] [address] [place], [place] #### VD25H #### [place] [address] [place] [address] Potassium molar conc 3.8 mmol/L Normal 3.5-5.1 [facility] Comment on above: Performed By: #### H EMDF, PT, BMP3M, PHOS3, MG3, CK3 #### [place] [address] [facility], [place] #### VD25H #### [facility] [address] [place] [address] Sodium molar conc 139 mmol/L Normal 135-145 [facility] Comment on above: Performed By: #### H EMDF, PT, BMP3M, PHOS3, MG3, CK3 #### [place] [address] [place], [place] #### VD25H #### [place] [address] [place] [address] CR Chest Portableon 07-14-19 19 CR Chest Portable Patient Name: KATHYA HOOPER Diagnostic Radiology Exam Date/Time 07/13/2018 06:05:45 EDT Exam CR Chest Portable Ordering Physician MARIA EUGENIA PEREZ Accession Number [id number] CPT4 Codes 33072 () Reason For Exam ETT placement Report [...] Transcribed Date and Time: 07/13/2018 6:33 Normal [facility] Calcium,Ionizedon 07-13-2018 Ionized Ca,Measured 4.10 mg/dL Low 4.30-5.20 [facility] Comment on above: Performed By: #### H EMDF, PT, BMP3M, PHOS3, MG3, CK3 #### [address] #### VD25H #### [facility] [address] [facility] [place] [address] pH, Ionized Calcium 7.40 Normal 7.31-7.46 [facility] Comment on above: Performed By: #### H EMDF, PT, BMP3M, PHOS3, MG3, CK3 #### [address] #### VD25H #### [facility] [address] [place] [address] Hemogram w/ Autodiffon 07-13 Abs Baso Cnt 0.0 10*3/uL Normal 0.0-0.2 [facility] Comment on above: Performed By: #### H EMDF, PT, BMP3M, PHOS3, MG3, CK3 #### [address] [place], [place] #### VD25H #### [facility] [address] [place] [address] Abs Neutrophile Cnt 11.2 10*3/uL High 1.8-7.0 [facility] Comment on above: Performed By: #### H EMDF, PT, BMP3M, PHOS3, MG3, CK3 #### [place] [address] [place], [place] #### VD25H #### [facility] [address] [place] [address] Basophils/100 WBC (Bld) 0.3 % Normal 0.0-2.0 [facility] Comment on above: Performed By: #### H EMDF, PT, BMP3M, PHOS3, MG3, CK3 #### [address] #### VD25H #### [facility] [address] [place] [address] Eosinophils #/vol (Bld) 0.2 10*3/uL Normal 0.0-0.5 [facility] Comment on above: Performed By: #### H EMDF, PT, BMP3M, PHOS3, MG3, CK3 #### [address] #### VD25H #### [facility] [address] [place] [address] Eosinophils/100 WBC (Bld) 1.1 % Normal 1.0-6.0 [facility] Comment on above: Performed By: #### H EMDF, PT, BMP3M, PHOS3, MG3, CK3 #### [address] #### VD25H #### [facility] [address] [place] [address] Erythrocyte distribution width Ratio (RBC) 13.9 % Normal 11.5-14.5 [facility] Comment on above: Performed By: #### H EMDF, PT, BMP3M, PHOS3, MG3, CK3 #### [facility] [address] [place], [place] #### VD25H #### [facility] [address] [place] [address] Granulocytes/100 WBC (Bld) 82.2 % High 40.0-80.0 [facility] Comment on above: Performed By: #### H EMDF, PT, BMP3M, PHOS3, MG3, CK3 #### [address] #### VD25H #### [facility] [address] [place] [address] Hematocrit Volume Fraction (Bld) 36.7 % Low 40.0-52.0 [facility] Comment on above: Performed By: #### H EMDF, PT, BMP3M, PHOS3, MG3, CK3 #### [address] #### VD25H #### [facility] [address] [place] [address] Hemoglobin mass conc (Bld) 12.6 g/dL Low 13.0-18.0 [facility] Comment on above: Performed By: #### H EMDF, PT, BMP3M, PHOS3, MG3, CK3 #### [address] [place] [address] [place], [place] #### VD25H #### [facility] [address] [place] [address] Lymphocytes #/vol (Bld) 1.1 10*3/uL Normal 1.0-4.3 [facility] Comment on above: Performed By: #### H EMDF, PT, BMP3M, PHOS3, MG3, CK3 #### [address] #### VD25H #### [facility] [address] [place] [address] Lymphocytes/100 WBC (Bld) 8.2 % Low 20.0-40.0 [facility] Comment on above: Performed By: #### H EMDF, PT, BMP3M, PHOS3, MG3, CK3 #### [place] [address] [place], [place] #### VD25H #### [facility] [address] [place] [address] MCH Entitic mass (RBC) 29.6 pg Normal 26.0-34.0 [facility] Comment on above: Performed By: #### H EMDF, PT, BMP3M, PHOS3, MG3, CK3 #### [address] #### VD25H #### [place] [address] [place] [address] MCHC mass conc (RBC) 34.4 % Normal 32.0-36.0 [facility] Comment on above: Performed By: #### H EMDF, PT, BMP3M, PHOS3, MG3, CK3 #### [address] #### VD25H #### [facility] [address] [place] [address] MCV Entitic volume (RBC) 86.2 fL Normal 80.0-98.0 [facility] Comment on above: Performed By: #### H EMDF, PT, BMP3M, PHOS3, MG3, CK3 #### [address] [place], [place] #### [id number] #### [facility] [address] [place] [address] Monocytes #/vol (Bld) 1.1 10*3/uL High 0.0-0.8 [facility] Comment on above: Performed By: #### H EMDF, PT, BMP3M, PHOS3, MG3, CK3 #### [address] #### [id number] #### [facility] [address] [place] [address] Monocytes/100 WBC (Bld) 8.2 % Normal 2.0-10.0 [facility] Comment on above: Performed By: #### H EMDF, PT, BMP3M, PHOS3, MG3, CK3 #### [address] #### VD25H #### [facility] [address] [place] [address] Platelet mean volume Entitic volume (Bld) 8.1 fL Normal 7.4-10.4 [facility] Comment on above: Performed By: #### H EMDF, PT, BMP3M, PHOS3, MG3, CK3 #### [address] #### VD25H #### [place] [address] [place] [address] Platelets #/vol (Bld) 194 10*3/uL Normal 140-440 [facility] Comment on above: Performed By: #### H EMDF, PT, BMP3M, PHOS3, MG3, CK3 #### [address] #### VD25H #### [place] [address] [place] [address] RBC #/vol (Bld) 4.26 10*6/uL Low 4.40-5.90 [facility] Comment on above: Performed By: #### H EMDF, PT, BMP3M, PHOS3, MG3, CK3 #### [address] #### VD25H #### [facility] [address] [place] [address] WBC #/vol (Bld) 13.7 10*3/uL High 3.6-10.7 [facility] Comment on above: Performed By: #### H EMDF, PT, BMP3M, PHOS3, MG3, CK3 #### [address] #### VD25H #### [facility] [address] [place] [address] Arterial Blood Gaseson 07-12 CO2 molar conc 26.4 mmol/L Normal 23.0-27.0 [facility] Comment on above: Performed By: #### H EMDF, PT, BMP3M, PHOS3, MG3, CK3 #### [address] #### VD25H #### [facility] [address] [place] [address] HCO3 molar conc (Bld) 25.2 mmol/L High 21.0-25.0 [facility] Comment on above: Performed By: #### H EMDF, PT, BMP3M, PHOS3, MG3, CK3 #### [address] #### VD25H #### [place] [address] [place] [address] Hemoglobin mass conc (Bld) 13.9 g/dL Normal ScreenOnly [facility] Comment on above: Performed By: #### H EMDF, PT, BMP3M, PHOS3, MG3, CK3 #### [address] #### VD25H #### [place] [address] [place] [address] Oxygen ppres (Bld) 83.9 mm[Hg] Normal 80.0-100.0 [facility] Comment on above: Performed By: #### H EMDF, PT, BMP3M, PHOS3, MG3, CK3 #### [address] #### VD25H #### [place] [address] [place] [address] Oxygen saturation in Blood 96.3 % Normal 95.0-100.0 [facility] Comment on above: Performed By: #### H EMDF, PT, BMP3M, PHOS3, MG3, CK3 #### [address] [place], [place] #### VD25H #### [facility] [address] [place] [address] pCO2 38.2 mm[Hg] Normal 35.0-45.0 [facility] Comment on above: Performed By: #### H EMDF, PT, BMP3M, PHOS3, MG3, CK3 #### [place] [address] [place], [place] #### VD25H #### [facility] [address] [place] [address] pH (Bld) 7.437 Normal 7.350-7.450 [facility] Comment on above: Performed By: #### H EMDF, PT, BMP3M, PHOS3, MG3, CK3 #### [address] #### VD25H #### [facility] [address] [place] [address] Std Base Excess 1.1 mmol/L Normal -3.0-3.[address] [facility] Comment on above: Performed By: #### H EMDF, PT, BMP3M, PHOS3, MG3, CK3 #### [address] #### VD25H #### [facility] [address] [place] [address] FIO2 50% Normal [facility] Comment on above: Performed By: #### H EMDF, PT, BMP3M, PHOS3, MG3, CK3 #### [address] #### VD25H #### [facility] [address] [place] [address] CO2 molar conc 27.2 mmol/L High 23.0-27.[address] [facility] Comment on above: Performed By: #### H EMDF, PT, BMP3M, PHOS3, MG3, CK3 #### [address] [place], [place] #### VD25H #### [facility] [address] [place] [address] HCO3 molar conc (Bld) 26.1 mmol/L High 21.0-25.0 [facility] Comment on above: Performed By: #### H EMDF, PT, BMP3M, PHOS3, MG3, CK3 #### [place] [address] [place], [place] #### VD25H #### [facility] [address] [place] [address] Hemoglobin mass conc (Bld) 14.7 g/dL Normal ScreenOnly [facility] Comment on above: Performed By: #### H EMDF, PT, BMP3M, PHOS3, MG3, CK3 #### [address] #### VD25H #### [place] [address] [place] [address] Oxygen ppres (Bld) 125.7 mm[Hg] High 80.0-100.0 [facility] Comment on above: Performed By: #### H EMDF, PT, BMP3M, PHOS3, MG3, CK3 #### [address] [place], [place] #### VD25H #### [place] [address] [place] [address] Oxygen saturation in Blood 98.6 % Normal 95.0-100.0 [facility] Comment on above: Performed By: #### H EMDF, PT, BMP3M, PHOS3, MG3, CK3 #### [address] [place], [place] #### VD25H #### [facility] [address] [place] [address] pCO2 37.5 mm[Hg] Normal 35.0-45.0 [facility] Comment on above: Performed By: #### H EMDF, PT, BMP3M, PHOS3, MG3, CK3 #### [place] [address] [place], [place] #### VD25H #### [facility] [address] [place] [address] pH (Bld) 7.460 High 7.350-7.450 [facility] Comment on above: Performed By: #### H EMDF, PT, BMP3M, PHOS3, MG3, CK3 #### [place] [address] [address] [facility], [place] #### VD25H #### [facility] [address] [place] [address] Std Base Excess 2.4 mmol/L Normal -3.0-3.[address] [facility] Comment on above: Performed By: #### H EMDF, PT, BMP3M, PHOS3, MG3, CK3 #### [address] [place], [place] #### VD25H #### [facility] [address] [place] [address] FIO2 62.5 Normal [facility] Comment on above: Performed By: #### H EMDF, PT, BMP3M, PHOS3, MG3, CK3 #### [place] [address] [place], [place] #### VD25H #### [facility] [address] [place] [address] Basic Metabolic Panelon - Anion gap molar conc 6 Normal [facility] Comment on above: Performed By: #### H EMDF, PT, BMP3M, PHOS3, MG3, CK3 #### [place] [address] [place], [place] #### VD25H #### [facility] [address] [place] [address] Calcium mass conc 8.0 mg/dL Low 8.4-10.4 [facility] Comment on above: Performed By: #### H EMDF, PT, BMP3M, PHOS3, MG3, CK3 #### [place] [address] [place], [place] #### VD25H #### [facility] [address] [place] [address] CO2 molar conc 28 mmol/L Normal 22-30 [facility] Comment on above: Performed By: #### H EMDF, PT, BMP3M, PHOS3, MG3, CK3 #### [address] #### VD25H #### [facility] [address] [place] [address] Creatinine mass conc 0.62 mg/dL Normal 0.52-1.25 [facility] Comment on above: Performed By: #### H EMDF, PT, BMP3M, PHOS3, MG3, CK3 #### [address] #### VD25H #### [facility] [address] [place] [address] GFR/1.73 sq M predicted among blacks MDRD vol rate/area (S/P/Bld) mL/min/{1.73_m2} Normal >60 [facility] Comment on above: Performed By: #### H EMDF, PT, BMP3M, PHOS3, MG3, CK3 #### [address] #### VD25H #### [facility] [address] [place] [address] GFR/1.73 sq M predicted among non-blacks MDRD vol rate/area (S/P/Bld) mL/min/{1.73_m2} Normal >60 [facility] Comment on above: Result Comment: Sour ce- MDRD equation with creatinine calibration to IDMS(NKDEP) eGFR not recommended for drug dose adjustment Performed By: #### H EMDF, PT, BMP3M, PHOS3, MG3, CK3 #### [address] #### VD25H #### [facility] [address] [place] [address] Glucose mass conc 125 mg/dL High 70-100 [facility] Comment on above: Performed By: #### H EMDF, PT, BMP3M, PHOS3, MG3, CK3 #### [facility] [address] [place], [place] #### VD25H #### [facility] [address] [place] [address] Urea nitrogen mass conc 12 mg/dL Normal 7-20 [facility] Comment on above: Performed By: #### H EMDF, PT, BMP3M, PHOS3, MG3, CK3 #### [place] [address] [place] #### VD25H #### [facility] [address] [place] [address] Chloride molar conc 104 mmol/L Normal 98-107 [facility] Comment on above: Performed By: #### H EMDF, PT, BMP3M, PHOS3, MG3, CK3 #### [place] [address] [place] #### VD25H #### [facility] [address] [place] [address] Potassium molar conc 3.6 mmol/L Normal 3.5-5.1 [facility] Comment on above: Performed By: #### H EMDF, PT, BMP3M, PHOS3, MG3, CK3 #### [place] [address] [place], [place] #### VD25H #### [facility] [address] [place] [address] Sodium molar conc 138 mmol/L Normal 135-145 [facility] Comment on above: Performed By: #### H EMDF, PT, BMP3M, PHOS3, MG3, CK3 #### [place] [address] [place], [place] #### VD25H #### [facility] [address] [place] [address] CR Chest Portableon 07-13-19 19 CR Chest Portable Patient Name: KATHYA HOOPER Diagnostic Radiology Exam Date/Time 07/12/2018 10:18:11 EDT Exam CR Chest Portable Ordering Physician BROOKSMARIA EUGENIA PHILLIPS Accession Number [id number] CPT4 Codes 95330 () Reason For Exam ETT Placement Report [...] Transcribed Date and Time: 07/12/2018 1:21 Normal [facility] CR Chest Portable Patient Name: KATHYA HOOPER Diagnostic Radiology Exam Date/Time 07/12/2018 06:19:03 EDT Exam CR Chest Portable Ordering Physician MD NATE, NICOLE HOLLEY Accession Number [id number] CPT4 Codes 41734 () Reason For Exam dyspnea Report PORTABLE [...] Transcribed Date and Time: 07/12/2018 8:01 Normal [facility] Hemogram w/ Autodiffon 07-12 Abs Baso Cnt 0.0 10*3/uL Normal 0.0-0.2 [facility] Comment on above: Performed By: #### H EMDF, PT, BMP3M, PHOS3, MG3, CK3 #### [facility] [address] [place], [place] #### VD25H #### [facility] [address] [place] [address] Abs Neutrophile Cnt 10.2 10*3/uL High 1.8-7.0 [facility] Comment on above: Performed By: #### H EMDF, PT, BMP3M, PHOS3, MG3, CK3 #### [facility] [address] [place], [place] #### VD25H #### [facility] [address] [place] [address] Basophils/100 WBC (Bld) 0.4 % Normal 0.0-2.0 [facility] Comment on above: Performed By: #### H EMDF, PT, BMP3M, PHOS3, MG3, CK3 #### [facility] [address] [place], [place] #### VD25H #### [facility] [address] [place] [address] Eosinophils #/vol (Bld) 0.1 10*3/uL Normal 0.0-0.5 [facility] Comment on above: Performed By: #### H EMDF, PT, BMP3M, PHOS3, MG3, CK3 #### [address] #### VD25H #### [facility] [address] [place] [address] Eosinophils/100 WBC (Bld) 0.6 % Low 1.0-6.0 [facility] Comment on above: Performed By: #### H EMDF, PT, BMP3M, PHOS3, MG3, CK3 #### [address] #### VD25H #### [facility] [address] [place] [address] Erythrocyte distribution width Ratio (RBC) 13.5 % Normal 11.5-14.5 [facility] Comment on above: Performed By: #### H EMDF, PT, BMP3M, PHOS3, MG3, CK3 #### [address] #### VD25H #### [facility] [address] [place] [address] Granulocytes/100 WBC (Bld) 84.7 % High 40.0-80.0 [facility] Comment on above: Performed By: #### H EMDF, PT, BMP3M, PHOS3, MG3, CK3 #### [address] #### VD25H #### [facility] [address] [place] [address] Hematocrit Volume Fraction (Bld) 39.7 % Low 40.0-52.0 [facility] Comment on above: Performed By: #### H EMDF, PT, BMP3M, PHOS3, MG3, CK3 #### [address] #### VD25H #### [facility] [address] [place] [address] Hemoglobin mass conc (Bld) 13.5 g/dL Normal 13.0-18.0 [facility] Comment on above: Performed By: #### H EMDF, PT, BMP3M, PHOS3, MG3, CK3 #### [address] #### VD25H #### [facility] [address] [place] [address] Lymphocytes #/vol (Bld) 0.9 10*3/uL Low 1.0-4.3 [facility] Comment on above: Performed By: #### H EMDF, PT, BMP3M, PHOS3, MG3, CK3 #### [address] #### VD25H #### [facility] [address] [place] [address] Lymphocytes/100 WBC (Bld) 7.6 % Low 20.0-40.0 [facility] Comment on above: Performed By: #### H EMDF, PT, BMP3M, PHOS3, MG3, CK3 #### [address] #### VD25H #### [facility] [address] [place] [address] MCH Entitic mass (RBC) 29.6 pg Normal 26.0-34.0 [facility] Comment on above: Performed By: #### H EMDF, PT, BMP3M, PHOS3, MG3, CK3 #### [address] #### VD25H #### [facility] [address] [place] [address] MCHC mass conc (RBC) 34.1 % Normal 32.0-36.0 [facility] Comment on above: Performed By: #### H EMDF, PT, BMP3M, PHOS3, MG3, CK3 #### [address] [place], [place] #### VD25H #### [facility] [address] [place] [address] MCV Entitic volume (RBC) 87.0 fL Normal 80.0-98.0 [facility] Comment on above: Performed By: #### H EMDF, PT, BMP3M, PHOS3, MG3, CK3 #### [address] #### VD25H #### [facility] [address] [place] [address] Monocytes #/vol (Bld) 0.8 10*3/uL Normal 0.0-0.8 [facility] Comment on above: Performed By: #### H EMDF, PT, BMP3M, PHOS3, MG3, CK3 #### [address] #### VD25H #### [facility] [address] [place] [address] Monocytes/100 WBC (Bld) 6.7 % Normal 2.0-10.0 [facility] Comment on above: Performed By: #### H EMDF, PT, BMP3M, PHOS3, MG3, CK3 #### [address] #### VD25H #### [facility] [address] [place] [address] Platelet mean volume Entitic volume (Bld) 8.4 fL Normal 7.4-10.4 [facility] Comment on above: Performed By: #### H EMDF, PT, BMP3M, PHOS3, MG3, CK3 #### [address] #### VD25H #### [facility] [address] [place] [address] Platelets #/vol (Bld) 185 10*3/uL Normal 140-440 [facility] Comment on above: Performed By: #### H EMDF, PT, BMP3M, PHOS3, MG3, CK3 #### [facility] [address] [place], [place] #### VD25H #### [facility] [address] [place] [address] RBC #/vol (Bld) 4.57 10*6/uL Normal 4.40-5.90 [facility] Comment on above: Performed By: #### H EMDF, PT, BMP3M, PHOS3, MG3, CK3 #### [facility] [address] [place], [place] #### VD25H #### [facility] [address] [place] [address] WBC #/vol (Bld) 12.1 10*3/uL High 3.6-10.7 [facility] Comment on above: Performed By: #### H EMDF, PT, BMP3M, PHOS3, MG3, CK3 #### [facility] [address] [place], [place] #### VD25H #### [facility] [address] [place] [address] VL Venous Duplex US Lower Ex t Bilateralon 07-12-2018 VL Venous Duplex US Lower Ext Bilateral Patient Name: KATHYA HOOPER Ultrasound Exam Date/Time 07/12/2018 17:20:46 EDT Exam VL Venous Duplex US Lower Ext Bilateral Ordering Physician MD AVELAR ADAM Accession Number [id number] CPT4 Codes 49592 () Reason For Exam leg swelling Report [facility] --- Lower Extremity Venous Duplex Report Patient Name: Kathya Hooper : 1955 Study Date: 07/12/2018 W (63yrs) Age: 63 Account: [id number] Gender: M Loc: T209 BP: Ordering: Joshua Avelar Technologist: Ordering Physician: Joshua Avelar Ankle Patch Molder: Elizabeth Sanford RVT Interpreting Physician: Krysta Arora --- Location: [facility] --- INDICATIONS: Edema. bilateral [...] performed. The images were obtained using a Yelago E9 vascular ultrasound machine. --- VENOUS FLOW [...] ---------+-------+--- --+ Electronically signed by: Krysta Arora [id number]:[id number] Final Dictated: 07/13/2018 8:45 am Dictating Physician: KRYSTA ARORA Signed Date and Time: 07/13/2018 8:45 am Signed by: KRYSTA ARORA Normal [facility] Basic Metabolic Panelon 06-29 Calcium mass conc 7.8 mg/dL Low 8.4-10.4 [facility] Comment on above: Performed By: #### H EMDF, PT, BMP3M, PHOS3, MG3, CK3 #### [address] #### VD25H #### [facility] [address] [place] [address] Anion gap molar conc 4 Normal [facility] Comment on above: Performed By: #### H EMDF, PT, BMP3M, PHOS3, MG3, CK3 #### [facility] [address] [place], [place] #### VD25H #### [facility] [address] [place] [address] CO2 molar conc 26 mmol/L Normal 22-30 [facility] Comment on above: Performed By: #### H EMDF, PT, BMP3M, PHOS3, MG3, CK3 #### [facility] [address] [place], [place] #### VD25H #### [facility] [address] [place] [address] Glucose mass conc 118 mg/dL High 70-100 [facility] Comment on above: Performed By: #### H EMDF, PT, BMP3M, PHOS3, MG3, CK3 #### [address] [phone] #### VD25H #### [facility] [address] [place] [address] Urea nitrogen mass conc 19 mg/dL Normal 7-20 [facility] Comment on above: Performed By: #### H EMDF, PT, BMP3M, PHOS3, MG3, CK3 #### [address] [phone] #### VD25H #### [facility] [address] [place] [address] Creatinine mass conc 0.74 mg/dL Normal 0.52-1.25 [facility] Comment on above: Performed By: #### H EMDF, PT, BMP3M, PHOS3, MG3, CK3 #### [address] #### VD25H #### [place] [address] [place] [address] GFR/1.73 sq M predicted among blacks MDRD vol rate/area (S/P/Bld) mL/min/{1.73_m2} Normal >60 [facility] Comment on above: Performed By: #### H EMDF, PT, BMP3M, PHOS3, MG3, CK3 #### [address] [phone] #### VD25H #### [facility] [address] [place] [address] GFR/1.73 sq M predicted among non-blacks MDRD vol rate/area (S/P/Bld) mL/min/{1.73_m2} Normal >60 [facility] Comment on above: Result Comment: Sour ce- MDRD equation with creatinine calibration to IDMS(NKDEP) eGFR not recommended for drug dose adjustment Performed By: #### H EMDF, PT, BMP3M, PHOS3, MG3, CK3 #### [address] #### VD25H #### [facility] [address] [place] [address] Chloride molar conc 112 mmol/L High 98-107 [facility] Comment on above: Performed By: #### H EMDF, PT, BMP3M, PHOS3, MG3, CK3 #### [facility] [address] [place], [place] #### VD25H #### [facility] [address] [place] [address] Potassium molar conc 3.8 mmol/L Normal 3.5-5.1 [facility] Comment on above: Performed By: #### H EMDF, PT, BMP3M, PHOS3, MG3, CK3 #### [facility] [address] [place], [place] #### VD25H #### [facility] [address] [place] [address] Sodium molar conc 141 mmol/L Normal 135-145 [facility] Comment on above: Performed By: #### H EMDF, PT, BMP3M, PHOS3, MG3, CK3 #### [facility] [address] [place], [place] #### VD25H #### [facility] [address] [place] [address] CR Chest 1 View Frontalon CR Chest 1 View Frontal Patient Name: KATHYA FELDER Diagnostic Radiology Exam Date/Time 07/11/2018 06:36:48 EDT Exam CR Chest 1 View Frontal Ordering Physician MD MOISÉS, JOSHUA Accession Number [id number] CPT4 Codes 45641 () Reason For Exam dyspnea Report EXAM [...] Transcribed Date and Time: 07/11/2018 7:05 Normal [facility] Hemogram w/ Autodiffon 07-11 Abs Baso Cnt 0.0 10*3/uL Normal 0.0-0.2 [facility] Comment on above: Performed By: #### H EMDF, PT, BMP3M, PHOS3, MG3, CK3 #### [address] #### VD25H #### [facility] [address] [place] [address] Abs Neutrophile Cnt 8.8 10*3/uL High 1.8-7.0 [facility] Comment on above: Performed By: #### H EMDF, PT, BMP3M, PHOS3, MG3, CK3 #### [facility] [address] [place], [place] #### VD25H #### [facility] [address] [place] [address] Basophils/100 WBC (Bld) 0.4 % Normal 0.0-2.0 [facility] Comment on above: Performed By: #### H EMDF, PT, BMP3M, PHOS3, MG3, CK3 #### [place] [address] [place], [place] #### VD25H #### [facility] [address] [place] [address] Eosinophils #/vol (Bld) 0.0 10*3/uL Normal 0.0-0.5 [facility] Comment on above: Performed By: #### H EMDF, PT, BMP3M, PHOS3, MG3, CK3 #### [address] #### VD25H #### [facility] [address] [place] [address] Eosinophils/100 WBC (Bld) 0.4 % Low 1.0-6.0 [facility] Comment on above: Performed By: #### H EMDF, PT, BMP3M, PHOS3, MG3, CK3 #### [address] #### VD25H #### [place] [address] [place] [address] Erythrocyte distribution width Ratio (RBC) 13.7 % Normal 11.5-14.5 [facility] Comment on above: Performed By: #### H EMDF, PT, BMP3M, PHOS3, MG3, CK3 #### [address] #### VD25H #### [facility] [address] [place] [address] Granulocytes/100 WBC (Bld) 80.6 % High 40.0-80.0 [facility] Comment on above: Performed By: #### H EMDF, PT, BMP3M, PHOS3, MG3, CK3 #### [address] #### VD25H #### [facility] [address] [place] [address] Hematocrit Volume Fraction (Bld) 32.8 % Low 40.0-52.0 [facility] Comment on above: Performed By: #### H EMDF, PT, BMP3M, PHOS3, MG3, CK3 #### [address] #### VD25H #### [place] [address] [place] [address] Hemoglobin mass conc (Bld) 11.4 g/dL Low 13.0-18.0 [facility] Comment on above: Performed By: #### H EMDF, PT, BMP3M, PHOS3, MG3, CK3 #### [place] [address] [place], [place] #### VD25H #### [facility] [address] [place] [address] Lymphocytes #/vol (Bld) 1.3 10*3/uL Normal 1.0-4.3 [facility] Comment on above: Performed By: #### H EMDF, PT, BMP3M, PHOS3, MG3, CK3 #### [address] #### VD25H #### [place] [address] [place] [address] Lymphocytes/100 WBC (Bld) 11.5 % Low 20.0-40.0 [facility] Comment on above: Performed By: #### H EMDF, PT, BMP3M, PHOS3, MG3, CK3 #### [address] #### VD25H #### [place] [address] [place] [address] MCH Entitic mass (RBC) 30.2 pg Normal 26.0-34.0 [facility] Comment on above: Performed By: #### H EMDF, PT, BMP3M, PHOS3, MG3, CK3 #### [address] #### VD25H #### [place] [address] [place] [address] MCHC mass conc (RBC) 34.7 % Normal 32.0-36.0 [facility] Comment on above: Performed By: #### H EMDF, PT, BMP3M, PHOS3, MG3, CK3 #### [address] #### VD25H #### [facility] [address] [place] [address] MCV Entitic volume (RBC) 86.9 fL Normal 80.0-98.0 [facility] Comment on above: Performed By: #### H EMDF, PT, BMP3M, PHOS3, MG3, CK3 #### [address] #### VD25H #### [facility] [address] [place] [address] Monocytes #/vol (Bld) 0.8 10*3/uL Normal 0.0-0.8 [facility] Comment on above: Performed By: #### H EMDF, PT, BMP3M, PHOS3, MG3, CK3 #### [address] #### VD25H #### [facility] [address] [place] [address] Monocytes/100 WBC (Bld) 7.1 % Normal 2.0-10.0 [facility] Comment on above: Performed By: #### H EMDF, PT, BMP3M, PHOS3, MG3, CK3 #### [address] #### VD25H #### [facility] [address] [place] [address] Platelet mean volume Entitic volume (Bld) 8.8 fL Normal 7.4-10.4 [facility] Comment on above: Performed By: #### H EMDF, PT, BMP3M, PHOS3, MG3, CK3 #### [address] #### VD25H #### [facility] [address] [place] [address] Platelets #/vol (Bld) 158 10*3/uL Normal 140-440 [facility] Comment on above: Performed By: #### H EMDF, PT, BMP3M, PHOS3, MG3, CK3 #### [facility] [address] [place], [place] #### VD25H #### [facility] [address] [place] [address] RBC #/vol (Bld) 3.78 10*6/uL Low 4.40-5.90 [facility] Comment on above: Performed By: #### H EMDF, PT, BMP3M, PHOS3, MG3, CK3 #### [address] [place], [place] #### VD25H #### [facility] [address] [place] [address] WBC #/vol (Bld) 10.9 10*3/uL High 3.6-10.7 [facility] Comment on above: Performed By: #### H EMDF, PT, BMP3M, PHOS3, MG3, CK3 #### [address] #### VD25H #### [place] [address] [place] [address] Magnesiumon 07-11-2018 Magnesium mass conc 2.3 mg/dL Normal 1.6-2.3 [facility] Comment on above: Performed By: #### H EMDF, PT, BMP3M, PHOS3, MG3, CK3 #### [address] #### VD25H #### [facility] [address] [place] [address] Phosphoruson 07-11-2018 Phosphate mass conc 2.8 mg/dL Normal 2.5-4.5 [facility] Comment on above: Performed By: #### H EMDF, PT, BMP3M, PHOS3, MG3, CK3 #### [address] #### VD25H #### [place] [address] [place] [address] Basic Metabolic Panelon 06-29 Calcium mass conc 8.9 mg/dL Normal 8.4-10.4 [facility] Comment on above: Performed By: #### H EMDF, PT, BMP3M, PHOS3, MG3, CK3 #### [facility] [address] [place], [place] #### VD25H #### [facility] [address] [place] [address] Glucose mass conc 133 mg/dL High 70-100 [facility] Comment on above: Performed By: #### H EMDF, PT, BMP3M, PHOS3, MG3, CK3 #### [place] [address] [place], [place] #### VD25H #### [facility] [address] [place] [address] Anion gap molar conc 4 Normal [facility] Comment on above: Performed By: #### H EMDF, PT, BMP3M, PHOS3, MG3, CK3 #### [place] [address] [place], [place] #### VD25H #### [facility] [address] [place] [address] CO2 molar conc 27 mmol/L Normal 22-30 [facility] Comment on above: Performed By: #### H EMDF, PT, BMP3M, PHOS3, MG3, CK3 #### [place] [address] [place], [place] #### VD25H #### [facility] [address] [place] [address] Creatinine mass conc 0.69 mg/dL Normal 0.52-1.25 [facility] Comment on above: Performed By: #### H EMDF, PT, BMP3M, PHOS3, MG3, CK3 #### [place] [address] [facility], [place] #### VD25H #### [facility] [address] [place] [address] GFR/1.73 sq M predicted among blacks MDRD vol rate/area (S/P/Bld) mL/min/{1.73_m2} Normal >60 [facility] Comment on above: Performed By: #### H EMDF, PT, BMP3M, PHOS3, MG3, CK3 #### [place] [address] [place] [address] #### VD25H #### [facility] [address] [place] [address] GFR/1.73 sq M predicted among non-blacks MDRD vol rate/area (S/P/Bld) mL/min/{1.73_m2} Normal >60 [facility] Comment on above: Result Comment: Sour ce- MDRD equation with creatinine calibration to IDMS(NKDEP) eGFR not recommended for drug dose adjustment Performed By: #### H EMDF, PT, BMP3M, PHOS3, MG3, CK3 #### [place] [address] [place] #### VD25H #### [facility] [address] [place] [address] Urea nitrogen mass conc 16 mg/dL Normal 7-20 [facility] Comment on above: Performed By: #### H EMDF, PT, BMP3M, PHOS3, MG3, CK3 #### [place] [address] [place] [address] #### VD25H #### [facility] [address] [place] [address] Potassium molar conc 4.1 mmol/L Normal 3.5-5.1 [facility] Comment on above: Performed By: #### H EMDF, PT, BMP3M, PHOS3, MG3, CK3 #### [place] [address] [place] [address] #### VD25H #### [facility] [address] [place] [address] Sodium molar conc 142 mmol/L Normal 135-145 [facility] Comment on above: Performed By: #### H EMDF, PT, BMP3M, PHOS3, MG3, CK3 #### [place] [address] [place] [address] #### VD25H #### [facility] [address] [place] [address] Chloride molar conc 110 mmol/L High 98-107 [facility] Comment on above: Performed By: #### H EMDF, PT, BMP3M, PHOS3, MG3, CK3 #### [facility] [address] [place], [place] #### VD25H #### [facility] [address] [place] [address] CKon 07-10-2018 CK enzyme act/vol 1291 U/L High 30-170 [facility] Comment on above: Performed By: #### H EMDF, PT, BMP3M, PHOS3, MG3, CK3 #### [facility] [address] [place], [place] #### VD25H #### [facility] [address] [place] [address] CK enzyme act/vol 1382 U/L High 30-170 [facility] Comment on above: Performed By: #### H EMDF, PT, BMP3M, PHOS3, MG3, CK3 #### [facility] [address] [place], [place] #### VD25H #### [facility] [address] [place] [address] CR Chest 1 View Frontalon CR Chest 1 View Frontal Patient Name: KATHYA FELDER Diagnostic Radiology Exam Date/Time 07/10/2018 06:38:06 EDT Exam CR Chest 1 View Frontal Ordering Physician MD NATE, NICOLE HOLLEY Accession Number [id number] CPT4 Codes 63012 () Reason For Exam dyspnea Report EXAMINATION: [...] Transcribed Date and Time: 07/10/2018 8:57 Normal [facility] Hemogram w/ Autodiffon 07-10 Abs Baso Cnt 0.0 10*3/uL Normal 0.0-0.2 [facility] Comment on above: Performed By: #### H EMDF, PT, BMP3M, PHOS3, MG3, CK3 #### [facility] [address] [place], [place] #### VD25H #### [facility] [address] [place] [address] Abs Neutrophile Cnt 12.2 10*3/uL High 1.8-7.0 [facility] Comment on above: Performed By: #### H EMDF, PT, BMP3M, PHOS3, MG3, CK3 #### [facility] [address] [place], [place] #### VD25H #### [facility] [address] [place] [address] Basophils/100 WBC (Bld) 0.3 % Normal 0.0-2.0 [facility] Comment on above: Performed By: #### H EMDF, PT, BMP3M, PHOS3, MG3, CK3 #### [facility] [address] [place], [place] #### VD25H #### [facility] [address] [place] [address] Eosinophils #/vol (Bld) 0.0 10*3/uL Normal 0.0-0.5 [facility] Comment on above: Performed By: #### H EMDF, PT, BMP3M, PHOS3, MG3, CK3 #### [address] #### VD25H #### [facility] [address] [place] [address] Eosinophils/100 WBC (Bld) 0.0 % Low 1.0-6.0 [facility] Comment on above: Performed By: #### H EMDF, PT, BMP3M, PHOS3, MG3, CK3 #### [address] #### VD25H #### [facility] [address] [place] [address] Erythrocyte distribution width Ratio (RBC) 13.9 % Normal 11.5-14.5 [facility] Comment on above: Performed By: #### H EMDF, PT, BMP3M, PHOS3, MG3, CK3 #### [address] #### VD25H #### [facility] [address] [place] [address] Granulocytes/100 WBC (Bld) 89.5 % High 40.0-80.0 [facility] Comment on above: Performed By: #### H EMDF, PT, BMP3M, PHOS3, MG3, CK3 #### [address] #### VD25H #### [facility] [address] [place] [address] Hematocrit Volume Fraction (Bld) 36.0 % Low 40.0-52.0 [facility] Comment on above: Performed By: #### H EMDF, PT, BMP3M, PHOS3, MG3, CK3 #### [address] #### VD25H #### [facility] [address] [place] [address] Hemoglobin mass conc (Bld) 12.3 g/dL Low 13.0-18.0 [facility] Comment on above: Performed By: #### H EMDF, PT, BMP3M, PHOS3, MG3, CK3 #### [place] [address] [place], [place] #### VD25H #### [facility] [address] [place] [address] Lymphocytes #/vol (Bld) 0.6 10*3/uL Low 1.0-4.3 [facility] Comment on above: Performed By: #### H EMDF, PT, BMP3M, PHOS3, MG3, CK3 #### [place] [address] [place], [place] #### VD25H #### [facility] [address] [place] [address] Lymphocytes/100 WBC (Bld) 4.3 % Low 20.0-40.0 [facility] Comment on above: Performed By: #### H EMDF, PT, BMP3M, PHOS3, MG3, CK3 #### [place] [address] [place], [place] #### VD25H #### [facility] [address] [place] [address] MCH Entitic mass (RBC) 29.8 pg Normal 26.0-34.0 [facility] Comment on above: Performed By: #### H EMDF, PT, BMP3M, PHOS3, MG3, CK3 #### [place] [address] [place], [place] #### VD25H #### [facility] [address] [place] [address] MCHC mass conc (RBC) 34.2 % Normal 32.0-36.0 [facility] Comment on above: Performed By: #### H EMDF, PT, BMP3M, PHOS3, MG3, CK3 #### [facility] [address] [place], [place] #### VD25H #### [facility] [address] [place] [address] MCV Entitic volume (RBC) 87.1 fL Normal 80.0-98.0 [facility] Comment on above: Performed By: #### H EMDF, PT, BMP3M, PHOS3, MG3, CK3 #### [facility] [address] [place], [place] #### VD25H #### [facility] [address] [place] [address] Monocytes #/vol (Bld) 0.8 10*3/uL Normal 0.0-0.8 [facility] Comment on above: Performed By: #### H EMDF, PT, BMP3M, PHOS3, MG3, CK3 #### [address] #### VD25H #### [facility] [address] [place] [address] Monocytes/100 WBC (Bld) 5.9 % Normal 2.0-10.0 [facility] Comment on above: Performed By: #### H EMDF, PT, BMP3M, PHOS3, MG3, CK3 #### [address] #### VD25H #### [facility] [address] [place] [address] Platelet mean volume Entitic volume (Bld) 8.4 fL Normal 7.4-10.4 [facility] Comment on above: Performed By: #### H EMDF, PT, BMP3M, PHOS3, MG3, CK3 #### [address] #### VD25H #### [facility] [address] [place] [address] Platelets #/vol (Bld) 155 10*3/uL Normal 140-440 [facility] Comment on above: Performed By: #### H EMDF, PT, BMP3M, PHOS3, MG3, CK3 #### [place] [address] [place] #### VD25H #### [facility] [address] [place] [address] RBC #/vol (Bld) 4.13 10*6/uL Low 4.40-5.90 [facility] Comment on above: Performed By: #### H EMDF, PT, BMP3M, PHOS3, MG3, CK3 #### [address] #### VD25H #### [facility] [address] [place] [address] WBC #/vol (Bld) 13.6 10*3/uL High 3.6-10.7 [facility] Comment on above: Performed By: #### H EMDF, PT, BMP3M, PHOS3, MG3, CK3 #### [address] #### VD25H #### [facility] [address] [place] [address] Magnesiumon 07-10-2018 Magnesium mass conc 2.3 mg/dL Normal 1.6-2.3 [facility] Comment on above: Performed By: #### H EMDF, PT, BMP3M, PHOS3, MG3, CK3 #### [address] [place], [place] #### VD25H #### [facility] [address] [place] [address] Phosphoruson 07-10-2018 Phosphate mass conc 2.7 mg/dL Normal 2.5-4.5 [facility] Comment on above: Performed By: #### H EMDF, PT, BMP3M, PHOS3, MG3, CK3 #### [address] #### VD25H #### [facility] [address] [place] [address] Add on test from HISon 07-09 Add on test from HIS Accepted Normal [facility] Comment on above: Result Comment: Spec imen available & acceptable for analysis. Performed By: #### A DDON #### [place] [address] [place], [place] Arterial Blood Gaseson 07-09 CO2 molar conc 24.5 mmol/L Normal 23.0-27.0 [facility] Comment on above: Performed By: #### H EMDF, PT, BMP3M, PHOS3, MG3, CK3 #### [place] [address] [place], [place] #### VD25H #### [facility] [address] [place] [address] HCO3 molar conc (Bld) 23.2 mmol/L Normal 21.0-25.0 [facility] Comment on above: Performed By: #### H EMDF, PT, BMP3M, PHOS3, MG3, CK3 #### [place] [address] [place], [place] #### VD25H #### [facility] [address] [place] [address] Hemoglobin mass conc (Bld) 15.7 g/dL Normal ScreenOnly [facility] Comment on above: Performed By: #### H EMDF, PT, BMP3M, PHOS3, MG3, CK3 #### [place] [address] [place], [place] #### VD25H #### [facility] [address] [facility] [place] [address] Oxygen ppres (Bld) 397.4 mm[Hg] High 80.0-100.0 [facility] Comment on above: Performed By: #### H EMDF, PT, BMP3M, PHOS3, MG3, CK3 #### [address] #### VD25H #### [facility] [address] [place] [address] Oxygen saturation in Blood 99.2 % Normal 95.0-100.0 [facility] Comment on above: Performed By: #### H EMDF, PT, BMP3M, PHOS3, MG3, CK3 #### [place] [address] [place], [place] #### VD25H #### [facility] [address] [place] [address] pCO2 42.3 mm[Hg] Normal 35.0-45.0 [facility] Comment on above: Performed By: #### H EMDF, PT, BMP3M, PHOS3, MG3, CK3 #### [place] [address] [place], [place] #### VD25H #### [facility] [address] [place] [address] pH (Bld) 7.357 Normal 7.350-7.450 [facility] Comment on above: Performed By: #### H EMDF, PT, BMP3M, PHOS3, MG3, CK3 #### [address] #### VD25H #### [facility] [address] [place] [address] Std Base Excess -2.3 mmol/L Normal -3.0-3.0 [facility] Comment on above: Performed By: #### H EMDF, PT, BMP3M, PHOS3, MG3, CK3 #### [address] #### VD25H #### [facility] [address] [place] [address] FIO2 100% Normal [facility] Comment on above: Performed By: #### H EMDF, PT, BMP3M, PHOS3, MG3, CK3 #### [address] #### VD25H #### [facility] [address] [place] [address] Basic Metabolic Panelon 06-29 Calcium mass conc 8.6 mg/dL Normal 8.4-10.4 [facility] Comment on above: Performed By: #### H EMDF, PT, BMP3M, PHOS3, MG3, CK3 #### [place] [address] [place] [address] #### VD25H #### [facility] [address] [place] [address] Glucose mass conc 150 mg/dL High 70-100 [facility] Comment on above: Performed By: #### H EMDF, PT, BMP3M, PHOS3, MG3, CK3 #### [place] [address] [place], [place] #### VD25H #### [facility] [address] [place] [address] Anion gap molar conc 7 Normal [facility] Comment on above: Performed By: #### H EMDF, PT, BMP3M, PHOS3, MG3, CK3 #### [address] #### VD25H #### [facility] [address] [place] [address] CO2 molar conc 26 mmol/L Normal 22-30 [facility] Comment on above: Performed By: #### H EMDF, PT, BMP3M, PHOS3, MG3, CK3 #### [address] #### VD25H #### [facility] [address] [place] [address] Creatinine mass conc 0.80 mg/dL Normal 0.52-1.25 [facility] Comment on above: Performed By: #### H EMDF, PT, BMP3M, PHOS3, MG3, CK3 #### [address] #### VD25H #### [facility] [address] [place] [address] GFR/1.73 sq M predicted among blacks MDRD vol rate/area (S/P/Bld) mL/min/{1.73_m2} Normal >60 [facility] Comment on above: Performed By: #### H EMDF, PT, BMP3M, PHOS3, MG3, CK3 #### [place] [address] [place], [place] #### VD25H #### [facility] [address] [place] [address] GFR/1.73 sq M predicted among non-blacks MDRD vol rate/area (S/P/Bld) mL/min/{1.73_m2} Normal >60 [facility] Comment on above: Result Comment: Sour ce- MDRD equation with creatinine calibration to IDMS(NKDEP) eGFR not recommended for drug dose adjustment Performed By: #### H EMDF, PT, BMP3M, PHOS3, MG3, CK3 #### [address] #### VD25H #### [facility] [address] [place] [address] Urea nitrogen mass conc 16 mg/dL Normal 7-20 [facility] Comment on above: Performed By: #### H EMDF, PT, BMP3M, PHOS3, MG3, CK3 #### [place] [address] [place], [place] #### VD25H #### [facility] [address] [place] [address] Chloride molar conc 110 mmol/L High 98-107 [facility] Comment on above: Performed By: #### H EMDF, PT, BMP3M, PHOS3, MG3, CK3 #### [place] [address] [place], [place] #### VD25H #### [facility] [address] [place] [address] Potassium molar conc 4.7 mmol/L Normal 3.5-5.1 [facility] Comment on above: Performed By: #### H EMDF, PT, BMP3M, PHOS3, MG3, CK3 #### [place] [address] [place], [place] #### VD25H #### [facility] [address] [place] [address] Sodium molar conc 143 mmol/L Normal 135-145 [facility] Comment on above: Performed By: #### H EMDF, PT, BMP3M, PHOS3, MG3, CK3 #### [facility] [address] [place] [address] #### VD25H #### [facility] [address] [place] [address] CKon 07-09-2018 CK enzyme act/vol 1451 U/L High 30-170 [facility] Comment on above: Performed By: #### H EMDF, PT, BMP3M, PHOS3, MG3, CK3 #### [address] [address] #### VD25H #### [facility] [address] [place] [address] CK enzyme act/vol 3832 U/L High 30-170 [facility] Comment on above: Performed By: #### H EMDF, PT, BMP3M, PHOS3, MG3, CK3 #### [address] [address] #### VD25H #### [facility] [address] [place] [address] CR Chest 1 View Frontalon CR Chest 1 View Frontal Patient Name: KATHYA FELDER Diagnostic Radiology Exam Date/Time 07/09/2018 06:21:56 EDT Exam CR Chest 1 View Frontal Ordering Physician MD NATE, NICOLE HOLLEY Accession Number [id number] CPT4 Codes 86823 () Reason For Exam dyspnea Report CHEST [...] Transcribed Date and Time: 07/09/2018 6:39 Normal [facility] CR Chest Portableon 07-10-19 19 CR Chest Portable Patient Name: KATHYA HOOPER Diagnostic Radiology Exam Date/Time 07/09/2018 11:34:09 EDT Exam CR Chest Portable Ordering Physician [id number] JOHNSON Accession Number [id number] CPT4 Codes 98598 () Reason For Exam Central line placement [...] JOHN Transcribed Date and Time: 07/09/2018 1:01 [facility] CR Chest Portable Patient Name: KATHYA HOOPER Diagnostic Radiology Exam Date/Time 07/09/2018 03:05:20 EDT Exam CR Chest Portable Ordering Physician MD NATE, NICOLE HOLLEY Accession Number [id number] CPT4 Codes 07070 () Reason For Exam intubation Report CHEST PORTABLE: Indication: Inpatient; intubation Views: Portable frontal Comparison: 07/08/2018 at 22:16 Time: 07/09/2018 at 2:46 FINDINGS: Interval intubation with endotracheal tube approximately 4.2 cm above the level of the alma. An enteric tube has been placed with distal tip below the hemidiaphragm but excluded from [id number]. Cardiac monitoring wires and leads are present. [...] Transcribed Date and Time: 07/09/2018 3:10 Normal [facility] CR Chest Portable Patient Name: KATHYA HOOPER Diagnostic Radiology Exam Date/Time 07/08/2018 22:31:57 EDT Exam CR Chest Portable Ordering Physician MD NATE, NICOLE HOLLEY Accession Number [id number] CPT4 Codes 52232 () Reason For Exam cough Report CHEST [...] Transcribed Date and Time: 07/08/2018 11:23 Normal [facility] CTA Head/Neck w/ + w/o contr birgit 07-09-2018 CTA Head/Neck w/ + w/o contrast Patient Name: KATHYA HOOPER CT Exam Date/Time 07/09/2018 04:42:10 EDT Exam CTA Head/Neck w/ + w/o contrast Ordering Physician MD RICKI, JORDAN Accession Number [id number] CPT4 Codes Q9967 (CT ISOVUE [id number]), 37576 (), 59098 () Reason For Exam CERVICAL SPINE FRACTURE Report CLINICAL INFORMATION: C-spine fracture after trauma. Vascular injury suspected. CTA HEAD: After 75 ml Isovue IV contrast, 0.3 mm axial cuts were obtained through the brain. Coronal and sagittal reconstructions are reviewed. In addition, 3D images of the [place] of [place] were constructed by me and reviewed simultaneously on the separate [employer] Workstation. The examination is compared to a [...] at 0735 hrs. Report Dictated on Workstation: [employer] Final Dictated: 07/09/2018 9:50 am Dictating Physician: MD JERNIGAN JEFFREY Signed Date and Time: 07/09/2018 10:26 am Signed by: MD JERNIGAN JEFFREY Transcribed Date and Time: 07/09/2018 9:50 Normal [facility] Hemogram w/ Autodiffon 07-09 Abs Baso Cnt 0.1 10*3/uL Normal 0.0-0.2 [facility] Comment on above: Performed By: #### H EMDF, PT, BMP3M, PHOS3, MG3, CK3 #### [address] #### VD25H #### [facility] [address] [place] [address] Abs Neutrophile Cnt 13.3 10*3/uL High 1.8-7.0 [facility] Comment on above: Performed By: #### H EMDF, PT, BMP3M, PHOS3, MG3, CK3 #### [facility] [address] [place], [place] #### VD25H #### [facility] [address] [place] [address] Basophils/100 WBC (Bld) 0.3 % Normal 0.0-2.0 [facility] Comment on above: Performed By: #### H EMDF, PT, BMP3M, PHOS3, MG3, CK3 #### [facility] [address] [place], [place] #### VD25H #### [facility] [address] [place] [address] Eosinophils #/vol (Bld) 0.0 10*3/uL Normal 0.0-0.5 [facility] Comment on above: Performed By: #### H EMDF, PT, BMP3M, PHOS3, MG3, CK3 #### [facility] [address] [place], [place] #### VD25H #### [facility] [address] [place] [address] Eosinophils/100 WBC (Bld) 0.0 % Low 1.0-6.0 [facility] Comment on above: Performed By: #### H EMDF, PT, BMP3M, PHOS3, MG3, CK3 #### [address] #### VD25H #### [facility] [address] [place] [address] Erythrocyte distribution width Ratio (RBC) 13.7 % Normal 11.5-14.5 [facility] Comment on above: Performed By: #### H EMDF, PT, BMP3M, PHOS3, MG3, CK3 #### [address] #### VD25H #### [facility] [address] [place] [address] Granulocytes/100 WBC (Bld) 86.5 % High 40.0-80.0 [facility] Comment on above: Performed By: #### H EMDF, PT, BMP3M, PHOS3, MG3, CK3 #### [address] #### VD25H #### [facility] [address] [place] [address] Hematocrit Volume Fraction (Bld) 45.1 % Normal 40.0-52.0 [facility] Comment on above: Performed By: #### H EMDF, PT, BMP3M, PHOS3, MG3, CK3 #### [address] #### VD25H #### [facility] [address] [place] [address] Hemoglobin mass conc (Bld) 15.6 g/dL Normal 13.0-18.0 [facility] Comment on above: Performed By: #### H EMDF, PT, BMP3M, PHOS3, MG3, CK3 #### [address] #### VD25H #### [facility] [address] [place] [address] Lymphocytes #/vol (Bld) 0.8 10*3/uL Low 1.0-4.3 [facility] Comment on above: Performed By: #### H EMDF, PT, BMP3M, PHOS3, MG3, CK3 #### [address] #### VD25H #### [place] [address] [place] [address] Lymphocytes/100 WBC (Bld) 5.5 % Low 20.0-40.0 [facility] Comment on above: Performed By: #### H EMDF, PT, BMP3M, PHOS3, MG3, CK3 #### [address] #### VD25H #### [place] [address] [place] [address] MCH Entitic mass (RBC) 29.9 pg Normal 26.0-34.0 [facility] Comment on above: Performed By: #### H EMDF, PT, BMP3M, PHOS3, MG3, CK3 #### [address] #### VD25H #### [facility] [address] [place] [address] MCHC mass conc (RBC) 34.5 % Normal 32.0-36.0 [facility] Comment on above: Performed By: #### H EMDF, PT, BMP3M, PHOS3, MG3, CK3 #### [address] #### VD25H #### [facility] [address] [place] [address] MCV Entitic volume (RBC) 86.7 fL Normal 80.0-98.0 [facility] Comment on above: Performed By: #### H EMDF, PT, BMP3M, PHOS3, MG3, CK3 #### [address] #### VD25H #### [facility] [address] [place] [address] Monocytes #/vol (Bld) 1.2 10*3/uL High 0.0-0.8 [facility] Comment on above: Performed By: #### H EMDF, PT, BMP3M, PHOS3, MG3, CK3 #### [address] #### VD25H #### [place] [address] [place] [address] Monocytes/100 WBC (Bld) 7.7 % Normal 2.0-10.0 [facility] Comment on above: Performed By: #### H EMDF, PT, BMP3M, PHOS3, MG3, CK3 #### [address] #### VD25H #### [place] [address] [place] [address] Platelet mean volume Entitic volume (Bld) 8.1 fL Normal 7.4-10.4 [facility] Comment on above: Performed By: #### H EMDF, PT, BMP3M, PHOS3, MG3, CK3 #### [address] #### VD25H #### [facility] [address] [place] [address] Platelets #/vol (Bld) 197 10*3/uL Normal 140-440 [facility] Comment on above: Performed By: #### H EMDF, PT, BMP3M, PHOS3, MG3, CK3 #### [address] [place], [place] #### VD25H #### [employer] [facility] [address] [place] [address] RBC #/vol (Bld) 5.20 10*6/uL Normal 4.40-5.90 [employer] Comment on above: Performed By: #### H EMDF, PT, BMP3M, PHOS3, MG3, CK3 #### [employer] [facility] [address] [place] #### VD25H #### [employer] [facility] [address] [place] [address] WBC #/vol (Bld) 15.4 10*3/uL High 3.6-10.7 [employer] Comment on above: Performed By: #### H EMDF, PT, BMP3M, PHOS3, MG3, CK3 #### [employer] [facility] [address] [place] [address] #### VD25H #### [employer] [address] [place] [address] MRI Spine Cervical w/o Contr birgit 07-09-2018 MRI Spine Cervical w/o Contrast Patient Name: KATHYA HOOPER MRI Exam Date/Time 07/09/2018 00:44:49 EDT Exam MRI Spine Cervical w/o Contrast Ordering Physician MD CHEYENNE, BRITTANY BERRY Accession Number [id number] CPT4 Codes 42892 () Reason For Exam CERVICAL SPINE FRACTURE [...] Transcribed Date and Time: 07/09/2018 7:45 Normal [facility] Magnesiumon 07-09-2018 Magnesium mass conc 2.2 mg/dL Normal 1.6-2.3 [facility] Comment on above: Performed By: #### H EMDF, PT, BMP3M, PHOS3, MG3, CK3 #### [facility] [address] [place] [address] #### VD25H #### [facility] [address] [place] [address] Phosphoruson 07-09-2018 Phosphate mass conc 4.0 mg/dL Normal 2.5-4.5 [facility] Comment on above: Performed By: #### H EMDF, PT, BMP3M, PHOS3, MG3, CK3 #### [facility] [address] [place], [place] #### VD25H #### [facility] [address] [place] [address] Prothrombin Timeon 9 INR Coag RelTime (PPP) 1.0 Normal 0.9-1.1 [facility] Comment on above: Result Comment: Yefri [...] EMDF, PT, BMP3M, PHOS3, MG3, CK3 #### [address] #### VD25H #### [place] [address] [place] [address] Prothrombin time (PT) Coag time (PPP) 10.3 s Normal 9.0-12.0 [facility] Comment on above: Result Comment: . Performed By: #### H EMDF, PT, BMP3M, PHOS3, MG3, CK3 #### [address] #### VD25H #### [place] [address] [place] [address] TS GELon 07-09-2018 TS GEL ABO Group: O Rh, Gel: POS Antibody Screen Gel: NEG Normal [facility] Comment on above: Performed By: #### T SGL #### [address] [address] Vit D 25-OH, Totalon 019 Vit D 25-OH, Total 23 ng/mL Low 30-100 [facility] Comment on above: Result Comment: Ther apy is based on measurement of Total 25-OHD with the following classification levels: Less than 20 ng/mL: Indicative of Vit D deficiency 20-30 ng/mL: Suggests Vit D insufficiency Optimal: Greater than or equal to 30 ng/mL Test performed by [employer] Competitive Immunoassay, measuring Total Vitamin D, not individual fractions. Performed By: #### H EMDF, PT, BMP3M, PHOS3, MG3, CK3 #### [facility] [address] [place] [address] #### VD25H #### [employer] [address] [place] [address] Hematologyon 01-03-2003 Lymphocytes (Bld) [#/Vol] RECTUM, BIOPSY - BENIGN COLONIC MUCOSA WITH INTRAMUCOSAL LYMPHOID AGGREGATES. [facility] Otheron 01-03-2003 CONVERTED ELECTRONIC SIGNATURE BARBARA CASTILLO M.D., PATHOLOGIST (Electronic signature on file) Final Signed Out: 01/03/2003 15:09 [facility] CONVERTED ORDERING PROVIDER Ordering Provider: BENI VERA [facility] Culture, urine Bacteria identified Cx Nom (U) Culture exhibits no growth. [facility] Work Phone: Vital Signs Date Time Vital Sign Value Performing Clinician Facility 10-02-2023 13:56-0400 Diastolic blood pressure 62 mm[Hg] Fei Farooq MD Work Phone: [facility] 10-02-2023 13:56-0400 Heart rate 104 /min Fei Farooq MD Work Phone: [facility] 10-02-2023 13:56-0400 SaO2% (BldA) [Mass fraction] 94 % Fei Farooq MD Work Phone: [facility] 10-02-2023 13:56-0400 Systolic blood pressure 124 mm[Hg] Fei Farooq MD Work Phone: [facility] 10-02-2023 11:13-0400 Respiratory rate 16 /min Fei Farooq MD Work Phone: [facility] 10-02-2023 09:47-0400 Body mass index (BMI) [Ratio] 26.19 kg/m2 Fei Farooq MD Work Phone: [facility] 10-02-2023 09:47-0400 Body temperature 98.01 [degF] Fei Farooq MD Work Phone: [employer] 10-02-2023 09:47-0400 Body weight 92.53 kg Fei Farooq MD Work Phone: [employer] 05-20-2022 18:30-0500 Body mass index (BMI) [Ratio] 26.32 kg/m2 Abelardo Gombash DO Work Phone: [employer] 05-20-2022 18:30-0500 Body temperature 97.3 [degF] Abelardo Gombash DO Work Phone: [employer] 05-20-2022 18:30-0500 Body weight 92.99 kg Abelardo Gombash DO Work Phone: [employer] 05-20-2022 18:30-0500 Diastolic blood pressure 108 mm[Hg] Abelardo Gombash DO Work Phone: [employer] 05-20-2022 18:30-0500 Heart rate 100 /min Abelardo Gombash DO Work Phone: [employer] 05-20-2022 18:30-0500 Respiratory rate 14 /min Abelardo Gombash DO Work Phone: [employer] 05-20-2022 18:30-0500 SaO2% (BldA) [Mass fraction] 98 % Abelardo Gombash DO Work Phone: [employer] 05-20-2022 18:30-0500 Systolic blood pressure 125 mm[Hg] Abelardo Gombash DO Work Phone: [employer] 05-15-2021 09:40-0500 Body height 188 cm Timothy Micheal DO Work Phone: [facility] 05-15-2021 09:40-0500 Body mass index (BMI) [Ratio] 23.75 kg/m2 Timothy Micheal DO Work Phone: [facility] 05-15-2021 09:40-0500 Body weight 83.92 kg Timothy Micheal DO Work Phone: [facility] 05-15-2021 09:38-0500 Body temperature 97.59 [degF] Timothy [...] 115 mm[Hg] Timothy Micheal DO Work Phone: [facility] 03-24-2021 10:20-0500 Respiratory rate 18 /min Brady Nesheim DO Work Phone: [facility] 03-24-2021 10:20-0500 SaO2% (BldA) [Mass fraction] 94 % Brady Nesheim DO Work Phone: [facility] 03-24-2021 08:44-0500 Body temperature 97.7 [degF] Brady Nesheim DO Work Phone: [facility] 03-24-2021 08:44-0500 Diastolic blood pressure 55 mm[Hg] Brady Nesheim DO Work Phone: [facility] 03-24-2021 08:44-0500 Heart rate 85 /min Brady Nesheim DO Work Phone: [facility] 03-24-2021 08:44-0500 Systolic blood pressure 85 mm[Hg] Brady Nesheim DO Work Phone: [facility] 03-20-2021 13:41-0500 Body height 188 cm Brady Nesheim DO Work Phone: [facility] 03-20-2021 11:16-0500 Body mass index (BMI) [Ratio] 23.86 kg/m2 Brady Nesheim DO Work Phone: [facility] 03-20-2021 11:16-0500 Body weight 84.32 kg Brady Nesheim DO Work Phone: [facility] Comment on above: earlene Ingram RN (bed scal e measurement) on 03/20/2021 03-18-2021 15:02-0500 Body temperature 99.5 [degF] Boo Castro MD Work Phone: [facility] 03-18-2021 15:02-0500 Diastolic blood pressure 82 mm[Hg] Boo Castro MD Work Phone: [facility] 03-18-2021 15:02-0500 Heart rate 111 /min Boo Castro MD Work Phone: [facility] 03-18-2021 15:02-0500 Respiratory rate 18 /min Boo Castro MD Work Phone: [facility] 03-18-2021 15:02-0500 SaO2% (BldA) [Mass fraction] 93 % Boo Castro MD Work Phone: [facility] 03-18-2021 15:02-0500 Systolic blood pressure 111 mm[Hg] Boo Castro MD Work Phone: [facility] 10-30-2020 17:10-0400 Diastolic blood pressure 82 mm[Hg] Bethany Clemons MD Work Phone: [facility] Work Phone: 10-30-2020 17:10-0400 Heart rate 110 /min Bethany Clemons MD Work Phone: [facility] Work Phone: 10-30-2020 17:10-0400 Respiratory rate 16 /min Bethany Clemons MD Work Phone: [facility] Work Phone: 10-30-2020 17:10-0400 SaO2% (BldA) [Mass fraction] 99 % Bethany Clemons MD Work Phone: [facility] Work Phone: 10-30-2020 17:10-0400 Systolic blood pressure 125 mm[Hg] Bethany Clemons MD Work Phone: [facility] Work Phone: 10-30-2020 13:02-0400 Body mass index (BMI) [Ratio] 24.65 kg/m2 Bethany Clemons MD Work Phone: [facility] Work Phone: 10-30-2020 13:02-0400 Body temperature 96.91 [degF] Bethany Clemons MD Work Phone: [facility] Work Phone: 10-30-2020 13:02-0400 Body weight 87.09 kg Bethany Clemons MD Work Phone: [facility] Work Phone: 09-22-2020 05:01-0400 Diastolic blood pressure 76 mm[Hg] Elizabeth Burgess MD Work Phone: [facility] Work Phone: 09-22-2020 05:01-0400 Systolic blood pressure 114 mm[Hg] Elizabeth Burgess MD Work Phone: [facility] Work Phone: 09-22-2020 00:26-0400 Body temperature 97.81 [degF] Elizabeth Burgess MD Work Phone: [facility] Work Phone: 09-22-2020 00:26-0400 Heart rate 86 /min Elizabeth Burgess MD Work Phone: [facility] Work Phone: 09-22-2020 00:26-0400 Respiratory rate 16 /min Elizabeth Burgess MD Work Phone: [facility] Work Phone: 09-22-2020 00:26-0400 SaO2% (BldA) [Mass fraction] 98 % Elizabeth Burgess MD Work Phone: [facility] Work Phone: 06-26-2020 [...] 100 % Elizabeth Burgess MD Work Phone: [facility] Work Phone: 05-16-2019 23:00-0500 Systolic blood pressure 115 mm[Hg] Elizabeth Burgess MD Work Phone: [facility] Work Phone: 05-16-2019 19:57-0500 Body temperature 98.49 [degF] Elizabeth Burgess MD Work Phone: [facility] Work Phone: NEGATED: Highlighted [id number] 14:34-0500 BMI (Body Mass Index) 22.16 kg/m2 Ana Diesch [employer] [facility] Work Phone: NEGATED: Highlighted [id number] 14:34-0500 Body weight 78.02 kg Ana Diesch [employer] [facility] Work Phone: NEGATED: Highlighted [id number] 14:34-0500 Body weight 78 kg Ana Diesch [employer] [facility] Work Phone: NEGATED: Highlighted [id number] 14:34-0500 BP Diastolic 66 mm[Hg] Ana Diesch [employer] [facility] Work Phone: NEGATED: Highlighted [id number] 14:34-0500 BP Systolic 102 mm[Hg] Ana Diesch [employer] [facility] Work Phone: NEGATED: Highlighted [id number] 14:34-0500 Height 187.96 cm Ana Diesch [employer] [facility] Work Phone: NEGATED: Highlighted [id number] 14:34-0500 Height 188 cm Ana Diesch [employer] [facility] Work Phone: NEGATED: Highlighted [id number] 14:34-0500 Pulse (Heart Rate) 104 /min Ana Diesch [facility] [employer] [facility] Work Phone: Encounters Encounter Date Encounter Type Care Provider Facility Start: 02-17-2025 ambulatory Renard Burgos OLS Faci lity:[facility] Start: 02-10-2025 ambulatory Renard Burgos OLS Faci lity:[facility] Start: 02-03-2025 ambulatory Renard Burgos OLS Faci lity:[facility] Start: 01-27-2025 ambulatory Renard Amezquitaros OLS Faci lity:[facility] Start: 01-20-2025 ambulatory Renard Hensleysaros OLS Faci lity:[facility] Start: 01-13-2025 ambulatory Renard Amezquitaros OLS Faci lity:[facility] Start: 01-10-2025 ambulatory Renard Hensleysaros OLS Faci lity:[facility] Start: 01-06-2025 ambulatory Renard Amezquitaros OLS Faci lity:[facility] Start: 12-31-2024 ambulatory Renard Amezquitaros OLS Faci lity:[facility] Start: 12-23-2024 End: 12-23-2024 ambulatory Renard Burgos OLS Facility:[facility] Start: 12-16-2024 ambulatory Renard Burgos OLS Faci lity:[facility] Start: 12-09-2024 ambulatory Renard Amezquitaros OLS Faci lity:[facility] Start: 12-02-2024 ambulatory Renard Amezquitaros OLS Faci lity:[facility] Start: 11-25-2024 ambulatory Renard Burgos OLS Faci lity:[facility] Start: 11-25-2024 Registered Referred Renard Burgos - Julissa Kilpatrick [facility] Start: 11-18-2024 ambulatory Renard Burgos OLS Faci lity:[facility] Start: 11-18-2024 Registered Referred Renard Burgos - Julissa BRUNO Start: 11-11-2024 ambulatory Renard Burgos OLS Faci lity:[facility] Start: 11-11-2024 Registered Referred Renard Burgos - Manly Shonna BRUNO Start: 11-04-2024 ambulatory Renard Burgos OLS Faci lity:[facility] Start: 07-07-2025 Registered Referred Renard Burgos - [employer] Start: 10-28-2024 ambulatory Renard GARLAND Faci lity:[facility] Start: 10-28-2024 Registered Referred Renard Burgos - [employer] Start: 10-21-2024 End: 10-21-2024 ambulatory Renard GARLAND -[employer] [employer] Start: 10-21-2024 End: 10-21-2024 Departed Referred Renard Burgos -[employer] [employer] Start: 10-21-2024 Registered Referred Renard Amezquitaros - [employer] Start: 10-21-2024 End: 10-21-2024 ambulatory Renard GARLAND Facility:[facility] Start: 10-14-2024 ambulatory Renard GARLAND Faci lity:[facility] Start: 10-14-2024 Registered Referred Renard Burgos - [employer] Start: 10-07-2024 ambulatory Renard GARLAND Faci lity:[facility] Start: 10-07-2024 Registered Referred Renard Burgos - [employer] Start: 09-30-2024 ambulatory Renard GARLAND Faci lity:[facility] Start: 09-30-2024 Registered Referred Renard Burgos - [employer] Start: 09-24-2024 End: 09-24-2024 ambulatory Renard GARLAND -[employer] [employer] Start: 09-24-2024 End: 09-24-2024 Departed Referred Renard Burgos -[employer] Start: 09-24-2024 Registered Referred Renard Burgos - [employer] Start: 09-24-2024 End: 09-24-2024 ambulatory Renard GARLAND Facility:[facility] Start: 09-16-2024 End: 09-16-2024 ambulatory Renard GARLAND -[employer] Start: 09-16-2024 End: 09-16-2024 Departed Referred Renard Burgos -[employer] [employer] Start: 09-16-2024 Registered Referred Renard Burgos - [employer] Start: 09-16-2024 End: 09-16-2024 ambulatory Renard GARLAND Facility:[facility] Start: 09-11-2024 End: 09-11-2024 ambulatory Renard Shelliediego GARLAND [facility] Work Phone: Start: 09-11-2024 End: 09-11-2024 Departed Referred Renard Burgos -Manly [facility]onna BRUNO Start: 09-11-2024 Registered Referred Renard Burgos - [employer] Start: 09-11-2024 End: 09-11-2024 ambulatory Renard GARLAND Facility:[facility] Start: 09-09-2024 End: 09-09-2024 ambulatory Renard GARLAND [facility] Work Phone: Start: 09-09-2024 End: 09-09-2024 Departed Referred Renard Burgos -[facility]ly [facility] BRUNO Start: 09-09-2024 Registered Referred Renard Burgos - [facility] [employer] [facility]UNO Start: 09-09-2024 End: 09-09-2024 ambulatory Renard GARLAND Facility:[facility] Start: 09-02-2024 End: 09-02-2024 ambulatory Renard GARLAND [facility] Work Phone: Start: 09-02-2024 End: 09-02-2024 Departed Referred Renard Burgos -[employer] Start: 09-02-2024 Registered Referred Renard Burgos - [facility] [facility]UNO Start: 09-02-2024 End: 09-02-2024 ambulatory Renard GARLAND Facility:[facility] Start: 08-26-2024 End: 08-26-2024 ambulatory Renard Shelliediego GAR[place] [facility] Work Phone: Start: 08-26-2024 End: 08-26-2024 Departed Referred Renard Burgos -[employer] Start: 08-26-2024 Registered Referred Renard Burgos - [employer] Start: 08-26-2024 End: 08-26-2024 ambulatory Renard GARLAND Facility:[facility] Start: 08-23-2024 End: 08-23-2024 Departed Referred Renard Burgos -[employer] [employer] Start: 08-23-2024 Registered Referred Renard Burgos - [employer] Start: 08-23-2024 End: 08-23-2024 ambulatory Renard GARLAND Facility:[facility] Start: 08-19-2024 End: 08-19-2024 ambulatory Renard GARLAND [facility] Work Phone: Start: 08-19-2024 End: 08-19-2024 Departed Referred Renard Amezquitaros -[employer] Start: 08-19-2024 Registered Referred Renard Burgos - [employer] Start: 08-19-2024 End: 08-19-2024 ambulatory Renard GARLAND Facility:[facility] Start: 08-12-2024 End: 08-12-2024 ambulatory Renard GARLAND [facility] Work Phone: Start: 08-12-2024 End: 08-12-2024 Departed Referred Renard Burgos -[employer] [employer] Start: 08-12-2024 Registered Referred Renard Burgos - [employer] Start: 08-12-2024 End: 08-12-2024 ambulatory Renard GARLAND Facility:[facility] Start: 08-05-2024 End: 08-05-2024 Departed Referred Renard Amezquitaros -[employer] Start: 08-05-2024 Registered Referred Renard Amezquitaros - [employer] Start: 08-05-2024 End: 08-05-2024 ambulatory Renard GARLAND Facility:[facility] Start: 07-29-2024 End: 07-29-2024 ambulatory Renard GARLAND [facility] Work Phone: Start: 07-29-2024 End: 07-29-2024 Departed Referred Renard Burgos -[employer] Start: 07-29-2024 Registered Referred Renard Burgos - [employer] Start: 07-29-2024 End: 07-29-2024 ambulatory Renard GARLAND Facility:[facility] Start: 07-22-2024 End: 07-22-2024 ambulatory Renard Shelliediego GAR[place] [facility] Work Phone: Start: 07-22-2024 End: 07-22-2024 Departed Referred Renard Burgos -[employer] Start: 07-22-2024 Registered Referred Renard [facility] [employer] Start: 07-22-2024 End: 07-22-2024 ambulatory Renard GARLAND Facility:[facility] Start: 07-16-2024 End: 07-16-2024 ambulatory Renard GARLAND [facility] Work Phone: Start: 07-16-2024 End: 07-16-2024 Departed Referred Renard Burgos -[employer] [employer] Start: 07-16-2024 Registered Referred Renard Burgos - [employer] [employer] Start: 07-15-2024 End: 07-16-2024 ambulatory Renard GARLAND [facility] Work Phone: Start: 07-15-2024 End: 07-15-2024 Departed Referred Renard Burgos -[employer] Start: 07-15-2024 Registered Referred Renard Burgos - [employer] Start: 07-15-2024 End: 07-15-2024 ambulatory Renard GARLAND Facility:[facility] Start: 07-08-2024 End: 07-08-2024 ambulatory Renard GARLAND [facility] Work Phone: Start: 07-08-2024 End: 07-08-2024 Departed Referred Renard Burgos -[employer] Start: 07-08-2024 Registered Referred Renard Burgos - [employer] Start: 07-08-2024 End: 07-08-2024 ambulatory Renard GARLAND Facility:[facility] Start: 07-01-2024 End: 07-01-2024 ambulatory Renard GARLAND [facility] Work Phone: Start: 07-01-2024 End: 07-01-2024 Departed Referred Renard Burgos [facility] Start: 07-01-2024 Registered Referred Renard Burgos - [employer] Start: 07-01-2024 End: 07-01-2024 ambulatory Renard GARLAND Facility:[facility] Start: 06-27-2024 End: 06-27-2024 ambulatory Renard Shelliediego GARLAND [facility] Work Phone: Start: 06-27-2024 End: 06-27-2024 Departed Referred Renard Amezquitaros [facility] Start: 06-27-2024 Registered Referred Renard Amezquitaros - [employer] Start: 06-27-2024 End: 06-27-2024 ambulatory Renard GARLAND Facility:[facility] Start: 06-24-2024 End: 06-24-2024 Subsequent hospital visit by physician Rashaad Pink NP Work Phone: [facility] Comment on above: Chronic cough Start: 06-24-2024 End: 06-24-2024 ambulatory RASHAAD SMITH [facility] Start: 06-24-2024 End: 06-24-2024 Departed Referred Renard Burgos -[employer] [employer] Start: 06-24-2024 Registered Referred Renard Burgos - [employer] [employer] Start: 06-24-2024 End: 06-24-2024 ambulatory Renard GARLAND Facility:[facility] Start: 06-17-2024 End: 06-17-2024 ambulatory Renard GARLAND [facility] Work Phone: Start: 06-17-2024 End: 06-17-2024 Departed Referred Renrad Burgos [facility] [employer] Start: 06-17-2024 Registered Referred Renard Burgos - [employer] [employer] Start: 06-17-2024 End: 06-17-2024 ambulatory Renard GARLAND Facility:[facility] Start: 06-12-2024 End: 09-11-2024 Transcribe Orders Rashaad Pink NP Work Phone: [facility] Scheduling Comment on above: Chronic cough (Prima ry Dx) Start: 06-10-2024 End: 06-10-2024 ambulatory Renard GARLAND [facility] Work Phone: Start: 06-10-2024 End: 06-10-2024 Departed Referred Renard Burgos [facility] [employer] Start: 06-10-2024 Registered Referred Renard Burgos - [facility] [employer] Start: 06-10-2024 End: 06-10-2024 ambulatory Renard GARLAND Facility:[facility] Start: 06-07-2024 End: 06-07-2024 ambulatory Renard GARLAND [facility] Work Phone: Start: 06-07-2024 End: 06-07-2024 Departed Referred Renard Burgos [facility] [employer] Start: 06-07-2024 Registered Referred Renard Burgos [facility] [employer] Start: 06-07-2024 End: 06-07-2024 ambulatory Renard GARLAND Facility:[facility] Start: 06-03-2024 End: 06-03-2024 ambulatory Renard GARLAND [facility] Work Phone: Start: 06-03-2024 End: 06-03-2024 Departed Referred Renard Burgos [facility] [employer] Start: 06-03-2024 End: 06-03-2024 ambulatory Renard GARLAND Facility:[facility] Start: 05-27-2024 End: 05-27-2024 Departed Referred Renard Burgos [facility] [employer] Start: 05-27-2024 End: 05-27-2024 ambulatory Renard GARLAND Facility:[facility] Start: 05-20-2024 End: 05-20-2024 Departed Referred Renard Burgos [facility] [employer] Start: 05-20-2024 End: 05-20-2024 ambulatory Renard GARLAND Facility:[facility] Start: 05-13-2024 End: 05-13-2024 Departed Referred Renard Burgos [facility] [employer] Start: 05-13-2024 End: 05-13-2024 ambulatory Renard GARLAND Facility:[facility] Start: 05-06-2024 End: 05-06-2024 Departed Referred Renard Burgos [facility] [employer] Start: 05-06-2024 End: 05-06-2024 ambulatory Renard GARLAND Facility:[facility] Start: 05-03-2024 End: 05-03-2024 Telephone encounter Renard Burgos Work Phone: [facility] Clinical Communication Comment on above: Other Start: 04-29-2024 End: 04-29-2024 Departed Referred Renard [facility] [employer] Start: 04-29-2024 End: 04-29-2024 ambulatory Renard GARLAND Facility:[facility] Start: 04-22-2024 End: 04-22-2024 Departed Referred Renard [facility] [employer] Start: 04-22-2024 End: 04-22-2024 ambulatory Renard GARLAND Facility:[facility] Start: 04-15-2024 End: 04-15-2024 Departed Referred Renard [facility] [employer] Start: 04-15-2024 End: 04-15-2024 ambulatory Renard GARLAND Facility:[facility] Start: 04-08-2024 ambulatory Renard GARLAND Faci lity:[facility] Start: 04-08-2024 Registered Referred Renard Burgos - [facility] [employer] Start: 04-01-2024 ambulatory Renard GARLAND Faci lity:[facility] Start: 04-01-2024 Registered Referred Renard Burgos [facility] [employer] Start: 03-25-2024 End: 03-25-2024 Departed Referred Renard Burgos [facility] [employer] Start: 03-25-2024 End: 03-25-2024 ambulatory Renard GARLAND Facility:[facility] Start: 03-18-2024 End: 03-18-2024 Departed Referred Renard Burgos [facility] [employer] Start: 03-18-2024 End: 03-18-2024 ambulatory Renard GARLAND Facility:[facility] Start: 03-11-2024 End: 03-11-2024 Departed Referred Renard Shelliediego [facility] Start: 03-11-2024 End: 03-11-2024 ambulatory Renard GARLAND Facility:[facility] Start: 03-04-2024 End: 03-04-2024 ambulatory Renard GARLAND Facility:[facility] Start: 02-26-2024 End: 02-26-2024 ambulatory Renard GARLAND Facility:[facility] Start: 02-23-2024 End: 02-23-2024 ambulatory Renard GARLAND Facility:[facility] Start: 11-22-2023 End: 11-22-2023 ambulatory RENARD SHELLIEDIEGO [facility] Start: 11-22-2023 End: 11-22-2023 Subsequent hospital visit by physician Renard Burgos Work Phone: [facility] X-ray Imaging Comment on above: Dysphagia, oropharyn geal phase; Feeding difficulties Start: 10-16-2023 End: 01-15-2024 Transcribe Orders Renard Burgos Work Phone: [facility] Central Scheduling Comment on above: Dysphagia, oropharyn geal phase (Primary Dx); Feeding difficulties Start: 10-02-2023 End: 10-02-2023 Emergency department patient visit Fei Farooq MD Work Phone: [facility] ED Comment on above: Dyspnea, unspecified type (Primary Dx) Start: 08-07-2023 Registered Referred [facility] [employer] Start: 07-31-2023 End: 07-31-2023 ambulatory [facility] Work Phone: Start: 07-31-2023 End: 07-31-2023 Departed Referred [facility] [employer] Start: 07-31-2023 Registered Referred [facility] [employer] Start: 07-24-2023 End: 07-24-2023 ambulatory [facility] Work Phone: Start: 07-24-2023 End: 07-24-2023 Departed Referred [facility] [employer] Start: 07-17-2023 End: 07-17-2023 ambulatory [facility] Work Phone: Start: 07-17-2023 End: 07-17-2023 Departed Referred [facility] [employer] Start: 07-17-2023 Registered Referred [facility] [employer] Start: 07-10-2023 End: 07-10-2023 ambulatory [facility] Work Phone: Start: 07-10-2023 End: 07-10-2023 [facility] Start: 07-10-2023 Registered Referred [facility] [employer] Start: 07-03-2023 End: 07-03-2023 ambulatory [facility] Work Phone: Start: 07-03-2023 End: 07-03-2023 Departed Referred [facility] [employer] Start: 07-03-2023 Registered Referred [facility] [employer] Start: 06-26-2023 Registered Referred [facility] [employer] Start: 06-19-2023 End: 06-19-2023 ambulatory [facility] Work Phone: Start: 06-19-2023 End: 06-19-2023 Departed Referred [facility] [employer] Start: 06-19-2023 Registered Referred [facility] [employer] Start: 06-12-2023 End: 06-12-2023 ambulatory [facility] Work Phone: Start: 06-12-2023 End: 06-12-2023 [facility] Start: 06-12-2023 Registered Referred [facility] [employer] Start: 06-05-2023 End: 06-05-2023 ambulatory [facility] Work Phone: Start: 06-05-2023 End: 06-05-2023 Departed Referred [facility] [employer] Start: 06-05-2023 Registered Referred [facility] [employer] Start: 05-29-2023 End: 05-29-2023 Departed Referred [facility] [employer] Start: 05-29-2023 Registered Referred [facility] [employer] Start: 05-22-2023 End: 05-22-2023 ambulatory [facility] Work Phone: Start: 05-22-2023 End: 05-22-2023 [facility] Start: 05-22-2023 Registered Referred [facility] [employer] Start: 05-15-2023 End: 05-15-2023 [facility] Start: 05-15-2023 Registered Referred [facility] [employer] Start: 05-08-2023 End: 05-08-2023 ambulatory [facility] Work Phone: Start: 05-08-2023 End: 05-08-2023 Departed Referred [facility] [employer] Start: 04-17-2023 End: 04-17-2023 ambulatory [facility] Work Phone: Start: 04-17-2023 End: 04-17-2023 [facility] Start: 04-17-2023 [facility] Start: 04-14-2023 End: 04-14-2023 ambulatory [facility] Work Phone: Start: 04-14-2023 End: 04-14-2023 [facility] Start: 04-14-2023 Registered Referred [facility] [employer] Start: 04-10-2023 End: 04-10-2023 Departed Referred [facility] [employer] Start: 04-10-2023 Registered Referred [facility] [employer] Start: 04-03-2023 End: 04-03-2023 ambulatory [facility] Work Phone: Start: 04-03-2023 End: 04-03-2023 Departed Referred [facility] [employer] Start: 04-03-2023 Registered Referred [facility] [employer] Start: 03-27-2023 End: 03-27-2023 ambulatory [facility] Work Phone: Start: 03-27-2023 End: 03-27-2023 [facility] Start: 03-27-2023 [facility] Start: 03-20-2023 End: 03-20-2023 ambulatory [facility] Work Phone: Start: 03-20-2023 End: 03-20-2023 [facility] Start: 03-20-2023 Registered Referred [facility] [employer] Start: 03-16-2023 End: 03-16-2023 ambulatory [facility] Work Phone: Start: 03-16-2023 End: 03-16-2023 Departed Referred [facility] [employer] Start: 03-16-2023 [facility] Start: 03-13-2023 End: 03-13-2023 ambulatory [facility] Work Phone: Start: 03-13-2023 End: 03-13-2023 [facility] Start: 03-06-2023 End: 03-06-2023 ambulatory [facility] Work Phone: Start: 03-06-2023 End: 03-06-2023 Departed Referred [facility] [employer] Start: 03-06-2023 Registered Referred [facility] [employer] Start: 02-27-2023 End: 02-27-2023 ambulatory [facility] Work Phone: Start: 02-27-2023 End: 02-27-2023 Departed Referred [facility] [employer] Start: 02-20-2023 End: 02-20-2023 ambulatory [facility] Work Phone: Start: 02-20-2023 End: 02-20-2023 Departed Referred [facility] [employer] Start: 02-20-2023 Registered Referred [facility] [employer] Start: 02-13-2023 End: 02-13-2023 ambulatory [facility] Work Phone: Start: 02-13-2023 End: 02-13-2023 Departed Referred [facility] [employer] Start: 02-13-2023 Registered Referred [facility] [employer] Start: 02-06-2023 End: 02-06-2023 ambulatory [facility] Work Phone: Start: 02-06-2023 End: 02-06-2023 Departed Referred [facility] [employer] Start: 02-06-2023 Registered Referred [facility] [employer] Start: 01-30-2023 End: 01-30-2023 ambulatory [facility] Work Phone: Start: 01-30-2023 End: 01-30-2023 Departed Referred [facility] [employer] Start: 01-30-2023 Registered Referred [facility] [employer] Start: 01-23-2023 End: 01-23-2023 [facility] Start: 01-23-2023 Registered Referred [facility] [employer] Start: 01-16-2023 End: 01-16-2023 ambulatory [facility] Work Phone: Start: 01-16-2023 End: 01-16-2023 Departed Referred [facility] [employer] Start: 01-16-2023 Registered Referred [facility] [employer] Start: 01-09-2023 End: 01-09-2023 [facility] Start: 01-09-2023 Registered Referred [facility] [employer] Start: 01-03-2023 End: 01-03-2023 ambulatory [facility] Work Phone: Start: 01-03-2023 End: 01-03-2023 [facility] Start: 01-03-2023 Registered Referred [facility] [employer] Start: 12-26-2022 End: 12-26-2022 ambulatory [facility] Work Phone: Start: 12-26-2022 End: 12-26-2022 Departed Referred [facility] [employer] Start: 12-26-2022 Registered Referred [facility] [employer] Start: 12-19-2022 End: 12-19-2022 ambulatory [facility] Work Phone: Start: 12-19-2022 End: 12-19-2022 Departed Referred [facility] [employer] Start: 12-19-2022 Registered Referred [facility] [employer] Start: 12-12-2022 End: 12-12-2022 Departed Referred [facility] [employer] Start: 12-12-2022 Registered Referred [facility] [employer] Start: 12-05-2022 End: 12-05-2022 ambulatory [facility] Work Phone: Start: 12-05-2022 End: 12-05-2022 Departed Referred [facility] [employer] Start: 12-05-2022 [facility] [employer] Start: 11-28-2022 End: 11-28-2022 ambulatory [facility] Work Phone: Start: 11-28-2022 End: 11-28-2022 Departed Referred [facility] [employer] Start: 11-28-2022 [facility] Start: 11-21-2022 End: 11-21-2022 ambulatory [facility] Work Phone: Start: 11-21-2022 End: 11-21-2022 [facility] Start: 11-21-2022 [facility] Start: 11-14-2022 End: 11-14-2022 ambulatory [facility] Work Phone: Start: 11-14-2022 End: 11-14-2022 [facility] Start: 11-14-2022 Registered [facility] [employer] Start: 11-07-2022 Registered [facility] [employer] Start: 10-31-2022 End: 10-31-2022 ambulatory [facility] Work Phone: Start: 10-31-2022 End: 10-31-2022 Departed Referred [facility] [employer] Start: 10-31-2022 Registered [facility] [employer] Start: 10-24-2022 End: 10-24-2022 ambulatory [facility] Work Phone: Start: 10-24-2022 End: 10-24-2022 [facility] Start: 10-24-2022 Registered [facility] [employer] Start: 10-17-2022 End: 10-17-2022 [facility] Start: 10-17-2022 [facility] Start: 10-10-2022 End: 10-10-2022 ambulatory [facility] Work Phone: Start: 10-10-2022 End: 10-10-2022 [facility] Start: 10-10-2022 [facility] Start: 10-03-2022 End: 10-03-2022 ambulatory [facility] Work Phone: Start: 10-03-2022 End: 10-03-2022 [facility] Start: 09-19-2022 End: 09-19-2022 [facility] Start: 09-19-2022 [facility] Start: 09-12-2022 End: 09-12-2022 ambulatory [facility] Work Phone: Start: 09-12-2022 End: 09-12-2022 [facility] Start: 09-05-2022 End: 09-05-2022 [facility] Start: 09-05-2022 [facility] Start: 08-29-2022 End: 08-29-2022 [facility] Start: 08-29-2022 [facility] Start: 08-22-2022 End: 08-22-2022 ambulatory [facility] Work Phone: Start: 08-22-2022 End: 08-22-2022 [facility] Start: 08-22-2022 Registered Referred [facility] [employer] Start: 08-15-2022 End: 08-15-2022 ambulatory [facility] Work Phone: Start: 08-15-2022 End: 08-15-2022 Departed Referred [facility] [employer] Start: 08-15-2022 Registered Referred [facility] [employer] Start: 08-08-2022 End: 08-08-2022 Departed Referred [facility] [employer] Start: 08-08-2022 Registered Referred [facility] [employer] Start: 08-01-2022 End: 08-01-2022 ambulatory [facility] Work Phone: Start: 08-01-2022 End: 08-01-2022 Departed Referred [facility] [employer] Start: 08-01-2022 Registered Referred [facility] [employer] Start: 07-25-2022 End: 07-25-2022 ambulatory [facility] Work Phone: Start: 07-25-2022 End: 07-25-2022 [facility] Start: 07-25-2022 Registered Referred [facility] [employer] Start: 07-19-2022 End: 07-19-2022 Departed Referred [facility] [employer] Start: 07-19-2022 Registered Referred [facility] [employer] Start: 07-18-2022 End: 07-18-2022 ambulatory [facility] Work Phone: Start: 07-18-2022 End: 07-18-2022 [facility] Start: 07-18-2022 [facility] Start: 07-11-2022 End: 07-11-2022 ambulatory [facility] Work Phone: Start: 07-11-2022 End: 07-11-2022 Departed Referred [facility] [employer] Start: 07-11-2022 Registered Referred [facility] [employer] Start: 07-04-2022 End: 07-04-2022 [facility] Start: 07-04-2022 Registered Referred [facility] [employer] Start: 06-27-2022 End: 06-27-2022 ambulatory [facility] Work Phone: Start: 06-27-2022 End: 06-27-2022 [facility] Start: 06-27-2022 [facility] Start: 06-20-2022 End: 06-20-2022 ambulatory [facility] Work Phone: Start: 06-20-2022 End: 06-20-2022 [facility] Start: 06-20-2022 Registered Referred [facility] [employer] Start: 06-13-2022 End: 06-13-2022 ambulatory [facility] Work Phone: Start: 06-13-2022 End: 06-13-2022 [facility] Start: 06-13-2022 Registered Referred [facility] [employer] Start: 06-06-2022 End: 06-06-2022 [facility] Start: 06-06-2022 Registered Referred [facility] [employer] Start: 05-30-2022 End: 05-30-2022 ambulatory [facility] Work Phone: Start: 05-30-2022 End: 05-30-2022 [facility] Start: 05-23-2022 End: 05-23-2022 ambulatory [facility] Work Phone: Start: 05-23-2022 End: 05-23-2022 [facility] Start: 05-23-2022 [facility] Start: 05-20-2022 End: 05-20-2022 Emergency department patient visit Abelardo Rios DO Work Phone: [facility] ED Comment on above: Dislodged gastrostom y tube (Primary Dx) Start: 05-16-2022 End: 05-16-2022 [facility] Start: 05-16-2022 [facility] Start: 05-09-2022 End: 05-09-2022 ambulatory [facility] Work Phone: Start: 05-09-2022 End: 05-09-2022 [facility] Start: 05-09-2022 [facility] Start: 05-03-2022 End: 05-03-2022 ambulatory [facility] Work Phone: Start: 05-03-2022 End: 05-03-2022 [facility] Start: 05-03-2022 [facility] Start: 04-26-2022 End: 04-26-2022 [facility] Start: 04-26-2022 [facility] Start: 04-18-2022 End: 04-18-2022 ambulatory [facility] Work Phone: Start: 04-18-2022 End: 04-18-2022 [facility] Start: 04-18-2022 [facility] Start: 04-14-2022 End: 04-14-2022 ambulatory [facility] Work Phone: Start: 04-14-2022 End: 04-14-2022 Departed Referred [facility] [employer] Start: 04-14-2022 Registered Referred [facility] [employer] Start: 04-11-2022 End: 04-11-2022 ambulatory [facility] Work Phone: Start: 04-11-2022 End: 04-11-2022 [facility] Start: 04-11-2022 Registered Referred [facility] [employer] Start: 04-04-2022 End: 04-04-2022 ambulatory [facility] Work Phone: Start: 04-04-2022 End: 04-04-2022 [facility] Start: 04-04-2022 Registered Referred [facility] [employer] Start: 03-28-2022 End: 03-28-2022 ambulatory [facility] Work Phone: Start: 03-28-2022 End: 03-28-2022 Departed Referred [facility] [employer] Start: 03-28-2022 Registered Referred [facility] [employer] Start: 03-21-2022 End: 03-21-2022 ambulatory [facility] Work Phone: Start: 03-21-2022 End: 03-21-2022 Departed Referred [facility] [employer] Start: 03-21-2022 Registered Referred [facility] [employer] Start: 03-14-2022 End: 03-14-2022 [facility] [facility] Start: 03-14-2022 Registered Referred [facility] Start: 2022 End: 2022 ambulatory [facility] Work Phone: Start: 2022 End: 2022 Departed Referred [facility] Start: 2022 Registered Referred [facility] Start: 02-28-2022 End: 02-28-2022 Departed Referred [facility] Start: 02-28-2022 Registered Referred [facility] Start: 02-21-2022 End: 02-21-2022 ambulatory [facility] Work Phone: Start: 02-21-2022 End: 02-21-2022 [facility] Start: 02-21-2022 Registered Referred [facility] Start: 02-14-2022 End: 02-14-2022 ambulatory [facility] Work Phone: Start: 02-14-2022 End: 02-14-2022 Departed Referred [facility] Start: 02-14-2022 Registered Referred [facility] Start: 02-07-2022 End: 02-07-2022 ambulatory [facility] Work Phone: Start: 02-07-2022 End: 02-07-2022 [facility]ed [facility] Start: 02-07-2022 Registered Referred [facility] Start: 01-31-2022 End: 01-31-2022 ambulatory [facility] Work Phone: Start: 01-31-2022 End: 01-31-2022 Departed Referred [facility] Start: 01-31-2022 Registered Referred [facility] Start: 01-24-2022 End: 01-24-2022 ambulatory [facility] Work Phone: Start: 01-24-2022 End: 01-24-2022 [facility] Start: 01-24-2022 Registered Referred [facility] Start: 01-17-2022 End: 01-17-2022 [facility] Start: 01-17-2022 [facility] Start: 01-10-2022 End: 01-10-2022 ambulatory [facility] Work Phone: Start: 01-10-2022 End: 01-10-2022 [facility] Start: 01-10-2022 [facility] Start: 01-04-2022 End: 01-04-2022 ambulatory [facility] Work Phone: Start: 01-04-2022 End: 01-04-2022 [facility] Start: 01-04-2022 [facility] Start: 12-27-2021 End: 12-27-2021 ambulatory [facility] Work Phone: Start: 12-27-2021 End: 12-27-2021 [facility] Start: 12-27-2021 Registered [facility] Start: 12-20-2021 End: 12-20-2021 ambulatory [facility] Work Phone: Start: 12-20-2021 End: 12-20-2021 [facility] Start: 12-20-2021 Registered [facility] Start: 12-13-2021 End: 12-13-2021 [facility] Start: 12-13-2021 Registered [facility] Start: 12-06-2021 End: 12-06-2021 ambulatory [facility] Work Phone: Start: 12-06-2021 End: 12-06-2021 Departed Referred [facility] Start: 12-06-2021 [facility] Start: 11-29-2021 End: 11-29-2021 ambulatory [facility] Work Phone: Start: 11-29-2021 End: 11-29-2021 [facility] Start: 11-29-2021 [facility] Start: 11-22-2021 End: 11-22-2021 [facility] Start: 11-22-2021 [facility] Start: 11-15-2021 End: 11-15-2021 [facility] Start: 11-15-2021 Registered Referred [facility] Start: 11-08-2021 End: 11-08-2021 [facility] Start: 10-25-2021 [facility] Start: 10-18-2021 Registered Referred [facility] Start: 10-11-2021 Registered Referred [facility] Start: 10-04-2021 Registered Referred [facility] Start: 09-28-2021 End: 09-28-2021 [facility] Start: 09-28-2021 Registered Referred [facility] Start: 09-20-2021 End: 09-20-2021 [facility] Start: 09-20-2021 Registered [facility] Start: 09-13-2021 End: 09-13-2021 Departed Referred [facility] Start: 09-13-2021 Registered Referred [facility] Start: 09-06-2021 End: 09-06-2021 Departed Referred [facility] Start: 09-06-2021 [facility] Start: 08-30-2021 End: 08-30-2021 Departed Referred [facility] Start: 08-30-2021 Registered Referred [facility] Start: 08-23-2021 End: 08-23-2021 [facility] Start: 08-23-2021 [facility] Start: 08-18-2021 End: 08-18-2021 Departed Referred [facility] Start: 08-18-2021 Registered [facility] Start: 08-16-2021 End: 08-16-2021 Departed Referred [facility] Start: 08-16-2021 Reg[facility] Start: 08-09-2021 End: 08-09-2021 Departed Referred [facility] Start: 08-02-2021 End: 08-02-2021 Departed Referred [facility] Start: 08-02-2021 Registered Referred [facility] Start: 07-26-2021 End: 07-26-2021 Departed Referred [facility] Start: 07-26-2021 Registered [facility] Start: 07-19-2021 End: 07-19-2021 [facility] Start: 07-19-2021 [facility] Start: 07-12-2021 End: 07-12-2021 [facility] Start: 07-05-2021 End: 07-05-2021 [facility]arted [facility] Start: 07-05-2021 [facility] Start: 06-28-2021 End: 06-28-2021 Departed [facility] Start: 06-28-2021 [facility] Start: 06-21-2021 End: 06-21-2021 Departed [facility] Start: 06-21-2021 [facility] Start: 06-14-2021 [facility] Start: 06-07-2021 End: 06-07-2021 Departed [facility] Start: 06-07-2021 [facility] Start: 05-31-2021 End: 05-31-2021 Departed [facility] Start: 05-31-2021 [facility] Start: 05-24-2021 End: 05-24-2021 Departed [facility] Start: 05-17-2021 [facility] Start: 05-15-2021 End: 05-15-2021 Emergency department [facility] Comment on above: PEG tube malfunction (HCC) (Primary Dx) Start: 05-14-2021 [facility] Start: 05-10-2021 Registered Referred [facility] Start: 05-03-2021 Registered Referred [facility] Start: 04-26-2021 Registered Referred [facility] Start: 04-19-2021 Registered Referred [facility] Start: 04-12-2021 Registered Referred [facility] Start: 04-07-2021 Registered Referred [facility] Start: 03-19-2021 End: 03-24-2021 Evaluation and management of inpatient Brady Desai DO Work Phone: [facility] Comment on above: Respiratory syncytia l virus (RSV) (Primary Dx); Hypoxia Start: 03-18-2021 End: 03-18-2021 Emergency department patient visit Boo Castro MD Work Phone: [facility] Comment on above: Respiratory syncytia l virus (RSV) (Primary Dx); Hypoxia Start: 10-30-2020 End: 10-30-2020 Emergency department patient visit Bethany Clemons MD Work Phone: [facility] Comment on above: Feeding tube dysfunc tion, initial encounter (Primary Dx) Start: 09-22-2020 End: 09-22-2020 Emergency department patient visit Elizabeth Burgess MD Work Phone: [facility] Comment on above: PEG tube malfunction (HCC) (Primary Dx) Start: 06-26-2020 End: 06-26-2020 Emergency department patient visit Abelardo Rios Work Phone: [facility] Comment on above: PEG tube malfunction (HCC) (Primary Dx) Start: 05-22-2019 End: 05-22-2019 Patient encounter procedure Jarvis Kendall MD Work Phone: [facility] Work Phone: Start: 05-22-2019 End: 05-22-2019 Pt evaluation Jarvis Kendall MD Work Phone: [facility] Work Phone: Start: 05-16-2019 End: 05-16-2019 Emergency department patient visit Elizabeth Burgess MD Work Phone: [facility] Comment on above: Contusion of right h ip, initial encounter (Primary Dx) Start: 08-15-2018 Evaluation and management of inpatient UNKNOWN PROVIDER [facility] Start: 07-08-2018 Evaluation and management of inpatient JRODAN OREILLY [facility] Start: 01-02-2003 End: 01-02-2003 Patient encounter procedure Beni Vera Work Phone: [facility] Start: 01-02-2003 Results Only Beni Vera Work Phone: [facility] Procedures Date Procedure Procedure Detail Performing Clinician [...] be not req revj gstrst trc Dejah Romeyes DO Work Phone: Start: 05-20-2022 Radiologic exam abdo men 1 view Dejah Romeyes DO Work Phone: Start: 08-18-2021 Urine culture [...] bacterial bl ood aerobic w/id isolates Brady Chiquita Desai DO Work Phone: Start: 03-19-2021 CULTURE, BLOOD 1 Brady Chiquita Desai DO Work Phone: Start: 03-19-2021 RESPIRATORY PANEL, MOLECULAR, WITH COVID-19 Brady Chiquita Desai DO Work Phone: Start: 03-19-2021 Basic metabolic pane l calcium total Brady Chiquita Espinosaheim DO Work Phone: Start: 03-19-2021 RBC morphology findi ng Nom (Bld) Brady Chiquita Desai DO Work Phone: Start: 03-19-2021 Radiologic exam ches t single view Brady Chiquita Desai DO Work Phone: Start: 03-19-2021 Ecg routine ecg w/le ast 12 lds w/i&r Brady Chiquita Desai DO Work Phone: Start: 03-18-2021 Antibody screen [...] EMDF, PT, BMP3M, PHOS3, MG3, CK3 #### [facility] [address] [place] [address] #### [email or web address] #### [employer] [facility] [address] [place] [address] Start: 07-27-2018 Microscopic examinat ion of blood, culture Comment on above: Order Comment: Speci men Source Comment:Blood Performed By: #### H EMDF, PT, BMP3M, PHOS3, MG3, CK3 #### [facility] [address] [place] [address] #### [email or web address] #### [employer] [facility] [address] [place] [address] Start: 07-19-2018 Microscopic examinat ion of blood, culture Comment on above: Order Comment: Speci men Source Comment:Blood Performed By: #### H EMDF, PT, BMP3M, PHOS3, MG3, CK3 #### [facility] [address] [place] [address] #### [email or web address] #### [employer] [facility] [address] [place] [address] Start: 01-02-2003 CONVERTED SURGICAL PATHOLOGY Beni Vera [...] for Adults (1 - 1-dose 75+ series) [facility] Start: 01-10-2027 DTaP/Tdap/Td vaccine (2 - Td or Tdap) DTaP/Tdap/Td vaccine (2 - Td or Tdap) [facility] Start: 01-10-2027 DTaP/Tdap/Td vaccine (2 - Td) DTaP/Tdap/Td vaccine (2 - Td) [facility] Work Phone: Start: 01-10-2027 DTaP/Tdap/Td Vaccine s (2 - Td or Tdap) DTaP/Tdap/Td Vaccines (2 - Td or Tdap) [facility] Start: 12-30-2024 Influenza vaccination Influenz a Vaccine (Season Ended) [facility] Start: 03-22-2024 Diabetes mellitus screening Diabetes Screening [facility] Start: 12-31-2023 COVID-19 Vaccine ( season) COVID-19 Vaccine ( season) [facility] Start: 12-31-2023 COVID-19 Vaccine ( season) COVID-19 Vaccine ( season) [facility] Start: 12-31-2023 COVID-19 Vaccine ( season) COVID-19 Vaccine ( season) [facility] Start: 12-31-2023 Influenza vaccination [facility] Start: 01-30-2023 Bacteria identified in Urine by Culture Urine Culture [facility] Start: 01-30-2023 [facility] Start: 12-30-2022 COVID-19 Vaccine ( season) COVID-19 Vaccine ( season) [facility] Start: 2022 Pneumococcal 0-64 ye ars Vaccine (2 of 2 - PPSV23) Pneumococcal 0-64 years Vaccine (2 of 2 - PPSV23) [facility] Start: 2022 Pneumococcal 0-64 ye ars Vaccine (2 of 2) Pneumococcal 0-64 years Vaccine (2 of 2) [facility] Work Phone: Start: 2022 Pneumococcal Vaccine : 65+ Years (2 of 2 - PCV) Pneumococcal Vaccine: 65+ Years (2 of 2 - PCV) [facility] Start: 12-30-2021 Influenza vaccination Influenza Vacc ine (#1) [facility] Start: 12-30-2020 Influenza vaccination [facility] Start: 12-31-2019 Influenza vaccination Flu vaccine (# 1) [facility] Work Phone: Start: 08-18-2019 A1C test (Diabetic o r Prediabetic) A1C test (Diabetic or Prediabetic) [facility] Work Phone: Start: 08-18-2019 HbA1c (Bld) [Mass fraction] A1C test (Diabetic or Prediabetic) [facility] Work Phone: Start: 08-18-2019 Hemoglobin A1c measurement A1C test (Diabetic or Prediabetic) [facility] Start: 05-22-2019 End: 05-22-2019 Appointment Appointment [facility] Work Phone: Start: 02-07-[address] [facility] Start: 02-07-[address] Lipid [address] [facility] Work Phone: Start: 12-30-2018 Influenza vaccination Flu vaccine (# 1) [facility] Work Phone: Start: 01-10-2018 Pneumococcal Vaccine : 50+ Years (2 of 2 - PCV) Pneumococcal Vaccine: 50+ Years (2 of 2 - PCV) [facility] Start: 01-10-2018 Pneumococcal Vaccine : 65+ Years (2 - PCV) Pneumococcal Vaccine: 65+ Years (2 - PCV) [facility] Start: 2017 RSV Immunization age d 60 or older (1 - 1-dose 60+ series) RSV Immunization aged 60 or older (1 - 1-dose 60+ series) [facility] Start: 2007 Colon cancer screen colonoscopy Colon cancer screen colonoscopy [facility] Work Phone: Start: 2007 Screening for malign ant neoplasm of colon Colon cancer screen colonoscopy [facility] Work Phone: Start: 2007 Shingles Vaccine (1 of 2) Shingles Vaccine (1 of 2) [facility] Start: 2007 Zoster Vaccines (1 o f 2) Zoster Vaccines (1 of 2) [facility] Start: 2002 Screening for malign ant neoplasm of colon Colon cancer screen colonoscopy [facility] Start: 1976 Hepatitis A Vaccines (1 of 2 - Risk 2-dose series) Hepatitis A Vaccines (1 of 2 - Risk 2-dose series) [facility] Start: 1975 Hepatitis C screening Hepatitis C Sc reening [facility] Start: 1969 COVID-19 Vaccine (1) COVID-19 Vaccin e (1) [facility] Start: 1969 Depression Monitoring Depression Mon itoring [facility] Start: 1969 Depression Screen Depression Screen [facility] Start: 1962 COVID-19 Vaccine (1) COVID-19 Vaccin e (1) [facility] Start: 1957 COVID-19 Vaccine (#1) COVID-19 Vacci ne (#1) [facility] Start: 1957 Annual wellness visit Medicare Initial Physical (IPPE) [facility] Start: 1957 Hepatitis B Vaccines (1 of 3 - 3-dose series) Hepatitis B Vaccines (1 of 3 - 3-dose series) [facility] Start: 1957 Lipid panel Lipid Panel [facility] Start: 1957 Screening for malign ant neoplasm of colon [facility] Basic metabolic 2000 panel - Serum or Plasma Basic Metabolic Panel Lab Routine Daily until discontinued starting 03/23/2021, [address] [facility] Work Phone: Comment on above: Daily until disconti nued starting 03/23/2021, 2 completed CBC W Auto Different ial panel - Blood CBC Auto Differential Lab Routine Daily until discontinued starting 03/23/2021, [address] [facility] Work Phone: Comment on above: Daily until disconti nued starting 03/23/2021, 2 completed End: 06-24-2024 CT Chest WO contrast [facility] Work Phone: Comment on above: Once for 1 Occurrenc es starting 06/24/2024 until 06/24/2024 Culture, Blood 2 Culture, Blood 2 Microbiology STAT 03/19/2021 6:[address] [facility] Work Phone: End: 03-20-2021 Culture, Respiratory Culture, Respiratory Microbiology Routine One Time for 1 Occurrences starting 03/20/2021 until 03/20/2021 [facility] Work Phone: Comment on above: One Time for 1 Occur rences starting 03/20/2021 until 03/20/2021 EKG 12 Lead EKG 12 Lead ECG STAT 03/18/2021 3:20 PM EST [facility] Work Phone: Feeding Tube Feeding Tube Pro cedures Routine 10/30/2020 2:22 PM EDT [facility] Work Phone: End: 09-22-2020 FL WATER SOLUBLE ENEMA W OR WO KUB FL WATER SOLUBLE ENEMA W OR WO KUB Imaging STAT Once for 1 Occurrences starting 09/22/2020 until 09/22/2020 [facility] Work Phone: Comment on above: Once for 1 Occurrenc es starting 09/22/2020 until 09/22/2020 End: 03-23-2021 Glucose [Mass/volume] in Serum or Plasma POCT GLUCOSE Point of Care Testing Routine Now Then Every 6hr for 7 Occurrences starting 03/21/2021 until 03/23/2021 [facility] Work Phone: Comment on above: Now Then Every 6hr f or 7 Occurrences starting 03/21/2021 until 03/23/2021 High Frequency Chest Wall Oscillation (HFCWO) High Frequency Chest Wall Oscillation (HFCWO) Respiratory Care Routine (respiratory use only) until discontinued starting 03/22/2021 [facility] Work Phone: Comment on above: (respirato ry use only) until discontinued starting 03/22/2021 End: 03-20-2021 Legionella Antigen, Urine Legionella Antigen, Urine Microbiology Routine One Time for 1 Occurrences starting 03/20/2021 until 03/20/2021 [facility] Work Phone: Comment on above: One Time for 1 Occur rences starting 03/20/2021 until 03/20/2021 Microscopic examinat ion of blood, culture Culture, Blood Microbiology STAT 03/19/2021 6:26 PM EST [facility] Work Phone: End: 03-20-2021 Microscopic observation [Identifier] in Unspecified specimen by Gram stain Gram Stain Microbiology Routine Once for 1 Occurrences starting 03/20/2021 until 03/20/2021 [facility] Work Phone: Comment on above: Once for 1 Occurrenc es starting 03/20/2021 until 03/20/2021 Oxygen therapy [[facility] Data Set] Initiate Oxygen Therapy Protocol Respiratory Care Routine Daily until discontinued starting 03/20/2021 [facility] Work Phone: Comment on above: Daily until disconti nued starting 03/20/2021 Patient Education \\cps-sql1\\CPS_ PtEducati on\\CDC_FALL_PREVENTION. pdf, \\cps-sql1\\CPS_PtEducati on\\quitting_smoking_[id number].pdf [facility] Work Phone: RT Communication Order RT Commun ication Order Respiratory Care STAT Daily until discontinued starting 03/18/2021 [facility] Work Phone: Comment on above: Daily until disconti nued starting 03/18/2021 RT Communication Order RT Commun ication Order Respiratory Care Routine Daily until discontinued starting 03/20/2021 [facility] Work Phone: Comment on above: Daily until disconti nued starting 03/20/2021 End: 03-20-2021 STREP PNEUMONIAE ANTIGEN STREP PNEUMONIAE ANTIGEN Microbiology Routine One Time for 1 Occurrences starting 03/20/2021 until 03/20/2021 [facility] Work Phone: Comment on above: One Time for 1 Occur rences starting 03/20/2021 until 03/20/2021 End: 03-18-2021 Urinalysis Urinalysis Lab STAT One Time for 1 Occurrences starting 03/18/2021 until 03/18/2021 [facility] Work Phone: Comment on above: One Time for 1 Occur rences starting 03/18/2021 until 03/18/2021 End: 03-18-2021 Urine Drug Screen Urine Drug Screen Lab STAT One Time for 1 Occurrences starting 03/18/2021 until 03/18/2021 [facility] Work Phone: Comment on above: One Time for 1 Occur rences starting 03/18/2021 until 03/18/2021 End: 09-22-2020 XR ABDOMEN (KUB) (SINGLE AP VIEW) XR ABDOMEN (KUB) (SINGLE AP VIEW) Imaging Routine Once for 1 Occurrences starting 09/22/2020 until 09/22/2020 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 01-10-2017 pneumococcal polysaccharide vaccine, 23 valent Elizabeth Burgess MD Work Phone: [facility] 01-10-2017 tetanus toxoid, redu delia diphtheria toxoid, and acellular pertussis vaccine, adsorbed Elizabeth Burgess MD Work Phone: [facility] Work Phone: Payers Date Payer Category Payer Self-pay [id number] 2019 Medicaid [id number] 2019 Medicaid [id number] 2018 Private Health Insurance [id number] 2018 Private Health Insurance [facility] [address] [facility] xxxxxxxxx 2018-Present [phone] [address] [place] [address] xxxxxxxxx [id number] 1957 Unknown [id number] 1957 Unknown [id number] Private Health Insurance Unknown [id number] Unknown [id number] Unknown [id number] Unknown [id number] 462 Unknown [id number] 462 Unknown [id number] 462 Unknown [id number] 462 Unknown [id number] 462 Unknown [id number] 2..840.1.840171.3.579.2. 462 Unknown [id number] 2.16.840.1.584864.3.579.2. 462 Unknown [id number] 2.16.840.1.944115.3.579.2. 462 Unknown [id number] 2.16840.1.975556.3.579.2. 462 Unknown [id number] 2.16.840.1.053931.3.579.2. 462 Unknown [id number] 2.16.840.1.071135.3.579.2. 462 Unknown [id number] 2.16.840.1.010220.3.579.2. 462 Unknown [id number] 2.16.840.1.766585.3.579.2. 462 Unknown [id number] 2.16.840.1.560341.3.579.2. 462 Unknown [id number] 2.16.840.1.361198.3.579.2. 462 Unknown [id number] 2.16.840.1.598804.3.579.2. 462 Unknown [id number] 2.16.840.1.012981.3.579.2. 462 Unknown [id number] 2.16.840.1.293905.3.579.2. 462 Unknown [id number] 2.16.840.1.479861.3.579.2. 462 Unknown [id number] 2.16840.1.208292.3.579.2. 462 Unknown [id number] 2.16840.1.951314.3.579.2. 462 Unknown [id number] 2.840.1.266445.3.579.2. 462 Unknown [id number] 2.840.1.156804.3.579.2. 462 Unknown [id number] 2.840.1.288236.3.579.2. 462 Unknown [id number] 2.840.1.535713.3.579.2. 462 Unknown [id number] 2.16840.1.640634.3.579.2. 462 Unknown [id number] 2.840.1.773006.3.579.2. 462 Unknown [id number] 2.16840.1.236641.3.579.2. 462 Unknown [id number] 2.16840.1.497569.3.579.2. 462 Unknown [id number] 2.16.840.1.362997.3.579.2. 462 Unknown [id number] 2.16840.1.753181.3.579.2. 462 Unknown [id number] 2.16.840.1.166723.3.579.2. 462 Unknown [id number] 2.16.840.1.833841.3.579.2. 462 Unknown [id number] 2.16.840.1.589818.3.579.2. 462 Unknown [id number] 2.16.840.1.933798.3.579.2. 462 Unknown [id number] 2.16.840.1.351774.3.579.2. 462 Unknown [id number] 2.16.840.1.004203.3.579.2. 462 Unknown [id number] 2.16.840.1.645895.3.579.2. 462 Unknown [id number] 2.16.840.1.102976.3.579.2. 462 Unknown [id number] 2.16.840.1.880249.3.579.2. 462 Unknown [id number] 2.840.1.623254.3.579.2. 462 Unknown [id number] 2.16840.1.184689.3.579.2. 462 Unknown [id number] 2.840.1.951322.3.579.2. 462 Unknown [id number] 2.16840.1.791073.3.579.2. 462 Unknown [id number] 2.16.840.1.945319.3.579.2. 462 Unknown [id number] 2.16840.1.431031.3.579.2. 462 Unknown [id number] 2.16840.1.030788.3.579.2. 462 Unknown [id number] 2.16.840.1.348696.3.579.2. 462 Unknown [id number] 2.16.840.1.038707.3.579.2. 462 Unknown [id number] 2.16.840.1.896791.3.579.2. 462 Unknown [id number] 2.16.840.1.094659.3.579.2. 462 Unknown [id number] 2.16.840.1.178123.3.579.2. 462 Unknown [id number] 2.16.840.1.961160.3.579.2. 462 Unknown [id number] 2.16.840.1.260473.3.579.2. 462 Unknown [id number] 2.16.840.1.848370.3.579.2. 462 Unknown [id number] 2.16.840.1.262387.3.579.2. 462 Social History Date Type Detail Facility Tobacco smoking status NHIS Unknown if ever smoked [facility] Work Phone: Start: 1955 Sex Assigned At Not on file [facility] Work Phone: Start: 11-05-2018 End: 06-26-2020 Tobacco smoking status NHIS Former smoker [employer] Phone: End: 02-06-2016 History of tobacco use Current smoker [employer] Phone: End: 02-06-2016 History of tobacco use Cigar Smoker [employer] Phone: Start: 02-05-2018 End: 06-26-2020 Tobacco use and exposure Never used [employer] Phone: Start: 06-26-2020 End: 05-20-2022 Alcohol intake Current drinker of alcohol (finding) [employer] Phone: Start: 07-08-2018 Alcohol Comment 2 times per wo rk, occasionally liquor [employer] Phone: Start: 05-10-2022 End: 05-20-2022 Exposure to SARS-CoV-2 (event) Not sure [facility] Work Phone: Start: 09-22-2020 End: 05-20-2022 Alcohol intake [employer] [employer] Start: 1955 Sex Assigned At Male [facility] End: 02-06-2016 History of tobacco use Cigarette Smoker [employer] Start: 05-20-2022 End: 10-02-2023 Tobacco use panel [facility] How often to you have a drink containing alcohol? Never [facility] How many standard drinks containing alcohol do you have on a typical day? Patient does not drink [facility] Start: 11-29-2021 End: 08-16-2024 Sex Male (finding) [facility] Tobacco smoking status NHIS Unknown if ever smoked [facility] Work Phone: NEGATED: Highlighted rowStart: 05-22-2019 End: 05-22-2019 Alcohol use Alcohol use [facility] Work Phone: NEGATED: Highlighted rowStart: 05-22-2019 End: 05-22-2019 Assertion Current some day smoker [facility] Work Phone: NEGATED: Highlighted rowStart: 05-22-2019 End: 05-22-2019 Details of drug misuse behavior Details of drug misuse behavior [facility] Work Phone: NEGATED: Highlighted rowStart: 05-22-2019 End: 05-22-2019 Tobacco use and exposure Tobacco use and exposure [facility] Work Phone: Clinical Notes 03-18-2021 to 05-03-2024 Telephone Encounter - Aravind Wallace - 05/03/2024 5:29 PM ESTTelephone Encounter - Aravind Wallace - 05/03/2024 5:29 PM ZACHARY Baptiste - 11/22/2023 11:30 AM EDTDischarge Instr - [facility] Note Date & Type Note Facility 05-03-2024 Telephone encounter Note Gissel is calling to let Dr. Burgos know that the medication he prescribed he not certified, she is going to fax the information to the office. [phone] [facility] 05-03-2024 Miscellaneous Notes Gissel is calling to let Dr. Katsaros know that the medication he prescribed he not certified, she is going to fax the information to the office. [phone] documented in this encounter [facility] 11-22-2023 History of Presen t illness Narrative Images from the original note were not included. Speech-Language Pathology SPEECH LANGUAGE PATHOLOGY [facility] Modified Barium Swallow Study [...] despite effort. 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 Frequency: Per treating LODGE ATTENDANT Barriers: large osteophytes, bridging with anterior projection [...] MBSS?: No, unable to locate in [facility] Current Diet: Puree diet with ?liquid (no information from [place]) Textures tested: - thin liquid, (cup edge) - mildly thick liquid, (cup edge) - puree, (teaspoon) Patient position: lateral Past Medical History: Past Medical History: Diagnosis Date TREVER (acute kidney injury) (CMS/HCC) ([facility]) Alcohol abuse 07/08/2018 Anxiety C1 spinal cord injury (CMS/HCC) ([facility]) Depression Fall 06/2018 Schizophrenia ([facility]) Past Surgical History: Past Surgical History: Procedure Laterality Date CERVICAL FUSION 07/09/2014 C2-6 cervical fusion GASTROSTOMY TUBE PLACEMENT 07/13/2018 TRACHEOSTOMY 07/13/2018 Admission Diagnosis: Patient Active Problem List Diagnosis Date Noted Respiratory syncytial virus (RSV) 03/22/2021 Hypoxia 03/19/2021 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[facility]) 08/16/2018 Chronic latent schizophrenia ([facility]) 08/15/2018 Prolonged Q-T interval on ECG 08/15/2018 Abdominal wall abscess 08/15/2018 Central cord syndrome ([facility]/HCC) ([facility]) 08/15/2018 Respiratory failure after trauma ([facility]) 08/15/2018 Pressure ulcer of sacral region, stage 2 ([facility]) 08/09/2018 Urinary retention 07/28/2018 Acute respiratory failure with hypoxia ([facility]) 07/26/2018 Mild bibasilar atelectasis 07/26/2018 Hospital-acquired pneumonia 07/26/2018 Bilateral pleural effusion 07/26/2018 Ileus (CMS/HCC) ([facility]) 07/23/2018 TREVER (acute kidney injury) ([facility]) 07/23/2018 Hypokalemia 07/21/2018 Vertebral artery occlusion, bilateral 07/11/2018 Vitamin D insufficiency 07/10/2018 Alcohol abuse 07/08/2018 Closed wedge compression fracture of first thoracic vertebra ([facility]) 07/08/2018 Traumatic nondisp spondylolisthesis of C3 vertebra with closed fx, initial encounter ([facility]) 07/08/2018 Closed fracture dislocation of cervical spine ([facility]) 07/08/2018 Pain: Pt denies any current pain. Reason for current admission: Pt with h/o of PEG and trach from 2019. Pt is currently decannulated. 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 Noted very large connective [...] able to eat by mouth. Therapy Time LODGE ATTENDANT Individual Minutes Time In: 1150 Time Out: 1215 Minutes: 25 ZACHARY Sun documented in this encounter [facility] 10-02-2023 Emergency department Note [facility] at bedside at this time Mami Lantigua RN 10/02/23 1427 [facility] 10-02-2023 Emergency department Note [facility] at bedside at this time Mami Lantigua RN 10/02/23 1427 This RN gave report to Marnie at [facility] at this time Mami Lantigua RN 10/02/23 1358 This RN went to evaluate patient, was on 2L o2 and does not wear at baseline, plan is dc, this RN turned o2 off to trial patient, spo2 monitor on Mami Lantigua RN 10/02/[address] cart Eloisa Alfaro RN 10/02/23 1043 Emergency Department Encounter [facility] ED Patient: Kathya Hooper : [...] mis-transcribed.) Fei Farooq MD Acute Care [facility] Fei Farooq MD 10/02/23 1129 Pt was brought in via [facility] from [facility] for Left sided facial droop. Per EMS nurse is new and does not know patient very well but he is A&O x 2 at baseline. Per EMS the nurse states it was 20 mins ago. Contacted nurse that was caring for him and she states that was the first time she has seen him for that day, shift nurse manager did not report any problems. EMS [...] schizophrenia. BS 131. documented in this encounter [facility] 10-02-2023 Emergency department Note This RN gave report to Marnie at [facility] at this time Mami Lantigua RN 10/02/23 1358 [facility] 10-02-2023 Emergency department Note This RN went to evaluate patient, was on 2L o2 and does not wear at baseline, plan is dc, this RN turned o2 off to trial patient, spo2 monitor on Mami Lantigua RN 10/02/23 1325 [facility] 10-02-2023 Emergency department Note Pt to ct via cart Eloisa Alfaro RN 10/02/23 1043 [facility] 10-02-2023 Emergency department Triage note Pt was brought in via [facility] from [facility] for Left sided facial droop. Per EMS nurse is new and does not know patient very well but he is A&O x 2 at baseline. Per EMS the nurse states it was 20 mins ago. Contacted nurse that was caring for him and she states that was the first time she has seen him for that day, shift nurse manager did not report any problems. EMS [...] facility. Hx of schizophrenia. BS 131. T [facility] 10-02-2023 Physician Emergency department Note Emergency Department Encounter [facility] ED Patient: Kathya Hooper : [...] mis-transcribed.) Fei Farooq MD Acute Care [facility] Fei Farooq MD 10/02/23 1129 T [employer] Work Phone: 05-20-2022 Emergency department Note Report called to intermediate. Copy of Xray report sent with discharge packet Gary Ghosh RN 05/20/222007 [employer] 05-20-2022 Emergency department Note Report called to intermediate. Copy of Xray report sent with discharge packet Gary Ghosh RN 05/20/222007 Emergency Department Encounter [facility] ED Patient: Kathya Hooper : 1955 Date of Evaluation: 05/20/2022 ED Supervising Physician: Abelardo Rios DO I independently examined and evaluated Kathya Hooper. This will serve as my Supervisory note as the criminal analyst of record and shared attestation. I did [...] dictating provider for clarification.) Abelardo Rios DO [facility] [place] [facility] Abelardo Rios DO 05/20/222014 documented in this encounter [facility] 05-20-2022 Miscellaneous Notes Associated Order(s): Feeding Tube Replacement Procedure Feeding Tube Replacement Performed by: Dejah Hazel DO Authorized by: Abelardo Rios DO Consent: Consent obtained: Verbal Consent given by: Patient [place] protocol: Patient identity confirmed: Verbally with patient [...] DO Resident 05/20/221931 documented in this encounter [facility] 05-20-2022 Note Associated Order(s): Feeding Tube Replacement Procedure Feeding Tube Replacement Performed by: Dejah Hazel DO Authorized by: Abelardo Rios DO Consent: Consent obtained: Verbal Consent given by: Patient [place] protocol: Patient identity confirmed: Verbally with patient [...] immediate complications Dejah Hazel DO Resident 05/20/221931 [employer] Phone: 05-20-2022 Note Associated Order(s): Feeding Tube Replacement Procedure Feeding Tube Replacement Performed by: Dejah Hazel DO Authorized by: Abelardo Rios DO Consent: Consent obtained: Verbal Consent given by: Patient [place] protocol: Patient identity confirmed: Verbally with patient [...] immediate complications Dejah Hazel DO Resident 05/20/221931 [employer] Phone: 05-20-2022 Physician Emergency department Note Emergency Department Encounter [facility] ED Patient: Kathya Hooper : 1955 Date of Evaluation: 05/20/2022 ED Supervising Physician: Abelardo Rios DO I independently examined and evaluated Kathya Hooper. This will serve as my Supervisory note as the criminal analyst of record and shared attestation. I did [...] for clarification.) Abelardo Rios DO Acute Care [facility] Abelardo Rios DO 05/20/222014 [facility] [employer] Phone: 03-24-2021 Note Hospitalist Discharg e Summary Kathya Maya Sandie : 1955 Admit date: 03/19/2021 Discharge date: 03/24/21 Admitting Physician: Rafa Michel MD Primary Care Physician: No primary care provider on file. Discharge Diagnosis: Acute hypoxic respiratory failure Patchy infiltrate and Pneumonia. Small left pleural effusion. Schizophrenia Debility Hospital Course: Patient is a 66 years old male admitted with respiratory failure. Was Found to have Pneumonia. Treated with antibiotics. He resides in [facility]. He was stablized and discharged Diet NPO [...] Result Date: 03/18/2021 [id number] Tomography ACCESSION EXAM DATE/TIME PROCEDURE ORDERING PROVIDER [id number] 03/18/2021 16:26 EST CTA Head/Neck w/ + w/o [id number] -alyson CASTRO CPT code 81653 17549 Q9967 Reason For Exam (CTA Head/Neck w/ [...] airway at the (more content not included)... [facility] 03-24-2021 Hospital course Narrative Hospitalist Discharge Summary [...] Pneumonia. Treated with antibiotics. He resides in [facility]. He was stablized and discharged Diet NPO [...] Tomography ACCESSION EXAM DATE/TIME PROCEDURE ORDERING PROVIDER [id number] 03/18/2021 16:26 EST CTA Head/Neck w/ + w/o [id number] -MATTHEW alyson BOO CPT code 33995 30176 Q9967 Reason For Exam (CTA Head/Neck w/ [...] (PE study) Result Date: 03/18/2021 [id number] Computed Tomography ACCESSION EXAM DATE/TIME PROCEDURE ORDERING PROVIDER [id number] 03/18/2021 16:27 EST CTA Chest w/ + w/o [id number] Alyson ARCHIBALD CPT code 13475 Q9967 Reason For Exam (CTA Chest w/ [...] Radiology ACCESSION EXAM DATE/TIME PROCEDURE ORDERING PROVIDER [id number] 03/19/2021 17:10 EST CR Chest Portable 714970 -BRADY DESAI CPT code 97685 Reason For Exam (CR Chest Portable) hypoxia [...] Radiology ACCESSION EXAM DATE/TIME PROCEDURE ORDERING PROVIDER [id number] 03/18/2021 15:30 EST CR Chest Portable [id number] -BOO CASTRO CPT code 74817 Reason For Exam (CR Chest Portable) sob, [...] Contact Information Primary Emergency Contact: Jason Hooper [facility] Relation: Parent Past Surgical History: Past Surgical History: Procedure Laterality Date CERVICAL FUSION 07/09/2014 C2-6 cervical fusion GASTROSTOMY TUBE PLACEMENT 07/13/2018 TRACHEOSTOMY 07/13/2018 Immunization History: Immunization History Administered Date(s) Administered Pneumococcal Polysaccharide ([id number]) 01/10/2017 Tdap (Boostrix, Adacel) 01/10/2017 Active Problems: Patient Active Problem List Diagnosis Code Closed fracture dislocation of cervical spine ([facility]) S12.9XXA Traumatic nondisp spondylolisthesis of C3 vertebra with closed fx, initial encounter ([facility]) S12.231A Closed wedge compression fracture of first thoracic vertebra ([facility]) S22.010A Central cord syndrome ([facility]) S14.129A Chronic latent schizophrenia ([facility]) F21 Alcohol abuse F10.10 Respiratory failure after trauma ([facility]) J96.90 Vitamin D insufficiency E55.9 Vertebral artery occlusion, 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 Hypokalemia E87.6 Ileus ([facility]) K56.7 TREVER (acute kidney injury) ([facility]) N17.9 Acute respiratory failure with hypoxia ([facility]) J96.01 Hospital-acquired pneumonia J18.9, Y95 Bilateral pleural effusion J90 Mild bibasilar atelectasis J98.11 Urinary retention R33.9 Prolonged Q-T interval on ECG R94.31 Pressure ulcer of sacral region, stage 2 ([facility]) L89.152 Abdominal wall abscess L02.211 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[facility]) K65.4 Hypoxia R09.02 Respiratory syncytial virus (RSV) [...] MENTAL STATUS:} IV Access: { CHRIS IV ACCESS:623252388} Nursing Mobility/ADLs: Walking {CHP DME ADLs:370918510} Transfer {CHP DME ADLs:149873571} Bathing {CHP DME ADLs:229255960} Dressing {CHP DME ADLs:824700978} Toileting {CHP DME ADLs:444776843} Feeding {CHP DME ADLs:069304737} Cadmium Liquor Maker {CHP DME ADLs:619096720} Med Delivery { CHRIS MED Delivery:754090486} Wound Care Documentation and Therapy: Negative Pressure Wound Therapy Abdomen Left (Active) Number of days: 947 Wound Sacrum Mid (Active) Number of days: Elimination: Continence: Bowel: {YES / NO:} Bladder: {YES / NO:} Urinary Catheter: {Urinary Catheter:602622161} Colostomy/Ileostomy/Ileal Conduit: {YES / NO:} Date of Last BM: No intake or output data in the 24 hours ending 03/24/21 1013 I/O last 3 completed shifts: In: 660 [NG/GT:660] Out: - Safety Concerns: { CHRIS Safety Concerns:521961858} Impairments/Disabilities: { CHRIS Impairments/Disabilities:97634611 3} Nutrition Therapy: Current Nutrition Therapy: { CHRIS Diet List:824841153} Routes of Feeding: {CHP DME Other Feedings:390044817} Liquids: {[employer]arnett Machine Operator Helper liquid thickness:24534} Daily Fluid Restriction: {CHP DME Yes amt example:492271296} Last Modified Barium Swallow with Video (Video Swallowing Test): {Done Not Done Date:} Treatments at the Time of Hospital Discharge: Respiratory Treatments: Oxygen Therapy: {Therapy; copd oxygen:10106} Ventilator: {[facility] Vent List:490983424} Rehab Therapies: {THERAPEUTIC INTERVENTION:2897770726} Weight Bearing Status/Restrictions: {[facility] Weight Bearin} Other Medical Equipment (for information only, NOT a DME order): {EQUIPMENT:565633138} Other Treatments: Patient's personal belongings (please select all that are sent with patient): {CHP DME Belongings:567865050} RN SIGNATURE: {Esignature:465365255} CASE MANAGEMENT/SOCIAL WORK SECTION Inpatient Status Date: Readmission Risk Assessment Score: Readmission Risk Risk of Unplanned Readmission: 25 Discharging to Facility/ Agency Name: [facility] Address: [address] [place] [address] Dialysis Facility (if applicable) Name: Address: Dialysis Schedule: Phone: Fax: Mountain Services Manager/Insurance Sales Supervisor signature: PHYSICIAN SECTION Prognosis: Good Condition at Discharge: Stable Rehab Potential (if transferring to Rehab): Good Recommended Labs or Other Treatments After Discharge: Physician Certification: I certify the above information and transfer of Kathya Hooper is necessary for the continuing treatment of the diagnosis listed and that he requires [facility] Facility for greater 30 days. Update Admission [...] loss Fluid Accumulation: No significant fluid accumulation Frame Table Operator Strength: Not Performed Estimated Daily Nutrient Needs: Energy (kcal): 5203-8118 (25-30 kcal/kg IBW); Weight Used for Energy Requirements: [place] (86.2 kg) Protein (g): 86-103 (1.0-1.2 g protein/kg IBW); Weight Used for Protein Requirements: [place] (86.2 kg) Fluid (ml/day): per MD. At [...] on 03/02/21, October weight= 185.5# on 01/29/21) Florence Body Weight: 190 lbs; % [place] Body Weight 97.8 % BMI: 24 Adjusted [...] Skin, Weight Discharge Planning: Enteral Nutrition Contact: *[phone] Images from the original note were not included. Hospitalist Progress Note 03/23/2021 9:27 AM Subjective: Admit Date: 03/19/2021 PCP: No primary care provider on file. Room#: 077/2582 Patient seen and examined. Laying in bed. [...] PLT 136* 158 211 BMP: Recent Labs 03/21/2115503/23/21 0348 NA 136 142 K 3.4* 3.9 [...] from the original note were not included. [facility], Pulmonary Critical Care and Sleep Medicine [address] [place] [address] Patient - Kathya Hooper, Age - 66 y.o. - 1955 Room Number - 111/3512 Consulting - Rafa Michel MD Primary Care Physician - No primary care provider on file. [id number] Date of Admission - 03/19/2021 3:52 PM [...] from the original note were not included. [facility], Pulmonary Critical Care and Sleep Medicine [address] [place], [place] [id number] Patient - Kathya Hooper, Age - 66 [...] mg Oral Daily LABS: CBC: Recent Labs 03/19/21170903/21/21 0156 03/22/21 0020 WBC 9.1 7.1 13.3* RBC 4.23* 3.91* 3.93* HGB 13.1 11.9* 12.4* HCT 38.5* 35.4* 35.9* MCV 91.1 90.6 91.2 RDW 13.0 13.1 12.8 PLT 163 136* 158 BMP: Recent Labs 03/19/21170903/20/21 0023 03/21/21 0156 NA 137 137 136 [...] y.o. - 1955 Room Number - 465/4651 [facility] - [address] Date of Admission - 03/19/2021 3:52 PM [...] Date 03/21/21 0000 - 03/21/21 2359 Shift 6626-4403 1947-2265 6351-1407 24 Hour Total INTAKE NG/GT(mL/kg) 542(6.4) 542(6.4) [...] included. Hospitalist Progress Note 03/21/2021 9:41 AM [phone]: Please page me for patient care issues. [phone]: Please page IMS night Hospitalist for any [...] Trach PEG 07/13/2018. Presented from SNF to [facility] ED with worsening SOB. Evaluated in [...] loss Fluid Accumulation: No significant fluid accumulation Frame Table Operator Strength: Not Performed Estimated Daily Nutrient Needs: Energy (kcal): 6280-1804 (25-30 kcal/kg IBW); Weight Used for Energy Requirements: [place] (86.2 kg) Protein (g): 86-103 (1.0-1.2 g protein/kg IBW); Weight Used for Protein Requirements: [place] (86.2 kg) Fluid (ml/day): per MD. At facility receivin mL free water daily from EN and flushes; Method Used for Fluid Requirements: Other (Comment) Nutrition Related Findings: Massimo score= 15. No skin breakdown or edema noted. S/p Trach/PEG, per LODGE ATTENDANT note, does not take any food, drink [...] on 03/02/21, October weight= 185.5# on 01/29/21) Florence Body Weight: 190 lbs; % [place] Body Weight 97.8 % BMI: 23.9 BMI [...] Nutrition Contact: 2430 Speech Language Pathology Facility/Department: [facility] 4S TELEMETRY CLINICAL BEDSIDE SWALLOW EVALUATION NAME: Kathya [...] A 03/20/2021 11:57 AM Spoke with KRISTY Kalyani. Updated her on plan of care. I asked about his history, pt had a severe spinal cord injury 2.5 yrs ago. Family unsure what happened. Stated he was drinking, and known to "slam his head" against "things". Kalyani states that she is the only family [phone] Images from the original note were not included. Hospitalist Progress Note 03/20/2021 9:58 AM [phone]: Please page me for patient care issues. [phone]: Please page IMS night Hospitalist for any [...] planning: TBD . documented in this encounter [facility] Work Phone: 03-18-2021 History of Presen t illness Narrative NIF -20 [address] encounter [facility] Work Phone: 03-18-2021 Hospital Discharg Boo Stringer MD - 03/18/2021 Mr. Hooper was seen at the [facility] emergency department for low oxygen levels. [...] cannot be sent through Care Everywhere.Viral Infections ([place])documented in this encounter [facility] Work Phone: Evaluation [...] Work Phone: Evaluation noteNo assessment information available [facility] Work Phone: Evaluation note* Diagnosis Dyspnea, unspecified type- Primary documented in this encounter [facility]* Diagnosis Dysphagia, oropharyngeal phase Feeding difficulties Feeding difficulties and mismanagement documented in this encounter [facility]* Diagnosis Dysphagia, oropharyngeal phase- Primary Feeding difficulties Feeding difficulties and mismanagement Dysphagia, oropharyngeal phase Feeding difficulties Feeding difficulties and mismanagement documented in this encounter [facility]* Diagnosis Dislodged gastrostomy tube- Primary documented in this encounter [facility]* Diagnosis Chronic cough Cough documented in this encounter [facility]* Diagnosis Chronic cough- Primary Cough Chronic cough Cough [facility]* Attachments The following attachments cannot be sent through Care Everywhere. * PEG (Percutaneous Endoscopic Gastrostomy): Post-op ([place]) [facility]* Attachments The following attachments cannot be sent through Care Everywhere. * Feeding Tube: General Info ([place]) documented in this [facility] Work Phone: Hospital Discharge instructions* Instructions* Mary Cochran PA-C - 05/15/2021 Please return to the ED if you have any new or worsening symptoms. documented in this [facility] Work Phone: Hospital Discharge instructions* Attachments The following attachments cannot be sent through Care Everywhere. * Hip Pain ([place]) * Contusion ([place]) documented in this [facility] Work Phone: Hospital Discharge instructions* Attachments The following attachments cannot be sent through Care Everywhere. * Shortness of Breath (Dyspnea) Discharge Instructions ([place]) [facility] Attachments The following attachments cannot be sent through Care Everywhere. * How to Care for Your Gastrostomy Tube ([place]) [facility]No reason for referral information availableWAvita [facility] Work Phone: Reason for visit Narrative* Imaging (Routine) - Closed Specialty Diagnoses / Procedures Referred By Soo t Referred To Contact Radiology Diagnoses Chronic cough Procedures CT chest wo IV contrast Rashaad Smith APRN - SIM [id number] [address] Phone: tel: fax: Referral ID Status Reason Start Date Expiration Date Visits Re quested Visits Authorized [id number] Closed 06/12/2024 06/12/2025 1 1 [facility] Summary Purpose Family History No Family History Records FoundNo Family History Records FoundThere may be information available, but it has not been provided by the sender.No Family History Records FoundNo Family History Records FoundNo Family History Records FoundNo Family History Records Found Advance Directives No Advanced Directives Records FoundDocuments on File Type Date Recorded Patient Frame Trimmer Expl anation ACP-Advance Directive ACP-Advance Directive 08/07/2018 1:53 PM ACP-Power of Sociocultural Anthropology Professor Latest Code Status on File Code Status Date Activated Date Inactivated Comments Full Code 08/15/2018 8:27 PM 08/22/2018 4:31 PM Full Code 08/15/2018 8:12 PM 08/15/2018 8:27 PM Full Code 07/08/2018 8:28 PM 08/01/2018 2:39 PM Documents on File Type Date Recorded Patient Frame Trimmer Expl anation ACP-Advance Directive ACP-Power of Sociocultural Anthropology Professor ACP-Advance Directive 08/07/2018 1:53 PM Latest Code Status on File Code Status Date Activated Date Inactivated Comments Full Code 03/20/2021 12:17 AM Full Code 08/15/2018 8:27 PM 08/22/2018 4:31 PM Documents on File Type Date Recorded Patient Frame Trimmer Expl anation ACP-Advance Directive ACP-Power of Sociocultural Anthropology Professor ACP-Advance Directive 03/26/2021 9:48 AM ACP-Advance Directive 08/07/2018 1:53 PM Latest Code Status on File Code Status Date Activated Date Inactivated Comments Full Code 03/20/2021 12:17 AM 03/24/2021 3:23 PM Documents on File Type Date Recorded Patient Frame Trimmer Expl anation Advance Directives and Livin g Will Advance Directives and Livin g Will 08/07/2018 1:53 PM Power of Sociocultural Anthropology Professor Documents on File Type Date Recorded Patient Frame Trimmer Expl anation Advance Directives and Livin g Will 05/23/2022 10:48 AM Advance Directives and Livin g Will 03/19/2021 Documents on File Type Date Recorded Patient Frame Trimmer Expl anation Advance Directives and Living Will 03/19/2021 Documents on File Type Date Recorded Patient Frame Trimmer Expl 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 * Feeding Tube: General Info ([place]) documented in this encounter Assessments Diagnosis PEG [...] Complaint and Reason for Visit Chief Complaint RETIREMENT LABWORK RETIREMENT LAB WORK RETIREMENT LABWORK RETIREMENT LABWORK RETIREMENT LABWORK RETIREMENT LAB WORK RETIREMENT LABWORK RETIREMENT LABWORK RETIREMENT LABWORK RETIREMENT LABWORK RETIREMENT LABWORK RETIREMENT LAB WORK RETIREMENT LABWORK NURING HOME LABWORK RETIREMENT LABWORK RETIREMENT LAB WORK RETIREMENT LABWORK Chief Complaint RETIREMENT LABWORK RETIREMENT LABWORK RETIREMENT LABWORK RETIREMENT LAB WORK RETIREMENT LABWORK NURING HOME LABWORK RETIREMENT LABWORK RETIREMENT LAB WORK RETIREMENT LABWORK RETIREMENT LABWORK RETIREMENT LAB WORK RETIREMENT LAB WORK RETIREMENT BLOOD WORK RETIREMENT LABWORK RETIREMENT LAB WORK Chief Complaint RETIREMENT LABWORK RETIREMENT LABWORK RETIREMENT LAB WORK RETIREMENT LABWORK NURING HOME LABWORK RETIREMENT LABWORK RETIREMENT LAB WORK RETIREMENT LABWORK RETIREMENT LABWORK RETIREMENT LAB WORK RETIREMENT LAB WORK RETIREMENT BLOOD WORK RETIREMENT LABWORK LABWORK LABWORK RETIREMENT LAB WORK Chief Complaint RETIREMENT LABWORK RETIREMENT LAB WORK RETIREMENT LABWORK NURING HOME LABWORK RETIREMENT LABWORK RETIREMENT LAB WORK RETIREMENT LABWORK RETIREMENT LABWORK RETIREMENT LAB WORK RETIREMENT LAB WORK RETIREMENT BLOOD WORK RETIREMENT LABWORK LABWORK LABWORK RETIREMENT LAB WORK Chief Complaint RETIREMENT LAB WOR K RETIREMENT LABWORK NURING HOME LABWORK RETIREMENT LABWORK RETIREMENT LAB WORK RETIREMENT LABWORK RETIREMENT LABWORK RETIREMENT LAB WORK RETIREMENT LAB WORK RETIREMENT BLOOD WORK RETIREMENT LABWORK LABWORK LABWORK RETIREMENT LAB WORK Chief Complaint RETIREMENT LAB WOR K RETIREMENT LABWORK NURING HOME LABWORK RETIREMENT LABWORK RETIREMENT LAB WORK RETIREMENT LABWORK RETIREMENT LABWORK RETIREMENT LAB WORK RETIREMENT LAB WORK RETIREMENT BLOOD WORK RETIREMENT LABWORK LABWORK LABWORK RETIREMENT LAB WORK LABWORK RETIREMENT LABWORK Chief Complaint RETIREMENT LABWORK NURING HOME LABWORK RETIREMENT LABWORK RETIREMENT LAB WORK RETIREMENT LABWORK RETIREMENT LABWORK RETIREMENT LAB WORK RETIREMENT LAB WORK RETIREMENT BLOOD WORK RETIREMENT LABWORK LABWORK LABWORK RETIREMENT LAB WORK LABWORK RETIREMENT LABWORK RETIREMENT LAB WORK Chief Complaint RETIREMENT BLOOD W ORK RETIREMENT LABWORK RETIREMENT LABWORK LABWORK LABWORK RETIREMENT LAB WORK LABWORK RETIREMENT LABWORK RETIREMENT LAB WORK LABWORK RETIREMENT LAB WORK RETIREMENT LAB WORK LABWORK RETIREMENT LAB WORK Chief Complaint RETIREMENT BLOOD W ORK RETIREMENT LABWORK RETIREMENT LABWORK LABWORK LABWORK RETIREMENT LAB WORK LABWORK RETIREMENT LABWORK RETIREMENT LAB WORK LABWORK RETIREMENT LAB WORK RETIREMENT LAB WORK LABWORK RETIREMENT LAB WORK LABWORK Chief Complaint LABWORK LABWORK RETIREMENT LAB WORK LABWORK RETIREMENT LABWORK RETIREMENT LAB WORK LABWORK RETIREMENT LAB WORK RETIREMENT LAB WORK LABWORK RETIREMENT LAB WORK LABWORK RETIREMENT LAB WORK Chief Complaint LABWORK RETIREMENT LAB WORK LABWORK RETIREMENT LABWORK RETIREMENT LAB WORK LABWORK RETIREMENT LAB WORK RETIREMENT LAB WORK LABWORK RETIREMENT LAB WORK LABWORK RETIREMENT LAB WORK RETIREMENT LABWORK Chief Complaint LABWORK RETIREMENT LABWORK RETIREMENT LAB WORK LABWORK RETIREMENT LAB WORK RETIREMENT LAB WORK LABWORK RETIREMENT LAB WORK LABWORK RETIREMENT LAB WORK RETIREMENT LABWORK RETIREMENT LABWORK LABWORK RETIREMENT LAB WORK Chief Complaint RETIREMENT LAB WOR K LABWORK RETIREMENT LAB WORK RETIREMENT LAB WORK LABWORK RETIREMENT LAB WORK LABWORK RETIREMENT LAB WORK RETIREMENT LABWORK RETIREMENT LABWORK LABWORK RETIREMENT LAB WORK RETIREMENT LAB WORK Chief Complaint RETIREMENT LAB WOR K RETIREMENT LAB WORK LABWORK RETIREMENT LAB WORK LABWORK RETIREMENT LAB WORK RETIREMENT LABWORK RETIREMENT LABWORK LABWORK RETIREMENT LAB WORK RETIREMENT LAB WORK LABWORK RETIREMENT LAB WORK Chief Complaint RETIREMENT LAB WOR K LABWORK RETIREMENT LAB WORK LABWORK RETIREMENT LAB WORK RETIREMENT LABWORK RETIREMENT LABWORK LABWORK RETIREMENT LAB WORK RETIREMENT LAB WORK LABWORK RETIREMENT LAB WORK RETIREMENT LAB WORK Chief Complaint RETIREMENT LAB WOR K LABWORK RETIREMENT LAB WORK RETIREMENT LABWORK RETIREMENT LABWORK LABWORK RETIREMENT LAB WORK RETIREMENT LAB WORK LABWORK RETIREMENT LAB WORK LABWORK RETIREMENT LAB WORK RETIREMENT LAB WORK RETIREMENT LABWORK RETIREMENT LABWORK Chief Complaint LABWORK RETIREMENT LAB WORK RETIREMENT LABWORK RETIREMENT LABWORK LABWORK RETIREMENT LAB WORK RETIREMENT LAB WORK LABWORK RETIREMENT LAB WORK LABWORK RETIREMENT LAB WORK RETIREMENT LAB WORK RETIREMENT LABWORK LABWORK RETIREMENT LABWORK Chief Complaint LABWORK RETIREMENT LAB WORK RETIREMENT LAB WORK LABWORK RETIREMENT LAB WORK LABWORK RETIREMENT LAB WORK RETIREMENT LAB WORK RETIREMENT LABWORK LABWORK RETIREMENT LABWORK RETIREMENT LAB WORK Chief Complaint RETIREMENT LAB WOR K LABWORK RETIREMENT LAB WORK RETIREMENT LAB WORK RETIREMENT LABWORK LABWORK RETIREMENT LABWORK RETIREMENT LAB WORK LABWORK LABWORK LABWORK LABWORK RETIREMENT LABWORK RETIREMENT LAB WORK LABWORK LABWORK Chief Complaint LABWORK RETIREMENT LAB WORK RETIREMENT LAB WORK RETIREMENT LABWORK LABWORK RETIREMENT LABWORK RETIREMENT LAB WORK LABWORK LABWORK LABWORK LABWORK RETIREMENT LABWORK RETIREMENT LAB WORK LABWORK LABWORK RETIREMENT LABWORK Chief Complaint RETIREMENT LAB WOR K RETIREMENT LAB WORK RETIREMENT LABWORK LABWORK RETIREMENT LABWORK RETIREMENT LAB WORK LABWORK LABWORK LABWORK LABWORK RETIREMENT LABWORK RETIREMENT LAB WORK LABWORK LABWORK RETIREMENT LABWORK RETIREMENT LAB WORK Chief Complaint RETIREMENT LABWORK LABWORK RETIREMENT LABWORK RETIREMENT LAB WORK LABWORK LABWORK LABWORK LABWORK RETIREMENT LABWORK RETIREMENT LAB WORK LABWORK LABWORK RETIREMENT LABWORK RETIREMENT LAB WORK RETIREMENT LABWORK RETIREMENT LAB WORK Chief Complaint LABWORK RETIREMENT LABWORK RETIREMENT LAB WORK LABWORK LABWORK LABWORK LABWORK RETIREMENT LABWORK RETIREMENT LAB WORK LABWORK LABWORK RETIREMENT LABWORK RETIREMENT LAB WORK RETIREMENT LABWORK LABWORK RETIREMENT LAB WORK Chief Complaint LABWORK LABWORK LABWORK LABWORK RETIREMENT LABWORK RETIREMENT LAB WORK LABWORK LABWORK RETIREMENT LABWORK RETIREMENT LAB WORK RETIREMENT LABWORK LABWORK RETIREMENT LAB WORK LABWORK RETIREMENT LABWORK Chief Complaint LABWORK RETIREMENT LABWORK RETIREMENT LAB WORK LABWORK LABWORK RETIREMENT LABWORK RETIREMENT LAB WORK RETIREMENT LABWORK LABWORK RETIREMENT LAB WORK LABWORK RETIREMENT LABWORK LABWORK LABWORK Chief Complaint RETIREMENT LABWORK RETIREMENT LAB WORK LABWORK LABWORK RETIREMENT LABWORK RETIREMENT LAB WORK RETIREMENT LABWORK LABWORK RETIREMENT LAB WORK LABWORK RETIREMENT LABWORK LABWORK LABWORK LABWORK RETIREMENT LAB WORK RETIREMENT LAB WORK RETIREMENT LABWORK Chief Complaint RETIREMENT LABWORK RETIREMENT LAB WORK LABWORK LABWORK RETIREMENT LABWORK RETIREMENT LAB WORK RETIREMENT LABWORK LABWORK RETIREMENT LAB WORK LABWORK RETIREMENT LABWORK LABWORK LABWORK LABWORK RETIREMENT LAB WORK RETIREMENT LAB WORK RETIREMENT LABWORK RETIREMENT LABWORK Chief Complaint LABWORK LABWORK RETIREMENT LABWORK RETIREMENT LAB WORK RETIREMENT LABWORK LABWORK RETIREMENT LAB WORK LABWORK RETIREMENT LABWORK LABWORK LABWORK LABWORK RETIREMENT LAB WORK RETIREMENT LAB WORK RETIREMENT LABWORK RETIREMENT LABWORK RETIREMENT LAB WORK LABWORK Chief Complaint RETIREMENT LABWORK RETIREMENT LAB WORK RETIREMENT LABWORK LABWORK RETIREMENT LAB WORK LABWORK RETIREMENT LABWORK LABWORK LABWORK LABWORK RETIREMENT LAB WORK RETIREMENT LAB WORK RETIREMENT LABWORK RETIREMENT LABWORK RETIREMENT LAB WORK LABWORK RETIREMENT LABWORK Chief Complaint RETIREMENT LABWORK LABWORK RETIREMENT LAB WORK LABWORK RETIREMENT LABWORK LABWORK LABWORK LABWORK RETIREMENT LAB WORK RETIREMENT LAB WORK RETIREMENT LABWORK RETIREMENT LABWORK RETIREMENT LAB WORK LABWORK RETIREMENT LABWORK RETIREMENT LAB WORK Chief Complaint LABWORK RETIREMENT LABWORK LABWORK LABWORK LABWORK RETIREMENT LAB WORK RETIREMENT LAB WORK RETIREMENT LABWORK RETIREMENT LABWORK RETIREMENT LAB WORK LABWORK RETIREMENT LABWORK RETIREMENT LAB WORK RETIREMENT LABWORK RETIREMENT LAB WORK Chief Complaint LABWORK RETIREMENT LABWORK RETIREMENT LAB WORK RETIREMENT LABWORK RETIREMENT LAB WORK RETIREMENT LABWORK RETIREMENT LABWORK RETIREMENT LABWORK RETIREMENT LABWORK RETIREMENT LAB WORK LABWORK LABWORK RETIREMENT LABWORK Chief Complaint RETIREMENT LABWORK RETIREMENT LAB WORK RETIREMENT LABWORK RETIREMENT LABWORK RETIREMENT LABWORK RETIREMENT LABWORK RETIREMENT LAB WORK LABWORK LABWORK RETIREMENT LABWORK LABWORK RETIREMENT LAB WORK RETIREMENT LAB WORK Chief Complaint RETIREMENT LABWORK RETIREMENT LABWORK RETIREMENT LABWORK RETIREMENT LABWORK RETIREMENT LAB WORK LABWORK LABWORK RETIREMENT LABWORK LABWORK RETIREMENT LAB WORK RETIREMENT LAB WORK RETIREMENT LABWORK RETIREMENT LABWORK RETIREMENT LAB WORK RETIREMENT LAB WORK Chief Complaint RETIREMENT LABWORK RETIREMENT LABWORK RETIREMENT LABWORK RETIREMENT LAB WORK LABWORK LABWORK RETIREMENT LABWORK LABWORK RETIREMENT LAB WORK RETIREMENT LAB WORK RETIREMENT LABWORK RETIREMENT LABWORK RETIREMENT LAB WORK RETIREMENT LAB WORK Chief Complaint RETIREMENT LABWORK RETIREMENT LABWORK RETIREMENT LABWORK RETIREMENT LAB WORK LABWORK LABWORK RETIREMENT LABWORK LABWORK RETIREMENT LAB WORK RETIREMENT LAB WORK RETIREMENT LABWORK RETIREMENT LABWORK RETIREMENT LAB WORK RETIREMENT LAB WORK RETIREMENT LABWORK LABWORK Chief Complaint RETIREMENT LAB WOR K LABWORK LABWORK RETIREMENT LABWORK LABWORK RETIREMENT LAB WORK RETIREMENT LAB WORK RETIREMENT LABWORK RETIREMENT LABWORK RETIREMENT LAB WORK RETIREMENT LAB WORK RETIREMENT LABWORK LABWORK RETIREMENT LAB WORK LABWORK Chief Complaint RETIREMENT LAB WOR K LABWORK LABWORK RETIREMENT LABWORK LABWORK RETIREMENT LAB WORK RETIREMENT LAB WORK RETIREMENT LABWORK RETIREMENT LABWORK RETIREMENT LAB WORK RETIREMENT LAB WORK RETIREMENT LABWORK LABWORK RETIREMENT LAB WORK LABWORK RETIREMENT LABWORK RETIREMENT LAB WORK Chief Complaint LABWORK LABWORK RETIREMENT LABWORK LABWORK RETIREMENT LAB WORK RETIREMENT LAB WORK RETIREMENT LABWORK RETIREMENT LABWORK RETIREMENT LAB WORK RETIREMENT LAB WORK RETIREMENT LABWORK LABWORK RETIREMENT LAB WORK LABWORK RETIREMENT LABWORK RETIREMENT LAB WORK LABWORK\\ Chief Complaint LABWORK RETIREMENT LABWORK LABWORK RETIREMENT LAB WORK RETIREMENT LAB WORK RETIREMENT LABWORK RETIREMENT LABWORK RETIREMENT LAB WORK RETIREMENT LAB WORK RETIREMENT LABWORK LABWORK RETIREMENT LAB WORK LABWORK RETIREMENT LABWORK RETIREMENT LAB WORK LABWORK\\ LABWORK Chief Complaint RETIREMENT LAB WOR K RETIREMENT LAB WORK RETIREMENT LABWORK RETIREMENT LABWORK RETIREMENT LAB WORK RETIREMENT LAB WORK RETIREMENT LABWORK LABWORK RETIREMENT LAB WORK LABWORK RETIREMENT LABWORK RETIREMENT LAB WORK LABWORK\\ LABWORK RETIREMENT LAB WORK LABWORK Chief Complaint RETIREMENT LAB WOR K RETIREMENT LABWORK RETIREMENT LABWORK RETIREMENT LAB WORK RETIREMENT LAB WORK RETIREMENT LABWORK LABWORK RETIREMENT LAB WORK LABWORK RETIREMENT LABWORK RETIREMENT LAB WORK LABWORK\\ LABWORK RETIREMENT LAB WORK LABWORK LABWORK Chief Complaint RETIREMENT LABWORK RETIREMENT LABWORK RETIREMENT LAB WORK RETIREMENT LAB WORK RETIREMENT LABWORK LABWORK RETIREMENT LAB WORK LABWORK RETIREMENT LABWORK RETIREMENT LAB WORK LABWORK\\ LABWORK RETIREMENT LAB WORK LABWORK RETIREMENT LABWORK LABWORK Chief Complaint RETIREMENT LAB WOR K RETIREMENT LABWORK LABWORK RETIREMENT LAB WORK LABWORK RETIREMENT LABWORK RETIREMENT LAB WORK LABWORK\\ LABWORK RETIREMENT LAB WORK LABWORK RETIREMENT LABWORK LABWORK RETIREMENT LABWORK RETIREMENT LAB WORK LABWORK RETIREMENT LAB WORK Chief Complaint RETIREMENT LABWORK LABWORK RETIREMENT LAB WORK LABWORK RETIREMENT LABWORK RETIREMENT LAB WORK LABWORK\\ LABWORK RETIREMENT LAB WORK LABWORK RETIREMENT LABWORK LABWORK RETIREMENT LABWORK RETIREMENT LAB WORK LABWORK RETIREMENT LAB WORK LABWORK Chief Complaint RETIREMENT LAB WOR K LABWORK RETIREMENT LABWORK RETIREMENT LAB WORK LABWORK\\ LABWORK RETIREMENT LAB WORK LABWORK RETIREMENT LABWORK LABWORK RETIREMENT LABWORK RETIREMENT LAB WORK LABWORK RETIREMENT LAB WORK LABWORK LABWORK Chief Complaint RETIREMENT LAB WOR K LABWORK\\ LABWORK RETIREMENT LAB WORK LABWORK RETIREMENT LABWORK LABWORK RETIREMENT LABWORK RETIREMENT LAB WORK LABWORK RETIREMENT LAB WORK LABWORK LABWORK LABWORK LABWORK LABWORK Chief Complaint LABWORK\\ LABWORK RETIREMENT LAB WORK LABWORK RETIREMENT LABWORK LABWORK RETIREMENT LABWORK RETIREMENT LAB WORK LABWORK RETIREMENT LAB WORK LABWORK LABWORK LABWORK LABWORK LABWORK LABWORK Chief Complaint RETIREMENT LAB WOR K LABWORK RETIREMENT LABWORK LABWORK RETIREMENT LABWORK RETIREMENT LAB WORK LABWORK RETIREMENT LAB WORK LABWORK LABWORK LABWORK LABWORK LABWORK LABWORK LABWORK Chief Complaint RETIREMENT LABWORK LABWORK RETIREMENT LABWORK RETIREMENT LAB WORK LABWORK RETIREMENT LAB WORK LABWORK LABWORK LABWORK LABWORK LABWORK LABWORK LABWORK RETIREMENT LAB WORK LABWORK Chief Complaint LABWORK RETIREMENT LABWORK RETIREMENT LAB WORK LABWORK RETIREMENT LAB WORK LABWORK LABWORK LABWORK LABWORK LABWORK LABWORK LABWORK RETIREMENT LAB WORK LABWORK LABWORK LABWORK Chief Complaint LABWORK RETIREMENT LAB WORK LABWORK LABWORK LABWORK LABWORK LABWORK LABWORK LABWORK RETIREMENT LAB WORK LABWORK LABWORK LABWORK RETIREMENT LAB WORK RETIREMENT LAB WORK Chief Complaint RETIREMENT LAB WOR K LABWORK LABWORK LABWORK LABWORK LABWORK LABWORK LABWORK RETIREMENT LAB WORK LABWORK LABWORK LABWORK RETIREMENT LAB WORK RETIREMENT LAB WORK LABWORK Chief Complaint RETIREMENT LABWORK RETIREMENT LAB WORK RETIREMENT LAB WORK RETIREMENT LABWORK LABWORK RETIREMENT LAB WORK LABWORK RETIREMENT LABWORK RETIREMENT LAB WORK LABWORK\\ LABWORK RETIREMENT LAB WORK LABWORK RETIREMENT LABWORK LABWORK RETIREMENT LABWORK Chief Complaint RETIREMENT LABWORK RETIREMENT LAB WORK RETIREMENT LAB WORK RETIREMENT LABWORK LABWORK RETIREMENT LAB WORK LABWORK RETIREMENT LABWORK RETIREMENT LAB WORK LABWORK\\ LABWORK RETIREMENT LAB WORK LABWORK RETIREMENT LABWORK LABWORK RETIREMENT LABWORK RETIREMENT LAB WORK Chief Complaint Admit Date RETIREMENT LAB WORK March 11 5:00am RETIREMENT LAB WORK March 18 5:00am LABWORK March 25, 2024 5:00am LABWORK April 01, 2024 5 :00am RETIREMENT LAB WORK April 08, 2024 5:00am LABWORK April 15, 2024 5:00am LABWORK April 22, 2024 5:00am RETIREMENT LAB WORK April 29 5:00am LABWORK May 06, 2024 5: 00am RETIREMENT LAB WORK May 13, 2024 4:00am LABWORK May 20, 2024 5 :00am RETIREMENT LAB WORK May 27, 2024 5:00am LABWORK June 03, 2024 5 :00am LABWORK June 07, 2024 5 :00am RETIREMENT LAB WORK June 10 5:00am LABWORK June 17, 2024 5:00am RETIREMENT LAB WORK June 24 5:00am Chief Complaint Admit Date LABWORK April 01, 2024 5 :00am RETIREMENT LAB WORK April 08, 2024 5:00am LABWORK April 15, 2024 5:00am LABWORK April 22, 2024 5:00am RETIREMENT LAB WORK April 29 5:00am LABWORK May 06, 2024 5: 00am RETIREMENT LAB WORK May 13, 2024 4:00am LABWORK May 20, 2024 5 :00am RETIREMENT LAB WORK May 27, 2024 5:00am LABWORK June 03, 2024 5 :00am LABWORK June 07, 2024 5 :00am RETIREMENT LAB WORK June 10 5:00am LABWORK June 17, 2024 5:00am RETIREMENT LAB WORK June 24 5:00am RETIREMENT LAB WORK June 27 2:00am RETIREMENT LAB WORK July 01, 2024 4: 00am LABWORK July 08, 2024 5:0 0am RETIREMENT LAB WORK July 16, 2024 4 :00am Chief Complaint Admit Date RETIREMENT LAB WORK April 08, 2024 5:00am LABWORK April 15, 2024 5:00am LABWORK April 22, 2024 5:00am RETIREMENT LAB WORK April 29 5:00am LABWORK May 06, 2024 5: 00am RETIREMENT LAB WORK May 13, 2024 4:00am LABWORK May 20, 2024 5 :00am RETIREMENT LAB WORK May 27, 2024 5:00am LABWORK June 03, 2024 5 :00am LABWORK June 07, 2024 5 :00am RETIREMENT LAB WORK June 10 5:00am LABWORK June 17, 2024 5:00am RETIREMENT LAB WORK June 24 5:00am RETIREMENT LAB WORK June 27 2:00am RETIREMENT LAB WORK July 01, 2024 4: 00am LABWORK July 08, 2024 5:0 0am RETIREMENT LAB WORK July 15, 2024 5 :00am RETIREMENT LAB WORK July 16, 2024 4 :00am Chief Complaint Admit Date LABWORK April 15, 2024 5:00am LABWORK April 22, 2024 5:00am RETIREMENT LAB WORK April 29 5:00am LABWORK May 06, 2024 5: 00am RETIREMENT LAB WORK May 13, 2024 4:00am LABWORK May 20, 2024 5 :00am RETIREMENT LAB WORK May 27, 2024 5:00am LABWORK June 03, 2024 5 :00am LABWORK June 07, 2024 5 :00am RETIREMENT LAB WORK June 10 5:00am LABWORK June 17, 2024 5:00am RETIREMENT LAB WORK June 24 5:00am RETIREMENT LAB WORK June 27 2:00am RETIREMENT LAB WORK July 01, 2024 4: 00am LABWORK July 08, 2024 5:0 0am RETIREMENT LAB WORK July 15, 2024 5 :00am RETIREMENT LAB WORK July 16, 2024 4 :00am RETIREMENT LAB WORK July 22, 2024 5 :00am Chief Complaint Admit Date LABWORK April 22, 2024 5:00am RETIREMENT LAB WORK April 29 5:00am LABWORK May 06, 2024 5: 00am RETIREMENT LAB WORK May 13, 2024 4:00am LABWORK May 20, 2024 5 :00am RETIREMENT LAB WORK May 27, 2024 5:00am LABWORK June 03, 2024 5 :00am LABWORK June 07, 2024 5 :00am RETIREMENT LAB WORK June 10 5:00am LABWORK June 17, 2024 5:00am RETIREMENT LAB WORK June 24 5:00am RETIREMENT LAB WORK June 27 2:00am RETIREMENT LAB WORK July 01, 2024 4: 00am LABWORK July 08, 2024 5:0 0am RETIREMENT LAB WORK July 15, 2024 5 :00am RETIREMENT LAB WORK July 16, 2024 4 :00am RETIREMENT LAB WORK July 22, 2024 5 :00am LABWORK July 29, 2024 5:0 0am Chief Complaint Admit Date RETIREMENT LAB WORK May 13, 2024 4:00am LABWORK May 20, 2024 5 :00am RETIREMENT LAB WORK May 27, 2024 5:00am LABWORK June 03, 2024 5 :00am LABWORK June 07, 2024 5 :00am RETIREMENT LAB WORK June 10 5:00am LABWORK June 17, 2024 5:00am RETIREMENT LAB WORK June 24 5:00am RETIREMENT LAB WORK June 27 2:00am RETIREMENT LAB WORK July 01, 2024 4: 00am LABWORK July 08, 2024 5:0 0am RETIREMENT LAB WORK July 15, 2024 5 :00am RETIREMENT LAB WORK July 16, 2024 4 :00am RETIREMENT LAB WORK July 22, 2024 5 :00am LABWORK July 29, 2024 5:0 0am RETIREMENT LAB WORK August 05, 2024 5: 00am RETIREMENT LAB WORK August 12, 2024 5 :00am Chief Complaint Admit Date LABWORK May 20, 2024 5 :00am RETIREMENT LAB WORK May 27, 2024 5:00am LABWORK June 03, 2024 5 :00am LABWORK June 07, 2024 5 :00am RETIREMENT LAB WORK June 10 5:00am LABWORK June 17, 2024 5:00am RETIREMENT LAB WORK June 24 5:00am RETIREMENT LAB WORK June 27 2:00am RETIREMENT LAB WORK July 01, 2024 4: 00am LABWORK July 08, 2024 5:0 0am RETIREMENT LAB WORK July 15, 2024 5 :00am RETIREMENT LAB WORK July 16, 2024 4 :00am RETIREMENT LAB WORK July 22, 2024 5 :00am LABWORK July 29, 2024 5:0 0am RETIREMENT LAB WORK August 05, 2024 5: 00am RETIREMENT LAB WORK August 12, 2024 5 :00am LABWORK August 26, 2024 5:0 0am Chief Complaint Admit Date LABWORK June 03, 2024 5 :00am LABWORK June 07, 2024 5 :00am RETIREMENT LAB WORK June 10 5:00am LABWORK June 17, 2024 5:00am RETIREMENT LAB WORK June 24 5:00am RETIREMENT LAB WORK June 27 2:00am RETIREMENT LAB WORK July 01, 2024 4: 00am LABWORK July 08, 2024 5:0 0am RETIREMENT LAB WORK July 15, 2024 5 :00am RETIREMENT LAB WORK July 16, 2024 4 :00am RETIREMENT LAB WORK July 22, 2024 5 :00am LABWORK July 29, 2024 5:0 0am RETIREMENT LAB WORK August 05, 2024 5: 00am RETIREMENT LAB WORK August 12, 2024 5 :00am RETIREMENT LAB WORK August 19, 2024 4 :00am RETIREMENT LAB WORK August 23, 2024 5 :00am LABWORK August 26, 2024 5:0 0am LABWORK September 09, 2024 5:00a m Chief Complaint Admit Date LABWORK June 07, 2024 5 :00am RETIREMENT LAB WORK June 10 5:00am LABWORK June 17, 2024 5:00am RETIREMENT LAB WORK June 24 5:00am RETIREMENT LAB WORK June 27 2:00am RETIREMENT LAB WORK July 01, 2024 4: 00am LABWORK July 08, 2024 5:0 0am RETIREMENT LAB WORK July 15, 2024 5 :00am RETIREMENT LAB WORK July 16, 2024 4 :00am RETIREMENT LAB WORK July 22, 2024 5 :00am LABWORK July 29, 2024 5:0 0am RETIREMENT LAB WORK August 05, 2024 5: 00am RETIREMENT LAB WORK August 12, 2024 5 :00am RETIREMENT LAB WORK August 19, 2024 4 :00am RETIREMENT LAB WORK August 23, 2024 5 :00am LABWORK August 26, 2024 5:0 0am RETIREMENT LAB WORK September 02, 2024 4:00 am LABWORK September 09, 2024 5:00a m LABWORK September 11, 2024 5:00a m Chief Complaint Admit Date RETIREMENT LAB WORK July 01, 2024 4: 00am LABWORK July 08, 2024 5:0 0am RETIREMENT LAB WORK July 15, 2024 5 :00am RETIREMENT LAB WORK July 16, 2024 4 :00am RETIREMENT LAB WORK July 22, 2024 5 :00am LABWORK July 29, 2024 5:0 0am RETIREMENT LAB WORK August 05, 2024 5: 00am RETIREMENT LAB WORK August 12, 2024 5 :00am RETIREMENT LAB WORK August 19, 2024 4 :00am RETIREMENT LAB WORK August 23, 2024 5 :00am LABWORK August 26, 2024 5:0 0am RETIREMENT LAB WORK September 02, 2024 4:00 am LABWORK September 09, 2024 5:00a m LABWORK September 11, 2024 5:00a m RETIREMENT LAB WORK September 16, 2024 5:0 0am RETIREMENT LAB WORK September 24, 2024 4:0 0am Chief Complaint Admit Date RETIREMENT LAB WORK August 05, 2024 5: 00am RETIREMENT LAB WORK August 12, 2024 5 :00am RETIREMENT LAB WORK August 19, 2024 4 :00am RETIREMENT LAB WORK August 23, 2024 5 :00am LABWORK August 26, 2024 5:0 0am RETIREMENT LAB WORK September 02, 2024 4:00 am LABWORK September 09, 2024 5:00a m LABWORK September 11, 2024 5:00a m RETIREMENT LAB WORK September 16, 2024 5:0 0am RETIREMENT LAB WORK September 24, 2024 4:0 0am LABWORK September 30, 2024 5:00a m LABWORK October 07, 2024 5:00a m RETIREMENT LAB WORK October 14, 2024 4: 00am RETIREMENT LAB WORK October 21, 2024 4: 00am LABWORK October 28, 2024 5:00 am RETIREMENT LAB WORK November 04, 2024 4:0 0am RETIREMENT LAB WORK November 11, 2024 5: 00am Additional Source Comments (unrecognized sect ion and content) No Status Records FoundNo Status Records FoundNo Status Records FoundNo Status Records FoundNo Status Records FoundNo Status Records Found INFORMATION SOURCE (unrecogn ized section and content) DATE CREATED AUTHOR 09/04/2018 [employer] [facility] [employer] DATE CREATED AUTHOR AUTHOR'S ORGANIZ ATION 10/06/2018 [facility] DATE CREATED AUTHOR AUTHOR'S ORGANIZ ATION 03/26/2021 [facility] DATE CREATED AUTHOR AUTHOR'S ORGANIZ ATION 05/21/2021 [facility] DATE CREATED AUTHOR AUTHOR'S ORGANIZ ATION 06/28/2024 [facility] DATE CREATED AUTHOR AUTHOR'S ORGANIZ ATION 02/19/2025 [facility] Source Comments (unrecognize d section and content) In the event this informatio n is protected by the Federal Confidentiality of Alcohol and Drug Abuse Patient Records regulations: The Federal rules restrict any use of the information to criminally investigate or prosecute any alcohol or drug abuse patient.[facility] Reason for Visit (unrecogniz ed section and [...] Solorio RN) 0200 (Stopped - Provider: Nancy Solorio, KUSHAL)0640 [...] P&T / Antibiotic Stewardship guidelines). << 1400 (Due)0 (Due) cloZAPine (CLOZARIL) tablet 50 mg (CANCELED) 50 mg, Per G Tube, 2 TIMES DAILY, First dose (after last modification) on Mon03/21/21 at 2100, Avoid changes in caffeine intake. 0754 (Given - Provider: Tra Pearl RN)2205 (Given - Provider: Nancy Solorio, KUSHAL) 09 (Given - Provider: Jovana Armstrong RN) cloZAPine (CLOZARIL) tablet 75 mg 75 mg, Per G Tube, 2 TIMES DAILY, First dose (after last modification) on Mon03/23/21 at 2100, Avoid changes in caffeine intake. 214 (Given - Provider: Nancy Solorio RN) 09 (Given - Provider: Sandeep Thompson RN)2099 (Due) docusate (COLACE) 50 MG/5ML liquid 100 mg 100 mg, Per NG tube, 2 TIMES DAILY, First dose on Mon03/19/21 at 2323 0754 (Given - Provider: Tra Pearl RN)2204 (Given - Provider: Nancy Solorio RN) 0921 (Given - Provider: Jovana Armstrong, KUSHAL)2148 (Given - Provider: Nancy Solorio RN) 09 (Given - Provider: Sandeep Thompson RN)2099 (Due) enoxaparin (LOVENOX) injection 30 mg 30 mg, SubCUTAneous, 2 TIMES DAILY, First dose on Mon03/19/21 at 2323, Pharmacy to dose if renal insufficiency present. 0753 (Given - Provider: Tra Pearl RN)220 (Given - Provider: Nancy Solorio RN) 0940 (Given - Provider: Jovana Armstrong RN)2148 (Given - Provider: Nancy Solorio, KUSHAL) 0914 (Given - Provider: Sandeep Thompson RN)2099 (Due) finasteride (PROSCAR) tablet 5 mg 5 [...] 1200 0953 (Given - Provider: Amelie Taylor [facility])1356 (Given - Provider: Amelie Taylor NATURALIST)1648 (Given - Provider: Amelie Taylor NATURALIST)2212 (Given - Provider: Claire Lagos [facility]) 0841 (Given - Provider: Ana Cabrera [facility])1213 (Given - Provider: Ana Cabrera NATURALIST)1622 (Given - Provider: Ana Cabrera NATURALIST)2037 (Given - Provider: Perla Loyola [facility]) 1020 (Given - Provider: Gabriel Soares [facility])1200 (Due)1600 (Due)2000 (Due) lansoprazole (PREVACID SOLUTAB) [...] Taylor RCP)2215 (Given - Provider: Claire Lagos NATURALIST) 0841 (Given - Provider: Ana Cabrera NATURALIST)2051 (Given - Provider: Perla Loyola NATURALIST) 1200 (Due - Provider: Gabriel Soares NATURALIST)2100 (Due) sodium chloride flush 0.9 % injection [...] break. 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 Relationship Specialty Start Date End Date Renard Burgos [address] [place] [phone] PCP - General Internal Medicine 10/16/23 Bacteriology Teacher Relationship Specialty Start Date End Date Renard Burgos [address] [place] [phone] PCP - General Internal Medicine 10/16/23 Bacteriology Teacher Relationship Specialty Start Date End Date Renard Burgos [address] [place] [phone] PCP - General Internal Medicine 10/16/23 Bacteriology Teacher Relationship Specialty Start Date End Date Renard Burgos [address] [place] [phone] PCP - General Internal Medicine 10/16/23 Team [...] Provider Active Sta rt: September 09, 2024 Bacteriology Teacher Relationship Specialty Start Date End Date Renard Burgos [address] [facility] [address] [place] [phone] PCP - General Internal Medicine 10/16/23 Team [...] BE BASED ON THE PRIMARY CLINICAL RECORDS. [facility] [employer] [facility]. provides no warranty or guarantee of the accuracy or completeness of information in this document.
[2025-02-21 11:16] LABS: Hematocrit 42.1 % (40-54); Hemoglobin 13.6 g/dL (13.0-16.5); Mean Corp Hgb Conc 32.3 g/dL (32-36); Mean Corpuscular Volume 93.3 fL (80-94); Mean Platelet Vol. 11.6 fl (6.2-12.0); Platelet Count 173 K/mm3 (150-450); RBC Distribution Width CV 13.7 % (11.6-14.6); RBC Distribution Width SD 46.5 fl (35.1-43.9); Red Blood Count 4.51 M/mm3 (4.6-6.2); White Blood Count 10.2 K/mm3 (4.4-11.0)
[2025-02-21 11:40] LABS: Cholesterol 139 mg/dL (<=200); Low Density Lipoprotein Calc. 75 mg/dL; Triglycerides 185 mg/dL; Very Low Density Lipoprotein 37 mg/dL (5-40); cholesterol:hdl ratio screen 4.32
[2025-02-21 11:50] LABS: AST(SGOT) 39 U/L (<=37); Alanine Aminotransfer ALT/SGPT 22 U/L (<=46); Albumin, Serum 3.3 g/dL (3.4-4.8); Alkaline Phosphatase 137 U/L (40-129); Anion Gap 10 (5-15); BUN 19 mg/dL (4-19); BUN/Creat Ratio 30.1 RATIO (10-20); Calcium,Total 8.6 mg/dL (7.6-11.0); Carbon Dioxide 22.4 mmol/L (21.0-32.0); Chloride 104 mmol/L (98-108); Globulin 3.0 g/dL (2.2-4.2); Glucose 104 mg/dL (70-99); Potassium 5.0 mmol/L (3.3-5.1)
== END ==
LOC: OLS.SANC 05:00
PROVIDERS: Visit Provider Internal Medicine
DX: Z79.899 Other long term (current) drug therapy (principal)
CPT/HCPCS: 36415; 80053; 80061; 83036; 85027

== ENCOUNTER → 2025-02-24 05:00 | Outpatient (REF) | payer MEDICAID, SELFPAY ==
--- OUTSIDE RECORDS SUMMARY | 2025-02-24 04:33 | XMS RPT_ITS | CCD ---
Author Organization [facility] Care Team Providers Care Parts Salesman Name Role Phone JORDAN OREILLY Attending Unavailable PROVIDER, UNKNOWN Referring Unavailable Nathanael Cazares Primary Care Unavailable PROVIDER, UNKNOWN Referring Unavailable Nathanael Cazares Primary Care Unavailable Jaime Lindquist Attending Unavailable Unavailable Primary Care Provider UnavailBethany Navarrete Primary Care Provider [phone] Jarvis Kendall MD Unavailable [phone] Bethany Russell MD Primary Care Provider Unavailable Primary Care Provider Unavailclifton Latif MD, Jenn Edwin Primary Care Provider [phone] Unavailable Primary Care Provider UnavailRenard Mccann Primary [...] Unavailable Katsaros OLS, Renard Attending Unavailable Katsaros GILL, Renard Attending Unavailable Katsaros GILL, Renard Referring Unavailable Loretta GARLAND, Renard Attending Unavailable Loretta GARLAND, Renard Referring Unavailable Loretta GARLAND, Renard Attending Unavailable Renard Jackson Primary Care Unavailable Loretta GARLAND, Renard Attending Unavailable Loretta GARLAND, Renard Attending Unavailable Loretta GARLAND, Renard Referring Unavailable Loretta GARLAND, Renard Attending Unavailable Loretta GARLAND, Renard Attending Unavailable Loretta GARLAND, Renard Referring Unavailable Loretta GARLAND, Renard Attending Unavailable Loretta GARLAND, Renard Referring Unavailable Loretta GARLAND, Renard Attending Unavailable Loretta GARLAND, Renard Attending Unavailable Shelliesaros OLS, Renard Attending Unavailable Katsaros OLS, Renard Attending Unavailable Medications Current Medications Medication Drug Class(es) Dates Sig (Normalized) Sig (Original) Acetaminophen (18 sources) Start: 03-20-2021 acetaminophen (TYLENOL) tablet 650 mg Start: 05-22-2019 ACETAMINOPHEN 325 MG TABS 2 tablet via peg tube as needed ACETAMINOPHEN [id number] [facility] albuterol 0.83 mg/ml inhalation solution (1 source) beta2-Adrenergic Agonist Start: 03-19-2021 albut veronica (PROVENTIL) nebulizer solution 2.5 mg albuterol 0.833 mg/ml / ipratropium bromide 0.167 mg/ml inhalation solution (18 sources) Anticholinergic, beta2-Adrenergic Agonist Start: 03-20-2021 ipratropium-alb utero l (DUONEB) nebulizer solution 1 ampule Start: 05-22-2019 IPRATROPIUM-AL BUTEROL 0.5-2.5 (3) MG/3ML SOLN 3ml via nebulizer every 4 hours as needed IPRATROPIUM-ALBUTEROL [id number] Ana [employer] Start: 08-22-2018 take 3 mL by inhalat ion every four hours ipratropium-albuterol (DUONEB) 0.5-2.5 (3) MG/3ML SOLN nebulizer solution Inhale 3 mLs into the lungs every 4 hours 360 mL 0 08/22/2018 Active aspirin 81 mg chewable tablet (9 sources) Platelet Aggregation Inhibitor, Nonsteroidal Anti-inflammatory Drug Start: 05-22-2019 ASPIRIN ADULT LOW STRENGTH 81 MG CHEW one tablet via peg tube daily ASPIRIN [id number] [facility] Start: 08-23-2018 aspirin 81 MG chewable tablet 1 tablet by Per NG tube route daily 30 tablet 3 08/23/2018 Active atorvastatin 40 mg oral tablet (9 sources) HMG-CoA Reductase Inhibitor Start: 05-22-2019 ATORVASTATIN CALCIUM 40 MG TABS one tablet via peg tube daily ATORVASTATIN CALCIUM [id number] [facility] Start: 08-22-2018 atorvastatin ( LIPITOR) 40 MG tablet 1 tablet by Per NG tube route nightly 30 tablet 3 08/22/2018 Active castor oil 0.788 mg/mg / italian balsam 0.087 mg/mg topical ointment (7 sources) Standardized Chemical Allergen Start: 08-22-2018 [place] O il (VENELEX) OINT ointment Apply topically [...] 250mg via peg tube twice daily CLOZAPINE [id number] [facility] Start: 08-22-2018 cloZAPine (AILYN ZARIL) 100 MG [...] via peg tube twice daily DOCUSATE SODIUM [id number] Ana Stevenson [facility] Start: 08-22-2018 docusate (COLA CE) 50 MG/5ML liquid 10 mLs by Per NG tube route 2 times daily 0 08/22/2018 Active take 1 capsule by [facility] twice daily docusate sodium (Colace) 100 MG [...] one tablet via peg tube nightly MELATONIN [id number] Ana [facility] Start: 08-22-2018 melatonin 3 MG TABS [...] needed. 0 08/23/2018 Active polyethylene glycol 3350 42882 mg powder for oral solution (1 source) [...] Sig (Normalized) Sig (Original) barium sulfate (Varibar [place], Varibar Honey) 40 % suspension 5 mL [...] SUPP every 24 hours as needed BISACODYL [id number] Ana [employer] Start: 05-22-2019 BISACODYL EC 5 MG TBEC one tablet via peg tube daily as needed BISACODYL [id number] Ana [employer] chlorhexidine gluconate 1.2 mg/ml mouthwash (10 sources) Start: 05-22-2019 PERIDEX 0.12 % SOLN 15ml twice daily CHLORHEXIDINE GLUCONATE [id number] Ana Stevenson LPN chlorhexidine (P eridex) 0.12 % solution Use 15 mL in the mouth or throat if needed for wound care. Active cholecalciferol 1000 unt oral tablet (16 sources) Vitamin D Start: 05-22-2019 VITAMIN D3 25 MCG (1000 UT) TABS one tablet via peg tube daily CHOLECALCIFEROL [id number] Ana Stevenson LPN cholecalciferol (SM Vitamin D3) 25 MCG (1000 UT) tablet Take 1,000 Units by mouth daily. Active dextromethorphan hydrobromide 2 mg/ml / guaiFENesin 20 mg/ml oral solution (1 source) Uncompetitive T-zwqybp-O-aspartate Receptor Antagonist, Sigma-1 Agonist Start: 05-22-2019 ROBITUSSIN PEAK COLD DM SYRP 5ml via peg tube every 4 hours as needed for cough DEXTROMETHORPHAN-GUAIFENESIN SYRP [id number] Ana Stevenson LPN magnesium hydroxide 240 mg/ml oral suspension (1 source) Start: 05-22-2019 MILK OF MAGNESIA CONCENTRATE SUSP 30ml via peg tube every 24 hours MAGNESIUM HYDROXIDE SUSP [id number] Ana Stevenson LPN methylPREDNISolone 40 mg injection (2 sources) Corticosteroid Start: 03-20-2021 End: 03-24-2021 methylPREDNISolone sodium (SOLU-MEDROL) injection 40 mg MULTIPLE VITAMINS-MINERALS (1 source) Start: 05-22-2019 MENS MULTIVITAMIN TABS one tablet via peg tube daily MULTIPLE VITAMINS-MINERALS [id number] Ana Stevenson LPN POLYETHYLENE GLYCOL 1450 (1 source) Start: 05-22-2019 POLYETHYLENE GLYCOL 1450 POW D 17 grams via peg tube twice daily POLYETHYLENE GLYCOL 1450 [id number] Ana Stevenson LPN SENNOSIDES-DOCUSATE SODIUM (1 source) Start: 05-22-2019 SENNA PLUS 8.6-50 MG TABS on e tablet via peg tube daily SENNOSIDES-DOCUSATE SODIUM [id number] Ana Stevenson LPN 50 ml sodium chloride [...] unspecified; Translations: [Hyperglycemia, unspecified] Onset: 9 Episodic Esophageal disorders (1 source) Esophageal disorders; Translations: [...] Onset: 9 07-11-2018 Other aftercare (2 sources) detention (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; Translations: [terminal supervisor (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] Onset: 9 Episodic Other aftercare (2 sources) Other terminal supervisor (current) drug therapy; Translations: [Other terminal supervisor (current) drug therapy] Onset: 5 Episodic Other [...] and agitation; Translations: [Restlessness and agitation] Onset: Chronic Residual codes; unclassified (2 sources) Physical [...] 07-23-2018 Episodic Other aftercare (1 source) terminal supervisor (current) use of antibiotics; Translations: [detention (current) use of antibiotics] Onset: 5 Episodic Other aftercare (1 source) detention (current) use of 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; Translations: [detention (current) use of 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] Onset: 5 Episodic [...] Test Name Value Interpretation Reference Range Facility CBC-Complete Blood Cnt No Di ffon 02-21-2025 Erythrocyte distribution width (RBC) [Ratio] 13.7 % Normal 11.6-14.6 [facility] Comment on above: Order Comment: 109.1 Performed By: #### L 500.5600, L501.9997, L100.0500, L500.4050 ####[facility] [address] [place], [address] Hematocrit (Bld) [Volume fraction] 42.1 % Normal 40-54 [facility] Comment on above: Order Comment: 109.1 Performed By: #### L 500.4100, L501.9985, L100.0500, L500.4050 ####[facility] [address] [place], [address] Hemoglobin (Bld) [Mass/Vol] 13.6 g/dL Normal 13.0-16.5 [facility] Comment on above: Order Comment: 109.1 Performed By: #### L 500.4100, L501.9985, L100.0500, L500.4050 ####[facility] [address] [place], [address] MCH (RBC) [Entitic mass] 30.2 pg Normal 27.0-32.0 [facility] Comment on above: Order Comment: 109.1 Performed By: #### L 500.4100, L501.9985, L100.0500, L500.4050 ####[facility] [address] [place], [address] MCHC (RBC) [Mass/Vol] 32.3 g/dL Normal 32-36 [facility] Comment on above: Order Comment: 109.1 Performed By: #### L 500.4100, L501.9985, L100.0500, L500.4050 ####[facility] [address] [place], [address] MCV (RBC) [Entitic vol] 93.3 fL Normal 80-94 [facility] Comment on above: Order Comment: 109.1 Performed By: #### L 500.4100, L501.9985, L100.0500, L500.4050 ####[facility] [address] [place], [address] Platelet mean volume (Bld) [Entitic vol] 11.6 fL Normal 6.2-12.0 [facility] Comment on above: Order Comment: 109.1 Performed By: #### L 500.4100, L501.9985, L100.0500, L500.4050 ####[facility] [address] [place], [address] Platelets (Bld) [#/Vol] 173 10*3/uL Normal 150-450 [facility] Comment on above: Order Comment: 109.1 Performed By: #### L 500.4100, L501.9985, L100.0500, L500.4050 ####[facility] [address] [place], [address] RBC (Bld) [#/Vol] 4.51 10*6/uL Low 4.6-6.2 [facility] Comment on above: Order Comment: 109.1 Performed By: #### L 500.4100, L501.9985, L100.0500, L500.4050 ####[facility] [address] [place], [address] RDW SD 46.5 fl High 35.1-43.9 [facility] Comment on above: Order Comment: 109.1 Performed By: #### L 500.4100, L501.9985, L100.0500, L500.4050 ####[facility] [address] [place], [address] WBC (Bld) [#/Vol] 10.2 10*3/uL Normal 4.4-11.0 [facility] Comment on above: Order Comment: 109.1 Performed By: #### L 500.4100, L501.9985, L100.0500, L500.4050 ####[facility] [address] [place], [address] Comprehensive Metabolic Prof ilon 02-21-2025 Albumin [Mass/Vol] 3.3 g/dL Low 3.4-4.8 [facility] Comment on above: Order Comment: 109.1 Performed By: #### L 500.4100, L501.9985, L100.0500, L500.4050 ####[facility] [address] [place], [address] Albumin/Globulin [Mass ratio] 1.1 {ratio} Normal 0.9-2.4 [facility] Comment on above: Order Comment: 109.1 Performed By: #### L 500.4100, L501.9985, L100.0500, L500.4050 ####[facility] [address] [place], [address] ALK PHOS 137 U/L High 40-129 [facility] Comment on above: Order Comment: 109.1 Performed By: #### L 500.4100, L501.9985, L100.0500, L500.4050 ####[facility] [address] [place], [address] ALT [Catalytic activity/Vol] 22 U/L Normal <=46 [facility] Comment on above: Order Comment: 109.1 Result Comment: Hemo lysis present, Results??could be affected.?? Performed By: #### L 500.4100, L501.9985, L100.0500, L500.4050 ####[facility] [address] [place], [address] AST [Catalytic activity/Vol] 39 U/L High <=37 [facility] Comment on above: Order Comment: 109.1 Result Comment: Hemo lysis present, Results??could be affected.?? Performed By: #### L 500.4100, L501.9985, L100.0500, L500.4050 ####[facility] [address] [place], [address] Bilirubin [Mass/Vol] 0.40 mg/dL Normal 0.00-1.30 [facility] Comment on above: Order Comment: 109.1 Performed By: #### L 500.4100, L501.9985, L100.0500, L500.4050 ####[facility] [address], [address] BUN/CRE 30.1 RATIO High 10-20 [facility] Comment on above: Order Comment: 109.1 Performed By: #### L 500.4100, L501.9985, L100.0500, L500.4050 ####[facility] [address], [address] Calcium [Mass/Vol] 8.6 mg/dL Normal 7.6-11.0 [facility] Comment on above: Order Comment: 109.1 Performed By: #### L 500.4100, L501.9985, L100.0500, L500.4050 ####[facility] [address] [place], [address] Chloride [Moles/Vol] 104 mmol/L Normal 98-108 [facility] Comment on above: Order Comment: 109.1 Performed By: #### L 500.4100, L501.9985, L100.0500, L500.4050 ####[facility] [address] [place], [address] CO2 [Moles/Vol] 22.4 mmol/L Normal 21.0-32.0 [facility] Comment on above: Order Comment: 109.1 Performed By: #### L 500.4100, L501.9985, L100.0500, L500.4050 ####[facility] [address] [place], [address] Creatinine [Mass/Vol] 0.63 mg/dL Low 0.70-1.20 [facility] Comment on above: Order Comment: 109.1 Performed By: #### L 500.4100, L501.9985, L100.0500, L500.4050 ####[facility] [address], [address] GAP 10 Normal 5-15 [facility] Comment on above: Order Comment: 109.1 Performed By: #### L 500.4100, L501.9985, L100.0500, L500.4050 ####[facility] [address] [place], [address] GFR/1.73 sq M.predicted among non-blacks MDRD (S/P/Bld) [Vol rate/Area] 104 mL/min/{1.73_m2} Normal >60 [facility] Comment on above: Order Comment: 109.1 Result Comment: mL/m in/1.73m2 CKD-EPI Creatinine Equation (2020) Performed By: #### L 500.4100, L501.9985, L100.0500, L500.4050 ####[facility] [address] [place], [address] Globulin (S) [Mass/Vol] 3.0 g/dL Normal 2.2-4.2 [facility] Comment on above: Order Comment: 109.1 Performed By: #### L 500.4100, L501.9985, L100.0500, L500.4050 ####[facility] [address] [place], [address] Glucose [Mass/Vol] 104 mg/dL High 70-99 [facility] Comment on above: Order Comment: 109.1 Performed By: #### L 500.4100, L501.9985, L100.0500, L500.4050 ####[facility] [address] [place], [address] Potassium [Moles/Vol] 5.0 mmol/L Normal 3.3-5.1 [facility] Comment on above: Order Comment: 109.1 Result Comment: Hemo lysis present, Results??could be affected.?? Performed By: #### L 500.4100, L501.9985, L100.0500, L500.4050 ####[facility] [address] [place], [address] Sodium [Moles/Vol] 137 mmol/L Normal 133-145 [facility] Comment on above: Order Comment: 109.1 Performed By: #### L 500.4100, L501.9985, L100.0500, L500.4050 ####[facility] [address] [place], [address] T PROT 6.3 g/dL Normal 5.9-8.4 [facility] Comment on above: Order Comment: 109.1 Performed By: #### L 500.4100, L501.9985, L100.0500, L500.4050 ####[facility] [address] [place], [address] Urea nitrogen [Mass/Vol] 19 mg/dL Normal 4-19 [facility] Comment on above: Order Comment: 109.1 Performed By: #### L 500.4100, L501.9985, L100.0500, L500.4050 ####[facility] [address] [place], [address] Hemoglobin A1con 02-21-2025 HbA1c (Bld) [Mass fraction] 5.4 % Normal <=5.6 [facility] Comment on above: Order Comment: 109.1 Result Comment: Norm al < 5.7 % Prediabetic 5.7 - 6.4 % Diabetic >or= 6.5 % Please note range changes. Performed By: #### L 500.4100, L501.9985, L100.0500, L500.4050 ####[facility] [address] [place], [address] Lipid Profileon 02-21-2025 CHOL:HDL 4.32 Normal [facility] Comment on above: Order Comment: 109.1 Performed By: #### L 500.4100, L501.9985, L100.0500, L500.4050 ####[facility] [address] [place], [address] Cholesterol [Mass/Vol] 139 mg/dL Normal <=200 [facility] Comment on above: Order Comment: 109.1 Result Comment: Chol esterol level, Desirable <200 mg/dLBorderline high cholesterol 200-239 mg/dLHigh cholesterol >=240 mg/dLRecommendations of the NCEP Adult Treatment Panel for thefollowing risk-cutoff thresholds for the [place] Americanking[facility] regional medical centerulation. Performed By: #### L 500.4100, L501.9985, L100.0500, L500.4050 ####[facility] [address] [place], [address] Cholesterol in HDL [Mass/Vol] 32 mg/dL Low [facility] Comment on above: Order Comment: 109.1 Result Comment: Lucy onal Cholesterol Education Program (NCEP) guidelines:<40 mg/dL: Low HDL-cholesterol (major risk factor for CHD)>= 60 mg/dL: High HDL-cholesterol (negative risk factor forCHD)HDL-cholesterol is affected by a number of factors, e.g.smoking, exercise, hormones, sex and age. Performed By: #### L 500.4100, L501.9985, L100.0500, L500.4050 ####[facility] [address] [place], [address] Cholesterol in LDL [Mass/Vol] 75 mg/dL Normal [facility] Comment on above: Order Comment: 109.1 Result Comment: Bord pyhbyz=061-036 mg/dL Higher Tfwt=224 mg/dL or greaterSampson Equation 2020 for LDL-C Performed By: #### L 500.4100, L501.9985, L100.0500, L500.4050 ####[facility] [address] [place], [address] Cholesterol in VLDL [Mass/Vol] 37 mg/dL Normal 5-40 [facility] Comment on above: Order Comment: 109.1 Performed By: #### L 500.4100, L501.9985, L100.0500, L500.4050 ####[facility] [address] [place], [address] Triglyceride [Mass/Vol] 185 mg/dL Normal [facility] Comment on above: Order Comment: 109.1 Result Comment: The drugs N-Acetylcysteine and Metamizole may falselydepress this assay.Normal range: <150 mg/dLBorderline High: 150-199 mg/dLHigh: 200-499 mg/dLVery High: >500 mg/dL Performed By: #### L 500.4100, L501.9985, L100.0500, L500.4050 ####[facility] [address] [place], [address] CBC W/Diff, Automatedon 10-2 0-2025 Absolute Lymph 2.31 X10 3/uL Normal 0.83-4.51 [facility] Comment on above: Order Comment: 109.1 Performed By: #### L 100.0100 ####[facility] [address] [place], [address] Absolute Neut 5.5 X10 3/uL Normal 2.0-7.7 [facility] Comment on above: Order Comment: 109.1 Performed By: #### L 100.0100 ####[facility] [address] [place], [address] Basophils/100 WBC (Bld) 0.6 % Normal 0-1 [facility] Comment on above: Order Comment: 109.1 Performed By: #### L 100.0100 ####[facility] [address] [place], [address] Eosinophils/100 WBC (Bld) 0.9 % Normal 0-5 [facility] Comment on above: Order Comment: 109.1 Performed By: #### L 100.0100 ####[facility] [address] [place], [address] Erythrocyte distribution width (RBC) [Ratio] 13.8 % Normal 11.6-14.6 [facility] Comment on above: Order Comment: 109.1 Performed By: #### L 100.0100 ####[facility] [address] [place], [address] Hematocrit (Bld) [Volume fraction] 43.6 % Normal 40-54 [facility] Comment on above: Order Comment: 109.1 Performed By: #### L 100.0100 ####[facility] [address] [place], [address] Hemoglobin (Bld) [Mass/Vol] 14.2 g/dL Normal 13.0-16.5 [facility] Comment on above: Order Comment: 109.1 Performed By: #### L 100.0100 ####[facility] [address] [place], [address] IG% 0.300 Normal 0.0-0.9 [facility] Comment on above: Order Comment: 109.1 Result Comment: IG% - Immature Granulocytes (promyelocytes, myelocytes andmetamyelocytes) > 1% indicates that a LEFT SHIFT is Present. Performed By: #### L 100.0100 ####[facility] [address], [address] Lymphocytes/100 WBC (Bld) 26.1 % Normal 19-41 [facility] Comment on above: Order Comment: 109.1 Performed By: #### L 100.0100 ####[facility] [address] [place], [address] MCH (RBC) [Entitic mass] 30.4 pg Normal 27.0-32.0 [facility] Comment on above: Order Comment: 109.1 Performed By: #### L 100.0100 ####[facility] [address] [place], [address] MCHC (RBC) [Mass/Vol] 32.6 g/dL Normal 32-36 [facility] Comment on above: Order Comment: 109.1 Performed By: #### L 100.0100 ####[facility] [address], [address] MCV (RBC) [Entitic vol] 93.4 fL Normal 80-94 [facility] Comment on above: Order Comment: 109.1 Performed By: #### L 100.0100 ####[facility] [address], [address] Monocytes/100 WBC (Bld) 10.4 % High 0-10 [facility] Comment on above: Order Comment: 109.1 Performed By: #### L 100.0100 ####[facility] [address] [place], [address] Neutrophils/100 WBC (Bld) 61.7 % Normal 47-70 [facility] Comment on above: Order Comment: 109.1 Performed By: #### L 100.0100 ####[facility] [address] [place], [address] Nucleated RBC (Bld) [#/Vol] 0 10*3/uL Normal 0-5 [facility] Comment on above: Order Comment: 109.1 Performed By: #### L 100.0100 ####[facility] [address] [place], [address] Platelet mean volume (Bld) [Entitic vol] 11.3 fL Normal 6.2-12.0 [facility] Comment on above: Order Comment: 109.1 Performed By: #### L 100.0100 ####[facility] [address] [place], [address] Platelets (Bld) [#/Vol] 197 10*3/uL Normal 150-450 [facility] Comment on above: Order Comment: 109.1 Performed By: #### L 100.0100 ####[facility] [address] [place], [address] RBC (Bld) [#/Vol] 4.67 10*6/uL Normal 4.6-6.2 [facility] Comment on above: Order Comment: 109.1 Performed By: #### L 100.0100 ####[facility] [address] [place], [address] RDW SD 47.2 fl High 35.1-43.9 [facility] Comment on above: Order Comment: 109.1 Performed By: #### L 100.0100 ####[facility] [address] [place], [address] WBC (Bld) [#/Vol] 8.9 10*3/uL Normal 4.4-11.0 [facility] Comment on above: Order Comment: 109.1 Performed By: #### L 100.0100 ####[facility] [address] [place], [address] CBC W/Diff, Automatedon 10-05 03-2024 Absolute Lymph 2.53 X10 3/uL Normal 0.83-4.51 [facility] Comment on above: Order Comment: 109 Performed By: #### L 100.0100 ####[facility] [address] [place], [address] Absolute Neut 5.5 X10 3/uL Normal 2.0-7.7 [facility] Comment on above: Order Comment: 109 Performed By: #### L 100.0100 ####[facility] [address] [place], [address] Basophils/100 WBC (Bld) 0.7 % Normal 0-1 [facility] Comment on above: Order Comment: 109 Performed By: #### L 100.0100 ####[facility] [address] [place], [address] Eosinophils/100 WBC (Bld) 0.8 % Normal 0-5 [facility] Comment on above: Order Comment: 109 Performed By: #### L 100.0100 ####[facility] [address] [place], [address] Erythrocyte distribution width (RBC) [Ratio] 13.6 % Normal 11.6-14.6 [facility] Comment on above: Order Comment: 109 Performed By: #### L 100.0100 ####[facility] [address] [place], [address] Hematocrit (Bld) [Volume fraction] 43.9 % Normal 40-54 [facility] Comment on above: Order Comment: 109 Performed By: #### L 100.0100 ####[facility] [address] [place], [address] Hemoglobin (Bld) [Mass/Vol] 14.2 g/dL Normal 13.0-16.5 [facility] Comment on above: Order Comment: 109 Performed By: #### L 100.0100 ####[facility] [address] [place], [address] IG% 0.300 Normal 0.0-0.9 [facility] Comment on above: Order Comment: 109 Result Comment: IG% - Immature Granulocytes (promyelocytes, myelocytes andmetamyelocytes) > 1% indicates that a LEFT SHIFT is Present. Performed By: #### L 100.0100 ####[facility] [address] [place], [address] Lymphocytes/100 WBC (Bld) 28.0 % Normal 19-41 [facility] Comment on above: Order Comment: 109 Performed By: #### L 100.0100 ####[facility] [address] [place], [address] MCH (RBC) [Entitic mass] 29.6 pg Normal 27.0-32.0 [facility] Comment on above: Order Comment: 109 Performed By: #### L 100.0100 ####[facility] [address] [place], [address] MCHC (RBC) [Mass/Vol] 32.3 g/dL Normal 32-36 [facility] Comment on above: Order Comment: 109 Performed By: #### L 100.0100 ####[facility] [address] [place] [place], [address] MCV (RBC) [Entitic vol] 91.6 fL Normal 80-94 [facility] Comment on above: Order Comment: 109 Performed By: #### L 100.0100 ####[facility] [address] [place], [address] Monocytes/100 WBC (Bld) 8.9 % Normal 0-10 [facility] Comment on above: Order Comment: 109 Performed By: #### L 100.0100 ####[facility] [address] [place], [address] Neutrophils/100 WBC (Bld) 61.3 % Normal 47-70 [facility] Comment on above: Order Comment: 109 Performed By: #### L 100.0100 ####[facility] [address] [place], [address] Nucleated RBC (Bld) [#/Vol] 0 10*3/uL Normal 0-5 [facility] Comment on above: Order Comment: 109 Performed By: #### L 100.0100 ####[facility] [address] [place], [address] Platelet mean volume (Bld) [Entitic vol] 11.3 fL Normal 6.2-12.0 [facility] Comment on above: Order Comment: 109 Performed By: #### L 100.0100 ####[facility] [address] [place], [address] Platelets (Bld) [#/Vol] 217 10*3/uL Normal 150-450 [facility] Comment on above: Order Comment: 109 Performed By: #### L 100.0100 ####[facility] [address] [place], [address] RBC (Bld) [#/Vol] 4.79 10*6/uL Normal 4.6-6.2 [facility] Comment on above: Order Comment: 109 Performed By: #### L 100.0100 ####[facility] [address] [place], [address] RDW SD 45.8 fl High 35.1-43.9 [facility] Comment on above: Order Comment: 109 Performed By: #### L 100.0100 ####[facility] [address] [place], [address] WBC (Bld) [#/Vol] 9.0 10*3/uL Normal 4.4-11.0 [facility] Comment on above: Order Comment: 109 Performed By: #### L 100.0100 ####[facility] [address] [place], [address] CBC W/Diff, Automatedon 10-0 6-2025 Absolute Lymph 2.12 X10 3/uL Normal 0.83-4.51 [facility] Comment on above: Order Comment: 109.1 Performed By: #### L 100.0100 ####[facility] [address] [place], [address] Absolute Neut 6.0 X10 3/uL Normal 2.0-7.7 [facility] Comment on above: Order Comment: 109.1 Performed By: #### L 100.0100 ####[facility] [address] [place], [address] Basophils/100 WBC (Bld) 0.5 % Normal 0-1 [facility] Comment on above: Order Comment: 109.1 Performed By: #### L 100.0100 ####[facility] [address] [place], [address] Eosinophils/100 WBC (Bld) 0.8 % Normal 0-5 [facility] Comment on above: Order Comment: 109.1 Performed By: #### L 100.0100 ####[facility] [address], [address] Erythrocyte distribution width (RBC) [Ratio] 13.2 % Normal 11.6-14.6 [facility] Comment on above: Order Comment: 109.1 Performed By: #### L 100.0100 ####[facility] [address] [place], [address] Hematocrit (Bld) [Volume fraction] 40.1 % Normal 40-54 [facility] Comment on above: Order Comment: 109.1 Performed By: #### L 100.0100 ####[facility] [address] [place], [address] Hemoglobin (Bld) [Mass/Vol] 13.4 g/dL Normal 13.0-16.5 [facility] Comment on above: Order Comment: 109.1 Performed By: #### L 100.0100 ####[facility] [address], [address] IG% 0.400 Normal 0.0-0.9 [facility] Comment on above: Order Comment: 109.1 Result Comment: IG% - Immature Granulocytes (promyelocytes, myelocytes andmetamyelocytes) > 1% indicates that a LEFT SHIFT is Present. Performed By: #### L 100.0100 ####[facility] [address] [place], [address] Lymphocytes/100 WBC (Bld) 22.9 % Normal 19-41 [facility] Comment on above: Order Comment: 109.1 Performed By: #### L 100.0100 ####[facility] [address] [place], [address] MCH (RBC) [Entitic mass] 29.9 pg Normal 27.0-32.0 [facility] Comment on above: Order Comment: 109.1 Performed By: #### L 100.0100 ####[facility] [address] [place], [address] MCHC (RBC) [Mass/Vol] 33.4 g/dL Normal 32-36 [facility] Comment on above: Order Comment: 109.1 Performed By: #### L 100.0100 ####[facility] [address] [place], [address] MCV (RBC) [Entitic vol] 89.5 fL Normal 80-94 [facility] Comment on above: Order Comment: 109.1 Performed By: #### L 100.0100 ####[facility] [address], [address] Monocytes/100 WBC (Bld) 10.8 % High 0-10 [facility] Comment on above: Order Comment: 109.1 Performed By: #### L 100.0100 ####[facility] [address] [place], [address] Neutrophils/100 WBC (Bld) 64.6 % Normal 47-70 [facility] Comment on above: Order Comment: 109.1 Performed By: #### L 100.0100 ####[facility] [address] [place], [address] Nucleated RBC (Bld) [#/Vol] 0 10*3/uL Normal 0-5 [facility] Comment on above: Order Comment: 109.1 Performed By: #### L 100.0100 ####[facility] [address] [place], [address] Platelet mean volume (Bld) [Entitic vol] 11.0 fL Normal 6.2-12.0 [facility] Comment on above: Order Comment: 109.1 Performed By: #### L 100.0100 ####[facility] [address] [place], [address] Platelets (Bld) [#/Vol] 243 10*3/uL Normal 150-450 [facility] Comment on above: Order Comment: 109.1 Performed By: #### L 100.0100 ####[facility] [address] [place], [address] RBC (Bld) [#/Vol] 4.48 10*6/uL Low 4.6-6.2 [facility] Comment on above: Order Comment: 109.1 Performed By: #### L 100.0100 ####[facility] [address] [place], [address] RDW SD 43.0 fl Normal 35.1-43.9 [facility] Comment on above: Order Comment: 109.1 Performed By: #### L 100.0100 ####[facility] [address] [place], [address] WBC (Bld) [#/Vol] 9.3 10*3/uL Normal 4.4-11.0 [facility] Comment on above: Order Comment: 109.1 Performed By: #### L 100.0100 ####[facility] [address] [place], [address] CBC W/Diff, Automatedon - Absolute Lymph 2.19 X10 3/uL Normal 0.83-4.51 [facility] Comment on above: Order Comment: 109.1 Performed By: #### L 100.0100 ####[facility] [address] [place], [address] Absolute Neut 6.3 X10 3/uL Normal 2.0-7.7 [facility] Comment on above: Order Comment: 109.1 Performed By: #### L 100.0100 ####[facility] [address] [place], [address] Basophils/100 WBC (Bld) 0.3 % Normal 0-1 [facility] Comment on above: Order Comment: 109.1 Performed By: #### L 100.0100 ####[facility] [address] [place], [address] Eosinophils/100 WBC (Bld) 0.6 % Normal 0-5 [facility] Comment on above: Order Comment: 109.1 Performed By: #### L 100.0100 ####[facility] [address] [place], [address] Erythrocyte distribution width (RBC) [Ratio] 13.3 % Normal 11.6-14.6 [facility] Comment on above: Order Comment: 109.1 Performed By: #### L 100.0100 ####[facility] [address] [place], [address] Hematocrit (Bld) [Volume fraction] 38.2 % Low 40-54 [facility] Comment on above: Order Comment: 109.1 Performed By: #### L 100.0100 ####[facility] [address] [place], [address] Hemoglobin (Bld) [Mass/Vol] 12.9 g/dL Low 13.0-16.5 [facility] Comment on above: Order Comment: 109.1 Performed By: #### L 100.0100 ####[facility] [address] [place], [address] IG% 0.400 Normal 0.0-0.9 [facility] Comment on above: Order Comment: 109.1 Result Comment: IG% - Immature Granulocytes (promyelocytes, myelocytes andmetamyelocytes) > 1% indicates that a LEFT SHIFT is Present. Performed By: #### L 100.0100 ####[facility] [address] [place], [address] Lymphocytes/100 WBC (Bld) 23.7 % Normal 19-41 [facility] Comment on above: Order Comment: 109.1 Performed By: #### L 100.0100 ####[facility] [address] [place], [address] MCH (RBC) [Entitic mass] 30.2 pg Normal 27.0-32.0 [facility] Comment on above: Order Comment: 109.1 Performed By: #### L 100.0100 ####[facility] [address] [place], [address] MCHC (RBC) [Mass/Vol] 33.8 g/dL Normal 32-36 [facility] Comment on above: Order Comment: 109.1 Performed By: #### L 100.0100 ####[facility] [address] [place], [address] MCV (RBC) [Entitic vol] 89.5 fL Normal 80-94 [facility] Comment on above: Order Comment: 109.1 Performed By: #### L 100.0100 ####[facility] [address] [place], [address] Monocytes/100 WBC (Bld) 6.8 % Normal 0-10 [facility] Comment on above: Order Comment: 109.1 Performed By: #### L 100.0100 ####[facility] [address] [place], [address] Neutrophils/100 WBC (Bld) 68.2 % Normal 47-70 [facility] Comment on above: Order Comment: 109.1 Performed By: #### L 100.0100 ####[facility] [address] [place], [address] Nucleated RBC (Bld) [#/Vol] 0 10*3/uL Normal 0-5 [facility] Comment on above: Order Comment: 109.1 Performed By: #### L 100.0100 ####[facility] [address] [place], [address] Platelet mean volume (Bld) [Entitic vol] 10.6 fL Normal 6.2-12.0 [facility] Comment on above: Order Comment: 109.1 Performed By: #### L 100.0100 ####[facility] [address] [place], [address] Platelets (Bld) [#/Vol] 247 10*3/uL Normal 150-450 [facility] Comment on above: Order Comment: 109.1 Performed By: #### L 100.0100 ####[facility] [address] [place], [address] RBC (Bld) [#/Vol] 4.27 10*6/uL Low 4.6-6.2 [facility] Comment on above: Order Comment: 109.1 Performed By: #### L 100.0100 ####[facility] [address] [place], [address] RDW SD 43.2 fl Normal 35.1-43.9 [facility] Comment on above: Order Comment: 109.1 Performed By: #### L 100.0100 ####[facility] [address] [place], [address] WBC (Bld) [#/Vol] 9.3 10*3/uL Normal 4.4-11.0 [facility] Comment on above: Order Comment: 109.1 Performed By: #### L 100.0100 ####[facility] [address] [place], [address] CBC W/Diff, Automatedon 12-31 Absolute Lymph 2.11 X10 3/uL Normal 0.83-4.51 [facility] Comment on above: Order Comment: 109.1 Performed By: #### L 100.0100 ####[facility] [address] [place], [address] Absolute Neut 4.5 X10 3/uL Normal 2.0-7.7 [facility] Comment on above: Order Comment: 109.1 Performed By: #### L 100.0100 ####[facility] [address] [place], [address] Basophils/100 WBC (Bld) 0.5 % Normal 0-1 [facility] Comment on above: Order Comment: 109.1 Performed By: #### L 100.0100 ####[facility] [address] [place], [address] Eosinophils/100 WBC (Bld) 1.1 % Normal 0-5 [facility] Comment on above: Order Comment: 109.1 Performed By: #### L 100.0100 ####[facility] [address] [place], [address] Erythrocyte distribution width (RBC) [Ratio] 13.1 % Normal 11.6-14.6 [facility] Comment on above: Order Comment: 109.1 Performed By: #### L 100.0100 ####[facility] [address] [place], [address] Hematocrit (Bld) [Volume fraction] 36.3 % Low 40-54 [facility] Comment on above: Order Comment: 109.1 Performed By: #### L 100.0100 ####[facility] [address] [place], [address] Hemoglobin (Bld) [Mass/Vol] 11.6 g/dL Low 13.0-16.5 [facility] Comment on above: Order Comment: 109.1 Performed By: #### L 100.0100 ####[facility] [address] [place], [address] IG% 0.700 Normal 0.0-0.9 [facility] Comment on above: Order Comment: 109.1 Result Comment: IG% - Immature Granulocytes (promyelocytes, myelocytes andmetamyelocytes) > 1% indicates that a LEFT SHIFT is Present. Performed By: #### L 100.0100 ####[facility] [address] [place], [address] Lymphocytes/100 WBC (Bld) 27.9 % Normal 19-41 [facility] Comment on above: Order Comment: 109.1 Performed By: #### L 100.0100 ####[facility] [address] [place], [address] MCH (RBC) [Entitic mass] 29.6 pg Normal 27.0-32.0 [facility] Comment on above: Order Comment: 109.1 Performed By: #### L 100.0100 ####[facility] [address] [place], [address] MCHC (RBC) [Mass/Vol] 32.0 g/dL Normal 32-36 [facility] Comment on above: Order Comment: 109.1 Performed By: #### L 100.0100 ####[facility] [address] [place], [address] MCV (RBC) [Entitic vol] 92.6 fL Normal 80-94 [facility] Comment on above: Order Comment: 109.1 Performed By: #### L 100.0100 ####[facility] [address] [place], [address] Monocytes/100 WBC (Bld) 10.1 % High 0-10 [facility] Comment on above: Order Comment: 109.1 Performed By: #### L 100.0100 ####[facility] [address] [place], [address] Neutrophils/100 WBC (Bld) 59.7 % Normal 47-70 [facility] Comment on above: Order Comment: 109.1 Performed By: #### L 100.0100 ####[facility] [address] [place], [address] Nucleated RBC (Bld) [#/Vol] 0 10*3/uL Normal 0-5 [facility] Comment on above: Order Comment: 109.1 Performed By: #### L 100.0100 ####[facility] [address] [place], [address] Platelet mean volume (Bld) [Entitic vol] 10.6 fL Normal 6.2-12.0 [facility] Comment on above: Order Comment: 109.1 Performed By: #### L 100.0100 ####[facility] [address] [place], [address] Platelets (Bld) [#/Vol] 248 10*3/uL Normal 150-450 [facility] Comment on above: Order Comment: 109.1 Performed By: #### L 100.0100 ####[facility] [address] [place], [address] RBC (Bld) [#/Vol] 3.92 10*6/uL Low 4.6-6.2 [facility] Comment on above: Order Comment: 109.1 Performed By: #### L 100.0100 ####[facility] [address] [place], [address] RDW SD 44.6 fl High 35.1-43.9 [facility] Comment on above: Order Comment: 109.1 Performed By: #### L 100.0100 ####[facility] [address] [place], [address] WBC (Bld) [#/Vol] 7.6 10*3/uL Normal 4.4-11.0 [facility] Comment on above: Order Comment: 109.1 Performed By: #### L 100.0100 ####[facility] [address] [place], [address] CBC W/Diff, Automatedon 09-05 05-2024 Absolute Lymph 1.91 X10 3/uL Normal 0.83-4.51 [facility] Comment on above: Order Comment: 109-1 Performed By: #### L 100.0100 ####[facility] [address] [place], [address] Absolute Neut 6.4 X10 3/uL Normal 2.0-7.7 [facility] Comment on above: Order Comment: 109-1 Performed By: #### L 100.0100 ####[facility] [address], [address] Basophils/100 WBC (Bld) 0.5 % Normal 0-1 [facility] Comment on above: Order Comment: 109-1 Performed By: #### L 100.0100 ####[facility] [address] [place], [address] Eosinophils/100 WBC (Bld) 0.8 % Normal 0-5 [facility] Comment on above: Order Comment: 109-1 Performed By: #### L 100.0100 ####[facility] [address] [place], [address] Erythrocyte distribution width (RBC) [Ratio] 13.2 % Normal 11.6-14.6 [facility] Comment on above: Order Comment: 109-1 Performed By: #### L 100.0100 ####[facility] [address] [place], [address] Hematocrit (Bld) [Volume fraction] 40.2 % Normal 40-54 [facility] Comment on above: Order Comment: 109-1 Performed By: #### L 100.0100 ####[facility] [address], [address] Hemoglobin (Bld) [Mass/Vol] 13.3 g/dL Normal 13.0-16.5 [facility] Comment on above: Order Comment: 109-1 Performed By: #### L 100.0100 ####[facility] [address] [place], [address] IG% 0.300 Normal 0.0-0.9 [facility] Comment on above: Order Comment: 109-1 Result Comment: IG% - Immature Granulocytes (promyelocytes, myelocytes andmetamyelocytes) > 1% indicates that a LEFT SHIFT is Present. Performed By: #### L 100.0100 ####[facility] [address] [place], [address] Lymphocytes/100 WBC (Bld) 20.7 % Normal 19-41 [facility] Comment on above: Order Comment: 109-1 Performed By: #### L 100.0100 ####[facility] [address] [place], [address] MCH (RBC) [Entitic mass] 30.4 pg Normal 27.0-32.0 [facility] Comment on above: Order Comment: 109-1 Performed By: #### L 100.0100 ####[facility] [address] [place], [address] MCHC (RBC) [Mass/Vol] 33.1 g/dL Normal 32-36 [facility] Comment on above: Order Comment: 109-1 Performed By: #### L 100.0100 ####[facility] [address] [place], [address] MCV (RBC) [Entitic vol] 92.0 fL Normal 80-94 [facility] Comment on above: Order Comment: 109-1 Performed By: #### L 100.0100 ####[facility] [address] [place], [address] Monocytes/100 WBC (Bld) 8.1 % Normal 0-10 [facility] Comment on above: Order Comment: 109-1 Performed By: #### L 100.0100 ####[facility] [address] [place], [address] Neutrophils/100 WBC (Bld) 69.6 % Normal 47-70 [facility] Comment on above: Order Comment: 109-1 Performed By: #### L 100.0100 ####[facility] [address] [place], [address] Nucleated RBC (Bld) [#/Vol] 0 10*3/uL Normal 0-5 [facility] Comment on above: Order Comment: 109-1 Performed By: #### L 100.0100 ####[facility] [address] [place], [address] Platelet mean volume (Bld) [Entitic vol] 11.5 fL Normal 6.2-12.0 [facility] Comment on above: Order Comment: 109-1 Performed By: #### L 100.0100 ####[facility] [address] [place], [address] Platelets (Bld) [#/Vol] 198 10*3/uL Normal 150-450 [facility] Comment on above: Order Comment: 109-1 Performed By: #### L 100.0100 ####[facility] [address] [place], [address] RBC (Bld) [#/Vol] 4.37 10*6/uL Low 4.6-6.2 [facility] Comment on above: Order Comment: 109-1 Performed By: #### L 100.0100 ####[facility] [address] [place], [address] RDW SD 44.6 fl High 35.1-43.9 [facility] Comment on above: Order Comment: 109-1 Performed By: #### L 100.0100 ####[facility] [address] [place], [address] WBC (Bld) [#/Vol] 9.2 10*3/uL Normal 4.4-11.0 [facility] Comment on above: Order Comment: 109-1 Performed By: #### L 100.0100 ####[facility] [address] [place], [address] Basic Metabolic Profile (BMP )on 01-10-2025 BUN/CRE 27.7 RATIO High 10-20 [facility] Comment on above: Order Comment: 109.1 Performed By: #### L 500.2500 ####[facility] [address] [place], [address] Calcium [Mass/Vol] 8.2 mg/dL Normal 7.6-11.0 [facility] Comment on above: Order Comment: 109.1 Performed By: #### L 500.2500 ####[facility] [address] [place], [address] Chloride [Moles/Vol] 106 mmol/L Normal 98-108 [facility] Comment on above: Order Comment: 109.1 Performed By: #### L 500.2500 ####[facility] [address] [place], [address] CO2 [Moles/Vol] 25.6 mmol/L Normal 21.0-32.0 [facility] Comment on above: Order Comment: 109.1 Performed By: #### L 500.2500 ####[facility] [address] [place], [address] Creatinine [Mass/Vol] 0.54 mg/dL Low 0.70-1.20 [facility] Comment on above: Order Comment: 109.1 Performed By: #### L 500.2500 ####[facility] [address] [place], [address] GAP 9 Normal 5-15 [facility] Comment on above: Order Comment: 109.1 Performed By: #### L 500.2500 ####[facility] [address] [place], [address] GFR/1.73 sq M.predicted among non-blacks MDRD (S/P/Bld) [Vol rate/Area] 109 mL/min/{1.73_m2} Normal >60 [facility] Comment on above: Order Comment: 109.1 Result Comment: mL/m in/1.73m2 CKD-EPI Creatinine Equation (2020) Performed By: #### L 500.2500 ####[facility] [address] [place], [address] Glucose [Mass/Vol] 126 mg/dL High 70-99 [facility] Comment on above: Order Comment: 109.1 Performed By: #### L 500.2500 ####[facility] [address] [place], [address] Potassium [Moles/Vol] 3.8 mmol/L Normal 3.3-5.1 [facility] System Comment on above: Order Comment: 109.1 Performed By: #### L 500.2500 ####[facility] [address] [place], [address] Sodium [Moles/Vol] 140 mmol/L Normal 133-145 [facility] Comment on above: Order Comment: 109.1 Performed By: #### L 500.2500 ####[facility] [address] [place], [address] Urea nitrogen [Mass/Vol] 15 mg/dL Normal 4-19 [facility] Comment on above: Order Comment: 109.1 Performed By: #### L 500.2500 ####[facility] [address] [place], [address] CBC W/Diff, Automatedon 09-0 PLT EST ADEQUATE Normal ADEQ [facility] Comment on above: Order Comment: 109.1 Performed By: #### L 100.0100 ####[facility] [address] [place], [address] CBC W/Diff, Automatedon 09-0 2-2024 Absolute Lymph 1.87 X10 3/uL Normal 0.83-4.51 [facility] Comment on above: Order Comment: 109.1 Performed By: #### L 100.0100 ####[facility] [address] [place], [address] Absolute Neut 5.3 X10 3/uL Normal 2.0-7.7 [facility] Comment on above: Order Comment: 109.1 Performed By: #### L 100.0100 ####[facility] [address] [place], [address] Basophils/100 WBC (Bld) 0.4 % Normal 0-1 [facility] Comment on above: Order Comment: 109.1 Performed By: #### L 100.0100 ####[facility] [address] [place], [address] Eosinophils/100 WBC (Bld) 0.6 % Normal 0-5 [facility] Comment on above: Order Comment: 109.1 Performed By: #### L 100.0100 ####[facility] [address] [place], [address] Erythrocyte distribution width (RBC) [Ratio] 13.1 % Normal 11.6-14.6 [facility] Comment on above: Order Comment: 109.1 Performed By: #### L 100.0100 ####[facility] [address] [place], [address] Hematocrit (Bld) [Volume fraction] 41.3 % Normal 40-54 [facility] Comment on above: Order Comment: 109.1 Performed By: #### L 100.0100 ####[facility] [address] [place], [address] Hemoglobin (Bld) [Mass/Vol] 13.4 g/dL Normal 13.0-16.5 [facility] Comment on above: Order Comment: 109.1 Performed By: #### L 100.0100 ####[facility] [address] [place], [address] IG% 0.400 Normal 0.0-0.9 [facility] Comment on above: Order Comment: 109.1 Result Comment: IG% - Immature Granulocytes (promyelocytes, myelocytes andmetamyelocytes) > 1% indicates that a LEFT SHIFT is Present. Performed By: #### L 100.0100 ####[facility] [address] [place], [address] Lymphocytes/100 WBC (Bld) 23.4 % Normal 19-41 [facility] Comment on above: Order Comment: 109.1 Performed By: #### L 100.0100 ####[facility] [address] [place], [address] MCH (RBC) [Entitic mass] 30.0 pg Normal 27.0-32.0 [facility] Comment on above: Order Comment: 109.1 Performed By: #### L 100.0100 ####[facility] [address] [place], [address] MCHC (RBC) [Mass/Vol] 32.4 g/dL Normal 32-36 [facility] Comment on above: Order Comment: 109.1 Performed By: #### L 100.0100 ####[facility] [address] [place], [address] MCV (RBC) [Entitic vol] 92.4 fL Normal 80-94 [facility] Comment on above: Order Comment: 109.1 Performed By: #### L 100.0100 ####[facility] [address] [place], [address] Monocytes/100 WBC (Bld) 9.0 % Normal 0-10 [facility] Comment on above: Order Comment: 109.1 Performed By: #### L 100.0100 ####[facility] [address] [place], [address] Neutrophils/100 WBC (Bld) 66.2 % Normal 47-70 [facility] Comment on above: Order Comment: 109.1 Performed By: #### L 100.0100 ####[facility] [address] [place], [address] Nucleated RBC (Bld) [#/Vol] 0 10*3/uL Normal 0-5 [facility] Comment on above: Order Comment: 109.1 Performed By: #### L 100.0100 ####[facility] [address] [place], [address] Platelet mean volume (Bld) [Entitic vol] 10.9 fL Normal 6.2-12.0 [facility] Comment on above: Order Comment: 109.1 Performed By: #### L 100.0100 ####[facility] [address] [place], [address] Platelets (Bld) [#/Vol] 209 10*3/uL Normal 150-450 [facility] Comment on above: Order Comment: 109.1 Performed By: #### L 100.0100 ####[facility] [address] [place], [address] RBC (Bld) [#/Vol] 4.47 10*6/uL Low 4.6-6.2 [facility] Comment on above: Order Comment: 109.1 Performed By: #### L 100.0100 ####[facility] [address] [place], [address] RDW SD 43.8 fl Normal 35.1-43.9 [facility] Comment on above: Order Comment: 109.1 Performed By: #### L 100.0100 ####[facility] [address] [place], [address] WBC (Bld) [#/Vol] 8.0 10*3/uL Normal 4.4-11.0 [facility] Comment on above: Order Comment: 109.1 Performed By: #### L 100.0100 ####[facility] [address] [place], [address] CBC W/Diff, Automatedon 08-2 Absolute Lymph 1.98 X10 3/uL Normal 0.83-4.51 [facility] Comment on above: Order Comment: 109-1 Performed By: #### L 100.0100 ####[facility] [address] [place], [address] Absolute Neut 4.2 X10 3/uL Normal 2.0-7.7 [facility] Comment on above: Order Comment: 109-1 Performed By: #### L 100.0100 ####[facility] [address] [place], [address] Basophils/100 WBC (Bld) 0.6 % Normal 0-1 [facility] Comment on above: Order Comment: 109-1 Performed By: #### L 100.0100 ####[facility] [address] [place], [address] Eosinophils/100 WBC (Bld) 0.9 % Normal 0-5 [facility] Comment on above: Order Comment: 109-1 Performed By: #### L 100.0100 ####[facility] [address] [place], [address] Erythrocyte distribution width (RBC) [Ratio] 13.0 % Normal 11.6-14.6 [facility] Comment on above: Order Comment: 109-1 Performed By: #### L 100.0100 ####[facility] [address] [place], [address] Hematocrit (Bld) [Volume fraction] 39.9 % Low 40-54 [facility] Comment on above: Order Comment: 109-1 Performed By: #### L 100.0100 ####[facility] [address] [place], [address] Hemoglobin (Bld) [Mass/Vol] 13.4 g/dL Normal 13.0-16.5 [facility] Comment on above: Order Comment: 109-1 Performed By: #### L 100.0100 ####[facility] [address] [place], [address] IG% 0.300 Normal 0.0-0.9 [facility] Comment on above: Order Comment: 109-1 Result Comment: IG% - Immature Granulocytes (promyelocytes, myelocytes andmetamyelocytes) > 1% indicates that a LEFT SHIFT is Present. Performed By: #### L 100.0100 ####[facility] [address] [place], [address] Lymphocytes/100 WBC (Bld) 28.9 % Normal 19-41 [facility] Comment on above: Order Comment: 109-1 Performed By: #### L 100.0100 ####[facility] [address] [place], [address] MCH (RBC) [Entitic mass] 30.9 pg Normal 27.0-32.0 [facility] Comment on above: Order Comment: 109-1 Performed By: #### L 100.0100 ####[facility] [address] [place], [address] MCHC (RBC) [Mass/Vol] 33.6 g/dL Normal 32-36 [facility] Comment on above: Order Comment: 109-1 Performed By: #### L 100.0100 ####[facility] [address] [place], [address] MCV (RBC) [Entitic vol] 91.9 fL Normal 80-94 [facility] Comment on above: Order Comment: 109-1 Performed By: #### L 100.0100 ####[facility] [address] [place], [address] Monocytes/100 WBC (Bld) 8.0 % Normal 0-10 [facility] Comment on above: Order Comment: 109-1 Performed By: #### L 100.0100 ####[facility] [address] [place], [address] Neutrophils/100 WBC (Bld) 61.3 % Normal 47-70 [facility] Comment on above: Order Comment: 109-1 Performed By: #### L 100.0100 ####[facility] [address] [place], [address] Nucleated RBC (Bld) [#/Vol] 0 10*3/uL Normal 0-5 [facility] Comment on above: Order Comment: 109-1 Performed By: #### L 100.0100 ####[facility] [address] [place], [address] Platelet mean volume (Bld) [Entitic vol] 11.7 fL Normal 6.2-12.0 [facility] Comment on above: Order Comment: 109-1 Performed By: #### L 100.0100 ####[facility] [address] [place], [address] Platelets (Bld) [#/Vol] 201 10*3/uL Normal 150-450 [facility] Comment on above: Order Comment: 109-1 Performed By: #### L 100.0100 ####[facility] [address] [place], [address] RBC (Bld) [#/Vol] 4.34 10*6/uL Low 4.6-6.2 [facility] Comment on above: Order Comment: 109-1 Performed By: #### L 100.0100 ####[facility] [address] [place], [address] RDW SD 43.4 fl Normal 35.1-43.9 [facility] Comment on above: Order Comment: 109-1 Performed By: #### L 100.0100 ####[facility] [address] [place], [address] WBC (Bld) [#/Vol] 6.8 10*3/uL Normal 4.4-11.0 [facility] Comment on above: Order Comment: 109-1 Performed By: #### L 100.0100 ####[facility] [address] [place], [address] CBC W/Diff, Automatedon 11-29-2024 Absolute Lymph 2.15 X10 3/uL Normal 0.83-4.51 [facility] Comment on above: Order Comment: 109.1 Performed By: #### L 100.0100 ####[facility] [address] [place], [address] Absolute Neut 4.1 X10 3/uL Normal 2.0-7.7 [facility] Comment on above: Order Comment: 109.1 Performed By: #### L 100.0100 ####[facility] [address] [place], [address] Basophils/100 WBC (Bld) 0.7 % Normal 0-1 [facility] Comment on above: Order Comment: 109.1 Performed By: #### L 100.0100 ####[facility] [address] [place], [address] Eosinophils/100 WBC (Bld) 0.9 % Normal 0-5 [facility] Comment on above: Order Comment: 109.1 Performed By: #### L 100.0100 ####[facility] [address] [place], [address] Erythrocyte distribution width (RBC) [Ratio] 13.2 % Normal 11.6-14.6 [facility] Comment on above: Order Comment: 109.1 Performed By: #### L 100.0100 ####[facility] [address] [place], [address] Hematocrit (Bld) [Volume fraction] 38.7 % Low 40-54 [facility] Comment on above: Order Comment: 109.1 Performed By: #### L 100.0100 ####[facility] [address] [place], [address] Hemoglobin (Bld) [Mass/Vol] 12.8 g/dL Low 13.0-16.5 [facility] Comment on above: Order Comment: 109.1 Performed By: #### L 100.0100 ####[facility] [address] [place], [address] IG% 0.300 Normal 0.0-0.9 [facility] Comment on above: Order Comment: 109.1 Result Comment: IG% - Immature Granulocytes (promyelocytes, myelocytes andmetamyelocytes) > 1% indicates that a LEFT SHIFT is Present. Performed By: #### L 100.0100 ####[facility] [address] [place], [address] Lymphocytes/100 WBC (Bld) 30.7 % Normal 19-41 [facility] Comment on above: Order Comment: 109.1 Performed By: #### L 100.0100 ####[facility] [address] [place], [address] MCH (RBC) [Entitic mass] 30.3 pg Normal 27.0-32.0 [facility] Comment on above: Order Comment: 109.1 Performed By: #### L 100.0100 ####[facility] [address] [place], [address] MCHC (RBC) [Mass/Vol] 33.1 g/dL Normal 32-36 [facility] Comment on above: Order Comment: 109.1 Performed By: #### L 100.0100 ####[facility] [address] [place], [address] MCV (RBC) [Entitic vol] 91.7 fL Normal 80-94 [facility] Comment on above: Order Comment: 109.1 Performed By: #### L 100.0100 ####[facility] [address] [place], [address] Monocytes/100 WBC (Bld) 8.6 % Normal 0-10 [facility] Comment on above: Order Comment: 109.1 Performed By: #### L 100.0100 ####[facility] [address] [place], [address] Neutrophils/100 WBC (Bld) 58.8 % Normal 47-70 [facility] Comment on above: Order Comment: 109.1 Performed By: #### L 100.0100 ####[facility] [address] [place], [address] Nucleated RBC (Bld) [#/Vol] 0 10*3/uL Normal 0-5 [facility] Comment on above: Order Comment: 109.1 Performed By: #### L 100.0100 ####[facility] [address] [place], [address] Platelet mean volume (Bld) [Entitic vol] 11.3 fL Normal 6.2-12.0 [facility] Comment on above: Order Comment: 109.1 Performed By: #### L 100.0100 ####[facility] [address] [place], [address] Platelets (Bld) [#/Vol] 202 10*3/uL Normal 150-450 [facility] Comment on above: Order Comment: 109.1 Performed By: #### L 100.0100 ####[facility] [address] [place], [address] RBC (Bld) [#/Vol] 4.22 10*6/uL Low 4.6-6.2 [facility] Comment on above: Order Comment: 109.1 Performed By: #### L 100.0100 ####[facility] [address] [place], [address] RDW SD 44.4 fl High 35.1-43.9 [facility] Comment on above: Order Comment: 109.1 Performed By: #### L 100.0100 ####[facility] [address] [place], [address] WBC (Bld) [#/Vol] 7.0 10*3/uL Normal 4.4-11.0 [facility] Comment on above: Order Comment: 109.1 Performed By: #### L 100.0100 ####[facility] [address] [place], [address] CBC W/Diff, Automatedon 11-29 Absolute Lymph 2.30 X10 3/uL Normal 0.83-4.51 [facility] Comment on above: Order Comment: 109.1 Performed By: #### L 100.0100 ####[facility] [address] [place], [address] Absolute Neut 4.8 X10 3/uL Normal 2.0-7.7 [facility] Comment on above: Order Comment: 109.1 Performed By: #### L 100.0100 ####[facility] [address] [place], [address] Basophils/100 WBC (Bld) 0.5 % Normal 0-1 [facility] Comment on above: Order Comment: 109.1 Performed By: #### L 100.0100 ####[facility] [address] [place], [address] Eosinophils/100 WBC (Bld) 1.0 % Normal 0-5 [facility] Comment on above: Order Comment: 109.1 Performed By: #### L 100.0100 ####[facility] [address] [place], [address] Erythrocyte distribution width (RBC) [Ratio] 13.0 % Normal 11.6-14.6 [facility] Comment on above: Order Comment: 109.1 Performed By: #### L 100.0100 ####[facility] [address] [place], [address] Hematocrit (Bld) [Volume fraction] 40.3 % Normal 40-54 [facility] Comment on above: Order Comment: 109.1 Performed By: #### L 100.0100 ####[facility] [address] [place], [address] Hemoglobin (Bld) [Mass/Vol] 12.8 g/dL Low 13.0-16.5 [facility] Comment on above: Order Comment: 109.1 Performed By: #### L 100.0100 ####[facility] [address] [place], [address] IG% 0.400 Normal 0.0-0.9 [facility] Comment on above: Order Comment: 109.1 Result Comment: IG% - Immature Granulocytes (promyelocytes, myelocytes andmetamyelocytes) > 1% indicates that a LEFT SHIFT is Present. Performed By: #### L 100.0100 ####[facility] [address] [place], [address] Lymphocytes/100 WBC (Bld) 29.2 % Normal 19-41 [facility] Comment on above: Order Comment: 109.1 Performed By: #### L 100.0100 ####[facility] [address] [place], [address] MCH (RBC) [Entitic mass] 29.6 pg Normal 27.0-32.0 [facility] Comment on above: Order Comment: 109.1 Performed By: #### L 100.0100 ####[facility] [address] [place], [address] MCHC (RBC) [Mass/Vol] 31.8 g/dL Low 32-36 [facility] Comment on above: Order Comment: 109.1 Performed By: #### L 100.0100 ####[facility] [address] [place], [address] MCV (RBC) [Entitic vol] 93.1 fL Normal 80-94 [facility] Comment on above: Order Comment: 109.1 Performed By: #### L 100.0100 ####[facility] [address] [place], [address] Monocytes/100 WBC (Bld) 7.7 % Normal 0-10 [facility] Comment on above: Order Comment: 109.1 Performed By: #### L 100.0100 ####[facility] [address] [place], [address] Neutrophils/100 WBC (Bld) 61.2 % Normal 47-70 [facility] Comment on above: Order Comment: 109.1 Performed By: #### L 100.0100 ####[facility] [address] [place], [address] Nucleated RBC (Bld) [#/Vol] 0 10*3/uL Normal 0-5 [facility] Comment on above: Order Comment: 109.1 Performed By: #### L 100.0100 ####[facility] [address] [place], [address] Platelet mean volume (Bld) [Entitic vol] 11.5 fL Normal 6.2-12.0 [facility] Comment on above: Order Comment: 109.1 Performed By: #### L 100.0100 ####[facility] [address] [place], [address] Platelets (Bld) [#/Vol] 194 10*3/uL Normal 150-450 [facility] Comment on above: Order Comment: 109.1 Performed By: #### L 100.0100 ####[facility] [address] [place], [address] RBC (Bld) [#/Vol] 4.33 10*6/uL Low 4.6-6.2 [facility] Comment on above: Order Comment: 109.1 Performed By: #### L 100.0100 ####[facility] [address] [place], [address] RDW SD 44.3 fl High 35.1-43.9 [facility] Comment on above: Order Comment: 109.1 Performed By: #### L 100.0100 ####[facility] [address] [place], [address] WBC (Bld) [#/Vol] 7.9 10*3/uL Normal 4.4-11.0 [facility] Comment on above: Order Comment: 109.1 Performed By: #### L 100.0100 ####[facility] [address] [place], [address] CBC W/Diff, Automatedon 08-0 4-2025 Absolute Lymph 2.83 X10 3/uL Normal 0.83-4.51 [facility] Comment on above: Order Comment: 109.1 Performed By: #### L 100.0100 ####[facility] [address] [place], [address] Absolute Neut 4.7 X10 3/uL Normal 2.0-7.7 [facility] Comment on above: Order Comment: 109.1 Performed By: #### L 100.0100 ####[facility] [address] [place], [address] Basophils/100 WBC (Bld) 0.8 % Normal 0-1 [facility] Comment on above: Order Comment: 109.1 Performed By: #### L 100.0100 ####[facility] [address] [place], [address] Eosinophils/100 WBC (Bld) 0.9 % Normal 0-5 [facility] Comment on above: Order Comment: 109.1 Performed By: #### L 100.0100 ####[facility] [address] [place], [address] Erythrocyte distribution width (RBC) [Ratio] 13.2 % Normal 11.6-14.6 [facility] Comment on above: Order Comment: 109.1 Performed By: #### L 100.0100 ####[facility] [address] [place], [address] Hematocrit (Bld) [Volume fraction] 41.4 % Normal 40-54 [facility] Comment on above: Order Comment: 109.1 Performed By: #### L 100.0100 ####[facility] [address] [place], [address] Hemoglobin (Bld) [Mass/Vol] 13.2 g/dL Normal 13.0-16.5 [facility] Comment on above: Order Comment: 109.1 Performed By: #### L 100.0100 ####[facility] [address] [place], [address] IG% 0.300 Normal 0.0-0.9 [facility] Comment on above: Order Comment: 109.1 Result Comment: IG% - Immature Granulocytes (promyelocytes, myelocytes andmetamyelocytes) > 1% indicates that a LEFT SHIFT is Present. Performed By: #### L 100.0100 ####[facility] [address] [place], [address] Lymphocytes/100 WBC (Bld) 31.3 % Normal 19-41 [facility] Comment on above: Order Comment: 109.1 Performed By: #### L 100.0100 ####[facility] [address] [place], [address] MCH (RBC) [Entitic mass] 30.1 pg Normal 27.0-32.0 [facility] Comment on above: Order Comment: 109.1 Performed By: #### L 100.0100 ####[facility] [address] [place], [address] MCHC (RBC) [Mass/Vol] 31.9 g/dL Low 32-36 [facility] Comment on above: Order Comment: 109.1 Performed By: #### L 100.0100 ####[facility] [address] [place], [address] MCV (RBC) [Entitic vol] 94.5 fL High 80-94 [facility] Comment on above: Order Comment: 109.1 Performed By: #### L 100.0100 ####[facility] [address] [place], [address] Monocytes/100 WBC (Bld) 14.8 % High 0-10 [facility] Comment on above: Order Comment: 109.1 Performed By: #### L 100.0100 ####[facility] [address] [place], [address] Neutrophils/100 WBC (Bld) 51.9 % Normal 47-70 [facility] Comment on above: Order Comment: 109.1 Performed By: #### L 100.0100 ####[facility] [address] [place], [address] Nucleated RBC (Bld) [#/Vol] 0 10*3/uL Normal 0-5 [facility] Comment on above: Order Comment: 109.1 Performed By: #### L 100.0100 ####[facility] [address], [address] Platelet mean volume (Bld) [Entitic vol] 11.2 fL Normal 6.2-12.0 [facility] Comment on above: Order Comment: 109.1 Performed By: #### L 100.0100 ####[facility] [address] [place], [address] Platelets (Bld) [#/Vol] 182 10*3/uL Normal 150-450 [facility] Comment on above: Order Comment: 109.1 Performed By: #### L 100.0100 ####[facility] [address] [place], [address] RBC (Bld) [#/Vol] 4.38 10*6/uL Low 4.6-6.2 [facility] Comment on above: Order Comment: 109.1 Performed By: #### L 100.0100 ####[facility] [address] [place], [address] RDW SD 45.5 fl High 35.1-43.9 [facility] Comment on above: Order Comment: 109.1 Performed By: #### L 100.0100 ####[facility] [address] [place], [address] WBC (Bld) [#/Vol] 9.1 10*3/uL Normal 4.4-11.0 [facility] Comment on above: Order Comment: 109.1 Performed By: #### L 100.0100 ####[facility] [address] [place], [address] Absolute lymphocyte countOrd ered By: Renard Burgos on 11-25-2024 Lymphocytes Auto (Unsp spec) [#/Vol] 1.80 10*3/uL 0.83-4.51 [facility] Absolute neutrophil countOrd ered By: Renard Burgos on 11-25-2024 Neutrophils (Bld) [#/Vol] 7.6 10*3/uL 2.0-7.7 [facility] Automated blood erythrocyte countOrdered By: Renard Burgos on 11-25-2024 RBC (Bld) [#/Vol] 4.57 10*6/uL Low 4.6-6.2 [facility] Comment on above: Order Comment: 109-1 Performed By: #### L 100.0100 ####[facility] [address] [place], [address] Automated blood hematocrit ( percentage)Ordered By: Renard Burgos on 11-25-2024 Hematocrit (Bld) [Volume fraction] 42.1 % Normal 40-54 [facility] Comment on above: Order Comment: 109-1 Performed By: #### L 100.0100 ####[facility] [address] [place], [address] Automated lymphocyte count a s percentage of total leukocytesOrdered By: Renard Burgos on 11-25-2024 Lymphocytes/100 WBC Auto (Unsp spec) 17.3 % Low 19-41 [facility] Basophil percentageOrdered B y: Renard Burgos on 11-25-2024 Basophils/100 WBC (Bld) 0.4 % Normal 0-1 [facility] Comment on above: Order Comment: 109-1 Performed By: #### L 100.0100 ####[facility] [address] [place], [address] CBC W/Diff, Automatedon 07-2 Absolute Lymph 1.80 X10 3/uL Normal 0.83-4.51 [facility] Comment on above: Order Comment: 109-1 Performed By: #### L 100.0100 ####[facility] [address] [place], [address] Absolute Neut 7.6 X10 3/uL Normal 2.0-7.7 [facility] Comment on above: Order Comment: 109-1 Performed By: #### L 100.0100 ####[facility] [address] [place], [address] IG% 0.400 Normal 0.0-0.9 [facility] Comment on above: Order Comment: 109-1 Result Comment: IG% - Immature Granulocytes (promyelocytes, myelocytes andmetamyelocytes) > 1% indicates that a LEFT SHIFT is Present. Performed By: #### L 100.0100 ####[facility] [address] [place], [address] Lymphocytes/100 WBC (Bld) 17.3 % Low 19-41 [facility] Comment on above: Order Comment: 109-1 Performed By: #### L 100.0100 ####[facility] [address] [place], [address] Nucleated RBC (Bld) [#/Vol] 0 10*3/uL Normal 0-5 [facility] Comment on above: Order Comment: 109-1 Performed By: #### L 100.0100 ####[facility] [address] [place], [address] RDW SD 43.7 fl Normal 35.1-43.9 [facility] Comment on above: Order Comment: 109-1 Performed By: #### L 100.0100 ####[facility] [address] [place], [address] Eosinophil percentageOrdered By: Renard Burgos on 11-25-2024 Eosinophils/100 WBC (Bld) 0.6 % Normal 0-5 [facility] Comment on above: Order Comment: 109-1 Performed By: #### L 100.0100 ####[facility] [address] [place], [address] Erythrocyte distribution wid th ratioOrdered By: Renard Burgos on 11-25-2024 Erythrocyte distribution width (RBC) [Ratio] 12.9 % Normal 11.6-14.6 [facility] Comment on above: Order Comment: 109-1 Performed By: #### L 100.0100 ####[facility] [address] [place], [address] Erythrocyte distribution wid th standard deviationOrdered By: Renard Burgos on 11-25-2024 Erythrocyte distribution width (RBC) [Ratio] 43.7 fl 35.1-43.9 [facility] Hemoglobin measurementOrdere d By: Renard Burgos on 11-25-2024 Hemoglobin (Bld) [Mass/Vol] 13.8 g/dL Normal 13.0-16.5 [facility] Comment on above: Order Comment: 109-1 Performed By: #### L 100.0100 ####[facility] [address] [place], [address] Immature granulocytes/100 WB C Auto (Bld)Ordered By: Renard Burgos on 11-25-2024 Immature granulocytes/100 WBC (Bld) 0.400 % 0.0-0.9 [facility] Comment on above: IG% - Immature Granu locytes (promyelocytes, myelocytes and metamyelocytes) > 1% indicates that a LEFT SHIFT is Present. MCV (mean corpuscular volume ) determinationOrdered By: Renard Burgos on 11-25-2024 MCV (RBC) [Entitic vol] 92.1 fL Normal 80-94 [facility] Comment on above: Order Comment: 109-1 Performed By: #### L 100.0100 ####[facility] [address] [facility] [place], [place], [phone] Mean corpuscular hemoglobin (MCH) determinationOrdered By: Renard Burgos on 11-25-2024 MCH (RBC) [Entitic mass] 30.2 pg Normal 27.0-32.0 [facility] Comment on above: Order Comment: 109-1 Performed By: #### L 100.0100 ####[facility] [address] [facility] [place], [place], [phone] Mean corpuscular hemoglobin concentration (MCHC) determinationOrdered By: Renard Burgos on 11-25-2024 MCHC (RBC) [Mass/Vol] 32.8 g/dL Normal 32-36 [facility] Comment on above: Order Comment: 109-1 Performed By: #### L 100.0100 ####[facility] [address] [place], [address] Mean platelet volume determi nationOrdered By: Renard Burgos on 11-25-2024 Platelet mean volume (Bld) [Entitic vol] 11.7 fL Normal 6.2-12.0 [facility] Comment on above: Order Comment: 109-1 Performed By: #### L 100.0100 ####[facility] [address] [place], [address] Monocyte percentageOrdered B y: Renard Burgos on 11-25-2024 Monocytes/100 WBC (Bld) 8.6 % Normal 0-10 [facility] Comment on above: Order Comment: 109-1 Performed By: #### L 100.0100 ####[facility] [address] [place], [address] Neutrophil percentageOrdered By: Renard Burgos on 11-25-2024 Neutrophils/100 WBC (Bld) 72.7 % High 47-70 [facility] Comment on above: Order Comment: 109-1 Performed By: #### L 100.0100 ####[facility] [address] [place], [address] Nucleated red blood cell per centageOrdered By: Renard Burgos on 11-25-2024 Nucleated RBC/100 WBC (Bld) [Ratio] 0 % 0-5 [facility] Platelet countOrdered By: Garrick Bhatt on 11-25-2024 Platelets (Bld) [#/Vol] 201 10*3/uL Normal 150-450 [facility] Comment on above: Order Comment: 109-1 Performed By: #### L 100.0100 ####[facility] [address] [place], [address] White blood cell (WBC) count Ordered By: Renard Burgos on 11-25-2024 WBC (Bld) [#/Vol] 10.4 10*3/uL Normal 4.4-11.0 [facility] Comment on above: Order Comment: 109-1 Performed By: #### L 100.0100 ####[facility] [address] [place], [address] Absolute lymphocyte countOrd ered By: Renard Burgos on 11-18-2024 Lymphocytes Auto (Unsp spec) [#/Vol] 2.56 10*3/uL 0.83-4.51 [facility] Absolute neutrophil countOrd ered By: Renard Burgos on 11-18-2024 Neutrophils (Bld) [#/Vol] 6.7 10*3/uL 2.0-7.7 [facility] Automated lymphocyte count a s percentage of total leukocytesOrdered By: Renard Burgos on 11-18-2024 Lymphocytes/100 WBC Auto (Unsp spec) 24.9 % 19-41 [facility] Basophil percentageOrdered B y: Renard Burgos on 11-18-2024 Basophils/100 WBC (Bld) 0.5 % 0-1 [facility] CBC W/Diff, Automatedon 10-30 Absolute Lymph 2.56 X10 3/uL Normal 0.83-4.51 [facility] Comment on above: Order Comment: 109.1 Performed By: #### L 100.0100 ####[facility] [address] [place], [address] Absolute Neut 6.7 X10 3/uL Normal 2.0-7.7 [facility] Comment on above: Order Comment: 109.1 Performed By: #### L 100.0100 ####[facility] [address] [place], [address] Basophils/100 WBC (Bld) 0.5 % Normal 0-1 [facility] Comment on above: Order Comment: 109.1 Performed By: #### L 100.0100 ####[facility] [address] [place], [address] Eosinophils/100 WBC (Bld) 0.8 % Normal 0-5 [facility] Comment on above: Order Comment: 109.1 Performed By: #### L 100.0100 ####[facility] [address] [place], [address] Erythrocyte distribution width (RBC) [Ratio] 13.2 % Normal 11.6-14.6 [facility] Comment on above: Order Comment: 109.1 Performed By: #### L 100.0100 ####[facility] [address] [place], [address] Hematocrit (Bld) [Volume fraction] 41.6 % Normal 40-54 [facility] Comment on above: Order Comment: 109.1 Performed By: #### L 100.0100 ####[facility] [address] [place], [address] Hemoglobin (Bld) [Mass/Vol] 13.6 g/dL Normal 13.0-16.5 [facility] Comment on above: Order Comment: 109.1 Performed By: #### L 100.0100 ####[facility] [address] [place], [address] IG% 0.400 Normal 0.0-0.9 [facility] Comment on above: Order Comment: 109.1 Result Comment: IG% - Immature Granulocytes (promyelocytes, myelocytes andmetamyelocytes) > 1% indicates that a LEFT SHIFT is Present. Performed By: #### L 100.0100 ####[facility] [address] [place], [address] Lymphocytes/100 WBC (Bld) 24.9 % Normal 19-41 [facility] Comment on above: Order Comment: 109.1 Performed By: #### L 100.0100 ####[facility] [address] [place], [address] MCH (RBC) [Entitic mass] 30.3 pg Normal 27.0-32.0 [facility] Comment on above: Order Comment: 109.1 Performed By: #### L 100.0100 ####[facility] [address] [place], [address] MCHC (RBC) [Mass/Vol] 32.7 g/dL Normal 32-36 [facility] Comment on above: Order Comment: 109.1 Performed By: #### L 100.0100 ####[facility] [address] [place], [address] MCV (RBC) [Entitic vol] 92.7 fL Normal 80-94 [facility] Comment on above: Order Comment: 109.1 Performed By: #### L 100.0100 ####[facility] [address] [place] [place], [address] Monocytes/100 WBC (Bld) 8.9 % Normal 0-10 [facility] Comment on above: Order Comment: 109.1 Performed By: #### L 100.0100 ####[facility] [address] [place], [address] Neutrophils/100 WBC (Bld) 64.5 % Normal 47-70 [facility] Comment on above: Order Comment: 109.1 Performed By: #### L 100.0100 ####[facility] [address] [place], [address] Nucleated RBC (Bld) [#/Vol] 0 10*3/uL Normal 0-5 [facility] Comment on above: Order Comment: 109.1 Performed By: #### L 100.0100 ####[facility] [address] [place], [address] Platelet mean volume (Bld) [Entitic vol] 11.0 fL Normal 6.2-12.0 [facility] Comment on above: Order Comment: 109.1 Performed By: #### L 100.0100 ####[facility] [address] [place], [address] Platelets (Bld) [#/Vol] 177 10*3/uL Normal 150-450 [facility] Comment on above: Order Comment: 109.1 Performed By: #### L 100.0100 ####[facility] [address] [place], [address] RBC (Bld) [#/Vol] 4.49 10*6/uL Low 4.6-6.2 [facility] Comment on above: Order Comment: 109.1 Performed By: #### L 100.0100 ####[facility] [address] [place], [address] RDW SD 44.9 fl High 35.1-43.9 [facility] Comment on above: Order Comment: 109.1 Performed By: #### L 100.0100 ####[facility] [address] [place], [address] WBC (Bld) [#/Vol] 10.3 10*3/uL Normal 4.4-11.0 [facility] Comment on above: Order Comment: 109.1 Performed By: #### L 100.0100 ####[facility] [address] [place], [address] Eosinophil percentageOrdered By: Renard Burgos on 11-18-2024 Eosinophils/100 WBC (Bld) 0.8 % 0-5 [facility] Erythrocyte distribution wid th ratioOrdered By: Renard Burgos on 11-18-2024 Erythrocyte distribution width (RBC) [Ratio] 13.2 % 11.6-14.6 [facility] Erythrocyte distribution wid th standard deviationOrdered By: Renard Burgos on 11-18-2024 Erythrocyte distribution width (RBC) [Ratio] 44.9 fl High 35.1-43.9 [facility] Hematocrit Auto (Bld) [Volum e fraction]Ordered By: Renard Burgos on 11-18-2024 Hematocrit (Bld) [Volume fraction] 41.6 % 40-54 [facility] Hemoglobin measurementOrdere d By: Renard Burgos on 11-18-2024 Hemoglobin (Bld) [Mass/Vol] 13.6 g/dL 13.0-16.5 [facility] Immature granulocytes/100 WB C Auto (Bld)Ordered By: Renard Burgos on 11-18-2024 Immature granulocytes/100 WBC (Bld) 0.400 % 0.0-0.9 [facility] Comment on above: IG% - Immature Granu locytes (promyelocytes, myelocytes and metamyelocytes) > 1% indicates that a LEFT SHIFT is Present. MCV (mean corpuscular volume ) determinationOrdered By: Renadr Burgos on 11-18-2024 MCV (RBC) [Entitic vol] 92.7 fL 80-94 [facility] Mean corpuscular hemoglobin (MCH) determinationOrdered By: Renard Burgos on 11-18-2024 MCH (RBC) [Entitic mass] 30.3 pg 27.0-32.0 [facility] Mean corpuscular hemoglobin concentration (MCHC) determinationOrdered By: Renard Burgos on 11-18-2024 MCHC (RBC) [Mass/Vol] 32.7 g/dL 32-36 [facility] Mean platelet volume determi nationOrdered By: Renard Burgos on 11-18-2024 Platelet mean volume (Bld) [Entitic vol] 11.0 fL 6.2-12.0 [facility] Monocyte percentageOrdered B y: Renard Burgos on 11-18-2024 Monocytes/100 WBC (Bld) 8.9 % 0-10 [facility] Neutrophil percentageOrdered By: Renard Burgos on 11-18-2024 Neutrophils/100 WBC (Bld) 64.5 % 47-70 [facility] Nucleated red blood cell per centageOrdered By: Renard Burgos on 11-18-2024 Nucleated RBC/100 WBC (Bld) [Ratio] 0 % 0-5 [facility] Platelet countOrdered By: Garrick Bhatt on 11-18-2024 Platelets (Bld) [#/Vol] 177 10*3/uL 150-450 [facility] RBC Auto (Bld) [#/Vol]Ordere d By: Renard Burgos on 11-18-2024 RBC (Bld) [#/Vol] 4.49 10*6/uL Low 4.6-6.2 [facility] White blood cell (WBC) count Ordered By: Renard Burgos on 11-18-2024 WBC (Bld) [#/Vol] 10.3 10*3/uL 4.4-11.0 [facility] Basic Metabolic Profile (BMP )on 11-12-2024 BUN/CRE 18.8 RATIO Normal 10-20 [facility] Comment on above: Order Comment: ADDED BMP TO 11/11/24 LABS Performed By: #### L 100.0100, L500.2500 ####[facility] [address] [place], [address] Calcium [Mass/Vol] 8.2 mg/dL Normal 7.6-11.0 [facility] Comment on above: Order Comment: ADDED BMP TO 11/11/24 LABS Performed By: #### L 100.0100, L500.2500 ####[facility] [address] [place], [address] Chloride [Moles/Vol] 104 mmol/L Normal 98-108 [facility] Comment on above: Order Comment: ADDED BMP TO 11/11/24 LABS Performed By: #### L 100.0100, L500.2500 ####[facility] [address] [place], [address] CO2 [Moles/Vol] 24.9 mmol/L Normal 21.0-32.0 [facility] Comment on above: Order Comment: ADDED BMP TO 11/11/24 LABS Performed By: #### L 100.0100, L500.2500 ####[facility] [address] [place], [address] Creatinine [Mass/Vol] 0.58 mg/dL Low 0.70-1.20 [facility] Comment on above: Order Comment: ADDED BMP TO 11/11/24 LABS Performed By: #### L 100.0100, L500.2500 ####[facility] [address] [place], [address] GAP 11 Normal 5-15 [facility] Comment on above: Order Comment: ADDED BMP TO 11/11/24 LABS Performed By: #### L 100.0100, L500.2500 ####[facility] [address] [place], [address] GFR/1.73 sq M.predicted among non-blacks MDRD (S/P/Bld) [Vol rate/Area] 107 mL/min/{1.73_m2} Normal >60 [facility] Comment on above: Order Comment: ADDED BMP TO 11/11/24 LABS Result Comment: mL/m in/1.73m2 CKD-EPI Creatinine Equation (2020) Performed By: #### L 100.0100, L500.2500 ####[facility] [address] [place], [address] Glucose [Mass/Vol] 101 mg/dL High 70-99 [facility] Comment on above: Order Comment: ADDED BMP TO 11/11/24 LABS Performed By: #### L 100.0100, L500.2500 ####[facility] [address] [place], [address] Potassium [Moles/Vol] 3.9 mmol/L Normal 3.3-5.1 [facility] Comment on above: Order Comment: ADDED BMP TO 11/11/24 LABS Performed By: #### L 100.0100, L500.2500 ####[facility] [address] [place], [address] Sodium [Moles/Vol] 140 mmol/L Normal 133-145 [facility] Comment on above: Order Comment: ADDED BMP TO 11/11/24 LABS Performed By: #### L 100.0100, L500.2500 ####[facility] [address] [place], [address] Urea nitrogen [Mass/Vol] 11 mg/dL Normal 4-19 [facility] Comment on above: Order Comment: ADDED BMP TO 11/11/24 LABS Performed By: #### L 100.0100, L500.2500 ####[facility] [address] [place], [address] Absolute lymphocyte countOrd ered By: Renard Burgos on 11-11-2024 Lymphocytes Auto (Unsp spec) [#/Vol] 2.08 10*3/uL 0.83-4.51 [facility] Absolute neutrophil countOrd ered By: Renard Burgos on 11-11-2024 Neutrophils (Bld) [#/Vol] 5.2 10*3/uL 2.0-7.7 [facility] Anion gap in Serum or Plasma Ordered By: Renard Burgos on 11-11-2024 Anion gap [Moles/Vol] 11 mmol/L 5- [facility] Automated lymphocyte count a s percentage of total leukocytesOrdered By: Renard Burgos on 11-11-2024 Lymphocytes/100 WBC Auto (Unsp spec) 25.7 % - [facility] BUN/creatinine ratioOrdered By: Renard Burgos on 11-11-2024 Urea nitrogen/Creatinine [Mass ratio] 18.8 mg/mg 10- [facility] Basophil percentageOrdered B y: Renard Burgos on 11-11-2024 Basophils/100 WBC (Bld) 0.6 % 0-1 [facility] CBC W/Diff, Automatedon 10-29 Absolute Lymph 2.08 X10 3/uL Normal 0.83-4.51 [facility] Comment on above: Order Comment: 109.1 Performed By: #### L 100.0100, L500.2500 ####[facility] [address] [place], [address] Absolute Neut 5.2 X10 3/uL Normal 2.0-7.7 [facility] Comment on above: Order Comment: 109.1 Performed By: #### L 100.0100, L500.2500 ####[facility] [address] [place], [address] Basophils/100 WBC (Bld) 0.6 % Normal 0-1 [facility] Comment on above: Order Comment: 109.1 Performed By: #### L 100.0100, L500.2500 ####[facility] [address] [place], [address] Eosinophils/100 WBC (Bld) 1.0 % Normal 0-5 [facility] Comment on above: Order Comment: 109.1 Performed By: #### L 100.0100, L500.2500 ####[facility] [address] [place], [address] Erythrocyte distribution width (RBC) [Ratio] 13.2 % Normal 11.6-14.6 [facility] Comment on above: Order Comment: 109.1 Performed By: #### L 100.0100, L500.2500 ####[facility] [address] [place], [address] Hematocrit (Bld) [Volume fraction] 38.6 % Low 40-54 [facility] Comment on above: Order Comment: 109.1 Performed By: #### L 100.0100, L500.2500 ####[facility] [address] [place], [address] Hemoglobin (Bld) [Mass/Vol] 12.6 g/dL Low 13.0-16.5 [facility] Comment on above: Order Comment: 109.1 Performed By: #### L 100.0100, L500.2500 ####[facility] [address] [place], [address] IG% 0.400 Normal 0.0-0.9 [facility] Comment on above: Order Comment: 109.1 Result Comment: IG% - Immature Granulocytes (promyelocytes, myelocytes andmetamyelocytes) > 1% indicates that a LEFT SHIFT is Present. Performed By: #### L 100.0100, L500.2500 ####[facility] [address] [place], [address] Lymphocytes/100 WBC (Bld) 25.7 % Normal 19-41 [facility] Comment on above: Order Comment: 109.1 Performed By: #### L 100.0100, L500.2500 ####[facility] [address] [place], [address] MCH (RBC) [Entitic mass] 29.9 pg Normal 27.0-32.0 [facility] Comment on above: Order Comment: 109.1 Performed By: #### L 100.0100, L500.2500 ####[facility] [address] [place], [address] MCHC (RBC) [Mass/Vol] 32.6 g/dL Normal 32-36 [facility] Comment on above: Order Comment: 109.1 Performed By: #### L 100.0100, L500.2500 ####[facility] [address] [place], [address] MCV (RBC) [Entitic vol] 91.7 fL Normal 80-94 [facility] Comment on above: Order Comment: 109.1 Performed By: #### L 100.0100, L500.2500 ####[facility] [address] [place], [address] Monocytes/100 WBC (Bld) 8.3 % Normal 0-10 [facility] Comment on above: Order Comment: 109.1 Performed By: #### L 100.0100, L500.2500 ####[facility] [address] [place], [address] Neutrophils/100 WBC (Bld) 64.0 % Normal 47-70 [facility] Comment on above: Order Comment: 109.1 Performed By: #### L 100.0100, L500.2500 ####[facility] [address], [address] Nucleated RBC (Bld) [#/Vol] 0 10*3/uL Normal 0-5 [facility] Comment on above: Order Comment: 109.1 Performed By: #### L 100.0100, L500.2500 ####[facility] [address] [place], [address] Platelet mean volume (Bld) [Entitic vol] 11.4 fL Normal 6.2-12.0 [facility] Comment on above: Order Comment: 109.1 Performed By: #### L 100.0100, L500.2500 ####[facility] [address] [place], [address] Platelets (Bld) [#/Vol] 220 10*3/uL Normal 150-450 [facility] Comment on above: Order Comment: 109.1 Performed By: #### L 100.0100, L500.2500 ####[facility] [address] [place], [address] RBC (Bld) [#/Vol] 4.21 10*6/uL Low 4.6-6.2 [facility] Comment on above: Order Comment: 109.1 Performed By: #### L 100.0100, L500.2500 ####[facility] [address] [place], [address] RDW SD 44.4 fl High 35.1-43.9 [facility] Comment on above: Order Comment: 109.1 Performed By: #### L 100.0100, L500.2500 ####[facility] [address] [place], [address] WBC (Bld) [#/Vol] 8.1 10*3/uL Normal 4.4-11.0 [facility] Comment on above: Order Comment: 109.1 Performed By: #### L 100.0100, L500.2500 ####[facility] [address] [place], [address] Carbon dioxide, total [Moles /volume] in Central venous bloodOrdered By: Renard Burgos on 11-11-2024 CO2 [Moles/Vol] 24.9 mmol/L 21.0-32.0 [facility] Chloride assayOrdered By: Garrick Bhatt on 11-11-2024 Chloride [Moles/Vol] 104 mmol/L 98-108 [facility] Eosinophil percentageOrdered By: Renadr Burgos on 11-11-2024 Eosinophils/100 WBC (Bld) 1.0 % 0-5 [facility] Erythrocyte distribution wid th ratioOrdered By: Renard Burgos on 11-11-2024 Erythrocyte distribution width (RBC) [Ratio] 13.2 % 11.6-14.6 [facility] Erythrocyte distribution wid th standard deviationOrdered By: Renard Burgos on 11-11-2024 Erythrocyte distribution width (RBC) [Ratio] 44.4 fl High 35.1-43.9 [facility] Glomerular filtration rate ( GFR) estimation/1.73 sq m using serum, plasma, or whole bOrdered By: Renard Burgos on 11-11-2024 GFR/1.73 sq M.predicted among non-blacks MDRD (S/P/Bld) [Vol rate/Area] 107 mL/min/{1.73_m2} >60 [facility] Comment on above: mL/min/1.73m2 CKD-EP I Creatinine Equation (2020) Hematocrit Auto (Bld) [Volum e fraction]Ordered By: Renard Burgos on 11-11-2024 Hematocrit (Bld) [Volume fraction] 38.6 % Low 40-54 [facility] Hemoglobin measurementOrdere d By: Renard Burgos on 11-11-2024 Hemoglobin (Bld) [Mass/Vol] 12.6 g/dL Low 13.0-16.5 [facility] Immature granulocytes/100 WB C Auto (Bld)Ordered By: Renard Burgos on 11-11-2024 Immature granulocytes/100 WBC (Bld) 0.400 % 0.0-0.9 [facility] Comment on above: IG% - Immature Granu locytes (promyelocytes, myelocytes and metamyelocytes) > 1% indicates that a LEFT SHIFT is Present. MCV (mean corpuscular volume ) determinationOrdered By: Renard Burgos on 11-11-2024 MCV (RBC) [Entitic vol] 91.7 fL 80-94 [facility] Mean corpuscular hemoglobin (MCH) determinationOrdered By: Renard Burgos on 11-11-2024 MCH (RBC) [Entitic mass] 29.9 pg 27.0-32.0 [facility] Mean corpuscular hemoglobin concentration (MCHC) determinationOrdered By: Renard Burgos on 11-11-2024 MCHC (RBC) [Mass/Vol] 32.6 g/dL 32-36 [facility] Mean platelet volume determi nationOrdered By: Renard Burgos on 11-11-2024 Platelet mean volume (Bld) [Entitic vol] 11.4 fL 6.2-12.0 [facility] Monocyte percentageOrdered B y: Renard Burgos on 11-11-2024 Monocytes/100 WBC (Bld) 8.3 % 0-10 [facility] Neutrophil percentageOrdered By: Renard Burgos on 11-11-2024 Neutrophils/100 WBC (Bld) 64.0 % 47-70 [facility] Nucleated red blood cell per centageOrdered By: Renard Burgos on 11-11-2024 Nucleated RBC/100 WBC (Bld) [Ratio] 0 % 0-5 [facility] Platelet countOrdered By: Garrick Bhatt on 11-11-2024 Platelets (Bld) [#/Vol] 220 10*3/uL 150-450 [facility] Potassium measurement (mass/ volume)Ordered By: Renard Burgos on 11-11-2024 Potassium (Unsp spec) [Mass/Vol] 3.9 mmol/L 3.3-5.1 [facility] RBC Auto (Bld) [#/Vol]Ordere d By: Renard Burgos on 11-11-2024 RBC (Bld) [#/Vol] 4.21 10*6/uL Low 4.6-6.2 [facility] Serum creatinine measurement (mass/volume)Ordered By: Renard Burgos on 11-11-2024 Creatinine [Mass/Vol] 0.58 mg/dL Low 0.70-1.20 [facility] Serum glucose measurement (m ass/volume)Ordered By: Renard Burgos on 11-11-2024 Glucose [Mass/Vol] 101 mg/dL High 70-99 [facility] Serum or plasma calcium gordy urement (mass/volume)Ordered By: Renard Burgos on 11-11-2024 Calcium [Mass/Vol] 8.2 mg/dL 7.6-11.0 [facility] Serum or plasma urea nitroge n measurement (mass/volume)Ordered By: Renard Burgos on 11-11-2024 Urea nitrogen [Mass/Vol] 11 mg/dL 4-19 [facility] Sodium levelOrdered By: Lamine Burgos on 11-11-2024 Sodium [Moles/Vol] 140 mmol/L 133-145 [facility] White blood cell (WBC) count Ordered By: Renard Burgos on 11-11-2024 WBC (Bld) [#/Vol] 8.1 10*3/uL 4.4-11.0 [facility] Absolute lymphocyte countOrd ered By: Renard Burgos on 11-04-2024 Lymphocytes Auto (Unsp spec) [#/Vol] 2.18 10*3/uL 0.83-4.51 [facility] Absolute neutrophil countOrd ered By: Renard Burgos on 11-04-2024 Neutrophils (Bld) [#/Vol] 4.8 10*3/uL 2.0-7.7 [facility] Automated lymphocyte count a s percentage of total leukocytesOrdered By: Renard Burgos on 11-04-2024 Lymphocytes/100 WBC Auto (Unsp spec) 28.1 % 19-41 [facility] Basophil percentageOrdered B y: Renard Burgos on 11-04-2024 Basophils/100 WBC (Bld) 0.6 % 0-1 [facility] CBC W/Diff, Automatedon 070 PLT EST A Normal ADEQ [facility] Comment on above: Order Comment: 109 Performed By: #### L 100.0100 ####[facility] [address] [place], [address] PLT MORPH CLUMPED Normal [facility] Comment on above: Order Comment: 109 Performed By: #### L 100.0100 ####[facility] [address] [place], [address] Eosinophil percentageOrdered By: Renard Burgos on 11-04-2024 Eosinophils/100 WBC (Bld) 0.8 % 0-5 [facility] Erythrocyte distribution wid th ratioOrdered By: Renard Burgos on 11-04-2024 Erythrocyte distribution width (RBC) [Ratio] 13.3 % 11.6-14.6 [facility] Erythrocyte distribution wid th standard deviationOrdered By: Renard Burgos on 11-04-2024 Erythrocyte distribution width (RBC) [Ratio] 45.0 fl High 35.1-43.9 [facility] Hematocrit Auto (Bld) [Volum e fraction]Ordered By: Renard Burgos on 11-04-2024 Hematocrit (Bld) [Volume fraction] 42.8 % 40-54 [facility] Hemoglobin measurementOrdere d By: Renard Burgos on 11-04-2024 Hemoglobin (Bld) [Mass/Vol] 14.0 g/dL 13.0-16.5 [facility] Immature granulocytes/100 WB C Auto (Bld)Ordered By: Renard Burgos on 11-04-2024 Immature granulocytes/100 WBC (Bld) 0.400 % 0.0-0.9 [facility] Comment on above: IG% - Immature Granu locytes (promyelocytes, myelocytes and metamyelocytes) > 1% indicates that a LEFT SHIFT is Present. MCV (mean corpuscular volume ) determinationOrdered By: Renard Burgos on 11-04-2024 MCV (RBC) [Entitic vol] 92.4 fL 80-94 [facility] Mean corpuscular hemoglobin (MCH) determinationOrdered By: Renard Burgos on 11-04-2024 MCH (RBC) [Entitic mass] 30.2 pg 27.0-32.0 [facility] Mean corpuscular hemoglobin concentration (MCHC) determinationOrdered By: Renard Burgos on 11-04-2024 MCHC (RBC) [Mass/Vol] 32.7 g/dL 32-36 [facility] Mean platelet volume determi nationOrdered By: Renard Burgos on 11-04-2024 Platelet mean volume (Bld) [Entitic vol] 11.6 fL 6.2-12.0 [facility] Monocyte percentageOrdered B y: Renard Burgos on 11-04-2024 Monocytes/100 WBC (Bld) 8.4 % 0-10 [facility] Neutrophil percentageOrdered By: Renard Burgos on 11-04-2024 Neutrophils/100 WBC (Bld) 61.7 % 47-70 [facility] Nucleated red blood cell per centageOrdered By: Renard Burgos on 11-04-2024 Nucleated RBC/100 WBC (Bld) [Ratio] 0 % 0-5 [facility] Platelet countOrdered By: Garrick Bhatt on 11-04-2024 Platelet count TNP [facility] Comment on above: Test not performed Platelet estimateOrdered By: Renard Burgos on 11-04-2024 Platelets LM Ql (Bld) A ADEQ [facility] Platelet morphologyOrdered B y: Renard Burgos on 11-04-2024 Platelet morphology finding Nom (Bld) CLUMPED [facility] RBC Auto (Bld) [#/Vol]Ordere d By: Renard Burgos on 11-04-2024 RBC (Bld) [#/Vol] 4.63 10*6/uL 4.6-6.2 [facility] White blood cell (WBC) count Ordered By: Renard Burgos on 11-04-2024 WBC (Bld) [#/Vol] 7.8 10*3/uL 4.4-11.0 [facility] Absolute lymphocyte countOrd ered By: Renard Burgos on 10-28-2024 Lymphocytes Auto (Unsp spec) [#/Vol] 1.72 10*3/uL 0.83-4.51 [facility] Absolute neutrophil countOrd ered By: Renard Burgos on 10-28-2024 Neutrophils (Bld) [#/Vol] 5.0 10*3/uL 2.0-7.7 [facility] Automated lymphocyte count a s percentage of total leukocytesOrdered By: Renard Burgos on 10-28-2024 Lymphocytes/100 WBC Auto (Unsp spec) 22.9 % 19-41 [facility] Basophil percentageOrdered B y: Renard Burgos on 10-28-2024 Basophils/100 WBC (Bld) 0.7 % 0-1 [facility] CBC W/Diff, Automatedon 10-01-2024 Absolute Lymph 1.72 X10 3/uL Normal 0.83-4.51 [facility] Comment on above: Order Comment: 109-1 Performed By: #### L 100.0100 ####[facility] [address] [place], [address] Absolute Neut 5.0 X10 3/uL Normal 2.0-7.7 [facility] Comment on above: Order Comment: 109-1 Performed By: #### L 100.0100 ####[facility] [address] [place], [address] Basophils/100 WBC (Bld) 0.7 % Normal 0-1 [facility] Comment on above: Order Comment: 109-1 Performed By: #### L 100.0100 ####[facility] [address] [place], [address] Eosinophils/100 WBC (Bld) 1.2 % Normal 0-5 [facility] Comment on above: Order Comment: 109-1 Performed By: #### L 100.0100 ####[facility] [address] [place], [address] Erythrocyte distribution width (RBC) [Ratio] 13.2 % Normal 11.6-14.6 [facility] Comment on above: Order Comment: 109-1 Performed By: #### L 100.0100 ####[facility] [address] [place], [address] Hematocrit (Bld) [Volume fraction] 37.3 % Low 40-54 [facility] Comment on above: Order Comment: 109-1 Performed By: #### L 100.0100 ####[facility] [address] [place], [address] Hemoglobin (Bld) [Mass/Vol] 12.3 g/dL Low 13.0-16.5 [facility] Comment on above: Order Comment: 109-1 Performed By: #### L 100.0100 ####[facility] [address] [place], [address] IG% 0.100 Normal 0.0-0.9 [facility] Comment on above: Order Comment: 109-1 Result Comment: IG% - Immature Granulocytes (promyelocytes, myelocytes andmetamyelocytes) > 1% indicates that a LEFT SHIFT is Present. Performed By: #### L 100.0100 ####[facility] [address] [place], [address] Lymphocytes/100 WBC (Bld) 22.9 % Normal 19-41 [facility] Comment on above: Order Comment: 109-1 Performed By: #### L 100.0100 ####[facility] [address] [place], [address] MCH (RBC) [Entitic mass] 30.1 pg Normal 27.0-32.0 [facility] Comment on above: Order Comment: 109-1 Performed By: #### L 100.0100 ####[facility] [address] [place], [address] MCHC (RBC) [Mass/Vol] 33.0 g/dL Normal 32-36 [facility] Comment on above: Order Comment: 109-1 Performed By: #### L 100.0100 ####[facility] [address] [place], [address] MCV (RBC) [Entitic vol] 91.4 fL Normal 80-94 [facility] Comment on above: Order Comment: 109-1 Performed By: #### L 100.0100 ####[facility] [address] [place], [address] Monocytes/100 WBC (Bld) 8.1 % Normal 0-10 [facility] Comment on above: Order Comment: 109-1 Performed By: #### L 100.0100 ####[facility] [address] [place], [address] Neutrophils/100 WBC (Bld) 67.0 % Normal 47-70 [facility] Comment on above: Order Comment: 109-1 Performed By: #### L 100.0100 ####[facility] [address] [place], [address] Nucleated RBC (Bld) [#/Vol] 0 10*3/uL Normal 0-5 [facility] Comment on above: Order Comment: 109-1 Performed By: #### L 100.0100 ####[facility] [address] [place], [address] Platelet mean volume (Bld) [Entitic vol] 11.3 fL Normal 6.2-12.0 [facility] Comment on above: Order Comment: 109-1 Performed By: #### L 100.0100 ####[facility] [address] [place], [address] Platelets (Bld) [#/Vol] 201 10*3/uL Normal 150-450 [facility] Comment on above: Order Comment: 109-1 Performed By: #### L 100.0100 ####[facility] [address] [place], [address] RBC (Bld) [#/Vol] 4.08 10*6/uL Low 4.6-6.2 [facility] Comment on above: Order Comment: 109-1 Performed By: #### L 100.0100 ####[facility] [address] [place], [address] RDW SD 44.0 fl High 35.1-43.9 [facility] Comment on above: Order Comment: 109-1 Performed By: #### L 100.0100 ####[facility] [address] [place], [address] WBC (Bld) [#/Vol] 7.5 10*3/uL Normal 4.4-11.0 [facility] Comment on above: Order Comment: 109-1 Performed By: #### L 100.0100 ####[facility] [address] [place], [address] Eosinophil percentageOrdered By: Renard Burgos on 10-28-2024 Eosinophils/100 WBC (Bld) 1.2 % 0-5 [facility] Erythrocyte distribution wid th ratioOrdered By: Renard Burgos on 10-28-2024 Erythrocyte distribution width (RBC) [Ratio] 13.2 % 11.6-14.6 [facility] Erythrocyte distribution wid th standard deviationOrdered By: Renard Burgos on 10-28-2024 Erythrocyte distribution width (RBC) [Ratio] 44.0 fl High 35.1-43.9 [facility] Hematocrit Auto (Bld) [Volum e fraction]Ordered By: Renard Burgos on 10-28-2024 Hematocrit (Bld) [Volume fraction] 37.3 % Low 40-54 [facility] Hemoglobin measurementOrdere d By: Renard Burgos on 10-28-2024 Hemoglobin (Bld) [Mass/Vol] 12.3 g/dL Low 13.0-16.5 [facility] Immature granulocytes/100 WB C Auto (Bld)Ordered By: Renard Burgos on 10-28-2024 Immature granulocytes/100 WBC (Bld) 0.100 % 0.0-0.9 [facility] Comment on above: IG% - Immature Granu locytes (promyelocytes, myelocytes and metamyelocytes) > 1% indicates that a LEFT SHIFT is Present. MCV (mean corpuscular volume ) determinationOrdered By: Renard Burgos on 10-28-2024 MCV (RBC) [Entitic vol] 91.4 fL 80-94 [facility] Mean corpuscular hemoglobin (MCH) determinationOrdered By: Renard Burgos on 10-28-2024 MCH (RBC) [Entitic mass] 30.1 pg 27.0-32.0 [facility] Mean corpuscular hemoglobin concentration (MCHC) determinationOrdered By: Renard Burgos on 10-28-2024 MCHC (RBC) [Mass/Vol] 33.0 g/dL 32-36 [facility] Mean platelet volume determi nationOrdered By: Renard Burgos on 10-28-2024 Platelet mean volume (Bld) [Entitic vol] 11.3 fL 6.2-12.0 [facility] Monocyte percentageOrdered B y: Renard Burgos on 10-28-2024 Monocytes/100 WBC (Bld) 8.1 % 0-10 [facility] Neutrophil percentageOrdered By: Renard Burgos on 10-28-2024 Neutrophils/100 WBC (Bld) 67.0 % 47-70 [facility] Nucleated red blood cell per centageOrdered By: Renard Burgos on 10-28-2024 Nucleated RBC/100 WBC (Bld) [Ratio] 0 % 0-5 [facility] Platelet countOrdered By: Garrick Bhatt on 10-28-2024 Platelets (Bld) [#/Vol] 201 10*3/uL 150-450 [facility] RBC Auto (Bld) [#/Vol]Ordere d By: Renard Burgos on 10-28-2024 RBC (Bld) [#/Vol] 4.08 10*6/uL Low 4.6-6.2 [facility] White blood cell (WBC) count Ordered By: Renard Burgos on 10-28-2024 WBC (Bld) [#/Vol] 7.5 10*3/uL 4.4-11.0 [facility] Absolute lymphocyte countOrd ered By: Renard Burgos on 10-21-2024 Lymphocytes Auto (Unsp spec) [#/Vol] 2.41 10*3/uL 0.83-4.51 [facility] Absolute neutrophil countOrd ered By: Renard Burgos on 10-21-2024 Neutrophils (Bld) [#/Vol] 5.2 10*3/uL 2.0-7.7 [facility] Automated lymphocyte count a s percentage of total leukocytesOrdered By: Renard Burgos on 10-21-2024 Lymphocytes/100 WBC Auto (Unsp spec) 28.2 % 19-41 [facility] Basophil percentageOrdered B y: Renard Burgos on 10-21-2024 Basophils/100 WBC (Bld) 0.6 % 0-1 [facility] CBC W/Diff, Automatedon 09-30-2024 Absolute Lymph 2.41 X10 3/uL Normal 0.83-4.51 [facility] Comment on above: Order Comment: 109 Performed By: #### L 100.0100 ####[facility] [address] [place], [address] Absolute Neut 5.2 X10 3/uL Normal 2.0-7.7 [facility] Comment on above: Order Comment: 109 Performed By: #### L 100.0100 ####[facility] [address] [place], [address] Basophils/100 WBC (Bld) 0.6 % Normal 0-1 [facility] Comment on above: Order Comment: 109 Performed By: #### L 100.0100 ####[facility] [address] [place], [address] Eosinophils/100 WBC (Bld) 0.8 % Normal 0-5 [facility] Comment on above: Order Comment: 109 Performed By: #### L 100.0100 ####[facility] [address] [place], [address] Erythrocyte distribution width (RBC) [Ratio] 13.3 % Normal 11.6-14.6 [facility] Comment on above: Order Comment: 109 Performed By: #### L 100.0100 ####[facility] [address] [place], [address] Hematocrit (Bld) [Volume fraction] 38.9 % Low 40-54 [facility] Comment on above: Order Comment: 109 Performed By: #### L 100.0100 ####[facility] [address] [place], [address] Hemoglobin (Bld) [Mass/Vol] 12.8 g/dL Low 13.0-16.5 [facility] Comment on above: Order Comment: 109 Performed By: #### L 100.0100 ####[facility] [address] [place], [address] IG% 0.400 Normal 0.0-0.9 [facility] Comment on above: Order Comment: 109 Result Comment: IG% - Immature Granulocytes (promyelocytes, myelocytes andmetamyelocytes) > 1% indicates that a LEFT SHIFT is Present. Performed By: #### L 100.0100 ####[facility] [address] [place], [address] Lymphocytes/100 WBC (Bld) 28.2 % Normal 19-41 [facility] Comment on above: Order Comment: 109 Performed By: #### L 100.0100 ####[facility] [address] [place], [address] MCH (RBC) [Entitic mass] 30.1 pg Normal 27.0-32.0 [facility] Comment on above: Order Comment: 109 Performed By: #### L 100.0100 ####[facility] [address] [place], [address] MCHC (RBC) [Mass/Vol] 32.9 g/dL Normal 32-36 [facility] Comment on above: Order Comment: 109 Performed By: #### L 100.0100 ####[facility] [address] [place], [address] MCV (RBC) [Entitic vol] 91.5 fL Normal 80-94 [facility] Comment on above: Order Comment: 109 Performed By: #### L 100.0100 ####[facility] [address] [place], [address] Monocytes/100 WBC (Bld) 9.1 % Normal 0-10 [facility] Comment on above: Order Comment: 109 Performed By: #### L 100.0100 ####[facility] [address] [place], [address] Neutrophils/100 WBC (Bld) 60.9 % Normal 47-70 [facility] Comment on above: Order Comment: 109 Performed By: #### L 100.0100 ####[facility] [address] [place], [address] Nucleated RBC (Bld) [#/Vol] 0 10*3/uL Normal 0-5 [facility] Comment on above: Order Comment: 109 Performed By: #### L 100.0100 ####[facility] [address] [place], [address] Platelet mean volume (Bld) [Entitic vol] 11.2 fL Normal 6.2-12.0 [facility] Comment on above: Order Comment: 109 Performed By: #### L 100.0100 ####[facility] [address] [place], [address] Platelets (Bld) [#/Vol] 204 10*3/uL Normal 150-450 [facility] Comment on above: Order Comment: 109 Performed By: #### L 100.0100 ####[facility] [address] [place], [address] RBC (Bld) [#/Vol] 4.25 10*6/uL Low 4.6-6.2 [facility] Comment on above: Order Comment: 109 Performed By: #### L 100.0100 ####[facility] [address] [place], [address] RDW SD 44.5 fl High 35.1-43.9 [facility] Comment on above: Order Comment: 109 Performed By: #### L 100.0100 ####[facility] [address] [place], [address] WBC (Bld) [#/Vol] 8.5 10*3/uL Normal 4.4-11.0 [facility] Comment on above: Order Comment: 109 Performed By: #### L 100.0100 ####[facility] [address] [place], [address] Eosinophil percentageOrdered By: Renard Burgos on 10-21-2024 Eosinophils/100 WBC (Bld) 0.8 % 0-5 [facility] Erythrocyte distribution wid th ratioOrdered By: Renard Burgos on 10-21-2024 Erythrocyte distribution width (RBC) [Ratio] 13.3 % 11.6-14.6 [facility] Erythrocyte distribution wid th standard deviationOrdered By: Renard Burgos on 10-21-2024 Erythrocyte distribution width (RBC) [Ratio] 44.5 fl High 35.1-43.9 [facility] Hematocrit Auto (Bld) [Volum e fraction]Ordered By: Renard Burgos on 10-21-2024 Hematocrit (Bld) [Volume fraction] 38.9 % Low 40-54 [facility] Hemoglobin measurementOrdere d By: Renard Burgos on 10-21-2024 Hemoglobin (Bld) [Mass/Vol] 12.8 g/dL Low 13.0-16.5 [facility] Immature granulocytes/100 WB C Auto (Bld)Ordered By: Renard Burgos on 10-21-2024 Immature granulocytes/100 WBC (Bld) 0.400 % 0.0-0.9 [facility] Comment on above: IG% - Immature Granu locytes (promyelocytes, myelocytes and metamyelocytes) > 1% indicates that a LEFT SHIFT is Present. MCV (mean corpuscular volume ) determinationOrdered By: Renard Burgos on 10-21-2024 MCV (RBC) [Entitic vol] 91.5 fL 80-94 [facility] Mean corpuscular hemoglobin (MCH) determinationOrdered By: Renard Burgos on 10-21-2024 MCH (RBC) [Entitic mass] 30.1 pg 27.0-32.0 [facility] Mean corpuscular hemoglobin concentration (MCHC) determinationOrdered By: Renard Burgos on 10-21-2024 MCHC (RBC) [Mass/Vol] 32.9 g/dL 32-36 [facility] Mean platelet volume determi nationOrdered By: Renard Burgos on 10-21-2024 Platelet mean volume (Bld) [Entitic vol] 11.2 fL 6.2-12.0 [facility] Monocyte percentageOrdered B y: Renard Burgos on 10-21-2024 Monocytes/100 WBC (Bld) 9.1 % 0-10 [facility] Neutrophil percentageOrdered By: Renard Burgos on 10-21-2024 Neutrophils/100 WBC (Bld) 60.9 % 47-70 [facility] Nucleated red blood cell per centageOrdered By: Renard Burgos on 10-21-2024 Nucleated RBC/100 WBC (Bld) [Ratio] 0 % 0-5 [facility] Platelet countOrdered By: Garrick Bhatt on 10-21-2024 Platelets (Bld) [#/Vol] 204 10*3/uL 150-450 [facility] RBC Auto (Bld) [#/Vol]Ordere d By: Renard Burgos on 10-21-2024 RBC (Bld) [#/Vol] 4.25 10*6/uL Low 4.6-6.2 [facility] White blood cell (WBC) count Ordered By: Renard Burgos on 10-21-2024 WBC (Bld) [#/Vol] 8.5 10*3/uL 4.4-11.0 [facility] Absolute lymphocyte countOrd ered By: Renard Burgos on 10-14-2024 Lymphocytes Auto (Unsp spec) [#/Vol] 1.77 10*3/uL 0.83-4.51 [facility] Absolute neutrophil countOrd ered By: Renard Burgos on 10-14-2024 Neutrophils (Bld) [#/Vol] 4.8 10*3/uL 2.0-7.7 [facility] Automated lymphocyte count a s percentage of total leukocytesOrdered By: Renard Burgos on 10-14-2024 Lymphocytes/100 WBC Auto (Unsp spec) 24.2 % 19-41 [facility] Basophil percentageOrdered B y: Renard Burgos on 10-14-2024 Basophils/100 WBC (Bld) 0.7 % 0-1 [facility] CBC W/Diff, Automatedon 09-29 Absolute Lymph 1.77 X10 3/uL Normal 0.83-4.51 [facility] Comment on above: Order Comment: 109 Performed By: #### L 100.0100 ####[facility] [address] [place], [address] Absolute Neut 4.8 X10 3/uL Normal 2.0-7.7 [facility] Comment on above: Order Comment: 109 Performed By: #### L 100.0100 ####[facility] [address] [place], [address] Basophils/100 WBC (Bld) 0.7 % Normal 0-1 [facility] Comment on above: Order Comment: 109 Performed By: #### L 100.0100 ####[facility] [address] [place], [address] Eosinophils/100 WBC (Bld) 0.8 % Normal 0-5 [facility] Comment on above: Order Comment: 109 Performed By: #### L 100.0100 ####[facility] [address] [place], [address] Erythrocyte distribution width (RBC) [Ratio] 13.2 % Normal 11.6-14.6 [facility] Comment on above: Order Comment: 109 Performed By: #### L 100.0100 ####[facility] [address] [place], [address] Hematocrit (Bld) [Volume fraction] 42.7 % Normal 40-54 [facility] Comment on above: Order Comment: 109 Performed By: #### L 100.0100 ####[facility] [address] [place], [address] Hemoglobin (Bld) [Mass/Vol] 13.9 g/dL Normal 13.0-16.5 [facility] Comment on above: Order Comment: 109 Performed By: #### L 100.0100 ####[facility] [address] [place], [address] IG% 0.300 Normal 0.0-0.9 [facility] Comment on above: Order Comment: 109 Result Comment: IG% - Immature Granulocytes (promyelocytes, myelocytes andmetamyelocytes) > 1% indicates that a LEFT SHIFT is Present. Performed By: #### L 100.0100 ####[facility] [address] [place], [address] Lymphocytes/100 WBC (Bld) 24.2 % Normal 19-41 [facility] Comment on above: Order Comment: 109 Performed By: #### L 100.0100 ####[facility] [address] [place], [address] MCH (RBC) [Entitic mass] 29.7 pg Normal 27.0-32.0 [facility] Comment on above: Order Comment: 109 Performed By: #### L 100.0100 ####[facility] [address] [place], [address] MCHC (RBC) [Mass/Vol] 32.6 g/dL Normal 32-36 [facility] Comment on above: Order Comment: 109 Performed By: #### L 100.0100 ####[facility] [address] [place], [address] MCV (RBC) [Entitic vol] 91.2 fL Normal 80-94 [facility] Comment on above: Order Comment: 109 Performed By: #### L 100.0100 ####[facility] [address] [place], [address] Monocytes/100 WBC (Bld) 8.6 % Normal 0-10 [facility] Comment on above: Order Comment: 109 Performed By: #### L 100.0100 ####[facility] [address] [place], [address] Neutrophils/100 WBC (Bld) 65.4 % Normal 47-70 [facility] Comment on above: Order Comment: 109 Performed By: #### L 100.0100 ####[facility] [address] [place], [address] Nucleated RBC (Bld) [#/Vol] 0 10*3/uL Normal 0-5 [facility] Comment on above: Order Comment: 109 Performed By: #### L 100.0100 ####[facility] [address] [place], [address] Platelet mean volume (Bld) [Entitic vol] 11.1 fL Normal 6.2-12.0 [facility] Comment on above: Order Comment: 109 Performed By: #### L 100.0100 ####[facility] [address] [place], [address] Platelets (Bld) [#/Vol] 232 10*3/uL Normal 150-450 [facility] Comment on above: Order Comment: 109 Performed By: #### L 100.0100 ####[facility] [address] [place], [address] RBC (Bld) [#/Vol] 4.68 10*6/uL Normal 4.6-6.2 [facility] Comment on above: Order Comment: 109 Performed By: #### L 100.0100 ####[facility] [address] [place], [address] RDW SD 44.1 fl High 35.1-43.9 [facility] Comment on above: Order Comment: 109 Performed By: #### L 100.0100 ####[facility] [address] [place], [address] WBC (Bld) [#/Vol] 7.3 10*3/uL Normal 4.4-11.0 [facility] Comment on above: Order Comment: 109 Performed By: #### L 100.0100 ####[facility] [address] [place], [address] Eosinophil percentageOrdered By: Renard Burgos on 10-14-2024 Eosinophils/100 WBC (Bld) 0.8 % 0-5 [facility] Erythrocyte distribution wid th ratioOrdered By: Renard Burgso on 10-14-2024 Erythrocyte distribution width (RBC) [Ratio] 13.2 % 11.6-14.6 [facility] Erythrocyte distribution wid th standard deviationOrdered By: Renard Burgos on 10-14-2024 Erythrocyte distribution width (RBC) [Ratio] 44.1 fl High 35.1-43.9 [facility] Hematocrit Auto (Bld) [Volum e fraction]Ordered By: Renard Burgos on 10-14-2024 Hematocrit (Bld) [Volume fraction] 42.7 % 40-54 [facility] Hemoglobin measurementOrdere d By: Renard Burgos on 10-14-2024 Hemoglobin (Bld) [Mass/Vol] 13.9 g/dL 13.0-16.5 [facility] Immature granulocytes/100 WB C Auto (Bld)Ordered By: Renard Burgos on 10-14-2024 Immature granulocytes/100 WBC (Bld) 0.300 % 0.0-0.9 [facility] Comment on above: IG% - Immature Granu locytes (promyelocytes, myelocytes and metamyelocytes) > 1% indicates that a LEFT SHIFT is Present. MCV (mean corpuscular volume ) determinationOrdered By: Renard Burgos on 10-14-2024 MCV (RBC) [Entitic vol] 91.2 fL 80-94 [facility] Mean corpuscular hemoglobin (MCH) determinationOrdered By: Renard Burgos on 10-14-2024 MCH (RBC) [Entitic mass] 29.7 pg 27.0-32.0 [facility] Mean corpuscular hemoglobin concentration (MCHC) determinationOrdered By: Renard Burgos on 10-14-2024 MCHC (RBC) [Mass/Vol] 32.6 g/dL 32-36 [facility] Mean platelet volume determi nationOrdered By: Renard Burgos on 10-14-2024 Platelet mean volume (Bld) [Entitic vol] 11.1 fL 6.2-12.0 [facility] Monocyte percentageOrdered B y: Renard Burgos on 10-14-2024 Monocytes/100 WBC (Bld) 8.6 % 0-10 [facility] Neutrophil percentageOrdered By: Renard Burgos on 10-14-2024 Neutrophils/100 WBC (Bld) 65.4 % 47-70 [facility] Nucleated red blood cell per centageOrdered By: Renard Burgos on 10-14-2024 Nucleated RBC/100 WBC (Bld) [Ratio] 0 % 0-5 [facility] Platelet countOrdered By: Garrick Bhatt on 10-14-2024 Platelets (Bld) [#/Vol] 232 10*3/uL 150-450 [facility] RBC Auto (Bld) [#/Vol]Ordere d By: Renard Burgos on 10-14-2024 RBC (Bld) [#/Vol] 4.68 10*6/uL 4.6-6.2 [facility] White blood cell (WBC) count Ordered By: Renard Burgos on 10-14-2024 WBC (Bld) [#/Vol] 7.3 10*3/uL 4.4-11.0 [facility] Absolute lymphocyte countOrd ered By: Renard Burgos on 10-07-2024 Lymphocytes Auto (Unsp spec) [#/Vol] 2.20 10*3/uL 0.83-4.51 [facility] Absolute neutrophil countOrd ered By: Renard Burgos on 10-07-2024 Neutrophils (Bld) [#/Vol] 5.1 10*3/uL 2.0-7.7 [facility] Automated lymphocyte count a s percentage of total leukocytesOrdered By: Renard Burgos on 10-07-2024 Lymphocytes/100 WBC Auto (Unsp spec) 27.2 % 19-41 [facility] Basophil percentageOrdered B y: Renard Burgos on 10-07-2024 Basophils/100 WBC (Bld) 0.5 % 0-1 [facility] CBC W/Diff, Automatedon 06-0 9-2024 Absolute Lymph 2.20 X10 3/uL Normal 0.83-4.51 [facility] Comment on above: Order Comment: 109-1 Performed By: #### L 100.0100 ####[facility] [address], [address] Absolute Neut 5.1 X10 3/uL Normal 2.0-7.7 [facility] Comment on above: Order Comment: 109-1 Performed By: #### L 100.0100 ####[facility] [address] [place], [address] Basophils/100 WBC (Bld) 0.5 % Normal 0-1 [facility] Comment on above: Order Comment: 109-1 Performed By: #### L 100.0100 ####[facility] [address], [address] Eosinophils/100 WBC (Bld) 0.9 % Normal 0-5 [facility] Comment on above: Order Comment: 109-1 Performed By: #### L 100.0100 ####[facility] [address], [address] Erythrocyte distribution width (RBC) [Ratio] 13.2 % Normal 11.6-14.6 [facility] Comment on above: Order Comment: 109-1 Performed By: #### L 100.0100 ####[facility] [address] [place], [address] Hematocrit (Bld) [Volume fraction] 40.8 % Normal 40-54 [facility] Comment on above: Order Comment: 109-1 Performed By: #### L 100.0100 ####[facility] [address], [address] Hemoglobin (Bld) [Mass/Vol] 13.8 g/dL Normal 13.0-16.5 [facility] Comment on above: Order Comment: 109-1 Performed By: #### L 100.0100 ####[facility] [address] [place], [address] IG% 0.200 Normal 0.0-0.9 [facility] Comment on above: Order Comment: 109-1 Result Comment: IG% - Immature Granulocytes (promyelocytes, myelocytes andmetamyelocytes) > 1% indicates that a LEFT SHIFT is Present. Performed By: #### L 100.0100 ####[facility] [address] [place], [address] Lymphocytes/100 WBC (Bld) 27.2 % Normal 19-41 [facility] Comment on above: Order Comment: 109-1 Performed By: #### L 100.0100 ####[facility] [address] [place], [address] MCH (RBC) [Entitic mass] 30.0 pg Normal 27.0-32.0 [facility] Comment on above: Order Comment: 109-1 Performed By: #### L 100.0100 ####[facility] [address] [place], [address] MCHC (RBC) [Mass/Vol] 33.8 g/dL Normal 32-36 [facility] Comment on above: Order Comment: 109-1 Performed By: #### L 100.0100 ####[facility] [address] [place], [address] MCV (RBC) [Entitic vol] 88.7 fL Normal 80-94 [facility] Comment on above: Order Comment: 109-1 Performed By: #### L 100.0100 ####[facility] [address] [place], [address] Monocytes/100 WBC (Bld) 8.4 % Normal 0-10 [facility] Comment on above: Order Comment: 109-1 Performed By: #### L 100.0100 ####[facility] [address], [address] Neutrophils/100 WBC (Bld) 62.8 % Normal 47-70 [facility] Comment on above: Order Comment: 109-1 Performed By: #### L 100.0100 ####[facility] [address], [address] Nucleated RBC (Bld) [#/Vol] 0 10*3/uL Normal 0-5 [facility] Comment on above: Order Comment: 109-1 Performed By: #### L 100.0100 ####[facility] [address] [place], [address] Platelet mean volume (Bld) [Entitic vol] 11.2 fL Normal 6.2-12.0 [facility] Comment on above: Order Comment: 109-1 Performed By: #### L 100.0100 ####[facility] [address] [place], [address] Platelets (Bld) [#/Vol] 214 10*3/uL Normal 150-450 [facility] Comment on above: Order Comment: 109-1 Performed By: #### L 100.0100 ####[facility] [address] [place], [address] RBC (Bld) [#/Vol] 4.60 10*6/uL Normal 4.6-6.2 [facility] Comment on above: Order Comment: 109-1 Performed By: #### L 100.0100 ####[facility] [address] [place], [address] RDW SD 43.0 fl Normal 35.1-43.9 [facility] Comment on above: Order Comment: 109-1 Performed By: #### L 100.0100 ####[facility] [address], [address] WBC (Bld) [#/Vol] 8.1 10*3/uL Normal 4.4-11.0 [facility] Comment on above: Order Comment: 109-1 Performed By: #### L 100.0100 ####[facility] [address] [place], [address] Eosinophil percentageOrdered By: Renard Burgos on 10-07-2024 Eosinophils/100 WBC (Bld) 0.9 % 0-5 [facility] Erythrocyte distribution wid th ratioOrdered By: Renard Burgos on 10-07-2024 Erythrocyte distribution width (RBC) [Ratio] 13.2 % 11.6-14.6 [facility] Erythrocyte distribution wid th standard deviationOrdered By: Renard Burgos on 10-07-2024 Erythrocyte distribution width (RBC) [Ratio] 43.0 fl 35.1-43.9 [facility] Hematocrit Auto (Bld) [Volum e fraction]Ordered By: Renard Burgos on 10-07-2024 Hematocrit (Bld) [Volume fraction] 40.8 % 40-54 [facility] Hemoglobin measurementOrdere d By: Renard Burgos on 10-07-2024 Hemoglobin (Bld) [Mass/Vol] 13.8 g/dL 13.0-16.5 [facility] Immature granulocytes/100 WB C Auto (Bld)Ordered By: Renard Burgos on 10-07-2024 Immature granulocytes/100 WBC (Bld) 0.200 % 0.0-0.9 [facility] Comment on above: IG% - Immature Granu locytes (promyelocytes, myelocytes and metamyelocytes) > 1% indicates that a LEFT SHIFT is Present. MCV (mean corpuscular volume ) determinationOrdered By: Renard Burgos on 10-07-2024 MCV (RBC) [Entitic vol] 88.7 fL 80-94 [facility] Mean corpuscular hemoglobin (MCH) determinationOrdered By: Renard Burgos on 10-07-2024 MCH (RBC) [Entitic mass] 30.0 pg 27.0-32.0 [facility] Mean corpuscular hemoglobin concentration (MCHC) determinationOrdered By: Renard Burgos on 10-07-2024 MCHC (RBC) [Mass/Vol] 33.8 g/dL 32-36 [facility] Mean platelet volume determi nationOrdered By: Renard Burgos on 10-07-2024 Platelet mean volume (Bld) [Entitic vol] 11.2 fL 6.2-12.0 [facility] Monocyte percentageOrdered B y: Renard Burgos on 10-07-2024 Monocytes/100 WBC (Bld) 8.4 % 0-10 [facility] Neutrophil percentageOrdered By: Renard Burgos on 10-07-2024 Neutrophils/100 WBC (Bld) 62.8 % 47-70 [facility] Nucleated red blood cell per centageOrdered By: Renard Burgos on 10-07-2024 Nucleated RBC/100 WBC (Bld) [Ratio] 0 % 0-5 [facility] Platelet countOrdered By: Garrick Bhatt on 10-07-2024 Platelets (Bld) [#/Vol] 214 10*3/uL 150-450 [facility] RBC Auto (Bld) [#/Vol]Ordere d By: Renard Burgos on 10-07-2024 RBC (Bld) [#/Vol] 4.60 10*6/uL 4.6-6.2 [facility] White blood cell (WBC) count Ordered By: Renard Burgos on 10-07-2024 WBC (Bld) [#/Vol] 8.1 10*3/uL 4.4-11.0 [facility] Absolute lymphocyte countOrd ered By: Renard Burgos on 09-30-2024 Lymphocytes Auto (Unsp spec) [#/Vol] 3.13 10*3/uL 0.83-4.51 [facility] Absolute neutrophil countOrd ered By: Renard Burgos on 09-30-2024 Neutrophils (Bld) [#/Vol] 5.6 10*3/uL 2.0-7.7 [facility] Automated lymphocyte count a s percentage of total leukocytesOrdered By: Renard Burgos on 09-30-2024 Lymphocytes/100 WBC Auto (Unsp spec) 31.7 % 19-41 [facility] Basophil percentageOrdered B y: Renard Burgos on 09-30-2024 Basophils/100 WBC (Bld) 0.6 % 0-1 [facility] CBC W/Diff, Automatedon 06- Absolute Lymph 3.13 X10 3/uL Normal 0.83-4.51 [facility] Comment on above: Order Comment: 109-1 Performed By: #### L 100.0100 ####[facility] [address] [place], [address] Absolute Neut 5.6 X10 3/uL Normal 2.0-7.7 [facility] Comment on above: Order Comment: 109-1 Performed By: #### L 100.0100 ####[facility] [address] [place], [address] Basophils/100 WBC (Bld) 0.6 % Normal 0-1 [facility] Comment on above: Order Comment: 109-1 Performed By: #### L 100.0100 ####[facility] [address] [place], [address] Eosinophils/100 WBC (Bld) 0.7 % Normal 0-5 [facility] Comment on above: Order Comment: 109-1 Performed By: #### L 100.0100 ####[facility] [address] [place], [address] Erythrocyte distribution width (RBC) [Ratio] 13.0 % Normal 11.6-14.6 [facility] Comment on above: Order Comment: 109-1 Performed By: #### L 100.0100 ####[facility] [address] [place], [address] Hematocrit (Bld) [Volume fraction] 46.9 % Normal 40-54 [facility] Comment on above: Order Comment: 109-1 Performed By: #### L 100.0100 ####[facility] [address] [place], [address] Hemoglobin (Bld) [Mass/Vol] 15.3 g/dL Normal 13.0-16.5 [facility] Comment on above: Order Comment: 109-1 Performed By: #### L 100.0100 ####[facility] [address] [place], [address] IG% 0.300 Normal 0.0-0.9 [facility] Comment on above: Order Comment: 109-1 Result Comment: IG% - Immature Granulocytes (promyelocytes, myelocytes andmetamyelocytes) > 1% indicates that a LEFT SHIFT is Present. Performed By: #### L 100.0100 ####[facility] [address] [place], [address] Lymphocytes/100 WBC (Bld) 31.7 % Normal 19-41 [facility] Comment on above: Order Comment: 109-1 Performed By: #### L 100.0100 ####[facility] [address] [place], [address] MCH (RBC) [Entitic mass] 29.7 pg Normal 27.0-32.0 [facility] Comment on above: Order Comment: 109-1 Performed By: #### L 100.0100 ####[facility] [address] [place], [address] MCHC (RBC) [Mass/Vol] 32.6 g/dL Normal 32-36 [facility] Comment on above: Order Comment: 109-1 Performed By: #### L 100.0100 ####[facility] [address] [place], [address] MCV (RBC) [Entitic vol] 91.1 fL Normal 80-94 [facility] Comment on above: Order Comment: 109-1 Performed By: #### L 100.0100 ####[facility] [address] [place], [address] Monocytes/100 WBC (Bld) 10.4 % High 0-10 [facility] Comment on above: Order Comment: 109-1 Performed By: #### L 100.0100 ####[facility] [address] [place], [address] Neutrophils/100 WBC (Bld) 56.3 % Normal 47-70 [facility] Comment on above: Order Comment: 109-1 Performed By: #### L 100.0100 ####[facility] [address] [place], [address] Nucleated RBC (Bld) [#/Vol] 0 10*3/uL Normal 0-5 [facility] Comment on above: Order Comment: 109-1 Performed By: #### L 100.0100 ####[facility] [address] [place], [address] Platelet mean volume (Bld) [Entitic vol] 11.7 fL Normal 6.2-12.0 [facility] Comment on above: Order Comment: 109-1 Performed By: #### L 100.0100 ####[facility] [address] [place], [address] Platelets (Bld) [#/Vol] 208 10*3/uL Normal 150-450 [facility] Comment on above: Order Comment: 109-1 Performed By: #### L 100.0100 ####[facility] [address] [place], [address] RBC (Bld) [#/Vol] 5.15 10*6/uL Normal 4.6-6.2 [facility] Comment on above: Order Comment: 109-1 Performed By: #### L 100.0100 ####[facility] [address] [place], [address] RDW SD 42.7 fl Normal 35.1-43.9 [facility] Comment on above: Order Comment: 109-1 Performed By: #### L 100.0100 ####[facility] [address] [place], [place], [address] WBC (Bld) [#/Vol] 9.9 10*3/uL Normal 4.4-11.0 [facility] Comment on above: Order Comment: 109-1 Performed By: #### L 100.0100 ####[facility] [address] [place], [place], [address] Eosinophil percentageOrdered By: Renard Burgos on 09-30-2024 Eosinophils/100 WBC (Bld) 0.7 % 0-5 [facility] Erythrocyte distribution wid th ratioOrdered By: Renard Burgos on 09-30-2024 Erythrocyte distribution width (RBC) [Ratio] 13.0 % 11.6-14.6 [facility] Erythrocyte distribution wid th standard deviationOrdered By: Renard Burgos on 09-30-2024 Erythrocyte distribution width (RBC) [Ratio] 42.7 fl 35.1-43.9 [facility] Hematocrit Auto (Bld) [Volum e fraction]Ordered By: Renard Burgos on 09-30-2024 Hematocrit (Bld) [Volume fraction] 46.9 % 40-54 [facility] Hemoglobin measurementOrdere d By: Renard Burgos on 09-30-2024 Hemoglobin (Bld) [Mass/Vol] 15.3 g/dL 13.0-16.5 [facility] Immature granulocytes/100 WB C Auto (Bld)Ordered By: Renard Burgos on 09-30-2024 Immature granulocytes/100 WBC (Bld) 0.300 % 0.0-0.9 [facility] Comment on above: IG% - Immature Granu locytes (promyelocytes, myelocytes and metamyelocytes) > 1% indicates that a LEFT SHIFT is Present. MCV (mean corpuscular volume ) determinationOrdered By: Renard Burgos on 09-30-2024 MCV (RBC) [Entitic vol] 91.1 fL 80-94 [facility] Mean corpuscular hemoglobin (MCH) determinationOrdered By: Renard Burgos on 09-30-2024 MCH (RBC) [Entitic mass] 29.7 pg 27.0-32.0 [facility] Mean corpuscular hemoglobin concentration (MCHC) determinationOrdered By: Renard Burgos on 09-30-2024 MCHC (RBC) [Mass/Vol] 32.6 g/dL 32-36 [facility] Mean platelet volume determi nationOrdered By: Renard Burgos on 09-30-2024 Platelet mean volume (Bld) [Entitic vol] 11.7 fL 6.2-12.0 [facility] Monocyte percentageOrdered B y: Renard Burgos on 09-30-2024 Monocytes/100 WBC (Bld) 10.4 % High 0-10 [facility] Neutrophil percentageOrdered By: Renard Burgos on 09-30-2024 Neutrophils/100 WBC (Bld) 56.3 % 47-70 [facility] Nucleated red blood cell per centageOrdered By: Renard Burgos on 09-30-2024 Nucleated RBC/100 WBC (Bld) [Ratio] 0 % 0-5 [facility] Platelet countOrdered By: Garrick Bhatt on 09-30-2024 Platelets (Bld) [#/Vol] 208 10*3/uL 150-450 [facility] RBC Auto (Bld) [#/Vol]Ordere d By: Renard Burgos on 09-30-2024 RBC (Bld) [#/Vol] 5.15 10*6/uL 4.6-6.2 [facility] White blood cell (WBC) count Ordered By: Renard Burgos on 09-30-2024 WBC (Bld) [#/Vol] 9.9 10*3/uL 4.4-11.0 [facility] Absolute lymphocyte countOrd ered By: Renard Burgos on 09-24-2024 Lymphocytes Auto (Unsp spec) [#/Vol] 1.97 10*3/uL 0.83-4.51 [facility] Absolute neutrophil countOrd ered By: Renard Burgos on 09-24-2024 Neutrophils (Bld) [#/Vol] 6.8 10*3/uL 2.0-7.7 [facility] Automated blood erythrocyte countOrdered By: Renard Burgos on 09-24-2024 RBC (Bld) [#/Vol] 4.48 10*6/uL Low 4.6-6.2 [facility] Comment on above: Order Comment: 109 Performed By: #### L 100.0100 ####[facility] [address] [place], [address] Automated blood hematocrit ( percentage)Ordered By: Renard Burgos on 09-24-2024 Hematocrit (Bld) [Volume fraction] 40.4 % Normal 40-54 [facility] Comment on above: Order Comment: 109 Performed By: #### L 100.0100 ####[facility] [address] [place], [address] Automated lymphocyte count a s percentage of total leukocytesOrdered By: Renard Burgos on 09-24-2024 Lymphocytes/100 WBC Auto (Unsp spec) 20.5 % 19-41 [facility] Basophil percentageOrdered B y: Renard Burgos on 09-24-2024 Basophils/100 WBC (Bld) 0.5 % Normal 0-1 [facility] Comment on above: Order Comment: 109 Performed By: #### L 100.0100 ####[facility] [address] [place], [address] CBC W/Diff, Automatedon 08-30 Absolute Lymph 1.97 X10 3/uL Normal 0.83-4.51 [facility] Comment on above: Order Comment: 109 Performed By: #### L 100.0100 ####[facility] [address] [place], [address] Absolute Neut 6.8 X10 3/uL Normal 2.0-7.7 [facility] Comment on above: Order Comment: 109 Performed By: #### L 100.0100 ####[facility] [address] [place], [address] IG% 0.300 Normal 0.0-0.9 [facility] Comment on above: Order Comment: 109 Result Comment: IG% - Immature Granulocytes (promyelocytes, myelocytes andmetamyelocytes) > 1% indicates that a LEFT SHIFT is Present. Performed By: #### L 100.0100 ####[facility] [address] [place], [address] Lymphocytes/100 WBC (Bld) 20.5 % Normal 19-41 [facility] Comment on above: Order Comment: 109 Performed By: #### L 100.0100 ####[facility] [address] [place], [address] Nucleated RBC (Bld) [#/Vol] 0 10*3/uL Normal 0-5 [facility] Comment on above: Order Comment: 109 Performed By: #### L 100.0100 ####[facility] [address] [place], [address] RDW SD 42.9 fl Normal 35.1-43.9 [facility] [facility] Comment [facility]: Order Comment: 109 Performed By: #### L 100.0100 ####[facility] [address] [place], [address] Eosinophil percentageOrdered By: Renard Burgos on 09-24-2024 Eosinophils/100 WBC (Bld) 0.5 % Normal 0-5 [facility] Comment on above: Order Comment: 109 Performed By: #### L 100.0100 ####[facility] [address] [place], [address] Erythrocyte distribution wid th ratioOrdered By: Renard Burgos on 09-24-2024 Erythrocyte distribution width (RBC) [Ratio] 13.1 % Normal 11.6-14.6 [facility] Comment on above: Order Comment: 109 Performed By: #### L 100.0100 ####[facility] [address] [place], [address] Erythrocyte distribution wid th standard deviationOrdered By: Renard Burgos on 09-24-2024 Erythrocyte distribution width (RBC) [Ratio] 42.9 fl 35.1-43.9 [facility] Hemoglobin measurementOrdere d By: Renard Burgos on 09-24-2024 Hemoglobin (Bld) [Mass/Vol] 13.4 g/dL Normal 13.0-16.5 [facility] Comment on above: Order Comment: 109 Performed By: #### L 100.0100 ####[facility] [address] [place], [address] Immature granulocytes/100 WB C Auto (Bld)Ordered By: Renard Burgos on 09-24-2024 Immature granulocytes/100 WBC (Bld) 0.300 % 0.0-0.9 [facility] Comment on above: IG% - Immature Granu locytes (promyelocytes, myelocytes and metamyelocytes) > 1% indicates that a LEFT SHIFT is Present. MCV (mean corpuscular volume ) determinationOrdered By: Renard Burgos on 09-24-2024 MCV (RBC) [Entitic vol] 90.2 fL Normal 80-94 [facility] Comment on above: Order Comment: 109 Performed By: #### L 100.0100 ####[facility] [address] [place], [place], [phone] Mean corpuscular hemoglobin (MCH) determinationOrdered By: Renard Burgos on 09-24-2024 MCH (RBC) [Entitic mass] 29.9 pg Normal 27.0-32.0 [facility] Comment on above: Order Comment: 109 Performed By: #### L 100.0100 ####[facility] [address] [place], [place], [phone] Mean corpuscular hemoglobin concentration (MCHC) determinationOrdered By: Renard Burgos on 09-24-2024 MCHC (RBC) [Mass/Vol] 33.2 g/dL Normal 32-36 [facility] Comment on above: Order Comment: 109 Performed By: #### L 100.0100 ####[facility] [address] [place], [place], [phone] Mean platelet volume determi nationOrdered By: Renard Burgos on 09-24-2024 Platelet mean volume (Bld) [Entitic vol] 11.3 fL Normal 6.2-12.0 [facility] Comment on above: Order Comment: 109 Performed By: #### L 100.0100 ####[facility] [address] [place], [address] Monocyte percentageOrdered B y: Renard Burgos on 09-24-2024 Monocytes/100 WBC (Bld) 7.2 % Normal 0-10 [facility] Comment on above: Order Comment: 109 Performed By: #### L 100.0100 ####[facility] [address] [place], [address] Neutrophil percentageOrdered By: Renard Burgos on 09-24-2024 Neutrophils/100 WBC (Bld) 71.0 % High 47-70 [facility] Comment on above: Order Comment: 109 Performed By: #### L 100.0100 ####[facility] [address] [place], [address] Nucleated red blood cell per centageOrdered By: Renard Burgos on 09-24-2024 Nucleated RBC/100 WBC (Bld) [Ratio] 0 % 0-5 [facility] Platelet countOrdered By: Garrick Bhatt on 09-24-2024 Platelets (Bld) [#/Vol] 187 10*3/uL Normal 150-450 [facility] Comment on above: Order Comment: 109 Performed By: #### L 100.0100 ####[facility] [address] [place], [address] White blood cell (WBC) count Ordered By: Renard Burgos on 09-24-2024 WBC (Bld) [#/Vol] 9.6 10*3/uL Normal 4.4-11.0 [facility] Comment on above: Order Comment: 109 Performed By: #### L 100.0100 ####[facility] [address] [place], [address] Absolute lymphocyte countOrd ered By: Renard Burgos on 09-16-2024 Lymphocytes Auto (Unsp spec) [#/Vol] 2.44 10*3/uL 0.83-4.51 [facility] Absolute neutrophil countOrd ered By: Renard Amezquitahola on 09-16-2024 Neutrophils (Bld) [#/Vol] 5.5 10*3/uL 2.0-7.7 [facility] Automated lymphocyte count a s percentage of total leukocytesOrdered By: Renard Loretta on 09-16-2024 Lymphocytes/100 WBC Auto (Unsp spec) 27.7 % 19-41 [facility] Basophil percentageOrdered B y: Renard Hensleyrustam on 09-16-2024 Basophils/100 WBC (Bld) 0.8 % 0-1 [facility] CBC W/Diff, Automatedon 08-29 Absolute Lymph 2.44 X10 3/uL Normal 0.83-4.51 [facility] Comment on above: Order Comment: 109.1 Performed By: #### L 100.0100 ####[facility] [address] [place], [address] Absolute Neut 5.5 X10 3/uL Normal 2.0-7.7 [facility] Comment on above: Order Comment: 109.1 Performed By: #### L 100.0100 ####[facility] [address] [place], [address] Basophils/100 WBC (Bld) 0.8 % Normal 0-1 [facility] Comment on above: Order Comment: 109.1 Performed By: #### L 100.0100 ####[facility] [address] [place], [address] Eosinophils/100 WBC (Bld) 0.7 % Normal 0-5 [facility] Comment on above: Order Comment: 109.1 Performed By: #### L 100.0100 ####[facility] [address] [place], [address] Erythrocyte distribution width (RBC) [Ratio] 13.1 % Normal 11.6-14.6 [facility] Comment on above: Order Comment: 109.1 Performed By: #### L 100.0100 ####[facility] [address] [place], [address] Hematocrit (Bld) [Volume fraction] 46.8 % Normal 40-54 [facility] Comment on above: Order Comment: 109.1 Performed By: #### L 100.0100 ####[facility] [address] [place], [address] Hemoglobin (Bld) [Mass/Vol] 15.4 g/dL Normal 13.0-16.5 [facility] Comment on above: Order Comment: 109.1 Performed By: #### L 100.0100 ####[facility] [address] [place], [address] IG% 0.200 Normal 0.0-0.9 [facility] Comment on above: Order Comment: 109.1 Result Comment: IG% - Immature Granulocytes (promyelocytes, myelocytes andmetamyelocytes) > 1% indicates that a LEFT SHIFT is Present. Performed By: #### L 100.0100 ####[facility] [address] [place], [address] Lymphocytes/100 WBC (Bld) 27.7 % Normal 19-41 [facility] Comment on above: Order Comment: 109.1 Performed By: #### L 100.0100 ####[facility] [address] [place], [address] MCH (RBC) [Entitic mass] 30.1 pg Normal 27.0-32.0 [facility] Comment on above: Order Comment: 109.1 Performed By: #### L 100.0100 ####[facility] [address] [place], [address] MCHC (RBC) [Mass/Vol] 32.9 g/dL Normal 32-36 [facility] Comment on above: Order Comment: 109.1 Performed By: #### L 100.0100 ####[facility] [address] [place], [address] MCV (RBC) [Entitic vol] 91.4 fL Normal 80-94 [facility] Comment on above: Order Comment: 109.1 Performed By: #### L 100.0100 ####[facility] [address] [place], [address] Monocytes/100 WBC (Bld) 8.5 % Normal 0-10 [facility] Comment on above: Order Comment: 109.1 Performed By: #### L 100.0100 ####[facility] [address] [place], [address] Neutrophils/100 WBC (Bld) 62.1 % Normal 47-70 [facility] Comment on above: Order Comment: 109.1 Performed By: #### L 100.0100 ####[facility] [address] [place], [address] Nucleated RBC (Bld) [#/Vol] 0 10*3/uL Normal 0-5 [facility] Comment on above: Order Comment: 109.1 Performed By: #### L 100.0100 ####[facility] [address] [place], [address] Platelet mean volume (Bld) [Entitic vol] 10.6 fL Normal 6.2-12.0 [facility] Comment on above: Order Comment: 109.1 Performed By: #### L 100.0100 ####[facility] [address] [place], [address] Platelets (Bld) [#/Vol] 190 10*3/uL Normal 150-450 [facility] Comment on above: Order Comment: 109.1 Performed By: #### L 100.0100 ####[facility] [address] [place], [address] RBC (Bld) [#/Vol] 5.12 10*6/uL Normal 4.6-6.2 [facility] Comment on above: Order Comment: 109.1 Performed By: #### L 100.0100 ####[facility] [address] [place], [address] RDW SD 43.3 fl Normal 35.1-43.9 [facility] Comment on above: Order Comment: 109.1 Performed By: #### L 100.0100 ####[facility] [address] [place], [address] WBC (Bld) [#/Vol] 8.8 10*3/uL Normal 4.4-11.0 [facility] Comment on above: Order Comment: 109.1 Performed By: #### L 100.0100 ####[facility] [address] [place], [address] Eosinophil percentageOrdered By: Renard Burgos on 09-16-2024 Eosinophils/100 WBC (Bld) 0.7 % 0-5 [facility] Erythrocyte distribution wid th ratioOrdered By: Renard Burgos on 09-16-2024 Erythrocyte distribution width (RBC) [Ratio] 13.1 % 11.6-14.6 [facility] Erythrocyte distribution wid th standard deviationOrdered By: Renard Burgos on 09-16-2024 Erythrocyte distribution width (RBC) [Ratio] 43.3 fl 35.1-43.9 [facility] Hematocrit Auto (Bld) [Volum e fraction]Ordered By: Renard Burgos on 09-16-2024 Hematocrit (Bld) [Volume fraction] 46.8 % 40-54 [facility] Hemoglobin measurementOrdere d By: Renard Burgos on 09-16-2024 Hemoglobin (Bld) [Mass/Vol] 15.4 g/dL 13.0-16.5 [facility] Immature granulocytes/100 WB C Auto (Bld)Ordered By: Renard Burgos on 09-16-2024 Immature granulocytes/100 WBC (Bld) 0.200 % 0.0-0.9 [facility] Comment on above: IG% - Immature Granu locytes (promyelocytes, myelocytes and metamyelocytes) > 1% indicates that a LEFT SHIFT is Present. MCV (mean corpuscular volume ) determinationOrdered By: Renard Burgos on 09-16-2024 MCV (RBC) [Entitic vol] 91.4 fL 80-94 [facility] Mean corpuscular hemoglobin (MCH) determinationOrdered By: Renard Burgos on 09-16-2024 MCH (RBC) [Entitic mass] 30.1 pg 27.0-32.0 [facility] Mean corpuscular hemoglobin concentration (MCHC) determinationOrdered By: Renard Burgos on 09-16-2024 MCHC (RBC) [Mass/Vol] 32.9 g/dL 32-36 [facility] Mean platelet volume determi nationOrdered By: Renard Burgos on 09-16-2024 Platelet mean volume (Bld) [Entitic vol] 10.6 fL 6.2-12.0 [facility] Monocyte percentageOrdered B y: Renard Burgos on 09-16-2024 Monocytes/100 WBC (Bld) 8.5 % 0-10 [facility] Neutrophil percentageOrdered By: Renard Burgos on 09-16-2024 Neutrophils/100 WBC (Bld) 62.1 % 47-70 [facility] Nucleated red blood cell per centageOrdered By: Renard Burgos on 09-16-2024 Nucleated RBC/100 WBC (Bld) [Ratio] 0 % 0-5 [facility] Platelet countOrdered By: Garrick Bhatt on 09-16-2024 Platelets (Bld) [#/Vol] 190 10*3/uL 150-450 [facility] RBC Auto (Bld) [#/Vol]Ordere d By: Renard Burgos on 09-16-2024 RBC (Bld) [#/Vol] 5.12 10*6/uL 4.6-6.2 [facility] White blood cell (WBC) count Ordered By: Renard Burgos on 09-16-2024 WBC (Bld) [#/Vol] 8.8 10*3/uL 4.4-11.0 [facility] Anion gap in Serum or Plasma Ordered By: Renard Burgos on 09-11-2024 Anion gap [Moles/Vol] 11 mmol/L 5-15 [facility] Automated blood erythrocyte countOrdered By: Renard Burgos on 09-11-2024 RBC (Bld) [#/Vol] 4.67 10*6/uL Normal 4.6-6.2 [facility] Comment on above: Order Comment: 109-1 Performed By: #### L 100.0500, L500.2500 ####[facility] [address] [place], [address] Automated blood hematocrit ( percentage)Ordered By: Renard Burgos on 09-11-2024 Hematocrit (Bld) [Volume fraction] 42.7 % Normal 40-54 [facility] Comment on above: Order Comment: 109-1 Performed By: #### L 100.0500, L500.2500 ####[facility] [address] [place], [address] BUN/creatinine ratioOrdered By: Renard Burgos on 09-11-2024 Urea nitrogen/Creatinine [Mass ratio] 23.0 mg/mg [facility] Basic Metabolic Profile (BMP )on 09-11-2024 BUN/CRE 23.0 RATIO [facility] Comment on above: Order Comment: 109-1 Performed By: #### L 100.0500, L500.2500 ####[facility] [address] [place], [address] Calcium [Mass/Vol] 8.7 mg/dL Normal 7.6-11.0 [facility] Comment on above: Order Comment: 109-1 Performed By: #### L 100.0500, L500.2500 ####[facility] [address] [place], [address] Chloride [Moles/Vol] 104 mmol/L Normal 98-108 [facility] Comment on above: Order Comment: 109-1 Performed By: #### L 100.0500, L500.2500 ####[facility] [address] [place] [place], [address] CO2 [Moles/Vol] 25.9 mmol/L Normal 21.0-32.0 [facility] Comment on above: Order Comment: 109-1 Performed By: #### L 100.0500, L500.2500 ####[facility] [address], [address] Creatinine [Mass/Vol] 0.58 mg/dL Low 0.70-1.20 [facility] Comment on above: Order Comment: 109-1 Performed By: #### L 100.0500, L500.2500 ####[facility] [address] [place], [address] GAP 11 Normal 5-15 [facility] Comment on above: Order Comment: 109-1 Performed By: #### L 100.0500, L500.2500 ####[facility] [address] [place], [address] GFR/1.73 sq M.predicted among non-blacks MDRD (S/P/Bld) [Vol rate/Area] 107 mL/min/{1.73_m2} Normal >60 [facility] Comment on above: Order Comment: 109-1 Result Comment: mL/m in/1.73m2 CKD-EPI Creatinine Equation (2020) Performed By: #### L 100.0500, L500.2500 ####[facility] [address], [address] Glucose [Mass/Vol] 113 mg/dL High 70-99 [facility] Comment on above: Order Comment: 109-1 Performed By: #### L 100.0500, L500.2500 ####[facility] [address], [address] Potassium [Moles/Vol] 3.8 mmol/L Normal 3.3-5.1 [facility] Comment on above: Order Comment: 109-1 Performed By: #### L 100.0500, L500.2500 ####[facility] [address] [place], [address] Sodium [Moles/Vol] 141 mmol/L Normal 133-145 [facility] Comment on above: Order Comment: 109-1 Performed By: #### L 100.0500, L500.2500 ####[facility] [address] [place], [address] Urea nitrogen [Mass/Vol] 13 mg/dL Normal 4-19 [facility] Comment on above: Order Comment: 109-1 Performed By: #### L 100.0500, L500.2500 ####[facility] [address] [place], [address] CBC-Complete Blood Cnt No Di ffon 09-11-2024 RDW SD 43.7 fl Normal 35.1-43.9 [facility] Comment on above: Order Comment: 109-1 Performed By: #### L 100.0500, L500.2500 ####[facility] [address] [place], [address] Carbon dioxide, total [Moles /volume] in Central venous bloodOrdered By: Renard Burgos on 09-11-2024 CO2 [Moles/Vol] 25.9 mmol/L 21.0-32.0 [facility] Chloride assayOrdered By: Garrick Bhatt on 09-11-2024 Chloride [Moles/Vol] 104 mmol/L 98-108 [facility] Erythrocyte distribution wid th ratioOrdered By: Renard Burgos on 09-11-2024 Erythrocyte distribution width (RBC) [Ratio] 13.2 % Normal 11.6-14.6 [facility] Comment on above: Order Comment: 109-1 Performed By: #### L 100.0500, L500.2500 ####[facility] [address] [place], [address] Erythrocyte distribution wid th standard deviationOrdered By: Renard Burgos on 09-11-2024 Erythrocyte distribution width (RBC) [Ratio] 43.7 fl 35.1-43.9 [facility] Glomerular filtration rate ( GFR) estimation/1.73 sq m using serum, plasma, or whole bOrdered By: Renard Burgos on 09-11-2024 GFR/1.73 sq M.predicted among non-blacks MDRD (S/P/Bld) [Vol rate/Area] 107 mL/min/{1.73_m2} >60 [facility] Comment on above: mL/min/1.73m2 CKD-EP I Creatinine Equation (2020) Hemoglobin measurementOrdere d By: Renard Burgos on 09-11-2024 Hemoglobin (Bld) [Mass/Vol] 14.0 g/dL Normal 13.0-16.5 [facility] Comment on above: Order Comment: 109-1 Performed By: #### L 100.0500, L500.2500 ####[facility] [address] [place], [place], [address] MCV (mean corpuscular volume ) determinationOrdered By: Renard Burgos on 09-11-2024 MCV (RBC) [Entitic vol] 91.4 fL Normal 80-94 [facility] Comment on above: Order Comment: 109-1 Performed By: #### L 100.0500, L500.2500 ####[facility] [address] [place], [address] Mean corpuscular hemoglobin (MCH) determinationOrdered By: Renard Burgos on 09-11-2024 MCH (RBC) [Entitic mass] 30.0 pg Normal 27.0-32.0 [facility] Comment on above: Order Comment: 109-1 Performed By: #### L 100.0500, L500.2500 ####[facility] [address] [place], [address] Mean corpuscular hemoglobin concentration (MCHC) determinationOrdered By: Renard Burgos on 09-11-2024 MCHC (RBC) [Mass/Vol] 32.8 g/dL Normal 32-36 [facility] Comment on above: Order Comment: 109-1 Performed By: #### L 100.0500, L500.2500 ####[facility] [address] [place], [address] Mean platelet volume determi nationOrdered By: Renard Burgos on 09-11-2024 Platelet mean volume (Bld) [Entitic vol] 11.3 fL Normal 6.2-12.0 [facility] Comment on above: Order Comment: 109-1 Performed By: #### L 100.0500, L500.2500 ####[facility] [address] [place], [address] Platelet countOrdered By: Garrick Bhatt on 09-11-2024 Platelets (Bld) [#/Vol] 191 10*3/uL Normal 150-450 [facility] Comment on above: Order Comment: 109-1 Performed By: #### L 100.0500, L500.2500 ####[facility] [address] [place], [address] Potassium measurement (mass/ volume)Ordered By: Renard Burgos on 09-11-2024 Potassium (Unsp spec) [Mass/Vol] 3.8 mmol/L 3.3-5.1 [facility] Serum creatinine measurement (mass/volume)Ordered By: Renard Burgos on 09-11-2024 Creatinine [Mass/Vol] 0.58 mg/dL Low 0.70-1.20 [facility] Serum glucose measurement (m ass/volume)Ordered By: Renard Burgos on 09-11-2024 Glucose [Mass/Vol] 113 mg/dL High 70-99 [facility] Serum or plasma calcium gordy urement (mass/volume)Ordered By: Renard Burgos on 09-11-2024 Calcium [Mass/Vol] 8.7 mg/dL 7.6-11.0 [facility] Serum or plasma urea nitroge n measurement (mass/volume)Ordered By: Renard Burgos on 09-11-2024 Urea nitrogen [Mass/Vol] 13 mg/dL 4- [facility] Sodium levelOrdered By: Lamine Burgos on 09-11-2024 Sodium [Moles/Vol] 141 mmol/L 133-145 [facility] White blood cell (WBC) count Ordered By: Renard Burgos on 09-11-2024 WBC (Bld) [#/Vol] 7.6 10*3/uL Normal 4.4-11.0 [facility] Comment on above: Order Comment: 109-1 Performed By: #### L 100.0500, L500.2500 ####[facility] [address] [place], [place], [id number] Absolute lymphocyte countOrd ered By: Renard Burgos on 09-09-2024 Lymphocytes Auto (Unsp spec) [#/Vol] 2.24 10*3/uL 0.83-4.51 [facility] Absolute neutrophil countOrd ered By: Renard Burgos on 09-09-2024 Neutrophils (Bld) [#/Vol] 8.7 10*3/uL High 2.0-7.7 [facility] Automated lymphocyte count a s percentage of total leukocytesOrdered By: Renard Burgos on 09-09-2024 Lymphocytes/100 WBC Auto (Unsp spec) 19.1 % 19- [facility] Basophil percentageOrdered B y: Renard Burgos on 09-09-2024 Basophils/100 WBC (Bld) 0.4 % 0-1 [facility] CBC W/Diff, Automatedon 08-29 Absolute Lymph 2.24 X10 3/uL Normal 0.83-4.51 [facility] Comment on above: Order Comment: 109-1 Performed By: #### L 100.0100 ####[facility] [address] [place], [place], [id number] Absolute Neut 8.7 X10 3/uL High 2.0-7.7 [facility] Comment on above: Order Comment: 109-1 Performed By: #### L 100.0100 ####[facility] [address] [place], [address] Basophils/100 WBC (Bld) 0.4 % Normal 0-1 [facility] Comment on above: Order Comment: 109-1 Performed By: #### L 100.0100 ####[facility] [address] [place], [address] Eosinophils/100 WBC (Bld) 0.5 % Normal 0-5 [facility] Comment on above: Order Comment: 109-1 Performed By: #### L 100.0100 ####[facility] [address] [place], [address] Erythrocyte distribution width (RBC) [Ratio] 13.0 % Normal 11.6-14.6 [facility] Comment on above: Order Comment: 109-1 Performed By: #### L 100.0100 ####[facility] [address] [place], [address] Hematocrit (Bld) [Volume fraction] 44.7 % Normal 40-54 [facility] Comment on above: Order Comment: 109-1 Performed By: #### L 100.0100 ####[facility] [address] [place], [address] Hemoglobin (Bld) [Mass/Vol] 14.6 g/dL Normal 13.0-16.5 [facility] Comment on above: Order Comment: 109-1 Performed By: #### L 100.0100 ####[facility] [address] [place], [address] IG% 0.300 Normal 0.0-0.9 [facility] Comment on above: Order Comment: 109-1 Result Comment: IG% - Immature Granulocytes (promyelocytes, myelocytes andmetamyelocytes) > 1% indicates that a LEFT SHIFT is Present. Performed By: #### L 100.0100 ####[facility] [address] [place], [address] Lymphocytes/100 WBC (Bld) 19.1 % Normal 19-41 [facility] Comment on above: Order Comment: 109-1 Performed By: #### L 100.0100 ####[facility] [address] [place], [address] MCH (RBC) [Entitic mass] 30.1 pg Normal 27.0-32.0 [facility] Comment on above: Order Comment: 109-1 Performed By: #### L 100.0100 ####[facility] [address] [place], [address] MCHC (RBC) [Mass/Vol] 32.7 g/dL Normal 32-36 [facility] Comment on above: Order Comment: 109-1 Performed By: #### L 100.0100 ####[facility] [address] [place], [address] MCV (RBC) [Entitic vol] 92.2 fL Normal 80-94 [facility] Comment on above: Order Comment: 109-1 Performed By: #### L 100.0100 ####[facility] [address] [place], [address] Monocytes/100 WBC (Bld) 5.1 % Normal 0-10 [facility] Comment on above: Order Comment: 109-1 Performed By: #### L 100.0100 ####[facility] [address] [place], [address] Neutrophils/100 WBC (Bld) 74.6 % High 47-70 [facility] Comment on above: Order Comment: 109-1 Performed By: #### L 100.0100 ####[facility] [address] [place], [address] Nucleated RBC (Bld) [#/Vol] 0 10*3/uL Normal 0-5 [facility] Comment on above: Order Comment: 109-1 Performed By: #### L 100.0100 ####[facility] [address] [place], [address] Platelet mean volume (Bld) [Entitic vol] 11.6 fL Normal 6.2-12.0 [facility] Comment on above: Order Comment: 109-1 Performed By: #### L 100.0100 ####[facility] [address] [place], [address] Platelets (Bld) [#/Vol] 189 10*3/uL Normal 150-450 [facility] Comment on above: Order Comment: 109-1 Performed By: #### L 100.0100 ####[facility] [address] [place], [address] RBC (Bld) [#/Vol] 4.85 10*6/uL Normal 4.6-6.2 [facility] Comment on above: Order Comment: 109-1 Performed By: #### L 100.0100 ####[facility] [address] [place], [address] RDW SD 43.8 fl Normal 35.1-43.9 [facility] Comment on above: Order Comment: 109-1 Performed By: #### L 100.0100 ####[facility] [address] [place], [address] WBC (Bld) [#/Vol] 11.7 10*3/uL High 4.4-11.0 [facility] Comment on above: Order Comment: 109-1 Performed By: #### L 100.0100 ####[facility] [address] [place], [address] Eosinophil percentageOrdered By: Renard Burgos on 09-09-2024 Eosinophils/100 WBC (Bld) 0.5 % 0-5 [facility] Erythrocyte distribution wid th ratioOrdered By: Renard Burgos on 09-09-2024 Erythrocyte distribution width (RBC) [Ratio] 13.0 % 11.6-14.6 [facility] Erythrocyte distribution wid th standard deviationOrdered By: Renard Burgos on 09-09-2024 Erythrocyte distribution width (RBC) [Ratio] 43.8 fl 35.1-43.9 [facility] Hematocrit Auto (Bld) [Volum e fraction]Ordered By: Renard Burgos on 09-09-2024 Hematocrit (Bld) [Volume fraction] 44.7 % 40-54 [facility] Hemoglobin measurementOrdere d By: Renard Burgos on 09-09-2024 Hemoglobin (Bld) [Mass/Vol] 14.6 g/dL 13.0-16.5 [facility] Immature granulocytes/100 WB C Auto (Bld)Ordered By: Renard Burgos on 09-09-2024 Immature granulocytes/100 WBC (Bld) 0.300 % 0.0-0.9 [facility] Comment on above: IG% - Immature Granu locytes (promyelocytes, myelocytes and metamyelocytes) > 1% indicates that a LEFT SHIFT is Present. MCV (mean corpuscular volume ) determinationOrdered By: Renard Burgos on 09-09-2024 MCV (RBC) [Entitic vol] 92.2 fL 80-94 [facility] Mean corpuscular hemoglobin (MCH) determinationOrdered By: Renard Burgos on 09-09-2024 MCH (RBC) [Entitic mass] 30.1 pg 27.0-32.0 [facility] Mean corpuscular hemoglobin concentration (MCHC) determinationOrdered By: Renard Burgos on 09-09-2024 MCHC (RBC) [Mass/Vol] 32.7 g/dL 32-36 [facility] Mean platelet volume determi nationOrdered By: Renard Burgos on 09-09-2024 Platelet mean volume (Bld) [Entitic vol] 11.6 fL 6.2-12.0 [facility] Monocyte percentageOrdered B y: Renard Burgos on 09-09-2024 Monocytes/100 WBC (Bld) 5.1 % 0-10 [facility] Neutrophil percentageOrdered By: Renard Burgos on 09-09-2024 Neutrophils/100 WBC (Bld) 74.6 % High 47-70 [facility] Nucleated red blood cell per centageOrdered By: Renard Burgos on 09-09-2024 Nucleated RBC/100 WBC (Bld) [Ratio] 0 % 0-5 [facility] Platelet countOrdered By: Garrick Bhatt on 09-09-2024 Platelets (Bld) [#/Vol] 189 10*3/uL 150-450 [facility] RBC Auto (Bld) [#/Vol]Ordere d By: Renard Burgos on 09-09-2024 RBC (Bld) [#/Vol] 4.85 10*6/uL 4.6-6.2 [facility] White blood cell (WBC) count Ordered By: Renard Burgos on 09-09-2024 WBC (Bld) [#/Vol] 11.7 10*3/uL High 4.4-11.0 [facility] Absolute lymphocyte countOrd ered By: Renard Burgos on 09-02-2024 Lymphocytes Auto (Unsp spec) [#/Vol] 2.07 10*3/uL 0.83-4.51 [facility] Absolute neutrophil countOrd ered By: Renard Burgos on 09-02-2024 Neutrophils (Bld) [#/Vol] 5.8 10*3/uL 2.0-7.7 [facility] Automated lymphocyte count a s percentage of total leukocytesOrdered By: Renard Burgos on 09-02-2024 Lymphocytes/100 WBC Auto (Unsp spec) 24.4 % 19-41 [facility] Basophil percentageOrdered B y: Renard Burgos on 09-02-2024 Basophils/100 WBC (Bld) 0.6 % 0-1 [facility] CBC W/Diff, Automatedon Absolute Lymph 2.07 X10 3/uL Normal 0.83-4.51 [facility] Comment on above: Order Comment: 109 Performed By: #### L 100.0100 ####[facility] [address] [place], [place], [id number] Absolute Neut 5.8 X10 3/uL Normal 2.0-7.7 [facility] Comment on above: Order Comment: 109 Performed By: #### L 100.0100 ####[facility] [address] [place], [address] Basophils/100 WBC (Bld) 0.6 % Normal 0-1 [facility] Comment on above: Order Comment: 109 Performed By: #### L 100.0100 ####[facility] [address], [address] Eosinophils/100 WBC (Bld) 0.7 % Normal 0-5 [facility] Comment on above: Order Comment: 109 Performed By: #### L 100.0100 ####[facility] [address] [place], [address] Erythrocyte distribution width (RBC) [Ratio] 12.8 % Normal 11.6-14.6 [facility] Comment on above: Order Comment: 109 Performed By: #### L 100.0100 ####[facility] [address] [place], [address] Hematocrit (Bld) [Volume fraction] 44.5 % Normal 40-54 [facility] Comment on above: Order Comment: 109 Performed By: #### L 100.0100 ####[facility] [address] [place], [address] Hemoglobin (Bld) [Mass/Vol] 14.9 g/dL Normal 13.0-16.5 [facility] Comment on above: Order Comment: 109 Performed By: #### L 100.0100 ####[facility] [address] [place], [address] IG% 0.400 Normal 0.0-0.9 [facility] Comment on above: Order Comment: 109 Result Comment: IG% - Immature Granulocytes (promyelocytes, myelocytes andmetamyelocytes) > 1% indicates that a LEFT SHIFT is Present. Performed By: #### L 100.0100 ####[facility] [address] [place], [address] Lymphocytes/100 WBC (Bld) 24.4 % Normal 19-41 [facility] Comment on above: Order Comment: 109 Performed By: #### L 100.0100 ####[facility] [address] [place], [address] MCH (RBC) [Entitic mass] 29.9 pg Normal 27.0-32.0 [facility] Comment on above: Order Comment: 109 Performed By: #### L 100.0100 ####[facility] [address] [place], [address] MCHC (RBC) [Mass/Vol] 33.5 g/dL Normal 32-36 [facility] Comment on above: Order Comment: 109 Performed By: #### L 100.0100 ####[facility] [address] [place], [address] MCV (RBC) [Entitic vol] 89.4 fL Normal 80-94 [facility] Comment on above: Order Comment: 109 Performed By: #### L 100.0100 ####[facility] [address] [place], [address] Monocytes/100 WBC (Bld) 5.4 % Normal 0-10 [facility] Comment on above: Order Comment: 109 Performed By: #### L 100.0100 ####[facility] [address] [place], [address] Neutrophils/100 WBC (Bld) 68.5 % Normal 47-70 [facility] Comment on above: Order Comment: 109 Performed By: #### L 100.0100 ####[facility] [address] [place], [address] Nucleated RBC (Bld) [#/Vol] 0 10*3/uL Normal 0-5 [facility] Comment on above: Order Comment: 109 Performed By: #### L 100.0100 ####[facility] [address] [place], [address] Platelet mean volume (Bld) [Entitic vol] 10.7 fL Normal 6.2-12.0 [facility] Comment on above: Order Comment: 109 Performed By: #### L 100.0100 ####[facility] [address] [place], [address] Platelets (Bld) [#/Vol] 189 10*3/uL Normal 150-450 [facility] Comment on above: Order Comment: 109 Performed By: #### L 100.0100 ####[facility] [address] [place], [address] RBC (Bld) [#/Vol] 4.98 10*6/uL Normal 4.6-6.2 [facility] Comment on above: Order Comment: 109 Performed By: #### L 100.0100 ####[facility] [address] [place], [address] RDW SD 41.7 fl Normal 35.1-43.9 [facility] Comment on above: Order Comment: 109 Performed By: #### L 100.0100 ####[facility] [address] [place], [address] WBC (Bld) [#/Vol] 8.5 10*3/uL Normal 4.4-11.0 [facility] Comment on above: Order Comment: 109 Performed By: #### L 100.0100 ####[facility] [address] [place], [address] Eosinophil percentageOrdered By: Renard Burgos on 09-02-2024 Eosinophils/100 WBC (Bld) 0.7 % 0-5 [facility] Erythrocyte distribution wid th ratioOrdered By: Renard Burgos on 09-02-2024 Erythrocyte distribution width (RBC) [Ratio] 12.8 % 11.6-14.6 [facility] Erythrocyte distribution wid th standard deviationOrdered By: Renard Burgos on 09-02-2024 Erythrocyte distribution width (RBC) [Ratio] 41.7 fl 35.1-43.9 [facility] Hematocrit Auto (Bld) [Volum e fraction]Ordered By: Renard Burgos on 09-02-2024 Hematocrit (Bld) [Volume fraction] 44.5 % 40-54 [facility] Hemoglobin measurementOrdere d By: Renard Burgos on 09-02-2024 Hemoglobin (Bld) [Mass/Vol] 14.9 g/dL 13.0-16.5 [facility] Immature granulocytes/100 WB C Auto (Bld)Ordered By: Renard Burgos on 09-02-2024 Immature granulocytes/100 WBC (Bld) 0.400 % 0.0-0.9 [facility] Comment on above: IG% - Immature Granu locytes (promyelocytes, myelocytes and metamyelocytes) > 1% indicates that a LEFT SHIFT is Present. MCV (mean corpuscular volume ) determinationOrdered By: Renard Burgos on 09-02-2024 MCV (RBC) [Entitic vol] 89.4 fL 80-94 [facility] Mean corpuscular hemoglobin (MCH) determinationOrdered By: Renard Burgos on 09-02-2024 MCH (RBC) [Entitic mass] 29.9 pg 27.0-32.0 [facility] Mean corpuscular hemoglobin concentration (MCHC) determinationOrdered By: Renard Burgos on 09-02-2024 MCHC (RBC) [Mass/Vol] 33.5 g/dL 32-36 [facility] Mean platelet volume determi nationOrdered By: Renard Burgos on 09-02-2024 Platelet mean volume (Bld) [Entitic vol] 10.7 fL 6.2-12.0 [facility] Monocyte percentageOrdered B y: Renard Burgos on 09-02-2024 Monocytes/100 WBC (Bld) 5.4 % 0-10 [facility] Neutrophil percentageOrdered By: Renard Burgos on 09-02-2024 Neutrophils/100 WBC (Bld) 68.5 % 47-70 [facility] Nucleated red blood cell per centageOrdered By: Renard Burgos on 09-02-2024 Nucleated RBC/100 WBC (Bld) [Ratio] 0 % 0-5 [facility] Platelet countOrdered By: Garrick Bhatt on 09-02-2024 Platelets (Bld) [#/Vol] 189 10*3/uL 150-450 [facility] RBC Auto (Bld) [#/Vol]Ordere d By: Renard Burgos on 09-02-2024 RBC (Bld) [#/Vol] 4.98 10*6/uL 4.6-6.2 [facility] White blood cell (WBC) count Ordered By: Renard Burgos on 09-02-2024 WBC (Bld) [#/Vol] 8.5 10*3/uL 4.4-11.0 [facility] Absolute lymphocyte countOrd ered By: Renard Burgos on 08-26-2024 Lymphocytes Auto (Unsp spec) [#/Vol] 2.17 10*3/uL 0.83-4.51 [facility] Absolute neutrophil countOrd ered By: Renard Burgos on 08-26-2024 Neutrophils (Bld) [#/Vol] 5.7 10*3/uL 2.0-7.7 [facility] Automated lymphocyte count a s percentage of total leukocytesOrdered By: Renard Burgos on 08-26-2024 Lymphocytes/100 WBC Auto (Unsp spec) 25.1 % 19-41 [facility] Basophil percentageOrdered B y: Renard Burgos on 08-26-2024 Basophils/100 WBC (Bld) 0.6 % 0-1 [facility] CBC W/Diff, Automatedon 07-31 Absolute Lymph 2.17 X10 3/uL Normal 0.83-4.51 [facility] Comment on above: Order Comment: 109-1 Performed By: #### L 100.0100 ####[facility] [address] [place], [place], [id number] Absolute Neut 5.7 X10 3/uL Normal 2.0-7.7 [facility] Comment on above: Order Comment: 109-1 Performed By: #### L 100.0100 ####[facility] [address] [place], [address] Basophils/100 WBC (Bld) 0.6 % Normal 0-1 [facility] Comment on above: Order Comment: 109-1 Performed By: #### L 100.0100 ####[facility] [address] [place], [address] Eosinophils/100 WBC (Bld) 0.8 % Normal 0-5 [facility] Comment on above: Order Comment: 109-1 Performed By: #### L 100.0100 ####[facility] [address] [place], [address] Erythrocyte distribution width (RBC) [Ratio] 12.7 % Normal 11.6-14.6 [facility] Comment on above: Order Comment: 109-1 Performed By: #### L 100.0100 ####[facility] [address] [place], [address] Hematocrit (Bld) [Volume fraction] 41.8 % Normal 40-54 [facility] Comment on above: Order Comment: 109-1 Performed By: #### L 100.0100 ####[facility] [address] [place], [address] Hemoglobin (Bld) [Mass/Vol] 13.8 g/dL Normal 13.0-16.5 [facility] Comment on above: Order Comment: 109-1 Performed By: #### L 100.0100 ####[facility] [address] [place], [address] IG% 0.200 Normal 0.0-0.9 [facility] Comment on above: Order Comment: 109-1 Result Comment: IG% - Immature Granulocytes (promyelocytes, myelocytes andmetamyelocytes) > 1% indicates that a LEFT SHIFT is Present. Performed By: #### L 100.0100 ####[facility] [address] [place], [address] Lymphocytes/100 WBC (Bld) 25.1 % Normal 19-41 [facility] Comment on above: Order Comment: 109-1 Performed By: #### L 100.0100 ####[facility] [address] [place], [address] MCH (RBC) [Entitic mass] 29.7 pg Normal 27.0-32.0 [facility] Comment on above: Order Comment: 109-1 Performed By: #### L 100.0100 ####[facility] [address], [address] MCHC (RBC) [Mass/Vol] 33.0 g/dL Normal 32-36 [facility] Comment on above: Order Comment: 109-1 Performed By: #### L 100.0100 ####[facility] [address] [place], [address] MCV (RBC) [Entitic vol] 90.1 fL Normal 80-94 [facility] Comment on above: Order Comment: 109-1 Performed By: #### L 100.0100 ####[facility] [address], [address] Monocytes/100 WBC (Bld) 7.4 % Normal 0-10 [facility] Comment on above: Order Comment: 109-1 Performed By: #### L 100.0100 ####[facility] [address], [address] Neutrophils/100 WBC (Bld) 65.9 % Normal 47-70 [facility] Comment on above: Order Comment: 109-1 Performed By: #### L 100.0100 ####[facility] [address] [place], [address] Nucleated RBC (Bld) [#/Vol] 0 10*3/uL Normal 0-5 [facility] Comment on above: Order Comment: 109-1 Performed By: #### L 100.0100 ####[facility] [address], [address] Platelet mean volume (Bld) [Entitic vol] 11.3 fL Normal 6.2-12.0 [facility] Comment on above: Order Comment: 109-1 Performed By: #### L 100.0100 ####[facility] [address] [place], [address] Platelets (Bld) [#/Vol] 196 10*3/uL Normal 150-450 [facility] Comment on above: Order Comment: 109-1 Performed By: #### L 100.0100 ####[facility] [address] [place], [address] RBC (Bld) [#/Vol] 4.64 10*6/uL Normal 4.6-6.2 [facility] Comment on above: Order Comment: 109-1 Performed By: #### L 100.0100 ####[facility] [address] [place], [address] RDW SD 41.3 fl Normal 35.1-43.9 [facility] Comment on above: Order Comment: 109-1 Performed By: #### L 100.0100 ####[facility] [address] [place], [address] WBC (Bld) [#/Vol] 8.6 10*3/uL Normal 4.4-11.0 [facility] Comment on above: Order Comment: 109-1 Performed By: #### L 100.0100 ####[facility] [address] [place], [address] Eosinophil percentageOrdered By: Renard Burgos on 08-26-2024 Eosinophils/100 WBC (Bld) 0.8 % 0-5 [facility] Erythrocyte distribution wid th ratioOrdered By: Renard Burgos on 08-26-2024 Erythrocyte distribution width (RBC) [Ratio] 12.7 % 11.6-14.6 [facility] Erythrocyte distribution wid th standard deviationOrdered By: Renard Burgos on 08-26-2024 Erythrocyte distribution width (RBC) [Ratio] 41.3 fl 35.1-43.9 [facility] Hematocrit Auto (Bld) [Volum e fraction]Ordered By: Renard Burgos on 08-26-2024 Hematocrit (Bld) [Volume fraction] 41.8 % 40-54 [facility] Hemoglobin measurementOrdere d By: Renard Burgos on 08-26-2024 Hemoglobin (Bld) [Mass/Vol] 13.8 g/dL 13.0-16.5 [facility] Immature granulocytes/100 WB C Auto (Bld)Ordered By: Renard Burgos on 08-26-2024 Immature granulocytes/100 WBC (Bld) 0.200 % 0.0-0.9 [facility] Comment on above: IG% - Immature Granu locytes (promyelocytes, myelocytes and metamyelocytes) > 1% indicates that a LEFT SHIFT is Present. MCV (mean corpuscular volume ) determinationOrdered By: Renard Burgos on 08-26-2024 MCV (RBC) [Entitic vol] 90.1 fL 80-94 [facility] Mean corpuscular hemoglobin (MCH) determinationOrdered By: Renard Burgos on 08-26-2024 MCH (RBC) [Entitic mass] 29.7 pg 27.0-32.0 [facility] Mean corpuscular hemoglobin concentration (MCHC) determinationOrdered By: Renard Burgos on 08-26-2024 MCHC (RBC) [Mass/Vol] 33.0 g/dL 32-36 [facility] Mean platelet volume determi nationOrdered By: Renard Burgos on 08-26-2024 Platelet mean volume (Bld) [Entitic vol] 11.3 fL 6.2-12.0 [facility] Monocyte percentageOrdered B y: Renard Burgos on 08-26-2024 Monocytes/100 WBC (Bld) 7.4 % 0-10 [facility] Neutrophil percentageOrdered By: Renard Burgos on 08-26-2024 Neutrophils/100 WBC (Bld) 65.9 % 47-70 [facility] Nucleated red blood cell per centageOrdered By: Renard Burgos on 08-26-2024 Nucleated RBC/100 WBC (Bld) [Ratio] 0 % 0-5 [facility] Platelet countOrdered By: Garrick Bhatt on 08-26-2024 Platelets (Bld) [#/Vol] 196 10*3/uL 150-450 [facility] RBC Auto (Bld) [#/Vol]Ordere d By: Renard Burgos on 08-26-2024 RBC (Bld) [#/Vol] 4.64 10*6/uL 4.6-6.2 [facility] White blood cell (WBC) count Ordered By: Renard Burgos on 08-26-2024 WBC (Bld) [#/Vol] 8.6 10*3/uL 4.4-11.0 [facility] Anion gap in Serum or Plasma Ordered By: Renard Burgos on 08-23-2024 Anion gap [Moles/Vol] 10 mmol/L 5-15 [facility] BUN/creatinine ratioOrdered By: Renard Burgos on 08-23-2024 Urea nitrogen/Creatinine [Mass ratio] 21.4 mg/mg High 10-20 [facility] Bilirubin, totalOrdered By: Renard Burgos on 08-23-2024 Bilirubin [Mass/Vol] 0.35 mg/dL 0.00-1.30 [facility] CBC-Complete Blood Cnt No Di ffon 08-23-2024 Erythrocyte distribution width (RBC) [Ratio] 12.7 % Normal 11.6-14.6 [facility] Comment on above: Order Comment: 109.1 Performed By: #### L 500.4100, L100.0500, L500.4050 ####[facility] [address] [place], [address] Hematocrit (Bld) [Volume fraction] 42.2 % Normal 40-54 [facility] Comment on above: Order Comment: 109.1 Performed By: #### L 500.4100, L100.0500, L500.4050 ####[facility] [address] [place], [address] Hemoglobin (Bld) [Mass/Vol] 14.0 g/dL Normal 13.0-16.5 [facility] Comment on above: Order Comment: 109.1 Performed By: #### L 500.4100, L100.0500, L500.4050 ####[facility] [address] [place], [address] MCH (RBC) [Entitic mass] 30.0 pg Normal 27.0-32.0 [facility] Comment on above: Order Comment: 109.1 Performed By: #### L 500.4100, L100.0500, L500.4050 ####[facility] [address] [place], [address] MCHC (RBC) [Mass/Vol] 33.2 g/dL Normal 32-36 [facility] Comment on above: Order Comment: 109.1 Performed By: #### L 500.4100, L100.0500, L500.4050 ####[facility] [address] [place], [address] MCV (RBC) [Entitic vol] 90.6 fL Normal 80-94 [facility] Comment on above: Order Comment: 109.1 Performed By: #### L 500.4100, L100.0500, L500.4050 ####[facility] [address] [place], [address] Platelet mean volume (Bld) [Entitic vol] 11.3 fL Normal 6.2-12.0 [facility] Comment on above: Order Comment: 109.1 Performed By: #### L 500.4100, L100.0500, L500.4050 ####[facility] [address] [place], [address] Platelets (Bld) [#/Vol] 184 10*3/uL Normal 150-450 [facility] Comment on above: Order Comment: 109.1 Performed By: #### L 500.4100, L100.0500, L500.4050 ####[facility] [address] [place], [address] RBC (Bld) [#/Vol] 4.66 10*6/uL Normal 4.6-6.2 [facility] Comment on above: Order Comment: 109.1 Performed By: #### L 500.4100, L100.0500, L500.4050 ####[facility] [address] [place], [address] RDW SD 41.8 fl Normal 35.1-43.9 [facility] Comment on above: Order Comment: 109.1 Performed By: #### L 500.4100, L100.0500, L500.4050 ####[facility] [address] [place], [address] WBC (Bld) [#/Vol] 8.6 10*3/uL Normal 4.4-11.0 [facility] Comment on above: Order Comment: 109.1 Performed By: #### L 500.4100, L100.0500, L500.4050 ####[facility] [address] [place], [address] Calculated very low density lipoprotein (VLDL) cholesterol measurementOrdered By: Renard Burgos on 08-23-2024 Calculated very low density lipoprotein (VLDL) cholesterol measurement 40 mg/dL 5-40 [facility] Carbon dioxide, total [Moles /volume] in Central venous bloodOrdered By: Renard Burgos on 08-23-2024 CO2 [Moles/Vol] 24.9 mmol/L 21.0-32.0 [facility] Chloride assayOrdered By: Garrick Bhatt on 08-23-2024 Chloride [Moles/Vol] 106 mmol/L 98-108 [facility] Comprehensive Metabolic Prof ilon 08-23-2024 Albumin [Mass/Vol] 3.4 g/dL Normal 3.4-4.8 [facility] Comment on above: Order Comment: 109.1 Performed By: #### L 500.4100, L100.0500, L500.4050 ####[facility] [address] [place], [address] Albumin/Globulin [Mass ratio] 1.4 {ratio} Normal 0.9-2.4 [facility] Comment on above: Order Comment: 109.1 Performed By: #### L 500.4100, L100.0500, L500.4050 ####[facility] [address] [place], [address] ALK PHOS 101 U/L Normal 40-129 [facility] Comment on above: Order Comment: 109.1 Performed By: #### L 500.4100, L100.0500, L500.4050 ####[facility] [address] [place], [address] ALT [Catalytic activity/Vol] 13 U/L Normal <=46 [facility] Comment on above: Order Comment: 109.1 Performed By: #### L 500.4100, L100.0500, L500.4050 ####[facility] [address] [place], [address] AST [Catalytic activity/Vol] 17 U/L Normal <=37 [facility] Comment on above: Order Comment: 109.1 Performed By: #### L 500.4100, L100.0500, L500.4050 ####[facility] [address] [place], [place], [address] Bilirubin [Mass/Vol] 0.35 mg/dL Normal 0.00-1.30 [facility] Comment on above: Order Comment: 109.1 Performed By: #### L 500.4100, L100.0500, L500.4050 ####[facility] [address] [place], [address] BUN/CRE 21.4 RATIO High 10-20 [facility] Comment on above: Order Comment: 109.1 Performed By: #### L 500.4100, L100.0500, L500.4050 ####[facility] [address] [place], [address] Calcium [Mass/Vol] 8.2 mg/dL Normal 7.6-11.0 [facility] Comment on above: Order Comment: 109.1 Performed By: #### L 500.4100, L100.0500, L500.4050 ####[facility] [address] [place], [address] Chloride [Moles/Vol] 106 mmol/L Normal 98-108 [facility] Comment on above: Order Comment: 109.1 Performed By: #### L 500.4100, L100.0500, L500.4050 ####[facility] [address] [place], [address] CO2 [Moles/Vol] 24.9 mmol/L Normal 21.0-32.0 [facility] Comment on above: Order Comment: 109.1 Performed By: #### L 500.4100, L100.0500, L500.4050 ####[facility] [address] [place], [address] Creatinine [Mass/Vol] 0.63 mg/dL Low 0.70-1.20 [facility] Comment on above: Order Comment: 109.1 Performed By: #### L 500.4100, L100.0500, L500.4050 ####[facility] [address] [place], [address] GAP 10 Normal 5-15 [facility] Comment on above: Order Comment: 109.1 Performed By: #### L 500.4100, L100.0500, L500.4050 ####[facility] [address] [place], [address] GFR/1.73 sq M.predicted among non-blacks MDRD (S/P/Bld) [Vol rate/Area] 104 mL/min/{1.73_m2} Normal >60 [facility] Comment on above: Order Comment: 109.1 Result Comment: mL/m in/1.73m2 CKD-EPI Creatinine Equation (2020) Performed By: #### L 500.4100, L100.0500, L500.4050 ####[facility] [address] [place], [address] Globulin (S) [Mass/Vol] 2.3 g/dL Normal 2.2-4.2 [facility] Comment on above: Order Comment: 109.1 Performed By: #### L 500.4100, L100.0500, L500.4050 ####[facility] [address] [place], [address] Glucose [Mass/Vol] 116 mg/dL High 70-99 [facility] Comment on above: Order Comment: 109.1 Performed By: #### L 500.4100, L100.0500, L500.4050 ####[facility] [address] [place], [address] Potassium [Moles/Vol] 3.8 mmol/L Normal 3.3-5.1 [facility] Comment on above: Order Comment: 109.1 Performed By: #### L 500.4100, L100.0500, L500.4050 ####[facility] [address] [place], [address] Sodium [Moles/Vol] 141 mmol/L Normal 133-145 [facility] Comment on above: Order Comment: 109.1 Performed By: #### L 500.4100, L100.0500, L500.4050 ####[facility] [address] [place], [address] T PROT 5.7 g/dL Low 5.9-8.4 [facility] Comment on above: Order Comment: 109.1 Performed By: #### L 500.4100, L100.0500, L500.4050 ####[facility] [address] [place], [place], [address] Urea nitrogen [Mass/Vol] 14 mg/dL Normal 4-19 [facility] Comment on above: Order Comment: 109.1 Performed By: #### L 500.4100, L100.0500, L500.4050 ####[facility] [address] [place], [address] Erythrocyte distribution wid th ratioOrdered By: Renard Burgos on 08-23-2024 Erythrocyte distribution width (RBC) [Ratio] 12.7 % 11.6-14.6 [facility] Erythrocyte distribution wid th standard deviationOrdered By: Renard Burgos on 08-23-2024 Erythrocyte distribution width (RBC) [Ratio] 41.8 fl 35.1-43.9 [facility] Glomerular filtration rate ( GFR) estimation/1.73 sq m using serum, plasma, or whole bOrdered By: Renard Burgos on 08-23-2024 GFR/1.73 sq M.predicted among non-blacks MDRD (S/P/Bld) [Vol rate/Area] 104 mL/min/{1.73_m2} >60 [facility] Comment on above: mL/min/1.73m2 CKD-EP I Creatinine Equation (2020) Hematocrit Auto (Bld) [Volum e fraction]Ordered By: Renard Burgos on 08-23-2024 Hematocrit (Bld) [Volume fraction] 42.2 % 40-54 [facility] Hemoglobin measurementOrdere d By: Renard Burgos on 08-23-2024 Hemoglobin (Bld) [Mass/Vol] 14.0 g/dL 13.0-16.5 [facility] LDL calc ser/plasOrdered By: Renard Burgos on 08-23-2024 Cholesterol in LDL [Mass/Vol] 62 mg/dL [facility] Comment on above: Ppklmgwinx=672-171 m g/dL & Higher Nhyf=013 mg/dL or greater Laboratory - Chemistry and C hemistry - challengeOrdered By: Renard Burgos on 08-23-2024 AST [Catalytic activity/Vol] 17 U/L <38 [facility] Lipid Profileon 08-23-2024 CHOL:HDL 5.32 Normal [facility] Comment on above: Order Comment: 109.1 Performed By: #### L 500.4100, L100.0500, L500.4050 ####[facility] [address] [place], [address] Cholesterol [Mass/Vol] 125 mg/dL Normal <=200 [facility] Comment on above: Order Comment: 109.1 Result Comment: Chol esterol level, Desirable <200 mg/dLBorderline high cholesterol 200-239 mg/dLHigh cholesterol >=240 mg/dLRecommendations of the NCEP Adult Treatment Panel for thefollowing risk-cutoff thresholds for the [place] Americ[facility] centerulation. Performed By: #### L 500.4100, L100.0500, L500.4050 ####[facility] [address] [place], [address] Cholesterol in HDL [Mass/Vol] 24 mg/dL Low [facility] Comment on above: Order Comment: 109.1 Result Comment: Lucy onal Cholesterol Education Program (NCEP) guidelines:<40 mg/dL: Low HDL-cholesterol (major risk factor for CHD)>= 60 mg/dL: High HDL-cholesterol (negative risk factor forCHD)HDL-cholesterol is affected by a number of factors, e.g.smoking, exercise, hormones, sex and age. Performed By: #### L 500.4100, L100.0500, L500.4050 ####[facility] [address] [place], [address] Cholesterol in LDL [Mass/Vol] 62 mg/dL Normal [facility] Comment on above: Order Comment: 109.1 Result Comment: Bord zwftbz=008-868 mg/dL Higher Vwvt=210 mg/dL or greater Performed By: #### L 500.4100, L100.0500, L500.4050 ####[facility] [address] [place], [address] Cholesterol in VLDL [Mass/Vol] 40 mg/dL Normal 5-40 [facility] Comment on above: Order Comment: 109.1 Performed By: #### L 500.4100, L100.0500, L500.4050 ####[facility] [address] [place], [place], [address] Triglyceride [Mass/Vol] 198 mg/dL Normal [facility] Comment on above: Order Comment: 109.1 Result Comment: The drugs N-Acetylcysteine and Metamizole may falselydepress this assay.Normal range: <150 mg/dLBorderline High: 150-199 mg/dLHigh: 200-499 mg/dLVery High: >500 mg/dL Performed By: #### L 500.4100, L100.0500, L500.4050 ####[facility] [address] [place], [place], [address] MCV (mean corpuscular volume ) determinationOrdered By: Renard Burgos on 08-23-2024 MCV (RBC) [Entitic vol] 90.6 fL 80-94 [facility] Mean corpuscular hemoglobin (MCH) determinationOrdered By: Renard Burgos on 08-23-2024 MCH (RBC) [Entitic mass] 30.0 pg 27.0-32.0 [facility] Mean corpuscular hemoglobin concentration (MCHC) determinationOrdered By: Renard Burgos on 08-23-2024 MCHC (RBC) [Mass/Vol] 33.2 g/dL 32-36 [facility] Mean platelet volume determi nationOrdered By: Renard Burgos on 08-23-2024 Platelet mean volume (Bld) [Entitic vol] 11.3 fL 6.2-12.0 [facility] Platelet countOrdered By: aGrrick Bhatt on 08-23-2024 Platelets (Bld) [#/Vol] 184 10*3/uL 150-450 [facility] Potassium measurement (mass/ volume)Ordered By: Renard Burgos on 08-23-2024 Potassium (Unsp spec) [Mass/Vol] 3.8 mmol/L 3.3-5.1 [facility] RBC Auto (Bld) [#/Vol]Ordere d By: Renard Burgos on 08-23-2024 RBC (Bld) [#/Vol] 4.66 10*6/uL 4.6-6.2 [facility] Screening total cholesterol/ high density lipoprotein (HDL) cholesterol ratioOrdered By: Renard Burgos on 08-23-2024 Cholesterol.total/Cecilia sterol in HDL [Mass ratio] 5.32 {ratio} [facility] Serum creatinine measurement (mass/volume)Ordered By: Renard Burgos on 08-23-2024 Creatinine [Mass/Vol] 0.63 mg/dL Low 0.70-1.20 [facility] Serum globulin measurementOr dered By: Renard Burgos on 08-23-2024 Globulin (S) [Mass/Vol] 2.3 g/dL 2.2-4.2 [facility] Serum glucose measurement (m ass/volume)Ordered By: Renard Burgos on 08-23-2024 Glucose [Mass/Vol] 116 mg/dL High 70-99 [facility] Serum or plasma alanine kay otransferase (ALT) measurementOrdered By: Renard Burgos on 08-23-2024 ALT [Catalytic activity/Vol] 13 U/L <47 [facility] Serum or plasma albumin gordy urement (mass/volume)Ordered By: Renard Burgos on 08-23-2024 Albumin [Mass/Vol] 3.4 g/dL 3.4-4.8 [facility] Serum or plasma albumin/glob ulin mass ratioOrdered By: Renard Burgos on 08-23-2024 Albumin/Globulin [Mass ratio] 1.4 {ratio} 0.9-2.4 [facility] Serum or plasma alkaline trace sphatase measurementOrdered By: Renard Burgos on 08-23-2024 ALP [Catalytic activity/Vol] 101 U/L 40-129 [facility] Serum or plasma calcium gordy urement (mass/volume)Ordered By: Renard Burgos on 08-23-2024 Calcium [Mass/Vol] 8.2 mg/dL 7.6-11.0 [facility] Serum or plasma cholesterol in HDL measurement (mass/volume)Ordered By: Renard Burgos on 08-23-2024 Cholesterol in HDL [Mass/Vol] 24 mg/dL Low >40 [facility] Comment on above: National Cholesterol Education Program (NCEP) guidelines:<40 mg/dL: Low HDL-cholesterol (major risk factor for CHD)>= 60 mg/dL: High HDL-cholesterol (negative risk factor for CHD)HDL-cholesterol is affected by a number of factors, e.g. smoking, exercise, hormones, sex and age. Serum or plasma cholesterol measurement (mass/volume)Ordered By: Renard Burgos on 08-23-2024 Cholesterol [Mass/Vol] 125 mg/dL <201 [facility] Comment on above: Cholesterol level, D esirable <200 mg/dLBorderline high cholesterol 200-239 mg/dLHigh cholesterol >=240 mg/dLRecommendations of the NCEP Adult Treatment Panel for the following risk-cutoff thresholds for the [place] population. Serum or plasma urea nitroge n measurement (mass/volume)Ordered By: Renard Burgos on 08-23-2024 Urea nitrogen [Mass/Vol] 14 mg/dL 4-19 [facility] Sodium levelOrdered By: Lamine Burgos on 08-23-2024 Sodium [Moles/Vol] 141 mmol/L 133-145 [facility] Total proteinOrdered By: Lyubov Burgos on 08-23-2024 Protein [Mass/Vol] 5.7 g/dL Low 5.9-8.4 [facility] Triglycerides measurementOrd ered By: Renard Burgos on 08-23-2024 Triglyceride [Mass/Vol] 198 mg/dL <199 [facility] Comment on above: The drugs N-Acetylcy steine and Metamizole may falsely depress this assay. Normal range: <150 mg/dLBorderline High: 150-199 mg/dLHigh: 200-499 mg/dLVery High: >500 mg/dL White blood cell (WBC) count Ordered By: Renard Burgos on 08-23-2024 WBC (Bld) [#/Vol] 8.6 10*3/uL 4.4-11.0 [facility] Absolute lymphocyte countOrd ered By: Renard Burgos on 04-21-2025 Lymphocytes Auto (Unsp spec) [#/Vol] 1.97 10*3/uL 0.83-4.51 [facility] Absolute neutrophil countOrd ered By: Renard Amezquitahola on 08-19-2024 Neutrophils (Bld) [#/Vol] 5.0 10*3/uL 2.0-7.7 [facility] Automated lymphocyte count a s percentage of total leukocytesOrdered By: Renard Burgos on 08-19-2024 Lymphocytes/100 WBC Auto (Unsp spec) 25.4 % 19-41 [facility] Basophil percentageOrdered B y: Renard Burgos on 08-19-2024 Basophils/100 WBC (Bld) 0.5 % 0-1 [facility] CBC W/Diff, Automatedon 07-31 Absolute Lymph 1.97 X10 3/uL Normal 0.83-4.51 [facility] Comment on above: Order Comment: 109 Performed By: #### L 100.0100 ####[facility] [address] [place], [address] Absolute Neut 5.0 X10 3/uL Normal 2.0-7.7 [facility] Comment on above: Order Comment: 109 Performed By: #### L 100.0100 ####[facility] [address] [place], [address] Basophils/100 WBC (Bld) 0.5 % Normal 0-1 [facility] Comment on above: Order Comment: 109 Performed By: #### L 100.0100 ####[facility] [address] [place], [address] Eosinophils/100 WBC (Bld) 1.0 % Normal 0-5 [facility] Comment on above: Order Comment: 109 Performed By: #### L 100.0100 ####[facility] [address] [place], [address] Erythrocyte distribution width (RBC) [Ratio] 12.7 % Normal 11.6-14.6 [facility] Comment on above: Order Comment: 109 Performed By: #### L 100.0100 ####[facility] [address] [place], [address] Hematocrit (Bld) [Volume fraction] 41.0 % Normal 40-54 [facility] Comment on above: Order Comment: 109 Performed By: #### L 100.0100 ####[facility] [address] [place], [address] Hemoglobin (Bld) [Mass/Vol] 13.6 g/dL Normal 13.0-16.5 [facility] Comment on above: Order Comment: 109 Performed By: #### L 100.0100 ####[facility] [address] [place], [address] IG% 0.400 Normal 0.0-0.9 [facility] Comment on above: Order Comment: 109 Result Comment: IG% - Immature Granulocytes (promyelocytes, myelocytes andmetamyelocytes) > 1% indicates that a LEFT SHIFT is Present. Performed By: #### L 100.0100 ####[facility] [address] [place], [address] Lymphocytes/100 WBC (Bld) 25.4 % Normal 19-41 [facility] Comment on above: Order Comment: 109 Performed By: #### L 100.0100 ####[facility] [address] [place], [address] MCH (RBC) [Entitic mass] 30.2 pg Normal 27.0-32.0 [facility] Comment on above: Order Comment: 109 Performed By: #### L 100.0100 ####[facility] [address] [place], [address] MCHC (RBC) [Mass/Vol] 33.2 g/dL Normal 32-36 [facility] Comment on above: Order Comment: 109 Performed By: #### L 100.0100 ####[facility] [address] [place], [address] MCV (RBC) [Entitic vol] 91.1 fL Normal 80-94 [facility] Comment on above: Order Comment: 109 Performed By: #### L 100.0100 ####[facility] [address] [place], [address] Monocytes/100 WBC (Bld) 8.2 % Normal 0-10 [facility] Comment on above: Order Comment: 109 Performed By: #### L 100.0100 ####[facility] [address] [place], [address] Neutrophils/100 WBC (Bld) 64.5 % Normal 47-70 [facility] Comment on above: Order Comment: 109 Performed By: #### L 100.0100 ####[facility] [address] [place], [address] Nucleated RBC (Bld) [#/Vol] 0 10*3/uL Normal 0-5 [facility] Comment on above: Order Comment: 109 Performed By: #### L 100.0100 ####[facility] [address] [place], [address] Platelet mean volume (Bld) [Entitic vol] 11.1 fL Normal 6.2-12.0 [facility] Comment on above: Order Comment: 109 Performed By: #### L 100.0100 ####[facility] [address] [place], [address] Platelets (Bld) [#/Vol] 207 10*3/uL Normal 150-450 [facility] Comment on above: Order Comment: 109 Performed By: #### L 100.0100 ####[facility] [address] [place], [address] RBC (Bld) [#/Vol] 4.50 10*6/uL Low 4.6-6.2 [facility] Comment on above: Order Comment: 109 Performed By: #### L 100.0100 ####[facility] [address] [place], [address] RDW SD 42.0 fl Normal 35.1-43.9 [facility] Comment on above: Order Comment: 109 Performed By: #### L 100.0100 ####[facility] [address] [place], [address] WBC (Bld) [#/Vol] 7.8 10*3/uL Normal 4.4-11.0 [facility] Comment on above: Order Comment: 109 Performed By: #### L 100.0100 ####[facility] [address] [place], [address] Eosinophil percentageOrdered By: Renard Burgos on 08-19-2024 Eosinophils/100 WBC (Bld) 1.0 % 0-5 [facility] Erythrocyte distribution wid th ratioOrdered By: Renard Burgos on 08-19-2024 Erythrocyte distribution width (RBC) [Ratio] 12.7 % 11.6-14.6 [facility] Erythrocyte distribution wid th standard deviationOrdered By: Renard Burgos on 08-19-2024 Erythrocyte distribution width (RBC) [Ratio] 42.0 fl 35.1-43.9 [facility] Hematocrit Auto (Bld) [Volum e fraction]Ordered By: Reanrd Burgos on 08-19-2024 Hematocrit (Bld) [Volume fraction] 41.0 % 40-54 [facility] Hemoglobin measurementOrdere d By: Renard Burgos on 08-19-2024 Hemoglobin (Bld) [Mass/Vol] 13.6 g/dL 13.0-16.5 [facility] Immature granulocytes/100 WB C Auto (Bld)Ordered By: Renard Burgos on 08-19-2024 Immature granulocytes/100 WBC (Bld) 0.400 % 0.0-0.9 [facility] Comment on above: IG% - Immature Granu locytes (promyelocytes, myelocytes and metamyelocytes) > 1% indicates that a LEFT SHIFT is Present. MCV (mean corpuscular volume ) determinationOrdered By: Renard Burgos on 08-19-2024 MCV (RBC) [Entitic vol] 91.1 fL 80-94 [facility] Mean corpuscular hemoglobin (MCH) determinationOrdered By: Renard Burgos on 08-19-2024 MCH (RBC) [Entitic mass] 30.2 pg 27.0-32.0 [facility] Mean corpuscular hemoglobin concentration (MCHC) determinationOrdered By: Renard Burgos on 08-19-2024 MCHC (RBC) [Mass/Vol] 33.2 g/dL 32-36 [facility] Mean platelet volume determi nationOrdered By: Renard Burgos on 08-19-2024 Platelet mean volume (Bld) [Entitic vol] 11.1 fL 6.2-12.0 [facility] Monocyte percentageOrdered B y: Renard Burgos on 08-19-2024 Monocytes/100 WBC (Bld) 8.2 % 0-10 [facility] Neutrophil percentageOrdered By: Renard Burgos on 08-19-2024 Neutrophils/100 WBC (Bld) 64.5 % 47-70 [facility] Nucleated red blood cell per centageOrdered By: Renard Burgos on 08-19-2024 Nucleated RBC/100 WBC (Bld) [Ratio] 0 % 0-5 [facility] Platelet countOrdered By: Garrick Bhatt on 08-19-2024 Platelets (Bld) [#/Vol] 207 10*3/uL 150-450 [facility] RBC Auto (Bld) [#/Vol]Ordere d By: Renard Burgos on 08-19-2024 RBC (Bld) [#/Vol] 4.50 10*6/uL Low 4.6-6.2 [facility] White blood cell (WBC) count Ordered By: Renard Burgos on 08-19-2024 WBC (Bld) [#/Vol] 7.8 10*3/uL 4.4-11.0 [facility] Absolute lymphocyte countOrd ered By: Renard Burgos on 08-12-2024 Lymphocytes Auto (Unsp spec) [#/Vol] 2.09 10*3/uL 0.83-4.51 [facility] Absolute neutrophil countOrd ered By: Renard Burgos on 08-12-2024 Neutrophils (Bld) [#/Vol] 5.0 10*3/uL 2.0-7.7 [facility] Automated lymphocyte count a s percentage of total leukocytesOrdered By: Renard Burgos on 08-12-2024 Lymphocytes/100 WBC Auto (Unsp spec) 27.0 % 19-41 [facility] Basophil percentageOrdered B y: Renard Burgos on 08-12-2024 Basophils/100 WBC (Bld) 0.5 % 0-1 [facility] CBC W/Diff, Automatedon 07-30-2024 Absolute Lymph 2.09 X10 3/uL Normal 0.83-4.51 [facility] Comment on above: Order Comment: 109.1 Performed By: #### L 100.0100 ####[facility] [address] [place], [address] Absolute Neut 5.0 X10 3/uL Normal 2.0-7.7 [facility] Comment on above: Order Comment: 109.1 Performed By: #### L 100.0100 ####[facility] [address] [place], [address] Basophils/100 WBC (Bld) 0.5 % Normal 0-1 [facility] Comment on above: Order Comment: 109.1 Performed By: #### L 100.0100 ####[facility] [address] [place], [address] Eosinophils/100 WBC (Bld) 0.9 % Normal 0-5 [facility] Comment on above: Order Comment: 109.1 Performed By: #### L 100.0100 ####[facility] [address] [place], [address] Erythrocyte distribution width (RBC) [Ratio] 12.7 % Normal 11.6-14.6 [facility] Comment on above: Order Comment: 109.1 Performed By: #### L 100.0100 ####[facility] [address] [place], [address] Hematocrit (Bld) [Volume fraction] 41.9 % Normal 40-54 [facility] Comment on above: Order Comment: 109.1 Performed By: #### L 100.0100 ####[facility] [address] [place], [address] Hemoglobin (Bld) [Mass/Vol] 14.1 g/dL Normal 13.0-16.5 [facility] Comment on above: Order Comment: 109.1 Performed By: #### L 100.0100 ####[facility] [address] [place], [address] IG% 0.300 Normal 0.0-0.9 [facility] Comment on above: Order Comment: 109.1 Result Comment: IG% - Immature Granulocytes (promyelocytes, myelocytes andmetamyelocytes) > 1% indicates that a LEFT SHIFT is Present. Performed By: #### L 100.0100 ####[facility] [address] [place], [address] Lymphocytes/100 WBC (Bld) 27.0 % Normal 19-41 [facility] Comment on above: Order Comment: 109.1 Performed By: #### L 100.0100 ####[facility] [address] [place], [address] MCH (RBC) [Entitic mass] 30.3 pg Normal 27.0-32.0 [facility] Comment on above: Order Comment: 109.1 Performed By: #### L 100.0100 ####[facility] [address] [place], [address] MCHC (RBC) [Mass/Vol] 33.7 g/dL Normal 32-36 [facility] Comment on above: Order Comment: 109.1 Performed By: #### L 100.0100 ####[facility] [address], [address] MCV (RBC) [Entitic vol] 90.1 fL Normal 80-94 [facility] Comment on above: Order Comment: 109.1 Performed By: #### L 100.0100 ####[facility] [address] [place], [address] Monocytes/100 WBC (Bld) 7.1 % Normal 0-10 [facility] Comment on above: Order Comment: 109.1 Performed By: #### L 100.0100 ####[facility] [address] [place], [address] Neutrophils/100 WBC (Bld) 64.2 % Normal 47-70 [facility] Comment on above: Order Comment: 109.1 Performed By: #### L 100.0100 ####[facility] [address] [place], [address] Nucleated RBC (Bld) [#/Vol] 0 10*3/uL Normal 0-5 [facility] Comment on above: Order Comment: 109.1 Performed By: #### L 100.0100 ####[facility] [address] [place], [address] Platelet mean volume (Bld) [Entitic vol] 11.2 fL Normal 6.2-12.0 [facility] Comment on above: Order Comment: 109.1 Performed By: #### L 100.0100 ####[facility] [address] [place], [address] Platelets (Bld) [#/Vol] 188 10*3/uL Normal 150-450 [facility] Comment on above: Order Comment: 109.1 Performed By: #### L 100.0100 ####[facility] [address] [place], [address] RBC (Bld) [#/Vol] 4.65 10*6/uL Normal 4.6-6.2 [facility] Comment on above: Order Comment: 109.1 Performed By: #### L 100.0100 ####[facility] [address] [place], [address] RDW SD 41.6 fl Normal 35.1-43.9 [facility] Comment on above: Order Comment: 109.1 Performed By: #### L 100.0100 ####[facility] [facility] [address] [place], [address] WBC (Bld) [#/Vol] 7.8 10*3/uL Normal 4.4-11.0 [facility] Comment on above: Order Comment: 109.1 Performed By: #### L 100.0100 ####[facility] [address] [place], [address] Eosinophil percentageOrdered By: Renard Burgos on 08-12-2024 Eosinophils/100 WBC (Bld) 0.9 % 0-5 [facility] Erythrocyte distribution wid th (RBC) [Ratio]Ordered By: Renard Burgos on 08-12-2024 Erythrocyte distribution width (RBC) [Entitic vol] 41.6 fL 35.1-43.9 [facility] Erythrocyte distribution wid th ratioOrdered By: Renard Burgos on 08-12-2024 Erythrocyte distribution width (RBC) [Ratio] 12.7 % 11.6-14.6 [facility] Erythrocyte distribution wid th standard deviationOrdered By: Renard Burgos on 08-12-2024 Erythrocyte distribution width (RBC) [Ratio] 41.6 fl 35.1-43.9 [facility] Hematocrit Auto (Bld) [Volum e fraction]Ordered By: Renard Burgos on 08-12-2024 Hematocrit (Bld) [Volume fraction] 41.9 % 40-54 [facility] Hemoglobin measurementOrdere d By: Renard Burgos on 08-12-2024 Hemoglobin (Bld) [Mass/Vol] 14.1 g/dL 13.0-16.5 [facility] Immature granulocytes/100 WB C Auto (Bld)Ordered By: Renard Burgos on 08-12-2024 Immature granulocytes/100 WBC (Bld) 0.300 % 0.0-0.9 [facility] Comment on above: IG% - Immature Granu locytes (promyelocytes, myelocytes and metamyelocytes) > 1% indicates that a LEFT SHIFT is Present. Lymphocytes Auto (Unsp spec) [#/Vol]Ordered By: Renard Burgos on 08-12-2024 Lymphocytes (Bld) [#/Vol] 2.09 10*3/uL 0.83-4.51 [facility] Lymphocytes/100 WBC Auto (Un sp spec)Ordered By: Renard Burgos on 08-12-2024 Lymphocytes/100 WBC (Bld) 27.0 % 19-41 [facility] MCV (mean corpuscular volume ) determinationOrdered By: Renard Burgos on 08-12-2024 MCV (RBC) [Entitic vol] 90.1 fL 80-94 [facility] Mean corpuscular hemoglobin (MCH) determinationOrdered By: Renard Burgos on 08-12-2024 MCH (RBC) [Entitic mass] 30.3 pg 27.0-32.0 [facility] Mean corpuscular hemoglobin concentration (MCHC) determinationOrdered By: Renard Burgos on 08-12-2024 MCHC (RBC) [Mass/Vol] 33.7 g/dL 32-36 [facility] Mean platelet volume determi nationOrdered By: Renard Burgos on 08-12-2024 Platelet mean volume (Bld) [Entitic vol] 11.2 fL 6.2-12.0 [facility] Monocyte percentageOrdered B y: Renard Burgos on 08-12-2024 Monocytes/100 WBC (Bld) 7.1 % 0-10 [facility] Neutrophil percentageOrdered By: Renard Burgos on 08-12-2024 Neutrophils/100 WBC (Bld) 64.2 % 47-70 [facility] Nucleated red blood cell per centageOrdered By: Renard Burgos on 08-12-2024 Nucleated RBC/100 WBC (Bld) [Ratio] 0 % 0-5 [facility] Platelet countOrdered By: Garrick Bhatt on 08-12-2024 Platelets (Bld) [#/Vol] 188 10*3/uL 150-450 [facility] RBC Auto (Bld) [#/Vol]Ordere d By: Renard Burgos on 08-12-2024 RBC (Bld) [#/Vol] 4.65 10*6/uL 4.6-6.2 [facility] White blood cell (WBC) count Ordered By: Renard Burgos on 08-12-2024 WBC (Bld) [#/Vol] 7.8 10*3/uL 4.4-11.0 [facility] Absolute lymphocyte countOrd ered By: Renard Burgos on 08-05-2024 Lymphocytes Auto (Unsp spec) [#/Vol] 2.31 10*3/uL 0.83-4.51 [facility] Absolute neutrophil countOrd ered By: Renard Burgos on 08-05-2024 Neutrophils (Bld) [#/Vol] 5.4 10*3/uL 2.0-7.7 [facility] Automated lymphocyte count a s percentage of total leukocytesOrdered By: Renard Burgos on 08-05-2024 Lymphocytes/100 WBC Auto (Unsp spec) 26.9 % 19-41 [facility] Basophil percentageOrdered B y: Renard Burgos on 08-05-2024 Basophils/100 WBC (Bld) 0.6 % 0-1 [facility] CBC W/Diff, Automatedon 04- Absolute Lymph 2.31 X10 3/uL Normal 0.83-4.51 [facility] Comment on above: Order Comment: 109.1 Performed By: #### L 100.0100 ####[facility] [address] [place], [address] Absolute Neut 5.4 X10 3/uL Normal 2.0-7.7 [facility] Comment on above: Order Comment: 109.1 Performed By: #### L 100.0100 ####[facility] [address] [place], [address] Basophils/100 WBC (Bld) 0.6 % Normal 0-1 [facility] Comment on above: Order Comment: 109.1 Performed By: #### L 100.0100 ####[facility] [address] [place], [address] Eosinophils/100 WBC (Bld) 0.8 % Normal 0-5 [facility] Comment on above: Order Comment: 109.1 Performed By: #### L 100.0100 ####[facility] [address] [place], [address] Erythrocyte distribution width (RBC) [Ratio] 12.7 % Normal 11.6-14.6 [facility] Comment on above: Order Comment: 109.1 Performed By: #### L 100.0100 ####[facility] [address] [place], [address] Hematocrit (Bld) [Volume fraction] 41.6 % Normal 40-54 [facility] Comment on above: Order Comment: 109.1 Performed By: #### L 100.0100 ####[facility] [address] [place], [address] Hemoglobin (Bld) [Mass/Vol] 13.7 g/dL Normal 13.0-16.5 [facility] Comment on above: Order Comment: 109.1 Performed By: #### L 100.0100 ####[facility] [address] [place], [address] IG% 0.300 Normal 0.0-0.9 [facility] Comment on above: Order Comment: 109.1 Result Comment: IG% - Immature Granulocytes (promyelocytes, myelocytes andmetamyelocytes) > 1% indicates that a LEFT SHIFT is Present. Performed By: #### L 100.0100 ####[facility] [address], [address] Lymphocytes/100 WBC (Bld) 26.9 % Normal 19-41 [facility] Comment on above: Order Comment: 109.1 Performed By: #### L 100.0100 ####[facility] [address] [place], [address] MCH (RBC) [Entitic mass] 30.1 pg Normal 27.0-32.0 [facility] Comment on above: Order Comment: 109.1 Performed By: #### L 100.0100 ####[facility] [address] [place], [address] MCHC (RBC) [Mass/Vol] 32.9 g/dL Normal 32-36 [facility] Comment on above: Order Comment: 109.1 Performed By: #### L 100.0100 ####[facility] [address] [place], [address] MCV (RBC) [Entitic vol] 91.4 fL Normal 80-94 [facility] Comment on above: Order Comment: 109.1 Performed By: #### L 100.0100 ####[facility] [address] [place], [address] Monocytes/100 WBC (Bld) 8.3 % Normal 0-10 [facility] Comment on above: Order Comment: 109.1 Performed By: #### L 100.0100 ####[facility] [address] [place], [address] Neutrophils/100 WBC (Bld) 63.1 % Normal 47-70 [facility] Comment on above: Order Comment: 109.1 Performed By: #### L 100.0100 ####[facility] [address] [place], [address] Nucleated RBC (Bld) [#/Vol] 0 10*3/uL Normal 0-5 [facility] Comment on above: Order Comment: 109.1 Performed By: #### L 100.0100 ####[facility] [address] [place], [address] Platelet mean volume (Bld) [Entitic vol] 11.1 fL Normal 6.2-12.0 [facility] Comment on above: Order Comment: 109.1 Performed By: #### L 100.0100 ####[facility] [address] [place], [address] Platelets (Bld) [#/Vol] 199 10*3/uL Normal 150-450 [facility] Comment on above: Order Comment: 109.1 Performed By: #### L 100.0100 ####[facility] [address] [place], [address] RBC (Bld) [#/Vol] 4.55 10*6/uL Low 4.6-6.2 [facility] Comment on above: Order Comment: 109.1 Performed By: #### L 100.0100 ####[facility] [address] [place], [address] RDW SD 42.5 fl Normal 35.1-43.9 [facility] Comment on above: Order Comment: 109.1 Performed By: #### L 100.0100 ####[facility] [address] [place], [address] WBC (Bld) [#/Vol] 8.6 10*3/uL Normal 4.4-11.0 [facility] Comment on above: Order Comment: 109.1 Performed By: #### L 100.0100 ####[facility] [address] [place], [address] Eosinophil percentageOrdered By: Renard Burgos on 08-05-2024 Eosinophils/100 WBC (Bld) 0.8 % 0-5 [facility] Erythrocyte distribution wid th (RBC) [Ratio]Ordered By: Renard Burgos on 08-05-2024 Erythrocyte distribution width (RBC) [Entitic vol] 42.5 fL 35.1-43.9 [facility] Erythrocyte distribution wid th ratioOrdered By: Renard Burgos on 08-05-2024 Erythrocyte distribution width (RBC) [Ratio] 12.7 % 11.6-14.6 [facility] Erythrocyte distribution wid th standard deviationOrdered By: Renard Burgos on 08-05-2024 Erythrocyte distribution width (RBC) [Ratio] 42.5 fl 35.1-43.9 [facility] Hematocrit Auto (Bld) [Volum e fraction]Ordered By: Renard Burgos on 08-05-2024 Hematocrit (Bld) [Volume fraction] 41.6 % 40-54 [facility] Hemoglobin measurementOrdere d By: Renard Burgos on 08-05-2024 Hemoglobin (Bld) [Mass/Vol] 13.7 g/dL 13.0-16.5 [facility] Immature granulocytes/100 WB C Auto (Bld)Ordered By: Renard Burgos on 08-05-2024 Immature granulocytes/100 WBC (Bld) 0.300 % 0.0-0.9 [facility] Comment on above: IG% - Immature Granu locytes (promyelocytes, myelocytes and metamyelocytes) > 1% indicates that a LEFT SHIFT is Present. Lymphocytes Auto (Unsp spec) [#/Vol]Ordered By: Renard Burgos on 08-05-2024 Lymphocytes (Bld) [#/Vol] 2.31 10*3/uL 0.83-4.51 [facility] Lymphocytes/100 WBC Auto (Un sp spec)Ordered By: Renard Burgos on 08-05-2024 Lymphocytes/100 WBC (Bld) 26.9 % 19-41 [facility] MCV (mean corpuscular volume ) determinationOrdered By: Renard Burgos on 08-05-2024 MCV (RBC) [Entitic vol] 91.4 fL 80-94 [facility] Mean corpuscular hemoglobin (MCH) determinationOrdered By: Renard Burgos on 08-05-2024 MCH (RBC) [Entitic mass] 30.1 pg 27.0-32.0 [facility] Mean corpuscular hemoglobin concentration (MCHC) determinationOrdered By: Renard Burgos on 08-05-2024 MCHC (RBC) [Mass/Vol] 32.9 g/dL 32-36 [facility] Mean platelet volume determi nationOrdered By: Renard Burgos on 08-05-2024 Platelet mean volume (Bld) [Entitic vol] 11.1 fL 6.2-12.0 [facility] Monocyte percentageOrdered B y: Renard Burgos on 08-05-2024 Monocytes/100 WBC (Bld) 8.3 % 0-10 [facility] Neutrophil percentageOrdered By: Renard Burgos on 08-05-2024 Neutrophils/100 WBC (Bld) 63.1 % 47-70 [facility] Nucleated red blood cell per centageOrdered By: Renard Burgos on 08-05-2024 Nucleated RBC/100 WBC (Bld) [Ratio] 0 % 0-5 [facility] Platelet countOrdered By: Garrick Bhatt on 08-05-2024 Platelets (Bld) [#/Vol] 199 10*3/uL 150-450 [facility] RBC Auto (Bld) [#/Vol]Ordere d By: Renard Burgos on 08-05-2024 RBC (Bld) [#/Vol] 4.55 10*6/uL Low 4.6-6.2 [facility] White blood cell (WBC) count Ordered By: Renard Burgos on 08-05-2024 WBC (Bld) [#/Vol] 8.6 10*3/uL 4.4-11.0 [facility] Absolute lymphocyte countOrd ered By: Renard Burgos on 07-29-2024 Lymphocytes Auto (Unsp spec) [#/Vol] 1.93 10*3/uL 0.83-4.51 [facility] Absolute neutrophil countOrd ered By: Renard Burgos on 07-29-2024 Neutrophils (Bld) [#/Vol] 6.8 10*3/uL 2.0-7.7 [facility] Automated lymphocyte count a s percentage of total leukocytesOrdered By: Renard Burgos on 07-29-2024 Lymphocytes/100 WBC Auto (Unsp spec) 20.2 % 19-41 [facility] Basophil percentageOrdered B y: Renard Burgos on 07-29-2024 Basophils/100 WBC (Bld) 0.5 % 0-1 [facility] CBC W/Diff, Automatedon 07-01 Absolute Lymph 1.93 X10 3/uL Normal 0.83-4.51 [facility] Comment on above: Order Comment: 109-1 Performed By: #### L 100.0100 ####[facility] [address] [place], [address] Absolute Neut 6.8 X10 3/uL Normal 2.0-7.7 [facility] Comment on above: Order Comment: 109-1 Performed By: #### L 100.0100 ####[facility] [address] [place], [address] Basophils/100 WBC (Bld) 0.5 % Normal 0-1 [facility] Comment on above: Order Comment: 109-1 Performed By: #### L 100.0100 ####[facility] [address] [place], [address] Eosinophils/100 WBC (Bld) 0.7 % Normal 0-5 [facility] Comment on above: Order Comment: 109-1 Performed By: #### L 100.0100 ####[facility] [address] [place], [address] Erythrocyte distribution width (RBC) [Ratio] 12.8 % Normal 11.6-14.6 [facility] Comment on above: Order Comment: 109-1 Performed By: #### L 100.0100 ####[facility] [address] [place], [address] Hematocrit (Bld) [Volume fraction] 40.7 % Normal 40-54 [facility] Comment on above: Order Comment: 109-1 Performed By: #### L 100.0100 ####[facility] [address], [address] Hemoglobin (Bld) [Mass/Vol] 13.5 g/dL Normal 13.0-16.5 [facility] Comment on above: Order Comment: 109-1 Performed By: #### L 100.0100 ####[facility] [address] [place], [address] IG% 0.400 Normal 0.0-0.9 [facility] Comment on above: Order Comment: 109-1 Result Comment: IG% - Immature Granulocytes (promyelocytes, myelocytes andmetamyelocytes) > 1% indicates that a LEFT SHIFT is Present. Performed By: #### L 100.0100 ####[facility] [address] [place], [address] Lymphocytes/100 WBC (Bld) 20.2 % Normal 19-41 [facility] Comment on above: Order Comment: 109-1 Performed By: #### L 100.0100 ####[facility] [address] [place], [address] MCH (RBC) [Entitic mass] 29.9 pg Normal 27.0-32.0 [facility] Comment on above: Order Comment: 109-1 Performed By: #### L 100.0100 ####[facility] [address] [place], [address] MCHC (RBC) [Mass/Vol] 33.2 g/dL Normal 32-36 [facility] Comment on above: Order Comment: 109-1 Performed By: #### L 100.0100 ####[facility] [address] [place], [address] MCV (RBC) [Entitic vol] 90.0 fL Normal 80-94 [facility] Comment on above: Order Comment: 109-1 Performed By: #### L 100.0100 ####[facility] [address] [place], [address] Monocytes/100 WBC (Bld) 7.1 % Normal 0-10 [facility] Comment on above: Order Comment: 109-1 Performed By: #### L 100.0100 ####[facility] [address] [place], [address] Neutrophils/100 WBC (Bld) 71.1 % High 47-70 [facility] Comment on above: Order Comment: 109-1 Performed By: #### L 100.0100 ####[facility] [address] [place], [address] Nucleated RBC (Bld) [#/Vol] 0 10*3/uL Normal 0-5 [facility] Comment on above: Order Comment: 109-1 Performed By: #### L 100.0100 ####[facility] [address] [place], [address] Platelet mean volume (Bld) [Entitic vol] 11.2 fL Normal 6.2-12.0 [facility] Comment on above: Order Comment: 109-1 Performed By: #### L 100.0100 ####[facility] [address] [place], [address] Platelets (Bld) [#/Vol] 218 10*3/uL Normal 150-450 [facility] Comment on above: Order Comment: 109-1 Performed By: #### L 100.0100 ####[facility] [address] [place], [address] RBC (Bld) [#/Vol] 4.52 10*6/uL Low 4.6-6.2 [facility] Comment on above: Order Comment: 109-1 Performed By: #### L 100.0100 ####[facility] [address] [place], [address] RDW SD 41.9 fl Normal 35.1-43.9 [facility] Comment on above: Order Comment: 109-1 Performed By: #### L 100.0100 ####[facility] [address] [place], [address] WBC (Bld) [#/Vol] 9.6 10*3/uL Normal 4.4-11.0 [facility] Comment on above: Order Comment: 109-1 Performed By: #### L 100.0100 ####[facility] [address] [place], [address] Eosinophil percentageOrdered By: Renard Burgos on 07-29-2024 Eosinophils/100 WBC (Bld) 0.7 % 0-5 [facility] Erythrocyte distribution wid th ratioOrdered By: Renard Burgos on 07-29-2024 Erythrocyte distribution width (RBC) [Ratio] 12.8 % 11.6-14.6 [facility] Erythrocyte distribution wid th standard deviationOrdered By: Renard Burgos on 07-29-2024 Erythrocyte distribution width (RBC) [Entitic vol] 41.9 fL 35.1-43.9 [facility] Erythrocyte distribution width (RBC) [Ratio] 41.9 fl 35.1-43.9 [facility] Hematocrit Auto (Bld) [Volum e fraction]Ordered By: Renard Burgos on 07-29-2024 Hematocrit (Bld) [Volume fraction] 40.7 % 40-54 [facility] Hemoglobin measurementOrdere d By: Renard Burgos on 07-29-2024 Hemoglobin (Bld) [Mass/Vol] 13.5 g/dL 13.0-16.5 [facility] Immature granulocytes/100 WB C Auto (Bld)Ordered By: Renard Burgos on 07-29-2024 Immature granulocytes/100 WBC (Bld) 0.400 % 0.0-0.9 [facility] Comment on above: IG% - Immature Granu locytes (promyelocytes, myelocytes and metamyelocytes) > 1% indicates that a LEFT SHIFT is Present. Lymphocytes Auto (Unsp spec) [#/Vol]Ordered By: Renard Burgos on 07-29-2024 Lymphocytes (Bld) [#/Vol] 1.93 10*3/uL 0.83-4.51 [facility] Lymphocytes/100 WBC Auto (Un sp spec)Ordered By: Renard Burgos on 07-29-2024 Lymphocytes/100 WBC (Bld) 20.2 % 19-41 [facility] MCV (mean corpuscular volume ) determinationOrdered By: Renard Burgos on 07-29-2024 MCV (RBC) [Entitic vol] 90.0 fL 80-94 [facility] Mean corpuscular hemoglobin (MCH) determinationOrdered By: Renard Burgos on 07-29-2024 MCH (RBC) [Entitic mass] 29.9 pg 27.0-32.0 [facility] Mean corpuscular hemoglobin concentration (MCHC) determinationOrdered By: Renard Burgos on 07-29-2024 MCHC (RBC) [Mass/Vol] 33.2 g/dL 32-36 [facility] Mean platelet volume determi nationOrdered By: Renard Burgos on 07-29-2024 Platelet mean volume (Bld) [Entitic vol] 11.2 fL 6.2-12.0 [facility] Monocyte percentageOrdered B y: Renard Burgos on 07-29-2024 Monocytes/100 WBC (Bld) 7.1 % 0-10 [facility] Neutrophil percentageOrdered By: Renard Burgos on 07-29-2024 Neutrophils/100 WBC (Bld) 71.1 % High 47-70 [facility] Nucleated red blood cell per centageOrdered By: Renard Burgos on 07-29-2024 Nucleated RBC/100 WBC (Bld) [Ratio] 0 % 0-5 [facility] Platelet countOrdered By: Garrick Bhatt on 07-29-2024 Platelets (Bld) [#/Vol] 218 10*3/uL 150-450 [facility] RBC Auto (Bld) [#/Vol]Ordere d By: Renard Burgos on 07-29-2024 RBC (Bld) [#/Vol] 4.52 10*6/uL Low 4.6-6.2 [facility] White blood cell (WBC) count Ordered By: Renard Burgos on 07-29-2024 WBC (Bld) [#/Vol] 9.6 10*3/uL 4.4-11.0 [facility] Absolute lymphocyte countOrd ered By: Renard Burgos on 07-22-2024 Lymphocytes Auto (Unsp spec) [#/Vol] 1.90 10*3/uL 0.83-4.51 [facility] Absolute neutrophil countOrd ered By: Renard Burgos on 07-22-2024 Neutrophils (Bld) [#/Vol] 5.2 10*3/uL 2.0-7.7 [facility] Automated lymphocyte count a s percentage of total leukocytesOrdered By: Renard Burgos on 07-22-2024 Lymphocytes/100 WBC Auto (Unsp spec) 23.9 % 19-41 [facility] Basophil percentageOrdered B y: Renard Burgos on 07-22-2024 Basophils/100 WBC (Bld) 0.6 % 0-1 [facility] CBC W/Diff, Automatedon 06-30 Absolute Lymph 1.90 X10 3/uL Normal 0.83-4.51 [facility] Comment on above: Order Comment: 109.1 Performed By: #### L 100.0100 ####[facility] [address] [place], [address] Absolute Neut 5.2 X10 3/uL Normal 2.0-7.7 [facility] Comment on above: Order Comment: 109.1 Performed By: #### L 100.0100 ####[facility] [address] [place], [address] Basophils/100 WBC (Bld) 0.6 % Normal 0-1 [facility] Comment on above: Order Comment: 109.1 Performed By: #### L 100.0100 ####[facility] [address] [place], [address] Eosinophils/100 WBC (Bld) 0.9 % Normal 0-5 [facility] Comment on above: Order Comment: 109.1 Performed By: #### L 100.0100 ####[facility] [address] [place], [address] Erythrocyte distribution width (RBC) [Ratio] 12.9 % Normal 11.6-14.6 [facility] Comment on above: Order Comment: 109.1 Performed By: #### L 100.0100 ####[facility] [address] [place], [address] Hematocrit (Bld) [Volume fraction] 41.4 % Normal 40-54 [facility] Comment on above: Order Comment: 109.1 Performed By: #### L 100.0100 ####[facility] [address] [place], [address] Hemoglobin (Bld) [Mass/Vol] 13.5 g/dL Normal 13.0-16.5 [facility] Comment on above: Order Comment: 109.1 Performed By: #### L 100.0100 ####[facility] [address] [place], [address] IG% 0.300 Normal 0.0-0.9 [facility] Comment on above: Order Comment: 109.1 Result Comment: IG% - Immature Granulocytes (promyelocytes, myelocytes andmetamyelocytes) > 1% indicates that a LEFT SHIFT is Present. Performed By: #### L 100.0100 ####[facility] [address] [place], [address] Lymphocytes/100 WBC (Bld) 23.9 % Normal 19-41 [facility] Comment on above: Order Comment: 109.1 Performed By: #### L 100.0100 ####[facility] [address] [place], [address] MCH (RBC) [Entitic mass] 29.8 pg Normal 27.0-32.0 [facility] Comment on above: Order Comment: 109.1 Performed By: #### L 100.0100 ####[facility] [address] [place], [address] MCHC (RBC) [Mass/Vol] 32.6 g/dL Normal 32-36 [facility] Comment on above: Order Comment: 109.1 Performed By: #### L 100.0100 ####[facility] [address] [place], [address] MCV (RBC) [Entitic vol] 91.4 fL Normal 80-94 [facility] Comment on above: Order Comment: 109.1 Performed By: #### L 100.0100 ####[facility] [address] [place], [address] Monocytes/100 WBC (Bld) 9.4 % Normal 0-10 [facility] Comment on above: Order Comment: 109.1 Performed By: #### L 100.0100 ####[facility] [address] [place], [address] Neutrophils/100 WBC (Bld) 64.9 % Normal 47-70 [facility] Comment on above: Order Comment: 109.1 Performed By: #### L 100.0100 ####[facility] [address] [place], [address] Nucleated RBC (Bld) [#/Vol] 0 10*3/uL Normal 0-5 [facility] Comment on above: Order Comment: 109.1 Performed By: #### L 100.0100 ####[facility] [address] [place], [address] Platelet mean volume (Bld) [Entitic vol] 11.5 fL Normal 6.2-12.0 [facility] Comment on above: Order Comment: 109.1 Performed By: #### L 100.0100 ####[facility] [address] [place], [address] Platelets (Bld) [#/Vol] 202 10*3/uL Normal 150-450 [facility] Comment on above: Order Comment: 109.1 Performed By: #### L 100.0100 ####[facility] [address] [place], [address] RBC (Bld) [#/Vol] 4.53 10*6/uL Low 4.6-6.2 [facility] Comment on above: Order Comment: 109.1 Performed By: #### L 100.0100 ####[facility] [address] [place], [address] RDW SD 42.7 fl Normal 35.1-43.9 [facility] Comment on above: Order Comment: 109.1 Performed By: #### L 100.0100 ####[facility] [address] [place], [address] WBC (Bld) [#/Vol] 8.0 10*3/uL Normal 4.4-11.0 [facility] Comment on above: Order Comment: 109.1 Performed By: #### L 100.0100 ####[facility] [address] [place], [address] Eosinophil percentageOrdered By: Renard Burgos on 07-22-2024 Eosinophils/100 WBC (Bld) 0.9 % 0-5 [facility] Erythrocyte distribution wid th ratioOrdered By: Renard Burgos on 07-22-2024 Erythrocyte distribution width (RBC) [Ratio] 12.9 % 11.6-14.6 [facility] Erythrocyte distribution wid th standard deviationOrdered By: Renard Burgos on 07-22-2024 Erythrocyte distribution width (RBC) [Entitic vol] 42.7 fL 35.1-43.9 [facility] Erythrocyte distribution width (RBC) [Ratio] 42.7 fl 35.1-43.9 [facility] Hematocrit Auto (Bld) [Volum e fraction]Ordered By: Renard Burgos on 07-22-2024 Hematocrit (Bld) [Volume fraction] 41.4 % 40-54 [facility] Hemoglobin measurementOrdere d By: Renard Burgos on 07-22-2024 Hemoglobin (Bld) [Mass/Vol] 13.5 g/dL 13.0-16.5 [facility] Immature granulocytes/100 WB C Auto (Bld)Ordered By: Renard Burgos on 07-22-2024 Immature granulocytes/100 WBC (Bld) 0.300 % 0.0-0.9 [facility] Comment on above: IG% - Immature Granu locytes (promyelocytes, myelocytes and metamyelocytes) > 1% indicates that a LEFT SHIFT is Present. Lymphocytes Auto (Unsp spec) [#/Vol]Ordered By: Renard Burgos on 07-22-2024 Lymphocytes (Bld) [#/Vol] 1.90 10*3/uL 0.83-4.51 [facility] Lymphocytes/100 WBC Auto (Un sp spec)Ordered By: Renard Burgos on 07-22-2024 Lymphocytes/100 WBC (Bld) 23.9 % 19-41 [facility] MCV (mean corpuscular volume ) determinationOrdered By: Renard Burgos on 07-22-2024 MCV (RBC) [Entitic vol] 91.4 fL 80-94 [facility] Mean corpuscular hemoglobin (MCH) determinationOrdered By: Renard Burgos on 07-22-2024 MCH (RBC) [Entitic mass] 29.8 pg 27.0-32.0 [facility] Mean corpuscular hemoglobin concentration (MCHC) determinationOrdered By: Renard Burgos on 07-22-2024 MCHC (RBC) [Mass/Vol] 32.6 g/dL 32-36 [facility] Mean platelet volume determi nationOrdered By: Renard Burgos on 07-22-2024 Platelet mean volume (Bld) [Entitic vol] 11.5 fL 6.2-12.0 [facility] Monocyte percentageOrdered B y: Renard Burgos on 07-22-2024 Monocytes/100 WBC (Bld) 9.4 % 0-10 [facility] Neutrophil percentageOrdered By: Renard Burgos on 07-22-2024 Neutrophils/100 WBC (Bld) 64.9 % 47-70 [facility] Nucleated red blood cell per centageOrdered By: Renard Burgos on 07-22-2024 Nucleated RBC/100 WBC (Bld) [Ratio] 0 % 0-5 [facility] Platelet countOrdered By: Garrick Bhatt on 07-22-2024 Platelets (Bld) [#/Vol] 202 10*3/uL 150-450 [facility] RBC Auto (Bld) [#/Vol]Ordere d By: Renard Burgos on 07-22-2024 RBC (Bld) [#/Vol] 4.53 10*6/uL Low 4.6-6.2 [facility] White blood cell (WBC) count Ordered By: Renard Burgos on 07-22-2024 WBC (Bld) [#/Vol] 8.0 10*3/uL 4.4-11.0 [facility] L506.1001on 07-16-2024 Vitamin D 25-OH 21.8 ng/mL Low 30-100 [facility] Comment on above: Order Comment: 109 Result Comment: Edilma min D StatusDeficiency: <20 ng/mL (50nmol/L)Insufficiency: 20-30 ng/mL (50-75 nmol/L)Sufficiency: 30-100 ng/mL (75-250 nmol/L)Toxicity: >100 ng/mL (>250 nmol/L) Performed By: #### L 506.1001 ####[facility] [address] [place], [address] Vitamin D, 25-hydroxyOrdered By: Renard Burgos on 07-16-2024 Vitamin D 25-Hydroxy 21.8 ng/mL Low 30-100 [facility] Comment on above: Vitamin D StatusDefi ciency: <20 ng/mL (50nmol/L)Insufficiency: 20-30 ng/mL (50-75 nmol/L)Sufficiency: 30-100 ng/mL (75-250 nmol/L)Toxicity: >100 ng/mL (>250 nmol/L) Absolute lymphocyte countOrd ered By: Renard Burgos on 07-15-2024 Lymphocytes Auto (Unsp spec) [#/Vol] 2.10 10*3/uL 0.83-4.51 [facility] Absolute neutrophil countOrd ered By: Renard Burgos on 07-15-2024 Neutrophils (Bld) [#/Vol] 6.9 10*3/uL 2.0-7.7 [facility] Automated lymphocyte count a s percentage of total leukocytesOrdered By: Renard Burgos on 07-15-2024 Lymphocytes/100 WBC Auto (Unsp spec) 21.0 % 19-41 [facility] Basophil percentageOrdered B y: Renard Burgos on 07-15-2024 Basophils/100 WBC (Bld) 0.5 % 0-1 [facility] CBC W/Diff, Automatedon - Absolute Lymph 2.10 X10 3/uL Normal 0.83-4.51 [facility] Comment on above: Order Comment: 109.1 Performed By: #### L 100.0100 ####[facility] [address] [place], [address] Absolute Neut 6.9 X10 3/uL Normal 2.0-7.7 [facility] Comment on above: Order Comment: 109.1 Performed By: #### L 100.0100 ####[facility] [address] [place], [address] Basophils/100 WBC (Bld) 0.5 % Normal 0-1 [facility] Comment on above: Order Comment: 109.1 Performed By: #### L 100.0100 ####[facility] [address] [place], [address] Eosinophils/100 WBC (Bld) 1.2 % Normal 0-5 [facility] Comment on above: Order Comment: 109.1 Performed By: #### L 100.0100 ####[facility] [address] [place], [address] Erythrocyte distribution width (RBC) [Ratio] 12.9 % Normal 11.6-14.6 [facility] Comment on above: Order Comment: 109.1 Performed By: #### L 100.0100 ####[facility] [address] [place], [address] Hematocrit (Bld) [Volume fraction] 41.0 % Normal 40-54 [facility] Comment on above: Order Comment: 109.1 Performed By: #### L 100.0100 ####[facility] [address] [place], [address] Hemoglobin (Bld) [Mass/Vol] 13.4 g/dL Normal 13.0-16.5 [facility] Comment on above: Order Comment: 109.1 Performed By: #### L 100.0100 ####[facility] [address] [place], [address] IG% 0.300 Normal 0.0-0.9 [facility] Comment on above: Order Comment: 109.1 Result Comment: IG% - Immature Granulocytes (promyelocytes, myelocytes andmetamyelocytes) > 1% indicates that a LEFT SHIFT is Present. Performed By: #### L 100.0100 ####[facility] [address] [place], [address] Lymphocytes/100 WBC (Bld) 21.0 % Normal 19-41 [facility] Comment on above: Order Comment: 109.1 Performed By: #### L 100.0100 ####[facility] [address] [place], [address] MCH (RBC) [Entitic mass] 29.7 pg Normal 27.0-32.0 [facility] Comment on above: Order Comment: 109.1 Performed By: #### L 100.0100 ####[facility] [address] [place], [address] MCHC (RBC) [Mass/Vol] 32.7 g/dL Normal 32-36 [facility] Comment on above: Order Comment: 109.1 Performed By: #### L 100.0100 ####[facility] [address] [place], [address] MCV (RBC) [Entitic vol] 90.9 fL Normal 80-94 [facility] Comment on above: Order Comment: 109.1 Performed By: #### L 100.0100 ####[facility] [address] [place], [address] Monocytes/100 WBC (Bld) 7.6 % Normal 0-10 [facility] Comment on above: Order Comment: 109.1 Performed By: #### L 100.0100 ####[facility] [address] [place], [address] Neutrophils/100 WBC (Bld) 69.4 % Normal 47-70 [facility] Comment on above: Order Comment: 109.1 Performed By: #### L 100.0100 ####[facility] [address] [place], [address] Nucleated RBC (Bld) [#/Vol] 0 10*3/uL Normal 0-5 [facility] Comment on above: Order Comment: 109.1 Performed By: #### L 100.0100 ####[facility] [address] [place], [address] Platelet mean volume (Bld) [Entitic vol] 11.4 fL Normal 6.2-12.0 [facility] Comment on above: Order Comment: 109.1 Performed By: #### L 100.0100 ####[facility] [address] [place], [address] Platelets (Bld) [#/Vol] 206 10*3/uL Normal 150-450 [facility] Comment on above: Order Comment: 109.1 Performed By: #### L 100.0100 ####[facility] [address] [place], [address] RBC (Bld) [#/Vol] 4.51 10*6/uL Low 4.6-6.2 [facility] Comment on above: Order Comment: 109.1 Performed By: #### L 100.0100 ####[facility] [address] [place], [address] RDW SD 42.3 fl Normal 35.1-43.9 [facility] Comment on above: Order Comment: 109.1 Performed By: #### L 100.0100 ####[facility] [address] [place], [address] WBC (Bld) [#/Vol] 10.0 10*3/uL Normal 4.4-11.0 [facility] Comment on above: Order Comment: 109.1 Performed By: #### L 100.0100 ####[facility] [address] [place], [address] Eosinophil percentageOrdered By: Renard Burgos on 07-15-2024 Eosinophils/100 WBC (Bld) 1.2 % 0-5 [facility] Erythrocyte distribution wid th ratioOrdered By: Renard Burgos on 07-15-2024 Erythrocyte distribution width (RBC) [Ratio] 12.9 % 11.6-14.6 [facility] Erythrocyte distribution wid th standard deviationOrdered By: Renard Burgos on 07-15-2024 Erythrocyte distribution width (RBC) [Entitic vol] 42.3 fL 35.1-43.9 [facility] Erythrocyte distribution width (RBC) [Ratio] 42.3 fl 35.1-43.9 [facility] Hematocrit Auto (Bld) [Volum e fraction]Ordered By: Renard Burgos on 07-15-2024 Hematocrit (Bld) [Volume fraction] 41.0 % 40-54 [facility] Hemoglobin measurementOrdere d By: Renard Burgos on 07-15-2024 Hemoglobin (Bld) [Mass/Vol] 13.4 g/dL 13.0-16.5 [facility] Immature granulocytes/100 WB C Auto (Bld)Ordered By: Renard Burgos on 07-15-2024 Immature granulocytes/100 WBC (Bld) 0.300 % 0.0-0.9 [facility] Comment on above: IG% - Immature Granu locytes (promyelocytes, myelocytes and metamyelocytes) > 1% indicates that a LEFT SHIFT is Present. Lymphocytes Auto (Unsp spec) [#/Vol]Ordered By: Renard Burgos on 07-15-2024 Lymphocytes (Bld) [#/Vol] 2.10 10*3/uL 0.83-4.51 [facility] Lymphocytes/100 WBC Auto (Un sp spec)Ordered By: Renard Burgos on 07-15-2024 Lymphocytes/100 WBC (Bld) 21.0 % 19-41 [facility] MCV (mean corpuscular volume ) determinationOrdered By: Renard Burgos on 07-15-2024 MCV (RBC) [Entitic vol] 90.9 fL 80-94 [facility] Mean corpuscular hemoglobin (MCH) determinationOrdered By: Rneard Burgos on 07-15-2024 MCH (RBC) [Entitic mass] 29.7 pg 27.0-32.0 [facility] Mean corpuscular hemoglobin concentration (MCHC) determinationOrdered By: Renard Burgos on 07-15-2024 MCHC (RBC) [Mass/Vol] 32.7 g/dL 32-36 [facility] Mean platelet volume determi nationOrdered By: Renard Burgos on 07-15-2024 Platelet mean volume (Bld) [Entitic vol] 11.4 fL 6.2-12.0 [facility] Monocyte percentageOrdered B y: Renard Burgos on 07-15-2024 Monocytes/100 WBC (Bld) 7.6 % 0-10 [facility] Neutrophil percentageOrdered By: Renard Burgos on 07-15-2024 Neutrophils/100 WBC (Bld) 69.4 % 47-70 [facility] Nucleated red blood cell per centageOrdered By: Renard Burgos on 07-15-2024 Nucleated RBC/100 WBC (Bld) [Ratio] 0 % 0-5 [facility] Platelet countOrdered By: Garrick Bhatt on 07-15-2024 Platelets (Bld) [#/Vol] 206 10*3/uL 150-450 [facility] RBC Auto (Bld) [#/Vol]Ordere d By: Renard Burgos on 07-15-2024 RBC (Bld) [#/Vol] 4.51 10*6/uL Low 4.6-6.2 [facility] White blood cell (WBC) count Ordered By: Renard Burgos on 07-15-2024 WBC (Bld) [#/Vol] 10.0 10*3/uL 4.4-11.0 [facility] Absolute lymphocyte countOrd ered By: Renard Burgos on 07-08-2024 Lymphocytes Auto (Unsp spec) [#/Vol] 2.02 10*3/uL 0.83-4.51 [facility] Absolute neutrophil countOrd ered By: Renard Burgos on 07-08-2024 Neutrophils (Bld) [#/Vol] 7.2 10*3/uL 2.0-7.7 [facility] Automated lymphocyte count a s percentage of total leukocytesOrdered By: Renard Burgos on 07-08-2024 Lymphocytes/100 WBC Auto (Unsp spec) 19.7 % 19-41 [facility] Basophil percentageOrdered B y: Renard Burgos on 07-08-2024 Basophils/100 WBC (Bld) 0.6 % 0-1 [facility] CBC W/Diff, Automatedon 06-29 0-2024 Absolute Lymph 2.02 X10 3/uL Normal 0.83-4.51 [facility] Comment on above: Order Comment: 109-1 Performed By: #### L 100.0100 ####[facility] [address] [place], [address] Absolute Neut 7.2 X10 3/uL Normal 2.0-7.7 [facility] Comment on above: Order Comment: 109-1 Performed By: #### L 100.0100 ####[facility] [address] [place], [address] Basophils/100 WBC (Bld) 0.6 % Normal 0-1 [facility] Comment on above: Order Comment: 109-1 Performed By: #### L 100.0100 ####[facility] [address] [place], [address] Eosinophils/100 WBC (Bld) 1.5 % Normal 0-5 [facility] Comment on above: Order Comment: 109-1 Performed By: #### L 100.0100 ####[facility] [address] [place], [address] Erythrocyte distribution width (RBC) [Ratio] 12.9 % Normal 11.6-14.6 [facility] Comment on above: Order Comment: 109-1 Performed By: #### L 100.0100 ####[facility] [address] [place], [address] Hematocrit (Bld) [Volume fraction] 40.6 % Normal 40-54 [facility] Comment on above: Order Comment: 109-1 Performed By: #### L 100.0100 ####[facility] [address] [place], [address] Hemoglobin (Bld) [Mass/Vol] 13.6 g/dL Normal 13.0-16.5 [facility] Comment on above: Order Comment: 109-1 Performed By: #### L 100.0100 ####[facility] [address] [place], [address] IG% 0.500 Normal 0.0-0.9 [facility] Comment on above: Order Comment: 109-1 Result Comment: IG% - Immature Granulocytes (promyelocytes, myelocytes andmetamyelocytes) > 1% indicates that a LEFT SHIFT is Present. Performed By: #### L 100.0100 ####[facility] [address] [place], [address] Lymphocytes/100 WBC (Bld) 19.7 % Normal 19-41 [facility] Comment on above: Order Comment: 109-1 Performed By: #### L 100.0100 ####[facility] [address] [place], [address] MCH (RBC) [Entitic mass] 30.5 pg Normal 27.0-32.0 [facility] Comment on above: Order Comment: 109-1 Performed By: #### L 100.0100 ####[facility] [address] [place], [address] MCHC (RBC) [Mass/Vol] 33.5 g/dL Normal 32-36 [facility] Comment on above: Order Comment: 109-1 Performed By: #### L 100.0100 ####[facility] [address] [place], [address] MCV (RBC) [Entitic vol] 91.0 fL Normal 80-94 [facility] Comment on above: Order Comment: 109-1 Performed By: #### L 100.0100 ####[facility] [address] [place], [address] Monocytes/100 WBC (Bld) 7.4 % Normal 0-10 [facility] Comment on above: Order Comment: 109-1 Performed By: #### L 100.0100 ####[facility] [address] [place], [address] Neutrophils/100 WBC (Bld) 70.3 % High 47-70 [facility] Comment on above: Order Comment: 109-1 Performed By: #### L 100.0100 ####[facility] [address] [place], [address] Nucleated RBC (Bld) [#/Vol] 0 10*3/uL Normal 0-5 [facility] Comment on above: Order Comment: 109-1 Performed By: #### L 100.0100 ####[facility] [address] [place], [address] Platelet mean volume (Bld) [Entitic vol] 11.1 fL Normal 6.2-12.0 [facility] Comment on above: Order Comment: 109-1 Performed By: #### L 100.0100 ####[facility] [address] [place], [address] Platelets (Bld) [#/Vol] 207 10*3/uL Normal 150-450 [facility] Comment on above: Order Comment: 109-1 Performed By: #### L 100.0100 ####[facility] [address] [place], [address] RBC (Bld) [#/Vol] 4.46 10*6/uL Low 4.6-6.2 [facility] Comment on above: Order Comment: 109-1 Performed By: #### L 100.0100 ####[facility] [address] [place], [address] RDW SD 42.5 fl Normal 35.1-43.9 [facility] Comment on above: Order Comment: 109-1 Performed By: #### L 100.0100 ####[facility] [address] [place], [address] WBC (Bld) [#/Vol] 10.3 10*3/uL Normal 4.4-11.0 [facility] Comment on above: Order Comment: 109-1 Performed By: #### L 100.0100 ####[facility] [address] [place], [address] Eosinophil percentageOrdered By: Renard Burgos on 07-08-2024 Eosinophils/100 WBC (Bld) 1.5 % 0-5 [facility] Erythrocyte distribution wid th ratioOrdered By: Renard Burgos on 07-08-2024 Erythrocyte distribution width (RBC) [Ratio] 12.9 % 11.6-14.6 [facility] Erythrocyte distribution wid th standard deviationOrdered By: Renard Burgos on 07-08-2024 Erythrocyte distribution width (RBC) [Entitic vol] 42.5 fL 35.1-43.9 [facility] Erythrocyte distribution width (RBC) [Ratio] 42.5 fl 35.1-43.9 [facility] Hematocrit Auto (Bld) [Volum e fraction]Ordered By: Renard Burgos on 07-08-2024 Hematocrit (Bld) [Volume fraction] 40.6 % 40-54 [facility] Hemoglobin measurementOrdere d By: Renard Burgos on 07-08-2024 Hemoglobin (Bld) [Mass/Vol] 13.6 g/dL 13.0-16.5 [facility] Immature granulocytes/100 WB C Auto (Bld)Ordered By: Renard Burgos on 07-08-2024 Immature granulocytes/100 WBC (Bld) 0.500 % 0.0-0.9 [facility] Comment on above: IG% - Immature Granu locytes (promyelocytes, myelocytes and metamyelocytes) > 1% indicates that a LEFT SHIFT is Present. Lymphocytes Auto (Unsp spec) [#/Vol]Ordered By: Renard Burgos on 07-08-2024 Lymphocytes (Bld) [#/Vol] 2.02 10*3/uL 0.83-4.51 [facility] Lymphocytes/100 WBC Auto (Un sp spec)Ordered By: Renard Burgos on 07-08-2024 Lymphocytes/100 WBC (Bld) 19.7 % 19-41 [facility] MCV (mean corpuscular volume ) determinationOrdered By: Renard Burgos on 07-08-2024 MCV (RBC) [Entitic vol] 91.0 fL 80-94 [facility] Mean corpuscular hemoglobin (MCH) determinationOrdered By: Renard Burgos on 07-08-2024 MCH (RBC) [Entitic mass] 30.5 pg 27.0-32.0 [facility] Mean corpuscular hemoglobin concentration (MCHC) determinationOrdered By: Renard Burgos on 07-08-2024 MCHC (RBC) [Mass/Vol] 33.5 g/dL 32-36 [facility] Mean platelet volume determi nationOrdered By: Renard Burgos on 07-08-2024 Platelet mean volume (Bld) [Entitic vol] 11.1 fL 6.2-12.0 [facility] Monocyte percentageOrdered B y: Renard Burgos on 07-08-2024 Monocytes/100 WBC (Bld) 7.4 % 0-10 [facility] Neutrophil percentageOrdered By: Renard Burgos on 07-08-2024 Neutrophils/100 WBC (Bld) 70.3 % High 47-70 [facility] Nucleated red blood cell per centageOrdered By: Renard Burgos on 07-08-2024 Nucleated RBC/100 WBC (Bld) [Ratio] 0 % 0-5 [facility] Platelet countOrdered By: Garrick Bhatt on 07-08-2024 Platelets (Bld) [#/Vol] 207 10*3/uL 150-450 [facility] RBC Auto (Bld) [#/Vol]Ordere d By: Renard Burgos on 07-08-2024 RBC (Bld) [#/Vol] 4.46 10*6/uL Low 4.6-6.2 [facility] White blood cell (WBC) count Ordered By: Renard Burgos on 07-08-2024 WBC (Bld) [#/Vol] 10.3 10*3/uL 4.4-11.0 [facility] Absolute lymphocyte countOrd ered By: Renard Burgos on 07-01-2024 Lymphocytes Auto (Unsp spec) [#/Vol] 2.03 10*3/uL 0.83-4.51 [facility] Absolute neutrophil countOrd ered By: Renard Burgos on 07-01-2024 Neutrophils (Bld) [#/Vol] 7.0 10*3/uL 2.0-7.7 [facility] Automated lymphocyte count a s percentage of total leukocytesOrdered By: Renard Burgos on 07-01-2024 Lymphocytes/100 WBC Auto (Unsp spec) 20.3 % 19-41 [facility] Basophil percentageOrdered B y: Renard Burgos on 07-01-2024 Basophils/100 WBC (Bld) 0.6 % 0-1 [facility] CBC W/Diff, Automatedon Absolute Lymph 2.03 X10 3/uL Normal 0.83-4.51 [facility] Comment on above: Order Comment: 109 Performed By: #### L 100.0100 ####[facility] [address] [place], [address] Absolute Neut 7.0 X10 3/uL Normal 2.0-7.7 [facility] Comment on above: Order Comment: 109 Performed By: #### L 100.0100 ####[facility] [address] [place], [address] Basophils/100 WBC (Bld) 0.6 % Normal 0-1 [facility] Comment on above: Order Comment: 109 Performed By: #### L 100.0100 ####[facility] [address] [place], [address] Eosinophils/100 WBC (Bld) 1.3 % Normal 0-5 [facility] Comment on above: Order Comment: 109 Performed By: #### L 100.0100 ####[facility] [address] [place], [address] Erythrocyte distribution width (RBC) [Ratio] 13.1 % Normal 11.6-14.6 [facility] Comment on above: Order Comment: 109 Performed By: #### L 100.0100 ####[facility] [address] [place], [address] Hematocrit (Bld) [Volume fraction] 41.7 % Normal 40-54 [facility] Comment on above: Order Comment: 109 Performed By: #### L 100.0100 ####[facility] [address] [place], [address] Hemoglobin (Bld) [Mass/Vol] 13.6 g/dL Normal 13.0-16.5 [facility] Comment on above: Order Comment: 109 Performed By: #### L 100.0100 ####[facility] [address] [place], [address] IG% 0.500 Normal 0.0-0.9 [facility] Comment on above: Order Comment: 109 Result Comment: IG% - Immature Granulocytes (promyelocytes, myelocytes andmetamyelocytes) > 1% indicates that a LEFT SHIFT is Present. Performed By: #### L 100.0100 ####[facility] [address], [address] Lymphocytes/100 WBC (Bld) 20.3 % Normal 19-41 [facility] Comment on above: Order Comment: 109 Performed By: #### L 100.0100 ####[facility] [address] [place], [address] MCH (RBC) [Entitic mass] 29.6 pg Normal 27.0-32.0 [facility] Comment on above: Order Comment: 109 Performed By: #### L 100.0100 ####[facility] [address] [place], [address] MCHC (RBC) [Mass/Vol] 32.6 g/dL Normal 32-36 [facility] Comment on above: Order Comment: 109 Performed By: #### L 100.0100 ####[facility] [address] [place], [address] MCV (RBC) [Entitic vol] 90.8 fL Normal 80-94 [facility] Comment on above: Order Comment: 109 Performed By: #### L 100.0100 ####[facility] [address] [place], [address] Monocytes/100 WBC (Bld) 6.8 % Normal 0-10 [facility] Comment on above: Order Comment: 109 Performed By: #### L 100.0100 ####[facility] [address] [place], [address] Neutrophils/100 WBC (Bld) 70.5 % High 47-70 [facility] Comment on above: Order Comment: 109 Performed By: #### L 100.0100 ####[facility] [address] [place], [address] Nucleated RBC (Bld) [#/Vol] 0 10*3/uL Normal 0-5 [facility] Comment on above: Order Comment: 109 Performed By: #### L 100.0100 ####[facility] [address] [place], [address] Platelet mean volume (Bld) [Entitic vol] 11.0 fL Normal 6.2-12.0 [facility] Comment on above: Order Comment: 109 Performed By: #### L 100.0100 ####[facility] [address] [place], [address] Platelets (Bld) [#/Vol] 208 10*3/uL Normal 150-450 [facility] Comment on above: Order Comment: 109 Performed By: #### L 100.0100 ####[facility] [address] [place], [address] RBC (Bld) [#/Vol] 4.59 10*6/uL Low 4.6-6.2 [facility] Comment on above: Order Comment: 109 Performed By: #### L 100.0100 ####[facility] [address] [place], [address] RDW SD 42.8 fl Normal 35.1-43.9 [facility] Comment on above: Order Comment: 109 Performed By: #### L 100.0100 ####[facility] [address] [place], [address] WBC (Bld) [#/Vol] 10.0 10*3/uL Normal 4.4-11.0 [facility] Comment on above: Order Comment: 109 Performed By: #### L 100.0100 ####[facility] [address] [place], [address] Eosinophil percentageOrdered By: Renard Burgos on 07-01-2024 Eosinophils/100 WBC (Bld) 1.3 % 0-5 [facility] Erythrocyte distribution wid th ratioOrdered By: Renard Burgos on 07-01-2024 Erythrocyte distribution width (RBC) [Ratio] 13.1 % 11.6-14.6 [facility] Erythrocyte distribution wid th standard deviationOrdered By: Renard Burgos on 07-01-2024 Erythrocyte distribution width (RBC) [Entitic vol] 42.8 fL 35.1-43.9 [facility] Erythrocyte distribution width (RBC) [Ratio] 42.8 fl 35.1-43.9 [facility] Hematocrit Auto (Bld) [Volum e fraction]Ordered By: Renard Burgos on 07-01-2024 Hematocrit (Bld) [Volume fraction] 41.7 % 40-54 [facility] Hemoglobin measurementOrdere d By: Renard Burgos on 07-01-2024 Hemoglobin (Bld) [Mass/Vol] 13.6 g/dL 13.0-16.5 [facility] Immature granulocytes/100 WB C Auto (Bld)Ordered By: Renard Burgos on 07-01-2024 Immature granulocytes/100 WBC (Bld) 0.500 % 0.0-0.9 [facility] Comment on above: IG% - Immature Granu locytes (promyelocytes, myelocytes and metamyelocytes) > 1% indicates that a LEFT SHIFT is Present. Lymphocytes Auto (Unsp spec) [#/Vol]Ordered By: Renard Burgos on 07-01-2024 Lymphocytes (Bld) [#/Vol] 2.03 10*3/uL 0.83-4.51 [facility] Lymphocytes/100 WBC Auto (Un sp spec)Ordered By: Renard Burgos on 07-01-2024 Lymphocytes/100 WBC (Bld) 20.3 % 19-41 [facility] MCV (mean corpuscular volume ) determinationOrdered By: Renard Burgos on 07-01-2024 MCV (RBC) [Entitic vol] 90.8 fL 80-94 [facility] Mean corpuscular hemoglobin (MCH) determinationOrdered By: Renard Burgos on 07-01-2024 MCH (RBC) [Entitic mass] 29.6 pg 27.0-32.0 [facility] Mean corpuscular hemoglobin concentration (MCHC) determinationOrdered By: Renard Burgos on 07-01-2024 MCHC (RBC) [Mass/Vol] 32.6 g/dL 32-36 [facility] Mean platelet volume determi nationOrdered By: Renard Burgos on 07-01-2024 Platelet mean volume (Bld) [Entitic vol] 11.0 fL 6.2-12.0 [facility] Monocyte percentageOrdered B y: Renard Burgos on 07-01-2024 Monocytes/100 WBC (Bld) 6.8 % 0-10 [facility] Neutrophil percentageOrdered By: Renard Burgos on 07-01-2024 Neutrophils/100 WBC (Bld) 70.5 % High 47-70 [facility] Nucleated red blood cell per centageOrdered By: eRnard Burgos on 07-01-2024 Nucleated RBC/100 WBC (Bld) [Ratio] 0 % 0-5 [facility] Platelet countOrdered By: Garrick Bhatt on 07-01-2024 Platelets (Bld) [#/Vol] 208 10*3/uL 150-450 [facility] RBC Auto (Bld) [#/Vol]Ordere d By: Renard Burgos on 07-01-2024 RBC (Bld) [#/Vol] 4.59 10*6/uL Low 4.6-6.2 [facility] White blood cell (WBC) count Ordered By: Renard Burgos on 07-01-2024 WBC (Bld) [#/Vol] 10.0 10*3/uL 4.4-11.0 [facility] Urine Cultureon 06-30-2024 URC Normal [facility] Comment on above: Performed By: #### M 100.2200, L400.0001 ####[facility] [address] [place], [address] Bilirubin Test strip Ql (U)O rdered By: Renard Burgos on 06-27-2024 Bilirubin Ql (U) Negative Negative [facility] Epithelial cells.squamous LM Ql (Urine sed)Ordered By: Renard Burgos on 06-27-2024 Epithelial cells.squamous LM.HPF (Urine sed) [#/Area] 0 /[HPF] 0-5 [facility] Glucose Ql (U)Ordered By: Garrick Bhatt on 06-27-2024 Urine Glucose (UA) Normal mg/dl Normal [facility] Ketones Test strip Ql (U)Ord ered By: Renard Burgos on 06-27-2024 Ketones Ql (U) Negative Negative [facility] Microscopic analysis of urin e for red blood cells (RBC)Ordered By: Renard Burgos on 06-27-2024 Microscopic analysis of urine for red blood cells (RBC) 0 SEEN /hpf 0-5 [facility] Urine RBC 0 SEEN /hpf 0-5 [facility] Mucus LM Ql (Urine sed)Order ed By: Renard Burgos on 06-27-2024 Mucus Ql (Urine sed) 0 SEEN /hpf [facility] Nitrite Test strip Ql (U)Ord ered By: Renard Burgos on 06-27-2024 Nitrite Ql (U) Negative Negative [facility] Protein Test strip Ql (U)Ord ered By: Renard Burgos on 06-27-2024 Protein Ql (U) 15 mg/dl High Negative [facility] Squamous epithelial cells de tection in urine sediment by light microscopyOrdered By: Renard Burgos on 06-27-2024 Epithelial cells.squamous LM Ql (Urine sed) 0 SEEN /hpf 0-5 [facility] Urinalysis, Completeon 06-27 RBC 0 SEEN Normal 0-5 [facility] Comment on above: Order Comment: ARCHANA TER SPECIMEN Performed By: #### M 100.2200, L400.0001 ####[facility] [address] [place], [address] Urine blood detectionOrdered By: Renard Burgos on 06-27-2024 Urine Occult Blood Negative Negative [facility] Urine clarityOrdered By: Lyubov Burgos on 06-27-2024 Clarity (U) Clear Clear [facility] Urine color determinationOrd ered By: Renard Burgos on 06-27-2024 Color (U) Yellow Yellow [facility] Urine cultureOrdered By: Lyubov Burgos on 06-27-2024 Bacteria identified Cx Nom (U) Staphylococcus warneri Abnormal [facility] Bacteria identified Cx Nom (U) Aerococcus viridans. Abnormal [facility] Bacteria identified Cx Nom (U) Presumptive C albicans Abnormal [facility] Bacteria identified Cx Nom (U) Staphylococcus warneri Abnormal [facility] Bacteria identified Cx Nom (U) Aerococcus viridans. Abnormal [facility] Bacteria identified Cx Nom (U) Presumptive C albicans Abnormal [facility] Urine glucose detectionOrder ed By: Renard Burgos on 06-27-2024 Glucose Ql (U) Normal mg/dl Normal [facility] Urine leukocyte esterase det ection by dipstickOrdered By: Renard Burgos on 06-27-2024 Leukocyte esterase Test strip Ql (U) Negative Negative [facility] Urine pHOrdered By: Renard ocampo on 06-27-2024 pH (U) 7.0 [pH] 5.0 - 8.0 [facility] Urine sediment bacteria coun t by microscopy (number/high power field)Ordered By: Renard Burgos on 06-27-2024 Bacteria LM.HPF (Urine sed) [#/Area] 0 /[HPF] None Seen [facility] Urine specific gravity measu rementOrdered By: Renard Burgos on 06-27-2024 Specific gravity (U) [Rel density] 1.010 1.002-1.030 [facility] Urine urobilinogen measureme ntOrdered By: Renard Burgos on 06-27-2024 Urobilinogen Ql (U) 4 mg/dl High Normal [facility] Urobilinogen Ql (U)Ordered B y: Renard Burgos on 06-27-2024 Urobilinogen (U) [Mass/Vol] 4 mg/dL High Normal [facility] White blood cell countOrdere d By: Renard Burgos on 06-27-2024 Urine WBC 0 SEEN /hpf 0-5 [facility] White blood cell count 0 SEEN /hpf 0-5 [facility] CT CHEST WO IV CONTRASTon CT CHEST WO IV CONTRAST [facility] 1955 [id number] Exam Date/Time: 06/24/2024 16:30 Procedure: CT CHEST [...] 8:07 AM EST Cough x 2months Normal [facility] CT Chest WO contraston 06-26 Nonspecific groundglass densities are noted in the bilateral lower lobes. 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 [facility] Maria Eugenia Ruiz MD - 06/26/2024 Patient Name: KATHYA HOOPER : 1955 [facility]#: [id number] Exam Date/Time: 06/24/2024 16:30 Procedure: CT CHEST [...] Electronically Signed Date/Time: 06/26/2024 8:[address] [facility] [address] Chest WO contrastOrdered By: Maria Eugenia Ruiz on 06-26-2024 [facility] Work Phone: Absolute lymphocyte countOrd ered By: Renard Burgos on 06-24-2024 Lymphocytes Auto (Unsp spec) [#/Vol] 1.65 10*3/uL 0.83-4.51 [facility] Absolute neutrophil countOrd ered By: Renard Burgos on 06-24-2024 Neutrophils (Bld) [#/Vol] 10.2 10*3/uL High 2.0-7.7 [facility] Automated lymphocyte count a s percentage of total leukocytesOrdered By: Renard Burgos on 06-24-2024 Lymphocytes/100 WBC Auto (Unsp spec) 12.8 % Low 19-41 [facility] Basic Metabolic Profile (BMP )on 06-24-2024 BUN/CRE 24.9 RATIO High 10-20 [facility] Comment on above: Order Comment: 109.1 Performed By: #### L 100.0100, L500.2500 ####[facility] [address] [place], [address] CA,Total 8.3 mg/dL Low 8.5-10.1 [facility] Comment on above: Order Comment: 109.1 Performed By: #### L 100.0100, L500.2500 ####[facility] [address] [place], [address] Chloride [Moles/Vol] 107 mmol/L Normal 98-107 [facility] Comment on above: Order Comment: 109.1 Performed By: #### L 100.0100, L500.2500 ####[facility] [address] [place], [address] CO2 [Moles/Vol] 24.0 mmol/L Normal 21.0-32.0 [facility] Comment on above: Order Comment: 109.1 Performed By: #### L 100.0100, L500.2500 ####[facility] [address] [place], [address] Creatinine [Mass/Vol] 0.60 mg/dL Low 0.70-1.30 [facility] Comment on above: Order Comment: 109.1 Result Comment: The validity of the calculated GFR GFRAA in patients over70 years has not been determined. Clinical correlation isessential. Performed By: #### L 100.0100, L500.2500 ####[facility] [address] [place], [address] EST GFR - AA 172 mL/min Normal >60 [facility] Comment on above: Order Comment: 109.1 Result Comment: Afri can Afghan GFR Calc Performed By: #### L 100.0100, L500.2500 ####[facility] [address] [place], [address] GAP 8 Normal 5-15 [facility] Comment on above: Order Comment: 109.1 Performed By: #### L 100.0100, L500.2500 ####[facility] [address] [place], [address] GFR/1.73 sq M.predicted among non-blacks MDRD (S/P/Bld) [Vol rate/Area] 142 mL/min/{1.73_m2} Normal >60 [facility] Comment on above: Order Comment: 109.1 Result Comment: Non- GFR Calc Performed By: #### L 100.0100, L500.2500 ####[facility] [address] [place], [address] Glucose [Mass/Vol] 101 mg/dL Normal 74-106 [facility] Comment on above: Order Comment: 109.1 Result Comment: Fast ing Glucose result from 100 to 125 mg/dLsuggests IMPAIRED HOMEOSTASIS per A.D.A. criteria. Performed By: #### L 100.0100, L500.2500 ####[facility] [address] [place], [address] Potassium [Moles/Vol] 4.1 mmol/L Normal 3.5-5.1 [facility] Comment on above: Order Comment: 109.1 Performed By: #### L 100.0100, L500.2500 ####[facility] [address] [place], [address] Sodium [Moles/Vol] 139 mmol/L Normal 136-145 [facility] Comment on above: Order Comment: 109.1 Performed By: #### L 100.0100, L500.2500 ####[facility] [address] [place], [address] Urea nitrogen [Mass/Vol] 15 mg/dL Normal 7-18 [facility] Comment on above: Order Comment: 109.1 Performed By: #### L 100.0100, L500.2500 ####[facility] [address] [place], [address] Basophil percentageOrdered B y: Renard Burgos on 06-24-2024 Basophils/100 WBC (Bld) 0.5 % 0-1 [facility] Blood urea nitrogen (BUN)/cr eatinine ratioOrdered By: Renard Burgos on 06-24-2024 Urea nitrogen/Creatinine [Mass ratio] 24.9 mg/mg High 10-20 [facility] CBC W/Diff, Automatedon - Absolute Lymph 1.65 X10 3/uL Normal 0.83-4.51 [facility] Comment on above: Order Comment: 109.1 Performed By: #### L 100.0100, L500.2500 ####[facility] [address] [place], [address] Absolute Neut 10.2 X10 3/uL High 2.0-7.7 [facility] Comment on above: Order Comment: 109.1 Performed By: #### L 100.0100, L500.2500 ####[facility] [address] [place], [address] Basophils/100 WBC (Bld) 0.5 % Normal 0-1 [facility] Comment on above: Order Comment: 109.1 Performed By: #### L 100.0100, L500.2500 ####[facility] [address] [place], [address] Eosinophils/100 WBC (Bld) 0.8 % Normal 0-5 [facility] Comment on above: Order Comment: 109.1 Performed By: #### L 100.0100, L500.2500 ####[facility] [address] [place], [address] Erythrocyte distribution width (RBC) [Ratio] 13.2 % Normal 11.6-14.6 [facility] Comment on above: Order Comment: 109.1 Performed By: #### L 100.0100, L500.2500 ####[facility] [address] [place], [address] Hematocrit (Bld) [Volume fraction] 41.8 % Normal 40-54 [facility] Comment on above: Order Comment: 109.1 Performed By: #### L 100.0100, L500.2500 ####[facility] [address] [place], [address] Hemoglobin (Bld) [Mass/Vol] 13.6 g/dL Normal 13.0-16.5 [facility] Comment on above: Order Comment: 109.1 Performed By: #### L 100.0100, L500.2500 ####[facility] [address] [place], [address] IG% 0.500 Normal 0.0-0.9 [facility] Comment on above: Order Comment: 109.1 Result Comment: IG% - Immature Granulocytes (promyelocytes, myelocytes andmetamyelocytes) > 1% indicates that a LEFT SHIFT is Present. Performed By: #### L 100.0100, L500.2500 ####[facility] [address] [place], [address] Lymphocytes/100 WBC (Bld) 12.8 % Low 19-41 [facility] Comment on above: Order Comment: 109.1 Performed By: #### L 100.0100, L500.2500 ####[facility] [address] [place], [address] MCH (RBC) [Entitic mass] 30.2 pg Normal 27.0-32.0 [facility] Comment on above: Order Comment: 109.1 Performed By: #### L 100.0100, L500.2500 ####[facility] [address] [place], [address] MCHC (RBC) [Mass/Vol] 32.5 g/dL Normal 32-36 [facility] Comment on above: Order Comment: 109.1 Performed By: #### L 100.0100, L500.2500 ####[facility] [address] [place], [address] MCV (RBC) [Entitic vol] 92.7 fL Normal 80-94 [facility] Comment on above: Order Comment: 109.1 Performed By: #### L 100.0100, L500.2500 ####[facility] [address] [place], [address] Monocytes/100 WBC (Bld) 6.4 % Normal 0-10 [facility] Comment on above: Order Comment: 109.1 Performed By: #### L 100.0100, L500.2500 ####[facility] [address] [place], [address] Neutrophils/100 WBC (Bld) 79.0 % High 47-70 [facility] Comment on above: Order Comment: 109.1 Performed By: #### L 100.0100, L500.2500 ####[facility] [address] [place], [address] Nucleated RBC (Bld) [#/Vol] 0 10*3/uL Normal 0-5 [facility] Comment on above: Order Comment: 109.1 Performed By: #### L 100.0100, L500.2500 ####[facility] [address] [place], [address] Platelet mean volume (Bld) [Entitic vol] 11.3 fL Normal 6.2-12.0 [facility] Comment on above: Order Comment: 109.1 Performed By: #### L 100.0100, L500.2500 ####[facility] [address] [place], [address] Platelets (Bld) [#/Vol] 171 10*3/uL Normal 150-450 [facility] Comment on above: Order Comment: 109.1 Performed By: #### L 100.0100, L500.2500 ####[facility] [address] [place], [address] RBC (Bld) [#/Vol] 4.51 10*6/uL Low 4.6-6.2 [facility] Comment on above: Order Comment: 109.1 Performed By: #### L 100.0100, L500.2500 ####[facility] [address] [place], [address] RDW SD 45.1 fl High 35.1-43.9 [facility] Comment on above: Order Comment: 109.1 Performed By: #### L 100.0100, L500.2500 ####[facility] [address] [place], [address] WBC (Bld) [#/Vol] 12.9 10*3/uL High 4.4-11.0 [facility] Comment on above: Order Comment: 109.1 Performed By: #### L 100.0100, L500.2500 ####[facility] [address] [place], [address] CT Chest WO contraston 06-24 Radiology Study observation (narrative) Estefania smith Carbon dioxide measurementOr dered By: Renard Burgos on 06-24-2024 CO2 [Moles/Vol] 24.0 mmol/L 21.0-32.0 [facility] Chloride measurementOrdered By: Renard Burgos on 06-24-2024 Chloride [Moles/Vol] 107 mmol/L 98-107 [facility] Eosinophil percentageOrdered By: Renard Burgos on 06-24-2024 Eosinophils/100 WBC (Bld) 0.8 % 0-5 [facility] Erythrocyte distribution wid th ratioOrdered By: Renard Burgos on 06-24-2024 Erythrocyte distribution width (RBC) [Ratio] 13.2 % 11.6-14.6 [facility] Erythrocyte distribution wid th standard deviationOrdered By: Renard Burgos on 06-24-2024 Erythrocyte distribution width (RBC) [Entitic vol] 45.1 fL High 35.1-43.9 [facility] Erythrocyte distribution width (RBC) [Ratio] 45.1 fl High 35.1-43.9 [facility] Estimated glomerular filtrat ion rate (GFR) AmericanOrdered By: Renard Burgos on 06-24-2024 Estimated GFR (MDRD) Amer 172 mL/min >60 [facility] Comment on above: GFR Calc Glomerular filtration rate ( GFR) estimationOrdered By: Renard Burgos on 06-24-2024 Estimated GFR (MDRD) Non-Af Amer 142 mL/min >60 [facility] Comment on above: Non- GFR Calc GFR/1.73 sq M.predicted among non-blacks MDRD (S/P/Bld) [Vol rate/Area] 142 mL/min/{1.73_m2} >60 [facility] Comment on above: Non- GFR Calc Glucose measurementOrdered B y: Renard uBrgos on 06-24-2024 Glucose [Mass/Vol] 101 mg/dL 74-106 [facility] Comment on above: Fasting Glucose resu lt from 100 to 125 mg/dL suggests IMPAIRED HOMEOSTASIS per A.D.A. criteria. Hematocrit Auto (Bld) [Volum e fraction]Ordered By: Renard Burgos on 06-24-2024 Hematocrit (Bld) [Volume fraction] 41.8 % 40-54 [facility] Hemoglobin measurementOrdere d By: Renard Burgos on 06-24-2024 Hemoglobin (Bld) [Mass/Vol] 13.6 g/dL 13.0-16.5 [facility] Immature granulocytes/100 WB C Auto (Bld)Ordered By: Renard Burgos on 06-24-2024 Immature granulocytes/100 WBC (Bld) 0.500 % 0.0-0.9 [facility] Comment on above: IG% - Immature Granu locytes (promyelocytes, myelocytes and metamyelocytes) > 1% indicates that a LEFT SHIFT is Present. Lymphocytes Auto (Unsp spec) [#/Vol]Ordered By: Renard Burgos on 06-24-2024 Lymphocytes (Bld) [#/Vol] 1.65 10*3/uL 0.83-4.51 [facility] Lymphocytes/100 WBC Auto (Un sp spec)Ordered By: Renard Burgos on 06-24-2024 Lymphocytes/100 WBC (Bld) 12.8 % Low 19-41 [facility] MCV (mean corpuscular volume ) determinationOrdered By: Renard Burgos on 06-24-2024 MCV (RBC) [Entitic vol] 92.7 fL 80-94 [facility] Mean corpuscular hemoglobin (MCH) determinationOrdered By: Renard Burgos on 06-24-2024 MCH (RBC) [Entitic mass] 30.2 pg 27.0-32.0 [facility] Mean corpuscular hemoglobin concentration (MCHC) determinationOrdered By: Renard Burgos on 06-24-2024 MCHC (RBC) [Mass/Vol] 32.5 g/dL 32-36 [facility] Mean platelet volume determi nationOrdered By: Renard Burgos on 06-24-2024 Platelet mean volume (Bld) [Entitic vol] 11.3 fL 6.2-12.0 [facility] Monocyte percentageOrdered B y: Renard Burgos on 06-24-2024 Monocytes/100 WBC (Bld) 6.4 % 0-10 [facility] Neutrophil percentageOrdered By: Renard Burgos on 06-24-2024 Neutrophils/100 WBC (Bld) 79.0 % High 47-70 [facility] Nucleated red blood cell per centageOrdered By: Renard Burgos on 06-24-2024 Nucleated RBC/100 WBC (Bld) [Ratio] 0 % 0-5 [facility] Platelet countOrdered By: Garrick Bhatt on 06-24-2024 Platelets (Bld) [#/Vol] 171 10*3/uL 150-450 [facility] Potassium measurementOrdered By: Renard Burgos on 06-24-2024 Potassium [Moles/Vol] 4.1 mmol/L 3.5-5.1 [facility] RBC Auto (Bld) [#/Vol]Ordere d By: Renard Burgos on 06-24-2024 RBC (Bld) [#/Vol] 4.51 10*6/uL Low 4.6-6.2 [facility] Serum anion gap measurementO rdered By: Renard Burgos on 06-24-2024 Anion gap [Moles/Vol] 8 mmol/L 5-15 [facility] Serum or plasma calcium gordy urement (mass/volume)Ordered By: Renard Burgos on 06-24-2024 Calcium [Mass/Vol] 8.3 mg/dL Low 8.5-10.1 [facility] Serum or plasma creatinine m easurement (mass/volume)Ordered By: Renard Burgos on 06-24-2024 Creatinine [Mass/Vol] 0.60 mg/dL Low 0.70-1.30 [facility] Comment on above: The validity of the calculated GFR & GFRAA in patients over 70 years has not been determined. Clinical correlation is essential. Serum or plasma urea nitroge n measurement (mass/volume)Ordered By: Renard Burgos on 06-24-2024 Urea nitrogen [Mass/Vol] 15 mg/dL 7-18 [facility] Sodium levelOrdered By: Lamine Burgos on 06-24-2024 Sodium [Moles/Vol] 139 mmol/L 136-145 [facility] White blood cell (WBC) count Ordered By: Renard Burgos on 06-24-2024 WBC (Bld) [#/Vol] 12.9 10*3/uL High 4.4-11.0 [facility] Absolute lymphocyte countOrd ered By: Renard Burgos on 06-17-2024 Lymphocytes Auto (Unsp spec) [#/Vol] 2.00 10*3/uL 0.83-4.51 [facility] Absolute neutrophil countOrd ered By: Renard Burgos on 06-17-2024 Neutrophils (Bld) [#/Vol] 5.1 10*3/uL 2.0-7.7 [facility] Automated lymphocyte count a s percentage of total leukocytesOrdered By: Renard Burgos on 06-17-2024 Lymphocytes/100 WBC Auto (Unsp spec) 24.5 % 19-41 [facility] Basophil percentageOrdered B y: Renard Burgos on 06-17-2024 Basophils/100 WBC (Bld) 1.1 % High 0-1 [facility] CBC W/Diff, Automatedon 06-01 Absolute Lymph 2.00 X10 3/uL Normal 0.83-4.51 [facility] Comment on above: Order Comment: 109-1 Performed By: #### L 100.0100 ####[facility] [address] [place], [address] Absolute Neut 5.1 X10 3/uL Normal 2.0-7.7 [facility] Comment on above: Order Comment: 109-1 Performed By: #### L 100.0100 ####[facility] [address] [place], [address] Basophils/100 WBC (Bld) 1.1 % High 0-1 [facility] Comment on above: Order Comment: 109-1 Performed By: #### L 100.0100 ####[facility] [address] [place], [address] Eosinophils/100 WBC (Bld) 3.4 % Normal 0-5 [facility] Comment on above: Order Comment: 109-1 Performed By: #### L 100.0100 ####[facility] [address] [place], [address] Erythrocyte distribution width (RBC) [Ratio] 13.3 % Normal 11.6-14.6 [facility] Comment on above: Order Comment: 109-1 Performed By: #### L 100.0100 ####[facility] [address] [place], [address] Hematocrit (Bld) [Volume fraction] 39.3 % Low 40-54 [facility] Comment on above: Order Comment: 109-1 Performed By: #### L 100.0100 ####[facility] [address] [place], [address] Hemoglobin (Bld) [Mass/Vol] 12.8 g/dL Low 13.0-16.5 [facility] Comment on above: Order Comment: 109-1 Performed By: #### L 100.0100 ####[facility] [address] [place], [address] IG% 0.200 Normal 0.0-0.9 [facility] Comment on above: Order Comment: 109-1 Result Comment: IG% - Immature Granulocytes (promyelocytes, myelocytes andmetamyelocytes) > 1% indicates that a LEFT SHIFT is Present. Performed By: #### L 100.0100 ####[facility] [address] [place], [address] Lymphocytes/100 WBC (Bld) 24.5 % Normal 19-41 [facility] Comment on above: Order Comment: 109-1 Performed By: #### L 100.0100 ####[facility] [address] [place], [address] MCH (RBC) [Entitic mass] 29.6 pg Normal 27.0-32.0 [facility] Comment on above: Order Comment: 109-1 Performed By: #### L 100.0100 ####[facility] [address] [place], [address] MCHC (RBC) [Mass/Vol] 32.6 g/dL Normal 32-36 [facility] Comment on above: Order Comment: 109-1 Performed By: #### L 100.0100 ####[facility] [address] [place], [address] MCV (RBC) [Entitic vol] 90.8 fL Normal 80-94 [facility] Comment on above: Order Comment: 109-1 Performed By: #### L 100.0100 ####[facility] [address] [place], [address] Monocytes/100 WBC (Bld) 8.8 % Normal 0-10 [facility] Comment on above: Order Comment: 109-1 Performed By: #### L 100.0100 ####[facility] [address] [place], [address] Neutrophils/100 WBC (Bld) 62.0 % Normal 47-70 [facility] Comment on above: Order Comment: 109-1 Performed By: #### L 100.0100 ####[facility] [address] [place], [address] Nucleated RBC (Bld) [#/Vol] 0 10*3/uL Normal 0-5 [facility] Comment on above: Order Comment: 109-1 Performed By: #### L 100.0100 ####[facility] [address] [place], [address] Platelet mean volume (Bld) [Entitic vol] 10.9 fL Normal 6.2-12.0 [facility] Comment on above: Order Comment: 109-1 Performed By: #### L 100.0100 ####[facility] [address] [place], [address] Platelets (Bld) [#/Vol] 218 10*3/uL Normal 150-450 [facility] Comment on above: Order Comment: 109-1 Performed By: #### L 100.0100 ####[facility] [address] [place], [address] RBC (Bld) [#/Vol] 4.33 10*6/uL Low 4.6-6.2 [facility] Comment on above: Order Comment: 109-1 Performed By: #### L 100.0100 ####[facility] [address] [place], [address] RDW SD 44.0 fl High 35.1-43.9 [facility] Comment on above: Order Comment: 109-1 Performed By: #### L 100.0100 ####[facility] [address], [address] WBC (Bld) [#/Vol] 8.2 10*3/uL Normal 4.4-11.0 [facility] Comment on above: Order Comment: 109-1 Performed By: #### L 100.0100 ####[facility] [address] [place], [address] Eosinophil percentageOrdered By: Renard Burgos on 06-17-2024 Eosinophils/100 WBC (Bld) 3.4 % 0-5 [facility] Erythrocyte distribution wid th ratioOrdered By: Renard Burgos on 06-17-2024 Erythrocyte distribution width (RBC) [Ratio] 13.3 % 11.6-14.6 [facility] Erythrocyte distribution wid th standard deviationOrdered By: Renard uBrgos on 06-17-2024 Erythrocyte distribution width (RBC) [Entitic vol] 44.0 fL High 35.1-43.9 [facility] Erythrocyte distribution width (RBC) [Ratio] 44.0 fl High 35.1-43.9 [facility] Hematocrit Auto (Bld) [Volum e fraction]Ordered By: Renard Burgos on 06-17-2024 Hematocrit (Bld) [Volume fraction] 39.3 % Low 40-54 [facility] Hemoglobin measurementOrdere d By: Renard Burgos on 06-17-2024 Hemoglobin (Bld) [Mass/Vol] 12.8 g/dL Low 13.0-16.5 [facility] Immature granulocytes/100 WB C Auto (Bld)Ordered By: Renard Burgos on 06-17-2024 Immature granulocytes/100 WBC (Bld) 0.200 % 0.0-0.9 [facility] Comment on above: IG% - Immature Granu locytes (promyelocytes, myelocytes and metamyelocytes) > 1% indicates that a LEFT SHIFT is Present. Lymphocytes Auto (Unsp spec) [#/Vol]Ordered By: Renard Burgos on 06-17-2024 Lymphocytes (Bld) [#/Vol] 2.00 10*3/uL 0.83-4.51 [facility] Lymphocytes/100 WBC Auto (Un sp spec)Ordered By: Renard Burgos on 06-17-2024 Lymphocytes/100 WBC (Bld) 24.5 % 19-41 [facility] MCV (mean corpuscular volume ) determinationOrdered By: Renard Burgos on 06-17-2024 MCV (RBC) [Entitic vol] 90.8 fL 80-94 [facility] Mean corpuscular hemoglobin (MCH) determinationOrdered By: Renard Burgos on 06-17-2024 MCH (RBC) [Entitic mass] 29.6 pg 27.0-32.0 [facility] Mean corpuscular hemoglobin concentration (MCHC) determinationOrdered By: Renard Burgos on 06-17-2024 MCHC (RBC) [Mass/Vol] 32.6 g/dL 32-36 [facility] Mean platelet volume determi nationOrdered By: Renard Burgos on 06-17-2024 Platelet mean volume (Bld) [Entitic vol] 10.9 fL 6.2-12.0 [facility] Monocyte percentageOrdered B y: Renard Burgos on 06-17-2024 Monocytes/100 WBC (Bld) 8.8 % 0-10 [facility] Neutrophil percentageOrdered By: Renard Burgos on 06-17-2024 Neutrophils/100 WBC (Bld) 62.0 % 47-70 [facility] Nucleated red blood cell per centageOrdered By: Renard Burgos on 06-17-2024 Nucleated RBC/100 WBC (Bld) [Ratio] 0 % 0-5 [facility] Platelet countOrdered By: Garrick Bhatt on 06-17-2024 Platelets (Bld) [#/Vol] 218 10*3/uL 150-450 [facility] RBC Auto (Bld) [#/Vol]Ordere d By: Renard Burgos on 06-17-2024 RBC (Bld) [#/Vol] 4.33 10*6/uL Low 4.6-6.2 [facility] White blood cell (WBC) count Ordered By: Renard Burgos on 06-17-2024 WBC (Bld) [#/Vol] 8.2 10*3/uL 4.4-11.0 [facility] Absolute lymphocyte countOrd ered By: Renard Burgos on 06-10-2024 Lymphocytes Auto (Unsp spec) [#/Vol] 2.38 10*3/uL 0.83-4.51 [facility] Absolute neutrophil countOrd ered By: Renard Burgos on 06-10-2024 Neutrophils (Bld) [#/Vol] 5.3 10*3/uL 2.0-7.7 [facility] Automated lymphocyte count a s percentage of total leukocytesOrdered By: Renard Burogs on 06-10-2024 Lymphocytes/100 WBC Auto (Unsp spec) 27.5 % 19-41 [facility] Basophil percentageOrdered B y: Renard Burgos on 06-10-2024 Basophils/100 WBC (Bld) 0.7 % 0-1 [facility] CBC W/Diff, Automatedon 06-01-2024 Absolute Lymph 2.38 X10 3/uL Normal 0.83-4.51 [facility] Comment on above: Order Comment: 109.1 Performed By: #### L 100.0100 ####[facility] [address] [place], [address] Absolute Neut 5.3 X10 3/uL Normal 2.0-7.7 [facility] Comment on above: Order Comment: 109.1 Performed By: #### L 100.0100 ####[facility] [address] [place], [address] Basophils/100 WBC (Bld) 0.7 % Normal 0-1 [facility] Comment on above: Order Comment: 109.1 Performed By: #### L 100.0100 ####[facility] [address] [place], [address] Eosinophils/100 WBC (Bld) 0.7 % Normal 0-5 [facility] Comment on above: Order Comment: 109.1 Performed By: #### L 100.0100 ####[facility] [address] [place], [address] Erythrocyte distribution width (RBC) [Ratio] 13.1 % Normal 11.6-14.6 [facility] Comment on above: Order Comment: 109.1 Performed By: #### L 100.0100 ####[facility] [address] [place], [address] Hematocrit (Bld) [Volume fraction] 41.1 % Normal 40-54 [facility] Comment on above: Order Comment: 109.1 Performed By: #### L 100.0100 ####[facility] [address] [place], [address] Hemoglobin (Bld) [Mass/Vol] 13.5 g/dL Normal 13.0-16.5 [facility] Comment on above: Order Comment: 109.1 Performed By: #### L 100.0100 ####[facility] [address] [place], [address] IG% 0.500 Normal 0.0-0.9 [facility] Comment on above: Order Comment: 109.1 Result Comment: IG% - Immature Granulocytes (promyelocytes, myelocytes andmetamyelocytes) > 1% indicates that a LEFT SHIFT is Present. Performed By: #### L 100.0100 ####[facility] [address] [place], [address] Lymphocytes/100 WBC (Bld) 27.5 % Normal 19-41 [facility] Comment on above: Order Comment: 109.1 Performed By: #### L 100.0100 ####[facility] [address] [place], [address] MCH (RBC) [Entitic mass] 30.1 pg Normal 27.0-32.0 [facility] Comment on above: Order Comment: 109.1 Performed By: #### L 100.0100 ####[facility] [address], [address] MCHC (RBC) [Mass/Vol] 32.8 g/dL Normal 32-36 [facility] Comment on above: Order Comment: 109.1 Performed By: #### L 100.0100 ####[facility] [address] [place], [address] MCV (RBC) [Entitic vol] 91.7 fL Normal 80-94 [facility] Comment on above: Order Comment: 109.1 Performed By: #### L 100.0100 ####[facility] [address] [place], [address] Monocytes/100 WBC (Bld) 9.6 % Normal 0-10 [facility] Comment on above: Order Comment: 109.1 Performed By: #### L 100.0100 ####[facility] [address] [place], [address] Neutrophils/100 WBC (Bld) 61.0 % Normal 47-70 [facility] Comment on above: Order Comment: 109.1 Performed By: #### L 100.0100 ####[facility] [address] [place], [address] Nucleated RBC (Bld) [#/Vol] 0 10*3/uL Normal 0-5 [facility] Comment on above: Order Comment: 109.1 Performed By: #### L 100.0100 ####[facility] [address] [place], [address] Platelet mean volume (Bld) [Entitic vol] 11.0 fL Normal 6.2-12.0 [facility] Comment on above: Order Comment: 109.1 Performed By: #### L 100.0100 ####[facility] [address] [place], [address] Platelets (Bld) [#/Vol] 261 10*3/uL Normal 150-450 [facility] Comment on above: Order Comment: 109.1 Performed By: #### L 100.0100 ####[facility] [address] [place], [address] RBC (Bld) [#/Vol] 4.48 10*6/uL Low 4.6-6.2 [facility] Comment on above: Order Comment: 109.1 Performed By: #### L 100.0100 ####[facility] [address] [place], [address] RDW SD 43.2 fl Normal 35.1-43.9 [facility] Comment on above: Order Comment: 109.1 Performed By: #### L 100.0100 ####[facility] [address] [place], [address] WBC (Bld) [#/Vol] 8.6 10*3/uL Normal 4.4-11.0 [facility] Comment on above: Order Comment: 109.1 Performed By: #### L 100.0100 ####[facility] [address] [place], [address] Eosinophil percentageOrdered By: Renard Burgos on 06-10-2024 Eosinophils/100 WBC (Bld) 0.7 % 0-5 [facility] Erythrocyte distribution wid th ratioOrdered By: Renard Burgos on 06-10-2024 Erythrocyte distribution width (RBC) [Ratio] 13.1 % 11.6-14.6 [facility] Erythrocyte distribution wid th standard deviationOrdered By: Renard Burgos on 06-10-2024 Erythrocyte distribution width (RBC) [Entitic vol] 43.2 fL 35.1-43.9 [facility] Erythrocyte distribution width (RBC) [Ratio] 43.2 fl 35.1-43.9 [facility] Hematocrit Auto (Bld) [Volum e fraction]Ordered By: Renard Burgos on 06-10-2024 Hematocrit (Bld) [Volume fraction] 41.1 % 40-54 [facility] Hemoglobin measurementOrdere d By: Renard Burgos on 06-10-2024 Hemoglobin (Bld) [Mass/Vol] 13.5 g/dL 13.0-16.5 [facility] Immature granulocytes/100 WB C Auto (Bld)Ordered By: Renard Burgos on 06-10-2024 Immature granulocytes/100 WBC (Bld) 0.500 % 0.0-0.9 [facility] Comment on above: IG% - Immature Granu locytes (promyelocytes, myelocytes and metamyelocytes) > 1% indicates that a LEFT SHIFT is Present. Lymphocytes Auto (Unsp spec) [#/Vol]Ordered By: Renard Burgos on 06-10-2024 Lymphocytes (Bld) [#/Vol] 2.38 10*3/uL 0.83-4.51 [facility] Lymphocytes/100 WBC Auto (Un sp spec)Ordered By: Renard Burgos on 06-10-2024 Lymphocytes/100 WBC (Bld) 27.5 % 19-41 [facility] MCV (mean corpuscular volume ) determinationOrdered By: Renard Burgos on 06-10-2024 MCV (RBC) [Entitic vol] 91.7 fL 80-94 [facility] Mean corpuscular hemoglobin (MCH) determinationOrdered By: Renard Burgos on 06-10-2024 MCH (RBC) [Entitic mass] 30.1 pg 27.0-32.0 [facility] Mean corpuscular hemoglobin concentration (MCHC) determinationOrdered By: Renard Burgos on 06-10-2024 MCHC (RBC) [Mass/Vol] 32.8 g/dL 32-36 [facility] Mean platelet volume determi nationOrdered By: Renard Burgos on 06-10-2024 Platelet mean volume (Bld) [Entitic vol] 11.0 fL 6.2-12.0 [facility] Monocyte percentageOrdered B y: Renard Burgos on 06-10-2024 Monocytes/100 WBC (Bld) 9.6 % 0-10 [facility] Neutrophil percentageOrdered By: Renard Burgos on 06-10-2024 Neutrophils/100 WBC (Bld) 61.0 % 47-70 [facility] Nucleated red blood cell per centageOrdered By: Renard Burgos on 06-10-2024 Nucleated RBC/100 WBC (Bld) [Ratio] 0 % 0-5 [facility] Platelet countOrdered By: Garrick Bhatt on 06-10-2024 Platelets (Bld) [#/Vol] 261 10*3/uL 150-450 [facility] RBC Auto (Bld) [#/Vol]Ordere d By: Renadr Burgos on 06-10-2024 RBC (Bld) [#/Vol] 4.48 10*6/uL Low 4.6-6.2 [facility] Urine Cultureon 06-10-2024 URC Normal [facility] Comment on above: Performed By: #### M 100.2200, L400.0001 ####[facility] [address] [facility] [address] White blood cell (WBC) count Ordered By: Renard Burgos on 06-10-2024 WBC (Bld) [#/Vol] 8.6 10*3/uL 4.4-11.0 [facility] Bilirubin Test strip Ql (U)O rdered By: Renard Burgos on 06-07-2024 Bilirubin Ql (U) Negative Negative [facility] CBC-Complete Blood Cnt No Di ffon 06-07-2024 Erythrocyte distribution width (RBC) [Ratio] 13.0 % Normal 11.6-14.6 [facility] Comment on above: Order Comment: 109-1 Performed By: #### L 100.0500 ####[facility] [address] [place], [address] Hematocrit (Bld) [Volume fraction] 39.3 % Low 40-54 [facility] Comment on above: Order Comment: 109-1 Performed By: #### L 100.0500 ####[facility] [address] [place], [address] Hemoglobin (Bld) [Mass/Vol] 13.0 g/dL Normal 13.0-16.5 [facility] Comment on above: Order Comment: 109-1 Performed By: #### L 100.0500 ####[facility] [address] [place], [address] MCH (RBC) [Entitic mass] 30.2 pg Normal 27.0-32.0 [facility] Comment on above: Order Comment: 109-1 Performed By: #### L 100.0500 ####[facility] [address] [place], [address] MCHC (RBC) [Mass/Vol] 33.1 g/dL Normal 32-36 [facility] Comment on above: Order Comment: 109-1 Performed By: #### L 100.0500 ####[facility] [address] [place], [address] MCV (RBC) [Entitic vol] 91.2 fL Normal 80-94 [facility] Comment on above: Order Comment: 109-1 Performed By: #### L 100.0500 ####[facility] [address] [place], [address] Platelet mean volume (Bld) [Entitic vol] 10.8 fL Normal 6.2-12.0 [facility] Comment on above: Order Comment: 109-1 Performed By: #### L 100.0500 ####[facility] [address] [place], [address] Platelets (Bld) [#/Vol] 251 10*3/uL Normal 150-450 [facility] Comment on above: Order Comment: 109-1 Performed By: #### L 100.0500 ####[facility] [address] [place], [address] RBC (Bld) [#/Vol] 4.31 10*6/uL Low 4.6-6.2 [facility] Comment on above: Order Comment: 109-1 Performed By: #### L 100.0500 ####[facility] [address] [place], [address] RDW SD 43.7 fl Normal 35.1-43.9 [facility] Comment on above: Order Comment: 109-1 Performed By: #### L 100.0500 ####[facility] [address] [place], [place], [address] WBC (Bld) [#/Vol] 9.9 10*3/uL Normal 4.4-11.0 [facility] Comment on above: Order Comment: 109-1 Performed By: #### L 100.0500 ####[facility] [address] [place], [address] Epithelial cells.squamous LM Ql (Urine sed)Ordered By: Renard Burgos on 06-07-2024 Epithelial cells.squamous LM.HPF (Urine sed) [#/Area] 0 /[HPF] 0-5 [facility] Erythrocyte distribution wid th ratioOrdered By: Renard Burgos on 06-07-2024 Erythrocyte distribution width (RBC) [Ratio] 13.0 % 11.6-14.6 [facility] Erythrocyte distribution wid th standard deviationOrdered By: Renard Burgos on 06-07-2024 Erythrocyte distribution width (RBC) [Entitic vol] 43.7 fL 35.1-43.9 [facility] Erythrocyte distribution width (RBC) [Ratio] 43.7 fl 35.1-43.9 [facility] Glucose Ql (U)Ordered By: Garrick Bhatt on 06-07-2024 Urine Glucose (UA) Normal mg/dl Normal [facility] Hematocrit Auto (Bld) [Volum e fraction]Ordered By: Renard Burgos on 06-07-2024 Hematocrit (Bld) [Volume fraction] 39.3 % Low 40-54 [facility] Hemoglobin measurementOrdere d By: Renard Burgos on 06-07-2024 Hemoglobin (Bld) [Mass/Vol] 13.0 g/dL 13.0-16.5 [facility] Ketones Test strip Ql (U)Ord ered By: Renard Burgos on 06-07-2024 Ketones Ql (U) Negative Negative [facility] MCV (mean corpuscular volume ) determinationOrdered By: Renard Burgos on 06-07-2024 MCV (RBC) [Entitic vol] 91.2 fL 80-94 [facility] Mean corpuscular hemoglobin (MCH) determinationOrdered By: Renard Burgos on 06-07-2024 MCH (RBC) [Entitic mass] 30.2 pg 27.0-32.0 [facility] Mean corpuscular hemoglobin concentration (MCHC) determinationOrdered By: Renard Burgos on 06-07-2024 MCHC (RBC) [Mass/Vol] 33.1 g/dL 32-36 [facility] Mean platelet volume determi nationOrdered By: Renard Burgos on 06-07-2024 Platelet mean volume (Bld) [Entitic vol] 10.8 fL 6.2-12.0 [facility] Microscopic analysis of urin e for red blood cells (RBC)Ordered By: Renard Burgos on 06-07-2024 Microscopic analysis of urine for red blood cells (RBC) 0 SEEN /hpf 0-5 [facility] Urine RBC 0 SEEN /hpf 0-5 [facility] Mucus LM Ql (Urine sed)Order ed By: Renard Burgos on 06-07-2024 Mucus Ql (Urine sed) 0 SEEN /hpf [facility] Nitrite Test strip Ql (U)Ord ered By: Renard Burgos on 06-07-2024 Nitrite Ql (U) Negative Negative [facility] Platelet countOrdered By: Garrick Bhatt on 06-07-2024 Platelets (Bld) [#/Vol] 251 10*3/uL 150-450 [facility] Protein Test strip Ql (U)Ord ered By: Renard Burgos on 06-07-2024 Protein Ql (U) 15 mg/dl High Negative [facility] RBC Auto (Bld) [#/Vol]Ordere d By: Renard Burgos on 06-07-2024 RBC (Bld) [#/Vol] 4.31 10*6/uL Low 4.6-6.2 [facility] Squamous epithelial cells de tection in urine sediment by light microscopyOrdered By: Renard Burgos on 06-07-2024 Epithelial cells.squamous LM Ql (Urine sed) 0-5 SEEN /hpf 0-5 [facility] Urinalysis, Completeon 02-07 -2025 Mucus Ql (Urine sed) 0 SEEN Normal [facility] Comment on above: Order Comment: CLEAN CATCH Performed By: #### M 100.2200, L400.0001 ####[facility] [address] [place], [address] Urine blood detectionOrdered By: Renard Burgos on 06-07-2024 Urine Occult Blood Negative Negative [facility] Urine clarityOrdered By: Lyubov Burgos on 06-07-2024 Clarity (U) Clear Clear [facility] Urine color determinationOrd ered By: Renard Burgos on 06-07-2024 Color (U) Yellow Yellow [facility] Urine cultureOrdered By: Lyubov Burgos on 06-07-2024 Bacteria identified Cx Nom (U) Pseudomonas aeruginosa Abnormal [facility] Bacteria identified Cx Nom (U) Pseudomonas aeruginosa Abnormal [facility] Urine glucose detectionOrder ed By: Renard Burgos on 06-07-2024 Glucose Ql (U) Normal mg/dl Normal [facility] Urine leukocyte esterase det ection by dipstickOrdered By: Renard Burgos on 06-07-2024 Leukocyte esterase Test strip Ql (U) Negative Negative [facility] Urine pHOrdered By: Renard ocampo on 06-07-2024 pH (U) 7.0 [pH] 5.0 - 8.0 [facility] Urine sediment bacteria coun t by microscopy (number/high power field)Ordered By: Renard Burgos on 06-07-2024 Bacteria LM.HPF (Urine sed) [#/Area] 2 /[HPF] None Seen [facility] Urine sediment yeast count b y microscopy (number/high powered field)Ordered By: Renard Burgos on 06-07-2024 Yeast LM.HPF (Urine sed) [#/Area] 1 /[HPF] None Seen [facility] Urine specific gravity measu rementOrdered By: Renard Burgos on 06-07-2024 Specific gravity (U) [Rel density] 1.010 1.002-1.030 [facility] Urine urobilinogen measureme ntOrdered By: Renard Burgos on 06-07-2024 Urobilinogen Ql (U) 1 mg/dl High Normal [facility] Urobilinogen Ql (U)Ordered B y: Renard Burgos on 06-07-2024 Urobilinogen (U) [Mass/Vol] 1 mg/dL High Normal [facility] White blood cell (WBC) count Ordered By: Renard Burgos on 06-07-2024 WBC (Bld) [#/Vol] 9.9 10*3/uL 4.4-11.0 [facility] White blood cell countOrdere d By: Renard Burgos on 06-07-2024 Urine WBC 0-5 SEEN /hpf 0-5 [facility] White blood cell count 0-5 SEEN /hpf 0-5 [facility] Yeast LM.HPF (Urine sed) [#/ Area]Ordered By: Renard Burgos on 06-07-2024 Urine Yeast 1+ /hpf None Seen [facility] Absolute lymphocyte countOrd ered By: Renard Burgos on 06-03-2024 Lymphocytes Auto (Unsp spec) [#/Vol] 1.94 10*3/uL 0.83-4.51 [facility] Absolute neutrophil countOrd ered By: Renard Burgos on 06-03-2024 Neutrophils (Bld) [#/Vol] 9.5 10*3/uL High 2.0-7.7 [facility] Automated lymphocyte count a s percentage of total leukocytesOrdered By: Renard Burgos on 06-03-2024 Lymphocytes/100 WBC Auto (Unsp spec) 15.7 % Low 19-41 [facility] Basophil percentageOrdered B y: Renard Burgos on 06-03-2024 Basophils/100 WBC (Bld) 0.5 % 0-1 [facility] CBC W/Diff, Automatedon Absolute Lymph 1.94 X10 3/uL Normal 0.83-4.51 [facility] Comment on above: Order Comment: 109-1 Performed By: #### L 100.0100 ####[facility] [address] [place], [place], [address] Absolute Neut 9.5 X10 3/uL High 2.0-7.7 [facility] Comment on above: Order Comment: 109-1 Performed By: #### L 100.0100 ####[facility] [address] [place], [address] Basophils/100 WBC (Bld) 0.5 % Normal 0-1 [facility] Comment on above: Order Comment: 109-1 Performed By: #### L 100.0100 ####[facility] [address] [place], [address] Eosinophils/100 WBC (Bld) 0.3 % Normal 0-5 [facility] Comment on above: Order Comment: 109-1 Performed By: #### L 100.0100 ####[facility] [address] [place], [address] Erythrocyte distribution width (RBC) [Ratio] 13.0 % Normal 11.6-14.6 [facility] Comment on above: Order Comment: 109-1 Performed By: #### L 100.0100 ####[facility] [address] [place], [address] Hematocrit (Bld) [Volume fraction] 40.1 % Normal 40-54 [facility] Comment on above: Order Comment: 109-1 Performed By: #### L 100.0100 ####[facility] [address] [place], [address] Hemoglobin (Bld) [Mass/Vol] 13.2 g/dL Normal 13.0-16.5 [facility] Comment on above: Order Comment: 109-1 Performed By: #### L 100.0100 ####[facility] [address] [place], [address] IG% 0.400 Normal 0.0-0.9 [facility] Comment on above: Order Comment: 109-1 Result Comment: IG% - Immature Granulocytes (promyelocytes, myelocytes andmetamyelocytes) > 1% indicates that a LEFT SHIFT is Present. Performed By: #### L 100.0100 ####[facility] [address] [place], [address] Lymphocytes/100 WBC (Bld) 15.7 % Low 19-41 [facility] Comment on above: Order Comment: 109-1 Performed By: #### L 100.0100 ####[facility] [address] [place], [address] MCH (RBC) [Entitic mass] 30.1 pg Normal 27.0-32.0 [facility] Comment on above: Order Comment: 109-1 Performed By: #### L 100.0100 ####[facility] [address] [place], [address] MCHC (RBC) [Mass/Vol] 32.9 g/dL Normal 32-36 [facility] Comment on above: Order Comment: 109-1 Performed By: #### L 100.0100 ####[facility] [address] [place], [address] MCV (RBC) [Entitic vol] 91.3 fL Normal 80-94 [facility] Comment on above: Order Comment: 109-1 Performed By: #### L 100.0100 ####[facility] [address] [place], [address] Monocytes/100 WBC (Bld) 6.6 % Normal 0-10 [facility] Comment on above: Order Comment: 109-1 Performed By: #### L 100.0100 ####[facility] [address] [place], [address] Neutrophils/100 WBC (Bld) 76.5 % High 47-70 [facility] Comment on above: Order Comment: 109-1 Performed By: #### L 100.0100 ####[facility] [address] [place], [address] Nucleated RBC (Bld) [#/Vol] 0 10*3/uL Normal 0-5 [facility] Comment on above: Order Comment: 109-1 Performed By: #### L 100.0100 ####[facility] [address] [place], [address] Platelet mean volume (Bld) [Entitic vol] 11.1 fL Normal 6.2-12.0 [facility] Comment on above: Order Comment: 109-1 Performed By: #### L 100.0100 ####[facility] [address] [place], [address] Platelets (Bld) [#/Vol] 249 10*3/uL Normal 150-450 [facility] Comment on above: Order Comment: 109-1 Performed By: #### L 100.0100 ####[facility] [address] [place], [address] RBC (Bld) [#/Vol] 4.39 10*6/uL Low 4.6-6.2 [facility] Comment on above: Order Comment: 109-1 Performed By: #### L 100.0100 ####[facility] [address] [place], [address] RDW SD 42.8 fl Normal 35.1-43.9 [facility] Comment on above: Order Comment: 109-1 Performed By: #### L 100.0100 ####[facility] [address] [place], [address] WBC (Bld) [#/Vol] 12.4 10*3/uL High 4.4-11.0 [facility] Comment on above: Order Comment: 109-1 Performed By: #### L 100.0100 ####[facility] [address] [place], [address] Eosinophil percentageOrdered By: Renard Burgos on 06-03-2024 Eosinophils/100 WBC (Bld) 0.3 % 0-5 [facility] Erythrocyte distribution wid th ratioOrdered By: Renard Burgos on 06-03-2024 Erythrocyte distribution width (RBC) [Ratio] 13.0 % 11.6-14.6 [facility] Erythrocyte distribution wid th standard deviationOrdered By: Renard Burgos on 06-03-2024 Erythrocyte distribution width (RBC) [Entitic vol] 42.8 fL 35.1-43.9 [facility] Erythrocyte distribution width (RBC) [Ratio] 42.8 fl 35.1-43.9 [facility] Hematocrit Auto (Bld) [Volum e fraction]Ordered By: Renard Burgos on 06-03-2024 Hematocrit (Bld) [Volume fraction] 40.1 % 40-54 [facility] Hemoglobin measurementOrdere d By: Renard Burgos on 06-03-2024 Hemoglobin (Bld) [Mass/Vol] 13.2 g/dL 13.0-16.5 [facility] Immature granulocytes/100 WB C Auto (Bld)Ordered By: Renard Burgos on 06-03-2024 Immature granulocytes/100 WBC (Bld) 0.400 % 0.0-0.9 [facility] Comment on above: IG% - Immature Granu locytes (promyelocytes, myelocytes and metamyelocytes) > 1% indicates that a LEFT SHIFT is Present. Lymphocytes Auto (Unsp spec) [#/Vol]Ordered By: Renard Burgos on 06-03-2024 Lymphocytes (Bld) [#/Vol] 1.94 10*3/uL 0.83-4.51 [facility] Lymphocytes/100 WBC Auto (Un sp spec)Ordered By: Renard Burgos on 06-03-2024 Lymphocytes/100 WBC (Bld) 15.7 % Low 19-41 [facility] MCV (mean corpuscular volume ) determinationOrdered By: Renard Burgos on 06-03-2024 MCV (RBC) [Entitic vol] 91.3 fL 80-94 [facility] Mean corpuscular hemoglobin (MCH) determinationOrdered By: Renard Burgos on 06-03-2024 MCH (RBC) [Entitic mass] 30.1 pg 27.0-32.0 [facility] Mean corpuscular hemoglobin concentration (MCHC) determinationOrdered By: Renard Burgos on 06-03-2024 MCHC (RBC) [Mass/Vol] 32.9 g/dL 32-36 [facility] Mean platelet volume determi nationOrdered By: Renard Burgos on 06-03-2024 Platelet mean volume (Bld) [Entitic vol] 11.1 fL 6.2-12.0 [facility] Monocyte percentageOrdered B y: Renard Burgos on 06-03-2024 Monocytes/100 WBC (Bld) 6.6 % 0-10 [facility] Neutrophil percentageOrdered By: Renard Burgos on 06-03-2024 Neutrophils/100 WBC (Bld) 76.5 % High 47-70 [facility] Nucleated red blood cell per centageOrdered By: Renard Burgos on 06-03-2024 Nucleated RBC/100 WBC (Bld) [Ratio] 0 % 0-5 [facility] Platelet countOrdered By: Garrick Bhatt on 06-03-2024 Platelets (Bld) [#/Vol] 249 10*3/uL 150-450 [facility] RBC Auto (Bld) [#/Vol]Ordere d By: Renard Burgos on 06-03-2024 RBC (Bld) [#/Vol] 4.39 10*6/uL Low 4.6-6.2 [facility] White blood cell (WBC) count Ordered By: Renard Burgos on 06-03-2024 WBC (Bld) [#/Vol] 12.4 10*3/uL High 4.4-11.0 [facility] Absolute lymphocyte countOrd ered By: Renard Burgos on 05-27-2024 Lymphocytes Auto (Unsp spec) [#/Vol] 1.81 10*3/uL 0.83-4.51 [facility] Absolute neutrophil countOrd ered By: Renard Burgos on 05-27-2024 Neutrophils (Bld) [#/Vol] 5.0 10*3/uL 2.0-7.7 [facility] Automated lymphocyte count a s percentage of total leukocytesOrdered By: Renard Burgos on 05-27-2024 Lymphocytes/100 WBC Auto (Unsp spec) 24.4 % 19-41 [facility] Basophil percentageOrdered B y: Renard Burgos on 05-27-2024 Basophils/100 WBC (Bld) 0.5 % 0-1 [facility] CBC W/Diff, Automatedon 01-2 Absolute Lymph 1.81 X10 3/uL Normal 0.83-4.51 [facility] Comment on above: Order Comment: 109.1 Performed By: #### L 100.0100 ####[facility] [address], [address] Absolute Neut 5.0 X10 3/uL Normal 2.0-7.7 [facility] Comment on above: Order Comment: 109.1 Performed By: #### L 100.0100 ####[facility] [address] [place], [address] Basophils/100 WBC (Bld) 0.5 % Normal 0-1 [facility] Comment on above: Order Comment: 109.1 Performed By: #### L 100.0100 ####[facility] [address], [address] Eosinophils/100 WBC (Bld) 0.5 % Normal 0-5 [facility] Comment on above: Order Comment: 109.1 Performed By: #### L 100.0100 ####[facility] [address], [address] Erythrocyte distribution width (RBC) [Ratio] 12.8 % Normal 11.6-14.6 [facility] Comment on above: Order Comment: 109.1 Performed By: #### L 100.0100 ####[facility] [address] [place], [address] Hematocrit (Bld) [Volume fraction] 39.8 % Low 40-54 [facility] Comment on above: Order Comment: 109.1 Performed By: #### L 100.0100 ####[facility] [address] [place], [address] Hemoglobin (Bld) [Mass/Vol] 13.2 g/dL Normal 13.0-16.5 [facility] Comment on above: Order Comment: 109.1 Performed By: #### L 100.0100 ####[facility] [address] [place], [address] IG% 0.400 Normal 0.0-0.9 [facility] Comment on above: Order Comment: 109.1 Result Comment: IG% - Immature Granulocytes (promyelocytes, myelocytes andmetamyelocytes) > 1% indicates that a LEFT SHIFT is Present. Performed By: #### L 100.0100 ####[facility] [address] [place], [address] Lymphocytes/100 WBC (Bld) 24.4 % Normal 19-41 [facility] Comment on above: Order Comment: 109.1 Performed By: #### L 100.0100 ####[facility] [address] [place], [address] MCH (RBC) [Entitic mass] 30.2 pg Normal 27.0-32.0 [facility] Comment on above: Order Comment: 109.1 Performed By: #### L 100.0100 ####[facility] [address] [place], [address] MCHC (RBC) [Mass/Vol] 33.2 g/dL Normal 32-36 [facility] Comment on above: Order Comment: 109.1 Performed By: #### L 100.0100 ####[facility] [address] [place], [address] MCV (RBC) [Entitic vol] 91.1 fL Normal 80-94 [facility] Comment on above: Order Comment: 109.1 Performed By: #### L 100.0100 ####[facility] [address] [place], [address] Monocytes/100 WBC (Bld) 7.0 % Normal 0-10 [facility] Comment on above: Order Comment: 109.1 Performed By: #### L 100.0100 ####[facility] [address] [place], [address] Neutrophils/100 WBC (Bld) 67.2 % Normal 47-70 [facility] Comment on above: Order Comment: 109.1 Performed By: #### L 100.0100 ####[facility] [address] [place], [address] Nucleated RBC (Bld) [#/Vol] 0 10*3/uL Normal 0-5 [facility] Comment on above: Order Comment: 109.1 Performed By: #### L 100.0100 ####[facility] [address] [place], [address] Platelet mean volume (Bld) [Entitic vol] 10.3 fL Normal 6.2-12.0 [facility] Comment on above: Order Comment: 109.1 Performed By: #### L 100.0100 ####[facility] [address] [place], [address] Platelets (Bld) [#/Vol] 239 10*3/uL Normal 150-450 [facility] Comment on above: Order Comment: 109.1 Performed By: #### L 100.0100 ####[facility] [address] [place], [address] RBC (Bld) [#/Vol] 4.37 10*6/uL Low 4.6-6.2 [facility] Comment on above: Order Comment: 109.1 Performed By: #### L 100.0100 ####[facility] [address] [place], [address] RDW SD 42.5 fl Normal 35.1-43.9 [facility] Comment on above: Order Comment: 109.1 Performed By: #### L 100.0100 ####[facility] [address] [place], [address] WBC (Bld) [#/Vol] 7.4 10*3/uL Normal 4.4-11.0 [facility] Comment on above: Order Comment: 109.1 Performed By: #### L 100.0100 ####[facility] [address] [place], [address] Eosinophil percentageOrdered By: Renard Burgos on 05-27-2024 Eosinophils/100 WBC (Bld) 0.5 % 0-5 [facility] Erythrocyte distribution wid th ratioOrdered By: Renard Burgos on 05-27-2024 Erythrocyte distribution width (RBC) [Ratio] 12.8 % 11.6-14.6 [facility] Erythrocyte distribution wid th standard deviationOrdered By: Renard Burgos on 05-27-2024 Erythrocyte distribution width (RBC) [Entitic vol] 42.5 fL 35.1-43.9 [facility] Erythrocyte distribution width (RBC) [Ratio] 42.5 fl 35.1-43.9 [facility] Hematocrit Auto (Bld) [Volum e fraction]Ordered By: Renard Burgos on 05-27-2024 Hematocrit (Bld) [Volume fraction] 39.8 % Low 40-54 [facility] Hemoglobin measurementOrdere d By: Renard Burgos on 05-27-2024 Hemoglobin (Bld) [Mass/Vol] 13.2 g/dL 13.0-16.5 [facility] Immature granulocytes/100 WB C Auto (Bld)Ordered By: Renard Burgos on 05-27-2024 Immature granulocytes/100 WBC (Bld) 0.400 % 0.0-0.9 [facility] Comment on above: IG% - Immature Granu locytes (promyelocytes, myelocytes and metamyelocytes) > 1% indicates that a LEFT SHIFT is Present. Lymphocytes Auto (Unsp spec) [#/Vol]Ordered By: Renard Burgos on 05-27-2024 Lymphocytes (Bld) [#/Vol] 1.81 10*3/uL 0.83-4.51 [facility] Lymphocytes/100 WBC Auto (Un sp spec)Ordered By: Renard Burgos on 05-27-2024 Lymphocytes/100 WBC (Bld) 24.4 % 19-41 [facility] MCV (mean corpuscular volume ) determinationOrdered By: Renard Burgos on 05-27-2024 MCV (RBC) [Entitic vol] 91.1 fL 80-94 [facility] Mean corpuscular hemoglobin (MCH) determinationOrdered By: Renard Burgos on 05-27-2024 MCH (RBC) [Entitic mass] 30.2 pg 27.0-32.0 [facility] Mean corpuscular hemoglobin concentration (MCHC) determinationOrdered By: Renard Burgos on 05-27-2024 MCHC (RBC) [Mass/Vol] 33.2 g/dL 32-36 [facility] Mean platelet volume determi nationOrdered By: Renard Burgos on 05-27-2024 Platelet mean volume (Bld) [Entitic vol] 10.3 fL 6.2-12.0 [facility] Monocyte percentageOrdered B y: Renard Burgos on 05-27-2024 Monocytes/100 WBC (Bld) 7.0 % 0-10 [facility] Neutrophil percentageOrdered By: Renard Burgos on 05-27-2024 Neutrophils/100 WBC (Bld) 67.2 % 47-70 [facility] Nucleated red blood cell per centageOrdered By: Renard Burgos on 05-27-2024 Nucleated RBC/100 WBC (Bld) [Ratio] 0 % 0-5 [facility] Platelet countOrdered By: Garrick Bhatt on 05-27-2024 Platelets (Bld) [#/Vol] 239 10*3/uL 150-450 [facility] RBC Auto (Bld) [#/Vol]Ordere d By: Renard Burgos on 05-27-2024 RBC (Bld) [#/Vol] 4.37 10*6/uL Low 4.6-6.2 [facility] White blood cell (WBC) count Ordered By: Renard Burgos on 05-27-2024 WBC (Bld) [#/Vol] 7.4 10*3/uL 4.4-11.0 [facility] Absolute lymphocyte countOrd ered By: Renard Burgos on 05-20-2024 Lymphocytes Auto (Unsp spec) [#/Vol] 1.73 10*3/uL 0.83-4.51 [facility] Absolute neutrophil countOrd ered By: Renard Burgos on 05-20-2024 Neutrophils (Bld) [#/Vol] 7.0 10*3/uL 2.0-7.7 [facility] Automated blood erythrocyte countOrdered By: Renard Burgos on 05-20-2024 RBC (Bld) [#/Vol] 4.74 10*6/uL Normal 4.6-6.2 [facility] Comment on above: Order Comment: 109-1 Performed By: #### L 100.0100 ####[facility] [address] [place], [place], [address] Automated blood hematocrit ( percentage)Ordered By: Renard Burgos on 05-20-2024 Hematocrit (Bld) [Volume fraction] 43.6 % Normal 40-54 [facility] Comment on above: Order Comment: 109-1 Performed By: #### L 100.0100 ####[facility] [address] [place], [address] Automated lymphocyte count a s percentage of total leukocytesOrdered By: Renard Burgos on 05-20-2024 Lymphocytes/100 WBC (Bld) 17.7 % Low - [facility] Comment on above: Order Comment: 109-1 Performed By: #### L 100.0100 ####[facility] [address] [place], [address] Lymphocytes/100 WBC Auto (Unsp spec) 17.7 % Low - [facility] Basophil percentageOrdered B y: Renard Burgos on 05-20-2024 Basophils/100 WBC (Bld) 0.5 % Normal 0-1 [facility] Comment on above: Order Comment: 109-1 Performed By: #### L 100.0100 ####[facility] [address] [place], [address] CBC W/Diff, Automatedon 05-02 Absolute Lymph 1.73 X10 3/uL Normal 0.83-4.51 [facility] Comment on above: Order Comment: 109-1 Performed By: #### L 100.0100 ####[facility] [address] [place], [address] Absolute Neut 7.0 X10 3/uL Normal 2.0-7.7 [facility] Comment on above: Order Comment: 109-1 Performed By: #### L 100.0100 ####[facility] [address] [place], [address] IG% 0.500 Normal 0.0-0.9 [facility] Comment on above: Order Comment: 109-1 Result Comment: IG% - Immature Granulocytes (promyelocytes, myelocytes andmetamyelocytes) > 1% indicates that a LEFT SHIFT is Present. Performed By: #### L 100.0100 ####[facility] [address] [place], [address] Nucleated RBC (Bld) [#/Vol] 0 10*3/uL Normal 0-5 [facility] Comment on above: Order Comment: 109-1 Performed By: #### L 100.0100 ####[facility] [address] [place], [address] RDW SD 42.5 fl Normal 35.1-43.9 [facility] Comment on above: Order Comment: 109-1 Performed By: #### L 100.0100 ####[facility] [address] [place], [address] Eosinophil percentageOrdered By: Renard Burgos on 05-20-2024 Eosinophils/100 WBC (Bld) 0.5 % Normal 0-5 [facility] Comment on above: Order Comment: 109-1 Performed By: #### L 100.0100 ####[facility] [address] [place], [address] Erythrocyte distribution wid th ratioOrdered By: Renard Burgos on 05-20-2024 Erythrocyte distribution width (RBC) [Ratio] 12.6 % Normal 11.6-14.6 [facility] Comment on above: Order Comment: 109-1 Performed By: #### L 100.0100 ####[facility] [address] [place], [place], [address] Erythrocyte distribution wid th standard deviationOrdered By: Renard Burgos on 05-20-2024 Erythrocyte distribution width (RBC) [Entitic vol] 42.5 fL 35.1-43.9 [facility] Erythrocyte distribution width (RBC) [Ratio] 42.5 fl 35.1-43.9 [facility] Hemoglobin measurementOrdere d By: Renard Burgos on 05-20-2024 Hemoglobin (Bld) [Mass/Vol] 14.4 g/dL Normal 13.0-16.5 [facility] Comment on above: Order Comment: 109-1 Performed By: #### L 100.0100 ####[facility] [address] [place], [address] Immature granulocytes/100 WB C Auto (Bld)Ordered By: Renard Burgos on 05-20-2024 Immature granulocytes/100 WBC (Bld) 0.500 % 0.0-0.9 [facility] Comment on above: IG% - Immature Granu locytes (promyelocytes, myelocytes and metamyelocytes) > 1% indicates that a LEFT SHIFT is Present. Lymphocytes Auto (Unsp spec) [#/Vol]Ordered By: Renard Burgos on 05-20-2024 Lymphocytes (Bld) [#/Vol] 1.73 10*3/uL 0.83-4.51 [facility] MCV (mean corpuscular volume ) determinationOrdered By: Renard Burgos on 05-20-2024 MCV (RBC) [Entitic vol] 92.0 fL Normal 80-94 [facility] Comment on above: Order Comment: 109-1 Performed By: #### L 100.0100 ####[facility] [address] [place], [address] Mean corpuscular hemoglobin (MCH) determinationOrdered By: Renard Burgos on 05-20-2024 MCH (RBC) [Entitic mass] 30.4 pg Normal 27.0-32.0 [facility] Comment on above: Order Comment: 109-1 Performed By: #### L 100.0100 ####[facility] [address] [place], [address] Mean corpuscular hemoglobin concentration (MCHC) determinationOrdered By: Renard Burgos on 05-20-2024 MCHC (RBC) [Mass/Vol] 33.0 g/dL Normal 32-36 [facility] Comment on above: Order Comment: 109-1 Performed By: #### L 100.0100 ####[facility] [address] [place], [address] Mean platelet volume determi nationOrdered By: Renard Burgos on 05-20-2024 Platelet mean volume (Bld) [Entitic vol] 10.7 fL Normal 6.2-12.0 [facility] Comment on above: Order Comment: 109-1 Performed By: #### L 100.0100 ####[facility] [address] [place], [address] Monocyte percentageOrdered B y: Renard Burgos on 05-20-2024 Monocytes/100 WBC (Bld) 9.4 % Normal 0-10 [facility] Comment on above: Order Comment: 109-1 Performed By: #### L 100.0100 ####[facility] [address] [place], [address] Neutrophil percentageOrdered By: Renard Burgos on 05-20-2024 Neutrophils/100 WBC (Bld) 71.4 % High 47-70 [facility] Comment on above: Order Comment: 109-1 Performed By: #### L 100.0100 ####[facility] [address] [place], [address] Nucleated red blood cell per centageOrdered By: Renard Burgos on 05-20-2024 Nucleated RBC/100 WBC (Bld) [Ratio] 0 % 0-5 [facility] Platelet countOrdered By: Garrick Bhatt on 05-20-2024 Platelets (Bld) [#/Vol] 239 10*3/uL Normal 150-450 [facility] Comment on above: Order Comment: 109-1 Performed By: #### L 100.0100 ####[facility] [address] [place], [place], [address] White blood cell (WBC) count Ordered By: Renard Burgos on 05-20-2024 WBC (Bld) [#/Vol] 9.8 10*3/uL Normal 4.4-11.0 [facility] Comment on above: Order Comment: 109-1 Performed By: #### L 100.0100 ####[facility] [address] [place], [address] Absolute lymphocyte countOrd ered By: Renard Burgos on 05-13-2024 Lymphocytes Auto (Unsp spec) [#/Vol] 2.10 10*3/uL 0.83-4.51 [facility] Absolute neutrophil countOrd ered By: Renard Burgos on 05-13-2024 Neutrophils (Bld) [#/Vol] 6.2 10*3/uL 2.0-7.7 [facility] Automated lymphocyte count a s percentage of total leukocytesOrdered By: Renard Burgos on 05-13-2024 Lymphocytes/100 WBC Auto (Unsp spec) 22.8 % 19-41 [facility] Basophil percentageOrdered B y: Renard Burgos on 05-13-2024 Basophils/100 WBC (Bld) 0.5 % 0-1 [facility] CBC W/Diff, Automatedon 05-01 Absolute Lymph 2.10 X10 3/uL Normal 0.83-4.51 [facility] Comment on above: Order Comment: 109 Performed By: #### L 100.0100 ####[facility] [address] [place], [address] Absolute Neut 6.2 X10 3/uL Normal 2.0-7.7 [facility] Comment on above: Order Comment: 109 Performed By: #### L 100.0100 ####[facility] [address] [place], [address] Basophils/100 WBC (Bld) 0.5 % Normal 0-1 [facility] Comment on above: Order Comment: 109 Performed By: #### L 100.0100 ####[facility] [address] [place], [address] Eosinophils/100 WBC (Bld) 0.5 % Normal 0-5 [facility] Comment on above: Order Comment: 109 Performed By: #### L 100.0100 ####[facility] [address] [place], [address] Erythrocyte distribution width (RBC) [Ratio] 12.9 % Normal 11.6-14.6 [facility] Comment on above: Order Comment: 109 Performed By: #### L 100.0100 ####[facility] [address] [place] [place], [address] Hematocrit (Bld) [Volume fraction] 42.5 % Normal 40-54 [facility] Comment on above: Order Comment: 109 Performed By: #### L 100.0100 ####[facility] [address] [place], [address] Hemoglobin (Bld) [Mass/Vol] 14.2 g/dL Normal 13.0-16.5 [facility] Comment on above: Order Comment: 109 Performed By: #### L 100.0100 ####[facility] [address] [place], [address] IG% 0.300 Normal 0.0-0.9 [facility] Comment on above: Order Comment: 109 Result Comment: IG% - Immature Granulocytes (promyelocytes, myelocytes andmetamyelocytes) > 1% indicates that a LEFT SHIFT is Present. Performed By: #### L 100.0100 ####[facility] [address] [place], [address] Lymphocytes/100 WBC (Bld) 22.8 % Normal 19-41 [facility] Comment on above: Order Comment: 109 Performed By: #### L 100.0100 ####[facility] [address] [place], [address] MCH (RBC) [Entitic mass] 30.3 pg Normal 27.0-32.0 [facility] Comment on above: Order Comment: 109 Performed By: #### L 100.0100 ####[facility] [address] [place], [address] MCHC (RBC) [Mass/Vol] 33.4 g/dL Normal 32-36 [facility] Comment on above: Order Comment: 109 Performed By: #### L 100.0100 ####[facility] [address] [place], [address] MCV (RBC) [Entitic vol] 90.6 fL Normal 80-94 [facility] Comment on above: Order Comment: 109 Performed By: #### L 100.0100 ####[facility] [address] [place], [address] Monocytes/100 WBC (Bld) 8.7 % Normal 0-10 [facility] Comment on above: Order Comment: 109 Performed By: #### L 100.0100 ####[facility] [address] [place], [address] Neutrophils/100 WBC (Bld) 67.2 % Normal 47-70 [facility] Comment on above: Order Comment: 109 Performed By: #### L 100.0100 ####[facility] [address], [address] Nucleated RBC (Bld) [#/Vol] 0 10*3/uL Normal 0-5 [facility] Comment on above: Order Comment: 109 Performed By: #### L 100.0100 ####[facility] [address] [place], [address] Platelet mean volume (Bld) [Entitic vol] 11.1 fL Normal 6.2-12.0 [facility] Comment on above: Order Comment: 109 Performed By: #### L 100.0100 ####[facility] [address] [place], [address] Platelets (Bld) [#/Vol] 218 10*3/uL Normal 150-450 [facility] Comment on above: Order Comment: 109 Performed By: #### L 100.0100 ####[facility] [address] [place], [address] RBC (Bld) [#/Vol] 4.69 10*6/uL Normal 4.6-6.2 [facility] Comment on above: Order Comment: 109 Performed By: #### L 100.0100 ####[facility] [address] [place], [address] RDW SD 42.3 fl Normal 35.1-43.9 [facility] Comment on above: Order Comment: 109 Performed By: #### L 100.0100 ####[facility] [address] [place], [address] WBC (Bld) [#/Vol] 9.2 10*3/uL Normal 4.4-11.0 [facility] Comment on above: Order Comment: 109 Performed By: #### L 100.0100 ####[facility] [address] [place], [address] Eosinophil percentageOrdered By: Renard Burgos on 05-13-2024 Eosinophils/100 WBC (Bld) 0.5 % 0-5 [facility] Erythrocyte distribution wid th ratioOrdered By: Renard Burgos on 05-13-2024 Erythrocyte distribution width (RBC) [Ratio] 12.9 % 11.6-14.6 [facility] Erythrocyte distribution wid th standard deviationOrdered By: Renard Burgos on 05-13-2024 Erythrocyte distribution width (RBC) [Entitic vol] 42.3 fL 35.1-43.9 [facility] Erythrocyte distribution width (RBC) [Ratio] 42.3 fl 35.1-43.9 [facility] Hematocrit Auto (Bld) [Volum e fraction]Ordered By: Renard Burgos on 05-13-2024 Hematocrit (Bld) [Volume fraction] 42.5 % 40-54 [facility] Hemoglobin measurementOrdere d By: Renard Burgos on 05-13-2024 Hemoglobin (Bld) [Mass/Vol] 14.2 g/dL 13.0-16.5 [facility] Immature granulocytes/100 WB C Auto (Bld)Ordered By: Renard Burgos on 05-13-2024 Immature granulocytes/100 WBC (Bld) 0.300 % 0.0-0.9 [facility] Comment on above: IG% - Immature Granu locytes (promyelocytes, myelocytes and metamyelocytes) > 1% indicates that a LEFT SHIFT is Present. Lymphocytes Auto (Unsp spec) [#/Vol]Ordered By: Renard Burgos on 05-13-2024 Lymphocytes (Bld) [#/Vol] 2.10 10*3/uL 0.83-4.51 [facility] Lymphocytes/100 WBC Auto (Un sp spec)Ordered By: Renard Burgos on 05-13-2024 Lymphocytes/100 WBC (Bld) 22.8 % 19-41 [facility] MCV (mean corpuscular volume ) determinationOrdered By: Renard Burgos on 05-13-2024 MCV (RBC) [Entitic vol] 90.6 fL 80-94 [facility] Mean corpuscular hemoglobin (MCH) determinationOrdered By: Renard Burgos on 05-13-2024 MCH (RBC) [Entitic mass] 30.3 pg 27.0-32.0 [facility] Mean corpuscular hemoglobin concentration (MCHC) determinationOrdered By: Renard Burgos on 05-13-2024 MCHC (RBC) [Mass/Vol] 33.4 g/dL 32-36 [facility] Mean platelet volume determi nationOrdered By: Renard Burgos on 05-13-2024 Platelet mean volume (Bld) [Entitic vol] 11.1 fL 6.2-12.0 [facility] Monocyte percentageOrdered B y: Renard Burgos on 05-13-2024 Monocytes/100 WBC (Bld) 8.7 % 0-10 [facility] Neutrophil percentageOrdered By: Renard Burgos on 05-13-2024 Neutrophils/100 WBC (Bld) 67.2 % 47-70 [facility] Nucleated red blood cell per centageOrdered By: Renard Burgos on 05-13-2024 Nucleated RBC/100 WBC (Bld) [Ratio] 0 % 0-5 [facility] Platelet countOrdered By: Garrick Bhatt on 05-13-2024 Platelets (Bld) [#/Vol] 218 10*3/uL 150-450 [facility] RBC Auto (Bld) [#/Vol]Ordere d By: Renard Burgos on 05-13-2024 RBC (Bld) [#/Vol] 4.69 10*6/uL 4.6-6.2 [facility] White blood cell (WBC) count Ordered By: Renard Burgos on 05-13-2024 WBC (Bld) [#/Vol] 9.2 10*3/uL 4.4-11.0 [facility] Absolute neutrophil countOrd ered By: Renard Burgos on 05-06-2024 Neutrophils (Bld) [#/Vol] 5.9 10*3/uL 2.0-7.7 [facility] Automated blood erythrocyte countOrdered By: Renard Burgos on 05-06-2024 RBC (Bld) [#/Vol] 4.85 10*6/uL Normal 4.6-6.2 [facility] Comment on above: Order Comment: 109-1 Performed By: #### L 100.0100 ####[facility] [address] [place], [address] Automated blood hematocrit ( percentage)Ordered By: Renard Burgos on 05-06-2024 Hematocrit (Bld) [Volume fraction] 45.0 % Normal 40-54 [facility] Comment on above: Order Comment: 109-1 Performed By: #### L 100.0100 ####[facility] [address] [place], [address] Automated lymphocyte count a s percentage of total leukocytesOrdered By: Renard Burgos on 05-06-2024 Lymphocytes/100 WBC (Bld) 24.4 % Normal 19-41 [facility] Comment on above: Order Comment: 109-1 Performed By: #### L 100.0100 ####[facility] [address] [place], [address] Basophil percentageOrdered B y: Renard Burgos on 05-06-2024 Basophils/100 WBC (Bld) 0.5 % Normal 0-1 [facility] Comment on above: Order Comment: 109-1 Performed By: #### L 100.0100 ####[facility] [address] [place], [address] CBC W/Diff, Automatedon 01-0 -2024 Absolute Lymph 2.22 X10 3/uL Normal 0.83-4.51 [facility] Comment on above: Order Comment: 109-1 Performed By: #### L 100.0100 ####[facility] [address] [place], [address] Absolute Neut 5.9 X10 3/uL Normal 2.0-7.7 [facility] Comment on above: Order Comment: 109-1 Performed By: #### L 100.0100 ####[facility] [address] [place], [address] IG% 0.500 Normal 0.0-0.9 [facility] Comment on above: Order Comment: 109-1 Result Comment: IG% - Immature Granulocytes (promyelocytes, myelocytes andmetamyelocytes) > 1% indicates that a LEFT SHIFT is Present. Performed By: #### L 100.0100 ####[facility] [address] [place], [place], [phone] Nucleated RBC (Bld) [#/Vol] 0 10*3/uL Normal 0-5 [facility] Comment on above: Order Comment: 109-1 Performed By: #### L 100.0100 ####[facility] [address] [place], [place], [phone] RDW SD 43.9 fl Normal 35.1-43.9 [facility] Comment on above: Order Comment: 109-1 Performed By: #### L 100.0100 ####[facility] [address] [place], [place], [phone] Eosinophil percentageOrdered By: Renard Burgos on 05-06-2024 Eosinophils/100 WBC (Bld) 0.4 % Normal 0-5 [facility] Comment on above: Order Comment: 109-1 Performed By: #### L 100.0100 ####[facility] [address] [place], [place], [phone] Erythrocyte distribution wid th ratioOrdered By: Renard Brugos on 05-06-2024 Erythrocyte distribution width (RBC) [Ratio] 13.0 % Normal 11.6-14.6 [facility] Comment on above: Order Comment: 109-1 Performed By: #### L 100.0100 ####[facility] [address] [place], [place], [phone] Erythrocyte distribution wid th standard deviationOrdered By: Renard Burgos on 05-06-2024 Erythrocyte distribution width (RBC) [Entitic vol] 43.9 fL 35.1-43.9 [facility] Hemoglobin measurementOrdere d By: Renard Burgos on 05-06-2024 Hemoglobin (Bld) [Mass/Vol] 14.5 g/dL Normal 13.0-16.5 [facility] Comment on above: Order Comment: 109-1 Performed By: #### L 100.0100 ####[facility] [address] [place], [address] Immature granulocytes/100 WB C Auto (Bld)Ordered By: Renard Burgos on 05-06-2024 Immature granulocytes/100 WBC (Bld) 0.500 % 0.0-0.9 [facility] Comment on above: IG% - Immature Granu locytes (promyelocytes, myelocytes and metamyelocytes) > 1% indicates that a LEFT SHIFT is Present. Lymphocytes Auto (Unsp spec) [#/Vol]Ordered By: Renard Burgos on 05-06-2024 Lymphocytes (Bld) [#/Vol] 2.22 10*3/uL 0.83-4.51 [facility] MCV (mean corpuscular volume ) determinationOrdered By: Renard Burgos on 05-06-2024 MCV (RBC) [Entitic vol] 92.8 fL Normal 80-94 [facility] Comment on above: Order Comment: 109-1 Performed By: #### L 100.0100 ####[facility] [address] [place], [place], [phone] Mean corpuscular hemoglobin (MCH) determinationOrdered By: Renard Burgos on 05-06-2024 MCH (RBC) [Entitic mass] 29.9 pg Normal 27.0-32.0 [facility] Comment on above: Order Comment: 109-1 Performed By: #### L 100.0100 ####[facility] [address] [place], [address] Mean corpuscular hemoglobin concentration (MCHC) determinationOrdered By: Renard Burgos on 05-06-2024 MCHC (RBC) [Mass/Vol] 32.2 g/dL Normal 32-36 [facility] Comment on above: Order Comment: 109-1 Performed By: #### L 100.0100 ####[facility] [address] [place], [address] Mean platelet volume determi nationOrdered By: Renard Burgos on 05-06-2024 Platelet mean volume (Bld) [Entitic vol] 11.4 fL Normal 6.2-12.0 [facility] Comment on above: Order Comment: 109-1 Performed By: #### L 100.0100 ####[facility] [address] [place], [address] Monocyte percentageOrdered B y: Renard Burgos on 05-06-2024 Monocytes/100 WBC (Bld) 9.7 % Normal 0-10 [facility] Comment on above: Order Comment: 109-1 Performed By: #### L 100.0100 ####[facility] [address] [place], [address] Neutrophil percentageOrdered By: Renard Burgos on 05-06-2024 Neutrophils/100 WBC (Bld) 64.5 % Normal 47-70 [facility] Comment on above: Order Comment: 109-1 Performed By: #### L 100.0100 ####[facility] [address] [place], [address] Nucleated red blood cell per centageOrdered By: Renard Burgos on 05-06-2024 Nucleated RBC/100 WBC (Bld) [Ratio] 0 % 0-5 [facility] Platelet countOrdered By: Garrick Bhatt on 05-06-2024 Platelets (Bld) [#/Vol] 201 10*3/uL Normal 150-450 [facility] Comment on above: Order Comment: 109-1 Performed By: #### L 100.0100 ####[facility] [address] [place], [address] White blood cell (WBC) count Ordered By: Renard Burgos on 05-06-2024 WBC (Bld) [#/Vol] 9.1 10*3/uL Normal 4.4-11.0 [facility] Comment on above: Order Comment: 109-1 Performed By: #### L 100.0100 ####[facility] [address] [place], [address] 36on 05-03-2024 36 Gissel is calling to let Dr. Katsaros know that the medication he prescribed he not certified, she is going to fax the information to the office. [phone] Normal [facility] Absolute neutrophil countOrd ered By: Renard Burgos on 04-29-2024 Neutrophils (Bld) [#/Vol] 6.3 10*3/uL 2.0-7.7 [facility] Basophil percentageOrdered B y: Renard Burgos on 04-29-2024 Basophils/100 WBC (Bld) 0.4 % 0-1 [facility] CBC W/Diff, Automatedon 04-02 0-2023 Absolute Lymph 2.11 X10 3/uL Normal 0.83-4.51 [facility] Comment on above: Order Comment: 109.1 Performed By: #### L 100.0100 ####[facility] [address] [place], [address] Absolute Neut 6.3 X10 3/uL Normal 2.0-7.7 [facility] Comment on above: Order Comment: 109.1 Performed By: #### L 100.0100 ####[facility] [address] [place], [address] Basophils/100 WBC (Bld) 0.4 % Normal 0-1 [facility] Comment on above: Order Comment: 109.1 Performed By: #### L 100.0100 ####[facility] [address] [place], [address] Eosinophils/100 WBC (Bld) 0.4 % Normal 0-5 [facility] Comment on above: Order Comment: 109.1 Performed By: #### L 100.0100 ####[facility] [address] [place], [address] Erythrocyte distribution width (RBC) [Ratio] 12.6 % Normal 11.6-14.6 [facility] Comment on above: Order Comment: 109.1 Performed By: #### L 100.0100 ####[facility] [address] [place], [address] Hematocrit (Bld) [Volume fraction] 41.6 % Normal 40-54 [facility] Comment on above: Order Comment: 109.1 Performed By: #### L 100.0100 ####[facility] [address] [place], [address] Hemoglobin (Bld) [Mass/Vol] 13.7 g/dL Normal 13.0-16.5 [facility] Comment on above: Order Comment: 109.1 Performed By: #### L 100.0100 ####[facility] [address] [place], [address] IG% 0.400 Normal 0.0-0.9 [facility] Comment on above: Order Comment: 109.1 Result Comment: IG% - Immature Granulocytes (promyelocytes, myelocytes andmetamyelocytes) > 1% indicates that a LEFT SHIFT is Present. Performed By: #### L 100.0100 ####[facility] [address] [place], [address] Lymphocytes/100 WBC (Bld) 22.6 % Normal 19-41 [facility] Comment on above: Order Comment: 109.1 Performed By: #### L 100.0100 ####[facility] [address] [place], [address] MCH (RBC) [Entitic mass] 30.1 pg Normal 27.0-32.0 [facility] Comment on above: Order Comment: 109.1 Performed By: #### L 100.0100 ####[facility] [address] [place], [address] MCHC (RBC) [Mass/Vol] 32.9 g/dL Normal 32-36 [facility] Comment on above: Order Comment: 109.1 Performed By: #### L 100.0100 ####[facility] [address], [address] MCV (RBC) [Entitic vol] 91.4 fL Normal 80-94 [facility] Comment on above: Order Comment: 109.1 Performed By: #### L 100.0100 ####[facility] [address] [place], [address] Monocytes/100 WBC (Bld) 9.3 % Normal 0-10 [facility] Comment on above: Order Comment: 109.1 Performed By: #### L 100.0100 ####[facility] [address] [place], [address] Neutrophils/100 WBC (Bld) 66.9 % Normal 47-70 [facility] Comment on above: Order Comment: 109.1 Performed By: #### L 100.0100 ####[facility] [address] [place], [address] Nucleated RBC (Bld) [#/Vol] 0 10*3/uL Normal 0-5 [facility] Comment on above: Order Comment: 109.1 Performed By: #### L 100.0100 ####[facility] [address] [place], [address] Platelet mean volume (Bld) [Entitic vol] 11.0 fL Normal 6.2-12.0 [facility] Comment on above: Order Comment: 109.1 Performed By: #### L 100.0100 ####[facility] [address] [place], [address] Platelets (Bld) [#/Vol] 211 10*3/uL Normal 150-450 [facility] Comment on above: Order Comment: 109.1 Performed By: #### L 100.0100 ####[facility] [address] [place], [address] RBC (Bld) [#/Vol] 4.55 10*6/uL Low 4.6-6.2 [facility] Comment on above: Order Comment: 109.1 Performed By: #### L 100.0100 ####[facility] [address] [place], [address] RDW SD 41.5 fl Normal 35.1-43.9 [facility] Comment on above: Order Comment: 109.1 Performed By: #### L 100.0100 ####[facility] [address] [place], [address] WBC (Bld) [#/Vol] 9.4 10*3/uL Normal 4.4-11.0 [facility] Comment on above: Order Comment: 109.1 Performed By: #### L 100.0100 ####[facility] [address] [place], [address] Eosinophil percentageOrdered By: Renard Burgos on 04-29-2024 Eosinophils/100 WBC (Bld) 0.4 % 0-5 [facility] Erythrocyte distribution wid th ratioOrdered By: Renard Burgos on 04-29-2024 Erythrocyte distribution width (RBC) [Ratio] 12.6 % 11.6-14.6 [facility] Erythrocyte distribution wid th standard deviationOrdered By: Renard Burgos on 04-29-2024 Erythrocyte distribution width (RBC) [Entitic vol] 41.5 fL 35.1-43.9 [facility] Hematocrit Auto (Bld) [Volum e fraction]Ordered By: Renard Burgos on 04-29-2024 Hematocrit (Bld) [Volume fraction] 41.6 % 40-54 [facility] Hemoglobin measurementOrdere d By: Renard Burgos on 04-29-2024 Hemoglobin (Bld) [Mass/Vol] 13.7 g/dL 13.0-16.5 [facility] Immature granulocytes/100 WB C Auto (Bld)Ordered By: Renard Burgos on 04-29-2024 Immature granulocytes/100 WBC (Bld) 0.400 % 0.0-0.9 [facility] Comment on above: IG% - Immature Granu locytes (promyelocytes, myelocytes and metamyelocytes) > 1% indicates that a LEFT SHIFT is Present. Lymphocytes Auto (Unsp spec) [#/Vol]Ordered By: Renard Burgos on 04-29-2024 Lymphocytes (Bld) [#/Vol] 2.11 10*3/uL 0.83-4.51 [facility] Lymphocytes/100 WBC Auto (Un sp spec)Ordered By: Renard Burgos on 04-29-2024 Lymphocytes/100 WBC (Bld) 22.6 % 19-41 [facility] MCV (mean corpuscular volume ) determinationOrdered By: Renard Burgos on 04-29-2024 MCV (RBC) [Entitic vol] 91.4 fL 80-94 [facility] Mean corpuscular hemoglobin (MCH) determinationOrdered By: Renard Burgos on 04-29-2024 MCH (RBC) [Entitic mass] 30.1 pg 27.0-32.0 [facility] Mean corpuscular hemoglobin concentration (MCHC) determinationOrdered By: Renard Burgos on 04-29-2024 MCHC (RBC) [Mass/Vol] 32.9 g/dL 32-36 [facility] Mean platelet volume determi nationOrdered By: Renard Burgos on 04-29-2024 Platelet mean volume (Bld) [Entitic vol] 11.0 fL 6.2-12.0 [facility] Monocyte percentageOrdered B y: Renard Burgos on 04-29-2024 Monocytes/100 WBC (Bld) 9.3 % 0-10 [facility] Neutrophil percentageOrdered By: Renard Burgos on 04-29-2024 Neutrophils/100 WBC (Bld) 66.9 % 47-70 [facility] Nucleated red blood cell per centageOrdered By: Renard Burgos on 04-29-2024 Nucleated RBC/100 WBC (Bld) [Ratio] 0 % 0-5 [facility] Platelet countOrdered By: Garrick Bhatt on 04-29-2024 Platelets (Bld) [#/Vol] 211 10*3/uL 150-450 [facility] RBC Auto (Bld) [#/Vol]Ordere d By: Renard Burgos on 04-29-2024 RBC (Bld) [#/Vol] 4.55 10*6/uL Low 4.6-6.2 [facility] White blood cell (WBC) count Ordered By: Renard Burgos on 04-29-2024 WBC (Bld) [#/Vol] 9.4 10*3/uL 4.4-11.0 [facility] Absolute neutrophil countOrd ered By: Renard Burgos on 04-22-2024 Neutrophils (Bld) [#/Vol] 8.1 10*3/uL High 2.0-7.7 [facility] Basophil percentageOrdered B y: Renard Burgos on 04-22-2024 Basophils/100 WBC (Bld) 0.5 % 0-1 [facility] CBC W/Diff, Automatedon 04-01 Absolute Lymph 2.61 X10 3/uL Normal 0.83-4.51 [facility] Comment on above: Order Comment: 109-1 Performed By: #### L 100.0100 ####[facility] [address] [place], [address] Absolute Neut 8.1 X10 3/uL High 2.0-7.7 [facility] Comment on above: Order Comment: 109-1 Performed By: #### L 100.0100 ####[facility] [address] [place], [address] Basophils/100 WBC (Bld) 0.5 % Normal 0-1 [facility] Comment on above: Order Comment: 109-1 Performed By: #### L 100.0100 ####[facility] [address] [place], [address] Eosinophils/100 WBC (Bld) 0.4 % Normal 0-5 [facility] Comment on above: Order Comment: 109-1 Performed By: #### L 100.0100 ####[facility] [address] [place], [address] Erythrocyte distribution width (RBC) [Ratio] 12.6 % Normal 11.6-14.6 [facility] Comment on above: Order Comment: 109-1 Performed By: #### L 100.0100 ####[facility] [address] [place], [address] Hematocrit (Bld) [Volume fraction] 44.5 % Normal 40-54 [facility] Comment on above: Order Comment: 109-1 Performed By: #### L 100.0100 ####[facility] [address] [place], [address] Hemoglobin (Bld) [Mass/Vol] 14.3 g/dL Normal 13.0-16.5 [facility] Comment on above: Order Comment: 109-1 Performed By: #### L 100.0100 ####[facility] [address] [place], [address] IG% 0.300 Normal 0.0-0.9 [facility] Comment on above: Order Comment: 109-1 Result Comment: IG% - Immature Granulocytes (promyelocytes, myelocytes andmetamyelocytes) > 1% indicates that a LEFT SHIFT is Present. Performed By: #### L 100.0100 ####[facility] [address] [place], [address] Lymphocytes/100 WBC (Bld) 22.0 % Normal 19-41 [facility] Comment on above: Order Comment: 109-1 Performed By: #### L 100.0100 ####[facility] [address] [place], [address] MCH (RBC) [Entitic mass] 29.7 pg Normal 27.0-32.0 [facility] Comment on above: Order Comment: 109-1 Performed By: #### L 100.0100 ####[facility] [address] [place], [address] MCHC (RBC) [Mass/Vol] 32.1 g/dL Normal 32-36 [facility] Comment on above: Order Comment: 109-1 Performed By: #### L 100.0100 ####[facility] [address] [place], [address] MCV (RBC) [Entitic vol] 92.5 fL Normal 80-94 [facility] Comment on above: Order Comment: 109-1 Performed By: #### L 100.0100 ####[facility] [address] [place], [address] Monocytes/100 WBC (Bld) 8.3 % Normal 0-10 [facility] Comment on above: Order Comment: 109-1 Performed By: #### L 100.0100 ####[facility] [address] [place], [address] Neutrophils/100 WBC (Bld) 68.5 % Normal 47-70 [facility] Comment on above: Order Comment: 109-1 Performed By: #### L 100.0100 ####[facility] [address] [place], [address] Nucleated RBC (Bld) [#/Vol] 0 10*3/uL Normal 0-5 [facility] Comment on above: Order Comment: 109-1 Performed By: #### L 100.0100 ####[facility] [address] [place], [address] Platelet mean volume (Bld) [Entitic vol] 11.0 fL Normal 6.2-12.0 [facility] Comment on above: Order Comment: 109-1 Performed By: #### L 100.0100 ####[facility] [address] [place], [address] Platelets (Bld) [#/Vol] 190 10*3/uL Normal 150-450 [facility] Comment on above: Order Comment: 109-1 Performed By: #### L 100.0100 ####[facility] [address] [place], [address] RBC (Bld) [#/Vol] 4.81 10*6/uL Normal 4.6-6.2 [facility] Comment on above: Order Comment: 109-1 Performed By: #### L 100.0100 ####[facility] [address] [place], [address] RDW SD 43.0 fl Normal 35.1-43.9 [facility] Comment on above: Order Comment: 109-1 Performed By: #### L 100.0100 ####[facility] [address] [place], [address] WBC (Bld) [#/Vol] 11.9 10*3/uL High 4.4-11.0 [facility] Comment on above: Order Comment: 109-1 Performed By: #### L 100.0100 ####[facility] [address] [place], [address] Eosinophil percentageOrdered By: Renard Burgos on 04-22-2024 Eosinophils/100 WBC (Bld) 0.4 % 0-5 [facility] Erythrocyte distribution wid th ratioOrdered By: Renard Burgos on 04-22-2024 Erythrocyte distribution width (RBC) [Ratio] 12.6 % 11.6-14.6 [facility] Erythrocyte distribution wid th standard deviationOrdered By: Renard Burgos on 04-22-2024 Erythrocyte distribution width (RBC) [Entitic vol] 43.0 fL 35.1-43.9 [facility] Hematocrit Auto (Bld) [Volum e fraction]Ordered By: Renard Burgos on 04-22-2024 Hematocrit (Bld) [Volume fraction] 44.5 % 40-54 [facility] Hemoglobin measurementOrdere d By: Renard Burgos on 04-22-2024 Hemoglobin (Bld) [Mass/Vol] 14.3 g/dL 13.0-16.5 [facility] Immature granulocytes/100 WB C Auto (Bld)Ordered By: Renard Burgos on 04-22-2024 Immature granulocytes/100 WBC (Bld) 0.300 % 0.0-0.9 [facility] Comment on above: IG% - Immature Granu locytes (promyelocytes, myelocytes and metamyelocytes) > 1% indicates that a LEFT SHIFT is Present. Lymphocytes Auto (Unsp spec) [#/Vol]Ordered By: Renard Burgos on 04-22-2024 Lymphocytes (Bld) [#/Vol] 2.61 10*3/uL 0.83-4.51 [facility] Lymphocytes/100 WBC Auto (Un sp spec)Ordered By: Renard Burgos on 04-22-2024 Lymphocytes/100 WBC (Bld) 22.0 % 19-41 [facility] MCV (mean corpuscular volume ) determinationOrdered By: Renard Burgos on 04-22-2024 MCV (RBC) [Entitic vol] 92.5 fL 80-94 [facility] Mean corpuscular hemoglobin (MCH) determinationOrdered By: Renard Burgos on 04-22-2024 MCH (RBC) [Entitic mass] 29.7 pg 27.0-32.0 [facility] Mean corpuscular hemoglobin concentration (MCHC) determinationOrdered By: Renard Burgos on 04-22-2024 MCHC (RBC) [Mass/Vol] 32.1 g/dL 32-36 [facility] Mean platelet volume determi nationOrdered By: Renard Burgos on 04-22-2024 Platelet mean volume (Bld) [Entitic vol] 11.0 fL 6.2-12.0 [facility] Monocyte percentageOrdered B y: Renard Burgos on 04-22-2024 Monocytes/100 WBC (Bld) 8.3 % 0-10 [facility] Neutrophil percentageOrdered By: Renard Burgos on 04-22-2024 Neutrophils/100 WBC (Bld) 68.5 % 47-70 [facility] Nucleated red blood cell per centageOrdered By: Renard Burgos on 04-22-2024 Nucleated RBC/100 WBC (Bld) [Ratio] 0 % 0-5 [facility] Platelet countOrdered By: Garrick Bhatt on 04-22-2024 Platelets (Bld) [#/Vol] 190 10*3/uL 150-450 [facility] RBC Auto (Bld) [#/Vol]Ordere d By: Renard Burgos on 04-22-2024 RBC (Bld) [#/Vol] 4.81 10*6/uL 4.6-6.2 [facility] White blood cell (WBC) count Ordered By: Renard Burgos on 04-22-2024 WBC (Bld) [#/Vol] 11.9 10*3/uL High 4.4-11.0 [facility] Absolute neutrophil countOrd ered By: Renard Burgos on 04-15-2024 Neutrophils (Bld) [#/Vol] 8.7 10*3/uL High 2.0-7.7 [facility] Basophil percentageOrdered B y: Renard Burgos on 04-15-2024 Basophils/100 WBC (Bld) 0.3 % 0-1 [facility] Bilirubin, totalOrdered By: Renard Burgos on 04-15-2024 Bilirubin [Mass/Vol] 0.30 mg/dL 0.20-1.00 [facility] Comment on above: For patients on eltr ombopag therapy, use of Dimension [place] TBIL is not recommended. Bilirubin.direct [Mass/Vol]O rdered By: Renard Burgos on 04-15-2024 Direct Bilirubin < 0.05 mg/dL 0.00-0.30 [facility] CBC W/Diff, Automatedon 03-31 Absolute Lymph 1.93 X10 3/uL Normal 0.83-4.51 [facility] Comment on above: Order Comment: 109-1 Performed By: #### L 100.0100, L500.3400 ####[facility] [address] [place], [address] Absolute Neut 8.7 X10 3/uL High 2.0-7.7 [facility] Comment on above: Order Comment: 109-1 Performed By: #### L 100.0100, L500.3400 ####[facility] [address] [place], [address] Basophils/100 WBC (Bld) 0.3 % Normal 0-1 [facility] Comment on above: Order Comment: 109-1 Performed By: #### L 100.0100, L500.3400 ####[facility] [address] [place], [address] Eosinophils/100 WBC (Bld) 0.4 % Normal 0-5 [facility] Comment on above: Order Comment: 109-1 Performed By: #### L 100.0100, L500.3400 ####[facility] [address] [place], [address] Erythrocyte distribution width (RBC) [Ratio] 12.8 % Normal 11.6-14.6 [facility] Comment on above: Order Comment: 109-1 Performed By: #### L 100.0100, L500.3400 ####[facility] [address] [place], [address] Hematocrit (Bld) [Volume fraction] 42.5 % Normal 40-54 [facility] Comment on above: Order Comment: 109-1 Performed By: #### L 100.0100, L500.3400 ####[facility] [address] [place], [address] Hemoglobin (Bld) [Mass/Vol] 13.7 g/dL Normal 13.0-16.5 [facility] Comment on above: Order Comment: 109-1 Performed By: #### L 100.0100, L500.3400 ####[facility] [address] [place], [address] IG% 0.400 Normal 0.0-0.9 [facility] Comment on above: Order Comment: 109-1 Result Comment: IG% - Immature Granulocytes (promyelocytes, myelocytes andmetamyelocytes) > 1% indicates that a LEFT SHIFT is Present. Performed By: #### L 100.0100, L500.3400 ####[facility] [address] [place], [address] Lymphocytes/100 WBC (Bld) 16.9 % Low 19-41 [facility] Comment on above: Order Comment: 109-1 Performed By: #### L 100.0100, L500.3400 ####[facility] [address] [place], [address] MCH (RBC) [Entitic mass] 29.5 pg Normal 27.0-32.0 [facility] Comment on above: Order Comment: 109-1 Performed By: #### L 100.0100, L500.3400 ####[facility] [address] [place], [address] MCHC (RBC) [Mass/Vol] 32.2 g/dL Normal 32-36 [facility] Comment on above: Order Comment: 109-1 Performed By: #### L 100.0100, L500.3400 ####[facility] [address] [place], [address] MCV (RBC) [Entitic vol] 91.6 fL Normal 80-94 [facility] Comment on above: Order Comment: 109-1 Performed By: #### L 100.0100, L500.3400 ####[facility] [address] [place], [address] Monocytes/100 WBC (Bld) 6.0 % Normal 0-10 [facility] Comment on above: Order Comment: 109-1 Performed By: #### L 100.0100, L500.3400 ####[facility] [address] [place], [address] Neutrophils/100 WBC (Bld) 76.0 % High 47-70 [facility] Comment on above: Order Comment: 109-1 Performed By: #### L 100.0100, L500.3400 ####[facility] [address] [place], [address] Nucleated RBC (Bld) [#/Vol] 0 10*3/uL Normal 0-5 [facility] Comment on above: Order Comment: 109-1 Performed By: #### L 100.0100, L500.3400 ####[facility] [address] [place], [address] Platelet mean volume (Bld) [Entitic vol] 11.1 fL Normal 6.2-12.0 [facility] Comment on above: Order Comment: 109-1 Performed By: #### L 100.0100, L500.3400 ####[facility] [address] [place], [address] Platelets (Bld) [#/Vol] 197 10*3/uL Normal 150-450 [facility] Comment on above: Order Comment: 109-1 Performed By: #### L 100.0100, L500.3400 ####[facility] [address] [place], [address] RBC (Bld) [#/Vol] 4.64 10*6/uL Normal 4.6-6.2 [facility] Comment on above: Order Comment: 109-1 Performed By: #### L 100.0100, L500.3400 ####[facility] [address] [place], [address] RDW SD 42.5 fl Normal 35.1-43.9 [facility] Comment on above: Order Comment: 109-1 Performed By: #### L 100.0100, L500.3400 ####[facility] [address] [place], [address] WBC (Bld) [#/Vol] 11.4 10*3/uL High 4.4-11.0 [facility] Comment on above: Order Comment: 109-1 Performed By: #### L 100.0100, L500.3400 ####[facility] [address] [place], [address] Eosinophil percentageOrdered By: Renard Burgos on 04-15-2024 Eosinophils/100 WBC (Bld) 0.4 % 0-5 [facility] Erythrocyte distribution wid th ratioOrdered By: Renard Burgos on 04-15-2024 Erythrocyte distribution width (RBC) [Ratio] 12.8 % 11.6-14.6 [facility] Erythrocyte distribution wid th standard deviationOrdered By: Renard Burgos on 04-15-2024 Erythrocyte distribution width (RBC) [Entitic vol] 42.5 fL 35.1-43.9 [facility] Hematocrit Auto (Bld) [Volum e fraction]Ordered By: Renard Burgos on 04-15-2024 Hematocrit (Bld) [Volume fraction] 42.5 % 40-54 [facility] Hemoglobin measurementOrdere d By: Renard Burgos on 04-15-2024 Hemoglobin (Bld) [Mass/Vol] 13.7 g/dL 13.0-16.5 [facility] Immature granulocytes/100 WB C Auto (Bld)Ordered By: Renard Burgos on 04-15-2024 Immature granulocytes/100 WBC (Bld) 0.400 % 0.0-0.9 [facility] Comment on above: IG% - Immature Granu locytes (promyelocytes, myelocytes and metamyelocytes) > 1% indicates that a LEFT SHIFT is Present. Laboratory - Chemistry and C hemistry - challengeOrdered By: Renard Burgos on 04-15-2024 AST [Catalytic activity/Vol] 18 U/L 15-37 [facility] Comment on above: Slight Hemolysis, Re sult may be falsely increased. Liver Profileon 04-15-2024 Albumin [Mass/Vol] 2.9 g/dL Low 3.2-5.0 [facility] Comment on above: Order Comment: 109-1 Performed By: #### L 100.0100, L500.3400 ####[facility] [address] [place], [place], [address] ALK P 126 U/L High 45-117 [facility] Comment on above: Order Comment: 109-1 Performed By: #### L 100.0100, L500.3400 ####[facility] [address] [place], [address] ALT [Catalytic activity/Vol] 21 U/L Normal 16-61 [facility] Comment on above: Order Comment: 109-1 Performed By: #### L 100.0100, L500.3400 ####[facility] [address], [address] AST [Catalytic activity/Vol] 18 U/L Normal 15-37 [facility] Comment on above: Order Comment: 109-1 Result Comment: Slig ht Hemolysis, Result may be falsely increased. Performed By: #### L 100.0100, L500.3400 ####[facility] [address] [place], [address] Bilirubin [Mass/Vol] 0.30 mg/dL Normal 0.20-1.00 [facility] Comment on above: Order Comment: 109-1 Result Comment: For patients on eltrombopag therapy, use of Dimension [place] TBIL is not recommended. Performed By: #### L 100.0100, L500.3400 ####[facility] [address] [place], [address] D BILI < 0.05 Normal 0.00-0.30 [facility] Comment on above: Order Comment: 109-1 Performed By: #### L 100.0100, L500.3400 ####[facility] [address], [address] Globulin (S) [Mass/Vol] 3.0 g/dL Normal 2.2-4.2 [facility] Comment on above: Order Comment: 109-1 Performed By: #### L 100.0100, L500.3400 ####[facility] [address], [address] T PROT 5.9 g/dL Low 6.4-8.2 [facility] Comment on above: Order Comment: 109-1 Performed By: #### L 100.0100, L500.3400 ####[facility] [address] [place], [address] Lymphocytes Auto (Unsp spec) [#/Vol]Ordered By: Renard Burgos on 04-15-2024 Lymphocytes (Bld) [#/Vol] 1.93 10*3/uL 0.83-4.51 [facility] Lymphocytes/100 WBC Auto (Un sp spec)Ordered By: Renard Burgos on 04-15-2024 Lymphocytes/100 WBC (Bld) 16.9 % Low 19-41 [facility] MCV (mean corpuscular volume ) determinationOrdered By: Renard Burgos on 04-15-2024 MCV (RBC) [Entitic vol] 91.6 fL 80-94 [facility] Mean corpuscular hemoglobin (MCH) determinationOrdered By: Renard Burgos on 04-15-2024 MCH (RBC) [Entitic mass] 29.5 pg 27.0-32.0 [facility] Mean corpuscular hemoglobin concentration (MCHC) determinationOrdered By: Renard Burgos on 04-15-2024 MCHC (RBC) [Mass/Vol] 32.2 g/dL 32-36 [facility] Mean platelet volume determi nationOrdered By: Renard Burgos on 04-15-2024 Platelet mean volume (Bld) [Entitic vol] 11.1 fL 6.2-12.0 [facility] Monocyte percentageOrdered B y: Renard Burgos on 04-15-2024 Monocytes/100 WBC (Bld) 6.0 % 0-10 [facility] Neutrophil percentageOrdered By: Renard Burgos on 04-15-2024 Neutrophils/100 WBC (Bld) 76.0 % High 47-70 [facility] Nucleated red blood cell per centageOrdered By: Renard Burgos on 04-15-2024 Nucleated RBC/100 WBC (Bld) [Ratio] 0 % 0-5 [facility] Platelet countOrdered By: Garrick Bhatt on 04-15-2024 Platelets (Bld) [#/Vol] 197 10*3/uL 150-450 [facility] RBC Auto (Bld) [#/Vol]Ordere d By: Renard Burgos on 04-15-2024 RBC (Bld) [#/Vol] 4.64 10*6/uL 4.6-6.2 [facility] Serum globulin measurementOr dered By: Renard Burgos on 04-15-2024 Globulin (S) [Mass/Vol] 3.0 g/dL 2.2-4.2 [facility] Serum or plasma alanine kay otransferase (ALT) measurementOrdered By: Renard Burgos on 04-15-2024 ALT [Catalytic activity/Vol] 21 U/L 16-61 [facility] Serum or plasma albumin gordy urement (mass/volume)Ordered By: Renard Burgos on 04-15-2024 Albumin [Mass/Vol] 2.9 g/dL Low 3.2-5.0 [facility] Serum or plasma alkaline trace sphatase measurementOrdered By: Renard Burgos on 04-15-2024 ALP [Catalytic activity/Vol] 126 U/L High 45-117 [facility] Total proteinOrdered By: Lyubov Burgos on 04-15-2024 Protein [Mass/Vol] 5.9 g/dL Low 6.4-8.2 [facility] White blood cell (WBC) count Ordered By: Renard Burgos on 04-15-2024 WBC (Bld) [#/Vol] 11.4 10*3/uL High 4.4-11.0 [facility] Absolute neutrophil countOrd ered By: Renard Burgos on 04-08-2024 Neutrophils (Bld) [#/Vol] 5.7 10*3/uL 2.0-7.7 [facility] Basophil percentageOrdered B y: Renard Burgos on 04-08-2024 Basophils/100 WBC (Bld) 0.6 % 0-1 [facility] CBC W/Diff, Automatedon Absolute Lymph 2.27 X10 3/uL Normal 0.83-4.51 [facility] Comment on above: Order Comment: 109.1 Performed By: #### L 100.0100 ####[facility] [address] [place], [place], [address] Absolute Neut 5.7 X10 3/uL Normal 2.0-7.7 [facility] Comment on above: Order Comment: 109.1 Performed By: #### L 100.0100 ####[facility] [address] [place], [address] Basophils/100 WBC (Bld) 0.6 % Normal 0-1 [facility] Comment on above: Order Comment: 109.1 Performed By: #### L 100.0100 ####[facility] [address] [place], [address] Eosinophils/100 WBC (Bld) 0.5 % Normal 0-5 [facility] Comment on above: Order Comment: 109.1 Performed By: #### L 100.0100 ####[facility] [address], [address] Erythrocyte distribution width (RBC) [Ratio] 12.6 % Normal 11.6-14.6 [facility] Comment on above: Order Comment: 109.1 Performed By: #### L 100.0100 ####[facility] [address] [place], [address] Hematocrit (Bld) [Volume fraction] 41.2 % Normal 40-54 [facility] Comment on above: Order Comment: 109.1 Performed By: #### L 100.0100 ####[facility] [address] [place], [address] Hemoglobin (Bld) [Mass/Vol] 13.3 g/dL Normal 13.0-16.5 [facility] Comment on above: Order Comment: 109.1 Performed By: #### L 100.0100 ####[facility] [address] [place], [address] IG% 0.200 Normal 0.0-0.9 [facility] Comment on above: Order Comment: 109.1 Result Comment: IG% - Immature Granulocytes (promyelocytes, myelocytes andmetamyelocytes) > 1% indicates that a LEFT SHIFT is Present. Performed By: #### L 100.0100 ####[facility] [address] [place], [address] Lymphocytes/100 WBC (Bld) 26.0 % Normal 19-41 [facility] Comment on above: Order Comment: 109.1 Performed By: #### L 100.0100 ####[facility] [address] [place], [address] MCH (RBC) [Entitic mass] 29.6 pg Normal 27.0-32.0 [facility] Comment on above: Order Comment: 109.1 Performed By: #### L 100.0100 ####[facility] [address] [place], [address] MCHC (RBC) [Mass/Vol] 32.3 g/dL Normal 32-36 [facility] Comment on above: Order Comment: 109.1 Performed By: #### L 100.0100 ####[facility] [address] [place], [address] MCV (RBC) [Entitic vol] 91.8 fL Normal 80-94 [facility] Comment on above: Order Comment: 109.1 Performed By: #### L 100.0100 ####[facility] [address] [place], [address] Monocytes/100 WBC (Bld) 7.8 % Normal 0-10 [facility] Comment on above: Order Comment: 109.1 Performed By: #### L 100.0100 ####[facility] [address] [place], [address] Neutrophils/100 WBC (Bld) 64.9 % Normal 47-70 [facility] Comment on above: Order Comment: 109.1 Performed By: #### L 100.0100 ####[facility] [address] [place], [address] Nucleated RBC (Bld) [#/Vol] 0 10*3/uL Normal 0-5 [facility] Comment on above: Order Comment: 109.1 Performed By: #### L 100.0100 ####[facility] [address] [place], [address] Platelet mean volume (Bld) [Entitic vol] 10.8 fL Normal 6.2-12.0 [facility] Comment on above: Order Comment: 109.1 Performed By: #### L 100.0100 ####[facility] [address] [place], [address] Platelets (Bld) [#/Vol] 208 10*3/uL Normal 150-450 [facility] Comment on above: Order Comment: 109.1 Performed By: #### L 100.0100 ####[facility] [address] [place], [address] RBC (Bld) [#/Vol] 4.49 10*6/uL Low 4.6-6.2 [facility] Comment on above: Order Comment: 109.1 Performed By: #### L 100.0100 ####[facility] [address] [place], [address] RDW SD 42.4 fl Normal 35.1-43.9 [facility] Comment on above: Order Comment: 109.1 Performed By: #### L 100.0100 ####[facility] [address] [place], [address] WBC (Bld) [#/Vol] 8.7 10*3/uL Normal 4.4-11.0 [facility] Comment on above: Order Comment: 109.1 Performed By: #### L 100.0100 ####[facility] [address] [place], [address] Eosinophil percentageOrdered By: Renard Burgos on 04-08-2024 Eosinophils/100 WBC (Bld) 0.5 % 0-5 [facility] Erythrocyte distribution wid th ratioOrdered By: Renard Burgos on 04-08-2024 Erythrocyte distribution width (RBC) [Ratio] 12.6 % 11.6-14.6 [facility] Erythrocyte distribution wid th standard deviationOrdered By: Renard Burgos on 04-08-2024 Erythrocyte distribution width (RBC) [Entitic vol] 42.4 fL 35.1-43.9 [facility] Hematocrit Auto (Bld) [Volum e fraction]Ordered By: Renard Burgos on 04-08-2024 Hematocrit (Bld) [Volume fraction] 41.2 % 40-54 [facility] Hemoglobin measurementOrdere d By: Renard Burgos on 04-08-2024 Hemoglobin (Bld) [Mass/Vol] 13.3 g/dL 13.0-16.5 [facility] Immature granulocytes/100 WB C Auto (Bld)Ordered By: Renard Burgos on 04-08-2024 Immature granulocytes/100 WBC (Bld) 0.200 % 0.0-0.9 [facility] Comment on above: IG% - Immature Granu locytes (promyelocytes, myelocytes and metamyelocytes) > 1% indicates that a LEFT SHIFT is Present. Lymphocytes Auto (Unsp spec) [#/Vol]Ordered By: Renard Burgos on 04-08-2024 Lymphocytes (Bld) [#/Vol] 2.27 10*3/uL 0.83-4.51 [facility] Lymphocytes/100 WBC Auto (Un sp spec)Ordered By: Renard Burgos on 04-08-2024 Lymphocytes/100 WBC (Bld) 26.0 % 19-41 [facility] MCV (mean corpuscular volume ) determinationOrdered By: Renard Burgos on 04-08-2024 MCV (RBC) [Entitic vol] 91.8 fL 80-94 [facility] Mean corpuscular hemoglobin (MCH) determinationOrdered By: Renard Burgos on 04-08-2024 MCH (RBC) [Entitic mass] 29.6 pg 27.0-32.0 [facility] Mean corpuscular hemoglobin concentration (MCHC) determinationOrdered By: Renard Burgos on 04-08-2024 MCHC (RBC) [Mass/Vol] 32.3 g/dL 32-36 [facility] Mean platelet volume determi nationOrdered By: Renard Burgos on 04-08-2024 Platelet mean volume (Bld) [Entitic vol] 10.8 fL 6.2-12.0 [facility] Monocyte percentageOrdered B y: Renard Burgos on 04-08-2024 Monocytes/100 WBC (Bld) 7.8 % 0-10 [facility] Neutrophil percentageOrdered By: Renard Burgos on 04-08-2024 Neutrophils/100 WBC (Bld) 64.9 % 47-70 [facility] Nucleated red blood cell per centageOrdered By: Renard Burgos on 04-08-2024 Nucleated RBC/100 WBC (Bld) [Ratio] 0 % 0-5 [facility] Platelet countOrdered By: Garrick Bhatt on 04-08-2024 Platelets (Bld) [#/Vol] 208 10*3/uL 150-450 [facility] RBC Auto (Bld) [#/Vol]Ordere d By: Renard Burgos on 04-08-2024 RBC (Bld) [#/Vol] 4.49 10*6/uL Low 4.6-6.2 [facility] White blood cell (WBC) count Ordered By: Renard Burgos on 04-08-2024 WBC (Bld) [#/Vol] 8.7 10*3/uL 4.4-11.0 [facility] Absolute neutrophil countOrd ered By: Renard Burgos on 04-01-2024 Neutrophils (Bld) [#/Vol] 7.1 10*3/uL 2.0-7.7 [facility] Basophil percentageOrdered B y: Renard Burgos on 04-01-2024 Basophils/100 WBC (Bld) 0.4 % 0-1 [facility] CBC W/Diff, Automatedon Absolute Lymph 1.97 X10 3/uL Normal 0.83-4.51 [facility] Comment on above: Order Comment: 109-1 Performed By: #### L 100.0100 ####[facility] [address] [place], [address] Absolute Neut 7.1 X10 3/uL Normal 2.0-7.7 [facility] Comment on above: Order Comment: 109-1 Performed By: #### L 100.0100 ####[facility] [address] [place], [address] Basophils/100 WBC (Bld) 0.4 % Normal 0-1 [facility] Comment on above: Order Comment: 109-1 Performed By: #### L 100.0100 ####[facility] [address] [place], [address] Eosinophils/100 WBC (Bld) 0.4 % Normal 0-5 [facility] Comment on above: Order Comment: 109-1 Performed By: #### L 100.0100 ####[facility] [address] [place], [address] Erythrocyte distribution width (RBC) [Ratio] 12.6 % Normal 11.6-14.6 [facility] Comment on above: Order Comment: 109-1 Performed By: #### L 100.0100 ####[facility] [address] [place], [address] Hematocrit (Bld) [Volume fraction] 41.7 % Normal 40-54 [facility] Comment on above: Order Comment: 109-1 Performed By: #### L 100.0100 ####[facility] [address] [place], [address] Hemoglobin (Bld) [Mass/Vol] 13.6 g/dL Normal 13.0-16.5 [facility] Comment on above: Order Comment: 109-1 Performed By: #### L 100.0100 ####[facility] [address] [place], [address] IG% 0.300 Normal 0.0-0.9 [facility] Comment on above: Order Comment: 109-1 Result Comment: IG% - Immature Granulocytes (promyelocytes, myelocytes andmetamyelocytes) > 1% indicates that a LEFT SHIFT is Present. Performed By: #### L 100.0100 ####[facility] [address] [place], [address] Lymphocytes/100 WBC (Bld) 20.0 % Normal 19-41 [facility] Comment on above: Order Comment: 109-1 Performed By: #### L 100.0100 ####[facility] [address] [place], [address] MCH (RBC) [Entitic mass] 29.7 pg Normal 27.0-32.0 [facility] Comment on above: Order Comment: 109-1 Performed By: #### L 100.0100 ####[facility] [address] [place], [address] MCHC (RBC) [Mass/Vol] 32.6 g/dL Normal 32-36 [facility] Comment on above: Order Comment: 109-1 Performed By: #### L 100.0100 ####[facility] [address] [place], [address] MCV (RBC) [Entitic vol] 91.0 fL Normal 80-94 [facility] Comment on above: Order Comment: 109-1 Performed By: #### L 100.0100 ####[facility] [address] [place], [address] Monocytes/100 WBC (Bld) 7.1 % Normal 0-10 [facility] Comment on above: Order Comment: 109-1 Performed By: #### L 100.0100 ####[facility] [address] [place], [address] Neutrophils/100 WBC (Bld) 71.8 % High 47-70 [facility] Comment on above: Order Comment: 109-1 Performed By: #### L 100.0100 ####[facility] [address] [place], [address] Nucleated RBC (Bld) [#/Vol] 0 10*3/uL Normal 0-5 [facility] Comment on above: Order Comment: 109-1 Performed By: #### L 100.0100 ####[facility] [address] [place], [address] Platelet mean volume (Bld) [Entitic vol] 11.3 fL Normal 6.2-12.0 [facility] Comment on above: Order Comment: 109-1 Performed By: #### L 100.0100 ####[facility] [address] [place], [address] Platelets (Bld) [#/Vol] 195 10*3/uL Normal 150-450 [facility] Comment on above: Order Comment: 109-1 Performed By: #### L 100.0100 ####[facility] [address] [place], [address] RBC (Bld) [#/Vol] 4.58 10*6/uL Low 4.6-6.2 [facility] Comment on above: Order Comment: 109-1 Performed By: #### L 100.0100 ####[facility] [address] [place], [address] RDW SD 41.2 fl Normal 35.1-43.9 [facility] Comment on above: Order Comment: 109-1 Performed By: #### L 100.0100 ####[facility] [address] [place], [address] WBC (Bld) [#/Vol] 9.8 10*3/uL Normal 4.4-11.0 [facility] Comment on above: Order Comment: 109-1 Performed By: #### L 100.0100 ####[facility] [address] [place], [address] Eosinophil percentageOrdered By: Renard Burgos on 04-01-2024 Eosinophils/100 WBC (Bld) 0.4 % 0-5 [facility] Erythrocyte distribution wid th ratioOrdered By: Renard Burgos on 04-01-2024 Erythrocyte distribution width (RBC) [Ratio] 12.6 % 11.6-14.6 [facility] Erythrocyte distribution wid th standard deviationOrdered By: Renard Burgos on 04-01-2024 Erythrocyte distribution width (RBC) [Entitic vol] 41.2 fL 35.1-43.9 [facility] Hematocrit Auto (Bld) [Volum e fraction]Ordered By: Renard Burgos on 04-01-2024 Hematocrit (Bld) [Volume fraction] 41.7 % 40-54 [facility] Hemoglobin measurementOrdere d By: Renard Burgos on 04-01-2024 Hemoglobin (Bld) [Mass/Vol] 13.6 g/dL 13.0-16.5 [facility] Immature granulocytes/100 WB C Auto (Bld)Ordered By: Renard Burgos on 04-01-2024 Immature granulocytes/100 WBC (Bld) 0.300 % 0.0-0.9 [facility] Comment on above: IG% - Immature Granu locytes (promyelocytes, myelocytes and metamyelocytes) > 1% indicates that a LEFT SHIFT is Present. Lymphocytes Auto (Unsp spec) [#/Vol]Ordered By: Renard Burgos on 04-01-2024 Lymphocytes (Bld) [#/Vol] 1.97 10*3/uL 0.83-4.51 [facility] Lymphocytes/100 WBC Auto (Un sp spec)Ordered By: Renard Burgos on 04-01-2024 Lymphocytes/100 WBC (Bld) 20.0 % 19-41 [facility] MCV (mean corpuscular volume ) determinationOrdered By: Renard Burgos on 04-01-2024 MCV (RBC) [Entitic vol] 91.0 fL 80-94 [facility] Mean corpuscular hemoglobin (MCH) determinationOrdered By: Renard Burgos on 04-01-2024 MCH (RBC) [Entitic mass] 29.7 pg 27.0-32.0 [facility] Mean corpuscular hemoglobin concentration (MCHC) determinationOrdered By: Renard Burgos on 04-01-2024 MCHC (RBC) [Mass/Vol] 32.6 g/dL 32-36 [facility] Mean platelet volume determi nationOrdered By: Renard Burgos on 04-01-2024 Platelet mean volume (Bld) [Entitic vol] 11.3 fL 6.2-12.0 [facility] Monocyte percentageOrdered B y: Renard Burgos on 04-01-2024 Monocytes/100 WBC (Bld) 7.1 % 0-10 [facility] Neutrophil percentageOrdered By: Renard Burgos on 04-01-2024 Neutrophils/100 WBC (Bld) 71.8 % High 47-70 [facility] Nucleated red blood cell per centageOrdered By: Renard Burgos on 04-01-2024 Nucleated RBC/100 WBC (Bld) [Ratio] 0 % 0-5 [facility] Platelet countOrdered By: Garrick Bhatt on 04-01-2024 Platelets (Bld) [#/Vol] 195 10*3/uL 150-450 [facility] RBC Auto (Bld) [#/Vol]Ordere d By: Renard Burgos on 04-01-2024 RBC (Bld) [#/Vol] 4.58 10*6/uL Low 4.6-6.2 [facility] White blood cell (WBC) count Ordered By: Renard Burgos on 04-01-2024 WBC (Bld) [#/Vol] 9.8 10*3/uL 4.4-11.0 [facility] Absolute neutrophil countOrd ered By: Renard Burgos on 03-25-2024 Neutrophils (Bld) [#/Vol] 5.4 10*3/uL 2.0-7.7 [facility] Basophil percentageOrdered B y: Renard Burgos on 03-25-2024 Basophils/100 WBC (Bld) 0.5 % 0-1 [facility] CBC W/Diff, Automatedon 03-02 Absolute Lymph 2.14 X10 3/uL Normal 0.83-4.51 [facility] Comment on above: Order Comment: 109-1 Performed By: #### L 100.0100 ####[facility] [address] [place], [address] Absolute Neut 5.4 X10 3/uL Normal 2.0-7.7 [facility] Comment on above: Order Comment: 109-1 Performed By: #### L 100.0100 ####[facility] [address] [place], [address] Basophils/100 WBC (Bld) 0.5 % Normal 0-1 [facility] Comment on above: Order Comment: 109-1 Performed By: #### L 100.0100 ####[facility] [address] [place], [address] Eosinophils/100 WBC (Bld) 0.7 % Normal 0-5 [facility] Comment on above: Order Comment: 109-1 Performed By: #### L 100.0100 ####[facility] [address] [place], [address] Erythrocyte distribution width (RBC) [Ratio] 12.7 % Normal 11.6-14.6 [facility] Comment on above: Order Comment: 109-1 Performed By: #### L 100.0100 ####[facility] [address] [place], [address] Hematocrit (Bld) [Volume fraction] 42.3 % Normal 40-54 [facility] Comment on above: Order Comment: 109-1 Performed By: #### L 100.0100 ####[facility] [address] [place], [address] Hemoglobin (Bld) [Mass/Vol] 13.7 g/dL Normal 13.0-16.5 [facility] Comment on above: Order Comment: 109-1 Performed By: #### L 100.0100 ####[facility] [address], [address] IG% 0.500 Normal 0.0-0.9 [facility] Comment on above: Order Comment: 109-1 Result Comment: IG% - Immature Granulocytes (promyelocytes, myelocytes andmetamyelocytes) > 1% indicates that a LEFT SHIFT is Present. Performed By: #### L 100.0100 ####[facility] [address] [place], [address] Lymphocytes/100 WBC (Bld) 25.8 % Normal 19-41 [facility] Comment on above: Order Comment: 109-1 Performed By: #### L 100.0100 ####[facility] [address] [place], [address] MCH (RBC) [Entitic mass] 29.2 pg Normal 27.0-32.0 [facility] Comment on above: Order Comment: 109-1 Performed By: #### L 100.0100 ####[facility] [address] [place], [address] MCHC (RBC) [Mass/Vol] 32.4 g/dL Normal 32-36 [facility] Comment on above: Order Comment: 109-1 Performed By: #### L 100.0100 ####[facility] [address] [place], [address] MCV (RBC) [Entitic vol] 90.2 fL Normal 80-94 [facility] Comment on above: Order Comment: 109-1 Performed By: #### L 100.0100 ####[facility] [address] [place], [address] Monocytes/100 WBC (Bld) 8.0 % Normal 0-10 [facility] Comment on above: Order Comment: 109-1 Performed By: #### L 100.0100 ####[facility] [address] [place], [address] Neutrophils/100 WBC (Bld) 64.5 % Normal 47-70 [facility] Comment on above: Order Comment: 109-1 Performed By: #### L 100.0100 ####[facility] [address] [place], [address] Nucleated RBC (Bld) [#/Vol] 0 10*3/uL Normal 0-5 [facility] Comment on above: Order Comment: 109-1 Performed By: #### L 100.0100 ####[facility] [address] [place], [address] Platelet mean volume (Bld) [Entitic vol] 11.2 fL Normal 6.2-12.0 [facility] Comment on above: Order Comment: 109-1 Performed By: #### L 100.0100 ####[facility] [address] [place], [address] Platelets (Bld) [#/Vol] 204 10*3/uL Normal 150-450 [facility] Comment on above: Order Comment: 109-1 Performed By: #### L 100.0100 ####[facility] [address] [place], [address] RBC (Bld) [#/Vol] 4.69 10*6/uL Normal 4.6-6.2 [facility] Comment on above: Order Comment: 109-1 Performed By: #### L 100.0100 ####[facility] [address] [place], [address] RDW SD 41.8 fl Normal 35.1-43.9 [facility] Comment on above: Order Comment: 109-1 Performed By: #### L 100.0100 ####[facility] [address] [place], [address] WBC (Bld) [#/Vol] 8.3 10*3/uL Normal 4.4-11.0 [facility] Comment on above: Order Comment: 109-1 Performed By: #### L 100.0100 ####[facility] [address] [place], [address] Eosinophil percentageOrdered By: Renard Burgos on 03-25-2024 Eosinophils/100 WBC (Bld) 0.7 % 0-5 [facility] Erythrocyte distribution wid th ratioOrdered By: Renard Burgos on 03-25-2024 Erythrocyte distribution width (RBC) [Ratio] 12.7 % 11.6-14.6 [facility] Erythrocyte distribution wid th standard deviationOrdered By: Renard Burgos on 03-25-2024 Erythrocyte distribution width (RBC) [Entitic vol] 41.8 fL 35.1-43.9 [facility] Hematocrit Auto (Bld) [Volum e fraction]Ordered By: Renard Burgos on 03-25-2024 Hematocrit (Bld) [Volume fraction] 42.3 % 40-54 [facility] Hemoglobin measurementOrdere d By: Renard Burgos on 03-25-2024 Hemoglobin (Bld) [Mass/Vol] 13.7 g/dL 13.0-16.5 [facility] Immature granulocytes/100 WB C Auto (Bld)Ordered By: Renard Burgos on 03-25-2024 Immature granulocytes/100 WBC (Bld) 0.500 % 0.0-0.9 [facility] Comment on above: IG% - Immature Granu locytes (promyelocytes, myelocytes and metamyelocytes) > 1% indicates that a LEFT SHIFT is Present. Lymphocytes Auto (Unsp spec) [#/Vol]Ordered By: Renard Burgos on 03-25-2024 Lymphocytes (Bld) [#/Vol] 2.14 10*3/uL 0.83-4.51 [facility] Lymphocytes/100 WBC Auto (Un sp spec)Ordered By: Renard Burgos on 03-25-2024 Lymphocytes/100 WBC (Bld) 25.8 % 19-41 [facility] MCV (mean corpuscular volume ) determinationOrdered By: Renard Burgos on 03-25-2024 MCV (RBC) [Entitic vol] 90.2 fL 80-94 [facility] Mean corpuscular hemoglobin (MCH) determinationOrdered By: Renard Burgos on 03-25-2024 MCH (RBC) [Entitic mass] 29.2 pg 27.0-32.0 [facility] Mean corpuscular hemoglobin concentration (MCHC) determinationOrdered By: Renard Burgos on 03-25-2024 MCHC (RBC) [Mass/Vol] 32.4 g/dL 32-36 [facility] Mean platelet volume determi nationOrdered By: Renard Burgos on 03-25-2024 Platelet mean volume (Bld) [Entitic vol] 11.2 fL 6.2-12.0 [facility] Monocyte percentageOrdered B y: Renard Burgos on 03-25-2024 Monocytes/100 WBC (Bld) 8.0 % 0-10 [facility] Neutrophil percentageOrdered By: Renard Burgos on 03-25-2024 Neutrophils/100 WBC (Bld) 64.5 % 47-70 [facility] Nucleated red blood cell per centageOrdered By: Renard Burgos on 03-25-2024 Nucleated RBC/100 WBC (Bld) [Ratio] 0 % 0-5 [facility] Platelet countOrdered By: Garrick Bhatt on 03-25-2024 Platelets (Bld) [#/Vol] 204 10*3/uL 150-450 [facility] RBC Auto (Bld) [#/Vol]Ordere d By: Renard Burgos on 03-25-2024 RBC (Bld) [#/Vol] 4.69 10*6/uL 4.6-6.2 [facility] White blood cell (WBC) count Ordered By: Renard Burgos on 03-25-2024 WBC (Bld) [#/Vol] 8.3 10*3/uL 4.4-11.0 [facility] Absolute neutrophil countOrd ered By: Renard Burgos on 03-18-2024 Neutrophils (Bld) [#/Vol] 5.2 10*3/uL 2.0-7.7 [facility] Basophil percentageOrdered B y: Renard Burgos on 03-18-2024 Basophils/100 WBC (Bld) 0.6 % 0-1 [facility] CBC W/Diff, Automatedon 03-01 Absolute Lymph 2.23 X10 3/uL Normal 0.83-4.51 [facility] Comment on above: Order Comment: 109.1 Performed By: #### L 100.0100 ####[facility] [address] [place], [address] Absolute Neut 5.2 X10 3/uL Normal 2.0-7.7 [facility] Comment on above: Order Comment: 109.1 Performed By: #### L 100.0100 ####[facility] [address] [place], [address] Basophils/100 WBC (Bld) 0.6 % Normal 0-1 [facility] Comment on above: Order Comment: 109.1 Performed By: #### L 100.0100 ####[facility] [address] [place], [address] Eosinophils/100 WBC (Bld) 0.7 % Normal 0-5 [facility] Comment on above: Order Comment: 109.1 Performed By: #### L 100.0100 ####[facility] [address] [place], [address] Erythrocyte distribution width (RBC) [Ratio] 12.8 % Normal 11.6-14.6 [facility] Comment on above: Order Comment: 109.1 Performed By: #### L 100.0100 ####[facility] [address] [place], [address] Hematocrit (Bld) [Volume fraction] 42.0 % Normal 40-54 [facility] Comment on above: Order Comment: 109.1 Performed By: #### L 100.0100 ####[facility] [address] [place], [address] Hemoglobin (Bld) [Mass/Vol] 13.6 g/dL Normal 13.0-16.5 [facility] Comment on above: Order Comment: 109.1 Performed By: #### L 100.0100 ####[facility] [address] [place], [address] IG% 0.500 Normal 0.0-0.9 [facility] Comment on above: Order Comment: 109.1 Result Comment: IG% - Immature Granulocytes (promyelocytes, myelocytes andmetamyelocytes) > 1% indicates that a LEFT SHIFT is Present. Performed By: #### L 100.0100 ####[facility] [address] [place], [address] Lymphocytes/100 WBC (Bld) 27.0 % Normal 19-41 [facility] Comment on above: Order Comment: 109.1 Performed By: #### L 100.0100 ####[facility] [address] [place], [address] MCH (RBC) [Entitic mass] 29.5 pg Normal 27.0-32.0 [facility] Comment on above: Order Comment: 109.1 Performed By: #### L 100.0100 ####[facility] [address] [place], [address] MCHC (RBC) [Mass/Vol] 32.4 g/dL Normal 32-36 [facility] Comment on above: Order Comment: 109.1 Performed By: #### L 100.0100 ####[facility] [address] [place], [address] MCV (RBC) [Entitic vol] 91.1 fL Normal 80-94 [facility] Comment on above: Order Comment: 109.1 Performed By: #### L 100.0100 ####[facility] [address] [place], [address] Monocytes/100 WBC (Bld) 8.5 % Normal 0-10 [facility] Comment on above: Order Comment: 109.1 Performed By: #### L 100.0100 ####[facility] [address] [place], [address] Neutrophils/100 WBC (Bld) 62.7 % Normal 47-70 [facility] Comment on above: Order Comment: 109.1 Performed By: #### L 100.0100 ####[facility] [address] [place], [address] Nucleated RBC (Bld) [#/Vol] 0 10*3/uL Normal 0-5 [facility] Comment on above: Order Comment: 109.1 Performed By: #### L 100.0100 ####[facility] [address] [place], [address] Platelet mean volume (Bld) [Entitic vol] 10.8 fL Normal 6.2-12.0 [facility] Comment on above: Order Comment: 109.1 Performed By: #### L 100.0100 ####[facility] [address] [place], [address] Platelets (Bld) [#/Vol] 211 10*3/uL Normal 150-450 [facility] Comment on above: Order Comment: 109.1 Performed By: #### L 100.0100 ####[facility] [address] [place], [address] RBC (Bld) [#/Vol] 4.61 10*6/uL Normal 4.6-6.2 [facility] Comment on above: Order Comment: 109.1 Performed By: #### L 100.0100 ####[facility] [address] [place], [address] RDW SD 42.3 fl Normal 35.1-43.9 [facility] Comment on above: Order Comment: 109.1 Performed By: #### L 100.0100 ####[facility] [address] [place], [address] WBC (Bld) [#/Vol] 8.3 10*3/uL Normal 4.4-11.0 [facility] Comment on above: Order Comment: 109.1 Performed By: #### L 100.0100 ####[facility] [address] [place], [address] Eosinophil percentageOrdered By: Renard Burgos on 03-18-2024 Eosinophils/100 WBC (Bld) 0.7 % 0-5 [facility] Erythrocyte distribution wid th ratioOrdered By: Renard Burgos on 03-18-2024 Erythrocyte distribution width (RBC) [Ratio] 12.8 % 11.6-14.6 [facility] Erythrocyte distribution wid th standard deviationOrdered By: Renard Burgos on 03-18-2024 Erythrocyte distribution width (RBC) [Entitic vol] 42.3 fL 35.1-43.9 [facility] Hematocrit Auto (Bld) [Volum e fraction]Ordered By: Renard Burgos on 03-18-2024 Hematocrit (Bld) [Volume fraction] 42.0 % 40-54 [facility] Hemoglobin measurementOrdere d By: Renard Burgos on 03-18-2024 Hemoglobin (Bld) [Mass/Vol] 13.6 g/dL 13.0-16.5 [facility] Immature granulocytes/100 WB C Auto (Bld)Ordered By: Renard Burgos on 03-18-2024 Immature granulocytes/100 WBC (Bld) 0.500 % 0.0-0.9 [facility] Comment on above: IG% - Immature Granu locytes (promyelocytes, myelocytes and metamyelocytes) > 1% indicates that a LEFT SHIFT is Present. Lymphocytes Auto (Unsp spec) [#/Vol]Ordered By: Renard Burgos on 03-18-2024 Lymphocytes (Bld) [#/Vol] 2.23 10*3/uL 0.83-4.51 [facility] Lymphocytes/100 WBC Auto (Un sp spec)Ordered By: Renard Burgos on 03-18-2024 Lymphocytes/100 WBC (Bld) 27.0 % 19-41 [facility] MCV (mean corpuscular volume ) determinationOrdered By: Renard Burgos on 03-18-2024 MCV (RBC) [Entitic vol] 91.1 fL 80-94 [facility] Mean corpuscular hemoglobin (MCH) determinationOrdered By: Renard Burgos on 03-18-2024 MCH (RBC) [Entitic mass] 29.5 pg 27.0-32.0 [facility] Mean corpuscular hemoglobin concentration (MCHC) determinationOrdered By: Renard Burgos on 03-18-2024 MCHC (RBC) [Mass/Vol] 32.4 g/dL 32-36 [facility] Mean platelet volume determi nationOrdered By: Renard Burgos on 03-18-2024 Platelet mean volume (Bld) [Entitic vol] 10.8 fL 6.2-12.0 [facility] Monocyte percentageOrdered B y: Renard Burgos on 03-18-2024 Monocytes/100 WBC (Bld) 8.5 % 0-10 [facility] Neutrophil percentageOrdered By: Renard Burgos on 03-18-2024 Neutrophils/100 WBC (Bld) 62.7 % 47-70 [facility] Nucleated red blood cell per centageOrdered By: Renard Burgos on 03-18-2024 Nucleated RBC/100 WBC (Bld) [Ratio] 0 % 0-5 [facility] Platelet countOrdered By: Garrick Bhatt on 03-18-2024 Platelets (Bld) [#/Vol] 211 10*3/uL 150-450 [facility] RBC Auto (Bld) [#/Vol]Ordere d By: Renard Burgos on 03-18-2024 RBC (Bld) [#/Vol] 4.61 10*6/uL 4.6-6.2 [facility] White blood cell (WBC) count Ordered By: Renard Burgos on 03-18-2024 WBC (Bld) [#/Vol] 8.3 10*3/uL 4.4-11.0 [facility] Absolute neutrophil countOrd ered By: Renard Burgos on 03-11-2024 Neutrophils (Bld) [#/Vol] 6.2 10*3/uL 2.0-7.7 [facility] Automated blood erythrocyte countOrdered By: Renard Burgos on 03-11-2024 RBC (Bld) [#/Vol] 4.54 10*6/uL Low 4.6-6.2 [facility] Comment on above: Order Comment: 109.1 Performed By: #### L 100.0100 ####[facility] [address] [place], [address] Automated blood hematocrit ( percentage)Ordered By: Renard Burgos on 03-11-2024 Hematocrit (Bld) [Volume fraction] 41.5 % Normal 40-54 [facility] Comment on above: Order Comment: 109.1 Performed By: #### L 100.0100 ####[facility] [address] [place], [address] Automated lymphocyte count a s percentage of total leukocytesOrdered By: Renard Burgos on 03-11-2024 Lymphocytes/100 WBC (Bld) 25.6 % Normal 19-41 [facility] Comment on above: Order Comment: 109.1 Performed By: #### L 100.0100 ####[facility] [address] [place], [address] Basophil percentageOrdered B y: Renard Burgos on 03-11-2024 Basophils/100 WBC (Bld) 0.5 % Normal 0-1 [facility] Comment on above: Order Comment: 109.1 Performed By: #### L 100.0100 ####[facility] [address] [place], [address] CBC W/Diff, Automatedon 03-01 Absolute Lymph 2.50 X10 3/uL Normal 0.83-4.51 [facility] Comment on above: Order Comment: 109.1 Performed By: #### L 100.0100 ####[facility] [address] [place], [address] Absolute Neut 6.2 X10 3/uL Normal 2.0-7.7 [facility] Comment on above: Order Comment: 109.1 Performed By: #### L 100.0100 ####[facility] [address] [place], [address] IG% 0.500 Normal 0.0-0.9 [facility] Comment on above: Order Comment: 109.1 Result Comment: IG% - Immature Granulocytes (promyelocytes, myelocytes andmetamyelocytes) > 1% indicates that a LEFT SHIFT is Present. Performed By: #### L 100.0100 ####[facility] [address] [place], [address] Nucleated RBC (Bld) [#/Vol] 0 10*3/uL Normal 0-5 [facility] Comment on above: Order Comment: 109.1 Performed By: #### L 100.0100 ####[facility] [address] [place], [address] RDW SD 41.5 fl Normal 35.1-43.9 [facility] Comment on above: Order Comment: 109.1 Performed By: #### L 100.0100 ####[facility] [address] [place], [address] Eosinophil percentageOrdered By: Renard Burgos on 03-11-2024 Eosinophils/100 WBC (Bld) 0.6 % Normal 0-5 [facility] Comment on above: Order Comment: 109.1 Performed By: #### L 100.0100 ####[facility] [address] [place], [address] Erythrocyte distribution wid th ratioOrdered By: Renard Burgos on 03-11-2024 Erythrocyte distribution width (RBC) [Ratio] 12.7 % Normal 11.6-14.6 [facility] Comment on above: Order Comment: 109.1 Performed By: #### L 100.0100 ####[facility] [address] [place], [address] Erythrocyte distribution wid th standard deviationOrdered By: Renard Burgos on 03-11-2024 Erythrocyte distribution width (RBC) [Entitic vol] 41.5 fL 35.1-43.9 [facility] Hemoglobin measurementOrdere d By: Renard Burgos on 03-11-2024 Hemoglobin (Bld) [Mass/Vol] 13.8 g/dL Normal 13.0-16.5 [facility] Comment on above: Order Comment: 109.1 Performed By: #### L 100.0100 ####[facility] [address] [place], [address] Immature granulocytes/100 WB C Auto (Bld)Ordered By: Renard Burgos on 03-11-2024 Immature granulocytes/100 WBC (Bld) 0.500 % 0.0-0.9 [facility] Comment on above: IG% - Immature Granu locytes (promyelocytes, myelocytes and metamyelocytes) > 1% indicates that a LEFT SHIFT is Present. Lymphocytes Auto (Unsp spec) [#/Vol]Ordered By: Renard Burgos on 03-11-2024 Lymphocytes (Bld) [#/Vol] 2.50 10*3/uL 0.83-4.51 [facility] MCV (mean corpuscular volume ) determinationOrdered By: Renard Burgos on 03-11-2024 MCV (RBC) [Entitic vol] 91.4 fL Normal 80-94 [facility] Comment on above: Order Comment: 109.1 Performed By: #### L 100.0100 ####[facility] [address] [place], [address] Mean corpuscular hemoglobin (MCH) determinationOrdered By: Renard Burgos on 03-11-2024 MCH (RBC) [Entitic mass] 30.4 pg Normal 27.0-32.0 [facility] Comment on above: Order Comment: 109.1 Performed By: #### L 100.0100 ####[facility] [address] [place], [address] Mean corpuscular hemoglobin concentration (MCHC) determinationOrdered By: Renard Burgos on 03-11-2024 MCHC (RBC) [Mass/Vol] 33.3 g/dL Normal 32-36 [facility] Comment on above: Order Comment: 109.1 Performed By: #### L 100.0100 ####[facility] [address] [place], [address] Mean platelet volume determi nationOrdered By: Renard Burgos on 03-11-2024 Platelet mean volume (Bld) [Entitic vol] 11.0 fL Normal 6.2-12.0 [facility] Comment on above: Order Comment: 109.1 Performed By: #### L 100.0100 ####[facility] [address] [place] [place], [address] Monocyte percentageOrdered B y: Renard Burgos on 03-11-2024 Monocytes/100 WBC (Bld) 9.0 % Normal 0-10 [facility] Comment on above: Order Comment: 109.1 Performed By: #### L 100.0100 ####[facility] [address] [place], [address] Neutrophil percentageOrdered By: Renard Burgos on 03-11-2024 Neutrophils/100 WBC (Bld) 63.8 % Normal 47-70 [facility] Comment on above: Order Comment: 109.1 Performed By: #### L 100.0100 ####[facility] [address] [place], [address] Nucleated red blood cell per centageOrdered By: Renard Burgos on 03-11-2024 Nucleated RBC/100 WBC (Bld) [Ratio] 0 % 0-5 [facility] Platelet countOrdered By: Garrick Bhatt on 03-11-2024 Platelets (Bld) [#/Vol] 220 10*3/uL Normal 150-450 [facility] Comment on above: Order Comment: 109.1 Performed By: #### L 100.0100 ####[facility] [address], [address] White blood cell (WBC) count Ordered By: Renard Burgos on 03-11-2024 WBC (Bld) [#/Vol] 9.8 10*3/uL Normal 4.4-11.0 [facility] Comment on above: Order Comment: 109.1 Performed By: #### L 100.0100 ####[facility] [address] [place], [address] CBC W/Diff, Automatedon 11-0 4-2024 Absolute Lymph 1.99 X10 3/uL Normal 0.83-4.51 [facility] Comment on above: Order Comment: 109.1 Performed By: #### L 100.0100 ####[facility] [address] [place], [address] Absolute Neut 5.3 X10 3/uL Normal 2.0-7.7 [facility] Comment on above: Order Comment: 109.1 Performed By: #### L 100.0100 ####[facility] [address] [place], [address] Basophils/100 WBC (Bld) 0.6 % Normal 0-1 [facility] Comment on above: Order Comment: 109.1 Performed By: #### L 100.0100 ####[facility] [address], [address] Eosinophils/100 WBC (Bld) 0.7 % Normal 0-5 [facility] Comment on above: Order Comment: 109.1 Performed By: #### L 100.0100 ####[facility] [address], [address] Erythrocyte distribution width (RBC) [Ratio] 12.7 % Normal 11.6-14.6 [facility] Comment on above: Order Comment: 109.1 Performed By: #### L 100.0100 ####[facility] [address] [place], [address] Hematocrit (Bld) [Volume fraction] 42.1 % Normal 40-54 [facility] Comment on above: Order Comment: 109.1 Performed By: #### L 100.0100 ####[facility] [address] [place], [address] Hemoglobin (Bld) [Mass/Vol] 14.0 g/dL Normal 13.0-16.5 [facility] Comment on above: Order Comment: 109.1 Performed By: #### L 100.0100 ####[facility] [address] [place], [address] IG% 0.400 Normal 0.0-0.9 [facility] Comment on above: Order Comment: 109.1 Result Comment: IG% - Immature Granulocytes (promyelocytes, myelocytes andmetamyelocytes) > 1% indicates that a LEFT SHIFT is Present. Performed By: #### L 100.0100 ####[facility] [address] [place], [address] Lymphocytes/100 WBC (Bld) 24.5 % Normal 19-41 [facility] Comment on above: Order Comment: 109.1 Performed By: #### L 100.0100 ####[facility] [address] [place], [address] MCH (RBC) [Entitic mass] 30.2 pg Normal 27.0-32.0 [facility] Comment on above: Order Comment: 109.1 Performed By: #### L 100.0100 ####[facility] [address] [place], [address] MCHC (RBC) [Mass/Vol] 33.3 g/dL Normal 32-36 [facility] Comment on above: Order Comment: 109.1 Performed By: #### L 100.0100 ####[facility] [address] [place], [address] MCV (RBC) [Entitic vol] 90.7 fL Normal 80-94 [facility] Comment on above: Order Comment: 109.1 Performed By: #### L 100.0100 ####[facility] [address] [place], [address] Monocytes/100 WBC (Bld) 8.2 % Normal 0-10 [facility] Comment on above: Order Comment: 109.1 Performed By: #### L 100.0100 ####[facility] [address] [place], [address] Neutrophils/100 WBC (Bld) 65.6 % Normal 47-70 [facility] Comment on above: Order Comment: 109.1 Performed By: #### L 100.0100 ####[facility] [address] [place], [address] Nucleated RBC (Bld) [#/Vol] 0 10*3/uL Normal 0-5 [facility] Comment on above: Order Comment: 109.1 Performed By: #### L 100.0100 ####[facility] [address] [place], [address] Platelet mean volume (Bld) [Entitic vol] 11.0 fL Normal 6.2-12.0 [facility] Comment on above: Order Comment: 109.1 Performed By: #### L 100.0100 ####[facility] [address] [place], [address] Platelets (Bld) [#/Vol] 216 10*3/uL Normal 150-450 [facility] Comment on above: Order Comment: 109.1 Performed By: #### L 100.0100 ####[facility] [address] [place], [address] RBC (Bld) [#/Vol] 4.64 10*6/uL Normal 4.6-6.2 [facility] Comment on above: Order Comment: 109.1 Performed By: #### L 100.0100 ####[facility] [address] [place], [address] RDW SD 41.9 fl Normal 35.1-43.9 [facility] Comment on above: Order Comment: 109.1 Performed By: #### L 100.0100 ####[facility] [address] [place], [address] WBC (Bld) [#/Vol] 8.1 10*3/uL Normal 4.4-11.0 [facility] Comment on above: Order Comment: 109.1 Performed By: #### L 100.0100 ####[facility] [address] [place], [address] CBC W/Diff, Automatedon 10- Absolute Lymph 2.15 X10 3/uL Normal 0.83-4.51 [facility] Comment on above: Order Comment: 109.1 Performed By: #### L 100.0100 ####[facility] [address] [place], [address] Absolute Neut 7.1 X10 3/uL Normal 2.0-7.7 [facility] Comment on above: Order Comment: 109.1 Performed By: #### L 100.0100 ####[facility] [address], [address] Basophils/100 WBC (Bld) 0.4 % Normal 0-1 [facility] Comment on above: Order Comment: 109.1 Performed By: #### L 100.0100 ####[facility] [address] [place], [address] Eosinophils/100 WBC (Bld) 0.6 % Normal 0-5 [facility] Comment on above: Order Comment: 109.1 Performed By: #### L 100.0100 ####[facility] [address] [place], [address] Erythrocyte distribution width (RBC) [Ratio] 12.6 % Normal 11.6-14.6 [facility] Comment on above: Order Comment: 109.1 Performed By: #### L 100.0100 ####[facility] [address], [address] Hematocrit (Bld) [Volume fraction] 40.2 % Normal 40-54 [facility] Comment on above: Order Comment: 109.1 Performed By: #### L 100.0100 ####[facility] [address] [place], [address] Hemoglobin (Bld) [Mass/Vol] 13.6 g/dL Normal 13.0-16.5 [facility] Comment on above: Order Comment: 109.1 Performed By: #### L 100.0100 ####[facility] [address] [place], [address] IG% 0.500 Normal 0.0-0.9 [facility] Comment on above: Order Comment: 109.1 Result Comment: IG% - Immature Granulocytes (promyelocytes, myelocytes andmetamyelocytes) > 1% indicates that a LEFT SHIFT is Present. Performed By: #### L 100.0100 ####[facility] [address] [place], [address] Lymphocytes/100 WBC (Bld) 20.9 % Normal 19-41 [facility] Comment on above: Order Comment: 109.1 Performed By: #### L 100.0100 ####[facility] [address] [place], [address] MCH (RBC) [Entitic mass] 30.6 pg Normal 27.0-32.0 [facility] Comment on above: Order Comment: 109.1 Performed By: #### L 100.0100 ####[facility] [address] [place], [address] MCHC (RBC) [Mass/Vol] 33.8 g/dL Normal 32-36 [facility] Comment on above: Order Comment: 109.1 Performed By: #### L 100.0100 ####[facility] [address] [place], [address] MCV (RBC) [Entitic vol] 90.5 fL Normal 80-94 [facility] Comment on above: Order Comment: 109.1 Performed By: #### L 100.0100 ####[facility] [address] [place], [address] Monocytes/100 WBC (Bld) 8.5 % Normal 0-10 [facility] Comment on above: Order Comment: 109.1 Performed By: #### L 100.0100 ####[facility] [address] [place], [address] Neutrophils/100 WBC (Bld) 69.1 % Normal 47-70 [facility] Comment on above: Order Comment: 109.1 Performed By: #### L 100.0100 ####[facility] [address] [place], [address] Nucleated RBC (Bld) [#/Vol] 0 10*3/uL Normal 0-5 [facility] Comment on above: Order Comment: 109.1 Performed By: #### L 100.0100 ####[facility] [address] [place], [address] Platelet mean volume (Bld) [Entitic vol] 11.2 fL Normal 6.2-12.0 [facility] Comment on above: Order Comment: 109.1 Performed By: #### L 100.0100 ####[facility] [address] [place], [address] Platelets (Bld) [#/Vol] 226 10*3/uL Normal 150-450 [facility] Comment on above: Order Comment: 109.1 Performed By: #### L 100.0100 ####[facility] [address] [place], [address] RBC (Bld) [#/Vol] 4.44 10*6/uL Low 4.6-6.2 [facility] Comment on above: Order Comment: 109.1 Performed By: #### L 100.0100 ####[facility] [address] [place], [address] RDW SD 41.5 fl Normal 35.1-43.9 [facility] Comment on above: Order Comment: 109.1 Performed By: #### L 100.0100 ####[facility] [address] [place], [address] WBC (Bld) [#/Vol] 10.3 10*3/uL Normal 4.4-11.0 [facility] Comment on above: Order Comment: 109.1 Performed By: #### L 100.0100 ####[facility] [address] [place], [address] Progress Noteon 11-22-2023 Progress Note Speech-Language Pathology SPEECH LANGUAGE PATHOLOGY [facility] Modified Barium Swallow Study [...] despite effort. 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 Frequency: Per treating SPRING SALVAGE WORKER Barriers: large osteophytes, bridging with anterior projection [...] Prior MBSS?: No, unable to locate in [facility] Current Diet: Puree diet with ?liquid (no information from [place]) Textures tested: - thin liquid, (cup edge) - mildly thick liquid, (cup edge) - puree, (teaspoon) Patient position: lateral Past Medical History: Past Medical History: Diagnosis Date TREVER (acute kidney injury) ([facility]/HCC) ([facility]) Alcohol abuse 07/08/2018 Anxiety C1 spinal cord injury ([facility]/HCC) ([facility]) Depression Fall 06/2018 Schizophrenia ([facility]) Past Surgical History: Past Surgical History: Procedure Laterality Date CERVICAL FUSION 07/09/2014 C2-6 cervical fusion GASTROSTOMY TUBE PLACEMENT 07/13/2018 TRACHEOSTOMY 07/13/2018 Admission Diagnosis: Patient Active Problem List Diagnosis Date Noted Respiratory syncytial virus (RSV) 03/22/2021 Hypoxia 03/19/2021 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[facility]) 08/16/2018 Chronic latent schizophrenia ([facility]) 08/15/2018 Prolonged Q-T interval on ECG 08/15/2018 Abdominal wall abscess 08/15/2018 Central cord syndrome ([facility]/HCC) ([facility]) 08/15/2018 Respiratory failure after trauma ([facility]) 08/15/2018 Pressure ulcer of sacral region, stage 2 ([facility]) 08/09/2018 Urinary retention 07/28/2018 Acute respiratory failure with hypoxia ([facility]) 07/26/2018 Mild bibasilar atelectasis 07/26/2018 Hospital-acquired pneumonia 07/26/2018 Bilateral pleural effusion 07/26/2018 Ileus (CMS/HCC) ([facility]) 07/23/2018 TREVER (acute kidney injury) ([facility]) 07/23/2018 Hypokalemia 07/21/2018 Vertebral artery occlusion, bilateral 07/11/2018 Vitamin D insufficiency 07/10/2018 Alcohol abuse 07/08/2018 Closed wedge compression fracture of first thoracic vertebra ([facility]) 07/08/2018 Traumatic nondisp spondylolisthesis of C3 vertebra with closed fx, initial encounter ([facility]) 07/08/2018 Closed fracture dislocation of cervical spine ([facility]) 07/08/2018 Pain: Pt denies any current pain. Reason for current admission: Pt with h/o of PEG and trach from 2019. Pt is currently decannulated. 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 Noted very large connective [...] posterior spill (more content not included)... Normal [facility] RF videography Hypopharynx a nd Esophagus Views for swallowing function W speech and W barium contrast Rosalino 11-22-2023 Abnormal findings as described above. Please refer to the speech pathologist 's report for additional details and recommendations. Report Dictated on Electronically Signed By: Nir Cancino MD Electronically Signed Date/Time: 11/22/2023 1:57 PM [facility] [facility] 1955 [id number] Exam Date/Time: 11/22/2023 12:53 Procedure: FL MODIFIED BARIUM WITH VIDEO AND SPEECH Ordering Provider: BURGOS PETER Reason For Exam: r13.12, r63.3 MODIFIED BARIUM SWALLOW (COOKIE SWALLOW) History: Dysphagia. Aspiration. Wet voice. Fluoroscopy dose: Kar = 37.3 mGy Technique: The exam was [...] not visualized in this exam for evaluation. [facility] Nir Cancino MD - 11/22/2023 Patient Name: [facility]ATH[facility] HOOPER : 1955 [id number] Exam Date/Time: 11/22/2023 12:53 Procedure: FL MODIFIED [...] Electronically Signed Date/Time: 11/22/2023 1:57 PM EDT [facility] Radiology Study observation (narrative) [facility] Hypopharynx a nd Esophagus Views for swallowing function W speech and W barium contrast POOrdered By: Nir Cancino on 11-22-2023 [facility] Work Phone: CBC W Auto Differential pane l (Bld)on 10-02-2023 Basophils (Bld) [#/Vol] 0.0 10*3/uL 0.0 - 0.2 10*3/uL [facility] Basophils/100 WBC (Bld) 0.3 % 0.0 - 2.0 % [facility] Eosinophils (Bld) [#/Vol] 0.0 10*3/uL 0.0 - 0.5 10*3/uL [facility] Eosinophils/100 WBC (Bld) 0.0 % 0.0 - 6.0 % [facility] Erythrocyte distribution width (RBC) [Ratio] 13.0 % 11.5 - 15.0 % [facility] Hematocrit (Bld) [Volume fraction] 37.8 % Low 40.0 - 52.0 % [facility] Hemoglobin (Bld) [Mass/Vol] 13.0 g/dL 13.0 - 18.0 g/dL [facility] Immature granulocytes (Bld) [#/Vol] 0.1 10*3/uL High NINF - 0.1 10*3/uL [facility] Immature granulocytes/100 WBC (Bld) 0.5 % 0.0 - 2.0 % [facility] Interpretation and review of laboratory results Abnormal [facility] Lymphocytes (Bld) [#/Vol] 0.9 10*3/uL Low 1.0 - 4.3 10*3/uL [facility] Lymphocytes/100 WBC (Bld) 8.4 % Low 15.0 - 45.0 % [facility] MCH (RBC) [Entitic mass] 30.3 pg 26.0 - 34.0 pg [facility] MCHC (RBC) [Mass/Vol] 34.4 % 30.5 - 36.0 % [facility] MCV (RBC) [Entitic vol] 88.1 fL 77.0 - 99.0 fL [facility] Monocytes (Bld) [#/Vol] 0.9 10*3/uL 0.0 - 0.9 10*3/uL [facility] Monocytes/100 WBC (Bld) 8.2 % 5.0 - 13.0 % [facility] Neutrophils (Bld) [#/Vol] 8.9 10*3/uL High 1.8 - 7.5 10*3/uL [facility] Neutrophils/100 WBC (Bld) 82.6 % High 38.0 - 82.0 % [facility] Nucleated RBC/100 WBC (Bld) [Ratio] 0.0 % [facility] Platelet mean volume (Bld) [Entitic vol] 10.7 fL 9.0 - 12.7 fL [facility] Platelets (Bld) [#/Vol] 148 10*3/uL 140 - 440 10*3/uL [facility] RBC (Bld) [#/Vol] 4.29 10*6/uL Low 4.40 - 5.9 0 10*6/uL [facility] WBC (Bld) [#/Vol] 10.7 10*3/uL 3.6 - 10.7 10*3/uL [facility] CBC WITH AUTO DIFFERENTIALon 10-02-2023 Basophils (Bld) [#/Vol] 0.0 10*3/uL Normal 0.0-0.2 [facility] Comment on above: Performed By: #### L [id number] #### Twister Operator: CYNDI LILLY ([id number]) [facility] [address] Basophils/100 WBC (Bld) 0.3 % Normal 0.0-2.0 [facility] Comment on above: Performed By: #### L [id number] #### Twister Operator: CYNDI LILLY ([id number]) [facility] ([facility] [address] Eosinophils (Bld) [#/Vol] 0.0 10*3/uL Normal 0.0-0.5 [facility] Comment on above: Performed By: #### L [id number] #### Twister Operator: CYNDI LILLY ([id number]) [facility] [address] Eosinophils/100 WBC (Bld) 0.0 % Normal 0.0-6.0 [facility] Comment on above: Performed By: #### L [id number] #### Twister Operator: CYNDI LILLY ([id number]) [facility] [address] Erythrocyte distribution width (RBC) [Ratio] 13.0 % Normal 11.5-15.0 [facility] Comment on above: Performed By: #### L [id number] #### Twister Operator: CYNDI LILLY ([id number]) [facility] [address] Hematocrit (Bld) [Volume fraction] 37.8 % Low 40.0-52.0 [facility] Comment on above: Performed By: #### L [id number] #### Twister Operator: CYNDI LILLY ([id number]) [facility] ([facility]) [address] Hemoglobin (Bld) [Mass/Vol] 13.0 g/dL Normal 13.0-18.0 [facility] Comment on above: Performed By: #### L [id number] #### Twister Operator: CYNDI LILLY ([id number]) [facility] ([facility]) [address] IMMATURE GRANS % 0.5 % Normal 0.0-2.0 [facility] Comment on above: Performed By: #### L [id number] #### Twister Operator: CYNDI LILLY ([id number]) [facility] ([facility]) [address] IMMATURE GRANS ABSOLUTE 0.1 10*3/uL High <0.1 [facility] Comment on above: Performed By: #### L [id number] #### Twister Operator: CYNDI LILLY ([id number]) [facility] [address] [place] [address] [place] Lymphocytes (Bld) [#/Vol] 0.9 10*3/uL Low 1.0-4.3 [facility] Comment on above: Performed By: #### L [id number] #### Twister Operator: CYNDI LILLY ([id number]) [facility] ([facility] [address] Lymphocytes/100 WBC (Bld) 8.4 % Low 15.0-45.0 [facility] Comment on above: Performed By: #### L [id number] #### Twister Operator: CYNDI LILLY ([id number]) [facility] (SBHLAB) [address] MCH (RBC) [Entitic mass] 30.3 pg Normal 26.0-34.0 [facility] Comment on above: Performed By: #### L [id number] #### Twister Operator: CYNDI LILLY ([id number]) [facility] (SB[facility]) [address] MCHC 34.4 % Normal 30.5-36.0 [facility] Comment on above: Performed By: #### L [id number] #### Twister Operator: CYNDI LILLY ([id number]) [facility] (SB[facility]) [address] MCV (RBC) [Entitic vol] 88.1 fL Normal 77.0-99.0 [facility] Comment on above: Performed By: #### L [id number] #### Twister Operator: CYNDI LILLY ([id number]) [facility] (SB[facility]) [address] Monocytes (Bld) [#/Vol] 0.9 10*3/uL Normal 0.0-0.9 [facility] Comment on above: Performed By: #### L [id number] #### Twister Operator: CYNDI LILLY ([id number]) [facility] (SB[facility]) [address] Monocytes/100 WBC (Bld) 8.2 % Normal 5.0-13.0 [facility] Comment on above: Performed By: #### L [id number] #### Twister Operator: CYNDI LILLY ([id number]) [facility] [place] ([facility]) [address] NEUTROPHILS ABSOLUTE 8.9 10*3/uL High 1.8-7.5 [facility] Comment on above: Performed By: #### L [id number] #### Twister Operator: CYNDI LILLY ([id number]) [facility] [place] ([facility]) [address] Neutrophils/100 WBC (Bld) 82.6 % High 38.0-82.0 [facility] Comment on above: Performed By: #### L [id number] #### Twister Operator: CYNDI LILLY ([id number]) [facility] [place] ([facility]) [address] NRBC 0.0 /100 WBCs Normal 0.0-2.0 [facility] Comment on above: Performed By: #### L [id number] #### Twister Operator: CYNDI LILLY ([id number]) [facility] [place] ([facility]) [address] Platelet mean volume (Bld) [Entitic vol] 10.7 fL Normal 9.0-12.7 [facility] Comment on above: Performed By: #### L [id number] #### Twister Operator: CYNDI LILLY ([id number]) [facility] [place] ([facility]) [address] [place] [address] [place] Platelets (Bld) [#/Vol] 148 10*3/uL Normal 140-440 [facility] Comment on above: Performed By: #### L [id number] #### Twister Operator: CYNDI LILLY ([id number]) [facility] [place] ([facility]) [address] [place] [address] [place] RBC (Bld) [#/Vol] 4.29 10*6/uL Low 4.40-5.90 [facility] Comment on above: Performed By: #### L [id number] #### Twister Operator: CYNDI LILLY ([id number]) [facility] [place] ([facility]) [address] WBC (Bld) [#/Vol] 10.7 10*3/uL Normal 3.6-10.7 [facility] Comment on above: Performed By: #### L [id number] #### Twister Operator: CYNDI LILLY ([id number]) [facility] [place] ([facility]) [address] COMPREHENSIVE METABOLIC PANE Reji 10-02-2023 Albumin [Mass/Vol] 3.7 g/dL Normal 3.5-5.0 [facility] Comment on above: Performed By: #### Alban AB17, [id number] ####Twister Operator: CYNDI LILLY ([id number])[facility] [place] ([facility])[address] ALP [Catalytic activity/Vol] 78 U/L Normal 38-126 [facility] Comment on above: Performed By: #### L AB17, [id number] ####Twister Operator: CYNDI LILLY ([id number])[facility] [place] ([facility])[address] ALT [Catalytic activity/Vol] 21 U/L Normal 0-49 [facility] Comment on above: Performed By: #### L AB17, [id number] ####Twister Operator: CYNDI LILLY ([id number])[facility] [place] ([facility])[address] Anion gap [Moles/Vol] 10 mmol/L Normal 3-13 [facility] Comment on above: Performed By: #### L AB17, [id number] ####Twister Operator: CYNDI LILLY ([id number])[facility] [place] ([facility])[address] [place] [address] [place] AST [Catalytic activity/Vol] 29 U/L Normal 15-46 [facility] Comment on above: Performed By: #### Alban YEH17, [id number] ####Twister Operator: CYNDI LILLY ([id number])[facility] (SBHLAB)[address] Bilirubin [Mass/Vol] 1.1 mg/dL Normal 0.2-1.3 [facility] Comment on above: Performed By: #### Alban AB17, [id number] ####Twister Operator: CYNDI LILLY ([id number])[facility] (SB[facility]AB)[address] Calcium [Mass/Vol] 7.8 mg/dL Low 8.4-10.4 [facility] Comment on above: Performed By: #### Alban SMITH, [id number] ####Twister Operator: CYNDI LILLY ([id number])[facility] (SBHLAB)[address] [place] [address] [place] Chloride [Moles/Vol] 102 mmol/L Normal 98-107 [facility] Comment on above: Performed By: #### Alban AB17, [id number] ####Twister Operator: CYNDI LILLY ([id number])[facility] ([facility])[address] [place] [address] [place] CO2 [Moles/Vol] 23 mmol/L Normal 22-30 [facility] Comment on above: Performed By: #### L AB17, [id number] ####Twister Operator: CYNDI LILLY ([id number])[facility] [place] (SBHLAB)[address] [place] [address] [place] Creatinine [Mass/Vol] 0.58 mg/dL Low 0.66-1.25 [facility] Comment on above: Performed By: #### Alban AB17, [id number] ####Twister Operator: CYNDI LILLY ([id number])[facility] (SBHLAB)[address] GLOMERULAR FILTRATION RATE ML/MIN/1.73 SQ M.PREDICTED >90.0 Normal >60.0 [facility] Comment on above: Result Comment: Calc ulation based on the Chronic Kidney Disease Epidemiology Collaboration (CKD-EPI) equation refit without adjustment for race Performed By: #### Alban YEH17, [id number] ####Twister Operator: CYNDI LILLY ([id number])[facility] (SBHLAB)[address] Glucose [Mass/Vol] 111 mg/dL High 70-100 [facility] Comment on above: Performed By: #### Alban YEH17, [id number] ####Twister Operator: CYNDI LILLY ([id number])[facility] (SBHLAB)[address] Potassium [Moles/Vol] 4.0 mmol/L Normal 3.5-5.1 [facility] Comment on above: Performed By: #### Alban YEH17, [id number] ####Twister Operator: CYNDI LILLY ([id number])[facility] (HLAB)[address] Protein [Mass/Vol] 6.5 g/dL Normal 6.3-8.2 [facility] Comment on above: Performed By: #### Alban AB17, [id number] ####Twister Operator: CYNDI LILLY ([id number])[facility] (SBHLAB)[address] [place] [address] [place] Sodium [Moles/Vol] 135 mmol/L Normal 135-145 [facility] Comment on above: Performed By: #### L AB17, [id number] ####Twister Operator: CYNDI LILLY ([id number])[facility] (SB[facility]AB)[address] [place] [address] [place] Urea nitrogen [Mass/Vol] 18 mg/dL Normal 9-20 [facility] Comment on above: Performed By: #### L AB17, [id number] ####Twister Operator: CYNDI LILLY ([id number])[facility] (SBHL)[address] [place] [address] CT HEAD WO IV CONTRASTon CT HEAD WO IV CONTRAST Patient Name: KATHYA YU : 1955 Exam Date/Time: 10/02/2023 11:03 Procedure: CT HEAD WO IV CONTRAST Ordering Provider: TOLEDO AMY Reason For Exam: Neuro deficit, acute, stroke suspected EXAMINATION: CT HEAD WO IV CONTRAST HISTORY: Neuro deficit, acute, stroke suspected - - - - - [id number] - - - - TECHNIQUE: CT head [...] she has seen him for that day, mini shifter did not report any problems. EMS [...] has no complaints at this time. Normal [facility] CT Head WO contraston [address] evidence of an acute intracranial abnormality. Report Dictated on Electronically Signed By: Maria Eugenia Ruiz MD Electronically Signed Date/Time: 10/02/2023 11:09 AM [facility] Patient Name: KATHYA HOOPER : 1955 Exam Date/Time: 10/02/2023 11:03 Procedure: CT HEAD WO IV CONTRAST Ordering Provider: TOLEDO AMY Reason For Exam: Neuro deficit, acute, stroke suspected EXAMINATION: CT HEAD WO IV CONTRAST HISTORY: Neuro deficit, acute, stroke suspected - - - - - [id number] - - - - TECHNIQUE: CT head [...] air cells and the left sphenoid sinus [facility] Maria Eugenia Ruiz MD - 10/02/2023 Patient Name: KATHYA HOOPER : 1955 Exam Date/Time: 10/02/2023 11:03 Procedure: CT HEAD WO IV CONTRAST Ordering Provider: TOLEDO AMY Reason For Exam: Neuro deficit, acute, stroke suspected EXAMINATION: CT HEAD WO IV CONTRAST HISTORY: Neuro deficit, acute, stroke suspected - - - - - [id number] - - - - TECHNIQUE: CT head [...] Date/Time: 10/02/2023 11:09 AM EDT [facility] Radiology Study observation (narrative) [facility] alth CT Head WO contrastOrdered B y: Maria Eugenia Ruiz on 10-02-2023 [facility] Work Phone: Comprehensive metabolic 1998 panelon 10-02-2023 Albumin [Mass/Vol] 3.7 g/dL 3.5 - 5.0 g/dL [facility] ALP [Catalytic activity/Vol] 78 U/L 38 - 126 U/L [facility] ALT [Catalytic activity/Vol] 21 U/L 0 - 49 U/L [facility] Anion gap [Moles/Vol] 10 mmol/L 3 - 13 mmol/L [facility] AST [Catalytic activity/Vol] 29 U/L 15 - 46 U/L [facility] Bilirubin [Mass/Vol] 1.1 mg/dL 0.2 - 1 .3 mg/dL [facility] Calcium [Mass/Vol] 7.8 mg/dL Low 8.4 - 10. 4 mg/dL [facility] Chloride [Moles/Vol] 102 mmol/L 98 - 10 7 mmol/L [facility] CO2 [Moles/Vol] 23 mmol/L 22 - 30 mmol/L [facility] Creatinine [Mass/Vol] 0.58 mg/dL Low 0.66 - 1.25 mg/dL [facility] GFR/1.73 sq M.predicted MDRD (S/P/Bld) [Vol rate/Area] - PINF [facility] Comment on above: Calculation based on the Chronic Kidney Disease Epidemiology Collaboration (CKD-EPI) equation refit without adjustment for race Glucose [Mass/Vol] 111 mg/dL High 70 - 100 mg/dL [facility] Interpretation and review of laboratory results Abnormal [facility] Potassium [Moles/Vol] 4.0 mmol/L 3.5 - 5.1 mmol/L [facility] Protein [Mass/Vol] 6.5 g/dL 6.3 - 8.2 g/dL [facility] Sodium [Moles/Vol] 135 mmol/L 135 - 145 mmol/L [facility] Urea nitrogen [Mass/Vol] 18 mg/dL 9 - 20 mg/dL [facility] ECG 12-LEADon 10-02-2023 ECG 12-LEAD IMPRESSION: Sinus tachycardia Left bundle branch block ST elevation secondary to IVCD Electronically Signed On 10-02-2023 12:40:15 EDT by Fei Farooq [facility] ED Nursing Noteon 10-02-2023 ED Nursing Note [facility] at bedside at this time Mami Lantigua RN 10/02/23 1427 [facility] ED Nursing Note This RN gave report to Marnie at [facility] at this time Mami Lantigua RN 10/02/23 1358 [facility] ED Nursing Note This RN went to evaluate patient, was on 2L o2 and does not wear at baseline, plan is dc, this RN turned o2 off to trial patient, spo2 monitor on Mami Lantigua RN 10/02/23 1325 Normal [facility] ED Nursing Note Pt to ct via cart Eloisa Alfaro RN 10/02/23 1043 [facility] ED Nursing Note Pt was [place] [facility] from [facility] for Left sided facial droop. Per EMS nurse is new and does not know patient very well but he is A&O x 2 at baseline. Per EMS the nurse states it was 20 mins ago. Contacted nurse that was caring for him and she states that was the first time she has seen him for that day, mini shifter did not report any problems. EMS [...] facility. Hx of schizophrenia. BS 131. Normal [facility] ED Provider Noteon ED Provider Note [facility] [...] to the emergency department from a local fdc facility where he is currently a resident. [...] History: Diagnosis Date TREVER (acute kidney injury) ([facility] ([facility]) Alcohol abuse 07/08/2018 Anxiety C1 spinal cord injury ([facility]) ([facility]) Depression Fall 06/2018 Schizophrenia ([facility]) SURGICALHISTORY Past Surgical History: Procedure Laterality Date [...] needed for wound care., Historical Med cholecalciferol (SM Vitamin D3) 25 MCG (1000 [...] EmergencyPhysician): Interpret (more content not included)... Normal [facility] ED Provider Note Emergency Department Encounter [...] I.cardiac [Mass/Vol] ng/mL NINF - 0.034 ng/mL [facility] Laboratory - Coagulationon 0 10-02-2023 aPTT Coag (PPP) [Time] 29.6 s 20.0 - 30.5 s [facility] INR Coag (PPP) [Relative time] 1.1 {INR} 0.9 - 1.1 [facility] Comment on above: Recommended Anticoag ulant [...] [Time] 11.6 s 9.0 - 12.0 s [facility] No Panel Informationon 10-01 Heart Rate 103 bpm [facility] Solvesting P [place] 48 degrees [facility] IN Interval 172 ms [facility] QRS [place] -38 degrees [facility] QRSD Interval 159 ms [facility]alt [facility] QT Interval 405 ms [facility] QTC Interval 532 ms [facility] T Wave [place] 109 degrees [facility] Sinus tachycardia Left bundle branch block ST elevation secondary to IVCD Electronically Signed On 10-02-2023 12:40:15 EDT by Fei Farooq CV Fei Lopez MD - 10/02/2023 IMPRESSION: Sinus tachycardia Left bundle branch block ST elevation secondary to IVCD Electronically Signed On 10-02-2023 12:40:15 EDT by Fei Farooq [facility] Interpretation and review of laboratory results Normal [facility] PROTIME AND APTTon aPTT Coag (Bld) [Time] 29.6 s Normal 20.0-30.5 [facility] Comment on above: Performed By: #### L [id number] ####Twister Operator: CYNDI LILLY ([id number])[facility] ([facility])[address] [place] [address] INR Coag (PPP) [Relative time] 1.1 {INR} Normal 0.9-1.1 [facility] Comment on above: Result Comment: Yefri [...] prevent Myocardial Infarction Performed By: #### L [id number] ####Twister Operator: CYNDI LILLY ([id number])[facility] ([facility])[address] [place] [address] PT Coag (PPP) [Time] 11.6 s Normal 9.0-12.0 [facility] Comment on above: Performed By: #### L [id number] ####Twister Operator: CYNDI LILLY ([phone])[facility] (SB[facility]AB)[address] TROPONIN, WITH SERIAL REFLEX on 10-02-2023 Troponin I.cardiac [Mass/Vol] ng/mL Normal <0.034 [facility] Comment on above: Result Comment: SHARON Stevens COMMENTS: Patients with high levels of Biotin oral intake (ie >5 mg/day) may have falsely decreased Troponin levels. Performed By: #### L AB17, [id number] ####Twister Operator: CYNDI LILLY ([id number])[facility] (SBHLAB)[address] Troponin I.cardiac [Mass/Vol ]on 10-02-2023 Interpretation and review of laboratory results Normal [facility] Patients with high levels of Biotin oral intake (ie >5 mg/day) may have falsely decreased Troponin levels. [facility] XR Chest Single viewon 10-01 No acute cardiopulmonary disease. Report Dictated on Electronically Signed By: Maria Eugenia Ruiz MD Electronically Signed Date/Time: 10/02/2023 11:06 AM EDT [facility] Patient Name: KATHYA HOOPER DOB: 1955 [...] spine and shoulders. No acute osseous findings. [facility] Maria Eugenia Ruiz MD - [...] Electronically Signed Date/Time: 10/02/2023 11:06 AM EDT [facility] Radiology Study observation (narrative) [facility] Absolute lymphocyte countOrd ered By: Renard Burgos on 08-07-2023 Lymphocytes Auto (Unsp spec) [#/Vol] 2.23 10*3/uL 0.83-4.51 [facility] Automated lymphocyte count a s percentage of total leukocytesOrdered By: Renard Burgos on 08-07-2023 Lymphocytes/100 WBC Auto (Unsp spec) 23.9 % 19-41 [facility] Basophil percentageOrdered B y: Renard Burgos on 08-07-2023 Basophils/100 WBC (Bld) 0.4 % 0-1 [facility] Eosinophils/100 WBC (Bld) 0.4 % 0-5 [facility] Hemoglobin (Bld) [Mass/Vol] 13.9 g/dL 13.0-16.5 [facility] Monocytes/100 WBC (Bld) 8.0 % 0-10 [facility] Neutrophils (Bld) [#/Vol] 6.2 10*3/uL 2.0-7.7 [facility] Neutrophils/100 WBC (Bld) 66.9 % 47-70 [facility] WBC (Bld) [#/Vol] 9.3 10*3/uL 4.4-11.0 [facility] Determination of erythrocyte mean corpuscular volume (MCV)Ordered By: Renard Burgos on 08-07-2023 MCV (RBC) [Entitic vol] 90.0 fL 80-94 [facility] Erythrocyte distribution wid th ratioOrdered By: Renard Burgos on 08-07-2023 Erythrocyte distribution width (RBC) [Ratio] 13.0 % 11.6-14.6 [facility] Erythrocyte distribution wid th standard deviationOrdered By: Renard Burgos on 08-07-2023 Erythrocyte distribution width (RBC) [Entitic vol] 42.5 fL 35.1-43.9 [facility] Hematocrit Auto (Bld) [Volum e fraction]Ordered By: Renard Burgos on 08-07-2023 Hematocrit (Bld) [Volume fraction] 42.5 % 40-54 [facility] Immature granulocytes/100 WB C Auto (Bld)Ordered By: Renard Burgos on 08-07-2023 Immature granulocytes/100 WBC (Bld) 0.400 % 0.0-0.9 [facility] Comment on above: IG% - Immature Granu locytes (promyelocytes, myelocytes and metamyelocytes) > 1% indicates that a LEFT SHIFT is Present. Laboratory - Hematology and Cell countsOrdered By: Renard Burgos on 08-07-2023 MCH (RBC) [Entitic mass] 29.4 pg 27.0-32.0 [facility] MCHC (RBC) [Mass/Vol] 32.7 g/dL 32-36 [facility] Nucleated RBC/100 WBC (Bld) [Ratio] 0 % 0-5 [facility] Platelet mean volume (Bld) [Entitic vol] 10.7 fL 6.2-12.0 [facility] Platelets (Bld) [#/Vol] 210 10*3/uL 150-450 [facility] RBC Auto (Bld) [#/Vol]Ordere d By: Renard Burgos on 08-07-2023 RBC (Bld) [#/Vol] 4.72 10*6/uL 4.6-6.2 [facility] Absolute lymphocyte countOrd ered By: Renard Burgos on 07-31-2023 Lymphocytes Auto (Unsp spec) [#/Vol] 2.04 10*3/uL 0.83-4.51 [facility] Automated lymphocyte count a s percentage of total leukocytesOrdered By: Renard Burgos on 07-31-2023 Lymphocytes/100 WBC Auto (Unsp spec) 24.2 % 19-41 [facility] Basophil percentageOrdered B y: Renard Burgos on 07-31-2023 Basophils/100 WBC (Bld) 0.6 % 0-1 [facility] Eosinophils/100 WBC (Bld) 0.6 % 0-5 [facility] Hemoglobin (Bld) [Mass/Vol] 13.9 g/dL 13.0-16.5 [facility] Monocytes/100 WBC (Bld) 8.5 % 0-10 [facility] Neutrophils (Bld) [#/Vol] 5.5 10*3/uL 2.0-7.7 [facility] Neutrophils/100 WBC (Bld) 65.7 % 47-70 [facility] WBC (Bld) [#/Vol] 8.4 10*3/uL 4.4-11.0 [facility] Determination of erythrocyte mean corpuscular volume (MCV)Ordered By: Renard Burgos on 07-31-2023 MCV (RBC) [Entitic vol] 89.7 fL 80-94 [facility] Erythrocyte distribution wid th ratioOrdered By: Renard Burgos on 07-31-2023 Erythrocyte distribution width (RBC) [Ratio] 12.8 % 11.6-14.6 [facility] Erythrocyte distribution wid th standard deviationOrdered By: Renard Burgos on 07-31-2023 Erythrocyte distribution width (RBC) [Entitic vol] 42.2 fL 35.1-43.9 [facility] Hematocrit Auto (Bld) [Volum e fraction]Ordered By: Renard Burgos on 07-31-2023 Hematocrit (Bld) [Volume fraction] 41.7 % 40-54 [facility] Immature granulocytes/100 WB C Auto (Bld)Ordered By: Renard Burgos on 07-31-2023 Immature granulocytes/100 WBC (Bld) 0.400 % 0.0-0.9 [facility] Comment on above: IG% - Immature Granu locytes (promyelocytes, myelocytes and metamyelocytes) > 1% indicates that a LEFT SHIFT is Present. Laboratory - Hematology and Cell countsOrdered By: Renard Burgos on 07-31-2023 MCH (RBC) [Entitic mass] 29.9 pg 27.0-32.0 [facility] MCHC (RBC) [Mass/Vol] 33.3 g/dL 32-36 [facility] Nucleated RBC/100 WBC (Bld) [Ratio] 0 % 0-5 [facility] Platelet mean volume (Bld) [Entitic vol] 10.6 fL 6.2-12.0 [facility] Platelets (Bld) [#/Vol] 201 10*3/uL 150-450 [facility] RBC Auto (Bld) [#/Vol]Ordere d By: Renard Burgos on 07-31-2023 RBC (Bld) [#/Vol] 4.65 10*6/uL 4.6-6.2 [facility] Absolute lymphocyte countOrd ered By: Renard Burgos on 07-24-2023 Lymphocytes Auto (Unsp spec) [#/Vol] 2.00 10*3/uL 0.83-4.51 [facility] Automated lymphocyte count a s percentage of total leukocytesOrdered By: Renard Burgos on 07-24-2023 Lymphocytes/100 WBC Auto (Unsp spec) 26.2 % 19-41 [facility] Basophil percentageOrdered B y: Renard Burgos on 07-24-2023 Basophils/100 WBC (Bld) 0.7 % 0-1 [facility] Eosinophils/100 WBC (Bld) 0.7 % 0-5 [facility] Hemoglobin (Bld) [Mass/Vol] 14.2 g/dL 13.0-16.5 [facility] Monocytes/100 WBC (Bld) 6.4 % 0-10 [facility] Neutrophils (Bld) [#/Vol] 5.0 10*3/uL 2.0-7.7 [facility] Neutrophils/100 WBC (Bld) 65.6 % 47-70 [facility] WBC (Bld) [#/Vol] 7.6 10*3/uL 4.4-11.0 [facility] Determination of erythrocyte mean corpuscular volume (MCV)Ordered By: Renard Burgos on 07-24-2023 MCV (RBC) [Entitic vol] 89.8 fL 80-94 [facility] Erythrocyte distribution wid th ratioOrdered By: Renard Burgos on 07-24-2023 Erythrocyte distribution width (RBC) [Ratio] 12.8 % 11.6-14.6 [facility] Erythrocyte distribution wid th standard deviationOrdered By: Renard Burgos on 07-24-2023 Erythrocyte distribution width (RBC) [Entitic vol] 42.0 fL 35.1-43.9 [facility] Hematocrit Auto (Bld) [Volum e fraction]Ordered By: Renard Burgos on 07-24-2023 Hematocrit (Bld) [Volume fraction] 43.3 % 40-54 [facility] Immature granulocytes/100 WB C Auto (Bld)Ordered By: Renard Burgos on 07-24-2023 Immature granulocytes/100 WBC (Bld) 0.400 % 0.0-0.9 [facility] Comment on above: IG% - Immature Granu locytes (promyelocytes, myelocytes and metamyelocytes) > 1% indicates that a LEFT SHIFT is Present. Laboratory - Hematology and Cell countsOrdered By: Renard Burgos on 07-24-2023 MCH (RBC) [Entitic mass] 29.5 pg 27.0-32.0 [facility] MCHC (RBC) [Mass/Vol] 32.8 g/dL 32-36 [facility] Nucleated RBC/100 WBC (Bld) [Ratio] 0 % 0-5 [facility] Platelet mean volume (Bld) [Entitic vol] 11.0 fL 6.2-12.0 [facility] Platelets (Bld) [#/Vol] 215 10*3/uL 150-450 [facility] RBC Auto (Bld) [#/Vol]Ordere d By: Renard Burgos on 07-24-2023 RBC (Bld) [#/Vol] 4.82 10*6/uL 4.6-6.2 [facility] Absolute lymphocyte countOrd ered By: Renard Burgos on 07-17-2023 Lymphocytes Auto (Unsp spec) [#/Vol] 2.22 10*3/uL 0.83-4.51 [facility] Automated lymphocyte count a s percentage of total leukocytesOrdered By: Renard Burgos on 07-17-2023 Lymphocytes/100 WBC Auto (Unsp spec) 25.4 % 19-41 [facility] Basophil percentageOrdered B y: Renard Burgos on 07-17-2023 Basophils/100 WBC (Bld) 0.5 % 0-1 [facility] Cholesterol [Mass/Vol] 126 mg/dL <200 [facility] Comment on above: <200 mg/dL Desirable 200-240 mg/dL Borderline >240 mg/dL High Risk Eosinophils/100 WBC (Bld) 0.6 % 0-5 [facility] Hemoglobin (Bld) [Mass/Vol] 14.0 g/dL 13.0-16.5 [facility] Monocytes/100 WBC (Bld) 6.6 % 0-10 [facility] Neutrophils (Bld) [#/Vol] 5.8 10*3/uL 2.0-7.7 [facility] Neutrophils/100 WBC (Bld) 66.4 % 47-70 [facility] Triglyceride [Mass/Vol] 176 mg/dL <199 [facility] Comment on above: The drugs N-Acetylcy steine and Metamizole may falsely depress this assay.Serum Triglycerides Reference Interval Normal <150 mg/dL Borderline high 150 - 199 mg/dL High 200 - 499 mg/dL Very High > or = 500 mg/dL WBC (Bld) [#/Vol] 8.7 10*3/uL 4.4-11.0 [facility] Determination of erythrocyte mean corpuscular volume (MCV)Ordered By: Renard Burgos on 07-17-2023 MCV (RBC) [Entitic vol] 90.5 fL 80-94 [facility] Erythrocyte distribution wid th ratioOrdered By: Renard Burgos on 07-17-2023 Erythrocyte distribution width (RBC) [Ratio] 12.4 % 11.6-14.6 [facility] Erythrocyte distribution wid th standard deviationOrdered By: Renard Burgos on 07-17-2023 Erythrocyte distribution width (RBC) [Entitic vol] 41.1 fL 35.1-43.9 [facility] Hematocrit Auto (Bld) [Volum e fraction]Ordered By: Renard Burgos on 07-17-2023 Hematocrit (Bld) [Volume fraction] 42.8 % 40-54 [facility] Immature granulocytes/100 WB C Auto (Bld)Ordered By: Renard Burgos on 07-17-2023 Immature granulocytes/100 WBC (Bld) 0.500 % 0.0-0.9 [facility] Comment on above: IG% - Immature Granu locytes (promyelocytes, myelocytes and metamyelocytes) > 1% indicates that a LEFT SHIFT is Present. Laboratory - Chemistry and C hemistry - challengeOrdered By: Renard Burgos on 07-17-2023 Cholesterol in HDL [Mass/Vol] 28 mg/dL >40 [facility] Comment on above: The drugs N-Acetylcy steine and Metamizole may falsely depress this assay. Reference Range HDL <40 mg/dL Low HDL Cholesterol HDL >or= 60 mg/dL High HDL Cholesterol Cholesterol in LDL [Mass/Vol] 63 mg/dL 0-130 [facility] Laboratory - Hematology and Cell countsOrdered By: Renard Burgos on 07-17-2023 MCH (RBC) [Entitic mass] 29.6 pg 27.0-32.0 [facility] MCHC (RBC) [Mass/Vol] 32.7 g/dL 32-36 [facility] Nucleated RBC/100 WBC (Bld) [Ratio] 0 % 0-5 [facility] Platelet mean volume (Bld) [Entitic vol] 10.9 fL 6.2-12.0 [facility] Platelets (Bld) [#/Vol] 193 10*3/uL 150-450 [facility] No Panel InformationOrdered By: Renard Brugos on 07-17-2023 Vitamin D 25-Hydroxy 33.1 ng/mL [facility] Comment on above: Vitamin D 25(OH) Sta tus Range Deficiency <20 ng/mL (50nmol/L) Insufficiency 20 - 30 ng/mL (50 - 75 nmol/L) Sufficiency 30 - 100 ng/mL (75 - 250 nmol/L) Toxicity >100 ng/mL (>250 nmol/L) VLDL Cholesterol 35 mg/dL 5-40 [facility] RBC Auto (Bld) [#/Vol]Ordere d By: Renard Burgos on 07-17-2023 RBC (Bld) [#/Vol] 4.73 10*6/uL 4.6-6.2 [facility] Absolute lymphocyte countOrd ered By: Renard Burgos on 07-10-2023 Lymphocytes Auto (Unsp spec) [#/Vol] 2.14 10*3/uL 0.83-4.51 [facility] Automated lymphocyte count a s percentage of total leukocytesOrdered By: Renard Burgos on 07-10-2023 Lymphocytes/100 WBC Auto (Unsp spec) 24.7 % 19-41 [facility] Basophil percentageOrdered B y: Renard Burgos on 07-10-2023 Basophils/100 WBC (Bld) 0.3 % 0-1 [facility] Eosinophils/100 WBC (Bld) 0.3 % 0-5 [facility] Hemoglobin (Bld) [Mass/Vol] 13.8 g/dL 13.0-16.5 [facility] Monocytes/100 WBC (Bld) 7.8 % 0-10 [facility] Neutrophils (Bld) [#/Vol] 5.8 10*3/uL 2.0-7.7 [facility] Neutrophils/100 WBC (Bld) 66.4 % 47-70 [facility] WBC (Bld) [#/Vol] 8.7 10*3/uL 4.4-11.0 [facility] Determination of erythrocyte mean corpuscular volume (MCV)Ordered By: Renard Burgos on 07-10-2023 MCV (RBC) [Entitic vol] 88.9 fL 80-94 [facility] Erythrocyte distribution wid th ratioOrdered By: Renard Burgos on 07-10-2023 Erythrocyte distribution width (RBC) [Ratio] 12.6 % 11.6-14.6 [facility] Erythrocyte distribution wid th standard deviationOrdered By: Renard Burgos on 07-10-2023 Erythrocyte distribution width (RBC) [Entitic vol] 40.6 fL 35.1-43.9 [facility] Hematocrit Auto (Bld) [Volum e fraction]Ordered By: Renard Burgos on 07-10-2023 Hematocrit (Bld) [Volume fraction] 41.0 % 40-54 [facility] Immature granulocytes/100 WB C Auto (Bld)Ordered By: Renard Burgos on 07-10-2023 Immature granulocytes/100 WBC (Bld) 0.500 % 0.0-0.9 [facility] Comment on above: IG% - Immature Granu locytes (promyelocytes, myelocytes and metamyelocytes) > 1% indicates that a LEFT SHIFT is Present. Laboratory - Hematology and Cell countsOrdered By: Renard Burgos on 07-10-2023 MCH (RBC) [Entitic mass] 29.9 pg 27.0-32.0 [facility] MCHC (RBC) [Mass/Vol] 33.7 g/dL 32-36 [facility] Nucleated RBC/100 WBC (Bld) [Ratio] 0 % 0-5 [facility] Platelet mean volume (Bld) [Entitic vol] 11.0 fL 6.2-12.0 [facility] Platelets (Bld) [#/Vol] 215 10*3/uL 150-450 [facility] RBC Auto (Bld) [#/Vol]Ordere d By: Renard Burgos on 07-10-2023 RBC (Bld) [#/Vol] 4.61 10*6/uL 4.6-6.2 [facility] Absolute lymphocyte countOrd ered By: Renard Burgos on 07-03-2023 Lymphocytes Auto (Unsp spec) [#/Vol] 1.84 10*3/uL 0.83-4.51 [facility] Automated lymphocyte count a s percentage of total leukocytesOrdered By: Renard Burgos on 07-03-2023 Lymphocytes/100 WBC Auto (Unsp spec) 16.9 % 19-41 [facility] Basophil percentageOrdered B y: Renard Burgos on 07-03-2023 Basophil percentage 3.17 ng/mL 0.0-4.0 [facility] Comment on above: This test was perfor med using the TPSA assay method for the[facility] Center[facility] it Fil[facility] chemistry system. Values obtained with differentassay methods cannot be used interchangably.When changing PSA assays in the course of monitoring apatient, additional sequential testing should be carriedout to confirm baseline values. Basophils/100 WBC (Bld) 0.5 % 0-1 [facility] Eosinophils/100 WBC (Bld) 0.4 % 0-5 [facility] Hemoglobin (Bld) [Mass/Vol] 13.2 g/dL 13.0-16.5 [facility] Monocytes/100 WBC (Bld) 7.4 % 0-10 [facility] Neutrophils (Bld) [#/Vol] 8.1 10*3/uL 2.0-7.7 [facility] Neutrophils/100 WBC (Bld) 74.4 % 47-70 [facility] WBC (Bld) [#/Vol] 10.9 10*3/uL 4.4-11.0 [facility] Determination of erythrocyte mean corpuscular volume (MCV)Ordered By: Renard Burgos on 07-03-2023 MCV (RBC) [Entitic vol] 89.8 fL 80-94 [facility] Erythrocyte distribution wid th ratioOrdered By: Renard Burgos on 07-03-2023 Erythrocyte distribution width (RBC) [Ratio] 12.7 % 11.6-14.6 [facility] Erythrocyte distribution wid th standard deviationOrdered By: Renard Burgos on 07-03-2023 Erythrocyte distribution width (RBC) [Entitic vol] 41.9 fL 35.1-43.9 [facility] Hematocrit Auto (Bld) [Volum e fraction]Ordered By: Renard Burgos on 07-03-2023 Hematocrit (Bld) [Volume fraction] 40.3 % 40-54 [facility] Immature granulocytes/100 WB C Auto (Bld)Ordered By: Renard Burgos on 07-03-2023 Immature granulocytes/100 WBC (Bld) 0.400 % 0.0-0.9 [facility] Comment on above: IG% - Immature Granu locytes (promyelocytes, myelocytes and metamyelocytes) > 1% indicates that a LEFT SHIFT is Present. Laboratory - Hematology and Cell countsOrdered By: Renard Burgos on 07-03-2023 MCH (RBC) [Entitic mass] 29.4 pg 27.0-32.0 [facility] MCHC (RBC) [Mass/Vol] 32.8 g/dL 32-36 [facility] Nucleated RBC/100 WBC (Bld) [Ratio] 0 % 0-5 [facility] Platelet mean volume (Bld) [Entitic vol] 11.2 fL 6.2-12.0 [facility] Platelets (Bld) [#/Vol] 191 10*3/uL 150-450 [facility] RBC Auto (Bld) [#/Vol]Ordere d By: Renard Burgos on 07-03-2023 RBC (Bld) [#/Vol] 4.49 10*6/uL 4.6-6.2 [facility] Absolute lymphocyte countOrd ered By: Renard Burgos on 06-26-2023 Lymphocytes Auto (Unsp spec) [#/Vol] 2.23 10*3/uL 0.83-4.51 [facility] Automated lymphocyte count a s percentage of total leukocytesOrdered By: Renard Burgos on 06-26-2023 Lymphocytes/100 WBC Auto (Unsp spec) 27.3 % 19-41 [facility] Basophil percentageOrdered B y: Renard Burgos on 06-26-2023 Basophils/100 WBC (Bld) 0.5 % 0-1 [facility] Eosinophils/100 WBC (Bld) 0.7 % 0-5 [facility] Hemoglobin (Bld) [Mass/Vol] 13.7 g/dL 13.0-16.5 [facility] Monocytes/100 WBC (Bld) 9.5 % 0-10 [facility] Neutrophils (Bld) [#/Vol] 5.1 10*3/uL 2.0-7.7 [facility] Neutrophils/100 WBC (Bld) 61.8 % 47-70 [facility] WBC (Bld) [#/Vol] 8.2 10*3/uL 4.4-11.0 [facility] Determination of erythrocyte mean corpuscular volume (MCV)Ordered By: Renard Burgos on 06-26-2023 MCV (RBC) [Entitic vol] 92.2 fL 80-94 [facility] Erythrocyte distribution wid th ratioOrdered By: Renard Burgos on 06-26-2023 Erythrocyte distribution width (RBC) [Ratio] 12.7 % 11.6-14.6 [facility] Erythrocyte distribution wid th standard deviationOrdered By: Renard Burgos on 06-26-2023 Erythrocyte distribution width (RBC) [Entitic vol] 42.8 fL 35.1-43.9 [facility] Hematocrit Auto (Bld) [Volum e fraction]Ordered By: Renard Burgos on 06-26-2023 Hematocrit (Bld) [Volume fraction] 42.6 % 40-54 [facility] Immature granulocytes/100 WB C Auto (Bld)Ordered By: Renard Burgos on 06-26-2023 Immature granulocytes/100 WBC (Bld) 0.200 % 0.0-0.9 [facility] Comment on above: IG% - Immature Granu locytes (promyelocytes, myelocytes and metamyelocytes) > 1% indicates that a LEFT SHIFT is Present. Laboratory - Hematology and Cell countsOrdered By: Renard Burgos on 06-26-2023 MCH (RBC) [Entitic mass] 29.7 pg 27.0-32.0 [facility] MCHC (RBC) [Mass/Vol] 32.2 g/dL 32-36 [facility] Nucleated RBC/100 WBC (Bld) [Ratio] 0 % 0-5 [facility] Platelet mean volume (Bld) [Entitic vol] 11.0 fL 6.2-12.0 [facility] Platelets (Bld) [#/Vol] 182 10*3/uL 150-450 [facility] RBC Auto (Bld) [#/Vol]Ordere d By: Renard Burgos on 06-26-2023 RBC (Bld) [#/Vol] 4.62 10*6/uL 4.6-6.2 [facility] Absolute lymphocyte countOrd ered By: Renard Burgos on 06-19-2023 Lymphocytes Auto (Unsp spec) [#/Vol] 2.13 10*3/uL 0.83-4.51 [facility] Automated lymphocyte count a s percentage of total leukocytesOrdered By: Renard Burgos on 06-19-2023 Lymphocytes/100 WBC Auto (Unsp spec) 28.8 % 19-41 [facility] Basophil percentageOrdered B y: Renard Burgos on 06-19-2023 Basophils/100 WBC (Bld) 0.5 % 0-1 [facility] Eosinophils/100 WBC (Bld) 0.5 % 0-5 [facility] Hemoglobin (Bld) [Mass/Vol] 13.7 g/dL 13.0-16.5 [facility] Monocytes/100 WBC (Bld) 8.1 % 0-10 [facility] Neutrophils (Bld) [#/Vol] 4.6 10*3/uL 2.0-7.7 [facility] Neutrophils/100 WBC (Bld) 61.6 % 47-70 [facility] WBC (Bld) [#/Vol] 7.4 10*3/uL 4.4-11.0 [facility] Determination of erythrocyte mean corpuscular volume (MCV)Ordered By: Renard Burgos on 06-19-2023 MCV (RBC) [Entitic vol] 91.7 fL 80-94 [facility] Erythrocyte distribution wid th ratioOrdered By: Renard Burgos on 06-19-2023 Erythrocyte distribution width (RBC) [Ratio] 12.7 % 11.6-14.6 [facility] Erythrocyte distribution wid th standard deviationOrdered By: Renard Burgos on 06-19-2023 Erythrocyte distribution width (RBC) [Entitic vol] 42.8 fL 35.1-43.9 [facility] Hematocrit Auto (Bld) [Volum e fraction]Ordered By: Renard Burgos on 06-19-2023 Hematocrit (Bld) [Volume fraction] 43.1 % 40-54 [facility] Immature granulocytes/100 WB C Auto (Bld)Ordered By: Renard Burgos on 06-19-2023 Immature granulocytes/100 WBC (Bld) 0.500 % 0.0-0.9 [facility] Comment on above: IG% - Immature Granu locytes (promyelocytes, myelocytes and metamyelocytes) > 1% indicates that a LEFT SHIFT is Present. Laboratory - Hematology and Cell countsOrdered By: Renard Burgos on 06-19-2023 MCH (RBC) [Entitic mass] 29.1 pg 27.0-32.0 [facility] MCHC (RBC) [Mass/Vol] 31.8 g/dL 32-36 [facility] Nucleated RBC/100 WBC (Bld) [Ratio] 0 % 0-5 [facility] Platelet mean volume (Bld) [Entitic vol] 11.1 fL 6.2-12.0 [facility] Platelets (Bld) [#/Vol] 201 10*3/uL 150-450 [facility] RBC Auto (Bld) [#/Vol]Ordere d By: Renard Burgos on 06-19-2023 RBC (Bld) [#/Vol] 4.70 10*6/uL 4.6-6.2 [facility] Absolute lymphocyte countOrd ered By: Renard Burgos on 06-12-2023 Lymphocytes Auto (Unsp spec) [#/Vol] 2.17 10*3/uL 0.83-4.51 [facility] Automated lymphocyte count a s percentage of total leukocytesOrdered By: Renard Burgos on 06-12-2023 Lymphocytes/100 WBC Auto (Unsp spec) 26.7 % 19-41 [facility] Basophil percentageOrdered B y: Renard Burgos on 06-12-2023 Basophils/100 WBC (Bld) 0.4 % 0-1 [facility] Eosinophils/100 WBC (Bld) 0.5 % 0-5 [facility] Hemoglobin (Bld) [Mass/Vol] 13.5 g/dL 13.0-16.5 [facility] Monocytes/100 WBC (Bld) 9.0 % 0-10 [facility] Neutrophils (Bld) [#/Vol] 5.1 10*3/uL 2.0-7.7 [facility] Neutrophils/100 WBC (Bld) 63.0 % 47-70 [facility] WBC (Bld) [#/Vol] 8.1 10*3/uL 4.4-11.0 [facility] Determination of erythrocyte mean corpuscular volume (MCV)Ordered By: Renard Burgos on 06-12-2023 MCV (RBC) [Entitic vol] 91.3 fL 80-94 [facility] Erythrocyte distribution wid th ratioOrdered By: Renard Burgos on 06-12-2023 Erythrocyte distribution width (RBC) [Ratio] 12.6 % 11.6-14.6 [facility] Erythrocyte distribution wid th standard deviationOrdered By: Renard Burgos on 06-12-2023 Erythrocyte distribution width (RBC) [Entitic vol] 41.5 fL 35.1-43.9 [facility] Hematocrit Auto (Bld) [Volum e fraction]Ordered By: Renard Burgos on 06-12-2023 Hematocrit (Bld) [Volume fraction] 40.8 % 40-54 [facility] Immature granulocytes/100 WB C Auto (Bld)Ordered By: Renard Burgos on 06-12-2023 Immature granulocytes/100 WBC (Bld) 0.400 % 0.0-0.9 [facility] Comment on above: IG% - Immature Granu locytes (promyelocytes, myelocytes and metamyelocytes) > 1% indicates that a LEFT SHIFT is Present. Laboratory - Hematology and Cell countsOrdered By: Renard Burgos on 06-12-2023 MCH (RBC) [Entitic mass] 30.2 pg 27.0-32.0 [facility] MCHC (RBC) [Mass/Vol] 33.1 g/dL 32-36 [facility] Nucleated RBC/100 WBC (Bld) [Ratio] 0 % 0-5 [facility] Platelet mean volume (Bld) [Entitic vol] 11.0 fL 6.2-12.0 [facility] Platelets (Bld) [#/Vol] 195 10*3/uL 150-450 [facility] RBC Auto (Bld) [#/Vol]Ordere d By: Renard Burgos on 06-12-2023 RBC (Bld) [#/Vol] 4.47 10*6/uL 4.6-6.2 [facility] Absolute lymphocyte countOrd ered By: Renard Burgos on 06-05-2023 Lymphocytes Auto (Unsp spec) [#/Vol] 2.05 10*3/uL 0.83-4.51 [facility] Automated lymphocyte count a s percentage of total leukocytesOrdered By: Renard Burgos on 06-05-2023 Lymphocytes/100 WBC Auto (Unsp spec) 24.1 % 19-41 [facility] Basophil percentageOrdered B y: Renard Burgos on 06-05-2023 Basophils/100 WBC (Bld) 0.5 % 0-1 [facility] Eosinophils/100 WBC (Bld) 0.5 % 0-5 [facility] Hemoglobin (Bld) [Mass/Vol] 13.6 g/dL 13.0-16.5 [facility] Monocytes/100 WBC (Bld) 7.6 % 0-10 [facility] Neutrophils (Bld) [#/Vol] 5.7 10*3/uL 2.0-7.7 [facility] Neutrophils/100 WBC (Bld) 66.9 % 47-70 [facility] WBC (Bld) [#/Vol] 8.5 10*3/uL 4.4-11.0 [facility] Determination of erythrocyte mean corpuscular volume (MCV)Ordered By: Renard Burgos on 06-05-2023 MCV (RBC) [Entitic vol] 89.7 fL 80-94 [facility] Erythrocyte distribution wid th ratioOrdered By: Renard Burgos on 06-05-2023 Erythrocyte distribution width (RBC) [Ratio] 12.6 % 11.6-14.6 [facility] Erythrocyte distribution wid th standard deviationOrdered By: Renard Burgos on 06-05-2023 Erythrocyte distribution width (RBC) [Entitic vol] 41.1 fL 35.1-43.9 [facility] Hematocrit Auto (Bld) [Volum e fraction]Ordered By: Renard Burgos on 06-05-2023 Hematocrit (Bld) [Volume fraction] 41.0 % 40-54 [facility] Immature granulocytes/100 WB C Auto (Bld)Ordered By: Renard Burgos on 06-05-2023 Immature granulocytes/100 WBC (Bld) 0.400 % 0.0-0.9 [facility] Comment on above: IG% - Immature Granu locytes (promyelocytes, myelocytes and metamyelocytes) > 1% indicates that a LEFT SHIFT is Present. Laboratory - Hematology and Cell countsOrdered By: Renard Burgos on 06-05-2023 MCH (RBC) [Entitic mass] 29.8 pg 27.0-32.0 [facility] MCHC (RBC) [Mass/Vol] 33.2 g/dL 32-36 [facility] Nucleated RBC/100 WBC (Bld) [Ratio] 0 % 0-5 [facility] Platelets (Bld) [#/Vol] 193 10*3/uL 150-450 [facility] Platelet mean volume Adam-Ec ker (Bld) [Entitic vol]Ordered By: Renard Burgos on 06-05-2023 Platelet mean volume (Bld) [Entitic vol] 10.8 fL 6.2-12.0 [facility] RBC Auto (Bld) [#/Vol]Ordere d By: Renard Burgos on 06-05-2023 RBC (Bld) [#/Vol] 4.57 10*6/uL 4.6-6.2 [facility] Absolute lymphocyte countOrd ered By: Renard Burgos on 05-29-2023 Lymphocytes Auto (Unsp spec) [#/Vol] 2.32 10*3/uL 0.83-4.51 [facility] Automated lymphocyte count a s percentage of total leukocytesOrdered By: Renard Burgos on 05-29-2023 Lymphocytes/100 WBC Auto (Unsp spec) 26.7 % 19-41 [facility] Basophil percentageOrdered B y: Renard Burgos on 05-29-2023 Basophils/100 WBC (Bld) 0.6 % 0-1 [facility] Eosinophils/100 WBC (Bld) 0.5 % 0-5 [facility] Hemoglobin (Bld) [Mass/Vol] 14.2 g/dL 13.0-16.5 [facility] Monocytes/100 WBC (Bld) 6.8 % 0-10 [facility] Neutrophils (Bld) [#/Vol] 5.7 10*3/uL 2.0-7.7 [facility] Neutrophils/100 WBC (Bld) 65.2 % 47-70 [facility] WBC (Bld) [#/Vol] 8.7 10*3/uL 4.4-11.0 [facility] Determination of erythrocyte mean corpuscular volume (MCV)Ordered By: Renard Burgos on 05-29-2023 MCV (RBC) [Entitic vol] 94.0 fL 80-94 [facility] Erythrocyte distribution wid th ratioOrdered By: Renard Burgos on 05-29-2023 Erythrocyte distribution width (RBC) [Ratio] 12.6 % 11.6-14.6 [facility] Erythrocyte distribution wid th standard deviationOrdered By: Renard Burgos on 05-29-2023 Erythrocyte distribution width (RBC) [Entitic vol] 43.0 fL 35.1-43.9 [facility] Hematocrit Auto (Bld) [Volum e fraction]Ordered By: Renard Burgos on 05-29-2023 Hematocrit (Bld) [Volume fraction] 45.4 % 40-54 [facility] Immature granulocytes/100 WB C Auto (Bld)Ordered By: Renard Burgos on 05-29-2023 Immature granulocytes/100 WBC (Bld) 0.200 % 0.0-0.9 [facility] Comment on above: IG% - Immature Granu locytes (promyelocytes, myelocytes and metamyelocytes) > 1% indicates that a LEFT SHIFT is Present. Laboratory - Hematology and Cell countsOrdered By: Renard Burgos on 05-29-2023 MCH (RBC) [Entitic mass] 29.4 pg 27.0-32.0 [facility] MCHC (RBC) [Mass/Vol] 31.3 g/dL 32-36 [facility] Nucleated RBC/100 WBC (Bld) [Ratio] 0 % 0-5 [facility] Platelets (Bld) [#/Vol] 116 10*3/uL 150-450 [facility] Platelet mean volume Adam-Ec ker (Bld) [Entitic vol]Ordered By: Renard Burgos on 05-29-2023 Platelet mean volume (Bld) [Entitic vol] 11.1 fL 6.2-12.0 [facility] RBC Auto (Bld) [#/Vol]Ordere d By: Renard Burgos on 05-29-2023 RBC (Bld) [#/Vol] 4.83 10*6/uL 4.6-6.2 [facility] Absolute lymphocyte countOrd ered By: Renard Burgos on 05-22-2023 Lymphocytes Auto (Unsp spec) [#/Vol] 2.40 10*3/uL 0.83-4.51 [facility] Automated lymphocyte count a s percentage of total leukocytesOrdered By: Renard Burgos on 05-22-2023 Lymphocytes/100 WBC Auto (Unsp spec) 25.6 % 19-41 [facility] Basophil percentageOrdered B y: Renrad Burgos on 05-22-2023 Basophils/100 WBC (Bld) 0.4 % 0-1 [facility] Eosinophils/100 WBC (Bld) 0.4 % 0-5 [facility] Hemoglobin (Bld) [Mass/Vol] 13.7 g/dL 13.0-16.5 [facility] Monocytes/100 WBC (Bld) 9.1 % 0-10 [facility] Neutrophils (Bld) [#/Vol] 6.0 10*3/uL 2.0-7.7 [facility] Neutrophils/100 WBC (Bld) 63.9 % 47-70 [facility] WBC (Bld) [#/Vol] 9.4 10*3/uL 4.4-11.0 [facility] Determination of erythrocyte mean corpuscular volume (MCV)Ordered By: Renard Burgos on 05-22-2023 MCV (RBC) [Entitic vol] 91.8 fL 80-94 [facility] Erythrocyte distribution wid th ratioOrdered By: Renard Burgos on 05-22-2023 Erythrocyte distribution width (RBC) [Ratio] 12.8 % 11.6-14.6 [facility] Erythrocyte distribution wid th standard deviationOrdered By: Renard Burgos on 05-22-2023 Erythrocyte distribution width (RBC) [Entitic vol] 43.4 fL 35.1-43.9 [facility] Hematocrit Auto (Bld) [Volum e fraction]Ordered By: Renard Burgos on 05-22-2023 Hematocrit (Bld) [Volume fraction] 41.5 % 40-54 [facility] Immature granulocytes/100 WB C Auto (Bld)Ordered By: Renard Burgos on 05-22-2023 Immature granulocytes/100 WBC (Bld) 0.600 % 0.0-0.9 [facility] Comment on above: IG% - Immature Granu locytes (promyelocytes, myelocytes and metamyelocytes) > 1% indicates that a LEFT SHIFT is Present. Laboratory - Hematology and Cell countsOrdered By: Renard Burgos on 05-22-2023 MCH (RBC) [Entitic mass] 30.3 pg 27.0-32.0 [facility] MCHC (RBC) [Mass/Vol] 33.0 g/dL 32-36 [facility] Nucleated RBC/100 WBC (Bld) [Ratio] 0 % 0-5 [facility] Platelets (Bld) [#/Vol] 192 10*3/uL 150-450 [facility] Platelet mean volume Adam-Ec ker (Bld) [Entitic vol]Ordered By: Renard Burgos on 05-22-2023 Platelet mean volume (Bld) [Entitic vol] 11.3 fL 6.2-12.0 [facility] RBC Auto (Bld) [#/Vol]Ordere d By: Renard Burgos on 05-22-2023 RBC (Bld) [#/Vol] 4.52 10*6/uL 4.6-6.2 [facility] Absolute lymphocyte countOrd ered By: Renard Burgos on 05-15-2023 Lymphocytes Auto (Unsp spec) [#/Vol] 2.11 10*3/uL 0.83-4.51 [facility] Basophil percentageOrdered B y: Renard Burgos on 05-15-2023 Basophils/100 WBC (Bld) 0.6 % 0-1 [facility] Eosinophils/100 WBC (Bld) 0.8 % 0-5 [facility] Neutrophils (Bld) [#/Vol] 4.9 10*3/uL 2.0-7.7 [facility] Neutrophils/100 WBC (Bld) 62.4 % 47-70 [facility] WBC (Bld) [#/Vol] 7.9 10*3/uL 4.4-11.0 [facility] Blood erythrocytes count (nu mber/volume)Ordered By: Renard Burgos on 05-15-2023 RBC (Bld) [#/Vol] 4.61 10*6/uL 4.6-6.2 [facility] Blood hemoglobin measurement (mass/volume)Ordered By: Renard Burgos on 05-15-2023 Hemoglobin (Bld) [Mass/Vol] 13.9 g/dL 13.0-16.5 [facility] Blood lymphocytes/100 leukoc ytesOrdered By: Renard Burgos on 05-15-2023 Lymphocytes/100 WBC (Bld) 26.7 % 19-41 [facility] Blood monocytes/100 leukocyt esOrdered By: Rneard Burgos on 05-15-2023 Monocytes/100 WBC (Bld) 9.1 % 0-10 [facility] Blood platelet mean volumeOr dered By: Renard Burgos on 05-15-2023 Platelet mean volume (Bld) [Entitic vol] 10.7 fL 6.2-12.0 [facility] Determination of erythrocyte mean corpuscular volume (MCV)Ordered By: Renard Burgos on 05-15-2023 MCV (RBC) [Entitic vol] 90.5 fL 80-94 [facility] Hematocrit Auto (Bld) [Volum e fraction]Ordered By: Renard Burgos on 05-15-2023 Hematocrit (Bld) [Volume fraction] 41.7 % 40-54 [facility] - Hematology and Cell countsOrdered By: Renard Burgos on 05-15-2023 Erythrocyte distribution width (RBC) [Entitic vol] 42.4 fL 35.1-43.9 [facility] Erythrocyte distribution width (RBC) [Ratio] 12.9 % 11.6-14.6 [facility] Immature granulocytes/100 WBC (Bld) 0.400 % 0.0-0.9 [facility] Comment on above: IG% - Immature Granu locytes (promyelocytes, myelocytes and metamyelocytes) > 1% indicates that a LEFT SHIFT is Present. MCH (RBC) [Entitic mass] 30.2 pg 27.0-32.0 [facility] Nucleated RBC/100 WBC (Bld) [Ratio] 0 % 0-5 [facility] MCHC Auto (RBC) [Mass/Vol]Or dered By: Renard Burgos on 05-15-2023 MCHC (RBC) [Mass/Vol] 33.3 g/dL 32-36 [facility] Platelets bldOrdered By: Lyubov Burgos on 05-15-2023 Platelets (Bld) [#/Vol] 202 10*3/uL 150-450 [facility] Absolute lymphocyte countOrd ered By: Renard Burgos on 05-08-2023 Lymphocytes Auto (Unsp spec) [#/Vol] 2.06 10*3/uL 0.83-4.51 [facility] Basophil percentageOrdered B y: Renard Burgos on 05-08-2023 Basophils/100 WBC (Bld) 0.4 % 0-1 [facility] Eosinophils/100 WBC (Bld) 0.5 % 0-5 [facility] Neutrophils (Bld) [#/Vol] 5.0 10*3/uL 2.0-7.7 [facility] Neutrophils/100 WBC (Bld) 65.7 % 47-70 [facility] WBC (Bld) [#/Vol] 7.5 10*3/uL 4.4-11.0 [facility] Blood erythrocytes count (nu mber/volume)Ordered By: Renard Burgos on 05-08-2023 RBC (Bld) [#/Vol] 4.62 10*6/uL 4.6-6.2 [facility] Blood hemoglobin measurement (mass/volume)Ordered By: Renard Burgos on 05-08-2023 Hemoglobin (Bld) [Mass/Vol] 13.6 g/dL 13.0-16.5 [facility] Blood lymphocytes/100 leukoc ytesOrdered By: Renard Burgos on 05-08-2023 Lymphocytes/100 WBC (Bld) 27.4 % 19-41 [facility] Blood monocytes/100 leukocyt esOrdered By: Renard Burgos on 05-08-2023 Monocytes/100 WBC (Bld) 5.6 % 0-10 [facility] Blood platelet mean volumeOr dered By: Renard Burgos on 05-08-2023 Platelet mean volume (Bld) [Entitic vol] 11.0 fL 6.2-12.0 [facility] Determination of erythrocyte mean corpuscular volume (MCV)Ordered By: Renard Burgos on 05-08-2023 MCV (RBC) [Entitic vol] 91.8 fL 80-94 [facility] Hematocrit Auto (Bld) [Volum e fraction]Ordered By: Renard Burgos on 05-08-2023 Hematocrit (Bld) [Volume fraction] 42.4 % 40-54 [facility] - Hematology and Cell countsOrdered By: Renard Burgos on 05-08-2023 Erythrocyte distribution width (RBC) [Entitic vol] 43.1 fL 35.1-43.9 [facility] Erythrocyte distribution width (RBC) [Ratio] 13.0 % 11.6-14.6 [facility] Immature granulocytes/100 WBC (Bld) 0.400 % 0.0-0.9 [facility] Comment on above: IG% - Immature Granu locytes (promyelocytes, myelocytes and metamyelocytes) > 1% indicates that a LEFT SHIFT is Present. MCH (RBC) [Entitic mass] 29.4 pg 27.0-32.0 [facility] Nucleated RBC/100 WBC (Bld) [Ratio] 0 % 0-5 [facility] MCHC Auto (RBC) [Mass/Vol]Or dered By: Renard Burgos on 05-08-2023 MCHC (RBC) [Mass/Vol] 32.1 g/dL 32-36 [facility] Platelets bldOrdered By: Lyubov Burgos on 05-08-2023 Platelets (Bld) [#/Vol] 226 10*3/uL 150-450 [facility] Absolute lymphocyte countOrd ered By: Renard Burgos on 04-17-2023 Lymphocytes Auto (Unsp spec) [#/Vol] 0.92 10*3/uL 0.83-4.51 [facility] Basophil percentageOrdered B y: Renard Burgos on 04-17-2023 Basophils/100 WBC (Bld) 0.1 % 0-1 [facility] Eosinophils/100 WBC (Bld) 0.0 % 0-5 [facility] Neutrophils (Bld) [#/Vol] 6.0 10*3/uL 2.0-7.7 [facility] Neutrophils/100 WBC (Bld) 81.4 % 47-70 [facility] WBC (Bld) [#/Vol] 7.4 10*3/uL 4.4-11.0 [facility] Blood erythrocytes count (nu mber/volume)Ordered By: Renard Burgos on 04-17-2023 RBC (Bld) [#/Vol] 4.59 10*6/uL 4.6-6.2 [facility] Blood hemoglobin measurement (mass/volume)Ordered By: Renard Burgos on 04-17-2023 Hemoglobin (Bld) [Mass/Vol] 13.7 g/dL 13.0-16.5 [facility] Blood lymphocytes/100 leukoc ytesOrdered By: Renard Burgos on 04-17-2023 Lymphocytes/100 WBC (Bld) 12.5 % 19-41 [facility] Blood monocytes/100 leukocyt esOrdered By: Renard Burgos on 04-17-2023 Monocytes/100 WBC (Bld) 5.6 % 0-10 [facility] Blood platelet mean volumeOr dered By: Renard Burgos on 04-17-2023 Platelet mean volume (Bld) [Entitic vol] 10.9 fL 6.2-12.0 [facility] Determination of erythrocyte mean corpuscular volume (MCV)Ordered By: Renard Burgos on 04-17-2023 MCV (RBC) [Entitic vol] 90.8 fL 80-94 [facility] Hematocrit Auto (Bld) [Volum e fraction]Ordered By: Renard Burgos on 04-17-2023 Hematocrit (Bld) [Volume fraction] 41.7 % 40-54 [facility] - Hematology and Cell countsOrdered By: Renard Burgos on 04-17-2023 Erythrocyte distribution width (RBC) [Entitic vol] 42.3 fL 35.1-43.9 [facility] Erythrocyte distribution width (RBC) [Ratio] 12.8 % 11.6-14.6 [facility] Immature granulocytes/100 WBC (Bld) 0.400 % 0.0-0.9 [facility] Comment on above: IG% - Immature Granu locytes (promyelocytes, myelocytes and metamyelocytes) > 1% indicates that a LEFT SHIFT is Present. MCH (RBC) [Entitic mass] 29.8 pg 27.0-32.0 [facility] Nucleated RBC/100 WBC (Bld) [Ratio] 0 % 0-5 [facility] MCHC Auto (RBC) [Mass/Vol]Or dered By: Renard Burgos on 04-17-2023 MCHC (RBC) [Mass/Vol] 32.9 g/dL 32-36 [facility] Platelets bldOrdered By: Lyubov Brugos on 04-17-2023 Platelets (Bld) [#/Vol] 194 10*3/uL 150-450 [facility] Basophil percentageOrdered B y: Renard Burgos on 04-14-2023 Bilirubin [Mass/Vol] 0.30 mg/dL 0.20-1.00 [facility] Comment on above: For patients on eltr ombopag therapy, use of Dimension [place] TBIL is not recommended. Protein [Mass/Vol] 6.2 g/dL 6.4-8.2 [facility] Direct bilirubinOrdered By: Renard Burgos on 04-14-2023 Bilirubin.direct [Mass/Vol] 0.11 mg/dL 0.00-0.30 [facility] - Chemistry and C hemistry - challengeOrdered By: Renard Burgos on 04-14-2023 ALP [Catalytic activity/Vol] 139 U/L 45-117 [facility] ALT [Catalytic activity/Vol] 23 U/L 16-61 [facility] Globulin (S) [Mass/Vol] 3.2 g/dL 2.2-4.2 [facility] Serum or plasma albumin gordy urement (mass/volume)Ordered By: Renard Burgos on 04-14-2023 Albumin [Mass/Vol] 3.0 g/dL 3.2-5.0 [facility] Thin prep Papanicolaou smear with manual screeningOrdered By: Renard Burgos on 04-14-2023 Thin prep Papanicolaou smear with manual screening 14 U/L 15-37 [facility] Absolute lymphocyte countOrd ered By: Renard Burgos on 04-10-2023 Lymphocytes Auto (Unsp spec) [#/Vol] 2.54 10*3/uL 0.83-4.51 [facility] Basophil percentageOrdered B y: Renard Burgos on 04-10-2023 Basophils/100 WBC (Bld) 0.5 % 0-1 [facility] Eosinophils/100 WBC (Bld) 0.5 % 0-5 [facility] Neutrophils (Bld) [#/Vol] 5.1 10*3/uL 2.0-7.7 [facility] Neutrophils/100 WBC (Bld) 59.0 % 47-70 [facility] WBC (Bld) [#/Vol] 8.7 10*3/uL 4.4-11.0 [facility] Blood erythrocytes count (nu mber/volume)Ordered By: Renard Burgos on 04-10-2023 RBC (Bld) [#/Vol] 4.84 10*6/uL 4.6-6.2 [facility] Blood hemoglobin measurement (mass/volume)Ordered By: Renard Burgos on 04-10-2023 Hemoglobin (Bld) [Mass/Vol] 14.2 g/dL 13.0-16.5 [facility] Blood lymphocytes/100 leukoc ytesOrdered By: Renard Burgos on 04-10-2023 Lymphocytes/100 WBC (Bld) 29.4 % 19-41 [facility] Blood monocytes/100 leukocyt esOrdered By: Renard Burgos on 04-10-2023 Monocytes/100 WBC (Bld) 10.3 % 0-10 [facility] Blood platelet mean volumeOr dered By: Renard Burgos on 04-10-2023 Platelet mean volume (Bld) [Entitic vol] 11.1 fL 6.2-12.0 [facility] Determination of erythrocyte mean corpuscular volume (MCV)Ordered By: Renard Burgos on 04-10-2023 MCV (RBC) [Entitic vol] 91.5 fL 80-94 [facility] Hematocrit Auto (Bld) [Volum e fraction]Ordered By: Renard Burgos on 04-10-2023 Hematocrit (Bld) [Volume fraction] 44.3 % 40-54 [facility] - Hematology and Cell countsOrdered By: Renard Burgos on 04-10-2023 Erythrocyte distribution width (RBC) [Entitic vol] 41.9 fL 35.1-43.9 [facility] Erythrocyte distribution width (RBC) [Ratio] 12.6 % 11.6-14.6 [facility] Immature granulocytes/100 WBC (Bld) 0.300 % 0.0-0.9 [facility] Comment on above: IG% - Immature Granu locytes (promyelocytes, myelocytes and metamyelocytes) > 1% indicates that a LEFT SHIFT is Present. MCH (RBC) [Entitic mass] 29.3 pg 27.0-32.0 [facility] Nucleated RBC/100 WBC (Bld) [Ratio] 0 % 0-5 [facility] MCHC Auto (RBC) [Mass/Vol]Or dered By: Renard Burgos on 04-10-2023 MCHC (RBC) [Mass/Vol] 32.1 g/dL 32-36 [facility] Platelets bldOrdered By: Pet lizy Burgos on 04-10-2023 Platelets (Bld) [#/Vol] 216 10*3/uL 150-450 [facility] Absolute lymphocyte countOrd ered By: Renard Burgos on 04-03-2023 Lymphocytes Auto (Unsp spec) [#/Vol] 1.91 10*3/uL 0.83-4.51 [facility] Basophil percentageOrdered B y: Renard Burgos on 04-03-2023 Basophils/100 WBC (Bld) 0.5 % 0-1 [facility] Eosinophils/100 WBC (Bld) 0.5 % 0-5 [facility] Neutrophils (Bld) [#/Vol] 5.0 10*3/uL 2.0-7.7 [facility] Neutrophils/100 WBC (Bld) 66.5 % 47-70 [facility] WBC (Bld) [#/Vol] 7.6 10*3/uL 4.4-11.0 [facility] Blood erythrocytes count (nu mber/volume)Ordered By: Renard Burgos on 04-03-2023 RBC (Bld) [#/Vol] 4.62 10*6/uL 4.6-6.2 [facility] Blood hemoglobin measurement (mass/volume)Ordered By: Renard Burgos on 04-03-2023 Hemoglobin (Bld) [Mass/Vol] 13.7 g/dL 13.0-16.5 [facility] Blood lymphocytes/100 leukoc ytesOrdered By: Renard Burgos on 04-03-2023 Lymphocytes/100 WBC (Bld) 25.2 % 19-41 [facility] Blood monocytes/100 leukocyt esOrdered By: Renard Burgos on 04-03-2023 Monocytes/100 WBC (Bld) 6.9 % 0-10 [facility] Blood platelet mean volumeOr dered By: Renard Burgos on 04-03-2023 Platelet mean volume (Bld) [Entitic vol] 10.8 fL 6.2-12.0 [facility] Determination of erythrocyte mean corpuscular volume (MCV)Ordered By: Renard Burgos on 04-03-2023 MCV (RBC) [Entitic vol] 91.6 fL 80-94 [facility] Hematocrit Auto (Bld) [Volum e fraction]Ordered By: Renard Burgos on 04-03-2023 Hematocrit (Bld) [Volume fraction] 42.3 % 40-54 [facility] - Hematology and Cell countsOrdered By: Renard Burgos on 04-03-2023 Erythrocyte distribution width (RBC) [Entitic vol] 42.6 fL 35.1-43.9 [facility] Erythrocyte distribution width (RBC) [Ratio] 12.8 % 11.6-14.6 [facility] Immature granulocytes/100 WBC (Bld) 0.400 % 0.0-0.9 [facility] Comment on above: IG% - Immature Granu locytes (promyelocytes, myelocytes and metamyelocytes) > 1% indicates that a LEFT SHIFT is Present. MCH (RBC) [Entitic mass] 29.7 pg 27.0-32.0 [facility] Nucleated RBC/100 WBC (Bld) [Ratio] 0 % 0-5 [facility] MCHC Auto (RBC) [Mass/Vol]Or dered By: Renard Burgos on 04-03-2023 MCHC (RBC) [Mass/Vol] 32.4 g/dL 32-36 [facility] Platelets bldOrdered By: Lyubov Burgos on 04-03-2023 Platelets (Bld) [#/Vol] 216 10*3/uL 150-450 [facility] Absolute lymphocyte countOrd ered By: Renard Burgos on 03-27-2023 Lymphocytes Auto (Unsp spec) [#/Vol] 2.06 10*3/uL 0.83-4.51 [facility] Basophil percentageOrdered B y: Renard Burgos on 03-27-2023 Basophils/100 WBC (Bld) 0.4 % 0-1 [facility] Eosinophils/100 WBC (Bld) 0.2 % 0-5 [facility] Neutrophils (Bld) [#/Vol] 6.3 10*3/uL 2.0-7.7 [facility] Neutrophils/100 WBC (Bld) 68.8 % 47-70 [facility] WBC (Bld) [#/Vol] 9.1 10*3/uL 4.4-11.0 [facility] Blood erythrocytes count (nu mber/volume)Ordered By: Renard Burgos on 11-27-2023 RBC (Bld) [#/Vol] 4.51 10*6/uL 4.6-6.2 [facility] Blood hemoglobin measurement (mass/volume)Ordered By: Renard Burgos on 03-27-2023 Hemoglobin (Bld) [Mass/Vol] 13.2 g/dL 13.0-16.5 [facility] Blood lymphocytes/100 leukoc ytesOrdered By: Renard Burgos on 03-27-2023 Lymphocytes/100 WBC (Bld) 22.6 % 19-41 [facility] Blood monocytes/100 leukocyt esOrdered By: Renard Burgos on 03-27-2023 Monocytes/100 WBC (Bld) 7.3 % 0-10 [facility] Blood platelet mean volumeOr dered By: Rneard Burgos on 03-27-2023 Platelet mean volume (Bld) [Entitic vol] 10.8 fL 6.2-12.0 [facility] Determination of erythrocyte mean corpuscular volume (MCV)Ordered By: Renard Burgos on 03-27-2023 MCV (RBC) [Entitic vol] 91.6 fL 80-94 [facility] Hematocrit Auto (Bld) [Volum e fraction]Ordered By: Renard Burgos on 03-27-2023 Hematocrit (Bld) [Volume fraction] 41.3 % 40-54 [facility] - Hematology and Cell countsOrdered By: Renard Burgos on 03-27-2023 Erythrocyte distribution width (RBC) [Entitic vol] 42.9 fL 35.1-43.9 [facility] Erythrocyte distribution width (RBC) [Ratio] 12.9 % 11.6-14.6 [facility] Immature granulocytes/100 WBC (Bld) 0.700 % 0.0-0.9 [facility] Comment on above: IG% - Immature Granu locytes (promyelocytes, myelocytes and metamyelocytes) > 1% indicates that a LEFT SHIFT is Present. MCH (RBC) [Entitic mass] 29.3 pg 27.0-32.0 [facility] Nucleated RBC/100 WBC (Bld) [Ratio] 0 % 0-5 [facility] MCHC Auto (RBC) [Mass/Vol]Or dered By: Renard Burgos on 03-27-2023 MCHC (RBC) [Mass/Vol] 32.0 g/dL 32-36 [facility] Platelets bldOrdered By: Lyubov Burgos on 03-27-2023 Platelets (Bld) [#/Vol] 205 10*3/uL 150-450 [facility] Absolute lymphocyte countOrd ered By: Renard Burgos on 03-20-2023 Lymphocytes Auto (Unsp spec) [#/Vol] 1.89 10*3/uL 0.83-4.51 [facility] Basophil percentageOrdered B y: Renard Burgos on 03-20-2023 Basophils/100 WBC (Bld) 0.5 % 0-1 [facility] Chloride [Moles/Vol] 107 mmol/L 98-107 [facility] Eosinophils/100 WBC (Bld) 0.4 % 0-5 [facility] Glucose [Mass/Vol] 124 mg/dL 74-106 [facility] Comment on above: Fasting Glucose resu lt from 100 to 125 mg/dL suggests IMPAIRED HOMEOSTASIS per A.D.A. criteria. Neutrophils (Bld) [#/Vol] 4.8 10*3/uL 2.0-7.7 [facility] Neutrophils/100 WBC (Bld) 64.9 % 47-70 [facility] Potassium [Moles/Vol] 3.6 mmol/L 3.5-5.1 [facility] Sodium [Moles/Vol] 142 mmol/L 136-145 [facility] WBC (Bld) [#/Vol] 7.4 10*3/uL 4.4-11.0 [facility] Blood erythrocytes count (nu mber/volume)Ordered By: Renard Burgos on 03-20-2023 RBC (Bld) [#/Vol] 4.63 10*6/uL 4.6-6.2 [facility] Blood hemoglobin measurement (mass/volume)Ordered By: Renard Burgos on 03-20-2023 Hemoglobin (Bld) [Mass/Vol] 13.7 g/dL 13.0-16.5 [facility] Blood lymphocytes/100 leukoc ytesOrdered By: Renard Burgos on 03-20-2023 Lymphocytes/100 WBC (Bld) 25.7 % 19-41 [facility] Blood monocytes/100 leukocyt esOrdered By: Renard Burgos on 03-20-2023 Monocytes/100 WBC (Bld) 8.2 % 0-10 [facility] Blood platelet mean volumeOr dered By: Renard Burgos on 03-20-2023 Platelet mean volume (Bld) [Entitic vol] 10.7 fL 6.2-12.0 [facility] Determination of erythrocyte mean corpuscular volume (MCV)Ordered By: Renard Burgos on 03-20-2023 MCV (RBC) [Entitic vol] 90.9 fL 80-94 [facility] Hematocrit Auto (Bld) [Volum e fraction]Ordered By: Renard Burgos on 03-20-2023 Hematocrit (Bld) [Volume fraction] 42.1 % 40-54 [facility] - Chemistry and C hemistry - challengeOrdered By: Renard Burgos on 03-20-2023 CO2 [Moles/Vol] 29.0 mmol/L 21.0-32.0 [facility] Urea nitrogen/Creatinine [Mass ratio] 30.7 mg/mg 10-20 [facility] - Hematology and Cell countsOrdered By: Renard Burgos on 03-20-2023 Erythrocyte distribution width (RBC) [Entitic vol] 43.0 fL 35.1-43.9 [facility] Erythrocyte distribution width (RBC) [Ratio] 12.9 % 11.6-14.6 [facility] Immature granulocytes/100 WBC (Bld) 0.300 % 0.0-0.9 [facility] Comment on above: IG% - Immature Granu locytes (promyelocytes, myelocytes and metamyelocytes) > 1% indicates that a LEFT SHIFT is Present. MCH (RBC) [Entitic mass] 29.6 pg 27.0-32.0 [facility] Nucleated RBC/100 WBC (Bld) [Ratio] 0 % 0-5 [facility] MCHC Auto (RBC) [Mass/Vol]Or dered By: Renard Burgos on 03-20-2023 MCHC (RBC) [Mass/Vol] 32.5 g/dL 32-36 [facility] No Panel InformationOrdered By: Renard Burgos on 03-20-2023 Estimated GFR (MDRD) Amer 178 mL/min >60 [facility] Comment on above: GFR Calc Estimated GFR (MDRD) Non-Af Amer 147 mL/min >60 [facility] Comment on above: Non- GFR Calc Platelets bldOrdered By: Lyubov Burgos on 03-20-2023 Platelets (Bld) [#/Vol] 208 10*3/uL 150-450 [facility] Serum or plasma calcium gordy urement (mass/volume)Ordered By: Renard Burgos on 03-20-2023 Calcium [Mass/Vol] 8.1 mg/dL 8.5-10.1 [facility] Serum or plasma creatinine m easurement (mass/volume)Ordered By: Renard Burgos on 03-20-2023 Creatinine [Mass/Vol] 0.59 mg/dL 0.70-1.30 [facility] Comment on above: The validity of the calculated GFR & GFRAA in patients over 70 years has not been determined. Clinical correlation is essential. Serum or plasma urea nitroge n measurement (mass/volume)Ordered By: Renard Burgos on 03-20-2023 Urea nitrogen [Mass/Vol] 18 mg/dL 7-18 [facility] Thin prep Papanicolaou smear with manual screeningOrdered By: Renard Burgos on 03-20-2023 Thin prep Papanicolaou smear with manual screening 6 5-15 [facility] Erythrocyte sedimentation ra teOrdered By: Renard Burgos on 03-16-2023 ESR (Bld) [Velocity] 3 mm/h 0-20 [facility] Absolute lymphocyte countOrd ered By: Renard Burgos on 03-13-2023 Lymphocytes Auto (Unsp spec) [#/Vol] 2.36 10*3/uL 0.83-4.51 [facility] Basophil percentageOrdered B y: Renard Burgos on 03-13-2023 Basophils/100 WBC (Bld) 0.5 % 0-1 [facility] Eosinophils/100 WBC (Bld) 0.5 % 0-5 [facility] Neutrophils (Bld) [#/Vol] 5.2 10*3/uL 2.0-7.7 [facility] Neutrophils/100 WBC (Bld) 61.3 % 47-70 [facility] WBC (Bld) [#/Vol] 8.5 10*3/uL 4.4-11.0 [facility] Blood erythrocytes count (nu mber/volume)Ordered By: Renard Burgos on 03-13-2023 RBC (Bld) [#/Vol] 4.55 10*6/uL 4.6-6.2 [facility] Blood hemoglobin measurement (mass/volume)Ordered By: Renard Burgos on 03-13-2023 Hemoglobin (Bld) [Mass/Vol] 13.4 g/dL 13.0-16.5 [facility] Blood lymphocytes/100 leukoc ytesOrdered By: Renard Burgos on 03-13-2023 Lymphocytes/100 WBC (Bld) 27.7 % 19-41 [facility] Blood monocytes/100 leukocyt esOrdered By: Renard Burgos on 03-13-2023 Monocytes/100 WBC (Bld) 9.5 % 0-10 [facility] Blood platelet mean volumeOr dered By: Renard Burgos on 03-13-2023 Platelet mean volume (Bld) [Entitic vol] 10.6 fL 6.2-12.0 [facility] Determination of erythrocyte mean corpuscular volume (MCV)Ordered By: Renard Burgos on 03-13-2023 MCV (RBC) [Entitic vol] 93.4 fL 80-94 [facility] Hematocrit Auto (Bld) [Volum e fraction]Ordered By: Renard Burgos on 03-13-2023 Hematocrit (Bld) [Volume fraction] 42.5 % 40-54 [facility] - Hematology and Cell countsOrdered By: Renard Burgos on 03-13-2023 Erythrocyte distribution width (RBC) [Entitic vol] 44.1 fL 35.1-43.9 [facility] Erythrocyte distribution width (RBC) [Ratio] 13.0 % 11.6-14.6 [facility] Immature granulocytes/100 WBC (Bld) 0.500 % 0.0-0.9 [facility] Comment on above: IG% - Immature Granu locytes (promyelocytes, myelocytes and metamyelocytes) > 1% indicates that a LEFT SHIFT is Present. MCH (RBC) [Entitic mass] 29.5 pg 27.0-32.0 [facility] Nucleated RBC/100 WBC (Bld) [Ratio] 0 % 0-5 [facility] MCHC Auto (RBC) [Mass/Vol]Or dered By: Renard Burgos on 03-13-2023 MCHC (RBC) [Mass/Vol] 31.5 g/dL 32-36 [facility] Platelets bldOrdered By: Lyubov Burgos on 03-13-2023 Platelets (Bld) [#/Vol] 200 10*3/uL 150-450 [facility] Absolute lymphocyte countOrd ered By: Renard Burgos on 03-06-2023 Lymphocytes Auto (Unsp spec) [#/Vol] 1.80 10*3/uL 0.83-4.51 [facility] Basophil percentageOrdered B y: Renard Burgos on 03-06-2023 Basophils/100 WBC (Bld) 0.5 % 0-1 [facility] Bilirubin [Mass/Vol] 0.40 mg/dL 0.20-1.00 [facility] Comment on above: For patients on eltr ombopag therapy, use of Dimension [place] TBIL is not recommended. Chloride [Moles/Vol] 107 mmol/L 98-107 [facility] Cholesterol [Mass/Vol] 118 mg/dL <200 [facility] Comment on above: <200 mg/dL Desirable 200-240 mg/dL Borderline >240 mg/dL High Risk Eosinophils/100 WBC (Bld) 0.5 % 0-5 [facility] Glucose [Mass/Vol] 107 mg/dL 74-106 [facility] Comment on above: Fasting Glucose resu lt from 100 to 125 mg/dL suggests IMPAIRED HOMEOSTASIS per A.D.A. criteria. Neutrophils (Bld) [#/Vol] 5.5 10*3/uL 2.0-7.7 [facility] Neutrophils/100 WBC (Bld) 68.0 % 47-70 [facility] Potassium [Moles/Vol] 3.8 mmol/L 3.5-5.1 [facility] Protein [Mass/Vol] 6.3 g/dL 6.4-8.2 [facility] Sodium [Moles/Vol] 141 mmol/L 136-145 [facility] Triglyceride [Mass/Vol] 185 mg/dL <199 [facility] Comment on above: The drugs N-Acetylcy steine and Metamizole may falsely depress this assay.Serum Triglycerides Reference Interval Normal <150 mg/dL Borderline high 150 - 199 mg/dL High 200 - 499 mg/dL Very High > or = 500 mg/dL WBC (Bld) [#/Vol] 8.1 10*3/uL 4.4-11.0 [facility] Blood erythrocytes count (nu mber/volume)Ordered By: Renard Burgos on 03-06-2023 RBC (Bld) [#/Vol] 4.69 10*6/uL 4.6-6.2 [facility] Blood hemoglobin measurement (mass/volume)Ordered By: Renard Burgos on 03-06-2023 Hemoglobin (Bld) [Mass/Vol] 14.0 g/dL 13.0-16.5 [facility] Blood lymphocytes/100 leukoc ytesOrdered By: Renard Burgos on 03-06-2023 Lymphocytes/100 WBC (Bld) 22.3 % 19-41 [facility] Blood monocytes/100 leukocyt esOrdered By: Renard Burgos on 03-06-2023 Monocytes/100 WBC (Bld) 8.2 % 0-10 [facility] Blood platelet mean volumeOr dered By: Renard Burgos on 03-06-2023 Platelet mean volume (Bld) [Entitic vol] 10.9 fL 6.2-12.0 [facility] Determination of erythrocyte mean corpuscular volume (MCV)Ordered By: Renard Burgos on 03-06-2023 MCV (RBC) [Entitic vol] 91.9 fL 80-94 [facility] Hematocrit Auto (Bld) [Volum e fraction]Ordered By: Renard Burgos on 03-06-2023 Hematocrit (Bld) [Volume fraction] 43.1 % 40-54 [facility] Laboratory - Chemistry and C hemistry - challengeOrdered By: Renard Burgos on 03-06-2023 ALP [Catalytic activity/Vol] 120 U/L 45-117 [facility] ALT [Catalytic activity/Vol] 20 U/L 16-61 [facility] CO2 [Moles/Vol] 30.0 mmol/L 21.0-32.0 [facility] Globulin (S) [Mass/Vol] 3.3 g/dL 2.2-4.2 [facility] Urea nitrogen/Creatinine [Mass ratio] 27.1 mg/mg 10-20 [facility] - Hematology and Cell countsOrdered By: Renard Burgos on 03-06-2023 Erythrocyte distribution width (RBC) [Entitic vol] 42.5 fL 35.1-43.9 [facility] Erythrocyte distribution width (RBC) [Ratio] 12.9 % 11.6-14.6 [facility] Immature granulocytes/100 WBC (Bld) 0.500 % 0.0-0.9 [facility] Comment on above: IG% - Immature Granu locytes (promyelocytes, myelocytes and metamyelocytes) > 1% indicates that a LEFT SHIFT is Present. MCH (RBC) [Entitic mass] 29.9 pg 27.0-32.0 [facility] Nucleated RBC/100 WBC (Bld) [Ratio] 0 % 0-5 [facility] MCHC Auto (RBC) [Mass/Vol]Or dered By: Renard Burgos on 03-06-2023 MCHC (RBC) [Mass/Vol] 32.5 g/dL 32-36 [facility] No Panel InformationOrdered By: Renard Burgos on 03-06-2023 Estimated GFR (MDRD) Amer 165 mL/min >60 [facility] Comment on above: GFR Calc Estimated GFR (MDRD) Non-Af Amer 136 mL/min >60 [facility] Comment on above: Non- GFR Calc Platelets bldOrdered By: Lyubov Burgos on 03-06-2023 Platelets (Bld) [#/Vol] 232 10*3/uL 150-450 [facility] Serum or plasma albumin gordy urement (mass/volume)Ordered By: Renard Burgos on 03-06-2023 Albumin [Mass/Vol] 3.0 g/dL 3.2-5.0 [facility] Serum or plasma albumin/glob ulin mass ratioOrdered By: Renard Brugos on 03-06-2023 Albumin/Globulin [Mass ratio] 0.9 {ratio} 0.9-2.4 [facility] Serum or plasma calcium gordy urement (mass/volume)Ordered By: Renard Burgos on 03-06-2023 Calcium [Mass/Vol] 8.2 mg/dL 8.5-10.1 [facility] Serum or plasma cholesterol in HDL measurement (mass/volume)Ordered By: Renard Burgos on 03-06-2023 Cholesterol in HDL [Mass/Vol] 25 mg/dL >40 [facility] Comment on above: The drugs N-Acetylcy steine and Metamizole may falsely depress this assay. Reference Range HDL <40 mg/dL Low HDL Cholesterol HDL >or= 60 mg/dL High HDL Cholesterol Serum or plasma cholesterol in VLDL measurement (mass/volume)Ordered By: Renard Burgos on 03-06-2023 Cholesterol in VLDL [Mass/Vol] 37 mg/dL 5-40 [facility] Serum or plasma creatinine m easurement (mass/volume)Ordered By: Renard Burgos on 03-06-2023 Creatinine [Mass/Vol] 0.63 mg/dL 0.70-1.30 [facility] Comment on above: The validity of the calculated GFR & GFRAA in patients over 70 years has not been determined. Clinical correlation is essential. Serum or plasma low density lipoprotein (LDL) cholesterol measurement (mass/volume)Ordered By: Renard Burgos on 03-06-2023 Cholesterol in LDL [Mass/Vol] 56 mg/dL 0-130 [facility] Serum or plasma urea nitroge n measurement (mass/volume)Ordered By: Renard Burgos on 03-06-2023 Urea nitrogen [Mass/Vol] 17 mg/dL 7-18 [facility] Thin prep Papanicolaou smear with manual screeningOrdered By: Renard Burgos on 03-06-2023 Thin prep Papanicolaou smear with manual screening 10 U/L 15-37 [facility] Thin prep Papanicolaou smear with manual screening 4 5-15 [facility] Absolute lymphocyte countOrd ered By: Renard Burgos on 02-27-2023 Lymphocytes Auto (Unsp spec) [#/Vol] 2.13 10*3/uL 0.83-4.51 [facility] Basophil percentageOrdered B y: Renard Burgos on 02-27-2023 Basophils/100 WBC (Bld) 0.6 % 0-1 [facility] Eosinophils/100 WBC (Bld) 0.6 % 0-5 [facility] Neutrophils (Bld) [#/Vol] 5.1 10*3/uL 2.0-7.7 [facility] Neutrophils/100 WBC (Bld) 63.3 % 47-70 [facility] WBC (Bld) [#/Vol] 8.1 10*3/uL 4.4-11.0 [facility] Blood erythrocytes count (nu mber/volume)Ordered By: Renard Burgos on 02-27-2023 RBC (Bld) [#/Vol] 4.54 10*6/uL 4.6-6.2 [facility] Blood hemoglobin measurement (mass/volume)Ordered By: Renard Burgos on 02-27-2023 Hemoglobin (Bld) [Mass/Vol] 13.7 g/dL 13.0-16.5 [facility] Blood lymphocytes/100 leukoc ytesOrdered By: Renard Burgos on 02-27-2023 Lymphocytes/100 WBC (Bld) 26.4 % 19-41 [facility] Blood monocytes/100 leukocyt esOrdered By: Renard Burgos on 02-27-2023 Monocytes/100 WBC (Bld) 8.7 % 0-10 [facility] Blood platelet mean volumeOr dered By: Renard Burgos on 02-27-2023 Platelet mean volume (Bld) [Entitic vol] 10.8 fL 6.2-12.0 [facility] Determination of erythrocyte mean corpuscular volume (MCV)Ordered By: Renard Burgos on 02-27-2023 MCV (RBC) [Entitic vol] 89.9 fL 80-94 [facility] Hematocrit Auto (Bld) [Volum e fraction]Ordered By: Renard Burgos on 02-27-2023 Hematocrit (Bld) [Volume fraction] 40.8 % 40-54 [facility] Laboratory - Hematology and Cell countsOrdered By: Renard Burgos on 02-27-2023 Erythrocyte distribution width (RBC) [Entitic vol] 41.0 fL 35.1-43.9 [facility] Erythrocyte distribution width (RBC) [Ratio] 12.5 % 11.6-14.6 [facility] Immature granulocytes/100 WBC (Bld) 0.400 % 0.0-0.9 [facility] Comment on above: IG% - Immature Granu locytes (promyelocytes, myelocytes and metamyelocytes) > 1% indicates that a LEFT SHIFT is Present. MCH (RBC) [Entitic mass] 30.2 pg 27.0-32.0 [facility] Nucleated RBC/100 WBC (Bld) [Ratio] 0 % 0-5 [facility] MCHC Auto (RBC) [Mass/Vol]Or dered By: Renard Burgos on 02-27-2023 MCHC (RBC) [Mass/Vol] 33.6 g/dL 32-36 [facility] Platelets bldOrdered By: Lyubov Burgos on 02-27-2023 Platelets (Bld) [#/Vol] 182 10*3/uL 150-450 [facility] Absolute lymphocyte countOrd ered By: Renard Burgos on 02-20-2023 Lymphocytes Auto (Unsp spec) [#/Vol] 2.23 10*3/uL 0.83-4.51 [facility] Basophil percentageOrdered B y: Renard Burgos on 02-20-2023 Basophils/100 WBC (Bld) 0.3 % 0-1 [facility] Eosinophils/100 WBC (Bld) 0.7 % 0-5 [facility] Neutrophils (Bld) [#/Vol] 5.9 10*3/uL 2.0-7.7 [facility] Neutrophils/100 WBC (Bld) 65.7 % 47-70 [facility] WBC (Bld) [#/Vol] 9.0 10*3/uL 4.4-11.0 [facility] Blood erythrocytes count (nu mber/volume)Ordered By: Renard Burgos on 02-20-2023 RBC (Bld) [#/Vol] 4.46 10*6/uL 4.6-6.2 [facility] Blood hemoglobin measurement (mass/volume)Ordered By: Renard Burgos on 02-20-2023 Hemoglobin (Bld) [Mass/Vol] 13.3 g/dL 13.0-16.5 [facility] Blood lymphocytes/100 leukoc ytesOrdered By: Renard Burgos on 02-20-2023 Lymphocytes/100 WBC (Bld) 24.7 % 19-41 [facility] Blood monocytes/100 leukocyt esOrdered By: Renard Burgos on 02-20-2023 Monocytes/100 WBC (Bld) 8.0 % 0-10 [facility] Blood platelet mean volumeOr dered By: Renard Burgos on 02-20-2023 Platelet mean volume (Bld) [Entitic vol] 10.7 fL 6.2-12.0 [facility] Determination of erythrocyte mean corpuscular volume (MCV)Ordered By: Renard Burgos on 02-20-2023 MCV (RBC) [Entitic vol] 90.6 fL 80-94 [facility] Hematocrit Auto (Bld) [Volum e fraction]Ordered By: Renard Burgos on 02-20-2023 Hematocrit (Bld) [Volume fraction] 40.4 % 40-54 [facility] - Hematology and Cell countsOrdered By: Renard Burgos on 02-20-2023 Erythrocyte distribution width (RBC) [Entitic vol] 41.9 fL 35.1-43.9 [facility] Erythrocyte distribution width (RBC) [Ratio] 12.8 % 11.6-14.6 [facility] Immature granulocytes/100 WBC (Bld) 0.600 % 0.0-0.9 [facility] Comment on above: IG% - Immature Granu locytes (promyelocytes, myelocytes and metamyelocytes) > 1% indicates that a LEFT SHIFT is Present. MCH (RBC) [Entitic mass] 29.8 pg 27.0-32.0 [facility] Nucleated RBC/100 WBC (Bld) [Ratio] 0 % 0-5 [facility] MCHC Auto (RBC) [Mass/Vol]Or dered By: Renard Burgos on 02-20-2023 MCHC (RBC) [Mass/Vol] 32.9 g/dL 32-36 [facility] Platelets bldOrdered By: Pet lizy Burgos on 02-20-2023 Platelets (Bld) [#/Vol] 220 10*3/uL 150-450 [facility] Absolute lymphocyte countOrd ered By: Renard Burgos on 02-13-2023 Lymphocytes Auto (Unsp spec) [#/Vol] 2.01 10*3/uL 0.83-4.51 [facility] Basophil percentageOrdered B y: Renard Burgos on 02-13-2023 Basophils/100 WBC (Bld) 0.7 % 0-1 [facility] Eosinophils/100 WBC (Bld) 0.5 % 0-5 [facility] Neutrophils (Bld) [#/Vol] 4.7 10*3/uL 2.0-7.7 [facility] Neutrophils/100 WBC (Bld) 63.3 % 47-70 [facility] WBC (Bld) [#/Vol] 7.4 10*3/uL 4.4-11.0 [facility] Blood erythrocytes count (nu mber/volume)Ordered By: Renard Burgos on 02-13-2023 RBC (Bld) [#/Vol] 4.46 10*6/uL 4.6-6.2 [facility] Blood hemoglobin measurement (mass/volume)Ordered By: Renard Burgos on 02-13-2023 Hemoglobin (Bld) [Mass/Vol] 13.6 g/dL 13.0-16.5 [facility] Blood lymphocytes/100 leukoc ytesOrdered By: Renard Burgos on 02-13-2023 Lymphocytes/100 WBC (Bld) 27.0 % 19-41 [facility] Blood monocytes/100 leukocyt esOrdered By: Renard Burgos on 02-13-2023 Monocytes/100 WBC (Bld) 8.1 % 0-10 [facility] Blood platelet mean volumeOr dered By: Renard Burgos on 02-13-2023 Platelet mean volume (Bld) [Entitic vol] 10.7 fL 6.2-12.0 [facility] Determination of erythrocyte mean corpuscular volume (MCV)Ordered By: Renard Burgos on 02-13-2023 MCV (RBC) [Entitic vol] 92.6 fL 80-94 [facility] Hematocrit Auto (Bld) [Volum e fraction]Ordered By: Renard Burgos on 02-13-2023 Hematocrit (Bld) [Volume fraction] 41.3 % 40-54 [facility] - Hematology and Cell countsOrdered By: Renard Burgos on 02-13-2023 Erythrocyte distribution width (RBC) [Entitic vol] 42.7 fL 35.1-43.9 [facility] Erythrocyte distribution width (RBC) [Ratio] 12.6 % 11.6-14.6 [facility] Immature granulocytes/100 WBC (Bld) 0.400 % 0.0-0.9 [facility] Comment on above: IG% - Immature Granu locytes (promyelocytes, myelocytes and metamyelocytes) > 1% indicates that a LEFT SHIFT is Present. MCH (RBC) [Entitic mass] 30.5 pg 27.0-32.0 [facility] Nucleated RBC/100 WBC (Bld) [Ratio] 0 % 0-5 [facility] MCHC Auto (RBC) [Mass/Vol]Or dered By: Renard Burgos on 02-13-2023 MCHC (RBC) [Mass/Vol] 32.9 g/dL 32-36 [facility] Platelets bldOrdered By: Lyubov Burgos on 02-13-2023 Platelets (Bld) [#/Vol] 187 10*3/uL 150-450 [facility] Absolute lymphocyte countOrd ered By: Renard Burgos on 02-06-2023 Lymphocytes Auto (Unsp spec) [#/Vol] 2.28 10*3/uL 0.83-4.51 [facility] Basophil percentageOrdered B y: Renard Burgos on 02-06-2023 Basophils/100 WBC (Bld) 0.5 % 0-1 [facility] Eosinophils/100 WBC (Bld) 0.7 % 0-5 [facility] Neutrophils (Bld) [#/Vol] 5.5 10*3/uL 2.0-7.7 [facility] Neutrophils/100 WBC (Bld) 63.7 % 47-70 [facility] WBC (Bld) [#/Vol] 8.6 10*3/uL 4.4-11.0 [facility] Blood erythrocytes count (nu mber/volume)Ordered By: Renard Burgos on 02-06-2023 RBC (Bld) [#/Vol] 4.71 10*6/uL 4.6-6.2 [facility] Blood hemoglobin measurement (mass/volume)Ordered By: Renard Burgos on 02-06-2023 Hemoglobin (Bld) [Mass/Vol] 14.1 g/dL 13.0-16.5 [facility] Blood lymphocytes/100 leukoc ytesOrdered By: Renard Burgos on 02-06-2023 Lymphocytes/100 WBC (Bld) 26.4 % 19-41 [facility] Blood monocytes/100 leukocyt esOrdered By: Renard Burgos on 02-06-2023 Monocytes/100 WBC (Bld) 8.2 % 0-10 [facility] Blood platelet mean volumeOr dered By: Renard Burgos on 02-06-2023 Platelet mean volume (Bld) [Entitic vol] 11.0 fL 6.2-12.0 [facility] Determination of erythrocyte mean corpuscular volume (MCV)Ordered By: Renard Burgos on 02-06-2023 MCV (RBC) [Entitic vol] 94.5 fL 80-94 [facility] Hematocrit Auto (Bld) [Volum e fraction]Ordered By: Renard Burgos on 02-06-2023 Hematocrit (Bld) [Volume fraction] 44.5 % 40-54 [facility] - Hematology and Cell countsOrdered By: Renard Burgos on 02-06-2023 Erythrocyte distribution width (RBC) [Entitic vol] 43.5 fL 35.1-43.9 [facility] Erythrocyte distribution width (RBC) [Ratio] 12.7 % 11.6-14.6 [facility] Immature granulocytes/100 WBC (Bld) 0.500 % 0.0-0.9 [facility] Comment on above: IG% - Immature Granu locytes (promyelocytes, myelocytes and metamyelocytes) > 1% indicates that a LEFT SHIFT is Present. MCH (RBC) [Entitic mass] 29.9 pg 27.0-32.0 [facility] Nucleated RBC/100 WBC (Bld) [Ratio] 0 % 0-5 [facility] MCHC Auto (RBC) [Mass/Vol]Or dered By: Renard Burgos on 02-06-2023 MCHC (RBC) [Mass/Vol] 31.7 g/dL 32-36 [facility] Platelets bldOrdered By: Pet er Loretta on 02-06-2023 Platelets (Bld) [#/Vol] 196 10*3/uL 150-450 [facility] Absolute lymphocyte countOrd ered By: Renard Burgos on 01-30-2023 Lymphocytes Auto (Unsp spec) [#/Vol] 1.91 10*3/uL 0.83-4.51 [facility] Basophil percentageOrdered B y: Renard Burgos on 01-30-2023 Basophils/100 WBC (Bld) 0.5 % 0-1 [facility] Eosinophils/100 WBC (Bld) 0.5 % 0-5 [facility] Neutrophils (Bld) [#/Vol] 6.0 10*3/uL 2.0-7.7 [facility] Neutrophils/100 WBC (Bld) 69.4 % 47-70 [facility] WBC (Bld) [#/Vol] 8.7 10*3/uL 4.4-11.0 [facility] Basophil percentage 0 SEEN /hpf 0-5 [facility] Bilirubin Test strip Ql (U)O rdered By: Renard Burgos on 01-30-2023 Bilirubin Ql (U) Negative Negative [facility] Blood erythrocytes count (nu mber/volume)Ordered By: Renard Burgos on 01-30-2023 RBC (Bld) [#/Vol] 4.50 10*6/uL 4.6-6.2 [facility] Blood hemoglobin measurement (mass/volume)Ordered By: Renard Burgos on 01-30-2023 Hemoglobin (Bld) [Mass/Vol] 13.5 g/dL 13.0-16.5 [facility] Blood lymphocytes/100 leukoc ytesOrdered By: Renard Burgos on 01-30-2023 Lymphocytes/100 WBC (Bld) 22.1 % 19-41 [facility] Blood monocytes/100 leukocyt esOrdered By: Renard Burgos on 01-30-2023 Monocytes/100 WBC (Bld) 7.2 % 0-10 [facility] Blood platelet mean volumeOr dered By: Renard Burgos on 01-30-2023 Platelet mean volume (Bld) [Entitic vol] 11.1 fL 6.2-12.0 [facility] Culture, urineOrdered By: Garrick Bhatt on 01-30-2023 Bacteria identified Cx Nom (U) Positive [facility] Determination of erythrocyte mean corpuscular volume (MCV)Ordered By: Renard Burgos on 01-30-2023 MCV (RBC) [Entitic vol] 91.3 fL 80-94 [facility] Hematocrit Auto (Bld) [Volum e fraction]Ordered By: Renard Burgos on 01-30-2023 Hematocrit (Bld) [Volume fraction] 41.1 % 40-54 [facility] Ketones Test strip Ql (U)Ord ered By: Renard Burgos on 01-30-2023 Ketones Ql (U) Negative Negative [facility] Laboratory - Hematology and Cell countsOrdered By: Renard Burgos on 01-30-2023 Erythrocyte distribution width (RBC) [Entitic vol] 41.4 fL 35.1-43.9 [facility] Erythrocyte distribution width (RBC) [Ratio] 12.6 % 11.6-14.6 [facility] Immature granulocytes/100 WBC (Bld) 0.300 % 0.0-0.9 [facility] Comment on above: IG% - Immature Granu locytes (promyelocytes, myelocytes and metamyelocytes) > 1% indicates that a LEFT SHIFT is Present. MCH (RBC) [Entitic mass] 30.0 pg 27.0-32.0 [facility] Nucleated RBC/100 WBC (Bld) [Ratio] 0 % 0-5 [facility] MCHC Auto (RBC) [Mass/Vol]Or dered By: Renard Burgos on 01-30-2023 MCHC (RBC) [Mass/Vol] 32.8 g/dL 32-36 [facility] Mucus LM Ql (Urine sed)Order ed By: Renard Burgos on 01-30-2023 Mucus Ql (Urine sed) 0 SEEN /hpf [facility] Nitrite Test strip Ql (U)Ord ered By: Renard Burgos on 01-30-2023 Nitrite Ql (U) Negative Negative [facility] No Panel InformationOrdered By: Renard Burgos on 01-30-2023 Prostate Specific Antigen Screen 4.18 ng/mL 0.00-4.00 [facility] Comment on above: This test was perfor med using the TPSA assay method for [employer] chemistry system. Values obtained with differentassay methods cannot be used interchangably.When changing PSA assays in the course of monitoring apatient, additional sequential testing should be carriedout to confirm baseline values. Platelets bldOrdered By: Lyubov Burgos on 01-30-2023 Platelets (Bld) [#/Vol] 205 10*3/uL 150-450 [facility] Protein Test strip Ql (U)Ord ered By: Renard Burgos on 01-30-2023 Protein Ql (U) Negative Negative [facility] Squamous epithelial cells de tection in urine sediment by light microscopyOrdered By: Renard Burgos on 01-30-2023 Epithelial cells.squamous LM Ql (Urine sed) 0-5 SEEN /hpf 0-5 [facility] Urine blood detectionOrdered By: Renard Burgos on 01-30-2023 RBC Ql (U) Negative Negative [facility] RBC Ql (U) 0 SEEN /hpf 0-5 [facility] Urine clarityOrdered By: Lyubov Burgos on 01-30-2023 Clarity (U) Clear Clear [facility] Urine color determinationOrd ered By: Renard Burgos on 01-30-2023 Color (U) Yellow Yellow [facility] Urine glucose detectionOrder ed By: Renard Burgos on 01-30-2023 Glucose Ql (U) Normal mg/dl Normal [facility] Urine leukocyte esterase det ection by dipstickOrdered By: Renard Burgos on 01-30-2023 Leukocyte esterase Test strip Ql (U) Negative Negative [facility] Urine pHOrdered By: Renard ocampo on 01-30-2023 pH (U) 8.0 [pH] 5.0 - 8.0 [facility] Urine sediment bacteria coun t by microscopy (number/high power field)Ordered By: Renard Burgos on 01-30-2023 Bacteria LM.HPF (Urine sed) [#/Area] 0 /[HPF] None Seen [facility] Urine specific gravity measu rementOrdered By: Renard Burgos on 01-30-2023 Specific gravity (U) [Rel density] 1.010 1.002-1.030 [facility] Urobilinogen Auto test strip Ql (U)Ordered By: Renard Burgos on 01-30-2023 Urobilinogen Ql (U) Normal mg/dl Normal [facility] Absolute lymphocyte countOrd ered By: Renard Burgos on 01-23-2023 Lymphocytes Auto (Unsp spec) [#/Vol] 2.32 10*3/uL 0.83-4.51 [facility] Basophil percentageOrdered B y: Renard Burgos on 01-23-2023 Basophils/100 WBC (Bld) 0.6 % 0-1 [facility] Eosinophils/100 WBC (Bld) 0.4 % 0-5 [facility] Neutrophils (Bld) [#/Vol] 5.3 10*3/uL 2.0-7.7 [facility] Neutrophils/100 WBC (Bld) 62.7 % 47-70 [facility] WBC (Bld) [#/Vol] 8.4 10*3/uL 4.4-11.0 [facility] Blood erythrocytes count (nu mber/volume)Ordered By: Renard Burgos on 01-23-2023 RBC (Bld) [#/Vol] 4.49 10*6/uL 4.6-6.2 [facility] Blood hemoglobin measurement (mass/volume)Ordered By: Renard Burgos on 01-23-2023 Hemoglobin (Bld) [Mass/Vol] 13.6 g/dL 13.0-16.5 [facility] Blood lymphocytes/100 leukoc ytesOrdered By: Renard Burgos on 01-23-2023 Lymphocytes/100 WBC (Bld) 27.5 % 19-41 [facility] Blood monocytes/100 leukocyt esOrdered By: Renard Burgos on 01-23-2023 Monocytes/100 WBC (Bld) 8.2 % 0-10 [facility] Blood platelet mean volumeOr dered By: Renard Burgos on 01-23-2023 Platelet mean volume (Bld) [Entitic vol] 10.9 fL 6.2-12.0 [facility] Determination of erythrocyte mean corpuscular volume (MCV)Ordered By: Renard Burgos on 01-23-2023 MCV (RBC) [Entitic vol] 93.1 fL 80-94 [facility] Hematocrit Auto (Bld) [Volum e fraction]Ordered By: Renard Burgos on 01-23-2023 Hematocrit (Bld) [Volume fraction] 41.8 % 40-54 [facility] Laboratory - Hematology and Cell countsOrdered By: Renard Burgos on 01-23-2023 Erythrocyte distribution width (RBC) [Entitic vol] 42.7 fL 35.1-43.9 [facility] Erythrocyte distribution width (RBC) [Ratio] 12.6 % 11.6-14.6 [facility] Immature granulocytes/100 WBC (Bld) 0.600 % 0.0-0.9 [facility] Comment on above: IG% - Immature Granu locytes (promyelocytes, myelocytes and metamyelocytes) > 1% indicates that a LEFT SHIFT is Present. MCH (RBC) [Entitic mass] 30.3 pg 27.0-32.0 [facility] Nucleated RBC/100 WBC (Bld) [Ratio] 0 % 0-5 [facility] MCHC Auto (RBC) [Mass/Vol]Or dered By: Renard Burgos on 01-23-2023 MCHC (RBC) [Mass/Vol] 32.5 g/dL 32-36 [facility] Platelets bldOrdered By: Lyubov Burgos on 01-23-2023 Platelets (Bld) [#/Vol] 220 10*3/uL 150-450 [facility] Absolute lymphocyte countOrd ered By: Renard Burgos on 01-16-2023 Lymphocytes Auto (Unsp spec) [#/Vol] 1.80 10*3/uL 0.83-4.51 [facility] Basophil percentageOrdered B y: Renard Burgos on 01-16-2023 Basophils/100 WBC (Bld) 0.4 % 0-1 [facility] Eosinophils/100 WBC (Bld) 0.4 % 0-5 [facility] Neutrophils (Bld) [#/Vol] 7.2 10*3/uL 2.0-7.7 [facility] Neutrophils/100 WBC (Bld) 73.5 % 47-70 [facility] WBC (Bld) [#/Vol] 9.8 10*3/uL 4.4-11.0 [facility] Blood erythrocytes count (nu mber/volume)Ordered By: Renard Burgos on 01-16-2023 RBC (Bld) [#/Vol] 4.77 10*6/uL 4.6-6.2 [facility] Blood hemoglobin measurement (mass/volume)Ordered By: Renard Burgos on 01-16-2023 Hemoglobin (Bld) [Mass/Vol] 14.1 g/dL 13.0-16.5 [facility] Blood lymphocytes/100 leukoc ytesOrdered By: Renard Burgos on 01-16-2023 Lymphocytes/100 WBC (Bld) 18.4 % 19-41 [facility] Blood monocytes/100 leukocyt esOrdered By: Renard Burgos on 01-16-2023 Monocytes/100 WBC (Bld) 6.9 % 0-10 [facility] Blood platelet mean volumeOr dered By: Renard Burgos on 01-16-2023 Platelet mean volume (Bld) [Entitic vol] 10.6 fL 6.2-12.0 [facility] Determination of erythrocyte mean corpuscular volume (MCV)Ordered By: Renard Burgos on 01-16-2023 MCV (RBC) [Entitic vol] 92.5 fL 80-94 [facility] Hematocrit Auto (Bld) [Volum e fraction]Ordered By: Renard Burgos on 01-16-2023 Hematocrit (Bld) [Volume fraction] 44.1 % 40-54 [facility] - Hematology and Cell countsOrdered By: Renard Burgos on 01-16-2023 Erythrocyte distribution width (RBC) [Entitic vol] 41.8 fL 35.1-43.9 [facility] Erythrocyte distribution width (RBC) [Ratio] 12.4 % 11.6-14.6 [facility] Immature granulocytes/100 WBC (Bld) 0.400 % 0.0-0.9 [facility] Comment on above: IG% - Immature Granu locytes (promyelocytes, myelocytes and metamyelocytes) > 1% indicates that a LEFT SHIFT is Present. MCH (RBC) [Entitic mass] 29.6 pg 27.0-32.0 [facility] Nucleated RBC/100 WBC (Bld) [Ratio] 0 % 0-5 [facility] MCHC Auto (RBC) [Mass/Vol]Or dered By: Renard Burgos on 01-16-2023 MCHC (RBC) [Mass/Vol] 32.0 g/dL 32-36 [facility] Platelets bldOrdered By: Lyubov Burgos on 01-16-2023 Platelets (Bld) [#/Vol] 221 10*3/uL 150-450 [facility] Absolute lymphocyte countOrd ered By: Renard Burgos on 01-09-2023 Lymphocytes Auto (Unsp spec) [#/Vol] 2.41 10*3/uL 0.83-4.51 [facility] Basophil percentageOrdered B y: Renard Burgos on 01-09-2023 Basophils/100 WBC (Bld) 0.7 % 0-1 [facility] Eosinophils/100 WBC (Bld) 0.8 % 0-5 [facility] Neutrophils (Bld) [#/Vol] 5.4 10*3/uL 2.0-7.7 [facility] Neutrophils/100 WBC (Bld) 60.5 % 47-70 [facility] WBC (Bld) [#/Vol] 8.9 10*3/uL 4.4-11.0 [facility] Blood erythrocytes count (nu mber/volume)Ordered By: Renard Burgos on 01-09-2023 RBC (Bld) [#/Vol] 4.56 10*6/uL 4.6-6.2 [facility] Blood hemoglobin measurement (mass/volume)Ordered By: Renard Burgos on 01-09-2023 Hemoglobin (Bld) [Mass/Vol] 13.8 g/dL 13.0-16.5 [facility] Blood lymphocytes/100 leukoc ytesOrdered By: Renard Burgos on 01-09-2023 Lymphocytes/100 WBC (Bld) 27.0 % 19-41 [facility] Blood monocytes/100 leukocyt esOrdered By: Renard Burgos on 01-09-2023 Monocytes/100 WBC (Bld) 10.7 % 0-10 [facility] Blood platelet mean volumeOr dered By: Renard Burgos on 01-09-2023 Platelet mean volume (Bld) [Entitic vol] 10.8 fL 6.2-12.0 [facility] Determination of erythrocyte mean corpuscular volume (MCV)Ordered By: Renard Burgos on 01-09-2023 MCV (RBC) [Entitic vol] 92.5 fL 80-94 [facility] Hematocrit Auto (Bld) [Volum e fraction]Ordered By: Renard Burgos on 01-09-2023 Hematocrit (Bld) [Volume fraction] 42.2 % 40-54 [facility] Laboratory - Hematology and Cell countsOrdered By: Renard Burgos on 01-09-2023 Erythrocyte distribution width (RBC) [Entitic vol] 42.7 fL 35.1-43.9 [facility] Erythrocyte distribution width (RBC) [Ratio] 12.5 % 11.6-14.6 [facility] Immature granulocytes/100 WBC (Bld) 0.300 % 0.0-0.9 [facility] Comment on above: IG% - Immature Granu locytes (promyelocytes, myelocytes and metamyelocytes) > 1% indicates that a LEFT SHIFT is Present. MCH (RBC) [Entitic mass] 30.3 pg 27.0-32.0 [facility] Nucleated RBC/100 WBC (Bld) [Ratio] 0 % 0-5 [facility] MCHC Auto (RBC) [Mass/Vol]Or dered By: Renard Burgos on 01-09-2023 MCHC (RBC) [Mass/Vol] 32.7 g/dL 32-36 [facility] Platelets bldOrdered By: Lyubov Burgos on 01-09-2023 Platelets (Bld) [#/Vol] 209 10*3/uL 150-450 [facility] Absolute lymphocyte countOrd ered By: Renard Burgos on 01-03-2023 Lymphocytes Auto (Unsp spec) [#/Vol] 2.18 10*3/uL 0.83-4.51 [facility] Basophil percentageOrdered B y: Renard Burgos on 01-03-2023 Basophils/100 WBC (Bld) 0.6 % 0-1 [facility] Eosinophils/100 WBC (Bld) 0.5 % 0-5 [facility] Neutrophils (Bld) [#/Vol] 5.4 10*3/uL 2.0-7.7 [facility] Neutrophils/100 WBC (Bld) 64.2 % 47-70 [facility] WBC (Bld) [#/Vol] 8.4 10*3/uL 4.4-11.0 [facility] Blood erythrocytes count (nu mber/volume)Ordered By: Renard Burgos on 01-03-2023 RBC (Bld) [#/Vol] 4.59 10*6/uL 4.6-6.2 [facility] Blood hemoglobin measurement (mass/volume)Ordered By: Renard Burgos on 01-03-2023 Hemoglobin (Bld) [Mass/Vol] 13.9 g/dL 13.0-16.5 [facility] Blood lymphocytes/100 leukoc ytesOrdered By: Renard Burgos on 01-03-2023 Lymphocytes/100 WBC (Bld) 25.9 % 19-41 [facility] Blood monocytes/100 leukocyt esOrdered By: Renard Burgos on 01-03-2023 Monocytes/100 WBC (Bld) 8.3 % 0-10 [facility] Blood platelet mean volumeOr dered By: Renard Burgos on 01-03-2023 Platelet mean volume (Bld) [Entitic vol] 11.0 fL 6.2-12.0 [facility] Determination of erythrocyte mean corpuscular volume (MCV)Ordered By: Renard Burgos on 01-03-2023 MCV (RBC) [Entitic vol] 92.8 fL 80-94 [facility] Hematocrit Auto (Bld) [Volum e fraction]Ordered By: Renard Burgos on 01-03-2023 Hematocrit (Bld) [Volume fraction] 42.6 % 40-54 [facility] - Hematology and Cell countsOrdered By: Renard Burgos on 01-03-2023 Erythrocyte distribution width (RBC) [Entitic vol] 42.5 fL 35.1-43.9 [facility] Erythrocyte distribution width (RBC) [Ratio] 12.6 % 11.6-14.6 [facility] Immature granulocytes/100 WBC (Bld) 0.500 % 0.0-0.9 [facility] Comment on above: IG% - Immature Granu locytes (promyelocytes, myelocytes and metamyelocytes) > 1% indicates that a LEFT SHIFT is Present. MCH (RBC) [Entitic mass] 30.3 pg 27.0-32.0 [facility] Nucleated RBC/100 WBC (Bld) [Ratio] 0 % 0-5 [facility] MCHC Auto (RBC) [Mass/Vol]Or dered By: Renard Burgos on 01-03-2023 MCHC (RBC) [Mass/Vol] 32.6 g/dL 32-36 [facility] No Panel InformationOrdered By: Renard Burgos on 01-03-2023 Prostate Specific Antigen Screen 3.37 ng/mL 0.00-4.00 [facility] Comment on above: This test was perfor med using the TPSA assay method for the[employer] chemistry system. Values obtained with differentassay methods cannot be used interchangably.When changing PSA assays in the course of monitoring apatient, additional sequential testing should be carriedout to confirm baseline values. Platelets bldOrdered By: Lyubov Burgos on 01-03-2023 Platelets (Bld) [#/Vol] 200 10*3/uL 150-450 [facility] Absolute lymphocyte countOrd ered By: Renard Burgos on 12-26-2022 Lymphocytes Auto (Unsp spec) [#/Vol] 1.80 10*3/uL 0.83-4.51 [facility] Basophil percentageOrdered B y: Renard Burgos on 12-26-2022 Basophils/100 WBC (Bld) 0.4 % 0-1 [facility] Eosinophils/100 WBC (Bld) 0.6 % 0-5 [facility] Neutrophils (Bld) [#/Vol] 6.2 10*3/uL 2.0-7.7 [facility] Neutrophils/100 WBC (Bld) 69.8 % 47-70 [facility] WBC (Bld) [#/Vol] 8.9 10*3/uL 4.4-11.0 [facility] Blood erythrocytes count (nu mber/volume)Ordered By: Renard Burgos on 12-26-2022 RBC (Bld) [#/Vol] 4.58 10*6/uL 4.6-6.2 [facility] Blood hemoglobin measurement (mass/volume)Ordered By: Renard Burgos on 12-26-2022 Hemoglobin (Bld) [Mass/Vol] 14.0 g/dL 13.0-16.5 [facility] Blood lymphocytes/100 leukoc ytesOrdered By: Renard Burgos on 12-26-2022 Lymphocytes/100 WBC (Bld) 20.2 % 19-41 [facility] Blood monocytes/100 leukocyt esOrdered By: Renard Burgos on 12-26-2022 Monocytes/100 WBC (Bld) 8.6 % 0-10 [facility] Blood platelet mean volumeOr dered By: Renard Burgos on 12-26-2022 Platelet mean volume (Bld) [Entitic vol] 10.8 fL 6.2-12.0 [facility] Determination of erythrocyte mean corpuscular volume (MCV)Ordered By: Renard Burgos on 12-26-2022 MCV (RBC) [Entitic vol] 93.2 fL 80-94 [facility] Hematocrit Auto (Bld) [Volum e fraction]Ordered By: Renard Burgos on 12-26-2022 Hematocrit (Bld) [Volume fraction] 42.7 % 40-54 [facility] - Hematology and Cell countsOrdered By: Renard Burgos on 12-26-2022 Erythrocyte distribution width (RBC) [Entitic vol] 42.5 fL 35.1-43.9 [facility] Erythrocyte distribution width (RBC) [Ratio] 12.5 % 11.6-14.6 [facility] Immature granulocytes/100 WBC (Bld) 0.400 % 0.0-0.9 [facility] Comment on above: IG% - Immature Granu locytes (promyelocytes, myelocytes and metamyelocytes) > 1% indicates that a LEFT SHIFT is Present. MCH (RBC) [Entitic mass] 30.6 pg 27.0-32.0 [facility] Nucleated RBC/100 WBC (Bld) [Ratio] 0 % 0-5 [facility] MCHC Auto (RBC) [Mass/Vol]Or dered By: Renard Burgos on 12-26-2022 MCHC (RBC) [Mass/Vol] 32.8 g/dL 32-36 [facility] Platelets bldOrdered By: Pet lizy Loretta on 12-26-2022 Platelets (Bld) [#/Vol] 200 10*3/uL 150-450 [facility] Absolute lymphocyte countOrd ered By: Renard Burgos on 12-19-2022 Lymphocytes Auto (Unsp spec) [#/Vol] 2.24 10*3/uL 0.83-4.51 [facility] Basophil percentageOrdered B y: Renard Burgos on 12-19-2022 Basophils/100 WBC (Bld) 0.3 % 0-1 [facility] Eosinophils/100 WBC (Bld) 0.8 % 0-5 [facility] Neutrophils (Bld) [#/Vol] 5.7 10*3/uL 2.0-7.7 [facility] Neutrophils/100 WBC (Bld) 64.1 % 47-70 [facility] WBC (Bld) [#/Vol] 8.9 10*3/uL 4.4-11.0 [facility] Blood erythrocytes count (nu mber/volume)Ordered By: Renard Burgos on 12-19-2022 RBC (Bld) [#/Vol] 4.44 10*6/uL 4.6-6.2 [facility] Blood hemoglobin measurement (mass/volume)Ordered By: Renard Burgos on 12-19-2022 Hemoglobin (Bld) [Mass/Vol] 13.5 g/dL 13.0-16.5 [facility] Blood lymphocytes/100 leukoc ytesOrdered By: Renard Burgos on 12-19-2022 Lymphocytes/100 WBC (Bld) 25.1 % 19-41 [facility] Blood monocytes/100 leukocyt esOrdered By: Renard Burgos on 12-19-2022 Monocytes/100 WBC (Bld) 9.4 % 0-10 [facility] Blood platelet mean volumeOr dered By: Renard Burgos on 12-19-2022 Platelet mean volume (Bld) [Entitic vol] 11.0 fL 6.2-12.0 [facility] Determination of erythrocyte mean corpuscular volume (MCV)Ordered By: Renard Burgos on 12-19-2022 MCV (RBC) [Entitic vol] 92.8 fL 80-94 [facility] Hematocrit Auto (Bld) [Volum e fraction]Ordered By: Renard Burgos on 12-19-2022 Hematocrit (Bld) [Volume fraction] 41.2 % 40-54 [facility] - Hematology and Cell countsOrdered By: Renard Burgos on 12-19-2022 Erythrocyte distribution width (RBC) [Entitic vol] 43.2 fL 35.1-43.9 [facility] Erythrocyte distribution width (RBC) [Ratio] 12.7 % 11.6-14.6 [facility] Immature granulocytes/100 WBC (Bld) 0.300 % 0.0-0.9 [facility] Comment on above: IG% - Immature Granu locytes (promyelocytes, myelocytes and metamyelocytes) > 1% indicates that a LEFT SHIFT is Present. MCH (RBC) [Entitic mass] 30.4 pg 27.0-32.0 [facility] Nucleated RBC/100 WBC (Bld) [Ratio] 0 % 0-5 [facility] MCHC Auto (RBC) [Mass/Vol]Or dered By: Renard Burgos on 12-19-2022 MCHC (RBC) [Mass/Vol] 32.8 g/dL 32-36 [facility] Platelets bldOrdered By: Lyubov Burgos on 12-19-2022 Platelets (Bld) [#/Vol] 194 10*3/uL 150-450 [facility] Absolute lymphocyte countOrd ered By: Renard Burgos on 12-12-2022 Lymphocytes Auto (Unsp spec) [#/Vol] 2.33 10*3/uL 0.83-4.51 [facility] Basophil percentageOrdered B y: Renard Burgos on 12-12-2022 Basophils/100 WBC (Bld) 0.6 % 0-1 [facility] Eosinophils/100 WBC (Bld) 0.9 % 0-5 [facility] Neutrophils (Bld) [#/Vol] 5.8 10*3/uL 2.0-7.7 [facility] Neutrophils/100 WBC (Bld) 63.5 % 47-70 [facility] WBC (Bld) [#/Vol] 9.1 10*3/uL 4.4-11.0 [facility] Blood erythrocytes count (nu mber/volume)Ordered By: Renard Burgos on 12-12-2022 RBC (Bld) [#/Vol] 4.52 10*6/uL 4.6-6.2 [facility] Blood hemoglobin measurement (mass/volume)Ordered By: Renard Burgos on 12-12-2022 Hemoglobin (Bld) [Mass/Vol] 13.9 g/dL 13.0-16.5 [facility] Blood lymphocytes/100 leukoc ytesOrdered By: Renard Burgos on 12-12-2022 Lymphocytes/100 WBC (Bld) 25.6 % 19-41 [facility] Blood monocytes/100 leukocyt esOrdered By: Renard Burgos on 12-12-2022 Monocytes/100 WBC (Bld) 9.1 % 0-10 [facility] Blood platelet mean volumeOr dered By: Renard Burgos on 12-12-2022 Platelet mean volume (Bld) [Entitic vol] 10.9 fL 6.2-12.0 [facility] Determination of erythrocyte mean corpuscular volume (MCV)Ordered By: Renard Burgos on 12-12-2022 MCV (RBC) [Entitic vol] 94.2 fL 80-94 [facility] Hematocrit Auto (Bld) [Volum e fraction]Ordered By: Renard Burgos on 12-12-2022 Hematocrit (Bld) [Volume fraction] 42.6 % 40-54 [facility] - Hematology and Cell countsOrdered By: Renard Burgos on 12-12-2022 Erythrocyte distribution width (RBC) [Entitic vol] 44.3 fL 35.1-43.9 [facility] Erythrocyte distribution width (RBC) [Ratio] 12.8 % 11.6-14.6 [facility] Immature granulocytes/100 WBC (Bld) 0.300 % 0.0-0.9 [facility] Comment on above: IG% - Immature Granu locytes (promyelocytes, myelocytes and metamyelocytes) > 1% indicates that a LEFT SHIFT is Present. MCH (RBC) [Entitic mass] 30.8 pg 27.0-32.0 [facility] Nucleated RBC/100 WBC (Bld) [Ratio] 0 % 0-5 [facility] MCHC Auto (RBC) [Mass/Vol]Or dered By: Renard Burgos on 12-12-2022 MCHC (RBC) [Mass/Vol] 32.6 g/dL 32-36 [facility] Platelets bldOrdered By: Lyubov Burgos on 12-12-2022 Platelets (Bld) [#/Vol] 211 10*3/uL 150-450 [facility] Absolute lymphocyte countOrd ered By: Renard Burgos on 12-05-2022 Lymphocytes Auto (Unsp spec) [#/Vol] 1.94 10*3/uL 0.83-4.51 [facility] Basophil percentageOrdered B y: Renard Burgos on 12-05-2022 Basophils/100 WBC (Bld) 0.4 % 0-1 [facility] Eosinophils/100 WBC (Bld) 0.9 % 0-5 [facility] Neutrophils (Bld) [#/Vol] 4.1 10*3/uL 2.0-7.7 [facility] Neutrophils/100 WBC (Bld) 61.2 % 47-70 [facility] WBC (Bld) [#/Vol] 6.7 10*3/uL 4.4-11.0 [facility] Blood erythrocytes count (nu mber/volume)Ordered By: Renard Burgos on 12-05-2022 RBC (Bld) [#/Vol] 4.39 10*6/uL 4.6-6.2 [facility] Blood hemoglobin measurement (mass/volume)Ordered By: Renard Burgos on 12-05-2022 Hemoglobin (Bld) [Mass/Vol] 13.3 g/dL 13.0-16.5 [facility] Blood lymphocytes/100 leukoc ytesOrdered By: Renard Burgos on 12-05-2022 Lymphocytes/100 WBC (Bld) 28.8 % 19-41 [facility] Blood monocytes/100 leukocyt esOrdered By: Renard Burgos on 12-05-2022 Monocytes/100 WBC (Bld) 8.3 % 0-10 [facility] Blood platelet mean volumeOr dered By: Renard Burgos on 12-05-2022 Platelet mean volume (Bld) [Entitic vol] 10.8 fL 6.2-12.0 [facility] Determination of erythrocyte mean corpuscular volume (MCV)Ordered By: Renard Burgos on 12-05-2022 MCV (RBC) [Entitic vol] 90.7 fL 80-94 [facility] Hematocrit Auto (Bld) [Volum e fraction]Ordered By: Renard Burgos on 12-05-2022 Hematocrit (Bld) [Volume fraction] 39.8 % 40-54 [facility] - Hematology and Cell countsOrdered By: Renard Burgos on 12-05-2022 Erythrocyte distribution width (RBC) [Entitic vol] 41.8 fL 35.1-43.9 [facility] Erythrocyte distribution width (RBC) [Ratio] 12.6 % 11.6-14.6 [facility] Immature granulocytes/100 WBC (Bld) 0.400 % 0.0-0.9 [facility] Comment on above: IG% - Immature Granu locytes (promyelocytes, myelocytes and metamyelocytes) > 1% indicates that a LEFT SHIFT is Present. MCH (RBC) [Entitic mass] 30.3 pg 27.0-32.0 [facility] Nucleated RBC/100 WBC (Bld) [Ratio] 0 % 0-5 [facility] MCHC Auto (RBC) [Mass/Vol]Or dered By: Renard Burgos on 12-05-2022 MCHC (RBC) [Mass/Vol] 33.4 g/dL 32-36 [facility] Platelets bldOrdered By: Lyubov Burgos on 12-05-2022 Platelets (Bld) [#/Vol] 208 10*3/uL 150-450 [facility] Absolute lymphocyte countOrd ered By: Renard Burgos on 11-28-2022 Lymphocytes Auto (Unsp spec) [#/Vol] 2.07 10*3/uL 0.83-4.51 [facility] Basophil percentageOrdered B y: Renard Burgos on 11-28-2022 Basophils/100 WBC (Bld) 0.4 % 0-1 [facility] Eosinophils/100 WBC (Bld) 0.6 % 0-5 [facility] Neutrophils (Bld) [#/Vol] 5.1 10*3/uL 2.0-7.7 [facility] Neutrophils/100 WBC (Bld) 64.6 % 47-70 [facility] WBC (Bld) [#/Vol] 7.9 10*3/uL 4.4-11.0 [facility] Blood erythrocytes count (nu mber/volume)Ordered By: Renard Burgos on 11-28-2022 RBC (Bld) [#/Vol] 4.54 10*6/uL 4.6-6.2 [facility] Blood hemoglobin measurement (mass/volume)Ordered By: Renard Burgos on 11-28-2022 Hemoglobin (Bld) [Mass/Vol] 13.7 g/dL 13.0-16.5 [facility] Blood lymphocytes/100 leukoc ytesOrdered By: Renard Burgos on 11-28-2022 Lymphocytes/100 WBC (Bld) 26.2 % 19-41 [facility] Blood monocytes/100 leukocyt esOrdered By: Renard Burgos on 11-28-2022 Monocytes/100 WBC (Bld) 7.7 % 0-10 [facility] Blood platelet mean volumeOr dered By: Renard Burgos on 11-28-2022 Platelet mean volume (Bld) [Entitic vol] 10.6 fL 6.2-12.0 [facility] Determination of erythrocyte mean corpuscular volume (MCV)Ordered By: Renard Burgos on 11-28-2022 MCV (RBC) [Entitic vol] 93.6 fL 80-94 [facility] Hematocrit Auto (Bld) [Volum e fraction]Ordered By: Renard Burgos on 11-28-2022 Hematocrit (Bld) [Volume fraction] 42.5 % 40-54 [facility] - Hematology and Cell countsOrdered By: Renard Burgos on 11-28-2022 Erythrocyte distribution width (RBC) [Entitic vol] 43.5 fL 35.1-43.9 [facility] Erythrocyte distribution width (RBC) [Ratio] 12.7 % 11.6-14.6 [facility] Immature granulocytes/100 WBC (Bld) 0.500 % 0.0-0.9 [facility] Comment on above: IG% - Immature Granu locytes (promyelocytes, myelocytes and metamyelocytes) > 1% indicates that a LEFT SHIFT is Present. MCH (RBC) [Entitic mass] 30.2 pg 27.0-32.0 [facility] Nucleated RBC/100 WBC (Bld) [Ratio] 0 % 0-5 [facility] MCHC Auto (RBC) [Mass/Vol]Or dered By: Renard Burgos on 11-28-2022 MCHC (RBC) [Mass/Vol] 32.2 g/dL 32-36 [facility] Platelets bldOrdered By: Pet er Loretta on 11-28-2022 Platelets (Bld) [#/Vol] 201 10*3/uL 150-450 [facility] Absolute lymphocyte countOrd ered By: Renard Burgos on 11-21-2022 Lymphocytes Auto (Unsp spec) [#/Vol] 2.32 10*3/uL 0.83-4.51 [facility] Basophil percentageOrdered B y: Renard Burgos on 11-21-2022 Basophils/100 WBC (Bld) 0.6 % 0-1 [facility] Eosinophils/100 WBC (Bld) 0.7 % 0-5 [facility] Neutrophils (Bld) [#/Vol] 5.0 10*3/uL 2.0-7.7 [facility] Neutrophils/100 WBC (Bld) 60.6 % 47-70 [facility] WBC (Bld) [#/Vol] 8.2 10*3/uL 4.4-11.0 [facility] Blood erythrocytes count (nu mber/volume)Ordered By: Renard Burgos on 11-21-2022 RBC (Bld) [#/Vol] 4.71 10*6/uL 4.6-6.2 [facility] Blood hemoglobin measurement (mass/volume)Ordered By: Renard Burgos on 11-21-2022 Hemoglobin (Bld) [Mass/Vol] 14.3 g/dL 13.0-16.5 [facility] Blood lymphocytes/100 leukoc ytesOrdered By: Renard Burgos on 11-21-2022 Lymphocytes/100 WBC (Bld) 28.2 % 19-41 [facility] Blood monocytes/100 leukocyt esOrdered By: Renard Burgos on 11-21-2022 Monocytes/100 WBC (Bld) 9.2 % 0-10 [facility] Blood platelet mean volumeOr dered By: Renard Burgos on 11-21-2022 Platelet mean volume (Bld) [Entitic vol] 10.4 fL 6.2-12.0 [facility] Determination of erythrocyte mean corpuscular volume (MCV)Ordered By: Renard Burgos on 11-21-2022 MCV (RBC) [Entitic vol] 91.9 fL 80-94 [facility] Hematocrit Auto (Bld) [Volum e fraction]Ordered By: Renard Burgos on 11-21-2022 Hematocrit (Bld) [Volume fraction] 43.3 % 40-54 [facility] - Hematology and Cell countsOrdered By: Renard Burgos on 11-21-2022 Erythrocyte distribution width (RBC) [Entitic vol] 43.1 fL 35.1-43.9 [facility] Erythrocyte distribution width (RBC) [Ratio] 12.8 % 11.6-14.6 [facility] Immature granulocytes/100 WBC (Bld) 0.700 % 0.0-0.9 [facility] Comment on above: IG% - Immature Granu locytes (promyelocytes, myelocytes and metamyelocytes) > 1% indicates that a LEFT SHIFT is Present. MCH (RBC) [Entitic mass] 30.4 pg 27.0-32.0 [facility] Nucleated RBC/100 WBC (Bld) [Ratio] 0 % 0-5 [facility] MCHC Auto (RBC) [Mass/Vol]Or dered By: Renard Burgos on 11-21-2022 MCHC (RBC) [Mass/Vol] 33.0 g/dL 32-36 [facility] Platelets bldOrdered By: Lyubov Burgos on 11-21-2022 Platelets (Bld) [#/Vol] 219 10*3/uL 150-450 [facility] Absolute lymphocyte countOrd ered By: Renard Burgos on 11-14-2022 Lymphocytes Auto (Unsp spec) [#/Vol] 1.82 10*3/uL 0.83-4.51 [facility] Basophil percentageOrdered B y: Renard Burgos on 11-14-2022 Basophils/100 WBC (Bld) 0.4 % 0-1 [facility] Chloride [Moles/Vol] 107 mmol/L 98-107 [facility] Eosinophils/100 WBC (Bld) 0.4 % 0-5 [facility] Glucose [Mass/Vol] 121 mg/dL 74-106 [facility] Comment on above: Fasting Glucose resu lt from 100 to 125 mg/dL suggests IMPAIRED HOMEOSTASIS per A.D.A. criteria. Neutrophils (Bld) [#/Vol] 4.7 10*3/uL 2.0-7.7 [facility] Neutrophils/100 WBC (Bld) 66.6 % 47-70 [facility] Potassium [Moles/Vol] 3.7 mmol/L 3.5-5.1 [facility] Sodium [Moles/Vol] 141 mmol/L 136-145 [facility] WBC (Bld) [#/Vol] 7.1 10*3/uL 4.4-11.0 [facility] Blood erythrocytes count (nu mber/volume)Ordered By: Renard Burgos on 11-14-2022 RBC (Bld) [#/Vol] 4.35 10*6/uL 4.6-6.2 [facility] Blood hemoglobin measurement (mass/volume)Ordered By: Renard Burgos on 11-14-2022 Hemoglobin (Bld) [Mass/Vol] 13.6 g/dL 13.0-16.5 [facility] Blood lymphocytes/100 leukoc ytesOrdered By: Renard Burgos on 11-14-2022 Lymphocytes/100 WBC (Bld) 25.6 % 19-41 [facility] Blood monocytes/100 leukocyt esOrdered By: Renard Burgos on 11-14-2022 Monocytes/100 WBC (Bld) 6.6 % 0-10 [facility] Blood platelet mean volumeOr dered By: Renard Burgos on 11-14-2022 Platelet mean volume (Bld) [Entitic vol] 10.9 fL 6.2-12.0 [facility] Determination of erythrocyte mean corpuscular volume (MCV)Ordered By: Renard Burgos on 11-14-2022 MCV (RBC) [Entitic vol] 93.3 fL 80-94 [facility] Hematocrit Auto (Bld) [Volum e fraction]Ordered By: Renard Burgos on 11-14-2022 Hematocrit (Bld) [Volume fraction] 40.6 % 40-54 [facility] - Chemistry and C hemistry - challengeOrdered By: Renard Burgos on 11-14-2022 CO2 [Moles/Vol] 31.0 mmol/L 21.0-32.0 [facility] Urea nitrogen/Creatinine [Mass ratio] 26.0 mg/mg 10-20 [facility] - Hematology and Cell countsOrdered By: Renard Burgos on 11-14-2022 Erythrocyte distribution width (RBC) [Entitic vol] 43.9 fL 35.1-43.9 [facility] Erythrocyte distribution width (RBC) [Ratio] 12.8 % 11.6-14.6 [facility] Immature granulocytes/100 WBC (Bld) 0.400 % 0.0-0.9 [facility] Comment on above: IG% - Immature Granu locytes (promyelocytes, myelocytes and metamyelocytes) > 1% indicates that a LEFT SHIFT is Present. MCH (RBC) [Entitic mass] 31.3 pg 27.0-32.0 [facility] Nucleated RBC/100 WBC (Bld) [Ratio] 0 % 0-5 [facility] MCHC Auto (RBC) [Mass/Vol]Or dered By: Renard Burgos on 11-14-2022 MCHC (RBC) [Mass/Vol] 33.5 g/dL 32-36 [facility] No Panel InformationOrdered By: Renard Burgos on 11-14-2022 Estimated GFR (MDRD) Amer 147 mL/min >60 [facility] Comment on above: GFR Calc Estimated GFR (MDRD) Non-Af Amer 122 mL/min >60 [facility] Comment on above: Non- GFR Calc Platelets bldOrdered By: Lyubov Burgos on 11-14-2022 Platelets (Bld) [#/Vol] 202 10*3/uL 150-450 [facility] Serum or plasma calcium gordy urement (mass/volume)Ordered By: Renard Burgos on 11-14-2022 Calcium [Mass/Vol] 8.2 mg/dL 8.5-10.1 [facility] Serum or plasma creatinine m easurement (mass/volume)Ordered By: Renard Burgos on 11-14-2022 Creatinine [Mass/Vol] 0.69 mg/dL 0.70-1.30 [facility] Comment on above: The validity of the calculated GFR & GFRAA in patients over 70 years has not been determined. Clinical correlation is essential. Serum or plasma urea nitroge n measurement (mass/volume)Ordered By: Renard Burgos on 11-14-2022 Urea nitrogen [Mass/Vol] 18 mg/dL 7-18 [facility] Thin prep Papanicolaou smear with manual screeningOrdered By: Renard Burgos on 11-14-2022 Thin prep Papanicolaou smear with manual screening 3 5-15 [facility] Absolute lymphocyte countOrd ered By: Renard Burgos on 11-07-2022 Lymphocytes Auto (Unsp spec) [#/Vol] 1.99 10*3/uL 0.83-4.51 [facility] Basophil percentageOrdered B y: Renard Burgos on 11-07-2022 Basophils/100 WBC (Bld) 0.8 % 0-1 [facility] Eosinophils/100 WBC (Bld) 0.5 % 0-5 [facility] Neutrophils (Bld) [#/Vol] 5.1 10*3/uL 2.0-7.7 [facility] Neutrophils/100 WBC (Bld) 64.0 % 47-70 [facility] WBC (Bld) [#/Vol] 8.0 10*3/uL 4.4-11.0 [facility] Blood erythrocytes count (nu mber/volume)Ordered By: Renard Burgos on 11-07-2022 RBC (Bld) [#/Vol] 4.45 10*6/uL 4.6-6.2 [facility] Blood hemoglobin measurement (mass/volume)Ordered By: Renard Burgos on 11-07-2022 Hemoglobin (Bld) [Mass/Vol] 13.7 g/dL 13.0-16.5 [facility] Blood lymphocytes/100 leukoc ytesOrdered By: Renard Burgos on 11-07-2022 Lymphocytes/100 WBC (Bld) 25.0 % 19-41 [facility] Blood monocytes/100 leukocyt esOrdered By: Renard Burgos on 11-07-2022 Monocytes/100 WBC (Bld) 9.4 % 0-10 [facility] Blood platelet mean volumeOr dered By: Renard Burgos on 11-07-2022 Platelet mean volume (Bld) [Entitic vol] 10.7 fL 6.2-12.0 [facility] Determination of erythrocyte mean corpuscular volume (MCV)Ordered By: Renard Burgos on 11-07-2022 MCV (RBC) [Entitic vol] 91.5 fL 80-94 [facility] Hematocrit Auto (Bld) [Volum e fraction]Ordered By: Renard Burgos on 11-07-2022 Hematocrit (Bld) [Volume fraction] 40.7 % 40-54 [facility] - Hematology and Cell countsOrdered By: Renard Burgos on 11-07-2022 Erythrocyte distribution width (RBC) [Entitic vol] 42.4 fL 35.1-43.9 [facility] Erythrocyte distribution width (RBC) [Ratio] 12.8 % 11.6-14.6 [facility] Immature granulocytes/100 WBC (Bld) 0.300 % 0.0-0.9 [facility] Comment on above: IG% - Immature Granu locytes (promyelocytes, myelocytes and metamyelocytes) > 1% indicates that a LEFT SHIFT is Present. MCH (RBC) [Entitic mass] 30.8 pg 27.0-32.0 [facility] Nucleated RBC/100 WBC (Bld) [Ratio] 0 % 0-5 [facility] MCHC Auto (RBC) [Mass/Vol]Or dered By: Renard Burgos on 11-07-2022 MCHC (RBC) [Mass/Vol] 33.7 g/dL 32-36 [facility] Platelets bldOrdered By: Lyubov Burgos on 11-07-2022 Platelets (Bld) [#/Vol] 220 10*3/uL 150-450 [facility] Absolute lymphocyte countOrd ered By: Renard Burgos on 10-31-2022 Lymphocytes Auto (Unsp spec) [#/Vol] 1.97 10*3/uL 0.83-4.51 [facility] Basophil percentageOrdered B y: Renard Burgos on 10-31-2022 Basophils/100 WBC (Bld) 0.5 % 0-1 [facility] Eosinophils/100 WBC (Bld) 0.6 % 0-5 [facility] Neutrophils (Bld) [#/Vol] 6.7 10*3/uL 2.0-7.7 [facility] Neutrophils/100 WBC (Bld) 69.9 % 47-70 [facility] WBC (Bld) [#/Vol] 9.6 10*3/uL 4.4-11.0 [facility] Blood erythrocytes count (nu mber/volume)Ordered By: Renard Burgos on 10-31-2022 RBC (Bld) [#/Vol] 4.47 10*6/uL 4.6-6.2 [facility] Blood hemoglobin measurement (mass/volume)Ordered By: Renard Burgos on 10-31-2022 Hemoglobin (Bld) [Mass/Vol] 13.5 g/dL 13.0-16.5 [facility] Blood lymphocytes/100 leukoc ytesOrdered By: Renard Burgos on 10-31-2022 Lymphocytes/100 WBC (Bld) 20.5 % 19-41 [facility] Blood monocytes/100 leukocyt esOrdered By: Renard Burgos on 10-31-2022 Monocytes/100 WBC (Bld) 7.9 % 0-10 [facility] Blood platelet mean volumeOr dered By: Renard Burgos on 10-31-2022 Platelet mean volume (Bld) [Entitic vol] 11.1 fL 6.2-12.0 [facility] Determination of erythrocyte mean corpuscular volume (MCV)Ordered By: Renard Burgos on 10-31-2022 MCV (RBC) [Entitic vol] 92.4 fL 80-94 [facility] Hematocrit Auto (Bld) [Volum e fraction]Ordered By: Renard Burgos on 10-31-2022 Hematocrit (Bld) [Volume fraction] 41.3 % 40-54 [facility] - Hematology and Cell countsOrdered By: Renard Burgos on 10-31-2022 Erythrocyte distribution width (RBC) [Entitic vol] 42.9 fL 35.1-43.9 [facility] Erythrocyte distribution width (RBC) [Ratio] 12.7 % 11.6-14.6 [facility] Immature granulocytes/100 WBC (Bld) 0.600 % 0.0-0.9 [facility] Comment on above: IG% - Immature Granu locytes (promyelocytes, myelocytes and metamyelocytes) > 1% indicates that a LEFT SHIFT is Present. MCH (RBC) [Entitic mass] 30.2 pg 27.0-32.0 [facility] Nucleated RBC/100 WBC (Bld) [Ratio] 0 % 0-5 [facility] MCHC Auto (RBC) [Mass/Vol]Or dered By: Renard Burgos on 10-31-2022 MCHC (RBC) [Mass/Vol] 32.7 g/dL 32-36 [facility] Platelets bldOrdered By: Lyubov Burgos on 10-31-2022 Platelets (Bld) [#/Vol] 221 10*3/uL 150-450 [facility] Absolute lymphocyte countOrd ered By: Renard Burgos on 10-24-2022 Lymphocytes Auto (Unsp spec) [#/Vol] 1.96 10*3/uL 0.83-4.51 [facility] Basophil percentageOrdered B y: Renard Burgos on 10-24-2022 Basophils/100 WBC (Bld) 0.4 % 0-1 [facility] Eosinophils/100 WBC (Bld) 0.7 % 0-5 [facility] Neutrophils (Bld) [#/Vol] 4.5 10*3/uL 2.0-7.7 [facility] Neutrophils/100 WBC (Bld) 61.9 % 47-70 [facility] WBC (Bld) [#/Vol] 7.3 10*3/uL 4.4-11.0 [facility] Blood erythrocytes count (nu mber/volume)Ordered By: Renard Burgos on 10-24-2022 RBC (Bld) [#/Vol] 4.41 10*6/uL 4.6-6.2 [facility] Blood hemoglobin measurement (mass/volume)Ordered By: Renard Burgos on 10-24-2022 Hemoglobin (Bld) [Mass/Vol] 13.2 g/dL 13.0-16.5 [facility] Blood lymphocytes/100 leukoc ytesOrdered By: Renard Burgos on 10-24-2022 Lymphocytes/100 WBC (Bld) 27.0 % 19-41 [facility] Blood monocytes/100 leukocyt esOrdered By: Renard Burgos on 10-24-2022 Monocytes/100 WBC (Bld) 9.4 % 0-10 [facility] Blood platelet mean volumeOr dered By: Renard Burgos on 10-24-2022 Platelet mean volume (Bld) [Entitic vol] 10.9 fL 6.2-12.0 [facility] Determination of erythrocyte mean corpuscular volume (MCV)Ordered By: Renard Burgos on 10-24-2022 MCV (RBC) [Entitic vol] 92.1 fL 80-94 [facility] Hematocrit Auto (Bld) [Volum e fraction]Ordered By: Renard Burgos on 10-24-2022 Hematocrit (Bld) [Volume fraction] 40.6 % 40-54 [facility] - Hematology and Cell countsOrdered By: Renard Burgos on 10-24-2022 Erythrocyte distribution width (RBC) [Entitic vol] 42.8 fL 35.1-43.9 [facility] Erythrocyte distribution width (RBC) [Ratio] 12.8 % 11.6-14.6 [facility] Immature granulocytes/100 WBC (Bld) 0.600 % 0.0-0.9 [facility] Comment on above: IG% - Immature Granu locytes (promyelocytes, myelocytes and metamyelocytes) > 1% indicates that a LEFT SHIFT is Present. MCH (RBC) [Entitic mass] 29.9 pg 27.0-32.0 [facility] Nucleated RBC/100 WBC (Bld) [Ratio] 0 % 0-5 [facility] MCHC Auto (RBC) [Mass/Vol]Or dered By: Renard Burgos on 10-24-2022 MCHC (RBC) [Mass/Vol] 32.5 g/dL 32-36 [facility] Platelets bldOrdered By: RUST Loretta on 10-24-2022 Platelets (Bld) [#/Vol] 213 10*3/uL 150-450 [facility] Absolute lymphocyte countOrd ered By: Renard Burgos on 10-17-2022 Lymphocytes Auto (Unsp spec) [#/Vol] 2.05 10*3/uL 0.83-4.51 [facility] Basophil percentageOrdered B y: Renard Burgos on 10-17-2022 Basophils/100 WBC (Bld) 0.4 % 0-1 [facility] Eosinophils/100 WBC (Bld) 0.5 % 0-5 [facility] Neutrophils (Bld) [#/Vol] 6.7 10*3/uL 2.0-7.7 [facility] Neutrophils/100 WBC (Bld) 70.9 % 47-70 [facility] WBC (Bld) [#/Vol] 9.4 10*3/uL 4.4-11.0 [facility] Blood erythrocytes count (nu mber/volume)Ordered By: Renard Burgos on 10-17-2022 RBC (Bld) [#/Vol] 4.33 10*6/uL 4.6-6.2 [facility] Blood hemoglobin measurement (mass/volume)Ordered By: Renard Burgos on 10-17-2022 Hemoglobin (Bld) [Mass/Vol] 13.3 g/dL 13.0-16.5 [facility] Blood lymphocytes/100 leukoc ytesOrdered By: Renard Burgos on 10-17-2022 Lymphocytes/100 WBC (Bld) 21.7 % 19-41 [facility] Blood monocytes/100 leukocyt esOrdered By: Renard Burgos on 10-17-2022 Monocytes/100 WBC (Bld) 6.1 % 0-10 [facility] Blood platelet mean volumeOr dered By: Renard Burgos on 10-17-2022 Platelet mean volume (Bld) [Entitic vol] 10.9 fL 6.2-12.0 [facility] Determination of erythrocyte mean corpuscular volume (MCV)Ordered By: Renard Burgos on 10-17-2022 MCV (RBC) [Entitic vol] 93.8 fL 80-94 [facility] Hematocrit Auto (Bld) [Volum e fraction]Ordered By: Renard Burgos on 10-17-2022 Hematocrit (Bld) [Volume fraction] 40.6 % 40-54 [facility] - Hematology and Cell countsOrdered By: Renard Burgos on 10-17-2022 Erythrocyte distribution width (RBC) [Entitic vol] 42.7 fL 35.1-43.9 [facility] Erythrocyte distribution width (RBC) [Ratio] 12.4 % 11.6-14.6 [facility] Immature granulocytes/100 WBC (Bld) 0.400 % 0.0-0.9 [facility] Comment on above: IG% - Immature Granu locytes (promyelocytes, myelocytes and metamyelocytes) > 1% indicates that a LEFT SHIFT is Present. MCH (RBC) [Entitic mass] 30.7 pg 27.0-32.0 [facility] Nucleated RBC/100 WBC (Bld) [Ratio] 0 % 0-5 [facility] MCHC Auto (RBC) [Mass/Vol]Or dered By: Renard Burgos on 10-17-2022 MCHC (RBC) [Mass/Vol] 32.8 g/dL 32-36 [facility] Platelets bldOrdered By: Lyubov Burgos on 10-17-2022 Platelets (Bld) [#/Vol] 186 10*3/uL 150-450 [facility] Absolute lymphocyte countOrd ered By: Renard Burgos on 10-10-2022 Lymphocytes Auto (Unsp spec) [#/Vol] 2.21 10*3/uL 0.83-4.51 [facility] Basophil percentageOrdered B y: Renard Burgos on 10-10-2022 Basophils/100 WBC (Bld) 0.6 % 0-1 [facility] Eosinophils/100 WBC (Bld) 0.6 % 0-5 [facility] Neutrophils (Bld) [#/Vol] 4.7 10*3/uL 2.0-7.7 [facility] Neutrophils/100 WBC (Bld) 59.6 % 47-70 [facility] WBC (Bld) [#/Vol] 7.9 10*3/uL 4.4-11.0 [facility] Blood erythrocytes count (nu mber/volume)Ordered By: Renard Burgos on 10-10-2022 RBC (Bld) [#/Vol] 4.78 10*6/uL 4.6-6.2 [facility] Blood hemoglobin measurement (mass/volume)Ordered By: Renard Burgos on 10-10-2022 Hemoglobin (Bld) [Mass/Vol] 14.4 g/dL 13.0-16.5 [facility] Blood lymphocytes/100 leukoc ytesOrdered By: Renard Burgos on 10-10-2022 Lymphocytes/100 WBC (Bld) 28.0 % 19-41 [facility] Blood monocytes/100 leukocyt esOrdered By: Renard Burgos on 10-10-2022 Monocytes/100 WBC (Bld) 10.8 % 0-10 [facility] Blood platelet mean volumeOr dered By: Renard Burgos on 10-10-2022 Platelet mean volume (Bld) [Entitic vol] 10.7 fL 6.2-12.0 [facility] Determination of erythrocyte mean corpuscular volume (MCV)Ordered By: Renard Burgos on 10-10-2022 MCV (RBC) [Entitic vol] 94.8 fL 80-94 [facility] Hematocrit Auto (Bld) [Volum e fraction]Ordered By: Renard Burgos on 10-10-2022 Hematocrit (Bld) [Volume fraction] 45.3 % 40-54 [facility] - Hematology and Cell countsOrdered By: Renard Burgos on 10-10-2022 Erythrocyte distribution width (RBC) [Entitic vol] 43.8 fL 35.1-43.9 [facility] Erythrocyte distribution width (RBC) [Ratio] 12.6 % 11.6-14.6 [facility] Immature granulocytes/100 WBC (Bld) 0.400 % 0.0-0.9 [facility] Comment on above: IG% - Immature Granu locytes (promyelocytes, myelocytes and metamyelocytes) > 1% indicates that a LEFT SHIFT is Present. MCH (RBC) [Entitic mass] 30.1 pg 27.0-32.0 [facility] Nucleated RBC/100 WBC (Bld) [Ratio] 0 % 0-5 [facility] ([facility]BC) [Mass/Vol]Or dered By: Renard Burgos on 10-10-2022 MCHC (RBC) [Mass/Vol] 31.8 g/dL 32-36 [facility] Platelets bldOrdered By: Lyubov Burgos on 10-10-2022 Platelets (Bld) [#/Vol] 198 10*3/uL 150-450 [facility] Absolute lymphocyte countOrd ered By: Renard Burgos on 10-03-2022 Lymphocytes Auto (Unsp spec) [#/Vol] 2.00 10*3/uL 0.83-4.51 [facility] Basophil percentageOrdered B y: Renard Burgos on 10-03-2022 Basophils/100 WBC (Bld) 0.6 % 0-1 [facility] Bilirubin [Mass/Vol] 0.30 mg/dL 0.20-1.00 [facility] Comment on above: For patients on eltr ombopag therapy, use of Dimension [place] TBIL is not recommended. Chloride [Moles/Vol] 109 mmol/L 98-107 [facility] Cholesterol [Mass/Vol] 129 mg/dL <200 [facility] Comment on above: <200 mg/dL Desirable 200-240 mg/dL Borderline >240 mg/dL High Risk Eosinophils/100 WBC (Bld) 0.8 % 0-5 [facility] Glucose [Mass/Vol] 82 mg/dL 74-106 [facility] Neutrophils (Bld) [#/Vol] 5.1 10*3/uL 2.0-7.7 [facility] Neutrophils/100 WBC (Bld) 63.2 % 47-70 [facility] Potassium [Moles/Vol] 3.9 mmol/L 3.5-5.1 [facility] Protein [Mass/Vol] 6.1 g/dL 6.4-8.2 [facility] Sodium [Moles/Vol] 140 mmol/L 136-145 [facility] Triglyceride [Mass/Vol] 209 mg/dL <199 [facility] Comment on above: The drugs N-Acetylcy steine and Metamizole may falsely depress this assay.Serum Triglycerides Reference Interval Normal <150 mg/dL Borderline high 150 - 199 mg/dL High 200 - 499 mg/dL Very High > or = 500 mg/dL WBC (Bld) [#/Vol] 8.0 10*3/uL 4.4-11.0 [facility] Blood erythrocytes count (nu mber/volume)Ordered By: Renard Burgos on 10-03-2022 RBC (Bld) [#/Vol] 4.58 10*6/uL 4.6-6.2 [facility] Blood hemoglobin measurement (mass/volume)Ordered By: Renard Burgos on 10-03-2022 Hemoglobin (Bld) [Mass/Vol] 13.9 g/dL 13.0-16.5 [facility] Blood lymphocytes/100 leukoc ytesOrdered By: Renard Burgos on 10-03-2022 Lymphocytes/100 WBC (Bld) 25.1 % 19-41 [facility] Blood monocytes/100 leukocyt esOrdered By: Renard Burgos on 10-03-2022 Monocytes/100 WBC (Bld) 10.0 % 0-10 [facility] Blood platelet mean volumeOr dered By: Renard Burgos on 10-03-2022 Platelet mean volume (Bld) [Entitic vol] 11.1 fL 6.2-12.0 [facility] Determination of erythrocyte mean corpuscular volume (MCV)Ordered By: Renard Burgos on 10-03-2022 MCV (RBC) [Entitic vol] 93.9 fL 80-94 [facility] Hematocrit Auto (Bld) [Volum e fraction]Ordered By: Renard Burgos on 10-03-2022 Hematocrit (Bld) [Volume fraction] 43.0 % 40-54 [facility] - Chemistry and C hemistry - challengeOrdered By: Renard Burgos on 10-03-2022 ALP [Catalytic activity/Vol] 98 U/L 45-117 [facility] ALT [Catalytic activity/Vol] 19 U/L 16-61 [facility] CO2 [Moles/Vol] 31.0 mmol/L 21.0-32.0 [facility] Globulin (S) [Mass/Vol] 3.1 g/dL 2.2-4.2 [facility] Urea nitrogen/Creatinine [Mass ratio] 25.6 mg/mg 10-20 [facility] - Hematology and Cell countsOrdered By: Renard Burgos on 10-03-2022 Erythrocyte distribution width (RBC) [Entitic vol] 43.8 fL 35.1-43.9 [facility] Erythrocyte distribution width (RBC) [Ratio] 12.7 % 11.6-14.6 [facility] Immature granulocytes/100 WBC (Bld) 0.300 % 0.0-0.9 [facility] Comment on above: IG% - Immature Granu locytes (promyelocytes, myelocytes and metamyelocytes) > 1% indicates that a LEFT SHIFT is Present. MCH (RBC) [Entitic mass] 30.3 pg 27.0-32.0 [facility] Nucleated RBC/100 WBC (Bld) [Ratio] 0 % 0-5 [facility] MCHC Auto (RBC) [Mass/Vol]Or dered By: Renard Burgos on 10-03-2022 MCHC (RBC) [Mass/Vol] 32.3 g/dL 32-36 [facility] No Panel InformationOrdered By: Renard Burgos on 10-03-2022 Estimated GFR (MDRD) Amer 165 mL/min >60 [facility] Comment on above: GFR Calc Estimated GFR (MDRD) Non-Af Amer 137 mL/min >60 [facility] Comment on above: Non- GFR Calc Platelets bldOrdered By: Lyubov Burgos on 10-03-2022 Platelets (Bld) [#/Vol] 204 10*3/uL 150-450 [facility] Serum or plasma albumin gordy urement (mass/volume)Ordered By: Renard Burgos on 10-03-2022 Albumin [Mass/Vol] 3.0 g/dL 3.2-5.0 [facility] Serum or plasma albumin/glob ulin mass ratioOrdered By: Renard Burgos on 10-03-2022 Albumin/Globulin [Mass ratio] 1.0 {ratio} 0.9-2.4 [facility] Serum or plasma calcium gordy urement (mass/volume)Ordered By: Renard Burgos on 10-03-2022 Calcium [Mass/Vol] 8.4 mg/dL 8.5-10.1 [facility] Serum or plasma cholesterol in HDL measurement (mass/volume)Ordered By: Renard Burgos on 10-03-2022 Cholesterol in HDL [Mass/Vol] 29 mg/dL >40 [facility] Comment on above: The drugs N-Acetylcy steine and Metamizole may falsely depress this assay. Reference Range HDL <40 mg/dL Low HDL Cholesterol HDL >or= 60 mg/dL High HDL Cholesterol Serum or plasma cholesterol in VLDL measurement (mass/volume)Ordered By: Renard Burgos on 10-03-2022 Cholesterol in VLDL [Mass/Vol] 42 mg/dL 5-40 [facility] Serum or plasma creatinine m easurement (mass/volume)Ordered By: Renard Burgos on 10-03-2022 Creatinine [Mass/Vol] 0.63 mg/dL 0.70-1.30 [facility] Comment on above: The validity of the calculated GFR & GFRAA in patients over 70 years has not been determined. Clinical correlation is essential. Serum or plasma low density lipoprotein (LDL) cholesterol measurement (mass/volume)Ordered By: Renard Burgos on 10-03-2022 Cholesterol in LDL [Mass/Vol] 58 mg/dL 0-130 [facility] Serum or plasma urea nitroge n measurement (mass/volume)Ordered By: Renard Burgos on 10-03-2022 Urea nitrogen [Mass/Vol] 16 mg/dL 7-18 [facility] Thin prep Papanicolaou smear with manual screeningOrdered By: Renard Burgos on 10-03-2022 Thin prep Papanicolaou smear with manual screening 13 U/L 15-37 [facility] Thin prep Papanicolaou smear with manual screening 0 5-15 [facility] Absolute lymphocyte countOrd ered By: Renard Burgos on 09-19-2022 Lymphocytes Auto (Unsp spec) [#/Vol] 1.59 10*3/uL 0.83-4.51 [facility] Basophil percentageOrdered B y: Renard Burgos on 09-19-2022 Basophils/100 WBC (Bld) 0.5 % 0-1 [facility] Eosinophils/100 WBC (Bld) 0.3 % 0-5 [facility] Neutrophils (Bld) [#/Vol] 7.4 10*3/uL 2.0-7.7 [facility] Neutrophils/100 WBC (Bld) 75.0 % 47-70 [facility] WBC (Bld) [#/Vol] 9.9 10*3/uL 4.4-11.0 [facility] Blood erythrocytes count (nu mber/volume)Ordered By: Renard Burgos on 09-19-2022 RBC (Bld) [#/Vol] 4.46 10*6/uL 4.6-6.2 [facility] Blood hemoglobin measurement (mass/volume)Ordered By: Renard Burgos on 09-19-2022 Hemoglobin (Bld) [Mass/Vol] 13.5 g/dL 13.0-16.5 [facility] Blood lymphocytes/100 leukoc ytesOrdered By: Renard Burgos on 09-19-2022 Lymphocytes/100 WBC (Bld) 16.1 % 19-41 [facility] Blood monocytes/100 leukocyt esOrdered By: Renard Burgos on 09-19-2022 Monocytes/100 WBC (Bld) 7.6 % 0-10 [facility] Blood platelet mean volumeOr dered By: Renard Burgos on 09-19-2022 Platelet mean volume (Bld) [Entitic vol] 10.8 fL 6.2-12.0 [facility] Determination of erythrocyte mean corpuscular volume (MCV)Ordered By: Renard Burgos on 09-19-2022 MCV (RBC) [Entitic vol] 92.2 fL 80-94 [facility] Hematocrit Auto (Bld) [Volum e fraction]Ordered By: Renard Burgos on 09-19-2022 Hematocrit (Bld) [Volume fraction] 41.1 % 40-54 [facility] - Hematology and Cell countsOrdered By: Renard Burgos on 09-19-2022 Erythrocyte distribution width (RBC) [Entitic vol] 41.2 fL 35.1-43.9 [facility] Erythrocyte distribution width (RBC) [Ratio] 12.3 % 11.6-14.6 [facility] Immature granulocytes/100 WBC (Bld) 0.500 % 0.0-0.9 [facility] Comment on above: IG% - Immature Granu locytes (promyelocytes, myelocytes and metamyelocytes) > 1% indicates that a LEFT SHIFT is Present. MCH (RBC) [Entitic mass] 30.3 pg 27.0-32.0 [facility] Nucleated RBC/100 WBC (Bld) [Ratio] 0 % 0-5 [facility] MCHC Auto (RBC) [Mass/Vol]Or dered By: Renard Burgos on 09-19-2022 MCHC (RBC) [Mass/Vol] 32.8 g/dL 32-36 [facility] Platelets bldOrdered By: Pet lizy Burgos on 09-19-2022 Platelets (Bld) [#/Vol] 245 10*3/uL 150-450 [facility] Absolute lymphocyte countOrd ered By: Renard Burgos on 09-12-2022 Lymphocytes Auto (Unsp spec) [#/Vol] 2.11 10*3/uL 0.83-4.51 [facility] Basophil percentageOrdered B y: Renard Burgos on 09-12-2022 Basophils/100 WBC (Bld) 0.5 % 0-1 [facility] Eosinophils/100 WBC (Bld) 0.7 % 0-5 [facility] Neutrophils (Bld) [#/Vol] 4.7 10*3/uL 2.0-7.7 [facility] Neutrophils/100 WBC (Bld) 63.6 % 47-70 [facility] WBC (Bld) [#/Vol] 7.3 10*3/uL 4.4-11.0 [facility] Blood erythrocytes count (nu mber/volume)Ordered By: Renard Burgos on 09-12-2022 RBC (Bld) [#/Vol] 4.40 10*6/uL 4.6-6.2 [facility] Blood hemoglobin measurement (mass/volume)Ordered By: Renard Burgos on 09-12-2022 Hemoglobin (Bld) [Mass/Vol] 13.5 g/dL 13.0-16.5 [facility] Blood lymphocytes/100 leukoc ytesOrdered By: Renard Burgos on 09-12-2022 Lymphocytes/100 WBC (Bld) 28.8 % 19-41 [facility] Blood monocytes/100 leukocyt esOrdered By: Renard Burgos on 09-12-2022 Monocytes/100 WBC (Bld) 6.1 % 0-10 [facility] Blood platelet mean volumeOr dered By: Renard Burgos on 09-12-2022 Platelet mean volume (Bld) [Entitic vol] 10.7 fL 6.2-12.0 [facility] Determination of erythrocyte mean corpuscular volume (MCV)Ordered By: Renard Burgos on 09-12-2022 MCV (RBC) [Entitic vol] 91.4 fL 80-94 [facility] Hematocrit Auto (Bld) [Volum e fraction]Ordered By: Renard Burgos on 09-12-2022 Hematocrit (Bld) [Volume fraction] 40.2 % 40-54 [facility] - Hematology and Cell countsOrdered By: Renard Burgos on 09-12-2022 Erythrocyte distribution width (RBC) [Entitic vol] 41.3 fL 35.1-43.9 [facility] Erythrocyte distribution width (RBC) [Ratio] 12.5 % 11.6-14.6 [facility] Immature granulocytes/100 WBC (Bld) 0.300 % 0.0-0.9 [facility] Comment on above: IG% - Immature Granu locytes (promyelocytes, myelocytes and metamyelocytes) > 1% indicates that a LEFT SHIFT is Present. MCH (RBC) [Entitic mass] 30.7 pg 27.0-32.0 [facility] Nucleated RBC/100 WBC (Bld) [Ratio] 0 % 0-5 [facility] MCHC Auto (RBC) [Mass/Vol]Or dered By: Renard Burgos on 09-12-2022 MCHC (RBC) [Mass/Vol] 33.6 g/dL 32-36 [facility] Platelets bldOrdered By: Lyubov Burgos on 09-12-2022 Platelets (Bld) [#/Vol] 197 10*3/uL 150-450 [facility] Absolute lymphocyte countOrd ered By: Renard Burgos on 09-05-2022 Lymphocytes Auto (Unsp spec) [#/Vol] 1.94 10*3/uL 0.83-4.51 [facility] Basophil percentageOrdered B y: Renard Burgos on 09-05-2022 Basophils/100 WBC (Bld) 0.5 % 0-1 [facility] Cholesterol [Mass/Vol] 136 mg/dL <200 [facility] Comment on above: <200 mg/dL Desirable 200-240 mg/dL Borderline >240 mg/dL High Risk Eosinophils/100 WBC (Bld) 0.4 % 0-5 [facility] Neutrophils (Bld) [#/Vol] 5.4 10*3/uL 2.0-7.7 [facility] Neutrophils/100 WBC (Bld) 67.5 % 47-70 [facility] Triglyceride [Mass/Vol] 304 mg/dL <199 [facility] Comment on above: The drugs N-Acetylcy steine and Metamizole may falsely depress this assay.Serum Triglycerides Reference Interval Normal <150 mg/dL Borderline high 150 - 199 mg/dL High 200 - 499 mg/dL Very High > or = 500 mg/dL WBC (Bld) [#/Vol] 7.9 10*3/uL 4.4-11.0 [facility] Blood erythrocytes count (nu mber/volume)Ordered By: Renard Burgos on 09-05-2022 RBC (Bld) [#/Vol] 4.28 10*6/uL 4.6-6.2 [facility] Blood hemoglobin measurement (mass/volume)Ordered By: Renard Burgos on 09-05-2022 Hemoglobin (Bld) [Mass/Vol] 12.9 g/dL 13.0-16.5 [facility] Blood lymphocytes/100 leukoc ytesOrdered By: Renard Burgos on 09-05-2022 Lymphocytes/100 WBC (Bld) 24.5 % 19-41 [facility] Blood monocytes/100 leukocyt esOrdered By: Renard Burgos on 09-05-2022 Monocytes/100 WBC (Bld) 6.6 % 0-10 [facility] Blood platelet mean volumeOr dered By: Renard Burgos on 09-05-2022 Platelet mean volume (Bld) [Entitic vol] 10.7 fL 6.2-12.0 [facility] Determination of erythrocyte mean corpuscular volume (MCV)Ordered By: Renard Burgos on 09-05-2022 MCV (RBC) [Entitic vol] 91.4 fL 80-94 [facility] Hematocrit Auto (Bld) [Volum e fraction]Ordered By: Renard Burgos on 09-05-2022 Hematocrit (Bld) [Volume fraction] 39.1 % 40-54 [facility] Laboratory - Hematology and Cell countsOrdered By: Renard Burgos on 09-05-2022 Erythrocyte distribution width (RBC) [Entitic vol] 41.5 fL 35.1-43.9 [facility] Erythrocyte distribution width (RBC) [Ratio] 12.6 % 11.6-14.6 [facility] Immature granulocytes/100 WBC (Bld) 0.500 % 0.0-0.9 [facility] Comment on above: IG% - Immature Granu locytes (promyelocytes, myelocytes and metamyelocytes) > 1% indicates that a LEFT SHIFT is Present. MCH (RBC) [Entitic mass] 30.1 pg 27.0-32.0 [facility] Nucleated RBC/100 WBC (Bld) [Ratio] 0 % 0-5 [facility] MCHC Auto (RBC) [Mass/Vol]Or dered By: Renard Burgos on 09-05-2022 MCHC (RBC) [Mass/Vol] 33.0 g/dL 32-36 [facility] Platelets bldOrdered By: Lyubov Burgos on 09-05-2022 Platelets (Bld) [#/Vol] 200 10*3/uL 150-450 [facility] Serum or plasma cholesterol in HDL measurement (mass/volume)Ordered By: Renard Burgos on 09-05-2022 Cholesterol in HDL [Mass/Vol] 24 mg/dL >40 [facility] Comment on above: The drugs N-Acetylcy steine and Metamizole may falsely depress this assay. Reference Range HDL <40 mg/dL Low HDL Cholesterol HDL >or= 60 mg/dL High HDL Cholesterol Serum or plasma cholesterol in VLDL measurement (mass/volume)Ordered By: Renard Burgos on 09-05-2022 Cholesterol in VLDL [Mass/Vol] 61 mg/dL 5-40 [facility] Serum or plasma low density lipoprotein (LDL) cholesterol measurement (mass/volume)Ordered By: Renard Burgos on 09-05-2022 Cholesterol in LDL [Mass/Vol] 51 mg/dL 0-130 [facility] Absolute lymphocyte countOrd ered By: Renard Burgos on 08-29-2022 Lymphocytes Auto (Unsp spec) [#/Vol] 1.91 10*3/uL 0.83-4.51 [facility] Basophil percentageOrdered B y: Renard Burgos on 08-29-2022 Basophils/100 WBC (Bld) 0.4 % 0-1 [facility] Eosinophils/100 WBC (Bld) 0.4 % 0-5 [facility] Neutrophils (Bld) [#/Vol] 4.8 10*3/uL 2.0-7.7 [facility] Neutrophils/100 WBC (Bld) 66.0 % 47-70 [facility] WBC (Bld) [#/Vol] 7.3 10*3/uL 4.4-11.0 [facility] Blood erythrocytes count (nu mber/volume)Ordered By: Renard Burgos on 08-29-2022 RBC (Bld) [#/Vol] 4.43 10*6/uL 4.6-6.2 [facility] Blood hemoglobin measurement (mass/volume)Ordered By: Renard Burgos on 08-29-2022 Hemoglobin (Bld) [Mass/Vol] 13.6 g/dL 13.0-16.5 [facility] Blood lymphocytes/100 leukoc ytesOrdered By: Renard Burgos on 08-29-2022 Lymphocytes/100 WBC (Bld) 26.2 % 19-41 [facility] Blood monocytes/100 leukocyt esOrdered By: Renard Burgos on 08-29-2022 Monocytes/100 WBC (Bld) 6.6 % 0-10 [facility] Blood platelet mean volumeOr dered By: Renard Burgos on 08-29-2022 Platelet mean volume (Bld) [Entitic vol] 11.0 fL 6.2-12.0 [facility] Determination of erythrocyte mean corpuscular volume (MCV)Ordered By: Renard Burgos on 08-29-2022 MCV (RBC) [Entitic vol] 92.1 fL 80-94 [facility] Hematocrit Auto (Bld) [Volum e fraction]Ordered By: Renard Burgos on 08-29-2022 Hematocrit (Bld) [Volume fraction] 40.8 % 40-54 [facility] - Hematology and Cell countsOrdered By: Renard Burgos on 08-29-2022 Erythrocyte distribution width (RBC) [Entitic vol] 42.0 fL 35.1-43.9 [facility] Erythrocyte distribution width (RBC) [Ratio] 12.4 % 11.6-14.6 [facility] Immature granulocytes/100 WBC (Bld) 0.400 % 0.0-0.9 [facility] Comment on above: IG% - Immature Granu locytes (promyelocytes, myelocytes and metamyelocytes) > 1% indicates that a LEFT SHIFT is Present. MCH (RBC) [Entitic mass] 30.7 pg 27.0-32.0 [facility] Nucleated RBC/100 WBC (Bld) [Ratio] 0 % 0-5 [facility] MCHC Auto (RBC) [Mass/Vol]Or dered By: Renard Burgos on 08-29-2022 MCHC (RBC) [Mass/Vol] 33.3 g/dL 32-36 [facility] Platelets bldOrdered By: Lyubov Burgos on 08-29-2022 Platelets (Bld) [#/Vol] 195 10*3/uL 150-450 [facility] Absolute lymphocyte countOrd ered By: Renard uBrgos on 08-22-2022 Lymphocytes Auto (Unsp spec) [#/Vol] 1.86 10*3/uL 0.83-4.51 [facility] Basophil percentageOrdered B y: Renard Burgos on 08-22-2022 Basophils/100 WBC (Bld) 0.4 % 0-1 [facility] Eosinophils/100 WBC (Bld) 0.4 % 0-5 [facility] Neutrophils (Bld) [#/Vol] 6.5 10*3/uL 2.0-7.7 [facility] Neutrophils/100 WBC (Bld) 70.5 % 47-70 [facility] WBC (Bld) [#/Vol] 9.3 10*3/uL 4.4-11.0 [facility] Blood erythrocytes count (nu mber/volume)Ordered By: Renard Burgos on 04-24-2023 RBC (Bld) [#/Vol] 4.55 10*6/uL 4.6-6.2 [facility] Blood hemoglobin measurement (mass/volume)Ordered By: Renard Burgos on 08-22-2022 Hemoglobin (Bld) [Mass/Vol] 14.1 g/dL 13.0-16.5 [facility] Blood lymphocytes/100 leukoc ytesOrdered By: Renard Burgos on 08-22-2022 Lymphocytes/100 WBC (Bld) 20.1 % 19-41 [facility] Blood monocytes/100 leukocyt esOrdered By: Renard Burgos on 08-22-2022 Monocytes/100 WBC (Bld) 8.3 % 0-10 [facility] Blood platelet mean volumeOr dered By: Renard Burgos on 08-22-2022 Platelet mean volume (Bld) [Entitic vol] 10.8 fL 6.2-12.0 [facility] Determination of erythrocyte mean corpuscular volume (MCV)Ordered By: Renard Burgos on 08-22-2022 MCV (RBC) [Entitic vol] 91.9 fL 80-94 [facility] Hematocrit Auto (Bld) [Volum e fraction]Ordered By: Renard Burgos on 08-22-2022 Hematocrit (Bld) [Volume fraction] 41.8 % 40-54 [facility] - Hematology and Cell countsOrdered By: Renard Burgos on 08-22-2022 Erythrocyte distribution width (RBC) [Entitic vol] 42.5 fL 35.1-43.9 [facility] Erythrocyte distribution width (RBC) [Ratio] 12.6 % 11.6-14.6 [facility] Immature granulocytes/100 WBC (Bld) 0.300 % 0.0-0.9 [facility] Comment on above: IG% - Immature Granu locytes (promyelocytes, myelocytes and metamyelocytes) > 1% indicates that a LEFT SHIFT is Present. MCH (RBC) [Entitic mass] 31.0 pg 27.0-32.0 [facility] Nucleated RBC/100 WBC (Bld) [Ratio] 0 % 0-5 [facility] MCHC Auto (RBC) [Mass/Vol]Or dered By: Renard Burgos on 08-22-2022 MCHC (RBC) [Mass/Vol] 33.7 g/dL 32-36 [facility] Platelets bldOrdered By: Lyubov lizy Loretta on 08-22-2022 Platelets (Bld) [#/Vol] 197 10*3/uL 150-450 [facility] Absolute lymphocyte countOrd ered By: Renard Burgos on 08-15-2022 Lymphocytes Auto (Unsp spec) [#/Vol] 1.88 10*3/uL 0.83-4.51 [facility] Basophil percentageOrdered B y: Renard Burgos on 08-15-2022 Basophils/100 WBC (Bld) 0.5 % 0-1 [facility] Eosinophils/100 WBC (Bld) 0.5 % 0-5 [facility] Neutrophils (Bld) [#/Vol] 5.1 10*3/uL 2.0-7.7 [facility] Neutrophils/100 WBC (Bld) 65.0 % 47-70 [facility] WBC (Bld) [#/Vol] 7.9 10*3/uL 4.4-11.0 [facility] Blood erythrocytes count (nu mber/volume)Ordered By: Renard Burgos on 08-15-2022 RBC (Bld) [#/Vol] 4.48 10*6/uL 4.6-6.2 [facility] Blood hemoglobin measurement (mass/volume)Ordered By: Renard Burgos on 08-15-2022 Hemoglobin (Bld) [Mass/Vol] 13.7 g/dL 13.0-16.5 [facility] Blood lymphocytes/100 leukoc ytesOrdered By: Renard Burgos on 08-15-2022 Lymphocytes/100 WBC (Bld) 23.9 % 19-41 [facility] Blood monocytes/100 leukocyt esOrdered By: Renard Burgos on 08-15-2022 Monocytes/100 WBC (Bld) 9.8 % 0-10 [facility] Blood platelet mean volumeOr dered By: Renard Burgos on 08-15-2022 Platelet mean volume (Bld) [Entitic vol] 10.7 fL 6.2-12.0 [facility] Determination of erythrocyte mean corpuscular volume (MCV)Ordered By: Renard Burgos on 08-15-2022 MCV (RBC) [Entitic vol] 91.1 fL 80-94 [facility] Hematocrit Auto (Bld) [Volum e fraction]Ordered By: Renard Burgos on 08-15-2022 Hematocrit (Bld) [Volume fraction] 40.8 % 40-54 [facility] - Hematology and Cell countsOrdered By: Renard Burgos on 08-15-2022 Erythrocyte distribution width (RBC) [Entitic vol] 41.0 fL 35.1-43.9 [facility] Erythrocyte distribution width (RBC) [Ratio] 12.4 % 11.6-14.6 [facility] Immature granulocytes/100 WBC (Bld) 0.300 % 0.0-0.9 [facility] Comment on above: IG% - Immature Granu locytes (promyelocytes, myelocytes and metamyelocytes) > 1% indicates that a LEFT SHIFT is Present. MCH (RBC) [Entitic mass] 30.6 pg 27.0-32.0 [facility] Nucleated RBC/100 WBC (Bld) [Ratio] 0 % 0-5 [facility] MCHC Auto (RBC) [Mass/Vol]Or dered By: Renard Burgos on 08-15-2022 MCHC (RBC) [Mass/Vol] 33.6 g/dL 32-36 [facility] Platelets bldOrdered By: Lyubov Burgos on 08-15-2022 Platelets (Bld) [#/Vol] 212 10*3/uL 150-450 [facility] Absolute lymphocyte countOrd ered By: Renard Burgos on 08-08-2022 Lymphocytes Auto (Unsp spec) [#/Vol] 1.96 10*3/uL 0.83-4.51 [facility] Basophil percentageOrdered B y: Renard Burgos on 08-08-2022 Basophils/100 WBC (Bld) 0.5 % 0-1 [facility] Eosinophils/100 WBC (Bld) 0.5 % 0-5 [facility] Neutrophils (Bld) [#/Vol] 4.7 10*3/uL 2.0-7.7 [facility] Neutrophils/100 WBC (Bld) 64.1 % 47-70 [facility] WBC (Bld) [#/Vol] 7.4 10*3/uL 4.4-11.0 [facility] Blood erythrocytes count (nu mber/volume)Ordered By: Renard Burgos on 08-08-2022 RBC (Bld) [#/Vol] 4.44 10*6/uL 4.6-6.2 [facility] Blood hemoglobin measurement (mass/volume)Ordered By: Renard Burgos on 08-08-2022 Hemoglobin (Bld) [Mass/Vol] 13.6 g/dL 13.0-16.5 [facility] Blood lymphocytes/100 leukoc ytesOrdered By: Renard Burgos on 08-08-2022 Lymphocytes/100 WBC (Bld) 26.5 % 19-41 [facility] Blood monocytes/100 leukocyt esOrdered By: Renard Burgos on 08-08-2022 Monocytes/100 WBC (Bld) 8.1 % 0-10 [facility] Blood platelet mean volumeOr dered By: Renard Burgos on 08-08-2022 Platelet mean volume (Bld) [Entitic vol] 10.8 fL 6.2-12.0 [facility] Determination of erythrocyte mean corpuscular volume (MCV)Ordered By: Renard Burgos on 08-08-2022 MCV (RBC) [Entitic vol] 91.7 fL 80-94 [facility] Hematocrit Auto (Bld) [Volum e fraction]Ordered By: Renard Burgos on 08-08-2022 Hematocrit (Bld) [Volume fraction] 40.7 % 40-54 [facility] - Hematology and Cell countsOrdered By: Renard Burgos on 08-08-2022 Erythrocyte distribution width (RBC) [Entitic vol] 42.7 fL 35.1-43.9 [facility] Erythrocyte distribution width (RBC) [Ratio] 12.6 % 11.6-14.6 [facility] Immature granulocytes/100 WBC (Bld) 0.300 % 0.0-0.9 [facility] Comment on above: IG% - Immature Granu locytes (promyelocytes, myelocytes and metamyelocytes) > 1% indicates that a LEFT SHIFT is Present. MCH (RBC) [Entitic mass] 30.6 pg 27.0-32.0 [facility] Nucleated RBC/100 WBC (Bld) [Ratio] 0 % 0-5 [facility] MCHC Auto (RBC) [Mass/Vol]Or dered By: Renard Burgos on 08-08-2022 MCHC (RBC) [Mass/Vol] 33.4 g/dL 32-36 [facility] Platelets bldOrdered By: Lyubov Burgos on 08-08-2022 Platelets (Bld) [#/Vol] 187 10*3/uL 150-450 [facility] Absolute lymphocyte countOrd ered By: Renard Burgos on 08-01-2022 Lymphocytes Auto (Unsp spec) [#/Vol] 2.09 10*3/uL 0.83-4.51 [facility] Basophil percentageOrdered B y: Renard Burgos on 08-01-2022 Basophils/100 WBC (Bld) 0.4 % 0-1 [facility] Eosinophils/100 WBC (Bld) 0.4 % 0-5 [facility] Neutrophils (Bld) [#/Vol] 6.6 10*3/uL 2.0-7.7 [facility] Neutrophils/100 WBC (Bld) 69.1 % 47-70 [facility] WBC (Bld) [#/Vol] 9.5 10*3/uL 4.4-11.0 [facility] Blood erythrocytes count (nu mber/volume)Ordered By: Renard Burgos on 08-01-2022 RBC (Bld) [#/Vol] 4.48 10*6/uL 4.6-6.2 [facility] Blood hemoglobin measurement (mass/volume)Ordered By: Renard Burgos on 08-01-2022 Hemoglobin (Bld) [Mass/Vol] 13.9 g/dL 13.0-16.5 [facility] Blood lymphocytes/100 leukoc ytesOrdered By: Renard Burgos on 08-01-2022 Lymphocytes/100 WBC (Bld) 21.9 % 19-41 [facility] Blood monocytes/100 leukocyt esOrdered By: Renard Burgos on 08-01-2022 Monocytes/100 WBC (Bld) 7.9 % 0-10 [facility] Blood platelet mean volumeOr dered By: Renard Burgos on 08-01-2022 Platelet mean volume (Bld) [Entitic vol] 11.0 fL 6.2-12.0 [facility] Determination of erythrocyte mean corpuscular volume (MCV)Ordered By: Renard Burgos on 08-01-2022 MCV (RBC) [Entitic vol] 91.5 fL 80-94 [facility] Hematocrit Auto (Bld) [Volum e fraction]Ordered By: Renadr Burgos on 08-01-2022 Hematocrit (Bld) [Volume fraction] 41.0 % 40-54 [facility] - Hematology and Cell countsOrdered By: Renard Burgos on 08-01-2022 Erythrocyte distribution width (RBC) [Entitic vol] 41.6 fL 35.1-43.9 [facility] Erythrocyte distribution width (RBC) [Ratio] 12.5 % 11.6-14.6 [facility] Immature granulocytes/100 WBC (Bld) 0.300 % 0.0-0.9 [facility] Comment on above: IG% - Immature Granu locytes (promyelocytes, myelocytes and metamyelocytes) > 1% indicates that a LEFT SHIFT is Present. MCH (RBC) [Entitic mass] 31.0 pg 27.0-32.0 [facility] Nucleated RBC/100 WBC (Bld) [Ratio] 0 % 0-5 [facility] MCHC Auto (RBC) [Mass/Vol]Or dered By: Renard Burgos on 08-01-2022 MCHC (RBC) [Mass/Vol] 33.9 g/dL 32-36 [facility] Platelets bldOrdered By: Lyubov Burgos on 08-01-2022 Platelets (Bld) [#/Vol] 208 10*3/uL 150-450 [facility] Absolute lymphocyte countOrd ered By: Renard Burgos on 07-25-2022 Lymphocytes Auto (Unsp spec) [#/Vol] 2.16 10*3/uL 0.83-4.51 [facility] Basophil percentageOrdered B y: Renard Burgos on 07-25-2022 Basophils/100 WBC (Bld) 0.6 % 0-1 [facility] Eosinophils/100 WBC (Bld) 0.6 % 0-5 [facility] Neutrophils (Bld) [#/Vol] 5.4 10*3/uL 2.0-7.7 [facility] Neutrophils/100 WBC (Bld) 64.5 % 47-70 [facility] WBC (Bld) [#/Vol] 8.4 10*3/uL 4.4-11.0 [facility] Blood erythrocytes count (nu mber/volume)Ordered By: Renard Burgos on 07-25-2022 RBC (Bld) [#/Vol] 4.45 10*6/uL 4.6-6.2 [facility] Blood hemoglobin measurement (mass/volume)Ordered By: Renard Burgos on 07-25-2022 Hemoglobin (Bld) [Mass/Vol] 13.4 g/dL 13.0-16.5 [facility] Blood lymphocytes/100 leukoc ytesOrdered By: Renard Burgos on 07-25-2022 Lymphocytes/100 WBC (Bld) 25.7 % 19-41 [facility] Blood monocytes/100 leukocyt esOrdered By: Renard Burgos on 07-25-2022 Monocytes/100 WBC (Bld) 8.4 % 0-10 [facility] Blood platelet mean volumeOr dered By: Renard Burgos on 07-25-2022 Platelet mean volume (Bld) [Entitic vol] 11.0 fL 6.2-12.0 [facility] Determination of erythrocyte mean corpuscular volume (MCV)Ordered By: Renard Burgos on 07-25-2022 MCV (RBC) [Entitic vol] 92.8 fL 80-94 [facility] Hematocrit Auto (Bld) [Volum e fraction]Ordered By: Renard Burgos on 07-25-2022 Hematocrit (Bld) [Volume fraction] 41.3 % 40-54 [facility] - Hematology and Cell countsOrdered By: Renard Burgos on 07-25-2022 Erythrocyte distribution width (RBC) [Entitic vol] 42.5 fL 35.1-43.9 [facility] Erythrocyte distribution width (RBC) [Ratio] 12.5 % 11.6-14.6 [facility] Immature granulocytes/100 WBC (Bld) 0.200 % 0.0-0.9 [facility] Comment on above: IG% - Immature Granu locytes (promyelocytes, myelocytes and metamyelocytes) > 1% indicates that a LEFT SHIFT is Present. MCH (RBC) [Entitic mass] 30.1 pg 27.0-32.0 [facility] Nucleated RBC/100 WBC (Bld) [Ratio] 0 % 0-5 [facility] MCHC Auto (RBC) [Mass/Vol]Or dered By: Renard Burgos on 07-25-2022 MCHC (RBC) [Mass/Vol] 32.4 g/dL 32-36 [facility] Platelets bldOrdered By: Lyubov Burgos on 07-25-2022 Platelets (Bld) [#/Vol] 200 10*3/uL 150-450 [facility] No Panel InformationOrdered By: Renard Burgos on 07-19-2022 Vitamin D 25-Hydroxy 34.2 ng/mL [facility] Comment on above: Vitamin D 25(OH) Sta tus Range Deficiency <20 ng/mL (50nmol/L) Insufficiency 20 - 30 ng/mL (50 - 75 nmol/L) Sufficiency 30 - 100 ng/mL (75 - 250 nmol/L) Toxicity >100 ng/mL (>250 nmol/L) Absolute lymphocyte countOrd ered By: Renard Burgos on 07-18-2022 Lymphocytes Auto (Unsp spec) [#/Vol] 2.48 10*3/uL 0.83-4.51 [facility] Basophil percentageOrdered B y: Renard Burgos on 07-18-2022 Basophils/100 WBC (Bld) 0.5 % 0-1 [facility] Eosinophils/100 WBC (Bld) 0.6 % 0-5 [facility] Neutrophils (Bld) [#/Vol] 5.9 10*3/uL 2.0-7.7 [facility] Neutrophils/100 WBC (Bld) 61.6 % 47-70 [facility] WBC (Bld) [#/Vol] 9.6 10*3/uL 4.4-11.0 [facility] Blood erythrocytes count (nu mber/volume)Ordered By: Renard Burgos on 03-20-2023 RBC (Bld) [#/Vol] 4.56 10*6/uL 4.6-6.2 [facility] Blood hemoglobin measurement (mass/volume)Ordered By: Renard Burgos on 07-18-2022 Hemoglobin (Bld) [Mass/Vol] 13.9 g/dL 13.0-16.5 [facility] Blood lymphocytes/100 leukoc ytesOrdered By: Renard Burgos on 07-18-2022 Lymphocytes/100 WBC (Bld) 25.9 % 19-41 [facility] Blood monocytes/100 leukocyt esOrdered By: Renard Burgos on 07-18-2022 Monocytes/100 WBC (Bld) 11.0 % 0-10 [facility] Blood platelet mean volumeOr dered By: Renard Burgos on 07-18-2022 Platelet mean volume (Bld) [Entitic vol] 11.3 fL 6.2-12.0 [facility] Determination of erythrocyte mean corpuscular volume (MCV)Ordered By: Renard Burgos on 07-18-2022 MCV (RBC) [Entitic vol] 93.9 fL 80-94 [facility] Hematocrit Auto (Bld) [Volum e fraction]Ordered By: Renard Burgos on 07-18-2022 Hematocrit (Bld) [Volume fraction] 42.8 % 40-54 [facility] - Hematology and Cell countsOrdered By: Renard Burgos on 07-18-2022 Erythrocyte distribution width (RBC) [Entitic vol] 44.0 fL 35.1-43.9 [facility] Erythrocyte distribution width (RBC) [Ratio] 12.8 % 11.6-14.6 [facility] Immature granulocytes/100 WBC (Bld) 0.400 % 0.0-0.9 [facility] Comment on above: IG% - Immature Granu locytes (promyelocytes, myelocytes and metamyelocytes) > 1% indicates that a LEFT SHIFT is Present. MCH (RBC) [Entitic mass] 30.5 pg 27.0-32.0 [facility] Nucleated RBC/100 WBC (Bld) [Ratio] 0 % 0-5 [facility] MCHC Auto (RBC) [Mass/Vol]Or dered By: Renard Burgos on 07-18-2022 MCHC (RBC) [Mass/Vol] 32.5 g/dL 32-36 [facility] Platelets bldOrdered By: Lyubov lizy Loretta on 07-18-2022 Platelets (Bld) [#/Vol] 207 10*3/uL 150-450 [facility] Absolute lymphocyte countOrd ered By: Renard Burgos on 07-11-2022 Lymphocytes Auto (Unsp spec) [#/Vol] 2.37 10*3/uL 0.83-4.51 [facility] Basophil percentageOrdered B y: Renard Burgos on 07-11-2022 Basophils/100 WBC (Bld) 0.6 % 0-1 [facility] Eosinophils/100 WBC (Bld) 0.5 % 0-5 [facility] Neutrophils (Bld) [#/Vol] 5.3 10*3/uL 2.0-7.7 [facility] Neutrophils/100 WBC (Bld) 61.8 % 47-70 [facility] WBC (Bld) [#/Vol] 8.5 10*3/uL 4.4-11.0 [facility] Blood erythrocytes count (nu mber/volume)Ordered By: Renard Burgos on 07-11-2022 RBC (Bld) [#/Vol] 4.83 10*6/uL 4.6-6.2 [facility] Blood hemoglobin measurement (mass/volume)Ordered By: Renard Burgos on 07-11-2022 Hemoglobin (Bld) [Mass/Vol] 14.7 g/dL 13.0-16.5 [facility] Blood lymphocytes/100 leukoc ytesOrdered By: Renard Burgos on 07-11-2022 Lymphocytes/100 WBC (Bld) 27.8 % 19-41 [facility] Blood monocytes/100 leukocyt esOrdered By: Renard Burgos on 07-11-2022 Monocytes/100 WBC (Bld) 8.8 % 0-10 [facility] Blood platelet mean volumeOr dered By: Renard Burgos on 07-11-2022 Platelet mean volume (Bld) [Entitic vol] 10.6 fL 6.2-12.0 [facility] Determination of erythrocyte mean corpuscular volume (MCV)Ordered By: Renard Burgos on 07-11-2022 MCV (RBC) [Entitic vol] 90.7 fL 80-94 [facility] Hematocrit Auto (Bld) [Volum e fraction]Ordered By: Renard Burgos on 07-11-2022 Hematocrit (Bld) [Volume fraction] 43.8 % 40-54 [facility] - Hematology and Cell countsOrdered By: Renard Burgos on 07-11-2022 Erythrocyte distribution width (RBC) [Entitic vol] 41.2 fL 35.1-43.9 [facility] Erythrocyte distribution width (RBC) [Ratio] 12.7 % 11.6-14.6 [facility] Immature granulocytes/100 WBC (Bld) 0.500 % 0.0-0.9 [facility] Comment on above: IG% - Immature Granu locytes (promyelocytes, myelocytes and metamyelocytes) > 1% indicates that a LEFT SHIFT is Present. MCH (RBC) [Entitic mass] 30.4 pg 27.0-32.0 [facility] Nucleated RBC/100 WBC (Bld) [Ratio] 0 % 0-5 [facility] MCHC Auto (RBC) [Mass/Vol]Or dered By: Renard Burgos on 07-11-2022 MCHC (RBC) [Mass/Vol] 33.6 g/dL 32-36 [facility] Platelets bldOrdered By: Lyubov Burgos on 07-11-2022 Platelets (Bld) [#/Vol] 207 10*3/uL 150-450 [facility] Absolute lymphocyte countOrd ered By: Renard Burgos on 07-04-2022 Lymphocytes Auto (Unsp spec) [#/Vol] 1.87 10*3/uL 0.83-4.51 [facility] Basophil percentageOrdered B y: Renard Burgos on 07-04-2022 Basophils/100 WBC (Bld) 0.4 % 0-1 [facility] Eosinophils/100 WBC (Bld) 0.5 % 0-5 [facility] Neutrophils (Bld) [#/Vol] 7.5 10*3/uL 2.0-7.7 [facility] Neutrophils/100 WBC (Bld) 72.8 % 47-70 [facility] WBC (Bld) [#/Vol] 10.3 10*3/uL 4.4-11.0 [facility] Blood erythrocytes count (nu mber/volume)Ordered By: Renard Burgso on 07-04-2022 RBC (Bld) [#/Vol] 4.45 10*6/uL 4.6-6.2 [facility] Blood hemoglobin measurement (mass/volume)Ordered By: Renard Burgos on 07-04-2022 Hemoglobin (Bld) [Mass/Vol] 13.5 g/dL 13.0-16.5 [facility] Blood lymphocytes/100 leukoc ytesOrdered By: Renard Burgos on 07-04-2022 Lymphocytes/100 WBC (Bld) 18.1 % 19-41 [facility] Blood monocytes/100 leukocyt esOrdered By: Renard Burgos on 07-04-2022 Monocytes/100 WBC (Bld) 7.7 % 0-10 [facility] Blood platelet mean volumeOr dered By: Renard Burgos on 07-04-2022 Platelet mean volume (Bld) [Entitic vol] 11.3 fL 6.2-12.0 [facility] Determination of erythrocyte mean corpuscular volume (MCV)Ordered By: Renard Burgos on 07-04-2022 MCV (RBC) [Entitic vol] 93.0 fL 80-94 [facility] Hematocrit Auto (Bld) [Volum e fraction]Ordered By: Renard Burgos on 07-04-2022 Hematocrit (Bld) [Volume fraction] 41.4 % 40-54 [facility] Laboratory - Hematology and Cell countsOrdered By: Renard Burgos on 07-04-2022 Erythrocyte distribution width (RBC) [Entitic vol] 43.0 fL 35.1-43.9 [facility] Erythrocyte distribution width (RBC) [Ratio] 12.5 % 11.6-14.6 [facility] Immature granulocytes/100 WBC (Bld) 0.500 % 0.0-0.9 [facility] Comment on above: IG% - Immature Granu locytes (promyelocytes, myelocytes and metamyelocytes) > 1% indicates that a LEFT SHIFT is Present. MCH (RBC) [Entitic mass] 30.3 pg 27.0-32.0 [facility] Nucleated RBC/100 WBC (Bld) [Ratio] 0 % 0-5 [facility] MCHC Auto (RBC) [Mass/Vol]Or dered By: Renard Burgos on 07-04-2022 MCHC (RBC) [Mass/Vol] 32.6 g/dL 32-36 [facility] Platelets bldOrdered By: Lyubov Burgos on 07-04-2022 Platelets (Bld) [#/Vol] 211 10*3/uL 150-450 [facility] Absolute lymphocyte countOrd ered By: Renard Burgos on 06-27-2022 Lymphocytes Auto (Unsp spec) [#/Vol] 1.83 10*3/uL 0.83-4.51 [facility] Basophil percentageOrdered B y: Renard Burgos on 06-27-2022 Basophils/100 WBC (Bld) 0.4 % 0-1 [facility] Eosinophils/100 WBC (Bld) 0.5 % 0-5 [facility] Neutrophils (Bld) [#/Vol] 5.0 10*3/uL 2.0-7.7 [facility] Neutrophils/100 WBC (Bld) 67.6 % 47-70 [facility] WBC (Bld) [#/Vol] 7.4 10*3/uL 4.4-11.0 [facility] Blood erythrocytes count (nu mber/volume)Ordered By: Renard Burgos on 06-27-2022 RBC (Bld) [#/Vol] 4.52 10*6/uL 4.6-6.2 [facility] Blood hemoglobin measurement (mass/volume)Ordered By: Renard Burgos on 06-27-2022 Hemoglobin (Bld) [Mass/Vol] 13.9 g/dL 13.0-16.5 [facility] Blood lymphocytes/100 leukoc ytesOrdered By: Renard Burgos on 06-27-2022 Lymphocytes/100 WBC (Bld) 24.7 % 19-41 [facility] Blood monocytes/100 leukocyt esOrdered By: Renard Burgos on 06-27-2022 Monocytes/100 WBC (Bld) 6.4 % 0-10 [facility] Blood platelet mean volumeOr dered By: Renard Burgos on 06-27-2022 Platelet mean volume (Bld) [Entitic vol] 10.7 fL 6.2-12.0 [facility] Determination of erythrocyte mean corpuscular volume (MCV)Ordered By: Renard Burgos on 06-27-2022 MCV (RBC) [Entitic vol] 91.2 fL 80-94 [facility] Hematocrit Auto (Bld) [Volum e fraction]Ordered By: Renard Burgos on 06-27-2022 Hematocrit (Bld) [Volume fraction] 41.2 % 40-54 [facility] - Hematology and Cell countsOrdered By: Renard Burgos on 06-27-2022 Erythrocyte distribution width (RBC) [Entitic vol] 41.9 fL 35.1-43.9 [facility] Erythrocyte distribution width (RBC) [Ratio] 12.7 % 11.6-14.6 [facility] Immature granulocytes/100 WBC (Bld) 0.400 % 0.0-0.9 [facility] Comment on above: IG% - Immature Granu locytes (promyelocytes, myelocytes and metamyelocytes) > 1% indicates that a LEFT SHIFT is Present. MCH (RBC) [Entitic mass] 30.8 pg 27.0-32.0 [facility] Nucleated RBC/100 WBC (Bld) [Ratio] 0 % 0-5 [facility] MCHC Auto (RBC) [Mass/Vol]Or dered By: Renard Burgos on 06-27-2022 MCHC (RBC) [Mass/Vol] 33.7 g/dL 32-36 [facility] Platelets bldOrdered By: Lyubov Burgos on 06-27-2022 Platelets (Bld) [#/Vol] 200 10*3/uL 150-450 [facility] Absolute lymphocyte countOrd ered By: Renard Burgos on 06-20-2022 Lymphocytes Auto (Unsp spec) [#/Vol] 1.57 10*3/uL 0.83-4.51 [facility] Basophil percentageOrdered B y: Renard Burgos on 06-20-2022 Basophils/100 WBC (Bld) 0.2 % 0-1 [facility] Eosinophils/100 WBC (Bld) 0.2 % 0-5 [facility] Neutrophils (Bld) [#/Vol] 6.5 10*3/uL 2.0-7.7 [facility] Neutrophils/100 WBC (Bld) 74.5 % 47-70 [facility] WBC (Bld) [#/Vol] 8.8 10*3/uL 4.4-11.0 [facility] Blood erythrocytes count (nu mber/volume)Ordered By: Renard Burgos on 06-20-2022 RBC (Bld) [#/Vol] 4.79 10*6/uL 4.6-6.2 [facility] Blood hemoglobin measurement (mass/volume)Ordered By: Renard Burgos on 06-20-2022 Hemoglobin (Bld) [Mass/Vol] 14.6 g/dL 13.0-16.5 [facility] Blood lymphocytes/100 leukoc ytesOrdered By: Renard Burgos on 06-20-2022 Lymphocytes/100 WBC (Bld) 17.8 % 19-41 [facility] Blood monocytes/100 leukocyt esOrdered By: Renard Burgos on 06-20-2022 Monocytes/100 WBC (Bld) 7.0 % 0-10 [facility] Blood platelet mean volumeOr dered By: Renard Burgos on 06-20-2022 Platelet mean volume (Bld) [Entitic vol] 11.1 fL 6.2-12.0 [facility] Determination of erythrocyte mean corpuscular volume (MCV)Ordered By: Renard Burgos on 06-20-2022 MCV (RBC) [Entitic vol] 92.1 fL 80-94 [facility] Hematocrit Auto (Bld) [Volum e fraction]Ordered By: Renard Burgos on 06-20-2022 Hematocrit (Bld) [Volume fraction] 44.1 % 40-54 [facility] - Hematology and Cell countsOrdered By: Renard Burgos on 06-20-2022 Erythrocyte distribution width (RBC) [Entitic vol] 42.4 fL 35.1-43.9 [facility] Erythrocyte distribution width (RBC) [Ratio] 12.6 % 11.6-14.6 [facility] Immature granulocytes/100 WBC (Bld) 0.300 % 0.0-0.9 [facility] Comment on above: IG% - Immature Granu locytes (promyelocytes, myelocytes and metamyelocytes) > 1% indicates that a LEFT SHIFT is Present. MCH (RBC) [Entitic mass] 30.5 pg 27.0-32.0 [facility] Nucleated RBC/100 WBC (Bld) [Ratio] 0 % 0-5 [facility] MCHC Auto (RBC) [Mass/Vol]Or dered By: Renard Burgos on 06-20-2022 MCHC (RBC) [Mass/Vol] 33.1 g/dL 32-36 [facility] Platelets bldOrdered By: Lyubov Burgos on 06-20-2022 Platelets (Bld) [#/Vol] 207 10*3/uL 150-450 [facility] Absolute lymphocyte countOrd ered By: Renard Burgos on 06-13-2022 Lymphocytes Auto (Unsp spec) [#/Vol] 2.28 10*3/uL 0.83-4.51 [facility] Basophil percentageOrdered B y: Renard Burgos on 06-13-2022 Basophils/100 WBC (Bld) 0.5 % 0-1 [facility] Eosinophils/100 WBC (Bld) 0.4 % 0-5 [facility] Neutrophils (Bld) [#/Vol] 6.0 10*3/uL 2.0-7.7 [facility] Neutrophils/100 WBC (Bld) 65.6 % 47-70 [facility] WBC (Bld) [#/Vol] 9.2 10*3/uL 4.4-11.0 [facility] Blood erythrocytes count (nu mber/volume)Ordered By: Renard Burgos on 06-13-2022 RBC (Bld) [#/Vol] 4.55 10*6/uL 4.6-6.2 [facility] Blood hemoglobin measurement (mass/volume)Ordered By: Renard Burgos on 06-13-2022 Hemoglobin (Bld) [Mass/Vol] 13.7 g/dL 13.0-16.5 [facility] Blood lymphocytes/100 leukoc ytesOrdered By: Renard Burgos on 06-13-2022 Lymphocytes/100 WBC (Bld) 24.9 % 19-41 [facility] Blood monocytes/100 leukocyt esOrdered By: Renard Burgos on 06-13-2022 Monocytes/100 WBC (Bld) 8.2 % 0-10 [facility] Blood platelet mean volumeOr dered By: Renard Burgos on 06-13-2022 Platelet mean volume (Bld) [Entitic vol] 10.9 fL 6.2-12.0 [facility] Determination of erythrocyte mean corpuscular volume (MCV)Ordered By: Renard Burgos on 06-13-2022 MCV (RBC) [Entitic vol] 92.3 fL 80-94 [facility] Hematocrit Auto (Bld) [Volum e fraction]Ordered By: Renard Burgos on 06-13-2022 Hematocrit (Bld) [Volume fraction] 42.0 % 40-54 [facility] - Hematology and Cell countsOrdered By: Renard Burgos on 06-13-2022 Erythrocyte distribution width (RBC) [Entitic vol] 43.2 fL 35.1-43.9 [facility] Erythrocyte distribution width (RBC) [Ratio] 12.8 % 11.6-14.6 [facility] Immature granulocytes/100 WBC (Bld) 0.400 % 0.0-0.9 [facility] Comment on above: IG% - Immature Granu locytes (promyelocytes, myelocytes and metamyelocytes) > 1% indicates that a LEFT SHIFT is Present. MCH (RBC) [Entitic mass] 30.1 pg 27.0-32.0 [facility] Nucleated RBC/100 WBC (Bld) [Ratio] 0 % 0-5 [facility] MCHC Auto (RBC) [Mass/Vol]Or dered By: Renard Burgos on 06-13-2022 MCHC (RBC) [Mass/Vol] 32.6 g/dL 32-36 [facility] Platelets bldOrdered By: Lyubov Burgos on 06-13-2022 Platelets (Bld) [#/Vol] 203 10*3/uL 150-450 [facility] Absolute lymphocyte countOrd ered By: Renard Burgos on 06-06-2022 Lymphocytes Auto (Unsp spec) [#/Vol] 2.02 10*3/uL 0.83-4.51 [facility] Basophil percentageOrdered B y: Renard Burgos on 06-06-2022 Basophils/100 WBC (Bld) 0.5 % 0-1 [facility] Eosinophils/100 WBC (Bld) 0.7 % 0-5 [facility] Neutrophils (Bld) [#/Vol] 4.7 10*3/uL 2.0-7.7 [facility] Neutrophils/100 WBC (Bld) 63.3 % 47-70 [facility] WBC (Bld) [#/Vol] 7.4 10*3/uL 4.4-11.0 [facility] Blood erythrocytes count (nu mber/volume)Ordered By: Renard Burgos on 06-06-2022 RBC (Bld) [#/Vol] 4.57 10*6/uL 4.6-6.2 [facility] Blood hemoglobin measurement (mass/volume)Ordered By: Renard Burgos on 06-06-2022 Hemoglobin (Bld) [Mass/Vol] 14.0 g/dL 13.0-16.5 [facility] Blood lymphocytes/100 leukoc ytesOrdered By: Renard Burgos on 06-06-2022 Lymphocytes/100 WBC (Bld) 27.2 % 19-41 [facility] Blood monocytes/100 leukocyt esOrdered By: Renard Burgos on 06-06-2022 Monocytes/100 WBC (Bld) 7.9 % 0-10 [facility] Blood platelet mean volumeOr dered By: Renard Burgos on 06-06-2022 Platelet mean volume (Bld) [Entitic vol] 10.7 fL 6.2-12.0 [facility] Determination of erythrocyte mean corpuscular volume (MCV)Ordered By: Renard Burgos on 06-06-2022 MCV (RBC) [Entitic vol] 90.2 fL 80-94 [facility] Hematocrit Auto (Bld) [Volum e fraction]Ordered By: Renard Burgos on 06-06-2022 Hematocrit (Bld) [Volume fraction] 41.2 % 40-54 [facility] - Hematology and Cell countsOrdered By: Renard Burgos on 06-06-2022 Erythrocyte distribution width (RBC) [Entitic vol] 41.5 fL 35.1-43.9 [facility] Erythrocyte distribution width (RBC) [Ratio] 12.7 % 11.6-14.6 [facility] Immature granulocytes/100 WBC (Bld) 0.400 % 0.0-0.9 [facility] Comment on above: IG% - Immature Granu locytes (promyelocytes, myelocytes and metamyelocytes) > 1% indicates that a LEFT SHIFT is Present. MCH (RBC) [Entitic mass] 30.6 pg 27.0-32.0 [facility] Nucleated RBC/100 WBC (Bld) [Ratio] 0 % 0-5 [facility] MCHC Auto (RBC) [Mass/Vol]Or dered By: Renard Burgos on 06-06-2022 MCHC (RBC) [Mass/Vol] 34.0 g/dL 32-36 [facility] Platelets bldOrdered By: Lyubov Burgos on 06-06-2022 Platelets (Bld) [#/Vol] 197 10*3/uL 150-450 [facility] Absolute lymphocyte countOrd ered By: Renard Burgos on 05-30-2022 Lymphocytes Auto (Unsp spec) [#/Vol] 2.32 10*3/uL 0.83-4.51 [facility] Basophil percentageOrdered B y: Renard Burgos on 05-30-2022 Basophils/100 WBC (Bld) 0.4 % 0-1 [facility] Eosinophils/100 WBC (Bld) 0.5 % 0-5 [facility] Neutrophils (Bld) [#/Vol] 5.2 10*3/uL 2.0-7.7 [facility] Neutrophils/100 WBC (Bld) 62.6 % 47-70 [facility] WBC (Bld) [#/Vol] 8.3 10*3/uL 4.4-11.0 [facility] Blood erythrocytes count (nu mber/volume)Ordered By: Renard Burgos on 05-30-2022 RBC (Bld) [#/Vol] 4.87 10*6/uL 4.6-6.2 [facility] Blood hemoglobin measurement (mass/volume)Ordered By: Renard Burgos on 05-30-2022 Hemoglobin (Bld) [Mass/Vol] 14.6 g/dL 13.0-16.5 [facility] Blood lymphocytes/100 leukoc ytesOrdered By: Renard Burgos on 05-30-2022 Lymphocytes/100 WBC (Bld) 27.9 % 19-41 [facility] Blood monocytes/100 leukocyt esOrdered By: Renard Burgos on 05-30-2022 Monocytes/100 WBC (Bld) 8.0 % 0-10 [facility] Blood platelet mean volumeOr dered By: Renard Burgos on 05-30-2022 Platelet mean volume (Bld) [Entitic vol] 10.9 fL 6.2-12.0 [facility] Determination of erythrocyte mean corpuscular volume (MCV)Ordered By: Renard Burgos on 05-30-2022 MCV (RBC) [Entitic vol] 91.6 fL 80-94 [facility] Hematocrit Auto (Bld) [Volum e fraction]Ordered By: Renard Burgos on 05-30-2022 Hematocrit (Bld) [Volume fraction] 44.6 % 40-54 [facility] - Hematology and Cell countsOrdered By: Renard Burgos on 05-30-2022 Erythrocyte distribution width (RBC) [Entitic vol] 42.4 fL 35.1-43.9 [facility] Erythrocyte distribution width (RBC) [Ratio] 12.6 % 11.6-14.6 [facility] Immature granulocytes/100 WBC (Bld) 0.600 % 0.0-0.9 [facility] Comment on above: IG% - Immature Granu locytes (promyelocytes, myelocytes and metamyelocytes) > 1% indicates that a LEFT SHIFT is Present. MCH (RBC) [Entitic mass] 30.0 pg 27.0-32.0 [facility] Nucleated RBC/100 WBC (Bld) [Ratio] 0 % 0-5 [facility] MCHC Auto (RBC) [Mass/Vol]Or dered By: Renard Burgos on 05-30-2022 MCHC (RBC) [Mass/Vol] 32.7 g/dL 32-36 [facility] Platelets bldOrdered By: Lyubov Burgos on 01-30-2023 Platelets (Bld) [#/Vol] 213 10*3/uL 150-450 [facility] Absolute lymphocyte countOrd ered By: Renard Burgos on 05-23-2022 Lymphocytes Auto (Unsp spec) [#/Vol] 2.07 10*3/uL 0.83-4.51 [facility] Basophil percentageOrdered B y: Renard Burgos on 05-23-2022 Basophils/100 WBC (Bld) 0.5 % 0-1 [facility] Eosinophils/100 WBC (Bld) 0.4 % 0-5 [facility] Neutrophils (Bld) [#/Vol] 5.7 10*3/uL 2.0-7.7 [facility] Neutrophils/100 WBC (Bld) 66.5 % 47-70 [facility] WBC (Bld) [#/Vol] 8.5 10*3/uL 4.4-11.0 [facility] Blood erythrocytes count (nu mber/volume)Ordered By: Renard Burgos on 05-23-2022 RBC (Bld) [#/Vol] 4.75 10*6/uL 4.6-6.2 [facility] Blood hemoglobin measurement (mass/volume)Ordered By: Renard Burgos on 05-23-2022 Hemoglobin (Bld) [Mass/Vol] 14.3 g/dL 13.0-16.5 [facility] Blood lymphocytes/100 leukoc ytesOrdered By: Renard Burgos on 05-23-2022 Lymphocytes/100 WBC (Bld) 24.4 % 19-41 [facility] Blood monocytes/100 leukocyt esOrdered By: Renard Burgos on 05-23-2022 Monocytes/100 WBC (Bld) 7.7 % 0-10 [facility] Blood platelet mean volumeOr dered By: Renard Burgos on 05-23-2022 Platelet mean volume (Bld) [Entitic vol] 11.1 fL 6.2-12.0 [facility] Determination of erythrocyte mean corpuscular volume (MCV)Ordered By: Renard Burgos on 05-23-2022 MCV (RBC) [Entitic vol] 90.9 fL 80-94 [facility] Hematocrit Auto (Bld) [Volum e fraction]Ordered By: Renard Burgos on 05-23-2022 Hematocrit (Bld) [Volume fraction] 43.2 % 40-54 [facility] - Hematology and Cell countsOrdered By: Renard Burgos on 05-23-2022 Erythrocyte distribution width (RBC) [Entitic vol] 41.7 fL 35.1-43.9 [facility] Erythrocyte distribution width (RBC) [Ratio] 12.5 % 11.6-14.6 [facility] Immature granulocytes/100 WBC (Bld) 0.500 % 0.0-0.9 [facility] Comment on above: IG% - Immature Granu locytes (promyelocytes, myelocytes and metamyelocytes) > 1% indicates that a LEFT SHIFT is Present. MCH (RBC) [Entitic mass] 30.1 pg 27.0-32.0 [facility] Nucleated RBC/100 WBC (Bld) [Ratio] 0 % 0-5 [facility] MCHC Auto (RBC) [Mass/Vol]Or dered By: Renard Burgos on 05-23-2022 MCHC (RBC) [Mass/Vol] 33.1 g/dL 32-36 [facility] Platelets bldOrdered By: Lyubov Burgos on 05-23-2022 Platelets (Bld) [#/Vol] 213 10*3/uL 150-450 [facility] No Panel Informationon 05-20 Dejah Hazel DO 05/20/2022 7:32 PM Feeding Tube Replacement Performed by: Dejah Hazel DO Authorized by: Abelardo Rios DO Consent: Consent obtained: Verbal Consent given by: Patient Warren protocol: Patient identity confirmed: Verbally with patient [...] Procedure completion: Tolerated well, no immediate complications [facility] XR Abdomen Single viewon G-tube position is within the stomach. No evidence of contrast extravasation. Report Dictated on Electronically Signed By: Jason Tran Electronically Signed Date/Time: 05/20/2022 7:38 PM EST [facility] Patient Name: KATHYA HOOPER Exam Date/Time: 05/20/2022 19:18 Procedure: XR ABDOMEN 1 VIEW Ordering Provider: RIOS TYLER Reason For Exam: SUPINE ABDOMEN (KUB) CLINICAL INDICATION: confirm placement of G tube A supine plain film of the abdomen was obtained. Repeat abdominal radiographs following hand injection of enteric contrast via the patient's enteric tube. (Gastrografin 30 mL). COMPARISON: None FINDINGS: On the environmental emergencies assistant image, no dilated bowel loops are identified. Feeding tube overlies the epigastric region of the abdomen. On the postcontrast images, there is a small amount of enteric contrast in the stomach and contrast is present throughout the proximal duodenum. No extravasated contrast is evident. [facility] Jason Tran M D - 05/20/2022 Patient [...] 30 mL). COMPARISON: None FINDINGS: On the environmental emergencies assistant image, no dilated bowel loops are identified. [...] Electronically Signed Date/Time: 05/20/2022 7:38 PM EST [facility] Radiology Study observation (narrative) [facility] XR Abdomen Single viewOrdere d By: Jason Tran on 05-20-2022 [facility] Work Phone: Absolute lymphocyte countOrd ered By: Renard Burgos on 05-16-2022 Lymphocytes Auto (Unsp spec) [#/Vol] 2.06 10*3/uL 0.83-4.51 [facility] Basophil percentageOrdered B y: Renard Burgos on 05-16-2022 Basophils/100 WBC (Bld) 0.6 % 0-1 [facility] Eosinophils/100 WBC (Bld) 0.6 % 0-5 [facility] Neutrophils (Bld) [#/Vol] 4.4 10*3/uL 2.0-7.7 [facility] Neutrophils/100 WBC (Bld) 61.2 % 47-70 [facility] WBC (Bld) [#/Vol] 7.1 10*3/uL 4.4-11.0 [facility] Blood erythrocytes count (nu mber/volume)Ordered By: Renard Burgos on 05-16-2022 RBC (Bld) [#/Vol] 4.58 10*6/uL 4.6-6.2 [facility] Blood hemoglobin measurement (mass/volume)Ordered By: Renard Burgos on 05-16-2022 Hemoglobin (Bld) [Mass/Vol] 13.9 g/dL 13.0-16.5 [facility] Blood lymphocytes/100 leukoc ytesOrdered By: Renard Burgos on 05-16-2022 Lymphocytes/100 WBC (Bld) 29.0 % 19-41 [facility] Blood monocytes/100 leukocyt esOrdered By: Renard Burgos on 05-16-2022 Monocytes/100 WBC (Bld) 8.2 % 0-10 [facility] Blood platelet mean volumeOr dered By: Renard Burgos on 05-16-2022 Platelet mean volume (Bld) [Entitic vol] 11.1 fL 6.2-12.0 [facility] Determination of erythrocyte mean corpuscular volume (MCV)Ordered By: Renard Burgos on 05-16-2022 MCV (RBC) [Entitic vol] 91.5 fL 80-94 [facility] Hematocrit Auto (Bld) [Volum e fraction]Ordered By: Renard Burgos on 05-16-2022 Hematocrit (Bld) [Volume fraction] 41.9 % 40-54 [facility] - Hematology and Cell countsOrdered By: Renard Burgos on 05-16-2022 Erythrocyte distribution width (RBC) [Entitic vol] 41.3 fL 35.1-43.9 [facility] Erythrocyte distribution width (RBC) [Ratio] 12.5 % 11.6-14.6 [facility] Immature granulocytes/100 WBC (Bld) 0.400 % 0.0-0.9 [facility] Comment on above: IG% - Immature Granu locytes (promyelocytes, myelocytes and metamyelocytes) > 1% indicates that a LEFT SHIFT is Present. MCH (RBC) [Entitic mass] 30.3 pg 27.0-32.0 [facility] Nucleated RBC/100 WBC (Bld) [Ratio] 0 % 0-5 [facility] MCHC Auto (RBC) [Mass/Vol]Or dered By: Renard Burgos on 05-16-2022 MCHC (RBC) [Mass/Vol] 33.2 g/dL 32-36 [facility] Platelets bldOrdered By: Lyubov Burgos on 05-16-2022 Platelets (Bld) [#/Vol] 205 10*3/uL 150-450 [facility] Absolute lymphocyte countOrd ered By: Renard Burgos on 05-09-2022 Lymphocytes Auto (Unsp spec) [#/Vol] 1.92 10*3/uL 0.83-4.51 [facility] Basophil percentageOrdered B y: Renard Burgos on 05-09-2022 Basophils/100 WBC (Bld) 0.7 % 0-1 [facility] Eosinophils/100 WBC (Bld) 0.7 % 0-5 [facility] Neutrophils (Bld) [#/Vol] 4.3 10*3/uL 2.0-7.7 [facility] Neutrophils/100 WBC (Bld) 60.9 % 47-70 [facility] WBC (Bld) [#/Vol] 7.1 10*3/uL 4.4-11.0 [facility] Blood erythrocytes count (nu mber/volume)Ordered By: Renard Burgos on 05-09-2022 RBC (Bld) [#/Vol] 4.67 10*6/uL 4.6-6.2 [facility] Blood hemoglobin measurement (mass/volume)Ordered By: Renard Burgos on 05-09-2022 Hemoglobin (Bld) [Mass/Vol] 14.1 g/dL 13.0-16.5 [facility] Blood lymphocytes/100 leukoc ytesOrdered By: Renard Burgos on 05-09-2022 Lymphocytes/100 WBC (Bld) 27.2 % 19-41 [facility] Blood monocytes/100 leukocyt esOrdered By: Renard Burgos on 05-09-2022 Monocytes/100 WBC (Bld) 10.2 % 0-10 [facility] Blood platelet mean volumeOr dered By: Renard Burgos on 05-09-2022 Platelet mean volume (Bld) [Entitic vol] 11.5 fL 6.2-12.0 [facility] Determination of erythrocyte mean corpuscular volume (MCV)Ordered By: Renard Burgos on 05-09-2022 MCV (RBC) [Entitic vol] 91.0 fL 80-94 [facility] Hematocrit Auto (Bld) [Volum e fraction]Ordered By: Renard Burgos on 05-09-2022 Hematocrit (Bld) [Volume fraction] 42.5 % 40-54 [facility] - Hematology and Cell countsOrdered By: Renard Burgos on 05-09-2022 Erythrocyte distribution width (RBC) [Entitic vol] 41.4 fL 35.1-43.9 [facility] Erythrocyte distribution width (RBC) [Ratio] 12.7 % 11.6-14.6 [facility] Immature granulocytes/100 WBC (Bld) 0.300 % 0.0-0.9 [facility] Comment on above: IG% - Immature Granu locytes (promyelocytes, myelocytes and metamyelocytes) > 1% indicates that a LEFT SHIFT is Present. MCH (RBC) [Entitic mass] 30.2 pg 27.0-32.0 [facility] Nucleated RBC/100 WBC (Bld) [Ratio] 0.4 % 0-5 [facility] MCHC Auto (RBC) [Mass/Vol]Or dered By: Renard Burgos on 05-09-2022 MCHC (RBC) [Mass/Vol] 33.2 g/dL 32-36 [facility] Platelets bldOrdered By: Lyubov Burgos on 05-09-2022 Platelets (Bld) [#/Vol] 202 10*3/uL 150-450 [facility] Absolute lymphocyte countOrd ered By: Renard Burgos on 05-03-2022 Lymphocytes Auto (Unsp spec) [#/Vol] 1.86 10*3/uL 0.83-4.51 [facility] Basophil percentageOrdered B y: Renard Burgos on 05-03-2022 Basophils/100 WBC (Bld) 0.3 % 0-1 [facility] Eosinophils/100 WBC (Bld) 0.3 % 0-5 [facility] Neutrophils (Bld) [#/Vol] 6.4 10*3/uL 2.0-7.7 [facility] Neutrophils/100 WBC (Bld) 71.9 % 47-70 [facility] WBC (Bld) [#/Vol] 8.9 10*3/uL 4.4-11.0 [facility] Blood erythrocytes count (nu mber/volume)Ordered By: Renard Burgos on 05-03-2022 RBC (Bld) [#/Vol] 4.65 10*6/uL 4.6-6.2 [facility] Blood hemoglobin measurement (mass/volume)Ordered By: Renard Burgos on 05-03-2022 Hemoglobin (Bld) [Mass/Vol] 14.5 g/dL 13.0-16.5 [facility] Blood lymphocytes/100 leukoc ytesOrdered By: Renard Burgos on 05-03-2022 Lymphocytes/100 WBC (Bld) 20.9 % 19-41 [facility] Blood monocytes/100 leukocyt esOrdered By: Renard Burgos on 05-03-2022 Monocytes/100 WBC (Bld) 6.2 % 0-10 [facility] Blood platelet mean volumeOr dered By: Renard Burgos on 05-03-2022 Platelet mean volume (Bld) [Entitic vol] 11.1 fL 6.2-12.0 [facility] Determination of erythrocyte mean corpuscular volume (MCV)Ordered By: Renard Burgos on 05-03-2022 MCV (RBC) [Entitic vol] 90.1 fL 80-94 [facility] Hematocrit Auto (Bld) [Volum e fraction]Ordered By: Renard Burgos on 05-03-2022 Hematocrit (Bld) [Volume fraction] 41.9 % 40-54 [facility] Laboratory - Hematology and Cell countsOrdered By: Renard Burgos on 05-03-2022 Erythrocyte distribution width (RBC) [Entitic vol] 39.7 fL 35.1-43.9 [facility] Erythrocyte distribution width (RBC) [Ratio] 12.2 % 11.6-14.6 [facility] Immature granulocytes/100 WBC (Bld) 0.400 % 0.0-0.9 [facility] Comment on above: IG% - Immature Granu locytes (promyelocytes, myelocytes and metamyelocytes) > 1% indicates that a LEFT SHIFT is Present. MCH (RBC) [Entitic mass] 31.2 pg 27.0-32.0 [facility] Nucleated RBC/100 WBC (Bld) [Ratio] 0 % 0-5 [facility] MCHC Auto (RBC) [Mass/Vol]Or dered By: Renard Burgos on 05-03-2022 MCHC (RBC) [Mass/Vol] 34.6 g/dL 32-36 [facility] Platelets bldOrdered By: Lyubov Burgos on 05-03-2022 Platelets (Bld) [#/Vol] 203 10*3/uL 150-450 [facility] Absolute lymphocyte countOrd ered By: Renard Burgos on 04-26-2022 Lymphocytes Auto (Unsp spec) [#/Vol] 2.79 10*3/uL 0.83-4.51 [facility] Basophil percentageOrdered B y: Renard Burgos on 04-26-2022 Basophils/100 WBC (Bld) 0.4 % 0-1 [facility] Eosinophils/100 WBC (Bld) 0.4 % 0-5 [facility] Neutrophils (Bld) [#/Vol] 5.9 10*3/uL 2.0-7.7 [facility] Neutrophils/100 WBC (Bld) 60.9 % 47-70 [facility] WBC (Bld) [#/Vol] 9.7 10*3/uL 4.4-11.0 [facility] Blood erythrocytes count (nu mber/volume)Ordered By: Renard Burgos on 04-26-2022 RBC (Bld) [#/Vol] 4.92 10*6/uL 4.6-6.2 [facility] Blood hemoglobin measurement (mass/volume)Ordered By: Renard Burgos on 04-26-2022 Hemoglobin (Bld) [Mass/Vol] 15.2 g/dL 13.0-16.5 [facility] Blood lymphocytes/100 leukoc ytesOrdered By: Renard Burgos on 04-26-2022 Lymphocytes/100 WBC (Bld) 28.9 % 19-41 [facility] Blood monocytes/100 leukocyt esOrdered By: Renard Burgos on 04-26-2022 Monocytes/100 WBC (Bld) 9.0 % 0-10 [facility] Blood platelet mean volumeOr dered By: Renard Burgos on 04-26-2022 Platelet mean volume (Bld) [Entitic vol] 11.0 fL 6.2-12.0 [facility] Determination of erythrocyte mean corpuscular volume (MCV)Ordered By: Renard Burgos on 04-26-2022 MCV (RBC) [Entitic vol] 92.3 fL 80-94 [facility] Hematocrit Auto (Bld) [Volum e fraction]Ordered By: Renard Burgos on 04-26-2022 Hematocrit (Bld) [Volume fraction] 45.4 % 40-54 [facility] - Hematology and Cell countsOrdered By: Renard Burgos on 04-26-2022 Erythrocyte distribution width (RBC) [Entitic vol] 42.1 fL 35.1-43.9 [facility] Erythrocyte distribution width (RBC) [Ratio] 12.5 % 11.6-14.6 [facility] Immature granulocytes/100 WBC (Bld) 0.400 % 0.0-0.9 [facility] Comment on above: IG% - Immature Granu locytes (promyelocytes, myelocytes and metamyelocytes) > 1% indicates that a LEFT SHIFT is Present. MCH (RBC) [Entitic mass] 30.9 pg 27.0-32.0 [facility] Nucleated RBC/100 WBC (Bld) [Ratio] 0 % 0-5 [facility] MCHC Auto (RBC) [Mass/Vol]Or dered By: Renard Burgos on 04-26-2022 MCHC (RBC) [Mass/Vol] 33.5 g/dL 32-36 [facility] Platelets bldOrdered By: Lyubov Burgos on 04-26-2022 Platelets (Bld) [#/Vol] 178 10*3/uL 150-450 [facility] Absolute lymphocyte countOrd ered By: Renard Burgos on 04-18-2022 Lymphocytes Auto (Unsp spec) [#/Vol] 2.03 10*3/uL 0.83-4.51 [facility] Basophil percentageOrdered B y: Renard Burgos on 04-18-2022 Basophils/100 WBC (Bld) 0.6 % 0-1 [facility] Eosinophils/100 WBC (Bld) 0.6 % 0-5 [facility] Neutrophils (Bld) [#/Vol] 4.5 10*3/uL 2.0-7.7 [facility] Neutrophils/100 WBC (Bld) 62.0 % 47-70 [facility] WBC (Bld) [#/Vol] 7.2 10*3/uL 4.4-11.0 [facility] Blood erythrocytes count (nu mber/volume)Ordered By: Renard Burgos on 04-18-2022 RBC (Bld) [#/Vol] 4.67 10*6/uL 4.6-6.2 [facility] Blood hemoglobin measurement (mass/volume)Ordered By: Renard Burgos on 04-18-2022 Hemoglobin (Bld) [Mass/Vol] 14.5 g/dL 13.0-16.5 [facility] Blood lymphocytes/100 leukoc ytesOrdered By: Renard Burgos on 04-18-2022 Lymphocytes/100 WBC (Bld) 28.2 % 19-41 [facility] Blood monocytes/100 leukocyt esOrdered By: Renard Burgos on 04-18-2022 Monocytes/100 WBC (Bld) 8.2 % 0-10 [facility] Blood platelet mean volumeOr dered By: Renard Burgos on 04-18-2022 Platelet mean volume (Bld) [Entitic vol] 11.2 fL 6.2-12.0 [facility] Determination of erythrocyte mean corpuscular volume (MCV)Ordered By: Renard Burgos on 04-18-2022 MCV (RBC) [Entitic vol] 90.8 fL 80-94 [facility] Hematocrit Auto (Bld) [Volum e fraction]Ordered By: Renard Burgos on 04-18-2022 Hematocrit (Bld) [Volume fraction] 42.4 % 40-54 [facility] - Hematology and Cell countsOrdered By: Renard Burgos on 04-18-2022 Erythrocyte distribution width (RBC) [Entitic vol] 41.1 fL 35.1-43.9 [facility] Erythrocyte distribution width (RBC) [Ratio] 12.5 % 11.6-14.6 [facility] Immature granulocytes/100 WBC (Bld) 0.400 % 0.0-0.9 [facility] Comment on above: IG% - Immature Granu locytes (promyelocytes, myelocytes and metamyelocytes) > 1% indicates that a LEFT SHIFT is Present. MCH (RBC) [Entitic mass] 31.0 pg 27.0-32.0 [facility] Nucleated RBC/100 WBC (Bld) [Ratio] 0 % 0-5 [facility] MCHC Auto (RBC) [Mass/Vol]Or dered By: Renard Burgos on 04-18-2022 MCHC (RBC) [Mass/Vol] 34.2 g/dL 32-36 [facility] Platelets bldOrdered By: Lyubov Burgos on 04-18-2022 Platelets (Bld) [#/Vol] 196 10*3/uL 150-450 [facility] Basophil percentageOrdered B y: Renard Burgos on 04-14-2022 Bilirubin [Mass/Vol] 0.40 mg/dL 0.20-1.00 [facility] Comment on above: For patients on eltr ombopag therapy, use of Dimension [place] TBIL is not recommended. Protein [Mass/Vol] 6.3 g/dL 6.4-8.2 [facility] Direct bilirubinOrdered By: Renard Burgos on 04-14-2022 Bilirubin.direct [Mass/Vol] 0.12 mg/dL 0.00-0.30 [facility] - Chemistry and C hemistry - challengeOrdered By: Renard Burgos on 04-14-2022 ALP [Catalytic activity/Vol] 117 U/L 45-117 [facility] ALT [Catalytic activity/Vol] 26 U/L 16-61 [facility] Globulin (S) [Mass/Vol] 3.2 g/dL 2.2-4.2 [facility] Serum or plasma albumin gordy urement (mass/volume)Ordered By: Renard Burgos on 04-14-2022 Albumin [Mass/Vol] 3.1 g/dL 3.2-5.0 [facility] Thin prep Papanicolaou smear with manual screeningOrdered By: Renard Burgos on 04-14-2022 Thin prep Papanicolaou smear with manual screening 12 U/L 15-37 [facility] Absolute lymphocyte countOrd ered By: Renard Burgos on 04-11-2022 Lymphocytes Auto (Unsp spec) [#/Vol] 2.16 10*3/uL 0.83-4.51 [facility] Basophil percentageOrdered B y: Renard Burgos on 04-11-2022 Basophils/100 WBC (Bld) 0.4 % 0-1 [facility] Eosinophils/100 WBC (Bld) 0.4 % 0-5 [facility] Neutrophils (Bld) [#/Vol] 4.2 10*3/uL 2.0-7.7 [facility] Neutrophils/100 WBC (Bld) 61.1 % 47-70 [facility] WBC (Bld) [#/Vol] 6.9 10*3/uL 4.4-11.0 [facility] Blood erythrocytes count (nu mber/volume)Ordered By: Renard Burgos on 04-11-2022 RBC (Bld) [#/Vol] 4.58 10*6/uL 4.6-6.2 [facility] Blood hemoglobin measurement (mass/volume)Ordered By: Renard Burgos on 04-11-2022 Hemoglobin (Bld) [Mass/Vol] 13.9 g/dL 13.0-16.5 [facility] Blood lymphocytes/100 leukoc ytesOrdered By: Renard Burgos on 04-11-2022 Lymphocytes/100 WBC (Bld) 31.2 % 19-41 [facility] Blood monocytes/100 leukocyt esOrdered By: Renard Burgos on 04-11-2022 Monocytes/100 WBC (Bld) 6.5 % 0-10 [facility] Blood platelet mean volumeOr dered By: Renard Burgos on 04-11-2022 Platelet mean volume (Bld) [Entitic vol] 11.4 fL 6.2-12.0 [facility] Determination of erythrocyte mean corpuscular volume (MCV)Ordered By: Renard Burgos on 04-11-2022 MCV (RBC) [Entitic vol] 91.9 fL 80-94 [facility] Hematocrit Auto (Bld) [Volum e fraction]Ordered By: Renard Burgos on 04-11-2022 Hematocrit (Bld) [Volume fraction] 42.1 % 40-54 [facility] - Hematology and Cell countsOrdered By: Renard Burgos on 04-11-2022 Erythrocyte distribution width (RBC) [Entitic vol] 41.5 fL 35.1-43.9 [facility] Erythrocyte distribution width (RBC) [Ratio] 12.3 % 11.6-14.6 [facility] Immature granulocytes/100 WBC (Bld) 0.400 % 0.0-0.9 [facility] Comment on above: IG% - Immature Granu locytes (promyelocytes, myelocytes and metamyelocytes) > 1% indicates that a LEFT SHIFT is Present. MCH (RBC) [Entitic mass] 30.3 pg 27.0-32.0 [facility] Nucleated RBC/100 WBC (Bld) [Ratio] 0 % 0-5 [facility] MCHC Auto (RBC) [Mass/Vol]Or dered By: Renard Burgos on 04-11-2022 MCHC (RBC) [Mass/Vol] 33.0 g/dL 32-36 [facility] Platelets bldOrdered By: Lyubov Burgos on 04-11-2022 Platelets (Bld) [#/Vol] 191 10*3/uL 150-450 [facility] Absolute lymphocyte countOrd ered By: Renard Burgos on 04-04-2022 Lymphocytes Auto (Unsp spec) [#/Vol] 1.99 10*3/uL 0.83-4.51 [facility] Basophil percentageOrdered B y: Renard Burgos on 04-04-2022 Basophils/100 WBC (Bld) 0.4 % 0-1 [facility] Cholesterol [Mass/Vol] 158 mg/dL <200 [facility] Comment on above: <200 mg/dL Desirable 200-240 mg/dL Borderline >240 mg/dL High Risk Eosinophils/100 WBC (Bld) 0.4 % 0-5 [facility] Neutrophils (Bld) [#/Vol] 4.9 10*3/uL 2.0-7.7 [facility] Neutrophils/100 WBC (Bld) 64.2 % 47-70 [facility] Triglyceride [Mass/Vol] 259 mg/dL <199 [facility] Comment on above: The drugs N-Acetylcy steine and Metamizole may falsely depress this assay.Serum Triglycerides Reference Interval Normal <150 mg/dL Borderline high 150 - 199 mg/dL High 200 - 499 mg/dL Very High > or = 500 mg/dL WBC (Bld) [#/Vol] 7.7 10*3/uL 4.4-11.0 [facility] Blood erythrocytes count (nu mber/volume)Ordered By: Renard Burgos on 04-04-2022 RBC (Bld) [#/Vol] 4.63 10*6/uL 4.6-6.2 [facility] Blood hemoglobin measurement (mass/volume)Ordered By: Renard Burgos on 04-04-2022 Hemoglobin (Bld) [Mass/Vol] 14.1 g/dL 13.0-16.5 [facility] Blood lymphocytes/100 leukoc ytesOrdered By: Renard Burgos on 04-04-2022 Lymphocytes/100 WBC (Bld) 25.9 % 19-41 [facility] Blood monocytes/100 leukocyt esOrdered By: Renard Burgos on 04-04-2022 Monocytes/100 WBC (Bld) 8.6 % 0-10 [facility] Blood platelet mean volumeOr dered By: Renard Burgos on 04-04-2022 Platelet mean volume (Bld) [Entitic vol] 11.3 fL 6.2-12.0 [facility] Determination of erythrocyte mean corpuscular volume (MCV)Ordered By: Renard Burgos on 04-04-2022 MCV (RBC) [Entitic vol] 90.7 fL 80-94 [facility] Hematocrit Auto (Bld) [Volum e fraction]Ordered By: Renard Burgos on 04-04-2022 Hematocrit (Bld) [Volume fraction] 42.0 % 40-54 [facility] - Hematology and Cell countsOrdered By: Renard Burgos on 04-04-2022 Erythrocyte distribution width (RBC) [Entitic vol] 41.3 fL 35.1-43.9 [facility] Erythrocyte distribution width (RBC) [Ratio] 12.4 % 11.6-14.6 [facility] Immature granulocytes/100 WBC (Bld) 0.500 % 0.0-0.9 [facility] Comment on above: IG% - Immature Granu locytes (promyelocytes, myelocytes and metamyelocytes) > 1% indicates that a LEFT SHIFT is Present. MCH (RBC) [Entitic mass] 30.5 pg 27.0-32.0 [facility] Nucleated RBC/100 WBC (Bld) [Ratio] 0 % 0-5 [facility] MCHC Auto (RBC) [Mass/Vol]Or dered By: Renard Burgos on 04-04-2022 MCHC (RBC) [Mass/Vol] 33.6 g/dL 32-36 [facility] Platelets bldOrdered By: Lyubov Burgos on 04-04-2022 Platelets (Bld) [#/Vol] 174 10*3/uL 150-450 [facility] Serum or plasma cholesterol in HDL measurement (mass/volume)Ordered By: Renard Burgos on 04-04-2022 Cholesterol in HDL [Mass/Vol] 26 mg/dL >40 [facility] Comment on above: The drugs N-Acetylcy steine and Metamizole may falsely depress this assay. Reference Range HDL <40 mg/dL Low HDL Cholesterol HDL >or= 60 mg/dL High HDL Cholesterol Serum or plasma cholesterol in VLDL measurement (mass/volume)Ordered By: Renard Burgos on 04-04-2022 Cholesterol in VLDL [Mass/Vol] 52 mg/dL 5-40 [facility] Serum or plasma low density lipoprotein (LDL) cholesterol measurement (mass/volume)Ordered By: Renard Burgos on 04-04-2022 Cholesterol in LDL [Mass/Vol] 80 mg/dL 0-130 [facility] Absolute lymphocyte countOrd ered By: Renard Burgos on 03-28-2022 Lymphocytes Auto (Unsp spec) [#/Vol] 2.25 10*3/uL 0.83-4.51 [facility] Basophil percentageOrdered B y: Renard Burgos on 03-28-2022 Basophils/100 WBC (Bld) 0.6 % 0-1 [facility] Eosinophils/100 WBC (Bld) 0.5 % 0-5 [facility] Neutrophils (Bld) [#/Vol] 4.8 10*3/uL 2.0-7.7 [facility] Neutrophils/100 WBC (Bld) 60.5 % 47-70 [facility] WBC (Bld) [#/Vol] 8.0 10*3/uL 4.4-11.0 [facility] Blood erythrocytes count (nu mber/volume)Ordered By: Renard Burgos on 03-28-2022 RBC (Bld) [#/Vol] 4.69 10*6/uL 4.6-6.2 [facility] Blood hemoglobin measurement (mass/volume)Ordered By: Renard Burgos on 03-28-2022 Hemoglobin (Bld) [Mass/Vol] 14.4 g/dL 13.0-16.5 [facility] Blood lymphocytes/100 leukoc ytesOrdered By: Renard Burgos on 03-28-2022 Lymphocytes/100 WBC (Bld) 28.1 % 19-41 [facility] Blood monocytes/100 leukocyt esOrdered By: Renard Burgos on 03-28-2022 Monocytes/100 WBC (Bld) 9.8 % 0-10 [facility] Blood platelet mean volumeOr dered By: Renard Burgos on 03-28-2022 Platelet mean volume (Bld) [Entitic vol] 10.8 fL 6.2-12.0 [facility] Determination of erythrocyte mean corpuscular volume (MCV)Ordered By: Renard Burgos on 03-28-2022 MCV (RBC) [Entitic vol] 92.1 fL 80-94 [facility] Hematocrit Auto (Bld) [Volum e fraction]Ordered By: Renard Burgos on 03-28-2022 Hematocrit (Bld) [Volume fraction] 43.2 % 40-54 [facility] - Hematology and Cell countsOrdered By: Renard Burgos on 03-28-2022 Erythrocyte distribution width (RBC) [Entitic vol] 42.0 fL 35.1-43.9 [facility] Erythrocyte distribution width (RBC) [Ratio] 12.5 % 11.6-14.6 [facility] Immature granulocytes/100 WBC (Bld) 0.500 % 0.0-0.9 [facility] Comment on above: IG% - Immature Granu locytes (promyelocytes, myelocytes and metamyelocytes) > 1% indicates that a LEFT SHIFT is Present. MCH (RBC) [Entitic mass] 30.7 pg 27.0-32.0 [facility] Nucleated RBC/100 WBC (Bld) [Ratio] 0 % 0-5 [facility] MCHC Auto (RBC) [Mass/Vol]Or dered By: Renard Burgos on 03-28-2022 MCHC (RBC) [Mass/Vol] 33.3 g/dL 32-36 [facility] Platelets bldOrdered By: Lyubov Burgos on 03-28-2022 Platelets (Bld) [#/Vol] 207 10*3/uL 150-450 [facility] Absolute lymphocyte countOrd ered By: Renard Burgos on 03-21-2022 Lymphocytes Auto (Unsp spec) [#/Vol] 1.98 10*3/uL 0.83-4.51 [facility] Basophil percentageOrdered B y: Renard Burgos on 03-21-2022 Basophils/100 WBC (Bld) 0.5 % 0-1 [facility] Eosinophils/100 WBC (Bld) 0.5 % 0-5 [facility] Neutrophils (Bld) [#/Vol] 4.9 10*3/uL 2.0-7.7 [facility] Neutrophils/100 WBC (Bld) 63.6 % 47-70 [facility] WBC (Bld) [#/Vol] 7.7 10*3/uL 4.4-11.0 [facility] Blood erythrocytes count (nu mber/volume)Ordered By: Renard Burgos on 03-21-2022 RBC (Bld) [#/Vol] 4.82 10*6/uL 4.6-6.2 [facility] Blood hemoglobin measurement (mass/volume)Ordered By: Renard Burgos on 03-21-2022 Hemoglobin (Bld) [Mass/Vol] 14.9 g/dL 13.0-16.5 [facility] Blood lymphocytes/100 leukoc ytesOrdered By: Renard Burgos on 03-21-2022 Lymphocytes/100 WBC (Bld) 25.7 % 19-41 [facility] Blood monocytes/100 leukocyt esOrdered By: Renard Burgos on 03-21-2022 Monocytes/100 WBC (Bld) 9.3 % 0-10 [facility] Blood platelet mean volumeOr dered By: Renard Burgos on 03-21-2022 Platelet mean volume (Bld) [Entitic vol] 10.8 fL 6.2-12.0 [facility] Determination of erythrocyte mean corpuscular volume (MCV)Ordered By: Renard Burgos on 03-21-2022 MCV (RBC) [Entitic vol] 90.7 fL 80-94 [facility] Hematocrit Auto (Bld) [Volum e fraction]Ordered By: Renard Burgos on 03-21-2022 Hematocrit (Bld) [Volume fraction] 43.7 % 40-54 [facility] - Hematology and Cell countsOrdered By: Renard Burgos on 03-21-2022 Erythrocyte distribution width (RBC) [Entitic vol] 40.8 fL 35.1-43.9 [facility] Erythrocyte distribution width (RBC) [Ratio] 12.4 % 11.6-14.6 [facility] Immature granulocytes/100 WBC (Bld) 0.400 % 0.0-0.9 [facility] Comment on above: IG% - Immature Granu locytes (promyelocytes, myelocytes and metamyelocytes) > 1% indicates that a LEFT SHIFT is Present. MCH (RBC) [Entitic mass] 30.9 pg 27.0-32.0 [facility] Nucleated RBC/100 WBC (Bld) [Ratio] 0 % 0-5 [facility] MCHC Auto (RBC) [Mass/Vol]Or dered By: Renard Burgos on 03-21-2022 MCHC (RBC) [Mass/Vol] 34.1 g/dL 32-36 [facility] Platelets bldOrdered By: Lyubov Burgos on 03-21-2022 Platelets (Bld) [#/Vol] 186 10*3/uL 150-450 [facility] Absolute lymphocyte countOrd ered By: Renard Burgos on 03-14-2022 Lymphocytes Auto (Unsp spec) [#/Vol] 2.18 10*3/uL 0.83-4.51 [facility] Basophil percentageOrdered B y: Renard Burgos on 03-14-2022 Basophils/100 WBC (Bld) 0.4 % 0-1 [facility] Eosinophils/100 WBC (Bld) 0.6 % 0-5 [facility] Neutrophils (Bld) [#/Vol] 4.3 10*3/uL 2.0-7.7 [facility] Neutrophils/100 WBC (Bld) 58.8 % 47-70 [facility] WBC (Bld) [#/Vol] 7.3 10*3/uL 4.4-11.0 [facility] Blood erythrocytes count (nu mber/volume)Ordered By: Renard Burgos on 03-14-2022 RBC (Bld) [#/Vol] 4.80 10*6/uL 4.6-6.2 [facility] Blood hemoglobin measurement (mass/volume)Ordered By: Renard Burgos on 03-14-2022 Hemoglobin (Bld) [Mass/Vol] 14.5 g/dL 13.0-16.5 [facility] Blood lymphocytes/100 leukoc ytesOrdered By: Renard Burgos on 03-14-2022 Lymphocytes/100 WBC (Bld) 30.1 % 19-41 [facility] Blood monocytes/100 leukocyt esOrdered By: Renard Burgos on 03-14-2022 Monocytes/100 WBC (Bld) 9.5 % 0-10 [facility] Blood platelet mean volumeOr dered By: Renard Burgos on 03-14-2022 Platelet mean volume (Bld) [Entitic vol] 11.0 fL 6.2-12.0 [facility] Determination of erythrocyte mean corpuscular volume (MCV)Ordered By: Renard Burgos on 03-14-2022 MCV (RBC) [Entitic vol] 91.5 fL 80-94 [facility] Hematocrit Auto (Bld) [Volum e fraction]Ordered By: Renard Burgos on 03-14-2022 Hematocrit (Bld) [Volume fraction] 43.9 % 40-54 [facility] - Hematology and Cell countsOrdered By: Renard Burgos on 03-14-2022 Erythrocyte distribution width (RBC) [Entitic vol] 41.1 fL 35.1-43.9 [facility] Erythrocyte distribution width (RBC) [Ratio] 12.4 % 11.6-14.6 [facility] Immature granulocytes/100 WBC (Bld) 0.600 % 0.0-0.9 [facility] Comment on above: IG% - Immature Granu locytes (promyelocytes, myelocytes and metamyelocytes) > 1% indicates that a LEFT SHIFT is Present. MCH (RBC) [Entitic mass] 30.2 pg 27.0-32.0 [facility] Nucleated RBC/100 WBC (Bld) [Ratio] 0 % 0-5 [facility] MCHC Auto (RBC) [Mass/Vol]Or dered By: Renard Burgos on 03-14-2022 MCHC (RBC) [Mass/Vol] 33.0 g/dL 32-36 [facility] Platelets bldOrdered By: Lyubov Burgos on 03-14-2022 Platelets (Bld) [#/Vol] 201 10*3/uL 150-450 [facility] Absolute lymphocyte countOrd ered By: Renard Burgos on 2022 Lymphocytes Auto (Unsp spec) [#/Vol] 1.97 10*3/uL 0.83-4.51 [facility] Basophil percentageOrdered B y: Renard Burgos on 2022 Basophils/100 WBC (Bld) 0.6 % 0-1 [facility] Eosinophils/100 WBC (Bld) 0.4 % 0-5 [facility] Neutrophils (Bld) [#/Vol] 4.3 10*3/uL 2.0-7.7 [facility] Neutrophils/100 WBC (Bld) 61.3 % 47-70 [facility] WBC (Bld) [#/Vol] 7.0 10*3/uL 4.4-11.0 [facility] Blood erythrocytes count (nu mber/volume)Ordered By: Renard Burgos on 2022 RBC (Bld) [#/Vol] 4.78 10*6/uL 4.6-6.2 [facility] Blood hemoglobin measurement (mass/volume)Ordered By: Renard Burgos on 2022 Hemoglobin (Bld) [Mass/Vol] 14.4 g/dL 13.0-16.5 [facility] Blood lymphocytes/100 leukoc ytesOrdered By: Renard Burgos on 2022 Lymphocytes/100 WBC (Bld) 28.3 % 19-41 [facility] Blood monocytes/100 leukocyt esOrdered By: Renard Burgos on 2022 Monocytes/100 WBC (Bld) 9.1 % 0-10 [facility] Blood platelet mean volumeOr dered By: Renard Burgos on 2022 Platelet mean volume (Bld) [Entitic vol] 11.1 fL 6.2-12.0 [facility] Determination of erythrocyte mean corpuscular volume (MCV)Ordered By: Renard Burgos on 2022 MCV (RBC) [Entitic vol] 91.2 fL 80-94 [facility] Hematocrit Auto (Bld) [Volum e fraction]Ordered By: Renard Burgos on 2022 Hematocrit (Bld) [Volume fraction] 43.6 % 40-54 [facility] - Hematology and Cell countsOrdered By: Renard Burgos on 2022 Erythrocyte distribution width (RBC) [Entitic vol] 42.0 fL 35.1-43.9 [facility] Erythrocyte distribution width (RBC) [Ratio] 12.6 % 11.6-14.6 [facility] Immature granulocytes/100 WBC (Bld) 0.300 % 0.0-0.9 [facility] Comment on above: IG% - Immature Granu locytes (promyelocytes, myelocytes and metamyelocytes) > 1% indicates that a LEFT SHIFT is Present. MCH (RBC) [Entitic mass] 30.1 pg 27.0-32.0 [facility] Nucleated RBC/100 WBC (Bld) [Ratio] 0 % 0-5 [facility] MCHC Auto (RBC) [Mass/Vol]Or dered By: Renard Burgos on 2022 MCHC (RBC) [Mass/Vol] 33.0 g/dL 32-36 [facility] Platelets bldOrdered By: Lyubov Burgos on 2022 Platelets (Bld) [#/Vol] 210 10*3/uL 150-450 [facility] Absolute lymphocyte countOrd ered By: Renard Burgos on 02-28-2022 Lymphocytes Auto (Unsp spec) [#/Vol] 1.85 10*3/uL 0.83-4.51 [facility] Basophil percentageOrdered B y: Renard Burgos on 02-28-2022 Basophils/100 WBC (Bld) 0.4 % 0-1 [facility] Eosinophils/100 WBC (Bld) 0.4 % 0-5 [facility] Neutrophils (Bld) [#/Vol] 5.3 10*3/uL 2.0-7.7 [facility] Neutrophils/100 WBC (Bld) 67.8 % 47-70 [facility] WBC (Bld) [#/Vol] 7.8 10*3/uL 4.4-11.0 [facility] Blood erythrocytes count (nu mber/volume)Ordered By: Renard Burgos on 02-28-2022 RBC (Bld) [#/Vol] 4.58 10*6/uL 4.6-6.2 [facility] Blood hemoglobin measurement (mass/volume)Ordered By: Renard Burgos on 02-28-2022 Hemoglobin (Bld) [Mass/Vol] 14.3 g/dL 13.0-16.5 [facility] Blood lymphocytes/100 leukoc ytesOrdered By: Renard Burgos on 02-28-2022 Lymphocytes/100 WBC (Bld) 23.8 % 19-41 [facility] Blood monocytes/100 leukocyt esOrdered By: Renard Burgos on 02-28-2022 Monocytes/100 WBC (Bld) 7.2 % 0-10 [facility] Blood platelet mean volumeOr dered By: Renard Burgos on 02-28-2022 Platelet mean volume (Bld) [Entitic vol] 10.8 fL 6.2-12.0 [facility] Determination of erythrocyte mean corpuscular volume (MCV)Ordered By: Renard Burgos on 02-28-2022 MCV (RBC) [Entitic vol] 91.5 fL 80-94 [facility] Hematocrit Auto (Bld) [Volum e fraction]Ordered By: Renard Burgos on 02-28-2022 Hematocrit (Bld) [Volume fraction] 41.9 % 40-54 [facility] - Hematology and Cell countsOrdered By: Renard Burgos on 02-28-2022 Erythrocyte distribution width (RBC) [Entitic vol] 42.2 fL 35.1-43.9 [facility] Erythrocyte distribution width (RBC) [Ratio] 12.7 % 11.6-14.6 [facility] Immature granulocytes/100 WBC (Bld) 0.400 % 0.0-0.9 [facility] Comment on above: IG% - Immature Granu locytes (promyelocytes, myelocytes and metamyelocytes) > 1% indicates that a LEFT SHIFT is Present. MCH (RBC) [Entitic mass] 31.2 pg 27.0-32.0 [facility] Nucleated RBC/100 WBC (Bld) [Ratio] 0 % 0-5 [facility] MCHC Auto (RBC) [Mass/Vol]Or dered By: Renard Burgos on 02-28-2022 MCHC (RBC) [Mass/Vol] 34.1 g/dL 32-36 [facility] Platelets bldOrdered By: Lyubov Burgos on 02-28-2022 Platelets (Bld) [#/Vol] 202 10*3/uL 150-450 [facility] Absolute lymphocyte countOrd ered By: Renard Burgos on 02-21-2022 Lymphocytes Auto (Unsp spec) [#/Vol] 1.93 10*3/uL 0.83-4.51 [facility] Basophil percentageOrdered B y: Renard Burgos on 02-21-2022 Basophils/100 WBC (Bld) 0.4 % 0-1 [facility] Eosinophils/100 WBC (Bld) 0.4 % 0-5 [facility] Neutrophils (Bld) [#/Vol] 4.6 10*3/uL 2.0-7.7 [facility] Neutrophils/100 WBC (Bld) 63.4 % 47-70 [facility] WBC (Bld) [#/Vol] 7.2 10*3/uL 4.4-11.0 [facility] Blood erythrocytes count (nu mber/volume)Ordered By: Renard Burgos on 02-21-2022 RBC (Bld) [#/Vol] 4.54 10*6/uL 4.6-6.2 [facility] Blood hemoglobin measurement (mass/volume)Ordered By: Renard Burgos on 02-21-2022 Hemoglobin (Bld) [Mass/Vol] 14.1 g/dL 13.0-16.5 [facility] Blood lymphocytes/100 leukoc ytesOrdered By: Renard Burgos on 02-21-2022 Lymphocytes/100 WBC (Bld) 26.7 % 19-41 [facility] Blood monocytes/100 leukocyt esOrdered By: Renard Burgos on 02-21-2022 Monocytes/100 WBC (Bld) 8.8 % 0-10 [facility] Blood platelet mean volumeOr dered By: Renard Burgos on 02-21-2022 Platelet mean volume (Bld) [Entitic vol] 11.1 fL 6.2-12.0 [facility] Determination of erythrocyte mean corpuscular volume (MCV)Ordered By: Renard Burgos on 02-21-2022 MCV (RBC) [Entitic vol] 91.4 fL 80-94 [facility] Hematocrit Auto (Bld) [Volum e fraction]Ordered By: Renard Burgos on 02-21-2022 Hematocrit (Bld) [Volume fraction] 41.5 % 40-54 [facility] - Hematology and Cell countsOrdered By: Renard Burgos on 02-21-2022 Erythrocyte distribution width (RBC) [Entitic vol] 41.9 fL 35.1-43.9 [facility] Erythrocyte distribution width (RBC) [Ratio] 12.6 % 11.6-14.6 [facility] Immature granulocytes/100 WBC (Bld) 0.300 % 0.0-0.9 [facility] Comment on above: IG% - Immature Granu locytes (promyelocytes, myelocytes and metamyelocytes) > 1% indicates that a LEFT SHIFT is Present. MCH (RBC) [Entitic mass] 31.1 pg 27.0-32.0 [facility] Nucleated RBC/100 WBC (Bld) [Ratio] 0 % 0-5 [facility] MCHC Auto (RBC) [Mass/Vol]Or dered By: Renard Burgos on 02-21-2022 MCHC (RBC) [Mass/Vol] 34.0 g/dL 32-36 [facility] Platelets bldOrdered By: Lyubov Burgos on 02-21-2022 Platelets (Bld) [#/Vol] 189 10*3/uL 150-450 [facility] Absolute lymphocyte countOrd ered By: Renard Burgos on 02-14-2022 Lymphocytes Auto (Unsp spec) [#/Vol] 2.00 10*3/uL 0.83-4.51 [facility] Basophil percentageOrdered B y: Renard Burgos on 02-14-2022 Basophils/100 WBC (Bld) 0.6 % 0-1 [facility] Eosinophils/100 WBC (Bld) 0.3 % 0-5 [facility] Neutrophils (Bld) [#/Vol] 6.4 10*3/uL 2.0-7.7 [facility] Neutrophils/100 WBC (Bld) 69.5 % 47-70 [facility] WBC (Bld) [#/Vol] 9.3 10*3/uL 4.4-11.0 [facility] Blood erythrocytes count (nu mber/volume)Ordered By: Reanrd Burgos on 02-14-2022 RBC (Bld) [#/Vol] 4.65 10*6/uL 4.6-6.2 [facility] Blood hemoglobin measurement (mass/volume)Ordered By: Renard Burgos on 02-14-2022 Hemoglobin (Bld) [Mass/Vol] 14.6 g/dL 13.0-16.5 [facility] Blood lymphocytes/100 leukoc ytesOrdered By: Reanrd Burgos on 02-14-2022 Lymphocytes/100 WBC (Bld) 21.6 % 19-41 [facility] Blood monocytes/100 leukocyt esOrdered By: Renard Burgos on 02-14-2022 Monocytes/100 WBC (Bld) 7.6 % 0-10 [facility] Blood platelet mean volumeOr dered By: Renard Burgos on 02-14-2022 Platelet mean volume (Bld) [Entitic vol] 11.1 fL 6.2-12.0 [facility] Determination of erythrocyte mean corpuscular volume (MCV)Ordered By: Renard Burgos on 02-14-2022 MCV (RBC) [Entitic vol] 91.8 fL 80-94 [facility] Hematocrit Auto (Bld) [Volum e fraction]Ordered By: Renard Burgos on 02-14-2022 Hematocrit (Bld) [Volume fraction] 42.7 % 40-54 [facility] - Hematology and Cell countsOrdered By: Renard Burgos on 02-14-2022 Erythrocyte distribution width (RBC) [Entitic vol] 43.7 fL 35.1-43.9 [facility] Erythrocyte distribution width (RBC) [Ratio] 13.0 % 11.6-14.6 [facility] Immature granulocytes/100 WBC (Bld) 0.400 % 0.0-0.9 [facility] Comment on above: IG% - Immature Granu locytes (promyelocytes, myelocytes and metamyelocytes) > 1% indicates that a LEFT SHIFT is Present. MCH (RBC) [Entitic mass] 31.4 pg 27.0-32.0 [facility] Nucleated RBC/100 WBC (Bld) [Ratio] 0 % 0-5 [facility] MCHC Auto (RBC) [Mass/Vol]Or dered By: Renard Burgos on 02-14-2022 MCHC (RBC) [Mass/Vol] 34.2 g/dL 32-36 [facility] Platelets bldOrdered By: Pet lizy Loretta on 02-14-2022 Platelets (Bld) [#/Vol] 187 10*3/uL 150-450 [facility] Absolute lymphocyte countOrd ered By: Renard Burgos on 02-07-2022 Lymphocytes Auto (Unsp spec) [#/Vol] 1.97 10*3/uL 0.83-4.51 [facility] Basophil percentageOrdered B y: Renard Burgos on 02-07-2022 Basophils/100 WBC (Bld) 0.4 % 0-1 [facility] Eosinophils/100 WBC (Bld) 0.3 % 0-5 [facility] Neutrophils (Bld) [#/Vol] 4.2 10*3/uL 2.0-7.7 [facility] Neutrophils/100 WBC (Bld) 61.8 % 47-70 [facility] WBC (Bld) [#/Vol] 6.8 10*3/uL 4.4-11.0 [facility] Blood erythrocytes count (nu mber/volume)Ordered By: Renard Burgos on 02-07-2022 RBC (Bld) [#/Vol] 4.86 10*6/uL 4.6-6.2 [facility] Blood hemoglobin measurement (mass/volume)Ordered By: Renard Burgos on 02-07-2022 Hemoglobin (Bld) [Mass/Vol] 15.4 g/dL 13.0-16.5 [facility] Blood lymphocytes/100 leukoc ytesOrdered By: Renard Burgos on 02-07-2022 Lymphocytes/100 WBC (Bld) 29.1 % 19-41 [facility] Blood monocytes/100 leukocyt esOrdered By: Renard Burgos on 02-07-2022 Monocytes/100 WBC (Bld) 8.1 % 0-10 [facility] Blood platelet mean volumeOr dered By: Renard Burgos on 02-07-2022 Platelet mean volume (Bld) [Entitic vol] 11.0 fL 6.2-12.0 [facility] Determination of erythrocyte mean corpuscular volume (MCV)Ordered By: Renard Burgos on 02-07-2022 MCV (RBC) [Entitic vol] 92.6 fL 80-94 [facility] Hematocrit Auto (Bld) [Volum e fraction]Ordered By: Renard Burgos on 02-07-2022 Hematocrit (Bld) [Volume fraction] 45.0 % 40-54 [facility] - Hematology and Cell countsOrdered By: Renard Burgos on 02-07-2022 Erythrocyte distribution width (RBC) [Entitic vol] 43.1 fL 35.1-43.9 [facility] Erythrocyte distribution width (RBC) [Ratio] 12.7 % 11.6-14.6 [facility] Immature granulocytes/100 WBC (Bld) 0.300 % 0.0-0.9 [facility] Comment on above: IG% - Immature Granu locytes (promyelocytes, myelocytes and metamyelocytes) > 1% indicates that a LEFT SHIFT is Present. MCH (RBC) [Entitic mass] 31.7 pg 27.0-32.0 [facility] Nucleated RBC/100 WBC (Bld) [Ratio] 0 % 0-5 [facility] MCHC Auto (RBC) [Mass/Vol]Or dered By: Renard Burgos on 02-07-2022 MCHC (RBC) [Mass/Vol] 34.2 g/dL 32-36 [facility] Platelets bldOrdered By: Lyubov Burgos on 02-07-2022 Platelets (Bld) [#/Vol] 196 10*3/uL 150-450 [facility] Absolute lymphocyte countOrd ered By: Renard Burgos on 01-31-2022 Lymphocytes Auto (Unsp spec) [#/Vol] 2.19 10*3/uL 0.83-4.51 [facility] Basophil percentageOrdered B y: Renard Burgos on 01-31-2022 Basophils/100 WBC (Bld) 0.3 % 0-1 [facility] Eosinophils/100 WBC (Bld) 0.2 % 0-5 [facility] Neutrophils (Bld) [#/Vol] 5.7 10*3/uL 2.0-7.7 [facility] Neutrophils/100 WBC (Bld) 64.9 % 47-70 [facility] WBC (Bld) [#/Vol] 8.8 10*3/uL 4.4-11.0 [facility] Blood erythrocytes count (nu mber/volume)Ordered By: Renard Burgos on 01-31-2022 RBC (Bld) [#/Vol] 4.81 10*6/uL 4.6-6.2 [facility] Blood hemoglobin measurement (mass/volume)Ordered By: Renard Burgos on 01-31-2022 Hemoglobin (Bld) [Mass/Vol] 14.9 g/dL 13.0-16.5 [facility] Blood lymphocytes/100 leukoc ytesOrdered By: Renard Burgos on 01-31-2022 Lymphocytes/100 WBC (Bld) 24.9 % 19-41 [facility] Blood monocytes/100 leukocyt esOrdered By: Renard Burgos on 01-31-2022 Monocytes/100 WBC (Bld) 9.2 % 0-10 [facility] Blood platelet mean volumeOr dered By: Renard Burgos on 01-31-2022 Platelet mean volume (Bld) [Entitic vol] 11.0 fL 6.2-12.0 [facility] Determination of erythrocyte mean corpuscular volume (MCV)Ordered By: Renard Burgos on 01-31-2022 MCV (RBC) [Entitic vol] 92.9 fL 80-94 [facility] Hematocrit Auto (Bld) [Volum e fraction]Ordered By: Renard Burgos on 01-31-2022 Hematocrit (Bld) [Volume fraction] 44.7 % 40-54 [facility] - Hematology and Cell countsOrdered By: Renard Burgos on 01-31-2022 Erythrocyte distribution width (RBC) [Entitic vol] 42.9 fL 35.1-43.9 [facility] Erythrocyte distribution width (RBC) [Ratio] 12.6 % 11.6-14.6 [facility] Immature granulocytes/100 WBC (Bld) 0.500 % 0.0-0.9 [facility] Comment on above: IG% - Immature Granu locytes (promyelocytes, myelocytes and metamyelocytes) > 1% indicates that a LEFT SHIFT is Present. MCH (RBC) [Entitic mass] 31.0 pg 27.0-32.0 [facility] Nucleated RBC/100 WBC (Bld) [Ratio] 0 % 0-5 [facility] MCHC Auto (RBC) [Mass/Vol]Or dered By: Renard Burgos on 01-31-2022 MCHC (RBC) [Mass/Vol] 33.3 g/dL 32-36 [facility] Platelets bldOrdered By: Lyubov Burgos on 01-31-2022 Platelets (Bld) [#/Vol] 204 10*3/uL 150-450 [facility] Absolute lymphocyte countOrd ered By: Renard Burgos on 01-24-2022 Lymphocytes Auto (Unsp spec) [#/Vol] 1.82 10*3/uL 0.83-4.51 [facility] Basophil percentageOrdered B y: Renard Burgos on 01-24-2022 Basophils/100 WBC (Bld) 0.3 % 0-1 [facility] Eosinophils/100 WBC (Bld) 0.3 % 0-5 [facility] Neutrophils (Bld) [#/Vol] 6.1 10*3/uL 2.0-7.7 [facility] Neutrophils/100 WBC (Bld) 69.9 % 47-70 [facility] WBC (Bld) [#/Vol] 8.7 10*3/uL 4.4-11.0 [facility] Blood erythrocytes count (nu mber/volume)Ordered By: Renard Burgos on 01-24-2022 RBC (Bld) [#/Vol] 4.74 10*6/uL 4.6-6.2 [facility] Blood hemoglobin measurement (mass/volume)Ordered By: Renard Burgos on 01-24-2022 Hemoglobin (Bld) [Mass/Vol] 14.5 g/dL 13.0-16.5 [facility] Blood lymphocytes/100 leukoc ytesOrdered By: Renard Burgos on 01-24-2022 Lymphocytes/100 WBC (Bld) 20.9 % 19-41 [facility] Blood monocytes/100 leukocyt esOrdered By: Renard Burgos on 01-24-2022 Monocytes/100 WBC (Bld) 8.4 % 0-10 [facility] Blood platelet mean volumeOr dered By: Renard Burgos on 01-24-2022 Platelet mean volume (Bld) [Entitic vol] 10.9 fL 6.2-12.0 [facility] Determination of erythrocyte mean corpuscular volume (MCV)Ordered By: Renard Burgos on 01-24-2022 MCV (RBC) [Entitic vol] 92.0 fL 80-94 [facility] Hematocrit Auto (Bld) [Volum e fraction]Ordered By: Renard Burgos on 01-24-2022 Hematocrit (Bld) [Volume fraction] 43.6 % 40-54 [facility] - Hematology and Cell countsOrdered By: Renard Burgos on 01-24-2022 Erythrocyte distribution width (RBC) [Entitic vol] 42.3 fL 35.1-43.9 [facility] Erythrocyte distribution width (RBC) [Ratio] 12.5 % 11.6-14.6 [facility] Immature granulocytes/100 WBC (Bld) 0.200 % 0.0-0.9 [facility] Comment on above: IG% - Immature Granu locytes (promyelocytes, myelocytes and metamyelocytes) > 1% indicates that a LEFT SHIFT is Present. MCH (RBC) [Entitic mass] 30.6 pg 27.0-32.0 [facility] Nucleated RBC/100 WBC (Bld) [Ratio] 0 % 0-5 [facility] MCHC Auto (RBC) [Mass/Vol]Or dered By: Renard Burgos on 01-24-2022 MCHC (RBC) [Mass/Vol] 33.3 g/dL 32-36 [facility] Platelets bldOrdered By: Lyubov Burgos on 01-24-2022 Platelets (Bld) [#/Vol] 192 10*3/uL 150-450 [facility] Absolute lymphocyte counton 01-17-2022 Lymphocytes Auto (Unsp spec) [#/Vol] 1.89 10*3/uL 0.83-4.51 [facility] Work Phone: Basophil percentageon 2021 Basophils/100 WBC (Bld) 0.4 % 0-1 [facility] Work Phone: Eosinophils/100 WBC (Bld) 0.3 % 0-5 [facility] Work Phone: Neutrophils (Bld) [#/Vol] 4.4 10*3/uL 2.0-7.7 [facility] Work Phone: Neutrophils/100 WBC (Bld) 62.4 % 47-70 [facility] Work Phone: WBC (Bld) [#/Vol] 7.0 10*3/uL 4.4-11.0 [facility] Work Phone: Blood erythrocytes count (nu mber/volume)on 01-17-2022 RBC (Bld) [#/Vol] 4.64 10*6/uL 4.6-6.2 [facility] Work Phone: Blood hemoglobin measurement (mass/volume)on 01-17-2022 Hemoglobin (Bld) [Mass/Vol] 14.1 g/dL 13.0-16.5 [facility] Work Phone: Blood lymphocytes/100 leukoc yteson 01-17-2022 Lymphocytes/100 WBC (Bld) 27.0 % 19-41 [facility] Work Phone: Blood monocytes/100 leukocyt eson 01-17-2022 Monocytes/100 WBC (Bld) 9.3 % 0-10 [facility] Work Phone: Blood platelet mean volumeon 01-17-2022 Platelet mean volume (Bld) [Entitic vol] 11.1 fL 6.2-12.0 [facility] Work Phone: Determination of erythrocyte mean corpuscular volume (MCV)on 01-17-2022 MCV (RBC) [Entitic vol] 91.8 fL 80-94 [facility] Work Phone: Hematocrit Auto (Bld) [Volum e fraction]on 01-17-2022 Hematocrit (Bld) [Volume fraction] 42.6 % 40-54 [facility] Work Phone: Laboratory - Hematology and Cell countson 01-17-2022 Erythrocyte distribution width (RBC) [Entitic vol] 41.5 fL 35.1-43.9 [facility] Work Phone: Erythrocyte distribution width (RBC) [Ratio] 12.5 % 11.6-14.6 [facility] Work Phone: Immature granulocytes/100 WBC (Bld) 0.600 % 0.0-0.9 [facility] Work Phone: Comment on above: IG% - Immature Granu locytes (promyelocytes, myelocytes and metamyelocytes) > 1% indicates that a LEFT SHIFT is Present. MCH (RBC) [Entitic mass] 30.4 pg 27.0-32.0 [facility] Work Phone: Nucleated RBC/100 WBC (Bld) [Ratio] 0 % 0-5 [facility] Work Phone: MCHC Auto (RBC) [Mass/Vol]on 01-17-2022 MCHC (RBC) [Mass/Vol] 33.1 g/dL 32-36 [facility]: Platelets bldon 01-17-2022 Platelets (Bld) [#/Vol] 200 10*3/uL 150-450 [facility] Work Phone: Absolute lymphocyte counton 01-10-2022 Lymphocytes Auto (Unsp spec) [#/Vol] 2.07 10*3/uL 0.83-4.51 [facility] Work Phone: Basophil percentageon 2021 Basophils/100 WBC (Bld) 0.6 % 0-1 [facility] Work Phone: Eosinophils/100 WBC (Bld) 0.3 % 0-5 [facility] Work Phone: Neutrophils (Bld) [#/Vol] 4.2 10*3/uL 2.0-7.7 [facility] Work Phone: Neutrophils/100 WBC (Bld) 59.2 % 47-70 [facility] Work Phone: WBC (Bld) [#/Vol] 7.0 10*3/uL 4.4-11.0 [facility]: Blood erythrocytes count (nu mber/volume)on 01-10-2022 RBC (Bld) [#/Vol] 4.83 10*6/uL 4.6-6.2 [facility]: Blood hemoglobin measurement (mass/volume)on 01-10-2022 Hemoglobin (Bld) [Mass/Vol] 14.8 g/dL 13.0-16.5 [facility] Work Phone: Blood lymphocytes/100 leukoc yteson 01-10-2022 Lymphocytes/100 WBC (Bld) 29.5 % 19-41 [facility] Work Phone: Blood monocytes/100 leukocyt eson 01-10-2022 Monocytes/100 WBC (Bld) 10.1 % 0-10 [facility] Work Phone: Blood platelet mean volumeon 01-10-2022 Platelet mean volume (Bld) [Entitic vol] 10.8 fL 6.2-12.0 [facility] Work Phone: Determination of erythrocyte mean corpuscular volume (MCV)on 01-10-2022 MCV (RBC) [Entitic vol] 97.5 fL 80-94 [facility] Work Phone: Hematocrit Auto (Bld) [Volum e fraction]on 01-10-2022 Hematocrit (Bld) [Volume fraction] 47.1 % 40-54 [facility] Work Phone: Laboratory - Hematology and Cell countson 01-10-2022 Erythrocyte distribution width (RBC) [Entitic vol] 44.9 fL 35.1-43.9 [facility] Work Phone: Erythrocyte distribution width (RBC) [Ratio] 12.7 % 11.6-14.6 [facility] Work Phone: Immature granulocytes/100 WBC (Bld) 0.300 % 0.0-0.9 [facility] Work Phone: Comment on above: IG% - Immature Granu locytes (promyelocytes, myelocytes and metamyelocytes) > 1% indicates that a LEFT SHIFT is Present. MCH (RBC) [Entitic mass] 30.6 pg 27.0-32.0 [facility] Work Phone: Nucleated RBC/100 WBC (Bld) [Ratio] 0 % 0-5 [facility] Work Phone: MCHC Auto (RBC) [Mass/Vol]on 01-10-2022 MCHC (RBC) [Mass/Vol] 31.4 g/dL 32-36 [facility] Work Phone: Platelets bldon 01-10-2022 Platelets (Bld) [#/Vol] 169 10*3/uL 150-450 [facility] Work Phone: [phone] Absolute lymphocyte counton 01-04-2022 Lymphocytes Auto (Unsp spec) [#/Vol] 1.84 10*3/uL 0.83-4.51 [facility] Work Phone: Basophil percentageon 2021 Basophils/100 WBC (Bld) 0.3 % 0-1 [facility] Work Phone: Eosinophils/100 WBC (Bld) 0.3 % 0-5 [facility] Work Phone: Neutrophils (Bld) [#/Vol] 4.8 10*3/uL 2.0-7.7 [facility] Work Phone: Neutrophils/100 WBC (Bld) 64.8 % 47-70 [facility] Work Phone: WBC (Bld) [#/Vol] 7.4 10*3/uL 4.4-11.0 [facility] Work Phone: Blood erythrocytes count (nu mber/volume)on 01-04-2022 RBC (Bld) [#/Vol] 4.67 10*6/uL 4.6-6.2 [facility] Work Phone: Blood hemoglobin measurement (mass/volume)on 01-04-2022 Hemoglobin (Bld) [Mass/Vol] 14.2 g/dL 13.0-16.5 [facility] Work Phone: Blood lymphocytes/100 leukoc yteson 01-04-2022 Lymphocytes/100 WBC (Bld) 25.0 % 19-41 [facility] Work Phone: Blood monocytes/100 leukocyt eson 01-04-2022 Monocytes/100 WBC (Bld) 9.1 % 0-10 [facility] Work Phone: Blood platelet mean volumeon 01-04-2022 Platelet mean volume (Bld) [Entitic vol] 11.0 fL 6.2-12.0 [facility] Work Phone: Determination of erythrocyte mean corpuscular volume (MCV)on 01-04-2022 MCV (RBC) [Entitic vol] 91.0 fL 80-94 [facility] Work Phone: Hematocrit Auto (Bld) [Volum e fraction]on 01-04-2022 Hematocrit (Bld) [Volume fraction] 42.5 % 40-54 [facility] Work Phone: Laboratory - Hematology and Cell countson 01-04-2022 Erythrocyte distribution width (RBC) [Entitic vol] 41.4 fL 35.1-43.9 [facility] Work Phone: Erythrocyte distribution width (RBC) [Ratio] 12.7 % 11.6-14.6 [facility] Work Phone: Immature granulocytes/100 WBC (Bld) 0.500 % 0.0-0.9 [facility] Work Phone: Comment on above: IG% - Immature Granu locytes (promyelocytes, myelocytes and metamyelocytes) > 1% indicates that a LEFT SHIFT is Present. MCH (RBC) [Entitic mass] 30.4 pg 27.0-32.0 [facility] Work Phone: Nucleated RBC/100 WBC (Bld) [Ratio] 0 % 0-5 [facility] Work Phone: [phone] MCHC Auto (RBC) [Mass/Vol]on 01-04-2022 MCHC (RBC) [Mass/Vol] 33.4 g/dL 32-36 [facility] Work Phone: [phone] Platelets bldon 01-04-2022 Platelets (Bld) [#/Vol] 184 10*3/uL 150-450 [facility] Work Phone: Absolute lymphocyte counton 12-27-2021 Lymphocytes Auto (Unsp spec) [#/Vol] 1.79 10*3/uL 0.83-4.51 [facility] Work Phone: [phone] Basophil percentageon 2021 Basophils/100 WBC (Bld) 0.4 % 0-1 [facility] Work Phone: [phone] Eosinophils/100 WBC (Bld) 0.4 % 0-5 [facility] Work Phone: [phone] Neutrophils (Bld) [#/Vol] 4.9 10*3/uL 2.0-7.7 [facility] Work Phone: [phone] Neutrophils/100 WBC (Bld) 65.2 % 47-70 [facility] Work Phone: [phone] WBC (Bld) [#/Vol] 7.6 10*3/uL 4.4-11.0 [facility] Work Phone: [phone] Blood erythrocytes count (nu mber/volume)on 12-27-2021 RBC (Bld) [#/Vol] 4.66 10*6/uL 4.6-6.2 [facility] Work Phone: [phone] Blood hemoglobin measurement (mass/volume)on 12-27-2021 Hemoglobin (Bld) [Mass/Vol] 14.5 g/dL 13.0-16.5 [facility] Work Phone: [phone] Blood lymphocytes/100 leukoc yteson 12-27-2021 Lymphocytes/100 WBC (Bld) 23.6 % 19-41 [facility] Work Phone: Blood monocytes/100 leukocyt eson 12-27-2021 Monocytes/100 WBC (Bld) 10.0 % 0-10 [facility] Work Phone: Blood platelet mean volumeon 12-27-2021 Platelet mean volume (Bld) [Entitic vol] 10.9 fL 6.2-12.0 [facility] Work Phone: Determination of erythrocyte mean corpuscular volume (MCV)on 12-27-2021 MCV (RBC) [Entitic vol] 91.0 fL 80-94 [facility] Work Phone: Hematocrit Auto (Bld) [Volum e fraction]on 12-27-2021 Hematocrit (Bld) [Volume fraction] 42.4 % 40-54 [facility] Work Phone: Laboratory - Hematology and Cell countson 12-27-2021 Erythrocyte distribution width (RBC) [Entitic vol] 41.2 fL 35.1-43.9 [facility] Work Phone: Erythrocyte distribution width (RBC) [Ratio] 12.6 % 11.6-14.6 [facility] Work Phone: Immature granulocytes/100 WBC (Bld) 0.400 % 0.0-0.9 [facility] Work Phone: Comment on above: IG% - Immature Granu locytes (promyelocytes, myelocytes and metamyelocytes) > 1% indicates that a LEFT SHIFT is Present. MCH (RBC) [Entitic mass] 31.1 pg 27.0-32.0 [facility] Work Phone: Nucleated RBC/100 WBC (Bld) [Ratio] 0 % 0-5 [facility] Work Phone: MCHC Auto (RBC) [Mass/Vol]on 12-27-2021 MCHC (RBC) [Mass/Vol] 34.2 g/dL 32-36 [facility] Work Phone: [phone] Platelets bldon 12-27-2021 Platelets (Bld) [#/Vol] 185 10*3/uL 150-450 [facility] Work Phone: Absolute lymphocyte counton 12-20-2021 Lymphocytes Auto (Unsp spec) [#/Vol] 2.02 10*3/uL 0.83-4.51 [facility] Work Phone: Basophil percentageon 2021 Basophils/100 WBC (Bld) 0.2 % 0-1 [facility] Work Phone: Eosinophils/100 WBC (Bld) 0.3 % 0-5 [facility] Work Phone: [phone] Neutrophils (Bld) [#/Vol] 3.6 10*3/uL 2.0-7.7 [facility] Work Phone: [phone] Neutrophils/100 WBC (Bld) 57.8 % 47-70 [facility] Work Phone: WBC (Bld) [#/Vol] 6.1 10*3/uL 4.4-11.0 [facility] Work Phone: [phone] Blood erythrocytes count (nu mber/volume)on 12-20-2021 RBC (Bld) [#/Vol] 4.81 10*6/uL 4.6-6.2 [facility] Work Phone: [phone] Blood hemoglobin measurement (mass/volume)on 12-20-2021 Hemoglobin (Bld) [Mass/Vol] 14.8 g/dL 13.0-16.5 [facility] Work Phone: [phone] Blood lymphocytes/100 leukoc yteson 12-20-2021 Lymphocytes/100 WBC (Bld) 32.9 % 19-41 [facility] Work Phone: Blood monocytes/100 leukocyt eson 12-20-2021 Monocytes/100 WBC (Bld) 8.3 % 0-10 [facility] Work Phone: Blood platelet adequacy dete ction by light microscopyon 12-20-2021 Platelets LM Ql (Bld) ADEQUATE ADEQ [facility] Work Phone: Blood platelet mean volumeon 12-20-2021 Platelet mean volume (Bld) [Entitic vol] 11.1 fL 6.2-12.0 [facility] Work Phone: Determination of erythrocyte mean corpuscular volume (MCV)on 12-20-2021 MCV (RBC) [Entitic vol] 93.1 fL 80-94 [facility] Work Phone: Hematocrit Auto (Bld) [Volum e fraction]on 12-20-2021 Hematocrit (Bld) [Volume fraction] 44.8 % 40-54 [facility] Work Phone: Laboratory - Hematology and Cell countson 12-20-2021 Erythrocyte distribution width (RBC) [Entitic vol] 42.4 fL 35.1-43.9 [facility] Work Phone: Erythrocyte distribution width (RBC) [Ratio] 12.4 % 11.6-14.6 [facility] Work Phone: Immature granulocytes/100 WBC (Bld) 0.500 % 0.0-0.9 [facility] Work Phone: Comment on above: IG% - Immature Granu locytes (promyelocytes, myelocytes and metamyelocytes) > 1% indicates that a LEFT SHIFT is Present. MCH (RBC) [Entitic mass] 30.8 pg 27.0-32.0 [facility] Work Phone: Nucleated RBC/100 WBC (Bld) [Ratio] 0 % 0-5 [facility] Work Phone: MCHC Auto (RBC) [Mass/Vol]on 12-20-2021 MCHC (RBC) [Mass/Vol] 33.0 g/dL 32-36 [facility] Work Phone: Platelets bldon 12-20-2021 Platelets (Bld) [#/Vol] See comment 150-450 [facility] Work Phone: Comment on above: [...] Auto (Unsp spec) [#/Vol] 1.88 10*3/uL 0.83-4.51 [facility] Work Phone: Basophil percentageon 2021 Basophils/100 WBC (Bld) 0.6 % 0-1 [facility] Work Phone: [phone] Eosinophils/100 WBC (Bld) 0.3 % 0-5 [facility] Work Phone: Neutrophils (Bld) [#/Vol] 4.5 10*3/uL 2.0-7.7 [facility] Work Phone: Neutrophils/100 WBC (Bld) 63.6 % 47-70 [facility] Work Phone: WBC (Bld) [#/Vol] 7.1 10*3/uL 4.4-11.0 [facility] Work Phone: Blood erythrocytes count (nu mber/volume)on 12-13-2021 RBC (Bld) [#/Vol] 4.70 10*6/uL 4.6-6.2 [facility] Work Phone: [phone] Blood hemoglobin measurement (mass/volume)on 12-13-2021 Hemoglobin (Bld) [Mass/Vol] 14.4 g/dL 13.0-16.5 [facility] Work Phone: Blood lymphocytes/100 leukoc yteson 12-13-2021 Lymphocytes/100 WBC (Bld) 26.7 % 19-41 [facility] Work Phone: [phone] Blood monocytes/100 leukocyt eson 12-13-2021 Monocytes/100 WBC (Bld) 8.5 % 0-10 [facility] Work Phone: Blood platelet mean volumeon 12-13-2021 Platelet mean volume (Bld) [Entitic vol] 10.9 fL 6.2-12.0 [facility] Work Phone: Determination of erythrocyte mean corpuscular volume (MCV)on 12-13-2021 MCV (RBC) [Entitic vol] 90.9 fL 80-94 [facility] Work Phone: Hematocrit Auto (Bld) [Volum e fraction]on 12-13-2021 Hematocrit (Bld) [Volume fraction] 42.7 % 40-54 [facility] Work Phone: Laboratory - Hematology and Cell countson 12-13-2021 Erythrocyte distribution width (RBC) [Entitic vol] 42.1 fL 35.1-43.9 [facility] Work Phone: Erythrocyte distribution width (RBC) [Ratio] 12.6 % 11.6-14.6 [facility] Work Phone: Immature granulocytes/100 WBC (Bld) 0.300 % 0.0-0.9 [facility] Work Phone: Comment on above: IG% - Immature Granu locytes (promyelocytes, myelocytes and metamyelocytes) > 1% indicates that a LEFT SHIFT is Present. MCH (RBC) [Entitic mass] 30.6 pg 27.0-32.0 [facility] Work Phone: Nucleated RBC/100 WBC (Bld) [Ratio] 0 % 0-5 [facility] Work Phone: MCHC Auto (RBC) [Mass/Vol]on 12-13-2021 MCHC (RBC) [Mass/Vol] 33.7 g/dL 32-36 [facility]: Platelets bldon 12-13-2021 Platelets (Bld) [#/Vol] 194 10*3/uL 150-450 [facility] Work Phone: Absolute lymphocyte counton 12-06-2021 Lymphocytes Auto (Unsp spec) [#/Vol] 1.91 10*3/uL 0.83-4.51 [facility] Work Phone: Basophil percentageon 2021 Basophils/100 WBC (Bld) 0.4 % 0-1 [facility] Work Phone: Eosinophils/100 WBC (Bld) 0.3 % 0-5 [facility] Work Phone: Neutrophils (Bld) [#/Vol] 4.4 10*3/uL 2.0-7.7 [facility] Work Phone: Neutrophils/100 WBC (Bld) 62.2 % 47-70 [facility] Work Phone: WBC (Bld) [#/Vol] 7.0 10*3/uL 4.4-11.0 [facility]: Blood erythrocytes count (nu mber/volume)on 12-06-2021 RBC (Bld) [#/Vol] 4.58 10*6/uL 4.6-6.2 [facility] Work [facility]: Blood hemoglobin measurement (mass/volume)on 12-06-2021 Hemoglobin (Bld) [Mass/Vol] 13.8 g/dL 13.0-16.5 [facility] Work Phone: Blood lymphocytes/100 leukoc yteson 12-06-2021 Lymphocytes/100 WBC (Bld) 27.2 % 19-41 [facility] Work Phone: Blood monocytes/100 leukocyt eson 12-06-2021 Monocytes/100 WBC (Bld) 9.6 % 0-10 [facility] Work Phone: Blood platelet mean volumeon 12-06-2021 Platelet mean volume (Bld) [Entitic vol] 11.1 fL 6.2-12.0 [facility] Work Phone: Determination of erythrocyte mean corpuscular volume (MCV)on 12-06-2021 MCV (RBC) [Entitic vol] 92.1 fL 80-94 [facility] Work Phone: Hematocrit Auto (Bld) [Volum e fraction]on 12-06-2021 Hematocrit (Bld) [Volume fraction] 42.2 % 40-54 [facility] Work Phone: Laboratory - Hematology and Cell countson 12-06-2021 Erythrocyte distribution width (RBC) [Entitic vol] 42.1 fL 35.1-43.9 [facility] Work Phone: Erythrocyte distribution width (RBC) [Ratio] 12.6 % 11.6-14.6 [facility] Work Phone: Immature granulocytes/100 WBC (Bld) 0.300 % 0.0-0.9 [facility] Work Phone: Comment on above: IG% - Immature Granu locytes (promyelocytes, myelocytes and metamyelocytes) > 1% indicates that a LEFT SHIFT is Present. MCH (RBC) [Entitic mass] 30.1 pg 27.0-32.0 [facility] Work Phone: Nucleated RBC/100 WBC (Bld) [Ratio] 0 % 0-5 [facility] Work Phone: MCHC Auto (RBC) [Mass/Vol]on 12-06-2021 MCHC (RBC) [Mass/Vol] 32.7 g/dL 32-36 [facility] Work Phone: Platelets bldon 12-06-2021 Platelets (Bld) [#/Vol] 180 10*3/uL 150-450 [facility] Work Phone: Absolute lymphocyte counton 11-29-2021 Lymphocytes Auto (Unsp spec) [#/Vol] 2.00 10*3/uL 0.83-4.51 [facility] Work Phone: Basophil percentageon 08-01- 2022 Basophils/100 WBC (Bld) 0.4 % 0-1 [facility] Work Phone: Eosinophils/100 WBC (Bld) 0.3 % 0-5 [facility] Work Phone: Neutrophils (Bld) [#/Vol] 4.4 10*3/uL 2.0-7.7 [facility] Work Phone: Neutrophils/100 WBC (Bld) 62.8 % 47-70 [facility] Work Phone: WBC (Bld) [#/Vol] 7.0 10*3/uL 4.4-11.0 [facility] Work Phone: Blood erythrocytes count (nu mber/volume)on 11-29-2021 RBC (Bld) [#/Vol] 4.72 10*6/uL 4.6-6.2 [facility] Work [facility]: Blood hemoglobin measurement (mass/volume)on 11-29-2021 Hemoglobin (Bld) [Mass/Vol] 14.6 g/dL 13.0-16.5 [facility] Work Phone: Blood lymphocytes/100 leukoc yteson 11-29-2021 Lymphocytes/100 WBC (Bld) 28.6 % 19-41 [facility] Work Phone: Blood monocytes/100 leukocyt eson 11-29-2021 Monocytes/100 WBC (Bld) 7.6 % 0-10 [facility] Work Phone: Blood platelet mean volumeon 11-29-2021 Platelet mean volume (Bld) [Entitic vol] 11.1 fL 6.2-12.0 [facility] Work Phone: Determination of erythrocyte mean corpuscular volume (MCV)on 11-29-2021 MCV (RBC) [Entitic vol] 91.9 fL 80-94 [facility] Work Phone: Hematocrit Auto (Bld) [Volum e fraction]on 11-29-2021 Hematocrit (Bld) [Volume fraction] 43.4 % 40-54 [facility] Work Phone: Laboratory - Hematology and Cell countson 11-29-2021 Erythrocyte distribution width (RBC) [Entitic vol] 41.8 fL 35.1-43.9 [facility] Work Phone: Erythrocyte distribution width (RBC) [Ratio] 12.4 % 11.6-14.6 [facility] Work Phone: Immature granulocytes/100 WBC (Bld) 0.300 % 0.0-0.9 [facility] Work Phone: Comment on above: IG% - Immature Granu locytes (promyelocytes, myelocytes and metamyelocytes) > 1% indicates that a LEFT SHIFT is Present. MCH (RBC) [Entitic mass] 30.9 pg 27.0-32.0 [facility] Work Phone: Nucleated RBC/100 WBC (Bld) [Ratio] 0 % 0-5 [facility] Work Phone: MCHC Auto (RBC) [Mass/Vol]on 11-29-2021 MCHC (RBC) [Mass/Vol] 33.6 g/dL 32-36 [facility] Work Phone: Platelets bldon 11-29-2021 Platelets (Bld) [#/Vol] 205 10*3/uL 150-450 [facility] Work Phone: Absolute lymphocyte counton 11-22-2021 Lymphocytes Auto (Unsp spec) [#/Vol] 2.25 10*3/uL 0.83-4.51 [facility] Work Phone: [phone] Basophil percentageon 2021 Basophils/100 WBC (Bld) 0.4 % 0-1 [facility] Work Phone: Eosinophils/100 WBC (Bld) 0.4 % 0-5 [facility] Work Phone: Neutrophils (Bld) [#/Vol] 5.1 10*3/uL 2.0-7.7 [facility] Work Phone: Neutrophils/100 WBC (Bld) 61.7 % 47-70 [facility] Work Phone: WBC (Bld) [#/Vol] 8.3 10*3/uL 4.4-11.0 [facility] Work Phone: Blood erythrocytes count (nu mber/volume)on 11-22-2021 RBC (Bld) [#/Vol] 4.47 10*6/uL 4.6-6.2 [facility] Work Phone: Blood hemoglobin measurement (mass/volume)on 11-22-2021 Hemoglobin (Bld) [Mass/Vol] 13.5 g/dL 13.0-16.5 [facility] Work Phone: Blood lymphocytes/100 leukoc yteson 11-22-2021 Lymphocytes/100 WBC (Bld) 27.2 % 19-41 [facility] Work Phone: Blood monocytes/100 leukocyt eson 11-22-2021 Monocytes/100 WBC (Bld) 9.9 % 0-10 [facility] Work Phone: Blood platelet mean volumeon 11-22-2021 Platelet mean volume (Bld) [Entitic vol] 11.1 fL 6.2-12.0 [facility] Work Phone: Determination of erythrocyte mean corpuscular volume (MCV)on 11-22-2021 MCV (RBC) [Entitic vol] 92.2 fL 80-94 [facility] Work Phone: Hematocrit Auto (Bld) [Volum e fraction]on 11-22-2021 Hematocrit (Bld) [Volume fraction] 41.2 % 40-54 [facility] Work Phone: Laboratory - Hematology and Cell countson 11-22-2021 Erythrocyte distribution width (RBC) [Entitic vol] 42.3 fL 35.1-43.9 [facility] Work Phone: Erythrocyte distribution width (RBC) [Ratio] 12.6 % 11.6-14.6 [facility] Work Phone: Immature granulocytes/100 WBC (Bld) 0.400 % 0.0-0.9 [facility] Work Phone: Comment on above: IG% - Immature Granu locytes (promyelocytes, myelocytes and metamyelocytes) > 1% indicates that a LEFT SHIFT is Present. MCH (RBC) [Entitic mass] 30.2 pg 27.0-32.0 [facility] Work Phone: Nucleated RBC/100 WBC (Bld) [Ratio] 0 % 0-5 [facility] Work Phone: MCHC Auto (RBC) [Mass/Vol]on 11-22-2021 MCHC (RBC) [Mass/Vol] 32.8 g/dL 32-36 [facility] Work Phone: Platelets bldon 11-22-2021 Platelets (Bld) [#/Vol] 190 10*3/uL 150-450 [facility] Work Phone: Absolute lymphocyte counton 11-15-2021 Lymphocytes Auto (Unsp spec) [#/Vol] 2.09 10*3/uL 0.83-4.51 [facility] Work Phone: Basophil percentageon 2021 Basophils/100 WBC (Bld) 0.6 % 0-1 [facility] Work Phone: Eosinophils/100 WBC (Bld) 0.4 % 0-5 [facility] Work Phone: Neutrophils (Bld) [#/Vol] 4.2 10*3/uL 2.0-7.7 [facility] Work Phone: Neutrophils/100 WBC (Bld) 59.1 % 47-70 [facility] Work Phone: WBC (Bld) [#/Vol] 7.1 10*3/uL 4.4-11.0 [facility] Work Phone: Blood erythrocytes count (nu mber/volume)on 11-15-2021 RBC (Bld) [#/Vol] 4.72 10*6/uL 4.6-6.2 [facility] Work Phone: Blood hemoglobin measurement (mass/volume)on 11-15-2021 Hemoglobin (Bld) [Mass/Vol] 14.6 g/dL 13.0-16.5 [facility] Work Phone: Blood lymphocytes/100 leukoc yteson 11-15-2021 Lymphocytes/100 WBC (Bld) 29.4 % 19-41 [facility] Work Phone: Blood monocytes/100 leukocyt eson 11-15-2021 Monocytes/100 WBC (Bld) 10.1 % 0-10 [facility] Work Phone: Blood platelet mean volumeon 11-15-2021 Platelet mean volume (Bld) [Entitic vol] 10.7 fL 6.2-12.0 [facility] Work Phone: Determination of erythrocyte mean corpuscular volume (MCV)on 11-15-2021 MCV (RBC) [Entitic vol] 91.9 fL 80-94 [facility] Work Phone: Hematocrit Auto (Bld) [Volum e fraction]on 11-15-2021 Hematocrit (Bld) [Volume fraction] 43.4 % 40-54 [facility] Work Phone: Laboratory - Hematology and Cell countson 11-15-2021 Erythrocyte distribution width (RBC) [Entitic vol] 41.9 fL 35.1-43.9 [facility] Work Phone: Erythrocyte distribution width (RBC) [Ratio] 12.4 % 11.6-14.6 [facility] Work Phone: Immature granulocytes/100 WBC (Bld) 0.400 % 0.0-0.9 [facility] Work Phone: Comment on above: IG% - Immature Granu locytes (promyelocytes, myelocytes and metamyelocytes) > 1% indicates that a LEFT SHIFT is Present. MCH (RBC) [Entitic mass] 30.9 pg 27.0-32.0 [facility] Work Phone: Nucleated RBC/100 WBC (Bld) [Ratio] 0 % 0-5 [facility] Work Phone: MCHC Auto (RBC) [Mass/Vol]on 11-15-2021 MCHC (RBC) [Mass/Vol] 33.6 g/dL 32-36 [facility] Work Phone: Platelets bldon 11-15-2021 Platelets (Bld) [#/Vol] 191 10*3/uL 150-450 [facility] Work Phone: Absolute lymphocyte counton 11-08-2021 Lymphocytes Auto (Unsp spec) [#/Vol] 1.97 10*3/uL 0.83-4.51 [facility] Work Phone: Basophil percentageon 2021 Basophils/100 WBC (Bld) 0.3 % 0-1 [facility] Work Phone: Eosinophils/100 WBC (Bld) 0.3 % 0-5 [facility] Work Phone: Neutrophils (Bld) [#/Vol] 5.1 10*3/uL 2.0-7.7 [facility] Work Phone: Neutrophils/100 WBC (Bld) 64.6 % 47-70 [facility] Work Phone: WBC (Bld) [#/Vol] 7.8 10*3/uL 4.4-11.0 [facility] Work Phone: [phone] Blood erythrocytes count (nu mber/volume)on 11-08-2021 RBC (Bld) [#/Vol] 4.53 10*6/uL 4.6-6.2 [facility] Work Phone: Blood hemoglobin measurement (mass/volume)on 11-08-2021 Hemoglobin (Bld) [Mass/Vol] 14.2 g/dL 13.0-16.5 [facility] Work Phone: Blood lymphocytes/100 leukoc yteson 11-08-2021 Lymphocytes/100 WBC (Bld) 25.2 % 19-41 [facility] Work Phone: Blood monocytes/100 leukocyt eson 11-08-2021 Monocytes/100 WBC (Bld) 9.3 % 0-10 [facility] Work Phone: Blood platelet mean volumeon 11-08-2021 Platelet mean volume (Bld) [Entitic vol] 10.9 fL 6.2-12.0 [facility] Work Phone: Determination of erythrocyte mean corpuscular volume (MCV)on 11-08-2021 MCV (RBC) [Entitic vol] 92.7 fL 80-94 [facility] Work Phone: Hematocrit Auto (Bld) [Volum e fraction]on 11-08-2021 Hematocrit (Bld) [Volume fraction] 42.0 % 40-54 [facility] Work Phone: Laboratory - Hematology and Cell countson 11-08-2021 Erythrocyte distribution width (RBC) [Entitic vol] 42.3 fL 35.1-43.9 [facility] Work Phone: Erythrocyte distribution width (RBC) [Ratio] 12.5 % 11.6-14.6 [facility] Work Phone: Immature granulocytes/100 WBC (Bld) 0.300 % 0.0-0.9 [facility] Work Phone: Comment on above: IG% - Immature Granu locytes (promyelocytes, myelocytes and metamyelocytes) > 1% indicates that a LEFT SHIFT is Present. MCH (RBC) [Entitic mass] 31.3 pg 27.0-32.0 [facility] Work Phone: Nucleated RBC/100 WBC (Bld) [Ratio] 0 % 0-5 [facility] Work Phone: MCHC Auto (RBC) [Mass/Vol]on 11-08-2021 MCHC (RBC) [Mass/Vol] 33.8 g/dL 32-36 [facility] Work Phone: Platelets bldon 11-08-2021 Platelets (Bld) [#/Vol] 207 10*3/uL 150-450 [facility] Work Phone: Absolute lymphocyte counton 10-25-2021 Lymphocytes Auto (Unsp spec) [#/Vol] 2.05 10*3/uL 0.83-4.51 [facility] Work Phone: Basophil percentageon 2021 Basophils/100 WBC (Bld) 0.4 % 0-1 [facility] Work Phone: Eosinophils/100 WBC (Bld) 0.3 % 0-5 [facility] Work Phone: Neutrophils (Bld) [#/Vol] 4.2 10*3/uL 2.0-7.7 [facility] Work Phone: Neutrophils/100 WBC (Bld) 61.3 % 47-70 [facility] Work Phone: [phone] WBC (Bld) [#/Vol] 6.8 10*3/uL 4.4-11.0 [facility] Work [facility]: Blood erythrocytes count (nu mber/volume)on 10-25-2021 RBC (Bld) [#/Vol] 4.56 10*6/uL 4.6-6.2 [facility] Work Phone: Blood hemoglobin measurement (mass/volume)on 10-25-2021 Hemoglobin (Bld) [Mass/Vol] 13.9 g/dL 13.0-16.5 [facility] Work Phone: [phone] Blood lymphocytes/100 leukoc yteson 10-25-2021 Lymphocytes/100 WBC (Bld) 30.1 % 19-41 [facility] Work Phone: Blood monocytes/100 leukocyt eson 10-25-2021 Monocytes/100 WBC (Bld) 7.3 % 0-10 [facility] Work Phone: Blood platelet mean volumeon 10-25-2021 Platelet mean volume (Bld) [Entitic vol] 10.6 fL 6.2-12.0 [facility] Work Phone: Determination of erythrocyte mean corpuscular volume (MCV)on 10-25-2021 MCV (RBC) [Entitic vol] 91.0 fL 80-94 [facility] Work Phone: Hematocrit Auto (Bld) [Volum e fraction]on 10-25-2021 Hematocrit (Bld) [Volume fraction] 41.5 % 40-54 [facility] Work Phone: Laboratory - Hematology and Cell countson 10-25-2021 Erythrocyte distribution width (RBC) [Entitic vol] 41.7 fL 35.1-43.9 [facility] Work Phone: Erythrocyte distribution width (RBC) [Ratio] 12.6 % 11.6-14.6 [facility] Work Phone: Immature granulocytes/100 WBC (Bld) 0.600 % 0.0-0.9 [facility] Work Phone: Comment on above: IG% - Immature Granu locytes (promyelocytes, myelocytes and metamyelocytes) > 1% indicates that a LEFT SHIFT is Present. MCH (RBC) [Entitic mass] 30.5 pg 27.0-32.0 [facility] Work Phone: Nucleated RBC/100 WBC (Bld) [Ratio] 0 % 0-5 [facility] Work Phone: MCHC Auto (RBC) [Mass/Vol]on 10-25-2021 MCHC (RBC) [Mass/Vol] 33.5 g/dL 32-36 [facility] Work [facility]: Platelets bldon 10-25-2021 Platelets (Bld) [#/Vol] 191 10*3/uL 150-450 [facility] Work Phone: [phone] Absolute lymphocyte counton 10-18-2021 Lymphocytes Auto (Unsp spec) [#/Vol] 1.66 10*3/uL 0.83-4.51 [facility] Work Phone: [phone] Basophil percentageon 2021 Basophils/100 WBC (Bld) 0.5 % 0-1 [facility] Work Phone: Eosinophils/100 WBC (Bld) 0.2 % 0-5 [facility] Work Phone: [phone] Neutrophils (Bld) [#/Vol] 4.3 10*3/uL 2.0-7.7 [facility] Work Phone: Neutrophils/100 WBC (Bld) 65.0 % 47-70 [facility] Work Phone: [phone] WBC (Bld) [#/Vol] 6.6 10*3/uL 4.4-11.0 [facility] Work Phone: Blood erythrocytes count (nu mber/volume)on 10-18-2021 RBC (Bld) [#/Vol] 4.57 10*6/uL 4.6-6.2 [facility] Work Phone: Blood hemoglobin measurement (mass/volume)on 10-18-2021 Hemoglobin (Bld) [Mass/Vol] 14.1 g/dL 13.0-16.5 [facility] Work Phone: [phone] Blood lymphocytes/100 leukoc yteson 10-18-2021 Lymphocytes/100 WBC (Bld) 25.2 % 19-41 [facility] Work Phone: Blood monocytes/100 leukocyt eson 10-18-2021 Monocytes/100 WBC (Bld) 8.8 % 0-10 [facility] Work Phone: [phone] Blood platelet mean volumeon 10-18-2021 Platelet mean volume (Bld) [Entitic vol] 10.6 fL 6.2-12.0 [facility] Work Phone: Determination of erythrocyte mean corpuscular volume (MCV)on 10-18-2021 MCV (RBC) [Entitic vol] 91.7 fL 80-94 [facility] Work Phone: Hematocrit Auto (Bld) [Volum e fraction]on 10-18-2021 Hematocrit (Bld) [Volume fraction] 41.9 % 40-54 [facility] Work Phone: Laboratory - Hematology and Cell countson 10-18-2021 Erythrocyte distribution width (RBC) [Entitic vol] 41.6 fL 35.1-43.9 [facility] Work Phone: Erythrocyte distribution width (RBC) [Ratio] 12.5 % 11.6-14.6 [facility] Work Phone: Immature granulocytes/100 WBC (Bld) 0.300 % 0.0-0.9 [facility] Work Phone: Comment on above: IG% - Immature Granu locytes (promyelocytes, myelocytes and metamyelocytes) > 1% indicates that a LEFT SHIFT is Present. MCH (RBC) [Entitic mass] 30.9 pg 27.0-32.0 [facility] Work Phone: Nucleated RBC/100 WBC (Bld) [Ratio] 0 % 0-5 [facility] Work Phone: MCHC Auto (RBC) [Mass/Vol]on 10-18-2021 MCHC (RBC) [Mass/Vol] 33.7 g/dL 32-36 [facility] Work Phone: Platelets bldon 10-18-2021 Platelets (Bld) [#/Vol] 185 10*3/uL 150-450 [facility] Work Phone: Absolute lymphocyte counton 10-11-2021 Lymphocytes Auto (Unsp spec) [#/Vol] 1.66 10*3/uL 0.83-4.51 [facility] Work Phone: Basophil percentageon 2021 Basophils/100 WBC (Bld) 0.5 % 0-1 [facility] Work Phone: Eosinophils/100 WBC (Bld) 0.1 % 0-5 [facility] Work Phone: Neutrophils (Bld) [#/Vol] 5.9 10*3/uL 2.0-7.7 [facility] Work Phone: Neutrophils/100 WBC (Bld) 70.8 % 47-70 [facility] Work Phone: WBC (Bld) [#/Vol] 8.3 10*3/uL 4.4-11.0 [facility] Work Phone: Blood erythrocytes count (nu mber/volume)on 10-11-2021 RBC (Bld) [#/Vol] 4.66 10*6/uL 4.6-6.2 [facility] Work [facility]: Blood hemoglobin measurement (mass/volume)on 10-11-2021 Hemoglobin (Bld) [Mass/Vol] 14.1 g/dL 13.0-16.5 [facility] Work Phone: Blood lymphocytes/100 leukoc yteson 10-11-2021 Lymphocytes/100 WBC (Bld) 20.0 % 19-41 [facility] Work Phone: Blood monocytes/100 leukocyt eson 10-11-2021 Monocytes/100 WBC (Bld) 8.2 % 0-10 [facility] Work Phone: Blood platelet mean volumeon 10-11-2021 Platelet mean volume (Bld) [Entitic vol] 10.7 fL 6.2-12.0 [facility] Work Phone: Determination of erythrocyte mean corpuscular volume (MCV)on 10-11-2021 MCV (RBC) [Entitic vol] 91.8 fL 80-94 [facility] Work Phone: Hematocrit Auto (Bld) [Volum e fraction]on 10-11-2021 Hematocrit (Bld) [Volume fraction] 42.8 % 40-54 [facility] Work Phone: Laboratory - Hematology and Cell countson 10-11-2021 Erythrocyte distribution width (RBC) [Entitic vol] 42.8 fL 35.1-43.9 [facility] Work Phone: Erythrocyte distribution width (RBC) [Ratio] 12.8 % 11.6-14.6 [facility] Work Phone: Immature granulocytes/100 WBC (Bld) 0.400 % 0.0-0.9 [facility] Work Phone: Comment on above: IG% - Immature Granu locytes (promyelocytes, myelocytes and metamyelocytes) > 1% indicates that a LEFT SHIFT is Present. MCH (RBC) [Entitic mass] 30.3 pg 27.0-32.0 [facility] Work Phone: Nucleated RBC/100 WBC (Bld) [Ratio] 0 % 0-5 [facility] Work Phone: MCHC Auto (RBC) [Mass/Vol]on 10-11-2021 MCHC (RBC) [Mass/Vol] 32.9 g/dL 32-36 [facility] Work Phone: Platelets bldon 10-11-2021 Platelets (Bld) [#/Vol] 193 10*3/uL 150-450 [facility] Work Phone: Absolute lymphocyte counton 10-04-2021 Lymphocytes Auto (Unsp spec) [#/Vol] 1.97 10*3/uL 0.83-4.51 [facility] Work Phone: Basophil percentageon 2021 Basophils/100 WBC (Bld) 0.5 % 0-1 [facility] Work Phone: Eosinophils/100 WBC (Bld) 0.1 % 0-5 [facility] Work Phone: Neutrophils (Bld) [#/Vol] 5.0 10*3/uL 2.0-7.7 [facility] Work Phone: Neutrophils/100 WBC (Bld) 64.4 % 47-70 [facility] Work Phone: WBC (Bld) [#/Vol] 7.7 10*3/uL 4.4-11.0 [facility]: Blood erythrocytes count (nu mber/volume)on 10-04-2021 RBC (Bld) [#/Vol] 4.52 10*6/uL 4.6-6.2 [facility] Work Phone: Blood hemoglobin measurement (mass/volume)on 10-04-2021 Hemoglobin (Bld) [Mass/Vol] 13.9 g/dL 13.0-16.5 [facility] Work Phone: Blood lymphocytes/100 leukoc yteson 10-04-2021 Lymphocytes/100 WBC (Bld) 25.6 % 19-41 [facility] Work Phone: Blood monocytes/100 leukocyt eson 10-04-2021 Monocytes/100 WBC (Bld) 9.0 % 0-10 [facility] Work Phone: Blood platelet mean volumeon 10-04-2021 Platelet mean volume (Bld) [Entitic vol] 11.0 fL 6.2-12.0 [facility] Work Phone: Determination of erythrocyte mean corpuscular volume (MCV)on 10-04-2021 MCV (RBC) [Entitic vol] 91.4 fL 80-94 [facility] Work Phone: Hematocrit Auto (Bld) [Volum e fraction]on 10-04-2021 Hematocrit (Bld) [Volume fraction] 41.3 % 40-54 [facility] Work Phone: Laboratory - Hematology and Cell countson 10-04-2021 Erythrocyte distribution width (RBC) [Entitic vol] 42.2 fL 35.1-43.9 [facility] Work Phone: Erythrocyte distribution width (RBC) [Ratio] 12.8 % 11.6-14.6 [facility] Work Phone: Immature granulocytes/100 WBC (Bld) 0.400 % 0.0-0.9 [facility] Work Phone: Comment on above: IG% - Immature Granu locytes (promyelocytes, myelocytes and metamyelocytes) > 1% indicates that a LEFT SHIFT is Present. MCH (RBC) [Entitic mass] 30.8 pg 27.0-32.0 [facility] Work Phone: Nucleated RBC/100 WBC (Bld) [Ratio] 0 % 0-5 [facility] Work Phone: MCHC Auto (RBC) [Mass/Vol]on 10-04-2021 MCHC (RBC) [Mass/Vol] 33.7 g/dL 32-36 [facility] Work [facility]: Platelets bldon 10-04-2021 Platelets (Bld) [#/Vol] 179 10*3/uL 150-450 [facility] Work Phone: Absolute lymphocyte counton 09-28-2021 Lymphocytes Auto (Unsp spec) [#/Vol] 2.10 10*3/uL 0.83-4.51 [facility] Work Phone: Basophil percentageon 2021 Basophils/100 WBC (Bld) 0.4 % 0-1 [facility] Work Phone: Eosinophils/100 WBC (Bld) 0.3 % 0-5 [facility] Work Phone: Neutrophils (Bld) [#/Vol] 4.3 10*3/uL 2.0-7.7 [facility] Work Phone: Neutrophils/100 WBC (Bld) 59.9 % 47-70 [facility] Work Phone: WBC (Bld) [#/Vol] 7.2 10*3/uL 4.4-11.0 [facility] Work Phone: Blood erythrocytes count (nu mber/volume)on 09-28-2021 RBC (Bld) [#/Vol] 4.34 10*6/uL 4.6-6.2 [facility] Work Phone: Blood hemoglobin measurement (mass/volume)on 09-28-2021 Hemoglobin (Bld) [Mass/Vol] 13.3 g/dL 13.0-16.5 [facility] Work Phone: Blood lymphocytes/100 leukoc yteson 09-28-2021 Lymphocytes/100 WBC (Bld) 29.3 % 19-41 [facility] Work Phone: Blood monocytes/100 leukocyt eson 09-28-2021 Monocytes/100 WBC (Bld) 9.8 % 0-10 [facility] Work Phone: Blood platelet mean volumeon 09-28-2021 Platelet mean volume (Bld) [Entitic vol] 10.7 fL 6.2-12.0 [facility] Work Phone: Determination of erythrocyte mean corpuscular volume (MCV)on 09-28-2021 MCV (RBC) [Entitic vol] 91.2 fL 80-94 [facility] Work Phone: Hematocrit Auto (Bld) [Volum e fraction]on 09-28-2021 Hematocrit (Bld) [Volume fraction] 39.6 % 40-54 [facility] Work Phone: Laboratory - Hematology and Cell countson 09-28-2021 Erythrocyte distribution width (RBC) [Entitic vol] 41.8 fL 35.1-43.9 [facility] Work Phone: Erythrocyte distribution width (RBC) [Ratio] 12.6 % 11.6-14.6 [facility] Work Phone: Immature granulocytes/100 WBC (Bld) 0.300 % 0.0-0.9 [facility] Work Phone: Comment on above: IG% - Immature Granu locytes (promyelocytes, myelocytes and metamyelocytes) > 1% indicates that a LEFT SHIFT is Present. MCH (RBC) [Entitic mass] 30.6 pg 27.0-32.0 [facility] Work Phone: Nucleated RBC/100 WBC (Bld) [Ratio] 0 % 0-5 [facility] Work Phone: MCHC Auto (RBC) [Mass/Vol]on 09-28-2021 MCHC (RBC) [Mass/Vol] 33.6 g/dL 32-36 [facility] Work Phone: Platelets bldon 09-28-2021 Platelets (Bld) [#/Vol] 181 10*3/uL 150-450 [facility] Work Phone: Absolute lymphocyte counton 09-20-2021 Lymphocytes Auto (Unsp spec) [#/Vol] 1.79 10*3/uL 0.83-4.51 [facility] Work Phone: Basophil percentageon 2021 Basophils/100 WBC (Bld) 0.4 % 0-1 [facility] Work Phone: Eosinophils/100 WBC (Bld) 0.3 % 0-5 [facility] Work Phone: Neutrophils (Bld) [#/Vol] 4.1 10*3/uL 2.0-7.7 [facility] Work Phone: Neutrophils/100 WBC (Bld) 61.3 % 47-70 [facility] Work Phone: WBC (Bld) [#/Vol] 6.7 10*3/uL 4.4-11.0 [facility] Work Phone: Blood erythrocytes count (nu mber/volume)on 09-20-2021 RBC (Bld) [#/Vol] 4.32 10*6/uL 4.6-6.2 [facility] Work Phone: Blood hemoglobin measurement (mass/volume)on 09-20-2021 Hemoglobin (Bld) [Mass/Vol] 13.6 g/dL 13.0-16.5 [facility] Work Phone: Blood lymphocytes/100 leukoc yteson 09-20-2021 Lymphocytes/100 WBC (Bld) 26.8 % 19-41 [facility] Work Phone: Blood monocytes/100 leukocyt eson 09-20-2021 Monocytes/100 WBC (Bld) 10.8 % 0-10 [facility] Work Phone: Blood platelet mean volumeon 09-20-2021 Platelet mean volume (Bld) [Entitic vol] 10.7 fL 6.2-12.0 [facility] Work Phone: Determination of erythrocyte mean corpuscular volume (MCV)on 09-20-2021 MCV (RBC) [Entitic vol] 93.1 fL 80-94 [facility] Work Phone: Hematocrit Auto (Bld) [Volum e fraction]on 09-20-2021 Hematocrit (Bld) [Volume fraction] 40.2 % 40-54 [facility] Work Phone: Laboratory - Hematology and Cell countson 09-20-2021 Erythrocyte distribution width (RBC) [Entitic vol] 43.0 fL 35.1-43.9 [facility] Work Phone: Erythrocyte distribution width (RBC) [Ratio] 12.6 % 11.6-14.6 [facility] Work Phone: Immature granulocytes/100 WBC (Bld) 0.400 % 0.0-0.9 [facility] Work Phone: Comment on above: IG% - Immature Granu locytes (promyelocytes, myelocytes and metamyelocytes) > 1% indicates that a LEFT SHIFT is Present. MCH (RBC) [Entitic mass] 31.5 pg 27.0-32.0 [facility] Work Phone: Nucleated RBC/100 WBC (Bld) [Ratio] 0 % 0-5 [facility] Work Phone: MCHC Auto (RBC) [Mass/Vol]on 09-20-2021 MCHC (RBC) [Mass/Vol] 33.8 g/dL 32-36 [facility] Work Phone: Platelets bldon 09-20-2021 Platelets (Bld) [#/Vol] 170 10*3/uL 150-450 [facility] Work Phone: [phone] Absolute lymphocyte counton 09-13-2021 Lymphocytes Auto (Unsp spec) [#/Vol] 1.85 10*3/uL 0.83-4.51 [facility] Work Phone: Basophil percentageon 2021 Basophils/100 WBC (Bld) 0.6 % 0-1 [facility] Work Phone: Eosinophils/100 WBC (Bld) 0.3 % 0-5 [facility] Work Phone: Neutrophils (Bld) [#/Vol] 4.3 10*3/uL 2.0-7.7 [facility] Work Phone: Neutrophils/100 WBC (Bld) 63.1 % 47-70 [facility] Work Phone: WBC (Bld) [#/Vol] 6.7 10*3/uL 4.4-11.0 [facility] Work Phone: Blood erythrocytes count (nu mber/volume)on 09-13-2021 RBC (Bld) [#/Vol] 4.63 10*6/uL 4.6-6.2 [facility] Work Phone: Blood hemoglobin measurement (mass/volume)on 09-13-2021 Hemoglobin (Bld) [Mass/Vol] 14.2 g/dL 13.0-16.5 [facility] Work Phone: [phone] Blood lymphocytes/100 leukoc yteson 09-13-2021 Lymphocytes/100 WBC (Bld) 27.5 % 19-41 [facility] Work Phone: Blood monocytes/100 leukocyt eson 09-13-2021 Monocytes/100 WBC (Bld) 8.2 % 0-10 [facility] Work Phone: Blood platelet mean volumeon 09-13-2021 Platelet mean volume (Bld) [Entitic vol] 11.0 fL 6.2-12.0 [facility] Work Phone: Determination of erythrocyte mean corpuscular volume (MCV)on 09-13-2021 MCV (RBC) [Entitic vol] 93.5 fL 80-94 [facility] Work Phone: Hematocrit Auto (Bld) [Volum e fraction]on 09-13-2021 Hematocrit (Bld) [Volume fraction] 43.3 % 40-54 [facility] Work Phone: Laboratory - Hematology and Cell countson 09-13-2021 Erythrocyte distribution width (RBC) [Entitic vol] 43.0 fL 35.1-43.9 [facility] Work Phone: Erythrocyte distribution width (RBC) [Ratio] 12.6 % 11.6-14.6 [facility] Work Phone: Immature granulocytes/100 WBC (Bld) 0.300 % 0.0-0.9 [facility] Work Phone: Comment on above: IG% - Immature Granu locytes (promyelocytes, myelocytes and metamyelocytes) > 1% indicates that a LEFT SHIFT is Present. MCH (RBC) [Entitic mass] 30.7 pg 27.0-32.0 [facility] Work Phone: Nucleated RBC/100 WBC (Bld) [Ratio] 0 % 0-5 [facility] Work Phone: MCHC Auto (RBC) [Mass/Vol]on 09-13-2021 MCHC (RBC) [Mass/Vol] 32.8 g/dL 32-36 [facility] Work Phone: [phone] Platelets bldon 09-13-2021 Platelets (Bld) [#/Vol] 188 10*3/uL 150-450 [facility] Work Phone: [phone] Absolute lymphocyte counton 09-06-2021 Lymphocytes Auto (Unsp spec) [#/Vol] 1.86 10*3/uL 0.83-4.51 [facility] Work Phone: [phone] Basophil percentageon 2021 Basophils/100 WBC (Bld) 0.7 % 0-1 [facility] Work Phone: [phone] Eosinophils/100 WBC (Bld) 0.3 % 0-5 [facility] Work Phone: [phone] Neutrophils (Bld) [#/Vol] 4.4 10*3/uL 2.0-7.7 [facility] Work Phone: Neutrophils/100 WBC (Bld) 62.6 % 47-70 [facility] Work Phone: [phone] WBC (Bld) [#/Vol] 7.0 10*3/uL 4.4-11.0 [facility] Work Phone: Blood erythrocytes count (nu mber/volume)on 09-06-2021 RBC (Bld) [#/Vol] 4.51 10*6/uL 4.6-6.2 [facility] Work Phone: Blood hemoglobin measurement (mass/volume)on 09-06-2021 Hemoglobin (Bld) [Mass/Vol] 13.8 g/dL 13.0-16.5 [facility] Work Phone: [phone] Blood lymphocytes/100 leukoc yteson 09-06-2021 Lymphocytes/100 WBC (Bld) 26.5 % 19-41 [facility] Work Phone: [phone] Blood monocytes/100 leukocyt eson 09-06-2021 Monocytes/100 WBC (Bld) 9.5 % 0-10 [facility] Work Phone: Blood platelet mean volumeon 09-06-2021 Platelet mean volume (Bld) [Entitic vol] 10.7 fL 6.2-12.0 [facility] Work Phone: Determination of erythrocyte mean corpuscular volume (MCV)on 09-06-2021 MCV (RBC) [Entitic vol] 92.9 fL 80-94 [facility] Work Phone: Hematocrit Auto (Bld) [Volum e fraction]on 09-06-2021 Hematocrit (Bld) [Volume fraction] 41.9 % 40-54 [facility] Work Phone: Laboratory - Hematology and Cell countson 09-06-2021 Erythrocyte distribution width (RBC) [Entitic vol] 43.0 fL 35.1-43.9 [facility] Work Phone: Erythrocyte distribution width (RBC) [Ratio] 12.7 % 11.6-14.6 [facility] Work Phone: Immature granulocytes/100 WBC (Bld) 0.400 % 0.0-0.9 [facility] Work Phone: Comment on above: IG% - Immature Granu locytes (promyelocytes, myelocytes and metamyelocytes) > 1% indicates that a LEFT SHIFT is Present. MCH (RBC) [Entitic mass] 30.6 pg 27.0-32.0 [facility] Work Phone: Nucleated RBC/100 WBC (Bld) [Ratio] 0 % 0-5 [facility] Work Phone: MCHC Auto (RBC) [Mass/Vol]on 09-06-2021 MCHC (RBC) [Mass/Vol] 32.9 g/dL 32-36 [facility] Work Phone: Platelets bldon 09-06-2021 Platelets (Bld) [#/Vol] 189 10*3/uL 150-450 [facility] Work Phone: Absolute lymphocyte counton 05-02-2022 Lymphocytes Auto (Unsp spec) [#/Vol] 1.44 10*3/uL 0.83-4.51 [facility] Work Phone: Basophil percentageon 2021 Basophils/100 WBC (Bld) 0.3 % 0-1 [facility] Work Phone: Eosinophils/100 WBC (Bld) 0.2 % 0-5 [facility] Work Phone: Neutrophils (Bld) [#/Vol] 9.6 10*3/uL 2.0-7.7 [facility] Work Phone: [phone] Neutrophils/100 WBC (Bld) 80.4 % 47-70 [facility] Work Phone: WBC (Bld) [#/Vol] 12.0 10*3/uL 4.4-11.0 [facility] Work Phone: Blood erythrocytes count (nu mber/volume)on 08-30-2021 RBC (Bld) [#/Vol] 4.52 10*6/uL 4.6-6.2 [facility] Work Phone: Blood hemoglobin measurement (mass/volume)on 08-30-2021 Hemoglobin (Bld) [Mass/Vol] 13.9 g/dL 13.0-16.5 [facility] Work Phone: Blood lymphocytes/100 leukoc yteson 08-30-2021 Lymphocytes/100 WBC (Bld) 12.0 % 19-41 [facility] Work Phone: Blood monocytes/100 leukocyt eson 08-30-2021 Monocytes/100 WBC (Bld) 6.7 % 0-10 [facility] Work Phone: Blood platelet mean volumeon 08-30-2021 Platelet mean volume (Bld) [Entitic vol] 11.3 fL 6.2-12.0 [facility] Work Phone: Determination of erythrocyte mean corpuscular volume (MCV)on 08-30-2021 MCV (RBC) [Entitic vol] 92.7 fL 80-94 [facility] Work Phone: Hematocrit Auto (Bld) [Volum e fraction]on 08-30-2021 Hematocrit (Bld) [Volume fraction] 41.9 % 40-54 [facility] Work Phone: Laboratory - Hematology and Cell countson 08-30-2021 Erythrocyte distribution width (RBC) [Entitic vol] 42.6 fL 35.1-43.9 [facility] Work Phone: Erythrocyte distribution width (RBC) [Ratio] 12.6 % 11.6-14.6 [facility] Work Phone: Immature granulocytes/100 WBC (Bld) 0.400 % 0.0-0.9 [facility] Work Phone: Comment on above: IG% - Immature Granu locytes (promyelocytes, myelocytes and metamyelocytes) > 1% indicates that a LEFT SHIFT is Present. MCH (RBC) [Entitic mass] 30.8 pg 27.0-32.0 [facility] Work Phone: Nucleated RBC/100 WBC (Bld) [Ratio] 0 % 0-5 [facility] Work Phone: MCHC Auto (RBC) [Mass/Vol]on 08-30-2021 MCHC (RBC) [Mass/Vol] 33.2 g/dL 32-36 [facility] Work Phone: Platelets bldon 08-30-2021 Platelets (Bld) [#/Vol] 200 10*3/uL 150-450 [facility] Work Phone: Absolute lymphocyte counton 08-23-2021 Lymphocytes Auto (Unsp spec) [#/Vol] 1.91 10*3/uL 0.83-4.51 [facility] Work Phone: [phone] Basophil percentageon 2021 Basophils/100 WBC (Bld) 0.4 % 0-1 [facility] Work Phone: Eosinophils/100 WBC (Bld) 0.3 % 0-5 [facility] Work Phone: Neutrophils (Bld) [#/Vol] 4.2 10*3/uL 2.0-7.7 [facility] Work Phone: Neutrophils/100 WBC (Bld) 62.3 % 47-70 [facility] Work Phone: WBC (Bld) [#/Vol] 6.8 10*3/uL 4.4-11.0 [facility] Work [facility]: Blood erythrocytes count (nu mber/volume)on 08-23-2021 RBC (Bld) [#/Vol] 4.46 10*6/uL 4.6-6.2 [facility] Work Phone: Blood hemoglobin measurement (mass/volume)on 08-23-2021 Hemoglobin (Bld) [Mass/Vol] 13.7 g/dL 13.0-16.5 [facility] Work Phone: Blood lymphocytes/100 leukoc yteson 08-23-2021 Lymphocytes/100 WBC (Bld) 28.3 % 19-41 [facility] Work Phone: Blood monocytes/100 leukocyt eson 08-23-2021 Monocytes/100 WBC (Bld) 8.1 % 0-10 [facility] Work Phone: Blood platelet mean volumeon 08-23-2021 Platelet mean volume (Bld) [Entitic vol] 10.6 fL 6.2-12.0 [facility] Work Phone: Determination of erythrocyte mean corpuscular volume (MCV)on 08-23-2021 MCV (RBC) [Entitic vol] 93.0 fL 80-94 [facility] Work Phone: Hematocrit Auto (Bld) [Volum e fraction]on 08-23-2021 Hematocrit (Bld) [Volume fraction] 41.5 % 40-54 [facility] Work Phone: Laboratory - Hematology and Cell countson 08-23-2021 Erythrocyte distribution width (RBC) [Entitic vol] 42.4 fL 35.1-43.9 [facility] Work Phone: Erythrocyte distribution width (RBC) [Ratio] 12.5 % 11.6-14.6 [facility] Work Phone: Immature granulocytes/100 WBC (Bld) 0.600 % 0.0-0.9 [facility] Work Phone: Comment on above: IG% - Immature Granu locytes (promyelocytes, myelocytes and metamyelocytes) > 1% indicates that a LEFT SHIFT is Present. MCH (RBC) [Entitic mass] 30.7 pg 27.0-32.0 [facility] Work Phone: Nucleated RBC/100 WBC (Bld) [Ratio] 0 % 0-5 [facility] Work Phone: MCHC Auto (RBC) [Mass/Vol]on 08-23-2021 MCHC (RBC) [Mass/Vol] 33.0 g/dL 32-36 [facility] Work Phone: Platelets bldon 08-23-2021 Platelets (Bld) [#/Vol] 198 10*3/uL 150-450 [facility] Work Phone: Basophil percentageon 2021 Basophil percentage 0 SEEN /hpf 0-5 [facility] Work Phone: Bilirubin Test strip Ql (U)o n 08-18-2021 Bilirubin Ql (U) Negative Negative [facility] Work Phone: Culture, urineon 08-18-2021 Bacteria identified Cx Nom (U) Culture exhibits no growth. [facility] Work Phone: Ketones Test strip Ql (U)on 08-18-2021 Ketones Ql (U) Negative Negative [facility] Work Phone: Mucus LM Ql (Urine sed)on Mucus Ql (Urine sed) 0 SEEN /hpf [facility] Work Phone: Nitrite Test strip Ql (U)on 08-18-2021 Nitrite Ql (U) Negative Negative [facility] Work Phone: Protein Test strip Ql (U)on 08-18-2021 Protein Ql (U) Negative Negative [facility] Work Phone: Squamous epithelial cells de tection in urine sediment by light microscopyon 08-18-2021 Epithelial cells.squamous LM Ql (Urine sed) 0 SEEN /hpf 0-5 [facility] Work Phone: Urine blood detectionon - RBC Ql (U) Negative Negative [facility] Work Phone: RBC Ql (U) 0 SEEN /hpf 0-5 [facility] Work Phone: Urine clarityon 08-18-2021 Clarity (U) Clear Clear [facility] Work Phone: Urine color determinationon 08-18-2021 Color (U) Yellow Yellow [facility] Work Phone: Urine glucose detectionon Glucose Ql (U) Normal mg/dl Normal [facility] Work Phone: Urine leukocyte esterase det ection by dipstickon 08-18-2021 Leukocyte esterase Test strip Ql (U) Negative Negative [facility] Work Phone: Urine pHon 08-18-2021 pH (U) 7.0 [pH] 5.0 - 8.0 [facility] Work Phone: Urine sediment bacteria coun t by microscopy (number/high power field)on 08-18-2021 Bacteria LM.HPF (Urine sed) [#/Area] 0 /[HPF] None Seen [facility] Work Phone: Urine specific gravity measu rementon 08-18-2021 Specific gravity (U) [Rel density] 1.010 1.002-1.030 [facility] Work Phone: Urobilinogen Auto test strip Ql (U)on 08-18-2021 Urobilinogen Ql (U) 4 mg/dl Normal [facility] Work Phone: Absolute lymphocyte counton 08-16-2021 Lymphocytes Auto (Unsp spec) [#/Vol] 1.71 10*3/uL 0.83-4.51 [facility] Work Phone: Basophil percentageon 2021 Basophils/100 WBC (Bld) 0.3 % 0-1 [facility] Work Phone: [phone] Eosinophils/100 WBC (Bld) 0.2 % 0-5 [facility] Work Phone: Neutrophils (Bld) [#/Vol] 8.6 10*3/uL 2.0-7.7 [facility] Work Phone: Neutrophils/100 WBC (Bld) 76.8 % 47-70 [facility] Work Phone: WBC (Bld) [#/Vol] 11.2 10*3/uL 4.4-11.0 [facility] Work Phone: Blood erythrocytes count (nu mber/volume)on 08-16-2021 RBC (Bld) [#/Vol] 4.42 10*6/uL 4.6-6.2 [facility] Work Phone: Blood hemoglobin measurement (mass/volume)on 08-16-2021 Hemoglobin (Bld) [Mass/Vol] 13.4 g/dL 13.0-16.5 [facility] Work Phone: [phone] Blood lymphocytes/100 leukoc yteson 08-16-2021 Lymphocytes/100 WBC (Bld) 15.2 % 19-41 [facility] Work Phone: Blood monocytes/100 leukocyt eson 08-16-2021 Monocytes/100 WBC (Bld) 7.1 % 0-10 [facility] Work Phone: Blood platelet mean volumeon 08-16-2021 Platelet mean volume (Bld) [Entitic vol] 11.0 fL 6.2-12.0 [facility] Work Phone: Determination of erythrocyte mean corpuscular volume (MCV)on 08-16-2021 MCV (RBC) [Entitic vol] 91.9 fL 80-94 [facility] Work Phone: Hematocrit Auto (Bld) [Volum e fraction]on 08-16-2021 Hematocrit (Bld) [Volume fraction] 40.6 % 40-54 [facility] Work Phone: Laboratory - Hematology and Cell countson 08-16-2021 Erythrocyte distribution width (RBC) [Entitic vol] 43.0 fL 35.1-43.9 [facility] Work Phone: Erythrocyte distribution width (RBC) [Ratio] 12.7 % 11.6-14.6 [facility] Work Phone: Immature granulocytes/100 WBC (Bld) 0.400 % 0.0-0.9 [facility] Work Phone: Comment on above: IG% - Immature Granu locytes (promyelocytes, myelocytes and metamyelocytes) > 1% indicates that a LEFT SHIFT is Present. MCH (RBC) [Entitic mass] 30.3 pg 27.0-32.0 [facility] Work Phone: Nucleated RBC/100 WBC (Bld) [Ratio] 0 % 0-5 [facility] Work Phone: MCHC Auto (RBC) [Mass/Vol]on 08-16-2021 MCHC (RBC) [Mass/Vol] 33.0 g/dL 32-36 [facility] Work Phone: Platelets bldon 08-16-2021 Platelets (Bld) [#/Vol] 187 10*3/uL 150-450 [facility] Work Phone: Absolute lymphocyte counton 08-09-2021 Lymphocytes Auto (Unsp spec) [#/Vol] 1.78 10*3/uL 0.83-4.51 [facility] Work Phone: Basophil percentageon 2021 Basophils/100 WBC (Bld) 0.5 % 0-1 [facility] Work Phone: Eosinophils/100 WBC (Bld) 0.1 % 0-5 [facility] Work Phone: Neutrophils (Bld) [#/Vol] 6.0 10*3/uL 2.0-7.7 [facility] Work Phone: Neutrophils/100 WBC (Bld) 71.3 % 47-70 [facility] Work Phone: WBC (Bld) [#/Vol] 8.4 10*3/uL 4.4-11.0 [facility] Work Phone: Blood erythrocytes count (nu mber/volume)on 08-09-2021 RBC (Bld) [#/Vol] 4.37 10*6/uL 4.6-6.2 [facility] Work [facility]: Blood hemoglobin measurement (mass/volume)on 08-09-2021 Hemoglobin (Bld) [Mass/Vol] 13.5 g/dL 13.0-16.5 [facility] Work Phone: Blood lymphocytes/100 leukoc yteson 08-09-2021 Lymphocytes/100 WBC (Bld) 21.2 % 19-41 [facility] Work Phone: Blood monocytes/100 leukocyt eson 08-09-2021 Monocytes/100 WBC (Bld) 6.5 % 0-10 [facility] Work Phone: Blood platelet mean volumeon 08-09-2021 Platelet mean volume (Bld) [Entitic vol] 11.1 fL 6.2-12.0 [facility] Work Phone: Determination of erythrocyte mean corpuscular volume (MCV)on 08-09-2021 MCV (RBC) [Entitic vol] 91.3 fL 80-94 [facility] Work Phone: Hematocrit Auto (Bld) [Volum e fraction]on 08-09-2021 Hematocrit (Bld) [Volume fraction] 39.9 % 40-54 [facility] Work Phone: Laboratory - Hematology and Cell countson 08-09-2021 Erythrocyte distribution width (RBC) [Entitic vol] 41.4 fL 35.1-43.9 [facility] Work Phone: Erythrocyte distribution width (RBC) [Ratio] 12.5 % 11.6-14.6 [facility] Work Phone: Immature granulocytes/100 WBC (Bld) 0.400 % 0.0-0.9 [facility] Work Phone: Comment on above: IG% - Immature Granu locytes (promyelocytes, myelocytes and metamyelocytes) > 1% indicates that a LEFT SHIFT is Present. MCH (RBC) [Entitic mass] 30.9 pg 27.0-32.0 [facility] Work Phone: Nucleated RBC/100 WBC (Bld) [Ratio] 0 % 0-5 [facility] Work Phone: MCHC Auto (RBC) [Mass/Vol]on 08-09-2021 MCHC (RBC) [Mass/Vol] 33.8 g/dL 32-36 [facility] Work Phone: Platelets bldon 08-09-2021 Platelets (Bld) [#/Vol] 177 10*3/uL 150-450 [facility] Work Phone: Absolute lymphocyte counton 08-02-2021 Lymphocytes Auto (Unsp spec) [#/Vol] 1.69 10*3/uL 0.83-4.51 [facility] Work Phone: Basophil percentageon 2021 Basophils/100 WBC (Bld) 0.3 % 0-1 [facility] Work Phone: [phone] Eosinophils/100 WBC (Bld) 0.3 % 0-5 [facility] Work Phone: Neutrophils (Bld) [#/Vol] 3.8 10*3/uL 2.0-7.7 [facility] Work Phone: Neutrophils/100 WBC (Bld) 61.9 % 47-70 [facility] Work Phone: WBC (Bld) [#/Vol] 6.1 10*3/uL 4.4-11.0 [facility] Work Phone: Blood erythrocytes count (nu mber/volume)on 08-02-2021 RBC (Bld) [#/Vol] 4.54 10*6/uL 4.6-6.2 [facility] Work Phone: Blood hemoglobin measurement (mass/volume)on 08-02-2021 Hemoglobin (Bld) [Mass/Vol] 13.8 g/dL 13.0-16.5 [facility] Work Phone: Blood lymphocytes/100 leukoc yteson 08-02-2021 Lymphocytes/100 WBC (Bld) 27.7 % 19-41 [facility] Work Phone: Blood monocytes/100 leukocyt eson 08-02-2021 Monocytes/100 WBC (Bld) 9.5 % 0-10 [facility] Work Phone: Blood platelet mean volumeon 08-02-2021 Platelet mean volume (Bld) [Entitic vol] 11.2 fL 6.2-12.0 [facility] Work Phone: Determination of erythrocyte mean corpuscular volume (MCV)on 08-02-2021 MCV (RBC) [Entitic vol] 90.1 fL 80-94 [facility] Work Phone: Hematocrit Auto (Bld) [Volum e fraction]on 08-02-2021 Hematocrit (Bld) [Volume fraction] 40.9 % 40-54 [facility] Work Phone: Laboratory - Hematology and Cell countson 08-02-2021 Erythrocyte distribution width (RBC) [Entitic vol] 40.3 fL 35.1-43.9 [facility] Work Phone: Erythrocyte distribution width (RBC) [Ratio] 12.4 % 11.6-14.6 [facility] Work Phone: Immature granulocytes/100 WBC (Bld) 0.300 % 0.0-0.9 [facility] Work Phone: Comment on above: IG% - Immature Granu locytes (promyelocytes, myelocytes and metamyelocytes) > 1% indicates that a LEFT SHIFT is Present. MCH (RBC) [Entitic mass] 30.4 pg 27.0-32.0 [facility] Work Phone: Nucleated RBC/100 WBC (Bld) [Ratio] 0 % 0-5 [facility] Work Phone: [phone] MCHC Auto (RBC) [Mass/Vol]on 08-02-2021 MCHC (RBC) [Mass/Vol] 33.7 g/dL 32-36 [facility] Work Phone: Platelets bldon 08-02-2021 Platelets (Bld) [#/Vol] 192 10*3/uL 150-450 [facility] Work Phone: Absolute lymphocyte counton 07-26-2021 Lymphocytes Auto (Unsp spec) [#/Vol] 1.83 10*3/uL 0.83-4.51 [facility] Work Phone: Basophil percentageon 2021 Basophils/100 WBC (Bld) 0.5 % 0-1 [facility] Work Phone: Eosinophils/100 WBC (Bld) 0.3 % 0-5 [facility] Work Phone: Neutrophils (Bld) [#/Vol] 3.3 10*3/uL 2.0-7.7 [facility] Work Phone: Neutrophils/100 WBC (Bld) 58.1 % 47-70 [facility] Work Phone: WBC (Bld) [#/Vol] 5.7 10*3/uL 4.4-11.0 [facility]: Blood erythrocytes count (nu mber/volume)on 07-26-2021 RBC (Bld) [#/Vol] 4.21 10*6/uL 4.6-6.2 [facility] Work Phone: Blood hemoglobin measurement (mass/volume)on 07-26-2021 Hemoglobin (Bld) [Mass/Vol] 12.9 g/dL 13.0-16.5 [facility] Work Phone: Blood lymphocytes/100 leukoc yteson 07-26-2021 Lymphocytes/100 WBC (Bld) 31.9 % 19-41 [facility] Work Phone: Blood monocytes/100 leukocyt eson 07-26-2021 Monocytes/100 WBC (Bld) 8.9 % 0-10 [facility] Work Phone: Blood platelet mean volumeon 07-26-2021 Platelet mean volume (Bld) [Entitic vol] 11.5 fL 6.2-12.0 [facility] Work Phone: Determination of erythrocyte mean corpuscular volume (MCV)on 07-26-2021 MCV (RBC) [Entitic vol] 90.7 fL 80-94 [facility] Work Phone: Hematocrit Auto (Bld) [Volum e fraction]on 07-26-2021 Hematocrit (Bld) [Volume fraction] 38.2 % 40-54 [facility] Work Phone: Laboratory - Hematology and Cell countson 07-26-2021 Erythrocyte distribution width (RBC) [Entitic vol] 41.2 fL 35.1-43.9 [facility] Work Phone: Erythrocyte distribution width (RBC) [Ratio] 12.5 % 11.6-14.6 [facility] Work Phone: Immature granulocytes/100 WBC (Bld) 0.300 % 0.0-0.9 [facility] Work Phone: Comment on above: IG% - Immature Granu locytes (promyelocytes, myelocytes and metamyelocytes) > 1% indicates that a LEFT SHIFT is Present. MCH (RBC) [Entitic mass] 30.6 pg 27.0-32.0 [facility] Work Phone: Nucleated RBC/100 WBC (Bld) [Ratio] 0 % 0-5 [facility] Work Phone: MCHC Auto (RBC) [Mass/Vol]on 07-26-2021 MCHC (RBC) [Mass/Vol] 33.8 g/dL 32-36 [facility] Work Phone: Platelets bldon 07-26-2021 Platelets (Bld) [#/Vol] 180 10*3/uL 150-450 [facility] Work Phone: [phone] Absolute lymphocyte counton 07-19-2021 Lymphocytes Auto (Unsp spec) [#/Vol] 2.04 10*3/uL 0.83-4.51 [facility] Work Phone: Basophil percentageon 2021 Basophils/100 WBC (Bld) 0.3 % 0-1 [facility] Work Phone: Eosinophils/100 WBC (Bld) 0.4 % 0-5 [facility] Work Phone: Neutrophils (Bld) [#/Vol] 4.0 10*3/uL 2.0-7.7 [facility] Work Phone: Neutrophils/100 WBC (Bld) 59.2 % 47-70 [facility] Work Phone: WBC (Bld) [#/Vol] 6.7 10*3/uL 4.4-11.0 [facility] Work Phone: [phone] Blood erythrocytes count (nu mber/volume)on 07-19-2021 RBC (Bld) [#/Vol] 4.53 10*6/uL 4.6-6.2 [facility] Work Phone: Blood hemoglobin measurement (mass/volume)on 07-19-2021 Hemoglobin (Bld) [Mass/Vol] 14.1 g/dL 13.0-16.5 [facility] Work Phone: Blood lymphocytes/100 leukoc yteson 07-19-2021 Lymphocytes/100 WBC (Bld) 30.5 % 19-41 [facility] Work Phone: Blood monocytes/100 leukocyt eson 07-19-2021 Monocytes/100 WBC (Bld) 9.0 % 0-10 [facility] Work Phone: Blood platelet mean volumeon 07-19-2021 Platelet mean volume (Bld) [Entitic vol] 11.4 fL 6.2-12.0 [facility] Work Phone: Determination of erythrocyte mean corpuscular volume (MCV)on 07-19-2021 MCV (RBC) [Entitic vol] 90.5 fL 80-94 [facility] Work Phone: Hematocrit Auto (Bld) [Volum e fraction]on 07-19-2021 Hematocrit (Bld) [Volume fraction] 41.0 % 40-54 [facility] Work Phone: Laboratory - Hematology and Cell countson 07-19-2021 Erythrocyte distribution width (RBC) [Entitic vol] 41.1 fL 35.1-43.9 [facility] Work Phone: Erythrocyte distribution width (RBC) [Ratio] 12.5 % 11.6-14.6 [facility] Work Phone: Immature granulocytes/100 WBC (Bld) 0.600 % 0.0-0.9 [facility] Work Phone: Comment on above: IG% - Immature Granu locytes (promyelocytes, myelocytes and metamyelocytes) > 1% indicates that a LEFT SHIFT is Present. MCH (RBC) [Entitic mass] 31.1 pg 27.0-32.0 [facility] Work Phone: Nucleated RBC/100 WBC (Bld) [Ratio] 0 % 0-5 [facility] Work Phone: [phone] MCHC Auto (RBC) [Mass/Vol]on 07-19-2021 MCHC (RBC) [Mass/Vol] 34.4 g/dL 32-36 [facility] Work Phone: [phone] Platelets bldon 07-19-2021 Platelets (Bld) [#/Vol] 193 10*3/uL 150-450 [facility] Work Phone: [phone] Absolute lymphocyte counton 07-12-2021 Lymphocytes Auto (Unsp spec) [#/Vol] 1.42 10*3/uL 0.83-4.51 [facility] Work Phone: [phone] Basophil percentageon 2021 Basophils/100 WBC (Bld) 0.6 % 0-1 [facility] Work Phone: [phone] Eosinophils/100 WBC (Bld) 0.3 % 0-5 [facility] Work Phone: [phone] Neutrophils (Bld) [#/Vol] 4.7 10*3/uL 2.0-7.7 [facility] Work Phone: [phone] Neutrophils/100 WBC (Bld) 67.3 % 47-70 [facility] Work Phone: [phone] WBC (Bld) [#/Vol] 7.0 10*3/uL 4.4-11.0 [facility] Work Phone: [phone] Blood erythrocytes count (nu mber/volume)on 07-12-2021 RBC (Bld) [#/Vol] 4.61 10*6/uL 4.6-6.2 [facility] Work Phone: [phone] Blood hemoglobin measurement (mass/volume)on 07-12-2021 Hemoglobin (Bld) [Mass/Vol] 14.4 g/dL 13.0-16.5 [facility] Work Phone: [phone] Blood lymphocytes/100 leukoc yteson 07-12-2021 Lymphocytes/100 WBC (Bld) 20.4 % 19-41 [facility] Work Phone: Blood monocytes/100 leukocyt eson 07-12-2021 Monocytes/100 WBC (Bld) 11.1 % 0-10 [facility] Work Phone: Blood platelet mean volumeon 07-12-2021 Platelet mean volume (Bld) [Entitic vol] 11.2 fL 6.2-12.0 [facility] Work Phone: Determination of erythrocyte mean corpuscular volume (MCV)on 07-12-2021 MCV (RBC) [Entitic vol] 91.1 fL 80-94 [facility] Work Phone: Hematocrit Auto (Bld) [Volum e fraction]on 07-12-2021 Hematocrit (Bld) [Volume fraction] 42.0 % 40-54 [facility] Work Phone: Laboratory - Hematology and Cell countson 07-12-2021 Erythrocyte distribution width (RBC) [Entitic vol] 41.4 fL 35.1-43.9 [facility] Work Phone: Erythrocyte distribution width (RBC) [Ratio] 12.6 % 11.6-14.6 [facility] Work Phone: Immature granulocytes/100 WBC (Bld) 0.300 % 0.0-0.9 [facility] Work Phone: Comment on above: IG% - Immature Granu locytes (promyelocytes, myelocytes and metamyelocytes) > 1% indicates that a LEFT SHIFT is Present. MCH (RBC) [Entitic mass] 31.2 pg 27.0-32.0 [facility] Work Phone: Nucleated RBC/100 WBC (Bld) [Ratio] 0 % 0-5 [facility] Work Phone: MCHC Auto (RBC) [Mass/Vol]on 07-12-2021 MCHC (RBC) [Mass/Vol] 34.3 g/dL 32-36 [facility] Work Phone: Platelets bldon 07-12-2021 Platelets (Bld) [#/Vol] 184 10*3/uL 150-450 [facility] Work Phone: Absolute lymphocyte counton 07-05-2021 Lymphocytes Auto (Unsp spec) [#/Vol] 1.55 10*3/uL 0.83-4.51 [facility] Work Phone: Basophil percentageon 2021 Basophils/100 WBC (Bld) 0.4 % 0-1 [facility] Work Phone: Cholesterol [Mass/Vol] 148 mg/dL <200 [facility] Work Phone: Comment on above: <200 mg/dL Desirable 200-240 mg/dL Borderline >240 mg/dL High Risk Eosinophils/100 WBC (Bld) 0.3 % 0-5 [facility] Work Phone: Neutrophils (Bld) [#/Vol] 5.5 10*3/uL 2.0-7.7 [facility] Work Phone: Neutrophils/100 WBC (Bld) 70.9 % 47-70 [facility] Work Phone: Triglyceride [Mass/Vol] 201 mg/dL <199 [facility] Work Phone: Comment on above: The drugs N-Acetylcy steine and Metamizole may falsely depress this assay.Serum Triglycerides Reference Interval Normal <150 mg/dL Borderline high 150 - 199 mg/dL High 200 - 499 mg/dL Very High > or = 500 mg/dL WBC (Bld) [#/Vol] 7.8 10*3/uL 4.4-11.0 [facility] Work Phone: Blood erythrocytes count (nu mber/volume)on 07-05-2021 RBC (Bld) [#/Vol] 4.46 10*6/uL 4.6-6.2 [facility] Work Phone: Blood hemoglobin measurement (mass/volume)on 07-05-2021 Hemoglobin (Bld) [Mass/Vol] 13.4 g/dL 13.0-16.5 [facility] Work Phone: Blood lymphocytes/100 leukoc yteson 07-05-2021 Lymphocytes/100 WBC (Bld) 20.0 % 19-41 [facility] Work Phone: Blood monocytes/100 leukocyt eson 07-05-2021 Monocytes/100 WBC (Bld) 8.1 % 0-10 [facility] Work Phone: Blood platelet mean volumeon 07-05-2021 Platelet mean volume (Bld) [Entitic vol] 11.7 fL 6.2-12.0 [facility] Work Phone: Determination of erythrocyte mean corpuscular volume (MCV)on 07-05-2021 MCV (RBC) [Entitic vol] 91.0 fL 80-94 [facility] Work Phone: Hematocrit Auto (Bld) [Volum e fraction]on 07-05-2021 Hematocrit (Bld) [Volume fraction] 40.6 % 40-54 [facility] Work Phone: Laboratory - Hematology and Cell countson 07-05-2021 Erythrocyte distribution width (RBC) [Entitic vol] 41.9 fL 35.1-43.9 [facility] Work Phone: Erythrocyte distribution width (RBC) [Ratio] 12.8 % 11.6-14.6 [facility] Work Phone: Immature granulocytes/100 WBC (Bld) 0.300 % 0.0-0.9 [facility] Work Phone: Comment on above: IG% - Immature Granu locytes (promyelocytes, myelocytes and metamyelocytes) > 1% indicates that a LEFT SHIFT is Present. MCH (RBC) [Entitic mass] 30.0 pg 27.0-32.0 [facility] Work Phone: Nucleated RBC/100 WBC (Bld) [Ratio] 0 % 0-5 [facility] Work Phone: MCHC Auto (RBC) [Mass/Vol]on 07-05-2021 MCHC (RBC) [Mass/Vol] 33.0 g/dL 32-36 [facility] Work Phone: Platelets bldon 07-05-2021 Platelets (Bld) [#/Vol] 186 10*3/uL 150-450 [facility] Work Phone: Serum or plasma cholesterol in HDL measurement (mass/volume)on 07-05-2021 Cholesterol in HDL [Mass/Vol] 30 mg/dL >40 [facility] Work Phone: Comment on above: The drugs N-Acetylcy steine and Metamizole may falsely depress this assay. Reference Range HDL <40 mg/dL Low HDL Cholesterol HDL >or= 60 mg/dL High HDL Cholesterol Serum or plasma cholesterol in VLDL measurement (mass/volume)on 07-05-2021 Cholesterol in VLDL [Mass/Vol] 40 mg/dL 5-40 [facility] Work Phone: Serum or plasma low density lipoprotein (LDL) cholesterol measurement (mass/volume)on 07-05-2021 Cholesterol in LDL [Mass/Vol] 78 mg/dL 0-130 [facility] Work Phone: Absolute lymphocyte counton 06-28-2021 Lymphocytes Auto (Unsp spec) [#/Vol] 2.01 10*3/uL 0.83-4.51 [facility] Work Phone: Basophil percentageon 2021 Basophils/100 WBC (Bld) 0.5 % 0-1 [facility] Work Phone: Eosinophils/100 WBC (Bld) 0.3 % 0-5 [facility] Work Phone: Neutrophils (Bld) [#/Vol] 3.3 10*3/uL 2.0-7.7 [facility] Work Phone: Neutrophils/100 WBC (Bld) 55.5 % 47-70 [facility] Work Phone: WBC (Bld) [#/Vol] 6.0 10*3/uL 4.4-11.0 [facility] Work Phone: Blood erythrocytes count (nu mber/volume)on 06-28-2021 RBC (Bld) [#/Vol] 4.32 10*6/uL 4.6-6.2 [facility] Work Phone: Blood hemoglobin measurement (mass/volume)on 06-28-2021 Hemoglobin (Bld) [Mass/Vol] 13.5 g/dL 13.0-16.5 [facility] Work Phone: Blood lymphocytes/100 leukoc yteson 06-28-2021 Lymphocytes/100 WBC (Bld) 33.5 % 19-41 [facility] Work Phone: Blood monocytes/100 leukocyt eson 06-28-2021 Monocytes/100 WBC (Bld) 10.0 % 0-10 [facility] Work Phone: Blood platelet mean volumeon 06-28-2021 Platelet mean volume (Bld) [Entitic vol] 11.8 fL 6.2-12.0 [facility] Work Phone: Determination of erythrocyte mean corpuscular volume (MCV)on 06-28-2021 MCV (RBC) [Entitic vol] 89.8 fL 80-94 [facility] Work Phone: Hematocrit Auto (Bld) [Volum e fraction]on 06-28-2021 Hematocrit (Bld) [Volume fraction] 38.8 % 40-54 [facility] Work Phone: Laboratory - Hematology and Cell countson 06-28-2021 Erythrocyte distribution width (RBC) [Entitic vol] 40.6 fL 35.1-43.9 [facility] Work Phone: Erythrocyte distribution width (RBC) [Ratio] 12.5 % 11.6-14.6 [facility] Work Phone: Immature granulocytes/100 WBC (Bld) 0.200 % 0.0-0.9 [facility] Work Phone: [phone] Comment on above: IG% - Immature Granu locytes (promyelocytes, myelocytes and metamyelocytes) > 1% indicates that a LEFT SHIFT is Present. MCH (RBC) [Entitic mass] 31.3 pg 27.0-32.0 [facility] Work Phone: Nucleated RBC/100 WBC (Bld) [Ratio] 0 % 0-5 [facility] Work Phone: [phone] MCHC Auto (RBC) [Mass/Vol]on 06-28-2021 MCHC (RBC) [Mass/Vol] 34.8 g/dL 32-36 [facility] Work Phone: [phone] Platelets bldon 06-28-2021 Platelets (Bld) [#/Vol] 185 10*3/uL 150-450 [facility] Work Phone: Absolute lymphocyte counton 06-21-2021 Lymphocytes Auto (Unsp spec) [#/Vol] 1.78 10*3/uL 0.83-4.51 [facility] Work Phone: Basophil percentageon 2021 Basophils/100 WBC (Bld) 0.3 % 0-1 [facility] Work Phone: Eosinophils/100 WBC (Bld) 0.4 % 0-5 [facility] Work Phone: Neutrophils (Bld) [#/Vol] 4.2 10*3/uL 2.0-7.7 [facility] Work Phone: Neutrophils/100 WBC (Bld) 62.7 % 47-70 [facility] Work Phone: WBC (Bld) [#/Vol] 6.8 10*3/uL 4.4-11.0 [facility] Work Phone: [phone] Blood erythrocytes count (nu mber/volume)on 06-21-2021 RBC (Bld) [#/Vol] 4.21 10*6/uL 4.6-6.2 [facility] Work Phone: Blood hemoglobin measurement (mass/volume)on 06-21-2021 Hemoglobin (Bld) [Mass/Vol] 13.3 g/dL 13.0-16.5 [facility] Work Phone: Blood lymphocytes/100 leukoc yteson 06-21-2021 Lymphocytes/100 WBC (Bld) 26.3 % 19-41 [facility] Work Phone: Blood monocytes/100 leukocyt eson 06-21-2021 Monocytes/100 WBC (Bld) 9.9 % 0-10 [facility] Work Phone: Blood platelet mean volumeon 06-21-2021 Platelet mean volume (Bld) [Entitic vol] 11.5 fL 6.2-12.0 [facility] Work Phone: Determination of erythrocyte mean corpuscular volume (MCV)on 06-21-2021 MCV (RBC) [Entitic vol] 91.0 fL 80-94 [facility] Work Phone: Hematocrit Auto (Bld) [Volum e fraction]on 06-21-2021 Hematocrit (Bld) [Volume fraction] 38.3 % 40-54 [facility] Work Phone: Laboratory - Hematology and Cell countson 06-21-2021 Erythrocyte distribution width (RBC) [Entitic vol] 40.2 fL 35.1-43.9 [facility] Work Phone: Erythrocyte distribution width (RBC) [Ratio] 12.2 % 11.6-14.6 [facility] Work Phone: Immature granulocytes/100 WBC (Bld) 0.400 % 0.0-0.9 [facility] Work Phone: Comment on above: IG% - Immature Granu locytes (promyelocytes, myelocytes and metamyelocytes) > 1% indicates that a LEFT SHIFT is Present. MCH (RBC) [Entitic mass] 31.6 pg 27.0-32.0 [facility] Work Phone: Nucleated RBC/100 WBC (Bld) [Ratio] 0 % 0-5 [facility] Work Phone: MCHC Auto (RBC) [Mass/Vol]on 06-21-2021 MCHC (RBC) [Mass/Vol] 34.7 g/dL 32-36 [facility] Work Phone: Platelets bldon 06-21-2021 Platelets (Bld) [#/Vol] 217 10*3/uL 150-450 [facility] Work Phone: [phone] Absolute lymphocyte counton 06-14-2021 Lymphocytes Auto (Unsp spec) [#/Vol] 1.41 10*3/uL 0.83-4.51 [facility] Work Phone: [phone] Basophil percentageon 2021 Basophils/100 WBC (Bld) 0.4 % 0-1 [facility] Work Phone: Chloride [Moles/Vol] 106 mmol/L 98-107 [facility] Work Phone: [phone] Eosinophils/100 WBC (Bld) 0.6 % 0-5 [facility] Work Phone: [phone] Glucose [Mass/Vol] 121 mg/dL 74-106 [facility] Work Phone: Comment on above: Fasting Glucose resu lt from 100 to 125 mg/dL suggests IMPAIRED HOMEOSTASIS per A.D.A. criteria. Neutrophils (Bld) [#/Vol] 4.8 10*3/uL 2.0-7.7 [facility] Work Phone: Neutrophils/100 WBC (Bld) 69.9 % 47-70 [facility] Work Phone: Potassium [Moles/Vol] 3.7 mmol/L 3.5-5.1 [facility] Work Phone: [phone] Sodium [Moles/Vol] 140 mmol/L 136-145 [facility] Work Phone: WBC (Bld) [#/Vol] 6.8 10*3/uL 4.4-11.0 [facility] Work Phone: Blood erythrocytes count (nu mber/volume)on 06-14-2021 RBC (Bld) [#/Vol] 4.78 10*6/uL 4.6-6.2 [facility] Work Phone: Blood hemoglobin measurement (mass/volume)on 06-14-2021 Hemoglobin (Bld) [Mass/Vol] 14.9 g/dL 13.0-16.5 [facility] Work Phone: Blood lymphocytes/100 leukoc yteson 06-14-2021 Lymphocytes/100 WBC (Bld) 20.8 % 19-41 [facility] Work Phone: Blood monocytes/100 leukocyt eson 06-14-2021 Monocytes/100 WBC (Bld) 7.7 % 0-10 [facility] Work Phone: Blood platelet mean volumeon 06-14-2021 Platelet mean volume (Bld) [Entitic vol] 11.5 fL 6.2-12.0 [facility] Work Phone: Determination of erythrocyte mean corpuscular volume (MCV)on 06-14-2021 MCV (RBC) [Entitic vol] 89.5 fL 80-94 [facility] Work Phone: Hematocrit Auto (Bld) [Volum e fraction]on 06-14-2021 Hematocrit (Bld) [Volume fraction] 42.8 % 40-54 [facility] Work Phone: Laboratory - Chemistry and C hemistry - challengeon 06-14-2021 CO2 [Moles/Vol] 27.0 mmol/L 21.0-32.0 [facility] Work Phone: Urea nitrogen/Creatinine [Mass ratio] 35.0 mg/mg 10-20 [facility] Work Phone: Laboratory - Hematology and Cell countson 06-14-2021 Erythrocyte distribution width (RBC) [Entitic vol] 39.3 fL 35.1-43.9 [facility] Work Phone: Erythrocyte distribution width (RBC) [Ratio] 12.0 % 11.6-14.6 [facility] Work Phone: Immature granulocytes/100 WBC (Bld) 0.600 % 0.0-0.9 [facility] Work Phone: Comment on above: IG% - Immature Granu locytes (promyelocytes, myelocytes and metamyelocytes) > 1% indicates that a LEFT SHIFT is Present. MCH (RBC) [Entitic mass] 31.2 pg 27.0-32.0 [facility] Work Phone: Nucleated RBC/100 WBC (Bld) [Ratio] 0 % 0-5 [facility] Work Phone: MCHC Auto (RBC) [Mass/Vol]on 06-14-2021 MCHC (RBC) [Mass/Vol] 34.8 g/dL 32-36 [facility] Work Phone: No Panel Informationon 06-14 Estimated GFR (MDRD) Amer 185 mL/min >60 [facility] Work Phone: Comment on above: GFR Calc Estimated GFR (MDRD) Non-Af Amer 153 mL/min >60 [facility] Work Phone: Comment on above: Non- GFR Calc Platelets bldon 06-14-2021 Platelets (Bld) [#/Vol] 223 10*3/uL 150-450 [facility] Work Phone: Serum or plasma calcium gordy urement (mass/volume)on 06-14-2021 Calcium [Mass/Vol] 8.0 mg/dL 8.5-10.1 [facility] Work Phone: Serum or plasma creatinine m easurement (mass/volume)on 06-14-2021 Creatinine [Mass/Vol] 0.57 mg/dL 0.70-1.30 [facility] Work Phone: Comment on above: The validity of the calculated GFR & GFRAA in patients over 70 years has not been determined. Clinical correlation is essential. Serum or plasma urea nitroge n measurement (mass/volume)on 06-14-2021 Urea nitrogen [Mass/Vol] 20 mg/dL 7-18 [facility] Work Phone: Thin prep Papanicolaou smear with manual screeningon 06-14-2021 Thin prep Papanicolaou smear with manual screening 7 5-15 [facility] Work Phone: Absolute lymphocyte counton 06-07-2021 Lymphocytes Auto (Unsp spec) [#/Vol] 1.38 10*3/uL 0.83-4.51 [facility] Work Phone: Basophil percentageon 2021 Basophils/100 WBC (Bld) 0.2 % 0-1 [facility] Work Phone: Eosinophils/100 WBC (Bld) 0.0 % 0-5 [facility] Work Phone: Neutrophils (Bld) [#/Vol] 7.3 10*3/uL 2.0-7.7 [facility] Work Phone: Neutrophils/100 WBC (Bld) 75.3 % 47-70 [facility] Work Phone: WBC (Bld) [#/Vol] 9.7 10*3/uL 4.4-11.0 [facility] Work Phone: Blood erythrocytes count (nu mber/volume)on 06-07-2021 RBC (Bld) [#/Vol] 4.48 10*6/uL 4.6-6.2 [facility] Work Phone: Blood hemoglobin measurement (mass/volume)on 06-07-2021 Hemoglobin (Bld) [Mass/Vol] 13.8 g/dL 13.0-16.5 [facility] Work Phone: Blood lymphocytes/100 leukoc yteson 06-07-2021 Lymphocytes/100 WBC (Bld) 14.2 % 19-41 [facility] Work Phone: Blood monocytes/100 leukocyt eson 06-07-2021 Monocytes/100 WBC (Bld) 10.2 % 0-10 [facility] Work Phone: Blood platelet mean volumeon 06-07-2021 Platelet mean volume (Bld) [Entitic vol] 11.9 fL 6.2-12.0 [facility] Work Phone: Determination of erythrocyte mean corpuscular volume (MCV)on 06-07-2021 MCV (RBC) [Entitic vol] 92.9 fL 80-94 [facility] Work Phone: Hematocrit Auto (Bld) [Volum e fraction]on 06-07-2021 Hematocrit (Bld) [Volume fraction] 41.6 % 40-54 [facility] Work Phone: Laboratory - Hematology and Cell countson 06-07-2021 Erythrocyte distribution width (RBC) [Entitic vol] 43.8 fL 35.1-43.9 [facility] Work Phone: Erythrocyte distribution width (RBC) [Ratio] 12.8 % 11.6-14.6 [facility] Work Phone: Immature granulocytes/100 WBC (Bld) 0.100 % 0.0-0.9 [facility] Work Phone: Comment on above: IG% - Immature Granu locytes (promyelocytes, myelocytes and metamyelocytes) > 1% indicates that a LEFT SHIFT is Present. MCH (RBC) [Entitic mass] 30.8 pg 27.0-32.0 [facility] Work Phone: Nucleated RBC/100 WBC (Bld) [Ratio] 0 % 0-5 [facility] Work Phone: MCHC Auto (RBC) [Mass/Vol]on 06-07-2021 MCHC (RBC) [Mass/Vol] 33.2 g/dL 32-36 [facility] Work Phone: Platelets bldon 06-07-2021 Platelets (Bld) [#/Vol] 152 10*3/uL 150-450 [facility] Work [phone] Absolute lymphocyte counton 05-31-2021 Lymphocytes Auto (Unsp spec) [#/Vol] 1.72 10*3/uL 0.83-4.51 [facility] Work Phone: [phone] Basophil percentageon 2021 Basophils/100 WBC (Bld) 0.7 % 0-1 [facility] Work Phone: [phone] Eosinophils/100 WBC (Bld) 1.1 % 0-5 [facility] Work Phone: [phone] Neutrophils (Bld) [#/Vol] 3.3 10*3/uL 2.0-7.7 [facility] Work Phone: Neutrophils/100 WBC (Bld) 58.5 % 47-70 [facility] Work Phone: [phone] WBC (Bld) [#/Vol] 5.6 10*3/uL 4.4-11.0 [facility] Work Phone: Blood erythrocytes count (nu mber/volume)on 05-31-2021 RBC (Bld) [#/Vol] 4.44 10*6/uL 4.6-6.2 [facility] Work Phone: Blood hemoglobin measurement (mass/volume)on 05-31-2021 Hemoglobin (Bld) [Mass/Vol] 13.6 g/dL 13.0-16.5 [facility] Work Phone: [phone] Blood lymphocytes/100 leukoc yteson 05-31-2021 Lymphocytes/100 WBC (Bld) 30.7 % 19-41 [facility] Work Phone: [phone] Blood monocytes/100 leukocyt eson 05-31-2021 Monocytes/100 WBC (Bld) 8.6 % 0-10 [facility] Work Phone: Blood platelet mean volumeon 05-31-2021 Platelet mean volume (Bld) [Entitic vol] 11.2 fL 6.2-12.0 [facility] Work Phone: Determination of erythrocyte mean corpuscular volume (MCV)on 05-31-2021 MCV (RBC) [Entitic vol] 92.1 fL 80-94 [facility] Work Phone: Hematocrit Auto (Bld) [Volum e fraction]on 05-31-2021 Hematocrit (Bld) [Volume fraction] 40.9 % 40-54 [facility] Work Phone: Laboratory - Hematology and Cell countson 05-31-2021 Erythrocyte distribution width (RBC) [Entitic vol] 42.2 fL 35.1-43.9 [facility] Work Phone: Erythrocyte distribution width (RBC) [Ratio] 12.4 % 11.6-14.6 [facility] Work Phone: Immature granulocytes/100 WBC (Bld) 0.400 % 0.0-0.9 [facility] Work Phone: Comment on above: IG% - Immature Granu locytes (promyelocytes, myelocytes and metamyelocytes) > 1% indicates that a LEFT SHIFT is Present. MCH (RBC) [Entitic mass] 30.6 pg 27.0-32.0 [facility] Work Phone: Nucleated RBC/100 WBC (Bld) [Ratio] 0 % 0-5 [facility] Work Phone: MCHC Auto (RBC) [Mass/Vol]on 05-31-2021 MCHC (RBC) [Mass/Vol] 33.3 g/dL 32-36 [facility] Work [facility]: Platelets bldon 05-31-2021 Platelets (Bld) [#/Vol] 189 10*3/uL 150-450 [facility] Work Phone: Absolute lymphocyte counton 05-24-2021 Lymphocytes Auto (Unsp spec) [#/Vol] 1.58 10*3/uL 0.83-4.51 [facility] Work Phone: Basophil percentageon 2021 Basophils/100 WBC (Bld) 0.8 % 0-1 [facility] Work Phone: Eosinophils/100 WBC (Bld) 2.4 % 0-5 [facility] Work Phone: Neutrophils (Bld) [#/Vol] 3.8 10*3/uL 2.0-7.7 [facility] Work Phone: Neutrophils/100 WBC (Bld) 60.3 % 47-70 [facility] Work Phone: WBC (Bld) [#/Vol] 6.3 10*3/uL 4.4-11.0 [facility]: Blood erythrocytes count (nu mber/volume)on 05-24-2021 RBC (Bld) [#/Vol] 4.50 10*6/uL 4.6-6.2 [facility]: Blood hemoglobin measurement (mass/volume)on 05-24-2021 Hemoglobin (Bld) [Mass/Vol] 13.7 g/dL 13.0-16.5 [facility] Work Phone: Blood lymphocytes/100 leukoc yteson 05-24-2021 Lymphocytes/100 WBC (Bld) 25.0 % 19-41 [facility] Work Phone: Blood monocytes/100 leukocyt eson 05-24-2021 Monocytes/100 WBC (Bld) 11.2 % 0-10 [facility] Work Phone: Blood platelet mean volumeon 05-24-2021 Platelet mean volume (Bld) [Entitic vol] 11.3 fL 6.2-12.0 [facility] Work Phone: Determination of erythrocyte mean corpuscular volume (MCV)on 05-24-2021 MCV (RBC) [Entitic vol] 92.9 fL 80-94 [facility] Work Phone: Hematocrit Auto (Bld) [Volum e fraction]on 05-24-2021 Hematocrit (Bld) [Volume fraction] 41.8 % 40-54 [facility] Work Phone: Laboratory - Hematology and Cell countson 05-24-2021 Erythrocyte distribution width (RBC) [Entitic vol] 42.8 fL 35.1-43.9 [facility] Work Phone: Erythrocyte distribution width (RBC) [Ratio] 12.6 % 11.6-14.6 [facility] Work Phone: Immature granulocytes/100 WBC (Bld) 0.300 % 0.0-0.9 [facility] Work Phone: Comment on above: IG% - Immature Granu locytes (promyelocytes, myelocytes and metamyelocytes) > 1% indicates that a LEFT SHIFT is Present. MCH (RBC) [Entitic mass] 30.4 pg 27.0-32.0 [facility] Work Phone: Nucleated RBC/100 WBC (Bld) [Ratio] 0 % 0-5 [facility] Work Phone: MCHC Auto (RBC) [Mass/Vol]on 05-24-2021 MCHC (RBC) [Mass/Vol] 32.8 g/dL 32-36 [facility] Work Phone: Platelets bldon 05-24-2021 Platelets (Bld) [#/Vol] 207 10*3/uL 150-450 [facility] Work Phone: Absolute lymphocyte counton 05-17-2021 Lymphocytes Auto (Unsp spec) [#/Vol] 1.59 10*3/uL 0.83-4.51 [facility] Work Phone: Basophil percentageon 2021 Basophils/100 WBC (Bld) 0.7 % 0-1 [facility] Work Phone: Eosinophils/100 WBC (Bld) 1.7 % 0-5 [facility] Work Phone: Neutrophils (Bld) [#/Vol] 3.5 10*3/uL 2.0-7.7 [facility] Work Phone: [phone] Neutrophils/100 WBC (Bld) 59.5 % 47-70 [facility] Work Phone: WBC (Bld) [#/Vol] 5.9 10*3/uL 4.4-11.0 [facility]: Blood erythrocytes count (nu mber/volume)on 05-17-2021 RBC (Bld) [#/Vol] 4.35 10*6/uL 4.6-6.2 [facility] Work [facility]: Blood hemoglobin measurement (mass/volume)on 05-17-2021 Hemoglobin (Bld) [Mass/Vol] 13.4 g/dL 13.0-16.5 [facility] Work Phone: Blood lymphocytes/100 leukoc yteson 05-17-2021 Lymphocytes/100 WBC (Bld) 26.9 % 19-41 [facility] Work Phone: Blood monocytes/100 leukocyt eson 05-17-2021 Monocytes/100 WBC (Bld) 11.0 % 0-10 [facility] Work Phone: [phone] Blood platelet mean volumeon 05-17-2021 Platelet mean volume (Bld) [Entitic vol] 11.5 fL 6.2-12.0 [facility] Work Phone: Determination of erythrocyte mean corpuscular volume (MCV)on 05-17-2021 MCV (RBC) [Entitic vol] 92.9 fL 80-94 [facility] Work Phone: [phone] Hematocrit Auto (Bld) [Volum e fraction]on 05-17-2021 Hematocrit (Bld) [Volume fraction] 40.4 % 40-54 [facility] Work Phone: Laboratory - Hematology and Cell countson 05-17-2021 Erythrocyte distribution width (RBC) [Entitic vol] 43.4 fL 35.1-43.9 [facility] Work Phone: Erythrocyte distribution width (RBC) [Ratio] 12.7 % 11.6-14.6 [facility] Work Phone: Immature granulocytes/100 WBC (Bld) 0.200 % 0.0-0.9 [facility] Work Phone: Comment on above: IG% - Immature Granu locytes (promyelocytes, myelocytes and metamyelocytes) > 1% indicates that a LEFT SHIFT is Present. MCH (RBC) [Entitic mass] 30.8 pg 27.0-32.0 [facility] Work Phone: Nucleated RBC/100 WBC (Bld) [Ratio] 0 % 0-5 [facility] Work Phone: MCHC Auto (RBC) [Mass/Vol]on 05-17-2021 MCHC (RBC) [Mass/Vol] 33.2 g/dL 32-36 [facility] Work Phone: Platelets bldon 05-17-2021 Platelets (Bld) [#/Vol] 171 10*3/uL 150-450 [facility] Work Phone: ED Provider Noteon 2 ED Provider Note Emergency Department Encounter [facility] ED Patient: Kathya Hooper : 1955 [...] [employer] Timothy Burton DO 05/15/21 1530 Normal [facility] ED Provider Note [facility]am[facility] ED eMERGENCY dEPARTMENT eNCOUnter Pt Name: Kathya [...] Diagnosis Date ? TREVER (acute kidney injury) ([facility]) ? Alcohol abuse 07/08/2018 ? Anxiety ? C1 spinal cord injury ([facility]) ? Depression ? Fall 06/2018 ? Schizophrenia ([facility]) SURGICAL HISTORY Past Surgical History: Procedure Laterality [...] of [place] (more content not included)... Normal [facility] Basophil percentageon 2021 Chloride [Moles/Vol] 105 mmol/L 98-107 os [facility] Work Phone: Glucose [Mass/Vol] 96 mg/dL 74-106 [facility] Work Phone: Potassium [Moles/Vol] 3.5 mmol/L 3.5-5.1 [facility] Work Phone: Sodium [Moles/Vol] 141 mmol/L 136-145 [facility] Work Phone: Laboratory - Chemistry and C hemistry - challengeon 05-14-2021 CO2 [Moles/Vol] 30.0 mmol/L 21.0-32.0 [facility] Work Phone: Urea nitrogen/Creatinine [Mass ratio] 39.2 mg/mg 10-20 [facility] Work Phone: No Panel Informationon 05-14 Estimated GFR (MDRD) Amer 210 mL/min >60 [facility] Work Phone: Comment on above: GFR Calc Estimated GFR (MDRD) Non-Af Amer 174 mL/min >60 [facility] Work Phone: Comment on above: Non- GFR Calc Serum or plasma calcium gordy urement (mass/volume)on 05-14-2021 Calcium [Mass/Vol] 8.4 mg/dL 8.5-10.1 [facility] r [facility] Work Phone: Serum or plasma creatinine m easurement (mass/volume)on 05-14-2021 Creatinine [Mass/Vol] 0.51 mg/dL 0.70-1.30 [facility] Work Phone: Comment on above: The validity of the calculated GFR & GFRAA in patients over 70 years has not been determined. Clinical correlation is essential. Serum or plasma urea nitroge n measurement (mass/volume)on 05-14-2021 Urea nitrogen [Mass/Vol] 20 mg/dL 7-18 [facility] Work Phone: Thin prep Papanicolaou smear with manual screeningon 05-14-2021 Thin prep Papanicolaou smear with manual screening 6 5-15 [facility] Work Phone: Absolute lymphocyte counton 05-10-2021 Lymphocytes Auto (Unsp spec) [#/Vol] 1.65 10*3/uL 0.83-4.51 [facility] Work Phone: Basophil percentageon 2021 Basophils/100 WBC (Bld) 0.5 % 0-1 [facility] Work Phone: Eosinophils/100 WBC (Bld) 0.7 % 0-5 [facility] Work Phone: Neutrophils (Bld) [#/Vol] 5.6 10*3/uL 2.0-7.7 [facility] Work Phone: Neutrophils/100 WBC (Bld) 69.5 % 47-70 [facility] Work Phone: WBC (Bld) [#/Vol] 8.1 10*3/uL 4.4-11.0 [facility] Work Phone: Blood erythrocytes count (nu mber/volume)on 05-10-2021 RBC (Bld) [#/Vol] 4.52 10*6/uL 4.6-6.2 [facility] Work Phone: Blood hemoglobin measurement (mass/volume)on 05-10-2021 Hemoglobin (Bld) [Mass/Vol] 13.8 g/dL 13.0-16.5 [facility] Work Phone: Blood lymphocytes/100 leukoc yteson 05-10-2021 Lymphocytes/100 WBC (Bld) 20.4 % 19-41 [facility] Work Phone: Blood monocytes/100 leukocyt eson 05-10-2021 Monocytes/100 WBC (Bld) 8.4 % 0-10 [facility] Work Phone: Blood platelet mean volumeon 05-10-2021 Platelet mean volume (Bld) [Entitic vol] 11.3 fL 6.2-12.0 [facility] Work Phone: Determination of erythrocyte mean corpuscular volume (MCV)on 05-10-2021 MCV (RBC) [Entitic vol] 91.8 fL 80-94 [facility] Work Phone: Hematocrit Auto (Bld) [Volum e fraction]on 05-10-2021 Hematocrit (Bld) [Volume fraction] 41.5 % 40-54 [facility] Work Phone: Laboratory - Hematology and Cell countson 05-10-2021 Erythrocyte distribution width (RBC) [Entitic vol] 42.9 fL 35.1-43.9 [facility] Work Phone: Erythrocyte distribution width (RBC) [Ratio] 12.8 % 11.6-14.6 [facility] Work Phone: Immature granulocytes/100 WBC (Bld) 0.500 % 0.0-0.9 [facility] Work Phone: Comment on above: IG% - Immature Granu locytes (promyelocytes, myelocytes and metamyelocytes) > 1% indicates that a LEFT SHIFT is Present. MCH (RBC) [Entitic mass] 30.5 pg 27.0-32.0 [facility] Work Phone: Nucleated RBC/100 WBC (Bld) [Ratio] 0 % 0-5 [facility] Work Phone: [phone] MCHC Auto (RBC) [Mass/Vol]on 05-10-2021 MCHC (RBC) [Mass/Vol] 33.3 g/dL 32-36 [facility] Work Phone: [phone] Platelets bldon 05-10-2021 Platelets (Bld) [#/Vol] 191 10*3/uL 150-450 [facility] Work Phone: Absolute lymphocyte counton 05-03-2021 Lymphocytes Auto (Unsp spec) [#/Vol] 1.69 10*3/uL 0.83-4.51 [facility] Work Phone: Basophil percentageon 2021 Basophils/100 WBC (Bld) 0.6 % 0-1 [facility] Work Phone: [phone] Eosinophils/100 WBC (Bld) 0.7 % 0-5 [facility] Work Phone: [phone] Neutrophils (Bld) [#/Vol] 4.6 10*3/uL 2.0-7.7 [facility] Work Phone: Neutrophils/100 WBC (Bld) 64.4 % 47-70 [facility] Work Phone: WBC (Bld) [#/Vol] 7.2 10*3/uL 4.4-11.0 [facility] Work Phone: [phone] Blood erythrocytes count (nu mber/volume)on 05-03-2021 RBC (Bld) [#/Vol] 4.55 10*6/uL 4.6-6.2 [facility] Work Phone: Blood hemoglobin measurement (mass/volume)on 05-03-2021 Hemoglobin (Bld) [Mass/Vol] 14.0 g/dL 13.0-16.5 [facility] Work Phone: Blood lymphocytes/100 leukoc yteson 05-03-2021 Lymphocytes/100 WBC (Bld) 23.6 % 19-41 [facility] Work Phone: Blood monocytes/100 leukocyt eson 05-03-2021 Monocytes/100 WBC (Bld) 10.3 % 0-10 [facility] Work Phone: Blood platelet mean volumeon 05-03-2021 Platelet mean volume (Bld) [Entitic vol] 11.7 fL 6.2-12.0 [facility] Work Phone: Determination of erythrocyte mean corpuscular volume (MCV)on 05-03-2021 MCV (RBC) [Entitic vol] 93.2 fL 80-94 [facility] Work Phone: Hematocrit Auto (Bld) [Volum e fraction]on 05-03-2021 Hematocrit (Bld) [Volume fraction] 42.4 % 40-54 [facility] Work Phone: Laboratory - Hematology and Cell countson 05-03-2021 Erythrocyte distribution width (RBC) [Entitic vol] 44.2 fL 35.1-43.9 [facility] Work Phone: Erythrocyte distribution width (RBC) [Ratio] 13.1 % 11.6-14.6 [facility] Work Phone: Immature granulocytes/100 WBC (Bld) 0.400 % 0.0-0.9 [facility] Work Phone: Comment on above: IG% - Immature Granu locytes (promyelocytes, myelocytes and metamyelocytes) > 1% indicates that a LEFT SHIFT is Present. MCH (RBC) [Entitic mass] 30.8 pg 27.0-32.0 [facility] Work Phone: Nucleated RBC/100 WBC (Bld) [Ratio] 0 % 0-5 [facility] Work Phone: MCHC Auto (RBC) [Mass/Vol]on 05-03-2021 MCHC (RBC) [Mass/Vol] 33.0 g/dL 32-36 [facility] Work Phone: Platelets bldon 05-03-2021 Platelets (Bld) [#/Vol] 175 10*3/uL 150-450 [facility] Work Phone: [phone] Absolute lymphocyte counton 04-26-2021 Lymphocytes Auto (Unsp spec) [#/Vol] 1.68 10*3/uL 0.83-4.51 [facility] Work Phone: [phone] Basophil percentageon 2020 Eosinophils/100 WBC (Bld) 1.1 % 0-5 [facility] Work Phone: [phone] Neutrophils (Bld) [#/Vol] 4.5 10*3/uL 2.0-7.7 [facility] Work Phone: [phone] WBC (Bld) [#/Vol] 7.2 10*3/uL 4.4-11.0 [facility] Work Phone: Blood erythrocytes count (nu mber/volume)on 04-26-2021 RBC (Bld) [#/Vol] 4.32 10*6/uL 4.6-6.2 [facility] Work Phone: [phone] Blood hemoglobin measurement (mass/volume)on 04-26-2021 Hemoglobin (Bld) [Mass/Vol] 13.5 g/dL 13.0-16.5 [facility] Work Phone: [phone] Blood lymphocytes/100 leukoc yteson 04-26-2021 Lymphocytes/100 WBC (Bld) 23.5 % 19-41 [facility] Work Phone: Blood monocytes/100 leukocyt eson 04-26-2021 Monocytes/100 WBC (Bld) 11.0 % 0-10 [facility] Work Phone: [phone] Blood platelet mean volumeon 04-26-2021 Platelet mean volume (Bld) [Entitic vol] 11.0 fL 6.2-12.0 [facility] Work Phone: [phone] Determination of erythrocyte mean corpuscular volume (MCV)on 04-26-2021 MCV (RBC) [Entitic vol] 93.3 fL 80-94 [facility] Work Phone: [phone] Hematocrit Auto (Bld) [Volum e fraction]on 04-26-2021 Hematocrit (Bld) [Volume fraction] 40.3 % 40-54 [facility] Work Phone: [phone] Laboratory - Hematology and Cell countson 04-26-2021 Basophils/100 WBC (Unsp spec) 0.6 % 0-1 [facility] Work Phone: [phone] Erythrocyte distribution width (RBC) [Entitic vol] 45.8 fL 35.1-43.9 [facility] Work Phone: [phone] Erythrocyte distribution width (RBC) [Ratio] 13.2 % 11.6-14.6 [facility] Work Phone: [phone] Immature granulocytes/100 WBC (Bld) 0.600 % 0.0-0.9 [facility] Work Phone: [phone] Comment on above: IG% - Immature Granu locytes (promyelocytes, myelocytes and metamyelocytes) > 1% indicates that a LEFT SHIFT is Present. MCH (RBC) [Entitic mass] 31.3 pg 27.0-32.0 [facility] Work Phone: [phone] Neutrophils/100 WBC (Bld) 63.2 % 47-70 [facility] Work Phone: [phone] Nucleated RBC/100 WBC (Bld) [Ratio] 0 % 0-5 [facility] Work Phone: [phone] MCHC Auto (RBC) [Mass/Vol]on 04-26-2021 MCHC (RBC) [Mass/Vol] 33.5 g/dL 32-36 [facility] Work Phone: [phone] Platelets bldon 04-26-2021 Platelets (Bld) [#/Vol] 172 10*3/uL 150-450 [facility] Work Phone: [phone] Absolute lymphocyte counton 04-19-2021 Lymphocytes Auto (Unsp spec) [#/Vol] 1.31 10*3/uL 0.83-4.51 [facility] Work Phone: [phone] Basophil percentageon 2020 Eosinophils/100 WBC (Bld) 2.8 % 0-5 [facility] Work Phone: [phone] Neutrophils (Bld) [#/Vol] 3.0 10*3/uL 2.0-7.7 [facility] Work Phone: [phone] WBC (Bld) [#/Vol] 5.0 10*3/uL 4.4-11.0 [facility] Work Phone: [phone] Blood erythrocytes count (nu mber/volume)on 04-19-2021 RBC (Bld) [#/Vol] 4.26 10*6/uL 4.6-6.2 [facility] Work Phone: [phone] Blood hemoglobin measurement (mass/volume)on 04-19-2021 Hemoglobin (Bld) [Mass/Vol] 13.2 g/dL 13.0-16.5 [facility] Work Phone: [phone] Blood lymphocytes/100 leukoc yteson 04-19-2021 Lymphocytes/100 WBC (Bld) 26.1 % 19-41 [facility] Work Phone: [phone] Blood monocytes/100 leukocyt eson 04-19-2021 Monocytes/100 WBC (Bld) 10.0 % 0-10 [facility] Work Phone: [phone] Blood platelet mean volumeon 04-19-2021 Platelet mean volume (Bld) [Entitic vol] 10.9 fL 6.2-12.0 [facility] Work Phone: Determination of erythrocyte mean corpuscular volume (MCV)on 04-19-2021 MCV (RBC) [Entitic vol] 93.7 fL 80-94 [facility] Work Phone: Hematocrit Auto (Bld) [Volum e fraction]on 04-19-2021 Hematocrit (Bld) [Volume fraction] 39.9 % 40-54 [facility] Work Phone: Laboratory - Hematology and Cell countson 04-19-2021 Basophils/100 WBC (Unsp spec) 1.0 % 0-1 [facility] Work Phone: Erythrocyte distribution width (RBC) [Entitic vol] 46.7 fL 35.1-43.9 [facility] Work Phone: Erythrocyte distribution width (RBC) [Ratio] 13.7 % 11.6-14.6 [facility] Work Phone: Immature granulocytes/100 WBC (Bld) 0.400 % 0.0-0.9 [facility] Work Phone: Comment on above: IG% - Immature Granu locytes (promyelocytes, myelocytes and metamyelocytes) > 1% indicates that a LEFT SHIFT is Present. MCH (RBC) [Entitic mass] 31.0 pg 27.0-32.0 [facility] Work Phone: Neutrophils/100 WBC (Bld) 59.7 % 47-70 [facility] Work Phone: [phone] Nucleated RBC/100 WBC (Bld) [Ratio] 0 % 0-5 [facility] Work Phone: [phone] MCHC Auto (RBC) [Mass/Vol]on 04-19-2021 MCHC (RBC) [Mass/Vol] 33.1 g/dL 32-36 [facility] Work Phone: [phone] Platelets bldon 04-19-2021 Platelets (Bld) [#/Vol] 165 10*3/uL 150-450 [facility] Work Phone: Absolute lymphocyte counton 04-12-2021 Lymphocytes Auto (Unsp spec) [#/Vol] 1.41 10*3/uL 0.83-4.51 [facility] Work Phone: Basophil percentageon 2020 Bilirubin [Mass/Vol] 0.40 mg/dL 0.20-1.00 [facility] Work Phone: Comment on above: For patients on eltr ombopag therapy, use of Dimension [place] TBIL is not recommended. Eosinophils/100 WBC (Bld) 0.9 % 0-5 [facility] Work Phone: Neutrophils (Bld) [#/Vol] 3.4 10*3/uL 2.0-7.7 [facility] Work Phone: Protein [Mass/Vol] 5.7 g/dL 6.4-8.2 [facility] Work Phone: WBC (Bld) [#/Vol] 5.5 10*3/uL 4.4-11.0 [facility] Work Phone: Blood erythrocytes count (nu mber/volume)on 04-12-2021 RBC (Bld) [#/Vol] 4.09 10*6/uL 4.6-6.2 [facility] Work Phone: Blood hemoglobin measurement (mass/volume)on 04-12-2021 Hemoglobin (Bld) [Mass/Vol] 12.4 g/dL 13.0-16.5 [facility] Work Phone: Blood lymphocytes/100 leukoc yteson 04-12-2021 Lymphocytes/100 WBC (Bld) 25.9 % 19-41 [facility] Work Phone: Blood monocytes/100 leukocyt eson 04-12-2021 Monocytes/100 WBC (Bld) 9.2 % 0-10 [facility] Work Phone: Blood platelet mean volumeon 04-12-2021 Platelet mean volume (Bld) [Entitic vol] 11.1 fL 6.2-12.0 [facility] Work Phone: Determination of erythrocyte mean corpuscular volume (MCV)on 04-12-2021 MCV (RBC) [Entitic vol] 93.4 fL 80-94 [facility] Work Phone: Direct bilirubinon Bilirubin.direct [Mass/Vol] 0.08 mg/dL 0.00-0.30 [facility] Work Phone: Hematocrit Auto (Bld) [Volum e fraction]on 04-12-2021 Hematocrit (Bld) [Volume fraction] 38.2 % 40-54 [facility] Work Phone: Laboratory - Chemistry and C hemistry - challengeon 04-12-2021 ALP [Catalytic activity/Vol] 101 U/L 45-117 [facility] Work Phone: ALT [Catalytic activity/Vol] 30 U/L 16-61 [facility] Work Phone: Globulin (S) [Mass/Vol] 2.9 g/dL 2.2-4.2 [facility] Work Phone: Laboratory - Hematology and Cell countson 04-12-2021 Basophils/100 WBC (Unsp spec) 0.6 % 0-1 [facility] Work Phone: Erythrocyte distribution width (RBC) [Entitic vol] 46.7 fL 35.1-43.9 [facility] Work Phone: Erythrocyte distribution width (RBC) [Ratio] 13.7 % 11.6-14.6 [facility] Work Phone: Immature granulocytes/100 WBC (Bld) 0.400 % 0.0-0.9 [facility] Work Phone: Comment on above: IG% - Immature Granu locytes (promyelocytes, myelocytes and metamyelocytes) > 1% indicates that a LEFT SHIFT is Present. MCH (RBC) [Entitic mass] 30.3 pg 27.0-32.0 [facility] Work Phone: Neutrophils/100 WBC (Bld) 63.0 % 47-70 [facility] Work Phone: Nucleated RBC/100 WBC (Bld) [Ratio] 0 % 0-5 [facility] Work Phone: MCHC Auto (RBC) [Mass/Vol]on 04-12-2021 MCHC (RBC) [Mass/Vol] 32.5 g/dL 32-36 [facility] Work Phone: [phone] Platelets bldon 04-12-2021 Platelets (Bld) [#/Vol] 173 10*3/uL 150-450 [facility] Work Phone: Serum or plasma albumin gordy urement (mass/volume)on 04-12-2021 Albumin [Mass/Vol] 2.8 g/dL 3.2-5.0 [facility] [place] [facility] Work Phone: Thin prep Papanicolaou smear with manual screeningon 04-12-2021 Thin prep Papanicolaou smear with manual screening 15 U/L 15-37 [facility] Work Phone: Absolute lymphocyte counton 04-07-2021 Lymphocytes Auto (Unsp spec) [#/Vol] 1.55 10*3/uL 0.83-4.51 [facility] Work Phone: Basophil percentageon 2020 Eosinophils/100 WBC (Bld) 0.7 % 0-5 [facility] Work Phone: Neutrophils (Bld) [#/Vol] 5.3 10*3/uL 2.0-7.7 [facility] Work Phone: [phone] WBC (Bld) [#/Vol] 8.1 10*3/uL 4.4-11.0 [facility] [place] [facility] Work Phone: Blood erythrocytes count (nu mber/volume)on 04-07-2021 RBC (Bld) [#/Vol] 4.18 10*6/uL 4.6-6.2 [facility] Work [facility]: Blood hemoglobin measurement (mass/volume)on 04-07-2021 Hemoglobin (Bld) [Mass/Vol] 12.9 g/dL 13.0-16.5 [facility] Work Phone: Blood lymphocytes/100 leukoc yteson 04-07-2021 Lymphocytes/100 WBC (Bld) 19.2 % 19-41 [facility] Work Phone: Blood monocytes/100 leukocyt eson 04-07-2021 Monocytes/100 WBC (Bld) 13.0 % 0-10 [facility] Work Phone: Blood platelet mean volumeon 04-07-2021 Platelet mean volume (Bld) [Entitic vol] 10.9 fL 6.2-12.0 [facility] Work Phone: Determination of erythrocyte mean corpuscular volume (MCV)on 04-07-2021 MCV (RBC) [Entitic vol] 92.6 fL 80-94 [facility] Work Phone: Hematocrit Auto (Bld) [Volum e fraction]on 04-07-2021 Hematocrit (Bld) [Volume fraction] 38.7 % 40-54 [facility] Work Phone: Laboratory - Hematology and Cell countson 04-07-2021 Basophils/100 WBC (Unsp spec) 0.6 % 0-1 [facility] Work Phone: Erythrocyte distribution width (RBC) [Entitic vol] 45.8 fL 35.1-43.9 [facility] Work Phone: Erythrocyte distribution width (RBC) [Ratio] 13.5 % 11.6-14.6 [facility] Work Phone: Immature granulocytes/100 WBC (Bld) 0.500 % 0.0-0.9 [facility] Work Phone: Comment on above: IG% - Immature Granu locytes (promyelocytes, myelocytes and metamyelocytes) > 1% indicates that a LEFT SHIFT is Present. MCH (RBC) [Entitic mass] 30.9 pg 27.0-32.0 [facility] Work Phone: Neutrophils/100 WBC (Bld) 66.0 % 47-70 [facility] Work Phone: Nucleated RBC/100 WBC (Bld) [Ratio] 0 % 0-5 [facility] Work Phone: MCHC Auto (RBC) [Mass/Vol]on 04-07-2021 MCHC (RBC) [Mass/Vol] 33.3 g/dL 32-36 [facility] Work Phone: Platelets bldon 04-07-2021 Platelets (Bld) [#/Vol] 210 10*3/uL 150-450 [facility] Work Phone: CULTURE BLOODon 03-25-2021 Microscopic examination of blood, culture CULTURE BLOOD --> Status: F No growth at 5 days. Normal [facility] Comment on above: Performed By: #### C /BLD ####[address] [place], [place] CULTURE BLOOD (Two)on 2020 Microscopic examination of blood, culture CULTURE BLOOD (Two) --> Status: F No growth at 5 days. Normal [facility] Comment on above: Performed By: #### C /BLT ####[address] [place], [place] Basic Metabolic Panelon 03-02 Calcium [Mass/Vol] 8.8 mg/dL Normal 8.4-10.4 [facility] Comment on above: Performed By: #### H EMDMaurice BMP3 #### [facility] [address] [place] [address] Glucose [Mass/Vol] 103 mg/dL High 70-100 [facility] Comment on above: Performed By: #### H EMDF, BMP3 #### [facility] [employer] [address] [place] [address] Anion gap [Moles/Vol] 5 mmol/L Normal 3-13 [facility] Comment on above: Performed By: #### H MAYKEL BMP3 #### [facility] [address] [place] [address] CO2 [Moles/Vol] 26 mmol/L Normal 22-30 [facility] Comment on above: Performed By: #### H MAYKEL, BMP3 #### [facility] [address] [place] [address] Creatinine [Mass/Vol] 0.49 mg/dL Low 0.52-1.25 [facility] Comment on above: Performed By: #### H MAYKEL BMP3 #### [facility] [address] [place] [address] eGFR OTHER > 90.0 Normal >60 [facility] [address] [place] [address] GFR/1.73 sq M.predicted among blacks MDRD (S/P/Bld) [Vol rate/Area] mL/min/{1.73_m2} Normal >60 [facility] Comment on above: Performed By: #### H MAYKEL BMP3 #### [facility] [address] [place] [address] Urea nitrogen [Mass/Vol] 30 mg/dL High 7-17 [facility] Comment on above: Performed By: #### H EMDF, BMP3 #### [facility] [address] [place] [address] Chloride [Moles/Vol] 112 mmol/L High 98-107 [facility] Comment on above: Performed By: #### H EMDF, BMP3 #### [facility] [address] [place] [address] Potassium [Moles/Vol] 4.1 mmol/L Normal 3.5-5.1 [facility] Comment on above: Performed By: #### H EMDF, BMP3 #### [facility] [address] [place] [address] Sodium [Moles/Vol] 142 mmol/L Normal 135-145 [facility] Comment on above: Performed By: #### H EMDF, BMP3 #### [facility] [address] [place] [address] Anion gap [Moles/Vol] 5 mmol/L 3 - 13 mmol/L [facility] Work Phone: Calcium [Mass/Vol] 8.8 mg/dL 8.4 - 10. 4 mg/dL [facility] Work Phone: Chloride [Moles/Vol] 112 mmol/L High 98 - 10 7 mmol/L [facility] Work Phone: CO2 [Moles/Vol] 26 mmol/L 22 - 30 mmol/L [facility] Work Phone: Creatinine [Mass/Vol] 0.49 mg/dL Low 0.52 - 1.25 mg/dL [facility] Work Phone: EGFR IF NonAfrican Afghan >90.0 >60 mL/min [facility] Work Phone: Comment on above: KDIGO guidelines [...] MDRD (S/P/Bld) [Vol rate/Area] mL/min/{1.73_m2} >60 mL/min [facility] Work Phone: Glucose [Mass/Vol] 103 mg/dL High 70 - 100 mg/dL [facility] Work Phone: Interpretation and review of laboratory results Abnormal [facility] Work Phone: Potassium [Moles/Vol] 4.1 mmol/L 3.5 - 5.1 mmol/L [facility] Work Phone: Sodium [Moles/Vol] 142 mmol/L 135 - 145 mmol/L [facility] Work Phone: Urea nitrogen (BldV) [Mass/Vol] 30 mg/dL High 7 - 17 mg/dL [facility] Work Phone: Test Performed by [facility] [employer] [facility], [address] [place] [id number] [place] [address] LAB [facility] Work Phone: CBC Auto Differentialon 11-2 Hematocrit (Bld) [Volume fraction] 35.0 % Low 40.0 - 52.0 % [facility] Work Phone: Hemoglobin.gastrointest inal spec 1 Ql (Stl) 11.7 g/dL Low 13.0 - 18.0 g/dL [facility] Work Phone: Interpretation and review of laboratory results Abnormal [facility] Work Phone: MCH (RBC) [Entitic mass] 31.0 pg 26.0 - 34.0 pg [facility] Work Phone: MCHC (RBC) [Mass/Vol] 33.4 % 32.0 - 36.0 % [facility] Work Phone: MCV (RBC) [Entitic vol] 92.7 fL 80.0 - 98.0 fL [facility] Work Phone: Platelet distribution width (Bld) [Ratio] 13.4 % 11.5 - 14.5 % [employer] Work Phone: Platelet mean volume (Bld) [Entitic vol] 8.6 fL 7.4 - 10.4 fL [facility] Work Phone: Platelets (Bld) [#/Vol] 236 10*3/uL 140 - 440 10*3/uL [facility] Work Phone: RBC (Bld) [#/Vol] 3.77 10*6/uL Low 4.40 - 5.9 0 10*6/uL [facility] Work Phone: WBC (Bld) [#/Vol] 12.8 10*3/uL High 3.6 - 10.7 10*3/uL [facility] Work Phone: [facility], [address] [place], [place] [address] [facility] LAB [facility] Work Phone: Glucose,Bedsideon 03-24-2021 Glucose [Mass/Vol] 93 mg/dL Normal 70-100 [facility] Comment on above: Result Comment: Test performed by glucose meter. Results may be 10%-15% lower than serum/plasma values. (CLIA ID [id number]) Performed By: #### H EMDF, BMP3 #### [facility] [address] [place] [address] Glucose [Mass/Vol] 166 mg/dL High 70-100 [facility] Comment on above: Result Comment: Test performed by glucose meter. Results may be 10%-15% lower than serum/plasma values. (CLIA ID [id number]) Performed By: #### B GLU ####[address] [place] [address] Hemogram w/ Autodiffon 03-24 Erythrocyte distribution width (RBC) [Ratio] 13.4 % Normal 11.5-14.5 [facility] Comment on above: Performed By: #### Kerri BRAR BMP3 #### [facility] [address] [place] [address] Hematocrit (Bld) [Volume fraction] 35.0 % Low 40.0-52.0 [facility] Comment on above: Performed By: #### Kerri BRAR BMP3 #### [facility] [address] [place] [address] Hemoglobin (Bld) [Mass/Vol] 11.7 g/dL Low 13.0-18.0 [facility] Comment on above: Performed By: #### Kerri BRAR BMP3 #### [facility] [address] [place] [address] MCH (RBC) [Entitic mass] 31.0 pg Normal 26.0-34.0 [facility] Comment on above: Performed By: #### Kerri BRAR BMP3 #### [facility] [address] [place] [address] MCHC 33.4 % Normal 32.0-36.0 [facility] Comment on above: Performed By: #### Kerri BRAR BMP3 #### [facility] [address] [place] [address] MCV (RBC) [Entitic vol] 92.7 fL Normal 80.0-98.0 [facility] Comment on above: Performed By: #### Kerri BRAR BMP3 #### [facility] [address] [place] [address] Platelet mean volume (Bld) [Entitic vol] 8.6 fL Normal 7.4-10.4 [facility] Comment on above: Performed By: #### H MAYKEL BMP3 #### [facility] [address] [place] [address] Platelets (Bld) [#/Vol] 236 10*3/uL Normal 140-440 [facility] Comment on above: Performed By: #### Kerri BRAR BMP3 #### [facility] [address] [place] [address] RBC (Bld) [#/Vol] 3.77 10*6/uL Low 4.40-5.90 [facility] Comment on above: Performed By: #### H EMDMaurice BMP3 #### [facility] [address] [place] [address] WBC (Bld) [#/Vol] 12.8 10*3/uL High 3.6-10.7 [facility] Comment on above: Performed By: #### H EMDF, BMP3 #### [facility] [address] [place] [address] Manual Diffon 03-24-2021 Abs Lymph Cnt 1.7 10*3/uL Normal 1.1-4.[address] [facility] Comment on above: Performed By: #### H EMDMaurice BMP3 #### [place] [address] [place] [address] Abs Monocyte Cnt 0.8 10*3/uL Normal 0.2-1.1 [facility] Comment on above: Performed By: #### H EMDF, BMP3 #### [facility] [address] [place] [address] Abs Neutrophile Cnt 10.1 10*3/uL High 2.2-8.2 [facility] Comment on above: Performed By: #### H EMDF, BMP3 #### [place] [address] [place] [address] Anisocytosis Slight Normal [facility] Comment on above: Performed By: #### H EMDF, BMP3 #### [place] [address] [place] [address] Atypical Lymphocytes 2 % Abnormal <1 [facility] Comment on above: Performed By: #### H EMDF, BMP3 #### [place] [address] [place] [address] Abdoul Cells Slight Normal [facility] Comment on above: Performed By: #### H EMDF, BMP3 #### [place] [address] [place] [address] Lymphocytes 11 % Low 20-40 [facility] Comment on above: Performed By: #### H EMDF, BMP3 #### [place] [address] [place] [address] Monocytes 6 % Normal 2-10 [facility] Comment on above: Performed By: #### H EMDF, BMP3 #### [facility] [address] [place] [address] Myelocytes 2 % Abnormal <1 [facility] Comment on above: Performed By: #### H EMDF, BMP3 #### [facility] [address] [place] [address] Ovalocytes Slight Normal [facility] Comment on above: Performed By: #### H EMDF, BMP3 #### [facility] [address] [place] [address] Poikilocytosis Slight Normal [facility] Comment on above: Performed By: #### H EMDF, BMP3 #### [facility] [address] [place] [address] Polychromasia Slight Normal [facility] Comment on above: Performed By: #### H EMDF, BMP3 #### [facility] [address] [place] [address] RBC Morphology ABNORMAL Normal [facility] Comment on above: Performed By: #### H EMDF, BMP3 #### [facility] [address] [place] [address] Seg Neutrophils 79 % Normal 40-80 [facility] Comment on above: Performed By: #### H EMDF, BMP3 #### [facility] [address] [place] [address] Tear Drop Forms Slight Normal [facility] Comment on above: Performed By: #### H EMDF, BMP3 #### [facility] [address] [place] [address] Abs Baso Cnt 0.0 10*3/uL Normal 0.0-0.2 [facility] Comment on above: Performed By: #### H EMDF, BMP3 #### [facility] [address] [place] [address] Abs Eosin Cnt 0.0 10*3/uL Normal 0.0-0.5 [facility] Comment on above: Performed By: #### H EMDF, BMP3 #### [facility] [address] [place] [address] Bands 0 % Normal 0-3 [facility] Comment on above: Performed By: #### H EMDF, BMP3 #### [facility] [address] [place] [address] Basophils 0 % Normal 0-2 [facility] Comment on above: Performed By: #### H EMDF, BMP3 #### [facility] [address] [place] [address] Cells counted 100 Normal [facility] Comment on above: Performed By: #### H EMDF, BMP3 #### [facility] [address] [place] [address] Eosinophils 0 % Low 1-6 [facility] Comment on above: Performed By: #### H EMDF, BMP3 #### [facility] [address] [place] [address] Manual Differentialon 2020 Absolute Baso # 0.0 10*3/uL 0.0 - 0.2 10*3/uL [facility] Work Phone: Absolute Eos # 0.0 10*3/uL 0.0 - 0.5 10*3/uL [facility] Work Phone: Absolute Lymph # 1.7 10*3/uL 1.1 - 4.5 10*3/uL [facility] Work Phone: Absolute Garland # 0.8 10*3/uL 0.2 - 1.1 10*3/uL [facility] Work Phone: Absolute Neut # 10.1 10*3/uL High 2.2 - 8.2 10*3/uL [facility] Work Phone: Anisocytosis Slight [facility] Work Phone: Atypical Lymphocytes 2 % Abnormal <1 [facility] Work Phone: Bands 0 % 0 - 3 % [facility] Work Phone: Basophils/100 WBC (Bld) 0 % 0 - 2 % S [facility] Work Phone: Humbird Cells Slight [facility] Work Phone: Eosinophils/100 WBC [...] Ovalocytes Slight [facility] Work Phone: Poikilocytes Slight [facility] Work Phone: Polychromasia Slight [facility] Work Phone: RBC (Bld) [#/Vol] ABNORMAL [facility] Work Phone: Seg Neutrophils 79 % 40 - 80 % [facility] Work Phone: Tear Drop Cells Slight [facility] Work Phone: TOTAL CELLS COUNTED 100 [facility] Work Phone: Test Performed by [facility], [address] [place], [place] [id number] [place] [address] LAB [facility] Work Phone: POCT Glucoseon 03-24-2021 Glucose [Mass/Vol] 93 mg/dL 70 - 100 mg/dL [facility] Work Phone: Comment on above: Test performed by [employer] ucose meter. Results may be 10%-15% lower than serum/plasma values. (CLIA ID [id number]) Test Performed by [facility], [address] [place], [place] [id number] [place] [address] LAB [facility] Work Phone: Basic Metabolic Panelon 11-2 Calcium [Mass/Vol] 8.8 mg/dL Normal 8.4-10.4 [facility] Comment on above: Performed By: #### H EMDF BMP3 #### [facility] [address] [place] [address] Glucose [Mass/Vol] 143 mg/dL High 70-100 [facility] Comment on above: Performed By: #### H MAYKEL BMP3 #### [facility] [address] [place] [address] Anion gap [Moles/Vol] 8 mmol/L Normal 3-13 [facility] Comment on above: Performed By: #### H MAYKEL BMP3 #### [facility] [address] [place] [address] CO2 [Moles/Vol] 24 mmol/L Normal 22-30 [facility] Comment on above: Performed By: #### H MAYKEL BMP3 #### [facility] [address] [place] [address] Creatinine [Mass/Vol] 0.47 mg/dL Low 0.52-1.25 [facility] Comment on above: Performed By: #### H MAYKEL BMP3 #### [facility] [address] [place] [address] eGFR OTHER > 90.0 Normal >60 [facility] [...] [facility] [address] [place] [address] GFR/1.73 sq M.predicted among blacks MDRD (S/P/Bld) [Vol rate/Area] mL/min/{1.73_m2} Normal >60 [facility] Comment on above: Performed By: #### H EMDF, BMP3 #### [facility] [address] [place] [address] Urea nitrogen [Mass/Vol] 32 mg/dL High 7-17 [facility] Comment on above: Performed By: #### H EMDF, BMP3 #### [facility] [address] [place] [address] Chloride [Moles/Vol] 110 mmol/L High 98-107 [facility] Comment on above: Performed By: #### H EMDF, BMP3 #### [facility] [address] [place] [address] Potassium [Moles/Vol] 3.9 mmol/L Normal 3.5-5.1 [facility] Comment on above: Performed By: #### H EMDF, BMP3 #### [facility] [address] [place] [address] Sodium [Moles/Vol] 142 mmol/L Normal 135-145 [facility] Comment on above: Performed By: #### H EMDF, BMP3 #### [facility] [address] [place] [address] Anion gap [Moles/Vol] 8 mmol/L 3 - 13 mmol/L [facility] Work Phone: Calcium [Mass/Vol] 8.8 mg/dL 8.4 - 10. 4 mg/dL [facility] Work Phone: Chloride [Moles/Vol] 110 mmol/L High 98 - 10 7 mmol/L [facility] Work Phone: CO2 [Moles/Vol] 24 mmol/L 22 - 30 mmol/L [facility] Work Phone: Creatinine [Mass/Vol] 0.47 mg/dL Low 0.52 - 1.25 mg/dL [facility] Work Phone: EGFR IF NonAfrican Afghan >90.0 >60 mL/min [facility] Work Phone: Comment on above: [...] MDRD (S/P/Bld) [Vol rate/Area] mL/min/{1.73_m2} >60 mL/min [facility] Work Phone: Glucose [Mass/Vol] 143 mg/dL High 70 - 100 mg/dL [facility] Work Phone: Interpretation and review of laboratory results Abnormal [facility] Work Phone: Potassium [Moles/Vol] 3.9 mmol/L 3.5 - 5.1 mmol/L [facility] Work Phone: Sodium [Moles/Vol] 142 mmol/L 135 - 145 mmol/L [facility] Work Phone: Urea nitrogen (BldV) [Mass/Vol] 32 mg/dL High 7 - 17 mg/dL [facility] Work Phone: [facility] by [facility], [address] [place], [place] [address] [facility] LAB [facility] Work Phone: CBC Auto Differentialon 11-2 Absolute Baso # 0.0 10*3/uL 0.0 - 0.2 10*3/uL [facility] Work Phone: Absolute Neut # 13.5 10*3/uL High 1.8 - 7.0 10*3/uL [facility] Work Phone: Basophils/100 WBC (Bld) 0.3 % 0.0 - 2.0 % [facility] Work Phone: Eosinophils (Bld) [#/Vol] 0.0 10*3/uL 0.0 - 0.5 10*3/uL [facility] Work Phone: Eosinophils/100 WBC (Bld) 0.0 % Low 1.0 - 6.0 % [facility] Work Phone: Granulocytes/100 WBC (Bld) 89.5 % High 40.0 - 80.0 % [facility] Work Phone: Hematocrit (Bld) [Volume fraction] 36.5 % Low 40.0 - 52.0 % [facility] Work Phone: Hemoglobin.gastrointest inal spec 1 Ql (Stl) 12.4 g/dL Low 13.0 - 18.0 g/dL [facility] Work Phone: Interpretation and review of laboratory results Abnormal [facility] Work Phone: Lymphocytes (Bld) [#/Vol] 0.7 10*3/uL Low 1.0 - 4.3 10*3/uL [facility] Work Phone: Lymphocytes/100 WBC (Bld) 4.8 % Low 20.0 - 40.0 % [facility] Work Phone: MCH (RBC) [Entitic mass] 31.3 pg 26.0 - 34.0 pg [facility] Work Phone: MCHC (RBC) [Mass/Vol] 34.1 % 32.0 - 36.0 % [facility] Work Phone: MCV (RBC) [Entitic vol] 92.0 fL 80.0 - 98.0 fL [facility] Work Phone: Monocytes (Bld) [#/Vol] 0.8 10*3/uL 0.0 - 0.8 10*3/uL [facility] Work Phone: Monocytes/100 WBC (Bld) 5.4 % 2.0 - 10.0 % [facility] Work Phone: Platelet distribution width (Bld) [Ratio] 13.2 % 11.5 - 14.5 % [facility] Work Phone: Platelet mean volume (Bld) [Entitic vol] 9.0 fL 7.4 - 10.4 fL [facility] Work Phone: Platelets (Bld) [#/Vol] 211 10*3/uL 140 - 440 10*3/uL [facility] Work Phone: RBC (Bld) [#/Vol] 3.96 10*6/uL Low 4.40 - 5.9 0 10*6/uL [facility] Work Phone: WBC (Bld) [#/Vol] 15.1 10*3/uL High 3.6 - 10.7 10*3/uL [facility] Work Phone: Test Performed by [facility], [address] [place], [place] [address] [facility] LAB [facility] Work Phone: Glucose,Bedsideon 03-23-2021 Glucose [Mass/Vol] 122 mg/dL High 70-100 [facility] Comment on above: Result Comment: Test performed by glucose meter. Results may be 10%-15% lower than serum/plasma values. (CLIA ID [id number]) Performed By: #### H EMDF, BMP3 #### [facility] [address] [place] [address] Glucose [Mass/Vol] 129 mg/dL High 70-100 [facility] Comment on above: Test performed by gl ucose meter. Results may be 10%-15% lower than serum/plasma values. (CLIA ID [id number]) Result Comment: Test performed by glucose meter. Results may be 10%-15% lower than serum/plasma values. (CLIA ID [id number]) Performed By: #### B GLU ####[address] [place] [address] Glucose [Mass/Vol] 136 mg/dL High 70-100 [facility] Comment on above: Result Comment: Test performed by glucose meter. Results may be 10%-15% lower than serum/plasma values. (CLIA ID [id number]) Performed By: #### B GLU #### [facility] [address] [place] [address] Hemogram w/ Autodiffon 03-23 Abs Baso Cnt 0.0 10*3/uL Normal 0.0-0.2 [facility] Comment on above: Performed By: #### H EMDF, BMP3 #### [facility] [address] [place] [address] Abs Neutrophile Cnt 13.5 10*3/uL High 1.8-7.0 [facility] Comment on above: Performed By: #### H EMDF, BMP3 #### [facility] [address] [place] [address] Basophils/100 WBC (Bld) 0.3 % Normal 0.0-2.0 [facility] Comment on above: Performed By: #### H EMDF, BMP3 #### [facility] [address] [place] [address] Eosinophils (Bld) [#/Vol] 0.0 10*3/uL Normal 0.0-0.5 [facility] Comment on above: Performed By: #### H EMDF, BMP3 #### [facility] [address] [place] [address] Eosinophils/100 WBC (Bld) 0.0 % Low 1.0-6.0 [facility] Comment on above: Performed By: #### H EMDF, BMP3 #### [facility] [address] [place] [address] Erythrocyte distribution width (RBC) [Ratio] 13.2 % Normal 11.5-14.5 [facility] Comment on above: Performed By: #### H EMDF, BMP3 #### [facility] [address] [place] [address] Granulocytes/100 WBC (Bld) 89.5 % High 40.0-80.0 [facility] Comment on above: Performed By: #### H EMDF, BMP3 #### [facility] [address] [place] [address] Hematocrit (Bld) [Volume fraction] 36.5 % Low 40.0-52.0 [facility] Comment on above: Performed By: #### H EMDF, BMP3 #### [facility] [address] [place] [address] Hemoglobin (Bld) [Mass/Vol] 12.4 g/dL Low 13.0-18.0 [facility] Comment on above: Performed By: #### H EMDF, BMP3 #### [facility] [address] [place] [address] Lymphocytes (Bld) [#/Vol] 0.7 10*3/uL Low 1.0-4.3 [facility] Comment on above: Performed By: #### H EMDF, BMP3 #### [facility] [address] [place] [address] Lymphocytes/100 WBC (Bld) 4.8 % Low 20.0-40.0 [facility] Comment on above: Performed By: #### H EMDF, BMP3 #### [facility] [address] [place] [address] MCH (RBC) [Entitic mass] 31.3 pg Normal 26.0-34.0 [facility] Comment on above: Performed By: #### H EMDF, BMP3 #### [facility] [address] [place] [address] MCHC 34.1 % Normal 32.0-36.0 [facility] Comment on above: Performed By: #### H EMDF, BMP3 #### [facility] [address] [place] [address] MCV (RBC) [Entitic vol] 92.0 fL Normal 80.0-98.0 [facility] Comment on above: Performed By: #### H EMDF, BMP3 #### [facility] [address] [place] [address] Monocytes (Bld) [#/Vol] 0.8 10*3/uL Normal 0.0-0.8 [facility] Comment on above: Performed By: #### H EMDF, BMP3 #### [facility] [address] [place] [address] Monocytes/100 WBC (Bld) 5.4 % Normal 2.0-10.0 [facility] Comment on above: Performed By: #### H EMDF, BMP3 #### [facility] [address] [place] [address] Platelet mean volume (Bld) [Entitic vol] 9.0 fL Normal 7.4-10.4 [facility] Comment on above: Performed By: #### H EMDF, BMP3 #### [facility] [address] [place] [address] Platelets (Bld) [#/Vol] 211 10*3/uL Normal 140-440 [facility] Comment on above: Performed By: #### H EMDF, BMP3 #### [facility] [address] [place] [address] RBC (Bld) [#/Vol] 3.96 10*6/uL Low 4.40-5.90 [facility] Comment on above: Performed By: #### H EMDF, BMP3 #### [facility] [address] [place] [address] WBC (Bld) [#/Vol] 15.1 10*3/uL High 3.6-10.7 [facility] Comment on above: Performed By: #### H EMDF, BMP3 #### [facility] [address] [place] [address] No Panel Informationon 03-23 Interpretation and review of laboratory results Abnormal [facility] Work Phone: Test Performed by [facility], [facility] [address] [place], [place] [address] [facility] Work Phone: POCT Glucoseon 03-23-2021 Glucose [Mass/Vol] 166 mg/dL High 70 - 100 mg/dL [facility] Comment on above: Test performed by ucose meter. Results may be 10%-15% lower than serum/plasma values. (CLIA ID [id number]) Interpretation and review of laboratory results Abnormal [facility] Test Performed by [facility], [address] [place], [place] [address] [facility] Glucose [Mass/Vol] 122 mg/dL High 70 - 100 mg/dL [facility] Work Phone: Comment on above: Test performed by gl ucose meter. Results may be 10%-15% lower than serum/plasma values. (CLIA ID [id number]) Glucose [Mass/Vol] 136 mg/dL High 70 - 100 mg/dL [facility] Comment on above: Test performed by gl ucose meter. Results may be 10%-15% lower than serum/plasma values. (CLIA ID [id number]) Interpretation and review of laboratory results Abnormal [facility] Test Performed by [facility], [address] LAB [facility] CBC Auto Differentialon - Absolute Baso # 0.0 10*3/uL 0.0 - [...] 12.4 g/dL Low 13.0 - 18.0 g/dL [facility] Interpretation and review of laboratory results [...] 13.3 10*3/uL High 3.6 - 10.7 10*3/uL [facility] Test Performed by [facility], [address] [place], [place] [id number] [place] [address] LAB [facility] Glucose,Bedsideon 03-22-2021 Glucose [Mass/Vol] 134 mg/dL High 70-100 [facility] Comment on above: Result Comment: Test performed by glucose meter. Results may be 10%-15% lower than serum/plasma values. (CLIA ID [id number]) Performed By: #### H EMD, BMP3 #### [facility] [address] [place] [address] Glucose [Mass/Vol] 190 mg/dL High 70-100 [facility] Comment on above: Result Comment: Test performed by glucose meter. Results may be 10%-15% lower than serum/plasma values. (CLIA ID [id number]) Performed By: #### B GLU #### [facility] [address] [place] [address] Glucose [Mass/Vol] 200 mg/dL High 70-100 [facility] Comment on above: Result Comment: Test performed by glucose meter. Results may be 10%-15% lower than serum/plasma values. (CLIA ID [id number]) Performed By: #### B GLU #### [facility] [address] [place] [address] Glucose [Mass/Vol] 181 mg/dL High 70-100 [facility] Comment on above: Result Comment: Test performed by glucose meter. Results may be 10%-15% lower than serum/plasma values. (CLIA ID [id number]) Performed By: #### B GLU #### [facility] [address] [place] [address] Glucose [Mass/Vol] 186 mg/dL High 70-100 [facility] Comment on above: Result Comment: Test performed by glucose meter. Results may be 10%-15% lower than serum/plasma values. (CLIA ID [id number]) Performed By: #### B GLU #### [facility] [address] [place] [address] Hemoglobin A1Con 03-22-2021 Glucose [Mass/Vol] 108 mg/dL Normal [facility] Comment on above: Performed By: #### B GLU #### [facility] [address] [place] [address] HbA1c (Bld) [Mass fraction] 5.4 % Normal [facility] Comment on above: Result Comment: Norm al less than 5.7% Prediabetes 5.7% to 6.4% Diabetes 6.5% or higher --HgbA1C levels may not be accurate in patients who have renal disease, received recent blood transfusions, are anemic, or who have dyshemoglobinemia. Performed By: #### B GLU #### [facility] [address] [place] [address] HbA1c (Bld) [Mass fraction] 5.4 % [facility] Comment on above: Normal less than 5.7 % Prediabetes 5.7% to 6.4% Diabetes 6.5% or higher --HgbA1C levels may not be accurate in patients who have renal disease, received recent blood transfusions, are anemic, or who have dyshemoglobinemia. Magnesium [Mass/Vol] 108 mg/dL [facility] Test Performed by [facility], [address] [place], [place] [address] [facility] Hemogram w/ Autodiffon 03-22 Abs Baso Cnt 0.0 10*3/uL Normal 0.0-0.2 [facility] Comment on above: Performed By: #### B GLU #### [facility] [address] [place] [address] Abs Neutrophile Cnt 12.3 10*3/uL High 1.8-7.0 [facility] Comment on above: Performed By: #### B GLU #### [facility] [address] [place] [address] Basophils/100 WBC (Bld) 0.2 % Normal 0.0-2.0 [facility] Comment on above: Performed By: #### B GLU #### [place] [address] [place] [address] Eosinophils (Bld) [#/Vol] 0.0 10*3/uL Normal 0.0-0.5 [facility] Comment on above: Performed By: #### B GLU #### [facility] [address] [place] [address] Eosinophils/100 WBC (Bld) 0.0 % Low 1.0-6.0 [facility] Comment on above: Performed By: #### B GLU #### [facility] [address] [place] [address] Erythrocyte distribution width (RBC) [Ratio] 12.8 % Normal 11.5-14.5 [facility] Comment on above: Performed By: #### B GLU #### [facility] [address] [place] [address] Granulocytes/100 WBC (Bld) 92.7 % High 40.0-80.0 [facility] Comment on above: Performed By: #### B GLU #### [place] [address] [place] [address] Hematocrit (Bld) [Volume fraction] 35.9 % Low 40.0-52.0 [facility] Comment on above: Performed By: #### B GLU #### [place] [address] [place] [address] Hemoglobin (Bld) [Mass/Vol] 12.4 g/dL Low 13.0-18.0 [facility] Comment on above: Performed By: #### B GLU #### [facility] [address] [place] [address] Lymphocytes (Bld) [#/Vol] 0.5 10*3/uL Low 1.0-4.3 [facility] Comment on above: Performed By: #### B GLU #### [facility] [address] [place] [address] Lymphocytes/100 WBC (Bld) 3.6 % Low 20.0-40.0 [facility] Comment on above: Performed By: #### B GLU #### [facility] [address] [place] [address] MCH (RBC) [Entitic mass] 31.6 pg Normal 26.0-34.0 [facility] Comment on above: Performed By: #### B GLU #### [facility] [address] [place] [address] MCHC 34.6 % Normal 32.0-36.0 [facility] Comment on above: Performed By: #### B GLU #### [facility] [address] [place] [address] MCV (RBC) [Entitic vol] 91.2 fL Normal 80.0-98.0 [facility] Comment on above: Performed By: #### B GLU #### [facility] [address] [place] [address] Monocytes (Bld) [#/Vol] 0.5 10*3/uL Normal 0.0-0.8 [facility] Comment on above: Performed By: #### B GLU #### [facility] [address] [place] [address] Monocytes/100 WBC (Bld) 3.5 % Normal 2.0-10.0 [facility] Comment on above: Performed By: #### B GLU #### [facility] [address] [place] [address] Platelet mean volume (Bld) [Entitic vol] 9.5 fL Normal 7.4-10.4 [facility] Comment on above: Performed By: #### B GLU #### [facility] [address] [place] [address] Platelets (Bld) [#/Vol] 158 10*3/uL Normal 140-440 [facility] Comment on above: Performed By: #### B GLU #### [facility] [address] [place] [address] RBC (Bld) [#/Vol] 3.93 10*6/uL Low 4.40-5.90 [facility] Comment on above: Performed By: #### B GLU #### [facility] [address] [place] [address] WBC (Bld) [#/Vol] 13.3 10*3/uL High 3.6-10.7 [facility] Comment on above: Performed By: #### B GLU #### [facility] [address] [place] [address] MRSA by PCRon 03-22-2021 Staph Aureus Sc No S. aureus detected. Negative nasal MRSA PCR has a high negative predictive value for MRSA pneumonia. Consider stopping vancomycin if no other clinical indication. Contact Antimicrobial Stewardship for further recommendations. The analytical performance characteristics of this assay have been determined by [facility] in accordance with CLIA regulations. The modifications have not been cleared or approved by the U. S. Food and Drug Administration; however, the FDA has determined that such clearance or approval is not necessary. [facility] Test Performed by [facility], [address] [place] [id number] [place] [address] LAB [facility] POCT GlucoseOrdered By: Same er Morgan on 03-22-2021 Glucose [Mass/Vol] 134 mg/dL High 70 - 100 mg/dL [facility] Work Phone: Comment on above: Test performed by gl ucose meter. Results may be 10%-15% lower than serum/plasma values. (CLIA ID [id number]) Interpretation and review of laboratory results Abnormal [facility] Work Phone: [facility] Work Phone: POCT Glucoseon 03-22-2021 Test Performed by [facility], [address] LAB Glucose [Mass/Vol] 190 mg/dL High 70 - 100 mg/dL [facility] Comment on above: Test performed by gl ucose meter. Results may be 10%-15% lower than serum/plasma values. (CLIA ID [id number]) Interpretation and review of laboratory results Abnormal [facility] Test Performed by [facility], [address] LAB [facility] Glucose [Mass/Vol] 200 mg/dL High 70 - 100 mg/dL [facility] Comment on above: Test performed by gl ucose meter. Results may be 10%-15% lower than serum/plasma values. (CLIA ID [id number]) Interpretation and review of laboratory results Abnormal [facility] Test Performed by [facility], [address] LAB [facility] Glucose [Mass/Vol] 181 mg/dL High 70 - 100 mg/dL [facility] Comment on above: Test performed by gl ucose meter. Results may be 10%-15% lower than serum/plasma values. (CLIA ID [id number]) Interpretation and review of laboratory results Abnormal [facility] Test Performed by [facility], [address] LAB [facility] Glucose [Mass/Vol] 186 mg/dL High 70 - 100 mg/dL [facility] Comment on above: Test performed by gl ucose meter. Results may be 10%-15% lower than serum/plasma values. (CLIA ID [id number]) Interpretation and review of laboratory results Abnormal [facility] Test Performed by [facility], [address] LAB [facility] Procalcitoninon 03-22-2021 Procalcitonin 0.09 ng/mL Normal 0.00-0.09 [facility] Comment on above: Performed By: #### H EMD, BMP3 #### [facility] [address] [place] [address] Interpretation See Below [facility] Comment on above: PCT <0.50 = Low risk of severe sepsis and/or septic shock. PCT >2.00 = High risk of severe sepsis and/or septic shock. Procalcitonin 0.09 ng/mL 0.00 - 0.09 ng/mL [facility] Test Performed by [facility], [address] [place] [address] [facility] Staph Aureus Complete Nasalo n 03-22-2021 Staph Aureus Complete Nasal Staph Screen --> Status: F No S. aureus detected. Negative nasal MRSA PCR has a high negative predictive value for MRSA pneumonia. Consider stopping vancomycin if no other clinical indication. Contact Antimicrobial Stewardship for further recommendations. The analytical performance characteristics of this assay have been determined by [employer] in accordance with CLIA regulations. The modifications [...] of this assay have been determined by [employer] in accordance with CLIA regulations. The modifications have not been cleared or approved by the U. S. Food and Drug Administration; however, the FDA has determined that such clearance or approval is not necessary. Normal [facility] Comment on above: Performed By: #### S APCR ####[facility] [employer] [address] [place] [address] Vancomycin Troughon 03-22-20 21 Vancomycin Trough 8.1 ug/mL Low 15.0-20.0 [facility] Comment on above: Result Comment: . Performed By: #### B GLU #### [facility] [employer] [facility] [address] [place] [address] Vancomycin, Troughon 021 Interpretation and review of laboratory results Abnormal [facility] Vancomycin Tr 8.1 ug/mL Low 15.0 - 20.0 ug/mL [facility] Comment on above: . Test Performed by [facility] [employer], [address] [place], [place] [id number] [place] [address] LAB [facility] Basic Metabolic Panelon 03-02 Anion gap [Moles/Vol] 7 mmol/L Normal 3-13 [facility] Comment on above: Performed By: #### H EMDF, BMP3 #### [facility] [address] [place] [address] Calcium [Mass/Vol] 8.1 mg/dL Low 8.4-10.4 [facility] Comment on above: Performed By: #### H EMDF, BMP3 #### [facility] [address] [place] [address] CO2 [Moles/Vol] 26 mmol/L Normal 22-30 [facility] Comment on above: Performed By: #### H EMDF, BMP3 #### [facility] [address] [place] [address] Glucose [Mass/Vol] 156 mg/dL High 70-100 [facility] Comment on above: Performed By: #### H EMDF, BMP3 #### [facility] [address] [place] [address] Urea nitrogen [Mass/Vol] 19 mg/dL High 7-17 [facility] Comment on above: Performed By: #### H EMDF, BMP3 #### [facility] [address] [place] [address] Creatinine [Mass/Vol] 0.53 mg/dL Normal 0.52-1.25 [facility] Comment on above: Performed By: #### H EMDF, BMP3 #### [facility] [address] [place] [address] eGFR OTHER > 90.0 Normal >60 [facility] [...] [facility] [address] [place] [address] GFR/1.73 sq M.predicted among blacks MDRD (S/P/Bld) [Vol rate/Area] mL/min/{1.73_m2} Normal >60 [facility] Comment on above: Performed By: #### H MAYKEL BMP3 #### [facility] [address] [place] [address] Chloride [Moles/Vol] 103 mmol/L Normal 98-107 [facility] Comment on above: Performed By: #### H MAYKEL BMP3 #### [facility] [address] [place] [address] Potassium [Moles/Vol] 3.4 mmol/L Low 3.5-5.1 [facility] Comment on above: Performed By: #### H MAYKEL BMP3 #### [facility] [address] [place] [address] Sodium [Moles/Vol] 136 mmol/L Normal 135-145 [facility] Comment on above: Performed By: #### H MAYKEL BMP3 #### [facility] [address] [place] [address] Basic Metabolic Panel w/ Ref marciano to MGon 03-21-2021 Anion gap [Moles/Vol] 7 mmol/L 3 - 13 mmol/L [facility] Work Phone: Calcium [Mass/Vol] 8.1 mg/dL Low 8.4 - 10. 4 mg/dL [facility] Work Phone: Chloride [Moles/Vol] 103 mmol/L 98 - 10 7 mmol/L [facility] Work Phone: CO2 [Moles/Vol] 26 mmol/L 22 - 30 mmol/L [facility] Work Phone: Creatinine [Mass/Vol] 0.53 mg/dL 0.52 - 1.25 mg/dL [facility] Work Phone: EGFR IF NonAfrican Afghan >90.0 >60 mL/min [facility] Work Phone: Comment on above: KDIGO guidelines [...] MDRD (S/P/Bld) [Vol rate/Area] mL/min/{1.73_m2} >60 mL/min [facility] Work Phone: Glucose [Mass/Vol] 156 mg/dL High 70 - 100 mg/dL [facility] Work Phone: Interpretation and review of laboratory results Abnormal [facility] Work Phone: Potassium [Moles/Vol] 3.4 mmol/L Low 3.5 - 5.1 mmol/L [facility] Work Phone: Sodium [Moles/Vol] 136 mmol/L 135 - 145 mmol/L [facility] Work Phone: Urea nitrogen (BldV) [Mass/Vol] 19 mg/dL High 7 - 17 mg/dL [facility] Work Phone: Test Performed by [facility], [address] [place], [place] [id number] [place] [address] LAB [facility] Work Phone: CBCon 03-21-2021 Hematocrit (Bld) [Volume fraction] 35.4 % Low 40.0 - 52.0 % [facility] Work Phone: Hemoglobin.gastrointest inal spec 1 Ql (Stl) 11.9 g/dL Low 13.0 - 18.0 g/dL [facility] Work Phone: Interpretation and review of laboratory results Abnormal [facility] Work Phone: MCH (RBC) [Entitic mass] 30.5 pg 26.0 - 34.0 pg [facility] Work Phone: MCHC (RBC) [Mass/Vol] 33.7 % 32.0 - 36.0 % [facility] Work Phone: MCV (RBC) [Entitic vol] 90.6 fL 80.0 - 98.0 fL [facility] Work Phone: Platelet distribution width (Bld) [Ratio] 13.1 % 11.5 - 14.5 % [facility] Work Phone: Platelet mean volume (Bld) [Entitic vol] 9.1 fL 7.4 - 10.4 fL [facility] Work Phone: Platelets (Bld) [#/Vol] 136 10*3/uL Low 140 - 440 10*3/uL [facility] Work Phone: RBC (Bld) [#/Vol] 3.91 10*6/uL Low 4.40 - 5.9 0 10*6/uL [facility] Work Phone: WBC (Bld) [#/Vol] 7.1 10*3/uL 3.6 - 10.7 10*3/uL [facility] Work Phone: Test Performed by [facility], [address] [place], [place] [address] [facility] LAB [facility] Work Phone: Glucose,Bedsideon 03-21-2021 Glucose [Mass/Vol] 131 mg/dL High 70-100 [facility] [employer] Comment on above: Result Comment: Test performed by glucose meter. Results may be 10%-15% lower than serum/plasma values. (CLIA ID [id number]) Performed By: #### B GLU #### [facility] [address] [place] [address] Glucose [Mass/Vol] 230 mg/dL High 70-100 [facility] Comment on above: Result Comment: Test performed by glucose meter. Results may be 10%-15% lower than serum/plasma values. (CLIA ID [id number]) Performed By: #### B GLU #### [facility] [address] [place] [address] Hemogramon 03-21-2021 Erythrocyte distribution width (RBC) [Ratio] 13.1 % Normal 11.5-14.5 [facility] Comment on above: Performed By: #### H EMDF, BMP3 #### [facility] [address] [place] [address] Hematocrit (Bld) [Volume fraction] 35.4 % Low 40.0-52.0 [facility] Comment on above: Performed By: #### H EMDF, BMP3 #### [facility] [address] [place] [address] Hemoglobin (Bld) [Mass/Vol] 11.9 g/dL Low 13.0-18.0 [facility] Comment on above: Performed By: #### H EMDF, BMP3 #### [facility] [address] [place] [address] MCH (RBC) [Entitic mass] 30.5 pg Normal 26.0-34.0 [facility] Comment on above: Performed By: #### H EMDF, BMP3 #### [facility] [address] [place] [address] MCHC 33.7 % Normal 32.0-36.0 [facility] Comment on above: Performed By: #### H EMDF, BMP3 #### [facility] [address] [place] [address] MCV (RBC) [Entitic vol] 90.6 fL Normal 80.0-98.0 [facility] Comment on above: Performed By: #### H EMDF, BMP3 #### [facility] [address] [place] [address] Platelet mean volume (Bld) [Entitic vol] 9.1 fL Normal 7.4-10.4 [facility] Comment on above: Performed By: #### H EMDF, BMP3 #### [facility] [address] [place] [address] Platelets (Bld) [#/Vol] 136 10*3/uL Low 140-440 [facility] Comment on above: Performed By: #### H EMDF, BMP3 #### [facility] [address] [place] [address] RBC (Bld) [#/Vol] 3.91 10*6/uL Low 4.40-5.90 [facility] Comment on above: Performed By: #### H EMDF, BMP3 #### [facility] [address] [place] [address] WBC (Bld) [#/Vol] 7.1 10*3/uL Normal 3.6-10.7 [facility] Comment on above: Performed By: #### H EMDF, BMP3 #### [facility] [address] [place] [address] Magnesiumon 03-21-2021 Magnesium [Mass/Vol] 2.2 mg/dL Normal 1.6-2.3 [facility] Comment on above: Performed By: #### H EMDF, BMP3 #### [facility] [address] [place] [address] Magnesium [Mass/Vol] 2.2 mg/dL 1.6 - 2 .3 mg/dL [facility] Work Phone: Test Performed by [facility], [facility] [address] LAB [facility] Work Phone: POCT Glucoseon 03-21-2021 Glucose [Mass/Vol] 131 mg/dL High 70 - 100 mg/dL [facility] Comment on above: Test performed by gl ucose meter. Results may be 10%-15% lower than serum/plasma values. (CLIA ID [id number]) Interpretation and review of laboratory results Abnormal [facility] Test Performed by [facility], [address] LAB [facility] Glucose [Mass/Vol] 230 mg/dL High 70 - 100 mg/dL [facility] Comment on above: Test performed by gl ucose meter. Results may be 10%-15% lower than serum/plasma values. (CLIA ID [id number]) Interpretation and review of laboratory results Abnormal [facility] Test Performed by [facility], [address] [place] [address] [facility] LAB [facility] Procalcitoninon 03-21-2021 Interpretation See Below Normal [facility] Comment on above: Result Comment: PCT <0.50 = Low risk of severe sepsis and/or septic shock. PCT >2.00 = High risk of severe sepsis and/or septic shock. Performed By: #### H MAYKEL BMP3 #### [facility] [address] [place] [address] Basic Metabolic Panelon 03-02 Calcium [Mass/Vol] 8.4 mg/dL Normal 8.4-10.4 [facility] Comment on above: Performed By: #### H MAYKEL BMP3 #### [facility] [address] [place] [address] Anion gap [Moles/Vol] 6 mmol/L Normal 3-13 [facility] Comment on above: Performed By: #### H MAYKEL BMP3 #### [place] [address] [place] [address] CO2 [Moles/Vol] 27 mmol/L Normal 22-30 [facility] Comment on above: Performed By: #### H MAYKEL BMP3 #### [facility] [address] [place] [address] Glucose [Mass/Vol] 106 mg/dL High 70-100 [facility] Comment on above: Performed By: #### H MAYKEL BMP3 #### [facility] [address] [place] [address] Urea nitrogen [Mass/Vol] 14 mg/dL Normal 7-17 [facility] Comment on above: Performed By: #### H ALCIRAF BMP3 #### [facility] [address] [place] [address] Creatinine [Mass/Vol] 0.51 mg/dL Low 0.52-1.25 [facility] Comment on above: Performed By: #### H MAYKEL BMP3 #### [facility] [address] [place] [address] eGFR OTHER > 90.0 Normal >60 [facility] [address] [place] [address] GFR/1.73 sq M.predicted among blacks MDRD (S/P/Bld) [Vol rate/Area] mL/min/{1.73_m2} Normal >60 [facility] Comment on above: Performed By: #### H MAYKEL BMP3 #### [facility] [address] [place] [address] Chloride [Moles/Vol] 104 mmol/L Normal 98-107 [facility] Comment on above: Performed By: #### H EMDF, BMP3 #### [facility] [address] [place] [address] Potassium [Moles/Vol] 3.9 mmol/L Normal 3.5-5.1 [facility] Comment on above: Performed By: #### H EMDF, BMP3 #### [facility] [address] [place] [address] Sodium [Moles/Vol] 137 mmol/L Normal 135-145 [facility] Comment on above: Performed By: #### H MAYKEL BMP3 #### [facility] [employer] [facility] [address] [place], [place] [address] Anion gap [Moles/Vol] 6 mmol/L 3 - 13 mmol/L [facility] Work Phone: Calcium [Mass/Vol] 8.4 mg/dL 8.4 - 10. 4 mg/dL [facility] Work Phone: Chloride [Moles/Vol] 104 mmol/L 98 - 10 7 mmol/L [facility] Work Phone: CO2 [Moles/Vol] 27 mmol/L 22 - 30 mmol/L [facility] Work Phone: Creatinine [Mass/Vol] 0.51 mg/dL Low 0.52 - 1.25 mg/dL [facility] Work Phone: EGFR IF NonAfrican Afghan >90.0 >60 mL/min [facility] Work Phone: Comment on above: KDIGO guidelines [...] MDRD (S/P/Bld) [Vol rate/Area] mL/min/{1.73_m2} >60 mL/min [facility] Work Phone: Glucose [Mass/Vol] 106 mg/dL High 70 - 100 mg/dL [facility] Work Phone: Interpretation and review of laboratory results Abnormal [facility] Work Phone: Potassium [Moles/Vol] 3.9 mmol/L 3.5 - 5.1 mmol/L [facility] Work Phone: Sodium [Moles/Vol] 137 mmol/L 135 - 145 mmol/L [facility] Work Phone: Urea nitrogen (BldV) [Mass/Vol] 14 mg/dL 7 - 17 mg/dL [facility] Work Phone: Test Performed by [facility] [employer], [address] [place], [place] [id number] [place] [address] LAB [facility] Work Phone: C-Reactive Proteinon 03-20- 021 CRP [Mass/Vol] 228.1 mg/L High 0.0-9.9 [facility] Comment on above: Result Comment: . Performed By: #### H EMDF, BMP3 #### [facility] [address] [place] [address] CRP [Mass/Vol] 228.1 mg/L High 0.0 - 9.9 mg/L [facility] Work Phone: Comment on above: . Interpretation and review of laboratory results Abnormal [facility] Work Phone: Test Performed by [facility] [employer], [address] [place], [place] [id number] [place] [address] LAB [facility] Work Phone: COVID and Resp PCR Panelon 05-20-2020 SARS-CoV-2 (COVID-19) RNA SHIRLEY+probe Ql (Unsp spec) COVID and Resp PCR Panel --> Status: F POSITIVE: Respiratory Syncytial Virus DETECTED. _ Expected Result: Not Detected [employer] Upper Respiratory Pathogens PCR Panel can detect the following targets: SARS-CoV-2, Adenovirus, Coronavirus 229E, Coronavirus HKU1, Coronavirus NL63, Coronavirus OC43, Human Metapneumovirus, Human Rhinovirus/Enteroviru s, Influenza A, Influenza B, Parainfluenza Virus 1, Parainfluenza Virus 2, Parainfluenza Virus 3, Parainfluenza Virus 4, Respiratory Syncytial Virus, Bordetella pertussis, Bordetella parapertussis, Chlamydia pneumoniae, Mycoplasma pneumoniae. Method: Real-time PCR. _ Expected Result: Not Detected The [employer] Upper Respiratory Pathogens PCR Panel can detect the following targets: SARS-CoV-2, Adenovirus, Coronavirus 229E, Coronavirus HKU1, Coronavirus NL63, Coronavirus OC43, Human Metapneumovirus, Human Rhinovirus/Enteroviru s, Influenza A, Influenza B, Parainfluenza Virus 1, Parainfluenza Virus 2, Parainfluenza Virus 3, Parainfluenza Virus 4, Respiratory Syncytial Virus, Bordetella pertussis, Bordetella parapertussis, Chlamydia pneumoniae, Mycoplasma pneumoniae. Method: Real-time PCR. 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 : 1955 Requested By: BRADY DESAI Order Number: [id number] Reading : Fei Menjivar Measurements Intervals [place] Rate: 102 P: 71 IN: 172 QRS: -30 QRSD: 156 T: 85 QT: 412 QTc: 537 Interpretive Statements SINUS TACHYCARDIA LEFT BUNDLE BRANCH BLOCK Electronically Signed On 03-20-2021 22:47:41 EST by Fei BARNETT CARDIOLOGY Fei Menjivar MD - 03/20/2021 [facility] Test Date: 2021-03-19 Pat Name: KATHYA HOOPER Department: 1 Room: 465 Gender: M 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 : 1955 Requested By: BRADY DESAI Order Number: [id number] Reading : Fei Menjivar Measurements Intervals [place] Rate: 102 P: 71 IN: 172 QRS: -30 QRSD: 156 T: 85 QT: 412 QTc: 537 Interpretive Statements SINUS TACHYCARDIA LEFT BUNDLE BRANCH BLOCK Electronically Signed On 03-20-2021 22:47:41 EST by Fei BARNETT Work Phone: EKG 12 Lead - Chest PainOrde red By: Fei Menjivar on 03-20-2021 [facility] Work Phone: Lactic Acidon 03-20-2021 Lactate [Moles/Vol] 0.7 mmol/L Normal 0.7-2.0 [facility] [employer] Comment on above: Performed By: #### H EMDF, BMP3 #### [facility] [address] [place] [address] Lactic Acid, Plasmaon 2020 Lactate [Moles/Vol] 0.7 mmol/L 0.7 - 2. 0 mmol/L [facility] Work Phone: Test [facility]formed by [facility], [address] [place], [place] [id number] [place] [address] LAB [facility] Work Phone: PROCALCITONINon 03-20-2021 Interpretation See Below [facility] Work Phone: Comment on above: PCT <0.50 = Low risk of severe sepsis and/or septic shock. PCT >2.00 = High risk of severe sepsis and/or septic shock. Interpretation and review of laboratory results Abnormal [facility] Work Phone: Test Performed by [facility], [address] [place] [address] [facility] LAB [facility] Work Phone: Procalcitoninon 03-20-2021 Procalcitonin 0.14 ng/mL High 0.00-0.09 [facility] Work Phone: Comment on above: Performed By: #### H EMDF, BMP3 #### [facility] [address] [place] [address] Interpretation See Below Normal [facility] Comment on above: Result Comment: PCT <0.50 = Low risk of severe sepsis and/or septic shock. PCT >2.00 = High risk of severe sepsis and/or septic shock. Performed By: #### H EMDF, BMP3 #### [facility] [address] [place] [place] [address] Troponinon 03-20-2021 Interpretation and review of laboratory results Abnormal [facility] Work Phone: Troponin I.cardiac [Mass/Vol] 0.037 ng/mL High 0.000 - 0.034 ng/mL [facility] Work Phone: Comment on above: . Test Performed by [facility], [address] [place] [address] [facility] LAB [facility] Work Phone: Troponin Ion 03-20-2021 Troponin I.cardiac [Mass/Vol] 0.037 ng/mL High 0.000-0.034 [facility] Comment on above: Result Comment: . Performed By: #### H EMDF, BMP3 #### [facility] [address] [place] [address] Arterial Blood Gas Respirato yasmine 03-19-2021 Base Excess 1.2 mmol/L Normal -3.0-3.0 [facility] Comment on above: Performed By: #### B GLU #### [facility] [address] [place] [address] CO2 [Moles/Vol] 25.6 mmol/L Normal 23.0-27.0 [facility] Comment on above: Performed By: #### B GLU #### [facility] [address] [place] [address] FIO2 5 Normal [facility] Comment on above: Result Comment: Perf ormed by CLIA ID: [id number] [place], [place] Performed By: #### B GLU #### [facility] [address] [place] [address] HCO3 (Bld) [Moles/Vol] 24.6 mmol/L Normal 21.0-25.0 [facility] Comment on above: Performed By: #### B GLU #### [facility] [address] [place] [address] Oxygen (Bld) [Partial pressure] 56.7 mm[Hg] Low 80.0-100.0 [facility] Comment on above: Performed By: #### B GLU #### [facility] [address] [place] [address] Oxygen saturation in Blood 91.0 % Low 95.0-100.0 [facility] Comment on above: Performed By: #### B GLU #### [facility] [address] [place] [address] pCO2 33.9 mm[Hg] Low 35.0-45.0 [facility] Comment on above: Performed By: #### B GLU #### [facility] [address] [place] [address] pH 7.468 High 7.350-7.450 [facility] Comment on above: Performed By: #### B GLU #### [facility] [address] [place] [address] Basic Metabolic Panelon 11-1 Anion gap [Moles/Vol] 9 mmol/L Normal 3-13 [facility] Comment on above: Performed By: #### B MP3, TROPN ####[facility] [place] [address] Calcium [Mass/Vol] 8.5 mg/dL Normal 8.4-10.4 [facility] Comment on above: Performed By: #### B MP3, TROPN ####[facility] [place] [address] CO2 [Moles/Vol] 26 mmol/L Normal 22-30 [facility] Comment on above: Performed By: #### B MP3, TROPN ####[facility] [place] [address] Creatinine [Mass/Vol] 0.48 mg/dL Low 0.52-1.25 [facility] Comment on above: Performed By: #### B MP3, TROPN ####[facility] [place] [address] eGFR OTHER > 90.0 Normal >60 [facility] [...] secretion. Performed By: #### B MP3, TROPN ####[place] [address] [place] [address] GFR/1.73 sq M.predicted among blacks MDRD (S/P/Bld) [Vol rate/Area] mL/min/{1.73_m2} Normal >60 [facility] Comment on above: Performed By: #### B MP3, TROPN ####[place] [address] [place] [address] Glucose [Mass/Vol] 132 mg/dL High 70-100 [facility] Comment on above: Performed By: #### B MP3, TROPN ####[address] [place] [address] Urea nitrogen [Mass/Vol] 16 mg/dL Normal 7-17 [facility] Comment on above: Performed By: #### B MP3, TROPN ####[place] [address] [place] [address] Chloride [Moles/Vol] 102 mmol/L Normal 98-107 [facility] Comment on above: Performed By: #### B MP3, TROPN ####[place] [address] [place] [address] Potassium [Moles/Vol] 4.1 mmol/L Normal 3.5-5.1 [facility] Comment on above: Performed By: #### B MP3, TROPN ####[place] [address] [place] [address] Sodium [Moles/Vol] 137 mmol/L Normal 135-145 [facility] Comment on above: Performed By: #### B MP3, TROPN ####[place] [address] [place] [address] Anion gap [Moles/Vol] 9 mmol/L 3 - 13 mmol/L [facility] Calcium [Mass/Vol] 8.5 mg/dL 8.4 - 10. 4 mg/dL [facility] Chloride [Moles/Vol] 102 mmol/L 98 - 10 7 mmol/L [facility] CO2 [Moles/Vol] 26 mmol/L 22 - 30 mmol/L [facility] Creatinine [Mass/Vol] 0.48 mg/dL Low 0.52 - 1.25 mg/dL [facility] EGFR IF NonAfrican Afghan >90.0 >60 mL/min [facility] Comment on above: [...] 132 mg/dL High 70 - 100 mg/dL [facility] Interpretation and review of laboratory results Abnormal [facility] Potassium [Moles/Vol] 4.1 mmol/L 3.5 - 5.1 mmol/L [facility] Sodium [Moles/Vol] 137 mmol/L 135 - 145 mmol/L [facility] Urea nitrogen (BldV) [Mass/Vol] 16 mg/dL 7 - 17 mg/dL [facility] Test Performed by [facility], [address] [place], [place] [address] [facility] CBC Auto Differentialon 11- Absolute Baso # 0.1 10*3/uL 0.0 - 0.2 10*3/uL [facility] Absolute Neut # 7.2 10*3/uL High 1.8 - 7.0 10*3/uL [facility] Hemoglobin.gastrointest inal spec 1 Ql (Stl) 13.1 g/dL 13.0 - 18.0 g/dL [facility] MCHC (RBC) [Mass/Vol] 33.9 % 32.0 - 36.0 % [facility] Platelet distribution width (Bld) [Ratio] 13.0 % 11.5 - 14.5 % [facility] COVID-19, Flu A/B, and RSV C omboon 03-19-2021 Influenza A by PCR Not detected [facility] Influenza B by PCR Not detected [facility] Interpretation and review of laboratory results Abnormal [facility] RSV PCR DETECTED Expected Result: Not Detected _ Method: Real-time, RT-PCR This assay was developed by [employer] and distributed under an Emergency Use Authorization (EUA) granted by the FDA for the qualitative detection of nucleic acids from SARS-CoV-2, Influenza A, Influenza B, and Respiratory Syncytial Virus. Provider and patient fact sheets can be found at https://www.fda.gov/m edia/399011/download and https://www.fda.gov/m edia/795186/download. Abnormal [facility] SARS-CoV-2 (COVID-19) RNA SHIRLEY+probe Ql (Unsp spec) Not detected [facility] Test Performed by [facility], [address] [place] [address] LAB [facility] CR Chest Portableon 03-19-20 21 CR Chest Portable Patient Name: KATHYA HOOPER Diagnostic Radiology ACCESSION EXAM DATE/TIME PROCEDURE ORDERING PROVIDER [id number] 03/19/2021 17:10 EST CR Chest Portable [id number] BRADY WILKINS CPT code 84869 Reason For Exam (CR Chest Portable) hypoxia [...] Noteon ED Provider Note Emergency Department Encounter [facility] ED Patient: Kathya Hooper : 1955 Date of Evaluation: 03/19/2021 ED Provider: Brady Desai, DO Chief Complaint Chief Complaint Patient presents with ? Shortness of Breath [place] I wore appropriate PPE for the entirety of this encounter. Does this patient come from an ECF, SNF, Rehab, Fci or other Congregate setting: yes (If yes [...] otherwise acutely negative except as in the [place]. Past History Past Medical History: Diagnosis Date [...] and Family: Not on file ? Attends Synagogue Services: Not on file ? Active Member [...] Abs Baso Cnt 0.1 10*3/uL Normal 0.0-0.2 [facility] Comment on above: Performed By: #### B GLU #### [facility] [address] [place] [address] Abs Neutrophile Cnt 7.2 10*3/uL High 1.8-7.0 [facility] Comment on above: Performed By: #### B GLU #### [facility] [address] [place] [address] Basophils/100 WBC (Bld) 0.6 % Normal 0.0-2.0 [facility] Comment on above: Performed By: #### B GLU #### [facility] [address] [place] [address] Eosinophils (Bld) [#/Vol] 0.0 10*3/uL Normal 0.0-0.5 [facility] Comment on above: Performed By: #### B GLU #### [facility] [address] [place] [address] Eosinophils/100 WBC (Bld) 0.2 % Low 1.0-6.0 [facility] Comment on above: Performed By: #### B GLU #### [facility] [address] [place] [address] Erythrocyte distribution width (RBC) [Ratio] 13.0 % Normal 11.5-14.5 [facility] Comment on above: Performed By: #### B GLU #### [facility] [address] [place] [address] Granulocytes/100 WBC (Bld) 79.0 % Normal 40.0-80.0 [facility] Comment on above: Performed By: #### B GLU #### [facility] [address] [place] [address] Hematocrit (Bld) [Volume fraction] 38.5 % Low 40.0-52.0 [facility] Comment on above: Performed By: #### B GLU #### [facility] [address] [place] [address] Hemoglobin (Bld) [Mass/Vol] 13.1 g/dL Normal 13.0-18.0 [facility] Comment on above: Performed By: #### B GLU #### [place] [address] [place] [address] Lymphocytes (Bld) [#/Vol] 1.0 10*3/uL Normal 1.0-4.3 [facility] Comment on above: Performed By: #### B GLU #### [facility] [address] [place] [address] Lymphocytes/100 WBC (Bld) 10.8 % Low 20.0-40.0 [facility] Comment on above: Performed By: #### B GLU #### [facility] [address] [place] [address] MCH (RBC) [Entitic mass] 30.9 pg Normal 26.0-34.0 [facility] Comment on above: Performed By: #### B GLU #### [facility] [address] [place] [address] MCHC 33.9 % Normal 32.0-36.0 [facility] Comment on above: Performed By: #### B GLU #### [facility] [address] [place] [address] MCV (RBC) [Entitic vol] 91.1 fL Normal 80.0-98.0 [facility] Comment on above: Performed By: #### B GLU #### [facility] [address] [place] [address] Monocytes (Bld) [#/Vol] 0.9 10*3/uL High 0.0-0.8 [facility] Comment on above: Performed By: #### B GLU #### [facility] [address] [place] [address] Monocytes/100 WBC (Bld) 9.4 % Normal 2.0-10.0 [facility] Comment on above: Performed By: #### B GLU #### [facility] [address] [place] [address] Platelet mean volume (Bld) [Entitic vol] 9.9 fL Normal 7.4-10.4 [facility] Comment on above: Performed By: #### B GLU #### [facility] [address] [place] [address] Platelets (Bld) [#/Vol] 163 10*3/uL Normal 140-440 [facility] Comment on above: Performed By: #### B GLU #### [facility] [address] [place] [address] RBC (Bld) [#/Vol] 4.23 10*6/uL Low 4.40-5.90 [facility] Comment on above: Performed By: #### B GLU #### [facility] [address] [place] [address] WBC (Bld) [#/Vol] 9.1 10*3/uL Normal 3.6-10.7 [facility] Comment on above: Performed By: #### B GLU #### [facility] [address] [place] [address] Lactic Acidon 03-19-2021 Lactate [Moles/Vol] 2.3 mmol/L Critically high 0.7-2.0 [facility] Comment on above: Performed By: #### L ACT3 ####[facility] [place] [address] Lactic Acid, Plasmaon 2020 Lactate [Moles/Vol] 2.3 mmol/L Critically high 0.7 - 2.0 mmol/L [facility] No Panel Informationon 03-19 Interpretation and review of laboratory results Abnormal [facility] Test Performed by [facility], [address] [place], [place] [address] [facility] RBC MORPHOLOGYon 03-19-2021 Poikilocytes Slight [facility] RBC (Bld) [#/Vol] ABNORMAL [facility] Tear Drop Cells Slight [facility] RBC Morphologyon 03-19-2021 Ovalocytes Slight Normal [facility] Comment on above: Performed By: #### B GLU #### [facility] [address] [place] [address] Poikilocytosis Slight Normal [facility] Comment on above: Performed By: #### B GLU #### [facility] [address] [place] [address] Polychromasia Slight Normal [facility] Comment on above: Performed By: #### B GLU #### [facility] [address] [place] [address] RBC morphology finding Nom (Bld) ABNORMAL Normal [facility] Comment on above: Performed By: #### B GLU #### [facility] [address] [place] [address] Tear Drop Forms Slight Normal [facility] Comment on above: Performed By: #### B GLU #### [facility] [address] [place] [address] Respiratory Panel, Molecular , with COVID-19 (Restricted: peds pts or suitable admitted adults)on 03-19-2021 Interpretation and review of laboratory results Abnormal [facility] Respiratory Panel Molecular, with COVID POSITIVE: Respiratory Syncytial Virus DETECTED. _ Expected Result: Not Detected The [employer] Upper Respiratory Pathogens PCR Panel can detect the following targets: SARS-CoV-2, Adenovirus, Coronavirus 229E, Coronavirus HKU1, Coronavirus NL63, Coronavirus OC43, Human Metapneumovirus, Human Rhinovirus/Enteroviru s, Influenza A, Influenza B, Parainfluenza Virus 1, Parainfluenza Virus 2, Parainfluenza Virus 3, Parainfluenza Virus 4, Respiratory Syncytial Virus, Bordetella pertussis, Bordetella parapertussis, Chlamydia pneumoniae, Mycoplasma pneumoniae. Method: Real-time PCR. Abnormal [facility] Test Performed by [facility], [address] [place] [address] [facility] SARS-CoV-2, Flu A/B and RSVo n 03-19-2021 SARS-CoV-2 (COVID-19) RNA SHIRLEY+probe Ql (Unsp spec) SARS-CoV-2 --> Status: F Not Detected. Flu A PCR --> Status: F Not Detected. Flu B PCR --> Status: F Not Detected. RSV PCR --> Status: F DETECTED Expected Result: Not Detected _ Method: Real-time, RT-PCR This assay was developed by [employer] and distributed under an Emergency Use Authorization (EUA) granted by the FDA for the qualitative detection of nucleic acids from SARS-CoV-2, Influenza A, Influenza B, and Respiratory Syncytial Virus. Provider and patient fact sheets can be found at https://www.fda.gov/m edia/381663/download and https://www.fda.gov/ edia/682030/download. Expected Result: Not Detected _ Method: Real-time, RT-PCR This assay was developed by [employer] and distributed under an Emergency Use Authorization (EUA) granted by the FDA for the qualitative detection of nucleic acids from SARS-CoV-2, Influenza A, Influenza B, and Respiratory Syncytial Virus. Provider and patient fact sheets can be found at https://www.fda.gov/m edia/464908/download and https://www.fda.gov/m edia/068779/download. Abnormal [facility] [employer] [facility] Comment on above: Performed By: #### C VFLR #### [facility] [address] [place] [address] , [address] Troponinon 03-19-2021 Troponin I.cardiac [Mass/Vol] 0.017 ng/mL 0.000 - 0.034 ng/mL [facility] Comment on above: . Test Performed by [facility] [employer] [facility], [address], [place], [place] [address] [facility] Troponin Ion 03-19-2021 Troponin I.cardiac [Mass/Vol] 0.017 ng/mL Normal 0.000-0.034 [facility] Comment on above: Result Comment: . Performed By: #### B MP3, [facility] ####[facility] [place] [address] XR CHEST PORTABLEon 03-19-20 Patient Name: KATHYA HOOPER Diagnostic Radiology ACCESSION EXAM DATE/TIME PROCEDURE ORDERING PROVIDER [id number] 03/19/2021 17:10 EST CR Chest Portable [id number] -NESHEIM, BRADY CPT code 40376 Reason For Exam (CR Chest Portable) hypoxia [...] Date and Time: 03/19/2021 5:22 NORMA BARNETT [facility] Keshawn Simpson MD - 03/19/2021 Patient Name: KATHYA HOOPER Diagnostic Radiology ACCESSION EXAM DATE/TIME PROCEDURE ORDERING PROVIDER [id number] 03/19/2021 17:10 EST CR Chest Portable [id number] -NESHEIM, BRADY CPT code 21389 Reason For Exam (CR Chest Portable) hypoxia [...] J Transcribed Date and Time: 03/19/2021 5:22 [facility] Work [facility]: Radiology Study observation (narrative) [facility] Work Phone: XR CHEST PORTABLEOrdered By: Keshawn Simpson on 03-19-2021 [facility] Work Phone: Basic Metabolic Panelon 03-01 Calcium [Mass/Vol] 8.4 mg/dL Normal 8.4-10.4 [facility] Comment on above: Performed By: #### H EMDF, BMP3 #### [facility] [employer] [facility] [address] [place] [address] Glucose [Mass/Vol] 110 mg/dL High 70-100 [facility] Comment on above: Performed By: #### H EMDF, BMP3 #### [facility] [address] [place] [address] Anion gap [Moles/Vol] 7 mmol/L Normal 3-13 [facility] Comment on above: Performed By: #### H EMDF, BMP3 #### [facility] [facility] [address] [place] [address] CO2 [Moles/Vol] 26 mmol/L Normal 22-30 [facility] Comment on above: Performed By: #### H EMDF, BMP3 #### [facility] [address] [place] [address] Creatinine [Mass/Vol] 0.54 mg/dL Normal 0.52-1.25 [facility] Comment on above: Performed By: #### H EMDF, BMP3 #### [facility] [address] [place] [address] eGFR OTHER > 90.0 Normal >60 [facility] [...] [facility] [address] [place] [address] GFR/1.73 sq M.predicted among blacks MDRD (S/P/Bld) [Vol rate/Area] mL/min/{1.73_m2} Normal >60 [facility] Comment on above: Performed By: #### Kerri BRAR BMP3 #### [facility] [address] [place] [address] Urea nitrogen [Mass/Vol] 18 mg/dL High 7-17 [facility] Comment on above: Performed By: #### Kerri BRAR BMP3 #### [facility] [address] [place] [address] Potassium [Moles/Vol] 3.9 mmol/L Normal 3.5-5.1 [facility] Comment on above: Performed By: #### Kerri BRAR BMP3 #### [facility] [address] [place] [address] Chloride [Moles/Vol] 104 mmol/L Normal 98-107 [facility] Comment on above: Performed By: #### Kerri BRAR BMP3 #### [facility] [address] [place] [address] Sodium [Moles/Vol] 137 mmol/L Normal 135-145 [facility] Comment on above: Performed By: #### Kerri BRAR BMP3 #### [facility] [address] [place], [place] [address] Anion gap [Moles/Vol] 7 mmol/L 3 - 13 mmol/L [facility] Calcium [Mass/Vol] 8.4 mg/dL 8.4 - 10. 4 mg/dL [facility] Chloride [Moles/Vol] 104 mmol/L 98 - 10 7 mmol/L [facility] CO2 [Moles/Vol] 26 mmol/L 22 - 30 mmol/L [facility] Creatinine [Mass/Vol] 0.54 mg/dL 0.52 - 1.25 mg/dL [facility] EGFR IF NonAfrican Afghan >90.0 >60 mL/min [facility] Comment on above: [...] 110 mg/dL High 70 - 100 mg/dL [facility] Interpretation and review of laboratory results Abnormal [facility] Potassium [Moles/Vol] 3.9 mmol/L 3.5 - 5.1 mmol/L [facility] Sodium [Moles/Vol] 137 mmol/L 135 - 145 mmol/L [facility] Urea nitrogen (BldV) [Mass/Vol] 18 mg/dL High 7 - 17 mg/dL [facility] Brain Natriuretic Peptideon 03-18-2021 Interpretation and review of laboratory results Abnormal [facility] Natriuretic peptide B (Bld) [Mass/Vol] 710 pg/mL High 0 - 125 pg/mL [facility] Test Performed by [facility] Formerly [facility], [address] [place], [place], [place] [id number] [place] [address] LAB [facility] CBC Auto Differentialon 03-01 Absolute Baso [...] Performed by [facility], [address] [place], [place] [id number] [place] [address] LAB [facility] COVID-19, Flu A/B, and RSV C omboon 03-18-2021 Influenza A by PCR Not detected [facility] A Influenza B by PCR Not detected [facility] A Interpretation and review of laboratory results Abnormal [facility] RSV PCR DETECTED Expected Result: Not Detected _ Method: Real-time, RT-PCR This assay was developed by [employer] and distributed under an Emergency Use Authorization (EUA) granted by the FDA for the qualitative detection of nucleic acids from SARS-CoV-2, Influenza A, Influenza B, and Respiratory Syncytial Virus. Provider and patient fact sheets can be found at https://www.fda.gov/m edia/656624/download and https://www.fda.gov/m edia/364255/download. Abnormal [facility] SARS-CoV-2 (COVID-19) RNA SHIRLEY+probe Ql (Unsp spec) Not detected [facility] Test Performed by [facility], [address] [place], [place] [id number] [place] [address] LAB [facility] CR Chest Portableon 03-18-20 21 CR Chest Portable Patient Name: KATHYA HOOPER Diagnostic Radiology ACCESSION EXAM DATE/TIME PROCEDURE ORDERING PROVIDER [id number] 03/18/2021 15:30 EST CR Chest Portable [id number] BOO CASTRO CPT code 71310 Reason For Exam (CR Chest Portable) sob, [...] Tomography ACCESSION EXAM DATE/TIME PROCEDURE ORDERING PROVIDER [id number] 03/18/2021 16:27 EST CTA Chest w/ + w/o 022926 -MOSCA, Contrast BOO CPT code 78079 Q9967 Reason For Exam (CTA Chest w/ [...] MALAY Transcribed Date and Time: 03/18/2021 4:36 NORMA BARNETT [facility] Malcolm Michaels MD - 03/18/2021 Patient Name: KATHYA HOOPER Computed Tomography ACCESSION EXAM DATE/TIME PROCEDURE ORDERING PROVIDER [id number] 03/18/2021 16:27 EST CTA Chest w/ + w/o 856404 -MOSCA, Contrast BOO CPT code 14016 Q9967 Reason For Exam (CTA Chest w/ [...] MALAY Transcribed Date and Time: 03/18/2021 4:36 [facility] Work Phone: Radiology Study observation (narrative) [facility] Work Phone: CTA Chest W WO (PE study)Ord ered By: Malcolm Michaels on 03-18-2021 [facility] Work Phone: CTA Chest w/ + w/o Contrasto n 03-18-2021 CTA Chest w/ + w/o Contrast Patient Name: KATHYA HOOPER Computed Tomography ACCESSION EXAM DATE/TIME PROCEDURE ORDERING PROVIDER [id number] 03/18/2021 16:27 EST CTA Chest w/ + w/o 431763 -CASTRO, Contrast BOO CPT code 83971 Q9967 Reason For Exam (CTA Chest w/ + w/o Contrast) pulmonary embolus Report CTA chest with and without contrast History: chest pain Protocol: 1 mm images after IV contrast, 3D rendering performed by wy on a separate workstation No evidence of [...] Tomography ACCESSION EXAM DATE/TIME PROCEDURE ORDERING PROVIDER [id number] 03/18/2021 16:26 EST CTA Head/Neck w/ + w/o 305457 -CASTRO, contrast BOO CPT code 14449 13059 Q9967 Reason For Exam (CTA Head/Neck w/ [...] OSAMA Transcribed Date and Time: 03/18/2021 4:52 [facility] RAD Greyson Rai MD - 03/18/2021 [id number] ACCESSION EXAM DATE/TIME PROCEDURE ORDERING PROVIDER [id number] 03/18/2021 16:26 EST CTA Head/Neck w/ + w/o 551766 alyson ARCHIBALD CPT code 12326 43238 Q9967 Reason For Exam (CTA Head/Neck w/ [...] Tomography ACCESSION EXAM DATE/TIME PROCEDURE ORDERING PROVIDER [id number] 03/18/2021 16:26 EST CTA Head/Neck w/ + w/o 321039 alyson ARCHIBALD CPT code 09844 18525 Q9967 Reason For Exam (CTA Head/Neck w/ [...] ED Provider Noteon ED Provider Note Anamika [facility] ED EMERGENCY DEPARTMENT ENCOUNTER Pt Name: Kathya [...] patient come from an ECF, SNF, Rehab, Fci or other Congregate setting: no (If yes to above patient needs a Covid-19 test) HPI Kathya Hooper is a 66 y.o. 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 [address] Abs Neutrophile Cnt 7.3 10*3/uL High 1.8-7.0 [facility] Comment on above: Performed By: #### H MAYKEL BMP3 #### [facility] [address] [place] [address] Basophils/100 WBC (Bld) 0.5 % Normal 0.0-2.0 [facility] Comment on above: Performed By: #### H EMDF, BMP3 #### [facility] [address] [place] [address] Eosinophils (Bld) [#/Vol] 0.0 10*3/uL Normal 0.0-0.5 [facility] Comment on above: Performed By: #### H EMDF, BMP3 #### [facility] [address] [place] [address] Eosinophils/100 WBC (Bld) 0.1 % Low 1.0-6.0 [facility] Comment on above: Performed By: #### H EMDF, BMP3 #### [facility] Formerly [facility] [address] [place] [address] Erythrocyte distribution width (RBC) [Ratio] 12.9 % Normal 11.5-14.5 [facility] Comment on above: Performed By: #### H EMDF, BMP3 #### [facility] [address] [place] [address] Granulocytes/100 WBC (Bld) 82.8 % High 40.0-80.0 [facility] Comment on above: Performed By: #### H EMDF, BMP3 #### [facility] Formerly [facility] [address] [place] [address] Hematocrit (Bld) [Volume fraction] 38.3 % Low 40.0-52.0 [facility] Comment on above: Performed By: #### H EMDF, BMP3 #### [facility] Former[facility] [address] [place] [address] Hemoglobin (Bld) [Mass/Vol] 13.6 g/dL Normal 13.0-18.0 [facility] Comment on above: Performed By: #### H EMDF, BMP3 #### [facility] Former[facility] [address] [place] [address] Lymphocytes (Bld) [#/Vol] 0.7 10*3/uL Low 1.0-4.3 [facility] Comment on above: Performed By: #### H EMDF, BMP3 #### [facility] Former[facility] [address] [place] [address] Lymphocytes/100 WBC (Bld) 7.6 % Low 20.0-40.0 [facility] Comment on above: Performed By: #### H EMDF, BMP3 #### [facility] [address] [place] [address] MCH (RBC) [Entitic mass] 32.0 pg Normal 26.0-34.0 [facility] Comment on above: Performed By: #### H EMDF, BMP3 #### [facility] [address] [place] [address] MCHC 35.4 % Normal 32.0-36.0 [facility] Comment on above: Performed By: #### H EMDF, BMP3 #### [facility] [address] [place] [address] MCV (RBC) [Entitic vol] 90.2 fL Normal 80.0-98.0 [facility] Comment on above: Performed By: #### H EMDF, BMP3 #### [facility] [address] [place] [address] Monocytes (Bld) [#/Vol] 0.8 10*3/uL Normal 0.0-0.8 [facility] Comment on above: Performed By: #### H EMDF, BMP3 #### [facility] [address] [place] [address] Monocytes/100 WBC (Bld) 9.0 % Normal 2.0-10.0 [facility] Comment on above: Performed By: #### H EMDF, BMP3 #### [facility] [address] [place] [address] Platelet mean volume (Bld) [Entitic vol] 9.8 fL Normal 7.4-10.4 [facility] Comment on above: Performed By: #### H EMDF, BMP3 #### [facility] [address] [place] [address] Platelets (Bld) [#/Vol] 129 10*3/uL Low 140-440 [facility] Comment on above: Performed By: #### H EMDF, BMP3 #### [facility] [address] [place] [address] RBC (Bld) [#/Vol] 4.24 10*6/uL Low 4.40-5.90 [facility] Comment on above: Performed By: #### H EMDF, BMP3 #### [facility] [address] [place] [address] WBC (Bld) [#/Vol] 8.8 10*3/uL Normal 3.6-10.7 [facility] Comment on above: Performed By: #### H MAYKEL BMP3 #### [facility] [address] [place] [address] MAGNESIUMon 03-18-2021 Magnesium [Mass/Vol] 2.0 mg/dL 1.6 - 2 .3 mg/dL [facility] Magnesiumon 03-18-2021 Magnesium [Mass/Vol] 2.0 mg/dL Normal 1.6-2.3 [facility] Comment on above: Performed By: #### H MAYKEL BMP3 #### [facility] [address] [place] [address] NT pro BNPon 03-18-2021 Natriuretic peptide B (Bld) [Mass/Vol] 710 pg/mL High 0-125 [facility] Comment on above: Performed By: #### H MAYKEL BMP3 #### [facility] [address] [place] [address] No Panel Informationon 03-18 Test Performed by [facility], [address] [place] [address] Str. [place], [place] [id number] [place] [address] LAB [facility] PROTIME/INR & PTTon 03-18-20 21 aPTT Coag (Bld) [Time] 30.7 s High 20.0 - 30.5 s [facility] Comment on above: NOTE: The therapeuti c time for Heparin anticoagulation, based on Xa activity inhibition, is an APTT of 46-80 seconds. INR Coag (Bld) [Relative time] 1.1 {INR} [facility] Comment on above: Recommended Anticoag ulant [...] Interpretation and review of laboratory results Abnormal [facility] PT Coag (PPP) [Time] 11.4 s 9.0 - 12.0 s [facility] Comment on above: . Test Performed by [facility], [address] [place], [place] [address] [facility] Protime AND APTTon aPTT Coag (Bld) [Time] 30.7 s High 20.0-30.5 [facility] Comment on above: Result Comment: NOTE : The therapeutic time for Heparin anticoagulation, based on Xa activity inhibition, is an APTT of 46-80 seconds. Performed By: #### H MAYKEL BMP3 #### [facility] [address] [place] [address] INR 1.1 Normal 0.9-1.1 [facility] Comment [...] BMP3 #### [facility] [address] [place] [address] PT Coag (PPP) [Time] 11.4 s Normal 9.0-12.0 [facility] Comment on above: Result Comment: . Performed By: #### H MAYKEL, BMP3 #### [facility] [address] [place] [address] SARS-CoV-2, Flu A/B and RSVo n 03-18-2021 SARS-CoV-2 (COVID-19) RNA SHIRLEY+probe Ql (Unsp spec) SARS-CoV-2 --> Status: F Not Detected. Flu A PCR --> Status: F Not Detected. Flu B PCR --> Status: F Not Detected. RSV PCR --> Status: F DETECTED Expected Result: Not Detected _ Method: Real-time, RT-PCR This assay was developed by [employer] and distributed under an Emergency Use Authorization (EUA) granted by the [facility] for the qualitative detection of nucleic acids from SARS-CoV-2, Influenza A, Influenza B, and Respiratory Syncytial Virus. Provider and patient fact sheets can be found at https://www.[facility]/ edia/317953/download and https://www.[facility]/ edia/147357/download. Expected Result: Not Detected _ Method: Real-time, RT-PCR This assay was developed by [employer] and distributed under an Emergency Use Authorization (EUA) granted by the [facility] for the qualitative detection of nucleic acids from SARS-CoV-2, Influenza A, Influenza B, and Respiratory Syncytial Virus. Provider and patient fact sheets can be found at https://www.[facility]/ edia/636013/download and https://www.[facility]/ edia/722495/download. Abnormal [facility] Comment on above: Performed By: #### C VFLR #### [facility] [address] [place] [address] , [address] TS GELon 03-18-2021 TS GEL ABO Group: O Rh, Gel: POS Antibody Screen Gel: NEG Normal [facility] Comment on above: Performed By: #### T SGL #### [facility] Former[facility] TYPE AND SCREENon 03-18-2021 ABO Grouping O [facility] Rh Type Positive [facility] Test Performed by [facility], [address] [place], [place] [id number] [place] [address] [facility] X[facility] CHEST PORTABLEon 03-18-20 Patient Name: KATHYA HOOPER Diagnostic Radiology ACCESSION EXAM DATE/TIME PROCEDURE ORDERING PROVIDER [id number] 03/18/2021 15:30 EST CR Chest Portable [id number] -BOO CASTRO CPT code 73180 Reason For Exam (CR Chest Portable) sob, [...] KRIKOR Transcribed Date and Time: 03/18/2021 3:35 [facility] MD - 03/18/2021 [facility]: [id number] Diagnostic Radiology ACCESSION EXAM DATE/TIME PROCEDURE ORDERING PROVIDER [id number] 03/18/2021 15:30 EST CR Chest Portable [id number] -BOO CASTRO CPT code 92328 Reason For Exam (CR Chest Portable) sob, [...] KRIKOR Transcribed Date and Time: 03/18/2021 3:35 [facility] Work Phone: Radiology Study observation (narrative) [facility] Work Phone: XR CHEST PORTABLEOrdered By: Alejandra Munoz on 03-18-2021 [facility] Work Phone: ED Provider Noteon 1 ED Provider Note - Attestation signed by Edwin Montejo MD at 10/31/2020 7:09 AM Emergency Medicine Attending Note This patient was seen and treated independently by the social professionals. I was present and available in the [...] Fluoroscopy ACCESSION EXAM DATE/TIME PROCEDURE ORDERING PROVIDER [id number] 10/30/2020 15:07 EDT RF Intro Long GI Tube w/ KRISTA TOLEDO AMY L Fluoro CPT code 51496 Reason For Exam (RF Intro Long GI [...] on --- Final --- Dictating Physician: MD MAGGI, KESHAWN Pineda Signed Date and Time: 10/30/2020 4:05 pm Signed by: MD SIMPSON ANTHONY J Transcribed Date and Time: 10/30/2020 4:06 [facility] Work Phone: Jaquan, [facility] Incoming Radiology Results From [facility] - 10/30/2020 4:07 PM EDT Patient Name: KATHYA HOOPER Fluoroscopy ACCESSION EXAM DATE/TIME PROCEDURE ORDERING PROVIDER [id number] 10/30/2020 15:07 EDT RF Intro Long GI Tube w/ KRISTA TOLEDO AMY L Fluoro CPT code 72042 Reason For Exam (RF Intro Long GI [...] Fluoroscopy ACCESSION EXAM DATE/TIME PROCEDURE ORDERING PROVIDER [id number] 10/30/2020 15:07 EDT RF Intro Long GI Tube w/ KRISTA TOLEDO, HELEN Rojas CPT code 80221 Reason For Exam (RF Intro Long GI [...] J Transcribed Date and Time: 10/30/2020 4:06 [facility] ED Provider Noteon ED Provider Note [facility] EMERGENCY DEPARTMENT ENCOUNTER Pt Name: Kathya [...] Gatherings with Friends and Family: ? Attends Synagogue Services: ? Active Member of Clubs or [...] Soft, non-distended (more content not included)... Normal [facility] [place] GI TUBE EVALUATION W CONT RASTOrdered By: Elizabeth Moura on 09-22-2020 Patient Name: KATHYA HOOPER Fluoroscopy ACCESSION EXAM DATE/TIME PROCEDURE ORDERING PROVIDER [id number] 09/22/2020 04:09 EDT RF Intro Long GI Tube w/ 58ELIZABETH LU Fluoro CPT code 98974 Reason For Exam (RF Intro Long GI [...] Phone: [facility], [facility] Incoming Radiology Results From [facility] - 09/22/2020 5:11 AM EDT Patient Name: KATHYA HOOPER Fluoroscopy ACCESSION EXAM DATE/TIME PROCEDURE ORDERING PROVIDER [id number] 09/22/2020 04:09 EDT RF Intro Long GI Tube w/ ELIZABETH BARKER Bob CPT code 01107 Reason For Exam (RF Intro Long GI [...] JEFFREY Transcribed Date and Time: 09/22/2020 5:11 [facility] Work Phone: [facility] Work Phone: RF Intro Long GI Tube w/ Flu oroon 09-22-2020 RF Intro Long GI Tube w/ Fluoro Patient Name: KATHYA HOOPER Fluoroscopy ACCESSION EXAM DATE/TIME PROCEDURE ORDERING PROVIDER [id number] 09/22/2020 04:09 EDT RF Intro Long GI Tube w/ 5816 -ELIZABETH MOURA CPT code 82861 Reason For Exam (RF Intro Long GI [...] JEFFREY Transcribed Date and Time: 09/22/2020 5:11 [facility] ED Provider Noteon ED Provider Note Anamika [facility] ED EMERGENCY DEPARTMENT ENCOUNTER Pt Name: Kathya [...] otherwise acutely negative except as in the [place]. PAST MEDICAL HISTORY Past Medical History: Diagnosis [...] (AQUAPHOR) ointment Apply topically as needed. Balsam Froilan-Altmar Oil (VENELEX) OINT ointment Apply topically every [...] file Gets together: Not on file Attends oriental orthodox service: Not on file Active member of [...] Normal [facility] [place] GI TUBE EVALUATION Zulma Warner 06-26-2020 Patient Name: KATHYA HOOPER Fluoroscopy ACCESSION EXAM DATE/TIME PROCEDURE ORDERING PROVIDER [id number] 06/26/2020 20:20 EST RF Intro Long GI Tube w/ [id number] -GOMBASH, ABELARDO Fluoro CPT code 80959 Reason For Exam (RF Intro Long GI [...] B Transcribed Date and Time: 06/26/2020 9:16 [facility] Work Phone: [facility] Incoming Radiology Results From [facility] - 06/26/2020 9:16 PM EST Patient Name: KATHYA HOOPER Fluoroscopy ACCESSION EXAM DATE/TIME PROCEDURE ORDERING PROVIDER [id number] 06/26/2020 20:20 EST RF Intro Long GI Tube w/ 539257 -GOMBASH, ABELARDO Fluoro CPT code 20881 Reason For Exam (RF Intro Long GI [...] B Transcribed Date and Time: 06/26/2020 9:16 [facility] Work Phone: Feeding Tubeon 06-26-2020 Abelardo Rios [...] Fluoroscopy ACCESSION EXAM DATE/TIME PROCEDURE ORDERING PROVIDER [id number] 06/26/2020 20:20 EST RF Intro Long GI Tube w/ 475792 -ABELARDO RIOS CPT code 90545 Reason For Exam (RF Intro Long GI [...] Hospital Clinical Summary: HMSPatient IDon 05-22-2019 WOP [facility] Work Phone: Office Visit: New - 1st visi t with practice, Rm: 2on 05-22-2019 NEGATED: Highlighted rowCT scan history of the right lower extremity on 05/16/2019 at [facility] Work Phone: NEGATED: Highlighted rowTobacco smoking status NHIS current someday smoker [facility] Work Phone: NEGATED: Highlighted rowxray history of the pelvis with hip on 05/11/2019 at [facility] , of the pelvis on 05/13/2019 at [facility] Work Phone: CT LOWER EXTREMITY RIGHT WO CONTRASTOrdered By: Elizabeth Moura on 05-16-2019 Patient Name: KATHYA HOOPER ---CT--- Exam Date/Time 05/16/2019 21:10:[address] Low Ext w/o Contrast Right Ordering Physician 58ELIZABETH LU Accession Number [id number] CPT4 Codes 08804 () Reason For Exam right hip pain, [...] Phone: [facility], [facility] Incoming Radiology Results From [facility] - 05/16/2019 9:24 PM EST Patient Name: KATHYA HOOPER ---CT--- Exam Date/Time 05/16/2019 21:10:[address] Low Ext w/o Contrast Right Ordering Physician ELIZABETH BARKER Accession Number [id number] CPT4 Codes 01993 () Reason For Exam right hip pain, [...] and Time: 05/16/2019 9:24 [facility] Work Phone: Differential,Body Fluidson 0 09-27-2018 Other Cells 46 % Normal [facility] Comment on above: Result Comment: Bloo dy specimen with reactive mesothelial cells and chronic inflammation with occasional hemophagocytosis. 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, [place] #### VD25H #### [facility] [address] [place] [address] CULTURE AND STAIN - FLUIDon 09-25-2018 CULTURE [...] EMDF, PT, BMP3M, PHOS3, MG3, CK3 #### [place] [address] [place], [place] #### VD25H #### [facility] [address] [place] [address] Cell Count,Body Fluidon - Nucleated Cells 2391 {cells}/uL Normal [facility] Comment on above: Performed By: #### H EMDF, PT, BMP3M, PHOS3, MG3, CK3 #### [place] [address] [place], [place] #### VD25H #### [facility] [address] [place] [address] [place] [address] {RBC}/uL Normal [facility] Comment on above: Performed By: #### H EMDF, PT, BMP3M, PHOS3, MG3, CK3 #### [address] #### VD25H #### [facility] [address] [place] [address] Fluid Type Thoracentesis Normal [facility] Comment on above: Performed By: #### H EMDF, PT, BMP3M, PHOS3, MG3, CK3 #### [place] [address] [address] [place], [place] #### VD25H #### [facility] [address] [place] [address] Differential,Body Fluidson 0 09-25-2018 Lymphocytes/100 WBC (Bld) 28 % Normal [facility] Comment on above: Performed By: #### H EMDF, PT, BMP3M, PHOS3, MG3, CK3 #### [place] [address] [address] [place], [place] #### VD25H #### [facility] [address] [place] [address] Monocytes/100 WBC (Bld) 1 % Normal [facility] Comment on above: Performed By: #### H EMDF, PT, BMP3M, PHOS3, MG3, CK3 #### [place] [address] [address] [place], [place] #### VD25H #### [facility] [address] [place] [address] Neutrophils/100 WBC (Bld) 25 % Normal [facility] Comment on above: Performed By: #### H EMDF, PT, BMP3M, PHOS3, MG3, CK3 #### [address] #### VD25H #### [facility] [address] [place] [address] Cells Counted for Diff 100 Normal [facility] Comment on above: Performed By: #### H EMDF, PT, BMP3M, PHOS3, MG3, CK3 #### [address] #### VD25H #### [facility] [address] [place] [address] LDH, Body Fluidon 09-25-2018 LDH, Body Fluid 174 U/L Normal No Range [facility] Comment on above: Performed By: #### H EMDF, PT, BMP3M, PHOS3, MG3, CK3 #### [facility] [address] [place] [address] #### VD25H #### [facility] [address] [place] [address] Protein, Total Body Fluidon 09-25-2018 Protein,Total-Body Fld 3.4 g/dL Normal No Range [facility] Comment on above: Performed By: #### H EMDF, PT, BMP3M, PHOS3, MG3, CK3 #### [facility] [address] [place] [address] #### VD25H #### [facility] [address] [place] [address] US Thora-Aspir Pleura w/ Evelin geon 09-25-2018 US Thora-Aspir Pleura w/ Image Patient Name: KATHYA HOOPER Ultrasound Exam Date/Time 09/25/2018 13:23:41 EDT Exam US Thora-Aspir Pleura w/ Image Ordering Physician SALO DAVIS Accession Number [id number] CPT4 Codes 22331 () Reason For Exam pleural effusion Report [...] JENNIFER Transcribed Date and Time: 09/25/2018 3:07 [facility] CULTURE MYCOBACTERIAon 09-03 CULTURE MYCOBACTERIA CULTURE MYCOBACTERI A --> Status: F No acid-fast bacilli isolated after 6 weeks incubation. Normal [facility] Comment on above: Performed By: #### H EMDF, PT, BMP3M, PHOS3, MG3, CK3 #### [address] [address] #### VD25H #### [facility] [address] [place] [address] CULTURE URINEon 08-23-2018 CULTURE URINE CULTURE URINE --> Status: F No growth (<1,000 CFU/ml). [facility] Comment on above: Order Comment: Speci men Source Comment:Urine, clean catch Performed By: #### H EMDF, PT, BMP3M, PHOS3, MG3, CK3 #### [address] [address] #### VD25H #### [facility] [address] [place] [address] CR Chest Portableon 08-23-19 19 CR Chest Portable Patient Name: KATHYA HOOPER Diagnostic Radiology Exam Date/Time 08/22/2018 07:07:07 EDT Exam CR Chest Portable Ordering Physician HIRAM ONEIL Accession Number [id number] CPT4 Codes 42194 () Reason For Exam dyspnea Report Portable [...] conc 127 mg/dL High 70-100 [facility] Comment on above: Result Comment: Test performed by glucose meter. Results may be 10%-15% lower than serum/plasma values. (CLIA ID [id number]) Performed By: #### H EMDF, PT, BMP3M, PHOS3, MG3, CK3 #### [facility] [address] [place], [place] #### VD25H #### [facility] [address] [place] [address] Urinalysis,Macroon 9 Appearance Nom (U) clear Normal Clear [facility] Comment on above: Performed By: #### H EMDF, PT, BMP3M, PHOS3, MG3, CK3 #### [address] #### VD25H #### [facility] [address] [place] [address] Bilirubin,Ur Negative Normal Negative [facility] Comment on above: Performed By: #### H EMDF, PT, BMP3M, PHOS3, MG3, CK3 #### [address] #### VD25H #### [facility] [address] [place] [address] Color Nom (U) dk.yel Normal Lt. Yellow [facility] Comment on above: Performed By: #### H EMDF, PT, BMP3M, PHOS3, MG3, CK3 #### [facility] [address], [place] #### VD25H #### [facility] [address] [place] [address] Glucose Ql (U) NORM Normal Negative [facility] Comment on above: Performed By: #### H EMDF, PT, BMP3M, PHOS3, MG3, CK3 #### [facility] [address], [place] #### VD25H #### [facility] [address] [place] [address] Ketone,Urine Negative Normal Negative [facility] Comment on above: Performed By: #### H EMDF, PT, BMP3M, PHOS3, MG3, CK3 #### [place] [address] [place], [place] #### VD25H #### [facility] [address] [place] [address] Nitrite Ql (U) Negative Normal Negative [facility] Comment on above: Performed By: #### H EMDF, PT, BMP3M, PHOS3, MG3, CK3 #### [place] [address] [place], [place] #### VD25H #### [facility] [address] [place] [address] Occult Blood,Ur Negative Normal Negative [facility] Comment on above: Performed By: #### H EMDF, PT, BMP3M, PHOS3, MG3, CK3 #### [place] [address] [place], [place] #### VD25H #### [facility] [address] [place] [address] pH (U) 8.0 Normal 5.0-8.0 [facility] Comment on above: Performed By: #### H EMDF, PT, BMP3M, PHOS3, MG3, CK3 #### [place] [address] [place], [place] #### VD25H #### [facility] [address] [place] [address] Protein mass conc (U) Negative Normal Negative [facility] Comment on above: Performed By: #### H EMDF, PT, BMP3M, PHOS3, MG3, CK3 #### [facility] [address] [facility], [place] #### VD25H #### [facility] [address] [place] [address] Specific [place],Urine 1.015 Normal 1.005-1.030 [facility] Comment on above: Performed By: #### H EMDF, PT, BMP3M, PHOS3, MG3, CK3 #### [place] [address] [facility] [place] #### VD25H #### [facility] [address] [place] [address] Urobilinogen Qn (U) 1 mg/dL Normal 0-1 [facility] Comment on above: Performed By: #### H EMDF, PT, BMP3M, PHOS3, MG3, CK3 #### [address], [place] #### VD25H #### [place] [address] [place] [address] WBC #/vol (Bld) Negative Normal Negative [facility] Comment on above: Performed By: #### H EMDF, PT, BMP3M, PHOS3, MG3, CK3 #### [place] [address] [facility], [place] #### VD25H #### [facility] [address] [place] [address] Basic Metabolic Panelon 04-2 Calcium mass conc 7.8 mg/dL Low 8.4-10.4 [facility] Comment on above: Performed By: #### H EMDF, PT, BMP3M, PHOS3, MG3, CK3 #### [address], [place] #### VD25H #### [facility] [address] [place] [address] Glucose mass conc 102 mg/dL High 70-100 [facility] Comment on above: Performed By: #### H EMDF, PT, BMP3M, PHOS3, MG3, CK3 #### [facility] [address] [place] [address] #### VD25H #### [facility] [address] [place] [address] Anion gap molar conc 0 Normal [facility] Comment on above: Performed By: #### H EMDF, PT, BMP3M, PHOS3, MG3, CK3 #### [address] #### VD25H #### [facility] [address] [place] [address] CO2 molar conc 37 mmol/L High 22-30 [facility] Comment on above: Performed By: #### H EMDF, PT, BMP3M, PHOS3, MG3, CK3 #### [address] #### VD25H #### [facility] [address] [place] [address] Creatinine mass conc 0.46 mg/dL Low 0.52-1.25 [facility] Comment on above: Performed By: #### H EMDF, PT, BMP3M, PHOS3, MG3, CK3 #### [address] [place] [address] [place], [place] #### VD25H #### [facility] [address] [place] [address] GFR/1.73 sq M predicted among blacks MDRD vol rate/area (S/P/Bld) mL/min/{1.73_m2} Normal >60 [facility] Comment on above: Performed By: #### H EMDF, PT, BMP3M, PHOS3, MG3, CK3 #### [address] #### VD25H #### [facility] [address] [place] [address] GFR/1.73 sq M predicted among non-blacks MDRD vol rate/area (S/P/Bld) mL/min/{1.73_m2} Normal >60 [facility] Comment on above: Result Comment: Sour ce- MDRD equation with creatinine calibration to IDMS(NKDEP) eGFR not recommended for drug dose adjustment Performed By: #### H EMDF, PT, BMP3M, PHOS3, MG3, CK3 #### [facility] [address], [place] #### VD25H #### [facility] [address] [place] [address] Urea nitrogen mass conc 7 mg/dL Normal 7-20 [facility] Comment on above: Performed By: #### H EMDF, PT, BMP3M, PHOS3, MG3, CK3 #### [address] #### VD25H #### [facility] [address] [place] [address] Potassium molar conc 3.7 mmol/L Normal 3.5-5.1 [facility] Comment on above: Performed By: #### H EMDF, PT, BMP3M, PHOS3, MG3, CK3 #### [address] #### VD25H #### [facility] [address] [place] [address] Chloride molar conc 101 mmol/L Normal 98-107 [facility] Comment on above: Performed By: #### H EMDF, PT, BMP3M, PHOS3, MG3, CK3 #### [address] #### VD25H #### [facility] [address] [place] [address] Sodium molar conc 138 mmol/L Normal 135-145 [facility] Comment on above: Performed By: #### H EMDF, PT, BMP3M, PHOS3, MG3, CK3 #### [address] [place] [address] #### VD25H #### [facility] [address] [place] [address] CR Chest Portableon 08-22-19 19 CR Chest Portable Patient Name: KATHYA HOOPER Diagnostic Radiology Exam Date/Time 08/21/2018 09:46:47 EDT Exam CR Chest Portable Ordering Physician MALLORY STAPLES Accession Number [id number] CPT4 Codes 76455 () Reason For Exam edema Report PORTABLE [...] PHOS3, MG3, CK3 #### [facility] [address] [place] [address] #### VD25H #### [facility] [address] [place] [address] Glucose,Bedsideon 08-21-2018 Glucose mass conc 124 mg/dL High 70-100 [facility] Comment on above: Result Comment: Test performed by glucose meter. Results may be 10%-15% lower than serum/plasma values. (CLIA ID [id number]) Performed By: #### H EMDF, PT, BMP3M, PHOS3, MG3, CK3 #### [facility] [address], [place] #### VD25H #### [facility] [address] [place] [address] Glucose mass conc 135 mg/dL High 70-100 [facility] Comment on above: Result Comment: Test performed by glucose meter. Results may be 10%-15% lower than serum/plasma values. (CLIA ID [id number]) Performed By: #### H EMDF, PT, BMP3M, PHOS3, MG3, CK3 #### [facility] [address] [place] [address] #### VD25H #### [facility] [address] [place] [address] Glucose mass conc 131 mg/dL High 70-100 [facility] Comment on above: Result Comment: Test performed by glucose meter. Results may be 10%-15% lower than serum/plasma values. (CLIA ID [id number]) Performed By: #### H EMDF, PT, BMP3M, PHOS3, MG3, CK3 #### [facility] [address] [place] [address] #### VD25H #### [facility] [address] [place] [address] Glucose mass conc 112 mg/dL High 70-100 [facility] Comment on above: Result Comment: Test performed by glucose meter. Results may be 10%-15% lower than serum/plasma values. (CLIA ID [id number]) Performed By: #### H EMDF, PT, BMP3M, PHOS3, MG3, CK3 #### [facility] [address] [place] [address] #### VD25H #### [facility] [address] [place] [address] Basic Metabolic Panelon -2 Anion gap molar conc 4 Normal [facility] Comment on above: Performed By: #### H EMDF, PT, BMP3M, PHOS3, MG3, CK3 #### [place] [address] [place], [place] #### VD25H #### [facility] [address] [place] [address] Calcium mass conc 7.6 mg/dL Low 8.4-10.4 [facility] Comment on above: Performed By: #### H EMDF, PT, BMP3M, PHOS3, MG3, CK3 #### [place] [address] [place], [place] #### VD25H #### [place] [address] [place] [address] CO2 molar conc 36 mmol/L High 22-30 [facility] Comment on above: Performed By: #### H EMDF, PT, BMP3M, PHOS3, MG3, CK3 #### [place] [address] [facility], [place] #### VD25H #### [facility] [address] [place] [address] Glucose mass conc 121 mg/dL High 70-100 [facility] Comment on above: Performed By: #### H EMDF, PT, BMP3M, PHOS3, MG3, CK3 #### [place] [address] [place], [place] #### VD25H #### [facility] [address] [place] [address] Urea nitrogen mass conc 9 mg/dL Normal 7-20 [facility] Comment on above: Performed By: #### H EMDF, PT, BMP3M, PHOS3, MG3, CK3 #### [place] [address] [place], [place] #### VD25H #### [place] [address] [place] [address] Creatinine mass conc 0.51 mg/dL Low 0.52-1.25 [facility] Comment on above: Performed By: #### H EMDF, PT, BMP3M, PHOS3, MG3, CK3 #### [facility] [address], [place] #### VD25H #### [facility] [address] [place] [address] GFR/1.73 sq M predicted among blacks MDRD vol rate/area (S/P/Bld) mL/min/{1.73_m2} Normal >60 [facility] Comment on above: Performed By: #### H EMDF, PT, BMP3M, PHOS3, MG3, CK3 #### [address] #### VD25H #### [facility] [address] [place] [address] GFR/1.73 sq M predicted among non-blacks MDRD vol rate/area (S/P/Bld) mL/min/{1.73_m2} Normal >60 [facility] Comment on above: Result Comment: Sour ce- MDRD equation with creatinine calibration to IDMS(NKDEP) eGFR not recommended for drug dose adjustment Performed By: #### H EMDF, PT, BMP3M, PHOS3, MG3, CK3 #### [address] #### VD25H #### [facility] [address] [place] [address] Chloride molar conc 100 mmol/L Normal 98-107 [facility] Comment on above: Performed By: #### H EMDF, PT, BMP3M, PHOS3, MG3, CK3 #### [address] #### VD25H #### [facility] [address] [place] [address] Potassium molar conc 3.3 mmol/L Low 3.5-5.1 [facility] Comment on above: Performed By: #### H EMDF, PT, BMP3M, PHOS3, MG3, CK3 #### [facility] [address] [place] [address] #### VD25H #### [facility] [address] [place] [address] Sodium molar conc 140 mmol/L Normal 135-145 [facility] Comment on above: Performed By: #### H EMDF, PT, BMP3M, PHOS3, MG3, CK3 #### [facility] [address] [place] [address] #### VD25H #### [facility] [address] [place] [address] Glucose,Bedsideon 08-20-2018 Glucose mass conc 121 mg/dL High 70-100 [facility] Comment on above: Result Comment: Test performed by glucose meter. Results may be 10%-15% lower than serum/plasma values. (CLIA ID [id number]) Performed By: #### H EMDF, PT, BMP3M, PHOS3, MG3, CK3 #### [facility] [address], [place] #### VD25H #### [facility] [address] [place] [address] Glucose mass conc 127 mg/dL High 70-100 [facility] Comment on above: Result Comment: Test performed by glucose meter. Results may be 10%-15% lower than serum/plasma values. (CLIA ID [id number]) Performed By: #### H EMDF, PT, BMP3M, PHOS3, MG3, CK3 #### [facility] [address] [place] [address] #### VD25H #### [facility] [address] [place] [address] Hep A Abs, Totalon 9 Hep A Abs, Total Negative Normal Negative [facility] Comment on above: Result Comment: Perf ormed by [employer], [address] [place] [id number] [email or web address], Moo Lay MD - Lab. Director Performed By: #### H EMDF, PT, BMP3M, PHOS3, MG3, CK3 #### [place] [address] [facility], [place] #### VD25H #### [facility] [address] [place] [address] Basic Metabolic Panelon 04-2 Anion gap molar conc 1 Normal [facility] Comment on above: Performed By: #### H EMDF, PT, BMP3M, PHOS3, MG3, CK3 #### [place] [address] [place], [place] #### VD25H #### [facility] [address] [place] [address] Calcium mass conc 7.6 mg/dL Low 8.4-10.4 [facility] Comment on above: Performed By: #### H EMDF, PT, BMP3M, PHOS3, MG3, CK3 #### [place] [address] [facility], [place] #### VD25H #### [facility] [address] [place] [address] CO2 molar conc 33 mmol/L High 22-30 [facility] Comment on above: Performed By: #### H EMDF, PT, BMP3M, PHOS3, MG3, CK3 #### [place] [address] [facility], [place] #### VD25H #### [facility] [address] [place] [address] Glucose mass conc 139 mg/dL High 70-100 [facility] Comment on above: Performed By: #### H EMDF, PT, BMP3M, PHOS3, MG3, CK3 #### [place] [address] [facility] #### VD25H #### [facility] [address] [place] [address] Urea nitrogen mass conc 10 mg/dL Normal 7-20 [facility] Comment on above: Performed By: #### H EMDF, PT, BMP3M, PHOS3, MG3, CK3 #### [facility] [address] [place] [address] #### VD25H #### [facility] [address] [place] [address] Creatinine mass conc 0.57 mg/dL Normal 0.52-1.25 [facility] Comment on above: Performed By: #### H EMDF, PT, BMP3M, PHOS3, MG3, CK3 #### [address] [address] #### VD25H #### [facility] [address] [place] [address] GFR/1.73 sq M predicted among blacks MDRD vol rate/area (S/P/Bld) mL/min/{1.73_m2} Normal >60 [facility] Comment on above: Performed By: #### H EMDF, PT, BMP3M, PHOS3, MG3, CK3 #### [address] [address] #### VD25H #### [facility] [address] [place] [address] GFR/1.73 sq M predicted among non-blacks MDRD vol rate/area (S/P/Bld) mL/min/{1.73_m2} Normal >60 [facility] Comment on above: Result Comment: Sour ce- MDRD equation with creatinine calibration to IDMS(NKDEP) eGFR not recommended for drug dose adjustment Performed By: #### H EMDF, PT, BMP3M, PHOS3, MG3, CK3 #### [address] [address] #### VD25H #### [facility] [address] [place] [address] Potassium molar conc 3.4 mmol/L Low 3.5-5.1 [facility] Comment on above: Performed By: #### H EMDF, PT, BMP3M, PHOS3, MG3, CK3 #### [facility] [address], [place] #### VD25H #### [facility] [address] [place] [address] Chloride molar conc 104 mmol/L Normal 98-107 [facility] Comment on above: Performed By: #### H EMDF, PT, BMP3M, PHOS3, MG3, CK3 #### [facility] [address] [place], [place] #### VD25H #### [facility] [address] [place] [address] Sodium molar conc 138 mmol/L Normal 135-145 [facility] Comment on above: Performed By: #### H EMDF, PT, BMP3M, PHOS3, MG3, CK3 #### [facility] [address] [place], [place] #### VD25H #### [facility] [address] [place] [address] CULT./ST. BACTERIAon 08-19- 019 CULT./ST. BACTERIA STAIN [...] 0.12 S Vancomycin(CHRISTI) = 1 S Normal [facility] Comment on above: Order Comment: or co llected Performed By: #### H EMDF, PT, BMP3M, PHOS3, MG3, CK3 #### [facility] [address] [place] [address] #### VD25H #### [facility] [address] [place] [address] Basic Metabolic Panelon 04-2 Calcium mass conc 7.8 mg/dL Low 8.4-10.4 [facility] Comment on above: Performed By: #### H EMDF, PT, BMP3M, PHOS3, MG3, CK3 #### [facility] [address] [place] [address] #### VD25H #### [facility] [address] [place] [address] Glucose mass conc 104 mg/dL High 70-100 [facility] Comment on above: Performed By: #### H EMDF, PT, BMP3M, PHOS3, MG3, CK3 #### [facility] [address] [place] [address] #### VD25H #### [facility] [address] [place] [address] Urea nitrogen mass conc 12 mg/dL Normal 7-20 [facility] Comment on above: Performed By: #### H EMDF, PT, BMP3M, PHOS3, MG3, CK3 #### [place] [address] [place], [place] #### VD25H #### [facility] [address] [place] [address] Anion gap molar conc 5 Normal [facility] Comment on above: Performed By: #### H EMDF, PT, BMP3M, PHOS3, MG3, CK3 #### [place] [address] [place], [place] #### VD25H #### [place] [address] [place] [address] CO2 molar conc 26 mmol/L Normal 22-30 [facility] Comment on above: Performed By: #### H EMDF, PT, BMP3M, PHOS3, MG3, CK3 #### [address] [place], [place] #### VD25H #### [facility] [address] [place] [address] Creatinine mass conc 0.61 mg/dL Normal 0.52-1.25 [facility] Comment on above: Performed By: #### H EMDF, PT, BMP3M, PHOS3, MG3, CK3 #### [place] [address] [facility] #### VD25H #### [place] [address] [place] [address] GFR/1.73 sq M predicted among blacks MDRD vol rate/area (S/P/Bld) mL/min/{1.73_m2} Normal >60 [facility] Comment on above: Performed By: #### H EMDF, PT, BMP3M, PHOS3, MG3, CK3 #### [address] [address] #### VD25H #### [facility] [address] [place] [address] GFR/1.73 sq M predicted among non-blacks MDRD vol rate/area (S/P/Bld) mL/min/{1.73_m2} Normal >60 [facility] Comment on above: Result Comment: Sour ce- MDRD equation with creatinine calibration to IDMS(NKDEP) eGFR not recommended for drug dose adjustment Performed By: #### H EMDF, PT, BMP3M, PHOS3, MG3, CK3 #### [place] [address] [place] #### VD25H #### [facility] [address] [place] [address] Chloride molar conc 107 mmol/L Normal 98-107 [facility] Comment on above: Performed By: #### H EMDF, PT, BMP3M, PHOS3, MG3, CK3 #### [place] [address] [place], [place] #### VD25H #### [facility] [address] [place] [address] Potassium molar conc 3.4 mmol/L Low 3.5-5.1 [facility] Comment on above: Performed By: #### H EMDF, PT, BMP3M, PHOS3, MG3, CK3 #### [address] #### VD25H #### [facility] [address] [place] [address] Sodium molar conc 138 mmol/L Normal 135-145 [facility] Comment on above: Performed By: #### H EMDF, PT, BMP3M, PHOS3, MG3, CK3 #### [address] #### VD25H #### [facility] [address] [place] [address] Glucose,Bedsideon 08-18-2018 Glucose mass conc 113 mg/dL High 70-100 [facility] Comment on above: Result Comment: Test performed by glucose meter. Results may be 10%-15% lower than serum/plasma values. (CLIA ID [id number]) Performed By: #### H EMDF, PT, BMP3M, PHOS3, MG3, CK3 #### [address] #### VD25H #### [facility] [address] [place] [address] Hemogram w/ Autodiffon 08-18 Erythrocyte distribution width Ratio (RBC) 14.4 % Normal 11.5-14.5 [facility] Comment on above: Performed By: #### H EMDF, PT, BMP3M, PHOS3, MG3, CK3 #### [address] #### VD25H #### [facility] [address] [place] [address] Hematocrit Volume Fraction (Bld) 29.3 % Low 40.0-52.0 [facility] Comment on above: Performed By: #### H EMDF, PT, BMP3M, PHOS3, MG3, CK3 #### [address] #### VD25H #### [facility] [address] [place] [address] Hemoglobin mass conc (Bld) 9.8 g/dL Low 13.0-18.0 [facility] Comment on above: Performed By: #### H EMDF, PT, BMP3M, PHOS3, MG3, CK3 #### [address] #### VD25H #### [facility] [address] [place] [address] MCH Entitic mass (RBC) 28.0 pg Normal 26.0-34.0 [facility] Comment on above: Performed By: #### H EMDF, PT, BMP3M, PHOS3, MG3, CK3 #### [address] #### VD25H #### [facility] [address] [place] [address] MCHC mass conc (RBC) 33.4 % Normal 32.0-36.0 [facility] Comment on above: Performed By: #### H EMDF, PT, BMP3M, PHOS3, MG3, CK3 #### [address] #### VD25H #### [facility] [address] [place] [address] MCV Entitic volume (RBC) 84.1 fL Normal 80.0-98.0 [facility] Comment on above: Performed By: #### H EMDF, PT, BMP3M, PHOS3, MG3, CK3 #### [address] #### VD25H #### [place] [address] [place] [address] Platelet mean volume Entitic volume (Bld) 7.9 fL Normal 7.4-10.4 [facility] Comment on above: Performed By: #### H EMDF, PT, BMP3M, PHOS3, MG3, CK3 #### [address] #### VD25H #### [place] [address] [place] [address] Platelets #/vol (Bld) 301 10*3/uL Normal 140-440 [facility] Comment on above: Performed By: #### H EMDF, PT, BMP3M, PHOS3, MG3, CK3 #### [address] #### VD25H #### [facility] [address] [place] [address] RBC #/vol (Bld) 3.49 10*6/uL Low 4.40-5.90 [facility] Comment on above: Performed By: #### H EMDF, PT, BMP3M, PHOS3, MG3, CK3 #### [address], [place] #### VD25H #### [facility] [address] [place] [address] WBC #/vol (Bld) 8.3 10*3/uL Normal 3.6-10.7 [facility] Comment on above: Performed By: #### H EMDF, PT, BMP3M, PHOS3, MG3, CK3 #### [place] [address] [place], [place] #### VD25H #### [facility] [address] [place] [address] Magnesiumon 08-18-2018 Magnesium mass conc 2.0 mg/dL Normal 1.6-2.3 [facility] Comment on above: Performed By: #### H EMDF, PT, BMP3M, PHOS3, MG3, CK3 #### [address] #### VD25H #### [facility] [address] [place] [address] Manual Diffon 08-18-2018 Abs Neutrophile Cnt 5.1 10*3/uL Normal 2.2-8.2 [facility] Comment on above: Performed By: #### H EMDF, PT, BMP3M, PHOS3, MG3, CK3 #### [address] #### VD25H #### [facility] [address] [place] [address] Bands 3 % Normal 0-3 [facility] Comment on above: Performed By: #### H EMDF, PT, BMP3M, PHOS3, MG3, CK3 #### [address] #### VD25H #### [facility] [address] [place] [address] Eosinophils #/vol (Bld) 0.2 10*3/uL Normal 0.0-0.5 [facility] Comment on above: Performed By: #### H EMDF, PT, BMP3M, PHOS3, MG3, CK3 #### [facility] [address] [place], [place] #### VD25H #### [facility] [address] [place] [address] Eosinophils/100 WBC (Bld) 2 % Normal 1-6 [facility] Comment on above: Performed By: #### H EMDF, PT, BMP3M, PHOS3, MG3, CK3 #### [place] [address] [place], [place] #### VD25H #### [facility] [address] [place] [address] Lymphocytes #/vol (Bld) 2.1 10*3/uL Normal 1.1-4.5 [facility] Comment on above: Performed By: #### H EMDF, PT, BMP3M, PHOS3, MG3, CK3 #### [place] [address] [place], [place] #### VD25H #### [facility] [address] [place] [address] Lymphocytes/100 WBC (Bld) 25 % Normal 20-40 [facility] Comment on above: Performed By: #### H EMDF, PT, BMP3M, PHOS3, MG3, CK3 #### [place] [address] [place] #### VD25H #### [facility] [address] [place] [address] Metamyelocytes 1 % Abnormal <[address] [facility] Comment on above: Performed By: #### H EMDF, PT, BMP3M, PHOS3, MG3, CK3 #### [place] [address] [place] #### VD25H #### [facility] [address] [place] [address] Monocytes #/vol (Bld) 0.6 10*3/uL Normal 0.2-1.1 [facility] Comment on above: Performed By: #### H EMDF, PT, BMP3M, PHOS3, MG3, CK3 #### [facility] [address] [facility] #### VD25H #### [facility] [address] [place] [address] Monocytes/100 WBC (Bld) 7 % Normal 2-10 [facility] Comment on above: Performed By: #### H EMDF, PT, BMP3M, PHOS3, MG3, CK3 #### [facility] [address] [facility] #### VD25H #### [facility] [address] [place] [address] Myelocytes 1 % Abnormal <1 [facility] Comment on above: Performed By: #### H EMDF, PT, BMP3M, PHOS3, MG3, CK3 #### [place] [address] [facility] #### VD25H #### [facility] [address] [place] [address] Protein mass conc 2 % Abnormal <1 [facility] System Comment on above: Performed By: #### H EMDF, PT, BMP3M, PHOS3, MG3, CK3 #### [facility] [address] [facility], [place] #### VD25H #### [facility] [address] [place] [address] RBC morphology finding Nom (Bld) See Prev Normal [facility] Comment on above: Performed By: #### H EMDF, PT, BMP3M, PHOS3, MG3, CK3 #### [facility] [address] [facility], [place] #### VD25H #### [facility] [address] [place] [address] Seg Neutrophils 59 % Normal 40-80 [facility] Comment on above: Performed By: #### H EMDF, PT, BMP3M, PHOS3, MG3, CK3 #### [facility] [address] [facility], [place] #### VD25H #### [place] [address] [place] [address] Abs Baso Cnt 0.0 10*3/uL Normal 0.0-0.2 [facility] Comment on above: Performed By: #### H EMDF, PT, BMP3M, PHOS3, MG3, CK3 #### [address] #### VD25H #### [place] [address] [place] [address] Basophils/100 WBC (Bld) 0 % Normal 0-2 [facility] Comment on above: Performed By: #### H EMDF, PT, BMP3M, PHOS3, MG3, CK3 #### [address] #### VD25H #### [place] [address] [place] [address] Cells counted 100 Normal [facility] Comment on above: Performed By: #### H EMDF, PT, BMP3M, PHOS3, MG3, CK3 #### [address] #### VD25H #### [place] [address] [place] [address] Phosphoruson 08-18-2018 Phosphate mass conc 4.6 mg/dL High 2.5-4.5 [facility] Comment on above: Performed By: #### H EMDF, PT, BMP3M, PHOS3, MG3, CK3 #### [address] #### VD25H #### [place] [address] [place] [address] Basic Metabolic Panelon 07-30 Calcium mass conc 7.7 mg/dL Low 8.4-10.4 [facility] Comment on above: Performed By: #### H EMDF, PT, BMP3M, PHOS3, MG3, CK3 #### [address] #### VD25H #### [facility] [address] [place] [address] Anion gap molar conc 7 Normal [facility] Comment on above: Performed By: #### H EMDF, PT, BMP3M, PHOS3, MG3, CK3 #### [address] #### VD25H #### [facility] [address] [place] [address] CO2 molar conc 25 mmol/L Normal 22-30 [facility] Comment on above: Performed By: #### H EMDF, PT, BMP3M, PHOS3, MG3, CK3 #### [address] #### VD25H #### [place] [address] [place] [address] Creatinine mass conc 0.59 mg/dL Normal 0.52-1.25 [facility] Comment on above: Performed By: #### H EMDF, PT, BMP3M, PHOS3, MG3, CK3 #### [address] #### VD25H #### [facility] [address] [place] [address] GFR/1.73 sq M predicted among blacks MDRD vol rate/area (S/P/Bld) mL/min/{1.73_m2} Normal >60 [facility] Comment on above: Performed By: #### H EMDF, PT, BMP3M, PHOS3, MG3, CK3 #### [address] #### VD25H #### [facility] [address] [place] [address] GFR/1.73 sq M predicted among non-blacks MDRD vol rate/area (S/P/Bld) mL/min/{1.73_m2} Normal >60 [facility] Comment on above: Result Comment: Sour ce- MDRD equation with creatinine calibration to IDMS(NKDEP) eGFR not recommended for drug dose adjustment Performed By: #### H EMDF, PT, BMP3M, PHOS3, MG3, CK3 #### [facility] [address] [facility], [place] #### VD25H #### [facility] [address] [place] [address] Glucose mass conc 116 mg/dL High 70-100 [facility] Comment on above: Performed By: #### H EMDF, PT, BMP3M, PHOS3, MG3, CK3 #### [place] [address] [facility], [place] #### VD25H #### [facility] [address] [place] [address] Urea nitrogen mass conc 12 mg/dL Normal 7-20 [facility] Comment on above: Performed By: #### H EMDF, PT, BMP3M, PHOS3, MG3, CK3 #### [place] [address] [facility], [place] #### VD25H #### [facility] [address] [place] [address] Potassium molar conc 3.2 mmol/L Low 3.5-5.1 [facility] Comment on above: Performed By: #### H EMDF, PT, BMP3M, PHOS3, MG3, CK3 #### [place] [address] [facility], [place] #### VD25H #### [facility] [address] [place] [address] Sodium molar conc 138 mmol/L Normal 135-145 [facility] Comment on above: Performed By: #### H EMDF, PT, BMP3M, PHOS3, MG3, CK3 #### [place] [address] [facility], [place] #### VD25H #### [facility] [address] [place] [address] Chloride molar conc 106 mmol/L Normal 98-107 [facility] Comment on above: Performed By: #### H EMDF, PT, BMP3M, PHOS3, MG3, CK3 #### [facility] [address] [place] [address] #### VD25H #### [facility] [address] [place] [address] CR Chest Portableon 08-18-19 CR Chest Portable Patient Name: KATHYA HOOPER Diagnostic Radiology Exam Date/Time 08/17/2018 17:54:46 EDT Exam CR Chest Portable Ordering Physician SALO DAVIS Accession Number [id number] CPT4 Codes 01004 () Reason For Exam line placement Report [...] Physician ETIENNE VELÁSQUEZ TIMOTHY P Accession Number [id number] CPT4 Codes 74883 () Reason For Exam follow left pleural [...] PHOS3, MG3, CK3 #### [facility] [address] [place] [address] #### VD25H #### [facility] [address] [place] [address] Folateon 08-17-2018 Folate 15.1 ng/mL Normal 2.8-20.0 [facility] Comment on above: Performed By: #### H EMDF, PT, BMP3M, PHOS3, MG3, CK3 #### [facility] [address] [place] [address] #### VD25H #### [facility] [address] [place] [address] Glucose,Bedsideon 08-17-2018 Glucose mass conc 133 mg/dL High 70-100 [facility] Comment on above: Result Comment: Test performed by glucose meter. Results may be 10%-15% lower than serum/plasma values. (CLIA ID [id number]) Performed By: #### H EMDF, PT, BMP3M, PHOS3, MG3, CK3 #### [facility] [address] [place] [address] #### VD25H #### [facility] [address] [place] [address] Hemoglobin A1Con 08-17-2018 Hemoglobin A1c/Hemoglobin.total mass fraction (Bld) 117 mg/dL Normal [facility] Comment on above: Performed By: #### H EMDF, PT, BMP3M, PHOS3, MG3, CK3 #### [address] #### VD25H #### [facility] [address] [place] [address] Hemoglobin A1c/Hemoglobin.total mass fraction (Bld) 5.7 % Normal 4.0-5.7 [facility] Comment on above: Result Comment: --Hg bA1C levels may not be accurate in patients who have renal disease, received recent blood transfusions, are anemic, or who have dyshemoglobinemia. Performed By: #### H EMDF, PT, BMP3M, PHOS3, MG3, CK3 #### [address] #### VD25H #### [facility] [address] [place] [address] Hemogram w/ Autodiffon 08-17 Erythrocyte distribution width Ratio (RBC) 14.3 % Normal 11.5-14.5 [facility] Comment on above: Performed By: #### H EMDF, PT, BMP3M, PHOS3, MG3, CK3 #### [address] #### VD25H #### [facility] [address] [place] [address] Hematocrit Volume Fraction (Bld) 29.1 % Low 40.0-52.0 [facility] Comment on above: Performed By: #### H EMDF, PT, BMP3M, PHOS3, MG3, CK3 #### [address] #### VD25H #### [facility] [address] [place] [address] Hemoglobin mass conc (Bld) 9.8 g/dL Low 13.0-18.0 [facility] Comment on above: Performed By: #### H EMDF, PT, BMP3M, PHOS3, MG3, CK3 #### [place] [address] [place], [place] #### VD25H #### [facility] [address] [place] [address] MCH Entitic mass (RBC) 28.4 pg Normal 26.0-34.0 [facility] Comment on above: Performed By: #### H EMDF, PT, BMP3M, PHOS3, MG3, CK3 #### [place] [address] [place], [place] #### VD25H #### [facility] [address] [place] [address] MCHC mass conc (RBC) 33.5 % Normal 32.0-36.0 [facility] Comment on above: Performed By: #### H EMDF, PT, BMP3M, PHOS3, MG3, CK3 #### [address] #### VD25H #### [facility] [address] [place] [address] MCV Entitic volume (RBC) 84.7 fL Normal 80.0-98.0 [facility] Comment on above: Performed By: #### H EMDF, PT, BMP3M, PHOS3, MG3, CK3 #### [address] #### VD25H #### [facility] [address] [place] [address] Platelet mean volume Entitic volume (Bld) 8.1 fL Normal 7.4-10.4 [facility] Comment on above: Performed By: #### H EMDF, PT, BMP3M, PHOS3, MG3, CK3 #### [address] #### VD25H #### [facility] [address] [place] [address] Platelets #/vol (Bld) 281 10*3/uL Normal 140-440 [facility] Comment on above: Performed By: #### H EMDF, PT, BMP3M, PHOS3, MG3, CK3 #### [facility] [address] [place], [place] #### VD25H #### [facility] [address] [place] [address] RBC #/vol (Bld) 3.44 10*6/uL Low 4.40-5.90 [facility] Comment on above: Performed By: #### H EMDF, PT, BMP3M, PHOS3, MG3, CK3 #### [address] #### VD25H #### [facility] [address] [place] [address] WBC #/vol (Bld) 8.3 10*3/uL Normal 3.6-10.7 [facility] Comment on above: Performed By: #### H EMDF, PT, BMP3M, PHOS3, MG3, CK3 #### [facility] [address], [place] #### VD25H #### [facility] [address] [place] [address] Hep B Surface Abon 9 Hep B Surface Ab < 8.0 Normal [facility] Comment on above: Result Comment: Inte rpretation: <8.0 Non-Reactive 8.0-11.9 Equivocal >= 12.0 Ab Detected Performed By: #### H EMDF, PT, BMP3M, PHOS3, MG3, CK3 #### [facility] [address], [place] #### VD25H #### [facility] [address] [place] [address] Hep B Surface Agon 9 Hep B Surface Ag NOT DETECTED Normal Not-Detected [facility] Comment on above: Performed By: #### H EMDF, PT, BMP3M, PHOS3, MG3, CK3 #### [address] #### VD25H #### [facility] [address] [place] [address] Hep C Antibodyon 08-17-2018 Hep C Antibody NOT DETECTED Normal Not-Detected [facility] Comment on above: Result Comment: Bharti ents with DETECTED Hepatitis C Ab results should have a new specimen submitted for supplemental testing with a Hepatitis C Quantitative RNA assay (viral load), if clinically indicated. Performed By: #### H EMDF, PT, BMP3M, PHOS3, MG3, CK3 #### [facility] [address] [facility] [place] #### VD25H #### [facility] [address] [place] [address] Hepatic Functionon 9 ALP enzyme act/vol 116 U/L Normal 38-126 [facility] Comment on above: Performed By: #### H EMDF, PT, BMP3M, PHOS3, MG3, CK3 #### [facility] [address] [place], [place] #### VD25H #### [facility] [address] [place] [address] ALT enzyme act/vol 370 U/L High 13-69 [facility] Comment on above: Performed By: #### H EMDF, PT, BMP3M, PHOS3, MG3, CK3 #### [facility] [address] [place], [place] #### VD25H #### [facility] [address] [place] [address] AST enzyme act/vol 150 U/L High 15-46 [facility] Comment on above: Performed By: #### H EMDF, PT, BMP3M, PHOS3, MG3, CK3 #### [facility] [address] [place], [place] #### VD25H #### [facility] [address] [place] [address] Bilirubin mass conc 0.7 mg/dL Normal 0.2-1.3 [facility] Comment on above: Performed By: #### H EMDF, PT, BMP3M, PHOS3, MG3, CK3 #### [facility] [address] [place], [place] #### VD25H #### [facility] [address] [place] [address] Bilirubin.direct mass conc 0.0 mg/dL Normal 0.0-0.3 [facility] Comment on above: Performed By: #### H EMDF, PT, BMP3M, PHOS3, MG3, CK3 #### [place] [address] [place], [place] #### VD25H #### [facility] [address] [place] [address] Protein mass conc 5.4 g/dL Low 6.3-8.2 [facility] Comment on above: Performed By: #### H EMDF, PT, BMP3M, PHOS3, MG3, CK3 #### [address] #### VD25H #### [facility] [address] [place] [address] Albumin mass conc 2.5 g/dL Low 3.5-5.0 [facility] Comment on above: Performed By: #### H EMDF, PT, BMP3M, PHOS3, MG3, CK3 #### [address] #### VD25H #### [facility] [address] [place] [address] Iron AND TIBCon 08-17-2018 Saturation 14 % Low 15-50 [facility] Comment on above: Performed By: #### H EMDF, PT, BMP3M, PHOS3, MG3, CK3 #### [place] [address] [place], [place] #### VD25H #### [facility] [address] [place] [address] Total Iron Binding Cap. 166 ug/dL Low 261-497 [facility] Comment on above: Performed By: #### H EMDF, PT, BMP3M, PHOS3, MG3, CK3 #### [address] #### VD25H #### [facility] [address] [place] [address] Iron, Total 23 ug/dL Low 49-181 [facility] Comment on above: Performed By: #### H EMDF, PT, BMP3M, PHOS3, MG3, CK3 #### [address] #### VD25H #### [place] [address] [place] [address] Magnesiumon 08-17-2018 Magnesium mass conc 2.0 mg/dL Normal 1.6-2.3 [facility] Comment on above: Performed By: #### H EMDF, PT, BMP3M, PHOS3, MG3, CK3 #### [address] #### VD25H #### [facility] [address] [place] [address] Manual Diffon 08-17-2018 Abs Baso Cnt 0.1 10*3/uL Normal 0.0-0.2 [facility] Comment on above: Performed By: #### H EMDF, PT, BMP3M, PHOS3, MG3, CK3 #### [address] #### VD25H #### [place] [address] [place] [address] Abs Neutrophile Cnt 5.6 10*3/uL Normal 2.2-8.2 [facility] Comment on above: Performed By: #### H EMDF, PT, BMP3M, PHOS3, MG3, CK3 #### [address] #### VD25H #### [place] [address] [place] [address] Anisocytosis Ql (Bld) Slight Normal [facility] Comment on above: Performed By: #### H EMDF, PT, BMP3M, PHOS3, MG3, CK3 #### [place] [address] [place] #### VD25H #### [facility] [address] [place] [address] Bands 9 % High 0-3 [facility] Comment on above: Performed By: #### H EMDF, PT, BMP3M, PHOS3, MG3, CK3 #### [place] [address] [place] #### VD25H #### [facility] [address] [place] [address] Basophils/100 WBC (Bld) 1 % Normal 0-2 [facility] Comment on above: Performed By: #### H EMDF, PT, BMP3M, PHOS3, MG3, CK3 #### [place] [address] [place], [place] #### VD25H #### [facility] [address] [place] [address] Eosinophils #/vol (Bld) 0.2 10*3/uL Normal 0.0-0.5 [facility] Comment on above: Performed By: #### H EMDF, PT, BMP3M, PHOS3, MG3, CK3 #### [place] [address] [place], [place] #### VD25H #### [facility] [address] [place] [address] Eosinophils/100 WBC (Bld) 3 % Normal 1-6 [facility] Comment on above: Performed By: #### H EMDF, PT, BMP3M, PHOS3, MG3, CK3 #### [place] [address] [place], [place] #### VD25H #### [facility] [address] [place] [address] Lymphocytes #/vol (Bld) 1.5 10*3/uL Normal 1.1-4.5 [facility] Comment on above: Performed By: #### H EMDF, PT, BMP3M, PHOS3, MG3, CK3 #### [place] [address] [place], [place] #### VD25H #### [facility] [address] [place] [address] Lymphocytes/100 WBC (Bld) 18 % Low 20-40 [facility] Comment on above: Performed By: #### H EMDF, PT, BMP3M, PHOS3, MG3, CK3 #### [place] [address] [place], [place] #### VD25H #### [facility] [address] [place] [address] Monocytes #/vol (Bld) 0.4 10*3/uL Normal 0.2-1.1 [facility] Comment on above: Performed By: #### H EMDF, PT, BMP3M, PHOS3, MG3, CK3 #### [place] [address] [place], [place] #### VD25H #### [place] [address] [place] [address] Monocytes/100 WBC (Bld) 5 % Normal 2-10 [facility] Comment on above: Performed By: #### H EMDF, PT, BMP3M, PHOS3, MG3, CK3 #### [place] [address] [place], [place] #### VD25H #### [place] [address] [place] [address] Myelocytes 5 % Abnormal <1 [facility] Comment on above: Performed By: #### H EMDF, PT, BMP3M, PHOS3, MG3, CK3 #### [place] [address] [place], [place] #### VD25H #### [facility] [address] [place] [address] Polychromasia Slight Normal [facility] Comment on above: Performed By: #### H EMDF, PT, BMP3M, PHOS3, MG3, CK3 #### [place] [address] [place], [place] #### VD25H #### [facility] [address] [place] [address] RBC morphology finding Nom (Bld) ABNORMAL Normal [facility] Comment on above: Performed By: #### H EMDF, PT, BMP3M, PHOS3, MG3, CK3 #### [facility] [address] [facility] [place] #### VD25H #### [facility] [address] [place] [address] Seg Neutrophils 59 % Normal 40-80 [facility] Comment on above: Performed By: #### H EMDF, PT, BMP3M, PHOS3, MG3, CK3 #### [place] [address] [facility] [place] #### VD25H #### [facility] [address] [place] [address] Toxic Granulation Slight Normal [facility] Comment on above: Performed By: #### H EMDF, PT, BMP3M, PHOS3, MG3, CK3 #### [place] [address] [facility] [place] #### VD25H #### [facility] [address] [place] [address] Cells counted 100 Normal [facility] Comment on above: Performed By: #### H EMDF, PT, BMP3M, PHOS3, MG3, CK3 #### [facility] [address] [facility] #### VD25H #### [facility] [address] [place] [address] Phosphoruson 08-17-2018 Phosphate mass conc 3.9 mg/dL Normal 2.5-4.5 [facility] Comment on above: Performed By: #### H EMDF, PT, BMP3M, PHOS3, MG3, CK3 #### [facility] [address] [facility] #### VD25H #### [facility] [address] [place] [address] Triglycerideon 08-17-2018 Triglyceride mass conc 104 mg/dL Normal <150 [facility] Comment on above: Performed By: #### H EMDF, PT, BMP3M, PHOS3, MG3, CK3 #### [facility] [address] [place] #### VD25H #### [facility] [address] [place] [address] Vitamin B12on 08-17-2018 Cobalamin (Vitamin B12) mass conc 615 pg/mL Normal 239-931 [facility] Comment on above: Performed By: #### H EMDF, PT, BMP3M, PHOS3, MG3, CK3 #### [facility] [address] [place], [place] #### VD25H #### [facility] [address] [place] [address] Albumin, Serumon 08-16-2018 Albumin mass conc 2.6 g/dL Low 3.5-5.0 [facility] Comment on above: Performed By: #### H EMDF, PT, BMP3M, PHOS3, MG3, CK3 #### [facility] [address], [place] #### VD25H #### [facility] [address] [place] [address] CR Abdomen APon 08-16-2018 CR Abdomen AP Patient Name: KATHYA HOOPER Diagnostic Radiology Exam Date/Time 08/16/2018 10:17:24 EDT Exam CR Abdomen AP Ordering Physician [id number] ANNA Accession Number [id number] CPT4 Codes 44344 () Reason For Exam dobhoff placement Report [...] EDT Exam CR Chest Portable Ordering Physician [id number] ANNA Accession Number [id number] CPT4 Codes 49866 () Reason For Exam dyspnea Report PORTABLE [...] ALFRED Transcribed Date and Time: 08/16/2018 12:31 [facility] Comp Panel with Mg Reflexon 08-16-2018 Calcium mass conc 7.8 mg/dL Low 8.4-10.4 [facility] Comment on above: Performed By: #### H EMDF, PT, BMP3M, PHOS3, MG3, CK3 #### [facility] [address] [facility] #### VD25H #### [facility] [address] [place] [address] Glucose mass conc 114 mg/dL High 70-100 [facility] Comment on above: Performed By: #### H EMDF, PT, BMP3M, PHOS3, MG3, CK3 #### [facility] [address] [facility] #### VD25H #### [facility] [address] [place] [address] ALP enzyme act/vol 114 U/L Normal 38-126 [facility] Comment on above: Performed By: #### H EMDF, PT, BMP3M, PHOS3, MG3, CK3 #### [place] [address] [facility] #### VD25H #### [facility] [address] [place] [address] ALT enzyme act/vol 539 U/L High 13-69 [facility] Comment on above: Performed By: #### H EMDF, PT, BMP3M, PHOS3, MG3, CK3 #### [place] [address] [facility] #### VD25H #### [facility] [address] [place] [address] Anion gap molar conc 4 Normal [facility] Comment on above: Performed By: #### H EMDF, PT, BMP3M, PHOS3, MG3, CK3 #### [place] [address] [facility] #### VD25H #### [facility] [address] [place] [address] AST enzyme act/vol 460 U/L High 15-46 [facility] Comment on above: Performed By: #### H EMDF, PT, BMP3M, PHOS3, MG3, CK3 #### [place] [address] [facility] #### VD25H #### [facility] [address] [place] [address] Bilirubin mass conc 0.7 mg/dL Normal 0.2-1.3 [facility] Comment on above: Performed By: #### H EMDF, PT, BMP3M, PHOS3, MG3, CK3 #### [address] #### VD25H #### [place] [address] [place] [address] CO2 molar conc 25 mmol/L Normal 22-30 [facility] Comment on above: Performed By: #### H EMDF, PT, BMP3M, PHOS3, MG3, CK3 #### [address] #### VD25H #### [address] [place] [address] Creatinine mass conc 0.71 mg/dL Normal 0.52-1.25 [facility] Comment on above: Performed By: #### H EMDF, PT, BMP3M, PHOS3, MG3, CK3 #### [address] #### VD25H #### [address] [place] [address] GFR/1.73 sq M predicted among blacks MDRD vol rate/area (S/P/Bld) mL/min/{1.73_m2} Normal >60 [facility] Comment on above: Performed By: #### H EMDF, PT, BMP3M, PHOS3, MG3, CK3 #### [address] #### VD25H #### [address] [place] [address] GFR/1.73 sq M predicted among non-blacks MDRD vol rate/area (S/P/Bld) mL/min/{1.73_m2} Normal >60 [facility] Comment on above: Result Comment: Sour ce- MDRD equation with creatinine calibration to IDMS(NKDEP) eGFR not recommended for drug dose adjustment Performed By: #### H EMDF, PT, BMP3M, PHOS3, MG3, CK3 #### [facility] [address] [facility] #### VD25H #### [facility] [address] [place] [address] Protein mass conc 5.1 g/dL Low 6.3-8.2 [facility] Comment on above: Performed By: #### H EMDF, PT, BMP3M, PHOS3, MG3, CK3 #### [place] [address] [facility] [place] #### VD25H #### [facility] [address] [place] [address] Urea nitrogen mass conc 22 mg/dL High 7-20 [facility] Comment on above: Performed By: #### H EMDF, PT, BMP3M, PHOS3, MG3, CK3 #### [facility] [address] [facility] #### VD25H #### [facility] [address] [place] [address] Chloride molar conc 102 mmol/L Normal 98-107 [facility] Comment on above: Performed By: #### H EMDF, PT, BMP3M, PHOS3, MG3, CK3 #### [facility] [address] [facility] #### VD25H #### [facility] [address] [place] [address] Potassium molar conc 3.1 mmol/L Low 3.5-5.1 [facility] Comment on above: Performed By: #### H EMDF, PT, BMP3M, PHOS3, MG3, CK3 #### [facility] [address] [facility] #### VD25H #### [facility] [address] [place] [address] Sodium molar conc 131 mmol/L Low 135-145 [facility] Comment on above: Performed By: #### H EMDF, PT, BMP3M, PHOS3, MG3, CK3 #### [facility] [address] [place] [address] #### VD25H #### [facility] [address] [place] [address] Albumin mass conc 2.4 g/dL Low 3.5-5.0 [facility] Comment on above: Performed By: #### H EMDF, PT, BMP3M, PHOS3, MG3, CK3 #### [facility] [address] [place] [address] #### [id number] #### [facility] [address] [place] [address] Glucose,Bedsideon 08-16-2018 Glucose mass conc 100 mg/dL Normal 70-100 [facility] Comment on above: Result Comment: Test performed by glucose meter. Results may be 10%-15% lower than serum/plasma values. (CLIA ID [id number]) Performed By: #### H EMDF, PT, BMP3M, PHOS3, MG3, CK3 #### [facility] [address], [place] #### VD25H #### [facility] [address] [place] [address] Glucose mass conc 98 mg/dL Normal 70-100 [facility] Comment on above: Result Comment: Test performed by glucose meter. Results may be 10%-15% lower than serum/plasma values. (CLIA ID [id number]) Performed By: #### H EMDF, PT, BMP3M, PHOS3, MG3, CK3 #### [facility] [address] [place] [address] #### [id number] #### [facility] [address] [place] [address] Glucose mass conc 110 mg/dL High 70-100 [facility] Comment on above: Result Comment: Test performed by glucose meter. Results may be 10%-15% lower than serum/plasma values. (CLIA ID [id number]) Performed By: #### H EMDF, PT, BMP3M, PHOS3, MG3, CK3 #### [address] #### VD25H #### [facility] [address] [place] [address] Glucose mass conc 113 mg/dL High 70-100 [facility] Comment on above: Result Comment: Test performed by glucose meter. Results may be 10%-15% lower than serum/plasma values. (CLIA ID [id number]) Performed By: #### H EMDF, PT, BMP3M, PHOS3, MG3, CK3 #### [address] #### VD25H #### [place] [address] [place] [address] Glucose mass conc 126 mg/dL High 70-100 [facility] Comment on above: Result Comment: Test performed by glucose meter. Results may be 10%-15% lower than serum/plasma values. (CLIA ID [id number]) Performed By: #### H EMDF, PT, BMP3M, PHOS3, MG3, CK3 #### [address] #### VD25H #### [facility] [address] [place] [address] Hemogram w/ Autodiffon 08-16 Abs Baso Cnt 0.0 10*3/uL Normal 0.0-0.2 [facility] Comment on above: Performed By: #### H EMDF, PT, BMP3M, PHOS3, MG3, CK3 #### [address] #### VD25H #### [facility] [address] [place] [address] Abs Neutrophile Cnt 7.7 10*3/uL High 1.8-7.0 [facility] Comment on above: Performed By: #### H EMDF, PT, BMP3M, PHOS3, MG3, CK3 #### [facility] [address] [place], [place] #### VD25H #### [facility] [address] [place] [address] Basophils/100 WBC (Bld) 0.5 % Normal 0.0-2.0 [facility] Comment on above: Performed By: #### H EMDF, PT, BMP3M, PHOS3, MG3, CK3 #### [address] [place], [place] #### VD25H #### [facility] [address] [place] [address] Eosinophils #/vol (Bld) 0.1 10*3/uL Normal 0.0-0.5 [facility] Comment on above: Performed By: #### H EMDF, PT, BMP3M, PHOS3, MG3, CK3 #### [address] #### VD25H #### [facility] [address] [place] [address] Eosinophils/100 WBC (Bld) 1.5 % Normal 1.0-6.0 [facility] Comment on above: Performed By: #### H EMDF, PT, BMP3M, PHOS3, MG3, CK3 #### [address] #### VD25H #### [facility] [address] [place] [address] Erythrocyte distribution width Ratio (RBC) 14.4 % Normal 11.5-14.5 [facility] Comment on above: Performed By: #### H EMDF, PT, BMP3M, PHOS3, MG3, CK3 #### [address] #### VD25H #### [facility] [address] [place] [address] Granulocytes/100 WBC (Bld) 79.7 % Normal 40.0-80.0 [facility] Comment on above: Performed By: #### H EMDF, PT, BMP3M, PHOS3, MG3, CK3 #### [facility] [address] [place], [place] #### VD25H #### [facility] [address] [place] [address] Hematocrit Volume Fraction (Bld) 27.1 % Low 40.0-52.0 [facility] Comment on above: Performed By: #### H EMDF, PT, BMP3M, PHOS3, MG3, CK3 #### [place] [address] [place], [place] #### VD25H #### [facility] [address] [place] [address] Hemoglobin mass conc (Bld) 9.2 g/dL Low 13.0-18.0 [facility] Comment on above: Performed By: #### H EMDF, PT, BMP3M, PHOS3, MG3, CK3 #### [address] #### VD25H #### [facility] [address] [place] [address] Lymphocytes #/vol (Bld) 1.0 10*3/uL Normal 1.0-4.3 [facility] Comment on above: Performed By: #### H EMDF, PT, BMP3M, PHOS3, MG3, CK3 #### [address] #### VD25H #### [facility] [address] [place] [address] Lymphocytes/100 WBC (Bld) 10.0 % Low 20.0-40.0 [facility] Comment on above: Performed By: #### H EMDF, PT, BMP3M, PHOS3, MG3, CK3 #### [address] #### VD25H #### [facility] [address] [place] [address] MCH Entitic mass (RBC) 28.5 pg Normal 26.0-34.0 [facility] Comment on above: Performed By: #### H EMDF, PT, BMP3M, PHOS3, MG3, CK3 #### [address] #### VD25H #### [facility] [address] [place] [address] MCHC mass conc (RBC) 33.8 % Normal 32.0-36.0 [facility] Comment on above: Performed By: #### H EMDF, PT, BMP3M, PHOS3, MG3, CK3 #### [address] #### VD25H #### [facility] [address] [place] [address] MCV Entitic volume (RBC) 84.4 fL Normal 80.0-98.0 [facility] Comment on above: Performed By: #### H EMDF, PT, BMP3M, PHOS3, MG3, CK3 #### [address] #### VD25H #### [facility] [address] [place] [address] Monocytes #/vol (Bld) 0.8 10*3/uL Normal 0.0-0.8 [facility] Comment on above: Performed By: #### H EMDF, PT, BMP3M, PHOS3, MG3, CK3 #### [address] #### VD25H #### [facility] [address] [place] [address] Monocytes/100 WBC (Bld) 8.3 % Normal 2.0-10.0 [facility] Comment on above: Performed By: #### H EMDF, PT, BMP3M, PHOS3, MG3, CK3 #### [address] #### VD25H #### [facility] [address] [place] [address] Platelet mean volume Entitic volume (Bld) 8.4 fL Normal 7.4-10.4 [facility] Comment on above: Performed By: #### H EMDF, PT, BMP3M, PHOS3, MG3, CK3 #### [facility] [address] [place], [place] #### VD25H #### [facility] [address] [place] [address] Platelets #/vol (Bld) 245 10*3/uL Normal 140-440 [facility] Comment on above: Performed By: #### H EMDF, PT, BMP3M, PHOS3, MG3, CK3 #### [address] #### VD25H #### [facility] [address] [place] [address] RBC #/vol (Bld) 3.21 10*6/uL Low 4.40-5.90 [facility] Comment on above: Performed By: #### H EMDF, PT, BMP3M, PHOS3, MG3, CK3 #### [address] #### VD25H #### [facility] [address] [place] [address] WBC #/vol (Bld) 9.7 10*3/uL Normal 3.6-10.7 [facility] Comment on above: Performed By: #### H EMDF, PT, BMP3M, PHOS3, MG3, CK3 #### [address] #### VD25H #### [facility] [address] [place] [address] Magnesiumon 08-16-2018 Magnesium mass conc 2.1 mg/dL Normal 1.6-2.3 [facility] Comment on above: Performed By: #### H EMDF, PT, BMP3M, PHOS3, MG3, CK3 #### [address] #### VD25H #### [facility] [address] [place] [address] Phosphoruson 08-16-2018 Phosphate mass conc 4.4 mg/dL Normal 2.5-4.5 [facility] Comment on above: Performed By: #### H EMDF, PT, BMP3M, PHOS3, MG3, CK3 #### [address] #### VD25H #### [facility] [address] [place] [address] Potassiumon 08-16-2018 Potassium molar conc 3.5 mmol/L Normal 3.5-5.1 [facility] Comment on above: Performed By: #### H EMDF, PT, BMP3M, PHOS3, MG3, CK3 #### [address] #### VD25H #### [facility] [address] [place] [address] Procalcitoninon 08-16-2018 Protein mass conc 3.10 ng/mL Abnormal <0.10 [facility] Comment on above: Performed By: #### H EMDF, PT, BMP3M, PHOS3, MG3, CK3 #### [address] #### VD25H #### [facility] [address] [place] [address] Prothrombin Timeon 9 INR Coag RelTime (PPP) 1.1 Normal 0.9-1.1 [facility] Comment on above: Result Comment: Yefri mmended [...] EMDF, PT, BMP3M, PHOS3, MG3, CK3 #### [facility] [address] [place] [address] #### VD25H #### [facility] [address] [place] [address] Prothrombin time (PT) Coag time (PPP) 11.8 s Normal 9.0-12.0 [facility] Comment on above: Result Comment: . Performed By: #### H EMDF, PT, BMP3M, PHOS3, MG3, CK3 #### [facility] [address] [facility] [place] [place] [address] #### VD25H #### [facility] [address] [place] [address] US Abdomen Limitedon 019 US Abdomen Limited Patient Name: KATHYA HOOPER Ultrasound Exam Date/Time 08/16/2018 19:12:00 EDT Exam US Abdomen Limited Ordering Physician [id number] ANNA Accession Number [id number] CPT4 Codes 03416 () Reason For Exam elevated transaminases Report [...] Time: 08/16/2018 7:29 pm Signed by: MD IRIS, ROSHAN [place] Transcribed Date and Time: 08/16/2018 7:26 Normal [facility] Glucose,Bedsideon 08-15-2018 Glucose mass conc 98 mg/dL Normal 70-100 [facility] Comment on above: Result Comment: Test performed by glucose meter. Results may be 10%-15% lower than serum/plasma values. (CLIA ID [id number]) Performed By: #### H EMDF, PT, BMP3M, PHOS3, MG3, CK3 #### [address] #### VD25H #### [address] [place] [address] Procalcitoninon 08-15-2018 Interpretation See Below Normal [facility] Comment on above: Result Comment: PCT <0.50 = Low risk of severe sepsis and/or septic shock. PCT >2.00 = High risk of severe sepsis and/or septic shock. Performed By: #### H EMDF, PT, BMP3M, PHOS3, MG3, CK3 #### [address] #### VD25H #### [address] [place] [address] CULTURE FUNGUSon 08-13-2018 CULTURE FUNGUS CULTURE FUNGUS --> Status: F No fungus isolated after 21 days. Normal [facility] Comment on above: Order Comment: Speci men Source Comment:Body Fluid Performed By: #### H EMDF, PT, BMP3M, PHOS3, MG3, CK3 #### [address] #### VD25H #### [address] [place] [address] Hemogram w/ Autodiffon 08-01 Abs Baso Cnt 0.2 10*3/uL Normal 0.0-0.2 [facility] Comment on above: Performed By: #### H EMDF, PT, BMP3M, PHOS3, MG3, CK3 #### [facility] [address] [place], [place] #### VD25H #### [facility] [address] [place] [address] Abs Neutrophile Cnt 14.3 10*3/uL High 1.8-7.0 [facility] Comment on above: Performed By: #### H EMDF, PT, BMP3M, PHOS3, MG3, CK3 #### [place] [address] [place], [place] #### VD25H #### [facility] [address] [place] [address] Basophils/100 WBC (Bld) 1.0 % Normal 0.0-2.0 [facility] Comment on above: Performed By: #### H EMDF, PT, BMP3M, PHOS3, MG3, CK3 #### [address] #### VD25H #### [facility] [address] [place] [address] Eosinophils #/vol (Bld) 0.4 10*3/uL Normal 0.0-0.5 [facility] Comment on above: Performed By: #### H EMDF, PT, BMP3M, PHOS3, MG3, CK3 #### [address] #### VD25H #### [facility] [address] [place] [address] Eosinophils/100 WBC (Bld) 2.3 % Normal 1.0-6.0 [facility] Comment on above: Performed By: #### H EMDF, PT, BMP3M, PHOS3, MG3, CK3 #### [address] #### VD25H #### [facility] [address] [place] [address] Erythrocyte distribution width Ratio (RBC) 13.7 % Normal 11.5-14.5 [facility] Comment on above: Performed By: #### H EMDF, PT, BMP3M, PHOS3, MG3, CK3 #### [facility] [address] [place], [place] #### VD25H #### [facility] [address] [place] [address] Granulocytes/100 WBC (Bld) 82.1 % High 40.0-80.0 [facility] Comment on above: Performed By: #### H EMDF, PT, BMP3M, PHOS3, MG3, CK3 #### [place] [address] [place], [place] #### VD25H #### [facility] [address] [place] [address] Hematocrit Volume Fraction (Bld) 31.2 % Low 40.0-52.0 [facility] Comment on above: Performed By: #### H EMDF, PT, BMP3M, PHOS3, MG3, CK3 #### [place] [address] [place], [place] #### VD25H #### [facility] [address] [place] [address] Hemoglobin mass conc (Bld) 10.5 g/dL Low 13.0-18.0 [facility] Comment on above: Performed By: #### H EMDF, PT, BMP3M, PHOS3, MG3, CK3 #### [address] #### VD25H #### [facility] [address] [place] [address] Lymphocytes #/vol (Bld) 1.6 10*3/uL Normal 1.0-4.3 [facility] Comment on above: Performed By: #### H EMDF, PT, BMP3M, PHOS3, MG3, CK3 #### [address] [place], [place] #### VD25H #### [facility] [address] [place] [address] Lymphocytes/100 WBC (Bld) 9.1 % Low 20.0-40.0 [facility] Comment on above: Performed By: #### H EMDF, PT, BMP3M, PHOS3, MG3, CK3 #### [place] [address] [place], [place] #### VD25H #### [facility] [address] [place] [address] MCH Entitic mass (RBC) 28.9 pg Normal 26.0-34.0 [facility] Comment on above: Performed By: #### H EMDF, PT, BMP3M, PHOS3, MG3, CK3 #### [address] #### VD25H #### [facility] [address] [place] [address] MCHC mass conc (RBC) 33.7 % Normal 32.0-36.0 [facility] Comment on above: Performed By: #### H EMDF, PT, BMP3M, PHOS3, MG3, CK3 #### [address] #### VD25H #### [facility] [address] [place] [address] MCV Entitic volume (RBC) 85.5 fL Normal 80.0-98.0 [facility] Comment on above: Performed By: #### H EMDF, PT, BMP3M, PHOS3, MG3, CK3 #### [address] #### VD25H #### [facility] [address] [place] [address] Monocytes #/vol (Bld) 1.0 10*3/uL High 0.0-0.8 [facility] Comment on above: Performed By: #### H EMDF, PT, BMP3M, PHOS3, MG3, CK3 #### [address] #### VD25H #### [facility] [address] [place] [address] Monocytes/100 WBC (Bld) 5.5 % Normal 2.0-10.0 [facility] Comment on above: Performed By: #### H EMDF, PT, BMP3M, PHOS3, MG3, CK3 #### [facility] [address] [place], [place] #### VD25H #### [facility] [address] [place] [address] Platelet mean volume Entitic volume (Bld) 8.0 fL Normal 7.4-10.4 [facility] Comment on above: Performed By: #### H EMDF, PT, BMP3M, PHOS3, MG3, CK3 #### [place] [address] [place], [place] #### VD25H #### [facility] [address] [place] [address] Platelets #/vol (Bld) 425 10*3/uL Normal 140-440 [facility] Comment on above: Performed By: #### H EMDF, PT, BMP3M, PHOS3, MG3, CK3 #### [address] #### VD25H #### [facility] [address] [place] [address] RBC #/vol (Bld) 3.65 10*6/uL Low 4.40-5.90 [facility] Comment on above: Performed By: #### H EMDF, PT, BMP3M, PHOS3, MG3, CK3 #### [address] [place], [place] #### VD25H #### [facility] [address] [place] [address] WBC #/vol (Bld) 17.4 10*3/uL High 3.6-10.7 [facility] Comment on above: Performed By: #### H EMDF, PT, BMP3M, PHOS3, MG3, CK3 #### [address] #### VD25H #### [facility] [address] [place] [address] Basic Metabolic Panelon 04-0 Calcium mass conc 8.3 mg/dL Low 8.4-10.4 [facility] Comment on above: Performed By: #### H EMDF, PT, BMP3M, PHOS3, MG3, CK3 #### [place] [address] [place], [place] #### VD25H #### [facility] [address] [place] [address] Glucose mass conc 114 mg/dL High 70-100 [facility] Comment on above: Performed By: #### H EMDF, PT, BMP3M, PHOS3, MG3, CK3 #### [address] #### VD25H #### [place] [address] [place] [address] Anion gap molar conc 10 Normal [facility] Comment on above: Performed By: #### H EMDF, PT, BMP3M, PHOS3, MG3, CK3 #### [address] #### VD25H #### [place] [address] [place] [address] CO2 molar conc 34 mmol/L High 22-30 [facility] Comment on above: Performed By: #### H EMDF, PT, BMP3M, PHOS3, MG3, CK3 #### [address] [place] #### VD25H #### [facility] [address] [place] [address] Creatinine mass conc 0.52 mg/dL Normal 0.52-1.25 [facility] Comment on above: Performed By: #### H EMDF, PT, BMP3M, PHOS3, MG3, CK3 #### [address] #### VD25H #### [place] [address] [place] [address] GFR/1.73 sq M predicted among blacks MDRD vol rate/area (S/P/Bld) mL/min/{1.73_m2} Normal >60 [facility] Comment on above: Performed By: #### H EMDF, PT, BMP3M, PHOS3, MG3, CK3 #### [place] [address] [place], [place] #### VD25H #### [facility] [address] [place] [address] GFR/1.73 sq M predicted among non-blacks MDRD vol rate/area (S/P/Bld) mL/min/{1.73_m2} Normal >60 [facility] Comment on above: Result Comment: Sour ce- MDRD equation with creatinine calibration to IDMS(NKDEP) eGFR not recommended for drug dose adjustment Performed By: #### H EMDF, PT, BMP3M, PHOS3, MG3, CK3 #### [address] #### VD25H #### [facility] [address] [place] [address] Urea nitrogen mass conc 23 mg/dL High 7-20 [facility] Comment on above: Performed By: #### H EMDF, PT, BMP3M, PHOS3, MG3, CK3 #### [address] #### VD25H #### [facility] [address] [place] [address] Chloride molar conc 95 mmol/L Low 98-107 [facility] Comment on above: Performed By: #### H EMDF, PT, BMP3M, PHOS3, MG3, CK3 #### [address] #### VD25H #### [facility] [address] [place] [address] Potassium molar conc 3.7 mmol/L Normal 3.5-5.1 [facility] Comment on above: Performed By: #### H EMDF, PT, BMP3M, PHOS3, MG3, CK3 #### [address] #### VD25H #### [facility] [address] [place] [address] Sodium molar conc 139 mmol/L Normal 135-145 [facility] Comment on above: Performed By: #### H EMDF, PT, BMP3M, PHOS3, MG3, CK3 #### [address] #### VD25H #### [place] [address] [place] [address] Hemogram w/ Autodiffon 07-31 Abs Baso Cnt 0.2 10*3/uL Normal 0.0-0.2 [facility] Comment on above: Performed By: #### H EMDF, PT, BMP3M, PHOS3, MG3, CK3 #### [address] #### VD25H #### [place] [address] [place] [address] Abs Neutrophile Cnt 13.4 10*3/uL High 1.8-7.0 [facility] Comment on above: Performed By: #### H EMDF, PT, BMP3M, PHOS3, MG3, CK3 #### [address] #### VD25H #### [place] [address] [place] [address] Basophils/100 WBC (Bld) 1.0 % Normal 0.0-2.0 [facility] Comment on above: Performed By: #### H EMDF, PT, BMP3M, PHOS3, MG3, CK3 #### [address] #### VD25H #### [place] [address] [place] [address] Eosinophils #/vol (Bld) 0.5 10*3/uL Normal 0.0-0.5 [facility] Comment on above: Performed By: #### H EMDF, PT, BMP3M, PHOS3, MG3, CK3 #### [facility] [address] [place], [place] #### VD25H #### [facility] [address] [place] [address] Eosinophils/100 WBC (Bld) 3.1 % Normal 1.0-6.0 [facility] Comment on above: Performed By: #### H EMDF, PT, BMP3M, PHOS3, MG3, CK3 #### [address] #### VD25H #### [facility] [address] [place] [address] Erythrocyte distribution width Ratio (RBC) 14.0 % Normal 11.5-14.5 [facility] Comment on above: Performed By: #### H EMDF, PT, BMP3M, PHOS3, MG3, CK3 #### [address] #### VD25H #### [facility] [address] [place] [address] Granulocytes/100 WBC (Bld) 80.6 % High 40.0-80.0 [facility] Comment on above: Performed By: #### H EMDF, PT, BMP3M, PHOS3, MG3, CK3 #### [address] #### VD25H #### [facility] [address] [place] [address] Hematocrit Volume Fraction (Bld) 32.3 % Low 40.0-52.0 [facility] Comment on above: Performed By: #### H EMDF, PT, BMP3M, PHOS3, MG3, CK3 #### [address] #### VD25H #### [facility] [address] [place] [address] Hemoglobin mass conc (Bld) 10.8 g/dL Low 13.0-18.0 [facility] Comment on above: Performed By: #### H EMDF, PT, BMP3M, PHOS3, MG3, CK3 #### [address] #### VD25H #### [facility] [address] [place] [address] Lymphocytes #/vol (Bld) 1.6 10*3/uL Normal 1.0-4.3 [facility] Comment on above: Performed By: #### H EMDF, PT, BMP3M, PHOS3, MG3, CK3 #### [address] #### VD25H #### [place] [address] [place] [address] Lymphocytes/100 WBC (Bld) 9.8 % Low 20.0-40.0 [facility] Comment on above: Performed By: #### H EMDF, PT, BMP3M, PHOS3, MG3, CK3 #### [address] #### VD25H #### [facility] [address] [place] [address] MCH Entitic mass (RBC) 28.9 pg Normal 26.0-34.0 [facility] Comment on above: Performed By: #### H EMDF, PT, BMP3M, PHOS3, MG3, CK3 #### [address] #### VD25H #### [facility] [address] [place] [address] MCHC mass conc (RBC) 33.6 % Normal 32.0-36.0 [facility] Comment on above: Performed By: #### H EMDF, PT, BMP3M, PHOS3, MG3, CK3 #### [address] #### VD25H #### [facility] [address] [place] [address] MCV Entitic volume (RBC) 86.1 fL Normal 80.0-98.0 [facility] Comment on above: Performed By: #### H EMDF, PT, BMP3M, PHOS3, MG3, CK3 #### [address] [place], [place] #### VD25H #### [facility] [address] [place] [address] Monocytes #/vol (Bld) 0.9 10*3/uL High 0.0-0.8 [facility] Comment on above: Performed By: #### H EMDF, PT, BMP3M, PHOS3, MG3, CK3 #### [address] #### VD25H #### [facility] [address] [place] [address] Monocytes/100 WBC (Bld) 5.5 % Normal 2.0-10.0 [facility] Comment on above: Performed By: #### H EMDF, PT, BMP3M, PHOS3, MG3, CK3 #### [address] #### VD25H #### [facility] [address] [place] [address] Platelet mean volume Entitic volume (Bld) 8.2 fL Normal 7.4-10.4 [facility] Comment on above: Performed By: #### H EMDF, PT, BMP3M, PHOS3, MG3, CK3 #### [address] #### VD25H #### [facility] [address] [place] [address] Platelets #/vol (Bld) 475 10*3/uL High 140-440 [facility] Comment on above: Performed By: #### H EMDF, PT, BMP3M, PHOS3, MG3, CK3 #### [address] #### VD25H #### [facility] [address] [place] [address] RBC #/vol (Bld) 3.75 10*6/uL Low 4.40-5.90 [facility] Comment on above: Performed By: #### H EMDF, PT, BMP3M, PHOS3, MG3, CK3 #### [address] #### VD25H #### [facility] [address] [place] [address] WBC #/vol (Bld) 16.6 10*3/uL High 3.6-10.7 [facility] Comment on above: Performed By: #### H EMDF, PT, BMP3M, PHOS3, MG3, CK3 #### [address] #### VD25H #### [place] [address] [place] [address] Magnesiumon 07-31-2018 Magnesium mass conc 2.4 mg/dL High 1.6-2.3 [facility] [employer] Comment on above: Performed By: #### H EMDF, PT, BMP3M, PHOS3, MG3, CK3 #### [address] #### VD25H #### [facility] [address] [place] [address] Phosphoruson 07-31-2018 Phosphate mass conc 4.5 mg/dL Normal 2.5-4.5 [facility] [employer] Comment on above: Performed By: #### H EMDF, PT, BMP3M, PHOS3, MG3, CK3 #### [address] #### VD25H #### [place] [address] [place] [address] Basic Metabolic Panelon 04- Calcium mass conc 8.6 mg/dL Normal 8.4-10.4 [facility] Comment on above: Performed By: #### H EMDF, PT, BMP3M, PHOS3, MG3, CK3 #### [facility] [address], [place] #### VD25H #### [facility] [address] [place] [address] Anion gap molar conc 8 Normal [facility] Comment on above: Performed By: #### H EMDF, PT, BMP3M, PHOS3, MG3, CK3 #### [facility] [address] [place], [place] #### VD25H #### [facility] [address] [place] [address] CO2 molar conc 34 mmol/L High 22-30 [facility] Comment on above: Performed By: #### H EMDF, PT, BMP3M, PHOS3, MG3, CK3 #### [address] #### VD25H #### [facility] [address] [place] [address] Creatinine mass conc 0.56 mg/dL Normal 0.52-1.25 [facility] Comment on above: Performed By: #### H EMDF, PT, BMP3M, PHOS3, MG3, CK3 #### [place] [address], [place] #### VD25H #### [facility] [address] [place] [address] GFR/1.73 sq M predicted among blacks MDRD vol rate/area (S/P/Bld) mL/min/{1.73_m2} Normal >60 [facility] Comment on above: Performed By: #### H EMDF, PT, BMP3M, PHOS3, MG3, CK3 #### [place] [address], [place] #### VD25H #### [facility] [address] [place] [address] GFR/1.73 sq M predicted among non-blacks MDRD vol rate/area (S/P/Bld) mL/min/{1.73_m2} Normal >60 [facility] Comment on above: Result Comment: Sour ce- MDRD equation with creatinine calibration to IDMS(NKDEP) eGFR not recommended for drug dose adjustment Performed By: #### H EMDF, PT, BMP3M, PHOS3, MG3, CK3 #### [facility] [address] [place], [place] #### VD25H #### [facility] [address] [place] [address] Glucose mass conc 121 mg/dL High 70-100 [facility] Comment on above: Performed By: #### H EMDF, PT, BMP3M, PHOS3, MG3, CK3 #### [place] [address] [place], [place] #### VD25H #### [facility] [address] [place] [address] Urea nitrogen mass conc 29 mg/dL High 7-20 [facility] Comment on above: Performed By: #### H EMDF, PT, BMP3M, PHOS3, MG3, CK3 #### [place] [address] [place], [place] #### VD25H #### [facility] [address] [place] [address] Chloride molar conc 99 mmol/L Normal 98-107 [facility] Comment on above: Performed By: #### H EMDF, PT, BMP3M, PHOS3, MG3, CK3 #### [place] [address] [place], [place] #### VD25H #### [facility] [address] [place] [address] Potassium molar conc 3.7 mmol/L Normal 3.5-5.1 [facility] Comment on above: Performed By: #### H EMDF, PT, BMP3M, PHOS3, MG3, CK3 #### [place] [address] [place], [place] #### VD25H #### [facility] [address] [place] [address] Sodium molar conc 141 mmol/L Normal 135-145 [facility] Comment on above: Performed By: #### H EMDF, PT, BMP3M, PHOS3, MG3, CK3 #### [facility] [address] [facility] [place] [address] #### VD25H #### [facility] [address] [place] [address] CR Abdomen APon 07-30-2018 CR Abdomen AP Patient Name: KATHYA HOOPER Diagnostic Radiology Exam Date/Time 07/30/2018 10:28:42 EDT Exam CR Abdomen AP Ordering Physician INDRA JACOBSON Accession Number [id number] CPT4 Codes 75360 () Reason For Exam abd distension Report [...] Portable Ordering Physician SALO DAVIS Accession Number [id number] CPT4 Codes 47685 () Reason For Exam line reposition Report [...] Ordering Physician MARIA EUGENIA PEREZ Accession Number [id number] CPT4 Codes 65866 () Reason For Exam ETT placement Report [...] Transcribed Date and Time: 07/30/2018 10:26 Normal [facility] Glucose,Bedsideon 07-30-2018 Glucose mass conc 125 mg/dL High 70-100 [facility] Comment on above: Result Comment: Test performed by glucose meter. Results may be 10%-15% lower than serum/plasma values. (CLIA ID [id number]) Performed By: #### H EMDF, PT, BMP3M, PHOS3, MG3, CK3 #### [facility] [address] [place] [address] #### VD25H #### [facility] [address] [place] [address] Glucose mass conc 117 mg/dL High 70-100 [facility] Comment on above: Result Comment: Test performed by glucose meter. Results may be 10%-15% lower than serum/plasma values. (CLIA ID [id number]) Performed By: #### H EMDF, PT, BMP3M, PHOS3, MG3, CK3 #### [facility] [address] [place], [place] #### VD25H #### [facility] [address] [place] [address] Glucose mass conc 44 mg/dL Low 70-100 [facility] Comment on above: Result Comment: Repe ated Test; Test performed by glucose meter. Results may be 10%-15% lower than serum/plasma values. (CLIA ID [id number]) Performed By: #### H EMDF, PT, BMP3M, PHOS3, MG3, CK3 #### [facility] [address], [place] #### VD25H #### [facility] [address] [place] [address] Hemogram w/ Autodiffon 07-30 Abs Baso Cnt 0.2 10*3/uL Normal 0.0-0.2 [facility] Comment on above: Performed By: #### H EMDF, PT, BMP3M, PHOS3, MG3, CK3 #### [address] [place], [place] #### VD25H #### [facility] [address] [place] [address] Abs Neutrophile Cnt 13.2 10*3/uL High 1.8-7.0 [facility] Comment on above: Performed By: #### H EMDF, PT, BMP3M, PHOS3, MG3, CK3 #### [address] [place], [place] #### VD25H #### [facility] [address] [place] [address] Basophils/100 WBC (Bld) 0.9 % Normal 0.0-2.0 [facility] Comment on above: Performed By: #### H EMDF, PT, BMP3M, PHOS3, MG3, CK3 #### [address] #### VD25H #### [facility] [address] [place] [address] Eosinophils #/vol (Bld) 0.5 10*3/uL Normal 0.0-0.5 [facility] Comment on above: Performed By: #### H EMDF, PT, BMP3M, PHOS3, MG3, CK3 #### [address] #### VD25H #### [facility] [address] [place] [address] Eosinophils/100 WBC (Bld) 2.8 % Normal 1.0-6.0 [facility] Comment on above: Performed By: #### H EMDF, PT, BMP3M, PHOS3, MG3, CK3 #### [address] #### VD25H #### [facility] [address] [place] [address] Erythrocyte distribution width Ratio (RBC) 13.7 % Normal 11.5-14.5 [facility] Comment on above: Performed By: #### H EMDF, PT, BMP3M, PHOS3, MG3, CK3 #### [facility] [address] [place] #### VD25H #### [facility] [address] [place] [address] Granulocytes/100 WBC (Bld) 76.6 % Normal 40.0-80.0 [facility] Comment on above: Performed By: #### H EMDF, PT, BMP3M, PHOS3, MG3, CK3 #### [place] [address] [place], [place] #### VD25H #### [facility] [address] [place] [address] Hematocrit Volume Fraction (Bld) 31.4 % Low 40.0-52.0 [facility] Comment on above: Performed By: #### H EMDF, PT, BMP3M, PHOS3, MG3, CK3 #### [address] #### VD25H #### [facility] [address] [place] [address] Hemoglobin mass conc (Bld) 10.6 g/dL Low 13.0-18.0 [facility] Comment on above: Performed By: #### H EMDF, PT, BMP3M, PHOS3, MG3, CK3 #### [address] #### VD25H #### [facility] [address] [place] [address] Lymphocytes #/vol (Bld) 2.2 10*3/uL Normal 1.0-4.3 [facility] Comment on above: Performed By: #### H EMDF, PT, BMP3M, PHOS3, MG3, CK3 #### [address] [place], [place] #### VD25H #### [facility] [address] [place] [address] Lymphocytes/100 WBC (Bld) 12.9 % Low 20.0-40.0 [facility] Comment on above: Performed By: #### H EMDF, PT, BMP3M, PHOS3, MG3, CK3 #### [place] [address] [place], [place] #### VD25H #### [facility] [address] [place] [address] MCH Entitic mass (RBC) 29.2 pg Normal 26.0-34.0 [facility] Comment on above: Performed By: #### H EMDF, PT, BMP3M, PHOS3, MG3, CK3 #### [address] #### VD25H #### [facility] [address] [place] [address] MCHC mass conc (RBC) 33.8 % Normal 32.0-36.0 [facility] Comment on above: Performed By: #### H EMDF, PT, BMP3M, PHOS3, MG3, CK3 #### [address] #### VD25H #### [facility] [address] [place] [address] MCV Entitic volume (RBC) 86.4 fL Normal 80.0-98.0 [facility] Comment on above: Performed By: #### H EMDF, PT, BMP3M, PHOS3, MG3, CK3 #### [address] #### VD25H #### [facility] [address] [place] [address] Monocytes #/vol (Bld) 1.2 10*3/uL High 0.0-0.8 [facility] Comment on above: Performed By: #### H EMDF, PT, BMP3M, PHOS3, MG3, CK3 #### [address] #### VD25H #### [facility] [address] [place] [address] Monocytes/100 WBC (Bld) 6.8 % Normal 2.0-10.0 [facility] Comment on above: Performed By: #### H EMDF, PT, BMP3M, PHOS3, MG3, CK3 #### [facility] [address] [place], [place] #### VD25H #### [facility] [address] [place] [address] Platelet mean volume Entitic volume (Bld) 8.1 fL Normal 7.4-10.4 [facility] Comment on above: Performed By: #### H EMDF, PT, BMP3M, PHOS3, MG3, CK3 #### [place] [address] [place] #### VD25H #### [facility] [address] [place] [address] Platelets #/vol (Bld) 507 10*3/uL High 140-440 [facility] Comment on above: Performed By: #### H EMDF, PT, BMP3M, PHOS3, MG3, CK3 #### [place] [address] [place] #### VD25H #### [facility] [address] [place] [address] RBC #/vol (Bld) 3.64 10*6/uL Low 4.40-5.90 [facility] Comment on above: Performed By: #### H EMDF, PT, BMP3M, PHOS3, MG3, CK3 #### [facility] [address] [place], [place] #### VD25H #### [facility] [address] [place] [address] WBC #/vol (Bld) 17.2 10*3/uL High 3.6-10.7 [facility] Comment on above: Performed By: #### H EMDF, PT, BMP3M, PHOS3, MG3, CK3 #### [address] [address] [place], [place] #### VD25H #### [facility] [address] [place] [address] Magnesiumon 07-30-2018 Magnesium mass conc 2.5 mg/dL High 1.6-2.3 [facility] Comment on above: Performed By: #### H EMDF, PT, BMP3M, PHOS3, MG3, CK3 #### [facility] [address] [place] [address] #### VD25H #### [facility] [address] [place] [address] Phosphoruson 07-30-2018 Phosphate mass conc 4.5 mg/dL Normal 2.5-4.5 [facility] Comment on above: Performed By: #### H EMDF, PT, BMP3M, PHOS3, MG3, CK3 #### [facility] [address] [place] [address] #### VD25H #### [facility] [address] [place] [address] VL Venous Duplex US Lower Ex t Bilateralon 07-30-2018 VL Venous Duplex US Lower Ext Bilateral Patient Name: KATHYA HOOPER Ultrasound Exam Date/Time 07/30/2018 12:27:47 EDT Exam VL Venous Duplex US Lower Ext Bilateral Ordering Physician ETIENNE MARTÍNEZ JULIE Accession Number [id number] CPT4 Codes 23861 () Reason For Exam edema Report [facility] --- Lower Extremity Venous Duplex Report Patient Name: Kathya Hooper : 1955 Study Date: 07/30/2018 W (63yrs) Age: 63 Account: [id number] Gender: M Loc: T209 BP: Ordering: Yesenia Martínez Technologist: Ordering Physician: Yesenia Martínez Coverstitch Elastic Attacher: Barbara Suarez RDMS, T Interpreting Physician: Krysta Arora --- Location: [facility] --- INDICATIONS: Edema. --- CONCLUSIONS 1. [...] performed. The images were obtained using a [employer] E9 vascular ultrasound machine. --- VENOUS FLOW [...] ---------+-------+--- --+ Electronically signed by: Krysta Arora [id number] Final Dictated: 07/30/2018 1:30 pm Dictating Physician: KRYSTA ARORA Signed Date and Time: 07/30/2018 1:29 pm Signed by: KRYSTA ARORA Normal [facility] Arterial Blood Gaseson 07-29 CO2 molar conc 34.4 mmol/L High 23.0-27.0 [facility] Comment on above: Performed By: #### H EMDF, PT, BMP3M, PHOS3, MG3, CK3 #### [address] #### VD25H #### [facility] [address] [place] [address] HCO3 molar conc (Bld) 33.0 mmol/L High 21.0-25.0 [facility] Comment on above: Performed By: #### H EMDF, PT, BMP3M, PHOS3, MG3, CK3 #### [address] [address] [place], [place] #### VD25H #### [facility] [address] [place] [address] Hemoglobin mass conc (Bld) 11.5 g/dL Normal [facility] Comment on above: Performed By: #### H EMDF, PT, BMP3M, PHOS3, MG3, CK3 #### [address] [address] [place], [place] #### VD25H #### [facility] [address] [place] [address] Oxygen ppres (Bld) 84.2 mm[Hg] Normal 80.0-100.0 [facility] Comment on above: Performed By: #### H EMDF, PT, BMP3M, PHOS3, MG3, CK3 #### [address] #### VD25H #### [facility] [address] [place] [address] Oxygen saturation in Blood 96.2 % Normal 95.0-100.0 [facility] Comment on above: Performed By: #### H EMDF, PT, BMP3M, PHOS3, MG3, CK3 #### [facility] [address] [place] #### VD25H #### [facility] [address] [place] [address] pCO2 46.8 mm[Hg] High 35.0-45.0 [facility] Comment on above: Performed By: #### H EMDF, PT, BMP3M, PHOS3, MG3, CK3 #### [address] [place] [address] [place], [place] #### VD25H #### [facility] [address] [place] [address] pH (Bld) 7.466 High 7.350-7.450 [facility] Comment on above: Performed By: #### H EMDF, PT, BMP3M, PHOS3, MG3, CK3 #### [place] [address] [place] #### VD25H #### [facility] [address] [place] [address] Std Base Excess 8.2 mmol/L High -3.0-3.0 [facility] Comment on above: Performed By: #### H EMDF, PT, BMP3M, PHOS3, MG3, CK3 #### [address] [address] [place] #### VD25H #### [facility] [address] [place] [address] FIO2 .30 Normal [facility] Comment on above: Performed By: #### H EMDF, PT, BMP3M, PHOS3, MG3, CK3 #### [address] #### VD25H #### [facility] [address] [place] [address] Basic Metabolic Panelon 03-3 1-2019 Calcium mass conc 8.5 mg/dL Normal 8.4-10.4 [facility] Comment on above: Performed By: #### H EMDF, PT, BMP3M, PHOS3, MG3, CK3 #### [facility] [address] [place] #### VD25H #### [facility] [address] [place] [address] Glucose mass conc 163 mg/dL High 70-100 [facility] Comment on above: Performed By: #### H EMDF, PT, BMP3M, PHOS3, MG3, CK3 #### [place] [address] [place] #### VD25H #### [facility] [address] [place] [address] Anion gap molar conc 10 Normal [facility] Comment on above: Performed By: #### H EMDF, PT, BMP3M, PHOS3, MG3, CK3 #### [place] [address] [place] #### VD25H #### [facility] [address] [place] [address] CO2 molar conc 37 mmol/L High 22-[address] [facility] Comment on above: Performed By: #### H EMDF, PT, BMP3M, PHOS3, MG3, CK3 #### [address] [address] [place] #### VD25H #### [facility] [address] [place] [address] Creatinine mass conc 0.57 mg/dL Normal 0.52-1.25 [facility] Comment on above: Performed By: #### H EMDF, PT, BMP3M, PHOS3, MG3, CK3 #### [facility] [address] [place] #### VD25H #### [facility] [address] [place] [address] GFR/1.73 sq M predicted among blacks MDRD vol rate/area (S/P/Bld) mL/min/{1.73_m2} Normal >60 [facility] Comment on above: Performed By: #### H EMDF, PT, BMP3M, PHOS3, MG3, CK3 #### [facility] [address] [place] [address] #### VD25H #### [facility] [address] [place] [address] GFR/1.73 sq M predicted among non-blacks MDRD vol rate/area (S/P/Bld) mL/min/{1.73_m2} Normal >60 [facility] Comment on above: Result Comment: Sour ce- MDRD equation with creatinine calibration to IDMS(NKDEP) eGFR not recommended for drug dose adjustment Performed By: #### H EMDF, PT, BMP3M, PHOS3, MG3, CK3 #### [place] [address] [place] #### VD25H #### [facility] [address] [place] [address] Urea nitrogen mass conc 30 mg/dL High 7-20 [facility] Comment on above: Performed By: #### H EMDF, PT, BMP3M, PHOS3, MG3, CK3 #### [address] [place] [address] #### VD25H #### [facility] [address] [place] [address] Chloride molar conc 95 mmol/L Low 98-107 [facility] Comment on above: Performed By: #### H EMDF, PT, BMP3M, PHOS3, MG3, CK3 #### [place] [address] [place] [address] #### VD25H #### [facility] [address] [place] [address] Potassium molar conc 3.3 mmol/L Low 3.5-5.1 [facility] Comment on above: Performed By: #### H EMDF, PT, BMP3M, PHOS3, MG3, CK3 #### [address] [place] [address] #### VD25H #### [facility] [address] [place] [address] Sodium molar conc 141 mmol/L Normal 135-145 [facility] Comment on above: Performed By: #### H EMDF, PT, BMP3M, PHOS3, MG3, CK3 #### [facility] [address] [place] #### VD25H #### [facility] [address] [place] [address] CR Chest Portableon 07-30-19 19 CR Chest Portable Patient Name: KATHYA HOOPER Diagnostic Radiology Exam Date/Time 07/29/2018 07:01:44 EDT Exam CR Chest Portable Ordering Physician MARIA EUGENIA PEREZ Accession Number [id number] CPT4 Codes 34553 () Reason For Exam ETT placement Report [...] Transcribed Date and Time: 07/29/2018 9:04 Normal [facility] Glucose,Bedsideon 07-29-2018 Glucose mass conc 124 mg/dL High 70-100 [facility] Comment on above: Result Comment: Test performed by glucose meter. Results may be 10%-15% lower than serum/plasma values. (CLIA ID [id number]) Performed By: #### H EMDF, PT, BMP3M, PHOS3, MG3, CK3 #### [facility] [address] [place], [place] #### VD25H #### [facility] [address] [place] [address] Glucose mass conc 175 mg/dL High 70-100 [facility] Comment on above: Result Comment: Test performed by glucose meter. Results may be 10%-15% lower than serum/plasma values. (CLIA ID [id number]) Performed By: #### H EMDF, PT, BMP3M, PHOS3, MG3, CK3 #### [facility] [address] [place] [address] #### VD25H #### [facility] [address] [place] [address] Glucose mass conc 138 mg/dL High 70-100 [facility] Comment on above: Result Comment: Test performed by glucose meter. Results may be 10%-15% lower than serum/plasma values. (CLIA ID [id number]) Performed By: #### H EMDF, PT, BMP3M, PHOS3, MG3, CK3 #### [facility] [address] [place] [address] #### VD25H #### [facility] [address] [place] [address] Glucose mass conc 147 mg/dL High 70-100 [facility] Comment on above: Result Comment: Test performed by glucose meter. Results may be 10%-15% lower than serum/plasma values. (CLIA ID [id number]) Performed By: #### H EMDF, PT, BMP3M, PHOS3, MG3, CK3 #### [facility] [address], [place] #### VD25H #### [facility] [address] [place] [address] Hemogram w/ Autodiffon 07-29 Erythrocyte distribution width Ratio (RBC) 13.8 % Normal 11.5-14.5 [facility] Comment on above: Performed By: #### H EMDF, PT, BMP3M, PHOS3, MG3, CK3 #### [address] #### VD25H #### [facility] [address] [place] [address] Hematocrit Volume Fraction (Bld) 32.9 % Low 40.0-52.0 [facility] Comment on above: Performed By: #### H EMDF, PT, BMP3M, PHOS3, MG3, CK3 #### [address] #### VD25H #### [facility] [address] [place] [address] Hemoglobin mass conc (Bld) 11.0 g/dL Low 13.0-18.0 [facility] Comment on above: Performed By: #### H EMDF, PT, BMP3M, PHOS3, MG3, CK3 #### [address] #### VD25H #### [facility] [address] [place] [address] MCH Entitic mass (RBC) 29.0 pg Normal 26.0-34.0 [facility] Comment on above: Performed By: #### H EMDF, PT, BMP3M, PHOS3, MG3, CK3 #### [address] #### VD25H #### [facility] [address] [place] [address] MCHC mass conc (RBC) 33.6 % Normal 32.0-36.0 [facility] Comment on above: Performed By: #### H EMDF, PT, BMP3M, PHOS3, MG3, CK3 #### [address] #### VD25H #### [facility] [address] [place] [address] MCV Entitic volume (RBC) 86.3 fL Normal 80.0-98.0 [facility] Comment on above: Performed By: #### H EMDF, PT, BMP3M, PHOS3, MG3, CK3 #### [address] [place], [place] #### VD25H #### [facility] [address] [place] [address] Platelet mean volume Entitic volume (Bld) 8.1 fL Normal 7.4-10.4 [facility] Comment on above: Performed By: #### H EMDF, PT, BMP3M, PHOS3, MG3, CK3 #### [address] [place], [place] #### VD25H #### [facility] [address] [place] [address] Platelets #/vol (Bld) 501 10*3/uL High 140-440 [facility] Comment on above: Performed By: #### H EMDF, PT, BMP3M, PHOS3, MG3, CK3 #### [address] [place] #### VD25H #### [facility] [address] [place] [address] RBC #/vol (Bld) 3.81 10*6/uL Low 4.40-5.90 [facility] Comment on above: Performed By: #### H EMDF, PT, BMP3M, PHOS3, MG3, CK3 #### [address] [place] #### VD25H #### [facility] [address] [place] [address] WBC #/vol (Bld) 20.8 10*3/uL High 3.6-10.7 [facility] Comment on above: Performed By: #### H EMDF, PT, BMP3M, PHOS3, MG3, CK3 #### [address] #### VD25H #### [place] [address] [place] [address] Magnesiumon 07-29-2018 Magnesium mass conc 2.5 mg/dL High 1.6-2.3 [facility] Comment on above: Performed By: #### H EMDF, PT, BMP3M, PHOS3, MG3, CK3 #### [facility] [address] [place] #### VD25H #### [facility] [address] [place] [address] Manual Diffon 07-29-2018 Abs Neutrophile Cnt 17.3 10*3/uL High 2.2-8.2 [facility] Comment on above: Performed By: #### H EMDF, PT, BMP3M, PHOS3, MG3, CK3 #### [address] #### VD25H #### [facility] [address] [place] [address] Bands 1 % Normal 0-3 [facility] Comment on above: Performed By: #### H EMDF, PT, BMP3M, PHOS3, MG3, CK3 #### [address] #### VD25H #### [facility] [address] [place] [address] Eosinophils #/vol (Bld) 0.6 10*3/uL High 0.0-0.5 [facility] Comment on above: Performed By: #### H EMDF, PT, BMP3M, PHOS3, MG3, CK3 #### [address] [place] #### VD25H #### [facility] [address] [place] [address] Eosinophils/100 WBC (Bld) 3 % Normal 1-6 [facility] Comment on above: Performed By: #### H EMDF, PT, BMP3M, PHOS3, MG3, CK3 #### [address] #### VD25H #### [facility] [address] [place] [address] Lymphocytes #/vol (Bld) 2.3 10*3/uL Normal 1.1-4.5 [facility] Comment on above: Performed By: #### H EMDF, PT, BMP3M, PHOS3, MG3, CK3 #### [facility] [address] [place] #### VD25H #### [facility] [address] [place] [address] Lymphocytes/100 WBC (Bld) 11 % Low 20-40 [facility] Comment on above: Performed By: #### H EMDF, PT, BMP3M, PHOS3, MG3, CK3 #### [address] [place], [place] #### VD25H #### [facility] [address] [place] [address] Metamyelocytes 1 % Abnormal <[address] [facility] Comment on above: Performed By: #### H EMDF, PT, BMP3M, PHOS3, MG3, CK3 #### [place] [address] [place] #### VD25H #### [facility] [address] [place] [address] Monocytes #/vol (Bld) 0.4 10*3/uL Normal 0.2-1.1 [facility] Comment on above: Performed By: #### H EMDF, PT, BMP3M, PHOS3, MG3, CK3 #### [place] [address] [place] #### VD25H #### [facility] [address] [place] [address] Monocytes/100 WBC (Bld) 2 % Normal 2-10 [facility] Comment on above: Performed By: #### H EMDF, PT, BMP3M, PHOS3, MG3, CK3 #### [place] [address] [place] #### VD25H #### [facility] [address] [place] [address] RBC morphology finding Nom (Bld) See Prev Normal [facility] Comment on above: Performed By: #### H EMDF, PT, BMP3M, PHOS3, MG3, CK3 #### [place] [address] [place] #### VD25H #### [facility] [address] [place] [address] Seg Neutrophils 82 % High 40-80 [facility] Comment on above: Performed By: #### H EMDF, PT, BMP3M, PHOS3, MG3, CK3 #### [place] [address] [place], [place] #### VD25H #### [facility] [address] [place] [address] Abs Baso Cnt 0.0 10*3/uL Normal 0.0-0.2 [facility] Comment on above: Performed By: #### H EMDF, PT, BMP3M, PHOS3, MG3, CK3 #### [place] [address] [place], [place] #### VD25H #### [facility] [address] [place] [address] Basophils/100 WBC (Bld) 0 % Normal 0-2 [facility] Comment on above: Performed By: #### H EMDF, PT, BMP3M, PHOS3, MG3, CK3 #### [address] #### VD25H #### [facility] [address] [place] [address] Cells counted 100 Normal [facility] Comment on above: Performed By: #### H EMDF, PT, BMP3M, PHOS3, MG3, CK3 #### [address] #### VD25H #### [facility] [address] [place] [address] Phosphoruson 07-29-2018 Phosphate mass conc 4.2 mg/dL Normal 2.5-4.5 [facility] Comment on above: Performed By: #### H EMDF, PT, BMP3M, PHOS3, MG3, CK3 #### [address] #### VD25H #### [facility] [address] [place] [address] Procalcitoninon 07-29-2018 Protein mass conc 0.11 ng/mL Abnormal <0.10 [facility] Comment on above: Performed By: #### H EMDF, PT, BMP3M, PHOS3, MG3, CK3 #### [address] #### VD25H #### [address] [place] [address] Interpretation See Below Normal [facility] Comment on above: Result Comment: PCT <0.50 = Low risk of severe sepsis and/or septic shock. PCT >2.00 = High risk of severe sepsis and/or septic shock. Performed By: #### H EMDF, PT, BMP3M, PHOS3, MG3, CK3 #### [address] #### VD25H #### [facility] [address] [place] [place] [address] Vancomycin Troughon 07-30-19 19 Vancomycin Trough 12.2 ug/mL Low 15.0-20.0 [facility] Comment on above: Result Comment: . Performed By: #### H EMDF, PT, BMP3M, PHOS3, MG3, CK3 #### [address] #### VD25H #### [address] [place] [address] Basic Metabolic Panelon 07-01 Calcium mass conc 8.6 mg/dL Normal 8.4-10.4 [facility] Comment on above: Performed By: #### H EMDF, PT, BMP3M, PHOS3, MG3, CK3 #### [address] #### VD25H #### [facility] [address] [place] [address] Glucose mass conc 158 mg/dL High 70-100 [facility] Comment on above: Performed By: #### H EMDF, PT, BMP3M, PHOS3, MG3, CK3 #### [place] [place], [place] #### VD25H #### [facility] [address] [place] [address] Urea nitrogen mass conc 29 mg/dL High 7-20 [facility] Comment on above: Performed By: #### H EMDF, PT, BMP3M, PHOS3, MG3, CK3 #### [address] [place] #### VD25H #### [facility] [address] [place] [address] Anion gap molar conc 9 Normal [facility] Comment on above: Performed By: #### H EMDF, PT, BMP3M, PHOS3, MG3, CK3 #### [address] [place] #### VD25H #### [facility] [address] [place] [address] CO2 molar conc 32 mmol/L High 22-30 [facility] Comment on above: Performed By: #### H EMDF, PT, BMP3M, PHOS3, MG3, CK3 #### [address] [facility], [place] #### VD25H #### [facility] [address] [place] [address] Creatinine mass conc 0.61 mg/dL Normal 0.52-1.25 [facility] Comment on above: Performed By: #### H EMDF, PT, BMP3M, PHOS3, MG3, CK3 #### [address] [place] #### VD25H #### [facility] [address] [place] [address] GFR/1.73 sq M predicted among blacks MDRD vol rate/area (S/P/Bld) mL/min/{1.73_m2} Normal >60 [facility] Comment on above: Performed By: #### H EMDF, PT, BMP3M, PHOS3, MG3, CK3 #### [address] #### VD25H #### [facility] [address] [place] [address] GFR/1.73 sq M predicted among non-blacks MDRD vol rate/area (S/P/Bld) mL/min/{1.73_m2} Normal >60 [facility] Comment on above: Result Comment: Sour ce- MDRD equation with creatinine calibration to IDMS(NKDEP) eGFR not recommended for drug dose adjustment Performed By: #### H EMDF, PT, BMP3M, PHOS3, MG3, CK3 #### [address] #### VD25H #### [facility] [address] [place] [address] Potassium molar conc 3.6 mmol/L Normal 3.5-5.1 [facility] Comment on above: Performed By: #### H EMDF, PT, BMP3M, PHOS3, MG3, CK3 #### [address] #### VD25H #### [facility] [address] [place] [address] Chloride molar conc 100 mmol/L Normal 98-107 [facility] Comment on above: Performed By: #### H EMDF, PT, BMP3M, PHOS3, MG3, CK3 #### [address] #### VD25H #### [facility] [address] [place] [address] Sodium molar conc 141 mmol/L Normal 135-145 [facility] Comment on above: Performed By: #### H EMDF, PT, BMP3M, PHOS3, MG3, CK3 #### [facility] [address] [place] #### VD25H #### [facility] [employer] [facility] [address] [place] [address] CR Chest Portableon 07-29-19 19 CR Chest Portable Patient Name: KATHYA HOOPER Diagnostic Radiology Exam Date/Time 07/28/2018 07:09:40 EDT Exam CR Chest Portable Ordering Physician MARIA EUGENIA PEREZ Accession Number [id number] CPT4 Codes 34088 () Reason For Exam ETT placement Report [...] Transcribed Date and Time: 07/28/2018 7:16 Normal [facility] [employer] [facility] Glucose,Bedsideon 07-28-2018 Glucose mass conc 149 mg/dL High 70-100 [facility] [employer] [facility] Comment on above: Result Comment: Test performed by glucose meter. Results may be 10%-15% lower than serum/plasma values. (CLIA ID [id number]) Performed By: #### H EMDF, PT, BMP3M, PHOS3, MG3, CK3 #### [facility] [address] [place], [place] #### VD25H #### [facility] [employer] [facility] [address] [place] [address] Glucose mass conc 142 mg/dL High 70-100 [facility] Comment on above: Result Comment: Test performed by glucose meter. Results may be 10%-15% lower than serum/plasma values. (CLIA ID [id number]) Performed By: #### H EMDF, PT, BMP3M, PHOS3, MG3, CK3 #### [address] #### VD25H #### [facility] [address] [place] [address] Hemogram w/ Autodiffon 07-28 Erythrocyte distribution width Ratio (RBC) 13.8 % Normal 11.5-14.5 [facility] Comment on above: Performed By: #### H EMDF, PT, BMP3M, PHOS3, MG3, CK3 #### [address] #### VD25H #### [facility] [address] [place] [address] Hematocrit Volume Fraction (Bld) 33.0 % Low 40.0-52.0 [facility] Comment on above: Performed By: #### H EMDF, PT, BMP3M, PHOS3, MG3, CK3 #### [address] #### VD25H #### [facility] [address] [place] [address] Hemoglobin mass conc (Bld) 11.0 g/dL Low 13.0-18.0 [facility] Comment on above: Performed By: #### H EMDF, PT, BMP3M, PHOS3, MG3, CK3 #### [address] #### VD25H #### [facility] [address] [place] [address] MCH Entitic mass (RBC) 28.7 pg Normal 26.0-34.0 [facility] Comment on above: Performed By: #### H EMDF, PT, BMP3M, PHOS3, MG3, CK3 #### [address] [place], [place] #### VD25H #### [facility] [address] [place] [address] MCHC mass conc (RBC) 33.4 % Normal 32.0-36.0 [facility] Comment on above: Performed By: #### H EMDF, PT, BMP3M, PHOS3, MG3, CK3 #### [address] [place] #### VD25H #### [facility] [address] [place] [address] MCV Entitic volume (RBC) 86.0 fL Normal 80.0-98.0 [facility] Comment on above: Performed By: #### H EMDF, PT, BMP3M, PHOS3, MG3, CK3 #### [address] #### VD25H #### [facility] [address] [place] [address] Platelet mean volume Entitic volume (Bld) 8.4 fL Normal 7.4-10.4 [facility] Comment on above: Performed By: #### H EMDF, PT, BMP3M, PHOS3, MG3, CK3 #### [address] #### VD25H #### [facility] [address] [place] [address] Platelets #/vol (Bld) 477 10*3/uL High 140-440 [facility] Comment on above: Performed By: #### H EMDF, PT, BMP3M, PHOS3, MG3, CK3 #### [address] #### VD25H #### [facility] [address] [place] [address] RBC #/vol (Bld) 3.84 10*6/uL Low 4.40-5.90 [facility] Comment on above: Performed By: #### H EMDF, PT, BMP3M, PHOS3, MG3, CK3 #### [address] #### VD25H #### [facility] [address] [place] [address] WBC #/vol (Bld) 18.1 10*3/uL High 3.6-10.7 [facility] Comment on above: Performed By: #### H EMDF, PT, BMP3M, PHOS3, MG3, CK3 #### [address] #### VD25H #### [facility] [address] [place] [address] Magnesiumon 07-28-2018 Magnesium mass conc 2.4 mg/dL High 1.6-2.3 [facility] Comment on above: Performed By: #### H EMDF, PT, BMP3M, PHOS3, MG3, CK3 #### [address] #### VD25H #### [facility] [address] [place] [address] Manual Diffon 07-28-2018 Abs Neutrophile Cnt 14.8 10*3/uL High 2.2-8.2 [facility] Comment on above: Performed By: #### H EMDF, PT, BMP3M, PHOS3, MG3, CK3 #### [address] #### VD25H #### [facility] [address] [place] [address] Anisocytosis Ql (Bld) Slight Normal [facility] Comment on above: Performed By: #### H EMDF, PT, BMP3M, PHOS3, MG3, CK3 #### [address] #### VD25H #### [facility] [address] [place] [address] Hypochromia Slight Normal [facility] Comment on above: Performed By: #### H EMDF, PT, BMP3M, PHOS3, MG3, CK3 #### [facility] [address] [place] #### VD25H #### [facility] [address] [place] [address] Lymphocytes #/vol (Bld) 1.3 10*3/uL Normal 1.1-4.5 [facility] Comment on above: Performed By: #### H EMDF, PT, BMP3M, PHOS3, MG3, CK3 #### [address] [place] #### VD25H #### [facility] [address] [place] [address] Lymphocytes/100 WBC (Bld) 7 % Low 20-40 [facility] Comment on above: Performed By: #### H EMDF, PT, BMP3M, PHOS3, MG3, CK3 #### [address] [place] #### VD25H #### [facility] [address] [place] [address] Microcytosis Slight Normal [facility] Comment on above: Performed By: #### H EMDF, PT, BMP3M, PHOS3, MG3, CK3 #### [address] [place] #### VD25H #### [facility] [address] [place] [address] Monocytes #/vol (Bld) 2.0 10*3/uL High 0.2-1.1 [facility] Comment on above: Performed By: #### H EMDF, PT, BMP3M, PHOS3, MG3, CK3 #### [address] [place] #### VD25H #### [facility] [address] [place] [address] Monocytes/100 WBC (Bld) 11 % High 2-10 [facility] Comment on above: Performed By: #### H EMDF, PT, BMP3M, PHOS3, MG3, CK3 #### [address] #### VD25H #### [facility] [address] [place] [address] RBC morphology finding Nom (Bld) ABNORMAL Normal [facility] Comment on above: Performed By: #### H EMDF, PT, BMP3M, PHOS3, MG3, CK3 #### [address] [place] #### VD25H #### [facility] [address] [place] [address] Seg Neutrophils 82 % High 40-80 [facility] Comment on above: Performed By: #### H EMDF, PT, BMP3M, PHOS3, MG3, CK3 #### [address] #### VD25H #### [facility] [address] [place] [address] Abs Baso Cnt 0.0 10*3/uL Normal 0.0-0.2 [facility] Comment on above: Performed By: #### H EMDF, PT, BMP3M, PHOS3, MG3, CK3 #### [address] #### VD25H #### [facility] [address] [place] [address] Bands 0 % Normal 0-3 [facility] Comment on above: Performed By: #### H EMDF, PT, BMP3M, PHOS3, MG3, CK3 #### [address] #### VD25H #### [facility] [address] [place] [address] Basophils/100 WBC (Bld) 0 % Normal 0-2 [facility] Comment on above: Performed By: #### H EMDF, PT, BMP3M, PHOS3, MG3, CK3 #### [address] [place] #### VD25H #### [facility] [address] [place] [address] Cells counted 100 Normal [facility] Comment on above: Performed By: #### H EMDF, PT, BMP3M, PHOS3, MG3, CK3 #### [address] #### VD25H #### [facility] [address] [place] [address] Eosinophils #/vol (Bld) 0.0 10*3/uL Normal 0.0-0.5 [facility] Comment on above: Performed By: #### H EMDF, PT, BMP3M, PHOS3, MG3, CK3 #### [address] #### VD25H #### [place] [address] [place] [address] Eosinophils/100 WBC (Bld) 0 % Low 1-6 [facility] Comment on above: Performed By: #### H EMDF, PT, BMP3M, PHOS3, MG3, CK3 #### [address] #### VD25H #### [place] [address] [place] [address] Phosphoruson 07-28-2018 Phosphate mass conc 4.4 mg/dL Normal 2.5-4.5 [facility] Comment on above: Performed By: #### H EMDF, PT, BMP3M, PHOS3, MG3, CK3 #### [address] #### VD25H #### [facility] [address] [place] [address] Vancomycin Troughon 07-29-19 19 Vancomycin Trough 12.9 ug/mL Low 15.0-20.0 [facility] Comment on above: Result Comment: . Performed By: #### H EMDF, PT, BMP3M, PHOS3, MG3, CK3 #### [address] #### VD25H #### [facility] [address] [place] [address] Arterial Blood Gaseson 07-27 CO2 molar conc 28.4 mmol/L High 23.0-27.0 [facility] Comment on above: Performed By: #### H EMDF, PT, BMP3M, PHOS3, MG3, CK3 #### [address] [place] #### VD25H #### [facility] [address] [place] [address] HCO3 molar conc (Bld) 27.2 mmol/L High 21.0-25.0 [facility] Comment on above: Performed By: #### H EMDF, PT, BMP3M, PHOS3, MG3, CK3 #### [address] #### VD25H #### [place] [address] [place] [address] Hemoglobin mass conc (Bld) 11.7 g/dL Normal ScreenOnly [facility] Comment on above: Performed By: #### H EMDF, PT, BMP3M, PHOS3, MG3, CK3 #### [address] #### VD25H #### [place] [address] [place] [address] Oxygen ppres (Bld) 91.3 mm[Hg] Normal 80.0-100.0 [facility] Comment on above: Performed By: #### H EMDF, PT, BMP3M, PHOS3, MG3, CK3 #### [address] #### VD25H #### [place] [address] [place] [address] Oxygen saturation in Blood 96.9 % Normal 95.0-100.0 [facility] Comment on above: Performed By: #### H EMDF, PT, BMP3M, PHOS3, MG3, CK3 #### [address] [place] #### VD25H #### [facility] [address] [place] [address] pCO2 39.0 mm[Hg] Normal 35.0-45.0 [facility] Comment on above: Performed By: #### H EMDF, PT, BMP3M, PHOS3, MG3, CK3 #### [address] [place] #### VD25H #### [facility] [address] [place] [address] pH (Bld) 7.461 High 7.350-7.450 [facility] Comment on above: Performed By: #### H EMDF, PT, BMP3M, PHOS3, MG3, CK3 #### [address] #### VD25H #### [place] [address] [place] [address] Std Base Excess 3.2 mmol/L High -3.0-3.0 [facility] Comment on above: Performed By: #### H EMDF, PT, BMP3M, PHOS3, MG3, CK3 #### [address] #### VD25H #### [place] [address] [place] [address] FIO2 No data Normal [facility] Comment on above: Performed By: #### H EMDF, PT, BMP3M, PHOS3, MG3, CK3 #### [address] #### VD25H #### [facility] [address] [place] [address] Basic Metabolic Panelon 03-2 Anion gap molar conc 12 Normal [facility] Comment on above: Performed By: #### H EMDF, PT, BMP3M, PHOS3, MG3, CK3 #### [facility] [address] [facility], [place] #### VD25H #### [facility] [address] [place] [address] Calcium mass conc 8.3 mg/dL Low 8.4-10.4 [facility] Comment on above: Performed By: #### H EMDF, PT, BMP3M, PHOS3, MG3, CK3 #### [place] [address] [facility], [place] #### VD25H #### [facility] [address] [place] [address] CO2 molar conc 28 mmol/L Normal 22-30 [facility] Comment on above: Performed By: #### H EMDF, PT, BMP3M, PHOS3, MG3, CK3 #### [address], [place] #### VD25H #### [facility] [address] [place] [address] Glucose mass conc 156 mg/dL High 70-100 [facility] Comment on above: Performed By: #### H EMDF, PT, BMP3M, PHOS3, MG3, CK3 #### [place] [address] [facility] #### VD25H #### [facility] [address] [place] [address] Urea nitrogen mass conc 21 mg/dL High 7-20 [facility] Comment on above: Performed By: #### H EMDF, PT, BMP3M, PHOS3, MG3, CK3 #### [address] [facility], [place] #### VD25H #### [facility] [address] [place] [address] Creatinine mass conc 0.53 mg/dL Normal 0.52-1.25 [facility] Comment on above: Performed By: #### H EMDF, PT, BMP3M, PHOS3, MG3, CK3 #### [address] [place] #### VD25H #### [facility] [address] [place] [address] GFR/1.73 sq M predicted among blacks MDRD vol rate/area (S/P/Bld) mL/min/{1.73_m2} Normal >60 [facility] Comment on above: Performed By: #### H EMDF, PT, BMP3M, PHOS3, MG3, CK3 #### [address] [place] #### VD25H #### [place] [address] [place] [address] GFR/1.73 sq M predicted among non-blacks MDRD vol rate/area (S/P/Bld) mL/min/{1.73_m2} Normal >60 [facility] Comment on above: Result Comment: Sour ce- MDRD equation with creatinine calibration to IDMS(NKDEP) eGFR not recommended for drug dose adjustment Performed By: #### H EMDF, PT, BMP3M, PHOS3, MG3, CK3 #### [address] [place], [place] #### VD25H #### [place] [address] [place] [address] Potassium molar conc 3.2 mmol/L Low 3.5-5.1 [facility] Comment on above: Performed By: #### H EMDF, PT, BMP3M, PHOS3, MG3, CK3 #### [address] [place] #### VD25H #### [facility] [address] [place] [address] Chloride molar conc 99 mmol/L Normal 98-107 [facility] Comment on above: Performed By: #### H EMDF, PT, BMP3M, PHOS3, MG3, CK3 #### [address] #### VD25H #### [facility] [address] [place] [address] Sodium molar conc 139 mmol/L Normal 135-145 [facility] Comment on above: Performed By: #### H EMDF, PT, BMP3M, PHOS3, MG3, CK3 #### [facility] [employer] [address] [place], [place] #### VD25H #### [facility] [employer] [facility] [address] [place] [address] CR Chest Portableon 07-28-19 19 CR Chest Portable Patient Name: KATHYA HOOPER Diagnostic Radiology Exam Date/Time 07/27/2018 07:08:59 EDT Exam CR Chest Portable Ordering Physician MARIA EUGENIA PEREZ Accession Number [id number] CPT4 Codes 72568 () Reason For Exam ETT placement Report [...] Transcribed Date and Time: 07/27/2018 8:02 Normal [facility] [employer] Glucose,Bedsideon 07-27-2018 Glucose mass conc 151 mg/dL High 70-100 [facility] Comment on above: Result Comment: Test performed by glucose meter. Results may be 10%-15% lower than serum/plasma values. (CLIA ID [id number]) Performed By: #### H EMDF, PT, BMP3M, PHOS3, MG3, CK3 #### [facility] [address] [place] [address] #### VD25H #### [facility] [address] [place] [address] Glucose mass conc 131 mg/dL High 70-100 [facility] Comment on above: Result Comment: Test performed by glucose meter. Results may be 10%-15% lower than serum/plasma values. (CLIA ID [id number]) Performed By: #### H EMDF, PT, BMP3M, PHOS3, MG3, CK3 #### [facility] [address] [place], [place] #### VD25H #### [facility] [address] [place] [address] Glucose mass conc 123 mg/dL High 70-100 [facility] Comment on above: Result Comment: Test performed by glucose meter. Results may be 10%-15% lower than serum/plasma values. (CLIA ID [id number]) Performed By: #### H EMDF, PT, BMP3M, PHOS3, MG3, CK3 #### [facility] [address] [place] [address] #### VD25H #### [facility] [facility] [address] [place] [address] Glucose mass conc 133 mg/dL High 70-100 [facility] Comment on above: Result Comment: Test performed by glucose meter. Results may be 10%-15% lower than serum/plasma values. (CLIA ID [id number]) Performed By: #### H EMDF, PT, BMP3M, PHOS3, MG3, CK3 #### [facility] [address] [place] [address] #### VD25H #### [facility] [address] [place] [address] Hemogram w/ Autodiffon 07-27 Erythrocyte distribution width Ratio (RBC) 13.5 % Normal 11.5-14.5 [facility] [employer] Comment on above: Performed By: #### H EMDF, PT, BMP3M, PHOS3, MG3, CK3 #### [facility] [address] [place] [address] #### VD25H #### [facility] [address] [place] [address] Hematocrit Volume Fraction (Bld) 32.5 % Low 40.0-52.0 [facility] Comment on above: Performed By: #### H EMDF, PT, BMP3M, PHOS3, MG3, CK3 #### [place] [address] [place], [place] #### VD25H #### [facility] [address] [place] [address] Hemoglobin mass conc (Bld) 11.1 g/dL Low 13.0-18.0 [facility] Comment on above: Performed By: #### H EMDF, PT, BMP3M, PHOS3, MG3, CK3 #### [address] #### VD25H #### [facility] [address] [place] [address] MCH Entitic mass (RBC) 29.2 pg Normal 26.0-34.0 [facility] Comment on above: Performed By: #### H EMDF, PT, BMP3M, PHOS3, MG3, CK3 #### [address] #### VD25H #### [facility] [address] [place] [address] MCHC mass conc (RBC) 34.1 % Normal 32.0-36.0 [facility] Comment on above: Performed By: #### H EMDF, PT, BMP3M, PHOS3, MG3, CK3 #### [address] #### VD25H #### [facility] [address] [place] [address] MCV Entitic volume (RBC) 85.7 fL Normal 80.0-98.0 [facility] Comment on above: Performed By: #### H EMDF, PT, BMP3M, PHOS3, MG3, CK3 #### [address] #### VD25H #### [facility] [address] [place] [address] Platelet mean volume Entitic volume (Bld) 7.9 fL Normal 7.4-10.4 [facility] Comment on above: Performed By: #### H EMDF, PT, BMP3M, PHOS3, MG3, CK3 #### [place] [address] [place] #### VD25H #### [facility] [address] [place] [address] Platelets #/vol (Bld) 466 10*3/uL High 140-440 [facility] Comment on above: Performed By: #### H EMDF, PT, BMP3M, PHOS3, MG3, CK3 #### [address] #### VD25H #### [place] [address] [place] [address] RBC #/vol (Bld) 3.79 10*6/uL Low 4.40-5.90 [facility] Comment on above: Performed By: #### H EMDF, PT, BMP3M, PHOS3, MG3, CK3 #### [address] #### VD25H #### [place] [address] [place] [address] WBC #/vol (Bld) 18.7 10*3/uL High 3.6-10.7 [facility] Comment on above: Performed By: #### H EMDF, PT, BMP3M, PHOS3, MG3, CK3 #### [address] #### VD25H #### [place] [address] [place] [address] Magnesiumon 07-27-2018 Magnesium mass conc 2.1 mg/dL Normal 1.6-2.3 [facility] Comment on above: Performed By: #### H EMDF, PT, BMP3M, PHOS3, MG3, CK3 #### [address] [place], [place] #### VD25H #### [facility] [address] [place] [address] Manual Diffon 07-27-2018 RBC morphology finding Nom (Bld) Normal Normal [facility] Comment on above: Performed By: #### H EMDF, PT, BMP3M, PHOS3, MG3, CK3 #### [place] [address] [place], [place] #### VD25H #### [facility] [address] [place] [address] Abs Neutrophile Cnt 14.2 10*3/uL High 2.2-8.2 [facility] Comment on above: Performed By: #### H EMDF, PT, BMP3M, PHOS3, MG3, CK3 #### [place] [address] [place], [place] #### VD25H #### [facility] [address] [place] [address] Atypical Lymphocytes 2 % Abnormal <1 [facility] Comment on above: Performed By: #### H EMDF, PT, BMP3M, PHOS3, MG3, CK3 #### [address] #### VD25H #### [facility] [address] [place] [address] Bands 5 % High 0-3 [facility] Comment on above: Performed By: #### H EMDF, PT, BMP3M, PHOS3, MG3, CK3 #### [address] #### [id number] #### [place] [address] [place] [address] Eosinophils #/vol (Bld) 0.6 10*3/uL High 0.0-0.5 [facility] Comment on above: Performed By: #### H EMDF, PT, BMP3M, PHOS3, MG3, CK3 #### [facility] [address] [place], [place] #### [id number] #### [facility] [address] [place] [address] Eosinophils/100 WBC (Bld) 3 % Normal 1-6 [facility] Comment on above: Performed By: #### H EMDF, PT, BMP3M, PHOS3, MG3, CK3 #### [facility] [address], [place] #### VD25H #### [facility] [address] [place] [address] Lymphocytes #/vol (Bld) 2.1 10*3/uL Normal 1.1-4.5 [facility] Comment on above: Performed By: #### H EMDF, PT, BMP3M, PHOS3, MG3, CK3 #### [place] [address] [place], [place] #### VD25H #### [facility] [address] [place] [address] Lymphocytes/100 WBC (Bld) 11 % Low 20-40 [facility] Comment on above: Performed By: #### H EMDF, PT, BMP3M, PHOS3, MG3, CK3 #### [place] [address] [place], [place] #### VD25H #### [facility] [address] [place] [address] Monocytes #/vol (Bld) 1.5 10*3/uL High 0.2-1.1 [facility] Comment on above: Performed By: #### H EMDF, PT, BMP3M, PHOS3, MG3, CK3 #### [place] [address] [place], [place] #### VD25H #### [facility] [address] [place] [address] Monocytes/100 WBC (Bld) 8 % Normal 2-10 [facility] Comment on above: Performed By: #### H EMDF, PT, BMP3M, PHOS3, MG3, CK3 #### [facility] [address] [place], [place] #### VD25H #### [facility] [address] [place] [address] NRBC 1 /100{WBCs} High -1-0 [facility] Comment on above: Result Comment: Newb orn (<60 days) 1-10 Adult <1 Performed By: #### H EMDF, PT, BMP3M, PHOS3, MG3, CK3 #### [place] [address] [place], [place] #### VD25H #### [facility] [address] [place] [address] Seg Neutrophils 71 % Normal 40-80 [facility] Comment on above: Performed By: #### H EMDF, PT, BMP3M, PHOS3, MG3, CK3 #### [address] [place], [place] #### VD25H #### [facility] [address] [place] [address] Abs Baso Cnt 0.0 10*3/uL Normal 0.0-0.2 [facility] Comment on above: Performed By: #### H EMDF, PT, BMP3M, PHOS3, MG3, CK3 #### [address] #### VD25H #### [facility] [address] [place] [address] Basophils/100 WBC (Bld) 0 % Normal 0-2 [facility] Comment on above: Performed By: #### H EMDF, PT, BMP3M, PHOS3, MG3, CK3 #### [address] [place], [place] #### VD25H #### [facility] [address] [place] [address] Cells counted 100 Normal [facility] Comment on above: Performed By: #### H EMDF, PT, BMP3M, PHOS3, MG3, CK3 #### [facility] [address] [place], [place] #### VD25H #### [facility] [address] [place] [address] Phosphoruson 07-27-2018 Phosphate mass conc 3.0 mg/dL Normal 2.5-4.5 [facility] Comment on above: Performed By: #### H EMDF, PT, BMP3M, PHOS3, MG3, CK3 #### [facility] [address] [place], [place] #### VD25H #### [facility] [address] [place] [address] VL Venous Duplex US Lower Ex t Bilateralon 07-27-2018 VL Venous Duplex US Lower Ext Bilateral Patient Name: KATHYA HOOPER Ultrasound Exam Date/Time 07/27/2018 10:56:18 EDT Exam VL Venous Duplex US Lower Ext Bilateral Ordering Physician ETIENNE MARTÍNEZ JULIE Accession Number [id number] CPT4 Codes 39570 () Reason For Exam edema Report [facility] --- Lower Extremity Venous Duplex Report Patient Name: Kathya Hooper : 1955 Study Date: 07/27/2018 [place] (63yrs) Age: 63 Account: [id number] Gender: M Loc: T209 BP: Ordering: Yesenia Martínez Technologist: Ordering Physician: Yesenia Martínez Coverstitch Elastic Attacher: Mary Man Lissette Interpreting Physician: Ricardo Hall MD --- Location: [facility] --- INDICATIONS: Bilateral leg edema. --- [...] performed. The images were obtained using a [employer] E9 vascular ultrasound machine. The study was [...] --+ Electronically signed by: Ricardo Hall MD [id number] Final Dictated: 07/27/2018 12:55 pm Dictating Physician: RICARDO HALL Signed Date and Time: 07/27/2018 12:55 pm Signed by: RICARDO HALL Normal [facility] Basic Metabolic Panelon 06-30 Calcium mass conc 7.9 mg/dL Low 8.4-10.4 [facility] Comment on above: Performed By: #### H EMDF, PT, BMP3M, PHOS3, MG3, CK3 #### [address] #### VD25H #### [facility] [address] [place] [address] Anion gap molar conc 9 Normal [facility] Comment on above: Performed By: #### H EMDF, PT, BMP3M, PHOS3, MG3, CK3 #### [facility] [address] #### VD25H #### [facility] [address] [place] [address] CO2 molar conc 24 mmol/L Normal 22-30 [facility] Comment on above: Performed By: #### H EMDF, PT, BMP3M, PHOS3, MG3, CK3 #### [facility] [address], [place] #### VD25H #### [facility] [address] [place] [address] Creatinine mass conc 0.54 mg/dL Normal 0.52-1.25 [facility] Comment on above: Performed By: #### H EMDF, PT, BMP3M, PHOS3, MG3, CK3 #### [facility] [address], [place] #### VD25H #### [facility] [address] [place] [address] GFR/1.73 sq M predicted among blacks MDRD vol rate/area (S/P/Bld) mL/min/{1.73_m2} Normal >60 [facility] Comment on above: Performed By: #### H EMDF, PT, BMP3M, PHOS3, MG3, CK3 #### [address] #### VD25H #### [facility] [address] [place] [address] GFR/1.73 sq M predicted among non-blacks MDRD vol rate/area (S/P/Bld) mL/min/{1.73_m2} Normal >60 [facility] Comment on above: Result Comment: Sour ce- MDRD equation with creatinine calibration to IDMS(NKDEP) eGFR not recommended for drug dose adjustment Performed By: #### H EMDF, PT, BMP3M, PHOS3, MG3, CK3 #### [address] #### VD25H #### [facility] [address] [place] [address] Glucose mass conc 166 mg/dL High 70-100 [facility] Comment on above: Performed By: #### H EMDF, PT, BMP3M, PHOS3, MG3, CK3 #### [address] #### VD25H #### [facility] [address] [place] [address] Urea nitrogen mass conc 21 mg/dL High 7-20 [facility] Comment on above: Performed By: #### H EMDF, PT, BMP3M, PHOS3, MG3, CK3 #### [facility] [address] [place] [address] #### VD25H #### [facility] [address] [place] [address] Chloride molar conc 107 mmol/L Normal 98-107 [facility] Comment on above: Performed By: #### H EMDF, PT, BMP3M, PHOS3, MG3, CK3 #### [place] [address] [place] [address] #### VD25H #### [facility] [address] [place] [address] Potassium molar conc 3.7 mmol/L Normal 3.5-5.1 [facility] Comment on above: Performed By: #### H EMDF, PT, BMP3M, PHOS3, MG3, CK3 #### [place] [address] [place] [address] #### VD25H #### [facility] [address] [place] [address] Sodium molar conc 140 mmol/L Normal 135-145 [facility] Comment on above: Performed By: #### H EMDF, PT, BMP3M, PHOS3, MG3, CK3 #### [place] [address] [place] [address] #### VD25H #### [facility] [address] [place] [address] CR Chest Portableon 07-27-19 19 CR Chest Portable Patient Name: KATHYA HOOPER Diagnostic Radiology Exam Date/Time 07/26/2018 06:06:25 EDT Exam CR Chest Portable Ordering Physician MARIA EUGENIA PEREZ Accession Number [id number] CPT4 Codes 44528 () Reason For Exam ETT placement Report [...] Dictated: 07/26/2018 9:15 am Dictating Physician: MD OPZO JEFFREY Signed Date and Time: 07/26/2018 9:16 am Signed by: MD POZO JEFFREY Transcribed Date and Time: 07/26/2018 9:15 [facility] 07-26-2018 Glucose mass conc 160 mg/dL High 70-100 [facility] Comment on above: Result Comment: Test performed by glucose meter. Results may be 10%-15% lower than serum/plasma values. (CLIA ID [id number]) Performed By: #### H EMDF, PT, BMP3M, PHOS3, MG3, CK3 #### [facility] [address] [place] [address] #### VD25H #### [facility] [address] [place] [address] Glucose mass conc 166 mg/dL High 70-100 [facility] Comment on above: Result Comment: Test performed by glucose meter. Results may be 10%-15% lower than serum/plasma values. (CLIA ID [id number]) Performed By: #### H EMDF, PT, BMP3M, PHOS3, MG3, CK3 #### [facility] [address] [place] [address] #### VD25H #### [facility] [address] [place] [address] Glucose mass conc 183 mg/dL High 70-100 [facility] Comment on above: Result Comment: Test performed by glucose meter. Results may be 10%-15% lower than serum/plasma values. (CLIA ID [id number]) Performed By: #### H EMDF, PT, BMP3M, PHOS3, MG3, CK3 #### [place] [address] [place], [place] #### VD25H #### [facility] [address] [place] [address] Glucose mass conc 151 mg/dL High 70-100 [facility] Comment on above: Result Comment: Test performed by glucose meter. Results may be 10%-15% lower than serum/plasma values. (CLIA ID [id number]) Performed By: #### H EMDF, PT, BMP3M, PHOS3, MG3, CK3 #### [address] #### VD25H #### [place] [address] [place] [address] Hemogram w/ Autodiffon 07-26 Erythrocyte distribution width Ratio (RBC) 13.7 % Normal 11.5-14.5 [facility] Comment on above: Performed By: #### H EMDF, PT, BMP3M, PHOS3, MG3, CK3 #### [address] #### VD25H #### [facility] [address] [place] [address] Hematocrit Volume Fraction (Bld) 31.1 % Low 40.0-52.0 [facility] Comment on above: Performed By: #### H EMDF, PT, BMP3M, PHOS3, MG3, CK3 #### [address] #### VD25H #### [facility] [address] [place] [address] Hemoglobin mass conc (Bld) 10.6 g/dL Low 13.0-18.0 [facility] Comment on above: Performed By: #### H EMDF, PT, BMP3M, PHOS3, MG3, CK3 #### [address] [place], [place] #### VD25H #### [facility] [address] [place] [address] MCH Entitic mass (RBC) 29.2 pg Normal 26.0-34.0 [facility] Comment on above: Performed By: #### H EMDF, PT, BMP3M, PHOS3, MG3, CK3 #### [address] [place], [place] #### VD25H #### [facility] [address] [place] [address] MCHC mass conc (RBC) 34.0 % Normal 32.0-36.0 [facility] Comment on above: Performed By: #### H EMDF, PT, BMP3M, PHOS3, MG3, CK3 #### [address] #### VD25H #### [facility] [address] [place] [address] MCV Entitic volume (RBC) 86.1 fL Normal 80.0-98.0 [facility] Comment on above: Performed By: #### H EMDF, PT, BMP3M, PHOS3, MG3, CK3 #### [address] #### VD25H #### [facility] [address] [place] [address] Platelet mean volume Entitic volume (Bld) 8.3 fL Normal 7.4-10.4 [facility] Comment on above: Performed By: #### H EMDF, PT, BMP3M, PHOS3, MG3, CK3 #### [address] #### VD25H #### [facility] [address] [place] [address] Platelets #/vol (Bld) 364 10*3/uL Normal 140-440 [facility] Comment on above: Performed By: #### H EMDF, PT, BMP3M, PHOS3, MG3, CK3 #### [facility] [address], [place] #### VD25H #### [facility] [address] [place] [address] RBC #/vol (Bld) 3.62 10*6/uL Low 4.40-5.90 [facility] Comment on above: Performed By: #### H EMDF, PT, BMP3M, PHOS3, MG3, CK3 #### [address] [place], [place] #### VD25H #### [facility] [address] [place] [address] WBC #/vol (Bld) 15.2 10*3/uL High 3.6-10.7 [facility] Comment on above: Performed By: #### H EMDF, PT, BMP3M, PHOS3, MG3, CK3 #### [address] #### VD25H #### [place] [address] [place] [address] Magnesiumon 07-26-2018 Magnesium mass conc 2.0 mg/dL Normal 1.6-2.3 [facility] Comment on above: Performed By: #### H EMDF, PT, BMP3M, PHOS3, MG3, CK3 #### [address] #### VD25H #### [facility] [address] [place] [address] Manual Diffon 07-26-2018 Abs Neutrophile Cnt 12.8 10*3/uL High 2.2-8.2 [facility] Comment on above: Performed By: #### H EMDF, PT, BMP3M, PHOS3, MG3, CK3 #### [address] #### VD25H #### [place] [address] [place] [address] Lymphocytes #/vol (Bld) 1.4 10*3/uL Normal 1.1-4.5 [facility] Comment on above: Performed By: #### H EMDF, PT, BMP3M, PHOS3, MG3, CK3 #### [facility] [address], [place] #### VD25H #### [facility] [address] [place] [address] Lymphocytes/100 WBC (Bld) 9 % Low 20-40 [facility] Comment on above: Performed By: #### H EMDF, PT, BMP3M, PHOS3, MG3, CK3 #### [place] [address] [place], [place] #### VD25H #### [facility] [address] [place] [address] Monocytes #/vol (Bld) 1.1 10*3/uL Normal 0.2-1.1 [facility] Comment on above: Performed By: #### H EMDF, PT, BMP3M, PHOS3, MG3, CK3 #### [place] [address] [place] #### VD25H #### [facility] [address] [place] [address] Monocytes/100 WBC (Bld) 7 % Normal 2-10 [facility] Comment on above: Performed By: #### H EMDF, PT, BMP3M, PHOS3, MG3, CK3 #### [facility] [address] [place], [place] #### VD25H #### [facility] [address] [place] [address] RBC morphology finding Nom (Bld) Normal Normal [facility] Comment on above: Performed By: #### H EMDF, PT, BMP3M, PHOS3, MG3, CK3 #### [address] [place], [place] #### VD25H #### [facility] [address] [place] [address] Seg Neutrophils 84 % High 40-80 [facility] Comment on above: Performed By: #### H EMDF, PT, BMP3M, PHOS3, MG3, CK3 #### [place] [address] [place], [place] #### VD25H #### [facility] [address] [place] [address] Abs Baso Cnt 0.0 10*3/uL Normal 0.0-0.2 [facility] Comment on above: Performed By: #### H EMDF, PT, BMP3M, PHOS3, MG3, CK3 #### [address] #### VD25H #### [facility] [address] [place] [address] Bands 0 % Normal 0-3 [facility] Comment on above: Performed By: #### H EMDF, PT, BMP3M, PHOS3, MG3, CK3 #### [address] [address] [place], [place] #### VD25H #### [facility] [address] [place] [address] Basophils/100 WBC (Bld) 0 % Normal 0-2 [facility] Comment on above: Performed By: #### H EMDF, PT, BMP3M, PHOS3, MG3, CK3 #### [address] #### VD25H #### [facility] [address] [place] [address] Cells counted 100 Normal [facility] Comment on above: Performed By: #### H EMDF, PT, BMP3M, PHOS3, MG3, CK3 #### [address] #### VD25H #### [facility] [address] [place] [address] Eosinophils #/vol (Bld) 0.0 10*3/uL Normal 0.0-0.5 [facility] Comment on above: Performed By: #### H EMDF, PT, BMP3M, PHOS3, MG3, CK3 #### [address] #### VD25H #### [facility] [address] [place] [address] Eosinophils/100 WBC (Bld) 0 % Low 1-6 [facility] Comment on above: Performed By: #### H EMDF, PT, BMP3M, PHOS3, MG3, CK3 #### [address] #### VD25H #### [facility] [address] [place] [address] Phosphoruson 07-26-2018 Phosphate mass conc 3.1 mg/dL Normal 2.5-4.5 [facility] Comment on above: Performed By: #### H EMDF, PT, BMP3M, PHOS3, MG3, CK3 #### [address] #### VD25H #### [facility] [address] [place] [address] Vancomycin Troughon 07-27-19 19 Vancomycin Trough 8.9 ug/mL Low 15.0-20.0 [facility] Comment on above: Result Comment: . Performed By: #### H EMDF, PT, BMP3M, PHOS3, MG3, CK3 #### [address] #### VD25H #### [facility] [address] [place] [address] Arterial Blood Gaseson 07-25 CO2 molar conc 22.0 mmol/L Low 23.0-27.0 [facility] Comment on above: Performed By: #### H EMDF, PT, BMP3M, PHOS3, MG3, CK3 #### [address] #### VD25H #### [facility] [address] [place] [address] HCO3 molar conc (Bld) 21.1 mmol/L Normal 21.0-25.0 [facility] Comment on above: Performed By: #### H EMDF, PT, BMP3M, PHOS3, MG3, CK3 #### [facility] [address] [place] #### VD25H #### [facility] [address] [place] [address] Hemoglobin mass conc (Bld) 10.1 g/dL Normal ScreenOnly [facility] Comment on above: Performed By: #### H EMDF, PT, BMP3M, PHOS3, MG3, CK3 #### [address] #### VD25H #### [facility] [address] [place] [address] Oxygen ppres (Bld) 88.3 mm[Hg] Normal 80.0-100.0 [facility] Comment on above: Performed By: #### H EMDF, PT, BMP3M, PHOS3, MG3, CK3 #### [address] #### VD25H #### [facility] [address] [place] [address] Oxygen saturation in Blood 96.8 % Normal 95.0-100.0 [facility] Comment on above: Performed By: #### H EMDF, PT, BMP3M, PHOS3, MG3, CK3 #### [address] #### VD25H #### [facility] [address] [place] [address] pCO2 29.9 mm[Hg] Low 35.0-45.0 [facility] Comment on above: Performed By: #### H EMDF, PT, BMP3M, PHOS3, MG3, CK3 #### [address] #### VD25H #### [facility] [address] [place] [address] pH (Bld) 7.467 High 7.350-7.450 [facility] Comment on above: Performed By: #### H EMDF, PT, BMP3M, PHOS3, MG3, CK3 #### [place] [address] [place] #### VD25H #### [facility] [address] [place] [address] Std Base Excess -1.9 mmol/L Normal -3.0-3.0 [facility] Comment on above: Performed By: #### H EMDF, PT, BMP3M, PHOS3, MG3, CK3 #### [address] [place] [address] [place], [place] #### VD25H #### [facility] [address] [place] [address] FIO2 .30 Normal [facility] Comment on above: Performed By: #### H EMDF, PT, BMP3M, PHOS3, MG3, CK3 #### [place] [address] [place] #### VD25H #### [facility] [address] [place] [address] Basic Metabolic Panelon 03-2 Calcium mass conc 8.1 mg/dL Low 8.4-10.4 [facility] Comment on above: Performed By: #### H EMDF, PT, BMP3M, PHOS3, MG3, CK3 #### [address] [place] [address] [place], [place] #### VD25H #### [facility] [address] [place] [address] Anion gap molar conc 8 Normal [facility] Comment on above: Performed By: #### H EMDF, PT, BMP3M, PHOS3, MG3, CK3 #### [place] [address] [facility], [place] #### VD25H #### [facility] [address] [place] [address] CO2 molar conc 24 mmol/L Normal 22-30 [facility] Comment on above: Performed By: #### H EMDF, PT, BMP3M, PHOS3, MG3, CK3 #### [address] [address] #### VD25H #### [facility] [address] [place] [address] Creatinine mass conc 0.55 mg/dL Normal 0.52-1.25 [facility] Comment on above: Performed By: #### H EMDF, PT, BMP3M, PHOS3, MG3, CK3 #### [address] [address] #### VD25H #### [facility] [address] [place] [address] GFR/1.73 sq M predicted among blacks MDRD vol rate/area (S/P/Bld) mL/min/{1.73_m2} Normal >60 [facility] Comment on above: Performed By: #### H EMDF, PT, BMP3M, PHOS3, MG3, CK3 #### [address] [address] #### VD25H #### [facility] [address] [place] [address] GFR/1.73 sq M predicted among non-blacks MDRD vol rate/area (S/P/Bld) mL/min/{1.73_m2} Normal >60 [facility] Comment on above: Result Comment: Sour ce- MDRD equation with creatinine calibration to IDMS(NKDEP) eGFR not recommended for drug dose adjustment Performed By: #### H EMDF, PT, BMP3M, PHOS3, MG3, CK3 #### [address] [address] #### VD25H #### [facility] [address] [place] [address] Glucose mass conc 184 mg/dL High 70-100 [facility] Comment on above: Performed By: #### H EMDF, PT, BMP3M, PHOS3, MG3, CK3 #### [address] #### VD25H #### [facility] [address] [place] [address] Urea nitrogen mass conc 20 mg/dL Normal 7-20 [facility] Comment on above: Performed By: #### H EMDF, PT, BMP3M, PHOS3, MG3, CK3 #### [place] [address] [facility], [place] #### VD25H #### [facility] [address] [place] [address] Chloride molar conc 109 mmol/L High 98-107 [facility] Comment on above: Performed By: #### H EMDF, PT, BMP3M, PHOS3, MG3, CK3 #### [place] [address] [facility] #### VD25H #### [facility] [address] [place] [address] Potassium molar conc 4.0 mmol/L Normal 3.5-5.1 [facility] Comment on above: Performed By: #### H EMDF, PT, BMP3M, PHOS3, MG3, CK3 #### [place] [address] [facility], [place] #### VD25H #### [facility] [address] [place] [address] Sodium molar conc 141 mmol/L Normal 135-145 [facility] Comment on above: Performed By: #### H EMDF, PT, BMP3M, PHOS3, MG3, CK3 #### [place] [address] [facility], [place] #### VD25H #### [facility] [address] [place] [address] CR Chest Portableon 07-26-19 19 CR Chest Portable Patient Name: KATHYA HOOPER Diagnostic Radiology Exam Date/Time 07/25/2018 06:39:42 EDT Exam CR Chest Portable Ordering Physician MARIA EUGENIA PEREZ Accession Number [id number] CPT4 Codes 33666 () Reason For Exam ETT placement Report [...] EMDF, PT, BMP3M, PHOS3, MG3, CK3 #### [facility] [address] [place] [address] #### VD25H #### [facility] [address] [place] [address] Glucose,Bedsideon 07-25-2018 Glucose mass conc 140 mg/dL High 70-100 [facility] Comment on above: Result Comment: Test performed by glucose meter. Results may be 10%-15% lower than serum/plasma values. (CLIA ID [id number]) Performed By: #### H EMDF, PT, BMP3M, PHOS3, MG3, CK3 #### [facility] [address] [place] [address] #### VD25H #### [facility] [address] [place] [address] Glucose mass conc 158 mg/dL High 70-100 [facility] Comment on above: Result Comment: Test performed by glucose meter. Results may be 10%-15% lower than serum/plasma values. (CLIA ID [id number]) Performed By: #### H EMDF, PT, BMP3M, PHOS3, MG3, CK3 #### [facility] [address] [place] [address] #### VD25H #### [facility] [address] [place] [address] Glucose mass conc 172 mg/dL High 70-100 [facility] Comment on above: Result Comment: Test performed by glucose meter. Results may be 10%-15% lower than serum/plasma values. (CLIA ID [id number]) Performed By: #### H EMDF, PT, BMP3M, PHOS3, MG3, CK3 #### [facility] [address] #### VD25H #### [facility] [address] [place] [address] Glucose mass conc 169 mg/dL High 70-100 [facility] Comment on above: Result Comment: Test performed by glucose meter. Results may be 10%-15% lower than serum/plasma values. (CLIA ID [id number]) Performed By: #### H EMDF, PT, BMP3M, PHOS3, MG3, CK3 #### [facility] [address] #### VD25H #### [facility] [address] [place] [address] Glucose mass conc 165 mg/dL High 70-100 [facility] Comment on above: Result Comment: Test performed by glucose meter. Results may be 10%-15% lower than serum/plasma values. (CLIA ID [id number]) Performed By: #### H EMDF, PT, BMP3M, PHOS3, MG3, CK3 #### [facility] [address] #### VD25H #### [facility] [address] [place] [address] Hemogram w/ Autodiffon 07-25 Erythrocyte distribution width Ratio (RBC) 13.6 % Normal 11.5-14.5 [facility] Comment on above: Performed By: #### H EMDF, PT, BMP3M, PHOS3, MG3, CK3 #### [facility] [address] #### VD25H #### [facility] [address] [place] [address] Hematocrit Volume Fraction (Bld) 31.3 % Low 40.0-52.0 [facility] Comment on above: Performed By: #### H EMDF, PT, BMP3M, PHOS3, MG3, CK3 #### [facility] [address] [place] [address], [place] #### [id number] #### [facility] [address] [place] [address] Hemoglobin mass conc (Bld) 10.6 g/dL Low 13.0-18.0 [facility] Comment on above: Performed By: #### H EMDF, PT, BMP3M, PHOS3, MG3, CK3 #### [address] #### [id number] #### [facility] [address] [place] [place] [address] MCH Entitic mass (RBC) 29.4 pg Normal 26.0-34.0 [facility] Comment on above: Performed By: #### H EMDF, PT, BMP3M, PHOS3, MG3, CK3 #### [address] #### VD25H #### [place] [address] [place] [address] MCHC mass conc (RBC) 33.8 % Normal 32.0-36.0 [facility] Comment on above: Performed By: #### H EMDF, PT, BMP3M, PHOS3, MG3, CK3 #### [address] #### VD25H #### [place] [address] [place] [address] MCV Entitic volume (RBC) 86.9 fL Normal 80.0-98.0 [facility] Comment on above: Performed By: #### H EMDF, PT, BMP3M, PHOS3, MG3, CK3 #### [address] #### VD25H #### [place] [address] [place] [address] Platelet mean volume Entitic volume (Bld) 8.3 fL Normal 7.4-10.4 [facility] Comment on above: Performed By: #### H EMDF, PT, BMP3M, PHOS3, MG3, CK3 #### [place] [address] [place], [place] #### VD25H #### [facility] [address] [place] [address] Platelets #/vol (Bld) 360 10*3/uL Normal 140-440 [facility] Comment on above: Performed By: #### H EMDF, PT, BMP3M, PHOS3, MG3, CK3 #### [place] [address] [place] #### VD25H #### [place] [address] [place] [address] RBC #/vol (Bld) 3.61 10*6/uL Low 4.40-5.90 [facility] Comment on above: Performed By: #### H EMDF, PT, BMP3M, PHOS3, MG3, CK3 #### [place] [address] [place] #### VD25H #### [facility] [address] [place] [address] WBC #/vol (Bld) 14.7 10*3/uL High 3.6-10.7 [facility] Comment on above: Performed By: #### H EMDF, PT, BMP3M, PHOS3, MG3, CK3 #### [address] #### VD25H #### [place] [address] [place] [address] Magnesiumon 07-25-2018 Magnesium mass conc 2.1 mg/dL Normal 1.6-2.3 [facility] Comment on above: Performed By: #### H EMDF, PT, BMP3M, PHOS3, MG3, CK3 #### [address] [place], [place] #### VD25H #### [place] [address] [place] [address] Manual Diffon 07-25-2018 Abs Baso Cnt 0.1 10*3/uL Normal 0.0-0.2 [facility] Comment on above: Performed By: #### H EMDF, PT, BMP3M, PHOS3, MG3, CK3 #### [address] #### VD25H #### [facility] [address] [place] [address] Abs Neutrophile Cnt 12.9 10*3/uL High 2.2-8.2 [facility] Comment on above: Performed By: #### H EMDF, PT, BMP3M, PHOS3, MG3, CK3 #### [address] #### VD25H #### [facility] [address] [place] [address] Anisocytosis Ql (Bld) Slight Normal [facility] Comment on above: Performed By: #### H EMDF, PT, BMP3M, PHOS3, MG3, CK3 #### [address] #### VD25H #### [facility] [address] [place] [address] Bands 4 % High 0-3 [facility] Comment on above: Performed By: #### H EMDF, PT, BMP3M, PHOS3, MG3, CK3 #### [address] #### VD25H #### [facility] [address] [place] [address] Basophils/100 WBC (Bld) 1 % Normal 0-2 [facility] Comment on above: Performed By: #### H EMDF, PT, BMP3M, PHOS3, MG3, CK3 #### [address] #### VD25H #### [facility] [address] [place] [address] Eosinophils #/vol (Bld) 0.6 10*3/uL High 0.0-0.5 [facility] Comment on above: Performed By: #### H EMDF, PT, BMP3M, PHOS3, MG3, CK3 #### [place] [address] [place] #### VD25H #### [facility] [address] [place] [address] Eosinophils/100 WBC (Bld) 4 % Normal 1-6 [facility] Comment on above: Performed By: #### H EMDF, PT, BMP3M, PHOS3, MG3, CK3 #### [place] [address] [place] #### VD25H #### [facility] [address] [place] [address] Lymphocytes #/vol (Bld) 0.1 10*3/uL Low 1.1-4.5 [facility] Comment on above: Performed By: #### H EMDF, PT, BMP3M, PHOS3, MG3, CK3 #### [place] [address] [place] #### VD25H #### [facility] [address] [place] [address] Lymphocytes/100 WBC (Bld) 1 % Low 20-40 [facility] Comment on above: Performed By: #### H EMDF, PT, BMP3M, PHOS3, MG3, CK3 #### [address] #### VD25H #### [facility] [address] [place] [address] Macrocytosis Slight Normal [facility] Comment on above: Performed By: #### H EMDF, PT, BMP3M, PHOS3, MG3, CK3 #### [address] #### VD25H #### [facility] [address] [place] [address] Metamyelocytes 2 % Abnormal <1 [facility] Comment on above: Performed By: #### H EMDF, PT, BMP3M, PHOS3, MG3, CK3 #### [address] [place], [place] #### VD25H #### [facility] [address] [place] [address] Microcytosis Slight Normal [facility] Comment on above: Performed By: #### H EMDF, PT, BMP3M, PHOS3, MG3, CK3 #### [place] [address] [place] #### VD25H #### [facility] [address] [place] [address] Monocytes #/vol (Bld) 0.6 10*3/uL Normal 0.2-1.1 [facility] Comment on above: Performed By: #### H EMDF, PT, BMP3M, PHOS3, MG3, CK3 #### [address] #### VD25H #### [place] [address] [place] [address] Monocytes/100 WBC (Bld) 4 % Normal 2-10 [facility] Comment on above: Performed By: #### H EMDF, PT, BMP3M, PHOS3, MG3, CK3 #### [address] [place] #### VD25H #### [place] [address] [place] [address] RBC morphology finding Nom (Bld) ABNORMAL Normal [facility] Comment on above: Performed By: #### H EMDF, PT, BMP3M, PHOS3, MG3, CK3 #### [address] [place] #### VD25H #### [facility] [address] [place] [address] Seg Neutrophils 84 % High 40-80 [facility] Comment on above: Performed By: #### H EMDF, PT, BMP3M, PHOS3, MG3, CK3 #### [place] [address] [place] #### VD25H #### [facility] [address] [place] [address] Cells counted 100 Normal [facility] Comment on above: Performed By: #### H EMDF, PT, BMP3M, PHOS3, MG3, CK3 #### [place] [address] [place] #### VD25H #### [facility] [address] [place] [address] Phosphoruson 07-25-2018 Phosphate mass conc 2.7 mg/dL Normal 2.5-4.5 [facility] Comment on above: Performed By: #### H EMDF, PT, BMP3M, PHOS3, MG3, CK3 #### [place] [address] [place] #### VD25H #### [facility] [address] [place] [address] Triglycerideon 07-25-2018 Triglyceride mass conc 82 mg/dL Normal <150 [facility] Comment on above: Performed By: #### H EMDF, PT, BMP3M, PHOS3, MG3, CK3 #### [address] #### VD25H #### [facility] [address] [place] [address] Basic Metabolic Panelon 06-30 Calcium mass conc 8.0 mg/dL Low 8.4-10.4 [facility] Comment on above: Performed By: #### H EMDF, PT, BMP3M, PHOS3, MG3, CK3 #### [place] [address] [facility] #### VD25H #### [facility] [address] [place] [address] Anion gap molar conc 9 Normal [facility] Comment on above: Performed By: #### H EMDF, PT, BMP3M, PHOS3, MG3, CK3 #### [place] [address] [place] #### VD25 #### [facility] [address] [place] [address] CO2 molar conc 23 mmol/L Normal 22-30 [facility] Comment on above: Performed By: #### H EMDF, PT, BMP3M, PHOS3, MG3, CK3 #### [address] #### VD25H #### [facility] [address] [place] [address] Creatinine mass conc 0.71 mg/dL Normal 0.52-1.25 [facility] Comment on above: Performed By: #### H EMDF, PT, BMP3M, PHOS3, MG3, CK3 #### [address] #### VD25H #### [facility] [address] [place] [address] GFR/1.73 sq M predicted among blacks MDRD vol rate/area (S/P/Bld) mL/min/{1.73_m2} Normal >60 [facility] Comment on above: Performed By: #### H EMDF, PT, BMP3M, PHOS3, MG3, CK3 #### [address] #### VD25H #### [facility] [address] [place] [address] GFR/1.73 sq M predicted among non-blacks MDRD vol rate/area (S/P/Bld) mL/min/{1.73_m2} Normal >60 [facility] Comment on above: Result Comment: Sour ce- MDRD equation with creatinine calibration to IDMS(NKDEP) eGFR not recommended for drug dose adjustment Performed By: #### H EMDF, PT, BMP3M, PHOS3, MG3, CK3 #### [address] #### VD25H #### [facility] [address] [place] [address] Glucose mass conc 160 mg/dL High 70-100 [facility] Comment on above: Performed By: #### H EMDF, PT, BMP3M, PHOS3, MG3, CK3 #### [place] [address] [place] #### VD25H #### [facility] [address] [place] [address] Urea nitrogen mass conc 28 mg/dL High 7-20 S [facility] Comment on above: Performed By: #### H EMDF, PT, BMP3M, PHOS3, MG3, CK3 #### [place] [address] [place] #### VD25H #### [facility] [address] [place] [address] Chloride molar conc 109 mmol/L High 98-107 [facility] Comment on above: Performed By: #### H EMDF, PT, BMP3M, PHOS3, MG3, CK3 #### [place] [address] [facility] #### VD25H #### [facility] [address] [place] [address] Potassium molar conc 3.7 mmol/L Normal 3.5-5.1 [facility] Comment on above: Performed By: #### H EMDF, PT, BMP3M, PHOS3, MG3, CK3 #### [place] [address] [place] #### VD25H #### [facility] [address] [place] [address] Sodium molar conc 141 mmol/L Normal 135-145 [facility] Comment on above: Performed By: #### H EMDF, PT, BMP3M, PHOS3, MG3, CK3 #### [place] [address] [facility] #### VD25H #### [facility] [address] [place] [address] CR Chest Portableon 07-25-19 19 CR Chest Portable Patient Name: KATHYA HOOPER Diagnostic Radiology Exam Date/Time 07/24/2018 13:12:47 EDT Exam CR Chest Portable Ordering Physician DO WOLFF KATHRYN C Accession Number [id number] CPT4 Codes 87211 () Reason For Exam line placement Report [...] Ordering Physician MARIA EUGENIA PEREZ Accession Number [id number] CPT4 Codes 31407 () Reason For Exam ETT placement Report [...] <= 1 S Levofloxacin(CHRISTI) <= 0.12 S Meropenem(HCRISTI) <= 0.25 S Pip/Tazobactam(CHRISTI) <= 4 S Tetracycline(CHRISTI) <= 1 S Trimeth/Sulfa(CHRISTI) <= 20 S Normal [facility] Comment on above: Order Comment: Speci men Source Comment:Endotracheal Performed By: #### H EMDF, PT, BMP3M, PHOS3, MG3, CK3 #### [facility] [address] [place] [address] #### VD25H #### [facility] [address] [place] [address] CULTURE URINEon 07-24-2018 CULTURE URINE 1 Organism Klebsiell a pneumoniae >100,000 CFU/ml 2 Organism Escherichia coli >100,000 CFU/ml 1 Organism Antibiotic Result Intrp Amikacin(CHRISTI) <= 2 S Amoxicillin/Clavulani c Acid(CHRITSI) <= 2 S Ampicillin(CHRISTI) R Ampicillin/Sulbactam( CHRISTI) [...] MG3, CK3 #### [facility] [address] [place] #### VD25H #### [facility] [address] [place] [address] Creatinine, Ur Randomon 06-30 Creatinine, Ur Random 49.5 mg/dL Normal No Range [facility] Comment on above: Performed By: #### H EMDF, PT, BMP3M, PHOS3, MG3, CK3 #### [facility] [address] [place], [place] #### VD25H #### [facility] [address] [place] [address] Glucose,Bedsideon 07-24-2018 Glucose mass conc 124 mg/dL High 70-100 [facility] Comment on above: Result Comment: Test performed by glucose meter. Results may be 10%-15% lower than serum/plasma values. (CLIA ID [id number]) Performed By: #### H EMDF, PT, BMP3M, PHOS3, MG3, CK3 #### [facility] [address] [place], [place] #### VD25H #### [facility] [address] [place] [address] Glucose mass conc 152 mg/dL High 70-100 [facility] Comment on above: Result Comment: Test performed by glucose meter. Results may be 10%-15% lower than serum/plasma values. (CLIA ID [id number]) Performed By: #### H EMDF, PT, BMP3M, PHOS3, MG3, CK3 #### [facility] [address] [place] [address] #### VD25H #### [facility] [address] [place] [address] Glucose mass conc 149 mg/dL High 70-100 [facility] Comment on above: Result Comment: Test performed by glucose meter. Results may be 10%-15% lower than serum/plasma values. (CLIA ID [id number]) Performed By: #### H EMDF, PT, BMP3M, PHOS3, MG3, CK3 #### [place] [address] [place], [place] #### VD25H #### [facility] [address] [place] [address] Hemogram w/ Autodiffon 07-24 Erythrocyte distribution width Ratio (RBC) 13.7 % Normal 11.5-14.5 [facility] Comment on above: Performed By: #### H EMDF, PT, BMP3M, PHOS3, MG3, CK3 #### [address] #### VD25H #### [place] [address] [place] [address] Hematocrit Volume Fraction (Bld) 31.4 % Low 40.0-52.0 [facility] Comment on above: Performed By: #### H EMDF, PT, BMP3M, PHOS3, MG3, CK3 #### [address] #### VD25H #### [facility] [address] [place] [address] Hemoglobin mass conc (Bld) 10.7 g/dL Low 13.0-18.0 [facility] Comment on above: Performed By: #### H EMDF, PT, BMP3M, PHOS3, MG3, CK3 #### [address] #### VD25H #### [facility] [address] [place] [address] MCH Entitic mass (RBC) 29.4 pg Normal 26.0-34.0 [facility] Comment on above: Performed By: #### H EMDF, PT, BMP3M, PHOS3, MG3, CK3 #### [address] #### VD25H #### [facility] [address] [place] [address] MCHC mass conc (RBC) 33.9 % Normal 32.0-36.0 [facility] Comment on above: Performed By: #### H EMDF, PT, BMP3M, PHOS3, MG3, CK3 #### [address] [place], [place] #### VD25H #### [facility] [address] [place] [address] MCV Entitic volume (RBC) 86.8 fL Normal 80.0-98.0 [facility] Comment on above: Performed By: #### H EMDF, PT, BMP3M, PHOS3, MG3, CK3 #### [address] #### VD25H #### [facility] [address] [place] [address] Platelet mean volume Entitic volume (Bld) 8.6 fL Normal 7.4-10.4 [facility] Comment on above: Performed By: #### H EMDF, PT, BMP3M, PHOS3, MG3, CK3 #### [address] #### VD25H #### [facility] [address] [place] [address] Platelets #/vol (Bld) 304 10*3/uL Normal 140-440 [facility] Comment on above: Performed By: #### H EMDF, PT, BMP3M, PHOS3, MG3, CK3 #### [address] #### VD25H #### [facility] [address] [place] [address] RBC #/vol (Bld) 3.62 10*6/uL Low 4.40-5.90 [facility] Comment on above: Performed By: #### H EMDF, PT, BMP3M, PHOS3, MG3, CK3 #### [address] [place], [place] #### VD25H #### [facility] [address] [place] [address] WBC #/vol (Bld) 14.0 10*3/uL High 3.6-10.7 [facility] Comment on above: Performed By: #### H EMDF, PT, BMP3M, PHOS3, MG3, CK3 #### [address] [place], [place] #### VD25H #### [facility] [address] [place] [address] Magnesiumon 07-24-2018 Magnesium mass conc 2.2 mg/dL Normal 1.6-2.3 [facility] Comment on above: Performed By: #### H EMDF, PT, BMP3M, PHOS3, MG3, CK3 #### [address] #### VD25H #### [facility] [address] [place] [address] Manual Diffon 07-24-2018 Abs Baso Cnt 0.0 10*3/uL Normal 0.0-0.2 [facility] Comment on above: Performed By: #### H EMDF, PT, BMP3M, PHOS3, MG3, CK3 #### [address] #### VD25H #### [facility] [address] [place] [address] Abs Neutrophile Cnt 12.2 10*3/uL High 2.2-8.2 [facility] Comment on above: Performed By: #### H EMDF, PT, BMP3M, PHOS3, MG3, CK3 #### [address] #### VD25H #### [facility] [address] [place] [address] Eosinophils #/vol (Bld) 0.4 10*3/uL Normal 0.0-0.5 [facility] Comment on above: Performed By: #### H EMDF, PT, BMP3M, PHOS3, MG3, CK3 #### [facility] [address] [place] #### VD25H #### [facility] [address] [place] [address] Eosinophils/100 WBC (Bld) 3 % Normal 1-6 [facility] Comment on above: Performed By: #### H EMDF, PT, BMP3M, PHOS3, MG3, CK3 #### [place] [address] [place], [place] #### VD25H #### [facility] [address] [place] [address] Lymphocytes #/vol (Bld) 1.0 10*3/uL Low 1.1-4.5 [facility] Comment on above: Performed By: #### H EMDF, PT, BMP3M, PHOS3, MG3, CK3 #### [address] #### VD25H #### [facility] [address] [place] [address] Lymphocytes/100 WBC (Bld) 7 % Low 20-40 [facility] Comment on above: Performed By: #### H EMDF, PT, BMP3M, PHOS3, MG3, CK3 #### [facility] [address] [place] #### VD25H #### [facility] [address] [place] [address] Monocytes #/vol (Bld) 0.4 10*3/uL Normal 0.2-1.1 [facility] Comment on above: Performed By: #### H EMDF, PT, BMP3M, PHOS3, MG3, CK3 #### [address] [place] #### VD25H #### [facility] [address] [place] [address] Monocytes/100 WBC (Bld) 3 % Normal 2-10 [facility] Comment on above: Performed By: #### H EMDF, PT, BMP3M, PHOS3, MG3, CK3 #### [facility] [address] [place] #### VD25H #### [facility] [address] [place] [address] RBC morphology finding Nom (Bld) Normal Normal [facility] Comment on above: Performed By: #### H EMDF, PT, BMP3M, PHOS3, MG3, CK3 #### [place] [address] [place] #### VD25H #### [facility] [address] [place] [address] Seg Neutrophils 87 % High 40-80 [facility] Comment on above: Performed By: #### H EMDF, PT, BMP3M, PHOS3, MG3, CK3 #### [place] [address] [place] #### VD25H #### [facility] [address] [place] [address] Bands 0 % Normal 0-3 [facility] Comment on above: Performed By: #### H EMDF, PT, BMP3M, PHOS3, MG3, CK3 #### [place] [address] [place] #### VD25H #### [facility] [address] [place] [address] Basophils/100 WBC (Bld) 0 % Normal 0-2 S [facility] Comment on above: Performed By: #### H EMDF, PT, BMP3M, PHOS3, MG3, CK3 #### [place] [address] [facility] #### VD25H #### [facility] [address] [place] [address] Cells counted 100 Normal [facility] Comment on above: Performed By: #### H EMDF, PT, BMP3M, PHOS3, MG3, CK3 #### [place] [address] [place] #### VD25H #### [facility] [address] [place] [address] Phosphoruson 07-24-2018 Phosphate mass conc 2.7 mg/dL Normal 2.5-4.5 [facility] Comment on above: Performed By: #### H EMDF, PT, BMP3M, PHOS3, MG3, CK3 #### [place] [address] [place] #### VD25H #### [facility] [address] [place] [address] Triglycerideon 07-24-2018 Triglyceride mass conc 78 mg/dL Normal <150 [facility] Comment on above: Performed By: #### H EMDF, PT, BMP3M, PHOS3, MG3, CK3 #### [place] [address] [place] #### VD25H #### [facility] [address] [place] [address] Urea Nitrogen,Ur Randomon Urea nitrogen mass conc 1199 mg/dL Normal No Range S [facility] Comment on above: Performed By: #### H EMDF, PT, BMP3M, PHOS3, MG3, CK3 #### [place] [address] [facility] #### VD25H #### [facility] [address] [place] [address] Add on test from HISon 07-23 Add on test from HIS Accepted Normal [facility] Comment on above: Result Comment: Spec imen available & acceptable for analysis. Performed By: #### H EMDF, PT, BMP3M, PHOS3, MG3, CK3 #### [place] [address] [place] #### VD25H #### [facility] [address] [place] [address] Arterial Blood Gaseson 07-23 CO2 molar conc 23.0 mmol/L Normal 23.0-27.0 [facility] Comment on above: Performed By: #### H EMDF, PT, BMP3M, PHOS3, MG3, CK3 #### [address] #### VD25H #### [facility] [address] [place] [address] HCO3 molar conc (Bld) 22.0 mmol/L Normal 21.0-25.0 [facility] Comment on above: Performed By: #### H EMDF, PT, BMP3M, PHOS3, MG3, CK3 #### [address] #### VD25H #### [facility] [address] [place] [address] Hemoglobin mass conc (Bld) 10.9 g/dL Normal ScreenOnly [facility] Comment on above: Performed By: #### H EMDF, PT, BMP3M, PHOS3, MG3, CK3 #### [address] #### VD25H #### [facility] [address] [place] [address] Oxygen ppres (Bld) 102.4 mm[Hg] High 80.0-100.0 [facility] Comment on above: Performed By: #### H EMDF, PT, BMP3M, PHOS3, MG3, CK3 #### [address] #### VD25H #### [facility] [address] [place] [address] Oxygen saturation in Blood 97.7 % Normal 95.0-100.0 [facility] Comment on above: Performed By: #### H EMDF, PT, BMP3M, PHOS3, MG3, CK3 #### [address] #### VD25H #### [facility] [address] [place] [address] pCO2 34.4 mm[Hg] Low 35.0-45.0 [facility] Comment on above: Performed By: #### H EMDF, PT, BMP3M, PHOS3, MG3, CK3 #### [facility] [address] [place], [place] #### VD25H #### [facility] [address] [place] [address] pH (Bld) 7.423 Normal 7.350-7.450 [facility] Comment on above: Performed By: #### H EMDF, PT, BMP3M, PHOS3, MG3, CK3 #### [place] [address] [place] #### VD25H #### [facility] [address] [place] [address] Std Base Excess -1.9 mmol/L Normal -3.0-3.0 [facility] Comment on above: Performed By: #### H EMDF, PT, BMP3M, PHOS3, MG3, CK3 #### [place] [address] [place] #### VD25H #### [facility] [address] [place] [address] FIO2 .30 Normal [facility] Comment on above: Performed By: #### H EMDF, PT, BMP3M, PHOS3, MG3, CK3 #### [place] [address] [place], [place] #### VD25H #### [facility] [address] [place] [address] Basic Metabolic Panelon 06-30 Anion gap molar conc 12 Normal [facility] Comment on above: Performed By: #### H EMDF, PT, BMP3M, PHOS3, MG3, CK3 #### [place] [address] [place] #### VD25H #### [facility] [address] [place] [address] Calcium mass conc 7.5 mg/dL Low 8.4-10.4 [facility] Comment on above: Performed By: #### H EMDF, PT, BMP3M, PHOS3, MG3, CK3 #### [facility] [address] [place] [address] #### VD25H #### [facility] [address] [place] [address] CO2 molar conc 23 mmol/L Normal 22-30 [facility] Comment on above: Performed By: #### H EMDF, PT, BMP3M, PHOS3, MG3, CK3 #### [place] [address] [place] #### VD25H #### [facility] [address] [place] [address] Glucose mass conc 148 mg/dL High 70-100 [facility] Comment on above: Performed By: #### H EMDF, PT, BMP3M, PHOS3, MG3, CK3 #### [address] #### [id number] #### [facility] [address] [place] [address] Urea nitrogen mass conc 82 mg/dL High 7-20 [facility] Comment on above: Performed By: #### H EMDF, PT, BMP3M, PHOS3, MG3, CK3 #### [facility] [address] [place], [place] #### [id number] #### [facility] [address] [place] [address] Creatinine mass conc 3.01 mg/dL High 0.52-1.25 [facility] Comment on above: Performed By: #### H EMDF, PT, BMP3M, PHOS3, MG3, CK3 #### [address] #### [id number] #### [facility] [address] [place] [address] GFR/1.73 sq M predicted among blacks MDRD vol rate/area (S/P/Bld) 25.8 mL/min/{1.73_m2} Normal >60 [facility] Comment on above: Performed By: #### H EMDF, PT, BMP3M, PHOS3, MG3, CK3 #### [place] [address] [place], [place] #### [id number] #### [facility] [address] [place] [address] GFR/1.73 sq M predicted among non-blacks MDRD vol rate/area (S/P/Bld) 21.3 mL/min/{1.73_m2} Normal >60 [facility] Comment on above: Result Comment: Sour ce- MDRD equation with creatinine calibration to IDMS(NKDEP) eGFR not recommended for drug dose adjustment Performed By: #### H EMDF, PT, BMP3M, PHOS3, MG3, CK3 #### [address] #### VD25H #### [facility] [address] [place] [address] Chloride molar conc 106 mmol/L Normal 98-107 [facility] Comment on above: Performed By: #### H EMDF, PT, BMP3M, PHOS3, MG3, CK3 #### [address] #### VD25H #### [facility] [address] [place] [address] Potassium molar conc 4.2 mmol/L Normal 3.5-5.1 [facility] Comment on above: Performed By: #### H EMDF, PT, BMP3M, PHOS3, MG3, CK3 #### [address] [facility], [place] #### VD25H #### [facility] [address] [place] [address] Sodium molar conc 141 mmol/L Normal 135-145 [facility] Comment on above: Performed By: #### H EMDF, PT, BMP3M, PHOS3, MG3, CK3 #### [address] #### VD25H #### [facility] [address] [place] [address] CR Chest Portableon 07-24-19 19 CR Chest Portable Patient Name: KATHYA HOOPER Diagnostic Radiology Exam Date/Time 07/23/2018 07:06:03 EDT Exam CR Chest Portable Ordering Physician MARIA EUGENIA PEREZ Accession Number [id number] CPT4 Codes 67515 () Reason For Exam ETT placement Report Indication: Shortness of breath. A frontal view of the chest timed 610 is compared to the study dated 07/22/2018. [...] Ur Random 56.8 mg/dL Normal No Range [facility] Comment on above: Performed By: #### H EMDF, PT, BMP3M, PHOS3, MG3, CK3 #### [facility] [address] [place] [address] #### VD25H #### [facility] [address] [place] [address] Glucose,Bedsideon 07-23-2018 Glucose mass conc 116 mg/dL High 70-100 [facility] Comment on above: Result Comment: Test performed by glucose meter. Results may be 10%-15% lower than serum/plasma values. (CLIA ID [id number]) Performed By: #### H EMDF, PT, BMP3M, PHOS3, MG3, CK3 #### [facility] [employer] [address] [place] [address] #### VD25H #### [facility] [facility] [address] [place] [address] Glucose mass conc 139 mg/dL High 70-100 [facility] Comment on above: Result Comment: Test performed by glucose meter. Results may be 10%-15% lower than serum/plasma values. (CLIA ID [id number]) Performed By: #### H EMDF, PT, BMP3M, PHOS3, MG3, CK3 #### [facility] [employer] [address] [place] [address] #### VD25H #### [employer] [facility] [address] [place] [address] Glucose mass conc 140 mg/dL High 70-100 [facility] Comment on above: Result Comment: Test performed by glucose meter. Results may be 10%-15% lower than serum/plasma values. (CLIA ID [id number]) Performed By: #### H EMDF, PT, BMP3M, PHOS3, MG3, CK3 #### [facility] [employer] [address] [place] [address] #### VD25H #### [employer] [facility] [address] [place] [address] Glucose mass conc 140 mg/dL High 70-100 [facility] Comment on above: Result Comment: Test performed by glucose meter. Results may be 10%-15% lower than serum/plasma values. (CLIA ID [id number]) Performed By: #### H EMDF, PT, BMP3M, PHOS3, MG3, CK3 #### [facility] [employer] [address] [place] [address] #### VD25H #### [facility] [employer] [facility] [address] [place] [address] Hemogram w/ Autodiffon 07-23 Abs Baso Cnt 0.0 10*3/uL Normal 0.0-0.2 [facility] Comment on above: Performed By: #### H EMDF, PT, BMP3M, PHOS3, MG3, CK3 #### [place] [address] [place], [place] #### VD25H #### [facility] [address] [place] [address] Abs Neutrophile Cnt 16.2 10*3/uL High 1.8-7.0 [facility] Comment on above: Performed By: #### H EMDF, PT, BMP3M, PHOS3, MG3, CK3 #### [place] [address] [address] [place], [place] #### VD25H #### [facility] [address] [place] [address] Basophils/100 WBC (Bld) 0.3 % Normal 0.0-2.0 [facility] Comment on above: Performed By: #### H EMDF, PT, BMP3M, PHOS3, MG3, CK3 #### [place] [address] [place] #### VD25H #### [facility] [address] [place] [address] Eosinophils #/vol (Bld) 0.2 10*3/uL Normal 0.0-0.5 [facility] Comment on above: Performed By: #### H EMDF, PT, BMP3M, PHOS3, MG3, CK3 #### [address] #### VD25H #### [facility] [address] [place] [address] Eosinophils/100 WBC (Bld) 1.2 % Normal 1.0-6.0 [facility] Comment on above: Performed By: #### H EMDF, PT, BMP3M, PHOS3, MG3, CK3 #### [address] #### VD25H #### [facility] [address] [place] [address] Erythrocyte distribution width Ratio (RBC) 13.9 % Normal 11.5-14.5 [facility] Comment on above: Performed By: #### H EMDF, PT, BMP3M, PHOS3, MG3, CK3 #### [facility] [address], [place] #### VD25H #### [facility] [address] [place] [address] Granulocytes/100 WBC (Bld) 86.8 % High 40.0-80.0 [facility] Comment on above: Performed By: #### H EMDF, PT, BMP3M, PHOS3, MG3, CK3 #### [address] #### VD25H #### [facility] [address] [place] [address] Hematocrit Volume Fraction (Bld) 26.7 % Low 40.0-52.0 [facility] Comment on above: Performed By: #### H EMDF, PT, BMP3M, PHOS3, MG3, CK3 #### [address] #### VD25H #### [facility] [address] [place] [address] Hemoglobin mass conc (Bld) 8.9 g/dL Low 13.0-18.0 [facility] Comment on above: Performed By: #### H EMDF, PT, BMP3M, PHOS3, MG3, CK3 #### [address] #### VD25H #### [facility] [address] [place] [address] Lymphocytes #/vol (Bld) 1.2 10*3/uL Normal 1.0-4.3 [facility] Comment on above: Performed By: #### H EMDF, PT, BMP3M, PHOS3, MG3, CK3 #### [facility] [address], [place] #### VD25H #### [facility] [address] [place] [address] Lymphocytes/100 WBC (Bld) 6.6 % Low 20.0-40.0 [facility] Comment on above: Performed By: #### H EMDF, PT, BMP3M, PHOS3, MG3, CK3 #### [facility] [address] [place] #### VD25H #### [facility] [address] [place] [address] MCH Entitic mass (RBC) 29.5 pg Normal 26.0-34.0 [facility] Comment on above: Performed By: #### H EMDF, PT, BMP3M, PHOS3, MG3, CK3 #### [address] #### VD25H #### [facility] [address] [place] [address] MCHC mass conc (RBC) 33.5 % Normal 32.0-36.0 [facility] Comment on above: Performed By: #### H EMDF, PT, BMP3M, PHOS3, MG3, CK3 #### [address] #### VD25H #### [facility] [address] [place] [address] MCV Entitic volume (RBC) 87.9 fL Normal 80.0-98.0 [facility] Comment on above: Performed By: #### H EMDF, PT, BMP3M, PHOS3, MG3, CK3 #### [place] [address] [place] #### VD25H #### [facility] [address] [place] [address] Monocytes #/vol (Bld) 1.0 10*3/uL High 0.0-0.8 [facility] Comment on above: Performed By: #### H EMDF, PT, BMP3M, PHOS3, MG3, CK3 #### [address] #### VD25H #### [facility] [address] [place] [address] Monocytes/100 WBC (Bld) 5.1 % Normal 2.0-10.0 [facility] Comment on above: Performed By: #### H EMDF, PT, BMP3M, PHOS3, MG3, CK3 #### [place] [address] [place] [address] #### VD25H #### [facility] [address] [place] [address] Platelet mean volume Entitic volume (Bld) 8.2 fL Normal 7.4-10.4 [facility] Comment on above: Performed By: #### H EMDF, PT, BMP3M, PHOS3, MG3, CK3 #### [address] [address] [place] #### VD25H #### [facility] [address] [place] [address] Platelets #/vol (Bld) 294 10*3/uL Normal 140-440 [facility] Comment on above: Performed By: #### H EMDF, PT, BMP3M, PHOS3, MG3, CK3 #### [address] [address] [place], [place] #### VD25H #### [facility] [address] [place] [address] RBC #/vol (Bld) 3.03 10*6/uL Low 4.40-5.90 [facility] Comment on above: Performed By: #### H EMDF, PT, BMP3M, PHOS3, MG3, CK3 #### [place] [address] [place] #### VD25H #### [facility] [address] [place] [address] WBC #/vol (Bld) 18.7 10*3/uL High 3.6-10.7 [facility] Comment on above: Performed By: #### H EMDF, PT, BMP3M, PHOS3, MG3, CK3 #### [place] [address] [place] #### VD25H #### [facility] [address] [place] [address] LDHon 07-23-2018 LDH 342 U/L High 65-175 [facility] Comment on above: Performed By: #### H EMDF, PT, BMP3M, PHOS3, MG3, CK3 #### [place] [address] [place] #### VD25H #### [facility] [address] [place] [address] Magnesiumon 07-23-2018 Magnesium mass conc 2.5 mg/dL High 1.6-2.3 [facility] Comment on above: Performed By: #### H EMDF, PT, BMP3M, PHOS3, MG3, CK3 #### [place] [address] [place] #### VD25H #### [facility] [address] [place] [address] Phosphoruson 07-23-2018 Phosphate mass conc 4.5 mg/dL Normal 2.5-4.5 [facility] Comment on above: Performed By: #### H EMDF, PT, BMP3M, PHOS3, MG3, CK3 #### [place] [address] [place] #### VD25H #### [facility] [address] [place] [address] Protein, Total Body Fluidon 07-23-2018 Protein,Total-Body Fld 2.7 g/dL Normal No Range [facility] Comment on above: Performed By: #### H EMDF, PT, BMP3M, PHOS3, MG3, CK3 #### [place] [address] [place] #### VD25H #### [facility] [address] [place] [address] Triglycerideon 07-23-2018 Triglyceride mass conc 63 mg/dL Normal <150 [facility] Comment on above: Performed By: #### H EMDF, PT, BMP3M, PHOS3, MG3, CK3 #### [facility] [address] [place], [place] #### VD25H #### [facility] [address] [place] [address] Urea Nitrogen,Ur Randomon Urea nitrogen mass conc 677 mg/dL Normal No Range [facility] Comment on above: Performed By: #### H EMDF, PT, BMP3M, PHOS3, MG3, CK3 #### [place] [address] [place] #### VD25H #### [facility] [address] [place] [address] Urinalysis,Macroon 9 Appearance Nom (U) cloudy Normal Clear [facility] Comment on above: Performed By: #### H EMDF, PT, BMP3M, PHOS3, MG3, CK3 #### [address] #### VD25H #### [facility] [address] [place] [address] Bilirubin,Ur Negative Normal Negative [facility] Comment on above: Performed By: #### H EMDF, PT, BMP3M, PHOS3, MG3, CK3 #### [address] #### VD25H #### [facility] [address] [place] [address] Color Nom (U) dk.yel Normal Lt. Yellow [facility] Comment on above: Performed By: #### H EMDF, PT, BMP3M, PHOS3, MG3, CK3 #### [address] #### VD25H #### [facility] [address] [place] [address] Glucose Ql (U) NORM Normal Negative [facility] Comment on above: Performed By: #### H EMDF, PT, BMP3M, PHOS3, MG3, CK3 #### [address], [place] #### VD25H #### [facility] [address] [place] [address] Ketone,Urine Negative Normal Negative [facility] Comment on above: Performed By: #### H EMDF, PT, BMP3M, PHOS3, MG3, CK3 #### [place] [address] [place] #### VD25H #### [facility] [address] [place] [address] Nitrite Ql (U) Negative Normal Negative [facility] Comment on above: Performed By: #### H EMDF, PT, BMP3M, PHOS3, MG3, CK3 #### [place] [address] [place] #### VD25H #### [facility] [address] [place] [address] Occult Blood,Ur 250 {RBC}/uL Normal Negative [facility] Comment on above: Performed By: #### H EMDF, PT, BMP3M, PHOS3, MG3, CK3 #### [address] [place] #### VD25H #### [facility] [address] [place] [address] pH (U) 5.0 Normal 5.0-8.0 [facility] Comment on above: Performed By: #### H EMDF, PT, BMP3M, PHOS3, MG3, CK3 #### [address] [place] #### VD25H #### [facility] [address] [place] [address] Protein mass conc (U) 75 mg/dL Normal Negative [facility] Comment on above: Performed By: #### H EMDF, PT, BMP3M, PHOS3, MG3, CK3 #### [place] [address] [place] #### VD25H #### [facility] [address] [place] [address] Specific [place],Urine 1.015 Normal 1.005-1.030 [facility] Comment on above: Performed By: #### H EMDF, PT, BMP3M, PHOS3, MG3, CK3 #### [facility] [address] [place] #### VD25H #### [facility] [address] [place] [address] Urobilinogen Qn (U) NORM Normal 0-1 [facility] Comment on above: Performed By: #### H EMDF, PT, BMP3M, PHOS3, MG3, CK3 #### [address] [address] [place] #### VD25H #### [facility] [address] [place] [address] WBC #/vol (Bld) 2 + Normal Negative [facility] Comment on above: Performed By: #### H EMDF, PT, BMP3M, PHOS3, MG3, CK3 #### [address] #### VD25H #### [facility] [address] [place] [address] Urinalysis,Microscopicon Bacteria LM.HPF #/area (Urine sed) Moderate (6-50) Normal Negative [facility] Comment on above: Performed By: #### H EMDF, PT, BMP3M, PHOS3, MG3, CK3 #### [address] [place] #### VD25H #### [facility] [address] [place] [address] Epithelial cells LM.HPF #/area (Urine sed) 0 - 2 Normal 3-5 [facility] Comment on above: Performed By: #### H EMDF, PT, BMP3M, PHOS3, MG3, CK3 #### [address] #### VD25H #### [facility] [address] [place] [address] RBC LM.HPF #/area (Urine sed) /[HPF] Normal 0-2 [facility] Comment on above: Performed By: #### H EMDF, PT, BMP3M, PHOS3, MG3, CK3 #### [facility] [address] [place] [address] #### VD25H #### [facility] [address] [place] [address] Volume,Urine 8-12 ml Normal [facility] Comment on above: Performed By: #### H EMDF, PT, BMP3M, PHOS3, MG3, CK3 #### [facility] [address] [place] [address] #### VD25H #### [facility] [address] [place] [address] WBC LM.HPF #/area (Urine sed) 26 - 50 Normal 0-5 [facility] Comment on above: Performed By: #### H EMDF, PT, BMP3M, PHOS3, MG3, CK3 #### [address] [address] #### VD25H #### [facility] [address] [place] [address] VL Venous Duplex US Lower Ex t Bilateralon 07-23-2018 VL Venous Duplex US Lower Ext Bilateral Patient Name: KATHYA HOOPER Ultrasound Exam Date/Time 07/23/2018 11:16:11 EDT Exam VL Venous Duplex US Lower Ext Bilateral Ordering Physician ETIENNE MARTÍNEZ JULIE Accession Number [id number] CPT4 Codes 36549 () Reason For Exam edema Report [facility] --- Lower Extremity Venous Duplex Report Patient Name: Kathya Hooper : 1955 Study Date: 07/23/2018 W (63yrs) Age: 63 Account: [id number] Gender: M Loc: T209 BP: Ordering: Yesenia Martínez Technologist: Ordering Physician: Yesenia Martínez Coverstitch Elastic Attacher: León Chaidez Lissette, RUST Interpreting Physician: Vamsi York MD --- Location: [facility] --- INDICATIONS: Edema. bilateral calf edema. [...] performed. The images were obtained using a [employer] E9 vascular ultrasound machine. --- VENOUS FLOW [...] --+ Electronically signed by: Vamsi York MD [id number] Final Dictated: 07/23/2018 3:00 pm Dictating Physician: VAMSI YORK Signed Date and Time: 07/23/2018 3:00 pm Signed by: VAMSI YORK [facility] Vancomycin Troughon 07-24-19 19 Vancomycin Trough 10.8 ug/mL Low 15.0-20.0 [facility] Comment on above: Result Comment: . Performed By: #### H EMDF, PT, BMP3M, PHOS3, MG3, CK3 #### [employer] [address], [place] #### VD25H #### [facility] [address] [place] [address] Basic Metabolic Panelon 06-30 Calcium mass conc 7.9 mg/dL Low 8.4-10.4 [facility] Comment on above: Performed By: #### H EMDF, PT, BMP3M, PHOS3, MG3, CK3 #### [facility] [address], [place] #### VD25H #### [facility] [employer] [address] [place] [address] Anion gap molar conc 11 Normal [facility] [employer] [facility] Comment on above: Performed By: #### H EMDF, PT, BMP3M, PHOS3, MG3, CK3 #### [facility] [address] [place] [address] #### VD25H #### [facility] [address] [place] [address] CO2 molar conc 28 mmol/L Normal 22-30 [facility] Comment on above: Performed By: #### H EMDF, PT, BMP3M, PHOS3, MG3, CK3 #### [facility] [address] [facility] #### VD25H #### [facility] [address] [place] [address] Glucose mass conc 134 mg/dL High 70-100 [facility] Comment on above: Performed By: #### H EMDF, PT, BMP3M, PHOS3, MG3, CK3 #### [place] [address] [facility] #### VD25H #### [facility] [address] [place] [address] Urea nitrogen mass conc 51 mg/dL High 7-20 [facility] Comment on above: Performed By: #### H EMDF, PT, BMP3M, PHOS3, MG3, CK3 #### [place] [address] [facility] #### VD25H #### [facility] [address] [place] [address] Creatinine mass conc 1.57 mg/dL High 0.52-1.25 [facility] Comment on above: Performed By: #### H EMDF, PT, BMP3M, PHOS3, MG3, CK3 #### [place] [address] [place] [address] #### VD25H #### [facility] [address] [place] [address] GFR/1.73 sq M predicted among blacks MDRD vol rate/area (S/P/Bld) 54.6 mL/min/{1.73_m2} Normal >60 [facility] Comment on above: Performed By: #### H EMDF, PT, BMP3M, PHOS3, MG3, CK3 #### [facility] [address] [place] #### VD25H #### [facility] [address] [place] [address] GFR/1.73 sq M predicted among non-blacks MDRD vol rate/area (S/P/Bld) 45.1 mL/min/{1.73_m2} Normal >60 [facility] Comment on above: Result Comment: Sour ce- MDRD equation with creatinine calibration to IDMS(NKDEP) eGFR not recommended for drug dose adjustment Performed By: #### H EMDF, PT, BMP3M, PHOS3, MG3, CK3 #### [place] [address] [place], [place] #### VD25H #### [facility] [address] [place] [address] Chloride molar conc 107 mmol/L Normal 98-107 [facility] Comment on above: Performed By: #### H EMDF, PT, BMP3M, PHOS3, MG3, CK3 #### [place] [address] [place] #### VD25H #### [facility] [address] [place] [address] Potassium molar conc 3.8 mmol/L Normal 3.5-5.1 [facility] Comment on above: Performed By: #### H EMDF, PT, BMP3M, PHOS3, MG3, CK3 #### [place] [address] [place] #### VD25H #### [facility] [address] [place] [address] Sodium molar conc 146 mmol/L High 135-145 [facility] Comment on above: Performed By: #### H EMDF, PT, BMP3M, PHOS3, MG3, CK3 #### [place] [address] [place], [place] #### VD25H #### [facility] [address] [place] [address] CR Abdomen APon 07-22-2018 CR Abdomen AP Patient Name: KATHYA HOOPER Diagnostic Radiology Exam Date/Time 07/22/2018 08:02:02 EDT Exam CR Abdomen AP Ordering Physician MARIA EUGENIA PEREZ Accession Number [id number] CPT4 Codes 61922 () Reason For Exam ileus Report Supine [...] NATE, [facility] Accession Number [id number] CPT4 Codes 53988 () Reason For Exam Thoracentesis Report Clinical [...] Ordering Physician MARIA EUGENIA PEREZ Accession Number [id number] CPT4 Codes 56472 () Reason For Exam ETT placement Report [...] EMDF, PT, BMP3M, PHOS3, MG3, CK3 #### [place] [address] [place], [place] #### VD25H #### [facility] [address] [place] [address] Cell Count,Body Fluidon 06-30 Nucleated Cells 259 {cells}/uL Normal [facility] Comment on above: Performed By: #### H EMDF, PT, BMP3M, PHOS3, MG3, CK3 #### [address] [place], [place] #### VD25H #### [facility] [address] [place] [address] RBC Count Body Fld 123 {RBC}/uL Normal [facility] Comment on above: Performed By: #### H EMDF, PT, BMP3M, PHOS3, MG3, CK3 #### [address] [place] [address] [place] #### VD25H #### [facility] [address] [place] [address] Fluid Type thoracentesis Normal [facility] Comment on above: Performed By: #### H EMDF, PT, BMP3M, PHOS3, MG3, CK3 #### [place] [address] [place] #### VD25H #### [facility] [address] [place] [address] Glucose, Body Fluidon 2018 Fluid Type Thoracentesis Normal [facility] Comment on above: Performed By: #### H EMDF, PT, BMP3M, PHOS3, MG3, CK3 #### [place] [address] [place] #### VD25H #### [facility] [address] [place] [address] Glucose, Body Fluid 136 mg/dL Normal No Range [facility] [employer] Comment on above: Performed By: #### H EMDF, PT, BMP3M, PHOS3, MG3, CK3 #### [facility] [address] [place], [place] #### VD25H #### [facility] [address] [place] [address] Glucose,Bedsideon 07-22-2018 Glucose mass conc 142 mg/dL High 70-100 [facility] Comment on above: Result Comment: Test performed by glucose meter. Results may be 10%-15% lower than serum/plasma values. (CLIA ID [id number]) Performed By: #### H EMDF, PT, BMP3M, PHOS3, MG3, CK3 #### [facility] [address] [place] [address] #### VD25H #### [facility] [place] [address] Glucose mass conc 127 mg/dL High 70-100 [facility] Comment on above: Result Comment: Test performed by glucose meter. Results may be 10%-15% lower than serum/plasma values. (CLIA ID [id number]) Performed By: #### H EMDF, PT, BMP3M, PHOS3, MG3, CK3 #### [facility] [address] [place] [address] #### VD25H #### [facility] [address] [place] [address] Glucose mass conc 139 mg/dL High 70-100 [facility] Comment on above: Result Comment: Test performed by glucose meter. Results may be 10%-15% lower than serum/plasma values. (CLIA ID [id number]) Performed By: #### H EMDF, PT, BMP3M, PHOS3, MG3, CK3 #### [facility] [address] #### VD25H #### [facility] [address] [place] [address] Glucose mass conc 124 mg/dL High 70-100 [facility] Comment on above: Result Comment: Test performed by glucose meter. Results may be 10%-15% lower than serum/plasma values. (CLIA ID [id number]) Performed By: #### H EMDF, PT, BMP3M, PHOS3, MG3, CK3 #### [facility] [employer] [place] [address] [place], [place] #### VD25H #### [facility] [employer] [facility] [address] [place] [address] Glucose mass conc 128 mg/dL High 70-100 [facility] Comment on above: Result Comment: Test performed by glucose meter. Results may be 10%-15% lower than serum/plasma values. (CLIA ID [id number]) Performed By: #### H EMDF, PT, BMP3M, PHOS3, MG3, CK3 #### [facility] [employer] [address] #### VD25H #### [employer] [facility] [address] [place] [address] Glucose mass conc 113 mg/dL High 70-100 [facility] Comment on above: Result Comment: Test performed by glucose meter. Results may be 10%-15% lower than serum/plasma values. (CLIA ID [id number]) Performed By: #### H EMDF, PT, BMP3M, PHOS3, MG3, CK3 #### [facility] [facility] [address] #### VD25H #### [facility] Formerly [facility] [address] [place] [address] Hemogram w/ Autodiffon 07-22 Abs Baso Cnt 0.1 10*3/uL Normal 0.0-0.2 [facility] Comment on above: Performed By: #### H EMDF, PT, BMP3M, PHOS3, MG3, CK3 #### [place] [facility] [address] #### VD25H #### [facility] [address] [place] [address] Abs Neutrophile Cnt 15.2 10*3/uL High 1.8-7.0 [facility] Comment on above: Performed By: #### H EMDF, PT, BMP3M, PHOS3, MG3, CK3 #### [address] #### VD25H #### [facility] [address] [place] [address] Basophils/100 WBC (Bld) 0.6 % Normal 0.0-2.0 [facility] Comment on above: Performed By: #### H EMDF, PT, BMP3M, PHOS3, MG3, CK3 #### [address] #### VD25H #### [place] [address] [place] [address] Eosinophils #/vol (Bld) 0.2 10*3/uL Normal 0.0-0.5 [facility] Comment on above: Performed By: #### H EMDF, PT, BMP3M, PHOS3, MG3, CK3 #### [address] #### VD25H #### [place] [address] [place] [address] Eosinophils/100 WBC (Bld) 0.9 % Low 1.0-6.0 [facility] Comment on above: Performed By: #### H EMDF, PT, BMP3M, PHOS3, MG3, CK3 #### [address] #### VD25H #### [facility] [address] [place] [address] Erythrocyte distribution width Ratio (RBC) 13.9 % Normal 11.5-14.5 [facility] Comment on above: Performed By: #### H EMDF, PT, BMP3M, PHOS3, MG3, CK3 #### [address] #### VD25H #### [facility] [address] [place] [address] Granulocytes/100 WBC (Bld) 88.8 % High 40.0-80.0 [facility] Comment on above: Performed By: #### H EMDF, PT, BMP3M, PHOS3, MG3, CK3 #### [address] #### VD25H #### [facility] [address] [place] [address] Hematocrit Volume Fraction (Bld) 31.6 % Low 40.0-52.0 [facility] Comment on above: Performed By: #### H EMDF, PT, BMP3M, PHOS3, MG3, CK3 #### [address] #### VD25H #### [facility] [address] [place] [address] Hemoglobin mass conc (Bld) 10.9 g/dL Low 13.0-18.0 [facility] Comment on above: Performed By: #### H EMDF, PT, BMP3M, PHOS3, MG3, CK3 #### [place] [address] [place] #### VD25H #### [facility] [address] [place] [address] Lymphocytes #/vol (Bld) 1.1 10*3/uL Normal 1.0-4.3 [facility] Comment on above: Performed By: #### H EMDF, PT, BMP3M, PHOS3, MG3, CK3 #### [address] #### VD25H #### [facility] [address] [place] [address] Lymphocytes/100 WBC (Bld) 6.2 % Low 20.0-40.0 [facility] Comment on above: Performed By: #### H EMDF, PT, BMP3M, PHOS3, MG3, CK3 #### [address] [place] #### VD25H #### [facility] [address] [place] [address] MCH Entitic mass (RBC) 31.1 pg Normal 26.0-34.0 [facility] Comment on above: Performed By: #### H EMDF, PT, BMP3M, PHOS3, MG3, CK3 #### [place] [address] [place] #### VD25H #### [facility] [address] [place] [address] MCHC mass conc (RBC) 34.6 % Normal 32.0-36.0 [facility] Comment on above: Performed By: #### H EMDF, PT, BMP3M, PHOS3, MG3, CK3 #### [address] #### VD25H #### [place] [address] [place] [address] MCV Entitic volume (RBC) 89.9 fL Normal 80.0-98.0 [facility] Comment on above: Performed By: #### H EMDF, PT, BMP3M, PHOS3, MG3, CK3 #### [address] #### VD25H #### [facility] [address] [place] [address] Monocytes #/vol (Bld) 0.6 10*3/uL Normal 0.0-0.8 [facility] Comment on above: Performed By: #### H EMDF, PT, BMP3M, PHOS3, MG3, CK3 #### [address] [place] #### VD25H #### [facility] [address] [place] [address] Monocytes/100 WBC (Bld) 3.5 % Normal 2.0-10.0 [facility] Comment on above: Performed By: #### H EMDF, PT, BMP3M, PHOS3, MG3, CK3 #### [address] [place] #### VD25H #### [facility] [address] [place] [address] Platelet mean volume Entitic volume (Bld) 7.9 fL Normal 7.4-10.4 [facility] Comment on above: Performed By: #### H EMDF, PT, BMP3M, PHOS3, MG3, CK3 #### [address] [place] #### VD25H #### [facility] [address] [place] [address] Platelets #/vol (Bld) 299 10*3/uL Normal 140-440 [facility] Comment on above: Performed By: #### H EMDF, PT, BMP3M, PHOS3, MG3, CK3 #### [address] #### VD25H #### [place] [address] [place] [address] RBC #/vol (Bld) 3.52 10*6/uL Low 4.40-5.90 [facility] Comment on above: Performed By: #### H EMDF, PT, BMP3M, PHOS3, MG3, CK3 #### [address] #### VD25H #### [place] [address] [place] [address] WBC #/vol (Bld) 17.1 10*3/uL High 3.6-10.7 [facility] Comment on above: Performed By: #### H EMDF, PT, BMP3M, PHOS3, MG3, CK3 #### [address] #### VD25H #### [place] [address] [place] [address] LDH, Body Fluidon 07-22-2018 LDH, Body Fluid 232 U/L Normal No Range [facility] Comment on above: Performed By: #### H EMDF, PT, BMP3M, PHOS3, MG3, CK3 #### [facility] [address] [place] [address] #### VD25H #### [facility] [address] [place] [address] Magnesiumon 07-22-2018 Magnesium mass conc 2.6 mg/dL High 1.6-2.3 [facility] Comment on above: Performed By: #### H EMDF, PT, BMP3M, PHOS3, MG3, CK3 #### [facility] [address] [place], [place] #### VD25H #### [facility] [address] [place] [address] Medical Cytology 9 Medical Cytology [address] DEPARTMENT OF PATHOLOGY AND [facility], [facility]. LABORATORY MEDICINE [address] [place] [address] FINAL MEDICAL CYTOLOGY REPORT NAME: KATHYA HOOPER N [id number] : 1955 63 Y M [facility] NO.: [id number] LOCATION: 1I T2 INMTT T209 PROCEDURE 07/22/2018 01 DATE: PHYSICIAN: NICOLE [...] . . . . . . 1 [facility] Screened by CYNDI LILLY M.D. The [...] at [facility] [address] [place] [address]. DEPARTMENT OF PATHOLOGY AND LABORATORY MEDICINE [place], [place] [address] Normal [facility] Phosphoruson 07-22-2018 Phosphate mass conc 4.6 mg/dL High 2.5-4.5 [facility] Comment on above: Performed By: #### H EMDF, PT, BMP3M, PHOS3, MG3, CK3 #### [facility] [address] [place] [address] #### VD25H #### [facility] [address] [facility] [place] [address] Procalcitoninon 07-22-2018 Protein mass conc 0.27 ng/mL Abnormal <0.10 [facility] Comment on above: Result Comment: (Cor rect ref.range is <0.09 ng/mL) Test performed: [facility], [place], [place]. Performed By: #### H EMDF, PT, BMP3M, PHOS3, MG3, CK3 #### [place] [address] [place] #### VD25H #### [facility] [address] [place] [address] Interpretation See Below Normal [facility] Comment on above: Result Comment: PCT <0.50 = Low risk of severe sepsis and/or septic shock. PCT >2.00 = High risk of severe sepsis and/or septic shock. Performed By: #### H EMDF, PT, BMP3M, PHOS3, MG3, CK3 #### [address] #### VD25H #### [place] [address] [place] [address] STAIN ACID-FASTon 07-22-2018 STAIN ACID-FAST STAIN ACID-FAST --> Status: F No acid-fast bacilli seen in smear. - Method: AFB by Kinyoun Stain - Method: AFB by Kinyoun Stain Normal [facility] Comment on above: Performed By: #### H EMDF, PT, BMP3M, PHOS3, MG3, CK3 #### [address] #### VD25H #### [place] [address] [place] [address] Triglycerideon 07-22-2018 Triglyceride mass conc 96 mg/dL Normal <150 [facility] Comment on above: Performed By: #### H EMDF, PT, BMP3M, PHOS3, MG3, CK3 #### [address] #### VD25H #### [place] [address] [place] [address] US Thora-Aspir Pleura w/ Evelin geon 07-22-2018 US Thora-Aspir Pleura w/ Image Patient Name: KATHYA HOOPER Ultrasound Exam Date/Time 07/22/2018 14:23:28 EDT Exam US Thora-Aspir Pleura w/ Image Ordering Physician MARIA EUGENIA PEREZ Accession Number [id number] CPT4 Codes 94835 () Reason For Exam L thoracentesis Report [...] EMDF, PT, BMP3M, PHOS3, MG3, CK3 #### [address] [address] #### VD25H #### [facility] [address] [place] [address] Arterial Blood Gaseson 07-21 CO2 molar conc 29.8 mmol/L High 23.0-27.0 [facility] Comment on above: Performed By: #### T SGL #### [place] [address] [place] [address] HCO3 molar conc (Bld) 28.7 mmol/L High 21.0-25.0 [facility] Comment on above: Performed By: #### T SGL #### [address] [address] Hemoglobin mass conc (Bld) 11.7 g/dL Normal ScreenOnly [facility] Comment on above: Performed By: #### T SGL #### [facility] [address] [place] [address] Oxygen ppres (Bld) 144.9 mm[Hg] High 80.0-100.0 [facility] Comment on above: Performed By: #### T SGL #### [facility] [address] [place] [address] Oxygen saturation in Blood 98.4 % Normal 95.0-100.0 [facility] Comment on above: Performed By: #### T SGL #### [facility] [address] [place] [address] pCO2 36.8 mm[Hg] Normal 35.0-45.0 [facility] Comment on above: Performed By: #### T SGL #### [place] [address] [place] [address] pH (Bld) 7.510 High 7.350-7.450 [facility] Comment on above: Performed By: #### T SGL #### [place] [address] [place] [address] Std Base Excess 5.5 mmol/L High -3.0-3.0 [facility] Comment on above: Performed By: #### T SGL #### [place] [address] [place] [address] FIO2 .50 Normal [facility] Comment on above: Performed By: #### T SGL #### [place] [address] [place] [address] CR Abdomen APon 07-21-2018 CR Abdomen AP Patient Name: KATHYA HOOPER Diagnostic Radiology Exam Date/Time 07/21/2018 06:41:07 EDT Exam CR Abdomen AP Ordering Physician [id number] AGUILERA Accession Number [id number] CPT4 Codes 24907 () Reason For Exam ileus Report Reason [...] Ordering Physician MARIA EUGENIA PEREZ Accession Number [id number] CPT4 Codes 48348 () Reason For Exam ETT placement Report [...] Ordering Physician MD GRIFFIN NICHOLAS Accession Number [id number] CPT4 Codes 06265 () Reason For Exam s/p bronch Report [...] conc 7.9 mg/dL Low 8.4-10.4 [facility] Comment on above: Performed By: #### T SGL #### [facility] [address] [place] [address] ALP enzyme act/vol 85 U/L Normal 38-126 [facility] Comment on above: Performed By: #### T SGL #### [facility] [address] [place] [address] ALT enzyme act/vol 105 U/L High 13-69 [facility] Comment on above: Performed By: #### T SGL #### [facility] [address] [place] [address] Anion gap molar conc 8 Normal [facility] Comment on above: Performed By: #### T SGL #### [facility] [address] [place] [address] AST enzyme act/vol 78 U/L High 15-46 [facility] Comment on above: Performed By: #### T SGL #### [facility] [address] [place] [address] Bilirubin mass conc 1.1 mg/dL Normal 0.2-1.3 [facility] Comment on above: Performed By: #### T SGL #### [facility] [address] [place] [address] CO2 molar conc 33 mmol/L High 22-30 [facility] Comment on above: Performed By: #### T SGL #### [facility] [address] [place] [address] Creatinine mass conc 0.90 mg/dL Normal 0.52-1.25 [facility] Comment on above: Performed By: #### T SGL #### [place] [address] [place] [address] GFR/1.73 sq M predicted among blacks MDRD vol rate/area (S/P/Bld) mL/min/{1.73_m2} Normal >60 [facility] Comment on above: Performed By: #### T SGL #### [place] [address] [place] [address] GFR/1.73 sq M predicted among non-blacks MDRD vol rate/area (S/P/Bld) mL/min/{1.73_m2} Normal >60 [facility] Comment on above: Result Comment: Sour ce- MDRD equation with creatinine calibration to IDMS(NKDEP) eGFR not recommended for drug dose adjustment Performed By: #### T SGL #### [facility] [address] [place] [address] Glucose mass conc 113 mg/dL High 70-100 [facility] Comment on above: Performed By: #### T SGL #### [facility] [address] [place] [address] Protein mass conc 5.6 g/dL Low 6.3-8.2 [facility] Comment on above: Performed By: #### T SGL #### [facility] [address] [place] [address] Urea nitrogen mass conc 28 mg/dL High 7-20 [facility] Comment on above: Performed By: #### T SGL #### [facility] [address] [place] [address] Chloride molar conc 104 mmol/L Normal 98-107 [facility] Comment on above: Performed By: #### T SGL #### [facility] [address] [place] [address] Potassium molar conc 3.6 mmol/L Normal 3.5-5.1 [facility] Comment on above: Performed By: #### T SGL #### [facility] [address] [place] [address] Sodium molar conc 145 mmol/L Normal 135-145 [facility] Comment on above: Performed By: #### T SGL #### [facility] [address] [place] [address] Albumin mass conc 2.8 g/dL Low 3.5-5.0 [facility] Comment on above: Performed By: #### T SGL #### [facility] [address] [place] [address] Glucose,Bedsideon 07-21-2018 Glucose mass conc 124 mg/dL High 70-100 [facility] Comment on above: Result Comment: Test performed by glucose meter. Results may be 10%-15% lower than serum/plasma values. (CLIA ID [id number]) Performed By: #### H EMDF, PT, BMP3M, PHOS3, MG3, CK3 #### [facility] [address] [place] [address] #### VD25H #### [facility] [address] [place] [address] Glucose mass conc 151 mg/dL High 70-100 [facility] Comment on above: Result Comment: Test performed by glucose meter. Results may be 10%-15% lower than serum/plasma values. (CLIA ID [id number]) Performed By: #### H EMDF, PT, BMP3M, PHOS3, MG3, CK3 #### [facility] [employer] [address] [place] [address] #### VD25H #### [facility] [address] [place] [address] Glucose mass conc 127 mg/dL High 70-100 [facility] Comment on above: Result Comment: Test performed by glucose meter. Results may be 10%-15% lower than serum/plasma values. (CLIA ID [id number]) Performed By: #### T SGL #### [facility] [address] [place] [address] Glucose mass conc 113 mg/dL High 70-100 [facility] Comment on above: Result Comment: Test performed by glucose meter. Results may be 10%-15% lower than serum/plasma values. (CLIA ID [id number]) Performed By: #### A DDON #### [facility] [address] [place] [address] Hemogram w/ Autodiffon 07-21 Abs Baso Cnt 0.1 10*3/uL Normal 0.0-0.2 [facility] Comment on above: Performed By: #### T SGL #### [facility] [address] [place] [address] Abs Neutrophile Cnt 11.0 10*3/uL High 1.8-7.0 [facility] Comment on above: Performed By: #### T SGL #### [facility] [address] [place] [address] Basophils/100 WBC (Bld) 0.5 % Normal 0.0-2.0 [facility] Comment on above: Performed By: #### T SGL #### [facility] [address] [place] [address] Eosinophils #/vol (Bld) 0.3 10*3/uL Normal 0.0-0.5 [facility] Comment on above: Performed By: #### T SGL #### [facility] [address] [place] [address] Eosinophils/100 WBC (Bld) 1.9 % Normal 1.0-6.0 [facility] Comment on above: Performed By: #### T SGL #### [place] [address] [place] [address] Erythrocyte distribution width Ratio (RBC) 13.7 % Normal 11.5-14.5 [facility] Comment on above: Performed By: #### T SGL #### [address] [address] Granulocytes/100 WBC (Bld) 81.0 % High 40.0-80.0 [facility] Comment on above: Performed By: #### T SGL #### [address] [place] [address] Hematocrit Volume Fraction (Bld) 32.1 % Low 40.0-52.0 [facility] Comment on above: Performed By: #### T SGL #### [address] [address] Hemoglobin mass conc (Bld) 10.7 g/dL Low 13.0-18.0 [facility] Comment on above: Performed By: #### T SGL #### [address] [address] Lymphocytes #/vol (Bld) 1.3 10*3/uL Normal 1.0-4.3 [facility] Comment on above: Performed By: #### T SGL #### [address] [address] Lymphocytes/100 WBC (Bld) 9.8 % Low 20.0-40.0 [facility] Comment on above: Performed By: #### T SGL #### [address] [address] MCH Entitic mass (RBC) 29.0 pg Normal 26.0-34.0 [facility] Comment on above: Performed By: #### T SGL #### [address] [address] MCHC mass conc (RBC) 33.4 % Normal 32.0-36.0 [facility] Comment on above: Performed By: #### T SGL #### [address] [address] MCV Entitic volume (RBC) 86.9 fL Normal 80.0-98.0 [facility] Comment on above: Performed By: #### T SGL #### [facility] [address] [place] [address] Monocytes #/vol (Bld) 0.9 10*3/uL High 0.0-0.8 [facility] Comment on above: Performed By: #### T SGL #### [facility] [address] [place] [address] Monocytes/100 WBC (Bld) 6.8 % Normal 2.0-10.0 [facility] Comment on above: Performed By: #### T SGL #### [place] [address] [place] [address] Platelet mean volume Entitic volume (Bld) 7.4 fL Normal 7.4-10.4 [facility] Comment on above: Performed By: #### T SGL #### [place] [address] [place] [address] Platelets #/vol (Bld) 367 10*3/uL Normal 140-440 [facility] Comment on above: Performed By: #### T SGL #### [place] [address] [place] [address] RBC #/vol (Bld) 3.69 10*6/uL Low 4.40-5.90 [facility] Comment on above: Performed By: #### T SGL #### [place] [address] [place] [address] WBC #/vol (Bld) 13.6 10*3/uL High 3.6-10.7 [facility] Comment on above: Performed By: #### T SGL #### [place] [address] [place] [address] Magnesiumon 07-21-2018 Magnesium mass conc 2.6 mg/dL High 1.6-2.3 [facility] Comment on above: Performed By: #### T SGL #### [place] [address] [place] [address] Phosphoruson 07-21-2018 Phosphate mass conc 4.2 mg/dL Normal 2.5-4.5 [facility] Comment on above: Performed By: #### T SGL #### [place] [address] [place] [address] Triglycerideon 07-21-2018 Triglyceride mass conc 105 mg/dL Normal <150 [facility] Comment on above: Performed By: #### T SGL #### [place] [address] [place] [address] Add on test from HISon 07-20 Add on test from HIS Accepted Normal [facility] Comment on above: Result Comment: Spec imen available & acceptable for analysis. Performed By: #### A DDON #### [place] [address] [place] [address] Basic Metabolic Panelon 06-30 Calcium mass conc 7.7 mg/dL Low 8.4-10.4 [facility] Comment on above: Performed By: #### A DDON #### [place] [address] [place] [address] Glucose mass conc 96 mg/dL Normal 70-100 [facility] Comment on above: Performed By: #### A DDON #### [place] [address] [place] [address] Urea nitrogen mass conc 22 mg/dL High 7-20 [facility] Comment on above: Performed By: #### A DDON #### [place] [address] [place] [address] Anion gap molar conc 10 Normal [facility] Comment on above: Performed By: #### A DDON #### [place] [address] [place] [address] CO2 molar conc 29 mmol/L Normal 22-[address] [facility] Comment on above: Performed By: #### A DDON #### [place] [address] [place] [address] Creatinine mass conc 0.87 mg/dL Normal 0.52-1.25 [facility] Comment on above: Performed By: #### A DDON #### [place] [address] [place] [address] GFR/1.73 sq M predicted among blacks MDRD vol rate/area (S/P/Bld) mL/min/{1.73_m2} Normal >60 [facility] Comment on above: Performed By: #### A DDON #### [facility] [address] [place] [address] GFR/1.73 sq M predicted among non-blacks MDRD vol rate/area (S/P/Bld) mL/min/{1.73_m2} Normal >60 [facility] Comment on above: Result Comment: Sour ce- MDRD equation with creatinine calibration to IDMS(NKDEP) eGFR not recommended for drug dose adjustment Performed By: #### A DDON #### [facility] [address] [place] [address] Potassium molar conc 3.6 mmol/L Normal 3.5-5.1 [facility] Comment on above: Performed By: #### A DDON #### [place] [address] [place] [address] Chloride molar conc 105 mmol/L Normal 98-107 [facility] Comment on above: Performed By: #### A DDON #### [facility] [address] [place] [address] Sodium molar conc 144 mmol/L Normal 135-145 [facility] Comment on above: Performed By: #### A DDON #### [place] [address] [place] [address] CR Abdomen APon 07-20-2018 CR Abdomen AP Patient Name: KATHYA HOOPER Diagnostic Radiology Exam Date/Time 07/20/2018 08:39:45 EDT Exam CR Abdomen AP Ordering Physician [id number] JOYA PERRY Accession Number [id number] CPT4 Codes 42449 () Reason For Exam ileus Report Clinical [...] Ordering Physician MARIA EUGENIA PEREZ Accession Number [id number] CPT4 Codes 20373 () Reason For Exam ETT placement Report [...] w/ IV Contrast (IV Onl Ordering Physician [id number] AGUILERA Accession Number [id number] CPT4 Codes 28041 (CT Abdomen/Pelvis w/ IV Contrast (IV Onl) [...] Exam CT Chest w/ Contrast Ordering Physician [id number] JOYA PERRY Accession Number [id number] CPT4 Codes 41591 (), Q9967 (CT ISOVUE [id number]) Reason For Exam SOB, possible pneumonia Report [...] conc 128 mg/dL High 70-100 [facility] Comment on above: Result Comment: Test performed by glucose meter. Results may be 10%-15% lower than serum/plasma values. (CLIA ID [id number]) Performed By: #### A DDON #### [address] [place], [place] Hemogram w/ Autodiffon 07-20 Abs Baso Cnt 0.1 10*3/uL Normal 0.0-0.2 [facility] Comment on above: Performed By: #### H EMDF, PT, BMP3M, PHOS3, MG3, CK3 #### [facility] [address] [place], [place] #### VD25H #### [facility] [address] [place] [address] Abs Neutrophile Cnt 13.0 10*3/uL High 1.8-7.0 [facility] Comment on above: Performed By: #### H EMDF, PT, BMP3M, PHOS3, MG3, CK3 #### [facility] [address] [place], [place] #### VD25H #### [facility] [address] [place] [address] Basophils/100 WBC (Bld) 0.3 % Normal 0.0-2.0 [facility] Comment on above: Performed By: #### H EMDF, PT, BMP3M, PHOS3, MG3, CK3 #### [place] [address] [place] #### VD25H #### [facility] [address] [place] [address] Eosinophils #/vol (Bld) 0.3 10*3/uL Normal 0.0-0.5 [facility] Comment on above: Performed By: #### H EMDF, PT, BMP3M, PHOS3, MG3, CK3 #### [address] #### VD25H #### [place] [address] [place] [address] Eosinophils/100 WBC (Bld) 1.9 % Normal 1.0-6.0 [facility] Comment on above: Performed By: #### H EMDF, PT, BMP3M, PHOS3, MG3, CK3 #### [address] #### VD25H #### [facility] [address] [place] [address] Erythrocyte distribution width Ratio (RBC) 13.3 % Normal 11.5-14.5 [facility] Comment on above: Performed By: #### H EMDF, PT, BMP3M, PHOS3, MG3, CK3 #### [address] #### VD25H #### [facility] [address] [place] [address] Granulocytes/100 WBC (Bld) 81.8 % High 40.0-80.0 [facility] Comment on above: Performed By: #### H EMDF, PT, BMP3M, PHOS3, MG3, CK3 #### [address] #### VD25H #### [facility] [facility] [address] [place] [address] Hematocrit Volume Fraction (Bld) 33.6 % Low 40.0-52.0 [facility] Comment on above: Performed By: #### H EMDF, PT, BMP3M, PHOS3, MG3, CK3 #### [address] #### VD25H #### [facility] [address] [place] [address] Hemoglobin mass conc (Bld) 11.4 g/dL Low 13.0-18.0 [facility] Comment on above: Performed By: #### H EMDF, PT, BMP3M, PHOS3, MG3, CK3 #### [address] #### VD25H #### [place] [address] [place] [address] Lymphocytes #/vol (Bld) 1.5 10*3/uL Normal 1.0-4.3 [facility] Comment on above: Performed By: #### H EMDF, PT, BMP3M, PHOS3, MG3, CK3 #### [address] #### VD25H #### [place] [address] [place] [address] Lymphocytes/100 WBC (Bld) 9.2 % Low 20.0-40.0 [facility] Comment on above: Performed By: #### H EMDF, PT, BMP3M, PHOS3, MG3, CK3 #### [address] #### VD25H #### [place] [address] [place] [address] MCH Entitic mass (RBC) 29.3 pg Normal 26.0-34.0 [facility] Comment on above: Performed By: #### H EMDF, PT, BMP3M, PHOS3, MG3, CK3 #### [address] #### VD25H #### [facility] [address] [place] [address] MCHC mass conc (RBC) 33.9 % Normal 32.0-36.0 [facility] Comment on above: Performed By: #### H EMDF, PT, BMP3M, PHOS3, MG3, CK3 #### [address] #### VD25H #### [place] [address] [place] [address] MCV Entitic volume (RBC) 86.5 fL Normal 80.0-98.0 [facility] Comment on above: Performed By: #### H EMDF, PT, BMP3M, PHOS3, MG3, CK3 #### [address] #### VD25H #### [place] [address] [place] [address] Monocytes #/vol (Bld) 1.1 10*3/uL High 0.0-0.8 [facility] Comment on above: Performed By: #### H EMDF, PT, BMP3M, PHOS3, MG3, CK3 #### [address] #### VD25H #### [place] [address] [place] [address] Monocytes/100 WBC (Bld) 6.8 % Normal 2.0-10.0 [facility] Comment on above: Performed By: #### H EMDF, PT, BMP3M, PHOS3, MG3, CK3 #### [address] #### VD25H #### [place] [address] [place] [address] Platelet mean volume Entitic volume (Bld) 7.5 fL Normal 7.4-10.4 [facility] Comment on above: Performed By: #### H EMDF, PT, BMP3M, PHOS3, MG3, CK3 #### [place] [address] [place], [place] #### VD25H #### [facility] [address] [place] [address] Platelets #/vol (Bld) 375 10*3/uL Normal 140-440 [facility] Comment on above: Performed By: #### H EMDF, PT, BMP3M, PHOS3, MG3, CK3 #### [place] [address] [place] #### VD25H #### [facility] [address] [place] [address] RBC #/vol (Bld) 3.88 10*6/uL Low 4.40-5.90 [facility] Comment on above: Performed By: #### H EMDF, PT, BMP3M, PHOS3, MG3, CK3 #### [place] [address] [place] #### VD25H #### [place] [address] [place] [address] WBC #/vol (Bld) 15.9 10*3/uL High 3.6-10.7 [facility] Comment on above: Performed By: #### H EMDF, PT, BMP3M, PHOS3, MG3, CK3 #### [address] #### VD25H #### [place] [address] [place] [address] Phosphoruson 07-20-2018 Phosphate mass conc 5.5 mg/dL High 2.5-4.5 [facility] Comment on above: Performed By: #### A DDON #### [address] Add on test from HISon 07-19 Add on test from HIS Accepted Normal [facility] Comment on above: Result Comment: Spec imen available & acceptable for analysis. Performed By: #### H EMDF, PT, BMP3M, PHOS3, MG3, CK3 #### [address] #### VD25H #### [facility] [address] [place] [address] Arterial Blood Gaseson 07-19 CO2 molar conc 31.5 mmol/L High 23.0-27.0 [facility] Comment on above: Performed By: #### H EMDF, PT, BMP3M, PHOS3, MG3, CK3 #### [address] [place], [place] #### VD25H #### [facility] [address] [place] [address] HCO3 molar conc (Bld) 30.2 mmol/L High 21.0-25.0 [facility] Comment on above: Performed By: #### H EMDF, PT, BMP3M, PHOS3, MG3, CK3 #### [address] #### VD25H #### [place] [address] [place] [address] Hemoglobin mass conc (Bld) 11.7 g/dL Normal [facility] Comment on above: Performed By: #### H EMDF, PT, BMP3M, PHOS3, MG3, CK3 #### [address] #### VD25H #### [place] [address] [place] [address] Oxygen ppres (Bld) 85.1 mm[Hg] Normal 80.0-100.0 [facility] Comment on above: Performed By: #### H EMDF, PT, BMP3M, PHOS3, MG3, CK3 #### [address] #### VD25H #### [place] [address] [place] [address] Oxygen saturation in Blood 95.9 % Normal 95.0-100.0 [facility] Comment on above: Performed By: #### H EMDF, PT, BMP3M, PHOS3, MG3, CK3 #### [address] [place] #### VD25H #### [facility] [address] [place] [address] pCO2 43.6 mm[Hg] Normal 35.0-45.0 [facility] Comment on above: Performed By: #### H EMDF, PT, BMP3M, PHOS3, MG3, CK3 #### [address] #### VD25H #### [facility] [address] [place] [address] pH (Bld) 7.458 High 7.350-7.450 [facility] Comment on above: Performed By: #### H EMDF, PT, BMP3M, PHOS3, MG3, CK3 #### [address] #### VD25H #### [place] [address] [place] [address] Std Base Excess 5.7 mmol/L High -3.0-3.0 [facility] Comment on above: Performed By: #### H EMDF, PT, BMP3M, PHOS3, MG3, CK3 #### [address] #### VD25H #### [facility] [address] [place] [address] FIO2 40% Normal [facility] Comment on above: Performed By: #### H EMDF, PT, BMP3M, PHOS3, MG3, CK3 #### [address] #### VD25H #### [facility] [address] [place] [address] Basic Metabolic Panelon 03-2 Calcium mass conc 7.5 mg/dL Low 8.4-10.4 [facility] Comment on above: Performed By: #### H EMDF, PT, BMP3M, PHOS3, MG3, CK3 #### [place] [address] [place] [address] #### VD25H #### [facility] [address] [place] [address] Glucose mass conc 274 mg/dL High 70-100 [facility] Comment on above: Performed By: #### H EMDF, PT, BMP3M, PHOS3, MG3, CK3 #### [place] [address] [place] [address] #### VD25H #### [facility] [address] [place] [address] Anion gap molar conc 6 Normal [facility] Comment on above: Performed By: #### H EMDF, PT, BMP3M, PHOS3, MG3, CK3 #### [address] #### VD25H #### [facility] [address] [place] [address] CO2 molar conc 31 mmol/L High 22-30 [facility] Comment on above: Performed By: #### H EMDF, PT, BMP3M, PHOS3, MG3, CK3 #### [place] [address] [place] #### VD25H #### [facility] [address] [place] [address] Creatinine mass conc 0.64 mg/dL Normal 0.52-1.25 [facility] Comment on above: Performed By: #### H EMDF, PT, BMP3M, PHOS3, MG3, CK3 #### [address] #### VD25H #### [facility] [address] [place] [address] GFR/1.73 sq M predicted among blacks MDRD vol rate/area (S/P/Bld) mL/min/{1.73_m2} Normal >60 [facility] Comment on above: Performed By: #### H EMDF, PT, BMP3M, PHOS3, MG3, CK3 #### [place] [address] [facility], [place] #### VD25H #### [facility] [address] [place] [address] GFR/1.73 sq M predicted among non-blacks MDRD vol rate/area (S/P/Bld) mL/min/{1.73_m2} Normal >60 [facility] Comment on above: Result Comment: Sour ce- MDRD equation with creatinine calibration to IDMS(NKDEP) eGFR not recommended for drug dose adjustment Performed By: #### H EMDF, PT, BMP3M, PHOS3, MG3, CK3 #### [place] [address] [facility] #### VD25H #### [facility] [address] [place] [address] Urea nitrogen mass conc 15 mg/dL Normal 7-20 [facility] Comment on above: Performed By: #### H EMDF, PT, BMP3M, PHOS3, MG3, CK3 #### [place] [address] [facility] #### VD25H #### [facility] [address] [place] [address] Chloride molar conc 105 mmol/L Normal 98-107 [facility] Comment on above: Performed By: #### H EMDF, PT, BMP3M, PHOS3, MG3, CK3 #### [place] [address] [facility] #### VD25H #### [facility] [address] [place] [address] Potassium molar conc 4.3 mmol/L Normal 3.5-5.1 [facility] Comment on above: Performed By: #### H EMDF, PT, BMP3M, PHOS3, MG3, CK3 #### [place] [address] [facility] #### VD25H #### [facility] [address] [place] [address] Sodium molar conc 141 mmol/L Normal 135-145 [facility] [employer] [facility] Comment on above: Performed By: #### H EMDF, PT, BMP3M, PHOS3, MG3, CK3 #### [facility] [employer] [facility] [address] [facility] [place] [place] [address] #### VD25H #### [facility] [employer] [facility] [address] [place] [address] CR Abdomen APon 07-19-2018 CR Abdomen AP Patient Name: KATHYA HOOPER Diagnostic Radiology Exam Date/Time 07/19/2018 06:44:12 EDT Exam CR Abdomen AP Ordering Physician JOYA ROJAS Accession Number [id number] CPT4 Codes 48363 () Reason For Exam ileus Report Abdomen: [...] Ordering Physician MARIA EUGENIA PEREZ Accession Number [id number] CPT4 Codes 36596 () Reason For Exam ETT placement Report [...] Time: 07/19/2018 7:45 am Signed by: MD JOHNSNO RISA Transcribed Date and Time: 07/19/2018 7:44 Normal [facility] Glucose,Bedsideon 07-19-2018 Glucose mass conc 95 mg/dL Normal 70-100 [facility] Comment on above: Result Comment: Test performed by glucose meter. Results may be 10%-15% lower than serum/plasma values. (CLIA ID [id number]) Performed By: #### H EMDF, PT, BMP3M, PHOS3, MG3, CK3 #### [place] [address] [place], [place] #### VD25H #### [facility] [address] [place] [address] Hemogram w/ Autodiffon 07-19 Abs Baso Cnt 0.1 10*3/uL Normal 0.0-0.2 [facility] Comment on above: Performed By: #### H EMDF, PT, BMP3M, PHOS3, MG3, CK3 #### [facility] [address] [place] #### VD25H #### [facility] [address] [place] [address] Abs Neutrophile Cnt 9.8 10*3/uL High 1.8-7.0 [facility] Comment on above: Performed By: #### H EMDF, PT, BMP3M, PHOS3, MG3, CK3 #### [address] #### VD25H #### [facility] [address] [place] [address] Basophils/100 WBC (Bld) 0.5 % Normal 0.0-2.0 [facility] Comment on above: Performed By: #### H EMDF, PT, BMP3M, PHOS3, MG3, CK3 #### [place] [address] [place] #### VD25H #### [facility] [address] [place] [address] Eosinophils #/vol (Bld) 0.3 10*3/uL Normal 0.0-0.5 [facility] Comment on above: Performed By: #### H EMDF, PT, BMP3M, PHOS3, MG3, CK3 #### [address] #### VD25H #### [facility] [address] [place] [address] Eosinophils/100 WBC (Bld) 2.5 % Normal 1.0-6.0 [facility] Comment on above: Performed By: #### H EMDF, PT, BMP3M, PHOS3, MG3, CK3 #### [address] #### VD25H #### [facility] [address] [place] [address] Erythrocyte distribution width Ratio (RBC) 13.3 % Normal 11.5-14.5 [facility] Comment on above: Performed By: #### H EMDF, PT, BMP3M, PHOS3, MG3, CK3 #### [address] #### VD25H #### [facility] [address] [place] [address] Granulocytes/100 WBC (Bld) 80.4 % High 40.0-80.0 [facility] Comment on above: Performed By: #### H EMDF, PT, BMP3M, PHOS3, MG3, CK3 #### [address] #### VD25H #### [facility] [address] [place] [address] Hematocrit Volume Fraction (Bld) 30.6 % Low 40.0-52.0 [facility] Comment on above: Performed By: #### H EMDF, PT, BMP3M, PHOS3, MG3, CK3 #### [facility] [address] [place] #### VD25H #### [facility] [address] [place] [address] Hemoglobin mass conc (Bld) 10.5 g/dL Low 13.0-18.0 [facility] Comment on above: Performed By: #### H EMDF, PT, BMP3M, PHOS3, MG3, CK3 #### [address] #### VD25H #### [facility] [address] [place] [address] Lymphocytes #/vol (Bld) 1.1 10*3/uL Normal 1.0-4.3 [facility] Comment on above: Performed By: #### H EMDF, PT, BMP3M, PHOS3, MG3, CK3 #### [address] #### VD25H #### [facility] [address] [place] [address] Lymphocytes/100 WBC (Bld) 9.1 % Low 20.0-40.0 [facility] Comment on above: Performed By: #### H EMDF, PT, BMP3M, PHOS3, MG3, CK3 #### [facility] [address] [place], [place] #### VD25H #### [facility] [address] [place] [address] MCH Entitic mass (RBC) 29.7 pg Normal 26.0-34.0 [facility] Comment on above: Performed By: #### H EMDF, PT, BMP3M, PHOS3, MG3, CK3 #### [facility] [address] [place] #### VD25H #### [facility] [address] [place] [address] MCHC mass conc (RBC) 34.3 % Normal 32.0-36.0 [facility] Comment on above: Performed By: #### H EMDF, PT, BMP3M, PHOS3, MG3, CK3 #### [address] #### VD25H #### [facility] [address] [place] [address] MCV Entitic volume (RBC) 86.7 fL Normal 80.0-98.0 [facility] Comment on above: Performed By: #### H EMDF, PT, BMP3M, PHOS3, MG3, CK3 #### [address] #### VD25H #### [place] [address] [place] [address] Monocytes #/vol (Bld) 0.9 10*3/uL High 0.0-0.8 [facility] Comment on above: Performed By: #### H EMDF, PT, BMP3M, PHOS3, MG3, CK3 #### [address] #### VD25H #### [facility] [address] [place] [address] Monocytes/100 WBC (Bld) 7.5 % Normal 2.0-10.0 [facility] Comment on above: Performed By: #### H EMDF, PT, BMP3M, PHOS3, MG3, CK3 #### [address] #### VD25H #### [facility] [address] [place] [address] Platelet mean volume Entitic volume (Bld) 7.3 fL Low 7.4-10.4 [facility] Comment on above: Performed By: #### H EMDF, PT, BMP3M, PHOS3, MG3, CK3 #### [address] #### VD25H #### [facility] [address] [place] [address] Platelets #/vol (Bld) 329 10*3/uL Normal 140-440 [facility] Comment on above: Performed By: #### H EMDF, PT, BMP3M, PHOS3, MG3, CK3 #### [address] #### VD25H #### [facility] [address] [place] [address] RBC #/vol (Bld) 3.53 10*6/uL Low 4.40-5.90 [facility] Comment on above: Performed By: #### H EMDF, PT, BMP3M, PHOS3, MG3, CK3 #### [address] #### VD25H #### [facility] [address] [place] [address] WBC #/vol (Bld) 12.2 10*3/uL High 3.6-10.7 [facility] Comment on above: Performed By: #### H EMDF, PT, BMP3M, PHOS3, MG3, CK3 #### [address] #### VD25H #### [facility] [address] [place] [address] Magnesiumon 07-19-2018 Magnesium mass conc 2.3 mg/dL Normal 1.6-2.3 [facility] Comment on above: Performed By: #### H EMDF, PT, BMP3M, PHOS3, MG3, CK3 #### [address] #### VD25H #### [facility] [address] [place] [address] Procalcitoninon 07-19-2018 Protein mass conc 0.15 ng/mL Abnormal <0.10 [facility] Comment on above: Performed By: #### H EMDF, PT, BMP3M, PHOS3, MG3, CK3 #### [facility] [address] [place] [address] #### VD25H #### [facility] [address] [place] [address] Interpretation See Below Normal [facility] Comment on above: Result Comment: PCT <0.50 = Low risk of severe sepsis and/or septic shock. PCT >2.00 = High risk of severe sepsis and/or septic shock. Performed By: #### H EMDF, PT, BMP3M, PHOS3, MG3, CK3 #### [facility] [address] [place] [address] #### VD25H #### [facility] [address] [place] [address] VL Venous Duplex US Lower Ex t Bilateralon 07-19-2018 VL Venous Duplex US Lower Ext Bilateral Patient Name: KATHYA HOOPER Ultrasound Exam Date/Time 07/19/2018 11:10:14 EDT Exam VL Venous Duplex US Lower Ext Bilateral Ordering Physician ETIENNE MARTÍNEZ JULIE Accession Number [id number] CPT4 Codes 25021 () Reason For Exam edema Report [facility] --- Lower Extremity Venous Duplex Report Patient Name: Kathya Hooper : 1955 Study Date: 07/19/2018 W (63yrs) Age: 63 Account: [id number] Gender: M Loc: T209 BP: Ordering: Yesenia Martínez Technologist: Ordering Physician: Yesenia Martínez Coverstitch Elastic Attacher: León Chaidez RVT, RUST Interpreting Physician: Ricardo Hall MD --- Location: [facility] --- INDICATIONS: Edema. bilateral calf edema. [...] performed. The images were obtained using a [employer] E9 vascular ultrasound machine. --- VENOUS FLOW [...] --+ Electronically signed by: Ricardo Hall MD [id number] Final Dictated: 07/20/2018 10:49 am Dictating Physician: RICARDO HALL Signed Date and Time: 07/19/2018 11:03 am Signed by: RICARDO HALL Normal [facility] Basic Metabolic Panelon 06-30 Calcium mass conc 7.9 mg/dL Low 8.4-10.4 [facility] Comment on above: Performed By: #### H EMDF, PT, BMP3M, PHOS3, MG3, CK3 #### [facility] [address] [place] #### VD25H #### [facility] [address] [place] [address] Glucose mass conc 113 mg/dL High 70-100 [facility] Comment on above: Performed By: #### H EMDF, PT, BMP3M, PHOS3, MG3, CK3 #### [facility] [address] [place] #### VD25H #### [facility] [address] [place] [address] Anion gap molar conc 7 Normal [facility] Comment on above: Performed By: #### H EMDF, PT, BMP3M, PHOS3, MG3, CK3 #### [facility] [address] [place] #### VD25H #### [facility] [address] [place] [address] CO2 molar conc 31 mmol/L High 22-30 [facility] Comment on above: Performed By: #### H EMDF, PT, BMP3M, PHOS3, MG3, CK3 #### [facility] [address] [place] #### VD25H #### [facility] [address] [place] [address] Creatinine mass conc 0.59 mg/dL Normal 0.52-1.25 [facility] Comment on above: Performed By: #### H EMDF, PT, BMP3M, PHOS3, MG3, CK3 #### [address] #### VD25H #### [facility] [address] [place] [address] GFR/1.73 sq M predicted among blacks MDRD vol rate/area (S/P/Bld) mL/min/{1.73_m2} Normal >60 [facility] Comment on above: Performed By: #### H EMDF, PT, BMP3M, PHOS3, MG3, CK3 #### [address] #### VD25H #### [facility] [address] [place] [address] GFR/1.73 sq M predicted among non-blacks MDRD vol rate/area (S/P/Bld) mL/min/{1.73_m2} Normal >60 [facility] Comment on above: Result Comment: Sour ce- MDRD equation with creatinine calibration to IDMS(NKDEP) eGFR not recommended for drug dose adjustment Performed By: #### H EMDF, PT, BMP3M, PHOS3, MG3, CK3 #### [address] #### VD25H #### [facility] [address] [place] [address] Urea nitrogen mass conc 19 mg/dL Normal 7-20 [facility] Comment on above: Performed By: #### H EMDF, PT, BMP3M, PHOS3, MG3, CK3 #### [address] #### VD25H #### [facility] [address] [place] [address] Chloride molar conc 104 mmol/L Normal 98-107 [facility] Comment on above: Performed By: #### H EMDF, PT, BMP3M, PHOS3, MG3, CK3 #### [facility] [address] [place] [address] #### VD25H #### [facility] [address] [place] [address] Potassium molar conc 3.4 mmol/L Low 3.5-5.1 [facility] Comment on above: Performed By: #### H EMDF, PT, BMP3M, PHOS3, MG3, CK3 #### [facility] [address] [place] [address] #### VD25H #### [facility] [address] [place] [address] Sodium molar conc 142 mmol/L Normal 135-145 [facility] Comment on above: Performed By: #### H EMDF, PT, BMP3M, PHOS3, MG3, CK3 #### [facility] [address] [place] [address] #### VD25H #### [facility] [address] [place] [address] CR Abdomen APon 07-18-2018 CR Abdomen AP Patient Name: KATHYA HOOPER Diagnostic Radiology Exam Date/Time 07/18/2018 06:52:18 EDT Exam CR Abdomen AP Ordering Physician [id number] AGUILREA Accession Number [id number] CPT4 Codes 46430 () Reason For Exam ileus Report CLINICAL [...] Ordering Physician MARIA EUGENIA PEREZ Accession Number [id number] CPT4 Codes 27750 () Reason For Exam ETT placement Report [...] Abs Baso Cnt 0.0 10*3/uL Normal 0.0-0.2 [facility] [employer] [facility] Comment on above: Performed By: #### H EMDF, PT, BMP3M, PHOS3, MG3, CK3 #### [address] [address] #### VD25H #### [facility] [address] [place] [address] Abs Neutrophile Cnt 8.6 10*3/uL High 1.8-7.0 [facility] Comment on above: Performed By: #### H EMDF, PT, BMP3M, PHOS3, MG3, CK3 #### [address] #### VD25H #### [facility] [address] [place] [address] Basophils/100 WBC (Bld) 0.4 % Normal 0.0-2.0 [facility] Comment on above: Performed By: #### H EMDF, PT, BMP3M, PHOS3, MG3, CK3 #### [address] #### VD25H #### [place] [address] [place] [address] Eosinophils #/vol (Bld) 0.2 10*3/uL Normal 0.0-0.5 [facility] Comment on above: Performed By: #### H EMDF, PT, BMP3M, PHOS3, MG3, CK3 #### [address] #### VD25H #### [place] [address] [place] [address] Eosinophils/100 WBC (Bld) 2.1 % Normal 1.0-6.0 [facility] Comment on above: Performed By: #### H EMDF, PT, BMP3M, PHOS3, MG3, CK3 #### [address] #### VD25H #### [facility] [address] [place] [address] Erythrocyte distribution width Ratio (RBC) 13.4 % Normal 11.5-14.5 [facility] Comment on above: Performed By: #### H EMDF, PT, BMP3M, PHOS3, MG3, CK3 #### [address] #### VD25H #### [facility] [address] [place] [address] Granulocytes/100 WBC (Bld) 80.0 % Normal 40.0-80.0 [facility] Comment on above: Performed By: #### H EMDF, PT, BMP3M, PHOS3, MG3, CK3 #### [facility] [address] [place], [place] #### VD25H #### [facility] [address] [place] [address] Hematocrit Volume Fraction (Bld) 37.3 % Low 40.0-52.0 [facility] Comment on above: Performed By: #### H EMDF, PT, BMP3M, PHOS3, MG3, CK3 #### [place] [address] [place], [place] #### VD25H #### [facility] [address] [place] [address] Hemoglobin mass conc (Bld) 12.6 g/dL Low 13.0-18.0 [facility] Comment on above: Performed By: #### H EMDF, PT, BMP3M, PHOS3, MG3, CK3 #### [place] [address] [place], [place] #### VD25H #### [facility] [address] [place] [address] Lymphocytes #/vol (Bld) 1.1 10*3/uL Normal 1.0-4.3 [facility] Comment on above: Performed By: #### H EMDF, PT, BMP3M, PHOS3, MG3, CK3 #### [place] [address] [place] #### VD25H #### [facility] [address] [place] [address] Lymphocytes/100 WBC (Bld) 10.3 % Low 20.0-40.0 [facility] Comment on above: Performed By: #### H EMDF, PT, BMP3M, PHOS3, MG3, CK3 #### [place] [address] [place], [place] #### [id number] #### [facility] [address] [place] [address] MCH Entitic mass (RBC) 29.4 pg Normal 26.0-34.0 [facility] Comment on above: Performed By: #### H EMDF, PT, BMP3M, PHOS3, MG3, CK3 #### [place] [address] [place], [place] #### VD25H #### [facility] [address] [place] [address] MCHC mass conc (RBC) 33.9 % Normal 32.0-36.0 [facility] Comment on above: Performed By: #### H EMDF, PT, BMP3M, PHOS3, MG3, CK3 #### [address] #### [id number] #### [facility] [address] [place] [address] MCV Entitic volume (RBC) 86.8 fL Normal 80.0-98.0 [facility] Comment on above: Performed By: #### H EMDF, PT, BMP3M, PHOS3, MG3, CK3 #### [address] #### [id number] #### [facility] [address] [place] [address] Monocytes #/vol (Bld) 0.8 10*3/uL Normal 0.0-0.8 [facility] Comment on above: Performed By: #### H EMDF, PT, BMP3M, PHOS3, MG3, CK3 #### [address] [place], [place] #### VD25H #### [facility] [address] [place] [address] Monocytes/100 WBC (Bld) 7.2 % Normal 2.0-10.0 [facility] Comment on above: Performed By: #### H EMDF, PT, BMP3M, PHOS3, MG3, CK3 #### [address] [place], [place] #### VD25H #### [facility] [address] [place] [address] Platelet mean volume Entitic volume (Bld) 7.8 fL Normal 7.4-10.4 [facility] Comment on above: Performed By: #### H EMDF, PT, BMP3M, PHOS3, MG3, CK3 #### [address] [place], [place] #### VD25H #### [facility] [address] [place] [address] Platelets #/vol (Bld) 301 10*3/uL Normal 140-440 [facility] Comment on above: Performed By: #### H EMDF, PT, BMP3M, PHOS3, MG3, CK3 #### [address] #### VD25H #### [place] [address] [place] [address] RBC #/vol (Bld) 4.29 10*6/uL Low 4.40-5.90 [facility] Comment on above: Performed By: #### H EMDF, PT, BMP3M, PHOS3, MG3, CK3 #### [address] #### VD25H #### [place] [address] [place] [address] WBC #/vol (Bld) 10.8 10*3/uL High 3.6-10.7 [facility] Comment on above: Performed By: #### H EMDF, PT, BMP3M, PHOS3, MG3, CK3 #### [address] #### VD25H #### [place] [address] [place] [address] Arterial Blood Gaseson 07-17 CO2 molar conc 29.7 mmol/L High 23.0-27.0 [facility] Comment on above: Performed By: #### H EMDF, PT, BMP3M, PHOS3, MG3, CK3 #### [facility] [address] [place], [place] #### VD25H #### [facility] [address] [place] [address] HCO3 molar conc (Bld) 28.4 mmol/L High 21.0-25.0 [facility] Comment on above: Performed By: #### H EMDF, PT, BMP3M, PHOS3, MG3, CK3 #### [place] [address] [place], [place] #### VD25H #### [facility] [address] [place] [address] Hemoglobin mass conc (Bld) 11.1 g/dL Normal [facility] Comment on above: Performed By: #### H EMDF, PT, BMP3M, PHOS3, MG3, CK3 #### [address] #### VD25H #### [facility] [address] [place] [address] Oxygen ppres (Bld) 109.2 mm[Hg] High 80.0-100.0 [facility] Comment on above: Performed By: #### H EMDF, PT, BMP3M, PHOS3, MG3, CK3 #### [place] [address] [place], [place] #### VD25H #### [facility] [address] [place] [address] Oxygen saturation in Blood 97.8 % Normal 95.0-100.0 [facility] Comment on above: Performed By: #### H EMDF, PT, BMP3M, PHOS3, MG3, CK3 #### [address] #### VD25H #### [facility] [address] [place] [address] pCO2 39.8 mm[Hg] Normal 35.0-45.0 [facility] Comment on above: Performed By: #### H EMDF, PT, BMP3M, PHOS3, MG3, CK3 #### [facility] [address] [place], [place] #### VD25H #### [facility] [address] [place] [address] pH (Bld) 7.472 High 7.350-7.450 [facility] Comment on above: Performed By: #### H EMDF, PT, BMP3M, PHOS3, MG3, CK3 #### [place] [address] [place], [place] #### VD25H #### [facility] [address] [place] [address] Std Base Excess 4.5 mmol/L High -3.0-3.0 [facility] Comment on above: Performed By: #### H EMDF, PT, BMP3M, PHOS3, MG3, CK3 #### [place] [address] [facility], [place] #### VD25H #### [facility] [address] [place] [address] FIO2 60% Normal [facility] Comment on above: Performed By: #### H EMDF, PT, BMP3M, PHOS3, MG3, CK3 #### [facility] [address] [place] #### VD25H #### [facility] [address] [place] [address] Basic Metabolic Panelon 03- Anion gap molar conc 6 Normal [facility] Comment on above: Performed By: #### H EMDF, PT, BMP3M, PHOS3, MG3, CK3 #### [facility] [address] [facility], [place] #### VD25H #### [facility] [address] [place] [address] Calcium mass conc 8.0 mg/dL Low 8.4-10.4 [facility] Comment on above: Performed By: #### H EMDF, PT, BMP3M, PHOS3, MG3, CK3 #### [facility] [address] [place] #### VD25H #### [facility] [address] [place] [address] CO2 molar conc 31 mmol/L High 22-30 [facility] Comment on above: Performed By: #### H EMDF, PT, BMP3M, PHOS3, MG3, CK3 #### [place] [address] [place] #### VD25H #### [facility] [address] [place] [address] Glucose mass conc 107 mg/dL High 70-100 [facility] Comment on above: Performed By: #### H EMDF, PT, BMP3M, PHOS3, MG3, CK3 #### [place] [address] [facility], [place] #### VD25H #### [facility] [address] [place] [address] Urea nitrogen mass conc 22 mg/dL High 7-20 [facility] Comment on above: Performed By: #### H EMDF, PT, BMP3M, PHOS3, MG3, CK3 #### [place] [address] [facility] [place] #### VD25H #### [facility] [address] [place] [address] Creatinine mass conc 0.66 mg/dL Normal 0.52-1.25 [facility] Comment on above: Performed By: #### H EMDF, PT, BMP3M, PHOS3, MG3, CK3 #### [place] [address] [facility], [place] #### VD25H #### [facility] [address] [place] [address] GFR/1.73 sq M predicted among blacks MDRD vol rate/area (S/P/Bld) mL/min/{1.73_m2} Normal >60 [facility] Comment on above: Performed By: #### H EMDF, PT, BMP3M, PHOS3, MG3, CK3 #### [place] [address] [place] #### VD25H #### [facility] [address] [place] [address] GFR/1.73 sq M predicted among non-blacks MDRD vol rate/area (S/P/Bld) mL/min/{1.73_m2} Normal >60 [facility] Comment on above: Result Comment: Sour ce- MDRD equation with creatinine calibration to IDMS(NKDEP) eGFR not recommended for drug dose adjustment Performed By: #### H EMDF, PT, BMP3M, PHOS3, MG3, CK3 #### [address] #### VD25H #### [facility] [address] [place] [address] Chloride molar conc 105 mmol/L Normal 98-107 [facility] Comment on above: Performed By: #### H EMDF, PT, BMP3M, PHOS3, MG3, CK3 #### [address] #### VD25H #### [facility] [address] [place] [address] Potassium molar conc 3.9 mmol/L Normal 3.5-5.1 [facility] Comment on above: Performed By: #### H EMDF, PT, BMP3M, PHOS3, MG3, CK3 #### [address] #### VD25H #### [facility] [address] [place] [address] Sodium molar conc 142 mmol/L Normal 135-145 [facility] Comment on above: Performed By: #### H EMDF, PT, BMP3M, PHOS3, MG3, CK3 #### [address] #### VD25H #### [facility] [address] [place] [address] CR Abdomen APon 07-17-2018 CR Abdomen AP Patient Name: KATHYA HOOPER Diagnostic Radiology Exam Date/Time 07/17/2018 12:46:31 EDT Exam CR Abdomen AP Ordering Physician Moses CARRILLOJOYA Malave Accession Number [id number] CPT4 Codes 49034 () Reason For Exam ileus Report Abdomen: [...] AP Ordering Physician JOYA ROJAS Accession Number [id number] CPT4 Codes 84835 () Reason For Exam ileus Report Abdomen: [...] Portable Ordering Physician SALO DAVIS Accession Number [id number] CPT4 Codes 16166 () Reason For Exam picc Report CHEST [...] R Transcribed Date and Time: 07/17/2018 7:24 [facility] CR Chest Portable Patient Name: KATHYA HOOPER Diagnostic Radiology Exam Date/Time 07/17/2018 18:08:41 EDT Exam CR Chest Portable Ordering Physician SALO DAVIS Accession Number [id number] CPT4 Codes 90265 () Reason For Exam reheck line tip [...] Ordering Physician MARIA EUGENIA PEREZ Accession Number [id number] CPT4 Codes 62012 () Reason For Exam ETT placement Report [...] Abs Baso Cnt 0.0 10*3/uL Normal 0.0-0.2 [facility] Comment on above: Performed By: #### H EMDF, PT, BMP3M, PHOS3, MG3, CK3 #### [facility] [address] [place], [place] #### VD25H #### [facility] [address] [place] [address] Abs Neutrophile Cnt 8.1 10*3/uL High 1.8-7.0 [facility] Comment on above: Performed By: #### H EMDF, PT, BMP3M, PHOS3, MG3, CK3 #### [address] #### VD25H #### [facility] [address] [place] [address] Basophils/100 WBC (Bld) 0.4 % Normal 0.0-2.0 [facility] Comment on above: Performed By: #### H EMDF, PT, BMP3M, PHOS3, MG3, CK3 #### [address] #### VD25H #### [facility] [address] [place] [address] Eosinophils #/vol (Bld) 0.1 10*3/uL Normal 0.0-0.5 [facility] Comment on above: Performed By: #### H EMDF, PT, BMP3M, PHOS3, MG3, CK3 #### [address] #### VD25H #### [facility] [address] [place] [address] Eosinophils/100 WBC (Bld) 1.4 % Normal 1.0-6.0 [facility] Comment on above: Performed By: #### H EMDF, PT, BMP3M, PHOS3, MG3, CK3 #### [address] #### VD25H #### [facility] [address] [place] [address] Erythrocyte distribution width Ratio (RBC) 13.5 % Normal 11.5-14.5 [facility] Comment on above: Performed By: #### H EMDF, PT, BMP3M, PHOS3, MG3, CK3 #### [address] #### VD25H #### [facility] [address] [place] [address] Granulocytes/100 WBC (Bld) 78.6 % Normal 40.0-80.0 [facility] Comment on above: Performed By: #### H EMDF, PT, BMP3M, PHOS3, MG3, CK3 #### [address] #### VD25H #### [place] [address] [place] [address] Hematocrit Volume Fraction (Bld) 31.3 % Low 40.0-52.0 [facility] Comment on above: Performed By: #### H EMDF, PT, BMP3M, PHOS3, MG3, CK3 #### [address] #### VD25H #### [place] [address] [place] [address] Hemoglobin mass conc (Bld) 10.4 g/dL Low 13.0-18.0 [facility] Comment on above: Performed By: #### H EMDF, PT, BMP3M, PHOS3, MG3, CK3 #### [address] #### VD25H #### [facility] [address] [place] [address] Lymphocytes #/vol (Bld) 1.0 10*3/uL Normal 1.0-4.3 [facility] Comment on above: Performed By: #### H EMDF, PT, BMP3M, PHOS3, MG3, CK3 #### [address] #### VD25H #### [facility] [address] [place] [address] Lymphocytes/100 WBC (Bld) 10.0 % Low 20.0-40.0 [facility] Comment on above: Performed By: #### H EMDF, PT, BMP3M, PHOS3, MG3, CK3 #### [place] [address] [place] #### VD25H #### [facility] [address] [place] [address] MCH Entitic mass (RBC) 29.3 pg Normal 26.0-34.0 [facility] Comment on above: Performed By: #### H EMDF, PT, BMP3M, PHOS3, MG3, CK3 #### [place] [address] [place] #### VD25H #### [place] [address] [place] [address] MCHC mass conc (RBC) 33.3 % Normal 32.0-36.0 [facility] Comment on above: Performed By: #### H EMDF, PT, BMP3M, PHOS3, MG3, CK3 #### [place] [address] [place] #### VD25H #### [place] [address] [place] [address] MCV Entitic volume (RBC) 87.9 fL Normal 80.0-98.0 [facility] Comment on above: Performed By: #### H EMDF, PT, BMP3M, PHOS3, MG3, CK3 #### [place] [address] [place] #### VD25H #### [facility] [address] [place] [address] Monocytes #/vol (Bld) 1.0 10*3/uL High 0.0-0.8 [facility] Comment on above: Performed By: #### H EMDF, PT, BMP3M, PHOS3, MG3, CK3 #### [address] #### VD25H #### [facility] [address] [place] [address] Monocytes/100 WBC (Bld) 9.6 % Normal 2.0-10.0 [facility] Comment on above: Performed By: #### H EMDF, PT, BMP3M, PHOS3, MG3, CK3 #### [address] [place], [place] #### VD25H #### [facility] [address] [place] [address] Platelet mean volume Entitic volume (Bld) 7.6 fL Normal 7.4-10.4 [facility] Comment on above: Performed By: #### H EMDF, PT, BMP3M, PHOS3, MG3, CK3 #### [address] #### VD25H #### [facility] [address] [place] [address] Platelets #/vol (Bld) 307 10*3/uL Normal 140-440 [facility] Comment on above: Performed By: #### H EMDF, PT, BMP3M, PHOS3, MG3, CK3 #### [address] #### VD25H #### [facility] [address] [place] [address] RBC #/vol (Bld) 3.56 10*6/uL Low 4.40-5.90 [facility] Comment on above: Performed By: #### H EMDF, PT, BMP3M, PHOS3, MG3, CK3 #### [address] #### VD25H #### [facility] [address] [place] [address] WBC #/vol (Bld) 10.2 10*3/uL Normal 3.6-10.7 [facility] Comment on above: Performed By: #### H EMDF, PT, BMP3M, PHOS3, MG3, CK3 #### [place] [address] [place] #### VD25H #### [facility] [address] [place] [address] Basic Metabolic Panelon 06-29 Calcium mass conc 8.1 mg/dL Low 8.4-10.4 [facility] Comment on above: Performed By: #### H EMDF, PT, BMP3M, PHOS3, MG3, CK3 #### [place] [address] [place] #### VD25H #### [facility] [address] [place] [address] Anion gap molar conc 5 Normal [facility] Comment on above: Performed By: #### H EMDF, PT, BMP3M, PHOS3, MG3, CK3 #### [place] [address] [place] #### VD25H #### [facility] [address] [place] [address] CO2 molar conc 32 mmol/L High 22-30 [facility] Comment on above: Performed By: #### H EMDF, PT, BMP3M, PHOS3, MG3, CK3 #### [address] #### VD25H #### [facility] [address] [place] [address] Creatinine mass conc 0.62 mg/dL Normal 0.52-1.25 [facility] Comment on above: Performed By: #### H EMDF, PT, BMP3M, PHOS3, MG3, CK3 #### [place] [address] [facility], [place] #### VD25H #### [facility] [address] [place] [address] GFR/1.73 sq M predicted among blacks MDRD vol rate/area (S/P/Bld) mL/min/{1.73_m2} Normal >60 [facility] Comment on above: Performed By: #### H EMDF, PT, BMP3M, PHOS3, MG3, CK3 #### [place] [address] [place] #### VD25H #### [facility] [address] [place] [address] GFR/1.73 sq M predicted among non-blacks MDRD vol rate/area (S/P/Bld) mL/min/{1.73_m2} Normal >60 [facility] Comment on above: Result Comment: Sour ce- MDRD equation with creatinine calibration to IDMS(NKDEP) eGFR not recommended for drug dose adjustment Performed By: #### H EMDF, PT, BMP3M, PHOS3, MG3, CK3 #### [address] #### VD25H #### [facility] [address] [place] [address] Glucose mass conc 103 mg/dL High 70-100 [facility] Comment on above: Performed By: #### H EMDF, PT, BMP3M, PHOS3, MG3, CK3 #### [address] #### VD25H #### [facility] [address] [place] [address] Urea nitrogen mass conc 20 mg/dL Normal 7-20 [facility] Comment on above: Performed By: #### H EMDF, PT, BMP3M, PHOS3, MG3, CK3 #### [address] #### VD25H #### [facility] [address] [place] [address] Chloride molar conc 107 mmol/L Normal 98-107 [facility] Comment on above: Performed By: #### H EMDF, PT, BMP3M, PHOS3, MG3, CK3 #### [address] #### VD25H #### [facility] [address] [place] [address] Potassium molar conc 3.7 mmol/L Normal 3.5-5.1 [facility] Comment on above: Performed By: #### H EMDF, PT, BMP3M, PHOS3, MG3, CK3 #### [facility] [address] [place] [address] #### VD25H #### [facility] [address] [place] [address] Sodium molar conc 145 mmol/L Normal 135-145 [facility] Comment on above: Performed By: #### H EMDF, PT, BMP3M, PHOS3, MG3, CK3 #### [facility] [address] [place] [address] #### VD25H #### [facility] [address] [place] [address] CR Abdomen APon 07-16-2018 CR Abdomen AP Patient Name: KATHYA HOOPER Diagnostic Radiology Exam Date/Time 07/16/2018 08:00:58 EDT Exam CR Abdomen AP Ordering Physician [id number] AGUILERA Accession Number [id number] CPT4 Codes 42669 () Reason For Exam ileus Report KUB [...] Normal [facility] CR Chest Portableon 07-17-19 19 CR Chest Portable Patient Name: KATHYA HOOPER Diagnostic Radiology Exam Date/Time 07/16/2018 06:19:28 EDT Exam CR Chest Portable Ordering Physician MARIA EUGENIA PEREZ Accession Number [id number] CPT4 Codes 52371 () Reason For Exam ETT placement Report [...] Abs Baso Cnt 0.0 10*3/uL Normal 0.0-0.2 [facility] Comment on above: Performed By: #### H EMDF, PT, BMP3M, PHOS3, MG3, CK3 #### [facility] [address] [place] [address] #### VD25H #### [facility] [address] [place] [address] Abs Neutrophile Cnt 8.7 10*3/uL High 1.8-7.0 [facility] Comment on above: Performed By: #### H EMDF, PT, BMP3M, PHOS3, MG3, CK3 #### [facility] [address] [place] #### VD25H #### [facility] [address] [place] [address] Basophils/100 WBC (Bld) 0.2 % Normal 0.0-2.0 [facility] Comment on above: Performed By: #### H EMDF, PT, BMP3M, PHOS3, MG3, CK3 #### [facility] [address] [place] #### VD25H #### [facility] [address] [place] [address] Eosinophils #/vol (Bld) 0.1 10*3/uL Normal 0.0-0.5 [facility] Comment on above: Performed By: #### H EMDF, PT, BMP3M, PHOS3, MG3, CK3 #### [address] [place], [place] #### VD25H #### [facility] [address] [place] [address] Eosinophils/100 WBC (Bld) 0.7 % Low 1.0-6.0 [facility] Comment on above: Performed By: #### H EMDF, PT, BMP3M, PHOS3, MG3, CK3 #### [address] [place] #### VD25H #### [facility] [address] [place] [address] Erythrocyte distribution width Ratio (RBC) 13.7 % Normal 11.5-14.5 [facility] Comment on above: Performed By: #### H EMDF, PT, BMP3M, PHOS3, MG3, CK3 #### [address] [place] #### VD25H #### [facility] [address] [place] [address] Granulocytes/100 WBC (Bld) 83.0 % High 40.0-80.0 [facility] Comment on above: Performed By: #### H EMDF, PT, BMP3M, PHOS3, MG3, CK3 #### [address] #### VD25H #### [facility] [address] [place] [address] Hematocrit Volume Fraction (Bld) 30.3 % Low 40.0-52.0 [facility] Comment on above: Performed By: #### H EMDF, PT, BMP3M, PHOS3, MG3, CK3 #### [address] #### VD25H #### [facility] [address] [place] [address] Hemoglobin mass conc (Bld) 10.5 g/dL Low 13.0-18.0 [facility] Comment on above: Performed By: #### H EMDF, PT, BMP3M, PHOS3, MG3, CK3 #### [address] #### VD25H #### [facility] [address] [place] [address] Lymphocytes #/vol (Bld) 0.7 10*3/uL Low 1.0-4.3 [facility] Comment on above: Performed By: #### H EMDF, PT, BMP3M, PHOS3, MG3, CK3 #### [address] #### VD25H #### [facility] [address] [place] [address] Lymphocytes/100 WBC (Bld) 6.7 % Low 20.0-40.0 [facility] Comment on above: Performed By: #### H EMDF, PT, BMP3M, PHOS3, MG3, CK3 #### [address] #### VD25H #### [facility] [address] [place] [address] MCH Entitic mass (RBC) 30.2 pg Normal 26.0-34.0 [facility] Comment on above: Performed By: #### H EMDF, PT, BMP3M, PHOS3, MG3, CK3 #### [place] [address] [place] #### VD25H #### [facility] [address] [place] [address] MCHC mass conc (RBC) 34.6 % Normal 32.0-36.0 [facility] Comment on above: Performed By: #### H EMDF, PT, BMP3M, PHOS3, MG3, CK3 #### [address] [place], [place] #### VD25H #### [facility] [address] [place] [address] MCV Entitic volume (RBC) 87.3 fL Normal 80.0-98.0 [facility] Comment on above: Performed By: #### H EMDF, PT, BMP3M, PHOS3, MG3, CK3 #### [address] #### VD25H #### [facility] [address] [place] [address] Monocytes #/vol (Bld) 1.0 10*3/uL High 0.0-0.8 [facility] Comment on above: Performed By: #### H EMDF, PT, BMP3M, PHOS3, MG3, CK3 #### [address] #### VD25H #### [facility] [address] [place] [address] Monocytes/100 WBC (Bld) 9.4 % Normal 2.0-10.0 [facility] Comment on above: Performed By: #### H EMDF, PT, BMP3M, PHOS3, MG3, CK3 #### [address] #### VD25H #### [facility] [address] [place] [address] Platelet mean volume Entitic volume (Bld) 6.9 fL Low 7.4-10.4 [facility] Comment on above: Performed By: #### H EMDF, PT, BMP3M, PHOS3, MG3, CK3 #### [address] #### VD25H #### [facility] [address] [place] [address] Platelets #/vol (Bld) 254 10*3/uL Normal 140-440 [facility] Comment on above: Performed By: #### H EMDF, PT, BMP3M, PHOS3, MG3, CK3 #### [address] #### VD25H #### [facility] [address] [place] [address] RBC #/vol (Bld) 3.47 10*6/uL Low 4.40-5.90 [facility] Comment on above: Performed By: #### H EMDF, PT, BMP3M, PHOS3, MG3, CK3 #### [address] #### VD25H #### [facility] [address] [place] [address] WBC #/vol (Bld) 10.5 10*3/uL Normal 3.6-10.7 [facility] Comment on above: Performed By: #### H EMDF, PT, BMP3M, PHOS3, MG3, CK3 #### [address] #### VD25H #### [facility] [address] [place] [address] Arterial Blood Gaseson 07-15 CO2 molar conc 26.7 mmol/L Normal 23.0-27.0 [facility] Comment on above: Performed By: #### H EMDF, PT, BMP3M, PHOS3, MG3, CK3 #### [address] [address] #### VD25H #### [facility] [address] [place] [address] FIO2 50% Normal [facility] Comment on above: Performed By: #### H EMDF, PT, BMP3M, PHOS3, MG3, CK3 #### [facility] [address] [place], [place] #### VD25H #### [facility] [address] [place] [address] HCO3 molar conc (Bld) 25.7 mmol/L High 21.0-25.0 [facility] Comment on above: Performed By: #### H EMDF, PT, BMP3M, PHOS3, MG3, CK3 #### [place] [address] [place], [place] #### VD25H #### [place] [address] [place] [address] Hemoglobin mass conc (Bld) 12.5 g/dL Normal [facility] Comment on above: Performed By: #### H EMDF, PT, BMP3M, PHOS3, MG3, CK3 #### [address] #### VD25H #### [facility] [address] [place] [address] Oxygen ppres (Bld) 90.4 mm[Hg] Normal 80.0-100.0 [facility] Comment on above: Performed By: #### H EMDF, PT, BMP3M, PHOS3, MG3, CK3 #### [address] [place], [place] #### VD25H #### [facility] [address] [place] [address] Oxygen saturation in Blood 96.8 % Normal 95.0-100.0 [facility] Comment on above: Performed By: #### H EMDF, PT, BMP3M, PHOS3, MG3, CK3 #### [place] [address] [place], [place] #### VD25H #### [place] [address] [place] [address] pCO2 33.4 mm[Hg] Low 35.0-45.0 [facility] Comment on above: Performed By: #### H EMDF, PT, BMP3M, PHOS3, MG3, CK3 #### [place] [address] [address] [place], [place] #### VD25H #### [facility] [address] [place] [address] pH (Bld) 7.504 High 7.350-7.450 [facility] Comment on above: Performed By: #### H EMDF, PT, BMP3M, PHOS3, MG3, CK3 #### [address] [place], [place] #### VD25H #### [place] [address] [place] [address] Std Base Excess 2.9 mmol/L Normal -3.0-3.0 [facility] Comment on above: Performed By: #### H EMDF, PT, BMP3M, PHOS3, MG3, CK3 #### [address] #### VD25H #### [address] [place] [address] Basic Metabolic Panelon 06-29 Anion gap molar conc 8 Normal [facility] Comment on above: Performed By: #### H EMDF, PT, BMP3M, PHOS3, MG3, CK3 #### [address] [place], [place] #### VD25H #### [facility] [address] [place] [address] Calcium mass conc 8.6 mg/dL Normal 8.4-10.4 [facility] Comment on above: Performed By: #### H EMDF, PT, BMP3M, PHOS3, MG3, CK3 #### [address] #### VD25H #### [place] [address] [place] [address] CO2 molar conc 29 mmol/L Normal 22-30 [facility] Comment on above: Performed By: #### H EMDF, PT, BMP3M, PHOS3, MG3, CK3 #### [facility] [address] [place] [address] #### VD25H #### [facility] [address] [place] [address] Glucose mass conc 119 mg/dL High 70-100 [facility] Comment on above: Performed By: #### H EMDF, PT, BMP3M, PHOS3, MG3, CK3 #### [address] #### VD25H #### [place] [address] [place] [address] Urea nitrogen mass conc 23 mg/dL High 7-20 [facility] Comment on above: Performed By: #### H EMDF, PT, BMP3M, PHOS3, MG3, CK3 #### [address] #### VD25H #### [facility] [address] [place] [address] Creatinine mass conc 0.73 mg/dL Normal 0.52-1.25 [facility] Comment on above: Performed By: #### H EMDF, PT, BMP3M, PHOS3, MG3, CK3 #### [address] #### VD25H #### [facility] [address] [place] [address] GFR/1.73 sq M predicted among blacks MDRD vol rate/area (S/P/Bld) mL/min/{1.73_m2} Normal >60 [facility] Comment on above: Performed By: #### H EMDF, PT, BMP3M, PHOS3, MG3, CK3 #### [address] #### VD25H #### [facility] [address] [place] [address] GFR/1.73 sq M predicted among non-blacks MDRD vol rate/area (S/P/Bld) mL/min/{1.73_m2} Normal >60 [facility] Comment on above: Result Comment: Sour ce- MDRD equation with creatinine calibration to IDMS(NKDEP) eGFR not recommended for drug dose adjustment Performed By: #### H EMDF, PT, BMP3M, PHOS3, MG3, CK3 #### [address] #### VD25H #### [facility] [address] [place] [address] Potassium molar conc 4.1 mmol/L Normal 3.5-5.1 [facility] Comment on above: Performed By: #### H EMDF, PT, BMP3M, PHOS3, MG3, CK3 #### [address] #### VD25H #### [facility] [address] [place] [address] Sodium molar conc 144 mmol/L Normal 135-145 [facility] Comment on above: Performed By: #### H EMDF, PT, BMP3M, PHOS3, MG3, CK3 #### [address] #### VD25H #### [facility] [address] [place] [address] Chloride molar conc 107 mmol/L Normal 98-107 [facility] Comment on above: Performed By: #### H EMDF, PT, BMP3M, PHOS3, MG3, CK3 #### [address] #### VD25H #### [facility] [address] [place] [address] CR Abdomen APon 07-15-2018 CR Abdomen AP Patient Name: KATHYA HOOPER [facility]: [id number] Diagnostic Radiology Exam Date/Time 07/15/2018 09:25:44 EDT Exam CR Abdomen AP Ordering Physician [id number] CARRILLOAnanda JOYA Accession Number [id number] CPT4 Codes 45248 () Reason For Exam ileus Report EXAMINATION: [...] Normal [facility] CR Chest Portableon 07-16-19 CR Chest Portable Patient Name: KATHYA HOOPER Diagnostic Radiology Exam Date/Time 07/15/2018 06:00:00 EDT Exam CR Chest Portable Ordering Physician MARIA EUGENIA PEREZ Accession Number [id number] CPT4 Codes 11861 () Reason For Exam ETT placement Report [...] Time: 07/15/2018 9:16 am Signed by: MD MAGGI, KESHAWN Pineda Transcribed Date and Time: 07/15/2018 9:14 Normal [...] PHOS3, MG3, CK3 #### [facility] [address], [place] #### VD25H #### [facility] [address] [place] [address] Hemogram w/ Autodiffon 07-15 Abs Baso Cnt 0.0 10*3/uL Normal 0.0-0.2 [facility] Comment on above: Performed By: #### H EMDF, PT, BMP3M, PHOS3, MG3, CK3 #### [facility] [address], [place] #### VD25H #### [facility] [address] [place] [address] Abs Neutrophile Cnt 13.2 10*3/uL High 1.8-7.0 [facility] Comment on above: Performed By: #### H EMDF, PT, BMP3M, PHOS3, MG3, CK3 #### [address] #### VD25H #### [facility] [address] [place] [address] Basophils/100 WBC (Bld) 0.2 % Normal 0.0-2.0 [facility] Comment on above: Performed By: #### H EMDF, PT, BMP3M, PHOS3, MG3, CK3 #### [place] [address] [place], [place] #### VD25H #### [facility] [address] [place] [address] Eosinophils #/vol (Bld) 0.0 10*3/uL Normal 0.0-0.5 [facility] Comment on above: Performed By: #### H EMDF, PT, BMP3M, PHOS3, MG3, CK3 #### [place] [address] [place] #### VD25H #### [facility] [address] [place] [address] Eosinophils/100 WBC (Bld) 0.1 % Low 1.0-6.0 [facility] Comment on above: Performed By: #### H EMDF, PT, BMP3M, PHOS3, MG3, CK3 #### [place] [address] [place] #### VD25H #### [facility] [address] [place] [address] Erythrocyte distribution width Ratio (RBC) 13.9 % Normal 11.5-14.5 [facility] Comment on above: Performed By: #### H EMDF, PT, BMP3M, PHOS3, MG3, CK3 #### [place] [address] [place] #### VD25H #### [facility] [address] [place] [address] Granulocytes/100 WBC (Bld) 88.1 % High 40.0-80.0 [facility] Comment on above: Performed By: #### H EMDF, PT, BMP3M, PHOS3, MG3, CK3 #### [address] #### VD25H #### [facility] [address] [place] [address] Hematocrit Volume Fraction (Bld) 35.3 % Low 40.0-52.0 [facility] Comment on above: Performed By: #### H EMDF, PT, BMP3M, PHOS3, MG3, CK3 #### [address] [place], [place] #### VD25H #### [facility] [address] [place] [address] Hemoglobin mass conc (Bld) 11.9 g/dL Low 13.0-18.0 [facility] Comment on above: Performed By: #### H EMDF, PT, BMP3M, PHOS3, MG3, CK3 #### [address] #### VD25H #### [facility] [address] [place] [address] Lymphocytes #/vol (Bld) 0.8 10*3/uL Low 1.0-4.3 [facility] Comment on above: Performed By: #### H EMDF, PT, BMP3M, PHOS3, MG3, CK3 #### [address] #### VD25H #### [facility] [address] [place] [address] Lymphocytes/100 WBC (Bld) 5.0 % Low 20.0-40.0 [facility] Comment on above: Performed By: #### H EMDF, PT, BMP3M, PHOS3, MG3, CK3 #### [address] #### VD25H #### [facility] [address] [place] [address] MCH Entitic mass (RBC) 29.5 pg Normal 26.0-34.0 [facility] Comment on above: Performed By: #### H EMDF, PT, BMP3M, PHOS3, MG3, CK3 #### [address] #### VD25H #### [facility] [address] [place] [address] MCHC mass conc (RBC) 33.8 % Normal 32.0-36.0 [facility] Comment on above: Performed By: #### H EMDF, PT, BMP3M, PHOS3, MG3, CK3 #### [place] [address] [place] #### VD25H #### [facility] [address] [place] [address] MCV Entitic volume (RBC) 87.2 fL Normal 80.0-98.0 [facility] Comment on above: Performed By: #### H EMDF, PT, BMP3M, PHOS3, MG3, CK3 #### [address] #### VD25H #### [facility] [address] [place] [address] Monocytes #/vol (Bld) 1.0 10*3/uL High 0.0-0.8 [facility] Comment on above: Performed By: #### H EMDF, PT, BMP3M, PHOS3, MG3, CK3 #### [address] #### VD25H #### [facility] [address] [place] [address] Monocytes/100 WBC (Bld) 6.6 % Normal 2.0-10.0 [facility] Comment on above: Performed By: #### H EMDF, PT, BMP3M, PHOS3, MG3, CK3 #### [address] [place], [place] #### VD25H #### [facility] [address] [place] [address] Platelet mean volume Entitic volume (Bld) 7.9 fL Normal 7.4-10.4 [facility] Comment on above: Performed By: #### H EMDF, PT, BMP3M, PHOS3, MG3, CK3 #### [address] #### VD25H #### [facility] [address] [place] [address] Platelets #/vol (Bld) 319 10*3/uL Normal 140-440 [facility] Comment on above: Performed By: #### H EMDF, PT, BMP3M, PHOS3, MG3, CK3 #### [place] [address] [place], [place] #### VD25H #### [place] [address] [place] [address] RBC #/vol (Bld) 4.05 10*6/uL Low 4.40-5.90 [facility] Comment on above: Performed By: #### H EMDF, PT, BMP3M, PHOS3, MG3, CK3 #### [address] #### VD25H #### [place] [address] [place] [address] WBC #/vol (Bld) 15.0 10*3/uL High 3.6-10.7 [facility] Comment on above: Performed By: #### H EMDF, PT, BMP3M, PHOS3, MG3, CK3 #### [address] #### VD25H #### [place] [address] [place] [address] Basic Metabolic Panelon - Anion gap molar conc 9 Normal [facility] Comment on above: Performed By: #### H EMDF, PT, BMP3M, PHOS3, MG3, CK3 #### [address] #### VD25H #### [place] [address] [place] [address] Calcium mass conc 7.6 mg/dL Low 8.4-10.4 [facility] Comment on above: Performed By: #### H EMDF, PT, BMP3M, PHOS3, MG3, CK3 #### [address] #### VD25H #### [facility] [address] [place] [address] CO2 molar conc 26 mmol/L Normal 22-30 [facility] Comment on above: Performed By: #### H EMDF, PT, BMP3M, PHOS3, MG3, CK3 #### [address] #### VD25H #### [facility] [address] [place] [address] Glucose mass conc 148 mg/dL High 70-100 [facility] Comment on above: Performed By: #### H EMDF, PT, BMP3M, PHOS3, MG3, CK3 #### [address] #### VD25H #### [place] [address] [place] [address] Urea nitrogen mass conc 16 mg/dL Normal 7-20 [facility] Comment on above: Performed By: #### H EMDF, PT, BMP3M, PHOS3, MG3, CK3 #### [address] #### VD25H #### [facility] [address] [place] [address] Creatinine mass conc 0.62 mg/dL Normal 0.52-1.25 [facility] Comment on above: Performed By: #### H EMDF, PT, BMP3M, PHOS3, MG3, CK3 #### [address] #### VD25H #### [facility] [address] [place] [address] GFR/1.73 sq M predicted among blacks MDRD vol rate/area (S/P/Bld) mL/min/{1.73_m2} Normal >60 [facility] Comment on above: Performed By: #### H EMDF, PT, BMP3M, PHOS3, MG3, CK3 #### [address] #### VD25H #### [facility] [address] [place] [address] GFR/1.73 sq M predicted among non-blacks MDRD vol rate/area (S/P/Bld) mL/min/{1.73_m2} Normal >60 [facility] Comment on above: Result Comment: Sour ce- MDRD equation with creatinine calibration to IDMS(NKDEP) eGFR not recommended for drug dose adjustment Performed By: #### H EMDF, PT, BMP3M, PHOS3, MG3, CK3 #### [facility] [address] [place], [place] #### VD25H #### [facility] [address] [place] [address] Potassium molar conc 4.5 mmol/L Normal 3.5-5.1 [facility] Comment on above: Performed By: #### H EMDF, PT, BMP3M, PHOS3, MG3, CK3 #### [facility] [address] [place] #### VD25H #### [facility] [address] [place] [address] Sodium molar conc 137 mmol/L Normal 135-145 [facility] Comment on above: Performed By: #### H EMDF, PT, BMP3M, PHOS3, MG3, CK3 #### [facility] [address] [place] #### VD25H #### [facility] [address] [place] [address] Chloride molar conc 103 mmol/L Normal 98-107 [facility] Comment on above: Performed By: #### H EMDF, PT, BMP3M, PHOS3, MG3, CK3 #### [facility] [address] [place], [place] #### VD25H #### [facility] [address] [place] [address] CR Abdomen APon 07-14-2018 CR Abdomen AP Patient Name: KATHYA HOOPER Diagnostic Radiology Exam Date/Time 07/14/2018 19:15:43 EDT Exam CR Abdomen AP Ordering Physician JOYA ROJAS Accession Number [id number] CPT4 Codes 00996 () Reason For Exam Distended with emesis [...] Normal [facility] CR Chest Portableon 07-15-19 CR Chest Portable Patient Name: KATHYA HOOPER Diagnostic Radiology Exam Date/Time 07/14/2018 06:53:29 EDT Exam CR Chest Portable Ordering Physician MARIA EUGENIA PEREZ Accession Number [id number] CPT4 Codes 71714 () Reason For Exam ETT placement Report [...] Abs Baso Cnt 0.0 10*3/uL Normal 0.0-0.2 [facility] Comment on above: Performed By: #### H EMDF, PT, BMP3M, PHOS3, MG3, CK3 #### [facility] [address] [place], [place] #### VD25H #### [facility] [address] [place] [address] Abs Neutrophile Cnt 11.7 10*3/uL High 1.8-7.0 [facility] Comment on above: Performed By: #### H EMDF, PT, BMP3M, PHOS3, MG3, CK3 #### [facility] [address], [place] #### VD25H #### [facility] [address] [place] [address] Basophils/100 WBC (Bld) 0.3 % Normal 0.0-2.0 [facility] Comment on above: Performed By: #### H EMDF, PT, BMP3M, PHOS3, MG3, CK3 #### [address] #### VD25H #### [facility] [address] [place] [address] Eosinophils #/vol (Bld) 0.0 10*3/uL Normal 0.0-0.5 [facility] Comment on above: Performed By: #### H EMDF, PT, BMP3M, PHOS3, MG3, CK3 #### [address] #### VD25H #### [facility] [address] [place] [address] Eosinophils/100 WBC (Bld) 0.1 % Low 1.0-6.0 [facility] Comment on above: Performed By: #### H EMDF, PT, BMP3M, PHOS3, MG3, CK3 #### [facility] [address] [place], [place] #### VD25H #### [facility] [address] [place] [address] Erythrocyte distribution width Ratio (RBC) 13.8 % Normal 11.5-14.5 [facility] Comment on above: Performed By: #### H EMDF, PT, BMP3M, PHOS3, MG3, CK3 #### [address] #### VD25H #### [facility] [address] [place] [address] Granulocytes/100 WBC (Bld) 89.1 % High 40.0-80.0 [facility] Comment on above: Performed By: #### H EMDF, PT, BMP3M, PHOS3, MG3, CK3 #### [address] #### VD25H #### [facility] [address] [place] [address] Hematocrit Volume Fraction (Bld) 33.8 % Low 40.0-52.0 [facility] Comment on above: Performed By: #### H EMDF, PT, BMP3M, PHOS3, MG3, CK3 #### [address] #### VD25H #### [facility] [address] [place] [address] Hemoglobin mass conc (Bld) 11.5 g/dL Low 13.0-18.0 [facility] Comment on above: Performed By: #### H EMDF, PT, BMP3M, PHOS3, MG3, CK3 #### [address] #### VD25H #### [facility] [address] [place] [address] Lymphocytes #/vol (Bld) 0.6 10*3/uL Low 1.0-4.3 [facility] Comment on above: Performed By: #### H EMDF, PT, BMP3M, PHOS3, MG3, CK3 #### [address] #### VD25H #### [facility] [address] [place] [address] Lymphocytes/100 WBC (Bld) 4.5 % Low 20.0-40.0 [facility] Comment on above: Performed By: #### H EMDF, PT, BMP3M, PHOS3, MG3, CK3 #### [address] #### VD25H #### [facility] [address] [place] [address] MCH Entitic mass (RBC) 29.6 pg Normal 26.0-34.0 [facility] Comment on above: Performed By: #### H EMDF, PT, BMP3M, PHOS3, MG3, CK3 #### [address] #### VD25H #### [facility] [address] [place] [address] MCHC mass conc (RBC) 33.9 % Normal 32.0-36.0 [facility] Comment on above: Performed By: #### H EMDF, PT, BMP3M, PHOS3, MG3, CK3 #### [address] #### VD25H #### [facility] [address] [place] [address] MCV Entitic volume (RBC) 87.3 fL Normal 80.0-98.0 [facility] Comment on above: Performed By: #### H EMDF, PT, BMP3M, PHOS3, MG3, CK3 #### [address] #### VD25H #### [facility] [address] [place] [address] Monocytes #/vol (Bld) 0.8 10*3/uL Normal 0.0-0.8 [facility] Comment on above: Performed By: #### H EMDF, PT, BMP3M, PHOS3, MG3, CK3 #### [place] [address] [place], [place] #### VD25H #### [facility] [address] [place] [address] Monocytes/100 WBC (Bld) 6.0 % Normal 2.0-10.0 [facility] Comment on above: Performed By: #### H EMDF, PT, BMP3M, PHOS3, MG3, CK3 #### [address] #### VD25H #### [place] [address] [place] [address] Platelet mean volume Entitic volume (Bld) 8.1 fL Normal 7.4-10.4 [facility] Comment on above: Performed By: #### H EMDF, PT, BMP3M, PHOS3, MG3, CK3 #### [address] #### VD25H #### [facility] [address] [place] [address] Platelets #/vol (Bld) 196 10*3/uL Normal 140-440 [facility] Comment on above: Performed By: #### H EMDF, PT, BMP3M, PHOS3, MG3, CK3 #### [address] #### VD25H #### [facility] [address] [place] [address] RBC #/vol (Bld) 3.87 10*6/uL Low 4.40-5.90 [facility] Comment on above: Performed By: #### H EMDF, PT, BMP3M, PHOS3, MG3, CK3 #### [address] #### VD25H #### [facility] [address] [place] [address] WBC #/vol (Bld) 13.2 10*3/uL High 3.6-10.7 [facility] Comment on above: Performed By: #### H EMDF, PT, BMP3M, PHOS3, MG3, CK3 #### [place] [address] [place], [place] #### VD25H #### [facility] [address] [place] [address] Add on test from [facility]on 07-13 Add on test from [facility] Rejected [facility] Comment on above: Result Comment: No s pecimen available for addon. Performed By: #### H EMDF, PT, BMP3M, PHOS3, MG3, CK3 #### [place] [address] [place], [place] #### VD25H #### [facility] [address] [place] [address] Arterial Blood Gaseson 07-13 CO2 molar conc 25.6 mmol/L Normal 23.0-27.0 [facility] Comment on above: Performed By: #### H EMDF, PT, BMP3M, PHOS3, MG3, CK3 #### [place] [address] [place] #### VD25H #### [facility] [address] [place] [address] HCO3 molar conc (Bld) 24.5 mmol/L Normal 21.0-25.0 [facility] Comment on above: Performed By: #### H EMDF, PT, BMP3M, PHOS3, MG3, CK3 #### [place] [address] [place], [place] #### VD25H #### [facility] [address] [place] [address] Hemoglobin mass conc (Bld) 9.7 g/dL Normal ScreenOnly [facility] Comment on above: Performed By: #### H EMDF, PT, BMP3M, PHOS3, MG3, CK3 #### [address] #### VD25H #### [facility] [address] [place] [address] Oxygen ppres (Bld) 99.9 mm[Hg] Normal 80.0-100.0 [facility] Comment on above: Performed By: #### H EMDF, PT, BMP3M, PHOS3, MG3, CK3 #### [address] #### VD25H #### [facility] [address] [place] [address] Oxygen saturation in Blood 97.5 % Normal 95.0-100.0 [facility] Comment on above: Performed By: #### H EMDF, PT, BMP3M, PHOS3, MG3, CK3 #### [address] #### VD25H #### [facility] [address] [place] [address] pCO2 36.0 mm[Hg] Normal 35.0-45.0 [facility] Comment on above: Performed By: #### H EMDF, PT, BMP3M, PHOS3, MG3, CK3 #### [address] #### VD25H #### [facility] [address] [place] [address] pH (Bld) 7.450 Normal 7.350-7.450 [facility] Comment on above: Performed By: #### H EMDF, PT, BMP3M, PHOS3, MG3, CK3 #### [address] #### VD25H #### [facility] [address] [place] [address] Std Base Excess 0.6 mmol/L Normal -3.0-3.0 [facility] Comment on above: Performed By: #### H EMDF, PT, BMP3M, PHOS3, MG3, CK3 #### [place] [address] [place], [place] #### VD25H #### [facility] [address] [place] [address] FIO2 .50 Normal [facility] Comment on above: Performed By: #### H EMDF, PT, BMP3M, PHOS3, MG3, CK3 #### [place] [address] [place], [place] #### VD25H #### [facility] [address] [place] [address] Basic Metabolic Panelon 06-29 Calcium mass conc 7.6 mg/dL Low 8.4-10.4 [facility] Comment on above: Performed By: #### H EMDF, PT, BMP3M, PHOS3, MG3, CK3 #### [place] [address] [place], [place] #### VD25H #### [facility] [address] [place] [address] Glucose mass conc 120 mg/dL High 70-100 [facility] Comment on above: Performed By: #### H EMDF, PT, BMP3M, PHOS3, MG3, CK3 #### [address] #### VD25H #### [facility] [address] [place] [address] Anion gap molar conc 7 Normal [facility] Comment on above: Performed By: #### H EMDF, PT, BMP3M, PHOS3, MG3, CK3 #### [address] #### VD25H #### [facility] [address] [place] [address] CO2 molar conc 27 mmol/L Normal 22-30 [facility] Comment on above: Performed By: #### H EMDF, PT, BMP3M, PHOS3, MG3, CK3 #### [facility] [address] [place], [place] #### VD25H #### [facility] [address] [place] [address] Creatinine mass conc 0.62 mg/dL Normal 0.52-1.25 [facility] Comment on above: Performed By: #### H EMDF, PT, BMP3M, PHOS3, MG3, CK3 #### [place] [address] [place], [place] #### VD25H #### [facility] [address] [place] [address] GFR/1.73 sq M predicted among blacks MDRD vol rate/area (S/P/Bld) mL/min/{1.73_m2} Normal >60 [facility] Comment on above: Performed By: #### H EMDF, PT, BMP3M, PHOS3, MG3, CK3 #### [address] #### VD25H #### [place] [address] [place] [address] GFR/1.73 sq M predicted among non-blacks MDRD vol rate/area (S/P/Bld) mL/min/{1.73_m2} Normal >60 [facility] Comment on above: Result Comment: Sour ce- MDRD equation with creatinine calibration to IDMS(NKDEP) eGFR not recommended for drug dose adjustment Performed By: #### H EMDF, PT, BMP3M, PHOS3, MG3, CK3 #### [address] #### VD25H #### [facility] [address] [place] [address] Urea nitrogen mass conc 17 mg/dL Normal 7-20 [facility] Comment on above: Performed By: #### H EMDF, PT, BMP3M, PHOS3, MG3, CK3 #### [address] #### VD25H #### [facility] [address] [place] [address] Chloride molar conc 105 mmol/L Normal 98-107 [facility] Comment on above: Performed By: #### H EMDF, PT, BMP3M, PHOS3, MG3, CK3 #### [facility] [address] [place] [address] #### VD25H #### [facility] [address] [place] [address] Potassium molar conc 3.8 mmol/L Normal 3.5-5.1 [facility] Comment on above: Performed By: #### H EMDF, PT, BMP3M, PHOS3, MG3, CK3 #### [facility] [address] [place], [place] #### VD25H #### [facility] [address] [place] [address] Sodium molar conc 139 mmol/L Normal 135-145 [facility] Comment on above: Performed By: #### H EMDF, PT, BMP3M, PHOS3, MG3, CK3 #### [facility] [address] [place], [place] #### VD25H #### [facility] [address] [place] [address] CR Chest Portableon 07-14-19 19 CR Chest Portable Patient Name: KATHYA HOOPER Diagnostic Radiology Exam Date/Time 07/13/2018 06:05:45 EDT Exam CR Chest Portable Ordering Physician MARIA EUGENIA PEREZ Accession Number [id number] CPT4 Codes 80481 () Reason For Exam ETT placement Report [...] EMDF, PT, BMP3M, PHOS3, MG3, CK3 #### [address] #### VD25H #### [facility] [address] [place] [address] pH, Ionized Calcium 7.40 Normal 7.31-7.46 [facility] Comment on above: Performed By: #### H EMDF, PT, BMP3M, PHOS3, MG3, CK3 #### [address] #### VD25H #### [facility] [address] [place] [address] Hemogram w/ Autodiffon 07-13 Abs Baso Cnt 0.0 10*3/uL Normal 0.0-0.2 [facility] Comment on above: Performed By: #### H EMDF, PT, BMP3M, PHOS3, MG3, CK3 #### [address] #### VD25H #### [facility] [address] [place] [address] Abs Neutrophile Cnt 11.2 10*3/uL High 1.8-7.0 [facility] Comment on above: Performed By: #### H EMDF, PT, BMP3M, PHOS3, MG3, CK3 #### [facility] [address] [place], [place] #### VD25H #### [facility] [address] [place] [address] Basophils/100 WBC (Bld) 0.3 % Normal 0.0-2.0 S [facility] Comment on above: Performed By: #### H EMDF, PT, BMP3M, PHOS3, MG3, CK3 #### [place] [address] [place], [place] #### VD25H #### [facility] [address] [place] [address] Eosinophils #/vol (Bld) 0.2 10*3/uL Normal 0.0-0.5 [facility] Comment on above: Performed By: #### H EMDF, PT, BMP3M, PHOS3, MG3, CK3 #### [address] #### VD25H #### [facility] [address] [place] [address] Eosinophils/100 WBC (Bld) 1.1 % Normal 1.0-6.0 [facility] Comment on above: Performed By: #### H EMDF, PT, BMP3M, PHOS3, MG3, CK3 #### [address] #### VD25H #### [facility] [address] [place] [address] Erythrocyte distribution width Ratio (RBC) 13.9 % Normal 11.5-14.5 [facility] Comment on above: Performed By: #### H EMDF, PT, BMP3M, PHOS3, MG3, CK3 #### [address] #### VD25H #### [facility] [address] [place] [address] Granulocytes/100 WBC (Bld) 82.2 % High 40.0-80.0 [facility] Comment on above: Performed By: #### H EMDF, PT, BMP3M, PHOS3, MG3, CK3 #### [facility] [address], [place] #### VD25H #### [facility] [address] [place] [address] Hematocrit Volume Fraction (Bld) 36.7 % Low 40.0-52.0 [facility] Comment on above: Performed By: #### H EMDF, PT, BMP3M, PHOS3, MG3, CK3 #### [address] #### VD25H #### [facility] [address] [place] [address] Hemoglobin mass conc (Bld) 12.6 g/dL Low 13.0-18.0 [facility] Comment on above: Performed By: #### H EMDF, PT, BMP3M, PHOS3, MG3, CK3 #### [address] #### VD25H #### [facility] [address] [place] [address] Lymphocytes #/vol (Bld) 1.1 10*3/uL Normal 1.0-4.3 [facility] Comment on above: Performed By: #### H EMDF, PT, BMP3M, PHOS3, MG3, CK3 #### [address] #### VD25H #### [facility] [address] [place] [address] Lymphocytes/100 WBC (Bld) 8.2 % Low 20.0-40.0 [facility] Comment on above: Performed By: #### H EMDF, PT, BMP3M, PHOS3, MG3, CK3 #### [address] #### VD25H #### [facility] [address] [place] [address] MCH Entitic mass (RBC) 29.6 pg Normal 26.0-34.0 [facility] Comment on above: Performed By: #### H EMDF, PT, BMP3M, PHOS3, MG3, CK3 #### [facility] [address] [place], [place] #### VD25H #### [facility] [address] [place] [address] MCHC mass conc (RBC) 34.4 % Normal 32.0-36.0 [facility] Comment on above: Performed By: #### H EMDF, PT, BMP3M, PHOS3, MG3, CK3 #### [place] [address] [place], [place] #### VD25H #### [place] [address] [place] [address] MCV Entitic volume (RBC) 86.2 fL Normal 80.0-98.0 [facility] Comment on above: Performed By: #### H EMDF, PT, BMP3M, PHOS3, MG3, CK3 #### [place] [address] [place], [place] #### VD25H #### [facility] [address] [place] [address] Monocytes #/vol (Bld) 1.1 10*3/uL High 0.0-0.8 [facility] Comment on above: Performed By: #### H EMDF, PT, BMP3M, PHOS3, MG3, CK3 #### [place] [address] [place] #### VD25H #### [facility] [address] [place] [address] Monocytes/100 WBC (Bld) 8.2 % Normal 2.0-10.0 [facility] Comment on above: Performed By: #### H EMDF, PT, BMP3M, PHOS3, MG3, CK3 #### [address] [address] [place], [place] #### VD25H #### [facility] [address] [place] [address] Platelet mean volume Entitic volume (Bld) 8.1 fL Normal 7.4-10.4 [facility] Comment on above: Performed By: #### H EMDF, PT, BMP3M, PHOS3, MG3, CK3 #### [address] #### VD25H #### [place] [address] [place] [address] Platelets #/vol (Bld) 194 10*3/uL Normal 140-440 [facility] Comment on above: Performed By: #### H EMDF, PT, BMP3M, PHOS3, MG3, CK3 #### [address] #### VD25H #### [place] [address] [place] [address] RBC #/vol (Bld) 4.26 10*6/uL Low 4.40-5.90 [facility] Comment on above: Performed By: #### H EMDF, PT, BMP3M, PHOS3, MG3, CK3 #### [address] #### VD25H #### [place] [address] [place] [address] WBC #/vol (Bld) 13.7 10*3/uL High 3.6-10.7 [facility] Comment on above: Performed By: #### H EMDF, PT, BMP3M, PHOS3, MG3, CK3 #### [address] #### VD25H #### [place] [address] [place] [address] Arterial Blood Gaseson 07-12 CO2 molar conc 26.4 mmol/L Normal 23.0-27.0 [facility] Comment on above: Performed By: #### H EMDF, PT, BMP3M, PHOS3, MG3, CK3 #### [address] #### VD25H #### [facility] [address] [place] [address] HCO3 molar conc (Bld) 25.2 mmol/L High 21.0-25.0 [facility] Comment on above: Performed By: #### H EMDF, PT, BMP3M, PHOS3, MG3, CK3 #### [address] [place], [place] #### VD25H #### [facility] [address] [place] [address] Hemoglobin mass conc (Bld) 13.9 g/dL Normal ScreenOnly [facility] Comment on above: Performed By: #### H EMDF, PT, BMP3M, PHOS3, MG3, CK3 #### [address] #### VD25H #### [place] [address] [place] [address] Oxygen ppres (Bld) 83.9 mm[Hg] Normal 80.0-100.0 [facility] Comment on above: Performed By: #### H EMDF, PT, BMP3M, PHOS3, MG3, CK3 #### [address] #### VD25H #### [facility] [address] [place] [address] Oxygen saturation in Blood 96.3 % Normal 95.0-100.0 [facility] Comment on above: Performed By: #### H EMDF, PT, BMP3M, PHOS3, MG3, CK3 #### [address] #### VD25H #### [facility] [address] [place] [address] pCO2 38.2 mm[Hg] Normal 35.0-45.0 [facility] Comment on above: Performed By: #### H EMDF, PT, BMP3M, PHOS3, MG3, CK3 #### [facility] [address] [place], [place] #### VD25H #### [facility] [address] [place] [address] pH (Bld) 7.437 Normal 7.350-7.450 [facility] Comment on above: Performed By: #### H EMDF, PT, BMP3M, PHOS3, MG3, CK3 #### [place] [address] [facility], [place] #### VD25H #### [facility] [address] [place] [address] Std Base Excess 1.1 mmol/L Normal -3.0-3.0 [facility] Comment on above: Performed By: #### H EMDF, PT, BMP3M, PHOS3, MG3, CK3 #### [address] #### VD25H #### [facility] [address] [place] [address] FIO2 50% Normal [facility] Comment on above: Performed By: #### H EMDF, PT, BMP3M, PHOS3, MG3, CK3 #### [address], [place] #### VD25H #### [facility] [address] [place] [address] CO2 molar conc 27.2 mmol/L High 23.0-27.0 [facility] Comment on above: Performed By: #### H EMDF, PT, BMP3M, PHOS3, MG3, CK3 #### [address] [facility], [place] #### VD25H #### [facility] [address] [place] [address] HCO3 molar conc (Bld) 26.1 mmol/L High 21.0-25.0 [facility] Comment on above: Performed By: #### H EMDF, PT, BMP3M, PHOS3, MG3, CK3 #### [place] [address] [place] #### VD25H #### [facility] [address] [place] [address] Hemoglobin mass conc (Bld) 14.7 g/dL Normal [facility]Only [facility] Comment on above: Performed By: #### H EMDF, PT, BMP3M, PHOS3, MG3, CK3 #### [place] [address] [place] #### VD25H #### [facility] [address] [place] [address] Oxygen ppres (Bld) 125.7 mm[Hg] High 80.0-100.0 [facility] Comment on above: Performed By: #### H EMDF, PT, BMP3M, PHOS3, MG3, CK3 #### [address] [place] #### VD25H #### [facility] [address] [place] [address] Oxygen saturation in Blood 98.6 % Normal 95.0-100.0 [facility] Comment on above: Performed By: #### H EMDF, PT, BMP3M, PHOS3, MG3, CK3 #### [place] [address] [place] #### VD25H #### [facility] [address] [place] [address] pCO2 37.5 mm[Hg] Normal 35.0-45.0 [facility] Comment on above: Performed By: #### H EMDF, PT, BMP3M, PHOS3, MG3, CK3 #### [place] [address] [facility] #### VD25H #### [facility] [address] [place] [address] pH (Bld) 7.460 High 7.350-7.450 [facility] Comment on above: Performed By: #### H EMDF, PT, BMP3M, PHOS3, MG3, CK3 #### [place] [address] [place] #### VD25H #### [facility] [address] [place] [address] Std Base Excess 2.4 mmol/L Normal -3.0-3.0 [facility] Comment on above: Performed By: #### H EMDF, PT, BMP3M, PHOS3, MG3, CK3 #### [place] [address] [place] #### VD25H #### [facility] [address] [place] [address] FIO2 62.5 Normal [facility] Comment on above: Performed By: #### H EMDF, PT, BMP3M, PHOS3, MG3, CK3 #### [address] [place], [place] #### VD25H #### [facility] [address] [place] [address] Basic Metabolic Panelon - Anion gap molar conc 6 Normal [facility] Comment on above: Performed By: #### H EMDF, PT, BMP3M, PHOS3, MG3, CK3 #### [place] [address] [place] #### VD25H #### [facility] [address] [place] [address] Calcium mass conc 8.0 mg/dL Low 8.4-10.4 [facility] Comment on above: Performed By: #### H EMDF, PT, BMP3M, PHOS3, MG3, CK3 #### [place] [address] [place] #### VD25H #### [facility] [address] [place] [address] CO2 molar conc 28 mmol/L Normal 22-30 [facility] Comment on above: Performed By: #### H EMDF, PT, BMP3M, PHOS3, MG3, CK3 #### [place] [address] [place] #### VD25H #### [facility] [address] [place] [address] Creatinine mass conc 0.62 mg/dL Normal 0.52-1.25 [facility] Comment on above: Performed By: #### H EMDF, PT, BMP3M, PHOS3, MG3, CK3 #### [address] #### VD25H #### [facility] [address] [place] [address] GFR/1.73 sq M predicted among blacks MDRD vol rate/area (S/P/Bld) mL/min/{1.73_m2} Normal >60 [facility] Comment on above: Performed By: #### H EMDF, PT, BMP3M, PHOS3, MG3, CK3 #### [address] #### VD25H #### [facility] [address] [place] [address] GFR/1.73 sq M predicted among non-blacks MDRD vol rate/area (S/P/Bld) mL/min/{1.73_m2} Normal >60 [facility] Comment on above: Result Comment: Sour ce- MDRD equation with creatinine calibration to IDMS(NKDEP) eGFR not recommended for drug dose adjustment Performed By: #### H EMDF, PT, BMP3M, PHOS3, MG3, CK3 #### [address] #### VD25H #### [facility] [address] [place] [address] Glucose mass conc 125 mg/dL High 70-100 [facility] Comment on above: Performed By: #### H EMDF, PT, BMP3M, PHOS3, MG3, CK3 #### [address] #### VD25H #### [facility] [address] [place] [address] Urea nitrogen mass conc 12 mg/dL Normal 7-20 [facility] Comment on above: Performed By: #### H EMDF, PT, BMP3M, PHOS3, MG3, CK3 #### [facility] [address] [place] #### VD25H #### [facility] [address] [place] [address] Chloride molar conc 104 mmol/L Normal 98-107 [facility] Comment on above: Performed By: #### H EMDF, PT, BMP3M, PHOS3, MG3, CK3 #### [facility] [address] [place] #### VD25H #### [facility] [address] [place] [address] Potassium molar conc 3.6 mmol/L Normal 3.5-5.1 [facility] Comment on above: Performed By: #### H EMDF, PT, BMP3M, PHOS3, MG3, CK3 #### [facility] [address] [facility] #### VD25H #### [facility] [address] [place] [address] Sodium molar conc 138 mmol/L Normal 135-145 [facility] Comment on above: Performed By: #### H EMDF, PT, BMP3M, PHOS3, MG3, CK3 #### [facility] [address] [place] #### VD25H #### [facility] [address] [place] [address] CR Chest Portableon 07-13-19 19 CR Chest Portable Patient Name: KATHYA HOOPER Diagnostic Radiology Exam Date/Time 07/12/2018 10:18:11 EDT Exam CR Chest Portable Ordering Physician MARIA EUGENIA PEREZ Accession Number [id number] CPT4 Codes 48434 () Reason For Exam ETT Placement Report [...] CR Chest Portable Ordering Physician MD NATE, [facility] Accession Number [id number] CPT4 Codes 19789 () Reason For Exam dyspnea Report PORTABLE [...] Abs Baso Cnt 0.0 10*3/uL Normal 0.0-0.2 [facility] Comment on above: Performed By: #### H EMDF, PT, BMP3M, PHOS3, MG3, CK3 #### [facility] [address] [place], [place] #### VD25H #### [facility] [address] [place] [address] Abs Neutrophile Cnt 10.2 10*3/uL High 1.8-7.0 [facility] Comment on above: Performed By: #### H EMDF, PT, BMP3M, PHOS3, MG3, CK3 #### [facility] [address] [place], [place] #### VD25H #### [facility] [address] [place] [address] Basophils/100 WBC (Bld) 0.4 % Normal 0.0-2.0 [facility] Comment on above: Performed By: #### H EMDF, PT, BMP3M, PHOS3, MG3, CK3 #### [facility] [address] [place], [place] #### VD25H #### [facility] [address] [place] [address] Eosinophils #/vol (Bld) 0.1 10*3/uL Normal 0.0-0.5 [facility] Comment on above: Performed By: #### H EMDF, PT, BMP3M, PHOS3, MG3, CK3 #### [address] #### VD25H #### [facility] [address] [place] [address] Eosinophils/100 WBC (Bld) 0.6 % Low 1.0-6.0 [facility] Comment on above: Performed By: #### H EMDF, PT, BMP3M, PHOS3, MG3, CK3 #### [address] [place], [place] #### VD25H #### [facility] [address] [place] [address] Erythrocyte distribution width Ratio (RBC) 13.5 % Normal 11.5-14.5 [facility] Comment on above: Performed By: #### H EMDF, PT, BMP3M, PHOS3, MG3, CK3 #### [address] #### VD25H #### [facility] [address] [place] [address] Granulocytes/100 WBC (Bld) 84.7 % High 40.0-80.0 [facility] Comment on above: Performed By: #### H EMDF, PT, BMP3M, PHOS3, MG3, CK3 #### [address] #### VD25H #### [facility] [address] [place] [address] Hematocrit Volume Fraction (Bld) 39.7 % Low 40.0-52.0 [facility] Comment on above: Performed By: #### H EMDF, PT, BMP3M, PHOS3, MG3, CK3 #### [address] #### VD25H #### [facility] [address] [place] [address] Hemoglobin mass conc (Bld) 13.5 g/dL Normal 13.0-18.0 [facility] Comment on above: Performed By: #### H EMDF, PT, BMP3M, PHOS3, MG3, CK3 #### [place] [address] [place] #### VD25H #### [facility] [address] [place] [address] Lymphocytes #/vol (Bld) 0.9 10*3/uL Low 1.0-4.3 [facility] Comment on above: Performed By: #### H EMDF, PT, BMP3M, PHOS3, MG3, CK3 #### [address] #### VD25H #### [facility] [address] [place] [address] Lymphocytes/100 WBC (Bld) 7.6 % Low 20.0-40.0 [facility] Comment on above: Performed By: #### H EMDF, PT, BMP3M, PHOS3, MG3, CK3 #### [address] #### VD25H #### [facility] [address] [place] [address] MCH Entitic mass (RBC) 29.6 pg Normal 26.0-34.0 [facility] Comment on above: Performed By: #### H EMDF, PT, BMP3M, PHOS3, MG3, CK3 #### [address] [address] [place], [place] #### VD25H #### [facility] [address] [place] [address] MCHC mass conc (RBC) 34.1 % Normal 32.0-36.0 [facility] Comment on above: Performed By: #### H EMDF, PT, BMP3M, PHOS3, MG3, CK3 #### [address] #### VD25H #### [facility] [address] [place] [address] MCV Entitic volume (RBC) 87.0 fL Normal 80.0-98.0 [facility] Comment on above: Performed By: #### H EMDF, PT, BMP3M, PHOS3, MG3, CK3 #### [facility] [address] [place] #### VD25H #### [facility] [address] [place] [address] Monocytes #/vol (Bld) 0.8 10*3/uL Normal 0.0-0.8 [facility] Comment on above: Performed By: #### H EMDF, PT, BMP3M, PHOS3, MG3, CK3 #### [address] #### VD25H #### [facility] [address] [place] [address] Monocytes/100 WBC (Bld) 6.7 % Normal 2.0-10.0 [facility] Comment on above: Performed By: #### H EMDF, PT, BMP3M, PHOS3, MG3, CK3 #### [address] #### VD25H #### [facility] [address] [place] [address] Platelet mean volume Entitic volume (Bld) 8.4 fL Normal 7.4-10.4 [facility] Comment on above: Performed By: #### H EMDF, PT, BMP3M, PHOS3, MG3, CK3 #### [address] #### VD25H #### [facility] [address] [place] [address] Platelets #/vol (Bld) 185 10*3/uL Normal 140-440 [facility] Comment on above: Performed By: #### H EMDF, PT, BMP3M, PHOS3, MG3, CK3 #### [address] #### VD25H #### [facility] [address] [place] [address] RBC #/vol (Bld) 4.57 10*6/uL Normal 4.40-5.90 [employer] [facility] Comment on above: Performed By: #### H EMDF, PT, BMP3M, PHOS3, MG3, CK3 #### [facility] [address] [place] [address] #### VD25H #### [facility] [address] [place] [address] WBC #/vol (Bld) 12.1 10*3/uL High 3.6-10.7 [facility] Comment on above: Performed By: #### H EMDF, PT, BMP3M, PHOS3, MG3, CK3 #### [facility] [address] [place], [place] #### VD25H #### [facility] [address] [place] [address] VL Venous Duplex US Lower Ex t Bilateralon 07-12-2018 VL Venous Duplex US Lower Ext Bilateral Patient Name: KATHYA HOOPER Ultrasound Exam Date/Time 07/12/2018 17:20:46 EDT Exam VL Venous Duplex US Lower Ext Bilateral Ordering Physician MD AVELAR ADAM Accession Number [id number] CPT4 Codes 54339 () Reason For Exam leg swelling Report [facility] --- Lower Extremity Venous Duplex Report Patient Name: Kathya Hooper : 1955 Study Date: 07/12/2018 [place] (63yrs) Age: 63 Account: [id number] Gender: M Loc: T209 BP: Ordering: Joshua Avelar Technologist: Ordering Physician: Joshua Avelar Coverstitch Elastic Attacher: Elizabeth Sanford RVT Interpreting Physician: Krysta Arora --- Location: [facility] --- INDICATIONS: Edema. bilateral calves. --- [...] performed. The images were obtained using a [employer] E9 vascular ultrasound machine. --- VENOUS FLOW [...] ---------+-------+--- --+ Electronically signed by: Krysta Arora [id number] Final Dictated: 07/13/2018 8:45 am Dictating Physician: KRYSTA ARORA Signed Date and Time: 07/13/2018 8:45 am Signed by: KRYSTA ARORA Normal [facility] Basic Metabolic Panelon 06-29 Calcium mass conc 7.8 mg/dL Low 8.4-10.4 [facility] Comment on above: Performed By: #### H EMDF, PT, BMP3M, PHOS3, MG3, CK3 #### [facility] [address] [facility], [place] #### VD25H #### [facility] [address] [place] [address] Anion gap molar conc 4 Normal [facility] Comment on above: Performed By: #### H EMDF, PT, BMP3M, PHOS3, MG3, CK3 #### [facility] [address] [facility] #### VD25H #### [facility] [address] [place] [address] CO2 molar conc 26 mmol/L Normal 22-30 [facility] Comment on above: Performed By: #### H EMDF, PT, BMP3M, PHOS3, MG3, CK3 #### [facility] [address] [facility] #### VD25H #### [facility] [address] [place] [address] Glucose mass conc 118 mg/dL High 70-100 [facility] Comment on above: Performed By: #### H EMDF, PT, BMP3M, PHOS3, MG3, CK3 #### [facility] [address] [facility] #### VD25H #### [facility] [address] [place] [address] Urea nitrogen mass conc 19 mg/dL Normal 7-20 [facility] Comment on above: Performed By: #### H EMDF, PT, BMP3M, PHOS3, MG3, CK3 #### [address] [place], [place] #### VD25H #### [facility] [address] [place] [address] Creatinine mass conc 0.74 mg/dL Normal 0.52-1.25 [facility] Comment on above: Performed By: #### H EMDF, PT, BMP3M, PHOS3, MG3, CK3 #### [place] [address] [place], [place] #### VD25H #### [facility] [address] [place] [address] GFR/1.73 sq M predicted among blacks MDRD vol rate/area (S/P/Bld) mL/min/{1.73_m2} Normal >60 [facility] Comment on above: Performed By: #### H EMDF, PT, BMP3M, PHOS3, MG3, CK3 #### [address] #### VD25H #### [facility] [address] [place] [address] GFR/1.73 sq M predicted among non-blacks MDRD vol rate/area (S/P/Bld) mL/min/{1.73_m2} Normal >60 [facility] Comment on above: Result Comment: Sour ce- MDRD equation with creatinine calibration to IDMS(NKDEP) eGFR not recommended for drug dose adjustment Performed By: #### H EMDF, PT, BMP3M, PHOS3, MG3, CK3 #### [address] #### VD25H #### [facility] [address] [place] [address] Chloride molar conc 112 mmol/L High 98-107 [facility] Comment on above: Performed By: #### H EMDF, PT, BMP3M, PHOS3, MG3, CK3 #### [address] #### VD25H #### [facility] [address] [place] [address] Potassium molar conc 3.8 mmol/L Normal 3.5-5.1 [facility] Comment on above: Performed By: #### H EMDF, PT, BMP3M, PHOS3, MG3, CK3 #### [facility] [address] [place] #### VD25H #### [facility] [address] [place] [address] Sodium molar conc 141 mmol/L Normal 135-145 [facility] Comment on above: Performed By: #### H EMDF, PT, BMP3M, PHOS3, MG3, CK3 #### [facility] [address] [place] #### VD25H #### [facility] [address] [place] [address] CR Chest 1 View Frontalon CR Chest 1 View Frontal Patient Name: KATHYA FELDER Diagnostic Radiology Exam Date/Time 07/11/2018 06:36:48 EDT Exam CR Chest 1 View Frontal Ordering Physician MD MOISÉS, JOSHUA Accession Number [id number] CPT4 Codes 24988 () Reason For Exam dyspnea Report EXAM [...] Abs Baso Cnt 0.0 10*3/uL Normal 0.0-0.2 [facility] Comment on above: Performed By: #### H EMDF, PT, BMP3M, PHOS3, MG3, CK3 #### [address] #### VD25H #### [facility] [address] [place] [address] Abs Neutrophile Cnt 8.8 10*3/uL High 1.8-7.0 [facility] Comment on above: Performed By: #### H EMDF, PT, BMP3M, PHOS3, MG3, CK3 #### [address] #### VD25H #### [facility] [address] [place] [address] Basophils/100 WBC (Bld) 0.4 % Normal 0.0-2.0 [facility] Comment on above: Performed By: #### H EMDF, PT, BMP3M, PHOS3, MG3, CK3 #### [address] #### VD25H #### [facility] [address] [place] [address] Eosinophils #/vol (Bld) 0.0 10*3/uL Normal 0.0-0.5 [facility] Comment on above: Performed By: #### H EMDF, PT, BMP3M, PHOS3, MG3, CK3 #### [address] #### VD25H #### [facility] [address] [place] [address] Eosinophils/100 WBC (Bld) 0.4 % Low 1.0-6.0 [facility] Comment on above: Performed By: #### H EMDF, PT, BMP3M, PHOS3, MG3, CK3 #### [address] #### VD25H #### [facility] [address] [place] [address] Erythrocyte distribution width Ratio (RBC) 13.7 % Normal 11.5-14.5 [facility] Comment on above: Performed By: #### H EMDF, PT, BMP3M, PHOS3, MG3, CK3 #### [address] #### VD25H #### [place] [address] [place] [address] Granulocytes/100 WBC (Bld) 80.6 % High 40.0-80.0 [facility] Comment on above: Performed By: #### H EMDF, PT, BMP3M, PHOS3, MG3, CK3 #### [address] #### VD25H #### [facility] [address] [place] [address] Hematocrit Volume Fraction (Bld) 32.8 % Low 40.0-52.0 [facility] Comment on above: Performed By: #### H EMDF, PT, BMP3M, PHOS3, MG3, CK3 #### [address] #### VD25H #### [facility] [address] [place] [address] Hemoglobin mass conc (Bld) 11.4 g/dL Low 13.0-18.0 [facility] Comment on above: Performed By: #### H EMDF, PT, BMP3M, PHOS3, MG3, CK3 #### [address] #### VD25H #### [facility] [address] [place] [address] Lymphocytes #/vol (Bld) 1.3 10*3/uL Normal 1.0-4.3 [facility] Comment on above: Performed By: #### H EMDF, PT, BMP3M, PHOS3, MG3, CK3 #### [address] #### [id number] #### [facility] [address] [place] [address] Lymphocytes/100 WBC (Bld) 11.5 % Low 20.0-40.0 [facility] Comment on above: Performed By: #### H EMDF, PT, BMP3M, PHOS3, MG3, CK3 #### [address] #### [id number] #### [place] [address] [place] [address] MCH Entitic mass (RBC) 30.2 pg Normal 26.0-34.0 [facility] Comment on above: Performed By: #### H EMDF, PT, BMP3M, PHOS3, MG3, CK3 #### [address] #### [id number] #### [facility] [address] [place] [address] MCHC mass conc (RBC) 34.7 % Normal 32.0-36.0 [facility] Comment on above: Performed By: #### H EMDF, PT, BMP3M, PHOS3, MG3, CK3 #### [address] #### [id number] #### [facility] [address] [place] [address] MCV Entitic volume (RBC) 86.9 fL Normal 80.0-98.0 [facility] Comment on above: Performed By: #### H EMDF, PT, BMP3M, PHOS3, MG3, CK3 #### [address] #### [id number] #### [facility] [address] [place] [address] Monocytes #/vol (Bld) 0.8 10*3/uL Normal 0.0-0.8 [facility] Comment on above: Performed By: #### H EMDF, PT, BMP3M, PHOS3, MG3, CK3 #### [place] [address] [address] [place] #### VD25H #### [facility] [address] [place] [address] Monocytes/100 WBC (Bld) 7.1 % Normal 2.0-10.0 [facility] Comment on above: Performed By: #### H EMDF, PT, BMP3M, PHOS3, MG3, CK3 #### [address] [place], [place] #### VD25H #### [facility] [address] [place] [address] Platelet mean volume Entitic volume (Bld) 8.8 fL Normal 7.4-10.4 [facility] Comment on above: Performed By: #### H EMDF, PT, BMP3M, PHOS3, MG3, CK3 #### [address] [place], [place] #### VD25H #### [facility] [address] [place] [address] Platelets #/vol (Bld) 158 10*3/uL Normal 140-440 [facility] Comment on above: Performed By: #### H EMDF, PT, BMP3M, PHOS3, MG3, CK3 #### [address] [place], [place] #### VD25H #### [facility] [address] [place] [address] RBC #/vol (Bld) 3.78 10*6/uL Low 4.40-5.90 [facility] Comment on above: Performed By: #### H EMDF, PT, BMP3M, PHOS3, MG3, CK3 #### [address] #### VD25H #### [facility] [address] [place] [address] WBC #/vol (Bld) 10.9 10*3/uL High 3.6-10.7 [facility] Comment on above: Performed By: #### H EMDF, PT, BMP3M, PHOS3, MG3, CK3 #### [address] #### VD25H #### [facility] [address] [place] [address] Magnesiumon 07-11-2018 Magnesium mass conc 2.3 mg/dL Normal 1.6-2.3 [facility] Comment on above: Performed By: #### H EMDF, PT, BMP3M, PHOS3, MG3, CK3 #### [address] #### VD25H #### [facility] [address] [place] [address] Phosphoruson 07-11-2018 Phosphate mass conc 2.8 mg/dL Normal 2.5-4.5 [facility] [employer] Comment on above: Performed By: #### H EMDF, PT, BMP3M, PHOS3, MG3, CK3 #### [address] #### VD25H #### [facility] [address] [place] [address] Basic Metabolic Panelon 06-29 Calcium mass conc 8.9 mg/dL Normal 8.4-10.4 [facility] Comment on above: Performed By: #### H EMDF, PT, BMP3M, PHOS3, MG3, CK3 #### [address] #### VD25H #### [facility] [address] [place] [address] Glucose mass conc 133 mg/dL High 70-100 [facility] Comment on above: Performed By: #### H EMDF, PT, BMP3M, PHOS3, MG3, CK3 #### [address] [place] [address] #### VD25H #### [facility] [address] [place] [address] Anion gap molar conc 4 Normal [facility] Comment on above: Performed By: #### H EMDF, PT, BMP3M, PHOS3, MG3, CK3 #### [address] [address] [place], [place] #### VD25H #### [facility] [address] [place] [address] CO2 molar conc 27 mmol/L Normal 22-30 [facility] Comment on above: Performed By: #### H EMDF, PT, BMP3M, PHOS3, MG3, CK3 #### [address] #### VD25H #### [facility] [address] [place] [address] Creatinine mass conc 0.69 mg/dL Normal 0.52-1.25 [facility] Comment on above: Performed By: #### H EMDF, PT, BMP3M, PHOS3, MG3, CK3 #### [address] #### VD25H #### [facility] [address] [place] [address] GFR/1.73 sq M predicted among blacks MDRD vol rate/area (S/P/Bld) mL/min/{1.73_m2} Normal >60 [facility] Comment on above: Performed By: #### H EMDF, PT, BMP3M, PHOS3, MG3, CK3 #### [address] [address] [place] [address] #### VD25H #### [facility] [address] [place] [address] GFR/1.73 sq M predicted among non-blacks MDRD vol rate/area (S/P/Bld) mL/min/{1.73_m2} Normal >60 [facility] Comment on above: Result Comment: Sour ce- MDRD equation with creatinine calibration to IDMS(NKDEP) eGFR not recommended for drug dose adjustment Performed By: #### H EMDF, PT, BMP3M, PHOS3, MG3, CK3 #### [facility] [address] [place], [place] #### VD25H #### [facility] [address] [place] [address] Urea nitrogen mass conc 16 mg/dL Normal 7-20 [facility] Comment on above: Performed By: #### H EMDF, PT, BMP3M, PHOS3, MG3, CK3 #### [address] #### VD25H #### [facility] [address] [place] [address] Potassium molar conc 4.1 mmol/L Normal 3.5-5.1 [facility] Comment on above: Performed By: #### H EMDF, PT, BMP3M, PHOS3, MG3, CK3 #### [address] [place] #### VD25H #### [facility] [address] [place] [address] Sodium molar conc 142 mmol/L Normal 135-145 [facility] Comment on above: Performed By: #### H EMDF, PT, BMP3M, PHOS3, MG3, CK3 #### [address] [facility], [place] #### VD25H #### [facility] [address] [place] [address] Chloride molar conc 110 mmol/L High 98-107 [facility] Comment on above: Performed By: #### H EMDF, PT, BMP3M, PHOS3, MG3, CK3 #### [address] [address] [place] #### VD25H #### [facility] [address] [place] [address] CKon 07-10-2018 CK enzyme act/vol 1291 U/L High 30-170 [facility] Comment on above: Performed By: #### H EMDF, PT, BMP3M, PHOS3, MG3, CK3 #### [facility] [address] [place] [address] #### VD25H #### [facility] [address] [place] [address] CK enzyme act/vol 1382 U/L High 30-170 [facility] Comment on above: Performed By: #### H EMDF, PT, BMP3M, PHOS3, MG3, CK3 #### [facility] [address] [place] [address] #### VD25H #### [facility] [address] [place] [address] CR Chest 1 View Frontalon CR Chest 1 View Frontal Patient Name: KATHYA FELDER Diagnostic Radiology Exam Date/Time 07/10/2018 06:38:06 EDT Exam CR Chest 1 View Frontal Ordering Physician MD NATE, [facility] Accession Number [id number] CPT4 Codes 23691 () Reason For Exam dyspnea Report EXAMINATION: [...] Abs Baso Cnt 0.0 10*3/uL Normal 0.0-0.2 [facility] Comment on above: Performed By: #### H EMDF, PT, BMP3M, PHOS3, MG3, CK3 #### [address] #### VD25H #### [facility] [address] [place] [address] Abs Neutrophile Cnt 12.2 10*3/uL High 1.8-7.0 [facility] Comment on above: Performed By: #### H EMDF, PT, BMP3M, PHOS3, MG3, CK3 #### [address] #### VD25H #### [facility] [address] [place] [address] Basophils/100 WBC (Bld) 0.3 % Normal 0.0-2.0 [facility] Comment on above: Performed By: #### H EMDF, PT, BMP3M, PHOS3, MG3, CK3 #### [address] #### VD25H #### [facility] [address] [place] [address] Eosinophils #/vol (Bld) 0.0 10*3/uL Normal 0.0-0.5 [facility] Comment on above: Performed By: #### H EMDF, PT, BMP3M, PHOS3, MG3, CK3 #### [address] [address] #### VD25H #### [facility] [address] [place] [address] Eosinophils/100 WBC (Bld) 0.0 % Low 1.0-6.0 [facility] Comment on above: Performed By: #### H EMDF, PT, BMP3M, PHOS3, MG3, CK3 #### [address] #### VD25H #### [facility] [address] [place] [address] Erythrocyte distribution width Ratio (RBC) 13.9 % Normal 11.5-14.5 [facility] Comment on above: Performed By: #### H EMDF, PT, BMP3M, PHOS3, MG3, CK3 #### [address] #### VD25H #### [facility] [address] [place] [address] Granulocytes/100 WBC (Bld) 89.5 % High 40.0-80.0 [facility] Comment on above: Performed By: #### H EMDF, PT, BMP3M, PHOS3, MG3, CK3 #### [address] #### VD25H #### [facility] [address] [place] [address] Hematocrit Volume Fraction (Bld) 36.0 % Low 40.0-52.0 [facility] Comment on above: Performed By: #### H EMDF, PT, BMP3M, PHOS3, MG3, CK3 #### [address] [place], [place] #### VD25H #### [facility] [address] [place] [address] Hemoglobin mass conc (Bld) 12.3 g/dL Low 13.0-18.0 [facility] Comment on above: Performed By: #### H EMDF, PT, BMP3M, PHOS3, MG3, CK3 #### [address] #### VD25H #### [facility] [address] [place] [address] Lymphocytes #/vol (Bld) 0.6 10*3/uL Low 1.0-4.3 [facility] Comment on above: Performed By: #### H EMDF, PT, BMP3M, PHOS3, MG3, CK3 #### [address] [place] #### VD25H #### [facility] [address] [place] [address] Lymphocytes/100 WBC (Bld) 4.3 % Low 20.0-40.0 [facility] Comment on above: Performed By: #### H EMDF, PT, BMP3M, PHOS3, MG3, CK3 #### [address] [place], [place] #### VD25H #### [facility] [address] [place] [address] MCH Entitic mass (RBC) 29.8 pg Normal 26.0-34.0 [facility] Comment on above: Performed By: #### H EMDF, PT, BMP3M, PHOS3, MG3, CK3 #### [address] [place] #### VD25H #### [facility] [address] [place] [address] MCHC mass conc (RBC) 34.2 % Normal 32.0-36.0 [facility] Comment on above: Performed By: #### H EMDF, PT, BMP3M, PHOS3, MG3, CK3 #### [address] #### VD25H #### [facility] [address] [place] [address] MCV Entitic volume (RBC) 87.1 fL Normal 80.0-98.0 [facility] Comment on above: Performed By: #### H EMDF, PT, BMP3M, PHOS3, MG3, CK3 #### [address] [place], [place] #### VD25H #### [facility] [address] [place] [address] Monocytes #/vol (Bld) 0.8 10*3/uL Normal 0.0-0.8 [facility] Comment on above: Performed By: #### H EMDF, PT, BMP3M, PHOS3, MG3, CK3 #### [address] [place], [place] #### VD25H #### [facility] [address] [place] [address] Monocytes/100 WBC (Bld) 5.9 % Normal 2.0-10.0 [facility] Comment on above: Performed By: #### H EMDF, PT, BMP3M, PHOS3, MG3, CK3 #### [address] #### VD25H #### [facility] [address] [place] [address] Platelet mean volume Entitic volume (Bld) 8.4 fL Normal 7.4-10.4 [facility] Comment on above: Performed By: #### H EMDF, PT, BMP3M, PHOS3, MG3, CK3 #### [address] #### VD25H #### [facility] [address] [place] [address] Platelets #/vol (Bld) 155 10*3/uL Normal 140-440 [facility] Comment on above: Performed By: #### H EMDF, PT, BMP3M, PHOS3, MG3, CK3 #### [address] #### VD25H #### [facility] [address] [place] [address] RBC #/vol (Bld) 4.13 10*6/uL Low 4.40-5.90 [facility] Comment on above: Performed By: #### H EMDF, PT, BMP3M, PHOS3, MG3, CK3 #### [address] [place] #### VD25H #### [facility] [address] [place] [address] WBC #/vol (Bld) 13.6 10*3/uL High 3.6-10.7 [facility] Comment on above: Performed By: #### H EMDF, PT, BMP3M, PHOS3, MG3, CK3 #### [address] [place] #### VD25H #### [facility] [address] [place] [address] Magnesiumon 07-10-2018 Magnesium mass conc 2.3 mg/dL Normal 1.6-2.3 [facility] Comment on above: Performed By: #### H EMDF, PT, BMP3M, PHOS3, MG3, CK3 #### [address] #### VD25H #### [facility] [address] [place] [address] Phosphoruson 07-10-2018 Phosphate mass conc 2.7 mg/dL Normal 2.5-4.5 [facility] Comment on above: Performed By: #### H EMDF, PT, BMP3M, PHOS3, MG3, CK3 #### [address] #### VD25H #### [facility] [address] [place] [address] Add on test from HISon 07-09 Add on test from HIS Accepted Normal [facility] Comment on above: Result Comment: Spec imen available & acceptable for analysis. Performed By: #### A DDON #### [address] Arterial Blood Gaseson 07-09 CO2 molar conc 24.5 mmol/L Normal 23.0-27.0 [facility] Comment on above: Performed By: #### H EMDF, PT, BMP3M, PHOS3, MG3, CK3 #### [facility] [address] [place], [place] #### VD25H #### [facility] [address] [place] [address] HCO3 molar conc (Bld) 23.2 mmol/L Normal 21.0-25.0 [facility] Comment on above: Performed By: #### H EMDF, PT, BMP3M, PHOS3, MG3, CK3 #### [address] [place] #### VD25H #### [facility] [address] [place] [address] Hemoglobin mass conc (Bld) 15.7 g/dL Normal [facility] Comment on above: Performed By: #### H EMDF, PT, BMP3M, PHOS3, MG3, CK3 #### [address] #### VD25H #### [facility] [address] [place] [address] Oxygen ppres (Bld) 397.4 mm[Hg] High 80.0-100.0 [facility] Comment on above: Performed By: #### H EMDF, PT, BMP3M, PHOS3, MG3, CK3 #### [address] #### VD25H #### [facility] [address] [place] [address] Oxygen saturation in Blood 99.2 % Normal 95.0-100.0 [facility] Comment on above: Performed By: #### H EMDF, PT, BMP3M, PHOS3, MG3, CK3 #### [address] [place] #### VD25H #### [facility] [address] [place] [address] pCO2 42.3 mm[Hg] Normal 35.0-45.0 [facility] Comment on above: Performed By: #### H EMDF, PT, BMP3M, PHOS3, MG3, CK3 #### [address] [place] #### VD25H #### [facility] [address] [place] [address] pH (Bld) 7.357 Normal 7.350-7.450 [facility] Comment on above: Performed By: #### H EMDF, PT, BMP3M, PHOS3, MG3, CK3 #### [facility] [address] [place] #### VD25H #### [facility] [address] [place] [address] Std Base Excess -2.3 mmol/L Normal -3.0-3.0 [facility] Comment on above: Performed By: #### H EMDF, PT, BMP3M, PHOS3, MG3, CK3 #### [address] [place] #### VD25H #### [facility] [address] [place] [address] FIO2 100% Normal [facility] Comment on above: Performed By: #### H EMDF, PT, BMP3M, PHOS3, MG3, CK3 #### [address] #### VD25H #### [facility] [address] [place] [address] Basic Metabolic Panelon - Calcium mass conc 8.6 mg/dL Normal 8.4-10.4 [facility] Comment on above: Performed By: #### H EMDF, PT, BMP3M, PHOS3, MG3, CK3 #### [address] [place] #### VD25H #### [facility] [address] [place] [address] Glucose mass conc 150 mg/dL High 70-100 [facility] Comment on above: Performed By: #### H EMDF, PT, BMP3M, PHOS3, MG3, CK3 #### [address] [place], [place] #### VD25H #### [facility] [address] [place] [address] Anion gap molar conc 7 Normal [facility] Comment on above: Performed By: #### H EMDF, PT, BMP3M, PHOS3, MG3, CK3 #### [address] [place] #### VD25H #### [facility] [address] [place] [address] CO2 molar conc 26 mmol/L Normal 22-30 [facility] Comment on above: Performed By: #### H EMDF, PT, BMP3M, PHOS3, MG3, CK3 #### [address] #### VD25H #### [facility] [address] [place] [address] Creatinine mass conc 0.80 mg/dL Normal 0.52-1.25 [facility] Comment on above: Performed By: #### H EMDF, PT, BMP3M, PHOS3, MG3, CK3 #### [address] #### VD25H #### [facility] [address] [place] [address] GFR/1.73 sq M predicted among blacks MDRD vol rate/area (S/P/Bld) mL/min/{1.73_m2} Normal >60 [facility] Comment on above: Performed By: #### H EMDF, PT, BMP3M, PHOS3, MG3, CK3 #### [address] #### VD25H #### [facility] [address] [place] [address] GFR/1.73 sq M predicted among non-blacks MDRD vol rate/area (S/P/Bld) mL/min/{1.73_m2} Normal >60 [facility] Comment on above: Result Comment: Sour ce- MDRD equation with creatinine calibration to IDMS(NKDEP) eGFR not recommended for drug dose adjustment Performed By: #### H EMDF, PT, BMP3M, PHOS3, MG3, CK3 #### [facility] [address] [facility] #### VD25H #### [facility] [address] [place] [address] Urea nitrogen mass conc 16 mg/dL Normal 7-20 S [facility] Comment on above: Performed By: #### H EMDF, PT, BMP3M, PHOS3, MG3, CK3 #### [address] [facility] #### VD25H #### [facility] [address] [place] [address] Chloride molar conc 110 mmol/L High 98-107 [facility] Comment on above: Performed By: #### H EMDF, PT, BMP3M, PHOS3, MG3, CK3 #### [address] [facility] #### VD25H #### [facility] [address] [place] [address] Potassium molar conc 4.7 mmol/L Normal 3.5-5.1 [facility] Comment on above: Performed By: #### H EMDF, PT, BMP3M, PHOS3, MG3, CK3 #### [address] [facility] #### VD25H #### [facility] [address] [place] [address] Sodium molar conc 143 mmol/L Normal 135-145 [facility] Comment on above: Performed By: #### H EMDF, PT, BMP3M, PHOS3, MG3, CK3 #### [address] [facility] #### VD25H #### [facility] [address] [place] [address] CKon 07-09-2018 CK enzyme act/vol 1451 U/L High 30-170 [facility] Comment on above: Performed By: #### H EMDF, PT, BMP3M, PHOS3, MG3, CK3 #### [facility] [address] [place] [address] #### VD25H #### [facility] [address] [place] [address] CK enzyme act/vol 3832 U/L High 30-170 [facility] Comment on above: Performed By: #### H EMDF, PT, BMP3M, PHOS3, MG3, CK3 #### [facility] [address] [place] [address] #### VD25H #### [facility] [address] [place] [address] CR Chest 1 View Frontalon CR Chest 1 View Frontal Patient Name: KATHYA FELDER Diagnostic Radiology Exam Date/Time 07/09/2018 06:21:56 EDT Exam CR Chest 1 View Frontal Ordering Physician MD NATE, [facility] Accession Number [id number] CPT4 Codes 45144 () Reason For Exam dyspnea Report CHEST [...] Portable Ordering Physician INDRA JACOBSON Accession Number [id number] CPT4 Codes 42656 () Reason For Exam Central line placement [...] JOHN Transcribed Date and Time: 07/09/2018 1:01 [facility] CR Chest Portable Patient Name: KATHYA HOOPER Diagnostic Radiology Exam Date/Time 07/09/2018 03:05:20 EDT Exam CR Chest Portable Ordering Physician MD NATE, [facility] Accession Number [id number] CPT4 Codes 93521 () Reason For Exam intubation Report CHEST PORTABLE: Indication: Inpatient; intubation Views: Portable frontal Comparison: 07/08/2018 at 22:16 Time: 07/09/2018 at 2:46 FINDINGS: Interval intubation with endotracheal tube approximately 4.2 cm above the level of the alma. An enteric tube has been placed with distal tip below the hemidiaphragm but excluded from [id number]. Cardiac monitoring wires and leads are present. [...] Transcribed Date and Time: 07/09/2018 3:10 Normal [facility] CR Chest Portable Patient Name: KATHYA HOOPER Diagnostic Radiology Exam Date/Time 07/08/2018 22:31:57 EDT Exam CR Chest Portable Ordering Physician MD NATE, NICOLE HOLLEY Accession Number [id number] CPT4 Codes 66441 () Reason For Exam cough Report CHEST [...] + w/o contrast Patient Name: KATHYA HOOPER [facility]: [id number] CT Exam Date/Time 07/09/2018 04:42:10 EDT Exam CTA Head/Neck w/ + w/o contrast Ordering Physician MD RICKI, JORDAN Accession Number [id number] CPT4 Codes Q9967 (CT ISOVUE [id number]), 56702 (), 39507 () Reason For Exam CERVICAL SPINE FRACTURE Report CLINICAL INFORMATION: C-spine fracture after trauma. Vascular injury suspected. CTA HEAD: After 75 ml Isovue IV contrast, 0.3 mm axial cuts were obtained through the brain. Coronal and sagittal reconstructions are reviewed. In addition, 3D images of the [place] were constructed by wy and reviewed simultaneously on the separate [employer] Workstation. The examination is compared to a [...] me and reviewed simultaneously on the separate [employer] Workstation. The examination is compared to a [...] Abs Baso Cnt 0.1 10*3/uL Normal 0.0-0.2 [facility] Comment on above: Performed By: #### H EMDF, PT, BMP3M, PHOS3, MG3, CK3 #### [address] #### VD25H #### [facility] [address] [place] [address] Abs Neutrophile Cnt 13.3 10*3/uL High 1.8-7.0 [facility] Comment on above: Performed By: #### H EMDF, PT, BMP3M, PHOS3, MG3, CK3 #### [address] [place] #### VD25H #### [facility] [address] [place] [address] Basophils/100 WBC (Bld) 0.3 % Normal 0.0-2.0 [facility] Comment on above: Performed By: #### H EMDF, PT, BMP3M, PHOS3, MG3, CK3 #### [facility] [address] [place] #### VD25H #### [facility] [address] [place] [address] Eosinophils #/vol (Bld) 0.0 10*3/uL Normal 0.0-0.5 [facility] Comment on above: Performed By: #### H EMDF, PT, BMP3M, PHOS3, MG3, CK3 #### [address] #### VD25H #### [facility] [address] [place] [address] Eosinophils/100 WBC (Bld) 0.0 % Low 1.0-6.0 [facility] Comment on above: Performed By: #### H EMDF, PT, BMP3M, PHOS3, MG3, CK3 #### [address] [place], [place] #### VD25H #### [facility] [address] [place] [address] Erythrocyte distribution width Ratio (RBC) 13.7 % Normal 11.5-14.5 [facility] Comment on above: Performed By: #### H EMDF, PT, BMP3M, PHOS3, MG3, CK3 #### [address] #### VD25H #### [facility] [address] [place] [address] Granulocytes/100 WBC (Bld) 86.5 % High 40.0-80.0 [facility] Comment on above: Performed By: #### H EMDF, PT, BMP3M, PHOS3, MG3, CK3 #### [address] #### VD25H #### [facility] [address] [place] [address] Hematocrit Volume Fraction (Bld) 45.1 % Normal 40.0-52.0 [facility] Comment on above: Performed By: #### H EMDF, PT, BMP3M, PHOS3, MG3, CK3 #### [address] #### VD25H #### [facility] [address] [place] [address] Hemoglobin mass conc (Bld) 15.6 g/dL Normal 13.0-18.0 [facility] Comment on above: Performed By: #### H EMDF, PT, BMP3M, PHOS3, MG3, CK3 #### [address] #### VD25H #### [facility] [address] [place] [address] Lymphocytes #/vol (Bld) 0.8 10*3/uL Low 1.0-4.3 [facility] Comment on above: Performed By: #### H EMDF, PT, BMP3M, PHOS3, MG3, CK3 #### [address] [place] #### VD25H #### [facility] [address] [place] [address] Lymphocytes/100 WBC (Bld) 5.5 % Low 20.0-40.0 [facility] Comment on above: Performed By: #### H EMDF, PT, BMP3M, PHOS3, MG3, CK3 #### [address] #### VD25H #### [place] [address] [place] [address] MCH Entitic mass (RBC) 29.9 pg Normal 26.0-34.0 [facility] Comment on above: Performed By: #### H EMDF, PT, BMP3M, PHOS3, MG3, CK3 #### [address] #### VD25H #### [facility] [address] [place] [address] MCHC mass conc (RBC) 34.5 % Normal 32.0-36.0 [facility] Comment on above: Performed By: #### H EMDF, PT, BMP3M, PHOS3, MG3, CK3 #### [address] #### VD25H #### [facility] [address] [place] [address] MCV Entitic volume (RBC) 86.7 fL Normal 80.0-98.0 [facility] Comment on above: Performed By: #### H EMDF, PT, BMP3M, PHOS3, MG3, CK3 #### [address] #### VD25H #### [facility] [address] [place] [address] Monocytes #/vol (Bld) 1.2 10*3/uL High 0.0-0.8 [facility] Comment on above: Performed By: #### H EMDF, PT, BMP3M, PHOS3, MG3, CK3 #### [address] #### [id number] #### [facility] [address] [place] [address] Monocytes/100 WBC (Bld) 7.7 % Normal 2.0-10.0 [facility] Comment on above: Performed By: #### H EMDF, PT, BMP3M, PHOS3, MG3, CK3 #### [address] #### [id number] #### [place] [address] [place] [address] Platelet mean volume Entitic volume (Bld) 8.1 fL Normal 7.4-10.4 [facility] Comment on above: Performed By: #### H EMDF, PT, BMP3M, PHOS3, MG3, CK3 #### [address] #### [id number] #### [place] [address] [place] [address] Platelets #/vol (Bld) 197 10*3/uL Normal 140-440 [facility] Comment on above: Performed By: #### H EMDF, PT, BMP3M, PHOS3, MG3, CK3 #### [address] #### [id number] #### [facility] [address] [place] [id number] RBC #/vol (Bld) 5.20 10*6/uL Normal 4.40-5.90 [facility] Comment on above: Performed By: #### H EMDF, PT, BMP3M, PHOS3, MG3, CK3 #### [address] [address] [place] [address] #### VD25H #### [facility] [address] [place] [address] WBC #/vol (Bld) 15.4 10*3/uL High 3.6-10.7 [facility] Comment on above: Performed By: #### H EMDF, PT, BMP3M, PHOS3, MG3, CK3 #### [address] [place], [place] #### VD25H #### [facility] [address] [place] [address] MRI Spine Cervical w/o Contr birgit 07-09-2018 MRI Spine Cervical w/o Contrast Patient Name: KATHYA HOOPER MRI Exam Date/Time 07/09/2018 00:44:49 EDT Exam MRI Spine Cervical w/o Contrast Ordering Physician MD CHEYENNE, BRITTANY BERRY Accession Number [id number] CPT4 Codes [id number] () Reason For Exam CERVICAL SPINE FRACTURE [...] EMDF, PT, BMP3M, PHOS3, MG3, CK3 #### [address] #### VD25H #### [facility] [address] [facility] [place] [address] Phosphoruson 07-09-2018 Phosphate mass conc 4.0 mg/dL Normal 2.5-4.5 [facility] Comment on above: Performed By: #### H EMDF, PT, BMP3M, PHOS3, MG3, CK3 #### [address] [address] #### VD25H #### [facility] [address] [place] [place] [address] Prothrombin Timeon 9 INR Coag RelTime (PPP) 1.0 Normal 0.9-1.1 [facility] Comment on above: Result Comment: Yefri mmended [...] PHOS3, MG3, CK3 #### [facility] [address] [place], [place] #### VD25H #### [facility] [address] [place] [address] Prothrombin time (PT) Coag time (PPP) 10.3 s Normal 9.0-12.0 [facility] Comment on above: Result Comment: . Performed By: #### H EMDF, PT, BMP3M, PHOS3, MG3, CK3 #### [address] #### VD25H #### [facility] [address] [place] [address] TS GELon 07-09-2018 TS GEL ABO Group: O Rh, Gel: POS Antibody Screen Gel: NEG Normal [facility] Comment on above: Performed By: #### T SGL #### [address] [address] Vit D 25-OH, Totalon 019 Vit D 25-OH, Total 23 ng/mL Low 30-100 [facility] Comment on above: Result Comment: Ther apy is based on measurement of Total 25-OHD with the following classification levels: Less than 20 ng/mL: Indicative of Vit D deficiency 20-30 ng/mL: Suggests Vit D insufficiency Optimal: Greater than or equal to 30 ng/mL Test performed by [employer] Immunoassay, measuring Total Vitamin D, not individual fractions. Performed By: #### H EMDF, PT, BMP3M, PHOS3, MG3, CK3 #### [facility] [address] [place], [place] #### VD25H #### [facility] [address] [place] [address] Hematologyon 01-03-2003 Lymphocytes (Bld) [#/Vol] RECTUM, BIOPSY - BENIGN COLONIC MUCOSA WITH INTRAMUCOSAL LYMPHOID AGGREGATES. [facility] Otheron 01-03-2003 CONVERTED ELECTRONIC SIGNATURE BARBARA CASTILLO M.D., PATHOLOGIST (Electronic signature on file) Final Signed Out: 01/03/2003 15:09 [facility] CONVERTED ORDERING PROVIDER Ordering Provider: BENI VERA [facility] Culture, urine Bacteria identified Cx Nom (U) Culture exhibits no growth. [facility] Work Phone: Vital Signs Date Time Vital Sign Value Performing Clinician Facility 10-02-2023 13:56-0400 Diastolic blood pressure 62 mm[Hg] Fei Farooq MD Work Phone: [facility] 10-02-2023 13:56-0400 Heart rate 104 /min Fei Farooq MD Work Phone: [facility] 10-02-2023 13:56-0400 SaO2% (BldA) [Mass fraction] 94 % Fei Farooq MD Work Phone: [facility] 10-02-2023 13:56-0400 Systolic blood pressure 124 mm[Hg] Fei Farooq MD Work Phone: [facility] 10-02-2023 11:13-0400 Respiratory rate 16 /min Fei Farooq MD Work Phone: [facility] 10-02-2023 09:47-0400 Body mass index (BMI) [Ratio] 26.19 kg/m2 Fei Farooq MD Work Phone: [facility] 10-02-2023 09:47-0400 Body temperature 98.01 [degF] Fei Farooq MD Work Phone: [facility] 10-02-2023 09:47-0400 Body weight 92.53 kg Fei Farooq MD Work Phone: [facility] 05-20-2022 18:30-0500 Body mass index (BMI) [Ratio] 26.32 kg/m2 Abelardo Rios DO Work Phone: [facility] 05-20-2022 18:30-0500 Body temperature 97.3 [degF] Abelardo Gombash DO Work Phone: [facility] 05-20-2022 18:30-0500 Body weight 92.99 kg Abelardo Gombash DO Work Phone: [facility] 05-20-2022 18:30-0500 Diastolic blood pressure 108 mm[Hg] Abelardo Gombash DO Work Phone: [facility] 05-20-2022 18:30-0500 Heart rate 100 /min Abelardo Gombash DO Work Phone: [facility] 05-20-2022 18:30-0500 Respiratory rate 14 /min Abelardo Gombash DO Work Phone: [facility] 05-20-2022 18:30-0500 SaO2% (BldA) [Mass fraction] 98 % Abelardo Gombash DO Work Phone: [facility] 05-20-2022 18:30-0500 Systolic blood pressure 125 mm[Hg] Abelardo Gombash DO Work Phone: [facility] 05-15-2021 09:40-0500 Body height 188 cm Timothy Micheal DO Work Phone: [facility] 05-15-2021 09:40-0500 Body mass index (BMI) [Ratio] 23.75 kg/m2 Timothy Micheal DO Work Phone: [facility] 05-15-2021 09:40-0500 Body weight 83.92 kg Timothy Micheal DO Work Phone: [facility] 05-15-2021 09:38-0500 Body temperature 97.59 [degF] Timothy Micheal DO Work Phone: [facility] 05-15-2021 09:38-0500 Diastolic blood pressure 76 mm[Hg] Timothy Micheal DO Work Phone: [facility] 05-15-2021 09:38-0500 Heart rate 102 /min Timothy Micheal DO Work Phone: [facility] 05-15-2021 09:38-0500 Respiratory rate 16 /min Timothy Micheal DO Work Phone: [facility] 05-15-2021 09:38-0500 SaO2% (BldA) [Mass fraction] 99 % Timothy Micheal DO Work Phone: [facility] 05-15-2021 09:38-0500 Systolic blood pressure 115 mm[Hg] Timothy Micheal DO Work Phone: [facility] 03-24-2021 10:20-0500 Respiratory rate 18 /min Brady Nesheim DO Work Phone: [facility] 03-24-2021 10:20-0500 SaO2% (BldA) [Mass fraction] 94 % Brady Nesheim DO Work Phone: [facility] 03-24-2021 08:44-0500 Body temperature 97.7 [degF] Brady Nesheim DO Work Phone: [facility] 03-24-2021 08:44-0500 Diastolic blood pressure 55 mm[Hg] Brady Nesheim DO Work Phone: [facility] 03-24-2021 08:44-0500 Heart rate 85 /min Brady Nesheim DO Work Phone: [facility] 03-24-2021 08:44-0500 Systolic blood pressure 85 mm[Hg] Brady Nesheim DO Work Phone: [facility] 03-20-2021 13:41-0500 Body height 188 cm Brady Nesheim DO Work Phone: [facility] 03-20-2021 11:16-0500 Body mass index (BMI) [Ratio] 23.86 kg/m2 Brady Nesheim DO Work Phone: [facility] 03-20-2021 11:16-0500 Body weight 84.32 kg Brady Nesheim DO Work Phone: [facility] Comment on above: per Nataly RN (bed scal e measurement) on 03/20/2021 03-18-2021 15:02-0500 Body temperature 99.5 [degF] Boo Castro MD Work Phone: [facility] 03-18-2021 15:02-0500 Diastolic blood pressure 82 mm[Hg] Boo Castro MD Work Phone: [facility] 03-18-2021 15:02-0500 Heart rate 111 /min Boo Castro MD Work Phone: [facility] 03-18-2021 15:02-0500 Respiratory rate 18 /min Boo Castro MD Work Phone: [facility] 03-18-2021 15:02-0500 SaO2% (BldA) [Mass fraction] 93 % Boo Castro MD Work Phone: [facility] 03-18-2021 15:02-0500 Systolic blood pressure 111 mm[Hg] Boo Castro MD Work Phone: [facility] 10-30-2020 17:10-0400 Diastolic blood pressure 82 mm[Hg] Bethany Clemons MD Work Phone: [facility] Work Phone: 10-30-2020 17:10-0400 Heart rate 110 /min Bethany Clemons MD Work Phone: [facility] Work Phone: 10-30-2020 17:10-0400 Respiratory rate 16 /min Bethany Clemons MD Work Phone: [facility] Work Phone: 10-30-2020 17:10-0400 SaO2% (BldA) [Mass fraction] 99 % Bethany Clemons MD Work Phone: [facility] Work Phone: 10-30-2020 17:10-0400 Systolic blood pressure 125 mm[Hg] Bethany Clemons MD Work Phone: [facility] Work Phone: 10-30-2020 13:02-0400 Body mass index (BMI) [Ratio] 24.65 kg/m2 Bethany Clemons MD Work Phone: [facility] Work Phone: 10-30-2020 13:02-0400 Body temperature 96.91 [degF] Bethany Clemons MD Work Phone: [facility] Work Phone: 10-30-2020 13:02-0400 Body weight 87.09 kg Bethany Clemons MD Work Phone: [facility] Work Phone: 09-22-2020 05:01-0400 Diastolic blood pressure [...] 06-26-2020 21:50-0500 BP Diastolic 71 mm[Hg] Abelardo Rios [facility] Work Phone: 06-26-2020 21:50-0500 BP Systolic 118 mm[Hg] Abelardo Rios [facility] Work Phone: 06-26-2020 21:50-0500 Pulse (Heart Rate) 84 /min Abelardo BARNETT Work Phone: 06-26-2020 21:50-0500 Pulse Oximetry 96 [...] 95 /min Elizabeth Moura MD Work Phone: [facility] Work Phone: 05-16-2019 23:00-0500 Respiratory rate 18 /min Elizabeth Moura MD Work Phone: [facility] Work Phone: 05-16-2019 23:00-0500 SaO2% (BldA) [Mass fraction] 100 % Elizabeth Moura MD Work Phone: [facility] Work Phone: 05-16-2019 23:00-0500 Systolic blood pressure 115 mm[Hg] Elizabeth Moura MD Work Phone: [facility] Work Phone: 05-16-2019 19:57-0500 Body temperature 98.49 [degF] Elizabeth Moura MD Work Phone: [facility] Work Phone: NEGATED: Highlighted [id number] 14:34-0500 BMI (Body Mass Index) 22.16 kg/m2 Ana Diesch [employer] [facility] Work Phone: NEGATED: Highlighted [id number] 14:34-0500 Body weight 78.02 kg Ana Diesch [employer] [facility] Work Phone: NEGATED: Highlighted [id number] 14:34-0500 Body weight 78 kg Ana Diesch [employer] [facility] Work Phone: NEGATED: Highlighted [id number] 14:34-0500 BP Diastolic 66 mm[Hg] Ana Diesch [employer] [facility] Work Phone: NEGATED: Highlighted [id number] 14:34-0500 BP Systolic 102 mm[Hg] Ana Diesch [employer] [facility] Work Phone: NEGATED: Highlighted [id number] 14:34-0500 Height 187.96 cm Ana Diesch [employer] [facility] Work Phone: NEGATED: Highlighted [id number] 14:34-0500 Height 188 cm Ana Diesch [employer] [facility] Work Phone: NEGATED: Highlighted [id number] 14:34-0500 Pulse (Heart Rate) 104 /min Ana Diesch [employer] [facility] Work Phone: Encounters Encounter Date Encounter Type Care Provider Facility Start: 02-21-2025 ambulatory Renard GARLAND Faci lity:[facility] Start: 02-17-2025 ambulatory Renard GARLAND Faci lity:[facility] Start: 02-10-2025 ambulatory Renard GARLAND Faci lity:[facility] Start: 02-03-2025 ambulatory Renard GARLAND Faci lity:[facility] Start: 01-27-2025 ambulatory Renard Amezquitaros OLS Faci lity:[facility] Start: 01-20-2025 ambulatory Renard Burgos OLS Faci lity:[facility] Start: 01-13-2025 ambulatory Renard Amezquitaros OLS Faci lity:[facility] Start: 01-10-2025 ambulatory Renard Amezquitaros OLS Faci lity:[facility] Start: 01-06-2025 ambulatory Renard Amezquitaros OLS Faci lity:[facility] Start: 12-31-2024 ambulatory Renard Amezquitaros OLS Faci lity:[facility] Start: 12-23-2024 End: 12-23-2024 ambulatory Renard Burgos OLS Facility:[facility] Start: 12-16-2024 ambulatory Renard Shellieros OLS Faci lity:[facility] Start: 12-09-2024 ambulatory Renard Amezquitaros OLS Faci lity:[facility] Start: 12-02-2024 ambulatory Renard Burgos OLS Faci lity:[facility] Start: 11-25-2024 ambulatory Renard Burgos OLS Faci lity:[facility] Start: 11-25-2024 Registered Referred Renard Burgos - [facility] Start: 11-18-2024 ambulatory Renard Burgos OLS Faci lity:[facility] Start: 11-18-2024 Registered Referred Renard Burgos - [facility] Start: 11-11-2024 ambulatory Renard Burgos OLS Faci lity:[facility] Start: 11-11-2024 Registered Referred Renard Burgos - [facility] Start: 11-04-2024 ambulatory Renard Burgos OLS Faci lity:[facility] Start: 11-04-2024 Registered Referred Renard Burgos - [facility] Start: 10-28-2024 ambulatory Renard Burgos OLS Faci lity:[facility] Start: 10-28-2024 Registered Referred Renard Burgos - [facility] Start: 10-21-2024 End: 10-21-2024 ambulatory Renard Burgos OLS -[facility] Start: 10-21-2024 End: 10-21-2024 Departed Referred Renard Burgos -[facility] Start: 10-21-2024 Registered Referred Renard Burgos - [facility] Start: 10-21-2024 End: 10-21-2024 ambulatory Renard GARLAND Facility:[facility] Start: 10-14-2024 ambulatory Renard GARLAND Faci lity:[facility] Start: 10-14-2024 Registered Referred Renard Burgos - [facility] Start: 10-07-2024 ambulatory Renard GARLAND Faci lity:[facility] Start: 10-07-2024 Registered Referred Renard Burgos - [facility] Start: 09-30-2024 ambulatory Renard GARLAND Faci lity:[facility] Start: 09-30-2024 Registered Referred Renard Burgos - [facility] Start: 09-24-2024 End: 09-24-2024 ambulatory Renard GARLAND -[facility] Start: 09-24-2024 End: 09-24-2024 Departed Referred Renard Burgos -[facility] Start: 09-24-2024 Registered Referred Renard Burgos - [facility] Start: 09-24-2024 End: 09-24-2024 ambulatory Renard GARLAND Facility:[facility] Start: 09-16-2024 End: 09-16-2024 ambulatory Renard GARLAND -[facility] Start: 09-16-2024 End: 09-16-2024 Departed Referred Renard Burgos -[facility] Start: 09-16-2024 Registered Referred Renard Burgos - [facility] Start: 09-16-2024 End: 09-16-2024 ambulatory Renard GARLAND Facility:[facility] Start: 09-11-2024 End: 09-11-2024 ambulatory Renard GARLAND [facility] Work Phone: Start: 09-11-2024 End: 09-11-2024 Departed Referred Peter Katsaros -[facility] Start: 09-11-2024 Registered Referred Renard Amezquitaros - [facility] Start: 09-11-2024 End: 09-11-2024 ambulatory Renard GARLAND Facility:[facility] Start: 09-09-2024 End: 09-09-2024 ambulatory Renard GARLAND [facility] Work Phone: Start: 09-09-2024 End: 09-09-2024 Departed Referred Renard Amezquitaros -[facility] Start: 09-09-2024 Registered Referred Renard Hensleysaros - [facility] Start: 09-09-2024 End: 09-09-2024 ambulatory Renard GARLAND Facility:[facility] Start: 09-02-2024 End: 09-02-2024 ambulatory Renard GARLAND [facility] Work Phone: Start: 09-02-2024 End: 09-02-2024 Departed Referred Renard Amezquitaros -[facility] Start: 09-02-2024 Registered Referred Renard Amezquitaros - [facility] Start: 09-02-2024 End: 09-02-2024 ambulatory Renard GARLAND Facility:[facility] Start: 08-26-2024 End: 08-26-2024 ambulatory Renard GARLAND [facility] Work Phone: Start: 08-26-2024 End: 08-26-2024 Departed Referred Renard Amezquitaros -[facility] Start: 08-26-2024 Registered Referred Renard Amezquitaros - [facility] Start: 08-26-2024 End: 08-26-2024 ambulatory Renard GARLAND Facility:[facility] Start: 08-23-2024 End: 08-23-2024 Departed Referred Renard Burgos -[facility] Start: 08-23-2024 Registered Referred Renard Burgos - [facility] Start: 08-23-2024 End: 08-23-2024 ambulatory Renard GARLAND Facility:[facility] Start: 08-19-2024 End: 08-19-2024 ambulatory Renard GARLAND [facility] Work Phone: Start: 08-19-2024 End: 08-19-2024 Departed Referred Renard Burgos -[facility] Start: 08-19-2024 Registered Referred Renard Burgos - [facility] Start: 08-19-2024 End: 08-19-2024 ambulatory Renard GARLAND Facility:[facility] Start: 08-12-2024 End: 08-12-2024 ambulatory Renard GARLAND [facility] Work Phone: Start: 08-12-2024 End: 08-12-2024 Departed Referred Renard Burgos -[facility] Start: 08-12-2024 Registered Referred Renard Burgos - [facility] Start: 08-12-2024 End: 08-12-2024 ambulatory Renard GARLAND Facility:[facility] Start: 08-05-2024 End: 08-05-2024 Departed Referred Renard Burgos -[facility] Start: 08-05-2024 Registered Referred Renard Burgos - [facility] Start: 08-05-2024 End: 08-05-2024 ambulatory Renard GARLAND Facility:[facility] Start: 07-29-2024 End: 07-29-2024 ambulatory Renard GARLAND [facility] Work Phone: Start: 07-29-2024 End: 07-29-2024 Departed Referred Renard Burgos -[facility] Start: 07-29-2024 Registered Referred Renard Burgos - [facility] Start: 07-29-2024 End: 07-29-2024 ambulatory Renard GARLAND Facility:[facility] Start: 07-22-2024 End: 07-22-2024 ambulatory Renard GARLAND [facility] Work Phone: Start: 07-22-2024 End: 07-22-2024 Departed Referred Renard Burgos -[facility] Start: 07-22-2024 Registered Referred Renard Amezquitaros - [facility] Start: 07-22-2024 End: 07-22-2024 ambulatory Renard GARLAND Facility:[facility] Start: 07-16-2024 End: 07-16-2024 ambulatory Renard Hensleyrustam GARLAND [facility] Work Phone: Start: 07-16-2024 End: 07-16-2024 Departed Referred Renard Amezquitaros -[facility] Start: 07-16-2024 Registered Referred Renard Amezquitaros - [facility] Start: 07-15-2024 End: 07-16-2024 ambulatory Renard GARLAND [facility] Work Phone: Start: 07-15-2024 End: 07-15-2024 Departed Referred Renard Burgos -[facility] Start: 07-15-2024 Registered Referred Renard Burgos - [facility] Start: 07-15-2024 End: 07-15-2024 ambulatory Renard GARLAND Facility:[facility] Start: 07-08-2024 End: 07-08-2024 ambulatory Renard Shellierustam GARLAND [facility] Work Phone: Start: 07-08-2024 End: 07-08-2024 Departed Referred Renard Amezquitaros -[facility] Start: 07-08-2024 Registered Referred Renard Amezquitaros - [facility] Start: 07-08-2024 End: 07-08-2024 ambulatory Renard GARLAND Facility:[facility] Start: 07-01-2024 End: 07-01-2024 ambulatory Renard GARLAND [facility] Work Phone: Start: 07-01-2024 End: 07-01-2024 Departed Referred Renard Burgos -[facility] Start: 07-01-2024 Registered Referred Renard Burgos - [facility] Start: 07-01-2024 End: 07-01-2024 ambulatory Renard GARLAND Facility:[facility] Start: 06-27-2024 End: 06-27-2024 ambulatory Renard Shelliehola GARLAND [facility] Work Phone: Start: 06-27-2024 End: 06-27-2024 Departed Referred Renard Burgos -[facility] Start: 06-27-2024 Registered Referred Renard Burgos - [facility] Start: 06-27-2024 End: 06-27-2024 ambulatory Renard GARLAND Facility:[facility] Start: 06-24-2024 End: 06-24-2024 Subsequent hospital visit by physician Rashaad Pink NP Work Phone: [facility] Comment on above: Chronic cough Start: 06-24-2024 End: 06-24-2024 ambulatory RASHAAD SMITH [facility] Start: 06-24-2024 End: 06-24-2024 Departed Referred Renard Burgos -[facility] Start: 06-24-2024 Registered Referred Renard Burgos - [facility] Start: 06-24-2024 End: 06-24-2024 ambulatory Renard GARLAND Facility:[facility] Start: 06-17-2024 End: 06-17-2024 ambulatory Renard GARLAND [facility] Work Phone: Start: 06-17-2024 End: 06-17-2024 Departed Referred Renard Burgos -[facility] Start: 06-17-2024 Registered Referred Renard Burgos - [facility] Start: 06-17-2024 End: 06-17-2024 ambulatory Renard GARLAND Facility:[facility] Start: 06-12-2024 End: 09-11-2024 Transcribe Orders Rashaad Pink NP Work Phone: [facility] Comment on above: Chronic cough (Prima ry Dx) Start: 06-10-2024 End: 06-10-2024 ambulatory Renard Shellierustam GILL [facility] Work Phone: Start: 06-10-2024 End: 06-10-2024 Departed Referred Renard Burgos -[facility] Start: 06-10-2024 Registered Referred Rneard Burgos - [facility] Start: 06-10-2024 End: 06-10-2024 ambulatory Renard GARLAND Facility:[facility] Start: 06-07-2024 End: 06-07-2024 ambulatory Renard GARLAND [facility] Work Phone: Start: 06-07-2024 End: 06-07-2024 Departed Referred Renard Burgos -[facility] Start: 06-07-2024 Registered Referred Renard Burgos - [facility] Start: 06-07-2024 End: 06-07-2024 ambulatory Renard GARLAND Facility:[facility] Start: 06-03-2024 End: 06-03-2024 ambulatory Renard GARLAND [facility] Work Phone: Start: 06-03-2024 End: 06-03-2024 Departed Referred Renard Burgos -[facility] Start: 06-03-2024 End: 06-03-2024 ambulatory Renard GARLAND Facility:[facility] Start: 05-27-2024 End: 05-27-2024 Departed Referred Renard Burgos -[facility] Start: 05-27-2024 End: 05-27-2024 ambulatory Renard GARLAND Facility:[facility] Start: 05-20-2024 End: 05-20-2024 Departed Referred Renard Burgos -[facility] Start: 05-20-2024 End: 05-20-2024 ambulatory Renard GARLAND Facility:[facility] Start: 05-13-2024 End: 05-13-2024 Departed Referred Renard Burgos -[facility] Start: 05-13-2024 End: 05-13-2024 ambulatory Renard GARLAND Facility:[facility] Start: 05-06-2024 End: 05-06-2024 Departed Referred Renard Burgos -[facility] Start: 05-06-2024 End: 05-06-2024 ambulatory Renard GARLAND Facility:[facility] Start: 05-03-2024 End: 05-03-2024 Telephone encounter Renard Burgos Work Phone: [facility] Comment on above: Other Start: 04-29-2024 End: 04-29-2024 Departed Referred Renard Burgos -[facility] Start: 04-29-2024 End: 04-29-2024 ambulatory Renard GARLAND Facility:[facility] Start: 04-22-2024 End: 04-22-2024 Departed Referred Renard Burgos -[facility] Start: 04-22-2024 End: 04-22-2024 ambulatory Renard GARLAND Facility:[facility] Start: 04-15-2024 End: 04-15-2024 Departed Referred Renard Burgos -[facility] Start: 04-15-2024 End: 04-15-2024 ambulatory Renard GARLAND Facility:[facility] Start: 04-08-2024 ambulatory Renard GARLAND Faci lity:[facility] Start: 04-08-2024 Registered Referred Renard Amezquitaros - [facility] Start: 04-01-2024 ambulatory Renard GARLAND Faci lity:[facility] Start: 04-01-2024 Registered Referred Renard Burgos - [facility] Start: 03-25-2024 End: 03-25-2024 Departed Referred Renard Amezquitaros -[facility] Start: 03-25-2024 End: 03-25-2024 ambulatory Renard GARLAND Facility:[facility] Start: 03-18-2024 End: 03-18-2024 Departed Referred Renard Burgos -[facility] Start: 03-18-2024 End: 03-18-2024 ambulatory Renard GARLAND Facility:[facility] Start: 03-11-2024 End: 03-11-2024 Departed Referred Renard Amezquitaros -[facility] Start: 03-11-2024 End: 03-11-2024 ambulatory Renard GARLAND Facility:[facility] Start: 03-04-2024 End: 03-04-2024 ambulatory Renard Shellierustam OLS Facility:[facility] Start: 02-26-2024 End: 02-26-2024 ambulatory Renard Burgos OLS Facility:[facility] Start: 11-22-2023 End: 11-22-2023 ambulatory RENARD BURGOS [facility] Start: 11-22-2023 End: 11-22-2023 Subsequent hospital visit by physician Renard Burgos Work Phone: [facility] X-ray Imaging Comment on above: Dysphagia, oropharyn geal phase; Feeding difficulties Start: 10-16-2023 End: 01-15-2024 Transcribe Orders Renard Burgos Work Phone: [facility] Central Scheduling Comment on above: Dysphagia, oropharyn geal phase (Primary Dx); Feeding difficulties Start: 10-02-2023 End: 10-02-2023 Emergency department patient visit Fei Farooq MD Work Phone: [facility] ED Comment on above: Dyspnea, unspecified type (Primary Dx) Start: 08-07-2023 Registered Referred [facility] Start: 07-31-2023 End: 07-31-2023 ambulatory [facility] Work Phone: Start: 07-31-2023 End: 07-31-2023 Departed Referred [facility] Start: 07-31-2023 Registered Referred [facility] [employer] Start: 07-24-2023 End: 07-24-2023 ambulatory [facility] Work Phone: Start: 07-24-2023 End: 07-24-2023 Departed Referred [facility] Start: 07-17-2023 End: 07-17-2023 ambulatory [facility] Work Phone: Start: 07-17-2023 End: 07-17-2023 Departed Referred [facility] Start: 07-17-2023 Registered Referred [facility] [employer] Start: 07-10-2023 End: 07-10-2023 ambulatory [facility] Work Phone: Start: 07-10-2023 End: 07-10-2023 Departed Referred [facility] [employer] Start: 07-10-2023 Registered Referred [facility] [employer] Start: 07-03-2023 End: 07-03-2023 ambulatory [facility] Work Phone: Start: 07-03-2023 End: 07-03-2023 [facility] Start: 07-03-2023 [facility] Start: 06-26-2023 [facility] Start: 06-19-2023 End: 06-19-2023 ambulatory [facility] Work Phone: Start: 06-19-2023 End: 06-19-2023 [facility] Start: 06-19-2023 Registered Referred [facility] [employer] Start: 06-12-2023 End: 06-12-2023 ambulatory [facility] Work Phone: Start: 06-12-2023 End: 06-12-2023 [facility] Start: 06-12-2023 Registered Referred [facility] [employer] Start: 06-05-2023 End: 06-05-2023 ambulatory [facility] Work Phone: Start: 06-05-2023 End: 06-05-2023 [facility] Start: 06-05-2023 [facility] Start: 05-29-2023 End: 05-29-2023 [facility] Start: 05-29-2023 Registered Referred [facility] [employer] Start: 05-22-2023 End: 05-22-2023 ambulatory [facility] Work Phone: Start: 05-22-2023 End: 05-22-2023 Departed Referred [facility] [employer] Start: 05-22-2023 Registered Referred [facility] [employer] Start: 05-15-2023 End: 05-15-2023 Departed Referred [facility] [employer] Start: 05-15-2023 Registered Referred [facility] [employer] Start: 05-08-2023 End: 05-08-2023 ambulatory [facility] Work Phone: Start: 05-08-2023 End: 05-08-2023 [facility] Start: 04-17-2023 End: 04-17-2023 ambulatory [facility] Work Phone: Start: 04-17-2023 End: 04-17-2023 Departed Referred [facility] [employer] Start: 04-17-2023 Registered Referred [facility] [employer] Start: 04-14-2023 End: 04-14-2023 ambulatory [facility] Work Phone: Start: 04-14-2023 End: 04-14-2023 Departed Referred [facility] [employer] Start: 04-14-2023 Registered Referred [facility] [employer] Start: 04-10-2023 End: 04-10-2023 Departed Referred [facility] [employer] Start: 04-10-2023 Registered Referred [facility] [employer] Start: 04-03-2023 End: 04-03-2023 ambulatory [facility] Work Phone: Start: 04-03-2023 End: 04-03-2023 Departed Referred [facility] [employer] Start: 04-03-2023 [facility] Start: 03-27-2023 End: 03-27-2023 ambulatory [facility] Work Phone: Start: 03-27-2023 End: 03-27-2023 [facility] Start: 03-27-2023 [facility] Start: 03-20-2023 End: 03-20-2023 ambulatory [facility] Work Phone: Start: 03-20-2023 End: 03-20-2023 [facility] Start: 03-20-2023 [facility] [facility] Start: 03-16-2023 End: 03-16-2023 ambulatory [facility] Work Phone: Start: 03-16-2023 End: 03-16-2023 [facility] Start: 03-16-2023 [facility] [facility] Start: 03-13-2023 End: 03-13-2023 ambulatory [facility] Work Phone: Start: 03-13-2023 End: 03-13-2023 [facility] Start: 03-06-2023 End: 03-06-2023 ambulatory [facility] Work Phone: Start: 03-06-2023 End: 03-06-2023 [facility] Start: 03-06-2023 [facility] Start: 02-27-2023 End: 02-27-2023 ambulatory [facility] Work Phone: Start: 02-27-2023 End: 02-27-2023 Departed Referred [facility] [employer] Start: 02-20-2023 End: 02-20-2023 ambulatory [facility] Work Phone: Start: 02-20-2023 End: 02-20-2023 Departed Referred [facility] [employer] Start: 02-20-2023 Registered Referred [facility] [employer] Start: 02-13-2023 End: 02-13-2023 ambulatory [facility] Work Phone: Start: 02-13-2023 End: 02-13-2023 Departed Referred [facility] [employer] Start: 02-13-2023 Registered Referred [facility] Start: 02-06-2023 End: 02-06-2023 ambulatory [facility] Work Phone: Start: 02-06-2023 End: 02-06-2023 Departed Referred [facility] [employer] Start: 02-06-2023 Registered Referred [facility] [employer] Start: 01-30-2023 End: 01-30-2023 ambulatory [facility] Work Phone: Start: 01-30-2023 End: 01-30-2023 Departed Referred [facility] [employer] Start: 01-30-2023 Registered Referred [facility] [employer] Start: 01-23-2023 End: 01-23-2023 Departed [facility] [employer] Start: 01-23-2023 Registered Referred [facility] [employer] Start: 01-16-2023 End: 01-16-2023 ambulatory [facility] Work Phone: Start: 01-16-2023 End: 01-16-2023 Departed Referred [facility] [employer] Start: 01-16-2023 Registered Referred [facility] [employer] Start: 01-09-2023 End: 01-09-2023 [facility] Start: 01-09-2023 [facility] Start: 01-03-2023 End: 01-03-2023 ambulatory [facility] Work Phone: Start: 01-03-2023 End: 01-03-2023 [facility] Start: 01-03-2023 [facility] Start: 12-26-2022 End: 12-26-2022 ambulatory [facility] Work Phone: Start: 12-26-2022 End: 12-26-2022 [facility] Start: 12-26-2022 [facility] Start: 12-19-2022 End: 12-19-2022 ambulatory [facility] Work Phone: Start: 12-19-2022 End: 12-19-2022 [facility] Start: 12-19-2022 Registered Referred [facility] [employer] Start: 12-12-2022 End: 12-12-2022 [facility] Start: 12-12-2022 [facility] [facility] Start: 12-05-2022 End: 12-05-2022 ambulatory [facility] Work Phone: Start: 12-05-2022 End: 12-05-2022 [facility] Start: 12-05-2022 [facility] Start: 11-28-2022 End: 11-28-2022 ambulatory [facility] Work Phone: Start: 11-28-2022 End: 11-28-2022 Departed Referred [facility] [employer] Start: 11-28-2022 [facility] Start: 11-21-2022 End: 11-21-2022 ambulatory [facility] Work Phone: Start: 11-21-2022 End: 11-21-2022 [facility] [facility] Start: 11-21-2022 [facility] [facility] Start: 11-14-2022 End: 11-14-2022 ambulatory [facility] Work Phone: Start: 11-14-2022 End: 11-14-2022 [facility] Start: 11-14-2022 [facility] Start: 11-07-2022 [facility] Start: 10-31-2022 End: 10-31-2022 ambulatory [facility] Work Phone: Start: 10-31-2022 End: 10-31-2022 [facility] Start: 10-31-2022 [facility] Start: 10-24-2022 End: 10-24-2022 ambulatory [facility] Work Phone: Start: 10-24-2022 End: 10-24-2022 [facility] Start: 10-24-2022 [facility] [employer] [facility] Start: 10-17-2022 End: 10-17-2022 [facility] Start: 10-17-2022 [facility] Start: 10-10-2022 End: 10-10-2022 ambulatory [facility] Work Phone: Start: 10-10-2022 End: 10-10-2022 Departed Referred [facility] [employer] Start: 10-10-2022 Registered Referred [facility] [employer] Start: 10-03-2022 End: 10-03-2022 ambulatory [facility] Work Phone: Start: 10-03-2022 End: 10-03-2022 Departed Referred [facility] [employer] Start: 09-19-2022 End: 09-19-2022 [facility] Start: 09-19-2022 Registered Referred [facility] [employer] Start: 09-12-2022 End: 09-12-2022 ambulatory [facility] Work Phone: Start: 09-12-2022 End: 09-12-2022 [facility] Start: 09-05-2022 End: 09-05-2022 [facility] Start: 09-05-2022 Registered Referred [facility] [employer] Start: 08-29-2022 End: 08-29-2022 Departed Referred [facility] [employer] Start: 08-29-2022 Registered Referred [facility] [employer] Start: 08-22-2022 End: 08-22-2022 ambulatory [facility] Work Phone: Start: 08-22-2022 End: 08-22-2022 Departed Referred [facility] [employer] Start: 08-22-2022 Registered Referred [facility] [employer] Start: 08-15-2022 End: 08-15-2022 ambulatory [facility] Work Phone: Start: 08-15-2022 End: 08-15-2022 [facility] Start: 08-15-2022 Registered Referred [facility] [employer] Start: 08-08-2022 End: 08-08-2022 Departed Referred [facility] [employer] Start: 08-08-2022 [facility] [employer] Start: 08-01-2022 End: 08-01-2022 ambulatory [facility] Work Phone: Start: 08-01-2022 End: 08-01-2022 [facility] [employer] [facility] Start: 08-01-2022 [facility] [employer] Start: 07-25-2022 End: 07-25-2022 ambulatory [facility] Work Phone: Start: 07-25-2022 End: 07-25-2022 [facility] Start: 07-25-2022 Registered Referred [facility] [employer] Start: 07-19-2022 End: 07-19-2022 [facility] [employer] [facility] Start: 07-19-2022 Registered Referred [facility] [employer] Start: 07-18-2022 End: 07-18-2022 ambulatory [facility] Work Phone: Start: 07-18-2022 End: 07-18-2022 [facility] [employer] Start: 07-18-2022 Registered [facility] [employer] Start: 07-11-2022 End: 07-11-2022 ambulatory [facility] Work Phone: Start: 07-11-2022 End: 07-11-2022 [facility] [employer] [facility] Start: 07-11-2022 Registered [facility] [employer] Start: 07-04-2022 End: 07-04-2022 [facility] [employer] [facility] Start: 07-04-2022 Registered [facility] [employer] Start: 06-27-2022 End: 06-27-2022 ambulatory [facility] Work Phone: Start: 06-27-2022 End: 06-27-2022 [facility] [employer] Start: 06-27-2022 [facility] [employer] Start: 06-20-2022 End: 06-20-2022 ambulatory [facility] Work Phone: Start: 06-20-2022 End: 06-20-2022 [facility] [employer] Start: 06-20-2022 [facility] [employer] Start: 06-13-2022 End: 06-13-2022 ambulatory [facility] Work Phone: Start: 06-13-2022 End: 06-13-2022 [facility] [employer] Start: 06-13-2022 [facility] [employer] [facility] Start: 06-06-2022 End: 06-06-2022 [facility] Start: 06-06-2022 [facility] [employer] [facility] Start: 05-30-2022 End: 05-30-2022 ambulatory [facility] Work Phone: Start: 05-30-2022 End: 05-30-2022 [facility] Start: 05-23-2022 End: 05-23-2022 ambulatory [facility] Work Phone: Start: 05-23-2022 End: 05-23-2022 [facility] [employer] Start: 05-23-2022 [facility] [employer] [facility] Start: 05-20-2022 End: 05-20-2022 Emergency department patient visit Abelardo Rios DO Work Phone: [facility] ED Comment on above: Dislodged gastrostom y tube (Primary Dx) Start: 05-16-2022 End: 05-16-2022 [facility] Start: 05-16-2022 [facility] [employer] Start: 05-09-2022 End: 05-09-2022 ambulatory [facility] Work Phone: Start: 05-09-2022 End: 05-09-2022 [facility] [employer] [facility] Start: 05-09-2022 [facility] Start: 05-03-2022 End: 05-03-2022 ambulatory [facility] Work Phone: Start: 05-03-2022 End: 05-03-2022 [facility] [employer] [facility] Start: 05-03-2022 Reg[facility] [facility] Start: 04-26-2022 End: 04-26-2022 [facility] Start: 04-26-2022 [facility] [employer] Start: 04-18-2022 End: 04-18-2022 ambulatory [facility] Work Phone: Start: 04-18-2022 End: 04-18-2022 [facility] Start: 04-18-2022 [facility] [employer] [facility] Start: 04-14-2022 End: 04-14-2022 ambulatory [facility] Work Phone: Start: 04-14-2022 End: 04-14-2022 [facility] [employer] Start: 04-14-2022 Reg[facility] [employer] [facility] Start: 04-11-2022 End: 04-11-2022 ambulatory [facility] Work Phone: Start: 04-11-2022 End: 04-11-2022 Departed Ref[facility] [employer] Start: 04-11-2022 Registered Referred [facility] [employer] Start: 04-04-2022 End: 04-04-2022 ambulatory [facility] Work Phone: Start: 04-04-2022 End: 04-04-2022 Departed Referred [facility] [employer] Start: 04-04-2022 Registered Referred [facility] [employer] Start: 03-28-2022 End: 03-28-2022 ambulatory [facility] Work Phone: Start: 03-28-2022 End: 03-28-2022 [facility] [facility] Start: 03-28-2022 [facility] [facility] Start: 03-21-2022 End: 03-21-2022 ambulatory [facility] Work Phone: Start: 03-21-2022 End: 03-21-2022 Departed Referred [facility] [employer] Start: 03-21-2022 Registered Referred [facility] [employer] Start: 03-14-2022 End: 03-14-2022 Departed Referred [facility] [employer] Start: 03-14-2022 Registered Referred [facility] [employer] Start: 2022 End: 2022 ambulatory [facility] Work Phone: Start: 2022 End: 2022 Departed Referred [facility] [employer] Start: 2022 Registered Referred [facility] [employer] Start: 02-28-2022 End: 02-28-2022 Departed Referred [facility] [employer] Start: 02-28-2022 Registered Referred [facility] [employer] Start: 02-21-2022 End: 02-21-2022 ambulatory [facility] Work Phone: Start: 02-21-2022 End: 02-21-2022 Departed Referred [facility] [employer] Start: 02-21-2022 Registered Referred [facility] [employer] Start: 02-14-2022 End: 02-14-2022 ambulatory [facility] Work Phone: Start: 02-14-2022 End: 02-14-2022 Departed Referred [facility] [employer] Start: 02-14-2022 Registered Referred [facility] [employer] Start: 02-07-2022 End: 02-07-2022 ambulatory [facility] Work Phone: Start: 02-07-2022 End: 02-07-2022 Departed Referred [facility] [employer] Start: 02-07-2022 Registered Referred [facility] [employer] Start: 01-31-2022 End: 01-31-2022 ambulatory [facility] Work Phone: Start: 01-31-2022 End: 01-31-2022 Departed Referred [facility] [employer] Start: 01-31-2022 Registered Referred [facility] [employer] Start: 01-24-2022 End: 01-24-2022 ambulatory [facility] Work Phone: Start: 01-24-2022 End: 01-24-2022 Departed Referred [facility] [employer] Start: 01-24-2022 Registered [facility] [employer] Start: 01-17-2022 End: 01-17-2022 Departed Referred [facility] [employer] Start: 01-17-2022 Registered [facility] [employer] Start: 01-10-2022 End: 01-10-2022 ambulatory [facility] Work Phone: Start: 01-10-2022 End: 01-10-2022 [facility] Start: 01-10-2022 Registered Referred [facility] [employer] Start: 01-04-2022 End: 01-04-2022 ambulatory [facility] Work Phone: Start: 01-04-2022 End: 01-04-2022 [facility] Start: 01-04-2022 [facility] Start: 12-27-2021 End: 12-27-2021 ambulatory [facility] Work Phone: Start: 12-27-2021 End: 12-27-2021 [facility] Start: 12-27-2021 [facility] Start: 12-20-2021 End: 12-20-2021 ambulatory [facility] Work Phone: Start: 12-20-2021 End: 12-20-2021 [facility] Start: 12-20-2021 [facility] [employer] [facility] Start: 12-13-2021 End: 12-13-2021 [facility] [facility] Start: 12-13-2021 Registered Referred [facility] [employer] Start: 12-06-2021 End: 12-06-2021 ambulatory [facility] Work Phone: Start: 12-06-2021 End: 12-06-2021 [facility] Start: 12-06-2021 Reg[facility] [employer] [facility] Start: 11-29-2021 End: 11-29-2021 ambulatory [facility] Work Phone: Start: 11-29-2021 End: 11-29-2021 Departed Referred [facility] [employer] Start: 11-29-2021 Registered Referred [facility] [employer] Start: 11-22-2021 End: 11-22-2021 Departed Referred [facility] [employer] Start: 11-22-2021 Registered Referred [facility] [employer] Start: 11-15-2021 End: 11-15-2021 [facility] Start: 11-15-2021 Registered Referred [facility] [employer] Start: 11-08-2021 End: 11-08-2021 [facility] Start: 10-25-2021 Registered Referred [facility] [employer] Start: 10-18-2021 Registered Referred [facility] [employer] Start: 10-11-2021 Registered Referred [facility] [employer] Start: 10-04-2021 Registered Referred [facility] [employer] Start: 09-28-2021 End: 09-28-2021 Departed Referred [facility] [employer] Start: 09-28-2021 Registered [facility] Start: 09-20-2021 End: 09-20-2021 Departed Referred [facility] Start: 09-20-2021 Registered [facility] Start: 09-13-2021 End: 09-13-2021 Departed [facility]erred [facility] Start: 09-13-2021 Registered [facility] Start: 09-06-2021 End: 09-06-2021 Departed [facility] Start: 09-06-2021 Registered [facility] Start: 08-30-2021 End: 08-30-2021 Departed [facility]erred [facility] Start: 08-30-2021 Registered [facility] Start: 08-23-2021 End: 08-23-2021 Departed [facility]erred [facility] Start: 08-23-2021 Registered [facility] Start: 08-18-2021 End: 08-18-2021 Departed Referred [facility] Start: 08-18-2021 Registered [facility] Start: 08-16-2021 End: 08-16-2021 [facility]arted [facility] Start: 08-16-2021 Registered Ref[facility] Start: 08-09-2021 End: 08-09-2021 Departed [facility]erred [facility] Start: 08-02-2021 End: 08-02-2021 Departed [facility]erred [facility] Start: 08-02-2021 Registered Ref[facility] Start: 07-26-2021 End: 07-26-2021 Departed [facility]erred [facility] Start: 07-26-2021 Registered [facility] Start: 07-19-2021 End: 07-19-2021 Departed [facility]erred [facility] Start: 07-19-2021 Registered Ref[facility] Start: 07-12-2021 End: 07-12-2021 Departed [facility] Start: 07-05-2021 End: 07-05-2021 Departed [facility] Start: 07-05-2021 Registered Ref[facility] Start: 06-28-2021 End: 06-28-2021 Departed [facility] Start: 06-28-2021 Registered [facility] Start: 06-21-2021 End: 06-21-2021 Departed [facility] Start: 06-21-2021 Registered [facility] Start: 06-14-2021 Registered [facility] Start: 06-07-2021 End: 06-07-2021 Departed [facility] Start: 06-07-2021 Registered [facility] Start: 05-31-2021 End: 05-31-2021 Departed [facility] Start: 05-31-2021 Registered [facility] Start: 05-24-2021 End: 05-24-2021 Departed [facility] Start: 05-17-2021 Registered [facility] Start: 05-15-2021 End: 05-15-2021 Emergency department patient visit Timothy Michealdelvin Stovall Phone: [facility] [place] Comment on above: PEG tube malfunction (HCC) (Primary Dx) Start: 05-14-2021 Registered Referred [facility] Start: 05-10-2021 Registered [facility] Start: 05-03-2021 Registered [facility] Start: 04-26-2021 Registered [facility] Start: 04-19-2021 Registered [facility] Start: 04-12-2021 Registered [facility] Start: 04-07-2021 Registered Referred [facility] Start: 03-19-2021 End: 03-24-2021 Evaluation and management of inpatient Brady Desai DO Work Phone: [facility] [employer] Comment on above: Respiratory syncytia l virus (RSV) (Primary Dx); Hypoxia Start: 03-18-2021 End: 03-18-2021 Emergency department patient visit Boo Castro MD Work Phone: [facility] Comment on above: Respiratory syncytia l virus (RSV) (Primary Dx); Hypoxia Start: 10-30-2020 End: 10-30-2020 Emergency department patient visit Bethany Clemons MD Work Phone: [facility] Comment on above: Feeding tube dysfunc tion, initial encounter (Primary Dx) Start: 09-22-2020 End: 09-22-2020 Emergency department patient visit Elizabeth Moura MD Work Phone: [facility] Comment on above: PEG tube malfunction (HCC) (Primary Dx) Start: 06-26-2020 End: 06-26-2020 Emergency department patient visit Abelardo Yuly Rios Work Phone: [facility] Comment on above: PEG tube malfunction (HCC) (Primary Dx) Start: 05-22-2019 End: 05-22-2019 Patient encounter procedure Jarvis Kendall MD Work Phone: [facility] Work Phone: Start: 05-22-2019 End: 05-22-2019 Pt evaluation Jarvis Kendall MD Work Phone: [facility] Work Phone: Start: 05-16-2019 End: 05-16-2019 Emergency department patient visit Elizabeth Moura MD Work Phone: [facility] Comment on above: Contusion of right h ip, initial encounter (Primary Dx) Start: 08-15-2018 Evaluation and management of inpatient UNKNOWN PROVIDER [facility] Start: 07-08-2018 Evaluation and management of inpatient JORDAN GEUBE [facility] Start: 01-02-2003 End: 01-02-2003 Patient encounter procedure Beni Vera Work Phone: [facility] Start: 01-02-2003 Results Only Beni Vera Work Phone: [facility] Procedures Date Procedure Procedure Detail Performing Clinician [...] Start: 03-18-2021 Ct angiography head w/contrast/noncontrast Boo Csatro MD Work Phone: Start: 03-18-2021 Ct angiography [...] Phone: Start: 10-30-2020 FEEDING TUBE REPLACEMENT Helen L Janas PA Work Phone: Start: 09-22-2020 Contrast injection p [...] EMDF, PT, BMP3M, PHOS3, MG3, CK3 #### [facility] [address], [place] #### [id number] #### [facility] [address] [place] [address] Start: 07-27-2018 Microscopic examinat ion of blood, culture Comment on above: Order Comment: Speci men Source Comment:Blood Performed By: #### H EMDF, PT, BMP3M, PHOS3, MG3, CK3 #### [facility] [address], [place] #### [id number] #### [facility] [address] [place] [address] Start: 07-19-2018 Microscopic examinat ion of blood, culture Comment on above: Order Comment: Speci men Source Comment:Blood Performed By: #### H EMDF, PT, BMP3M, PHOS3, MG3, CK3 #### [facility] [address], [place] #### [id number] #### [facility] [address] [place] [address] Start: 01-02-2003 CONVERTED SURGICAL PATHOLOGY Beni Vera Work Phone: Urine culture NEGATED: Highlighted rowStart: 05-22-2019 End: 05-22-2019 Documentation of current medications Ana Graham SALVADOR NEGATED: Highlighted rowStart: 05-22-2019 End: 05-22-2019 Smoking cessation education Ana Stevenson LPN Plan of Treatment Date Care Activity Detail Author Start: 2032 RSV Immunization for Adults (1 - 1-dose 75+ series) RSV Immunization for Adults (1 - 1-dose 75+ series) [facility] Start: 01-10-2027 DTaP/Tdap/Td vaccine (2 - Td or Tdap) DTaP/Tdap/Td vaccine (2 - Td or Tdap) [facility] Start: 01-10-2027 DTaP/Tdap/Td vaccine (2 - Td) DTaP/Tdap/Td vaccine (2 - Td) [facility] Work Phone: Start: 01-10-2027 DTaP/Tdap/Td Vaccine s (2 - Td or Tdap) DTaP/Tdap/Td Vaccines (2 - Td or Tdap) [facility] Start: 12-30-2024 Influenza vaccination Influenz a Vaccine (Season Ended) [facility] Start: 03-22-2024 Diabetes mellitus screening Diabetes Screening [facility] Start: 12-31-2023 COVID-19 Vaccine ( season) COVID-19 Vaccine ( season) [facility] Start: 12-31-2023 COVID-19 Vaccine ( season) COVID-19 Vaccine ( season) [facility] Start: 12-31-2023 COVID-19 Vaccine ( season) COVID-19 Vaccine ( season) [facility] Start: 12-31-2023 Influenza vaccination S [facility] Start: 01-30-2023 Bacteria identified in Urine by Culture Urine Culture [facility] Start: 01-30-2023 [facility] Start: 12-30-2022 COVID-19 Vaccine ( season) COVID-19 Vaccine ( season) [facility] Start: 2022 Pneumococcal 0-64 ye ars Vaccine (2 of 2 - PPSV23) Pneumococcal 0-64 years Vaccine (2 of 2 - PPSV23) [facility] Start: 2022 Pneumococcal 0-64 ye ars Vaccine (2 of 2) Pneumococcal 0-64 years Vaccine (2 of 2) [facility] Work Phone: Start: 2022 Pneumococcal Vaccine : 65+ Years (2 of 2 - PCV) Pneumococcal Vaccine: 65+ Years (2 of 2 - PCV) [facility] Start: 12-30-2021 Influenza vaccination Influenza Vacc ine (#1) [facility] Start: 12-30-2020 Influenza vaccination S [facility] Start: 12-31-2019 Influenza vaccination Flu vaccine (# 1) [facility] Work Phone: Start: 08-18-2019 A1C test (Diabetic o r Prediabetic) A1C test (Diabetic or Prediabetic) [facility] Work Phone: Start: 08-18-2019 HbA1c (Bld) [Mass fraction] A1C test (Diabetic or Prediabetic) [facility] Work Phone: Start: 08-18-2019 Hemoglobin A1c measurement A1C test (Diabetic or Prediabetic) [facility] Start: 05-22-2019 End: 05-22-2019 Appointment Appointment [facility] Work Phone: Start: 02-07-2019 Lipid panel Lipid screen [facility] Start: 02-07-2019 Lipid screen Lipid screen [facility] Work Phone: Start: 12-30-2018 Influenza vaccination Flu vaccine (# 1) [facility] Work Phone: Start: 01-10-2018 Pneumococcal Vaccine : 50+ Years (2 of 2 - PCV) Pneumococcal Vaccine: 50+ Years (2 of 2 - PCV) [facility] Start: 01-10-2018 Pneumococcal Vaccine : 65+ Years (2 - PCV) Pneumococcal Vaccine: 65+ Years (2 - PCV) [facility] Start: 2017 RSV Immunization age d 60 or older (1 - 1-dose 60+ series) RSV Immunization aged 60 or older (1 - 1-dose 60+ series) [facility] Start: 2007 Colon cancer screen colonoscopy Colon cancer screen colonoscopy [facility] Work Phone: Start: 2007 Screening for malign ant neoplasm of colon Colon cancer screen colonoscopy [facility] Work Phone: Start: 2007 Shingles Vaccine (1 of 2) Shingles Vaccine (1 of 2) [facility] Start: 2007 Zoster Vaccines (1 o f 2) Zoster Vaccines (1 of 2) [facility] Start: 2002 Screening for malign ant neoplasm of colon Colon cancer screen colonoscopy [facility] Start: 1976 Hepatitis A Vaccines (1 of 2 - Risk 2-dose series) Hepatitis A Vaccines (1 of 2 - Risk 2-dose series) [facility] Start: 1975 Hepatitis C screening Hepatitis C Sc reening [facility] Start: 1969 COVID-19 Vaccine (1) COVID-19 Vaccin e (1) [facility] Start: 1969 Depression Monitoring Depression Mon josepring [facility] Start: 1969 Depression Screen Depression Screen [facility] Start: 1962 COVID-19 Vaccine (1) COVID-19 Vaccin e (1) [facility] Start: 1957 COVID-19 Vaccine (#1) COVID-19 Vacci ne (#1) [facility] Start: 1957 Annual wellness visit Medicare Initial Physical (IPPE) [facility] Start: 1957 Hepatitis B Vaccines (1 of 3 - 3-dose series) Hepatitis B Vaccines (1 of 3 - 3-dose series) [facility] Start: 1957 Lipid panel Lipid Panel [facility] Start: 1957 Screening for malign ant neoplasm of colon [facility] Basic metabolic 2000 panel - Serum or Plasma Basic Metabolic Panel Lab Routine Daily until discontinued starting 03/23/2021, 2 completed [employer] Work Phone: Comment on above: Daily until disconti nued starting 03/23/2021, 2 completed CBC W Auto Different ial panel - Blood CBC Auto Differential Lab Routine Daily until discontinued starting 03/23/2021, 2 completed [employer] Work Phone: Comment on above: Daily until disconti nued starting 03/23/2021, 2 completed End: 06-24-2024 CT Chest WO contrast [facility] Work Phone: Comment on above: Once for 1 Occurrenc es starting 06/24/2024 until 06/24/2024 Culture, Blood 2 Culture, Blood 2 Microbiology STAT 03/19/2021 6:26 PM EST [employer] Work Phone: End: 03-20-2021 Culture, Respiratory Culture, Respiratory Microbiology Routine One Time for 1 Occurrences starting 03/20/2021 until 03/20/2021 [employer] Work Phone: Comment on above: One Time for 1 Occur rences starting 03/20/2021 until 03/20/2021 EKG 12 Lead EKG 12 Lead ECG STAT 03/18/2021 3:20 PM EST [employer] Work Phone: Feeding Tube Feeding Tube Pro cedures Routine 10/30/2020 2:22 PM EDT [facility] Work Phone: End: 09-22-2020 FL WATER SOLUBLE ENEMA W OR WO KUB FL WATER SOLUBLE ENEMA W OR WO KUB Imaging STAT Once for 1 Occurrences starting 09/22/2020 until 09/22/2020 [employer] Work Phone: Comment on above: Once for 1 Occurrenc es starting 09/22/2020 until 09/22/2020 End: 03-23-2021 Glucose [Mass/volume] in Serum or Plasma POCT GLUCOSE Point of Care Testing Routine Now Then Every 6hr for 7 Occurrences starting 03/21/2021 until 03/23/2021 [employer] Work Phone: Comment on above: Now Then Every 6hr f or 7 Occurrences starting 03/21/2021 until 03/23/2021 High Frequency Chest Wall Oscillation (HFCWO) High Frequency Chest Wall Oscillation (HFCWO) Respiratory Care Routine (respiratory use only) until discontinued starting 03/22/2021 [employer] Work Phone: Comment on above: (respirato ry use only) until discontinued starting 03/22/2021 End: 03-20-2021 Legionella Antigen, Urine Legionella Antigen, Urine Microbiology Routine One Time for 1 Occurrences starting 03/20/2021 until 03/20/2021 [employer] Work Phone: Comment on above: One Time for 1 Occur rences starting 03/20/2021 until 03/20/2021 Microscopic examinat ion of blood, culture Culture, Blood Microbiology STAT 03/19/2021 6:26 PM EST [employer] Work Phone: End: 03-20-2021 Microscopic observation [Identifier] in Unspecified specimen by Gram stain Gram Stain Microbiology Routine Once for 1 Occurrences starting 03/20/2021 until 03/20/2021 [employer] Work Phone: Comment on above: Once for 1 Occurrenc es starting 03/20/2021 until 03/20/2021 Oxygen therapy [[facility] Data Set] Initiate Oxygen Therapy Protocol Respiratory Care Routine Daily until discontinued starting 03/20/2021 [facility] Work Phone: Comment on above: Daily until disconti nued starting 03/20/2021 Patient Education \cps-sql1\CPS_ PtEducati on\CDC_FALL_PREVENTION. pdf, \cps-sql1\CPS_PtEducati on\quitting_smoking_[id number].pdf [facility] Work Phone: RT Communication Order RT Commun ication Order Respiratory Care STAT Daily until discontinued starting 03/18/2021 [employer] Work Phone: Comment on above: Daily until disconti nued starting 03/18/2021 RT Communication Order RT Commun ication Order Respiratory Care Routine Daily until discontinued starting 03/20/2021 [employer] Work Phone: Comment on above: Daily until disconti nued starting 03/20/2021 End: 03-20-2021 STREP PNEUMONIAE ANTIGEN STREP PNEUMONIAE ANTIGEN Microbiology Routine One Time for 1 Occurrences starting 03/20/2021 until 03/20/2021 [facility] Work Phone: Comment on above: One Time for 1 Occur rences starting 03/20/2021 until 03/20/2021 End: 03-18-2021 Urinalysis Urinalysis Lab STAT One Time for 1 Occurrences starting 03/18/2021 until 03/18/2021 [facility] Work Phone: Comment on above: One Time for 1 Occur rences starting 03/18/2021 until 03/18/2021 End: 03-18-2021 Urine Drug Screen Urine Drug Screen Lab STAT One Time for 1 Occurrences starting 03/18/2021 until 03/18/2021 [facility] Work Phone: Comment on above: One Time for 1 Occur rences starting 03/18/2021 until 03/18/2021 End: 09-22-2020 XR ABDOMEN (KUB) (SINGLE AP VIEW) XR ABDOMEN (KUB) (SINGLE AP VIEW) Imaging Routine Once for 1 Occurrences starting 09/22/2020 until 09/22/2020 [facility] Work Phone: Comment on above: Once for 1 Occurrenc es starting 09/22/2020 until 09/22/2020 Immunizations Immunization Date Immunization Notes Care Provider Jennifer betancourt 02-02-2021 influenza virus vacc ine, unspecified formulation Rashaad Smith MYSQL DATABASE ADMINISTRATOR - THERMODYNAMICS TEACHER Work Phone: [facility] 01-10-2017 pneumococcal polysaccharide vaccine, 23 valent Elizabeth Moura MD Work Phone: [facility] 01-10-2017 tetanus toxoid, redu delia diphtheria toxoid, and acellular pertussis vaccine, adsorbed Elizabeth Moura MD Work Phone: [facility] Work Phone: Payers Date Payer Category Payer Self-pay [id number] 2019 Medicaid [id number] 2019 Medicaid [id number] 2018 Private Health Insurance [id number]. [id number] 2018 Private Health Insurance [facility] [employer] xxxxxxxxx 2018-Present [phone] [address] [place] [address] xxxxxxxxx [id number]. [id number] 1957 Unknown [id number] 2.16.840.1.627036.3.579.2. 668 1957 Unknown [id number] 2.16.840.1.850769.3.579.2. 668 Private Health Insurance Unknown [id number] 2.16.840.1.442350.3.579.2. 462 Unknown [id number] 2.16.840.1.588123.3.579.2. 462 Unknown [id number] 2.16.840.1.829186.3.579.2. 462 Unknown [id number] 2.16.840.1.776398.3.579.2. 462 Unknown [id number] 2.16.840.1.559270.3.579.2. 462 Unknown [id number] 2.16.840.1.420275.3.579.2. 462 Unknown [id number] 2.16.840.1.347479.3.579.2. 462 Unknown [id number] 2.16.840.1.030957.3.579.2. 462 Unknown [id number] 2.16.840.1.074317.3.579.2. 462 Unknown [id number] 2.16.840.1.423308.3.579.2. 462 Unknown [id number] 2.16840.1.418030.3.579.2. 462 Unknown [id number] 2.16840.1.628053.3.579.2. 462 Unknown [id number] 2.16840.1.207715.3.579.2. 462 Unknown [id number] 2.16.840.1.249750.3.579.2. 462 Unknown [id number] 2.16.840.1.258371.3.579.2. 462 Unknown [id number] 2.16840.1.049304.3.579.2. 462 Unknown [id number] 2.16.840.1.778605.3.579.2. 462 Unknown [id number] 2.16.840.1.332726.3.579.2. 462 Unknown [id number] 2.16.840.1.860232.3.579.2. 462 Unknown [id number] 2.16.840.1.698483.3.579.2. 462 Unknown [id number] 2.16.840.1.102263.3.579.2. 462 Unknown [id number] 2.16.840.1.520212.3.579.2. 462 Unknown [id number] 2.16840.1.004344.3.579.2. 462 Unknown [id number] 2.16.840.1.461754.3.579.2. 462 Unknown [id number] 2.16840.1.738902.3.579.2. 462 Unknown [id number] 2.16840.1.873534.3.579.2. 462 Unknown [id number] 2.840.1.791753.3.579.2. 462 Unknown [id number] 2.840.1.026704.3.579.2. 462 Unknown [id number] 2.840.1.398498.3.579.2. 462 Unknown [id number] 2.840.1.301430.3.579.2. 462 Unknown [id number] 2.840.1.349507.3.579.2. 462 Unknown [id number] 2.840.1.468409.3.579.2. 462 Unknown [id number] 2.840.1.259206.3.579.2. 462 Unknown [id number] 2.840.1.584711.3.579.2. 462 Unknown [id number] 2.840.1.818192.3.579.2. 462 Unknown [id number] 2.840.1.880758.3.579.2. 462 Unknown [id number] 2.840.1.555326.3.579.2. 462 Unknown [id number] 2.840.1.589288.3.579.2. 462 Unknown [id number] 2.16840.1.049947.3.579.2. 462 Unknown [id number] 2.840.1.330834.3.579.2. 462 Unknown [id number] 2.16.840.1.149097.3.579.2. 462 Unknown [id number] 2.16.840.1.336636.3.579.2. 462 Unknown [id number] 2.16.840.1.348594.3.579.2. 462 Unknown [id number] 2.16840.1.590131.3.579.2. 462 Unknown [id number] 2.16840.1.787865.3.579.2. 462 Unknown [id number] 2.840.1.118000.3.579.2. 462 Unknown [id number] 2.840.1.870054.3.579.2. 462 Unknown [id number] 2.840.1.594769.3.579.2. 462 Unknown [id number] 2.840.1.074548.3.579.2. 462 Unknown [id number] 2.840.1.026587.3.579.2. 462 Unknown [id number] 2.840.1.464673.3.579.2. 462 Unknown [id number] 2.840.1.682764.3.579.2. 462 Unknown [id number] 2.840.1.283347.3.579.2. 462 Unknown [id number] 2.840.1.818139.3.579.2. 462 Unknown [id number] 2.16840.1.596820.3.579.2. 462 Unknown [id number] 2.16840.1.000493.3.579.2. 462 Unknown [id number] 2.16840.1.348540.3.579.2. 462 Unknown [id number] 2.840.1.211107.3.579.2. 462 Unknown [id number] 2.16.840.1.015385.3.579.2. 462 Social History Date Type Detail Facility Tobacco smoking status NHIS Unknown if ever smoked [facility] Work Phone: Start: 1955 Sex Assigned At Not on file [facility] Work Phone: Start: 11-05-2018 End: 06-26-2020 Tobacco smoking status NHIS Former smoker [facility] Work Phone: End: 02-06-2016 History of tobacco use Current smoker [facility] Work Phone: End: 02-06-2016 History of tobacco use Cigar Smoker [employer] Work Phone: Start: 02-05-2018 End: 06-26-2020 Tobacco use and exposure Never used [employer] Work Phone: Start: 06-26-2020 End: 05-20-2022 Alcohol intake Current drinker of alcohol (finding) [employer] Work Phone: Start: 07-08-2018 Alcohol Comment 2 times per wo rk, occasionally liquor [employer] Work Phone: Start: 05-10-2022 End: 05-20-2022 Exposure to SARS-CoV-2 (event) Not sure [employer] Work Phone: Start: 09-22-2020 End: 05-20-2022 Alcohol intake [facility] Start: 1955 Sex Assigned At Male [facility] End: 02-06-2016 History of tobacco use Cigarette Smoker [facility] Start: 05-20-2022 End: 10-02-2023 Tobacco use panel [facility] How often to you have a drink containing alcohol? Never [facility] How many standard drinks containing alcohol do you have on a typical day? Patient does not drink [facility] Start: 11-29-2021 End: 08-16-2024 Sex Male (finding) [facility] Tobacco smoking status NHIS Unknown if ever smoked [facility] Work Phone: NEGATED: Highlighted rowStart: 05-22-2019 End: 05-22-2019 Alcohol use Alcohol use [facility] Work Phone: NEGATED: Highlighted rowStart: 05-22-2019 End: 05-22-2019 Assertion Current some day smoker [facility] Work Phone: NEGATED: Highlighted rowStart: 05-22-2019 End: 05-22-2019 Details of drug misuse behavior Details of drug misuse behavior [facility] Work Phone: NEGATED: Highlighted rowStart: 05-22-2019 End: 05-22-2019 Tobacco use and exposure Tobacco use and exposure [facility] Work Phone: Clinical Notes 03-18-2021 to 05-03-2024 Telephone Encounter - Aravind Wallace - 05/03/2024 5:29 PM ESTTelephone Encounter - Aravind Wallace - 05/03/2024 5:29 PM ZACHARY Baptiste - 11/22/2023 11:30 AM EDTDischarge Instr - [facility] Note Date & Type Note Facility 05-03-2024 Telephone encounter Note Gissel is calling to let Dr. Burgos know that the medication he prescribed he not certified, she is going to fax the information to the office. [phone] [facility] 05-03-2024 Miscellaneous Notes Gissel is calling to let Dr. Burgos know that the medication he prescribed he not certified, she is going to fax the information to the office. [phone] documented in this encounter [facility] 11-22-2023 History of Presen t illness Narrative Images from the original note were not included. Speech-Language Pathology SPEECH LANGUAGE PATHOLOGY [facility] Modified Barium Swallow Study [...] despite effort. 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 Frequency: Per treating [employer] Barriers: large osteophytes, bridging with anterior projection [...] Prior MBSS?: No, unable to locate in [facility] Current Diet: Puree diet with ?liquid (no information from [facility]) Textures tested: - thin liquid, (cup edge) - mildly thick liquid, (cup edge) - puree, (teaspoon) Patient position: lateral Past Medical History: Past Medical History: Diagnosis Date TREVER (acute kidney injury) ([facility]/HCC) ([facility]) Alcohol abuse 07/08/2018 Anxiety C1 spinal cord injury ([facility]) ([facility]) Depression Fall 06/2018 Schizophrenia ([facility]) Past Surgical History: Past Surgical History: Procedure Laterality Date CERVICAL FUSION 07/09/2014 C2-6 cervical fusion GASTROSTOMY TUBE PLACEMENT 07/13/2018 TRACHEOSTOMY 07/13/2018 Admission Diagnosis: Patient Active Problem List Diagnosis Date Noted Respiratory syncytial virus (RSV) 03/22/2021 Hypoxia 03/19/2021 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[facility]) ([facility]) 08/16/2018 Chronic latent schizophrenia ([facility]) 08/15/2018 Prolonged Q-T interval on ECG 08/15/2018 Abdominal wall abscess 08/15/2018 Central cord syndrome ([facility]) ([facility]) 08/15/2018 Respiratory failure after trauma ([facility]) 08/15/2018 Pressure ulcer of sacral region, stage 2 ([facility]) 08/09/2018 Urinary retention 07/28/2018 Acute respiratory failure with hypoxia ([facility]) 07/26/2018 Mild bibasilar atelectasis 07/26/2018 Hospital-acquired pneumonia 07/26/2018 Bilateral pleural effusion 07/26/2018 Ileus ([facility]) ([facility]) 07/23/2018 TREVER (acute kidney injury) ([facility]) 07/23/2018 Hypokalemia 07/21/2018 Vertebral artery occlusion, bilateral 07/11/2018 Vitamin D insufficiency 07/10/2018 Alcohol abuse 07/08/2018 Closed wedge compression fracture of first thoracic vertebra ([facility]) 07/08/2018 Traumatic nondisp spondylolisthesis of C3 vertebra with closed fx, initial encounter ([facility]) 07/08/2018 Closed fracture dislocation of cervical spine ([facility]) 07/08/2018 Pain: Pt denies any current pain. Reason for current admission: Pt with h/o of PEG and trach from 2019. Pt is currently decannulated. 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 Noted very large connective [...] able to eat by mouth. 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 Per EMS nurse is new and does not know patient very well but he is A&O x 2 at baseline. Per EMS the nurse states it was 20 mins ago. Contacted nurse that was caring for him and she states that was the first time she has seen him for that day, mini shifter did not report any problems. EMS [...] schizophrenia. BS 131. documented in this encounter [facility] 10-02-2023 Emergency department Note This RN gave report to Marnie at [facility] at this time Mami Lantigua RN 10/02/23 1358 [facility] 10-02-2023 Emergency department Note This RN went to evaluate patient, was on 2L o2 and does not wear at baseline, plan is dc, this RN turned o2 off to trial patient, spo2 monitor on Mami Lantigua RN 10/02/23 1325 [facility] 10-02-2023 Emergency department Note Pt to ct via cart Eloisa Alfaro RN 10/02/23 1043 [facility] 10-02-2023 Emergency department Triage note Pt was brought in via [facility] from [facility] for Left sided facial droop. Per EMS nurse is new and does not know patient very well but he is A&O x 2 at baseline. Per EMS the nurse states it was 20 mins ago. Contacted nurse that was caring for him and she states that was the first time she has seen him for that day, mini shifter did not report any problems. EMS [...] the facility. Hx of schizophrenia. BS 131. [facility] 10-02-2023 Physician Emergency department Note Emergency [...] are mis-transcribed.) Fei Farooq MD Acute Care [facility] Fei Farooq MD 10/02/23 1129 [facility] Work Phone: 05-20-2022 Emergency department Note Report called to assisted. Copy of Xray report sent with discharge packet Gary Ghosh RN 05/20/222007 [facility] 05-20-2022 Emergency department Note Report called to assisted. Copy of Xray report sent with discharge packet Gary Ghosh RN 05/20/222007 Emergency Department Encounter [facility] ED Patient: Kathya Hooper : 1955 Date of Evaluation: 05/20/2022 ED Supervising Physician: Abelardo Rios DO I independently examined and evaluated Kathya Hooper. This will serve as my Supervisory note as the psychiatric clinician of record and shared attestation. I [...] to contact the dictating provider for clarification.) Abelarod Rios DO Acute Care [facility] Abelardo Rios DO 05/20/222014 documented in this encounter [facility] 05-20-2022 Miscellaneous Notes Associated Order(s): Feeding Tube Replacement Procedure Feeding Tube Replacement Performed by: Dejah Hazel DO Authorized by: Abelardo Rios DO Consent: Consent obtained: Verbal Consent given by: Patient Warren protocol: Patient identity confirmed: Verbally with patient [...] DO Resident 05/20/221931 documented in this encounter [facility] 05-20-2022 Note Associated Order(s): Feeding Tube Replacement Procedure Feeding Tube Replacement Performed by: Dejah Hazel DO Authorized by: Abelardo Rios DO Consent: Consent obtained: Verbal Consent given by: Patient Warren protocol: Patient identity confirmed: Verbally with patient [...] immediate complications Dejah Hazel DO Resident 05/20/221931 [facility] [employer] Work Phone: 05-20-2022 Note Associated Order(s): Feeding Tube Replacement Procedure Feeding Tube Replacement Performed by: Dejah Hazel DO Authorized by: Abelardo Rios DO Consent: Consent obtained: Verbal Consent given by: Patient Warren protocol: Patient identity confirmed: Verbally with patient [...] immediate complications Dejah Hazel DO Resident 05/20/221931 [email or web address] Phone: 05-20-2022 Physician Emergency department Note Emergency Department Encounter [facility] ED Patient: Kathya Hooper : 1955 Date of Evaluation: 05/20/2022 ED Supervising Physician: Abelardo Rios DO I independently examined and evaluated Kathya Hooper. This will serve as my Supervisory note as the psychiatric clinician of record and shared attestation. I [...] for clarification.) Abelardo Rios DO Acute Care [facility] Abelardo Rios DO 05/20/222014 [employer] Phone: 03-24-2021 Note Hospitalist Discharg e Summary [...] Pneumonia. Treated with antibiotics. He resides in [facility]. He was stablized and discharged Diet [...] Result Date: 03/18/2021 [id number] Tomography ACCESSION EXAM DATE/TIME PROCEDURE ORDERING PROVIDER [id number] 03/18/2021 16:26 EST CTA Head/Neck w/ + w/o [id number] alyson ARCHIBALD CPT code 55391 27767 Q9967 Reason For Exam (CTA Head/Neck w/ [...] Pneumonia. Treated with antibiotics. He resides in [facility]. He was stablized and discharged Diet NPO ADULT TUBE FEEDING; PEG; 2.0 Calorie; Cyclic; 75; 6:00 PM; 9:00 AM; 200; Q 4 hours Vitals: BP (!) 85/55 Pulse 85 Temp 97.7 F (36.5 C) (Temporal) Resp 18 Ht 6' 2.02 (1.88 m) Wt 185 lb 14.4 oz (84.3 kg) Comment: per Ntaaly RN (bed scale measurement) on 03/20/2021 SpO2 [...] Tomography ACCESSION EXAM DATE/TIME PROCEDURE ORDERING PROVIDER [id number] 03/18/2021 16:26 EST CTA Head/Neck w/ + w/o [id number] alyson ARCHIBALD CPT code 01299 55269 Q9967 Reason For Exam (CTA Head/Neck w/ [...] Result Date: 03/18/2021 [id number] Computed Tomography ACCESSION EXAM DATE/TIME PROCEDURE ORDERING PROVIDER [id number] 03/18/2021 16:27 EST CTA Chest w/ + w/o 288295 Alyson ARCHIBALD CPT code 15977 Q9967 Reason For Exam (CTA Chest w/ + w/o Contrast) pulmonary embolus Report CTA chest with and without contrast History: chest pain Protocol: 1 mm images after IV contrast, 3D rendering performed by wy on a separate workstation No evidence of [...] Radiology ACCESSION EXAM DATE/TIME PROCEDURE ORDERING PROVIDER [id number] 03/19/2021 17:10 EST CR Chest Portable [id number] -NESBRADY WASHBURN CPT code 00106 Reason For Exam (CR Chest Portable) hypoxia [...] Radiology ACCESSION EXAM DATE/TIME PROCEDURE ORDERING PROVIDER [id number] 03/18/2021 15:30 EST CR Chest Portable 311509 -BOO CASTRO CPT code 75876 Reason For Exam (CR Chest Portable) sob, [...] Contact Information Primary Emergency Contact: Jason Hooper [facility] Relation: Parent Past Surgical History: Past Surgical History: Procedure Laterality Date CERVICAL FUSION 07/09/2014 C2-6 cervical fusion GASTROSTOMY TUBE PLACEMENT 07/13/2018 TRACHEOSTOMY 07/13/2018 Immunization History: Immunization History Administered Date(s) Administered Pneumococcal Polysaccharide ([id number]) 01/10/2017 Tdap (Boostrix, Adacel) 01/10/2017 Active Problems: Patient Active Problem List Diagnosis Code Closed fracture dislocation of cervical spine ([facility]) S12.9XXA Traumatic nondisp spondylolisthesis of C3 vertebra with closed fx, initial encounter ([facility]) S12.231A Closed wedge compression fracture of first thoracic vertebra ([facility]) S22.010A Central cord syndrome ([facility]) S14.129A Chronic latent schizophrenia ([facility]) F21 Alcohol abuse F10.10 Respiratory failure after trauma ([facility]) J96.90 Vitamin D insufficiency E55.9 Vertebral artery occlusion, 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 Hypokalemia E87.6 Ileus ([facility]) K56.7 TREVER (acute kidney injury) ([facility]) N17.9 Acute respiratory failure with hypoxia ([facility]) J96.01 Hospital-acquired pneumonia J18.9, Y95 Bilateral pleural effusion J90 Mild bibasilar atelectasis J98.11 Urinary retention R33.9 Prolonged Q-T interval on ECG R94.31 Pressure ulcer of sacral region, stage 2 ([facility]) L89.152 Abdominal wall abscess L02.211 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[facility]) K65.4 Hypoxia R09.02 Respiratory syncytial virus (RSV) [...] MENTAL STATUS:} IV Access: { CHRIS IV ACCESS:790446080} Nursing Mobility/ADLs: Walking {CHP DME ADLs:187608102} Transfer {CHP DME ADLs:622174261} Bathing {CHP DME ADLs:476616539} Dressing {CHP DME ADLs:684200614} Toileting {CHP DME ADLs:748877276} Feeding {CHP DME ADLs:989213410} Repair Service Dispatcher {CHP DME ADLs:652765313} Med Delivery { CHRIS MED Delivery:691221361} Wound Care Documentation and Therapy: Negative Pressure Wound Therapy Abdomen Left (Active) Number of days: 947 Wound Sacrum Mid (Active) Number of days: Elimination: Continence: Bowel: {YES / NO:} Bladder: {YES / NO:} Urinary Catheter: {Urinary Catheter:888661839} Colostomy/Ileostomy/Ileal Conduit: {YES / NO:} Date of Last BM: No intake or output data in the 24 hours ending 03/24/21 1013 I/O last 3 completed shifts: In: 660 [NG/GT:660] Out: - Safety Concerns: { HCRIS Safety Concerns:216924160} Impairments/Disabilities: { CHRIS Impairments/Disabilities:34612922 3} Nutrition Therapy: Current Nutrition Therapy: { CHRIS Diet List:480911672} Routes of Feeding: {[facility] DME Other Feedings:195887608} Liquids: {[facility] liquid thickness:92975} Daily Fluid Restriction: {CHP DME Yes amt example:941493775} Last Modified Barium Swallow with Video (Video Swallowing Test): {Done Not Done Date:} Treatments at the Time of Hospital Discharge: Respiratory Treatments: Oxygen Therapy: {Therapy; copd oxygen:67950} Ventilator: { CC Vent List:522157287} Rehab Therapies: {THERAPEUTIC INTERVENTION:7639750780} Weight Bearing Status/Restrictions: { CC Weight Bearin} Other Medical Equipment (for information only, NOT a DME order): {EQUIPMENT:253124897} Other Treatments: Patient's personal belongings (please select all that are sent with patient): {CHP DME Belongings:242310010} RN SIGNATURE: {Esignature:581024980} CASE MANAGEMENT/SOCIAL WORK SECTION Inpatient Status Date: Readmission Risk Assessment Score: Readmission Risk Risk of Unplanned Readmission: 25 Discharging to Facility/ Agency Name: [facility] Address: [facility] Rui Barboza, [facility] [address] Dialysis Facility (if applicable) Name: Address: Dialysis Schedule: Phone: Fax: Hazardous Waste Technician/Fried Cake Maker signature: PHYSICIAN SECTION Prognosis: Good Condition at Discharge: Stable Rehab Potential (if transferring to Rehab): Good Recommended Labs or Other Treatments After Discharge: Physician Certification: I certify the above information and transfer of Kathya Hooper is necessary for the continuing treatment of the diagnosis listed and that he requires Shelter Facility for greater 30 days. Update Admission [...] loss Fluid Accumulation: No significant fluid accumulation Wet Process Technician Strength: Not Performed Estimated Daily Nutrient Needs: Energy (kcal): 5775-2388 (25-30 kcal/kg IBW); Weight Used for Energy Requirements: Norton (86.2 kg) Protein (g): 86-103 (1.0-1.2 g protein/kg IBW); Weight Used for Protein Requirements: Norton (86.2 kg) Fluid (ml/day): per . At [...] on 03/02/21, October weight= 185.5# on 01/29/21) Norton Body Weight: 190 lbs; % Norton Body Weight 97.8 % BMI: 24 Adjusted [...] Skin, Weight Discharge Planning: Enteral Nutrition Contact: *[phone] Images from the original note were not included. Hospitalist Progress Note 03/23/2021 9:27 AM Subjective: Admit Date: 03/19/2021 PCP: No primary care provider on file. Room#: 465/5530 Patient seen and examined. Laying in bed. [...] lb 14.4 oz (84.3 kg) Comment: per Natayl RN (bed scale measurement) on 03/20/2021 SpO2 [...] from the original note were not included. [facility], Pulmonary Critical Care and Sleep Medicine [address] [place] [address] Patient - Kathya Hooper, Age - 66 y.o. - 1955 Room Number - [facility]/4656 Consulting - Rafa Michel MD Primary Care Physician - No primary care provider on file. [facility] # - [id number] Date of Admission - 03/19/2021 3:52 PM [...] bed. Pt thought there was a helicopter dispatcher in the corner of his room. When pt got his meds he calmed down. Pt now watching tv. Call light within reach. Bed alarm on. Images from the original note were not included. [facility], Pulmonary Critical Care and Sleep Medicine [address] [place] [id number] Patient - Kathya Hooper, Age - [...] 185 lb 14.4 oz (84.3 kg) Comment: earleen Ingram RN (bed scale measurement) on 03/20/2021 [...] No primary care provider on file. Room#: 852/6501 Patient seen and examined. Laying in bed. [...] PLT 163 136* 158 BMP: Recent Labs 03/19/21170903/20/213 03/21/216 NA 137 137 136 K 4.1 3.9 [...] 72 hours. CARDIAC ENZYMES: Recent Labs 03/19/21170903/20/21 002 TROPONINI 0.017 0.037* Procalcitonin: Lab Results Component [...] y.o. - 1955 Room Number - 465/4651 [facility] - [address] Date of Admission - 03/19/2021 3:52 PM [...] Date 03/21/21 0000 - 03/21/21 2359 Shift 3442-4223 4297-6526 6822-4348 24 Hour Total INTAKE NG/GT(mL/kg) 542(6.4) 542(6.4) [...] included. Hospitalist Progress Note 03/21/2021 9:41 AM [phone]: Please page me for patient care issues. [phone]: Please page [facility] night Hospitalist for any [...] Trach PEG 07/13/2018. Presented from SNF to [facility] ED with worsening SOB. Evaluated in [...] loss Fluid Accumulation: No significant fluid accumulation Wet Process Technician Strength: Not Performed Estimated Daily Nutrient Needs: Energy (kcal): 6857-3173 (25-30 kcal/kg IBW); Weight Used for Energy Requirements: Norton (86.2 kg) Protein (g): 86-103 (1.0-1.2 g protein/kg IBW); Weight Used for Protein Requirements: Norton (86.2 kg) Fluid (ml/day): per MD. At facility receivin mL free water daily from EN and flushes; Method Used for Fluid Requirements: Other (Comment) Nutrition Related Findings: Massimo score= 15. No skin breakdown or edema noted. S/p Trach/PEG, per SPRING SALVAGE WORKER note, does not take any food, drink [...] on 03/02/21, October weight= 185.5# on 01/29/21) Norton Body Weight: 190 lbs; % Norton Body Weight 97.8 % BMI: 23.9 BMI [...] states that she is the only family [phone] Images from the original note were not included. Hospitalist Progress Note 03/20/2021 9:58 AM [phone]: Please page me for patient care issues. [phone]: Please page [facility] night Hospitalist for any issues. Subjective: Admit Date: 03/19/2021 PCP: No primary care provider on file. Room#: 465/465 Interval History: He continues to have cough [...] this encounter [facility] Work Phone: 03-18-2021 Hospital Discharg e Boo Fu MD - 03/18/2021 Mr. Hooper was seen at the [facility] emergency department for low oxygen levels. Patient [...] cannot be sent through Care Everywhere.Viral Infections (Thai)documented in this encounter [facility] Work Phone: Evaluation note Diagnosis PEG tube malfunction (HCC)- Primary Mechanical complication of gastrostomy documented in this encounter [facility] Work Phone: Evaluation note* Diagnosis Feeding tube dysfunction, initial encounter- Primary documented in this encounter [facility] Work Phone: Evaluation note* Diagnosis Respiratory syncytial virus (RSV)- Primary Hypoxia Hypoxemia [facility]: [facility]* Diagnosis Respiratory syncytial virus (RSV)- Primary Hypoxia Hypoxemia documented [facility] Work Phone: Evaluation note* Diagnosis PEG tube malfunction (HCC)- Primary Mechanical complication of gastrostomy documented in [facility] encounter [facility] Work Phone: Evaluation note* Diagnosis Contusion of right hip, initial encounter- Primary documented [facility] Work Phone: Evaluation noteNo assessment information available [facility] Work Phone: Evaluation note* Diagnosis Dyspnea, unspecified type- Primary documented in this encounter [facility]* Diagnosis Dysphagia, oropharyngeal phase Feeding difficulties Feeding difficulties and mismanagement documented in this encounter [facility]* Diagnosis Dysphagia, oropharyngeal phase- Primary Feeding difficulties Feeding difficulties and mismanagement Dysphagia, oropharyngeal phase Feeding difficulties Feeding difficulties and mismanagement documented in this encounter [facility]* Diagnosis Dislodged gastrostomy tube- Primary documented in this encounter [facility]* Diagnosis Chronic cough Cough documented in this encounter [facility] note* Diagnosis Chronic cough- Primary Cough Chronic cough Cough [facility]* Attachments The following attachments cannot be sent through Care Everywhere. * PEG (Percutaneous Endoscopic Gastrostomy): Post-op (Thai) [facility]: Hospital Discharge instructions* Attachments The following attachments cannot be sent through Care Everywhere. * Feeding Tube: General Info (Thai) [facility] Work Phone: Hospital Discharge instructions* Instructions* Mary Cochran PA-C - 05/15/2021 Please return to the ED if you have any new or worsening symptoms. [facility] Work Phone: Hospital Discharge instructions* Attachments The following attachments cannot be sent through Care Everywhere. * Hip Pain (Thai) * Contusion (Thai) [facility] Discharge [facility]* Attachments The following attachments cannot be sent through Care Everywhere. * Shortness of Breath (Dyspnea) Discharge Instructions (Thai) [facility]* Attachments The following attachments cannot be sent through Care Everywhere. * How to Care for Your Gastrostomy Tube (Thai) [facility] (narrative)No reason for referral information availableWBrecksville [facility] Work Phone: Reason for visit Narrative* Imaging (Routine) - Closed Specialty Diagnoses / Procedures Referred By Contlang t Referred To Contact Radiology Diagnoses Chronic cough Procedures CT chest wo IV contrast Rashaad Smith APRN - THERMODYNAMICS TEACHER [id number] [address] Phone: tel: fax: Referral ID Status Reason Start Date Expiration Date Visits Re quested Visits Authorized [id number] Closed 06/12/2024 06/12/2025 1 1 [facility] Summary Purpose Family History No Family History Records FoundNo Family History Records FoundThere may be information available, but it has not been provided by the sender.No Family History Records FoundNo Family History Records FoundNo Family History Records FoundNo Family History Records Found Advance Directives No Advanced Directives Records FoundDocuments on File Type Date Recorded Patient Managing Editor Expl anation ACP-Advance Directive ACP-Advance Directive 08/07/2018 1:53 PM ACP-Power of Film Waxer Latest Code Status on File Code Status Date Activated Date Inactivated Comments Full Code 08/15/2018 8:27 PM 08/22/2018 4:31 PM Full Code 08/15/2018 8:12 PM 08/15/2018 8:27 PM Full Code 07/08/2018 8:28 PM 08/01/2018 2:39 PM Documents on File Type Date Recorded Patient Managing Editor Expl anation ACP-Advance Directive ACP-Power of Film Waxer ACP-Advance Directive 08/07/2018 1:53 PM Latest Code Status on File Code Status Date Activated Date Inactivated Comments Full Code 03/20/2021 12:17 AM Full Code 08/15/2018 8:27 PM 08/22/2018 4:31 PM Documents on File Type Date Recorded Patient Managing Editor Expl anation ACP-Advance Directive ACP-Power of Film Waxer ACP-Advance Directive 03/26/2021 9:48 AM ACP-Advance Directive 08/07/2018 1:53 PM Latest Code Status on File Code Status Date Activated Date Inactivated Comments Full Code 03/20/2021 12:17 AM 03/24/2021 3:23 PM Documents on File Type Date Recorded Patient Managing Editor Expl anation Advance Directives and Livin g Will Advance Directives and Livin g Will 08/07/2018 1:53 PM Power of Film Waxer Documents on File Type Date Recorded Patient Managing Editor Expl anation Advance Directives and Livin g Will 05/23/2022 10:48 AM Advance Directives and Livin g Will 03/19/2021 Documents on File Type Date Recorded Patient Managing Editor Expl anation Advance Directives and Living Will 03/19/2021 Documents on File Type Date Recorded Patient Managing Editor Expl 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 * Feeding Tube: General Info (Thai) documented in this encounter Assessments Diagnosis PEG [...] Complaint and Reason for Visit Chief Complaint JAIL LABWORK JAIL LAB WORK JAIL LABWORK JAIL LABWORK JAIL LABWORK JAIL LAB WORK JAIL LABWORK JAIL LABWORK JAIL LABWORK JAIL LABWORK JAIL LABWORK JAIL LAB WORK JAIL LABWORK NURING HOME LABWORK JAIL LABWORK JAIL LAB WORK JAIL LABWORK Chief Complaint JAIL LABWORK JAIL LABWORK JAIL LABWORK JAIL LAB WORK JAIL LABWORK NURING HOME LABWORK JAIL LABWORK JAIL LAB WORK JAIL LABWORK JAIL LABWORK JAIL LAB WORK JAIL LAB WORK JAIL BLOOD WORK JAIL LABWORK JAIL LAB WORK Chief Complaint JAIL LABWORK JAIL LABWORK JAIL LAB WORK JAIL LABWORK NURING HOME LABWORK JAIL LABWORK JAIL LAB WORK JAIL LABWORK JAIL LABWORK JAIL LAB WORK JAIL LAB WORK JAIL BLOOD WORK JAIL LABWORK LABWORK LABWORK JAIL LAB WORK Chief Complaint JAIL LABWORK JAIL LAB WORK JAIL LABWORK NURING HOME LABWORK JAIL LABWORK JAIL LAB WORK JAIL LABWORK JAIL LABWORK JAIL LAB WORK JAIL LAB WORK JAIL BLOOD WORK JAIL LABWORK LABWORK LABWORK JAIL LAB WORK Chief Complaint JAIL LAB WOR K JAIL LABWORK NURING HOME LABWORK JAIL LABWORK JAIL LAB WORK JAIL LABWORK JAIL LABWORK JAIL LAB WORK JAIL LAB WORK JAIL BLOOD WORK JAIL LABWORK LABWORK LABWORK JAIL LAB WORK Chief Complaint JAIL LAB WOR K JAIL LABWORK NURING HOME LABWORK JAIL LABWORK JAIL LAB WORK JAIL LABWORK JAIL LABWORK JAIL LAB WORK JAIL LAB WORK JAIL BLOOD WORK JAIL LABWORK LABWORK LABWORK JAIL LAB WORK LABWORK JAIL LABWORK Chief Complaint JAIL LABWORK NURING HOME LABWORK JAIL LABWORK JAIL LAB WORK JAIL LABWORK JAIL LABWORK JAIL LAB WORK JAIL LAB WORK JAIL BLOOD WORK JAIL LABWORK LABWORK LABWORK JAIL LAB WORK LABWORK JAIL LABWORK JAIL LAB WORK Chief Complaint JAIL BLOOD W ORK JAIL LABWORK JAIL LABWORK LABWORK LABWORK JAIL LAB WORK LABWORK JAIL LABWORK JAIL LAB WORK LABWORK JAIL LAB WORK JAIL LAB WORK LABWORK JAIL LAB WORK Chief Complaint JAIL BLOOD W ORK JAIL LABWORK JAIL LABWORK LABWORK LABWORK JAIL LAB WORK LABWORK JAIL LABWORK JAIL LAB WORK LABWORK JAIL LAB WORK JAIL LAB WORK LABWORK JAIL LAB WORK LABWORK Chief Complaint LABWORK LABWORK JAIL LAB WORK LABWORK JAIL LABWORK JAIL LAB WORK LABWORK JAIL LAB WORK JAIL LAB WORK LABWORK JAIL LAB WORK LABWORK JAIL LAB WORK Chief Complaint LABWORK JAIL LAB WORK LABWORK JAIL LABWORK JAIL LAB WORK LABWORK JAIL LAB WORK JAIL LAB WORK LABWORK JAIL LAB WORK LABWORK JAIL LAB WORK JAIL LABWORK Chief Complaint LABWORK JAIL LABWORK JAIL LAB WORK LABWORK JAIL LAB WORK JAIL LAB WORK LABWORK JAIL LAB WORK LABWORK JAIL LAB WORK JAIL LABWORK JAIL LABWORK LABWORK JAIL LAB WORK Chief Complaint JAIL LAB WOR K LABWORK JAIL LAB WORK JAIL LAB WORK LABWORK JAIL LAB WORK LABWORK JAIL LAB WORK JAIL LABWORK JAIL LABWORK LABWORK JAIL LAB WORK JAIL LAB WORK Chief Complaint JAIL LAB WOR K JAIL LAB WORK LABWORK JAIL LAB WORK LABWORK JAIL LAB WORK JAIL LABWORK JAIL LABWORK LABWORK JAIL LAB WORK JAIL LAB WORK LABWORK JAIL LAB WORK Chief Complaint JAIL LAB WOR K LABWORK JAIL LAB WORK LABWORK JAIL LAB WORK JAIL LABWORK JAIL LABWORK LABWORK JAIL LAB WORK JAIL LAB WORK LABWORK JAIL LAB WORK JAIL LAB WORK Chief Complaint JAIL LAB WOR K LABWORK JAIL LAB WORK JAIL LABWORK JAIL LABWORK LABWORK JAIL LAB WORK JAIL LAB WORK LABWORK JAIL LAB WORK LABWORK JAIL LAB WORK JAIL LAB WORK JAIL LABWORK JAIL LABWORK Chief Complaint LABWORK JAIL LAB WORK JAIL LABWORK JAIL LABWORK LABWORK JAIL LAB WORK JAIL LAB WORK LABWORK JAIL LAB WORK LABWORK JAIL LAB WORK JAIL LAB WORK JAIL LABWORK LABWORK JAIL LABWORK Chief Complaint LABWORK JAIL LAB WORK JAIL LAB WORK LABWORK JAIL LAB WORK LABWORK JAIL LAB WORK JAIL LAB WORK JAIL LABWORK LABWORK JAIL LABWORK JAIL LAB WORK Chief Complaint JAIL LAB WOR K LABWORK JAIL LAB WORK JAIL LAB WORK JAIL LABWORK LABWORK JAIL LABWORK JAIL LAB WORK LABWORK LABWORK LABWORK LABWORK JAIL LABWORK JAIL LAB WORK LABWORK LABWORK Chief Complaint LABWORK JAIL LAB WORK JAIL LAB WORK JAIL LABWORK LABWORK JAIL LABWORK JAIL LAB WORK LABWORK LABWORK LABWORK LABWORK JAIL LABWORK JAIL LAB WORK LABWORK LABWORK JAIL LABWORK Chief Complaint JAIL LAB WOR K JAIL LAB WORK JAIL LABWORK LABWORK JAIL LABWORK JAIL LAB WORK LABWORK LABWORK LABWORK LABWORK JAIL LABWORK JAIL LAB WORK LABWORK LABWORK JAIL LABWORK JAIL LAB WORK Chief Complaint JAIL LABWORK LABWORK JAIL LABWORK JAIL LAB WORK LABWORK LABWORK LABWORK LABWORK JAIL LABWORK JAIL LAB WORK LABWORK LABWORK JAIL LABWORK JAIL LAB WORK JAIL LABWORK JAIL LAB WORK Chief Complaint LABWORK JAIL LABWORK JAIL LAB WORK LABWORK LABWORK LABWORK LABWORK JAIL LABWORK JAIL LAB WORK LABWORK LABWORK JAIL LABWORK JAIL LAB WORK JAIL LABWORK LABWORK JAIL LAB WORK Chief Complaint LABWORK LABWORK LABWORK LABWORK JAIL LABWORK JAIL LAB WORK LABWORK LABWORK JAIL LABWORK JAIL LAB WORK JAIL LABWORK LABWORK JAIL LAB WORK LABWORK JAIL LABWORK Chief Complaint LABWORK JAIL LABWORK JAIL LAB WORK LABWORK LABWORK JAIL LABWORK JAIL LAB WORK JAIL LABWORK LABWORK JAIL LAB WORK LABWORK JAIL LABWORK LABWORK LABWORK Chief Complaint JAIL LABWORK JAIL LAB WORK LABWORK LABWORK JAIL LABWORK JAIL LAB WORK JAIL LABWORK LABWORK JAIL LAB WORK LABWORK JAIL LABWORK LABWORK LABWORK LABWORK JAIL LAB WORK JAIL LAB WORK JAIL LABWORK Chief Complaint JAIL LABWORK JAIL LAB WORK LABWORK LABWORK JAIL LABWORK JAIL LAB WORK JAIL LABWORK LABWORK JAIL LAB WORK LABWORK JAIL LABWORK LABWORK LABWORK LABWORK JAIL LAB WORK JAIL LAB WORK JAIL LABWORK JAIL LABWORK Chief Complaint LABWORK LABWORK JAIL LABWORK JAIL LAB WORK JAIL LABWORK LABWORK JAIL LAB WORK LABWORK JAIL LABWORK LABWORK LABWORK LABWORK JAIL LAB WORK JAIL LAB WORK JAIL LABWORK JAIL LABWORK JAIL LAB WORK LABWORK Chief Complaint JAIL LABWORK JAIL LAB WORK JAIL LABWORK LABWORK JAIL LAB WORK LABWORK JAIL LABWORK LABWORK LABWORK LABWORK JAIL LAB WORK JAIL LAB WORK JAIL LABWORK JAIL LABWORK JAIL LAB WORK LABWORK JAIL LABWORK Chief Complaint JAIL LABWORK LABWORK JAIL LAB WORK LABWORK JAIL LABWORK LABWORK LABWORK LABWORK JAIL LAB WORK JAIL LAB WORK JAIL LABWORK JAIL LABWORK JAIL LAB WORK LABWORK JAIL LABWORK JAIL LAB WORK Chief Complaint LABWORK JAIL LABWORK LABWORK LABWORK LABWORK JAIL LAB WORK JAIL LAB WORK JAIL LABWORK JAIL LABWORK JAIL LAB WORK LABWORK JAIL LABWORK JAIL LAB WORK JAIL LABWORK JAIL LAB WORK Chief Complaint LABWORK JAIL LABWORK JAIL LAB WORK JAIL LABWORK JAIL LAB WORK JAIL LABWORK JAIL LABWORK JAIL LABWORK JAIL LABWORK JAIL LAB WORK LABWORK LABWORK JAIL LABWORK Chief Complaint JAIL LABWORK JAIL LAB WORK JAIL LABWORK JAIL LABWORK JAIL LABWORK JAIL LABWORK JAIL LAB WORK LABWORK LABWORK JAIL LABWORK LABWORK JAIL LAB WORK JAIL LAB WORK Chief Complaint JAIL LABWORK JAIL LABWORK JAIL LABWORK JAIL LABWORK JAIL LAB WORK LABWORK LABWORK JAIL LABWORK LABWORK JAIL LAB WORK JAIL LAB WORK JAIL LABWORK JAIL LABWORK JAIL LAB WORK JAIL LAB WORK Chief Complaint JAIL LABWORK JAIL LABWORK JAIL LABWORK JAIL LAB WORK LABWORK LABWORK JAIL LABWORK LABWORK JAIL LAB WORK JAIL LAB WORK JAIL LABWORK JAIL LABWORK JAIL LAB WORK JAIL LAB WORK Chief Complaint JAIL LABWORK JAIL LABWORK JAIL LABWORK JAIL LAB WORK LABWORK LABWORK JAIL LABWORK LABWORK JAIL LAB WORK JAIL LAB WORK JAIL LABWORK JAIL LABWORK JAIL LAB WORK JAIL LAB WORK JAIL LABWORK LABWORK Chief Complaint JAIL LAB WOR K LABWORK LABWORK JAIL LABWORK LABWORK JAIL LAB WORK JAIL LAB WORK JAIL LABWORK JAIL LABWORK JAIL LAB WORK JAIL LAB WORK JAIL LABWORK LABWORK JAIL LAB WORK LABWORK Chief Complaint JAIL LAB WOR K LABWORK LABWORK JAIL LABWORK LABWORK JAIL LAB WORK JAIL LAB WORK JAIL LABWORK JAIL LABWORK JAIL LAB WORK JAIL LAB WORK JAIL LABWORK LABWORK JAIL LAB WORK LABWORK JAIL LABWORK JAIL LAB WORK Chief Complaint LABWORK LABWORK JAIL LABWORK LABWORK JAIL LAB WORK JAIL LAB WORK JAIL LABWORK JAIL LABWORK JAIL LAB WORK JAIL LAB WORK JAIL LABWORK LABWORK JAIL LAB WORK LABWORK JAIL LABWORK JAIL LAB WORK LABWORK\ Chief Complaint LABWORK JAIL LABWORK LABWORK JAIL LAB WORK JAIL LAB WORK JAIL LABWORK JAIL LABWORK JAIL LAB WORK JAIL LAB WORK JAIL LABWORK LABWORK JAIL LAB WORK LABWORK JAIL LABWORK JAIL LAB WORK LABWORK\ LABWORK Chief Complaint JAIL LAB WOR K JAIL LAB WORK JAIL LABWORK JAIL LABWORK JAIL LAB WORK JAIL LAB WORK JAIL LABWORK LABWORK JAIL LAB WORK LABWORK JAIL LABWORK JAIL LAB WORK LABWORK\ LABWORK JAIL LAB WORK LABWORK Chief Complaint JAIL LAB WOR K JAIL LABWORK JAIL LABWORK JAIL LAB WORK JAIL LAB WORK JAIL LABWORK LABWORK JAIL LAB WORK LABWORK JAIL LABWORK JAIL LAB WORK LABWORK\ LABWORK JAIL LAB WORK LABWORK LABWORK Chief Complaint JAIL LABWORK JAIL LABWORK JAIL LAB WORK JAIL LAB WORK JAIL LABWORK LABWORK JAIL LAB WORK LABWORK JAIL LABWORK JAIL LAB WORK LABWORK\ LABWORK JAIL LAB WORK LABWORK JAIL LABWORK LABWORK Chief Complaint JAIL LAB WOR K JAIL LABWORK LABWORK JAIL LAB WORK LABWORK JAIL LABWORK JAIL LAB WORK LABWORK\ LABWORK JAIL LAB WORK LABWORK JAIL LABWORK LABWORK JAIL LABWORK JAIL LAB WORK LABWORK JAIL LAB WORK Chief Complaint JAIL LABWORK LABWORK JAIL LAB WORK LABWORK JAIL LABWORK JAIL LAB WORK LABWORK\ LABWORK JAIL LAB WORK LABWORK JAIL LABWORK LABWORK JAIL LABWORK JAIL LAB WORK LABWORK JAIL LAB WORK LABWORK Chief Complaint JAIL LAB WOR K LABWORK JAIL LABWORK JAIL LAB WORK LABWORK\ LABWORK JAIL LAB WORK LABWORK JAIL LABWORK LABWORK JAIL LABWORK JAIL LAB WORK LABWORK JAIL LAB WORK LABWORK LABWORK Chief Complaint JAIL LAB WOR K LABWORK\ LABWORK JAIL LAB WORK LABWORK JAIL LABWORK LABWORK JAIL LABWORK JAIL LAB WORK LABWORK JAIL LAB WORK LABWORK LABWORK LABWORK LABWORK LABWORK Chief Complaint LABWORK\ LABWORK JAIL LAB WORK LABWORK JAIL LABWORK LABWORK JAIL LABWORK JAIL LAB WORK LABWORK JAIL LAB WORK LABWORK LABWORK LABWORK LABWORK LABWORK LABWORK Chief Complaint JAIL LAB WOR K LABWORK JAIL LABWORK LABWORK JAIL LABWORK JAIL LAB WORK LABWORK JAIL LAB WORK LABWORK LABWORK LABWORK LABWORK LABWORK LABWORK LABWORK Chief Complaint JAIL LABWORK LABWORK JAIL LABWORK JAIL LAB WORK LABWORK JAIL LAB WORK LABWORK LABWORK LABWORK LABWORK LABWORK LABWORK LABWORK JAIL LAB WORK LABWORK Chief Complaint LABWORK JAIL LABWORK JAIL LAB WORK LABWORK JAIL LAB WORK LABWORK LABWORK LABWORK LABWORK LABWORK LABWORK LABWORK JAIL LAB WORK LABWORK LABWORK LABWORK Chief Complaint LABWORK JAIL LAB WORK LABWORK LABWORK LABWORK LABWORK LABWORK LABWORK LABWORK JAIL LAB WORK LABWORK LABWORK LABWORK JAIL LAB WORK JAIL LAB WORK Chief Complaint JAIL LAB WOR K LABWORK LABWORK LABWORK LABWORK LABWORK LABWORK LABWORK JAIL LAB WORK LABWORK LABWORK LABWORK JAIL LAB WORK JAIL LAB WORK LABWORK Chief Complaint JAIL LABWORK JAIL LAB WORK JAIL LAB WORK JAIL LABWORK LABWORK JAIL LAB WORK LABWORK JAIL LABWORK JAIL LAB WORK LABWORK\ LABWORK JAIL LAB WORK LABWORK JAIL LABWORK LABWORK JAIL LABWORK Chief Complaint JAIL LABWORK JAIL LAB WORK JAIL LAB WORK JAIL LABWORK LABWORK JAIL LAB WORK LABWORK JAIL LABWORK JAIL LAB WORK LABWORK\ LABWORK JAIL LAB WORK LABWORK JAIL LABWORK LABWORK JAIL LABWORK JAIL LAB WORK Chief Complaint Admit Date JAIL LAB WORK March 11 5:00am JAIL LAB WORK March 18 5:00am LABWORK March 25, 2024 5:00am LABWORK April 01, 2024 5 :00am JAIL LAB WORK April 08, 2024 5:00am LABWORK April 15, 2024 5:00am LABWORK April 22, 2024 5:00am JAIL LAB WORK April 29 5:00am LABWORK May 06, 2024 5: 00am JAIL LAB WORK May 13, 2024 4:00am LABWORK May 20, 2024 5 :00am JAIL LAB WORK May 27, 2024 5:00am LABWORK June 03, 2024 5 :00am LABWORK June 07, 2024 5 :00am JAIL LAB WORK June 10 5:00am LABWORK June 17, 2024 5:00am JAIL LAB WORK June 24 5:00am Chief Complaint Admit Date LABWORK April 01, 2024 5 :00am JAIL LAB WORK April 08, 2024 5:00am LABWORK April 15, 2024 5:00am LABWORK April 22, 2024 5:00am JAIL LAB WORK April 29 5:00am LABWORK May 06, 2024 5: 00am JAIL LAB WORK May 13, 2024 4:00am LABWORK May 20, 2024 5 :00am JAIL LAB WORK May 27, 2024 5:00am LABWORK June 03, 2024 5 :00am LABWORK June 07, 2024 5 :00am JAIL LAB WORK June 10 5:00am LABWORK June 17, 2024 5:00am JAIL LAB WORK June 24 5:00am JAIL LAB WORK June 27 2:00am JAIL LAB WORK July 01, 2024 4: 00am LABWORK July 08, 2024 5:0 0am JAIL LAB WORK July 16, 2024 4 :00am Chief Complaint Admit Date JAIL LAB WORK April 08, 2024 5:00am LABWORK April 15, 2024 5:00am LABWORK April 22, 2024 5:00am JAIL LAB WORK April 29 5:00am LABWORK May 06, 2024 5: 00am JAIL LAB WORK May 13, 2024 4:00am LABWORK May 20, 2024 5 :00am JAIL LAB WORK May 27, 2024 5:00am LABWORK June 03, 2024 5 :00am LABWORK June 07, 2024 5 :00am JAIL LAB WORK June 10 5:00am LABWORK June 17, 2024 5:00am JAIL LAB WORK June 24 5:00am JAIL LAB WORK June 27 2:00am JAIL LAB WORK July 01, 2024 4: 00am LABWORK July 08, 2024 5:0 0am JAIL LAB WORK July 15, 2024 5 :00am JAIL LAB WORK July 16, 2024 4 :00am Chief Complaint Admit Date LABWORK April 15, 2024 5:00am LABWORK April 22, 2024 5:00am JAIL LAB WORK April 29 5:00am LABWORK May 06, 2024 5: 00am JAIL LAB WORK May 13, 2024 4:00am LABWORK May 20, 2024 5 :00am JAIL LAB WORK May 27, 2024 5:00am LABWORK June 03, 2024 5 :00am LABWORK June 07, 2024 5 :00am JAIL LAB WORK June 10 5:00am LABWORK June 17, 2024 5:00am JAIL LAB WORK June 24 5:00am JAIL LAB WORK June 27 2:00am JAIL LAB WORK July 01, 2024 4: 00am LABWORK July 08, 2024 5:0 0am JAIL LAB WORK July 15, 2024 5 :00am JAIL LAB WORK July 16, 2024 4 :00am JAIL LAB WORK July 22, 2024 5 :00am Chief Complaint Admit Date LABWORK April 22, 2024 5:00am JAIL LAB WORK April 29 5:00am LABWORK May 06, 2024 5: 00am JAIL LAB WORK May 13, 2024 4:00am LABWORK May 20, 2024 5 :00am JAIL LAB WORK May 27, 2024 5:00am LABWORK June 03, 2024 5 :00am LABWORK June 07, 2024 5 :00am JAIL LAB WORK June 10 5:00am LABWORK June 17, 2024 5:00am JAIL LAB WORK June 24 5:00am JAIL LAB WORK June 27 2:00am JAIL LAB WORK July 01, 2024 4: 00am LABWORK July 08, 2024 5:0 0am JAIL LAB WORK July 15, 2024 5 :00am JAIL LAB WORK July 16, 2024 4 :00am JAIL LAB WORK July 22, 2024 5 :00am LABWORK July 29, 2024 5:0 0am Chief Complaint Admit Date JAIL LAB WORK May 13, 2024 4:00am LABWORK May 20, 2024 5 :00am JAIL LAB WORK May 27, 2024 5:00am LABWORK June 03, 2024 5 :00am LABWORK June 07, 2024 5 :00am JAIL LAB WORK June 10 5:00am LABWORK June 17, 2024 5:00am JAIL LAB WORK June 24 5:00am JAIL LAB WORK June 27 2:00am JAIL LAB WORK July 01, 2024 4: 00am LABWORK July 08, 2024 5:0 0am JAIL LAB WORK July 15, 2024 5 :00am JAIL LAB WORK July 16, 2024 4 :00am JAIL LAB WORK July 22, 2024 5 :00am LABWORK July 29, 2024 5:0 0am JAIL LAB WORK August 05, 2024 5: 00am JAIL LAB WORK August 12, 2024 5 :00am Chief Complaint Admit Date LABWORK May 20, 2024 5 :00am JAIL LAB WORK May 27, 2024 5:00am LABWORK June 03, 2024 5 :00am LABWORK June 07, 2024 5 :00am JAIL LAB WORK June 10 5:00am LABWORK June 17, 2024 5:00am JAIL LAB WORK June 24 5:00am JAIL LAB WORK June 27 2:00am JAIL LAB WORK July 01, 2024 4: 00am LABWORK July 08, 2024 5:0 0am JAIL LAB WORK July 15, 2024 5 :00am JAIL LAB WORK July 16, 2024 4 :00am JAIL LAB WORK July 22, 2024 5 :00am LABWORK July 29, 2024 5:0 0am JAIL LAB WORK August 05, 2024 5: 00am JAIL LAB WORK August 12, 2024 5 :00am LABWORK August 26, 2024 5:0 0am Chief Complaint Admit Date LABWORK June 03, 2024 5 :00am LABWORK June 07, 2024 5 :00am JAIL LAB WORK June 10 5:00am LABWORK June 17, 2024 5:00am JAIL LAB WORK June 24 5:00am JAIL LAB WORK June 27 2:00am JAIL LAB WORK July 01, 2024 4: 00am LABWORK July 08, 2024 5:0 0am JAIL LAB WORK July 15, 2024 5 :00am JAIL LAB WORK July 16, 2024 4 :00am JAIL LAB WORK July 22, 2024 5 :00am LABWORK July 29, 2024 5:0 0am JAIL LAB WORK August 05, 2024 5: 00am JAIL LAB WORK August 12, 2024 5 :00am JAIL LAB WORK August 19, 2024 4 :00am JAIL LAB WORK August 23, 2024 5 :00am LABWORK August 26, 2024 5:0 0am LABWORK September 09, 2024 5:00a m Chief Complaint Admit Date LABWORK June 07, 2024 5 :00am JAIL LAB WORK June 10 5:00am LABWORK June 17, 2024 5:00am JAIL LAB WORK June 24 5:00am JAIL LAB WORK June 27 2:00am JAIL LAB WORK July 01, 2024 4: 00am LABWORK July 08, 2024 5:0 0am JAIL LAB WORK July 15, 2024 5 :00am JAIL LAB WORK July 16, 2024 4 :00am JAIL LAB WORK July 22, 2024 5 :00am LABWORK July 29, 2024 5:0 0am JAIL LAB WORK August 05, 2024 5: 00am JAIL LAB WORK August 12, 2024 5 :00am JAIL LAB WORK August 19, 2024 4 :00am JAIL LAB WORK August 23, 2024 5 :00am LABWORK August 26, 2024 5:0 0am JAIL LAB WORK September 02, 2024 4:00 am LABWORK September 09, 2024 5:00a m LABWORK September 11, 2024 5:00a m Chief Complaint Admit Date JAIL LAB WORK July 01, 2024 4: 00am LABWORK July 08, 2024 5:0 0am JAIL LAB WORK July 15, 2024 5 :00am JAIL LAB WORK July 16, 2024 4 :00am JAIL LAB WORK July 22, 2024 5 :00am LABWORK July 29, 2024 5:0 0am JAIL LAB WORK August 05, 2024 5: 00am JAIL LAB WORK August 12, 2024 5 :00am JAIL LAB WORK August 19, 2024 4 :00am JAIL LAB WORK August 23, 2024 5 :00am LABWORK August 26, 2024 5:0 0am JAIL LAB WORK September 02, 2024 4:00 am LABWORK September 09, 2024 5:00a m LABWORK September 11, 2024 5:00a m JAIL LAB WORK September 16, 2024 5:0 0am JAIL LAB WORK September 24, 2024 4:0 0am Chief Complaint Admit Date JAIL LAB WORK August 05, 2024 5: 00am JAIL LAB WORK August 12, 2024 5 :00am JAIL LAB WORK August 19, 2024 4 :00am JAIL LAB WORK August 23, 2024 5 :00am LABWORK August 26, 2024 5:0 0am JAIL LAB WORK September 02, 2024 4:00 am LABWORK September 09, 2024 5:00a m LABWORK September 11, 2024 5:00a m JAIL LAB WORK September 16, 2024 5:0 0am JAIL LAB WORK September 24, 2024 4:0 0am LABWORK September 30, 2024 5:00a m LABWORK October 07, 2024 5:00a m JAIL LAB WORK October 14, 2024 4: 00am JAIL LAB WORK October 21, 2024 4: 00am LABWORK October 28, 2024 5:00 am JAIL LAB WORK November 04, 2024 4:0 0am JAIL LAB WORK November 11, 2024 5: 00am Additional Source Comments (unrecognized sect ion and content) No Status Records FoundNo Status Records FoundNo Status Records FoundNo Status Records FoundNo Status Records FoundNo Status Records Found INFORMATION SOURCE (unrecogn ized section and content) DATE CREATED AUTHOR 09/04/2018 [facility] DATE CREATED AUTHOR AUTHOR'S ORGANIZ ATION 10/06/2018 [facility] DATE CREATED AUTHOR AUTHOR'S ORGANIZ ATION 03/26/2021 [facility] DATE CREATED AUTHOR AUTHOR'S ORGANIZ ATION 05/21/2021 [facility] DATE CREATED AUTHOR AUTHOR'S ORGANIZ ATION 06/28/2024 [facility] DATE CREATED AUTHOR AUTHOR'S ORGANIZ ATION 02/22/2025 [facility] Source Comments (unrecognize d section and content) In the event this informatio n is protected by the Federal Confidentiality of Alcohol and Drug Abuse Patient Records regulations: The Federal rules restrict any use of the information to criminally investigate or prosecute any alcohol or drug abuse patient.[facility] Reason for Visit (unrecogniz ed [...] Per NG tube, DAILY, First dose on Mon03/20/21 at 0900 0754 (Given - Provider: Tra Pearl, KUSHAL) 0914 (Given - Provider: Jovana Armstrong, KUSHAL) 0914 (Given - Provider: Sandeep Thompson, KUSHAL) atorvastatin (LIPITOR) tablet 40 mg 40 mg, Per NG tube, NIGHTLY, First dose on Mon03/19/21 at 2323 2207 (Given - Provider: Nancy Solorio, KUSHAL) 2148 (Given - Provider: Nancy Solorio, KUSHAL) [...] 2148 (Given - Provider: Nancy Solorio RN) 09 [...] 4 HOURS WHILE AWAKE, First dose on Mon21 at 1200 0953 (Given - Provider: Amelie Taylor [facility])1356 (Given - Provider: Amelie Taylor, [facility])1648 (Given - Provider: Amelie Taylor [facility])2212 (Given - Provider: Claire Lagos [facility]) 0841 (Given - Provider: Ana Cabrera [facility])1213 (Given - Provider: Ana Cabrera [facility])1622 (Given - Provider: Ana Cabrera [facility])2037 (Given - Provider: Perla Loyola [facility]) 1020 (Given - Provider: Gabriel Soares [facility])1200 (Due)1600 (Due)2000 (Due) lansoprazole (PREVACID SOLUTAB) [...] 2323 1003 (Given - Provider: Amelie Taylor [facility])2215 (Given - Provider: Claire Lagos COMMUNICATIONS PROGRAMMER) 0841 (Given - Provider: Ana Cabrera COMMUNICATIONS PROGRAMMER)2051 (Given - Provider: Perla Loyola [facility]) 1200 (Due - Provider: Gabriel Soares [facility])2100 (Due) sodium chloride flush 0.9 % injection [...] Armstrong RN)2150 (Given - Provider: Nancy Solorio, KUSHAL) 0918 (Given - Provider: Sandeep Thompson, RN)2100 [...] Status Dates Renard Burgos Attending Provider Active Parts Salesman Relationship Specialty Start Date End Date Loretta Renard [address] [place] [phone] PCP - General Internal Medicine 10/16/23 Parts Salesman Relationship Specialty Start Date End Date LorettaRenard [address] [place] [phone] PCP - General Internal Medicine 10/16/23 Parts Salesman Relationship Specialty Start Date End Date Loretta Renard [address] [place] [phone] PCP - General Internal Medicine 10/16/23 Parts Salesman Relationship Specialty Start Date End Date Renard Burgos [address] [place] [phone] PCP - General Internal Medicine 10/16/23 Team [...] Provider Active Sta rt: September 09, 2024 Parts Salesman Relationship Specialty Start Date End Date Renard Burgos [address] [facility] [address] [place] [phone] PCP - General Internal Medicine 10/16/23 Team [...] BE BASED ON THE PRIMARY CLINICAL RECORDS. [facility], [facility]. provides no warranty or guarantee of the accuracy or completeness of information in this document.
[2025-02-24 08:56] LABS: Hematocrit 42.2 % (40-54); Hemoglobin 14.0 g/dL (13.0-16.5); Immature Granulocytes Count 0.020 X10^3/uL (0.0-0.0); Mean Corp Hgb Conc 33.2 g/dL (32-36); Mean Corpuscular Volume 90.8 fL (80-94); Mean Platelet Vol. 11.2 fl (6.2-12.0); NRBC Flagged by Analyzer 0 % (0-5); Platelet Count 211 K/mm3 (150-450); RBC Distribution Width CV 13.3 % (11.6-14.6); RBC Distribution Width SD 44.7 fl (35.1-43.9); Red Blood Count 4.65 M/mm3 (4.6-6.2); White Blood Count 8.1 K/mm3 (4.4-11.0)
== END ==
LOC: OLS.SANC 05:00
PROVIDERS: Visit Provider Internal Medicine
DX: N40.0 Benign prostatic hyperplasia without lower urinary tract symptoms (principal); E03.9 Hypothyroidism, unspecified
CPT/HCPCS: 36415; 85025

== ENCOUNTER → 2025-03-03 | Outpatient (REF) | payer MEDICAID, SELFPAY ==
--- OUTSIDE RECORDS SUMMARY | 2025-03-03 04:06 | XMS RPT_ITS | CCD ---
Author Organization [facility] Care Team Providers Care Cement Mason Helper Name Role Phone JORDAN OREILLY Attending Unavailable PROVIDER, UNKNOWN Referring Unavailable Nathanael Cazares Primary Care Unavailable PROVIDER, UNKNOWN Referring Unavailable Nathanael Cazares Primary Care Unavailable Jaime Lindquist Attending Unavailable Unavailable Primary Care Provider UnavailBethany Navarrete Primary Care Provider Jarvis Kendall MD Unavailable [phone] Bethany Russell MD Primary Care Provider Unavailable [...] Provider Unavailab le Katsaros OLS, Renard Attending Physician Unavaila ble Katsaros OLS, Renard Referring Provider Unavailab le Katsaros OLS, Renard Primary Care Physician Unava ilable Katsaros OLS, Renard Referring Unavailable Katsaros OLS, [...] OLS, Renard Attending Unavailable Katsaros OLS, Renard Primary Care Unavailable Katsaros OLS, Renard Attending Unavailable Katsaros OLS, Renard Attending Unavailable Katsaros OLS, Renard Referring Unavailable Katsaros OLS, Renard Attending Unavailable Katsaros OLS, Renard Attending Unavailable Katsaros OLS, Renard Attending Unavailable Katsaros OLS, Renard Attending Unavailable Katsaros OLS, Renard Attending Unavailable Katsaros OLS, Renard Attending Unavailable Katsaros OLS, Renard Attending Unavailable Katsaros OLS, Reanrd Attending Unavailable Katsaros OLS, Renard Attending Unavailable [...] Katsaros OLS, Renard Attending Unavailable Katsaros OLS, Reanrd Attending Unavailable Medications Current Medications Medication Drug Class(es) Dates Sig (Normalized) Sig (Original) Acetaminophen (18 sources) Start: 03-20-2021 acetaminophen (TYLENOL) tablet 650 mg Start: 05-22-2019 ACETAMINOPHEN 325 MG TABS 2 tablet via peg tube as needed ACETAMINOPHEN [id number] Ana Stevenson [facility] albuterol 0.83 mg/ml inhalation solution (1 source) beta2-Adrenergic Agonist Start: 03-19-2021 albut veronica (PROVENTIL) nebulizer solution 2.5 mg albuterol 0.833 mg/ml / ipratropium bromide 0.167 mg/ml inhalation solution (18 sources) Anticholinergic, beta2-Adrenergic Agonist Start: 03-20-2021 ipratropium-alb utero l (DUONEB) nebulizer solution 1 ampule Start: 05-22-2019 IPRATROPIUM-AL BUTEROL 0.5-2.5 (3) MG/3ML SOLN 3ml via nebulizer every 4 hours as needed IPRATROPIUM-ALBUTEROL [id number] 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-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 take 3 mL by inhalat ion every four hours ipratropium-albuterol (DUONEB) 0.5-2.5 (3) MG/3ML SOLN nebulizer solution Inhale 3 mLs into the lungs every 4 hours 360 mL 0 08/22/2018 Active aspirin 81 mg chewable tablet (9 sources) Platelet Aggregation Inhibitor, Nonsteroidal Anti-inflammatory Drug Start: 05-22-2019 ASPIRIN ADULT LOW STRENGTH 81 MG CHEW one tablet via peg tube daily ASPIRIN [id number] Ana Stevenson [facility] Start: 08-23-2018 aspirin 81 MG chewable tablet 1 tablet by Per NG tube route daily 30 tablet 3 08/23/2018 Active atorvastatin 40 mg oral tablet (9 sources) HMG-CoA Reductase Inhibitor Start: 05-22-2019 ATORVASTATIN CALCIUM 40 MG TABS one tablet via peg tube daily ATORVASTATIN CALCIUM [id number] [facility] Start: 08-22-2018 atorvastatin ( LIPITOR) 40 MG tablet 1 tablet by Per NG tube route nightly 30 tablet 3 08/22/2018 Active castor oil 0.788 mg/mg / lebanese balsam 0.087 mg/mg topical ointment (7 sources) Standardized Chemical Allergen Start: 08-22-2018 Balsam [place] O il (VENELEX) OINT ointment Apply topically [...] 250mg via peg tube twice daily CLOZAPINE [id number] [facility] Start: 08-22-2018 cloZAPine (AILYN ZARIL) 100 MG [...] via peg tube twice daily DOCUSATE SODIUM [id number] [facility] Start: 08-22-2018 docusate (COLA CE) 50 MG/5ML liquid 10 mLs by Per NG tube route 2 times daily 0 08/22/2018 Active take 1 capsule by mo [facility] twice daily docusate sodium [...] one tablet via peg tube nightly MELATONIN [id number] [facility] Start: 08-22-2018 melatonin 3 MG [...] needed. 0 08/23/2018 Active polyethylene glycol 3350 74796 mg powder for oral solution (1 source) [...] Sig (Normalized) Sig (Original) barium sulfate (Varibar [place], Varibar Honey) 40 % suspension 5 mL [...] SUPP every 24 hours as needed BISACODYL [id number] Ana Stevenson [employer] HEL[employer] Start: 05-22-2019 BISACODYL EC 5 MG TBEC one tablet via peg tube daily as needed BISACODYL [id number] Ana Stevenson [employer] chlorhexidine gluconate 1.2 mg/ml mouthwash (10 sources) Start: 05-22-2019 PERIDEX 0.12 % SOLN 15ml twice daily CHLORHEXIDINE GLUCONATE [id number] Ana Stevenson LPN chlorhexidine (P eridex) 0.12 % solution Use 15 mL in the mouth or throat if needed for wound care. Active cholecalciferol 1000 unt oral tablet (16 sources) Vitamin D Start: 05-22-2019 VITAMIN D3 25 MCG (1000 UT) TABS one tablet via peg tube daily CHOLECALCIFEROL [id number] Ana Stevenson LPN cholecalciferol (SM Vitamin D3) 25 MCG (1000 UT) tablet Take 1,000 Units by mouth daily. Active dextromethorphan hydrobromide 2 mg/ml / guaiFENesin 20 mg/ml oral solution (1 source) Uncompetitive T-rsthyg-I-aspartate Receptor Antagonist, Sigma-1 Agonist Start: 05-22-2019 ROBITUSSIN PEAK COLD DM SYRP 5ml via peg tube every 4 hours as needed for cough DEXTROMETHORPHAN-GUAIFENESIN SYRP [id number] Ana Stevenson LPN magnesium hydroxide 240 mg/ml oral suspension (1 source) Start: 05-22-2019 MILK OF MAGNESIA CONCENTRATE SUSP 30ml via peg tube every 24 hours MAGNESIUM HYDROXIDE SUSP [id number] Ana Stevenson LPN methylPREDNISolone 40 mg injection (2 sources) Corticosteroid Start: 03-20-2021 End: 03-24-2021 methylPREDNISolone sodium (SOLU-MEDROL) injection 40 mg MULTIPLE VITAMINS-MINERALS (1 source) Start: 05-22-2019 MENS MULTIVITAMIN TABS one tablet via peg tube daily MULTIPLE VITAMINS-MINERALS [id number] Ana Stevenson LPN POLYETHYLENE GLYCOL 1450 (1 source) Start: 05-22-2019 POLYETHYLENE GLYCOL 1450 POW D 17 grams via peg tube twice daily POLYETHYLENE GLYCOL 1450 [id number] Ana Stevenson LPN SENNOSIDES-DOCUSATE SODIUM (1 source) Start: 05-22-2019 SENNA PLUS 8.6-50 MG TABS on e tablet via peg tube daily SENNOSIDES-DOCUSATE SODIUM 52203680966 Ana Stevenson LPN 50 ml sodium chloride [...] sources) [facility] (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; Translations: [[facility] (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] Onset: 9 Episodic Other aftercare (2 sources) 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; Translations: [Other shelter [...] 9 07-23-2018 Episodic Other aftercare (1 source) 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; Translations: [[facility] (current) use of antibiotics] Onset: 5 Episodic Other aftercare (1 source) 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; Translations: [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] Onset: 5 Episodic [...] Test Name Value Interpretation Reference Range Facility Absolute lymphocyte countOrd ered By: Renard Burgos on 02-24-2025 Lymphocytes Auto (Unsp spec) [#/Vol] 1.98 10*3/uL 0.83-4.51 [facility] Absolute neutrophil countOrd ered By: Renard Burgos on 02-24-2025 Neutrophils (Bld) [#/Vol] 5.4 10*3/uL 2.0-7.7 [facility] Automated lymphocyte count a s percentage of total leukocytesOrdered By: Renard Burgos on 02-24-2025 Lymphocytes/100 WBC Auto (Unsp spec) 24.6 % 19-41 [facility] Basophil percentageOrdered B y: Renard Hensleyrustam on 02-24-2025 Basophils/100 WBC (Bld) 0.5 % 0-1 [facility] CBC W/Diff, Automatedon 01-30 Absolute Lymph 1.98 X10 3/uL Normal 0.83-4.51 [facility] Comment on above: Order Comment: 109-1 Performed By: #### L 100.0100 ####[facility] [address] [place], [address] Absolute Neut 5.4 X10 3/uL Normal 2.0-7.7 [facility] Comment on above: Order Comment: 109-1 Performed By: #### L 100.0100 ####[facility] [address] [place], [address] Basophils/100 WBC (Bld) 0.5 % Normal 0-1 [facility] Comment on above: Order Comment: 109-1 Performed By: #### L 100.0100 ####[facility] [address] [place], [address] Eosinophils/100 WBC (Bld) 0.9 % Normal 0-5 [facility] Comment on above: Order Comment: 109-1 Performed By: #### L 100.0100 ####[facility] [address] [place], [address] Erythrocyte distribution width (RBC) [Ratio] 13.3 % Normal 11.6-14.6 [facility] Comment on above: Order Comment: 109-1 Performed By: #### L 100.0100 ####[facility] [address] [place], [address] Hematocrit (Bld) [Volume fraction] 42.2 % Normal 40-54 [facility] Comment on above: Order Comment: 109-1 Performed By: #### L 100.0100 ####[facility] [address] [place], [address] Hemoglobin (Bld) [Mass/Vol] 14.0 g/dL Normal 13.0-16.5 [facility] Comment on above: Order Comment: 109-1 Performed By: #### L 100.0100 ####[facility] [address] [place], [address] IG% 0.200 Normal 0.0-0.9 [facility] Comment on above: Order Comment: 109-1 Result Comment: IG% - Immature Granulocytes (promyelocytes, myelocytes andmetamyelocytes) > 1% indicates that a LEFT SHIFT is Present. Performed By: #### L 100.0100 ####[facility] [address] [place], [address] Lymphocytes/100 WBC (Bld) 24.6 % Normal 19-41 [facility] Comment on above: Order Comment: 109-1 Performed By: #### L 100.0100 ####[facility] [address] [place], [address] MCH (RBC) [Entitic mass] 30.1 pg Normal 27.0-32.0 [facility] Comment on above: Order Comment: 109-1 Performed By: #### L 100.0100 ####[facility] [address] [place], [address] MCHC (RBC) [Mass/Vol] 33.2 g/dL Normal 32-36 [facility] Comment on above: Order Comment: 109-1 Performed By: #### L 100.0100 ####[facility] [address] [place], [address] MCV (RBC) [Entitic vol] 90.8 fL Normal 80-94 [facility] Comment on above: Order Comment: 109-1 Performed By: #### L 100.0100 ####[facility] [address] [place], [address] Monocytes/100 WBC (Bld) 7.1 % Normal 0-10 [facility] Comment on above: Order Comment: 109-1 Performed By: #### L 100.0100 ####[facility] [address] [place], [address] Neutrophils/100 WBC (Bld) 66.7 % Normal 47-70 [facility] Comment on above: Order Comment: 109-1 Performed By: #### L 100.0100 ####[facility] [address] [place], [address] Nucleated RBC (Bld) [#/Vol] 0 10*3/uL Normal 0-5 [facility] Comment on above: Order Comment: 109-1 Performed By: #### L 100.0100 ####[facility] [address] [place], [address] Platelet mean volume (Bld) [Entitic vol] 11.2 fL Normal 6.2-12.0 [facility] Comment on above: Order Comment: 109-1 Performed By: #### L 100.0100 ####[facility] [address] [place], [address] Platelets (Bld) [#/Vol] 211 10*3/uL Normal 150-450 [facility] Comment on above: Order Comment: 109-1 Performed By: #### L 100.0100 ####[facility] [address] [place], [address] RBC (Bld) [#/Vol] 4.65 10*6/uL Normal 4.6-6.2 [facility] Comment on above: Order Comment: 109-1 Performed By: #### L 100.0100 ####[facility] [address] [place], [address] RDW SD 44.7 fl High 35.1-43.9 [facility] Comment on above: Order Comment: 109-1 Performed By: #### L 100.0100 ####[facility] [address] [place], [address] WBC (Bld) [#/Vol] 8.1 10*3/uL Normal 4.4-11.0 [facility] Comment on above: Order Comment: 109-1 Performed By: #### L 100.0100 ####[facility] [address] [place], [address] Eosinophil percentageOrdered By: Renard Burgos on 02-24-2025 Eosinophils/100 WBC (Bld) 0.9 % 0-5 [facility] Erythrocyte distribution wid th ratioOrdered By: Renard Burgos on 02-24-2025 Erythrocyte distribution width (RBC) [Ratio] 13.3 % 11.6-14.6 [facility] Erythrocyte distribution wid th standard deviationOrdered By: Renard Burgos on 02-24-2025 Erythrocyte distribution width (RBC) [Ratio] 44.7 fl High 35.1-43.9 [facility] Hematocrit Auto (Bld) [Volum e fraction]Ordered By: Renard Burgos on 02-24-2025 Hematocrit (Bld) [Volume fraction] 42.2 % 40-54 [facility] Hemoglobin measurementOrdere d By: Renard Burgos on 02-24-2025 Hemoglobin (Bld) [Mass/Vol] 14.0 g/dL 13.0-16.5 [facility] Immature granulocytes/100 WB C Auto (Bld)Ordered By: Renard Burgos on 02-24-2025 Immature granulocytes/100 WBC (Bld) 0.200 % 0.0-0.9 [facility] Comment on above: IG% - Immature Granu locytes (promyelocytes, myelocytes and metamyelocytes) > 1% indicates that a LEFT SHIFT is Present. MCV (mean corpuscular volume ) determinationOrdered By: Renard Burgos on 02-24-2025 MCV (RBC) [Entitic vol] 90.8 fL 80-94 [facility] Mean corpuscular hemoglobin (MCH) determinationOrdered By: Renard Burgos on 02-24-2025 MCH (RBC) [Entitic mass] 30.1 pg 27.0-32.0 [facility] Mean corpuscular hemoglobin concentration (MCHC) determinationOrdered By: Renard Burgos on 02-24-2025 MCHC (RBC) [Mass/Vol] 33.2 g/dL 32-36 [facility] Mean platelet volume determi nationOrdered By: Renard Burgos on 02-24-2025 Platelet mean volume (Bld) [Entitic vol] 11.2 fL 6.2-12.0 [facility] Monocyte percentageOrdered B y: Renard Burgos on 02-24-2025 Monocytes/100 WBC (Bld) 7.1 % 0-10 [facility] Neutrophil percentageOrdered By: Renard Burgos on 02-24-2025 Neutrophils/100 WBC (Bld) 66.7 % 47-70 [facility] Nucleated red blood cell per centageOrdered By: Renard Burgos on 02-24-2025 Nucleated RBC/100 WBC (Bld) [Ratio] 0 % 0-5 [facility] Platelet countOrdered By: Garrick Bhatt on 02-24-2025 Platelets (Bld) [#/Vol] 211 10*3/uL 150-450 [facility] RBC Auto (Bld) [#/Vol]Ordere d By: Renard Burgos on 02-24-2025 RBC (Bld) [#/Vol] 4.65 10*6/uL 4.6-6.2 [facility] White blood cell (WBC) count Ordered By: Renard Burgos on 02-24-2025 WBC (Bld) [#/Vol] 8.1 10*3/uL 4.4-11.0 [facility] Anion gap in Serum or Plasma Ordered By: Renard Burgos on 02-21-2025 Anion gap [Moles/Vol] 10 mmol/L 5-15 [facility] BUN/creatinine ratioOrdered By: Renard Burgos on 02-21-2025 Urea nitrogen/Creatinine [Mass ratio] 30.1 mg/mg High 10-20 [facility] Bilirubin, totalOrdered By: Renard Burgos on 02-21-2025 Bilirubin [Mass/Vol] 0.40 mg/dL 0.00-1.30 [facility] CBC-Complete Blood Cnt No Di ffon 02-21-2025 Erythrocyte distribution width (RBC) [Ratio] 13.7 % Normal 11.6-14.6 [facility] Comment on above: Order Comment: 109.1 Performed By: #### L 500.4100, L501.9985, L100.0500, L500.4050 ####[facility] [address] [place], [address] Hematocrit (Bld) [Volume fraction] 42.1 % Normal 40-54 [facility] Comment on above: Order Comment: 109.1 Performed By: #### L 500.4100, L501.9985, L100.0500, L500.4050 ####[facility] [address] [place], [address] Hemoglobin (Bld) [Mass/Vol] 13.6 g/dL Normal 13.0-16.5 [facility] Comment on above: Order Comment: 109.1 Performed By: #### L 500.4100, L501.9985, L100.0500, L500.4050 ####[facility] [address] [place], [address] MCH (RBC) [Entitic mass] 30.2 pg Normal 27.0-32.0 [facility] Comment on above: Order Comment: 109.1 Performed By: #### L 500.4100, L501.9985, L100.0500, L500.4050 ####[facility] [address] [place], [address] MCHC (RBC) [Mass/Vol] 32.3 g/dL Normal 32-36 [facility] Comment on above: Order Comment: 109.1 Performed By: #### L 500.4100, L501.9985, L100.0500, L500.4050 ####[facility] [address] [place], [address] MCV (RBC) [Entitic vol] 93.3 fL Normal 80-94 [facility] Comment on above: Order Comment: 109.1 Performed By: #### L 500.4100, L501.9985, L100.0500, L500.4050 ####[facility] [address] [place], [address] Platelet mean volume (Bld) [Entitic vol] 11.6 fL Normal 6.2-12.0 [facility] Comment on above: Order Comment: 109.1 Performed By: #### L 500.4100, L501.9985, L100.0500, L500.4050 ####[facility] [address] [place], [address] Platelets (Bld) [#/Vol] 173 10*3/uL Normal 150-450 [facility] Comment on above: Order Comment: 109.1 Performed By: #### L 500.4100, L501.9985, L100.0500, L500.4050 ####[facility] [address] [place], [address] RBC (Bld) [#/Vol] 4.51 10*6/uL Low 4.6-6.2 [facility] Comment on above: Order Comment: 109.1 Performed By: #### L 500.4100, L501.9985, L100.0500, L500.4050 ####[facility] [address] [place], [address] RDW SD 46.5 fl High 35.1-43.9 [facility] Comment on above: Order Comment: 109.1 Performed By: #### L 500.4100, L501.9985, L100.0500, L500.4050 ####[facility] [address] [place], [address] WBC (Bld) [#/Vol] 10.2 10*3/uL Normal 4.4-11.0 [facility] Comment on above: Order Comment: 109.1 Performed By: #### L 500.4100, L501.9985, L100.0500, L500.4050 ####[facility] [address] [place], [address] Calculated very low density lipoprotein (VLDL) cholesterol measurementOrdered By: Renard Burgos on 02-21-2025 Calculated very low density lipoprotein (VLDL) cholesterol measurement 37 mg/dL 5-40 [facility] Carbon dioxide, total [Moles /volume] in Central venous bloodOrdered By: Renard Burgos on 02-21-2025 CO2 [Moles/Vol] 22.4 mmol/L 21.0-32.0 [facility] Chloride assayOrdered By: Garrick Bhatt on 02-21-2025 Chloride [Moles/Vol] 104 mmol/L 98-108 [facility] Comprehensive Metabolic Prof ilon 02-21-2025 Albumin [Mass/Vol] 3.3 g/dL Low 3.4-4.8 [facility] Comment on above: Order Comment: 109.1 Performed By: #### L 500.4100, L501.9985, L100.0500, L500.4050 ####[facility] [address] [place], [address] Albumin/Globulin [Mass ratio] 1.1 {ratio} Normal 0.9-2.4 [facility] Comment on above: Order Comment: 109.1 Performed By: #### L 500.4100, L501.9985, L100.0500, L500.4050 ####[facility] [address] [place], [address] ALK PHOS 137 U/L High 40-129 [facility] Comment on above: Order Comment: 109.1 Performed By: #### L 500.4100, L501.9985, L100.0500, L500.4050 ####[facility] [address] [place], [address] ALT [Catalytic activity/Vol] 22 U/L Normal <=46 [facility] Comment on above: Order Comment: 109.1 Result Comment: Hemo lysis present, Results??could be affected.?? Performed By: #### L 500.4100, L501.9985, L100.0500, L500.4050 ####[facility] [address] [place], [address] AST [Catalytic activity/Vol] 39 U/L High <=37 [facility] Comment on above: Order Comment: 109.1 Result Comment: Hemo lysis present, Results??could be affected.?? Performed By: #### L 500.4100, L501.9985, L100.0500, L500.4050 ####[facility] [address] [place], [address] Bilirubin [Mass/Vol] 0.40 mg/dL Normal 0.00-1.30 [facility] Comment on above: Order Comment: 109.1 Performed By: #### L 500.4100, L501.9985, L100.0500, L500.4050 ####[facility] [address] [place], [address] BUN/CRE 30.1 RATIO High 10-20 [facility] Comment on above: Order Comment: 109.1 Performed By: #### L 500.4100, L501.9985, L100.0500, L500.4050 ####[facility] [address] [place], [address] Calcium [Mass/Vol] 8.6 mg/dL Normal 7.6-11.0 [facility] Comment on above: Order Comment: 109.1 Performed By: #### L 500.4100, L501.9985, L100.0500, L500.4050 ####[facility] [address] [place], [address] Chloride [Moles/Vol] 104 mmol/L Normal 98-108 [facility] Comment on above: Order Comment: 109.1 Performed By: #### L 500.4100, L501.9985, L100.0500, L500.4050 ####[facility] [address] [place], [address] CO2 [Moles/Vol] 22.4 mmol/L Normal 21.0-32.0 [facility] Comment on above: Order Comment: 109.1 Performed By: #### L 500.4100, L501.9985, L100.0500, L500.4050 ####[facility] [address] [place], [address] Creatinine [Mass/Vol] 0.63 mg/dL Low 0.70-1.20 [facility] Comment on above: Order Comment: 109.1 Performed By: #### L 500.4100, L501.9985, L100.0500, L500.4050 ####[facility] [address] [place], [address] GAP 10 Normal 5-15 [facility] Comment on above: Order Comment: 109.1 Performed By: #### L 500.4100, L501.9985, L100.0500, L500.4050 ####[facility] [address] [place], [address] GFR/1.73 sq M.predicted among non-blacks MDRD (S/P/Bld) [Vol rate/Area] 104 mL/min/{1.73_m2} Normal >60 [facility] Comment on above: Order Comment: 109.1 Result Comment: mL/m in/1.73m2 CKD-EPI Creatinine Equation (2020) Performed By: #### L 500.4100, L501.9985, L100.0500, L500.4050 ####[facility] [address] [place], [address] Globulin (S) [Mass/Vol] 3.0 g/dL Normal 2.2-4.2 [facility] Comment on above: Order Comment: 109.1 Performed By: #### L 500.4100, L501.9985, L100.0500, L500.4050 ####[facility] [address] [place], [address] Glucose [Mass/Vol] 104 mg/dL High 70-99 [facility] Comment on above: Order Comment: 109.1 Performed By: #### L 500.4100, L501.9985, L100.0500, L500.4050 ####[facility] [address] [place], [address] Potassium [Moles/Vol] 5.0 mmol/L Normal 3.3-5.1 [facility] Comment on above: Order Comment: 109.1 Result Comment: Hemo lysis present, Results??could be affected.?? Performed By: #### L 500.4100, L501.9985, L100.0500, L500.4050 ####[facility] [address] [place], [address] Sodium [Moles/Vol] 137 mmol/L Normal 133-145 [facility] Comment on above: Order Comment: 109.1 Performed By: #### L 500.4100, L501.9985, L100.0500, L500.4050 ####[facility] [address] [place], [address] T PROT 6.3 g/dL Normal 5.9-8.4 [facility] Comment on above: Order Comment: 109.1 Performed By: #### L 500.4100, L501.9985, L100.0500, L500.4050 ####[facility] [address] [place], [address] Urea nitrogen [Mass/Vol] 19 mg/dL Normal 4-19 [facility] Comment on above: Order Comment: 109.1 Performed By: #### L 500.4100, L501.9985, L100.0500, L500.4050 ####[facility] [address] [place], [place], [address] Erythrocyte distribution wid th ratioOrdered By: Renard Burgos on 02-21-2025 Erythrocyte distribution width (RBC) [Ratio] 13.7 % 11.6-14.6 [facility] Erythrocyte distribution wid th standard deviationOrdered By: Renard Burgos on 02-21-2025 Erythrocyte distribution width (RBC) [Ratio] 46.5 fl High 35.1-43.9 [facility] Glomerular filtration rate ( GFR) estimation/1.73 sq m using serum, plasma, or whole bOrdered By: Renard Burgos on 02-21-2025 GFR/1.73 sq M.predicted among non-blacks MDRD (S/P/Bld) [Vol rate/Area] 104 mL/min/{1.73_m2} >60 [facility] Comment on above: mL/min/1.73m2 CKD-EP I Creatinine Equation (2020) Hematocrit Auto (Bld) [Volum e fraction]Ordered By: Renard Burgos on 02-21-2025 Hematocrit (Bld) [Volume fraction] 42.1 % 40-54 [facility] Hemoglobin A1con 02-21-2025 HbA1c (Bld) [Mass fraction] 5.4 % Normal <=5.6 [facility] Comment on above: Order Comment: 109.1 Result Comment: Norm al < 5.7 % Prediabetic 5.7 - 6.4 % Diabetic >or= 6.5 % Please note range changes. Performed By: #### L 500.4100, L501.9985, L100.0500, L500.4050 ####[facility] [address] [place], [place], [id number] Hemoglobin A1c percentageOrd ered By: Renard Burgos on 02-21-2025 HbA1c (Bld) [Mass fraction] 5.4 % <5.7 [facility] Comment on above: Normal < 5.7 % Predi abetic 5.7 - 6.4 % Diabetic >or= 6.5 % Please note range changes. Hemoglobin measurementOrdere d By: Renard Burgos on 02-21-2025 Hemoglobin (Bld) [Mass/Vol] 13.6 g/dL 13.0-16.5 [facility] LDL calc ser/plasOrdered By: Renard Burgos on 02-21-2025 Cholesterol in LDL [Mass/Vol] 75 mg/dL [facility] Comment on above: Dsvzddoczz=208-944 m g/dL & Higher Qebv=805 mg/dL or greaterSampson Equation 2020 for LDL-C Laboratory - Chemistry and C hemistry - challengeOrdered By: Renard Burgos on 02-21-2025 AST [Catalytic activity/Vol] 39 U/L High <38 [facility] Comment on above: Hemolysis present, R esults could be affected. Lipid Profileon 02-21-2025 CHOL:HDL 4.32 Normal [facility] Comment on above: Order Comment: 109.1 Performed By: #### L 500.4100, L501.9985, L100.0500, L500.4050 ####[facility] [address] [place], [address] Cholesterol [Mass/Vol] 139 mg/dL Normal <=200 [facility] Comment on above: Order Comment: 109.1 Result Comment: Chol esterol level, Desirable <200 mg/dLBorderline high cholesterol 200-239 mg/dLHigh cholesterol >=240 mg/dLRecommendations of the NCEP Adult Treatment Panel for thefollowing risk-cutoff thresholds for the [place] Americanpopulation. Performed By: #### L 500.4100, L501.9985, L100.0500, L500.4050 ####[facility] [address] [place], [address] Cholesterol in HDL [Mass/Vol] 32 mg/dL Low [facility] Comment on above: Order Comment: 109.1 Result Comment: Lucy onal Cholesterol Education Program (NCEP) guidelines:<40 mg/dL: Low HDL-cholesterol (major risk factor for CHD)>= 60 mg/dL: High HDL-cholesterol (negative risk factor forCHD)HDL-cholesterol is affected by a number of factors, e.g.smoking, exercise, hormones, sex and age. Performed By: #### L 500.4100, L501.9985, L100.0500, L500.4050 ####[facility] [address] [place], [address] Cholesterol in LDL [Mass/Vol] 75 mg/dL Normal [facility] Comment on above: Order Comment: 109.1 Result Comment: Bord qetcly=562-190 mg/dL Higher Ulvr=616 mg/dL or greaterSampson Equation 2020 for LDL-C Performed By: #### L 500.4100, L501.9985, L100.0500, L500.4050 ####[facility] [address] [place], [address] Cholesterol in VLDL [Mass/Vol] 37 mg/dL Normal 5-40 [facility] Comment on above: Order Comment: 109.1 Performed By: #### L 500.4100, L501.9985, L100.0500, L500.4050 ####[facility] [address] [place], [address] Triglyceride [Mass/Vol] 185 mg/dL Normal [facility] Comment on above: Order Comment: 109.1 Result Comment: The drugs N-Acetylcysteine and Metamizole may falselydepress this assay.Normal range: <150 mg/dLBorderline High: 150-199 mg/dLHigh: 200-499 mg/dLVery High: >500 mg/dL Performed By: #### L 500.4100, L501.9985, L100.0500, L500.4050 ####[facility] [address] [place], [address] MCV (mean corpuscular volume ) determinationOrdered By: Renard Burgos on 02-21-2025 MCV (RBC) [Entitic vol] 93.3 fL 80-94 [facility] Mean corpuscular hemoglobin (MCH) determinationOrdered By: Renard Burgos on 02-21-2025 MCH (RBC) [Entitic mass] 30.2 pg 27.0-32.0 [facility] Mean corpuscular hemoglobin concentration (MCHC) determinationOrdered By: Renard Burgos on 02-21-2025 MCHC (RBC) [Mass/Vol] 32.3 g/dL 32-36 [facility] Mean platelet volume determi nationOrdered By: Renard Burgos on 02-21-2025 Platelet mean volume (Bld) [Entitic vol] 11.6 fL 6.2-12.0 [facility] Platelet countOrdered By: Garrick Bhatt on 02-21-2025 Platelets (Bld) [#/Vol] 173 10*3/uL 150-450 [facility] Potassium measurement (mass/ volume)Ordered By: Renard Burgos on 02-21-2025 Potassium (Unsp spec) [Mass/Vol] 5.0 mmol/L 3.3-5.1 [facility] Comment on above: Hemolysis present, R esults could be affected. RBC Auto (Bld) [#/Vol]Ordere d By: Renard Burgos on 02-21-2025 RBC (Bld) [#/Vol] 4.51 10*6/uL Low 4.6-6.2 [facility] Screening total cholesterol/ high density lipoprotein (HDL) cholesterol ratioOrdered By: Renard Burgos on 02-21-2025 Cholesterol.total/Cecilia sterol in HDL [Mass ratio] 4.32 {ratio} [facility] Serum creatinine measurement (mass/volume)Ordered By: Renard Burgos on 02-21-2025 Creatinine [Mass/Vol] 0.63 mg/dL Low 0.70-1.20 [facility] Serum globulin measurementOr dered By: Renadr Burgos on 02-21-2025 Globulin (S) [Mass/Vol] 3.0 g/dL 2.2-4.2 [facility] Serum glucose measurement (m ass/volume)Ordered By: Renard Burgos on 02-21-2025 Glucose [Mass/Vol] 104 mg/dL High 70-99 [facility] Serum or plasma alanine kay otransferase (ALT) measurementOrdered By: Renard Burgos on 02-21-2025 ALT [Catalytic activity/Vol] 22 U/L <47 [facility] Comment on above: Hemolysis present, R esults could be affected. Serum or plasma albumin gordy urement (mass/volume)Ordered By: Renard Burgos on 02-21-2025 Albumin [Mass/Vol] 3.3 g/dL Low 3.4-4.8 [facility] Serum or plasma albumin/glob ulin mass ratioOrdered By: Renard Burgos on 02-21-2025 Albumin/Globulin [Mass ratio] 1.1 {ratio} 0.9-2.4 [facility] Serum or plasma alkaline trace sphatase measurementOrdered By: Renard Burgos on 02-21-2025 ALP [Catalytic activity/Vol] 137 U/L High 40-129 [facility] Serum or plasma calcium gordy urement (mass/volume)Ordered By: Renard Burgos on 02-21-2025 Calcium [Mass/Vol] 8.6 mg/dL 7.6-11.0 [facility] Serum or plasma cholesterol in HDL measurement (mass/volume)Ordered By: Renard Burgos on 02-21-2025 Cholesterol in HDL [Mass/Vol] 32 mg/dL Low >40 [facility] Comment on above: National Cholesterol Education Program (NCEP) guidelines:<40 mg/dL: Low HDL-cholesterol (major risk factor for CHD)>= 60 mg/dL: High HDL-cholesterol (negative risk factor for CHD)HDL-cholesterol is affected by a number of factors, e.g. smoking, exercise, hormones, sex and age. Serum or plasma cholesterol measurement (mass/volume)Ordered By: Renard Burgos on 02-21-2025 Cholesterol [Mass/Vol] 139 mg/dL <201 [facility] Comment on above: Cholesterol level, D esirable <200 mg/dLBorderline high cholesterol 200-239 mg/dLHigh cholesterol >=240 mg/dLRecommendations of the NCEP Adult Treatment Panel for the following risk-cutoff thresholds for the [place] population. Serum or plasma urea nitroge n measurement (mass/volume)Ordered By: Renard Burgos on 02-21-2025 Urea nitrogen [Mass/Vol] 19 mg/dL 4-19 [facility] Sodium levelOrdered By: Lamine Burgos on 02-21-2025 Sodium [Moles/Vol] 137 mmol/L 133-145 [facility] Total proteinOrdered By: Lyubov lizy Loretta on 02-21-2025 Protein [Mass/Vol] 6.3 g/dL 5.9-8.4 [facility] Triglycerides measurementOrd ered By: Renard Burgos on 02-21-2025 Triglyceride [Mass/Vol] 185 mg/dL <199 [facility] Comment on above: The drugs N-Acetylcy steine and Metamizole may falsely depress this assay. Normal range: <150 mg/dLBorderline High: 150-199 mg/dLHigh: 200-499 mg/dLVery High: >500 mg/dL White blood cell (WBC) count Ordered By: Renard Burgos on 02-21-2025 WBC (Bld) [#/Vol] 10.2 10*3/uL 4.4-11.0 [facility] Absolute lymphocyte countOrd ered By: Renard Burgos on 02-17-2025 Lymphocytes Auto (Unsp spec) [#/Vol] 2.31 10*3/uL 0.83-4.51 [facility] Absolute neutrophil countOrd ered By: Renard Burgos on 02-17-2025 Neutrophils (Bld) [#/Vol] 5.5 10*3/uL 2.0-7.7 [facility] Automated lymphocyte count a s percentage of total leukocytesOrdered By: Renard Burgos on 02-17-2025 Lymphocytes/100 WBC Auto (Unsp spec) 26.1 % 19-41 [facility] Basophil percentageOrdered B y: Renard Burgos on 02-17-2025 Basophils/100 WBC (Bld) 0.6 % 0-1 [facility] CBC W/Diff, Automatedon 01-30 Absolute Lymph 2.31 X10 3/uL Normal 0.83-4.51 [facility] Comment on above: Order Comment: 109.1 Performed By: #### L 100.0100 ####[facility] [address] [place], [address] Absolute Neut 5.5 X10 3/uL Normal 2.0-7.7 [facility] Comment on above: Order Comment: 109.1 Performed By: #### L 100.0100 ####[facility] [address] [place], [address] Basophils/100 WBC (Bld) 0.6 % Normal 0-1 [facility] Comment on above: Order Comment: 109.1 Performed By: #### L 100.0100 ####[facility] [address] [place], [address] Eosinophils/100 WBC (Bld) 0.9 % Normal 0-5 [facility] Comment on above: Order Comment: 109.1 Performed By: #### L 100.0100 ####[facility] [address] [place], [address] Erythrocyte distribution width (RBC) [Ratio] 13.8 % Normal 11.6-14.6 [facility] Comment on above: Order Comment: 109.1 Performed By: #### L 100.0100 ####[facility] [address] [place], [address] Hematocrit (Bld) [Volume fraction] 43.6 % Normal 40-54 [facility] Comment on above: Order Comment: 109.1 Performed By: #### L 100.0100 ####[facility] [address] [place], [address] Hemoglobin (Bld) [Mass/Vol] 14.2 g/dL Normal 13.0-16.5 [facility] Comment on above: Order Comment: 109.1 Performed By: #### L 100.0100 ####[facility] [address] [place], [address] IG% 0.300 Normal 0.0-0.9 [facility] Comment on above: Order Comment: 109.1 Result Comment: IG% - Immature Granulocytes (promyelocytes, myelocytes andmetamyelocytes) > 1% indicates that a LEFT SHIFT is Present. Performed By: #### L 100.0100 ####[facility] [address] [place], [address] Lymphocytes/100 WBC (Bld) 26.1 % Normal 19-41 [facility] Comment on above: Order Comment: 109.1 Performed By: #### L 100.0100 ####[facility] [address] [place], [address] MCH (RBC) [Entitic mass] 30.4 pg Normal 27.0-32.0 [facility] Comment on above: Order Comment: 109.1 Performed By: #### L 100.0100 ####[facility] [address] [place], [address] MCHC (RBC) [Mass/Vol] 32.6 g/dL Normal 32-36 [facility] Comment on above: Order Comment: 109.1 Performed By: #### L 100.0100 ####[facility] [address] [place], [address] MCV (RBC) [Entitic vol] 93.4 fL Normal 80-94 [facility] Comment on above: Order Comment: 109.1 Performed By: #### L 100.0100 ####[facility] [address] [place], [address] Monocytes/100 WBC (Bld) 10.4 % High 0-10 [facility] Comment on above: Order Comment: 109.1 Performed By: #### L 100.0100 ####[facility] [address] [place], [address] Neutrophils/100 WBC (Bld) 61.7 % Normal 47-70 [facility] Comment on above: Order Comment: 109.1 Performed By: #### L 100.0100 ####[facility] [address] [place], [address] Nucleated RBC (Bld) [#/Vol] 0 10*3/uL Normal 0-5 [facility] Comment on above: Order Comment: 109.1 Performed By: #### L 100.0100 ####[facility] [address] [place], [address] Platelet mean volume (Bld) [Entitic vol] 11.3 fL Normal 6.2-12.0 [facility] Comment on above: Order Comment: 109.1 Performed By: #### L 100.0100 ####[facility] [address] [place], [address] Platelets (Bld) [#/Vol] 197 10*3/uL Normal 150-450 [facility] Comment on above: Order Comment: 109.1 Performed By: #### L 100.0100 ####[facility] [address] [place], [address] RBC (Bld) [#/Vol] 4.67 10*6/uL Normal 4.6-6.2 [facility] Comment on above: Order Comment: 109.1 Performed By: #### L 100.0100 ####[facility] [address] [place], [address] RDW SD 47.2 fl High 35.1-43.9 [facility] Comment on above: Order Comment: 109.1 Performed By: #### L 100.0100 ####[facility] [address] [place], [address] WBC (Bld) [#/Vol] 8.9 10*3/uL Normal 4.4-11.0 [facility] Comment on above: Order Comment: 109.1 Performed By: #### L 100.0100 ####[facility] [address] [place], [address] Eosinophil percentageOrdered By: Renard Burgos on 02-17-2025 Eosinophils/100 WBC (Bld) 0.9 % 0-5 [facility] Erythrocyte distribution wid th ratioOrdered By: Renard Burgos on 02-17-2025 Erythrocyte distribution width (RBC) [Ratio] 13.8 % 11.6-14.6 [facility] Erythrocyte distribution wid th standard deviationOrdered By: Renard Burgos on 02-17-2025 Erythrocyte distribution width (RBC) [Ratio] 47.2 fl High 35.1-43.9 [facility] Hematocrit Auto (Bld) [Volum e fraction]Ordered By: Renard Burgos on 02-17-2025 Hematocrit (Bld) [Volume fraction] 43.6 % 40-54 [facility] Hemoglobin measurementOrdere d By: Renard Burgos on 02-17-2025 Hemoglobin (Bld) [Mass/Vol] 14.2 g/dL 13.0-16.5 [facility] Immature granulocytes/100 WB C Auto (Bld)Ordered By: Renard Burgos on 02-17-2025 Immature granulocytes/100 WBC (Bld) 0.300 % 0.0-0.9 [facility] Comment on above: IG% - Immature Granu locytes (promyelocytes, myelocytes and metamyelocytes) > 1% indicates that a LEFT SHIFT is Present. MCV (mean corpuscular volume ) determinationOrdered By: Renard Burgos on 02-17-2025 MCV (RBC) [Entitic vol] 93.4 fL 80-94 [facility] Mean corpuscular hemoglobin (MCH) determinationOrdered By: Renard Burgos on 02-17-2025 MCH (RBC) [Entitic mass] 30.4 pg 27.0-32.0 [facility] Mean corpuscular hemoglobin concentration (MCHC) determinationOrdered By: Renard Burgos on 02-17-2025 MCHC (RBC) [Mass/Vol] 32.6 g/dL 32-36 [facility] Mean platelet volume determi nationOrdered By: Renard Burgos on 02-17-2025 Platelet mean volume (Bld) [Entitic vol] 11.3 fL 6.2-12.0 [facility] Monocyte percentageOrdered B y: Renard Burgos on 02-17-2025 Monocytes/100 WBC (Bld) 10.4 % High 0-10 [facility] Neutrophil percentageOrdered By: Renard Burgos on 02-17-2025 Neutrophils/100 WBC (Bld) 61.7 % 47-70 [facility] Nucleated red blood cell per centageOrdered By: Renard Burgos on 02-17-2025 Nucleated RBC/100 WBC (Bld) [Ratio] 0 % 0-5 [facility] Platelet countOrdered By: Garrick Bhatt on 02-17-2025 Platelets (Bld) [#/Vol] 197 10*3/uL 150-450 [facility] RBC Auto (Bld) [#/Vol]Ordere d By: Renard Burgos on 02-17-2025 RBC (Bld) [#/Vol] 4.67 10*6/uL 4.6-6.2 [facility] White blood cell (WBC) count Ordered By: Renard Burgos on 02-17-2025 WBC (Bld) [#/Vol] 8.9 10*3/uL 4.4-11.0 [facility] Absolute lymphocyte countOrd ered By: Renard Burgos on 02-10-2025 Lymphocytes Auto (Unsp spec) [#/Vol] 2.53 10*3/uL 0.83-4.51 [facility] Absolute neutrophil countOrd ered By: Renard Burgos on 02-10-2025 Neutrophils (Bld) [#/Vol] 5.5 10*3/uL 2.0-7.7 [facility] Automated lymphocyte count a s percentage of total leukocytesOrdered By: Renard Burgos on 02-10-2025 Lymphocytes/100 WBC Auto (Unsp spec) 28.0 % 19-41 [facility] Basophil percentageOrdered B y: Renard Burgos on 02-10-2025 Basophils/100 WBC (Bld) 0.7 % 0-1 [facility] CBC W/Diff, Automatedon 10- Absolute Lymph 2.53 X10 3/uL Normal 0.83-4.51 [facility] Comment on above: Order Comment: 109 Performed By: #### L 100.0100 ####[facility] [address] [place], [address] Absolute Neut 5.5 X10 3/uL Normal 2.0-7.7 [facility] Comment on above: Order Comment: 109 Performed By: #### L 100.0100 ####[facility] [address] [place], [address] Basophils/100 WBC (Bld) 0.7 % Normal 0-1 [facility] Comment on above: Order Comment: 109 Performed By: #### L 100.0100 ####[facility] [address] [place], [address] Eosinophils/100 WBC (Bld) 0.8 % Normal 0-5 [facility] Comment on above: Order Comment: 109 Performed By: #### L 100.0100 ####[facility] [address] [place], [address] Erythrocyte distribution width (RBC) [Ratio] 13.6 % Normal 11.6-14.6 [facility] Comment on above: Order Comment: 109 Performed By: #### L 100.0100 ####[facility] [address] [place], [address] Hematocrit (Bld) [Volume fraction] 43.9 % Normal 40-54 [facility] Comment on above: Order Comment: 109 Performed By: #### L 100.0100 ####[facility] [address] [place], [address] Hemoglobin (Bld) [Mass/Vol] 14.2 g/dL Normal 13.0-16.5 [facility] Comment on above: Order Comment: 109 Performed By: #### L 100.0100 ####[facility] [address] [place], [address] IG% 0.300 Normal 0.0-0.9 [facility] Comment on above: Order Comment: 109 Result Comment: IG% - Immature Granulocytes (promyelocytes, myelocytes andmetamyelocytes) > 1% indicates that a LEFT SHIFT is Present. Performed By: #### L 100.0100 ####[facility] [address] [place], [address] Lymphocytes/100 WBC (Bld) 28.0 % Normal 19-41 [facility] Comment on above: Order Comment: 109 Performed By: #### L 100.0100 ####[facility] [address] [place], [address] MCH (RBC) [Entitic mass] 29.6 pg Normal 27.0-32.0 [facility] Comment on above: Order Comment: 109 Performed By: #### L 100.0100 ####[facility] [address] [place], [address] MCHC (RBC) [Mass/Vol] 32.3 g/dL Normal 32-36 [facility] Comment on above: Order Comment: 109 Performed By: #### L 100.0100 ####[facility] [address] [place], [address] MCV (RBC) [Entitic vol] 91.6 fL Normal 80-94 [facility] Comment on above: Order Comment: 109 Performed By: #### L 100.0100 ####[facility] [address] [place], [address] Monocytes/100 WBC (Bld) 8.9 % Normal 0-10 [facility] Comment on above: Order Comment: 109 Performed By: #### L 100.0100 ####[facility] [address] [place], [address] Neutrophils/100 WBC (Bld) 61.3 % Normal 47-70 [facility] Comment on above: Order Comment: 109 Performed By: #### L 100.0100 ####[facility] [address] [place], [address] Nucleated RBC (Bld) [#/Vol] 0 10*3/uL Normal 0-5 [facility] Comment on above: Order Comment: 109 Performed By: #### L 100.0100 ####[facility] [address] [place], [address] Platelet mean volume (Bld) [Entitic vol] 11.3 fL Normal 6.2-12.0 [facility] Comment on above: Order Comment: 109 Performed By: #### L 100.0100 ####[facility] [address] [place], [address] Platelets (Bld) [#/Vol] 217 10*3/uL Normal 150-450 [facility] Comment on above: Order Comment: 109 Performed By: #### L 100.0100 ####[facility] [address] [place], [address] RBC (Bld) [#/Vol] 4.79 10*6/uL Normal 4.6-6.2 [facility] Comment on above: Order Comment: 109 Performed By: #### L 100.0100 ####[facility] [address] [place], [address] RDW SD 45.8 fl High 35.1-43.9 [facility] Comment on above: Order Comment: 109 Performed By: #### L 100.0100 ####[facility] [address] [place], [address] WBC (Bld) [#/Vol] 9.0 10*3/uL Normal 4.4-11.0 [facility] Comment on above: Order Comment: 109 Performed By: #### L 100.0100 ####[facility] [address] [place], [address] Eosinophil percentageOrdered By: Renard Burgos on 02-10-2025 Eosinophils/100 WBC (Bld) 0.8 % 0-5 [facility] Erythrocyte distribution wid th ratioOrdered By: Renard Burgos on 02-10-2025 Erythrocyte distribution width (RBC) [Ratio] 13.6 % 11.6-14.6 [facility] Erythrocyte distribution wid th standard deviationOrdered By: Renard Burgos on 02-10-2025 Erythrocyte distribution width (RBC) [Ratio] 45.8 fl High 35.1-43.9 [facility] Hematocrit Auto (Bld) [Volum e fraction]Ordered By: Renard Burgos on 02-10-2025 Hematocrit (Bld) [Volume fraction] 43.9 % 40-54 [facility] Hemoglobin measurementOrdere d By: Renard Burgos on 02-10-2025 Hemoglobin (Bld) [Mass/Vol] 14.2 g/dL 13.0-16.5 [facility] Immature granulocytes/100 WB C Auto (Bld)Ordered By: Renard Burgos on 02-10-2025 Immature granulocytes/100 WBC (Bld) 0.300 % 0.0-0.9 [facility] Comment on above: IG% - Immature Granu locytes (promyelocytes, myelocytes and metamyelocytes) > 1% indicates that a LEFT SHIFT is Present. MCV (mean corpuscular volume ) determinationOrdered By: Renard Burgos on 02-10-2025 MCV (RBC) [Entitic vol] 91.6 fL 80-94 [facility] Mean corpuscular hemoglobin (MCH) determinationOrdered By: Renard Burgos on 02-10-2025 MCH (RBC) [Entitic mass] 29.6 pg 27.0-32.0 [facility] Mean corpuscular hemoglobin concentration (MCHC) determinationOrdered By: Renard Burgos on 02-10-2025 MCHC (RBC) [Mass/Vol] 32.3 g/dL 32-36 [facility] Mean platelet volume determi nationOrdered By: Renard Burgos on 02-10-2025 Platelet mean volume (Bld) [Entitic vol] 11.3 fL 6.2-12.0 [facility] Monocyte percentageOrdered B y: Renard Burgos on 02-10-2025 Monocytes/100 WBC (Bld) 8.9 % 0-10 [facility] Neutrophil percentageOrdered By: Renard Burgos on 02-10-2025 Neutrophils/100 WBC (Bld) 61.3 % 47-70 [facility] Nucleated red blood cell per centageOrdered By: Renard Burgos on 02-10-2025 Nucleated RBC/100 WBC (Bld) [Ratio] 0 % 0-5 [facility] Platelet countOrdered By: Garrick Bhatt on 02-10-2025 Platelets (Bld) [#/Vol] 217 10*3/uL 150-450 [facility] RBC Auto (Bld) [#/Vol]Ordere d By: Renard Burgos on 02-10-2025 RBC (Bld) [#/Vol] 4.79 10*6/uL 4.6-6.2 [facility] White blood cell (WBC) count Ordered By: Renard Burgos on 02-10-2025 WBC (Bld) [#/Vol] 9.0 10*3/uL 4.4-11.0 [facility] Absolute lymphocyte countOrd ered By: Renard Burgos on 02-03-2025 Lymphocytes Auto (Unsp spec) [#/Vol] 2.12 10*3/uL 0.83-4.51 [facility] Absolute neutrophil countOrd ered By: Renard Burgos on 02-03-2025 Neutrophils (Bld) [#/Vol] 6.0 10*3/uL 2.0-7.7 [facility] Automated lymphocyte count a s percentage of total leukocytesOrdered By: Renard Burgos on 02-03-2025 Lymphocytes/100 WBC Auto (Unsp spec) 22.9 % 19-41 [facility] Basophil percentageOrdered B y: Renard Burgos on 02-03-2025 Basophils/100 WBC (Bld) 0.5 % 0-1 [facility] CBC W/Diff, Automatedon Absolute Lymph 2.12 X10 3/uL Normal 0.83-4.51 [facility] Comment on above: Order Comment: 109.1 Performed By: #### L 100.0100 ####[facility] [address] [place], [address] Absolute Neut 6.0 X10 3/uL Normal 2.0-7.7 [facility] Comment on above: Order Comment: 109.1 Performed By: #### L 100.0100 ####[facility] [address] [place], [address] Basophils/100 WBC (Bld) 0.5 % Normal 0-1 [facility] Comment on above: Order Comment: 109.1 Performed By: #### L 100.0100 ####[facility] [address] [place], [address] Eosinophils/100 WBC (Bld) 0.8 % Normal 0-5 [facility] Comment on above: Order Comment: 109.1 Performed By: #### L 100.0100 ####[facility] [address] [place], [address] Erythrocyte distribution width (RBC) [Ratio] 13.2 % Normal 11.6-14.6 [facility] Comment on above: Order Comment: 109.1 Performed By: #### L 100.0100 ####[facility] [address] [place], [address] Hematocrit (Bld) [Volume fraction] 40.1 % Normal 40-54 [facility] Comment on above: Order Comment: 109.1 Performed By: #### L 100.0100 ####[facility] [address] [place], [address] Hemoglobin (Bld) [Mass/Vol] 13.4 g/dL Normal 13.0-16.5 [facility] Comment on above: Order Comment: 109.1 Performed By: #### L 100.0100 ####[facility] [address] [place], [address] IG% 0.400 Normal 0.0-0.9 [facility] Comment on above: Order Comment: 109.1 Result Comment: IG% - Immature Granulocytes (promyelocytes, myelocytes andmetamyelocytes) > 1% indicates that a LEFT SHIFT is Present. Performed By: #### L 100.0100 ####[facility] [address] [place], [address] Lymphocytes/100 WBC (Bld) 22.9 % Normal 19-41 [facility] Comment on above: Order Comment: 109.1 Performed By: #### L 100.0100 ####[facility] [address] [place], [address] MCH (RBC) [Entitic mass] 29.9 pg Normal 27.0-32.0 [facility] Comment on above: Order Comment: 109.1 Performed By: #### L 100.0100 ####[facility] [address] [place], [address] MCHC (RBC) [Mass/Vol] 33.4 g/dL Normal 32-36 [facility] Comment on above: Order Comment: 109.1 Performed By: #### L 100.0100 ####[facility] [address] [place], [address] MCV (RBC) [Entitic vol] 89.5 fL Normal 80-94 [facility] Comment on above: Order Comment: 109.1 Performed By: #### L 100.0100 ####[facility] [address] [place], [address] Monocytes/100 WBC (Bld) 10.8 % High 0-10 [facility] Comment on above: Order Comment: 109.1 Performed By: #### L 100.0100 ####[facility] [address] [place], [address] Neutrophils/100 WBC (Bld) 64.6 % Normal 47-70 [facility] Comment on above: Order Comment: 109.1 Performed By: #### L 100.0100 ####[facility] [address] [place], [address] Nucleated RBC (Bld) [#/Vol] 0 10*3/uL Normal 0-5 [facility] Comment on above: Order Comment: 109.1 Performed By: #### L 100.0100 ####[facility] [address] [place], [address] Platelet mean volume (Bld) [Entitic vol] 11.0 fL Normal 6.2-12.0 [facility] Comment on above: Order Comment: 109.1 Performed By: #### L 100.0100 ####[facility] [address] [place], [address] Platelets (Bld) [#/Vol] 243 10*3/uL Normal 150-450 [facility] Comment on above: Order Comment: 109.1 Performed By: #### L 100.0100 ####[facility] [address] [place], [address] RBC (Bld) [#/Vol] 4.48 10*6/uL Low 4.6-6.2 [facility] Comment on above: Order Comment: 109.1 Performed By: #### L 100.0100 ####[facility] [address] [place], [address] RDW SD 43.0 fl Normal 35.1-43.9 [facility] Comment on above: Order Comment: 109.1 Performed By: #### L 100.0100 ####[facility] [address] [place], [address] WBC (Bld) [#/Vol] 9.3 10*3/uL Normal 4.4-11.0 [facility] Comment on above: Order Comment: 109.1 Performed By: #### L 100.0100 ####[facility] [address] [place], [address] Eosinophil percentageOrdered By: Renard Burgos on 02-03-2025 Eosinophils/100 WBC (Bld) 0.8 % 0-5 [facility] Erythrocyte distribution wid th ratioOrdered By: Renard Burgos on 02-03-2025 Erythrocyte distribution width (RBC) [Ratio] 13.2 % 11.6-14.6 [facility] Erythrocyte distribution wid th standard deviationOrdered By: Renard Burgos on 02-03-2025 Erythrocyte distribution width (RBC) [Ratio] 43.0 fl 35.1-43.9 [facility] Hematocrit Auto (Bld) [Volum e fraction]Ordered By: Renard Burgos on 02-03-2025 Hematocrit (Bld) [Volume fraction] 40.1 % 40-54 [facility] Hemoglobin measurementOrdere d By: Renard Burgos on 02-03-2025 Hemoglobin (Bld) [Mass/Vol] 13.4 g/dL 13.0-16.5 [facility] Immature granulocytes/100 WB C Auto (Bld)Ordered By: Renard Burgos on 02-03-2025 Immature granulocytes/100 WBC (Bld) 0.400 % 0.0-0.9 [facility] Comment on above: IG% - Immature Granu locytes (promyelocytes, myelocytes and metamyelocytes) > 1% indicates that a LEFT SHIFT is Present. MCV (mean corpuscular volume ) determinationOrdered By: Renard Burgos on 02-03-2025 MCV (RBC) [Entitic vol] 89.5 fL 80-94 [facility] Mean corpuscular hemoglobin (MCH) determinationOrdered By: Renard Burgos on 02-03-2025 MCH (RBC) [Entitic mass] 29.9 pg 27.0-32.0 [facility] Mean corpuscular hemoglobin concentration (MCHC) determinationOrdered By: Renard Burgos on 02-03-2025 MCHC (RBC) [Mass/Vol] 33.4 g/dL 32-36 [facility] Mean platelet volume determi nationOrdered By: Renard Burgos on 02-03-2025 Platelet mean volume (Bld) [Entitic vol] 11.0 fL 6.2-12.0 [facility] Monocyte percentageOrdered B y: Renard Burgos on 02-03-2025 Monocytes/100 WBC (Bld) 10.8 % High 0-10 [facility] Neutrophil percentageOrdered By: Renard Burgos on 02-03-2025 Neutrophils/100 WBC (Bld) 64.6 % 47-70 [facility] Nucleated red blood cell per centageOrdered By: Renard Burgos on 02-03-2025 Nucleated RBC/100 WBC (Bld) [Ratio] 0 % 0-5 [facility] Platelet countOrdered By: Garrick Bhatt on 02-03-2025 Platelets (Bld) [#/Vol] 243 10*3/uL 150-450 [facility] RBC Auto (Bld) [#/Vol]Ordere d By: Renard Burgos on 02-03-2025 RBC (Bld) [#/Vol] 4.48 10*6/uL Low 4.6-6.2 [facility] White blood cell (WBC) count Ordered By: Renard Burgos on 02-03-2025 WBC (Bld) [#/Vol] 9.3 10*3/uL 4.4-11.0 [facility] Absolute lymphocyte countOrd ered By: Renard Burgos on 01-27-2025 Lymphocytes Auto (Unsp spec) [#/Vol] 2.19 10*3/uL 0.83-4.51 [facility] Absolute neutrophil countOrd ered By: Renard Burgos on 01-27-2025 Neutrophils (Bld) [#/Vol] 6.3 10*3/uL 2.0-7.7 [facility] Automated lymphocyte count a s percentage of total leukocytesOrdered By: Renrad Burgos on 01-27-2025 Lymphocytes/100 WBC Auto (Unsp spec) 23.7 % 19-41 [facility] Basophil percentageOrdered B y: Renard Burgos on 01-27-2025 Basophils/100 WBC (Bld) 0.3 % 0-1 [facility] CBC W/Diff, Automatedon 12-31 Absolute Lymph 2.19 X10 3/uL Normal 0.83-4.51 [facility] Comment on above: Order Comment: 109.1 Performed By: #### L 100.0100 ####[facility] [address] [place], [address] Absolute Neut 6.3 X10 3/uL Normal 2.0-7.7 [facility] Comment on above: Order Comment: 109.1 Performed By: #### L 100.0100 ####[facility] [address] [place], [address] Basophils/100 WBC (Bld) 0.3 % Normal 0-1 [facility] Comment on above: Order Comment: 109.1 Performed By: #### L 100.0100 ####[facility] [address] [place], [address] Eosinophils/100 WBC (Bld) 0.6 % Normal 0-5 [facility] Comment on above: Order Comment: 109.1 Performed By: #### L 100.0100 ####[facility] [address] [place], [address] Erythrocyte distribution width (RBC) [Ratio] 13.3 % Normal 11.6-14.6 [facility] Comment on above: Order Comment: 109.1 Performed By: #### L 100.0100 ####[facility] [address] [place], [address] Hematocrit (Bld) [Volume fraction] 38.2 % Low 40-54 [facility] Comment on above: Order Comment: 109.1 Performed By: #### L 100.0100 ####[facility] [address] [place], [address] Hemoglobin (Bld) [Mass/Vol] 12.9 g/dL Low 13.0-16.5 [facility] Comment on above: Order Comment: 109.1 Performed By: #### L 100.0100 ####[facility] [address] [place], [address] IG% 0.400 Normal 0.0-0.9 [facility] Comment on above: Order Comment: 109.1 Result Comment: IG% - Immature Granulocytes (promyelocytes, myelocytes andmetamyelocytes) > 1% indicates that a LEFT SHIFT is Present. Performed By: #### L 100.0100 ####[facility] [address] [place], [address] Lymphocytes/100 WBC (Bld) 23.7 % Normal 19-41 [facility] Comment on above: Order Comment: 109.1 Performed By: #### L 100.0100 ####[facility] [address] [place], [address] MCH (RBC) [Entitic mass] 30.2 pg Normal 27.0-32.0 [facility] Comment on above: Order Comment: 109.1 Performed By: #### L 100.0100 ####[facility] [address] [place], [address] MCHC (RBC) [Mass/Vol] 33.8 g/dL Normal 32-36 [facility] Comment on above: Order Comment: 109.1 Performed By: #### L 100.0100 ####[facility] [address] [place], [address] MCV (RBC) [Entitic vol] 89.5 fL Normal 80-94 [facility] Comment on above: Order Comment: 109.1 Performed By: #### L 100.0100 ####[facility] [address] [place], [address] Monocytes/100 WBC (Bld) 6.8 % Normal 0-10 [facility] Comment on above: Order Comment: 109.1 Performed By: #### L 100.0100 ####[facility] [address] [place], [address] Neutrophils/100 WBC (Bld) 68.2 % Normal 47-70 [facility] Comment on above: Order Comment: 109.1 Performed By: #### L 100.0100 ####[facility] [address] [place], [address] Nucleated RBC (Bld) [#/Vol] 0 10*3/uL Normal 0-5 [facility] Comment on above: Order Comment: 109.1 Performed By: #### L 100.0100 ####[facility] [address] [place], [address] Platelet mean volume (Bld) [Entitic vol] 10.6 fL Normal 6.2-12.0 [facility] Comment on above: Order Comment: 109.1 Performed By: #### L 100.0100 ####[facility] [address] [place], [address] Platelets (Bld) [#/Vol] 247 10*3/uL Normal 150-450 [facility] Comment on above: Order Comment: 109.1 Performed By: #### L 100.0100 ####[facility] [address] [place], [address] RBC (Bld) [#/Vol] 4.27 10*6/uL Low 4.6-6.2 [facility] Comment on above: Order Comment: 109.1 Performed By: #### L 100.0100 ####[facility] [address] [place], [address] RDW SD 43.2 fl Normal 35.1-43.9 [facility] Comment on above: Order Comment: 109.1 Performed By: #### L 100.0100 ####[facility] [address] [place], [address] WBC (Bld) [#/Vol] 9.3 10*3/uL Normal 4.4-11.0 [facility] Comment on above: Order Comment: 109.1 Performed By: #### L 100.0100 ####[facility] [address] [place], [address] Eosinophil percentageOrdered By: Renard Burgos on 01-27-2025 Eosinophils/100 WBC (Bld) 0.6 % 0-5 [facility] Erythrocyte distribution wid th ratioOrdered By: Renard Burgos on 01-27-2025 Erythrocyte distribution width (RBC) [Ratio] 13.3 % 11.6-14.6 [facility] Erythrocyte distribution wid th standard deviationOrdered By: Renard Burgos on 01-27-2025 Erythrocyte distribution width (RBC) [Ratio] 43.2 fl 35.1-43.9 [facility] Hematocrit Auto (Bld) [Volum e fraction]Ordered By: Renard Burgos on 01-27-2025 Hematocrit (Bld) [Volume fraction] 38.2 % Low 40-54 [facility] Hemoglobin measurementOrdere d By: Renard Burgos on 01-27-2025 Hemoglobin (Bld) [Mass/Vol] 12.9 g/dL Low 13.0-16.5 [facility] Immature granulocytes/100 WB C Auto (Bld)Ordered By: Renard Burgos on 01-27-2025 Immature granulocytes/100 WBC (Bld) 0.400 % 0.0-0.9 [facility] Comment on above: IG% - Immature Granu locytes (promyelocytes, myelocytes and metamyelocytes) > 1% indicates that a LEFT SHIFT is Present. MCV (mean corpuscular volume ) determinationOrdered By: Renard Burgos on 01-27-2025 MCV (RBC) [Entitic vol] 89.5 fL 80-94 [facility] Mean corpuscular hemoglobin (MCH) determinationOrdered By: Renard Burgos on 01-27-2025 MCH (RBC) [Entitic mass] 30.2 pg 27.0-32.0 [facility] Mean corpuscular hemoglobin concentration (MCHC) determinationOrdered By: Renard Burgos on 01-27-2025 MCHC (RBC) [Mass/Vol] 33.8 g/dL 32-36 [facility] Mean platelet volume determi nationOrdered By: Renard Burgos on 01-27-2025 Platelet mean volume (Bld) [Entitic vol] 10.6 fL 6.2-12.0 [facility] Monocyte percentageOrdered B y: Renard Burgos on 01-27-2025 Monocytes/100 WBC (Bld) 6.8 % 0-10 [facility] Neutrophil percentageOrdered By: Renard Burgos on 01-27-2025 Neutrophils/100 WBC (Bld) 68.2 % 47-70 [facility] Nucleated red blood cell per centageOrdered By: Renard Burgos on 01-27-2025 Nucleated RBC/100 WBC (Bld) [Ratio] 0 % 0-5 [facility] Platelet countOrdered By: Garrick Bhatt on 01-27-2025 Platelets (Bld) [#/Vol] 247 10*3/uL 150-450 [facility] RBC Auto (Bld) [#/Vol]Ordere d By: Renard Burgos on 01-27-2025 RBC (Bld) [#/Vol] 4.27 10*6/uL Low 4.6-6.2 [facility] White blood cell (WBC) count Ordered By: Renard Burgos on 01-27-2025 WBC (Bld) [#/Vol] 9.3 10*3/uL 4.4-11.0 [facility] Absolute lymphocyte countOrd ered By: Renard Burgos on 01-20-2025 Lymphocytes Auto (Unsp spec) [#/Vol] 2.11 10*3/uL 0.83-4.51 [facility] Absolute neutrophil countOrd ered By: Renard Burgos on 01-20-2025 Neutrophils (Bld) [#/Vol] 4.5 10*3/uL 2.0-7.7 [facility] Automated lymphocyte count a s percentage of total leukocytesOrdered By: Renard Burgos on 01-20-2025 Lymphocytes/100 WBC Auto (Unsp spec) 27.9 % 19-41 [facility] Basophil percentageOrdered B y: Renard Burgos on 01-20-2025 Basophils/100 WBC (Bld) 0.5 % 0-1 [facility] CBC W/Diff, Automatedon 12-31 Absolute Lymph 2.11 X10 3/uL Normal 0.83-4.51 [facility] Comment on above: Order Comment: 109.1 Performed By: #### L 100.0100 ####[facility] [address] [place], [address] Absolute Neut 4.5 X10 3/uL Normal 2.0-7.7 [facility] Comment on above: Order Comment: 109.1 Performed By: #### L 100.0100 ####[facility] [address] [place], [address] Basophils/100 WBC (Bld) 0.5 % Normal 0-1 [facility] Comment on above: Order Comment: 109.1 Performed By: #### L 100.0100 ####[facility] [address] [place], [address] Eosinophils/100 WBC (Bld) 1.1 % Normal 0-5 [facility] Comment on above: Order Comment: 109.1 Performed By: #### L 100.0100 ####[facility] [address] [place], [address] Erythrocyte distribution width (RBC) [Ratio] 13.1 % Normal 11.6-14.6 [facility] Comment on above: Order Comment: 109.1 Performed By: #### L 100.0100 ####[facility] [address] [place], [address] Hematocrit (Bld) [Volume fraction] 36.3 % Low 40-54 [facility] Comment on above: Order Comment: 109.1 Performed By: #### L 100.0100 ####[facility] [address] [place], [address] Hemoglobin (Bld) [Mass/Vol] 11.6 g/dL Low 13.0-16.5 [facility] Comment on above: Order Comment: 109.1 Performed By: #### L 100.0100 ####[facility] [address] [place], [address] IG% 0.700 Normal 0.0-0.9 [facility] Comment on above: Order Comment: 109.1 Result Comment: IG% - Immature Granulocytes (promyelocytes, myelocytes andmetamyelocytes) > 1% indicates that a LEFT SHIFT is Present. Performed By: #### L 100.0100 ####[facility] [address] [place], [address] Lymphocytes/100 WBC (Bld) 27.9 % Normal 19-41 [facility] Comment on above: Order Comment: 109.1 Performed By: #### L 100.0100 ####[facility] [address] [place], [address] MCH (RBC) [Entitic mass] 29.6 pg Normal 27.0-32.0 [facility] Comment on above: Order Comment: 109.1 Performed By: #### L 100.0100 ####[facility] [address] [place], [address] MCHC (RBC) [Mass/Vol] 32.0 g/dL Normal 32-36 [facility] Comment on above: Order Comment: 109.1 Performed By: #### L 100.0100 ####[facility] [address] [place], [address] MCV (RBC) [Entitic vol] 92.6 fL Normal 80-94 [facility] Comment on above: Order Comment: 109.1 Performed By: #### L 100.0100 ####[facility] [address] [place], [address] Monocytes/100 WBC (Bld) 10.1 % High 0-10 [facility] Comment on above: Order Comment: 109.1 Performed By: #### L 100.0100 ####[facility] [address] [place], [address] Neutrophils/100 WBC (Bld) 59.7 % Normal 47-70 [facility] Comment on above: Order Comment: 109.1 Performed By: #### L 100.0100 ####[facility] [address] [place], [address] Nucleated RBC (Bld) [#/Vol] 0 10*3/uL Normal 0-5 [facility] Comment on above: Order Comment: 109.1 Performed By: #### L 100.0100 ####[facility] [address] [place], [address] Platelet mean volume (Bld) [Entitic vol] 10.6 fL Normal 6.2-12.0 [facility] Comment on above: Order Comment: 109.1 Performed By: #### L 100.0100 ####[facility] [address] [place], [address] Platelets (Bld) [#/Vol] 248 10*3/uL Normal 150-450 [facility] Comment on above: Order Comment: 109.1 Performed By: #### L 100.0100 ####[facility] [address] [place], [address] RBC (Bld) [#/Vol] 3.92 10*6/uL Low 4.6-6.2 [facility] Comment on above: Order Comment: 109.1 Performed By: #### L 100.0100 ####[facility] [address] [place], [address] RDW SD 44.6 fl High 35.1-43.9 [facility] Comment on above: Order Comment: 109.1 Performed By: #### L 100.0100 ####[facility] [address] [place], [address] WBC (Bld) [#/Vol] 7.6 10*3/uL Normal 4.4-11.0 [facility] Comment on above: Order Comment: 109.1 Performed By: #### L 100.0100 ####[facility] [address] [place], [address] Eosinophil percentageOrdered By: Renard Burgos on 01-20-2025 Eosinophils/100 WBC (Bld) 1.1 % 0-5 [facility] Erythrocyte distribution wid th ratioOrdered By: Renard Burgos on 01-20-2025 Erythrocyte distribution width (RBC) [Ratio] 13.1 % 11.6-14.6 [facility] Erythrocyte distribution wid th standard deviationOrdered By: Renard Burgos on 01-20-2025 Erythrocyte distribution width (RBC) [Ratio] 44.6 fl High 35.1-43.9 [facility] Hematocrit Auto (Bld) [Volum e fraction]Ordered By: Renard Burgos on 01-20-2025 Hematocrit (Bld) [Volume fraction] 36.3 % Low 40-54 [facility] Hemoglobin measurementOrdere d By: Renard Burgos on 01-20-2025 Hemoglobin (Bld) [Mass/Vol] 11.6 g/dL Low 13.0-16.5 [facility] Immature granulocytes/100 WB C Auto (Bld)Ordered By: Renard Burgos on 01-20-2025 Immature granulocytes/100 WBC (Bld) 0.700 % 0.0-0.9 [facility] Comment on above: IG% - Immature Granu locytes (promyelocytes, myelocytes and metamyelocytes) > 1% indicates that a LEFT SHIFT is Present. MCV (mean corpuscular volume ) determinationOrdered By: Renard Burgos on 01-20-2025 MCV (RBC) [Entitic vol] 92.6 fL 80-94 [facility] Mean corpuscular hemoglobin (MCH) determinationOrdered By: Renard Burgos on 01-20-2025 MCH (RBC) [Entitic mass] 29.6 pg 27.0-32.0 [facility] Mean corpuscular hemoglobin concentration (MCHC) determinationOrdered By: Renard Burgos on 01-20-2025 MCHC (RBC) [Mass/Vol] 32.0 g/dL 32-36 [facility] Mean platelet volume determi nationOrdered By: Renard Burgos on 01-20-2025 Platelet mean volume (Bld) [Entitic vol] 10.6 fL 6.2-12.0 [facility] Monocyte percentageOrdered B y: Renard Burgos on 01-20-2025 Monocytes/100 WBC (Bld) 10.1 % High 0-10 [facility] Neutrophil percentageOrdered By: Renard Burgos on 01-20-2025 Neutrophils/100 WBC (Bld) 59.7 % 47-70 [facility] Nucleated red blood cell per centageOrdered By: Renard Burgos on 01-20-2025 Nucleated RBC/100 WBC (Bld) [Ratio] 0 % 0-5 [facility] Platelet countOrdered By: Garrick Bhatt on 01-20-2025 Platelets (Bld) [#/Vol] 248 10*3/uL 150-450 [facility] RBC Auto (Bld) [#/Vol]Ordere d By: Renard uBrgos on 01-20-2025 RBC (Bld) [#/Vol] 3.92 10*6/uL Low 4.6-6.2 [facility] White blood cell (WBC) count Ordered By: Renard Burgos on 01-20-2025 WBC (Bld) [#/Vol] 7.6 10*3/uL 4.4-11.0 [facility] Absolute lymphocyte countOrd ered By: Renard Burgos on 01-13-2025 Lymphocytes Auto (Unsp spec) [#/Vol] 1.91 10*3/uL 0.83-4.51 [facility] Absolute neutrophil countOrd ered By: Renard Burgos on 01-13-2025 Neutrophils (Bld) [#/Vol] 6.4 10*3/uL 2.0-7.7 [facility] Automated lymphocyte count a s percentage of total leukocytesOrdered By: Renard Burgos on 01-13-2025 Lymphocytes/100 WBC Auto (Unsp spec) 20.7 % 19-41 [facility] Basophil percentageOrdered B y: Renard Burgos on 01-13-2025 Basophils/100 WBC (Bld) 0.5 % 0-1 [facility] CBC W/Diff, Automatedon 12-30 Absolute Lymph 1.91 X10 3/uL Normal 0.83-4.51 [facility] Comment on above: Order Comment: 109-1 Performed By: #### L 100.0100 ####[facility] [address] [place], [address] Absolute Neut 6.4 X10 3/uL Normal 2.0-7.7 [facility] Comment on above: Order Comment: 109-1 Performed By: #### L 100.0100 ####[facility] [address] [place], [address] Basophils/100 WBC (Bld) 0.5 % Normal 0-1 [facility] Comment on above: Order Comment: 109-1 Performed By: #### L 100.0100 ####[facility] [address] [place], [address] Eosinophils/100 WBC (Bld) 0.8 % Normal 0-5 [facility] Comment on above: Order Comment: 109-1 Performed By: #### L 100.0100 ####[facility] [address] [place], [address] Erythrocyte distribution width (RBC) [Ratio] 13.2 % Normal 11.6-14.6 [facility] Comment on above: Order Comment: 109-1 Performed By: #### L 100.0100 ####[facility] [address] [place], [address] Hematocrit (Bld) [Volume fraction] 40.2 % Normal 40-54 [facility] Comment on above: Order Comment: 109-1 Performed By: #### L 100.0100 ####[facility] [address] [place], [address] Hemoglobin (Bld) [Mass/Vol] 13.3 g/dL Normal 13.0-16.5 [facility] Comment on above: Order Comment: 109-1 Performed By: #### L 100.0100 ####[facility] [address] [place], [address] IG% 0.300 Normal 0.0-0.9 [facility] Comment on above: Order Comment: 109-1 Result Comment: IG% - Immature Granulocytes (promyelocytes, myelocytes andmetamyelocytes) > 1% indicates that a LEFT SHIFT is Present. Performed By: #### L 100.0100 ####[facility] [address] [place], [address] Lymphocytes/100 WBC (Bld) 20.7 % Normal 19-41 [facility] Comment on above: Order Comment: 109-1 Performed By: #### L 100.0100 ####[facility] [address] [place], [address] MCH (RBC) [Entitic mass] 30.4 pg Normal 27.0-32.0 [facility] Comment on above: Order Comment: 109-1 Performed By: #### L 100.0100 ####[facility] [address] [place], [address] MCHC (RBC) [Mass/Vol] 33.1 g/dL Normal 32-36 [facility] Comment on above: Order Comment: 109-1 Performed By: #### L 100.0100 ####[facility] [address] [place], [address] MCV (RBC) [Entitic vol] 92.0 fL Normal 80-94 [facility] Comment on above: Order Comment: 109-1 Performed By: #### L 100.0100 ####[facility] [address] [place], [address] Monocytes/100 WBC (Bld) 8.1 % Normal 0-10 [facility] Comment on above: Order Comment: 109-1 Performed By: #### L 100.0100 ####[facility] [address] [place], [address] Neutrophils/100 WBC (Bld) 69.6 % Normal 47-70 [facility] Comment on above: Order Comment: 109-1 Performed By: #### L 100.0100 ####[facility] [address] [place], [address] Nucleated RBC (Bld) [#/Vol] 0 10*3/uL Normal 0-5 [facility] Comment on above: Order Comment: 109-1 Performed By: #### L 100.0100 ####[facility] [address] [place], [address] Platelet mean volume (Bld) [Entitic vol] 11.5 fL Normal 6.2-12.0 [facility] Comment on above: Order Comment: 109-1 Performed By: #### L 100.0100 ####[facility] [address] [place], [address] Platelets (Bld) [#/Vol] 198 10*3/uL Normal 150-450 [facility] Comment on above: Order Comment: 109-1 Performed By: #### L 100.0100 ####[facility] [address] [place], [address] RBC (Bld) [#/Vol] 4.37 10*6/uL Low 4.6-6.2 [facility] Comment on above: Order Comment: 109-1 Performed By: #### L 100.0100 ####[facility] [address] [place], [address] RDW SD 44.6 fl High 35.1-43.9 [facility] Comment on above: Order Comment: 109-1 Performed By: #### L 100.0100 ####[facility] [address] [place], [address] WBC (Bld) [#/Vol] 9.2 10*3/uL Normal 4.4-11.0 [facility] Comment on above: Order Comment: 109-1 Performed By: #### L 100.0100 ####[facility] [address] [place], [address] Eosinophil percentageOrdered By: Renard Burgos on 01-13-2025 Eosinophils/100 WBC (Bld) 0.8 % 0-5 [facility] Erythrocyte distribution wid th ratioOrdered By: Renard Burgos on 01-13-2025 Erythrocyte distribution width (RBC) [Ratio] 13.2 % 11.6-14.6 [facility] Erythrocyte distribution wid th standard deviationOrdered By: Renard Burgos on 01-13-2025 Erythrocyte distribution width (RBC) [Ratio] 44.6 fl High 35.1-43.9 [facility] Hematocrit Auto (Bld) [Volum e fraction]Ordered By: Renard Burgos on 01-13-2025 Hematocrit (Bld) [Volume fraction] 40.2 % 40-54 [facility] Hemoglobin measurementOrdere d By: Renard Burgos on 01-13-2025 Hemoglobin (Bld) [Mass/Vol] 13.3 g/dL 13.0-16.5 [facility] Immature granulocytes/100 WB C Auto (Bld)Ordered By: Renard Burgos on 01-13-2025 Immature granulocytes/100 WBC (Bld) 0.300 % 0.0-0.9 [facility] Comment on above: IG% - Immature Granu locytes (promyelocytes, myelocytes and metamyelocytes) > 1% indicates that a LEFT SHIFT is Present. MCV (mean corpuscular volume ) determinationOrdered By: Renard Burgos on 01-13-2025 MCV (RBC) [Entitic vol] 92.0 fL 80-94 [facility] Mean corpuscular hemoglobin (MCH) determinationOrdered By: Renard Burgos on 01-13-2025 MCH (RBC) [Entitic mass] 30.4 pg 27.0-32.0 [facility] Mean corpuscular hemoglobin concentration (MCHC) determinationOrdered By: Renard Burgos on 01-13-2025 MCHC (RBC) [Mass/Vol] 33.1 g/dL 32-36 [facility] Mean platelet volume determi nationOrdered By: Renard Burgos on 01-13-2025 Platelet mean volume (Bld) [Entitic vol] 11.5 fL 6.2-12.0 [facility] Monocyte percentageOrdered B y: Renard Burgos on 01-13-2025 Monocytes/100 WBC (Bld) 8.1 % 0-10 [facility] Neutrophil percentageOrdered By: Renard Burgos on 01-13-2025 Neutrophils/100 WBC (Bld) 69.6 % 47-70 [facility] Nucleated red blood cell per centageOrdered By: Renard Burgos on 01-13-2025 Nucleated RBC/100 WBC (Bld) [Ratio] 0 % 0-5 [facility] Platelet countOrdered By: Garrick Bhatt on 01-13-2025 Platelets (Bld) [#/Vol] 198 10*3/uL 150-450 [facility] RBC Auto (Bld) [#/Vol]Ordere d By: Renard Burgos on 01-13-2025 RBC (Bld) [#/Vol] 4.37 10*6/uL Low 4.6-6.2 [facility] White blood cell (WBC) count Ordered By: Renard Burgos on 01-13-2025 WBC (Bld) [#/Vol] 9.2 10*3/uL 4.4-11.0 [facility] Anion gap in Serum or Plasma Ordered By: Renard Burgos on 01-10-2025 Anion gap [Moles/Vol] 9 mmol/L 09-12 [facility] BUN/creatinine ratioOrdered By: Renard Burgos on 01-10-2025 Urea nitrogen/Creatinine [Mass ratio] 27.7 mg/mg High 02-17 [facility] Basic Metabolic Profile (BMP )on 01-10-2025 BUN/CRE 27.7 RATIO High 02-17 [facility] Comment on above: Order Comment: 109.1 Performed By: #### L 500.2500 ####[facility] [address] [place], [address] Calcium [Mass/Vol] 8.2 mg/dL Normal 7.6-11.0 [facility] Comment on above: Order Comment: 109.1 Performed By: #### L 500.2500 ####[facility] [address], [address] Chloride [Moles/Vol] 106 mmol/L Normal 98-108 [facility] Comment on above: Order Comment: 109.1 Performed By: #### L 500.2500 ####[facility] [address] [place], [address] CO2 [Moles/Vol] 25.6 mmol/L Normal 21.0-32.0 [facility] Comment on above: Order Comment: 109.1 Performed By: #### L 500.2500 ####[facility] [address] [place], [address] Creatinine [Mass/Vol] 0.54 mg/dL Low 0.70-1.20 [facility] Comment on above: Order Comment: 109.1 Performed By: #### L 500.2500 ####[facility] [address] [place], [address] GAP 9 Normal 5-15 [facility] Comment on above: Order Comment: 109.1 Performed By: #### L 500.2500 ####[facility] [address] [place], [address] GFR/1.73 sq M.predicted among non-blacks MDRD (S/P/Bld) [Vol rate/Area] 109 mL/min/{1.73_m2} Normal >60 [facility] Comment on above: Order Comment: 109.1 Result Comment: mL/m in/1.73m2 CKD-EPI Creatinine Equation (2020) Performed By: #### L 500.2500 ####[facility] [address], [address] Glucose [Mass/Vol] 126 mg/dL High 70-99 [facility] Comment on above: Order Comment: 109.1 Performed By: #### L 500.2500 ####[facility] [address] [place], [address] Potassium [Moles/Vol] 3.8 mmol/L Normal 3.3-5.1 [facility] Comment on above: Order Comment: 109.1 Performed By: #### L 500.2500 ####[facility] [address] [place], [address] Sodium [Moles/Vol] 140 mmol/L Normal 133-145 [facility] Comment on above: Order Comment: 109.1 Performed By: #### L 500.2500 ####[facility] [address] [place], [address] Urea nitrogen [Mass/Vol] 15 mg/dL Normal 4-19 [facility] Comment on above: Order Comment: 109.1 Performed By: #### L 500.2500 ####[facility] [address] [place], [address] Carbon dioxide, total [Moles /volume] in Central venous bloodOrdered By: Renard Burgos on 01-10-2025 CO2 [Moles/Vol] 25.6 mmol/L 21.0-32.0 [facility] Chloride assayOrdered By: Garrick Bhatt on 01-10-2025 Chloride [Moles/Vol] 106 mmol/L 98-108 [facility] Glomerular filtration rate ( GFR) estimation/1.73 sq m using serum, plasma, or whole bOrdered By: Renard Burgos on 01-10-2025 GFR/1.73 sq M.predicted among non-blacks MDRD (S/P/Bld) [Vol rate/Area] 109 mL/min/{1.73_m2} >60 [facility] Comment on above: mL/min/1.73m2 CKD-EP I Creatinine Equation (2020) Potassium measurement (mass/ volume)Ordered By: Renard Burgos on 01-10-2025 Potassium (Unsp spec) [Mass/Vol] 3.8 mmol/L 3.3-5.1 [facility] Serum creatinine measurement (mass/volume)Ordered By: Renard Burgos on 01-10-2025 Creatinine [Mass/Vol] 0.54 mg/dL Low 0.70-1.20 [facility] Serum glucose measurement (m ass/volume)Ordered By: Renard Burgos on 01-10-2025 Glucose [Mass/Vol] 126 mg/dL High 70-99 [facility] Serum or plasma calcium gordy urement (mass/volume)Ordered By: Renard Burgos on 01-10-2025 Calcium [Mass/Vol] 8.2 mg/dL 7.6-11.0 [facility] Serum or plasma urea nitroge n measurement (mass/volume)Ordered By: Renard Burgos on 01-10-2025 Urea nitrogen [Mass/Vol] 15 mg/dL 4-19 [facility] Sodium levelOrdered By: Lamine Burgos on 01-10-2025 Sodium [Moles/Vol] 140 mmol/L 133-145 [facility] Absolute lymphocyte countOrd ered By: Renard Burgos on 01-06-2025 Lymphocytes Auto (Unsp spec) [#/Vol] 2.29 10*3/uL 0.83-4.51 [facility] Absolute neutrophil countOrd ered By: Renard Burgos on 01-06-2025 Neutrophils (Bld) [#/Vol] 5.6 10*3/uL 2.0-7.7 [facility] Automated lymphocyte count a s percentage of total leukocytesOrdered By: Renard Burgos on 01-06-2025 Lymphocytes/100 WBC Auto (Unsp spec) 26.1 % 19-41 [facility] Basophil percentageOrdered B y: Renard Burgos on 01-06-2025 Basophils/100 WBC (Bld) 0.6 % 0-1 [facility] CBC W/Diff, Automatedon PLT EST ADEQUATE Normal ADEQ [facility] Comment on above: Order Comment: 109.1 Performed By: #### L 100.0100 ####[facility] [address] [place], [address] Eosinophil percentageOrdered By: Renard Burgos on 01-06-2025 Eosinophils/100 WBC (Bld) 1.1 % 0-5 [facility] Erythrocyte distribution wid th ratioOrdered By: Renard Burgos on 01-06-2025 Erythrocyte distribution width (RBC) [Ratio] 13.2 % 11.6-14.6 [facility] Erythrocyte distribution wid th standard deviationOrdered By: Renard Burgos on 01-06-2025 Erythrocyte distribution width (RBC) [Ratio] 44.2 fl High 35.1-43.9 [facility] Hematocrit Auto (Bld) [Volum e fraction]Ordered By: Renard Burgos on 01-06-2025 Hematocrit (Bld) [Volume fraction] 43.3 % 40-54 [facility] Hemoglobin measurementOrdere d By: Renard Burgos on 01-06-2025 Hemoglobin (Bld) [Mass/Vol] 14.2 g/dL 13.0-16.5 [facility] Immature granulocytes/100 WB C Auto (Bld)Ordered By: Renard Burgos on 01-06-2025 Immature granulocytes/100 WBC (Bld) 0.300 % 0.0-0.9 [facility] Comment on above: IG% - Immature Granu locytes (promyelocytes, myelocytes and metamyelocytes) > 1% indicates that a LEFT SHIFT is Present. MCV (mean corpuscular volume ) determinationOrdered By: Renard Burgos on 01-06-2025 MCV (RBC) [Entitic vol] 92.7 fL 80-94 [facility] Mean corpuscular hemoglobin (MCH) determinationOrdered By: Renard Burgos on 01-06-2025 MCH (RBC) [Entitic mass] 30.4 pg 27.0-32.0 [facility] Mean corpuscular hemoglobin concentration (MCHC) determinationOrdered By: Renard Burgos on 01-06-2025 MCHC (RBC) [Mass/Vol] 32.8 g/dL 32-36 [facility] Mean platelet volume determi nationOrdered By: Renard Burgos on 01-06-2025 Platelet mean volume (Bld) [Entitic vol] 11.5 fL 6.2-12.0 [facility] Monocyte percentageOrdered B y: Renard Burgos on 01-06-2025 Monocytes/100 WBC (Bld) 8.5 % 0-10 [facility] Neutrophil percentageOrdered By: Renard Burgos on 01-06-2025 Neutrophils/100 WBC (Bld) 63.4 % 47-70 [facility] Nucleated red blood cell per centageOrdered By: Renard Burgos on 01-06-2025 Nucleated RBC/100 WBC (Bld) [Ratio] 0 % 0-5 [facility] Platelet countOrdered By: Garrick Bhatt on 01-06-2025 Platelets (Bld) [#/Vol] 197 10*3/uL 150-450 [facility] Platelet estimateOrdered By: Renard Burgos on 01-06-2025 Platelets LM Ql (Bld) ADEQUATE ADEQ [facility] RBC Auto (Bld) [#/Vol]Ordere d By: Renard Burgos on 01-06-2025 RBC (Bld) [#/Vol] 4.67 10*6/uL 4.6-6.2 [facility] White blood cell (WBC) count Ordered By: Renard Burgos on 01-06-2025 WBC (Bld) [#/Vol] 8.8 10*3/uL 4.4-11.0 [facility] Absolute lymphocyte countOrd ered By: Renard Burgos on 12-31-2024 Lymphocytes Auto (Unsp spec) [#/Vol] 1.87 10*3/uL 0.83-4.51 [facility] Absolute neutrophil countOrd ered By: Renard Burgos on 12-31-2024 Neutrophils (Bld) [#/Vol] 5.3 10*3/uL 2.0-7.7 [facility] Automated blood erythrocyte countOrdered By: Renard Burgos on 12-31-2024 RBC (Bld) [#/Vol] 4.47 10*6/uL Low 4.6-6.2 [facility] Comment on above: Order Comment: 109.1 Performed By: #### L 100.0100 ####[facility] [address] [place], [address] Automated blood hematocrit ( percentage)Ordered By: Renard Burgos on 12-31-2024 Hematocrit (Bld) [Volume fraction] 41.3 % Normal 40-54 [facility] Comment on above: Order Comment: 109.1 Performed By: #### L 100.0100 ####[facility] [address] [place], [address] Automated lymphocyte count a s percentage of total leukocytesOrdered By: Renard Burgos on 12-31-2024 Lymphocytes/100 WBC Auto (Unsp spec) 23.4 % 19- [facility] Basophil percentageOrdered B y: Renard Burgos on 12-31-2024 Basophils/100 WBC (Bld) 0.4 % Normal 0-1 [facility] Comment on above: Order Comment: 109.1 Performed By: #### L 100.0100 ####[facility] [address] [place], [address] CBC W/Diff, Automatedon 09- Absolute Lymph 1.87 X10 3/uL Normal 0.83-4.51 [facility] Comment on above: Order Comment: 109.1 Performed By: #### L 100.0100 ####[facility] [address] [place], [address] Absolute Neut 5.3 X10 3/uL Normal 2.0-7.7 [facility] Comment on above: Order Comment: 109.1 Performed By: #### L 100.0100 ####[facility] [address] [place], [address] IG% 0.400 Normal 0.0-0.9 [facility] Comment on above: Order Comment: 109.1 Result Comment: IG% - Immature Granulocytes (promyelocytes, myelocytes andmetamyelocytes) > 1% indicates that a LEFT SHIFT is Present. Performed By: #### L 100.0100 ####[facility] [address] [place], [address] Lymphocytes/100 WBC (Bld) 23.4 % Normal 19-41 [facility] Comment on above: Order Comment: 109.1 Performed By: #### L 100.0100 ####[facility] [address] [place], [address] Nucleated RBC (Bld) [#/Vol] 0 10*3/uL Normal 0-5 [facility] Comment on above: Order Comment: 109.1 Performed By: #### L 100.0100 ####[facility] [address] [place], [address] RDW SD 43.8 fl Normal 35.1-43.9 [facility] Comment on above: Order Comment: 109.1 Performed By: #### L 100.0100 ####[facility] [address] [place], [address] Eosinophil percentageOrdered By: Renard Burgos on 12-31-2024 Eosinophils/100 WBC (Bld) 0.6 % Normal 0-5 [facility] Comment on above: Order Comment: 109.1 Performed By: #### L 100.0100 ####[facility] [address] [place], [address] Erythrocyte distribution wid th ratioOrdered By: Renard Brugos on 12-31-2024 Erythrocyte distribution width (RBC) [Ratio] 13.1 % Normal 11.6-14.6 [facility] Comment on above: Order Comment: 109.1 Performed By: #### L 100.0100 ####[facility] [address] [place], [address] Erythrocyte distribution wid th standard deviationOrdered By: Renadr Burgos on 12-31-2024 Erythrocyte distribution width (RBC) [Ratio] 43.8 fl 35.1-43.9 [facility] Hemoglobin measurementOrdere d By: Renard Burgos on 12-31-2024 Hemoglobin (Bld) [Mass/Vol] 13.4 g/dL Normal 13.0-16.5 [facility] Comment on above: Order Comment: 109.1 Performed By: #### L 100.0100 ####[facility] [address] [place], [address] Immature granulocytes/100 WB C Auto (Bld)Ordered By: Renard Burgos on 12-31-2024 Immature granulocytes/100 WBC (Bld) 0.400 % 0.0-0.9 [facility] Comment on above: IG% - Immature Granu locytes (promyelocytes, myelocytes and metamyelocytes) > 1% indicates that a LEFT SHIFT is Present. MCV (mean corpuscular volume ) determinationOrdered By: Renard Burgos on 12-31-2024 MCV (RBC) [Entitic vol] 92.4 fL Normal 80-94 [facility] Comment on above: Order Comment: 109.1 Performed By: #### L 100.0100 ####[facility] [address] [facility] [place], [place], [id number] Mean corpuscular hemoglobin (MCH) determinationOrdered By: Renard Burgos on 12-31-2024 MCH (RBC) [Entitic mass] 30.0 pg Normal 27.0-32.0 [facility] Comment on above: Order Comment: 109.1 Performed By: #### L 100.0100 ####[facility] [address] [facility] [place], [address] Mean corpuscular hemoglobin concentration (MCHC) determinationOrdered By: Renard Burgos on 12-31-2024 MCHC (RBC) [Mass/Vol] 32.4 g/dL Normal 32-36 [facility] Comment on above: Order Comment: 109.1 Performed By: #### L 100.0100 ####[facility] [address] [place], [address] Mean platelet volume determi nationOrdered By: Renard Burgos on 12-31-2024 Platelet mean volume (Bld) [Entitic vol] 10.9 fL Normal 6.2-12.0 [facility] Comment on above: Order Comment: 109.1 Performed By: #### L 100.0100 ####[facility] [address] [place], [address] Monocyte percentageOrdered B y: Renard Burgos on 12-31-2024 Monocytes/100 WBC (Bld) 9.0 % Normal 0-10 [facility] Comment on above: Order Comment: 109.1 Performed By: #### L 100.0100 ####[facility] [address] [place], [address] Neutrophil percentageOrdered By: Renard Burgos on 12-31-2024 Neutrophils/100 WBC (Bld) 66.2 % Normal 47-70 [facility] Comment on above: Order Comment: 109.1 Performed By: #### L 100.0100 ####[facility] [address] [place], [address] Nucleated red blood cell per centageOrdered By: Renard Burgos on 12-31-2024 Nucleated RBC/100 WBC (Bld) [Ratio] 0 % 0-5 [facility] Platelet countOrdered By: Garrick Bhatt on 12-31-2024 Platelets (Bld) [#/Vol] 209 10*3/uL Normal 150-450 [facility] Comment on above: Order Comment: 109.1 Performed By: #### L 100.0100 ####[facility] [address] [place], [address] White blood cell (WBC) count Ordered By: Renard Burgos on 12-31-2024 WBC (Bld) [#/Vol] 8.0 10*3/uL Normal 4.4-11.0 [facility] Comment on above: Order Comment: 109.1 Performed By: #### L 100.0100 ####[facility] [address] [place], [address] Absolute lymphocyte countOrd ered By: Renard Burgos on 12-23-2024 Lymphocytes Auto (Unsp spec) [#/Vol] 1.98 10*3/uL 0.83-4.51 [facility] Absolute neutrophil countOrd ered By: Renard Burgos on 12-23-2024 Neutrophils (Bld) [#/Vol] 4.2 10*3/uL 2.0-7.7 [facility] Automated lymphocyte count a s percentage of total leukocytesOrdered By: Renard Burgos on 12-23-2024 Lymphocytes/100 WBC Auto (Unsp spec) 28.9 % 19-41 [facility] Basophil percentageOrdered B y: Renard Hensleyrustam on 12-23-2024 Basophils/100 WBC (Bld) 0.6 % 0-1 [facility] CBC W/Diff, Automatedon 11-30 Absolute Lymph 1.98 X10 3/uL Normal 0.83-4.51 [facility] Comment on above: Order Comment: 109-1 Performed By: #### L 100.0100 ####[facility] [address] [place], [address] Absolute Neut 4.2 X10 3/uL Normal 2.0-7.7 [facility] Comment on above: Order Comment: 109-1 Performed By: #### L 100.0100 ####[facility] [address] [place], [address] Basophils/100 WBC (Bld) 0.6 % Normal 0-1 [facility] Comment on above: Order Comment: 109-1 Performed By: #### L 100.0100 ####[facility] [address] [place], [address] Eosinophils/100 WBC (Bld) 0.9 % Normal 0-5 [facility] Comment on above: Order Comment: 109-1 Performed By: #### L 100.0100 ####[facility] [address] [place], [address] Erythrocyte distribution width (RBC) [Ratio] 13.0 % Normal 11.6-14.6 [facility] Comment on above: Order Comment: 109-1 Performed By: #### L 100.0100 ####[facility] [address] [place], [address] Hematocrit (Bld) [Volume fraction] 39.9 % Low 40-54 [facility] Comment on above: Order Comment: 109-1 Performed By: #### L 100.0100 ####[facility] [address] [place], [address] Hemoglobin (Bld) [Mass/Vol] 13.4 g/dL Normal 13.0-16.5 [facility] Comment on above: Order Comment: 109-1 Performed By: #### L 100.0100 ####[facility] [address] [place], [address] IG% 0.300 Normal 0.0-0.9 [facility] Comment on above: Order Comment: 109-1 Result Comment: IG% - Immature Granulocytes (promyelocytes, myelocytes andmetamyelocytes) > 1% indicates that a LEFT SHIFT is Present. Performed By: #### L 100.0100 ####[facility] [address] [place], [address] Lymphocytes/100 WBC (Bld) 28.9 % Normal 19-41 [facility] Comment on above: Order Comment: 109-1 Performed By: #### L 100.0100 ####[facility] [address], [address] MCH (RBC) [Entitic mass] 30.9 pg Normal 27.0-32.0 [facility] Comment on above: Order Comment: 109-1 Performed By: #### L 100.0100 ####[facility] [address] [place], [address] MCHC (RBC) [Mass/Vol] 33.6 g/dL Normal 32-36 [facility] Comment on above: Order Comment: 109-1 Performed By: #### L 100.0100 ####[facility] [address], [address] MCV (RBC) [Entitic vol] 91.9 fL Normal 80-94 [facility] Comment on above: Order Comment: 109-1 Performed By: #### L 100.0100 ####[facility] [address] [place], [address] Monocytes/100 WBC (Bld) 8.0 % Normal 0-10 [facility] Comment on above: Order Comment: 109-1 Performed By: #### L 100.0100 ####[facility] [address] [place], [address] Neutrophils/100 WBC (Bld) 61.3 % Normal 47-70 [facility] Comment on above: Order Comment: 109-1 Performed By: #### L 100.0100 ####[facility] [address] [place], [address] Nucleated RBC (Bld) [#/Vol] 0 10*3/uL Normal 0-5 [facility] Comment on above: Order Comment: 109-1 Performed By: #### L 100.0100 ####[facility] [address] [place], [address] Platelet mean volume (Bld) [Entitic vol] 11.7 fL Normal 6.2-12.0 [facility] Comment on above: Order Comment: 109-1 Performed By: #### L 100.0100 ####[facility] [address] [place], [address] Platelets (Bld) [#/Vol] 201 10*3/uL Normal 150-450 [facility] Comment on above: Order Comment: 109-1 Performed By: #### L 100.0100 ####[facility] [address] [place], [address] RBC (Bld) [#/Vol] 4.34 10*6/uL Low 4.6-6.2 [facility] Comment on above: Order Comment: 109-1 Performed By: #### L 100.0100 ####[facility] [address] [place], [address] RDW SD 43.4 fl Normal 35.1-43.9 [facility] Comment on above: Order Comment: 109-1 Performed By: #### L 100.0100 ####[facility] [address] [place], [address] WBC (Bld) [#/Vol] 6.8 10*3/uL Normal 4.4-11.0 [facility] Comment on above: Order Comment: 109-1 Performed By: #### L 100.0100 ####[facility] [address] [place], [address] Eosinophil percentageOrdered By: Renard Burgos on 12-23-2024 Eosinophils/100 WBC (Bld) 0.9 % 0-5 [facility] Erythrocyte distribution wid th ratioOrdered By: Renard Burgos on 12-23-2024 Erythrocyte distribution width (RBC) [Ratio] 13.0 % 11.6-14.6 [facility] Erythrocyte distribution wid th standard deviationOrdered By: Renard Burgos on 12-23-2024 Erythrocyte distribution width (RBC) [Ratio] 43.4 fl 35.1-43.9 [facility] Hematocrit Auto (Bld) [Volum e fraction]Ordered By: Renard Burgos on 12-23-2024 Hematocrit (Bld) [Volume fraction] 39.9 % Low 40-54 [facility] Hemoglobin measurementOrdere d By: Renard Burgos on 12-23-2024 Hemoglobin (Bld) [Mass/Vol] 13.4 g/dL 13.0-16.5 [facility] Immature granulocytes/100 WB C Auto (Bld)Ordered By: Renard Burgos on 12-23-2024 Immature granulocytes/100 WBC (Bld) 0.300 % 0.0-0.9 [facility] Comment on above: IG% - Immature Granu locytes (promyelocytes, myelocytes and metamyelocytes) > 1% indicates that a LEFT SHIFT is Present. MCV (mean corpuscular volume ) determinationOrdered By: Renard Burgos on 12-23-2024 MCV (RBC) [Entitic vol] 91.9 fL 80-94 [facility] Mean corpuscular hemoglobin (MCH) determinationOrdered By: Renard Burgos on 12-23-2024 MCH (RBC) [Entitic mass] 30.9 pg 27.0-32.0 [facility] Mean corpuscular hemoglobin concentration (MCHC) determinationOrdered By: Renard Burgos on 12-23-2024 MCHC (RBC) [Mass/Vol] 33.6 g/dL 32-36 [facility] Mean platelet volume determi nationOrdered By: Renard Burgos on 12-23-2024 Platelet mean volume (Bld) [Entitic vol] 11.7 fL 6.2-12.0 [facility] Monocyte percentageOrdered B y: Renard Burgos on 12-23-2024 Monocytes/100 WBC (Bld) 8.0 % 0-10 [facility] Neutrophil percentageOrdered By: Renard Burgos on 12-23-2024 Neutrophils/100 WBC (Bld) 61.3 % 47-70 [facility] Nucleated red blood cell per centageOrdered By: Renard Burgos on 12-23-2024 Nucleated RBC/100 WBC (Bld) [Ratio] 0 % 0-5 [facility] Platelet countOrdered By: Garrick Bhatt on 12-23-2024 Platelets (Bld) [#/Vol] 201 10*3/uL 150-450 [facility] RBC Auto (Bld) [#/Vol]Ordere d By: Renard Burgos on 12-23-2024 RBC (Bld) [#/Vol] 4.34 10*6/uL Low 4.6-6.2 [facility] White blood cell (WBC) count Ordered By: Renard Burgos on 12-23-2024 WBC (Bld) [#/Vol] 6.8 10*3/uL 4.4-11.0 [facility] Absolute lymphocyte countOrd ered By: Renard Burgos on 12-16-2024 Lymphocytes Auto (Unsp spec) [#/Vol] 2.15 10*3/uL 0.83-4.51 [facility] Absolute neutrophil countOrd ered By: Renard Burgos on 12-16-2024 Neutrophils (Bld) [#/Vol] 4.1 10*3/uL 2.0-7.7 [facility] Automated lymphocyte count a s percentage of total leukocytesOrdered By: Renard Burgos on 12-16-2024 Lymphocytes/100 WBC Auto (Unsp spec) 30.7 % 19-41 [facility] Basophil percentageOrdered B y: Renard Burgos on 12-16-2024 Basophils/100 WBC (Bld) 0.7 % 0-1 [facility] CBC W/Diff, Automatedon 11-29-2024 Absolute Lymph 2.15 X10 3/uL Normal 0.83-4.51 [facility] Comment on above: Order Comment: 109.1 Performed By: #### L 100.0100 ####[facility] [address] [place], [address] Absolute Neut 4.1 X10 3/uL Normal 2.0-7.7 [facility] Comment on above: Order Comment: 109.1 Performed By: #### L 100.0100 ####[facility] [address] [place], [address] Basophils/100 WBC (Bld) 0.7 % Normal 0-1 [facility] Comment on above: Order Comment: 109.1 Performed By: #### L 100.0100 ####[facility] [address] [place], [address] Eosinophils/100 WBC (Bld) 0.9 % Normal 0-5 [facility] Comment on above: Order Comment: 109.1 Performed By: #### L 100.0100 ####[facility] [address] [place], [address] Erythrocyte distribution width (RBC) [Ratio] 13.2 % Normal 11.6-14.6 [facility] Comment on above: Order Comment: 109.1 Performed By: #### L 100.0100 ####[facility] [address] [place], [address] Hematocrit (Bld) [Volume fraction] 38.7 % Low 40-54 [facility] Comment on above: Order Comment: 109.1 Performed By: #### L 100.0100 ####[facility] [address] [place], [address] Hemoglobin (Bld) [Mass/Vol] 12.8 g/dL Low 13.0-16.5 [facility] Comment on above: Order Comment: 109.1 Performed By: #### L 100.0100 ####[facility] [address] [place], [address] IG% 0.300 Normal 0.0-0.9 [facility] Comment on above: Order Comment: 109.1 Result Comment: IG% - Immature Granulocytes (promyelocytes, myelocytes andmetamyelocytes) > 1% indicates that a LEFT SHIFT is Present. Performed By: #### L 100.0100 ####[facility] [address] [place], [address] Lymphocytes/100 WBC (Bld) 30.7 % Normal 19-41 [facility] Comment on above: Order Comment: 109.1 Performed By: #### L 100.0100 ####[facility] [address] [place], [address] MCH (RBC) [Entitic mass] 30.3 pg Normal 27.0-32.0 [facility] Comment on above: Order Comment: 109.1 Performed By: #### L 100.0100 ####[facility] [address] [place], [address] MCHC (RBC) [Mass/Vol] 33.1 g/dL Normal 32-36 [facility] Comment on above: Order Comment: 109.1 Performed By: #### L 100.0100 ####[facility] [address] [place], [address] MCV (RBC) [Entitic vol] 91.7 fL Normal 80-94 [facility] Comment on above: Order Comment: 109.1 Performed By: #### L 100.0100 ####[facility] [address] [place], [address] Monocytes/100 WBC (Bld) 8.6 % Normal 0-10 [facility] Comment on above: Order Comment: 109.1 Performed By: #### L 100.0100 ####[facility] [address] [place], [address] Neutrophils/100 WBC (Bld) 58.8 % Normal 47-70 [facility] Comment on above: Order Comment: 109.1 Performed By: #### L 100.0100 ####[facility] [address] [place], [address] Nucleated RBC (Bld) [#/Vol] 0 10*3/uL Normal 0-5 [facility] Comment on above: Order Comment: 109.1 Performed By: #### L 100.0100 ####[facility] [address] [place], [address] Platelet mean volume (Bld) [Entitic vol] 11.3 fL Normal 6.2-12.0 [facility] Comment on above: Order Comment: 109.1 Performed By: #### L 100.0100 ####[facility] [address] [place], [address] Platelets (Bld) [#/Vol] 202 10*3/uL Normal 150-450 [facility] Comment on above: Order Comment: 109.1 Performed By: #### L 100.0100 ####[facility] [address] [place], [address] RBC (Bld) [#/Vol] 4.22 10*6/uL Low 4.6-6.2 [facility] Comment on above: Order Comment: 109.1 Performed By: #### L 100.0100 ####[facility] [address] [place], [address] RDW SD 44.4 fl High 35.1-43.9 [facility] Comment on above: Order Comment: 109.1 Performed By: #### L 100.0100 ####[facility] [address] [place], [address] WBC (Bld) [#/Vol] 7.0 10*3/uL Normal 4.4-11.0 [facility] Comment on above: Order Comment: 109.1 Performed By: #### L 100.0100 ####[facility] [address] [place], [address] Eosinophil percentageOrdered By: Renard Burgos on 12-16-2024 Eosinophils/100 WBC (Bld) 0.9 % 0-5 [facility] Erythrocyte distribution wid th ratioOrdered By: Renard Burgos on 12-16-2024 Erythrocyte distribution width (RBC) [Ratio] 13.2 % 11.6-14.6 [facility] Erythrocyte distribution wid th standard deviationOrdered By: Renard Burgos on 12-16-2024 Erythrocyte distribution width (RBC) [Ratio] 44.4 fl High 35.1-43.9 [facility] Hematocrit Auto (Bld) [Volum e fraction]Ordered By: Renard Burgos on 12-16-2024 Hematocrit (Bld) [Volume fraction] 38.7 % Low 40-54 [facility] Hemoglobin measurementOrdere d By: Renard Burgos on 12-16-2024 Hemoglobin (Bld) [Mass/Vol] 12.8 g/dL Low 13.0-16.5 [facility] Immature granulocytes/100 WB C Auto (Bld)Ordered By: Renard Burgos on 12-16-2024 Immature granulocytes/100 WBC (Bld) 0.300 % 0.0-0.9 [facility] Comment on above: IG% - Immature Granu locytes (promyelocytes, myelocytes and metamyelocytes) > 1% indicates that a LEFT SHIFT is Present. MCV (mean corpuscular volume ) determinationOrdered By: Renard Bugros on 12-16-2024 MCV (RBC) [Entitic vol] 91.7 fL 80-94 [facility] Mean corpuscular hemoglobin (MCH) determinationOrdered By: Renard Burgos on 12-16-2024 MCH (RBC) [Entitic mass] 30.3 pg 27.0-32.0 [facility] Mean corpuscular hemoglobin concentration (MCHC) determinationOrdered By: Renard Burgos on 12-16-2024 MCHC (RBC) [Mass/Vol] 33.1 g/dL 32-36 [facility] Mean platelet volume determi nationOrdered By: Renard Burgos on 12-16-2024 Platelet mean volume (Bld) [Entitic vol] 11.3 fL 6.2-12.0 [facility] Monocyte percentageOrdered B y: Renard Burgos on 12-16-2024 Monocytes/100 WBC (Bld) 8.6 % 0-10 [facility] Neutrophil percentageOrdered By: Renard Burgos on 12-16-2024 Neutrophils/100 WBC (Bld) 58.8 % 47-70 [facility] Nucleated red blood cell per centageOrdered By: Renard Burgos on 12-16-2024 Nucleated RBC/100 WBC (Bld) [Ratio] 0 % 0-5 [facility] Platelet countOrdered By: Garrick Bhatt on 12-16-2024 Platelets (Bld) [#/Vol] 202 10*3/uL 150-450 [facility] RBC Auto (Bld) [#/Vol]Ordere d By: Renard Burgos on 12-16-2024 RBC (Bld) [#/Vol] 4.22 10*6/uL Low 4.6-6.2 [facility] White blood cell (WBC) count Ordered By: Renard Burgos on 12-16-2024 WBC (Bld) [#/Vol] 7.0 10*3/uL 4.4-11.0 [facility] Absolute lymphocyte countOrd ered By: Renard Burgos on 12-09-2024 Lymphocytes Auto (Unsp spec) [#/Vol] 2.30 10*3/uL 0.83-4.51 [facility] Absolute neutrophil countOrd ered By: Renard Burgos on 12-09-2024 Neutrophils (Bld) [#/Vol] 4.8 10*3/uL 2.0-7.7 [facility] Automated lymphocyte count a s percentage of total leukocytesOrdered By: Renard Burgos on 12-09-2024 Lymphocytes/100 WBC Auto (Unsp spec) 29.2 % 19-41 [facility] Basophil percentageOrdered B y: Renard Burgos on 12-09-2024 Basophils/100 WBC (Bld) 0.5 % 0-1 [facility] CBC W/Diff, Automatedon 11-29-2024 Absolute Lymph 2.30 X10 3/uL Normal 0.83-4.51 [facility] Comment on above: Order Comment: 109.1 Performed By: #### L 100.0100 ####[facility] [address] [place], [address] Absolute Neut 4.8 X10 3/uL Normal 2.0-7.7 [facility] Comment on above: Order Comment: 109.1 Performed By: #### L 100.0100 ####[facility] [address] [place], [address] Basophils/100 WBC (Bld) 0.5 % Normal 0-1 [facility] Comment on above: Order Comment: 109.1 Performed By: #### L 100.0100 ####[facility] [address] [place], [address] Eosinophils/100 WBC (Bld) 1.0 % Normal 0-5 [facility] Comment on above: Order Comment: 109.1 Performed By: #### L 100.0100 ####[facility] [address] [place], [address] Erythrocyte distribution width (RBC) [Ratio] 13.0 % Normal 11.6-14.6 [facility] Comment on above: Order Comment: 109.1 Performed By: #### L 100.0100 ####[facility] [address] [place], [address] Hematocrit (Bld) [Volume fraction] 40.3 % Normal 40-54 [facility] Comment on above: Order Comment: 109.1 Performed By: #### L 100.0100 ####[facility] [address] [place], [address] Hemoglobin (Bld) [Mass/Vol] 12.8 g/dL Low 13.0-16.5 [facility] Comment on above: Order Comment: 109.1 Performed By: #### L 100.0100 ####[facility] [address] [place], [address] IG% 0.400 Normal 0.0-0.9 [facility] Comment on above: Order Comment: 109.1 Result Comment: IG% - Immature Granulocytes (promyelocytes, myelocytes andmetamyelocytes) > 1% indicates that a LEFT SHIFT is Present. Performed By: #### L 100.0100 ####[facility] [address] [place], [address] Lymphocytes/100 WBC (Bld) 29.2 % Normal 19-41 [facility] Comment on above: Order Comment: 109.1 Performed By: #### L 100.0100 ####[facility] [address] [place], [address] MCH (RBC) [Entitic mass] 29.6 pg Normal 27.0-32.0 [facility] Comment on above: Order Comment: 109.1 Performed By: #### L 100.0100 ####[facility] [address] [place], [address] MCHC (RBC) [Mass/Vol] 31.8 g/dL Low 32-36 [facility] Comment on above: Order Comment: 109.1 Performed By: #### L 100.0100 ####[facility] [address] [place], [address] MCV (RBC) [Entitic vol] 93.1 fL Normal 80-94 [facility] Comment on above: Order Comment: 109.1 Performed By: #### L 100.0100 ####[facility] [address] [place], [address] Monocytes/100 WBC (Bld) 7.7 % Normal 0-10 [facility] Comment on above: Order Comment: 109.1 Performed By: #### L 100.0100 ####[facility] [address] [place], [address] Neutrophils/100 WBC (Bld) 61.2 % Normal 47-70 [facility] Comment on above: Order Comment: 109.1 Performed By: #### L 100.0100 ####[facility] [address], [address] Nucleated RBC (Bld) [#/Vol] 0 10*3/uL Normal 0-5 [facility] Comment on above: Order Comment: 109.1 Performed By: #### L 100.0100 ####[facility] [address] [place], [address] Platelet mean volume (Bld) [Entitic vol] 11.5 fL Normal 6.2-12.0 [facility] Comment on above: Order Comment: 109.1 Performed By: #### L 100.0100 ####[facility] [address] [place], [address] Platelets (Bld) [#/Vol] 194 10*3/uL Normal 150-450 [facility] Comment on above: Order Comment: 109.1 Performed By: #### L 100.0100 ####[facility] [address] [place], [address] RBC (Bld) [#/Vol] 4.33 10*6/uL Low 4.6-6.2 [facility] Comment on above: Order Comment: 109.1 Performed By: #### L 100.0100 ####[facility] [address] [place], [address] RDW SD 44.3 fl High 35.1-43.9 [facility] Comment on above: Order Comment: 109.1 Performed By: #### L 100.0100 ####[facility] [address] [place], [address] WBC (Bld) [#/Vol] 7.9 10*3/uL Normal 4.4-11.0 [facility] Comment on above: Order Comment: 109.1 Performed By: #### L 100.0100 ####[facility] [address] [place], [address] Eosinophil percentageOrdered By: Renard Burgos on 12-09-2024 Eosinophils/100 WBC (Bld) 1.0 % 0-5 [facility] Erythrocyte distribution wid th ratioOrdered By: Renard Burgos on 12-09-2024 Erythrocyte distribution width (RBC) [Ratio] 13.0 % 11.6-14.6 [facility] Erythrocyte distribution wid th standard deviationOrdered By: Renard Burgos on 12-09-2024 Erythrocyte distribution width (RBC) [Ratio] 44.3 fl High 35.1-43.9 [facility] Hematocrit Auto (Bld) [Volum e fraction]Ordered By: Renard Burgos on 12-09-2024 Hematocrit (Bld) [Volume fraction] 40.3 % 40-54 [facility] Hemoglobin measurementOrdere d By: Renard Burgos on 12-09-2024 Hemoglobin (Bld) [Mass/Vol] 12.8 g/dL Low 13.0-16.5 [facility] Immature granulocytes/100 WB C Auto (Bld)Ordered By: Renard Burgos on 12-09-2024 Immature granulocytes/100 WBC (Bld) 0.400 % 0.0-0.9 [facility] Comment on above: IG% - Immature Granu locytes (promyelocytes, myelocytes and metamyelocytes) > 1% indicates that a LEFT SHIFT is Present. MCV (mean corpuscular volume ) determinationOrdered By: Renard Burgos on 12-09-2024 MCV (RBC) [Entitic vol] 93.1 fL 80-94 [facility] Mean corpuscular hemoglobin (MCH) determinationOrdered By: Renard Burgos on 12-09-2024 MCH (RBC) [Entitic mass] 29.6 pg 27.0-32.0 [facility] Mean corpuscular hemoglobin concentration (MCHC) determinationOrdered By: Renard Burgos on 12-09-2024 MCHC (RBC) [Mass/Vol] 31.8 g/dL Low 32-36 [facility] Mean platelet volume determi nationOrdered By: Renard Burgos on 12-09-2024 Platelet mean volume (Bld) [Entitic vol] 11.5 fL 6.2-12.0 [facility] Monocyte percentageOrdered B y: Renard Burgos on 12-09-2024 Monocytes/100 WBC (Bld) 7.7 % 0-10 [facility] Neutrophil percentageOrdered By: Renard Burgos on 12-09-2024 Neutrophils/100 WBC (Bld) 61.2 % 47-70 [facility] Nucleated red blood cell per centageOrdered By: Renard Burgos on 12-09-2024 Nucleated RBC/100 WBC (Bld) [Ratio] 0 % 0-5 [facility] Platelet countOrdered By: Garrick Bhatt on 12-09-2024 Platelets (Bld) [#/Vol] 194 10*3/uL 150-450 [facility] RBC Auto (Bld) [#/Vol]Ordere d By: Reanrd Burgos on 12-09-2024 RBC (Bld) [#/Vol] 4.33 10*6/uL Low 4.6-6.2 [facility] White blood cell (WBC) count Ordered By: Renard Burgos on 12-09-2024 WBC (Bld) [#/Vol] 7.9 10*3/uL 4.4-11.0 [facility] Absolute lymphocyte countOrd ered By: Renard Burgos on 12-02-2024 Lymphocytes Auto (Unsp spec) [#/Vol] 2.83 10*3/uL 0.83-4.51 [facility] Absolute neutrophil countOrd ered By: Renard Burgos on 12-02-2024 Neutrophils (Bld) [#/Vol] 4.7 10*3/uL 2.0-7.7 [facility] Automated lymphocyte count a s percentage of total leukocytesOrdered By: Renard Shellierustam on 12-02-2024 Lymphocytes/100 WBC Auto (Unsp spec) 31.3 % 19-41 [facility] Basophil percentageOrdered B y: Renard Hensleyrustam on 12-02-2024 Basophils/100 WBC (Bld) 0.8 % 0-1 [facility] CBC W/Diff, Automatedon Absolute Lymph 2.83 X10 3/uL Normal 0.83-4.51 [facility] Comment on above: Order Comment: 109.1 Performed By: #### L 100.0100 ####[facility] [address] [place], [address] Absolute Neut 4.7 X10 3/uL Normal 2.0-7.7 [facility] Comment on above: Order Comment: 109.1 Performed By: #### L 100.0100 ####[facility] [address] [place], [address] Basophils/100 WBC (Bld) 0.8 % Normal 0-1 [facility] Comment on above: Order Comment: 109.1 Performed By: #### L 100.0100 ####[facility] [address] [place], [address] Eosinophils/100 WBC (Bld) 0.9 % Normal 0-5 [facility] Comment on above: Order Comment: 109.1 Performed By: #### L 100.0100 ####[facility] [address] [place], [address] Erythrocyte distribution width (RBC) [Ratio] 13.2 % Normal 11.6-14.6 [facility] Comment on above: Order Comment: 109.1 Performed By: #### L 100.0100 ####[facility] [address] [place], [address] Hematocrit (Bld) [Volume fraction] 41.4 % Normal 40-54 [facility] Comment on above: Order Comment: 109.1 Performed By: #### L 100.0100 ####[facility] [address] [place], [address] Hemoglobin (Bld) [Mass/Vol] 13.2 g/dL Normal 13.0-16.5 [facility] Comment on above: Order Comment: 109.1 Performed By: #### L 100.0100 ####[facility] [address] [place], [address] IG% 0.300 Normal 0.0-0.9 [facility] Comment on above: Order Comment: 109.1 Result Comment: IG% - Immature Granulocytes (promyelocytes, myelocytes andmetamyelocytes) > 1% indicates that a LEFT SHIFT is Present. Performed By: #### L 100.0100 ####[facility] [address] [place], [address] Lymphocytes/100 WBC (Bld) 31.3 % Normal 19-41 [facility] Comment on above: Order Comment: 109.1 Performed By: #### L 100.0100 ####[facility] [address] [place], [address] MCH (RBC) [Entitic mass] 30.1 pg Normal 27.0-32.0 [facility] Comment on above: Order Comment: 109.1 Performed By: #### L 100.0100 ####[facility] [address] [place], [address] MCHC (RBC) [Mass/Vol] 31.9 g/dL Low 32-36 [facility] Comment on above: Order Comment: 109.1 Performed By: #### L 100.0100 ####[facility] [address] [place], [address] MCV (RBC) [Entitic vol] 94.5 fL High 80-94 [facility] Comment on above: Order Comment: 109.1 Performed By: #### L 100.0100 ####[facility] [address] [place], [address] Monocytes/100 WBC (Bld) 14.8 % High 0-10 [facility] Comment on above: Order Comment: 109.1 Performed By: #### L 100.0100 ####[facility] [address] [place], [address] Neutrophils/100 WBC (Bld) 51.9 % Normal 47-70 [facility] Comment on above: Order Comment: 109.1 Performed By: #### L 100.0100 ####[facility] [address] [place], [address] Nucleated RBC (Bld) [#/Vol] 0 10*3/uL Normal 0-5 [facility] Comment on above: Order Comment: 109.1 Performed By: #### L 100.0100 ####[facility] [address] [place], [address] Platelet mean volume (Bld) [Entitic vol] 11.2 fL Normal 6.2-12.0 [facility] Comment on above: Order Comment: 109.1 Performed By: #### L 100.0100 ####[facility] [address] [place], [address] Platelets (Bld) [#/Vol] 182 10*3/uL Normal 150-450 [facility] Comment on above: Order Comment: 109.1 Performed By: #### L 100.0100 ####[facility] [address] [place], [address] RBC (Bld) [#/Vol] 4.38 10*6/uL Low 4.6-6.2 [facility] Comment on above: Order Comment: 109.1 Performed By: #### L 100.0100 ####[facility] [address] [place], [address] RDW SD 45.5 fl High 35.1-43.9 [facility] Comment on above: Order Comment: 109.1 Performed By: #### L 100.0100 ####[facility] [address] [place], [address] WBC (Bld) [#/Vol] 9.1 10*3/uL Normal 4.4-11.0 [facility] Comment on above: Order Comment: 109.1 Performed By: #### L 100.0100 ####[facility] [address] [place], [address] Eosinophil percentageOrdered By: Renard Burgos on 12-02-2024 Eosinophils/100 WBC (Bld) 0.9 % 0-5 [facility] Erythrocyte distribution wid th ratioOrdered By: Renard Burgos on 12-02-2024 Erythrocyte distribution width (RBC) [Ratio] 13.2 % 11.6-14.6 [facility] Erythrocyte distribution wid th standard deviationOrdered By: Renard Burgos on 12-02-2024 Erythrocyte distribution width (RBC) [Ratio] 45.5 fl High 35.1-43.9 [facility] Hematocrit Auto (Bld) [Volum e fraction]Ordered By: Renard Burgos on 12-02-2024 Hematocrit (Bld) [Volume fraction] 41.4 % 40-54 [facility] Hemoglobin measurementOrdere d By: Renard Burgos on 12-02-2024 Hemoglobin (Bld) [Mass/Vol] 13.2 g/dL 13.0-16.5 [facility] Immature granulocytes/100 WB C Auto (Bld)Ordered By: Renard Burgos on 12-02-2024 Immature granulocytes/100 WBC (Bld) 0.300 % 0.0-0.9 [facility] Comment on above: IG% - Immature Granu locytes (promyelocytes, myelocytes and metamyelocytes) > 1% indicates that a LEFT SHIFT is Present. MCV (mean corpuscular volume ) determinationOrdered By: Renard Burgos on 12-02-2024 MCV (RBC) [Entitic vol] 94.5 fL High 80-94 [facility] Mean corpuscular hemoglobin (MCH) determinationOrdered By: Renard Burgos on 12-02-2024 MCH (RBC) [Entitic mass] 30.1 pg 27.0-32.0 [facility] Mean corpuscular hemoglobin concentration (MCHC) determinationOrdered By: Renard Burgos on 12-02-2024 MCHC (RBC) [Mass/Vol] 31.9 g/dL Low 32-36 [facility] Mean platelet volume determi nationOrdered By: Renard Burgos on 12-02-2024 Platelet mean volume (Bld) [Entitic vol] 11.2 fL 6.2-12.0 [facility] Monocyte percentageOrdered B y: Renard Burgos on 12-02-2024 Monocytes/100 WBC (Bld) 14.8 % High 0-10 [facility] Neutrophil percentageOrdered By: Renard Burgos on 12-02-2024 Neutrophils/100 WBC (Bld) 51.9 % 47-70 [facility] Nucleated red blood cell per centageOrdered By: Renard Burgos on 12-02-2024 Nucleated RBC/100 WBC (Bld) [Ratio] 0 % 0-5 [facility] Platelet countOrdered By: Garrick Bhatt on 12-02-2024 Platelets (Bld) [#/Vol] 182 10*3/uL 150-450 [facility] RBC Auto (Bld) [#/Vol]Ordere d By: Renard Burgos on 12-02-2024 RBC (Bld) [#/Vol] 4.38 10*6/uL Low 4.6-6.2 [facility] White blood cell (WBC) count Ordered By: Renard Burgos on 12-02-2024 WBC (Bld) [#/Vol] 9.1 10*3/uL 4.4-11.0 [facility] Absolute lymphocyte countOrd ered By: Renard Burgos on 11-25-2024 Lymphocytes Auto (Unsp spec) [#/Vol] 1.80 10*3/uL 0.83-4.51 [facility] Absolute neutrophil countOrd ered By: Renard Burgos on 11-25-2024 Neutrophils (Bld) [#/Vol] 7.6 10*3/uL 2.0-7.7 [facility] Automated blood erythrocyte countOrdered By: Renard Burgos on 11-25-2024 RBC (Bld) [#/Vol] 4.57 10*6/uL Low 4.6-6.2 [facility] Comment on above: Order Comment: 109-1 Performed By: #### L 100.0100 ####[facility] [address] [place], [place], [address] Automated blood hematocrit ( percentage)Ordered By: Renard Burgos on 11-25-2024 Hematocrit (Bld) [Volume fraction] 42.1 % Normal 40-54 [facility] Comment on above: Order Comment: 109-1 Performed By: #### L 100.0100 ####[facility] [address] [place], [place], [address] Automated lymphocyte count a s percentage of total leukocytesOrdered By: Renard Burgos on 11-25-2024 Lymphocytes/100 WBC Auto (Unsp spec) 17.3 % Low 19-41 [facility] Basophil percentageOrdered B y: Renard Burgos on 11-25-2024 Basophils/100 WBC (Bld) 0.4 % Normal 0-1 [facility] Comment on above: Order Comment: 109-1 Performed By: #### L 100.0100 ####[facility] [address] [place], [place], [address] CBC W/Diff, Automatedon 10-30 Absolute Lymph 1.80 X10 3/uL Normal 0.83-4.51 [facility] Comment on above: Order Comment: 109-1 Performed By: #### L 100.0100 ####[facility] [address] [place], [address] Absolute Neut 7.6 X10 3/uL Normal 2.0-7.7 [facility] Comment on above: Order Comment: 109-1 Performed By: #### L 100.0100 ####[facility] [address] [place], [address] IG% 0.400 Normal 0.0-0.9 [facility] Comment on above: Order Comment: 109-1 Result Comment: IG% - Immature Granulocytes (promyelocytes, myelocytes andmetamyelocytes) > 1% indicates that a LEFT SHIFT is Present. Performed By: #### L 100.0100 ####[facility] [address] [place], [address] Lymphocytes/100 WBC (Bld) 17.3 % Low 19-41 [facility] Comment on above: Order Comment: 109-1 Performed By: #### L 100.0100 ####[facility] [address] [place], [address] Nucleated RBC (Bld) [#/Vol] 0 10*3/uL Normal 0-5 [facility] Comment on above: Order Comment: 109-1 Performed By: #### L 100.0100 ####[facility] [address] [place], [address] RDW SD 43.7 fl Normal 35.1-43.9 [facility] Comment on above: Order Comment: 109-1 Performed By: #### L 100.0100 ####[facility] [address] [place], [address] Eosinophil percentageOrdered By: Renard Burgos on 11-25-2024 Eosinophils/100 WBC (Bld) 0.6 % Normal 0-5 [facility] Comment on above: Order Comment: 109-1 Performed By: #### L 100.0100 ####[facility] [address] [place], [place], [address] Erythrocyte distribution wid th ratioOrdered By: Renard Burgos on 11-25-2024 Erythrocyte distribution width (RBC) [Ratio] 12.9 % Normal 11.6-14.6 [facility] Comment on above: Order Comment: 109-1 Performed By: #### L 100.0100 ####[facility] [address] [place], [place], [id number]) Erythrocyte distribution wid th standard deviationOrdered By: Renard Burgos on 11-25-2024 Erythrocyte distribution width (RBC) [Ratio] 43.7 fl 35.1-43.9 [facility] Hemoglobin measurementOrdere d By: Renard Burgos on 11-25-2024 Hemoglobin (Bld) [Mass/Vol] 13.8 g/dL Normal 13.0-16.5 [facility] Comment on above: Order Comment: 109-1 Performed By: #### L 100.0100 ####[facility] [address] [place], [address] Immature granulocytes/100 WB C Auto (Bld)Ordered By: Renard Burgos on 11-25-2024 Immature granulocytes/100 WBC (Bld) 0.400 % 0.0-0.9 [facility] Comment on above: IG% - Immature Granu locytes (promyelocytes, myelocytes and metamyelocytes) > 1% indicates that a LEFT SHIFT is Present. MCV (mean corpuscular volume ) determinationOrdered By: Renard Burgos on 11-25-2024 MCV (RBC) [Entitic vol] 92.1 fL Normal 80-94 [facility] Comment on above: Order Comment: 109-1 Performed By: #### L 100.0100 ####[facility] [address] [place], [place], [id number] Mean corpuscular hemoglobin (MCH) determinationOrdered By: Renard Burgos on 11-25-2024 MCH (RBC) [Entitic mass] 30.2 pg Normal 27.0-32.0 [facility] Comment on above: Order Comment: 109-1 Performed By: #### L 100.0100 ####[facility] [address] [place], [address] Mean corpuscular hemoglobin concentration (MCHC) determinationOrdered By: Renard Burgos on 11-25-2024 MCHC (RBC) [Mass/Vol] 32.8 g/dL Normal 32-36 [facility] Comment on above: Order Comment: 109-1 Performed By: #### L 100.0100 ####[facility] [address] [place], [address] Mean platelet volume determi nationOrdered By: Renard Burgos on 11-25-2024 Platelet mean volume (Bld) [Entitic vol] 11.7 fL Normal 6.2-12.0 [facility] Comment on above: Order Comment: 109-1 Performed By: #### L 100.0100 ####[facility] [address] [place], [address] Monocyte percentageOrdered B y: Renard Burgos on 11-25-2024 Monocytes/100 WBC (Bld) 8.6 % Normal 0-10 [facility] Comment on above: Order Comment: 109-1 Performed By: #### L 100.0100 ####[facility] [address] [place], [address] Neutrophil percentageOrdered By: Renard Burgos on 11-25-2024 Neutrophils/100 WBC (Bld) 72.7 % High 47-70 [facility] Comment on above: Order Comment: 109-1 Performed By: #### L 100.0100 ####[facility] [address] [place], [address] Nucleated red blood cell per centageOrdered By: Renard Burgos on 11-25-2024 Nucleated RBC/100 WBC (Bld) [Ratio] 0 % 0-5 [facility] Platelet countOrdered By: Garrick Bhatt on 07-28-2025 Platelets (Bld) [#/Vol] 201 10*3/uL Normal 150-450 [facility] Comment on above: Order Comment: 109-1 Performed By: #### L 100.0100 ####[facility] [address] [place], [place], [id number] White blood cell (WBC) count Ordered By: Renard Burgos on 11-25-2024 WBC (Bld) [#/Vol] 10.4 10*3/uL Normal 4.4-11.0 [facility] Comment on above: Order Comment: 109-1 Performed By: #### L 100.0100 ####[facility] [address] [place], [address] Absolute lymphocyte countOrd ered By: Renard Burgos on 11-18-2024 Lymphocytes Auto (Unsp spec) [#/Vol] 2.56 10*3/uL 0.83-4.51 [facility] Absolute neutrophil countOrd ered By: Renard Burgos on 11-18-2024 Neutrophils (Bld) [#/Vol] 6.7 10*3/uL 2.0-7.7 [facility] Automated lymphocyte count a s percentage of total leukocytesOrdered By: Renard Burgos on 11-18-2024 Lymphocytes/100 WBC Auto (Unsp spec) 24.9 % 19-41 [facility] Basophil percentageOrdered B y: Renard Burgos on 11-18-2024 Basophils/100 WBC (Bld) 0.5 % 0-1 [facility] CBC W/Diff, Automatedon 10-30 Absolute Lymph 2.56 X10 3/uL Normal 0.83-4.51 [facility] Comment on above: Order Comment: 109.1 Performed By: #### L 100.0100 ####[facility] [address] [place], [place], [address] Absolute Neut 6.7 X10 3/uL Normal 2.0-7.7 [facility] Comment on above: Order Comment: 109.1 Performed By: #### L 100.0100 ####[facility] [address] [place], [address] Basophils/100 WBC (Bld) 0.5 % Normal 0-1 [facility] Comment on above: Order Comment: 109.1 Performed By: #### L 100.0100 ####[facility] [address] [place], [address] Eosinophils/100 WBC (Bld) 0.8 % Normal 0-5 [facility] Comment on above: Order Comment: 109.1 Performed By: #### L 100.0100 ####[facility] [address] [place], [address] Erythrocyte distribution width (RBC) [Ratio] 13.2 % Normal 11.6-14.6 [facility] Comment on above: Order Comment: 109.1 Performed By: #### L 100.0100 ####[facility] [address], [address] Hematocrit (Bld) [Volume fraction] 41.6 % Normal 40-54 [facility] Comment on above: Order Comment: 109.1 Performed By: #### L 100.0100 ####[facility] [address] [place], [address] Hemoglobin (Bld) [Mass/Vol] 13.6 g/dL Normal 13.0-16.5 [facility] Comment on above: Order Comment: 109.1 Performed By: #### L 100.0100 ####[facility] [address] [place], [address] IG% 0.400 Normal 0.0-0.9 [facility] Comment on above: Order Comment: 109.1 Result Comment: IG% - Immature Granulocytes (promyelocytes, myelocytes andmetamyelocytes) > 1% indicates that a LEFT SHIFT is Present. Performed By: #### L 100.0100 ####[facility] [address] [place], [address] Lymphocytes/100 WBC (Bld) 24.9 % Normal 19-41 [facility] Comment on above: Order Comment: 109.1 Performed By: #### L 100.0100 ####[facility] [address] [place], [address] MCH (RBC) [Entitic mass] 30.3 pg Normal 27.0-32.0 [facility] Comment on above: Order Comment: 109.1 Performed By: #### L 100.0100 ####[facility] [address] [place], [address] MCHC (RBC) [Mass/Vol] 32.7 g/dL Normal 32-36 [facility] Comment on above: Order Comment: 109.1 Performed By: #### L 100.0100 ####[facility] [address] [place], [address] MCV (RBC) [Entitic vol] 92.7 fL Normal 80-94 [facility] Comment on above: Order Comment: 109.1 Performed By: #### L 100.0100 ####[facility] [address] [place], [address] Monocytes/100 WBC (Bld) 8.9 % Normal 0-10 [facility] Comment on above: Order Comment: 109.1 Performed By: #### L 100.0100 ####[facility] [address] [place], [address] Neutrophils/100 WBC (Bld) 64.5 % Normal 47-70 [facility] Comment on above: Order Comment: 109.1 Performed By: #### L 100.0100 ####[facility] [address] [place], [address] Nucleated RBC (Bld) [#/Vol] 0 10*3/uL Normal 0-5 [facility] Comment on above: Order Comment: 109.1 Performed By: #### L 100.0100 ####[facility] [address] [place], [address] Platelet mean volume (Bld) [Entitic vol] 11.0 fL Normal 6.2-12.0 [facility] Comment on above: Order Comment: 109.1 Performed By: #### L 100.0100 ####[facility] [address] [place], [address] Platelets (Bld) [#/Vol] 177 10*3/uL Normal 150-450 [facility] Comment on above: Order Comment: 109.1 Performed By: #### L 100.0100 ####[facility] [address] [place], [address] RBC (Bld) [#/Vol] 4.49 10*6/uL Low 4.6-6.2 [facility] Comment on above: Order Comment: 109.1 Performed By: #### L 100.0100 ####[facility] [address] [place], [address] RDW SD 44.9 fl High 35.1-43.9 [facility] Comment on above: Order Comment: 109.1 Performed By: #### L 100.0100 ####[facility] [address] [place], [address] WBC (Bld) [#/Vol] 10.3 10*3/uL Normal 4.4-11.0 [facility] Comment on above: Order Comment: 109.1 Performed By: #### L 100.0100 ####[facility] [address] [place], [address] Eosinophil percentageOrdered By: Renard Burgos on 11-18-2024 Eosinophils/100 WBC (Bld) 0.8 % 0-5 [facility] Erythrocyte distribution wid th ratioOrdered By: Renard Burgos on 11-18-2024 Erythrocyte distribution width (RBC) [Ratio] 13.2 % 11.6-14.6 [facility] Erythrocyte distribution wid th standard deviationOrdered By: Renard Burgos on 11-18-2024 Erythrocyte distribution width (RBC) [Ratio] 44.9 fl High 35.1-43.9 [facility] Hematocrit Auto (Bld) [Volum e fraction]Ordered By: Renard Burgos on 11-18-2024 Hematocrit (Bld) [Volume fraction] 41.6 % 40-54 [facility] Hemoglobin measurementOrdere d By: Renard Burgos on 11-18-2024 Hemoglobin (Bld) [Mass/Vol] 13.6 g/dL 13.0-16.5 [facility] Immature granulocytes/100 WB C Auto (Bld)Ordered By: Renard Burgos on 11-18-2024 Immature granulocytes/100 WBC (Bld) 0.400 % 0.0-0.9 [facility] Comment on above: IG% - Immature Granu locytes (promyelocytes, myelocytes and metamyelocytes) > 1% indicates that a LEFT SHIFT is Present. MCV (mean corpuscular volume ) determinationOrdered By: Renard Burgos on 11-18-2024 MCV (RBC) [Entitic vol] 92.7 fL 80-94 [facility] Mean corpuscular hemoglobin (MCH) determinationOrdered By: Renard Burgos on 11-18-2024 MCH (RBC) [Entitic mass] 30.3 pg 27.0-32.0 [facility] Mean corpuscular hemoglobin concentration (MCHC) determinationOrdered By: Renard Burgos on 11-18-2024 MCHC (RBC) [Mass/Vol] 32.7 g/dL 32-36 [facility] Mean platelet volume determi nationOrdered By: Renard Burgos on 11-18-2024 Platelet mean volume (Bld) [Entitic vol] 11.0 fL 6.2-12.0 [facility] Monocyte percentageOrdered B y: Renard Burgos on 11-18-2024 Monocytes/100 WBC (Bld) 8.9 % 0-10 [facility] Neutrophil percentageOrdered By: Renard Burgos on 11-18-2024 Neutrophils/100 WBC (Bld) 64.5 % 47-70 [facility] Nucleated red blood cell per centageOrdered By: Renard Burgos on 11-18-2024 Nucleated RBC/100 WBC (Bld) [Ratio] 0 % 0-5 [facility] Platelet countOrdered By: Garrick Bhatt on 11-18-2024 Platelets (Bld) [#/Vol] 177 10*3/uL 150-450 [facility] RBC Auto (Bld) [#/Vol]Ordere d By: Renard Burgos on 11-18-2024 RBC (Bld) [#/Vol] 4.49 10*6/uL Low 4.6-6.2 [facility] White blood cell (WBC) count Ordered By: Renard Burgos on 11-18-2024 WBC (Bld) [#/Vol] 10.3 10*3/uL 4.4-11.0 [facility] Basic Metabolic Profile (BMP )on 11-12-2024 BUN/CRE 18.8 RATIO Normal 10-20 [facility] Comment on above: Order Comment: ADDED BMP TO 11/11/24 LABS Performed By: #### L 100.0100, L500.2500 ####[facility] [address] [place], [address] Calcium [Mass/Vol] 8.2 mg/dL Normal 7.6-11.0 [facility] Comment on above: Order Comment: ADDED BMP TO 11/11/24 LABS Performed By: #### L 100.0100, L500.2500 ####[facility] [address] [place], [address] Chloride [Moles/Vol] 104 mmol/L Normal 98-108 [facility] Comment on above: Order Comment: ADDED BMP TO 11/11/24 LABS Performed By: #### L 100.0100, L500.2500 ####[facility] [address] [place], [address] CO2 [Moles/Vol] 24.9 mmol/L Normal 21.0-32.0 [facility] Comment on above: Order Comment: ADDED BMP TO 11/11/24 LABS Performed By: #### L 100.0100, L500.2500 ####[facility] [address] [place], [address] Creatinine [Mass/Vol] 0.58 mg/dL Low 0.70-1.20 [facility] Comment on above: Order Comment: ADDED BMP TO 11/11/24 LABS Performed By: #### L 100.0100, L500.2500 ####[facility] [address] [place], [address] GAP 11 Normal 5-15 [facility] Comment on above: Order Comment: ADDED BMP TO 11/11/24 LABS Performed By: #### L 100.0100, L500.2500 ####[facility] [address] [place], [address] GFR/1.73 sq M.predicted among non-blacks MDRD (S/P/Bld) [Vol rate/Area] 107 mL/min/{1.73_m2} Normal >60 [facility] Comment on above: Order Comment: ADDED BMP TO 11/11/24 LABS Result Comment: mL/m in/1.73m2 CKD-EPI Creatinine Equation (2020) Performed By: #### L 100.0100, L500.2500 ####[facility] [address] [place], [address] Glucose [Mass/Vol] 101 mg/dL High 70-99 [facility] Comment on above: Order Comment: ADDED BMP TO 11/11/24 LABS Performed By: #### L 100.0100, L500.2500 ####[facility] [address] [place], [address] Potassium [Moles/Vol] 3.9 mmol/L Normal 3.3-5.1 [facility] Comment on above: Order Comment: ADDED BMP TO 11/11/24 LABS Performed By: #### L 100.0100, L500.2500 ####[facility] [address] [place], [address] Sodium [Moles/Vol] 140 mmol/L Normal 133-145 [facility] Comment on above: Order Comment: ADDED BMP TO 11/11/24 LABS Performed By: #### L 100.0100, L500.2500 ####[facility] [address] [place], [address] Urea nitrogen [Mass/Vol] 11 mg/dL Normal 4- [facility] Comment on above: Order Comment: ADDED BMP TO 11/11/24 LABS Performed By: #### L 100.0100, L500.2500 ####[facility] [address] [place], [address] Absolute lymphocyte countOrd ered By: Renard Burgos on 11-11-2024 Lymphocytes Auto (Unsp spec) [#/Vol] 2.08 10*3/uL 0.83-4.51 [facility] Absolute neutrophil countOrd ered By: Renard Burgos on 11-11-2024 Neutrophils (Bld) [#/Vol] 5.2 10*3/uL 2.0-7.7 [facility] Anion gap in Serum or Plasma Ordered By: Renard Burgos on 11-11-2024 Anion gap [Moles/Vol] 11 mmol/L 5- [facility] Automated lymphocyte count a s percentage of total leukocytesOrdered By: Renard Burgos on 11-11-2024 Lymphocytes/100 WBC Auto (Unsp spec) 25.7 % - [facility] BUN/creatinine ratioOrdered By: Renard Burgos on 11-11-2024 Urea nitrogen/Creatinine [Mass ratio] 18.8 mg/mg 10- [facility] Basophil percentageOrdered B y: Renard Burgos on 11-11-2024 Basophils/100 WBC (Bld) 0.6 % 0-1 [facility] CBC W/Diff, Automatedon 10-29 Absolute Lymph 2.08 X10 3/uL Normal 0.83-4.51 [facility] Comment on above: Order Comment: 109.1 Performed By: #### L 100.0100, L500.2500 ####[facility] [address] [place], [address] Absolute Neut 5.2 X10 3/uL Normal 2.0-7.7 [facility] Comment on above: Order Comment: 109.1 Performed By: #### L 100.0100, L500.2500 ####[facility] [address], [address] Basophils/100 WBC (Bld) 0.6 % Normal 0-1 [facility] Comment on above: Order Comment: 109.1 Performed By: #### L 100.0100, L500.2500 ####[facility] [address] [place], [address] Eosinophils/100 WBC (Bld) 1.0 % Normal 0-5 [facility] Comment on above: Order Comment: 109.1 Performed By: #### L 100.0100, L500.2500 ####[facility] [address] [place], [address] Erythrocyte distribution width (RBC) [Ratio] 13.2 % Normal 11.6-14.6 [facility] Comment on above: Order Comment: 109.1 Performed By: #### L 100.0100, L500.2500 ####[facility] [address] [place], [address] Hematocrit (Bld) [Volume fraction] 38.6 % Low 40-54 [facility] Comment on above: Order Comment: 109.1 Performed By: #### L 100.0100, L500.2500 ####[facility] [address] [place], [address] Hemoglobin (Bld) [Mass/Vol] 12.6 g/dL Low 13.0-16.5 [facility] Comment on above: Order Comment: 109.1 Performed By: #### L 100.0100, L500.2500 ####[facility] [address] [place], [address] IG% 0.400 Normal 0.0-0.9 [facility] Comment on above: Order Comment: 109.1 Result Comment: IG% - Immature Granulocytes (promyelocytes, myelocytes andmetamyelocytes) > 1% indicates that a LEFT SHIFT is Present. Performed By: #### L 100.0100, L500.2500 ####[facility] [address] [place], [address] Lymphocytes/100 WBC (Bld) 25.7 % Normal 19-41 [facility] Comment on above: Order Comment: 109.1 Performed By: #### L 100.0100, L500.2500 ####[facility] [address] [place], [address] MCH (RBC) [Entitic mass] 29.9 pg Normal 27.0-32.0 [facility] Comment on above: Order Comment: 109.1 Performed By: #### L 100.0100, L500.2500 ####[facility] [address] [place], [address] MCHC (RBC) [Mass/Vol] 32.6 g/dL Normal 32-36 [facility] Comment on above: Order Comment: 109.1 Performed By: #### L 100.0100, L500.2500 ####[facility] [address] [place], [address] MCV (RBC) [Entitic vol] 91.7 fL Normal 80-94 [facility] Comment on above: Order Comment: 109.1 Performed By: #### L 100.0100, L500.2500 ####[facility] [address] [place], [address] Monocytes/100 WBC (Bld) 8.3 % Normal 0-10 [facility] Comment on above: Order Comment: 109.1 Performed By: #### L 100.0100, L500.2500 ####[facility] [address] [place], [address] Neutrophils/100 WBC (Bld) 64.0 % Normal 47-70 [facility] Comment on above: Order Comment: 109.1 Performed By: #### L 100.0100, L500.2500 ####[facility] [address] [place], [address] Nucleated RBC (Bld) [#/Vol] 0 10*3/uL Normal 0-5 [facility] Comment on above: Order Comment: 109.1 Performed By: #### L 100.0100, L500.2500 ####[facility] [address] [place], [address] Platelet mean volume (Bld) [Entitic vol] 11.4 fL Normal 6.2-12.0 [facility] Comment on above: Order Comment: 109.1 Performed By: #### L 100.0100, L500.2500 ####[facility] [address] [place], [address] Platelets (Bld) [#/Vol] 220 10*3/uL Normal 150-450 [facility] Comment on above: Order Comment: 109.1 Performed By: #### L 100.0100, L500.2500 ####[facility] [address] [place], [address] RBC (Bld) [#/Vol] 4.21 10*6/uL Low 4.6-6.2 [facility] Comment on above: Order Comment: 109.1 Performed By: #### L 100.0100, L500.2500 ####[facility] [address] [place], [address] RDW SD 44.4 fl High 35.1-43.9 [facility] Comment on above: Order Comment: 109.1 Performed By: #### L 100.0100, L500.2500 ####[facility] [address] [place], [place], [address] WBC (Bld) [#/Vol] 8.1 10*3/uL Normal 4.4-11.0 [facility] Comment on above: Order Comment: 109.1 Performed By: #### L 100.0100, L500.2500 ####[facility] [address] [place], [address] Carbon dioxide, total [Moles /volume] in Central venous bloodOrdered By: Renard Burgos on 11-11-2024 CO2 [Moles/Vol] 24.9 mmol/L 21.0-32.0 [facility] Chloride assayOrdered By: Garrick Bhatt on 11-11-2024 Chloride [Moles/Vol] 104 mmol/L 98-108 [facility] Eosinophil percentageOrdered By: Renard Burgos on 11-11-2024 Eosinophils/100 WBC (Bld) 1.0 % 0-5 [facility] Erythrocyte distribution wid th ratioOrdered By: Renard Burgos on 11-11-2024 Erythrocyte distribution width (RBC) [Ratio] 13.2 % 11.6-14.6 [facility] Erythrocyte distribution wid th standard deviationOrdered By: Renard Burgos on 11-11-2024 Erythrocyte distribution width (RBC) [Ratio] 44.4 fl High 35.1-43.9 [facility] Glomerular filtration rate ( GFR) estimation/1.73 sq m using serum, plasma, or whole bOrdered By: Renard Burgos on 11-11-2024 GFR/1.73 sq M.predicted among non-blacks MDRD (S/P/Bld) [Vol rate/Area] 107 mL/min/{1.73_m2} >60 [facility] Comment on above: mL/min/1.73m2 CKD-EP I Creatinine Equation (2020) Hematocrit Auto (Bld) [Volum e fraction]Ordered By: Renard Burgos on 11-11-2024 Hematocrit (Bld) [Volume fraction] 38.6 % Low 40-54 [facility] Hemoglobin measurementOrdere d By: Renard Burgos on 11-11-2024 Hemoglobin (Bld) [Mass/Vol] 12.6 g/dL Low 13.0-16.5 [facility] Immature granulocytes/100 WB C Auto (Bld)Ordered By: Renard Burgos on 11-11-2024 Immature granulocytes/100 WBC (Bld) 0.400 % 0.0-0.9 [facility] Comment on above: IG% - Immature Granu locytes (promyelocytes, myelocytes and metamyelocytes) > 1% indicates that a LEFT SHIFT is Present. MCV (mean corpuscular volume ) determinationOrdered By: Renard Burgos on 11-11-2024 MCV (RBC) [Entitic vol] 91.7 fL 80-94 [facility] Mean corpuscular hemoglobin (MCH) determinationOrdered By: Renard Burgos on 11-11-2024 MCH (RBC) [Entitic mass] 29.9 pg 27.0-32.0 [facility] Mean corpuscular hemoglobin concentration (MCHC) determinationOrdered By: Renard Burgos on 11-11-2024 MCHC (RBC) [Mass/Vol] 32.6 g/dL 32-36 [facility] Mean platelet volume determi nationOrdered By: Renard Burgos on 11-11-2024 Platelet mean volume (Bld) [Entitic vol] 11.4 fL 6.2-12.0 [facility] Monocyte percentageOrdered B y: Renard Burgos on 11-11-2024 Monocytes/100 WBC (Bld) 8.3 % 0-10 [facility] Neutrophil percentageOrdered By: Renard Burgos on 11-11-2024 Neutrophils/100 WBC (Bld) 64.0 % 47-70 [facility] Nucleated red blood cell per centageOrdered By: Renard Burgos on 11-11-2024 Nucleated RBC/100 WBC (Bld) [Ratio] 0 % 0-5 [facility] Platelet countOrdered By: Garrick Bhatt on 11-11-2024 Platelets (Bld) [#/Vol] 220 10*3/uL 150-450 [facility] Potassium measurement (mass/ volume)Ordered By: Renard Burgos on 11-11-2024 Potassium (Unsp spec) [Mass/Vol] 3.9 mmol/L 3.3-5.1 [facility] RBC Auto (Bld) [#/Vol]Ordere d By: Renard Burgos on 11-11-2024 RBC (Bld) [#/Vol] 4.21 10*6/uL Low 4.6-6.2 [facility] Serum creatinine measurement (mass/volume)Ordered By: Renard Burgos on 11-11-2024 Creatinine [Mass/Vol] 0.58 mg/dL Low 0.70-1.20 [facility] Serum glucose measurement (m ass/volume)Ordered By: Renard Burgos on 11-11-2024 Glucose [Mass/Vol] 101 mg/dL High 70-99 [facility] Serum or plasma calcium gordy urement (mass/volume)Ordered By: Renard Burgos on 11-11-2024 Calcium [Mass/Vol] 8.2 mg/dL 7.6-11.0 [facility] Serum or plasma urea nitroge n measurement (mass/volume)Ordered By: Renard Burgos on 11-11-2024 Urea nitrogen [Mass/Vol] 11 mg/dL 4-19 [facility] Sodium levelOrdered By: Lamine Burgos on 11-11-2024 Sodium [Moles/Vol] 140 mmol/L 133-145 [facility] White blood cell (WBC) count Ordered By: Renard Burgos on 11-11-2024 WBC (Bld) [#/Vol] 8.1 10*3/uL 4.4-11.0 [facility] Absolute lymphocyte countOrd ered By: Renard Burgos on 11-04-2024 Lymphocytes Auto (Unsp spec) [#/Vol] 2.18 10*3/uL 0.83-4.51 [facility] Absolute neutrophil countOrd ered By: Renard Burgos on 11-04-2024 Neutrophils (Bld) [#/Vol] 4.8 10*3/uL 2.0-7.7 [facility] Automated lymphocyte count a s percentage of total leukocytesOrdered By: Renard Burgos on 11-04-2024 Lymphocytes/100 WBC Auto (Unsp spec) 28.1 % 19-41 [facility] Basophil percentageOrdered B y: Renard Burgos on 11-04-2024 Basophils/100 WBC (Bld) 0.6 % 0-1 [facility] CBC W/Diff, Automatedon 07-0 PLT EST A Normal ADEQ [facility] Comment on above: Order Comment: 109 Performed By: #### L 100.0100 ####[facility] [address] [place], [address] PLT MORPH CLUMPED Normal [facility] Comment on above: Order Comment: 109 Performed By: #### L 100.0100 ####[facility] [address] [place], [address] Eosinophil percentageOrdered By: Renard Burgos on 11-04-2024 Eosinophils/100 WBC (Bld) 0.8 % 0-5 [facility] Erythrocyte distribution wid th ratioOrdered By: Renard Burgos on 11-04-2024 Erythrocyte distribution width (RBC) [Ratio] 13.3 % 11.6-14.6 [facility] Erythrocyte distribution wid th standard deviationOrdered By: Renard Burgos on 11-04-2024 Erythrocyte distribution width (RBC) [Ratio] 45.0 fl High 35.1-43.9 [facility] Hematocrit Auto (Bld) [Volum e fraction]Ordered By: Renard Burgos on 11-04-2024 Hematocrit (Bld) [Volume fraction] 42.8 % 40-54 [facility] Hemoglobin measurementOrdere d By: Renard Burgos on 11-04-2024 Hemoglobin (Bld) [Mass/Vol] 14.0 g/dL 13.0-16.5 [facility] Immature granulocytes/100 WB C Auto (Bld)Ordered By: Renard Burgos on 11-04-2024 Immature granulocytes/100 WBC (Bld) 0.400 % 0.0-0.9 [facility] Comment on above: IG% - Immature Granu locytes (promyelocytes, myelocytes and metamyelocytes) > 1% indicates that a LEFT SHIFT is Present. MCV (mean corpuscular volume ) determinationOrdered By: Renard Burgos on 11-04-2024 MCV (RBC) [Entitic vol] 92.4 fL 80-94 [facility] Mean corpuscular hemoglobin (MCH) determinationOrdered By: Renard Burgos on 11-04-2024 MCH (RBC) [Entitic mass] 30.2 pg 27.0-32.0 [facility] Mean corpuscular hemoglobin concentration (MCHC) determinationOrdered By: Renard Burgos on 11-04-2024 MCHC (RBC) [Mass/Vol] 32.7 g/dL 32-36 [facility] Mean platelet volume determi nationOrdered By: Renard Burgos on 11-04-2024 Platelet mean volume (Bld) [Entitic vol] 11.6 fL 6.2-12.0 [facility] Monocyte percentageOrdered B y: Renard Burgos on 11-04-2024 Monocytes/100 WBC (Bld) 8.4 % 0-10 [facility] Neutrophil percentageOrdered By: Renard Burgos on 11-04-2024 Neutrophils/100 WBC (Bld) 61.7 % 47-70 [facility] Nucleated red blood cell per centageOrdered By: Renard Burgos on 11-04-2024 Nucleated RBC/100 WBC (Bld) [Ratio] 0 % 0-5 [facility] Platelet countOrdered By: Garrick Bhatt on 11-04-2024 Platelet count TNP [facility] Comment on above: Test not performed Platelet estimateOrdered By: Renard Burgos on 11-04-2024 Platelets LM Ql (Bld) A ADEQ [facility] Platelet morphologyOrdered B y: Renard Burgos on 11-04-2024 Platelet morphology finding Nom (Bld) CLUMPED [facility] RBC Auto (Bld) [#/Vol]Ordere d By: Renard Burgos on 11-04-2024 RBC (Bld) [#/Vol] 4.63 10*6/uL 4.6-6.2 [facility] White blood cell (WBC) count Ordered By: Renard Burgos on 11-04-2024 WBC (Bld) [#/Vol] 7.8 10*3/uL 4.4-11.0 [facility] Absolute lymphocyte countOrd ered By: Renard Burgos on 10-28-2024 Lymphocytes Auto (Unsp spec) [#/Vol] 1.72 10*3/uL 0.83-4.51 [facility] Absolute neutrophil countOrd ered By: Renard Hensleyrustam on 10-28-2024 Neutrophils (Bld) [#/Vol] 5.0 10*3/uL 2.0-7.7 [facility] Automated lymphocyte count a s percentage of total leukocytesOrdered By: Renard Burgos on 10-28-2024 Lymphocytes/100 WBC Auto (Unsp spec) 22.9 % 19-41 [facility] Basophil percentageOrdered B y: Renard Burgos on 10-28-2024 Basophils/100 WBC (Bld) 0.7 % 0-1 [facility] CBC W/Diff, Automatedon 10-01-2024 Absolute Lymph 1.72 X10 3/uL Normal 0.83-4.51 [facility] Comment on above: Order Comment: 109-1 Performed By: #### L 100.0100 ####[facility] [address] [place], [address] Absolute Neut 5.0 X10 3/uL Normal 2.0-7.7 [facility] Comment on above: Order Comment: 109-1 Performed By: #### L 100.0100 ####[facility] [address] [place], [address] Basophils/100 WBC (Bld) 0.7 % Normal 0-1 [facility] Comment on above: Order Comment: 109-1 Performed By: #### L 100.0100 ####[facility] [address] [place], [address] Eosinophils/100 WBC (Bld) 1.2 % Normal 0-5 [facility] Comment on above: Order Comment: 109-1 Performed By: #### L 100.0100 ####[facility] [address] [place], [address] Erythrocyte distribution width (RBC) [Ratio] 13.2 % Normal 11.6-14.6 [facility] Comment on above: Order Comment: 109-1 Performed By: #### L 100.0100 ####[facility] [address] [place], [address] Hematocrit (Bld) [Volume fraction] 37.3 % Low 40-54 [facility] Comment on above: Order Comment: 109-1 Performed By: #### L 100.0100 ####[facility] [address] [place], [address] Hemoglobin (Bld) [Mass/Vol] 12.3 g/dL Low 13.0-16.5 [facility] Comment on above: Order Comment: 109-1 Performed By: #### L 100.0100 ####[facility] [address] [place], [address] IG% 0.100 Normal 0.0-0.9 [facility] Comment on above: Order Comment: 109-1 Result Comment: IG% - Immature Granulocytes (promyelocytes, myelocytes andmetamyelocytes) > 1% indicates that a LEFT SHIFT is Present. Performed By: #### L 100.0100 ####[facility] [address] [place], [address] Lymphocytes/100 WBC (Bld) 22.9 % Normal 19-41 [facility] Comment on above: Order Comment: 109-1 Performed By: #### L 100.0100 ####[facility] [address] [place], [address] MCH (RBC) [Entitic mass] 30.1 pg Normal 27.0-32.0 [facility] Comment on above: Order Comment: 109-1 Performed By: #### L 100.0100 ####[facility] [address] [place], [address] MCHC (RBC) [Mass/Vol] 33.0 g/dL Normal 32-36 [facility] Comment on above: Order Comment: 109-1 Performed By: #### L 100.0100 ####[facility] [address] [place], [address] MCV (RBC) [Entitic vol] 91.4 fL Normal 80-94 [facility] Comment on above: Order Comment: 109-1 Performed By: #### L 100.0100 ####[facility] [address] [place], [address] Monocytes/100 WBC (Bld) 8.1 % Normal 0-10 [facility] Comment on above: Order Comment: 109-1 Performed By: #### L 100.0100 ####[facility] [address] [place], [address] Neutrophils/100 WBC (Bld) 67.0 % Normal 47-70 [facility] Comment on above: Order Comment: 109-1 Performed By: #### L 100.0100 ####[facility] [address], [address] Nucleated RBC (Bld) [#/Vol] 0 10*3/uL Normal 0-5 [facility] Comment on above: Order Comment: 109-1 Performed By: #### L 100.0100 ####[facility] [address] [place], [address] Platelet mean volume (Bld) [Entitic vol] 11.3 fL Normal 6.2-12.0 [facility] Comment on above: Order Comment: 109-1 Performed By: #### L 100.0100 ####[facility] [address] [place], [address] Platelets (Bld) [#/Vol] 201 10*3/uL Normal 150-450 [facility] Comment on above: Order Comment: 109-1 Performed By: #### L 100.0100 ####[facility] [address] [place], [address] RBC (Bld) [#/Vol] 4.08 10*6/uL Low 4.6-6.2 [facility] Comment on above: Order Comment: 109-1 Performed By: #### L 100.0100 ####[facility] [address] [place], [address] RDW SD 44.0 fl High 35.1-43.9 [facility] Comment on above: Order Comment: 109-1 Performed By: #### L 100.0100 ####[facility] [address] [place], [address] WBC (Bld) [#/Vol] 7.5 10*3/uL Normal 4.4-11.0 [facility] Comment on above: Order Comment: 109-1 Performed By: #### L 100.0100 ####[facility] [address] [place], [address] Eosinophil percentageOrdered By: Renard Burgos on 10-28-2024 Eosinophils/100 WBC (Bld) 1.2 % 0-5 [facility] Erythrocyte distribution wid th ratioOrdered By: Renard Burgos on 10-28-2024 Erythrocyte distribution width (RBC) [Ratio] 13.2 % 11.6-14.6 [facility] Erythrocyte distribution wid th standard deviationOrdered By: Renard Burgos on 10-28-2024 Erythrocyte distribution width (RBC) [Ratio] 44.0 fl High 35.1-43.9 [facility] Hematocrit Auto (Bld) [Volum e fraction]Ordered By: Renard Burgos on 10-28-2024 Hematocrit (Bld) [Volume fraction] 37.3 % Low 40-54 [facility] Hemoglobin measurementOrdere d By: Renard Burgos on 10-28-2024 Hemoglobin (Bld) [Mass/Vol] 12.3 g/dL Low 13.0-16.5 [facility] Immature granulocytes/100 WB C Auto (Bld)Ordered By: Renard Burgos on 10-28-2024 Immature granulocytes/100 WBC (Bld) 0.100 % 0.0-0.9 [facility] Comment on above: IG% - Immature Granu locytes (promyelocytes, myelocytes and metamyelocytes) > 1% indicates that a LEFT SHIFT is Present. MCV (mean corpuscular volume ) determinationOrdered By: Renard Burgos on 10-28-2024 MCV (RBC) [Entitic vol] 91.4 fL 80-94 [facility] Mean corpuscular hemoglobin (MCH) determinationOrdered By: Renard Burgos on 10-28-2024 MCH (RBC) [Entitic mass] 30.1 pg 27.0-32.0 [facility] Mean corpuscular hemoglobin concentration (MCHC) determinationOrdered By: Renard Burgos on 10-28-2024 MCHC (RBC) [Mass/Vol] 33.0 g/dL 32-36 [facility] Mean platelet volume determi nationOrdered By: Renard Burgos on 10-28-2024 Platelet mean volume (Bld) [Entitic vol] 11.3 fL 6.2-12.0 [facility] Monocyte percentageOrdered B y: Renard Burgos on 10-28-2024 Monocytes/100 WBC (Bld) 8.1 % 0-10 [facility] Neutrophil percentageOrdered By: Renard Burgos on 10-28-2024 Neutrophils/100 WBC (Bld) 67.0 % 47-70 [facility] Nucleated red blood cell per centageOrdered By: Renard Burgos on 10-28-2024 Nucleated RBC/100 WBC (Bld) [Ratio] 0 % 0-5 [facility] Platelet countOrdered By: Garrick Bhatt on 10-28-2024 Platelets (Bld) [#/Vol] 201 10*3/uL 150-450 [facility] RBC Auto (Bld) [#/Vol]Ordere d By: Renard Burgos on 10-28-2024 RBC (Bld) [#/Vol] 4.08 10*6/uL Low 4.6-6.2 [facility] White blood cell (WBC) count Ordered By: Renard Burgos on 10-28-2024 WBC (Bld) [#/Vol] 7.5 10*3/uL 4.4-11.0 [facility] Absolute lymphocyte countOrd ered By: Renard Hensleyrustam on 10-21-2024 Lymphocytes Auto (Unsp spec) [#/Vol] 2.41 10*3/uL 0.83-4.51 [facility] Absolute neutrophil countOrd ered By: Renard Shellierustam on 10-21-2024 Neutrophils (Bld) [#/Vol] 5.2 10*3/uL 2.0-7.7 [facility] Automated lymphocyte count a s percentage of total leukocytesOrdered By: Renard Burgos on 10-21-2024 Lymphocytes/100 WBC Auto (Unsp spec) 28.2 % 19- [facility] Basophil percentageOrdered B y: Renard Burgos on 10-21-2024 Basophils/100 WBC (Bld) 0.6 % 0-1 [facility] CBC W/Diff, Automatedon 09-30 Absolute Lymph 2.41 X10 3/uL Normal 0.83-4.51 [facility] Comment on above: Order Comment: 109 Performed By: #### L 100.0100 ####[facility] [address] [place], [address] Absolute Neut 5.2 X10 3/uL Normal 2.0-7.7 [facility] Comment on above: Order Comment: 109 Performed By: #### L 100.0100 ####[facility] [address] [place], [address] Basophils/100 WBC (Bld) 0.6 % Normal 0-1 [facility] Comment on above: Order Comment: 109 Performed By: #### L 100.0100 ####[facility] [address] [place], [address] Eosinophils/100 WBC (Bld) 0.8 % Normal 0-5 [facility] Comment on above: Order Comment: 109 Performed By: #### L 100.0100 ####[facility] [address] [place], [address] Erythrocyte distribution width (RBC) [Ratio] 13.3 % Normal 11.6-14.6 [facility] Comment on above: Order Comment: 109 Performed By: #### L 100.0100 ####[facility] [address] [place], [address] Hematocrit (Bld) [Volume fraction] 38.9 % Low 40-54 [facility] Comment on above: Order Comment: 109 Performed By: #### L 100.0100 ####[facility] [address] [place], [address] Hemoglobin (Bld) [Mass/Vol] 12.8 g/dL Low 13.0-16.5 [facility] Comment on above: Order Comment: 109 Performed By: #### L 100.0100 ####[facility] [address] [place], [address] IG% 0.400 Normal 0.0-0.9 [facility] Comment on above: Order Comment: 109 Result Comment: IG% - Immature Granulocytes (promyelocytes, myelocytes andmetamyelocytes) > 1% indicates that a LEFT SHIFT is Present. Performed By: #### L 100.0100 ####[facility] [address] [place], [address] Lymphocytes/100 WBC (Bld) 28.2 % Normal 19-41 [facility] Comment on above: Order Comment: 109 Performed By: #### L 100.0100 ####[facility] [address] [place], [address] MCH (RBC) [Entitic mass] 30.1 pg Normal 27.0-32.0 [facility] Comment on above: Order Comment: 109 Performed By: #### L 100.0100 ####[facility] [address] [place], [address] MCHC (RBC) [Mass/Vol] 32.9 g/dL Normal 32-36 [facility] Comment on above: Order Comment: 109 Performed By: #### L 100.0100 ####[facility] [address] [place], [address] MCV (RBC) [Entitic vol] 91.5 fL Normal 80-94 [facility] Comment on above: Order Comment: 109 Performed By: #### L 100.0100 ####[facility] [address], [address] Monocytes/100 WBC (Bld) 9.1 % Normal 0-10 [facility] Comment on above: Order Comment: 109 Performed By: #### L 100.0100 ####[facility] [address] [place], [address] Neutrophils/100 WBC (Bld) 60.9 % Normal 47-70 [facility] Comment on above: Order Comment: 109 Performed By: #### L 100.0100 ####[facility] [address] [place], [address] Nucleated RBC (Bld) [#/Vol] 0 10*3/uL Normal 0-5 [facility] Comment on above: Order Comment: 109 Performed By: #### L 100.0100 ####[facility] [address] [place], [address] Platelet mean volume (Bld) [Entitic vol] 11.2 fL Normal 6.2-12.0 [facility] Comment on above: Order Comment: 109 Performed By: #### L 100.0100 ####[facility] [address] [place], [address] Platelets (Bld) [#/Vol] 204 10*3/uL Normal 150-450 [facility] Comment on above: Order Comment: 109 Performed By: #### L 100.0100 ####[facility] [address], [address] RBC (Bld) [#/Vol] 4.25 10*6/uL Low 4.6-6.2 [facility] Comment on above: Order Comment: 109 Performed By: #### L 100.0100 ####[facility] [address] [place], [address] RDW SD 44.5 fl High 35.1-43.9 [facility] Comment on above: Order Comment: 109 Performed By: #### L 100.0100 ####[facility] [address] [place], [address] WBC (Bld) [#/Vol] 8.5 10*3/uL Normal 4.4-11.0 [facility] Comment on above: Order Comment: 109 Performed By: #### L 100.0100 ####[facility] [address] [place], [address] Eosinophil percentageOrdered By: Renard Burgos on 10-21-2024 Eosinophils/100 WBC (Bld) 0.8 % 0-5 [facility] Erythrocyte distribution wid th ratioOrdered By: Renard Burgos on 10-21-2024 Erythrocyte distribution width (RBC) [Ratio] 13.3 % 11.6-14.6 [facility] Erythrocyte distribution wid th standard deviationOrdered By: Renard Burgos on 10-21-2024 Erythrocyte distribution width (RBC) [Ratio] 44.5 fl High 35.1-43.9 [facility] Hematocrit Auto (Bld) [Volum e fraction]Ordered By: Renard Burgos on 10-21-2024 Hematocrit (Bld) [Volume fraction] 38.9 % Low 40-54 [facility] Hemoglobin measurementOrdere d By: Renard Burgos on 10-21-2024 Hemoglobin (Bld) [Mass/Vol] 12.8 g/dL Low 13.0-16.5 [facility] Immature granulocytes/100 WB C Auto (Bld)Ordered By: Renard Burgos on 10-21-2024 Immature granulocytes/100 WBC (Bld) 0.400 % 0.0-0.9 [facility] Comment on above: IG% - Immature Granu locytes (promyelocytes, myelocytes and metamyelocytes) > 1% indicates that a LEFT SHIFT is Present. MCV (mean corpuscular volume ) determinationOrdered By: Renard Burgos on 10-21-2024 MCV (RBC) [Entitic vol] 91.5 fL 80-94 [facility] Mean corpuscular hemoglobin (MCH) determinationOrdered By: Renard Burgos on 10-21-2024 MCH (RBC) [Entitic mass] 30.1 pg 27.0-32.0 [facility] Mean corpuscular hemoglobin concentration (MCHC) determinationOrdered By: Renard Burgos on 10-21-2024 MCHC (RBC) [Mass/Vol] 32.9 g/dL 32-36 [facility] Mean platelet volume determi nationOrdered By: Renard Burgos on 10-21-2024 Platelet mean volume (Bld) [Entitic vol] 11.2 fL 6.2-12.0 [facility] Monocyte percentageOrdered B y: Renard Burgos on 10-21-2024 Monocytes/100 WBC (Bld) 9.1 % 0-10 [facility] Neutrophil percentageOrdered By: Renard Burgos on 10-21-2024 Neutrophils/100 WBC (Bld) 60.9 % 47-70 [facility] Nucleated red blood cell per centageOrdered By: Renard Burgos on 10-21-2024 Nucleated RBC/100 WBC (Bld) [Ratio] 0 % 0-5 [facility] Platelet countOrdered By: Garrick Bhatt on 10-21-2024 Platelets (Bld) [#/Vol] 204 10*3/uL 150-450 [facility] RBC Auto (Bld) [#/Vol]Ordere d By: Renard Burgos on 10-21-2024 RBC (Bld) [#/Vol] 4.25 10*6/uL Low 4.6-6.2 [facility] White blood cell (WBC) count Ordered By: Renard Burgos on 10-21-2024 WBC (Bld) [#/Vol] 8.5 10*3/uL 4.4-11.0 [facility] Absolute lymphocyte countOrd ered By: Renard Burgos on 10-14-2024 Lymphocytes Auto (Unsp spec) [#/Vol] 1.77 10*3/uL 0.83-4.51 [facility] Absolute neutrophil countOrd ered By: Renard Amezquitahola on 10-14-2024 Neutrophils (Bld) [#/Vol] 4.8 10*3/uL 2.0-7.7 [facility] Automated lymphocyte count a s percentage of total leukocytesOrdered By: Renard Burgos on 10-14-2024 Lymphocytes/100 WBC Auto (Unsp spec) 24.2 % 19-41 [facility] Basophil percentageOrdered B y: Renard Burgos on 10-14-2024 Basophils/100 WBC (Bld) 0.7 % 0-1 [facility] CBC W/Diff, Automatedon 09-29-2024 Absolute Lymph 1.77 X10 3/uL Normal 0.83-4.51 [facility] Comment on above: Order Comment: 109 Performed By: #### L 100.0100 ####[facility] [address] [place], [address] Absolute Neut 4.8 X10 3/uL Normal 2.0-7.7 [facility] Comment on above: Order Comment: 109 Performed By: #### L 100.0100 ####[facility] [address] [place], [address] Basophils/100 WBC (Bld) 0.7 % Normal 0-1 [facility] Comment on above: Order Comment: 109 Performed By: #### L 100.0100 ####[facility] [address] [place], [address] Eosinophils/100 WBC (Bld) 0.8 % Normal 0-5 [facility] Comment on above: Order Comment: 109 Performed By: #### L 100.0100 ####[facility] [address] [place], [address] Erythrocyte distribution width (RBC) [Ratio] 13.2 % Normal 11.6-14.6 [facility] Comment on above: Order Comment: 109 Performed By: #### L 100.0100 ####[facility] [address] [place], [address] Hematocrit (Bld) [Volume fraction] 42.7 % Normal 40-54 [facility] Comment on above: Order Comment: 109 Performed By: #### L 100.0100 ####[facility] [address] [place], [address] Hemoglobin (Bld) [Mass/Vol] 13.9 g/dL Normal 13.0-16.5 [facility] Comment on above: Order Comment: 109 Performed By: #### L 100.0100 ####[facility] [address] [place], [address] IG% 0.300 Normal 0.0-0.9 [facility] Comment on above: Order Comment: 109 Result Comment: IG% - Immature Granulocytes (promyelocytes, myelocytes andmetamyelocytes) > 1% indicates that a LEFT SHIFT is Present. Performed By: #### L 100.0100 ####[facility] [address] [place], [address] Lymphocytes/100 WBC (Bld) 24.2 % Normal 19-41 [facility] Comment on above: Order Comment: 109 Performed By: #### L 100.0100 ####[facility] [address] [place], [address] MCH (RBC) [Entitic mass] 29.7 pg Normal 27.0-32.0 [facility] Comment on above: Order Comment: 109 Performed By: #### L 100.0100 ####[facility] [address] [place], [address] MCHC (RBC) [Mass/Vol] 32.6 g/dL Normal 32-36 [facility] Comment on above: Order Comment: 109 Performed By: #### L 100.0100 ####[facility] [address] [place], [address] MCV (RBC) [Entitic vol] 91.2 fL Normal 80-94 [facility] Comment on above: Order Comment: 109 Performed By: #### L 100.0100 ####[facility] [address] [place], [address] Monocytes/100 WBC (Bld) 8.6 % Normal 0-10 [facility] Comment on above: Order Comment: 109 Performed By: #### L 100.0100 ####[facility] [address] [place], [address] Neutrophils/100 WBC (Bld) 65.4 % Normal 47-70 [facility] Comment on above: Order Comment: 109 Performed By: #### L 100.0100 ####[facility] [address] [place], [address] Nucleated RBC (Bld) [#/Vol] 0 10*3/uL Normal 0-5 [facility] Comment on above: Order Comment: 109 Performed By: #### L 100.0100 ####[facility] [address] [place], [address] Platelet mean volume (Bld) [Entitic vol] 11.1 fL Normal 6.2-12.0 [facility] Comment on above: Order Comment: 109 Performed By: #### L 100.0100 ####[facility] [address] [place], [address] Platelets (Bld) [#/Vol] 232 10*3/uL Normal 150-450 [facility] Comment on above: Order Comment: 109 Performed By: #### L 100.0100 ####[facility] [address] [place], [address] RBC (Bld) [#/Vol] 4.68 10*6/uL Normal 4.6-6.2 [facility] Comment on above: Order Comment: 109 Performed By: #### L 100.0100 ####[facility] [address] [place], [address] RDW SD 44.1 fl High 35.1-43.9 [facility] Comment on above: Order Comment: 109 Performed By: #### L 100.0100 ####[facility] [address] [place], [address] WBC (Bld) [#/Vol] 7.3 10*3/uL Normal 4.4-11.0 [facility] Comment on above: Order Comment: 109 Performed By: #### L 100.0100 ####[facility] [address] [facility] [place], [address] Eosinophil percentageOrdered By: Renard Burgos on 10-14-2024 Eosinophils/100 WBC (Bld) 0.8 % 0-5 [facility] Erythrocyte distribution wid th ratioOrdered By: Renard Burgos on 10-14-2024 Erythrocyte distribution width (RBC) [Ratio] 13.2 % 11.6-14.6 [facility] Erythrocyte distribution wid th standard deviationOrdered By: Renard Burgos on 10-14-2024 Erythrocyte distribution width (RBC) [Ratio] 44.1 fl High 35.1-43.9 [facility] Hematocrit Auto (Bld) [Volum e fraction]Ordered By: Renard Burgos on 10-14-2024 Hematocrit (Bld) [Volume fraction] 42.7 % 40-54 [facility] Hemoglobin measurementOrdere d By: Renard Burgos on 10-14-2024 Hemoglobin (Bld) [Mass/Vol] 13.9 g/dL 13.0-16.5 [facility] Immature granulocytes/100 WB C Auto (Bld)Ordered By: Renard Burgos on 10-14-2024 Immature granulocytes/100 WBC (Bld) 0.300 % 0.0-0.9 [facility] Comment on above: IG% - Immature Granu locytes (promyelocytes, myelocytes and metamyelocytes) > 1% indicates that a LEFT SHIFT is Present. MCV (mean corpuscular volume ) determinationOrdered By: Renard Burgos on 10-14-2024 MCV (RBC) [Entitic vol] 91.2 fL 80-94 [facility] Mean corpuscular hemoglobin (MCH) determinationOrdered By: Renard Burgos on 10-14-2024 MCH (RBC) [Entitic mass] 29.7 pg 27.0-32.0 [facility] Mean corpuscular hemoglobin concentration (MCHC) determinationOrdered By: Renard Burgos on 10-14-2024 MCHC (RBC) [Mass/Vol] 32.6 g/dL 32-36 [facility] Mean platelet volume determi nationOrdered By: Renard Burgos on 10-14-2024 Platelet mean volume (Bld) [Entitic vol] 11.1 fL 6.2-12.0 [facility] Monocyte percentageOrdered B y: Renard Burgos on 10-14-2024 Monocytes/100 WBC (Bld) 8.6 % 0-10 [facility] Neutrophil percentageOrdered By: Renard Burgos on 10-14-2024 Neutrophils/100 WBC (Bld) 65.4 % 47-70 [facility] Nucleated red blood cell per centageOrdered By: Renard Burgos on 10-14-2024 Nucleated RBC/100 WBC (Bld) [Ratio] 0 % 0-5 [facility] Platelet countOrdered By: Garrick Bhatt on 10-14-2024 Platelets (Bld) [#/Vol] 232 10*3/uL 150-450 [facility] RBC Auto (Bld) [#/Vol]Ordere d By: Renard Burgos on 10-14-2024 RBC (Bld) [#/Vol] 4.68 10*6/uL 4.6-6.2 [facility] White blood cell (WBC) count Ordered By: Renard Burgos on 10-14-2024 WBC (Bld) [#/Vol] 7.3 10*3/uL 4.4-11.0 [facility] Absolute lymphocyte countOrd ered By: Renard Burgos on 10-07-2024 Lymphocytes Auto (Unsp spec) [#/Vol] 2.20 10*3/uL 0.83-4.51 [facility] Absolute neutrophil countOrd ered By: Renard Burgos on 10-07-2024 Neutrophils (Bld) [#/Vol] 5.1 10*3/uL 2.0-7.7 [facility] Automated lymphocyte count a s percentage of total leukocytesOrdered By: Renard Burgos on 10-07-2024 Lymphocytes/100 WBC Auto (Unsp spec) 27.2 % 19-41 [facility] Basophil percentageOrdered B y: Renard Burgos on 10-07-2024 Basophils/100 WBC (Bld) 0.5 % 0-1 [facility] CBC W/Diff, Automatedon Absolute Lymph 2.20 X10 3/uL Normal 0.83-4.51 [facility] Comment on above: Order Comment: 109-1 Performed By: #### L 100.0100 ####[facility] [address] [place], [address] Absolute Neut 5.1 X10 3/uL Normal 2.0-7.7 [facility] Comment on above: Order Comment: 109-1 Performed By: #### L 100.0100 ####[facility] [address] [place], [address] Basophils/100 WBC (Bld) 0.5 % Normal 0-1 [facility] Comment on above: Order Comment: 109-1 Performed By: #### L 100.0100 ####[facility] [address] [place], [address] Eosinophils/100 WBC (Bld) 0.9 % Normal 0-5 [facility] Comment on above: Order Comment: 109-1 Performed By: #### L 100.0100 ####[facility] [address] [place], [address] Erythrocyte distribution width (RBC) [Ratio] 13.2 % Normal 11.6-14.6 [facility] Comment on above: Order Comment: 109-1 Performed By: #### L 100.0100 ####[facility] [address] [place], [address] Hematocrit (Bld) [Volume fraction] 40.8 % Normal 40-54 [facility] Comment on above: Order Comment: 109-1 Performed By: #### L 100.0100 ####[facility] [address] [place], [address] Hemoglobin (Bld) [Mass/Vol] 13.8 g/dL Normal 13.0-16.5 [facility] Comment on above: Order Comment: 109-1 Performed By: #### L 100.0100 ####[facility] [address] [place], [address] IG% 0.200 Normal 0.0-0.9 [facility] Comment on above: Order Comment: 109-1 Result Comment: IG% - Immature Granulocytes (promyelocytes, myelocytes andmetamyelocytes) > 1% indicates that a LEFT SHIFT is Present. Performed By: #### L 100.0100 ####[facility] [address] [place], [address] Lymphocytes/100 WBC (Bld) 27.2 % Normal 19-41 [facility] Comment on above: Order Comment: 109-1 Performed By: #### L 100.0100 ####[facility] [address] [place], [address] MCH (RBC) [Entitic mass] 30.0 pg Normal 27.0-32.0 [facility] Comment on above: Order Comment: 109-1 Performed By: #### L 100.0100 ####[facility] [address] [place], [address] MCHC (RBC) [Mass/Vol] 33.8 g/dL Normal 32-36 [facility] Comment on above: Order Comment: 109-1 Performed By: #### L 100.0100 ####[facility] [address] [place], [address] MCV (RBC) [Entitic vol] 88.7 fL Normal 80-94 [facility] Comment on above: Order Comment: 109-1 Performed By: #### L 100.0100 ####[facility] [address] [place], [address] Monocytes/100 WBC (Bld) 8.4 % Normal 0-10 [facility] Comment on above: Order Comment: 109-1 Performed By: #### L 100.0100 ####[facility] [address] [place], [address] Neutrophils/100 WBC (Bld) 62.8 % Normal 47-70 [facility] Comment on above: Order Comment: 109-1 Performed By: #### L 100.0100 ####[facility] [address] [place], [address] Nucleated RBC (Bld) [#/Vol] 0 10*3/uL Normal 0-5 [facility] Comment on above: Order Comment: 109-1 Performed By: #### L 100.0100 ####[facility] [address] [place], [address] Platelet mean volume (Bld) [Entitic vol] 11.2 fL Normal 6.2-12.0 [facility] Comment on above: Order Comment: 109-1 Performed By: #### L 100.0100 ####[facility] [address] [place], [address] Platelets (Bld) [#/Vol] 214 10*3/uL Normal 150-450 [facility] Comment on above: Order Comment: 109-1 Performed By: #### L 100.0100 ####[facility] [address] [place], [address] RBC (Bld) [#/Vol] 4.60 10*6/uL Normal 4.6-6.2 [facility] Comment on above: Order Comment: 109-1 Performed By: #### L 100.0100 ####[facility] [address] [place], [address] RDW SD 43.0 fl Normal 35.1-43.9 [facility] Comment on above: Order Comment: 109-1 Performed By: #### L 100.0100 ####[facility] [address] [place], [address] WBC (Bld) [#/Vol] 8.1 10*3/uL Normal 4.4-11.0 [facility] Comment on above: Order Comment: 109-1 Performed By: #### L 100.0100 ####[facility] [address] [place], [address] Eosinophil percentageOrdered By: Renard Burgos on 10-07-2024 Eosinophils/100 WBC (Bld) 0.9 % 0-5 [facility] Erythrocyte distribution wid th ratioOrdered By: Renard Burgos on 10-07-2024 Erythrocyte distribution width (RBC) [Ratio] 13.2 % 11.6-14.6 [facility] Erythrocyte distribution wid th standard deviationOrdered By: Renard Burgos on 10-07-2024 Erythrocyte distribution width (RBC) [Ratio] 43.0 fl 35.1-43.9 [facility] Hematocrit Auto (Bld) [Volum e fraction]Ordered By: Renard Burgos on 10-07-2024 Hematocrit (Bld) [Volume fraction] 40.8 % 40-54 [facility] Hemoglobin measurementOrdere d By: Renard Burgos on 10-07-2024 Hemoglobin (Bld) [Mass/Vol] 13.8 g/dL 13.0-16.5 [facility] Immature granulocytes/100 WB C Auto (Bld)Ordered By: Renard Burgos on 10-07-2024 Immature granulocytes/100 WBC (Bld) 0.200 % 0.0-0.9 [facility] Comment on above: IG% - Immature Granu locytes (promyelocytes, myelocytes and metamyelocytes) > 1% indicates that a LEFT SHIFT is Present. MCV (mean corpuscular volume ) determinationOrdered By: Renard Burgos on 10-07-2024 MCV (RBC) [Entitic vol] 88.7 fL 80-94 [facility] Mean corpuscular hemoglobin (MCH) determinationOrdered By: Renard Burgos on 10-07-2024 MCH (RBC) [Entitic mass] 30.0 pg 27.0-32.0 [facility] Mean corpuscular hemoglobin concentration (MCHC) determinationOrdered By: Renard Burgos on 10-07-2024 MCHC (RBC) [Mass/Vol] 33.8 g/dL 32-36 [facility] Mean platelet volume determi nationOrdered By: Renard Burgos on 10-07-2024 Platelet mean volume (Bld) [Entitic vol] 11.2 fL 6.2-12.0 [facility] Monocyte percentageOrdered B y: Renard Burgos on 10-07-2024 Monocytes/100 WBC (Bld) 8.4 % 0-10 [facility] Neutrophil percentageOrdered By: Renard Burgos on 10-07-2024 Neutrophils/100 WBC (Bld) 62.8 % 47-70 [facility] Nucleated red blood cell per centageOrdered By: Renard Burgos on 10-07-2024 Nucleated RBC/100 WBC (Bld) [Ratio] 0 % 0-5 [facility] Platelet countOrdered By: Garrick Bhatt on 10-07-2024 Platelets (Bld) [#/Vol] 214 10*3/uL 150-450 [facility] RBC Auto (Bld) [#/Vol]Ordere d By: Renard Burgos on 10-07-2024 RBC (Bld) [#/Vol] 4.60 10*6/uL 4.6-6.2 [facility] White blood cell (WBC) count Ordered By: Renard Burgos on 10-07-2024 WBC (Bld) [#/Vol] 8.1 10*3/uL 4.4-11.0 [facility] Absolute lymphocyte countOrd ered By: Renard Burgos on 09-30-2024 Lymphocytes Auto (Unsp spec) [#/Vol] 3.13 10*3/uL 0.83-4.51 [facility] Absolute neutrophil countOrd ered By: Renard Burgos on 09-30-2024 Neutrophils (Bld) [#/Vol] 5.6 10*3/uL 2.0-7.7 [facility] Automated lymphocyte count a s percentage of total leukocytesOrdered By: Renard Burgos on 09-30-2024 Lymphocytes/100 WBC Auto (Unsp spec) 31.7 % 19-41 [facility] Basophil percentageOrdered B y: Renard Burgos on 09-30-2024 Basophils/100 WBC (Bld) 0.6 % 0-1 [facility] CBC W/Diff, Automatedon Absolute Lymph 3.13 X10 3/uL Normal 0.83-4.51 [facility] Comment on above: Order Comment: 109-1 Performed By: #### L 100.0100 ####[facility] [address] [place], [address] Absolute Neut 5.6 X10 3/uL Normal 2.0-7.7 [facility] Comment on above: Order Comment: 109-1 Performed By: #### L 100.0100 ####[facility] [address] [place], [address] Basophils/100 WBC (Bld) 0.6 % Normal 0-1 [facility] Comment on above: Order Comment: 109-1 Performed By: #### L 100.0100 ####[facility] [address] [place], [address] Eosinophils/100 WBC (Bld) 0.7 % Normal 0-5 [facility] Comment on above: Order Comment: 109-1 Performed By: #### L 100.0100 ####[facility] [address] [place], [address] Erythrocyte distribution width (RBC) [Ratio] 13.0 % Normal 11.6-14.6 [facility] Comment on above: Order Comment: 109-1 Performed By: #### L 100.0100 ####[facility] [address] [place], [address] Hematocrit (Bld) [Volume fraction] 46.9 % Normal 40-54 [facility] Comment on above: Order Comment: 109-1 Performed By: #### L 100.0100 ####[facility] [address] [place], [address] Hemoglobin (Bld) [Mass/Vol] 15.3 g/dL Normal 13.0-16.5 [facility] Comment on above: Order Comment: 109-1 Performed By: #### L 100.0100 ####[facility] [address] [place], [address] IG% 0.300 Normal 0.0-0.9 [facility] Comment on above: Order Comment: 109-1 Result Comment: IG% - Immature Granulocytes (promyelocytes, myelocytes andmetamyelocytes) > 1% indicates that a LEFT SHIFT is Present. Performed By: #### L 100.0100 ####[facility] [address] [place], [address] Lymphocytes/100 WBC (Bld) 31.7 % Normal 19-41 [facility] Comment on above: Order Comment: 109-1 Performed By: #### L 100.0100 ####[facility] [address] [place], [address] MCH (RBC) [Entitic mass] 29.7 pg Normal 27.0-32.0 [facility] Comment on above: Order Comment: 109-1 Performed By: #### L 100.0100 ####[facility] [address] [place], [address] MCHC (RBC) [Mass/Vol] 32.6 g/dL Normal 32-36 [facility] Comment on above: Order Comment: 109-1 Performed By: #### L 100.0100 ####[facility] [address] [place], [address] MCV (RBC) [Entitic vol] 91.1 fL Normal 80-94 [facility] Comment on above: Order Comment: 109-1 Performed By: #### L 100.0100 ####[facility] [address] [place], [address] Monocytes/100 WBC (Bld) 10.4 % High 0-10 [facility] Comment on above: Order Comment: 109-1 Performed By: #### L 100.0100 ####[facility] [address] [place], [address] Neutrophils/100 WBC (Bld) 56.3 % Normal 47-70 [facility] Comment on above: Order Comment: 109-1 Performed By: #### L 100.0100 ####[facility] [address] [place], [address] Nucleated RBC (Bld) [#/Vol] 0 10*3/uL Normal 0-5 [facility] Comment on above: Order Comment: 109-1 Performed By: #### L 100.0100 ####[facility] [address] [place], [address] Platelet mean volume (Bld) [Entitic vol] 11.7 fL Normal 6.2-12.0 [facility] Comment on above: Order Comment: 109-1 Performed By: #### L 100.0100 ####[facility] [address] [place], [address] Platelets (Bld) [#/Vol] 208 10*3/uL Normal 150-450 [facility] Comment on above: Order Comment: 109-1 Performed By: #### L 100.0100 ####[facility] [address] [place], [address] RBC (Bld) [#/Vol] 5.15 10*6/uL Normal 4.6-6.2 [facility] Comment on above: Order Comment: 109-1 Performed By: #### L 100.0100 ####[facility] [address] [place], [address] RDW SD 42.7 fl Normal 35.1-43.9 [facility] Comment on above: Order Comment: 109-1 Performed By: #### L 100.0100 ####[facility] [address] [place], [address] WBC (Bld) [#/Vol] 9.9 10*3/uL Normal 4.4-11.0 [facility] Comment on above: Order Comment: 109-1 Performed By: #### L 100.0100 ####[facility] [address] [place], [address] Eosinophil percentageOrdered By: Renard Burgos on 09-30-2024 Eosinophils/100 WBC (Bld) 0.7 % 0-5 [facility] Erythrocyte distribution wid th ratioOrdered By: Renard Burgos on 09-30-2024 Erythrocyte distribution width (RBC) [Ratio] 13.0 % 11.6-14.6 [facility] Erythrocyte distribution wid th standard deviationOrdered By: Renard Burgos on 09-30-2024 Erythrocyte distribution width (RBC) [Ratio] 42.7 fl 35.1-43.9 [facility] Hematocrit Auto (Bld) [Volum e fraction]Ordered By: Renard Burgos on 09-30-2024 Hematocrit (Bld) [Volume fraction] 46.9 % 40-54 [facility] Hemoglobin measurementOrdere d By: Renard Burgos on 09-30-2024 Hemoglobin (Bld) [Mass/Vol] 15.3 g/dL 13.0-16.5 [facility] Immature granulocytes/100 WB C Auto (Bld)Ordered By: Renard Burgos on 09-30-2024 Immature granulocytes/100 WBC (Bld) 0.300 % 0.0-0.9 [facility] Comment on above: IG% - Immature Granu locytes (promyelocytes, myelocytes and metamyelocytes) > 1% indicates that a LEFT SHIFT is Present. MCV (mean corpuscular volume ) determinationOrdered By: Renard Burgos on 09-30-2024 MCV (RBC) [Entitic vol] 91.1 fL 80-94 [facility] Mean corpuscular hemoglobin (MCH) determinationOrdered By: Renard Burgos on 09-30-2024 MCH (RBC) [Entitic mass] 29.7 pg 27.0-32.0 [facility] Mean corpuscular hemoglobin concentration (MCHC) determinationOrdered By: Renard Burgos on 09-30-2024 MCHC (RBC) [Mass/Vol] 32.6 g/dL 32-36 [facility] Mean platelet volume determi nationOrdered By: Renard Burgos on 09-30-2024 Platelet mean volume (Bld) [Entitic vol] 11.7 fL 6.2-12.0 [facility] Monocyte percentageOrdered B y: Renard Burgos on 09-30-2024 Monocytes/100 WBC (Bld) 10.4 % High 0-10 [facility] Neutrophil percentageOrdered By: Renard Burgos on 09-30-2024 Neutrophils/100 WBC (Bld) 56.3 % 47-70 [facility] Nucleated red blood cell per centageOrdered By: Renard Burgos on 09-30-2024 Nucleated RBC/100 WBC (Bld) [Ratio] 0 % 0-5 [facility] Platelet countOrdered By: Garrick Bhatt on 09-30-2024 Platelets (Bld) [#/Vol] 208 10*3/uL 150-450 [facility] RBC Auto (Bld) [#/Vol]Ordere d By: Renard Burgos on 09-30-2024 RBC (Bld) [#/Vol] 5.15 10*6/uL 4.6-6.2 [facility] White blood cell (WBC) count Ordered By: Renard Burgos on 09-30-2024 WBC (Bld) [#/Vol] 9.9 10*3/uL 4.4-11.0 [facility] Absolute lymphocyte countOrd ered By: Renard Burgos on 09-24-2024 Lymphocytes Auto (Unsp spec) [#/Vol] 1.97 10*3/uL 0.83-4.51 [facility] Absolute neutrophil countOrd ered By: Renard Burgos on 09-24-2024 Neutrophils (Bld) [#/Vol] 6.8 10*3/uL 2.0-7.7 [facility] Automated blood erythrocyte countOrdered By: Renard Burgos on 09-24-2024 RBC (Bld) [#/Vol] 4.48 10*6/uL Low 4.6-6.2 [facility] Comment on above: Order Comment: 109 Performed By: #### L 100.0100 ####[facility] [address] [place], [address] Automated blood hematocrit ( percentage)Ordered By: Renard Burgos on 09-24-2024 Hematocrit (Bld) [Volume fraction] 40.4 % Normal 40-54 [facility] Comment on above: Order Comment: 109 Performed By: #### L 100.0100 ####[facility] [address] [place], [place], [address] Automated lymphocyte count a s percentage of total leukocytesOrdered By: Renard Burgos on 09-24-2024 Lymphocytes/100 WBC Auto (Unsp spec) 20.5 % 19-41 [facility] Basophil percentageOrdered B y: Renard Burgos on 09-24-2024 Basophils/100 WBC (Bld) 0.5 % Normal 0-1 [facility] Comment on above: Order Comment: 109 Performed By: #### L 100.0100 ####[facility] [address] [place], [place], [address] CBC W/Diff, Automatedon 08-30 Absolute Lymph 1.97 X10 3/uL Normal 0.83-4.51 [facility] Comment on above: Order Comment: 109 Performed By: #### L 100.0100 ####[facility] [address] [place], [address] Absolute Neut 6.8 X10 3/uL Normal 2.0-7.7 [facility] Comment on above: Order Comment: 109 Performed By: #### L 100.0100 ####[facility] [address] [place], [address] IG% 0.300 Normal 0.0-0.9 [facility] Comment on above: Order Comment: 109 Result Comment: IG% - Immature Granulocytes (promyelocytes, myelocytes andmetamyelocytes) > 1% indicates that a LEFT SHIFT is Present. Performed By: #### L 100.0100 ####[facility] [address] [place], [address] Lymphocytes/100 WBC (Bld) 20.5 % Normal 19-41 [facility] Comment on above: Order Comment: 109 Performed By: #### L 100.0100 ####[facility] [address] [place], [address] Nucleated RBC (Bld) [#/Vol] 0 10*3/uL Normal 0-5 [facility] Comment on above: Order Comment: 109 Performed By: #### L 100.0100 ####[facility] [address] [place], [address] RDW SD 42.9 fl Normal 35.1-43.9 [facility] Comment on above: Order Comment: 109 Performed By: #### L 100.0100 ####[facility] [address] [place], [address] Eosinophil percentageOrdered By: Renard Burgos on 09-24-2024 Eosinophils/100 WBC (Bld) 0.5 % Normal 0-5 [facility] Comment on above: Order Comment: 109 Performed By: #### L 100.0100 ####[facility] [address] [place], [address] Erythrocyte distribution wid th ratioOrdered By: Renard Burgos on 09-24-2024 Erythrocyte distribution width (RBC) [Ratio] 13.1 % Normal 11.6-14.6 [facility] Comment on above: Order Comment: 109 Performed By: #### L 100.0100 ####[facility] [address] [place], [place], [address] Erythrocyte distribution wid th standard deviationOrdered By: Renard Burgos on 09-24-2024 Erythrocyte distribution width (RBC) [Ratio] 42.9 fl 35.1-43.9 [facility] Hemoglobin measurementOrdere d By: Renard Burgos on 09-24-2024 Hemoglobin (Bld) [Mass/Vol] 13.4 g/dL Normal 13.0-16.5 [facility] Comment on above: Order Comment: 109 Performed By: #### L 100.0100 ####[facility] [address] [place], [place], [id number] Immature granulocytes/100 WB C Auto (Bld)Ordered By: Renard Burgos on 09-24-2024 Immature granulocytes/100 WBC (Bld) 0.300 % 0.0-0.9 [facility] Comment on above: IG% - Immature Granu locytes (promyelocytes, myelocytes and metamyelocytes) > 1% indicates that a LEFT SHIFT is Present. MCV (mean corpuscular volume ) determinationOrdered By: Renard Burgos on 09-24-2024 MCV (RBC) [Entitic vol] 90.2 fL Normal 80-94 [facility] Comment on above: Order Comment: 109 Performed By: #### L 100.0100 ####[facility] [address] [place], [place], [id number] Mean corpuscular hemoglobin (MCH) determinationOrdered By: Renard Burgos on 09-24-2024 MCH (RBC) [Entitic mass] 29.9 pg Normal 27.0-32.0 [facility] Comment on above: Order Comment: 109 Performed By: #### L 100.0100 ####[facility] [address] [place], [address] Mean corpuscular hemoglobin concentration (MCHC) determinationOrdered By: Renard Burgos on 09-24-2024 MCHC (RBC) [Mass/Vol] 33.2 g/dL Normal 32-36 [facility] Comment on above: Order Comment: 109 Performed By: #### L 100.0100 ####[facility] [address] [place], [address] Mean platelet volume determi nationOrdered By: Renard Burgos on 09-24-2024 Platelet mean volume (Bld) [Entitic vol] 11.3 fL Normal 6.2-12.0 [facility] Comment on above: Order Comment: 109 Performed By: #### L 100.0100 ####[facility] [address] [place], [address] Monocyte percentageOrdered B y: Renard Burgos on 09-24-2024 Monocytes/100 WBC (Bld) 7.2 % Normal 0-10 [facility] Comment on above: Order Comment: 109 Performed By: #### L 100.0100 ####[facility] [address] [place], [address] Neutrophil percentageOrdered By: Renard Burgos on 09-24-2024 Neutrophils/100 WBC (Bld) 71.0 % High 47-70 [facility] Comment on above: Order Comment: 109 Performed By: #### L 100.0100 ####[facility] [address] [place], [address] Nucleated red blood cell per centageOrdered By: Renard Burgos on 09-24-2024 Nucleated RBC/100 WBC (Bld) [Ratio] 0 % 0-5 [facility] Platelet countOrdered By: Garrick Bhatt on 09-24-2024 Platelets (Bld) [#/Vol] 187 10*3/uL Normal 150-450 [facility] Comment on above: Order Comment: 109 Performed By: #### L 100.0100 ####[facility] [address] [place], [address] White blood cell (WBC) count Ordered By: Renard Burgos on 09-24-2024 WBC (Bld) [#/Vol] 9.6 10*3/uL Normal 4.4-11.0 [facility] Comment on above: Order Comment: 109 Performed By: #### L 100.0100 ####[facility] [address] [place], [address] Absolute lymphocyte countOrd ered By: Renard Burgos on 09-16-2024 Lymphocytes Auto (Unsp spec) [#/Vol] 2.44 10*3/uL 0.83-4.51 [facility] Absolute neutrophil countOrd ered By: Renard Burgos on 09-16-2024 Neutrophils (Bld) [#/Vol] 5.5 10*3/uL 2.0-7.7 [facility] Automated lymphocyte count a s percentage of total leukocytesOrdered By: Renard Burgos on 09-16-2024 Lymphocytes/100 WBC Auto (Unsp spec) 27.7 % - [facility] Basophil percentageOrdered B y: Renard Burgos on 09-16-2024 Basophils/100 WBC (Bld) 0.8 % 0-1 [facility] CBC W/Diff, Automatedon 08-29 Absolute Lymph 2.44 X10 3/uL Normal 0.83-4.51 [facility] Comment on above: Order Comment: 109.1 Performed By: #### L 100.0100 ####[facility] [address] [place], [address] Absolute Neut 5.5 X10 3/uL Normal 2.0-7.7 [facility] Comment on above: Order Comment: 109.1 Performed By: #### L 100.0100 ####[facility] [address] [place], [place], [id number] Basophils/100 WBC (Bld) 0.8 % Normal 0-1 [facility] Comment on above: Order Comment: 109.1 Performed By: #### L 100.0100 ####[facility] [address] [place], [address] Eosinophils/100 WBC (Bld) 0.7 % Normal 0-5 [facility] Comment on above: Order Comment: 109.1 Performed By: #### L 100.0100 ####[facility] [address] [place], [address] Erythrocyte distribution width (RBC) [Ratio] 13.1 % Normal 11.6-14.6 [facility] Comment on above: Order Comment: 109.1 Performed By: #### L 100.0100 ####[facility] [address] [place], [address] Hematocrit (Bld) [Volume fraction] 46.8 % Normal 40-54 [facility] Comment on above: Order Comment: 109.1 Performed By: #### L 100.0100 ####[facility] [address] [place], [address] Hemoglobin (Bld) [Mass/Vol] 15.4 g/dL Normal 13.0-16.5 [facility] Comment on above: Order Comment: 109.1 Performed By: #### L 100.0100 ####[facility] [address] [place], [address] IG% 0.200 Normal 0.0-0.9 [facility] Comment on above: Order Comment: 109.1 Result Comment: IG% - Immature Granulocytes (promyelocytes, myelocytes andmetamyelocytes) > 1% indicates that a LEFT SHIFT is Present. Performed By: #### L 100.0100 ####[facility] [address] [place], [address] Lymphocytes/100 WBC (Bld) 27.7 % Normal 19-41 [facility] Comment on above: Order Comment: 109.1 Performed By: #### L 100.0100 ####[facility] [address] [place], [address] MCH (RBC) [Entitic mass] 30.1 pg Normal 27.0-32.0 [facility] Comment on above: Order Comment: 109.1 Performed By: #### L 100.0100 ####[facility] [address] [place], [address] MCHC (RBC) [Mass/Vol] 32.9 g/dL Normal 32-36 [facility] Comment on above: Order Comment: 109.1 Performed By: #### L 100.0100 ####[facility] [address] [place], [address] MCV (RBC) [Entitic vol] 91.4 fL Normal 80-94 [facility] Comment on above: Order Comment: 109.1 Performed By: #### L 100.0100 ####[facility] [address] [place], [address] Monocytes/100 WBC (Bld) 8.5 % Normal 0-10 [facility] Comment on above: Order Comment: 109.1 Performed By: #### L 100.0100 ####[facility] [address] [place], [address] Neutrophils/100 WBC (Bld) 62.1 % Normal 47-70 [facility] Comment on above: Order Comment: 109.1 Performed By: #### L 100.0100 ####[facility] [address] [place], [address] Nucleated RBC (Bld) [#/Vol] 0 10*3/uL Normal 0-5 [facility] Comment on above: Order Comment: 109.1 Performed By: #### L 100.0100 ####[facility] [address] [place], [address] Platelet mean volume (Bld) [Entitic vol] 10.6 fL Normal 6.2-12.0 [facility] Comment on above: Order Comment: 109.1 Performed By: #### L 100.0100 ####[facility] [address] [place], [address] Platelets (Bld) [#/Vol] 190 10*3/uL Normal 150-450 [facility] Comment on above: Order Comment: 109.1 Performed By: #### L 100.0100 ####[facility] [address] [place], [address] RBC (Bld) [#/Vol] 5.12 10*6/uL Normal 4.6-6.2 [facility] Comment on above: Order Comment: 109.1 Performed By: #### L 100.0100 ####[facility] [address] [place], [address] RDW SD 43.3 fl Normal 35.1-43.9 [facility] Comment on above: Order Comment: 109.1 Performed By: #### L 100.0100 ####[facility] [address] [place], [address] WBC (Bld) [#/Vol] 8.8 10*3/uL Normal 4.4-11.0 [facility] Comment on above: Order Comment: 109.1 Performed By: #### L 100.0100 ####[facility] [address] [place], [address] Eosinophil percentageOrdered By: Renard Burgos on 09-16-2024 Eosinophils/100 WBC (Bld) 0.7 % 0-5 [facility] Erythrocyte distribution wid th ratioOrdered By: Renard Burgos on 09-16-2024 Erythrocyte distribution width (RBC) [Ratio] 13.1 % 11.6-14.6 [facility] Erythrocyte distribution wid th standard deviationOrdered By: Renard Burgos on 09-16-2024 Erythrocyte distribution width (RBC) [Ratio] 43.3 fl 35.1-43.9 [facility] Hematocrit Auto (Bld) [Volum e fraction]Ordered By: Renard Burgos on 09-16-2024 Hematocrit (Bld) [Volume fraction] 46.8 % 40-54 [facility] Hemoglobin measurementOrdere d By: Renard Burgos on 09-16-2024 Hemoglobin (Bld) [Mass/Vol] 15.4 g/dL 13.0-16.5 [facility] Immature granulocytes/100 WB C Auto (Bld)Ordered By: Renard Burgos on 09-16-2024 Immature granulocytes/100 WBC (Bld) 0.200 % 0.0-0.9 [facility] Comment on above: IG% - Immature Granu locytes (promyelocytes, myelocytes and metamyelocytes) > 1% indicates that a LEFT SHIFT is Present. MCV (mean corpuscular volume ) determinationOrdered By: Renard Burgos on 09-16-2024 MCV (RBC) [Entitic vol] 91.4 fL 80-94 [facility] Mean corpuscular hemoglobin (MCH) determinationOrdered By: Renard Burgos on 09-16-2024 MCH (RBC) [Entitic mass] 30.1 pg 27.0-32.0 [facility] Mean corpuscular hemoglobin concentration (MCHC) determinationOrdered By: Renard Burgos on 09-16-2024 MCHC (RBC) [Mass/Vol] 32.9 g/dL 32-36 [facility] Mean platelet volume determi nationOrdered By: Renard Burgos on 09-16-2024 Platelet mean volume (Bld) [Entitic vol] 10.6 fL 6.2-12.0 [facility] Monocyte percentageOrdered B y: Renard Burgos on 09-16-2024 Monocytes/100 WBC (Bld) 8.5 % 0-10 [facility] Neutrophil percentageOrdered By: Renard Burgos on 09-16-2024 Neutrophils/100 WBC (Bld) 62.1 % 47-70 [facility] Nucleated red blood cell per centageOrdered By: Renard Burgos on 09-16-2024 Nucleated RBC/100 WBC (Bld) [Ratio] 0 % 0-5 [facility] Platelet countOrdered By: Garrick Bhatt on 09-16-2024 Platelets (Bld) [#/Vol] 190 10*3/uL 150-450 [facility] RBC Auto (Bld) [#/Vol]Ordere d By: Renard Burgos on 09-16-2024 RBC (Bld) [#/Vol] 5.12 10*6/uL 4.6-6.2 [facility] White blood cell (WBC) count Ordered By: Renard Burgos on 09-16-2024 WBC (Bld) [#/Vol] 8.8 10*3/uL 4.4-11.0 [facility] Anion gap in Serum or Plasma Ordered By: eRnard Burgos on 09-11-2024 Anion gap [Moles/Vol] 11 mmol/L 5-15 [facility] Automated blood erythrocyte countOrdered By: Renard Burgos on 09-11-2024 RBC (Bld) [#/Vol] 4.67 10*6/uL Normal 4.6-6.2 [facility] Comment on above: Order Comment: 109-1 Performed By: #### L 100.0500, L500.2500 ####[facility] [address] [place], [address] Automated blood hematocrit ( percentage)Ordered By: Renard Burgos on 09-11-2024 Hematocrit (Bld) [Volume fraction] 42.7 % Normal 40-54 [facility] Comment on above: Order Comment: 109-1 Performed By: #### L 100.0500, L500.2500 ####[facility] [address] [place], [address] BUN/creatinine ratioOrdered By: Renard Burgos on 09-11-2024 Urea nitrogen/Creatinine [Mass ratio] 23.0 mg/mg High 10 [facility] Basic Metabolic Profile (BMP )on 09-11-2024 BUN/CRE 23.0 RATIO High [facility] Comment on above: Order Comment: 109-1 Performed By: #### L 100.0500, L500.2500 ####[facility] [address] [place], [address] Calcium [Mass/Vol] 8.7 mg/dL Normal 7.6-11.0 [facility] Comment on above: Order Comment: 109-1 Performed By: #### L 100.0500, L500.2500 ####[facility] [address] [place], [address] Chloride [Moles/Vol] 104 mmol/L Normal 98-108 [facility] Comment on above: Order Comment: 109-1 Performed By: #### L 100.0500, L500.2500 ####[facility] [address] [place], [address] CO2 [Moles/Vol] 25.9 mmol/L Normal 21.0-32.0 [facility] Comment on above: Order Comment: 109-1 Performed By: #### L 100.0500, L500.2500 ####[facility] [address] [place], [address] Creatinine [Mass/Vol] 0.58 mg/dL Low 0.70-1.20 [facility] Comment on above: Order Comment: 109-1 Performed By: #### L 100.0500, L500.2500 ####[facility] [address] [place], [address] GAP 11 Normal 5-15 [facility] Comment on above: Order Comment: 109-1 Performed By: #### L 100.0500, L500.2500 ####[facility] [address] [place], [address] GFR/1.73 sq M.predicted among non-blacks MDRD (S/P/Bld) [Vol rate/Area] 107 mL/min/{1.73_m2} Normal >60 [facility] Comment on above: Order Comment: 109-1 Result Comment: mL/m in/1.73m2 CKD-EPI Creatinine Equation (2020) Performed By: #### L 100.0500, L500.2500 ####[facility] [address] [place], [address] Glucose [Mass/Vol] 113 mg/dL High 70-99 [facility] Comment on above: Order Comment: 109-1 Performed By: #### L 100.0500, L500.2500 ####[facility] [address] [place], [address] Potassium [Moles/Vol] 3.8 mmol/L Normal 3.3-5.1 [facility] Comment on above: Order Comment: 109-1 Performed By: #### L 100.0500, L500.2500 ####[facility] [address] [place], [address] Sodium [Moles/Vol] 141 mmol/L Normal 133-145 [facility] Comment on above: Order Comment: 109-1 Performed By: #### L 100.0500, L500.2500 ####[facility] [address] [place], [address] Urea nitrogen [Mass/Vol] 13 mg/dL Normal 4-19 [facility] Comment on above: Order Comment: 109-1 Performed By: #### L 100.0500, L500.2500 ####[facility] [address] [place], [address] CBC-Complete Blood Cnt No Di ffon 09-11-2024 RDW SD 43.7 fl Normal 35.1-43.9 [facility] Comment on above: Order Comment: 109-1 Performed By: #### L 100.0500, L500.2500 ####[facility] [address] [place], [address] Carbon dioxide, total [Moles /volume] in Central venous bloodOrdered By: Renard Burgos on 09-11-2024 CO2 [Moles/Vol] 25.9 mmol/L 21.0-32.0 [facility] Chloride assayOrdered By: Garrick Bhatt on 09-11-2024 Chloride [Moles/Vol] 104 mmol/L 98-108 [facility] Erythrocyte distribution wid th ratioOrdered By: Renard Burgos on 09-11-2024 Erythrocyte distribution width (RBC) [Ratio] 13.2 % Normal 11.6-14.6 [facility] Comment on above: Order Comment: 109-1 Performed By: #### L 100.0500, L500.2500 ####[facility] [address] [place], [address] Erythrocyte distribution wid th standard deviationOrdered By: Renard Burgos on 09-11-2024 Erythrocyte distribution width (RBC) [Ratio] 43.7 fl 35.1-43.9 [facility] Glomerular filtration rate ( GFR) estimation/1.73 sq m using serum, plasma, or whole bOrdered By: Renard Burgos on 09-11-2024 GFR/1.73 sq M.predicted among non-blacks MDRD (S/P/Bld) [Vol rate/Area] 107 mL/min/{1.73_m2} >60 [facility] Comment on above: mL/min/1.73m2 CKD-EP I Creatinine Equation (2020) Hemoglobin measurementOrdere d By: Renard Burgos on 09-11-2024 Hemoglobin (Bld) [Mass/Vol] 14.0 g/dL Normal 13.0-16.5 [facility] Comment on above: Order Comment: 109-1 Performed By: #### L 100.0500, L500.2500 ####[facility] [address] [place], [address] MCV (mean corpuscular volume ) determinationOrdered By: Renard Burgos on 09-11-2024 MCV (RBC) [Entitic vol] 91.4 fL Normal 80-94 [facility] Comment on above: Order Comment: 109-1 Performed By: #### L 100.0500, L500.2500 ####[facility] [address] [place], [address] Mean corpuscular hemoglobin (MCH) determinationOrdered By: Renard Burgos on 09-11-2024 MCH (RBC) [Entitic mass] 30.0 pg Normal 27.0-32.0 [facility] Comment on above: Order Comment: 109-1 Performed By: #### L 100.0500, L500.2500 ####[facility] [address] [place], [address] Mean corpuscular hemoglobin concentration (MCHC) determinationOrdered By: Renard Burgos on 09-11-2024 MCHC (RBC) [Mass/Vol] 32.8 g/dL Normal 32-36 [facility] Comment on above: Order Comment: 109-1 Performed By: #### L 100.0500, L500.2500 ####[facility] [address] [place], [address] Mean platelet volume determi nationOrdered By: Renard Burgos on 09-11-2024 Platelet mean volume (Bld) [Entitic vol] 11.3 fL Normal 6.2-12.0 [facility] Comment on above: Order Comment: 109-1 Performed By: #### L 100.0500, L500.2500 ####[facility] [address] [place], [address] Platelet countOrdered By: Garrick Bhatt on 09-11-2024 Platelets (Bld) [#/Vol] 191 10*3/uL Normal 150-450 [facility] Comment on above: Order Comment: 109-1 Performed By: #### L 100.0500, L500.2500 ####[facility] [address] [place], [address] Potassium measurement (mass/ volume)Ordered By: Renard Burgos on 09-11-2024 Potassium (Unsp spec) [Mass/Vol] 3.8 mmol/L 3.3-5.1 [facility] Serum creatinine measurement (mass/volume)Ordered By: Renard Burgos on 09-11-2024 Creatinine [Mass/Vol] 0.58 mg/dL Low 0.70-1.20 [facility] Serum glucose measurement (m ass/volume)Ordered By: Renard Burgos on 09-11-2024 Glucose [Mass/Vol] 113 mg/dL High 70-99 [facility] Serum or plasma calcium gordy urement (mass/volume)Ordered By: Renard Burgos on 09-11-2024 Calcium [Mass/Vol] 8.7 mg/dL 7.6-11.0 [facility] Serum or plasma urea nitroge n measurement (mass/volume)Ordered By: Renard Burgos on 09-11-2024 Urea nitrogen [Mass/Vol] 13 mg/dL 4-19 [facility] Sodium levelOrdered By: Lamine Burgos on 09-11-2024 Sodium [Moles/Vol] 141 mmol/L 133-145 [facility] White blood cell (WBC) count Ordered By: Renard Burgos on 09-11-2024 WBC (Bld) [#/Vol] 7.6 10*3/uL Normal 4.4-11.0 [facility] Comment on above: Order Comment: 109-1 Performed By: #### L 100.0500, L500.2500 ####[facility] [address] [place], [place], [address] Absolute lymphocyte countOrd ered By: Renard Burgos on 09-09-2024 Lymphocytes Auto (Unsp spec) [#/Vol] 2.24 10*3/uL 0.83-4.51 [facility] Absolute neutrophil countOrd ered By: Renard Burgos on 09-09-2024 Neutrophils (Bld) [#/Vol] 8.7 10*3/uL High 2.0-7.7 [facility] Automated lymphocyte count a s percentage of total leukocytesOrdered By: Renard Burgos on 09-09-2024 Lymphocytes/100 WBC Auto (Unsp spec) 19.1 % - [facility] Basophil percentageOrdered B y: Renard Burgos on 09-09-2024 Basophils/100 WBC (Bld) 0.4 % 0-1 [facility] CBC W/Diff, Automatedon 08-29 Absolute Lymph 2.24 X10 3/uL Normal 0.83-4.51 [facility] Comment on above: Order Comment: 109-1 Performed By: #### L 100.0100 ####[facility] [address] [place], [address] Absolute Neut 8.7 X10 3/uL High 2.0-7.7 [facility] Comment on above: Order Comment: 109-1 Performed By: #### L 100.0100 ####[facility] [address] [place], [address] Basophils/100 WBC (Bld) 0.4 % Normal 0-1 [facility] Comment on above: Order Comment: 109-1 Performed By: #### L 100.0100 ####[facility] [address] [place], [address] Eosinophils/100 WBC (Bld) 0.5 % Normal 0-5 [facility] Comment on above: Order Comment: 109-1 Performed By: #### L 100.0100 ####[facility] [address] [place], [address] Erythrocyte distribution width (RBC) [Ratio] 13.0 % Normal 11.6-14.6 [facility] Comment on above: Order Comment: 109-1 Performed By: #### L 100.0100 ####[facility] [address] [place], [address] Hematocrit (Bld) [Volume fraction] 44.7 % Normal 40-54 [facility] Comment on above: Order Comment: 109-1 Performed By: #### L 100.0100 ####[facility] [address] [place], [address] Hemoglobin (Bld) [Mass/Vol] 14.6 g/dL Normal 13.0-16.5 [facility] Comment on above: Order Comment: 109-1 Performed By: #### L 100.0100 ####[facility] [address] [place], [address] IG% 0.300 Normal 0.0-0.9 [facility] Comment on above: Order Comment: 109-1 Result Comment: IG% - Immature Granulocytes (promyelocytes, myelocytes andmetamyelocytes) > 1% indicates that a LEFT SHIFT is Present. Performed By: #### L 100.0100 ####[facility] [address] [place], [address] Lymphocytes/100 WBC (Bld) 19.1 % Normal 19-41 [facility] Comment on above: Order Comment: 109-1 Performed By: #### L 100.0100 ####[facility] [address] [place], [address] MCH (RBC) [Entitic mass] 30.1 pg Normal 27.0-32.0 [facility] Comment on above: Order Comment: 109-1 Performed By: #### L 100.0100 ####[facility] [address] [place], [address] MCHC (RBC) [Mass/Vol] 32.7 g/dL Normal 32-36 [facility] Comment on above: Order Comment: 109-1 Performed By: #### L 100.0100 ####[facility] [address] [place], [address] MCV (RBC) [Entitic vol] 92.2 fL Normal 80-94 [facility] Comment on above: Order Comment: 109-1 Performed By: #### L 100.0100 ####[facility] [address] [place], [address] Monocytes/100 WBC (Bld) 5.1 % Normal 0-10 [facility] Comment on above: Order Comment: 109-1 Performed By: #### L 100.0100 ####[facility] [address] [place], [address] Neutrophils/100 WBC (Bld) 74.6 % High 47-70 [facility] Comment on above: Order Comment: 109-1 Performed By: #### L 100.0100 ####[facility] [address] [place], [address] Nucleated RBC (Bld) [#/Vol] 0 10*3/uL Normal 0-5 [facility] Comment on above: Order Comment: 109-1 Performed By: #### L 100.0100 ####[facility] [address] [place], [address] Platelet mean volume (Bld) [Entitic vol] 11.6 fL Normal 6.2-12.0 [facility] Comment on above: Order Comment: 109-1 Performed By: #### L 100.0100 ####[facility] [address] [place], [address] Platelets (Bld) [#/Vol] 189 10*3/uL Normal 150-450 [facility] Comment on above: Order Comment: 109-1 Performed By: #### L 100.0100 ####[facility] [address] [place], [address] RBC (Bld) [#/Vol] 4.85 10*6/uL Normal 4.6-6.2 [facility] Comment on above: Order Comment: 109-1 Performed By: #### L 100.0100 ####[facility] [address] [place], [address] RDW SD 43.8 fl Normal 35.1-43.9 [facility] Comment on above: Order Comment: 109-1 Performed By: #### L 100.0100 ####[facility] [address] [place], [address] WBC (Bld) [#/Vol] 11.7 10*3/uL High 4.4-11.0 [facility] Comment on above: Order Comment: 109-1 Performed By: #### L 100.0100 ####[facility] [address] [place], [address] Eosinophil percentageOrdered By: Renard Burgos on 09-09-2024 Eosinophils/100 WBC (Bld) 0.5 % 0-5 [facility] Erythrocyte distribution wid th ratioOrdered By: Renard Burgos on 09-09-2024 Erythrocyte distribution width (RBC) [Ratio] 13.0 % 11.6-14.6 [facility] Erythrocyte distribution wid th standard deviationOrdered By: Renard Burgos on 09-09-2024 Erythrocyte distribution width (RBC) [Ratio] 43.8 fl 35.1-43.9 [facility] Hematocrit Auto (Bld) [Volum e fraction]Ordered By: Renard Burgos on 09-09-2024 Hematocrit (Bld) [Volume fraction] 44.7 % 40-54 [facility] Hemoglobin measurementOrdere d By: Renard Burgos on 09-09-2024 Hemoglobin (Bld) [Mass/Vol] 14.6 g/dL 13.0-16.5 [facility] Immature granulocytes/100 WB C Auto (Bld)Ordered By: Renard Burgos on 09-09-2024 Immature granulocytes/100 WBC (Bld) 0.300 % 0.0-0.9 [facility] Comment on above: IG% - Immature Granu locytes (promyelocytes, myelocytes and metamyelocytes) > 1% indicates that a LEFT SHIFT is Present. MCV (mean corpuscular volume ) determinationOrdered By: Renard Burgos on 09-09-2024 MCV (RBC) [Entitic vol] 92.2 fL 80-94 [facility] Mean corpuscular hemoglobin (MCH) determinationOrdered By: Renard Burgos on 09-09-2024 MCH (RBC) [Entitic mass] 30.1 pg 27.0-32.0 [facility] Mean corpuscular hemoglobin concentration (MCHC) determinationOrdered By: Renard Burgos on 09-09-2024 MCHC (RBC) [Mass/Vol] 32.7 g/dL 32-36 [facility] Mean platelet volume determi nationOrdered By: Renard Burgos on 09-09-2024 Platelet mean volume (Bld) [Entitic vol] 11.6 fL 6.2-12.0 [facility] Monocyte percentageOrdered B y: Renard Burgos on 09-09-2024 Monocytes/100 WBC (Bld) 5.1 % 0-10 [facility] Neutrophil percentageOrdered By: Renard Burgos on 09-09-2024 Neutrophils/100 WBC (Bld) 74.6 % High 47-70 [facility] Nucleated red blood cell per centageOrdered By: Renard Burgos on 09-09-2024 Nucleated RBC/100 WBC (Bld) [Ratio] 0 % 0-5 [facility] Platelet countOrdered By: Garrick Bhatt on 09-09-2024 Platelets (Bld) [#/Vol] 189 10*3/uL 150-450 [facility] RBC Auto (Bld) [#/Vol]Ordere d By: Renard Burgos on 09-09-2024 RBC (Bld) [#/Vol] 4.85 10*6/uL 4.6-6.2 [facility] White blood cell (WBC) count Ordered By: Renrad Burgos on 09-09-2024 WBC (Bld) [#/Vol] 11.7 10*3/uL High 4.4-11.0 [facility] Absolute lymphocyte countOrd ered By: Renard Burgos on 09-02-2024 Lymphocytes Auto (Unsp spec) [#/Vol] 2.07 10*3/uL 0.83-4.51 [facility] Absolute neutrophil countOrd ered By: Renard Burgos on 09-02-2024 Neutrophils (Bld) [#/Vol] 5.8 10*3/uL 2.0-7.7 [facility] Automated lymphocyte count a s percentage of total leukocytesOrdered By: Renard Burgos on 09-02-2024 Lymphocytes/100 WBC Auto (Unsp spec) 24.4 % 19-41 [facility] Basophil percentageOrdered B y: Renard Burgos on 09-02-2024 Basophils/100 WBC (Bld) 0.6 % 0-1 [facility] CBC W/Diff, Automatedon Absolute Lymph 2.07 X10 3/uL Normal 0.83-4.51 [facility] Comment on above: Order Comment: 109 Performed By: #### L 100.0100 ####[facility] [address] [place], [address] Absolute Neut 5.8 X10 3/uL Normal 2.0-7.7 [facility] Comment on above: Order Comment: 109 Performed By: #### L 100.0100 ####[facility] [address] [place], [address] Basophils/100 WBC (Bld) 0.6 % Normal 0-1 [facility] Comment on above: Order Comment: 109 Performed By: #### L 100.0100 ####[facility] [address] [place], [address] Eosinophils/100 WBC (Bld) 0.7 % Normal 0-5 [facility] Comment on above: Order Comment: 109 Performed By: #### L 100.0100 ####[facility] [address] [place], [address] Erythrocyte distribution width (RBC) [Ratio] 12.8 % Normal 11.6-14.6 [facility] Comment on above: Order Comment: 109 Performed By: #### L 100.0100 ####[facility] [address] [place], [address] Hematocrit (Bld) [Volume fraction] 44.5 % Normal 40-54 [facility] Comment on above: Order Comment: 109 Performed By: #### L 100.0100 ####[facility] [address] [place], [address] Hemoglobin (Bld) [Mass/Vol] 14.9 g/dL Normal 13.0-16.5 [facility] Comment on above: Order Comment: 109 Performed By: #### L 100.0100 ####[facility] [address] [place], [address] IG% 0.400 Normal 0.0-0.9 [facility] Comment on above: Order Comment: 109 Result Comment: IG% - Immature Granulocytes (promyelocytes, myelocytes andmetamyelocytes) > 1% indicates that a LEFT SHIFT is Present. Performed By: #### L 100.0100 ####[facility] [address] [place], [address] Lymphocytes/100 WBC (Bld) 24.4 % Normal 19-41 [facility] Comment on above: Order Comment: 109 Performed By: #### L 100.0100 ####[facility] [address] [place], [address] MCH (RBC) [Entitic mass] 29.9 pg Normal 27.0-32.0 [facility] Comment on above: Order Comment: 109 Performed By: #### L 100.0100 ####[facility] [address] [place], [address] MCHC (RBC) [Mass/Vol] 33.5 g/dL Normal 32-36 [facility] Comment on above: Order Comment: 109 Performed By: #### L 100.0100 ####[facility] [address] [place], [address] MCV (RBC) [Entitic vol] 89.4 fL Normal 80-94 [facility] Comment on above: Order Comment: 109 Performed By: #### L 100.0100 ####[facility] [address] [place], [address] Monocytes/100 WBC (Bld) 5.4 % Normal 0-10 [facility] Comment on above: Order Comment: 109 Performed By: #### L 100.0100 ####[facility] [address] [place], [address] Neutrophils/100 WBC (Bld) 68.5 % Normal 47-70 [facility] Comment on above: Order Comment: 109 Performed By: #### L 100.0100 ####[facility] [address] [place], [address] Nucleated RBC (Bld) [#/Vol] 0 10*3/uL Normal 0-5 [facility] Comment on above: Order Comment: 109 Performed By: #### L 100.0100 ####[facility] [address] [place], [address] Platelet mean volume (Bld) [Entitic vol] 10.7 fL Normal 6.2-12.0 [facility] Comment on above: Order Comment: 109 Performed By: #### L 100.0100 ####[facility] [address] [place], [address] Platelets (Bld) [#/Vol] 189 10*3/uL Normal 150-450 [facility] Comment on above: Order Comment: 109 Performed By: #### L 100.0100 ####[facility] [address] [place], [address] RBC (Bld) [#/Vol] 4.98 10*6/uL Normal 4.6-6.2 [facility] Comment on above: Order Comment: 109 Performed By: #### L 100.0100 ####[facility] [address] [place], [address] RDW SD 41.7 fl Normal 35.1-43.9 [facility] Comment on above: Order Comment: 109 Performed By: #### L 100.0100 ####[facility] [address] [place], [address] WBC (Bld) [#/Vol] 8.5 10*3/uL Normal 4.4-11.0 [facility] Comment on above: Order Comment: 109 Performed By: #### L 100.0100 ####[facility] [address] [place], [address] Eosinophil percentageOrdered By: Renard Burgos on 09-02-2024 Eosinophils/100 WBC (Bld) 0.7 % 0-5 [facility] Erythrocyte distribution wid th ratioOrdered By: Renard Burgos on 09-02-2024 Erythrocyte distribution width (RBC) [Ratio] 12.8 % 11.6-14.6 [facility] Erythrocyte distribution wid th standard deviationOrdered By: Renard Burgos on 09-02-2024 Erythrocyte distribution width (RBC) [Ratio] 41.7 fl 35.1-43.9 [facility] Hematocrit Auto (Bld) [Volum e fraction]Ordered By: Renard Burgos on 09-02-2024 Hematocrit (Bld) [Volume fraction] 44.5 % 40-54 [facility] Hemoglobin measurementOrdere d By: Renard Burgos on 09-02-2024 Hemoglobin (Bld) [Mass/Vol] 14.9 g/dL 13.0-16.5 [facility] Immature granulocytes/100 WB C Auto (Bld)Ordered By: Renard Burgos on 09-02-2024 Immature granulocytes/100 WBC (Bld) 0.400 % 0.0-0.9 [facility] Comment on above: IG% - Immature Granu locytes (promyelocytes, myelocytes and metamyelocytes) > 1% indicates that a LEFT SHIFT is Present. MCV (mean corpuscular volume ) determinationOrdered By: Renard Burgos on 09-02-2024 MCV (RBC) [Entitic vol] 89.4 fL 80-94 [facility] Mean corpuscular hemoglobin (MCH) determinationOrdered By: Renard Burgos on 09-02-2024 MCH (RBC) [Entitic mass] 29.9 pg 27.0-32.0 [facility] Mean corpuscular hemoglobin concentration (MCHC) determinationOrdered By: Renard Burgos on 09-02-2024 MCHC (RBC) [Mass/Vol] 33.5 g/dL 32-36 [facility] Mean platelet volume determi nationOrdered By: Renard Burgos on 09-02-2024 Platelet mean volume (Bld) [Entitic vol] 10.7 fL 6.2-12.0 [facility] Monocyte percentageOrdered B y: Renard Burgos on 09-02-2024 Monocytes/100 WBC (Bld) 5.4 % 0-10 [facility] Neutrophil percentageOrdered By: Renard Burgos on 09-02-2024 Neutrophils/100 WBC (Bld) 68.5 % 47-70 [facility] Nucleated red blood cell per centageOrdered By: Renard Burgos on 09-02-2024 Nucleated RBC/100 WBC (Bld) [Ratio] 0 % 0-5 [facility] Platelet countOrdered By: Garrick Bhatt on 09-02-2024 Platelets (Bld) [#/Vol] 189 10*3/uL 150-450 [facility] RBC Auto (Bld) [#/Vol]Ordere d By: Renard Burgos on 09-02-2024 RBC (Bld) [#/Vol] 4.98 10*6/uL 4.6-6.2 [facility] White blood cell (WBC) count Ordered By: Renard Burgos on 09-02-2024 WBC (Bld) [#/Vol] 8.5 10*3/uL 4.4-11.0 [facility] Absolute lymphocyte countOrd ered By: Renard Burgos on 08-26-2024 Lymphocytes Auto (Unsp spec) [#/Vol] 2.17 10*3/uL 0.83-4.51 [facility] Absolute neutrophil countOrd ered By: Renard Burgos on 08-26-2024 Neutrophils (Bld) [#/Vol] 5.7 10*3/uL 2.0-7.7 [facility] Automated lymphocyte count a s percentage of total leukocytesOrdered By: Renard Burgos on 08-26-2024 Lymphocytes/100 WBC Auto (Unsp spec) 25.1 % 19-41 [facility] Basophil percentageOrdered B y: Renard Burgos on 08-26-2024 Basophils/100 WBC (Bld) 0.6 % 0-1 [facility] CBC W/Diff, Automatedon 07-31 Absolute Lymph 2.17 X10 3/uL Normal 0.83-4.51 [facility] Comment on above: Order Comment: 109-1 Performed By: #### L 100.0100 ####[facility] [address] [place], [address] Absolute Neut 5.7 X10 3/uL Normal 2.0-7.7 [facility] Comment on above: Order Comment: 109-1 Performed By: #### L 100.0100 ####[facility] [address] [place], [address] Basophils/100 WBC (Bld) 0.6 % Normal 0-1 [facility] Comment on above: Order Comment: 109-1 Performed By: #### L 100.0100 ####[facility] [address] [place], [address] Eosinophils/100 WBC (Bld) 0.8 % Normal 0-5 [facility] Comment on above: Order Comment: 109-1 Performed By: #### L 100.0100 ####[facility] [address], [address] Erythrocyte distribution width (RBC) [Ratio] 12.7 % Normal 11.6-14.6 [facility] Comment on above: Order Comment: 109-1 Performed By: #### L 100.0100 ####[facility] [address] [place], [address] Hematocrit (Bld) [Volume fraction] 41.8 % Normal 40-54 [facility] Comment on above: Order Comment: 109-1 Performed By: #### L 100.0100 ####[facility] [address] [place], [address] Hemoglobin (Bld) [Mass/Vol] 13.8 g/dL Normal 13.0-16.5 [facility] Comment on above: Order Comment: 109-1 Performed By: #### L 100.0100 ####[facility] [address] [place], [address] IG% 0.200 Normal 0.0-0.9 [facility] Comment on above: Order Comment: 109-1 Result Comment: IG% - Immature Granulocytes (promyelocytes, myelocytes andmetamyelocytes) > 1% indicates that a LEFT SHIFT is Present. Performed By: #### L 100.0100 ####[facility] [address] [place], [address] Lymphocytes/100 WBC (Bld) 25.1 % Normal 19-41 [facility] Comment on above: Order Comment: 109-1 Performed By: #### L 100.0100 ####[facility] [address] [place], [address] MCH (RBC) [Entitic mass] 29.7 pg Normal 27.0-32.0 [facility] Comment on above: Order Comment: 109-1 Performed By: #### L 100.0100 ####[facility] [address] [place], [address] MCHC (RBC) [Mass/Vol] 33.0 g/dL Normal 32-36 [facility] Comment on above: Order Comment: 109-1 Performed By: #### L 100.0100 ####[facility] [address] [place], [address] MCV (RBC) [Entitic vol] 90.1 fL Normal 80-94 [facility] Comment on above: Order Comment: 109-1 Performed By: #### L 100.0100 ####[facility] [address] [place], [address] Monocytes/100 WBC (Bld) 7.4 % Normal 0-10 [facility] Comment on above: Order Comment: 109-1 Performed By: #### L 100.0100 ####[facility] [address] [place], [address] Neutrophils/100 WBC (Bld) 65.9 % Normal 47-70 [facility] Comment on above: Order Comment: 109-1 Performed By: #### L 100.0100 ####[facility] [address] [place], [address] Nucleated RBC (Bld) [#/Vol] 0 10*3/uL Normal 0-5 [facility] Comment on above: Order Comment: 109-1 Performed By: #### L 100.0100 ####[facility] [address] [place], [address] Platelet mean volume (Bld) [Entitic vol] 11.3 fL Normal 6.2-12.0 [facility] Comment on above: Order Comment: 109-1 Performed By: #### L 100.0100 ####[facility] [address] [place], [address] Platelets (Bld) [#/Vol] 196 10*3/uL Normal 150-450 [facility] Comment on above: Order Comment: 109-1 Performed By: #### L 100.0100 ####[facility] [address] [place], [address] RBC (Bld) [#/Vol] 4.64 10*6/uL Normal 4.6-6.2 [facility] Comment on above: Order Comment: 109-1 Performed By: #### L 100.0100 ####[facility] [address] [place], [address] RDW SD 41.3 fl Normal 35.1-43.9 [facility] Comment on above: Order Comment: 109-1 Performed By: #### L 100.0100 ####[facility] [address] [place], [address] WBC (Bld) [#/Vol] 8.6 10*3/uL Normal 4.4-11.0 [facility] Comment on above: Order Comment: 109-1 Performed By: #### L 100.0100 ####[facility] [address] [place], [address] Eosinophil percentageOrdered By: Renadr Burgos on 08-26-2024 Eosinophils/100 WBC (Bld) 0.8 % 0-5 [facility] Erythrocyte distribution wid th ratioOrdered By: Renard Burgos on 08-26-2024 Erythrocyte distribution width (RBC) [Ratio] 12.7 % 11.6-14.6 [facility] Erythrocyte distribution wid th standard deviationOrdered By: Renard Burgos on 08-26-2024 Erythrocyte distribution width (RBC) [Ratio] 41.3 fl 35.1-43.9 [facility] Hematocrit Auto (Bld) [Volum e fraction]Ordered By: Renard Burgos on 08-26-2024 Hematocrit (Bld) [Volume fraction] 41.8 % 40-54 [facility] Hemoglobin measurementOrdere d By: Renard Burgos on 08-26-2024 Hemoglobin (Bld) [Mass/Vol] 13.8 g/dL 13.0-16.5 [facility] Immature granulocytes/100 WB C Auto (Bld)Ordered By: Renard Burgos on 08-26-2024 Immature granulocytes/100 WBC (Bld) 0.200 % 0.0-0.9 [facility] Comment on above: IG% - Immature Granu locytes (promyelocytes, myelocytes and metamyelocytes) > 1% indicates that a LEFT SHIFT is Present. MCV (mean corpuscular volume ) determinationOrdered By: Renard Burgos on 08-26-2024 MCV (RBC) [Entitic vol] 90.1 fL 80-94 [facility] Mean corpuscular hemoglobin (MCH) determinationOrdered By: Renard Burgos on 08-26-2024 MCH (RBC) [Entitic mass] 29.7 pg 27.0-32.0 [facility] Mean corpuscular hemoglobin concentration (MCHC) determinationOrdered By: Renard Burgos on 08-26-2024 MCHC (RBC) [Mass/Vol] 33.0 g/dL 32-36 [facility] Mean platelet volume determi nationOrdered By: Renard Burgos on 08-26-2024 Platelet mean volume (Bld) [Entitic vol] 11.3 fL 6.2-12.0 [facility] Monocyte percentageOrdered B y: Renard Burgos on 08-26-2024 Monocytes/100 WBC (Bld) 7.4 % 0-10 [facility] Neutrophil percentageOrdered By: Renard Burgos on 08-26-2024 Neutrophils/100 WBC (Bld) 65.9 % 47-70 [facility] Nucleated red blood cell per centageOrdered By: Renard Burgos on 08-26-2024 Nucleated RBC/100 WBC (Bld) [Ratio] 0 % 0-5 [facility] Platelet countOrdered By: Garrick Bhatt on 08-26-2024 Platelets (Bld) [#/Vol] 196 10*3/uL 150-450 [facility] RBC Auto (Bld) [#/Vol]Ordere d By: Renard Burgos on 08-26-2024 RBC (Bld) [#/Vol] 4.64 10*6/uL 4.6-6.2 [facility] White blood cell (WBC) count Ordered By: Renard Burgos on 08-26-2024 WBC (Bld) [#/Vol] 8.6 10*3/uL 4.4-11.0 [facility] Anion gap in Serum or Plasma Ordered By: Renard Burgos on 08-23-2024 Anion gap [Moles/Vol] 10 mmol/L 5-15 [facility] BUN/creatinine ratioOrdered By: Renard Burgos on 08-23-2024 Urea nitrogen/Creatinine [Mass ratio] 21.4 mg/mg High 10-20 [facility] Bilirubin, totalOrdered By: Renard Burgos on 08-23-2024 Bilirubin [Mass/Vol] 0.35 mg/dL 0.00-1.30 [facility] CBC-Complete Blood Cnt No Di ffon 08-23-2024 Erythrocyte distribution width (RBC) [Ratio] 12.7 % Normal 11.6-14.6 [facility] Comment on above: Order Comment: 109.1 Performed By: #### L 500.4100, L100.0500, L500.4050 ####[facility] [address] [place], [address] Hematocrit (Bld) [Volume fraction] 42.2 % Normal 40-54 [facility] Comment on above: Order Comment: 109.1 Performed By: #### L 500.4100, L100.0500, L500.4050 ####[facility] [address] [place], [address] Hemoglobin (Bld) [Mass/Vol] 14.0 g/dL Normal 13.0-16.5 [facility] Comment on above: Order Comment: 109.1 Performed By: #### L 500.4100, L100.0500, L500.4050 ####[facility] [address] [place], [address] MCH (RBC) [Entitic mass] 30.0 pg Normal 27.0-32.0 [facility] Comment on above: Order Comment: 109.1 Performed By: #### L 500.4100, L100.0500, L500.4050 ####[facility] [address] [place], [address] MCHC (RBC) [Mass/Vol] 33.2 g/dL Normal 32-36 [facility] Comment on above: Order Comment: 109.1 Performed By: #### L 500.4100, L100.0500, L500.4050 ####[facility] [address] [place], [address] MCV (RBC) [Entitic vol] 90.6 fL Normal 80-94 [facility] Comment on above: Order Comment: 109.1 Performed By: #### L 500.4100, L100.0500, L500.4050 ####[facility] [address] [place], [address] Platelet mean volume (Bld) [Entitic vol] 11.3 fL Normal 6.2-12.0 [facility] Comment on above: Order Comment: 109.1 Performed By: #### L 500.4100, L100.0500, L500.4050 ####[facility] [address] [place], [address] Platelets (Bld) [#/Vol] 184 10*3/uL Normal 150-450 [facility] Comment on above: Order Comment: 109.1 Performed By: #### L 500.4100, L100.0500, L500.4050 ####[facility] [address] [place], [address] RBC (Bld) [#/Vol] 4.66 10*6/uL Normal 4.6-6.2 [facility] Comment on above: Order Comment: 109.1 Performed By: #### L 500.4100, L100.0500, L500.4050 ####[facility] [address] [place], [address] RDW SD 41.8 fl Normal 35.1-43.9 [facility] Comment on above: Order Comment: 109.1 Performed By: #### L 500.4100, L100.0500, L500.4050 ####[facility] [address] [place], [address] WBC (Bld) [#/Vol] 8.6 10*3/uL Normal 4.4-11.0 [facility] Comment on above: Order Comment: 109.1 Performed By: #### L 500.4100, L100.0500, L500.4050 ####[facility] [address] [place], [address] Calculated very low density lipoprotein (VLDL) cholesterol measurementOrdered By: Renard Burgos on 08-23-2024 Calculated very low density lipoprotein (VLDL) cholesterol measurement 40 mg/dL 5-40 [facility] Carbon dioxide, total [Moles /volume] in Central venous bloodOrdered By: Renard Burgos on 08-23-2024 CO2 [Moles/Vol] 24.9 mmol/L 21.0-32.0 [facility] Chloride assayOrdered By: Garrick Bhatt on 08-23-2024 Chloride [Moles/Vol] 106 mmol/L 98-108 [facility] Comprehensive Metabolic Prof ilon 08-23-2024 Albumin [Mass/Vol] 3.4 g/dL Normal 3.4-4.8 [facility] Comment on above: Order Comment: 109.1 Performed By: #### L 500.4100, L100.0500, L500.4050 ####[facility] [address] [place], [address] Albumin/Globulin [Mass ratio] 1.4 {ratio} Normal 0.9-2.4 [facility] Comment on above: Order Comment: 109.1 Performed By: #### L 500.4100, L100.0500, L500.4050 ####[facility] [address] [place], [address] ALK PHOS 101 U/L Normal 40-129 [facility] Comment on above: Order Comment: 109.1 Performed By: #### L 500.4100, L100.0500, L500.4050 ####[facility] [address] [place], [address] ALT [Catalytic activity/Vol] 13 U/L Normal <=46 [facility] Comment on above: Order Comment: 109.1 Performed By: #### L 500.4100, L100.0500, L500.4050 ####[facility] [address] [place], [address] AST [Catalytic activity/Vol] 17 U/L Normal <=37 [facility] Comment on above: Order Comment: 109.1 Performed By: #### L 500.4100, L100.0500, L500.4050 ####[facility] [address] [place], [address] Bilirubin [Mass/Vol] 0.35 mg/dL Normal 0.00-1.30 [facility] Comment on above: Order Comment: 109.1 Performed By: #### L 500.4100, L100.0500, L500.4050 ####[facility] [address] [place], [address] BUN/CRE 21.4 RATIO High 10-20 [facility] Comment on above: Order Comment: 109.1 Performed By: #### L 500.4100, L100.0500, L500.4050 ####[facility] [address] [place], [address] Calcium [Mass/Vol] 8.2 mg/dL Normal 7.6-11.0 [facility] Comment on above: Order Comment: 109.1 Performed By: #### L 500.4100, L100.0500, L500.4050 ####[facility] [address] [place], [address] Chloride [Moles/Vol] 106 mmol/L Normal 98-108 [facility] Comment on above: Order Comment: 109.1 Performed By: #### L 500.4100, L100.0500, L500.4050 ####[facility] [address] [place], [address] CO2 [Moles/Vol] 24.9 mmol/L Normal 21.0-32.0 [facility] Comment on above: Order Comment: 109.1 Performed By: #### L 500.4100, L100.0500, L500.4050 ####[facility] [address] [place], [address] Creatinine [Mass/Vol] 0.63 mg/dL Low 0.70-1.20 [facility] Comment on above: Order Comment: 109.1 Performed By: #### L 500.4100, L100.0500, L500.4050 ####[facility] [address] [place], [address] GAP 10 Normal 5-15 [facility] Comment on above: Order Comment: 109.1 Performed By: #### L 500.4100, L100.0500, L500.4050 ####[facility] [address] [place], [address] GFR/1.73 sq M.predicted among non-blacks MDRD (S/P/Bld) [Vol rate/Area] 104 mL/min/{1.73_m2} Normal >60 [facility] Comment on above: Order Comment: 109.1 Result Comment: mL/m in/1.73m2 CKD-EPI Creatinine Equation (2020) Performed By: #### L 500.4100, L100.0500, L500.4050 ####[facility] [address] [place], [address] Globulin (S) [Mass/Vol] 2.3 g/dL Normal 2.2-4.2 [facility] Comment on above: Order Comment: 109.1 Performed By: #### L 500.4100, L100.0500, L500.4050 ####[facility] [address] [place], [address] Glucose [Mass/Vol] 116 mg/dL High 70-99 [facility] Comment on above: Order Comment: 109.1 Performed By: #### L 500.4100, L100.0500, L500.4050 ####[facility] [address] [place], [address] Potassium [Moles/Vol] 3.8 mmol/L Normal 3.3-5.1 [facility] Comment on above: Order Comment: 109.1 Performed By: #### L 500.4100, L100.0500, L500.4050 ####[facility] [address] [place], [address] Sodium [Moles/Vol] 141 mmol/L Normal 133-145 [facility] Comment on above: Order Comment: 109.1 Performed By: #### L 500.4100, L100.0500, L500.4050 ####[facility] [address] [place], [address] T PROT 5.7 g/dL Low 5.9-8.4 [facility] Comment on above: Order Comment: 109.1 Performed By: #### L 500.4100, L100.0500, L500.4050 ####[facility] [address] [place], [address] Urea nitrogen [Mass/Vol] 14 mg/dL Normal 4-19 [facility] Comment on above: Order Comment: 109.1 Performed By: #### L 500.4100, L100.0500, L500.4050 ####[facility] [address] [place], [address] Erythrocyte distribution wid th ratioOrdered By: Renard Burgos on 08-23-2024 Erythrocyte distribution width (RBC) [Ratio] 12.7 % 11.6-14.6 [facility] Erythrocyte distribution wid th standard deviationOrdered By: Renard Burgos on 08-23-2024 Erythrocyte distribution width (RBC) [Ratio] 41.8 fl 35.1-43.9 [facility] Glomerular filtration rate ( GFR) estimation/1.73 sq m using serum, plasma, or whole bOrdered By: Renard Burgos on 08-23-2024 GFR/1.73 sq M.predicted among non-blacks MDRD (S/P/Bld) [Vol rate/Area] 104 mL/min/{1.73_m2} >60 [facility] Comment on above: mL/min/1.73m2 CKD-EP I Creatinine Equation (2020) Hematocrit Auto (Bld) [Volum e fraction]Ordered By: Renard Burgos on 08-23-2024 Hematocrit (Bld) [Volume fraction] 42.2 % 40-54 [facility] Hemoglobin measurementOrdere d By: Renard Burgos on 08-23-2024 Hemoglobin (Bld) [Mass/Vol] 14.0 g/dL 13.0-16.5 [facility] LDL calc ser/plasOrdered By: Renard Burgos on 08-23-2024 Cholesterol in LDL [Mass/Vol] 62 mg/dL [facility] Comment on above: Dvpuwnsybv=868-051 m g/dL & Higher Wgjh=900 mg/dL or greater Laboratory - Chemistry and C hemistry - challengeOrdered By: Renard Burgos on 08-23-2024 AST [Catalytic activity/Vol] 17 U/L <38 [facility] Lipid Profileon 08-23-2024 CHOL:HDL 5.32 Normal [facility] Comment on above: Order Comment: 109.1 Performed By: #### L 500.4100, L100.0500, L500.4050 ####[facility] [address] [place], [address] Cholesterol [Mass/Vol] 125 mg/dL Normal <=200 [facility] Comment on above: Order Comment: 109.1 Result Comment: Chol esterol level, Desirable <200 mg/dLBorderline high cholesterol 200-239 mg/dLHigh cholesterol >=240 mg/dLRecommendations of the NCEP Adult Treatment Panel for thefollowing risk-cutoff thresholds for the [place] Americanpopulation. Performed By: #### L 500.4100, L100.0500, L500.4050 ####[facility] [address] [place], [address] Cholesterol in HDL [Mass/Vol] 24 mg/dL Low [facility] Comment on above: Order Comment: 109.1 Result Comment: Lucy onal Cholesterol Education Program (NCEP) guidelines:<40 mg/dL: Low HDL-cholesterol (major risk factor for CHD)>= 60 mg/dL: High HDL-cholesterol (negative risk factor forCHD)HDL-cholesterol is affected by a number of factors, e.g.smoking, exercise, hormones, sex and age. Performed By: #### L 500.4100, L100.0500, L500.4050 ####[facility] [address] [place], [address] Cholesterol in LDL [Mass/Vol] 62 mg/dL Normal [facility] Comment on above: Order Comment: 109.1 Result Comment: Bord cuwqfe=276-220 mg/dL Higher Hjto=464 mg/dL or greater Performed By: #### L 500.4100, L100.0500, L500.4050 ####[facility] [address] [place], [address] Cholesterol in VLDL [Mass/Vol] 40 mg/dL Normal 5-40 [facility] Comment on above: Order Comment: 109.1 Performed By: #### L 500.4100, L100.0500, L500.4050 ####[facility] [address] [place], [address] Triglyceride [Mass/Vol] 198 mg/dL Normal [facility] Comment on above: Order Comment: 109.1 Result Comment: The drugs N-Acetylcysteine and Metamizole may falselydepress this assay.Normal range: <150 mg/dLBorderline High: 150-199 mg/dLHigh: 200-499 mg/dLVery High: >500 mg/dL Performed By: #### L 500.4100, L100.0500, L500.4050 ####[facility] [address] [place], [address] MCV (mean corpuscular volume ) determinationOrdered By: Renard Burgos on 08-23-2024 MCV (RBC) [Entitic vol] 90.6 fL 80-94 [facility] Mean corpuscular hemoglobin (MCH) determinationOrdered By: Renard Burgos on 08-23-2024 MCH (RBC) [Entitic mass] 30.0 pg 27.0-32.0 [facility] Mean corpuscular hemoglobin concentration (MCHC) determinationOrdered By: Renard Burgos on 08-23-2024 MCHC (RBC) [Mass/Vol] 33.2 g/dL 32-36 [facility] Mean platelet volume determi nationOrdered By: Renard Burgos on 08-23-2024 Platelet mean volume (Bld) [Entitic vol] 11.3 fL 6.2-12.0 [facility] Platelet countOrdered By: Garrick Bhatt on 08-23-2024 Platelets (Bld) [#/Vol] 184 10*3/uL 150-450 [facility] Potassium measurement (mass/ volume)Ordered By: Renard Burgos on 08-23-2024 Potassium (Unsp spec) [Mass/Vol] 3.8 mmol/L 3.3-5.1 [facility] RBC Auto (Bld) [#/Vol]Ordere d By: Renard Burogs on 08-23-2024 RBC (Bld) [#/Vol] 4.66 10*6/uL 4.6-6.2 [facility] Screening total cholesterol/ high density lipoprotein (HDL) cholesterol ratioOrdered By: Renard Burgos on 08-23-2024 Cholesterol.total/Cecilia sterol in HDL [Mass ratio] 5.32 {ratio} [facility] Serum creatinine measurement (mass/volume)Ordered By: Renard Burgos on 08-23-2024 Creatinine [Mass/Vol] 0.63 mg/dL Low 0.70-1.20 [facility] Serum globulin measurementOr dered By: Renard Burgos on 08-23-2024 Globulin (S) [Mass/Vol] 2.3 g/dL 2.2-4.2 [facility] Serum glucose measurement (m ass/volume)Ordered By: Renard Burgos on 08-23-2024 Glucose [Mass/Vol] 116 mg/dL High 70-99 [facility] Serum or plasma alanine kay otransferase (ALT) measurementOrdered By: Renard Burgos on 08-23-2024 ALT [Catalytic activity/Vol] 13 U/L <47 [facility] Serum or plasma albumin gordy urement (mass/volume)Ordered By: Renard Burgos on 08-23-2024 Albumin [Mass/Vol] 3.4 g/dL 3.4-4.8 [facility] Serum or plasma albumin/glob ulin mass ratioOrdered By: Renard Burgos on 08-23-2024 Albumin/Globulin [Mass ratio] 1.4 {ratio} 0.9-2.4 [facility] Serum or plasma alkaline trace sphatase measurementOrdered By: Renard Burgos on 08-23-2024 ALP [Catalytic activity/Vol] 101 U/L 40-129 [facility] Serum or plasma calcium gordy urement (mass/volume)Ordered By: Renard Burgos on 08-23-2024 Calcium [Mass/Vol] 8.2 mg/dL 7.6-11.0 [facility] Serum or plasma cholesterol in HDL measurement (mass/volume)Ordered By: Renard Burgos on 08-23-2024 Cholesterol in HDL [Mass/Vol] 24 mg/dL Low >40 [facility] Comment on above: National Cholesterol Education Program (NCEP) guidelines:<40 mg/dL: Low HDL-cholesterol (major risk factor for CHD)>= 60 mg/dL: High HDL-cholesterol (negative risk factor for CHD)HDL-cholesterol is affected by a number of factors, e.g. smoking, exercise, hormones, sex and age. Serum or plasma cholesterol measurement (mass/volume)Ordered By: Renard Burgos on 08-23-2024 Cholesterol [Mass/Vol] 125 mg/dL <201 [facility] Comment on above: Cholesterol level, D esirable <200 mg/dLBorderline high cholesterol 200-239 mg/dLHigh cholesterol >=240 mg/dLRecommendations of the NCEP Adult Treatment Panel for the following risk-cutoff thresholds for the [place] population. Serum or plasma urea nitroge n measurement (mass/volume)Ordered By: Renard Burgos on 08-23-2024 Urea nitrogen [Mass/Vol] 14 mg/dL 4-19 [facility] Sodium levelOrdered By: Lamine Burgos on 08-23-2024 Sodium [Moles/Vol] 141 mmol/L 133-145 [facility] Total proteinOrdered By: Lyubov Burgos on 08-23-2024 Protein [Mass/Vol] 5.7 g/dL Low 5.9-8.4 [facility] Triglycerides measurementOrd ered By: Renard Burgos on 08-23-2024 Triglyceride [Mass/Vol] 198 mg/dL <199 [facility] Comment on above: The drugs N-Acetylcy steine and Metamizole may falsely depress this assay. Normal range: <150 mg/dLBorderline High: 150-199 mg/dLHigh: 200-499 mg/dLVery High: >500 mg/dL White blood cell (WBC) count Ordered By: Renard Burgos on 08-23-2024 WBC (Bld) [#/Vol] 8.6 10*3/uL 4.4-11.0 [facility] Absolute lymphocyte countOrd ered By: Renard Burgos on 08-19-2024 Lymphocytes Auto (Unsp spec) [#/Vol] 1.97 10*3/uL 0.83-4.51 [facility] Absolute neutrophil countOrd ered By: Renard Burgos on 08-19-2024 Neutrophils (Bld) [#/Vol] 5.0 10*3/uL 2.0-7.7 [facility] Automated lymphocyte count a s percentage of total leukocytesOrdered By: Renard Burgos on 08-19-2024 Lymphocytes/100 WBC Auto (Unsp spec) 25.4 % 19-41 [facility] Basophil percentageOrdered B y: Renard Burgos on 08-19-2024 Basophils/100 WBC (Bld) 0.5 % 0-1 [facility] CBC W/Diff, Automatedon 07-31 Absolute Lymph 1.97 X10 3/uL Normal 0.83-4.51 [facility] Comment on above: Order Comment: 109 Performed By: #### L 100.0100 ####[facility] [address] [place], [address] Absolute Neut 5.0 X10 3/uL Normal 2.0-7.7 [facility] Comment on above: Order Comment: 109 Performed By: #### L 100.0100 ####[facility] [address] [place], [address] Basophils/100 WBC (Bld) 0.5 % Normal 0-1 [facility] Comment on above: Order Comment: 109 Performed By: #### L 100.0100 ####[facility] [address] [place], [address] Eosinophils/100 WBC (Bld) 1.0 % Normal 0-5 [facility] Comment on above: Order Comment: 109 Performed By: #### L 100.0100 ####[facility] [address] [place], [address] Erythrocyte distribution width (RBC) [Ratio] 12.7 % Normal 11.6-14.6 [facility] Comment on above: Order Comment: 109 Performed By: #### L 100.0100 ####[facility] [address] [place], [address] Hematocrit (Bld) [Volume fraction] 41.0 % Normal 40-54 [facility] Comment on above: Order Comment: 109 Performed By: #### L 100.0100 ####[facility] [address] [place], [address] Hemoglobin (Bld) [Mass/Vol] 13.6 g/dL Normal 13.0-16.5 [facility] Comment on above: Order Comment: 109 Performed By: #### L 100.0100 ####[facility] [address] [place], [address] IG% 0.400 Normal 0.0-0.9 [facility] Comment on above: Order Comment: 109 Result Comment: IG% - Immature Granulocytes (promyelocytes, myelocytes andmetamyelocytes) > 1% indicates that a LEFT SHIFT is Present. Performed By: #### L 100.0100 ####[facility] [address] [place], [address] Lymphocytes/100 WBC (Bld) 25.4 % Normal 19-41 [facility] Comment on above: Order Comment: 109 Performed By: #### L 100.0100 ####[facility] [address] [place], [address] MCH (RBC) [Entitic mass] 30.2 pg Normal 27.0-32.0 [facility] Comment on above: Order Comment: 109 Performed By: #### L 100.0100 ####[facility] [address] [place], [address] MCHC (RBC) [Mass/Vol] 33.2 g/dL Normal 32-36 [facility] Comment on above: Order Comment: 109 Performed By: #### L 100.0100 ####[facility] [address] [place], [address] MCV (RBC) [Entitic vol] 91.1 fL Normal 80-94 [facility] Comment on above: Order Comment: 109 Performed By: #### L 100.0100 ####[facility] [address] [place], [address] Monocytes/100 WBC (Bld) 8.2 % Normal 0-10 [facility] Comment on above: Order Comment: 109 Performed By: #### L 100.0100 ####[facility] [address] [place], [address] Neutrophils/100 WBC (Bld) 64.5 % Normal 47-70 [facility] Comment on above: Order Comment: 109 Performed By: #### L 100.0100 ####[facility] [address] [place], [address] Nucleated RBC (Bld) [#/Vol] 0 10*3/uL Normal 0-5 [facility] Comment on above: Order Comment: 109 Performed By: #### L 100.0100 ####[facility] [address] [place], [address] Platelet mean volume (Bld) [Entitic vol] 11.1 fL Normal 6.2-12.0 [facility] Comment on above: Order Comment: 109 Performed By: #### L 100.0100 ####[facility] [address] [place], [address] Platelets (Bld) [#/Vol] 207 10*3/uL Normal 150-450 [facility] Comment on above: Order Comment: 109 Performed By: #### L 100.0100 ####[facility] [address] [place], [address] RBC (Bld) [#/Vol] 4.50 10*6/uL Low 4.6-6.2 [facility] Comment on above: Order Comment: 109 Performed By: #### L 100.0100 ####[facility] [address] [place], [address] RDW SD 42.0 fl Normal 35.1-43.9 [facility] Comment on above: Order Comment: 109 Performed By: #### L 100.0100 ####[facility] [address] [place], [address] WBC (Bld) [#/Vol] 7.8 10*3/uL Normal 4.4-11.0 [facility] Comment on above: Order Comment: 109 Performed By: #### L 100.0100 ####[facility] [address] [place], [address] Eosinophil percentageOrdered By: Renard Burgos on 08-19-2024 Eosinophils/100 WBC (Bld) 1.0 % 0-5 [facility] Erythrocyte distribution wid th ratioOrdered By: Renard Burgos on 08-19-2024 Erythrocyte distribution width (RBC) [Ratio] 12.7 % 11.6-14.6 [facility] Erythrocyte distribution wid th standard deviationOrdered By: Renard Burgos on 08-19-2024 Erythrocyte distribution width (RBC) [Ratio] 42.0 fl 35.1-43.9 [facility] Hematocrit Auto (Bld) [Volum e fraction]Ordered By: Renard Burgos on 08-19-2024 Hematocrit (Bld) [Volume fraction] 41.0 % 40-54 [facility] Hemoglobin measurementOrdere d By: Renard Burgos on 08-19-2024 Hemoglobin (Bld) [Mass/Vol] 13.6 g/dL 13.0-16.5 [facility] Immature granulocytes/100 WB C Auto (Bld)Ordered By: Renard Burgos on 08-19-2024 Immature granulocytes/100 WBC (Bld) 0.400 % 0.0-0.9 [facility] Comment on above: IG% - Immature Granu locytes (promyelocytes, myelocytes and metamyelocytes) > 1% indicates that a LEFT SHIFT is Present. MCV (mean corpuscular volume ) determinationOrdered By: Renard Burgos on 08-19-2024 MCV (RBC) [Entitic vol] 91.1 fL 80-94 [facility] Mean corpuscular hemoglobin (MCH) determinationOrdered By: Renard Burgos on 08-19-2024 MCH (RBC) [Entitic mass] 30.2 pg 27.0-32.0 [facility] Mean corpuscular hemoglobin concentration (MCHC) determinationOrdered By: Renard Burgos on 08-19-2024 MCHC (RBC) [Mass/Vol] 33.2 g/dL 32-36 [facility] Mean platelet volume determi nationOrdered By: Renard Burgos on 08-19-2024 Platelet mean volume (Bld) [Entitic vol] 11.1 fL 6.2-12.0 [facility] Monocyte percentageOrdered B y: Renard Burgos on 08-19-2024 Monocytes/100 WBC (Bld) 8.2 % 0-10 [facility] Neutrophil percentageOrdered By: Renard Burgos on 08-19-2024 Neutrophils/100 WBC (Bld) 64.5 % 47-70 [facility] Nucleated red blood cell per centageOrdered By: Renard Burgos on 08-19-2024 Nucleated RBC/100 WBC (Bld) [Ratio] 0 % 0-5 [facility] Platelet countOrdered By: Garrick Bhatt on 08-19-2024 Platelets (Bld) [#/Vol] 207 10*3/uL 150-450 [facility] RBC Auto (Bld) [#/Vol]Ordere d By: Renard Burgos on 08-19-2024 RBC (Bld) [#/Vol] 4.50 10*6/uL Low 4.6-6.2 [facility] White blood cell (WBC) count Ordered By: Renard Burgos on 08-19-2024 WBC (Bld) [#/Vol] 7.8 10*3/uL 4.4-11.0 [facility] Absolute lymphocyte countOrd ered By: Renard Burgos on 08-12-2024 Lymphocytes Auto (Unsp spec) [#/Vol] 2.09 10*3/uL 0.83-4.51 [facility] Absolute neutrophil countOrd ered By: Renard Burgos on 08-12-2024 Neutrophils (Bld) [#/Vol] 5.0 10*3/uL 2.0-7.7 [facility] Automated lymphocyte count a s percentage of total leukocytesOrdered By: Renard Burgos on 08-12-2024 Lymphocytes/100 WBC Auto (Unsp spec) 27.0 % 19-41 [facility] Basophil percentageOrdered B y: Renard Burgos on 08-12-2024 Basophils/100 WBC (Bld) 0.5 % 0-1 [facility] CBC W/Diff, Automatedon 07-30 Absolute Lymph 2.09 X10 3/uL Normal 0.83-4.51 [facility] Comment on above: Order Comment: 109.1 Performed By: #### L 100.0100 ####[facility] [address] [place], [address] Absolute Neut 5.0 X10 3/uL Normal 2.0-7.7 [facility] Comment on above: Order Comment: 109.1 Performed By: #### L 100.0100 ####[facility] [address] [place], [address] Basophils/100 WBC (Bld) 0.5 % Normal 0-1 [facility] Comment on above: Order Comment: 109.1 Performed By: #### L 100.0100 ####[facility] [address] [place], [address] Eosinophils/100 WBC (Bld) 0.9 % Normal 0-5 [facility] Comment on above: Order Comment: 109.1 Performed By: #### L 100.0100 ####[facility] [address], [address] Erythrocyte distribution width (RBC) [Ratio] 12.7 % Normal 11.6-14.6 [facility] Comment on above: Order Comment: 109.1 Performed By: #### L 100.0100 ####[facility] [address] [place], [address] Hematocrit (Bld) [Volume fraction] 41.9 % Normal 40-54 [facility] Comment on above: Order Comment: 109.1 Performed By: #### L 100.0100 ####[facility] [address] [place], [address] Hemoglobin (Bld) [Mass/Vol] 14.1 g/dL Normal 13.0-16.5 [facility] Comment on above: Order Comment: 109.1 Performed By: #### L 100.0100 ####[facility] [address] [place], [address] IG% 0.300 Normal 0.0-0.9 [facility] Comment on above: Order Comment: 109.1 Result Comment: IG% - Immature Granulocytes (promyelocytes, myelocytes andmetamyelocytes) > 1% indicates that a LEFT SHIFT is Present. Performed By: #### L 100.0100 ####[facility] [address] [place], [address] Lymphocytes/100 WBC (Bld) 27.0 % Normal 19-41 [facility] Comment on above: Order Comment: 109.1 Performed By: #### L 100.0100 ####[facility] [address] [place], [address] MCH (RBC) [Entitic mass] 30.3 pg Normal 27.0-32.0 [facility] Comment on above: Order Comment: 109.1 Performed By: #### L 100.0100 ####[facility] [address] [place], [address] MCHC (RBC) [Mass/Vol] 33.7 g/dL Normal 32-36 [facility] Comment on above: Order Comment: 109.1 Performed By: #### L 100.0100 ####[facility] [address] [place], [address] MCV (RBC) [Entitic vol] 90.1 fL Normal 80-94 [facility] Comment on above: Order Comment: 109.1 Performed By: #### L 100.0100 ####[facility] [address] [place], [address] Monocytes/100 WBC (Bld) 7.1 % Normal 0-10 [facility] Comment on above: Order Comment: 109.1 Performed By: #### L 100.0100 ####[facility] [address] [place], [address] Neutrophils/100 WBC (Bld) 64.2 % Normal 47-70 [facility] Comment on above: Order Comment: 109.1 Performed By: #### L 100.0100 ####[facility] [address] [place], [address] Nucleated RBC (Bld) [#/Vol] 0 10*3/uL Normal 0-5 [facility] Comment on above: Order Comment: 109.1 Performed By: #### L 100.0100 ####[facility] [address] [place], [address] Platelet mean volume (Bld) [Entitic vol] 11.2 fL Normal 6.2-12.0 [facility] Comment on above: Order Comment: 109.1 Performed By: #### L 100.0100 ####[facility] [address] [place], [address] Platelets (Bld) [#/Vol] 188 10*3/uL Normal 150-450 [facility] Comment on above: Order Comment: 109.1 Performed By: #### L 100.0100 ####[facility] [address] [place], [address] RBC (Bld) [#/Vol] 4.65 10*6/uL Normal 4.6-6.2 [facility] Comment on above: Order Comment: 109.1 Performed By: #### L 100.0100 ####[facility] [address] [place], [address] RDW SD 41.6 fl Normal 35.1-43.9 [facility] Comment on above: Order Comment: 109.1 Performed By: #### L 100.0100 ####[facility] [address] [place], [address] WBC (Bld) [#/Vol] 7.8 10*3/uL Normal 4.4-11.0 [facility] Comment on above: Order Comment: 109.1 Performed By: #### L 100.0100 ####[facility] [address] [place], [address] Eosinophil percentageOrdered By: Renard Burgos on 08-12-2024 Eosinophils/100 WBC (Bld) 0.9 % 0-5 [facility] Erythrocyte distribution wid th (RBC) [Ratio]Ordered By: Renard Burgos on 08-12-2024 Erythrocyte distribution width (RBC) [Entitic vol] 41.6 fL 35.1-43.9 [facility] Erythrocyte distribution wid th ratioOrdered By: Renard Burgos on 08-12-2024 Erythrocyte distribution width (RBC) [Ratio] 12.7 % 11.6-14.6 [facility] Erythrocyte distribution wid th standard deviationOrdered By: Renard Burgos on 08-12-2024 Erythrocyte distribution width (RBC) [Ratio] 41.6 fl 35.1-43.9 [facility] Hematocrit Auto (Bld) [Volum e fraction]Ordered By: Renard Burgos on 08-12-2024 Hematocrit (Bld) [Volume fraction] 41.9 % 40-54 [facility] Hemoglobin measurementOrdere d By: Renard Burgos on 08-12-2024 Hemoglobin (Bld) [Mass/Vol] 14.1 g/dL 13.0-16.5 [facility] Immature granulocytes/100 WB C Auto (Bld)Ordered By: Renard Burgos on 08-12-2024 Immature granulocytes/100 WBC (Bld) 0.300 % 0.0-0.9 [facility] Comment on above: IG% - Immature Granu locytes (promyelocytes, myelocytes and metamyelocytes) > 1% indicates that a LEFT SHIFT is Present. Lymphocytes Auto (Unsp spec) [#/Vol]Ordered By: Renard Burgos on 08-12-2024 Lymphocytes (Bld) [#/Vol] 2.09 10*3/uL 0.83-4.51 [facility] Lymphocytes/100 WBC Auto (Un sp spec)Ordered By: Renard Burgos on 08-12-2024 Lymphocytes/100 WBC (Bld) 27.0 % 19-41 [facility] MCV (mean corpuscular volume ) determinationOrdered By: Renard Burgos on 08-12-2024 MCV (RBC) [Entitic vol] 90.1 fL 80-94 [facility] Mean corpuscular hemoglobin (MCH) determinationOrdered By: Renard Burgos on 08-12-2024 MCH (RBC) [Entitic mass] 30.3 pg 27.0-32.0 [facility] Mean corpuscular hemoglobin concentration (MCHC) determinationOrdered By: Renard Burgos on 08-12-2024 MCHC (RBC) [Mass/Vol] 33.7 g/dL 32-36 [facility] Mean platelet volume determi nationOrdered By: Renard Burgos on 08-12-2024 Platelet mean volume (Bld) [Entitic vol] 11.2 fL 6.2-12.0 [facility] Monocyte percentageOrdered B y: Renard Burgos on 08-12-2024 Monocytes/100 WBC (Bld) 7.1 % 0-10 [facility] Neutrophil percentageOrdered By: Renard Burgos on 08-12-2024 Neutrophils/100 WBC (Bld) 64.2 % 47-70 [facility] Nucleated red blood cell per centageOrdered By: Renard Burgos on 08-12-2024 Nucleated RBC/100 WBC (Bld) [Ratio] 0 % 0-5 [facility] Platelet countOrdered By: Garrick Bhatt on 08-12-2024 Platelets (Bld) [#/Vol] 188 10*3/uL 150-450 [facility] RBC Auto (Bld) [#/Vol]Ordere d By: Renard Burgos on 08-12-2024 RBC (Bld) [#/Vol] 4.65 10*6/uL 4.6-6.2 [facility] White blood cell (WBC) count Ordered By: Renard Burgos on 08-12-2024 WBC (Bld) [#/Vol] 7.8 10*3/uL 4.4-11.0 [facility] Absolute lymphocyte countOrd ered By: Renard Burgos on 08-05-2024 Lymphocytes Auto (Unsp spec) [#/Vol] 2.31 10*3/uL 0.83-4.51 [facility] Absolute neutrophil countOrd ered By: Renard Burgos on 08-05-2024 Neutrophils (Bld) [#/Vol] 5.4 10*3/uL 2.0-7.7 [facility] Automated lymphocyte count a s percentage of total leukocytesOrdered By: Renard Burgos on 08-05-2024 Lymphocytes/100 WBC Auto (Unsp spec) 26.9 % 19-41 [facility] Basophil percentageOrdered B y: Renard Burgos on 08-05-2024 Basophils/100 WBC (Bld) 0.6 % 0-1 [facility] CBC W/Diff, Automatedon Absolute Lymph 2.31 X10 3/uL Normal 0.83-4.51 [facility] Comment on above: Order Comment: 109.1 Performed By: #### L 100.0100 ####[facility] [address] [place], [address] Absolute Neut 5.4 X10 3/uL Normal 2.0-7.7 [facility] Comment on above: Order Comment: 109.1 Performed By: #### L 100.0100 ####[facility] [address] [place], [address] Basophils/100 WBC (Bld) 0.6 % Normal 0-1 [facility] Comment on above: Order Comment: 109.1 Performed By: #### L 100.0100 ####[facility] [address] [place], [address] Eosinophils/100 WBC (Bld) 0.8 % Normal 0-5 [facility] Comment on above: Order Comment: 109.1 Performed By: #### L 100.0100 ####[facility] [address] [place], [address] Erythrocyte distribution width (RBC) [Ratio] 12.7 % Normal 11.6-14.6 [facility] Comment on above: Order Comment: 109.1 Performed By: #### L 100.0100 ####[facility] [address] [place], [address] Hematocrit (Bld) [Volume fraction] 41.6 % Normal 40-54 [facility] Comment on above: Order Comment: 109.1 Performed By: #### L 100.0100 ####[facility] [address] [place], [address] Hemoglobin (Bld) [Mass/Vol] 13.7 g/dL Normal 13.0-16.5 [facility] Comment on above: Order Comment: 109.1 Performed By: #### L 100.0100 ####[facility] [address] [place], [address] IG% 0.300 Normal 0.0-0.9 [facility] Comment on above: Order Comment: 109.1 Result Comment: IG% - Immature Granulocytes (promyelocytes, myelocytes andmetamyelocytes) > 1% indicates that a LEFT SHIFT is Present. Performed By: #### L 100.0100 ####[facility] [address] [place], [address] Lymphocytes/100 WBC (Bld) 26.9 % Normal 19-41 [facility] Comment on above: Order Comment: 109.1 Performed By: #### L 100.0100 ####[facility] [address] [place], [address] MCH (RBC) [Entitic mass] 30.1 pg Normal 27.0-32.0 [facility] Comment on above: Order Comment: 109.1 Performed By: #### L 100.0100 ####[facility] [address] [place], [address] MCHC (RBC) [Mass/Vol] 32.9 g/dL Normal 32-36 [facility] Comment on above: Order Comment: 109.1 Performed By: #### L 100.0100 ####[facility] [address] [place], [address] MCV (RBC) [Entitic vol] 91.4 fL Normal 80-94 [facility] Comment on above: Order Comment: 109.1 Performed By: #### L 100.0100 ####[facility] [address] [place], [address] Monocytes/100 WBC (Bld) 8.3 % Normal 0-10 [facility] Comment on above: Order Comment: 109.1 Performed By: #### L 100.0100 ####[facility] [address] [place], [address] Neutrophils/100 WBC (Bld) 63.1 % Normal 47-70 [facility] Comment on above: Order Comment: 109.1 Performed By: #### L 100.0100 ####[facility] [address] [place], [address] Nucleated RBC (Bld) [#/Vol] 0 10*3/uL Normal 0-5 [facility] Comment on above: Order Comment: 109.1 Performed By: #### L 100.0100 ####[facility] [address] [place], [address] Platelet mean volume (Bld) [Entitic vol] 11.1 fL Normal 6.2-12.0 [facility] Comment on above: Order Comment: 109.1 Performed By: #### L 100.0100 ####[facility] [address] [place], [address] Platelets (Bld) [#/Vol] 199 10*3/uL Normal 150-450 [facility] Comment on above: Order Comment: 109.1 Performed By: #### L 100.0100 ####[facility] [address] [place], [address] RBC (Bld) [#/Vol] 4.55 10*6/uL Low 4.6-6.2 [facility] Comment on above: Order Comment: 109.1 Performed By: #### L 100.0100 ####[facility] [address] [place], [address] RDW SD 42.5 fl Normal 35.1-43.9 [facility] Comment on above: Order Comment: 109.1 Performed By: #### L 100.0100 ####[facility] [address] [place], [address] WBC (Bld) [#/Vol] 8.6 10*3/uL Normal 4.4-11.0 [facility] Comment on above: Order Comment: 109.1 Performed By: #### L 100.0100 ####[facility] [address] [place], [address] Eosinophil percentageOrdered By: Renard Burgos on 08-05-2024 Eosinophils/100 WBC (Bld) 0.8 % 0-5 [facility] Erythrocyte distribution wid th (RBC) [Ratio]Ordered By: Renard Burgos on 08-05-2024 Erythrocyte distribution width (RBC) [Entitic vol] 42.5 fL 35.1-43.9 [facility] Erythrocyte distribution wid th ratioOrdered By: Renard Burgos on 08-05-2024 Erythrocyte distribution width (RBC) [Ratio] 12.7 % 11.6-14.6 [facility] Erythrocyte distribution wid th standard deviationOrdered By: Renard Burgos on 08-05-2024 Erythrocyte distribution width (RBC) [Ratio] 42.5 fl 35.1-43.9 [facility] Hematocrit Auto (Bld) [Volum e fraction]Ordered By: Renard Burgos on 08-05-2024 Hematocrit (Bld) [Volume fraction] 41.6 % 40-54 [facility] Hemoglobin measurementOrdere d By: Renard Burgos on 08-05-2024 Hemoglobin (Bld) [Mass/Vol] 13.7 g/dL 13.0-16.5 [facility] Immature granulocytes/100 WB C Auto (Bld)Ordered By: Renard Burgos on 08-05-2024 Immature granulocytes/100 WBC (Bld) 0.300 % 0.0-0.9 [facility] Comment on above: IG% - Immature Granu locytes (promyelocytes, myelocytes and metamyelocytes) > 1% indicates that a LEFT SHIFT is Present. Lymphocytes Auto (Unsp spec) [#/Vol]Ordered By: Renard Burgos on 08-05-2024 Lymphocytes (Bld) [#/Vol] 2.31 10*3/uL 0.83-4.51 [facility] Lymphocytes/100 WBC Auto (Un sp spec)Ordered By: Renard Burgos on 08-05-2024 Lymphocytes/100 WBC (Bld) 26.9 % 19-41 [facility] MCV (mean corpuscular volume ) determinationOrdered By: Renard Burgos on 08-05-2024 MCV (RBC) [Entitic vol] 91.4 fL 80-94 [facility] Mean corpuscular hemoglobin (MCH) determinationOrdered By: Renard Burgos on 08-05-2024 MCH (RBC) [Entitic mass] 30.1 pg 27.0-32.0 [facility] Mean corpuscular hemoglobin concentration (MCHC) determinationOrdered By: Renard Burgos on 08-05-2024 MCHC (RBC) [Mass/Vol] 32.9 g/dL 32-36 [facility] Mean platelet volume determi nationOrdered By: Renard Burgos on 08-05-2024 Platelet mean volume (Bld) [Entitic vol] 11.1 fL 6.2-12.0 [facility] Monocyte percentageOrdered B y: Renard Burgos on 08-05-2024 Monocytes/100 WBC (Bld) 8.3 % 0-10 [facility] Neutrophil percentageOrdered By: Renard Burgos on 08-05-2024 Neutrophils/100 WBC (Bld) 63.1 % 47-70 [facility] Nucleated red blood cell per centageOrdered By: Renard Burgos on 08-05-2024 Nucleated RBC/100 WBC (Bld) [Ratio] 0 % 0-5 [facility] Platelet countOrdered By: Garrick Bhatt on 08-05-2024 Platelets (Bld) [#/Vol] 199 10*3/uL 150-450 [facility] RBC Auto (Bld) [#/Vol]Ordere d By: Renard Burgos on 08-05-2024 RBC (Bld) [#/Vol] 4.55 10*6/uL Low 4.6-6.2 [facility] White blood cell (WBC) count Ordered By: Renard Burgos on 08-05-2024 WBC (Bld) [#/Vol] 8.6 10*3/uL 4.4-11.0 [facility] Absolute lymphocyte countOrd ered By: Renard Burgos on 07-29-2024 Lymphocytes Auto (Unsp spec) [#/Vol] 1.93 10*3/uL 0.83-4.51 [facility] Absolute neutrophil countOrd ered By: Renard Burgos on 07-29-2024 Neutrophils (Bld) [#/Vol] 6.8 10*3/uL 2.0-7.7 [facility] Automated lymphocyte count a s percentage of total leukocytesOrdered By: Renard Hensleyrustam on 07-29-2024 Lymphocytes/100 WBC Auto (Unsp spec) 20.2 % 19-41 [facility] Basophil percentageOrdered B y: Renard Burgos on 07-29-2024 Basophils/100 WBC (Bld) 0.5 % 0-1 [facility] CBC W/Diff, Automatedon 07-01 Absolute Lymph 1.93 X10 3/uL Normal 0.83-4.51 [facility] Comment on above: Order Comment: 109-1 Performed By: #### L 100.0100 ####[facility] [address] [place], [address] Absolute Neut 6.8 X10 3/uL Normal 2.0-7.7 [facility] Comment on above: Order Comment: 109-1 Performed By: #### L 100.0100 ####[facility] [address] [place], [address] Basophils/100 WBC (Bld) 0.5 % Normal 0-1 [facility] Comment on above: Order Comment: 109-1 Performed By: #### L 100.0100 ####[facility] [address] [place], [address] Eosinophils/100 WBC (Bld) 0.7 % Normal 0-5 [facility] Comment on above: Order Comment: 109-1 Performed By: #### L 100.0100 ####[facility] [address] [place], [address] Erythrocyte distribution width (RBC) [Ratio] 12.8 % Normal 11.6-14.6 [facility] Comment on above: Order Comment: 109-1 Performed By: #### L 100.0100 ####[facility] [address] [place], [address] Hematocrit (Bld) [Volume fraction] 40.7 % Normal 40-54 [facility] Comment on above: Order Comment: 109-1 Performed By: #### L 100.0100 ####[facility] [address] [place], [address] Hemoglobin (Bld) [Mass/Vol] 13.5 g/dL Normal 13.0-16.5 [facility] Comment on above: Order Comment: 109-1 Performed By: #### L 100.0100 ####[facility] [address] [place], [address] IG% 0.400 Normal 0.0-0.9 [facility] Comment on above: Order Comment: 109-1 Result Comment: IG% - Immature Granulocytes (promyelocytes, myelocytes andmetamyelocytes) > 1% indicates that a LEFT SHIFT is Present. Performed By: #### L 100.0100 ####[facility] [address] [place], [address] Lymphocytes/100 WBC (Bld) 20.2 % Normal 19-41 [facility] Comment on above: Order Comment: 109-1 Performed By: #### L 100.0100 ####[facility] [address] [place], [address] MCH (RBC) [Entitic mass] 29.9 pg Normal 27.0-32.0 [facility] Comment on above: Order Comment: 109-1 Performed By: #### L 100.0100 ####[facility] [address] [place], [address] MCHC (RBC) [Mass/Vol] 33.2 g/dL Normal 32-36 [facility] Comment on above: Order Comment: 109-1 Performed By: #### L 100.0100 ####[facility] [address] [place], [address] MCV (RBC) [Entitic vol] 90.0 fL Normal 80-94 [facility] Comment on above: Order Comment: 109-1 Performed By: #### L 100.0100 ####[facility] [address] [place], [address] Monocytes/100 WBC (Bld) 7.1 % Normal 0-10 [facility] Comment on above: Order Comment: 109-1 Performed By: #### L 100.0100 ####[facility] [address] [place], [address] Neutrophils/100 WBC (Bld) 71.1 % High 47-70 [facility] Comment on above: Order Comment: 109-1 Performed By: #### L 100.0100 ####[facility] [address] [place], [address] Nucleated RBC (Bld) [#/Vol] 0 10*3/uL Normal 0-5 [facility] Comment on above: Order Comment: 109-1 Performed By: #### L 100.0100 ####[facility] [address] [place], [address] Platelet mean volume (Bld) [Entitic vol] 11.2 fL Normal 6.2-12.0 [facility] Comment on above: Order Comment: 109-1 Performed By: #### L 100.0100 ####[facility] [address] [place], [address] Platelets (Bld) [#/Vol] 218 10*3/uL Normal 150-450 [facility] Comment on above: Order Comment: 109-1 Performed By: #### L 100.0100 ####[facility] [address] [place], [address] RBC (Bld) [#/Vol] 4.52 10*6/uL Low 4.6-6.2 [facility] Comment on above: Order Comment: 109-1 Performed By: #### L 100.0100 ####[facility] [address] [place], [address] RDW SD 41.9 fl Normal 35.1-43.9 [facility] Comment on above: Order Comment: 109-1 Performed By: #### L 100.0100 ####[facility] [address] [place], [address] WBC (Bld) [#/Vol] 9.6 10*3/uL Normal 4.4-11.0 [facility] Comment on above: Order Comment: 109-1 Performed By: #### L 100.0100 ####[facility] [address], [address] Eosinophil percentageOrdered By: Renard Burgos on 07-29-2024 Eosinophils/100 WBC (Bld) 0.7 % 0-5 [facility] Erythrocyte distribution wid th ratioOrdered By: Renard Burgos on 07-29-2024 Erythrocyte distribution width (RBC) [Ratio] 12.8 % 11.6-14.6 [facility] Erythrocyte distribution wid th standard deviationOrdered By: Renard Burgos on 07-29-2024 Erythrocyte distribution width (RBC) [Entitic vol] 41.9 fL 35.1-43.9 [facility] Erythrocyte distribution width (RBC) [Ratio] 41.9 fl 35.1-43.9 [facility] Hematocrit Auto (Bld) [Volum e fraction]Ordered By: Renard Burgos on 07-29-2024 Hematocrit (Bld) [Volume fraction] 40.7 % 40-54 [facility] Hemoglobin measurementOrdere d By: Renard Burgos on 07-29-2024 Hemoglobin (Bld) [Mass/Vol] 13.5 g/dL 13.0-16.5 [facility] Immature granulocytes/100 WB C Auto (Bld)Ordered By: Renard Burgos on 07-29-2024 Immature granulocytes/100 WBC (Bld) 0.400 % 0.0-0.9 [facility] Comment on above: IG% - Immature Granu locytes (promyelocytes, myelocytes and metamyelocytes) > 1% indicates that a LEFT SHIFT is Present. Lymphocytes Auto (Unsp spec) [#/Vol]Ordered By: Renard Burgos on 07-29-2024 Lymphocytes (Bld) [#/Vol] 1.93 10*3/uL 0.83-4.51 [facility] Lymphocytes/100 WBC Auto (Un sp spec)Ordered By: Renard Burgos on 07-29-2024 Lymphocytes/100 WBC (Bld) 20.2 % 19-41 [facility] MCV (mean corpuscular volume ) determinationOrdered By: Renard Burgos on 07-29-2024 MCV (RBC) [Entitic vol] 90.0 fL 80-94 [facility] Mean corpuscular hemoglobin (MCH) determinationOrdered By: Renard Burgos on 07-29-2024 MCH (RBC) [Entitic mass] 29.9 pg 27.0-32.0 [facility] Mean corpuscular hemoglobin concentration (MCHC) determinationOrdered By: Renard Burgos on 07-29-2024 MCHC (RBC) [Mass/Vol] 33.2 g/dL 32-36 [facility] Mean platelet volume determi nationOrdered By: Renard Burgos on 07-29-2024 Platelet mean volume (Bld) [Entitic vol] 11.2 fL 6.2-12.0 [facility] Monocyte percentageOrdered B y: Renard Burgos on 07-29-2024 Monocytes/100 WBC (Bld) 7.1 % 0-10 [facility] Neutrophil percentageOrdered By: Renard Burgos on 07-29-2024 Neutrophils/100 WBC (Bld) 71.1 % High 47-70 [facility] Nucleated red blood cell per centageOrdered By: Renard Burgos on 07-29-2024 Nucleated RBC/100 WBC (Bld) [Ratio] 0 % 0-5 [facility] Platelet countOrdered By: Garrick Bhatt on 07-29-2024 Platelets (Bld) [#/Vol] 218 10*3/uL 150-450 [facility] RBC Auto (Bld) [#/Vol]Ordere d By: Renard Burgos on 07-29-2024 RBC (Bld) [#/Vol] 4.52 10*6/uL Low 4.6-6.2 [facility] White blood cell (WBC) count Ordered By: Renard Burgos on 07-29-2024 WBC (Bld) [#/Vol] 9.6 10*3/uL 4.4-11.0 [facility] Absolute lymphocyte countOrd ered By: Renard Hensleyrustam on 07-22-2024 Lymphocytes Auto (Unsp spec) [#/Vol] 1.90 10*3/uL 0.83-4.51 [facility] Absolute neutrophil countOrd ered By: Renard Burgos on 07-22-2024 Neutrophils (Bld) [#/Vol] 5.2 10*3/uL 2.0-7.7 [facility] Automated lymphocyte count a s percentage of total leukocytesOrdered By: Renard Burgos on 07-22-2024 Lymphocytes/100 WBC Auto (Unsp spec) 23.9 % 19-41 [facility] Basophil percentageOrdered B y: Renard Burgos on 07-22-2024 Basophils/100 WBC (Bld) 0.6 % 0-1 [facility] CBC W/Diff, Automatedon 06-30 Absolute Lymph 1.90 X10 3/uL Normal 0.83-4.51 [facility] Comment on above: Order Comment: 109.1 Performed By: #### L 100.0100 ####[facility] [address] [place], [address] Absolute Neut 5.2 X10 3/uL Normal 2.0-7.7 [facility] Comment on above: Order Comment: 109.1 Performed By: #### L 100.0100 ####[facility] [address] [place], [address] Basophils/100 WBC (Bld) 0.6 % Normal 0-1 [facility] Comment on above: Order Comment: 109.1 Performed By: #### L 100.0100 ####[facility] [address] [place], [address] Eosinophils/100 WBC (Bld) 0.9 % Normal 0-5 [facility] Comment on above: Order Comment: 109.1 Performed By: #### L 100.0100 ####[facility] [address] [place], [address] Erythrocyte distribution width (RBC) [Ratio] 12.9 % Normal 11.6-14.6 [facility] Comment on above: Order Comment: 109.1 Performed By: #### L 100.0100 ####[facility] [address] [place], [address] Hematocrit (Bld) [Volume fraction] 41.4 % Normal 40-54 [facility] Comment on above: Order Comment: 109.1 Performed By: #### L 100.0100 ####[facility] [address] [place], [address] Hemoglobin (Bld) [Mass/Vol] 13.5 g/dL Normal 13.0-16.5 [facility] Comment on above: Order Comment: 109.1 Performed By: #### L 100.0100 ####[facility] [address] [place], [address] IG% 0.300 Normal 0.0-0.9 [facility] Comment on above: Order Comment: 109.1 Result Comment: IG% - Immature Granulocytes (promyelocytes, myelocytes andmetamyelocytes) > 1% indicates that a LEFT SHIFT is Present. Performed By: #### L 100.0100 ####[facility] [address] [place], [address] Lymphocytes/100 WBC (Bld) 23.9 % Normal 19-41 [facility] Comment on above: Order Comment: 109.1 Performed By: #### L 100.0100 ####[facility] [address] [place], [address] MCH (RBC) [Entitic mass] 29.8 pg Normal 27.0-32.0 [facility] Comment on above: Order Comment: 109.1 Performed By: #### L 100.0100 ####[facility] [address] [place], [address] MCHC (RBC) [Mass/Vol] 32.6 g/dL Normal 32-36 [facility] Comment on above: Order Comment: 109.1 Performed By: #### L 100.0100 ####[facility] [address] [place], [address] MCV (RBC) [Entitic vol] 91.4 fL Normal 80-94 [facility] Comment on above: Order Comment: 109.1 Performed By: #### L 100.0100 ####[facility] [address] [place], [address] Monocytes/100 WBC (Bld) 9.4 % Normal 0-10 [facility] Comment on above: Order Comment: 109.1 Performed By: #### L 100.0100 ####[facility] [address] [place], [address] Neutrophils/100 WBC (Bld) 64.9 % Normal 47-70 [facility] Comment on above: Order Comment: 109.1 Performed By: #### L 100.0100 ####[facility] [address] [place], [address] Nucleated RBC (Bld) [#/Vol] 0 10*3/uL Normal 0-5 [facility] Comment on above: Order Comment: 109.1 Performed By: #### L 100.0100 ####[facility] [address] [place], [address] Platelet mean volume (Bld) [Entitic vol] 11.5 fL Normal 6.2-12.0 [facility] Comment on above: Order Comment: 109.1 Performed By: #### L 100.0100 ####[facility] [address] [place], [address] Platelets (Bld) [#/Vol] 202 10*3/uL Normal 150-450 [facility] Comment on above: Order Comment: 109.1 Performed By: #### L 100.0100 ####[facility] [address] [place], [address] RBC (Bld) [#/Vol] 4.53 10*6/uL Low 4.6-6.2 [facility] Comment on above: Order Comment: 109.1 Performed By: #### L 100.0100 ####[facility] [address] [place], [address] RDW SD 42.7 fl Normal 35.1-43.9 [facility] Comment on above: Order Comment: 109.1 Performed By: #### L 100.0100 ####[facility] [address] [place], [address] WBC (Bld) [#/Vol] 8.0 10*3/uL Normal 4.4-11.0 [facility] Comment on above: Order Comment: 109.1 Performed By: #### L 100.0100 ####[facility] [address] [place], [address] Eosinophil percentageOrdered By: Renard Burgos on 07-22-2024 Eosinophils/100 WBC (Bld) 0.9 % 0-5 [facility] Erythrocyte distribution wid th ratioOrdered By: Renard Burgos on 07-22-2024 Erythrocyte distribution width (RBC) [Ratio] 12.9 % 11.6-14.6 [facility] Erythrocyte distribution wid th standard deviationOrdered By: Renard Burgos on 07-22-2024 Erythrocyte distribution width (RBC) [Entitic vol] 42.7 fL 35.1-43.9 [facility] Erythrocyte distribution width (RBC) [Ratio] 42.7 fl 35.1-43.9 [facility] Hematocrit Auto (Bld) [Volum e fraction]Ordered By: Renard Burgos on 07-22-2024 Hematocrit (Bld) [Volume fraction] 41.4 % 40-54 [facility] Hemoglobin measurementOrdere d By: Renard Burgos on 07-22-2024 Hemoglobin (Bld) [Mass/Vol] 13.5 g/dL 13.0-16.5 [facility] Immature granulocytes/100 WB C Auto (Bld)Ordered By: Renard Burgos on 07-22-2024 Immature granulocytes/100 WBC (Bld) 0.300 % 0.0-0.9 [facility] Comment on above: IG% - Immature Granu locytes (promyelocytes, myelocytes and metamyelocytes) > 1% indicates that a LEFT SHIFT is Present. Lymphocytes Auto (Unsp spec) [#/Vol]Ordered By: Renard Burgos on 07-22-2024 Lymphocytes (Bld) [#/Vol] 1.90 10*3/uL 0.83-4.51 [facility] Lymphocytes/100 WBC Auto (Un sp spec)Ordered By: Renard Burgos on 07-22-2024 Lymphocytes/100 WBC (Bld) 23.9 % 19-41 [facility] MCV (mean corpuscular volume ) determinationOrdered By: Renard Burgos on 07-22-2024 MCV (RBC) [Entitic vol] 91.4 fL 80-94 [facility] Mean corpuscular hemoglobin (MCH) determinationOrdered By: Renard Burgos on 07-22-2024 MCH (RBC) [Entitic mass] 29.8 pg 27.0-32.0 [facility] Mean corpuscular hemoglobin concentration (MCHC) determinationOrdered By: Renard Burgos on 07-22-2024 MCHC (RBC) [Mass/Vol] 32.6 g/dL 32-36 [facility] Mean platelet volume determi nationOrdered By: Renard Burgos on 07-22-2024 Platelet mean volume (Bld) [Entitic vol] 11.5 fL 6.2-12.0 [facility] Monocyte percentageOrdered B y: Renard Burgos on 07-22-2024 Monocytes/100 WBC (Bld) 9.4 % 0-10 [facility] Neutrophil percentageOrdered By: Renard Burgos on 07-22-2024 Neutrophils/100 WBC (Bld) 64.9 % 47-70 [facility] Nucleated red blood cell per centageOrdered By: Renard Burgos on 07-22-2024 Nucleated RBC/100 WBC (Bld) [Ratio] 0 % 0-5 [facility] Platelet countOrdered By: Garrick Bhatt on 07-22-2024 Platelets (Bld) [#/Vol] 202 10*3/uL 150-450 [facility] RBC Auto (Bld) [#/Vol]Ordere d By: Renard Burgos on 07-22-2024 RBC (Bld) [#/Vol] 4.53 10*6/uL Low 4.6-6.2 [facility] White blood cell (WBC) count Ordered By: Renard Burgos on 07-22-2024 WBC (Bld) [#/Vol] 8.0 10*3/uL 4.4-11.0 [facility] L506.1001on 07-16-2024 Vitamin D 25-OH 21.8 ng/mL Low 30-100 [facility] Comment on above: Order Comment: 109 Result Comment: Edilma min D StatusDeficiency: <20 ng/mL (50nmol/L)Insufficiency: 20-30 ng/mL (50-75 nmol/L)Sufficiency: 30-100 ng/mL (75-250 nmol/L)Toxicity: >100 ng/mL (>250 nmol/L) Performed By: #### L 506.1001 ####[facility] [address] [place], [address] Vitamin D, 25-hydroxyOrdered By: Renard Burgos on 07-16-2024 Vitamin D 25-Hydroxy 21.8 ng/mL Low 30-100 [facility] Comment on above: Vitamin D StatusDefi ciency: <20 ng/mL (50nmol/L)Insufficiency: 20-30 ng/mL (50-75 nmol/L)Sufficiency: 30-100 ng/mL (75-250 nmol/L)Toxicity: >100 ng/mL (>250 nmol/L) Absolute lymphocyte countOrd ered By: Renard Burgos on 07-15-2024 Lymphocytes Auto (Unsp spec) [#/Vol] 2.10 10*3/uL 0.83-4.51 [facility] Absolute neutrophil countOrd ered By: Renard Burgos on 07-15-2024 Neutrophils (Bld) [#/Vol] 6.9 10*3/uL 2.0-7.7 [facility] Automated lymphocyte count a s percentage of total leukocytesOrdered By: Renard Amezquitahola on 07-15-2024 Lymphocytes/100 WBC Auto (Unsp spec) 21.0 % 19-41 [facility] Basophil percentageOrdered B y: Renard Hensleyrustam on 07-15-2024 Basophils/100 WBC (Bld) 0.5 % 0-1 [facility] CBC W/Diff, Automatedon 06-29 Absolute Lymph 2.10 X10 3/uL Normal 0.83-4.51 [facility] Comment on above: Order Comment: 109.1 Performed By: #### L 100.0100 ####[facility] [address] [place], [address] Absolute Neut 6.9 X10 3/uL Normal 2.0-7.7 [facility] Comment on above: Order Comment: 109.1 Performed By: #### L 100.0100 ####[facility] [address] [place], [address] Basophils/100 WBC (Bld) 0.5 % Normal 0-1 [facility] Comment on above: Order Comment: 109.1 Performed By: #### L 100.0100 ####[facility] [address] [place], [address] Eosinophils/100 WBC (Bld) 1.2 % Normal 0-5 [facility] Comment on above: Order Comment: 109.1 Performed By: #### L 100.0100 ####[facility] [address] [place], [address] Erythrocyte distribution width (RBC) [Ratio] 12.9 % Normal 11.6-14.6 [facility] Comment on above: Order Comment: 109.1 Performed By: #### L 100.0100 ####[facility] [address] [place], [address] Hematocrit (Bld) [Volume fraction] 41.0 % Normal 40-54 [facility] Comment on above: Order Comment: 109.1 Performed By: #### L 100.0100 ####[facility] [address] [place], [address] Hemoglobin (Bld) [Mass/Vol] 13.4 g/dL Normal 13.0-16.5 [facility] Comment on above: Order Comment: 109.1 Performed By: #### L 100.0100 ####[facility] [address] [place], [address] IG% 0.300 Normal 0.0-0.9 [facility] Comment on above: Order Comment: 109.1 Result Comment: IG% - Immature Granulocytes (promyelocytes, myelocytes andmetamyelocytes) > 1% indicates that a LEFT SHIFT is Present. Performed By: #### L 100.0100 ####[facility] [address] [place], [address] Lymphocytes/100 WBC (Bld) 21.0 % Normal 19-41 [facility] Comment on above: Order Comment: 109.1 Performed By: #### L 100.0100 ####[facility] [address] [place], [address] MCH (RBC) [Entitic mass] 29.7 pg Normal 27.0-32.0 [facility] Comment on above: Order Comment: 109.1 Performed By: #### L 100.0100 ####[facility] [address] [place], [address] MCHC (RBC) [Mass/Vol] 32.7 g/dL Normal 32-36 [facility] Comment on above: Order Comment: 109.1 Performed By: #### L 100.0100 ####[facility] [address] [place], [address] MCV (RBC) [Entitic vol] 90.9 fL Normal 80-94 [facility] Comment on above: Order Comment: 109.1 Performed By: #### L 100.0100 ####[facility] [address] [place], [address] Monocytes/100 WBC (Bld) 7.6 % Normal 0-10 [facility] Comment on above: Order Comment: 109.1 Performed By: #### L 100.0100 ####[facility] [address] [place], [address] Neutrophils/100 WBC (Bld) 69.4 % Normal 47-70 [facility] Comment on above: Order Comment: 109.1 Performed By: #### L 100.0100 ####[facility] [address] [place], [address] Nucleated RBC (Bld) [#/Vol] 0 10*3/uL Normal 0-5 [facility] Comment on above: Order Comment: 109.1 Performed By: #### L 100.0100 ####[facility] [address] [place], [address] Platelet mean volume (Bld) [Entitic vol] 11.4 fL Normal 6.2-12.0 [facility] Comment on above: Order Comment: 109.1 Performed By: #### L 100.0100 ####[facility] [address] [place], [address] Platelets (Bld) [#/Vol] 206 10*3/uL Normal 150-450 [facility] Comment on above: Order Comment: 109.1 Performed By: #### L 100.0100 ####[facility] [address] [place], [address] RBC (Bld) [#/Vol] 4.51 10*6/uL Low 4.6-6.2 [facility] Comment on above: Order Comment: 109.1 Performed By: #### L 100.0100 ####[facility] [address] [place], [address] RDW SD 42.3 fl Normal 35.1-43.9 [facility] Comment on above: Order Comment: 109.1 Performed By: #### L 100.0100 ####[facility] [address] [place], [address] WBC (Bld) [#/Vol] 10.0 10*3/uL Normal 4.4-11.0 [facility] Comment on above: Order Comment: 109.1 Performed By: #### L 100.0100 ####[facility] [address] [place], [address] Eosinophil percentageOrdered By: Renard Burgos on 07-15-2024 Eosinophils/100 WBC (Bld) 1.2 % 0-5 [facility] Erythrocyte distribution wid th ratioOrdered By: Renard Burgos on 07-15-2024 Erythrocyte distribution width (RBC) [Ratio] 12.9 % 11.6-14.6 [facility] Erythrocyte distribution wid th standard deviationOrdered By: Renard Burgos on 07-15-2024 Erythrocyte distribution width (RBC) [Entitic vol] 42.3 fL 35.1-43.9 [facility] Erythrocyte distribution width (RBC) [Ratio] 42.3 fl 35.1-43.9 [facility] Hematocrit Auto (Bld) [Volum e fraction]Ordered By: Renard Burgos on 07-15-2024 Hematocrit (Bld) [Volume fraction] 41.0 % 40-54 [facility] Hemoglobin measurementOrdere d By: Renard Burgos on 07-15-2024 Hemoglobin (Bld) [Mass/Vol] 13.4 g/dL 13.0-16.5 [facility] Immature granulocytes/100 WB C Auto (Bld)Ordered By: Renard Burgos on 07-15-2024 Immature granulocytes/100 WBC (Bld) 0.300 % 0.0-0.9 [facility] Comment on above: IG% - Immature Granu locytes (promyelocytes, myelocytes and metamyelocytes) > 1% indicates that a LEFT SHIFT is Present. Lymphocytes Auto (Unsp spec) [#/Vol]Ordered By: Renard Burgos on 07-15-2024 Lymphocytes (Bld) [#/Vol] 2.10 10*3/uL 0.83-4.51 [facility] Lymphocytes/100 WBC Auto (Un sp spec)Ordered By: Renard Burgos on 07-15-2024 Lymphocytes/100 WBC (Bld) 21.0 % 19-41 [facility] MCV (mean corpuscular volume ) determinationOrdered By: Renard Burgos on 07-15-2024 MCV (RBC) [Entitic vol] 90.9 fL 80-94 [facility] Mean corpuscular hemoglobin (MCH) determinationOrdered By: Renard Burgos on 07-15-2024 MCH (RBC) [Entitic mass] 29.7 pg 27.0-32.0 [facility] Mean corpuscular hemoglobin concentration (MCHC) determinationOrdered By: Renard Burgos on 07-15-2024 MCHC (RBC) [Mass/Vol] 32.7 g/dL 32-36 [facility] Mean platelet volume determi nationOrdered By: Renard Burgos on 07-15-2024 Platelet mean volume (Bld) [Entitic vol] 11.4 fL 6.2-12.0 [facility] Monocyte percentageOrdered B y: Renard Burgos on 07-15-2024 Monocytes/100 WBC (Bld) 7.6 % 0-10 [facility] Neutrophil percentageOrdered By: Renard Burgos on 07-15-2024 Neutrophils/100 WBC (Bld) 69.4 % 47-70 [facility] Nucleated red blood cell per centageOrdered By: Renard Burgos on 07-15-2024 Nucleated RBC/100 WBC (Bld) [Ratio] 0 % 0-5 [facility] Platelet countOrdered By: Garrick Bhatt on 07-15-2024 Platelets (Bld) [#/Vol] 206 10*3/uL 150-450 [facility] RBC Auto (Bld) [#/Vol]Ordere d By: Renard Burgos on 07-15-2024 RBC (Bld) [#/Vol] 4.51 10*6/uL Low 4.6-6.2 [facility] White blood cell (WBC) count Ordered By: Renard Burgos on 07-15-2024 WBC (Bld) [#/Vol] 10.0 10*3/uL 4.4-11.0 [facility] Absolute lymphocyte countOrd ered By: Renard Burgos on 07-08-2024 Lymphocytes Auto (Unsp spec) [#/Vol] 2.02 10*3/uL 0.83-4.51 [facility] Absolute neutrophil countOrd ered By: Renard Burgos on 07-08-2024 Neutrophils (Bld) [#/Vol] 7.2 10*3/uL 2.0-7.7 [facility] Automated lymphocyte count a s percentage of total leukocytesOrdered By: Renard Burgos on 07-08-2024 Lymphocytes/100 WBC Auto (Unsp spec) 19.7 % 19-41 [facility] Basophil percentageOrdered B y: Renard Burgos on 07-08-2024 Basophils/100 WBC (Bld) 0.6 % 0-1 [facility] CBC W/Diff, Automatedon 06-29-2024 Absolute Lymph 2.02 X10 3/uL Normal 0.83-4.51 [facility] Comment on above: Order Comment: 109-1 Performed By: #### L 100.0100 ####[facility] [address] [place], [address] Absolute Neut 7.2 X10 3/uL Normal 2.0-7.7 [facility] Comment on above: Order Comment: 109-1 Performed By: #### L 100.0100 ####[facility] [address] [place], [address] Basophils/100 WBC (Bld) 0.6 % Normal 0-1 [facility] Comment on above: Order Comment: 109-1 Performed By: #### L 100.0100 ####[facility] [address] [place], [address] Eosinophils/100 WBC (Bld) 1.5 % Normal 0-5 [facility] Comment on above: Order Comment: 109-1 Performed By: #### L 100.0100 ####[facility] [address] [place], [address] Erythrocyte distribution width (RBC) [Ratio] 12.9 % Normal 11.6-14.6 [facility] Comment on above: Order Comment: 109-1 Performed By: #### L 100.0100 ####[facility] [address] [place], [address] Hematocrit (Bld) [Volume fraction] 40.6 % Normal 40-54 [facility] Comment on above: Order Comment: 109-1 Performed By: #### L 100.0100 ####[facility] [address] [place], [address] Hemoglobin (Bld) [Mass/Vol] 13.6 g/dL Normal 13.0-16.5 [facility] Comment on above: Order Comment: 109-1 Performed By: #### L 100.0100 ####[facility] [address] [place], [address] IG% 0.500 Normal 0.0-0.9 [facility] Comment on above: Order Comment: 109-1 Result Comment: IG% - Immature Granulocytes (promyelocytes, myelocytes andmetamyelocytes) > 1% indicates that a LEFT SHIFT is Present. Performed By: #### L 100.0100 ####[facility] [address] [place], [address] Lymphocytes/100 WBC (Bld) 19.7 % Normal 19-41 [facility] Comment on above: Order Comment: 109-1 Performed By: #### L 100.0100 ####[facility] [address] [place], [address] MCH (RBC) [Entitic mass] 30.5 pg Normal 27.0-32.0 [facility] Comment on above: Order Comment: 109-1 Performed By: #### L 100.0100 ####[facility] [address] [place], [address] MCHC (RBC) [Mass/Vol] 33.5 g/dL Normal 32-36 [facility] Comment on above: Order Comment: 109-1 Performed By: #### L 100.0100 ####[facility] [address] [place], [address] MCV (RBC) [Entitic vol] 91.0 fL Normal 80-94 [facility] Comment on above: Order Comment: 109-1 Performed By: #### L 100.0100 ####[facility] [address] [place], [address] Monocytes/100 WBC (Bld) 7.4 % Normal 0-10 [facility] Comment on above: Order Comment: 109-1 Performed By: #### L 100.0100 ####[facility] [address] [place], [address] Neutrophils/100 WBC (Bld) 70.3 % High 47-70 [facility] Comment on above: Order Comment: 109-1 Performed By: #### L 100.0100 ####[facility] [address] [place], [address] Nucleated RBC (Bld) [#/Vol] 0 10*3/uL Normal 0-5 [facility] Comment on above: Order Comment: 109-1 Performed By: #### L 100.0100 ####[facility] [address] [place], [address] Platelet mean volume (Bld) [Entitic vol] 11.1 fL Normal 6.2-12.0 [facility] Comment on above: Order Comment: 109-1 Performed By: #### L 100.0100 ####[facility] [address] [place], [address] Platelets (Bld) [#/Vol] 207 10*3/uL Normal 150-450 [facility] Comment on above: Order Comment: 109-1 Performed By: #### L 100.0100 ####[facility] [address] [place], [address] RBC (Bld) [#/Vol] 4.46 10*6/uL Low 4.6-6.2 [facility] Comment on above: Order Comment: 109-1 Performed By: #### L 100.0100 ####[facility] [address] [place], [address] RDW SD 42.5 fl Normal 35.1-43.9 [facility] Comment on above: Order Comment: 109-1 Performed By: #### L 100.0100 ####[facility] [address] [place], [address] WBC (Bld) [#/Vol] 10.3 10*3/uL Normal 4.4-11.0 [facility] Comment on above: Order Comment: 109-1 Performed By: #### L 100.0100 ####[facility] [address] [place], [address] Eosinophil percentageOrdered By: Renard Burgos on 07-08-2024 Eosinophils/100 WBC (Bld) 1.5 % 0-5 [facility] Erythrocyte distribution wid th ratioOrdered By: Renard Burgos on 07-08-2024 Erythrocyte distribution width (RBC) [Ratio] 12.9 % 11.6-14.6 [facility] Erythrocyte distribution wid th standard deviationOrdered By: Renard Burgos on 07-08-2024 Erythrocyte distribution width (RBC) [Entitic vol] 42.5 fL 35.1-43.9 [facility] Erythrocyte distribution width (RBC) [Ratio] 42.5 fl 35.1-43.9 [facility] Hematocrit Auto (Bld) [Volum e fraction]Ordered By: Renard Burgos on 07-08-2024 Hematocrit (Bld) [Volume fraction] 40.6 % 40-54 [facility] Hemoglobin measurementOrdere d By: Renard Burgos on 07-08-2024 Hemoglobin (Bld) [Mass/Vol] 13.6 g/dL 13.0-16.5 [facility] Immature granulocytes/100 WB C Auto (Bld)Ordered By: Renard Burgos on 07-08-2024 Immature granulocytes/100 WBC (Bld) 0.500 % 0.0-0.9 [facility] Comment on above: IG% - Immature Granu locytes (promyelocytes, myelocytes and metamyelocytes) > 1% indicates that a LEFT SHIFT is Present. Lymphocytes Auto (Unsp spec) [#/Vol]Ordered By: Renard Burgos on 07-08-2024 Lymphocytes (Bld) [#/Vol] 2.02 10*3/uL 0.83-4.51 [facility] Lymphocytes/100 WBC Auto (Un sp spec)Ordered By: Renard Burgos on 07-08-2024 Lymphocytes/100 WBC (Bld) 19.7 % 19-41 [facility] MCV (mean corpuscular volume ) determinationOrdered By: Renard Burgos on 07-08-2024 MCV (RBC) [Entitic vol] 91.0 fL 80-94 [facility] Mean corpuscular hemoglobin (MCH) determinationOrdered By: Renard Burgos on 07-08-2024 MCH (RBC) [Entitic mass] 30.5 pg 27.0-32.0 [facility] Mean corpuscular hemoglobin concentration (MCHC) determinationOrdered By: Renard Burgos on 07-08-2024 MCHC (RBC) [Mass/Vol] 33.5 g/dL 32-36 [facility] Mean platelet volume determi nationOrdered By: Renard Burgos on 07-08-2024 Platelet mean volume (Bld) [Entitic vol] 11.1 fL 6.2-12.0 [facility] Monocyte percentageOrdered B y: Renard Burgos on 07-08-2024 Monocytes/100 WBC (Bld) 7.4 % 0-10 [facility] Neutrophil percentageOrdered By: Renard Burgos on 07-08-2024 Neutrophils/100 WBC (Bld) 70.3 % High 47-70 [facility] Nucleated red blood cell per centageOrdered By: Renard Burgos on 07-08-2024 Nucleated RBC/100 WBC (Bld) [Ratio] 0 % 0-5 [facility] Platelet countOrdered By: Garrick Bhatt on 07-08-2024 Platelets (Bld) [#/Vol] 207 10*3/uL 150-450 [facility] RBC Auto (Bld) [#/Vol]Ordere d By: Renard Burgos on 07-08-2024 RBC (Bld) [#/Vol] 4.46 10*6/uL Low 4.6-6.2 [facility] White blood cell (WBC) count Ordered By: Renard Burgos on 07-08-2024 WBC (Bld) [#/Vol] 10.3 10*3/uL 4.4-11.0 [facility] Absolute lymphocyte countOrd ered By: Renard Burgos on 07-01-2024 Lymphocytes Auto (Unsp spec) [#/Vol] 2.03 10*3/uL 0.83-4.51 [facility] Absolute neutrophil countOrd ered By: Renard Burgos on 07-01-2024 Neutrophils (Bld) [#/Vol] 7.0 10*3/uL 2.0-7.7 [facility] Automated lymphocyte count a s percentage of total leukocytesOrdered By: Renard Burgos on 07-01-2024 Lymphocytes/100 WBC Auto (Unsp spec) 20.3 % 19-41 [facility] Basophil percentageOrdered B y: Renard Burgos on 07-01-2024 Basophils/100 WBC (Bld) 0.6 % 0-1 [facility] CBC W/Diff, Automatedon Absolute Lymph 2.03 X10 3/uL Normal 0.83-4.51 [facility] Comment on above: Order Comment: 109 Performed By: #### L 100.0100 ####[facility] [address] [place], [place], [address] Absolute Neut 7.0 X10 3/uL Normal 2.0-7.7 [facility] Comment on above: Order Comment: 109 Performed By: #### L 100.0100 ####[facility] [address] [place], [address] Basophils/100 WBC (Bld) 0.6 % Normal 0-1 [facility] Comment on above: Order Comment: 109 Performed By: #### L 100.0100 ####[facility] [address] [place], [address] Eosinophils/100 WBC (Bld) 1.3 % Normal 0-5 [facility] Comment on above: Order Comment: 109 Performed By: #### L 100.0100 ####[facility] [address] [place], [address] Erythrocyte distribution width (RBC) [Ratio] 13.1 % Normal 11.6-14.6 [facility] Comment on above: Order Comment: 109 Performed By: #### L 100.0100 ####[facility] [address] [place], [address] Hematocrit (Bld) [Volume fraction] 41.7 % Normal 40-54 [facility] Comment on above: Order Comment: 109 Performed By: #### L 100.0100 ####[facility] [address] [place], [address] Hemoglobin (Bld) [Mass/Vol] 13.6 g/dL Normal 13.0-16.5 [facility] Comment on above: Order Comment: 109 Performed By: #### L 100.0100 ####[facility] [address] [place], [address] IG% 0.500 Normal 0.0-0.9 [facility] Comment on above: Order Comment: 109 Result Comment: IG% - Immature Granulocytes (promyelocytes, myelocytes andmetamyelocytes) > 1% indicates that a LEFT SHIFT is Present. Performed By: #### L 100.0100 ####[facility] [address] [place], [address] Lymphocytes/100 WBC (Bld) 20.3 % Normal 19-41 [facility] Comment on above: Order Comment: 109 Performed By: #### L 100.0100 ####[facility] [address] [place], [address] MCH (RBC) [Entitic mass] 29.6 pg Normal 27.0-32.0 [facility] Comment on above: Order Comment: 109 Performed By: #### L 100.0100 ####[facility] [address] [place], [address] MCHC (RBC) [Mass/Vol] 32.6 g/dL Normal 32-36 [facility] Comment on above: Order Comment: 109 Performed By: #### L 100.0100 ####[facility] [address] [place], [address] MCV (RBC) [Entitic vol] 90.8 fL Normal 80-94 [facility] Comment on above: Order Comment: 109 Performed By: #### L 100.0100 ####[facility] [address] [place], [address] Monocytes/100 WBC (Bld) 6.8 % Normal 0-10 [facility] Comment on above: Order Comment: 109 Performed By: #### L 100.0100 ####[facility] [address] [place], [address] Neutrophils/100 WBC (Bld) 70.5 % High 47-70 [facility] Comment on above: Order Comment: 109 Performed By: #### L 100.0100 ####[facility] [address] [place], [address] Nucleated RBC (Bld) [#/Vol] 0 10*3/uL Normal 0-5 [facility] Comment on above: Order Comment: 109 Performed By: #### L 100.0100 ####[facility] [address] [place], [address] Platelet mean volume (Bld) [Entitic vol] 11.0 fL Normal 6.2-12.0 [facility] Comment on above: Order Comment: 109 Performed By: #### L 100.0100 ####[facility] [address] [place], [address] Platelets (Bld) [#/Vol] 208 10*3/uL Normal 150-450 [facility] Comment on above: Order Comment: 109 Performed By: #### L 100.0100 ####[facility] [address] [place], [address] RBC (Bld) [#/Vol] 4.59 10*6/uL Low 4.6-6.2 [facility] Comment on above: Order Comment: 109 Performed By: #### L 100.0100 ####[facility] [address] [place], [address] RDW SD 42.8 fl Normal 35.1-43.9 [facility] Comment on above: Order Comment: 109 Performed By: #### L 100.0100 ####[facility] [address] [place], [address] WBC (Bld) [#/Vol] 10.0 10*3/uL Normal 4.4-11.0 [facility] Comment on above: Order Comment: 109 Performed By: #### L 100.0100 ####[facility] [address] [place], [address] Eosinophil percentageOrdered By: Renard Burgos on 07-01-2024 Eosinophils/100 WBC (Bld) 1.3 % 0-5 [facility] Erythrocyte distribution wid th ratioOrdered By: Renard Burgos on 07-01-2024 Erythrocyte distribution width (RBC) [Ratio] 13.1 % 11.6-14.6 [facility] Erythrocyte distribution wid th standard deviationOrdered By: Renard Burgos on 07-01-2024 Erythrocyte distribution width (RBC) [Entitic vol] 42.8 fL 35.1-43.9 [facility] Erythrocyte distribution width (RBC) [Ratio] 42.8 fl 35.1-43.9 [facility] Hematocrit Auto (Bld) [Volum e fraction]Ordered By: Renard Burgos on 07-01-2024 Hematocrit (Bld) [Volume fraction] 41.7 % 40-54 [facility] Hemoglobin measurementOrdere d By: Renard Burgos on 07-01-2024 Hemoglobin (Bld) [Mass/Vol] 13.6 g/dL 13.0-16.5 [facility] Immature granulocytes/100 WB C Auto (Bld)Ordered By: Renard Burgos on 07-01-2024 Immature granulocytes/100 WBC (Bld) 0.500 % 0.0-0.9 [facility] Comment on above: IG% - Immature Granu locytes (promyelocytes, myelocytes and metamyelocytes) > 1% indicates that a LEFT SHIFT is Present. Lymphocytes Auto (Unsp spec) [#/Vol]Ordered By: Renard Burgos on 07-01-2024 Lymphocytes (Bld) [#/Vol] 2.03 10*3/uL 0.83-4.51 [facility] Lymphocytes/100 WBC Auto (Un sp spec)Ordered By: Renard Burgos on 07-01-2024 Lymphocytes/100 WBC (Bld) 20.3 % 19-41 [facility] MCV (mean corpuscular volume ) determinationOrdered By: Renard Burgos on 07-01-2024 MCV (RBC) [Entitic vol] 90.8 fL 80-94 [facility] Mean corpuscular hemoglobin (MCH) determinationOrdered By: Renard Burgos on 07-01-2024 MCH (RBC) [Entitic mass] 29.6 pg 27.0-32.0 [facility] Mean corpuscular hemoglobin concentration (MCHC) determinationOrdered By: Renard Burgos on 07-01-2024 MCHC (RBC) [Mass/Vol] 32.6 g/dL 32-36 [facility] Mean platelet volume determi nationOrdered By: Renard Burgos on 07-01-2024 Platelet mean volume (Bld) [Entitic vol] 11.0 fL 6.2-12.0 [facility] Monocyte percentageOrdered B y: Renard Burgos on 07-01-2024 Monocytes/100 WBC (Bld) 6.8 % 0-10 [facility] Neutrophil percentageOrdered By: Renard Burgos on 07-01-2024 Neutrophils/100 WBC (Bld) 70.5 % High 47-70 [facility] Nucleated red blood cell per centageOrdered By: Renard Burgos on 07-01-2024 Nucleated RBC/100 WBC (Bld) [Ratio] 0 % 0-5 [facility] Platelet countOrdered By: Garrick Bhatt on 07-01-2024 Platelets (Bld) [#/Vol] 208 10*3/uL 150-450 [facility] RBC Auto (Bld) [#/Vol]Ordere d By: Renard Burgos on 07-01-2024 RBC (Bld) [#/Vol] 4.59 10*6/uL Low 4.6-6.2 [facility] White blood cell (WBC) count Ordered By: Renard Burgos on 07-01-2024 WBC (Bld) [#/Vol] 10.0 10*3/uL 4.4-11.0 [facility] Urine Cultureon 06-30-2024 URC Normal [facility] Comment on above: Performed By: #### M 100.2200, L400.0001 ####[facility] [address] [place], [address] Bilirubin Test strip Ql (U)O rdered By: Renard Burgos on 06-27-2024 Bilirubin Ql (U) Negative Negative [facility] Epithelial cells.squamous LM Ql (Urine sed)Ordered By: Renard Burgos on 06-27-2024 Epithelial cells.squamous LM.HPF (Urine sed) [#/Area] 0 /[HPF] 0-5 [facility] Glucose Ql (U)Ordered By: Garrick Bhatt on 06-27-2024 Urine Glucose (UA) Normal mg/dl Normal [facility] Ketones Test strip Ql (U)Ord ered By: Renard Burgos on 06-27-2024 Ketones Ql (U) Negative Negative [facility] Microscopic analysis of urin e for red blood cells (RBC)Ordered By: Renard Burgos on 06-27-2024 Microscopic analysis of urine for red blood cells (RBC) 0 SEEN /hpf 0-5 [facility] Urine RBC 0 SEEN /hpf 0-5 [facility] Mucus LM Ql (Urine sed)Order ed By: Renard Burgos on 06-27-2024 Mucus Ql (Urine sed) 0 SEEN /hpf [facility] Nitrite Test strip Ql (U)Ord ered By: Renard Burgos on 06-27-2024 Nitrite Ql (U) Negative Negative [facility] Protein Test strip Ql (U)Ord ered By: Renard Burgos on 06-27-2024 Protein Ql (U) 15 mg/dl High Negative [facility] Squamous epithelial cells de tection in urine sediment by light microscopyOrdered By: Renard Burgos on 06-27-2024 Epithelial cells.squamous LM Ql (Urine sed) 0 SEEN /hpf 0-5 [facility] Urinalysis, Completeon 06-27 RBC 0 SEEN Normal 0-5 [facility] Comment on above: Order Comment: [facility] SPECIMEN Performed By: #### M 100.2200, L400.0001 ####[facility] [address] [place], [address] Urine blood detectionOrdered By: Renard Burgso on 06-27-2024 Urine Occult Blood Negative Negative [facility] Urine clarityOrdered By: Lyubov Burgos on 06-27-2024 Clarity (U) Clear Clear [facility] Urine color determinationOrd ered By: Renard Burgos on 06-27-2024 Color (U) Yellow Yellow [facility] Urine cultureOrdered By: Lyubov Burgos on 06-27-2024 Bacteria identified Cx Nom (U) Staphylococcus warneri Abnormal [facility] Bacteria identified Cx Nom (U) Aerococcus viridans. Abnormal [facility] Bacteria identified Cx Nom (U) Presumptive C albicans Abnormal [facility] Bacteria identified Cx Nom (U) Staphylococcus warneri Abnormal [facility] Bacteria identified Cx Nom (U) Aerococcus viridans. Abnormal [facility] Bacteria identified Cx Nom (U) Presumptive C albicans Abnormal [facility] Urine glucose detectionOrder ed By: Renard Burgos on 06-27-2024 Glucose Ql (U) Normal mg/dl Normal [facility] Urine leukocyte esterase det ection by dipstickOrdered By: Renard Burgos on 06-27-2024 Leukocyte esterase Test strip Ql (U) Negative Negative [facility] Urine pHOrdered By: Renard ocampo on 06-27-2024 pH (U) 7.0 [pH] 5.0 - 8.0 [facility] Urine sediment bacteria coun t by microscopy (number/high power field)Ordered By: Renard Burgos on 06-27-2024 Bacteria LM.HPF (Urine sed) [#/Area] 0 /[HPF] None Seen [facility] Urine specific gravity measu rementOrdered By: Renard Burgos on 06-27-2024 Specific gravity (U) [Rel density] 1.010 1.002-1.030 [facility] Urine urobilinogen measureme ntOrdered By: Renard Burgos on 06-27-2024 Urobilinogen Ql (U) 4 mg/dl High Normal [facility] Urobilinogen Ql (U)Ordered B y: Renard Burgos on 06-27-2024 Urobilinogen (U) [Mass/Vol] 4 mg/dL High Normal [facility] White blood cell countOrdere d By: Renard Burgos on 06-27-2024 Urine WBC 0 SEEN /hpf 0-5 [facility] White blood cell count 0 SEEN /hpf 0-[address] [facility] [address] CHEST WO IV CONTRASTon [...] 8:07 AM EST Cough x 2months Normal [facility] CT Chest WO contraston 06-26 Nonspecific groundglass densities are noted in the bilateral lower lobes. 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 [facility] Maria Eugenia Ruiz MD - 06/26/2024 [facility] Name: [facility] 1955 [id number] Exam Date/Time: 06/24/2024 16:30 Procedure: CT CHEST [...] Electronically Signed Date/Time: 06/26/2024 8:07 AM EST [employer] CT Chest WO contrastOrdered By: Maria Eugenia Ruiz on 06-26-2024 [employer] Work Phone: Absolute lymphocyte countOrd ered By: Renard Burgos on 06-24-2024 Lymphocytes Auto (Unsp spec) [#/Vol] 1.65 10*3/uL 0.83-4.51 [facility] Absolute neutrophil countOrd ered By: Renard Burgos on 06-24-2024 Neutrophils (Bld) [#/Vol] 10.2 10*3/uL High 2.0-7.7 [facility] Automated lymphocyte count a s percentage of total leukocytesOrdered By: Renard Burgos on 06-24-2024 Lymphocytes/100 WBC Auto (Unsp spec) 12.8 % Low 19-41 [facility] Basic Metabolic Profile (BMP )on 06-24-2024 BUN/CRE 24.9 RATIO High 10-20 [facility] Comment on above: Order Comment: 109.1 Performed By: #### L 100.0100, L500.2500 ####[facility] [address] [place], [address] CA,Total 8.3 mg/dL Low 8.5-10.1 [facility] Comment on above: Order Comment: 109.1 Performed By: #### L 100.0100, L500.2500 ####[facility] [address] [place], [address] Chloride [Moles/Vol] 107 mmol/L Normal 98-107 [facility] Comment on above: Order Comment: 109.1 Performed By: #### L 100.0100, L500.2500 ####[facility] [address] [place], [address] CO2 [Moles/Vol] 24.0 mmol/L Normal 21.0-32.0 [facility] Comment on above: Order Comment: 109.1 Performed By: #### L 100.0100, L500.2500 ####[facility] [address] [place], [address] Creatinine [Mass/Vol] 0.60 mg/dL Low 0.70-1.30 [facility] Comment on above: Order Comment: 109.1 Result Comment: The validity of the calculated GFR GFRAA in patients over70 years has not been determined. Clinical correlation isessential. Performed By: #### L 100.0100, L500.2500 ####[facility] [address] [place], [address] EST GFR - AA 172 mL/min Normal >60 [facility] Comment on above: Order Comment: 109.1 Result Comment: Afri can [place] GFR Calc Performed By: #### L 100.0100, L500.2500 ####[facility] [address] [place], [address] GAP 8 Normal 5-15 [facility] Comment on above: Order Comment: 109.1 Performed By: #### L 100.0100, L500.2500 ####[facility] [address] [place], [address] GFR/1.73 sq M.predicted among non-blacks MDRD (S/P/Bld) [Vol rate/Area] 142 mL/min/{1.73_m2} Normal >60 [facility] Comment on above: Order Comment: 109.1 Result Comment: Non- GFR Calc Performed By: #### L 100.0100, L500.2500 ####[facility] [address] [place], [address] Glucose [Mass/Vol] 101 mg/dL Normal 74-106 [facility] Comment on above: Order Comment: 109.1 Result Comment: Fast ing Glucose result from 100 to 125 mg/dLsuggests IMP[employer]IRED HOMEOSTASIS per A.D.A. criteria. Performed By: #### L 100.0100, L500.2500 ####[facility] [address] [place], [address] Potassium [Moles/Vol] 4.1 mmol/L Normal 3.5-5.1 [facility] Comment on above: Order Comment: 109.1 Performed By: #### L 100.0100, L500.2500 ####[facility] [address] [place], [address] Sodium [Moles/Vol] 139 mmol/L Normal 136-145 [facility] Comment on above: Order Comment: 109.1 Performed By: #### L 100.0100, L500.2500 ####[facility] [address] [place], [address] Urea nitrogen [Mass/Vol] 15 mg/dL Normal 7-18 [facility] Comment on above: Order Comment: 109.1 Performed By: #### L 100.0100, L500.2500 ####[facility] [address] [place], [address] Basophil percentageOrdered B y: Renard Burgos on 06-24-2024 Basophils/100 WBC (Bld) 0.5 % 0-1 [facility] Blood urea nitrogen (BUN)/cr eatinine ratioOrdered By: Renard Burgos on 06-24-2024 Urea nitrogen/Creatinine [Mass ratio] 24.9 mg/mg High 10-20 [facility] CBC W/Diff, Automatedon 02-2 Absolute Lymph 1.65 X10 3/uL Normal 0.83-4.51 [facility] Comment on above: Order Comment: 109.1 Performed By: #### L 100.0100, L500.2500 ####[facility] [address] [place], [address] Absolute Neut 10.2 X10 3/uL High 2.0-7.7 [facility] Comment on above: Order Comment: 109.1 Performed By: #### L 100.0100, L500.2500 ####[facility] [address] [place], [address] Basophils/100 WBC (Bld) 0.5 % Normal 0-1 [facility] Comment on above: Order Comment: 109.1 Performed By: #### L 100.0100, L500.2500 ####[facility] [address] [place], [address] Eosinophils/100 WBC (Bld) 0.8 % Normal 0-5 [facility] Comment on above: Order Comment: 109.1 Performed By: #### L 100.0100, L500.2500 ####[facility] [address] [place], [address] Erythrocyte distribution width (RBC) [Ratio] 13.2 % Normal 11.6-14.6 [facility] Comment on above: Order Comment: 109.1 Performed By: #### L 100.0100, L500.2500 ####[facility] [address] [place], [address] Hematocrit (Bld) [Volume fraction] 41.8 % Normal 40-54 [facility] Comment on above: Order Comment: 109.1 Performed By: #### L 100.0100, L500.2500 ####[facility] [address] [place], [address] Hemoglobin (Bld) [Mass/Vol] 13.6 g/dL Normal 13.0-16.5 [facility] Comment on above: Order Comment: 109.1 Performed By: #### L 100.0100, L500.2500 ####[facility] [address] [place], [address] IG% 0.500 Normal 0.0-0.9 [facility] Comment on above: Order Comment: 109.1 Result Comment: IG% - Immature Granulocytes (promyelocytes, myelocytes andmetamyelocytes) > 1% indicates that a LEFT SHIFT is Present. Performed By: #### L 100.0100, L500.2500 ####[facility] [address] [place], [address] Lymphocytes/100 WBC (Bld) 12.8 % Low 19-41 [facility] Comment on above: Order Comment: 109.1 Performed By: #### L 100.0100, L500.2500 ####[facility] [address] [place], [address] MCH (RBC) [Entitic mass] 30.2 pg Normal 27.0-32.0 [facility] Comment on above: Order Comment: 109.1 Performed By: #### L 100.0100, L500.2500 ####[facility] [address] [place], [address] MCHC (RBC) [Mass/Vol] 32.5 g/dL Normal 32-36 [facility] Comment on above: Order Comment: 109.1 Performed By: #### L 100.0100, L500.2500 ####[facility] [address] [place], [address] MCV (RBC) [Entitic vol] 92.7 fL Normal 80-94 [facility] Comment on above: Order Comment: 109.1 Performed By: #### L 100.0100, L500.2500 ####[facility] [address] [place], [address] Monocytes/100 WBC (Bld) 6.4 % Normal 0-10 [facility] Comment on above: Order Comment: 109.1 Performed By: #### L 100.0100, L500.2500 ####[facility] [address] [place], [address] Neutrophils/100 WBC (Bld) 79.0 % High 47-70 [facility] Comment on above: Order Comment: 109.1 Performed By: #### L 100.0100, L500.2500 ####[facility] [address] [place], [address] Nucleated RBC (Bld) [#/Vol] 0 10*3/uL Normal 0-5 [facility] Comment on above: Order Comment: 109.1 Performed By: #### L 100.0100, L500.2500 ####[facility] [address] [place], [address] Platelet mean volume (Bld) [Entitic vol] 11.3 fL Normal 6.2-12.0 [facility] Comment on above: Order Comment: 109.1 Performed By: #### L 100.0100, L500.2500 ####[facility] [address] [place], [address] Platelets (Bld) [#/Vol] 171 10*3/uL Normal 150-450 [facility] Comment on above: Order Comment: 109.1 Performed By: #### L 100.0100, L500.2500 ####[facility] [address] [place], [address] RBC (Bld) [#/Vol] 4.51 10*6/uL Low 4.6-6.2 [facility] Comment on above: Order Comment: 109.1 Performed By: #### L 100.0100, L500.2500 ####[facility] [address] [place], [address] RDW SD 45.1 fl High 35.1-43.9 [facility] Comment on above: Order Comment: 109.1 Performed By: #### L 100.0100, L500.2500 ####[facility] [address] [place], [place], [address] WBC (Bld) [#/Vol] 12.9 10*3/uL High 4.4-11.0 [facility] Comment on above: Order Comment: 109.1 Performed By: #### L 100.0100, L500.2500 ####[facility] [address] [place], [address] CT Chest [facility] 06-24 Radiology Study observation (narrative) Ericka Medina sarah Carbon dioxide measurementOr dered By: Renard Burgos on 06-24-2024 CO2 [Moles/Vol] 24.0 mmol/L 21.0-32.0 [facility] Chloride measurementOrdered By: Renard Burgos on 06-24-2024 Chloride [Moles/Vol] 107 mmol/L 98-107 [facility] Eosinophil percentageOrdered By: Renard Burgos on 06-24-2024 Eosinophils/100 WBC (Bld) 0.8 % 0-5 [facility] Erythrocyte distribution wid th ratioOrdered By: Renard Burgos on 06-24-2024 Erythrocyte distribution width (RBC) [Ratio] 13.2 % 11.6-14.6 [facility] Erythrocyte distribution wid th standard deviationOrdered By: Renard Burgos on 06-24-2024 Erythrocyte distribution width (RBC) [Entitic vol] 45.1 fL High 35.1-43.9 [facility] Erythrocyte distribution width (RBC) [Ratio] 45.1 fl High 35.1-43.9 [facility] Estimated glomerular filtrat ion rate (GFR) AmericanOrdered By: Renard Burgos on 06-24-2024 Estimated GFR (MDRD) Amer 172 mL/min >60 [facility] Comment on above: GFR Calc Glomerular filtration rate ( GFR) estimationOrdered By: Renard Burgos on 06-24-2024 Estimated GFR (MDRD) Non-Af Amer 142 mL/min >60 [facility] Comment on above: Non- GFR Calc GFR/1.73 sq M.predicted among non-blacks MDRD (S/P/Bld) [Vol rate/Area] 142 mL/min/{1.73_m2} >60 [facility] Comment on above: Non- GFR Calc Glucose measurementOrdered B y: Renard Burgos on 06-24-2024 Glucose [Mass/Vol] 101 mg/dL 74-106 [facility] Comment on above: Fasting Glucose resu lt from 100 to 125 mg/dL suggests IMPAIRED HOMEOSTASIS per A.D.A. criteria. Hematocrit Auto (Bld) [Volum e fraction]Ordered By: Renard Burgos on 06-24-2024 Hematocrit (Bld) [Volume fraction] 41.8 % 40-54 [facility] Hemoglobin measurementOrdere d By: Renard Burgos on 06-24-2024 Hemoglobin (Bld) [Mass/Vol] 13.6 g/dL 13.0-16.5 [facility] Immature granulocytes/100 WB C Auto (Bld)Ordered By: Renard Burgos on 06-24-2024 Immature granulocytes/100 WBC (Bld) 0.500 % 0.0-0.9 [facility] Comment on above: IG% - Immature Granu locytes (promyelocytes, myelocytes and metamyelocytes) > 1% indicates that a LEFT SHIFT is Present. Lymphocytes Auto (Unsp spec) [#/Vol]Ordered By: Renard Burgos on 06-24-2024 Lymphocytes (Bld) [#/Vol] 1.65 10*3/uL 0.83-4.51 [facility] Lymphocytes/100 WBC Auto (Un sp spec)Ordered By: Renard Burgos on 06-24-2024 Lymphocytes/100 WBC (Bld) 12.8 % Low 19-41 [facility] MCV (mean corpuscular volume ) determinationOrdered By: Renard Burgos on 06-24-2024 MCV (RBC) [Entitic vol] 92.7 fL 80-94 [facility] Mean corpuscular hemoglobin (MCH) determinationOrdered By: Renard Burgos on 06-24-2024 MCH (RBC) [Entitic mass] 30.2 pg 27.0-32.0 [facility] Mean corpuscular hemoglobin concentration (MCHC) determinationOrdered By: Renard Burgos on 06-24-2024 MCHC (RBC) [Mass/Vol] 32.5 g/dL 32-36 [facility] Mean platelet volume determi nationOrdered By: Renard Burgos on 06-24-2024 Platelet mean volume (Bld) [Entitic vol] 11.3 fL 6.2-12.0 [facility] Monocyte percentageOrdered B y: Renard Burgos on 06-24-2024 Monocytes/100 WBC (Bld) 6.4 % 0-10 [facility] Neutrophil percentageOrdered By: Renard Burgos on 06-24-2024 Neutrophils/100 WBC (Bld) 79.0 % High 47-70 [facility] Nucleated red blood cell per centageOrdered By: Renard Burgos on 06-24-2024 Nucleated RBC/100 WBC (Bld) [Ratio] 0 % 0-5 [facility] Platelet countOrdered By: Garrick Bhatt on 06-24-2024 Platelets (Bld) [#/Vol] 171 10*3/uL 150-450 [facility] Potassium measurementOrdered By: Renard Burgos on 06-24-2024 Potassium [Moles/Vol] 4.1 mmol/L 3.5-5.1 [facility] RBC Auto (Bld) [#/Vol]Ordere d By: Renard Burgos on 06-24-2024 RBC (Bld) [#/Vol] 4.51 10*6/uL Low 4.6-6.2 [facility] Serum anion gap measurementO rdered By: Renard Burgos on 06-24-2024 Anion gap [Moles/Vol] 8 mmol/L 5-15 [facility] Serum or plasma calcium gordy urement (mass/volume)Ordered By: Renard Burgos on 06-24-2024 Calcium [Mass/Vol] 8.3 mg/dL Low 8.5-10.1 [facility] Serum or plasma creatinine m easurement (mass/volume)Ordered By: Renard Burgos on 06-24-2024 Creatinine [Mass/Vol] 0.60 mg/dL Low 0.70-1.30 [facility] Comment on above: The validity of the calculated GFR & GFRAA in patients over 70 years has not been determined. Clinical correlation is essential. Serum or plasma urea nitroge n measurement (mass/volume)Ordered By: Renard Burgos on 06-24-2024 Urea nitrogen [Mass/Vol] 15 mg/dL 7-18 [facility] Sodium levelOrdered By: Lamine Burgos on 06-24-2024 Sodium [Moles/Vol] 139 mmol/L 136-145 [facility] White blood cell (WBC) count Ordered By: Renard Burgos on 06-24-2024 WBC (Bld) [#/Vol] 12.9 10*3/uL High 4.4-11.0 [facility] Absolute lymphocyte countOrd ered By: Renard Loretta on 06-17-2024 Lymphocytes Auto (Unsp spec) [#/Vol] 2.00 10*3/uL 0.83-4.51 [facility] Absolute neutrophil countOrd ered By: Renard Burgos on 06-17-2024 Neutrophils (Bld) [#/Vol] 5.1 10*3/uL 2.0-7.7 [facility] Automated lymphocyte count a s percentage of total leukocytesOrdered By: Renard Burgos on 06-17-2024 Lymphocytes/100 WBC Auto (Unsp spec) 24.5 % 19-41 [facility] Basophil percentageOrdered B y: Renard Burgos on 06-17-2024 Basophils/100 WBC (Bld) 1.1 % High 0-1 [facility] CBC W/Diff, Automatedon 06-01 Absolute Lymph 2.00 X10 3/uL Normal 0.83-4.51 [facility] Comment on above: Order Comment: 109-1 Performed By: #### L 100.0100 ####[facility] [address] [place], [address] Absolute Neut 5.1 X10 3/uL Normal 2.0-7.7 [facility] Comment on above: Order Comment: 109-1 Performed By: #### L 100.0100 ####[facility] [address] [place], [address] Basophils/100 WBC (Bld) 1.1 % High 0-1 [facility] Comment on above: Order Comment: 109-1 Performed By: #### L 100.0100 ####[facility] [address] [place], [address] Eosinophils/100 WBC (Bld) 3.4 % Normal 0-5 [facility] Comment on above: Order Comment: 109-1 Performed By: #### L 100.0100 ####[facility] [address] [place], [address] Erythrocyte distribution width (RBC) [Ratio] 13.3 % Normal 11.6-14.6 [facility] Comment on above: Order Comment: 109-1 Performed By: #### L 100.0100 ####[facility] [address] [place], [address] Hematocrit (Bld) [Volume fraction] 39.3 % Low 40-54 [facility] Comment on above: Order Comment: 109-1 Performed By: #### L 100.0100 ####[facility] [address] [place], [address] Hemoglobin (Bld) [Mass/Vol] 12.8 g/dL Low 13.0-16.5 [facility] Comment on above: Order Comment: 109-1 Performed By: #### L 100.0100 ####[facility] [address] [place], [address] IG% 0.200 Normal 0.0-0.9 [facility] Comment on above: Order Comment: 109-1 Result Comment: IG% - Immature Granulocytes (promyelocytes, myelocytes andmetamyelocytes) > 1% indicates that a LEFT SHIFT is Present. Performed By: #### L 100.0100 ####[facility] [address] [place], [address] Lymphocytes/100 WBC (Bld) 24.5 % Normal 19-41 [facility] Comment on above: Order Comment: 109-1 Performed By: #### L 100.0100 ####[facility] [address] [place], [address] MCH (RBC) [Entitic mass] 29.6 pg Normal 27.0-32.0 [facility] Comment on above: Order Comment: 109-1 Performed By: #### L 100.0100 ####[facility] [address] [place], [address] MCHC (RBC) [Mass/Vol] 32.6 g/dL Normal 32-36 [facility] Comment on above: Order Comment: 109-1 Performed By: #### L 100.0100 ####[facility] [address] [place], [address] MCV (RBC) [Entitic vol] 90.8 fL Normal 80-94 [facility] Comment on above: Order Comment: 109-1 Performed By: #### L 100.0100 ####[facility] [address] [place], [address] Monocytes/100 WBC (Bld) 8.8 % Normal 0-10 [facility] Comment on above: Order Comment: 109-1 Performed By: #### L 100.0100 ####[facility] [address] [place], [address] Neutrophils/100 WBC (Bld) 62.0 % Normal 47-70 [facility] Comment on above: Order Comment: 109-1 Performed By: #### L 100.0100 ####[facility] [address] [place], [address] Nucleated RBC (Bld) [#/Vol] 0 10*3/uL Normal 0-5 [facility] Comment on above: Order Comment: 109-1 Performed By: #### L 100.0100 ####[facility] [address] [place], [address] Platelet mean volume (Bld) [Entitic vol] 10.9 fL Normal 6.2-12.0 [facility] Comment on above: Order Comment: 109-1 Performed By: #### L 100.0100 ####[facility] [address] [place], [address] Platelets (Bld) [#/Vol] 218 10*3/uL Normal 150-450 [facility] Comment on above: Order Comment: 109-1 Performed By: #### L 100.0100 ####[facility] [address] [place], [phone] RBC (Bld) [#/Vol] 4.33 10*6/uL Low 4.6-6.2 [facility] Comment on above: Order Comment: 109-1 Performed By: #### L 100.0100 ####[facility] [address] [place], [place], [phone] RDW SD 44.0 fl High 35.1-43.9 [facility] Comment on above: Order Comment: 109-1 Performed By: #### L 100.0100 ####[facility] [address] [place], [address] WBC (Bld) [#/Vol] 8.2 10*3/uL Normal 4.4-11.0 [facility] Comment on above: Order Comment: 109-1 Performed By: #### L 100.0100 ####[facility] [address] [place], [place], [phone] Eosinophil percentageOrdered By: Renard Burgos on 06-17-2024 Eosinophils/100 WBC (Bld) 3.4 % 0-5 [facility] Erythrocyte distribution wid th ratioOrdered By: Renard Burgos on 06-17-2024 Erythrocyte distribution width (RBC) [Ratio] 13.3 % 11.6-14.6 [facility] Erythrocyte distribution wid th standard deviationOrdered By: Renard Burgos on 06-17-2024 Erythrocyte distribution width (RBC) [Entitic vol] 44.0 fL High 35.1-43.9 [facility] Erythrocyte distribution width (RBC) [Ratio] 44.0 fl High 35.1-43.9 [facility] Hematocrit Auto (Bld) [Volum e fraction]Ordered By: Renard Burgos on 06-17-2024 Hematocrit (Bld) [Volume fraction] 39.3 % Low 40-54 [facility] Hemoglobin measurementOrdere d By: Renard Burgos on 06-17-2024 Hemoglobin (Bld) [Mass/Vol] 12.8 g/dL Low 13.0-16.5 [facility] Immature granulocytes/100 WB C Auto (Bld)Ordered By: Renard Burgos on 06-17-2024 Immature granulocytes/100 WBC (Bld) 0.200 % 0.0-0.9 [facility] Comment on above: IG% - Immature Granu locytes (promyelocytes, myelocytes and metamyelocytes) > 1% indicates that a LEFT SHIFT is Present. Lymphocytes Auto (Unsp spec) [#/Vol]Ordered By: Renard Burgos on 06-17-2024 Lymphocytes (Bld) [#/Vol] 2.00 10*3/uL 0.83-4.51 [facility] Lymphocytes/100 WBC Auto (Un sp spec)Ordered By: Renard Burgos on 06-17-2024 Lymphocytes/100 WBC (Bld) 24.5 % 19-41 [facility] MCV (mean corpuscular volume ) determinationOrdered By: Renard Burgos on 06-17-2024 MCV (RBC) [Entitic vol] 90.8 fL 80-94 [facility] Mean corpuscular hemoglobin (MCH) determinationOrdered By: Renard Burgos on 06-17-2024 MCH (RBC) [Entitic mass] 29.6 pg 27.0-32.0 [facility] Mean corpuscular hemoglobin concentration (MCHC) determinationOrdered By: Renard Burgos on 06-17-2024 MCHC (RBC) [Mass/Vol] 32.6 g/dL 32-36 [facility] Mean platelet volume determi nationOrdered By: Renard Burgos on 06-17-2024 Platelet mean volume (Bld) [Entitic vol] 10.9 fL 6.2-12.0 [facility] Monocyte percentageOrdered B y: Renard Burgos on 06-17-2024 Monocytes/100 WBC (Bld) 8.8 % 0-10 [facility] Neutrophil percentageOrdered By: Renard Burgos on 06-17-2024 Neutrophils/100 WBC (Bld) 62.0 % 47-70 [facility] Nucleated red blood cell per centageOrdered By: Renard Burgos on 06-17-2024 Nucleated RBC/100 WBC (Bld) [Ratio] 0 % 0-5 [facility] Platelet countOrdered By: Garrick Bhatt on 06-17-2024 Platelets (Bld) [#/Vol] 218 10*3/uL 150-450 [facility] RBC Auto (Bld) [#/Vol]Ordere d By: Renard Burgos on 06-17-2024 RBC (Bld) [#/Vol] 4.33 10*6/uL Low 4.6-6.2 [facility] White blood cell (WBC) count Ordered By: Renard Burgos on 06-17-2024 WBC (Bld) [#/Vol] 8.2 10*3/uL 4.4-11.0 [facility] Absolute lymphocyte countOrd ered By: Renard Burgos on 06-10-2024 Lymphocytes Auto (Unsp spec) [#/Vol] 2.38 10*3/uL 0.83-4.51 [facility] Absolute neutrophil countOrd ered By: Renard Burgos on 06-10-2024 Neutrophils (Bld) [#/Vol] 5.3 10*3/uL 2.0-7.7 [facility] Automated lymphocyte count a s percentage of total leukocytesOrdered By: Renard Burgos on 06-10-2024 Lymphocytes/100 WBC Auto (Unsp spec) 27.5 % 19-41 [facility] Basophil percentageOrdered B y: Renard Burgos on 06-10-2024 Basophils/100 WBC (Bld) 0.7 % 0-1 [facility] CBC W/Diff, Automatedon 06-01 Absolute Lymph 2.38 X10 3/uL Normal 0.83-4.51 [facility] Comment on above: Order Comment: 109.1 Performed By: #### L 100.0100 ####[facility] [address] [place], [address] Absolute Neut 5.3 X10 3/uL Normal 2.0-7.7 [facility] Comment on above: Order Comment: 109.1 Performed By: #### L 100.0100 ####[facility] [address] [place], [address] Basophils/100 WBC (Bld) 0.7 % Normal 0-1 [facility] Comment on above: Order Comment: 109.1 Performed By: #### L 100.0100 ####[facility] [address], [address] Eosinophils/100 WBC (Bld) 0.7 % Normal 0-5 [facility] Comment on above: Order Comment: 109.1 Performed By: #### L 100.0100 ####[facility] [address] [place], [address] Erythrocyte distribution width (RBC) [Ratio] 13.1 % Normal 11.6-14.6 [facility] Comment on above: Order Comment: 109.1 Performed By: #### L 100.0100 ####[facility] [address], [address] Hematocrit (Bld) [Volume fraction] 41.1 % Normal 40-54 [facility] Comment on above: Order Comment: 109.1 Performed By: #### L 100.0100 ####[facility] [address] [place], [address] Hemoglobin (Bld) [Mass/Vol] 13.5 g/dL Normal 13.0-16.5 [facility] Comment on above: Order Comment: 109.1 Performed By: #### L 100.0100 ####[facility] [address] [place], [address] IG% 0.500 Normal 0.0-0.9 [facility] Comment on above: Order Comment: 109.1 Result Comment: IG% - Immature Granulocytes (promyelocytes, myelocytes andmetamyelocytes) > 1% indicates that a LEFT SHIFT is Present. Performed By: #### L 100.0100 ####[facility] [address] [place], [address] Lymphocytes/100 WBC (Bld) 27.5 % Normal 19-41 [facility] Comment on above: Order Comment: 109.1 Performed By: #### L 100.0100 ####[facility] [address] [place], [address] MCH (RBC) [Entitic mass] 30.1 pg Normal 27.0-32.0 [facility] Comment on above: Order Comment: 109.1 Performed By: #### L 100.0100 ####[facility] [address] [place], [address] MCHC (RBC) [Mass/Vol] 32.8 g/dL Normal 32-36 [facility] Comment on above: Order Comment: 109.1 Performed By: #### L 100.0100 ####[facility] [address], [address] MCV (RBC) [Entitic vol] 91.7 fL Normal 80-94 [facility] Comment on above: Order Comment: 109.1 Performed By: #### L 100.0100 ####[facility] [address] [place], [address] Monocytes/100 WBC (Bld) 9.6 % Normal 0-10 [facility] Comment on above: Order Comment: 109.1 Performed By: #### L 100.0100 ####[facility] [address] [place], [address] Neutrophils/100 WBC (Bld) 61.0 % Normal 47-70 [facility] Comment on above: Order Comment: 109.1 Performed By: #### L 100.0100 ####[facility] [address] [place], [address] Nucleated RBC (Bld) [#/Vol] 0 10*3/uL Normal 0-5 [facility] Comment on above: Order Comment: 109.1 Performed By: #### L 100.0100 ####[facility] [address] [place], [address] Platelet mean volume (Bld) [Entitic vol] 11.0 fL Normal 6.2-12.0 [facility] Comment on above: Order Comment: 109.1 Performed By: #### L 100.0100 ####[facility] [address] [place], [address] Platelets (Bld) [#/Vol] 261 10*3/uL Normal 150-450 [facility] Comment on above: Order Comment: 109.1 Performed By: #### L 100.0100 ####[facility] [address] [place], [address] RBC (Bld) [#/Vol] 4.48 10*6/uL Low 4.6-6.2 [facility] Comment on above: Order Comment: 109.1 Performed By: #### L 100.0100 ####[facility] [address] [place], [address] RDW SD 43.2 fl Normal 35.1-43.9 [facility] Comment on above: Order Comment: 109.1 Performed By: #### L 100.0100 ####[facility] [address] [place], [address] WBC (Bld) [#/Vol] 8.6 10*3/uL Normal 4.4-11.0 [facility] Comment on above: Order Comment: 109.1 Performed By: #### L 100.0100 ####[facility] [address] [place], [address] Eosinophil percentageOrdered By: Renard Burgos on 06-10-2024 Eosinophils/100 WBC (Bld) 0.7 % 0-5 [facility] Erythrocyte distribution wid th ratioOrdered By: Renard Burgos on 06-10-2024 Erythrocyte distribution width (RBC) [Ratio] 13.1 % 11.6-14.6 [facility] Erythrocyte distribution wid th standard deviationOrdered By: Renard Burgos on 06-10-2024 Erythrocyte distribution width (RBC) [Entitic vol] 43.2 fL 35.1-43.9 [facility] Erythrocyte distribution width (RBC) [Ratio] 43.2 fl 35.1-43.9 [facility] Hematocrit Auto (Bld) [Volum e fraction]Ordered By: Renard Burgos on 06-10-2024 Hematocrit (Bld) [Volume fraction] 41.1 % 40-54 [facility] Hemoglobin measurementOrdere d By: Renard Burgos on 06-10-2024 Hemoglobin (Bld) [Mass/Vol] 13.5 g/dL 13.0-16.5 [facility] Immature granulocytes/100 WB C Auto (Bld)Ordered By: Renard Burgos on 06-10-2024 Immature granulocytes/100 WBC (Bld) 0.500 % 0.0-0.9 [facility] Comment on above: IG% - Immature Granu locytes (promyelocytes, myelocytes and metamyelocytes) > 1% indicates that a LEFT SHIFT is Present. Lymphocytes Auto (Unsp spec) [#/Vol]Ordered By: Renard Burgos on 06-10-2024 Lymphocytes (Bld) [#/Vol] 2.38 10*3/uL 0.83-4.51 [facility] Lymphocytes/100 WBC Auto (Un sp spec)Ordered By: Renard Burgos on 06-10-2024 Lymphocytes/100 WBC (Bld) 27.5 % 19-41 [facility] MCV (mean corpuscular volume ) determinationOrdered By: Renard Burgos on 06-10-2024 MCV (RBC) [Entitic vol] 91.7 fL 80-94 [facility] Mean corpuscular hemoglobin (MCH) determinationOrdered By: Renard Burgos on 06-10-2024 MCH (RBC) [Entitic mass] 30.1 pg 27.0-32.0 [facility] Mean corpuscular hemoglobin concentration (MCHC) determinationOrdered By: Renard Burgos on 06-10-2024 MCHC (RBC) [Mass/Vol] 32.8 g/dL 32-36 [facility] Mean platelet volume determi nationOrdered By: Renard Burgos on 06-10-2024 Platelet mean volume (Bld) [Entitic vol] 11.0 fL 6.2-12.0 [facility] Monocyte percentageOrdered B y: Renard Burgos on 06-10-2024 Monocytes/100 WBC (Bld) 9.6 % 0-10 [facility] Neutrophil percentageOrdered By: Renard Burgos on 06-10-2024 Neutrophils/100 WBC (Bld) 61.0 % 47-70 [facility] Nucleated red blood cell per centageOrdered By: Renard Burgos on 06-10-2024 Nucleated RBC/100 WBC (Bld) [Ratio] 0 % 0-5 [facility] Platelet countOrdered By: Garrick Bhatt on 06-10-2024 Platelets (Bld) [#/Vol] 261 10*3/uL 150-450 [facility] RBC Auto (Bld) [#/Vol]Ordere d By: Renard Burgos on 06-10-2024 RBC (Bld) [#/Vol] 4.48 10*6/uL Low 4.6-6.2 [facility] Urine Cultureon 06-10-2024 [facility] Normal [facility] Comment on above: Performed By: #### M 100.2200, L400.0001 ####[facility] [address] [place], [place], [id number] White blood cell (WBC) count Ordered By: Renard Burgos on 06-10-2024 WBC (Bld) [#/Vol] 8.6 10*3/uL 4.4-11.0 [facility] Bilirubin Test strip Ql (U)O rdered By: Renard Burgos on 06-07-2024 Bilirubin Ql (U) Negative Negative [facility] CBC-Complete Blood Cnt No Di ffon 06-07-2024 Erythrocyte distribution width (RBC) [Ratio] 13.0 % Normal 11.6-14.6 [facility] Comment on above: Order Comment: 109-1 Performed By: #### L 100.0500 ####[facility] [address] [place], [place], [phone] Hematocrit (Bld) [Volume fraction] 39.3 % Low 40-54 [facility] Comment on above: Order Comment: 109-1 Performed By: #### L 100.0500 ####[facility] [address] [place], [address] Hemoglobin (Bld) [Mass/Vol] 13.0 g/dL Normal 13.0-16.5 [facility] Comment on above: Order Comment: 109-1 Performed By: #### L 100.0500 ####[facility] [address] [place], [address] MCH (RBC) [Entitic mass] 30.2 pg Normal 27.0-32.0 [facility] Comment on above: Order Comment: 109-1 Performed By: #### L 100.0500 ####[facility] [address] [place], [address] MCHC (RBC) [Mass/Vol] 33.1 g/dL Normal 32-36 [facility] Comment on above: Order Comment: 109-1 Performed By: #### L 100.0500 ####[facility] [address] [place], [address] MCV (RBC) [Entitic vol] 91.2 fL Normal 80-94 [facility] Comment on above: Order Comment: 109-1 Performed By: #### L 100.0500 ####[facility] [address] [place], [address] Platelet mean volume (Bld) [Entitic vol] 10.8 fL Normal 6.2-12.0 [facility] Comment on above: Order Comment: 109-1 Performed By: #### L 100.0500 ####[facility] [address] [place], [address] Platelets (Bld) [#/Vol] 251 10*3/uL Normal 150-450 [facility] Comment on above: Order Comment: 109-1 Performed By: #### L 100.0500 ####[facility] [address] [place], [address] RBC (Bld) [#/Vol] 4.31 10*6/uL Low 4.6-6.2 [facility] Comment on above: Order Comment: 109-1 Performed By: #### L 100.0500 ####[facility] [address] [place], [address] RDW SD 43.7 fl Normal 35.1-43.9 [facility] Comment on above: Order Comment: 109-1 Performed By: #### L 100.0500 ####[facility] [address] [place], [address] WBC (Bld) [#/Vol] 9.9 10*3/uL Normal 4.4-11.0 [facility] Comment on above: Order Comment: 109-1 Performed By: #### L 100.0500 ####[facility] [address] [place], [address] Epithelial cells.squamous LM Ql (Urine sed)Ordered By: Renard Burgos on 06-07-2024 Epithelial cells.squamous LM.HPF (Urine sed) [#/Area] 0 /[HPF] 0-5 [facility] Erythrocyte distribution wid th ratioOrdered By: Renard Burgos on 06-07-2024 Erythrocyte distribution width (RBC) [Ratio] 13.0 % 11.6-14.6 [facility] Erythrocyte distribution wid th standard deviationOrdered By: Renard Burgos on 06-07-2024 Erythrocyte distribution width (RBC) [Entitic vol] 43.7 fL 35.1-43.9 [facility] Erythrocyte distribution width (RBC) [Ratio] 43.7 fl 35.1-43.9 [facility] Glucose Ql (U)Ordered By: Garrick Bhatt on 06-07-2024 Urine Glucose (UA) Normal mg/dl Normal [facility] Hematocrit Auto (Bld) [Volum e fraction]Ordered By: Renard Burgos on 06-07-2024 Hematocrit (Bld) [Volume fraction] 39.3 % Low 40-54 [facility] Hemoglobin measurementOrdere d By: Renard Burgos on 06-07-2024 Hemoglobin (Bld) [Mass/Vol] 13.0 g/dL 13.0-16.5 [facility] Ketones Test strip Ql (U)Ord ered By: Renard Burgos on 06-07-2024 Ketones Ql (U) Negative Negative [facility] MCV (mean corpuscular volume ) determinationOrdered By: Renard Burgos on 06-07-2024 MCV (RBC) [Entitic vol] 91.2 fL 80-94 [facility] Mean corpuscular hemoglobin (MCH) determinationOrdered By: Renard Burgos on 06-07-2024 MCH (RBC) [Entitic mass] 30.2 pg 27.0-32.0 [facility] Mean corpuscular hemoglobin concentration (MCHC) determinationOrdered By: Renard Burgos on 06-07-2024 MCHC (RBC) [Mass/Vol] 33.1 g/dL 32-36 [facility] Mean platelet volume determi nationOrdered By: Renard Burgos on 06-07-2024 Platelet mean volume (Bld) [Entitic vol] 10.8 fL 6.2-12.0 [facility] Microscopic analysis of urin e for red blood cells (RBC)Ordered By: Renard Burgos on 06-07-2024 Microscopic analysis of urine for red blood cells (RBC) 0 SEEN /hpf 0-5 [facility] Urine RBC 0 SEEN /hpf 0-5 [facility] Mucus LM Ql (Urine sed)Order ed By: Renard Burgos on 06-07-2024 Mucus Ql (Urine sed) 0 SEEN /hpf [facility] Nitrite Test strip Ql (U)Ord ered By: Renard Burgos on 06-07-2024 Nitrite Ql (U) Negative Negative [facility] Platelet countOrdered By: Garrick Bhatt on 06-07-2024 Platelets (Bld) [#/Vol] 251 10*3/uL 150-450 [facility] Protein Test strip Ql (U)Ord ered By: Renard Burgos on 06-07-2024 Protein Ql (U) 15 mg/dl High Negative [facility] RBC Auto (Bld) [#/Vol]Ordere d By: Renard Burgos on 06-07-2024 RBC (Bld) [#/Vol] 4.31 10*6/uL Low 4.6-6.2 [facility] Squamous epithelial cells de tection in urine sediment by light microscopyOrdered By: Renard Burgos on 06-07-2024 Epithelial cells.squamous LM Ql (Urine sed) 0-5 SEEN /hpf 0-5 [facility] Urinalysis, Completeon 06-07 Mucus Ql (Urine sed) 0 SEEN Normal [facility] Comment on above: Order Comment: CLEAN CATCH Performed By: #### M 100.2200, L400.0001 ####[facility] [address] [place], [place], [address] Urine blood detectionOrdered By: Renard Burgos on 06-07-2024 Urine Occult Blood Negative Negative [facility] Urine clarityOrdered By: Lyubov Burgos on 06-07-2024 Clarity (U) Clear Clear [facility] Urine color determinationOrd ered By: Renard Burgos on 06-07-2024 Color (U) Yellow Yellow [facility] Urine cultureOrdered By: Lyubov Burgos on 06-07-2024 Bacteria identified Cx Nom (U) Pseudomonas aeruginosa Abnormal [facility] Bacteria identified Cx Nom (U) Pseudomonas aeruginosa Abnormal [facility] Urine glucose detectionOrder ed By: Renard Burgos on 06-07-2024 Glucose Ql (U) Normal mg/dl Normal [facility] Urine leukocyte esterase det ection by dipstickOrdered By: Renard Burgos on 06-07-2024 Leukocyte esterase Test strip Ql (U) Negative Negative [facility] Urine pHOrdered By: Renard ocampo on 06-07-2024 pH (U) 7.0 [pH] 5.0 - 8.0 [facility] Urine sediment bacteria coun t by microscopy (number/high power field)Ordered By: Renard Burgos on 06-07-2024 Bacteria LM.HPF (Urine sed) [#/Area] 2 /[HPF] None Seen [facility] Urine sediment yeast count b y microscopy (number/high powered field)Ordered By: Renard Burgos on 06-07-2024 Yeast LM.HPF (Urine sed) [#/Area] 1 /[HPF] None Seen [facility] Urine specific gravity measu rementOrdered By: Renard Burgos on 06-07-2024 Specific gravity (U) [Rel density] 1.010 1.002-1.030 [facility] Urine urobilinogen measureme ntOrdered By: Renard Burgos on 06-07-2024 Urobilinogen Ql (U) 1 mg/dl High Normal [facility] Urobilinogen Ql (U)Ordered B y: Renard Burgos on 06-07-2024 Urobilinogen (U) [Mass/Vol] 1 mg/dL High Normal [facility] White blood cell (WBC) count Ordered By: Renard Burgos on 06-07-2024 WBC (Bld) [#/Vol] 9.9 10*3/uL 4.4-11.0 [facility] White blood cell countOrdere d By: Renard Burgos on 06-07-2024 Urine WBC 0-5 SEEN /hpf 0-5 [facility] White blood cell count 0-5 SEEN /hpf 0-5 [facility] Yeast LM.HPF (Urine sed) [#/ Area]Ordered By: Renard Burgos on 06-07-2024 Urine Yeast 1+ /hpf None Seen [facility] Absolute lymphocyte countOrd ered By: Renard Burgos on 06-03-2024 Lymphocytes Auto (Unsp spec) [#/Vol] 1.94 10*3/uL 0.83-4.51 [facility] Absolute neutrophil countOrd ered By: Renard Burgos on 06-03-2024 Neutrophils (Bld) [#/Vol] 9.5 10*3/uL High 2.0-7.7 [facility] Automated lymphocyte count a s percentage of total leukocytesOrdered By: Renard Burgos on 06-03-2024 Lymphocytes/100 WBC Auto (Unsp spec) 15.7 % Low 19-41 [facility] Basophil percentageOrdered B y: Renard Burgos on 06-03-2024 Basophils/100 WBC (Bld) 0.5 % 0-1 [facility] CBC W/Diff, Automatedon Absolute Lymph 1.94 X10 3/uL Normal 0.83-4.51 [facility] Comment on above: Order Comment: 109-1 Performed By: #### L 100.0100 ####[facility] [address] [place], [address] Absolute Neut 9.5 X10 3/uL High 2.0-7.7 [facility] Comment on above: Order Comment: 109-1 Performed By: #### L 100.0100 ####[facility] [address] [place], [address] Basophils/100 WBC (Bld) 0.5 % Normal 0-1 [facility] Comment on above: Order Comment: 109-1 Performed By: #### L 100.0100 ####[facility] [address] [place], [address] Eosinophils/100 WBC (Bld) 0.3 % Normal 0-5 [facility] Comment on above: Order Comment: 109-1 Performed By: #### L 100.0100 ####[facility] [address] [place], [address] Erythrocyte distribution width (RBC) [Ratio] 13.0 % Normal 11.6-14.6 [facility] Comment on above: Order Comment: 109-1 Performed By: #### L 100.0100 ####[facility] [address] [place], [address] Hematocrit (Bld) [Volume fraction] 40.1 % Normal 40-54 [facility] Comment on above: Order Comment: 109-1 Performed By: #### L 100.0100 ####[facility] [address] [place], [address] Hemoglobin (Bld) [Mass/Vol] 13.2 g/dL Normal 13.0-16.5 [facility] Comment on above: Order Comment: 109-1 Performed By: #### L 100.0100 ####[facility] [address] [place], [address] IG% 0.400 Normal 0.0-0.9 [facility] Comment on above: Order Comment: 109-1 Result Comment: IG% - Immature Granulocytes (promyelocytes, myelocytes andmetamyelocytes) > 1% indicates that a LEFT SHIFT is Present. Performed By: #### L 100.0100 ####[facility] [address] [place], [address] Lymphocytes/100 WBC (Bld) 15.7 % Low 19-41 [facility] Comment on above: Order Comment: 109-1 Performed By: #### L 100.0100 ####[facility] [address] [place], [address] MCH (RBC) [Entitic mass] 30.1 pg Normal 27.0-32.0 [facility] Comment on above: Order Comment: 109-1 Performed By: #### L 100.0100 ####[facility] [address] [place], [address] MCHC (RBC) [Mass/Vol] 32.9 g/dL Normal 32-36 [facility] Comment on above: Order Comment: 109-1 Performed By: #### L 100.0100 ####[facility] [address] [place], [address] MCV (RBC) [Entitic vol] 91.3 fL Normal 80-94 [facility] Comment on above: Order Comment: 109-1 Performed By: #### L 100.0100 ####[facility] [address] [place], [address] Monocytes/100 WBC (Bld) 6.6 % Normal 0-10 [facility] Comment on above: Order Comment: 109-1 Performed By: #### L 100.0100 ####[facility] [address] [place], [address] Neutrophils/100 WBC (Bld) 76.5 % High 47-70 [facility] Comment on above: Order Comment: 109-1 Performed By: #### L 100.0100 ####[facility] [address] [place], [address] Nucleated RBC (Bld) [#/Vol] 0 10*3/uL Normal 0-5 [facility] Comment on above: Order Comment: 109-1 Performed By: #### L 100.0100 ####[facility] [address] [place], [address] Platelet mean volume (Bld) [Entitic vol] 11.1 fL Normal 6.2-12.0 [facility] Comment on above: Order Comment: 109-1 Performed By: #### L 100.0100 ####[facility] [address] [place], [address] Platelets (Bld) [#/Vol] 249 10*3/uL Normal 150-450 [facility] Comment on above: Order Comment: 109-1 Performed By: #### L 100.0100 ####[facility] [address] [place], [address] RBC (Bld) [#/Vol] 4.39 10*6/uL Low 4.6-6.2 [facility] Comment on above: Order Comment: 109-1 Performed By: #### L 100.0100 ####[facility] [address] [place], [address] RDW SD 42.8 fl Normal 35.1-43.9 [facility] Comment on above: Order Comment: 109-1 Performed By: #### L 100.0100 ####[facility] [address] [place], [address] WBC (Bld) [#/Vol] 12.4 10*3/uL High 4.4-11.0 [facility] Comment on above: Order Comment: 109-1 Performed By: #### L 100.0100 ####[facility] [address] [place], [address] Eosinophil percentageOrdered By: Renard Burgos on 06-03-2024 Eosinophils/100 WBC (Bld) 0.3 % 0-5 [facility] Erythrocyte distribution wid th ratioOrdered By: Renard Burgos on 06-03-2024 Erythrocyte distribution width (RBC) [Ratio] 13.0 % 11.6-14.6 [facility] Erythrocyte distribution wid th standard deviationOrdered By: Renard Burgos on 06-03-2024 Erythrocyte distribution width (RBC) [Entitic vol] 42.8 fL 35.1-43.9 [facility] Erythrocyte distribution width (RBC) [Ratio] 42.8 fl 35.1-43.9 [facility] Hematocrit Auto (Bld) [Volum e fraction]Ordered By: Renard Burgos on 06-03-2024 Hematocrit (Bld) [Volume fraction] 40.1 % 40-54 [facility] Hemoglobin measurementOrdere d By: Renard Burgos on 06-03-2024 Hemoglobin (Bld) [Mass/Vol] 13.2 g/dL 13.0-16.5 [facility] Immature granulocytes/100 WB C Auto (Bld)Ordered By: Renard Burgos on 06-03-2024 Immature granulocytes/100 WBC (Bld) 0.400 % 0.0-0.9 [facility] Comment on above: IG% - Immature Granu locytes (promyelocytes, myelocytes and metamyelocytes) > 1% indicates that a LEFT SHIFT is Present. Lymphocytes Auto (Unsp spec) [#/Vol]Ordered By: Renard Burgos on 06-03-2024 Lymphocytes (Bld) [#/Vol] 1.94 10*3/uL 0.83-4.51 [facility] Lymphocytes/100 WBC Auto (Un sp spec)Ordered By: Renard Burgos on 06-03-2024 Lymphocytes/100 WBC (Bld) 15.7 % Low 19-41 [facility] MCV (mean corpuscular volume ) determinationOrdered By: Renard Burgos on 06-03-2024 MCV (RBC) [Entitic vol] 91.3 fL 80-94 [facility] Mean corpuscular hemoglobin (MCH) determinationOrdered By: Renard Burgos on 06-03-2024 MCH (RBC) [Entitic mass] 30.1 pg 27.0-32.0 [facility] Mean corpuscular hemoglobin concentration (MCHC) determinationOrdered By: Renard Burgos on 06-03-2024 MCHC (RBC) [Mass/Vol] 32.9 g/dL 32-36 [facility] Mean platelet volume determi nationOrdered By: Renard Burgos on 06-03-2024 Platelet mean volume (Bld) [Entitic vol] 11.1 fL 6.2-12.0 [facility] Monocyte percentageOrdered B y: Renard Burgos on 06-03-2024 Monocytes/100 WBC (Bld) 6.6 % 0-10 [facility] Neutrophil percentageOrdered By: Renard Burgos on 06-03-2024 Neutrophils/100 WBC (Bld) 76.5 % High 47-70 [facility] Nucleated red blood cell per centageOrdered By: Renard Burgos on 06-03-2024 Nucleated RBC/100 WBC (Bld) [Ratio] 0 % 0-5 [facility] Platelet countOrdered By: Garrick Bhatt on 06-03-2024 Platelets (Bld) [#/Vol] 249 10*3/uL 150-450 [facility] RBC Auto (Bld) [#/Vol]Ordere d By: Renard Burgos on 06-03-2024 RBC (Bld) [#/Vol] 4.39 10*6/uL Low 4.6-6.2 [facility] White blood cell (WBC) count Ordered By: Renard Burgos on 06-03-2024 WBC (Bld) [#/Vol] 12.4 10*3/uL High 4.4-11.0 [facility] Absolute lymphocyte countOrd ered By: Renard Burgos on 05-27-2024 Lymphocytes Auto (Unsp spec) [#/Vol] 1.81 10*3/uL 0.83-4.51 [facility] Absolute neutrophil countOrd ered By: Renard Burgos on 05-27-2024 Neutrophils (Bld) [#/Vol] 5.0 10*3/uL 2.0-7.7 [facility] Automated lymphocyte count a s percentage of total leukocytesOrdered By: Renard Burgos on 05-27-2024 Lymphocytes/100 WBC Auto (Unsp spec) 24.4 % 19-41 [facility] Basophil percentageOrdered B y: Renard Burgos on 05-27-2024 Basophils/100 WBC (Bld) 0.5 % 0-1 [facility] CBC W/Diff, Automatedon 05-02 Absolute Lymph 1.81 X10 3/uL Normal 0.83-4.51 [facility] Comment on above: Order Comment: 109.1 Performed By: #### L 100.0100 ####[facility] [address] [place], [address] Absolute Neut 5.0 X10 3/uL Normal 2.0-7.7 [facility] Comment on above: Order Comment: 109.1 Performed By: #### L 100.0100 ####[facility] [address] [place], [address] Basophils/100 WBC (Bld) 0.5 % Normal 0-1 [facility] Comment on above: Order Comment: 109.1 Performed By: #### L 100.0100 ####[facility] [address] [place], [address] Eosinophils/100 WBC (Bld) 0.5 % Normal 0-5 [facility] Comment on above: Order Comment: 109.1 Performed By: #### L 100.0100 ####[facility] [address] [place], [address] Erythrocyte distribution width (RBC) [Ratio] 12.8 % Normal 11.6-14.6 [facility] Comment on above: Order Comment: 109.1 Performed By: #### L 100.0100 ####[facility] [address] [place], [address] Hematocrit (Bld) [Volume fraction] 39.8 % Low 40-54 [facility] Comment on above: Order Comment: 109.1 Performed By: #### L 100.0100 ####[facility] [address] [place], [address] Hemoglobin (Bld) [Mass/Vol] 13.2 g/dL Normal 13.0-16.5 [facility] Comment on above: Order Comment: 109.1 Performed By: #### L 100.0100 ####[facility] [address] [place], [address] IG% 0.400 Normal 0.0-0.9 [facility] Comment on above: Order Comment: 109.1 Result Comment: IG% - Immature Granulocytes (promyelocytes, myelocytes andmetamyelocytes) > 1% indicates that a LEFT SHIFT is Present. Performed By: #### L 100.0100 ####[facility] [address] [place], [address] Lymphocytes/100 WBC (Bld) 24.4 % Normal 19-41 [facility] Comment on above: Order Comment: 109.1 Performed By: #### L 100.0100 ####[facility] [address] [place], [address] MCH (RBC) [Entitic mass] 30.2 pg Normal 27.0-32.0 [facility] Comment on above: Order Comment: 109.1 Performed By: #### L 100.0100 ####[facility] [address] [place], [address] MCHC (RBC) [Mass/Vol] 33.2 g/dL Normal 32-36 [facility] Comment on above: Order Comment: 109.1 Performed By: #### L 100.0100 ####[facility] [address] [place], [address] MCV (RBC) [Entitic vol] 91.1 fL Normal 80-94 [facility] Comment on above: Order Comment: 109.1 Performed By: #### L 100.0100 ####[facility] [address] [place], [address] Monocytes/100 WBC (Bld) 7.0 % Normal 0-10 [facility] Comment on above: Order Comment: 109.1 Performed By: #### L 100.0100 ####[facility] [address] [place], [address] Neutrophils/100 WBC (Bld) 67.2 % Normal 47-70 [facility] Comment on above: Order Comment: 109.1 Performed By: #### L 100.0100 ####[facility] [address] [place], [address] Nucleated RBC (Bld) [#/Vol] 0 10*3/uL Normal 0-5 [facility] Comment on above: Order Comment: 109.1 Performed By: #### L 100.0100 ####[facility] [address] [place], [address] Platelet mean volume (Bld) [Entitic vol] 10.3 fL Normal 6.2-12.0 [facility] Comment on above: Order Comment: 109.1 Performed By: #### L 100.0100 ####[facility] [address] [place], [address] Platelets (Bld) [#/Vol] 239 10*3/uL Normal 150-450 [facility] Comment on above: Order Comment: 109.1 Performed By: #### L 100.0100 ####[facility] [address] [place], [address] RBC (Bld) [#/Vol] 4.37 10*6/uL Low 4.6-6.2 [facility] Comment on above: Order Comment: 109.1 Performed By: #### L 100.0100 ####[facility] [address] [place], [address] RDW SD 42.5 fl Normal 35.1-43.9 [facility] Comment on above: Order Comment: 109.1 Performed By: #### L 100.0100 ####[facility] [address] [place], [address] WBC (Bld) [#/Vol] 7.4 10*3/uL Normal 4.4-11.0 [facility] Comment on above: Order Comment: 109.1 Performed By: #### L 100.0100 ####[facility] [address] [place], [address] Eosinophil percentageOrdered By: Renard Burgos on 05-27-2024 Eosinophils/100 WBC (Bld) 0.5 % 0-5 [facility] Erythrocyte distribution wid th ratioOrdered By: Renard Burgos on 05-27-2024 Erythrocyte distribution width (RBC) [Ratio] 12.8 % 11.6-14.6 [facility] Erythrocyte distribution wid th standard deviationOrdered By: Renard Burgos on 05-27-2024 Erythrocyte distribution width (RBC) [Entitic vol] 42.5 fL 35.1-43.9 [facility] Erythrocyte distribution width (RBC) [Ratio] 42.5 fl 35.1-43.9 [facility] Hematocrit Auto (Bld) [Volum e fraction]Ordered By: Renard Burgos on 05-27-2024 Hematocrit (Bld) [Volume fraction] 39.8 % Low 40-54 [facility] Hemoglobin measurementOrdere d By: Renard Burgos on 05-27-2024 Hemoglobin (Bld) [Mass/Vol] 13.2 g/dL 13.0-16.5 [facility] Immature granulocytes/100 WB C Auto (Bld)Ordered By: Renard Burgos on 05-27-2024 Immature granulocytes/100 WBC (Bld) 0.400 % 0.0-0.9 [facility] Comment on above: IG% - Immature Granu locytes (promyelocytes, myelocytes and metamyelocytes) > 1% indicates that a LEFT SHIFT is Present. Lymphocytes Auto (Unsp spec) [#/Vol]Ordered By: Renard Burgos on 05-27-2024 Lymphocytes (Bld) [#/Vol] 1.81 10*3/uL 0.83-4.51 [facility] Lymphocytes/100 WBC Auto (Un sp spec)Ordered By: Renard Burgos on 05-27-2024 Lymphocytes/100 WBC (Bld) 24.4 % 19-41 [facility] MCV (mean corpuscular volume ) determinationOrdered By: Renard Burgos on 05-27-2024 MCV (RBC) [Entitic vol] 91.1 fL 80-94 [facility] Mean corpuscular hemoglobin (MCH) determinationOrdered By: Renard Burgos on 05-27-2024 MCH (RBC) [Entitic mass] 30.2 pg 27.0-32.0 [facility] Mean corpuscular hemoglobin concentration (MCHC) determinationOrdered By: Renard Burgos on 05-27-2024 MCHC (RBC) [Mass/Vol] 33.2 g/dL 32-36 [facility] Mean platelet volume determi nationOrdered By: Renard Burgos on 05-27-2024 Platelet mean volume (Bld) [Entitic vol] 10.3 fL 6.2-12.0 [facility] Monocyte percentageOrdered B y: Renard Burgos on 05-27-2024 Monocytes/100 WBC (Bld) 7.0 % 0-10 [facility] Neutrophil percentageOrdered By: Renard Burgos on 05-27-2024 Neutrophils/100 WBC (Bld) 67.2 % 47-70 [facility] Nucleated red blood cell per centageOrdered By: Renard Burgos on 05-27-2024 Nucleated RBC/100 WBC (Bld) [Ratio] 0 % 0-5 [facility] Platelet countOrdered By: Garrick Bhatt on 05-27-2024 Platelets (Bld) [#/Vol] 239 10*3/uL 150-450 [facility] RBC Auto (Bld) [#/Vol]Ordere d By: Renard Burgos on 05-27-2024 RBC (Bld) [#/Vol] 4.37 10*6/uL Low 4.6-6.2 [facility] White blood cell (WBC) count Ordered By: Renard Burgos on 05-27-2024 WBC (Bld) [#/Vol] 7.4 10*3/uL 4.4-11.0 [facility] Absolute lymphocyte countOrd ered By: Renard Burgos on 05-20-2024 Lymphocytes Auto (Unsp spec) [#/Vol] 1.73 10*3/uL 0.83-4.51 [facility] Absolute neutrophil countOrd ered By: Renard Burgos on 05-20-2024 Neutrophils (Bld) [#/Vol] 7.0 10*3/uL 2.0-7.7 [facility] Automated blood erythrocyte countOrdered By: Renard Burgos on 05-20-2024 RBC (Bld) [#/Vol] 4.74 10*6/uL Normal 4.6-6.2 [facility] Comment on above: Order Comment: 109-1 Performed By: #### L 100.0100 ####[facility] [address] [place], [place], [address] Automated blood hematocrit ( percentage)Ordered By: Renard Burgos on 05-20-2024 Hematocrit (Bld) [Volume fraction] 43.6 % Normal 40-54 [facility] Comment on above: Order Comment: 109-1 Performed By: #### L 100.0100 ####[facility] [address] [place], [address] Automated lymphocyte count a s percentage of total leukocytesOrdered By: Renard Burgos on 05-20-2024 Lymphocytes/100 WBC (Bld) 17.7 % Low - [facility] Comment on above: Order Comment: 109-1 Performed By: #### L 100.0100 ####[facility] [address] [place], [address] Lymphocytes/100 WBC Auto (Unsp spec) 17.7 % Low -41 [facility] Basophil percentageOrdered B y: Renard Burgos on 05-20-2024 Basophils/100 WBC (Bld) 0.5 % Normal 0-1 [facility] Comment on above: Order Comment: 109-1 Performed By: #### L 100.0100 ####[facility] [address] [place], [address] CBC W/Diff, Automatedon 05-02 Absolute Lymph 1.73 X10 3/uL Normal 0.83-4.51 [facility] Comment on above: Order Comment: 109-1 Performed By: #### L 100.0100 ####[facility] [address] [place], [address] Absolute Neut 7.0 X10 3/uL Normal 2.0-7.7 [facility] Comment on above: Order Comment: 109-1 Performed By: #### L 100.0100 ####[facility] [address] [place], [address] IG% 0.500 Normal 0.0-0.9 [facility] Comment on above: Order Comment: 109-1 Result Comment: IG% - Immature Granulocytes (promyelocytes, myelocytes andmetamyelocytes) > 1% indicates that a LEFT SHIFT is Present. Performed By: #### L 100.0100 ####[facility] [address] [place], [address] Nucleated RBC (Bld) [#/Vol] 0 10*3/uL Normal 0-5 [facility] Comment on above: Order Comment: 109-1 Performed By: #### L 100.0100 ####[facility] [address] [place], [address] RDW SD 42.5 fl Normal 35.1-43.9 [facility] Comment on above: Order Comment: 109-1 Performed By: #### L 100.0100 ####[facility] [address] [place], [address] Eosinophil percentageOrdered By: Renard Burgos on 05-20-2024 Eosinophils/100 WBC (Bld) 0.5 % Normal 0-5 [facility] Comment on above: Order Comment: 109-1 Performed By: #### L 100.0100 ####[facility] [address] [place], [address](381) Erythrocyte distribution wid th ratioOrdered By: Renard Burgos on 05-20-2024 Erythrocyte distribution width (RBC) [Ratio] 12.6 % Normal 11.6-14.6 [facility] Comment on above: Order Comment: 109-1 Performed By: #### L 100.0100 ####[facility] [address] [place], [address](152) Erythrocyte distribution wid th standard deviationOrdered By: Renard Burgos on 05-20-2024 Erythrocyte distribution width (RBC) [Entitic vol] 42.5 fL 35.1-43.9 [facility] Erythrocyte distribution width (RBC) [Ratio] 42.5 fl 35.1-43.9 [facility] Hemoglobin measurementOrdere d By: Renard Burgos on 05-20-2024 Hemoglobin (Bld) [Mass/Vol] 14.4 g/dL Normal 13.0-16.5 [facility] Comment on above: Order Comment: 109-1 Performed By: #### L 100.0100 ####[facility] [address] [place], [address](861) Immature granulocytes/100 WB C Auto (Bld)Ordered By: Renard Burgos on 05-20-2024 Immature granulocytes/100 WBC (Bld) 0.500 % 0.0-0.9 [facility] Comment on above: IG% - Immature Granu locytes (promyelocytes, myelocytes and metamyelocytes) > 1% indicates that a LEFT SHIFT is Present. Lymphocytes Auto (Unsp spec) [#/Vol]Ordered By: Renard Burgos on 05-20-2024 Lymphocytes (Bld) [#/Vol] 1.73 10*3/uL 0.83-4.51 [facility] MCV (mean corpuscular volume ) determinationOrdered By: Renard Burgos on 05-20-2024 MCV (RBC) [Entitic vol] 92.0 fL Normal 80-94 [facility] Comment on above: Order Comment: 109-1 Performed By: #### L 100.0100 ####[facility] [address] [place], [place], [phone] Mean corpuscular hemoglobin (MCH) determinationOrdered By: Renard Burgos on 05-20-2024 MCH (RBC) [Entitic mass] 30.4 pg Normal 27.0-32.0 [facility] Comment on above: Order Comment: 109-1 Performed By: #### L 100.0100 ####[facility] [address] [place], [place], [id number] Mean corpuscular hemoglobin concentration (MCHC) determinationOrdered By: Renard Burgos on 05-20-2024 MCHC (RBC) [Mass/Vol] 33.0 g/dL Normal 32-36 [facility] Comment on above: Order Comment: 109-1 Performed By: #### L 100.0100 ####[facility] [address] [place], [address] Mean platelet volume determi nationOrdered By: Renard Burgos on 05-20-2024 Platelet mean volume (Bld) [Entitic vol] 10.7 fL Normal 6.2-12.0 [facility] Comment on above: Order Comment: 109-1 Performed By: #### L 100.0100 ####[facility] [address] [place], [address] Monocyte percentageOrdered B y: Renard Burgos on 05-20-2024 Monocytes/100 WBC (Bld) 9.4 % Normal 0-10 [facility] Comment on above: Order Comment: 109-1 Performed By: #### L 100.0100 ####[facility] [address] [place], [address] Neutrophil percentageOrdered By: Renard Burgos on 05-20-2024 Neutrophils/100 WBC (Bld) 71.4 % High 47-70 [facility] Comment on above: Order Comment: 109-1 Performed By: #### L 100.0100 ####[facility] [address] [place], [address] Nucleated red blood cell per centageOrdered By: Renard Burgos on 05-20-2024 Nucleated RBC/100 WBC (Bld) [Ratio] 0 % 0-5 [facility] Platelet countOrdered By: Garrick Bhatt on 05-20-2024 Platelets (Bld) [#/Vol] 239 10*3/uL Normal 150-450 [facility] Comment on above: Order Comment: 109-1 Performed By: #### L 100.0100 ####[facility] [address] [place], [address] White blood cell (WBC) count Ordered By: Renard Burgos on 05-20-2024 WBC (Bld) [#/Vol] 9.8 10*3/uL Normal 4.4-11.0 [facility] Comment on above: Order Comment: 109-1 Performed By: #### L 100.0100 ####[facility] [address] [place], [address] Absolute lymphocyte countOrd ered By: Renard Burgos on 05-13-2024 Lymphocytes Auto (Unsp spec) [#/Vol] 2.10 10*3/uL 0.83-4.51 [facility] Absolute neutrophil countOrd ered By: Renard Burgos on 05-13-2024 Neutrophils (Bld) [#/Vol] 6.2 10*3/uL 2.0-7.7 [facility] Automated lymphocyte count a s percentage of total leukocytesOrdered By: Renard Burgos on 05-13-2024 Lymphocytes/100 WBC Auto (Unsp spec) 22.8 % 19-41 [facility] Basophil percentageOrdered B y: Renard Burgos on 05-13-2024 Basophils/100 WBC (Bld) 0.5 % 0-1 [facility] CBC W/Diff, Automatedon 05-01 Absolute Lymph 2.10 X10 3/uL Normal 0.83-4.51 [facility] Comment on above: Order Comment: 109 Performed By: #### L 100.0100 ####[facility] [address] [place], [address] Absolute Neut 6.2 X10 3/uL Normal 2.0-7.7 [facility] Comment on above: Order Comment: 109 Performed By: #### L 100.0100 ####[facility] [address] [place], [address] Basophils/100 WBC (Bld) 0.5 % Normal 0-1 [facility] Comment on above: Order Comment: 109 Performed By: #### L 100.0100 ####[facility] [address] [place], [address] Eosinophils/100 WBC (Bld) 0.5 % Normal 0-5 [facility] Comment on above: Order Comment: 109 Performed By: #### L 100.0100 ####[facility] [address] [place], [address] Erythrocyte distribution width (RBC) [Ratio] 12.9 % Normal 11.6-14.6 [facility] Comment on above: Order Comment: 109 Performed By: #### L 100.0100 ####[facility] [address] [place], [address] Hematocrit (Bld) [Volume fraction] 42.5 % Normal 40-54 [facility] Comment on above: Order Comment: 109 Performed By: #### L 100.0100 ####[facility] [address] [place], [address] Hemoglobin (Bld) [Mass/Vol] 14.2 g/dL Normal 13.0-16.5 [facility] Comment on above: Order Comment: 109 Performed By: #### L 100.0100 ####[facility] [address] [place], [address] IG% 0.300 Normal 0.0-0.9 [facility] Comment on above: Order Comment: 109 Result Comment: IG% - Immature Granulocytes (promyelocytes, myelocytes andmetamyelocytes) > 1% indicates that a LEFT SHIFT is Present. Performed By: #### L 100.0100 ####[facility] [address] [place], [address] Lymphocytes/100 WBC (Bld) 22.8 % Normal 19-41 [facility] Comment on above: Order Comment: 109 Performed By: #### L 100.0100 ####[facility] [address] [place], [address] MCH (RBC) [Entitic mass] 30.3 pg Normal 27.0-32.0 [facility] Comment on above: Order Comment: 109 Performed By: #### L 100.0100 ####[facility] [address] [place], [address] MCHC (RBC) [Mass/Vol] 33.4 g/dL Normal 32-36 [facility] Comment on above: Order Comment: 109 Performed By: #### L 100.0100 ####[facility] [address] [place], [address] MCV (RBC) [Entitic vol] 90.6 fL Normal 80-94 [facility] Comment on above: Order Comment: 109 Performed By: #### L 100.0100 ####[facility] [address] [place], [address] Monocytes/100 WBC (Bld) 8.7 % Normal 0-10 [facility] Comment on above: Order Comment: 109 Performed By: #### L 100.0100 ####[facility] [address] [place], [address] Neutrophils/100 WBC (Bld) 67.2 % Normal 47-70 [facility] Comment on above: Order Comment: 109 Performed By: #### L 100.0100 ####[facility] [address] [place], [address] Nucleated RBC (Bld) [#/Vol] 0 10*3/uL Normal 0-5 [facility] Comment on above: Order Comment: 109 Performed By: #### L 100.0100 ####[facility] [address] [place], [address] Platelet mean volume (Bld) [Entitic vol] 11.1 fL Normal 6.2-12.0 [facility] Comment on above: Order Comment: 109 Performed By: #### L 100.0100 ####[facility] [address] [place], [address] Platelets (Bld) [#/Vol] 218 10*3/uL Normal 150-450 [facility] Comment on above: Order Comment: 109 Performed By: #### L 100.0100 ####[facility] [address] [place], [address] RBC (Bld) [#/Vol] 4.69 10*6/uL Normal 4.6-6.2 [facility] Comment on above: Order Comment: 109 Performed By: #### L 100.0100 ####[facility] [address] [place], [address] RDW SD 42.3 fl Normal 35.1-43.9 [facility] Comment on above: Order Comment: 109 Performed By: #### L 100.0100 ####[facility] [address] [place], [address] WBC (Bld) [#/Vol] 9.2 10*3/uL Normal 4.4-11.0 [facility] Comment on above: Order Comment: 109 Performed By: #### L 100.0100 ####[facility] [address] [place], [address] Eosinophil percentageOrdered By: Renard Burgos on 05-13-2024 Eosinophils/100 WBC (Bld) 0.5 % 0-5 [facility] Erythrocyte distribution wid th ratioOrdered By: Renard Burgos on 05-13-2024 Erythrocyte distribution width (RBC) [Ratio] 12.9 % 11.6-14.6 [facility] Erythrocyte distribution wid th standard deviationOrdered By: Renard Burgos on 05-13-2024 Erythrocyte distribution width (RBC) [Entitic vol] 42.3 fL 35.1-43.9 [facility] Erythrocyte distribution width (RBC) [Ratio] 42.3 fl 35.1-43.9 [facility] Hematocrit Auto (Bld) [Volum e fraction]Ordered By: Renard Burgos on 05-13-2024 Hematocrit (Bld) [Volume fraction] 42.5 % 40-54 [facility] Hemoglobin measurementOrdere d By: Renard Burgos on 05-13-2024 Hemoglobin (Bld) [Mass/Vol] 14.2 g/dL 13.0-16.5 [facility] Immature granulocytes/100 WB C Auto (Bld)Ordered By: Renard Burgos on 05-13-2024 Immature granulocytes/100 WBC (Bld) 0.300 % 0.0-0.9 [facility] Comment on above: IG% - Immature Granu locytes (promyelocytes, myelocytes and metamyelocytes) > 1% indicates that a LEFT SHIFT is Present. Lymphocytes Auto (Unsp spec) [#/Vol]Ordered By: Renard Burgos on 05-13-2024 Lymphocytes (Bld) [#/Vol] 2.10 10*3/uL 0.83-4.51 [facility] Lymphocytes/100 WBC Auto (Un sp spec)Ordered By: Renard Burgos on 05-13-2024 Lymphocytes/100 WBC (Bld) 22.8 % 19-41 [facility] MCV (mean corpuscular volume ) determinationOrdered By: Renard Burgos on 05-13-2024 MCV (RBC) [Entitic vol] 90.6 fL 80-94 [facility] Mean corpuscular hemoglobin (MCH) determinationOrdered By: Renard Burgos on 05-13-2024 MCH (RBC) [Entitic mass] 30.3 pg 27.0-32.0 [facility] Mean corpuscular hemoglobin concentration (MCHC) determinationOrdered By: Reanrd Burgos on 05-13-2024 MCHC (RBC) [Mass/Vol] 33.4 g/dL 32-36 [facility] Mean platelet volume determi nationOrdered By: Renard Burgos on 05-13-2024 Platelet mean volume (Bld) [Entitic vol] 11.1 fL 6.2-12.0 [facility] Monocyte percentageOrdered B y: Renard Burgos on 05-13-2024 Monocytes/100 WBC (Bld) 8.7 % 0-10 [facility] Neutrophil percentageOrdered By: Renard Burgos on 05-13-2024 Neutrophils/100 WBC (Bld) 67.2 % 47-70 [facility] Nucleated red blood cell per centageOrdered By: Renard Burgos on 05-13-2024 Nucleated RBC/100 WBC (Bld) [Ratio] 0 % 0-5 [facility] Platelet countOrdered By: Garrick Bhatt on 05-13-2024 Platelets (Bld) [#/Vol] 218 10*3/uL 150-450 [facility] RBC Auto (Bld) [#/Vol]Ordere d By: Renard Burgos on 05-13-2024 RBC (Bld) [#/Vol] 4.69 10*6/uL 4.6-6.2 [facility] White blood cell (WBC) count Ordered By: Renard Burgos on 05-13-2024 WBC (Bld) [#/Vol] 9.2 10*3/uL 4.4-11.0 [facility] Absolute neutrophil countOrd ered By: Renard Burgos on 05-06-2024 Neutrophils (Bld) [#/Vol] 5.9 10*3/uL 2.0-7.7 [facility] Automated blood erythrocyte countOrdered By: Renard Burgos on 05-06-2024 RBC (Bld) [#/Vol] 4.85 10*6/uL Normal 4.6-6.2 [facility] Comment on above: Order Comment: 109-1 Performed By: #### L 100.0100 ####[facility] [address] [place], [address] Automated blood hematocrit ( percentage)Ordered By: Renard Burgos on 05-06-2024 Hematocrit (Bld) [Volume fraction] 45.0 % Normal 40-54 [facility] Comment on above: Order Comment: 109-1 Performed By: #### L 100.0100 ####[facility] [address] [place], [address] Automated lymphocyte count a s percentage of total leukocytesOrdered By: Renard Burgos on 05-06-2024 Lymphocytes/100 WBC (Bld) 24.4 % Normal 19-41 [facility] Comment on above: Order Comment: 109-1 Performed By: #### L 100.0100 ####[facility] [address] [place], [address] Basophil percentageOrdered B y: Renard Burgos on 05-06-2024 Basophils/100 WBC (Bld) 0.5 % Normal 0-1 [facility] Comment on above: Order Comment: 109-1 Performed By: #### L 100.0100 ####[facility] [address] [place], [address] CBC W/Diff, Automatedon Absolute Lymph 2.22 X10 3/uL Normal 0.83-4.51 [facility] Comment on above: Order Comment: 109-1 Performed By: #### L 100.0100 ####[facility] [address] [place], [address] Absolute Neut 5.9 X10 3/uL Normal 2.0-7.7 [facility] Comment on above: Order Comment: 109-1 Performed By: #### L 100.0100 ####[facility] [address] [place], [address] IG% 0.500 Normal 0.0-0.9 [facility] Comment on above: Order Comment: 109-1 Result Comment: IG% - Immature Granulocytes (promyelocytes, myelocytes andmetamyelocytes) > 1% indicates that a LEFT SHIFT is Present. Performed By: #### L 100.0100 ####[facility] [address] [place], [address] Nucleated RBC (Bld) [#/Vol] 0 10*3/uL Normal 0-5 [facility] Comment on above: Order Comment: 109-1 Performed By: #### L 100.0100 ####[facility] [address] [place], [address] RDW SD 43.9 fl Normal 35.1-43.9 [facility] Comment on above: Order Comment: 109-1 Performed By: #### L 100.0100 ####[facility] [address] [place], [address] Eosinophil percentageOrdered By: Renard Burgos on 05-06-2024 Eosinophils/100 WBC (Bld) 0.4 % Normal 0-5 [facility] Comment on above: Order Comment: 109-1 Performed By: #### L 100.0100 ####[facility] [address] [place], [address] Erythrocyte distribution wid th ratioOrdered By: Renard Burgos on 05-06-2024 Erythrocyte distribution width (RBC) [Ratio] 13.0 % Normal 11.6-14.6 [facility] Comment on above: Order Comment: 109-1 Performed By: #### L 100.0100 ####[facility] [address] [place], [address] Erythrocyte distribution wid th standard deviationOrdered By: Renard Burgos on 05-06-2024 Erythrocyte distribution width (RBC) [Entitic vol] 43.9 fL 35.1-43.9 [facility] Hemoglobin measurementOrdere d By: Renard Burgos on 05-06-2024 Hemoglobin (Bld) [Mass/Vol] 14.5 g/dL Normal 13.0-16.5 [facility] Comment on above: Order Comment: 109-1 Performed By: #### L 100.0100 ####[facility] [address] [place], [place], [id number](073) Immature granulocytes/100 WB C Auto (Bld)Ordered By: Renard Burgos on 05-06-2024 Immature granulocytes/100 WBC (Bld) 0.500 % 0.0-0.9 [facility] Comment on above: IG% - Immature Granu locytes (promyelocytes, myelocytes and metamyelocytes) > 1% indicates that a LEFT SHIFT is Present. Lymphocytes Auto (Unsp spec) [#/Vol]Ordered By: Renard Burgos on 05-06-2024 Lymphocytes (Bld) [#/Vol] 2.22 10*3/uL 0.83-4.51 [facility] MCV (mean corpuscular volume ) determinationOrdered By: Renard Burgos on 05-06-2024 MCV (RBC) [Entitic vol] 92.8 fL Normal 80-94 [facility] Comment on above: Order Comment: 109- Performed By: #### L 100.0100 ####[facility] [address] [place], [place], [phone] Mean corpuscular hemoglobin (MCH) determinationOrdered By: Renard Burgos on 05-06-2024 MCH (RBC) [Entitic mass] 29.9 pg Normal 27.0-32.0 [facility] Comment on above: Order Comment: 109-1 Performed By: #### L 100.0100 ####[facility] [address] [place], [place], [phone]([phone] Mean corpuscular hemoglobin concentration (MCHC) determinationOrdered By: Renard Burgos on 05-06-2024 MCHC (RBC) [Mass/Vol] 32.2 g/dL Normal 32-36 [facility] Comment on above: Order Comment: 109-1 Performed By: #### L 100.0100 ####[facility] [address] [place], [address] Mean platelet volume determi nationOrdered By: Renard Burgos on 05-06-2024 Platelet mean volume (Bld) [Entitic vol] 11.4 fL Normal 6.2-12.0 [facility] Comment on above: Order Comment: 109-1 Performed By: #### L 100.0100 ####[facility] [address] [place], [address] Monocyte percentageOrdered B y: Renard Burgos on 05-06-2024 Monocytes/100 WBC (Bld) 9.7 % Normal 0-10 [facility] Comment on above: Order Comment: 109-1 Performed By: #### L 100.0100 ####[facility] [address] [place], [address] Neutrophil percentageOrdered By: Renard Burgos on 05-06-2024 Neutrophils/100 WBC (Bld) 64.5 % Normal 47-70 [facility] Comment on above: Order Comment: 109-1 Performed By: #### L 100.0100 ####[facility] [address] [place], [address] Nucleated red blood cell per centageOrdered By: Renard Burgos on 05-06-2024 Nucleated RBC/100 WBC (Bld) [Ratio] 0 % 0-5 [facility] Platelet countOrdered By: Garrick Bhatt on 05-06-2024 Platelets (Bld) [#/Vol] 201 10*3/uL Normal 150-450 [facility] Comment on above: Order Comment: 109-1 Performed By: #### L 100.0100 ####[facility] [address] [place], [address] White blood cell (WBC) count Ordered By: Renard Burgos on 05-06-2024 WBC (Bld) [#/Vol] 9.1 10*3/uL Normal 4.4-11.0 [facility] Comment on above: Order Comment: 109-1 Performed By: #### L 100.0100 ####[facility] [address] [place], [address] 36on 05-03-2024 36 Gissel is calling to let Dr. Burgos know that the medication he prescribed he not certified, she is going to fax the information to the office. [phone] Normal [facility] Absolute neutrophil countOrd ered By: Renard Burgos on 04-29-2024 Neutrophils (Bld) [#/Vol] 6.3 10*3/uL 2.0-7.7 [facility] Basophil percentageOrdered B y: Renard Burgos on 04-29-2024 Basophils/100 WBC (Bld) 0.4 % 0-1 [facility] CBC W/Diff, Automatedon --2023 Absolute Lymph 2.11 X10 3/uL Normal 0.83-4.51 [facility] Comment on above: Order Comment: 109.1 Performed By: #### L 100.0100 ####[facility] [address] [place], [address] Absolute Neut 6.3 X10 3/uL Normal 2.0-7.7 [facility] Comment on above: Order Comment: 109.1 Performed By: #### L 100.0100 ####[facility] [address] [place], [address] Basophils/100 WBC (Bld) 0.4 % Normal 0-1 [facility] Comment on above: Order Comment: 109.1 Performed By: #### L 100.0100 ####[facility] [address] [place], [address] Eosinophils/100 WBC (Bld) 0.4 % Normal 0-5 [facility] Comment on above: Order Comment: 109.1 Performed By: #### L 100.0100 ####[facility] [address] [place], [address] Erythrocyte distribution width (RBC) [Ratio] 12.6 % Normal 11.6-14.6 [facility] Comment on above: Order Comment: 109.1 Performed By: #### L 100.0100 ####[facility] [address] [place], [address] Hematocrit (Bld) [Volume fraction] 41.6 % Normal 40-54 [facility] Comment on above: Order Comment: 109.1 Performed By: #### L 100.0100 ####[facility] [address] [place], [address] Hemoglobin (Bld) [Mass/Vol] 13.7 g/dL Normal 13.0-16.5 [facility] Comment on above: Order Comment: 109.1 Performed By: #### L 100.0100 ####[facility] [address] [place], [address] IG% 0.400 Normal 0.0-0.9 [facility] Comment on above: Order Comment: 109.1 Result Comment: IG% - Immature Granulocytes (promyelocytes, myelocytes andmetamyelocytes) > 1% indicates that a LEFT SHIFT is Present. Performed By: #### L 100.0100 ####[facility] [address] [place], [address] Lymphocytes/100 WBC (Bld) 22.6 % Normal 19-41 [facility] Comment on above: Order Comment: 109.1 Performed By: #### L 100.0100 ####[facility] [address] [place], [address] MCH (RBC) [Entitic mass] 30.1 pg Normal 27.0-32.0 [facility] Comment on above: Order Comment: 109.1 Performed By: #### L 100.0100 ####[facility] [address] [place], [address] MCHC (RBC) [Mass/Vol] 32.9 g/dL Normal 32-36 [facility] Comment on above: Order Comment: 109.1 Performed By: #### L 100.0100 ####[facility] [address] [place], [address] MCV (RBC) [Entitic vol] 91.4 fL Normal 80-94 [facility] Comment on above: Order Comment: 109.1 Performed By: #### L 100.0100 ####[facility] [address] [place], [address] Monocytes/100 WBC (Bld) 9.3 % Normal 0-10 [facility] Comment on above: Order Comment: 109.1 Performed By: #### L 100.0100 ####[facility] [address] [place], [address] Neutrophils/100 WBC (Bld) 66.9 % Normal 47-70 [facility] Comment on above: Order Comment: 109.1 Performed By: #### L 100.0100 ####[facility] [address] [place], [address] Nucleated RBC (Bld) [#/Vol] 0 10*3/uL Normal 0-5 [facility] Comment on above: Order Comment: 109.1 Performed By: #### L 100.0100 ####[facility] [address] [place], [address] Platelet mean volume (Bld) [Entitic vol] 11.0 fL Normal 6.2-12.0 [facility] Comment on above: Order Comment: 109.1 Performed By: #### L 100.0100 ####[facility] [address] [place], [address] Platelets (Bld) [#/Vol] 211 10*3/uL Normal 150-450 [facility] Comment on above: Order Comment: 109.1 Performed By: #### L 100.0100 ####[facility] [address] [place], [address] RBC (Bld) [#/Vol] 4.55 10*6/uL Low 4.6-6.2 [facility] Comment on above: Order Comment: 109.1 Performed By: #### L 100.0100 ####[facility] [address] [place], [address] RDW SD 41.5 fl Normal 35.1-43.9 [facility] Comment on above: Order Comment: 109.1 Performed By: #### L 100.0100 ####[facility] [address] [place], [address] WBC (Bld) [#/Vol] 9.4 10*3/uL Normal 4.4-11.0 [facility] Comment on above: Order Comment: 109.1 Performed By: #### L 100.0100 ####[facility] [address] [place], [address] Eosinophil percentageOrdered By: Renard Burgos on 04-29-2024 Eosinophils/100 WBC (Bld) 0.4 % 0-5 [facility] Erythrocyte distribution wid th ratioOrdered By: Renard Burgos on 04-29-2024 Erythrocyte distribution width (RBC) [Ratio] 12.6 % 11.6-14.6 [facility] Erythrocyte distribution wid th standard deviationOrdered By: Renard Burgos on 04-29-2024 Erythrocyte distribution width (RBC) [Entitic vol] 41.5 fL 35.1-43.9 [facility] Hematocrit Auto (Bld) [Volum e fraction]Ordered By: Renard Burgos on 04-29-2024 Hematocrit (Bld) [Volume fraction] 41.6 % 40-54 [facility] Hemoglobin measurementOrdere d By: Renard Burgos on 04-29-2024 Hemoglobin (Bld) [Mass/Vol] 13.7 g/dL 13.0-16.5 [facility] Immature granulocytes/100 WB C Auto (Bld)Ordered By: Renard Burgos on 04-29-2024 Immature granulocytes/100 WBC (Bld) 0.400 % 0.0-0.9 [facility] Comment on above: IG% - Immature Granu locytes (promyelocytes, myelocytes and metamyelocytes) > 1% indicates that a LEFT SHIFT is Present. Lymphocytes Auto (Unsp spec) [#/Vol]Ordered By: Renard Burgos on 04-29-2024 Lymphocytes (Bld) [#/Vol] 2.11 10*3/uL 0.83-4.51 [facility] Lymphocytes/100 WBC Auto (Un sp spec)Ordered By: Renard Burgos on 04-29-2024 Lymphocytes/100 WBC (Bld) 22.6 % 19-41 [facility] MCV (mean corpuscular volume ) determinationOrdered By: Renard Burgos on 04-29-2024 MCV (RBC) [Entitic vol] 91.4 fL 80-94 [facility] Mean corpuscular hemoglobin (MCH) determinationOrdered By: Renard Burgos on 04-29-2024 MCH (RBC) [Entitic mass] 30.1 pg 27.0-32.0 [facility] Mean corpuscular hemoglobin concentration (MCHC) determinationOrdered By: Renard Burgos on 04-29-2024 MCHC (RBC) [Mass/Vol] 32.9 g/dL 32-36 [facility] Mean platelet volume determi nationOrdered By: Renard Burgos on 04-29-2024 Platelet mean volume (Bld) [Entitic vol] 11.0 fL 6.2-12.0 [facility] Monocyte percentageOrdered B y: Renard Burgos on 04-29-2024 Monocytes/100 WBC (Bld) 9.3 % 0-10 [facility] Neutrophil percentageOrdered By: Renard Burgos on 04-29-2024 Neutrophils/100 WBC (Bld) 66.9 % 47-70 [facility] Nucleated red blood cell per centageOrdered By: Renard Burgos on 04-29-2024 Nucleated RBC/100 WBC (Bld) [Ratio] 0 % 0-5 [facility] Platelet countOrdered By: Garrick tess Loretta on 04-29-2024 Platelets (Bld) [#/Vol] 211 10*3/uL 150-450 [facility] RBC Auto (Bld) [#/Vol]Ordere d By: Renard Burgos on 04-29-2024 RBC (Bld) [#/Vol] 4.55 10*6/uL Low 4.6-6.2 [facility] White blood cell (WBC) count Ordered By: Renard Burgos on 04-29-2024 WBC (Bld) [#/Vol] 9.4 10*3/uL 4.4-11.0 [facility] Absolute neutrophil countOrd ered By: Renard Burgos on 04-22-2024 Neutrophils (Bld) [#/Vol] 8.1 10*3/uL High 2.0-7.7 [facility] Basophil percentageOrdered B y: Renard Burgos on 04-22-2024 Basophils/100 WBC (Bld) 0.5 % 0-1 [facility] CBC W/Diff, Automatedon 04-01 Absolute Lymph 2.61 X10 3/uL Normal 0.83-4.51 [facility] Comment on above: Order Comment: 109-1 Performed By: #### L 100.0100 ####[facility] [address] [place], [place], [phone] Absolute Neut 8.1 X10 3/uL High 2.0-7.7 [facility] Comment on above: Order Comment: 109-1 Performed By: #### L 100.0100 ####[facility] [address] [place], [address] Basophils/100 WBC (Bld) 0.5 % Normal 0-1 [facility] Comment on above: Order Comment: 109-1 Performed By: #### L 100.0100 ####[facility] [address] [place], [address] Eosinophils/100 WBC (Bld) 0.4 % Normal 0-5 [facility] Comment on above: Order Comment: 109-1 Performed By: #### L 100.0100 ####[facility] [address] [place], [address] Erythrocyte distribution width (RBC) [Ratio] 12.6 % Normal 11.6-14.6 [facility] Comment on above: Order Comment: 109-1 Performed By: #### L 100.0100 ####[facility] [address] [place], [address] Hematocrit (Bld) [Volume fraction] 44.5 % Normal 40-54 [facility] [facility] Comment on above: Order Comment: 109-1 Performed By: #### L 100.0100 ####[facility] [address] [place], [address] Hemoglobin (Bld) [Mass/Vol] 14.3 g/dL Normal 13.0-16.5 [facility] Comment on above: Order Comment: 109-1 Performed By: #### L 100.0100 ####[facility] [address] [place], [address] IG% 0.300 Normal 0.0-0.9 [facility] Comment on above: Order Comment: 109-1 Result Comment: IG% - Immature Granulocytes (promyelocytes, myelocytes andmetamyelocytes) > 1% indicates that a LEFT SHIFT is Present. Performed By: #### L 100.0100 ####[facility] [address] [place], [address] Lymphocytes/100 WBC (Bld) 22.0 % Normal 19-41 [facility] Comment on above: Order Comment: 109-1 Performed By: #### L 100.0100 ####[facility] [address] [place], [address] MCH (RBC) [Entitic mass] 29.7 pg Normal 27.0-32.0 [facility] Comment on above: Order Comment: 109-1 Performed By: #### L 100.0100 ####[facility] [address] [place], [address] MCHC (RBC) [Mass/Vol] 32.1 g/dL Normal 32-36 [facility] Comment on above: Order Comment: 109-1 Performed By: #### L 100.0100 ####[facility] [address] [place], [address] MCV (RBC) [Entitic vol] 92.5 fL Normal 80-94 [facility] Comment on above: Order Comment: 109-1 Performed By: #### L 100.0100 ####[facility] [address] [place], [address] Monocytes/100 WBC (Bld) 8.3 % Normal 0-10 [facility] Comment on above: Order Comment: 109-1 Performed By: #### L 100.0100 ####[facility] [address] [place], [address] Neutrophils/100 WBC (Bld) 68.5 % Normal 47-70 [facility] Comment on above: Order Comment: 109-1 Performed By: #### L 100.0100 ####[facility] [address] [place], [address] Nucleated RBC (Bld) [#/Vol] 0 10*3/uL Normal 0-5 [facility] Comment on above: Order Comment: 109-1 Performed By: #### L 100.0100 ####[facility] [address] [place], [address] Platelet mean volume (Bld) [Entitic vol] 11.0 fL Normal 6.2-12.0 [facility] Comment on above: Order Comment: 109-1 Performed By: #### L 100.0100 ####[facility] [address] [place], [address] Platelets (Bld) [#/Vol] 190 10*3/uL Normal 150-450 [facility] Comment on above: Order Comment: 109-1 Performed By: #### L 100.0100 ####[facility] [address] [place], [address] RBC (Bld) [#/Vol] 4.81 10*6/uL Normal 4.6-6.2 [facility] Comment on above: Order Comment: 109-1 Performed By: #### L 100.0100 ####[facility] [address] [place], [address] RDW SD 43.0 fl Normal 35.1-43.9 [facility] Comment on above: Order Comment: 109-1 Performed By: #### L 100.0100 ####[facility] [address] [place], [address] WBC (Bld) [#/Vol] 11.9 10*3/uL High 4.4-11.0 [facility] Comment on above: Order Comment: 109-1 Performed By: #### L 100.0100 ####[facility] [address] [place], [address] Eosinophil percentageOrdered By: Renard Burgos on 04-22-2024 Eosinophils/100 WBC (Bld) 0.4 % 0-5 [facility] Erythrocyte distribution wid th ratioOrdered By: Renard Burgos on 04-22-2024 Erythrocyte distribution width (RBC) [Ratio] 12.6 % 11.6-14.6 [facility] Erythrocyte distribution wid th standard deviationOrdered By: Renard Burgos on 04-22-2024 Erythrocyte distribution width (RBC) [Entitic vol] 43.0 fL 35.1-43.9 [facility] Hematocrit Auto (Bld) [Volum e fraction]Ordered By: Renard Burgos on 04-22-2024 Hematocrit (Bld) [Volume fraction] 44.5 % 40-54 [facility] Hemoglobin measurementOrdere d By: Renard Burgos on 04-22-2024 Hemoglobin (Bld) [Mass/Vol] 14.3 g/dL 13.0-16.5 [facility] Immature granulocytes/100 WB C Auto (Bld)Ordered By: Renard Burgos on 04-22-2024 Immature granulocytes/100 WBC (Bld) 0.300 % 0.0-0.9 [facility] Comment on above: IG% - Immature Granu locytes (promyelocytes, myelocytes and metamyelocytes) > 1% indicates that a LEFT SHIFT is Present. Lymphocytes Auto (Unsp spec) [#/Vol]Ordered By: Renard Burgos on 04-22-2024 Lymphocytes (Bld) [#/Vol] 2.61 10*3/uL 0.83-4.51 [facility] Lymphocytes/100 WBC Auto (Un sp spec)Ordered By: Renard Burgos on 04-22-2024 Lymphocytes/100 WBC (Bld) 22.0 % 19-41 [facility] MCV (mean corpuscular volume ) determinationOrdered By: Renard Burgos on 04-22-2024 MCV (RBC) [Entitic vol] 92.5 fL 80-94 [facility] Mean corpuscular hemoglobin (MCH) determinationOrdered By: Renard Burgos on 04-22-2024 MCH (RBC) [Entitic mass] 29.7 pg 27.0-32.0 [facility] Mean corpuscular hemoglobin concentration (MCHC) determinationOrdered By: Renard Burgos on 04-22-2024 MCHC (RBC) [Mass/Vol] 32.1 g/dL 32-36 [facility] Mean platelet volume determi nationOrdered By: Renard Burgos on 04-22-2024 Platelet mean volume (Bld) [Entitic vol] 11.0 fL 6.2-12.0 [facility] Monocyte percentageOrdered B y: Renard Burgos on 04-22-2024 Monocytes/100 WBC (Bld) 8.3 % 0-10 [facility] Neutrophil percentageOrdered By: Renard Burgos on 04-22-2024 Neutrophils/100 WBC (Bld) 68.5 % 47-70 [facility] Nucleated red blood cell per centageOrdered By: Renard Burgos on 04-22-2024 Nucleated RBC/100 WBC (Bld) [Ratio] 0 % 0-5 [facility] Platelet countOrdered By: Garrick Bhatt on 04-22-2024 Platelets (Bld) [#/Vol] 190 10*3/uL 150-450 [facility] RBC Auto (Bld) [#/Vol]Ordere d By: Renard Burgos on 04-22-2024 RBC (Bld) [#/Vol] 4.81 10*6/uL 4.6-6.2 [facility] White blood cell (WBC) count Ordered By: Renard Burgos on 04-22-2024 WBC (Bld) [#/Vol] 11.9 10*3/uL High 4.4-11.0 [facility] Absolute neutrophil countOrd ered By: Renard Burgos on 04-15-2024 Neutrophils (Bld) [#/Vol] 8.7 10*3/uL High 2.0-7.7 [facility] Basophil percentageOrdered B y: Renard Burgos on 04-15-2024 Basophils/100 WBC (Bld) 0.3 % 0-1 [facility] Bilirubin, totalOrdered By: Renard Burgos on 04-15-2024 Bilirubin [Mass/Vol] 0.30 mg/dL 0.20-1.00 [facility] Comment on above: For patients on eltr ombopag therapy, use of Dimension [place] TBIL is not recommended. Bilirubin.direct [Mass/Vol]O rdered By: Renard Burgos on 04-15-2024 Direct Bilirubin < 0.05 mg/dL 0.00-0.30 [facility] CBC W/Diff, Automatedon 03-31 Absolute Lymph 1.93 X10 3/uL Normal 0.83-4.51 [facility] Comment on above: Order Comment: 109-1 Performed By: #### L 100.0100, L500.3400 ####[facility] [address] [place], [address] Absolute Neut 8.7 X10 3/uL High 2.0-7.7 [facility] Comment on above: Order Comment: 109-1 Performed By: #### L 100.0100, L500.3400 ####[facility] [address] [place], [address] Basophils/100 WBC (Bld) 0.3 % Normal 0-1 [facility] Comment on above: Order Comment: 109-1 Performed By: #### L 100.0100, L500.3400 ####[facility] [address] [place], [address] Eosinophils/100 WBC (Bld) 0.4 % Normal 0-5 [facility] Comment on above: Order Comment: 109-1 Performed By: #### L 100.0100, L500.3400 ####[facility] [address] [place], [address] Erythrocyte distribution width (RBC) [Ratio] 12.8 % Normal 11.6-14.6 [facility] Comment on above: Order Comment: 109-1 Performed By: #### L 100.0100, L500.3400 ####[facility] [address] [place], [address] Hematocrit (Bld) [Volume fraction] 42.5 % Normal 40-54 [facility] Comment on above: Order Comment: 109-1 Performed By: #### L 100.0100, L500.3400 ####[facility] [address] [place], [address] Hemoglobin (Bld) [Mass/Vol] 13.7 g/dL Normal 13.0-16.5 [facility] Comment on above: Order Comment: 109-1 Performed By: #### L 100.0100, L500.3400 ####[facility] [address] [place], [address] IG% 0.400 Normal 0.0-0.9 [facility] Comment on above: Order Comment: 109-1 Result Comment: IG% - Immature Granulocytes (promyelocytes, myelocytes andmetamyelocytes) > 1% indicates that a LEFT SHIFT is Present. Performed By: #### L 100.0100, L500.3400 ####[facility] [address] [place], [address] Lymphocytes/100 WBC (Bld) 16.9 % Low 19-41 [facility] Comment on above: Order Comment: 109-1 Performed By: #### L 100.0100, L500.3400 ####[facility] [address] [place], [address] MCH (RBC) [Entitic mass] 29.5 pg Normal 27.0-32.0 [facility] Comment on above: Order Comment: 109-1 Performed By: #### L 100.0100, L500.3400 ####[facility] [address] [place], [address] MCHC (RBC) [Mass/Vol] 32.2 g/dL Normal 32-36 [facility] Comment on above: Order Comment: 109-1 Performed By: #### L 100.0100, L500.3400 ####[facility] [address] [place], [address] MCV (RBC) [Entitic vol] 91.6 fL Normal 80-94 [facility] Comment on above: Order Comment: 109-1 Performed By: #### L 100.0100, L500.3400 ####[facility] [address] [place], [address] Monocytes/100 WBC (Bld) 6.0 % Normal 0-10 [facility] Comment on above: Order Comment: 109-1 Performed By: #### L 100.0100, L500.3400 ####[facility] [address] [place], [address] Neutrophils/100 WBC (Bld) 76.0 % High 47-70 [facility] Comment on above: Order Comment: 109-1 Performed By: #### L 100.0100, L500.3400 ####[facility] [address] [place], [address] Nucleated RBC (Bld) [#/Vol] 0 10*3/uL Normal 0-5 [facility] Comment on above: Order Comment: 109-1 Performed By: #### L 100.0100, L500.3400 ####[facility] [address] [place], [address] Platelet mean volume (Bld) [Entitic vol] 11.1 fL Normal 6.2-12.0 [facility] Comment on above: Order Comment: 109-1 Performed By: #### L 100.0100, L500.3400 ####[facility] [address] [place], [address] Platelets (Bld) [#/Vol] 197 10*3/uL Normal 150-450 [facility] Comment on above: Order Comment: 109-1 Performed By: #### L 100.0100, L500.3400 ####[facility] [address] [place], [address] RBC (Bld) [#/Vol] 4.64 10*6/uL Normal 4.6-6.2 [facility] Comment on above: Order Comment: 109-1 Performed By: #### L 100.0100, L500.3400 ####[facility] [address] [place], [address] RDW SD 42.5 fl Normal 35.1-43.9 [facility] Comment on above: Order Comment: 109-1 Performed By: #### L 100.0100, L500.3400 ####[facility] [address] [place], [address] WBC (Bld) [#/Vol] 11.4 10*3/uL High 4.4-11.0 [facility] Comment on above: Order Comment: 109-1 Performed By: #### L 100.0100, L500.3400 ####[facility] [address] [place], [address] Eosinophil percentageOrdered By: Renard Burgos on 04-15-2024 Eosinophils/100 WBC (Bld) 0.4 % 0-5 [facility] Erythrocyte distribution wid th ratioOrdered By: Renard Burgos on 04-15-2024 Erythrocyte distribution width (RBC) [Ratio] 12.8 % 11.6-14.6 [facility] Erythrocyte distribution wid th standard deviationOrdered By: Renard Burgos on 04-15-2024 Erythrocyte distribution width (RBC) [Entitic vol] 42.5 fL 35.1-43.9 [facility] Hematocrit Auto (Bld) [Volum e fraction]Ordered By: Renard Burgos on 04-15-2024 Hematocrit (Bld) [Volume fraction] 42.5 % 40-54 [facility] Hemoglobin measurementOrdere d By: Renard Burgos on 04-15-2024 Hemoglobin (Bld) [Mass/Vol] 13.7 g/dL 13.0-16.5 [facility] Immature granulocytes/100 WB C Auto (Bld)Ordered By: Renard Burgos on 04-15-2024 Immature granulocytes/100 WBC (Bld) 0.400 % 0.0-0.9 [facility] Comment on above: IG% - Immature Granu locytes (promyelocytes, myelocytes and metamyelocytes) > 1% indicates that a LEFT SHIFT is Present. Laboratory - Chemistry and C hemistry - challengeOrdered By: Renard Burgos on 04-15-2024 AST [Catalytic activity/Vol] 18 U/L 15-37 [facility] Comment on above: Slight Hemolysis, Re sult may be falsely increased. Liver Profileon 04-15-2024 Albumin [Mass/Vol] 2.9 g/dL Low 3.2-5.0 [facility] Comment on above: Order Comment: 109-1 Performed By: #### L 100.0100, L500.3400 ####[facility] [address], [address] ALK P 126 U/L High 45-117 [facility] Comment on above: Order Comment: 109-1 Performed By: #### L 100.0100, L500.3400 ####[facility] [address] [place], [address] ALT [Catalytic activity/Vol] 21 U/L Normal 16-61 [facility] Comment on above: Order Comment: 109-1 Performed By: #### L 100.0100, L500.3400 ####[facility] [address] [place], [address] AST [Catalytic activity/Vol] 18 U/L Normal 15-37 [facility] Comment on above: Order Comment: 109-1 Result Comment: Slig ht Hemolysis, Result may be falsely increased. Performed By: #### L 100.0100, L500.3400 ####[facility] [address] [place], [address] Bilirubin [Mass/Vol] 0.30 mg/dL Normal 0.20-1.00 [facility] Comment on above: Order Comment: 109-1 Result Comment: For patients on eltrombopag therapy, use of Dimension [place] TBIL is not recommended. Performed By: #### L 100.0100, L500.3400 ####[facility] [address] [place], [address] D BILI < 0.05 Normal 0.00-0.30 [facility] Comment on above: Order Comment: 109-1 Performed By: #### L 100.0100, L500.3400 ####[facility] [address], [address] Globulin (S) [Mass/Vol] 3.0 g/dL Normal 2.2-4.2 [facility] Comment on above: Order Comment: 109-1 Performed By: #### L 100.0100, L500.3400 ####[facility] [address] [place], [address] T PROT 5.9 g/dL Low 6.4-8.2 [facility] Comment on above: Order Comment: 109-1 Performed By: #### L 100.0100, L500.3400 ####[facility] [address] [place], [address] Lymphocytes Auto (Unsp spec) [#/Vol]Ordered By: Renard Burgos on 04-15-2024 Lymphocytes (Bld) [#/Vol] 1.93 10*3/uL 0.83-4.51 [facility] Lymphocytes/100 WBC Auto (Un sp spec)Ordered By: Renard Burgos on 04-15-2024 Lymphocytes/100 WBC (Bld) 16.9 % Low 19-41 [facility] MCV (mean corpuscular volume ) determinationOrdered By: Renard Burgos on 04-15-2024 MCV (RBC) [Entitic vol] 91.6 fL 80-94 [facility] Mean corpuscular hemoglobin (MCH) determinationOrdered By: Renard Burgos on 04-15-2024 MCH (RBC) [Entitic mass] 29.5 pg 27.0-32.0 [facility] Mean corpuscular hemoglobin concentration (MCHC) determinationOrdered By: Renard Burgos on 04-15-2024 MCHC (RBC) [Mass/Vol] 32.2 g/dL 32-36 [facility] Mean platelet volume determi nationOrdered By: Renard Burgos on 04-15-2024 Platelet mean volume (Bld) [Entitic vol] 11.1 fL 6.2-12.0 [facility] Monocyte percentageOrdered B y: Renard Burgos on 04-15-2024 Monocytes/100 WBC (Bld) 6.0 % 0-10 [facility] Neutrophil percentageOrdered By: Renard Burgos on 04-15-2024 Neutrophils/100 WBC (Bld) 76.0 % High 47-70 [facility] Nucleated red blood cell per centageOrdered By: Renard Burgos on 04-15-2024 Nucleated RBC/100 WBC (Bld) [Ratio] 0 % 0-5 [facility] Platelet countOrdered By: Garrick Bhatt on 04-15-2024 Platelets (Bld) [#/Vol] 197 10*3/uL 150-450 [facility] RBC Auto (Bld) [#/Vol]Ordere d By: Renard Burgos on 04-15-2024 RBC (Bld) [#/Vol] 4.64 10*6/uL 4.6-6.2 [facility] Serum globulin measurementOr dered By: Renard Burgos on 04-15-2024 Globulin (S) [Mass/Vol] 3.0 g/dL 2.2-4.2 [facility] Serum or plasma alanine kay otransferase (ALT) measurementOrdered By: Renard Burgos on 04-15-2024 ALT [Catalytic activity/Vol] 21 U/L 16-61 [facility] Serum or plasma albumin gordy urement (mass/volume)Ordered By: Renard Burgos on 04-15-2024 Albumin [Mass/Vol] 2.9 g/dL Low 3.2-5.0 [facility] Serum or plasma alkaline trace sphatase measurementOrdered By: Renard Burgos on 04-15-2024 ALP [Catalytic activity/Vol] 126 U/L High 45-117 [facility] Total proteinOrdered By: Lyubov Burgos on 04-15-2024 Protein [Mass/Vol] 5.9 g/dL Low 6.4-8.2 [facility] White blood cell (WBC) count Ordered By: Renard Burgos on 04-15-2024 WBC (Bld) [#/Vol] 11.4 10*3/uL High 4.4-11.0 [facility] Absolute neutrophil countOrd ered By: Renard Burgos on 04-08-2024 Neutrophils (Bld) [#/Vol] 5.7 10*3/uL 2.0-7.7 [facility] Basophil percentageOrdered B y: Renard Burgos on 04-08-2024 Basophils/100 WBC (Bld) 0.6 % 0-1 [facility] CBC W/Diff, Automatedon 12-0 9-2023 Absolute Lymph 2.27 X10 3/uL Normal 0.83-4.51 [facility] Comment on above: Order Comment: 109.1 Performed By: #### L 100.0100 ####[facility] [address] [place], [address] Absolute Neut 5.7 X10 3/uL Normal 2.0-7.7 [facility] Comment on above: Order Comment: 109.1 Performed By: #### L 100.0100 ####[facility] [address] [place], [address] Basophils/100 WBC (Bld) 0.6 % Normal 0-1 [facility] Comment on above: Order Comment: 109.1 Performed By: #### L 100.0100 ####[facility] [address] [place], [address] Eosinophils/100 WBC (Bld) 0.5 % Normal 0-5 [facility] Comment on above: Order Comment: 109.1 Performed By: #### L 100.0100 ####[facility] [address] [place], [address] Erythrocyte distribution width (RBC) [Ratio] 12.6 % Normal 11.6-14.6 [facility] Comment on above: Order Comment: 109.1 Performed By: #### L 100.0100 ####[facility] [address] [place], [address] Hematocrit (Bld) [Volume fraction] 41.2 % Normal 40-54 [facility] Comment on above: Order Comment: 109.1 Performed By: #### L 100.0100 ####[facility] [address] [place], [address] Hemoglobin (Bld) [Mass/Vol] 13.3 g/dL Normal 13.0-16.5 [facility] Comment on above: Order Comment: 109.1 Performed By: #### L 100.0100 ####[facility] [address] [place], [address] IG% 0.200 Normal 0.0-0.9 [facility] Comment on above: Order Comment: 109.1 Result Comment: IG% - Immature Granulocytes (promyelocytes, myelocytes andmetamyelocytes) > 1% indicates that a LEFT SHIFT is Present. Performed By: #### L 100.0100 ####[facility] [address] [place], [address] Lymphocytes/100 WBC (Bld) 26.0 % Normal 19-41 [facility] Comment on above: Order Comment: 109.1 Performed By: #### L 100.0100 ####[facility] [address] [place], [address] MCH (RBC) [Entitic mass] 29.6 pg Normal 27.0-32.0 [facility] Comment on above: Order Comment: 109.1 Performed By: #### L 100.0100 ####[facility] [address] [place], [address] MCHC (RBC) [Mass/Vol] 32.3 g/dL Normal 32-36 [facility] Comment on above: Order Comment: 109.1 Performed By: #### L 100.0100 ####[facility] [address] [place], [address] MCV (RBC) [Entitic vol] 91.8 fL Normal 80-94 [facility] Comment on above: Order Comment: 109.1 Performed By: #### L 100.0100 ####[facility] [address] [place], [address] Monocytes/100 WBC (Bld) 7.8 % Normal 0-10 [facility] Comment on above: Order Comment: 109.1 Performed By: #### L 100.0100 ####[facility] [address] [place], [address] Neutrophils/100 WBC (Bld) 64.9 % Normal 47-70 [facility] Comment on above: Order Comment: 109.1 Performed By: #### L 100.0100 ####[facility] [address] [place], [address] Nucleated RBC (Bld) [#/Vol] 0 10*3/uL Normal 0-5 [facility] Comment on above: Order Comment: 109.1 Performed By: #### L 100.0100 ####[facility] [address] [place], [address] Platelet mean volume (Bld) [Entitic vol] 10.8 fL Normal 6.2-12.0 [facility] Comment on above: Order Comment: 109.1 Performed By: #### L 100.0100 ####[facility] [address] [place], [address] Platelets (Bld) [#/Vol] 208 10*3/uL Normal 150-450 [facility] Comment on above: Order Comment: 109.1 Performed By: #### L 100.0100 ####[facility] [address] [place], [address] RBC (Bld) [#/Vol] 4.49 10*6/uL Low 4.6-6.2 [facility] Comment on above: Order Comment: 109.1 Performed By: #### L 100.0100 ####[facility] [address] [place], [address] RDW SD 42.4 fl Normal 35.1-43.9 [facility] Comment on above: Order Comment: 109.1 Performed By: #### L 100.0100 ####[facility] [address] [place], [address] WBC (Bld) [#/Vol] 8.7 10*3/uL Normal 4.4-11.0 [facility] Comment on above: Order Comment: 109.1 Performed By: #### L 100.0100 ####[facility] [address] [place], [address] Eosinophil percentageOrdered By: Renard Burgos on 04-08-2024 Eosinophils/100 WBC (Bld) 0.5 % 0-5 [facility] Erythrocyte distribution wid th ratioOrdered By: Renard Burgos on 04-08-2024 Erythrocyte distribution width (RBC) [Ratio] 12.6 % 11.6-14.6 [facility] Erythrocyte distribution wid th standard deviationOrdered By: Renard Burgos on 04-08-2024 Erythrocyte distribution width (RBC) [Entitic vol] 42.4 fL 35.1-43.9 [facility] Hematocrit Auto (Bld) [Volum e fraction]Ordered By: Renard Burgos on 04-08-2024 Hematocrit (Bld) [Volume fraction] 41.2 % 40-54 [facility] Hemoglobin measurementOrdere d By: Renard Burgos on 04-08-2024 Hemoglobin (Bld) [Mass/Vol] 13.3 g/dL 13.0-16.5 [facility] Immature granulocytes/100 WB C Auto (Bld)Ordered By: Renard Burgos on 04-08-2024 Immature granulocytes/100 WBC (Bld) 0.200 % 0.0-0.9 [facility] Comment on above: IG% - Immature Granu locytes (promyelocytes, myelocytes and metamyelocytes) > 1% indicates that a LEFT SHIFT is Present. Lymphocytes Auto (Unsp spec) [#/Vol]Ordered By: Renard Burgos on 04-08-2024 Lymphocytes (Bld) [#/Vol] 2.27 10*3/uL 0.83-4.51 [facility] Lymphocytes/100 WBC Auto (Un sp spec)Ordered By: Renard Burgos on 04-08-2024 Lymphocytes/100 WBC (Bld) 26.0 % 19-41 [facility] MCV (mean corpuscular volume ) determinationOrdered By: Renard Burgos on 04-08-2024 MCV (RBC) [Entitic vol] 91.8 fL 80-94 [facility] Mean corpuscular hemoglobin (MCH) determinationOrdered By: Renard Burgos on 04-08-2024 MCH (RBC) [Entitic mass] 29.6 pg 27.0-32.0 [facility] Mean corpuscular hemoglobin concentration (MCHC) determinationOrdered By: Renard Burgos on 04-08-2024 MCHC (RBC) [Mass/Vol] 32.3 g/dL 32-36 [facility] Mean platelet volume determi nationOrdered By: Renard Burgos on 04-08-2024 Platelet mean volume (Bld) [Entitic vol] 10.8 fL 6.2-12.0 [facility] Monocyte percentageOrdered B y: Renard Burgos on 04-08-2024 Monocytes/100 WBC (Bld) 7.8 % 0-10 [facility] Neutrophil percentageOrdered By: Renard Burgos on 04-08-2024 Neutrophils/100 WBC (Bld) 64.9 % 47-70 [facility] Nucleated red blood cell per centageOrdered By: Renard Burgos on 04-08-2024 Nucleated RBC/100 WBC (Bld) [Ratio] 0 % 0-5 [facility] Platelet countOrdered By: Garrick Bhatt on 04-08-2024 Platelets (Bld) [#/Vol] 208 10*3/uL 150-450 [facility] RBC Auto (Bld) [#/Vol]Ordere d By: Renard Burgos on 04-08-2024 RBC (Bld) [#/Vol] 4.49 10*6/uL Low 4.6-6.2 [facility] White blood cell (WBC) count Ordered By: Renard Burgos on 04-08-2024 WBC (Bld) [#/Vol] 8.7 10*3/uL 4.4-11.0 [facility] Absolute neutrophil countOrd ered By: Renard Burgos on 04-01-2024 Neutrophils (Bld) [#/Vol] 7.1 10*3/uL 2.0-7.7 [facility] Basophil percentageOrdered B y: Renard Burgos on 04-01-2024 Basophils/100 WBC (Bld) 0.4 % 0-1 [facility] CBC W/Diff, Automatedon Absolute Lymph 1.97 X10 3/uL Normal 0.83-4.51 [facility] Comment on above: Order Comment: 109-1 Performed By: #### L 100.0100 ####[facility] [address] [place], [address] Absolute Neut 7.1 X10 3/uL Normal 2.0-7.7 [facility] Comment on above: Order Comment: 109-1 Performed By: #### L 100.0100 ####[facility] [address] [place], [address] Basophils/100 WBC (Bld) 0.4 % Normal 0-1 [facility] Comment on above: Order Comment: 109-1 Performed By: #### L 100.0100 ####[facility] [address] [place], [address] Eosinophils/100 WBC (Bld) 0.4 % Normal 0-5 [facility] Comment on above: Order Comment: 109-1 Performed By: #### L 100.0100 ####[facility] [address] [place], [address] Erythrocyte distribution width (RBC) [Ratio] 12.6 % Normal 11.6-14.6 [facility] Comment on above: Order Comment: 109-1 Performed By: #### L 100.0100 ####[facility] [address] [place], [address] Hematocrit (Bld) [Volume fraction] 41.7 % Normal 40-54 [facility] Comment on above: Order Comment: 109-1 Performed By: #### L 100.0100 ####[facility] [address] [place], [address] Hemoglobin (Bld) [Mass/Vol] 13.6 g/dL Normal 13.0-16.5 [facility] Comment on above: Order Comment: 109-1 Performed By: #### L 100.0100 ####[facility] [address] [place], [address] IG% 0.300 Normal 0.0-0.9 [facility] Comment on above: Order Comment: 109-1 Result Comment: IG% - Immature Granulocytes (promyelocytes, myelocytes andmetamyelocytes) > 1% indicates that a LEFT SHIFT is Present. Performed By: #### L 100.0100 ####[facility] [address] [place], [address] Lymphocytes/100 WBC (Bld) 20.0 % Normal 19-41 [facility] Comment on above: Order Comment: 109-1 Performed By: #### L 100.0100 ####[facility] [address] [place], [address] MCH (RBC) [Entitic mass] 29.7 pg Normal 27.0-32.0 [facility] Comment on above: Order Comment: 109-1 Performed By: #### L 100.0100 ####[facility] [address] [place], [address] MCHC (RBC) [Mass/Vol] 32.6 g/dL Normal 32-36 [facility] Comment on above: Order Comment: 109-1 Performed By: #### L 100.0100 ####[facility] [address] [place], [address] MCV (RBC) [Entitic vol] 91.0 fL Normal 80-94 [facility] Comment on above: Order Comment: 109-1 Performed By: #### L 100.0100 ####[facility] [address] [place], [address] Monocytes/100 WBC (Bld) 7.1 % Normal 0-10 [facility] Comment on above: Order Comment: 109-1 Performed By: #### L 100.0100 ####[facility] [address] [place], [address] Neutrophils/100 WBC (Bld) 71.8 % High 47-70 [facility] Comment on above: Order Comment: 109-1 Performed By: #### L 100.0100 ####[facility] [address] [place], [address] Nucleated RBC (Bld) [#/Vol] 0 10*3/uL Normal 0-5 [facility] Comment on above: Order Comment: 109-1 Performed By: #### L 100.0100 ####[facility] [address] [place], [address] Platelet mean volume (Bld) [Entitic vol] 11.3 fL Normal 6.2-12.0 [facility] Comment on above: Order Comment: 109-1 Performed By: #### L 100.0100 ####[facility] [address] [place], [address] Platelets (Bld) [#/Vol] 195 10*3/uL Normal 150-450 [facility] Comment on above: Order Comment: 109-1 Performed By: #### L 100.0100 ####[facility] [address] [place], [address] RBC (Bld) [#/Vol] 4.58 10*6/uL Low 4.6-6.2 [facility] Comment on above: Order Comment: 109-1 Performed By: #### L 100.0100 ####[facility] [address] [place], [address] RDW SD 41.2 fl Normal 35.1-43.9 [facility] Comment on above: Order Comment: 109-1 Performed By: #### L 100.0100 ####[facility] [address] [place], [place], [address] WBC (Bld) [#/Vol] 9.8 10*3/uL Normal 4.4-11.0 [facility] Comment on above: Order Comment: 109-1 Performed By: #### L 100.0100 ####[facility] [address] [place], [place], [address] Eosinophil percentageOrdered By: Renard Burgos on 04-01-2024 Eosinophils/100 WBC (Bld) 0.4 % 0-5 [facility] Erythrocyte distribution wid th ratioOrdered By: Renard Burgos on 04-01-2024 Erythrocyte distribution width (RBC) [Ratio] 12.6 % 11.6-14.6 [facility] Erythrocyte distribution wid th standard deviationOrdered By: Renard Burgos on 04-01-2024 Erythrocyte distribution width (RBC) [Entitic vol] 41.2 fL 35.1-43.9 [facility] Hematocrit Auto (Bld) [Volum e fraction]Ordered By: Renard Burgos on 04-01-2024 Hematocrit (Bld) [Volume fraction] 41.7 % 40-54 [facility] Hemoglobin measurementOrdere d By: Renard Burgos on 04-01-2024 Hemoglobin (Bld) [Mass/Vol] 13.6 g/dL 13.0-16.5 [facility] Immature granulocytes/100 WB C Auto (Bld)Ordered By: Renard Burgos on 04-01-2024 Immature granulocytes/100 WBC (Bld) 0.300 % 0.0-0.9 [facility] Comment on above: IG% - Immature Granu locytes (promyelocytes, myelocytes and metamyelocytes) > 1% indicates that a LEFT SHIFT is Present. Lymphocytes Auto (Unsp spec) [#/Vol]Ordered By: Renard Burgos on 04-01-2024 Lymphocytes (Bld) [#/Vol] 1.97 10*3/uL 0.83-4.51 [facility] Lymphocytes/100 WBC Auto (Un sp spec)Ordered By: Renard Burgos on 04-01-2024 Lymphocytes/100 WBC (Bld) 20.0 % 19-41 [facility] MCV (mean corpuscular volume ) determinationOrdered By: Renard Burgos on 04-01-2024 MCV (RBC) [Entitic vol] 91.0 fL 80-94 [facility] Mean corpuscular hemoglobin (MCH) determinationOrdered By: Renard Burgos on 04-01-2024 MCH (RBC) [Entitic mass] 29.7 pg 27.0-32.0 [facility] Mean corpuscular hemoglobin concentration (MCHC) determinationOrdered By: Renard Burgos on 04-01-2024 MCHC (RBC) [Mass/Vol] 32.6 g/dL 32-36 [facility] Mean platelet volume determi nationOrdered By: Renard Burgos on 04-01-2024 Platelet mean volume (Bld) [Entitic vol] 11.3 fL 6.2-12.0 [facility] Monocyte percentageOrdered B y: Renard Burgos on 04-01-2024 Monocytes/100 WBC (Bld) 7.1 % 0-10 [facility] Neutrophil percentageOrdered By: Renard Burgos on 04-01-2024 Neutrophils/100 WBC (Bld) 71.8 % High 47-70 [facility] Nucleated red blood cell per centageOrdered By: Renard Burgos on 04-01-2024 Nucleated RBC/100 WBC (Bld) [Ratio] 0 % 0-5 [facility] Platelet countOrdered By: Garrick Bhatt on 04-01-2024 Platelets (Bld) [#/Vol] 195 10*3/uL 150-450 [facility] RBC Auto (Bld) [#/Vol]Ordere d By: Renard Burgos on 04-01-2024 RBC (Bld) [#/Vol] 4.58 10*6/uL Low 4.6-6.2 [facility] White blood cell (WBC) count Ordered By: Renard Burgos on 04-01-2024 WBC (Bld) [#/Vol] 9.8 10*3/uL 4.4-11.0 [facility] Absolute neutrophil countOrd ered By: Renard Burgos on 03-25-2024 Neutrophils (Bld) [#/Vol] 5.4 10*3/uL 2.0-7.7 [facility] Basophil percentageOrdered B y: Renard Burgos on 03-25-2024 Basophils/100 WBC (Bld) 0.5 % 0-1 [facility] CBC W/Diff, Automatedon 03-02 Absolute Lymph 2.14 X10 3/uL Normal 0.83-4.51 [facility] Comment on above: Order Comment: 109-1 Performed By: #### L 100.0100 ####[facility] [address] [place], [address] Absolute Neut 5.4 X10 3/uL Normal 2.0-7.7 [facility] Comment on above: Order Comment: 109-1 Performed By: #### L 100.0100 ####[facility] [address] [place], [address] Basophils/100 WBC (Bld) 0.5 % Normal 0-1 [facility] Comment on above: Order Comment: 109-1 Performed By: #### L 100.0100 ####[facility] [address] [place], [address] Eosinophils/100 WBC (Bld) 0.7 % Normal 0-5 [facility] Comment on above: Order Comment: 109-1 Performed By: #### L 100.0100 ####[facility] [address] [place], [address] Erythrocyte distribution width (RBC) [Ratio] 12.7 % Normal 11.6-14.6 [facility] Comment on above: Order Comment: 109-1 Performed By: #### L 100.0100 ####[facility] [address] [place], [address] Hematocrit (Bld) [Volume fraction] 42.3 % Normal 40-54 [facility] Comment on above: Order Comment: 109-1 Performed By: #### L 100.0100 ####[facility] [address] [place], [address] Hemoglobin (Bld) [Mass/Vol] 13.7 g/dL Normal 13.0-16.5 [facility] Comment on above: Order Comment: 109-1 Performed By: #### L 100.0100 ####[facility] [address] [place], [address] IG% 0.500 Normal 0.0-0.9 [facility] Comment on above: Order Comment: 109-1 Result Comment: IG% - Immature Granulocytes (promyelocytes, myelocytes andmetamyelocytes) > 1% indicates that a LEFT SHIFT is Present. Performed By: #### L 100.0100 ####[facility] [address] [place], [address] Lymphocytes/100 WBC (Bld) 25.8 % Normal 19-41 [facility] Comment on above: Order Comment: 109-1 Performed By: #### L 100.0100 ####[facility] [address] [place], [address] MCH (RBC) [Entitic mass] 29.2 pg Normal 27.0-32.0 [facility] Comment on above: Order Comment: 109-1 Performed By: #### L 100.0100 ####[facility] [address] [place], [address] MCHC (RBC) [Mass/Vol] 32.4 g/dL Normal 32-36 [facility] Comment on above: Order Comment: 109-1 Performed By: #### L 100.0100 ####[facility] [address] [place], [address] MCV (RBC) [Entitic vol] 90.2 fL Normal 80-94 [facility] Comment on above: Order Comment: 109-1 Performed By: #### L 100.0100 ####[facility] [address] [place], [address] Monocytes/100 WBC (Bld) 8.0 % Normal 0-10 [facility] Comment on above: Order Comment: 109-1 Performed By: #### L 100.0100 ####[facility] [address] [place], [address] Neutrophils/100 WBC (Bld) 64.5 % Normal 47-70 [facility] Comment on above: Order Comment: 109-1 Performed By: #### L 100.0100 ####[facility] [address] [place], [address] Nucleated RBC (Bld) [#/Vol] 0 10*3/uL Normal 0-5 [facility] Comment on above: Order Comment: 109-1 Performed By: #### L 100.0100 ####[facility] [address] [place], [address] Platelet mean volume (Bld) [Entitic vol] 11.2 fL Normal 6.2-12.0 [facility] Comment on above: Order Comment: 109-1 Performed By: #### L 100.0100 ####[facility] [address] [place], [address] Platelets (Bld) [#/Vol] 204 10*3/uL Normal 150-450 [facility] Comment on above: Order Comment: 109-1 Performed By: #### L 100.0100 ####[facility] [address] [place], [address] RBC (Bld) [#/Vol] 4.69 10*6/uL Normal 4.6-6.2 [facility] Comment on above: Order Comment: 109-1 Performed By: #### L 100.0100 ####[facility] [address] [place], [address] RDW SD 41.8 fl Normal 35.1-43.9 [facility] Comment on above: Order Comment: 109-1 Performed By: #### L 100.0100 ####[facility] [address] [place], [place], [address] WBC (Bld) [#/Vol] 8.3 10*3/uL Normal 4.4-11.0 [facility] Comment on above: Order Comment: 109-1 Performed By: #### L 100.0100 ####[facility] [address] [place], [address] Eosinophil percentageOrdered By: Renard Burgos on 03-25-2024 Eosinophils/100 WBC (Bld) 0.7 % 0-5 [facility] Erythrocyte distribution wid th ratioOrdered By: Renard Burgos on 03-25-2024 Erythrocyte distribution width (RBC) [Ratio] 12.7 % 11.6-14.6 [facility] Erythrocyte distribution wid th standard deviationOrdered By: Renard Burgos on 03-25-2024 Erythrocyte distribution width (RBC) [Entitic vol] 41.8 fL 35.1-43.9 [facility] Hematocrit Auto (Bld) [Volum e fraction]Ordered By: Renard Burgos on 03-25-2024 Hematocrit (Bld) [Volume fraction] 42.3 % 40-54 [facility] Hemoglobin measurementOrdere d By: Renard Burgos on 03-25-2024 Hemoglobin (Bld) [Mass/Vol] 13.7 g/dL 13.0-16.5 [facility] Immature granulocytes/100 WB C Auto (Bld)Ordered By: Renard Burgos on 03-25-2024 Immature granulocytes/100 WBC (Bld) 0.500 % 0.0-0.9 [facility] Comment on above: IG% - Immature Granu locytes (promyelocytes, myelocytes and metamyelocytes) > 1% indicates that a LEFT SHIFT is Present. Lymphocytes Auto (Unsp spec) [#/Vol]Ordered By: Renard Burgos on 03-25-2024 Lymphocytes (Bld) [#/Vol] 2.14 10*3/uL 0.83-4.51 [facility] Lymphocytes/100 WBC Auto (Un sp spec)Ordered By: Renard Burgos on 03-25-2024 Lymphocytes/100 WBC (Bld) 25.8 % 19-41 [facility] MCV (mean corpuscular volume ) determinationOrdered By: Renard Burgos on 03-25-2024 MCV (RBC) [Entitic vol] 90.2 fL 80-94 [facility] Mean corpuscular hemoglobin (MCH) determinationOrdered By: Renard Burgos on 03-25-2024 MCH (RBC) [Entitic mass] 29.2 pg 27.0-32.0 [facility] Mean corpuscular hemoglobin concentration (MCHC) determinationOrdered By: Renard Burgos on 03-25-2024 MCHC (RBC) [Mass/Vol] 32.4 g/dL 32-36 [facility] Mean platelet volume determi nationOrdered By: Renard Burgos on 03-25-2024 Platelet mean volume (Bld) [Entitic vol] 11.2 fL 6.2-12.0 [facility] Monocyte percentageOrdered B y: Renard Burgos on 03-25-2024 Monocytes/100 WBC (Bld) 8.0 % 0-10 [facility] Neutrophil percentageOrdered By: Renard Burgos on 03-25-2024 Neutrophils/100 WBC (Bld) 64.5 % 47-70 [facility] Nucleated red blood cell per centageOrdered By: Renard Burgos on 03-25-2024 Nucleated RBC/100 WBC (Bld) [Ratio] 0 % 0-5 [facility] Platelet countOrdered By: Garrick Bhatt on 03-25-2024 Platelets (Bld) [#/Vol] 204 10*3/uL 150-450 [facility] RBC Auto (Bld) [#/Vol]Ordere d By: Renard Burgos on 03-25-2024 RBC (Bld) [#/Vol] 4.69 10*6/uL 4.6-6.2 [facility] White blood cell (WBC) count Ordered By: Renard Burgos on 03-25-2024 WBC (Bld) [#/Vol] 8.3 10*3/uL 4.4-11.0 [facility] Absolute neutrophil countOrd ered By: Renard Burgos on 03-18-2024 Neutrophils (Bld) [#/Vol] 5.2 10*3/uL 2.0-7.7 [facility] Basophil percentageOrdered B y: Renard Burgos on 03-18-2024 Basophils/100 WBC (Bld) 0.6 % 0-1 [facility] CBC W/Diff, Automatedon 03-01 Absolute Lymph 2.23 X10 3/uL Normal 0.83-4.51 [facility] Comment on above: Order Comment: 109.1 Performed By: #### L 100.0100 ####[facility] [address] [place], [address] Absolute Neut 5.2 X10 3/uL Normal 2.0-7.7 [facility] Comment on above: Order Comment: 109.1 Performed By: #### L 100.0100 ####[facility] [address] [place], [address] Basophils/100 WBC (Bld) 0.6 % Normal 0-1 [facility] Comment on above: Order Comment: 109.1 Performed By: #### L 100.0100 ####[facility] [address] [place], [address] Eosinophils/100 WBC (Bld) 0.7 % Normal 0-5 [facility] Comment on above: Order Comment: 109.1 Performed By: #### L 100.0100 ####[facility] [address] [place], [address] Erythrocyte distribution width (RBC) [Ratio] 12.8 % Normal 11.6-14.6 [facility] Comment on above: Order Comment: 109.1 Performed By: #### L 100.0100 ####[facility] [address] [place], [address] Hematocrit (Bld) [Volume fraction] 42.0 % Normal 40-54 [facility] Comment on above: Order Comment: 109.1 Performed By: #### L 100.0100 ####[facility] [address] [place], [address] Hemoglobin (Bld) [Mass/Vol] 13.6 g/dL Normal 13.0-16.5 [facility] Comment on above: Order Comment: 109.1 Performed By: #### L 100.0100 ####[facility] [address] [place], [address] IG% 0.500 Normal 0.0-0.9 [facility] Comment on above: Order Comment: 109.1 Result Comment: IG% - Immature Granulocytes (promyelocytes, myelocytes andmetamyelocytes) > 1% indicates that a LEFT SHIFT is Present. Performed By: #### L 100.0100 ####[facility] [address] [place], [address] Lymphocytes/100 WBC (Bld) 27.0 % Normal 19-41 [facility] Comment on above: Order Comment: 109.1 Performed By: #### L 100.0100 ####[facility] [address] [place], [address] MCH (RBC) [Entitic mass] 29.5 pg Normal 27.0-32.0 [facility] Comment on above: Order Comment: 109.1 Performed By: #### L 100.0100 ####[facility] [address] [place], [address] MCHC (RBC) [Mass/Vol] 32.4 g/dL Normal 32-36 [facility] Comment on above: Order Comment: 109.1 Performed By: #### L 100.0100 ####[facility] [address] [place], [address] MCV (RBC) [Entitic vol] 91.1 fL Normal 80-94 [facility] Comment on above: Order Comment: 109.1 Performed By: #### L 100.0100 ####[facility] [address] [place], [address] Monocytes/100 WBC (Bld) 8.5 % Normal 0-10 [facility] Comment on above: Order Comment: 109.1 Performed By: #### L 100.0100 ####[facility] [address] [place], [address] Neutrophils/100 WBC (Bld) 62.7 % Normal 47-70 [facility] Comment on above: Order Comment: 109.1 Performed By: #### L 100.0100 ####[facility] [address] [place], [address] Nucleated RBC (Bld) [#/Vol] 0 10*3/uL Normal 0-5 [facility] Comment on above: Order Comment: 109.1 Performed By: #### L 100.0100 ####[facility] [address] [place], [address] Platelet mean volume (Bld) [Entitic vol] 10.8 fL Normal 6.2-12.0 [facility] Comment on above: Order Comment: 109.1 Performed By: #### L 100.0100 ####[facility] [address] [place], [address] Platelets (Bld) [#/Vol] 211 10*3/uL Normal 150-450 [facility] Comment on above: Order Comment: 109.1 Performed By: #### L 100.0100 ####[facility] [address] [place], [address] RBC (Bld) [#/Vol] 4.61 10*6/uL Normal 4.6-6.2 [facility] Comment on above: Order Comment: 109.1 Performed By: #### L 100.0100 ####[facility] [address] [place], [address] RDW SD 42.3 fl Normal 35.1-43.9 [facility] Comment on above: Order Comment: 109.1 Performed By: #### L 100.0100 ####[facility] [address] [place], [address] WBC (Bld) [#/Vol] 8.3 10*3/uL Normal 4.4-11.0 [facility] Comment on above: Order Comment: 109.1 Performed By: #### L 100.0100 ####[facility] [address] [place], [address] Eosinophil percentageOrdered By: Renard Burgos on 03-18-2024 Eosinophils/100 WBC (Bld) 0.7 % 0-5 [facility] Erythrocyte distribution wid th ratioOrdered By: Renard Burgos on 03-18-2024 Erythrocyte distribution width (RBC) [Ratio] 12.8 % 11.6-14.6 [facility] Erythrocyte distribution wid th standard deviationOrdered By: Renard Burgos on 03-18-2024 Erythrocyte distribution width (RBC) [Entitic vol] 42.3 fL 35.1-43.9 [facility] Hematocrit Auto (Bld) [Volum e fraction]Ordered By: Renard Burgos on 03-18-2024 Hematocrit (Bld) [Volume fraction] 42.0 % 40-54 [facility] Hemoglobin measurementOrdere d By: Renard Burgos on 03-18-2024 Hemoglobin (Bld) [Mass/Vol] 13.6 g/dL 13.0-16.5 [facility] Immature granulocytes/100 WB C Auto (Bld)Ordered By: Renard Burgos on 03-18-2024 Immature granulocytes/100 WBC (Bld) 0.500 % 0.0-0.9 [facility] Comment on above: IG% - Immature Granu locytes (promyelocytes, myelocytes and metamyelocytes) > 1% indicates that a LEFT SHIFT is Present. Lymphocytes Auto (Unsp spec) [#/Vol]Ordered By: Renard Burgos on 03-18-2024 Lymphocytes (Bld) [#/Vol] 2.23 10*3/uL 0.83-4.51 [facility] Lymphocytes/100 WBC Auto (Un sp spec)Ordered By: Renard Burgos on 03-18-2024 Lymphocytes/100 WBC (Bld) 27.0 % 19-41 [facility] MCV (mean corpuscular volume ) determinationOrdered By: Renard Burgos on 03-18-2024 MCV (RBC) [Entitic vol] 91.1 fL 80-94 [facility] Mean corpuscular hemoglobin (MCH) determinationOrdered By: Renard Burgos on 03-18-2024 MCH (RBC) [Entitic mass] 29.5 pg 27.0-32.0 [facility] Mean corpuscular hemoglobin concentration (MCHC) determinationOrdered By: Renard Burgos on 03-18-2024 MCHC (RBC) [Mass/Vol] 32.4 g/dL 32-36 [facility] Mean platelet volume determi nationOrdered By: Renard Burgos on 03-18-2024 Platelet mean volume (Bld) [Entitic vol] 10.8 fL 6.2-12.0 [facility] Monocyte percentageOrdered B y: Renard Burgos on 03-18-2024 Monocytes/100 WBC (Bld) 8.5 % 0-10 [facility] Neutrophil percentageOrdered By: Renard Burgos on 03-18-2024 Neutrophils/100 WBC (Bld) 62.7 % 47-70 [facility] Nucleated red blood cell per centageOrdered By: Renard Burgos on 03-18-2024 Nucleated RBC/100 WBC (Bld) [Ratio] 0 % 0-5 [facility] Platelet countOrdered By: Garrick Bhatt on 03-18-2024 Platelets (Bld) [#/Vol] 211 10*3/uL 150-450 [facility] RBC Auto (Bld) [#/Vol]Ordere d By: Renard Burgos on 03-18-2024 RBC (Bld) [#/Vol] 4.61 10*6/uL 4.6-6.2 [facility] White blood cell (WBC) count Ordered By: Renard Burgos on 03-18-2024 WBC (Bld) [#/Vol] 8.3 10*3/uL 4.4-11.0 [facility] Absolute neutrophil countOrd ered By: Renard Burgos on 03-11-2024 Neutrophils (Bld) [#/Vol] 6.2 10*3/uL 2.0-7.7 [facility] Automated blood erythrocyte countOrdered By: Renard Burgos on 03-11-2024 RBC (Bld) [#/Vol] 4.54 10*6/uL Low 4.6-6.2 [facility] Comment on above: Order Comment: 109.1 Performed By: #### L 100.0100 ####[facility] [address] [place], [address] Automated blood hematocrit ( percentage)Ordered By: Renard Burgos on 03-11-2024 Hematocrit (Bld) [Volume fraction] 41.5 % Normal 40-54 [facility] Comment on above: Order Comment: 109.1 Performed By: #### L 100.0100 ####[facility] [address] [place], [address] Automated lymphocyte count a s percentage of total leukocytesOrdered By: Renard Burgos on 03-11-2024 Lymphocytes/100 WBC (Bld) 25.6 % Normal 19-41 [facility] Comment on above: Order Comment: 109.1 Performed By: #### L 100.0100 ####[facility] [address] [place], [address] Basophil percentageOrdered B y: Renard Burgos on 03-11-2024 Basophils/100 WBC (Bld) 0.5 % Normal 0-1 [facility] Comment on above: Order Comment: 109.1 Performed By: #### L 100.0100 ####[facility] [address] [place], [address] CBC W/Diff, Automatedon 03-01 Absolute Lymph 2.50 X10 3/uL Normal 0.83-4.51 [facility] Comment on above: Order Comment: 109.1 Performed By: #### L 100.0100 ####[facility] [address] [place], [address] Absolute Neut 6.2 X10 3/uL Normal 2.0-7.7 [facility] Comment on above: Order Comment: 109.1 Performed By: #### L 100.0100 ####[facility] [address] [place], [address] IG% 0.500 Normal 0.0-0.9 [facility] Comment on above: Order Comment: 109.1 Result Comment: IG% - Immature Granulocytes (promyelocytes, myelocytes andmetamyelocytes) > 1% indicates that a LEFT SHIFT is Present. Performed By: #### L 100.0100 ####[facility] [address] [place], [address] Nucleated RBC (Bld) [#/Vol] 0 10*3/uL Normal 0-5 [facility] Comment on above: Order Comment: 109.1 Performed By: #### L 100.0100 ####[facility] [address] [place], [address] RDW SD 41.5 fl Normal 35.1-43.9 [facility] Comment on above: Order Comment: 109.1 Performed By: #### L 100.0100 ####[facility] [address] [place], [address] Eosinophil percentageOrdered By: Renard Burgos on 03-11-2024 Eosinophils/100 WBC (Bld) 0.6 % Normal 0-5 [facility] Comment on above: Order Comment: 109.1 Performed By: #### L 100.0100 ####[facility] [address] [place], [address] Erythrocyte distribution wid th ratioOrdered By: Renard Burgos on 03-11-2024 Erythrocyte distribution width (RBC) [Ratio] 12.7 % Normal 11.6-14.6 [facility] Comment on above: Order Comment: 109.1 Performed By: #### L 100.0100 ####[facility] [address] [place], [place], [address] Erythrocyte distribution wid th standard deviationOrdered By: Renard Burgos on 03-11-2024 Erythrocyte distribution width (RBC) [Entitic vol] 41.5 fL 35.1-43.9 [facility] Hemoglobin measurementOrdere d By: Renrad Burgos on 03-11-2024 Hemoglobin (Bld) [Mass/Vol] 13.8 g/dL Normal 13.0-16.5 [facility] Comment on above: Order Comment: 109.1 Performed By: #### L 100.0100 ####[facility] [address] [place], [address] Immature granulocytes/100 WB C Auto (Bld)Ordered By: Renard Burgos on 03-11-2024 Immature granulocytes/100 WBC (Bld) 0.500 % 0.0-0.9 [facility] Comment on above: IG% - Immature Granu locytes (promyelocytes, myelocytes and metamyelocytes) > 1% indicates that a LEFT SHIFT is Present. Lymphocytes Auto (Unsp spec) [#/Vol]Ordered By: Renard Burgos on 03-11-2024 Lymphocytes (Bld) [#/Vol] 2.50 10*3/uL 0.83-4.51 [facility] MCV (mean corpuscular volume ) determinationOrdered By: Renard Burgos on 03-11-2024 MCV (RBC) [Entitic vol] 91.4 fL Normal 80-94 [facility] Comment on above: Order Comment: 109.1 Performed By: #### L 100.0100 ####[facility] [address] [place], [address] Mean corpuscular hemoglobin (MCH) determinationOrdered By: Renard Burgos on 03-11-2024 MCH (RBC) [Entitic mass] 30.4 pg Normal 27.0-32.0 [facility] Comment on above: Order Comment: 109.1 Performed By: #### L 100.0100 ####[facility] [address] [place], [address] Mean corpuscular hemoglobin concentration (MCHC) determinationOrdered By: Renard Burgos on 03-11-2024 MCHC (RBC) [Mass/Vol] 33.3 g/dL Normal 32-36 [facility] Comment on above: Order Comment: 109.1 Performed By: #### L 100.0100 ####[facility] [address] [place], [address] Mean platelet volume determi nationOrdered By: Renard Burgos on 03-11-2024 Platelet mean volume (Bld) [Entitic vol] 11.0 fL Normal 6.2-12.0 [facility] Comment on above: Order Comment: 109.1 Performed By: #### L 100.0100 ####[facility] [address] [place], [address] Monocyte percentageOrdered B y: Renard Brugos on 03-11-2024 Monocytes/100 WBC (Bld) 9.0 % Normal 0-10 [facility] Comment on above: Order Comment: 109.1 Performed By: #### L 100.0100 ####[facility] [address] [place], [address] Neutrophil percentageOrdered By: Renard Burgos on 03-11-2024 Neutrophils/100 WBC (Bld) 63.8 % Normal 47-70 [facility] Comment on above: Order Comment: 109.1 Performed By: #### L 100.0100 ####[facility] [address] [place], [address] Nucleated red blood cell per centageOrdered By: Renard Burgos on 03-11-2024 Nucleated RBC/100 WBC (Bld) [Ratio] 0 % 0-5 [facility] Platelet countOrdered By: Garrick Bhatt on 03-11-2024 Platelets (Bld) [#/Vol] 220 10*3/uL Normal 150-450 [facility] Comment on above: Order Comment: 109.1 Performed By: #### L 100.0100 ####[facility] [address] [place], [address] White blood cell (WBC) count Ordered By: Renard Burgos on 03-11-2024 WBC (Bld) [#/Vol] 9.8 10*3/uL Normal 4.4-11.0 [facility] Comment on above: Order Comment: 109.1 Performed By: #### L 100.0100 ####[facility] [address] [place], [address] CBC W/Diff, Automatedon 11-0 Absolute Lymph 1.99 X10 3/uL Normal 0.83-4.51 [facility] Comment on above: Order Comment: 109.1 Performed By: #### L 100.0100 ####[facility] [address] [place], [address] Absolute Neut 5.3 X10 3/uL Normal 2.0-7.7 [facility] Comment on above: Order Comment: 109.1 Performed By: #### L 100.0100 ####[facility] [address] [place], [address] Basophils/100 WBC (Bld) 0.6 % Normal 0-1 [facility] Comment on above: Order Comment: 109.1 Performed By: #### L 100.0100 ####[facility] [address] [place], [address] Eosinophils/100 WBC (Bld) 0.7 % Normal 0-5 [facility] Comment on above: Order Comment: 109.1 Performed By: #### L 100.0100 ####[facility] [address] [place], [address] Erythrocyte distribution width (RBC) [Ratio] 12.7 % Normal 11.6-14.6 [facility] Comment on above: Order Comment: 109.1 Performed By: #### L 100.0100 ####[facility] [address] [place], [address] Hematocrit (Bld) [Volume fraction] 42.1 % Normal 40-54 [facility] Comment on above: Order Comment: 109.1 Performed By: #### L 100.0100 ####[facility] [address] [place], [address] Hemoglobin (Bld) [Mass/Vol] 14.0 g/dL Normal 13.0-16.5 [facility] Comment on above: Order Comment: 109.1 Performed By: #### L 100.0100 ####[facility] [address] [place], [address] IG% 0.400 Normal 0.0-0.9 [facility] Comment on above: Order Comment: 109.1 Result Comment: IG% - Immature Granulocytes (promyelocytes, myelocytes andmetamyelocytes) > 1% indicates that a LEFT SHIFT is Present. Performed By: #### L 100.0100 ####[facility] [address] [place], [address] Lymphocytes/100 WBC (Bld) 24.5 % Normal 19-41 [facility] Comment on above: Order Comment: 109.1 Performed By: #### L 100.0100 ####[facility] [address] [place], [address] MCH (RBC) [Entitic mass] 30.2 pg Normal 27.0-32.0 [facility] Comment on above: Order Comment: 109.1 Performed By: #### L 100.0100 ####[facility] [address] [place], [address] MCHC (RBC) [Mass/Vol] 33.3 g/dL Normal 32-36 [facility] Comment on above: Order Comment: 109.1 Performed By: #### L 100.0100 ####[facility] [address] [place], [address] MCV (RBC) [Entitic vol] 90.7 fL Normal 80-94 [facility] Comment on above: Order Comment: 109.1 Performed By: #### L 100.0100 ####[facility] [address] [place], [address] Monocytes/100 WBC (Bld) 8.2 % Normal 0-10 [facility] Comment on above: Order Comment: 109.1 Performed By: #### L 100.0100 ####[facility] [address] [place], [address] Neutrophils/100 WBC (Bld) 65.6 % Normal 47-70 [facility] Comment on above: Order Comment: 109.1 Performed By: #### L 100.0100 ####[facility] [address] [place], [address] Nucleated RBC (Bld) [#/Vol] 0 10*3/uL Normal 0-5 [facility] Comment on above: Order Comment: 109.1 Performed By: #### L 100.0100 ####[facility] [address] [place], [address] Platelet mean volume (Bld) [Entitic vol] 11.0 fL Normal 6.2-12.0 [facility] Comment on above: Order Comment: 109.1 Performed By: #### L 100.0100 ####[facility] [address] [place], [address] Platelets (Bld) [#/Vol] 216 10*3/uL Normal 150-450 [facility] Comment on above: Order Comment: 109.1 Performed By: #### L 100.0100 ####[facility] [address] [place], [address] RBC (Bld) [#/Vol] 4.64 10*6/uL Normal 4.6-6.2 [facility] Comment on above: Order Comment: 109.1 Performed By: #### L 100.0100 ####[facility] [address] [place], [address] RDW SD 41.9 fl Normal 35.1-43.9 [facility] Comment on above: Order Comment: 109.1 Performed By: #### L 100.0100 ####[facility] [address] [place], [address] WBC (Bld) [#/Vol] 8.1 10*3/uL Normal 4.4-11.0 [facility] Comment on above: Order Comment: 109.1 Performed By: #### L 100.0100 ####[facility] [address] [place], [address] Progress Noteon 11-22-2023 Progress Note Speech-Language Pathology SPEECH LANGUAGE PATHOLOGY [facility]'s Modified Barium Swallow Study [...] despite effort. 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 Frequency: Per treating PEELED POTATO INSPECTOR Barriers: large osteophytes, bridging with anterior projection [...] Prior MBSS?: No, unable to locate in [facility] Current Diet: Puree diet with ?liquid (no information from [place]) Textures tested: - thin liquid, (cup edge) - mildly thick liquid, (cup edge) - puree, (teaspoon) Patient position: lateral Past Medical History: Past Medical History: Diagnosis Date TREVER (acute kidney injury) ([facility]) ([facility]) Alcohol abuse 07/08/2018 Anxiety C1 spinal cord injury ([facility]) ([facility]) Depression Fall 06/2018 Schizophrenia ([facility]) Past Surgical History: Past Surgical History: Procedure Laterality Date CERVICAL FUSION 07/09/2014 C2-6 cervical fusion GASTROSTOMY TUBE PLACEMENT 07/13/2018 TRACHEOSTOMY 07/13/2018 Admission Diagnosis: Patient Active Problem List Diagnosis Date Noted Respiratory syncytial virus (RSV) 03/22/2021 Hypoxia 03/19/2021 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[facility]) ([facility]) 08/16/2018 Chronic latent schizophrenia ([facility]) 08/15/2018 Prolonged Q-T interval on ECG 08/15/2018 Abdominal wall abscess 08/15/2018 Central cord syndrome ([facility]) ([facility]) 08/15/2018 Respiratory failure after trauma ([facility]) 08/15/2018 Pressure ulcer of sacral region, stage 2 ([facility]) 08/09/2018 Urinary retention 07/28/2018 Acute respiratory failure with hypoxia ([facility]) 07/26/2018 Mild bibasilar atelectasis 07/26/2018 Hospital-acquired pneumonia 07/26/2018 Bilateral pleural effusion 07/26/2018 Ileus ([facility]) ([facility]) 07/23/2018 TREVER (acute kidney injury) ([facility]) 07/23/2018 Hypokalemia 07/21/2018 Vertebral artery occlusion, bilateral 07/11/2018 Vitamin D insufficiency 07/10/2018 Alcohol abuse 07/08/2018 Closed wedge compression fracture of first thoracic vertebra ([facility]) 07/08/2018 Traumatic nondisp spondylolisthesis of C3 vertebra with closed fx, initial encounter ([facility]) 07/08/2018 Closed fracture dislocation of cervical spine ([facility]) 07/08/2018 Pain: Pt denies any current pain. Reason for current admission: Pt with h/o of PEG and trach from 2019. Pt is currently decannulated. 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 Noted very large connective [...] posterior spill (more content not included)... Normal [facility] RF videography Hypopharynx a nd Esophagus Views for swallowing function W speech and W barium contrast Rosalino 11-22-2023 Abnormal findings as described above. Please refer to the speech pathologist 's report for additional details and recommendations. Report Dictated on Electronically Signed By: Nir Cancino MD Electronically Signed Date/Time: 11/22/2023 1:57 PM T [facility] [employer] Patient Name: KATHYA HOOPER : 1955 [...] not visualized in this exam for evaluation. [facility] Nir Cancino MD - 11/22/2023 [facility] Name: [facility] : 1955 [id number] Exam Date/Time: 11/22/2023 12:53 Procedure: FL MODIFIED [...] Date/Time: 11/22/2023 1:57 PM EDT [facility] Radiology Study observation (narrative) [facility] RF videography Hypopharynx a nd Esophagus Views for swallowing function W speech and W barium contrast POOrdered By: Nir Cancino on 11-22-2023 [facility] [employer] Work Phone: CBC W Auto Differential pane l (Bld)on 10-02-2023 Basophils (Bld) [#/Vol] 0.0 10*3/uL 0.0 - 0.2 10*3/uL [facility] [employer] Basophils/100 WBC (Bld) 0.3 % 0.0 - 2.0 % [facility] [employer] Eosinophils (Bld) [#/Vol] 0.0 10*3/uL 0.0 - 0.5 10*3/uL [facility] [employer] Eosinophils/100 WBC (Bld) 0.0 % 0.0 - 6.0 % [facility] [employer] Erythrocyte distribution width (RBC) [Ratio] 13.0 % 11.5 - 15.0 % [facility] [employer] Hematocrit (Bld) [Volume fraction] 37.8 % Low 40.0 - 52.0 % [facility] Hemoglobin (Bld) [Mass/Vol] 13.0 g/dL 13.0 - 18.0 g/dL [facility] [employer] Immature granulocytes (Bld) [#/Vol] 0.1 10*3/uL High NINF - 0.1 10*3/uL [facility] [employer] Immature granulocytes/100 WBC (Bld) 0.5 % 0.0 - 2.0 % [facility] [employer] Interpretation and review of laboratory results Abnormal [facility] [employer] Lymphocytes (Bld) [#/Vol] 0.9 10*3/uL Low 1.0 - 4.3 10*3/uL [facility] [employer] Lymphocytes/100 WBC (Bld) 8.4 % Low 15.0 - 45.0 % [facility] [employer] MCH (RBC) [Entitic mass] 30.3 pg 26.0 - 34.0 pg [facility] [employer] MCHC (RBC) [Mass/Vol] 34.4 % 30.5 - 36.0 % [facility] MCV (RBC) [Entitic vol] 88.1 fL 77.0 - 99.0 fL [facility] Monocytes (Bld) [#/Vol] 0.9 10*3/uL 0.0 - 0.9 10*3/uL [facility] Monocytes/100 WBC (Bld) 8.2 % 5.0 - 13.0 % [facility] Neutrophils (Bld) [#/Vol] 8.9 10*3/uL High 1.8 - 7.5 10*3/uL [facility] Neutrophils/100 WBC (Bld) 82.6 % High 38.0 - 82.0 % [facility] Nucleated RBC/100 WBC (Bld) [Ratio] 0.0 % [facility] Platelet mean volume (Bld) [Entitic vol] 10.7 fL 9.0 - 12.7 fL [facility] Platelets (Bld) [#/Vol] 148 10*3/uL 140 - 440 10*3/uL [facility] RBC (Bld) [#/Vol] 4.29 10*6/uL Low 4.40 - 5.9 0 10*6/uL [facility] WBC (Bld) [#/Vol] 10.7 10*3/uL 3.6 - 10.7 10*3/uL [facility] CBC WITH AUTO DIFFERENTIALon 10-02-2023 Basophils (Bld) [#/Vol] 0.0 10*3/uL Normal 0.0-0.2 [facility] Comment on above: Performed By: #### L [id number] #### [employer] Operator: CYNDI LILLY ([id number]) [facility] ([facility]) [address] Basophils/100 WBC (Bld) 0.3 % Normal 0.0-2.0 [facility] Comment on above: Performed By: #### L [id number] #### [employer] Operator: CYNDI LILLY ([id number]) [facility] ([facility]) [address] Eosinophils (Bld) [#/Vol] 0.0 10*3/uL Normal 0.0-0.5 [facility] Comment on above: Performed By: #### L [id number] #### [employer] Operator: CYNDI LILLY ([id number]) [facility] ([facility]) [address] Eosinophils/100 WBC (Bld) 0.0 % Normal 0.0-6.0 [facility] Comment on above: Performed By: #### L [id number] #### [employer] Operator: CYNDI LILLY ([id number]) [facility] ([facility]) [address] Erythrocyte distribution width (RBC) [Ratio] 13.0 % Normal 11.5-15.0 [facility] Comment on above: Performed By: #### L [id number] #### [employer] Operator: CYNDI LILLY ([id number]) [facility] ([facility]) [address] [place] [address] Hematocrit (Bld) [Volume fraction] 37.8 % Low 40.0-52.0 [facility] Comment on above: Performed By: #### L [id number] #### [employer] Operator: CYNDI LILLY ([id number]) [facility] ([facility]) [address] [place] [address] Hemoglobin (Bld) [Mass/Vol] 13.0 g/dL Normal 13.0-18.0 [facility] Comment on above: Performed By: #### L [id number] #### [employer] Operator: CYNDI LILLY ([id number]) [facility] ([facility]) [address] IMMATURE GRANS % 0.5 % Normal 0.0-2.0 [facility] Comment on above: Performed By: #### L [id number] #### [employer] Operator: CYNDI LILLY ([id number]) [facility] ([facility]) [address] IMMATURE GRANS ABSOLUTE 0.1 10*3/uL High <0.1 [facility] Comment on above: Performed By: #### L [id number] #### [employer] Operator: CYNDI SMITHJoesphRADHA ([id number]) [facility] ([facility]) [address] Lymphocytes (Bld) [#/Vol] 0.9 10*3/uL Low 1.0-4.3 [facility] Comment on above: Performed By: #### L [id number] #### [employer] Operator: CYNDI DRIVERRADHA ([id number]) [facility] ([facility]) [address] Lymphocytes/100 WBC (Bld) 8.4 % Low 15.0-45.0 [facility] Comment on above: Performed By: #### L [id number] #### [employer] Operator: CYNDI SMITHJoesphRADHA ([id number]) [facility] ([facility]) [address] MCH (RBC) [Entitic mass] 30.3 pg Normal 26.0-34.0 [facility] Comment on above: Performed By: #### L [id number] #### [employer] Operator: CYNDI DRIVERRADHA ([id number]) [facility] [address] MCHC 34.4 % Normal 30.5-36.0 [facility] Comment on above: Performed By: #### L [id number] #### [employer] Operator: CYNDI LILLY ([phone]) [facility] ([facility]) [address] MCV (RBC) [Entitic vol] 88.1 fL Normal 77.0-99.0 [facility] Comment on above: Performed By: #### L [id number] #### [employer] Operator: CYNDI LILLY ([id number]) [facility] ([facility]) [address] Monocytes (Bld) [#/Vol] 0.9 10*3/uL Normal 0.0-0.9 [facility] Comment on above: Performed By: #### L [id number] #### [employer] Operator: CYNDI LILLY ([id number]) [facility] ([facility]) [address] Monocytes/100 WBC (Bld) 8.2 % Normal 5.0-13.0 [facility] Comment on above: Performed By: #### L [id number] #### [employer] Operator: CYNDI LILLY ([id number]) [facility] [address] NEUTROPHILS ABSOLUTE 8.9 10*3/uL High 1.8-7.5 [facility] Comment on above: Performed By: #### L [id number] #### [employer] Operator: CYNDI LILLY ([id number]) [facility] [address] Neutrophils/100 WBC (Bld) 82.6 % High 38.0-82.0 [facility] Comment on above: Performed By: #### L [id number] #### [employer] Operator: CYNDI LILLY ([id number]) [facility] [address] NRBC 0.0 /100 WBCs Normal 0.0-2.0 [facility] Comment on above: Performed By: #### L [id number] #### [employer] Operator: CYNDI LILLY ([id number]) [facility] [address] Platelet mean volume (Bld) [Entitic vol] 10.7 fL Normal 9.0-12.7 [facility] Comment on above: Performed By: #### L [id number] #### [employer] Operator: CYNDI LILLY ([id number]) [facility] [address] [place] [address] [place] Platelets (Bld) [#/Vol] 148 10*3/uL Normal 140-440 [facility] Comment on above: Performed By: #### L [id number] #### [employer] Operator: CYNDI LILLY ([id number]) [facility] [address] RBC (Bld) [#/Vol] 4.29 10*6/uL Low 4.40-5.90 [facility] Comment on above: Performed By: #### L [id number] #### [employer] Operator: CYNDI LILLY ([id number]) [facility] [address] WBC (Bld) [#/Vol] 10.7 10*3/uL Normal 3.6-10.7 [facility] Comment on above: Performed By: #### L [id number] #### [employer] Operator: CYNDI LILLY ([id number]) [facility] ([facility]) [address] COMPREHENSIVE METABOLIC PANE Reji 10-02-2023 Albumin [Mass/Vol] 3.7 g/dL Normal 3.5-5.0 [facility] Comment on above: Performed By: #### L AB17, [id number] ####[employer] Operator: CYNDI LILLY ([id number])[facility] ([facility])[address] ALP [Catalytic activity/Vol] 78 U/L Normal 38-126 [facility] Comment on above: Performed By: #### L AB17, [id number] ####[employer] Operator: CYNDI LILLY ([id number])[facility] ([facility])[address] ALT [Catalytic activity/Vol] 21 U/L Normal 0-49 [facility] Comment on above: Performed By: #### L AB17, [id number] ####[employer] Operator: CYNDI LILLY ([id number])[facility] ([facility])[address] Anion gap [Moles/Vol] 10 mmol/L Normal 3-13 [facility] Comment on above: Performed By: #### L AB17, [id number] ####[employer] Operator: CYNDI LILLY ([id number])[facility])[address] AST [Catalytic activity/Vol] 29 U/L Normal 15-46 [facility] Comment on above: Performed By: #### Alban AB17, [id number] ####[employer] Operator: CYNDI LILLY ([id number])[facility])[address] Bilirubin [Mass/Vol] 1.1 mg/dL Normal 0.2-1.3 [facility] Comment on above: Performed By: #### Alban YEH17, [id number] ####[employer] Operator: CYNDI LILLY ([id number])[facility] ([facility])[address] Calcium [Mass/Vol] 7.8 mg/dL Low 8.4-10.4 [facility] Comment on above: Performed By: #### Alban SMITH, [id number] ####[employer] Operator: CYNDI LILLY ([id number])[facility] ([facility])[address] Chloride [Moles/Vol] 102 mmol/L Normal 98-107 [facility] Comment on above: Performed By: #### L AB17, [id number] ####[employer] Operator: CYNDI LILLY ([id number])[facility])[address] [place] [address] [place] CO2 [Moles/Vol] 23 mmol/L Normal 22-30 [facility] Comment on above: Performed By: #### L AB17, [id number] ####[employer] Operator: CYNDI LILLY ([id number])[facility] ([facility])[address] Creatinine [Mass/Vol] 0.58 mg/dL Low 0.66-1.25 [facility] Comment on above: Performed By: #### L AB17, [id number] ####[employer] Operator: CYNDI LILLY ([id number])[facility] ([facility])[address] GLOMERULAR FILTRATION RATE ML/MIN/1.73 SQ M.PREDICTED >90.0 Normal >60.0 [facility] Comment on above: Result Comment: Calc ulation based on the Chronic Kidney Disease Epidemiology Collaboration (CKD-EPI) equation refit without adjustment for race Performed By: #### L AB17, [id number] ####[employer] Operator: CYNDI LILLY ([id number])[facility] Glucose [Mass/Vol] 111 mg/dL High 70-100 [facility] Comment on above: Performed By: #### L AB17, [id number] ####[employer] Operator: CYNDI LILLY ([id number])[facility] ([facility])[address] Potassium [Moles/Vol] 4.0 mmol/L Normal 3.5-5.1 [facility] Comment on above: Performed By: #### Alban AB17, [id number] ####[employer] Operator: CYNDI LILLY ([id number])[facility] ([facility])[address] Protein [Mass/Vol] 6.5 g/dL Normal 6.3-8.2 [facility] Comment on above: Performed By: #### L AB17, [id number] ####[employer] Operator: CYNDI LILLY ([id number])[facility] ([facility])[address] [place] [address] [place] Sodium [Moles/Vol] 135 mmol/L Normal 135-145 [facility] Comment on above: Performed By: #### L AB17, [id number] ####[employer] Operator: CYNDI LILLY ([id number])[facility] ([facility])[address] Urea nitrogen [Mass/Vol] 18 mg/dL Normal 9-20 [facility] Comment on above: Performed By: #### L [id number], [id number] ####Beam Press Operator: CYNDI LILLY ([id number])ERICKA GREEN (SBHLAB)[address] HEAD WO IV CONTRASTon CT HEAD WO IV CONTRAST Patient Name: KATHYA YU : 1955 Exam Date/Time: 10/02/2023 11:03 Procedure: CT HEAD WO IV CONTRAST Ordering Provider: TOLEDO AMY Reason For Exam: Neuro deficit, acute, stroke suspected EXAMINATION: CT HEAD WO IV CONTRAST HISTORY: Neuro deficit, acute, stroke suspected - - - - - [id number] - - - - TECHNIQUE: CT head [...] she has seen him for that day, beam worker did not report any problems. EMS states [...] has no complaints at this time. Normal [facility] CT Head WO contraston [address] evidence of an acute intracranial abnormality. Report Dictated on Electronically Signed By: Maria Eugenia Ruiz MD Electronically Signed Date/Time: 10/02/2023 11:09 AM [facility] Patient Name: KATHYA HOOPER : 1955 Exam Date/Time: 10/02/2023 11:03 Procedure: CT HEAD WO IV CONTRAST Ordering Provider: TOLEDO AMY Reason For Exam: Neuro deficit, acute, stroke suspected EXAMINATION: CT HEAD WO IV CONTRAST HISTORY: Neuro deficit, acute, stroke suspected - - - - - [id number] - - - - TECHNIQUE: CT head [...] air cells and the left sphenoid sinus [facility] Maria Eugenia Ruiz MD - 10/02/2023 Patient Name: KATHYA HOOPER : 1955 Exam Date/Time: 10/02/2023 11:03 Procedure: CT HEAD WO IV CONTRAST Ordering Provider: TOLEDO AMY Reason For Exam: Neuro deficit, acute, stroke suspected EXAMINATION: CT HEAD WO IV CONTRAST HISTORY: Neuro deficit, acute, stroke suspected - - - - - [id number] - - - - TECHNIQUE: CT head [...] EDT [facility] Radiology Study observation (narrative) [facility] CT Head WO contrastOrdered B y: Maria Eugenia Ruiz on 10-02-2023 [facility] Work Phone: Comprehensive metabolic 1998 panelon 10-02-2023 Albumin [Mass/Vol] 3.7 g/dL 3.5 - 5.0 g/dL [facility] [employer] ALP [Catalytic activity/Vol] 78 U/L 38 - 126 U/L [facility] ALT [Catalytic activity/Vol] 21 U/L 0 - 49 U/L [facility] Anion gap [Moles/Vol] 10 mmol/L 3 - 13 mmol/L [facility] AST [Catalytic activity/Vol] 29 U/L 15 - 46 U/L [facility] Bilirubin [Mass/Vol] 1.1 mg/dL 0.2 - 1 .3 mg/dL [facility] Calcium [Mass/Vol] 7.8 mg/dL Low 8.4 - 10. 4 mg/dL [facility] Chloride [Moles/Vol] 102 mmol/L 98 - 10 7 mmol/L [facility] CO2 [Moles/Vol] 23 mmol/L 22 - 30 mmol/L [facility] Creatinine [Mass/Vol] 0.58 mg/dL Low 0.66 - 1.25 mg/dL [facility] GFR/1.73 sq M.predicted MDRD (S/P/Bld) [Vol rate/Area] - PINF [facility] Comment on above: Calculation based on the Chronic Kidney Disease Epidemiology Collaboration (CKD-EPI) equation refit without adjustment for race Glucose [Mass/Vol] 111 mg/dL High 70 - 100 mg/dL [facility] Interpretation and review of laboratory results Abnormal [facility] Potassium [Moles/Vol] 4.0 mmol/L 3.5 - 5.1 mmol/L [facility] Protein [Mass/Vol] 6.5 g/dL 6.3 - 8.2 g/dL [facility] Sodium [Moles/Vol] 135 mmol/L 135 - 145 mmol/L [facility] Urea nitrogen [Mass/Vol] 18 mg/dL 9 - 20 mg/dL [facility] ECG 12-LEADon 10-02-2023 ECG 12-LEAD IMPRESSION: Sinus tachycardia Left bundle branch block ST elevation secondary to IVCD Electronically Signed On 10-02-2023 12:40:15 EDT by Fei Farooq Normal [facility] ED Nursing Noteon 10-02-2023 ED Nursing Note [facility] at bedside at this time Mami Lantigua RN 10/02/23 1427 [facility] ED Nursing Note This RN gave report to Marnie at [facility] at this time Mami Lantigua RN 10/02/23 1358 Normal [facility] ED Nursing Note This RN went to evaluate patient, was on 2L o2 and does not wear at baseline, plan is dc, this RN turned o2 off to trial patient, spo2 monitor on Mami Lantigua RN 10/02/23 1325 Normal [facility] ED Nursing Note Pt to ct via cart Eloisa Alfaro RN 10/02/23 1043 [facility] ED Nursing Note Pt was brought in [facility] from [facility] for Left sided facial droop. Per EMS nurse is new and does not know patient very well but he is A&O x 2 at baseline. Per EMS the nurse states it was 20 mins ago. Contacted nurse that was caring for him and she states that was the first time she has seen him for that day, beam worker did not report any problems. EMS states [...] facility. Hx of schizophrenia. BS 131. Normal [facility] ED Provider Noteon ED Provider Note [facility] ED eMERGENCY dEPARTMENT eNCOUnter Pt Name: Kathya [...] to the emergency department from a local [facility] facility where he is currently a resident. [...] History: Diagnosis Date TREVER (acute kidney injury) ([facility]) ([facility]) Alcohol abuse 07/08/2018 Anxiety C1 spinal cord injury ([facility]) ([facility]) Depression Fall 06/2018 Schizophrenia ([facility]) SURGICALHISTORY Past Surgical History: Procedure [...] EmergencyPhysician): Interpret (more content not included)... Normal [facility] ED Provider Note Emergency Department Encounter [facility] ED Patient: Kathya Hooper : 1955 Date [...] Solutions Fei Farooq MD 10/02/23 1129 Normal [facility] Laboratory - Chemistry and C hemistry - challengeon 10-02-2023 Troponin I.cardiac [Mass/Vol] ng/mL NINF - 0.034 ng/mL [facility] Laboratory - Coagulationon 0 10-02-2023 aPTT Coag (PPP) [Time] 29.6 s 20.0 - 30.5 s [facility] INR Coag (PPP) [Relative time] 1.1 {INR} 0.9 - 1.1 [facility] Comment on above: Recommended Anticoag ulant [...] [Time] 11.6 s 9.0 - 12.0 s [facility] No Panel Informationon 10-01 Heart Rate 103 bpm [facility] P [place] 48 degrees [facility] [place] Interval 172 ms [facility] QRS [place] -38 degrees [facility] QRSD Interval 159 ms [facility] QT Interval 405 ms [facility] QTC Interval 532 ms [facility] T Wave [place] 109 degrees [facility] Sinus tachycardia Left bundle branch block ST elevation secondary to IVCD Electronically Signed On 10-02-2023 12:40:15 EDT by Fei Farooq CV Fei Lopez MD - 10/02/2023 IMPRESSION: Sinus tachycardia Left bundle branch block ST elevation secondary to IVCD Electronically Signed On 10-02-2023 12:40:15 EDT by Fei Farooq [facility] Interpretation and review of laboratory results Normal [facility] PROTIME AND APTTon aPTT Coag (Bld) [Time] 29.6 s Normal 20.0-30.5 [facility] Comment on above: Performed By: #### L [id number] ####Beam Press Operator: CYNDI LILLY ([id number])[facility] ([facility])[address] [place] [address] INR Coag (PPP) [Relative time] 1.1 {INR} Normal 0.9-1.1 [facility] Comment [...] prevent Myocardial Infarction Performed By: #### L [id number] ####Beam Press Operator: CYNDI LILLY ([id number])[facility])[address] [place] [address] PT Coag (PPP) [Time] 11.6 s Normal 9.0-12.0 [facility] Comment on above: Performed By: #### L [id number] ####Beam Press Operator: CYNDI LILLY ([id number])[facility] ([facility])[address] TROPONIN, WITH SERIAL REFLEX on 10-02-2023 Troponin I.cardiac [Mass/Vol] ng/mL Normal <0.034 [facility] Comment on above: Result Comment: SHARON R COMMENTS: Patients with high levels of Biotin oral intake (ie >5 mg/day) may have falsely decreased Troponin levels. Performed By: #### L [id number], [id number] ####Beam Press Operator: CYNDI LILLY ([id number])[facility] ([facility])[address] [place] [address] Troponin I.cardiac [Mass/Vol ]on 10-02-2023 Interpretation and review of laboratory results Normal [facility] Patients with high levels of Biotin oral intake (ie >5 mg/day) may have falsely decreased Troponin levels. [facility] XR Chest Single viewon 10-01 No acute cardiopulmonary disease. Report Dictated on Electronically Signed By: Maria Eugenia Ruiz MD Electronically Signed Date/Time: 10/02/2023 11:06 AM EDT [facility] Patient Name: KATHYA HOOPER : 1955 [facility]#: [id number] Exam Date/Time: 10/02/2023 11:11 Procedure: XR CHEST 1 VIEW Ordering Provider: TOLEDO AMY Reason For Exam: DYSPNEA AP CHEST X-RAY CLINICAL INDICATION: DYSPNEA TECHNIQUE: AP portable x-ray of the chest. COMPARISON: March 19, 2021 FINDINGS: Lines/Tubes: None Heart/Mediastinum: Within normal limits Lungs: Well-inflated and clear. No pneumothorax. Bones: Degenerative changes are seen in the thoracic spine and shoulders. No acute osseous findings. [facility] Maria Eugenia Ruiz MD - 10/02/2023 Patient [...] Electronically Signed Date/Time: 10/02/2023 11:06 AM EDT [facility] Radiology Study observation (narrative) [facility] Absolute lymphocyte countOrd ered By: Renard Burgos on 08-07-2023 Lymphocytes Auto (Unsp spec) [#/Vol] 2.23 10*3/uL 0.83-4.51 [facility] Automated lymphocyte count a s percentage of total leukocytesOrdered By: Renard Burgos on 08-07-2023 Lymphocytes/100 WBC Auto (Unsp spec) 23.9 % 19-41 [facility] Basophil percentageOrdered B y: Renard Burgos on 08-07-2023 Basophils/100 WBC (Bld) 0.4 % 0-1 [facility] Eosinophils/100 WBC (Bld) 0.4 % 0-5 [facility] Hemoglobin (Bld) [Mass/Vol] 13.9 g/dL 13.0-16.5 [facility] Monocytes/100 WBC (Bld) 8.0 % 0-10 [facility] Neutrophils (Bld) [#/Vol] 6.2 10*3/uL 2.0-7.7 [facility] Neutrophils/100 WBC (Bld) 66.9 % 47-70 [facility] WBC (Bld) [#/Vol] 9.3 10*3/uL 4.4-11.0 [facility] Determination of erythrocyte mean corpuscular volume (MCV)Ordered By: Renard Burgos on 08-07-2023 MCV (RBC) [Entitic vol] 90.0 fL 80-94 [facility] Erythrocyte distribution wid th ratioOrdered By: Renard Burgos on 08-07-2023 Erythrocyte distribution width (RBC) [Ratio] 13.0 % 11.6-14.6 [facility] Erythrocyte distribution wid th standard deviationOrdered By: Renard Burgos on 08-07-2023 Erythrocyte distribution width (RBC) [Entitic vol] 42.5 fL 35.1-43.9 [facility] Hematocrit Auto (Bld) [Volum e fraction]Ordered By: Renard Burgos on 08-07-2023 Hematocrit (Bld) [Volume fraction] 42.5 % 40-54 [facility] Immature granulocytes/100 WB C Auto (Bld)Ordered By: Renard Burgos on 08-07-2023 Immature granulocytes/100 WBC (Bld) 0.400 % 0.0-0.9 [facility] Comment on above: IG% - Immature Granu locytes (promyelocytes, myelocytes and metamyelocytes) > 1% indicates that a LEFT SHIFT is Present. Laboratory - Hematology and Cell countsOrdered By: Renard Burgos on 08-07-2023 MCH (RBC) [Entitic mass] 29.4 pg 27.0-32.0 [facility] MCHC (RBC) [Mass/Vol] 32.7 g/dL 32-36 [facility] Nucleated RBC/100 WBC (Bld) [Ratio] 0 % 0-5 [facility] Platelet mean volume (Bld) [Entitic vol] 10.7 fL 6.2-12.0 [facility] Platelets (Bld) [#/Vol] 210 10*3/uL 150-450 [facility] RBC Auto (Bld) [#/Vol]Ordere d By: Renard Burgos on 08-07-2023 RBC (Bld) [#/Vol] 4.72 10*6/uL 4.6-6.2 [facility] Absolute lymphocyte countOrd ered By: Renard Burgos on 07-31-2023 Lymphocytes Auto (Unsp spec) [#/Vol] 2.04 10*3/uL 0.83-4.51 [facility] Automated lymphocyte count a s percentage of total leukocytesOrdered By: Renard Burgos on 07-31-2023 Lymphocytes/100 WBC Auto (Unsp spec) 24.2 % 19-41 [facility] Basophil percentageOrdered B y: Renard Burgos on 07-31-2023 Basophils/100 WBC (Bld) 0.6 % 0-1 [facility] Eosinophils/100 WBC (Bld) 0.6 % 0-5 [facility] Hemoglobin (Bld) [Mass/Vol] 13.9 g/dL 13.0-16.5 [facility] Monocytes/100 WBC (Bld) 8.5 % 0-10 [facility] Neutrophils (Bld) [#/Vol] 5.5 10*3/uL 2.0-7.7 [facility] Neutrophils/100 WBC (Bld) 65.7 % 47-70 [facility] WBC (Bld) [#/Vol] 8.4 10*3/uL 4.4-11.0 [facility] Determination of erythrocyte mean corpuscular volume (MCV)Ordered By: Renard Burgos on 07-31-2023 MCV (RBC) [Entitic vol] 89.7 fL 80-94 [facility] Erythrocyte distribution wid th ratioOrdered By: Renard Burgos on 07-31-2023 Erythrocyte distribution width (RBC) [Ratio] 12.8 % 11.6-14.6 [facility] Erythrocyte distribution wid th standard deviationOrdered By: Renard Burgos on 07-31-2023 Erythrocyte distribution width (RBC) [Entitic vol] 42.2 fL 35.1-43.9 [facility] Hematocrit Auto (Bld) [Volum e fraction]Ordered By: Renard Burgos on 07-31-2023 Hematocrit (Bld) [Volume fraction] 41.7 % 40-54 [facility] Immature granulocytes/100 WB C Auto (Bld)Ordered By: Renard Burgos on 07-31-2023 Immature granulocytes/100 WBC (Bld) 0.400 % 0.0-0.9 [facility] Comment on above: IG% - Immature Granu locytes (promyelocytes, myelocytes and metamyelocytes) > 1% indicates that a LEFT SHIFT is Present. Laboratory - Hematology and Cell countsOrdered By: Renard Burgos on 07-31-2023 MCH (RBC) [Entitic mass] 29.9 pg 27.0-32.0 [facility] MCHC (RBC) [Mass/Vol] 33.3 g/dL 32-36 [facility] Nucleated RBC/100 WBC (Bld) [Ratio] 0 % 0-5 [facility] Platelet mean volume (Bld) [Entitic vol] 10.6 fL 6.2-12.0 [facility] Platelets (Bld) [#/Vol] 201 10*3/uL 150-450 [facility] RBC Auto (Bld) [#/Vol]Ordere d By: Renard Burgos on 07-31-2023 RBC (Bld) [#/Vol] 4.65 10*6/uL 4.6-6.2 [facility] Absolute lymphocyte countOrd ered By: Renard Burgos on 07-24-2023 Lymphocytes Auto (Unsp spec) [#/Vol] 2.00 10*3/uL 0.83-4.51 [facility] Automated lymphocyte count a s percentage of total leukocytesOrdered By: Renard Burgos on 07-24-2023 Lymphocytes/100 WBC Auto (Unsp spec) 26.2 % 19-41 [facility] Basophil percentageOrdered B y: Renard Burgos on 07-24-2023 Basophils/100 WBC (Bld) 0.7 % 0-1 [facility] Eosinophils/100 WBC (Bld) 0.7 % 0-5 [facility] Hemoglobin (Bld) [Mass/Vol] 14.2 g/dL 13.0-16.5 [facility] Monocytes/100 WBC (Bld) 6.4 % 0-10 [facility] Neutrophils (Bld) [#/Vol] 5.0 10*3/uL 2.0-7.7 [facility] Neutrophils/100 WBC (Bld) 65.6 % 47-70 [facility] WBC (Bld) [#/Vol] 7.6 10*3/uL 4.4-11.0 [facility] Determination of erythrocyte mean corpuscular volume (MCV)Ordered By: Renard Burgos on 07-24-2023 MCV (RBC) [Entitic vol] 89.8 fL 80-94 [facility] Erythrocyte distribution wid th ratioOrdered By: Renard Burgos on 07-24-2023 Erythrocyte distribution width (RBC) [Ratio] 12.8 % 11.6-14.6 [facility] Erythrocyte distribution wid th standard deviationOrdered By: Renard Burgos on 07-24-2023 Erythrocyte distribution width (RBC) [Entitic vol] 42.0 fL 35.1-43.9 [facility] Hematocrit Auto (Bld) [Volum e fraction]Ordered By: Renard Burgos on 07-24-2023 Hematocrit (Bld) [Volume fraction] 43.3 % 40-54 [facility] Immature granulocytes/100 WB C Auto (Bld)Ordered By: Renard Burgos on 07-24-2023 Immature granulocytes/100 WBC (Bld) 0.400 % 0.0-0.9 [facility] Comment on above: IG% - Immature Granu locytes (promyelocytes, myelocytes and metamyelocytes) > 1% indicates that a LEFT SHIFT is Present. Laboratory - Hematology and Cell countsOrdered By: Renard Burgos on 07-24-2023 MCH (RBC) [Entitic mass] 29.5 pg 27.0-32.0 [facility] MCHC (RBC) [Mass/Vol] 32.8 g/dL 32-36 [facility] Nucleated RBC/100 WBC (Bld) [Ratio] 0 % 0-5 [facility] Platelet mean volume (Bld) [Entitic vol] 11.0 fL 6.2-12.0 [facility] Platelets (Bld) [#/Vol] 215 10*3/uL 150-450 [facility] RBC Auto (Bld) [#/Vol]Ordere d By: Renard Burgos on 07-24-2023 RBC (Bld) [#/Vol] 4.82 10*6/uL 4.6-6.2 [facility] Absolute lymphocyte countOrd ered By: Renard Burgos on 07-17-2023 Lymphocytes Auto (Unsp spec) [#/Vol] 2.22 10*3/uL 0.83-4.51 [facility] Automated lymphocyte count a s percentage of total leukocytesOrdered By: Renard Burgos on 07-17-2023 Lymphocytes/100 WBC Auto (Unsp spec) 25.4 % 19-41 [facility] Basophil percentageOrdered B y: Renard Burgos on 07-17-2023 Basophils/100 WBC (Bld) 0.5 % 0-1 [facility] Cholesterol [Mass/Vol] 126 mg/dL <200 Wo [facility] Comment on above: <200 mg/dL Desirable 200-240 mg/dL Borderline >240 mg/dL High Risk Eosinophils/100 WBC (Bld) 0.6 % 0-5 [facility] Hemoglobin (Bld) [Mass/Vol] 14.0 g/dL 13.0-16.5 [facility] Monocytes/100 WBC (Bld) 6.6 % 0-10 [facility] Neutrophils (Bld) [#/Vol] 5.8 10*3/uL 2.0-7.7 [facility] Neutrophils/100 WBC (Bld) 66.4 % 47-70 [facility] Triglyceride [Mass/Vol] 176 mg/dL <199 [facility] Comment on above: The drugs N-Acetylcy steine and Metamizole may falsely depress this assay.Serum Triglycerides Reference Interval Normal <150 mg/dL Borderline high 150 - 199 mg/dL High 200 - 499 mg/dL Very High > or = 500 mg/dL WBC (Bld) [#/Vol] 8.7 10*3/uL 4.4-11.0 [facility] Determination of erythrocyte mean corpuscular volume (MCV)Ordered By: Renard Burgos on 07-17-2023 MCV (RBC) [Entitic vol] 90.5 fL 80-94 [facility] Erythrocyte distribution wid th ratioOrdered By: Renard Burgos on 07-17-2023 Erythrocyte distribution width (RBC) [Ratio] 12.4 % 11.6-14.6 [facility] Erythrocyte distribution wid th standard deviationOrdered By: Renard Burgos on 07-17-2023 Erythrocyte distribution width (RBC) [Entitic vol] 41.1 fL 35.1-43.9 [facility] Hematocrit Auto (Bld) [Volum e fraction]Ordered By: Renard Burgos on 07-17-2023 Hematocrit (Bld) [Volume fraction] 42.8 % 40-54 [facility] Immature granulocytes/100 WB C Auto (Bld)Ordered By: Renard Burgos on 07-17-2023 Immature granulocytes/100 WBC (Bld) 0.500 % 0.0-0.9 [facility] Comment on above: IG% - Immature Granu locytes (promyelocytes, myelocytes and metamyelocytes) > 1% indicates that a LEFT SHIFT is Present. Laboratory - Chemistry and C hemistry - challengeOrdered By: Renard Burgos on 07-17-2023 Cholesterol in HDL [Mass/Vol] 28 mg/dL >40 [facility] Comment on above: The drugs N-Acetylcy steine and Metamizole may falsely depress this assay. Reference Range HDL <40 mg/dL Low HDL Cholesterol HDL >or= 60 mg/dL High HDL Cholesterol Cholesterol in LDL [Mass/Vol] 63 mg/dL 0-130 [facility] Laboratory - Hematology and Cell countsOrdered By: Renard Burgos on 07-17-2023 MCH (RBC) [Entitic mass] 29.6 pg 27.0-32.0 [facility] MCHC (RBC) [Mass/Vol] 32.7 g/dL 32-36 [facility] Nucleated RBC/100 WBC (Bld) [Ratio] 0 % 0-5 [facility] Platelet mean volume (Bld) [Entitic vol] 10.9 fL 6.2-12.0 [facility] Platelets (Bld) [#/Vol] 193 10*3/uL 150-450 [facility] No Panel InformationOrdered By: Renard Burgos on 07-17-2023 Vitamin D 25-Hydroxy 33.1 ng/mL [facility] Comment on above: Vitamin D 25(OH) Sta tus Range Deficiency <20 ng/mL (50nmol/L) Insufficiency 20 - 30 ng/mL (50 - 75 nmol/L) Sufficiency 30 - 100 ng/mL (75 - 250 nmol/L) Toxicity >100 ng/mL (>250 nmol/L) VLDL Cholesterol 35 mg/dL 5-40 [facility] RBC Auto (Bld) [#/Vol]Ordere d By: Renard Burgos on 07-17-2023 RBC (Bld) [#/Vol] 4.73 10*6/uL 4.6-6.2 [facility] Absolute lymphocyte countOrd ered By: Renard Burgos on 07-10-2023 Lymphocytes Auto (Unsp spec) [#/Vol] 2.14 10*3/uL 0.83-4.51 [facility] Automated lymphocyte count a s percentage of total leukocytesOrdered By: Renard Burgos on 07-10-2023 Lymphocytes/100 WBC Auto (Unsp spec) 24.7 % 19-41 [facility] Basophil percentageOrdered B y: Renard Burgos on 07-10-2023 Basophils/100 WBC (Bld) 0.3 % 0-1 [facility] Eosinophils/100 WBC (Bld) 0.3 % 0-5 [facility] Hemoglobin (Bld) [Mass/Vol] 13.8 g/dL 13.0-16.5 [facility] Monocytes/100 WBC (Bld) 7.8 % 0-10 [facility] Neutrophils (Bld) [#/Vol] 5.8 10*3/uL 2.0-7.7 [facility] Neutrophils/100 WBC (Bld) 66.4 % 47-70 [facility] WBC (Bld) [#/Vol] 8.7 10*3/uL 4.4-11.0 [facility] Determination of erythrocyte mean corpuscular volume (MCV)Ordered By: Renard Burgos on 07-10-2023 MCV (RBC) [Entitic vol] 88.9 fL 80-94 [facility] Erythrocyte distribution wid th ratioOrdered By: Renard Burgos on 07-10-2023 Erythrocyte distribution width (RBC) [Ratio] 12.6 % 11.6-14.6 [facility] Erythrocyte distribution wid th standard deviationOrdered By: Renard Burgos on 07-10-2023 Erythrocyte distribution width (RBC) [Entitic vol] 40.6 fL 35.1-43.9 [facility] Hematocrit Auto (Bld) [Volum e fraction]Ordered By: Renard Burgos on 07-10-2023 Hematocrit (Bld) [Volume fraction] 41.0 % 40-54 [facility] Immature granulocytes/100 WB C Auto (Bld)Ordered By: Renard Burgos on 07-10-2023 Immature granulocytes/100 WBC (Bld) 0.500 % 0.0-0.9 [facility] Comment on above: IG% - Immature Granu locytes (promyelocytes, myelocytes and metamyelocytes) > 1% indicates that a LEFT SHIFT is Present. Laboratory - Hematology and Cell countsOrdered By: Renard Burgos on 07-10-2023 MCH (RBC) [Entitic mass] 29.9 pg 27.0-32.0 [facility] MCHC (RBC) [Mass/Vol] 33.7 g/dL 32-36 [facility] Nucleated RBC/100 WBC (Bld) [Ratio] 0 % 0-5 [facility] Platelet mean volume (Bld) [Entitic vol] 11.0 fL 6.2-12.0 [facility] Platelets (Bld) [#/Vol] 215 10*3/uL 150-450 [facility] RBC Auto (Bld) [#/Vol]Ordere d By: Renard Burgos on 07-10-2023 RBC (Bld) [#/Vol] 4.61 10*6/uL 4.6-6.2 [facility] Absolute lymphocyte countOrd ered By: Renard Burgos on 07-03-2023 Lymphocytes Auto (Unsp spec) [#/Vol] 1.84 10*3/uL 0.83-4.51 [facility] Automated lymphocyte count a s percentage of total leukocytesOrdered By: Renard Burgos on 07-03-2023 Lymphocytes/100 WBC Auto (Unsp spec) 16.9 % 19-41 [facility] Basophil percentageOrdered B y: Renard Burgos on 07-03-2023 Basophil percentage 3.17 ng/mL 0.0-4.0 [facility] Comment on above: This test was perfor med using the TPSA assay method for theDimension chemistry system. Values obtained with differentassay methods cannot be used interchangably.When changing PSA assays in the course of monitoring apatient, additional sequential testing should be carriedout to confirm baseline values. Basophils/100 WBC (Bld) 0.5 % 0-1 [facility] Eosinophils/100 WBC (Bld) 0.4 % 0-5 [facility] Hemoglobin (Bld) [Mass/Vol] 13.2 g/dL 13.0-16.5 [facility] Monocytes/100 WBC (Bld) 7.4 % 0-10 [facility] Neutrophils (Bld) [#/Vol] 8.1 10*3/uL 2.0-7.7 [facility] Neutrophils/100 WBC (Bld) 74.4 % 47-70 [facility] WBC (Bld) [#/Vol] 10.9 10*3/uL 4.4-11.0 [facility] Determination of erythrocyte mean corpuscular volume (MCV)Ordered By: Renard Burgos on 07-03-2023 MCV (RBC) [Entitic vol] 89.8 fL 80-94 [facility] Erythrocyte distribution wid th ratioOrdered By: Renard Burgos on 07-03-2023 Erythrocyte distribution width (RBC) [Ratio] 12.7 % 11.6-14.6 [facility] Erythrocyte distribution wid th standard deviationOrdered By: Renard Burgos on 07-03-2023 Erythrocyte distribution width (RBC) [Entitic vol] 41.9 fL 35.1-43.9 [facility] Hematocrit Auto (Bld) [Volum e fraction]Ordered By: Renard Burgos on 07-03-2023 Hematocrit (Bld) [Volume fraction] 40.3 % 40-54 [facility] Immature granulocytes/100 WB C Auto (Bld)Ordered By: Renard Burgos on 07-03-2023 Immature granulocytes/100 WBC (Bld) 0.400 % 0.0-0.9 [facility] Comment on above: IG% - Immature Granu locytes (promyelocytes, myelocytes and metamyelocytes) > 1% indicates that a LEFT SHIFT is Present. Laboratory - Hematology and Cell countsOrdered By: Renard Burgos on 07-03-2023 MCH (RBC) [Entitic mass] 29.4 pg 27.0-32.0 [facility] MCHC (RBC) [Mass/Vol] 32.8 g/dL 32-36 [facility] Nucleated RBC/100 WBC (Bld) [Ratio] 0 % 0-5 [facility] Platelet mean volume (Bld) [Entitic vol] 11.2 fL 6.2-12.0 [facility] Platelets (Bld) [#/Vol] 191 10*3/uL 150-450 [facility] RBC Auto (Bld) [#/Vol]Ordere d By: Renard Burgos on 07-03-2023 RBC (Bld) [#/Vol] 4.49 10*6/uL 4.6-6.2 [facility] Absolute lymphocyte countOrd ered By: Renard Burgos on 06-26-2023 Lymphocytes Auto (Unsp spec) [#/Vol] 2.23 10*3/uL 0.83-4.51 [facility] Automated lymphocyte count a s percentage of total leukocytesOrdered By: Renard Burgos on 06-26-2023 Lymphocytes/100 WBC Auto (Unsp spec) 27.3 % 19-41 [facility] Basophil percentageOrdered B y: Renard Burgos on 06-26-2023 Basophils/100 WBC (Bld) 0.5 % 0-1 [facility] Eosinophils/100 WBC (Bld) 0.7 % 0-5 [facility] Hemoglobin (Bld) [Mass/Vol] 13.7 g/dL 13.0-16.5 [facility] Monocytes/100 WBC (Bld) 9.5 % 0-10 [facility] Neutrophils (Bld) [#/Vol] 5.1 10*3/uL 2.0-7.7 [facility] Neutrophils/100 WBC (Bld) 61.8 % 47-70 [facility] WBC (Bld) [#/Vol] 8.2 10*3/uL 4.4-11.0 [facility] Determination of erythrocyte mean corpuscular volume (MCV)Ordered By: Renard Burgos on 06-26-2023 MCV (RBC) [Entitic vol] 92.2 fL 80-94 [facility] Erythrocyte distribution wid th ratioOrdered By: Renard Burgos on 06-26-2023 Erythrocyte distribution width (RBC) [Ratio] 12.7 % 11.6-14.6 [facility] Erythrocyte distribution wid th standard deviationOrdered By: Renard Burgos on 06-26-2023 Erythrocyte distribution width (RBC) [Entitic vol] 42.8 fL 35.1-43.9 [facility] Hematocrit Auto (Bld) [Volum e fraction]Ordered By: Renard Burgos on 06-26-2023 Hematocrit (Bld) [Volume fraction] 42.6 % 40-54 [facility] Immature granulocytes/100 WB C Auto (Bld)Ordered By: Renard Burgos on 06-26-2023 Immature granulocytes/100 WBC (Bld) 0.200 % 0.0-0.9 [facility] Comment on above: IG% - Immature Granu locytes (promyelocytes, myelocytes and metamyelocytes) > 1% indicates that a LEFT SHIFT is Present. Laboratory - Hematology and Cell countsOrdered By: Renard Burgos on 06-26-2023 MCH (RBC) [Entitic mass] 29.7 pg 27.0-32.0 [facility] MCHC (RBC) [Mass/Vol] 32.2 g/dL 32-36 [facility] Nucleated RBC/100 WBC (Bld) [Ratio] 0 % 0-5 [facility] Platelet mean volume (Bld) [Entitic vol] 11.0 fL 6.2-12.0 [facility] Platelets (Bld) [#/Vol] 182 10*3/uL 150-450 [facility] RBC Auto (Bld) [#/Vol]Ordere d By: Renard Burgos on 06-26-2023 RBC (Bld) [#/Vol] 4.62 10*6/uL 4.6-6.2 [facility] Absolute lymphocyte countOrd ered By: Renard Burgos on 06-19-2023 Lymphocytes Auto (Unsp spec) [#/Vol] 2.13 10*3/uL 0.83-4.51 [facility] Automated lymphocyte count a s percentage of total leukocytesOrdered By: Renard Burgos on 06-19-2023 Lymphocytes/100 WBC Auto (Unsp spec) 28.8 % 19-41 [facility] Basophil percentageOrdered B y: Renard Burgos on 06-19-2023 Basophils/100 WBC (Bld) 0.5 % 0-1 [facility] Eosinophils/100 WBC (Bld) 0.5 % 0-5 [facility] Hemoglobin (Bld) [Mass/Vol] 13.7 g/dL 13.0-16.5 [facility] Monocytes/100 WBC (Bld) 8.1 % 0-10 [facility] Neutrophils (Bld) [#/Vol] 4.6 10*3/uL 2.0-7.7 [facility] Neutrophils/100 WBC (Bld) 61.6 % 47-70 [facility] WBC (Bld) [#/Vol] 7.4 10*3/uL 4.4-11.0 [facility] Determination of erythrocyte mean corpuscular volume (MCV)Ordered By: Renard Burgos on 06-19-2023 MCV (RBC) [Entitic vol] 91.7 fL 80-94 [facility] Erythrocyte distribution wid th ratioOrdered By: Renard Burgos on 06-19-2023 Erythrocyte distribution width (RBC) [Ratio] 12.7 % 11.6-14.6 [facility] Erythrocyte distribution wid th standard deviationOrdered By: Renard Burgos on 06-19-2023 Erythrocyte distribution width (RBC) [Entitic vol] 42.8 fL 35.1-43.9 [facility] Hematocrit Auto (Bld) [Volum e fraction]Ordered By: Renard Burgos on 06-19-2023 Hematocrit (Bld) [Volume fraction] 43.1 % 40-54 [facility] Immature granulocytes/100 WB C Auto (Bld)Ordered By: Renard Burgos on 06-19-2023 Immature granulocytes/100 WBC (Bld) 0.500 % 0.0-0.9 [facility] Comment on above: IG% - Immature Granu locytes (promyelocytes, myelocytes and metamyelocytes) > 1% indicates that a LEFT SHIFT is Present. Laboratory - Hematology and Cell countsOrdered By: Renard Burgos on 06-19-2023 MCH (RBC) [Entitic mass] 29.1 pg 27.0-32.0 [facility] MCHC (RBC) [Mass/Vol] 31.8 g/dL 32-36 [facility] Nucleated RBC/100 WBC (Bld) [Ratio] 0 % 0-5 [facility] Platelet mean volume (Bld) [Entitic vol] 11.1 fL 6.2-12.0 [facility] Platelets (Bld) [#/Vol] 201 10*3/uL 150-450 [facility] RBC Auto (Bld) [#/Vol]Ordere d By: Renard Burgos on 06-19-2023 RBC (Bld) [#/Vol] 4.70 10*6/uL 4.6-6.2 [facility] Absolute lymphocyte countOrd ered By: Renard Burgos on 06-12-2023 Lymphocytes Auto (Unsp spec) [#/Vol] 2.17 10*3/uL 0.83-4.51 [facility] Automated lymphocyte count a s percentage of total leukocytesOrdered By: Renard Burgos on 06-12-2023 Lymphocytes/100 WBC Auto (Unsp spec) 26.7 % 19-41 [facility] Basophil percentageOrdered B y: Renard Burgos on 06-12-2023 Basophils/100 WBC (Bld) 0.4 % 0-1 [facility] Eosinophils/100 WBC (Bld) 0.5 % 0-5 [facility] Hemoglobin (Bld) [Mass/Vol] 13.5 g/dL 13.0-16.5 [facility] Monocytes/100 WBC (Bld) 9.0 % 0-10 [facility] Neutrophils (Bld) [#/Vol] 5.1 10*3/uL 2.0-7.7 [facility] Neutrophils/100 WBC (Bld) 63.0 % 47-70 [facility] WBC (Bld) [#/Vol] 8.1 10*3/uL 4.4-11.0 [facility] Determination of erythrocyte mean corpuscular volume (MCV)Ordered By: Renard Burogs on 06-12-2023 MCV (RBC) [Entitic vol] 91.3 fL 80-94 [facility] Erythrocyte distribution wid th ratioOrdered By: Renard Burgos on 06-12-2023 Erythrocyte distribution width (RBC) [Ratio] 12.6 % 11.6-14.6 [facility] Erythrocyte distribution wid th standard deviationOrdered By: Renard Burgos on 06-12-2023 Erythrocyte distribution width (RBC) [Entitic vol] 41.5 fL 35.1-43.9 [facility] Hematocrit Auto (Bld) [Volum e fraction]Ordered By: Renard Burgos on 06-12-2023 Hematocrit (Bld) [Volume fraction] 40.8 % 40-54 [facility] Immature granulocytes/100 WB C Auto (Bld)Ordered By: Renard Burgos on 06-12-2023 Immature granulocytes/100 WBC (Bld) 0.400 % 0.0-0.9 [facility] Comment on above: IG% - Immature Granu locytes (promyelocytes, myelocytes and metamyelocytes) > 1% indicates that a LEFT SHIFT is Present. Laboratory - Hematology and Cell countsOrdered By: Renard Burgos on 06-12-2023 MCH (RBC) [Entitic mass] 30.2 pg 27.0-32.0 [facility] MCHC (RBC) [Mass/Vol] 33.1 g/dL 32-36 [facility] Nucleated RBC/100 WBC (Bld) [Ratio] 0 % 0-5 [facility] Platelet mean volume (Bld) [Entitic vol] 11.0 fL 6.2-12.0 [facility] Platelets (Bld) [#/Vol] 195 10*3/uL 150-450 [facility] RBC Auto (Bld) [#/Vol]Ordere d By: Renard Burgos on 06-12-2023 RBC (Bld) [#/Vol] 4.47 10*6/uL 4.6-6.2 [facility] Absolute lymphocyte countOrd ered By: Renard Burgos on 06-05-2023 Lymphocytes Auto (Unsp spec) [#/Vol] 2.05 10*3/uL 0.83-4.51 [facility] Automated lymphocyte count a s percentage of total leukocytesOrdered By: Renard Burgos on 06-05-2023 Lymphocytes/100 WBC Auto (Unsp spec) 24.1 % 19-41 [facility] Basophil percentageOrdered B y: Renard Burgos on 06-05-2023 Basophils/100 WBC (Bld) 0.5 % 0-1 [facility] Eosinophils/100 WBC (Bld) 0.5 % 0-5 [facility] Hemoglobin (Bld) [Mass/Vol] 13.6 g/dL 13.0-16.5 [facility] Monocytes/100 WBC (Bld) 7.6 % 0-10 [facility] Neutrophils (Bld) [#/Vol] 5.7 10*3/uL 2.0-7.7 [facility] Neutrophils/100 WBC (Bld) 66.9 % 47-70 [facility] WBC (Bld) [#/Vol] 8.5 10*3/uL 4.4-11.0 [facility] Determination of erythrocyte mean corpuscular volume (MCV)Ordered By: Renard Burgos on 06-05-2023 MCV (RBC) [Entitic vol] 89.7 fL 80-94 [facility] Erythrocyte distribution wid th ratioOrdered By: Renard Burgos on 06-05-2023 Erythrocyte distribution width (RBC) [Ratio] 12.6 % 11.6-14.6 [facility] Erythrocyte distribution wid th standard deviationOrdered By: Renard Burgos on 06-05-2023 Erythrocyte distribution width (RBC) [Entitic vol] 41.1 fL 35.1-43.9 [facility] Hematocrit Auto (Bld) [Volum e fraction]Ordered By: Renard Burgos on 06-05-2023 Hematocrit (Bld) [Volume fraction] 41.0 % 40-54 [facility] Immature granulocytes/100 WB C Auto (Bld)Ordered By: Renard Burgos on 06-05-2023 Immature granulocytes/100 WBC (Bld) 0.400 % 0.0-0.9 [facility] Comment on above: IG% - Immature Granu locytes (promyelocytes, myelocytes and metamyelocytes) > 1% indicates that a LEFT SHIFT is Present. Laboratory - Hematology and Cell countsOrdered By: Renard Burgos on 06-05-2023 MCH (RBC) [Entitic mass] 29.8 pg 27.0-32.0 [facility] MCHC (RBC) [Mass/Vol] 33.2 g/dL 32-36 [facility] Nucleated RBC/100 WBC (Bld) [Ratio] 0 % 0-5 [facility] Platelets (Bld) [#/Vol] 193 10*3/uL 150-450 [facility] Platelet mean volume Adam-Ec ker (Bld) [Entitic vol]Ordered By: Renard Burgos on 06-05-2023 Platelet mean volume (Bld) [Entitic vol] 10.8 fL 6.2-12.0 [facility] RBC Auto (Bld) [#/Vol]Ordere d By: Renard Burgos on 06-05-2023 RBC (Bld) [#/Vol] 4.57 10*6/uL 4.6-6.2 [facility] Absolute lymphocyte countOrd ered By: Renard Burgos on 05-29-2023 Lymphocytes Auto (Unsp spec) [#/Vol] 2.32 10*3/uL 0.83-4.51 [facility] Automated lymphocyte count a s percentage of total leukocytesOrdered By: Renard Burgos on 05-29-2023 Lymphocytes/100 WBC Auto (Unsp spec) 26.7 % 19-41 [facility] Basophil percentageOrdered B y: Renard Burgos on 05-29-2023 Basophils/100 WBC (Bld) 0.6 % 0-1 [facility] Eosinophils/100 WBC (Bld) 0.5 % 0-5 [facility] Hemoglobin (Bld) [Mass/Vol] 14.2 g/dL 13.0-16.5 [facility] Monocytes/100 WBC (Bld) 6.8 % 0-10 [facility] Neutrophils (Bld) [#/Vol] 5.7 10*3/uL 2.0-7.7 [facility] Neutrophils/100 WBC (Bld) 65.2 % 47-70 [facility] WBC (Bld) [#/Vol] 8.7 10*3/uL 4.4-11.0 [facility] Determination of erythrocyte mean corpuscular volume (MCV)Ordered By: Renard Burgos on 05-29-2023 MCV (RBC) [Entitic vol] 94.0 fL 80-94 [facility] Erythrocyte distribution wid th ratioOrdered By: Renard Burgos on 05-29-2023 Erythrocyte distribution width (RBC) [Ratio] 12.6 % 11.6-14.6 [facility] Erythrocyte distribution wid th standard deviationOrdered By: Renard Burgos on 05-29-2023 Erythrocyte distribution width (RBC) [Entitic vol] 43.0 fL 35.1-43.9 [facility] Hematocrit Auto (Bld) [Volum e fraction]Ordered By: Renard Burgos on 05-29-2023 Hematocrit (Bld) [Volume fraction] 45.4 % 40-54 [facility] Immature granulocytes/100 WB C Auto (Bld)Ordered By: Renard Burgos on 05-29-2023 Immature granulocytes/100 WBC (Bld) 0.200 % 0.0-0.9 [facility] Comment on above: IG% - Immature Granu locytes (promyelocytes, myelocytes and metamyelocytes) > 1% indicates that a LEFT SHIFT is Present. Laboratory - Hematology and Cell countsOrdered By: Renard Burgos on 05-29-2023 MCH (RBC) [Entitic mass] 29.4 pg 27.0-32.0 [facility] MCHC (RBC) [Mass/Vol] 31.3 g/dL 32-36 [facility] Nucleated RBC/100 WBC (Bld) [Ratio] 0 % 0-5 [facility] Platelets (Bld) [#/Vol] 116 10*3/uL 150-450 [facility] Platelet mean volume Adam-Ec ker (Bld) [Entitic vol]Ordered By: Renard Burgos on 05-29-2023 Platelet mean volume (Bld) [Entitic vol] 11.1 fL 6.2-12.0 [facility] RBC Auto (Bld) [#/Vol]Ordere d By: Renard Burgos on 05-29-2023 RBC (Bld) [#/Vol] 4.83 10*6/uL 4.6-6.2 [facility] Absolute lymphocyte countOrd ered By: Renard Burgos on 05-22-2023 Lymphocytes Auto (Unsp spec) [#/Vol] 2.40 10*3/uL 0.83-4.51 [facility] Automated lymphocyte count a s percentage of total leukocytesOrdered By: Renard Burgos on 05-22-2023 Lymphocytes/100 WBC Auto (Unsp spec) 25.6 % 19-41 [facility] Basophil percentageOrdered B y: Renard Burgos on 05-22-2023 Basophils/100 WBC (Bld) 0.4 % 0-1 [facility] Eosinophils/100 WBC (Bld) 0.4 % 0-5 [facility] Hemoglobin (Bld) [Mass/Vol] 13.7 g/dL 13.0-16.5 [facility] Monocytes/100 WBC (Bld) 9.1 % 0-10 [facility] Neutrophils (Bld) [#/Vol] 6.0 10*3/uL 2.0-7.7 [facility] Neutrophils/100 WBC (Bld) 63.9 % 47-70 [facility] WBC (Bld) [#/Vol] 9.4 10*3/uL 4.4-11.0 [facility] Determination of erythrocyte mean corpuscular volume (MCV)Ordered By: Renard Burgos on 05-22-2023 MCV (RBC) [Entitic vol] 91.8 fL 80-94 [facility] Erythrocyte distribution wid th ratioOrdered By: Renard Burgos on 05-22-2023 Erythrocyte distribution width (RBC) [Ratio] 12.8 % 11.6-14.6 [facility] Erythrocyte distribution wid th standard deviationOrdered By: Renard Burgos on 05-22-2023 Erythrocyte distribution width (RBC) [Entitic vol] 43.4 fL 35.1-43.9 [facility] Hematocrit Auto (Bld) [Volum e fraction]Ordered By: Renard Burgos on 05-22-2023 Hematocrit (Bld) [Volume fraction] 41.5 % 40-54 [facility] Immature granulocytes/100 WB C Auto (Bld)Ordered By: Renard Burgos on 05-22-2023 Immature granulocytes/100 WBC (Bld) 0.600 % 0.0-0.9 [facility] Comment on above: IG% - Immature Granu locytes (promyelocytes, myelocytes and metamyelocytes) > 1% indicates that a LEFT SHIFT is Present. Laboratory - Hematology and Cell countsOrdered By: Renard Burgos on 05-22-2023 MCH (RBC) [Entitic mass] 30.3 pg 27.0-32.0 [facility] MCHC (RBC) [Mass/Vol] 33.0 g/dL 32-36 [facility] Nucleated RBC/100 WBC (Bld) [Ratio] 0 % 0-5 [facility] Platelets (Bld) [#/Vol] 192 10*3/uL 150-450 [facility] Platelet mean volume Adam-Ec ker (Bld) [Entitic vol]Ordered By: Renard Burgos on 05-22-2023 Platelet mean volume (Bld) [Entitic vol] 11.3 fL 6.2-12.0 [facility] RBC Auto (Bld) [#/Vol]Ordere d By: Renard Burgos on 05-22-2023 RBC (Bld) [#/Vol] 4.52 10*6/uL 4.6-6.2 [facility] Absolute lymphocyte countOrd ered By: Renard Burgos on 05-15-2023 Lymphocytes Auto (Unsp spec) [#/Vol] 2.11 10*3/uL 0.83-4.51 [facility] Basophil percentageOrdered B y: Renard Burgos on 05-15-2023 Basophils/100 WBC (Bld) 0.6 % 0-1 [facility] Eosinophils/100 WBC (Bld) 0.8 % 0-5 [facility] Neutrophils (Bld) [#/Vol] 4.9 10*3/uL 2.0-7.7 [facility] Neutrophils/100 WBC (Bld) 62.4 % 47-70 [facility] WBC (Bld) [#/Vol] 7.9 10*3/uL 4.4-11.0 [facility] Blood erythrocytes count (nu mber/volume)Ordered By: Renard Burgos on 05-15-2023 RBC (Bld) [#/Vol] 4.61 10*6/uL 4.6-6.2 [facility] Blood hemoglobin measurement (mass/volume)Ordered By: Renard Burgos on 05-15-2023 Hemoglobin (Bld) [Mass/Vol] 13.9 g/dL 13.0-16.5 [facility] Blood lymphocytes/100 leukoc ytesOrdered By: Renard Burgos on 05-15-2023 Lymphocytes/100 WBC (Bld) 26.7 % 19-41 [facility] Blood monocytes/100 leukocyt esOrdered By: Renard Burgos on 05-15-2023 Monocytes/100 WBC (Bld) 9.1 % 0-10 [facility] Blood platelet mean volumeOr dered By: Renard Burgos on 05-15-2023 Platelet mean volume (Bld) [Entitic vol] 10.7 fL 6.2-12.0 [facility] Determination of erythrocyte mean corpuscular volume (MCV)Ordered By: Renard Burgos on 05-15-2023 MCV (RBC) [Entitic vol] 90.5 fL 80-94 [facility] Hematocrit Auto (Bld) [Volum e fraction]Ordered By: Renard Burgos on 05-15-2023 Hematocrit (Bld) [Volume fraction] 41.7 % 40-54 [facility] Laboratory - Hematology and Cell countsOrdered By: Renard Burgos on 05-15-2023 Erythrocyte distribution width (RBC) [Entitic vol] 42.4 fL 35.1-43.9 [facility] Erythrocyte distribution width (RBC) [Ratio] 12.9 % 11.6-14.6 [facility] Immature granulocytes/100 WBC (Bld) 0.400 % 0.0-0.9 [facility] Comment on above: IG% - Immature Granu locytes (promyelocytes, myelocytes and metamyelocytes) > 1% indicates that a LEFT SHIFT is Present. MCH (RBC) [Entitic mass] 30.2 pg 27.0-32.0 [facility] Nucleated RBC/100 WBC (Bld) [Ratio] 0 % 0-5 [facility] MCHC Auto (RBC) [Mass/Vol]Or dered By: Renard Burgos on 05-15-2023 MCHC (RBC) [Mass/Vol] 33.3 g/dL 32-36 [facility] Platelets bldOrdered By: Lyubov Burgos on 05-15-2023 Platelets (Bld) [#/Vol] 202 10*3/uL 150-450 [facility] Absolute lymphocyte countOrd ered By: Renard Burgos on 05-08-2023 Lymphocytes Auto (Unsp spec) [#/Vol] 2.06 10*3/uL 0.83-4.51 [facility] Basophil percentageOrdered B y: Renard Burgos on 05-08-2023 Basophils/100 WBC (Bld) 0.4 % 0-1 [facility] Eosinophils/100 WBC (Bld) 0.5 % 0-5 [facility] Neutrophils (Bld) [#/Vol] 5.0 10*3/uL 2.0-7.7 [facility] Neutrophils/100 WBC (Bld) 65.7 % 47-70 [facility] WBC (Bld) [#/Vol] 7.5 10*3/uL 4.4-11.0 [facility] Blood erythrocytes count (nu mber/volume)Ordered By: Renard Burgos on 05-08-2023 RBC (Bld) [#/Vol] 4.62 10*6/uL 4.6-6.2 [facility] Blood hemoglobin measurement (mass/volume)Ordered By: Renard Burgos on 05-08-2023 Hemoglobin (Bld) [Mass/Vol] 13.6 g/dL 13.0-16.5 [facility] Blood lymphocytes/100 leukoc ytesOrdered By: Renard Burgos on 05-08-2023 Lymphocytes/100 WBC (Bld) 27.4 % 19-41 [facility] Blood monocytes/100 leukocyt esOrdered By: Renard Burgos on 05-08-2023 Monocytes/100 WBC (Bld) 5.6 % 0-10 [facility] Blood platelet mean volumeOr dered By: Renard Burgos on 05-08-2023 Platelet mean volume (Bld) [Entitic vol] 11.0 fL 6.2-12.0 [facility] Determination of erythrocyte mean corpuscular volume (MCV)Ordered By: Renard Burgos on 05-08-2023 MCV (RBC) [Entitic vol] 91.8 fL 80-94 [facility] Hematocrit Auto (Bld) [Volum e fraction]Ordered By: Renard Burgos on 05-08-2023 Hematocrit (Bld) [Volume fraction] 42.4 % 40-54 [facility] - Hematology and Cell countsOrdered By: Renard Burgos on 05-08-2023 Erythrocyte distribution width (RBC) [Entitic vol] 43.1 fL 35.1-43.9 [facility] Erythrocyte distribution width (RBC) [Ratio] 13.0 % 11.6-14.6 [facility] Immature granulocytes/100 WBC (Bld) 0.400 % 0.0-0.9 [facility] Comment on above: IG% - Immature Granu locytes (promyelocytes, myelocytes and metamyelocytes) > 1% indicates that a LEFT SHIFT is Present. MCH (RBC) [Entitic mass] 29.4 pg 27.0-32.0 [facility] Nucleated RBC/100 WBC (Bld) [Ratio] 0 % 0-5 [facility] MCHC Auto (RBC) [Mass/Vol]Or dered By: Renard Burgos on 05-08-2023 MCHC (RBC) [Mass/Vol] 32.1 g/dL 32-36 [facility] Platelets bldOrdered By: Pet er Loretta on 05-08-2023 Platelets (Bld) [#/Vol] 226 10*3/uL 150-450 [facility] Absolute lymphocyte countOrd ered By: Renard Burgos on 04-17-2023 Lymphocytes Auto (Unsp spec) [#/Vol] 0.92 10*3/uL 0.83-4.51 [facility] Basophil percentageOrdered B y: Renard Burgos on 04-17-2023 Basophils/100 WBC (Bld) 0.1 % 0-1 [facility] Eosinophils/100 WBC (Bld) 0.0 % 0-5 [facility] Neutrophils (Bld) [#/Vol] 6.0 10*3/uL 2.0-7.7 [facility] Neutrophils/100 WBC (Bld) 81.4 % 47-70 [facility] WBC (Bld) [#/Vol] 7.4 10*3/uL 4.4-11.0 [facility] Blood erythrocytes count (nu mber/volume)Ordered By: Renard Burgos on 04-17-2023 RBC (Bld) [#/Vol] 4.59 10*6/uL 4.6-6.2 [facility] Blood hemoglobin measurement (mass/volume)Ordered By: Renard Burgos on 04-17-2023 Hemoglobin (Bld) [Mass/Vol] 13.7 g/dL 13.0-16.5 [facility] Blood lymphocytes/100 leukoc ytesOrdered By: Renard Burgos on 04-17-2023 Lymphocytes/100 WBC (Bld) 12.5 % 19-41 [facility] Blood monocytes/100 leukocyt esOrdered By: Renard Burgos on 04-17-2023 Monocytes/100 WBC (Bld) 5.6 % 0-10 [facility] Blood platelet mean volumeOr dered By: Renard Burgos on 04-17-2023 Platelet mean volume (Bld) [Entitic vol] 10.9 fL 6.2-12.0 [facility] Determination of erythrocyte mean corpuscular volume (MCV)Ordered By: Renard Burgos on 04-17-2023 MCV (RBC) [Entitic vol] 90.8 fL 80-94 [facility] Hematocrit Auto (Bld) [Volum e fraction]Ordered By: Renard Burgos on 04-17-2023 Hematocrit (Bld) [Volume fraction] 41.7 % 40-54 [facility] - Hematology and Cell countsOrdered By: Renard Burgos on 04-17-2023 Erythrocyte distribution width (RBC) [Entitic vol] 42.3 fL 35.1-43.9 [facility] Erythrocyte distribution width (RBC) [Ratio] 12.8 % 11.6-14.6 [facility] Immature granulocytes/100 WBC (Bld) 0.400 % 0.0-0.9 [facility] Comment on above: IG% - Immature Granu locytes (promyelocytes, myelocytes and metamyelocytes) > 1% indicates that a LEFT SHIFT is Present. MCH (RBC) [Entitic mass] 29.8 pg 27.0-32.0 [facility] Nucleated RBC/100 WBC (Bld) [Ratio] 0 % 0-5 [facility] MCHC Auto (RBC) [Mass/Vol]Or dered By: Renard Burgos on 04-17-2023 MCHC (RBC) [Mass/Vol] 32.9 g/dL 32-36 [facility] Platelets bldOrdered By: Lyubov Burgos on 04-17-2023 Platelets (Bld) [#/Vol] 194 10*3/uL 150-450 [facility] Basophil percentageOrdered B y: Renard Burgos on 04-14-2023 Bilirubin [Mass/Vol] 0.30 mg/dL 0.20-1.00 [facility] Comment on above: For patients on eltr ombopag therapy, use of Dimension [place] TBIL is not recommended. Protein [Mass/Vol] 6.2 g/dL 6.4-8.2 [facility] Direct bilirubinOrdered By: Renard Burgos on 04-14-2023 Bilirubin.direct [Mass/Vol] 0.11 mg/dL 0.00-0.30 [facility] - Chemistry and C hemistry - challengeOrdered By: Renard Burgos on 04-14-2023 ALP [Catalytic activity/Vol] 139 U/L 45-117 [facility] ALT [Catalytic activity/Vol] 23 U/L 16-61 [facility] Globulin (S) [Mass/Vol] 3.2 g/dL 2.2-4.2 [facility] Serum or plasma albumin gordy urement (mass/volume)Ordered By: Renard Burgos on 04-14-2023 Albumin [Mass/Vol] 3.0 g/dL 3.2-5.0 [facility] Thin prep Papanicolaou smear with manual screeningOrdered By: Renard Burgos on 04-14-2023 Thin prep Papanicolaou smear with manual screening 14 U/L 15-37 [facility] Absolute lymphocyte countOrd ered By: Renard Burgos on 04-10-2023 Lymphocytes Auto (Unsp spec) [#/Vol] 2.54 10*3/uL 0.83-4.51 [facility] Basophil percentageOrdered B y: Renard Burgos on 04-10-2023 Basophils/100 WBC (Bld) 0.5 % 0-1 [facility] Eosinophils/100 WBC (Bld) 0.5 % 0-5 [facility] Neutrophils (Bld) [#/Vol] 5.1 10*3/uL 2.0-7.7 [facility] Neutrophils/100 WBC (Bld) 59.0 % 47-70 [facility] WBC (Bld) [#/Vol] 8.7 10*3/uL 4.4-11.0 [facility] Blood erythrocytes count (nu mber/volume)Ordered By: Renard Burgos on 04-10-2023 RBC (Bld) [#/Vol] 4.84 10*6/uL 4.6-6.2 [facility] Blood hemoglobin measurement (mass/volume)Ordered By: Renrad Burgos on 04-10-2023 Hemoglobin (Bld) [Mass/Vol] 14.2 g/dL 13.0-16.5 [facility] Blood lymphocytes/100 leukoc ytesOrdered By: Renard Burgos on 04-10-2023 Lymphocytes/100 WBC (Bld) 29.4 % 19-41 [facility] Blood monocytes/100 leukocyt esOrdered By: Renard Burgos on 04-10-2023 Monocytes/100 WBC (Bld) 10.3 % 0-10 [facility] Blood platelet mean volumeOr dered By: Renard Burgos on 04-10-2023 Platelet mean volume (Bld) [Entitic vol] 11.1 fL 6.2-12.0 [facility] Determination of erythrocyte mean corpuscular volume (MCV)Ordered By: Renard Burgos on 04-10-2023 MCV (RBC) [Entitic vol] 91.5 fL 80-94 [facility] Hematocrit Auto (Bld) [Volum e fraction]Ordered By: Renard Burgos on 04-10-2023 Hematocrit (Bld) [Volume fraction] 44.3 % 40-54 [facility] - Hematology and Cell countsOrdered By: Renard Burgos on 04-10-2023 Erythrocyte distribution width (RBC) [Entitic vol] 41.9 fL 35.1-43.9 [facility] Erythrocyte distribution width (RBC) [Ratio] 12.6 % 11.6-14.6 [facility] Immature granulocytes/100 WBC (Bld) 0.300 % 0.0-0.9 [facility] Comment on above: IG% - Immature Granu locytes (promyelocytes, myelocytes and metamyelocytes) > 1% indicates that a LEFT SHIFT is Present. MCH (RBC) [Entitic mass] 29.3 pg 27.0-32.0 [facility] Nucleated RBC/100 WBC (Bld) [Ratio] 0 % 0-5 [facility] MCHC Auto (RBC) [Mass/Vol]Or dered By: Renard Burgos on 04-10-2023 MCHC (RBC) [Mass/Vol] 32.1 g/dL 32-36 [facility] Platelets bldOrdered By: Pet lizy Loretta on 04-10-2023 Platelets (Bld) [#/Vol] 216 10*3/uL 150-450 [facility] Absolute lymphocyte countOrd ered By: Renard Burgos on 04-03-2023 Lymphocytes Auto (Unsp spec) [#/Vol] 1.91 10*3/uL 0.83-4.51 [facility] Basophil percentageOrdered B y: Renard Burgos on 04-03-2023 Basophils/100 WBC (Bld) 0.5 % 0-1 [facility] Eosinophils/100 WBC (Bld) 0.5 % 0-5 [facility] Neutrophils (Bld) [#/Vol] 5.0 10*3/uL 2.0-7.7 [facility] Neutrophils/100 WBC (Bld) 66.5 % 47-70 [facility] WBC (Bld) [#/Vol] 7.6 10*3/uL 4.4-11.0 [facility] Blood erythrocytes count (nu mber/volume)Ordered By: Renard Burgos on 04-03-2023 RBC (Bld) [#/Vol] 4.62 10*6/uL 4.6-6.2 [facility] Blood hemoglobin measurement (mass/volume)Ordered By: Renard Burgos on 04-03-2023 Hemoglobin (Bld) [Mass/Vol] 13.7 g/dL 13.0-16.5 [facility] Blood lymphocytes/100 leukoc ytesOrdered By: Renard Burgos on 04-03-2023 Lymphocytes/100 WBC (Bld) 25.2 % 19-41 [facility] Blood monocytes/100 leukocyt esOrdered By: Renard Burgos on 04-03-2023 Monocytes/100 WBC (Bld) 6.9 % 0-10 [facility] Blood platelet mean volumeOr dered By: Renard Burgos on 04-03-2023 Platelet mean volume (Bld) [Entitic vol] 10.8 fL 6.2-12.0 [facility] Determination of erythrocyte mean corpuscular volume (MCV)Ordered By: Renard Burgos on 04-03-2023 MCV (RBC) [Entitic vol] 91.6 fL 80-94 [facility] Hematocrit Auto (Bld) [Volum e fraction]Ordered By: Renard Burgos on 04-03-2023 Hematocrit (Bld) [Volume fraction] 42.3 % 40-54 [facility] - Hematology and Cell countsOrdered By: Renard Burgos on 04-03-2023 Erythrocyte distribution width (RBC) [Entitic vol] 42.6 fL 35.1-43.9 [facility] Erythrocyte distribution width (RBC) [Ratio] 12.8 % 11.6-14.6 [facility] Immature granulocytes/100 WBC (Bld) 0.400 % 0.0-0.9 [facility] Comment on above: IG% - Immature Granu locytes (promyelocytes, myelocytes and metamyelocytes) > 1% indicates that a LEFT SHIFT is Present. MCH (RBC) [Entitic mass] 29.7 pg 27.0-32.0 [facility] Nucleated RBC/100 WBC (Bld) [Ratio] 0 % 0-5 [facility] MCHC Auto (RBC) [Mass/Vol]Or dered By: Renard Burgos on 04-03-2023 MCHC (RBC) [Mass/Vol] 32.4 g/dL 32-36 [facility] Platelets bldOrdered By: Lyubov Burgos on 04-03-2023 Platelets (Bld) [#/Vol] 216 10*3/uL 150-450 [facility] Absolute lymphocyte countOrd ered By: Renard Burgos on 03-27-2023 Lymphocytes Auto (Unsp spec) [#/Vol] 2.06 10*3/uL 0.83-4.51 [facility] Basophil percentageOrdered B y: Renard Burgos on 03-27-2023 Basophils/100 WBC (Bld) 0.4 % 0-1 [facility] Eosinophils/100 WBC (Bld) 0.2 % 0-5 [facility] Neutrophils (Bld) [#/Vol] 6.3 10*3/uL 2.0-7.7 [facility] Neutrophils/100 WBC (Bld) 68.8 % 47-70 [facility] WBC (Bld) [#/Vol] 9.1 10*3/uL 4.4-11.0 [facility] Blood erythrocytes count (nu mber/volume)Ordered By: Renard Burgos on 03-27-2023 RBC (Bld) [#/Vol] 4.51 10*6/uL 4.6-6.2 [facility] Blood hemoglobin measurement (mass/volume)Ordered By: Renard Burgos on 03-27-2023 Hemoglobin (Bld) [Mass/Vol] 13.2 g/dL 13.0-16.5 [facility] Blood lymphocytes/100 leukoc ytesOrdered By: Renard Burgos on 03-27-2023 Lymphocytes/100 WBC (Bld) 22.6 % 19-41 [facility] Blood monocytes/100 leukocyt esOrdered By: Renard Burgos on 03-27-2023 Monocytes/100 WBC (Bld) 7.3 % 0-10 [facility] Blood platelet mean volumeOr dered By: Renard Burgos on 03-27-2023 Platelet mean volume (Bld) [Entitic vol] 10.8 fL 6.2-12.0 [facility] Determination of erythrocyte mean corpuscular volume (MCV)Ordered By: eRnard Burgos on 03-27-2023 MCV (RBC) [Entitic vol] 91.6 fL 80-94 [facility] Hematocrit Auto (Bld) [Volum e fraction]Ordered By: Renard Burgos on 03-27-2023 Hematocrit (Bld) [Volume fraction] 41.3 % 40-54 [facility] - Hematology and Cell countsOrdered By: Renard Burgos on 03-27-2023 Erythrocyte distribution width (RBC) [Entitic vol] 42.9 fL 35.1-43.9 [facility] Erythrocyte distribution width (RBC) [Ratio] 12.9 % 11.6-14.6 [facility] Immature granulocytes/100 WBC (Bld) 0.700 % 0.0-0.9 [facility] Comment on above: IG% - Immature Granu locytes (promyelocytes, myelocytes and metamyelocytes) > 1% indicates that a LEFT SHIFT is Present. MCH (RBC) [Entitic mass] 29.3 pg 27.0-32.0 [facility] Nucleated RBC/100 WBC (Bld) [Ratio] 0 % 0-5 [facility] MCHC Auto (RBC) [Mass/Vol]Or dered By: Renard Burgos on 03-27-2023 MCHC (RBC) [Mass/Vol] 32.0 g/dL 32-36 [facility] Platelets bldOrdered By: Pet lizy Burgos on 03-27-2023 Platelets (Bld) [#/Vol] 205 10*3/uL 150-450 [facility] Absolute lymphocyte countOrd ered By: Renard Burgos on 03-20-2023 Lymphocytes Auto (Unsp spec) [#/Vol] 1.89 10*3/uL 0.83-4.51 [facility] Basophil percentageOrdered B y: Renard Burgos on 03-20-2023 Basophils/100 WBC (Bld) 0.5 % 0-1 [facility] Chloride [Moles/Vol] 107 mmol/L 98-107 [facility] Eosinophils/100 WBC (Bld) 0.4 % 0-5 [facility] Glucose [Mass/Vol] 124 mg/dL 74-106 [facility] Comment on above: Fasting Glucose resu lt from 100 to 125 mg/dL suggests IMPAIRED HOMEOSTASIS per A.D.A. criteria. Neutrophils (Bld) [#/Vol] 4.8 10*3/uL 2.0-7.7 [facility] Neutrophils/100 WBC (Bld) 64.9 % 47-70 [facility] Potassium [Moles/Vol] 3.6 mmol/L 3.5-5.1 [facility] Sodium [Moles/Vol] 142 mmol/L 136-145 [facility] WBC (Bld) [#/Vol] 7.4 10*3/uL 4.4-11.0 [facility] Blood erythrocytes count (nu mber/volume)Ordered By: Renard Burgos on 03-20-2023 RBC (Bld) [#/Vol] 4.63 10*6/uL 4.6-6.2 [facility] Blood hemoglobin measurement (mass/volume)Ordered By: Renard Burgos on 03-20-2023 Hemoglobin (Bld) [Mass/Vol] 13.7 g/dL 13.0-16.5 [facility] Blood lymphocytes/100 leukoc ytesOrdered By: Renard Burgos on 03-20-2023 Lymphocytes/100 WBC (Bld) 25.7 % 19-41 [facility] Blood monocytes/100 leukocyt esOrdered By: eRnard Burgos on 03-20-2023 Monocytes/100 WBC (Bld) 8.2 % 0-10 [facility] Blood platelet mean volumeOr dered By: Renard Burgos on 03-20-2023 Platelet mean volume (Bld) [Entitic vol] 10.7 fL 6.2-12.0 [facility] Determination of erythrocyte mean corpuscular volume (MCV)Ordered By: Renard Burgos on 03-20-2023 MCV (RBC) [Entitic vol] 90.9 fL 80-94 [facility] Hematocrit Auto (Bld) [Volum e fraction]Ordered By: Renard Burgos on 03-20-2023 Hematocrit (Bld) [Volume fraction] 42.1 % 40-54 [facility] - Chemistry and C hemistry - challengeOrdered By: Renard Burgos on 03-20-2023 CO2 [Moles/Vol] 29.0 mmol/L 21.0-32.0 [facility] Urea nitrogen/Creatinine [Mass ratio] 30.7 mg/mg 10- [facility] - Hematology and Cell countsOrdered By: Renard Burgos on 03-20-2023 Erythrocyte distribution width (RBC) [Entitic vol] 43.0 fL 35.1-43.9 [facility] Erythrocyte distribution width (RBC) [Ratio] 12.9 % 11.6-14.6 [facility] Immature granulocytes/100 WBC (Bld) 0.300 % 0.0-0.9 [facility] Comment on above: IG% - Immature Granu locytes (promyelocytes, myelocytes and metamyelocytes) > 1% indicates that a LEFT SHIFT is Present. MCH (RBC) [Entitic mass] 29.6 pg 27.0-32.0 [facility] Nucleated RBC/100 WBC (Bld) [Ratio] 0 % 0-5 [facility] MCHC Auto (RBC) [Mass/Vol]Or dered By: Renard Burgos on 03-20-2023 MCHC (RBC) [Mass/Vol] 32.5 g/dL 32-36 [facility] No Panel InformationOrdered By: Renard Burgos on 03-20-2023 Estimated GFR (MDRD) Amer 178 mL/min >60 [facility] Comment on above: GFR Calc Estimated GFR (MDRD) Non-Af Amer 147 mL/min >60 [facility] Comment on above: Non- GFR Calc Platelets bldOrdered By: Pet er Loretta on 03-20-2023 Platelets (Bld) [#/Vol] 208 10*3/uL 150-450 [facility] Serum or plasma calcium gordy urement (mass/volume)Ordered By: Renard Burgos on 03-20-2023 Calcium [Mass/Vol] 8.1 mg/dL 8.5-10.1 [facility] Serum or plasma creatinine m easurement (mass/volume)Ordered By: Renard Burgos on 03-20-2023 Creatinine [Mass/Vol] 0.59 mg/dL 0.70-1.30 [facility] Comment on above: The validity of the calculated GFR & GFRAA in patients over 70 years has not been determined. Clinical correlation is essential. Serum or plasma urea nitroge n measurement (mass/volume)Ordered By: Renard Burgos on 03-20-2023 Urea nitrogen [Mass/Vol] 18 mg/dL 7-18 [facility] Thin prep Papanicolaou smear with manual screeningOrdered By: Renard Burgos on 03-20-2023 Thin prep Papanicolaou smear with manual screening 6 5-15 [facility] Erythrocyte sedimentation ra teOrdered By: Renard Burgos on 03-16-2023 ESR (Bld) [Velocity] 3 mm/h 0-20 [facility] Absolute lymphocyte countOrd ered By: Renard Burgos on 03-13-2023 Lymphocytes Auto (Unsp spec) [#/Vol] 2.36 10*3/uL 0.83-4.51 [facility] Basophil percentageOrdered B y: Renard Burgos on 03-13-2023 Basophils/100 WBC (Bld) 0.5 % 0-1 [facility] Eosinophils/100 WBC (Bld) 0.5 % 0-5 [facility] Neutrophils (Bld) [#/Vol] 5.2 10*3/uL 2.0-7.7 [facility] Neutrophils/100 WBC (Bld) 61.3 % 47-70 [facility] WBC (Bld) [#/Vol] 8.5 10*3/uL 4.4-11.0 [facility] Blood erythrocytes count (nu mber/volume)Ordered By: Renard Burgos on 03-13-2023 RBC (Bld) [#/Vol] 4.55 10*6/uL 4.6-6.2 [facility] Blood hemoglobin measurement (mass/volume)Ordered By: Renard Burgos on 03-13-2023 Hemoglobin (Bld) [Mass/Vol] 13.4 g/dL 13.0-16.5 [facility] Blood lymphocytes/100 leukoc ytesOrdered By: Renard Burgos on 03-13-2023 Lymphocytes/100 WBC (Bld) 27.7 % 19-41 [facility] Blood monocytes/100 leukocyt esOrdered By: Renard Burgos on 03-13-2023 Monocytes/100 WBC (Bld) 9.5 % 0-10 [facility] Blood platelet mean volumeOr dered By: Renard Burgos on 03-13-2023 Platelet mean volume (Bld) [Entitic vol] 10.6 fL 6.2-12.0 [facility] Determination of erythrocyte mean corpuscular volume (MCV)Ordered By: Renard Burgos on 03-13-2023 MCV (RBC) [Entitic vol] 93.4 fL 80-94 [facility] Hematocrit Auto (Bld) [Volum e fraction]Ordered By: Renard Burgos on 03-13-2023 Hematocrit (Bld) [Volume fraction] 42.5 % 40-54 [facility] - Hematology and Cell countsOrdered By: Renard Burgos on 03-13-2023 Erythrocyte distribution width (RBC) [Entitic vol] 44.1 fL 35.1-43.9 [facility] Erythrocyte distribution width (RBC) [Ratio] 13.0 % 11.6-14.6 [facility] Immature granulocytes/100 WBC (Bld) 0.500 % 0.0-0.9 [facility] Comment on above: IG% - Immature Granu locytes (promyelocytes, myelocytes and metamyelocytes) > 1% indicates that a LEFT SHIFT is Present. MCH (RBC) [Entitic mass] 29.5 pg 27.0-32.0 [facility] Nucleated RBC/100 WBC (Bld) [Ratio] 0 % 0-5 [facility] MCHC Auto (RBC) [Mass/Vol]Or dered By: Renard Burgos on 03-13-2023 MCHC (RBC) [Mass/Vol] 31.5 g/dL 32-36 [facility] Platelets bldOrdered By: Lyubov Burgos on 03-13-2023 Platelets (Bld) [#/Vol] 200 10*3/uL 150-450 [facility] Absolute lymphocyte countOrd ered By: Renard Burgos on 03-06-2023 Lymphocytes Auto (Unsp spec) [#/Vol] 1.80 10*3/uL 0.83-4.51 [facility] Basophil percentageOrdered B y: Renard Burgos on 03-06-2023 Basophils/100 WBC (Bld) 0.5 % 0-1 [facility] Bilirubin [Mass/Vol] 0.40 mg/dL 0.20-1.00 [facility] Comment on above: For patients on eltr ombopag therapy, use of Dimension [place] TBIL is not recommended. Chloride [Moles/Vol] 107 mmol/L 98-107 [facility] Cholesterol [Mass/Vol] 118 mg/dL <200 [facility] Comment on above: <200 mg/dL Desirable 200-240 mg/dL Borderline >240 mg/dL High Risk Eosinophils/100 WBC (Bld) 0.5 % 0-5 [facility] Glucose [Mass/Vol] 107 mg/dL 74-106 [facility] Comment on above: Fasting Glucose resu lt from 100 to 125 mg/dL suggests IMPAIRED HOMEOSTASIS per A.D.A. criteria. Neutrophils (Bld) [#/Vol] 5.5 10*3/uL 2.0-7.7 [facility] Neutrophils/100 WBC (Bld) 68.0 % 47-70 [facility] Potassium [Moles/Vol] 3.8 mmol/L 3.5-5.1 [facility] Protein [Mass/Vol] 6.3 g/dL 6.4-8.2 [facility] Sodium [Moles/Vol] 141 mmol/L 136-145 [facility] Triglyceride [Mass/Vol] 185 mg/dL <199 [facility] Comment on above: The drugs N-Acetylcy steine and Metamizole may falsely depress this assay.Serum Triglycerides Reference Interval Normal <150 mg/dL Borderline high 150 - 199 mg/dL High 200 - 499 mg/dL Very High > or = 500 mg/dL WBC (Bld) [#/Vol] 8.1 10*3/uL 4.4-11.0 [facility] Blood erythrocytes count (nu mber/volume)Ordered By: Renard Burgos on 03-06-2023 RBC (Bld) [#/Vol] 4.69 10*6/uL 4.6-6.2 [facility] Blood hemoglobin measurement (mass/volume)Ordered By: Renard Burgos on 03-06-2023 Hemoglobin (Bld) [Mass/Vol] 14.0 g/dL 13.0-16.5 [facility] Blood lymphocytes/100 leukoc ytesOrdered By: Renard Burgos on 03-06-2023 Lymphocytes/100 WBC (Bld) 22.3 % 19-41 [facility] Blood monocytes/100 leukocyt esOrdered By: Renard Burgos on 03-06-2023 Monocytes/100 WBC (Bld) 8.2 % 0-10 [facility] Blood platelet mean volumeOr dered By: Renard Burgos on 03-06-2023 Platelet mean volume (Bld) [Entitic vol] 10.9 fL 6.2-12.0 [facility] Determination of erythrocyte mean corpuscular volume (MCV)Ordered By: Renard Burgos on 03-06-2023 MCV (RBC) [Entitic vol] 91.9 fL 80-94 [facility] Hematocrit Auto (Bld) [Volum e fraction]Ordered By: Renard Burgos on 03-06-2023 Hematocrit (Bld) [Volume fraction] 43.1 % 40-54 [facility] - Chemistry and C hemistry - challengeOrdered By: Renard Burgos on 03-06-2023 ALP [Catalytic activity/Vol] 120 U/L 45-117 [facility] ALT [Catalytic activity/Vol] 20 U/L 16-61 [facility] CO2 [Moles/Vol] 30.0 mmol/L 21.0-32.0 [facility] Globulin (S) [Mass/Vol] 3.3 g/dL 2.2-4.2 [facility] Urea nitrogen/Creatinine [Mass ratio] 27.1 mg/mg 10-20 [facility] - Hematology and Cell countsOrdered By: Renard Burgos on 03-06-2023 Erythrocyte distribution width (RBC) [Entitic vol] 42.5 fL 35.1-43.9 [facility] Erythrocyte distribution width (RBC) [Ratio] 12.9 % 11.6-14.6 [facility] Immature granulocytes/100 WBC (Bld) 0.500 % 0.0-0.9 [facility] Comment on above: IG% - Immature Granu locytes (promyelocytes, myelocytes and metamyelocytes) > 1% indicates that a LEFT SHIFT is Present. MCH (RBC) [Entitic mass] 29.9 pg 27.0-32.0 [facility] Nucleated RBC/100 WBC (Bld) [Ratio] 0 % 0-5 [facility] MCHC Auto (RBC) [Mass/Vol]Or dered By: Renard Burgos on 03-06-2023 MCHC (RBC) [Mass/Vol] 32.5 g/dL 32-36 [facility] No Panel InformationOrdered By: Renard Burgos on 03-06-2023 Estimated GFR (MDRD) Amer 165 mL/min >60 [facility] Comment on above: GFR Calc Estimated GFR (MDRD) Non-Af Amer 136 mL/min >60 [facility] Comment on above: Non- GFR Calc Platelets bldOrdered By: Lyubov Burgos on 03-06-2023 Platelets (Bld) [#/Vol] 232 10*3/uL 150-450 [facility] Serum or plasma albumin gordy urement (mass/volume)Ordered By: Renard Burgos on 03-06-2023 Albumin [Mass/Vol] 3.0 g/dL 3.2-5.0 [facility] Serum or plasma albumin/glob ulin mass ratioOrdered By: Renard Burgos on 03-06-2023 Albumin/Globulin [Mass ratio] 0.9 {ratio} 0.9-2.4 [facility] Serum or plasma calcium gordy urement (mass/volume)Ordered By: Renard Burgos on 03-06-2023 Calcium [Mass/Vol] 8.2 mg/dL 8.5-10.1 [facility] Serum or plasma cholesterol in HDL measurement (mass/volume)Ordered By: Renard uBrgos on 03-06-2023 Cholesterol in HDL [Mass/Vol] 25 mg/dL >40 [facility] Comment on above: The drugs N-Acetylcy steine and Metamizole may falsely depress this assay. Reference Range HDL <40 mg/dL Low HDL Cholesterol HDL >or= 60 mg/dL High HDL Cholesterol Serum or plasma cholesterol in VLDL measurement (mass/volume)Ordered By: Renard Burgos on 03-06-2023 Cholesterol in VLDL [Mass/Vol] 37 mg/dL 5-40 [facility] Serum or plasma creatinine m easurement (mass/volume)Ordered By: eRnard Burgos on 03-06-2023 Creatinine [Mass/Vol] 0.63 mg/dL 0.70-1.30 [facility] Comment on above: The validity of the calculated GFR & GFRAA in patients over 70 years has not been determined. Clinical correlation is essential. Serum or plasma low density lipoprotein (LDL) cholesterol measurement (mass/volume)Ordered By: Renard Burgos on 03-06-2023 Cholesterol in LDL [Mass/Vol] 56 mg/dL 0-130 [facility] Serum or plasma urea nitroge n measurement (mass/volume)Ordered By: Renard Burgos on 03-06-2023 Urea nitrogen [Mass/Vol] 17 mg/dL 7-18 [facility] Thin prep Papanicolaou smear with manual screeningOrdered By: Renard Burgos on 03-06-2023 Thin prep Papanicolaou smear with manual screening 10 U/L 15-37 [facility] Thin prep Papanicolaou smear with manual screening 4 5-15 [facility] Absolute lymphocyte countOrd ered By: Renard Burgos on 02-27-2023 Lymphocytes Auto (Unsp spec) [#/Vol] 2.13 10*3/uL 0.83-4.51 [facility] Basophil percentageOrdered B y: Renard Burgos on 02-27-2023 Basophils/100 WBC (Bld) 0.6 % 0-1 [facility] Eosinophils/100 WBC (Bld) 0.6 % 0-5 [facility] Neutrophils (Bld) [#/Vol] 5.1 10*3/uL 2.0-7.7 [facility] Neutrophils/100 WBC (Bld) 63.3 % 47-70 [facility] WBC (Bld) [#/Vol] 8.1 10*3/uL 4.4-11.0 [facility] Blood erythrocytes count (nu mber/volume)Ordered By: Renard Burgos on 02-27-2023 RBC (Bld) [#/Vol] 4.54 10*6/uL 4.6-6.2 [facility] Blood hemoglobin measurement (mass/volume)Ordered By: Renard Burgos on 02-27-2023 Hemoglobin (Bld) [Mass/Vol] 13.7 g/dL 13.0-16.5 [facility] Blood lymphocytes/100 leukoc ytesOrdered By: Renard Burgos on 02-27-2023 Lymphocytes/100 WBC (Bld) 26.4 % 19-41 [facility] Blood monocytes/100 leukocyt esOrdered By: Renard Burgos on 02-27-2023 Monocytes/100 WBC (Bld) 8.7 % 0-10 [facility] Blood platelet mean volumeOr dered By: Renard Burgos on 02-27-2023 Platelet mean volume (Bld) [Entitic vol] 10.8 fL 6.2-12.0 [facility] Determination of erythrocyte mean corpuscular volume (MCV)Ordered By: Renard Burgos on 02-27-2023 MCV (RBC) [Entitic vol] 89.9 fL 80-94 [facility] Hematocrit Auto (Bld) [Volum e fraction]Ordered By: Renard Burgos on 02-27-2023 Hematocrit (Bld) [Volume fraction] 40.8 % 40-54 [facility] - Hematology and Cell countsOrdered By: Renard Burgos on 02-27-2023 Erythrocyte distribution width (RBC) [Entitic vol] 41.0 fL 35.1-43.9 [facility] Erythrocyte distribution width (RBC) [Ratio] 12.5 % 11.6-14.6 [facility] Immature granulocytes/100 WBC (Bld) 0.400 % 0.0-0.9 [facility] Comment on above: IG% - Immature Granu locytes (promyelocytes, myelocytes and metamyelocytes) > 1% indicates that a LEFT SHIFT is Present. MCH (RBC) [Entitic mass] 30.2 pg 27.0-32.0 [facility] Nucleated RBC/100 WBC (Bld) [Ratio] 0 % 0-5 [facility] MCHC Auto (RBC) [Mass/Vol]Or dered By: Renard Burgos on 02-27-2023 MCHC (RBC) [Mass/Vol] 33.6 g/dL 32-36 [facility] Platelets bldOrdered By: Lyubov Burgos on 02-27-2023 Platelets (Bld) [#/Vol] 182 10*3/uL 150-450 [facility] Absolute lymphocyte countOrd ered By: Renard Burgos on 02-20-2023 Lymphocytes Auto (Unsp spec) [#/Vol] 2.23 10*3/uL 0.83-4.51 [facility] Basophil percentageOrdered B y: Renard Burgos on 02-20-2023 Basophils/100 WBC (Bld) 0.3 % 0-1 [facility] Eosinophils/100 WBC (Bld) 0.7 % 0-5 [facility] Neutrophils (Bld) [#/Vol] 5.9 10*3/uL 2.0-7.7 [facility] Neutrophils/100 WBC (Bld) 65.7 % 47-70 [facility] WBC (Bld) [#/Vol] 9.0 10*3/uL 4.4-11.0 [facility] Blood erythrocytes count (nu mber/volume)Ordered By: Renard Burgos on 02-20-2023 RBC (Bld) [#/Vol] 4.46 10*6/uL 4.6-6.2 [facility] Blood hemoglobin measurement (mass/volume)Ordered By: Renard Burgos on 02-20-2023 Hemoglobin (Bld) [Mass/Vol] 13.3 g/dL 13.0-16.5 [facility] Blood lymphocytes/100 leukoc ytesOrdered By: Renard Burgos on 02-20-2023 Lymphocytes/100 WBC (Bld) 24.7 % 19-41 [facility] Blood monocytes/100 leukocyt esOrdered By: Renard Burgos on 02-20-2023 Monocytes/100 WBC (Bld) 8.0 % 0-10 [facility] Blood platelet mean volumeOr dered By: Renard Burgos on 02-20-2023 Platelet mean volume (Bld) [Entitic vol] 10.7 fL 6.2-12.0 [facility] Determination of erythrocyte mean corpuscular volume (MCV)Ordered By: Renard Burgos on 02-20-2023 MCV (RBC) [Entitic vol] 90.6 fL 80-94 [facility] Hematocrit Auto (Bld) [Volum e fraction]Ordered By: Renard Burgos on 02-20-2023 Hematocrit (Bld) [Volume fraction] 40.4 % 40-54 [facility] - Hematology and Cell countsOrdered By: Renard Burgos on 02-20-2023 Erythrocyte distribution width (RBC) [Entitic vol] 41.9 fL 35.1-43.9 [facility] Erythrocyte distribution width (RBC) [Ratio] 12.8 % 11.6-14.6 [facility] Immature granulocytes/100 WBC (Bld) 0.600 % 0.0-0.9 [facility] Comment on above: IG% - Immature Granu locytes (promyelocytes, myelocytes and metamyelocytes) > 1% indicates that a LEFT SHIFT is Present. MCH (RBC) [Entitic mass] 29.8 pg 27.0-32.0 [facility] Nucleated RBC/100 WBC (Bld) [Ratio] 0 % 0-5 [facility] MCHC Auto (RBC) [Mass/Vol]Or dered By: Renard Burgos on 02-20-2023 MCHC (RBC) [Mass/Vol] 32.9 g/dL 32-36 [facility] Platelets bldOrdered By: Lyubov medel Loretta on 02-20-2023 Platelets (Bld) [#/Vol] 220 10*3/uL 150-450 [facility] Absolute lymphocyte countOrd ered By: Renrad Burgos on 02-13-2023 Lymphocytes Auto (Unsp spec) [#/Vol] 2.01 10*3/uL 0.83-4.51 [facility] Basophil percentageOrdered B y: Renard Burgos on 02-13-2023 Basophils/100 WBC (Bld) 0.7 % 0-1 [facility] Eosinophils/100 WBC (Bld) 0.5 % 0-5 [facility] Neutrophils (Bld) [#/Vol] 4.7 10*3/uL 2.0-7.7 [facility] Neutrophils/100 WBC (Bld) 63.3 % 47-70 [facility] WBC (Bld) [#/Vol] 7.4 10*3/uL 4.4-11.0 [facility] Blood erythrocytes count (nu mber/volume)Ordered By: Renard Burgos on 02-13-2023 RBC (Bld) [#/Vol] 4.46 10*6/uL 4.6-6.2 [facility] Blood hemoglobin measurement (mass/volume)Ordered By: Renard Burgos on 02-13-2023 Hemoglobin (Bld) [Mass/Vol] 13.6 g/dL 13.0-16.5 [facility] Blood lymphocytes/100 leukoc ytesOrdered By: Renard Burgos on 02-13-2023 Lymphocytes/100 WBC (Bld) 27.0 % 19-41 [facility] Blood monocytes/100 leukocyt esOrdered By: Renard Burgos on 02-13-2023 Monocytes/100 WBC (Bld) 8.1 % 0-10 [facility] Blood platelet mean volumeOr dered By: Renard Burgos on 02-13-2023 Platelet mean volume (Bld) [Entitic vol] 10.7 fL 6.2-12.0 [facility] Determination of erythrocyte mean corpuscular volume (MCV)Ordered By: Renard Burgos on 02-13-2023 MCV (RBC) [Entitic vol] 92.6 fL 80-94 [facility] Hematocrit Auto (Bld) [Volum e fraction]Ordered By: Renard Burgos on 02-13-2023 Hematocrit (Bld) [Volume fraction] 41.3 % 40-54 [facility] - Hematology and Cell countsOrdered By: Renard Burgos on 02-13-2023 Erythrocyte distribution width (RBC) [Entitic vol] 42.7 fL 35.1-43.9 [facility] Erythrocyte distribution width (RBC) [Ratio] 12.6 % 11.6-14.6 [facility] Immature granulocytes/100 WBC (Bld) 0.400 % 0.0-0.9 [facility] Comment on above: IG% - Immature Granu locytes (promyelocytes, myelocytes and metamyelocytes) > 1% indicates that a LEFT SHIFT is Present. MCH (RBC) [Entitic mass] 30.5 pg 27.0-32.0 [facility] Nucleated RBC/100 WBC (Bld) [Ratio] 0 % 0-5 [facility] MCHC Auto (RBC) [Mass/Vol]Or dered By: Renard Burgos on 02-13-2023 MCHC (RBC) [Mass/Vol] 32.9 g/dL 32-36 [facility] Platelets bldOrdered By: Lyubov Burgos on 02-13-2023 Platelets (Bld) [#/Vol] 187 10*3/uL 150-450 [facility] Absolute lymphocyte countOrd ered By: Renard Burgos on 02-06-2023 Lymphocytes Auto (Unsp spec) [#/Vol] 2.28 10*3/uL 0.83-4.51 [facility] Basophil percentageOrdered B y: Renard Burgos on 02-06-2023 Basophils/100 WBC (Bld) 0.5 % 0-1 [facility] Eosinophils/100 WBC (Bld) 0.7 % 0-5 [facility] Neutrophils (Bld) [#/Vol] 5.5 10*3/uL 2.0-7.7 [facility] Neutrophils/100 WBC (Bld) 63.7 % 47-70 [facility] WBC (Bld) [#/Vol] 8.6 10*3/uL 4.4-11.0 [facility] Blood erythrocytes count (nu mber/volume)Ordered By: Renard Burgos on 02-06-2023 RBC (Bld) [#/Vol] 4.71 10*6/uL 4.6-6.2 [facility] Blood hemoglobin measurement (mass/volume)Ordered By: Renard Burgos on 02-06-2023 Hemoglobin (Bld) [Mass/Vol] 14.1 g/dL 13.0-16.5 [facility] Blood lymphocytes/100 leukoc ytesOrdered By: Renard Burgos on 02-06-2023 Lymphocytes/100 WBC (Bld) 26.4 % 19-41 [facility] Blood monocytes/100 leukocyt esOrdered By: Renard Burgos on 02-06-2023 Monocytes/100 WBC (Bld) 8.2 % 0-10 [facility] Blood platelet mean volumeOr dered By: Renard Burgos on 02-06-2023 Platelet mean volume (Bld) [Entitic vol] 11.0 fL 6.2-12.0 [facility] Determination of erythrocyte mean corpuscular volume (MCV)Ordered By: Renard Burgos on 02-06-2023 MCV (RBC) [Entitic vol] 94.5 fL 80-94 [facility] Hematocrit Auto (Bld) [Volum e fraction]Ordered By: Renard Burgos on 02-06-2023 Hematocrit (Bld) [Volume fraction] 44.5 % 40-54 [facility] - Hematology and Cell countsOrdered By: Renard Burgos on 02-06-2023 Erythrocyte distribution width (RBC) [Entitic vol] 43.5 fL 35.1-43.9 [facility] Erythrocyte distribution width (RBC) [Ratio] 12.7 % 11.6-14.6 [facility] Immature granulocytes/100 WBC (Bld) 0.500 % 0.0-0.9 [facility] Comment on above: IG% - Immature Granu locytes (promyelocytes, myelocytes and metamyelocytes) > 1% indicates that a LEFT SHIFT is Present. MCH (RBC) [Entitic mass] 29.9 pg 27.0-32.0 [facility] Nucleated RBC/100 WBC (Bld) [Ratio] 0 % 0-5 [facility] MCHC Auto (RBC) [Mass/Vol]Or dered By: Renard Burgos on 02-06-2023 MCHC (RBC) [Mass/Vol] 31.7 g/dL 32-36 [facility] Platelets bldOrdered By: Lyubov Burgos on 02-06-2023 Platelets (Bld) [#/Vol] 196 10*3/uL 150-450 [facility] Absolute lymphocyte countOrd ered By: Renard Burgos on 01-30-2023 Lymphocytes Auto (Unsp spec) [#/Vol] 1.91 10*3/uL 0.83-4.51 [facility] Basophil percentageOrdered B y: Renard Burgos on 01-30-2023 Basophils/100 WBC (Bld) 0.5 % 0-1 [facility] Eosinophils/100 WBC (Bld) 0.5 % 0-5 [facility] Neutrophils (Bld) [#/Vol] 6.0 10*3/uL 2.0-7.7 [facility] Neutrophils/100 WBC (Bld) 69.4 % 47-70 [facility] WBC (Bld) [#/Vol] 8.7 10*3/uL 4.4-11.0 [facility] Basophil percentage 0 SEEN /hpf 0-5 [facility] Bilirubin Test strip Ql (U)O rdered By: Renard Burgos on 01-30-2023 Bilirubin Ql (U) Negative Negative [facility] Blood erythrocytes count (nu mber/volume)Ordered By: Renard Burgos on 01-30-2023 RBC (Bld) [#/Vol] 4.50 10*6/uL 4.6-6.2 [facility] Blood hemoglobin measurement (mass/volume)Ordered By: Renard Burgos on 01-30-2023 Hemoglobin (Bld) [Mass/Vol] 13.5 g/dL 13.0-16.5 [facility] Blood lymphocytes/100 leukoc ytesOrdered By: Renard Burgos on 01-30-2023 Lymphocytes/100 WBC (Bld) 22.1 % 19-41 [facility] Blood monocytes/100 leukocyt esOrdered By: Renard Burgos on 01-30-2023 Monocytes/100 WBC (Bld) 7.2 % 0-10 [facility] Blood platelet mean volumeOr dered By: Renard Burgos on 01-30-2023 Platelet mean volume (Bld) [Entitic vol] 11.1 fL 6.2-12.0 [facility] Culture, urineOrdered By: Garrick Bhatt on 01-30-2023 Bacteria identified Cx Nom (U) Positive [facility] Determination of erythrocyte mean corpuscular volume (MCV)Ordered By: Renard Burgos on 01-30-2023 MCV (RBC) [Entitic vol] 91.3 fL 80-94 [facility] Hematocrit Auto (Bld) [Volum e fraction]Ordered By: Renard Burgos on 01-30-2023 Hematocrit (Bld) [Volume fraction] 41.1 % 40-54 [facility] Ketones Test strip Ql (U)Ord ered By: Renard Burgos on 01-30-2023 Ketones Ql (U) Negative Negative [facility] - Hematology and Cell countsOrdered By: Renard Burgos on 01-30-2023 Erythrocyte distribution width (RBC) [Entitic vol] 41.4 fL 35.1-43.9 [facility] Erythrocyte distribution width (RBC) [Ratio] 12.6 % 11.6-14.6 [facility] Immature granulocytes/100 WBC (Bld) 0.300 % 0.0-0.9 [facility] Comment on above: IG% - Immature Granu locytes (promyelocytes, myelocytes and metamyelocytes) > 1% indicates that a LEFT SHIFT is Present. MCH (RBC) [Entitic mass] 30.0 pg 27.0-32.0 [facility] Nucleated RBC/100 WBC (Bld) [Ratio] 0 % 0-5 [facility] MCHC Auto (RBC) [Mass/Vol]Or dered By: Renard Burgos on 01-30-2023 MCHC (RBC) [Mass/Vol] 32.8 g/dL 32-36 [facility] Mucus LM Ql (Urine sed)Order ed By: Renard Burgos on 01-30-2023 Mucus Ql (Urine sed) 0 SEEN /hpf [facility] Nitrite Test strip Ql (U)Ord ered By: Renard Burgos on 01-30-2023 Nitrite Ql (U) Negative Negative [facility] No Panel InformationOrdered By: Renard Burgos on 01-30-2023 Prostate Specific Antigen Screen 4.18 ng/mL 0.00-4.00 [facility] Comment on above: This test was perfor med using the TPSA assay method for the[employer] chemistry system. Values obtained with differentassay methods cannot be used interchangably.When changing PSA assays in the course of monitoring apatient, additional sequential testing should be carriedout to confirm baseline values. Platelets bldOrdered By: Lyubov Burgos on 01-30-2023 Platelets (Bld) [#/Vol] 205 10*3/uL 150-450 [facility] Protein Test strip Ql (U)Ord ered By: Renard Burgos on 01-30-2023 Protein Ql (U) Negative Negative [facility] Squamous epithelial cells de tection in urine sediment by light microscopyOrdered By: Renard Burgos on 01-30-2023 Epithelial cells.squamous LM Ql (Urine sed) 0-5 SEEN /hpf 0-5 [facility] Urine blood detectionOrdered By: Renard Burgos on 01-30-2023 RBC Ql (U) Negative Negative [facility] RBC Ql (U) 0 SEEN /hpf 0-5 [facility] Urine clarityOrdered By: Lyubov Burgos on 01-30-2023 Clarity (U) Clear Clear [facility] Urine color determinationOrd ered By: Renard Burgos on 01-30-2023 Color (U) Yellow Yellow [facility] Urine glucose detectionOrder ed By: Renard Burgos on 01-30-2023 Glucose Ql (U) Normal mg/dl Normal [facility] Urine leukocyte esterase det ection by dipstickOrdered By: Renard Burgos on 01-30-2023 Leukocyte esterase Test strip Ql (U) Negative Negative [facility] Urine pHOrdered By: Renard ocampo on 01-30-2023 pH (U) 8.0 [pH] 5.0 - 8.0 [facility] Urine sediment bacteria coun t by microscopy (number/high power field)Ordered By: Renard Burgos on 01-30-2023 Bacteria LM.HPF (Urine sed) [#/Area] 0 /[HPF] None Seen [facility] Urine specific gravity measu rementOrdered By: Renard Burgos on 01-30-2023 Specific gravity (U) [Rel density] 1.010 1.002-1.030 [facility] Urobilinogen Auto test strip Ql (U)Ordered By: Renard Burgos on 01-30-2023 Urobilinogen Ql (U) Normal mg/dl Normal [facility] Absolute lymphocyte countOrd ered By: Renard Burgos on 01-23-2023 Lymphocytes Auto (Unsp spec) [#/Vol] 2.32 10*3/uL 0.83-4.51 [facility] Basophil percentageOrdered B y: Renard Burgos on 01-23-2023 Basophils/100 WBC (Bld) 0.6 % 0-1 [facility] Eosinophils/100 WBC (Bld) 0.4 % 0-5 [facility] Neutrophils (Bld) [#/Vol] 5.3 10*3/uL 2.0-7.7 [facility] Neutrophils/100 WBC (Bld) 62.7 % 47-70 [facility] WBC (Bld) [#/Vol] 8.4 10*3/uL 4.4-11.0 [facility] Blood erythrocytes count (nu mber/volume)Ordered By: Renard Burgos on 01-23-2023 RBC (Bld) [#/Vol] 4.49 10*6/uL 4.6-6.2 [facility] Blood hemoglobin measurement (mass/volume)Ordered By: Renard Burgos on 01-23-2023 Hemoglobin (Bld) [Mass/Vol] 13.6 g/dL 13.0-16.5 [facility] Blood lymphocytes/100 leukoc ytesOrdered By: Renard Burgos on 01-23-2023 Lymphocytes/100 WBC (Bld) 27.5 % 19-41 [facility] Blood monocytes/100 leukocyt esOrdered By: Renard Burgos on 01-23-2023 Monocytes/100 WBC (Bld) 8.2 % 0-10 [facility] Blood platelet mean volumeOr dered By: Renard Burgos on 01-23-2023 Platelet mean volume (Bld) [Entitic vol] 10.9 fL 6.2-12.0 [facility] Determination of erythrocyte mean corpuscular volume (MCV)Ordered By: Renard Burgos on 01-23-2023 MCV (RBC) [Entitic vol] 93.1 fL 80-94 [facility] Hematocrit Auto (Bld) [Volum e fraction]Ordered By: Renard Burgos on 01-23-2023 Hematocrit (Bld) [Volume fraction] 41.8 % 40-54 [facility] - Hematology and Cell countsOrdered By: Renard Burgos on 01-23-2023 Erythrocyte distribution width (RBC) [Entitic vol] 42.7 fL 35.1-43.9 [facility] Erythrocyte distribution width (RBC) [Ratio] 12.6 % 11.6-14.6 [facility] Immature granulocytes/100 WBC (Bld) 0.600 % 0.0-0.9 [facility] Comment on above: IG% - Immature Granu locytes (promyelocytes, myelocytes and metamyelocytes) > 1% indicates that a LEFT SHIFT is Present. MCH (RBC) [Entitic mass] 30.3 pg 27.0-32.0 [facility] Nucleated RBC/100 WBC (Bld) [Ratio] 0 % 0-5 [facility] MCHC Auto (RBC) [Mass/Vol]Or dered By: Renard Burgos on 01-23-2023 MCHC (RBC) [Mass/Vol] 32.5 g/dL 32-36 [facility] Platelets bldOrdered By: Lyubov Burgos on 01-23-2023 Platelets (Bld) [#/Vol] 220 10*3/uL 150-450 [facility] Absolute lymphocyte countOrd ered By: Renard Burgos on 01-16-2023 Lymphocytes Auto (Unsp spec) [#/Vol] 1.80 10*3/uL 0.83-4.51 [facility] Basophil percentageOrdered B y: Renard Burgos on 01-16-2023 Basophils/100 WBC (Bld) 0.4 % 0-1 [facility] Eosinophils/100 WBC (Bld) 0.4 % 0-5 [facility] Neutrophils (Bld) [#/Vol] 7.2 10*3/uL 2.0-7.7 [facility] Neutrophils/100 WBC (Bld) 73.5 % 47-70 [facility] WBC (Bld) [#/Vol] 9.8 10*3/uL 4.4-11.0 [facility] Blood erythrocytes count (nu mber/volume)Ordered By: Renard Burgos on 01-16-2023 RBC (Bld) [#/Vol] 4.77 10*6/uL 4.6-6.2 [facility] Blood hemoglobin measurement (mass/volume)Ordered By: Renard Burgos on 01-16-2023 Hemoglobin (Bld) [Mass/Vol] 14.1 g/dL 13.0-16.5 [facility] Blood lymphocytes/100 leukoc ytesOrdered By: Renard Burgos on 01-16-2023 Lymphocytes/100 WBC (Bld) 18.4 % 19-41 [facility] Blood monocytes/100 leukocyt esOrdered By: Renard Burgos on 01-16-2023 Monocytes/100 WBC (Bld) 6.9 % 0-10 [facility] Blood platelet mean volumeOr dered By: Renard Burgos on 01-16-2023 Platelet mean volume (Bld) [Entitic vol] 10.6 fL 6.2-12.0 [facility] Determination of erythrocyte mean corpuscular volume (MCV)Ordered By: Renard Burgos on 01-16-2023 MCV (RBC) [Entitic vol] 92.5 fL 80-94 [facility] Hematocrit Auto (Bld) [Volum e fraction]Ordered By: Renard Burgos on 01-16-2023 Hematocrit (Bld) [Volume fraction] 44.1 % 40-54 [facility] - Hematology and Cell countsOrdered By: Renard Burgos on 01-16-2023 Erythrocyte distribution width (RBC) [Entitic vol] 41.8 fL 35.1-43.9 [facility] Erythrocyte distribution width (RBC) [Ratio] 12.4 % 11.6-14.6 [facility] Immature granulocytes/100 WBC (Bld) 0.400 % 0.0-0.9 [facility] Comment on above: IG% - Immature Granu locytes (promyelocytes, myelocytes and metamyelocytes) > 1% indicates that a LEFT SHIFT is Present. MCH (RBC) [Entitic mass] 29.6 pg 27.0-32.0 [facility] Nucleated RBC/100 WBC (Bld) [Ratio] 0 % 0-5 [facility] MCHC Auto (RBC) [Mass/Vol]Or dered By: Renard Burgos on 01-16-2023 MCHC (RBC) [Mass/Vol] 32.0 g/dL 32-36 [facility] Platelets bldOrdered By: [facility] er Loretta on 01-16-2023 Platelets (Bld) [#/Vol] 221 10*3/uL 150-450 [facility] Absolute lymphocyte countOrd ered By: Renard Burgos on 01-09-2023 Lymphocytes Auto (Unsp spec) [#/Vol] 2.41 10*3/uL 0.83-4.51 [facility] Basophil percentageOrdered B y: Renard Burgos on 01-09-2023 Basophils/100 WBC (Bld) 0.7 % 0-1 [facility] Eosinophils/100 WBC (Bld) 0.8 % 0-5 [facility] Neutrophils (Bld) [#/Vol] 5.4 10*3/uL 2.0-7.7 [facility] Neutrophils/100 WBC (Bld) 60.5 % 47-70 [facility] WBC (Bld) [#/Vol] 8.9 10*3/uL 4.4-11.0 [facility] Blood erythrocytes count (nu mber/volume)Ordered By: Renard Burgos on 01-09-2023 RBC (Bld) [#/Vol] 4.56 10*6/uL 4.6-6.2 [facility] Blood hemoglobin measurement (mass/volume)Ordered By: Renard Burgos on 01-09-2023 Hemoglobin (Bld) [Mass/Vol] 13.8 g/dL 13.0-16.5 [facility] Blood lymphocytes/100 leukoc ytesOrdered By: Renard Burgos on 01-09-2023 Lymphocytes/100 WBC (Bld) 27.0 % 19-41 [facility] Blood monocytes/100 leukocyt esOrdered By: Renard Burgos on 01-09-2023 Monocytes/100 WBC (Bld) 10.7 % 0-10 [facility] Blood platelet mean volumeOr dered By: Renard Burgos on 01-09-2023 Platelet mean volume (Bld) [Entitic vol] 10.8 fL 6.2-12.0 [facility] Determination of erythrocyte mean corpuscular volume (MCV)Ordered By: Renard Burgos on 01-09-2023 MCV (RBC) [Entitic vol] 92.5 fL 80-94 [facility] Hematocrit Auto (Bld) [Volum e fraction]Ordered By: Renard Burgos on 01-09-2023 Hematocrit (Bld) [Volume fraction] 42.2 % 40-54 [facility] - Hematology and Cell countsOrdered By: Renard Burgos on 01-09-2023 Erythrocyte distribution width (RBC) [Entitic vol] 42.7 fL 35.1-43.9 [facility] Erythrocyte distribution width (RBC) [Ratio] 12.5 % 11.6-14.6 [facility] Immature granulocytes/100 WBC (Bld) 0.300 % 0.0-0.9 [facility] Comment on above: IG% - Immature Granu locytes (promyelocytes, myelocytes and metamyelocytes) > 1% indicates that a LEFT SHIFT is Present. MCH (RBC) [Entitic mass] 30.3 pg 27.0-32.0 [facility] Nucleated RBC/100 WBC (Bld) [Ratio] 0 % 0-5 [facility] MCHC Auto (RBC) [Mass/Vol]Or dered By: Renard Burgos on 01-09-2023 MCHC (RBC) [Mass/Vol] 32.7 g/dL 32-36 [facility] Platelets bldOrdered By: Lyubov Burgos on 01-09-2023 Platelets (Bld) [#/Vol] 209 10*3/uL 150-450 [facility] Absolute lymphocyte countOrd ered By: Renard Burgos on 01-03-2023 Lymphocytes Auto (Unsp spec) [#/Vol] 2.18 10*3/uL 0.83-4.51 [facility] Basophil percentageOrdered B y: Renard Burgos on 01-03-2023 Basophils/100 WBC (Bld) 0.6 % 0-1 [facility] Eosinophils/100 WBC (Bld) 0.5 % 0-5 [facility] Neutrophils (Bld) [#/Vol] 5.4 10*3/uL 2.0-7.7 [facility] Neutrophils/100 WBC (Bld) 64.2 % 47-70 [facility] WBC (Bld) [#/Vol] 8.4 10*3/uL 4.4-11.0 [facility] Blood erythrocytes count (nu mber/volume)Ordered By: Renard Burgos on 01-03-2023 RBC (Bld) [#/Vol] 4.59 10*6/uL 4.6-6.2 [facility] Blood hemoglobin measurement (mass/volume)Ordered By: Renard Burgos on 01-03-2023 Hemoglobin (Bld) [Mass/Vol] 13.9 g/dL 13.0-16.5 [facility] Blood lymphocytes/100 leukoc ytesOrdered By: Renard Burgos on 01-03-2023 Lymphocytes/100 WBC (Bld) 25.9 % 19-41 [facility] Blood monocytes/100 leukocyt esOrdered By: Renard Burgos on 01-03-2023 Monocytes/100 WBC (Bld) 8.3 % 0-10 [facility] Blood platelet mean volumeOr dered By: Renard Burgos on 01-03-2023 Platelet mean volume (Bld) [Entitic vol] 11.0 fL 6.2-12.0 [facility] Determination of erythrocyte mean corpuscular volume (MCV)Ordered By: Renard Burgos on 01-03-2023 MCV (RBC) [Entitic vol] 92.8 fL 80-94 [facility] Hematocrit Auto (Bld) [Volum e fraction]Ordered By: Renard Burgos on 01-03-2023 Hematocrit (Bld) [Volume fraction] 42.6 % 40-54 [facility] - Hematology and Cell countsOrdered By: Renard Burgos on 01-03-2023 Erythrocyte distribution width (RBC) [Entitic vol] 42.5 fL 35.1-43.9 [facility] Erythrocyte distribution width (RBC) [Ratio] 12.6 % 11.6-14.6 [facility] Immature granulocytes/100 WBC (Bld) 0.500 % 0.0-0.9 [facility] Comment on above: IG% - Immature Granu locytes (promyelocytes, myelocytes and metamyelocytes) > 1% indicates that a LEFT SHIFT is Present. MCH (RBC) [Entitic mass] 30.3 pg 27.0-32.0 [facility] Nucleated RBC/100 WBC (Bld) [Ratio] 0 % 0-5 [facility] MCHC Auto (RBC) [Mass/Vol]Or dered By: Renard Burgos on 01-03-2023 MCHC (RBC) [Mass/Vol] 32.6 g/dL 32-36 [facility] No Panel InformationOrdered By: Renard Burgos on 01-03-2023 Prostate Specific Antigen Screen 3.37 ng/mL 0.00-4.00 [facility] Comment on above: This test was perfor med using the TPSA assay method for the[employer] chemistry system. Values obtained with differentassay methods cannot be used interchangably.When changing PSA assays in the course of monitoring apatient, additional sequential testing should be carriedout to confirm baseline values. Platelets bldOrdered By: Lyubov Burgos on 01-03-2023 Platelets (Bld) [#/Vol] 200 10*3/uL 150-450 [facility] Absolute lymphocyte countOrd ered By: Renard Burgos on 12-26-2022 Lymphocytes Auto (Unsp spec) [#/Vol] 1.80 10*3/uL 0.83-4.51 [facility] Basophil percentageOrdered B y: Renard Burgos on 12-26-2022 Basophils/100 WBC (Bld) 0.4 % 0-1 [facility] Eosinophils/100 WBC (Bld) 0.6 % 0-5 [facility] Neutrophils (Bld) [#/Vol] 6.2 10*3/uL 2.0-7.7 [facility] Neutrophils/100 WBC (Bld) 69.8 % 47-70 [facility] WBC (Bld) [#/Vol] 8.9 10*3/uL 4.4-11.0 [facility] Blood erythrocytes count (nu mber/volume)Ordered By: Renard Burgos on 12-26-2022 RBC (Bld) [#/Vol] 4.58 10*6/uL 4.6-6.2 [facility] Blood hemoglobin measurement (mass/volume)Ordered By: Renard Burgos on 12-26-2022 Hemoglobin (Bld) [Mass/Vol] 14.0 g/dL 13.0-16.5 [facility] Blood lymphocytes/100 leukoc ytesOrdered By: Renard Burgos on 12-26-2022 Lymphocytes/100 WBC (Bld) 20.2 % 19-41 [facility] Blood monocytes/100 leukocyt esOrdered By: Renard Burgos on 12-26-2022 Monocytes/100 WBC (Bld) 8.6 % 0-10 [facility] Blood platelet mean volumeOr dered By: Renard Burgos on 12-26-2022 Platelet mean volume (Bld) [Entitic vol] 10.8 fL 6.2-12.0 [facility] Determination of erythrocyte mean corpuscular volume (MCV)Ordered By: Renard Burgos on 12-26-2022 MCV (RBC) [Entitic vol] 93.2 fL 80-94 [facility] Hematocrit Auto (Bld) [Volum e fraction]Ordered By: Renard Burgos on 12-26-2022 Hematocrit (Bld) [Volume fraction] 42.7 % 40-54 [facility] - Hematology and Cell countsOrdered By: Renard Burgos on 12-26-2022 Erythrocyte distribution width (RBC) [Entitic vol] 42.5 fL 35.1-43.9 [facility] Erythrocyte distribution width (RBC) [Ratio] 12.5 % 11.6-14.6 [facility] Immature granulocytes/100 WBC (Bld) 0.400 % 0.0-0.9 [facility] Comment on above: IG% - Immature Granu locytes (promyelocytes, myelocytes and metamyelocytes) > 1% indicates that a LEFT SHIFT is Present. MCH (RBC) [Entitic mass] 30.6 pg 27.0-32.0 [facility] Nucleated RBC/100 WBC (Bld) [Ratio] 0 % 0-5 [facility] MCHC Auto (RBC) [Mass/Vol]Or dered By: Renard Burgos on 12-26-2022 MCHC (RBC) [Mass/Vol] 32.8 g/dL 32-36 [facility] Platelets bldOrdered By: Lyubov Burgos on 12-26-2022 Platelets (Bld) [#/Vol] 200 10*3/uL 150-450 [facility] Absolute lymphocyte countOrd ered By: Renard Burgos on 12-19-2022 Lymphocytes Auto (Unsp spec) [#/Vol] 2.24 10*3/uL 0.83-4.51 [facility] Basophil percentageOrdered B y: Renard Burgos on 12-19-2022 Basophils/100 WBC (Bld) 0.3 % 0-1 [facility] Eosinophils/100 WBC (Bld) 0.8 % 0-5 [facility] Neutrophils (Bld) [#/Vol] 5.7 10*3/uL 2.0-7.7 [facility] Neutrophils/100 WBC (Bld) 64.1 % 47-70 [facility] WBC (Bld) [#/Vol] 8.9 10*3/uL 4.4-11.0 [facility] Blood erythrocytes count (nu mber/volume)Ordered By: Renard Burgos on 12-19-2022 RBC (Bld) [#/Vol] 4.44 10*6/uL 4.6-6.2 [facility] Blood hemoglobin measurement (mass/volume)Ordered By: Renard Burgos on 12-19-2022 Hemoglobin (Bld) [Mass/Vol] 13.5 g/dL 13.0-16.5 [facility] Blood lymphocytes/100 leukoc ytesOrdered By: Renard Burgos on 12-19-2022 Lymphocytes/100 WBC (Bld) 25.1 % 19-41 [facility] Blood monocytes/100 leukocyt esOrdered By: Renard Burgos on 12-19-2022 Monocytes/100 WBC (Bld) 9.4 % 0-10 [facility] Blood platelet mean volumeOr dered By: Renard Burgos on 12-19-2022 Platelet mean volume (Bld) [Entitic vol] 11.0 fL 6.2-12.0 [facility] Determination of erythrocyte mean corpuscular volume (MCV)Ordered By: Renard Burgos on 12-19-2022 MCV (RBC) [Entitic vol] 92.8 fL 80-94 [facility] Hematocrit Auto (Bld) [Volum e fraction]Ordered By: Renard Burgos on 12-19-2022 Hematocrit (Bld) [Volume fraction] 41.2 % 40-54 [facility] - Hematology and Cell countsOrdered By: Renard Burgos on 12-19-2022 Erythrocyte distribution width (RBC) [Entitic vol] 43.2 fL 35.1-43.9 [facility] Erythrocyte distribution width (RBC) [Ratio] 12.7 % 11.6-14.6 [facility] Immature granulocytes/100 WBC (Bld) 0.300 % 0.0-0.9 [facility] Comment on above: IG% - Immature Granu locytes (promyelocytes, myelocytes and metamyelocytes) > 1% indicates that a LEFT SHIFT is Present. MCH (RBC) [Entitic mass] 30.4 pg 27.0-32.0 [facility] Nucleated RBC/100 WBC (Bld) [Ratio] 0 % 0-5 [facility] MCHC Auto (RBC) [Mass/Vol]Or dered By: Renard Burgos on 12-19-2022 MCHC (RBC) [Mass/Vol] 32.8 g/dL 32-36 [facility] Platelets bldOrdered By: Lyubov Burgos on 12-19-2022 Platelets (Bld) [#/Vol] 194 10*3/uL 150-450 [facility] Absolute lymphocyte countOrd ered By: Renard Burgos on 12-12-2022 Lymphocytes Auto (Unsp spec) [#/Vol] 2.33 10*3/uL 0.83-4.51 [facility] Basophil percentageOrdered B y: Renard Burgos on 12-12-2022 Basophils/100 WBC (Bld) 0.6 % 0-1 [facility] Eosinophils/100 WBC (Bld) 0.9 % 0-5 [facility] Neutrophils (Bld) [#/Vol] 5.8 10*3/uL 2.0-7.7 [facility] Neutrophils/100 WBC (Bld) 63.5 % 47-70 [facility] WBC (Bld) [#/Vol] 9.1 10*3/uL 4.4-11.0 [facility] Blood erythrocytes count (nu mber/volume)Ordered By: Renard Burgos on 12-12-2022 RBC (Bld) [#/Vol] 4.52 10*6/uL 4.6-6.2 [facility] Blood hemoglobin measurement (mass/volume)Ordered By: Renard Burgos on 12-12-2022 Hemoglobin (Bld) [Mass/Vol] 13.9 g/dL 13.0-16.5 [facility] Blood lymphocytes/100 leukoc ytesOrdered By: Renard Burgos on 12-12-2022 Lymphocytes/100 WBC (Bld) 25.6 % 19-41 [facility] Blood monocytes/100 leukocyt esOrdered By: Renard Burgos on 12-12-2022 Monocytes/100 WBC (Bld) 9.1 % 0-10 [facility] Blood platelet mean volumeOr dered By: Renard Burgos on 12-12-2022 Platelet mean volume (Bld) [Entitic vol] 10.9 fL 6.2-12.0 [facility] Determination of erythrocyte mean corpuscular volume (MCV)Ordered By: Renard Burgos on 12-12-2022 MCV (RBC) [Entitic vol] 94.2 fL 80-94 [facility] Hematocrit Auto (Bld) [Volum e fraction]Ordered By: Renard Burgos on 12-12-2022 Hematocrit (Bld) [Volume fraction] 42.6 % 40-54 [facility] - Hematology and Cell countsOrdered By: Renard Burgos on 12-12-2022 Erythrocyte distribution width (RBC) [Entitic vol] 44.3 fL 35.1-43.9 [facility] Erythrocyte distribution width (RBC) [Ratio] 12.8 % 11.6-14.6 [facility] Immature granulocytes/100 WBC (Bld) 0.300 % 0.0-0.9 [facility] Comment on above: IG% - Immature Granu locytes (promyelocytes, myelocytes and metamyelocytes) > 1% indicates that a LEFT SHIFT is Present. MCH (RBC) [Entitic mass] 30.8 pg 27.0-32.0 [facility] Nucleated RBC/100 WBC (Bld) [Ratio] 0 % 0-5 [facility] MCHC Auto (RBC) [Mass/Vol]Or dered By: Renard Burgos on 12-12-2022 MCHC (RBC) [Mass/Vol] 32.6 g/dL 32-36 [facility] Platelets bldOrdered By: [facility] lizy Burgos on 12-12-2022 Platelets (Bld) [#/Vol] 211 10*3/uL 150-450 [facility] Absolute lymphocyte countOrd ered By: Renard Burgos on 12-05-2022 Lymphocytes Auto (Unsp spec) [#/Vol] 1.94 10*3/uL 0.83-4.51 [facility] Basophil percentageOrdered B y: Renard Burgos on 12-05-2022 Basophils/100 WBC (Bld) 0.4 % 0-1 [facility] Eosinophils/100 WBC (Bld) 0.9 % 0-5 [facility] Neutrophils (Bld) [#/Vol] 4.1 10*3/uL 2.0-7.7 [facility] Neutrophils/100 WBC (Bld) 61.2 % 47-70 [facility] WBC (Bld) [#/Vol] 6.7 10*3/uL 4.4-11.0 [facility] Blood erythrocytes count (nu mber/volume)Ordered By: Renard Burgos on 12-05-2022 RBC (Bld) [#/Vol] 4.39 10*6/uL 4.6-6.2 [facility] Blood hemoglobin measurement (mass/volume)Ordered By: Renard Burgos on 12-05-2022 Hemoglobin (Bld) [Mass/Vol] 13.3 g/dL 13.0-16.5 [facility] Blood lymphocytes/100 leukoc ytesOrdered By: Renard Burgos on 12-05-2022 Lymphocytes/100 WBC (Bld) 28.8 % 19-41 [facility] Blood monocytes/100 leukocyt esOrdered By: Renard Burgos on 12-05-2022 Monocytes/100 WBC (Bld) 8.3 % 0-10 [facility] Blood platelet mean volumeOr dered By: Renard Burgos on 12-05-2022 Platelet mean volume (Bld) [Entitic vol] 10.8 fL 6.2-12.0 [facility] Determination of erythrocyte mean corpuscular volume (MCV)Ordered By: Renard Burgos on 12-05-2022 MCV (RBC) [Entitic vol] 90.7 fL 80-94 [facility] Hematocrit Auto (Bld) [Volum e fraction]Ordered By: Renard Burgos on 12-05-2022 Hematocrit (Bld) [Volume fraction] 39.8 % 40-54 [facility] - Hematology and Cell countsOrdered By: Renard Burgos on 12-05-2022 Erythrocyte distribution width (RBC) [Entitic vol] 41.8 fL 35.1-43.9 [facility] Erythrocyte distribution width (RBC) [Ratio] 12.6 % 11.6-14.6 [facility] Immature granulocytes/100 WBC (Bld) 0.400 % 0.0-0.9 [facility] Comment on above: IG% - Immature Granu locytes (promyelocytes, myelocytes and metamyelocytes) > 1% indicates that a LEFT SHIFT is Present. MCH (RBC) [Entitic mass] 30.3 pg 27.0-32.0 [facility] Nucleated RBC/100 WBC (Bld) [Ratio] 0 % 0-5 [facility] MCHC Auto (RBC) [Mass/Vol]Or dered By: Renard Burgos on 12-05-2022 MCHC (RBC) [Mass/Vol] 33.4 g/dL 32-36 [facility] Platelets bldOrdered By: Lyubov Burgos on 12-05-2022 Platelets (Bld) [#/Vol] 208 10*3/uL 150-450 [facility] Absolute lymphocyte countOrd ered By: Renard Burgos on 11-28-2022 Lymphocytes Auto (Unsp spec) [#/Vol] 2.07 10*3/uL 0.83-4.51 [facility] Basophil percentageOrdered B y: Renard Burgos on 11-28-2022 Basophils/100 WBC (Bld) 0.4 % 0-1 [facility] Eosinophils/100 WBC (Bld) 0.6 % 0-5 [facility] Neutrophils (Bld) [#/Vol] 5.1 10*3/uL 2.0-7.7 [facility] Neutrophils/100 WBC (Bld) 64.6 % 47-70 [facility] WBC (Bld) [#/Vol] 7.9 10*3/uL 4.4-11.0 [facility] Blood erythrocytes count (nu mber/volume)Ordered By: Renard Burgos on 11-28-2022 RBC (Bld) [#/Vol] 4.54 10*6/uL 4.6-6.2 [facility] Blood hemoglobin measurement (mass/volume)Ordered By: Renard Burgos on 11-28-2022 Hemoglobin (Bld) [Mass/Vol] 13.7 g/dL 13.0-16.5 [facility] Blood lymphocytes/100 leukoc ytesOrdered By: Renard Burgos on 11-28-2022 Lymphocytes/100 WBC (Bld) 26.2 % 19-41 [facility] Blood monocytes/100 leukocyt esOrdered By: Renard Burgos on 11-28-2022 Monocytes/100 WBC (Bld) 7.7 % 0-10 [facility] Blood platelet mean volumeOr dered By: Renard Burgos on 11-28-2022 Platelet mean volume (Bld) [Entitic vol] 10.6 fL 6.2-12.0 [facility] Determination of erythrocyte mean corpuscular volume (MCV)Ordered By: Renard Burgos on 11-28-2022 MCV (RBC) [Entitic vol] 93.6 fL 80-94 [facility] Hematocrit Auto (Bld) [Volum e fraction]Ordered By: Renard Burgos on 11-28-2022 Hematocrit (Bld) [Volume fraction] 42.5 % 40-54 [facility] - Hematology and Cell countsOrdered By: Renard Burgos on 11-28-2022 Erythrocyte distribution width (RBC) [Entitic vol] 43.5 fL 35.1-43.9 [facility] Erythrocyte distribution width (RBC) [Ratio] 12.7 % 11.6-14.6 [facility] Immature granulocytes/100 WBC (Bld) 0.500 % 0.0-0.9 [facility] Comment on above: IG% - Immature Granu locytes (promyelocytes, myelocytes and metamyelocytes) > 1% indicates that a LEFT SHIFT is Present. MCH (RBC) [Entitic mass] 30.2 pg 27.0-32.0 [facility] Nucleated RBC/100 WBC (Bld) [Ratio] 0 % 0-5 [facility] MCHC Auto (RBC) [Mass/Vol]Or dered By: Renard Burgos on 11-28-2022 MCHC (RBC) [Mass/Vol] 32.2 g/dL 32-36 [facility] Platelets bldOrdered By: Lyubov Burgos on 11-28-2022 Platelets (Bld) [#/Vol] 201 10*3/uL 150-450 [facility] Absolute lymphocyte countOrd ered By: Renard Burgos on 11-21-2022 Lymphocytes Auto (Unsp spec) [#/Vol] 2.32 10*3/uL 0.83-4.51 [facility] Basophil percentageOrdered B y: Renard Burgos on 11-21-2022 Basophils/100 WBC (Bld) 0.6 % 0-1 [facility] Eosinophils/100 WBC (Bld) 0.7 % 0-5 [facility] Neutrophils (Bld) [#/Vol] 5.0 10*3/uL 2.0-7.7 [facility] Neutrophils/100 WBC (Bld) 60.6 % 47-70 [facility] WBC (Bld) [#/Vol] 8.2 10*3/uL 4.4-11.0 [facility] Blood erythrocytes count (nu mber/volume)Ordered By: Renard Burgos on 11-21-2022 RBC (Bld) [#/Vol] 4.71 10*6/uL 4.6-6.2 [facility] Blood hemoglobin measurement (mass/volume)Ordered By: Renard Burgos on 11-21-2022 Hemoglobin (Bld) [Mass/Vol] 14.3 g/dL 13.0-16.5 [facility] Blood lymphocytes/100 leukoc ytesOrdered By: Renard Burgos on 11-21-2022 Lymphocytes/100 WBC (Bld) 28.2 % 19-41 [facility] Blood monocytes/100 leukocyt esOrdered By: Renard Burgos on 11-21-2022 Monocytes/100 WBC (Bld) 9.2 % 0-10 [facility] Blood platelet mean volumeOr dered By: Renard Burgos on 11-21-2022 Platelet mean volume (Bld) [Entitic vol] 10.4 fL 6.2-12.0 [facility] Determination of erythrocyte mean corpuscular volume (MCV)Ordered By: Renard Burgos on 11-21-2022 MCV (RBC) [Entitic vol] 91.9 fL 80-94 [facility] Hematocrit Auto (Bld) [Volum e fraction]Ordered By: Renard Burgos on 11-21-2022 Hematocrit (Bld) [Volume fraction] 43.3 % 40-54 [facility] - Hematology and Cell countsOrdered By: Renard Burgos on 11-21-2022 Erythrocyte distribution width (RBC) [Entitic vol] 43.1 fL 35.1-43.9 [facility] Erythrocyte distribution width (RBC) [Ratio] 12.8 % 11.6-14.6 [facility] Immature granulocytes/100 WBC (Bld) 0.700 % 0.0-0.9 [facility] Comment on above: IG% - Immature Granu locytes (promyelocytes, myelocytes and metamyelocytes) > 1% indicates that a LEFT SHIFT is Present. MCH (RBC) [Entitic mass] 30.4 pg 27.0-32.0 [facility] Nucleated RBC/100 WBC (Bld) [Ratio] 0 % 0-5 [facility] MCHC Auto (RBC) [Mass/Vol]Or dered By: Renard Burgos on 11-21-2022 MCHC (RBC) [Mass/Vol] 33.0 g/dL 32-36 [facility] Platelets bldOrdered By: Lyubov Burgos on 11-21-2022 Platelets (Bld) [#/Vol] 219 10*3/uL 150-450 [facility] Absolute lymphocyte countOrd ered By: Renard Burgos on 11-14-2022 Lymphocytes Auto (Unsp spec) [#/Vol] 1.82 10*3/uL 0.83-4.51 [facility] Basophil percentageOrdered B y: Renard Burgos on 11-14-2022 Basophils/100 WBC (Bld) 0.4 % 0-1 [facility] Chloride [Moles/Vol] 107 mmol/L 98-107 [facility] Eosinophils/100 WBC (Bld) 0.4 % 0-5 [facility] Glucose [Mass/Vol] 121 mg/dL 74-106 [facility] Comment on above: Fasting Glucose resu lt from 100 to 125 mg/dL suggests IMPAIRED HOMEOSTASIS per A.D.A. criteria. Neutrophils (Bld) [#/Vol] 4.7 10*3/uL 2.0-7.7 [facility] Neutrophils/100 WBC (Bld) 66.6 % 47-70 [facility] Potassium [Moles/Vol] 3.7 mmol/L 3.5-5.1 [facility] Sodium [Moles/Vol] 141 mmol/L 136-145 [facility] WBC (Bld) [#/Vol] 7.1 10*3/uL 4.4-11.0 [facility] Blood erythrocytes count (nu mber/volume)Ordered By: Renard Burgos on 11-14-2022 RBC (Bld) [#/Vol] 4.35 10*6/uL 4.6-6.2 [facility] Blood hemoglobin measurement (mass/volume)Ordered By: Renard Burgos on 11-14-2022 Hemoglobin (Bld) [Mass/Vol] 13.6 g/dL 13.0-16.5 [facility] Blood lymphocytes/100 leukoc ytesOrdered By: Renard Burgos on 11-14-2022 Lymphocytes/100 WBC (Bld) 25.6 % 19-41 [facility] Blood monocytes/100 leukocyt esOrdered By: Renard Burgos on 11-14-2022 Monocytes/100 WBC (Bld) 6.6 % 0-10 [facility] Blood platelet mean volumeOr dered By: Renard Burgos on 11-14-2022 Platelet mean volume (Bld) [Entitic vol] 10.9 fL 6.2-12.0 [facility] Determination of erythrocyte mean corpuscular volume (MCV)Ordered By: Renard Burgos on 11-14-2022 MCV (RBC) [Entitic vol] 93.3 fL 80-94 [facility] Hematocrit Auto (Bld) [Volum e fraction]Ordered By: Renard Burgos on 11-14-2022 Hematocrit (Bld) [Volume fraction] 40.6 % 40-54 [facility] - Chemistry and C hemistry - challengeOrdered By: Renard Burgos on 11-14-2022 CO2 [Moles/Vol] 31.0 mmol/L 21.0-32.0 [facility] Urea nitrogen/Creatinine [Mass ratio] 26.0 mg/mg 10-20 [facility] - Hematology and Cell countsOrdered By: Renard Burgos on 11-14-2022 Erythrocyte distribution width (RBC) [Entitic vol] 43.9 fL 35.1-43.9 [facility] Erythrocyte distribution width (RBC) [Ratio] 12.8 % 11.6-14.6 [facility] Immature granulocytes/100 WBC (Bld) 0.400 % 0.0-0.9 [facility] Comment on above: IG% - Immature Granu locytes (promyelocytes, myelocytes and metamyelocytes) > 1% indicates that a LEFT SHIFT is Present. MCH (RBC) [Entitic mass] 31.3 pg 27.0-32.0 [facility] Nucleated RBC/100 WBC (Bld) [Ratio] 0 % 0-5 [facility] MCHC Auto (RBC) [Mass/Vol]Or dered By: Renard Burgos on 11-14-2022 MCHC (RBC) [Mass/Vol] 33.5 g/dL 32-36 [facility] No Panel InformationOrdered By: Renard Burgos on 11-14-2022 Estimated GFR (MDRD) Amer 147 mL/min >60 [facility] Comment on above: GFR Calc Estimated GFR (MDRD) Non-Af Amer 122 mL/min >60 [facility] Comment on above: Non- GFR Calc Platelets bldOrdered By: Lyubov Burgso on 11-14-2022 Platelets (Bld) [#/Vol] 202 10*3/uL 150-450 [facility] Serum or plasma calcium gordy urement (mass/volume)Ordered By: Renard Burgos on 11-14-2022 Calcium [Mass/Vol] 8.2 mg/dL 8.5-10.1 [facility] Serum or plasma creatinine m easurement (mass/volume)Ordered By: Renard Burgos on 11-14-2022 Creatinine [Mass/Vol] 0.69 mg/dL 0.70-1.30 [facility] Comment on above: The validity of the calculated GFR & GFRAA in patients over 70 years has not been determined. Clinical correlation is essential. Serum or plasma urea nitroge n measurement (mass/volume)Ordered By: Renard Burgos on 11-14-2022 Urea nitrogen [Mass/Vol] 18 mg/dL 7-18 [facility] Thin prep Papanicolaou smear with manual screeningOrdered By: Renard Burgos on 11-14-2022 Thin prep Papanicolaou smear with manual screening 3 5-15 [facility] Absolute lymphocyte countOrd ered By: Renard Burgos on 11-07-2022 Lymphocytes Auto (Unsp spec) [#/Vol] 1.99 10*3/uL 0.83-4.51 [facility] Basophil percentageOrdered B y: Renard Burgos on 11-07-2022 Basophils/100 WBC (Bld) 0.8 % 0-1 [facility] Eosinophils/100 WBC (Bld) 0.5 % 0-5 [facility] Neutrophils (Bld) [#/Vol] 5.1 10*3/uL 2.0-7.7 [facility] Neutrophils/100 WBC (Bld) 64.0 % 47-70 [facility] WBC (Bld) [#/Vol] 8.0 10*3/uL 4.4-11.0 [facility] Blood erythrocytes count (nu mber/volume)Ordered By: Renard Burgos on 11-07-2022 RBC (Bld) [#/Vol] 4.45 10*6/uL 4.6-6.2 [facility] Blood hemoglobin measurement (mass/volume)Ordered By: Renard Burgos on 11-07-2022 Hemoglobin (Bld) [Mass/Vol] 13.7 g/dL 13.0-16.5 [facility] Blood lymphocytes/100 leukoc ytesOrdered By: Renard Burgos on 11-07-2022 Lymphocytes/100 WBC (Bld) 25.0 % 19-41 [facility] Blood monocytes/100 leukocyt esOrdered By: Renard Burgos on 11-07-2022 Monocytes/100 WBC (Bld) 9.4 % 0-10 [facility] Blood platelet mean volumeOr dered By: Renard Burgos on 11-07-2022 Platelet mean volume (Bld) [Entitic vol] 10.7 fL 6.2-12.0 [facility] Determination of erythrocyte mean corpuscular volume (MCV)Ordered By: Renard Burgos on 11-07-2022 MCV (RBC) [Entitic vol] 91.5 fL 80-94 [facility] Hematocrit Auto (Bld) [Volum e fraction]Ordered By: Renard Burgos on 11-07-2022 Hematocrit (Bld) [Volume fraction] 40.7 % 40-54 [facility] - Hematology and Cell countsOrdered By: Renard Burgos on 11-07-2022 Erythrocyte distribution width (RBC) [Entitic vol] 42.4 fL 35.1-43.9 [facility] Erythrocyte distribution width (RBC) [Ratio] 12.8 % 11.6-14.6 [facility] Immature granulocytes/100 WBC (Bld) 0.300 % 0.0-0.9 [facility] Comment on above: IG% - Immature Granu locytes (promyelocytes, myelocytes and metamyelocytes) > 1% indicates that a LEFT SHIFT is Present. MCH (RBC) [Entitic mass] 30.8 pg 27.0-32.0 [facility] Nucleated RBC/100 WBC (Bld) [Ratio] 0 % 0-5 [facility] MCHC Auto (RBC) [Mass/Vol]Or dered By: Renard Burgos on 11-07-2022 MCHC (RBC) [Mass/Vol] 33.7 g/dL 32-36 [facility] Platelets bldOrdered By: Lyubov Burgos on 11-07-2022 Platelets (Bld) [#/Vol] 220 10*3/uL 150-450 [facility] Absolute lymphocyte countOrd ered By: Renard Burgos on 10-31-2022 Lymphocytes Auto (Unsp spec) [#/Vol] 1.97 10*3/uL 0.83-4.51 [facility] Basophil percentageOrdered B y: Renard Burgos on 10-31-2022 Basophils/100 WBC (Bld) 0.5 % 0-1 [facility] Eosinophils/100 WBC (Bld) 0.6 % 0-5 [facility] Neutrophils (Bld) [#/Vol] 6.7 10*3/uL 2.0-7.7 [facility] Neutrophils/100 WBC (Bld) 69.9 % 47-70 [facility] WBC (Bld) [#/Vol] 9.6 10*3/uL 4.4-11.0 [facility] Blood erythrocytes count (nu mber/volume)Ordered By: Renard Burgos on 10-31-2022 RBC (Bld) [#/Vol] 4.47 10*6/uL 4.6-6.2 [facility] Blood hemoglobin measurement (mass/volume)Ordered By: Renard Burgos on 10-31-2022 Hemoglobin (Bld) [Mass/Vol] 13.5 g/dL 13.0-16.5 [facility] Blood lymphocytes/100 leukoc ytesOrdered By: Renard Burgos on 10-31-2022 Lymphocytes/100 WBC (Bld) 20.5 % 19-41 [facility] Blood monocytes/100 leukocyt esOrdered By: Renard Burgos on 10-31-2022 Monocytes/100 WBC (Bld) 7.9 % 0-10 [facility] Blood platelet mean volumeOr dered By: Renard Burgos on 10-31-2022 Platelet mean volume (Bld) [Entitic vol] 11.1 fL 6.2-12.0 [facility] Determination of erythrocyte mean corpuscular volume (MCV)Ordered By: Renard Burgos on 10-31-2022 MCV (RBC) [Entitic vol] 92.4 fL 80-94 [facility] Hematocrit Auto (Bld) [Volum e fraction]Ordered By: Renard Burgos on 10-31-2022 Hematocrit (Bld) [Volume fraction] 41.3 % 40-54 [facility] - Hematology and Cell countsOrdered By: Renard Burgos on 10-31-2022 Erythrocyte distribution width (RBC) [Entitic vol] 42.9 fL 35.1-43.9 [facility] Erythrocyte distribution width (RBC) [Ratio] 12.7 % 11.6-14.6 [facility] Immature granulocytes/100 WBC (Bld) 0.600 % 0.0-0.9 [facility] Comment on above: IG% - Immature Granu locytes (promyelocytes, myelocytes and metamyelocytes) > 1% indicates that a LEFT SHIFT is Present. MCH (RBC) [Entitic mass] 30.2 pg 27.0-32.0 [facility] Nucleated RBC/100 WBC (Bld) [Ratio] 0 % 0-5 [facility] MCHC Auto (RBC) [Mass/Vol]Or dered By: Renard Burgos on 10-31-2022 MCHC (RBC) [Mass/Vol] 32.7 g/dL 32-36 [facility] Platelets bldOrdered By: Lyubov Burgos on 10-31-2022 Platelets (Bld) [#/Vol] 221 10*3/uL 150-450 [facility] Absolute lymphocyte countOrd ered By: Renard Burgos on 10-24-2022 Lymphocytes Auto (Unsp spec) [#/Vol] 1.96 10*3/uL 0.83-4.51 [facility] Basophil percentageOrdered B y: Renard Burgos on 10-24-2022 Basophils/100 WBC (Bld) 0.4 % 0-1 [facility] Eosinophils/100 WBC (Bld) 0.7 % 0-5 [facility] Neutrophils (Bld) [#/Vol] 4.5 10*3/uL 2.0-7.7 [facility] Neutrophils/100 WBC (Bld) 61.9 % 47-70 [facility] WBC (Bld) [#/Vol] 7.3 10*3/uL 4.4-11.0 [facility] Blood erythrocytes count (nu mber/volume)Ordered By: Renard Burgos on 10-24-2022 RBC (Bld) [#/Vol] 4.41 10*6/uL 4.6-6.2 [facility] Blood hemoglobin measurement (mass/volume)Ordered By: Renard Burgos on 10-24-2022 Hemoglobin (Bld) [Mass/Vol] 13.2 g/dL 13.0-16.5 [facility] Blood lymphocytes/100 leukoc ytesOrdered By: Renard Burgos on 10-24-2022 Lymphocytes/100 WBC (Bld) 27.0 % 19-41 [facility] Blood monocytes/100 leukocyt esOrdered By: Renard Burgos on 10-24-2022 Monocytes/100 WBC (Bld) 9.4 % 0-10 [facility] Blood platelet mean volumeOr dered By: Renard Burgos on 10-24-2022 Platelet mean volume (Bld) [Entitic vol] 10.9 fL 6.2-12.0 [facility] Determination of erythrocyte mean corpuscular volume (MCV)Ordered By: Renard Burgos on 10-24-2022 MCV (RBC) [Entitic vol] 92.1 fL 80-94 [facility] Hematocrit Auto (Bld) [Volum e fraction]Ordered By: Renard Burgos on 10-24-2022 Hematocrit (Bld) [Volume fraction] 40.6 % 40-54 [facility] - Hematology and Cell countsOrdered By: Renard Burgos on 10-24-2022 Erythrocyte distribution width (RBC) [Entitic vol] 42.8 fL 35.1-43.9 [facility] Erythrocyte distribution width (RBC) [Ratio] 12.8 % 11.6-14.6 [facility] Immature granulocytes/100 WBC (Bld) 0.600 % 0.0-0.9 [facility] Comment on above: IG% - Immature Granu locytes (promyelocytes, myelocytes and metamyelocytes) > 1% indicates that a LEFT SHIFT is Present. MCH (RBC) [Entitic mass] 29.9 pg 27.0-32.0 [facility] Nucleated RBC/100 WBC (Bld) [Ratio] 0 % 0-5 [facility] MCHC Auto (RBC) [Mass/Vol]Or dered By: Renard Burgos on 10-24-2022 MCHC (RBC) [Mass/Vol] 32.5 g/dL 32-36 [facility] Platelets bldOrdered By: Lyubov Burgos on 10-24-2022 Platelets (Bld) [#/Vol] 213 10*3/uL 150-450 [facility] Absolute lymphocyte countOrd ered By: Renard Burgos on 10-17-2022 Lymphocytes Auto (Unsp spec) [#/Vol] 2.05 10*3/uL 0.83-4.51 [facility] Basophil percentageOrdered B y: Renard Burgos on 10-17-2022 Basophils/100 WBC (Bld) 0.4 % 0-1 [facility] Eosinophils/100 WBC (Bld) 0.5 % 0-5 [facility] Neutrophils (Bld) [#/Vol] 6.7 10*3/uL 2.0-7.7 [facility] Neutrophils/100 WBC (Bld) 70.9 % 47-70 [facility] WBC (Bld) [#/Vol] 9.4 10*3/uL 4.4-11.0 [facility] Blood erythrocytes count (nu mber/volume)Ordered By: Renard Burgos on 10-17-2022 RBC (Bld) [#/Vol] 4.33 10*6/uL 4.6-6.2 [facility] Blood hemoglobin measurement (mass/volume)Ordered By: Renard Burgos on 10-17-2022 Hemoglobin (Bld) [Mass/Vol] 13.3 g/dL 13.0-16.5 [facility] Blood lymphocytes/100 leukoc ytesOrdered By: Renard Burgos on 10-17-2022 Lymphocytes/100 WBC (Bld) 21.7 % 19-41 [facility] Blood monocytes/100 leukocyt esOrdered By: Renard Burgos on 10-17-2022 Monocytes/100 WBC (Bld) 6.1 % 0-10 [facility] Blood platelet mean volumeOr dered By: Renard Burgos on 10-17-2022 Platelet mean volume (Bld) [Entitic vol] 10.9 fL 6.2-12.0 [facility] Determination of erythrocyte mean corpuscular volume (MCV)Ordered By: Renard Burgos on 10-17-2022 MCV (RBC) [Entitic vol] 93.8 fL 80-94 [facility] Hematocrit Auto (Bld) [Volum e fraction]Ordered By: Renard Burgos on 10-17-2022 Hematocrit (Bld) [Volume fraction] 40.6 % 40-54 [facility] - Hematology and Cell countsOrdered By: Renard Burgos on 10-17-2022 Erythrocyte distribution width (RBC) [Entitic vol] 42.7 fL 35.1-43.9 [facility] Erythrocyte distribution width (RBC) [Ratio] 12.4 % 11.6-14.6 [facility] Immature granulocytes/100 WBC (Bld) 0.400 % 0.0-0.9 [facility] Comment on above: IG% - Immature Granu locytes (promyelocytes, myelocytes and metamyelocytes) > 1% indicates that a LEFT SHIFT is Present. MCH (RBC) [Entitic mass] 30.7 pg 27.0-32.0 [facility] Nucleated RBC/100 WBC (Bld) [Ratio] 0 % 0-5 [facility] MCHC Auto (RBC) [Mass/Vol]Or dered By: Renard Burgos on 10-17-2022 MCHC (RBC) [Mass/Vol] 32.8 g/dL 32-36 [facility] Platelets bldOrdered By: Lyubov Burgos on 10-17-2022 Platelets (Bld) [#/Vol] 186 10*3/uL 150-450 [facility] Absolute lymphocyte countOrd ered By: Renard Burgos on 10-10-2022 Lymphocytes Auto (Unsp spec) [#/Vol] 2.21 10*3/uL 0.83-4.51 [facility] Basophil percentageOrdered B y: Renard Burgos on 10-10-2022 Basophils/100 WBC (Bld) 0.6 % 0-1 [facility] Eosinophils/100 WBC (Bld) 0.6 % 0-5 [facility] Neutrophils (Bld) [#/Vol] 4.7 10*3/uL 2.0-7.7 [facility] Neutrophils/100 WBC (Bld) 59.6 % 47-70 [facility] WBC (Bld) [#/Vol] 7.9 10*3/uL 4.4-11.0 [facility] Blood erythrocytes count (nu mber/volume)Ordered By: Renard Burgos on 10-10-2022 RBC (Bld) [#/Vol] 4.78 10*6/uL 4.6-6.2 [facility] Blood hemoglobin measurement (mass/volume)Ordered By: Renard Burgos on 10-10-2022 Hemoglobin (Bld) [Mass/Vol] 14.4 g/dL 13.0-16.5 [facility] Blood lymphocytes/100 leukoc ytesOrdered By: Renard Burgos on 10-10-2022 Lymphocytes/100 WBC (Bld) 28.0 % 19-41 [facility] Blood monocytes/100 leukocyt esOrdered By: Renard Burgos on 10-10-2022 Monocytes/100 WBC (Bld) 10.8 % 0-10 [facility] Blood platelet mean volumeOr dered By: Renard Burgos on 10-10-2022 Platelet mean volume (Bld) [Entitic vol] 10.7 fL 6.2-12.0 [facility] Determination of erythrocyte mean corpuscular volume (MCV)Ordered By: Renard Burgos on 10-10-2022 MCV (RBC) [Entitic vol] 94.8 fL 80-94 [facility] Hematocrit Auto (Bld) [Volum e fraction]Ordered By: Renard Burgos on 10-10-2022 Hematocrit (Bld) [Volume fraction] 45.3 % 40-54 [facility] - Hematology and Cell countsOrdered By: Renard Burgos on 10-10-2022 Erythrocyte distribution width (RBC) [Entitic vol] 43.8 fL 35.1-43.9 [facility] Erythrocyte distribution width (RBC) [Ratio] 12.6 % 11.6-14.6 [facility] Immature granulocytes/100 WBC (Bld) 0.400 % 0.0-0.9 [facility] Comment on above: IG% - Immature Granu locytes (promyelocytes, myelocytes and metamyelocytes) > 1% indicates that a LEFT SHIFT is Present. MCH (RBC) [Entitic mass] 30.1 pg 27.0-32.0 [facility] Nucleated RBC/100 WBC (Bld) [Ratio] 0 % 0-5 [facility] MCHC Auto (RBC) [Mass/Vol]Or dered By: Renard Burgos on 10-10-2022 MCHC (RBC) [Mass/Vol] 31.8 g/dL 32-36 [facility] Platelets bldOrdered By: Lyubov Burgos on 10-10-2022 Platelets (Bld) [#/Vol] 198 10*3/uL 150-450 [facility] Absolute lymphocyte countOrd ered By: Renard Burgos on 10-03-2022 Lymphocytes Auto (Unsp spec) [#/Vol] 2.00 10*3/uL 0.83-4.51 [facility] Basophil percentageOrdered B y: Renard Burgos on 10-03-2022 Basophils/100 WBC (Bld) 0.6 % 0-1 [facility] Bilirubin [Mass/Vol] 0.30 mg/dL 0.20-1.00 [facility] Comment on above: For patients on eltr ombopag therapy, use of Dimension [place] TBIL is not recommended. Chloride [Moles/Vol] 109 mmol/L 98-107 [facility] Cholesterol [Mass/Vol] 129 mg/dL <200 [facility] Comment on above: <200 mg/dL Desirable 200-240 mg/dL Borderline >240 mg/dL High Risk Eosinophils/100 WBC (Bld) 0.8 % 0-5 [facility] Glucose [Mass/Vol] 82 mg/dL 74-106 [facility] Neutrophils (Bld) [#/Vol] 5.1 10*3/uL 2.0-7.7 [facility] Neutrophils/100 WBC (Bld) 63.2 % 47-70 [facility] Potassium [Moles/Vol] 3.9 mmol/L 3.5-5.1 [facility] Protein [Mass/Vol] 6.1 g/dL 6.4-8.2 [facility] Sodium [Moles/Vol] 140 mmol/L 136-145 [facility] Triglyceride [Mass/Vol] 209 mg/dL <199 [facility] Comment on above: The drugs N-Acetylcy steine and Metamizole may falsely depress this assay.Serum Triglycerides Reference Interval Normal <150 mg/dL Borderline high 150 - 199 mg/dL High 200 - 499 mg/dL Very High > or = 500 mg/dL WBC (Bld) [#/Vol] 8.0 10*3/uL 4.4-11.0 [facility] Blood erythrocytes count (nu mber/volume)Ordered By: Renard Burgos on 10-03-2022 RBC (Bld) [#/Vol] 4.58 10*6/uL 4.6-6.2 [facility] Blood hemoglobin measurement (mass/volume)Ordered By: Renard Burgos on 10-03-2022 Hemoglobin (Bld) [Mass/Vol] 13.9 g/dL 13.0-16.5 [facility] Blood lymphocytes/100 leukoc ytesOrdered By: Renard Burgos on 10-03-2022 Lymphocytes/100 WBC (Bld) 25.1 % 19-41 [facility] Blood monocytes/100 leukocyt esOrdered By: Renard Burgos on 10-03-2022 Monocytes/100 WBC (Bld) 10.0 % 0-10 [facility] Blood platelet mean volumeOr dered By: Renard Burgos on 10-03-2022 Platelet mean volume (Bld) [Entitic vol] 11.1 fL 6.2-12.0 [facility] Determination of erythrocyte mean corpuscular volume (MCV)Ordered By: Renard Burgos on 10-03-2022 MCV (RBC) [Entitic vol] 93.9 fL 80-94 [facility] Hematocrit Auto (Bld) [Volum e fraction]Ordered By: Renard Burgos on 10-03-2022 Hematocrit (Bld) [Volume fraction] 43.0 % 40-54 [facility] - Chemistry and C hemistry - challengeOrdered By: Renard Burgos on 10-03-2022 ALP [Catalytic activity/Vol] 98 U/L 45-117 [facility] ALT [Catalytic activity/Vol] 19 U/L 16-61 [facility] CO2 [Moles/Vol] 31.0 mmol/L 21.0-32.0 [facility] Globulin (S) [Mass/Vol] 3.1 g/dL 2.2-4.2 [facility] Urea nitrogen/Creatinine [Mass ratio] 25.6 mg/mg 10-20 [facility] - Hematology and Cell countsOrdered By: Rneard Burgos on 10-03-2022 Erythrocyte distribution width (RBC) [Entitic vol] 43.8 fL 35.1-43.9 [facility] Erythrocyte distribution width (RBC) [Ratio] 12.7 % 11.6-14.6 [facility] Immature granulocytes/100 WBC (Bld) 0.300 % 0.0-0.9 [facility] Comment on above: IG% - Immature Granu locytes (promyelocytes, myelocytes and metamyelocytes) > 1% indicates that a LEFT SHIFT is Present. MCH (RBC) [Entitic mass] 30.3 pg 27.0-32.0 [facility] Nucleated RBC/100 WBC (Bld) [Ratio] 0 % 0-5 [facility] MCHC Auto (RBC) [Mass/Vol]Or dered By: Renard Burgos on 10-03-2022 MCHC (RBC) [Mass/Vol] 32.3 g/dL 32-36 [facility] No Panel InformationOrdered By: Renard Burgos on 10-03-2022 Estimated GFR (MDRD) Amer 165 mL/min >60 [facility] Comment on above: GFR Calc Estimated GFR (MDRD) Non-Af Amer 137 mL/min >60 [facility] Comment on above: Non- GFR Calc Platelets bldOrdered By: Lyubov Burgos on 10-03-2022 Platelets (Bld) [#/Vol] 204 10*3/uL 150-450 [facility] Serum or plasma albumin gordy urement (mass/volume)Ordered By: Renard Burgos on 10-03-2022 Albumin [Mass/Vol] 3.0 g/dL 3.2-5.0 [facility] Serum or plasma albumin/glob ulin mass ratioOrdered By: Renard Burgos on 10-03-2022 Albumin/Globulin [Mass ratio] 1.0 {ratio} 0.9-2.4 [facility] Serum or plasma calcium gordy urement (mass/volume)Ordered By: Renard Burgos on 10-03-2022 Calcium [Mass/Vol] 8.4 mg/dL 8.5-10.1 [facility] Serum or plasma cholesterol in HDL measurement (mass/volume)Ordered By: Renard Burgos on 10-03-2022 Cholesterol in HDL [Mass/Vol] 29 mg/dL >40 [facility] Comment on above: The drugs N-Acetylcy steine and Metamizole may falsely depress this assay. Reference Range HDL <40 mg/dL Low HDL Cholesterol HDL >or= 60 mg/dL High HDL Cholesterol Serum or plasma cholesterol in VLDL measurement (mass/volume)Ordered By: Renard Burgos on 10-03-2022 Cholesterol in VLDL [Mass/Vol] 42 mg/dL 5-40 [facility] Serum or plasma creatinine m easurement (mass/volume)Ordered By: Renard Burgos on 10-03-2022 Creatinine [Mass/Vol] 0.63 mg/dL 0.70-1.30 [facility] Comment on above: The validity of the calculated GFR & GFRAA in patients over 70 years has not been determined. Clinical correlation is essential. Serum or plasma low density lipoprotein (LDL) cholesterol measurement (mass/volume)Ordered By: Renard Burgos on 10-03-2022 Cholesterol in LDL [Mass/Vol] 58 mg/dL 0-130 [facility] Serum or plasma urea nitroge n measurement (mass/volume)Ordered By: Renard Burgos on 10-03-2022 Urea nitrogen [Mass/Vol] 16 mg/dL 7-18 [facility] Thin prep Papanicolaou smear with manual screeningOrdered By: Renard Burgos on 10-03-2022 Thin prep Papanicolaou smear with manual screening 13 U/L 15-37 [facility] Thin prep Papanicolaou smear with manual screening 0 5-15 [facility] Absolute lymphocyte countOrd ered By: Renard Burgos on 09-19-2022 Lymphocytes Auto (Unsp spec) [#/Vol] 1.59 10*3/uL 0.83-4.51 [facility] Basophil percentageOrdered B y: Renard Burgos on 09-19-2022 Basophils/100 WBC (Bld) 0.5 % 0-1 [facility] Eosinophils/100 WBC (Bld) 0.3 % 0-5 [facility] Neutrophils (Bld) [#/Vol] 7.4 10*3/uL 2.0-7.7 [facility] Neutrophils/100 WBC (Bld) 75.0 % 47-70 [facility] WBC (Bld) [#/Vol] 9.9 10*3/uL 4.4-11.0 [facility] Blood erythrocytes count (nu mber/volume)Ordered By: Renard Burgos on 09-19-2022 RBC (Bld) [#/Vol] 4.46 10*6/uL 4.6-6.2 [facility] Blood hemoglobin measurement (mass/volume)Ordered By: Renard Burgos on 09-19-2022 Hemoglobin (Bld) [Mass/Vol] 13.5 g/dL 13.0-16.5 [facility] Blood lymphocytes/100 leukoc ytesOrdered By: Renard Burgos on 09-19-2022 Lymphocytes/100 WBC (Bld) 16.1 % 19-41 [facility] Blood monocytes/100 leukocyt esOrdered By: Renard Burgos on 09-19-2022 Monocytes/100 WBC (Bld) 7.6 % 0-10 [facility] Blood platelet mean volumeOr dered By: Renard Burgos on 09-19-2022 Platelet mean volume (Bld) [Entitic vol] 10.8 fL 6.2-12.0 [facility] Determination of erythrocyte mean corpuscular volume (MCV)Ordered By: Renard Burgos on 09-19-2022 MCV (RBC) [Entitic vol] 92.2 fL 80-94 [facility] Hematocrit Auto (Bld) [Volum e fraction]Ordered By: Renard Burgos on 09-19-2022 Hematocrit (Bld) [Volume fraction] 41.1 % 40-54 [facility] - Hematology and Cell countsOrdered By: Renard Burgos on 09-19-2022 Erythrocyte distribution width (RBC) [Entitic vol] 41.2 fL 35.1-43.9 [facility] Erythrocyte distribution width (RBC) [Ratio] 12.3 % 11.6-14.6 [facility] Immature granulocytes/100 WBC (Bld) 0.500 % 0.0-0.9 [facility] Comment on above: IG% - Immature Granu locytes (promyelocytes, myelocytes and metamyelocytes) > 1% indicates that a LEFT SHIFT is Present. MCH (RBC) [Entitic mass] 30.3 pg 27.0-32.0 [facility] Nucleated RBC/100 WBC (Bld) [Ratio] 0 % 0-5 [facility] MCHC Auto (RBC) [Mass/Vol]Or dered By: Renard Burgos on 09-19-2022 MCHC (RBC) [Mass/Vol] 32.8 g/dL 32-36 [facility] Platelets bldOrdered By: Lyubov Burgos on 09-19-2022 Platelets (Bld) [#/Vol] 245 10*3/uL 150-450 [facility] Absolute lymphocyte countOrd ered By: Renard Burgos on 09-12-2022 Lymphocytes Auto (Unsp spec) [#/Vol] 2.11 10*3/uL 0.83-4.51 [facility] Basophil percentageOrdered B y: Renard Burgos on 09-12-2022 Basophils/100 WBC (Bld) 0.5 % 0-1 [facility] Eosinophils/100 WBC (Bld) 0.7 % 0-5 [facility] Neutrophils (Bld) [#/Vol] 4.7 10*3/uL 2.0-7.7 [facility] Neutrophils/100 WBC (Bld) 63.6 % 47-70 [facility] WBC (Bld) [#/Vol] 7.3 10*3/uL 4.4-11.0 [facility] Blood erythrocytes count (nu mber/volume)Ordered By: Renard Burgos on 09-12-2022 RBC (Bld) [#/Vol] 4.40 10*6/uL 4.6-6.2 [facility] Blood hemoglobin measurement (mass/volume)Ordered By: Renard Burgos on 09-12-2022 Hemoglobin (Bld) [Mass/Vol] 13.5 g/dL 13.0-16.5 [facility] Blood lymphocytes/100 leukoc ytesOrdered By: Renard Burgos on 09-12-2022 Lymphocytes/100 WBC (Bld) 28.8 % 19-41 [facility] Blood monocytes/100 leukocyt esOrdered By: Renard Burgos on 09-12-2022 Monocytes/100 WBC (Bld) 6.1 % 0-10 [facility] Blood platelet mean volumeOr dered By: Renard Brugos on 09-12-2022 Platelet mean volume (Bld) [Entitic vol] 10.7 fL 6.2-12.0 [facility] Determination of erythrocyte mean corpuscular volume (MCV)Ordered By: Renard Burgos on 09-12-2022 MCV (RBC) [Entitic vol] 91.4 fL 80-94 [facility] Hematocrit Auto (Bld) [Volum e fraction]Ordered By: Renard Burgos on 09-12-2022 Hematocrit (Bld) [Volume fraction] 40.2 % 40-54 [facility] - Hematology and Cell countsOrdered By: Renard Burgos on 09-12-2022 Erythrocyte distribution width (RBC) [Entitic vol] 41.3 fL 35.1-43.9 [facility] Erythrocyte distribution width (RBC) [Ratio] 12.5 % 11.6-14.6 [facility] Immature granulocytes/100 WBC (Bld) 0.300 % 0.0-0.9 [facility] Comment on above: IG% - Immature Granu locytes (promyelocytes, myelocytes and metamyelocytes) > 1% indicates that a LEFT SHIFT is Present. MCH (RBC) [Entitic mass] 30.7 pg 27.0-32.0 [facility] Nucleated RBC/100 WBC (Bld) [Ratio] 0 % 0-5 [facility] MCHC Auto (RBC) [Mass/Vol]Or dered By: Renard Burgos on 09-12-2022 MCHC (RBC) [Mass/Vol] 33.6 g/dL 32-36 [facility] Platelets bldOrdered By: Lyubov Burgos on 09-12-2022 Platelets (Bld) [#/Vol] 197 10*3/uL 150-450 [facility] Absolute lymphocyte countOrd ered By: Renard Burgos on 09-05-2022 Lymphocytes Auto (Unsp spec) [#/Vol] 1.94 10*3/uL 0.83-4.51 [facility] Basophil percentageOrdered B y: Renard Burgos on 09-05-2022 Basophils/100 WBC (Bld) 0.5 % 0-1 [facility] Cholesterol [Mass/Vol] 136 mg/dL <200 [facility] Comment on above: <200 mg/dL Desirable 200-240 mg/dL Borderline >240 mg/dL High Risk Eosinophils/100 WBC (Bld) 0.4 % 0-5 [facility] Neutrophils (Bld) [#/Vol] 5.4 10*3/uL 2.0-7.7 [facility] Neutrophils/100 WBC (Bld) 67.5 % 47-70 [facility] Triglyceride [Mass/Vol] 304 mg/dL <199 [facility] Comment on above: The drugs N-Acetylcy steine and Metamizole may falsely depress this assay.Serum Triglycerides Reference Interval Normal <150 mg/dL Borderline high 150 - 199 mg/dL High 200 - 499 mg/dL Very High > or = 500 mg/dL WBC (Bld) [#/Vol] 7.9 10*3/uL 4.4-11.0 [facility] Blood erythrocytes count (nu mber/volume)Ordered By: Renard Burgos on 09-05-2022 RBC (Bld) [#/Vol] 4.28 10*6/uL 4.6-6.2 [facility] Blood hemoglobin measurement (mass/volume)Ordered By: Renard Burgos on 09-05-2022 Hemoglobin (Bld) [Mass/Vol] 12.9 g/dL 13.0-16.5 [facility] Blood lymphocytes/100 leukoc ytesOrdered By: Renard Burgos on 09-05-2022 Lymphocytes/100 WBC (Bld) 24.5 % 19-41 [facility] Blood monocytes/100 leukocyt esOrdered By: Renard Burgos on 09-05-2022 Monocytes/100 WBC (Bld) 6.6 % 0-10 [facility] Blood platelet mean volumeOr dered By: Renard Burgos on 09-05-2022 Platelet mean volume (Bld) [Entitic vol] 10.7 fL 6.2-12.0 [facility] Determination of erythrocyte mean corpuscular volume (MCV)Ordered By: Renard Burgos on 09-05-2022 MCV (RBC) [Entitic vol] 91.4 fL 80-94 [facility] Hematocrit Auto (Bld) [Volum e fraction]Ordered By: Renard Burgos on 09-05-2022 Hematocrit (Bld) [Volume fraction] 39.1 % 40-54 [facility] - Hematology and Cell countsOrdered By: Renard Burgos on 09-05-2022 Erythrocyte distribution width (RBC) [Entitic vol] 41.5 fL 35.1-43.9 [facility] Erythrocyte distribution width (RBC) [Ratio] 12.6 % 11.6-14.6 [facility] Immature granulocytes/100 WBC (Bld) 0.500 % 0.0-0.9 [facility] Comment on above: IG% - Immature Granu locytes (promyelocytes, myelocytes and metamyelocytes) > 1% indicates that a LEFT SHIFT is Present. MCH (RBC) [Entitic mass] 30.1 pg 27.0-32.0 [facility] Nucleated RBC/100 WBC (Bld) [Ratio] 0 % 0-5 [facility] MCHC Auto (RBC) [Mass/Vol]Or dered By: Renard Burgos on 09-05-2022 MCHC (RBC) [Mass/Vol] 33.0 g/dL 32-36 [facility] Platelets bldOrdered By: Lyubov Burgos on 09-05-2022 Platelets (Bld) [#/Vol] 200 10*3/uL 150-450 [facility] Serum or plasma cholesterol in HDL measurement (mass/volume)Ordered By: Renard Burgos on 09-05-2022 Cholesterol in HDL [Mass/Vol] 24 mg/dL >40 [facility] Comment on above: The drugs N-Acetylcy steine and Metamizole may falsely depress this assay. Reference Range HDL <40 mg/dL Low HDL Cholesterol HDL >or= 60 mg/dL High HDL Cholesterol Serum or plasma cholesterol in VLDL measurement (mass/volume)Ordered By: Renard Burgos on 09-05-2022 Cholesterol in VLDL [Mass/Vol] 61 mg/dL 5-40 [facility] Serum or plasma low density lipoprotein (LDL) cholesterol measurement (mass/volume)Ordered By: Renard Burgos on 09-05-2022 Cholesterol in LDL [Mass/Vol] 51 mg/dL 0-130 [facility] Absolute lymphocyte countOrd ered By: Renard Burgos on 08-29-2022 Lymphocytes Auto (Unsp spec) [#/Vol] 1.91 10*3/uL 0.83-4.51 [facility] Basophil percentageOrdered B y: Renard Burgos on 08-29-2022 Basophils/100 WBC (Bld) 0.4 % 0-1 [facility] Eosinophils/100 WBC (Bld) 0.4 % 0-5 [facility] Neutrophils (Bld) [#/Vol] 4.8 10*3/uL 2.0-7.7 [facility] Neutrophils/100 WBC (Bld) 66.0 % 47-70 [facility] WBC (Bld) [#/Vol] 7.3 10*3/uL 4.4-11.0 [facility] Blood erythrocytes count (nu mber/volume)Ordered By: Renard Burgos on 08-29-2022 RBC (Bld) [#/Vol] 4.43 10*6/uL 4.6-6.2 [facility] Blood hemoglobin measurement (mass/volume)Ordered By: Renard Burgos on 08-29-2022 Hemoglobin (Bld) [Mass/Vol] 13.6 g/dL 13.0-16.5 [facility] Blood lymphocytes/100 leukoc ytesOrdered By: Renard Burgos on 08-29-2022 Lymphocytes/100 WBC (Bld) 26.2 % 19-41 [facility] Blood monocytes/100 leukocyt esOrdered By: Renard Burgos on 08-29-2022 Monocytes/100 WBC (Bld) 6.6 % 0-10 [facility] Blood platelet mean volumeOr dered By: Renard Burgos on 08-29-2022 Platelet mean volume (Bld) [Entitic vol] 11.0 fL 6.2-12.0 [facility] Determination of erythrocyte mean corpuscular volume (MCV)Ordered By: Renard Burgos on 08-29-2022 MCV (RBC) [Entitic vol] 92.1 fL 80-94 [facility] Hematocrit Auto (Bld) [Volum e fraction]Ordered By: Renard Burgos on 08-29-2022 Hematocrit (Bld) [Volume fraction] 40.8 % 40-54 [facility] - Hematology and Cell countsOrdered By: Renard Burgos on 08-29-2022 Erythrocyte distribution width (RBC) [Entitic vol] 42.0 fL 35.1-43.9 [facility] Erythrocyte distribution width (RBC) [Ratio] 12.4 % 11.6-14.6 [facility] Immature granulocytes/100 WBC (Bld) 0.400 % 0.0-0.9 [facility] Comment on above: IG% - Immature Granu locytes (promyelocytes, myelocytes and metamyelocytes) > 1% indicates that a LEFT SHIFT is Present. MCH (RBC) [Entitic mass] 30.7 pg 27.0-32.0 [facility] Nucleated RBC/100 WBC (Bld) [Ratio] 0 % 0-5 [facility] MCHC Auto (RBC) [Mass/Vol]Or dered By: Renard Burgos on 08-29-2022 MCHC (RBC) [Mass/Vol] 33.3 g/dL 32-36 [facility] Platelets bldOrdered By: Lyubov Burgos on 08-29-2022 Platelets (Bld) [#/Vol] 195 10*3/uL 150-450 [facility] Absolute lymphocyte countOrd ered By: Renard Burgos on 08-22-2022 Lymphocytes Auto (Unsp spec) [#/Vol] 1.86 10*3/uL 0.83-4.51 [facility] Basophil percentageOrdered B y: Renard Burgos on 08-22-2022 Basophils/100 WBC (Bld) 0.4 % 0-1 [facility] Eosinophils/100 WBC (Bld) 0.4 % 0-5 [facility] Neutrophils (Bld) [#/Vol] 6.5 10*3/uL 2.0-7.7 [facility] Neutrophils/100 WBC (Bld) 70.5 % 47-70 [facility] WBC (Bld) [#/Vol] 9.3 10*3/uL 4.4-11.0 [facility] Blood erythrocytes count (nu mber/volume)Ordered By: Renard Burgos on 08-22-2022 RBC (Bld) [#/Vol] 4.55 10*6/uL 4.6-6.2 [facility] Blood hemoglobin measurement (mass/volume)Ordered By: Renard Burgos on 08-22-2022 Hemoglobin (Bld) [Mass/Vol] 14.1 g/dL 13.0-16.5 [facility] Blood lymphocytes/100 leukoc ytesOrdered By: Renard Burgos on 08-22-2022 Lymphocytes/100 WBC (Bld) 20.1 % 19-41 [facility] Blood monocytes/100 leukocyt esOrdered By: Renard Burgos on 08-22-2022 Monocytes/100 WBC (Bld) 8.3 % 0-10 [facility] Blood platelet mean volumeOr dered By: Renard Burgos on 08-22-2022 Platelet mean volume (Bld) [Entitic vol] 10.8 fL 6.2-12.0 [facility] Determination of erythrocyte mean corpuscular volume (MCV)Ordered By: Renard Burgos on 08-22-2022 MCV (RBC) [Entitic vol] 91.9 fL 80-94 [facility] Hematocrit Auto (Bld) [Volum e fraction]Ordered By: Renard Burgos on 08-22-2022 Hematocrit (Bld) [Volume fraction] 41.8 % 40-54 [facility] - Hematology and Cell countsOrdered By: Renard Burgos on 08-22-2022 Erythrocyte distribution width (RBC) [Entitic vol] 42.5 fL 35.1-43.9 [facility] Erythrocyte distribution width (RBC) [Ratio] 12.6 % 11.6-14.6 [facility] Immature granulocytes/100 WBC (Bld) 0.300 % 0.0-0.9 [facility] Comment on above: IG% - Immature Granu locytes (promyelocytes, myelocytes and metamyelocytes) > 1% indicates that a LEFT SHIFT is Present. MCH (RBC) [Entitic mass] 31.0 pg 27.0-32.0 [facility] Nucleated RBC/100 WBC (Bld) [Ratio] 0 % 0-5 [facility] MCHC Auto (RBC) [Mass/Vol]Or dered By: Renard Burgos on 08-22-2022 MCHC (RBC) [Mass/Vol] 33.7 g/dL 32-36 [facility] Platelets bldOrdered By: Lyubov Burgos on 08-22-2022 Platelets (Bld) [#/Vol] 197 10*3/uL 150-450 [facility] Absolute lymphocyte countOrd ered By: Renard Burgos on 08-15-2022 Lymphocytes Auto (Unsp spec) [#/Vol] 1.88 10*3/uL 0.83-4.51 [facility] Basophil percentageOrdered B y: Renard Burgos on 08-15-2022 Basophils/100 WBC (Bld) 0.5 % 0-1 [facility] Eosinophils/100 WBC (Bld) 0.5 % 0-5 [facility] Neutrophils (Bld) [#/Vol] 5.1 10*3/uL 2.0-7.7 [facility] Neutrophils/100 WBC (Bld) 65.0 % 47-70 [facility] WBC (Bld) [#/Vol] 7.9 10*3/uL 4.4-11.0 [facility] Blood erythrocytes count (nu mber/volume)Ordered By: Renard Burgos on 08-15-2022 RBC (Bld) [#/Vol] 4.48 10*6/uL 4.6-6.2 [facility] Blood hemoglobin measurement (mass/volume)Ordered By: Renard Burgos on 08-15-2022 Hemoglobin (Bld) [Mass/Vol] 13.7 g/dL 13.0-16.5 [facility] Blood lymphocytes/100 leukoc ytesOrdered By: Renard Burgos on 08-15-2022 Lymphocytes/100 WBC (Bld) 23.9 % 19-41 [facility] Blood monocytes/100 leukocyt esOrdered By: Renard Burgos on 08-15-2022 Monocytes/100 WBC (Bld) 9.8 % 0-10 [facility] Blood platelet mean volumeOr dered By: Renard Burgos on 08-15-2022 Platelet mean volume (Bld) [Entitic vol] 10.7 fL 6.2-12.0 [facility] Determination of erythrocyte mean corpuscular volume (MCV)Ordered By: Renard Burgos on 08-15-2022 MCV (RBC) [Entitic vol] 91.1 fL 80-94 [facility] Hematocrit Auto (Bld) [Volum e fraction]Ordered By: Renard Burgos on 08-15-2022 Hematocrit (Bld) [Volume fraction] 40.8 % 40-54 [facility] - Hematology and Cell countsOrdered By: Renard Burgos on 08-15-2022 Erythrocyte distribution width (RBC) [Entitic vol] 41.0 fL 35.1-43.9 [facility] Erythrocyte distribution width (RBC) [Ratio] 12.4 % 11.6-14.6 [facility] Immature granulocytes/100 WBC (Bld) 0.300 % 0.0-0.9 [facility] Comment on above: IG% - Immature Granu locytes (promyelocytes, myelocytes and metamyelocytes) > 1% indicates that a LEFT SHIFT is Present. MCH (RBC) [Entitic mass] 30.6 pg 27.0-32.0 [facility] Nucleated RBC/100 WBC (Bld) [Ratio] 0 % 0-5 [facility] MCHC Auto (RBC) [Mass/Vol]Or dered By: Renard Burgos on 08-15-2022 MCHC (RBC) [Mass/Vol] 33.6 g/dL 32-36 [facility] Platelets bldOrdered By: Lyubov Burgos on 08-15-2022 Platelets (Bld) [#/Vol] 212 10*3/uL 150-450 [facility] Absolute lymphocyte countOrd ered By: Renard Burgos on 08-08-2022 Lymphocytes Auto (Unsp spec) [#/Vol] 1.96 10*3/uL 0.83-4.51 [facility] Basophil percentageOrdered B y: Renard Burgos on 08-08-2022 Basophils/100 WBC (Bld) 0.5 % 0-1 [facility] Eosinophils/100 WBC (Bld) 0.5 % 0-5 [facility] Neutrophils (Bld) [#/Vol] 4.7 10*3/uL 2.0-7.7 [facility] Neutrophils/100 WBC (Bld) 64.1 % 47-70 [facility] WBC (Bld) [#/Vol] 7.4 10*3/uL 4.4-11.0 [facility] Blood erythrocytes count (nu mber/volume)Ordered By: Renard Burgos on 08-08-2022 RBC (Bld) [#/Vol] 4.44 10*6/uL 4.6-6.2 [facility] Blood hemoglobin measurement (mass/volume)Ordered By: Renard Burgos on 08-08-2022 Hemoglobin (Bld) [Mass/Vol] 13.6 g/dL 13.0-16.5 [facility] Blood lymphocytes/100 leukoc ytesOrdered By: Renard Burgos on 08-08-2022 Lymphocytes/100 WBC (Bld) 26.5 % 19-41 [facility] Blood monocytes/100 leukocyt esOrdered By: Renard Burgos on 08-08-2022 Monocytes/100 WBC (Bld) 8.1 % 0-10 [facility] Blood platelet mean volumeOr dered By: Renard Burgos on 08-08-2022 Platelet mean volume (Bld) [Entitic vol] 10.8 fL 6.2-12.0 [facility] Determination of erythrocyte mean corpuscular volume (MCV)Ordered By: Renard Burgos on 08-08-2022 MCV (RBC) [Entitic vol] 91.7 fL 80-94 [facility] Hematocrit Auto (Bld) [Volum e fraction]Ordered By: Renard Burgos on 08-08-2022 Hematocrit (Bld) [Volume fraction] 40.7 % 40-54 [facility] - Hematology and Cell countsOrdered By: Renard Burgos on 08-08-2022 Erythrocyte distribution width (RBC) [Entitic vol] 42.7 fL 35.1-43.9 [facility] Erythrocyte distribution width (RBC) [Ratio] 12.6 % 11.6-14.6 [facility] Immature granulocytes/100 WBC (Bld) 0.300 % 0.0-0.9 [facility] Comment on above: IG% - Immature Granu locytes (promyelocytes, myelocytes and metamyelocytes) > 1% indicates that a LEFT SHIFT is Present. MCH (RBC) [Entitic mass] 30.6 pg 27.0-32.0 [facility] Nucleated RBC/100 WBC (Bld) [Ratio] 0 % 0-5 [facility] MCHC Auto (RBC) [Mass/Vol]Or dered By: Renard Burgos on 08-08-2022 MCHC (RBC) [Mass/Vol] 33.4 g/dL 32-36 [facility] Platelets bldOrdered By: Pet er Loretta on 08-08-2022 Platelets (Bld) [#/Vol] 187 10*3/uL 150-450 [facility] Absolute lymphocyte countOrd ered By: Renrad Burgos on 08-01-2022 Lymphocytes Auto (Unsp spec) [#/Vol] 2.09 10*3/uL 0.83-4.51 [facility] Basophil percentageOrdered B y: Renard Burgos on 08-01-2022 Basophils/100 WBC (Bld) 0.4 % 0-1 [facility] Eosinophils/100 WBC (Bld) 0.4 % 0-5 [facility] Neutrophils (Bld) [#/Vol] 6.6 10*3/uL 2.0-7.7 [facility] Neutrophils/100 WBC (Bld) 69.1 % 47-70 [facility] WBC (Bld) [#/Vol] 9.5 10*3/uL 4.4-11.0 [facility] Blood erythrocytes count (nu mber/volume)Ordered By: Renard Burgos on 08-01-2022 RBC (Bld) [#/Vol] 4.48 10*6/uL 4.6-6.2 [facility] Blood hemoglobin measurement (mass/volume)Ordered By: Renard Burgos on 08-01-2022 Hemoglobin (Bld) [Mass/Vol] 13.9 g/dL 13.0-16.5 [facility] Blood lymphocytes/100 leukoc ytesOrdered By: Renard Burgos on 08-01-2022 Lymphocytes/100 WBC (Bld) 21.9 % 19-41 [facility] Blood monocytes/100 leukocyt esOrdered By: Renard Burgos on 08-01-2022 Monocytes/100 WBC (Bld) 7.9 % 0-10 [facility] Blood platelet mean volumeOr dered By: Renard Bugros on 08-01-2022 Platelet mean volume (Bld) [Entitic vol] 11.0 fL 6.2-12.0 [facility] Determination of erythrocyte mean corpuscular volume (MCV)Ordered By: Renard Burgos on 08-01-2022 MCV (RBC) [Entitic vol] 91.5 fL 80-94 [facility] Hematocrit Auto (Bld) [Volum e fraction]Ordered By: Renard Burgos on 08-01-2022 Hematocrit (Bld) [Volume fraction] 41.0 % 40-54 [facility] - Hematology and Cell countsOrdered By: Renard Burgos on 08-01-2022 Erythrocyte distribution width (RBC) [Entitic vol] 41.6 fL 35.1-43.9 [facility] Erythrocyte distribution width (RBC) [Ratio] 12.5 % 11.6-14.6 [facility] Immature granulocytes/100 WBC (Bld) 0.300 % 0.0-0.9 [facility] Comment on above: IG% - Immature Granu locytes (promyelocytes, myelocytes and metamyelocytes) > 1% indicates that a LEFT SHIFT is Present. MCH (RBC) [Entitic mass] 31.0 pg 27.0-32.0 [facility] Nucleated RBC/100 WBC (Bld) [Ratio] 0 % 0-5 [facility] MCHC Auto (RBC) [Mass/Vol]Or dered By: Renard Burgos on 08-01-2022 MCHC (RBC) [Mass/Vol] 33.9 g/dL 32-36 [facility] Platelets bldOrdered By: Lyubov Burgos on 08-01-2022 Platelets (Bld) [#/Vol] 208 10*3/uL 150-450 [facility] Absolute lymphocyte countOrd ered By: Renard Burgos on 07-25-2022 Lymphocytes Auto (Unsp spec) [#/Vol] 2.16 10*3/uL 0.83-4.51 [facility] Basophil percentageOrdered B y: Renard Burgos on 07-25-2022 Basophils/100 WBC (Bld) 0.6 % 0-1 [facility] Eosinophils/100 WBC (Bld) 0.6 % 0-5 [facility] Neutrophils (Bld) [#/Vol] 5.4 10*3/uL 2.0-7.7 [facility] Neutrophils/100 WBC (Bld) 64.5 % 47-70 [facility] WBC (Bld) [#/Vol] 8.4 10*3/uL 4.4-11.0 [facility] Blood erythrocytes count (nu mber/volume)Ordered By: Renard Burgos on 07-25-2022 RBC (Bld) [#/Vol] 4.45 10*6/uL 4.6-6.2 [facility] Blood hemoglobin measurement (mass/volume)Ordered By: Renard Burgos on 07-25-2022 Hemoglobin (Bld) [Mass/Vol] 13.4 g/dL 13.0-16.5 [facility] Blood lymphocytes/100 leukoc ytesOrdered By: Renard Burgos on 07-25-2022 Lymphocytes/100 WBC (Bld) 25.7 % 19-41 [facility] Blood monocytes/100 leukocyt esOrdered By: Renard Burgos on 07-25-2022 Monocytes/100 WBC (Bld) 8.4 % 0-10 [facility] Blood platelet mean volumeOr dered By: Renard Burgos on 07-25-2022 Platelet mean volume (Bld) [Entitic vol] 11.0 fL 6.2-12.0 [facility] Determination of erythrocyte mean corpuscular volume (MCV)Ordered By: Renard Burgos on 07-25-2022 MCV (RBC) [Entitic vol] 92.8 fL 80-94 [facility] Hematocrit Auto (Bld) [Volum e fraction]Ordered By: Renard Burgos on 07-25-2022 Hematocrit (Bld) [Volume fraction] 41.3 % 40-54 [facility] - Hematology and Cell countsOrdered By: Renard Burgos on 07-25-2022 Erythrocyte distribution width (RBC) [Entitic vol] 42.5 fL 35.1-43.9 [facility] Erythrocyte distribution width (RBC) [Ratio] 12.5 % 11.6-14.6 [facility] Immature granulocytes/100 WBC (Bld) 0.200 % 0.0-0.9 [facility] Comment on above: IG% - Immature Granu locytes (promyelocytes, myelocytes and metamyelocytes) > 1% indicates that a LEFT SHIFT is Present. MCH (RBC) [Entitic mass] 30.1 pg 27.0-32.0 [facility] Nucleated RBC/100 WBC (Bld) [Ratio] 0 % 0-5 [facility] MCHC Auto (RBC) [Mass/Vol]Or dered By: Renard Burgos on 07-25-2022 MCHC (RBC) [Mass/Vol] 32.4 g/dL 32-36 [facility] Platelets bldOrdered By: Lyubov Burgos on 07-25-2022 Platelets (Bld) [#/Vol] 200 10*3/uL 150-450 [facility] No Panel InformationOrdered By: Renard Burgos on 07-19-2022 Vitamin D 25-Hydroxy 34.2 ng/mL [facility] Comment on above: Vitamin D 25(OH) Sta tus Range Deficiency <20 ng/mL (50nmol/L) Insufficiency 20 - 30 ng/mL (50 - 75 nmol/L) Sufficiency 30 - 100 ng/mL (75 - 250 nmol/L) Toxicity >100 ng/mL (>250 nmol/L) Absolute lymphocyte countOrd ered By: Renard Burgos on 07-18-2022 Lymphocytes Auto (Unsp spec) [#/Vol] 2.48 10*3/uL 0.83-4.51 [facility] Basophil percentageOrdered B y: Renard Burgos on 07-18-2022 Basophils/100 WBC (Bld) 0.5 % 0-1 [facility] Eosinophils/100 WBC (Bld) 0.6 % 0-5 [facility] Neutrophils (Bld) [#/Vol] 5.9 10*3/uL 2.0-7.7 [facility] Neutrophils/100 WBC (Bld) 61.6 % 47-70 [facility] WBC (Bld) [#/Vol] 9.6 10*3/uL 4.4-11.0 [facility] Blood erythrocytes count (nu mber/volume)Ordered By: Renard Burgos on 07-18-2022 RBC (Bld) [#/Vol] 4.56 10*6/uL 4.6-6.2 [facility] Blood hemoglobin measurement (mass/volume)Ordered By: Renard Burgos on 07-18-2022 Hemoglobin (Bld) [Mass/Vol] 13.9 g/dL 13.0-16.5 [facility] Blood lymphocytes/100 leukoc ytesOrdered By: Renard Burgos on 07-18-2022 Lymphocytes/100 WBC (Bld) 25.9 % 19-41 [facility] Blood monocytes/100 leukocyt esOrdered By: Renard Burgos on 07-18-2022 Monocytes/100 WBC (Bld) 11.0 % 0-10 [facility] Blood platelet mean volumeOr dered By: Renard Burgos on 07-18-2022 Platelet mean volume (Bld) [Entitic vol] 11.3 fL 6.2-12.0 [facility] Determination of erythrocyte mean corpuscular volume (MCV)Ordered By: Renard Burgos on 07-18-2022 MCV (RBC) [Entitic vol] 93.9 fL 80-94 [facility] Hematocrit Auto (Bld) [Volum e fraction]Ordered By: Renard Burgos on 07-18-2022 Hematocrit (Bld) [Volume fraction] 42.8 % 40-54 [facility] - Hematology and Cell countsOrdered By: Renard Bugros on 07-18-2022 Erythrocyte distribution width (RBC) [Entitic vol] 44.0 fL 35.1-43.9 [facility] Erythrocyte distribution width (RBC) [Ratio] 12.8 % 11.6-14.6 [facility] Immature granulocytes/100 WBC (Bld) 0.400 % 0.0-0.9 [facility] Comment on above: IG% - Immature Granu locytes (promyelocytes, myelocytes and metamyelocytes) > 1% indicates that a LEFT SHIFT is Present. MCH (RBC) [Entitic mass] 30.5 pg 27.0-32.0 [facility] Nucleated RBC/100 WBC (Bld) [Ratio] 0 % 0-5 [facility] MCHC Auto (RBC) [Mass/Vol]Or dered By: Renard Burgos on 07-18-2022 MCHC (RBC) [Mass/Vol] 32.5 g/dL 32-36 [facility] Platelets bldOrdered By: Lyubov Burgos on 07-18-2022 Platelets (Bld) [#/Vol] 207 10*3/uL 150-450 [facility] Absolute lymphocyte countOrd ered By: Renard Burgos on 07-11-2022 Lymphocytes Auto (Unsp spec) [#/Vol] 2.37 10*3/uL 0.83-4.51 [facility] Basophil percentageOrdered B y: Renard Burgos on 07-11-2022 Basophils/100 WBC (Bld) 0.6 % 0-1 [facility] Eosinophils/100 WBC (Bld) 0.5 % 0-5 [facility] Neutrophils (Bld) [#/Vol] 5.3 10*3/uL 2.0-7.7 [facility] Neutrophils/100 WBC (Bld) 61.8 % 47-70 [facility] WBC (Bld) [#/Vol] 8.5 10*3/uL 4.4-11.0 [facility] Blood erythrocytes count (nu mber/volume)Ordered By: Renard Burgos on 07-11-2022 RBC (Bld) [#/Vol] 4.83 10*6/uL 4.6-6.2 [facility] Blood hemoglobin measurement (mass/volume)Ordered By: Renard Burgos on 07-11-2022 Hemoglobin (Bld) [Mass/Vol] 14.7 g/dL 13.0-16.5 [facility] Blood lymphocytes/100 leukoc ytesOrdered By: Renard Burgos on 07-11-2022 Lymphocytes/100 WBC (Bld) 27.8 % 19-41 [facility] Blood monocytes/100 leukocyt esOrdered By: Renard Burgos on 07-11-2022 Monocytes/100 WBC (Bld) 8.8 % 0-10 [facility] Blood platelet mean volumeOr dered By: Renard Burgos on 07-11-2022 Platelet mean volume (Bld) [Entitic vol] 10.6 fL 6.2-12.0 [facility] Determination of erythrocyte mean corpuscular volume (MCV)Ordered By: Renard Burgos on 07-11-2022 MCV (RBC) [Entitic vol] 90.7 fL 80-94 [facility] Hematocrit Auto (Bld) [Volum e fraction]Ordered By: Renard Burgos on 07-11-2022 Hematocrit (Bld) [Volume fraction] 43.8 % 40-54 [facility] - Hematology and Cell countsOrdered By: Renard Burgos on 07-11-2022 Erythrocyte distribution width (RBC) [Entitic vol] 41.2 fL 35.1-43.9 [facility] Erythrocyte distribution width (RBC) [Ratio] 12.7 % 11.6-14.6 [facility] Immature granulocytes/100 WBC (Bld) 0.500 % 0.0-0.9 [facility] Comment on above: IG% - Immature Granu locytes (promyelocytes, myelocytes and metamyelocytes) > 1% indicates that a LEFT SHIFT is Present. MCH (RBC) [Entitic mass] 30.4 pg 27.0-32.0 [facility] Nucleated RBC/100 WBC (Bld) [Ratio] 0 % 0-5 [facility] MCHC Auto (RBC) [Mass/Vol]Or dered By: Renard Burgos on 07-11-2022 MCHC (RBC) [Mass/Vol] 33.6 g/dL 32-36 [facility] Platelets bldOrdered By: Lyubov Burgos on 07-11-2022 Platelets (Bld) [#/Vol] 207 10*3/uL 150-450 [facility] Absolute lymphocyte countOrd ered By: Renard Burgos on 07-04-2022 Lymphocytes Auto (Unsp spec) [#/Vol] 1.87 10*3/uL 0.83-4.51 [facility] Basophil percentageOrdered B y: Renard Burgos on 07-04-2022 Basophils/100 WBC (Bld) 0.4 % 0-1 [facility] Eosinophils/100 WBC (Bld) 0.5 % 0-5 [facility] Neutrophils (Bld) [#/Vol] 7.5 10*3/uL 2.0-7.7 [facility] Neutrophils/100 WBC (Bld) 72.8 % 47-70 [facility] WBC (Bld) [#/Vol] 10.3 10*3/uL 4.4-11.0 [facility] Blood erythrocytes count (nu mber/volume)Ordered By: Renard Burgos on 07-04-2022 RBC (Bld) [#/Vol] 4.45 10*6/uL 4.6-6.2 [facility] Blood hemoglobin measurement (mass/volume)Ordered By: Renard Burgos on 07-04-2022 Hemoglobin (Bld) [Mass/Vol] 13.5 g/dL 13.0-16.5 [facility] Blood lymphocytes/100 leukoc ytesOrdered By: Renard Burgos on 07-04-2022 Lymphocytes/100 WBC (Bld) 18.1 % 19-41 [facility] Blood monocytes/100 leukocyt esOrdered By: Renard Burgos on 07-04-2022 Monocytes/100 WBC (Bld) 7.7 % 0-10 [facility] Blood platelet mean volumeOr dered By: Renard Burgos on 07-04-2022 Platelet mean volume (Bld) [Entitic vol] 11.3 fL 6.2-12.0 [facility] Determination of erythrocyte mean corpuscular volume (MCV)Ordered By: Renard Burgos on 07-04-2022 MCV (RBC) [Entitic vol] 93.0 fL 80-94 [facility] Hematocrit Auto (Bld) [Volum e fraction]Ordered By: Renard Burgos on 07-04-2022 Hematocrit (Bld) [Volume fraction] 41.4 % 40-54 [facility] - Hematology and Cell countsOrdered By: Renard Burgos on 07-04-2022 Erythrocyte distribution width (RBC) [Entitic vol] 43.0 fL 35.1-43.9 [facility] Erythrocyte distribution width (RBC) [Ratio] 12.5 % 11.6-14.6 [facility] Immature granulocytes/100 WBC (Bld) 0.500 % 0.0-0.9 [facility] Comment on above: IG% - Immature Granu locytes (promyelocytes, myelocytes and metamyelocytes) > 1% indicates that a LEFT SHIFT is Present. MCH (RBC) [Entitic mass] 30.3 pg 27.0-32.0 [facility] Nucleated RBC/100 WBC (Bld) [Ratio] 0 % 0-5 [facility] MCHC Auto (RBC) [Mass/Vol]Or dered By: Renard Burgos on 07-04-2022 MCHC (RBC) [Mass/Vol] 32.6 g/dL 32-36 [facility] Platelets bldOrdered By: [facility] Loretta on 07-04-2022 Platelets (Bld) [#/Vol] 211 10*3/uL 150-450 [facility] Absolute lymphocyte countOrd ered By: Renard Burgos on 06-27-2022 Lymphocytes Auto (Unsp spec) [#/Vol] 1.83 10*3/uL 0.83-4.51 [facility] Basophil percentageOrdered B y: Renard Burgos on 06-27-2022 Basophils/100 WBC (Bld) 0.4 % 0-1 [facility] Eosinophils/100 WBC (Bld) 0.5 % 0-5 [facility] Neutrophils (Bld) [#/Vol] 5.0 10*3/uL 2.0-7.7 [facility] Neutrophils/100 WBC (Bld) 67.6 % 47-70 [facility] WBC (Bld) [#/Vol] 7.4 10*3/uL 4.4-11.0 [facility] Blood erythrocytes count (nu mber/volume)Ordered By: Renard Burgos on 06-27-2022 RBC (Bld) [#/Vol] 4.52 10*6/uL 4.6-6.2 [facility] Blood hemoglobin measurement (mass/volume)Ordered By: Renard Burgos on 06-27-2022 Hemoglobin (Bld) [Mass/Vol] 13.9 g/dL 13.0-16.5 [facility] Blood lymphocytes/100 leukoc ytesOrdered By: Renard Burgos on 06-27-2022 Lymphocytes/100 WBC (Bld) 24.7 % 19-41 [facility] Blood monocytes/100 leukocyt esOrdered By: Renard Burgos on 06-27-2022 Monocytes/100 WBC (Bld) 6.4 % 0-10 [facility] Blood platelet mean volumeOr dered By: Renard Brugos on 06-27-2022 Platelet mean volume (Bld) [Entitic vol] 10.7 fL 6.2-12.0 [facility] Determination of erythrocyte mean corpuscular volume (MCV)Ordered By: Renard Burgos on 06-27-2022 MCV (RBC) [Entitic vol] 91.2 fL 80-94 [facility] Hematocrit Auto (Bld) [Volum e fraction]Ordered By: Renard Burgos on 06-27-2022 Hematocrit (Bld) [Volume fraction] 41.2 % 40-54 [facility] - Hematology and Cell countsOrdered By: Renard Burgos on 06-27-2022 Erythrocyte distribution width (RBC) [Entitic vol] 41.9 fL 35.1-43.9 [facility] Erythrocyte distribution width (RBC) [Ratio] 12.7 % 11.6-14.6 [facility] Immature granulocytes/100 WBC (Bld) 0.400 % 0.0-0.9 [facility] Comment on above: IG% - Immature Granu locytes (promyelocytes, myelocytes and metamyelocytes) > 1% indicates that a LEFT SHIFT is Present. MCH (RBC) [Entitic mass] 30.8 pg 27.0-32.0 [facility] Nucleated RBC/100 WBC (Bld) [Ratio] 0 % 0-5 [facility] MCHC Auto (RBC) [Mass/Vol]Or dered By: Renard Burgos on 06-27-2022 MCHC (RBC) [Mass/Vol] 33.7 g/dL 32-36 [facility] Platelets bldOrdered By: Lyubov Burgos on 06-27-2022 Platelets (Bld) [#/Vol] 200 10*3/uL 150-450 [facility] Absolute lymphocyte countOrd ered By: Renard Burgos on 06-20-2022 Lymphocytes Auto (Unsp spec) [#/Vol] 1.57 10*3/uL 0.83-4.51 [facility] Basophil percentageOrdered B y: Renard Burgos on 06-20-2022 Basophils/100 WBC (Bld) 0.2 % 0-1 [facility] Eosinophils/100 WBC (Bld) 0.2 % 0-5 [facility] Neutrophils (Bld) [#/Vol] 6.5 10*3/uL 2.0-7.7 [facility] Neutrophils/100 WBC (Bld) 74.5 % 47-70 [facility] WBC (Bld) [#/Vol] 8.8 10*3/uL 4.4-11.0 [facility] Blood erythrocytes count (nu mber/volume)Ordered By: Renard Burgos on 06-20-2022 RBC (Bld) [#/Vol] 4.79 10*6/uL 4.6-6.2 [facility] Blood hemoglobin measurement (mass/volume)Ordered By: Renard Burgos on 06-20-2022 Hemoglobin (Bld) [Mass/Vol] 14.6 g/dL 13.0-16.5 [facility] Blood lymphocytes/100 leukoc ytesOrdered By: Renard Burgos on 06-20-2022 Lymphocytes/100 WBC (Bld) 17.8 % 19-41 [facility] Blood monocytes/100 leukocyt esOrdered By: Renard Burgos on 06-20-2022 Monocytes/100 WBC (Bld) 7.0 % 0-10 [facility] Blood platelet mean volumeOr dered By: Renard Burgos on 06-20-2022 Platelet mean volume (Bld) [Entitic vol] 11.1 fL 6.2-12.0 [facility] Determination of erythrocyte mean corpuscular volume (MCV)Ordered By: Renard Burgos on 06-20-2022 MCV (RBC) [Entitic vol] 92.1 fL 80-94 [facility] Hematocrit Auto (Bld) [Volum e fraction]Ordered By: Renard Burgos on 06-20-2022 Hematocrit (Bld) [Volume fraction] 44.1 % 40-54 [facility] - Hematology and Cell countsOrdered By: Renard Burgos on 06-20-2022 Erythrocyte distribution width (RBC) [Entitic vol] 42.4 fL 35.1-43.9 [facility] Erythrocyte distribution width (RBC) [Ratio] 12.6 % 11.6-14.6 [facility] Immature granulocytes/100 WBC (Bld) 0.300 % 0.0-0.9 [facility] Comment on above: IG% - Immature Granu locytes (promyelocytes, myelocytes and metamyelocytes) > 1% indicates that a LEFT SHIFT is Present. MCH (RBC) [Entitic mass] 30.5 pg 27.0-32.0 [facility] Nucleated RBC/100 WBC (Bld) [Ratio] 0 % 0-5 [facility] MCHC Auto (RBC) [Mass/Vol]Or dered By: Renard Burgos on 06-20-2022 MCHC (RBC) [Mass/Vol] 33.1 g/dL 32-36 [facility] Platelets bldOrdered By: Lyubov Burgos on 06-20-2022 Platelets (Bld) [#/Vol] 207 10*3/uL 150-450 [facility] Absolute lymphocyte countOrd ered By: Renard Burgos on 06-13-2022 Lymphocytes Auto (Unsp spec) [#/Vol] 2.28 10*3/uL 0.83-4.51 [facility] Basophil percentageOrdered B y: Renard Burgos on 06-13-2022 Basophils/100 WBC (Bld) 0.5 % 0-1 [facility] Eosinophils/100 WBC (Bld) 0.4 % 0-5 [facility] Neutrophils (Bld) [#/Vol] 6.0 10*3/uL 2.0-7.7 [facility] Neutrophils/100 WBC (Bld) 65.6 % 47-70 [facility] WBC (Bld) [#/Vol] 9.2 10*3/uL 4.4-11.0 [facility] Blood erythrocytes count (nu mber/volume)Ordered By: Renard Burgos on 06-13-2022 RBC (Bld) [#/Vol] 4.55 10*6/uL 4.6-6.2 [facility] Blood hemoglobin measurement (mass/volume)Ordered By: Renard Burgos on 06-13-2022 Hemoglobin (Bld) [Mass/Vol] 13.7 g/dL 13.0-16.5 [facility] Blood lymphocytes/100 leukoc ytesOrdered By: Renard Burgos on 06-13-2022 Lymphocytes/100 WBC (Bld) 24.9 % 19-41 [facility] Blood monocytes/100 leukocyt esOrdered By: Renard Burgos on 06-13-2022 Monocytes/100 WBC (Bld) 8.2 % 0-10 [facility] Blood platelet mean volumeOr dered By: Renard Burgos on 06-13-2022 Platelet mean volume (Bld) [Entitic vol] 10.9 fL 6.2-12.0 [facility] Determination of erythrocyte mean corpuscular volume (MCV)Ordered By: Renard Burgos on 06-13-2022 MCV (RBC) [Entitic vol] 92.3 fL 80-94 [facility] Hematocrit Auto (Bld) [Volum e fraction]Ordered By: Renard Burgos on 06-13-2022 Hematocrit (Bld) [Volume fraction] 42.0 % 40-54 [facility] - Hematology and Cell countsOrdered By: Renard Burgos on 06-13-2022 Erythrocyte distribution width (RBC) [Entitic vol] 43.2 fL 35.1-43.9 [facility] Erythrocyte distribution width (RBC) [Ratio] 12.8 % 11.6-14.6 [facility] Immature granulocytes/100 WBC (Bld) 0.400 % 0.0-0.9 [facility] Comment on above: IG% - Immature Granu locytes (promyelocytes, myelocytes and metamyelocytes) > 1% indicates that a LEFT SHIFT is Present. MCH (RBC) [Entitic mass] 30.1 pg 27.0-32.0 [facility] Nucleated RBC/100 WBC (Bld) [Ratio] 0 % 0-5 [facility] MCHC Auto (RBC) [Mass/Vol]Or dered By: Renard Burgos on 06-13-2022 MCHC (RBC) [Mass/Vol] 32.6 g/dL 32-36 [facility] Platelets bldOrdered By: Pet lizy Burgos on 06-13-2022 Platelets (Bld) [#/Vol] 203 10*3/uL 150-450 [facility] Absolute lymphocyte countOrd ered By: Renard Burgos on 06-06-2022 Lymphocytes Auto (Unsp spec) [#/Vol] 2.02 10*3/uL 0.83-4.51 [facility] Basophil percentageOrdered B y: Renard Burgos on 06-06-2022 Basophils/100 WBC (Bld) 0.5 % 0-1 [facility] Eosinophils/100 WBC (Bld) 0.7 % 0-5 [facility] Neutrophils (Bld) [#/Vol] 4.7 10*3/uL 2.0-7.7 [facility] Neutrophils/100 WBC (Bld) 63.3 % 47-70 [facility] WBC (Bld) [#/Vol] 7.4 10*3/uL 4.4-11.0 [facility] Blood erythrocytes count (nu mber/volume)Ordered By: Renard Burgos on 06-06-2022 RBC (Bld) [#/Vol] 4.57 10*6/uL 4.6-6.2 [facility] Blood hemoglobin measurement (mass/volume)Ordered By: Renard Burgos on 06-06-2022 Hemoglobin (Bld) [Mass/Vol] 14.0 g/dL 13.0-16.5 [facility] Blood lymphocytes/100 leukoc ytesOrdered By: Renard Burgos on 06-06-2022 Lymphocytes/100 WBC (Bld) 27.2 % 19-41 [facility] Blood monocytes/100 leukocyt esOrdered By: Renard Burgos on 06-06-2022 Monocytes/100 WBC (Bld) 7.9 % 0-10 [facility] Blood platelet mean volumeOr dered By: Renard Burgos on 06-06-2022 Platelet mean volume (Bld) [Entitic vol] 10.7 fL 6.2-12.0 [facility] Determination of erythrocyte mean corpuscular volume (MCV)Ordered By: Renard Burgos on 06-06-2022 MCV (RBC) [Entitic vol] 90.2 fL 80-94 [facility] Hematocrit Auto (Bld) [Volum e fraction]Ordered By: Renard Burgos on 06-06-2022 Hematocrit (Bld) [Volume fraction] 41.2 % 40-54 [facility] - Hematology and Cell countsOrdered By: Renard Burgos on 06-06-2022 Erythrocyte distribution width (RBC) [Entitic vol] 41.5 fL 35.1-43.9 [facility] Erythrocyte distribution width (RBC) [Ratio] 12.7 % 11.6-14.6 [facility] Immature granulocytes/100 WBC (Bld) 0.400 % 0.0-0.9 [facility] Comment on above: IG% - Immature Granu locytes (promyelocytes, myelocytes and metamyelocytes) > 1% indicates that a LEFT SHIFT is Present. MCH (RBC) [Entitic mass] 30.6 pg 27.0-32.0 [facility] Nucleated RBC/100 WBC (Bld) [Ratio] 0 % 0-5 [facility] MCHC Auto (RBC) [Mass/Vol]Or dered By: Renard Burgos on 06-06-2022 MCHC (RBC) [Mass/Vol] 34.0 g/dL 32-36 [facility] Platelets bldOrdered By: Lyubov Burgos on 06-06-2022 Platelets (Bld) [#/Vol] 197 10*3/uL 150-450 [facility] Absolute lymphocyte countOrd ered By: Renard Burgos on 05-30-2022 Lymphocytes Auto (Unsp spec) [#/Vol] 2.32 10*3/uL 0.83-4.51 [facility] Basophil percentageOrdered B y: Renard Burgos on 05-30-2022 Basophils/100 WBC (Bld) 0.4 % 0-1 [facility] Eosinophils/100 WBC (Bld) 0.5 % 0-5 [facility] Neutrophils (Bld) [#/Vol] 5.2 10*3/uL 2.0-7.7 [facility] Neutrophils/100 WBC (Bld) 62.6 % 47-70 [facility] WBC (Bld) [#/Vol] 8.3 10*3/uL 4.4-11.0 [facility] Blood erythrocytes count (nu mber/volume)Ordered By: Renard Burgos on 01-30-2023 RBC (Bld) [#/Vol] 4.87 10*6/uL 4.6-6.2 [facility] Blood hemoglobin measurement (mass/volume)Ordered By: Renard Burgos on 05-30-2022 Hemoglobin (Bld) [Mass/Vol] 14.6 g/dL 13.0-16.5 [facility] Blood lymphocytes/100 leukoc ytesOrdered By: Renard Burgos on 05-30-2022 Lymphocytes/100 WBC (Bld) 27.9 % 19-41 [facility] Blood monocytes/100 leukocyt esOrdered By: Renard Burgos on 05-30-2022 Monocytes/100 WBC (Bld) 8.0 % 0-10 [facility] Blood platelet mean volumeOr dered By: Renard Burgos on 05-30-2022 Platelet mean volume (Bld) [Entitic vol] 10.9 fL 6.2-12.0 [facility] Determination of erythrocyte mean corpuscular volume (MCV)Ordered By: Renard Burgos on 05-30-2022 MCV (RBC) [Entitic vol] 91.6 fL 80-94 [facility] Hematocrit Auto (Bld) [Volum e fraction]Ordered By: Renard Burgos on 05-30-2022 Hematocrit (Bld) [Volume fraction] 44.6 % 40-54 [facility] - Hematology and Cell countsOrdered By: Renard Burgos on 05-30-2022 Erythrocyte distribution width (RBC) [Entitic vol] 42.4 fL 35.1-43.9 [facility] Erythrocyte distribution width (RBC) [Ratio] 12.6 % 11.6-14.6 [facility] Immature granulocytes/100 WBC (Bld) 0.600 % 0.0-0.9 [facility] Comment on above: IG% - Immature Granu locytes (promyelocytes, myelocytes and metamyelocytes) > 1% indicates that a LEFT SHIFT is Present. MCH (RBC) [Entitic mass] 30.0 pg 27.0-32.0 [facility] Nucleated RBC/100 WBC (Bld) [Ratio] 0 % 0-5 [facility] MCHC Auto (RBC) [Mass/Vol]Or dered By: Renard Burgos on 05-30-2022 MCHC (RBC) [Mass/Vol] 32.7 g/dL 32-36 [facility] Platelets bldOrdered By: Lyubov lizy Loretta on 05-30-2022 Platelets (Bld) [#/Vol] 213 10*3/uL 150-450 [facility] Absolute lymphocyte countOrd ered By: Renard Burgos on 05-23-2022 Lymphocytes Auto (Unsp spec) [#/Vol] 2.07 10*3/uL 0.83-4.51 [facility] Basophil percentageOrdered B y: Renard Burgos on 05-23-2022 Basophils/100 WBC (Bld) 0.5 % 0-1 [facility] Eosinophils/100 WBC (Bld) 0.4 % 0-5 [facility] Neutrophils (Bld) [#/Vol] 5.7 10*3/uL 2.0-7.7 [facility] Neutrophils/100 WBC (Bld) 66.5 % 47-70 [facility] WBC (Bld) [#/Vol] 8.5 10*3/uL 4.4-11.0 [facility] Blood erythrocytes count (nu mber/volume)Ordered By: Renard Burgos on 05-23-2022 RBC (Bld) [#/Vol] 4.75 10*6/uL 4.6-6.2 [facility] Blood hemoglobin measurement (mass/volume)Ordered By: Renard Burgos on 05-23-2022 Hemoglobin (Bld) [Mass/Vol] 14.3 g/dL 13.0-16.5 [facility] Blood lymphocytes/100 leukoc ytesOrdered By: Renard Burgos on 05-23-2022 Lymphocytes/100 WBC (Bld) 24.4 % 19-41 [facility] Blood monocytes/100 leukocyt esOrdered By: Renard Burgos on 05-23-2022 Monocytes/100 WBC (Bld) 7.7 % 0-10 [facility] Blood platelet mean volumeOr dered By: Renard Burgos on 05-23-2022 Platelet mean volume (Bld) [Entitic vol] 11.1 fL 6.2-12.0 [facility] Determination of erythrocyte mean corpuscular volume (MCV)Ordered By: Renard Burgos on 05-23-2022 MCV (RBC) [Entitic vol] 90.9 fL 80-94 [facility] Hematocrit Auto (Bld) [Volum e fraction]Ordered By: Renard Burgos on 05-23-2022 Hematocrit (Bld) [Volume fraction] 43.2 % 40-54 [facility] - Hematology and Cell countsOrdered By: Renard Burgos on 05-23-2022 Erythrocyte distribution width (RBC) [Entitic vol] 41.7 fL 35.1-43.9 [facility] Erythrocyte distribution width (RBC) [Ratio] 12.5 % 11.6-14.6 [facility] Immature granulocytes/100 WBC (Bld) 0.500 % 0.0-0.9 [facility] Comment on above: IG% - Immature Granu locytes (promyelocytes, myelocytes and metamyelocytes) > 1% indicates that a LEFT SHIFT is Present. MCH (RBC) [Entitic mass] 30.1 pg 27.0-32.0 [facility] Nucleated RBC/100 WBC (Bld) [Ratio] 0 % 0-5 [facility] MCHC Auto (RBC) [Mass/Vol]Or dered By: Renard Burgos on 05-23-2022 MCHC (RBC) [Mass/Vol] 33.1 g/dL 32-36 [facility] Platelets bldOrdered By: Lyubov Burgos on 05-23-2022 Platelets (Bld) [#/Vol] 213 10*3/uL 150-450 [facility] No Panel Informationon 05-20 Dejah Hazel DO 05/20/2022 7:32 PM Feeding Tube Replacement Performed by: Dejah Hazel DO Authorized by: Abelardo Rios DO Consent: Consent obtained: Verbal Consent given by: Patient [place] protocol: Patient identity confirmed: Verbally with patient [...] Procedure completion: Tolerated well, no immediate complications [facility] XR Abdomen Single viewon G-tube position is within the stomach. No evidence of contrast extravasation. Report Dictated on Electronically Signed By: Jason Tran Electronically Signed Date/Time: 05/20/2022 7:38 PM EST [facility] Patient Name: KATHYA HOOPER Exam Date/Time: 05/20/2022 19:18 Procedure: XR ABDOMEN 1 VIEW Ordering Provider: RIOS TYLER Reason For Exam: SUPINE ABDOMEN (KUB) CLINICAL INDICATION: confirm placement of G tube A supine plain film of the abdomen was obtained. Repeat abdominal radiographs following hand injection of enteric contrast via the patient's enteric tube. (Gastrografin 30 mL). COMPARISON: None FINDINGS: On the nursery school attendant image, no dilated bowel loops are identified. Feeding tube overlies the epigastric region of the abdomen. On the postcontrast images, there is a small amount of enteric contrast in the stomach and contrast is present throughout the proximal duodenum. No extravasated contrast is evident. [facility] Jason Tran M D - 05/20/2022 Patient [...] 30 mL). COMPARISON: None FINDINGS: On the nursery school attendant image, no dilated bowel loops are identified. [...] Date/Time: 05/20/2022 7:38 PM EST [facility] Radiology Study observation (narrative) [facility] Abdomen Single viewOrdere d By: Jason Tran on 05-20-2022 [facility] [employer] Work Phone: Absolute lymphocyte countOrd ered By: Renard Burgos on 05-16-2022 Lymphocytes Auto (Unsp spec) [#/Vol] 2.06 10*3/uL 0.83-4.51 [facility] Basophil percentageOrdered B y: Renard Burgos on 05-16-2022 Basophils/100 WBC (Bld) 0.6 % 0-1 [facility] Eosinophils/100 WBC (Bld) 0.6 % 0-5 [facility] Neutrophils (Bld) [#/Vol] 4.4 10*3/uL 2.0-7.7 [facility] Neutrophils/100 WBC (Bld) 61.2 % 47-70 [facility] WBC (Bld) [#/Vol] 7.1 10*3/uL 4.4-11.0 [facility] Blood erythrocytes count (nu mber/volume)Ordered By: Renard Burgos on 05-16-2022 RBC (Bld) [#/Vol] 4.58 10*6/uL 4.6-6.2 [facility] Blood hemoglobin measurement (mass/volume)Ordered By: Renard Burgos on 05-16-2022 Hemoglobin (Bld) [Mass/Vol] 13.9 g/dL 13.0-16.5 [facility] Blood lymphocytes/100 leukoc ytesOrdered By: Renard Burgos on 05-16-2022 Lymphocytes/100 WBC (Bld) 29.0 % 19-41 [facility] Blood monocytes/100 leukocyt esOrdered By: Renard Burgos on 05-16-2022 Monocytes/100 WBC (Bld) 8.2 % 0-10 [facility] Blood platelet mean volumeOr dered By: Renard Burgos on 05-16-2022 Platelet mean volume (Bld) [Entitic vol] 11.1 fL 6.2-12.0 [facility] Determination of erythrocyte mean corpuscular volume (MCV)Ordered By: Renard Burgos on 05-16-2022 MCV (RBC) [Entitic vol] 91.5 fL 80-94 [facility] Hematocrit Auto (Bld) [Volum e fraction]Ordered By: Renard Burgos on 05-16-2022 Hematocrit (Bld) [Volume fraction] 41.9 % 40-54 [facility] - Hematology and Cell countsOrdered By: Renard Burgos on 05-16-2022 Erythrocyte distribution width (RBC) [Entitic vol] 41.3 fL 35.1-43.9 [facility] Erythrocyte distribution width (RBC) [Ratio] 12.5 % 11.6-14.6 [facility] Immature granulocytes/100 WBC (Bld) 0.400 % 0.0-0.9 [facility] Comment on above: IG% - Immature Granu locytes (promyelocytes, myelocytes and metamyelocytes) > 1% indicates that a LEFT SHIFT is Present. MCH (RBC) [Entitic mass] 30.3 pg 27.0-32.0 [facility] Nucleated RBC/100 WBC (Bld) [Ratio] 0 % 0-5 [facility] MCHC Auto (RBC) [Mass/Vol]Or dered By: Renard Burgos on 05-16-2022 MCHC (RBC) [Mass/Vol] 33.2 g/dL 32-36 [facility] Platelets bldOrdered By: Lyubov Burgos on 05-16-2022 Platelets (Bld) [#/Vol] 205 10*3/uL 150-450 [facility] Absolute lymphocyte countOrd ered By: Renard Burgos on 05-09-2022 Lymphocytes Auto (Unsp spec) [#/Vol] 1.92 10*3/uL 0.83-4.51 [facility] Basophil percentageOrdered B y: Renard Burgos on 05-09-2022 Basophils/100 WBC (Bld) 0.7 % 0-1 [facility] Eosinophils/100 WBC (Bld) 0.7 % 0-5 [facility] Neutrophils (Bld) [#/Vol] 4.3 10*3/uL 2.0-7.7 [facility] Neutrophils/100 WBC (Bld) 60.9 % 47-70 [facility] WBC (Bld) [#/Vol] 7.1 10*3/uL 4.4-11.0 [facility] Blood erythrocytes count (nu mber/volume)Ordered By: Renard Burgos on 05-09-2022 RBC (Bld) [#/Vol] 4.67 10*6/uL 4.6-6.2 [facility] Blood hemoglobin measurement (mass/volume)Ordered By: Renard Burgos on 05-09-2022 Hemoglobin (Bld) [Mass/Vol] 14.1 g/dL 13.0-16.5 [facility] Blood lymphocytes/100 leukoc ytesOrdered By: Renard Burgos on 05-09-2022 Lymphocytes/100 WBC (Bld) 27.2 % 19-41 [facility] Blood monocytes/100 leukocyt esOrdered By: Renard Burgos on 05-09-2022 Monocytes/100 WBC (Bld) 10.2 % 0-10 [facility] Blood platelet mean volumeOr dered By: Renard Burgos on 05-09-2022 Platelet mean volume (Bld) [Entitic vol] 11.5 fL 6.2-12.0 [facility] Determination of erythrocyte mean corpuscular volume (MCV)Ordered By: Renard Burgos on 05-09-2022 MCV (RBC) [Entitic vol] 91.0 fL 80-94 [facility] Hematocrit Auto (Bld) [Volum e fraction]Ordered By: Renard Burgos on 05-09-2022 Hematocrit (Bld) [Volume fraction] 42.5 % 40-54 [facility] - Hematology and Cell countsOrdered By: Renard Burgos on 05-09-2022 Erythrocyte distribution width (RBC) [Entitic vol] 41.4 fL 35.1-43.9 [facility] Erythrocyte distribution width (RBC) [Ratio] 12.7 % 11.6-14.6 [facility] Immature granulocytes/100 WBC (Bld) 0.300 % 0.0-0.9 [facility] Comment on above: IG% - Immature Granu locytes (promyelocytes, myelocytes and metamyelocytes) > 1% indicates that a LEFT SHIFT is Present. MCH (RBC) [Entitic mass] 30.2 pg 27.0-32.0 [facility] Nucleated RBC/100 WBC (Bld) [Ratio] 0.4 % 0-5 [facility] MCHC Auto (RBC) [Mass/Vol]Or dered By: Renard Burgos on 05-09-2022 MCHC (RBC) [Mass/Vol] 33.2 g/dL 32-36 [facility] Platelets bldOrdered By: Lyubov Burgos on 05-09-2022 Platelets (Bld) [#/Vol] 202 10*3/uL 150-450 [facility] Absolute lymphocyte countOrd ered By: Renard Burgos on 05-03-2022 Lymphocytes Auto (Unsp spec) [#/Vol] 1.86 10*3/uL 0.83-4.51 [facility] Basophil percentageOrdered B y: Renard Burgos on 05-03-2022 Basophils/100 WBC (Bld) 0.3 % 0-1 [facility] Eosinophils/100 WBC (Bld) 0.3 % 0-5 [facility] Neutrophils (Bld) [#/Vol] 6.4 10*3/uL 2.0-7.7 [facility] Neutrophils/100 WBC (Bld) 71.9 % 47-70 [facility] WBC (Bld) [#/Vol] 8.9 10*3/uL 4.4-11.0 [facility] Blood erythrocytes count (nu mber/volume)Ordered By: Renard Burgos on 05-03-2022 RBC (Bld) [#/Vol] 4.65 10*6/uL 4.6-6.2 [facility] Blood hemoglobin measurement (mass/volume)Ordered By: Renard Burgos on 05-03-2022 Hemoglobin (Bld) [Mass/Vol] 14.5 g/dL 13.0-16.5 [facility] Blood lymphocytes/100 leukoc ytesOrdered By: Renard Burgos on 05-03-2022 Lymphocytes/100 WBC (Bld) 20.9 % 19-41 [facility] Blood monocytes/100 leukocyt esOrdered By: Renard Burgos on 05-03-2022 Monocytes/100 WBC (Bld) 6.2 % 0-10 [facility] Blood platelet mean volumeOr dered By: Renard Burgos on 05-03-2022 Platelet mean volume (Bld) [Entitic vol] 11.1 fL 6.2-12.0 [facility] Determination of erythrocyte mean corpuscular volume (MCV)Ordered By: Renard Burgos on 05-03-2022 MCV (RBC) [Entitic vol] 90.1 fL 80-94 [facility] Hematocrit Auto (Bld) [Volum e fraction]Ordered By: Renard Burgos on 05-03-2022 Hematocrit (Bld) [Volume fraction] 41.9 % 40-54 [facility] - Hematology and Cell countsOrdered By: Renard Burgos on 05-03-2022 Erythrocyte distribution width (RBC) [Entitic vol] 39.7 fL 35.1-43.9 [facility] Erythrocyte distribution width (RBC) [Ratio] 12.2 % 11.6-14.6 [facility] Immature granulocytes/100 WBC (Bld) 0.400 % 0.0-0.9 [facility] Comment on above: IG% - Immature Granu locytes (promyelocytes, myelocytes and metamyelocytes) > 1% indicates that a LEFT SHIFT is Present. MCH (RBC) [Entitic mass] 31.2 pg 27.0-32.0 [facility] Nucleated RBC/100 WBC (Bld) [Ratio] 0 % 0-5 [facility] MCHC Auto (RBC) [Mass/Vol]Or dered By: Renard Burgos on 05-03-2022 MCHC (RBC) [Mass/Vol] 34.6 g/dL 32-36 [facility] Platelets bldOrdered By: Lyubov Burgos on 05-03-2022 Platelets (Bld) [#/Vol] 203 10*3/uL 150-450 [facility] Absolute lymphocyte countOrd ered By: Renard Burgos on 04-26-2022 Lymphocytes Auto (Unsp spec) [#/Vol] 2.79 10*3/uL 0.83-4.51 [facility] Basophil percentageOrdered B y: Renard Burgos on 04-26-2022 Basophils/100 WBC (Bld) 0.4 % 0-1 [facility] Eosinophils/100 WBC (Bld) 0.4 % 0-5 [facility] Neutrophils (Bld) [#/Vol] 5.9 10*3/uL 2.0-7.7 [facility] Neutrophils/100 WBC (Bld) 60.9 % 47-70 [facility] WBC (Bld) [#/Vol] 9.7 10*3/uL 4.4-11.0 [facility] Blood erythrocytes count (nu mber/volume)Ordered By: Renard Burgos on 04-26-2022 RBC (Bld) [#/Vol] 4.92 10*6/uL 4.6-6.2 [facility] Blood hemoglobin measurement (mass/volume)Ordered By: Renard Burgos on 04-26-2022 Hemoglobin (Bld) [Mass/Vol] 15.2 g/dL 13.0-16.5 [facility] Blood lymphocytes/100 leukoc ytesOrdered By: Renard Burgos on 04-26-2022 Lymphocytes/100 WBC (Bld) 28.9 % 19-41 [facility] Blood monocytes/100 leukocyt esOrdered By: Renard Burgos on 04-26-2022 Monocytes/100 WBC (Bld) 9.0 % 0-10 [facility] Blood platelet mean volumeOr dered By: Renard Burgos on 04-26-2022 Platelet mean volume (Bld) [Entitic vol] 11.0 fL 6.2-12.0 [facility] Determination of erythrocyte mean corpuscular volume (MCV)Ordered By: Renard Burgos on 04-26-2022 MCV (RBC) [Entitic vol] 92.3 fL 80-94 [facility] Hematocrit Auto (Bld) [Volum e fraction]Ordered By: Renard Burgos on 04-26-2022 Hematocrit (Bld) [Volume fraction] 45.4 % 40-54 [facility] - Hematology and Cell countsOrdered By: Renard Burgos on 04-26-2022 Erythrocyte distribution width (RBC) [Entitic vol] 42.1 fL 35.1-43.9 [facility] Erythrocyte distribution width (RBC) [Ratio] 12.5 % 11.6-14.6 [facility] Immature granulocytes/100 WBC (Bld) 0.400 % 0.0-0.9 [facility] Comment on above: IG% - Immature Granu locytes (promyelocytes, myelocytes and metamyelocytes) > 1% indicates that a LEFT SHIFT is Present. MCH (RBC) [Entitic mass] 30.9 pg 27.0-32.0 [facility] Nucleated RBC/100 WBC (Bld) [Ratio] 0 % 0-5 [facility] MCHC Auto (RBC) [Mass/Vol]Or dered By: Renard Burgos on 04-26-2022 MCHC (RBC) [Mass/Vol] 33.5 g/dL 32-36 [facility] Platelets bldOrdered By: Pet lizy Burgos on 04-26-2022 Platelets (Bld) [#/Vol] 178 10*3/uL 150-450 [facility] Absolute lymphocyte countOrd ered By: Renard Burgos on 04-18-2022 Lymphocytes Auto (Unsp spec) [#/Vol] 2.03 10*3/uL 0.83-4.51 [facility] Basophil percentageOrdered B y: Renard Burgos on 04-18-2022 Basophils/100 WBC (Bld) 0.6 % 0-1 [facility] Eosinophils/100 WBC (Bld) 0.6 % 0-5 [facility] Neutrophils (Bld) [#/Vol] 4.5 10*3/uL 2.0-7.7 [facility] Neutrophils/100 WBC (Bld) 62.0 % 47-70 [facility] WBC (Bld) [#/Vol] 7.2 10*3/uL 4.4-11.0 [facility] Blood erythrocytes count (nu mber/volume)Ordered By: Renard Burgos on 04-18-2022 RBC (Bld) [#/Vol] 4.67 10*6/uL 4.6-6.2 [facility] Blood hemoglobin measurement (mass/volume)Ordered By: Renard Burgos on 04-18-2022 Hemoglobin (Bld) [Mass/Vol] 14.5 g/dL 13.0-16.5 [facility] Blood lymphocytes/100 leukoc ytesOrdered By: Renard Burgos on 04-18-2022 Lymphocytes/100 WBC (Bld) 28.2 % 19-41 [facility] Blood monocytes/100 leukocyt esOrdered By: Renard Burgos on 04-18-2022 Monocytes/100 WBC (Bld) 8.2 % 0-10 [facility] Blood platelet mean volumeOr dered By: Renard Burgos on 04-18-2022 Platelet mean volume (Bld) [Entitic vol] 11.2 fL 6.2-12.0 [facility] Determination of erythrocyte mean corpuscular volume (MCV)Ordered By: Renard Burgos on 04-18-2022 MCV (RBC) [Entitic vol] 90.8 fL 80-94 [facility] Hematocrit Auto (Bld) [Volum e fraction]Ordered By: Renard Burgos on 04-18-2022 Hematocrit (Bld) [Volume fraction] 42.4 % 40-54 [facility] - Hematology and Cell countsOrdered By: Renard Burgos on 04-18-2022 Erythrocyte distribution width (RBC) [Entitic vol] 41.1 fL 35.1-43.9 [facility] Erythrocyte distribution width (RBC) [Ratio] 12.5 % 11.6-14.6 [facility] Immature granulocytes/100 WBC (Bld) 0.400 % 0.0-0.9 [facility] Comment on above: IG% - Immature Granu locytes (promyelocytes, myelocytes and metamyelocytes) > 1% indicates that a LEFT SHIFT is Present. MCH (RBC) [Entitic mass] 31.0 pg 27.0-32.0 [facility] Nucleated RBC/100 WBC (Bld) [Ratio] 0 % 0-5 [facility] MCHC Auto (RBC) [Mass/Vol]Or dered By: Renard Burgos on 04-18-2022 MCHC (RBC) [Mass/Vol] 34.2 g/dL 32-36 [facility] Platelets bldOrdered By: Lyubov Burgos on 04-18-2022 Platelets (Bld) [#/Vol] 196 10*3/uL 150-450 [facility] Basophil percentageOrdered B y: Renard Burgos on 04-14-2022 Bilirubin [Mass/Vol] 0.40 mg/dL 0.20-1.00 [facility] Comment on above: For patients on eltr ombopag therapy, use of Dimension [place] TBIL is not recommended. Protein [Mass/Vol] 6.3 g/dL 6.4-8.2 [facility] Direct bilirubinOrdered By: Renard Burgos on 04-14-2022 Bilirubin.direct [Mass/Vol] 0.12 mg/dL 0.00-0.30 [facility] - Chemistry and C hemistry - challengeOrdered By: Renard Burgos on 04-14-2022 ALP [Catalytic activity/Vol] 117 U/L 45-117 [facility] ALT [Catalytic activity/Vol] 26 U/L 16-61 [facility] Globulin (S) [Mass/Vol] 3.2 g/dL 2.2-4.2 [facility] Serum or plasma albumin gordy urement (mass/volume)Ordered By: Renard Burgos on 04-14-2022 Albumin [Mass/Vol] 3.1 g/dL 3.2-5.0 [facility] Thin prep Papanicolaou smear with manual screeningOrdered By: Renard Burgos on 04-14-2022 Thin prep Papanicolaou smear with manual screening 12 U/L 15-37 [facility] Absolute lymphocyte countOrd ered By: Renard Burgos on 04-11-2022 Lymphocytes Auto (Unsp spec) [#/Vol] 2.16 10*3/uL 0.83-4.51 [facility] Basophil percentageOrdered B y: Renard Burgos on 04-11-2022 Basophils/100 WBC (Bld) 0.4 % 0-1 [facility] Eosinophils/100 WBC (Bld) 0.4 % 0-5 [facility] Neutrophils (Bld) [#/Vol] 4.2 10*3/uL 2.0-7.7 [facility] Neutrophils/100 WBC (Bld) 61.1 % 47-70 [facility] WBC (Bld) [#/Vol] 6.9 10*3/uL 4.4-11.0 [facility] Blood erythrocytes count (nu mber/volume)Ordered By: Renard Burgos on 04-11-2022 RBC (Bld) [#/Vol] 4.58 10*6/uL 4.6-6.2 [facility] Blood hemoglobin measurement (mass/volume)Ordered By: Renard Burgos on 04-11-2022 Hemoglobin (Bld) [Mass/Vol] 13.9 g/dL 13.0-16.5 [facility] Blood lymphocytes/100 leukoc ytesOrdered By: Renard Burgos on 04-11-2022 Lymphocytes/100 WBC (Bld) 31.2 % 19-41 [facility] Blood monocytes/100 leukocyt esOrdered By: Renard Burgos on 04-11-2022 Monocytes/100 WBC (Bld) 6.5 % 0-10 [facility] Blood platelet mean volumeOr dered By: Renard Burgos on 04-11-2022 Platelet mean volume (Bld) [Entitic vol] 11.4 fL 6.2-12.0 [facility] Determination of erythrocyte mean corpuscular volume (MCV)Ordered By: Renard Burgos on 04-11-2022 MCV (RBC) [Entitic vol] 91.9 fL 80-94 [facility] Hematocrit Auto (Bld) [Volum e fraction]Ordered By: Renard Burgos on 04-11-2022 Hematocrit (Bld) [Volume fraction] 42.1 % 40-54 [facility] - Hematology and Cell countsOrdered By: Renard Burgos on 04-11-2022 Erythrocyte distribution width (RBC) [Entitic vol] 41.5 fL 35.1-43.9 [facility] Erythrocyte distribution width (RBC) [Ratio] 12.3 % 11.6-14.6 [facility] Immature granulocytes/100 WBC (Bld) 0.400 % 0.0-0.9 [facility] Comment on above: IG% - Immature Granu locytes (promyelocytes, myelocytes and metamyelocytes) > 1% indicates that a LEFT SHIFT is Present. MCH (RBC) [Entitic mass] 30.3 pg 27.0-32.0 [facility] Nucleated RBC/100 WBC (Bld) [Ratio] 0 % 0-5 [facility] MCHC Auto (RBC) [Mass/Vol]Or dered By: Renard Burgos on 04-11-2022 MCHC (RBC) [Mass/Vol] 33.0 g/dL 32-36 [facility] Platelets bldOrdered By: Lyubov Burgos on 04-11-2022 Platelets (Bld) [#/Vol] 191 10*3/uL 150-450 [facility] Absolute lymphocyte countOrd ered By: Renard Burgos on 04-04-2022 Lymphocytes Auto (Unsp spec) [#/Vol] 1.99 10*3/uL 0.83-4.51 [facility] Basophil percentageOrdered B y: Renard Burgos on 04-04-2022 Basophils/100 WBC (Bld) 0.4 % 0-1 [facility] Cholesterol [Mass/Vol] 158 mg/dL <200 [facility] Comment on above: <200 mg/dL Desirable 200-240 mg/dL Borderline >240 mg/dL High Risk Eosinophils/100 WBC (Bld) 0.4 % 0-5 [facility] Neutrophils (Bld) [#/Vol] 4.9 10*3/uL 2.0-7.7 [facility] Neutrophils/100 WBC (Bld) 64.2 % 47-70 [facility] Triglyceride [Mass/Vol] 259 mg/dL <199 [facility] Comment on above: The drugs N-Acetylcy steine and Metamizole may falsely depress this assay.Serum Triglycerides Reference Interval Normal <150 mg/dL Borderline high 150 - 199 mg/dL High 200 - 499 mg/dL Very High > or = 500 mg/dL WBC (Bld) [#/Vol] 7.7 10*3/uL 4.4-11.0 [facility] Blood erythrocytes count (nu mber/volume)Ordered By: Renard Burgos on 04-04-2022 RBC (Bld) [#/Vol] 4.63 10*6/uL 4.6-6.2 [facility] Blood hemoglobin measurement (mass/volume)Ordered By: Renard Burgos on 04-04-2022 Hemoglobin (Bld) [Mass/Vol] 14.1 g/dL 13.0-16.5 [facility] Blood lymphocytes/100 leukoc ytesOrdered By: Renard Burgos on 04-04-2022 Lymphocytes/100 WBC (Bld) 25.9 % 19-41 [facility] Blood monocytes/100 leukocyt esOrdered By: Renard Burgos on 04-04-2022 Monocytes/100 WBC (Bld) 8.6 % 0-10 [facility] Blood platelet mean volumeOr dered By: Renard Burgos on 04-04-2022 Platelet mean volume (Bld) [Entitic vol] 11.3 fL 6.2-12.0 [facility] Determination of erythrocyte mean corpuscular volume (MCV)Ordered By: Renard Burgos on 04-04-2022 MCV (RBC) [Entitic vol] 90.7 fL 80-94 [facility] Hematocrit Auto (Bld) [Volum e fraction]Ordered By: Renard Burgos on 04-04-2022 Hematocrit (Bld) [Volume fraction] 42.0 % 40-54 [facility] - Hematology and Cell countsOrdered By: Renard Burgos on 04-04-2022 Erythrocyte distribution width (RBC) [Entitic vol] 41.3 fL 35.1-43.9 [facility] Erythrocyte distribution width (RBC) [Ratio] 12.4 % 11.6-14.6 [facility] Immature granulocytes/100 WBC (Bld) 0.500 % 0.0-0.9 [facility] Comment on above: IG% - Immature Granu locytes (promyelocytes, myelocytes and metamyelocytes) > 1% indicates that a LEFT SHIFT is Present. MCH (RBC) [Entitic mass] 30.5 pg 27.0-32.0 [facility] Nucleated RBC/100 WBC (Bld) [Ratio] 0 % 0-5 [facility] MCHC Auto (RBC) [Mass/Vol]Or dered By: Renard Burgos on 04-04-2022 MCHC (RBC) [Mass/Vol] 33.6 g/dL 32-36 [facility] Platelets bldOrdered By: Lyubov Burgos on 04-04-2022 Platelets (Bld) [#/Vol] 174 10*3/uL 150-450 [facility] Serum or plasma cholesterol in HDL measurement (mass/volume)Ordered By: Renard Burgos on 04-04-2022 Cholesterol in HDL [Mass/Vol] 26 mg/dL >40 [facility] Comment on above: The drugs N-Acetylcy steine and Metamizole may falsely depress this assay. Reference Range HDL <40 mg/dL Low HDL Cholesterol HDL >or= 60 mg/dL High HDL Cholesterol Serum or plasma cholesterol in VLDL measurement (mass/volume)Ordered By: Renard Burgos on 04-04-2022 Cholesterol in VLDL [Mass/Vol] 52 mg/dL 5-40 [facility] Serum or plasma low density lipoprotein (LDL) cholesterol measurement (mass/volume)Ordered By: Renard Burgos on 04-04-2022 Cholesterol in LDL [Mass/Vol] 80 mg/dL 0-130 [facility] Absolute lymphocyte countOrd ered By: Renard Burgos on 03-28-2022 Lymphocytes Auto (Unsp spec) [#/Vol] 2.25 10*3/uL 0.83-4.51 [facility] Basophil percentageOrdered B y: Renard Burgos on 03-28-2022 Basophils/100 WBC (Bld) 0.6 % 0-1 [facility] Eosinophils/100 WBC (Bld) 0.5 % 0-5 [facility] Neutrophils (Bld) [#/Vol] 4.8 10*3/uL 2.0-7.7 [facility] Neutrophils/100 WBC (Bld) 60.5 % 47-70 [facility] WBC (Bld) [#/Vol] 8.0 10*3/uL 4.4-11.0 [facility] Blood erythrocytes count (nu mber/volume)Ordered By: Renard Burgos on 03-28-2022 RBC (Bld) [#/Vol] 4.69 10*6/uL 4.6-6.2 [facility] Blood hemoglobin measurement (mass/volume)Ordered By: Renard Burgos on 03-28-2022 Hemoglobin (Bld) [Mass/Vol] 14.4 g/dL 13.0-16.5 [facility] Blood lymphocytes/100 leukoc ytesOrdered By: Renard Burgos on 03-28-2022 Lymphocytes/100 WBC (Bld) 28.1 % 19-41 [facility] Blood monocytes/100 leukocyt esOrdered By: Renard Burgos on 03-28-2022 Monocytes/100 WBC (Bld) 9.8 % 0-10 [facility] Blood platelet mean volumeOr dered By: Renard Burgos on 03-28-2022 Platelet mean volume (Bld) [Entitic vol] 10.8 fL 6.2-12.0 [facility] Determination of erythrocyte mean corpuscular volume (MCV)Ordered By: Renard Burgos on 03-28-2022 MCV (RBC) [Entitic vol] 92.1 fL 80-94 [facility] Hematocrit Auto (Bld) [Volum e fraction]Ordered By: Renard Burgos on 03-28-2022 Hematocrit (Bld) [Volume fraction] 43.2 % 40-54 [facility] - Hematology and Cell countsOrdered By: Renard Burgos on 03-28-2022 Erythrocyte distribution width (RBC) [Entitic vol] 42.0 fL 35.1-43.9 [facility] Erythrocyte distribution width (RBC) [Ratio] 12.5 % 11.6-14.6 [facility] Immature granulocytes/100 WBC (Bld) 0.500 % 0.0-0.9 [facility] Comment on above: IG% - Immature Granu locytes (promyelocytes, myelocytes and metamyelocytes) > 1% indicates that a LEFT SHIFT is Present. MCH (RBC) [Entitic mass] 30.7 pg 27.0-32.0 [facility] Nucleated RBC/100 WBC (Bld) [Ratio] 0 % 0-5 [facility] MCHC Auto (RBC) [Mass/Vol]Or dered By: Renard Burgos on 03-28-2022 MCHC (RBC) [Mass/Vol] 33.3 g/dL 32-36 [facility] Platelets bldOrdered By: Lyubov Burgos on 03-28-2022 Platelets (Bld) [#/Vol] 207 10*3/uL 150-450 [facility] Absolute lymphocyte countOrd ered By: Renard Burgos on 03-21-2022 Lymphocytes Auto (Unsp spec) [#/Vol] 1.98 10*3/uL 0.83-4.51 [facility] Basophil percentageOrdered B y: Renard Burgos on 03-21-2022 Basophils/100 WBC (Bld) 0.5 % 0-1 [facility] Eosinophils/100 WBC (Bld) 0.5 % 0-5 [facility] Neutrophils (Bld) [#/Vol] 4.9 10*3/uL 2.0-7.7 [facility] Neutrophils/100 WBC (Bld) 63.6 % 47-70 [facility] WBC (Bld) [#/Vol] 7.7 10*3/uL 4.4-11.0 [facility] Blood erythrocytes count (nu mber/volume)Ordered By: Renard Burgos on 03-21-2022 RBC (Bld) [#/Vol] 4.82 10*6/uL 4.6-6.2 [facility] Blood hemoglobin measurement (mass/volume)Ordered By: Renard Burgos on 03-21-2022 Hemoglobin (Bld) [Mass/Vol] 14.9 g/dL 13.0-16.5 [facility] Blood lymphocytes/100 leukoc ytesOrdered By: Renard Burgos on 03-21-2022 Lymphocytes/100 WBC (Bld) 25.7 % 19-41 [facility] Blood monocytes/100 leukocyt esOrdered By: Renard Burgos on 03-21-2022 Monocytes/100 WBC (Bld) 9.3 % 0-10 [facility] Blood platelet mean volumeOr dered By: Renard Burgos on 03-21-2022 Platelet mean volume (Bld) [Entitic vol] 10.8 fL 6.2-12.0 [facility] Determination of erythrocyte mean corpuscular volume (MCV)Ordered By: Renard Burgos on 03-21-2022 MCV (RBC) [Entitic vol] 90.7 fL 80-94 [facility] Hematocrit Auto (Bld) [Volum e fraction]Ordered By: Renard Burgos on 03-21-2022 Hematocrit (Bld) [Volume fraction] 43.7 % 40-54 [facility] - Hematology and Cell countsOrdered By: Renard Burgos on 03-21-2022 Erythrocyte distribution width (RBC) [Entitic vol] 40.8 fL 35.1-43.9 [facility] Erythrocyte distribution width (RBC) [Ratio] 12.4 % 11.6-14.6 [facility] Immature granulocytes/100 WBC (Bld) 0.400 % 0.0-0.9 [facility] Comment on above: IG% - Immature Granu locytes (promyelocytes, myelocytes and metamyelocytes) > 1% indicates that a LEFT SHIFT is Present. MCH (RBC) [Entitic mass] 30.9 pg 27.0-32.0 [facility] Nucleated RBC/100 WBC (Bld) [Ratio] 0 % 0-5 [facility] MCHC Auto (RBC) [Mass/Vol]Or dered By: Renard Burgos on 03-21-2022 MCHC (RBC) [Mass/Vol] 34.1 g/dL 32-36 [facility] Platelets bldOrdered By: Lyubov Burgos on 03-21-2022 Platelets (Bld) [#/Vol] 186 10*3/uL 150-450 [facility] Absolute lymphocyte countOrd ered By: Renard Burgos on 03-14-2022 Lymphocytes Auto (Unsp spec) [#/Vol] 2.18 10*3/uL 0.83-4.51 [facility] Basophil percentageOrdered B y: Renard Burgos on 03-14-2022 Basophils/100 WBC (Bld) 0.4 % 0-1 [facility] Eosinophils/100 WBC (Bld) 0.6 % 0-5 [facility] Neutrophils (Bld) [#/Vol] 4.3 10*3/uL 2.0-7.7 [facility] Neutrophils/100 WBC (Bld) 58.8 % 47-70 [facility] WBC (Bld) [#/Vol] 7.3 10*3/uL 4.4-11.0 [facility] Blood erythrocytes count (nu mber/volume)Ordered By: Renard Burgos on 03-14-2022 RBC (Bld) [#/Vol] 4.80 10*6/uL 4.6-6.2 [facility] Blood hemoglobin measurement (mass/volume)Ordered By: Renard Burgos on 03-14-2022 Hemoglobin (Bld) [Mass/Vol] 14.5 g/dL 13.0-16.5 [facility] Blood lymphocytes/100 leukoc ytesOrdered By: Renadr Burgos on 03-14-2022 Lymphocytes/100 WBC (Bld) 30.1 % 19-41 [facility] Blood monocytes/100 leukocyt esOrdered By: Renard Burgos on 03-14-2022 Monocytes/100 WBC (Bld) 9.5 % 0-10 [facility] Blood platelet mean volumeOr dered By: Renard Burgos on 03-14-2022 Platelet mean volume (Bld) [Entitic vol] 11.0 fL 6.2-12.0 [facility] Determination of erythrocyte mean corpuscular volume (MCV)Ordered By: Renard Burgos on 03-14-2022 MCV (RBC) [Entitic vol] 91.5 fL 80-94 [facility] Hematocrit Auto (Bld) [Volum e fraction]Ordered By: Renard Burgos on 03-14-2022 Hematocrit (Bld) [Volume fraction] 43.9 % 40-54 [facility] - Hematology and Cell countsOrdered By: Renard Burgos on 03-14-2022 Erythrocyte distribution width (RBC) [Entitic vol] 41.1 fL 35.1-43.9 [facility] Erythrocyte distribution width (RBC) [Ratio] 12.4 % 11.6-14.6 [facility] Immature granulocytes/100 WBC (Bld) 0.600 % 0.0-0.9 [facility] Comment on above: IG% - Immature Granu locytes (promyelocytes, myelocytes and metamyelocytes) > 1% indicates that a LEFT SHIFT is Present. MCH (RBC) [Entitic mass] 30.2 pg 27.0-32.0 [facility] Nucleated RBC/100 WBC (Bld) [Ratio] 0 % 0-5 [facility] MCHC Auto (RBC) [Mass/Vol]Or dered By: Renard Burgos on 03-14-2022 MCHC (RBC) [Mass/Vol] 33.0 g/dL 32-36 [facility] Platelets bldOrdered By: Lyubov Burgos on 03-14-2022 Platelets (Bld) [#/Vol] 201 10*3/uL 150-450 [facility] Absolute lymphocyte countOrd ered By: Renard Burgos on 11-07-2022 Lymphocytes Auto (Unsp spec) [#/Vol] 1.97 10*3/uL 0.83-4.51 [facility] Basophil percentageOrdered B y: Renard Burgos on 2022 Basophils/100 WBC (Bld) 0.6 % 0-1 [facility] Eosinophils/100 WBC (Bld) 0.4 % 0-5 [facility] Neutrophils (Bld) [#/Vol] 4.3 10*3/uL 2.0-7.7 [facility] Neutrophils/100 WBC (Bld) 61.3 % 47-70 [facility] WBC (Bld) [#/Vol] 7.0 10*3/uL 4.4-11.0 [facility] Blood erythrocytes count (nu mber/volume)Ordered By: Renard Burgos on 2022 RBC (Bld) [#/Vol] 4.78 10*6/uL 4.6-6.2 [facility] Blood hemoglobin measurement (mass/volume)Ordered By: Renard Burgos on 2022 Hemoglobin (Bld) [Mass/Vol] 14.4 g/dL 13.0-16.5 [facility] Blood lymphocytes/100 leukoc ytesOrdered By: Renard Burgos on 2022 Lymphocytes/100 WBC (Bld) 28.3 % 19-41 [facility] Blood monocytes/100 leukocyt esOrdered By: Renard Burgos on 2022 Monocytes/100 WBC (Bld) 9.1 % 0-10 [facility] Blood platelet mean volumeOr dered By: Renard Burgos on 2022 Platelet mean volume (Bld) [Entitic vol] 11.1 fL 6.2-12.0 [facility] Determination of erythrocyte mean corpuscular volume (MCV)Ordered By: Renard Burgos on 2022 MCV (RBC) [Entitic vol] 91.2 fL 80-94 [facility] Hematocrit Auto (Bld) [Volum e fraction]Ordered By: Renard Burgos on 2022 Hematocrit (Bld) [Volume fraction] 43.6 % 40-54 [facility] - Hematology and Cell countsOrdered By: Renard Burgos on 2022 Erythrocyte distribution width (RBC) [Entitic vol] 42.0 fL 35.1-43.9 [facility] Erythrocyte distribution width (RBC) [Ratio] 12.6 % 11.6-14.6 [facility] Immature granulocytes/100 WBC (Bld) 0.300 % 0.0-0.9 [facility] Comment on above: IG% - Immature Granu locytes (promyelocytes, myelocytes and metamyelocytes) > 1% indicates that a LEFT SHIFT is Present. MCH (RBC) [Entitic mass] 30.1 pg 27.0-32.0 [facility] Nucleated RBC/100 WBC (Bld) [Ratio] 0 % 0-5 [facility] MCHC Auto (RBC) [Mass/Vol]Or dered By: Renard Burgos on 2022 MCHC (RBC) [Mass/Vol] 33.0 g/dL 32-36 [facility] Platelets bldOrdered By: Lyubov Burgos on 2022 Platelets (Bld) [#/Vol] 210 10*3/uL 150-450 [facility] Absolute lymphocyte countOrd ered By: Renard Burgos on 02-28-2022 Lymphocytes Auto (Unsp spec) [#/Vol] 1.85 10*3/uL 0.83-4.51 [facility] Basophil percentageOrdered B y: Renard Burgos on 02-28-2022 Basophils/100 WBC (Bld) 0.4 % 0-1 [facility] Eosinophils/100 WBC (Bld) 0.4 % 0-5 [facility] Neutrophils (Bld) [#/Vol] 5.3 10*3/uL 2.0-7.7 [facility] Neutrophils/100 WBC (Bld) 67.8 % 47-70 [facility] WBC (Bld) [#/Vol] 7.8 10*3/uL 4.4-11.0 [facility] Blood erythrocytes count (nu mber/volume)Ordered By: Renard Burgos on 02-28-2022 RBC (Bld) [#/Vol] 4.58 10*6/uL 4.6-6.2 [facility] Blood hemoglobin measurement (mass/volume)Ordered By: Renard Burgos on 02-28-2022 Hemoglobin (Bld) [Mass/Vol] 14.3 g/dL 13.0-16.5 [facility] Blood lymphocytes/100 leukoc ytesOrdered By: Renard Burgos on 02-28-2022 Lymphocytes/100 WBC (Bld) 23.8 % 19-41 [facility] Blood monocytes/100 leukocyt esOrdered By: Renard Burgos on 02-28-2022 Monocytes/100 WBC (Bld) 7.2 % 0-10 [facility] Blood platelet mean volumeOr dered By: Renard Burgos on 02-28-2022 Platelet mean volume (Bld) [Entitic vol] 10.8 fL 6.2-12.0 [facility] Determination of erythrocyte mean corpuscular volume (MCV)Ordered By: Renard Bugros on 02-28-2022 MCV (RBC) [Entitic vol] 91.5 fL 80-94 [facility] Hematocrit Auto (Bld) [Volum e fraction]Ordered By: Renard Burgos on 02-28-2022 Hematocrit (Bld) [Volume fraction] 41.9 % 40-54 [facility] - Hematology and Cell countsOrdered By: Renard Burgos on 02-28-2022 Erythrocyte distribution width (RBC) [Entitic vol] 42.2 fL 35.1-43.9 [facility] Erythrocyte distribution width (RBC) [Ratio] 12.7 % 11.6-14.6 [facility] Immature granulocytes/100 WBC (Bld) 0.400 % 0.0-0.9 [facility] Comment on above: IG% - Immature Granu locytes (promyelocytes, myelocytes and metamyelocytes) > 1% indicates that a LEFT SHIFT is Present. MCH (RBC) [Entitic mass] 31.2 pg 27.0-32.0 [facility] Nucleated RBC/100 WBC (Bld) [Ratio] 0 % 0-5 [facility] MCHC Auto (RBC) [Mass/Vol]Or dered By: Renard Burgos on 02-28-2022 MCHC (RBC) [Mass/Vol] 34.1 g/dL 32-36 [facility] Platelets bldOrdered By: Lyubov Burgos on 02-28-2022 Platelets (Bld) [#/Vol] 202 10*3/uL 150-450 [facility] Absolute lymphocyte countOrd ered By: Renard Burgos on 02-21-2022 Lymphocytes Auto (Unsp spec) [#/Vol] 1.93 10*3/uL 0.83-4.51 [facility] Basophil percentageOrdered B y: Renard Burgos on 02-21-2022 Basophils/100 WBC (Bld) 0.4 % 0-1 [facility] Eosinophils/100 WBC (Bld) 0.4 % 0-5 [facility] Neutrophils (Bld) [#/Vol] 4.6 10*3/uL 2.0-7.7 [facility] Neutrophils/100 WBC (Bld) 63.4 % 47-70 [facility] WBC (Bld) [#/Vol] 7.2 10*3/uL 4.4-11.0 [facility] Blood erythrocytes count (nu mber/volume)Ordered By: Renard Burgos on 02-21-2022 RBC (Bld) [#/Vol] 4.54 10*6/uL 4.6-6.2 [facility] Blood hemoglobin measurement (mass/volume)Ordered By: Renard Burgos on 02-21-2022 Hemoglobin (Bld) [Mass/Vol] 14.1 g/dL 13.0-16.5 [facility] Blood lymphocytes/100 leukoc ytesOrdered By: Renard Burgos on 02-21-2022 Lymphocytes/100 WBC (Bld) 26.7 % 19-41 [facility] Blood monocytes/100 leukocyt esOrdered By: Renard Burgos on 02-21-2022 Monocytes/100 WBC (Bld) 8.8 % 0-10 [facility] Blood platelet mean volumeOr dered By: Renard Burgos on 02-21-2022 Platelet mean volume (Bld) [Entitic vol] 11.1 fL 6.2-12.0 [facility] Determination of erythrocyte mean corpuscular volume (MCV)Ordered By: Renard Burgos on 02-21-2022 MCV (RBC) [Entitic vol] 91.4 fL 80-94 [facility] Hematocrit Auto (Bld) [Volum e fraction]Ordered By: Renard Burgos on 02-21-2022 Hematocrit (Bld) [Volume fraction] 41.5 % 40-54 [facility] - Hematology and Cell countsOrdered By: Renard Burgos on 02-21-2022 Erythrocyte distribution width (RBC) [Entitic vol] 41.9 fL 35.1-43.9 [facility] Erythrocyte distribution width (RBC) [Ratio] 12.6 % 11.6-14.6 [facility] Immature granulocytes/100 WBC (Bld) 0.300 % 0.0-0.9 [facility] Comment on above: IG% - Immature Granu locytes (promyelocytes, myelocytes and metamyelocytes) > 1% indicates that a LEFT SHIFT is Present. MCH (RBC) [Entitic mass] 31.1 pg 27.0-32.0 [facility] Nucleated RBC/100 WBC (Bld) [Ratio] 0 % 0-5 [facility] MCHC Auto (RBC) [Mass/Vol]Or dered By: Renard Burgos on 02-21-2022 MCHC (RBC) [Mass/Vol] 34.0 g/dL 32-36 [facility] Platelets bldOrdered By: Lyubov Burgos on 02-21-2022 Platelets (Bld) [#/Vol] 189 10*3/uL 150-450 [facility] Absolute lymphocyte countOrd ered By: Renard Burgos on 02-14-2022 Lymphocytes Auto (Unsp spec) [#/Vol] 2.00 10*3/uL 0.83-4.51 [facility] Basophil percentageOrdered B y: Renard Burgos on 02-14-2022 Basophils/100 WBC (Bld) 0.6 % 0-1 [facility] Eosinophils/100 WBC (Bld) 0.3 % 0-5 [facility] Neutrophils (Bld) [#/Vol] 6.4 10*3/uL 2.0-7.7 [facility] Neutrophils/100 WBC (Bld) 69.5 % 47-70 [facility] WBC (Bld) [#/Vol] 9.3 10*3/uL 4.4-11.0 [facility] Blood erythrocytes count (nu mber/volume)Ordered By: Renard Burgos on 02-14-2022 RBC (Bld) [#/Vol] 4.65 10*6/uL 4.6-6.2 [facility] Blood hemoglobin measurement (mass/volume)Ordered By: Renard Burgos on 02-14-2022 Hemoglobin (Bld) [Mass/Vol] 14.6 g/dL 13.0-16.5 [facility] Blood lymphocytes/100 leukoc ytesOrdered By: Renard Burgos on 02-14-2022 Lymphocytes/100 WBC (Bld) 21.6 % 19-41 [facility] Blood monocytes/100 leukocyt esOrdered By: Renard Burgos on 02-14-2022 Monocytes/100 WBC (Bld) 7.6 % 0-10 [facility] Blood platelet mean volumeOr dered By: Renard Burgos on 02-14-2022 Platelet mean volume (Bld) [Entitic vol] 11.1 fL 6.2-12.0 [facility] Determination of erythrocyte mean corpuscular volume (MCV)Ordered By: Renard Burgos on 02-14-2022 MCV (RBC) [Entitic vol] 91.8 fL 80-94 [facility] Hematocrit Auto (Bld) [Volum e fraction]Ordered By: Renard Burgos on 02-14-2022 Hematocrit (Bld) [Volume fraction] 42.7 % 40-54 [facility] - Hematology and Cell countsOrdered By: Renard Burgos on 02-14-2022 Erythrocyte distribution width (RBC) [Entitic vol] 43.7 fL 35.1-43.9 [facility] Erythrocyte distribution width (RBC) [Ratio] 13.0 % 11.6-14.6 [facility] Immature granulocytes/100 WBC (Bld) 0.400 % 0.0-0.9 [facility] Comment on above: IG% - Immature Granu locytes (promyelocytes, myelocytes and metamyelocytes) > 1% indicates that a LEFT SHIFT is Present. MCH (RBC) [Entitic mass] 31.4 pg 27.0-32.0 [facility] Nucleated RBC/100 WBC (Bld) [Ratio] 0 % 0-5 [facility] MCHC Auto (RBC) [Mass/Vol]Or dered By: Renard Burgos on 02-14-2022 MCHC (RBC) [Mass/Vol] 34.2 g/dL 32-36 [facility] Platelets bldOrdered By: Lyubov Burgos on 02-14-2022 Platelets (Bld) [#/Vol] 187 10*3/uL 150-450 [facility] Absolute lymphocyte countOrd ered By: Renard Burgos on 02-07-2022 Lymphocytes Auto (Unsp spec) [#/Vol] 1.97 10*3/uL 0.83-4.51 [facility] Basophil percentageOrdered B y: Renard Burgos on 02-07-2022 Basophils/100 WBC (Bld) 0.4 % 0-1 [facility] Eosinophils/100 WBC (Bld) 0.3 % 0-5 [facility] Neutrophils (Bld) [#/Vol] 4.2 10*3/uL 2.0-7.7 [facility] Neutrophils/100 WBC (Bld) 61.8 % 47-70 [facility] WBC (Bld) [#/Vol] 6.8 10*3/uL 4.4-11.0 [facility] Blood erythrocytes count (nu mber/volume)Ordered By: Renard Burgos on 02-07-2022 RBC (Bld) [#/Vol] 4.86 10*6/uL 4.6-6.2 [facility] Blood hemoglobin measurement (mass/volume)Ordered By: Renard Burgos on 02-07-2022 Hemoglobin (Bld) [Mass/Vol] 15.4 g/dL 13.0-16.5 [facility] Blood lymphocytes/100 leukoc ytesOrdered By: Renard Burgos on 02-07-2022 Lymphocytes/100 WBC (Bld) 29.1 % 19-41 [facility] Blood monocytes/100 leukocyt esOrdered By: Renard Burgos on 02-07-2022 Monocytes/100 WBC (Bld) 8.1 % 0-10 [facility] Blood platelet mean volumeOr dered By: Renard Burgos on 02-07-2022 Platelet mean volume (Bld) [Entitic vol] 11.0 fL 6.2-12.0 [facility] Determination of erythrocyte mean corpuscular volume (MCV)Ordered By: Renard Burgos on 02-07-2022 MCV (RBC) [Entitic vol] 92.6 fL 80-94 [facility] Hematocrit Auto (Bld) [Volum e fraction]Ordered By: Renard Burgos on 02-07-2022 Hematocrit (Bld) [Volume fraction] 45.0 % 40-54 [facility] - Hematology and Cell countsOrdered By: Renard Burgos on 02-07-2022 Erythrocyte distribution width (RBC) [Entitic vol] 43.1 fL 35.1-43.9 [facility] Erythrocyte distribution width (RBC) [Ratio] 12.7 % 11.6-14.6 [facility] Immature granulocytes/100 WBC (Bld) 0.300 % 0.0-0.9 [facility] Comment on above: IG% - Immature Granu locytes (promyelocytes, myelocytes and metamyelocytes) > 1% indicates that a LEFT SHIFT is Present. MCH (RBC) [Entitic mass] 31.7 pg 27.0-32.0 [facility] Nucleated RBC/100 WBC (Bld) [Ratio] 0 % 0-5 [facility] MCHC Auto (RBC) [Mass/Vol]Or dered By: Renard Burgos on 02-07-2022 MCHC (RBC) [Mass/Vol] 34.2 g/dL 32-36 [facility] Platelets bldOrdered By: Lyubov Burgos on 02-07-2022 Platelets (Bld) [#/Vol] 196 10*3/uL 150-450 [facility] Absolute lymphocyte countOrd ered By: Renard Burgos on 01-31-2022 Lymphocytes Auto (Unsp spec) [#/Vol] 2.19 10*3/uL 0.83-4.51 [facility] Basophil percentageOrdered B y: Renard Burgos on 01-31-2022 Basophils/100 WBC (Bld) 0.3 % 0-1 [facility] Eosinophils/100 WBC (Bld) 0.2 % 0-5 [facility] Neutrophils (Bld) [#/Vol] 5.7 10*3/uL 2.0-7.7 [facility] Neutrophils/100 WBC (Bld) 64.9 % 47-70 [facility] WBC (Bld) [#/Vol] 8.8 10*3/uL 4.4-11.0 [facility] Blood erythrocytes count (nu mber/volume)Ordered By: Renard Burgos on 01-31-2022 RBC (Bld) [#/Vol] 4.81 10*6/uL 4.6-6.2 [facility] Blood hemoglobin measurement (mass/volume)Ordered By: Renard Burgos on 01-31-2022 Hemoglobin (Bld) [Mass/Vol] 14.9 g/dL 13.0-16.5 [facility] Blood lymphocytes/100 leukoc ytesOrdered By: Renard Burgos on 01-31-2022 Lymphocytes/100 WBC (Bld) 24.9 % 19-41 [facility] Blood monocytes/100 leukocyt esOrdered By: Renard Burgos on 01-31-2022 Monocytes/100 WBC (Bld) 9.2 % 0-10 [facility] Blood platelet mean volumeOr dered By: Renard Burgos on 01-31-2022 Platelet mean volume (Bld) [Entitic vol] 11.0 fL 6.2-12.0 [facility] Determination of erythrocyte mean corpuscular volume (MCV)Ordered By: Renard Burgos on 01-31-2022 MCV (RBC) [Entitic vol] 92.9 fL 80-94 [facility] Hematocrit Auto (Bld) [Volum e fraction]Ordered By: Renard Burgos on 01-31-2022 Hematocrit (Bld) [Volume fraction] 44.7 % 40-54 [facility] - Hematology and Cell countsOrdered By: Renard Burgos on 01-31-2022 Erythrocyte distribution width (RBC) [Entitic vol] 42.9 fL 35.1-43.9 [facility] Erythrocyte distribution width (RBC) [Ratio] 12.6 % 11.6-14.6 [facility] Immature granulocytes/100 WBC (Bld) 0.500 % 0.0-0.9 [facility] Comment on above: IG% - Immature Granu locytes (promyelocytes, myelocytes and metamyelocytes) > 1% indicates that a LEFT SHIFT is Present. MCH (RBC) [Entitic mass] 31.0 pg 27.0-32.0 [facility] Nucleated RBC/100 WBC (Bld) [Ratio] 0 % 0-5 [facility] MCHC Auto (RBC) [Mass/Vol]Or dered By: Renard Burgos on 01-31-2022 MCHC (RBC) [Mass/Vol] 33.3 g/dL 32-36 [facility] Platelets bldOrdered By: Lyubov Burgos on 01-31-2022 Platelets (Bld) [#/Vol] 204 10*3/uL 150-450 [facility] Absolute lymphocyte countOrd ered By: Renard Burgos on 01-24-2022 Lymphocytes Auto (Unsp spec) [#/Vol] 1.82 10*3/uL 0.83-4.51 [facility] Basophil percentageOrdered B y: Renard Burgos on 01-24-2022 Basophils/100 WBC (Bld) 0.3 % 0-1 [facility] Eosinophils/100 WBC (Bld) 0.3 % 0-5 [facility] Neutrophils (Bld) [#/Vol] 6.1 10*3/uL 2.0-7.7 [facility] Neutrophils/100 WBC (Bld) 69.9 % 47-70 [facility] WBC (Bld) [#/Vol] 8.7 10*3/uL 4.4-11.0 [facility] Blood erythrocytes count (nu mber/volume)Ordered By: Renard Burgos on 01-24-2022 RBC (Bld) [#/Vol] 4.74 10*6/uL 4.6-6.2 [facility] Blood hemoglobin measurement (mass/volume)Ordered By: Renard Burgos on 01-24-2022 Hemoglobin (Bld) [Mass/Vol] 14.5 g/dL 13.0-16.5 [facility] Blood lymphocytes/100 leukoc ytesOrdered By: Renard Burgos on 01-24-2022 Lymphocytes/100 WBC (Bld) 20.9 % 19-41 [facility] Blood monocytes/100 leukocyt esOrdered By: Renard Burgos on 01-24-2022 Monocytes/100 WBC (Bld) 8.4 % 0-10 [facility] Blood platelet mean volumeOr dered By: Renard Burgos on 01-24-2022 Platelet mean volume (Bld) [Entitic vol] 10.9 fL 6.2-12.0 [facility] Determination of erythrocyte mean corpuscular volume (MCV)Ordered By: Renard Burgos on 01-24-2022 MCV (RBC) [Entitic vol] 92.0 fL 80-94 [facility] Hematocrit Auto (Bld) [Volum e fraction]Ordered By: Renard Burgos on 01-24-2022 Hematocrit (Bld) [Volume fraction] 43.6 % 40-54 [facility] - Hematology and Cell countsOrdered By: Renard Burgos on 01-24-2022 Erythrocyte distribution width (RBC) [Entitic vol] 42.3 fL 35.1-43.9 [facility] Erythrocyte distribution width (RBC) [Ratio] 12.5 % 11.6-14.6 [facility] Immature granulocytes/100 WBC (Bld) 0.200 % 0.0-0.9 [facility] Comment on above: IG% - Immature Granu locytes (promyelocytes, myelocytes and metamyelocytes) > 1% indicates that a LEFT SHIFT is Present. MCH (RBC) [Entitic mass] 30.6 pg 27.0-32.0 [facility] Nucleated RBC/100 WBC (Bld) [Ratio] 0 % 0-5 [facility] MCHC Auto (RBC) [Mass/Vol]Or dered By: Renard Bugros on 01-24-2022 MCHC (RBC) [Mass/Vol] 33.3 g/dL 32-36 [facility] Platelets bldOrdered By: Lyubov Burgos on 01-24-2022 Platelets (Bld) [#/Vol] 192 10*3/uL 150-450 [facility] Absolute lymphocyte counton 01-17-2022 Lymphocytes Auto (Unsp spec) [#/Vol] 1.89 10*3/uL 0.83-4.51 [facility] Work Phone: Basophil percentageon 2021 Basophils/100 WBC (Bld) 0.4 % 0-1 [facility] Work Phone: Eosinophils/100 WBC (Bld) 0.3 % 0-5 [facility] Work Phone: Neutrophils (Bld) [#/Vol] 4.4 10*3/uL 2.0-7.7 [facility] Work Phone: Neutrophils/100 WBC (Bld) 62.4 % 47-70 [facility] Work Phone: WBC (Bld) [#/Vol] 7.0 10*3/uL 4.4-11.0 [facility]: Blood erythrocytes count (nu mber/volume)on 01-17-2022 RBC (Bld) [#/Vol] 4.64 10*6/uL 4.6-6.2 [facility] Work [facility]: Blood hemoglobin measurement (mass/volume)on 01-17-2022 Hemoglobin (Bld) [Mass/Vol] 14.1 g/dL 13.0-16.5 [facility] Work Phone: Blood lymphocytes/100 leukoc yteson 01-17-2022 Lymphocytes/100 WBC (Bld) 27.0 % 19-41 [facility] Work Phone: Blood monocytes/100 leukocyt eson 01-17-2022 Monocytes/100 WBC (Bld) 9.3 % 0-10 [facility] Work Phone: Blood platelet mean volumeon 01-17-2022 Platelet mean volume (Bld) [Entitic vol] 11.1 fL 6.2-12.0 [facility] Work Phone: Determination of erythrocyte mean corpuscular volume (MCV)on 01-17-2022 MCV (RBC) [Entitic vol] 91.8 fL 80-94 [facility] Work Phone: Hematocrit Auto (Bld) [Volum e fraction]on 01-17-2022 Hematocrit (Bld) [Volume fraction] 42.6 % 40-54 [facility] Work Phone: Laboratory - Hematology and Cell countson 01-17-2022 Erythrocyte distribution width (RBC) [Entitic vol] 41.5 fL 35.1-43.9 [facility] Work Phone: Erythrocyte distribution width (RBC) [Ratio] 12.5 % 11.6-14.6 [facility] Work Phone: Immature granulocytes/100 WBC (Bld) 0.600 % 0.0-0.9 [facility] Work Phone: Comment on above: IG% - Immature Granu locytes (promyelocytes, myelocytes and metamyelocytes) > 1% indicates that a LEFT SHIFT is Present. MCH (RBC) [Entitic mass] 30.4 pg 27.0-32.0 [facility] Work Phone: Nucleated RBC/100 WBC (Bld) [Ratio] 0 % 0-5 [facility] Work Phone: MCHC Auto (RBC) [Mass/Vol]on 01-17-2022 MCHC (RBC) [Mass/Vol] 33.1 g/dL 32-36 [facility] Work Phone: [phone] Platelets bldon 01-17-2022 Platelets (Bld) [#/Vol] 200 10*3/uL 150-450 [facility] Work Phone: Absolute lymphocyte counton 01-10-2022 Lymphocytes Auto (Unsp spec) [#/Vol] 2.07 10*3/uL 0.83-4.51 [facility] Work Phone: [phone] Basophil percentageon 2021 Basophils/100 WBC (Bld) 0.6 % 0-1 [facility] Work Phone: Eosinophils/100 WBC (Bld) 0.3 % 0-5 [facility] Work Phone: Neutrophils (Bld) [#/Vol] 4.2 10*3/uL 2.0-7.7 [facility] Work Phone: Neutrophils/100 WBC (Bld) 59.2 % 47-70 [facility] Work Phone: WBC (Bld) [#/Vol] 7.0 10*3/uL 4.4-11.0 [facility] Work [facility]: Blood erythrocytes count (nu mber/volume)on 01-10-2022 RBC (Bld) [#/Vol] 4.83 10*6/uL 4.6-6.2 [facility] Work Phone: Blood hemoglobin measurement (mass/volume)on 01-10-2022 Hemoglobin (Bld) [Mass/Vol] 14.8 g/dL 13.0-16.5 [facility] Work Phone: Blood lymphocytes/100 leukoc yteson 01-10-2022 Lymphocytes/100 WBC (Bld) 29.5 % 19-41 [facility] Work Phone: Blood monocytes/100 leukocyt eson 01-10-2022 Monocytes/100 WBC (Bld) 10.1 % 0-10 [facility] Work Phone: Blood platelet mean volumeon 01-10-2022 Platelet mean volume (Bld) [Entitic vol] 10.8 fL 6.2-12.0 [facility] Work Phone: Determination of erythrocyte mean corpuscular volume (MCV)on 01-10-2022 MCV (RBC) [Entitic vol] 97.5 fL 80-94 [facility] Work Phone: Hematocrit Auto (Bld) [Volum e fraction]on 01-10-2022 Hematocrit (Bld) [Volume fraction] 47.1 % 40-54 [facility] Work Phone: Laboratory - Hematology and Cell countson 01-10-2022 Erythrocyte distribution width (RBC) [Entitic vol] 44.9 fL 35.1-43.9 [facility] Work Phone: Erythrocyte distribution width (RBC) [Ratio] 12.7 % 11.6-14.6 [facility] Work Phone: Immature granulocytes/100 WBC (Bld) 0.300 % 0.0-0.9 [facility] Work Phone: Comment on above: IG% - Immature Granu locytes (promyelocytes, myelocytes and metamyelocytes) > 1% indicates that a LEFT SHIFT is Present. MCH (RBC) [Entitic mass] 30.6 pg 27.0-32.0 [facility] Work Phone: Nucleated RBC/100 WBC (Bld) [Ratio] 0 % 0-5 [facility] Work Phone: MCHC Auto (RBC) [Mass/Vol]on 01-10-2022 MCHC (RBC) [Mass/Vol] 31.4 g/dL 32-36 [facility] Work [facility]: Platelets bldon 01-10-2022 Platelets (Bld) [#/Vol] 169 10*3/uL 150-450 [facility] Work Phone: Absolute lymphocyte counton 01-04-2022 Lymphocytes Auto (Unsp spec) [#/Vol] 1.84 10*3/uL 0.83-4.51 [facility] Work Phone: Basophil percentageon 2021 Basophils/100 WBC (Bld) 0.3 % 0-1 [facility] Work Phone: Eosinophils/100 WBC (Bld) 0.3 % 0-5 [facility] Work Phone: Neutrophils (Bld) [#/Vol] 4.8 10*3/uL 2.0-7.7 [facility] Work Phone: Neutrophils/100 WBC (Bld) 64.8 % 47-70 [facility] Work Phone: WBC (Bld) [#/Vol] 7.4 10*3/uL 4.4-11.0 [facility] Work Phone: Blood erythrocytes count (nu mber/volume)on 01-04-2022 RBC (Bld) [#/Vol] 4.67 10*6/uL 4.6-6.2 [facility] Work Phone: Blood hemoglobin measurement (mass/volume)on 01-04-2022 Hemoglobin (Bld) [Mass/Vol] 14.2 g/dL 13.0-16.5 [facility] Work Phone: Blood lymphocytes/100 leukoc yteson 01-04-2022 Lymphocytes/100 WBC (Bld) 25.0 % 19-41 [facility] Work Phone: Blood monocytes/100 leukocyt eson 01-04-2022 Monocytes/100 WBC (Bld) 9.1 % 0-10 [facility] Work Phone: Blood platelet mean volumeon 01-04-2022 Platelet mean volume (Bld) [Entitic vol] 11.0 fL 6.2-12.0 [facility] Work Phone: Determination of erythrocyte mean corpuscular volume (MCV)on 01-04-2022 MCV (RBC) [Entitic vol] 91.0 fL 80-94 [facility] Work Phone: Hematocrit Auto (Bld) [Volum e fraction]on 01-04-2022 Hematocrit (Bld) [Volume fraction] 42.5 % 40-54 [facility] Work Phone: Laboratory - Hematology and Cell countson 01-04-2022 Erythrocyte distribution width (RBC) [Entitic vol] 41.4 fL 35.1-43.9 [facility] Work Phone: Erythrocyte distribution width (RBC) [Ratio] 12.7 % 11.6-14.6 [facility] Work Phone: Immature granulocytes/100 WBC (Bld) 0.500 % 0.0-0.9 [facility] Work Phone: Comment on above: IG% - Immature Granu locytes (promyelocytes, myelocytes and metamyelocytes) > 1% indicates that a LEFT SHIFT is Present. MCH (RBC) [Entitic mass] 30.4 pg 27.0-32.0 [facility] Work Phone: Nucleated RBC/100 WBC (Bld) [Ratio] 0 % 0-5 [facility] Work Phone: MCHC Auto (RBC) [Mass/Vol]on 01-04-2022 MCHC (RBC) [Mass/Vol] 33.4 g/dL 32-36 [facility] Work Phone: Platelets bldon 01-04-2022 Platelets (Bld) [#/Vol] 184 10*3/uL 150-450 [facility] Work Phone: Absolute lymphocyte counton 12-27-2021 Lymphocytes Auto (Unsp spec) [#/Vol] 1.79 10*3/uL 0.83-4.51 [facility] Work Phone: Basophil percentageon 2021 Basophils/100 WBC (Bld) 0.4 % 0-1 [facility] Work Phone: Eosinophils/100 WBC (Bld) 0.4 % 0-5 [facility] Work Phone: Neutrophils (Bld) [#/Vol] 4.9 10*3/uL 2.0-7.7 [facility] Work Phone: Neutrophils/100 WBC (Bld) 65.2 % 47-70 [facility] Work Phone: WBC (Bld) [#/Vol] 7.6 10*3/uL 4.4-11.0 [facility] Work Phone: [phone] Blood erythrocytes count (nu mber/volume)on 12-27-2021 RBC (Bld) [#/Vol] 4.66 10*6/uL 4.6-6.2 [facility] Work Phone: [phone] Blood hemoglobin measurement (mass/volume)on 12-27-2021 Hemoglobin (Bld) [Mass/Vol] 14.5 g/dL 13.0-16.5 [facility] Work Phone: Blood lymphocytes/100 leukoc yteson 12-27-2021 Lymphocytes/100 WBC (Bld) 23.6 % 19-41 [facility] Work Phone: Blood monocytes/100 leukocyt eson 12-27-2021 Monocytes/100 WBC (Bld) 10.0 % 0-10 [facility] Work Phone: Blood platelet mean volumeon 12-27-2021 Platelet mean volume (Bld) [Entitic vol] 10.9 fL 6.2-12.0 [facility] Work Phone: Determination of erythrocyte mean corpuscular volume (MCV)on 12-27-2021 MCV (RBC) [Entitic vol] 91.0 fL 80-94 [facility] Work Phone: Hematocrit Auto (Bld) [Volum e fraction]on 12-27-2021 Hematocrit (Bld) [Volume fraction] 42.4 % 40-54 [facility] Work Phone: Laboratory - Hematology and Cell countson 12-27-2021 Erythrocyte distribution width (RBC) [Entitic vol] 41.2 fL 35.1-43.9 [facility] Work Phone: Erythrocyte distribution width (RBC) [Ratio] 12.6 % 11.6-14.6 [facility] Work Phone: Immature granulocytes/100 WBC (Bld) 0.400 % 0.0-0.9 [facility] Work Phone: Comment on above: IG% - Immature Granu locytes (promyelocytes, myelocytes and metamyelocytes) > 1% indicates that a LEFT SHIFT is Present. MCH (RBC) [Entitic mass] 31.1 pg 27.0-32.0 [facility] Work Phone: Nucleated RBC/100 WBC (Bld) [Ratio] 0 % 0-5 [facility] Work Phone: MCHC Auto (RBC) [Mass/Vol]on 12-27-2021 MCHC (RBC) [Mass/Vol] 34.2 g/dL 32-36 [facility] Work Phone: [phone] Platelets bldon 12-27-2021 Platelets (Bld) [#/Vol] 185 10*3/uL 150-450 [facility] Work Phone: [phone] Absolute lymphocyte counton 12-20-2021 Lymphocytes Auto (Unsp spec) [#/Vol] 2.02 10*3/uL 0.83-4.51 [facility] Work Phone: [phone] Basophil percentageon 2021 Basophils/100 WBC (Bld) 0.2 % 0-1 [facility] Work Phone: [phone] Eosinophils/100 WBC (Bld) 0.3 % 0-5 [facility] Work Phone: Neutrophils (Bld) [#/Vol] 3.6 10*3/uL 2.0-7.7 [facility] Work Phone: Neutrophils/100 WBC (Bld) 57.8 % 47-70 [facility] Work Phone: [phone] WBC (Bld) [#/Vol] 6.1 10*3/uL 4.4-11.0 [facility]: [phone] Blood erythrocytes count (nu mber/volume)on 12-20-2021 RBC (Bld) [#/Vol] 4.81 10*6/uL 4.6-6.2 [facility] Work Phone: [phone] Blood hemoglobin measurement (mass/volume)on 12-20-2021 Hemoglobin (Bld) [Mass/Vol] 14.8 g/dL 13.0-16.5 [facility] Work Phone: [phone] Blood lymphocytes/100 leukoc yteson 12-20-2021 Lymphocytes/100 WBC (Bld) 32.9 % 19-41 [facility] Work Phone: Blood monocytes/100 leukocyt eson 12-20-2021 Monocytes/100 WBC (Bld) 8.3 % 0-10 [facility] Work Phone: Blood platelet adequacy dete ction by light microscopyon 12-20-2021 Platelets LM Ql (Bld) ADEQUATE ADEQ [facility] Work Phone: Blood platelet mean volumeon 12-20-2021 Platelet mean volume (Bld) [Entitic vol] 11.1 fL 6.2-12.0 [facility] Work Phone: Determination of erythrocyte mean corpuscular volume (MCV)on 12-20-2021 MCV (RBC) [Entitic vol] 93.1 fL 80-94 [facility] Work Phone: Hematocrit Auto (Bld) [Volum e fraction]on 12-20-2021 Hematocrit (Bld) [Volume fraction] 44.8 % 40-54 [facility] Work Phone: Laboratory - Hematology and Cell countson 12-20-2021 Erythrocyte distribution width (RBC) [Entitic vol] 42.4 fL 35.1-43.9 [facility] Work Phone: Erythrocyte distribution width (RBC) [Ratio] 12.4 % 11.6-14.6 [facility] Work Phone: Immature granulocytes/100 WBC (Bld) 0.500 % 0.0-0.9 [facility] Work Phone: Comment on above: IG% - Immature Granu locytes (promyelocytes, myelocytes and metamyelocytes) > 1% indicates that a LEFT SHIFT is Present. MCH (RBC) [Entitic mass] 30.8 pg 27.0-32.0 [facility] Work Phone: Nucleated RBC/100 WBC (Bld) [Ratio] 0 % 0-5 [facility] Work Phone: MCHC Auto (RBC) [Mass/Vol]on 12-20-2021 MCHC (RBC) [Mass/Vol] 33.0 g/dL 32-36 [facility] Work Phone: Platelets bldon 12-20-2021 Platelets (Bld) [#/Vol] See comment 150-450 [facility] Work Phone: Comment on above: Please [...] Auto (Unsp spec) [#/Vol] 1.88 10*3/uL 0.83-4.51 [facility] Work Phone: Basophil percentageon 2021 Basophils/100 WBC (Bld) 0.6 % 0-1 [facility] Work Phone: Eosinophils/100 WBC (Bld) 0.3 % 0-5 [facility] Work Phone: Neutrophils (Bld) [#/Vol] 4.5 10*3/uL 2.0-7.7 [facility] Work Phone: Neutrophils/100 WBC (Bld) 63.6 % 47-70 [facility] Work Phone: WBC (Bld) [#/Vol] 7.1 10*3/uL 4.4-11.0 [facility] Work Phone: Blood erythrocytes count (nu mber/volume)on 12-13-2021 RBC (Bld) [#/Vol] 4.70 10*6/uL 4.6-6.2 [facility] Work Phone: Blood hemoglobin measurement (mass/volume)on 12-13-2021 Hemoglobin (Bld) [Mass/Vol] 14.4 g/dL 13.0-16.5 [facility] Work Phone: Blood lymphocytes/100 leukoc yteson 12-13-2021 Lymphocytes/100 WBC (Bld) 26.7 % 19-41 [facility] Work Phone: Blood monocytes/100 leukocyt eson 12-13-2021 Monocytes/100 WBC (Bld) 8.5 % 0-10 [facility] Work Phone: Blood platelet mean volumeon 12-13-2021 Platelet mean volume (Bld) [Entitic vol] 10.9 fL 6.2-12.0 [facility] Work Phone: Determination of erythrocyte mean corpuscular volume (MCV)on 12-13-2021 MCV (RBC) [Entitic vol] 90.9 fL 80-94 [facility] Work Phone: Hematocrit Auto (Bld) [Volum e fraction]on 12-13-2021 Hematocrit (Bld) [Volume fraction] 42.7 % 40-54 [facility] Work Phone: Laboratory - Hematology and Cell countson 12-13-2021 Erythrocyte distribution width (RBC) [Entitic vol] 42.1 fL 35.1-43.9 [facility] Work Phone: Erythrocyte distribution width (RBC) [Ratio] 12.6 % 11.6-14.6 [facility] Work Phone: Immature granulocytes/100 WBC (Bld) 0.300 % 0.0-0.9 [facility] Work Phone: Comment on above: IG% - Immature Granu locytes (promyelocytes, myelocytes and metamyelocytes) > 1% indicates that a LEFT SHIFT is Present. MCH (RBC) [Entitic mass] 30.6 pg 27.0-32.0 [facility] Work Phone: Nucleated RBC/100 WBC (Bld) [Ratio] 0 % 0-5 [facility] Work Phone: MCHC Auto (RBC) [Mass/Vol]on 12-13-2021 MCHC (RBC) [Mass/Vol] 33.7 g/dL 32-36 [facility] Work Phone: Platelets bldon 12-13-2021 Platelets (Bld) [#/Vol] 194 10*3/uL 150-450 [facility] Work Phone: [phone] Absolute lymphocyte counton 12-06-2021 Lymphocytes Auto (Unsp spec) [#/Vol] 1.91 10*3/uL 0.83-4.51 [facility] Work Phone: [phone] Basophil percentageon 2021 Basophils/100 WBC (Bld) 0.4 % 0-1 [facility] Work Phone: [phone] Eosinophils/100 WBC (Bld) 0.3 % 0-5 [facility] Work Phone: [phone] Neutrophils (Bld) [#/Vol] 4.4 10*3/uL 2.0-7.7 [facility] Work Phone: [phone] Neutrophils/100 WBC (Bld) 62.2 % 47-70 [facility] Work Phone: [phone] WBC (Bld) [#/Vol] 7.0 10*3/uL 4.4-11.0 [facility] Work Phone: Blood erythrocytes count (nu mber/volume)on 12-06-2021 RBC (Bld) [#/Vol] 4.58 10*6/uL 4.6-6.2 [facility] Work Phone: Blood hemoglobin measurement (mass/volume)on 12-06-2021 Hemoglobin (Bld) [Mass/Vol] 13.8 g/dL 13.0-16.5 [facility] Work Phone: [phone] Blood lymphocytes/100 leukoc yteson 12-06-2021 Lymphocytes/100 WBC (Bld) 27.2 % 19-41 [facility] Work Phone: [phone] Blood monocytes/100 leukocyt eson 12-06-2021 Monocytes/100 WBC (Bld) 9.6 % 0-10 [facility] Work Phone: Blood platelet mean volumeon 12-06-2021 Platelet mean volume (Bld) [Entitic vol] 11.1 fL 6.2-12.0 [facility] Work Phone: Determination of erythrocyte mean corpuscular volume (MCV)on 12-06-2021 MCV (RBC) [Entitic vol] 92.1 fL 80-94 [facility] Work Phone: Hematocrit Auto (Bld) [Volum e fraction]on 12-06-2021 Hematocrit (Bld) [Volume fraction] 42.2 % 40-54 [facility] Work Phone: Laboratory - Hematology and Cell countson 12-06-2021 Erythrocyte distribution width (RBC) [Entitic vol] 42.1 fL 35.1-43.9 [facility] Work Phone: Erythrocyte distribution width (RBC) [Ratio] 12.6 % 11.6-14.6 [facility] Work Phone: Immature granulocytes/100 WBC (Bld) 0.300 % 0.0-0.9 [facility] Work Phone: Comment on above: IG% - Immature Granu locytes (promyelocytes, myelocytes and metamyelocytes) > 1% indicates that a LEFT SHIFT is Present. MCH (RBC) [Entitic mass] 30.1 pg 27.0-32.0 [facility] Work Phone: Nucleated RBC/100 WBC (Bld) [Ratio] 0 % 0-5 [facility] Work Phone: MCHC Auto (RBC) [Mass/Vol]on 12-06-2021 MCHC (RBC) [Mass/Vol] 32.7 g/dL 32-36 [facility] Work Phone: Platelets bldon 12-06-2021 Platelets (Bld) [#/Vol] 180 10*3/uL 150-450 [facility] Work Phone: Absolute lymphocyte counton 11-29-2021 Lymphocytes Auto (Unsp spec) [#/Vol] 2.00 10*3/uL 0.83-4.51 [facility] Work Phone: Basophil percentageon 2021 Basophils/100 WBC (Bld) 0.4 % 0-1 [facility] Work Phone: Eosinophils/100 WBC (Bld) 0.3 % 0-5 [facility] Work Phone: Neutrophils (Bld) [#/Vol] 4.4 10*3/uL 2.0-7.7 [facility] Work Phone: Neutrophils/100 WBC (Bld) 62.8 % 47-70 [facility] Work Phone: [phone] WBC (Bld) [#/Vol] 7.0 10*3/uL 4.4-11.0 [facility] Work Phone: Blood erythrocytes count (nu mber/volume)on 11-29-2021 RBC (Bld) [#/Vol] 4.72 10*6/uL 4.6-6.2 [facility] Work Phone: Blood hemoglobin measurement (mass/volume)on 11-29-2021 Hemoglobin (Bld) [Mass/Vol] 14.6 g/dL 13.0-16.5 [facility] Work Phone: Blood lymphocytes/100 leukoc yteson 11-29-2021 Lymphocytes/100 WBC (Bld) 28.6 % 19-41 [facility] Work Phone: Blood monocytes/100 leukocyt eson 11-29-2021 Monocytes/100 WBC (Bld) 7.6 % 0-10 [facility] Work Phone: Blood platelet mean volumeon 11-29-2021 Platelet mean volume (Bld) [Entitic vol] 11.1 fL 6.2-12.0 [facility] Work Phone: Determination of erythrocyte mean corpuscular volume (MCV)on 11-29-2021 MCV (RBC) [Entitic vol] 91.9 fL 80-94 [facility] Work Phone: Hematocrit Auto (Bld) [Volum e fraction]on 11-29-2021 Hematocrit (Bld) [Volume fraction] 43.4 % 40-54 [facility] Work Phone: Laboratory - Hematology and Cell countson 11-29-2021 Erythrocyte distribution width (RBC) [Entitic vol] 41.8 fL 35.1-43.9 [facility] Work Phone: Erythrocyte distribution width (RBC) [Ratio] 12.4 % 11.6-14.6 [facility] Work Phone: Immature granulocytes/100 WBC (Bld) 0.300 % 0.0-0.9 [facility] Work Phone: Comment on above: IG% - Immature Granu locytes (promyelocytes, myelocytes and metamyelocytes) > 1% indicates that a LEFT SHIFT is Present. MCH (RBC) [Entitic mass] 30.9 pg 27.0-32.0 [facility] Work Phone: Nucleated RBC/100 WBC (Bld) [Ratio] 0 % 0-5 [facility] Work Phone: MCHC Auto (RBC) [Mass/Vol]on 11-29-2021 MCHC (RBC) [Mass/Vol] 33.6 g/dL 32-36 [facility] Work Phone: Platelets bldon 11-29-2021 Platelets (Bld) [#/Vol] 205 10*3/uL 150-450 [facility] Work Phone: Absolute lymphocyte counton 11-22-2021 Lymphocytes Auto (Unsp spec) [#/Vol] 2.25 10*3/uL 0.83-4.51 [facility] Work Phone: Basophil percentageon 2021 Basophils/100 WBC (Bld) 0.4 % 0-1 [facility] Work Phone: Eosinophils/100 WBC (Bld) 0.4 % 0-5 [facility] Work Phone: Neutrophils (Bld) [#/Vol] 5.1 10*3/uL 2.0-7.7 [facility] Work Phone: Neutrophils/100 WBC (Bld) 61.7 % 47-70 [facility] Work Phone: WBC (Bld) [#/Vol] 8.3 10*3/uL 4.4-11.0 [facility] Work Phone: Blood erythrocytes count (nu mber/volume)on 11-22-2021 RBC (Bld) [#/Vol] 4.47 10*6/uL 4.6-6.2 [facility] Work Phone: Blood hemoglobin measurement (mass/volume)on 11-22-2021 Hemoglobin (Bld) [Mass/Vol] 13.5 g/dL 13.0-16.5 [facility] Work Phone: Blood lymphocytes/100 leukoc yteson 11-22-2021 Lymphocytes/100 WBC (Bld) 27.2 % 19-41 [facility] Work Phone: Blood monocytes/100 leukocyt eson 11-22-2021 Monocytes/100 WBC (Bld) 9.9 % 0-10 [facility] Work Phone: Blood platelet mean volumeon 11-22-2021 Platelet mean volume (Bld) [Entitic vol] 11.1 fL 6.2-12.0 [facility] Work Phone: Determination of erythrocyte mean corpuscular volume (MCV)on 11-22-2021 MCV (RBC) [Entitic vol] 92.2 fL 80-94 [facility] Work Phone: Hematocrit Auto (Bld) [Volum e fraction]on 11-22-2021 Hematocrit (Bld) [Volume fraction] 41.2 % 40-54 [facility] Work Phone: Laboratory - Hematology and Cell countson 11-22-2021 Erythrocyte distribution width (RBC) [Entitic vol] 42.3 fL 35.1-43.9 [facility] Work Phone: [phone] Erythrocyte distribution width (RBC) [Ratio] 12.6 % 11.6-14.6 [facility] Work Phone: [phone] Immature granulocytes/100 WBC (Bld) 0.400 % 0.0-0.9 [facility] Work Phone: Comment on above: IG% - Immature Granu locytes (promyelocytes, myelocytes and metamyelocytes) > 1% indicates that a LEFT SHIFT is Present. MCH (RBC) [Entitic mass] 30.2 pg 27.0-32.0 [facility] Work Phone: Nucleated RBC/100 WBC (Bld) [Ratio] 0 % 0-5 [facility] Work Phone: [phone] MCHC Auto (RBC) [Mass/Vol]on 11-22-2021 MCHC (RBC) [Mass/Vol] 32.8 g/dL 32-36 [facility] Work Phone: Platelets bldon 11-22-2021 Platelets (Bld) [#/Vol] 190 10*3/uL 150-450 [facility] Work Phone: Absolute lymphocyte counton 11-15-2021 Lymphocytes Auto (Unsp spec) [#/Vol] 2.09 10*3/uL 0.83-4.51 [facility] Work Phone: Basophil percentageon 2021 Basophils/100 WBC (Bld) 0.6 % 0-1 [facility] Work Phone: Eosinophils/100 WBC (Bld) 0.4 % 0-5 [facility] Work Phone: Neutrophils (Bld) [#/Vol] 4.2 10*3/uL 2.0-7.7 [facility] Work Phone: Neutrophils/100 WBC (Bld) 59.1 % 47-70 [facility] Work Phone: WBC (Bld) [#/Vol] 7.1 10*3/uL 4.4-11.0 [facility] Work Phone: Blood erythrocytes count (nu mber/volume)on 11-15-2021 RBC (Bld) [#/Vol] 4.72 10*6/uL 4.6-6.2 [facility] Work Phone: Blood hemoglobin measurement (mass/volume)on 11-15-2021 Hemoglobin (Bld) [Mass/Vol] 14.6 g/dL 13.0-16.5 [facility] Work Phone: Blood lymphocytes/100 leukoc yteson 11-15-2021 Lymphocytes/100 WBC (Bld) 29.4 % 19-41 [facility] Work Phone: Blood monocytes/100 leukocyt eson 11-15-2021 Monocytes/100 WBC (Bld) 10.1 % 0-10 [facility] Work Phone: Blood platelet mean volumeon 11-15-2021 Platelet mean volume (Bld) [Entitic vol] 10.7 fL 6.2-12.0 [facility] Work Phone: Determination of erythrocyte mean corpuscular volume (MCV)on 11-15-2021 MCV (RBC) [Entitic vol] 91.9 fL 80-94 [facility] Work Phone: Hematocrit Auto (Bld) [Volum e fraction]on 11-15-2021 Hematocrit (Bld) [Volume fraction] 43.4 % 40-54 [facility] Work Phone: Laboratory - Hematology and Cell countson 11-15-2021 Erythrocyte distribution width (RBC) [Entitic vol] 41.9 fL 35.1-43.9 [facility] Work Phone: Erythrocyte distribution width (RBC) [Ratio] 12.4 % 11.6-14.6 [facility] Work Phone: Immature granulocytes/100 WBC (Bld) 0.400 % 0.0-0.9 [facility] Work Phone: Comment on above: IG% - Immature Granu locytes (promyelocytes, myelocytes and metamyelocytes) > 1% indicates that a LEFT SHIFT is Present. MCH (RBC) [Entitic mass] 30.9 pg 27.0-32.0 [facility] Work Phone: Nucleated RBC/100 WBC (Bld) [Ratio] 0 % 0-5 [facility] Work Phone: [phone] MCHC Auto (RBC) [Mass/Vol]on 11-15-2021 MCHC (RBC) [Mass/Vol] 33.6 g/dL 32-36 [facility] Work Phone: [phone] Platelets bldon 11-15-2021 Platelets (Bld) [#/Vol] 191 10*3/uL 150-450 [facility] Work Phone: Absolute lymphocyte counton 11-08-2021 Lymphocytes Auto (Unsp spec) [#/Vol] 1.97 10*3/uL 0.83-4.51 [facility] Work Phone: Basophil percentageon 2021 Basophils/100 WBC (Bld) 0.3 % 0-1 [facility] Work Phone: [phone] Eosinophils/100 WBC (Bld) 0.3 % 0-5 [facility] Work Phone: Neutrophils (Bld) [#/Vol] 5.1 10*3/uL 2.0-7.7 [facility] Work Phone: Neutrophils/100 WBC (Bld) 64.6 % 47-70 [facility] Work Phone: WBC (Bld) [#/Vol] 7.8 10*3/uL 4.4-11.0 [facility] Work Phone: [phone] Blood erythrocytes count (nu mber/volume)on 11-08-2021 RBC (Bld) [#/Vol] 4.53 10*6/uL 4.6-6.2 [facility] Work Phone: Blood hemoglobin measurement (mass/volume)on 11-08-2021 Hemoglobin (Bld) [Mass/Vol] 14.2 g/dL 13.0-16.5 [facility] Work Phone: Blood lymphocytes/100 leukoc yteson 11-08-2021 Lymphocytes/100 WBC (Bld) 25.2 % 19-41 [facility] Work Phone: Blood monocytes/100 leukocyt eson 11-08-2021 Monocytes/100 WBC (Bld) 9.3 % 0-10 [facility] Work Phone: Blood platelet mean volumeon 11-08-2021 Platelet mean volume (Bld) [Entitic vol] 10.9 fL 6.2-12.0 [facility] Work Phone: Determination of erythrocyte mean corpuscular volume (MCV)on 11-08-2021 MCV (RBC) [Entitic vol] 92.7 fL 80-94 [facility] Work Phone: Hematocrit Auto (Bld) [Volum e fraction]on 11-08-2021 Hematocrit (Bld) [Volume fraction] 42.0 % 40-54 [facility] Work Phone: Laboratory - Hematology and Cell countson 11-08-2021 Erythrocyte distribution width (RBC) [Entitic vol] 42.3 fL 35.1-43.9 [facility] Work Phone: Erythrocyte distribution width (RBC) [Ratio] 12.5 % 11.6-14.6 [facility] Work Phone: Immature granulocytes/100 WBC (Bld) 0.300 % 0.0-0.9 [facility] Work Phone: Comment on above: IG% - Immature Granu locytes (promyelocytes, myelocytes and metamyelocytes) > 1% indicates that a LEFT SHIFT is Present. MCH (RBC) [Entitic mass] 31.3 pg 27.0-32.0 [facility] Work Phone: Nucleated RBC/100 WBC (Bld) [Ratio] 0 % 0-5 [facility] Work Phone: MCHC Auto (RBC) [Mass/Vol]on 11-08-2021 MCHC (RBC) [Mass/Vol] 33.8 g/dL 32-36 [facility] Work Phone: Platelets bldon 11-08-2021 Platelets (Bld) [#/Vol] 207 10*3/uL 150-450 [facility] Work Phone: Absolute lymphocyte counton 10-25-2021 Lymphocytes Auto (Unsp spec) [#/Vol] 2.05 10*3/uL 0.83-4.51 [facility] Work Phone: Basophil percentageon 2021 Basophils/100 WBC (Bld) 0.4 % 0-1 [facility] Work Phone: Eosinophils/100 WBC (Bld) 0.3 % 0-5 [facility] Work Phone: Neutrophils (Bld) [#/Vol] 4.2 10*3/uL 2.0-7.7 [facility] Work Phone: Neutrophils/100 WBC (Bld) 61.3 % 47-70 [facility] Work Phone: WBC (Bld) [#/Vol] 6.8 10*3/uL 4.4-11.0 [facility] Work Phone: Blood erythrocytes count (nu mber/volume)on 10-25-2021 RBC (Bld) [#/Vol] 4.56 10*6/uL 4.6-6.2 [facility] Work Phone: Blood hemoglobin measurement (mass/volume)on 10-25-2021 Hemoglobin (Bld) [Mass/Vol] 13.9 g/dL 13.0-16.5 [facility] Work Phone: Blood lymphocytes/100 leukoc yteson 10-25-2021 Lymphocytes/100 WBC (Bld) 30.1 % 19-41 [facility] Work Phone: Blood monocytes/100 leukocyt eson 10-25-2021 Monocytes/100 WBC (Bld) 7.3 % 0-10 [facility] Work Phone: Blood platelet mean volumeon 10-25-2021 Platelet mean volume (Bld) [Entitic vol] 10.6 fL 6.2-12.0 [facility] Work Phone: Determination of erythrocyte mean corpuscular volume (MCV)on 10-25-2021 MCV (RBC) [Entitic vol] 91.0 fL 80-94 [facility] Work Phone: Hematocrit Auto (Bld) [Volum e fraction]on 10-25-2021 Hematocrit (Bld) [Volume fraction] 41.5 % 40-54 [facility] Work Phone: Laboratory - Hematology and Cell countson 10-25-2021 Erythrocyte distribution width (RBC) [Entitic vol] 41.7 fL 35.1-43.9 [facility] Work Phone: Erythrocyte distribution width (RBC) [Ratio] 12.6 % 11.6-14.6 [facility] Work Phone: Immature granulocytes/100 WBC (Bld) 0.600 % 0.0-0.9 [facility] Work Phone: Comment on above: IG% - Immature Granu locytes (promyelocytes, myelocytes and metamyelocytes) > 1% indicates that a LEFT SHIFT is Present. MCH (RBC) [Entitic mass] 30.5 pg 27.0-32.0 [facility] Work Phone: Nucleated RBC/100 WBC (Bld) [Ratio] 0 % 0-5 [facility] Work Phone: MCHC Auto (RBC) [Mass/Vol]on 10-25-2021 MCHC (RBC) [Mass/Vol] 33.5 g/dL 32-36 [facility] Work Phone: Platelets bldon 10-25-2021 Platelets (Bld) [#/Vol] 191 10*3/uL 150-450 [facility] Work Phone: Absolute lymphocyte counton 10-18-2021 Lymphocytes Auto (Unsp spec) [#/Vol] 1.66 10*3/uL 0.83-4.51 [facility] Work Phone: Basophil percentageon 2021 Basophils/100 WBC (Bld) 0.5 % 0-1 [facility] Work Phone: Eosinophils/100 WBC (Bld) 0.2 % 0-5 [facility] Work Phone: [phone] Neutrophils (Bld) [#/Vol] 4.3 10*3/uL 2.0-7.7 [facility] Work Phone: Neutrophils/100 WBC (Bld) 65.0 % 47-70 [facility] Work Phone: WBC (Bld) [#/Vol] 6.6 10*3/uL 4.4-11.0 [facility] Work Phone: [phone] Blood erythrocytes count (nu mber/volume)on 10-18-2021 RBC (Bld) [#/Vol] 4.57 10*6/uL 4.6-6.2 [facility] Work Phone: [phone] Blood hemoglobin measurement (mass/volume)on 10-18-2021 Hemoglobin (Bld) [Mass/Vol] 14.1 g/dL 13.0-16.5 [facility] Work Phone: Blood lymphocytes/100 leukoc yteson 10-18-2021 Lymphocytes/100 WBC (Bld) 25.2 % 19-41 [facility] Work Phone: Blood monocytes/100 leukocyt eson 10-18-2021 Monocytes/100 WBC (Bld) 8.8 % 0-10 [facility] Work Phone: Blood platelet mean volumeon 10-18-2021 Platelet mean volume (Bld) [Entitic vol] 10.6 fL 6.2-12.0 [facility] Work Phone: Determination of erythrocyte mean corpuscular volume (MCV)on 10-18-2021 MCV (RBC) [Entitic vol] 91.7 fL 80-94 [facility] Work Phone: Hematocrit Auto (Bld) [Volum e fraction]on 10-18-2021 Hematocrit (Bld) [Volume fraction] 41.9 % 40-54 [facility] Work Phone: Laboratory - Hematology and Cell countson 10-18-2021 Erythrocyte distribution width (RBC) [Entitic vol] 41.6 fL 35.1-43.9 [facility] Work Phone: Erythrocyte distribution width (RBC) [Ratio] 12.5 % 11.6-14.6 [facility] Work Phone: Immature granulocytes/100 WBC (Bld) 0.300 % 0.0-0.9 [facility] Work Phone: Comment on above: IG% - Immature Granu locytes (promyelocytes, myelocytes and metamyelocytes) > 1% indicates that a LEFT SHIFT is Present. MCH (RBC) [Entitic mass] 30.9 pg 27.0-32.0 [facility] Work Phone: Nucleated RBC/100 WBC (Bld) [Ratio] 0 % 0-5 [facility] Work Phone: MCHC Auto (RBC) [Mass/Vol]on 10-18-2021 MCHC (RBC) [Mass/Vol] 33.7 g/dL 32-36 [facility] Work Phone: Platelets bldon 10-18-2021 Platelets (Bld) [#/Vol] 185 10*3/uL 150-450 [facility] Work Phone: Absolute lymphocyte counton 10-11-2021 Lymphocytes Auto (Unsp spec) [#/Vol] 1.66 10*3/uL 0.83-4.51 [facility] Work Phone: Basophil percentageon 2021 Basophils/100 WBC (Bld) 0.5 % 0-1 [facility] Work Phone: Eosinophils/100 WBC (Bld) 0.1 % 0-5 [facility] Work Phone: Neutrophils (Bld) [#/Vol] 5.9 10*3/uL 2.0-7.7 [facility] Work Phone: [phone] Neutrophils/100 WBC (Bld) 70.8 % 47-70 [facility] Work Phone: WBC (Bld) [#/Vol] 8.3 10*3/uL 4.4-11.0 [facility]: Blood erythrocytes count (nu mber/volume)on 10-11-2021 RBC (Bld) [#/Vol] 4.66 10*6/uL 4.6-6.2 [facility]: Blood hemoglobin measurement (mass/volume)on 10-11-2021 Hemoglobin (Bld) [Mass/Vol] 14.1 g/dL 13.0-16.5 [facility] Work Phone: Blood lymphocytes/100 leukoc yteson 10-11-2021 Lymphocytes/100 WBC (Bld) 20.0 % 19-41 [facility] Work Phone: Blood monocytes/100 leukocyt eson 10-11-2021 Monocytes/100 WBC (Bld) 8.2 % 0-10 [facility] Work Phone: Blood platelet mean volumeon 10-11-2021 Platelet mean volume (Bld) [Entitic vol] 10.7 fL 6.2-12.0 [facility] Work Phone: Determination of erythrocyte mean corpuscular volume (MCV)on 10-11-2021 MCV (RBC) [Entitic vol] 91.8 fL 80-94 [facility] Work Phone: Hematocrit Auto (Bld) [Volum e fraction]on 10-11-2021 Hematocrit (Bld) [Volume fraction] 42.8 % 40-54 [facility] Work Phone: Laboratory - Hematology and Cell countson 10-11-2021 Erythrocyte distribution width (RBC) [Entitic vol] 42.8 fL 35.1-43.9 [facility] Work Phone: Erythrocyte distribution width (RBC) [Ratio] 12.8 % 11.6-14.6 [facility] Work Phone: Immature granulocytes/100 WBC (Bld) 0.400 % 0.0-0.9 [facility] Work Phone: Comment on above: IG% - Immature Granu locytes (promyelocytes, myelocytes and metamyelocytes) > 1% indicates that a LEFT SHIFT is Present. MCH (RBC) [Entitic mass] 30.3 pg 27.0-32.0 [facility] Work Phone: Nucleated RBC/100 WBC (Bld) [Ratio] 0 % 0-5 [facility] Work Phone: MCHC Auto (RBC) [Mass/Vol]on 10-11-2021 MCHC (RBC) [Mass/Vol] 32.9 g/dL 32-36 [facility] Work [facility]: Platelets bldon 10-11-2021 Platelets (Bld) [#/Vol] 193 10*3/uL 150-450 [facility] Work Phone: Absolute lymphocyte counton 10-04-2021 Lymphocytes Auto (Unsp spec) [#/Vol] 1.97 10*3/uL 0.83-4.51 [facility] Work Phone: Basophil percentageon 2021 Basophils/100 WBC (Bld) 0.5 % 0-1 [facility] Work Phone: Eosinophils/100 WBC (Bld) 0.1 % 0-5 [facility] Work Phone: Neutrophils (Bld) [#/Vol] 5.0 10*3/uL 2.0-7.7 [facility] Work Phone: Neutrophils/100 WBC (Bld) 64.4 % 47-70 [facility] Work Phone: WBC (Bld) [#/Vol] 7.7 10*3/uL 4.4-11.0 [facility]: Blood erythrocytes count (nu mber/volume)on 10-04-2021 RBC (Bld) [#/Vol] 4.52 10*6/uL 4.6-6.2 [facility] Work [facility]: Blood hemoglobin measurement (mass/volume)on 10-04-2021 Hemoglobin (Bld) [Mass/Vol] 13.9 g/dL 13.0-16.5 [facility] Work Phone: Blood lymphocytes/100 leukoc yteson 10-04-2021 Lymphocytes/100 WBC (Bld) 25.6 % 19-41 [facility] Work Phone: Blood monocytes/100 leukocyt eson 10-04-2021 Monocytes/100 WBC (Bld) 9.0 % 0-10 [facility] Work Phone: Blood platelet mean volumeon 10-04-2021 Platelet mean volume (Bld) [Entitic vol] 11.0 fL 6.2-12.0 [facility] Work Phone: Determination of erythrocyte mean corpuscular volume (MCV)on 10-04-2021 MCV (RBC) [Entitic vol] 91.4 fL 80-94 [facility] Work Phone: Hematocrit Auto (Bld) [Volum e fraction]on 10-04-2021 Hematocrit (Bld) [Volume fraction] 41.3 % 40-54 [facility] Work Phone: Laboratory - Hematology and Cell countson 10-04-2021 Erythrocyte distribution width (RBC) [Entitic vol] 42.2 fL 35.1-43.9 [facility] Work Phone: [phone] Erythrocyte distribution width (RBC) [Ratio] 12.8 % 11.6-14.6 [facility] Work Phone: [phone] Immature granulocytes/100 WBC (Bld) 0.400 % 0.0-0.9 [facility] Work Phone: Comment on above: IG% - Immature Granu locytes (promyelocytes, myelocytes and metamyelocytes) > 1% indicates that a LEFT SHIFT is Present. MCH (RBC) [Entitic mass] 30.8 pg 27.0-32.0 [facility] Work Phone: Nucleated RBC/100 WBC (Bld) [Ratio] 0 % 0-5 [facility] Work Phone: MCHC Auto (RBC) [Mass/Vol]on 10-04-2021 MCHC (RBC) [Mass/Vol] 33.7 g/dL 32-36 [facility] Work [facility]: Platelets bldon 10-04-2021 Platelets (Bld) [#/Vol] 179 10*3/uL 150-450 [facility] Work Phone: Absolute lymphocyte counton 09-28-2021 Lymphocytes Auto (Unsp spec) [#/Vol] 2.10 10*3/uL 0.83-4.51 [facility] Work Phone: Basophil percentageon 2021 Basophils/100 WBC (Bld) 0.4 % 0-1 [facility] Work Phone: Eosinophils/100 WBC (Bld) 0.3 % 0-5 [facility] Work Phone: Neutrophils (Bld) [#/Vol] 4.3 10*3/uL 2.0-7.7 [facility] Work Phone: Neutrophils/100 WBC (Bld) 59.9 % 47-70 [facility] Work Phone: WBC (Bld) [#/Vol] 7.2 10*3/uL 4.4-11.0 [facility] Work [facility]: Blood erythrocytes count (nu mber/volume)on 09-28-2021 RBC (Bld) [#/Vol] 4.34 10*6/uL 4.6-6.2 [facility] Work Phone: Blood hemoglobin measurement (mass/volume)on 09-28-2021 Hemoglobin (Bld) [Mass/Vol] 13.3 g/dL 13.0-16.5 [facility] Work Phone: Blood lymphocytes/100 leukoc yteson 09-28-2021 Lymphocytes/100 WBC (Bld) 29.3 % 19-41 [facility] Work Phone: Blood monocytes/100 leukocyt eson 09-28-2021 Monocytes/100 WBC (Bld) 9.8 % 0-10 [facility] Work Phone: Blood platelet mean volumeon 09-28-2021 Platelet mean volume (Bld) [Entitic vol] 10.7 fL 6.2-12.0 [facility] Work Phone: Determination of erythrocyte mean corpuscular volume (MCV)on 09-28-2021 MCV (RBC) [Entitic vol] 91.2 fL 80-94 [facility] Work Phone: Hematocrit Auto (Bld) [Volum e fraction]on 09-28-2021 Hematocrit (Bld) [Volume fraction] 39.6 % 40-54 [facility] Work Phone: Laboratory - Hematology and Cell countson 09-28-2021 Erythrocyte distribution width (RBC) [Entitic vol] 41.8 fL 35.1-43.9 [facility] Work Phone: Erythrocyte distribution width (RBC) [Ratio] 12.6 % 11.6-14.6 [facility] Work Phone: Immature granulocytes/100 WBC (Bld) 0.300 % 0.0-0.9 [facility] Work Phone: Comment on above: IG% - Immature Granu locytes (promyelocytes, myelocytes and metamyelocytes) > 1% indicates that a LEFT SHIFT is Present. MCH (RBC) [Entitic mass] 30.6 pg 27.0-32.0 [facility] Work Phone: Nucleated RBC/100 WBC (Bld) [Ratio] 0 % 0-5 [facility] Work Phone: [phone] MCHC Auto (RBC) [Mass/Vol]on 09-28-2021 MCHC (RBC) [Mass/Vol] 33.6 g/dL 32-36 [facility] Work Phone: Platelets bldon 09-28-2021 Platelets (Bld) [#/Vol] 181 10*3/uL 150-450 [facility] Work Phone: Absolute lymphocyte counton 09-20-2021 Lymphocytes Auto (Unsp spec) [#/Vol] 1.79 10*3/uL 0.83-4.51 [facility] Work Phone: Basophil percentageon 2021 Basophils/100 WBC (Bld) 0.4 % 0-1 [facility] Work Phone: Eosinophils/100 WBC (Bld) 0.3 % 0-5 [facility] Work Phone: Neutrophils (Bld) [#/Vol] 4.1 10*3/uL 2.0-7.7 [facility] Work Phone: Neutrophils/100 WBC (Bld) 61.3 % 47-70 [facility] Work Phone: WBC (Bld) [#/Vol] 6.7 10*3/uL 4.4-11.0 [facility] Work Phone: Blood erythrocytes count (nu mber/volume)on 09-20-2021 RBC (Bld) [#/Vol] 4.32 10*6/uL 4.6-6.2 [facility] Work Phone: Blood hemoglobin measurement (mass/volume)on 09-20-2021 Hemoglobin (Bld) [Mass/Vol] 13.6 g/dL 13.0-16.5 [facility] Work Phone: Blood lymphocytes/100 leukoc yteson 09-20-2021 Lymphocytes/100 WBC (Bld) 26.8 % 19-41 [facility] Work Phone: Blood monocytes/100 leukocyt eson 09-20-2021 Monocytes/100 WBC (Bld) 10.8 % 0-10 [facility] Work Phone: Blood platelet mean volumeon 09-20-2021 Platelet mean volume (Bld) [Entitic vol] 10.7 fL 6.2-12.0 [facility] Work Phone: Determination of erythrocyte mean corpuscular volume (MCV)on 09-20-2021 MCV (RBC) [Entitic vol] 93.1 fL 80-94 [facility] Work Phone: Hematocrit Auto (Bld) [Volum e fraction]on 09-20-2021 Hematocrit (Bld) [Volume fraction] 40.2 % 40-54 [facility] Work Phone: Laboratory - Hematology and Cell countson 09-20-2021 Erythrocyte distribution width (RBC) [Entitic vol] 43.0 fL 35.1-43.9 [facility] Work Phone: Erythrocyte distribution width (RBC) [Ratio] 12.6 % 11.6-14.6 [facility] Work Phone: Immature granulocytes/100 WBC (Bld) 0.400 % 0.0-0.9 [facility] Work Phone: Comment on above: IG% - Immature Granu locytes (promyelocytes, myelocytes and metamyelocytes) > 1% indicates that a LEFT SHIFT is Present. MCH (RBC) [Entitic mass] 31.5 pg 27.0-32.0 [facility] Work Phone: Nucleated RBC/100 WBC (Bld) [Ratio] 0 % 0-5 [facility] Work Phone: [phone] MCHC Auto (RBC) [Mass/Vol]on 09-20-2021 MCHC (RBC) [Mass/Vol] 33.8 g/dL 32-36 [facility] Work Phone: Platelets bldon 09-20-2021 Platelets (Bld) [#/Vol] 170 10*3/uL 150-450 [facility] Work Phone: Absolute lymphocyte counton 09-13-2021 Lymphocytes Auto (Unsp spec) [#/Vol] 1.85 10*3/uL 0.83-4.51 [facility] Work Phone: Basophil percentageon 2021 Basophils/100 WBC (Bld) 0.6 % 0-1 [facility] Work Phone: Eosinophils/100 WBC (Bld) 0.3 % 0-5 [facility] Work Phone: Neutrophils (Bld) [#/Vol] 4.3 10*3/uL 2.0-7.7 [facility] Work Phone: Neutrophils/100 WBC (Bld) 63.1 % 47-70 [facility] Work Phone: WBC (Bld) [#/Vol] 6.7 10*3/uL 4.4-11.0 [facility] Work Phone: [phone] Blood erythrocytes count (nu mber/volume)on 09-13-2021 RBC (Bld) [#/Vol] 4.63 10*6/uL 4.6-6.2 [facility] Work Phone: [phone] Blood hemoglobin measurement (mass/volume)on 09-13-2021 Hemoglobin (Bld) [Mass/Vol] 14.2 g/dL 13.0-16.5 [facility] Work Phone: Blood lymphocytes/100 leukoc yteson 09-13-2021 Lymphocytes/100 WBC (Bld) 27.5 % 19-41 [facility] Work Phone: Blood monocytes/100 leukocyt eson 09-13-2021 Monocytes/100 WBC (Bld) 8.2 % 0-10 [facility] Work Phone: Blood platelet mean volumeon 09-13-2021 Platelet mean volume (Bld) [Entitic vol] 11.0 fL 6.2-12.0 [facility] Work Phone: Determination of erythrocyte mean corpuscular volume (MCV)on 09-13-2021 MCV (RBC) [Entitic vol] 93.5 fL 80-94 [facility] Work Phone: Hematocrit Auto (Bld) [Volum e fraction]on 09-13-2021 Hematocrit (Bld) [Volume fraction] 43.3 % 40-54 [facility] Work Phone: Laboratory - Hematology and Cell countson 09-13-2021 Erythrocyte distribution width (RBC) [Entitic vol] 43.0 fL 35.1-43.9 [facility] Work Phone: Erythrocyte distribution width (RBC) [Ratio] 12.6 % 11.6-14.6 [facility] Work Phone: Immature granulocytes/100 WBC (Bld) 0.300 % 0.0-0.9 [facility] Work Phone: Comment on above: IG% - Immature Granu locytes (promyelocytes, myelocytes and metamyelocytes) > 1% indicates that a LEFT SHIFT is Present. MCH (RBC) [Entitic mass] 30.7 pg 27.0-32.0 [facility] Work Phone: Nucleated RBC/100 WBC (Bld) [Ratio] 0 % 0-5 [facility] Work Phone: MCHC Auto (RBC) [Mass/Vol]on 09-13-2021 MCHC (RBC) [Mass/Vol] 32.8 g/dL 32-36 [facility] Work Phone: [phone] Platelets bldon 09-13-2021 Platelets (Bld) [#/Vol] 188 10*3/uL 150-450 [facility] Work Phone: [phone] Absolute lymphocyte counton 09-06-2021 Lymphocytes Auto (Unsp spec) [#/Vol] 1.86 10*3/uL 0.83-4.51 [facility] Work Phone: [phone] Basophil percentageon 2021 Basophils/100 WBC (Bld) 0.7 % 0-1 [facility] Work Phone: [phone] Eosinophils/100 WBC (Bld) 0.3 % 0-5 [facility] Work Phone: [phone] Neutrophils (Bld) [#/Vol] 4.4 10*3/uL 2.0-7.7 [facility] Work Phone: [phone] Neutrophils/100 WBC (Bld) 62.6 % 47-70 [facility] Work Phone: [phone] WBC (Bld) [#/Vol] 7.0 10*3/uL 4.4-11.0 [facility] Work Phone: Blood erythrocytes count (nu mber/volume)on 09-06-2021 RBC (Bld) [#/Vol] 4.51 10*6/uL 4.6-6.2 [facility] Work Phone: Blood hemoglobin measurement (mass/volume)on 09-06-2021 Hemoglobin (Bld) [Mass/Vol] 13.8 g/dL 13.0-16.5 [facility] Work Phone: [phone] Blood lymphocytes/100 leukoc yteson 09-06-2021 Lymphocytes/100 WBC (Bld) 26.5 % 19-41 [facility] Work Phone: Blood monocytes/100 leukocyt eson 09-06-2021 Monocytes/100 WBC (Bld) 9.5 % 0-10 [facility] Work Phone: Blood platelet mean volumeon 09-06-2021 Platelet mean volume (Bld) [Entitic vol] 10.7 fL 6.2-12.0 [facility] Work Phone: Determination of erythrocyte mean corpuscular volume (MCV)on 09-06-2021 MCV (RBC) [Entitic vol] 92.9 fL 80-94 [facility] Work Phone: Hematocrit Auto (Bld) [Volum e fraction]on 09-06-2021 Hematocrit (Bld) [Volume fraction] 41.9 % 40-54 [facility] Work Phone: Laboratory - Hematology and Cell countson 09-06-2021 Erythrocyte distribution width (RBC) [Entitic vol] 43.0 fL 35.1-43.9 [facility] Work Phone: Erythrocyte distribution width (RBC) [Ratio] 12.7 % 11.6-14.6 [facility] Work Phone: Immature granulocytes/100 WBC (Bld) 0.400 % 0.0-0.9 [facility] Work Phone: Comment on above: IG% - Immature Granu locytes (promyelocytes, myelocytes and metamyelocytes) > 1% indicates that a LEFT SHIFT is Present. MCH (RBC) [Entitic mass] 30.6 pg 27.0-32.0 [facility] Work Phone: Nucleated RBC/100 WBC (Bld) [Ratio] 0 % 0-5 [facility] Work Phone: MCHC Auto (RBC) [Mass/Vol]on 09-06-2021 MCHC (RBC) [Mass/Vol] 32.9 g/dL 32-36 [facility] Work Phone: Platelets bldon 09-06-2021 Platelets (Bld) [#/Vol] 189 10*3/uL 150-450 [facility] Work Phone: [phone] Absolute lymphocyte counton 08-30-2021 Lymphocytes Auto (Unsp spec) [#/Vol] 1.44 10*3/uL 0.83-4.51 [facility] Work Phone: Basophil percentageon 2021 Basophils/100 WBC (Bld) 0.3 % 0-1 [facility] Work Phone: Eosinophils/100 WBC (Bld) 0.2 % 0-5 [facility] Work Phone: [phone] Neutrophils (Bld) [#/Vol] 9.6 10*3/uL 2.0-7.7 [facility] Work Phone: Neutrophils/100 WBC (Bld) 80.4 % 47-70 [facility] Work Phone: WBC (Bld) [#/Vol] 12.0 10*3/uL 4.4-11.0 [facility] Work Phone: Blood erythrocytes count (nu mber/volume)on 08-30-2021 RBC (Bld) [#/Vol] 4.52 10*6/uL 4.6-6.2 [facility] Work Phone: Blood hemoglobin measurement (mass/volume)on 08-30-2021 Hemoglobin (Bld) [Mass/Vol] 13.9 g/dL 13.0-16.5 [facility] Work Phone: Blood lymphocytes/100 leukoc yteson 08-30-2021 Lymphocytes/100 WBC (Bld) 12.0 % 19-41 [facility] Work Phone: [phone] Blood monocytes/100 leukocyt eson 08-30-2021 Monocytes/100 WBC (Bld) 6.7 % 0-10 [facility] Work Phone: Blood platelet mean volumeon 08-30-2021 Platelet mean volume (Bld) [Entitic vol] 11.3 fL 6.2-12.0 [facility] Work Phone: Determination of erythrocyte mean corpuscular volume (MCV)on 08-30-2021 MCV (RBC) [Entitic vol] 92.7 fL 80-94 [facility] Work Phone: Hematocrit Auto (Bld) [Volum e fraction]on 08-30-2021 Hematocrit (Bld) [Volume fraction] 41.9 % 40-54 [facility] Work Phone: Laboratory - Hematology and Cell countson 08-30-2021 Erythrocyte distribution width (RBC) [Entitic vol] 42.6 fL 35.1-43.9 [facility] Work Phone: Erythrocyte distribution width (RBC) [Ratio] 12.6 % 11.6-14.6 [facility] Work Phone: Immature granulocytes/100 WBC (Bld) 0.400 % 0.0-0.9 [facility] Work Phone: Comment on above: IG% - Immature Granu locytes (promyelocytes, myelocytes and metamyelocytes) > 1% indicates that a LEFT SHIFT is Present. MCH (RBC) [Entitic mass] 30.8 pg 27.0-32.0 [facility] Work Phone: Nucleated RBC/100 WBC (Bld) [Ratio] 0 % 0-5 [facility] Work Phone: MCHC Auto (RBC) [Mass/Vol]on 08-30-2021 MCHC (RBC) [Mass/Vol] 33.2 g/dL 32-36 [facility] Work Phone: Platelets bldon 08-30-2021 Platelets (Bld) [#/Vol] 200 10*3/uL 150-450 [facility] Work Phone: Absolute lymphocyte counton 08-23-2021 Lymphocytes Auto (Unsp spec) [#/Vol] 1.91 10*3/uL 0.83-4.51 [facility] Work Phone: Basophil percentageon 2021 Basophils/100 WBC (Bld) 0.4 % 0-1 [facility] Work Phone: Eosinophils/100 WBC (Bld) 0.3 % 0-5 [facility] Work Phone: Neutrophils (Bld) [#/Vol] 4.2 10*3/uL 2.0-7.7 [facility] Work Phone: Neutrophils/100 WBC (Bld) 62.3 % 47-70 [facility] Work Phone: WBC (Bld) [#/Vol] 6.8 10*3/uL 4.4-11.0 [facility] Work Phone: Blood erythrocytes count (nu mber/volume)on 08-23-2021 RBC (Bld) [#/Vol] 4.46 10*6/uL 4.6-6.2 [facility] Work Phone: Blood hemoglobin measurement (mass/volume)on 08-23-2021 Hemoglobin (Bld) [Mass/Vol] 13.7 g/dL 13.0-16.5 [facility] Work Phone: Blood lymphocytes/100 leukoc yteson 08-23-2021 Lymphocytes/100 WBC (Bld) 28.3 % 19-41 [facility] Work Phone: Blood monocytes/100 leukocyt eson 08-23-2021 Monocytes/100 WBC (Bld) 8.1 % 0-10 [facility] Work Phone: Blood platelet mean volumeon 08-23-2021 Platelet mean volume (Bld) [Entitic vol] 10.6 fL 6.2-12.0 [facility] Work Phone: Determination of erythrocyte mean corpuscular volume (MCV)on 08-23-2021 MCV (RBC) [Entitic vol] 93.0 fL 80-94 [facility] Work Phone: Hematocrit Auto (Bld) [Volum e fraction]on 08-23-2021 Hematocrit (Bld) [Volume fraction] 41.5 % 40-54 [facility] Work Phone: Laboratory - Hematology and Cell countson 08-23-2021 Erythrocyte distribution width (RBC) [Entitic vol] 42.4 fL 35.1-43.9 [facility] Work Phone: Erythrocyte distribution width (RBC) [Ratio] 12.5 % 11.6-14.6 [facility] Work Phone: Immature granulocytes/100 WBC (Bld) 0.600 % 0.0-0.9 [facility] Work Phone: Comment on above: IG% - Immature Granu locytes (promyelocytes, myelocytes and metamyelocytes) > 1% indicates that a LEFT SHIFT is Present. MCH (RBC) [Entitic mass] 30.7 pg 27.0-32.0 [facility] Work Phone: Nucleated RBC/100 WBC (Bld) [Ratio] 0 % 0-5 [facility] Work Phone: MCHC Auto (RBC) [Mass/Vol]on 08-23-2021 MCHC (RBC) [Mass/Vol] 33.0 g/dL 32-36 [facility] Work Phone: Platelets bldon 08-23-2021 Platelets (Bld) [#/Vol] 198 10*3/uL 150-450 [facility] Work Phone: Basophil percentageon 2021 Basophil percentage 0 SEEN /hpf 0-5 [facility] Work Phone: Bilirubin Test strip Ql (U)o n 08-18-2021 Bilirubin Ql (U) Negative Negative [facility] Work Phone: Culture, urineon 08-18-2021 Bacteria identified Cx Nom (U) Culture exhibits no growth. [facility] Work Phone: Ketones Test strip Ql (U)on 08-18-2021 Ketones Ql (U) Negative Negative [facility] Work Phone: Mucus LM Ql (Urine sed)on Mucus Ql (Urine sed) 0 SEEN /hpf [facility] Work Phone: Nitrite Test strip Ql (U)on 08-18-2021 Nitrite Ql (U) Negative Negative [facility] Work Phone: Protein Test strip Ql (U)on 08-18-2021 Protein Ql (U) Negative Negative [facility] Work Phone: Squamous epithelial cells de tection in urine sediment by light microscopyon 08-18-2021 Epithelial cells.squamous LM Ql (Urine sed) 0 SEEN /hpf 0-5 [facility] Work Phone: Urine blood detectionon 07-31 RBC Ql (U) Negative Negative [facility] Work Phone: RBC Ql (U) 0 SEEN /hpf 0-5 [facility] Work Phone: Urine clarityon 08-18-2021 Clarity (U) Clear Clear [facility] Work Phone: Urine color determinationon 08-18-2021 Color (U) Yellow Yellow [facility] Work Phone: Urine glucose detectionon Glucose Ql (U) Normal mg/dl Normal [facility] Work Phone: Urine leukocyte esterase det ection by dipstickon 08-18-2021 Leukocyte esterase Test strip Ql (U) Negative Negative [facility] Work Phone: Urine pHon 08-18-2021 pH (U) 7.0 [pH] 5.0 - 8.0 [facility] Work Phone: Urine sediment bacteria coun t by microscopy (number/high power field)on 08-18-2021 Bacteria LM.HPF (Urine sed) [#/Area] 0 /[HPF] None Seen [facility] Work Phone: Urine specific gravity measu rementon 08-18-2021 Specific gravity (U) [Rel density] 1.010 1.002-1.030 [facility] Work Phone: Urobilinogen Auto test strip Ql (U)on 08-18-2021 Urobilinogen Ql (U) 4 mg/dl Normal [facility] Work Phone: Absolute lymphocyte counton 08-16-2021 Lymphocytes Auto (Unsp spec) [#/Vol] 1.71 10*3/uL 0.83-4.51 [facility] Work Phone: [phone] Basophil percentageon 2021 Basophils/100 WBC (Bld) 0.3 % 0-1 [facility] Work Phone: [phone] Eosinophils/100 WBC (Bld) 0.2 % 0-5 [facility] Work Phone: Neutrophils (Bld) [#/Vol] 8.6 10*3/uL 2.0-7.7 [facility] Work Phone: Neutrophils/100 WBC (Bld) 76.8 % 47-70 [facility] Work Phone: [phone] WBC (Bld) [#/Vol] 11.2 10*3/uL 4.4-11.0 [facility] Work Phone: Blood erythrocytes count (nu mber/volume)on 08-16-2021 RBC (Bld) [#/Vol] 4.42 10*6/uL 4.6-6.2 [facility] Work Phone: [phone] Blood hemoglobin measurement (mass/volume)on 08-16-2021 Hemoglobin (Bld) [Mass/Vol] 13.4 g/dL 13.0-16.5 [facility] Work Phone: [phone] Blood lymphocytes/100 leukoc yteson 08-16-2021 Lymphocytes/100 WBC (Bld) 15.2 % 19-41 [facility] Work Phone: [phone] Blood monocytes/100 leukocyt eson 08-16-2021 Monocytes/100 WBC (Bld) 7.1 % 0-10 [facility] Work Phone: Blood platelet mean volumeon 08-16-2021 Platelet mean volume (Bld) [Entitic vol] 11.0 fL 6.2-12.0 [facility] Work Phone: Determination of erythrocyte mean corpuscular volume (MCV)on 08-16-2021 MCV (RBC) [Entitic vol] 91.9 fL 80-94 [facility] Work Phone: Hematocrit Auto (Bld) [Volum e fraction]on 08-16-2021 Hematocrit (Bld) [Volume fraction] 40.6 % 40-54 [facility] Work Phone: Laboratory - Hematology and Cell countson 08-16-2021 Erythrocyte distribution width (RBC) [Entitic vol] 43.0 fL 35.1-43.9 [facility] Work Phone: Erythrocyte distribution width (RBC) [Ratio] 12.7 % 11.6-14.6 [facility] Work Phone: Immature granulocytes/100 WBC (Bld) 0.400 % 0.0-0.9 [facility] Work Phone: Comment on above: IG% - Immature Granu locytes (promyelocytes, myelocytes and metamyelocytes) > 1% indicates that a LEFT SHIFT is Present. MCH (RBC) [Entitic mass] 30.3 pg 27.0-32.0 [facility] Work Phone: Nucleated RBC/100 WBC (Bld) [Ratio] 0 % 0-5 [facility] Work Phone: MCHC Auto (RBC) [Mass/Vol]on 08-16-2021 MCHC (RBC) [Mass/Vol] 33.0 g/dL 32-36 [facility] Work Phone: Platelets bldon 08-16-2021 Platelets (Bld) [#/Vol] 187 10*3/uL 150-450 [facility] Work Phone: Absolute lymphocyte counton 08-09-2021 Lymphocytes Auto (Unsp spec) [#/Vol] 1.78 10*3/uL 0.83-4.51 [facility] Work Phone: Basophil percentageon 2021 Basophils/100 WBC (Bld) 0.5 % 0-1 [facility] Work Phone: Eosinophils/100 WBC (Bld) 0.1 % 0-5 [facility] Work Phone: Neutrophils (Bld) [#/Vol] 6.0 10*3/uL 2.0-7.7 [facility] Work Phone: Neutrophils/100 WBC (Bld) 71.3 % 47-70 [facility] Work Phone: WBC (Bld) [#/Vol] 8.4 10*3/uL 4.4-11.0 [facility] Work Phone: Blood erythrocytes count (nu mber/volume)on 08-09-2021 RBC (Bld) [#/Vol] 4.37 10*6/uL 4.6-6.2 [facility] Work Phone: Blood hemoglobin measurement (mass/volume)on 08-09-2021 Hemoglobin (Bld) [Mass/Vol] 13.5 g/dL 13.0-16.5 [facility] Work Phone: Blood lymphocytes/100 leukoc yteson 08-09-2021 Lymphocytes/100 WBC (Bld) 21.2 % 19-41 [facility] Work Phone: Blood monocytes/100 leukocyt eson 08-09-2021 Monocytes/100 WBC (Bld) 6.5 % 0-10 [facility] Work Phone: Blood platelet mean volumeon 08-09-2021 Platelet mean volume (Bld) [Entitic vol] 11.1 fL 6.2-12.0 [facility] Work Phone: Determination of erythrocyte mean corpuscular volume (MCV)on 08-09-2021 MCV (RBC) [Entitic vol] 91.3 fL 80-94 [facility] Work Phone: Hematocrit Auto (Bld) [Volum e fraction]on 08-09-2021 Hematocrit (Bld) [Volume fraction] 39.9 % 40-54 [facility] Work Phone: Laboratory - Hematology and Cell countson 08-09-2021 Erythrocyte distribution width (RBC) [Entitic vol] 41.4 fL 35.1-43.9 [facility] Work Phone: Erythrocyte distribution width (RBC) [Ratio] 12.5 % 11.6-14.6 [facility] Work Phone: Immature granulocytes/100 WBC (Bld) 0.400 % 0.0-0.9 [facility] Work Phone: Comment on above: IG% - Immature Granu locytes (promyelocytes, myelocytes and metamyelocytes) > 1% indicates that a LEFT SHIFT is Present. MCH (RBC) [Entitic mass] 30.9 pg 27.0-32.0 [facility] Work Phone: Nucleated RBC/100 WBC (Bld) [Ratio] 0 % 0-5 [facility] Work Phone: MCHC Auto (RBC) [Mass/Vol]on 08-09-2021 MCHC (RBC) [Mass/Vol] 33.8 g/dL 32-36 [facility] Work Phone: Platelets bldon 08-09-2021 Platelets (Bld) [#/Vol] 177 10*3/uL 150-450 [facility] Work Phone: Absolute lymphocyte counton 08-02-2021 Lymphocytes Auto (Unsp spec) [#/Vol] 1.69 10*3/uL 0.83-4.51 [facility] Work Phone: Basophil percentageon 2021 Basophils/100 WBC (Bld) 0.3 % 0-1 [facility] Work Phone: Eosinophils/100 WBC (Bld) 0.3 % 0-5 [facility] Work Phone: Neutrophils (Bld) [#/Vol] 3.8 10*3/uL 2.0-7.7 [facility] Work Phone: Neutrophils/100 WBC (Bld) 61.9 % 47-70 [facility] Work Phone: WBC (Bld) [#/Vol] 6.1 10*3/uL 4.4-11.0 [facility]: Blood erythrocytes count (nu mber/volume)on 08-02-2021 RBC (Bld) [#/Vol] 4.54 10*6/uL 4.6-6.2 [facility] Work [facility]: Blood hemoglobin measurement (mass/volume)on 08-02-2021 Hemoglobin (Bld) [Mass/Vol] 13.8 g/dL 13.0-16.5 [facility] Work Phone: Blood lymphocytes/100 leukoc yteson 08-02-2021 Lymphocytes/100 WBC (Bld) 27.7 % 19-41 [facility] Work Phone: Blood monocytes/100 leukocyt eson 08-02-2021 Monocytes/100 WBC (Bld) 9.5 % 0-10 [facility] Work Phone: Blood platelet mean volumeon 08-02-2021 Platelet mean volume (Bld) [Entitic vol] 11.2 fL 6.2-12.0 [facility] Work Phone: Determination of erythrocyte mean corpuscular volume (MCV)on 08-02-2021 MCV (RBC) [Entitic vol] 90.1 fL 80-94 [facility] Work Phone: Hematocrit Auto (Bld) [Volum e fraction]on 08-02-2021 Hematocrit (Bld) [Volume fraction] 40.9 % 40-54 [facility] Work Phone: Laboratory - Hematology and Cell countson 08-02-2021 Erythrocyte distribution width (RBC) [Entitic vol] 40.3 fL 35.1-43.9 [facility] Work Phone: Erythrocyte distribution width (RBC) [Ratio] 12.4 % 11.6-14.6 [facility] Work Phone: Immature granulocytes/100 WBC (Bld) 0.300 % 0.0-0.9 [facility] Work Phone: Comment on above: IG% - Immature Granu locytes (promyelocytes, myelocytes and metamyelocytes) > 1% indicates that a LEFT SHIFT is Present. MCH (RBC) [Entitic mass] 30.4 pg 27.0-32.0 [facility] Work Phone: Nucleated RBC/100 WBC (Bld) [Ratio] 0 % 0-5 [facility] Work Phone: MCHC Auto (RBC) [Mass/Vol]on 08-02-2021 MCHC (RBC) [Mass/Vol] 33.7 g/dL 32-36 [facility]: Platelets bldon 08-02-2021 Platelets (Bld) [#/Vol] 192 10*3/uL 150-450 [facility] Work Phone: Absolute lymphocyte counton 07-26-2021 Lymphocytes Auto (Unsp spec) [#/Vol] 1.83 10*3/uL 0.83-4.51 [facility] Work Phone: Basophil percentageon 2021 Basophils/100 WBC (Bld) 0.5 % 0-1 [facility] Work Phone: Eosinophils/100 WBC (Bld) 0.3 % 0-5 [facility] Work Phone: Neutrophils (Bld) [#/Vol] 3.3 10*3/uL 2.0-7.7 [facility] Work Phone: Neutrophils/100 WBC (Bld) 58.1 % 47-70 [facility] Work Phone: WBC (Bld) [#/Vol] 5.7 10*3/uL 4.4-11.0 [facility] Work Phone: Blood erythrocytes count (nu mber/volume)on 07-26-2021 RBC (Bld) [#/Vol] 4.21 10*6/uL 4.6-6.2 [facility] Work Phone: Blood hemoglobin measurement (mass/volume)on 07-26-2021 Hemoglobin (Bld) [Mass/Vol] 12.9 g/dL 13.0-16.5 [facility] Work Phone: Blood lymphocytes/100 leukoc yteson 07-26-2021 Lymphocytes/100 WBC (Bld) 31.9 % 19-41 [facility] Work Phone: Blood monocytes/100 leukocyt eson 07-26-2021 Monocytes/100 WBC (Bld) 8.9 % 0-10 [facility] Work Phone: Blood platelet mean volumeon 07-26-2021 Platelet mean volume (Bld) [Entitic vol] 11.5 fL 6.2-12.0 [facility] Work Phone: Determination of erythrocyte mean corpuscular volume (MCV)on 07-26-2021 MCV (RBC) [Entitic vol] 90.7 fL 80-94 [facility] Work Phone: Hematocrit Auto (Bld) [Volum e fraction]on 07-26-2021 Hematocrit (Bld) [Volume fraction] 38.2 % 40-54 [facility] Work Phone: Laboratory - Hematology and Cell countson 07-26-2021 Erythrocyte distribution width (RBC) [Entitic vol] 41.2 fL 35.1-43.9 [facility] Work Phone: Erythrocyte distribution width (RBC) [Ratio] 12.5 % 11.6-14.6 [facility] Work Phone: Immature granulocytes/100 WBC (Bld) 0.300 % 0.0-0.9 [facility] Work Phone: Comment on above: IG% - Immature Granu locytes (promyelocytes, myelocytes and metamyelocytes) > 1% indicates that a LEFT SHIFT is Present. MCH (RBC) [Entitic mass] 30.6 pg 27.0-32.0 [facility] Work Phone: Nucleated RBC/100 WBC (Bld) [Ratio] 0 % 0-5 [facility] Work Phone: [phone] MCHC Auto (RBC) [Mass/Vol]on 07-26-2021 MCHC (RBC) [Mass/Vol] 33.8 g/dL 32-36 [facility] Work Phone: Platelets bldon 07-26-2021 Platelets (Bld) [#/Vol] 180 10*3/uL 150-450 [facility] Work Phone: Absolute lymphocyte counton 07-19-2021 Lymphocytes Auto (Unsp spec) [#/Vol] 2.04 10*3/uL 0.83-4.51 [facility] Work Phone: Basophil percentageon 2021 Basophils/100 WBC (Bld) 0.3 % 0-1 [facility] Work Phone: Eosinophils/100 WBC (Bld) 0.4 % 0-5 [facility] Work Phone: Neutrophils (Bld) [#/Vol] 4.0 10*3/uL 2.0-7.7 [facility] Work Phone: Neutrophils/100 WBC (Bld) 59.2 % 47-70 [facility] Work Phone: WBC (Bld) [#/Vol] 6.7 10*3/uL 4.4-11.0 [facility] Work Phone: Blood erythrocytes count (nu mber/volume)on 07-19-2021 RBC (Bld) [#/Vol] 4.53 10*6/uL 4.6-6.2 [facility] Work Phone: Blood hemoglobin measurement (mass/volume)on 07-19-2021 Hemoglobin (Bld) [Mass/Vol] 14.1 g/dL 13.0-16.5 [facility] Work Phone: Blood lymphocytes/100 leukoc yteson 07-19-2021 Lymphocytes/100 WBC (Bld) 30.5 % 19-41 [facility] Work Phone: Blood monocytes/100 leukocyt eson 07-19-2021 Monocytes/100 WBC (Bld) 9.0 % 0-10 [facility] Work Phone: Blood platelet mean volumeon 07-19-2021 Platelet mean volume (Bld) [Entitic vol] 11.4 fL 6.2-12.0 [facility] Work Phone: Determination of erythrocyte mean corpuscular volume (MCV)on 07-19-2021 MCV (RBC) [Entitic vol] 90.5 fL 80-94 [facility] Work Phone: Hematocrit Auto (Bld) [Volum e fraction]on 07-19-2021 Hematocrit (Bld) [Volume fraction] 41.0 % 40-54 [facility] Work Phone: Laboratory - Hematology and Cell countson 07-19-2021 Erythrocyte distribution width (RBC) [Entitic vol] 41.1 fL 35.1-43.9 [facility] Work Phone: Erythrocyte distribution width (RBC) [Ratio] 12.5 % 11.6-14.6 [facility] Work Phone: Immature granulocytes/100 WBC (Bld) 0.600 % 0.0-0.9 [facility] Work Phone: Comment on above: IG% - Immature Granu locytes (promyelocytes, myelocytes and metamyelocytes) > 1% indicates that a LEFT SHIFT is Present. MCH (RBC) [Entitic mass] 31.1 pg 27.0-32.0 [facility] Work Phone: Nucleated RBC/100 WBC (Bld) [Ratio] 0 % 0-5 [facility] Work Phone: MCHC Auto (RBC) [Mass/Vol]on 07-19-2021 MCHC (RBC) [Mass/Vol] 34.4 g/dL 32-36 [facility] Work Phone: Platelets bldon 07-19-2021 Platelets (Bld) [#/Vol] 193 10*3/uL 150-450 [facility] Work Phone: Absolute lymphocyte counton 07-12-2021 Lymphocytes Auto (Unsp spec) [#/Vol] 1.42 10*3/uL 0.83-4.51 [facility] Work Phone: Basophil percentageon 2021 Basophils/100 WBC (Bld) 0.6 % 0-1 [facility] Work Phone: Eosinophils/100 WBC (Bld) 0.3 % 0-5 [facility] Work Phone: Neutrophils (Bld) [#/Vol] 4.7 10*3/uL 2.0-7.7 [facility] Work Phone: Neutrophils/100 WBC (Bld) 67.3 % 47-70 [facility] Work Phone: WBC (Bld) [#/Vol] 7.0 10*3/uL 4.4-11.0 [facility] Work Phone: [phone] Blood erythrocytes count (nu mber/volume)on 07-12-2021 RBC (Bld) [#/Vol] 4.61 10*6/uL 4.6-6.2 [facility] Work Phone: [phone] Blood hemoglobin measurement (mass/volume)on 07-12-2021 Hemoglobin (Bld) [Mass/Vol] 14.4 g/dL 13.0-16.5 [facility] Work Phone: Blood lymphocytes/100 leukoc yteson 07-12-2021 Lymphocytes/100 WBC (Bld) 20.4 % 19-41 [facility] Work Phone: Blood monocytes/100 leukocyt eson 07-12-2021 Monocytes/100 WBC (Bld) 11.1 % 0-10 [facility] Work Phone: Blood platelet mean volumeon 07-12-2021 Platelet mean volume (Bld) [Entitic vol] 11.2 fL 6.2-12.0 [facility] Work Phone: Determination of erythrocyte mean corpuscular volume (MCV)on 07-12-2021 MCV (RBC) [Entitic vol] 91.1 fL 80-94 [facility] Work Phone: Hematocrit Auto (Bld) [Volum e fraction]on 07-12-2021 Hematocrit (Bld) [Volume fraction] 42.0 % 40-54 [facility] Work Phone: Laboratory - Hematology and Cell countson 07-12-2021 Erythrocyte distribution width (RBC) [Entitic vol] 41.4 fL 35.1-43.9 [facility] Work Phone: Erythrocyte distribution width (RBC) [Ratio] 12.6 % 11.6-14.6 [facility] Work Phone: Immature granulocytes/100 WBC (Bld) 0.300 % 0.0-0.9 [facility] Work Phone: Comment on above: IG% - Immature Granu locytes (promyelocytes, myelocytes and metamyelocytes) > 1% indicates that a LEFT SHIFT is Present. MCH (RBC) [Entitic mass] 31.2 pg 27.0-32.0 [facility] Work Phone: Nucleated RBC/100 WBC (Bld) [Ratio] 0 % 0-5 [facility] Work Phone: [phone] MCHC Auto (RBC) [Mass/Vol]on 07-12-2021 MCHC (RBC) [Mass/Vol] 34.3 g/dL 32-36 [facility] Work Phone: Platelets bldon 07-12-2021 Platelets (Bld) [#/Vol] 184 10*3/uL 150-450 [facility] Work Phone: Absolute lymphocyte counton 07-05-2021 Lymphocytes Auto (Unsp spec) [#/Vol] 1.55 10*3/uL 0.83-4.51 [facility] Work Phone: Basophil percentageon 2021 Basophils/100 WBC (Bld) 0.4 % 0-1 [facility] Work Phone: Cholesterol [Mass/Vol] 148 mg/dL <200 [facility] Work Phone: Comment on above: <200 mg/dL Desirable 200-240 mg/dL Borderline >240 mg/dL High Risk Eosinophils/100 WBC (Bld) 0.3 % 0-5 [facility] Work Phone: Neutrophils (Bld) [#/Vol] 5.5 10*3/uL 2.0-7.7 [facility] Work Phone: Neutrophils/100 WBC (Bld) 70.9 % 47-70 [facility] Work Phone: Triglyceride [Mass/Vol] 201 mg/dL <199 [facility] Work Phone: Comment on above: The drugs N-Acetylcy steine and Metamizole may falsely depress this assay.Serum Triglycerides Reference Interval Normal <150 mg/dL Borderline high 150 - 199 mg/dL High 200 - 499 mg/dL Very High > or = 500 mg/dL WBC (Bld) [#/Vol] 7.8 10*3/uL 4.4-11.0 [facility] Work Phone: Blood erythrocytes count (nu mber/volume)on 07-05-2021 RBC (Bld) [#/Vol] 4.46 10*6/uL 4.6-6.2 [facility] Work Phone: Blood hemoglobin measurement (mass/volume)on 07-05-2021 Hemoglobin (Bld) [Mass/Vol] 13.4 g/dL 13.0-16.5 [facility] Work Phone: Blood lymphocytes/100 leukoc yteson 07-05-2021 Lymphocytes/100 WBC (Bld) 20.0 % 19-41 [facility] Work Phone: Blood monocytes/100 leukocyt eson 07-05-2021 Monocytes/100 WBC (Bld) 8.1 % 0-10 [facility] Work Phone: Blood platelet mean volumeon 07-05-2021 Platelet mean volume (Bld) [Entitic vol] 11.7 fL 6.2-12.0 [facility] Work Phone: Determination of erythrocyte mean corpuscular volume (MCV)on 07-05-2021 MCV (RBC) [Entitic vol] 91.0 fL 80-94 [facility] Work Phone: Hematocrit Auto (Bld) [Volum e fraction]on 07-05-2021 Hematocrit (Bld) [Volume fraction] 40.6 % 40-54 [facility] Work Phone: Laboratory - Hematology and Cell countson 07-05-2021 Erythrocyte distribution width (RBC) [Entitic vol] 41.9 fL 35.1-43.9 [facility] Work Phone: Erythrocyte distribution width (RBC) [Ratio] 12.8 % 11.6-14.6 [facility] Work Phone: Immature granulocytes/100 WBC (Bld) 0.300 % 0.0-0.9 [facility] Work Phone: Comment on above: IG% - Immature Granu locytes (promyelocytes, myelocytes and metamyelocytes) > 1% indicates that a LEFT SHIFT is Present. MCH (RBC) [Entitic mass] 30.0 pg 27.0-32.0 [facility] Work Phone: Nucleated RBC/100 WBC (Bld) [Ratio] 0 % 0-5 [facility] Work Phone: MCHC Auto (RBC) [Mass/Vol]on 07-05-2021 MCHC (RBC) [Mass/Vol] 33.0 g/dL 32-36 [facility] Work Phone: Platelets bldon 07-05-2021 Platelets (Bld) [#/Vol] 186 10*3/uL 150-450 [facility] Work Phone: Serum or plasma cholesterol in HDL measurement (mass/volume)on 07-05-2021 Cholesterol in HDL [Mass/Vol] 30 mg/dL >40 [facility] Work Phone: Comment on above: The drugs N-Acetylcy steine and Metamizole may falsely depress this assay. Reference Range HDL <40 mg/dL Low HDL Cholesterol HDL >or= 60 mg/dL High HDL Cholesterol Serum or plasma cholesterol in VLDL measurement (mass/volume)on 07-05-2021 Cholesterol in VLDL [Mass/Vol] 40 mg/dL 5-40 [facility] Work Phone: Serum or plasma low density lipoprotein (LDL) cholesterol measurement (mass/volume)on 07-05-2021 Cholesterol in LDL [Mass/Vol] 78 mg/dL 0-130 [facility] Work Phone: Absolute lymphocyte counton 06-28-2021 Lymphocytes Auto (Unsp spec) [#/Vol] 2.01 10*3/uL 0.83-4.51 [facility] Work Phone: Basophil percentageon 2021 Basophils/100 WBC (Bld) 0.5 % 0-1 [facility] Work Phone: Eosinophils/100 WBC (Bld) 0.3 % 0-5 [facility] Work Phone: Neutrophils (Bld) [#/Vol] 3.3 10*3/uL 2.0-7.7 [facility] Work Phone: Neutrophils/100 WBC (Bld) 55.5 % 47-70 [facility] Work Phone: WBC (Bld) [#/Vol] 6.0 10*3/uL 4.4-11.0 [facility] Work [facility]: Blood erythrocytes count (nu mber/volume)on 06-28-2021 RBC (Bld) [#/Vol] 4.32 10*6/uL 4.6-6.2 [facility] Work Phone: Blood hemoglobin measurement (mass/volume)on 06-28-2021 Hemoglobin (Bld) [Mass/Vol] 13.5 g/dL 13.0-16.5 [facility] Work Phone: Blood lymphocytes/100 leukoc yteson 06-28-2021 Lymphocytes/100 WBC (Bld) 33.5 % 19-41 [facility] Work Phone: Blood monocytes/100 leukocyt eson 06-28-2021 Monocytes/100 WBC (Bld) 10.0 % 0-10 [facility] Work Phone: Blood platelet mean volumeon 06-28-2021 Platelet mean volume (Bld) [Entitic vol] 11.8 fL 6.2-12.0 [facility] Work Phone: Determination of erythrocyte mean corpuscular volume (MCV)on 06-28-2021 MCV (RBC) [Entitic vol] 89.8 fL 80-94 [facility] Work Phone: Hematocrit Auto (Bld) [Volum e fraction]on 06-28-2021 Hematocrit (Bld) [Volume fraction] 38.8 % 40-54 [facility] Work Phone: Laboratory - Hematology and Cell countson 06-28-2021 Erythrocyte distribution width (RBC) [Entitic vol] 40.6 fL 35.1-43.9 [facility] Work Phone: Erythrocyte distribution width (RBC) [Ratio] 12.5 % 11.6-14.6 [facility] Work Phone: Immature granulocytes/100 WBC (Bld) 0.200 % 0.0-0.9 [facility] Work Phone: Comment on above: IG% - Immature Granu locytes (promyelocytes, myelocytes and metamyelocytes) > 1% indicates that a LEFT SHIFT is Present. MCH (RBC) [Entitic mass] 31.3 pg 27.0-32.0 [facility] Work Phone: Nucleated RBC/100 WBC (Bld) [Ratio] 0 % 0-5 [facility] Work Phone: MCHC Auto (RBC) [Mass/Vol]on 06-28-2021 MCHC (RBC) [Mass/Vol] 34.8 g/dL 32-36 [facility] Work Phone: Platelets bldon 06-28-2021 Platelets (Bld) [#/Vol] 185 10*3/uL 150-450 [facility] Work Phone: Absolute lymphocyte counton 06-21-2021 Lymphocytes Auto (Unsp spec) [#/Vol] 1.78 10*3/uL 0.83-4.51 [facility] Work Phone: Basophil percentageon 2021 Basophils/100 WBC (Bld) 0.3 % 0-1 [facility] Work Phone: Eosinophils/100 WBC (Bld) 0.4 % 0-5 [facility] Work Phone: Neutrophils (Bld) [#/Vol] 4.2 10*3/uL 2.0-7.7 [facility] Work Phone: Neutrophils/100 WBC (Bld) 62.7 % 47-70 [facility] Work Phone: WBC (Bld) [#/Vol] 6.8 10*3/uL 4.4-11.0 [facility] Work [facility]: Blood erythrocytes count (nu mber/volume)on 06-21-2021 RBC (Bld) [#/Vol] 4.21 10*6/uL 4.6-6.2 [facility] Work Phone: Blood hemoglobin measurement (mass/volume)on 06-21-2021 Hemoglobin (Bld) [Mass/Vol] 13.3 g/dL 13.0-16.5 [facility] Work Phone: Blood lymphocytes/100 leukoc yteson 06-21-2021 Lymphocytes/100 WBC (Bld) 26.3 % 19-41 [facility] Work Phone: Blood monocytes/100 leukocyt eson 06-21-2021 Monocytes/100 WBC (Bld) 9.9 % 0-10 [facility] Work Phone: Blood platelet mean volumeon 06-21-2021 Platelet mean volume (Bld) [Entitic vol] 11.5 fL 6.2-12.0 [facility] Work Phone: Determination of erythrocyte mean corpuscular volume (MCV)on 06-21-2021 MCV (RBC) [Entitic vol] 91.0 fL 80-94 [facility] Work Phone: Hematocrit Auto (Bld) [Volum e fraction]on 06-21-2021 Hematocrit (Bld) [Volume fraction] 38.3 % 40-54 [facility] Work Phone: Laboratory - Hematology and Cell countson 06-21-2021 Erythrocyte distribution width (RBC) [Entitic vol] 40.2 fL 35.1-43.9 [facility] Work Phone: Erythrocyte distribution width (RBC) [Ratio] 12.2 % 11.6-14.6 [facility] Work Phone: Immature granulocytes/100 WBC (Bld) 0.400 % 0.0-0.9 [facility] Work Phone: Comment on above: IG% - Immature Granu locytes (promyelocytes, myelocytes and metamyelocytes) > 1% indicates that a LEFT SHIFT is Present. MCH (RBC) [Entitic mass] 31.6 pg 27.0-32.0 [facility] Work Phone: [phone] Nucleated RBC/100 WBC (Bld) [Ratio] 0 % 0-5 [facility] Work Phone: [phone] MCHC Auto (RBC) [Mass/Vol]on 06-21-2021 MCHC (RBC) [Mass/Vol] 34.7 g/dL 32-36 [facility] Work Phone: [phone] Platelets bldon 06-21-2021 Platelets (Bld) [#/Vol] 217 10*3/uL 150-450 [facility] Work Phone: [phone] Absolute lymphocyte counton 06-14-2021 Lymphocytes Auto (Unsp spec) [#/Vol] 1.41 10*3/uL 0.83-4.51 [facility] Work Phone: [phone] Basophil percentageon 2021 Basophils/100 WBC (Bld) 0.4 % 0-1 [facility] Work Phone: [phone] Chloride [Moles/Vol] 106 mmol/L 98-107 [facility] Work Phone: Eosinophils/100 WBC (Bld) 0.6 % 0-5 [facility] Work Phone: [phone] Glucose [Mass/Vol] 121 mg/dL 74-106 [facility] Work Phone: Comment on above: Fasting Glucose resu lt from 100 to 125 mg/dL suggests IMPAIRED HOMEOSTASIS per A.D.A. criteria. Neutrophils (Bld) [#/Vol] 4.8 10*3/uL 2.0-7.7 [facility] Work Phone: [phone] Neutrophils/100 WBC (Bld) 69.9 % 47-70 [facility] Work Phone: Potassium [Moles/Vol] 3.7 mmol/L 3.5-5.1 [facility] Work Phone: Sodium [Moles/Vol] 140 mmol/L 136-145 [facility] Work Phone: WBC (Bld) [#/Vol] 6.8 10*3/uL 4.4-11.0 [facility] Work Phone: Blood erythrocytes count (nu mber/volume)on 06-14-2021 RBC (Bld) [#/Vol] 4.78 10*6/uL 4.6-6.2 [facility] Work Phone: Blood hemoglobin measurement (mass/volume)on 06-14-2021 Hemoglobin (Bld) [Mass/Vol] 14.9 g/dL 13.0-16.5 [facility] Work Phone: Blood lymphocytes/100 leukoc yteson 06-14-2021 Lymphocytes/100 WBC (Bld) 20.8 % 19-41 [facility] Work Phone: Blood monocytes/100 leukocyt eson 06-14-2021 Monocytes/100 WBC (Bld) 7.7 % 0-10 [facility] Work Phone: Blood platelet mean volumeon 06-14-2021 Platelet mean volume (Bld) [Entitic vol] 11.5 fL 6.2-12.0 [facility] Work Phone: Determination of erythrocyte mean corpuscular volume (MCV)on 06-14-2021 MCV (RBC) [Entitic vol] 89.5 fL 80-94 [facility] Work Phone: Hematocrit Auto (Bld) [Volum e fraction]on 06-14-2021 Hematocrit (Bld) [Volume fraction] 42.8 % 40-54 [facility] Work Phone: Laboratory - Chemistry and C hemistry - challengeon 06-14-2021 CO2 [Moles/Vol] 27.0 mmol/L 21.0-32.0 [facility] Work Phone: Urea nitrogen/Creatinine [Mass ratio] 35.0 mg/mg 10-20 [facility] Work Phone: Laboratory - Hematology and Cell countson 06-14-2021 Erythrocyte distribution width (RBC) [Entitic vol] 39.3 fL 35.1-43.9 [facility] Work Phone: Erythrocyte distribution width (RBC) [Ratio] 12.0 % 11.6-14.6 [facility] Work Phone: Immature granulocytes/100 WBC (Bld) 0.600 % 0.0-0.9 [facility] Work Phone: Comment on above: IG% - Immature Granu locytes (promyelocytes, myelocytes and metamyelocytes) > 1% indicates that a LEFT SHIFT is Present. MCH (RBC) [Entitic mass] 31.2 pg 27.0-32.0 [facility] Work Phone: Nucleated RBC/100 WBC (Bld) [Ratio] 0 % 0-5 [facility] Work Phone: MCHC Auto (RBC) [Mass/Vol]on 06-14-2021 MCHC (RBC) [Mass/Vol] 34.8 g/dL 32-36 [facility] Work Phone: No Panel Informationon 06-14 Estimated GFR (MDRD) Amer 185 mL/min >60 [facility] Work Phone: Comment on above: GFR Calc Estimated GFR (MDRD) Non-Af Amer 153 mL/min >60 [facility] Work Phone: Comment on above: Non- GFR Calc Platelets bldon 06-14-2021 Platelets (Bld) [#/Vol] 223 10*3/uL 150-450 [facility] Work Phone: Serum or plasma calcium gordy urement (mass/volume)on 06-14-2021 Calcium [Mass/Vol] 8.0 mg/dL 8.5-10.1 [facility] Work Phone: Serum or plasma creatinine m easurement (mass/volume)on 06-14-2021 Creatinine [Mass/Vol] 0.57 mg/dL 0.70-1.30 [facility] Work Phone: Comment on above: The validity of the calculated GFR & GFRAA in patients over 70 years has not been determined. Clinical correlation is essential. Serum or plasma urea nitroge n measurement (mass/volume)on 06-14-2021 Urea nitrogen [Mass/Vol] 20 mg/dL 7-18 [facility] Work Phone: Thin prep Papanicolaou smear with manual screeningon 06-14-2021 Thin prep Papanicolaou smear with manual screening 7 5-15 [facility] Work Phone: Absolute lymphocyte counton 06-07-2021 Lymphocytes Auto (Unsp spec) [#/Vol] 1.38 10*3/uL 0.83-4.51 [facility] Work Phone: Basophil percentageon 2021 Basophils/100 WBC (Bld) 0.2 % 0-1 [facility] Work Phone: Eosinophils/100 WBC (Bld) 0.0 % 0-5 [facility] Work Phone: Neutrophils (Bld) [#/Vol] 7.3 10*3/uL 2.0-7.7 [facility] Work Phone: Neutrophils/100 WBC (Bld) 75.3 % 47-70 [facility] Work Phone: WBC (Bld) [#/Vol] 9.7 10*3/uL 4.4-11.0 [facility] Work Phone: Blood erythrocytes count (nu mber/volume)on 06-07-2021 RBC (Bld) [#/Vol] 4.48 10*6/uL 4.6-6.2 [facility] Work Phone: Blood hemoglobin measurement (mass/volume)on 06-07-2021 Hemoglobin (Bld) [Mass/Vol] 13.8 g/dL 13.0-16.5 [facility] Work Phone: Blood lymphocytes/100 leukoc yteson 06-07-2021 Lymphocytes/100 WBC (Bld) 14.2 % 19-41 [facility] Work Phone: Blood monocytes/100 leukocyt eson 06-07-2021 Monocytes/100 WBC (Bld) 10.2 % 0-10 [facility] Work Phone: Blood platelet mean volumeon 06-07-2021 Platelet mean volume (Bld) [Entitic vol] 11.9 fL 6.2-12.0 [facility] Work Phone: Determination of erythrocyte mean corpuscular volume (MCV)on 06-07-2021 MCV (RBC) [Entitic vol] 92.9 fL 80-94 [facility] Work Phone: Hematocrit Auto (Bld) [Volum e fraction]on 06-07-2021 Hematocrit (Bld) [Volume fraction] 41.6 % 40-54 [facility] Work Phone: Laboratory - Hematology and Cell countson 06-07-2021 Erythrocyte distribution width (RBC) [Entitic vol] 43.8 fL 35.1-43.9 [facility] Work Phone: Erythrocyte distribution width (RBC) [Ratio] 12.8 % 11.6-14.6 [facility] Work Phone: Immature granulocytes/100 WBC (Bld) 0.100 % 0.0-0.9 [facility] Work Phone: Comment on above: IG% - Immature Granu locytes (promyelocytes, myelocytes and metamyelocytes) > 1% indicates that a LEFT SHIFT is Present. MCH (RBC) [Entitic mass] 30.8 pg 27.0-32.0 [facility] Work Phone: Nucleated RBC/100 WBC (Bld) [Ratio] 0 % 0-5 [facility] Work Phone: MCHC Auto (RBC) [Mass/Vol]on 06-07-2021 MCHC (RBC) [Mass/Vol] 33.2 g/dL 32-36 [facility] Work Phone: Platelets bldon 06-07-2021 Platelets (Bld) [#/Vol] 152 10*3/uL 150-450 [facility] Work Phone: [phone] Absolute lymphocyte counton 05-31-2021 Lymphocytes Auto (Unsp spec) [#/Vol] 1.72 10*3/uL 0.83-4.51 [facility] Work Phone: Basophil percentageon 2021 Basophils/100 WBC (Bld) 0.7 % 0-1 [facility] Work Phone: Eosinophils/100 WBC (Bld) 1.1 % 0-5 [facility] Work Phone: Neutrophils (Bld) [#/Vol] 3.3 10*3/uL 2.0-7.7 [facility] Work Phone: Neutrophils/100 WBC (Bld) 58.5 % 47-70 [facility] Work Phone: [phone] WBC (Bld) [#/Vol] 5.6 10*3/uL 4.4-11.0 [facility] Work Phone: Blood erythrocytes count (nu mber/volume)on 05-31-2021 RBC (Bld) [#/Vol] 4.44 10*6/uL 4.6-6.2 [facility] Work Phone: Blood hemoglobin measurement (mass/volume)on 05-31-2021 Hemoglobin (Bld) [Mass/Vol] 13.6 g/dL 13.0-16.5 [facility] Work Phone: Blood lymphocytes/100 leukoc yteson 01-31-2022 Lymphocytes/100 WBC (Bld) 30.7 % 19-41 [facility] Work Phone: Blood monocytes/100 leukocyt eson 05-31-2021 Monocytes/100 WBC (Bld) 8.6 % 0-10 [facility] Work Phone: Blood platelet mean volumeon 05-31-2021 Platelet mean volume (Bld) [Entitic vol] 11.2 fL 6.2-12.0 [facility] Work Phone: Determination of erythrocyte mean corpuscular volume (MCV)on 05-31-2021 MCV (RBC) [Entitic vol] 92.1 fL 80-94 [facility] Work Phone: Hematocrit Auto (Bld) [Volum e fraction]on 05-31-2021 Hematocrit (Bld) [Volume fraction] 40.9 % 40-54 [facility] Work Phone: Laboratory - Hematology and Cell countson 05-31-2021 Erythrocyte distribution width (RBC) [Entitic vol] 42.2 fL 35.1-43.9 [facility] Work Phone: Erythrocyte distribution width (RBC) [Ratio] 12.4 % 11.6-14.6 [facility] Work Phone: Immature granulocytes/100 WBC (Bld) 0.400 % 0.0-0.9 [facility] Work Phone: Comment on above: IG% - Immature Granu locytes (promyelocytes, myelocytes and metamyelocytes) > 1% indicates that a LEFT SHIFT is Present. MCH (RBC) [Entitic mass] 30.6 pg 27.0-32.0 [facility] Work Phone: Nucleated RBC/100 WBC (Bld) [Ratio] 0 % 0-5 [facility] Work Phone: MCHC Auto (RBC) [Mass/Vol]on 05-31-2021 MCHC (RBC) [Mass/Vol] 33.3 g/dL 32-36 [facility]: Platelets bldon 05-31-2021 Platelets (Bld) [#/Vol] 189 10*3/uL 150-450 [facility] Work Phone: Absolute lymphocyte counton 05-24-2021 Lymphocytes Auto (Unsp spec) [#/Vol] 1.58 10*3/uL 0.83-4.51 [facility] Work Phone: Basophil percentageon 2021 Basophils/100 WBC (Bld) 0.8 % 0-1 [facility] Work Phone: [phone] Eosinophils/100 WBC (Bld) 2.4 % 0-5 [facility] Work Phone: Neutrophils (Bld) [#/Vol] 3.8 10*3/uL 2.0-7.7 [facility] Work Phone: Neutrophils/100 WBC (Bld) 60.3 % 47-70 [facility] Work Phone: WBC (Bld) [#/Vol] 6.3 10*3/uL 4.4-11.0 [facility]: Blood erythrocytes count (nu mber/volume)on 05-24-2021 RBC (Bld) [#/Vol] 4.50 10*6/uL 4.6-6.2 [facility] Work [facility]: Blood hemoglobin measurement (mass/volume)on 05-24-2021 Hemoglobin (Bld) [Mass/Vol] 13.7 g/dL 13.0-16.5 [facility] Work Phone: Blood lymphocytes/100 leukoc yteson 05-24-2021 Lymphocytes/100 WBC (Bld) 25.0 % 19-41 [facility] Work Phone: [phone] Blood monocytes/100 leukocyt eson 05-24-2021 Monocytes/100 WBC (Bld) 11.2 % 0-10 [facility] Work Phone: Blood platelet mean volumeon 05-24-2021 Platelet mean volume (Bld) [Entitic vol] 11.3 fL 6.2-12.0 [facility] Work Phone: Determination of erythrocyte mean corpuscular volume (MCV)on 05-24-2021 MCV (RBC) [Entitic vol] 92.9 fL 80-94 [facility] Work Phone: Hematocrit Auto (Bld) [Volum e fraction]on 05-24-2021 Hematocrit (Bld) [Volume fraction] 41.8 % 40-54 [facility] Work Phone: Laboratory - Hematology and Cell countson 05-24-2021 Erythrocyte distribution width (RBC) [Entitic vol] 42.8 fL 35.1-43.9 [facility] Work Phone: Erythrocyte distribution width (RBC) [Ratio] 12.6 % 11.6-14.6 [facility] Work Phone: Immature granulocytes/100 WBC (Bld) 0.300 % 0.0-0.9 [facility] Work Phone: Comment on above: IG% - Immature Granu locytes (promyelocytes, myelocytes and metamyelocytes) > 1% indicates that a LEFT SHIFT is Present. MCH (RBC) [Entitic mass] 30.4 pg 27.0-32.0 [facility] Work Phone: Nucleated RBC/100 WBC (Bld) [Ratio] 0 % 0-5 [facility] Work Phone: MCHC Auto (RBC) [Mass/Vol]on 05-24-2021 MCHC (RBC) [Mass/Vol] 32.8 g/dL 32-36 [facility] Work [facility]: Platelets bldon 05-24-2021 Platelets (Bld) [#/Vol] 207 10*3/uL 150-450 [facility] Work Phone: Absolute lymphocyte counton 05-17-2021 Lymphocytes Auto (Unsp spec) [#/Vol] 1.59 10*3/uL 0.83-4.51 [facility] Work Phone: Basophil percentageon 2021 Basophils/100 WBC (Bld) 0.7 % 0-1 [facility] Work Phone: Eosinophils/100 WBC (Bld) 1.7 % 0-5 [facility] Work Phone: Neutrophils (Bld) [#/Vol] 3.5 10*3/uL 2.0-7.7 [facility] Work Phone: [phone] Neutrophils/100 WBC (Bld) 59.5 % 47-70 [facility] Work Phone: [phone] WBC (Bld) [#/Vol] 5.9 10*3/uL 4.4-11.0 [facility] Work Phone: Blood erythrocytes count (nu mber/volume)on 05-17-2021 RBC (Bld) [#/Vol] 4.35 10*6/uL 4.6-6.2 [facility] Work Phone: Blood hemoglobin measurement (mass/volume)on 05-17-2021 Hemoglobin (Bld) [Mass/Vol] 13.4 g/dL 13.0-16.5 [facility] Work Phone: Blood lymphocytes/100 leukoc yteson 05-17-2021 Lymphocytes/100 WBC (Bld) 26.9 % 19-41 [facility] Work Phone: Blood monocytes/100 leukocyt eson 05-17-2021 Monocytes/100 WBC (Bld) 11.0 % 0-10 [facility] Work Phone: Blood platelet mean volumeon 05-17-2021 Platelet mean volume (Bld) [Entitic vol] 11.5 fL 6.2-12.0 [facility] Work Phone: Determination of erythrocyte mean corpuscular volume (MCV)on 05-17-2021 MCV (RBC) [Entitic vol] 92.9 fL 80-94 [facility] Work Phone: Hematocrit Auto (Bld) [Volum e fraction]on 05-17-2021 Hematocrit (Bld) [Volume fraction] 40.4 % 40-54 [facility] Work Phone: Laboratory - Hematology and Cell countson 05-17-2021 Erythrocyte distribution width (RBC) [Entitic vol] 43.4 fL 35.1-43.9 [facility] Work Phone: Erythrocyte distribution width (RBC) [Ratio] 12.7 % 11.6-14.6 [facility] Work Phone: Immature granulocytes/100 WBC (Bld) 0.200 % 0.0-0.9 [facility] Work Phone: Comment on above: IG% - Immature Granu locytes (promyelocytes, myelocytes and metamyelocytes) > 1% indicates that a LEFT SHIFT is Present. MCH (RBC) [Entitic mass] 30.8 pg 27.0-32.0 [facility] Work Phone: Nucleated RBC/100 WBC (Bld) [Ratio] 0 % 0-5 [facility] Work Phone: MCHC Auto (RBC) [Mass/Vol]on 05-17-2021 MCHC (RBC) [Mass/Vol] 33.2 g/dL 32-36 [facility] Work Phone: Platelets bldon 05-17-2021 Platelets (Bld) [#/Vol] 171 10*3/uL 150-450 [facility] Work Phone: ED Provider Noteon 2 ED Provider Note Emergency Department Encounter [facility] Patient: Kathya Hooper : 1955 Date [...] [employer] Timothy Burton DO 05/15/21 1530 [facility] ED Provider Note [place] eMERGENCY dEPARTMENT eNCOUnter Pt Name: Kathya [...] ? TREVER (acute kidney injury) ([facility]) ? Alcohol abuse 07/08/2018 ? Anxiety ? C1 spinal cord injury ([facility]) ? Depression ? Fall 06/2018 ? Schizophrenia ([facility]) SURGICAL HISTORY Past Surgical History: [...] (more content not included)... Normal [facility] Basophil percentageon 2021 Chloride [Moles/Vol] 105 mmol/L 98-[address] [facility] Work Phone: Glucose [Mass/Vol] 96 mg/dL 74-106 [facility] Work Phone: [phone] Potassium [Moles/Vol] 3.5 mmol/L 3.5-5.1 [facility] Work Phone: Sodium [Moles/Vol] 141 mmol/L 136-145 [facility] Work Phone: Laboratory - Chemistry and C hemistry - challengeon 05-14-2021 CO2 [Moles/Vol] 30.0 mmol/L 21.0-32.0 [facility] Work Phone: Urea nitrogen/Creatinine [Mass ratio] 39.2 mg/mg 10-20 [facility] Work Phone: No Panel Informationon 05-14 Estimated GFR (MDRD) Amer 210 mL/min >60 [facility] Work Phone: Comment on above: GFR Calc Estimated GFR (MDRD) Non-Af Amer 174 mL/min >60 [facility] Work Phone: Comment on above: Non- GFR Calc Serum or plasma calcium gordy urement (mass/volume)on 05-14-2021 Calcium [Mass/Vol] 8.4 mg/dL 8.5-10.1 [facility] Work Phone: Serum or plasma creatinine m easurement (mass/volume)on 05-14-2021 Creatinine [Mass/Vol] 0.51 mg/dL 0.70-1.30 [facility] Work Phone: Comment on above: The validity of the calculated GFR & GFRAA in patients over 70 years has not been determined. Clinical correlation is essential. Serum or plasma urea nitroge n measurement (mass/volume)on 05-14-2021 Urea nitrogen [Mass/Vol] 20 mg/dL 7-18 [facility] Work Phone: Thin prep Papanicolaou smear with manual screeningon 05-14-2021 Thin prep Papanicolaou smear with manual screening 6 5-15 [facility] Work Phone: Absolute lymphocyte counton 05-10-2021 Lymphocytes Auto (Unsp spec) [#/Vol] 1.65 10*3/uL 0.83-4.51 [facility] Work Phone: Basophil percentageon 2021 Basophils/100 WBC (Bld) 0.5 % 0-1 [facility] Work Phone: Eosinophils/100 WBC (Bld) 0.7 % 0-5 [facility] Work Phone: Neutrophils (Bld) [#/Vol] 5.6 10*3/uL 2.0-7.7 [facility] Work Phone: Neutrophils/100 WBC (Bld) 69.5 % 47-70 [facility] Work Phone: WBC (Bld) [#/Vol] 8.1 10*3/uL 4.4-11.0 [facility] Work Phone: Blood erythrocytes count (nu mber/volume)on 05-10-2021 RBC (Bld) [#/Vol] 4.52 10*6/uL 4.6-6.2 [facility] Work Phone: Blood hemoglobin measurement (mass/volume)on 05-10-2021 Hemoglobin (Bld) [Mass/Vol] 13.8 g/dL 13.0-16.5 [facility] Work Phone: Blood lymphocytes/100 leukoc yteson 05-10-2021 Lymphocytes/100 WBC (Bld) 20.4 % 19-41 [facility] Work Phone: Blood monocytes/100 leukocyt eson 05-10-2021 Monocytes/100 WBC (Bld) 8.4 % 0-10 [facility] Work Phone: Blood platelet mean volumeon 05-10-2021 Platelet mean volume (Bld) [Entitic vol] 11.3 fL 6.2-12.0 [facility] Work Phone: Determination of erythrocyte mean corpuscular volume (MCV)on 05-10-2021 MCV (RBC) [Entitic vol] 91.8 fL 80-94 [facility] Work Phone: Hematocrit Auto (Bld) [Volum e fraction]on 05-10-2021 Hematocrit (Bld) [Volume fraction] 41.5 % 40-54 [facility] Work Phone: Laboratory - Hematology and Cell countson 05-10-2021 Erythrocyte distribution width (RBC) [Entitic vol] 42.9 fL 35.1-43.9 [facility] Work Phone: Erythrocyte distribution width (RBC) [Ratio] 12.8 % 11.6-14.6 [facility] Work Phone: Immature granulocytes/100 WBC (Bld) 0.500 % 0.0-0.9 [facility] Work Phone: Comment on above: IG% - Immature Granu locytes (promyelocytes, myelocytes and metamyelocytes) > 1% indicates that a LEFT SHIFT is Present. MCH (RBC) [Entitic mass] 30.5 pg 27.0-32.0 [facility] Work Phone: Nucleated RBC/100 WBC (Bld) [Ratio] 0 % 0-5 [facility] Work Phone: [phone] MCHC Auto (RBC) [Mass/Vol]on 05-10-2021 MCHC (RBC) [Mass/Vol] 33.3 g/dL 32-36 [facility] Work Phone: Platelets bldon 05-10-2021 Platelets (Bld) [#/Vol] 191 10*3/uL 150-450 [facility] Work Phone: Absolute lymphocyte counton 05-03-2021 Lymphocytes Auto (Unsp spec) [#/Vol] 1.69 10*3/uL 0.83-4.51 [facility] Work Phone: Basophil percentageon 2021 Basophils/100 WBC (Bld) 0.6 % 0-1 [facility] Work Phone: Eosinophils/100 WBC (Bld) 0.7 % 0-5 [facility] Work Phone: Neutrophils (Bld) [#/Vol] 4.6 10*3/uL 2.0-7.7 [facility] Work Phone: Neutrophils/100 WBC (Bld) 64.4 % 47-70 [facility] Work Phone: WBC (Bld) [#/Vol] 7.2 10*3/uL 4.4-11.0 [facility] Work Phone: Blood erythrocytes count (nu mber/volume)on 05-03-2021 RBC (Bld) [#/Vol] 4.55 10*6/uL 4.6-6.2 [facility] Work Phone: Blood hemoglobin measurement (mass/volume)on 05-03-2021 Hemoglobin (Bld) [Mass/Vol] 14.0 g/dL 13.0-16.5 [facility] Work Phone: Blood lymphocytes/100 leukoc yteson 05-03-2021 Lymphocytes/100 WBC (Bld) 23.6 % 19-41 [facility] Work Phone: Blood monocytes/100 leukocyt eson 05-03-2021 Monocytes/100 WBC (Bld) 10.3 % 0-10 [facility] Work Phone: Blood platelet mean volumeon 05-03-2021 Platelet mean volume (Bld) [Entitic vol] 11.7 fL 6.2-12.0 [facility] Work Phone: Determination of erythrocyte mean corpuscular volume (MCV)on 05-03-2021 MCV (RBC) [Entitic vol] 93.2 fL 80-94 [facility] Work Phone: Hematocrit Auto (Bld) [Volum e fraction]on 05-03-2021 Hematocrit (Bld) [Volume fraction] 42.4 % 40-54 [facility] Work Phone: Laboratory - Hematology and Cell countson 05-03-2021 Erythrocyte distribution width (RBC) [Entitic vol] 44.2 fL 35.1-43.9 [facility] Work Phone: Erythrocyte distribution width (RBC) [Ratio] 13.1 % 11.6-14.6 [facility] Work Phone: Immature granulocytes/100 WBC (Bld) 0.400 % 0.0-0.9 [facility] Work Phone: Comment on above: IG% - Immature Granu locytes (promyelocytes, myelocytes and metamyelocytes) > 1% indicates that a LEFT SHIFT is Present. MCH (RBC) [Entitic mass] 30.8 pg 27.0-32.0 [facility] Work Phone: [phone] Nucleated RBC/100 WBC (Bld) [Ratio] 0 % 0-5 [facility] Work Phone: MCHC Auto (RBC) [Mass/Vol]on 05-03-2021 MCHC (RBC) [Mass/Vol] 33.0 g/dL 32-36 [facility] Work Phone: [phone] Platelets bldon 05-03-2021 Platelets (Bld) [#/Vol] 175 10*3/uL 150-450 [facility] Work Phone: [phone] Absolute lymphocyte counton 04-26-2021 Lymphocytes Auto (Unsp spec) [#/Vol] 1.68 10*3/uL 0.83-4.51 [facility] Work Phone: [phone] Basophil percentageon 2020 Eosinophils/100 WBC (Bld) 1.1 % 0-5 [facility] Work Phone: [phone] Neutrophils (Bld) [#/Vol] 4.5 10*3/uL 2.0-7.7 [facility] Work Phone: [phone] WBC (Bld) [#/Vol] 7.2 10*3/uL 4.4-11.0 [facility] Work Phone: [phone] Blood erythrocytes count (nu mber/volume)on 04-26-2021 RBC (Bld) [#/Vol] 4.32 10*6/uL 4.6-6.2 [facility] Work Phone: [phone] Blood hemoglobin measurement (mass/volume)on 04-26-2021 Hemoglobin (Bld) [Mass/Vol] 13.5 g/dL 13.0-16.5 [facility] Work Phone: [phone] Blood lymphocytes/100 leukoc yteson 04-26-2021 Lymphocytes/100 WBC (Bld) 23.5 % 19-41 [facility] Work Phone: Blood monocytes/100 leukocyt eson 04-26-2021 Monocytes/100 WBC (Bld) 11.0 % 0-10 [facility] Work Phone: Blood platelet mean volumeon 04-26-2021 Platelet mean volume (Bld) [Entitic vol] 11.0 fL 6.2-12.0 [facility] Work Phone: Determination of erythrocyte mean corpuscular volume (MCV)on 04-26-2021 MCV (RBC) [Entitic vol] 93.3 fL 80-94 [facility] Work Phone: Hematocrit Auto (Bld) [Volum e fraction]on 04-26-2021 Hematocrit (Bld) [Volume fraction] 40.3 % 40-54 [facility] Work Phone: Laboratory - Hematology and Cell countson 04-26-2021 Basophils/100 WBC (Unsp spec) 0.6 % 0-1 [facility] Work Phone: Erythrocyte distribution width (RBC) [Entitic vol] 45.8 fL 35.1-43.9 [facility] Work Phone: Erythrocyte distribution width (RBC) [Ratio] 13.2 % 11.6-14.6 [facility] Work Phone: Immature granulocytes/100 WBC (Bld) 0.600 % 0.0-0.9 [facility] Work Phone: [phone] Comment on above: IG% - Immature Granu locytes (promyelocytes, myelocytes and metamyelocytes) > 1% indicates that a LEFT SHIFT is Present. MCH (RBC) [Entitic mass] 31.3 pg 27.0-32.0 [facility] Work Phone: Neutrophils/100 WBC (Bld) 63.2 % 47-70 [facility] Work Phone: [phone] Nucleated RBC/100 WBC (Bld) [Ratio] 0 % 0-5 [facility] Work Phone: MCHC Auto (RBC) [Mass/Vol]on 04-26-2021 MCHC (RBC) [Mass/Vol] 33.5 g/dL 32-36 [facility] Work Phone: Platelets bldon 04-26-2021 Platelets (Bld) [#/Vol] 172 10*3/uL 150-450 [facility] Work Phone: Absolute lymphocyte counton 04-19-2021 Lymphocytes Auto (Unsp spec) [#/Vol] 1.31 10*3/uL 0.83-4.51 [facility] Work Phone: Basophil percentageon 2020 Eosinophils/100 WBC (Bld) 2.8 % 0-5 [facility] Work Phone: Neutrophils (Bld) [#/Vol] 3.0 10*3/uL 2.0-7.7 [facility] Work Phone: WBC (Bld) [#/Vol] 5.0 10*3/uL 4.4-11.0 [facility] Work Phone: Blood erythrocytes count (nu mber/volume)on 04-19-2021 RBC (Bld) [#/Vol] 4.26 10*6/uL 4.6-6.2 [facility] Work Phone: Blood hemoglobin measurement (mass/volume)on 04-19-2021 Hemoglobin (Bld) [Mass/Vol] 13.2 g/dL 13.0-16.5 [facility] Work Phone: [phone] Blood lymphocytes/100 leukoc yteson 04-19-2021 Lymphocytes/100 WBC (Bld) 26.1 % 19-41 [facility] Work Phone: [phone] Blood monocytes/100 leukocyt eson 04-19-2021 Monocytes/100 WBC (Bld) 10.0 % 0-10 [facility] Work Phone: Blood platelet mean volumeon 04-19-2021 Platelet mean volume (Bld) [Entitic vol] 10.9 fL 6.2-12.0 [facility] Work Phone: Determination of erythrocyte mean corpuscular volume (MCV)on 04-19-2021 MCV (RBC) [Entitic vol] 93.7 fL 80-94 [facility] Work Phone: Hematocrit Auto (Bld) [Volum e fraction]on 04-19-2021 Hematocrit (Bld) [Volume fraction] 39.9 % 40-54 [facility] Work Phone: Laboratory - Hematology and Cell countson 04-19-2021 Basophils/100 WBC (Unsp spec) 1.0 % 0-1 [facility] Work Phone: Erythrocyte distribution width (RBC) [Entitic vol] 46.7 fL 35.1-43.9 [facility] Work Phone: Erythrocyte distribution width (RBC) [Ratio] 13.7 % 11.6-14.6 [facility] Work Phone: Immature granulocytes/100 WBC (Bld) 0.400 % 0.0-0.9 [facility] Work Phone: Comment on above: IG% - Immature Granu locytes (promyelocytes, myelocytes and metamyelocytes) > 1% indicates that a LEFT SHIFT is Present. MCH (RBC) [Entitic mass] 31.0 pg 27.0-32.0 [facility] Work Phone: Neutrophils/100 WBC (Bld) 59.7 % 47-70 [facility] Work Phone: Nucleated RBC/100 WBC (Bld) [Ratio] 0 % 0-5 [facility] Work Phone: MCHC Auto (RBC) [Mass/Vol]on 04-19-2021 MCHC (RBC) [Mass/Vol] 33.1 g/dL 32-36 [facility] Work Phone: Platelets bldon 04-19-2021 Platelets (Bld) [#/Vol] 165 10*3/uL 150-450 [facility] Work Phone: Absolute lymphocyte counton 04-12-2021 Lymphocytes Auto (Unsp spec) [#/Vol] 1.41 10*3/uL 0.83-4.51 [facility] Work Phone: [phone] Basophil percentageon 2020 Bilirubin [Mass/Vol] 0.40 mg/dL 0.20-1.00 [facility] Work Phone: [phone] Comment on above: For patients on eltr ombopag therapy, use of [employer] [place] TBIL is not recommended. Eosinophils/100 WBC (Bld) 0.9 % 0-5 [facility] Work Phone: Neutrophils (Bld) [#/Vol] 3.4 10*3/uL 2.0-7.7 [facility] Work Phone: Protein [Mass/Vol] 5.7 g/dL 6.4-8.2 [facility] Work Phone: [phone] WBC (Bld) [#/Vol] 5.5 10*3/uL 4.4-11.0 [facility] Work Phone: Blood erythrocytes count (nu mber/volume)on 04-12-2021 RBC (Bld) [#/Vol] 4.09 10*6/uL 4.6-6.2 [facility] Work Phone: Blood hemoglobin measurement (mass/volume)on 04-12-2021 Hemoglobin (Bld) [Mass/Vol] 12.4 g/dL 13.0-16.5 [facility] Work Phone: Blood lymphocytes/100 leukoc yteson 04-12-2021 Lymphocytes/100 WBC (Bld) 25.9 % 19-41 [facility] Work Phone: [phone] Blood monocytes/100 leukocyt eson 04-12-2021 Monocytes/100 WBC (Bld) 9.2 % 0-10 [facility] Work Phone: Blood platelet mean volumeon 04-12-2021 Platelet mean volume (Bld) [Entitic vol] 11.1 fL 6.2-12.0 [facility] Work Phone: Determination of erythrocyte mean corpuscular volume (MCV)on 04-12-2021 MCV (RBC) [Entitic vol] 93.4 fL 80-94 [facility] Work Phone: Direct bilirubinon Bilirubin.direct [Mass/Vol] 0.08 mg/dL 0.00-0.30 [facility] Work Phone: Hematocrit Auto (Bld) [Volum e fraction]on 04-12-2021 Hematocrit (Bld) [Volume fraction] 38.2 % 40-54 [facility] Work Phone: Laboratory - Chemistry and C hemistry - challengeon 04-12-2021 ALP [Catalytic activity/Vol] 101 U/L 45-117 [facility] Work Phone: ALT [Catalytic activity/Vol] 30 U/L 16-61 [facility] Work Phone: Globulin (S) [Mass/Vol] 2.9 g/dL 2.2-4.2 [facility] Work Phone: Laboratory - Hematology and Cell countson 04-12-2021 Basophils/100 WBC (Unsp spec) 0.6 % 0-1 [facility] Work Phone: Erythrocyte distribution width (RBC) [Entitic vol] 46.7 fL 35.1-43.9 [facility] Work Phone: Erythrocyte distribution width (RBC) [Ratio] 13.7 % 11.6-14.6 [facility] Work Phone: Immature granulocytes/100 WBC (Bld) 0.400 % 0.0-0.9 [facility] Work Phone: Comment on above: IG% - Immature Granu locytes (promyelocytes, myelocytes and metamyelocytes) > 1% indicates that a LEFT SHIFT is Present. MCH (RBC) [Entitic mass] 30.3 pg 27.0-32.0 [facility] Work Phone: [phone] Neutrophils/100 WBC (Bld) 63.0 % 47-70 [facility] Work Phone: [phone] Nucleated RBC/100 WBC (Bld) [Ratio] 0 % 0-5 [facility] Work Phone: [phone] MCHC Auto (RBC) [Mass/Vol]on 04-12-2021 MCHC (RBC) [Mass/Vol] 32.5 g/dL 32-36 [facility] Work Phone: [phone] Platelets bldon 04-12-2021 Platelets (Bld) [#/Vol] 173 10*3/uL 150-450 [facility] Work Phone: Serum or plasma albumin gordy urement (mass/volume)on 04-12-2021 Albumin [Mass/Vol] 2.8 g/dL 3.2-5.0 [facility] Work Phone: Thin prep Papanicolaou smear with manual screeningon 04-12-2021 Thin prep Papanicolaou smear with manual screening 15 U/L 15-37 [facility] Work Phone: Absolute lymphocyte counton 04-07-2021 Lymphocytes Auto (Unsp spec) [#/Vol] 1.55 10*3/uL 0.83-4.51 [facility] Work Phone: Basophil percentageon 2020 Eosinophils/100 WBC (Bld) 0.7 % 0-5 [facility] Work Phone: [phone] Neutrophils (Bld) [#/Vol] 5.3 10*3/uL 2.0-7.7 [facility] Work Phone: [phone] WBC (Bld) [#/Vol] 8.1 10*3/uL 4.4-11.0 [facility] Work Phone: Blood erythrocytes count (nu mber/volume)on 04-07-2021 RBC (Bld) [#/Vol] 4.18 10*6/uL 4.6-6.2 [facility] Work Phone: Blood hemoglobin measurement (mass/volume)on 04-07-2021 Hemoglobin (Bld) [Mass/Vol] 12.9 g/dL 13.0-16.5 [facility] Work Phone: Blood lymphocytes/100 leukoc yteson 04-07-2021 Lymphocytes/100 WBC (Bld) 19.2 % 19-41 [facility] Work Phone: Blood monocytes/100 leukocyt eson 04-07-2021 Monocytes/100 WBC (Bld) 13.0 % 0-10 [facility] Work Phone: Blood platelet mean volumeon 04-07-2021 Platelet mean volume (Bld) [Entitic vol] 10.9 fL 6.2-12.0 [facility] Work Phone: Determination of erythrocyte mean corpuscular volume (MCV)on 04-07-2021 MCV (RBC) [Entitic vol] 92.6 fL 80-94 [facility] Work Phone: Hematocrit Auto (Bld) [Volum e fraction]on 04-07-2021 Hematocrit (Bld) [Volume fraction] 38.7 % 40-54 [facility] Work Phone: Laboratory - Hematology and Cell countson 04-07-2021 Basophils/100 WBC (Unsp spec) 0.6 % 0-1 [facility] Work Phone: Erythrocyte distribution width (RBC) [Entitic vol] 45.8 fL 35.1-43.9 [facility] Work Phone: Erythrocyte distribution width (RBC) [Ratio] 13.5 % 11.6-14.6 [facility] Work Phone: Immature granulocytes/100 WBC (Bld) 0.500 % 0.0-0.9 [facility] Work Phone: Comment on above: IG% - Immature Granu locytes (promyelocytes, myelocytes and metamyelocytes) > 1% indicates that a LEFT SHIFT is Present. MCH (RBC) [Entitic mass] 30.9 pg 27.0-32.0 [facility] Work Phone: Neutrophils/100 WBC (Bld) 66.0 % 47-70 [facility] Work Phone: [phone] Nucleated RBC/100 WBC (Bld) [Ratio] 0 % 0-5 [facility] Work Phone: MCHC Auto (RBC) [Mass/Vol]on 04-07-2021 MCHC (RBC) [Mass/Vol] 33.3 g/dL 32-36 [facility] Work Phone: Platelets bldon 04-07-2021 Platelets (Bld) [#/Vol] 210 10*3/uL 150-450 [facility] Work Phone: CULTURE BLOODon 03-25-2021 Microscopic examination of blood, culture CULTURE BLOOD --> Status: F No growth at 5 days. Normal [facility] Comment on above: Performed By: #### C /BLD ####[id number] [place] [address] CULTURE BLOOD (Two)on 2020 Microscopic examination of blood, culture CULTURE BLOOD (Two) --> Status: F No growth at 5 days. Normal [facility] Comment on above: Performed By: #### C /BLT ####[facility] [place] [address] Basic Metabolic Panelon 11-2 Calcium [Mass/Vol] 8.8 mg/dL Normal 8.4-10.4 [facility] Comment on above: Performed By: #### H EMDF, BMP3 #### [facility] [employer] [address] [place] [address] Glucose [Mass/Vol] 103 mg/dL High 70-100 [facility] Comment on above: Performed By: #### H EMDF BMP3 #### [facility] [address] [place] [address] Anion gap [Moles/Vol] 5 mmol/L Normal 3-13 [facility] Comment on above: Performed By: #### H ALCIRAF, BMP3 #### [facility] [address] [place] [address] CO2 [Moles/Vol] 26 mmol/L Normal 22-30 [facility] Comment on above: Performed By: #### H EMDF BMP3 #### [facility] [address] [place] [address] Creatinine [Mass/Vol] 0.49 mg/dL Low 0.52-1.25 [facility] Comment on above: Performed By: #### H ALCIRAF BMP3 #### [facility] [address] [place] [address] eGFR OTHER > 90.0 Normal >60 [facility] Comment on above: Result Comment: KDIG [...] Performed By: #### H ALCIRAF BMP3 #### [facility] [address] [place] [address] GFR/1.73 sq M.predicted among blacks MDRD (S/P/Bld) [Vol rate/Area] mL/min/{1.73_m2} Normal >60 [facility] Comment on above: Performed By: #### H ALCIRAF BMP3 #### [facility] [address] [place] [address] Urea nitrogen [Mass/Vol] 30 mg/dL High 7-17 [facility] Comment on above: Performed By: #### H EMDF, BMP3 #### [facility] [address] [place] [address] Chloride [Moles/Vol] 112 mmol/L High 98-107 [facility] Comment on above: Performed By: #### H ALCIRAF, BMP3 #### [facility] [address] [place] [address] Potassium [Moles/Vol] 4.1 mmol/L Normal 3.5-5.1 [facility] Comment on above: Performed By: #### H ALCIRAF, BMP3 #### [facility] [address] [place] [address] Sodium [Moles/Vol] 142 mmol/L Normal 135-145 [facility] Comment on above: Performed By: #### H ALCIRAF BMP3 #### [facility] [address] [place] [address] Anion gap [Moles/Vol] 5 mmol/L 3 - 13 mmol/L [facility] Work Phone: Calcium [Mass/Vol] 8.8 mg/dL 8.4 - 10. 4 mg/dL [facility] Work Phone: Chloride [Moles/Vol] 112 mmol/L High 98 - 10 7 mmol/L [facility] Work Phone: CO2 [Moles/Vol] 26 mmol/L 22 - 30 mmol/L [facility] Work Phone: Creatinine [Mass/Vol] 0.49 mg/dL Low 0.52 - 1.25 mg/dL [facility] Work Phone: EGFR IF NonAfrican R[place]an >90.0 >60 mL/min [facility] Work Phone: Comment on above: KDIGO guidelines [...] MDRD (S/P/Bld) [Vol rate/Area] mL/min/{1.73_m2} >60 mL/min [facility] Work Phone: Glucose [Mass/Vol] 103 mg/dL High 70 - 100 mg/dL [facility] Work Phone: Interpretation and review of laboratory results Abnormal [facility] Work Phone: Potassium [Moles/Vol] 4.1 mmol/L 3.5 - 5.1 mmol/L [facility] Work Phone: Sodium [Moles/Vol] 142 mmol/L 135 - 145 mmol/L [facility] Work Phone: Urea nitrogen (BldV) [Mass/Vol] 30 mg/dL High 7 - 17 mg/dL [facility] Work Phone: Test Performed by [facility], [address] [place], [place] [id number] [place] [address] LAB [facility] Work Phone: CBC Auto Differentialon 11-2 Hematocrit (Bld) [Volume fraction] 35.0 % Low 40.0 - 52.0 % [facility] Work Phone: Hemoglobin.gastrointest inal spec 1 Ql (Stl) 11.7 g/dL Low 13.0 - 18.0 g/dL [facility] Work Phone: Interpretation and review of laboratory results Abnormal [facility] Work Phone: MCH (RBC) [Entitic mass] 31.0 pg 26.0 - 34.0 pg [employer] Work Phone: MCHC (RBC) [Mass/Vol] 33.4 % 32.0 - 36.0 % [employer] Work Phone: MCV (RBC) [Entitic vol] 92.7 fL 80.0 - 98.0 fL [employer] Work Phone: Platelet distribution width (Bld) [Ratio] 13.4 % 11.5 - 14.5 % [employer] Work Phone: Platelet mean volume (Bld) [Entitic vol] 8.6 fL 7.4 - 10.4 fL [employer] Work Phone: Platelets (Bld) [#/Vol] 236 10*3/uL 140 - 440 10*3/uL [employer] Work Phone: RBC (Bld) [#/Vol] 3.77 10*6/uL Low 4.40 - 5.9 0 10*6/uL [employer] Work Phone: WBC (Bld) [#/Vol] 12.8 10*3/uL High 3.6 - 10.7 10*3/uL [employer] Work Phone: [facility], [address] [place], [place] [id number] [place] [address] LAB [facility] Work Phone: Glucose,Bedsideon 03-24-2021 Glucose [Mass/Vol] 93 mg/dL Normal 70-100 [facility] Comment on above: Result Comment: Test performed by glucose meter. Results may be 10%-15% lower than serum/plasma values. (CLIA ID [id number]) Performed By: #### H EMD, BMP3 #### [facility] [address] [place] [address] Glucose [Mass/Vol] 166 mg/dL High 70-100 [facility] Comment on above: Result Comment: Test performed by glucose meter. Results may be 10%-15% lower than serum/plasma values. (CLIA ID [id number]) Performed By: #### B GLU ####[facility] [place] [address] Hemogram w/ Autodiffon 03-24 Erythrocyte distribution width (RBC) [Ratio] 13.4 % Normal 11.5-14.5 [facility] Comment on above: Performed By: #### H EMDF, BMP3 #### [facility] [address] [place] [address] Hematocrit (Bld) [Volume fraction] 35.0 % Low 40.0-52.0 [facility] Comment on above: Performed By: #### H EMDF, BMP3 #### [facility] [address] [place] [address] Hemoglobin (Bld) [Mass/Vol] 11.7 g/dL Low 13.0-18.0 [facility] Comment on above: Performed By: #### H EMDF, BMP3 #### [facility] [address] [place] [address] MCH (RBC) [Entitic mass] 31.0 pg Normal 26.0-34.0 [facility] Comment on above: Performed By: #### H EMDF, BMP3 #### [facility] [address] [place] [address] MCHC 33.4 % Normal 32.0-36.0 [facility] Comment on above: Performed By: #### H EMDF, BMP3 #### [facility] [address] [place] [address] MCV (RBC) [Entitic vol] 92.7 fL Normal 80.0-98.0 [facility] Comment on above: Performed By: #### H EMDF, BMP3 #### [facility] [address] [place] [address] Platelet mean volume (Bld) [Entitic vol] 8.6 fL Normal 7.4-10.4 [facility] Comment on above: Performed By: #### H EMDF, BMP3 #### [facility] [address] [place] [address] Platelets (Bld) [#/Vol] 236 10*3/uL Normal 140-440 [facility] Comment on above: Performed By: #### H EMDF, BMP3 #### [facility] [address] [place] [address] RBC (Bld) [#/Vol] 3.77 10*6/uL Low 4.40-5.90 [facility] Comment on above: Performed By: #### H EMDF, BMP3 #### [facility] [address] [place] [address] WBC (Bld) [#/Vol] 12.8 10*3/uL High 3.6-10.7 [facility] Comment on above: Performed By: #### H EMDF, BMP3 #### [place] [address] [place] [address] Manual Diffon 03-24-2021 Abs Lymph Cnt 1.7 10*3/uL Normal 1.1-4.5 [facility] Comment on above: Performed By: #### H EMDF, BMP3 #### [place] [address] [place] [address] Abs Monocyte Cnt 0.8 10*3/uL Normal 0.2-1.1 [facility] Comment on above: Performed By: #### H EMDF, BMP3 #### [facility] [address] [place] [address] Abs Neutrophile Cnt 10.1 10*3/uL High 2.2-8.2 [facility] Comment on above: Performed By: #### H EMDF, BMP3 #### [facility] [address] [place] [address] Anisocytosis Slight Normal [facility] Comment on above: Performed By: #### H EMDF, BMP3 #### [place] [address] [place] [address] Atypical Lymphocytes 2 % Abnormal <1 [facility] Comment on above: Performed By: #### H EMDF, BMP3 #### [place] [address] [place] [address] [place] Cells Slight Normal [facility] Comment on above: Performed By: #### H EMDF, BMP3 #### [place] [address] [place] [address] Lymphocytes 11 % Low 20-40 [facility] Comment on above: Performed By: #### H EMDF, BMP3 #### [facility] [address] [place] [address] Monocytes 6 % Normal 2-10 [facility] Comment on above: Performed By: #### H EMDF, BMP3 #### [facility] [address] [place] [address] Myelocytes 2 % Abnormal <1 [facility] Comment on above: Performed By: #### H EMDF, BMP3 #### [facility] [address] [place] [address] Ovalocytes Slight Normal [facility] Comment on above: Performed By: #### H EMDF, BMP3 #### [facility] [address] [place] [address] Poikilocytosis Slight Normal [facility] Comment on above: Performed By: #### H EMDF, BMP3 #### [facility] [address] [place] [address] Polychromasia Slight Normal [facility] Comment on above: Performed By: #### H EMDF, BMP3 #### [facility] [address] [place] [address] RBC Morphology ABNORMAL Normal [facility] Comment on above: Performed By: #### H EMDF, BMP3 #### [facility] [address] [place] [address] Seg Neutrophils 79 % Normal 40-80 [facility] Comment on above: Performed By: #### H EMDF, BMP3 #### [facility] [address] [place] [address] Tear Drop Forms Slight Normal [facility] Comment on above: Performed By: #### H EMDF, BMP3 #### [facility] [address] [place] [address] Abs Baso Cnt 0.0 10*3/uL Normal 0.0-0.2 [facility] Comment on above: Performed By: #### H EMDF, BMP3 #### [facility] [address] [place] [address] Abs Eosin Cnt 0.0 10*3/uL Normal 0.0-0.5 [facility] Comment on above: Performed By: #### H EMDF, BMP3 #### [facility] [address] [place] [address] Bands 0 % Normal 0-3 [facility] Comment on above: Performed By: #### H EMDF, BMP3 #### [facility] [address] [place] [address] Basophils 0 % Normal 0-2 [facility] Comment on above: Performed By: #### H EMDF, BMP3 #### [facility] [address] [place] [address] Cells counted 100 Normal [facility] Comment on above: Performed By: #### H EMDF, BMP3 #### [facility] [address] [place] [address] Eosinophils 0 % Low 1-6 [facility] Comment on above: Performed By: #### H EMDF, BMP3 #### [facility] [address] [place] [address] Manual Differentialon 2020 Absolute Baso # 0.0 10*3/uL 0.0 - 0.2 10*3/uL [employer] Work Phone: Absolute Eos # 0.0 10*3/uL 0.0 - 0.5 10*3/uL [facility] Work Phone: Absolute Lymph # 1.7 10*3/uL 1.1 - 4.5 10*3/uL [facility] Work Phone: Absolute [place] # 0.8 10*3/uL 0.2 - 1.1 10*3/uL [...] Work Phone: Ovalocytes Slight [facility] Work Phone: [phone] Poikilocytes Slight [facility] Work Phone: [phone] Polychromasia Slight [facility] Work Phone: RBC (Bld) [#/Vol] ABNORMAL [facility] Work Phone: Seg Neutrophils 79 % 40 - 80 % [facility] Work Phone: Tear Drop Cells Slight [facility] Work Phone: TOTAL CELLS COUNTED 100 [facility] Work Phone: Test Per[facility], [address] [place], [place] [id number] [place] [address] LAB [facility] Work Phone: POCT Glucoseon 03-24-2021 Glucose [Mass/Vol] 93 mg/dL 70 - 100 mg/dL [facility] Work Phone: Comment on above: Test performed by gl ucose meter. Results may be 10%-15% lower than serum/plasma values. (CLIA ID [id number]) Test Performed by [employer], [address] [place], [place] [id number] [place] [address] LAB [facility] Work Phone: Basic Metabolic Panelon 11-2 Calcium [Mass/Vol] 8.8 mg/dL Normal 8.4-10.4 [facility] Comment on above: Performed By: #### H MAYKEL BMP3 #### [facility] [address] [place] [address] Glucose [Mass/Vol] 143 mg/dL High 70-100 [facility] Comment on above: Performed By: #### H MAYKEL BMP3 #### [facility] [address] [place] [address] Anion gap [Moles/Vol] 8 mmol/L Normal 3-13 [facility] Comment on above: Performed By: #### H MAYKEL BMP3 #### [facility] [address] [place] [address] CO2 [Moles/Vol] 24 mmol/L Normal 22-30 [facility] Comment on above: Performed By: #### H MAYKEL BMP3 #### [facility] [address] [place] [address] Creatinine [Mass/Vol] 0.47 mg/dL Low 0.52-1.25 [facility] Comment on above: Performed By: #### H MAYKEL BMP3 #### [facility] [address] [place] [address] eGFR OTHER > 90.0 Normal >60 [facility] Comment on above: Result Comment: KDIG [...] Performed By: #### H MAYKEL BMP3 #### [facility] [address] [place] [address] GFR/1.73 sq M.predicted among blacks MDRD (S/P/Bld) [Vol rate/Area] mL/min/{1.73_m2} Normal >60 [facility] Comment on above: Performed By: #### H EMDF, BMP3 #### [facility] [address] [place] [address] Urea nitrogen [Mass/Vol] 32 mg/dL High 7-17 [facility] Comment on above: Performed By: #### H EMDF, BMP3 #### [facility] [address] [place] [address] Chloride [Moles/Vol] 110 mmol/L High 98-107 [facility] Comment on above: Performed By: #### H EMDF, BMP3 #### [facility] [address] [place] [address] Potassium [Moles/Vol] 3.9 mmol/L Normal 3.5-5.1 [facility] Comment on above: Performed By: #### H EMDF, BMP3 #### [facility] [address] [place] [address] Sodium [Moles/Vol] 142 mmol/L Normal 135-145 [facility] Comment on above: Performed By: #### H EMDF, BMP3 #### [facility] [address] [place] [address] Anion gap [Moles/Vol] 8 mmol/L 3 - 13 mmol/L [facility] Work Phone: Calcium [Mass/Vol] 8.8 mg/dL 8.4 - 10. 4 mg/dL [facility] Work Phone: Chloride [Moles/Vol] 110 mmol/L High 98 - 10 7 mmol/L [facility] Work Phone: CO2 [Moles/Vol] 24 mmol/L 22 - 30 mmol/L [facility] Work Phone: Creatinine [Mass/Vol] 0.47 mg/dL Low 0.52 - 1.25 mg/dL [facility] Work Phone: EGFR IF NonAfrican [place]andan >90.0 >60 mL/min [employer] Work Phone: Comment on above: KDIGO guidelines [...] MDRD (S/P/Bld) [Vol rate/Area] mL/min/{1.73_m2} >60 mL/min [employer] Work Phone: Glucose [Mass/Vol] 143 mg/dL High 70 - 100 mg/dL [employer] Work Phone: Interpretation and review of laboratory results Abnormal [employer] Work Phone: Potassium [Moles/Vol] 3.9 mmol/L 3.5 - 5.1 mmol/L [employer] Work Phone: Sodium [Moles/Vol] 142 mmol/L 135 - 145 mmol/L [employer] Work Phone: Urea nitrogen (BldV) [Mass/Vol] 32 mg/dL High 7 - 17 mg/dL [employer] Work Phone: Test [facility], [address] [place], [place] [address] [facility] LAB [employer] Work Phone: CBC Auto Differentialon 11-2 Absolute Baso # 0.0 10*3/uL 0.0 - 0.2 10*3/uL [employer] Work Phone: Absolute Neut # 13.5 10*3/uL High 1.8 - 7.0 10*3/uL [facility] Work Phone: Basophils/100 WBC (Bld) 0.3 % 0.0 - 2.0 % [facility] Work Phone: Eosinophils (Bld) [#/Vol] 0.0 10*3/uL 0.0 - 0.5 10*3/uL [facility] Work Phone: Eosinophils/100 WBC (Bld) 0.0 % Low 1.0 - 6.0 % [facility] Work Phone: Granulocytes/100 WBC (Bld) 89.5 % High 40.0 - 80.0 % [employer] Work Phone: Hematocrit (Bld) [Volume fraction] 36.5 % Low 40.0 - 52.0 % [employer] Work Phone: Hemoglobin.gastrointest inal spec 1 Ql (Stl) 12.4 g/dL Low 13.0 - 18.0 g/dL [facility] Work Phone: Interpretation and review of laboratory results Abnormal [employer] Work Phone: Lymphocytes (Bld) [#/Vol] 0.7 10*3/uL Low 1.0 - 4.3 10*3/uL [employer] Work Phone: Lymphocytes/100 WBC (Bld) 4.8 % Low 20.0 - 40.0 % [employer] Work Phone: MCH (RBC) [Entitic mass] 31.3 pg 26.0 - 34.0 pg [facility] Work Phone: MCHC (RBC) [Mass/Vol] 34.1 % 32.0 - 36.0 % [employer] Work Phone: MCV (RBC) [Entitic vol] 92.0 fL 80.0 - 98.0 fL [facility] Work Phone: Monocytes (Bld) [#/Vol] 0.8 10*3/uL 0.0 - 0.8 10*3/uL [employer] Work Phone: Monocytes/100 WBC (Bld) 5.4 % 2.0 - 10.0 % [employer] Work Phone: Platelet distribution width (Bld) [Ratio] 13.2 % 11.5 - 14.5 % [employer] Work Phone: Platelet mean volume (Bld) [Entitic vol] 9.0 fL 7.4 - 10.4 fL [employer] Work Phone: Platelets (Bld) [#/Vol] 211 10*3/uL 140 - 440 10*3/uL [employer] Work Phone: RBC (Bld) [#/Vol] 3.96 10*6/uL Low 4.40 - 5.9 0 10*6/uL [employer] Work Phone: WBC (Bld) [#/Vol] 15.1 10*3/uL High 3.6 - 10.7 10*3/uL [employer] Work Phone: Test Performed by [employer], [address], [place], [place] [id number] [place] [address] LAB [facility] Work Phone: Glucose,Bedsideon 03-23-2021 Glucose [Mass/Vol] 122 mg/dL High 70-100 [facility] Comment on above: Result Comment: Test performed by glucose meter. Results may be 10%-15% lower than serum/plasma values. (CLIA ID [id number]) Performed By: #### H EMDF, BMP3 #### [employer] [address] [place] [address] Glucose [Mass/Vol] 129 mg/dL High 70-100 [facility] Comment on above: Test performed by gl ucose meter. Results may be 10%-15% lower than serum/plasma values. (CLIA ID [id number]) Result Comment: Test performed by glucose meter. Results may be 10%-15% lower than serum/plasma values. (CLIA ID [id number]) Performed By: #### B GLU ####[facility] [place] [address] Glucose [Mass/Vol] 136 mg/dL High 70-100 [facility] Comment on above: Result Comment: Test performed by glucose meter. Results may be 10%-15% lower than serum/plasma values. (CLIA ID [id number]) Performed By: #### B GLU #### [facility] [address] [place] [address] Hemogram w/ Autodiffon 03-23 Abs Baso Cnt 0.0 10*3/uL Normal 0.0-0.2 [facility] Comment on above: Performed By: #### H MAYKEL BMP3 #### [facility] [address] [place] [address] Abs Neutrophile Cnt 13.5 10*3/uL High 1.8-7.0 [facility] Comment on above: Performed By: #### H MAYKEL BMP3 #### [facility] [address] [place] [address] Basophils/100 WBC (Bld) 0.3 % Normal 0.0-2.0 [facility] Comment on above: Performed By: #### H MAYKEL BMP3 #### [facility] [address] [place] [address] Eosinophils (Bld) [#/Vol] 0.0 10*3/uL Normal 0.0-0.5 [facility] Comment on above: Performed By: #### H MAYKEL BMP3 #### [facility] [address] [place] [address] Eosinophils/100 WBC (Bld) 0.0 % Low 1.0-6.0 [facility] Comment on above: Performed By: #### H MAYKEL BMP3 #### [facility] [address] [place] [address] Erythrocyte distribution width (RBC) [Ratio] 13.2 % Normal 11.5-14.5 [facility] Comment on above: Performed By: #### H MAYKEL BMP3 #### [facility] [address] [place] [address] Granulocytes/100 WBC (Bld) 89.5 % High 40.0-80.0 [facility] Comment on above: Performed By: #### H EMDMaurice BMP3 #### [facility] [address] [place] [address] Hematocrit (Bld) [Volume fraction] 36.5 % Low 40.0-52.0 [facility] Comment on above: Performed By: #### H EMDMaurice BMP3 #### [facility] [address] [place] [address] Hemoglobin (Bld) [Mass/Vol] 12.4 g/dL Low 13.0-18.0 [facility] Comment on above: Performed By: #### H MAYKEL BMP3 #### [facility] [address] [place] [address] Lymphocytes (Bld) [#/Vol] 0.7 10*3/uL Low 1.0-4.3 [facility] Comment on above: Performed By: #### H EMDF BMP3 #### [facility] [address] [place] [address] Lymphocytes/100 WBC (Bld) 4.8 % Low 20.0-40.0 [facility] Comment on above: Performed By: #### H EMDMaurice BMP3 #### [facility] [address] [place] [address] MCH (RBC) [Entitic mass] 31.3 pg Normal 26.0-34.0 [facility] Comment on above: Performed By: #### H EMDF, BMP3 #### [facility] [address] [place] [address] MCHC 34.1 % Normal 32.0-36.0 [facility] Comment on above: Performed By: #### H EMDF, BMP3 #### [facility] [address] [place] [address] MCV (RBC) [Entitic vol] 92.0 fL Normal 80.0-98.0 [facility] Comment on above: Performed By: #### H EMDF, BMP3 #### [facility] [address] [place] [address] Monocytes (Bld) [#/Vol] 0.8 10*3/uL Normal 0.0-0.8 [facility] Comment on above: Performed By: #### H MAYKEL BMP3 #### [facility] [address] [place] [address] Monocytes/100 WBC (Bld) 5.4 % Normal 2.0-10.0 [facility] Comment on above: Performed By: #### H MAYKEL BMP3 #### [facility] [address] [place] [address] Platelet mean volume (Bld) [Entitic vol] 9.0 fL Normal 7.4-10.4 [facility] Comment on above: Performed By: #### H MAYKEL BMP3 #### [facility] [address] [place] [address] Platelets (Bld) [#/Vol] 211 10*3/uL Normal 140-440 [facility] Comment on above: Performed By: #### H MAYKEL BMP3 #### [facility] [address] [place] [address] RBC (Bld) [#/Vol] 3.96 10*6/uL Low 4.40-5.90 [facility] Comment on above: Performed By: #### H MAYKEL BMP3 #### [facility] [address] [place] [address] WBC (Bld) [#/Vol] 15.1 10*3/uL High 3.6-10.7 [facility] Comment on above: Performed By: #### H MAYKEL BMP3 #### [facility] [address] [place] [address] No Panel Informationon 03-23 Interpretation and review of laboratory results Abnormal [facility] Work Phone: Test Performed by [facility], [address] [place] [address] [facility] LAB [facility] Work Phone: POCT Glucoseon 03-23-2021 Glucose [Mass/Vol] 166 mg/dL High 70 - 100 mg/dL [facility] Comment on above: Test performed by gl ucose meter. Results may be 10%-15% lower than serum/plasma values. (CLIA ID [id number]) Interpretation and review of laboratory results Abnormal [facility] Test Performed by [facility], [address] LAB [facility] Glucose [Mass/Vol] 122 mg/dL High 70 - 100 mg/dL [facility] Work Phone: Comment on above: Test performed by gl ucose meter. Results may be 10%-15% lower than serum/plasma values. (CLIA ID [id number]) Glucose [Mass/Vol] 136 mg/dL High 70 - 100 mg/dL [facility] Comment on above: Test performed by gl ucose meter. Results may be 10%-15% lower than serum/plasma values. (CLIA ID [id number]) Interpretation and review of laboratory results Abnormal [facility] Test [facility], [address] LAB [facility] CBC Auto Differentialon 03-02 [...] 13.3 10*3/uL High 3.6 - 10.7 10*3/uL [facility] Test Performed by [facility], [address] [place], [place] [address] [facility] Glucose,Bedsideon 03-22-2021 Glucose [Mass/Vol] 134 mg/dL High 70-100 [facility] Comment on above: Result Comment: Test performed by glucose meter. Results may be 10%-15% lower than serum/plasma values. (CLIA ID [id number]) Performed By: #### H EMDF, BMP3 #### [facility] [address] [place] [address] Glucose [Mass/Vol] 190 mg/dL High 70-100 [facility] Comment on above: Result Comment: Test performed by glucose meter. Results may be 10%-15% lower than serum/plasma values. (CLIA ID [id number]) Performed By: #### B GLU #### [facility] [address] [place] [address] Glucose [Mass/Vol] 200 mg/dL High 70-100 [facility] Comment on above: Result Comment: Test performed by glucose meter. Results may be 10%-15% lower than serum/plasma values. (CLIA ID [id number]) Performed By: #### B GLU #### [facility] [address] [place] [address] Glucose [Mass/Vol] 181 mg/dL High 70-100 [facility] Comment on above: Result Comment: Test performed by glucose meter. Results may be 10%-15% lower than serum/plasma values. (CLIA ID [id number]) Performed By: #### B GLU #### [facility] [address] [place] [address] Glucose [Mass/Vol] 186 mg/dL High 70-100 [facility] Comment on above: Result Comment: Test performed by glucose meter. Results may be 10%-15% lower than serum/plasma values. (CLIA ID [id number]) Performed By: #### B GLU #### [facility] [address] [place] [address] Hemoglobin A1Con 03-22-2021 Glucose [Mass/Vol] 108 mg/dL Normal [facility] Comment on above: Performed By: #### B GLU #### [facility] [address] [place] [address] HbA1c (Bld) [Mass fraction] 5.4 % Normal [facility] Comment on above: Result Comment: Norm al less than 5.7% Prediabetes 5.7% to 6.4% Diabetes 6.5% or higher --HgbA1C levels may not be accurate in patients who have renal disease, received recent blood transfusions, are anemic, or who have dyshemoglobinemia. Performed By: #### B GLU #### [facility] [address] [place] [address] HbA1c (Bld) [Mass fraction] 5.4 % [facility] Comment on above: Normal less than 5.7 % Prediabetes 5.7% to 6.4% Diabetes 6.5% or higher --HgbA1C levels may not be accurate in patients who have renal disease, received recent blood transfusions, are anemic, or who have dyshemoglobinemia. Magnesium [Mass/Vol] 108 mg/dL [facility] Test Performed by [facility], [address] [place] [address] [facility] Hemogram w/ Autodiffon 03-22 Abs Baso Cnt 0.0 10*3/uL Normal 0.0-0.2 [facility] Comment on above: Performed By: #### B GLU #### [facility] [address] [place] [address] Abs Neutrophile Cnt 12.3 10*3/uL High 1.8-7.0 [facility] Comment on above: Performed By: #### B GLU #### [facility] [address] [place] [address] Basophils/100 WBC (Bld) 0.2 % Normal 0.0-2.0 [facility] Comment on above: Performed By: #### B GLU #### [facility] [address] [place] [address] Eosinophils (Bld) [#/Vol] 0.0 10*3/uL Normal 0.0-0.5 [facility] Comment on above: Performed By: #### B GLU #### [facility] [address] [place] [address] Eosinophils/100 WBC (Bld) 0.0 % Low 1.0-6.0 [facility] Comment on above: Performed By: #### B GLU #### [facility] [address] [place] [address] Erythrocyte distribution width (RBC) [Ratio] 12.8 % Normal 11.5-14.5 [facility] Comment on above: Performed By: #### B GLU #### [facility] [address] [place] [address] Granulocytes/100 WBC (Bld) 92.7 % High 40.0-80.0 [facility] Comment on above: Performed By: #### B GLU #### [facility] [address] [place] [address] Hematocrit (Bld) [Volume fraction] 35.9 % Low 40.0-52.0 [facility] Comment on above: Performed By: #### B GLU #### [facility] [address] [place] [address] Hemoglobin (Bld) [Mass/Vol] 12.4 g/dL Low 13.0-18.0 [facility] Comment on above: Performed By: #### B GLU #### [facility] [address] [place] [address] Lymphocytes (Bld) [#/Vol] 0.5 10*3/uL Low 1.0-4.3 [facility] Comment on above: Performed By: #### B GLU #### [facility] [address] [place] [address] Lymphocytes/100 WBC (Bld) 3.6 % Low 20.0-40.0 [facility] Comment on above: Performed By: #### B GLU #### [facility] [address] [place] [address] MCH (RBC) [Entitic mass] 31.6 pg Normal 26.0-34.0 [facility] Comment on above: Performed By: #### B GLU #### [facility] [address] [place] [address] MCHC 34.6 % Normal 32.0-36.0 [facility] Comment on above: Performed By: #### B GLU #### [facility] [address] [place] [address] MCV (RBC) [Entitic vol] 91.2 fL Normal 80.0-98.0 [facility] Comment on above: Performed By: #### B GLU #### [facility] [address] [place] [address] Monocytes (Bld) [#/Vol] 0.5 10*3/uL Normal 0.0-0.8 [facility] Comment on above: Performed By: #### B GLU #### [facility] [address] [place] [address] Monocytes/100 WBC (Bld) 3.5 % Normal 2.0-10.0 [facility] Comment on above: Performed By: #### B GLU #### [facility] [address] [place] [address] Platelet mean volume (Bld) [Entitic vol] 9.5 fL Normal 7.4-10.4 [facility] Comment on above: Performed By: #### B GLU #### [facility] [address] [place] [address] Platelets (Bld) [#/Vol] 158 10*3/uL Normal 140-440 [facility] Comment on above: Performed By: #### B GLU #### [facility] [address] [place] [address] RBC (Bld) [#/Vol] 3.93 10*6/uL Low 4.40-5.90 [facility] Comment on above: Performed By: #### B GLU #### [facility] [address] [place] [address] WBC (Bld) [#/Vol] 13.3 10*3/uL High 3.6-10.7 [facility] Comment on above: Performed By: #### B GLU #### [facility] [address] [place] [address] MRSA by PCRon 03-22-2021 Staph Aureus Sc No S. aureus detected. Negative nasal MRSA PCR has a high negative predictive value for MRSA pneumonia. Consider stopping vancomycin if no other clinical indication. Contact Antimicrobial Stewardship for further recommendations. The analytical performance characteristics of this assay have been determined by [employer] in accordance with CLIA regulations. The modifications have not been cleared or approved by the U. S. Food and Drug Administration; however, the FDA has determined that such clearance or approval is not necessary. [facility], [address] [place] [address] [facility] POCT GlucoseOrdered By: Same er Morgan on 03-22-2021 Glucose [Mass/Vol] 134 mg/dL High 70 - 100 mg/dL [employer] Work Phone: Comment on above: Test performed by [employer] ucose meter. Results may be 10%-15% lower than serum/plasma values. (CLIA ID [id number]) Interpretation and review of laboratory results Abnormal [facility] Work Phone: [facility] Work Phone: POCT Glucoseon 03-22-2021 Test Performed by [facility], [address] [place], [address] LAB Glucose [Mass/Vol] 190 mg/dL High 70 - 100 mg/dL [facility] Comment on above: Test performed by gl ucose meter. Results may be 10%-15% lower than serum/plasma values. (CLIA ID [id number]) Interpretation and review of laboratory results Abnormal [facility] Test Performed by [facility], [address] [place], [address] LAB [facility] Glucose [Mass/Vol] 200 mg/dL High 70 - 100 mg/dL [facility] Comment on above: Test performed by gl ucose meter. Results may be 10%-15% lower than serum/plasma values. (CLIA ID [id number]) Interpretation and review of laboratory results Abnormal [facility] Test Performed by [facility], [address] [place], [address] LAB [facility] Glucose [Mass/Vol] 181 mg/dL High 70 - 100 mg/dL [facility] Comment on above: Test performed by gl ucose meter. Results may be 10%-15% lower than serum/plasma values. (CLIA ID [id number]) Interpretation and review of laboratory results Abnormal [facility] Test Performed by [facility], [address] [place], [address] LAB [facility] Glucose [Mass/Vol] 186 mg/dL High 70 - 100 mg/dL [facility] Comment on above: Test performed by gl ucose meter. Results may be 10%-15% lower than serum/plasma values. (CLIA ID [id number]) Interpretation and review of laboratory results Abnormal [facility] Test Performed by [facility], [address] [place], [address] LAB [facility] Procalcitoninon 03-22-2021 Procalcitonin 0.09 ng/mL Normal 0.00-0.09 [facility] Comment on above: Performed By: #### H EMDF, BMP3 #### [facility] [employer] [facility] [address] [place] [address] Interpretation See Below [facility] Comment on above: PCT <0.50 = Low risk of severe sepsis and/or septic shock. PCT >2.00 = High risk of severe sepsis and/or septic shock. Procalcitonin 0.09 ng/mL 0.00 - 0.09 ng/mL [facility] Test Performed by [facility] [employer], [address] [place] [address] [facility] Staph Aureus Complete Nasalo n 03-22-2021 Staph Aureus Complete Nasal Staph Screen --> Status: F No S. aureus detected. Negative nasal MRSA PCR has a high negative predictive value for MRSA pneumonia. Consider stopping vancomycin if no other clinical indication. Contact Antimicrobial Stewardship for further recommendations. The analytical performance characteristics of this assay have been determined by [employer] in accordance with CLIA regulations. The modifications [...] of this assay have been determined by [employer] in accordance with CLIA regulations. The modifications have not been cleared or approved by the U. S. Food and Drug Administration; however, the FDA has determined that such clearance or approval is not necessary. Normal [facility] [employer] Comment on above: Performed By: #### S APCR ####[facility] [employer] [address] [place] [address] Vancomycin Troughon 03-22-20 21 Vancomycin Trough 8.1 ug/mL Low 15.0-20.0 [facility] Comment on above: Result Comment: . Performed By: #### B GLU #### [facility] [address] [place] [address] Vancomycin, Troughon 021 Interpretation and review of laboratory results Abnormal [facility] Vancomycin Tr 8.1 ug/mL Low 15.0 - 20.0 ug/mL [facility] Comment on above: . Test Performed by [facility] [employer], [address] [place], [place] [address] [facility] Basic Metabolic Panelon 11-2 Anion gap [Moles/Vol] 7 mmol/L Normal 3-13 [facility] Comment on above: Performed By: #### H MAYKEL BMP3 #### [facility] [address] [place] [address] Calcium [Mass/Vol] 8.1 mg/dL Low 8.4-10.4 [facility] Comment on above: Performed By: #### H MAYKEL BMP3 #### [facility] [address] [place] [address] CO2 [Moles/Vol] 26 mmol/L Normal 22-30 [facility] Comment on above: Performed By: #### H MAYKEL BMP3 #### [facility] [address] [place] [address] Glucose [Mass/Vol] 156 mg/dL High 70-100 [facility] Comment on above: Performed By: #### H MAYKEL BMP3 #### [facility] [address] [place] [address] Urea nitrogen [Mass/Vol] 19 mg/dL High 7-17 [facility] Comment on above: Performed By: #### H MAYKEL BMP3 #### [facility] [address] [place] [address] Creatinine [Mass/Vol] 0.53 mg/dL Normal 0.52-1.25 [facility] Comment on above: Performed By: #### H MAYKEL BMP3 #### [facility] [address] [place] [address] eGFR OTHER > 90.0 Normal >60 [facility] Comment on above: Result Comment: KDIG [...] Performed By: #### H MAYKEL BMP3 #### [facility] [address] [place] [address] GFR/1.73 sq M.predicted among blacks MDRD (S/P/Bld) [Vol rate/Area] mL/min/{1.73_m2} Normal >60 [facility] Comment on above: Performed By: #### H MAYKEL BMP3 #### [facility] [address] [place] [address] Chloride [Moles/Vol] 103 mmol/L Normal 98-107 [facility] Comment on above: Performed By: #### H MAYKEL BMP3 #### [facility] [address] [place] [address] Potassium [Moles/Vol] 3.4 mmol/L Low 3.5-5.1 [facility] Comment on above: Performed By: #### H MAYKEL BMP3 #### [facility] [address] [place] [address] Sodium [Moles/Vol] 136 mmol/L Normal 135-145 [facility] Comment on above: Performed By: #### H MAYKEL, BMP3 #### [facility] [address] [place] [address] Basic Metabolic Panel w/ Ref marciano to MGon 03-21-2021 Anion gap [Moles/Vol] 7 mmol/L 3 - 13 mmol/L [facility] Work Phone: Calcium [Mass/Vol] 8.1 mg/dL Low 8.4 - 10. 4 mg/dL [facility] Work Phone: Chloride [Moles/Vol] 103 mmol/L 98 - 10 7 mmol/L [facility] Work Phone: CO2 [Moles/Vol] 26 mmol/L 22 - 30 mmol/L [facility] Work Phone: Creatinine [Mass/Vol] 0.53 mg/dL 0.52 - 1.25 mg/dL [employer] Work Phone: EGFR IF NonAfrican [place]an >90.0 >60 mL/min [employer] Work Phone: Comment on above: KDIGO guidelines [...] MDRD (S/P/Bld) [Vol rate/Area] mL/min/{1.73_m2} >60 mL/min [employer] Work Phone: Glucose [Mass/Vol] 156 mg/dL High 70 - 100 mg/dL [employer] Work Phone: Interpretation and review of laboratory results Abnormal [employer] Work Phone: Potassium [Moles/Vol] 3.4 mmol/L Low 3.5 - 5.1 mmol/L [employer] Work Phone: Sodium [Moles/Vol] 136 mmol/L 135 - 145 mmol/L [employer] Work Phone: Urea nitrogen (BldV) [Mass/Vol] 19 mg/dL High 7 - 17 mg/dL [employer] Work Phone: Test [facility], [address] [place], [place] [id number] [place] [address] LAB [employer] Work Phone: CBCon 03-21-2021 Hematocrit (Bld) [Volume fraction] 35.4 % Low 40.0 - 52.0 % [facility] Work Phone: Hemoglobin.gastrointest inal spec 1 Ql (Stl) 11.9 g/dL Low 13.0 - 18.0 g/dL [facility] Work Phone: Interpretation and review of laboratory results Abnormal [facility] Work Phone: MCH (RBC) [Entitic mass] 30.5 pg 26.0 - 34.0 pg [employer] Work Phone: MCHC (RBC) [Mass/Vol] 33.7 % 32.0 - 36.0 % [facility] Work Phone: MCV (RBC) [Entitic vol] 90.6 fL 80.0 - 98.0 fL [facility] Work Phone: Platelet distribution width (Bld) [Ratio] 13.1 % 11.5 - 14.5 % [facility] Work Phone: Platelet mean volume (Bld) [Entitic vol] 9.1 fL 7.4 - 10.4 fL [facility] Work Phone: Platelets (Bld) [#/Vol] 136 10*3/uL Low 140 - 440 10*3/uL [facility] Work Phone: RBC (Bld) [#/Vol] 3.91 10*6/uL Low 4.40 - 5.9 0 10*6/uL [facility] Work Phone: WBC (Bld) [#/Vol] 7.1 10*3/uL 3.6 - 10.7 10*3/uL [facility] Work Phone: Test Performed by [facility], [address] [place], [place] [address] [facility] Work Phone: Glucose,Bedsideon 03-21-2021 Glucose [Mass/Vol] 131 mg/dL High 70-100 [facility] [employer] Comment on above: Result Comment: Test performed by glucose meter. Results may be 10%-15% lower than serum/plasma values. (CLIA ID [id number]) Performed By: #### B GLU #### [facility] [address] [place] [address] Glucose [Mass/Vol] 230 mg/dL High 70-100 [facility] Comment on above: Result Comment: Test performed by glucose meter. Results may be 10%-15% lower than serum/plasma values. (CLIA ID [id number]) Performed By: #### B GLU #### [facility] [address] [place] [address] Hemogramon 03-21-2021 Erythrocyte distribution width (RBC) [Ratio] 13.1 % Normal 11.5-14.5 [facility] Comment on above: Performed By: #### H EMDF, BMP3 #### [facility] [address] [place] [address] Hematocrit (Bld) [Volume fraction] 35.4 % Low 40.0-52.0 [facility] Comment on above: Performed By: #### H EMDF, BMP3 #### [facility] [address] [place] [address] Hemoglobin (Bld) [Mass/Vol] 11.9 g/dL Low 13.0-18.0 [facility] Comment on above: Performed By: #### H EMDF, BMP3 #### [facility] [address] [place] [address] MCH (RBC) [Entitic mass] 30.5 pg Normal 26.0-34.0 [facility] Comment on above: Performed By: #### H EMDF, BMP3 #### [facility] [address] [place] [address] MCHC 33.7 % Normal 32.0-36.0 [facility] Comment on above: Performed By: #### H EMDF, BMP3 #### [facility] [address] [place] [address] MCV (RBC) [Entitic vol] 90.6 fL Normal 80.0-98.0 [facility] Comment on above: Performed By: #### H EMDF, BMP3 #### [facility] [address] [place] [address] Platelet mean volume (Bld) [Entitic vol] 9.1 fL Normal 7.4-10.4 [facility] Comment on above: Performed By: #### H EMDF, BMP3 #### [facility] [address] [place] [address] Platelets (Bld) [#/Vol] 136 10*3/uL Low 140-440 [facility] Comment on above: Performed By: #### H EMDF, BMP3 #### [facility] [address] [place] [address] RBC (Bld) [#/Vol] 3.91 10*6/uL Low 4.40-5.90 [facility] Comment on above: Performed By: #### H EMDF, BMP3 #### [facility] [address] [place] [address] WBC (Bld) [#/Vol] 7.1 10*3/uL Normal 3.6-10.7 [facility] Comment on above: Performed By: #### H EMDF, BMP3 #### [facility] [address] [place] [address] Magnesiumon 03-21-2021 Magnesium [Mass/Vol] 2.2 mg/dL Normal 1.6-2.3 [facility] Comment on above: Performed By: #### H EMDF, BMP3 #### [facility] [address] [place] [address] Magnesium [Mass/Vol] 2.2 mg/dL 1.6 - 2 .3 mg/dL [facility] Work Phone: Test Performed by [facility], [address] [place] [address] [facility] Work Phone: POCT Glucoseon 03-21-2021 Glucose [Mass/Vol] 131 mg/dL High 70 - 100 mg/dL [facility] Comment on above: Test performed by gl ucose meter. Results may be 10%-15% lower than serum/plasma values. (CLIA ID [id number]) Interpretation and review of laboratory results Abnormal [facility] Test Performed by [facility], [address] [place] [address] [facility] Glucose [Mass/Vol] 230 mg/dL High 70 - 100 mg/dL [facility] Comment on above: Test performed by gl ucose meter. Results may be 10%-15% lower than serum/plasma values. (CLIA ID [id number]) Interpretation and review of laboratory results Abnormal [facility] Test Performed by [facility], [address] [place] [address] [facility] Procalcitoninon 03-21-2021 Interpretation See Below Normal [facility] Comment on above: Result Comment: PCT <0.50 = Low risk of severe sepsis and/or septic shock. PCT >2.00 = High risk of severe sepsis and/or septic shock. Performed By: #### H EMDF, BMP3 #### [facility] [address] [place] [address] Basic Metabolic Panelon 11-2 Calcium [Mass/Vol] 8.4 mg/dL Normal 8.4-10.4 [facility] Comment on above: Performed By: #### H EMDF, BMP3 #### [facility] [address] [place] [address] Anion gap [Moles/Vol] 6 mmol/L Normal 3-13 [facility] Comment on above: Performed By: #### H EMDF, BMP3 #### [facility] [address] [place] [address] CO2 [Moles/Vol] 27 mmol/L Normal 22-30 [facility] Comment on above: Performed By: #### H EMDF, BMP3 #### [facility] [address] [place] [address] Glucose [Mass/Vol] 106 mg/dL High 70-100 [facility] Comment on above: Performed By: #### H EMDF, BMP3 #### [facility] [address] [place] [address] Urea nitrogen [Mass/Vol] 14 mg/dL Normal 7-17 [facility] Comment on above: Performed By: #### H EMDF, BMP3 #### [facility] [address] [place] [address] Creatinine [Mass/Vol] 0.51 mg/dL Low 0.52-1.25 [facility] Comment on above: Performed By: #### H MAYKEL BMP3 #### [facility] [address] [place] [address] eGFR OTHER > 90.0 Normal >60 [facility] Comment on above: Result Comment: KDIG [...] Performed By: #### Kerri BRAR BMP3 #### [facility] [address] [place] [address] GFR/1.73 sq M.predicted among blacks MDRD (S/P/Bld) [Vol rate/Area] mL/min/{1.73_m2} Normal >60 [facility] Comment on above: Performed By: #### Kerri BRAR BMP3 #### [facility] [address] [place] [address] Chloride [Moles/Vol] 104 mmol/L Normal 98-107 [facility] Comment on above: Performed By: #### H MAYKEL BMP3 #### [facility] [address] [place] [address] Potassium [Moles/Vol] 3.9 mmol/L Normal 3.5-5.1 [facility] Comment on above: Performed By: #### Kerri BRAR BMP3 #### [facility] [address] [place] [address] Sodium [Moles/Vol] 137 mmol/L Normal 135-145 [facility] Comment on above: Performed By: #### H KORIN BRAR3 #### [facility] [address] [place] [address] Anion gap [Moles/Vol] 6 mmol/L 3 - 13 mmol/L [facility] Work Phone: Calcium [Mass/Vol] 8.4 mg/dL 8.4 - 10. 4 mg/dL [facility] Work Phone: Chloride [Moles/Vol] 104 mmol/L 98 - 10 7 mmol/L [facility] Work Phone: CO2 [Moles/Vol] 27 mmol/L 22 - 30 mmol/L [facility] Work Phone: Creatinine [Mass/Vol] 0.51 mg/dL Low 0.52 - 1.25 mg/dL [facility] Work Phone: EGFR IF NonAfrican [place]wandan >90.0 >60 mL/min [facility] Work Phone: Comment on above: KDIGO guidelines [...] MDRD (S/P/Bld) [Vol rate/Area] mL/min/{1.73_m2} >60 mL/min [facility] Work Phone: Glucose [Mass/Vol] 106 mg/dL High 70 - 100 mg/dL [facility] Work Phone: Interpretation and review of laboratory results Abnormal [facility] Work Phone: Potassium [Moles/Vol] 3.9 mmol/L 3.5 - 5.1 mmol/L [facility] Work Phone: Sodium [Moles/Vol] 137 mmol/L 135 - 145 mmol/L [facility] Work Phone: Urea nitrogen (BldV) [Mass/Vol] 14 mg/dL 7 - 17 mg/dL [facility] Work Phone: Test Performed by [facility] [employer], [address] [place], [place] [id number] [place] [address] LAB [facility] Work Phone: C-Reactive Proteinon 03-20- 021 CRP [Mass/Vol] 228.1 mg/L High 0.0-9.9 [facility] Comment on above: Result Comment: . Performed By: #### H EMDF, BMP3 #### [facility] [address] [place] [address] CRP [Mass/Vol] 228.1 mg/L High 0.0 - 9.9 mg/L [facility] Work Phone: Comment on above: . Interpretation and review of laboratory results Abnormal [facility] Work Phone: Test Performed by [facility] [employer], [address] [place], [place] [id number] [place] [address] LAB [facility] Work Phone: COVID and Resp PCR Panelon 1 05-20-2020 SARS-CoV-2 (COVID-19) RNA SHIRLEY+probe Ql (Unsp spec) COVID and Resp PCR Panel --> Status: F POSITIVE: Respiratory Syncytial Virus DETECTED. _ Expected Result: Not Detected [employer] Upper Respiratory Pathogens PCR Panel can detect the following targets: SARS-CoV-2, Adenovirus, Coronavirus 229E, Coronavirus HKU1, Coronavirus NL63, Coronavirus OC43, Human Metapneumovirus, Human Rhinovirus/Enteroviru s, Influenza A, Influenza B, Parainfluenza Virus 1, Parainfluenza Virus 2, Parainfluenza Virus 3, Parainfluenza Virus 4, Respiratory Syncytial Virus, Bordetella pertussis, Bordetella parapertussis, Chlamydia pneumoniae, Mycoplasma pneumoniae. Method: Real-time PCR. _ Expected Result: Not Detected [employer] Upper Respiratory Pathogens PCR Panel can detect the following targets: SARS-CoV-2, Adenovirus, Coronavirus 229E, Coronavirus HKU1, Coronavirus NL63, Coronavirus OC43, Human Metapneumovirus, Human Rhinovirus/Enteroviru s, Influenza A, Influenza B, Parainfluenza Virus 1, Parainfluenza Virus 2, Parainfluenza Virus 3, Parainfluenza Virus 4, Respiratory Syncytial Virus, Bordetella pertussis, Bordetella parapertussis, Chlamydia pneumoniae, Mycoplasma pneumoniae. Method: Real-time PCR. Abnormal [facility] Comment on above: Performed By: #### B FRP2 #### [facility] [address] [place] [id number] EKG 12 Lead - Chest Painon 1 05-20-[address] 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 : 1955 Requested By: BRADY DESAI Order Number: [id number] Reading MD: Fei Menjivar Measurements Intervals [place] Rate: 102 P: 71 IN: 172 QRS: -30 QRSD: 156 T: 85 QT: 412 QTc: 537 Interpretive Statements SINUS TACHYCARDIA LEFT BUNDLE BRANCH BLOCK Electronically Signed On 03-20-2021 22:47:41 EST by Fei Menjivar [facility] Tiara, Fei Cotto MD - 03/20/2021 [facility] [employer] Test Date: 2021-03-19 Pat Name: KATHYA HOOPER Department: 1 Room: 465 Gender: M 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 : 1955 Requested By: BRADY DESAI Order Number: [id number] Reading MD: Fei Menjivar Measurements Intervals [place] Rate: 102 P: 71 IN: 172 QRS: -30 QRSD: 156 T: 85 QT: 412 QTc: 537 Interpretive Statements SINUS TACHYCARDIA LEFT BUNDLE BRANCH BLOCK Electronically Signed On 03-20-2021 22:47:41 EST by Fei Menjivar [facility] Work Phone: EKG 12 Lead - Chest PainOrde red By: Fei Menjivar on 03-20-2021 [facility] Work Phone: Lactic Acidon 03-20-2021 Lactate [Moles/Vol] 0.7 mmol/L Normal 0.7-2.0 [facility] Comment on above: Performed By: #### H EMDF, BMP3 #### [facility] [employer] [address] [place] [address] Lactic Acid, Plasmaon 2020 Lactate [Moles/Vol] 0.7 mmol/L 0.7 - 2. 0 mmol/L [facility] Work Phone: Test Performed by [facility] [employer], [address] [place], [place] [id number] [place] [address] LAB [facility] Work Phone: PROCALCITONINon 03-20-2021 Interpretation See Below [facility] Work Phone: Comment on above: PCT <0.50 = Low risk of severe sepsis and/or septic shock. PCT >2.00 = High risk of severe sepsis and/or septic shock. Interpretation and review of laboratory results Abnormal [facility] Work Phone: Test Performed by [facility], [address] [place] [id number] [place] [address] LAB [facility] Work Phone: Procalcitoninon 03-20-2021 Procalcitonin 0.14 ng/mL High 0.00-0.09 [facility] Work Phone: Comment on above: Performed By: #### H EMDF, BMP3 #### [facility] [employer] [facility] [address] [place] [address] Interpretation See Below Normal [facility] Comment on above: Result Comment: PCT <0.50 = Low risk of severe sepsis and/or septic shock. PCT >2.00 = High risk of severe sepsis and/or septic shock. Performed By: #### H KORIN BRAR3 #### [facility] [address] [place] [address] Troponinon 03-20-2021 Interpretation and review of laboratory results Abnormal [facility] Work Phone: Troponin I.cardiac [Mass/Vol] 0.037 ng/mL High 0.000 - 0.034 ng/mL [facility] Work Phone: Comment on above: . Test Performed by [place] [address] [place], [place] [address] [facility] LAB [facility] Work Phone: Troponin Ion 03-20-2021 Troponin I.cardiac [Mass/Vol] 0.037 ng/mL High 0.000-0.034 [facility] Comment on above: Result Comment: . Performed By: #### H MITALI BRAR #### [address] [place] [address] Arterial Blood Gas Respirato yasmine 03-19-2021 Base Excess 1.2 mmol/L Normal -3.0-3.0 [facility] Comment on above: Performed By: #### B GLU #### [address] [place] [address] CO2 [Moles/Vol] 25.6 mmol/L Normal 23.0-27.0 [facility] Comment on above: Performed By: #### B GLU #### [facility] [address] [place] [address] FIO2 5 Normal [facility] Comment on above: Result Comment: Perf ormed by CLIA ID: [id number] [place], [place] Performed By: #### B GLU #### [place] [address] [place] [address] HCO3 (Bld) [Moles/Vol] 24.6 mmol/L Normal 21.0-25.0 [facility] Comment on above: Performed By: #### B GLU #### [address] [place] [address] Oxygen (Bld) [Partial pressure] 56.7 mm[Hg] Low 80.0-100.0 [facility] Comment on above: Performed By: #### B GLU #### [facility] [address] [place] [address] Oxygen saturation in Blood 91.0 % Low 95.0-100.0 [facility] Comment on above: Performed By: #### B GLU #### [facility] [address] [place] [address] pCO2 33.9 mm[Hg] Low 35.0-45.0 [facility] Comment on above: Performed By: #### B GLU #### [facility] [address] [place] [address] pH 7.468 High 7.350-7.450 [facility] Comment on above: Performed By: #### B GLU #### [facility] [address] [place] [address] Basic Metabolic Panelon 11- Anion gap [Moles/Vol] 9 mmol/L Normal 3-13 [facility] Comment on above: Performed By: #### B MP3, TROPN ####[facility] [place] [address] Calcium [Mass/Vol] 8.5 mg/dL Normal 8.4-10.4 [facility] Comment on above: Performed By: #### B MP3, TROPN ####[facility] [place] [address] CO2 [Moles/Vol] 26 mmol/L Normal 22-30 [facility] Comment on above: Performed By: #### B MP3, TROPN ####[facility] [place] [address] Creatinine [Mass/Vol] 0.48 mg/dL Low 0.52-1.25 [facility] Comment on above: Performed By: #### B MP3, TROPN ####[facility] [place] [address] eGFR OTHER > 90.0 Normal >60 [facility] Comment on above: Result Comment: KDIG [...] secretion. Performed By: #### Anamika LOPEZ3 TROPN ####[place] [address] [place] [address] GFR/1.73 sq M.predicted among blacks MDRD (S/P/Bld) [Vol rate/Area] mL/min/{1.73_m2} Normal >60 [facility] Comment on above: Performed By: #### Anamika MP3, TROPN ####[place] [address] [place] [address] Glucose [Mass/Vol] 132 mg/dL High 70-100 [facility] Comment on above: Performed By: #### B MP3, TROPN ####[address] [place] [address] Urea nitrogen [Mass/Vol] 16 mg/dL Normal 7-17 [facility] Comment on above: Performed By: #### B MP3, TROPN ####[place] [address] [place] [address] Chloride [Moles/Vol] 102 mmol/L Normal 98-107 [facility] Comment on above: Performed By: #### B MP3, TROPN ####[place] [address] [place] [address] Potassium [Moles/Vol] 4.1 mmol/L Normal 3.5-5.1 [facility] Comment on above: Performed By: #### B MP3, TROPN ####[place] [address] [place] [address] Sodium [Moles/Vol] 137 mmol/L Normal 135-145 [facility] Comment on above: Performed By: #### B MP3, REBEKA ####[facility] [place] [address] Anion gap [Moles/Vol] 9 mmol/L 3 - 13 mmol/L [facility] Calcium [Mass/Vol] 8.5 mg/dL 8.4 - 10. 4 mg/dL [facility] Chloride [Moles/Vol] 102 mmol/L 98 - 10 7 mmol/L [facility] CO2 [Moles/Vol] 26 mmol/L 22 - 30 mmol/L [facility] Creatinine [Mass/Vol] 0.48 mg/dL Low 0.52 - 1.25 mg/dL [facility] EGFR IF NonAfrican Rwandan >90.0 >60 mL/min [facility] Comment on above: [...] - 17 mg/dL [facility] Test Performed by [facility], [address] [place], [place] [id number] [place] [address] LAB [facility] CBC Auto Differentialon 03-01 Absolute Baso # [...] Interpretation and review of laboratory results Abnormal [facility] RSV PCR DETECTED Expected Result: Not Detected _ Method: Real-time, RT-PCR This assay was developed by [employer] and distributed under an Emergency Use Authorization (EUA) granted by the FDA for the qualitative detection of nucleic acids from SARS-CoV-2, Influenza A, Influenza B, and Respiratory Syncytial Virus. Provider and patient fact sheets can be found at https://www.fda.gov/m edia/874364/download and https://www.fda.gov/m edia/721707/download. Abnormal [facility] SARS-CoV-2 (COVID-19) RNA SHIRLEY+probe Ql (Unsp spec) Not detected [facility] Test Performed by [facility], [address] LAB [facility] CR Chest Portableon 03-19-20 21 CR Chest Portable Patient Name: KATHYA HOOPER Diagnostic Radiology ACCESSION EXAM DATE/TIME PROCEDURE ORDERING PROVIDER [id number] 03/19/2021 17:10 EST CR Chest Portable [id number] -BRADY DESAI CPT code 53157 Reason For Exam (CR Chest Portable) hypoxia [...] Transcribed Date and Time: 03/19/2021 5:22 Normal [facility] ED Provider Noteon ED Provider Note Emergency Department Encounter [facility] ED Patient: Kathya Hooper : 1955 Date of Evaluation: 03/19/2021 ED Provider: Brady Desai, Chief Complaint Chief Complaint Patient presents with ? Shortness of Breath PASCUA YAQUI I wore appropriate PPE for the entirety of this encounter. Does this patient come from an ECF, SNF, Rehab, Nursing Home or other Congregate setting: yes (If [...] otherwise acutely negative except as in the PASCUA YAQUI. Past History Past Medical History: Diagnosis Date [...] and Family: Not on file ? Attends Zoroastrianism Services: Not on file ? Active Member [...] TABLET T (more content not included)... Normal [facility] Hemogram w/ Autodiffon 03-19 Abs Baso Cnt 0.1 10*3/uL Normal 0.0-0.2 [facility] Comment on above: Performed By: #### B GLU #### [facility] [address] [place] [address] Abs Neutrophile Cnt 7.2 10*3/uL High 1.8-7.0 [facility] Comment on above: Performed By: #### B GLU #### [facility] [address] [facility] [place] [address] Basophils/100 WBC (Bld) 0.6 % Normal 0.0-2.0 [facility] Comment on above: Performed By: #### B GLU #### [facility] [address] [facility] [place] [address] Eosinophils (Bld) [#/Vol] 0.0 10*3/uL Normal 0.0-0.5 [facility] Comment on above: Performed By: #### B GLU #### [facility] [address] [place] [address] Eosinophils/100 WBC (Bld) 0.2 % Low 1.0-6.0 [facility] Comment on above: Performed By: #### B GLU #### [facility] [address] [place] [address] Erythrocyte distribution width (RBC) [Ratio] 13.0 % Normal 11.5-14.5 [facility] Comment on above: Performed By: #### B GLU #### [facility] [address] [place] [address] Granulocytes/100 WBC (Bld) 79.0 % Normal 40.0-80.0 [facility] Comment on above: Performed By: #### B GLU #### [facility] [address] [place] [address] Hematocrit (Bld) [Volume fraction] 38.5 % Low 40.0-52.0 [facility] Comment on above: Performed By: #### B GLU #### [place] [address] [place] [address] Hemoglobin (Bld) [Mass/Vol] 13.1 g/dL Normal 13.0-18.0 [facility] Comment on above: Performed By: #### B GLU #### [facility] [address] [place] [address] Lymphocytes (Bld) [#/Vol] 1.0 10*3/uL Normal 1.0-4.3 [facility] Comment on above: Performed By: #### B GLU #### [place] [address] [place] [address] Lymphocytes/100 WBC (Bld) 10.8 % Low 20.0-40.0 [facility] Comment on above: Performed By: #### B GLU #### [place] [address] [place] [address] MCH (RBC) [Entitic mass] 30.9 pg Normal 26.0-34.0 [facility] Comment on above: Performed By: #### B GLU #### [place] [address] [place] [address] MCHC 33.9 % Normal 32.0-36.0 [facility] Comment on above: Performed By: #### B GLU #### [facility] [address] [place] [address] MCV (RBC) [Entitic vol] 91.1 fL Normal 80.0-98.0 [facility] Comment on above: Performed By: #### B GLU #### [facility] [address] [place] [address] Monocytes (Bld) [#/Vol] 0.9 10*3/uL High 0.0-0.8 [facility] Comment on above: Performed By: #### B GLU #### [facility] [address] [place] [address] Monocytes/100 WBC (Bld) 9.4 % Normal 2.0-10.0 [facility] Comment on above: Performed By: #### B GLU #### [facility] [address] [place] [address] Platelet mean volume (Bld) [Entitic vol] 9.9 fL Normal 7.4-10.4 [facility] Comment on above: Performed By: #### B GLU #### [facility] [address] [place] [address] Platelets (Bld) [#/Vol] 163 10*3/uL Normal 140-440 [facility] Comment on above: Performed By: #### B GLU #### [facility] [address] [place] [address] RBC (Bld) [#/Vol] 4.23 10*6/uL Low 4.40-5.90 [facility] Comment on above: Performed By: #### B GLU #### [facility] [address] [place] [address] WBC (Bld) [#/Vol] 9.1 10*3/uL Normal 3.6-10.7 [facility] Comment on above: Performed By: #### B GLU #### [facility] [address] [place] [address] Lactic Acidon 03-19-2021 Lactate [Moles/Vol] 2.3 mmol/L Critically high 0.7-2.0 [facility] Comment on above: Performed By: #### L ACT3 ####[facility] [place] [address] Lactic Acid, Plasmaon 2020 Lactate [Moles/Vol] 2.3 mmol/L Critically high 0.7 - 2.0 mmol/L [facility] No Panel Informationon 03-19 Interpretation and review of laboratory results Abnormal [facility] Test Performed by [facility], [address] [place], [place] [id number] [place] [address] LAB [facility] RBC MORPHOLOGYon 03-19-2021 Poikilocytes Slight [facility] RBC (Bld) [#/Vol] ABNORMAL [facility] Tear Drop Cells Slight [facility] RBC Morphologyon 03-19-2021 Ovalocytes Slight Normal [facility] Comment on above: Performed By: #### B GLU #### [facility] [address] [place] [address] Poikilocytosis Slight Normal [facility] Comment on above: Performed By: #### B GLU #### [facility] [address] [place] [address] Polychromasia Slight Normal [facility] Comment on above: Performed By: #### B GLU #### [facility] [address] [place] [address] RBC morphology finding Nom (Bld) ABNORMAL Normal [facility] Comment on above: Performed By: #### B GLU #### [facility] [address] [place] [address] Tear Drop Forms Slight Normal [facility] Comment on above: Performed By: #### B GLU #### [facility] [address] [place] [address] Respiratory Panel, Molecular , with COVID-19 (Restricted: peds pts or suitable admitted adults)on 03-19-2021 Interpretation and review of laboratory results Abnormal [facility] Respiratory Panel Molecular, with COVID POSITIVE: Respiratory Syncytial Virus DETECTED. _ Expected Result: Not Detected [employer] Upper Respiratory Pathogens PCR Panel can detect the following targets: SARS-CoV-2, Adenovirus, Coronavirus 229E, Coronavirus HKU1, Coronavirus NL63, Coronavirus OC43, Human Metapneumovirus, Human Rhinovirus/Enteroviru s, Influenza A, Influenza B, Parainfluenza Virus 1, Parainfluenza Virus 2, Parainfluenza Virus 3, Parainfluenza Virus 4, Respiratory Syncytial Virus, Bordetella pertussis, Bordetella parapertussis, Chlamydia pneumoniae, Mycoplasma pneumoniae. Method: Real-time PCR. Abnormal [facility] Test Performed by [facility] [employer], [address] [place] [address] [facility] LAB [facility] SARS-CoV-2, Flu A/B and RSVo n 03-19-2021 SARS-CoV-2 (COVID-19) RNA SHIRLEY+probe Ql (Unsp spec) SARS-CoV-2 --> Status: F Not Detected. Flu A PCR --> Status: F Not Detected. Flu B PCR --> Status: F Not Detected. RSV PCR --> Status: F DETECTED Expected Result: Not Detected _ Method: Real-time, RT-PCR This assay was developed by [employer] and distributed under an Emergency Use Authorization (EUA) granted by the FDA for the qualitative detection of nucleic acids from SARS-CoV-2, Influenza A, Influenza B, and Respiratory Syncytial Virus. Provider and patient fact sheets can be found at https://www.fda.gov/m edia/454650/download and https://www.fda.gov/m edia/879714/download. Expected Result: Not Detected _ Method: Real-time, RT-PCR This assay was developed by [employer] and distributed under an Emergency Use Authorization (EUA) granted by the FDA for the qualitative detection of nucleic acids from SARS-CoV-2, Influenza A, Influenza B, and Respiratory Syncytial Virus. Provider and patient fact sheets can be found at https://www.fda.gov/m edia/943048/download and https://www.fda.gov/m edia/061397/download. Abnormal [facility] Comment on above: Performed By: #### C VFLR #### [facility] [address] [place] [address] , [address] Troponinon 03-19-2021 Troponin I.cardiac [Mass/Vol] 0.017 ng/mL 0.000 - 0.034 ng/mL [facility] Comment on above: . Test Performed by [facility] [employer], [address], [place], [place] [address] [facility] LAB [facility] Troponin Ion 03-19-2021 Troponin I.cardiac [Mass/Vol] 0.017 ng/mL Normal 0.000-0.034 [facility] Comment on above: Result Comment: . Performed By: #### B REBEKA PIEDRA ####[facility] [place] [address] XR CHEST PORTABLEon 03-19-20 Patient Name: KATHYA HOOPER Diagnostic Radiology ACCESSION EXAM DATE/TIME PROCEDURE ORDERING PROVIDER [id number] 03/19/2021 17:10 EST CR Chest Portable [id number] -NESHEIM, BRADY CPT code 78283 Reason For Exam (CR Chest Portable) hypoxia [...] J Transcribed Date and Time: 03/19/2021 5:22 [facility] Keshawn Simpson MD - 03/19/2021 Patient Name: KATHYA HOOPER Diagnostic Radiology ACCESSION EXAM DATE/TIME PROCEDURE ORDERING PROVIDER [id number] 03/19/2021 17:10 EST CR Chest Portable [id number] -NESHEIM, BRADY CPT code 91637 Reason For Exam (CR Chest Portable) hypoxia [...] Date and Time: 03/19/2021 5:22 [facility] Work Phone: Radiology Study observation (narrative) [facility] Work Phone: XR CHEST PORTABLEOrdered By: Keshawn Simpson on 03-19-2021 [facility] Work Phone: Basic Metabolic Panelon 03-01 Calcium [Mass/Vol] 8.4 mg/dL Normal 8.4-10.4 [facility] Comment on above: Performed By: #### H ALCIRAF, BMP3 #### [facility] [address] [place] [address] Glucose [Mass/Vol] 110 mg/dL High 70-100 [facility] Comment on above: Performed By: #### H MAYKEL BMP3 #### [facility] [address] [place] [address] Anion gap [Moles/Vol] 7 mmol/L Normal 3-13 [facility] Comment on above: Performed By: #### H ALCIRAF, BMP3 #### [facility] [address] [place] [address] CO2 [Moles/Vol] 26 mmol/L Normal 22-30 [facility] Comment on above: Performed By: #### H MAYKEL, BMP3 #### [facility] [address] [place] [address] Creatinine [Mass/Vol] 0.54 mg/dL Normal 0.52-1.25 [facility] Comment on above: Performed By: #### H ALCIRAF BMP3 #### [facility] [address] [place] [address] eGFR OTHER > 90.0 Normal >60 [facility] Comment on above: Result Comment: KDIG [...] Performed By: #### H MAYKEL BMP3 #### [facility] [address] [place] [address] GFR/1.73 sq M.predicted among blacks MDRD (S/P/Bld) [Vol rate/Area] mL/min/{1.73_m2} Normal >60 [facility] Comment on above: Performed By: #### H MAYKEL BMP3 #### [facility] [address] [place] [address] Urea nitrogen [Mass/Vol] 18 mg/dL High 7-17 [facility] Comment on above: Performed By: #### H MAYKEL BMP3 #### [facility] [address] [place] [address] Potassium [Moles/Vol] 3.9 mmol/L Normal 3.5-5.1 [facility] Comment on above: Performed By: #### H MAYKEL BMP3 #### [facility] [address] [place] [address] Chloride [Moles/Vol] 104 mmol/L Normal 98-107 [facility] Comment on above: Performed By: #### H MAYKEL BMP3 #### [facility] [address] [place] [address] Sodium [Moles/Vol] 137 mmol/L Normal 135-145 [facility] Comment on above: Performed By: #### H MAYKEL BMP3 #### [facility] [address] [place] [address] Anion gap [Moles/Vol] 7 mmol/L 3 - 13 mmol/L [facility] Calcium [Mass/Vol] 8.4 mg/dL 8.4 - 10. 4 mg/dL [facility] Chloride [Moles/Vol] 104 mmol/L 98 - 10 7 mmol/L [facility] CO2 [Moles/Vol] 26 mmol/L 22 - 30 mmol/L [facility] Creatinine [Mass/Vol] 0.54 mg/dL 0.52 - 1.25 mg/dL [facility] EGFR IF NonAfrican Rwandan >90.0 >60 mL/min [facility] Comment on above: [...] 110 mg/dL High 70 - 100 mg/dL [facility] Interpretation and review of laboratory results Abnormal [facility] Potassium [Moles/Vol] 3.9 mmol/L 3.5 - 5.1 mmol/L [facility] Sodium [Moles/Vol] 137 mmol/L 135 - 145 mmol/L [facility] Urea nitrogen (BldV) [Mass/Vol] 18 mg/dL High 7 - 17 mg/dL [facility] Brain Natriuretic Peptideon 03-18-2021 Interpretation and review of laboratory results Abnormal [facility] Natriuretic peptide B (Bld) [Mass/Vol] 710 pg/mL High 0 - 125 pg/mL [facility] Test Performed by [facility] [employer] [facility], [address] [place], [place], [place] [id number] [place] [address] LAB [facility] CBC Auto Differentialon 03-01 Absolute [...] 10*6/uL Low 4.40 - 5.9 0 10*6/uL [facility] WBC (Bld) [#/Vol] 8.8 10*3/uL 3.6 - 10.7 10*3/uL [facility] Test Performed by [facility], [address] [place] [address] [facility] LAB [facility] COVID-19, Flu A/B, and RSV C omboon 03-18-2021 Influenza A by PCR Not detected [facility] Influenza B by PCR Not detected [facility] Interpretation and review of laboratory results Abnormal [facility] RSV PCR DETECTED Expected Result: Not Detected _ Method: Real-time, RT-PCR This assay was developed by [employer] and distributed under an Emergency Use Authorization (EUA) granted by the FDA for the qualitative detection of nucleic acids from SARS-CoV-2, Influenza A, Influenza B, and Respiratory Syncytial Virus. Provider and patient fact sheets can be found at https://www.fda.gov/m edia/820846/download and https://www.fda.gov/m edia/539583/download. Abnormal [facility] SARS-CoV-2 (COVID-19) RNA SHIRLEY+probe Ql (Unsp spec) Not detected [facility] Test Performed by [facility], [address] LAB [facility] CR Chest Portableon 03-18-20 21 CR Chest Portable Patient Name: KATHYA HOOPER Diagnostic Radiology ACCESSION EXAM DATE/TIME PROCEDURE ORDERING PROVIDER [id number] 03/18/2021 15:30 EST CR Chest Portable [id number] -BOO CASTRO CPT code 59609 Reason For Exam (CR Chest Portable) sob, [...] KRIKOR Transcribed Date and Time: 03/18/2021 3:35 [facility] CTA Chest W WO (PE study)on 03-18-2021 Patient Name: KATHYA HOOPER Computed Tomography ACCESSION EXAM DATE/TIME PROCEDURE ORDERING PROVIDER [id number] 03/18/2021 16:27 EST CTA Chest w/ + w/o [id number] -HACKBERRY, Contrast BOO CPT code 16356 Q9967 Reason For Exam (CTA Chest w/ [...] MALAY Transcribed Date and Time: 03/18/2021 4:36 [facility] Malcolm Michaels MD - 03/18/2021 Patient Name: KATHYA HOOPER Computed Tomography ACCESSION EXAM DATE/TIME PROCEDURE ORDERING PROVIDER [id number] 03/18/2021 16:27 EST CTA Chest w/ + w/o [id number] -HACKBERRY, Contrast BOO CPT code 83933 Q9967 Reason For Exam (CTA Chest w/ [...] Tomography ACCESSION EXAM DATE/TIME PROCEDURE ORDERING PROVIDER [id number] 03/18/2021 16:27 EST CTA Chest w/ + w/o [id number] -CASTRO, Contrast BOO CPT code 30237 Q9967 Reason For Exam (CTA Chest w/ + w/o Contrast) pulmonary embolus Report CTA chest with and without contrast History: chest pain Protocol: 1 mm images after IV contrast, 3D rendering performed by wi on a separate workstation No evidence of aortic dissection or pulmonary embolism. Patchy scattered bilateral lung infiltrates. Minimal left pleural effusion. No lymphadenopathy. IMPRESSION: Patchy scattered bilateral lung infiltrates. Minimal left pleural effusion. Report Dictated on Final Dictating Physician: MD MICHAELS MALAY Signed Date and Time: 03/18/2021 4:35 pm Signed by: MD MICHAELS MALAY Transcribed Date and Time: 03/18/2021 4:36 Normal [facility] CTA HEAD NECK W WO CONTRASTo n 03-18-2021 Patient Name: KATHYA HOOPER Computed Tomography ACCESSION EXAM DATE/TIME PROCEDURE ORDERING PROVIDER [id number] 03/18/2021 16:26 EST CTA Head/Neck w/ + w/o 677014 -CASTRO, contrast BOO CPT code 87034 01730 Q9967 Reason For Exam (CTA Head/Neck w/ + w/o contrast) AMS, dysphasia and ?aphasia possibly since yesterday- very poor historian from skilled nursing w/ unclear prior deficits - here w/ [...] OSAMA Transcribed Date and Time: 03/18/2021 4:52 [facility] Greyson Rai MD - 03/18/2021 [id number] Computed Tomography ACCESSION EXAM DATE/TIME PROCEDURE ORDERING PROVIDER [id number] 03/18/2021 16:26 EST CTA Head/Neck w/ + w/o 130640 -alyson CASTRO CPT code 37972 60762 Q9967 Reason For Exam (CTA Head/Neck w/ + w/o contrast) AMS, dysphasia and ?aphasia possibly since yesterday- very poor historian from skilled nursing w/ unclear prior deficits - here w/ [...] + w/o contrast Patient [facility]: [facility] [id number] Computed Tomography ACCESSION EXAM DATE/TIME PROCEDURE ORDERING PROVIDER [id number] 03/18/2021 16:26 EST CTA Head/Neck w/ + w/o 969626 -alyson CASTRO CPT code 27143 68543 Q9967 Reason For Exam (CTA Head/Neck w/ + w/o contrast) AMS, dysphasia and ?aphasia possibly since yesterday- very poor historian from skilled nursing w/ unclear prior deficits - here w/ [...] Transcribed Date and Time: 03/18/2021 4:52 Normal [facility] ED Provider Noteon ED Provider Note [facility]Y [facility] ENCOUNTER Pt [...] patient come from an ECF, SNF, Rehab, Nursing Home or other Congregate setting: no (If yes to above patient needs a Covid-19 test) HPI Kathya Hooper is a 66 y.o. 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 TREVER (acute kidney injury) ([facility]) ? Alcohol abuse 07/08/2018 ? [...] Vaping Us (more content not included)... Normal [facility] Hemogram w/ Autodiffon 03-18 Abs Baso Cnt 0.0 10*3/uL Normal 0.0-0.2 [facility] Comment on above: Performed By: #### H KORIN BRAR3 #### [facility] [address] [place] [address] Abs Neutrophile Cnt 7.3 10*3/uL High 1.8-7.0 [facility] Comment on above: Performed By: #### H MAYKEL BMP3 #### [facility] [address] [place] [address] Basophils/100 WBC (Bld) 0.5 % Normal 0.0-2.0 [facility] Comment on above: Performed By: #### H EMDF, BMP3 #### [facility] [address] [place] [address] Eosinophils (Bld) [#/Vol] 0.0 10*3/uL Normal 0.0-0.5 [facility] Comment on above: Performed By: #### H EMDF, BMP3 #### [facility] [address] [place] [address] Eosinophils/100 WBC (Bld) 0.1 % Low 1.0-6.0 [facility] Comment on above: Performed By: #### H EMDF, BMP3 #### [facility] [address] [place] [address] Erythrocyte distribution width (RBC) [Ratio] 12.9 % Normal 11.5-14.5 [facility] Comment on above: Performed By: #### H EMDF, BMP3 #### [facility] [address] [place] [address] Granulocytes/100 WBC (Bld) 82.8 % High 40.0-80.0 [facility] Comment on above: Performed By: #### H EMDF, BMP3 #### [facility] [address] [place] [address] Hematocrit (Bld) [Volume fraction] 38.3 % Low 40.0-52.0 [facility] Comment on above: Performed By: #### H EMDF, BMP3 #### [facility] [address] [place] [address] Hemoglobin (Bld) [Mass/Vol] 13.6 g/dL Normal 13.0-18.0 [facility] Comment on above: Performed By: #### H EMDF, BMP3 #### [facility] [address] [place] [address] Lymphocytes (Bld) [#/Vol] 0.7 10*3/uL Low 1.0-4.3 [facility] Comment on above: Performed By: #### H EMDF, BMP3 #### [facility] [address] [place] [address] Lymphocytes/100 WBC (Bld) 7.6 % Low 20.0-40.0 [facility] Comment on above: Performed By: #### H EMDF, BMP3 #### [facility] [address] [place] [address] MCH (RBC) [Entitic mass] 32.0 pg Normal 26.0-34.0 [facility] Comment on above: Performed By: #### H EMDF, BMP3 #### [facility] [address] [place] [address] MCHC 35.4 % Normal 32.0-36.0 [facility] Comment on above: Performed By: #### H EMDF, BMP3 #### [facility] [address] [place] [address] MCV (RBC) [Entitic vol] 90.2 fL Normal 80.0-98.0 [facility] Comment on above: Performed By: #### H EMDF BMP3 #### [facility] [address] [place] [address] Monocytes (Bld) [#/Vol] 0.8 10*3/uL Normal 0.0-0.8 [facility] Comment on above: Performed By: #### H EMDF, BMP3 #### [facility] [address] [place] [address] Monocytes/100 WBC (Bld) 9.0 % Normal 2.0-10.0 [facility] Comment on above: Performed By: #### H EMDF, BMP3 #### [facility] [address] [place] [address] Platelet mean volume (Bld) [Entitic vol] 9.8 fL Normal 7.4-10.4 [facility] Comment on above: Performed By: #### H EMDF, BMP3 #### [facility] [address] [place] [address] Platelets (Bld) [#/Vol] 129 10*3/uL Low 140-440 [facility] Comment on above: Performed By: #### H EMDF, BMP3 #### [facility] [address] [place] [address] RBC (Bld) [#/Vol] 4.24 10*6/uL Low 4.40-5.90 [facility] Comment on above: Performed By: #### H KORIN BRAR3 #### [facility] [address] [place] [address] WBC (Bld) [#/Vol] 8.8 10*3/uL Normal 3.6-10.7 [facility] Comment on above: Performed By: #### H MAYKEL BMP3 #### [facility] [address] [place] [address] MAGNESIUMon 03-18-2021 Magnesium [Mass/Vol] 2.0 mg/dL 1.6 - 2 .3 mg/dL [facility] Magnesiumon 03-18-2021 Magnesium [Mass/Vol] 2.0 mg/dL Normal 1.6-2.3 [facility] Comment on above: Performed By: #### H KORIN BRAR3 #### [facility] [address] [place] [address] NT pro BNPon 03-18-2021 Natriuretic peptide B (Bld) [Mass/Vol] 710 pg/mL High 0-125 [facility] Comment on above: Performed By: #### H KORIN BRAR3 #### [facility] [address] [place] [address] No Panel Informationon 03-18 Test Performed by [place] [address] [place], [place] [id number] [place] [address] LAB [facility] PROTIME/INR & PTTon 03-18-20 21 aPTT Coag (Bld) [Time] 30.7 s High 20.0 - 30.5 s [facility] Comment on above: NOTE: The therapeuti c time for Heparin anticoagulation, based on Xa activity inhibition, is an APTT of 46-80 seconds. INR Coag (Bld) [Relative time] 1.1 {INR} [facility] Comment on above: Recommended Anticoag [...] review of laboratory results Abnormal [facility] PT Coag (PPP) [Time] 11.4 s 9.0 - 12.0 s [facility] Comment on above: . Test Performed by [facility], [address] [place], [place] [id number] [place] [address] LAB [facility] Protime AND APTTon aPTT Coag (Bld) [Time] 30.7 s High 20.0-30.5 [facility] Comment on above: Result Comment: NOTE : The therapeutic time for Heparin anticoagulation, based on Xa activity inhibition, is an APTT of 46-80 seconds. Performed By: #### H MAYKEL BMP3 #### [facility] [address] [place] [address] INR 1.1 Normal 0.9-1.1 [facility] Comment on above: Result Comment: Yefri [...] prevent Myocardial Infarction Performed By: #### H MAYKEL BMP3 #### [facility] [address] [place] [address] PT Coag (PPP) [Time] 11.4 s Normal 9.0-12.0 [facility] Comment on above: Result Comment: . Performed By: #### H MAYKEL BMP3 #### [facility] [address] [place] [address] SARS-CoV-2, Flu A/B and RSVo n 03-18-2021 SARS-CoV-2 (COVID-19) RNA SHIRLEY+probe Ql (Unsp spec) SARS-CoV-2 --> Status: F Not Detected. Flu A PCR --> Status: F Not Detected. Flu B PCR --> Status: F Not Detected. RSV PCR --> Status: F DETECTED Expected Result: Not Detected _ Method: Real-time, RT-PCR This assay was developed by [employer] and distributed under an Emergency Use Authorization (EUA) granted by the [facility] for the qualitative detection of nucleic acids from SARS-CoV-2, Influenza A, Influenza B, and Respiratory Syncytial Virus. Provider and patient fact sheets can be found at https://www.[facility].gov/ edia/546512/download and https://www.fda.gov/ edia/771648/download. Expected Result: Not Detected _ Method: Real-time, RT-PCR This assay was developed by [employer] and distributed under an Emergency Use Authorization (EUA) granted by the FDA for the qualitative detection of nucleic acids from SARS-CoV-2, Influenza A, Influenza B, and Respiratory Syncytial Virus. Provider and patient fact sheets can be found at https://www.[employer].gov/ edia/231297/download and https://www.[employer].gov/ edia/718495/download. Abnormal [facility] Comment on above: Performed By: #### C VFLR #### [facility] [address] [place] [address] , [address] TS GELon 03-18-2021 TS GEL ABO Group: O Rh, Gel: POS Antibody Screen Gel: NEG Normal [facility] Comment on above: Performed By: #### T SGL #### [facility] [employer] [facility] TYPE AND SCREENon 03-18-2021 ABO Grouping O [facility] Rh Type Positive [facility] Test Performed by [facility], [address] [place], [place] [address] [facility] X[facility] CHEST PORTABLEon 03-18-20 Patient Name: KATHYA HOOPER Diagnostic Radiology ACCESSION EXAM DATE/TIME PROCEDURE ORDERING PROVIDER [id number] 03/18/2021 15:30 EST CR Chest Portable [id number] -BOO CASTRO CPT code 57481 Reason For Exam (CR Chest Portable) sob, [...] KRIKOR Transcribed Date and Time: 03/18/2021 3:35 [facility] - 03/18/2021 Patient Name: KATHYA HOOPER Diagnostic Radiology ACCESSION EXAM DATE/TIME PROCEDURE ORDERING PROVIDER [id number] 03/18/2021 15:30 EST CR Chest Portable [id number] -BOO CASTRO CPT code 17557 Reason For Exam (CR Chest Portable) sob, [...] KRIKOR Transcribed Date and Time: 03/18/2021 3:35 [facility] Work Phone: Radiology Study observation (narrative) [facility] Work Phone: XR CHEST PORTABLEOrdered By: Alejandra Munoz on 03-18-2021 [facility] Work Phone: ED Provider Noteon 1 ED Provider Note - Attestation signed by Edwin Montejo MD at 10/31/2020 7:09 AM Emergency Medicine Attending Note This patient was seen and treated independently by the medical donation professional. I was present and available in the emergency department when this patient was treated. Vero Montejo MD Dulce [facility] ED eMERGENCY dEPARTMENT eNCOUnter Pt Name: Kathya [...] ? TREVER (acute kidney injury) ([facility]) ? Alcohol abuse 07/08/2018 ? Anxiety ? Depression ? Fall 06/2018 ? Schizophrenia ([facility]) SURGICALHISTORY Past Surgical History: Procedure [...] Strain: ? (more content not included)... Normal [facility] [place] GI TUBE EVALUATION W CONT RASTOrdered By: Helen Toledo on 10-30-2020 Patient Name: KATHYA HOOPER Fluoroscopy ACCESSION EXAM DATE/TIME PROCEDURE ORDERING PROVIDER [id number] 10/30/2020 15:07 EDT RF Intro Long GI Tube w/ KRISTA TOLEDO, HELEN Rojas CPT code 60040 Reason For Exam (RF Intro Long GI [...] [facility] Incoming Radiology Results From [facility] - 10/30/2020 4:07 PM EDT Patient Name: KATHYA HOOPER Fluoroscopy ACCESSION EXAM DATE/TIME PROCEDURE ORDERING PROVIDER [id number] 10/30/2020 15:07 EDT RF Intro Long GI Tube w/ KRISTA TOLEDO AMY L Fluoro CPT code 58835 Reason For Exam (RF Intro Long GI [...] Tube w/ Fluoro Patient [facility]: [facility] [id number] Fluoroscopy ACCESSION EXAM DATE/TIME PROCEDURE ORDERING PROVIDER [id number] 10/30/2020 15:07 EDT RF Intro Long GI Tube w/ KRISTA TOLEDO, HELEN [place] [facility] CPT code 43623 Reason For Exam (RF Intro Long GI [...] J Transcribed Date and Time: 10/30/2020 4:06 [facility] ED Provider Noteon ED Provider Note [facility] ED EMERGENCY DEPARTMENT ENCOUNTER Pt [...] Gatherings with Friends and Family: ? Attends Zoroastrianism Services: ? Active Member of Clubs or [...] Soft, non-distended (more content not included)... Normal [facility] FL GI TUBE EVALUATION W CONT RASTOrdered By: Elizabeth Moura on 09-22-2020 Patient Name: KATHYA HOOPER Fluoroscopy ACCESSION EXAM DATE/TIME PROCEDURE ORDERING PROVIDER [id number] 09/22/2020 04:09 EDT RF Intro Long GI Tube w/ 5816 ELIZABETH BARBER CPT code 86002 Reason For Exam (RF Intro Long GI [...] Date and Time: 09/22/2020 5:11 [facility] Work Phone: [facility], [facility] Incoming Radiology Results From [facility] - 09/22/2020 5:11 AM EDT Patient Name: KATHYA HOOPER Fluoroscopy ACCESSION EXAM DATE/TIME PROCEDURE ORDERING PROVIDER [id number] 09/22/2020 04:09 EDT RF Intro Long GI Tube w/ 58ELIZABETH LU CPT code 54296 Reason For Exam (RF Intro Long GI [...] Date and Time: 09/22/2020 5:11 [facility] Work Phone: [facility] Work Phone: RF Intro Long GI Tube w/ Flu oroon 09-22-2020 RF Intro Long GI Tube w/ Fluoro Patient Name: KATHYA HOOPER Fluoroscopy ACCESSION EXAM DATE/TIME PROCEDURE ORDERING PROVIDER [id number] 09/22/2020 04:09 EDT RF Intro Long GI Tube w/ 5816 -ELIZABETH MOURA CPT code 45325 Reason For Exam (RF Intro Long GI [...] JEFFREY Transcribed Date and Time: 09/22/2020 5:11 [facility] ED Provider Noteon ED Provider [...] otherwise acutely negative except as in the [place] YAQUI. PAST MEDICAL HISTORY Past Medical History: Diagnosis Date ? TREVER (acute kidney injury) ([facility]) ? Alcohol abuse 07/08/2018 ? [...] (AQUAPHOR) ointment Apply topically as needed. Balsam [place] Oil (VENELEX) OINT ointment Apply topically every [...] file Gets together: Not on file Attends druze service: Not on file Active member of [...] for level (more content not included)... Normal [facility] [place] GI TUBE EVALUATION W CONT [facility] 06-26-2020 Patient Name: KATHYA HOOPER Fluoroscopy ACCESSION EXAM DATE/TIME PROCEDURE ORDERING PROVIDER [id number] 06/26/2020 20:20 EST RF Intro Long GI Tube w/ 450439 -ABELARDO RIOS CPT code 88934 Reason For Exam (RF Intro Long GI [...] B Transcribed Date and Time: 06/26/2020 9:16 [facility] Work Phone: [place], [facility] Incoming Radiology Results From [facility] - 06/26/2020 9:16 PM EST Patient Name: KATHYA HOOPER Fluoroscopy ACCESSION EXAM DATE/TIME PROCEDURE ORDERING PROVIDER [id number] 06/26/2020 20:20 EST RF Intro Long GI Tube w/ 577022 -ABELARDO RIOS CPT code 80158 Reason For Exam (RF Intro Long GI [...] Fluoroscopy ACCESSION EXAM DATE/TIME PROCEDURE ORDERING PROVIDER [id number] 06/26/2020 20:20 EST RF Intro Long GI Tube w/ 770118 -ABELARDO RIOS CPT code 19936 Reason For Exam (RF Intro Long GI [...] mL of contrast was administered by Dr. iRos through a PEG tube. I was not present for the examination. Contrast is noted within the stomach and duodenum. There is no evidence of extravasation of contrast. Report Dictated on Final Dictating Physician: MD HOLDER LAUREN B Signed Date and Time: 06/26/2020 9:15 pm Signed by: MD HOLDER LAUREN B Transcribed Date and Time: 06/26/2020 9:16 Normal [facility] Clinical Summary: HMSPatient IDon 05-22-2019 WOP [facility] Work Phone: Office Visit: New - 1st visi t with practice, Rm: 2on 05-22-2019 NEGATED: Highlighted rowCT scan history of the right lower extremity on 05/16/2019 at [facility] Work Phone: NEGATED: Highlighted rowTobacco smoking status NHIS current someday smoker [facility] Work Phone: NEGATED: Highlighted rowxray history of the pelvis [facility] the [facility] Work Phone: CT LOWER EXTREMITY RIGHT WO CONTRASTOrdered By: Elizabeth Moura on 05-16-2019 Patient Name: KATHYA HOOPER ---CT--- Exam Date/Time 05/16/2019 21:10:[address] Low Ext w/o Contrast Right Ordering Physician ZakHayley JoesphZENY ELIZABETH Accession Number [id number] CPT4 Codes 41051 () Reason For Exam right hip pain, [...] Date and Time: 05/16/2019 9:24 [facility] Work Phone: [facility], [facility] Incoming Radiology Results From [facility] - 05/16/2019 9:24 PM EST Patient Name: KATHYA HOOPER ---CT--- Exam Date/Time 05/16/2019 21:10:[address] Low Ext w/o Contrast Right Ordering Physician Dylon PinkZENYELIZABETH LI Accession Number [id number] CPT4 Codes 00764 () Reason For Exam right hip pain, [...] Date and Time: 05/16/2019 9:24 [facility] Work Phone: Differential,Body Fluidson 0 09-27-2018 Other Cells 46 % Normal [facility] Comment on above: Result Comment: Bloo dy specimen with reactive mesothelial cells and chronic inflammation with occasional hemophagocytosis. 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 [address] CULTURE AND STAIN - FLUIDon 09-25-2018 CULTURE AND STAIN - FLUID CULTURE & STAIN - FLUID --> Status: F No growth at 5 days. STAIN GRAM --> Status: F Moderate polymorphonuclear cells/lpf. Moderate mononuclear cells/lpf No organisms seen. Cytocentrifugation performed. Moderate mononuclear cells/lpf No organisms seen. Cytocentrifugation performed. Normal [facility] Comment on above: Performed By: #### H EMDF, PT, BMP3M, PHOS3, MG3, CK3 #### [place] [address] [place], [place] #### VD25H #### [facility] [address] [place] [address] Cell Count,Body Fluidon 05- Nucleated Cells 2391 {cells}/uL Normal [facility] Comment on above: Performed By: #### H EMDF, PT, BMP3M, PHOS3, MG3, CK3 #### [facility] [address] [place], [place] #### VD25H #### [facility] [address] [place] [address] [place] [address] {RBC}/uL Normal [facility] Comment on above: Performed By: #### H EMDF, PT, BMP3M, PHOS3, MG3, CK3 #### [place] [address] [address] [place], [place] #### VD25H #### [facility] [address] [place] [address] Fluid Type Thoracentesis Normal [facility] Comment on above: Performed By: #### H EMDF, PT, BMP3M, PHOS3, MG3, CK3 #### [place] [address] [address] [place], [place] #### VD25H #### [facility] [address] [place] [address] Differential,Body Fluidson 0 09-25-2018 Lymphocytes/100 WBC (Bld) 28 % Normal [facility] Comment on above: Performed By: #### H EMDF, PT, BMP3M, PHOS3, MG3, CK3 #### [place] [address] [address] [place] #### VD25H #### [facility] [address] [place] [address] Monocytes/100 WBC (Bld) 1 % Normal [facility] Comment on above: Performed By: #### H EMDF, PT, BMP3M, PHOS3, MG3, CK3 #### [place] [address] [address] [place] #### VD25H #### [facility] [address] [place] [address] Neutrophils/100 WBC (Bld) 25 % Normal [facility] Comment on above: Performed By: #### H EMDF, PT, BMP3M, PHOS3, MG3, CK3 #### [place] [address] [address] [place] #### VD25H #### [facility] [address] [place] [address] Cells Counted for Diff 100 Normal [facility] Comment on above: Performed By: #### H EMDF, PT, BMP3M, PHOS3, MG3, CK3 #### [place] [address] [address] [place] #### VD25H #### [facility] [address] [place] [address] LDH, Body Fluidon 09-25-2018 LDH, Body Fluid 174 U/L Normal No [facility] Comment on above: Performed By: #### H EMDF, PT, BMP3M, PHOS3, MG3, CK3 #### [facility] [address] [place] [address] #### VD25H #### [facility] [address] [place] [address] Protein, Total Body Fluidon 09-25-2018 Protein,Total-Body Fld 3.4 g/dL Normal No [facility] Comment on above: Performed By: #### H EMDF, PT, BMP3M, PHOS3, MG3, CK3 #### [facility] [address] [place] [address] #### VD25H #### [facility] [address] [place] [address] US Thora-Aspir Pleura w/ Evelin geon 09-25-2018 US Thora-Aspir Pleura w/ Image Patient Name: KATHYA HOOPER Ultrasound Exam Date/Time 09/25/2018 13:23:41 EDT Exam US Thora-Aspir Pleura w/ Image Ordering Physician SALO DAVIS Accession Number [id number] CPT4 Codes 92854 () Reason For Exam pleural effusion Report [...] Transcribed Date and Time: 09/25/2018 3:07 Normal [facility] CULTURE MYCOBACTERIAon 09-03 CULTURE MYCOBACTERIA CULTURE MYCOBACTERI A --> Status: F No acid-fast bacilli isolated after 6 weeks incubation. [facility] Comment on above: Performed By: #### H EMDF, PT, BMP3M, PHOS3, MG3, CK3 #### [facility] [employer] [facility] [address] [place] [address] #### VD25H #### [facility] [address] [place] [address] CULTURE URINEon 08-23-2018 CULTURE URINE CULTURE URINE --> Status: F No growth (<1,000 CFU/ml). Normal [facility] Comment on above: Order Comment: Speci men Source Comment:Urine, clean catch Performed By: #### H EMDF, PT, BMP3M, PHOS3, MG3, CK3 #### [facility] [employer] [facility] [address] [place] [address] #### VD25H #### [facility] [employer] [facility] [address] [place] [address] CR Chest Portableon 08-23-19 19 CR Chest Portable Patient Name: KATHYA HOOPER Diagnostic Radiology Exam Date/Time 08/22/2018 07:07:07 EDT Exam CR Chest Portable Ordering Physician HIRAM ONEIL Accession Number [id number] CPT4 Codes 72678 () Reason For Exam dyspnea Report Portable [...] Transcribed Date and Time: 08/22/2018 7:31 Normal [facility] [employer] [facility] Glucose,Bedsideon 08-22-2018 Glucose mass conc 127 mg/dL High 70-100 [facility] [facility] Comment on above: Result Comment: Test performed by glucose meter. Results may be 10%-15% lower than serum/plasma values. (CLIA ID [id number]) Performed By: #### H EMDF, PT, BMP3M, PHOS3, MG3, CK3 #### [employer] [facility] [address] [place], [place] #### VD25H #### [facility] [address] [place] [address] Urinalysis,Macroon 9 Appearance Nom (U) clear Normal Clear [facility] [employer] Comment on above: Performed By: #### H EMDF, PT, BMP3M, PHOS3, MG3, CK3 #### [facility] [address] [place], [place] #### VD25H #### [facility] [address] [place] [address] Bilirubin,Ur Negative Normal Negative [facility] [employer] Comment on above: Performed By: #### H EMDF, PT, BMP3M, PHOS3, MG3, CK3 #### [facility] [address] [place], [place] #### VD25H #### [employer] [address] [place] [address] Color Nom (U) dk.yel Normal Lt. Yellow [facility] Comment on above: Performed By: #### H EMDF, PT, BMP3M, PHOS3, MG3, CK3 #### [facility] [address] [place], [place] #### VD25H #### [facility] [address] [place] [address] Glucose Ql (U) NORM Normal Negative [facility] Comment on above: Performed By: #### H EMDF, PT, BMP3M, PHOS3, MG3, CK3 #### [address] #### VD25H #### [facility] [address] [place] [address] Ketone,Urine Negative Normal Negative [facility] Comment on above: Performed By: #### H EMDF, PT, BMP3M, PHOS3, MG3, CK3 #### [address] #### VD25H #### [facility] [address] [place] [address] Nitrite Ql (U) Negative Normal Negative [facility] Comment on above: Performed By: #### H EMDF, PT, BMP3M, PHOS3, MG3, CK3 #### [address] #### VD25H #### [facility] [address] [place] [address] Occult Blood,Ur Negative Normal Negative [facility] Comment on above: Performed By: #### H EMDF, PT, BMP3M, PHOS3, MG3, CK3 #### [address] #### VD25H #### [facility] [address] [place] [address] pH (U) 8.0 Normal 5.0-8.0 [facility] Comment on above: Performed By: #### H EMDF, PT, BMP3M, PHOS3, MG3, CK3 #### [place] [address] [place], [place] #### VD25H #### [facility] [address] [place] [address] Protein mass conc (U) Negative Normal Negative [facility] Comment on above: Performed By: #### H EMDF, PT, BMP3M, PHOS3, MG3, CK3 #### [place] [address] [place] #### VD25H #### [place] [address] [place] [address] Specific [place],Urine 1.015 Normal 1.005-1.030 [facility] Comment on above: Performed By: #### H EMDF, PT, BMP3M, PHOS3, MG3, CK3 #### [address] #### VD25H #### [place] [address] [place] [address] Urobilinogen Qn (U) 1 mg/dL Normal 0-1 [facility] Comment on above: Performed By: #### H EMDF, PT, BMP3M, PHOS3, MG3, CK3 #### [address] #### VD25H #### [address] [place] [address] WBC #/vol (Bld) Negative Normal Negative [facility] Comment on above: Performed By: #### H EMDF, PT, BMP3M, PHOS3, MG3, CK3 #### [address] #### VD25H #### [address] [place] [address] Basic Metabolic Panelon 04-2 Calcium mass conc 7.8 mg/dL Low 8.4-10.4 [facility] Comment on above: Performed By: #### H EMDF, PT, BMP3M, PHOS3, MG3, CK3 #### [address] [place] [address] #### VD25H #### [facility] [address] [place] [address] Glucose mass conc 102 mg/dL High 70-100 [facility] Comment on above: Performed By: #### H EMDF, PT, BMP3M, PHOS3, MG3, CK3 #### [address] [place] [address] #### VD25H #### [facility] [address] [place] [address] Anion gap molar conc 0 Normal [facility] Comment on above: Performed By: #### H EMDF, PT, BMP3M, PHOS3, MG3, CK3 #### [address] #### VD25H #### [facility] [address] [place] [address] CO2 molar conc 37 mmol/L High 22-30 [facility] Comment on above: Performed By: #### H EMDF, PT, BMP3M, PHOS3, MG3, CK3 #### [address] [place] #### VD25H #### [facility] [address] [place] [address] Creatinine mass conc 0.46 mg/dL Low 0.52-1.25 [facility] Comment on above: Performed By: #### H EMDF, PT, BMP3M, PHOS3, MG3, CK3 #### [address] #### VD25H #### [facility] [address] [place] [address] GFR/1.73 sq M predicted among blacks MDRD vol rate/area (S/P/Bld) mL/min/{1.73_m2} Normal >60 [facility] Comment on above: Performed By: #### H EMDF, PT, BMP3M, PHOS3, MG3, CK3 #### [facility] [address] [facility], [place] #### VD25H #### [facility] [address] [place] [address] GFR/1.73 sq M predicted among non-blacks MDRD vol rate/area (S/P/Bld) mL/min/{1.73_m2} Normal >60 [facility] Comment on above: Result Comment: Sour ce- MDRD equation with creatinine calibration to IDMS(NKDEP) eGFR not recommended for drug dose adjustment Performed By: #### H EMDF, PT, BMP3M, PHOS3, MG3, CK3 #### [place] [address] [facility] [place] #### VD25H #### [facility] [address] [place] [address] Urea nitrogen mass conc 7 mg/dL Normal 7-20 [facility] Comment on above: Performed By: #### H EMDF, PT, BMP3M, PHOS3, MG3, CK3 #### [place] [address] [address] [facility], [place] #### VD25H #### [facility] [address] [place] [address] Potassium molar conc 3.7 mmol/L Normal 3.5-5.1 [facility] Comment on above: Performed By: #### H EMDF, PT, BMP3M, PHOS3, MG3, CK3 #### [place] [address] [facility], [place] #### VD25H #### [facility] [address] [place] [address] Chloride molar conc 101 mmol/L Normal 98-107 [facility] Comment on above: Performed By: #### H EMDF, PT, BMP3M, PHOS3, MG3, CK3 #### [place] [address] [address] [facility], [place] #### VD25H #### [facility] [address] [place] [address] Sodium molar conc 138 mmol/L Normal 135-145 [facility] Comment on above: Performed By: #### H EMDF, PT, BMP3M, PHOS3, MG3, CK3 #### [facility] [address] [place] [address] #### VD25H #### [facility] [address] [place] [address] CR Chest Portableon 08-22-19 19 CR Chest Portable Patient Name: KATHYA HOOPER Diagnostic Radiology Exam Date/Time 08/21/2018 09:46:47 EDT Exam CR Chest Portable Ordering Physician MALLORY STAPLES Accession Number [id number] CPT4 Codes 04373 () Reason For Exam edema Report PORTABLE [...] Transcribed Date and Time: 08/21/2018 11:14 Normal [facility] CULTURE ANAEROBEon 9 CULTURE ANAEROBE CULTURE ANAEROBE --> Status: F No growth of anaerobes at 5 days. Normal [facility] Comment on above: Order Comment: or co llected Performed By: #### H EMDF, PT, BMP3M, PHOS3, MG3, CK3 #### [facility] [address] [place] [address] #### VD25H #### [facility] [address] [place] [address] Glucose,Bedsideon 08-21-2018 Glucose mass conc 124 mg/dL High 70-100 [facility] Comment on above: Result Comment: Test performed by glucose meter. Results may be 10%-15% lower than serum/plasma values. (CLIA ID [id number]) Performed By: #### H EMDF, PT, BMP3M, PHOS3, MG3, CK3 #### [facility] [address] [place] [address] #### VD25H #### [facility] [address] [place] [address] Glucose mass conc 135 mg/dL High 70-100 [facility] Comment on above: Result Comment: Test performed by glucose meter. Results may be 10%-15% lower than serum/plasma values. (CLIA ID [id number]) Performed By: #### H EMDF, PT, BMP3M, PHOS3, MG3, CK3 #### [facility] [address] [place] [address] #### VD25H #### [facility] [address] [place] [address] Glucose mass conc 131 mg/dL High 70-100 [facility] Comment on above: Result Comment: Test performed by glucose meter. Results may be 10%-15% lower than serum/plasma values. (CLIA ID [id number]) Performed By: #### H EMDF, PT, BMP3M, PHOS3, MG3, CK3 #### [facility] [address] [place] [address] #### VD25H #### [facility] [address] [place] [address] Glucose mass conc 112 mg/dL High 70-100 [facility] Comment on above: Result Comment: Test performed by glucose meter. Results may be 10%-15% lower than serum/plasma values. (CLIA ID [id number]) Performed By: #### H EMDF, PT, BMP3M, PHOS3, MG3, CK3 #### [place] [address] [place] #### VD25H #### [facility] [address] [place] [address] Basic Metabolic Panelon 07-31 Anion gap molar conc 4 Normal [facility] Comment on above: Performed By: #### H EMDF, PT, BMP3M, PHOS3, MG3, CK3 #### [place] [place] #### VD25H #### [facility] [address] [place] [address] Calcium mass conc 7.6 mg/dL Low 8.4-10.4 [facility] Comment on above: Performed By: #### H EMDF, PT, BMP3M, PHOS3, MG3, CK3 #### [place] [place] #### VD25H #### [facility] [address] [place] [address] CO2 molar conc 36 mmol/L High 22-30 [facility] Comment on above: Performed By: #### H EMDF, PT, BMP3M, PHOS3, MG3, CK3 #### [place] [place] #### VD25H #### [facility] [address] [place] [address] Glucose mass conc 121 mg/dL High 70-100 [facility] Comment on above: Performed By: #### H EMDF, PT, BMP3M, PHOS3, MG3, CK3 #### [place] [address] [address] [facility], [place] #### VD25H #### [facility] [address] [place] [address] Urea nitrogen mass conc 9 mg/dL Normal 7-20 [facility] Comment on above: Performed By: #### H EMDF, PT, BMP3M, PHOS3, MG3, CK3 #### [address] [place] #### VD25H #### [facility] [address] [place] [address] Creatinine mass conc 0.51 mg/dL Low 0.52-1.25 [facility] Comment on above: Performed By: #### H EMDF, PT, BMP3M, PHOS3, MG3, CK3 #### [address] [place] #### VD25H #### [facility] [address] [place] [address] GFR/1.73 sq M predicted among blacks MDRD vol rate/area (S/P/Bld) mL/min/{1.73_m2} Normal >60 [facility] Comment on above: Performed By: #### H EMDF, PT, BMP3M, PHOS3, MG3, CK3 #### [address] #### VD25H #### [facility] [address] [place] [address] GFR/1.73 sq M predicted among non-blacks MDRD vol rate/area (S/P/Bld) mL/min/{1.73_m2} Normal >60 [facility] Comment on above: Result Comment: Sour ce- MDRD equation with creatinine calibration to IDMS(NKDEP) eGFR not recommended for drug dose adjustment Performed By: #### H EMDF, PT, BMP3M, PHOS3, MG3, CK3 #### [address] #### VD25H #### [facility] [address] [place] [address] Chloride molar conc 100 mmol/L Normal 98-107 [facility] Comment on above: Performed By: #### H EMDF, PT, BMP3M, PHOS3, MG3, CK3 #### [address] #### VD25H #### [facility] [address] [place] [address] Potassium molar conc 3.3 mmol/L Low 3.5-5.1 [facility] Comment on above: Performed By: #### H EMDF, PT, BMP3M, PHOS3, MG3, CK3 #### [address] [address] [place], [place] #### VD25H #### [facility] [address] [place] [address] Sodium molar conc 140 mmol/L Normal 135-145 [facility] Comment on above: Performed By: #### H EMDF, PT, BMP3M, PHOS3, MG3, CK3 #### [address] #### VD25H #### [facility] [address] [place] [address] Glucose,Bedsideon 08-20-2018 Glucose mass conc 121 mg/dL High 70-100 [facility] Comment on above: Result Comment: Test performed by glucose meter. Results may be 10%-15% lower than serum/plasma values. (CLIA ID [id number]) Performed By: #### H EMDF, PT, BMP3M, PHOS3, MG3, CK3 #### [address] #### VD25H #### [facility] [address] [place] [address] Glucose mass conc 127 mg/dL High 70-100 [facility] Comment on above: Result Comment: Test performed by glucose meter. Results may be 10%-15% lower than serum/plasma values. (CLIA ID [id number]) Performed By: #### H EMDF, PT, BMP3M, PHOS3, MG3, CK3 #### [address] #### VD25H #### [facility] [address] [place] [address] Hep A Abs, Totalon 9 Hep A Abs, Total Negative Normal Negative [facility] Comment on above: Result Comment: Perf ormed by [employer], [address], [facility] [id number] [email or web address] MD - Lab. Director Performed By: #### H EMDF, PT, BMP3M, PHOS3, MG3, CK3 #### [facility] [address] [place] #### VD25H #### [facility] [address] [place] [address] Basic Metabolic Panelon 07-31 Anion gap molar conc 1 Normal [facility] Comment on above: Performed By: #### H EMDF, PT, BMP3M, PHOS3, MG3, CK3 #### [address] [address] [place], [place] #### VD25H #### [facility] [address] [place] [address] Calcium mass conc 7.6 mg/dL Low 8.4-10.4 [facility] Comment on above: Performed By: #### H EMDF, PT, BMP3M, PHOS3, MG3, CK3 #### [address] [address] [place], [place] #### VD25H #### [facility] [address] [place] [address] CO2 molar conc 33 mmol/L High 22-30 [facility] Comment on above: Performed By: #### H EMDF, PT, BMP3M, PHOS3, MG3, CK3 #### [address] [address] [place], [place] #### VD25H #### [facility] [address] [place] [address] Glucose mass conc 139 mg/dL High 70-100 [facility] Comment on above: Performed By: #### H EMDF, PT, BMP3M, PHOS3, MG3, CK3 #### [address] [address] [place], [place] #### VD25H #### [facility] [address] [place] [address] Urea nitrogen mass conc 10 mg/dL Normal 7-20 [facility] Comment on above: Performed By: #### H EMDF, PT, BMP3M, PHOS3, MG3, CK3 #### [place] [address] [place] #### VD25H #### [facility] [address] [place] [address] Creatinine mass conc 0.57 mg/dL Normal 0.52-1.25 [facility] Comment on above: Performed By: #### H EMDF, PT, BMP3M, PHOS3, MG3, CK3 #### [place] [address] [place] #### VD25H #### [place] [address] [place] [address] GFR/1.73 sq M predicted among blacks MDRD vol rate/area (S/P/Bld) mL/min/{1.73_m2} Normal >60 [facility] Comment on above: Performed By: #### H EMDF, PT, BMP3M, PHOS3, MG3, CK3 #### [place] [place] #### VD25H #### [facility] [address] [place] [address] GFR/1.73 sq M predicted among non-blacks MDRD vol rate/area (S/P/Bld) mL/min/{1.73_m2} Normal >60 [facility] Comment on above: Result Comment: Sour ce- MDRD equation with creatinine calibration to IDMS(NKDEP) eGFR not recommended for drug dose adjustment Performed By: #### H EMDF, PT, BMP3M, PHOS3, MG3, CK3 #### [address] [place] #### VD25H #### [facility] [address] [place] [address] Potassium molar conc 3.4 mmol/L Low 3.5-5.1 [facility] Comment on above: Performed By: #### H EMDF, PT, BMP3M, PHOS3, MG3, CK3 #### [facility] [address] [place] [address] #### VD25H #### [facility] [address] [place] [address] Chloride molar conc 104 mmol/L Normal 98-107 [facility] Comment on above: Performed By: #### H EMDF, PT, BMP3M, PHOS3, MG3, CK3 #### [facility] [address] [place] [address] #### VD25H #### [facility] [address] [place] [address] Sodium molar conc 138 mmol/L Normal 135-145 [facility] Comment on above: Performed By: #### H EMDF, PT, BMP3M, PHOS3, MG3, CK3 #### [facility] [address] [place] #### VD25H #### [facility] [address] [place] [address] CULT./ST. BACTERIAon 08-19-2 019 CULT./ST. BACTERIA STAIN GRAM --> Status: [...] 0.12 S Vancomycin(CHRISTI) = 1 S Normal [facility] Comment on above: Order Comment: or co llected Performed By: #### H EMDF, PT, BMP3M, PHOS3, MG3, CK3 #### [facility] [address] [place] [address] #### VD25H #### [facility] [address] [place] [address] Basic Metabolic Panelon 04-2 Calcium mass conc 7.8 mg/dL Low 8.4-10.4 [facility] Comment on above: Performed By: #### H EMDF, PT, BMP3M, PHOS3, MG3, CK3 #### [facility] [address] [place] [address] #### VD25H #### [facility] [address] [place] [address] Glucose mass conc 104 mg/dL High 70-100 [facility] Comment on above: Performed By: #### H EMDF, PT, BMP3M, PHOS3, MG3, CK3 #### [place] [address] [place] [address] #### VD25H #### [facility] [address] [place] [address] Urea nitrogen mass conc 12 mg/dL Normal 7-20 [facility] Comment on above: Performed By: #### H EMDF, PT, BMP3M, PHOS3, MG3, CK3 #### [address] [place] [address] #### VD25H #### [facility] [address] [place] [address] Anion gap molar conc 5 Normal [facility] Comment on above: Performed By: #### H EMDF, PT, BMP3M, PHOS3, MG3, CK3 #### [place] [address] [place] #### VD25H #### [facility] [address] [place] [address] CO2 molar conc 26 mmol/L Normal 22-30 [facility] Comment on above: Performed By: #### H EMDF, PT, BMP3M, PHOS3, MG3, CK3 #### [place] [address] [place] #### VD25H #### [facility] [address] [place] [address] Creatinine mass conc 0.61 mg/dL Normal 0.52-1.25 [facility] Comment on above: Performed By: #### H EMDF, PT, BMP3M, PHOS3, MG3, CK3 #### [address] [place] [address] #### VD25H #### [facility] [address] [place] [address] GFR/1.73 sq M predicted among blacks MDRD vol rate/area (S/P/Bld) mL/min/{1.73_m2} Normal >60 [facility] Comment on above: Performed By: #### H EMDF, PT, BMP3M, PHOS3, MG3, CK3 #### [facility] [address] [place] #### VD25H #### [facility] [address] [place] [address] GFR/1.73 sq M predicted among non-blacks MDRD vol rate/area (S/P/Bld) mL/min/{1.73_m2} Normal >60 [facility] Comment on above: Result Comment: Sour ce- MDRD equation with creatinine calibration to IDMS(NKDEP) eGFR not recommended for drug dose adjustment Performed By: #### H EMDF, PT, BMP3M, PHOS3, MG3, CK3 #### [address] [place] #### VD25H #### [facility] [address] [place] [address] Chloride molar conc 107 mmol/L Normal 98-107 [facility] Comment on above: Performed By: #### H EMDF, PT, BMP3M, PHOS3, MG3, CK3 #### [address] [place] #### VD25H #### [facility] [address] [place] [address] Potassium molar conc 3.4 mmol/L Low 3.5-5.1 [facility] Comment on above: Performed By: #### H EMDF, PT, BMP3M, PHOS3, MG3, CK3 #### [address] [place] #### VD25H #### [facility] [address] [place] [address] Sodium molar conc 138 mmol/L Normal 135-145 [facility] Comment on above: Performed By: #### H EMDF, PT, BMP3M, PHOS3, MG3, CK3 #### [address] [address] [place] #### VD25H #### [facility] [address] [place] [address] Glucose,Bedsideon 08-18-2018 Glucose mass conc 113 mg/dL High 70-100 [facility] Comment on above: Result Comment: Test performed by glucose meter. Results may be 10%-15% lower than serum/plasma values. (CLIA ID [id number]) Performed By: #### H EMDF, PT, BMP3M, PHOS3, MG3, CK3 #### [address] #### VD25H #### [place] [address] [place] [address] Hemogram w/ Autodiffon 08-18 Erythrocyte distribution width Ratio (RBC) 14.4 % Normal 11.5-14.5 [facility] Comment on above: Performed By: #### H EMDF, PT, BMP3M, PHOS3, MG3, CK3 #### [address] #### VD25H #### [place] [address] [place] [address] Hematocrit Volume Fraction (Bld) 29.3 % Low 40.0-52.0 [facility] Comment on above: Performed By: #### H EMDF, PT, BMP3M, PHOS3, MG3, CK3 #### [address] #### VD25H #### [place] [address] [place] [address] Hemoglobin mass conc (Bld) 9.8 g/dL Low 13.0-18.0 [facility] Comment on above: Performed By: #### H EMDF, PT, BMP3M, PHOS3, MG3, CK3 #### [address] #### VD25H #### [place] [address] [place] [address] MCH Entitic mass (RBC) 28.0 pg Normal 26.0-34.0 [facility] Comment on above: Performed By: #### H EMDF, PT, BMP3M, PHOS3, MG3, CK3 #### [place] [address] [place] #### VD25H #### [facility] [address] [place] [address] MCHC mass conc (RBC) 33.4 % Normal 32.0-36.0 [facility] Comment on above: Performed By: #### H EMDF, PT, BMP3M, PHOS3, MG3, CK3 #### [address] [place] #### VD25H #### [facility] [address] [place] [address] MCV Entitic volume (RBC) 84.1 fL Normal 80.0-98.0 [facility] Comment on above: Performed By: #### H EMDF, PT, BMP3M, PHOS3, MG3, CK3 #### [place] [place] #### VD25H #### [facility] [address] [place] [address] Platelet mean volume Entitic volume (Bld) 7.9 fL Normal 7.4-10.4 [facility] Comment on above: Performed By: #### H EMDF, PT, BMP3M, PHOS3, MG3, CK3 #### [place] [address] [place] #### VD25H #### [facility] [address] [place] [address] Platelets #/vol (Bld) 301 10*3/uL Normal 140-440 [facility] Comment on above: Performed By: #### H EMDF, PT, BMP3M, PHOS3, MG3, CK3 #### [address] #### VD25H #### [facility] [address] [place] [address] RBC #/vol (Bld) 3.49 10*6/uL Low 4.40-5.90 [facility] Comment on above: Performed By: #### H EMDF, PT, BMP3M, PHOS3, MG3, CK3 #### [place] [address] [place] #### VD25H #### [facility] [address] [place] [address] WBC #/vol (Bld) 8.3 10*3/uL Normal 3.6-10.7 [facility] Comment on above: Performed By: #### H EMDF, PT, BMP3M, PHOS3, MG3, CK3 #### [address] #### VD25H #### [facility] [address] [place] [address] Magnesiumon 08-18-2018 Magnesium mass conc 2.0 mg/dL Normal 1.6-2.3 [facility] Comment on above: Performed By: #### H EMDF, PT, BMP3M, PHOS3, MG3, CK3 #### [address] #### VD25H #### [facility] [address] [place] [address] Manual Diffon 08-18-2018 Abs Neutrophile Cnt 5.1 10*3/uL Normal 2.2-8.2 [facility] Comment on above: Performed By: #### H EMDF, PT, BMP3M, PHOS3, MG3, CK3 #### [address] #### VD25H #### [facility] [address] [place] [address] Bands 3 % Normal 0-3 [facility] Comment on above: Performed By: #### H EMDF, PT, BMP3M, PHOS3, MG3, CK3 #### [address] #### VD25H #### [facility] [address] [place] [address] Eosinophils #/vol (Bld) 0.2 10*3/uL Normal 0.0-0.5 [facility] Comment on above: Performed By: #### H EMDF, PT, BMP3M, PHOS3, MG3, CK3 #### [facility] [address] [place] #### VD25H #### [facility] [address] [place] [address] Eosinophils/100 WBC (Bld) 2 % Normal 1-6 [facility] Comment on above: Performed By: #### H EMDF, PT, BMP3M, PHOS3, MG3, CK3 #### [address] #### VD25H #### [facility] [address] [place] [address] Lymphocytes #/vol (Bld) 2.1 10*3/uL Normal 1.1-4.5 [facility] Comment on above: Performed By: #### H EMDF, PT, BMP3M, PHOS3, MG3, CK3 #### [address] #### VD25H #### [facility] [address] [place] [address] Lymphocytes/100 WBC (Bld) 25 % Normal 20-40 [facility] Comment on above: Performed By: #### H EMDF, PT, BMP3M, PHOS3, MG3, CK3 #### [facility] [address] [place] #### VD25H #### [facility] [address] [place] [address] Metamyelocytes 1 % Abnormal <1 [facility] Comment on above: Performed By: #### H EMDF, PT, BMP3M, PHOS3, MG3, CK3 #### [address] #### VD25H #### [facility] [address] [place] [address] Monocytes #/vol (Bld) 0.6 10*3/uL Normal 0.2-1.1 [facility] Comment on above: Performed By: #### H EMDF, PT, BMP3M, PHOS3, MG3, CK3 #### [facility] [address] [place] #### VD25H #### [facility] [address] [place] [address] Monocytes/100 WBC (Bld) 7 % Normal 2-10 [facility] Comment on above: Performed By: #### H EMDF, PT, BMP3M, PHOS3, MG3, CK3 #### [address] #### VD25H #### [facility] [address] [place] [address] Myelocytes 1 % Abnormal <1 [facility] Comment on above: Performed By: #### H EMDF, PT, BMP3M, PHOS3, MG3, CK3 #### [address] #### VD25H #### [facility] [address] [place] [address] Protein mass conc 2 % Abnormal <1 [facility] Comment on above: Performed By: #### H EMDF, PT, BMP3M, PHOS3, MG3, CK3 #### [address] #### VD25H #### [facility] [address] [place] [address] RBC morphology finding Nom (Bld) See Prev Normal [facility] Comment on above: Performed By: #### H EMDF, PT, BMP3M, PHOS3, MG3, CK3 #### [address] #### VD25H #### [facility] [address] [place] [address] Seg Neutrophils 59 % Normal 40-80 [facility] Comment on above: Performed By: #### H EMDF, PT, BMP3M, PHOS3, MG3, CK3 #### [facility] [address] [place], [place] #### VD25H #### [facility] [address] [place] [address] Abs Baso Cnt 0.0 10*3/uL Normal 0.0-0.2 [facility] Comment on above: Performed By: #### H EMDF, PT, BMP3M, PHOS3, MG3, CK3 #### [place] [address] [place], [place] #### VD25H #### [facility] [address] [place] [address] Basophils/100 WBC (Bld) 0 % Normal 0-2 [facility] Comment on above: Performed By: #### H EMDF, PT, BMP3M, PHOS3, MG3, CK3 #### [place] [address] [place] #### VD25H #### [facility] [address] [place] [address] Cells counted 100 Normal [facility] Comment on above: Performed By: #### H EMDF, PT, BMP3M, PHOS3, MG3, CK3 #### [place] [address] [place] #### VD25H #### [facility] [address] [place] [address] Phosphoruson 08-18-2018 Phosphate mass conc 4.6 mg/dL High 2.5-4.5 [facility] Comment on above: Performed By: #### H EMDF, PT, BMP3M, PHOS3, MG3, CK3 #### [place] [address] [place] #### VD25H #### [facility] [address] [place] [address] Basic Metabolic Panelon 07-30 Calcium mass conc 7.7 mg/dL Low 8.4-10.4 [facility] Comment on above: Performed By: #### H EMDF, PT, BMP3M, PHOS3, MG3, CK3 #### [address] [place], [place] #### VD25H #### [facility] [address] [place] [address] Anion gap molar conc 7 Normal [facility] Comment on above: Performed By: #### H EMDF, PT, BMP3M, PHOS3, MG3, CK3 #### [address] #### VD25H #### [facility] [address] [place] [address] CO2 molar conc 25 mmol/L Normal 22-30 [facility] Comment on above: Performed By: #### H EMDF, PT, BMP3M, PHOS3, MG3, CK3 #### [address] #### VD25H #### [facility] [address] [place] [address] Creatinine mass conc 0.59 mg/dL Normal 0.52-1.25 [facility] Comment on above: Performed By: #### H EMDF, PT, BMP3M, PHOS3, MG3, CK3 #### [address] #### VD25H #### [facility] [address] [place] [address] GFR/1.73 sq M predicted among blacks MDRD vol rate/area (S/P/Bld) mL/min/{1.73_m2} Normal >60 [facility] Comment on above: Performed By: #### H EMDF, PT, BMP3M, PHOS3, MG3, CK3 #### [address] [place] #### VD25H #### [facility] [address] [place] [address] GFR/1.73 sq M predicted among non-blacks MDRD vol rate/area (S/P/Bld) mL/min/{1.73_m2} Normal >60 [facility] Comment on above: Result Comment: Sour ce- MDRD equation with creatinine calibration to IDMS(NKDEP) eGFR not recommended for drug dose adjustment Performed By: #### H EMDF, PT, BMP3M, PHOS3, MG3, CK3 #### [place] [place] #### VD25H #### [facility] [address] [place] [address] Glucose mass conc 116 mg/dL High 70-100 [facility] Comment on above: Performed By: #### H EMDF, PT, BMP3M, PHOS3, MG3, CK3 #### [address] #### VD25H #### [facility] [address] [place] [address] Urea nitrogen mass conc 12 mg/dL Normal 7-20 [facility] Comment on above: Performed By: #### H EMDF, PT, BMP3M, PHOS3, MG3, CK3 #### [address] [address] [place], [place] #### VD25H #### [facility] [address] [place] [address] Potassium molar conc 3.2 mmol/L Low 3.5-5.1 [facility] Comment on above: Performed By: #### H EMDF, PT, BMP3M, PHOS3, MG3, CK3 #### [place] [address] [place] #### VD25H #### [facility] [address] [place] [address] Sodium molar conc 138 mmol/L Normal 135-145 [facility] Comment on above: Performed By: #### H EMDF, PT, BMP3M, PHOS3, MG3, CK3 #### [address] [address] [place], [place] #### VD25H #### [facility] [address] [place] [address] Chloride molar conc 106 mmol/L Normal 98-107 [facility] Comment on above: Performed By: #### H EMDF, PT, BMP3M, PHOS3, MG3, CK3 #### [facility] [address] [place] [address] #### VD25H #### [facility] [address] [place] [address] CR Chest Portableon 08-18-19 CR Chest Portable Patient Name: KATHYA HOOPER Diagnostic Radiology Exam Date/Time 08/17/2018 17:54:46 EDT Exam CR Chest Portable Ordering Physician SALO DAVIS Accession Number [id number] CPT4 Codes 61726 () Reason For Exam line placement Report [...] Transcribed Date and Time: 08/17/2018 6:05 Normal [facility] CR Chest Portable Patient Name: KATHYA HOOPER Diagnostic Radiology Exam Date/Time 08/17/2018 06:11:03 EDT Exam CR Chest Portable Ordering Physician ETIENNE VELÁSQUEZ TIMOTHY Julissa Accession Number [id number] CPT4 Codes 25613 () Reason For Exam follow left pleural [...] Transcribed Date and Time: 08/17/2018 7:16 Normal [facility] Ferritinon 08-17-2018 Ferritin mass conc 1100 ng/mL High 18-464 [facility] Comment on above: Performed By: #### H EMDF, PT, BMP3M, PHOS3, MG3, CK3 #### [facility] [address] [place] [address] #### VD25H #### [facility] [address] [place] [address] Folateon 08-17-2018 Folate 15.1 ng/mL Normal 2.8-20.0 [facility] Comment on above: Performed By: #### H EMDF, PT, BMP3M, PHOS3, MG3, CK3 #### [facility] [address] [place] [address] #### VD25H #### [facility] [address] [place] [address] Glucose,Bedsideon 08-17-2018 Glucose mass conc 133 mg/dL High 70-100 [facility] Comment on above: Result Comment: Test performed by glucose meter. Results may be 10%-15% lower than serum/plasma values. (CLIA ID [id number]) Performed By: #### H EMDF, PT, BMP3M, PHOS3, MG3, CK3 #### [address] #### VD25H #### [facility] [address] [place] [address] Hemoglobin A1Con 08-17-2018 Hemoglobin A1c/Hemoglobin.total mass fraction (Bld) 117 mg/dL Normal [facility] Comment on above: Performed By: #### H EMDF, PT, BMP3M, PHOS3, MG3, CK3 #### [address] #### VD25H #### [facility] [address] [place] [address] Hemoglobin A1c/Hemoglobin.total mass fraction (Bld) 5.7 % Normal 4.0-5.7 [facility] Comment on above: Result Comment: --Hg bA1C levels may not be accurate in patients who have renal disease, received recent blood transfusions, are anemic, or who have dyshemoglobinemia. Performed By: #### H EMDF, PT, BMP3M, PHOS3, MG3, CK3 #### [address] #### VD25H #### [facility] [address] [place] [address] Hemogram w/ Autodiffon 08-17 Erythrocyte distribution width Ratio (RBC) 14.3 % Normal 11.5-14.5 [facility] Comment on above: Performed By: #### H EMDF, PT, BMP3M, PHOS3, MG3, CK3 #### [address] #### VD25H #### [facility] [address] [place] [address] Hematocrit Volume Fraction (Bld) 29.1 % Low 40.0-52.0 [facility] Comment on above: Performed By: #### H EMDF, PT, BMP3M, PHOS3, MG3, CK3 #### [address] #### VD25H #### [place] [address] [place] [address] Hemoglobin mass conc (Bld) 9.8 g/dL Low 13.0-18.0 [facility] Comment on above: Performed By: #### H EMDF, PT, BMP3M, PHOS3, MG3, CK3 #### [address] #### VD25H #### [place] [address] [place] [address] MCH Entitic mass (RBC) 28.4 pg Normal 26.0-34.0 [facility] Comment on above: Performed By: #### H EMDF, PT, BMP3M, PHOS3, MG3, CK3 #### [address] #### VD25H #### [place] [address] [place] [address] MCHC mass conc (RBC) 33.5 % Normal 32.0-36.0 [facility] Comment on above: Performed By: #### H EMDF, PT, BMP3M, PHOS3, MG3, CK3 #### [address] #### VD25H #### [place] [address] [place] [address] MCV Entitic volume (RBC) 84.7 fL Normal 80.0-98.0 [facility] Comment on above: Performed By: #### H EMDF, PT, BMP3M, PHOS3, MG3, CK3 #### [address] #### VD25H #### [place] [address] [place] [address] Platelet mean volume Entitic volume (Bld) 8.1 fL Normal 7.4-10.4 [facility] Comment on above: Performed By: #### H EMDF, PT, BMP3M, PHOS3, MG3, CK3 #### [address] #### VD25H #### [facility] [address] [place] [address] Platelets #/vol (Bld) 281 10*3/uL Normal 140-440 [facility] Comment on above: Performed By: #### H EMDF, PT, BMP3M, PHOS3, MG3, CK3 #### [place] [address] [place] #### VD25H #### [facility] [address] [place] [address] RBC #/vol (Bld) 3.44 10*6/uL Low 4.40-5.90 [facility] Comment on above: Performed By: #### H EMDF, PT, BMP3M, PHOS3, MG3, CK3 #### [address] #### VD25H #### [facility] [address] [place] [address] WBC #/vol (Bld) 8.3 10*3/uL Normal 3.6-10.7 [facility] Comment on above: Performed By: #### H EMDF, PT, BMP3M, PHOS3, MG3, CK3 #### [address] #### VD25H #### [facility] [address] [place] [address] Hep B Surface Abon 9 Hep B Surface Ab < 8.0 Normal [facility] Comment on above: Result Comment: Inte rpretation: <8.0 Non-Reactive 8.0-11.9 Equivocal >= 12.0 Ab Detected Performed By: #### H EMDF, PT, BMP3M, PHOS3, MG3, CK3 #### [address] #### VD25H #### [facility] [address] [place] [address] Hep B Surface Agon 9 Hep B Surface Ag NOT DETECTED Normal Not-Detected [facility] Comment on above: Performed By: #### H EMDF, PT, BMP3M, PHOS3, MG3, CK3 #### [facility] [address] [place] #### VD25H #### [facility] [address] [place] [address] Hep C Antibodyon 08-17-2018 Hep C Antibody NOT DETECTED Normal Not-Detected [facility] Comment on above: Result Comment: Bharti ents with DETECTED Hepatitis C Ab results should have a new specimen submitted for supplemental testing with a Hepatitis C Quantitative RNA assay (viral load), if clinically indicated. Performed By: #### H EMDF, PT, BMP3M, PHOS3, MG3, CK3 #### [facility] [address] [place], [place] #### VD25H #### [facility] [address] [place] [address] Hepatic Functionon 9 ALP enzyme act/vol 116 U/L Normal 38-126 [facility] Comment on above: Performed By: #### H EMDF, PT, BMP3M, PHOS3, MG3, CK3 #### [facility] [address] [place] #### VD25H #### [facility] [address] [place] [address] ALT enzyme act/vol 370 U/L High 13-69 [facility] Comment on above: Performed By: #### H EMDF, PT, BMP3M, PHOS3, MG3, CK3 #### [facility] [address] [place] #### VD25H #### [facility] [address] [place] [address] AST enzyme act/vol 150 U/L High 15-46 [facility] Comment on above: Performed By: #### H EMDF, PT, BMP3M, PHOS3, MG3, CK3 #### [facility] [address] [place], [place] #### VD25H #### [facility] [address] [place] [address] Bilirubin mass conc 0.7 mg/dL Normal 0.2-1.3 [facility] Comment on above: Performed By: #### H EMDF, PT, BMP3M, PHOS3, MG3, CK3 #### [place] [place] #### VD25H #### [facility] [address] [place] [address] Bilirubin.direct mass conc 0.0 mg/dL Normal 0.0-0.3 [facility] Comment on above: Performed By: #### H EMDF, PT, BMP3M, PHOS3, MG3, CK3 #### [address] [place] #### VD25H #### [facility] [address] [place] [address] Protein mass conc 5.4 g/dL Low 6.3-8.2 [facility] Comment on above: Performed By: #### H EMDF, PT, BMP3M, PHOS3, MG3, CK3 #### [address] #### VD25H #### [facility] [address] [place] [address] Albumin mass conc 2.5 g/dL Low 3.5-5.0 [facility] Comment on above: Performed By: #### H EMDF, PT, BMP3M, PHOS3, MG3, CK3 #### [address] #### VD25H #### [facility] [address] [place] [address] Iron AND TIBCon 08-17-2018 Saturation 14 % Low 15-50 [facility] Comment on above: Performed By: #### H EMDF, PT, BMP3M, PHOS3, MG3, CK3 #### [place] [address] [place] #### VD25H #### [facility] [address] [place] [address] Total Iron Binding Cap. 166 ug/dL Low 261-497 [facility] Comment on above: Performed By: #### H EMDF, PT, BMP3M, PHOS3, MG3, CK3 #### [facility] [address] [place] #### VD25H #### [facility] [address] [place] [address] Iron, Total 23 ug/dL Low 49-181 [facility] Comment on above: Performed By: #### H EMDF, PT, BMP3M, PHOS3, MG3, CK3 #### [address] [address] [place], [place] #### VD25H #### [facility] [address] [place] [address] Magnesiumon 08-17-2018 Magnesium mass conc 2.0 mg/dL Normal 1.6-2.3 [facility] Comment on above: Performed By: #### H EMDF, PT, BMP3M, PHOS3, MG3, CK3 #### [address] #### VD25H #### [facility] [address] [place] [address] Manual Diffon 08-17-2018 Abs Baso Cnt 0.1 10*3/uL Normal 0.0-0.2 [facility] Comment on above: Performed By: #### H EMDF, PT, BMP3M, PHOS3, MG3, CK3 #### [address] [place] #### VD25H #### [facility] [address] [place] [address] Abs Neutrophile Cnt 5.6 10*3/uL Normal 2.2-8.2 [facility] Comment on above: Performed By: #### H EMDF, PT, BMP3M, PHOS3, MG3, CK3 #### [address] [place] #### VD25H #### [facility] [address] [place] [address] Anisocytosis Ql (Bld) Slight Normal [facility] Comment on above: Performed By: #### H EMDF, PT, BMP3M, PHOS3, MG3, CK3 #### [facility] [address] [facility], [place] #### VD25H #### [facility] [address] [place] [address] Bands 9 % High 0-3 [facility] Comment on above: Performed By: #### H EMDF, PT, BMP3M, PHOS3, MG3, CK3 #### [place] [place] #### VD25H #### [facility] [address] [place] [address] Basophils/100 WBC (Bld) 1 % Normal 0-2 [facility] Comment on above: Performed By: #### H EMDF, PT, BMP3M, PHOS3, MG3, CK3 #### [place] [address] [place] #### VD25H #### [facility] [address] [place] [address] Eosinophils #/vol (Bld) 0.2 10*3/uL Normal 0.0-0.5 [facility] Comment on above: Performed By: #### H EMDF, PT, BMP3M, PHOS3, MG3, CK3 #### [facility] [address] [place] #### VD25H #### [facility] [address] [place] [address] Eosinophils/100 WBC (Bld) 3 % Normal 1-6 [facility] Comment on above: Performed By: #### H EMDF, PT, BMP3M, PHOS3, MG3, CK3 #### [place] [address] [place] #### VD25H #### [facility] [address] [place] [address] Lymphocytes #/vol (Bld) 1.5 10*3/uL Normal 1.1-4.5 [facility] Comment on above: Performed By: #### H EMDF, PT, BMP3M, PHOS3, MG3, CK3 #### [place] [address] [place] #### VD25H #### [facility] [address] [place] [address] Lymphocytes/100 WBC (Bld) 18 % Low 20-40 [facility] Comment on above: Performed By: #### H EMDF, PT, BMP3M, PHOS3, MG3, CK3 #### [place] [address] [place] #### VD25H #### [facility] [address] [place] [address] Monocytes #/vol (Bld) 0.4 10*3/uL Normal 0.2-1.1 [facility] Comment on above: Performed By: #### H EMDF, PT, BMP3M, PHOS3, MG3, CK3 #### [address] [address] [place] #### VD25H #### [facility] [address] [place] [address] Monocytes/100 WBC (Bld) 5 % Normal 2-10 [facility] Comment on above: Performed By: #### H EMDF, PT, BMP3M, PHOS3, MG3, CK3 #### [place] [address] [place] #### VD25H #### [facility] [address] [place] [address] Myelocytes 5 % Abnormal <1 [facility] Comment on above: Performed By: #### H EMDF, PT, BMP3M, PHOS3, MG3, CK3 #### [address] #### VD25H #### [facility] [address] [place] [address] Polychromasia Slight Normal [facility] Comment on above: Performed By: #### H EMDF, PT, BMP3M, PHOS3, MG3, CK3 #### [facility] [address] [place] #### VD25H #### [facility] [address] [place] [address] RBC morphology finding Nom (Bld) ABNORMAL Normal [facility] Comment on above: Performed By: #### H EMDF, PT, BMP3M, PHOS3, MG3, CK3 #### [place] [address] [address] [place], [place] #### VD25H #### [facility] [address] [place] [address] Seg Neutrophils 59 % Normal 40-80 [facility] Comment on above: Performed By: #### H EMDF, PT, BMP3M, PHOS3, MG3, CK3 #### [place] [address] [place] #### VD25H #### [facility] [address] [place] [address] Toxic Granulation Slight Normal [facility] Comment on above: Performed By: #### H EMDF, PT, BMP3M, PHOS3, MG3, CK3 #### [place] [address] [place] #### VD25H #### [facility] [address] [place] [address] Cells counted 100 Normal [facility] Comment on above: Performed By: #### H EMDF, PT, BMP3M, PHOS3, MG3, CK3 #### [place] [address] [place], [place] #### VD25H #### [facility] [address] [place] [address] Phosphoruson 08-17-2018 Phosphate mass conc 3.9 mg/dL Normal 2.5-4.5 [facility] Comment on above: Performed By: #### H EMDF, PT, BMP3M, PHOS3, MG3, CK3 #### [facility] [address] [place] #### VD25H #### [facility] [address] [place] [address] Triglycerideon 08-17-2018 Triglyceride mass conc 104 mg/dL Normal <150 [facility] Comment on above: Performed By: #### H EMDF, PT, BMP3M, PHOS3, MG3, CK3 #### [place] [address] [place] #### VD25H #### [facility] [address] [place] [address] Vitamin B12on 08-17-2018 Cobalamin (Vitamin B12) mass conc 615 pg/mL Normal 239-931 [facility] Comment on above: Performed By: #### H EMDF, PT, BMP3M, PHOS3, MG3, CK3 #### [place] [address] [place] #### VD25H #### [facility] [address] [place] [address] Albumin, Serumon 08-16-2018 Albumin mass conc 2.6 g/dL Low 3.5-5.0 [facility] Comment on above: Performed By: #### H EMDF, PT, BMP3M, PHOS3, MG3, CK3 #### [place] [address] [address] [place], [place] #### VD25H #### [facility] [address] [place] [address] CR Abdomen APon 08-16-2018 CR Abdomen AP Patient Name: KATHYA HOOPER Diagnostic Radiology Exam Date/Time 08/16/2018 10:17:24 EDT Exam CR Abdomen AP Ordering Physician [id number] JOEY VILLAGRAN Accession Number [id number] CPT4 Codes 00932 () Reason For Exam dobhoff placement Report [...] ALFRED Transcribed Date and Time: 08/16/2018 12:33 [facility] CR Chest Portableon 08-17-19 CR Chest Portable Patient Name: KATHYA HOOPER Diagnostic Radiology Exam Date/Time 08/16/2018 10:17:24 EDT Exam CR Chest Portable Ordering Physician [id number] ESPINOSA Accession Number [id number] CPT4 Codes 95587 () Reason For Exam dyspnea Report PORTABLE [...] ALFRED Transcribed Date and Time: 08/16/2018 12:31 [facility] Comp Panel with Mg Reflexon 08-16-2018 Calcium mass conc 7.8 mg/dL Low 8.4-10.4 [facility] Comment on above: Performed By: #### H EMDF, PT, BMP3M, PHOS3, MG3, CK3 #### [facility] [address] [place] #### VD25H #### [facility] [address] [place] [address] Glucose mass conc 114 mg/dL High 70-100 [facility] Comment on above: Performed By: #### H EMDF, PT, BMP3M, PHOS3, MG3, CK3 #### [facility] [address] [facility], [place] #### VD25H #### [facility] [address] [place] [address] ALP enzyme act/vol 114 U/L Normal 38-126 [facility] Comment on above: Performed By: #### H EMDF, PT, BMP3M, PHOS3, MG3, CK3 #### [facility] [address] [facility], [place] #### VD25H #### [facility] [address] [place] [address] ALT enzyme act/vol 539 U/L High 13-69 [facility] Comment on above: Performed By: #### H EMDF, PT, BMP3M, PHOS3, MG3, CK3 #### [facility] [address] [place] #### VD25H #### [facility] [address] [place] [address] Anion gap molar conc 4 Normal [facility] Comment on above: Performed By: #### H EMDF, PT, BMP3M, PHOS3, MG3, CK3 #### [facility] [address] [facility], [place] #### VD25H #### [facility] [address] [place] [address] AST enzyme act/vol 460 U/L High 15-46 [facility] Comment on above: Performed By: #### H EMDF, PT, BMP3M, PHOS3, MG3, CK3 #### [facility] [address] [place] #### VD25H #### [facility] [address] [place] [address] Bilirubin mass conc 0.7 mg/dL Normal 0.2-1.3 [facility] Comment on above: Performed By: #### H EMDF, PT, BMP3M, PHOS3, MG3, CK3 #### [place] [address] [place] #### VD25H #### [facility] [address] [place] [address] CO2 molar conc 25 mmol/L Normal 22-30 [facility] Comment on above: Performed By: #### H EMDF, PT, BMP3M, PHOS3, MG3, CK3 #### [place] [address] [place], [place] #### VD25H #### [facility] [address] [place] [address] Creatinine mass conc 0.71 mg/dL Normal 0.52-1.25 [facility] Comment on above: Performed By: #### H EMDF, PT, BMP3M, PHOS3, MG3, CK3 #### [place] [address] [place] #### VD25H #### [facility] [address] [place] [address] GFR/1.73 sq M predicted among blacks MDRD vol rate/area (S/P/Bld) mL/min/{1.73_m2} Normal >60 [facility] Comment on above: Performed By: #### H EMDF, PT, BMP3M, PHOS3, MG3, CK3 #### [place] [address] [place] #### VD25H #### [facility] [address] [place] [address] GFR/1.73 sq M predicted among non-blacks MDRD vol rate/area (S/P/Bld) mL/min/{1.73_m2} Normal >60 [facility] Comment on above: Result Comment: Sour ce- MDRD equation with creatinine calibration to IDMS(NKDEP) eGFR not recommended for drug dose adjustment Performed By: #### H EMDF, PT, BMP3M, PHOS3, MG3, CK3 #### [facility] [address] [place] #### VD25H #### [facility] [address] [place] [address] Protein mass conc 5.1 g/dL Low 6.3-8.2 [facility] Comment on above: Performed By: #### H EMDF, PT, BMP3M, PHOS3, MG3, CK3 #### [address] #### VD25H #### [facility] [address] [place] [address] Urea nitrogen mass conc 22 mg/dL High 7-20 [facility] Comment on above: Performed By: #### H EMDF, PT, BMP3M, PHOS3, MG3, CK3 #### [place] [address] [place] #### VD25H #### [facility] [address] [place] [address] Chloride molar conc 102 mmol/L Normal 98-107 [facility] Comment on above: Performed By: #### H EMDF, PT, BMP3M, PHOS3, MG3, CK3 #### [address] #### VD25H #### [facility] [address] [place] [address] Potassium molar conc 3.1 mmol/L Low 3.5-5.1 [facility] Comment on above: Performed By: #### H EMDF, PT, BMP3M, PHOS3, MG3, CK3 #### [address] [address] [place], [place] #### VD25H #### [facility] [address] [place] [address] Sodium molar conc 131 mmol/L Low 135-145 [facility] [facility] Comment on above: Performed By: #### H EMDF, PT, BMP3M, PHOS3, MG3, CK3 #### [facility] [address] [place], [place] #### VD25H #### [facility] [address] [place] [address] Albumin mass conc 2.4 g/dL Low 3.5-5.[address] [facility] Comment on above: Performed By: #### H EMDF, PT, BMP3M, PHOS3, MG3, CK3 #### [place] [address] [place], [place] #### VD25H #### [facility] [employer] [facility] [address] [place] [address] Glucose,Bedsideon 08-16-2018 Glucose mass conc 100 mg/dL Normal 70-[address] [facility] Comment on above: Result Comment: Test performed by glucose meter. Results may be 10%-15% lower than serum/plasma values. (CLIA ID [id number]) Performed By: #### H EMDF, PT, BMP3M, PHOS3, MG3, CK3 #### [facility] [employer] [place] [address] [address] [place], [place] #### VD25H #### [facility] [employer] [facility] [address] [place] [address] Glucose mass conc 98 mg/dL Normal 70-[address] [facility] Comment on above: Result Comment: Test performed by glucose meter. Results may be 10%-15% lower than serum/plasma values. (CLIA ID [id number]) Performed By: #### H EMDF, PT, BMP3M, PHOS3, MG3, CK3 #### [employer] [place] [address] [address] [place], [place] #### VD25H #### [employer] [facility] [address] [place] [address] Glucose mass conc 110 mg/dL High 70-[address] [facility] Comment on above: Result Comment: Test performed by glucose meter. Results may be 10%-15% lower than serum/plasma values. (CLIA ID [id number]) Performed By: #### H EMDF, PT, BMP3M, PHOS3, MG3, CK3 #### [facility] [address] [place], [place] #### VD25H #### [facility] [employer] [facility] [address] [place] [address] Glucose mass conc 113 mg/dL High 70-100 [facility] Comment on above: Result Comment: Test performed by glucose meter. Results may be 10%-15% lower than serum/plasma values. (CLIA ID [id number]) Performed By: #### H EMDF, PT, BMP3M, PHOS3, MG3, CK3 #### [facility] [employer] [facility] [address] #### VD25H #### [employer] [facility] [address] [place] [address] Glucose mass conc 126 mg/dL High 70-100 [facility] Comment on above: Result Comment: Test performed by glucose meter. Results may be 10%-15% lower than serum/plasma values. (CLIA ID [id number]) Performed By: #### H EMDF, PT, BMP3M, PHOS3, MG3, CK3 #### [facility] [employer] [facility] [address] #### VD25H #### [facility] [employer] [facility] [address] [place] [address] Hemogram w/ Autodiffon 08-16 Abs Baso Cnt 0.0 10*3/uL Normal 0.0-0.2 [facility] Comment on above: Performed By: #### H EMDF, PT, BMP3M, PHOS3, MG3, CK3 #### [facility] [employer] [facility] [address] #### VD25H #### [facility] [address] [place] [address] Abs Neutrophile Cnt 7.7 10*3/uL High 1.8-7.0 [facility] Comment on above: Performed By: #### H EMDF, PT, BMP3M, PHOS3, MG3, CK3 #### [place] [address] [address] [place], [place] #### VD25H #### [facility] [address] [place] [address] Basophils/100 WBC (Bld) 0.5 % Normal 0.0-2.0 [facility] Comment on above: Performed By: #### H EMDF, PT, BMP3M, PHOS3, MG3, CK3 #### [address] #### VD25H #### [facility] [address] [place] [address] Eosinophils #/vol (Bld) 0.1 10*3/uL Normal 0.0-0.5 [facility] Comment on above: Performed By: #### H EMDF, PT, BMP3M, PHOS3, MG3, CK3 #### [address] #### VD25H #### [facility] [address] [place] [address] Eosinophils/100 WBC (Bld) 1.5 % Normal 1.0-6.0 [facility] Comment on above: Performed By: #### H EMDF, PT, BMP3M, PHOS3, MG3, CK3 #### [address] #### VD25H #### [facility] [address] [place] [address] Erythrocyte distribution width Ratio (RBC) 14.4 % Normal 11.5-14.5 [facility] Comment on above: Performed By: #### H EMDF, PT, BMP3M, PHOS3, MG3, CK3 #### [address] #### VD25H #### [facility] [address] [place] [address] Granulocytes/100 WBC (Bld) 79.7 % Normal 40.0-80.0 [facility] Comment on above: Performed By: #### H EMDF, PT, BMP3M, PHOS3, MG3, CK3 #### [address] #### VD25H #### [facility] [address] [place] [address] Hematocrit Volume Fraction (Bld) 27.1 % Low 40.0-52.0 [facility] Comment on above: Performed By: #### H EMDF, PT, BMP3M, PHOS3, MG3, CK3 #### [address] #### VD25H #### [facility] [address] [place] [address] Hemoglobin mass conc (Bld) 9.2 g/dL Low 13.0-18.0 [facility] Comment on above: Performed By: #### H EMDF, PT, BMP3M, PHOS3, MG3, CK3 #### [address] #### VD25H #### [facility] [address] [place] [address] Lymphocytes #/vol (Bld) 1.0 10*3/uL Normal 1.0-4.3 [facility] Comment on above: Performed By: #### H EMDF, PT, BMP3M, PHOS3, MG3, CK3 #### [address] #### VD25H #### [facility] [address] [place] [address] Lymphocytes/100 WBC (Bld) 10.0 % Low 20.0-40.0 [facility] Comment on above: Performed By: #### H EMDF, PT, BMP3M, PHOS3, MG3, CK3 #### [address] [place], [place] #### VD25H #### [facility] [address] [place] [address] MCH Entitic mass (RBC) 28.5 pg Normal 26.0-34.0 [facility] Comment on above: Performed By: #### H EMDF, PT, BMP3M, PHOS3, MG3, CK3 #### [place] [address] [address] [place] #### VD25H #### [facility] [address] [place] [address] MCHC mass conc (RBC) 33.8 % Normal 32.0-36.0 [facility] Comment on above: Performed By: #### H EMDF, PT, BMP3M, PHOS3, MG3, CK3 #### [address] #### VD25H #### [place] [address] [place] [address] MCV Entitic volume (RBC) 84.4 fL Normal 80.0-98.0 [facility] Comment on above: Performed By: #### H EMDF, PT, BMP3M, PHOS3, MG3, CK3 #### [address] #### VD25H #### [place] [address] [place] [address] Monocytes #/vol (Bld) 0.8 10*3/uL Normal 0.0-0.8 [facility] Comment on above: Performed By: #### H EMDF, PT, BMP3M, PHOS3, MG3, CK3 #### [address] #### VD25H #### [place] [address] [place] [address] Monocytes/100 WBC (Bld) 8.3 % Normal 2.0-10.0 [facility] Comment on above: Performed By: #### H EMDF, PT, BMP3M, PHOS3, MG3, CK3 #### [address] [place], [place] #### VD25H #### [facility] [address] [place] [address] Platelet mean volume Entitic volume (Bld) 8.4 fL Normal 7.4-10.4 [facility] Comment on above: Performed By: #### H EMDF, PT, BMP3M, PHOS3, MG3, CK3 #### [place] [address] [place] #### VD25H #### [place] [address] [place] [address] Platelets #/vol (Bld) 245 10*3/uL Normal 140-440 [facility] Comment on above: Performed By: #### H EMDF, PT, BMP3M, PHOS3, MG3, CK3 #### [address] #### VD25H #### [place] [address] [place] [address] RBC #/vol (Bld) 3.21 10*6/uL Low 4.40-5.90 [facility] Comment on above: Performed By: #### H EMDF, PT, BMP3M, PHOS3, MG3, CK3 #### [address] #### VD25H #### [place] [address] [place] [address] WBC #/vol (Bld) 9.7 10*3/uL Normal 3.6-10.7 [facility] Comment on above: Performed By: #### H EMDF, PT, BMP3M, PHOS3, MG3, CK3 #### [address] #### VD25H #### [place] [address] [place] [address] Magnesiumon 08-16-2018 Magnesium mass conc 2.1 mg/dL Normal 1.6-2.3 [facility] Comment on above: Performed By: #### H EMDF, PT, BMP3M, PHOS3, MG3, CK3 #### [place] [address] [address] [place] #### VD25H #### [facility] [address] [place] [address] Phosphoruson 08-16-2018 Phosphate mass conc 4.4 mg/dL Normal 2.5-4.5 [facility] Comment on above: Performed By: #### H EMDF, PT, BMP3M, PHOS3, MG3, CK3 #### [address] #### VD25H #### [facility] [address] [facility] [place] [address] Potassiumon 08-16-2018 Potassium molar conc 3.5 mmol/L Normal 3.5-5.1 [facility] Comment on above: Performed By: #### H EMDF, PT, BMP3M, PHOS3, MG3, CK3 #### [address] #### VD25H #### [facility] [address] [place] [address] Procalcitoninon 08-16-2018 Protein mass conc 3.10 ng/mL Abnormal <0.10 [facility] Comment on above: Performed By: #### H EMDF, PT, BMP3M, PHOS3, MG3, CK3 #### [place] [address] [address] [place] #### VD25H #### [facility] [address] [place] [address] Prothrombin Timeon 9 INR Coag RelTime (PPP) 1.1 Normal 0.9-1.1 [facility] Comment on above: Result Comment: Yefri [...] EMDF, PT, BMP3M, PHOS3, MG3, CK3 #### [employer] [facility] [address] [place] [address] #### VD25H #### [employer] [facility] [address] [place] [address] Prothrombin time (PT) Coag time (PPP) 11.8 s Normal 9.0-12.0 [facility] [employer] [facility] Comment on above: Result Comment: . Performed By: #### H EMDF, PT, BMP3M, PHOS3, MG3, CK3 #### [employer] [facility] [address] [place] [address] #### VD25H #### [employer] [facility] [address] [place] [address] US Abdomen Limitedon 019 US Abdomen Limited Patient Name: KATHYA HOOPER Ultrasound Exam Date/Time 08/16/2018 19:12:00 EDT Exam US Abdomen Limited Ordering Physician [id number] ESPINOSA Accession Number [id number] CPT4 Codes 20158 () Reason For Exam elevated transaminases Report [...] Transcribed Date and Time: 08/16/2018 7:26 Normal [facility] Glucose,Bedsideon 08-15-2018 Glucose mass conc 98 mg/dL Normal 70-100 [facility] Comment on above: Result Comment: Test performed by glucose meter. Results may be 10%-15% lower than serum/plasma values. (CLIA ID [id number]) Performed By: #### H EMDF, PT, BMP3M, PHOS3, MG3, CK3 #### [facility] [address] [place], [place] #### VD25H #### [facility] [address] [place] [address] Procalcitoninon 08-15-2018 Interpretation See Below Normal [facility] Comment on above: Result Comment: PCT <0.50 = Low risk of severe sepsis and/or septic shock. PCT >2.00 = High risk of severe sepsis and/or septic shock. Performed By: #### H EMDF, PT, BMP3M, PHOS3, MG3, CK3 #### [facility] [employer] [facility] [address] [place], [place] #### VD25H #### [facility] [address] [place] [address] CULTURE FUNGUSon 08-13-2018 CULTURE FUNGUS CULTURE FUNGUS --> Status: F No fungus isolated after 21 days. [facility] Comment on above: Order Comment: Speci men Source Comment:Body Fluid Performed By: #### H EMDF, PT, BMP3M, PHOS3, MG3, CK3 #### [facility] [address] [place], [place] #### VD25H #### [facility] [address] [place] [address] Hemogram w/ Autodiffon 08-01 Abs Baso Cnt 0.2 10*3/uL Normal 0.0-0.2 [facility] Comment on above: Performed By: #### H EMDF, PT, BMP3M, PHOS3, MG3, CK3 #### [facility] [address] [place], [place] #### VD25H #### [facility] [address] [place] [address] Abs Neutrophile Cnt 14.3 10*3/uL High 1.8-7.0 [facility] Comment on above: Performed By: #### H EMDF, PT, BMP3M, PHOS3, MG3, CK3 #### [address] #### VD25H #### [facility] [address] [place] [address] Basophils/100 WBC (Bld) 1.0 % Normal 0.0-2.0 [facility] Comment on above: Performed By: #### H EMDF, PT, BMP3M, PHOS3, MG3, CK3 #### [address] #### VD25H #### [facility] [address] [place] [address] Eosinophils #/vol (Bld) 0.4 10*3/uL Normal 0.0-0.5 [facility] Comment on above: Performed By: #### H EMDF, PT, BMP3M, PHOS3, MG3, CK3 #### [address] #### VD25H #### [facility] [address] [place] [address] Eosinophils/100 WBC (Bld) 2.3 % Normal 1.0-6.0 [facility] Comment on above: Performed By: #### H EMDF, PT, BMP3M, PHOS3, MG3, CK3 #### [address] #### VD25H #### [facility] [address] [place] [address] Erythrocyte distribution width Ratio (RBC) 13.7 % Normal 11.5-14.5 [facility] Comment on above: Performed By: #### H EMDF, PT, BMP3M, PHOS3, MG3, CK3 #### [address] #### VD25H #### [facility] [address] [place] [address] Granulocytes/100 WBC (Bld) 82.1 % High 40.0-80.0 [facility] Comment on above: Performed By: #### H EMDF, PT, BMP3M, PHOS3, MG3, CK3 #### [address] #### VD25H #### [place] [address] [place] [address] Hematocrit Volume Fraction (Bld) 31.2 % Low 40.0-52.0 [facility] Comment on above: Performed By: #### H EMDF, PT, BMP3M, PHOS3, MG3, CK3 #### [address] #### VD25H #### [place] [address] [place] [address] Hemoglobin mass conc (Bld) 10.5 g/dL Low 13.0-18.0 [facility] Comment on above: Performed By: #### H EMDF, PT, BMP3M, PHOS3, MG3, CK3 #### [address] #### VD25H #### [facility] [address] [place] [address] Lymphocytes #/vol (Bld) 1.6 10*3/uL Normal 1.0-4.3 [facility] Comment on above: Performed By: #### H EMDF, PT, BMP3M, PHOS3, MG3, CK3 #### [address] #### VD25H #### [facility] [address] [place] [address] Lymphocytes/100 WBC (Bld) 9.1 % Low 20.0-40.0 [facility] Comment on above: Performed By: #### H EMDF, PT, BMP3M, PHOS3, MG3, CK3 #### [place] [address] [address] [place] #### VD25H #### [facility] [address] [place] [address] MCH Entitic mass (RBC) 28.9 pg Normal 26.0-34.0 [facility] Comment on above: Performed By: #### H EMDF, PT, BMP3M, PHOS3, MG3, CK3 #### [place] [address] [address] [place] #### VD25H #### [place] [address] [place] [address] MCHC mass conc (RBC) 33.7 % Normal 32.0-36.0 [facility] Comment on above: Performed By: #### H EMDF, PT, BMP3M, PHOS3, MG3, CK3 #### [place] [address] [address] [place] #### VD25H #### [place] [address] [place] [address] MCV Entitic volume (RBC) 85.5 fL Normal 80.0-98.0 [facility] Comment on above: Performed By: #### H EMDF, PT, BMP3M, PHOS3, MG3, CK3 #### [place] [address] [address] [place] #### VD25H #### [facility] [address] [place] [address] Monocytes #/vol (Bld) 1.0 10*3/uL High 0.0-0.8 [facility] Comment on above: Performed By: #### H EMDF, PT, BMP3M, PHOS3, MG3, CK3 #### [address] [place] #### VD25H #### [facility] [address] [place] [address] Monocytes/100 WBC (Bld) 5.5 % Normal 2.0-10.0 [facility] Comment on above: Performed By: #### H EMDF, PT, BMP3M, PHOS3, MG3, CK3 #### [address] [place] #### VD25H #### [facility] [address] [place] [address] Platelet mean volume Entitic volume (Bld) 8.0 fL Normal 7.4-10.4 [facility] Comment on above: Performed By: #### H EMDF, PT, BMP3M, PHOS3, MG3, CK3 #### [address] #### VD25H #### [facility] [address] [place] [address] Platelets #/vol (Bld) 425 10*3/uL Normal 140-440 [facility] Comment on above: Performed By: #### H EMDF, PT, BMP3M, PHOS3, MG3, CK3 #### [address] #### VD25H #### [facility] [address] [place] [address] RBC #/vol (Bld) 3.65 10*6/uL Low 4.40-5.90 [facility] Comment on above: Performed By: #### H EMDF, PT, BMP3M, PHOS3, MG3, CK3 #### [address] #### VD25H #### [facility] [address] [place] [address] WBC #/vol (Bld) 17.4 10*3/uL High 3.6-10.7 [facility] Comment on above: Performed By: #### H EMDF, PT, BMP3M, PHOS3, MG3, CK3 #### [place] [address] [address] [place] #### VD25H #### [facility] [address] [place] [address] Basic Metabolic Panelon 04-0 Calcium mass conc 8.3 mg/dL Low 8.4-10.4 [facility] Comment on above: Performed By: #### H EMDF, PT, BMP3M, PHOS3, MG3, CK3 #### [place] [address] [place], [place] #### VD25H #### [facility] [address] [place] [address] Glucose mass conc 114 mg/dL High 70-100 [facility] Comment on above: Performed By: #### H EMDF, PT, BMP3M, PHOS3, MG3, CK3 #### [place] [address] [address] [place] #### VD25H #### [facility] [address] [place] [address] Anion gap molar conc 10 Normal [facility] Comment on above: Performed By: #### H EMDF, PT, BMP3M, PHOS3, MG3, CK3 #### [address] #### VD25H #### [facility] [address] [place] [address] CO2 molar conc 34 mmol/L High 22-30 [facility] Comment on above: Performed By: #### H EMDF, PT, BMP3M, PHOS3, MG3, CK3 #### [place] [address] [address] [place] #### VD25H #### [facility] [address] [place] [address] Creatinine mass conc 0.52 mg/dL Normal 0.52-1.25 [facility] Comment on above: Performed By: #### H EMDF, PT, BMP3M, PHOS3, MG3, CK3 #### [facility] [address] [place], [place] #### VD25H #### [facility] [address] [place] [address] GFR/1.73 sq M predicted among blacks MDRD vol rate/area (S/P/Bld) mL/min/{1.73_m2} Normal >60 [facility] Comment on above: Performed By: #### H EMDF, PT, BMP3M, PHOS3, MG3, CK3 #### [address] #### VD25H #### [facility] [address] [place] [address] GFR/1.73 sq M predicted among non-blacks MDRD vol rate/area (S/P/Bld) mL/min/{1.73_m2} Normal >60 [facility] Comment on above: Result Comment: Sour ce- MDRD equation with creatinine calibration to IDMS(NKDEP) eGFR not recommended for drug dose adjustment Performed By: #### H EMDF, PT, BMP3M, PHOS3, MG3, CK3 #### [address] #### VD25H #### [facility] [address] [place] [address] Urea nitrogen mass conc 23 mg/dL High 7-20 [facility] Comment on above: Performed By: #### H EMDF, PT, BMP3M, PHOS3, MG3, CK3 #### [address] #### VD25H #### [facility] [address] [place] [address] Chloride molar conc 95 mmol/L Low 98-107 [facility] Comment on above: Performed By: #### H EMDF, PT, BMP3M, PHOS3, MG3, CK3 #### [address] #### VD25H #### [place] [address] [place] [address] Potassium molar conc 3.7 mmol/L Normal 3.5-5.1 [facility] Comment on above: Performed By: #### H EMDF, PT, BMP3M, PHOS3, MG3, CK3 #### [address] #### VD25H #### [place] [address] [place] [address] Sodium molar conc 139 mmol/L Normal 135-145 [facility] Comment on above: Performed By: #### H EMDF, PT, BMP3M, PHOS3, MG3, CK3 #### [address] #### VD25H #### [place] [address] [place] [address] Hemogram w/ Autodiffon 07-31 Abs Baso Cnt 0.2 10*3/uL Normal 0.0-0.2 [facility] Comment on above: Performed By: #### H EMDF, PT, BMP3M, PHOS3, MG3, CK3 #### [address] #### VD25H #### [place] [address] [place] [address] Abs Neutrophile Cnt 13.4 10*3/uL High 1.8-7.0 [facility] Comment on above: Performed By: #### H EMDF, PT, BMP3M, PHOS3, MG3, CK3 #### [address] #### VD25H #### [place] [address] [place] [address] Basophils/100 WBC (Bld) 1.0 % Normal 0.0-2.0 [facility] Comment on above: Performed By: #### H EMDF, PT, BMP3M, PHOS3, MG3, CK3 #### [address] #### VD25H #### [facility] [address] [place] [address] Eosinophils #/vol (Bld) 0.5 10*3/uL Normal 0.0-0.5 [facility] Comment on above: Performed By: #### H EMDF, PT, BMP3M, PHOS3, MG3, CK3 #### [address] [place] #### VD25H #### [facility] [address] [place] [address] Eosinophils/100 WBC (Bld) 3.1 % Normal 1.0-6.0 [facility] Comment on above: Performed By: #### H EMDF, PT, BMP3M, PHOS3, MG3, CK3 #### [address] #### VD25H #### [facility] [address] [place] [address] Erythrocyte distribution width Ratio (RBC) 14.0 % Normal 11.5-14.5 [facility] Comment on above: Performed By: #### H EMDF, PT, BMP3M, PHOS3, MG3, CK3 #### [address] #### VD25H #### [facility] [address] [place] [address] Granulocytes/100 WBC (Bld) 80.6 % High 40.0-80.0 [facility] Comment on above: Performed By: #### H EMDF, PT, BMP3M, PHOS3, MG3, CK3 #### [address] #### VD25H #### [facility] [address] [place] [address] Hematocrit Volume Fraction (Bld) 32.3 % Low 40.0-52.0 [facility] Comment on above: Performed By: #### H EMDF, PT, BMP3M, PHOS3, MG3, CK3 #### [facility] [address] [place] #### VD25H #### [facility] [address] [place] [address] Hemoglobin mass conc (Bld) 10.8 g/dL Low 13.0-18.0 [facility] Comment on above: Performed By: #### H EMDF, PT, BMP3M, PHOS3, MG3, CK3 #### [place] [address] [address] [place] #### VD25H #### [facility] [address] [place] [address] Lymphocytes #/vol (Bld) 1.6 10*3/uL Normal 1.0-4.3 [facility] Comment on above: Performed By: #### H EMDF, PT, BMP3M, PHOS3, MG3, CK3 #### [address] #### VD25H #### [facility] [address] [place] [address] Lymphocytes/100 WBC (Bld) 9.8 % Low 20.0-40.0 [facility] Comment on above: Performed By: #### H EMDF, PT, BMP3M, PHOS3, MG3, CK3 #### [address] #### VD25H #### [facility] [address] [place] [address] MCH Entitic mass (RBC) 28.9 pg Normal 26.0-34.0 [facility] Comment on above: Performed By: #### H EMDF, PT, BMP3M, PHOS3, MG3, CK3 #### [address] [place] #### VD25H #### [facility] [address] [place] [address] MCHC mass conc (RBC) 33.6 % Normal 32.0-36.0 [facility] Comment on above: Performed By: #### H EMDF, PT, BMP3M, PHOS3, MG3, CK3 #### [address] [place] #### VD25H #### [facility] [address] [place] [address] MCV Entitic volume (RBC) 86.1 fL Normal 80.0-98.0 [facility] Comment on above: Performed By: #### H EMDF, PT, BMP3M, PHOS3, MG3, CK3 #### [address] [place] #### VD25H #### [facility] [address] [place] [address] Monocytes #/vol (Bld) 0.9 10*3/uL High 0.0-0.8 [facility] Comment on above: Performed By: #### H EMDF, PT, BMP3M, PHOS3, MG3, CK3 #### [address] #### VD25H #### [facility] [address] [place] [address] Monocytes/100 WBC (Bld) 5.5 % Normal 2.0-10.0 [facility] Comment on above: Performed By: #### H EMDF, PT, BMP3M, PHOS3, MG3, CK3 #### [address] #### VD25H #### [facility] [address] [place] [address] Platelet mean volume Entitic volume (Bld) 8.2 fL Normal 7.4-10.4 [facility] Comment on above: Performed By: #### H EMDF, PT, BMP3M, PHOS3, MG3, CK3 #### [address] #### [id number] #### [facility] [address] [place] [address] Platelets #/vol (Bld) 475 10*3/uL High 140-440 [facility] Comment on above: Performed By: #### H EMDF, PT, BMP3M, PHOS3, MG3, CK3 #### [place] [address] [place] #### VD25H #### [facility] [address] [place] [address] RBC #/vol (Bld) 3.75 10*6/uL Low 4.40-5.90 [facility] Comment on above: Performed By: #### H EMDF, PT, BMP3M, PHOS3, MG3, CK3 #### [address] #### VD25H #### [facility] [address] [place] [address] WBC #/vol (Bld) 16.6 10*3/uL High 3.6-10.7 [facility] Comment on above: Performed By: #### H EMDF, PT, BMP3M, PHOS3, MG3, CK3 #### [address] #### VD25H #### [facility] [address] [place] [address] Magnesiumon 07-31-2018 Magnesium mass conc 2.4 mg/dL High 1.6-2.3 [facility] Comment on above: Performed By: #### H EMDF, PT, BMP3M, PHOS3, MG3, CK3 #### [place] [address] [address] [place], [place] #### VD25H #### [facility] [address] [place] [address] Phosphoruson 07-31-2018 Phosphate mass conc 4.5 mg/dL Normal 2.5-4.5 [facility] Comment on above: Performed By: #### H EMDF, PT, BMP3M, PHOS3, MG3, CK3 #### [address] #### VD25H #### [facility] [address] [place] [address] Basic Metabolic Panelon 04-0 Calcium mass conc 8.6 mg/dL Normal 8.4-10.4 [facility] Comment on above: Performed By: #### H EMDF, PT, BMP3M, PHOS3, MG3, CK3 #### [address] #### VD25H #### [place] [address] [place] [address] Anion gap molar conc 8 Normal [facility] Comment on above: Performed By: #### H EMDF, PT, BMP3M, PHOS3, MG3, CK3 #### [address] #### VD25H #### [place] [address] [place] [address] CO2 molar conc 34 mmol/L High 22-30 [facility] Comment on above: Performed By: #### H EMDF, PT, BMP3M, PHOS3, MG3, CK3 #### [address] #### VD25H #### [place] [address] [place] [address] Creatinine mass conc 0.56 mg/dL Normal 0.52-1.25 [facility] Comment on above: Performed By: #### H EMDF, PT, BMP3M, PHOS3, MG3, CK3 #### [address] #### VD25H #### [place] [address] [place] [address] GFR/1.73 sq M predicted among blacks MDRD vol rate/area (S/P/Bld) mL/min/{1.73_m2} Normal >60 [facility] Comment on above: Performed By: #### H EMDF, PT, BMP3M, PHOS3, MG3, CK3 #### [address] #### VD25H #### [facility] [address] [place] [address] GFR/1.73 sq M predicted among non-blacks MDRD vol rate/area (S/P/Bld) mL/min/{1.73_m2} Normal >60 [facility] Comment on above: Result Comment: Sour ce- MDRD equation with creatinine calibration to IDMS(NKDEP) eGFR not recommended for drug dose adjustment Performed By: #### H EMDF, PT, BMP3M, PHOS3, MG3, CK3 #### [address] [address] [place] #### VD25H #### [facility] [address] [place] [address] Glucose mass conc 121 mg/dL High 70-100 [facility] Comment on above: Performed By: #### H EMDF, PT, BMP3M, PHOS3, MG3, CK3 #### [address] [address] [facility] [place] #### VD25H #### [facility] [address] [place] [address] Urea nitrogen mass conc 29 mg/dL High 7-20 [facility] Comment on above: Performed By: #### H EMDF, PT, BMP3M, PHOS3, MG3, CK3 #### [address] [address] [place], [place] #### VD25H #### [facility] [address] [place] [address] Chloride molar conc 99 mmol/L Normal 98-107 [facility] Comment on above: Performed By: #### H EMDF, PT, BMP3M, PHOS3, MG3, CK3 #### [address], [place] #### VD25H #### [facility] [address] [place] [address] Potassium molar conc 3.7 mmol/L Normal 3.5-5.1 [facility] Comment on above: Performed By: #### H EMDF, PT, BMP3M, PHOS3, MG3, CK3 #### [facility] [address] [place] [address] #### VD25H #### [facility] [address] [place] [address] Sodium molar conc 141 mmol/L Normal 135-145 [facility] Comment on above: Performed By: #### H EMDF, PT, BMP3M, PHOS3, MG3, CK3 #### [facility] [address] [place] [address] #### VD25H #### [facility] [address] [place] [address] CR Abdomen APon 07-30-2018 CR Abdomen AP Patient Name: KATHYA HOOPER Diagnostic Radiology Exam Date/Time 07/30/2018 10:28:42 EDT Exam CR Abdomen AP Ordering Physician [id number] JOHNSON Accession Number [id number] CPT4 Codes 71246 () Reason For Exam abd distension Report [...] Transcribed Date and Time: 07/30/2018 3:57 Normal [facility] CR Chest Portableon 07-31-19 19 CR Chest Portable Patient Name: KATHYA HOOPER Diagnostic Radiology Exam Date/Time 07/30/2018 12:28:13 EDT Exam CR Chest Portable Ordering Physician SUSAN SALO E Accession Number [id number] CPT4 Codes 42905 () Reason For Exam line reposition Report [...] Transcribed Date and Time: 07/30/2018 1:32 Normal [facility] CR Chest Portable Patient Name: KATHYA HOOPER Diagnostic Radiology Exam Date/Time 07/30/2018 06:40:08 EDT Exam CR Chest Portable Ordering Physician MARIA EUGENIA PEREZ Accession Number [id number] CPT4 Codes 79088 () Reason For Exam ETT placement Report [...] Transcribed Date and Time: 07/30/2018 10:26 Normal [facility] Glucose,Bedsideon 07-30-2018 Glucose mass conc 125 mg/dL High 70-[address] [facility] Comment on above: Result Comment: Test performed by glucose meter. Results may be 10%-15% lower than serum/plasma values. (CLIA ID [id number]) Performed By: #### H EMDF, PT, BMP3M, PHOS3, MG3, CK3 #### [address] [address] [place], [place] #### VD25H #### [employer] [facility] [address] [place] [address] Glucose mass conc 117 mg/dL High 70-[address] [facility] Comment on above: Result Comment: Test performed by glucose meter. Results may be 10%-15% lower than serum/plasma values. (CLIA ID [id number]) Performed By: #### H EMDF, PT, BMP3M, PHOS3, MG3, CK3 #### [facility] [address] [place] [address] #### VD25H #### [facility] [address] [place] [address] Glucose mass conc 44 mg/dL Low 70-[address] [facility] Comment on above: Result Comment: Repe ated Test; Test performed by glucose meter. Results may be 10%-15% lower than serum/plasma values. (CLIA ID [id number]) Performed By: #### H EMDF, PT, BMP3M, PHOS3, MG3, CK3 #### [facility] [address] [place] [address] #### VD25H #### [facility] [address] [place] [address] Hemogram w/ Autodiffon 07-30 Abs Baso Cnt 0.2 10*3/uL Normal 0.0-0.2 [facility] Comment on above: Performed By: #### H EMDF, PT, BMP3M, PHOS3, MG3, CK3 #### [facility] [address] [place] #### VD25H #### [facility] [address] [place] [address] Abs Neutrophile Cnt 13.2 10*3/uL High 1.8-7.0 [facility] Comment on above: Performed By: #### H EMDF, PT, BMP3M, PHOS3, MG3, CK3 #### [address] #### VD25H #### [facility] [address] [place] [address] Basophils/100 WBC (Bld) 0.9 % Normal 0.0-2.0 [facility] Comment on above: Performed By: #### H EMDF, PT, BMP3M, PHOS3, MG3, CK3 #### [address] #### VD25H #### [facility] [address] [place] [address] Eosinophils #/vol (Bld) 0.5 10*3/uL Normal 0.0-0.5 [facility] Comment on above: Performed By: #### H EMDF, PT, BMP3M, PHOS3, MG3, CK3 #### [address] [place] #### VD25H #### [facility] [address] [place] [address] Eosinophils/100 WBC (Bld) 2.8 % Normal 1.0-6.0 [facility] Comment on above: Performed By: #### H EMDF, PT, BMP3M, PHOS3, MG3, CK3 #### [address] #### VD25H #### [facility] [address] [place] [address] Erythrocyte distribution width Ratio (RBC) 13.7 % Normal 11.5-14.5 [facility] Comment on above: Performed By: #### H EMDF, PT, BMP3M, PHOS3, MG3, CK3 #### [address] [address] [place], [place] #### VD25H #### [facility] [address] [place] [address] Granulocytes/100 WBC (Bld) 76.6 % Normal 40.0-80.0 [facility] Comment on above: Performed By: #### H EMDF, PT, BMP3M, PHOS3, MG3, CK3 #### [address] #### VD25H #### [facility] [address] [place] [address] Hematocrit Volume Fraction (Bld) 31.4 % Low 40.0-52.0 [facility] Comment on above: Performed By: #### H EMDF, PT, BMP3M, PHOS3, MG3, CK3 #### [address] #### VD25H #### [facility] [address] [place] [address] Hemoglobin mass conc (Bld) 10.6 g/dL Low 13.0-18.0 [facility] Comment on above: Performed By: #### H EMDF, PT, BMP3M, PHOS3, MG3, CK3 #### [address] #### VD25H #### [facility] [address] [place] [address] Lymphocytes #/vol (Bld) 2.2 10*3/uL Normal 1.0-4.3 [facility] Comment on above: Performed By: #### H EMDF, PT, BMP3M, PHOS3, MG3, CK3 #### [address] #### VD25H #### [facility] [address] [place] [address] Lymphocytes/100 WBC (Bld) 12.9 % Low 20.0-40.0 [facility] Comment on above: Performed By: #### H EMDF, PT, BMP3M, PHOS3, MG3, CK3 #### [address] #### VD25H #### [facility] [address] [place] [address] MCH Entitic mass (RBC) 29.2 pg Normal 26.0-34.0 [facility] Comment on above: Performed By: #### H EMDF, PT, BMP3M, PHOS3, MG3, CK3 #### [address] #### VD25H #### [place] [address] [place] [address] MCHC mass conc (RBC) 33.8 % Normal 32.0-36.0 [facility] Comment on above: Performed By: #### H EMDF, PT, BMP3M, PHOS3, MG3, CK3 #### [address] #### VD25H #### [place] [address] [place] [address] MCV Entitic volume (RBC) 86.4 fL Normal 80.0-98.0 [facility] Comment on above: Performed By: #### H EMDF, PT, BMP3M, PHOS3, MG3, CK3 #### [address] #### VD25H #### [facility] [address] [place] [address] Monocytes #/vol (Bld) 1.2 10*3/uL High 0.0-0.8 [facility] Comment on above: Performed By: #### H EMDF, PT, BMP3M, PHOS3, MG3, CK3 #### [address], [place] #### VD25H #### [facility] [address] [place] [address] Monocytes/100 WBC (Bld) 6.8 % Normal 2.0-10.0 [facility] Comment on above: Performed By: #### H EMDF, PT, BMP3M, PHOS3, MG3, CK3 #### [place] [address] [address] [place] #### VD25H #### [facility] [address] [place] [address] Platelet mean volume Entitic volume (Bld) 8.1 fL Normal 7.4-10.4 [facility] Comment on above: Performed By: #### H EMDF, PT, BMP3M, PHOS3, MG3, CK3 #### [address] #### VD25H #### [facility] [address] [place] [address] Platelets #/vol (Bld) 507 10*3/uL High 140-440 [facility] Comment on above: Performed By: #### H EMDF, PT, BMP3M, PHOS3, MG3, CK3 #### [address] #### VD25H #### [facility] [address] [place] [address] RBC #/vol (Bld) 3.64 10*6/uL Low 4.40-5.90 [facility] Comment on above: Performed By: #### H EMDF, PT, BMP3M, PHOS3, MG3, CK3 #### [address] #### VD25H #### [facility] [address] [place] [address] WBC #/vol (Bld) 17.2 10*3/uL High 3.6-10.7 [facility] Comment on above: Performed By: #### H EMDF, PT, BMP3M, PHOS3, MG3, CK3 #### [facility] [address] [place] #### VD25H #### [facility] [address] [place] [address] Magnesiumon 07-30-2018 Magnesium mass conc 2.5 mg/dL High 1.6-2.3 [facility] Comment on above: Performed By: #### H EMDF, PT, BMP3M, PHOS3, MG3, CK3 #### [facility] [address] [facility], [place] #### VD25H #### [facility] [address] [place] [address] Phosphoruson 07-30-2018 Phosphate mass conc 4.5 mg/dL Normal 2.5-4.5 [facility] Comment on above: Performed By: #### H EMDF, PT, BMP3M, PHOS3, MG3, CK3 #### [employer] [facility] [address] [place] #### VD25H #### [facility] [address] [place] [address] VL Venous Duplex US Lower Ex t Bilateralon 07-30-2018 VL Venous Duplex US Lower Ext Bilateral Patient Name: KATHYA HOOPER Ultrasound Exam Date/Time 07/30/2018 12:27:47 EDT Exam VL Venous Duplex US Lower Ext Bilateral Ordering Physician ETIENNE MARTÍNEZ JULIE Accession Number [id number] CPT4 Codes 40698 () Reason For Exam edema Report [facility] --- Lower Extremity Venous Duplex Report Patient Name: Kathya Hooper : 1955 Study Date: 07/30/2018 W (63yrs) Age: 63 Account: [id number] Gender: M Loc: T209 BP: Ordering: Yesenia Martínez Technologist: Ordering Physician: Yesenia Martínez Cisco Engineer: Barbara Suarez RDDE, T Interpreting Physician: Krysta Arora --- Location: [facility] --- INDICATIONS: Edema. --- CONCLUSIONS [...] performed. The images were obtained using a [employer] E9 vascular ultrasound machine. --- VENOUS FLOW [...] ---------+-------+--- --+ Electronically signed by: Krysta Arora [id number] Final Dictated: 07/30/2018 1:30 pm Dictating Physician: KRYSTA ARORA Signed Date and Time: 07/30/2018 1:29 pm Signed by: KRYSTA ARORA Normal [facility] Arterial Blood Gaseson 07-29 CO2 molar conc 34.4 mmol/L High 23.0-27.0 [facility] Comment on above: Performed By: #### H EMDF, PT, BMP3M, PHOS3, MG3, CK3 #### [address] #### VD25H #### [facility] [address] [place] [address] HCO3 molar conc (Bld) 33.0 mmol/L High 21.0-25.0 [facility] Comment on above: Performed By: #### H EMDF, PT, BMP3M, PHOS3, MG3, CK3 #### [address] [address] #### VD25H #### [facility] [address] [place] [address] Hemoglobin mass conc (Bld) 11.5 g/dL Normal ScreenOnly [facility] Comment on above: Performed By: #### H EMDF, PT, BMP3M, PHOS3, MG3, CK3 #### [address] #### VD25H #### [facility] [address] [place] [address] Oxygen ppres (Bld) 84.2 mm[Hg] Normal 80.0-100.0 [facility] Comment on above: Performed By: #### H EMDF, PT, BMP3M, PHOS3, MG3, CK3 #### [address] #### VD25H #### [facility] [address] [place] [address] Oxygen saturation in Blood 96.2 % Normal 95.0-100.0 [facility] Comment on above: Performed By: #### H EMDF, PT, BMP3M, PHOS3, MG3, CK3 #### [place] [address] [address] [place] #### VD25H #### [place] [place] [address] pCO2 46.8 mm[Hg] High 35.0-45.0 [facility] Comment on above: Performed By: #### H EMDF, PT, BMP3M, PHOS3, MG3, CK3 #### [address] #### VD25H #### [place] [address] [place] [address] pH (Bld) 7.466 High 7.350-7.450 [facility] Comment on above: Performed By: #### H EMDF, PT, BMP3M, PHOS3, MG3, CK3 #### [address] #### VD25H #### [place] [address] [place] [address] Std Base Excess 8.2 mmol/L High -3.0-3.0 [facility] Comment on above: Performed By: #### H EMDF, PT, BMP3M, PHOS3, MG3, CK3 #### [address] #### VD25H #### [place] [address] [place] [address] FIO2 .30 Normal [facility] Comment on above: Performed By: #### H EMDF, PT, BMP3M, PHOS3, MG3, CK3 #### [address] #### VD25H #### [facility] [address] [place] [address] Basic Metabolic Panelon -3 Calcium mass conc 8.5 mg/dL Normal 8.4-10.4 [facility] Comment on above: Performed By: #### H EMDF, PT, BMP3M, PHOS3, MG3, CK3 #### [place] [address] [address] [facility], [place] #### VD25H #### [facility] [address] [place] [address] Glucose mass conc 163 mg/dL High 70-100 [facility] Comment on above: Performed By: #### H EMDF, PT, BMP3M, PHOS3, MG3, CK3 #### [address] [place] #### VD25H #### [facility] [address] [place] [address] Anion gap molar conc 10 Normal [facility] Comment on above: Performed By: #### H EMDF, PT, BMP3M, PHOS3, MG3, CK3 #### [place] [address] [address] [facility], [place] #### VD25H #### [facility] [address] [place] [address] CO2 molar conc 37 mmol/L High 22-30 [facility] Comment on above: Performed By: #### H EMDF, PT, BMP3M, PHOS3, MG3, CK3 #### [place] [address] [address] [facility], [place] #### VD25H #### [facility] [address] [place] [address] Creatinine mass conc 0.57 mg/dL Normal 0.52-1.25 [facility] Comment on above: Performed By: #### H EMDF, PT, BMP3M, PHOS3, MG3, CK3 #### [place] [address] [facility] [facility] [place] #### VD25H #### [facility] [address] [place] [address] GFR/1.73 sq M predicted among blacks MDRD vol rate/area (S/P/Bld) mL/min/{1.73_m2} Normal >60 [facility] Comment on above: Performed By: #### H EMDF, PT, BMP3M, PHOS3, MG3, CK3 #### [address] [place] #### VD25H #### [facility] [address] [place] [address] GFR/1.73 sq M predicted among non-blacks MDRD vol rate/area (S/P/Bld) mL/min/{1.73_m2} Normal >60 [facility] Comment on above: Result Comment: Sour ce- MDRD equation with creatinine calibration to IDMS(NKDEP) eGFR not recommended for drug dose adjustment Performed By: #### H EMDF, PT, BMP3M, PHOS3, MG3, CK3 #### [address] #### VD25H #### [facility] [address] [place] [address] Urea nitrogen mass conc 30 mg/dL High 7-20 [facility] Comment on above: Performed By: #### H EMDF, PT, BMP3M, PHOS3, MG3, CK3 #### [address] #### VD25H #### [facility] [address] [place] [address] Chloride molar conc 95 mmol/L Low 98-107 [facility] Comment on above: Performed By: #### H EMDF, PT, BMP3M, PHOS3, MG3, CK3 #### [address] #### VD25H #### [place] [place] [address] Potassium molar conc 3.3 mmol/L Low 3.5-5.1 [facility] Comment on above: Performed By: #### H EMDF, PT, BMP3M, PHOS3, MG3, CK3 #### [facility] [address] [place] [address] #### VD25H #### [facility] [address] [place] [address] Sodium molar conc 141 mmol/L Normal 135-145 [facility] Comment on above: Performed By: #### H EMDF, PT, BMP3M, PHOS3, MG3, CK3 #### [facility] [address] [place] [address] #### VD25H #### [facility] [address] [place] [address] CR Chest Portableon 07-30-19 19 CR Chest Portable Patient Name: KATHYA HOOPER Diagnostic Radiology Exam Date/Time 07/29/2018 07:01:44 EDT Exam CR Chest Portable Ordering Physician MARIA EUGENIA PEREZ Accession Number [id number] CPT4 Codes 35269 () Reason For Exam ETT placement Report [...] Transcribed Date and Time: 07/29/2018 9:04 Normal [facility] Glucose,Bedsideon 07-29-2018 Glucose mass conc 124 mg/dL High 70-100 [facility] Comment on above: Result Comment: Test performed by glucose meter. Results may be 10%-15% lower than serum/plasma values. (CLIA ID [id number]) Performed By: #### H EMDF, PT, BMP3M, PHOS3, MG3, CK3 #### [employer] [facility] [address] [place] [id number] #### VD25H #### [employer] [facility] [address] [place] [address] Glucose mass conc 175 mg/dL High 70-100 [facility] Comment on above: Result Comment: Test performed by glucose meter. Results may be 10%-15% lower than serum/plasma values. (CLIA ID [id number]) Performed By: #### H EMDF, PT, BMP3M, PHOS3, MG3, CK3 #### [employer] [facility] [address] [address] #### VD25H #### [employer] [facility] [address] [place] [address] Glucose mass conc 138 mg/dL High 70-100 [facility] Comment on above: Result Comment: Test performed by glucose meter. Results may be 10%-15% lower than serum/plasma values. (CLIA ID [id number]) Performed By: #### H EMDF, PT, BMP3M, PHOS3, MG3, CK3 #### [employer] [facility] [address] [place] [id number] #### VD25H #### [employer] [facility] [address] [place] [address] Glucose mass conc 147 mg/dL High 70-[address] Comment on above: Result Comment: Test performed by glucose meter. Results may be 10%-15% lower than serum/plasma values. (CLIA ID [id number]) Performed By: #### H EMDF, PT, BMP3M, PHOS3, MG3, CK3 #### [employer] [facility] [address] [address] #### VD25H #### [employer] [facility] [address] [place] [address] Hemogram w/ Autodiffon 07-29 Erythrocyte distribution width Ratio (RBC) 13.8 % Normal 11.5-14.5 [facility] Comment on above: Performed By: #### H EMDF, PT, BMP3M, PHOS3, MG3, CK3 #### [address] #### VD25H #### [facility] [address] [place] [address] Hematocrit Volume Fraction (Bld) 32.9 % Low 40.0-52.0 [facility] Comment on above: Performed By: #### H EMDF, PT, BMP3M, PHOS3, MG3, CK3 #### [address] #### VD25H #### [facility] [address] [place] [address] Hemoglobin mass conc (Bld) 11.0 g/dL Low 13.0-18.0 [facility] Comment on above: Performed By: #### H EMDF, PT, BMP3M, PHOS3, MG3, CK3 #### [address] #### VD25H #### [facility] [address] [facility] [place] [address] MCH Entitic mass (RBC) 29.0 pg Normal 26.0-34.0 [facility] Comment on above: Performed By: #### H EMDF, PT, BMP3M, PHOS3, MG3, CK3 #### [address] #### VD25H #### [facility] [address] [place] [address] MCHC mass conc (RBC) 33.6 % Normal 32.0-36.0 [facility] Comment on above: Performed By: #### H EMDF, PT, BMP3M, PHOS3, MG3, CK3 #### [address] #### VD25H #### [facility] [address] [place] [address] MCV Entitic volume (RBC) 86.3 fL Normal 80.0-98.0 [facility] Comment on above: Performed By: #### H EMDF, PT, BMP3M, PHOS3, MG3, CK3 #### [address] #### VD25H #### [facility] [address] [place] [address] Platelet mean volume Entitic volume (Bld) 8.1 fL Normal 7.4-10.4 [facility] Comment on above: Performed By: #### H EMDF, PT, BMP3M, PHOS3, MG3, CK3 #### [address] #### VD25H #### [place] [address] [place] [address] Platelets #/vol (Bld) 501 10*3/uL High 140-440 [facility] Comment on above: Performed By: #### H EMDF, PT, BMP3M, PHOS3, MG3, CK3 #### [address] #### VD25H #### [facility] [address] [place] [address] RBC #/vol (Bld) 3.81 10*6/uL Low 4.40-5.90 [facility] Comment on above: Performed By: #### H EMDF, PT, BMP3M, PHOS3, MG3, CK3 #### [address] #### VD25H #### [facility] [address] [place] [address] WBC #/vol (Bld) 20.8 10*3/uL High 3.6-10.7 [facility] Comment on above: Performed By: #### H EMDF, PT, BMP3M, PHOS3, MG3, CK3 #### [address] [place], [place] #### VD25H #### [facility] [address] [place] [address] Magnesiumon 07-29-2018 Magnesium mass conc 2.5 mg/dL High 1.6-2.3 [facility] Comment on above: Performed By: #### H EMDF, PT, BMP3M, PHOS3, MG3, CK3 #### [address] [place] #### VD25H #### [facility] [address] [place] [address] Manual Diffon 07-29-2018 Abs Neutrophile Cnt 17.3 10*3/uL High 2.2-8.2 [facility] Comment on above: Performed By: #### H EMDF, PT, BMP3M, PHOS3, MG3, CK3 #### [address] #### VD25H #### [facility] [address] [place] [address] Bands 1 % Normal 0-3 [facility] Comment on above: Performed By: #### H EMDF, PT, BMP3M, PHOS3, MG3, CK3 #### [address] #### VD25H #### [facility] [address] [place] [address] Eosinophils #/vol (Bld) 0.6 10*3/uL High 0.0-0.5 [facility] Comment on above: Performed By: #### H EMDF, PT, BMP3M, PHOS3, MG3, CK3 #### [address] #### VD25H #### [facility] [address] [place] [address] Eosinophils/100 WBC (Bld) 3 % Normal 1-6 [facility] Comment on above: Performed By: #### H EMDF, PT, BMP3M, PHOS3, MG3, CK3 #### [facility] [address] [place], [place] #### VD25H #### [facility] [address] [place] [address] Lymphocytes #/vol (Bld) 2.3 10*3/uL Normal 1.1-4.5 [facility] Comment on above: Performed By: #### H EMDF, PT, BMP3M, PHOS3, MG3, CK3 #### [address] [place], [place] #### VD25H #### [facility] [address] [place] [address] Lymphocytes/100 WBC (Bld) 11 % Low 20-40 [facility] Comment on above: Performed By: #### H EMDF, PT, BMP3M, PHOS3, MG3, CK3 #### [address] #### VD25H #### [facility] [address] [place] [address] Metamyelocytes 1 % Abnormal <1 [facility] Comment on above: Performed By: #### H EMDF, PT, BMP3M, PHOS3, MG3, CK3 #### [address] [place], [place] #### VD25H #### [facility] [address] [place] [address] Monocytes #/vol (Bld) 0.4 10*3/uL Normal 0.2-1.1 [facility] Comment on above: Performed By: #### H EMDF, PT, BMP3M, PHOS3, MG3, CK3 #### [address] [place] #### VD25H #### [facility] [address] [place] [address] Monocytes/100 WBC (Bld) 2 % Normal 2-10 [facility] Comment on above: Performed By: #### H EMDF, PT, BMP3M, PHOS3, MG3, CK3 #### [address] [place] #### VD25H #### [facility] [address] [place] [address] RBC morphology finding Nom (Bld) See Prev Normal [facility] Comment on above: Performed By: #### H EMDF, PT, BMP3M, PHOS3, MG3, CK3 #### [address] [place] #### VD25H #### [facility] [address] [place] [address] Seg Neutrophils 82 % High 40-80 [facility] Comment on above: Performed By: #### H EMDF, PT, BMP3M, PHOS3, MG3, CK3 #### [address] [place], [place] #### VD25H #### [facility] [address] [place] [address] Abs Baso Cnt 0.0 10*3/uL Normal 0.0-0.2 [facility] Comment on above: Performed By: #### H EMDF, PT, BMP3M, PHOS3, MG3, CK3 #### [address] [place] #### VD25H #### [facility] [address] [place] [address] Basophils/100 WBC (Bld) 0 % Normal 0-2 [facility] Comment on above: Performed By: #### H EMDF, PT, BMP3M, PHOS3, MG3, CK3 #### [address] [place] #### VD25H #### [facility] [address] [place] [address] Cells counted 100 Normal [facility] Comment on above: Performed By: #### H EMDF, PT, BMP3M, PHOS3, MG3, CK3 #### [address] [place] #### VD25H #### [facility] [address] [place] [address] Phosphoruson 07-29-2018 Phosphate mass conc 4.2 mg/dL Normal 2.5-4.5 [facility] Comment on above: Performed By: #### H EMDF, PT, BMP3M, PHOS3, MG3, CK3 #### [address] #### VD25H #### [facility] [address] [place] [address] Procalcitoninon 07-29-2018 Protein mass conc 0.11 ng/mL Abnormal <0.10 [facility] Comment on above: Performed By: #### H EMDF, PT, BMP3M, PHOS3, MG3, CK3 #### [address] #### VD25H #### [address] [place] [address] Interpretation See Below Normal [facility] Comment on above: Result Comment: PCT <0.50 = Low risk of severe sepsis and/or septic shock. PCT >2.00 = High risk of severe sepsis and/or septic shock. Performed By: #### H EMDF, PT, BMP3M, PHOS3, MG3, CK3 #### [address] #### VD25H #### [address] [place] [address] Vancomycin Troughon 07-30-19 19 Vancomycin Trough 12.2 ug/mL Low 15.0-20.0 [facility] Comment on above: Result Comment: . Performed By: #### H EMDF, PT, BMP3M, PHOS3, MG3, CK3 #### [address] #### VD25H #### [place] [address] [place] [address] Basic Metabolic Panelon 07-01 Calcium mass conc 8.6 mg/dL Normal 8.4-10.4 [facility] Comment on above: Performed By: #### H EMDF, PT, BMP3M, PHOS3, MG3, CK3 #### [address] [place] #### VD25H #### [facility] [address] [place] [address] Glucose mass conc 158 mg/dL High 70-100 [facility] Comment on above: Performed By: #### H EMDF, PT, BMP3M, PHOS3, MG3, CK3 #### [address] [place] #### VD25H #### [facility] [address] [place] [address] Urea nitrogen mass conc 29 mg/dL High 7-20 [facility] Comment on above: Performed By: #### H EMDF, PT, BMP3M, PHOS3, MG3, CK3 #### [place] [address] [facility], [place] #### VD25H #### [facility] [address] [place] [address] Anion gap molar conc 9 Normal [facility] Comment on above: Performed By: #### H EMDF, PT, BMP3M, PHOS3, MG3, CK3 #### [address] [address] [place] #### VD25H #### [facility] [address] [place] [address] CO2 molar conc 32 mmol/L High 22-30 [facility] Comment on above: Performed By: #### H EMDF, PT, BMP3M, PHOS3, MG3, CK3 #### [place] [address] [facility], [place] #### VD25H #### [facility] [address] [place] [address] Creatinine mass conc 0.61 mg/dL Normal 0.52-1.25 [facility] Comment on above: Performed By: #### H EMDF, PT, BMP3M, PHOS3, MG3, CK3 #### [facility] [address] [place] #### VD25H #### [facility] [address] [place] [address] GFR/1.73 sq M predicted among blacks MDRD vol rate/area (S/P/Bld) mL/min/{1.73_m2} Normal >60 [facility] Comment on above: Performed By: #### H EMDF, PT, BMP3M, PHOS3, MG3, CK3 #### [address] #### VD25H #### [facility] [address] [place] [address] GFR/1.73 sq M predicted among non-blacks MDRD vol rate/area (S/P/Bld) mL/min/{1.73_m2} Normal >60 [facility] Comment on above: Result Comment: Sour ce- MDRD equation with creatinine calibration to IDMS(NKDEP) eGFR not recommended for drug dose adjustment Performed By: #### H EMDF, PT, BMP3M, PHOS3, MG3, CK3 #### [address] #### VD25H #### [facility] [address] [place] [address] Potassium molar conc 3.6 mmol/L Normal 3.5-5.1 [facility] Comment on above: Performed By: #### H EMDF, PT, BMP3M, PHOS3, MG3, CK3 #### [address], [place] #### VD25H #### [facility] [address] [place] [address] Chloride molar conc 100 mmol/L Normal 98-107 [facility] Comment on above: Performed By: #### H EMDF, PT, BMP3M, PHOS3, MG3, CK3 #### [address] #### VD25H #### [facility] [employer] [facility] [address] [place] [address] Sodium molar conc 141 mmol/L Normal 135-145 [facility] Comment on above: Performed By: #### H EMDF, PT, BMP3M, PHOS3, MG3, CK3 #### [facility] [employer] [address] [facility] [place] #### VD25H #### [facility] [address] [place] [address] CR Chest Portableon 07-29-19 19 CR Chest Portable Patient Name: KATHYA HOOPER Diagnostic Radiology Exam Date/Time 07/28/2018 07:09:40 EDT Exam CR Chest Portable Ordering Physician MARIA EUGENIA PEREZ Accession Number [id number] CPT4 Codes 92905 () Reason For Exam ETT placement Report [...] Transcribed Date and Time: 07/28/2018 7:16 Normal [facility] Glucose,Bedsideon 07-28-2018 Glucose mass conc 149 mg/dL High 70-[address] Comment on above: Result Comment: Test performed by glucose meter. Results may be 10%-15% lower than serum/plasma values. (CLIA ID [id number]) Performed By: #### H EMDF, PT, BMP3M, PHOS3, MG3, CK3 #### [address] #### VD25H #### [facility] [address] [place] [address] Glucose mass conc 142 mg/dL High 70-100 [facility] Comment on above: Result Comment: Test performed by glucose meter. Results may be 10%-15% lower than serum/plasma values. (CLIA ID [id number]) Performed By: #### H EMDF, PT, BMP3M, PHOS3, MG3, CK3 #### [address] #### VD25H #### [facility] [address] [place] [address] Hemogram w/ Autodiffon 07-28 Erythrocyte distribution width Ratio (RBC) 13.8 % Normal 11.5-14.5 [facility] Comment on above: Performed By: #### H EMDF, PT, BMP3M, PHOS3, MG3, CK3 #### [address] #### VD25H #### [facility] [address] [place] [address] Hematocrit Volume Fraction (Bld) 33.0 % Low 40.0-52.0 [facility] Comment on above: Performed By: #### H EMDF, PT, BMP3M, PHOS3, MG3, CK3 #### [address] #### VD25H #### [facility] [address] [facility] [place] [address] Hemoglobin mass conc (Bld) 11.0 g/dL Low 13.0-18.0 [facility] Comment on above: Performed By: #### H EMDF, PT, BMP3M, PHOS3, MG3, CK3 #### [address] #### VD25H #### [facility] [address] [place] [address] MCH Entitic mass (RBC) 28.7 pg Normal 26.0-34.0 [facility] Comment on above: Performed By: #### H EMDF, PT, BMP3M, PHOS3, MG3, CK3 #### [address] [place] #### VD25H #### [facility] [address] [place] [address] MCHC mass conc (RBC) 33.4 % Normal 32.0-36.0 [facility] Comment on above: Performed By: #### H EMDF, PT, BMP3M, PHOS3, MG3, CK3 #### [address] #### VD25H #### [place] [address] [place] [address] MCV Entitic volume (RBC) 86.0 fL Normal 80.0-98.0 [facility] Comment on above: Performed By: #### H EMDF, PT, BMP3M, PHOS3, MG3, CK3 #### [address] #### VD25H #### [facility] [address] [place] [address] Platelet mean volume Entitic volume (Bld) 8.4 fL Normal 7.4-10.4 [facility] Comment on above: Performed By: #### H EMDF, PT, BMP3M, PHOS3, MG3, CK3 #### [address] [place] #### VD25H #### [facility] [address] [place] [address] Platelets #/vol (Bld) 477 10*3/uL High 140-440 [facility] Comment on above: Performed By: #### H EMDF, PT, BMP3M, PHOS3, MG3, CK3 #### [address] #### VD25H #### [place] [address] [place] [address] RBC #/vol (Bld) 3.84 10*6/uL Low 4.40-5.90 [facility] Comment on above: Performed By: #### H EMDF, PT, BMP3M, PHOS3, MG3, CK3 #### [address] #### VD25H #### [facility] [address] [place] [address] WBC #/vol (Bld) 18.1 10*3/uL High 3.6-10.7 [facility] Comment on above: Performed By: #### H EMDF, PT, BMP3M, PHOS3, MG3, CK3 #### [address] #### VD25H #### [place] [address] [place] [address] Magnesiumon 07-28-2018 Magnesium mass conc 2.4 mg/dL High 1.6-2.3 [facility] Comment on above: Performed By: #### H EMDF, PT, BMP3M, PHOS3, MG3, CK3 #### [address] #### VD25H #### [place] [address] [place] [address] Manual Diffon 07-28-2018 Abs Neutrophile Cnt 14.8 10*3/uL High 2.2-8.2 [facility] Comment on above: Performed By: #### H EMDF, PT, BMP3M, PHOS3, MG3, CK3 #### [address] #### VD25H #### [place] [address] [place] [address] Anisocytosis Ql (Bld) Slight Normal [facility] Comment on above: Performed By: #### H EMDF, PT, BMP3M, PHOS3, MG3, CK3 #### [address] #### VD25H #### [facility] [address] [place] [address] Hypochromia Slight Normal [facility] Comment on above: Performed By: #### H EMDF, PT, BMP3M, PHOS3, MG3, CK3 #### [address] [place] #### VD25H #### [facility] [address] [place] [address] Lymphocytes #/vol (Bld) 1.3 10*3/uL Normal 1.1-4.5 [facility] Comment on above: Performed By: #### H EMDF, PT, BMP3M, PHOS3, MG3, CK3 #### [address] [place] #### VD25H #### [facility] [address] [place] [address] Lymphocytes/100 WBC (Bld) 7 % Low 20-40 [facility] Comment on above: Performed By: #### H EMDF, PT, BMP3M, PHOS3, MG3, CK3 #### [address] [place] #### VD25H #### [facility] [address] [place] [address] Microcytosis Slight Normal [facility] Comment on above: Performed By: #### H EMDF, PT, BMP3M, PHOS3, MG3, CK3 #### [address] [place] #### VD25H #### [facility] [address] [place] [address] Monocytes #/vol (Bld) 2.0 10*3/uL High 0.2-1.1 [facility] Comment on above: Performed By: #### H EMDF, PT, BMP3M, PHOS3, MG3, CK3 #### [address] [place] #### VD25H #### [facility] [address] [place] [address] Monocytes/100 WBC (Bld) 11 % High 2-10 [facility] Comment on above: Performed By: #### H EMDF, PT, BMP3M, PHOS3, MG3, CK3 #### [facility] [address] [place] #### VD25H #### [facility] [address] [place] [address] RBC morphology finding Nom (Bld) ABNORMAL Normal [facility] Comment on above: Performed By: #### H EMDF, PT, BMP3M, PHOS3, MG3, CK3 #### [address] [place] #### VD25H #### [facility] [address] [place] [address] Seg Neutrophils 82 % High 40-80 [facility] Comment on above: Performed By: #### H EMDF, PT, BMP3M, PHOS3, MG3, CK3 #### [place] [address] [place] #### VD25H #### [facility] [address] [place] [address] Abs Baso Cnt 0.0 10*3/uL Normal 0.0-0.2 [facility] Comment on above: Performed By: #### H EMDF, PT, BMP3M, PHOS3, MG3, CK3 #### [address] [place] #### VD25H #### [facility] [address] [place] [address] Bands 0 % Normal 0-3 [facility] Comment on above: Performed By: #### H EMDF, PT, BMP3M, PHOS3, MG3, CK3 #### [address] [place] #### VD25H #### [facility] [address] [place] [address] Basophils/100 WBC (Bld) 0 % Normal 0-2 [facility] Comment on above: Performed By: #### H EMDF, PT, BMP3M, PHOS3, MG3, CK3 #### [place] [address] [place] #### VD25H #### [facility] [address] [place] [address] Cells counted 100 Normal [facility] Comment on above: Performed By: #### H EMDF, PT, BMP3M, PHOS3, MG3, CK3 #### [address] #### VD25H #### [facility] [address] [place] [address] Eosinophils #/vol (Bld) 0.0 10*3/uL Normal 0.0-0.5 [facility] Comment on above: Performed By: #### H EMDF, PT, BMP3M, PHOS3, MG3, CK3 #### [address] #### VD25H #### [facility] [address] [place] [address] Eosinophils/100 WBC (Bld) 0 % Low 1-6 [facility] Comment on above: Performed By: #### H EMDF, PT, BMP3M, PHOS3, MG3, CK3 #### [address] #### VD25H #### [facility] [address] [place] [address] Phosphoruson 07-28-2018 Phosphate mass conc 4.4 mg/dL Normal 2.5-4.5 [facility] Comment on above: Performed By: #### H EMDF, PT, BMP3M, PHOS3, MG3, CK3 #### [address] #### VD25H #### [facility] [address] [place] [address] Vancomycin Troughon 03-30-20 19 Vancomycin Trough 12.9 ug/mL Low 15.0-20.0 [facility] Comment on above: Result Comment: . Performed By: #### H EMDF, PT, BMP3M, PHOS3, MG3, CK3 #### [address] #### VD25H #### [facility] [address] [place] [address] Arterial Blood Gaseson 07-27 CO2 molar conc 28.4 mmol/L High 23.0-27.0 [facility] Comment on above: Performed By: #### H EMDF, PT, BMP3M, PHOS3, MG3, CK3 #### [address] #### VD25H #### [facility] [address] [place] [address] HCO3 molar conc (Bld) 27.2 mmol/L High 21.0-25.0 [facility] Comment on above: Performed By: #### H EMDF, PT, BMP3M, PHOS3, MG3, CK3 #### [address] #### VD25H #### [facility] [address] [facility] [place] [address] Hemoglobin mass conc (Bld) 11.7 g/dL Normal ScreenOnly [facility] Comment on above: Performed By: #### H EMDF, PT, BMP3M, PHOS3, MG3, CK3 #### [address] #### VD25H #### [facility] [address] [facility] [place] [address] Oxygen ppres (Bld) 91.3 mm[Hg] Normal 80.0-100.0 [facility] Comment on above: Performed By: #### H EMDF, PT, BMP3M, PHOS3, MG3, CK3 #### [address] #### VD25H #### [facility] [address] [place] [address] Oxygen saturation in Blood 96.9 % Normal 95.0-100.0 [facility] Comment on above: Performed By: #### H EMDF, PT, BMP3M, PHOS3, MG3, CK3 #### [place] [place] #### VD25H #### [facility] [address] [place] [address] pCO2 39.0 mm[Hg] Normal 35.0-45.0 [facility] Comment on above: Performed By: #### H EMDF, PT, BMP3M, PHOS3, MG3, CK3 #### [place] [address] [address] [facility], [place] #### VD25H #### [place] [address] [place] [address] pH (Bld) 7.461 High 7.350-7.450 [facility] Comment on above: Performed By: #### H EMDF, PT, BMP3M, PHOS3, MG3, CK3 #### [address] [facility], [place] #### VD25H #### [facility] [address] [place] [address] Std Base Excess 3.2 mmol/L High -3.0-3.0 [facility] Comment on above: Performed By: #### H EMDF, PT, BMP3M, PHOS3, MG3, CK3 #### [address] [facility], [place] #### VD25H #### [facility] [address] [place] [address] FIO2 No data Normal [facility] Comment on above: Performed By: #### H EMDF, PT, BMP3M, PHOS3, MG3, CK3 #### [place] [address] [facility], [place] #### VD25H #### [facility] [address] [place] [address] Basic Metabolic Panelon 03-2 Anion gap molar conc 12 Normal [facility] Comment on above: Performed By: #### H EMDF, PT, BMP3M, PHOS3, MG3, CK3 #### [facility] [address] [place] #### VD25H #### [facility] [address] [place] [address] Calcium mass conc 8.3 mg/dL Low 8.4-10.4 [facility] Comment on above: Performed By: #### H EMDF, PT, BMP3M, PHOS3, MG3, CK3 #### [address] #### VD25H #### [facility] [address] [place] [address] CO2 molar conc 28 mmol/L Normal 22-30 [facility] Comment on above: Performed By: #### H EMDF, PT, BMP3M, PHOS3, MG3, CK3 #### [address] #### VD25H #### [facility] [address] [place] [address] Glucose mass conc 156 mg/dL High 70-100 [facility] Comment on above: Performed By: #### H EMDF, PT, BMP3M, PHOS3, MG3, CK3 #### [place] [address] [place] #### VD25H #### [facility] [address] [place] [address] Urea nitrogen mass conc 21 mg/dL High 7-20 [facility] Comment on above: Performed By: #### H EMDF, PT, BMP3M, PHOS3, MG3, CK3 #### [address] #### VD25H #### [facility] [address] [place] [address] Creatinine mass conc 0.53 mg/dL Normal 0.52-1.25 [facility] Comment on above: Performed By: #### H EMDF, PT, BMP3M, PHOS3, MG3, CK3 #### [address] #### VD25H #### [facility] [address] [place] [address] GFR/1.73 sq M predicted among blacks MDRD vol rate/area (S/P/Bld) mL/min/{1.73_m2} Normal >60 [facility] Comment on above: Performed By: #### H EMDF, PT, BMP3M, PHOS3, MG3, CK3 #### [address] #### VD25H #### [facility] [address] [facility] [place] [address] GFR/1.73 sq M predicted among non-blacks MDRD vol rate/area (S/P/Bld) mL/min/{1.73_m2} Normal >60 [facility] Comment on above: Result Comment: Sour ce- MDRD equation with creatinine calibration to IDMS(NKDEP) eGFR not recommended for drug dose adjustment Performed By: #### H EMDF, PT, BMP3M, PHOS3, MG3, CK3 #### [facility] [address] [place], [place] #### VD25H #### [facility] [address] [place] [address] Potassium molar conc 3.2 mmol/L Low 3.5-5.1 [facility] Comment on above: Performed By: #### H EMDF, PT, BMP3M, PHOS3, MG3, CK3 #### [address] #### VD25H #### [facility] [address] [place] [address] Chloride molar conc 99 mmol/L Normal 98-107 [facility] Comment on above: Performed By: #### H EMDF, PT, BMP3M, PHOS3, MG3, CK3 #### [facility] [address] [place] [address] #### VD25H #### [facility] [address] [place] [address] Sodium molar conc 139 mmol/L Normal 135-[address] [facility] Comment on above: Performed By: #### H EMDF, PT, BMP3M, PHOS3, MG3, CK3 #### [facility] [address] [place] [address] #### VD25H #### [facility] [address] [place] [address] CR Chest Portableon 07-28-19 19 CR Chest Portable Patient Name: KATHYA HOOPER Diagnostic Radiology Exam Date/Time 07/27/2018 07:08:59 EDT Exam CR Chest Portable Ordering Physician MARIA EUGENIA PEREZ Accession Number [id number] CPT4 Codes 19709 () Reason For Exam ETT placement Report [...] Transcribed Date and Time: 07/27/2018 8:02 Normal [facility] Glucose,Bedsideon 07-27-2018 Glucose mass conc 151 mg/dL High 70-[address] [facility] Comment on above: Result Comment: Test performed by glucose meter. Results may be 10%-15% lower than serum/plasma values. (CLIA ID [id number]) Performed By: #### H EMDF, PT, BMP3M, PHOS3, MG3, CK3 #### [facility] [address] [place], [place] #### VD25H #### [facility] [address] [place] [address] Glucose mass conc 131 mg/dL High 70-[address] [facility] Comment on above: Result Comment: Test performed by glucose meter. Results may be 10%-15% lower than serum/plasma values. (CLIA ID [id number]) Performed By: #### H EMDF, PT, BMP3M, PHOS3, MG3, CK3 #### [facility] [address] [place] [address] #### VD25H #### [employer] [facility] [address] [place] [address] Glucose mass conc 123 mg/dL High 70-[address] [facility] Comment on above: Result Comment: Test performed by glucose meter. Results may be 10%-15% lower than serum/plasma values. (CLIA ID [id number]) Performed By: #### H EMDF, PT, BMP3M, PHOS3, MG3, CK3 #### [facility] [address] [place] [address] #### VD25H #### [facility] [address] [place] [address] Glucose mass conc 133 mg/dL High 70-[address] [facility] Comment on above: Result Comment: Test performed by glucose meter. Results may be 10%-15% lower than serum/plasma values. (CLIA ID [id number]) Performed By: #### H EMDF, PT, BMP3M, PHOS3, MG3, CK3 #### [facility] [address] [place] [address] #### VD25H #### [facility] [address] [place] [address] Hemogram w/ Autodiffon 07-27 Erythrocyte distribution width Ratio (RBC) 13.5 % Normal 11.5-14.5 [facility] Comment on above: Performed By: #### H EMDF, PT, BMP3M, PHOS3, MG3, CK3 #### [address] #### VD25H #### [facility] [address] [place] [address] Hematocrit Volume Fraction (Bld) 32.5 % Low 40.0-52.0 [facility] Comment on above: Performed By: #### H EMDF, PT, BMP3M, PHOS3, MG3, CK3 #### [address] #### VD25H #### [facility] [address] [place] [address] Hemoglobin mass conc (Bld) 11.1 g/dL Low 13.0-18.0 [facility] Comment on above: Performed By: #### H EMDF, PT, BMP3M, PHOS3, MG3, CK3 #### [address] #### VD25H #### [facility] [address] [place] [address] MCH Entitic mass (RBC) 29.2 pg Normal 26.0-34.0 [facility] Comment on above: Performed By: #### H EMDF, PT, BMP3M, PHOS3, MG3, CK3 #### [address] #### VD25H #### [facility] [address] [place] [address] MCHC mass conc (RBC) 34.1 % Normal 32.0-36.0 [facility] Comment on above: Performed By: #### H EMDF, PT, BMP3M, PHOS3, MG3, CK3 #### [address] #### VD25H #### [facility] [address] [place] [address] MCV Entitic volume (RBC) 85.7 fL Normal 80.0-98.0 [facility] Comment on above: Performed By: #### H EMDF, PT, BMP3M, PHOS3, MG3, CK3 #### [facility] [address] [place], [place] #### VD25H #### [facility] [address] [place] [address] Platelet mean volume Entitic volume (Bld) 7.9 fL Normal 7.4-10.4 [facility] Comment on above: Performed By: #### H EMDF, PT, BMP3M, PHOS3, MG3, CK3 #### [place] [address] [place], [place] #### VD25H #### [facility] [address] [place] [address] Platelets #/vol (Bld) 466 10*3/uL High 140-440 [facility] Comment on above: Performed By: #### H EMDF, PT, BMP3M, PHOS3, MG3, CK3 #### [place] [address] [place] #### VD25H #### [facility] [address] [place] [address] RBC #/vol (Bld) 3.79 10*6/uL Low 4.40-5.90 [facility] Comment on above: Performed By: #### H EMDF, PT, BMP3M, PHOS3, MG3, CK3 #### [facility] [address] [place] #### VD25H #### [facility] [address] [place] [address] WBC #/vol (Bld) 18.7 10*3/uL High 3.6-10.7 [facility] Comment on above: Performed By: #### H EMDF, PT, BMP3M, PHOS3, MG3, CK3 #### [place] [address] [place], [place] #### VD25H #### [place] [address] [place] [address] Magnesiumon 07-27-2018 Magnesium mass conc 2.1 mg/dL Normal 1.6-2.3 [facility] Comment on above: Performed By: #### H EMDF, PT, BMP3M, PHOS3, MG3, CK3 #### [address] [place], [place] #### VD25H #### [facility] [address] [place] [address] Manual Diffon 07-27-2018 RBC morphology finding Nom (Bld) Normal Normal [facility] Comment on above: Performed By: #### H EMDF, PT, BMP3M, PHOS3, MG3, CK3 #### [address] #### VD25H #### [place] [address] [place] [address] Abs Neutrophile Cnt 14.2 10*3/uL High 2.2-8.2 [facility] Comment on above: Performed By: #### H EMDF, PT, BMP3M, PHOS3, MG3, CK3 #### [address] #### VD25H #### [place] [address] [place] [address] Atypical Lymphocytes 2 % Abnormal <1 [facility] Comment on above: Performed By: #### H EMDF, PT, BMP3M, PHOS3, MG3, CK3 #### [address] #### VD25H #### [place] [address] [place] [address] Bands 5 % High 0-3 [facility] Comment on above: Performed By: #### H EMDF, PT, BMP3M, PHOS3, MG3, CK3 #### [address] #### VD25H #### [place] [address] [place] [address] Eosinophils #/vol (Bld) 0.6 10*3/uL High 0.0-0.5 [facility] Comment on above: Performed By: #### H EMDF, PT, BMP3M, PHOS3, MG3, CK3 #### [facility] [address] [place] #### VD25H #### [facility] [address] [place] [address] Eosinophils/100 WBC (Bld) 3 % Normal 1-6 [facility] Comment on above: Performed By: #### H EMDF, PT, BMP3M, PHOS3, MG3, CK3 #### [address] #### VD25H #### [facility] [address] [place] [address] Lymphocytes #/vol (Bld) 2.1 10*3/uL Normal 1.1-4.5 [facility] Comment on above: Performed By: #### H EMDF, PT, BMP3M, PHOS3, MG3, CK3 #### [address] #### VD25H #### [facility] [address] [place] [address] Lymphocytes/100 WBC (Bld) 11 % Low 20-40 [facility] Comment on above: Performed By: #### H EMDF, PT, BMP3M, PHOS3, MG3, CK3 #### [address] [place] #### VD25H #### [facility] [address] [place] [address] Monocytes #/vol (Bld) 1.5 10*3/uL High 0.2-1.1 [facility] Comment on above: Performed By: #### H EMDF, PT, BMP3M, PHOS3, MG3, CK3 #### [address] #### VD25H #### [facility] [address] [place] [address] Monocytes/100 WBC (Bld) 8 % Normal 2-10 [facility] Comment on above: Performed By: #### H EMDF, PT, BMP3M, PHOS3, MG3, CK3 #### [facility] [address] [place] #### VD25H #### [facility] [address] [place] [address] NRBC 1 /100{WBCs} High -1-0 [facility] Comment on above: Result Comment: Newb orn (<60 days) 1-10 Adult <1 Performed By: #### H EMDF, PT, BMP3M, PHOS3, MG3, CK3 #### [address] [place] #### VD25H #### [facility] [address] [place] [address] Seg Neutrophils 71 % Normal 40-80 [facility] Comment on above: Performed By: #### H EMDF, PT, BMP3M, PHOS3, MG3, CK3 #### [address] #### VD25H #### [facility] [address] [place] [address] Abs Baso Cnt 0.0 10*3/uL Normal 0.0-0.2 [facility] Comment on above: Performed By: #### H EMDF, PT, BMP3M, PHOS3, MG3, CK3 #### [address] [place] #### VD25H #### [facility] [address] [place] [address] Basophils/100 WBC (Bld) 0 % Normal 0-2 [facility] Comment on above: Performed By: #### H EMDF, PT, BMP3M, PHOS3, MG3, CK3 #### [place] [address] [place] #### VD25H #### [facility] [address] [place] [address] Cells counted 100 Normal [facility] Comment on above: Performed By: #### H EMDF, PT, BMP3M, PHOS3, MG3, CK3 #### [facility] [address] [place] [address] #### VD25H #### [facility] [address] [place] [address] Phosphoruson 07-27-2018 Phosphate mass conc 3.0 mg/dL Normal 2.5-4.5 [facility] Comment on above: Performed By: #### H EMDF, PT, BMP3M, PHOS3, MG3, CK3 #### [facility] [address] [place] #### VD25H #### [facility] [address] [place] [address] VL Venous Duplex US Lower Ex t Bilateralon 07-27-2018 VL Venous Duplex US Lower Ext Bilateral Patient Name: KATHYA HOOPER Ultrasound Exam Date/Time 07/27/2018 10:56:18 EDT Exam VL Venous Duplex US Lower Ext Bilateral Ordering Physician ETIENNE MARTÍNEZ JULIE Accession Number [id number] CPT4 Codes 19506 () Reason For Exam edema Report [facility] --- Lower Extremity Venous Duplex Report Patient Name: Kathya Hooper : 1955 Study Date: 07/27/2018 W (63yrs) Age: 63 Account: [id number] Gender: M Loc: T209 BP: Ordering: Yesenia Martínez Technologist: Ordering Physician: Yesenia Martínez Cisco Engineer: Mary Man RVT Interpreting Physician: Ricardo Hall MD --- Location: [facility] --- INDICATIONS: Bilateral leg edema. [...] performed. The images were obtained using a [employer] E9 vascular ultrasound machine. The study was [...] --+ Electronically signed by: Ricardo Hall MD [id number] Final Dictated: 07/27/2018 12:55 pm Dictating Physician: RICARDO HALL Signed Date and Time: 07/27/2018 12:55 pm Signed by: RICARDO HALL [facility] Basic Metabolic Panelon 03- Calcium mass conc 7.9 mg/dL Low 8.4-10.4 [facility] Comment on above: Performed By: #### H EMDF, PT, BMP3M, PHOS3, MG3, CK3 #### [facility] [employer] [address] [place], [place] #### VD25H #### [facility] [employer] [facility] [address] [place] [address] Anion gap molar conc 9 Normal [facility] Comment on above: Performed By: #### H EMDF, PT, BMP3M, PHOS3, MG3, CK3 #### [facility] [employer] [address] [place] [address] #### VD25H #### [facility] [employer] [address] [place] [address] CO2 molar conc 24 mmol/L Normal 22-30 [facility] Comment on above: Performed By: #### H EMDF, PT, BMP3M, PHOS3, MG3, CK3 #### [address] #### VD25H #### [facility] [address] [place] [address] Creatinine mass conc 0.54 mg/dL Normal 0.52-1.25 [facility] Comment on above: Performed By: #### H EMDF, PT, BMP3M, PHOS3, MG3, CK3 #### [address] #### VD25H #### [facility] [address] [place] [address] GFR/1.73 sq M predicted among blacks MDRD vol rate/area (S/P/Bld) mL/min/{1.73_m2} Normal >60 [facility] Comment on above: Performed By: #### H EMDF, PT, BMP3M, PHOS3, MG3, CK3 #### [address] #### VD25H #### [facility] [address] [place] [address] GFR/1.73 sq M predicted among non-blacks MDRD vol rate/area (S/P/Bld) mL/min/{1.73_m2} Normal >60 [facility] Comment on above: Result Comment: Sour ce- MDRD equation with creatinine calibration to IDMS(NKDEP) eGFR not recommended for drug dose adjustment Performed By: #### H EMDF, PT, BMP3M, PHOS3, MG3, CK3 #### [address] #### VD25H #### [facility] [address] [place] [address] Glucose mass conc 166 mg/dL High 70-100 [facility] Comment on above: Performed By: #### H EMDF, PT, BMP3M, PHOS3, MG3, CK3 #### [place] [address] [place] #### VD25H #### [facility] [address] [place] [address] Urea nitrogen mass conc 21 mg/dL High 7-20 [facility] Comment on above: Performed By: #### H EMDF, PT, BMP3M, PHOS3, MG3, CK3 #### [place] [address] [place] #### VD25H #### [facility] [address] [place] [address] Chloride molar conc 107 mmol/L Normal 98-107 [facility] Comment on above: Performed By: #### H EMDF, PT, BMP3M, PHOS3, MG3, CK3 #### [place] [address] [place] #### VD25H #### [facility] [address] [place] [address] Potassium molar conc 3.7 mmol/L Normal 3.5-5.1 [facility] Comment on above: Performed By: #### H EMDF, PT, BMP3M, PHOS3, MG3, CK3 #### [place] [address] [place] #### VD25H #### [facility] [address] [place] [address] Sodium molar conc 140 mmol/L Normal 135-145 [facility] Comment on above: Performed By: #### H EMDF, PT, BMP3M, PHOS3, MG3, CK3 #### [place] [address] [address] [facility], [place] #### VD25H #### [facility] [address] [place] [address] CR Chest Portableon 07-27-19 19 CR Chest Portable Patient Name: KATHYA HOOPER [facility]: [id number] Diagnostic Radiology Exam Date/Time 07/26/2018 06:06:25 EDT Exam CR Chest Portable Ordering Physician MARIA EUGENIA PEREZ Accession Number [id number] CPT4 Codes 42680 () Reason For Exam ETT placement Report [...] Transcribed Date and Time: 07/26/2018 9:[address] Glucose,Bedsideon 07-26-2018 Glucose mass conc 160 mg/dL High 70-[address] [facility] Comment on above: Result Comment: Test performed by glucose meter. Results may be 10%-15% lower than serum/plasma values. (CLIA ID [id number]) Performed By: #### H EMDF, PT, BMP3M, PHOS3, MG3, CK3 #### [employer] [address] [place], [place] #### VD25H #### [employer] [address] [place] [address] Glucose mass conc 166 mg/dL High 70-[address] [facility] Comment on above: Result Comment: Test performed by glucose meter. Results may be 10%-15% lower than serum/plasma values. (CLIA ID [id number]) Performed By: #### H EMDF, PT, BMP3M, PHOS3, MG3, CK3 #### [employer] [address] [place] [address] #### VD25H #### [employer] [facility] [address] [place] [address] Glucose mass conc 183 mg/dL High 70-100 [facility] [employer] [facility] Comment on above: Result Comment: Test performed by glucose meter. Results may be 10%-15% lower than serum/plasma values. (CLIA ID [id number]) Performed By: #### H EMDF, PT, BMP3M, PHOS3, MG3, CK3 #### [facility] [employer] [address] #### VD25H #### [facility] [employer] [facility] [address] [place] [address] Glucose mass conc 151 mg/dL High 70-100 [facility] Comment on above: Result Comment: Test performed by glucose meter. Results may be 10%-15% lower than serum/plasma values. (CLIA ID [id number]) Performed By: #### H EMDF, PT, BMP3M, PHOS3, MG3, CK3 #### [facility] [employer] [address] #### VD25H #### [facility] [employer] [facility] [address] [facility] [place] [address] Hemogram w/ Autodiffon 07-26 Erythrocyte distribution width Ratio (RBC) 13.7 % Normal 11.5-14.5 [facility] Comment on above: Performed By: #### H EMDF, PT, BMP3M, PHOS3, MG3, CK3 #### [facility] [employer] [address] #### VD25H #### [facility] [employer] [facility] [address] [facility] [place] [address] Hematocrit Volume Fraction (Bld) 31.1 % Low 40.0-52.0 [facility] Comment on above: Performed By: #### H EMDF, PT, BMP3M, PHOS3, MG3, CK3 #### [address] #### VD25H #### [facility] [employer] [facility] [address] [facility] [place] [address] Hemoglobin mass conc (Bld) 10.6 g/dL Low 13.0-18.0 [facility] Comment on above: Performed By: #### H EMDF, PT, BMP3M, PHOS3, MG3, CK3 #### [place] [address] [place] #### VD25H #### [facility] [address] [place] [address] MCH Entitic mass (RBC) 29.2 pg Normal 26.0-34.0 [facility] Comment on above: Performed By: #### H EMDF, PT, BMP3M, PHOS3, MG3, CK3 #### [address] #### VD25H #### [facility] [address] [facility] [place] [address] MCHC mass conc (RBC) 34.0 % Normal 32.0-36.0 [facility] Comment on above: Performed By: #### H EMDF, PT, BMP3M, PHOS3, MG3, CK3 #### [address] #### VD25H #### [facility] [address] [facility] [place] [address] MCV Entitic volume (RBC) 86.1 fL Normal 80.0-98.0 [facility] Comment on above: Performed By: #### H EMDF, PT, BMP3M, PHOS3, MG3, CK3 #### [address] #### VD25H #### [facility] [address] [place] [address] Platelet mean volume Entitic volume (Bld) 8.3 fL Normal 7.4-10.4 [facility] Comment on above: Performed By: #### H EMDF, PT, BMP3M, PHOS3, MG3, CK3 #### [address] #### VD25H #### [facility] [address] [place] [address] Platelets #/vol (Bld) 364 10*3/uL Normal 140-440 [facility] Comment on above: Performed By: #### H EMDF, PT, BMP3M, PHOS3, MG3, CK3 #### [address] #### VD25H #### [facility] [address] [place] [address] RBC #/vol (Bld) 3.62 10*6/uL Low 4.40-5.90 [facility] Comment on above: Performed By: #### H EMDF, PT, BMP3M, PHOS3, MG3, CK3 #### [address] #### VD25H #### [place] [address] [place] [address] WBC #/vol (Bld) 15.2 10*3/uL High 3.6-10.7 [facility] Comment on above: Performed By: #### H EMDF, PT, BMP3M, PHOS3, MG3, CK3 #### [address] #### VD25H #### [place] [address] [place] [address] Magnesiumon 07-26-2018 Magnesium mass conc 2.0 mg/dL Normal 1.6-2.3 [facility] Comment on above: Performed By: #### H EMDF, PT, BMP3M, PHOS3, MG3, CK3 #### [address] #### VD25H #### [facility] [address] [place] [address] Manual Diffon 07-26-2018 Abs Neutrophile Cnt 12.8 10*3/uL High 2.2-8.2 [facility] Comment on above: Performed By: #### H EMDF, PT, BMP3M, PHOS3, MG3, CK3 #### [address] [place], [place] #### VD25H #### [facility] [address] [place] [address] Lymphocytes #/vol (Bld) 1.4 10*3/uL Normal 1.1-4.5 [facility] Comment on above: Performed By: #### H EMDF, PT, BMP3M, PHOS3, MG3, CK3 #### [facility] [address] [place] #### VD25H #### [facility] [address] [place] [address] Lymphocytes/100 WBC (Bld) 9 % Low 20-40 [facility] Comment on above: Performed By: #### H EMDF, PT, BMP3M, PHOS3, MG3, CK3 #### [address] #### VD25H #### [facility] [address] [place] [address] Monocytes #/vol (Bld) 1.1 10*3/uL Normal 0.2-1.1 [facility] Comment on above: Performed By: #### H EMDF, PT, BMP3M, PHOS3, MG3, CK3 #### [address] #### VD25H #### [facility] [address] [place] [address] Monocytes/100 WBC (Bld) 7 % Normal 2-10 [facility] Comment on above: Performed By: #### H EMDF, PT, BMP3M, PHOS3, MG3, CK3 #### [address] #### VD25H #### [facility] [address] [place] [address] RBC morphology finding Nom (Bld) Normal Normal [facility] Comment on above: Performed By: #### H EMDF, PT, BMP3M, PHOS3, MG3, CK3 #### [address] [place] #### VD25H #### [facility] [address] [place] [address] Seg Neutrophils 84 % High 40-80 [facility] Comment on above: Performed By: #### H EMDF, PT, BMP3M, PHOS3, MG3, CK3 #### [facility] [address] [place] #### VD25H #### [facility] [address] [place] [address] Abs Baso Cnt 0.0 10*3/uL Normal 0.0-0.2 [facility] Comment on above: Performed By: #### H EMDF, PT, BMP3M, PHOS3, MG3, CK3 #### [place] [address] [place] #### VD25H #### [facility] [address] [place] [address] Bands 0 % Normal 0-3 [facility] Comment on above: Performed By: #### H EMDF, PT, BMP3M, PHOS3, MG3, CK3 #### [place] [place] #### VD25H #### [facility] [address] [place] [address] Basophils/100 WBC (Bld) 0 % Normal 0-2 [facility] Comment on above: Performed By: #### H EMDF, PT, BMP3M, PHOS3, MG3, CK3 #### [place] [address] [place] #### VD25H #### [facility] [address] [place] [address] Cells counted 100 Normal [facility] Comment on above: Performed By: #### H EMDF, PT, BMP3M, PHOS3, MG3, CK3 #### [place] [address] [place] #### VD25H #### [facility] [address] [place] [address] Eosinophils #/vol (Bld) 0.0 10*3/uL Normal 0.0-0.5 [facility] Comment on above: Performed By: #### H EMDF, PT, BMP3M, PHOS3, MG3, CK3 #### [address] #### VD25H #### [facility] [address] [place] [address] Eosinophils/100 WBC (Bld) 0 % Low 1-6 [facility] Comment on above: Performed By: #### H EMDF, PT, BMP3M, PHOS3, MG3, CK3 #### [address] #### VD25H #### [place] [address] [place] [address] Phosphoruson 07-26-2018 Phosphate mass conc 3.1 mg/dL Normal 2.5-4.5 [facility] Comment on above: Performed By: #### H EMDF, PT, BMP3M, PHOS3, MG3, CK3 #### [address] #### VD25H #### [address] [place] [address] Vancomycin Troughon 07-27-19 19 Vancomycin Trough 8.9 ug/mL Low 15.0-20.0 [facility] Comment on above: Result Comment: . Performed By: #### H EMDF, PT, BMP3M, PHOS3, MG3, CK3 #### [address] #### VD25H #### [facility] [address] [facility] [place] [address] Arterial Blood Gaseson 07-25 CO2 molar conc 22.0 mmol/L Low 23.0-27.0 [facility] Comment on above: Performed By: #### H EMDF, PT, BMP3M, PHOS3, MG3, CK3 #### [address] [place], [place] #### VD25H #### [facility] [address] [place] [address] HCO3 molar conc (Bld) 21.1 mmol/L Normal 21.0-25.0 [facility] Comment on above: Performed By: #### H EMDF, PT, BMP3M, PHOS3, MG3, CK3 #### [place] [place] #### VD25H #### [facility] [address] [place] [address] Hemoglobin mass conc (Bld) 10.1 g/dL Normal ScreenOnly [facility] Comment on above: Performed By: #### H EMDF, PT, BMP3M, PHOS3, MG3, CK3 #### [address] #### VD25H #### [place] [address] [place] [address] Oxygen ppres (Bld) 88.3 mm[Hg] Normal 80.0-100.0 [facility] Comment on above: Performed By: #### H EMDF, PT, BMP3M, PHOS3, MG3, CK3 #### [address] #### VD25H #### [facility] [address] [place] [address] Oxygen saturation in Blood 96.8 % Normal 95.0-100.0 [facility] Comment on above: Performed By: #### H EMDF, PT, BMP3M, PHOS3, MG3, CK3 #### [address] #### VD25H #### [facility] [address] [place] [address] pCO2 29.9 mm[Hg] Low 35.0-45.0 [facility] Comment on above: Performed By: #### H EMDF, PT, BMP3M, PHOS3, MG3, CK3 #### [place] [address] [place] #### VD25H #### [facility] [address] [place] [address] pH (Bld) 7.467 High 7.350-7.450 [facility] Comment on above: Performed By: #### H EMDF, PT, BMP3M, PHOS3, MG3, CK3 #### [place] [address] [address] [facility], [place] #### VD25H #### [facility] [address] [place] [address] Std Base Excess -1.9 mmol/L Normal -3.0-3.0 [facility] Comment on above: Performed By: #### H EMDF, PT, BMP3M, PHOS3, MG3, CK3 #### [address] #### VD25H #### [place] [address] [place] [address] FIO2 .30 Normal [facility] Comment on above: Performed By: #### H EMDF, PT, BMP3M, PHOS3, MG3, CK3 #### [address] #### VD25H #### [facility] [address] [place] [address] Basic Metabolic Panelon 03-2 Calcium mass conc 8.1 mg/dL Low 8.4-10.4 [facility] Comment on above: Performed By: #### H EMDF, PT, BMP3M, PHOS3, MG3, CK3 #### [address] #### VD25H #### [facility] [address] [place] [address] Anion gap molar conc 8 Normal [facility] Comment on above: Performed By: #### H EMDF, PT, BMP3M, PHOS3, MG3, CK3 #### [place] [address] [place] #### VD25H #### [facility] [address] [place] [address] CO2 molar conc 24 mmol/L Normal 22-30 [facility] Comment on above: Performed By: #### H EMDF, PT, BMP3M, PHOS3, MG3, CK3 #### [address] #### VD25H #### [facility] [address] [place] [address] Creatinine mass conc 0.55 mg/dL Normal 0.52-1.25 [facility] Comment on above: Performed By: #### H EMDF, PT, BMP3M, PHOS3, MG3, CK3 #### [address] #### VD25H #### [facility] [address] [place] [address] GFR/1.73 sq M predicted among blacks MDRD vol rate/area (S/P/Bld) mL/min/{1.73_m2} Normal >60 [facility] Comment on above: Performed By: #### H EMDF, PT, BMP3M, PHOS3, MG3, CK3 #### [address] #### VD25H #### [facility] [address] [place] [address] GFR/1.73 sq M predicted among non-blacks MDRD vol rate/area (S/P/Bld) mL/min/{1.73_m2} Normal >60 [facility] Comment on above: Result Comment: Sour ce- MDRD equation with creatinine calibration to IDMS(NKDEP) eGFR not recommended for drug dose adjustment Performed By: #### H EMDF, PT, BMP3M, PHOS3, MG3, CK3 #### [address] #### VD25H #### [facility] [address] [place] [address] Glucose mass conc 184 mg/dL High 70-100 [facility] Comment on above: Performed By: #### H EMDF, PT, BMP3M, PHOS3, MG3, CK3 #### [facility] [address] [place] #### VD25H #### [facility] [address] [place] [address] Urea nitrogen mass conc 20 mg/dL Normal 7-20 [facility] Comment on above: Performed By: #### H EMDF, PT, BMP3M, PHOS3, MG3, CK3 #### [place] [place] #### VD25H #### [facility] [address] [place] [place] [address] Chloride molar conc 109 mmol/L High 98-107 [facility] Comment on above: Performed By: #### H EMDF, PT, BMP3M, PHOS3, MG3, CK3 #### [place] [address] [address] [place], [place] #### VD25H #### [facility] [address] [place] [address] Potassium molar conc 4.0 mmol/L Normal 3.5-5.1 [facility] Comment on above: Performed By: #### H EMDF, PT, BMP3M, PHOS3, MG3, CK3 #### [place] [address] [place], [place] #### VD25H #### [facility] [address] [place] [address] Sodium molar conc 141 mmol/L Normal 135-145 [facility] Comment on above: Performed By: #### H EMDF, PT, BMP3M, PHOS3, MG3, CK3 #### [place] [address] [place], [place] #### VD25H #### [facility] [address] [place] [address] CR Chest Portableon 07-26-19 19 CR Chest Portable Patient Name: KATHYA HOOPER Diagnostic Radiology Exam Date/Time 07/25/2018 06:39:42 EDT Exam CR Chest Portable Ordering Physician LORYJonn MARIA EUGENIA Accession Number [id number] CPT4 Codes 60090 () Reason For Exam ETT placement Report [...] Transcribed Date and Time: 07/25/2018 7:45 Normal [facility] CULTURE URINEon 07-25-2018 CULTURE URINE 1 [...] 4 S Trimeth/Sulfa(CHRISTI) <= 20 S Normal [facility] Comment on above: Order Comment: Speci men Source Comment:Urine, clean catch Performed By: #### H EMDF, PT, BMP3M, PHOS3, MG3, CK3 #### [facility] [employer] [facility] [address] [place], [place] #### VD25H #### [employer] [facility] [address] [place] [address] Glucose,Bedsideon 07-25-2018 Glucose mass conc 140 mg/dL High 70-[address] [facility] [employer] Comment on above: Result Comment: Test performed by glucose meter. Results may be 10%-15% lower than serum/plasma values. (CLIA ID [id number]) Performed By: #### H EMDF, PT, BMP3M, PHOS3, MG3, CK3 #### [facility] [employer] [facility] [address] [place], [place] #### VD25H #### [employer] [facility] [address] [place] [address] Glucose mass conc 158 mg/dL High 70-[address] [facility] [address] [employer] Comment on above: Result Comment: Test performed by glucose meter. Results may be 10%-15% lower than serum/plasma values. (CLIA ID [id number]) Performed By: #### H EMDF, PT, BMP3M, PHOS3, MG3, CK3 #### [facility] [employer] [facility] [address] [place], [place] #### VD25H #### [employer] [facility] [address] [place] [address] Glucose mass conc 172 mg/dL High 70-[address] [address] [facility] [employer] [facility] Comment on above: Result Comment: Test performed by glucose meter. Results may be 10%-15% lower than serum/plasma values. (CLIA ID [id number]) Performed By: #### H EMDF, PT, BMP3M, PHOS3, MG3, CK3 #### [facility] [address] [place], [place] #### VD25H #### [facility] [address] [place] [address] Glucose mass conc 169 mg/dL High 70-[address] [address] [employer] Comment on above: Result Comment: Test performed by glucose meter. Results may be 10%-15% lower than serum/plasma values. (CLIA ID [id number]) Performed By: #### H EMDF, PT, BMP3M, PHOS3, MG3, CK3 #### [facility] [address] [place] [address] #### VD25H #### [facility] [address] [place] [address] Glucose mass conc 165 mg/dL High 70-[address] [facility] [employer] Comment on above: Result Comment: Test performed by glucose meter. Results may be 10%-15% lower than serum/plasma values. (CLIA ID [id number]) Performed By: #### H EMDF, PT, BMP3M, PHOS3, MG3, CK3 #### [facility] [place] #### VD25H #### [facility] [address] [place] [address] Hemogram w/ Autodiffon 07-25 Erythrocyte distribution width Ratio (RBC) 13.6 % Normal 11.5-14.[address] [facility] [employer] Comment on above: Performed By: #### H EMDF, PT, BMP3M, PHOS3, MG3, CK3 #### [facility] [address] [place] [address] #### VD25H #### [facility] [address] [place] [address] Hematocrit Volume Fraction (Bld) 31.3 % Low 40.0-52.0 [facility] Comment on above: Performed By: #### H EMDF, PT, BMP3M, PHOS3, MG3, CK3 #### [facility] [address] [place] #### VD25H #### [facility] [address] [place] [address] Hemoglobin mass conc (Bld) 10.6 g/dL Low 13.0-18.0 [facility] Comment on above: Performed By: #### H EMDF, PT, BMP3M, PHOS3, MG3, CK3 #### [address] #### VD25H #### [facility] [address] [place] [address] MCH Entitic mass (RBC) 29.4 pg Normal 26.0-34.0 [facility] Comment on above: Performed By: #### H EMDF, PT, BMP3M, PHOS3, MG3, CK3 #### [address] #### VD25H #### [facility] [address] [place] [address] MCHC mass conc (RBC) 33.8 % Normal 32.0-36.0 [facility] Comment on above: Performed By: #### H EMDF, PT, BMP3M, PHOS3, MG3, CK3 #### [address] #### VD25H #### [facility] [address] [facility] [place] [address] MCV Entitic volume (RBC) 86.9 fL Normal 80.0-98.0 [facility] Comment on above: Performed By: #### H EMDF, PT, BMP3M, PHOS3, MG3, CK3 #### [address] #### VD25H #### [facility] [address] [place] [address] Platelet mean volume Entitic volume (Bld) 8.3 fL Normal 7.4-10.4 [facility] Comment on above: Performed By: #### H EMDF, PT, BMP3M, PHOS3, MG3, CK3 #### [facility] [address] [place], [place] #### VD25H #### [facility] [address] [place] [address] Platelets #/vol (Bld) 360 10*3/uL Normal 140-440 [facility] Comment on above: Performed By: #### H EMDF, PT, BMP3M, PHOS3, MG3, CK3 #### [address] #### VD25H #### [facility] [address] [place] [address] RBC #/vol (Bld) 3.61 10*6/uL Low 4.40-5.90 [facility] Comment on above: Performed By: #### H EMDF, PT, BMP3M, PHOS3, MG3, CK3 #### [address] #### VD25H #### [facility] [address] [place] [address] WBC #/vol (Bld) 14.7 10*3/uL High 3.6-10.7 [facility] Comment on above: Performed By: #### H EMDF, PT, BMP3M, PHOS3, MG3, CK3 #### [address] #### VD25H #### [facility] [address] [place] [address] Magnesiumon 07-25-2018 Magnesium mass conc 2.1 mg/dL Normal 1.6-2.3 [facility] Comment on above: Performed By: #### H EMDF, PT, BMP3M, PHOS3, MG3, CK3 #### [address] #### VD25H #### [facility] [address] [place] [address] Manual Diffon 07-25-2018 Abs Baso Cnt 0.1 10*3/uL Normal 0.0-0.2 [facility] Comment on above: Performed By: #### H EMDF, PT, BMP3M, PHOS3, MG3, CK3 #### [address] #### VD25H #### [place] [address] [place] [address] Abs Neutrophile Cnt 12.9 10*3/uL High 2.2-8.2 [facility] Comment on above: Performed By: #### H EMDF, PT, BMP3M, PHOS3, MG3, CK3 #### [address] #### VD25H #### [place] [address] [place] [address] Anisocytosis Ql (Bld) Slight Normal [facility] Comment on above: Performed By: #### H EMDF, PT, BMP3M, PHOS3, MG3, CK3 #### [address] #### VD25H #### [place] [address] [place] [address] Bands 4 % High 0-3 [facility] Comment on above: Performed By: #### H EMDF, PT, BMP3M, PHOS3, MG3, CK3 #### [address] #### VD25H #### [place] [address] [place] [address] Basophils/100 WBC (Bld) 1 % Normal 0-2 [facility] Comment on above: Performed By: #### H EMDF, PT, BMP3M, PHOS3, MG3, CK3 #### [address] #### VD25H #### [facility] [address] [place] [address] Eosinophils #/vol (Bld) 0.6 10*3/uL High 0.0-0.5 [facility] Comment on above: Performed By: #### H EMDF, PT, BMP3M, PHOS3, MG3, CK3 #### [facility] [address] [place] #### VD25H #### [facility] [address] [place] [address] Eosinophils/100 WBC (Bld) 4 % Normal 1-6 [facility] Comment on above: Performed By: #### H EMDF, PT, BMP3M, PHOS3, MG3, CK3 #### [address] [place] #### VD25H #### [facility] [address] [place] [address] Lymphocytes #/vol (Bld) 0.1 10*3/uL Low 1.1-4.5 [facility] Comment on above: Performed By: #### H EMDF, PT, BMP3M, PHOS3, MG3, CK3 #### [facility] [address] [place] #### VD25H #### [facility] [address] [place] [address] Lymphocytes/100 WBC (Bld) 1 % Low 20-40 [facility] Comment on above: Performed By: #### H EMDF, PT, BMP3M, PHOS3, MG3, CK3 #### [address] [place] #### VD25H #### [facility] [address] [place] [address] Macrocytosis Slight Normal [facility] Comment on above: Performed By: #### H EMDF, PT, BMP3M, PHOS3, MG3, CK3 #### [place] [address] [place] #### VD25H #### [facility] [address] [place] [address] Metamyelocytes 2 % Abnormal <1 [facility] Comment on above: Performed By: #### H EMDF, PT, BMP3M, PHOS3, MG3, CK3 #### [address] [place] #### VD25H #### [facility] [address] [place] [address] Microcytosis Slight Normal [facility] Comment on above: Performed By: #### H EMDF, PT, BMP3M, PHOS3, MG3, CK3 #### [address] #### VD25H #### [facility] [address] [place] [address] Monocytes #/vol (Bld) 0.6 10*3/uL Normal 0.2-1.1 [facility] Comment on above: Performed By: #### H EMDF, PT, BMP3M, PHOS3, MG3, CK3 #### [address] [address] [place], [place] #### VD25H #### [facility] [address] [place] [address] Monocytes/100 WBC (Bld) 4 % Normal 2-10 [facility] Comment on above: Performed By: #### H EMDF, PT, BMP3M, PHOS3, MG3, CK3 #### [address] [address] [place], [place] #### VD25H #### [facility] [address] [place] [address] RBC morphology finding Nom (Bld) ABNORMAL Normal [facility] Comment on above: Performed By: #### H EMDF, PT, BMP3M, PHOS3, MG3, CK3 #### [address] #### VD25H #### [facility] [address] [place] [address] Seg Neutrophils 84 % High 40-80 [facility] Comment on above: Performed By: #### H EMDF, PT, BMP3M, PHOS3, MG3, CK3 #### [place] [address] [place] #### VD25H #### [facility] [address] [place] [address] Cells counted 100 Normal [facility] Comment on above: Performed By: #### H EMDF, PT, BMP3M, PHOS3, MG3, CK3 #### [address] #### VD25H #### [facility] [address] [place] [address] Phosphoruson 07-25-2018 Phosphate mass conc 2.7 mg/dL Normal 2.5-4.5 [facility] Comment on above: Performed By: #### H EMDF, PT, BMP3M, PHOS3, MG3, CK3 #### [address] #### VD25H #### [facility] [address] [place] [address] Triglycerideon 07-25-2018 Triglyceride mass conc 82 mg/dL Normal <150 [facility] Comment on above: Performed By: #### H EMDF, PT, BMP3M, PHOS3, MG3, CK3 #### [address] #### VD25H #### [facility] [address] [place] [address] Basic Metabolic Panelon 06-30 Calcium mass conc 8.0 mg/dL Low 8.4-10.4 [facility] Comment on above: Performed By: #### H EMDF, PT, BMP3M, PHOS3, MG3, CK3 #### [address] #### VD25H #### [facility] [address] [place] [address] Anion gap molar conc 9 Normal [facility] Comment on above: Performed By: #### H EMDF, PT, BMP3M, PHOS3, MG3, CK3 #### [address] [address] #### VD25H #### [facility] [address] [place] [address] CO2 molar conc 23 mmol/L Normal 22-30 [facility] Comment on above: Performed By: #### H EMDF, PT, BMP3M, PHOS3, MG3, CK3 #### [address] [address] #### VD25H #### [facility] [address] [place] [address] Creatinine mass conc 0.71 mg/dL Normal 0.52-1.25 [facility] Comment on above: Performed By: #### H EMDF, PT, BMP3M, PHOS3, MG3, CK3 #### [address] #### VD25H #### [place] [address] [place] [address] GFR/1.73 sq M predicted among blacks MDRD vol rate/area (S/P/Bld) mL/min/{1.73_m2} Normal >60 [facility] Comment on above: Performed By: #### H EMDF, PT, BMP3M, PHOS3, MG3, CK3 #### [address] [address] #### VD25H #### [facility] [address] [facility] [place] [address] GFR/1.73 sq M predicted among non-blacks MDRD vol rate/area (S/P/Bld) mL/min/{1.73_m2} Normal >60 [facility] Comment on above: Result Comment: Sour ce- MDRD equation with creatinine calibration to IDMS(NKDEP) eGFR not recommended for drug dose adjustment Performed By: #### H EMDF, PT, BMP3M, PHOS3, MG3, CK3 #### [address] #### VD25H #### [facility] [address] [place] [address] Glucose mass conc 160 mg/dL High 70-100 [facility] Comment on above: Performed By: #### H EMDF, PT, BMP3M, PHOS3, MG3, CK3 #### [facility] [address] [facility], [place] #### VD25H #### [facility] [address] [place] [address] Urea nitrogen mass conc 28 mg/dL High 7-20 [facility] Comment on above: Performed By: #### H EMDF, PT, BMP3M, PHOS3, MG3, CK3 #### [place] [address] [facility], [place] #### VD25H #### [facility] [address] [place] [address] Chloride molar conc 109 mmol/L High 98-107 [facility] Comment on above: Performed By: #### H EMDF, PT, BMP3M, PHOS3, MG3, CK3 #### [place] [address] [facility], [place] #### VD25H #### [facility] [address] [place] [address] Potassium molar conc 3.7 mmol/L Normal 3.5-5.1 [facility] Comment on above: Performed By: #### H EMDF, PT, BMP3M, PHOS3, MG3, CK3 #### [place] [address] [facility], [place] #### VD25H #### [facility] [address] [place] [address] Sodium molar conc 141 mmol/L Normal 135-145 [facility] Comment on above: Performed By: #### H EMDF, PT, BMP3M, PHOS3, MG3, CK3 #### [facility] [address] [facility], [place] #### VD25 #### [facility] [address] [place] [address] CR Chest Portableon 07-25-19 CR Chest Portable Patient Name: KATHYA HOOPER Diagnostic Radiology Exam Date/Time 07/24/2018 13:12:47 EDT Exam CR Chest Portable Ordering Physician DO WOLFF KATHRYN C Accession Number [id number] CPT4 Codes 99098 () Reason For Exam line placement Report [...] Transcribed Date and Time: 07/24/2018 3:10 Normal [facility] CR Chest Portable Patient Name: KATHYA HOOPER Diagnostic Radiology Exam Date/Time 07/24/2018 07:11:26 EDT Exam CR Chest Portable Ordering Physician MARIA EUGENIA PEREZ Accession Number [id number] CPT4 Codes 29763 () Reason For Exam ETT placement Report [...] Transcribed Date and Time: 07/24/2018 7:31 Normal [facility] CULT./ST. RESPIRATORYon 06-30 CULT./ST. RESPIRATORY [...] 1 S Trimeth/Sulfa(CHRISTI) <= 20 S Normal [facility] Comment on above: Order Comment: Speci men Source Comment:Endotracheal Performed By: #### H EMDF, PT, BMP3M, PHOS3, MG3, CK3 #### [facility] [address] [place] [address] #### VD25H #### [facility] [address] [facility] [place] [address] CULTURE URINEon 07-24-2018 CULTURE URINE 1 Organism [...] 4 S Trimeth/Sulfa(CHRISTI) <= 20 S Normal [facility] Comment on above: Order Comment: Speci men Source Comment:Urine, clean catch Performed By: #### H EMDF, PT, BMP3M, PHOS3, MG3, CK3 #### [facility] [address] [place], [place] #### VD25H #### [facility] [address] [place] [address] Creatinine, Ur Randomon 06-30 Creatinine, Ur Random 49.5 mg/dL Normal No [facility] Comment on above: Performed By: #### H EMDF, PT, BMP3M, PHOS3, MG3, CK3 #### [facility] [address] [place], [place] #### VD25H #### [facility] [address] [place] [address] Glucose,Bedsideon 07-24-2018 Glucose mass conc 124 mg/dL High 70-100 [facility] Comment on above: Result Comment: Test performed by glucose meter. Results may be 10%-15% lower than serum/plasma values. (CLIA ID [id number]) Performed By: #### H EMDF, PT, BMP3M, PHOS3, MG3, CK3 #### [facility] [address] [place], [place] #### VD25H #### [facility] [address] [place] [address] Glucose mass conc 152 mg/dL High 70-100 [facility] [employer] [facility] Comment on above: Result Comment: Test performed by glucose meter. Results may be 10%-15% lower than serum/plasma values. (CLIA ID [id number]) Performed By: #### H EMDF, PT, BMP3M, PHOS3, MG3, CK3 #### [address] [place], [place] #### VD25H #### [facility] [address] [place] [address] Glucose mass conc 149 mg/dL High 70-100 [facility] Comment on above: Result Comment: Test performed by glucose meter. Results may be 10%-15% lower than serum/plasma values. (CLIA ID [id number]) Performed By: #### H EMDF, PT, BMP3M, PHOS3, MG3, CK3 #### [address] #### VD25H #### [facility] [address] [place] [address] Hemogram w/ Autodiffon 07-24 Erythrocyte distribution width Ratio (RBC) 13.7 % Normal 11.5-14.5 [facility] Comment on above: Performed By: #### H EMDF, PT, BMP3M, PHOS3, MG3, CK3 #### [address] #### VD25H #### [facility] [address] [place] [address] Hematocrit Volume Fraction (Bld) 31.4 % Low 40.0-52.0 [facility] Comment on above: Performed By: #### H EMDF, PT, BMP3M, PHOS3, MG3, CK3 #### [address] #### VD25H #### [facility] [address] [facility] [place] [address] Hemoglobin mass conc (Bld) 10.7 g/dL Low 13.0-18.0 [facility] Comment on above: Performed By: #### H EMDF, PT, BMP3M, PHOS3, MG3, CK3 #### [address] #### VD25H #### [facility] [address] [place] [address] MCH Entitic mass (RBC) 29.4 pg Normal 26.0-34.0 [facility] Comment on above: Performed By: #### H EMDF, PT, BMP3M, PHOS3, MG3, CK3 #### [address] [place] #### VD25H #### [facility] [address] [place] [address] MCHC mass conc (RBC) 33.9 % Normal 32.0-36.0 [facility] Comment on above: Performed By: #### H EMDF, PT, BMP3M, PHOS3, MG3, CK3 #### [address] #### VD25H #### [facility] [address] [place] [address] MCV Entitic volume (RBC) 86.8 fL Normal 80.0-98.0 [facility] Comment on above: Performed By: #### H EMDF, PT, BMP3M, PHOS3, MG3, CK3 #### [address] #### VD25H #### [facility] [address] [place] [address] Platelet mean volume Entitic volume (Bld) 8.6 fL Normal 7.4-10.4 [facility] Comment on above: Performed By: #### H EMDF, PT, BMP3M, PHOS3, MG3, CK3 #### [address] #### VD25H #### [facility] [address] [place] [address] Platelets #/vol (Bld) 304 10*3/uL Normal 140-440 [facility] Comment on above: Performed By: #### H EMDF, PT, BMP3M, PHOS3, MG3, CK3 #### [address] #### VD25H #### [facility] [address] [place] [address] RBC #/vol (Bld) 3.62 10*6/uL Low 4.40-5.90 [facility] Comment on above: Performed By: #### H EMDF, PT, BMP3M, PHOS3, MG3, CK3 #### [address] #### VD25H #### [facility] [address] [place] [address] WBC #/vol (Bld) 14.0 10*3/uL High 3.6-10.7 [facility] Comment on above: Performed By: #### H EMDF, PT, BMP3M, PHOS3, MG3, CK3 #### [address] #### VD25H #### [facility] [address] [facility] [place] [address] Magnesiumon 07-24-2018 Magnesium mass conc 2.2 mg/dL Normal 1.6-2.3 [facility] Comment on above: Performed By: #### H EMDF, PT, BMP3M, PHOS3, MG3, CK3 #### [address] #### VD25H #### [facility] [address] [place] [address] Manual Diffon 07-24-2018 Abs Baso Cnt 0.0 10*3/uL Normal 0.0-0.2 [facility] Comment on above: Performed By: #### H EMDF, PT, BMP3M, PHOS3, MG3, CK3 #### [address] #### VD25H #### [facility] [address] [facility] [place] [address] Abs Neutrophile Cnt 12.2 10*3/uL High 2.2-8.2 [facility] Comment on above: Performed By: #### H EMDF, PT, BMP3M, PHOS3, MG3, CK3 #### [address] #### VD25H #### [facility] [address] [place] [address] Eosinophils #/vol (Bld) 0.4 10*3/uL Normal 0.0-0.5 [facility] Comment on above: Performed By: #### H EMDF, PT, BMP3M, PHOS3, MG3, CK3 #### [facility] [address] [place] #### VD25H #### [facility] [address] [place] [address] Eosinophils/100 WBC (Bld) 3 % Normal 1-6 [facility] Comment on above: Performed By: #### H EMDF, PT, BMP3M, PHOS3, MG3, CK3 #### [address] [place] #### VD25H #### [facility] [address] [place] [address] Lymphocytes #/vol (Bld) 1.0 10*3/uL Low 1.1-4.5 [facility] Comment on above: Performed By: #### H EMDF, PT, BMP3M, PHOS3, MG3, CK3 #### [address] [place] #### VD25H #### [facility] [address] [place] [address] Lymphocytes/100 WBC (Bld) 7 % Low 20-40 [facility] Comment on above: Performed By: #### H EMDF, PT, BMP3M, PHOS3, MG3, CK3 #### [address] [place] #### VD25H #### [facility] [address] [place] [address] Monocytes #/vol (Bld) 0.4 10*3/uL Normal 0.2-1.1 [facility] Comment on above: Performed By: #### H EMDF, PT, BMP3M, PHOS3, MG3, CK3 #### [facility] [address] [facility], [place] #### VD25H #### [facility] [address] [place] [address] Monocytes/100 WBC (Bld) 3 % Normal 2-10 [facility] Comment on above: Performed By: #### H EMDF, PT, BMP3M, PHOS3, MG3, CK3 #### [facility] [address], [place] #### VD25H #### [facility] [address] [place] [address] RBC morphology finding Nom (Bld) Normal Normal [facility] Comment on above: Performed By: #### H EMDF, PT, BMP3M, PHOS3, MG3, CK3 #### [place] [address] [address] [facility], [place] #### VD25H #### [facility] [address] [place] [address] Seg Neutrophils 87 % High 40-80 [facility] Comment on above: Performed By: #### H EMDF, PT, BMP3M, PHOS3, MG3, CK3 #### [facility] [address], [place] #### VD25H #### [facility] [address] [place] [address] Bands 0 % Normal 0-3 [facility] Comment on above: Performed By: #### H EMDF, PT, BMP3M, PHOS3, MG3, CK3 #### [place] [address] [address] [facility], [place] #### VD25H #### [facility] [address] [place] [address] Basophils/100 WBC (Bld) 0 % Normal 0-2 [facility] Comment on above: Performed By: #### H EMDF, PT, BMP3M, PHOS3, MG3, CK3 #### [facility] [address], [place] #### VD25H #### [facility] [address] [place] [address] Cells counted 100 Normal [facility] Comment on above: Performed By: #### H EMDF, PT, BMP3M, PHOS3, MG3, CK3 #### [address] [place], [place] #### VD25H #### [facility] [address] [place] [address] Phosphoruson 07-24-2018 Phosphate mass conc 2.7 mg/dL Normal 2.5-4.5 [facility] Comment on above: Performed By: #### H EMDF, PT, BMP3M, PHOS3, MG3, CK3 #### [address] #### VD25H #### [place] [address] [place] [address] Triglycerideon 07-24-2018 Triglyceride mass conc 78 mg/dL Normal <150 [facility] Comment on above: Performed By: #### H EMDF, PT, BMP3M, PHOS3, MG3, CK3 #### [address] #### VD25H #### [facility] [address] [place] [address] Urea Nitrogen,Ur Randomon Urea nitrogen mass conc 1199 mg/dL Normal No Range [facility] Comment on above: Performed By: #### H EMDF, PT, BMP3M, PHOS3, MG3, CK3 #### [address] #### VD25H #### [facility] [address] [place] [address] Add on test from HISon 07-23 Add on test from HIS Accepted Normal [facility] Comment on above: Result Comment: Spec imen available & acceptable for analysis. Performed By: #### H EMDF, PT, BMP3M, PHOS3, MG3, CK3 #### [address] #### VD25H #### [place] [address] [place] [address] Arterial Blood Gaseson 07-23 CO2 molar conc 23.0 mmol/L Normal 23.0-27.0 [facility] Comment on above: Performed By: #### H EMDF, PT, BMP3M, PHOS3, MG3, CK3 #### [address] #### VD25H #### [place] [address] [place] [address] HCO3 molar conc (Bld) 22.0 mmol/L Normal 21.0-25.0 [facility] Comment on above: Performed By: #### H EMDF, PT, BMP3M, PHOS3, MG3, CK3 #### [address] #### VD25H #### [place] [address] [place] [address] Hemoglobin mass conc (Bld) 10.9 g/dL Normal [facility] Comment on above: Performed By: #### H EMDF, PT, BMP3M, PHOS3, MG3, CK3 #### [address] #### VD25H #### [place] [address] [place] [address] Oxygen ppres (Bld) 102.4 mm[Hg] High 80.0-100.0 [facility] Comment on above: Performed By: #### H EMDF, PT, BMP3M, PHOS3, MG3, CK3 #### [address] #### VD25H #### [place] [address] [place] [address] Oxygen saturation in Blood 97.7 % Normal 95.0-100.0 [facility] Comment on above: Performed By: #### H EMDF, PT, BMP3M, PHOS3, MG3, CK3 #### [address] [place], [place] #### VD25H #### [facility] [address] [place] [address] pCO2 34.4 mm[Hg] Low 35.0-45.0 [facility] Comment on above: Performed By: #### H EMDF, PT, BMP3M, PHOS3, MG3, CK3 #### [place] [address] [place] #### VD25H #### [facility] [address] [place] [address] pH (Bld) 7.423 Normal 7.350-7.450 [facility] Comment on above: Performed By: #### H EMDF, PT, BMP3M, PHOS3, MG3, CK3 #### [place] [address] [place] #### VD25H #### [facility] [address] [place] [address] Std Base Excess -1.9 mmol/L Normal -3.0-3.0 [facility] Comment on above: Performed By: #### H EMDF, PT, BMP3M, PHOS3, MG3, CK3 #### [place] [address] [place] #### VD25H #### [facility] [address] [place] [address] FIO2 .30 Normal [facility] Comment on above: Performed By: #### H EMDF, PT, BMP3M, PHOS3, MG3, CK3 #### [place] [address] [place] #### VD25H #### [facility] [address] [place] [address] Basic Metabolic Panelon -2 Anion gap molar conc 12 Normal [facility] Comment on above: Performed By: #### H EMDF, PT, BMP3M, PHOS3, MG3, CK3 #### [place] [address] [place] #### VD25H #### [facility] [address] [place] [address] Calcium mass conc 7.5 mg/dL Low 8.4-10.4 [facility] Comment on above: Performed By: #### H EMDF, PT, BMP3M, PHOS3, MG3, CK3 #### [place] [address] [place] #### VD25H #### [facility] [address] [place] [address] CO2 molar conc 23 mmol/L Normal 22-30 [facility] Comment on above: Performed By: #### H EMDF, PT, BMP3M, PHOS3, MG3, CK3 #### [address] [place] #### VD25H #### [facility] [address] [place] [address] Glucose mass conc 148 mg/dL High 70-100 [facility] Comment on above: Performed By: #### H EMDF, PT, BMP3M, PHOS3, MG3, CK3 #### [place] [address] [place] #### VD25H #### [facility] [address] [place] [address] Urea nitrogen mass conc 82 mg/dL High 7-20 [facility] Comment on above: Performed By: #### H EMDF, PT, BMP3M, PHOS3, MG3, CK3 #### [place] [address] [place] #### VD25H #### [facility] [address] [place] [address] Creatinine mass conc 3.01 mg/dL High 0.52-1.25 [facility] Comment on above: Performed By: #### H EMDF, PT, BMP3M, PHOS3, MG3, CK3 #### [place] [address] [place] #### VD25H #### [facility] [address] [place] [address] GFR/1.73 sq M predicted among blacks MDRD vol rate/area (S/P/Bld) 25.8 mL/min/{1.73_m2} Normal >60 [facility] Comment on above: Performed By: #### H EMDF, PT, BMP3M, PHOS3, MG3, CK3 #### [address] #### VD25H #### [facility] [address] [place] [address] GFR/1.73 sq M predicted among non-blacks MDRD vol rate/area (S/P/Bld) 21.3 mL/min/{1.73_m2} Normal >60 [facility] Comment on above: Result Comment: Sour ce- MDRD equation with creatinine calibration to IDMS(NKDEP) eGFR not recommended for drug dose adjustment Performed By: #### H EMDF, PT, BMP3M, PHOS3, MG3, CK3 #### [address] #### VD25H #### [facility] [address] [place] [address] Chloride molar conc 106 mmol/L Normal 98-107 [facility] Comment on above: Performed By: #### H EMDF, PT, BMP3M, PHOS3, MG3, CK3 #### [address] #### VD25H #### [facility] [address] [place] [address] Potassium molar conc 4.2 mmol/L Normal 3.5-5.1 [facility] Comment on above: Performed By: #### H EMDF, PT, BMP3M, PHOS3, MG3, CK3 #### [address] #### VD25H #### [facility] [address] [place] [address] Sodium molar conc 141 mmol/L Normal 135-145 [facility] Comment on above: Performed By: #### H EMDF, PT, BMP3M, PHOS3, MG3, CK3 #### [facility] [address] [place], [place] #### VD25H #### [facility] [address] [facility] [place] [address] CR Chest Portableon 07-24-19 19 CR Chest Portable Patient Name: KATHYA HOOPER Diagnostic Radiology Exam Date/Time 07/23/2018 07:06:03 EDT Exam CR Chest Portable Ordering Physician MARIA EUGENIA PEREZ Accession Number [id number] CPT4 Codes 54167 () Reason For Exam ETT placement Report [...] Transcribed Date and Time: 07/23/2018 7:58 Normal [facility] Creatinine, Ur Randomon 06-30 Creatinine, Ur Random 56.8 mg/dL Normal No Range [facility] Comment on above: Performed By: #### H EMDF, PT, BMP3M, PHOS3, MG3, CK3 #### [facility] [address] [place], [place] #### VD25H #### [facility] [address] [place] [address] Glucose,Bedsideon 07-23-2018 Glucose mass conc 116 mg/dL High 70-100 [facility] Comment on above: Result Comment: Test performed by glucose meter. Results may be 10%-15% lower than serum/plasma values. (CLIA ID [id number]) Performed By: #### H EMDF, PT, BMP3M, PHOS3, MG3, CK3 #### [facility] [address] [place], [place] #### VD25H #### [facility] [address] [place] [address] Glucose mass conc 139 mg/dL High 70-100 [facility] Comment on above: Result Comment: Test performed by glucose meter. Results may be 10%-15% lower than serum/plasma values. (CLIA ID [id number]) Performed By: #### H EMDF, PT, BMP3M, PHOS3, MG3, CK3 #### [facility] [address] [place] [address] #### VD25H #### [facility] [address] [place] [address] Glucose mass conc 140 mg/dL High 70-100 [facility] Comment on above: Result Comment: Test performed by glucose meter. Results may be 10%-15% lower than serum/plasma values. (CLIA ID [id number]) Performed By: #### H EMDF, PT, BMP3M, PHOS3, MG3, CK3 #### [facility] [address] [place] [address] #### VD25H #### [facility] [address] [place] [address] Glucose mass conc 140 mg/dL High 70-[address] [facility] Comment on above: Result Comment: Test performed by glucose meter. Results may be 10%-15% lower than serum/plasma values. (CLIA ID [id number]) Performed By: #### H EMDF, PT, BMP3M, PHOS3, MG3, CK3 #### [facility] [address] [place] [address] #### VD25H #### [facility] [address] [place] [address] Hemogram w/ Autodiffon 07-23 Abs Baso Cnt 0.0 10*3/uL Normal 0.0-0.2 [facility] Comment on above: Performed By: #### H EMDF, PT, BMP3M, PHOS3, MG3, CK3 #### [address] #### VD25H #### [facility] [address] [place] [address] Abs Neutrophile Cnt 16.2 10*3/uL High 1.8-7.0 [facility] Comment on above: Performed By: #### H EMDF, PT, BMP3M, PHOS3, MG3, CK3 #### [address] #### VD25H #### [place] [address] [place] [address] Basophils/100 WBC (Bld) 0.3 % Normal 0.0-2.0 [facility] Comment on above: Performed By: #### H EMDF, PT, BMP3M, PHOS3, MG3, CK3 #### [address] #### VD25H #### [place] [address] [place] [address] Eosinophils #/vol (Bld) 0.2 10*3/uL Normal 0.0-0.5 [facility] Comment on above: Performed By: #### H EMDF, PT, BMP3M, PHOS3, MG3, CK3 #### [address] #### VD25H #### [place] [address] [place] [address] Eosinophils/100 WBC (Bld) 1.2 % Normal 1.0-6.0 [facility] Comment on above: Performed By: #### H EMDF, PT, BMP3M, PHOS3, MG3, CK3 #### [address], [place] #### VD25H #### [facility] [address] [place] [address] Erythrocyte distribution width Ratio (RBC) 13.9 % Normal 11.5-14.5 [facility] Comment on above: Performed By: #### H EMDF, PT, BMP3M, PHOS3, MG3, CK3 #### [address] [place] #### VD25H #### [facility] [address] [place] [address] Granulocytes/100 WBC (Bld) 86.8 % High 40.0-80.0 [facility] Comment on above: Performed By: #### H EMDF, PT, BMP3M, PHOS3, MG3, CK3 #### [address] #### VD25H #### [facility] [address] [place] [address] Hematocrit Volume Fraction (Bld) 26.7 % Low 40.0-52.0 [facility] Comment on above: Performed By: #### H EMDF, PT, BMP3M, PHOS3, MG3, CK3 #### [address] #### VD25H #### [facility] [address] [place] [address] Hemoglobin mass conc (Bld) 8.9 g/dL Low 13.0-18.0 [facility] Comment on above: Performed By: #### H EMDF, PT, BMP3M, PHOS3, MG3, CK3 #### [address] #### VD25H #### [facility] [address] [place] [address] Lymphocytes #/vol (Bld) 1.2 10*3/uL Normal 1.0-4.3 [facility] Comment on above: Performed By: #### H EMDF, PT, BMP3M, PHOS3, MG3, CK3 #### [address] [place] #### VD25H #### [facility] [address] [place] [address] Lymphocytes/100 WBC (Bld) 6.6 % Low 20.0-40.0 [facility] Comment on above: Performed By: #### H EMDF, PT, BMP3M, PHOS3, MG3, CK3 #### [address] #### VD25H #### [facility] [address] [facility] [place] [address] MCH Entitic mass (RBC) 29.5 pg Normal 26.0-34.0 [facility] Comment on above: Performed By: #### H EMDF, PT, BMP3M, PHOS3, MG3, CK3 #### [address] #### VD25H #### [facility] [address] [facility] [place] [address] MCHC mass conc (RBC) 33.5 % Normal 32.0-36.0 [facility] Comment on above: Performed By: #### H EMDF, PT, BMP3M, PHOS3, MG3, CK3 #### [address] #### VD25H #### [facility] [address] [place] [address] MCV Entitic volume (RBC) 87.9 fL Normal 80.0-98.0 [facility] Comment on above: Performed By: #### H EMDF, PT, BMP3M, PHOS3, MG3, CK3 #### [address] #### VD25H #### [facility] [address] [facility] [place] [address] Monocytes #/vol (Bld) 1.0 10*3/uL High 0.0-0.8 [facility] Comment on above: Performed By: #### H EMDF, PT, BMP3M, PHOS3, MG3, CK3 #### [address] [place] #### VD25H #### [facility] [address] [place] [address] Monocytes/100 WBC (Bld) 5.1 % Normal 2.0-10.0 [facility] Comment on above: Performed By: #### H EMDF, PT, BMP3M, PHOS3, MG3, CK3 #### [address] [place] #### VD25H #### [facility] [address] [place] [address] Platelet mean volume Entitic volume (Bld) 8.2 fL Normal 7.4-10.4 [facility] Comment on above: Performed By: #### H EMDF, PT, BMP3M, PHOS3, MG3, CK3 #### [address] [place] #### VD25H #### [facility] [address] [place] [address] Platelets #/vol (Bld) 294 10*3/uL Normal 140-440 [facility] Comment on above: Performed By: #### H EMDF, PT, BMP3M, PHOS3, MG3, CK3 #### [address] #### VD25H #### [facility] [address] [place] [address] RBC #/vol (Bld) 3.03 10*6/uL Low 4.40-5.90 [facility] Comment on above: Performed By: #### H EMDF, PT, BMP3M, PHOS3, MG3, CK3 #### [address] #### VD25H #### [facility] [address] [place] [address] WBC #/vol (Bld) 18.7 10*3/uL High 3.6-10.7 [facility] Comment on above: Performed By: #### H EMDF, PT, BMP3M, PHOS3, MG3, CK3 #### [place] [address] [place] #### VD25H #### [facility] [address] [place] [address] LDHon 07-23-2018 LDH 342 U/L High 65-175 [facility] Comment on above: Performed By: #### H EMDF, PT, BMP3M, PHOS3, MG3, CK3 #### [place] [address] [place] #### VD25H #### [facility] [address] [place] [address] Magnesiumon 07-23-2018 Magnesium mass conc 2.5 mg/dL High 1.6-2.3 [facility] Comment on above: Performed By: #### H EMDF, PT, BMP3M, PHOS3, MG3, CK3 #### [place] [address] [place] #### VD25H #### [facility] [address] [place] [address] Phosphoruson 07-23-2018 Phosphate mass conc 4.5 mg/dL Normal 2.5-4.5 [facility] Comment on above: Performed By: #### H EMDF, PT, BMP3M, PHOS3, MG3, CK3 #### [place] [address] [place] #### VD25H #### [facility] [address] [place] [address] Protein, Total Body Fluidon 07-23-2018 Protein,Total-Body Fld 2.7 g/dL Normal No Range [facility] Comment on above: Performed By: #### H EMDF, PT, BMP3M, PHOS3, MG3, CK3 #### [address] #### VD25H #### [facility] [address] [place] [address] Triglycerideon 07-23-2018 Triglyceride mass conc 63 mg/dL Normal <150 [facility] Comment on above: Performed By: #### H EMDF, PT, BMP3M, PHOS3, MG3, CK3 #### [facility] [address] [place] #### VD25H #### [facility] [address] [place] [address] Urea Nitrogen,Ur Randomon Urea nitrogen mass conc 677 mg/dL Normal No Range [facility] Comment on above: Performed By: #### H EMDF, PT, BMP3M, PHOS3, MG3, CK3 #### [place] [address] [place] #### VD25H #### [place] [address] [place] [address] Urinalysis,Macroon 9 Appearance Nom (U) cloudy Normal Clear [facility] Comment on above: Performed By: #### H EMDF, PT, BMP3M, PHOS3, MG3, CK3 #### [address] #### VD25H #### [facility] [address] [place] [address] Bilirubin,Ur Negative Normal Negative [facility] Comment on above: Performed By: #### H EMDF, PT, BMP3M, PHOS3, MG3, CK3 #### [place] [address] [place] #### VD25H #### [facility] [address] [place] [address] Color Nom (U) dk.yel Normal Lt. Yellow [facility] Comment on above: Performed By: #### H EMDF, PT, BMP3M, PHOS3, MG3, CK3 #### [address] #### VD25H #### [facility] [address] [place] [address] Glucose Ql (U) NORM Normal Negative [facility] Comment on above: Performed By: #### H EMDF, PT, BMP3M, PHOS3, MG3, CK3 #### [place] [address] [place] #### VD25H #### [facility] [address] [place] [address] Ketone,Urine Negative Normal Negative [facility] Comment on above: Performed By: #### H EMDF, PT, BMP3M, PHOS3, MG3, CK3 #### [address] #### VD25H #### [facility] [address] [place] [address] Nitrite Ql (U) Negative Normal Negative [facility] Comment on above: Performed By: #### H EMDF, PT, BMP3M, PHOS3, MG3, CK3 #### [address] #### VD25H #### [facility] [address] [place] [address] Occult Blood,Ur 250 {RBC}/uL Normal Negative [facility] Comment on above: Performed By: #### H EMDF, PT, BMP3M, PHOS3, MG3, CK3 #### [address] #### VD25H #### [facility] [address] [place] [address] pH (U) 5.0 Normal 5.0-8.0 [facility] Comment on above: Performed By: #### H EMDF, PT, BMP3M, PHOS3, MG3, CK3 #### [address] #### VD25H #### [facility] [address] [place] [address] Protein mass conc (U) 75 mg/dL Normal Negative [facility] Comment on above: Performed By: #### H EMDF, PT, BMP3M, PHOS3, MG3, CK3 #### [place] [address] [place] #### VD25H #### [facility] [address] [place] [address] Specific [place],Urine 1.015 Normal 1.005-1.030 [facility] Comment on above: Performed By: #### H EMDF, PT, BMP3M, PHOS3, MG3, CK3 #### [place] [address] [place] #### VD25H #### [facility] [address] [place] [address] Urobilinogen Qn (U) NORM Normal 0-1 [facility] Comment on above: Performed By: #### H EMDF, PT, BMP3M, PHOS3, MG3, CK3 #### [address] #### VD25H #### [facility] [address] [place] [address] WBC #/vol (Bld) 2 + Normal Negative [facility] Comment on above: Performed By: #### H EMDF, PT, BMP3M, PHOS3, MG3, CK3 #### [address] #### VD25H #### [facility] [address] [place] [address] Urinalysis,Microscopicon Bacteria LM.HPF #/area (Urine sed) Moderate (6-50) Normal Negative [facility] Comment on above: Performed By: #### H EMDF, PT, BMP3M, PHOS3, MG3, CK3 #### [address] #### VD25H #### [facility] [address] [place] [address] Epithelial cells LM.HPF #/area (Urine sed) 0 - 2 Normal 3-5 [facility] Comment on above: Performed By: #### H EMDF, PT, BMP3M, PHOS3, MG3, CK3 #### [facility] [address] [place] #### VD25H #### [facility] [address] [place] [address] RBC LM.HPF #/area (Urine sed) /[HPF] Normal 0-2 [facility] Comment on above: Performed By: #### H EMDF, PT, BMP3M, PHOS3, MG3, CK3 #### [facility] [address] [place] #### VD25H #### [facility] [address] [place] [address] Volume,Urine 8-12 ml Normal [facility] Comment on above: Performed By: #### H EMDF, PT, BMP3M, PHOS3, MG3, CK3 #### [place] [address] [place] #### VD25H #### [facility] [address] [place] [address] WBC LM.HPF #/area (Urine sed) 26 - 50 Normal 0-5 [facility] Comment on above: Performed By: #### H EMDF, PT, BMP3M, PHOS3, MG3, CK3 #### [place] [address] [place] #### VD25H #### [facility] [address] [place] [address] VL Venous Duplex US Lower Ex t Bilateralon 07-23-2018 VL Venous Duplex US Lower Ext Bilateral Patient Name: KATHYA HOOPER Ultrasound Exam Date/Time 07/23/2018 11:16:11 EDT Exam VL Venous Duplex US Lower Ext Bilateral Ordering Physician ETIENNE MARTÍNEZ JULIE Accession Number [id number] CPT4 Codes 14393 () Reason For Exam edema Report [facility] --- Lower Extremity Venous Duplex Report Patient Name: Kathya Hooper : 1955 Study Date: 07/23/2018 W (63yrs) Age: 63 Account: [id number] Gender: M Loc: T209 BP: Ordering: Yesenia Martínez Technologist: Ordering Physician: Yesenia Martínez Cisco Engineer: León Chaidez Lissette, [facility] Interpreting Physician: Vamsi York MD --- Location: [facility] --- INDICATIONS: Edema. bilateral calf [...] performed. The images were obtained using a [employer] E9 vascular ultrasound machine. --- VENOUS FLOW [...] --+ Electronically signed by: Vamsi York MD [id number] Final Dictated: 07/23/2018 3:00 pm Dictating Physician: VAMSI YORK Signed Date and Time: 07/23/2018 3:00 pm Signed by: VAMSI YORK Normal [facility] Vancomycin Troughon 07-24-19 Vancomycin Trough 10.8 ug/mL Low 15.0-20.[address] [facility] Comment on above: Result Comment: . Performed By: #### H EMDF, PT, BMP3M, PHOS3, MG3, CK3 #### [facility] [address] [place] [address] #### VD25H #### [facility] [address] [place] [address] Basic Metabolic Panelon 06-30 Calcium mass conc 7.9 mg/dL Low 8.4-10.4 [facility] Comment on above: Performed By: #### H EMDF, PT, BMP3M, PHOS3, MG3, CK3 #### [facility] [address] [place] [address] #### VD25H #### [facility] [address] [place] [address] Anion gap molar conc 11 Normal [facility] Comment on above: Performed By: #### H EMDF, PT, BMP3M, PHOS3, MG3, CK3 #### [facility] [address] [place] [address] #### VD25H #### [facility] [address] [place] [address] CO2 molar conc 28 mmol/L Normal 22-30 [facility] Comment on above: Performed By: #### H EMDF, PT, BMP3M, PHOS3, MG3, CK3 #### [place] [address] [place] #### VD25H #### [facility] [address] [place] [address] Glucose mass conc 134 mg/dL High 70-100 [facility] Comment on above: Performed By: #### H EMDF, PT, BMP3M, PHOS3, MG3, CK3 #### [place] [address] [place] #### VD25H #### [facility] [address] [place] [address] Urea nitrogen mass conc 51 mg/dL High 7-20 [facility] Comment on above: Performed By: #### H EMDF, PT, BMP3M, PHOS3, MG3, CK3 #### [place] [address] [place] #### VD25H #### [facility] [address] [place] [address] Creatinine mass conc 1.57 mg/dL High 0.52-1.25 [facility] Comment on above: Performed By: #### H EMDF, PT, BMP3M, PHOS3, MG3, CK3 #### [facility] [address] [place] #### VD25H #### [facility] [address] [place] [address] GFR/1.73 sq M predicted among blacks MDRD vol rate/area (S/P/Bld) 54.6 mL/min/{1.73_m2} Normal >60 [facility] Comment on above: Performed By: #### H EMDF, PT, BMP3M, PHOS3, MG3, CK3 #### [facility] [address] [place] #### VD25H #### [facility] [address] [place] [address] GFR/1.73 sq M predicted among non-blacks MDRD vol rate/area (S/P/Bld) 45.1 mL/min/{1.73_m2} Normal >60 [facility] Comment on above: Result Comment: Sour ce- MDRD equation with creatinine calibration to IDMS(NKDEP) eGFR not recommended for drug dose adjustment Performed By: #### H EMDF, PT, BMP3M, PHOS3, MG3, CK3 #### [address] #### VD25H #### [facility] [address] [place] [address] Chloride molar conc 107 mmol/L Normal 98-107 [facility] Comment on above: Performed By: #### H EMDF, PT, BMP3M, PHOS3, MG3, CK3 #### [address] #### VD25H #### [facility] [address] [place] [address] Potassium molar conc 3.8 mmol/L Normal 3.5-5.1 [facility] Comment on above: Performed By: #### H EMDF, PT, BMP3M, PHOS3, MG3, CK3 #### [address] #### VD25H #### [facility] [address] [place] [address] Sodium molar conc 146 mmol/L High 135-145 [facility] Comment on above: Performed By: #### H EMDF, PT, BMP3M, PHOS3, MG3, CK3 #### [facility] [address] [facility] [place] [address] #### VD25H #### [facility] [address] [place] [address] CR Abdomen APon 07-22-2018 CR Abdomen AP Patient Name: KATHYA HOOPER Diagnostic Radiology Exam Date/Time 07/22/2018 08:02:02 EDT Exam CR Abdomen AP Ordering Physician MARIA EUGENIA PEREZ Accession Number [id number] CPT4 Codes 90359 () Reason For Exam ileus Report Supine [...] Transcribed Date and Time: 07/22/2018 9:28 Normal [facility] CR Chest Portableon 07-23-19 19 CR Chest Portable Patient Name: KATHYA HOOPER Diagnostic Radiology Exam Date/Time 07/22/2018 16:32:15 EDT Exam CR Chest Portable Ordering Physician [facility] Accession Number [id number] CPT4 Codes 93766 () Reason For Exam Thoracentesis Report Clinical [...] RUSSELL Transcribed Date and Time: 07/22/2018 6:46 [facility] CR Chest Portable Patient Name: KATHYA HOOPER Diagnostic Radiology Exam Date/Time 07/22/2018 06:49:22 EDT Exam CR Chest Portable Ordering Physician MARIA EUGENIA PEREZ Accession Number [id number] CPT4 Codes 41874 () Reason For Exam ETT placement Report [...] M Transcribed Date and Time: 07/22/2018 9:31 [facility] CULTURE AND STAIN - FLUIDon 07-22-2018 CULTURE AND STAIN - FLUID CULTURE & STAIN - FLUID --> Status: F No growth at 5 days. STAIN GRAM --> Status: F Moderate polymorphonuclear cells/lpf. Moderate mononuclear cells/lpf No organisms seen. Cytocentrifugation performed. Moderate mononuclear cells/lpf No organisms seen. Cytocentrifugation performed. Normal [facility] Comment on above: Order Comment: Speci men Source Comment:Body Fluid Performed By: #### H EMDF, PT, BMP3M, PHOS3, MG3, CK3 #### [facility] [address] [place], [place] #### VD25H #### [facility] [address] [place] [address] Cell Count,Body Fluidon 06-30 Nucleated Cells 259 {cells}/uL Normal [facility] Comment on above: Performed By: #### H EMDF, PT, BMP3M, PHOS3, MG3, CK3 #### [place] [address] [place], [place] #### VD25H #### [facility] [address] [place] [address] RBC Count Body Fld 123 {RBC}/uL Normal [facility] Comment on above: Performed By: #### H EMDF, PT, BMP3M, PHOS3, MG3, CK3 #### [place] [address] [place], [place] #### VD25H #### [facility] [address] [place] [address] Fluid Type thoracentesis Normal [facility] Comment on above: Performed By: #### H EMDF, PT, BMP3M, PHOS3, MG3, CK3 #### [address] #### VD25H #### [facility] [address] [place] [address] Glucose, Body Fluidon 2018 Fluid Type Thoracentesis Normal [facility] Comment on above: Performed By: #### H EMDF, PT, BMP3M, PHOS3, MG3, CK3 #### [facility] [address] [place] [address] #### VD25H #### [facility] [address] [place] [address] Glucose, Body Fluid 136 mg/dL Normal No Range [facility] Comment on above: Performed By: #### H EMDF, PT, BMP3M, PHOS3, MG3, CK3 #### [facility] [address] [place] [address] #### VD25H #### [facility] [address] [place] [address] Glucose,Bedsideon 07-22-2018 Glucose mass conc 142 mg/dL High 70-[address] [facility] Comment on above: Result Comment: Test performed by glucose meter. Results may be 10%-15% lower than serum/plasma values. (CLIA ID [id number]) Performed By: #### H EMDF, PT, BMP3M, PHOS3, MG3, CK3 #### [facility] [address] [place] [address] #### VD25H #### [facility] [address] [place] [address] Glucose mass conc 127 mg/dL High 70-100 [facility] Comment on above: Result Comment: Test performed by glucose meter. Results may be 10%-15% lower than serum/plasma values. (CLIA ID [id number]) Performed By: #### H EMDF, PT, BMP3M, PHOS3, MG3, CK3 #### [facility] [address] [place] [address] #### VD25H #### [facility] [address] [place] [address] Glucose mass conc 139 mg/dL High 70-100 [facility] Comment on above: Result Comment: Test performed by glucose meter. Results may be 10%-15% lower than serum/plasma values. (CLIA ID [id number]) Performed By: #### H EMDF, PT, BMP3M, PHOS3, MG3, CK3 #### [facility] [facility] [address] [place] [address] #### VD25H #### [employer] [facility] [address] [place] [address] Glucose mass conc 124 mg/dL High 70-[address] [facility] Comment on above: Result Comment: Test performed by glucose meter. Results may be 10%-15% lower than serum/plasma values. (CLIA ID [id number]) Performed By: #### H EMDF, PT, BMP3M, PHOS3, MG3, CK3 #### [facility] [address] #### VD25H #### [employer] [facility] [address] [place] [address] Glucose mass conc 128 mg/dL High 70-[address] Comment on above: Result Comment: Test performed by glucose meter. Results may be 10%-15% lower than serum/plasma values. (CLIA ID [id number]) Performed By: #### H EMDF, PT, BMP3M, PHOS3, MG3, CK3 #### [facility] [employer] [address] [place] [address] #### VD25H #### [employer] [facility] [address] [place] [address] Glucose mass conc 113 mg/dL High 70-[address] Comment on above: Result Comment: Test performed by glucose meter. Results may be 10%-15% lower than serum/plasma values. (CLIA ID [id number]) Performed By: #### H EMDF, PT, BMP3M, PHOS3, MG3, CK3 #### [facility] [employer] [address] [place] [address] #### VD25H #### [facility] [employer] [facility] [facility] [address] [place] [address] Hemogram w/ Autodiffon 07-22 Abs Baso Cnt 0.1 10*3/uL Normal 0.0-0.2 [facility] Comment on above: Performed By: #### H EMDF, PT, BMP3M, PHOS3, MG3, CK3 #### [place] [address] [place], [place] #### VD25H #### [facility] [address] [place] [address] Abs Neutrophile Cnt 15.2 10*3/uL High 1.8-7.0 [facility] Comment on above: Performed By: #### H EMDF, PT, BMP3M, PHOS3, MG3, CK3 #### [place] [address] [place] #### VD25H #### [facility] [address] [place] [address] Basophils/100 WBC (Bld) 0.6 % Normal 0.0-2.0 [facility] Comment on above: Performed By: #### H EMDF, PT, BMP3M, PHOS3, MG3, CK3 #### [place] [address] [place] #### VD25H #### [facility] [address] [place] [address] Eosinophils #/vol (Bld) 0.2 10*3/uL Normal 0.0-0.5 [facility] Comment on above: Performed By: #### H EMDF, PT, BMP3M, PHOS3, MG3, CK3 #### [address] #### VD25H #### [facility] [address] [place] [address] Eosinophils/100 WBC (Bld) 0.9 % Low 1.0-6.0 [facility] Comment on above: Performed By: #### H EMDF, PT, BMP3M, PHOS3, MG3, CK3 #### [address] #### VD25H #### [facility] [address] [place] [address] Erythrocyte distribution width Ratio (RBC) 13.9 % Normal 11.5-14.5 [facility] Comment on above: Performed By: #### H EMDF, PT, BMP3M, PHOS3, MG3, CK3 #### [facility] [address] [place], [place] #### VD25H #### [facility] [address] [place] [address] Granulocytes/100 WBC (Bld) 88.8 % High 40.0-80.0 [facility] Comment on above: Performed By: #### H EMDF, PT, BMP3M, PHOS3, MG3, CK3 #### [address] #### VD25H #### [facility] [address] [place] [address] Hematocrit Volume Fraction (Bld) 31.6 % Low 40.0-52.0 [facility] Comment on above: Performed By: #### H EMDF, PT, BMP3M, PHOS3, MG3, CK3 #### [address] #### VD25H #### [facility] [address] [place] [address] Hemoglobin mass conc (Bld) 10.9 g/dL Low 13.0-18.0 [facility] Comment on above: Performed By: #### H EMDF, PT, BMP3M, PHOS3, MG3, CK3 #### [address] #### VD25H #### [facility] [address] [place] [address] Lymphocytes #/vol (Bld) 1.1 10*3/uL Normal 1.0-4.3 [facility] Comment on above: Performed By: #### H EMDF, PT, BMP3M, PHOS3, MG3, CK3 #### [facility] [address] [place], [place] #### VD25H #### [facility] [address] [place] [address] Lymphocytes/100 WBC (Bld) 6.2 % Low 20.0-40.0 [facility] Comment on above: Performed By: #### H EMDF, PT, BMP3M, PHOS3, MG3, CK3 #### [facility] [address] [place] #### VD25H #### [facility] [address] [place] [address] MCH Entitic mass (RBC) 31.1 pg Normal 26.0-34.0 [facility] Comment on above: Performed By: #### H EMDF, PT, BMP3M, PHOS3, MG3, CK3 #### [address] #### VD25H #### [facility] [address] [place] [address] MCHC mass conc (RBC) 34.6 % Normal 32.0-36.0 [facility] Comment on above: Performed By: #### H EMDF, PT, BMP3M, PHOS3, MG3, CK3 #### [address] #### VD25H #### [facility] [address] [place] MCV Entitic volume (RBC) 89.9 fL Normal 80.0-98.0 [facility] Comment on above: Performed By: #### H EMDF, PT, BMP3M, PHOS3, MG3, CK3 #### [place] [address] [place] #### VD25H #### [facility] [address] [place] [address] Monocytes #/vol (Bld) 0.6 10*3/uL Normal 0.0-0.8 [facility] Comment on above: Performed By: #### H EMDF, PT, BMP3M, PHOS3, MG3, CK3 #### [address] #### VD25H #### [facility] [address] [place] [address] Monocytes/100 WBC (Bld) 3.5 % Normal 2.0-10.0 [facility] Comment on above: Performed By: #### H EMDF, PT, BMP3M, PHOS3, MG3, CK3 #### [place] [address] [place] [address] #### VD25H #### [facility] [address] [place] [address] Platelet mean volume Entitic volume (Bld) 7.9 fL Normal 7.4-10.4 [facility] Comment on above: Performed By: #### H EMDF, PT, BMP3M, PHOS3, MG3, CK3 #### [place] [address] [place] #### VD25H #### [facility] [address] [place] [address] Platelets #/vol (Bld) 299 10*3/uL Normal 140-440 [facility] Comment on above: Performed By: #### H EMDF, PT, BMP3M, PHOS3, MG3, CK3 #### [place] [address] [place], [place] #### VD25H #### [facility] [address] [place] [address] RBC #/vol (Bld) 3.52 10*6/uL Low 4.40-5.90 [facility] Comment on above: Performed By: #### H EMDF, PT, BMP3M, PHOS3, MG3, CK3 #### [place] [address] [place] #### VD25H #### [facility] [address] [place] [address] WBC #/vol (Bld) 17.1 10*3/uL High 3.6-10.7 [facility] Comment on above: Performed By: #### H EMDF, PT, BMP3M, PHOS3, MG3, CK3 #### [place] [address] [place] [address] #### VD25H #### [facility] [address] [place] [address] LDH, Body Fluidon 07-22-2018 LDH, Body Fluid 232 U/L Normal No [facility] Comment on above: Performed By: #### H EMDF, PT, BMP3M, PHOS3, MG3, CK3 #### [facility] [address] [place] #### VD25H #### [facility] [address] [place] [address] Magnesiumon 07-22-2018 Magnesium mass conc 2.6 mg/dL High 1.6-2.3 [facility] Comment on above: Performed By: #### H EMDF, PT, BMP3M, PHOS3, MG3, CK3 #### [address] #### VD25H #### [place] [address] [place] [address] Medical Cytology 9 Medical Cytology [address] [facility], [facility]. LABORATORY MEDICINE [address] [place] [address] FINAL MEDICAL CYTOLOGY REPORT NAME: KATHYA HOOPER : 1955 63 Y M BILLING NO.: [id number] LOCATION: [facility] T2 INPAT T209 PROCEDURE 07/22/2018 01 DATE: [...] characteristics determined by the clinical laboratories of [facility]. They have not been [...] at [facility] [address] [place] [address]. DEPARTMENT OF PATHOLOGY AND LABORATORY MEDICINE [place], [place] [address] Normal [facility] Phosphoruson 07-22-2018 Phosphate mass conc 4.6 mg/dL High 2.5-4.5 [facility] Comment on above: Performed By: #### H EMDF, PT, BMP3M, PHOS3, MG3, CK3 #### [facility] [address] [address] #### VD25H #### [facility] [address] [place] [address] Procalcitoninon 07-22-2018 Protein mass conc 0.27 ng/mL Abnormal <0.10 [facility] Comment on above: Result Comment: (Cor rect ref.range is <0.09 ng/mL) Test performed: [facility], [place], [place]. Performed By: #### H EMDF, PT, BMP3M, PHOS3, MG3, CK3 #### [place] [address] [place], [place] #### VD25H #### [facility] [address] [place] [address] Interpretation See Below Normal [facility] Comment on above: Result Comment: PCT <0.50 = Low risk of severe sepsis and/or septic shock. PCT >2.00 = High risk of severe sepsis and/or septic shock. Performed By: #### H EMDF, PT, BMP3M, PHOS3, MG3, CK3 #### [address] #### VD25H #### [address] [place], [place] STAIN ACID-FASTon 07-22-2018 STAIN ACID-FAST STAIN ACID-FAST --> Status: F No acid-fast bacilli seen in smear. - Method: AFB by Kinyoun Stain - Method: AFB by Kinyoun Stain Normal [facility] Comment on above: Performed By: #### H EMDF, PT, BMP3M, PHOS3, MG3, CK3 #### [place] [address] [place], [place] #### VD25H #### [address] [place] [address] Triglycerideon 07-22-2018 Triglyceride mass conc 96 mg/dL Normal <150 [facility] Comment on above: Performed By: #### H EMDF, PT, BMP3M, PHOS3, MG3, CK3 #### [address] #### VD25H #### [facility] [address] [place] [address] US Thora-Aspir Pleura w/ Evelin geon 07-22-2018 US Thora-Aspir Pleura w/ Image Patient Name: KATHYA HOOPER Ultrasound Exam Date/Time 07/22/2018 14:23:28 EDT Exam US Thora-Aspir Pleura w/ Image Ordering Physician MARIA EUGENIA PEREZ Accession Number [id number] CPT4 Codes 00600 () Reason For Exam L thoracentesis Report Reasons for examination: Left pleural effusion. Respiratory insufficiency. Ultrasound was performed of the left hemithorax, localizing the pleural fluid. After obtaining informed consent, sterile preparation, draping, and local anesthetic administration, thoracentesis was performed under direct ultrasonographic guidance with a 5 Slovak Yueh needle/catheter. A total of 300 mL [...] Transcribed Date and Time: 07/22/2018 2:55 Normal [facility] pH,Misc Body Fluidon 019 pH,Misc 7.996 Normal None Available [facility] Comment on above: Performed By: #### H EMDF, PT, BMP3M, PHOS3, MG3, CK3 #### [address] [address] #### VD25H #### [facility] [address] [facility] [place] [address] Arterial Blood Gaseson 07-21 CO2 molar conc 29.8 mmol/L High 23.0-27.0 [facility] Comment on above: Performed By: #### T SGL #### [address] [address] HCO3 molar conc (Bld) 28.7 mmol/L High 21.0-25.0 [facility] Comment on above: Performed By: #### T SGL #### [place] [address] [place] [address] Hemoglobin mass conc (Bld) 11.7 g/dL Normal ScreenOnly [facility] Comment on above: Performed By: #### T SGL #### [place] [address] [place] [address] Oxygen ppres (Bld) 144.9 mm[Hg] High 80.0-100.0 [facility] Comment on above: Performed By: #### T SGL #### [place] [address] [place] [address] Oxygen saturation in Blood 98.4 % Normal 95.0-100.0 [facility] Comment on above: Performed By: #### T SGL #### [address] [place] [address] pCO2 36.8 mm[Hg] Normal 35.0-45.0 [facility] Comment on above: Performed By: #### T SGL #### [place] [place] [address] pH (Bld) 7.510 High 7.350-7.450 [facility] Comment on above: Performed By: #### T SGL #### [address] [place] [address] Std Base Excess 5.5 mmol/L High -3.0-3.0 [facility] Comment on above: Performed By: #### T SGL #### [place] [place] [address] FIO2 .50 Normal [facility] Comment on above: Performed By: #### T SGL #### [address] [address] CR Abdomen APon 07-21-2018 CR Abdomen AP Patient Name: KATHYA HOOPER Diagnostic Radiology Exam Date/Time 07/21/2018 06:41:07 EDT Exam CR Abdomen AP Ordering Physician [id number] AGUILERA Accession Number [id number] CPT4 Codes 73391 () Reason For Exam ileus Report Reason [...] Transcribed Date and Time: 07/21/2018 7:23 Normal [facility] CR Chest Portableon 07-22-19 CR Chest Portable Patient Name: KATHYA HOOPER Diagnostic Radiology Exam Date/Time 07/21/2018 06:40:50 EDT Exam CR Chest Portable Ordering Physician MARIA EUGENIA PEREZ Accession Number [id number] CPT4 Codes 82741 () Reason For Exam ETT placement Report [...] Transcribed Date and Time: 07/21/2018 5:38 Normal [facility] CR Chest Portable Patient Name: KATHYA HOOPER Diagnostic Radiology Exam Date/Time 07/21/2018 01:11:50 EDT Exam CR Chest Portable Ordering Physician MD GRIFFIN NICHOLAS Accession Number [id number] CPT4 Codes 90477 () Reason For Exam s/p bronch Report [...] Transcribed Date and Time: 07/21/2018 1:26 Normal [facility] Comp Metabolic Panelon 07-21 Calcium mass conc 7.9 mg/dL Low 8.4-10.4 [facility] Comment on above: Performed By: #### T SGL #### [facility] [address] [place] [address] ALP enzyme act/vol 85 U/L Normal 38-126 [facility] Comment on above: Performed By: #### T SGL #### [facility] [address] [place] [address] ALT enzyme act/vol 105 U/L High 13-69 [facility] Comment on above: Performed By: #### T SGL #### [facility] [address] [place] [address] Anion gap molar conc 8 Normal [facility] Comment on above: Performed By: #### T SGL #### [facility] [address] [place] [address] AST enzyme act/vol 78 U/L High 15-46 [facility] Comment on above: Performed By: #### T SGL #### [facility] [address] [place] [address] Bilirubin mass conc 1.1 mg/dL Normal 0.2-1.3 [facility] Comment on above: Performed By: #### T SGL #### [facility] [address] [place] [address] CO2 molar conc 33 mmol/L High 22-30 [facility] Comment on above: Performed By: #### T SGL #### [address] [place] [address] Creatinine mass conc 0.90 mg/dL Normal 0.52-1.25 [facility] Comment on above: Performed By: #### T SGL #### [facility] [address] [place] [address] GFR/1.73 sq M predicted among blacks MDRD vol rate/area (S/P/Bld) mL/min/{1.73_m2} Normal >60 [facility] Comment on above: Performed By: #### T SGL #### [address] [place] [address] GFR/1.73 sq M predicted among non-blacks MDRD vol rate/area (S/P/Bld) mL/min/{1.73_m2} Normal >60 [facility] Comment on above: Result Comment: Sour ce- MDRD equation with creatinine calibration to IDMS(NKDEP) eGFR not recommended for drug dose adjustment Performed By: #### T SGL #### [facility] [address] [place] [address] Glucose mass conc 113 mg/dL High 70-100 [facility] Comment on above: Performed By: #### T SGL #### [address] [place] [address] Protein mass conc 5.6 g/dL Low 6.3-8.[address] [facility] Comment on above: Performed By: #### T SGL #### [facility] [address] [place] [address] Urea nitrogen mass conc 28 mg/dL High 7-20 [facility] Comment on above: Performed By: #### T SGL #### [facility] [address] [place] [address] Chloride molar conc 104 mmol/L Normal 98-107 [facility] Comment on above: Performed By: #### T SGL #### [facility] [address] [place] [address] Potassium molar conc 3.6 mmol/L Normal 3.5-5.1 [facility] Comment on above: Performed By: #### T SGL #### [facility] [address] [place] [address] Sodium molar conc 145 mmol/L Normal 135-145 [facility] Comment on above: Performed By: #### T SGL #### [facility] [employer] [address] [place] [address] Albumin mass conc 2.8 g/dL Low 3.5-5.0 [facility] Comment on above: Performed By: #### T SGL #### [facility] [address] [place] [address] Glucose,Bedsideon 07-21-2018 Glucose mass conc 124 mg/dL High 70-[address] [facility] Comment on above: Result Comment: Test performed by glucose meter. Results may be 10%-15% lower than serum/plasma values. (CLIA ID [id number]) Performed By: #### H EMDF, PT, BMP3M, PHOS3, MG3, CK3 #### [facility] [employer] [address] [place] [address] #### VD25H #### [facility] [facility] [facility] [address] [place] [address] Glucose mass conc 151 mg/dL High 70-[address] [facility] Comment on above: Result Comment: Test performed by glucose meter. Results may be 10%-15% lower than serum/plasma values. (CLIA ID [id number]) Performed By: #### H EMDF, PT, BMP3M, PHOS3, MG3, CK3 #### [facility] [address] [place] [address] #### VD25H #### [facility] [address] [place] [address] Glucose mass conc 127 mg/dL High 70-[address] [facility] Comment on above: Result Comment: Test performed by glucose meter. Results may be 10%-15% lower than serum/plasma values. (CLIA ID [id number]) Performed By: #### T SGL #### [facility] [address] [place] [address] Glucose mass conc 113 mg/dL High 70-[address] [facility] Comment on above: Result Comment: Test performed by glucose meter. Results may be 10%-15% lower than serum/plasma values. (CLIA ID [id number]) Performed By: #### A DDON #### [facility] [address] [place] [address] Hemogram w/ Autodiffon 07-21 Abs Baso Cnt 0.1 10*3/uL Normal 0.0-0.2 [facility] Comment on above: Performed By: #### T SGL #### [address] [place] [address] Abs Neutrophile Cnt 11.0 10*3/uL High 1.8-7.0 [facility] Comment on above: Performed By: #### T SGL #### [facility] [address] [place] [address] Basophils/100 WBC (Bld) 0.5 % Normal 0.0-2.0 [facility] Comment on above: Performed By: #### T SGL #### [facility] [address] [place] [address] Eosinophils #/vol (Bld) 0.3 10*3/uL Normal 0.0-0.5 [facility] Comment on above: Performed By: #### T SGL #### [place] [address] [place] [address] Eosinophils/100 WBC (Bld) 1.9 % Normal 1.0-6.0 [facility] Comment on above: Performed By: #### T SGL #### [place] [address] [place] [address] Erythrocyte distribution width Ratio (RBC) 13.7 % Normal 11.5-14.5 [facility] Comment on above: Performed By: #### T SGL #### [address] [place] [address] Granulocytes/100 WBC (Bld) 81.0 % High 40.0-80.0 [facility] Comment on above: Performed By: #### T SGL #### [address] [place] [address] Hematocrit Volume Fraction (Bld) 32.1 % Low 40.0-52.0 [facility] Comment on above: Performed By: #### T SGL #### [address] [address] Hemoglobin mass conc (Bld) 10.7 g/dL Low 13.0-18.0 [facility] Comment on above: Performed By: #### T SGL #### [address] [place] [address] Lymphocytes #/vol (Bld) 1.3 10*3/uL Normal 1.0-4.3 [facility] Comment on above: Performed By: #### T SGL #### [address] [place] [address] Lymphocytes/100 WBC (Bld) 9.8 % Low 20.0-40.0 [facility] Comment on above: Performed By: #### T SGL #### [address] [place] [address] MCH Entitic mass (RBC) 29.0 pg Normal 26.0-34.0 [facility] Comment on above: Performed By: #### T SGL #### [address] [place] [address] MCHC mass conc (RBC) 33.4 % Normal 32.0-36.0 [facility] Comment on above: Performed By: #### T SGL #### [facility] [address] [place] [address] MCV Entitic volume (RBC) 86.9 fL Normal 80.0-98.0 [facility] Comment on above: Performed By: #### T SGL #### [facility] [address] [place] [address] Monocytes #/vol (Bld) 0.9 10*3/uL High 0.0-0.8 [facility] Comment on above: Performed By: #### T SGL #### [address] [place] [address] Monocytes/100 WBC (Bld) 6.8 % Normal 2.0-10.0 [facility] Comment on above: Performed By: #### T SGL #### [address] [place] [address] Platelet mean volume Entitic volume (Bld) 7.4 fL Normal 7.4-10.4 [facility] Comment on above: Performed By: #### T SGL #### [address] [place] [address] Platelets #/vol (Bld) 367 10*3/uL Normal 140-440 [facility] Comment on above: Performed By: #### T SGL #### [address] [place] [address] RBC #/vol (Bld) 3.69 10*6/uL Low 4.40-5.90 [facility] Comment on above: Performed By: #### T SGL #### [address] [place] [address] WBC #/vol (Bld) 13.6 10*3/uL High 3.6-10.7 [facility] Comment on above: Performed By: #### T SGL #### [address] [place] [address] Magnesiumon 07-21-2018 Magnesium mass conc 2.6 mg/dL High 1.6-2.3 [facility] Comment on above: Performed By: #### T SGL #### [address] [place] [address] Phosphoruson 07-21-2018 Phosphate mass conc 4.2 mg/dL Normal 2.5-4.5 [facility] Comment on above: Performed By: #### T SGL #### [facility] [address] [facility] [place] [address] Triglycerideon 07-21-2018 Triglyceride mass conc 105 mg/dL Normal <150 [facility] Comment on above: Performed By: #### T SGL #### [facility] [address] [facility] [place] [address] Add on test from HISon 07-20 Add on test from HIS Accepted Normal [facility] Comment on above: Result Comment: Spec imen available & acceptable for analysis. Performed By: #### A DDON #### [address] [place] [address] Basic Metabolic Panelon 06-30 Calcium mass conc 7.7 mg/dL Low 8.4-10.4 [facility] Comment on above: Performed By: #### A DDON #### [address] [place] Glucose mass conc 96 mg/dL Normal 70-100 [facility] Comment on above: Performed By: #### A DDON #### [address] [place] [address] Urea nitrogen mass conc 22 mg/dL High 7-20 [facility] Comment on above: Performed By: #### A DDON #### [address] [place] [address] Anion gap molar conc 10 Normal [facility] Comment on above: Performed By: #### A DDON #### [address] [place] [address] CO2 molar conc 29 mmol/L Normal 22-30 [facility] Comment on above: Performed By: #### A DDON #### [address] [place] [address] Creatinine mass conc 0.87 mg/dL Normal 0.52-1.25 [facility] Comment on above: Performed By: #### A DDON #### [address] [place] [address] GFR/1.73 sq M predicted among blacks MDRD vol rate/area (S/P/Bld) mL/min/{1.73_m2} Normal >60 [facility] Comment on above: Performed By: #### A DDON #### [facility] [address] [place] [address] GFR/1.73 sq M predicted among non-blacks MDRD vol rate/area (S/P/Bld) mL/min/{1.73_m2} Normal >60 [facility] Comment on above: Result Comment: Sour ce- MDRD equation with creatinine calibration to IDMS(NKDEP) eGFR not recommended for drug dose adjustment Performed By: #### A DDON #### [address] [place] [address] Potassium molar conc 3.6 mmol/L Normal 3.5-5.1 [facility] Comment on above: Performed By: #### A DDON #### [address] [place] [address] Chloride molar conc 105 mmol/L Normal 98-107 [facility] Comment on above: Performed By: #### A DDON #### [address] [place] [address] Sodium molar conc 144 mmol/L Normal 135-145 [facility] Comment on above: Performed By: #### A DDON #### [address] [place] [address] CR Abdomen APon 07-20-2018 CR Abdomen AP Patient Name: KATHYA HOOPER Diagnostic Radiology Exam Date/Time 07/20/2018 08:39:45 EDT Exam CR Abdomen AP Ordering Physician [id number] AGUILERA Accession Number [id number] CPT4 Codes 30991 () Reason For Exam ileus Report Clinical [...] Transcribed Date and Time: 07/20/2018 9:29 Normal [facility] CR Chest Portableon 07-21-19 19 CR Chest Portable Patient Name: KATHYA HOOPER Diagnostic Radiology Exam Date/Time 07/20/2018 08:39:26 EDT Exam CR Chest Portable Ordering Physician MARIA EUGENIA PEREZ Accession Number [id number] CPT4 Codes 04425 () Reason For Exam ETT placement Report [...] Transcribed Date and Time: 07/20/2018 9:28 Normal [facility] CT Abdomen/Pelvis w/ Contras ton 07-20-2018 CT Abdomen/Pelvis w/ Contrast Patient Name: KATHYA HOOPER CT Exam Date/Time 07/20/2018 11:30:[address] Abdomen/Pelvis w/ IV Contrast (IV Onl Ordering Physician JOYA ROJAS Accession Number [id number] CPT4 Codes 53325 (CT Abdomen/Pelvis w/ IV Contrast (IV Onl) [...] Transcribed Date and Time: 07/20/2018 1:[address] [facility] [address] Chest w/ Contraston 07-20 CT Chest w/ Contrast Patient Name: KATHYA RAY CT Exam Date/Time 07/20/2018 11:30:[address] Chest w/ Contrast Ordering Physician [id number] JOYA PERRY Accession Number [id number] CPT4 Codes 42878 (), Q9967 (CT ISOVUE [id number]) Reason For Exam SOB, possible pneumonia Report [...] Transcribed Date and Time: 07/20/2018 1:28 Normal [facility] Glucose,Bedsideon 07-20-2018 Glucose mass conc 128 mg/dL High 70-100 [facility] Comment on above: Result Comment: Test performed by glucose meter. Results may be 10%-15% lower than serum/plasma values. (CLIA ID [id number]) Performed By: #### A DDON #### [facility] [address] [place] [address] Hemogram w/ Autodiffon 07-20 Abs Baso Cnt 0.1 10*3/uL Normal 0.0-0.2 [facility] Comment on above: Performed By: #### H EMDF, PT, BMP3M, PHOS3, MG3, CK3 #### [facility] [address] [place] [address] #### VD25H #### [facility] [address] [place] [address] Abs Neutrophile Cnt 13.0 10*3/uL High 1.8-7.0 [facility] Comment on above: Performed By: #### H EMDF, PT, BMP3M, PHOS3, MG3, CK3 #### [facility] [address] [place] #### VD25H #### [facility] [address] [place] [address] Basophils/100 WBC (Bld) 0.3 % Normal 0.0-2.0 [facility] Comment on above: Performed By: #### H EMDF, PT, BMP3M, PHOS3, MG3, CK3 #### [address] [place] #### VD25H #### [facility] [address] [place] [address] Eosinophils #/vol (Bld) 0.3 10*3/uL Normal 0.0-0.5 [facility] Comment on above: Performed By: #### H EMDF, PT, BMP3M, PHOS3, MG3, CK3 #### [address] [place] #### VD25H #### [facility] [address] [place] [address] Eosinophils/100 WBC (Bld) 1.9 % Normal 1.0-6.0 [facility] Comment on above: Performed By: #### H EMDF, PT, BMP3M, PHOS3, MG3, CK3 #### [address] [place] #### VD25H #### [facility] [address] [place] [address] Erythrocyte distribution width Ratio (RBC) 13.3 % Normal 11.5-14.5 [facility] Comment on above: Performed By: #### H EMDF, PT, BMP3M, PHOS3, MG3, CK3 #### [address] [place] #### VD25H #### [facility] [address] [place] [address] Granulocytes/100 WBC (Bld) 81.8 % High 40.0-80.0 [facility] Comment on above: Performed By: #### H EMDF, PT, BMP3M, PHOS3, MG3, CK3 #### [facility] [address] [place] #### VD25H #### [facility] [address] [place] [address] Hematocrit Volume Fraction (Bld) 33.6 % Low 40.0-52.0 [facility] Comment on above: Performed By: #### H EMDF, PT, BMP3M, PHOS3, MG3, CK3 #### [address] [place] #### VD25H #### [facility] [address] [place] [address] Hemoglobin mass conc (Bld) 11.4 g/dL Low 13.0-18.0 [facility] Comment on above: Performed By: #### H EMDF, PT, BMP3M, PHOS3, MG3, CK3 #### [address] #### VD25H #### [facility] [address] [place] [address] Lymphocytes #/vol (Bld) 1.5 10*3/uL Normal 1.0-4.3 [facility] Comment on above: Performed By: #### H EMDF, PT, BMP3M, PHOS3, MG3, CK3 #### [address] [place] #### VD25H #### [facility] [address] [place] [address] Lymphocytes/100 WBC (Bld) 9.2 % Low 20.0-40.0 [facility] Comment on above: Performed By: #### H EMDF, PT, BMP3M, PHOS3, MG3, CK3 #### [address] #### VD25H #### [facility] [address] [place] [address] MCH Entitic mass (RBC) 29.3 pg Normal 26.0-34.0 [facility] Comment on above: Performed By: #### H EMDF, PT, BMP3M, PHOS3, MG3, CK3 #### [facility] [address] [place] #### VD25H #### [facility] [address] [place] [address] MCHC mass conc (RBC) 33.9 % Normal 32.0-36.0 [facility] Comment on above: Performed By: #### H EMDF, PT, BMP3M, PHOS3, MG3, CK3 #### [address] [place] #### VD25H #### [facility] [address] [place] [address] MCV Entitic volume (RBC) 86.5 fL Normal 80.0-98.0 [facility] Comment on above: Performed By: #### H EMDF, PT, BMP3M, PHOS3, MG3, CK3 #### [address] [place] #### VD25H #### [facility] [address] [place] [address] Monocytes #/vol (Bld) 1.1 10*3/uL High 0.0-0.8 [facility] Comment on above: Performed By: #### H EMDF, PT, BMP3M, PHOS3, MG3, CK3 #### [address] [place] #### VD25H #### [facility] [address] [place] [address] Monocytes/100 WBC (Bld) 6.8 % Normal 2.0-10.0 [facility] Comment on above: Performed By: #### H EMDF, PT, BMP3M, PHOS3, MG3, CK3 #### [address] #### VD25H #### [facility] [address] [place] [address] Platelet mean volume Entitic volume (Bld) 7.5 fL Normal 7.4-10.4 [facility] Comment on above: Performed By: #### H EMDF, PT, BMP3M, PHOS3, MG3, CK3 #### [address] [place] #### VD25H #### [facility] [address] [place] [address] Platelets #/vol (Bld) 375 10*3/uL Normal 140-440 [facility] Comment on above: Performed By: #### H EMDF, PT, BMP3M, PHOS3, MG3, CK3 #### [address] #### VD25H #### [facility] [address] [place] [address] RBC #/vol (Bld) 3.88 10*6/uL Low 4.40-5.90 [facility] Comment on above: Performed By: #### H EMDF, PT, BMP3M, PHOS3, MG3, CK3 #### [address] #### VD25H #### [facility] [address] [place] [address] WBC #/vol (Bld) 15.9 10*3/uL High 3.6-10.7 [facility] Comment on above: Performed By: #### H EMDF, PT, BMP3M, PHOS3, MG3, CK3 #### [address] #### VD25H #### [facility] [address] [place] [address] Phosphoruson 07-20-2018 Phosphate mass conc 5.5 mg/dL High 2.5-4.5 [facility] Comment on above: Performed By: #### A DDON #### [address] Add on test from HISon 07-19 Add on test from HIS Accepted Normal [facility] Comment on above: Result Comment: Spec imen available & acceptable for analysis. Performed By: #### H EMDF, PT, BMP3M, PHOS3, MG3, CK3 #### [facility] [address] [place] #### VD25H #### [facility] [address] [place] [address] Arterial Blood Gaseson 07-19 CO2 molar conc 31.5 mmol/L High 23.0-27.0 [facility] Comment on above: Performed By: #### H EMDF, PT, BMP3M, PHOS3, MG3, CK3 #### [address] #### VD25H #### [facility] [address] [place] [address] HCO3 molar conc (Bld) 30.2 mmol/L High 21.0-25.0 [facility] Comment on above: Performed By: #### H EMDF, PT, BMP3M, PHOS3, MG3, CK3 #### [address] #### VD25H #### [facility] [address] [place] [address] Hemoglobin mass conc (Bld) 11.7 g/dL Normal ScreenOnly [facility] Comment on above: Performed By: #### H EMDF, PT, BMP3M, PHOS3, MG3, CK3 #### [address] #### VD25H #### [facility] [address] [facility] [place] [address] Oxygen ppres (Bld) 85.1 mm[Hg] Normal 80.0-100.0 [facility] Comment on above: Performed By: #### H EMDF, PT, BMP3M, PHOS3, MG3, CK3 #### [address] #### VD25H #### [facility] [address] [place] [address] Oxygen saturation in Blood 95.9 % Normal 95.0-100.0 [facility] Comment on above: Performed By: #### H EMDF, PT, BMP3M, PHOS3, MG3, CK3 #### [facility] [address] [place] #### VD25H #### [facility] [address] [place] [address] pCO2 43.6 mm[Hg] Normal 35.0-45.0 [facility] Comment on above: Performed By: #### H EMDF, PT, BMP3M, PHOS3, MG3, CK3 #### [address] [place] #### VD25H #### [place] [address] [place] [address] pH (Bld) 7.458 High 7.350-7.450 [facility] Comment on above: Performed By: #### H EMDF, PT, BMP3M, PHOS3, MG3, CK3 #### [address] [place] #### VD25H #### [facility] [address] [place] [address] Std Base Excess 5.7 mmol/L High -3.0-3.0 [facility] Comment on above: Performed By: #### H EMDF, PT, BMP3M, PHOS3, MG3, CK3 #### [address] [place] #### VD25H #### [facility] [address] [place] [address] FIO2 40% Normal [facility] Comment on above: Performed By: #### H EMDF, PT, BMP3M, PHOS3, MG3, CK3 #### [address] [place] #### VD25H #### [facility] [address] [place] [address] Basic Metabolic Panelon 03-2 Calcium mass conc 7.5 mg/dL Low 8.4-10.4 [facility] Comment on above: Performed By: #### H EMDF, PT, BMP3M, PHOS3, MG3, CK3 #### [address] [place] #### VD25H #### [facility] [address] [place] [address] Glucose mass conc 274 mg/dL High 70-100 [facility] Comment on above: Performed By: #### H EMDF, PT, BMP3M, PHOS3, MG3, CK3 #### [address] [facility], [place] #### VD25H #### [facility] [address] [place] [address] Anion gap molar conc 6 Normal [facility] Comment on above: Performed By: #### H EMDF, PT, BMP3M, PHOS3, MG3, CK3 #### [address] [place] #### VD25H #### [facility] [address] [place] [address] CO2 molar conc 31 mmol/L High 22-30 [facility] Comment on above: Performed By: #### H EMDF, PT, BMP3M, PHOS3, MG3, CK3 #### [address] [place] #### VD25H #### [facility] [address] [place] [address] Creatinine mass conc 0.64 mg/dL Normal 0.52-1.25 [facility] Comment on above: Performed By: #### H EMDF, PT, BMP3M, PHOS3, MG3, CK3 #### [address] [facility], [place] #### VD25H #### [facility] [address] [place] [address] GFR/1.73 sq M predicted among blacks MDRD vol rate/area (S/P/Bld) mL/min/{1.73_m2} Normal >60 [facility] Comment on above: Performed By: #### H EMDF, PT, BMP3M, PHOS3, MG3, CK3 #### [address] [address] #### VD25H #### [facility] [address] [place] [address] GFR/1.73 sq M predicted among non-blacks MDRD vol rate/area (S/P/Bld) mL/min/{1.73_m2} Normal >60 [facility] Comment on above: Result Comment: Sour ce- MDRD equation with creatinine calibration to IDMS(NKDEP) eGFR not recommended for drug dose adjustment Performed By: #### H EMDF, PT, BMP3M, PHOS3, MG3, CK3 #### [address] #### VD25H #### [facility] [address] [place] [address] Urea nitrogen mass conc 15 mg/dL Normal 7-20 [facility] Comment on above: Performed By: #### H EMDF, PT, BMP3M, PHOS3, MG3, CK3 #### [address] #### VD25H #### [facility] [address] [place] [address] Chloride molar conc 105 mmol/L Normal 98-107 [facility] Comment on above: Performed By: #### H EMDF, PT, BMP3M, PHOS3, MG3, CK3 #### [address] #### VD25H #### [facility] [address] [place] [address] Potassium molar conc 4.3 mmol/L Normal 3.5-5.1 [facility] Comment on above: Performed By: #### H EMDF, PT, BMP3M, PHOS3, MG3, CK3 #### [facility] [address] [place] [address] #### VD25H #### [facility] [address] [place] [address] Sodium molar conc 141 mmol/L Normal 135-145 [facility] Comment on above: Performed By: #### H EMDF, PT, BMP3M, PHOS3, MG3, CK3 #### [facility] [address] [facility] [place] [address] #### VD25H #### [facility] [address] [place] [address] CR Abdomen APon 07-19-2018 CR Abdomen AP Patient Name: KATHYA HOOPER Diagnostic Radiology Exam Date/Time 07/19/2018 06:44:12 EDT Exam CR Abdomen AP Ordering Physician JOYA ROJAS Accession Number [id number] CPT4 Codes 91190 () Reason For Exam ileus Report Abdomen: [...] Transcribed Date and Time: 07/19/2018 7:46 Normal [facility] CR Chest Portableon 07-20-19 19 CR Chest Portable Patient Name: KATHYA HOOPER Diagnostic Radiology Exam Date/Time 07/19/2018 06:43:52 EDT Exam CR Chest Portable Ordering Physician MARIA EUGENIA PEREZ Accession Number [id number] CPT4 Codes 90981 () Reason For Exam ETT placement Report [...] Dictated: 07/19/2018 7:44 am Dictating Physician: MD ELIZABETH, PETE Signed Date and Time: 07/19/2018 7:45 am Signed by: MD JOHNSON RISA Transcribed Date and Time: 07/19/2018 7:44 Normal [facility] Glucose,Bedsideon 07-19-2018 Glucose mass conc 95 mg/dL Normal 70-100 [facility] Comment on above: Result Comment: Test performed by glucose meter. Results may be 10%-15% lower than serum/plasma values. (CLIA ID [id number]) Performed By: #### H EMDF, PT, BMP3M, PHOS3, MG3, CK3 #### [address] #### VD25H #### [facility] [address] [place] [address] Hemogram w/ Autodiffon 07-19 Abs Baso Cnt 0.1 10*3/uL Normal 0.0-0.2 [facility] Comment on above: Performed By: #### H EMDF, PT, BMP3M, PHOS3, MG3, CK3 #### [address] #### VD25H #### [facility] [address] [place] [address] Abs Neutrophile Cnt 9.8 10*3/uL High 1.8-7.0 [facility] Comment on above: Performed By: #### H EMDF, PT, BMP3M, PHOS3, MG3, CK3 #### [address] [place], [place] #### VD25H #### [facility] [address] [place] [address] Basophils/100 WBC (Bld) 0.5 % Normal 0.0-2.0 [facility] Comment on above: Performed By: #### H EMDF, PT, BMP3M, PHOS3, MG3, CK3 #### [facility] [address] [place] #### VD25H #### [facility] [address] [place] [address] Eosinophils #/vol (Bld) 0.3 10*3/uL Normal 0.0-0.5 [facility] Comment on above: Performed By: #### H EMDF, PT, BMP3M, PHOS3, MG3, CK3 #### [address] #### VD25H #### [facility] [address] [place] [address] Eosinophils/100 WBC (Bld) 2.5 % Normal 1.0-6.0 [facility] Comment on above: Performed By: #### H EMDF, PT, BMP3M, PHOS3, MG3, CK3 #### [address] #### VD25H #### [facility] [address] [place] [address] Erythrocyte distribution width Ratio (RBC) 13.3 % Normal 11.5-14.5 [facility] Comment on above: Performed By: #### H EMDF, PT, BMP3M, PHOS3, MG3, CK3 #### [address] #### VD25H #### [facility] [address] [place] [address] Granulocytes/100 WBC (Bld) 80.4 % High 40.0-80.0 [facility] Comment on above: Performed By: #### H EMDF, PT, BMP3M, PHOS3, MG3, CK3 #### [address] #### VD25H #### [facility] [address] [place] [address] Hematocrit Volume Fraction (Bld) 30.6 % Low 40.0-52.0 [facility] Comment on above: Performed By: #### H EMDF, PT, BMP3M, PHOS3, MG3, CK3 #### [address] [place] #### VD25H #### [facility] [address] [place] [address] Hemoglobin mass conc (Bld) 10.5 g/dL Low 13.0-18.0 [facility] Comment on above: Performed By: #### H EMDF, PT, BMP3M, PHOS3, MG3, CK3 #### [address] #### VD25H #### [facility] [address] [place] [address] Lymphocytes #/vol (Bld) 1.1 10*3/uL Normal 1.0-4.3 [facility] Comment on above: Performed By: #### H EMDF, PT, BMP3M, PHOS3, MG3, CK3 #### [address] #### VD25H #### [facility] [address] [place] [address] Lymphocytes/100 WBC (Bld) 9.1 % Low 20.0-40.0 [facility] Comment on above: Performed By: #### H EMDF, PT, BMP3M, PHOS3, MG3, CK3 #### [address] #### VD25H #### [facility] [address] [place] [address] MCH Entitic mass (RBC) 29.7 pg Normal 26.0-34.0 [facility] Comment on above: Performed By: #### H EMDF, PT, BMP3M, PHOS3, MG3, CK3 #### [address] #### VD25H #### [facility] [address] [place] [address] MCHC mass conc (RBC) 34.3 % Normal 32.0-36.0 [facility] Comment on above: Performed By: #### H EMDF, PT, BMP3M, PHOS3, MG3, CK3 #### [address] [place] #### VD25H #### [facility] [address] [place] [address] MCV Entitic volume (RBC) 86.7 fL Normal 80.0-98.0 [facility] Comment on above: Performed By: #### H EMDF, PT, BMP3M, PHOS3, MG3, CK3 #### [address] #### VD25H #### [facility] [address] [place] [address] Monocytes #/vol (Bld) 0.9 10*3/uL High 0.0-0.8 [facility] Comment on above: Performed By: #### H EMDF, PT, BMP3M, PHOS3, MG3, CK3 #### [address] #### VD25H #### [facility] [address] [place] [address] Monocytes/100 WBC (Bld) 7.5 % Normal 2.0-10.0 [facility] Comment on above: Performed By: #### H EMDF, PT, BMP3M, PHOS3, MG3, CK3 #### [address] #### VD25H #### [facility] [address] [place] [address] Platelet mean volume Entitic volume (Bld) 7.3 fL Low 7.4-10.4 [facility] Comment on above: Performed By: #### H EMDF, PT, BMP3M, PHOS3, MG3, CK3 #### [facility] [address] [place] #### VD25H #### [facility] [address] [place] [address] Platelets #/vol (Bld) 329 10*3/uL Normal 140-440 [facility] Comment on above: Performed By: #### H EMDF, PT, BMP3M, PHOS3, MG3, CK3 #### [address] [address] [place], [place] #### VD25H #### [facility] [address] [place] [address] RBC #/vol (Bld) 3.53 10*6/uL Low 4.40-5.90 [facility] Comment on above: Performed By: #### H EMDF, PT, BMP3M, PHOS3, MG3, CK3 #### [address] #### VD25H #### [facility] [address] [place] [address] WBC #/vol (Bld) 12.2 10*3/uL High 3.6-10.7 [facility] Comment on above: Performed By: #### H EMDF, PT, BMP3M, PHOS3, MG3, CK3 #### [facility] [address] [place] #### VD25H #### [facility] [address] [place] [address] Magnesiumon 07-19-2018 Magnesium mass conc 2.3 mg/dL Normal 1.6-2.3 [facility] Comment on above: Performed By: #### H EMDF, PT, BMP3M, PHOS3, MG3, CK3 #### [address] #### VD25H #### [facility] [address] [place] [address] Procalcitoninon 07-19-2018 Protein mass conc 0.15 ng/mL Abnormal <0.10 [facility] Comment on above: Performed By: #### H EMDF, PT, BMP3M, PHOS3, MG3, CK3 #### [facility] [address] [place] [address] #### VD25H #### [facility] [address] [facility] [place] [address] Interpretation See Below Normal [facility] Comment on above: Result Comment: PCT <0.50 = Low risk of severe sepsis and/or septic shock. PCT >2.00 = High risk of severe sepsis and/or septic shock. Performed By: #### H EMDF, PT, BMP3M, PHOS3, MG3, CK3 #### [address] [address] #### VD25H #### [place] [address] [place] [address] VL Venous Duplex US Lower Ex t Bilateralon 07-19-2018 VL Venous Duplex US Lower Ext Bilateral Patient Name: KATHYA HOOPER Ultrasound Exam Date/Time 07/19/2018 11:10:14 EDT Exam VL Venous Duplex US Lower Ext Bilateral Ordering Physician ETIENNE MARTÍNEZ JULIE Accession Number [id number] CPT4 Codes 07619 () Reason For Exam edema Report [facility] --- Lower Extremity Venous Duplex Report Patient Name: Kathya Hooper : 1955 Study Date: 07/19/2018 W (63yrs) Age: 63 Account: [id number] Gender: M Loc: T209 BP: Ordering: Yesenia Martínez Technologist: Ordering Physician: Yesenia Martínez Cisco Engineer: León Chaidez [facility], [facility] Interpreting Physician: Ricardo Hall MD --- Location: [facility] --- INDICATIONS: Edema. bilateral calf [...] performed. The images were obtained using a [employer] E9 vascular ultrasound machine. --- VENOUS FLOW [...] --+ Electronically signed by: Ricardo Hall MD [id number] Final Dictated: 07/20/2018 10:49 am Dictating Physician: RICARDO HALL Signed Date and Time: 07/19/2018 11:03 am Signed by: RICARDO HALL Normal [facility] Basic Metabolic Panelon 06-30 Calcium mass conc 7.9 mg/dL Low 8.4-10.4 [facility] Comment on above: Performed By: #### H EMDF, PT, BMP3M, PHOS3, MG3, CK3 #### [address] #### VD25H #### [facility] [address] [place] [address] Glucose mass conc 113 mg/dL High 70-100 [facility] Comment on above: Performed By: #### H EMDF, PT, BMP3M, PHOS3, MG3, CK3 #### [address] #### VD25H #### [facility] [address] [place] [facility] [address] Anion gap molar conc 7 Normal [facility] Comment on above: Performed By: #### H EMDF, PT, BMP3M, PHOS3, MG3, CK3 #### [address] #### VD25H #### [facility] [address] [place] [address] CO2 molar conc 31 mmol/L High 22-30 [facility] Comment on above: Performed By: #### H EMDF, PT, BMP3M, PHOS3, MG3, CK3 #### [address] #### VD25H #### [facility] [address] [place] [address] Creatinine mass conc 0.59 mg/dL Normal 0.52-1.25 [facility] Comment on above: Performed By: #### H EMDF, PT, BMP3M, PHOS3, MG3, CK3 #### [address] #### VD25H #### [facility] [address] [place] [address] GFR/1.73 sq M predicted among blacks MDRD vol rate/area (S/P/Bld) mL/min/{1.73_m2} Normal >60 [facility] Comment on above: Performed By: #### H EMDF, PT, BMP3M, PHOS3, MG3, CK3 #### [address] #### VD25H #### [facility] [address] [place] [address] GFR/1.73 sq M predicted among non-blacks MDRD vol rate/area (S/P/Bld) mL/min/{1.73_m2} Normal >60 [facility] Comment on above: Result Comment: Sour ce- MDRD equation with creatinine calibration to IDMS(NKDEP) eGFR not recommended for drug dose adjustment Performed By: #### H EMDF, PT, BMP3M, PHOS3, MG3, CK3 #### [address] #### VD25H #### [facility] [address] [place] [address] Urea nitrogen mass conc 19 mg/dL Normal 7-20 [facility] Comment on above: Performed By: #### H EMDF, PT, BMP3M, PHOS3, MG3, CK3 #### [address] #### VD25H #### [facility] [address] [place] [address] Chloride molar conc 104 mmol/L Normal 98-107 [facility] Comment on above: Performed By: #### H EMDF, PT, BMP3M, PHOS3, MG3, CK3 #### [facility] [address] [place] #### VD25H #### [facility] [address] [place] [address] Potassium molar conc 3.4 mmol/L Low 3.5-5.1 [facility] Comment on above: Performed By: #### H EMDF, PT, BMP3M, PHOS3, MG3, CK3 #### [facility] [address] [place] #### VD25H #### [facility] [address] [place] [address] Sodium molar conc 142 mmol/L Normal 135-145 [facility] Comment on above: Performed By: #### H EMDF, PT, BMP3M, PHOS3, MG3, CK3 #### [facility] [address] [place] #### VD25H #### [facility] [address] [place] [address] CR Abdomen APon 07-18-2018 CR Abdomen AP Patient Name: KATHYA HOOPER Diagnostic Radiology Exam Date/Time 07/18/2018 06:52:18 EDT Exam CR Abdomen AP Ordering Physician [id number] THAKKAR Accession Number [id number] CPT4 Codes 88432 () Reason For Exam ileus Report CLINICAL [...] Transcribed Date and Time: 07/18/2018 2:33 Normal [facility] CR Chest Portableon 07-19-19 19 CR Chest Portable Patient Name: KATHYA HOOPER Diagnostic Radiology Exam Date/Time 07/18/2018 06:52:50 EDT Exam CR Chest Portable Ordering Physician MARIA EUGENIA PEREZ Accession Number [id number] CPT4 Codes 67054 () Reason For Exam ETT placement Report [...] Transcribed Date and Time: 07/18/2018 2:32 Normal [facility] Hemogram w/ Autodiffon 07-18 Abs Baso Cnt 0.0 10*3/uL Normal 0.0-0.2 [facility] Comment on above: Performed By: #### H EMDF, PT, BMP3M, PHOS3, MG3, CK3 #### [facility] [address] [place] #### VD25H #### [facility] [address] [place] [address] Abs Neutrophile Cnt 8.6 10*3/uL High 1.8-7.0 [facility] Comment on above: Performed By: #### H EMDF, PT, BMP3M, PHOS3, MG3, CK3 #### [place] [address] [place] #### VD25H #### [facility] [address] [place] [address] Basophils/100 WBC (Bld) 0.4 % Normal 0.0-2.0 [facility] Comment on above: Performed By: #### H EMDF, PT, BMP3M, PHOS3, MG3, CK3 #### [place] [address] [place] #### VD25H #### [facility] [address] [place] [address] Eosinophils #/vol (Bld) 0.2 10*3/uL Normal 0.0-0.5 [facility] Comment on above: Performed By: #### H EMDF, PT, BMP3M, PHOS3, MG3, CK3 #### [place] [address] [place] #### VD25H #### [facility] [address] [place] [address] Eosinophils/100 WBC (Bld) 2.1 % Normal 1.0-6.0 [facility] Comment on above: Performed By: #### H EMDF, PT, BMP3M, PHOS3, MG3, CK3 #### [address] #### VD25H #### [facility] [address] [place] [address] Erythrocyte distribution width Ratio (RBC) 13.4 % Normal 11.5-14.5 [facility] Comment on above: Performed By: #### H EMDF, PT, BMP3M, PHOS3, MG3, CK3 #### [facility] [address] [place] #### VD25H #### [facility] [address] [place] [address] Granulocytes/100 WBC (Bld) 80.0 % Normal 40.0-80.0 [facility] Comment on above: Performed By: #### H EMDF, PT, BMP3M, PHOS3, MG3, CK3 #### [address] #### VD25H #### [facility] [address] [place] [address] Hematocrit Volume Fraction (Bld) 37.3 % Low 40.0-52.0 [facility] Comment on above: Performed By: #### H EMDF, PT, BMP3M, PHOS3, MG3, CK3 #### [address] #### VD25H #### [facility] [address] [place] [address] Hemoglobin mass conc (Bld) 12.6 g/dL Low 13.0-18.0 [facility] Comment on above: Performed By: #### H EMDF, PT, BMP3M, PHOS3, MG3, CK3 #### [place] [address] [place], [place] #### VD25H #### [facility] [address] [place] [address] Lymphocytes #/vol (Bld) 1.1 10*3/uL Normal 1.0-4.3 [facility] Comment on above: Performed By: #### H EMDF, PT, BMP3M, PHOS3, MG3, CK3 #### [address] #### VD25H #### [facility] [address] [place] [address] Lymphocytes/100 WBC (Bld) 10.3 % Low 20.0-40.0 [facility] Comment on above: Performed By: #### H EMDF, PT, BMP3M, PHOS3, MG3, CK3 #### [place] [address] [place] #### VD25H #### [facility] [address] [place] [address] MCH Entitic mass (RBC) 29.4 pg Normal 26.0-34.0 [facility] Comment on above: Performed By: #### H EMDF, PT, BMP3M, PHOS3, MG3, CK3 #### [address] #### VD25H #### [facility] [address] [place] [address] MCHC mass conc (RBC) 33.9 % Normal 32.0-36.0 [facility] Comment on above: Performed By: #### H EMDF, PT, BMP3M, PHOS3, MG3, CK3 #### [address] #### VD25H #### [facility] [address] [place] [address] MCV Entitic volume (RBC) 86.8 fL Normal 80.0-98.0 [facility] Comment on above: Performed By: #### H EMDF, PT, BMP3M, PHOS3, MG3, CK3 #### [address] [place] #### VD25H #### [facility] [address] [place] [address] Monocytes #/vol (Bld) 0.8 10*3/uL Normal 0.0-0.8 [facility] Comment on above: Performed By: #### H EMDF, PT, BMP3M, PHOS3, MG3, CK3 #### [address] #### VD25H #### [facility] [address] [place] [address] Monocytes/100 WBC (Bld) 7.2 % Normal 2.0-10.0 [facility] Comment on above: Performed By: #### H EMDF, PT, BMP3M, PHOS3, MG3, CK3 #### [address] #### VD25H #### [facility] [address] [place] [address] Platelet mean volume Entitic volume (Bld) 7.8 fL Normal 7.4-10.4 [facility] Comment on above: Performed By: #### H EMDF, PT, BMP3M, PHOS3, MG3, CK3 #### [address] #### VD25H #### [place] [address] [place] [address] Platelets #/vol (Bld) 301 10*3/uL Normal 140-440 [facility] Comment on above: Performed By: #### H EMDF, PT, BMP3M, PHOS3, MG3, CK3 #### [address] #### VD25H #### [place] [address] [place] [address] RBC #/vol (Bld) 4.29 10*6/uL Low 4.40-5.90 [facility] Comment on above: Performed By: #### H EMDF, PT, BMP3M, PHOS3, MG3, CK3 #### [address] #### VD25H #### [facility] [address] [place] [address] WBC #/vol (Bld) 10.8 10*3/uL High 3.6-10.7 [facility] Comment on above: Performed By: #### H EMDF, PT, BMP3M, PHOS3, MG3, CK3 #### [address] [place] #### VD25H #### [facility] [address] [place] [address] Arterial Blood Gaseson 07-17 CO2 molar conc 29.7 mmol/L High 23.0-27.0 [facility] Comment on above: Performed By: #### H EMDF, PT, BMP3M, PHOS3, MG3, CK3 #### [address] [place] #### VD25H #### [facility] [address] [place] [address] HCO3 molar conc (Bld) 28.4 mmol/L High 21.0-25.0 [facility] Comment on above: Performed By: #### H EMDF, PT, BMP3M, PHOS3, MG3, CK3 #### [address] #### VD25H #### [place] [address] [place] [address] Hemoglobin mass conc (Bld) 11.1 g/dL Normal [facility] Comment on above: Performed By: #### H EMDF, PT, BMP3M, PHOS3, MG3, CK3 #### [address] #### VD25H #### [place] [address] [place] [address] Oxygen ppres (Bld) 109.2 mm[Hg] High 80.0-100.0 [facility] Comment on above: Performed By: #### H EMDF, PT, BMP3M, PHOS3, MG3, CK3 #### [address] #### VD25H #### [place] [address] [place] [address] Oxygen saturation in Blood 97.8 % Normal 95.0-100.0 [facility] Comment on above: Performed By: #### H EMDF, PT, BMP3M, PHOS3, MG3, CK3 #### [facility] [address] [place] #### VD25H #### [facility] [address] [place] [address] pCO2 39.8 mm[Hg] Normal 35.0-45.0 [facility] Comment on above: Performed By: #### H EMDF, PT, BMP3M, PHOS3, MG3, CK3 #### [facility] [address] [place] #### VD25H #### [facility] [address] [place] [address] pH (Bld) 7.472 High 7.350-7.450 [facility] Comment on above: Performed By: #### H EMDF, PT, BMP3M, PHOS3, MG3, CK3 #### [place] [address] [place] #### VD25H #### [facility] [address] [place] [address] Std Base Excess 4.5 mmol/L High -3.0-3.0 [facility] Comment on above: Performed By: #### H EMDF, PT, BMP3M, PHOS3, MG3, CK3 #### [address] [place] #### VD25H #### [facility] [address] [place] [address] FIO2 60% Normal [facility] Comment on above: Performed By: #### H EMDF, PT, BMP3M, PHOS3, MG3, CK3 #### [place] [address] [place] #### VD25H #### [facility] [address] [place] [address] Basic Metabolic Panelon 06-29 Anion gap molar conc 6 Normal [facility] Comment on above: Performed By: #### H EMDF, PT, BMP3M, PHOS3, MG3, CK3 #### [place] [address] [place] #### VD25H #### [facility] [address] [place] [address] Calcium mass conc 8.0 mg/dL Low 8.4-10.4 [facility] Comment on above: Performed By: #### H EMDF, PT, BMP3M, PHOS3, MG3, CK3 #### [place] [address] [address] [facility], [place] #### VD25H #### [facility] [address] [place] [address] CO2 molar conc 31 mmol/L High 22-30 [facility] Comment on above: Performed By: #### H EMDF, PT, BMP3M, PHOS3, MG3, CK3 #### [place] [address] [address] [facility], [place] #### VD25H #### [facility] [address] [place] [address] Glucose mass conc 107 mg/dL High 70-100 [facility] Comment on above: Performed By: #### H EMDF, PT, BMP3M, PHOS3, MG3, CK3 #### [place] [address] [address] [facility], [place] #### VD25H #### [facility] [address] [place] [address] Urea nitrogen mass conc 22 mg/dL High 7-20 [facility] Comment on above: Performed By: #### H EMDF, PT, BMP3M, PHOS3, MG3, CK3 #### [place] [address] [address] [facility], [place] #### VD25H #### [facility] [address] [place] [address] Creatinine mass conc 0.66 mg/dL Normal 0.52-1.25 [facility] Comment on above: Performed By: #### H EMDF, PT, BMP3M, PHOS3, MG3, CK3 #### [place] [address] [address] [facility], [place] #### VD25H #### [facility] [address] [place] [address] GFR/1.73 sq M predicted among blacks MDRD vol rate/area (S/P/Bld) mL/min/{1.73_m2} Normal >60 [facility] Comment on above: Performed By: #### H EMDF, PT, BMP3M, PHOS3, MG3, CK3 #### [address] [address] #### VD25H #### [facility] [address] [place] [address] GFR/1.73 sq M predicted among non-blacks MDRD vol rate/area (S/P/Bld) mL/min/{1.73_m2} Normal >60 [facility] Comment on above: Result Comment: Sour ce- MDRD equation with creatinine calibration to IDMS(NKDEP) eGFR not recommended for drug dose adjustment Performed By: #### H EMDF, PT, BMP3M, PHOS3, MG3, CK3 #### [address] #### VD25H #### [facility] [address] [place] [address] Chloride molar conc 105 mmol/L Normal 98-107 [facility] Comment on above: Performed By: #### H EMDF, PT, BMP3M, PHOS3, MG3, CK3 #### [address] #### VD25H #### [facility] [address] [place] [address] Potassium molar conc 3.9 mmol/L Normal 3.5-5.1 [facility] Comment on above: Performed By: #### H EMDF, PT, BMP3M, PHOS3, MG3, CK3 #### [address] #### VD25H #### [facility] [address] [place] [address] Sodium molar conc 142 mmol/L Normal 135-145 [facility] Comment on above: Performed By: #### H EMDF, PT, BMP3M, PHOS3, MG3, CK3 #### [facility] [address] [facility] [place] [address] #### VD25H #### [facility] [address] [place] [address] CR Abdomen APon 07-17-2018 CR Abdomen AP Patient Name: KATHYA HOOPER Diagnostic Radiology Exam Date/Time 07/17/2018 12:46:31 EDT Exam CR Abdomen AP Ordering Physician JOYA ROJAS Accession Number [id number] CPT4 Codes 88879 () Reason For Exam ileus Report Abdomen: [...] Transcribed Date and Time: 07/17/2018 12:46 Normal [facility] CR Abdomen AP Patient Name: KATHYA HOOPER Diagnostic Radiology Exam Date/Time 07/17/2018 06:25:43 EDT Exam CR Abdomen AP Ordering Physician JOYA ROJAS Accession Number [id number] CPT4 Codes 80710 () Reason For Exam ileus Report Abdomen: [...] Transcribed Date and Time: 07/17/2018 7:16 Normal [facility] CR Chest Portableon 07-18-19 CR Chest Portable Patient Name: KATHYA HOOPER Diagnostic Radiology Exam Date/Time 07/17/2018 18:08:41 EDT Exam CR Chest Portable Ordering Physician SALO DAVIS Accession Number [id number] CPT4 Codes 79903 () Reason For Exam picc Report CHEST [...] Transcribed Date and Time: 07/17/2018 7:24 Normal [facility] CR Chest Portable Patient Name: KATHYA HOOPER Diagnostic Radiology Exam Date/Time 07/17/2018 18:08:41 EDT Exam CR Chest Portable Ordering Physician SALO DAVIS Accession Number [id number] CPT4 Codes 93259 () Reason For Exam reheck line tip [...] Transcribed Date and Time: 07/17/2018 7:21 Normal [facility] CR Chest Portable Patient Name: KATHYA HOOPER Diagnostic Radiology Exam Date/Time 07/17/2018 06:26:06 EDT Exam CR Chest Portable Ordering Physician MARIA EUGENIA PEREZ Accession Number [id number] CPT4 Codes 21361 () Reason For Exam ETT placement Report [...] Transcribed Date and Time: 07/17/2018 7:17 Normal [facility] Hemogram w/ Autodiffon 07-17 Abs Baso Cnt 0.0 10*3/uL Normal 0.0-0.2 [facility] Comment on above: Performed By: #### H EMDF, PT, BMP3M, PHOS3, MG3, CK3 #### [facility] [address] [place], [place] #### VD25H #### [facility] [address] [place] [address] Abs Neutrophile Cnt 8.1 10*3/uL High 1.8-7.0 [facility] Comment on above: Performed By: #### H EMDF, PT, BMP3M, PHOS3, MG3, CK3 #### [address] #### VD25H #### [facility] [address] [place] [address] Basophils/100 WBC (Bld) 0.4 % Normal 0.0-2.0 [facility] Comment on above: Performed By: #### H EMDF, PT, BMP3M, PHOS3, MG3, CK3 #### [address] #### VD25H #### [facility] [address] [facility] [place] [address] Eosinophils #/vol (Bld) 0.1 10*3/uL Normal 0.0-0.5 [facility] Comment on above: Performed By: #### H EMDF, PT, BMP3M, PHOS3, MG3, CK3 #### [address] #### VD25H #### [facility] [address] [facility] [place] [address] Eosinophils/100 WBC (Bld) 1.4 % Normal 1.0-6.0 [facility] Comment on above: Performed By: #### H EMDF, PT, BMP3M, PHOS3, MG3, CK3 #### [place] [address] [place] #### VD25H #### [facility] [address] [place] [address] Erythrocyte distribution width Ratio (RBC) 13.5 % Normal 11.5-14.5 [facility] Comment on above: Performed By: #### H EMDF, PT, BMP3M, PHOS3, MG3, CK3 #### [place] [address] [place] #### VD25H #### [facility] [address] [place] [address] Granulocytes/100 WBC (Bld) 78.6 % Normal 40.0-80.0 [facility] Comment on above: Performed By: #### H EMDF, PT, BMP3M, PHOS3, MG3, CK3 #### [place] [address] [place] #### VD25H #### [facility] [address] [place] [address] Hematocrit Volume Fraction (Bld) 31.3 % Low 40.0-52.0 [facility] Comment on above: Performed By: #### H EMDF, PT, BMP3M, PHOS3, MG3, CK3 #### [place] [address] [place], [place] #### VD25H #### [facility] [address] [place] [address] Hemoglobin mass conc (Bld) 10.4 g/dL Low 13.0-18.0 [facility] Comment on above: Performed By: #### H EMDF, PT, BMP3M, PHOS3, MG3, CK3 #### [address] #### VD25H #### [facility] [address] [place] [address] Lymphocytes #/vol (Bld) 1.0 10*3/uL Normal 1.0-4.3 [facility] Comment on above: Performed By: #### H EMDF, PT, BMP3M, PHOS3, MG3, CK3 #### [facility] [address] [place] [address] #### VD25H #### [facility] [address] [place] [address] Lymphocytes/100 WBC (Bld) 10.0 % Low 20.0-40.0 [facility] Comment on above: Performed By: #### H EMDF, PT, BMP3M, PHOS3, MG3, CK3 #### [address] #### VD25H #### [facility] [address] [place] [address] MCH Entitic mass (RBC) 29.3 pg Normal 26.0-34.0 [facility] Comment on above: Performed By: #### H EMDF, PT, BMP3M, PHOS3, MG3, CK3 #### [address] #### VD25H #### [facility] [address] [place] [address] MCHC mass conc (RBC) 33.3 % Normal 32.0-36.0 [facility] Comment on above: Performed By: #### H EMDF, PT, BMP3M, PHOS3, MG3, CK3 #### [address] #### VD25H #### [facility] [address] [facility] [place] [address] MCV Entitic volume (RBC) 87.9 fL Normal 80.0-98.0 [facility] Comment on above: Performed By: #### H EMDF, PT, BMP3M, PHOS3, MG3, CK3 #### [address] #### VD25H #### [facility] [address] [place] [address] Monocytes #/vol (Bld) 1.0 10*3/uL High 0.0-0.8 [facility] Comment on above: Performed By: #### H EMDF, PT, BMP3M, PHOS3, MG3, CK3 #### [facility] [address] [place], [place] #### VD25H #### [facility] [address] [place] [address] Monocytes/100 WBC (Bld) 9.6 % Normal 2.0-10.0 [facility] Comment on above: Performed By: #### H EMDF, PT, BMP3M, PHOS3, MG3, CK3 #### [address] #### VD25H #### [facility] [address] [place] [address] Platelet mean volume Entitic volume (Bld) 7.6 fL Normal 7.4-10.4 [facility] Comment on above: Performed By: #### H EMDF, PT, BMP3M, PHOS3, MG3, CK3 #### [address] #### VD25H #### [facility] [address] [place] [address] Platelets #/vol (Bld) 307 10*3/uL Normal 140-440 [facility] Comment on above: Performed By: #### H EMDF, PT, BMP3M, PHOS3, MG3, CK3 #### [address] #### VD25H #### [facility] [address] [place] [address] RBC #/vol (Bld) 3.56 10*6/uL Low 4.40-5.90 [facility] Comment on above: Performed By: #### H EMDF, PT, BMP3M, PHOS3, MG3, CK3 #### [address] #### VD25H #### [facility] [address] [place] [address] WBC #/vol (Bld) 10.2 10*3/uL Normal 3.6-10.7 [facility] Comment on above: Performed By: #### H EMDF, PT, BMP3M, PHOS3, MG3, CK3 #### [place] [address] [place] #### VD25H #### [facility] [address] [place] [address] Basic Metabolic Panelon 06-29 Calcium mass conc 8.1 mg/dL Low 8.4-10.4 [facility] Comment on above: Performed By: #### H EMDF, PT, BMP3M, PHOS3, MG3, CK3 #### [address] #### VD25H #### [place] [address] [place] [address] Anion gap molar conc 5 Normal [facility] Comment on above: Performed By: #### H EMDF, PT, BMP3M, PHOS3, MG3, CK3 #### [address] #### VD25H #### [facility] [address] [place] [address] CO2 molar conc 32 mmol/L High 22-30 [facility] Comment on above: Performed By: #### H EMDF, PT, BMP3M, PHOS3, MG3, CK3 #### [address] #### VD25H #### [facility] [address] [place] [address] Creatinine mass conc 0.62 mg/dL Normal 0.52-1.25 [facility] Comment on above: Performed By: #### H EMDF, PT, BMP3M, PHOS3, MG3, CK3 #### [place] [address] [place], [place] #### VD25H #### [facility] [address] [place] [address] GFR/1.73 sq M predicted among blacks MDRD vol rate/area (S/P/Bld) mL/min/{1.73_m2} Normal >60 [facility] Comment on above: Performed By: #### H EMDF, PT, BMP3M, PHOS3, MG3, CK3 #### [address] #### VD25H #### [place] [address] [place] [address] GFR/1.73 sq M predicted among non-blacks MDRD vol rate/area (S/P/Bld) mL/min/{1.73_m2} Normal >60 [facility] Comment on above: Result Comment: Sour ce- MDRD equation with creatinine calibration to IDMS(NKDEP) eGFR not recommended for drug dose adjustment Performed By: #### H EMDF, PT, BMP3M, PHOS3, MG3, CK3 #### [address] #### VD25H #### [place] [address] [place] [address] Glucose mass conc 103 mg/dL High 70-100 [facility] Comment on above: Performed By: #### H EMDF, PT, BMP3M, PHOS3, MG3, CK3 #### [address] #### VD25H #### [place] [address] [place] [address] Urea nitrogen mass conc 20 mg/dL Normal 7-20 [facility] Comment on above: Performed By: #### H EMDF, PT, BMP3M, PHOS3, MG3, CK3 #### [address] #### VD25H #### [place] [address] [place] [address] Chloride molar conc 107 mmol/L Normal 98-107 [facility] Comment on above: Performed By: #### H EMDF, PT, BMP3M, PHOS3, MG3, CK3 #### [facility] [address] [place] [address] #### VD25H #### [facility] [address] [place] [address] Potassium molar conc 3.7 mmol/L Normal 3.5-5.1 [facility] Comment on above: Performed By: #### H EMDF, PT, BMP3M, PHOS3, MG3, CK3 #### [facility] [address] [place] [address] #### VD25H #### [facility] [address] [place] [address] Sodium molar conc 145 mmol/L Normal 135-145 [facility] Comment on above: Performed By: #### H EMDF, PT, BMP3M, PHOS3, MG3, CK3 #### [facility] [address] [place] [address] #### VD25H #### [facility] [address] [place] [address] CR Abdomen APon 07-16-2018 CR Abdomen AP Patient Name: KATHYA HOOPER Diagnostic Radiology Exam Date/Time 07/16/2018 08:00:58 EDT Exam CR Abdomen AP Ordering Physician [id number] AGUILERA Accession Number [id number] CPT4 Codes 86307 () Reason For Exam ileus Report KUB [...] Transcribed Date and Time: 07/16/2018 10:03 Normal [facility] CR Chest Portableon 07-17-19 19 CR Chest Portable Patient Name: KATHYA HOOPER Diagnostic Radiology Exam Date/Time 07/16/2018 06:19:28 EDT Exam CR Chest Portable Ordering Physician MARIA EUGENIA PEREZ Accession Number [id number] CPT4 Codes 28331 () Reason For Exam ETT placement Report [...] Transcribed Date and Time: 07/16/2018 10:10 Normal [facility] Hemogram w/ Autodiffon 07-16 Abs Baso Cnt 0.0 10*3/uL Normal 0.0-0.2 [facility] Comment on above: Performed By: #### H EMDF, PT, BMP3M, PHOS3, MG3, CK3 #### [facility] [address] [place] [address] #### VD25H #### [facility] [address] [place] [address] Abs Neutrophile Cnt 8.7 10*3/uL High 1.8-7.0 [facility] Comment on above: Performed By: #### H EMDF, PT, BMP3M, PHOS3, MG3, CK3 #### [facility] [address] [place] #### VD25H #### [facility] [address] [place] [address] Basophils/100 WBC (Bld) 0.2 % Normal 0.0-2.0 [facility] Comment on above: Performed By: #### H EMDF, PT, BMP3M, PHOS3, MG3, CK3 #### [facility] [address] [place] #### VD25H #### [facility] [address] [place] [address] Eosinophils #/vol (Bld) 0.1 10*3/uL Normal 0.0-0.5 [facility] Comment on above: Performed By: #### H EMDF, PT, BMP3M, PHOS3, MG3, CK3 #### [facility] [address] [place], [place] #### VD25H #### [facility] [address] [place] [address] Eosinophils/100 WBC (Bld) 0.7 % Low 1.0-6.0 [facility] Comment on above: Performed By: #### H EMDF, PT, BMP3M, PHOS3, MG3, CK3 #### [facility] [address] [place], [place] #### VD25H #### [facility] [address] [place] [address] Erythrocyte distribution width Ratio (RBC) 13.7 % Normal 11.5-14.5 [facility] Comment on above: Performed By: #### H EMDF, PT, BMP3M, PHOS3, MG3, CK3 #### [facility] [address] [place], [place] #### VD25H #### [facility] [address] [place] [address] Granulocytes/100 WBC (Bld) 83.0 % High 40.0-80.0 [facility] Comment on above: Performed By: #### H EMDF, PT, BMP3M, PHOS3, MG3, CK3 #### [address] #### VD25H #### [facility] [address] [place] [address] Hematocrit Volume Fraction (Bld) 30.3 % Low 40.0-52.0 [facility] Comment on above: Performed By: #### H EMDF, PT, BMP3M, PHOS3, MG3, CK3 #### [address] #### VD25H #### [facility] [address] [place] [address] Hemoglobin mass conc (Bld) 10.5 g/dL Low 13.0-18.0 [facility] Comment on above: Performed By: #### H EMDF, PT, BMP3M, PHOS3, MG3, CK3 #### [address] #### VD25H #### [facility] [address] [place] [address] Lymphocytes #/vol (Bld) 0.7 10*3/uL Low 1.0-4.3 [facility] Comment on above: Performed By: #### H EMDF, PT, BMP3M, PHOS3, MG3, CK3 #### [address] #### VD25H #### [facility] [address] [place] [address] Lymphocytes/100 WBC (Bld) 6.7 % Low 20.0-40.0 [facility] Comment on above: Performed By: #### H EMDF, PT, BMP3M, PHOS3, MG3, CK3 #### [address] #### VD25H #### [facility] [address] [place] [address] MCH Entitic mass (RBC) 30.2 pg Normal 26.0-34.0 [facility] Comment on above: Performed By: #### H EMDF, PT, BMP3M, PHOS3, MG3, CK3 #### [address] #### VD25H #### [facility] [address] [place] [address] MCHC mass conc (RBC) 34.6 % Normal 32.0-36.0 [facility] Comment on above: Performed By: #### H EMDF, PT, BMP3M, PHOS3, MG3, CK3 #### [address] #### VD25H #### [facility] [address] [place] [address] MCV Entitic volume (RBC) 87.3 fL Normal 80.0-98.0 [facility] Comment on above: Performed By: #### H EMDF, PT, BMP3M, PHOS3, MG3, CK3 #### [address] #### VD25H #### [place] [address] [place] [address] Monocytes #/vol (Bld) 1.0 10*3/uL High 0.0-0.8 [facility] Comment on above: Performed By: #### H EMDF, PT, BMP3M, PHOS3, MG3, CK3 #### [address] #### VD25H #### [facility] [address] [place] [address] Monocytes/100 WBC (Bld) 9.4 % Normal 2.0-10.0 [facility] Comment on above: Performed By: #### H EMDF, PT, BMP3M, PHOS3, MG3, CK3 #### [address] [place], [place] #### VD25H #### [facility] [address] [place] [address] Platelet mean volume Entitic volume (Bld) 6.9 fL Low 7.4-10.4 [facility] Comment on above: Performed By: #### H EMDF, PT, BMP3M, PHOS3, MG3, CK3 #### [address] [place] #### VD25H #### [facility] [address] [place] [address] Platelets #/vol (Bld) 254 10*3/uL Normal 140-440 [facility] Comment on above: Performed By: #### H EMDF, PT, BMP3M, PHOS3, MG3, CK3 #### [address] #### VD25H #### [place] [address] [place] [address] RBC #/vol (Bld) 3.47 10*6/uL Low 4.40-5.90 [facility] Comment on above: Performed By: #### H EMDF, PT, BMP3M, PHOS3, MG3, CK3 #### [address] #### VD25H #### [facility] [address] [place] [address] WBC #/vol (Bld) 10.5 10*3/uL Normal 3.6-10.7 [facility] Comment on above: Performed By: #### H EMDF, PT, BMP3M, PHOS3, MG3, CK3 #### [address] #### VD25H #### [facility] [address] [place] [address] Arterial Blood Gaseson 07-15 CO2 molar conc 26.7 mmol/L Normal 23.0-27.0 [facility] Comment on above: Performed By: #### H EMDF, PT, BMP3M, PHOS3, MG3, CK3 #### [address] #### VD25H #### [facility] [address] [place] [address] FIO2 50% Normal [facility] Comment on above: Performed By: #### H EMDF, PT, BMP3M, PHOS3, MG3, CK3 #### [address] #### VD25H #### [facility] [address] [place] [address] HCO3 molar conc (Bld) 25.7 mmol/L High 21.0-25.0 [facility] Comment on above: Performed By: #### H EMDF, PT, BMP3M, PHOS3, MG3, CK3 #### [address] #### VD25H #### [facility] [address] [place] [address] Hemoglobin mass conc (Bld) 12.5 g/dL Normal [facility] Comment on above: Performed By: #### H EMDF, PT, BMP3M, PHOS3, MG3, CK3 #### [address] #### VD25H #### [facility] [address] [place] [address] Oxygen ppres (Bld) 90.4 mm[Hg] Normal 80.0-100.0 [facility] Comment on above: Performed By: #### H EMDF, PT, BMP3M, PHOS3, MG3, CK3 #### [address] #### VD25H #### [facility] [address] [place] [address] Oxygen saturation in Blood 96.8 % Normal 95.0-100.0 [facility] Comment on above: Performed By: #### H EMDF, PT, BMP3M, PHOS3, MG3, CK3 #### [place] [address] [place] #### VD25H #### [facility] [address] [place] [address] pCO2 33.4 mm[Hg] Low 35.0-45.0 [facility] Comment on above: Performed By: #### H EMDF, PT, BMP3M, PHOS3, MG3, CK3 #### [address] [place] #### VD25H #### [facility] [address] [place] [address] pH (Bld) 7.504 High 7.350-7.450 [facility] Comment on above: Performed By: #### H EMDF, PT, BMP3M, PHOS3, MG3, CK3 #### [address] #### VD25H #### [facility] [address] [place] [address] Std Base Excess 2.9 mmol/L Normal -3.0-3.0 [facility] Comment on above: Performed By: #### H EMDF, PT, BMP3M, PHOS3, MG3, CK3 #### [address] #### VD25H #### [facility] [address] [place] [address] Basic Metabolic Panelon 06-29 Anion gap molar conc 8 Normal [facility] Comment on above: Performed By: #### H EMDF, PT, BMP3M, PHOS3, MG3, CK3 #### [address] [place] #### VD25H #### [facility] [address] [place] [address] Calcium mass conc 8.6 mg/dL Normal 8.4-10.4 [facility] Comment on above: Performed By: #### H EMDF, PT, BMP3M, PHOS3, MG3, CK3 #### [place] [address] [place] [address] #### VD25H #### [facility] [address] [place] [address] CO2 molar conc 29 mmol/L Normal 22-30 [facility] Comment on above: Performed By: #### H EMDF, PT, BMP3M, PHOS3, MG3, CK3 #### [place] [address] [place] #### VD25H #### [facility] [address] [place] [address] Glucose mass conc 119 mg/dL High 70-100 [facility] Comment on above: Performed By: #### H EMDF, PT, BMP3M, PHOS3, MG3, CK3 #### [address] #### VD25H #### [facility] [address] [place] [address] Urea nitrogen mass conc 23 mg/dL High 7-20 [facility] Comment on above: Performed By: #### H EMDF, PT, BMP3M, PHOS3, MG3, CK3 #### [address] #### VD25H #### [facility] [address] [place] [address] Creatinine mass conc 0.73 mg/dL Normal 0.52-1.25 [facility] Comment on above: Performed By: #### H EMDF, PT, BMP3M, PHOS3, MG3, CK3 #### [address] #### VD25H #### [facility] [address] [place] [address] GFR/1.73 sq M predicted among blacks MDRD vol rate/area (S/P/Bld) mL/min/{1.73_m2} Normal >60 [facility] Comment on above: Performed By: #### H EMDF, PT, BMP3M, PHOS3, MG3, CK3 #### [place] [address] [place] #### VD25H #### [facility] [address] [place] [address] GFR/1.73 sq M predicted among non-blacks MDRD vol rate/area (S/P/Bld) mL/min/{1.73_m2} Normal >60 [facility] Comment on above: Result Comment: Sour ce- MDRD equation with creatinine calibration to IDMS(NKDEP) eGFR not recommended for drug dose adjustment Performed By: #### H EMDF, PT, BMP3M, PHOS3, MG3, CK3 #### [address] #### VD25H #### [facility] [address] [place] [address] Potassium molar conc 4.1 mmol/L Normal 3.5-5.1 [facility] Comment on above: Performed By: #### H EMDF, PT, BMP3M, PHOS3, MG3, CK3 #### [address] #### VD25H #### [facility] [address] [place] [address] Sodium molar conc 144 mmol/L Normal 135-145 [facility] Comment on above: Performed By: #### H EMDF, PT, BMP3M, PHOS3, MG3, CK3 #### [address] #### VD25H #### [facility] [address] [place] [address] Chloride molar conc 107 mmol/L Normal 98-107 [facility] Comment on above: Performed By: #### H EMDF, PT, BMP3M, PHOS3, MG3, CK3 #### [address] #### VD25H #### [facility] [address] [place] [address] CR Abdomen APon 07-15-2018 CR Abdomen AP Patient Name: KATHYA HOOEPR Diagnostic Radiology Exam Date/Time 07/15/2018 09:25:44 EDT Exam CR Abdomen AP Ordering Physician [id number] AGUILERA Accession Number [id number] CPT4 Codes 82296 () Reason For Exam ileus Report EXAMINATION: [...] Transcribed Date and Time: 07/15/2018 10:07 Normal [facility] CR Chest Portableon 07-16-19 19 CR Chest Portable Patient Name: KATHYA HOOPER Diagnostic Radiology Exam Date/Time 07/15/2018 06:00:00 EDT Exam CR Chest Portable Ordering Physician MARIA EUGENIA PEREZ Accession Number [id number] CPT4 Codes 16800 () Reason For Exam ETT placement Report [...] Transcribed Date and Time: 07/15/2018 9:14 Normal [facility] CULT./ST. RESPIRATORYon 06-29 CULT./ST. RESPIRATORY CULT./ST. [...] in clusters. Rare gram negative bacilli. Normal [facility] Comment on above: Order Comment: Speci men Source Comment:Sputum, Suctioned Performed By: #### H EMDF, PT, BMP3M, PHOS3, MG3, CK3 #### [facility] [address] [place], [place] #### VD25H #### [facility] [address] [place] [address] Hemogram w/ Autodiffon 07-15 Abs Baso Cnt 0.0 10*3/uL Normal 0.0-0.2 [facility] Comment on above: Performed By: #### H EMDF, PT, BMP3M, PHOS3, MG3, CK3 #### [facility] [address] [place] #### VD25H #### [facility] [address] [place] [address] Abs Neutrophile Cnt 13.2 10*3/uL High 1.8-7.0 [facility] Comment on above: Performed By: #### H EMDF, PT, BMP3M, PHOS3, MG3, CK3 #### [facility] [address] [place] #### VD25H #### [facility] [address] [place] [address] Basophils/100 WBC (Bld) 0.2 % Normal 0.0-2.0 [facility] Comment on above: Performed By: #### H EMDF, PT, BMP3M, PHOS3, MG3, CK3 #### [address] #### VD25H #### [facility] [address] [place] [address] Eosinophils #/vol (Bld) 0.0 10*3/uL Normal 0.0-0.5 [facility] Comment on above: Performed By: #### H EMDF, PT, BMP3M, PHOS3, MG3, CK3 #### [address] #### VD25H #### [facility] [address] [place] [address] Eosinophils/100 WBC (Bld) 0.1 % Low 1.0-6.0 [facility] Comment on above: Performed By: #### H EMDF, PT, BMP3M, PHOS3, MG3, CK3 #### [address] #### VD25H #### [facility] [address] [place] [address] Erythrocyte distribution width Ratio (RBC) 13.9 % Normal 11.5-14.5 [facility] Comment on above: Performed By: #### H EMDF, PT, BMP3M, PHOS3, MG3, CK3 #### [address] #### VD25H #### [facility] [address] [place] [address] Granulocytes/100 WBC (Bld) 88.1 % High 40.0-80.0 [facility] Comment on above: Performed By: #### H EMDF, PT, BMP3M, PHOS3, MG3, CK3 #### [address] #### VD25H #### [facility] [address] [place] [address] Hematocrit Volume Fraction (Bld) 35.3 % Low 40.0-52.0 [facility] Comment on above: Performed By: #### H EMDF, PT, BMP3M, PHOS3, MG3, CK3 #### [place] [address] [place] #### VD25H #### [facility] [address] [place] [address] Hemoglobin mass conc (Bld) 11.9 g/dL Low 13.0-18.0 [facility] Comment on above: Performed By: #### H EMDF, PT, BMP3M, PHOS3, MG3, CK3 #### [place] [address] [place] #### VD25H #### [facility] [address] [place] [address] Lymphocytes #/vol (Bld) 0.8 10*3/uL Low 1.0-4.3 [facility] Comment on above: Performed By: #### H EMDF, PT, BMP3M, PHOS3, MG3, CK3 #### [place] [address] [place] #### VD25H #### [facility] [address] [place] [address] Lymphocytes/100 WBC (Bld) 5.0 % Low 20.0-40.0 [facility] Comment on above: Performed By: #### H EMDF, PT, BMP3M, PHOS3, MG3, CK3 #### [place] [address] [place] #### VD25H #### [facility] [address] [place] [address] MCH Entitic mass (RBC) 29.5 pg Normal 26.0-34.0 [facility] Comment on above: Performed By: #### H EMDF, PT, BMP3M, PHOS3, MG3, CK3 #### [address] #### VD25H #### [facility] [address] [place] [address] MCHC mass conc (RBC) 33.8 % Normal 32.0-36.0 [facility] Comment on above: Performed By: #### H EMDF, PT, BMP3M, PHOS3, MG3, CK3 #### [address] #### VD25H #### [facility] [address] [place] [address] MCV Entitic volume (RBC) 87.2 fL Normal 80.0-98.0 [facility] Comment on above: Performed By: #### H EMDF, PT, BMP3M, PHOS3, MG3, CK3 #### [address] #### VD25H #### [place] [address] [place] [address] Monocytes #/vol (Bld) 1.0 10*3/uL High 0.0-0.8 [facility] Comment on above: Performed By: #### H EMDF, PT, BMP3M, PHOS3, MG3, CK3 #### [address] #### VD25H #### [place] [address] [place] [address] Monocytes/100 WBC (Bld) 6.6 % Normal 2.0-10.0 [facility] Comment on above: Performed By: #### H EMDF, PT, BMP3M, PHOS3, MG3, CK3 #### [address] #### VD25H #### [facility] [address] [place] [address] Platelet mean volume Entitic volume (Bld) 7.9 fL Normal 7.4-10.4 [facility] Comment on above: Performed By: #### H EMDF, PT, BMP3M, PHOS3, MG3, CK3 #### [place] [address] [place] #### VD25H #### [facility] [address] [place] [address] Platelets #/vol (Bld) 319 10*3/uL Normal 140-440 [facility] Comment on above: Performed By: #### H EMDF, PT, BMP3M, PHOS3, MG3, CK3 #### [place] [address] [place] #### VD25H #### [facility] [address] [place] [address] RBC #/vol (Bld) 4.05 10*6/uL Low 4.40-5.90 [facility] Comment on above: Performed By: #### H EMDF, PT, BMP3M, PHOS3, MG3, CK3 #### [place] [address] [place] #### VD25H #### [place] [address] [place] [address] WBC #/vol (Bld) 15.0 10*3/uL High 3.6-10.7 [facility] Comment on above: Performed By: #### H EMDF, PT, BMP3M, PHOS3, MG3, CK3 #### [place] [address] [place] #### VD25H #### [facility] [address] [place] [address] Basic Metabolic Panelon 03-1 Anion gap molar conc 9 Normal [facility] Comment on above: Performed By: #### H EMDF, PT, BMP3M, PHOS3, MG3, CK3 #### [address] [place] #### VD25H #### [facility] [address] [place] [address] Calcium mass conc 7.6 mg/dL Low 8.4-10.4 [facility] Comment on above: Performed By: #### H EMDF, PT, BMP3M, PHOS3, MG3, CK3 #### [facility] [address] [facility], [place] #### VD25H #### [facility] [address] [place] [address] CO2 molar conc 26 mmol/L Normal 22-30 [facility] Comment on above: Performed By: #### H EMDF, PT, BMP3M, PHOS3, MG3, CK3 #### [place] [address] [place] #### VD25H #### [facility] [address] [place] [address] Glucose mass conc 148 mg/dL High 70-100 [facility] Comment on above: Performed By: #### H EMDF, PT, BMP3M, PHOS3, MG3, CK3 #### [place] [address] [facility] [place] #### VD25H #### [facility] [address] [place] [address] Urea nitrogen mass conc 16 mg/dL Normal 7-20 [facility] Comment on above: Performed By: #### H EMDF, PT, BMP3M, PHOS3, MG3, CK3 #### [place] [address] [address] [place], [place] #### VD25H #### [facility] [address] [place] [address] Creatinine mass conc 0.62 mg/dL Normal 0.52-1.25 [facility] Comment on above: Performed By: #### H EMDF, PT, BMP3M, PHOS3, MG3, CK3 #### [place] [address] [facility], [place] #### VD25H #### [facility] [address] [place] [address] GFR/1.73 sq M predicted among blacks MDRD vol rate/area (S/P/Bld) mL/min/{1.73_m2} Normal >60 [facility] Comment on above: Performed By: #### H EMDF, PT, BMP3M, PHOS3, MG3, CK3 #### [address] [place], [place] #### VD25H #### [facility] [address] [place] [address] GFR/1.73 sq M predicted among non-blacks MDRD vol rate/area (S/P/Bld) mL/min/{1.73_m2} Normal >60 [facility] Comment on above: Result Comment: Sour ce- MDRD equation with creatinine calibration to IDMS(NKDEP) eGFR not recommended for drug dose adjustment Performed By: #### H EMDF, PT, BMP3M, PHOS3, MG3, CK3 #### [address] #### VD25H #### [facility] [address] [place] [address] Potassium molar conc 4.5 mmol/L Normal 3.5-5.1 [facility] Comment on above: Performed By: #### H EMDF, PT, BMP3M, PHOS3, MG3, CK3 #### [address] #### VD25H #### [facility] [address] [place] [address] Sodium molar conc 137 mmol/L Normal 135-145 [facility] Comment on above: Performed By: #### H EMDF, PT, BMP3M, PHOS3, MG3, CK3 #### [address], [place] #### VD25H #### [facility] [address] [place] [address] Chloride molar conc 103 mmol/L Normal 98-107 [facility] Comment on above: Performed By: #### H EMDF, PT, BMP3M, PHOS3, MG3, CK3 #### [address] #### VD25H #### [facility] [address] [place] [address] CR Abdomen APon 07-14-2018 CR Abdomen AP Patient Name: KATHYA HOOPER Diagnostic Radiology Exam Date/Time 07/14/2018 19:15:43 EDT Exam CR Abdomen AP Ordering Physician JOYA ROJAS Accession Number [id number] CPT4 Codes 77281 () Reason For Exam Distended with emesis [...] Transcribed Date and Time: 07/14/2018 7:28 Normal [facility] CR Chest Portableon 07-15-19 19 CR Chest Portable Patient Name: KATHYA HOOPER Diagnostic Radiology Exam Date/Time 07/14/2018 06:53:29 EDT Exam CR Chest Portable Ordering Physician MARIA EUGENIA PEREZ Accession Number [id number] CPT4 Codes 17901 () Reason For Exam ETT placement Report [...] Transcribed Date and Time: 07/14/2018 11:51 Normal [facility] Hemogram w/ Autodiffon 07-14 Abs Baso Cnt 0.0 10*3/uL Normal 0.0-0.2 [facility] Comment on above: Performed By: #### H EMDF, PT, BMP3M, PHOS3, MG3, CK3 #### [address] #### VD25H #### [facility] [address] [place] [address] Abs Neutrophile Cnt 11.7 10*3/uL High 1.8-7.0 [facility] Comment on above: Performed By: #### H EMDF, PT, BMP3M, PHOS3, MG3, CK3 #### [address] #### VD25H #### [facility] [address] [place] [address] Basophils/100 WBC (Bld) 0.3 % Normal 0.0-2.0 [facility] Comment on above: Performed By: #### H EMDF, PT, BMP3M, PHOS3, MG3, CK3 #### [address] #### VD25H #### [facility] [address] [place] [address] Eosinophils #/vol (Bld) 0.0 10*3/uL Normal 0.0-0.5 [facility] Comment on above: Performed By: #### H EMDF, PT, BMP3M, PHOS3, MG3, CK3 #### [place] [address] [place], [place] #### VD25H #### [facility] [address] [place] [address] Eosinophils/100 WBC (Bld) 0.1 % Low 1.0-6.0 [facility] Comment on above: Performed By: #### H EMDF, PT, BMP3M, PHOS3, MG3, CK3 #### [address] #### [id number] #### [facility] [address] [place] [address] Erythrocyte distribution width Ratio (RBC) 13.8 % Normal 11.5-14.5 [facility] Comment on above: Performed By: #### H EMDF, PT, BMP3M, PHOS3, MG3, CK3 #### [address] #### [id number] #### [facility] [address] [place] [address] Granulocytes/100 WBC (Bld) 89.1 % High 40.0-80.0 [facility] Comment on above: Performed By: #### H EMDF, PT, BMP3M, PHOS3, MG3, CK3 #### [address] #### VD25H #### [facility] [address] [place] [address] Hematocrit Volume Fraction (Bld) 33.8 % Low 40.0-52.0 [facility] Comment on above: Performed By: #### H EMDF, PT, BMP3M, PHOS3, MG3, CK3 #### [address] #### VD25H #### [facility] [address] [place] [address] Hemoglobin mass conc (Bld) 11.5 g/dL Low 13.0-18.0 [facility] Comment on above: Performed By: #### H EMDF, PT, BMP3M, PHOS3, MG3, CK3 #### [facility] [address] [place], [place] #### VD25H #### [facility] [address] [place] [address] Lymphocytes #/vol (Bld) 0.6 10*3/uL Low 1.0-4.3 [facility] Comment on above: Performed By: #### H EMDF, PT, BMP3M, PHOS3, MG3, CK3 #### [place] [address] [place], [place] #### VD25H #### [facility] [address] [place] [address] Lymphocytes/100 WBC (Bld) 4.5 % Low 20.0-40.0 [facility] Comment on above: Performed By: #### H EMDF, PT, BMP3M, PHOS3, MG3, CK3 #### [address] #### VD25H #### [facility] [address] [place] [address] MCH Entitic mass (RBC) 29.6 pg Normal 26.0-34.0 [facility] Comment on above: Performed By: #### H EMDF, PT, BMP3M, PHOS3, MG3, CK3 #### [address] #### VD25H #### [facility] [address] [place] [address] MCHC mass conc (RBC) 33.9 % Normal 32.0-36.0 [facility] Comment on above: Performed By: #### H EMDF, PT, BMP3M, PHOS3, MG3, CK3 #### [address] #### VD25H #### [facility] [address] [place] [address] MCV Entitic volume (RBC) 87.3 fL Normal 80.0-98.0 [facility] Comment on above: Performed By: #### H EMDF, PT, BMP3M, PHOS3, MG3, CK3 #### [address] #### VD25H #### [facility] [address] [place] [address] Monocytes #/vol (Bld) 0.8 10*3/uL Normal 0.0-0.8 [facility] Comment on above: Performed By: #### H EMDF, PT, BMP3M, PHOS3, MG3, CK3 #### [address] #### VD25H #### [facility] [address] [place] [address] Monocytes/100 WBC (Bld) 6.0 % Normal 2.0-10.0 [facility] Comment on above: Performed By: #### H EMDF, PT, BMP3M, PHOS3, MG3, CK3 #### [address] #### VD25H #### [facility] [address] [place] [address] Platelet mean volume Entitic volume (Bld) 8.1 fL Normal 7.4-10.4 [facility] Comment on above: Performed By: #### H EMDF, PT, BMP3M, PHOS3, MG3, CK3 #### [address] #### VD25H #### [facility] [address] [place] [address] Platelets #/vol (Bld) 196 10*3/uL Normal 140-440 [facility] Comment on above: Performed By: #### H EMDF, PT, BMP3M, PHOS3, MG3, CK3 #### [address] #### VD25H #### [facility] [address] [place] [address] RBC #/vol (Bld) 3.87 10*6/uL Low 4.40-5.90 [facility] Comment on above: Performed By: #### H EMDF, PT, BMP3M, PHOS3, MG3, CK3 #### [place] [place] #### VD25H #### [facility] [address] [place] [address] WBC #/vol (Bld) 13.2 10*3/uL High 3.6-10.7 [facility] Comment on above: Performed By: #### H EMDF, PT, BMP3M, PHOS3, MG3, CK3 #### [place] [address] [address] [place] #### VD25H #### [facility] [address] [place] [address] Add on test from HISon 07-13 Add on test from HIS Rejected Normal [facility] Comment on above: Result Comment: No s pecimen available for addon. Performed By: #### H EMDF, PT, BMP3M, PHOS3, MG3, CK3 #### [address] [address] [place] #### VD25H #### [facility] [address] [place] [address] Arterial Blood Gaseson 07-13 CO2 molar conc 25.6 mmol/L Normal 23.0-27.0 [facility] Comment on above: Performed By: #### H EMDF, PT, BMP3M, PHOS3, MG3, CK3 #### [place] [address] [address] [place] #### VD25H #### [facility] [address] [place] [address] HCO3 molar conc (Bld) 24.5 mmol/L Normal 21.0-25.0 [facility] Comment on above: Performed By: #### H EMDF, PT, BMP3M, PHOS3, MG3, CK3 #### [place] [address] [address] [place] #### VD25H #### [facility] [address] [place] [address] Hemoglobin mass conc (Bld) 9.7 g/dL Normal ScreenOnly [facility] Comment on above: Performed By: #### H EMDF, PT, BMP3M, PHOS3, MG3, CK3 #### [place] [address] [place] #### VD25H #### [facility] [address] [place] [address] Oxygen ppres (Bld) 99.9 mm[Hg] Normal 80.0-100.0 [facility] Comment on above: Performed By: #### H EMDF, PT, BMP3M, PHOS3, MG3, CK3 #### [address] [place] #### VD25H #### [place] [address] [place] [address] Oxygen saturation in Blood 97.5 % Normal 95.0-100.0 [facility] Comment on above: Performed By: #### H EMDF, PT, BMP3M, PHOS3, MG3, CK3 #### [address] [place] #### VD25H #### [facility] [address] [place] [address] pCO2 36.0 mm[Hg] Normal 35.0-45.0 [facility] Comment on above: Performed By: #### H EMDF, PT, BMP3M, PHOS3, MG3, CK3 #### [address] [place] #### VD25H #### [facility] [address] [place] [address] pH (Bld) 7.450 Normal 7.350-7.450 [facility] Comment on above: Performed By: #### H EMDF, PT, BMP3M, PHOS3, MG3, CK3 #### [address] #### VD25H #### [facility] [address] [place] [address] Std Base Excess 0.6 mmol/L Normal -3.0-3.0 [facility] Comment on above: Performed By: #### H EMDF, PT, BMP3M, PHOS3, MG3, CK3 #### [address] [place] #### VD25H #### [facility] [address] [place] [address] FIO2 .50 Normal [facility] Comment on above: Performed By: #### H EMDF, PT, BMP3M, PHOS3, MG3, CK3 #### [address] #### VD25H #### [place] [address] [place] [address] Basic Metabolic Panelon - Calcium mass conc 7.6 mg/dL Low 8.4-10.4 [facility] Comment on above: Performed By: #### H EMDF, PT, BMP3M, PHOS3, MG3, CK3 #### [address] #### VD25H #### [facility] [address] [place] [address] Glucose mass conc 120 mg/dL High 70-100 [facility] Comment on above: Performed By: #### H EMDF, PT, BMP3M, PHOS3, MG3, CK3 #### [address] #### VD25H #### [facility] [address] [place] [address] Anion gap molar conc 7 Normal [facility] Comment on above: Performed By: #### H EMDF, PT, BMP3M, PHOS3, MG3, CK3 #### [address] #### VD25H #### [facility] [address] [place] [address] CO2 molar conc 27 mmol/L Normal 22-30 [facility] Comment on above: Performed By: #### H EMDF, PT, BMP3M, PHOS3, MG3, CK3 #### [address] #### VD25H #### [facility] [address] [place] [address] Creatinine mass conc 0.62 mg/dL Normal 0.52-1.25 [facility] Comment on above: Performed By: #### H EMDF, PT, BMP3M, PHOS3, MG3, CK3 #### [address] #### VD25H #### [facility] [address] [place] [address] GFR/1.73 sq M predicted among blacks MDRD vol rate/area (S/P/Bld) mL/min/{1.73_m2} Normal >60 [facility] Comment on above: Performed By: #### H EMDF, PT, BMP3M, PHOS3, MG3, CK3 #### [address] #### VD25H #### [facility] [address] [place] [address] GFR/1.73 sq M predicted among non-blacks MDRD vol rate/area (S/P/Bld) mL/min/{1.73_m2} Normal >60 [facility] Comment on above: Result Comment: Sour ce- MDRD equation with creatinine calibration to IDMS(NKDEP) eGFR not recommended for drug dose adjustment Performed By: #### H EMDF, PT, BMP3M, PHOS3, MG3, CK3 #### [address] #### VD25H #### [facility] [address] [place] [address] Urea nitrogen mass conc 17 mg/dL Normal 7-20 [facility] Comment on above: Performed By: #### H EMDF, PT, BMP3M, PHOS3, MG3, CK3 #### [facility] [address] [place] [address] #### VD25H #### [facility] [address] [place] [address] Chloride molar conc 105 mmol/L Normal 98-107 [facility] Comment on above: Performed By: #### H EMDF, PT, BMP3M, PHOS3, MG3, CK3 #### [facility] [address] [place] [address] #### VD25H #### [facility] [address] [place] [address] Potassium molar conc 3.8 mmol/L Normal 3.5-5.1 [facility] Comment on above: Performed By: #### H EMDF, PT, BMP3M, PHOS3, MG3, CK3 #### [place] [address] [place] #### VD25H #### [facility] [address] [place] [address] Sodium molar conc 139 mmol/L Normal 135-145 [facility] Comment on above: Performed By: #### H EMDF, PT, BMP3M, PHOS3, MG3, CK3 #### [place] [address] [place] #### VD25H #### [facility] [address] [place] [address] CR Chest Portableon 07-14-19 19 CR Chest Portable Patient Name: KATHYA HOOPER Diagnostic Radiology Exam Date/Time 07/13/2018 06:05:45 EDT Exam CR Chest Portable Ordering Physician MARIA EUGENIA PEREZ Accession Number [id number] CPT4 Codes 99971 () Reason For Exam ETT placement Report [...] Transcribed Date and Time: 07/13/2018 6:33 Normal [facility] Calcium,Ionizedon 07-13-2018 Ionized Ca,Measured 4.10 mg/dL Low 4.30-5.20 [facility] Comment on above: Performed By: #### H EMDF, PT, BMP3M, PHOS3, MG3, CK3 #### [address] #### VD25H #### [facility] [address] [place] [address] pH, Ionized Calcium 7.40 Normal 7.31-7.46 [facility] Comment on above: Performed By: #### H EMDF, PT, BMP3M, PHOS3, MG3, CK3 #### [address] #### VD25H #### [facility] [address] [place] [address] Hemogram w/ Autodiffon 07-13 Abs Baso Cnt 0.0 10*3/uL Normal 0.0-0.2 [facility] Comment on above: Performed By: #### H EMDF, PT, BMP3M, PHOS3, MG3, CK3 #### [address] #### VD25H #### [place] [address] [place] [address] Abs Neutrophile Cnt 11.2 10*3/uL High 1.8-7.0 [facility] Comment on above: Performed By: #### H EMDF, PT, BMP3M, PHOS3, MG3, CK3 #### [address] #### VD25H #### [facility] [address] [place] [address] Basophils/100 WBC (Bld) 0.3 % Normal 0.0-2.0 [facility] Comment on above: Performed By: #### H EMDF, PT, BMP3M, PHOS3, MG3, CK3 #### [address] #### VD25H #### [place] [address] [place] [address] Eosinophils #/vol (Bld) 0.2 10*3/uL Normal 0.0-0.5 [facility] Comment on above: Performed By: #### H EMDF, PT, BMP3M, PHOS3, MG3, CK3 #### [address] #### VD25H #### [place] [address] [place] [address] Eosinophils/100 WBC (Bld) 1.1 % Normal 1.0-6.0 [facility] Comment on above: Performed By: #### H EMDF, PT, BMP3M, PHOS3, MG3, CK3 #### [address] #### VD25H #### [place] [address] [place] [address] Erythrocyte distribution width Ratio (RBC) 13.9 % Normal 11.5-14.5 [facility] Comment on above: Performed By: #### H EMDF, PT, BMP3M, PHOS3, MG3, CK3 #### [address] [place] #### VD25H #### [facility] [address] [place] [address] Granulocytes/100 WBC (Bld) 82.2 % High 40.0-80.0 [facility] Comment on above: Performed By: #### H EMDF, PT, BMP3M, PHOS3, MG3, CK3 #### [place] [place] #### VD25H #### [facility] [address] [place] [address] Hematocrit Volume Fraction (Bld) 36.7 % Low 40.0-52.0 [facility] Comment on above: Performed By: #### H EMDF, PT, BMP3M, PHOS3, MG3, CK3 #### [address] #### VD25H #### [facility] [address] [place] [address] Hemoglobin mass conc (Bld) 12.6 g/dL Low 13.0-18.0 [facility] Comment on above: Performed By: #### H EMDF, PT, BMP3M, PHOS3, MG3, CK3 #### [place] [place] #### VD25H #### [facility] [address] [place] [address] Lymphocytes #/vol (Bld) 1.1 10*3/uL Normal 1.0-4.3 [facility] Comment on above: Performed By: #### H EMDF, PT, BMP3M, PHOS3, MG3, CK3 #### [address] #### VD25H #### [facility] [address] [place] [address] Lymphocytes/100 WBC (Bld) 8.2 % Low 20.0-40.0 [facility] Comment on above: Performed By: #### H EMDF, PT, BMP3M, PHOS3, MG3, CK3 #### [place] [address] [place] #### VD25H #### [facility] [address] [place] [address] MCH Entitic mass (RBC) 29.6 pg Normal 26.0-34.0 [facility] Comment on above: Performed By: #### H EMDF, PT, BMP3M, PHOS3, MG3, CK3 #### [place] [place] #### VD25H #### [facility] [address] [place] [address] MCHC mass conc (RBC) 34.4 % Normal 32.0-36.0 [facility] Comment on above: Performed By: #### H EMDF, PT, BMP3M, PHOS3, MG3, CK3 #### [address] #### VD25H #### [facility] [address] [place] [address] MCV Entitic volume (RBC) 86.2 fL Normal 80.0-98.0 [facility] Comment on above: Performed By: #### H EMDF, PT, BMP3M, PHOS3, MG3, CK3 #### [address] #### VD25H #### [facility] [address] [place] [address] Monocytes #/vol (Bld) 1.1 10*3/uL High 0.0-0.8 [facility] Comment on above: Performed By: #### H EMDF, PT, BMP3M, PHOS3, MG3, CK3 #### [address] #### VD25H #### [facility] [address] [place] [address] Monocytes/100 WBC (Bld) 8.2 % Normal 2.0-10.0 [facility] Comment on above: Performed By: #### H EMDF, PT, BMP3M, PHOS3, MG3, CK3 #### [address] [place] #### VD25H #### [facility] [address] [place] [address] Platelet mean volume Entitic volume (Bld) 8.1 fL Normal 7.4-10.4 [facility] Comment on above: Performed By: #### H EMDF, PT, BMP3M, PHOS3, MG3, CK3 #### [address] [place] #### VD25H #### [facility] [address] [place] [address] Platelets #/vol (Bld) 194 10*3/uL Normal 140-440 [facility] Comment on above: Performed By: #### H EMDF, PT, BMP3M, PHOS3, MG3, CK3 #### [address] #### VD25H #### [facility] [address] [place] [address] RBC #/vol (Bld) 4.26 10*6/uL Low 4.40-5.90 [facility] Comment on above: Performed By: #### H EMDF, PT, BMP3M, PHOS3, MG3, CK3 #### [address] #### VD25H #### [facility] [address] [place] [address] WBC #/vol (Bld) 13.7 10*3/uL High 3.6-10.7 [facility] Comment on above: Performed By: #### H EMDF, PT, BMP3M, PHOS3, MG3, CK3 #### [address] #### VD25H #### [facility] [address] [place] [address] Arterial Blood Gaseson 07-12 CO2 molar conc 26.4 mmol/L Normal 23.0-27.0 [facility] Comment on above: Performed By: #### H EMDF, PT, BMP3M, PHOS3, MG3, CK3 #### [address] #### VD25H #### [facility] [address] [place] [address] HCO3 molar conc (Bld) 25.2 mmol/L High 21.0-25.0 [facility] Comment on above: Performed By: #### H EMDF, PT, BMP3M, PHOS3, MG3, CK3 #### [address] #### VD25H #### [address] [address] Hemoglobin mass conc (Bld) 13.9 g/dL Normal [facility]Only [facility] Comment on above: Performed By: #### H EMDF, PT, BMP3M, PHOS3, MG3, CK3 #### [address] #### VD25H #### [facility] [address] [place] [address] Oxygen ppres (Bld) 83.9 mm[Hg] Normal 80.0-100.0 [facility] Comment on above: Performed By: #### H EMDF, PT, BMP3M, PHOS3, MG3, CK3 #### [address] #### VD25H #### [place] [address] [place] [address] Oxygen saturation in Blood 96.3 % Normal 95.0-100.0 [facility] Comment on above: Performed By: #### H EMDF, PT, BMP3M, PHOS3, MG3, CK3 #### [address] #### VD25H #### [place] [address] [place] [address] pCO2 38.2 mm[Hg] Normal 35.0-45.0 [facility] Comment on above: Performed By: #### H EMDF, PT, BMP3M, PHOS3, MG3, CK3 #### [facility] [address] [place] #### VD25H #### [facility] [address] [place] [address] pH (Bld) 7.437 Normal 7.350-7.450 [facility] Comment on above: Performed By: #### H EMDF, PT, BMP3M, PHOS3, MG3, CK3 #### [address] #### VD25H #### [facility] [address] [place] [address] Std Base Excess 1.1 mmol/L Normal -3.0-3.0 [facility] Comment on above: Performed By: #### H EMDF, PT, BMP3M, PHOS3, MG3, CK3 #### [address] #### VD25H #### [facility] [address] [place] [address] FIO2 50% Normal [facility] Comment on above: Performed By: #### H EMDF, PT, BMP3M, PHOS3, MG3, CK3 #### [place] [address] [place] #### VD25H #### [facility] [address] [place] [address] CO2 molar conc 27.2 mmol/L High 23.0-27.0 [facility] Comment on above: Performed By: #### H EMDF, PT, BMP3M, PHOS3, MG3, CK3 #### [address] #### VD25H #### [facility] [address] [place] [address] HCO3 molar conc (Bld) 26.1 mmol/L High 21.0-25.0 [facility] Comment on above: Performed By: #### H EMDF, PT, BMP3M, PHOS3, MG3, CK3 #### [facility] [address] [place] #### VD25H #### [facility] [address] [place] [address] Hemoglobin mass conc (Bld) 14.7 g/dL Normal [facility]Only [facility] Comment on above: Performed By: #### H EMDF, PT, BMP3M, PHOS3, MG3, CK3 #### [address] [address] [place] #### VD25H #### [facility] [address] [place] [address] Oxygen ppres (Bld) 125.7 mm[Hg] High 80.0-100.0 [facility] Comment on above: Performed By: #### H EMDF, PT, BMP3M, PHOS3, MG3, CK3 #### [place] [place] #### VD25H #### [facility] [address] [place] [address] Oxygen saturation in Blood 98.6 % Normal 95.0-100.0 [facility] Comment on above: Performed By: #### H EMDF, PT, BMP3M, PHOS3, MG3, CK3 #### [place] [place] #### VD25H #### [facility] [address] [place] [address] pCO2 37.5 mm[Hg] Normal 35.0-45.0 [facility] Comment on above: Performed By: #### H EMDF, PT, BMP3M, PHOS3, MG3, CK3 #### [place] [address] [place] #### VD25H #### [facility] [address] [place] [address] pH (Bld) 7.460 High 7.350-7.450 [facility] Comment on above: Performed By: #### H EMDF, PT, BMP3M, PHOS3, MG3, CK3 #### [facility] [address] [place] #### VD25H #### [facility] [address] [place] [address] Std Base Excess 2.4 mmol/L Normal -3.0-3.0 [facility] Comment on above: Performed By: #### H EMDF, PT, BMP3M, PHOS3, MG3, CK3 #### [place] [address] [place] #### VD25H #### [facility] [address] [place] [address] FIO2 62.5 Normal [facility] Comment on above: Performed By: #### H EMDF, PT, BMP3M, PHOS3, MG3, CK3 #### [facility] [address] [place] #### VD25H #### [facility] [address] [place] [address] Basic Metabolic Panelon 06-29 Anion gap molar conc 6 Normal [facility] Comment on above: Performed By: #### H EMDF, PT, BMP3M, PHOS3, MG3, CK3 #### [place] [address] [place] #### VD25H #### [facility] [address] [place] [address] Calcium mass conc 8.0 mg/dL Low 8.4-10.4 [facility] Comment on above: Performed By: #### H EMDF, PT, BMP3M, PHOS3, MG3, CK3 #### [facility] [address] [place] #### VD25H #### [facility] [address] [place] [address] CO2 molar conc 28 mmol/L Normal 22-30 [facility] Comment on above: Performed By: #### H EMDF, PT, BMP3M, PHOS3, MG3, CK3 #### [facility] [address] [place] [address] #### VD25H #### [facility] [address] [place] [address] Creatinine mass conc 0.62 mg/dL Normal 0.52-1.25 [facility] Comment on above: Performed By: #### H EMDF, PT, BMP3M, PHOS3, MG3, CK3 #### [address] [place] [address] #### VD25H #### [facility] [address] [place] [address] GFR/1.73 sq M predicted among blacks MDRD vol rate/area (S/P/Bld) mL/min/{1.73_m2} Normal >60 [facility] Comment on above: Performed By: #### H EMDF, PT, BMP3M, PHOS3, MG3, CK3 #### [address] [address] #### VD25H #### [facility] [address] [place] [address] GFR/1.73 sq M predicted among non-blacks MDRD vol rate/area (S/P/Bld) mL/min/{1.73_m2} Normal >60 [facility] Comment on above: Result Comment: Sour ce- MDRD equation with creatinine calibration to IDMS(NKDEP) eGFR not recommended for drug dose adjustment Performed By: #### H EMDF, PT, BMP3M, PHOS3, MG3, CK3 #### [address] [place] [address] #### VD25H #### [facility] [address] [place] [address] Glucose mass conc 125 mg/dL High 70-100 [facility] Comment on above: Performed By: #### H EMDF, PT, BMP3M, PHOS3, MG3, CK3 #### [place] [place] [address] #### VD25H #### [facility] [address] [place] [address] Urea nitrogen mass conc 12 mg/dL Normal 7-20 [facility] Comment on above: Performed By: #### H EMDF, PT, BMP3M, PHOS3, MG3, CK3 #### [facility] [address] [facility], [place] #### VD25H #### [facility] [address] [place] [address] Chloride molar conc 104 mmol/L Normal 98-107 [facility] Comment on above: Performed By: #### H EMDF, PT, BMP3M, PHOS3, MG3, CK3 #### [place] [address] [address] [facility], [place] #### VD25H #### [facility] [address] [place] [address] Potassium molar conc 3.6 mmol/L Normal 3.5-5.1 [facility] Comment on above: Performed By: #### H EMDF, PT, BMP3M, PHOS3, MG3, CK3 #### [facility] [address] [facility], [place] #### VD25H #### [facility] [address] [place] [address] Sodium molar conc 138 mmol/L Normal 135-145 [facility] Comment on above: Performed By: #### H EMDF, PT, BMP3M, PHOS3, MG3, CK3 #### [place] [address] [address] [facility], [place] #### VD25H #### [facility] [address] [place] [address] CR Chest Portableon 07-13-19 19 CR Chest Portable Patient Name: KATHYA HOOPER Diagnostic Radiology Exam Date/Time 07/12/2018 10:18:11 EDT Exam CR Chest Portable Ordering Physician MARIA EUGENIA PEREZ Accession Number [id number] CPT4 Codes 88288 () Reason For Exam ETT Placement Report [...] Transcribed Date and Time: 07/12/2018 1:21 Normal [facility] CR Chest Portable Patient Name: KATHYA HOOPER Diagnostic Radiology Exam Date/Time 07/12/2018 06:19:03 EDT Exam CR Chest Portable Ordering Physician MD NATE, [facility] Accession Number [id number] CPT4 Codes 39377 () Reason For Exam dyspnea Report PORTABLE [...] Transcribed Date and Time: 07/12/2018 8:01 Normal [facility] Hemogram w/ Autodiffon 07-12 Abs Baso Cnt 0.0 10*3/uL Normal 0.0-0.2 [facility] Comment on above: Performed By: #### H EMDF, PT, BMP3M, PHOS3, MG3, CK3 #### [address] #### VD25H #### [facility] [address] [place] [address] Abs Neutrophile Cnt 10.2 10*3/uL High 1.8-7.0 [facility] Comment on above: Performed By: #### H EMDF, PT, BMP3M, PHOS3, MG3, CK3 #### [address] #### [id number] #### [facility] [address] [place] [address] Basophils/100 WBC (Bld) 0.4 % Normal 0.0-2.0 [facility] Comment on above: Performed By: #### H EMDF, PT, BMP3M, PHOS3, MG3, CK3 #### [address] #### [id number] #### [facility] [address] [place] [address] Eosinophils #/vol (Bld) 0.1 10*3/uL Normal 0.0-0.5 [facility] Comment on above: Performed By: #### H EMDF, PT, BMP3M, PHOS3, MG3, CK3 #### [address] #### VD25H #### [facility] [address] [place] [address] Eosinophils/100 WBC (Bld) 0.6 % Low 1.0-6.0 [facility] Comment on above: Performed By: #### H EMDF, PT, BMP3M, PHOS3, MG3, CK3 #### [address] #### VD25H #### [place] [address] [place] [address] Erythrocyte distribution width Ratio (RBC) 13.5 % Normal 11.5-14.5 [facility] Comment on above: Performed By: #### H EMDF, PT, BMP3M, PHOS3, MG3, CK3 #### [address] #### VD25H #### [facility] [address] [place] [address] Granulocytes/100 WBC (Bld) 84.7 % High 40.0-80.0 [facility] Comment on above: Performed By: #### H EMDF, PT, BMP3M, PHOS3, MG3, CK3 #### [address] #### VD25H #### [facility] [address] [place] [address] Hematocrit Volume Fraction (Bld) 39.7 % Low 40.0-52.0 [facility] Comment on above: Performed By: #### H EMDF, PT, BMP3M, PHOS3, MG3, CK3 #### [address] #### VD25H #### [place] [address] [place] [address] Hemoglobin mass conc (Bld) 13.5 g/dL Normal 13.0-18.0 [facility] Comment on above: Performed By: #### H EMDF, PT, BMP3M, PHOS3, MG3, CK3 #### [address] #### VD25H #### [facility] [address] [place] [address] Lymphocytes #/vol (Bld) 0.9 10*3/uL Low 1.0-4.3 [facility] Comment on above: Performed By: #### H EMDF, PT, BMP3M, PHOS3, MG3, CK3 #### [address] #### VD25H #### [place] [address] [place] [address] Lymphocytes/100 WBC (Bld) 7.6 % Low 20.0-40.0 [facility] Comment on above: Performed By: #### H EMDF, PT, BMP3M, PHOS3, MG3, CK3 #### [address] #### VD25H #### [place] [address] [place] [address] MCH Entitic mass (RBC) 29.6 pg Normal 26.0-34.0 [facility] Comment on above: Performed By: #### H EMDF, PT, BMP3M, PHOS3, MG3, CK3 #### [address] #### VD25H #### [place] [address] [place] [address] MCHC mass conc (RBC) 34.1 % Normal 32.0-36.0 [facility] Comment on above: Performed By: #### H EMDF, PT, BMP3M, PHOS3, MG3, CK3 #### [address] #### VD25H #### [facility] [address] [place] [address] MCV Entitic volume (RBC) 87.0 fL Normal 80.0-98.0 [facility] Comment on above: Performed By: #### H EMDF, PT, BMP3M, PHOS3, MG3, CK3 #### [address] #### VD25H #### [facility] [address] [place] [address] Monocytes #/vol (Bld) 0.8 10*3/uL Normal 0.0-0.8 [facility] Comment on above: Performed By: #### H EMDF, PT, BMP3M, PHOS3, MG3, CK3 #### [address] #### VD25H #### [facility] [address] [place] [address] Monocytes/100 WBC (Bld) 6.7 % Normal 2.0-10.0 [facility] Comment on above: Performed By: #### H EMDF, PT, BMP3M, PHOS3, MG3, CK3 #### [address] #### VD25H #### [facility] [address] [place] [address] Platelet mean volume Entitic volume (Bld) 8.4 fL Normal 7.4-10.4 [facility] Comment on above: Performed By: #### H EMDF, PT, BMP3M, PHOS3, MG3, CK3 #### [address] #### VD25H #### [facility] [address] [place] [address] Platelets #/vol (Bld) 185 10*3/uL Normal 140-440 [facility] Comment on above: Performed By: #### H EMDF, PT, BMP3M, PHOS3, MG3, CK3 #### [facility] [address] [place] #### VD25H #### [employer] [facility] [address] [place] [address] RBC #/vol (Bld) 4.57 10*6/uL Normal 4.40-5.[address] [facility] Comment on above: Performed By: #### H EMDF, PT, BMP3M, PHOS3, MG3, CK3 #### [employer] [facility] [address] [place], [place] #### VD25H #### [facility] [address] [place] [address] WBC #/vol (Bld) 12.1 10*3/uL High 3.6-10.[address] [facility] Comment on above: Performed By: #### H EMDF, PT, BMP3M, PHOS3, MG3, CK3 #### [facility] [address] [place] #### VD25H #### [facility] [address] [place] [address] VL Venous Duplex US Lower Ex t Bilateralon 07-12-2018 VL Venous Duplex US Lower Ext Bilateral Patient Name: KATHYA HOOPER Ultrasound Exam Date/Time 07/12/2018 17:20:46 EDT Exam VL Venous Duplex US Lower Ext Bilateral Ordering Physician MD AVELAR ADAM Accession Number [id number] CPT4 Codes 94076 () Reason For Exam leg swelling Report [facility] --- Lower Extremity Venous Duplex Report Patient Name: ReidKathya forbes : 1955 Study Date: 07/12/2018 W (63yrs) Age: 63 Account: [id number] Gender: M Loc: T209 BP: Ordering: Joshua Avelar Technologist: Ordering Physician: Joshua Avelar Cisco Engineer: Elizabeth Sanford RVT Interpreting Physician: Krysta Arora --- Location: [facility] --- INDICATIONS: Edema. bilateral calves. [...] performed. The images were obtained using a [employer] E9 vascular ultrasound machine. --- VENOUS FLOW [...] ---------+-------+--- --+ Electronically signed by: Krysta Arora [id number] Final Dictated: 07/13/2018 8:45 am Dictating Physician: KRYSTA ARORA Signed Date and Time: 07/13/2018 8:45 am Signed by: KRYSTA ARORA Normal [facility] Basic Metabolic Panelon 06-29 Calcium mass conc 7.8 mg/dL Low 8.4-10.4 [facility] Comment on above: Performed By: #### H EMDF, PT, BMP3M, PHOS3, MG3, CK3 #### [facility] [address] [place] #### VD25H #### [facility] [address] [place] [address] Anion gap molar conc 4 Normal [facility] Comment on above: Performed By: #### H EMDF, PT, BMP3M, PHOS3, MG3, CK3 #### [facility] [address] [place] #### VD25H #### [facility] [address] [place] [address] CO2 molar conc 26 mmol/L Normal 22-30 [facility] Comment on above: Performed By: #### H EMDF, PT, BMP3M, PHOS3, MG3, CK3 #### [facility] [address] [place] #### VD25H #### [facility] [address] [place] [address] Glucose mass conc 118 mg/dL High 70-100 [facility] Comment on above: Performed By: #### H EMDF, PT, BMP3M, PHOS3, MG3, CK3 #### [facility] [address] [place] #### VD25H #### [facility] [address] [place] [address] Urea nitrogen mass conc 19 mg/dL Normal 7-20 [facility] Comment on above: Performed By: #### H EMDF, PT, BMP3M, PHOS3, MG3, CK3 #### [facility] [address] [place] #### VD25H #### [facility] [address] [place] [address] Creatinine mass conc 0.74 mg/dL Normal 0.52-1.25 [facility] Comment on above: Performed By: #### H EMDF, PT, BMP3M, PHOS3, MG3, CK3 #### [address] #### VD25H #### [facility] [address] [place] [address] GFR/1.73 sq M predicted among blacks MDRD vol rate/area (S/P/Bld) mL/min/{1.73_m2} Normal >60 [facility] Comment on above: Performed By: #### H EMDF, PT, BMP3M, PHOS3, MG3, CK3 #### [address] #### VD25H #### [facility] [address] [place] [address] GFR/1.73 sq M predicted among non-blacks MDRD vol rate/area (S/P/Bld) mL/min/{1.73_m2} Normal >60 [facility] Comment on above: Result Comment: Sour ce- MDRD equation with creatinine calibration to IDMS(NKDEP) eGFR not recommended for drug dose adjustment Performed By: #### H EMDF, PT, BMP3M, PHOS3, MG3, CK3 #### [address] #### VD25H #### [facility] [address] [place] [address] Chloride molar conc 112 mmol/L High 98-107 [facility] Comment on above: Performed By: #### H EMDF, PT, BMP3M, PHOS3, MG3, CK3 #### [facility] [address] [place] [address] #### VD25H #### [facility] [address] [place] [address] Potassium molar conc 3.8 mmol/L Normal 3.5-5.1 [facility] Comment on above: Performed By: #### H EMDF, PT, BMP3M, PHOS3, MG3, CK3 #### [facility] [address] [place] [address] #### VD25H #### [facility] [address] [place] [address] Sodium molar conc 141 mmol/L Normal 135-145 [facility] Comment on above: Performed By: #### H EMDF, PT, BMP3M, PHOS3, MG3, CK3 #### [facility] [address] [place] [address] #### VD25H #### [facility] [address] [place] [address] CR Chest 1 View Frontalon CR Chest 1 View Frontal Patient Name: KATHYA FELDER Diagnostic Radiology Exam Date/Time 07/11/2018 06:36:48 EDT Exam CR Chest 1 View Frontal Ordering Physician MD AVELAR ADAM Accession Number [id number] CPT4 Codes 13716 () Reason For Exam dyspnea Report EXAM [...] Transcribed Date and Time: 07/11/2018 7:05 Normal [facility] Hemogram w/ Autodiffon 07-11 Abs Baso Cnt 0.0 10*3/uL Normal 0.0-0.2 [facility] Comment on above: Performed By: #### H EMDF, PT, BMP3M, PHOS3, MG3, CK3 #### [facility] [address] [place] #### VD25H #### [facility] [address] [place] [address] Abs Neutrophile Cnt 8.8 10*3/uL High 1.8-7.0 [facility] Comment on above: Performed By: #### H EMDF, PT, BMP3M, PHOS3, MG3, CK3 #### [address] #### VD25H #### [facility] [address] [place] [address] Basophils/100 WBC (Bld) 0.4 % Normal 0.0-2.0 [facility] Comment on above: Performed By: #### H EMDF, PT, BMP3M, PHOS3, MG3, CK3 #### [address] #### VD25H #### [facility] [address] [place] [address] Eosinophils #/vol (Bld) 0.0 10*3/uL Normal 0.0-0.5 [facility] Comment on above: Performed By: #### H EMDF, PT, BMP3M, PHOS3, MG3, CK3 #### [facility] [address] [place] #### VD25H #### [facility] [address] [place] [address] Eosinophils/100 WBC (Bld) 0.4 % Low 1.0-6.0 [facility] Comment on above: Performed By: #### H EMDF, PT, BMP3M, PHOS3, MG3, CK3 #### [facility] [address] [place] #### VD25H #### [facility] [address] [place] [address] Erythrocyte distribution width Ratio (RBC) 13.7 % Normal 11.5-14.5 [facility] Comment on above: Performed By: #### H EMDF, PT, BMP3M, PHOS3, MG3, CK3 #### [facility] [address] [place] #### VD25H #### [facility] [address] [place] [address] Granulocytes/100 WBC (Bld) 80.6 % High 40.0-80.0 [facility] Comment on above: Performed By: #### H EMDF, PT, BMP3M, PHOS3, MG3, CK3 #### [address] #### VD25H #### [facility] [address] [place] [address] Hematocrit Volume Fraction (Bld) 32.8 % Low 40.0-52.0 [facility] Comment on above: Performed By: #### H EMDF, PT, BMP3M, PHOS3, MG3, CK3 #### [facility] [address] [place] #### VD25H #### [facility] [address] [place] [address] Hemoglobin mass conc (Bld) 11.4 g/dL Low 13.0-18.0 [facility] Comment on above: Performed By: #### H EMDF, PT, BMP3M, PHOS3, MG3, CK3 #### [address] [place] #### VD25H #### [facility] [address] [place] [address] Lymphocytes #/vol (Bld) 1.3 10*3/uL Normal 1.0-4.3 [facility] Comment on above: Performed By: #### H EMDF, PT, BMP3M, PHOS3, MG3, CK3 #### [address] #### VD25H #### [facility] [address] [place] [address] Lymphocytes/100 WBC (Bld) 11.5 % Low 20.0-40.0 [facility] Comment on above: Performed By: #### H EMDF, PT, BMP3M, PHOS3, MG3, CK3 #### [address] #### VD25H #### [facility] [address] [place] [address] MCH Entitic mass (RBC) 30.2 pg Normal 26.0-34.0 [facility] Comment on above: Performed By: #### H EMDF, PT, BMP3M, PHOS3, MG3, CK3 #### [address] #### VD25H #### [facility] [address] [facility] [place] [address] MCHC mass conc (RBC) 34.7 % Normal 32.0-36.0 [facility] Comment on above: Performed By: #### H EMDF, PT, BMP3M, PHOS3, MG3, CK3 #### [address] #### VD25H #### [facility] [address] [facility] [place] [address] MCV Entitic volume (RBC) 86.9 fL Normal 80.0-98.0 [facility] Comment on above: Performed By: #### H EMDF, PT, BMP3M, PHOS3, MG3, CK3 #### [place] [address] [place] #### VD25H #### [facility] [address] [place] [address] Monocytes #/vol (Bld) 0.8 10*3/uL Normal 0.0-0.8 [facility] Comment on above: Performed By: #### H EMDF, PT, BMP3M, PHOS3, MG3, CK3 #### [address] #### VD25H #### [facility] [address] [place] [address] Monocytes/100 WBC (Bld) 7.1 % Normal 2.0-10.0 [facility] Comment on above: Performed By: #### H EMDF, PT, BMP3M, PHOS3, MG3, CK3 #### [address] #### VD25H #### [facility] [address] [place] [address] Platelet mean volume Entitic volume (Bld) 8.8 fL Normal 7.4-10.4 [facility] Comment on above: Performed By: #### H EMDF, PT, BMP3M, PHOS3, MG3, CK3 #### [place] [address] [place] #### VD25H #### [facility] [address] [place] [address] Platelets #/vol (Bld) 158 10*3/uL Normal 140-440 [facility] Comment on above: Performed By: #### H EMDF, PT, BMP3M, PHOS3, MG3, CK3 #### [address] #### VD25H #### [facility] [address] [place] [address] RBC #/vol (Bld) 3.78 10*6/uL Low 4.40-5.90 [facility] Comment on above: Performed By: #### H EMDF, PT, BMP3M, PHOS3, MG3, CK3 #### [address] #### VD25H #### [facility] [address] [place] [address] WBC #/vol (Bld) 10.9 10*3/uL High 3.6-10.7 [facility] Comment on above: Performed By: #### H EMDF, PT, BMP3M, PHOS3, MG3, CK3 #### [address] #### VD25H #### [facility] [facility] [address] [place] [address] Magnesiumon 07-11-2018 Magnesium mass conc 2.3 mg/dL Normal 1.6-2.3 [facility] [employer] Comment on above: Performed By: #### H EMDF, PT, BMP3M, PHOS3, MG3, CK3 #### [facility] [address] #### VD25H #### [facility] [address] [place] [address] Phosphoruson 07-11-2018 Phosphate mass conc 2.8 mg/dL Normal 2.5-4.5 [facility] [employer] Comment on above: Performed By: #### H EMDF, PT, BMP3M, PHOS3, MG3, CK3 #### [facility] [address] #### VD25H #### [facility] [facility] [address] [place] [address] Basic Metabolic Panelon 06-29 Calcium mass conc 8.9 mg/dL Normal 8.4-10.4 [facility] Comment on above: Performed By: #### H EMDF, PT, BMP3M, PHOS3, MG3, CK3 #### [place] [address] [place] [address] #### VD25H #### [facility] [address] [place] [address] Glucose mass conc 133 mg/dL High 70-100 [facility] Comment on above: Performed By: #### H EMDF, PT, BMP3M, PHOS3, MG3, CK3 #### [place] [address] [place] [address] #### VD25H #### [facility] [address] [place] [address] Anion gap molar conc 4 Normal [facility] Comment on above: Performed By: #### H EMDF, PT, BMP3M, PHOS3, MG3, CK3 #### [address] [place] [address] #### VD25H #### [facility] [address] [place] [address] CO2 molar conc 27 mmol/L Normal 22-30 [facility] Comment on above: Performed By: #### H EMDF, PT, BMP3M, PHOS3, MG3, CK3 #### [place] [address] [place] [address] #### VD25H #### [facility] [address] [place] [address] Creatinine mass conc 0.69 mg/dL Normal 0.52-1.25 [facility] Comment on above: Performed By: #### H EMDF, PT, BMP3M, PHOS3, MG3, CK3 #### [place] [address] [place] [address] #### VD25H #### [facility] [address] [place] [address] GFR/1.73 sq M predicted among blacks MDRD vol rate/area (S/P/Bld) mL/min/{1.73_m2} Normal >60 [facility] Comment on above: Performed By: #### H EMDF, PT, BMP3M, PHOS3, MG3, CK3 #### [place] [address] [place] #### VD25H #### [facility] [address] [place] [address] GFR/1.73 sq M predicted among non-blacks MDRD vol rate/area (S/P/Bld) mL/min/{1.73_m2} Normal >60 [facility] Comment on above: Result Comment: Sour ce- MDRD equation with creatinine calibration to IDMS(NKDEP) eGFR not recommended for drug dose adjustment Performed By: #### H EMDF, PT, BMP3M, PHOS3, MG3, CK3 #### [place] [address] [address] [facility], [place] #### VD25H #### [facility] [address] [place] [address] Urea nitrogen mass conc 16 mg/dL Normal 7-20 [facility] Comment on above: Performed By: #### H EMDF, PT, BMP3M, PHOS3, MG3, CK3 #### [place] [address] [facility], [place] #### VD25H #### [facility] [address] [place] [address] Potassium molar conc 4.1 mmol/L Normal 3.5-5.1 [facility] Comment on above: Performed By: #### H EMDF, PT, BMP3M, PHOS3, MG3, CK3 #### [facility] [address] [facility], [place] #### VD25H #### [facility] [address] [place] [address] Sodium molar conc 142 mmol/L Normal 135-145 [facility] Comment on above: Performed By: #### H EMDF, PT, BMP3M, PHOS3, MG3, CK3 #### [address] [facility], [place] #### VD25H #### [facility] [address] [place] [address] Chloride molar conc 110 mmol/L High 98-107 [facility] Comment on above: Performed By: #### H EMDF, PT, BMP3M, PHOS3, MG3, CK3 #### [facility] [address] [place] #### VD25H #### [facility] [address] [place] [address] CKon 07-10-2018 CK enzyme act/vol 1291 U/L High 30-[address] Comment on above: Performed By: #### H EMDF, PT, BMP3M, PHOS3, MG3, CK3 #### [facility] [address] [place] #### VD25H #### [facility] [address] [place] [address] CK enzyme act/vol 1382 U/L High 30-[address] [facility] Comment on above: Performed By: #### H EMDF, PT, BMP3M, PHOS3, MG3, CK3 #### [facility] [address] [place] #### VD25H #### [facility] [address] [place] [address] CR Chest 1 View Frontalon CR Chest 1 View Frontal Patient Name: KATHYA FELDER Diagnostic Radiology Exam Date/Time 07/10/2018 06:38:06 EDT Exam CR Chest 1 View Frontal Ordering Physician MD NATE, [facility] Accession Number [id number] CPT4 Codes 79826 () Reason For Exam dyspnea Report EXAMINATION: [...] Transcribed Date and Time: 07/10/2018 8:57 Normal [facility] Hemogram w/ Autodiffon 07-10 Abs Baso Cnt 0.0 10*3/uL Normal 0.0-0.2 [facility] Comment on above: Performed By: #### H EMDF, PT, BMP3M, PHOS3, MG3, CK3 #### [place] [address] [address] [place] #### VD25H #### [facility] [address] [place] [address] Abs Neutrophile Cnt 12.2 10*3/uL High 1.8-7.0 [facility] Comment on above: Performed By: #### H EMDF, PT, BMP3M, PHOS3, MG3, CK3 #### [facility] [address] [place], [place] #### VD25H #### [facility] [address] [place] [address] Basophils/100 WBC (Bld) 0.3 % Normal 0.0-2.0 [facility] Comment on above: Performed By: #### H EMDF, PT, BMP3M, PHOS3, MG3, CK3 #### [facility] [address] [place], [place] #### VD25H #### [facility] [address] [place] [address] Eosinophils #/vol (Bld) 0.0 10*3/uL Normal 0.0-0.5 [facility] Comment on above: Performed By: #### H EMDF, PT, BMP3M, PHOS3, MG3, CK3 #### [facility] [address] [place] #### VD25H #### [facility] [address] [place] [address] Eosinophils/100 WBC (Bld) 0.0 % Low 1.0-6.0 [facility] Comment on above: Performed By: #### H EMDF, PT, BMP3M, PHOS3, MG3, CK3 #### [address] [place] #### VD25H #### [facility] [address] [place] [address] Erythrocyte distribution width Ratio (RBC) 13.9 % Normal 11.5-14.5 [facility] Comment on above: Performed By: #### H EMDF, PT, BMP3M, PHOS3, MG3, CK3 #### [address] #### VD25H #### [facility] [address] [place] [address] Granulocytes/100 WBC (Bld) 89.5 % High 40.0-80.0 [facility] Comment on above: Performed By: #### H EMDF, PT, BMP3M, PHOS3, MG3, CK3 #### [place] [address] [place], [place] #### VD25H #### [facility] [address] [place] [address] Hematocrit Volume Fraction (Bld) 36.0 % Low 40.0-52.0 [facility] Comment on above: Performed By: #### H EMDF, PT, BMP3M, PHOS3, MG3, CK3 #### [address] #### VD25H #### [facility] [address] [place] [address] Hemoglobin mass conc (Bld) 12.3 g/dL Low 13.0-18.0 [facility] Comment on above: Performed By: #### H EMDF, PT, BMP3M, PHOS3, MG3, CK3 #### [address] [place] #### VD25H #### [facility] [address] [place] [address] Lymphocytes #/vol (Bld) 0.6 10*3/uL Low 1.0-4.3 [facility] Comment on above: Performed By: #### H EMDF, PT, BMP3M, PHOS3, MG3, CK3 #### [address] #### VD25H #### [facility] [address] [place] [address] Lymphocytes/100 WBC (Bld) 4.3 % Low 20.0-40.0 [facility] Comment on above: Performed By: #### H EMDF, PT, BMP3M, PHOS3, MG3, CK3 #### [address] #### VD25H #### [facility] [address] [place] [address] MCH Entitic mass (RBC) 29.8 pg Normal 26.0-34.0 [facility] Comment on above: Performed By: #### H EMDF, PT, BMP3M, PHOS3, MG3, CK3 #### [address] #### VD25H #### [facility] [address] [place] [address] MCHC mass conc (RBC) 34.2 % Normal 32.0-36.0 [facility] Comment on above: Performed By: #### H EMDF, PT, BMP3M, PHOS3, MG3, CK3 #### [address] #### VD25H #### [facility] [address] [place] [address] MCV Entitic volume (RBC) 87.1 fL Normal 80.0-98.0 [facility] Comment on above: Performed By: #### H EMDF, PT, BMP3M, PHOS3, MG3, CK3 #### [facility] [address] [place] #### VD25H #### [facility] [address] [place] [address] Monocytes #/vol (Bld) 0.8 10*3/uL Normal 0.0-0.8 [facility] Comment on above: Performed By: #### H EMDF, PT, BMP3M, PHOS3, MG3, CK3 #### [address] #### VD25H #### [facility] [address] [place] [address] Monocytes/100 WBC (Bld) 5.9 % Normal 2.0-10.0 [facility] Comment on above: Performed By: #### H EMDF, PT, BMP3M, PHOS3, MG3, CK3 #### [address] #### VD25H #### [facility] [address] [place] [address] Platelet mean volume Entitic volume (Bld) 8.4 fL Normal 7.4-10.4 [facility] Comment on above: Performed By: #### H EMDF, PT, BMP3M, PHOS3, MG3, CK3 #### [address] #### VD25H #### [facility] [address] [place] [address] Platelets #/vol (Bld) 155 10*3/uL Normal 140-440 [facility] Comment on above: Performed By: #### H EMDF, PT, BMP3M, PHOS3, MG3, CK3 #### [address] #### VD25H #### [facility] [address] [place] [address] RBC #/vol (Bld) 4.13 10*6/uL Low 4.40-5.90 [facility] Comment on above: Performed By: #### H EMDF, PT, BMP3M, PHOS3, MG3, CK3 #### [address] #### VD25H #### [facility] [address] [place] [address] WBC #/vol (Bld) 13.6 10*3/uL High 3.6-10.7 [facility] Comment on above: Performed By: #### H EMDF, PT, BMP3M, PHOS3, MG3, CK3 #### [address] #### VD25H #### [place] [address] [place] [address] Magnesiumon 07-10-2018 Magnesium mass conc 2.3 mg/dL Normal 1.6-2.3 [facility] Comment on above: Performed By: #### H EMDF, PT, BMP3M, PHOS3, MG3, CK3 #### [address] #### VD25H #### [place] [address] [place] [address] Phosphoruson 07-10-2018 Phosphate mass conc 2.7 mg/dL Normal 2.5-4.5 [facility] Comment on above: Performed By: #### H EMDF, PT, BMP3M, PHOS3, MG3, CK3 #### [address] #### VD25H #### [facility] [address] [place] [address] Add on test from HISon 07-09 Add on test from HIS Accepted Normal [facility] Comment on above: Result Comment: Spec imen available & acceptable for analysis. Performed By: #### A DDON #### [address] Arterial Blood Gaseson 07-09 CO2 molar conc 24.5 mmol/L Normal 23.0-27.0 [facility] Comment on above: Performed By: #### H EMDF, PT, BMP3M, PHOS3, MG3, CK3 #### [address] #### VD25H #### [facility] [address] [place] [facility] [place] [address] HCO3 molar conc (Bld) 23.2 mmol/L Normal 21.0-25.0 [facility] Comment on above: Performed By: #### H EMDF, PT, BMP3M, PHOS3, MG3, CK3 #### [address] #### VD25H #### [place] [address] [place] [place] [address] Hemoglobin mass conc (Bld) 15.7 g/dL Normal ScreenOnly [facility] Comment on above: Performed By: #### H EMDF, PT, BMP3M, PHOS3, MG3, CK3 #### [address] #### VD25H #### [place] [address] [place] [address] Oxygen ppres (Bld) 397.4 mm[Hg] High 80.0-100.0 [facility] Comment on above: Performed By: #### H EMDF, PT, BMP3M, PHOS3, MG3, CK3 #### [address] #### VD25H #### [facility] [address] [place] [address] Oxygen saturation in Blood 99.2 % Normal 95.0-100.0 [facility] Comment on above: Performed By: #### H EMDF, PT, BMP3M, PHOS3, MG3, CK3 #### [address] #### VD25H #### [facility] [address] [place] [address] pCO2 42.3 mm[Hg] Normal 35.0-45.0 [facility] Comment on above: Performed By: #### H EMDF, PT, BMP3M, PHOS3, MG3, CK3 #### [address] #### VD25H #### [facility] [address] [place] [address] pH (Bld) 7.357 Normal 7.350-7.450 [facility] Comment on above: Performed By: #### H EMDF, PT, BMP3M, PHOS3, MG3, CK3 #### [address] #### VD25H #### [place] [address] [place] [address] Std Base Excess -2.3 mmol/L Normal -3.0-3.0 [facility] Comment on above: Performed By: #### H EMDF, PT, BMP3M, PHOS3, MG3, CK3 #### [address] #### VD25H #### [place] [address] [place] [address] FIO2 100% Normal [facility] Comment on above: Performed By: #### H EMDF, PT, BMP3M, PHOS3, MG3, CK3 #### [address] #### VD25H #### [facility] [address] [place] [address] Basic Metabolic Panelon 06-29 Calcium mass conc 8.6 mg/dL Normal 8.4-10.4 [facility] Comment on above: Performed By: #### H EMDF, PT, BMP3M, PHOS3, MG3, CK3 #### [address] [address] #### VD25H #### [facility] [address] [place] [address] Glucose mass conc 150 mg/dL High 70-100 [facility] Comment on above: Performed By: #### H EMDF, PT, BMP3M, PHOS3, MG3, CK3 #### [place] [address] [address] [place] #### VD25H #### [facility] [address] [place] [address] Anion gap molar conc 7 Normal [facility] Comment on above: Performed By: #### H EMDF, PT, BMP3M, PHOS3, MG3, CK3 #### [address] #### VD25H #### [place] [address] [place] [address] CO2 molar conc 26 mmol/L Normal 22-30 [facility] Comment on above: Performed By: #### H EMDF, PT, BMP3M, PHOS3, MG3, CK3 #### [address] #### VD25H #### [facility] [address] [place] [address] Creatinine mass conc 0.80 mg/dL Normal 0.52-1.25 [facility] Comment on above: Performed By: #### H EMDF, PT, BMP3M, PHOS3, MG3, CK3 #### [address] #### VD25H #### [facility] [address] [place] [address] GFR/1.73 sq M predicted among blacks MDRD vol rate/area (S/P/Bld) mL/min/{1.73_m2} Normal >60 [facility] Comment on above: Performed By: #### H EMDF, PT, BMP3M, PHOS3, MG3, CK3 #### [address] #### VD25H #### [facility] [address] [place] [address] GFR/1.73 sq M predicted among non-blacks MDRD vol rate/area (S/P/Bld) mL/min/{1.73_m2} Normal >60 [facility] Comment on above: Result Comment: Sour ce- MDRD equation with creatinine calibration to IDMS(NKDEP) eGFR not recommended for drug dose adjustment Performed By: #### H EMDF, PT, BMP3M, PHOS3, MG3, CK3 #### [place] [address] [address] [place] #### VD25H #### [facility] [address] [place] [address] Urea nitrogen mass conc 16 mg/dL Normal 7-20 [facility] Comment on above: Performed By: #### H EMDF, PT, BMP3M, PHOS3, MG3, CK3 #### [place] [address] [facility] [place] #### VD25H #### [facility] [address] [place] [address] Chloride molar conc 110 mmol/L High 98-107 [facility] Comment on above: Performed By: #### H EMDF, PT, BMP3M, PHOS3, MG3, CK3 #### [place] [address] [place] #### VD25H #### [facility] [address] [place] [address] Potassium molar conc 4.7 mmol/L Normal 3.5-5.1 [facility] Comment on above: Performed By: #### H EMDF, PT, BMP3M, PHOS3, MG3, CK3 #### [address] [facility], [place] #### VD25H #### [facility] [address] [place] [address] Sodium molar conc 143 mmol/L Normal 135-145 [facility] Comment on above: Performed By: #### H EMDF, PT, BMP3M, PHOS3, MG3, CK3 #### [facility] [address] [place] [address] #### VD25H #### [facility] [address] [place] [address] CKon 07-09-2018 CK enzyme act/vol 1451 U/L High 30-170 [facility] Comment on above: Performed By: #### H EMDF, PT, BMP3M, PHOS3, MG3, CK3 #### [facility] [address] [place] [address] #### VD25H #### [facility] [address] [place] [address] CK enzyme act/vol 3832 U/L High 30-170 [facility] Comment on above: Performed By: #### H EMDF, PT, BMP3M, PHOS3, MG3, CK3 #### [facility] [address] [place] [address] #### VD25H #### [facility] [address] [place] [address] CR Chest 1 View Frontalon CR Chest 1 View Frontal Patient Name: KATHYA FELDER Diagnostic Radiology Exam Date/Time 07/09/2018 06:21:56 EDT Exam CR Chest 1 View Frontal Ordering Physician MD NATE, NICOLE LEYDI Accession Number [id number] CPT4 Codes 60454 () Reason For Exam dyspnea Report CHEST [...] Transcribed Date and Time: 07/09/2018 6:39 Normal [facility] CR Chest Portableon 07-10-19 CR Chest Portable Patient Name: KATHYA HOOPER Diagnostic Radiology Exam Date/Time 07/09/2018 11:34:09 EDT Exam CR Chest Portable Ordering Physician [id number] GUNN Accession Number [id number] CPT4 Codes 31037 () Reason For Exam Central line placement [...] JOHN Transcribed Date and Time: 07/09/2018 1:01 [facility] CR Chest Portable Patient Name: KATHYA HOOPER Diagnostic Radiology Exam Date/Time 07/09/2018 03:05:20 EDT Exam CR Chest Portable Ordering Physician MD NATE, [facility] Accession Number [id number] CPT4 Codes 43806 () Reason For Exam intubation Report CHEST PORTABLE: Indication: Inpatient; intubation Views: Portable frontal Comparison: 07/08/2018 at 22:16 Time: 07/09/2018 at 2:46 FINDINGS: Interval intubation with endotracheal tube approximately 4.2 cm above the level of the alma. An enteric tube has been placed with distal tip below the hemidiaphragm but excluded from [id number]. Cardiac monitoring wires and leads are present. [...] Transcribed Date and Time: 07/09/2018 3:10 Normal [facility] CR Chest Portable Patient Name: KATHYA HOOPER Diagnostic Radiology Exam Date/Time 07/08/2018 22:31:57 EDT Exam CR Chest Portable Ordering Physician MD NATE, NICOLE LEYDI Accession Number [id number] CPT4 Codes 28897 () Reason For Exam cough Report CHEST [...] Time: 07/08/2018 11:34 pm Signed by: MD ESPOSIOT WENDELL Transcribed Date and Time: 07/08/2018 11:23 Normal [facility] CTA Head/Neck w/ + w/o contr birgit 07-09-2018 CTA Head/Neck w/ + w/o contrast Patient Name: KATHYA HOOPER CT Exam Date/Time 07/09/2018 04:42:10 EDT Exam CTA Head/Neck w/ + w/o contrast Ordering Physician MD RICKI, JORDAN Accession Number [id number] CPT4 Codes Q9967 (CT ISOVUE 370MG/[id number]), 56498 (), 74206 () Reason For Exam CERVICAL SPINE FRACTURE Report CLINICAL INFORMATION: C-spine fracture after trauma. Vascular injury suspected. CTA HEAD: After 75 ml Isovue IV contrast, 0.3 mm axial cuts were obtained through the brain. Coronal and sagittal reconstructions are reviewed. In addition, 3D images of the [place] were constructed by wi and reviewed simultaneously on the separate Vitrea [...] me and reviewed simultaneously on the separate [employer] Workstation. The examination is compared to a [...] Transcribed Date and Time: 07/09/2018 9:50 Normal [facility] Hemogram w/ Autodiffon 07-09 Abs Baso Cnt 0.1 10*3/uL Normal 0.0-0.2 [facility] Comment on above: Performed By: #### H EMDF, PT, BMP3M, PHOS3, MG3, CK3 #### [address] #### VD25H #### [facility] [address] [place] [address] Abs Neutrophile Cnt 13.3 10*3/uL High 1.8-7.0 [facility] Comment on above: Performed By: #### H EMDF, PT, BMP3M, PHOS3, MG3, CK3 #### [address] #### VD25H #### [facility] [address] [place] [address] Basophils/100 WBC (Bld) 0.3 % Normal 0.0-2.0 [facility] Comment on above: Performed By: #### H EMDF, PT, BMP3M, PHOS3, MG3, CK3 #### [address] #### VD25H #### [facility] [address] [place] [address] Eosinophils #/vol (Bld) 0.0 10*3/uL Normal 0.0-0.5 [facility] Comment on above: Performed By: #### H EMDF, PT, BMP3M, PHOS3, MG3, CK3 #### [facility] [address] [place] #### VD25H #### [facility] [address] [place] [address] Eosinophils/100 WBC (Bld) 0.0 % Low 1.0-6.0 [facility] Comment on above: Performed By: #### H EMDF, PT, BMP3M, PHOS3, MG3, CK3 #### [place] [address] [address] [place] #### VD25H #### [facility] [address] [place] [address] Erythrocyte distribution width Ratio (RBC) 13.7 % Normal 11.5-14.5 [facility] Comment on above: Performed By: #### H EMDF, PT, BMP3M, PHOS3, MG3, CK3 #### [address] #### VD25H #### [facility] [address] [place] [address] Granulocytes/100 WBC (Bld) 86.5 % High 40.0-80.0 [facility] Comment on above: Performed By: #### H EMDF, PT, BMP3M, PHOS3, MG3, CK3 #### [address] #### VD25H #### [facility] [address] [place] [address] Hematocrit Volume Fraction (Bld) 45.1 % Normal 40.0-52.0 [facility] Comment on above: Performed By: #### H EMDF, PT, BMP3M, PHOS3, MG3, CK3 #### [address] #### VD25H #### [facility] [address] [place] [address] Hemoglobin mass conc (Bld) 15.6 g/dL Normal 13.0-18.0 [facility] Comment on above: Performed By: #### H EMDF, PT, BMP3M, PHOS3, MG3, CK3 #### [address] #### VD25H #### [facility] [address] [place] [address] Lymphocytes #/vol (Bld) 0.8 10*3/uL Low 1.0-4.3 [facility] Comment on above: Performed By: #### H EMDF, PT, BMP3M, PHOS3, MG3, CK3 #### [address] #### VD25H #### [facility] [address] [place] [address] Lymphocytes/100 WBC (Bld) 5.5 % Low 20.0-40.0 [facility] Comment on above: Performed By: #### H EMDF, PT, BMP3M, PHOS3, MG3, CK3 #### [address] #### VD25H #### [facility] [address] [place] [address] MCH Entitic mass (RBC) 29.9 pg Normal 26.0-34.0 [facility] Comment on above: Performed By: #### H EMDF, PT, BMP3M, PHOS3, MG3, CK3 #### [address] #### VD25H #### [facility] [address] [place] [address] MCHC mass conc (RBC) 34.5 % Normal 32.0-36.0 [facility] Comment on above: Performed By: #### H EMDF, PT, BMP3M, PHOS3, MG3, CK3 #### [address] #### VD25H #### [facility] [address] [place] [address] MCV Entitic volume (RBC) 86.7 fL Normal 80.0-98.0 [facility] Comment on above: Performed By: #### H EMDF, PT, BMP3M, PHOS3, MG3, CK3 #### [place] [address] [address] [place] #### VD25H #### [facility] [address] [place] [address] Monocytes #/vol (Bld) 1.2 10*3/uL High 0.0-0.8 [facility] Comment on above: Performed By: #### H EMDF, PT, BMP3M, PHOS3, MG3, CK3 #### [address] #### VD25H #### [facility] [address] [place] [address] Monocytes/100 WBC (Bld) 7.7 % Normal 2.0-10.0 [facility] Comment on above: Performed By: #### H EMDF, PT, BMP3M, PHOS3, MG3, CK3 #### [address] #### VD25H #### [facility] [address] [place] [address] Platelet mean volume Entitic volume (Bld) 8.1 fL Normal 7.4-10.4 [facility] Comment on above: Performed By: #### H EMDF, PT, BMP3M, PHOS3, MG3, CK3 #### [address] #### VD25H #### [facility] [address] [place] [address] Platelets #/vol (Bld) 197 10*3/uL Normal 140-440 [facility] Comment on above: Performed By: #### H EMDF, PT, BMP3M, PHOS3, MG3, CK3 #### [address] #### VD25H #### [facility] [address] [place] [address] RBC #/vol (Bld) 5.20 10*6/uL Normal 4.40-5.90 [facility] Comment on above: Performed By: #### H EMDF, PT, BMP3M, PHOS3, MG3, CK3 #### [facility] [address] [place] [address] #### VD25H #### [facility] [address] [place] [address] WBC #/vol (Bld) 15.4 10*3/uL High 3.6-10.7 [facility] Comment on above: Performed By: #### H EMDF, PT, BMP3M, PHOS3, MG3, CK3 #### [facility] [address] [place] [address] #### VD25H #### [facility] [address] [place] [address] MRI Spine Cervical w/o Contr birgit 07-09-2018 MRI Spine Cervical w/o Contrast Patient Name: KATHYA HOOPER MRI Exam Date/Time 07/09/2018 00:44:49 EDT Exam MRI Spine Cervical w/o Contrast Ordering Physician MD CHEYENNE, BRITTANY BERRY Accession Number [id number] CPT4 Codes 10332 () Reason For Exam CERVICAL SPINE FRACTURE [...] Transcribed Date and Time: 07/09/2018 7:45 Normal [facility] Magnesiumon 07-09-2018 Magnesium mass conc 2.2 mg/dL Normal 1.6-2.3 [facility] Comment on above: Performed By: #### H EMDF, PT, BMP3M, PHOS3, MG3, CK3 #### [address] [address] #### VD25H #### [facility] [address] [place] [address] Phosphoruson 07-09-2018 Phosphate mass conc 4.0 mg/dL Normal 2.5-4.5 [facility] Comment on above: Performed By: #### H EMDF, PT, BMP3M, PHOS3, MG3, CK3 #### [address] [address] #### VD25H #### [facility] [address] [place] [address] Prothrombin Timeon 9 INR Coag RelTime (PPP) 1.0 Normal 0.9-1.1 [facility] Comment on above: Result Comment: Yefri [...] PT, BMP3M, PHOS3, MG3, CK3 #### [address] [address] #### VD25H #### [facility] [address] [facility] [place] [address] Prothrombin time (PT) Coag time (PPP) 10.3 s Normal 9.0-12.0 [facility] Comment on above: Result Comment: . Performed By: #### H EMDF, PT, BMP3M, PHOS3, MG3, CK3 #### [address] [address] #### VD25H #### [facility] [address] [facility] [place] [address] TS GELon 07-09-2018 TS GEL ABO Group: O Rh, Gel: POS Antibody Screen Gel: NEG Normal [facility] Comment on above: Performed By: #### T SGL #### [address] [address] Vit D 25-OH, Totalon 019 Vit D 25-OH, Total 23 ng/mL Low 30-100 [facility] Comment on above: Result Comment: Ther apy is based on measurement of Total 25-OHD with the following classification levels: Less than 20 ng/mL: Indicative of Vit D deficiency 20-30 ng/mL: Suggests Vit D insufficiency Optimal: Greater than or equal to 30 ng/mL Test performed by [employer] Competitive Immunoassay, measuring Total Vitamin D, not individual fractions. Performed By: #### H EMDF, PT, BMP3M, PHOS3, MG3, CK3 #### [facility] [address] [place] [address] #### VD25H #### [facility] [address] [place] [address] Hematologyon 01-03-2003 Lymphocytes (Bld) [#/Vol] RECTUM, BIOPSY - BENIGN COLONIC MUCOSA WITH INTRAMUCOSAL LYMPHOID AGGREGATES. [facility] Otheron 01-03-2003 CONVERTED ELECTRONIC SIGNATURE BARBARA CASTILLO M.D., PATHOLOGIST (Electronic signature on file) Final Signed Out: 01/03/2003 15:09 [facility] CONVERTED ORDERING PROVIDER Ordering Provider: BENI VERA [facility] Culture, urine Bacteria identified Cx Nom (U) Culture exhibits no growth. [facility] Work Phone: Vital Signs Date Time Vital Sign Value Performing Clinician Facility 10-02-2023 13:56-0400 Diastolic blood pressure 62 mm[Hg] Fei Farooq MD Work Phone: [facility] 10-02-2023 13:56-0400 Heart rate 104 /min Fei Farooq MD Work Phone: [facility] 10-02-2023 13:56-0400 SaO2% (BldA) [Mass fraction] 94 % Fei Farooq MD Work Phone: [facility] 10-02-2023 13:56-0400 Systolic blood pressure 124 mm[Hg] Fei Farooq MD Work Phone: [facility] 10-02-2023 11:13-0400 Respiratory rate 16 /min Fei Farooq MD Work Phone: [facility] 10-02-2023 09:47-0400 Body mass index (BMI) [Ratio] 26.19 kg/m2 Fei Farooq MD Work Phone: [facility] 10-02-2023 09:47-0400 Body temperature 98.01 [degF] Fei Farooq MD Work Phone: [facility] 10-02-2023 09:47-0400 Body weight 92.53 kg Fei Farooq MD Work Phone: [facility] 05-20-2022 18:30-0500 Body mass index (BMI) [Ratio] 26.32 kg/m2 Abelardo Gombash DO Work Phone: [facility] 05-20-2022 18:30-0500 Body temperature 97.3 [degF] Abelardo Gombash DO Work Phone: [facility] 05-20-2022 18:30-0500 Body weight 92.99 kg Abelardo Gombash DO Work Phone: [facility] 05-20-2022 18:30-0500 Diastolic blood pressure 108 mm[Hg] Abelardo Gombash DO Work Phone: [facility] 05-20-2022 18:30-0500 Heart rate 100 /min Abelardo Gombash DO Work Phone: [facility] 05-20-2022 18:30-0500 Respiratory rate 14 /min Abelardo Gombash DO Work Phone: [facility] 05-20-2022 18:30-0500 SaO2% (BldA) [Mass fraction] 98 % [facility] 05-20-2022 18:30-0500 Systolic blood pressure 125 mm[Hg] Abelardo Gombash DO Work Phone: [facility] 05-15-2021 09:40-0500 Body height 188 cm Timothy Micheal DO Work Phone: [facility] 05-15-2021 09:40-0500 Body mass index (BMI) [Ratio] 23.75 kg/m2 Timothy Micheal DO Work Phone: [employer] 05-15-2021 09:40-0500 Body weight 83.92 kg Timothy Micheal DO Work Phone: [employer] 05-15-2021 09:38-0500 Body temperature 97.59 [degF] Timothy Micheal DO Work Phone: [employer] 05-15-2021 09:38-0500 Diastolic blood pressure 76 mm[Hg] Timothy Micheal DO Work Phone: [employer] 05-15-2021 09:38-0500 Heart rate 102 /min Timothy Micheal DO Work Phone: [facility] 05-15-2021 09:38-0500 Respiratory rate 16 /min Timothy Micheal DO Work Phone: [facility] 05-15-2021 09:38-0500 SaO2% (BldA) [Mass fraction] 99 % Timothy Micheal DO Work Phone: [facility] 05-15-2021 09:38-0500 Systolic blood pressure 115 mm[Hg] Timothy Micheal DO Work Phone: [facility] 03-24-2021 10:20-0500 Respiratory rate 18 /min Brady Nesheim DO Work Phone: [facility] 03-24-2021 10:20-0500 SaO2% (BldA) [Mass fraction] 94 % Brady Nesheim DO Work Phone: [facility] 03-24-2021 08:44-0500 Body temperature 97.7 [degF] Bardy Nesheim DO Work Phone: [facility] 03-24-2021 08:44-0500 Diastolic blood pressure 55 mm[Hg] Brady Nesheim DO Work Phone: [facility] 03-24-2021 08:44-0500 Heart rate 85 /min Brady Nesheim DO Work Phone: [facility] 03-24-2021 08:44-0500 Systolic blood pressure 85 mm[Hg] Brady Nesheim DO Work Phone: [facility] 03-20-2021 13:41-0500 Body height 188 cm Brady Nesheim DO Work Phone: [facility] 03-20-2021 11:16-0500 Body mass index (BMI) [Ratio] 23.86 kg/m2 Brady Nesheim DO Work Phone: [facility] 03-20-2021 11:16-0500 Body weight 84.32 kg Brady Desai DO Work Phone: [facility] Comment on above: earlene Ingram RN (bed scal e measurement) on 03/20/2021 03-18-2021 15:02-0500 Body temperature 99.5 [degF] Boo Castro MD Work Phone: [facility] 03-18-2021 15:02-0500 Diastolic blood pressure 82 mm[Hg] Boo Castro MD Work Phone: [facility] 03-18-2021 15:02-0500 Heart rate 111 /min Boo Castro MD Work Phone: [facility] 03-18-2021 15:02-0500 Respiratory rate 18 /min Boo Castro MD Work Phone: [facility] 03-18-2021 15:02-0500 SaO2% (BldA) [Mass fraction] 93 % Boo Castro MD Work Phone: [facility] 03-18-2021 15:02-0500 Systolic blood pressure 111 mm[Hg] Boo Castro MD Work Phone: [facility] 10-30-2020 17:10-0400 Diastolic blood pressure 82 mm[Hg] Bethany Clemons MD Work Phone: [facility] Work Phone: 10-30-2020 17:10-0400 Heart rate 110 /min Bethany Clemons MD Work Phone: [facility] Work Phone: 10-30-2020 17:10-0400 Respiratory rate 16 /min Bethany Clemons MD Work Phone: [facility] Work Phone: 10-30-2020 17:10-0400 SaO2% (BldA) [Mass fraction] 99 % Bethany Clemons MD Work Phone: [facility] Work Phone: 10-30-2020 17:10-0400 Systolic blood pressure 125 mm[Hg] Bethany Clemons MD Work Phone: [facility] Work Phone: 10-30-2020 13:02-0400 Body mass index (BMI) [Ratio] 24.65 kg/m2 Bethany Clemons MD Work Phone: [facility] Work Phone: 10-30-2020 13:02-0400 Body temperature 96.91 [degF] Bethany Clemons MD Work Phone: [facility] Work Phone: 10-30-2020 13:02-0400 Body weight 87.09 kg Bethany Clemons MD Work Phone: [facility] Work Phone: 09-22-2020 05:01-0400 Diastolic blood pressure [...] 06-26-2020 21:50-0500 BP Diastolic 71 mm[Hg] Abelardo Gabriel [facility] Work Phone: 06-26-2020 21:50-0500 BP Systolic 118 mm[Hg] Abelardo BARNETT Work Phone: 06-26-2020 21:50-0500 Pulse (Heart Rate) [...] 115 mm[Hg] Elizabeth Moura MD Work Phone: [facility] Work Phone: 05-16-2019 19:57-0500 Body temperature 98.49 [degF] Elizabeth Moura MD Work Phone: [facility] Work Phone: NEGATED: Highlighted [id number] 14:34-0500 BMI (Body Mass Index) 22.16 kg/m2 Ana Diesch [employer] [facility] Work Phone: NEGATED: Highlighted [id number] 14:34-0500 Body weight 78.02 kg Ana Diesch [employer] [facility] Work Phone: NEGATED: Highlighted [id number] 14:34-0500 Body weight 78 kg Ana Diesch [employer] [facility] Work Phone: NEGATED: Highlighted [id number] 14:34-0500 BP Diastolic 66 mm[Hg] Ana Diesch [employer] [facility] Work Phone: NEGATED: Highlighted [id number] 14:34-0500 BP Systolic 102 mm[Hg] Ana Diesch [employer] [facility] Work Phone: NEGATED: Highlighted [id number] 14:34-0500 Height 187.96 cm 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 Phone: Encounters Encounter Date Encounter Type Care Provider Facility Start: 02-24-2025 ambulatory Renard Masters lity:[facility] Start: 02-21-2025 ambulatory Renard GARLAND Faci lity:[facility] Start: 02-17-2025 ambulatory Renard GARLAND Faci lity:[facility] Start: 02-10-2025 ambulatory Renard GARLAND Faci lity:[facility] Start: 02-03-2025 Registered Referred Renard Burgos - [place] [facility] Start: 02-03-2025 End: 02-03-2025 ambulatory Renard GARLAND Facility:[facility] Start: 01-27-2025 Registered Referred Renard Hensleysaros - [place] [facility] Start: 01-27-2025 End: 01-27-2025 ambulatory Renard GARLAND Facility:[facility] Start: 01-20-2025 Registered Referred Renard Amezquitaros - [place] [facility] Start: 01-20-2025 End: 01-20-2025 ambulatory Renard GARLAND Facility:[facility] Start: 01-13-2025 Registered Referred Renard Amezquitaros - [place] [facility] Start: 01-13-2025 End: 01-13-2025 ambulatory Renard GARLAND Facility:[facility] Start: 01-10-2025 Registered Referred Renard Burgos - [place] [facility] Start: 01-10-2025 End: 01-10-2025 ambulatory Renard GARLAND Facility:[facility] Start: 01-06-2025 Registered Referred Renard Amezquitaros - [place] [facility] Start: 01-06-2025 End: 01-06-2025 ambulatory Renard GARLAND Facility:[facility] Start: 12-31-2024 Registered Referred Renard Hensleysaros - [place] [facility] Start: 12-31-2024 End: 12-31-2024 ambulatory Renard GARLAND Facility:[facility] Start: 12-23-2024 End: 12-23-2024 ambulatory Renard GARLAND -[place] [facility] Start: 12-23-2024 End: 12-23-2024 Departed Referred Renard Burgos -[place] [facility] Start: 12-23-2024 End: 12-23-2024 ambulatory Renard GARLAND Facility:[facility] Start: 12-16-2024 ambulatory Renard GARLAND Faci lity:[facility] Start: 12-16-2024 Registered Referred Renard Burgos - [place] [facility] Start: 12-09-2024 ambulatory Renard GARLAND Faci lity:[facility] Start: 12-09-2024 Registered Referred Renard Burgos - [place] [facility] Start: 12-02-2024 Registered Referred Renard Amezquitaros - [place] [facility] Start: 12-02-2024 End: 12-02-2024 ambulatory Renard GARLAND Facility:[facility] Start: 11-25-2024 Registered Referred Renard Burgos - [place] [facility] Start: 11-25-2024 End: 11-25-2024 ambulatory Renard GARLAND Facility:[facility] Start: 11-18-2024 ambulatory Renard GARLAND Faci lity:[facility] Start: 11-18-2024 Registered Referred Renard Amezquitaros - [place] [facility] Start: 11-11-2024 Registered Referred Renard Burgos - [place] [facility] Start: 11-11-2024 End: 11-11-2024 ambulatory Renard GARLAND Facility:[facility] Start: 11-04-2024 Registered Referred Renard Burgos - [place] [facility] Start: 11-04-2024 End: 11-04-2024 ambulatory Renard GARLAND Facility:[facility] Start: 10-28-2024 Registered Referred Renard Burgos - [place] [facility] Start: 10-28-2024 End: 10-28-2024 ambulatory Renard GARLAND Facility:[facility] Start: 10-21-2024 End: 10-21-2024 ambulatory Renard GARLAND -[place] [facility] Start: 10-21-2024 End: 10-21-2024 Departed Referred Renard Burgos -[place] [facility] Start: 10-21-2024 Registered Referred Renard Burgos - [place] [facility] Start: 10-21-2024 End: 10-21-2024 ambulatory Renard GARLAND Facility:[facility] Start: 10-14-2024 ambulatory Renard GARLAND Faci lity:[facility] Start: 10-14-2024 Registered Referred Renard Burgos - [place] [facility] Start: 10-07-2024 ambulatory Renard GARLAND Faci lity:[facility] Start: 10-07-2024 Registered Referred Renard Bugros - [place] [facility] Start: 09-30-2024 ambulatory Renard GARLAND Faci lity:[facility] Start: 09-30-2024 Registered Referred Renard Burgos - [place] [facility] Start: 09-24-2024 End: 09-24-2024 ambulatory Renard GARLAND -[place] [facility] Start: 09-24-2024 End: 09-24-2024 Departed Referred Renard Burgos -[place] [facility] Start: 09-24-2024 Registered Referred Renard Burgos - [place] [facility] Start: 09-24-2024 End: 09-24-2024 ambulatory Renard GARLAND Facility:[facility] Start: 09-16-2024 End: 09-16-2024 ambulatory Renard GARALND -[place] [facility] Start: 09-16-2024 End: 09-16-2024 Departed Referred Renard Burgos -[place] [facility] Start: 09-16-2024 Registered Referred Renard Burgos - [place] [facility] Start: 09-16-2024 End: 09-16-2024 ambulatory Renard GARLAND Facility:[facility] Start: 09-11-2024 End: 09-11-2024 ambulatory Renard GARLAND [facility] Work Phone: Start: 09-11-2024 End: 09-11-2024 Departed Referred Renard Burgos -[place] [facility] Start: 09-11-2024 Registered Referred Renard Burgos - [place] [facility] Start: 09-11-2024 End: 09-11-2024 ambulatory Renard GARLAND Facility:[facility] Start: 09-09-2024 End: 09-09-2024 ambulatory Renard GARLAND [facility] Work Phone: Start: 09-09-2024 End: 09-09-2024 Departed Referred Renard [facility] Start: 09-09-2024 Registered Referred Renard [facility] Start: 09-09-2024 End: 09-09-2024 ambulatory Renard GARLAND Facility:[facility] Start: 09-02-2024 End: 09-02-2024 ambulatory Renard GARLAND [facility] Work Phone: Start: 09-02-2024 End: 09-02-2024 Departed Referred Renard Burgos -[place] [facility] Start: 09-02-2024 Registered Referred Renard Burgos - [place] [facility] Start: 09-02-2024 End: 09-02-2024 ambulatory Renard GARLAND Facility:[facility] Start: 08-26-2024 End: 08-26-2024 ambulatory Renard GARLAND [facility] Work Phone: Start: 08-26-2024 End: 08-26-2024 Departed Referred Renard Burgos -[place] [facility] Start: 08-26-2024 Registered Referred Renard Burgos - [place] [facility] Start: 08-26-2024 End: 08-26-2024 ambulatory Renard GARLAND Facility:[facility] Start: 08-23-2024 End: 08-23-2024 Departed Referred Renard Burgos -[place] [facility] Start: 08-23-2024 Registered Referred Renard Burgos - [place] [facility] Start: 08-23-2024 End: 08-23-2024 ambulatory Renard GARLAND Facility:[facility] Start: 08-19-2024 End: 08-19-2024 ambulatory Renard GARLAND [facility] Work Phone: Start: 08-19-2024 End: 08-19-2024 Departed Referred Renard Burgos -[place] [facility] Start: 08-19-2024 Registered Referred Renard Burgos - [place] [facility] Start: 08-19-2024 End: 08-19-2024 ambulatory Renard GARLAND Facility:[facility] Start: 08-12-2024 End: 08-12-2024 ambulatory Renard GARLAND [facility] Work Phone: Start: 08-12-2024 End: 08-12-2024 Departed Referred Renard Burgos -[place] [facility] Start: 08-12-2024 Registered Referred Renard Amezquitaros - [place] [facility] Start: 08-12-2024 End: 08-12-2024 ambulatory Renard GARLAND Facility:[facility] Start: 08-05-2024 End: 08-05-2024 Departed Referred Renard Burgos -[place] [facility] Start: 08-05-2024 Registered Referred Renard Burgos - [place] [facility] Start: 08-05-2024 End: 08-05-2024 ambulatory Renard GARLAND Facility:[facility] Start: 07-29-2024 End: 07-29-2024 ambulatory Renard GARLAND [facility] Work Phone: Start: 07-29-2024 End: 07-29-2024 Departed Referred Renard Burgos -[place] [facility] Start: 07-29-2024 Registered Referred Renard Burgos - [place] [facility] Start: 07-29-2024 End: 07-29-2024 ambulatory Renard GARLAND Facility:[facility] Start: 07-22-2024 End: 07-22-2024 ambulatory Renard GARLAND [facility] Work Phone: Start: 07-22-2024 End: 07-22-2024 Departed Referred Renard Burgos -[place] [facility] Start: 07-22-2024 Registered Referred Renard Burgos - [place] [facility] Start: 07-22-2024 End: 07-22-2024 ambulatory Renard GARLAND Facility:[facility] Start: 07-16-2024 End: 07-16-2024 ambulatory Renard GARLAND [facility] Work Phone: Start: 07-16-2024 End: 07-16-2024 Departed Referred Renard Amezquitaros -[place] [facility] Start: 07-16-2024 Registered Referred Renard Amezquitaros - [place] [facility] Start: 07-15-2024 End: 07-16-2024 ambulatory Renard GARLAND [facility] Work Phone: Start: 07-15-2024 End: 07-15-2024 Departed Referred Renard Hensleysaros -[place] [facility] Start: 07-15-2024 Registered Referred Renard Amezquitaros - [place] [facility] Start: 07-15-2024 End: 07-15-2024 ambulatory Renard GARLAND Facility:[facility] Start: 07-08-2024 End: 07-08-2024 ambulatory Renard GARLAND [facility] Work Phone: Start: 07-08-2024 End: 07-08-2024 Departed Referred Renard Amezquitaros -[place] [facility] Start: 07-08-2024 Registered Referred Renard Amezquitaros - [place] [facility] Start: 07-08-2024 End: 07-08-2024 ambulatory Renard GARLAND Facility:[facility] Start: 07-01-2024 End: 07-01-2024 ambulatory Renard GARLAND [facility] Work Phone: Start: 07-01-2024 End: 07-01-2024 Departed Referred Renard Amezquitaros -[place] [facility] Start: 07-01-2024 Registered Referred Renard Amezquitaros - [place] [facility] Start: 07-01-2024 End: 07-01-2024 ambulatory Renard GARLAND Facility:[facility] Start: 06-27-2024 End: 06-27-2024 ambulatory Renard GARLAND [facility] Work Phone: Start: 06-27-2024 End: 06-27-2024 Departed Referred Renard Amezquitaros -[place] [facility] Start: 06-27-2024 Registered Referred Renard Amezquitaros - [place] [facility] Start: 06-27-2024 End: 06-27-2024 ambulatory Renard GARLAND Facility:[facility] Start: 06-24-2024 End: 06-24-2024 Subsequent hospital visit by physician Rashaad Pink NP Work Phone: [facility] CT Imaging Comment on above: Chronic cough Start: 06-24-2024 End: 06-24-2024 ambulatory RASHAAD SMITH [facility] Start: 06-24-2024 End: 06-24-2024 Departed Referred Renard Hensleysaros -[place] [facility] Start: 06-24-2024 Registered Referred Renard Hensleysaros - [place] [facility] Start: 06-24-2024 End: 06-24-2024 ambulatory Renard GARLAND Facility:[facility] Start: 06-17-2024 End: 06-17-2024 ambulatory Renard GARLAND [facility] Work Phone: Start: 06-17-2024 End: 06-17-2024 Departed Referred Renard Hensleysaros -[place] [facility] Start: 06-17-2024 Registered Referred Renard Hensleysaros - [place] [facility] Start: 06-17-2024 End: 06-17-2024 ambulatory Renard GARLAND Facility:[facility] Start: 06-12-2024 End: 09-11-2024 Transcribe Orders Rashaad Pink NP Work Phone: [facility] Scheduling Comment on above: Chronic cough (Prima ry Dx) Start: 06-10-2024 End: 06-10-2024 ambulatory Renard GARLAND [facility] Work Phone: Start: 06-10-2024 End: 06-10-2024 Departed Referred Renard Hensleysaros -[place] [facility] Start: 06-10-2024 Registered Referred Renard Hensleysaros - [place] [facility] Start: 06-10-2024 End: 06-10-2024 ambulatory Renard GARLAND Facility:[facility] Start: 06-07-2024 End: 06-07-2024 ambulatory Renard GARLAND [facility] Work Phone: Start: 06-07-2024 End: 06-07-2024 Departed Referred Renard BRUNO Start: 06-07-2024 Registered Referred Renard BRUNO Start: 06-07-2024 End: 06-07-2024 ambulatory Renard GARLAND Facility:[facility] Start: 06-03-2024 End: 06-03-2024 ambulatory Renard GARLAND [facility] Work Phone: Start: 06-03-2024 End: 06-03-2024 Departed Referred Renard BRUNO Start: 06-03-2024 End: 06-03-2024 ambulatory Renard GARLAND Facility:[facility] Start: 05-27-2024 End: 05-27-2024 Departed Referred Renard BRUNO Start: 05-27-2024 End: 05-27-2024 ambulatory Renard GARLAND Facility:[facility] Start: 05-20-2024 End: 05-20-2024 Departed Referred Renard BRUNO Start: 05-20-2024 End: 05-20-2024 ambulatory Renard GARLAND Facility:[facility] Start: 05-13-2024 End: 05-13-2024 Departed Referred Renard BRUNO Start: 05-13-2024 End: 05-13-2024 ambulatory Renard GARLAND Facility:[facility] Start: 05-06-2024 End: 05-06-2024 Departed Referred Renard BRUNO Start: 05-06-2024 End: 05-06-2024 ambulatory Renard GARLAND Facility:[facility] Start: 05-03-2024 End: 05-03-2024 Telephone encounter Renard Burgos Work Phone: [facility] Clinical Communication Comment on above: Other Start: 04-29-2024 End: 04-29-2024 Departed Referred Peter Katsaros -[place] [facility] Start: 04-29-2024 End: 04-29-2024 ambulatory Renard GARLAND Facility:[facility] Start: 04-22-2024 End: 04-22-2024 Departed Referred Renard Burgos -[place] [facility] Start: 04-22-2024 End: 04-22-2024 ambulatory Renard GARLAND Facility:[facility] Start: 04-15-2024 End: 04-15-2024 Departed Referred Renard Burgos -[place] [facility] Start: 04-15-2024 End: 04-15-2024 ambulatory Renard GARLAND Facility:[facility] Start: 04-08-2024 ambulatory Renard GARLAND Faci lity:[facility] Start: 04-08-2024 Registered Referred Renard Burgso - [place] [facility] Start: 04-01-2024 ambulatory Renard GARLAND Faci lity:[facility] Start: 04-01-2024 Registered Referred Renard Burgos - [place] [facility] Start: 03-25-2024 End: 03-25-2024 Departed Referred Renard Amezquitaros -[place] [facility] Start: 03-25-2024 End: 03-25-2024 ambulatory Renard GARLAND Facility:[facility] Start: 03-18-2024 End: 03-18-2024 Departed Referred Renard Burgos -[place] [facility] Start: 03-18-2024 End: 03-18-2024 ambulatory Renard GARLAND Facility:[facility] Start: 03-11-2024 End: 03-11-2024 Departed Referred Renard Amezquitaros -[place] [facility] Start: 03-11-2024 End: 03-11-2024 ambulatory Renard GARLAND Facility:[facility] Start: 03-04-2024 End: 03-04-2024 ambulatory Renard GARLAND Facility:[facility] Start: 11-22-2023 End: 11-22-2023 ambulatory RENARD BURGOS [facility] Start: 11-22-2023 End: 11-22-2023 Subsequent hospital visit by physician Renard Burgos Work Phone: [facility] X-ray Imaging Comment on above: Dysphagia, oropharyn geal phase; Feeding difficulties Start: 10-16-2023 End: 01-15-2024 Transcribe Orders Renard Burgos Work Phone: [facility] Central Scheduling Comment on above: Dysphagia, oropharyn geal phase (Primary Dx); Feeding difficulties Start: 10-02-2023 End: 10-02-2023 Emergency department patient visit Fei Farooq MD Work Phone: [facility] ED Comment on above: Dyspnea, unspecified type (Primary Dx) Start: 08-07-[address] [facility] Start: 07-31-2023 End: 07-31-2023 ambulatory [facility] Work Phone: Start: 07-31-2023 End: 07-31-2023 Departed Referred [facility] Start: 07-31-2023 Registered [facility] Start: 07-24-2023 End: 07-24-2023 ambulatory [facility] Work Phone: Start: 07-24-2023 End: 07-24-2023 Departed Referred [facility] Start: 07-17-2023 End: 07-17-2023 ambulatory [facility] Work Phone: Start: 07-17-2023 End: 07-17-[address] [facility] Start: 07-17-2023 Registered [facility] Start: 07-10-2023 End: 07-10-2023 ambulatory [facility] Work Phone: Start: 07-10-2023 End: 07-10-2023 Departed Referred [facility] Start: 07-10-[address] [facility] [employer] Start: 07-03-2023 End: 07-03-2023 ambulatory [facility] Work Phone: Start: 07-03-2023 End: 07-03-2023 Departed Referred [facility] [facility] Start: 07-03-2023 Registered Referred [facility] [facility] Start: 06-26-2023 Registered Referred [facility] [facility] Start: 06-19-2023 End: 06-19-2023 ambulatory [facility] Work Phone: Start: 06-19-2023 End: 06-19-2023 [facility] Start: 06-19-2023 [facility] Start: 06-12-2023 End: 06-12-2023 ambulatory [facility] Work Phone: Start: 06-12-2023 End: 06-12-2023 [facility] Start: 06-12-2023 Registered Referred [facility] [facility] Start: 06-05-2023 End: 06-05-2023 ambulatory [facility] Work Phone: Start: 06-05-2023 End: 06-05-2023 Departed Referred [facility] [facility] Start: 06-05-2023 Registered Referred [facility] [facility] Start: 05-29-2023 End: 05-29-2023 Departed Referred [facility] [facility] Start: 05-29-2023 Registered Referred [facility] [facility] Start: 05-22-2023 End: 05-22-2023 ambulatory [facility] Work Phone: Start: 05-22-2023 End: 05-22-2023 [facility] Start: 05-22-2023 [facility] Start: 05-15-2023 End: 05-15-2023 [facility] Start: 05-15-2023 Registered Referred [facility] [facility] Start: 05-08-2023 End: 05-08-2023 ambulatory [facility] Work Phone: Start: 05-08-2023 End: 05-08-2023 [facility] Start: 04-17-2023 End: 04-17-2023 ambulatory [facility] Work Phone: Start: 04-17-2023 End: 04-17-2023 [facility] Start: 04-17-2023 [facility] Start: 04-14-2023 End: 04-14-2023 ambulatory [facility] Work Phone: Start: 04-14-2023 End: 04-14-2023 [facility] Start: 04-14-2023 Registered Referred [facility] [facility] Start: 04-10-2023 End: 04-10-2023 [facility] Start: 04-10-2023 Registered Referred [facility] [facility] Start: 04-03-2023 End: 04-03-2023 ambulatory [facility] Work Phone: Start: 04-03-2023 End: 04-03-2023 [facility] Start: 04-03-2023 [facility] Start: 03-27-2023 End: 03-27-2023 ambulatory [facility] Work Phone: Start: 03-27-2023 End: 03-27-[address] [facility] Start: 03-27-2023 Registered Referred [facility] [facility] Start: 03-20-2023 End: 03-20-2023 ambulatory [facility] Work Phone: Start: 03-20-2023 End: 03-20-2023 Departed Referred [facility] [facility] Start: 03-20-2023 Registered Referred [facility] [facility] Start: 03-16-2023 End: 03-16-2023 ambulatory [facility] Work Phone: Start: 03-16-2023 End: 03-16-2023 [facility] Start: 03-16-2023 [facility] Start: 03-13-2023 End: 03-13-2023 ambulatory [facility] Work Phone: Start: 03-13-2023 End: 03-13-2023 Departed Referred [facility] [facility] Start: 03-06-2023 End: 03-06-2023 ambulatory [facility] Work Phone: Start: 03-06-2023 End: 03-06-2023 Departed Referred [facility] [facility] Start: 03-06-2023 Registered Referred [facility] [facility] Start: 02-27-2023 End: 02-27-2023 ambulatory [facility] Work Phone: Start: 02-27-2023 End: 02-27-2023 Departed Referred [facility] [facility] Start: 02-20-2023 End: 02-20-2023 ambulatory [facility] Work Phone: Start: 02-20-2023 End: 02-20-2023 Departed Referred [facility] [facility] Start: 02-20-2023 [facility] Start: 02-13-2023 End: 02-13-2023 ambulatory [facility] Work Phone: Start: 02-13-2023 End: 02-13-2023 [facility] Start: 02-13-2023 Registered Referred [facility] [facility] Start: 02-06-2023 End: 02-06-2023 ambulatory [facility] Work Phone: Start: 02-06-2023 End: 02-06-2023 [facility] Start: 02-06-2023 [facility] Start: 01-30-2023 End: 01-30-2023 ambulatory [facility] Work Phone: Start: 01-30-2023 End: 01-30-2023 [facility] Start: 01-30-2023 Registered Referred [facility] [facility] Start: 01-23-2023 End: 01-23-2023 [facility] Start: 01-23-2023 Registered Referred [facility] [facility] Start: 01-16-2023 End: 01-16-2023 ambulatory [facility] Work Phone: Start: 01-16-2023 End: 01-16-2023 [facility] Start: 01-16-2023 Registered Referred [facility] [facility] Start: 01-09-2023 End: 01-09-2023 [facility] Start: 01-09-2023 Registered Referred [facility] [facility] Start: 01-03-2023 End: 01-03-2023 ambulatory [facility] Work Phone: Start: 01-03-2023 End: 01-03-2023 [facility] Start: 01-03-2023 Registered Referred [facility] [facility] Start: 12-26-2022 End: 12-26-2022 ambulatory [facility] Work Phone: Start: 12-26-2022 End: 12-26-2022 [facility] Start: 12-26-2022 [facility] Start: 12-19-2022 End: 12-19-2022 ambulatory [facility] Work Phone: Start: 12-19-2022 End: 12-19-2022 [facility] Start[facility] 12-19-2022 [facility] Start: 12-12-2022 End: 12-12-2022 [facility] Start: 12-12-2022 [facility] Start: 12-05-2022 End: 12-05-2022 ambulatory [facility] Work Phone: Start: 12-05-2022 End: 12-05-2022 [facility] Start[facility] 12-05-2022 [facility] Start: 11-28-2022 End: 11-28-2022 ambulatory [facility] Work Phone: Start: 11-28-2022 End: 11-28-2022 [facility] Start: 11-28-2022 [facility] Start: 11-21-2022 End: 11-21-2022 ambulatory [facility] Work Phone: Start: 11-21-2022 End: 11-21-2022 [facility] Start: 11-21-2022 [facility] Start: 11-14-2022 End: 11-14-2022 ambulatory [facility] Work Phone: Start: 11-14-2022 End: 11-14-2022 [facility] Start: 11-14-2022 [facility] Start: 11-07-2022 [facility] Start: 10-31-2022 End: 10-31-2022 ambulatory [facility] Work Phone: Start: 10-31-2022 End: 10-31-2022 [facility] Start: 10-31-2022 [facility] Start: 10-24-2022 End: 10-24-2022 ambulatory [facility] Work Phone: Start: 10-24-2022 End: 10-24-2022 [facility] Start: 10-24-2022 [facility] Start: 10-17-2022 End: 10-17-2022 [facility] Start: 10-17-2022 [facility] Start: 10-10-2022 End: 10-10-2022 ambulatory [facility] Work Phone: Start: 10-10-2022 End: 10-10-2022 [facility] Start: 10-10-2022 [facility] Start: 10-03-2022 End: 10-03-2022 ambulatory [facility] Work Phone: Start: 10-03-2022 End: 10-03-2022 [facility] Start: 09-19-2022 End: 09-19-2022 Departed Referred [facility] Start: 09-19-2022 Registered [facility] Start: 09-12-2022 End: 09-12-2022 ambulatory [facility] Work Phone: Start: 09-12-2022 End: 09-12-2022 Departed Referred [facility] Start: 09-05-2022 End: 09-05-2022 Departed Referred [facility] Start: 09-05-2022 Registered [facility] [facility] Start: 08-29-2022 End: 08-29-2022 Departed Referred [facility] [facility] Start: 08-29-2022 Registered Referred [facility] [facility] Start: 08-22-2022 End: 08-22-2022 ambulatory [facility] Work Phone: Start: 08-22-2022 End: 08-22-2022 Departed Referred [facility] Start: 08-22-2022 Registered Referred [facility] [facility] Start: 08-15-2022 End: 08-15-2022 ambulatory [facility] Work Phone: Start: 08-15-2022 End: 08-15-2022 Departed Referred [facility] Start: 08-15-2022 Registered Referred [facility] [facility] Start: 08-08-2022 End: 08-08-2022 Departed Referred [facility] Start: 08-08-2022 Registered [facility] [facility] Start: 08-01-2022 End: 08-01-2022 ambulatory [facility] Work Phone: Start: 08-01-2022 End: 08-01-2022 Departed Referred [facility] Start: 08-01-2022 Registered [facility] [facility] Start: 07-25-2022 End: 07-25-2022 ambulatory [facility] Work Phone: Start: 07-25-2022 End: 07-25-2022 Departed [facility] Start: 07-25-2022 Registered [facility] [facility] Start: 07-19-2022 End: 07-19-2022 Departed [facility] Start: 07-19-2022 Registered Referred [facility] [facility] Start: 07-18-2022 End: 07-18-2022 ambulatory [facility] Work Phone: Start: 07-18-2022 End: 07-18-2022 [facility] Start: 07-18-2022 Registered Referred [facility] [facility] Start: 07-11-2022 End: 07-11-2022 ambulatory [facility] Work Phone: Start: 07-11-2022 End: 07-11-2022 [facility] Start: 07-11-2022 Registered Referred [facility] Start: 07-04-2022 End: 07-04-2022 Departed Referred [facility] [facility] Start: 07-04-2022 Registered Referred [facility] [facility] Start: 06-27-2022 End: 06-27-2022 ambulatory [facility] Work Phone: Start: 06-27-2022 End: 06-27-2022 [facility] Start: 06-27-2022 Registered [facility] Start: 06-20-2022 End: 06-20-2022 ambulatory [facility] Work Phone: Start: 06-20-2022 End: 06-20-2022 [facility] Start: 06-20-[address] [facility] Start: 06-13-2022 End: 06-13-2022 ambulatory [facility] Work Phone: Start: 06-13-2022 End: 06-13-2022 Departed Referred [facility] Start: 06-13-2022 [facility] Start: 06-06-2022 End: 06-06-2022 Departed Referred [facility] Start: 06-06-2022 [facility] Start: 05-30-2022 End: 05-30-2022 ambulatory [facility] Work Phone: Start: 05-30-2022 End: 05-30-[address] [facility] Start: 05-23-2022 End: 05-23-2022 ambulatory [facility] Work Phone: Start: 05-23-2022 End: 05-23-2022 Departed Referred [facility] Start: 05-23-[address] [facility] [employer] Start: 05-20-2022 End: 05-20-2022 Emergency department patient visit Abelardo Rios Work Phone: [facility] Comment on above: Dislodged gastrostom y tube (Primary Dx) Start: 05-16-2022 End: 05-16-2022 Departed Referred [facility] Start: 05-16-[address] [facility] Start: 05-09-2022 End: 05-09-2022 ambulatory [facility] Work Phone: Start: 05-09-2022 End: 05-09-2022 [facility] Start: 05-09-2022 Registered Referred [facility] Start: 05-03-2022 End: 05-03-2022 ambulatory [facility] Work Phone: Start: 05-03-2022 End: 05-03-2022 [facility] Start: 05-03-2022 [facility] Start: 04-26-2022 End: 04-26-2022 [facility] Start: 04-26-2022 [facility] Start: 04-18-2022 End: 04-18-2022 ambulatory [facility] Work Phone: Start: 04-18-2022 End: 04-18-2022 [facility] Start: 04-18-2022 [facility] Start: 04-14-2022 End: 04-14-2022 ambulatory [facility] Work Phone: Start: 04-14-2022 End: 04-14-[address] [facility] Start: 04-14-2022 [facility] Start: 04-11-2022 End: 04-11-2022 ambulatory [facility] Work Phone: Start: 04-11-2022 End: 04-11-[address] [facility] Start: 04-11-2022 [facility] Start: 04-04-2022 End: 04-04-2022 ambulatory [facility] Work Phone: Start: 04-04-2022 End: 04-04-2022 Departed Referred [facility] Start: 04-04-2022 Registered Referred [facility] [facility] Start: 03-28-2022 End: 03-28-2022 ambulatory [facility] Work Phone: Start: 03-28-2022 End: 03-28-2022 Departed Referred [facility] Start: 03-28-2022 Registered Referred [facility] [facility] Start: 03-21-2022 End: 03-21-2022 ambulatory [facility] Work Phone: Start: 03-21-2022 End: 03-21-2022 Departed [facility] Start: 03-21-2022 Registered Referred [facility] [facility] Start: 03-14-2022 End: 03-14-2022 Departed Referred [facility] Start: 03-14-2022 Registered Referred [facility] [facility] Start: 2022 End: 2022 ambulatory [facility] Work Phone: Start: 2022 End: 2022 Departed Referred [facility] Start: 2022 Registered Referred [facility] [facility] Start: 02-28-2022 End: 02-28-2022 Departed Referred [facility] Start: 02-28-2022 Registered Referred [facility] [facility] Start: 02-21-2022 End: 02-21-2022 ambulatory [facility] Work Phone: Start: 02-21-2022 End: 02-21-2022 Departed Referred [facility] Start: 02-21-2022 Registered Referred [facility] [facility] Start: 02-14-2022 End: 02-14-2022 ambulatory [facility] Work Phone: Start: 02-14-2022 End: 02-14-2022 Departed [facility] Start: 02-14-2022 Registered Referred [facility] Start: 02-07-2022 End: 02-07-2022 ambulatory [facility] Work Phone: Start: 02-07-2022 End: 02-07-2022 Departed [facility] Start: 02-07-2022 Registered Referred [facility] Start: 01-31-2022 End: 01-31-2022 ambulatory [facility] Work Phone: Start: 01-31-2022 End: 01-31-2022 Departed [facility] Start: 01-31-2022 Registered Referred [facility] Start: 01-24-2022 End: 01-24-2022 ambulatory [facility] Work Phone: Start: 01-24-2022 End: 01-24-2022 Departed [facility] Start: 01-24-2022 Registered Referred [facility] Start: 01-17-2022 End: 01-17-2022 Departed [facility] Start: 01-17-2022 Registered Referred [facility] [facility] Start: 01-10-2022 End: 01-10-2022 ambulatory [facility] Work Phone: Start: 01-10-2022 End: 01-10-2022 Departed Referred [facility] Start: 01-10-2022 Registered Referred [facility] [facility] Start: 01-04-2022 End: 01-04-2022 ambulatory [facility] Work Phone: Start: 01-04-2022 End: 01-04-2022 Departed Referred [facility] Start: 01-04-2022 Registered Referred [facility] [facility] Start: 12-27-2021 End: 12-27-2021 ambulatory [facility] Work Phone: Start: 12-27-2021 End: 12-27-2021 [facility] Start: 12-27-2021 [facility] Start: 12-20-2021 End: 12-20-2021 ambulatory [facility] Work Phone: Start: 12-20-2021 End: 12-20-2021 [facility] Start: 12-20-2021 [facility] Start: 12-13-2021 End: 12-13-2021 [facility] Start: 12-13-2021 Registered Referred [facility] [facility] Start: 12-06-2021 End: 12-06-2021 ambulatory [facility] Work Phone: Start: 12-06-2021 End: 12-06-2021 [facility] Start: 12-06-2021 Registered [facility] [facility] Start: 11-29-2021 End: 11-29-2021 ambulatory [facility] Work Phone: Start: 11-29-2021 End: 11-29-2021 [facility] Start: 11-29-2021 Registered Referred [facility] [facility] Start: 11-22-2021 End: 11-22-2021 [facility] Start: 11-22-2021 Registered Referred [facility] [facility] Start: 11-15-2021 End: 11-15-2021 Departed Referred [facility] [facility] Start: 11-15-2021 Registered Referred [facility] [facility] Start: 11-08-2021 End: 11-08-2021 Departed Referred [facility] [facility] Start: 10-25-2021 Registered Referred [facility] [facility] Start: 10-18-2021 Registered Referred [facility] [facility] Start: 10-11-2021 Registered Referred [facility] [facility] Start: 10-04-2021 Registered Referred [facility] [facility] Start: 09-28-2021 End: 09-28-2021 Departed Ref[facility] [place] [facility] Start: 09-28-2021 Registered Referred [facility] [facility] Start: 09-20-2021 End: 09-20-2021 Departed Referred [facility] [facility] Start: 09-20-2021 Registered Referred [facility] [facility] Start: 09-13-2021 End: 09-13-2021 Departed Referred [facility] [facility] Start: 09-13-2021 Registered Referred [facility] [facility] Start: 09-06-2021 End: 09-06-2021 Departed Referred [facility] [facility] Start: 09-06-2021 Registered Referred [facility] [facility] Start: 08-30-2021 End: 08-30-2021 Departed Referred [facility] [facility] Start: 08-30-2021 Registered Referred [facility] [facility] Start: 08-23-2021 End: 08-23-2021 Departed Referred [facility] [facility] Start: 08-23-2021 Registered Referred [facility] [facility] Start: 08-18-2021 End: 08-18-2021 Departed Referred [facility] [facility] Start: 08-18-2021 Registered Referred [facility] [facility] Start: 08-16-2021 End: 08-16-2021 Departed [facility] [facility] Start: 08-16-2021 [facility] [facility] Start: 08-09-2021 End: 08-09-2021 Departed Ref[facility] [facility] Start: 08-02-2021 End: 08-02-2021 Departed Ref[facility] Start: 08-02-2021 Registered Referred [facility] Start: 07-26-2021 End: 07-26-2021 [facility] Start: 07-26-2021 Registered Referred [facility] Start: 07-19-2021 End: 07-19-2021 Departed Ref[facility] [facility] Start: 07-19-2021 Registered Referred [facility] [facility] Start: 07-12-2021 End: 07-12-2021 Departed [facility] [facility] Start: 07-05-2021 End: 07-05-2021 Departed Referred [facility] [facility] Start: 07-05-2021 Registered Referred [facility] [facility] Start: 06-28-2021 End: 06-28-2021 Departed Referred [facility] [facility] Start: 06-28-2021 Registered Ref[facility] [facility] Start: 06-21-2021 End: 06-21-2021 [facility] Start: 06-21-2021 Registered Referred [facility] Start: 06-14-2021 Registered Referred [facility] Start: 06-07-2021 End: 06-07-2021 Departed Referred [facility] Start: 06-07-2021 Registered Referred [facility] Start: 05-31-2021 End: 05-31-2021 Departed Referred [facility] Start: 05-31-[address] [facility] Start: 05-24-2021 End: 05-24-2021 [facility] Start: 05-17-2021 Registered Referred [facility] Start: 05-15-2021 End: 05-15-2021 Emergency department patient visit Timothy Micheal DO Work Phone: [facility] Comment on above: PEG tube malfunction (HCC) (Primary Dx) Start: 05-14-2021 Registered Referred [facility] Start: 05-10-[address] [facility] Start: 05-03-2021 Registered Referred [facility] Start: 04-26-[address] [facility] Start: 04-19-[address] [facility] [employer] Start: 04-12-[address] [facility] Start: 04-07-[address] [facility] [employer] [facility] Start: 03-19-2021 End: 03-24-2021 Evaluation and management of inpatient Brady Desai DO Work Phone: [facility] Comment on above: Respiratory syncytia l virus (RSV) (Primary Dx); Hypoxia Start: 03-18-2021 End: 03-18-2021 Emergency department patient visit Boo Castro MD Work Phone: [facility] ED Comment on above: Respiratory syncytia l virus (RSV) (Primary Dx); Hypoxia Start: 10-30-2020 End: 10-30-2020 Emergency department patient visit Bethany Clemons MD Work Phone: [facility] Comment on above: Feeding tube dysfunc tion, initial encounter (Primary Dx) Start: 09-22-2020 End: 09-22-2020 Emergency department patient visit Elizabeth Moura MD Work Phone: [facility] Comment on above: PEG tube malfunction (HCC) (Primary Dx) Start: 06-26-2020 End: 06-26-2020 Emergency department patient visit Abelardo Rios Work Phone: [facility] Comment on above: PEG tube malfunction (HCC) (Primary Dx) Start: 05-22-2019 End: 05-22-2019 Patient encounter procedure Jarvis Kendall MD Work Phone: [facility] Work Phone: Start: 05-22-2019 End: 05-22-2019 Pt evaluation Jarvis Kendall MD Work Phone: [facility] Work Phone: Start: 05-16-2019 End: 05-16-2019 Emergency department patient visit Elizabeth Moura MD Work Phone: [facility] Comment on above: Contusion of right h ip, initial encounter (Primary Dx) Start: 08-15-2018 Evaluation and management of inpatient UNKNOWN PROVIDER [facility] Start: 07-08-2018 Evaluation and management of inpatient JORDAN EZRAJOSH [facility] Start: 01-02-2003 End: 01-02-2003 Patient encounter procedure Beni Shaista Work Phone: [facility] Start: 01-02-2003 Results Only Beni Shaista Work Phone: [facility] Procedures Date Procedure Procedure Detail Performing Clinician [...] GFR Calc Start: 06-07-2024 Urine culture Renard Hensley rustam [facility] Start: 06-07-2024 Urnls dip stick/tabl et reagent auto microscopy Renard Shellierustam [place] Start: 11-22-2023 Radiologic exam swal low function contrast study Renard Hensleyrustam Work Phone: Start: 10-02-2023 Comprehensive metabo lic [...] ev cleared fda spec home use Rafa Mihcel MD Work Phone: Start: 03-23-2021 Gluc bld [...] a1c Isaac Stafford MD Work Phone: Start: 11-21-2021 Gluc bld gluc mntr d ev cleared [...] w/le ast 12 lds w/i&r Brady Chiquita Espinosaheim DO Work Phone: Start: 03-18-2021 Antibody screen [...] p erq radiologic eval gi tube Abelardo A Gombash Work Phone: Start: 06-26-2020 FEEDING TUBE REPLACEMENT [...] EMDF, PT, BMP3M, PHOS3, MG3, CK3 #### [facility] [address] [place] [address] #### [id number] #### [facility] [address] [place] [address] Start: 07-27-2018 Microscopic examinat ion of blood, culture Comment on above: Order Comment: Speci men Source Comment:Blood Performed By: #### H EMDF, PT, BMP3M, PHOS3, MG3, CK3 #### [facility] [address] [place] [address] #### [id number] #### [facility] [address] [place] [address] Start: 07-19-2018 Microscopic examinat ion of blood, culture Comment on above: Order Comment: Speci men Source Comment:Blood Performed By: #### H EMDF, PT, BMP3M, PHOS3, MG3, CK3 #### [facility] [address] [place] [address] #### [id number] #### [facility] [address] 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 NEGATED: Highlighted rowStart: 05-22-2019 End: 05-22-2019 Smoking cessation education Ana Stevenson CONTINU[employer] DRIER HELPER Plan of Treatment Date Care Activity Detail Author Start: 2032 RSV Immunization for Adults (1 - 1-dose 75+ series) RSV Immunization for Adults (1 - 1-dose 75+ series) [facility] Start: 01-10-2027 DTaP/Tdap/Td vaccine (2 - Td or Tdap) DTaP/Tdap/Td vaccine (2 - Td or Tdap) [facility] Start: 01-10-2027 DTaP/Tdap/Td vaccine (2 - Td) DTaP/Tdap/Td vaccine (2 - Td) [facility] Work Phone: Start: 01-10-2027 DTaP/Tdap/Td Vaccine s (2 - Td or Tdap) DTaP/Tdap/Td Vaccines (2 - Td or Tdap) [facility] Start: 02-24-2025 Registered Referred Registered [facility] [facility] Start: 02-21-2025 Registered Referred Registered [facility] [facility] Start: 02-17-2025 Registered Referred Registered [facility] [employer] Start: 02-10-2025 Registered Referred Registered Refer [employer] Start: 12-30-2024 Influenza vaccination Influenz a Vaccine (Season Ended) [facility] Start: 03-22-2024 Diabetes mellitus screening Diabetes Screening [facility] Start: 12-31-2023 COVID-19 Vaccine ( season) COVID-19 Vaccine ( season) [facility] Start: 12-31-2023 COVID-19 Vaccine ( season) COVID-19 Vaccine ( season) [facility] Start: 12-31-2023 COVID-19 Vaccine ( season) COVID-19 Vaccine ( season) [facility] Start: 12-31-2023 Influenza vaccination [facility] Start: 01-30-2023 Bacteria identified in Urine by Culture Urine Culture [facility] Start: 01-30-2023 [facility] Start: 12-30-2022 COVID-19 Vaccine ( season) COVID-19 Vaccine ( season) [facility] Start: 2022 Pneumococcal 0-64 ye ars Vaccine (2 of 2 - PPSV23) Pneumococcal 0-64 years Vaccine (2 of 2 - PPSV23) [facility] Start: 2022 Pneumococcal 0-64 ye ars Vaccine (2 of 2) Pneumococcal 0-64 years Vaccine (2 of 2) [facility] Work Phone: Start: 2022 Pneumococcal Vaccine : 65+ Years (2 of 2 - PCV) Pneumococcal Vaccine: 65+ Years (2 of 2 - PCV) [facility] Start: 12-30-2021 Influenza vaccination Influenza Vacc ine (#1) [facility] Start: 12-30-2020 Influenza vaccination [facility] Start: 12-31-2019 Influenza vaccination Flu vaccine (# 1) [facility] Work Phone: Start: 08-18-2019 A1C test (Diabetic o r Prediabetic) A1C test (Diabetic or Prediabetic) [facility] Work Phone: Start: 08-18-2019 HbA1c (Bld) [Mass fraction] A1C test (Diabetic or Prediabetic) [facility] Work Phone: Start: 08-18-2019 Hemoglobin A1c measurement A1C test (Diabetic or Prediabetic) [facility] Start: 05-22-2019 End: 05-22-2019 Appointment Appointment [facility] Work Phone: Start: 02-07-2019 Lipid panel Lipid screen [facility] Start: 02-07-2019 Lipid screen Lipid screen [facility] Work Phone: Start: 12-30-2018 Influenza vaccination Flu vaccine (# 1) [facility] Work Phone: Start: 01-10-2018 Pneumococcal Vaccine : 50+ Years (2 of 2 - PCV) Pneumococcal Vaccine: 50+ Years (2 of 2 - PCV) [facility] Start: 01-10-2018 Pneumococcal Vaccine : 65+ Years (2 - PCV) Pneumococcal Vaccine: 65+ Years (2 - PCV) [facility] Start: 2017 RSV Immunization age d 60 or older (1 - 1-dose 60+ series) RSV Immunization aged 60 or older (1 - 1-dose 60+ series) [facility] Start: 2007 Colon cancer screen colonoscopy Colon cancer screen colonoscopy [facility] Work Phone: Start: 2007 Screening for malign ant neoplasm of colon Colon cancer screen colonoscopy [facility] Work Phone: Start: 2007 Shingles Vaccine (1 of 2) Shingles Vaccine (1 of 2) [facility] Start: 2007 Zoster Vaccines (1 o f 2) Zoster Vaccines (1 of 2) [facility] Start: 2002 Screening for malign ant neoplasm of colon Colon cancer screen colonoscopy [facility] Start: 1976 Hepatitis A Vaccines (1 of 2 - Risk 2-dose series) Hepatitis A Vaccines (1 of 2 - Risk 2-dose series) [facility] Start: 1975 Hepatitis C screening Hepatitis C Sc reening [facility] Start: 1969 COVID-19 Vaccine (1) COVID-19 Vaccin e (1) [facility] Start: 1969 Depression Monitoring Depression Mon itoring [facility] Start: 1969 Depression Screen Depression Screen [facility] Start: 1962 COVID-19 Vaccine (1) COVID-19 Vaccin e (1) [facility] Start: 1957 COVID-19 Vaccine (#1) COVID-19 Vacci ne (#1) [facility] Start: 1955 Annual wellness visit Medicare Initial Physical (IPPE) [facility] Start: 1957 Hepatitis B Vaccines (1 of 3 - 3-dose series) Hepatitis B Vaccines (1 of 3 - 3-dose series) [facility] Start: 1957 Lipid panel Lipid Panel [facility] Start: 1955 Screening for malign ant neoplasm of colon [facility] Basic metabolic 2000 panel - Serum or Plasma Basic Metabolic Panel Lab Routine Daily until discontinued starting 03/23/2021, 2 completed [employer] Work Phone: Comment on above: Daily until disconti nued starting 03/23/2021, 2 completed CBC W Auto Different ial panel - Blood CBC Auto Differential Lab Routine Daily until discontinued starting 03/23/2021, 2 completed [employer] Work Phone: Comment on above: Daily until disconti nued starting 03/23/2021, 2 completed End: 06-24-2024 CT Chest WO contrast [facility] Work Phone: Comment on above: Once for 1 Occurrenc es starting 06/24/2024 until 06/24/2024 Culture, Blood 2 Culture, Blood 2 Microbiology STAT 03/19/2021 6:26 PM EST [employer] Work Phone: End: 03-20-2021 Culture, Respiratory Culture, Respiratory Microbiology Routine One Time for 1 Occurrences starting 03/20/2021 until 03/20/2021 [employer] Work Phone: Comment on above: One Time for 1 Occur rences starting 03/20/2021 until 03/20/2021 EKG 12 Lead EKG 12 Lead ECG STAT 03/18/2021 3:20 PM EST [employer] Work Phone: Feeding Tube Feeding Tube Pro cedures Routine 10/30/2020 2:22 PM EDT [employer] Work Phone: End: 09-22-2020 FL WATER SOLUBLE ENEMA W OR WO KUB FL WATER SOLUBLE ENEMA W OR WO KUB Imaging STAT Once for 1 Occurrences starting 09/22/2020 until 09/22/2020 [employer] Work Phone: Comment on above: Once for 1 Occurrenc es starting 09/22/2020 until 09/22/2020 End: 03-23-2021 Glucose [Mass/volume] in Serum or Plasma POCT GLUCOSE Point of Care Testing Routine Now Then Every 6hr for 7 Occurrences starting 03/21/2021 until 03/23/2021 [employer] Work Phone: Comment on above: Now Then Every 6hr f or 7 Occurrences starting 03/21/2021 until 03/23/2021 High Frequency Chest Wall Oscillation (HFCWO) High Frequency Chest Wall Oscillation (HFCWO) Respiratory Care Routine (respiratory use only) until discontinued starting 03/22/2021 [employer] Work Phone: Comment on above: (respirato ry use only) until discontinued starting 03/22/2021 End: 03-20-2021 Legionella Antigen, Urine Legionella Antigen, Urine Microbiology Routine One Time for 1 Occurrences starting 03/20/2021 until 03/20/2021 [employer] Work Phone: Comment on above: One Time for 1 Occur rences starting 03/20/2021 until 03/20/2021 Microscopic examinat ion of blood, culture Culture, Blood Microbiology STAT 03/19/2021 6:26 PM EST [employer] Work Phone: End: 03-20-2021 Microscopic observation [Identifier] in Unspecified specimen by Gram stain Gram Stain Microbiology Routine Once for 1 Occurrences starting 03/20/2021 until 03/20/2021 [employer] Work Phone: Comment on above: Once for 1 Occurrenc es starting 03/20/2021 until 03/20/2021 Oxygen therapy [[facility] Data Set] Initiate Oxygen Therapy Protocol Respiratory Care Routine Daily until discontinued starting 03/20/2021 [employer] Work Phone: Comment on above: Daily until disconti nued starting 03/20/2021 Patient Education \\cps-sql1\\CPS_ PtEducati on\\CDC_FALL_PREVENTION. pdf, \\cps-sql1\\CPS_PtEducati on\\quitting_smoking_[id number].pdf [facility] Work Phone: RT Communication Order RT Commun ication Order Respiratory Care STAT Daily until discontinued starting 03/18/2021 [facility] Work Phone: Comment on above: Daily until disconti nued starting 03/18/2021 RT Communication Order RT Commun ication Order Respiratory Care Routine Daily until discontinued starting 03/20/2021 [facility] Work Phone: Comment on above: Daily until disconti nued starting 03/20/2021 End: 03-20-2021 STREP PNEUMONIAE ANTIGEN STREP PNEUMONIAE ANTIGEN Microbiology Routine One Time for 1 Occurrences starting 03/20/2021 until 03/20/2021 [facility] Work Phone: Comment on above: One Time for 1 Occur rences starting 03/20/2021 until 03/20/2021 End: 03-18-2021 Urinalysis Urinalysis Lab STAT One Time for 1 Occurrences starting 03/18/2021 until 03/18/2021 [facility] Work Phone: Comment on above: One Time for 1 Occur rences starting 03/18/2021 until 03/18/2021 End: 03-18-2021 Urine Drug Screen Urine Drug Screen Lab STAT One Time for 1 Occurrences starting 03/18/2021 until 03/18/2021 [facility] Work Phone: Comment on above: One Time for 1 Occur rences starting 03/18/2021 until 03/18/2021 End: 09-22-2020 XR ABDOMEN (KUB) (SINGLE AP VIEW) XR ABDOMEN (KUB) (SINGLE AP VIEW) Imaging Routine Once for 1 Occurrences starting 09/22/2020 until 09/22/2020 [facility] Work Phone: Comment on above: Once for 1 Occurrenc es starting 09/22/2020 until 09/22/2020 Immunizations Immunization Date Immunization Notes Care Provider Fa [facility] 02-02-2021 influenza virus vacc ine, unspecified formulation Rashaad Smith [employer]ER - DIS[employer]GE [employer]NER Work Phone: [facility] 01-10-2017 pneumococcal polysaccharide vaccine, 23 valent Elizabeth Moura MD Work Phone: [facility] 01-10-2017 tetanus toxoid, redu delia diphtheria toxoid, and acellular pertussis vaccine, adsorbed Elizabeth Moura MD Work Phone: [facility] Work Phone: Payers Date Payer Category Payer Self-pay [id number] 2019 Medicaid [id number] 2019 Medicaid [id number] 2018 Private Health Insurance [id number]. [id number] 2018 Private Health Insurance [facility] xxxxxxxxx 2018-Present [phone] [address] [place] [address] xxxxxxxxx [id number]. [id number] 1955 Unknown [id number] .840.1.173808.3.579.2. 668 1957 Unknown [id number] .16.840.1.614140.3.579.2. 668 Private Health Insurance Unknown [id number] .16.840.1.774735.3.579.2. 462 Unknown [id number] 2.16.840.1.189294.3.579.2. 462 Unknown [id number] 2.16.840.1.338391.3.579.2. 462 Unknown [id number] 2.16.840.1.049484.3.579.2. 462 Unknown [id number] 2.16.840.1.117365.3.579.2. 462 Unknown [id number] 2.16.840.1.497973.3.579.2. 462 Unknown [id number] 2.16.840.1.549786.3.579.2. 462 Unknown [id number] 2.16.840.1.249736.3.579.2. 462 Unknown [id number] 2.16.840.1.708292.3.579.2. 462 Unknown [id number] 2.16.840.1.555115.3.579.2. 462 Unknown [id number] 2.16.840.1.747772.3.579.2. 462 Unknown [id number] 2.16840.1.580622.3.579.2. 462 Unknown [id number] 2.16840.1.446534.3.579.2. 462 Unknown [id number] 2.16840.1.286619.3.579.2. 462 Unknown [id number] 2.16.840.1.034012.3.579.2. 462 Unknown [id number] 2.16.840.1.733899.3.579.2. 462 Unknown [id number] 2.16840.1.458835.3.579.2. 462 Unknown [id number] 2.16.840.1.074122.3.579.2. 462 Unknown [id number] 2.16.840.1.645074.3.579.2. 462 Unknown [id number] 2.16.840.1.275928.3.579.2. 462 Unknown [id number] 2.16.840.1.735531.3.579.2. 462 Unknown [id number] 2.16.840.1.591223.3.579.2. 462 Unknown [id number] 2.16.840.1.896671.3.579.2. 462 Unknown [id number] 2.16840.1.191648.3.579.2. 462 Unknown [id number] 2.16.840.1.322125.3.579.2. 462 Unknown [id number] 2.16.840.1.420606.3.579.2. 462 Unknown [id number] 2.16840.1.407509.3.579.2. 462 Unknown [id number] 2.840.1.876355.3.579.2. 462 Unknown [id number] 2.840.1.890407.3.579.2. 462 Unknown [id number] 2.840.1.089956.3.579.2. 462 Unknown [id number] 2.840.1.220721.3.579.2. 462 Unknown [id number] 2.840.1.899915.3.579.2. 462 Unknown [id number] 2.840.1.068321.3.579.2. 462 Unknown [id number] 2.840.1.337999.3.579.2. 462 Unknown [id number] 2.840.1.078537.3.579.2. 462 Unknown [id number] 2.840.1.788243.3.579.2. 462 Unknown [id number] 2.840.1.819343.3.579.2. 462 Unknown [id number] 2.16840.1.417674.3.579.2. 462 Unknown [id number] 2.16840.1.495303.3.579.2. 462 Unknown [id number] 2.16840.1.870852.3.579.2. 462 Unknown [id number] 2.840.1.612892.3.579.2. 462 Unknown [id number] 2.840.1.526274.3.579.2. 462 Unknown [id number] 2.840.1.257521.3.579.2. 462 Unknown [id number] 2.16840.1.713008.3.579.2. 462 Unknown [id number] 2.840.1.287518.3.579.2. 462 Unknown [id number] 2.840.1.433320.3.579.2. 462 Unknown [id number] 2.840.1.750391.3.579.2. 462 Unknown [id number] 2.840.1.041154.3.579.2. 462 Unknown [id number] 2.840.1.809990.3.579.2. 462 Unknown [id number] 2.840.1.244198.3.579.2. 462 Unknown [id number] 2.840.1.803932.3.579.2. 462 Unknown [id number] 2.840.1.351795.3.579.2. 462 Unknown [id number] 2.840.1.296318.3.579.2. 462 Unknown [id number] 2.840.1.323980.3.579.2. 462 Unknown [id number] 2.840.1.912295.3.579.2. 462 Unknown [id number] 2.840.1.231312.3.579.2. 462 Unknown [id number] 2.840.1.495942.3.579.2. 462 Unknown [id number] 2.840.1.284294.3.579.2. 462 Unknown [id number] 2.840.1.300768.3.579.2. 462 Social History Date Type Detail Facility Tobacco smoking status NHIS Unknown if ever smoked [facility] Work Phone: Start: 1955 Sex Assigned At Not on file [employer] Work Phone: Start: 11-05-2018 End: 06-26-2020 Tobacco smoking status NHIS Former smoker [employer] Work Phone: End: 02-06-2016 History of tobacco use Current smoker [employer] Work Phone: End: 02-06-2016 History of tobacco use Cigar Smoker [employer] Work Phone: Start: 02-05-2018 End: 06-26-2020 Tobacco use and exposure Never used [employer] Work Phone: Start: 06-26-2020 End: 05-20-2022 Alcohol intake Current drinker of alcohol (finding) [employer] Work Phone: Start: 07-08-2018 Alcohol Comment 2 times per wo rk, occasionally liquor [employer] Work Phone: Start: 05-10-2022 End: 05-20-2022 Exposure to SARS-CoV-2 (event) Not sure [employer] Phone: Start: 09-22-2020 End: 05-20-2022 Alcohol intake [facility] Start: 1955 Sex Assigned At Male [facility] End: 02-06-2016 History of tobacco use Cigarette Smoker [facility] Start: 05-20-2022 End: 10-02-2023 Tobacco use panel [facility] How often to you have a drink containing alcohol? Never [facility] How many standard drinks containing alcohol do you have on a typical day? Patient does not drink [facility] Start: 11-29-2021 End: 08-16-2024 Sex Male (finding) [facility] Tobacco smoking status NHIS Unknown if ever smoked [facility] Work Phone: NEGATED: Highlighted rowStart: 05-22-2019 End: 05-22-2019 Alcohol use Alcohol use [facility] Work Phone: NEGATED: Highlighted rowStart: 05-22-2019 End: 05-22-2019 Assertion Current some day smoker [facility] Work Phone: NEGATED: Highlighted rowStart: 05-22-2019 End: 05-22-2019 Details of drug misuse behavior Details of drug misuse behavior [facility] Work Phone: NEGATED: Highlighted rowStart: 05-22-2019 End: 05-22-2019 Tobacco use and exposure Tobacco use and exposure [facility] Work Phone: Clinical Notes 03-18-2021 to 05-03-2024 Telephone Encounter - Aravind Wallace - 05/03/2024 5:29 PM ESTTelephone Encounter - Aravind Wallace - 05/03/2024 5:29 PM Elder Skelton PEELED POTATO INSPECTOR - 11/22/2023 11:30 AM EDTDischarge Instr - CHRIS Note Date & Type Note Facility 05-03-2024 Telephone encounter Note Gissel is calling to let Dr. Burgos know that the medication he prescribed he not certified, she is going to fax the information to the office. [phone] [facility] 05-03-2024 Miscellaneous Notes Gissel is calling to let Dr. Burgos know that the medication he prescribed he not certified, she is going to fax the information to the office. [phone] documented in this encounter [facility] 11-22-2023 History of Presen t illness Narrative Images from the original note were not included. Speech-Language Pathology SPEECH LANGUAGE PATHOLOGY [facility] Modified Barium Swallow Study [...] despite effort. 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 Frequency: Per treating PEELED POTATO INSPECTOR Barriers: large osteophytes, bridging with anterior projection [...] Prior MBSS?: No, unable to locate in [facility] Current Diet: Puree diet with ?liquid (no information from [place]) Textures tested: - thin liquid, (cup edge) - mildly thick liquid, (cup edge) - puree, (teaspoon) Patient position: lateral Past Medical History: Past Medical History: Diagnosis Date TREVER (acute kidney injury) (CMS/HCC) ([facility]) Alcohol abuse 07/08/2018 Anxiety C1 spinal cord injury (CMS/HCC) (HCC) Depression Fall 06/2018 Schizophrenia ([facility]) Past Surgical History: Past Surgical History: Procedure Laterality Date CERVICAL FUSION 07/09/2014 C2-6 cervical fusion GASTROSTOMY TUBE PLACEMENT 07/13/2018 TRACHEOSTOMY 07/13/2018 Admission Diagnosis: Patient Active Problem List Diagnosis Date Noted Respiratory syncytial virus (RSV) 03/22/2021 Hypoxia 03/19/2021 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[facility]) ([facility]) 08/16/2018 Chronic latent schizophrenia ([facility]) 08/15/2018 Prolonged Q-T interval on ECG 08/15/2018 Abdominal wall abscess 08/15/2018 Central cord syndrome ([facility]) ([facility]) 08/15/2018 Respiratory failure after trauma ([facility]) 08/15/2018 Pressure ulcer of sacral region, stage 2 ([facility]) 08/09/2018 Urinary retention 07/28/2018 Acute respiratory failure with hypoxia ([facility]) 07/26/2018 Mild bibasilar atelectasis 07/26/2018 Hospital-acquired pneumonia 07/26/2018 Bilateral pleural effusion 07/26/2018 Ileus ([facility]) ([facility]) 07/23/2018 TREVER (acute kidney injury) ([facility]) 07/23/2018 Hypokalemia 07/21/2018 Vertebral artery occlusion, bilateral 07/11/2018 Vitamin D insufficiency 07/10/2018 Alcohol abuse 07/08/2018 Closed wedge compression fracture of first thoracic vertebra ([facility]) 07/08/2018 Traumatic nondisp spondylolisthesis of C3 vertebra with closed fx, initial encounter ([facility]) 07/08/2018 Closed fracture dislocation of cervical spine ([facility]) 07/08/2018 Pain: Pt denies any current pain. Reason for current admission: Pt with h/o of PEG and trach from 2019. Pt is currently decannulated. 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 Noted very large connective [...] able to eat by mouth. Therapy Time PEELED POTATO INSPECTOR Individual Minutes Time In: 1150 Time Out: 1215 Minutes: 25 ZACHARY Sun documented in this encounter [facility] 10-02-2023 Emergency department Note [facility] at bedside at this time Mami Lantigua RN 10/02/23 1427 [facility] 10-02-2023 Emergency department Note [facility] at bedside at this time Mami Lantigua RN 10/02/23 1427 This RN gave report to Marnie at [facility] at this time Mami Lantigua RN 10/02/23 1358 This RN went to evaluate patient, was on 2L o2 and does not wear at baseline, plan is dc, this RN turned o2 off to trial patient, spo2 monitor on Mami Lantigua RN 10/02/[address] cart Eloisa Alfaro RN 10/02/23 1043 Emergency Department Encounter [facility] ED Patient: Kathya Hooper : 1955 Date [...] are mis-transcribed.) Fei Farooq MD Acute Care [facility] Fei Farooq MD 10/02/23 1129 Pt was brought in via [facility] from [facility] for Left sided facial droop. Per EMS nurse is new and does not know patient very well but he is A&O x 2 at baseline. Per EMS the nurse states it was 20 mins ago. Contacted nurse that was caring for him and she states that was the first time she has seen him for that day, beam worker did not report any problems. EMS states [...] 131. documented in this encounter [facility] 10-02-2023 Emergency department Note This RN gave report to Marnie at [facility] at this time Mami Lantigua RN 10/02/23 1358 [facility] 10-02-2023 Emergency department Note This RN went to evaluate patient, was on 2L o2 and does not wear at baseline, plan is dc, this RN turned o2 off to trial patient, spo2 monitor on Mami Lantigua RN 10/02/23 1325 [facility] 10-02-2023 Emergency department Note Pt to ct via cart Eloisa Alfaro RN 10/02/23 1043 [facility] 10-02-2023 Emergency department Triage note Pt was brought in via [facility] from [facility] for Left sided facial droop. Per EMS nurse is new and does not know patient very well but he is A&O x 2 at baseline. Per EMS the nurse states it was 20 mins ago. Contacted nurse that was caring for him and she states that was the first time she has seen him for that day, beam worker did not report any problems. EMS states [...] Hx of schizophrenia. BS 131. [facility] 10-02-2023 Physician Emergency department Note Emergency Department Encounter [facility] ED Patient: Kathya Hooper : 1955 Date [...] occasionally words are mis-transcribed.) Fei Farooq MD [facility] Fei Farooq MD 10/02/23 1129 [employer] Work Phone: 05-20-2022 Emergency department Note Report called to skilled nursing. Copy of Xray report sent with discharge packet Gary Ghosh RN 05/20/222007 [employer] 05-20-2022 Emergency department Note Report called to skilled nursing. Copy of Xray report sent with discharge packet Gary Ghosh RN 05/20/222007 Emergency Department Encounter [facility] ED Patient: Kathya Hooper : 1955 Date of Evaluation: 05/20/2022 ED Supervising Physician: Abelardo Rios DO I independently examined and evaluated Kathya Hooper. This will serve as my Supervisory note as the screen operator of record and shared attestation. I did perform a substantive portion of the visit including all aspects of the Medical Decision Making. I wore appropriate PPE for the entirety of this encounter. In brief, Kathya Hooper is a 67 y.o. male that presents to the emergency department after his G-tube fell out today at the skilled nursing. Upon inspection of the G-tube, it appears [...] tube which fell out today at the skilled nursing. Tube was easily replaced in the emergency room. Will order KUB with dye study to confirm placement and discharge back to the skilled nursing. X-ray confirms due to position within the [...] for clarification.) Abelardo Rios DO Acute Care [facility] Abelardo Rios DO 05/20/222014 documented in this encounter [facility] 05-20-2022 Miscellaneous Notes Associated Order(s): Feeding Tube Replacement Procedure Feeding Tube Replacement Performed by: Dejah Hazel DO Authorized by: Abelardo Rios DO Consent: Consent obtained: Verbal Consent given by: Patient [place] protocol: Patient identity confirmed: Verbally with patient [...] DO Resident 05/20/221931 documented in this encounter [facility] 05-20-2022 Note Associated Order(s): Feeding Tube Replacement Procedure Feeding Tube Replacement Performed by: Dejah Hazel DO Authorized by: Abelardo Rios DO Consent: Consent obtained: Verbal Consent given by: Patient [place] protocol: Patient identity confirmed: Verbally with patient [...] immediate complications Dejah Hazel DO Resident 05/20/221931 [facility] Work Phone: 05-20-2022 Note Associated Order(s): Feeding Tube Replacement Procedure Feeding Tube Replacement Performed by: Dejah Hazel DO Authorized by: Abelardo Rios DO Consent: Consent obtained: Verbal Consent given by: Patient [place] protocol: Patient identity confirmed: Verbally with patient [...] immediate complications Dejah Hazel DO Resident 05/20/221931 [employer] Phone: 05-20-2022 Physician Emergency department Note Emergency Department Encounter [facility] ED Patient: Kathya Hooper : 1955 Date of Evaluation: 05/20/2022 ED Supervising Physician: Abelardo Rios DO I independently examined and evaluated Kathya Hooper. This will serve as my Supervisory note as the screen operator of record and shared attestation. I did perform a substantive portion of the visit including all aspects of the Medical Decision Making. I wore appropriate PPE for the entirety of this encounter. In brief, Kathya Hooper is a 67 y.o. male that presents to the emergency department after his G-tube fell out today at the skilled nursing. Upon inspection of the G-tube, it appears [...] tube which fell out today at the skilled nursing. Tube was easily replaced in the emergency room. Will order KUB with dye study to confirm placement and discharge back to the skilled nursing. X-ray confirms due to position within the [...] [employer] Abelardo Rios DO 05/20/222014 [facility] [employer] Phone: 03-24-2021 Note Hospitalist Discharg e Summary [...] Pneumonia. Treated with antibiotics. He resides in [facility]. He was stablized and discharged [...] Tomography ACCESSION EXAM DATE/TIME PROCEDURE ORDERING PROVIDER [id number] 03/18/2021 16:26 EST CTA Head/Neck w/ + w/o [id number] alyson ARCHIBALD CPT code 42484 77165 Q9967 Reason For Exam (CTA Head/Neck w/ + w/o contrast) AMS, dysphasia and ?aphasia possibly since yesterday- very poor historian from skilled nursing w/ unclear prior deficits - here w/ [...] airway at the (more content not included)... [facility] 03-24-2021 Hospital course Narrative Hospitalist Discharge [...] Pneumonia. Treated with antibiotics. He resides in [facility]. He was stablized and discharged [...] Tomography ACCESSION EXAM DATE/TIME PROCEDURE ORDERING PROVIDER [id number] 03/18/2021 16:26 EST CTA Head/Neck w/ + w/o [id number] -alyson CASTRO CPT code 02088 25530 Q9967 Reason For Exam (CTA Head/Neck w/ + w/o contrast) AMS, dysphasia and ?aphasia possibly since yesterday- very poor historian from skilled nursing w/ unclear prior deficits - here w/ [...] Tomography ACCESSION EXAM DATE/TIME PROCEDURE ORDERING PROVIDER [id number] 03/18/2021 16:27 EST CTA Chest w/ + w/o 120792 Alyson CASTRO CPT code 92716 Q9967 Reason For Exam (CTA Chest w/ + w/o Contrast) pulmonary embolus Report CTA chest with and without contrast History: chest pain Protocol: 1 mm images after IV contrast, 3D rendering performed by wi on a separate workstation No evidence of [...] Radiology ACCESSION EXAM DATE/TIME PROCEDURE ORDERING PROVIDER [id number] 03/19/2021 17:10 EST CR Chest Portable [id number] BRADY WILKINS CPT code 38141 Reason For Exam (CR Chest Portable) hypoxia [...] Radiology ACCESSION EXAM DATE/TIME PROCEDURE ORDERING PROVIDER [id number] 03/18/2021 15:30 EST CR Chest Portable [id number] BOO ARCHIBALD CPT code 64147 Reason For Exam (CR Chest Portable) sob, [...] Contact Information Primary Emergency Contact: Jason Hooper [facility] Relation: Parent Past Surgical History: Past Surgical History: Procedure Laterality Date CERVICAL FUSION 07/09/2014 C2-6 cervical fusion GASTROSTOMY TUBE PLACEMENT 07/13/2018 TRACHEOSTOMY 07/13/2018 Immunization History: Immunization History Administered Date(s) Administered Pneumococcal Polysaccharide ([id number]) 01/10/2017 Tdap (Boostrix, Adacel) 01/10/2017 Active Problems: Patient Active Problem List Diagnosis Code Closed fracture dislocation of cervical spine ([facility]) S12.9XXA Traumatic nondisp spondylolisthesis of C3 vertebra with closed fx, initial encounter ([facility]) S12.231A Closed wedge compression fracture of first thoracic vertebra ([facility]) S22.010A Central cord syndrome ([facility]) S14.129A Chronic latent schizophrenia ([facility]) F21 Alcohol abuse F10.10 Respiratory failure after trauma ([facility]) J96.90 Vitamin D insufficiency E55.9 Vertebral artery occlusion, 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 Hypokalemia E87.6 Ileus ([facility]) K56.7 TREVER (acute kidney injury) ([facility]) N17.9 Acute respiratory failure with hypoxia ([facility]) J96.01 Hospital-acquired pneumonia J18.9, Y95 Bilateral pleural effusion J90 Mild bibasilar atelectasis J98.11 Urinary retention R33.9 Prolonged Q-T interval on ECG R94.31 Pressure ulcer of sacral region, stage 2 ([facility]) L89.152 Abdominal wall abscess L02.211 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[facility]) K65.4 Hypoxia R09.02 Respiratory syncytial [...] MENTAL STATUS:} IV Access: { CHRIS IV ACCESS:135518207} Nursing Mobility/ADLs: Walking {CHP DME ADLs:426060169} Transfer {CHP DME ADLs:655957026} Bathing {CHP DME ADLs:916812289} Dressing {CHP DME ADLs:979681099} Toileting {CHP DME ADLs:616384630} Feeding {CHP DME ADLs:380502896} Garnett Machine Operator {CHP DME ADLs:034757072} Med Delivery { CHRIS MED Delivery:958521572} Wound Care Documentation and Therapy: Negative Pressure Wound Therapy Abdomen Left (Active) Number of days: 947 Wound Sacrum Mid (Active) Number of days: Elimination: Continence: Bowel: {YES / NO:} Bladder: {YES / NO:} Urinary Catheter: {Urinary Catheter:029778056} Colostomy/Ileostomy/Ileal Conduit: {YES / NO:} Date of Last BM: No intake or output data in the 24 hours ending 03/24/21 1013 I/O last 3 completed shifts: In: 660 [NG/GT:660] Out: - Safety Concerns: { CHRIS Safety Concerns:200259462} Impairments/Disabilities: { CHRIS Impairments/Disabilities:95850197 3} Nutrition Therapy: Current Nutrition Therapy: { CHRIS Diet List:998355525} Routes of Feeding: {P DME Other Feedings:542344004} Liquids: {Bath Steward liquid thickness:09513} Daily Fluid Restriction: {CHP DME Yes amt example:042546325} Last Modified Barium Swallow with Video (Video Swallowing Test): {Done Not Done Date:281825046} Treatments at the Time of Hospital Discharge: Respiratory Treatments: Oxygen Therapy: {Therapy; copd oxygen:12406} Ventilator: { CC Vent List:587180783} Rehab Therapies: {THERAPEUTIC INTERVENTION:2288067828} Weight Bearing Status/Restrictions: { CC Weight Bearin} Other Medical Equipment (for information only, NOT a DME order): {EQUIPMENT:963347090} Other Treatments: Patient's personal belongings (please select all that are sent with patient): {CHP DME Belongings:423083993} RN SIGNATURE: {Esignature:383358470} CASE MANAGEMENT/SOCIAL WORK SECTION Inpatient Status Date: Readmission Risk Assessment Score: Readmission Risk Risk of Unplanned Readmission: 25 Discharging to Facility/ Agency Name: [facility] Address: [address], [facility] [address] Dialysis Facility (if applicable) Name: Address: Dialysis Schedule: Phone: Fax: Environmental Management Specialist/Pet Groomer signature: PHYSICIAN SECTION Prognosis: Good Condition at Discharge: Stable Rehab Potential (if transferring to Rehab): Good Recommended Labs or Other Treatments After Discharge: Physician Certification: I certify the above information and transfer of Kathya Hooper is necessary for the continuing treatment of the diagnosis listed and that he requires Long-Term Facility for greater 30 days. Update Admission [...] loss Fluid Accumulation: No significant fluid accumulation Vamp Creaser Strength: Not Performed Estimated Daily Nutrient Needs: Energy (kcal): 5086-3813 (25-30 kcal/kg IBW); Weight Used for Energy Requirements: [place] (86.2 kg) Protein (g): 86-103 (1.0-1.2 g protein/kg IBW); Weight Used for Protein Requirements: [place] (86.2 kg) Fluid (ml/day): per MD. At [...] on 03/02/21, October weight= 185.5# on 01/29/21) [place] Body Weight: 190 lbs; % [place] Body Weight 97.8 % BMI: 24 Adjusted [...] Skin, Weight Discharge Planning: Enteral Nutrition Contact: *[phone] Images from the original note were not included. Hospitalist Progress Note 03/23/2021 9:27 AM Subjective: Admit Date: 03/19/2021 PCP: No primary care provider on file. Room#: 133/2334 Patient seen and examined. Laying in bed. [...] from the original note were not included. [facility] [place] [address] [place] [address] Patient - Kathya Hooper, Age - 66 y.o. - 1955 Room Number - [facility] Consulting - Rafa Michel MD Primary Care Physician - No primary care provider on file. [facility] # - [id number] Date of Admission - 03/19/2021 3:52 PM [...] bed. Pt thought there was a copy center associate in the corner of his room. When pt got his meds he calmed down. Pt now watching tv. Call light within reach. Bed alarm on. Images from the original note were not included. [facility] [place] [facility] [place] [address] [place] [id number] Patient - Kathya Hooper, Age - 66 y.o. - 1955 Room Number - 465/4651 Consulting - Rafa Michel MD Primary Care Physician - No primary care provider on file. [facility] # - [id number] Date of Admission - 03/19/2021 3:52 PM [...] No primary care provider on file. Room#: 465/4654 Patient seen and examined. Laying in bed. [...] 163 136* 158 BMP: Recent Labs 03/19/21170903/20/213 03/21/21155 NA 137 137 136 K 4.1 3.9 [...] y.o. - 1955 Room Number - 465/4651 [facility] - [id number] [facility] # - [id number] Date of Admission - 03/19/2021 3:52 PM [...] Date 03/21/21 0000 - 03/21/21 2359 Shift 5060-1822 8291-5504 8866-5458 24 Hour Total INTAKE NG/GT(mL/kg) 542(6.4) 542(6.4) [...] included. Hospitalist Progress Note 03/21/2021 9:41 AM [phone]: Please page me for patient care issues. [phone]: Please page [facility] night Hospitalist for any issues. Subjective: Admit Date: 03/19/2021 PCP: No primary care provider on file. Room#: 465/0771 Interval History: Lethargic, hard to arouse this [...] Trach PEG 07/13/2018. Presented from SNF to [facility] ED with worsening SOB. Evaluated [...] loss Fluid Accumulation: No significant fluid accumulation Vamp Creaser Strength: Not Performed Estimated Daily Nutrient Needs: Energy (kcal): 3790-2053 (25-30 kcal/kg IBW); Weight Used for Energy Requirements: [place] (86.2 kg) Protein (g): 86-103 (1.0-1.2 g protein/kg IBW); Weight Used for Protein Requirements: [place] (86.2 kg) Fluid (ml/day): per MD. At facility receivin mL free water daily from EN and flushes; Method Used for Fluid Requirements: Other (Comment) Nutrition Related Findings: Massimo score= 15. No skin breakdown or edema noted. S/p Trach/PEG, per PEELED POTATO INSPECTOR note, does not take any food, drink [...] on 03/02/21, October weight= 185.5# on 01/29/21) [place] Body Weight: 190 lbs; % [place] Body Weight 97.8 % BMI: 23.9 BMI [...] Nutrition Contact: 2430 Speech Language Pathology Facility/Department: [facility] TELEMET[facility] CLINICAL BEDSIDE SWALLOW EVALUATION [...] 03/19/21 Date of Eval: 03/20/2021 Evaluating Therapist: Mihaela L Skinner, PEELED POTATO INSPECTOR Pain: Pain Assessment Pain Level: 0 Reason [...] states that she is the only family [phone] Images from the original note were not included. Hospitalist Progress Note 03/20/2021 9:58 AM [phone]: Please page me for patient care issues. [phone]: Please page [facility] night Hospitalist for any issues. Subjective: Admit Date: 03/19/2021 PCP: No primary care provider on file. Room#: 465/4652 Interval History: He continues to have cough [...] planning: TBD . documented in this encounter [facility] Work Phone: 03-18-2021 History of Presen t illness Narrative NIF -20 documented in this encounter [facility] Work Phone: 03-18-2021 Hospital Discharg Boo Stringer MD - 03/18/2021 Mr. Hooper was seen at the [facility] emergency department for low oxygen levels. [...] cannot be sent through Care Everywhere.Viral Infections (Georgian)documented in this encounter [facility] Work Phone: Evaluation note Diagnosis PEG tube malfunction (HCC)- Primary Mechanical complication of gastrostomy documented in this encounter [facility] Work Phone: Evaluation note* Diagnosis Feeding tube dysfunction, initial encounter- Primary documented in this encounter [facility] Work Phone: Evaluation note* Diagnosis Respiratory syncytial virus (RSV)- Primary Hypoxia Hypoxemia documented in this encounter [facility] Work Phone: Evaluation note* Diagnosis Respiratory syncytial virus (RSV)- Primary Hypoxia Hypoxemia documented in this encounter [facility] Work Phone: Evaluation note* Diagnosis PEG tube malfunction (HCC)- Primary Mechanical complication of gastrostomy documented in this encounter [facility] Work Phone: Evaluation note* Diagnosis Contusion of right hip, initial encounter- Primary documented in this encounter [facility] Work Phone: Evaluation noteNo assessment information available [facility] Work Phone: Evaluation note* Diagnosis Dyspnea, unspecified type- Primary documented in [facility]* Diagnosis Dysphagia, oropharyngeal phase Feeding difficulties Feeding difficulties and mismanagement documented in this encounter [facility]* Diagnosis Dysphagia, oropharyngeal phase- Primary Feeding difficulties Feeding difficulties and mismanagement Dysphagia, oropharyngeal phase Feeding difficulties Feeding difficulties and mismanagement [facility] Diagnosis Dislodged gastrostomy tube- Primary documented in this encounter [facility]* Diagnosis Chronic cough Cough documented in this encounter [facility]* Diagnosis Chronic cough- Primary Cough Chronic cough Cough [facility]* Attachments The following attachments cannot be sent through Care Everywhere. * PEG (Percutaneous Endoscopic Gastrostomy): Post-op (Georgian) documented in this [facility] Work Phone: Hospital Discharge instructions* Attachments The following attachments cannot be sent through Care Everywhere. * Feeding Tube: General Info (Georgian) [facility]: Hospital Discharge instructions* Instructions* Mary Cochran PA-C - 05/15/2021 Please return to the ED if you have any new or worsening symptoms. [facility] Work Phone: Hospital Discharge instructions* Attachments The following attachments cannot be sent through Care Everywhere. * Hip Pain (Georgian) * Contusion (Georgian) [facility]: Hospital Discharge instructions* Attachments The following attachments cannot be sent through Care Everywhere. * Shortness of Breath (Dyspnea) Discharge Instructions (Georgian) [facility]* Attachments The following attachments cannot be sent through Care Everywhere. * How to Care for Your Gastrostomy Tube (Georgian) documented in [facility] for referral (narrative)No reason for referral information availableWTrinity Health System Work Phone: Reason for visit Narrative* Imaging (Routine) - Closed Specialty Diagnoses / Procedures Referred By Contac t Referred To Contact Radiology Diagnoses Chronic cough Procedures CT chest wo IV contrast Rashaad Smith APRN - SIM [address] [address] Phone: tel: fax: Referral ID Status Reason Start Date Expiration Date Visits Re quested Visits Authorized [id number] Closed 06/12/2024 06/12/2025 1 1 [facility] Summary Purpose Family History No Family History Records FoundNo Family History Records FoundThere may be information available, but it has not been provided by the sender.No Family History Records FoundNo Family History Records FoundNo Family History Records FoundNo Family History Records Found Advance Directives No Advanced Directives Records FoundDocuments on File Type Date Recorded Patient Fine Grade Operator Expl anation ACP-Advance Directive ACP-Advance Directive 08/07/2018 1:53 PM ACP-Power of Fitting Supervisor Latest Code Status on File Code Status Date Activated Date Inactivated Comments Full Code 08/15/2018 8:27 PM 08/22/2018 4:31 PM Full Code 08/15/2018 8:12 PM 08/15/2018 8:27 PM Full Code 07/08/2018 8:28 PM 08/01/2018 2:39 PM Documents on File Type Date Recorded Patient Fine Grade Operator Expl anation ACP-Advance Directive ACP-Power of Fitting Supervisor ACP-Advance Directive 08/07/2018 1:53 PM Latest Code Status on File Code Status Date Activated Date Inactivated Comments Full Code 03/20/2021 12:17 AM Full Code 08/15/2018 8:27 PM 08/22/2018 4:31 PM Documents on File Type Date Recorded Patient Fine Grade Operator Expl anation ACP-Advance Directive ACP-Power of Fitting Supervisor ACP-Advance Directive 03/26/2021 9:48 AM ACP-Advance Directive 08/07/2018 1:53 PM Latest Code Status on File Code Status Date Activated Date Inactivated Comments Full Code 03/20/2021 12:17 AM 03/24/2021 3:23 PM Documents on File Type Date Recorded Patient Fine Grade Operator Expl anation Advance Directives and Livin g Will Advance Directives and Livin g Will 08/07/2018 1:53 PM Power of Fitting Supervisor Documents on File Type Date Recorded Patient Fine Grade Operator Expl anation Advance Directives and Livin g Will 05/23/2022 10:48 AM Advance Directives and Livin g Will 03/19/2021 Documents on File Type Date Recorded Patient Fine Grade Operator Expl anation Advance Directives and Living Will 03/19/2021 Documents on File Type Date Recorded Patient Fine Grade Operator Expl 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 * Feeding Tube: General Info (Georgian) documented in this encounter Assessments Diagnosis PEG [...] Complaint and Reason for Visit Chief Complaint SENIOR CARE LABWORK SENIOR CARE LAB WORK SENIOR CARE LABWORK SENIOR CARE LABWORK SENIOR CARE LABWORK SENIOR CARE LAB WORK SENIOR CARE LABWORK SENIOR CARE LABWORK SENIOR CARE LABWORK SENIOR CARE LABWORK SENIOR CARE LABWORK SENIOR CARE LAB WORK SENIOR CARE LABWORK NURING HOME LABWORK SENIOR CARE LABWORK SENIOR CARE LAB WORK SENIOR CARE LABWORK Chief Complaint SENIOR CARE LABWORK SENIOR CARE LABWORK SENIOR CARE LABWORK SENIOR CARE LAB WORK SENIOR CARE LABWORK NURING HOME LABWORK SENIOR CARE LABWORK SENIOR CARE LAB WORK SENIOR CARE LABWORK SENIOR CARE LABWORK SENIOR CARE LAB WORK SENIOR CARE LAB WORK SENIOR CARE BLOOD WORK SENIOR CARE LABWORK SENIOR CARE LAB WORK Chief Complaint SENIOR CARE LABWORK SENIOR CARE LABWORK SENIOR CARE LAB WORK SENIOR CARE LABWORK NURING HOME LABWORK SENIOR CARE LABWORK SENIOR CARE LAB WORK SENIOR CARE LABWORK SENIOR CARE LABWORK SENIOR CARE LAB WORK SENIOR CARE LAB WORK SENIOR CARE BLOOD WORK SENIOR CARE LABWORK LABWORK LABWORK SENIOR CARE LAB WORK Chief Complaint SENIOR CARE LABWORK SENIOR CARE LAB WORK SENIOR CARE LABWORK NURING HOME LABWORK SENIOR CARE LABWORK SENIOR CARE LAB WORK SENIOR CARE LABWORK SENIOR CARE LABWORK SENIOR CARE LAB WORK SENIOR CARE LAB WORK SENIOR CARE BLOOD WORK SENIOR CARE LABWORK LABWORK LABWORK SENIOR CARE LAB WORK Chief Complaint SENIOR CARE LAB WOR K SENIOR CARE LABWORK NURING HOME LABWORK SENIOR CARE LABWORK SENIOR CARE LAB WORK SENIOR CARE LABWORK SENIOR CARE LABWORK SENIOR CARE LAB WORK SENIOR CARE LAB WORK SENIOR CARE BLOOD WORK SENIOR CARE LABWORK LABWORK LABWORK SENIOR CARE LAB WORK Chief Complaint SENIOR CARE LAB WOR K SENIOR CARE LABWORK NURING HOME LABWORK SENIOR CARE LABWORK SENIOR CARE LAB WORK SENIOR CARE LABWORK SENIOR CARE LABWORK SENIOR CARE LAB WORK SENIOR CARE LAB WORK SENIOR CARE BLOOD WORK SENIOR CARE LABWORK LABWORK LABWORK SENIOR CARE LAB WORK LABWORK SENIOR CARE LABWORK Chief Complaint SENIOR CARE LABWORK NURING HOME LABWORK SENIOR CARE LABWORK SENIOR CARE LAB WORK SENIOR CARE LABWORK SENIOR CARE LABWORK SENIOR CARE LAB WORK SENIOR CARE LAB WORK SENIOR CARE BLOOD WORK SENIOR CARE LABWORK LABWORK LABWORK SENIOR CARE LAB WORK LABWORK SENIOR CARE LABWORK SENIOR CARE LAB WORK Chief Complaint SENIOR CARE BLOOD W ORK SENIOR CARE LABWORK SENIOR CARE LABWORK LABWORK LABWORK SENIOR CARE LAB WORK LABWORK SENIOR CARE LABWORK SENIOR CARE LAB WORK LABWORK SENIOR CARE LAB WORK SENIOR CARE LAB WORK LABWORK SENIOR CARE LAB WORK Chief Complaint SENIOR CARE BLOOD W ORK SENIOR CARE LABWORK SENIOR CARE LABWORK LABWORK LABWORK SENIOR CARE LAB WORK LABWORK SENIOR CARE LABWORK SENIOR CARE LAB WORK LABWORK SENIOR CARE LAB WORK SENIOR CARE LAB WORK LABWORK SENIOR CARE LAB WORK LABWORK Chief Complaint LABWORK LABWORK SENIOR CARE LAB WORK LABWORK SENIOR CARE LABWORK SENIOR CARE LAB WORK LABWORK SENIOR CARE LAB WORK SENIOR CARE LAB WORK LABWORK SENIOR CARE LAB WORK LABWORK SENIOR CARE LAB WORK Chief Complaint LABWORK SENIOR CARE LAB WORK LABWORK SENIOR CARE LABWORK SENIOR CARE LAB WORK LABWORK SENIOR CARE LAB WORK SENIOR CARE LAB WORK LABWORK SENIOR CARE LAB WORK LABWORK SENIOR CARE LAB WORK SENIOR CARE LABWORK Chief Complaint LABWORK SENIOR CARE LABWORK SENIOR CARE LAB WORK LABWORK SENIOR CARE LAB WORK SENIOR CARE LAB WORK LABWORK SENIOR CARE LAB WORK LABWORK SENIOR CARE LAB WORK SENIOR CARE LABWORK SENIOR CARE LABWORK LABWORK SENIOR CARE LAB WORK Chief Complaint SENIOR CARE LAB WOR K LABWORK SENIOR CARE LAB WORK SENIOR CARE LAB WORK LABWORK SENIOR CARE LAB WORK LABWORK SENIOR CARE LAB WORK SENIOR CARE LABWORK SENIOR CARE LABWORK LABWORK SENIOR CARE LAB WORK SENIOR CARE LAB WORK Chief Complaint SENIOR CARE LAB WOR K SENIOR CARE LAB WORK LABWORK SENIOR CARE LAB WORK LABWORK SENIOR CARE LAB WORK SENIOR CARE LABWORK SENIOR CARE LABWORK LABWORK SENIOR CARE LAB WORK SENIOR CARE LAB WORK LABWORK SENIOR CARE LAB WORK Chief Complaint SENIOR CARE LAB WOR K LABWORK SENIOR CARE LAB WORK LABWORK SENIOR CARE LAB WORK SENIOR CARE LABWORK SENIOR CARE LABWORK LABWORK SENIOR CARE LAB WORK SENIOR CARE LAB WORK LABWORK SENIOR CARE LAB WORK SENIOR CARE LAB WORK Chief Complaint SENIOR CARE LAB WOR K LABWORK SENIOR CARE LAB WORK SENIOR CARE LABWORK SENIOR CARE LABWORK LABWORK SENIOR CARE LAB WORK SENIOR CARE LAB WORK LABWORK SENIOR CARE LAB WORK LABWORK SENIOR CARE LAB WORK SENIOR CARE LAB WORK SENIOR CARE LABWORK SENIOR CARE LABWORK Chief Complaint LABWORK SENIOR CARE LAB WORK SENIOR CARE LABWORK SENIOR CARE LABWORK LABWORK SENIOR CARE LAB WORK SENIOR CARE LAB WORK LABWORK SENIOR CARE LAB WORK LABWORK SENIOR CARE LAB WORK SENIOR CARE LAB WORK SENIOR CARE LABWORK LABWORK SENIOR CARE LABWORK Chief Complaint LABWORK SENIOR CARE LAB WORK SENIOR CARE LAB WORK LABWORK SENIOR CARE LAB WORK LABWORK SENIOR CARE LAB WORK SENIOR CARE LAB WORK SENIOR CARE LABWORK LABWORK SENIOR CARE LABWORK SENIOR CARE LAB WORK Chief Complaint SENIOR CARE LAB WOR K LABWORK SENIOR CARE LAB WORK SENIOR CARE LAB WORK SENIOR CARE LABWORK LABWORK SENIOR CARE LABWORK SENIOR CARE LAB WORK LABWORK LABWORK LABWORK LABWORK SENIOR CARE LABWORK SENIOR CARE LAB WORK LABWORK LABWORK Chief Complaint LABWORK SENIOR CARE LAB WORK SENIOR CARE LAB WORK SENIOR CARE LABWORK LABWORK SENIOR CARE LABWORK SENIOR CARE LAB WORK LABWORK LABWORK LABWORK LABWORK SENIOR CARE LABWORK SENIOR CARE LAB WORK LABWORK LABWORK SENIOR CARE LABWORK Chief Complaint SENIOR CARE LAB WOR K SENIOR CARE LAB WORK SENIOR CARE LABWORK LABWORK SENIOR CARE LABWORK SENIOR CARE LAB WORK LABWORK LABWORK LABWORK LABWORK SENIOR CARE LABWORK SENIOR CARE LAB WORK LABWORK LABWORK SENIOR CARE LABWORK SENIOR CARE LAB WORK Chief Complaint SENIOR CARE LABWORK LABWORK SENIOR CARE LABWORK SENIOR CARE LAB WORK LABWORK LABWORK LABWORK LABWORK SENIOR CARE LABWORK SENIOR CARE LAB WORK LABWORK LABWORK SENIOR CARE LABWORK SENIOR CARE LAB WORK SENIOR CARE LABWORK SENIOR CARE LAB WORK Chief Complaint LABWORK SENIOR CARE LABWORK SENIOR CARE LAB WORK LABWORK LABWORK LABWORK LABWORK SENIOR CARE LABWORK SENIOR CARE LAB WORK LABWORK LABWORK SENIOR CARE LABWORK SENIOR CARE LAB WORK SENIOR CARE LABWORK LABWORK SENIOR CARE LAB WORK Chief Complaint LABWORK LABWORK LABWORK LABWORK SENIOR CARE LABWORK SENIOR CARE LAB WORK LABWORK LABWORK SENIOR CARE LABWORK [facility] C[facility] LABWORK LABWORK [facility] WORK LABWORK [facility] CARE LABWORK Chief Complaint LABWORK SENIOR CARE LABWORK S[facility] C[facility] LAB WORK LABWORK LABWORK SENIOR CARE LABWORK SENIOR CARE LAB WORK SENIOR CARE LABWORK LABWORK SENIOR CARE LAB WORK LABWORK SENIOR CARE LABWORK LABWORK LABWORK Chief Complaint SENIOR CARE LABWORK SENIOR CARE LAB WORK LABWORK LABWORK SENIOR CARE LABWORK SENIOR CARE LAB WORK SENIOR CARE LABWORK LABWORK SENIOR CARE LAB WORK LABWORK SENIOR CARE LABWORK LABWORK LABWORK LABWORK SENIOR CARE LAB WORK SENIOR CARE LAB WORK SENIOR CARE LABWORK Chief Complaint SENIOR CARE LABWORK SENIOR CARE LAB WORK LABWORK LABWORK SENIOR CARE LABWORK SENIOR CARE LAB WORK SENIOR CARE LABWORK LABWORK SENIOR CARE LAB WORK LABWORK SENIOR CARE LABWORK LABWORK LABWORK LABWORK SENIOR CARE LAB WORK SENIOR CARE LAB WORK SENIOR CARE LABWORK SENIOR CARE LABWORK Chief Complaint LABWORK LABWORK SENIOR CARE LABWORK SENIOR CARE LAB WORK SENIOR CARE LABWORK LABWORK SENIOR CARE LAB WORK LABWORK SENIOR CARE LABWORK LABWORK LABWORK LABWORK SENIOR CARE LAB WORK SENIOR CARE LAB WORK SENIOR CARE LABWORK SENIOR CARE LABWORK SENIOR CARE LAB WORK LABWORK Chief Complaint SENIOR CARE LABWORK SENIOR CARE LAB WORK SENIOR CARE LABWORK LABWORK SENIOR CARE LAB WORK LABWORK SENIOR CARE LABWORK LABWORK LABWORK LABWORK SENIOR CARE LAB WORK SENIOR CARE LAB WORK SENIOR CARE LABWORK SENIOR CARE LABWORK SENIOR CARE LAB WORK LABWORK SENIOR CARE LABWORK Chief Complaint SENIOR CARE LABWORK LABWORK SENIOR CARE LAB WORK LABWORK SENIOR CARE LABWORK LABWORK LABWORK LABWORK SENIOR CARE LAB WORK SENIOR CARE LAB WORK SENIOR CARE LABWORK SENIOR CARE LABWORK SENIOR CARE LAB WORK LABWORK SENIOR CARE LABWORK SENIOR CARE LAB WORK Chief Complaint LABWORK SENIOR CARE LABWORK LABWORK LABWORK LABWORK SENIOR CARE LAB WORK SENIOR CARE LAB WORK SENIOR CARE LABWORK SENIOR CARE LABWORK SENIOR CARE LAB WORK LABWORK SENIOR CARE LABWORK SENIOR CARE LAB WORK SENIOR CARE LABWORK SENIOR CARE LAB WORK Chief Complaint LABWORK SENIOR CARE LABWORK SENIOR CARE LAB WORK SENIOR CARE LABWORK SENIOR CARE LAB WORK SENIOR CARE LABWORK SENIOR CARE LABWORK SENIOR CARE LABWORK SENIOR CARE LABWORK SENIOR CARE LAB WORK LABWORK LABWORK SENIOR CARE LABWORK Chief Complaint SENIOR CARE LABWORK SENIOR CARE LAB WORK SENIOR CARE LABWORK SENIOR CARE LABWORK SENIOR CARE LABWORK SENIOR CARE LABWORK SENIOR CARE LAB WORK LABWORK LABWORK SENIOR CARE LABWORK LABWORK SENIOR CARE LAB WORK SENIOR CARE LAB WORK Chief Complaint SENIOR CARE LABWORK SENIOR CARE LABWORK SENIOR CARE LABWORK SENIOR CARE LABWORK SENIOR CARE LAB WORK LABWORK LABWORK SENIOR CARE LABWORK LABWORK SENIOR CARE LAB WORK SENIOR CARE LAB WORK SENIOR CARE LABWORK SENIOR CARE LABWORK SENIOR CARE LAB WORK SENIOR CARE LAB WORK Chief Complaint SENIOR CARE LABWORK SENIOR CARE LABWORK SENIOR CARE LABWORK SENIOR CARE LAB WORK LABWORK LABWORK SENIOR CARE LABWORK LABWORK SENIOR CARE LAB WORK SENIOR CARE LAB WORK SENIOR CARE LABWORK SENIOR CARE LABWORK SENIOR CARE LAB WORK SENIOR CARE LAB WORK Chief Complaint SENIOR CARE LABWORK SENIOR CARE LABWORK SENIOR CARE LABWORK SENIOR CARE LAB WORK LABWORK LABWORK SENIOR CARE LABWORK LABWORK SENIOR CARE LAB WORK SENIOR CARE LAB WORK SENIOR CARE LABWORK SENIOR CARE LABWORK SENIOR CARE LAB WORK SENIOR CARE LAB WORK SENIOR CARE LABWORK LABWORK Chief Complaint SENIOR CARE LAB WOR K LABWORK LABWORK SENIOR CARE LABWORK LABWORK SENIOR CARE LAB WORK SENIOR CARE LAB WORK SENIOR CARE LABWORK SENIOR CARE LABWORK SENIOR CARE LAB WORK SENIOR CARE LAB WORK SENIOR CARE LABWORK LABWORK SENIOR CARE LAB WORK LABWORK Chief Complaint SENIOR CARE LAB WOR K LABWORK LABWORK SENIOR CARE LABWORK LABWORK SENIOR CARE LAB WORK SENIOR CARE LAB WORK SENIOR CARE LABWORK SENIOR CARE LABWORK SENIOR CARE LAB WORK SENIOR CARE LAB WORK SENIOR CARE LABWORK LABWORK SENIOR CARE LAB WORK LABWORK SENIOR CARE LABWORK SENIOR CARE LAB WORK Chief Complaint LABWORK LABWORK SENIOR CARE LABWORK LABWORK SENIOR CARE LAB WORK SENIOR CARE LAB WORK SENIOR CARE LABWORK SENIOR CARE LABWORK SENIOR CARE LAB WORK SENIOR CARE LAB WORK SENIOR CARE LABWORK LABWORK SENIOR CARE LAB WORK LABWORK SENIOR CARE LABWORK SENIOR CARE LAB WORK LABWORK\\ Chief Complaint LABWORK SENIOR CARE LABWORK LABWORK SENIOR CARE LAB WORK SENIOR CARE LAB WORK SENIOR CARE LABWORK SENIOR CARE LABWORK SENIOR CARE LAB WORK SENIOR CARE LAB WORK SENIOR CARE LABWORK LABWORK SENIOR CARE LAB WORK LABWORK SENIOR CARE LABWORK SENIOR CARE LAB WORK LABWORK\\ LABWORK Chief Complaint SENIOR CARE LAB WOR K SENIOR CARE LAB WORK SENIOR CARE LABWORK SENIOR CARE LABWORK SENIOR CARE LAB WORK SENIOR CARE LAB WORK SENIOR CARE LABWORK LABWORK SENIOR CARE LAB WORK LABWORK SENIOR CARE LABWORK SENIOR CARE LAB WORK LABWORK\\ LABWORK SENIOR CARE LAB WORK LABWORK Chief Complaint SENIOR CARE LAB WOR K SENIOR CARE LABWORK SENIOR CARE LABWORK SENIOR CARE LAB WORK SENIOR CARE LAB WORK SENIOR CARE LABWORK LABWORK SENIOR CARE LAB WORK LABWORK SENIOR CARE LABWORK SENIOR CARE LAB WORK LABWORK\\ LABWORK SENIOR CARE LAB WORK LABWORK LABWORK Chief Complaint SENIOR CARE LABWORK SENIOR CARE LABWORK SENIOR CARE LAB WORK SENIOR CARE LAB WORK SENIOR CARE LABWORK LABWORK SENIOR CARE LAB WORK LABWORK SENIOR CARE LABWORK SENIOR CARE LAB WORK LABWORK\\ LABWORK SENIOR CARE LAB WORK LABWORK SENIOR CARE LABWORK LABWORK Chief Complaint SENIOR CARE LAB WOR K SENIOR CARE LABWORK LABWORK SENIOR CARE LAB WORK LABWORK SENIOR CARE LABWORK SENIOR CARE LAB WORK LABWORK\\ LABWORK SENIOR CARE LAB WORK LABWORK SENIOR CARE LABWORK LABWORK SENIOR CARE LABWORK SENIOR CARE LAB WORK LABWORK SENIOR CARE LAB WORK Chief Complaint SENIOR CARE LABWORK LABWORK SENIOR CARE LAB WORK LABWORK SENIOR CARE LABWORK SENIOR CARE LAB WORK LABWORK\\ LABWORK SENIOR CARE LAB WORK LABWORK SENIOR CARE LABWORK LABWORK SENIOR CARE LABWORK SENIOR CARE LAB WORK LABWORK SENIOR CARE LAB WORK LABWORK Chief Complaint SENIOR CARE LAB WOR K LABWORK SENIOR CARE LABWORK SENIOR CARE LAB WORK LABWORK\\ LABWORK SENIOR CARE LAB WORK LABWORK SENIOR CARE LABWORK LABWORK SENIOR CARE LABWORK SENIOR CARE LAB WORK LABWORK SENIOR CARE LAB WORK LABWORK LABWORK Chief Complaint SENIOR CARE LAB WOR K LABWORK\\ LABWORK SENIOR CARE LAB WORK LABWORK SENIOR CARE LABWORK LABWORK SENIOR CARE LABWORK SENIOR CARE LAB WORK LABWORK SENIOR CARE LAB WORK LABWORK LABWORK LABWORK LABWORK LABWORK Chief Complaint LABWORK\\ LABWORK SENIOR CARE LAB WORK LABWORK SENIOR CARE LABWORK LABWORK SENIOR CARE LABWORK SENIOR CARE LAB WORK LABWORK SENIOR CARE LAB WORK LABWORK LABWORK LABWORK LABWORK LABWORK LABWORK Chief Complaint SENIOR CARE LAB WOR K LABWORK SENIOR CARE LABWORK LABWORK SENIOR CARE LABWORK SENIOR CARE LAB WORK LABWORK SENIOR CARE LAB WORK LABWORK LABWORK LABWORK LABWORK LABWORK LABWORK LABWORK Chief Complaint SENIOR CARE LABWORK LABWORK SENIOR CARE LABWORK SENIOR CARE LAB WORK LABWORK SENIOR CARE LAB WORK LABWORK LABWORK LABWORK LABWORK LABWORK LABWORK LABWORK SENIOR CARE LAB WORK LABWORK Chief Complaint LABWORK SENIOR CARE LABWORK SENIOR CARE LAB WORK LABWORK SENIOR CARE LAB WORK LABWORK LABWORK LABWORK LABWORK LABWORK LABWORK LABWORK SENIOR CARE LAB WORK LABWORK LABWORK LABWORK Chief Complaint LABWORK SENIOR CARE LAB WORK LABWORK LABWORK LABWORK LABWORK LABWORK LABWORK LABWORK SENIOR CARE LAB WORK LABWORK LABWORK LABWORK SENIOR CARE LAB WORK SENIOR CARE LAB WORK Chief Complaint SENIOR CARE LAB WOR K LABWORK LABWORK LABWORK LABWORK LABWORK LABWORK LABWORK SENIOR CARE LAB WORK LABWORK LABWORK LABWORK SENIOR CARE LAB WORK SENIOR CARE LAB WORK LABWORK Chief Complaint SENIOR CARE LABWORK SENIOR CARE LAB WORK SENIOR CARE LAB WORK SENIOR CARE LABWORK LABWORK SENIOR CARE LAB WORK LABWORK SENIOR CARE LABWORK SENIOR CARE LAB WORK LABWORK\\ LABWORK SENIOR CARE LAB WORK LABWORK SENIOR CARE LABWORK LABWORK SENIOR CARE LABWORK Chief Complaint SENIOR CARE LABWORK SENIOR CARE LAB WORK SENIOR CARE LAB WORK SENIOR CARE LABWORK LABWORK SENIOR CARE LAB WORK LABWORK SENIOR CARE LABWORK SENIOR CARE LAB WORK LABWORK\\ LABWORK SENIOR CARE LAB WORK LABWORK SENIOR CARE LABWORK LABWORK SENIOR CARE LABWORK SENIOR CARE LAB WORK Chief Complaint Admit Date SENIOR CARE LAB WORK March 11 5:00am SENIOR CARE LAB WORK March 18 5:00am LABWORK March 25, 2024 5:00am LABWORK April 01, 2024 5 :00am SENIOR CARE LAB WORK April 08, 2024 5:00am LABWORK April 15, 2024 5:00am LABWORK April 22, 2024 5:00am SENIOR CARE LAB WORK April 29 5:00am LABWORK May 06, 2024 5: 00am SENIOR CARE LAB WORK May 13, 2024 4:00am LABWORK May 20, 2024 5 :00am SENIOR CARE LAB WORK May 27, 2024 5:00am LABWORK June 03, 2024 5 :00am LABWORK June 07, 2024 5 :00am SENIOR CARE LAB WORK June 10 5:00am LABWORK June 17, 2024 5:00am SENIOR CARE LAB WORK June 24 5:00am Chief Complaint Admit Date LABWORK April 01, 2024 5 :00am SENIOR CARE LAB WORK April 08, 2024 5:00am LABWORK April 15, 2024 5:00am LABWORK April 22, 2024 5:00am SENIOR CARE LAB WORK April 29 5:00am LABWORK May 06, 2024 5: 00am SENIOR CARE LAB WORK May 13, 2024 4:00am LABWORK May 20, 2024 5 :00am SENIOR CARE LAB WORK May 27, 2024 5:00am LABWORK June 03, 2024 5 :00am LABWORK June 07, 2024 5 :00am SENIOR CARE LAB WORK June 10 5:00am LABWORK June 17, 2024 5:00am SENIOR CARE LAB WORK June 24 5:00am SENIOR CARE LAB WORK June 27 2:00am SENIOR CARE LAB WORK July 01, 2024 4: 00am LABWORK July 08, 2024 5:0 0am SENIOR CARE LAB WORK July 16, 2024 4 :00am Chief Complaint Admit Date SENIOR CARE LAB WORK April 08, 2024 5:00am LABWORK April 15, 2024 5:00am LABWORK April 22, 2024 5:00am SENIOR CARE LAB WORK April 29 5:00am LABWORK May 06, 2024 5: 00am SENIOR CARE LAB WORK May 13, 2024 4:00am LABWORK May 20, 2024 5 :00am SENIOR CARE LAB WORK May 27, 2024 5:00am LABWORK June 03, 2024 5 :00am LABWORK June 07, 2024 5 :00am SENIOR CARE LAB WORK June 10 5:00am LABWORK June 17, 2024 5:00am SENIOR CARE LAB WORK June 24 5:00am SENIOR CARE LAB WORK June 27 2:00am SENIOR CARE LAB WORK July 01, 2024 4: 00am LABWORK July 08, 2024 5:0 0am SENIOR CARE LAB WORK July 15, 2024 5 :00am SENIOR CARE LAB WORK July 16, 2024 4 :00am Chief Complaint Admit Date LABWORK April 15, 2024 5:00am LABWORK April 22, 2024 5:00am SENIOR CARE LAB WORK April 29 5:00am LABWORK May 06, 2024 5: 00am SENIOR CARE LAB WORK May 13, 2024 4:00am LABWORK May 20, 2024 5 :00am SENIOR CARE LAB WORK May 27, 2024 5:00am LABWORK June 03, 2024 5 :00am LABWORK June 07, 2024 5 :00am SENIOR CARE LAB WORK June 10 5:00am LABWORK June 17, 2024 5:00am SENIOR CARE LAB WORK June 24 5:00am SENIOR CARE LAB WORK June 27 2:00am SENIOR CARE LAB WORK July 01, 2024 4: 00am LABWORK July 08, 2024 5:0 0am SENIOR CARE LAB WORK July 15, 2024 5 :00am SENIOR CARE LAB WORK July 16, 2024 4 :00am SENIOR CARE LAB WORK July 22, 2024 5 :00am Chief Complaint Admit Date LABWORK April 22, 2024 5:00am SENIOR CARE LAB WORK April 29 5:00am LABWORK May 06, 2024 5: 00am SENIOR CARE LAB WORK May 13, 2024 4:00am LABWORK May 20, 2024 5 :00am SENIOR CARE LAB WORK May 27, 2024 5:00am LABWORK June 03, 2024 5 :00am LABWORK June 07, 2024 5 :00am SENIOR CARE LAB WORK June 10 5:00am LABWORK June 17, 2024 5:00am SENIOR CARE LAB WORK June 24 5:00am SENIOR CARE LAB WORK June 27 2:00am SENIOR CARE LAB WORK July 01, 2024 4: 00am LABWORK July 08, 2024 5:0 0am SENIOR CARE LAB WORK July 15, 2024 5 :00am SENIOR CARE LAB WORK July 16, 2024 4 :00am SENIOR CARE LAB WORK July 22, 2024 5 :00am LABWORK July 29, 2024 5:0 0am Chief Complaint Admit Date SENIOR CARE LAB WORK May 13, 2024 4:00am LABWORK May 20, 2024 5 :00am SENIOR CARE LAB WORK May 27, 2024 5:00am LABWORK June 03, 2024 5 :00am LABWORK June 07, 2024 5 :00am SENIOR CARE LAB WORK June 10 5:00am LABWORK June 17, 2024 5:00am SENIOR CARE LAB WORK June 24 5:00am SENIOR CARE LAB WORK June 27 2:00am SENIOR CARE LAB WORK July 01, 2024 4: 00am LABWORK July 08, 2024 5:0 0am SENIOR CARE LAB WORK July 15, 2024 5 :00am SENIOR CARE LAB WORK July 16, 2024 4 :00am SENIOR CARE LAB WORK July 22, 2024 5 :00am LABWORK July 29, 2024 5:0 0am SENIOR CARE LAB WORK August 05, 2024 5: 00am SENIOR CARE LAB WORK August 12, 2024 5 :00am Chief Complaint Admit Date LABWORK May 20, 2024 5 :00am SENIOR CARE LAB WORK May 27, 2024 5:00am LABWORK June 03, 2024 5 :00am LABWORK June 07, 2024 5 :00am SENIOR CARE LAB WORK June 10 5:00am LABWORK June 17, 2024 5:00am SENIOR CARE LAB WORK June 24 5:00am SENIOR CARE LAB WORK June 27 2:00am SENIOR CARE LAB WORK July 01, 2024 4: 00am LABWORK July 08, 2024 5:0 0am SENIOR CARE LAB WORK July 15, 2024 5 :00am SENIOR CARE LAB WORK July 16, 2024 4 :00am SENIOR CARE LAB WORK July 22, 2024 5 :00am LABWORK July 29, 2024 5:0 0am SENIOR CARE LAB WORK August 05, 2024 5: 00am SENIOR CARE LAB WORK August 12, 2024 5 :00am LABWORK August 26, 2024 5:0 0am Chief Complaint Admit Date LABWORK June 03, 2024 5 :00am LABWORK June 07, 2024 5 :00am SENIOR CARE LAB WORK June 10 5:00am LABWORK June 17, 2024 5:00am SENIOR CARE LAB WORK June 24 5:00am SENIOR CARE LAB WORK June 27 2:00am SENIOR CARE LAB WORK July 01, 2024 4: 00am LABWORK July 08, 2024 5:0 0am SENIOR CARE LAB WORK July 15, 2024 5 :00am SENIOR CARE LAB WORK July 16, 2024 4 :00am SENIOR CARE LAB WORK July 22, 2024 5 :00am LABWORK July 29, 2024 5:0 0am SENIOR CARE LAB WORK August 05, 2024 5: 00am SENIOR CARE LAB WORK August 12, 2024 5 :00am SENIOR CARE LAB WORK August 19, 2024 4 :00am SENIOR CARE LAB WORK August 23, 2024 5 :00am LABWORK August 26, 2024 5:0 0am LABWORK September 09, 2024 5:00a m Chief Complaint Admit Date LABWORK June 07, 2024 5 :00am SENIOR CARE LAB WORK June 10 5:00am LABWORK June 17, 2024 5:00am SENIOR CARE LAB WORK June 24 5:00am SENIOR CARE LAB WORK June 27 2:00am SENIOR CARE LAB WORK July 01, 2024 4: 00am LABWORK July 08, 2024 5:0 0am SENIOR CARE LAB WORK July 15, 2024 5 :00am SENIOR CARE LAB WORK July 16, 2024 4 :00am SENIOR CARE LAB WORK July 22, 2024 5 :00am LABWORK July 29, 2024 5:0 0am SENIOR CARE LAB WORK August 05, 2024 5: 00am SENIOR CARE LAB WORK August 12, 2024 5 :00am SENIOR CARE LAB WORK August 19, 2024 4 :00am SENIOR CARE LAB WORK August 23, 2024 5 :00am LABWORK August 26, 2024 5:0 0am SENIOR CARE LAB WORK September 02, 2024 4:00 am LABWORK September 09, 2024 5:00a m LABWORK September 11, 2024 5:00a m Chief Complaint Admit SENIOR CARE LAB WORK July 01, 2024 4: 00am LABWORK July 08, 2024 5:0 0am SENIOR CARE LAB WORK July 15, 2024 5 :00am SENIOR CARE LAB WORK July 16, 2024 4 :00am SENIOR CARE LAB WORK July 22, 2024 5 :00am LABWORK July 29, 2024 5:0 0am SENIOR CARE LAB WORK August 05, 2024 5: 00am SENIOR CARE LAB WORK August 12, 2024 5 :00am SENIOR CARE LAB WORK August 19, 2024 4 :00am SENIOR CARE LAB WORK August 23, 2024 5 :00am LABWORK August 26, 2024 5:0 0am SENIOR CARE LAB WORK September 02, 2024 4:00 am LABWORK September 09, 2024 5:00a m LABWORK September 11, 2024 5:00a m SENIOR CARE LAB WORK September 16, 2024 5:0 0am SENIOR CARE LAB WORK September 24, 2024 4:0 0am Chief Complaint Admit Date SENIOR CARE LAB WORK August 05, 2024 5: 00am SENIOR CARE LAB WORK August 12, 2024 5 :00am SENIOR CARE LAB WORK August 19, 2024 4 :00am SENIOR CARE LAB WORK August 23, 2024 5 :00am LABWORK August 26, 2024 5:0 0am SENIOR CARE LAB WORK September 02, 2024 4:00 am LABWORK September 09, 2024 5:00a m LABWORK September 11, 2024 5:00a m SENIOR CARE LAB WORK September 16, 2024 5:0 0am SENIOR CARE LAB WORK September 24, 2024 4:0 0am LABWORK September 30, 2024 5:00a m LABWORK October 07, 2024 5:00a m SENIOR CARE LAB WORK October 14, 2024 4: 00am SENIOR CARE LAB WORK October 21, 2024 4: 00am LABWORK October 28, 2024 5:00 am SENIOR CARE LAB WORK November 04, 2024 4:0 0am SENIOR CARE LAB WORK November 11, 2024 5: 00am Chief Complaint Admit Date LABWORK October 28, 2024 5:00 am SENIOR CARE LAB WORK November 04, 2024 4:0 0am SENIOR CARE LAB WORK November 11, 2024 5: 00am SENIOR CARE LAB WORK November 18, 2024 5: 00am LABWORK November 25, 2024 5:00 am SENIOR CARE LAB WORK December 02, 2024 5 :00am SENIOR CARE LAB WORK December 09, 2024 4:00am SENIOR CARE LAB WORK December 16, 2024 4:00am LABOWRK December 23, 2024 5: 00am SENIOR CARE LAB WORK December 31 5:00am SENIOR CARE LAB WORK January 06 4:00am SENIOR CARE LAB WORK January 10 5:00am LABWORK January 13, 2025 5:00am SENIOR CARE LAB WORK January 20 4:00am SENIOR CARE LAB WORK January 27 4:00am SENIOR CARE LAB WORK February 03, 2025 5:00am SENIOR CARE LAB WORK February 10, 2025 4:00am Additional Source Comments (unrecognized sect ion and content) No Status Records FoundNo Status Records FoundNo Status Records FoundNo Status Records FoundNo Status Records FoundNo Status Records Found INFORMATION SOURCE (unrecogn ized section and content) DATE CREATED AUTHOR 09/04/2018 [facility] DATE CREATED AUTHOR AUTHOR'S ORGANIZ ATION 10/06/2018 [facility] DATE CREATED AUTHOR AUTHOR'S ORGANIZ ATION 03/26/2021 [facility] DATE CREATED AUTHOR AUTHOR'S ORGANIZ ATION 05/21/2021 [facility] DATE CREATED AUTHOR AUTHOR'S ORGANIZ ATION 06/28/2024 [facility] DATE CREATED AUTHOR AUTHOR'S ORGANIZ ATION 03/01/2025 [facility] Source Comments (unrecognize d section and content) In the event this informatio n is protected by the Federal Confidentiality of Alcohol and Drug Abuse Patient Records regulations: The Federal rules restrict any use of the information to criminally investigate or prosecute any alcohol or drug abuse patient.[facility] Reason for Visit (unrecogniz ed section [...] Nancy Solorio, KUSHAL)1140 (Stopped - Provider: Jovana Armstrong, KUSHAL)1448 (New [...] Jovana Armstrong, KUSHAL)214 (Given - Provider: Nancy Solorio RN) 0914 [...] 1200 0953 (Given - Provider: Amelie Taylor ROCK DUST SPRAYER)1356 (Given - Provider: Amelie Taylor ROCK DUST SPRAYER)1648 (Given - Provider: Amelie Taylor ROCK DUST SPRAYER)2212 (Given - Provider: Claire Lagos ROCK DUST SPRAYER) 0841 (Given - Provider: Ana Cabrera ROCK DUST SPRAYER)1213 (Given - Provider: Ana Cabrrea ROCK DUST SPRAYER)1622 (Given - Provider: Ana Cabrera ROCK DUST SPRAYER)2037 (Given - Provider: Perla Loyola [employer] SPRAYER) 1020 (Given - Provider: Gabriel Soares ROCK DUST SPRAYER)1200 (Due)1600 (Due)2000 (Due) lansoprazole (PREVACID SOLUTAB) disintegrating [...] 2323 1003 (Given - Provider: Amelie Taylor ROCK DUST SPRAYER)2215 (Given - Provider: Claire Lagos ROCK DUST SPRAYER) 0841 (Given - Provider: Ana Cabrera ROCK DUST SPRAYER)2051 (Given - Provider: Perla Loyola [employer]OCK D[employer] SPRAYER) 1200 (Due - Provider: Gabriel Soares ROCK D[employer] SPRAYER)2100 (Due) sodium chloride flush 0.9 % injection [...] Francesca Cortez RN)0407 (Stopped - Provider: Francesca Crotez, KUSHAL) PRN Medication Order 03/22/2021 03/23/2021 03/24/2021 [...] Inactive Member Role Status Dates Renard Burgos OLS Attending Provider Active Team Status: Inactive Member Role Status Dates Renard Burgos OLS Attending Provider, Referring Provi gelacio Active Team Status: Active Member Role Status Dates Renard Burgos OLS Attending Provider Active Team Status: Active Member Role Status Dates Renard Burgos OLS Attending Provider, Referring Provi gelacio Active Team Status: Inactive Member Role Status Dates Renard Burgos Attending Provider Active Team Status: Inactive Member Role Status Dates Renard Burgos Attending Provider, Referring Provider Active Team Status: Active Member Role Status Dates Renard Burgos Attending Provider Active Cement Mason Helper Relationship Specialty Start Date End Date Renard Burgos [address] [place] [phone] PCP - General Internal Medicine 10/16/23 Cement Mason Helper Relationship Specialty Start Date End Date Renard Burgos [address] [place] [phone] PCP - General Internal Medicine 10/16/23 Cement Mason Helper Relationship Specialty Start Date End Date Renard Burgos [address] [place] [phone] PCP - General Internal Medicine 10/16/23 Cement Mason Helper Relationship Specialty Start Date End Date Aliriohola Renard [address] [place] [phone] PCP - General Internal Medicine 10/16/23 Team [...] Provider Active Sta rt: September 09, 2024 Cement Mason Helper Relationship Specialty Start Date End Date Renard Burgos [address] [facility] [address] [place] [phone] PCP - General Internal Medicine 10/16/23 Team [...] September 24, 2024 End: September 24, 2024 Team Status: Active Member Role/Relationship Status Dates Renard GARLAND Attending physician Active St art: October 28, 2024 Team Status: Active Member Role/Relationship Status Dates Renard GARLAND Attending physician Active St art: November 04, 2024 Renard GARLAND Referring Provider Active Sta rt: November 04, 2024 Team Status: Active Member Role/Relationship Status Dates Renard GARLAND Attending physician Active St art: November 11, 2024 Team Status: Active Member Role/Relationship Status Dates Renard GARLAND Attending physician Active St art: November 18, 2024 Team Status: Active Member Role/Relationship Status Dates Renard GARLAND Attending physician Active St art: November 25, 2024 Team Status: Active Member Role/Relationship Status Dates Renard GARLAND Attending physician Active St art: December 02, 2024 Team Status: Active Member Role/Relationship Status Dates Renard GARLAND Attending physician Active St art: December 09, 2024 Renard GARLAND Referring Provider Active Sta rt: December 09, 2024 Team Status: Active Member Role/Relationship Status Dates Renard GARLAND Attending physician Active St art: December 16, 2024 Renard GARLAND Referring Provider Active Sta rt: December 16, 2024 Team Status: Inactive Member Role/Relationship Status Dates Renard GARLAND Attending physician Active St art: December 23, 2024 End: December 23, 2024 Team Status: Active Member Role/Relationship Status Dates Renard GARLAND Attending physician Active St art: December 31, 2024 Team Status: Active Member Role/Relationship Status Dates Renard GARLAND Attending physician Active St art: January 06, 2025 Renard GARLAND Referring Provider Active Sta rt: January 06, 2025 Team Status: Active Member Role/Relationship Status Dates Renard GARLAND Attending physician Active St art: January 10, 2025 Team Status: Active Member Role/Relationship Status Dates Renard Loretta GILL Attending physician Active St art: January 13, 2025 Team Status: Active Member Role/Relationship Status Dates Renard GARLAND Primary care physician Active Start: January 20, 2025 Renard Loretta GILL Attending physician Active St art: January 20, 2025 Renard GARLAND Referring Provider Active Sta rt: January 20, 2025 Team Status: Active Member Role/Relationship Status Dates Renard Aliriohola GARLAND Attending physician Active St art: January 27, 2025 Renard GARLAND Referring Provider Active Sta rt: January 27, 2025 Team Status: Active Member Role/Relationship Status Dates Renard Aliriohola GARLAND Attending physician Active St art: February 03, 2025 Team Status: Active Member Role/Relationship Status Dates Renard Aliriohola GARLAND Attending physician Active St art: February 10, 2025 Renard Loretta GILL Referring Provider Active Sta rt: February 10, 2025 Team Status: Active Member Role/Relationship Status Dates Renard Aliriohola GARLAND Attending physician Active St art: February 17, 2025 Team Status: Active Member Role/Relationship Status Dates Renard Amezquitahola GARLAND Attending physician Active St art: February 21, 2025 Team Status: Active Member Role/Relationship Status Dates Renard Amezquitahola GARLAND Attending physician Active St art: February 24, 2025 FOR RECORDS PERTAINING TO PATIENTS WHO ARE [...] BE BASED ON THE PRIMARY CLINICAL RECORDS. [facility] [employer] provides no warranty or guarantee of the accuracy or completeness of information in this document.
[2025-03-03 08:49] LABS: Hematocrit 40.9 % (40-54); Hemoglobin 13.4 g/dL (13.0-16.5); Immature Granulocytes Count 0.030 X10^3/uL (0.0-0.0); Mean Corp Hgb Conc 32.8 g/dL (32-36); Mean Corpuscular Volume 92.5 fL (80-94); Mean Platelet Vol. 11.4 fl (6.2-12.0); NRBC Flagged by Analyzer 0 % (0-5); Platelet Count 197 K/mm3 (150-450); RBC Distribution Width CV 13.4 % (11.6-14.6); RBC Distribution Width SD 45.8 fl (35.1-43.9); Red Blood Count 4.42 M/mm3 (4.6-6.2); White Blood Count 8.3 K/mm3 (4.4-11.0)
== END | disposition home or self-care (01) ==
LOC: OLS.SANC 04:00
PROVIDERS: Referring Provider Internal Medicine; Visit Provider Internal Medicine
DX: Z79.899 Other long term (current) drug therapy (principal)
CPT/HCPCS: 36415; 85025

== ENCOUNTER → 2025-03-10 | Outpatient (REF) | payer MEDICAID, SELFPAY ==
[2025-03-10 07:42] LABS: Hematocrit 39.6 % (40-54); Hemoglobin 12.9 g/dL (13.0-16.5); Immature Granulocytes Count 0.030 X10^3/uL (0.0-0.0); Mean Corp Hgb Conc 32.6 g/dL (32-36); Mean Corpuscular Volume 92.1 fL (80-94); Mean Platelet Vol. 11.3 fl (6.2-12.0); NRBC Flagged by Analyzer 0 % (0-5); Platelet Count 206 K/mm3 (150-450); RBC Distribution Width CV 13.3 % (11.6-14.6); RBC Distribution Width SD 45.1 fl (35.1-43.9); Red Blood Count 4.30 M/mm3 (4.6-6.2); White Blood Count 8.3 K/mm3 (4.4-11.0)
== END | disposition home or self-care (01) ==
LOC: OLS.SANC 05:00
PROVIDERS: Visit Provider Internal Medicine
DX: N40.0 Benign prostatic hyperplasia without lower urinary tract symptoms (principal)
CPT/HCPCS: 36415; 85025

== ENCOUNTER → 2025-03-14 | Outpatient (REF) | payer MEDICAID, SELFPAY ==
[2025-03-14 08:05] LABS: Anion Gap 8 (5-15); BUN 14 mg/dL (4-19); BUN/Creat Ratio 21.9 RATIO (10-20); Calcium,Total 8.6 mg/dL (7.6-11.0); Carbon Dioxide 28.9 mmol/L (21.0-32.0); Chloride 103 mmol/L (98-108); Glucose 147 mg/dL (70-99); Potassium 3.9 mmol/L (3.3-5.1)
== END | disposition home or self-care (01) ==
LOC: OLS.SANC 05:00
PROVIDERS: Visit Provider Internal Medicine
DX: N40.0 Benign prostatic hyperplasia without lower urinary tract symptoms (principal)
CPT/HCPCS: 36415; 80048

== ENCOUNTER → 2025-03-17 | Outpatient (REF) | payer MEDICAID, SELFPAY ==
--- OUTSIDE RECORDS SUMMARY | 2025-03-17 04:21 | XMS RPT_ITS | CCD ---
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 Name Role Phone JORDAN OREILLY Attending Unavailable PROVIDER, UNKNOWN Referring Unavailable Nathanael Cazares Primary Care Unavailable PROVIDER, UNKNOWN Referring Unavailable Nathanael Cazares Primary Care Unavailable Jaime Lindquist Attending Unavailable Unavailable Primary Care Provider UnavailBethany Navarrete Primary Care Provider [phone] Jarvis Kendall MD Unavailable [phone] Bethany Russell MD Primary Care Provider Unavailable [...] GARLAND Attending Provider Unavailab le Katsaros Renard AGRLAND Referring Provider Unavailab le KatsaRenard Ruiz Attending Provider Unavailab le Katsaros OLS, Renard Attending Provider Unavailab le Katsaros OLS, Renard Attending Provider Unavailab le Katsaros OLS, Renard Attending Provider Unavailab le Katsaros OLS, Renard Referring Provider Unavailab le Katsaros OLS, Renard Attending Physician Unavaila ble Katsaros OLS, Renard Referring Provider Unavailab le Katsaros OLS, Renard Primary Care Physician Unava ilable Katsaros OLS, Renard Attending Unavailable Katsaros OLS, [...] tablet via peg tube as needed ACETAMINOPHEN [id number] Ana Stevenson [facility] albuterol 0.83 mg/ml inhalation solution (1 source) beta2-Adrenergic Agonist Start: 03-19-2021 albut veronica (PROVENTIL) nebulizer solution 2.5 mg albuterol 0.833 mg/ml / ipratropium bromide 0.167 mg/ml inhalation solution (18 sources) Anticholinergic, beta2-Adrenergic Agonist Start: 03-20-2021 ipratropium-alb utero l (DUONEB) nebulizer solution 1 ampule Start: 05-22-2019 IPRATROPIUM-AL BUTEROL 0.5-2.5 (3) MG/3ML SOLN 3ml via nebulizer every 4 hours as needed IPRATROPIUM-ALBUTEROL [id number] Ana Diesch TRAVELING CLERK Start: 08-22-2018 take 3 mL by inhalat ion every four hours ipratropium-albuterol (DUONEB) 0.5-2.5 (3) MG/3ML SOLN nebulizer solution Inhale 3 mLs into the lungs every 4 hours 360 mL 0 08/22/2018 Active aspirin 81 mg chewable tablet (9 sources) Platelet Aggregation Inhibitor, Nonsteroidal Anti-inflammatory Drug Start: 05-22-2019 ASPIRIN ADULT LOW STRENGTH 81 MG CHEW one tablet via peg tube daily ASPIRIN [id number] Ana Stevenson [facility] Start: 08-23-2018 aspirin 81 MG chewable tablet 1 tablet by Per NG tube route daily 30 tablet 3 08/23/2018 Active atorvastatin 40 mg oral tablet (9 sources) HMG-CoA Reductase Inhibitor Start: 05-22-2019 ATORVASTATIN CALCIUM 40 MG TABS one tablet via peg tube daily ATORVASTATIN CALCIUM [id number] [facility] Start: 08-22-2018 atorvastatin ( LIPITOR) 40 MG tablet 1 tablet by Per NG tube route nightly 30 tablet 3 08/22/2018 Active castor oil 0.788 mg/mg / gambian balsam 0.087 mg/mg topical ointment (7 sources) Standardized Chemical Allergen Start: 08-22-2018 Balsam [place] O il (VENELEX) OINT ointment Apply topically [...] 250mg via peg tube twice daily CLOZAPINE [id number] [facility] Start: 08-22-2018 cloZAPine [...] via peg tube twice daily DOCUSATE SODIUM [id number] [facility] Start: 08-22-2018 docusate (COLA CE) 50 MG/5ML liquid 10 mLs by Per NG tube route 2 times daily 0 08/22/2018 Active take 1 capsule by mo [facility] twice daily docusate sodium (Colace) 100 [...] one tablet via peg tube nightly MELATONIN [id number] [facility] Start: 08-22-2018 melatonin 3 MG [...] needed. 0 08/23/2018 Active polyethylene glycol 3350 05228 mg powder for oral solution (1 source) [...] Sig (Normalized) Sig (Original) barium sulfate (Varibar Zeb, Varibar Honey) 40 % suspension 5 mL [...] SUPP every 24 hours as needed BISACODYL [id number] Ana Stevenson TRAVELING CLERK Start: 05-22-2019 BISACODYL EC 5 MG TBEC one tablet via peg tube daily as needed BISACODYL [id number] Ana Stevenson TRAVELING CLERK chlorhexidine gluconate 1.2 mg/ml mouthwash (10 sources) Start: 05-22-2019 PERIDEX 0.12 % SOLN 15ml twice daily CHLORHEXIDINE GLUCONATE [id number] Ana Stevenson LPN chlorhexidine (P eridex) 0.12 % solution Use 15 mL in the mouth or throat if needed for wound care. Active cholecalciferol 1000 unt oral tablet (16 sources) Vitamin D Start: 05-22-2019 VITAMIN D3 25 MCG (1000 UT) TABS one tablet via peg tube daily CHOLECALCIFEROL [id number] Ana Stevenson LPN cholecalciferol (SM Vitamin D3) 25 MCG (1000 UT) tablet Take 1,000 Units by mouth daily. Active dextromethorphan hydrobromide 2 mg/ml / guaiFENesin 20 mg/ml oral solution (1 source) Uncompetitive U-llrtup-I-aspartate Receptor Antagonist, Sigma-1 Agonist Start: 05-22-2019 ROBITUSSIN PEAK COLD DM SYRP 5ml via peg tube every 4 hours as needed for cough DEXTROMETHORPHAN-GUAIFENESIN SYRP 52159902102 Ana Stevenson LPN magnesium hydroxide 240 mg/ml oral suspension (1 source) Start: 05-22-2019 MILK OF MAGNESIA CONCENTRATE SUSP 30ml via peg tube every 24 hours MAGNESIUM HYDROXIDE SUSP [id number] Ana Stevenson LPN methylPREDNISolone 40 mg injection (2 sources) Corticosteroid Start: 03-20-2021 End: 03-24-2021 methylPREDNISolone sodium (SOLU-MEDROL) injection 40 mg MULTIPLE VITAMINS-MINERALS (1 source) Start: 05-22-2019 MENS MULTIVITAMIN TABS one tablet via peg tube daily MULTIPLE VITAMINS-MINERALS [id number] Ana Stevenson LPN POLYETHYLENE GLYCOL 1450 (1 source) Start: 05-22-2019 POLYETHYLENE GLYCOL 1450 POW D 17 grams via peg tube twice daily POLYETHYLENE GLYCOL 1450 [id number] Aan Stevenson LPN SENNOSIDES-DOCUSATE SODIUM (1 source) Start: 05-22-2019 SENNA PLUS 8.6-50 MG TABS on e tablet via peg tube daily SENNOSIDES-DOCUSATE SODIUM 73327352945 Ana Stevenson LPN 50 ml sodium chloride [...] Onset: 9 07-11-2018 Other aftercare (2 sources) long term (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; Translations: [long term (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] Onset: 9 Episodic Other aftercare (2 sources) Other terminal carman (current) drug therapy; Translations: [Other senior living (current) drug therapy] Onset: 5 Episodic Other [...] 9 07-23-2018 Episodic Other aftercare (1 source) assisted (current) use of antibiotics; Translations: [assisted (current) use of antibiotics] Onset: 5 Episodic Other aftercare (1 source) assisted (current) use of 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; Translations: [long term (current) use of 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] Onset: 5 Episodic [...] Interpretation Reference Range Facility CBC W/Diff, Automatedon 11- Absolute Lymph 1.55 X10 3/uL Normal 0.83-4.51 [facility] Comment on above: Order Comment: 109-1 Performed By: #### L 100.0100 ####[facility] [address] [place], [place], [address] Absolute Neut 5.9 X10 3/uL Normal 2.0-7.7 [facility] Comment on above: Order Comment: 109-1 Performed By: #### L 100.0100 ####[facility] [address] [place], [address] Basophils/100 WBC (Bld) 0.6 % Normal 0-1 [facility] Comment on above: Order Comment: 109-1 Performed By: #### L 100.0100 ####[facility] [address] [place], [address] Eosinophils/100 WBC (Bld) 1.0 % Normal 0-5 [facility] Comment on above: Order Comment: 109-1 Performed By: #### L 100.0100 ####[facility] [address] [place], [address] Erythrocyte distribution width (RBC) [Ratio] 13.3 % Normal 11.6-14.6 [facility] Comment on above: Order Comment: 109-1 Performed By: #### L 100.0100 ####[facility] [address] [place], [address] Hematocrit (Bld) [Volume fraction] 39.6 % Low 40-54 [facility] Comment on above: Order Comment: 109-1 Performed By: #### L 100.0100 ####[facility] [address] [place], [address] Hemoglobin (Bld) [Mass/Vol] 12.9 g/dL Low 13.0-16.5 [facility] Comment on above: Order Comment: 109-1 Performed By: #### L 100.0100 ####[facility] [address] [place], [address] IG% 0.400 Normal 0.0-0.9 [facility] Comment on above: Order Comment: 109-1 Result Comment: IG% - Immature Granulocytes (promyelocytes, myelocytes andmetamyelocytes) > 1% indicates that a LEFT SHIFT is Present. Performed By: #### L 100.0100 ####[facility] [address] [place], [address] Lymphocytes/100 WBC (Bld) 18.6 % Low 19-41 [facility] Comment on above: Order Comment: 109-1 Performed By: #### L 100.0100 ####[facility] [address] [place], [address] MCH (RBC) [Entitic mass] 30.0 pg Normal 27.0-32.0 [facility] Comment on above: Order Comment: 109-1 Performed By: #### L 100.0100 ####[facility] [address] [place], [address] MCHC (RBC) [Mass/Vol] 32.6 g/dL Normal 32-36 [facility] Comment on above: Order Comment: 109-1 Performed By: #### L 100.0100 ####[facility] [address] [place], [address] MCV (RBC) [Entitic vol] 92.1 fL Normal 80-94 [facility] Comment on above: Order Comment: 109-1 Performed By: #### L 100.0100 ####[facility] [address] [place], [address] Monocytes/100 WBC (Bld) 8.5 % Normal 0-10 [facility] Comment on above: Order Comment: 109-1 Performed By: #### L 100.0100 ####[facility] [address] [place], [address] Neutrophils/100 WBC (Bld) 70.9 % High 47-70 [facility] Comment on above: Order Comment: 109-1 Performed By: #### L 100.0100 ####[facility] [address] [place], [address] Nucleated RBC (Bld) [#/Vol] 0 10*3/uL Normal 0-5 [facility] Comment on above: Order Comment: 109-1 Performed By: #### L 100.0100 ####[facility] [address] [place], [address] Platelet mean volume (Bld) [Entitic vol] 11.3 fL Normal 6.2-12.0 [facility] Comment on above: Order Comment: 109-1 Performed By: #### L 100.0100 ####[facility] [address] [place], [address] Platelets (Bld) [#/Vol] 206 10*3/uL Normal 150-450 [facility] Comment on above: Order Comment: 109-1 Performed By: #### L 100.0100 ####[facility] [address] [place], [address] RBC (Bld) [#/Vol] 4.30 10*6/uL Low 4.6-6.2 [facility] Comment on above: Order Comment: 109-1 Performed By: #### L 100.0100 ####[facility] [address] [place], [address] RDW SD 45.1 fl High 35.1-43.9 [facility] Comment on above: Order Comment: 109-1 Performed By: #### L 100.0100 ####[facility] [address] [place], [address] WBC (Bld) [#/Vol] 8.3 10*3/uL Normal 4.4-11.0 [facility] Comment on above: Order Comment: 109-1 Performed By: #### L 100.0100 ####[facility] [address] [place], [address] CBC W/Diff, Automatedon 11-0 3-2025 Absolute Lymph 2.24 X10 3/uL Normal 0.83-4.51 [facility] Comment on above: Order Comment: 109.1 Performed By: #### L 100.0100 ####[facility] [address] [place], [address] Absolute Neut 5.2 X10 3/uL Normal 2.0-7.7 [facility] Comment on above: Order Comment: 109.1 Performed By: #### L 100.0100 ####[facility] [address] [place], [address] Basophils/100 WBC (Bld) 0.5 % Normal 0-1 [facility] Comment on above: Order Comment: 109.1 Performed By: #### L 100.0100 ####[facility] [address] [place], [address] Eosinophils/100 WBC (Bld) 1.1 % Normal 0-5 [facility] Comment on above: Order Comment: 109.1 Performed By: #### L 100.0100 ####[facility] [address] [place], [address] Erythrocyte distribution width (RBC) [Ratio] 13.4 % Normal 11.6-14.6 [facility] Comment on above: Order Comment: 109.1 Performed By: #### L 100.0100 ####[facility] [address] [place], [address] Hematocrit (Bld) [Volume fraction] 40.9 % Normal 40-54 [facility] Comment on above: Order Comment: 109.1 Performed By: #### L 100.0100 ####[facility] [address] [place], [address] Hemoglobin (Bld) [Mass/Vol] 13.4 g/dL Normal 13.0-16.5 [facility] Comment on above: Order Comment: 109.1 Performed By: #### L 100.0100 ####[facility] [address] [place], [address] IG% 0.400 Normal 0.0-0.9 [facility] Comment on above: Order Comment: 109.1 Result Comment: IG% - Immature Granulocytes (promyelocytes, myelocytes andmetamyelocytes) > 1% indicates that a LEFT SHIFT is Present. Performed By: #### L 100.0100 ####[facility] [address] [place], [address] Lymphocytes/100 WBC (Bld) 27.0 % Normal 19-41 [facility] Comment on above: Order Comment: 109.1 Performed By: #### L 100.0100 ####[facility] [address] [place], [address] MCH (RBC) [Entitic mass] 30.3 pg Normal 27.0-32.0 [facility] Comment on above: Order Comment: 109.1 Performed By: #### L 100.0100 ####[facility] [address] [place], [address] MCHC (RBC) [Mass/Vol] 32.8 g/dL Normal 32-36 [facility] Comment on above: Order Comment: 109.1 Performed By: #### L 100.0100 ####[facility] [address] [place], [address] MCV (RBC) [Entitic vol] 92.5 fL Normal 80-94 [facility] Comment on above: Order Comment: 109.1 Performed By: #### L 100.0100 ####[facility] [address] [place], [address] Monocytes/100 WBC (Bld) 8.7 % Normal 0-10 [facility] Comment on above: Order Comment: 109.1 Performed By: #### L 100.0100 ####[facility] [address] [place], [address] Neutrophils/100 WBC (Bld) 62.3 % Normal 47-70 [facility] Comment on above: Order Comment: 109.1 Performed By: #### L 100.0100 ####[facility] [address] [place], [address] Nucleated RBC (Bld) [#/Vol] 0 10*3/uL Normal 0-5 [facility] Comment on above: Order Comment: 109.1 Performed By: #### L 100.0100 ####[facility] [address] [place], [address] Platelet mean volume (Bld) [Entitic vol] 11.4 fL Normal 6.2-12.0 [facility] Comment on above: Order Comment: 109.1 Performed By: #### L 100.0100 ####[facility] [address] [place], [address] Platelets (Bld) [#/Vol] 197 10*3/uL Normal 150-450 [facility] Comment on above: Order Comment: 109.1 Performed By: #### L 100.0100 ####[facility] [address] [place], [address] RBC (Bld) [#/Vol] 4.42 10*6/uL Low 4.6-6.2 [facility] Comment on above: Order Comment: 109.1 Performed By: #### L 100.0100 ####[facility] [address] [place], [address] RDW SD 45.8 fl High 35.1-43.9 [facility] Comment on above: Order Comment: 109.1 Performed By: #### L 100.0100 ####[facility] [address] [place], [address] WBC (Bld) [#/Vol] 8.3 10*3/uL Normal 4.4-11.0 [facility] Comment on above: Order Comment: 109.1 Performed By: #### L 100.0100 ####[facility] [address] [place], [address] Absolute lymphocyte countOrd ered By: Renard Burgos on 02-24-2025 Lymphocytes Auto (Unsp spec) [#/Vol] 1.98 10*3/uL 0.83-4.51 [facility] Absolute neutrophil countOrd ered By: Renard Burgos on 02-24-2025 Neutrophils (Bld) [#/Vol] 5.4 10*3/uL 2.0-7.7 [facility] Automated lymphocyte count a s percentage of total leukocytesOrdered By: Renard Burgos on 02-24-2025 Lymphocytes/100 WBC Auto (Unsp spec) 24.6 % 19-41 [facility] Basophil percentageOrdered B y: Renard Burgos on 02-24-2025 Basophils/100 WBC (Bld) 0.5 % 0-1 [facility] CBC W/Diff, Automatedon 01-30 Absolute Lymph 1.98 X10 3/uL Normal 0.83-4.51 [facility] Comment on above: Order Comment: 109-1 Performed By: #### L 100.0100 ####[facility] [address] [place], [address] Absolute Neut 5.4 X10 3/uL Normal 2.0-7.7 [facility] Comment on above: Order Comment: 109-1 Performed By: #### L 100.0100 ####[facility] [address] [place], [address] Basophils/100 WBC (Bld) 0.5 % Normal 0-1 [facility] Comment on above: Order Comment: 109-1 Performed By: #### L 100.0100 ####[facility] [address] [place], [address] Eosinophils/100 WBC (Bld) 0.9 % Normal 0-5 [facility] Comment on above: Order Comment: 109-1 Performed By: #### L 100.0100 ####[facility] [address] [place], [address] Erythrocyte distribution width (RBC) [Ratio] 13.3 % Normal 11.6-14.6 [facility] Comment on above: Order Comment: 109-1 Performed By: #### L 100.0100 ####[facility] [address] [place], [address] Hematocrit (Bld) [Volume fraction] 42.2 % Normal 40-54 [facility] Comment on above: Order Comment: 109-1 Performed By: #### L 100.0100 ####[facility] [address] [place], [address] Hemoglobin (Bld) [Mass/Vol] 14.0 g/dL Normal 13.0-16.5 [facility] Comment on above: Order Comment: 109-1 Performed By: #### L 100.0100 ####[facility] [address] [place], [address] IG% 0.200 Normal 0.0-0.9 [facility] Comment on above: Order Comment: 109-1 Result Comment: IG% - Immature Granulocytes (promyelocytes, myelocytes andmetamyelocytes) > 1% indicates that a LEFT SHIFT is Present. Performed By: #### L 100.0100 ####[facility] [address] [place], [address] Lymphocytes/100 WBC (Bld) 24.6 % Normal 19-41 [facility] Comment on above: Order Comment: 109-1 Performed By: #### L 100.0100 ####[facility] [address] [place], [address] MCH (RBC) [Entitic mass] 30.1 pg Normal 27.0-32.0 [facility] Comment on above: Order Comment: 109-1 Performed By: #### L 100.0100 ####[facility] [address] [place], [address] MCHC (RBC) [Mass/Vol] 33.2 g/dL Normal 32-36 [facility] Comment on above: Order Comment: 109-1 Performed By: #### L 100.0100 ####[facility] [address] [place], [address] MCV (RBC) [Entitic vol] 90.8 fL Normal 80-94 [facility] Comment on above: Order Comment: 109-1 Performed By: #### L 100.0100 ####[facility] [address] [place], [address] Monocytes/100 WBC (Bld) 7.1 % Normal 0-10 [facility] Comment on above: Order Comment: 109-1 Performed By: #### L 100.0100 ####[facility] [address] [place], [address] Neutrophils/100 WBC (Bld) 66.7 % Normal 47-70 [facility] Comment on above: Order Comment: 109-1 Performed By: #### L 100.0100 ####[facility] [address] [place], [address] Nucleated RBC (Bld) [#/Vol] 0 10*3/uL Normal 0-5 [facility] Comment on above: Order Comment: 109-1 Performed By: #### L 100.0100 ####[facility] [address] [place], [address] Platelet mean volume (Bld) [Entitic vol] 11.2 fL Normal 6.2-12.0 [facility] Comment on above: Order Comment: 109-1 Performed By: #### L 100.0100 ####[facility] [address] [place], [address] Platelets (Bld) [#/Vol] 211 10*3/uL Normal 150-450 [facility] Comment on above: Order Comment: 109-1 Performed By: #### L 100.0100 ####[facility] [address] [place], [address] RBC (Bld) [#/Vol] 4.65 10*6/uL Normal 4.6-6.2 [facility] Comment on above: Order Comment: 109-1 Performed By: #### L 100.0100 ####[facility] [address] [place], [address] RDW SD 44.7 fl High 35.1-43.9 [facility] Comment on above: Order Comment: 109-1 Performed By: #### L 100.0100 ####[facility] [address] [place], [address] WBC (Bld) [#/Vol] 8.1 10*3/uL Normal 4.4-11.0 [facility] Comment on above: Order Comment: 109-1 Performed By: #### L 100.0100 ####[facility] [address] [place], [address] Eosinophil percentageOrdered By: Renard Burgos on 02-24-2025 Eosinophils/100 WBC (Bld) 0.9 % 0-5 [facility] Erythrocyte distribution wid th ratioOrdered By: Renard Burgos on 02-24-2025 Erythrocyte distribution width (RBC) [Ratio] 13.3 % 11.6-14.6 [facility] Erythrocyte distribution wid th standard deviationOrdered By: Reanrd Burgos on 02-24-2025 Erythrocyte distribution width (RBC) [Ratio] 44.7 fl High 35.1-43.9 [facility] Hematocrit Auto (Bld) [Volum e fraction]Ordered By: Renard Burgos on 02-24-2025 Hematocrit (Bld) [Volume fraction] 42.2 % 40-54 [facility] Hemoglobin measurementOrdere d By: Renard Burgos on 02-24-2025 Hemoglobin (Bld) [Mass/Vol] 14.0 g/dL 13.0-16.5 [facility] Immature granulocytes/100 WB C Auto (Bld)Ordered By: Renard Burgos on 02-24-2025 Immature granulocytes/100 WBC (Bld) 0.200 % 0.0-0.9 [facility] Comment on above: IG% - Immature Granu locytes (promyelocytes, myelocytes and metamyelocytes) > 1% indicates that a LEFT SHIFT is Present. MCV (mean corpuscular volume ) determinationOrdered By: Renard Burgos on 02-24-2025 MCV (RBC) [Entitic vol] 90.8 fL 80-94 [facility] Mean corpuscular hemoglobin (MCH) determinationOrdered By: Renard Burgos on 02-24-2025 MCH (RBC) [Entitic mass] 30.1 pg 27.0-32.0 [facility] Mean corpuscular hemoglobin concentration (MCHC) determinationOrdered By: Renard Burgos on 02-24-2025 MCHC (RBC) [Mass/Vol] 33.2 g/dL 32-36 [facility] Mean platelet volume determi nationOrdered By: Renard Burgos on 02-24-2025 Platelet mean volume (Bld) [Entitic vol] 11.2 fL 6.2-12.0 [facility] Monocyte percentageOrdered B y: Renard Burgos on 02-24-2025 Monocytes/100 WBC (Bld) 7.1 % 0-10 [facility] Neutrophil percentageOrdered By: Renard Burgos on 02-24-2025 Neutrophils/100 WBC (Bld) 66.7 % 47-70 [facility] Nucleated red blood cell per centageOrdered By: Renard Burgos on 02-24-2025 Nucleated RBC/100 WBC (Bld) [Ratio] 0 % 0-5 [facility] Platelet countOrdered By: Garrick Bhatt on 02-24-2025 Platelets (Bld) [#/Vol] 211 10*3/uL 150-450 [facility] RBC Auto (Bld) [#/Vol]Ordere d By: Renard Burgos on 02-24-2025 RBC (Bld) [#/Vol] 4.65 10*6/uL 4.6-6.2 [facility] White blood cell (WBC) count Ordered By: Renard Burgos on 02-24-2025 WBC (Bld) [#/Vol] 8.1 10*3/uL 4.4-11.0 [facility] Anion gap in Serum or Plasma Ordered By: Renard Burgos on 02-21-2025 Anion gap [Moles/Vol] 10 mmol/L - [facility] BUN/creatinine ratioOrdered By: Renard Burgos on 02-21-2025 Urea nitrogen/Creatinine [Mass ratio] 30.1 mg/mg High - [facility] Bilirubin, totalOrdered By: Renard Burgos on 02-21-2025 Bilirubin [Mass/Vol] 0.40 mg/dL 0.00-1.30 [facility] CBC-Complete Blood Cnt No Di ffon 02-21-2025 Erythrocyte distribution width (RBC) [Ratio] 13.7 % Normal 11.6-14.6 [facility] Comment on above: Order Comment: 109.1 Performed By: #### L 500.4100, L501.9985, L100.0500, L500.4050 ####[facility] [address] [place], [address] Hematocrit (Bld) [Volume fraction] 42.1 % Normal 40-54 [facility] Comment on above: Order Comment: 109.1 Performed By: #### L 500.4100, L501.9985, L100.0500, L500.4050 ####[facility] [address] [place], [address] Hemoglobin (Bld) [Mass/Vol] 13.6 g/dL Normal 13.0-16.5 [facility] Comment on above: Order Comment: 109.1 Performed By: #### L 500.4100, L501.9985, L100.0500, L500.4050 ####[facility] [address] [place], [address] MCH (RBC) [Entitic mass] 30.2 pg Normal 27.0-32.0 [facility] Comment on above: Order Comment: 109.1 Performed By: #### L 500.4100, L501.9985, L100.0500, L500.4050 ####[facility] [address] [place], [address] MCHC (RBC) [Mass/Vol] 32.3 g/dL Normal 32-36 [facility] [place] Comment on above: Order Comment: 109.1 Performed By: #### L 500.4100, L501.9985, L100.0500, L500.4050 ####[facility] [address] [place], [address] MCV (RBC) [Entitic vol] 93.3 fL Normal 80-94 [facility] Comment on above: Order Comment: 109.1 Performed By: #### L 500.4100, L501.9985, L100.0500, L500.4050 ####[facility] [address] [place], [address] Platelet mean volume (Bld) [Entitic vol] 11.6 fL Normal 6.2-12.0 [facility] Comment on above: Order Comment: 109.1 Performed By: #### L 500.4100, L501.9985, L100.0500, L500.4050 ####[facility] [address] [place], [address] Platelets (Bld) [#/Vol] 173 10*3/uL Normal 150-450 [facility] Comment on above: Order Comment: 109.1 Performed By: #### L 500.4100, L501.9985, L100.0500, L500.4050 ####[facility] [address] [place], [address] RBC (Bld) [#/Vol] 4.51 10*6/uL Low 4.6-6.2 [facility] Comment on above: Order Comment: 109.1 Performed By: #### L 500.4100, L501.9985, L100.0500, L500.4050 ####[facility] [address] [place], [address] RDW SD 46.5 fl High 35.1-43.9 [facility] Comment on above: Order Comment: 109.1 Performed By: #### L 500.4100, L501.9985, L100.0500, L500.4050 ####[facility] [address] [place], [address] WBC (Bld) [#/Vol] 10.2 10*3/uL Normal 4.4-11.0 [facility] Comment on above: Order Comment: 109.1 Performed By: #### L 500.4100, L501.9985, L100.0500, L500.4050 ####[facility] [address] [place], [address] Calculated very low density lipoprotein (VLDL) cholesterol measurementOrdered By: Renard Burgos on 02-21-2025 Calculated very low density lipoprotein (VLDL) cholesterol measurement 37 mg/dL 5-40 [facility] Carbon dioxide, total [Moles /volume] in Central venous bloodOrdered By: Renard Burgos on 02-21-2025 CO2 [Moles/Vol] 22.4 mmol/L 21.0-32.0 [facility] Chloride assayOrdered By: Garrick Bhatt on 02-21-2025 Chloride [Moles/Vol] 104 mmol/L 98-108 [facility] Comprehensive Metabolic Prof ilon 02-21-2025 Albumin [Mass/Vol] 3.3 g/dL Low 3.4-4.8 [facility] Comment on above: Order Comment: 109.1 Performed By: #### L 500.4100, L501.9985, L100.0500, L500.4050 ####[facility] [address] [place], [address] Albumin/Globulin [Mass ratio] 1.1 {ratio} Normal 0.9-2.4 [facility] Comment on above: Order Comment: 109.1 Performed By: #### L 500.4100, L501.9985, L100.0500, L500.4050 ####[facility] [address] [place], [address] ALK PHOS 137 U/L High 40-129 [facility] Comment on above: Order Comment: 109.1 Performed By: #### L 500.4100, L501.9985, L100.0500, L500.4050 ####[facility] [address] [place], [address] ALT [Catalytic activity/Vol] 22 U/L Normal <=46 [facility] Comment on above: Order Comment: 109.1 Result Comment: Hemo lysis present, Results??could be affected.?? Performed By: #### L 500.4100, L501.9985, L100.0500, L500.4050 ####[facility] [address] [place], [address] AST [Catalytic activity/Vol] 39 U/L High <=37 [facility] Comment on above: Order Comment: 109.1 Result Comment: Hemo lysis present, Results??could be affected.?? Performed By: #### L 500.4100, L501.9985, L100.0500, L500.4050 ####[facility] [address] [place], [address] Bilirubin [Mass/Vol] 0.40 mg/dL Normal 0.00-1.30 [facility] Comment on above: Order Comment: 109.1 Performed By: #### L 500.4100, L501.9985, L100.0500, L500.4050 ####[facility] [address] [place], [address] BUN/CRE 30.1 RATIO High 10-20 [facility] Comment on above: Order Comment: 109.1 Performed By: #### L 500.4100, L501.9985, L100.0500, L500.4050 ####[facility] [address] [place], [address] Calcium [Mass/Vol] 8.6 mg/dL Normal 7.6-11.0 [facility] Comment on above: Order Comment: 109.1 Performed By: #### L 500.4100, L501.9985, L100.0500, L500.4050 ####[facility] [address] [place], [address] Chloride [Moles/Vol] 104 mmol/L Normal 98-108 [facility] Comment on above: Order Comment: 109.1 Performed By: #### L 500.4100, L501.9985, L100.0500, L500.4050 ####[facility] [address] [place], [address] CO2 [Moles/Vol] 22.4 mmol/L Normal 21.0-32.0 [facility] Comment on above: Order Comment: 109.1 Performed By: #### L 500.4100, L501.9985, L100.0500, L500.4050 ####[facility] [address] [place], [address] Creatinine [Mass/Vol] 0.63 mg/dL Low 0.70-1.20 [facility] Comment on above: Order Comment: 109.1 Performed By: #### L 500.4100, L501.9985, L100.0500, L500.4050 ####[facility] [address] [place], [address] GAP 10 Normal 5-15 [facility] Comment on above: Order Comment: 109.1 Performed By: #### L 500.4100, L501.9985, L100.0500, L500.4050 ####[facility] [address] [place], [address] GFR/1.73 sq M.predicted among non-blacks MDRD (S/P/Bld) [Vol rate/Area] 104 mL/min/{1.73_m2} Normal >60 [facility] Comment on above: Order Comment: 109.1 Result Comment: mL/m in/1.73m2 CKD-EPI Creatinine Equation (2020) Performed By: #### L 500.4100, L501.9985, L100.0500, L500.4050 ####[facility] [address] [place], [address] Globulin (S) [Mass/Vol] 3.0 g/dL Normal 2.2-4.2 [facility] Comment on above: Order Comment: 109.1 Performed By: #### L 500.4100, L501.9985, L100.0500, L500.4050 ####[facility] [address] [place], [address] Glucose [Mass/Vol] 104 mg/dL High 70-99 [facility] Comment on above: Order Comment: 109.1 Performed By: #### L 500.4100, L501.9985, L100.0500, L500.4050 ####[facility] [address] [place], [address] Potassium [Moles/Vol] 5.0 mmol/L Normal 3.3-5.1 [facility] Comment on above: Order Comment: 109.1 Result Comment: Hemo lysis present, Results??could be affected.?? Performed By: #### L 500.4100, L501.9985, L100.0500, L500.4050 ####[facility] [address] [place], [address] Sodium [Moles/Vol] 137 mmol/L Normal 133-145 [facility] Comment on above: Order Comment: 109.1 Performed By: #### L 500.4100, L501.9985, L100.0500, L500.4050 ####[facility] [address] [place], [address] T PROT 6.3 g/dL Normal 5.9-8.4 [facility] Comment on above: Order Comment: 109.1 Performed By: #### L 500.4100, L501.9985, L100.0500, L500.4050 ####[facility] [address] [place], [address] Urea nitrogen [Mass/Vol] 19 mg/dL Normal 4-19 [facility] Comment on above: Order Comment: 109.1 Performed By: #### L 500.4100, L501.9985, L100.0500, L500.4050 ####[facility] [address] [place], [address] Erythrocyte distribution wid th ratioOrdered By: Renard Burgos on 02-21-2025 Erythrocyte distribution width (RBC) [Ratio] 13.7 % 11.6-14.6 [facility] Erythrocyte distribution wid th standard deviationOrdered By: Renard Burgos on 02-21-2025 Erythrocyte distribution width (RBC) [Ratio] 46.5 fl High 35.1-43.9 [facility] Glomerular filtration rate ( GFR) estimation/1.73 sq m using serum, plasma, or whole bOrdered By: Renard Burgos on 02-21-2025 GFR/1.73 sq M.predicted among non-blacks MDRD (S/P/Bld) [Vol rate/Area] 104 mL/min/{1.73_m2} >60 [facility] Comment on above: mL/min/1.73m2 CKD-EP I Creatinine Equation (2020) Hematocrit Auto (Bld) [Volum e fraction]Ordered By: Renard Burgos on 02-21-2025 Hematocrit (Bld) [Volume fraction] 42.1 % 40-54 [facility] Hemoglobin A1con 02-21-2025 HbA1c (Bld) [Mass fraction] 5.4 % Normal <=5.6 [facility] Comment on above: Order Comment: 109.1 Result Comment: Norm al < 5.7 % Prediabetic 5.7 - 6.4 % Diabetic >or= 6.5 % Please note range changes. Performed By: #### L 500.4100, L501.9985, L100.0500, L500.4050 ####[facility] [address] [place], [place], [id number] Hemoglobin A1c percentageOrd ered By: Renard Burgos on 02-21-2025 HbA1c (Bld) [Mass fraction] 5.4 % <5.7 [facility] Comment on above: Normal < 5.7 % Predi abetic 5.7 - 6.4 % Diabetic >or= 6.5 % Please note range changes. Hemoglobin measurementOrdere d By: Renard Burgos on 02-21-2025 Hemoglobin (Bld) [Mass/Vol] 13.6 g/dL 13.0-16.5 [facility] LDL calc ser/plasOrdered By: Renard Burgos on 02-21-2025 Cholesterol in LDL [Mass/Vol] 75 mg/dL [facility] Comment on above: Otkrfccedl=202-736 m g/dL & Higher Amxg=506 mg/dL or greaterSampson Equation 2019 for LDL-C Laboratory - Chemistry and C hemistry - challengeOrdered By: Renard Burgos on 02-21-2025 AST [Catalytic activity/Vol] 39 U/L High <38 [facility] Comment on above: Hemolysis present, R esults could be affected. Lipid Profileon 02-21-2025 CHOL:HDL 4.32 Normal [facility] Comment on above: Order Comment: 109.1 Performed By: #### L 500.4100, L501.9985, L100.0500, L500.4050 ####[facility] [address] [place], [address] Cholesterol [Mass/Vol] 139 mg/dL Normal <=200 [facility] Comment on above: Order Comment: 109.1 Result Comment: Chol esterol level, Desirable <200 mg/dLBorderline high cholesterol 200-239 mg/dLHigh cholesterol >=240 mg/dLRecommendations of the NCEP Adult Treatment Panel for thefollowing risk-cutoff thresholds for the [place] Americanpopulation. Performed By: #### L 500.4100, L501.9985, L100.0500, L500.4050 ####[facility] [address] [place], [address] Cholesterol in HDL [Mass/Vol] 32 mg/dL Low [facility] Comment on above: Order Comment: 109.1 Result Comment: Lucy onal Cholesterol Education Program (NCEP) guidelines:<40 mg/dL: Low HDL-cholesterol (major risk factor for CHD)>= 60 mg/dL: High HDL-cholesterol (negative risk factor forCHD)HDL-cholesterol is affected by a number of factors, e.g.smoking, exercise, hormones, sex and age. Performed By: #### L 500.4100, L501.9985, L100.0500, L500.4050 ####[facility] [address] [place], [address] Cholesterol in LDL [Mass/Vol] 75 mg/dL Normal [facility] Comment on above: Order Comment: 109.1 Result Comment: Bord xddked=770-387 mg/dL Higher Vlyl=286 mg/dL or greaterSampson Equation 2020 for LDL-C Performed By: #### L 500.4100, L501.9985, L100.0500, L500.4050 ####[facility] [address] [place], [address] Cholesterol in VLDL [Mass/Vol] 37 mg/dL Normal 5-40 [facility] Comment on above: Order Comment: 109.1 Performed By: #### L 500.4100, L501.9985, L100.0500, L500.4050 ####[facility] [address] [place], [address] Triglyceride [Mass/Vol] 185 mg/dL Normal [facility] Comment on above: Order Comment: 109.1 Result Comment: The drugs N-Acetylcysteine and Metamizole may falselydepress this assay.Normal range: <150 mg/dLBorderline High: 150-199 mg/dLHigh: 200-499 mg/dLVery High: >500 mg/dL Performed By: #### L 500.4100, L501.9985, L100.0500, L500.4050 ####[facility] [address] [place], [address] MCV (mean corpuscular volume ) determinationOrdered By: Renard Burgos on 02-21-2025 MCV (RBC) [Entitic vol] 93.3 fL 80-94 [facility] Mean corpuscular hemoglobin (MCH) determinationOrdered By: Renard Burgos on 02-21-2025 MCH (RBC) [Entitic mass] 30.2 pg 27.0-32.0 [facility] Mean corpuscular hemoglobin concentration (MCHC) determinationOrdered By: Renard Burgos on 02-21-2025 MCHC (RBC) [Mass/Vol] 32.3 g/dL 32-36 [facility] Mean platelet volume determi nationOrdered By: Renard Burgos on 02-21-2025 Platelet mean volume (Bld) [Entitic vol] 11.6 fL 6.2-12.0 [facility] Platelet countOrdered By: Garrick Bhatt on 02-21-2025 Platelets (Bld) [#/Vol] 173 10*3/uL 150-450 [facility] Potassium measurement (mass/ volume)Ordered By: Renard Burgos on 02-21-2025 Potassium (Unsp spec) [Mass/Vol] 5.0 mmol/L 3.3-5.1 [facility] Comment on above: Hemolysis present, R esults could be affected. RBC Auto (Bld) [#/Vol]Ordere d By: Renard Burgos on 02-21-2025 RBC (Bld) [#/Vol] 4.51 10*6/uL Low 4.6-6.2 [facility] Screening total cholesterol/ high density lipoprotein (HDL) cholesterol ratioOrdered By: Renard Burgos on 02-21-2025 Cholesterol.total/Cecilia sterol in HDL [Mass ratio] 4.32 {ratio} [facility] Serum creatinine measurement (mass/volume)Ordered By: Renard Burgos on 02-21-2025 Creatinine [Mass/Vol] 0.63 mg/dL Low 0.70-1.20 [facility] Serum globulin measurementOr dered By: Renard Burgos on 02-21-2025 Globulin (S) [Mass/Vol] 3.0 g/dL 2.2-4.2 [facility] Serum glucose measurement (m ass/volume)Ordered By: Renard Burgos on 02-21-2025 Glucose [Mass/Vol] 104 mg/dL High 70-99 [facility] Serum or plasma alanine kay otransferase (ALT) measurementOrdered By: Renard Burgos on 02-21-2025 ALT [Catalytic activity/Vol] 22 U/L <47 [facility] Comment on above: Hemolysis present, R esults could be affected. Serum or plasma albumin gordy urement (mass/volume)Ordered By: Renard Burgos on 02-21-2025 Albumin [Mass/Vol] 3.3 g/dL Low 3.4-4.8 [facility] Serum or plasma albumin/glob ulin mass ratioOrdered By: Renard Burgos on 02-21-2025 Albumin/Globulin [Mass ratio] 1.1 {ratio} 0.9-2.4 [facility] Serum or plasma alkaline trace sphatase measurementOrdered By: Renard Burgos on 02-21-2025 ALP [Catalytic activity/Vol] 137 U/L High 40-129 [facility] Serum or plasma calcium gordy urement (mass/volume)Ordered By: Renard Burgos on 02-21-2025 Calcium [Mass/Vol] 8.6 mg/dL 7.6-11.0 [facility] Serum or plasma cholesterol in HDL measurement (mass/volume)Ordered By: Renard Burgos on 02-21-2025 Cholesterol in HDL [Mass/Vol] 32 mg/dL Low >40 [facility] Comment on above: National Cholesterol Education Program (NCEP) guidelines:<40 mg/dL: Low HDL-cholesterol (major risk factor for CHD)>= 60 mg/dL: High HDL-cholesterol (negative risk factor for CHD)HDL-cholesterol is affected by a number of factors, e.g. smoking, exercise, hormones, sex and age. Serum or plasma cholesterol measurement (mass/volume)Ordered By: Renrad Burgos on 02-21-2025 Cholesterol [Mass/Vol] 139 mg/dL <201 [facility] Comment on above: Cholesterol level, D esirable <200 mg/dLBorderline high cholesterol 200-239 mg/dLHigh cholesterol >=240 mg/dLRecommendations of the NCEP Adult Treatment Panel for the following risk-cutoff thresholds for the [place] population. Serum or plasma urea nitroge n measurement (mass/volume)Ordered By: Renard Burgos on 02-21-2025 Urea nitrogen [Mass/Vol] 19 mg/dL 4-19 [facility] Sodium levelOrdered By: Lamine Burgos on 02-21-2025 Sodium [Moles/Vol] 137 mmol/L 133-145 [facility] Total proteinOrdered By: Lyubov Burgos on 02-21-2025 Protein [Mass/Vol] 6.3 g/dL 5.9-8.4 [facility] Triglycerides measurementOrd ered By: Renard Burgos on 02-21-2025 Triglyceride [Mass/Vol] 185 mg/dL <199 [facility] Comment on above: The drugs N-Acetylcy steine and Metamizole may falsely depress this assay. Normal range: <150 mg/dLBorderline High: 150-199 mg/dLHigh: 200-499 mg/dLVery High: >500 mg/dL White blood cell (WBC) count Ordered By: Renard Burgos on 02-21-2025 WBC (Bld) [#/Vol] 10.2 10*3/uL 4.4-11.0 [facility] Absolute lymphocyte countOrd ered By: Renard Burgos on 02-17-2025 Lymphocytes Auto (Unsp spec) [#/Vol] 2.31 10*3/uL 0.83-4.51 [facility] Absolute neutrophil countOrd ered By: Renard Burgos on 02-17-2025 Neutrophils (Bld) [#/Vol] 5.5 10*3/uL 2.0-7.7 [facility] Automated lymphocyte count a s percentage of total leukocytesOrdered By: Renard Burgos on 02-17-2025 Lymphocytes/100 WBC Auto (Unsp spec) 26.1 % 19-41 [facility] Basophil percentageOrdered B y: Renard Burgos on 02-17-2025 Basophils/100 WBC (Bld) 0.6 % 0-1 [facility] CBC W/Diff, Automatedon 01-30-2024 Absolute Lymph 2.31 X10 3/uL Normal 0.83-4.51 [facility] Comment on above: Order Comment: 109.1 Performed By: #### L 100.0100 ####[facility] [address] [place], [address] Absolute Neut 5.5 X10 3/uL Normal 2.0-7.7 [facility] Comment on above: Order Comment: 109.1 Performed By: #### L 100.0100 ####[facility] [address] [place], [address] Basophils/100 WBC (Bld) 0.6 % Normal 0-1 [facility] Comment on above: Order Comment: 109.1 Performed By: #### L 100.0100 ####[facility] [address] [place], [address] Eosinophils/100 WBC (Bld) 0.9 % Normal 0-5 [facility] Comment on above: Order Comment: 109.1 Performed By: #### L 100.0100 ####[facility] [address] [place], [address] Erythrocyte distribution width (RBC) [Ratio] 13.8 % Normal 11.6-14.6 [facility] Comment on above: Order Comment: 109.1 Performed By: #### L 100.0100 ####[facility] [address] [place], [address] Hematocrit (Bld) [Volume fraction] 43.6 % Normal 40-54 [facility] Comment on above: Order Comment: 109.1 Performed By: #### L 100.0100 ####[facility] [address] [place], [address] Hemoglobin (Bld) [Mass/Vol] 14.2 g/dL Normal 13.0-16.5 [facility] Comment on above: Order Comment: 109.1 Performed By: #### L 100.0100 ####[facility] [address] [place], [address] IG% 0.300 Normal 0.0-0.9 [facility] Comment on above: Order Comment: 109.1 Result Comment: IG% - Immature Granulocytes (promyelocytes, myelocytes andmetamyelocytes) > 1% indicates that a LEFT SHIFT is Present. Performed By: #### L 100.0100 ####[facility] [address] [place], [address] Lymphocytes/100 WBC (Bld) 26.1 % Normal 19-41 [facility] Comment on above: Order Comment: 109.1 Performed By: #### L 100.0100 ####[facility] [address] [place], [address] MCH (RBC) [Entitic mass] 30.4 pg Normal 27.0-32.0 [facility] Comment on above: Order Comment: 109.1 Performed By: #### L 100.0100 ####[facility] [address] [place], [address] MCHC (RBC) [Mass/Vol] 32.6 g/dL Normal 32-36 [facility] Comment on above: Order Comment: 109.1 Performed By: #### L 100.0100 ####[facility] [address] [place], [address] MCV (RBC) [Entitic vol] 93.4 fL Normal 80-94 [facility] Comment on above: Order Comment: 109.1 Performed By: #### L 100.0100 ####[facility] [address] [place], [address] Monocytes/100 WBC (Bld) 10.4 % High 0-10 [facility] Comment on above: Order Comment: 109.1 Performed By: #### L 100.0100 ####[facility] [address] [place], [address] Neutrophils/100 WBC (Bld) 61.7 % Normal 47-70 [facility] Comment on above: Order Comment: 109.1 Performed By: #### L 100.0100 ####[facility] [address] [place], [address] Nucleated RBC (Bld) [#/Vol] 0 10*3/uL Normal 0-5 [facility] Comment on above: Order Comment: 109.1 Performed By: #### L 100.0100 ####[facility] [address] [place], [address] Platelet mean volume (Bld) [Entitic vol] 11.3 fL Normal 6.2-12.0 [facility] Comment on above: Order Comment: 109.1 Performed By: #### L 100.0100 ####[facility] [address] [place], [address] Platelets (Bld) [#/Vol] 197 10*3/uL Normal 150-450 [facility] Comment on above: Order Comment: 109.1 Performed By: #### L 100.0100 ####[facility] [address] [place], [address] RBC (Bld) [#/Vol] 4.67 10*6/uL Normal 4.6-6.2 [facility] Comment on above: Order Comment: 109.1 Performed By: #### L 100.0100 ####[facility] [address] [place], [address] RDW SD 47.2 fl High 35.1-43.9 [facility] Comment on above: Order Comment: 109.1 Performed By: #### L 100.0100 ####[facility] [address] [place], [address] WBC (Bld) [#/Vol] 8.9 10*3/uL Normal 4.4-11.0 [facility] Comment on above: Order Comment: 109.1 Performed By: #### L 100.0100 ####[facility] [address] [place], [address] Eosinophil percentageOrdered By: Renard Burgos on 02-17-2025 Eosinophils/100 WBC (Bld) 0.9 % 0-5 [facility] Erythrocyte distribution wid th ratioOrdered By: Renard Burgos on 02-17-2025 Erythrocyte distribution width (RBC) [Ratio] 13.8 % 11.6-14.6 [facility] Erythrocyte distribution wid th standard deviationOrdered By: Renard Burgos on 02-17-2025 Erythrocyte distribution width (RBC) [Ratio] 47.2 fl High 35.1-43.9 [facility] Hematocrit Auto (Bld) [Volum e fraction]Ordered By: Renard Burgos on 02-17-2025 Hematocrit (Bld) [Volume fraction] 43.6 % 40-54 [facility] Hemoglobin measurementOrdere d By: Renard Burgos on 02-17-2025 Hemoglobin (Bld) [Mass/Vol] 14.2 g/dL 13.0-16.5 [facility] Immature granulocytes/100 WB C Auto (Bld)Ordered By: Renard Burgos on 02-17-2025 Immature granulocytes/100 WBC (Bld) 0.300 % 0.0-0.9 [facility] Comment on above: IG% - Immature Granu locytes (promyelocytes, myelocytes and metamyelocytes) > 1% indicates that a LEFT SHIFT is Present. MCV (mean corpuscular volume ) determinationOrdered By: Renard Burgos on 02-17-2025 MCV (RBC) [Entitic vol] 93.4 fL 80-94 [facility] Mean corpuscular hemoglobin (MCH) determinationOrdered By: Renard Burgos on 02-17-2025 MCH (RBC) [Entitic mass] 30.4 pg 27.0-32.0 [facility] Mean corpuscular hemoglobin concentration (MCHC) determinationOrdered By: Renard Burgos on 02-17-2025 MCHC (RBC) [Mass/Vol] 32.6 g/dL 32-36 [facility] Mean platelet volume determi nationOrdered By: Renard Burgos on 02-17-2025 Platelet mean volume (Bld) [Entitic vol] 11.3 fL 6.2-12.0 [facility] Monocyte percentageOrdered B y: Renard Burgos on 02-17-2025 Monocytes/100 WBC (Bld) 10.4 % High 0-10 [facility] Neutrophil percentageOrdered By: Renard Burgos on 02-17-2025 Neutrophils/100 WBC (Bld) 61.7 % 47-70 [facility] Nucleated red blood cell per centageOrdered By: Renard Burgos on 02-17-2025 Nucleated RBC/100 WBC (Bld) [Ratio] 0 % 0-5 [facility] Platelet countOrdered By: Garrick Bhatt on 02-17-2025 Platelets (Bld) [#/Vol] 197 10*3/uL 150-450 [facility] RBC Auto (Bld) [#/Vol]Ordere d By: Renard Burgos on 02-17-2025 RBC (Bld) [#/Vol] 4.67 10*6/uL 4.6-6.2 [facility] White blood cell (WBC) count Ordered By: Renard Burgos on 02-17-2025 WBC (Bld) [#/Vol] 8.9 10*3/uL 4.4-11.0 [facility] Absolute lymphocyte countOrd ered By: Renard Burgos on 02-10-2025 Lymphocytes Auto (Unsp spec) [#/Vol] 2.53 10*3/uL 0.83-4.51 [facility] Absolute neutrophil countOrd ered By: Renard Burgos on 02-10-2025 Neutrophils (Bld) [#/Vol] 5.5 10*3/uL 2.0-7.7 [facility] Automated lymphocyte count a s percentage of total leukocytesOrdered By: Renard Hensleyhola on 02-10-2025 Lymphocytes/100 WBC Auto (Unsp spec) 28.0 % 19-41 [facility] Basophil percentageOrdered B y: Renard Hensleyrustam on 02-10-2025 Basophils/100 WBC (Bld) 0.7 % 0-1 [facility] CBC W/Diff, Automatedon 01-29 Absolute Lymph 2.53 X10 3/uL Normal 0.83-4.51 [facility] Comment on above: Order Comment: 109 Performed By: #### L 100.0100 ####[facility] [address] [place], [address] Absolute Neut 5.5 X10 3/uL Normal 2.0-7.7 [facility] Comment on above: Order Comment: 109 Performed By: #### L 100.0100 ####[facility] [address] [place], [address] Basophils/100 WBC (Bld) 0.7 % Normal 0-1 [facility] Comment on above: Order Comment: 109 Performed By: #### L 100.0100 ####[facility] [address] [place], [address] Eosinophils/100 WBC (Bld) 0.8 % Normal 0-5 [facility] Comment on above: Order Comment: 109 Performed By: #### L 100.0100 ####[facility] [address] [place], [address] Erythrocyte distribution width (RBC) [Ratio] 13.6 % Normal 11.6-14.6 [facility] Comment on above: Order Comment: 109 Performed By: #### L 100.0100 ####[facility] [address] [place], [address] Hematocrit (Bld) [Volume fraction] 43.9 % Normal 40-54 [facility] Comment on above: Order Comment: 109 Performed By: #### L 100.0100 ####[facility] [address] [place], [address] Hemoglobin (Bld) [Mass/Vol] 14.2 g/dL Normal 13.0-16.5 [facility] Comment on above: Order Comment: 109 Performed By: #### L 100.0100 ####[facility] [address] [place], [address] IG% 0.300 Normal 0.0-0.9 [facility] Comment on above: Order Comment: 109 Result Comment: IG% - Immature Granulocytes (promyelocytes, myelocytes andmetamyelocytes) > 1% indicates that a LEFT SHIFT is Present. Performed By: #### L 100.0100 ####[facility] [address] [place], [address] Lymphocytes/100 WBC (Bld) 28.0 % Normal 19-41 [facility] Comment on above: Order Comment: 109 Performed By: #### L 100.0100 ####[facility] [address] [place], [address] MCH (RBC) [Entitic mass] 29.6 pg Normal 27.0-32.0 [facility] Comment on above: Order Comment: 109 Performed By: #### L 100.0100 ####[facility] [address] [place], [address] MCHC (RBC) [Mass/Vol] 32.3 g/dL Normal 32-36 [facility] Comment on above: Order Comment: 109 Performed By: #### L 100.0100 ####[facility] [address] [place], [address] MCV (RBC) [Entitic vol] 91.6 fL Normal 80-94 [facility] Comment on above: Order Comment: 109 Performed By: #### L 100.0100 ####[facility] [address] [place], [address] Monocytes/100 WBC (Bld) 8.9 % Normal 0-10 [facility] Comment on above: Order Comment: 109 Performed By: #### L 100.0100 ####[facility] [address] [place], [address] Neutrophils/100 WBC (Bld) 61.3 % Normal 47-70 [facility] Comment on above: Order Comment: 109 Performed By: #### L 100.0100 ####[facility] [address] [place], [address] Nucleated RBC (Bld) [#/Vol] 0 10*3/uL Normal 0-5 [facility] Comment on above: Order Comment: 109 Performed By: #### L 100.0100 ####[facility] [address] [place], [address] Platelet mean volume (Bld) [Entitic vol] 11.3 fL Normal 6.2-12.0 [facility] Comment on above: Order Comment: 109 Performed By: #### L 100.0100 ####[facility] [address] [place], [address] Platelets (Bld) [#/Vol] 217 10*3/uL Normal 150-450 [facility] Comment on above: Order Comment: 109 Performed By: #### L 100.0100 ####[facility] [address] [place], [address] RBC (Bld) [#/Vol] 4.79 10*6/uL Normal 4.6-6.2 [facility] Comment on above: Order Comment: 109 Performed By: #### L 100.0100 ####[facility] [address] [place], [address] RDW SD 45.8 fl High 35.1-43.9 [facility] Comment on above: Order Comment: 109 Performed By: #### L 100.0100 ####[facility] [address], [address] WBC (Bld) [#/Vol] 9.0 10*3/uL Normal 4.4-11.0 [facility] Comment on above: Order Comment: 109 Performed By: #### L 100.0100 ####[facility] [address] [place], [address] Eosinophil percentageOrdered By: Renard Burgos on 02-10-2025 Eosinophils/100 WBC (Bld) 0.8 % 0-5 [facility] Erythrocyte distribution wid th ratioOrdered By: Renard Burgos on 02-10-2025 Erythrocyte distribution width (RBC) [Ratio] 13.6 % 11.6-14.6 [facility] Erythrocyte distribution wid th standard deviationOrdered By: Renard Burgos on 02-10-2025 Erythrocyte distribution width (RBC) [Ratio] 45.8 fl High 35.1-43.9 [facility] Hematocrit Auto (Bld) [Volum e fraction]Ordered By: Renard Burgos on 02-10-2025 Hematocrit (Bld) [Volume fraction] 43.9 % 40-54 [facility] Hemoglobin measurementOrdere d By: Renard Burgos on 02-10-2025 Hemoglobin (Bld) [Mass/Vol] 14.2 g/dL 13.0-16.5 [facility] Immature granulocytes/100 WB C Auto (Bld)Ordered By: Renard Burgos on 02-10-2025 Immature granulocytes/100 WBC (Bld) 0.300 % 0.0-0.9 [facility] Comment on above: IG% - Immature Granu locytes (promyelocytes, myelocytes and metamyelocytes) > 1% indicates that a LEFT SHIFT is Present. MCV (mean corpuscular volume ) determinationOrdered By: Renard Burgos on 02-10-2025 MCV (RBC) [Entitic vol] 91.6 fL 80-94 [facility] Mean corpuscular hemoglobin (MCH) determinationOrdered By: Renard Burgos on 02-10-2025 MCH (RBC) [Entitic mass] 29.6 pg 27.0-32.0 [facility] Mean corpuscular hemoglobin concentration (MCHC) determinationOrdered By: Renard Burgos on 02-10-2025 MCHC (RBC) [Mass/Vol] 32.3 g/dL 32-36 [facility] Mean platelet volume determi nationOrdered By: Renard Burgos on 02-10-2025 Platelet mean volume (Bld) [Entitic vol] 11.3 fL 6.2-12.0 [facility] Monocyte percentageOrdered B y: Renard Burgos on 02-10-2025 Monocytes/100 WBC (Bld) 8.9 % 0-10 [facility] Neutrophil percentageOrdered By: Renard Burgos on 02-10-2025 Neutrophils/100 WBC (Bld) 61.3 % 47-70 [facility] Nucleated red blood cell per centageOrdered By: Renard Burgos on 02-10-2025 Nucleated RBC/100 WBC (Bld) [Ratio] 0 % 0-5 [facility] Platelet countOrdered By: Garrick Bhatt on 02-10-2025 Platelets (Bld) [#/Vol] 217 10*3/uL 150-450 [facility] RBC Auto (Bld) [#/Vol]Ordere d By: Renard Burgos on 02-10-2025 RBC (Bld) [#/Vol] 4.79 10*6/uL 4.6-6.2 [facility] White blood cell (WBC) count Ordered By: Renard Burgos on 02-10-2025 WBC (Bld) [#/Vol] 9.0 10*3/uL 4.4-11.0 [facility] Absolute lymphocyte countOrd ered By: Renard Burgos on 02-03-2025 Lymphocytes Auto (Unsp spec) [#/Vol] 2.12 10*3/uL 0.83-4.51 [facility] Absolute neutrophil countOrd ered By: Renard Burgos on 02-03-2025 Neutrophils (Bld) [#/Vol] 6.0 10*3/uL 2.0-7.7 [facility] Automated lymphocyte count a s percentage of total leukocytesOrdered By: Renard Burgos on 02-03-2025 Lymphocytes/100 WBC Auto (Unsp spec) 22.9 % 19-41 [facility] Basophil percentageOrdered B y: Renard Burgos on 02-03-2025 Basophils/100 WBC (Bld) 0.5 % 0-1 [facility] CBC W/Diff, Automatedon 10-0 Absolute Lymph 2.12 X10 3/uL Normal 0.83-4.51 [facility] Comment on above: Order Comment: 109.1 Performed By: #### L 100.0100 ####[facility] [address] [place], [address] Absolute Neut 6.0 X10 3/uL Normal 2.0-7.7 [facility] Comment on above: Order Comment: 109.1 Performed By: #### L 100.0100 ####[facility] [address] [place], [address] Basophils/100 WBC (Bld) 0.5 % Normal 0-1 [facility] Comment on above: Order Comment: 109.1 Performed By: #### L 100.0100 ####[facility] [address] [place], [address] Eosinophils/100 WBC (Bld) 0.8 % Normal 0-5 [facility] Comment on above: Order Comment: 109.1 Performed By: #### L 100.0100 ####[facility] [address] [place], [address] Erythrocyte distribution width (RBC) [Ratio] 13.2 % Normal 11.6-14.6 [facility] Comment on above: Order Comment: 109.1 Performed By: #### L 100.0100 ####[facility] [address] [place], [address] Hematocrit (Bld) [Volume fraction] 40.1 % Normal 40-54 [facility] Comment on above: Order Comment: 109.1 Performed By: #### L 100.0100 ####[facility] [address] [place], [address] Hemoglobin (Bld) [Mass/Vol] 13.4 g/dL Normal 13.0-16.5 [facility] Comment on above: Order Comment: 109.1 Performed By: #### L 100.0100 ####[facility] [address] [place], [address] IG% 0.400 Normal 0.0-0.9 [facility] Comment on above: Order Comment: 109.1 Result Comment: IG% - Immature Granulocytes (promyelocytes, myelocytes andmetamyelocytes) > 1% indicates that a LEFT SHIFT is Present. Performed By: #### L 100.0100 ####[facility] [address] [place], [address] Lymphocytes/100 WBC (Bld) 22.9 % Normal 19-41 [facility] Comment on above: Order Comment: 109.1 Performed By: #### L 100.0100 ####[facility] [address] [place], [address] MCH (RBC) [Entitic mass] 29.9 pg Normal 27.0-32.0 [facility] Comment on above: Order Comment: 109.1 Performed By: #### L 100.0100 ####[facility] [address] [place], [address] MCHC (RBC) [Mass/Vol] 33.4 g/dL Normal 32-36 [facility] Comment on above: Order Comment: 109.1 Performed By: #### L 100.0100 ####[facility] [address] [place], [address] MCV (RBC) [Entitic vol] 89.5 fL Normal 80-94 [facility] Comment on above: Order Comment: 109.1 Performed By: #### L 100.0100 ####[facility] [address] [place], [address] Monocytes/100 WBC (Bld) 10.8 % High 0-10 [facility] Comment on above: Order Comment: 109.1 Performed By: #### L 100.0100 ####[facility] [address] [place], [address] Neutrophils/100 WBC (Bld) 64.6 % Normal 47-70 [facility] Comment on above: Order Comment: 109.1 Performed By: #### L 100.0100 ####[facility] [address] [place], [address] Nucleated RBC (Bld) [#/Vol] 0 10*3/uL Normal 0-5 [facility] Comment on above: Order Comment: 109.1 Performed By: #### L 100.0100 ####[facility] [address] [place], [address] Platelet mean volume (Bld) [Entitic vol] 11.0 fL Normal 6.2-12.0 [facility] Comment on above: Order Comment: 109.1 Performed By: #### L 100.0100 ####[facility] [address] [place], [address] Platelets (Bld) [#/Vol] 243 10*3/uL Normal 150-450 [facility] Comment on above: Order Comment: 109.1 Performed By: #### L 100.0100 ####[facility] [address] [place], [address] RBC (Bld) [#/Vol] 4.48 10*6/uL Low 4.6-6.2 [facility] Comment on above: Order Comment: 109.1 Performed By: #### L 100.0100 ####[facility] [address] [place], [address] RDW SD 43.0 fl Normal 35.1-43.9 [facility] Comment on above: Order Comment: 109.1 Performed By: #### L 100.0100 ####[facility] [address] [place], [address] WBC (Bld) [#/Vol] 9.3 10*3/uL Normal 4.4-11.0 [facility] Comment on above: Order Comment: 109.1 Performed By: #### L 100.0100 ####[facility] [address] [place], [address] Eosinophil percentageOrdered By: Renard Burgos on 02-03-2025 Eosinophils/100 WBC (Bld) 0.8 % 0-5 [facility] Erythrocyte distribution wid th ratioOrdered By: Renard Burgos on 02-03-2025 Erythrocyte distribution width (RBC) [Ratio] 13.2 % 11.6-14.6 [facility] Erythrocyte distribution wid th standard deviationOrdered By: Renard Burgos on 02-03-2025 Erythrocyte distribution width (RBC) [Ratio] 43.0 fl 35.1-43.9 [facility] Hematocrit Auto (Bld) [Volum e fraction]Ordered By: Renard Burgos on 02-03-2025 Hematocrit (Bld) [Volume fraction] 40.1 % 40-54 [facility] Hemoglobin measurementOrdere d By: Renard Burgos on 02-03-2025 Hemoglobin (Bld) [Mass/Vol] 13.4 g/dL 13.0-16.5 [facility] Immature granulocytes/100 WB C Auto (Bld)Ordered By: Renard Burgos on 02-03-2025 Immature granulocytes/100 WBC (Bld) 0.400 % 0.0-0.9 [facility] Comment on above: IG% - Immature Granu locytes (promyelocytes, myelocytes and metamyelocytes) > 1% indicates that a LEFT SHIFT is Present. MCV (mean corpuscular volume ) determinationOrdered By: Renard Burgos on 02-03-2025 MCV (RBC) [Entitic vol] 89.5 fL 80-94 [facility] Mean corpuscular hemoglobin (MCH) determinationOrdered By: Renard Burgos on 02-03-2025 MCH (RBC) [Entitic mass] 29.9 pg 27.0-32.0 [facility] Mean corpuscular hemoglobin concentration (MCHC) determinationOrdered By: Renard Burgos on 02-03-2025 MCHC (RBC) [Mass/Vol] 33.4 g/dL 32-36 [facility] Mean platelet volume determi nationOrdered By: Renard Burgos on 02-03-2025 Platelet mean volume (Bld) [Entitic vol] 11.0 fL 6.2-12.0 [facility] Monocyte percentageOrdered B y: Renard Burgos on 02-03-2025 Monocytes/100 WBC (Bld) 10.8 % High 0-10 [facility] Neutrophil percentageOrdered By: Renard Burgos on 02-03-2025 Neutrophils/100 WBC (Bld) 64.6 % 47-70 [facility] Nucleated red blood cell per centageOrdered By: Renard Burgos on 02-03-2025 Nucleated RBC/100 WBC (Bld) [Ratio] 0 % 0-5 [facility] Platelet countOrdered By: Garrick Bhatt on 02-03-2025 Platelets (Bld) [#/Vol] 243 10*3/uL 150-450 [facility] RBC Auto (Bld) [#/Vol]Ordere d By: Renard Burgos on 02-03-2025 RBC (Bld) [#/Vol] 4.48 10*6/uL Low 4.6-6.2 [facility] White blood cell (WBC) count Ordered By: Renard Burgos on 02-03-2025 WBC (Bld) [#/Vol] 9.3 10*3/uL 4.4-11.0 [facility] Absolute lymphocyte countOrd ered By: Renard Burgos on 01-27-2025 Lymphocytes Auto (Unsp spec) [#/Vol] 2.19 10*3/uL 0.83-4.51 [facility] Absolute neutrophil countOrd ered By: Renard Burgos on 01-27-2025 Neutrophils (Bld) [#/Vol] 6.3 10*3/uL 2.0-7.7 [facility] Automated lymphocyte count a s percentage of total leukocytesOrdered By: Renard Burogs on 01-27-2025 Lymphocytes/100 WBC Auto (Unsp spec) 23.7 % 19-41 [facility] Basophil percentageOrdered B y: Renard Burgos on 01-27-2025 Basophils/100 WBC (Bld) 0.3 % 0-1 [facility] CBC W/Diff, Automatedon 12-31 Absolute Lymph 2.19 X10 3/uL Normal 0.83-4.51 [facility] Comment on above: Order Comment: 109.1 Performed By: #### L 100.0100 ####[facility] [address] [place], [address] Absolute Neut 6.3 X10 3/uL Normal 2.0-7.7 [facility] Comment on above: Order Comment: 109.1 Performed By: #### L 100.0100 ####[facility] [address] [place], [address] Basophils/100 WBC (Bld) 0.3 % Normal 0-1 [facility] Comment on above: Order Comment: 109.1 Performed By: #### L 100.0100 ####[facility] [address] [place], [address] Eosinophils/100 WBC (Bld) 0.6 % Normal 0-5 [facility] Comment on above: Order Comment: 109.1 Performed By: #### L 100.0100 ####[facility] [address] [place], [address] Erythrocyte distribution width (RBC) [Ratio] 13.3 % Normal 11.6-14.6 [facility] Comment on above: Order Comment: 109.1 Performed By: #### L 100.0100 ####[facility] [address] [place], [address] Hematocrit (Bld) [Volume fraction] 38.2 % Low 40-54 [facility] Comment on above: Order Comment: 109.1 Performed By: #### L 100.0100 ####[facility] [address] [place], [address] Hemoglobin (Bld) [Mass/Vol] 12.9 g/dL Low 13.0-16.5 [facility] Comment on above: Order Comment: 109.1 Performed By: #### L 100.0100 ####[facility] [address] [place], [address] IG% 0.400 Normal 0.0-0.9 [facility] Comment on above: Order Comment: 109.1 Result Comment: IG% - Immature Granulocytes (promyelocytes, myelocytes andmetamyelocytes) > 1% indicates that a LEFT SHIFT is Present. Performed By: #### L 100.0100 ####[facility] [address] [place], [address] Lymphocytes/100 WBC (Bld) 23.7 % Normal 19-41 [facility] Comment on above: Order Comment: 109.1 Performed By: #### L 100.0100 ####[facility] [address] [place], [address] MCH (RBC) [Entitic mass] 30.2 pg Normal 27.0-32.0 [facility] Comment on above: Order Comment: 109.1 Performed By: #### L 100.0100 ####[facility] [address] [place], [address] MCHC (RBC) [Mass/Vol] 33.8 g/dL Normal 32-36 [facility] Comment on above: Order Comment: 109.1 Performed By: #### L 100.0100 ####[facility] [address] [place], [address] MCV (RBC) [Entitic vol] 89.5 fL Normal 80-94 [facility] Comment on above: Order Comment: 109.1 Performed By: #### L 100.0100 ####[facility] [address] [place], [address] Monocytes/100 WBC (Bld) 6.8 % Normal 0-10 [facility] Comment on above: Order Comment: 109.1 Performed By: #### L 100.0100 ####[facility] [address] [place], [address] Neutrophils/100 WBC (Bld) 68.2 % Normal 47-70 [facility] Comment on above: Order Comment: 109.1 Performed By: #### L 100.0100 ####[facility] [address] [place], [address] Nucleated RBC (Bld) [#/Vol] 0 10*3/uL Normal 0-5 [facility] Comment on above: Order Comment: 109.1 Performed By: #### L 100.0100 ####[facility] [address] [place], [address] Platelet mean volume (Bld) [Entitic vol] 10.6 fL Normal 6.2-12.0 [facility] Comment on above: Order Comment: 109.1 Performed By: #### L 100.0100 ####[facility] [address] [place], [address] Platelets (Bld) [#/Vol] 247 10*3/uL Normal 150-450 [facility] Comment on above: Order Comment: 109.1 Performed By: #### L 100.0100 ####[facility] [address] [place], [address] RBC (Bld) [#/Vol] 4.27 10*6/uL Low 4.6-6.2 [facility] Comment on above: Order Comment: 109.1 Performed By: #### L 100.0100 ####[facility] [address] [place], [address] RDW SD 43.2 fl Normal 35.1-43.9 [facility] Comment on above: Order Comment: 109.1 Performed By: #### L 100.0100 ####[facility] [address] [place], [address] WBC (Bld) [#/Vol] 9.3 10*3/uL Normal 4.4-11.0 [facility] Comment on above: Order Comment: 109.1 Performed By: #### L 100.0100 ####[facility] [address] [place], [address] Eosinophil percentageOrdered By: Renard Burgos on 01-27-2025 Eosinophils/100 WBC (Bld) 0.6 % 0-5 [facility] Erythrocyte distribution wid th ratioOrdered By: Renard Burgos on 01-27-2025 Erythrocyte distribution width (RBC) [Ratio] 13.3 % 11.6-14.6 [facility] Erythrocyte distribution wid th standard deviationOrdered By: Renard Burgos on 01-27-2025 Erythrocyte distribution width (RBC) [Ratio] 43.2 fl 35.1-43.9 [facility] Hematocrit Auto (Bld) [Volum e fraction]Ordered By: Renard Burgos on 01-27-2025 Hematocrit (Bld) [Volume fraction] 38.2 % Low 40-54 [facility] Hemoglobin measurementOrdere d By: Renard Burgos on 01-27-2025 Hemoglobin (Bld) [Mass/Vol] 12.9 g/dL Low 13.0-16.5 [facility] Immature granulocytes/100 WB C Auto (Bld)Ordered By: Renard Burgos on 01-27-2025 Immature granulocytes/100 WBC (Bld) 0.400 % 0.0-0.9 [facility] Comment on above: IG% - Immature Granu locytes (promyelocytes, myelocytes and metamyelocytes) > 1% indicates that a LEFT SHIFT is Present. MCV (mean corpuscular volume ) determinationOrdered By: Renard Burgos on 01-27-2025 MCV (RBC) [Entitic vol] 89.5 fL 80-94 [facility] Mean corpuscular hemoglobin (MCH) determinationOrdered By: Renard Burgos on 01-27-2025 MCH (RBC) [Entitic mass] 30.2 pg 27.0-32.0 [facility] Mean corpuscular hemoglobin concentration (MCHC) determinationOrdered By: Renard Burgos on 01-27-2025 MCHC (RBC) [Mass/Vol] 33.8 g/dL 32-36 [facility] Mean platelet volume determi nationOrdered By: Renard Burgos on 01-27-2025 Platelet mean volume (Bld) [Entitic vol] 10.6 fL 6.2-12.0 [facility] Monocyte percentageOrdered B y: Renard Burgos on 01-27-2025 Monocytes/100 WBC (Bld) 6.8 % 0-10 [facility] Neutrophil percentageOrdered By: Renard Burgos on 01-27-2025 Neutrophils/100 WBC (Bld) 68.2 % 47-70 [facility] Nucleated red blood cell per centageOrdered By: Renard Burgos on 01-27-2025 Nucleated RBC/100 WBC (Bld) [Ratio] 0 % 0-5 [facility] Platelet countOrdered By: Garrick Bhatt on 01-27-2025 Platelets (Bld) [#/Vol] 247 10*3/uL 150-450 [facility] RBC Auto (Bld) [#/Vol]Ordere d By: Renard Burgos on 01-27-2025 RBC (Bld) [#/Vol] 4.27 10*6/uL Low 4.6-6.2 [facility] White blood cell (WBC) count Ordered By: Renard Burgos on 01-27-2025 WBC (Bld) [#/Vol] 9.3 10*3/uL 4.4-11.0 [facility] Absolute lymphocyte countOrd ered By: Renard Burgos on 01-20-2025 Lymphocytes Auto (Unsp spec) [#/Vol] 2.11 10*3/uL 0.83-4.51 [facility] Absolute neutrophil countOrd ered By: Renard Burgos on 01-20-2025 Neutrophils (Bld) [#/Vol] 4.5 10*3/uL 2.0-7.7 [facility] Automated lymphocyte count a s percentage of total leukocytesOrdered By: Renard Hensleyrustam on 01-20-2025 Lymphocytes/100 WBC Auto (Unsp spec) 27.9 % 19-41 [facility] Basophil percentageOrdered B y: Renard Burgos on 01-20-2025 Basophils/100 WBC (Bld) 0.5 % 0-1 [facility] CBC W/Diff, Automatedon 12-31 Absolute Lymph 2.11 X10 3/uL Normal 0.83-4.51 [facility] Comment on above: Order Comment: 109.1 Performed By: #### L 100.0100 ####[facility] [address] [place], [address] Absolute Neut 4.5 X10 3/uL Normal 2.0-7.7 [facility] Comment on above: Order Comment: 109.1 Performed By: #### L 100.0100 ####[facility] [address] [place], [address] Basophils/100 WBC (Bld) 0.5 % Normal 0-1 [facility] Comment on above: Order Comment: 109.1 Performed By: #### L 100.0100 ####[facility] [address] [place], [address] Eosinophils/100 WBC (Bld) 1.1 % Normal 0-5 [facility] Comment on above: Order Comment: 109.1 Performed By: #### L 100.0100 ####[facility] [address] [place], [address] Erythrocyte distribution width (RBC) [Ratio] 13.1 % Normal 11.6-14.6 [facility] Comment on above: Order Comment: 109.1 Performed By: #### L 100.0100 ####[facility] [address] [place], [address] Hematocrit (Bld) [Volume fraction] 36.3 % Low 40-54 [facility] Comment on above: Order Comment: 109.1 Performed By: #### L 100.0100 ####[facility] [address] [place], [address] Hemoglobin (Bld) [Mass/Vol] 11.6 g/dL Low 13.0-16.5 [facility] Comment on above: Order Comment: 109.1 Performed By: #### L 100.0100 ####[facility] [address] [place], [address] IG% 0.700 Normal 0.0-0.9 [facility] Comment on above: Order Comment: 109.1 Result Comment: IG% - Immature Granulocytes (promyelocytes, myelocytes andmetamyelocytes) > 1% indicates that a LEFT SHIFT is Present. Performed By: #### L 100.0100 ####[facility] [address] [place], [address] Lymphocytes/100 WBC (Bld) 27.9 % Normal 19-41 [facility] Comment on above: Order Comment: 109.1 Performed By: #### L 100.0100 ####[facility] [address] [place], [address] MCH (RBC) [Entitic mass] 29.6 pg Normal 27.0-32.0 [facility] Comment on above: Order Comment: 109.1 Performed By: #### L 100.0100 ####[facility] [address] [place], [address] MCHC (RBC) [Mass/Vol] 32.0 g/dL Normal 32-36 [facility] Comment on above: Order Comment: 109.1 Performed By: #### L 100.0100 ####[facility] [address] [place], [address] MCV (RBC) [Entitic vol] 92.6 fL Normal 80-94 [facility] Comment on above: Order Comment: 109.1 Performed By: #### L 100.0100 ####[facility] [address] [place], [address] Monocytes/100 WBC (Bld) 10.1 % High 0-10 [facility] Comment on above: Order Comment: 109.1 Performed By: #### L 100.0100 ####[facility] [address] [place], [address] Neutrophils/100 WBC (Bld) 59.7 % Normal 47-70 [facility] Comment on above: Order Comment: 109.1 Performed By: #### L 100.0100 ####[facility] [address] [place], [address] Nucleated RBC (Bld) [#/Vol] 0 10*3/uL Normal 0-5 [facility] Comment on above: Order Comment: 109.1 Performed By: #### L 100.0100 ####[facility] [address] [place], [address] Platelet mean volume (Bld) [Entitic vol] 10.6 fL Normal 6.2-12.0 [facility] Comment on above: Order Comment: 109.1 Performed By: #### L 100.0100 ####[facility] [address] [place], [address] Platelets (Bld) [#/Vol] 248 10*3/uL Normal 150-450 [facility] Comment on above: Order Comment: 109.1 Performed By: #### L 100.0100 ####[facility] [address] [place], [address] RBC (Bld) [#/Vol] 3.92 10*6/uL Low 4.6-6.2 [facility] Comment on above: Order Comment: 109.1 Performed By: #### L 100.0100 ####[facility] [address] [place], [address] RDW SD 44.6 fl High 35.1-43.9 [facility] Comment on above: Order Comment: 109.1 Performed By: #### L 100.0100 ####[facility] [address] [place], [address] WBC (Bld) [#/Vol] 7.6 10*3/uL Normal 4.4-11.0 [facility] Comment on above: Order Comment: 109.1 Performed By: #### L 100.0100 ####[facility] [address] [facility] [place], [address] Eosinophil percentageOrdered By: Renard Burgos on 01-20-2025 Eosinophils/100 WBC (Bld) 1.1 % 0-5 [facility] Erythrocyte distribution wid th ratioOrdered By: Renard Burgos on 01-20-2025 Erythrocyte distribution width (RBC) [Ratio] 13.1 % 11.6-14.6 [facility] Erythrocyte distribution wid th standard deviationOrdered By: Renard Burgos on 01-20-2025 Erythrocyte distribution width (RBC) [Ratio] 44.6 fl High 35.1-43.9 [facility] Hematocrit Auto (Bld) [Volum e fraction]Ordered By: Renard Burgos on 01-20-2025 Hematocrit (Bld) [Volume fraction] 36.3 % Low 40-54 [facility] Hemoglobin measurementOrdere d By: Renard Burgos on 01-20-2025 Hemoglobin (Bld) [Mass/Vol] 11.6 g/dL Low 13.0-16.5 [facility] Immature granulocytes/100 WB C Auto (Bld)Ordered By: Renard Burgos on 01-20-2025 Immature granulocytes/100 WBC (Bld) 0.700 % 0.0-0.9 [facility] Comment on above: IG% - Immature Granu locytes (promyelocytes, myelocytes and metamyelocytes) > 1% indicates that a LEFT SHIFT is Present. MCV (mean corpuscular volume ) determinationOrdered By: Renard Burgos on 01-20-2025 MCV (RBC) [Entitic vol] 92.6 fL 80-94 [facility] Mean corpuscular hemoglobin (MCH) determinationOrdered By: Renard Burgos on 01-20-2025 MCH (RBC) [Entitic mass] 29.6 pg 27.0-32.0 [facility] Mean corpuscular hemoglobin concentration (MCHC) determinationOrdered By: Renard Burgos on 01-20-2025 MCHC (RBC) [Mass/Vol] 32.0 g/dL 32-36 [facility] Mean platelet volume determi nationOrdered By: Renard Burgos on 01-20-2025 Platelet mean volume (Bld) [Entitic vol] 10.6 fL 6.2-12.0 [facility] Monocyte percentageOrdered B y: Renard Burgos on 01-20-2025 Monocytes/100 WBC (Bld) 10.1 % High 0-10 [facility] Neutrophil percentageOrdered By: Renard Burgos on 01-20-2025 Neutrophils/100 WBC (Bld) 59.7 % 47-70 [facility] Nucleated red blood cell per centageOrdered By: Renard Burgos on 01-20-2025 Nucleated RBC/100 WBC (Bld) [Ratio] 0 % 0-5 [facility] Platelet countOrdered By: Garrick Bhatt on 01-20-2025 Platelets (Bld) [#/Vol] 248 10*3/uL 150-450 [facility] RBC Auto (Bld) [#/Vol]Ordere d By: Renard Burgos on 01-20-2025 RBC (Bld) [#/Vol] 3.92 10*6/uL Low 4.6-6.2 [facility] White blood cell (WBC) count Ordered By: Renard Burgos on 01-20-2025 WBC (Bld) [#/Vol] 7.6 10*3/uL 4.4-11.0 [facility] Absolute lymphocyte countOrd ered By: Renard Burgos on 01-13-2025 Lymphocytes Auto (Unsp spec) [#/Vol] 1.91 10*3/uL 0.83-4.51 [facility] Absolute neutrophil countOrd ered By: Renard Burgos on 01-13-2025 Neutrophils (Bld) [#/Vol] 6.4 10*3/uL 2.0-7.7 [facility] Automated lymphocyte count a s percentage of total leukocytesOrdered By: Renard Burgos on 01-13-2025 Lymphocytes/100 WBC Auto (Unsp spec) 20.7 % 19-41 [facility] Basophil percentageOrdered B y: Renard Burgos on 01-13-2025 Basophils/100 WBC (Bld) 0.5 % 0-1 [facility] CBC W/Diff, Automatedon 12-30 Absolute Lymph 1.91 X10 3/uL Normal 0.83-4.51 [facility] Comment on above: Order Comment: 109-1 Performed By: #### L 100.0100 ####[facility] [address] [place], [address] Absolute Neut 6.4 X10 3/uL Normal 2.0-7.7 [facility] Comment on above: Order Comment: 109-1 Performed By: #### L 100.0100 ####[facility] [address] [place], [address] Basophils/100 WBC (Bld) 0.5 % Normal 0-1 [facility] Comment on above: Order Comment: 109-1 Performed By: #### L 100.0100 ####[facility] [address] [place], [address] Eosinophils/100 WBC (Bld) 0.8 % Normal 0-5 [facility] Comment on above: Order Comment: 109-1 Performed By: #### L 100.0100 ####[facility] [address] [place], [address] Erythrocyte distribution width (RBC) [Ratio] 13.2 % Normal 11.6-14.6 [facility] Comment on above: Order Comment: 109-1 Performed By: #### L 100.0100 ####[facility] [address] [place], [address] Hematocrit (Bld) [Volume fraction] 40.2 % Normal 40-54 [facility] Comment on above: Order Comment: 109-1 Performed By: #### L 100.0100 ####[facility] [address] [place], [address] Hemoglobin (Bld) [Mass/Vol] 13.3 g/dL Normal 13.0-16.5 [facility] Comment on above: Order Comment: 109-1 Performed By: #### L 100.0100 ####[facility] [address] [place], [address] IG% 0.300 Normal 0.0-0.9 [facility] Comment on above: Order Comment: 109-1 Result Comment: IG% - Immature Granulocytes (promyelocytes, myelocytes andmetamyelocytes) > 1% indicates that a LEFT SHIFT is Present. Performed By: #### L 100.0100 ####[facility] [address] [place], [address] Lymphocytes/100 WBC (Bld) 20.7 % Normal 19-41 [facility] Comment on above: Order Comment: 109-1 Performed By: #### L 100.0100 ####[facility] [address] [place], [address] MCH (RBC) [Entitic mass] 30.4 pg Normal 27.0-32.0 [facility] Comment on above: Order Comment: 109-1 Performed By: #### L 100.0100 ####[facility] [address] [place], [address] MCHC (RBC) [Mass/Vol] 33.1 g/dL Normal 32-36 [facility] Comment on above: Order Comment: 109-1 Performed By: #### L 100.0100 ####[facility] [address] [place], [address] MCV (RBC) [Entitic vol] 92.0 fL Normal 80-94 [facility] Comment on above: Order Comment: 109-1 Performed By: #### L 100.0100 ####[facility] [address] [place], [address] Monocytes/100 WBC (Bld) 8.1 % Normal 0-10 [facility] Comment on above: Order Comment: 109-1 Performed By: #### L 100.0100 ####[facility] [address] [place], [address] Neutrophils/100 WBC (Bld) 69.6 % Normal 47-70 [facility] Comment on above: Order Comment: 109-1 Performed By: #### L 100.0100 ####[facility] [address] [place], [address] Nucleated RBC (Bld) [#/Vol] 0 10*3/uL Normal 0-5 [facility] Comment on above: Order Comment: 109-1 Performed By: #### L 100.0100 ####[facility] [address] [place], [address] Platelet mean volume (Bld) [Entitic vol] 11.5 fL Normal 6.2-12.0 [facility] Comment on above: Order Comment: 109-1 Performed By: #### L 100.0100 ####[facility] [address] [place], [address] Platelets (Bld) [#/Vol] 198 10*3/uL Normal 150-450 [facility] Comment on above: Order Comment: 109-1 Performed By: #### L 100.0100 ####[facility] [address] [place], [address] RBC (Bld) [#/Vol] 4.37 10*6/uL Low 4.6-6.2 [facility] Comment on above: Order Comment: 109-1 Performed By: #### L 100.0100 ####[facility] [address] [place], [address] RDW SD 44.6 fl High 35.1-43.9 [facility] Comment on above: Order Comment: 109-1 Performed By: #### L 100.0100 ####[facility] [address] [place], [address] WBC (Bld) [#/Vol] 9.2 10*3/uL Normal 4.4-11.0 [facility] Comment on above: Order Comment: 109-1 Performed By: #### L 100.0100 ####[facility] [address] [place], [address] Eosinophil percentageOrdered By: Renard Burgos on 01-13-2025 Eosinophils/100 WBC (Bld) 0.8 % 0-5 [facility] Erythrocyte distribution wid th ratioOrdered By: Renard Burgos on 01-13-2025 Erythrocyte distribution width (RBC) [Ratio] 13.2 % 11.6-14.6 [facility] Erythrocyte distribution wid th standard deviationOrdered By: Renard Burgos on 01-13-2025 Erythrocyte distribution width (RBC) [Ratio] 44.6 fl High 35.1-43.9 [facility] Hematocrit Auto (Bld) [Volum e fraction]Ordered By: Renard Burgos on 01-13-2025 Hematocrit (Bld) [Volume fraction] 40.2 % 40-54 [facility] Hemoglobin measurementOrdere d By: Renard Burgos on 01-13-2025 Hemoglobin (Bld) [Mass/Vol] 13.3 g/dL 13.0-16.5 [facility] Immature granulocytes/100 WB C Auto (Bld)Ordered By: Renard Burgos on 01-13-2025 Immature granulocytes/100 WBC (Bld) 0.300 % 0.0-0.9 [facility] Comment on above: IG% - Immature Granu locytes (promyelocytes, myelocytes and metamyelocytes) > 1% indicates that a LEFT SHIFT is Present. MCV (mean corpuscular volume ) determinationOrdered By: Renard Burgos on 01-13-2025 MCV (RBC) [Entitic vol] 92.0 fL 80-94 [facility] Mean corpuscular hemoglobin (MCH) determinationOrdered By: Renard Burgos on 01-13-2025 MCH (RBC) [Entitic mass] 30.4 pg 27.0-32.0 [facility] Mean corpuscular hemoglobin concentration (MCHC) determinationOrdered By: Renard Burgos on 01-13-2025 MCHC (RBC) [Mass/Vol] 33.1 g/dL 32-36 [facility] Mean platelet volume determi nationOrdered By: Renard Burgos on 01-13-2025 Platelet mean volume (Bld) [Entitic vol] 11.5 fL 6.2-12.0 [facility] Monocyte percentageOrdered B y: Renard Burgos on 01-13-2025 Monocytes/100 WBC (Bld) 8.1 % 0-10 [facility] Neutrophil percentageOrdered By: Renard Burgos on 01-13-2025 Neutrophils/100 WBC (Bld) 69.6 % 47-70 [facility] Nucleated red blood cell per centageOrdered By: Renard Burgos on 01-13-2025 Nucleated RBC/100 WBC (Bld) [Ratio] 0 % 0-5 [facility] Platelet countOrdered By: Garrick Bhatt on 01-13-2025 Platelets (Bld) [#/Vol] 198 10*3/uL 150-450 [facility] RBC Auto (Bld) [#/Vol]Ordere d By: Renard Burgos on 01-13-2025 RBC (Bld) [#/Vol] 4.37 10*6/uL Low 4.6-6.2 [facility] White blood cell (WBC) count Ordered By: Renard Burgos on 01-13-2025 WBC (Bld) [#/Vol] 9.2 10*3/uL 4.4-11.0 [facility] Anion gap in Serum or Plasma Ordered By: Renard Burgos on 01-10-2025 Anion gap [Moles/Vol] 9 mmol/L 5-15 [facility] BUN/creatinine ratioOrdered By: Renard Burgos on 01-10-2025 Urea nitrogen/Creatinine [Mass ratio] 27.7 mg/mg High - [facility] Basic Metabolic Profile (BMP )on 01-10-2025 BUN/CRE 27.7 RATIO High - [facility] Comment on above: Order Comment: 109.1 Performed By: #### L 500.2500 ####[facility] [address] [place], [address] Calcium [Mass/Vol] 8.2 mg/dL Normal 7.6-11.0 [facility] Comment on above: Order Comment: 109.1 Performed By: #### L 500.2500 ####[facility] [address] [place], [address] Chloride [Moles/Vol] 106 mmol/L Normal 98-108 [facility] Comment on above: Order Comment: 109.1 Performed By: #### L 500.2500 ####[facility] [address] [place], [address] CO2 [Moles/Vol] 25.6 mmol/L Normal 21.0-32.0 [facility] Comment on above: Order Comment: 109.1 Performed By: #### L 500.2500 ####[facility] [address] [place], [address] Creatinine [Mass/Vol] 0.54 mg/dL Low 0.70-1.20 [facility] Comment on above: Order Comment: 109.1 Performed By: #### L 500.2500 ####[facility] [address] [place], [address] GAP 9 Normal 5-15 [facility] Comment on above: Order Comment: 109.1 Performed By: #### L 500.2500 ####[facility] [address] [place], [address] GFR/1.73 sq M.predicted among non-blacks MDRD (S/P/Bld) [Vol rate/Area] 109 mL/min/{1.73_m2} Normal >60 [facility] Comment on above: Order Comment: 109.1 Result Comment: mL/m in/1.73m2 CKD-EPI Creatinine Equation (2020) Performed By: #### L 500.2500 ####[facility] [address] [place], [address] Glucose [Mass/Vol] 126 mg/dL High 70-99 [facility] Comment on above: Order Comment: 109.1 Performed By: #### L 500.2500 ####[facility] [address] [place], [address] Potassium [Moles/Vol] 3.8 mmol/L Normal 3.3-5.1 [facility] Comment on above: Order Comment: 109.1 Performed By: #### L 500.2500 ####[facility] [address] [place], [address] Sodium [Moles/Vol] 140 mmol/L Normal 133-145 [facility] Comment on above: Order Comment: 109.1 Performed By: #### L 500.2500 ####[facility] [address] [place], [address] Urea nitrogen [Mass/Vol] 15 mg/dL Normal 4-19 [facility] Comment on above: Order Comment: 109.1 Performed By: #### L 500.2500 ####[facility] [address] [place], [address] Carbon dioxide, total [Moles /volume] in Central venous bloodOrdered By: Renard Burgos on 01-10-2025 CO2 [Moles/Vol] 25.6 mmol/L 21.0-32.0 [facility] Chloride assayOrdered By: Garrick Bhatt on 01-10-2025 Chloride [Moles/Vol] 106 mmol/L 98-108 [facility] Glomerular filtration rate ( GFR) estimation/1.73 sq m using serum, plasma, or whole bOrdered By: Renard Burgos on 01-10-2025 GFR/1.73 sq M.predicted among non-blacks MDRD (S/P/Bld) [Vol rate/Area] 109 mL/min/{1.73_m2} >60 [facility] Comment on above: mL/min/1.73m2 CKD-EP I Creatinine Equation (2020) Potassium measurement (mass/ volume)Ordered By: Renard Burgos on 01-10-2025 Potassium (Unsp spec) [Mass/Vol] 3.8 mmol/L 3.3-5.1 [facility] Serum creatinine measurement (mass/volume)Ordered By: Renard Burgos on 01-10-2025 Creatinine [Mass/Vol] 0.54 mg/dL Low 0.70-1.20 [facility] Serum glucose measurement (m ass/volume)Ordered By: Renard Burgos on 01-10-2025 Glucose [Mass/Vol] 126 mg/dL High 70-99 [facility] Serum or plasma calcium gordy urement (mass/volume)Ordered By: Renard Burgos on 01-10-2025 Calcium [Mass/Vol] 8.2 mg/dL 7.6-11.0 [facility] Serum or plasma urea nitroge n measurement (mass/volume)Ordered By: Renard Burgos on 01-10-2025 Urea nitrogen [Mass/Vol] 15 mg/dL 4-19 [facility] Sodium levelOrdered By: Lamine Burgos on 01-10-2025 Sodium [Moles/Vol] 140 mmol/L 133-145 [facility] Absolute lymphocyte countOrd ered By: Renard Burgos on 01-06-2025 Lymphocytes Auto (Unsp spec) [#/Vol] 2.29 10*3/uL 0.83-4.51 [facility] Absolute neutrophil countOrd ered By: Renard Burgos on 01-06-2025 Neutrophils (Bld) [#/Vol] 5.6 10*3/uL 2.0-7.7 [facility] Automated lymphocyte count a s percentage of total leukocytesOrdered By: Renard Burgos on 01-06-2025 Lymphocytes/100 WBC Auto (Unsp spec) 26.1 % 19-41 [facility] Basophil percentageOrdered B y: Renard Burgos on 01-06-2025 Basophils/100 WBC (Bld) 0.6 % 0-1 [facility] CBC W/Diff, Automatedon PLT EST ADEQUATE Normal ADEQ [facility] Comment on above: Order Comment: 109.1 Performed By: #### L 100.0100 ####[facility] [address] [place], [address] Eosinophil percentageOrdered By: Renard Burgos on 01-06-2025 Eosinophils/100 WBC (Bld) 1.1 % 0-5 [facility] Erythrocyte distribution wid th ratioOrdered By: Renard Burgos on 01-06-2025 Erythrocyte distribution width (RBC) [Ratio] 13.2 % 11.6-14.6 [facility] Erythrocyte distribution wid th standard deviationOrdered By: Renard Burgos on 01-06-2025 Erythrocyte distribution width (RBC) [Ratio] 44.2 fl High 35.1-43.9 [facility] Hematocrit Auto (Bld) [Volum e fraction]Ordered By: Renard Burgos on 01-06-2025 Hematocrit (Bld) [Volume fraction] 43.3 % 40-54 [facility] Hemoglobin measurementOrdere d By: Renard Burgos on 01-06-2025 Hemoglobin (Bld) [Mass/Vol] 14.2 g/dL 13.0-16.5 [facility] Immature granulocytes/100 WB C Auto (Bld)Ordered By: Renard Burgos on 01-06-2025 Immature granulocytes/100 WBC (Bld) 0.300 % 0.0-0.9 [facility] Comment on above: IG% - Immature Granu locytes (promyelocytes, myelocytes and metamyelocytes) > 1% indicates that a LEFT SHIFT is Present. MCV (mean corpuscular volume ) determinationOrdered By: Renard Burgos on 01-06-2025 MCV (RBC) [Entitic vol] 92.7 fL 80-94 [facility] Mean corpuscular hemoglobin (MCH) determinationOrdered By: Renard Burgos on 01-06-2025 MCH (RBC) [Entitic mass] 30.4 pg 27.0-32.0 [facility] Mean corpuscular hemoglobin concentration (MCHC) determinationOrdered By: Renard Burgos on 01-06-2025 MCHC (RBC) [Mass/Vol] 32.8 g/dL 32-36 [facility] Mean platelet volume determi nationOrdered By: Renard Burgos on 01-06-2025 Platelet mean volume (Bld) [Entitic vol] 11.5 fL 6.2-12.0 [facility] Monocyte percentageOrdered B y: Renard Burgos on 01-06-2025 Monocytes/100 WBC (Bld) 8.5 % 0-10 [facility] Neutrophil percentageOrdered By: Renard Burgos on 01-06-2025 Neutrophils/100 WBC (Bld) 63.4 % 47-70 [facility] Nucleated red blood cell per centageOrdered By: Renard Burgos on 01-06-2025 Nucleated RBC/100 WBC (Bld) [Ratio] 0 % 0-5 [facility] Platelet countOrdered By: Garrick Bhatt on 01-06-2025 Platelets (Bld) [#/Vol] 197 10*3/uL 150-450 [facility] Platelet estimateOrdered By: Renard Burgos on 01-06-2025 Platelets LM Ql (Bld) ADEQUATE ADEQ [facility] RBC Auto (Bld) [#/Vol]Ordere d By: Renard Burgos on 01-06-2025 RBC (Bld) [#/Vol] 4.67 10*6/uL 4.6-6.2 [facility] White blood cell (WBC) count Ordered By: Renard Burgos on 01-06-2025 WBC (Bld) [#/Vol] 8.8 10*3/uL 4.4-11.0 [facility] Absolute lymphocyte countOrd ered By: Renard Burgos on 12-31-2024 Lymphocytes Auto (Unsp spec) [#/Vol] 1.87 10*3/uL 0.83-4.51 [facility] Absolute neutrophil countOrd ered By: Renard Burgos on 12-31-2024 Neutrophils (Bld) [#/Vol] 5.3 10*3/uL 2.0-7.7 [facility] Automated blood erythrocyte countOrdered By: Renard Burgos on 12-31-2024 RBC (Bld) [#/Vol] 4.47 10*6/uL Low 4.6-6.2 [facility] Comment on above: Order Comment: 109.1 Performed By: #### L 100.0100 ####[facility] [address] [place], [place], [address] Automated blood hematocrit ( percentage)Ordered By: Renard Burgos on 12-31-2024 Hematocrit (Bld) [Volume fraction] 41.3 % Normal 40-54 [facility] Comment on above: Order Comment: 109.1 Performed By: #### L 100.0100 ####[facility] [address] [place], [address] Automated lymphocyte count a s percentage of total leukocytesOrdered By: Renard Burgos on 12-31-2024 Lymphocytes/100 WBC Auto (Unsp spec) 23.4 % 19-41 [facility] Basophil percentageOrdered B y: Renard Burgos on 12-31-2024 Basophils/100 WBC (Bld) 0.4 % Normal 0-1 [facility] Comment on above: Order Comment: 109.1 Performed By: #### L 100.0100 ####[facility] [address] [place], [address] CBC W/Diff, Automatedon - Absolute Lymph 1.87 X10 3/uL Normal 0.83-4.51 [facility] Comment on above: Order Comment: 109.1 Performed By: #### L 100.0100 ####[facility] [address] [place], [address] Absolute Neut 5.3 X10 3/uL Normal 2.0-7.7 [facility] Comment on above: Order Comment: 109.1 Performed By: #### L 100.0100 ####[facility] [address] [place], [address] IG% 0.400 Normal 0.0-0.9 [facility] Comment on above: Order Comment: 109.1 Result Comment: IG% - Immature Granulocytes (promyelocytes, myelocytes andmetamyelocytes) > 1% indicates that a LEFT SHIFT is Present. Performed By: #### L 100.0100 ####[facility] [address] [place], [address] Lymphocytes/100 WBC (Bld) 23.4 % Normal 19-41 [facility] Comment on above: Order Comment: 109.1 Performed By: #### L 100.0100 ####[facility] [address] [place], [address] Nucleated RBC (Bld) [#/Vol] 0 10*3/uL Normal 0-5 [facility] Comment on above: Order Comment: 109.1 Performed By: #### L 100.0100 ####[facility] [address] [place], [address] RDW SD 43.8 fl Normal 35.1-43.9 [facility] Comment on above: Order Comment: 109.1 Performed By: #### L 100.0100 ####[facility] [address] [place], [address] Eosinophil percentageOrdered By: Renard Burgos on 12-31-2024 Eosinophils/100 WBC (Bld) 0.6 % Normal 0-5 [facility] Comment on above: Order Comment: 109.1 Performed By: #### L 100.0100 ####[facility] [address] [place], [address] Erythrocyte distribution wid th ratioOrdered By: Renard Burgos on 12-31-2024 Erythrocyte distribution width (RBC) [Ratio] 13.1 % Normal 11.6-14.6 [facility] Comment on above: Order Comment: 109.1 Performed By: #### L 100.0100 ####[facility] [address] [place], [place], [address] Erythrocyte distribution wid th standard deviationOrdered By: Renard Burgos on 12-31-2024 Erythrocyte distribution width (RBC) [Ratio] 43.8 fl 35.1-43.9 [facility] Hemoglobin measurementOrdere d By: Renard Burgos on 12-31-2024 Hemoglobin (Bld) [Mass/Vol] 13.4 g/dL Normal 13.0-16.5 [facility] Comment on above: Order Comment: 109.1 Performed By: #### L 100.0100 ####[facility] [address] [place], [address] Immature granulocytes/100 WB C Auto (Bld)Ordered By: Renard Burgos on 12-31-2024 Immature granulocytes/100 WBC (Bld) 0.400 % 0.0-0.9 [facility] Comment on above: IG% - Immature Granu locytes (promyelocytes, myelocytes and metamyelocytes) > 1% indicates that a LEFT SHIFT is Present. MCV (mean corpuscular volume ) determinationOrdered By: Renard Burgos on 12-31-2024 MCV (RBC) [Entitic vol] 92.4 fL Normal 80-94 [facility] Comment on above: Order Comment: 109.1 Performed By: #### L 100.0100 ####[facility] [address] [place], [place], [address] Mean corpuscular hemoglobin (MCH) determinationOrdered By: Renard Burgos on 12-31-2024 MCH (RBC) [Entitic mass] 30.0 pg Normal 27.0-32.0 [facility] Comment on above: Order Comment: 109.1 Performed By: #### L 100.0100 ####[facility] [facility] [address] [place], [place], [id number] Mean corpuscular hemoglobin concentration (MCHC) determinationOrdered By: Renard Burgos on 12-31-2024 MCHC (RBC) [Mass/Vol] 32.4 g/dL Normal 32-36 [facility] Comment on above: Order Comment: 109.1 Performed By: #### L 100.0100 ####[facility] [address] [place], [address] Mean platelet volume determi nationOrdered By: Renard Burgos on 12-31-2024 Platelet mean volume (Bld) [Entitic vol] 10.9 fL Normal 6.2-12.0 [facility] Comment on above: Order Comment: 109.1 Performed By: #### L 100.0100 ####[facility] [address] [place], [address] Monocyte percentageOrdered B y: Renard Burgos on 12-31-2024 Monocytes/100 WBC (Bld) 9.0 % Normal 0-10 [facility] Comment on above: Order Comment: 109.1 Performed By: #### L 100.0100 ####[facility] [address], [address] Neutrophil percentageOrdered By: Renard Burgos on 12-31-2024 Neutrophils/100 WBC (Bld) 66.2 % Normal 47-70 [facility] Comment on above: Order Comment: 109.1 Performed By: #### L 100.0100 ####[facility] [address] [place], [address] Nucleated red blood cell per centageOrdered By: Renard Burgos on 12-31-2024 Nucleated RBC/100 WBC (Bld) [Ratio] 0 % 0-5 [facility] Platelet countOrdered By: Garrick Bhatt on 12-31-2024 Platelets (Bld) [#/Vol] 209 10*3/uL Normal 150-450 [facility] Comment on above: Order Comment: 109.1 Performed By: #### L 100.0100 ####[facility] [address] [place], [address] White blood cell (WBC) count Ordered By: Renard Burgos on 12-31-2024 WBC (Bld) [#/Vol] 8.0 10*3/uL Normal 4.4-11.0 [facility] Comment on above: Order Comment: 109.1 Performed By: #### L 100.0100 ####[facility] [address] [place], [address] Absolute lymphocyte countOrd ered By: Renard Burgos on 12-23-2024 Lymphocytes Auto (Unsp spec) [#/Vol] 1.98 10*3/uL 0.83-4.51 [facility] Absolute neutrophil countOrd ered By: Renard Burgos on 12-23-2024 Neutrophils (Bld) [#/Vol] 4.2 10*3/uL 2.0-7.7 [facility] Automated lymphocyte count a s percentage of total leukocytesOrdered By: Renard Burgos on 12-23-2024 Lymphocytes/100 WBC Auto (Unsp spec) 28.9 % 19-41 [facility] Basophil percentageOrdered B y: Renard Burgos on 12-23-2024 Basophils/100 WBC (Bld) 0.6 % 0-1 [facility] CBC W/Diff, Automatedon 11-30 Absolute Lymph 1.98 X10 3/uL Normal 0.83-4.51 [facility] Comment on above: Order Comment: 109-1 Performed By: #### L 100.0100 ####[facility] [address] [place], [address] Absolute Neut 4.2 X10 3/uL Normal 2.0-7.7 [facility] Comment on above: Order Comment: 109-1 Performed By: #### L 100.0100 ####[facility] [address] [place], [address] Basophils/100 WBC (Bld) 0.6 % Normal 0-1 [facility] Comment on above: Order Comment: 109-1 Performed By: #### L 100.0100 ####[facility] [address] [place], [address] Eosinophils/100 WBC (Bld) 0.9 % Normal 0-5 [facility] Comment on above: Order Comment: 109-1 Performed By: #### L 100.0100 ####[facility] [address] [place], [address] Erythrocyte distribution width (RBC) [Ratio] 13.0 % Normal 11.6-14.6 [facility] Comment on above: Order Comment: 109-1 Performed By: #### L 100.0100 ####[facility] [address] [place], [address] Hematocrit (Bld) [Volume fraction] 39.9 % Low 40-54 [facility] Comment on above: Order Comment: 109-1 Performed By: #### L 100.0100 ####[facility] [address] [place], [address] Hemoglobin (Bld) [Mass/Vol] 13.4 g/dL Normal 13.0-16.5 [facility] Comment on above: Order Comment: 109-1 Performed By: #### L 100.0100 ####[facility] [address] [place], [address] IG% 0.300 Normal 0.0-0.9 [facility] Comment on above: Order Comment: 109-1 Result Comment: IG% - Immature Granulocytes (promyelocytes, myelocytes andmetamyelocytes) > 1% indicates that a LEFT SHIFT is Present. Performed By: #### L 100.0100 ####[facility] [address] [place], [address] Lymphocytes/100 WBC (Bld) 28.9 % Normal 19-41 [facility] Comment on above: Order Comment: 109-1 Performed By: #### L 100.0100 ####[facility] [address] [place], [address] MCH (RBC) [Entitic mass] 30.9 pg Normal 27.0-32.0 [facility] Comment on above: Order Comment: 109-1 Performed By: #### L 100.0100 ####[facility] [address] [place], [address] MCHC (RBC) [Mass/Vol] 33.6 g/dL Normal 32-36 [facility] Comment on above: Order Comment: 109-1 Performed By: #### L 100.0100 ####[facility] [address] [place], [address] MCV (RBC) [Entitic vol] 91.9 fL Normal 80-94 [facility] Comment on above: Order Comment: 109-1 Performed By: #### L 100.0100 ####[facility] [address] [place], [address] Monocytes/100 WBC (Bld) 8.0 % Normal 0-10 [facility] Comment on above: Order Comment: 109-1 Performed By: #### L 100.0100 ####[facility] [address] [place], [address] Neutrophils/100 WBC (Bld) 61.3 % Normal 47-70 [facility] Comment on above: Order Comment: 109-1 Performed By: #### L 100.0100 ####[facility] [address] [place], [address] Nucleated RBC (Bld) [#/Vol] 0 10*3/uL Normal 0-5 [facility] Comment on above: Order Comment: 109-1 Performed By: #### L 100.0100 ####[facility] [address] [place], [address] Platelet mean volume (Bld) [Entitic vol] 11.7 fL Normal 6.2-12.0 [facility] Comment on above: Order Comment: 109-1 Performed By: #### L 100.0100 ####[facility] [address] [place], [address] Platelets (Bld) [#/Vol] 201 10*3/uL Normal 150-450 [facility] Comment on above: Order Comment: 109-1 Performed By: #### L 100.0100 ####[facility] [address] [place], [address] RBC (Bld) [#/Vol] 4.34 10*6/uL Low 4.6-6.2 [facility] Comment on above: Order Comment: 109-1 Performed By: #### L 100.0100 ####[facility] [address] [place], [address] RDW SD 43.4 fl Normal 35.1-43.9 [facility] Comment on above: Order Comment: 109-1 Performed By: #### L 100.0100 ####[facility] [address] [place], [address] WBC (Bld) [#/Vol] 6.8 10*3/uL Normal 4.4-11.0 [facility] Comment on above: Order Comment: 109-1 Performed By: #### L 100.0100 ####[facility] [address] [place], [address] Eosinophil percentageOrdered By: Renard Burgos on 12-23-2024 Eosinophils/100 WBC (Bld) 0.9 % 0-5 [facility] Erythrocyte distribution wid th ratioOrdered By: Renard Burgos on 12-23-2024 Erythrocyte distribution width (RBC) [Ratio] 13.0 % 11.6-14.6 [facility] Erythrocyte distribution wid th standard deviationOrdered By: Renard Burgos on 12-23-2024 Erythrocyte distribution width (RBC) [Ratio] 43.4 fl 35.1-43.9 [facility] Hematocrit Auto (Bld) [Volum e fraction]Ordered By: Renard Burgos on 12-23-2024 Hematocrit (Bld) [Volume fraction] 39.9 % Low 40-54 [facility] Hemoglobin measurementOrdere d By: Renard Burgos on 12-23-2024 Hemoglobin (Bld) [Mass/Vol] 13.4 g/dL 13.0-16.5 [facility] Immature granulocytes/100 WB C Auto (Bld)Ordered By: Renard Burgos on 12-23-2024 Immature granulocytes/100 WBC (Bld) 0.300 % 0.0-0.9 [facility] Comment on above: IG% - Immature Granu locytes (promyelocytes, myelocytes and metamyelocytes) > 1% indicates that a LEFT SHIFT is Present. MCV (mean corpuscular volume ) determinationOrdered By: Renard Burgos on 12-23-2024 MCV (RBC) [Entitic vol] 91.9 fL 80-94 [facility] Mean corpuscular hemoglobin (MCH) determinationOrdered By: Renard Burgos on 12-23-2024 MCH (RBC) [Entitic mass] 30.9 pg 27.0-32.0 [facility] Mean corpuscular hemoglobin concentration (MCHC) determinationOrdered By: Renard Burgos on 12-23-2024 MCHC (RBC) [Mass/Vol] 33.6 g/dL 32-36 [facility] Mean platelet volume determi nationOrdered By: Renard Burgos on 12-23-2024 Platelet mean volume (Bld) [Entitic vol] 11.7 fL 6.2-12.0 [facility] Monocyte percentageOrdered B y: Renard Burgos on 12-23-2024 Monocytes/100 WBC (Bld) 8.0 % 0-10 [facility] Neutrophil percentageOrdered By: Renard Burgos on 12-23-2024 Neutrophils/100 WBC (Bld) 61.3 % 47-70 [facility] Nucleated red blood cell per centageOrdered By: Renard Burgos on 12-23-2024 Nucleated RBC/100 WBC (Bld) [Ratio] 0 % 0-5 [facility] Platelet countOrdered By: Garrick Bhatt on 12-23-2024 Platelets (Bld) [#/Vol] 201 10*3/uL 150-450 [facility] RBC Auto (Bld) [#/Vol]Ordere d By: Renard Burgos on 12-23-2024 RBC (Bld) [#/Vol] 4.34 10*6/uL Low 4.6-6.2 [facility] White blood cell (WBC) count Ordered By: Renard Burgos on 12-23-2024 WBC (Bld) [#/Vol] 6.8 10*3/uL 4.4-11.0 [facility] Absolute lymphocyte countOrd ered By: Renard Burgos on 12-16-2024 Lymphocytes Auto (Unsp spec) [#/Vol] 2.15 10*3/uL 0.83-4.51 [facility] Absolute neutrophil countOrd ered By: Renard Burgos on 12-16-2024 Neutrophils (Bld) [#/Vol] 4.1 10*3/uL 2.0-7.7 [facility] Automated lymphocyte count a s percentage of total leukocytesOrdered By: Renard Burgos on 12-16-2024 Lymphocytes/100 WBC Auto (Unsp spec) 30.7 % 19-41 [facility] Basophil percentageOrdered B y: Renard Burgos on 12-16-2024 Basophils/100 WBC (Bld) 0.7 % 0-1 [facility] CBC W/Diff, Automatedon 11-29 Absolute Lymph 2.15 X10 3/uL Normal 0.83-4.51 [facility] Comment on above: Order Comment: 109.1 Performed By: #### L 100.0100 ####[facility] [address] [place], [address] Absolute Neut 4.1 X10 3/uL Normal 2.0-7.7 [facility] Comment on above: Order Comment: 109.1 Performed By: #### L 100.0100 ####[facility] [address] [place], [address] Basophils/100 WBC (Bld) 0.7 % Normal 0-1 [facility] Comment on above: Order Comment: 109.1 Performed By: #### L 100.0100 ####[facility] [address] [place], [address] Eosinophils/100 WBC (Bld) 0.9 % Normal 0-5 [facility] Comment on above: Order Comment: 109.1 Performed By: #### L 100.0100 ####[facility] [address] [place], [address] Erythrocyte distribution width (RBC) [Ratio] 13.2 % Normal 11.6-14.6 [facility] Comment on above: Order Comment: 109.1 Performed By: #### L 100.0100 ####[facility] [address] [place], [address] Hematocrit (Bld) [Volume fraction] 38.7 % Low 40-54 [facility] Comment on above: Order Comment: 109.1 Performed By: #### L 100.0100 ####[facility] [address] [place], [address] Hemoglobin (Bld) [Mass/Vol] 12.8 g/dL Low 13.0-16.5 [facility] Comment on above: Order Comment: 109.1 Performed By: #### L 100.0100 ####[facility] [address] [place], [address] IG% 0.300 Normal 0.0-0.9 [facility] Comment on above: Order Comment: 109.1 Result Comment: IG% - Immature Granulocytes (promyelocytes, myelocytes andmetamyelocytes) > 1% indicates that a LEFT SHIFT is Present. Performed By: #### L 100.0100 ####[facility] [address] [place], [address] Lymphocytes/100 WBC (Bld) 30.7 % Normal 19-41 [facility] Comment on above: Order Comment: 109.1 Performed By: #### L 100.0100 ####[facility] [address] [place], [address] MCH (RBC) [Entitic mass] 30.3 pg Normal 27.0-32.0 [facility] Comment on above: Order Comment: 109.1 Performed By: #### L 100.0100 ####[facility] [address] [place], [address] MCHC (RBC) [Mass/Vol] 33.1 g/dL Normal 32-36 [facility] Comment on above: Order Comment: 109.1 Performed By: #### L 100.0100 ####[facility] [address] [place], [address] MCV (RBC) [Entitic vol] 91.7 fL Normal 80-94 [facility] Comment on above: Order Comment: 109.1 Performed By: #### L 100.0100 ####[facility] [address] [place], [address] Monocytes/100 WBC (Bld) 8.6 % Normal 0-10 [facility] Comment on above: Order Comment: 109.1 Performed By: #### L 100.0100 ####[facility] [address] [place], [address] Neutrophils/100 WBC (Bld) 58.8 % Normal 47-70 [facility] Comment on above: Order Comment: 109.1 Performed By: #### L 100.0100 ####[facility] [address] [place], [address] Nucleated RBC (Bld) [#/Vol] 0 10*3/uL Normal 0-5 [facility] Comment on above: Order Comment: 109.1 Performed By: #### L 100.0100 ####[facility] [address] [place], [address] Platelet mean volume (Bld) [Entitic vol] 11.3 fL Normal 6.2-12.0 [facility] Comment on above: Order Comment: 109.1 Performed By: #### L 100.0100 ####[facility] [address] [place], [address] Platelets (Bld) [#/Vol] 202 10*3/uL Normal 150-450 [facility] Comment on above: Order Comment: 109.1 Performed By: #### L 100.0100 ####[facility] [address] [place], [address] RBC (Bld) [#/Vol] 4.22 10*6/uL Low 4.6-6.2 [facility] Comment on above: Order Comment: 109.1 Performed By: #### L 100.0100 ####[facility] [address] [place], [address] RDW SD 44.4 fl High 35.1-43.9 [facility] Comment on above: Order Comment: 109.1 Performed By: #### L 100.0100 ####[facility] [address] [place], [address] WBC (Bld) [#/Vol] 7.0 10*3/uL Normal 4.4-11.0 [facility] Comment on above: Order Comment: 109.1 Performed By: #### L 100.0100 ####[facility] [address] [place], [address] Eosinophil percentageOrdered By: Renard Burgos on 12-16-2024 Eosinophils/100 WBC (Bld) 0.9 % 0-5 [facility] Erythrocyte distribution wid th ratioOrdered By: Renard Burgos on 12-16-2024 Erythrocyte distribution width (RBC) [Ratio] 13.2 % 11.6-14.6 [facility] Erythrocyte distribution wid th standard deviationOrdered By: Renard Burgos on 12-16-2024 Erythrocyte distribution width (RBC) [Ratio] 44.4 fl High 35.1-43.9 [facility] Hematocrit Auto (Bld) [Volum e fraction]Ordered By: Renard Burgos on 12-16-2024 Hematocrit (Bld) [Volume fraction] 38.7 % Low 40-54 [facility] Hemoglobin measurementOrdere d By: Renard Burgos on 12-16-2024 Hemoglobin (Bld) [Mass/Vol] 12.8 g/dL Low 13.0-16.5 [facility] Immature granulocytes/100 WB C Auto (Bld)Ordered By: Renard Burgos on 12-16-2024 Immature granulocytes/100 WBC (Bld) 0.300 % 0.0-0.9 [facility] Comment on above: IG% - Immature Granu locytes (promyelocytes, myelocytes and metamyelocytes) > 1% indicates that a LEFT SHIFT is Present. MCV (mean corpuscular volume ) determinationOrdered By: Renard Burgos on 12-16-2024 MCV (RBC) [Entitic vol] 91.7 fL 80-94 [facility] Mean corpuscular hemoglobin (MCH) determinationOrdered By: Renard Burgos on 12-16-2024 MCH (RBC) [Entitic mass] 30.3 pg 27.0-32.0 [facility] Mean corpuscular hemoglobin concentration (MCHC) determinationOrdered By: Renard Burgos on 12-16-2024 MCHC (RBC) [Mass/Vol] 33.1 g/dL 32-36 [facility] Mean platelet volume determi nationOrdered By: Renard Burgos on 12-16-2024 Platelet mean volume (Bld) [Entitic vol] 11.3 fL 6.2-12.0 [facility] Monocyte percentageOrdered B y: Renard Burgos on 12-16-2024 Monocytes/100 WBC (Bld) 8.6 % 0-10 [facility] Neutrophil percentageOrdered By: Renard Burgos on 12-16-2024 Neutrophils/100 WBC (Bld) 58.8 % 47-70 [facility] Nucleated red blood cell per centageOrdered By: Renard Burgos on 12-16-2024 Nucleated RBC/100 WBC (Bld) [Ratio] 0 % 0-5 [facility] Platelet countOrdered By: Garrick Bhatt on 12-16-2024 Platelets (Bld) [#/Vol] 202 10*3/uL 150-450 [facility] RBC Auto (Bld) [#/Vol]Ordere d By: Renard Burgos on 12-16-2024 RBC (Bld) [#/Vol] 4.22 10*6/uL Low 4.6-6.2 [facility] White blood cell (WBC) count Ordered By: Renard Burgos on 12-16-2024 WBC (Bld) [#/Vol] 7.0 10*3/uL 4.4-11.0 [facility] Absolute lymphocyte countOrd ered By: Renard Burgos on 12-09-2024 Lymphocytes Auto (Unsp spec) [#/Vol] 2.30 10*3/uL 0.83-4.51 [facility] Absolute neutrophil countOrd ered By: Renard Burgos on 12-09-2024 Neutrophils (Bld) [#/Vol] 4.8 10*3/uL 2.0-7.7 [facility] Automated lymphocyte count a s percentage of total leukocytesOrdered By: Renard Burgos on 12-09-2024 Lymphocytes/100 WBC Auto (Unsp spec) 29.2 % 19-41 [facility] Basophil percentageOrdered B y: Renard Burgos on 12-09-2024 Basophils/100 WBC (Bld) 0.5 % 0-1 [facility] CBC W/Diff, Automatedon 11-29 Absolute Lymph 2.30 X10 3/uL Normal 0.83-4.51 [facility] Comment on above: Order Comment: 109.1 Performed By: #### L 100.0100 ####[facility] [address] [place], [address] Absolute Neut 4.8 X10 3/uL Normal 2.0-7.7 [facility] Comment on above: Order Comment: 109.1 Performed By: #### L 100.0100 ####[facility] [address] [place], [address] Basophils/100 WBC (Bld) 0.5 % Normal 0-1 [facility] Comment on above: Order Comment: 109.1 Performed By: #### L 100.0100 ####[facility] [address] [place], [address] Eosinophils/100 WBC (Bld) 1.0 % Normal 0-5 [facility] Comment on above: Order Comment: 109.1 Performed By: #### L 100.0100 ####[facility] [address] [place], [address] Erythrocyte distribution width (RBC) [Ratio] 13.0 % Normal 11.6-14.6 [facility] Comment on above: Order Comment: 109.1 Performed By: #### L 100.0100 ####[facility] [address] [place], [address] Hematocrit (Bld) [Volume fraction] 40.3 % Normal 40-54 [facility] Comment on above: Order Comment: 109.1 Performed By: #### L 100.0100 ####[facility] [address] [place], [address] Hemoglobin (Bld) [Mass/Vol] 12.8 g/dL Low 13.0-16.5 [facility] Comment on above: Order Comment: 109.1 Performed By: #### L 100.0100 ####[facility] [address] [place], [address] IG% 0.400 Normal 0.0-0.9 [facility] Comment on above: Order Comment: 109.1 Result Comment: IG% - Immature Granulocytes (promyelocytes, myelocytes andmetamyelocytes) > 1% indicates that a LEFT SHIFT is Present. Performed By: #### L 100.0100 ####[facility] [address] [place], [address] Lymphocytes/100 WBC (Bld) 29.2 % Normal 19-41 [facility] Comment on above: Order Comment: 109.1 Performed By: #### L 100.0100 ####[facility] [address] [place], [address] MCH (RBC) [Entitic mass] 29.6 pg Normal 27.0-32.0 [facility] Comment on above: Order Comment: 109.1 Performed By: #### L 100.0100 ####[facility] [address] [place], [address] MCHC (RBC) [Mass/Vol] 31.8 g/dL Low 32-36 [facility] Comment on above: Order Comment: 109.1 Performed By: #### L 100.0100 ####[facility] [address] [place], [address] MCV (RBC) [Entitic vol] 93.1 fL Normal 80-94 [facility] Comment on above: Order Comment: 109.1 Performed By: #### L 100.0100 ####[facility] [address] [place], [address] Monocytes/100 WBC (Bld) 7.7 % Normal 0-10 [facility] Comment on above: Order Comment: 109.1 Performed By: #### L 100.0100 ####[facility] [address] [place], [address] Neutrophils/100 WBC (Bld) 61.2 % Normal 47-70 [facility] Comment on above: Order Comment: 109.1 Performed By: #### L 100.0100 ####[facility] [address] [place], [address] Nucleated RBC (Bld) [#/Vol] 0 10*3/uL Normal 0-5 [facility] Comment on above: Order Comment: 109.1 Performed By: #### L 100.0100 ####[facility] [address] [place], [address] Platelet mean volume (Bld) [Entitic vol] 11.5 fL Normal 6.2-12.0 [facility] Comment on above: Order Comment: 109.1 Performed By: #### L 100.0100 ####[facility] [address] [place], [address] Platelets (Bld) [#/Vol] 194 10*3/uL Normal 150-450 [facility] Comment on above: Order Comment: 109.1 Performed By: #### L 100.0100 ####[facility] [address] [place], [address] RBC (Bld) [#/Vol] 4.33 10*6/uL Low 4.6-6.2 [facility] Comment on above: Order Comment: 109.1 Performed By: #### L 100.0100 ####[facility] [address] [place], [address] RDW SD 44.3 fl High 35.1-43.9 [facility] Comment on above: Order Comment: 109.1 Performed By: #### L 100.0100 ####[facility] [address] [place], [address] WBC (Bld) [#/Vol] 7.9 10*3/uL Normal 4.4-11.0 [facility] Comment on above: Order Comment: 109.1 Performed By: #### L 100.0100 ####[facility] [address] [place], [address] Eosinophil percentageOrdered By: Renard Burgos on 12-09-2024 Eosinophils/100 WBC (Bld) 1.0 % 0-5 [facility] Erythrocyte distribution wid th ratioOrdered By: Renard Burgos on 12-09-2024 Erythrocyte distribution width (RBC) [Ratio] 13.0 % 11.6-14.6 [facility] Erythrocyte distribution wid th standard deviationOrdered By: Renard Burgos on 12-09-2024 Erythrocyte distribution width (RBC) [Ratio] 44.3 fl High 35.1-43.9 [facility] [place] [facility] Hematocrit Auto (Bld) [Volum e fraction]Ordered By: Renard Burgos on 12-09-2024 Hematocrit (Bld) [Volume fraction] 40.3 % 40-54 [facility] Hemoglobin measurementOrdere d By: Renard Burgos on 12-09-2024 Hemoglobin (Bld) [Mass/Vol] 12.8 g/dL Low 13.0-16.5 [facility] Immature granulocytes/100 WB C Auto (Bld)Ordered By: Renard Burgos on 12-09-2024 Immature granulocytes/100 WBC (Bld) 0.400 % 0.0-0.9 [facility] Comment on above: IG% - Immature Granu locytes (promyelocytes, myelocytes and metamyelocytes) > 1% indicates that a LEFT SHIFT is Present. MCV (mean corpuscular volume ) determinationOrdered By: Renard Burgos on 12-09-2024 MCV (RBC) [Entitic vol] 93.1 fL 80-94 [facility] Mean corpuscular hemoglobin (MCH) determinationOrdered By: Renard Burgos on 12-09-2024 MCH (RBC) [Entitic mass] 29.6 pg 27.0-32.0 [facility] Mean corpuscular hemoglobin concentration (MCHC) determinationOrdered By: Renard Burgos on 12-09-2024 MCHC (RBC) [Mass/Vol] 31.8 g/dL Low 32-36 [facility] Mean platelet volume determi nationOrdered By: Renard Burgos on 12-09-2024 Platelet mean volume (Bld) [Entitic vol] 11.5 fL 6.2-12.0 [facility] Monocyte percentageOrdered B y: Renard Burgos on 12-09-2024 Monocytes/100 WBC (Bld) 7.7 % 0-10 [facility] Neutrophil percentageOrdered By: Renard Burgos on 12-09-2024 Neutrophils/100 WBC (Bld) 61.2 % 47-70 [facility] Nucleated red blood cell per centageOrdered By: Renard Burgos on 12-09-2024 Nucleated RBC/100 WBC (Bld) [Ratio] 0 % 0-5 [facility] Platelet countOrdered By: Garrick Bhatt on 12-09-2024 Platelets (Bld) [#/Vol] 194 10*3/uL 150-450 [facility] RBC Auto (Bld) [#/Vol]Ordere d By: Renard Burgos on 12-09-2024 RBC (Bld) [#/Vol] 4.33 10*6/uL Low 4.6-6.2 [facility] White blood cell (WBC) count Ordered By: Renard Burgos on 12-09-2024 WBC (Bld) [#/Vol] 7.9 10*3/uL 4.4-11.0 [facility] Absolute lymphocyte countOrd ered By: Renard Burgos on 12-02-2024 Lymphocytes Auto (Unsp spec) [#/Vol] 2.83 10*3/uL 0.83-4.51 [facility] Absolute neutrophil countOrd ered By: Renard Burgos on 12-02-2024 Neutrophils (Bld) [#/Vol] 4.7 10*3/uL 2.0-7.7 [facility] Automated lymphocyte count a s percentage of total leukocytesOrdered By: Renard Burgos on 12-02-2024 Lymphocytes/100 WBC Auto (Unsp spec) 31.3 % 19-41 [facility] Basophil percentageOrdered B y: Renard Burgos on 12-02-2024 Basophils/100 WBC (Bld) 0.8 % 0-1 [facility] CBC W/Diff, Automatedon 08 Absolute Lymph 2.83 X10 3/uL Normal 0.83-4.51 [facility] Comment on above: Order Comment: 109.1 Performed By: #### L 100.0100 ####[facility] [address] [place], [address] Absolute Neut 4.7 X10 3/uL Normal 2.0-7.7 [facility] Comment on above: Order Comment: 109.1 Performed By: #### L 100.0100 ####[facility] [address] [place], [address] Basophils/100 WBC (Bld) 0.8 % Normal 0-1 [facility] Comment on above: Order Comment: 109.1 Performed By: #### L 100.0100 ####[facility] [address] [place], [address] Eosinophils/100 WBC (Bld) 0.9 % Normal 0-5 [facility] Comment on above: Order Comment: 109.1 Performed By: #### L 100.0100 ####[facility] [address] [place], [address] Erythrocyte distribution width (RBC) [Ratio] 13.2 % Normal 11.6-14.6 [facility] Comment on above: Order Comment: 109.1 Performed By: #### L 100.0100 ####[facility] [address] [place], [address] Hematocrit (Bld) [Volume fraction] 41.4 % Normal 40-54 [facility] Comment on above: Order Comment: 109.1 Performed By: #### L 100.0100 ####[facility] [address] [place], [address] Hemoglobin (Bld) [Mass/Vol] 13.2 g/dL Normal 13.0-16.5 [facility] Comment on above: Order Comment: 109.1 Performed By: #### L 100.0100 ####[facility] [address] [place], [address] IG% 0.300 Normal 0.0-0.9 [facility] Comment on above: Order Comment: 109.1 Result Comment: IG% - Immature Granulocytes (promyelocytes, myelocytes andmetamyelocytes) > 1% indicates that a LEFT SHIFT is Present. Performed By: #### L 100.0100 ####[facility] [address] [place], [address] Lymphocytes/100 WBC (Bld) 31.3 % Normal 19-41 [facility] Comment on above: Order Comment: 109.1 Performed By: #### L 100.0100 ####[facility] [address] [place], [address] MCH (RBC) [Entitic mass] 30.1 pg Normal 27.0-32.0 [facility] Comment on above: Order Comment: 109.1 Performed By: #### L 100.0100 ####[facility] [address] [place], [address] MCHC (RBC) [Mass/Vol] 31.9 g/dL Low 32-36 [facility] Comment on above: Order Comment: 109.1 Performed By: #### L 100.0100 ####[facility] [address] [place], [address] MCV (RBC) [Entitic vol] 94.5 fL High 80-94 [facility] Comment on above: Order Comment: 109.1 Performed By: #### L 100.0100 ####[facility] [address] [place], [address] Monocytes/100 WBC (Bld) 14.8 % High 0-10 [facility] Comment on above: Order Comment: 109.1 Performed By: #### L 100.0100 ####[facility] [address] [place], [address] Neutrophils/100 WBC (Bld) 51.9 % Normal 47-70 [facility] Comment on above: Order Comment: 109.1 Performed By: #### L 100.0100 ####[facility] [address] [place], [address] Nucleated RBC (Bld) [#/Vol] 0 10*3/uL Normal 0-5 [facility] Comment on above: Order Comment: 109.1 Performed By: #### L 100.0100 ####[facility] [address] [place], [address] Platelet mean volume (Bld) [Entitic vol] 11.2 fL Normal 6.2-12.0 [facility] Comment on above: Order Comment: 109.1 Performed By: #### L 100.0100 ####[facility] [address] [place], [address] Platelets (Bld) [#/Vol] 182 10*3/uL Normal 150-450 [facility] Comment on above: Order Comment: 109.1 Performed By: #### L 100.0100 ####[facility] [address] [place], [address] RBC (Bld) [#/Vol] 4.38 10*6/uL Low 4.6-6.2 [facility] Comment on above: Order Comment: 109.1 Performed By: #### L 100.0100 ####[facility] [address] [place], [address] RDW SD 45.5 fl High 35.1-43.9 [facility] Comment on above: Order Comment: 109.1 Performed By: #### L 100.0100 ####[facility] [address] [place], [address] WBC (Bld) [#/Vol] 9.1 10*3/uL Normal 4.4-11.0 [facility] Comment on above: Order Comment: 109.1 Performed By: #### L 100.0100 ####[facility] [address] [place], [address] Eosinophil percentageOrdered By: Renard Burgos on 12-02-2024 Eosinophils/100 WBC (Bld) 0.9 % 0-5 [facility] Erythrocyte distribution wid th ratioOrdered By: Renard Burgos on 12-02-2024 Erythrocyte distribution width (RBC) [Ratio] 13.2 % 11.6-14.6 [facility] Erythrocyte distribution wid th standard deviationOrdered By: Renard Burgos on 12-02-2024 Erythrocyte distribution width (RBC) [Ratio] 45.5 fl High 35.1-43.9 [facility] Hematocrit Auto (Bld) [Volum e fraction]Ordered By: Renard Burgos on 12-02-2024 Hematocrit (Bld) [Volume fraction] 41.4 % 40-54 [facility] Hemoglobin measurementOrdere d By: Renard Burgos on 12-02-2024 Hemoglobin (Bld) [Mass/Vol] 13.2 g/dL 13.0-16.5 [facility] Immature granulocytes/100 WB C Auto (Bld)Ordered By: Renard Burgos on 12-02-2024 Immature granulocytes/100 WBC (Bld) 0.300 % 0.0-0.9 [facility] Comment on above: IG% - Immature Granu locytes (promyelocytes, myelocytes and metamyelocytes) > 1% indicates that a LEFT SHIFT is Present. MCV (mean corpuscular volume ) determinationOrdered By: Renard Burgos on 12-02-2024 MCV (RBC) [Entitic vol] 94.5 fL High 80-94 [facility] Mean corpuscular hemoglobin (MCH) determinationOrdered By: Renard Burgos on 12-02-2024 MCH (RBC) [Entitic mass] 30.1 pg 27.0-32.0 [facility] Mean corpuscular hemoglobin concentration (MCHC) determinationOrdered By: Renard Burgos on 12-02-2024 MCHC (RBC) [Mass/Vol] 31.9 g/dL Low 32-36 [facility] Mean platelet volume determi nationOrdered By: Renard Burgos on 12-02-2024 Platelet mean volume (Bld) [Entitic vol] 11.2 fL 6.2-12.0 [facility] Monocyte percentageOrdered B y: Renard Burgos on 12-02-2024 Monocytes/100 WBC (Bld) 14.8 % High 0-10 [facility] Neutrophil percentageOrdered By: Renard Burgos on 12-02-2024 Neutrophils/100 WBC (Bld) 51.9 % 47-70 [facility] Nucleated red blood cell per centageOrdered By: Renard Burgos on 12-02-2024 Nucleated RBC/100 WBC (Bld) [Ratio] 0 % 0-5 [facility] Platelet countOrdered By: Garrick Bhatt on 12-02-2024 Platelets (Bld) [#/Vol] 182 10*3/uL 150-450 [facility] RBC Auto (Bld) [#/Vol]Ordere d By: Renard Burgos on 12-02-2024 RBC (Bld) [#/Vol] 4.38 10*6/uL Low 4.6-6.2 [facility] White blood cell (WBC) count Ordered By: Renard Burgos on 12-02-2024 WBC (Bld) [#/Vol] 9.1 10*3/uL 4.4-11.0 [facility] Absolute lymphocyte countOrd ered By: Renard Burgos on 11-25-2024 Lymphocytes Auto (Unsp spec) [#/Vol] 1.80 10*3/uL 0.83-4.51 [facility] Absolute neutrophil countOrd ered By: Renard Burgos on 11-25-2024 Neutrophils (Bld) [#/Vol] 7.6 10*3/uL 2.0-7.7 [facility] Automated blood erythrocyte countOrdered By: Renard Burgos on 11-25-2024 RBC (Bld) [#/Vol] 4.57 10*6/uL Low 4.6-6.2 [facility] Comment on above: Order Comment: 109-1 Performed By: #### L 100.0100 ####[facility] [address] [place], [place], [id number] Automated blood hematocrit ( percentage)Ordered By: Renard Burgos on 11-25-2024 Hematocrit (Bld) [Volume fraction] 42.1 % Normal 40-54 [facility] Comment on above: Order Comment: 109-1 Performed By: #### L 100.0100 ####[facility] [address] [place], [place], [address] Automated lymphocyte count a s percentage of total leukocytesOrdered By: Renard Burgos on 11-25-2024 Lymphocytes/100 WBC Auto (Unsp spec) 17.3 % Low 19-41 [facility] Basophil percentageOrdered B y: Renard Burgos on 11-25-2024 Basophils/100 WBC (Bld) 0.4 % Normal 0-1 [facility] Comment on above: Order Comment: 109-1 Performed By: #### L 100.0100 ####[facility] [address] [place], [address] CBC W/Diff, Automatedon 10-30 Absolute Lymph 1.80 X10 3/uL Normal 0.83-4.51 [facility] Comment on above: Order Comment: 109-1 Performed By: #### L 100.0100 ####[facility] [address] [place], [address] Absolute Neut 7.6 X10 3/uL Normal 2.0-7.7 [facility] Comment on above: Order Comment: 109-1 Performed By: #### L 100.0100 ####[facility] [address] [place], [address] IG% 0.400 Normal 0.0-0.9 [facility] Comment on above: Order Comment: 109-1 Result Comment: IG% - Immature Granulocytes (promyelocytes, myelocytes andmetamyelocytes) > 1% indicates that a LEFT SHIFT is Present. Performed By: #### L 100.0100 ####[facility] [address] [place], [address] Lymphocytes/100 WBC (Bld) 17.3 % Low 19-41 [facility] Comment on above: Order Comment: 109-1 Performed By: #### L 100.0100 ####[facility] [address] [place], [address] Nucleated RBC (Bld) [#/Vol] 0 10*3/uL Normal 0-5 [facility] Comment on above: Order Comment: 109-1 Performed By: #### L 100.0100 ####[facility] [address] [place], [address] RDW SD 43.7 fl Normal 35.1-43.9 [facility] Comment on above: Order Comment: 109-1 Performed By: #### L 100.0100 ####[facility] [address] [place], [address] Eosinophil percentageOrdered By: Renard Burgos on 11-25-2024 Eosinophils/100 WBC (Bld) 0.6 % Normal 0-5 [facility] Comment on above: Order Comment: 109-1 Performed By: #### L 100.0100 ####[facility] [address] [place], [address] Erythrocyte distribution wid th ratioOrdered By: Renard Burgos on 11-25-2024 Erythrocyte distribution width (RBC) [Ratio] 12.9 % Normal 11.6-14.6 [facility] Comment on above: Order Comment: 109-1 Performed By: #### L 100.0100 ####[facility] [address] [place], [address] Erythrocyte distribution wid th standard deviationOrdered By: Renard Burgos on 11-25-2024 Erythrocyte distribution width (RBC) [Ratio] 43.7 fl 35.1-43.9 [facility] Hemoglobin measurementOrdere d By: Renard Burgos on 11-25-2024 Hemoglobin (Bld) [Mass/Vol] 13.8 g/dL Normal 13.0-16.5 [facility] Comment on above: Order Comment: 109-1 Performed By: #### L 100.0100 ####[facility] [address] [place], [address] Immature granulocytes/100 WB C Auto (Bld)Ordered By: Renard Burgos on 11-25-2024 Immature granulocytes/100 WBC (Bld) 0.400 % 0.0-0.9 [facility] Comment on above: IG% - Immature Granu locytes (promyelocytes, myelocytes and metamyelocytes) > 1% indicates that a LEFT SHIFT is Present. MCV (mean corpuscular volume ) determinationOrdered By: Renard Burgos on 11-25-2024 MCV (RBC) [Entitic vol] 92.1 fL Normal 80-94 [facility] Comment on above: Order Comment: 109-1 Performed By: #### L 100.0100 ####[facility] [address] [place], [place], [id number] Mean corpuscular hemoglobin (MCH) determinationOrdered By: Renard Burgos on 11-25-2024 MCH (RBC) [Entitic mass] 30.2 pg Normal 27.0-32.0 [facility] Comment on above: Order Comment: 109-1 Performed By: #### L 100.0100 ####[facility] [address] [place], [address] Mean corpuscular hemoglobin concentration (MCHC) determinationOrdered By: Renard Burgos on 11-25-2024 MCHC (RBC) [Mass/Vol] 32.8 g/dL Normal 32-36 [facility] Comment on above: Order Comment: 109-1 Performed By: #### L 100.0100 ####[facility] [address] [place], [phone] Mean platelet volume determi nationOrdered By: Renard Burgos on 11-25-2024 Platelet mean volume (Bld) [Entitic vol] 11.7 fL Normal 6.2-12.0 [facility] Comment on above: Order Comment: 109-1 Performed By: #### L 100.0100 ####[facility] [address] [place], [place], [phone] Monocyte percentageOrdered B y: Renard Burgos on 11-25-2024 Monocytes/100 WBC (Bld) 8.6 % Normal 0-10 [facility] Comment on above: Order Comment: 109-1 Performed By: #### L 100.0100 ####[facility] [address] [place], [address] Neutrophil percentageOrdered By: Renard Burgos on 11-25-2024 Neutrophils/100 WBC (Bld) 72.7 % High 47-70 [facility] Comment on above: Order Comment: 109-1 Performed By: #### L 100.0100 ####[facility] [address] [place], [address] Nucleated red blood cell per centageOrdered By: Renard Burgos on 11-25-2024 Nucleated RBC/100 WBC (Bld) [Ratio] 0 % 0-5 [facility] Platelet countOrdered By: Garrick Bhatt on 11-25-2024 Platelets (Bld) [#/Vol] 201 10*3/uL Normal 150-450 [facility] Comment on above: Order Comment: 109-1 Performed By: #### L 100.0100 ####[facility] [address] [facility] [place], [address] White blood cell (WBC) count Ordered By: Renard Burgos on 11-25-2024 WBC (Bld) [#/Vol] 10.4 10*3/uL Normal 4.4-11.0 [facility] Comment on above: Order Comment: 109-1 Performed By: #### L 100.0100 ####[facility] [address] [place], [place], [phone] Absolute lymphocyte countOrd ered By: Renard Burgos on 11-18-2024 Lymphocytes Auto (Unsp spec) [#/Vol] 2.56 10*3/uL 0.83-4.51 [facility] Absolute neutrophil countOrd ered By: Renard Burgos on 11-18-2024 Neutrophils (Bld) [#/Vol] 6.7 10*3/uL 2.0-7.7 [facility] Automated lymphocyte count a s percentage of total leukocytesOrdered By: Renard Burgos on 11-18-2024 Lymphocytes/100 WBC Auto (Unsp spec) 24.9 % 19-41 [facility] Basophil percentageOrdered B y: Renard Burgos on 11-18-2024 Basophils/100 WBC (Bld) 0.5 % 0-1 [facility] CBC W/Diff, Automatedon 07-2 -2024 Absolute Lymph 2.56 X10 3/uL Normal 0.83-4.51 [facility] Comment on above: Order Comment: 109.1 Performed By: #### L 100.0100 ####[facility] [address] [place], [address] Absolute Neut 6.7 X10 3/uL Normal 2.0-7.7 [facility] Comment on above: Order Comment: 109.1 Performed By: #### L 100.0100 ####[facility] [address] [place], [address] Basophils/100 WBC (Bld) 0.5 % Normal 0-1 [facility] Comment on above: Order Comment: 109.1 Performed By: #### L 100.0100 ####[facility] [address] [place], [address] Eosinophils/100 WBC (Bld) 0.8 % Normal 0-5 [facility] Comment on above: Order Comment: 109.1 Performed By: #### L 100.0100 ####[facility] [address] [place], [address] Erythrocyte distribution width (RBC) [Ratio] 13.2 % Normal 11.6-14.6 [facility] Comment on above: Order Comment: 109.1 Performed By: #### L 100.0100 ####[facility] [address] [place], [address] Hematocrit (Bld) [Volume fraction] 41.6 % Normal 40-54 [facility] Comment on above: Order Comment: 109.1 Performed By: #### L 100.0100 ####[facility] [address] [place], [address] Hemoglobin (Bld) [Mass/Vol] 13.6 g/dL Normal 13.0-16.5 [facility] Comment on above: Order Comment: 109.1 Performed By: #### L 100.0100 ####[facility] [address] [place], [address] IG% 0.400 Normal 0.0-0.9 [facility] Comment on above: Order Comment: 109.1 Result Comment: IG% - Immature Granulocytes (promyelocytes, myelocytes andmetamyelocytes) > 1% indicates that a LEFT SHIFT is Present. Performed By: #### L 100.0100 ####[facility] [address] [place], [address] Lymphocytes/100 WBC (Bld) 24.9 % Normal 19-41 [facility] Comment on above: Order Comment: 109.1 Performed By: #### L 100.0100 ####[facility] [address] [place], [address] MCH (RBC) [Entitic mass] 30.3 pg Normal 27.0-32.0 [facility] Comment on above: Order Comment: 109.1 Performed By: #### L 100.0100 ####[facility] [address] [place], [address] MCHC (RBC) [Mass/Vol] 32.7 g/dL Normal 32-36 [facility] Comment on above: Order Comment: 109.1 Performed By: #### L 100.0100 ####[facility] [address] [place], [address] MCV (RBC) [Entitic vol] 92.7 fL Normal 80-94 [facility] Comment on above: Order Comment: 109.1 Performed By: #### L 100.0100 ####[facility] [address] [place], [address] Monocytes/100 WBC (Bld) 8.9 % Normal 0-10 [facility] Comment on above: Order Comment: 109.1 Performed By: #### L 100.0100 ####[facility] [address] [place], [address] Neutrophils/100 WBC (Bld) 64.5 % Normal 47-70 [facility] Comment on above: Order Comment: 109.1 Performed By: #### L 100.0100 ####[facility] [address] [place], [address] Nucleated RBC (Bld) [#/Vol] 0 10*3/uL Normal 0-5 [facility] Comment on above: Order Comment: 109.1 Performed By: #### L 100.0100 ####[facility] [address] [place], [address] Platelet mean volume (Bld) [Entitic vol] 11.0 fL Normal 6.2-12.0 [facility] Comment on above: Order Comment: 109.1 Performed By: #### L 100.0100 ####[facility] [address] [place], [address] Platelets (Bld) [#/Vol] 177 10*3/uL Normal 150-450 [facility] Comment on above: Order Comment: 109.1 Performed By: #### L 100.0100 ####[facility] [address] [place], [address] RBC (Bld) [#/Vol] 4.49 10*6/uL Low 4.6-6.2 [facility] Comment on above: Order Comment: 109.1 Performed By: #### L 100.0100 ####[facility] [address] [place], [address] RDW SD 44.9 fl High 35.1-43.9 [facility] Comment on above: Order Comment: 109.1 Performed By: #### L 100.0100 ####[facility] [address] [place], [address] WBC (Bld) [#/Vol] 10.3 10*3/uL Normal 4.4-11.0 [facility] Comment on above: Order Comment: 109.1 Performed By: #### L 100.0100 ####[facility] [address] [place], [address] Eosinophil percentageOrdered By: Renard Burgos on 11-18-2024 Eosinophils/100 WBC (Bld) 0.8 % 0-5 [facility] Erythrocyte distribution wid th ratioOrdered By: Renard Burgos on 11-18-2024 Erythrocyte distribution width (RBC) [Ratio] 13.2 % 11.6-14.6 [facility] Erythrocyte distribution wid th standard deviationOrdered By: Renard Burgos on 11-18-2024 Erythrocyte distribution width (RBC) [Ratio] 44.9 fl High 35.1-43.9 [facility] Hematocrit Auto (Bld) [Volum e fraction]Ordered By: Renard Burgos on 11-18-2024 Hematocrit (Bld) [Volume fraction] 41.6 % 40-54 [facility] Hemoglobin measurementOrdere d By: Renard Burgos on 11-18-2024 Hemoglobin (Bld) [Mass/Vol] 13.6 g/dL 13.0-16.5 [facility] Immature granulocytes/100 WB C Auto (Bld)Ordered By: Renard Bugros on 11-18-2024 Immature granulocytes/100 WBC (Bld) 0.400 % 0.0-0.9 [facility] Comment on above: IG% - Immature Granu locytes (promyelocytes, myelocytes and metamyelocytes) > 1% indicates that a LEFT SHIFT is Present. MCV (mean corpuscular volume ) determinationOrdered By: Renard Burgos on 11-18-2024 MCV (RBC) [Entitic vol] 92.7 fL 80-94 [facility] Mean corpuscular hemoglobin (MCH) determinationOrdered By: Renard Burgos on 11-18-2024 MCH (RBC) [Entitic mass] 30.3 pg 27.0-32.0 [facility] Mean corpuscular hemoglobin concentration (MCHC) determinationOrdered By: Renard Burgos on 11-18-2024 MCHC (RBC) [Mass/Vol] 32.7 g/dL 32-36 [facility] Mean platelet volume determi nationOrdered By: Renard Burgos on 11-18-2024 Platelet mean volume (Bld) [Entitic vol] 11.0 fL 6.2-12.0 [facility] Monocyte percentageOrdered B y: Renard Burgos on 11-18-2024 Monocytes/100 WBC (Bld) 8.9 % 0-10 [facility] Neutrophil percentageOrdered By: Renard Burgos on 11-18-2024 Neutrophils/100 WBC (Bld) 64.5 % 47-70 [facility] Nucleated red blood cell per centageOrdered By: Renard Burgos on 11-18-2024 Nucleated RBC/100 WBC (Bld) [Ratio] 0 % 0-5 [facility] Platelet countOrdered By: Garrick Bhatt on 11-18-2024 Platelets (Bld) [#/Vol] 177 10*3/uL 150-450 [facility] RBC Auto (Bld) [#/Vol]Ordere d By: Renard Burgos on 11-18-2024 RBC (Bld) [#/Vol] 4.49 10*6/uL Low 4.6-6.2 [facility] White blood cell (WBC) count Ordered By: Renard Burgos on 11-18-2024 WBC (Bld) [#/Vol] 10.3 10*3/uL 4.4-11.0 [facility] Basic Metabolic Profile (BMP )on 11-12-2024 BUN/CRE 18.8 RATIO Normal 10-20 [facility] Comment on above: Order Comment: ADDED BMP TO 11/11/24 LABS Performed By: #### L 100.0100, L500.2500 ####[facility] [address] [place], [place], [id number] Calcium [Mass/Vol] 8.2 mg/dL Normal 7.6-11.0 [facility] Comment on above: Order Comment: ADDED BMP TO 11/11/24 LABS Performed By: #### L 100.0100, L500.2500 ####[facility] [address] [place], [address] Chloride [Moles/Vol] 104 mmol/L Normal 98-108 [facility] Comment on above: Order Comment: ADDED BMP TO 11/11/24 LABS Performed By: #### L 100.0100, L500.2500 ####[facility] [address] [place], [address] CO2 [Moles/Vol] 24.9 mmol/L Normal 21.0-32.0 [facility] Comment on above: Order Comment: ADDED BMP TO 11/11/24 LABS Performed By: #### L 100.0100, L500.2500 ####[facility] [address] [place], [address] Creatinine [Mass/Vol] 0.58 mg/dL Low 0.70-1.20 [facility] Comment on above: Order Comment: ADDED BMP TO 11/11/24 LABS Performed By: #### L 100.0100, L500.2500 ####[facility] [address] [place], [address] GAP 11 Normal 5-15 [facility] Comment on above: Order Comment: ADDED BMP TO 11/11/24 LABS Performed By: #### L 100.0100, L500.2500 ####[facility] [address] [place], [address] GFR/1.73 sq M.predicted among non-blacks MDRD (S/P/Bld) [Vol rate/Area] 107 mL/min/{1.73_m2} Normal >60 [facility] Comment on above: Order Comment: ADDED BMP TO 11/11/24 LABS Result Comment: mL/m in/1.73m2 CKD-EPI Creatinine Equation (2020) Performed By: #### L 100.0100, L500.2500 ####[facility] [address] [place], [address] Glucose [Mass/Vol] 101 mg/dL High 70-99 [facility] Comment on above: Order Comment: ADDED BMP TO 11/11/24 LABS Performed By: #### L 100.0100, L500.2500 ####[facility] [address] [place], [address] Potassium [Moles/Vol] 3.9 mmol/L Normal 3.3-5.1 [facility] Comment on above: Order Comment: ADDED BMP TO 11/11/24 LABS Performed By: #### L 100.0100, L500.2500 ####[facility] [address] [place], [address] Sodium [Moles/Vol] 140 mmol/L Normal 133-145 [facility] Comment on above: Order Comment: ADDED BMP TO 11/11/24 LABS Performed By: #### L 100.0100, L500.2500 ####[facility] [address] [place], [address] Urea nitrogen [Mass/Vol] 11 mg/dL Normal 4-19 [facility] Comment on above: Order Comment: ADDED BMP TO 11/11/24 LABS Performed By: #### L 100.0100, L500.2500 ####[facility] [address] [place], [address] Absolute lymphocyte countOrd ered By: Renard Burgos on 11-11-2024 Lymphocytes Auto (Unsp spec) [#/Vol] 2.08 10*3/uL 0.83-4.51 [facility] Absolute neutrophil countOrd ered By: Renard Burgos on 11-11-2024 Neutrophils (Bld) [#/Vol] 5.2 10*3/uL 2.0-7.7 [facility] Anion gap in Serum or Plasma Ordered By: Renard Burgos on 11-11-2024 Anion gap [Moles/Vol] 11 mmol/L 5-15 [facility] Automated lymphocyte count a s percentage of total leukocytesOrdered By: Renard Burgos on 11-11-2024 Lymphocytes/100 WBC Auto (Unsp spec) 25.7 % 19- [facility] BUN/creatinine ratioOrdered By: Renard Burgos on 11-11-2024 Urea nitrogen/Creatinine [Mass ratio] 18.8 mg/mg 10- [facility] Basophil percentageOrdered B y: Renard Burgos on 11-11-2024 Basophils/100 WBC (Bld) 0.6 % 0-1 [facility] CBC W/Diff, Automatedon 10-29 Absolute Lymph 2.08 X10 3/uL Normal 0.83-4.51 [facility] Comment on above: Order Comment: 109.1 Performed By: #### L 100.0100, L500.2500 ####[facility] [address] [place], [address] Absolute Neut 5.2 X10 3/uL Normal 2.0-7.7 [facility] Comment on above: Order Comment: 109.1 Performed By: #### L 100.0100, L500.2500 ####[facility] [address] [place], [address] Basophils/100 WBC (Bld) 0.6 % Normal 0-1 [facility] Comment on above: Order Comment: 109.1 Performed By: #### L 100.0100, L500.2500 ####[facility] [address] [place], [address] Eosinophils/100 WBC (Bld) 1.0 % Normal 0-5 [facility] Comment on above: Order Comment: 109.1 Performed By: #### L 100.0100, L500.2500 ####[facility] [address] [place], [address] Erythrocyte distribution width (RBC) [Ratio] 13.2 % Normal 11.6-14.6 [facility] Comment on above: Order Comment: 109.1 Performed By: #### L 100.0100, L500.2500 ####[facility] [address] [place], [address] Hematocrit (Bld) [Volume fraction] 38.6 % Low 40-54 [facility] Comment on above: Order Comment: 109.1 Performed By: #### L 100.0100, L500.2500 ####[facility] [address] [place], [address] Hemoglobin (Bld) [Mass/Vol] 12.6 g/dL Low 13.0-16.5 [facility] Comment on above: Order Comment: 109.1 Performed By: #### L 100.0100, L500.2500 ####[facility] [address] [place], [address] IG% 0.400 Normal 0.0-0.9 [facility] Comment on above: Order Comment: 109.1 Result Comment: IG% - Immature Granulocytes (promyelocytes, myelocytes andmetamyelocytes) > 1% indicates that a LEFT SHIFT is Present. Performed By: #### L 100.0100, L500.2500 ####[facility] [address] [place], [address] Lymphocytes/100 WBC (Bld) 25.7 % Normal 19-41 [facility] Comment on above: Order Comment: 109.1 Performed By: #### L 100.0100, L500.2500 ####[facility] [address] [place], [address] MCH (RBC) [Entitic mass] 29.9 pg Normal 27.0-32.0 [facility] Comment on above: Order Comment: 109.1 Performed By: #### L 100.0100, L500.2500 ####[facility] [address] [place], [address] MCHC (RBC) [Mass/Vol] 32.6 g/dL Normal 32-36 [facility] Comment on above: Order Comment: 109.1 Performed By: #### L 100.0100, L500.2500 ####[facility] [address] [place], [address] MCV (RBC) [Entitic vol] 91.7 fL Normal 80-94 [facility] Comment on above: Order Comment: 109.1 Performed By: #### L 100.0100, L500.2500 ####[facility] [address] [place], [address] Monocytes/100 WBC (Bld) 8.3 % Normal 0-10 [facility] Comment on above: Order Comment: 109.1 Performed By: #### L 100.0100, L500.2500 ####[facility] [address] [place], [address] Neutrophils/100 WBC (Bld) 64.0 % Normal 47-70 [facility] Comment on above: Order Comment: 109.1 Performed By: #### L 100.0100, L500.2500 ####[facility] [address] [place], [address] Nucleated RBC (Bld) [#/Vol] 0 10*3/uL Normal 0-5 [facility] Comment on above: Order Comment: 109.1 Performed By: #### L 100.0100, L500.2500 ####[facility] [address] [place], [address] Platelet mean volume (Bld) [Entitic vol] 11.4 fL Normal 6.2-12.0 [facility] Comment on above: Order Comment: 109.1 Performed By: #### L 100.0100, L500.2500 ####[facility] [address] [place], [address] Platelets (Bld) [#/Vol] 220 10*3/uL Normal 150-450 [facility] Comment on above: Order Comment: 109.1 Performed By: #### L 100.0100, L500.2500 ####[facility] [address] [place], [address] RBC (Bld) [#/Vol] 4.21 10*6/uL Low 4.6-6.2 [facility] Comment on above: Order Comment: 109.1 Performed By: #### L 100.0100, L500.2500 ####[facility] [address] [place], [address] RDW SD 44.4 fl High 35.1-43.9 [facility] Comment on above: Order Comment: 109.1 Performed By: #### L 100.0100, L500.2500 ####[facility] [address] [place], [address] WBC (Bld) [#/Vol] 8.1 10*3/uL Normal 4.4-11.0 [facility] Comment on above: Order Comment: 109.1 Performed By: #### L 100.0100, L500.2500 ####[facility] [address] [place], [address] Carbon dioxide, total [Moles /volume] in Central venous bloodOrdered By: Renard Burgos on 11-11-2024 CO2 [Moles/Vol] 24.9 mmol/L 21.0-32.0 [facility] Chloride assayOrdered By: Garrick Bhatt on 11-11-2024 Chloride [Moles/Vol] 104 mmol/L 98-108 [facility] Eosinophil percentageOrdered By: Renard Burgos on 11-11-2024 Eosinophils/100 WBC (Bld) 1.0 % 0-5 [facility] Erythrocyte distribution wid th ratioOrdered By: Renard Burgos on 11-11-2024 Erythrocyte distribution width (RBC) [Ratio] 13.2 % 11.6-14.6 [facility] Erythrocyte distribution wid th standard deviationOrdered By: Renard Burgos on 11-11-2024 Erythrocyte distribution width (RBC) [Ratio] 44.4 fl High 35.1-43.9 [facility] Glomerular filtration rate ( GFR) estimation/1.73 sq m using serum, plasma, or whole bOrdered By: Renard Burgos on 11-11-2024 GFR/1.73 sq M.predicted among non-blacks MDRD (S/P/Bld) [Vol rate/Area] 107 mL/min/{1.73_m2} >60 [facility] Comment on above: mL/min/1.73m2 CKD-EP I Creatinine Equation (2020) Hematocrit Auto (Bld) [Volum e fraction]Ordered By: Renard Burgos on 11-11-2024 Hematocrit (Bld) [Volume fraction] 38.6 % Low 40-54 [facility] Hemoglobin measurementOrdere d By: Renard Burgos on 11-11-2024 Hemoglobin (Bld) [Mass/Vol] 12.6 g/dL Low 13.0-16.5 [facility] Immature granulocytes/100 WB C Auto (Bld)Ordered By: Renard Burgos on 11-11-2024 Immature granulocytes/100 WBC (Bld) 0.400 % 0.0-0.9 [facility] Comment on above: IG% - Immature Granu locytes (promyelocytes, myelocytes and metamyelocytes) > 1% indicates that a LEFT SHIFT is Present. MCV (mean corpuscular volume ) determinationOrdered By: Renard Burgos on 11-11-2024 MCV (RBC) [Entitic vol] 91.7 fL 80-94 [facility] Mean corpuscular hemoglobin (MCH) determinationOrdered By: Renard Burgos on 11-11-2024 MCH (RBC) [Entitic mass] 29.9 pg 27.0-32.0 [facility] Mean corpuscular hemoglobin concentration (MCHC) determinationOrdered By: Renard Burgos on 11-11-2024 MCHC (RBC) [Mass/Vol] 32.6 g/dL 32-36 [facility] Mean platelet volume determi nationOrdered By: Renard Burgos on 11-11-2024 Platelet mean volume (Bld) [Entitic vol] 11.4 fL 6.2-12.0 [facility] Monocyte percentageOrdered B y: Renard Burgos on 11-11-2024 Monocytes/100 WBC (Bld) 8.3 % 0-10 [facility] Neutrophil percentageOrdered By: Renard Burgos on 11-11-2024 Neutrophils/100 WBC (Bld) 64.0 % 47-70 [facility] Nucleated red blood cell per centageOrdered By: Renard Burgos on 11-11-2024 Nucleated RBC/100 WBC (Bld) [Ratio] 0 % 0-5 [facility] Platelet countOrdered By: Garrick Bhatt on 11-11-2024 Platelets (Bld) [#/Vol] 220 10*3/uL 150-450 [facility] Potassium measurement (mass/ volume)Ordered By: Renard Burgos on 11-11-2024 Potassium (Unsp spec) [Mass/Vol] 3.9 mmol/L 3.3-5.1 [facility] RBC Auto (Bld) [#/Vol]Ordere d By: Renard Burgos on 11-11-2024 RBC (Bld) [#/Vol] 4.21 10*6/uL Low 4.6-6.2 [facility] Serum creatinine measurement (mass/volume)Ordered By: Renard Burgos on 11-11-2024 Creatinine [Mass/Vol] 0.58 mg/dL Low 0.70-1.20 [facility] Serum glucose measurement (m ass/volume)Ordered By: Renard Burgos on 11-11-2024 Glucose [Mass/Vol] 101 mg/dL High 70-99 [facility] Serum or plasma calcium gordy urement (mass/volume)Ordered By: Renard Burgos on 11-11-2024 Calcium [Mass/Vol] 8.2 mg/dL 7.6-11.0 [facility] Serum or plasma urea nitroge n measurement (mass/volume)Ordered By: Renadr Burgos on 11-11-2024 Urea nitrogen [Mass/Vol] 11 mg/dL 4-19 [facility] Sodium levelOrdered By: Lamine Burgos on 11-11-2024 Sodium [Moles/Vol] 140 mmol/L 133-145 [facility] White blood cell (WBC) count Ordered By: Renard Burgos on 11-11-2024 WBC (Bld) [#/Vol] 8.1 10*3/uL 4.4-11.0 [facility] Absolute lymphocyte countOrd ered By: Renard Burgos on 11-04-2024 Lymphocytes Auto (Unsp spec) [#/Vol] 2.18 10*3/uL 0.83-4.51 [facility] Absolute neutrophil countOrd ered By: Renard Burgos on 11-04-2024 Neutrophils (Bld) [#/Vol] 4.8 10*3/uL 2.0-7.7 [facility] Automated lymphocyte count a s percentage of total leukocytesOrdered By: Renard Burgos on 11-04-2024 Lymphocytes/100 WBC Auto (Unsp spec) 28.1 % 19-41 [facility] Basophil percentageOrdered B y: Renard Burgos on 11-04-2024 Basophils/100 WBC (Bld) 0.6 % 0-1 [facility] CBC W/Diff, Automatedon PLT EST A Normal ADEQ [facility] Comment on above: Order Comment: 109 Performed By: #### L 100.0100 ####[facility] [address] [place], [place], [id number] PLT MORPH CLUMPED Normal [facility] Comment on above: Order Comment: 109 Performed By: #### L 100.0100 ####[facility] [address] [place], [place], [id number] Eosinophil percentageOrdered By: Renard Burgos on 11-04-2024 Eosinophils/100 WBC (Bld) 0.8 % 0-5 [facility] Erythrocyte distribution wid th ratioOrdered By: Renard Burgos on 11-04-2024 Erythrocyte distribution width (RBC) [Ratio] 13.3 % 11.6-14.6 [facility] Erythrocyte distribution wid th standard deviationOrdered By: Renard Burgos on 11-04-2024 Erythrocyte distribution width (RBC) [Ratio] 45.0 fl High 35.1-43.9 [facility] Hematocrit Auto (Bld) [Volum e fraction]Ordered By: Renard Burgos on 11-04-2024 Hematocrit (Bld) [Volume fraction] 42.8 % 40-54 [facility] Hemoglobin measurementOrdere d By: Renrad Burgos on 11-04-2024 Hemoglobin (Bld) [Mass/Vol] 14.0 g/dL 13.0-16.5 [facility] Immature granulocytes/100 WB C Auto (Bld)Ordered By: Renard Burgos on 11-04-2024 Immature granulocytes/100 WBC (Bld) 0.400 % 0.0-0.9 [facility] Comment on above: IG% - Immature Granu locytes (promyelocytes, myelocytes and metamyelocytes) > 1% indicates that a LEFT SHIFT is Present. MCV (mean corpuscular volume ) determinationOrdered By: Renard Burgos on 11-04-2024 MCV (RBC) [Entitic vol] 92.4 fL 80-94 [facility] Mean corpuscular hemoglobin (MCH) determinationOrdered By: Renard Burgos on 11-04-2024 MCH (RBC) [Entitic mass] 30.2 pg 27.0-32.0 [facility] Mean corpuscular hemoglobin concentration (MCHC) determinationOrdered By: Renard Burgos on 11-04-2024 MCHC (RBC) [Mass/Vol] 32.7 g/dL 32-36 [facility] Mean platelet volume determi nationOrdered By: Renard Burgos on 11-04-2024 Platelet mean volume (Bld) [Entitic vol] 11.6 fL 6.2-12.0 [facility] Monocyte percentageOrdered B y: Renard Burgos on 11-04-2024 Monocytes/100 WBC (Bld) 8.4 % 0-10 [facility] Neutrophil percentageOrdered By: Renard Burgos on 11-04-2024 Neutrophils/100 WBC (Bld) 61.7 % 47-70 [facility] Nucleated red blood cell per centageOrdered By: Renard Burgos on 11-04-2024 Nucleated RBC/100 WBC (Bld) [Ratio] 0 % 0-5 [facility] Platelet countOrdered By: Garrick Bhatt on 11-04-2024 Platelet count TNP [facility] Comment on above: Test not performed Platelet estimateOrdered By: Renard Burgos on 11-04-2024 Platelets LM Ql (Bld) A ADEQ [facility] Platelet morphologyOrdered B y: Renard Burgos on 11-04-2024 Platelet morphology finding Nom (Bld) CLUMPED [facility] RBC Auto (Bld) [#/Vol]Ordere d By: Renard Burgos on 11-04-2024 RBC (Bld) [#/Vol] 4.63 10*6/uL 4.6-6.2 [facility] White blood cell (WBC) count Ordered By: Renard Burgos on 11-04-2024 WBC (Bld) [#/Vol] 7.8 10*3/uL 4.4-11.0 [facility] Absolute lymphocyte countOrd ered By: Renard uBrgos on 10-28-2024 Lymphocytes Auto (Unsp spec) [#/Vol] 1.72 10*3/uL 0.83-4.51 [facility] Absolute neutrophil countOrd ered By: Renard Burgos on 10-28-2024 Neutrophils (Bld) [#/Vol] 5.0 10*3/uL 2.0-7.7 [facility] Automated lymphocyte count a s percentage of total leukocytesOrdered By: Renard Burgos on 10-28-2024 Lymphocytes/100 WBC Auto (Unsp spec) 22.9 % 19-41 [facility] Basophil percentageOrdered B y: Renard Burgos on 10-28-2024 Basophils/100 WBC (Bld) 0.7 % 0-1 [facility] CBC W/Diff, Automatedon 10-01 Absolute Lymph 1.72 X10 3/uL Normal 0.83-4.51 [facility] Comment on above: Order Comment: 109-1 Performed By: #### L 100.0100 ####[facility] [address] [place], [place], [id number] Absolute Neut 5.0 X10 3/uL Normal 2.0-7.7 [facility] Comment on above: Order Comment: 109-1 Performed By: #### L 100.0100 ####[facility] [address] [place], [address] Basophils/100 WBC (Bld) 0.7 % Normal 0-1 [facility] Comment on above: Order Comment: 109-1 Performed By: #### L 100.0100 ####[facility] [address] [place], [address] Eosinophils/100 WBC (Bld) 1.2 % Normal 0-5 [facility] Comment on above: Order Comment: 109-1 Performed By: #### L 100.0100 ####[facility] [address] [place], [address] Erythrocyte distribution width (RBC) [Ratio] 13.2 % Normal 11.6-14.6 [facility] Comment on above: Order Comment: 109-1 Performed By: #### L 100.0100 ####[facility] [address] [place], [address] Hematocrit (Bld) [Volume fraction] 37.3 % Low 40-54 [facility] Comment on above: Order Comment: 109-1 Performed By: #### L 100.0100 ####[facility] [address] [place], [address] Hemoglobin (Bld) [Mass/Vol] 12.3 g/dL Low 13.0-16.5 [facility] Comment on above: Order Comment: 109-1 Performed By: #### L 100.0100 ####[facility] [address] [place], [address] IG% 0.100 Normal 0.0-0.9 [facility] Comment on above: Order Comment: 109-1 Result Comment: IG% - Immature Granulocytes (promyelocytes, myelocytes andmetamyelocytes) > 1% indicates that a LEFT SHIFT is Present. Performed By: #### L 100.0100 ####[facility] [address] [place], [address] Lymphocytes/100 WBC (Bld) 22.9 % Normal 19-41 [facility] Comment on above: Order Comment: 109-1 Performed By: #### L 100.0100 ####[facility] [address] [place], [address] MCH (RBC) [Entitic mass] 30.1 pg Normal 27.0-32.0 [facility] Comment on above: Order Comment: 109-1 Performed By: #### L 100.0100 ####[facility] [address] [place], [address] MCHC (RBC) [Mass/Vol] 33.0 g/dL Normal 32-36 [facility] Comment on above: Order Comment: 109-1 Performed By: #### L 100.0100 ####[facility] [address] [place], [address] MCV (RBC) [Entitic vol] 91.4 fL Normal 80-94 [facility] Comment on above: Order Comment: 109-1 Performed By: #### L 100.0100 ####[facility] [address] [place], [address] Monocytes/100 WBC (Bld) 8.1 % Normal 0-10 [facility] Comment on above: Order Comment: 109-1 Performed By: #### L 100.0100 ####[facility] [address] [place], [address] Neutrophils/100 WBC (Bld) 67.0 % Normal 47-70 [facility] Comment on above: Order Comment: 109-1 Performed By: #### L 100.0100 ####[facility] [address] [place], [address] Nucleated RBC (Bld) [#/Vol] 0 10*3/uL Normal 0-5 [facility] Comment on above: Order Comment: 109-1 Performed By: #### L 100.0100 ####[facility] [address] [place], [address] Platelet mean volume (Bld) [Entitic vol] 11.3 fL Normal 6.2-12.0 [facility] Comment on above: Order Comment: 109-1 Performed By: #### L 100.0100 ####[facility] [address] [place], [address] Platelets (Bld) [#/Vol] 201 10*3/uL Normal 150-450 [facility] Comment on above: Order Comment: 109-1 Performed By: #### L 100.0100 ####[facility] [address] [place], [address] RBC (Bld) [#/Vol] 4.08 10*6/uL Low 4.6-6.2 [facility] Comment on above: Order Comment: 109-1 Performed By: #### L 100.0100 ####[facility] [address] [place], [address] RDW SD 44.0 fl High 35.1-43.9 [facility] Comment on above: Order Comment: 109-1 Performed By: #### L 100.0100 ####[facility] [address] [place], [address] WBC (Bld) [#/Vol] 7.5 10*3/uL Normal 4.4-11.0 [facility] Comment on above: Order Comment: 109-1 Performed By: #### L 100.0100 ####[facility] [address] [place], [address] Eosinophil percentageOrdered By: Renard Burgos on 10-28-2024 Eosinophils/100 WBC (Bld) 1.2 % 0-5 [facility] Erythrocyte distribution wid th ratioOrdered By: Renard Burgos on 10-28-2024 Erythrocyte distribution width (RBC) [Ratio] 13.2 % 11.6-14.6 [facility] Erythrocyte distribution wid th standard deviationOrdered By: Renard Burgos on 10-28-2024 Erythrocyte distribution width (RBC) [Ratio] 44.0 fl High 35.1-43.9 [facility] Hematocrit Auto (Bld) [Volum e fraction]Ordered By: Renard Burgos on 10-28-2024 Hematocrit (Bld) [Volume fraction] 37.3 % Low 40-54 [facility] Hemoglobin measurementOrdere d By: Renard Burgos on 10-28-2024 Hemoglobin (Bld) [Mass/Vol] 12.3 g/dL Low 13.0-16.5 [facility] Immature granulocytes/100 WB C Auto (Bld)Ordered By: Renard Burgos on 10-28-2024 Immature granulocytes/100 WBC (Bld) 0.100 % 0.0-0.9 [facility] Comment on above: IG% - Immature Granu locytes (promyelocytes, myelocytes and metamyelocytes) > 1% indicates that a LEFT SHIFT is Present. MCV (mean corpuscular volume ) determinationOrdered By: Renard Burgos on 10-28-2024 MCV (RBC) [Entitic vol] 91.4 fL 80-94 [facility] Mean corpuscular hemoglobin (MCH) determinationOrdered By: Renard Burgos on 10-28-2024 MCH (RBC) [Entitic mass] 30.1 pg 27.0-32.0 [facility] Mean corpuscular hemoglobin concentration (MCHC) determinationOrdered By: Renard Burgos on 10-28-2024 MCHC (RBC) [Mass/Vol] 33.0 g/dL 32-36 [facility] Mean platelet volume determi nationOrdered By: Renard Burgos on 10-28-2024 Platelet mean volume (Bld) [Entitic vol] 11.3 fL 6.2-12.0 [facility] Monocyte percentageOrdered B y: Renard Burgos on 10-28-2024 Monocytes/100 WBC (Bld) 8.1 % 0-10 [facility] Neutrophil percentageOrdered By: Renard Burgos on 10-28-2024 Neutrophils/100 WBC (Bld) 67.0 % 47-70 [facility] Nucleated red blood cell per centageOrdered By: Renard Burgos on 10-28-2024 Nucleated RBC/100 WBC (Bld) [Ratio] 0 % 0-5 [facility] Platelet countOrdered By: Garrick Bhatt on 10-28-2024 Platelets (Bld) [#/Vol] 201 10*3/uL 150-450 [facility] RBC Auto (Bld) [#/Vol]Ordere d By: Renard Burgos on 10-28-2024 RBC (Bld) [#/Vol] 4.08 10*6/uL Low 4.6-6.2 [facility] White blood cell (WBC) count Ordered By: Renard Burgos on 10-28-2024 WBC (Bld) [#/Vol] 7.5 10*3/uL 4.4-11.0 [facility] Absolute lymphocyte countOrd ered By: Renard Burgos on 10-21-2024 Lymphocytes Auto (Unsp spec) [#/Vol] 2.41 10*3/uL 0.83-4.51 [facility] Absolute neutrophil countOrd ered By: Renard Burgos on 10-21-2024 Neutrophils (Bld) [#/Vol] 5.2 10*3/uL 2.0-7.7 [facility] Automated lymphocyte count a s percentage of total leukocytesOrdered By: Renard Burgos on 10-21-2024 Lymphocytes/100 WBC Auto (Unsp spec) 28.2 % 19-41 [facility] Basophil percentageOrdered B y: Renard Burgos on 10-21-2024 Basophils/100 WBC (Bld) 0.6 % 0-1 [facility] CBC W/Diff, Automatedon 09-30 Absolute Lymph 2.41 X10 3/uL Normal 0.83-4.51 [facility] Comment on above: Order Comment: 109 Performed By: #### L 100.0100 ####[facility] [address] [place], [address] Absolute Neut 5.2 X10 3/uL Normal 2.0-7.7 [facility] Comment on above: Order Comment: 109 Performed By: #### L 100.0100 ####[facility] [address] [place], [address] Basophils/100 WBC (Bld) 0.6 % Normal 0-1 [facility] Comment on above: Order Comment: 109 Performed By: #### L 100.0100 ####[facility] [address] [place], [address] Eosinophils/100 WBC (Bld) 0.8 % Normal 0-5 [facility] Comment on above: Order Comment: 109 Performed By: #### L 100.0100 ####[facility] [address] [place], [address] Erythrocyte distribution width (RBC) [Ratio] 13.3 % Normal 11.6-14.6 [facility] Comment on above: Order Comment: 109 Performed By: #### L 100.0100 ####[facility] [address] [place], [address] Hematocrit (Bld) [Volume fraction] 38.9 % Low 40-54 [facility] Comment on above: Order Comment: 109 Performed By: #### L 100.0100 ####[facility] [address] [place], [address] Hemoglobin (Bld) [Mass/Vol] 12.8 g/dL Low 13.0-16.5 [facility] Comment on above: Order Comment: 109 Performed By: #### L 100.0100 ####[facility] [address] [place], [address] IG% 0.400 Normal 0.0-0.9 [facility] Comment on above: Order Comment: 109 Result Comment: IG% - Immature Granulocytes (promyelocytes, myelocytes andmetamyelocytes) > 1% indicates that a LEFT SHIFT is Present. Performed By: #### L 100.0100 ####[facility] [address] [place], [address] Lymphocytes/100 WBC (Bld) 28.2 % Normal 19-41 [facility] Comment on above: Order Comment: 109 Performed By: #### L 100.0100 ####[facility] [address] [place], [address] MCH (RBC) [Entitic mass] 30.1 pg Normal 27.0-32.0 [facility] Comment on above: Order Comment: 109 Performed By: #### L 100.0100 ####[facility] [address] [place], [address] MCHC (RBC) [Mass/Vol] 32.9 g/dL Normal 32-36 [facility] Comment on above: Order Comment: 109 Performed By: #### L 100.0100 ####[facility] [address] [place], [address] MCV (RBC) [Entitic vol] 91.5 fL Normal 80-94 [facility] Comment on above: Order Comment: 109 Performed By: #### L 100.0100 ####[facility] [address] [place], [address] Monocytes/100 WBC (Bld) 9.1 % Normal 0-10 [facility] Comment on above: Order Comment: 109 Performed By: #### L 100.0100 ####[facility] [address] [place], [address] Neutrophils/100 WBC (Bld) 60.9 % Normal 47-70 [facility] [facility] Comment on above: Order Comment: 109 Performed By: #### L 100.0100 ####[facility] [address] [place], [address] Nucleated RBC (Bld) [#/Vol] 0 10*3/uL Normal 0-5 [facility] Comment on above: Order Comment: 109 Performed By: #### L 100.0100 ####[facility] [address] [place], [address] Platelet mean volume (Bld) [Entitic vol] 11.2 fL Normal 6.2-12.0 [facility] Comment on above: Order Comment: 109 Performed By: #### L 100.0100 ####[facility] [address] [place], [address] Platelets (Bld) [#/Vol] 204 10*3/uL Normal 150-450 [facility] Comment on above: Order Comment: 109 Performed By: #### L 100.0100 ####[facility] [address] [place], [address] RBC (Bld) [#/Vol] 4.25 10*6/uL Low 4.6-6.2 [facility] Comment on above: Order Comment: 109 Performed By: #### L 100.0100 ####[facility] [address] [place], [address] RDW SD 44.5 fl High 35.1-43.9 [facility] Comment on above: Order Comment: 109 Performed By: #### L 100.0100 ####[facility] [address] [place], [address] WBC (Bld) [#/Vol] 8.5 10*3/uL Normal 4.4-11.0 [facility] Comment on above: Order Comment: 109 Performed By: #### L 100.0100 ####[facility] [address] [place], [address] Eosinophil percentageOrdered By: Renard Burgos on 10-21-2024 Eosinophils/100 WBC (Bld) 0.8 % 0-5 [facility] Erythrocyte distribution wid th ratioOrdered By: Renard Burgos on 10-21-2024 Erythrocyte distribution width (RBC) [Ratio] 13.3 % 11.6-14.6 [facility] Erythrocyte distribution wid th standard deviationOrdered By: Renard Burgos on 10-21-2024 Erythrocyte distribution width (RBC) [Ratio] 44.5 fl High 35.1-43.9 [facility] Hematocrit Auto (Bld) [Volum e fraction]Ordered By: Renard Burgos on 10-21-2024 Hematocrit (Bld) [Volume fraction] 38.9 % Low 40-54 [facility] Hemoglobin measurementOrdere d By: Renard Burgos on 10-21-2024 Hemoglobin (Bld) [Mass/Vol] 12.8 g/dL Low 13.0-16.5 [facility] Immature granulocytes/100 WB C Auto (Bld)Ordered By: Renard Burgos on 10-21-2024 Immature granulocytes/100 WBC (Bld) 0.400 % 0.0-0.9 [facility] Comment on above: IG% - Immature Granu locytes (promyelocytes, myelocytes and metamyelocytes) > 1% indicates that a LEFT SHIFT is Present. MCV (mean corpuscular volume ) determinationOrdered By: Renard Burgos on 10-21-2024 MCV (RBC) [Entitic vol] 91.5 fL 80-94 [facility] Mean corpuscular hemoglobin (MCH) determinationOrdered By: Renard Burgos on 10-21-2024 MCH (RBC) [Entitic mass] 30.1 pg 27.0-32.0 [facility] Mean corpuscular hemoglobin concentration (MCHC) determinationOrdered By: Renard Burgos on 10-21-2024 MCHC (RBC) [Mass/Vol] 32.9 g/dL 32-36 [facility] Mean platelet volume determi nationOrdered By: Renard Burgos on 10-21-2024 Platelet mean volume (Bld) [Entitic vol] 11.2 fL 6.2-12.0 [facility] Monocyte percentageOrdered B y: Renard Burgos on 10-21-2024 Monocytes/100 WBC (Bld) 9.1 % 0-10 [facility] Neutrophil percentageOrdered By: Renard Burgos on 10-21-2024 Neutrophils/100 WBC (Bld) 60.9 % 47-70 [facility] Nucleated red blood cell per centageOrdered By: Renard Burgos on 10-21-2024 Nucleated RBC/100 WBC (Bld) [Ratio] 0 % 0-5 [facility] Platelet countOrdered By: Garrick Bhatt on 10-21-2024 Platelets (Bld) [#/Vol] 204 10*3/uL 150-450 [facility] RBC Auto (Bld) [#/Vol]Ordere d By: Renard Burgos on 10-21-2024 RBC (Bld) [#/Vol] 4.25 10*6/uL Low 4.6-6.2 [facility] White blood cell (WBC) count Ordered By: Renard Burgos on 10-21-2024 WBC (Bld) [#/Vol] 8.5 10*3/uL 4.4-11.0 [facility] Absolute lymphocyte countOrd ered By: Renard Burgos on 10-14-2024 Lymphocytes Auto (Unsp spec) [#/Vol] 1.77 10*3/uL 0.83-4.51 [facility] Absolute neutrophil countOrd ered By: Renard Burgos on 10-14-2024 Neutrophils (Bld) [#/Vol] 4.8 10*3/uL 2.0-7.7 [facility] Automated lymphocyte count a s percentage of total leukocytesOrdered By: Renard Burgos on 10-14-2024 Lymphocytes/100 WBC Auto (Unsp spec) 24.2 % 19-41 [facility] Basophil percentageOrdered B y: Renard Burgos on 10-14-2024 Basophils/100 WBC (Bld) 0.7 % 0-1 [facility] CBC W/Diff, Automatedon 09-29 Absolute Lymph 1.77 X10 3/uL Normal 0.83-4.51 [facility] Comment on above: Order Comment: 109 Performed By: #### L 100.0100 ####[facility] [address] [place], [address] Absolute Neut 4.8 X10 3/uL Normal 2.0-7.7 [facility] Comment on above: Order Comment: 109 Performed By: #### L 100.0100 ####[facility] [address] [place], [address] Basophils/100 WBC (Bld) 0.7 % Normal 0-1 [facility] Comment on above: Order Comment: 109 Performed By: #### L 100.0100 ####[facility] [address] [place], [address] Eosinophils/100 WBC (Bld) 0.8 % Normal 0-5 [facility] Comment on above: Order Comment: 109 Performed By: #### L 100.0100 ####[facility] [address] [place], [address] Erythrocyte distribution width (RBC) [Ratio] 13.2 % Normal 11.6-14.6 [facility] Comment on above: Order Comment: 109 Performed By: #### L 100.0100 ####[facility] [address] [place], [address] Hematocrit (Bld) [Volume fraction] 42.7 % Normal 40-54 [facility] Comment on above: Order Comment: 109 Performed By: #### L 100.0100 ####[facility] [address] [place], [address] Hemoglobin (Bld) [Mass/Vol] 13.9 g/dL Normal 13.0-16.5 [facility] Comment on above: Order Comment: 109 Performed By: #### L 100.0100 ####[facility] [address] [place], [address] IG% 0.300 Normal 0.0-0.9 [facility] Comment on above: Order Comment: 109 Result Comment: IG% - Immature Granulocytes (promyelocytes, myelocytes andmetamyelocytes) > 1% indicates that a LEFT SHIFT is Present. Performed By: #### L 100.0100 ####[facility] [address] [place], [address] Lymphocytes/100 WBC (Bld) 24.2 % Normal 19-41 [facility] Comment on above: Order Comment: 109 Performed By: #### L 100.0100 ####[facility] [address] [place], [address] MCH (RBC) [Entitic mass] 29.7 pg Normal 27.0-32.0 [facility] Comment on above: Order Comment: 109 Performed By: #### L 100.0100 ####[facility] [address] [place], [address] MCHC (RBC) [Mass/Vol] 32.6 g/dL Normal 32-36 [facility] Comment on above: Order Comment: 109 Performed By: #### L 100.0100 ####[facility] [address] [place], [address] MCV (RBC) [Entitic vol] 91.2 fL Normal 80-94 [facility] Comment on above: Order Comment: 109 Performed By: #### L 100.0100 ####[facility] [address] [place], [address] Monocytes/100 WBC (Bld) 8.6 % Normal 0-10 [facility] Comment on above: Order Comment: 109 Performed By: #### L 100.0100 ####[facility] [address] [place], [address] Neutrophils/100 WBC (Bld) 65.4 % Normal 47-70 [facility] Comment on above: Order Comment: 109 Performed By: #### L 100.0100 ####[facility] [address] [place], [address] Nucleated RBC (Bld) [#/Vol] 0 10*3/uL Normal 0-5 [facility] Comment on above: Order Comment: 109 Performed By: #### L 100.0100 ####[facility] [address] [place], [address] Platelet mean volume (Bld) [Entitic vol] 11.1 fL Normal 6.2-12.0 [facility] Comment on above: Order Comment: 109 Performed By: #### L 100.0100 ####[facility] [address] [place], [address] Platelets (Bld) [#/Vol] 232 10*3/uL Normal 150-450 [facility] Comment on above: Order Comment: 109 Performed By: #### L 100.0100 ####[facility] [address] [place], [address] RBC (Bld) [#/Vol] 4.68 10*6/uL Normal 4.6-6.2 [facility] Comment on above: Order Comment: 109 Performed By: #### L 100.0100 ####[facility] [address] [place], [address] RDW SD 44.1 fl High 35.1-43.9 [facility] Comment on above: Order Comment: 109 Performed By: #### L 100.0100 ####[facility] [address] [place], [address] WBC (Bld) [#/Vol] 7.3 10*3/uL Normal 4.4-11.0 [facility] Comment on above: Order Comment: 109 Performed By: #### L 100.0100 ####[facility] [address] [place], [address] Eosinophil percentageOrdered By: Renard Burgos on 10-14-2024 Eosinophils/100 WBC (Bld) 0.8 % 0-5 [facility] Erythrocyte distribution wid th ratioOrdered By: Renard Burgos on 10-14-2024 Erythrocyte distribution width (RBC) [Ratio] 13.2 % 11.6-14.6 [facility] Erythrocyte distribution wid th standard deviationOrdered By: Renard Burgos on 10-14-2024 Erythrocyte distribution width (RBC) [Ratio] 44.1 fl High 35.1-43.9 [facility] Hematocrit Auto (Bld) [Volum e fraction]Ordered By: Renard Burgos on 10-14-2024 Hematocrit (Bld) [Volume fraction] 42.7 % 40-54 [facility] Hemoglobin measurementOrdere d By: Renard Burgos on 10-14-2024 Hemoglobin (Bld) [Mass/Vol] 13.9 g/dL 13.0-16.5 [facility] Immature granulocytes/100 WB C Auto (Bld)Ordered By: Renard Burgos on 10-14-2024 Immature granulocytes/100 WBC (Bld) 0.300 % 0.0-0.9 [facility] Comment on above: IG% - Immature Granu locytes (promyelocytes, myelocytes and metamyelocytes) > 1% indicates that a LEFT SHIFT is Present. MCV (mean corpuscular volume ) determinationOrdered By: Renard Burgos on 10-14-2024 MCV (RBC) [Entitic vol] 91.2 fL 80-94 [facility] Mean corpuscular hemoglobin (MCH) determinationOrdered By: Renard Burgos on 10-14-2024 MCH (RBC) [Entitic mass] 29.7 pg 27.0-32.0 [facility] Mean corpuscular hemoglobin concentration (MCHC) determinationOrdered By: Renard Burgos on 10-14-2024 MCHC (RBC) [Mass/Vol] 32.6 g/dL 32-36 [facility] Mean platelet volume determi nationOrdered By: Renard Burgos on 10-14-2024 Platelet mean volume (Bld) [Entitic vol] 11.1 fL 6.2-12.0 [facility] Monocyte percentageOrdered B y: Renard Burgos on 10-14-2024 Monocytes/100 WBC (Bld) 8.6 % 0-10 [facility] Neutrophil percentageOrdered By: Renard Burgos on 10-14-2024 Neutrophils/100 WBC (Bld) 65.4 % 47-70 [facility] Nucleated red blood cell per centageOrdered By: Renard Burgos on 10-14-2024 Nucleated RBC/100 WBC (Bld) [Ratio] 0 % 0-5 [facility] Platelet countOrdered By: Garrick Bhatt on 10-14-2024 Platelets (Bld) [#/Vol] 232 10*3/uL 150-450 [facility] RBC Auto (Bld) [#/Vol]Ordere d By: Renard Burgos on 10-14-2024 RBC (Bld) [#/Vol] 4.68 10*6/uL 4.6-6.2 [facility] White blood cell (WBC) count Ordered By: Renard Burgos on 10-14-2024 WBC (Bld) [#/Vol] 7.3 10*3/uL 4.4-11.0 [facility] Absolute lymphocyte countOrd ered By: Renard Burgos on 10-07-2024 Lymphocytes Auto (Unsp spec) [#/Vol] 2.20 10*3/uL 0.83-4.51 [facility] Absolute neutrophil countOrd ered By: Renard Burgos on 10-07-2024 Neutrophils (Bld) [#/Vol] 5.1 10*3/uL 2.0-7.7 [facility] Automated lymphocyte count a s percentage of total leukocytesOrdered By: Renard Burgos on 10-07-2024 Lymphocytes/100 WBC Auto (Unsp spec) 27.2 % 19-41 [facility] Basophil percentageOrdered B y: Renard Burgos on 10-07-2024 Basophils/100 WBC (Bld) 0.5 % 0-1 [facility] CBC W/Diff, Automatedon Absolute Lymph 2.20 X10 3/uL Normal 0.83-4.51 [facility] Comment on above: Order Comment: 109-1 Performed By: #### L 100.0100 ####[facility] [address] [place], [address] Absolute Neut 5.1 X10 3/uL Normal 2.0-7.7 [facility] Comment on above: Order Comment: 109-1 Performed By: #### L 100.0100 ####[facility] [address] [place], [address] Basophils/100 WBC (Bld) 0.5 % Normal 0-1 [facility] Comment on above: Order Comment: 109-1 Performed By: #### L 100.0100 ####[facility] [address] [place], [address] Eosinophils/100 WBC (Bld) 0.9 % Normal 0-5 [facility] Comment on above: Order Comment: 109-1 Performed By: #### L 100.0100 ####[facility] [address] [place], [address] Erythrocyte distribution width (RBC) [Ratio] 13.2 % Normal 11.6-14.6 [facility] Comment on above: Order Comment: 109-1 Performed By: #### L 100.0100 ####[facility] [address] [place], [address] Hematocrit (Bld) [Volume fraction] 40.8 % Normal 40-54 [facility] Comment on above: Order Comment: 109-1 Performed By: #### L 100.0100 ####[facility] [address] [place], [address] Hemoglobin (Bld) [Mass/Vol] 13.8 g/dL Normal 13.0-16.5 [facility] Comment on above: Order Comment: 109-1 Performed By: #### L 100.0100 ####[facility] [address] [place], [address] IG% 0.200 Normal 0.0-0.9 [facility] Comment on above: Order Comment: 109-1 Result Comment: IG% - Immature Granulocytes (promyelocytes, myelocytes andmetamyelocytes) > 1% indicates that a LEFT SHIFT is Present. Performed By: #### L 100.0100 ####[facility] [address] [place], [address] Lymphocytes/100 WBC (Bld) 27.2 % Normal 19-41 [facility] Comment on above: Order Comment: 109-1 Performed By: #### L 100.0100 ####[facility] [address] [place], [address] MCH (RBC) [Entitic mass] 30.0 pg Normal 27.0-32.0 [facility] Comment on above: Order Comment: 109-1 Performed By: #### L 100.0100 ####[facility] [address] [place], [address] MCHC (RBC) [Mass/Vol] 33.8 g/dL Normal 32-36 [facility] Comment on above: Order Comment: 109-1 Performed By: #### L 100.0100 ####[facility] [address] [place], [address] MCV (RBC) [Entitic vol] 88.7 fL Normal 80-94 [facility] Comment on above: Order Comment: 109-1 Performed By: #### L 100.0100 ####[facility] [address] [place], [address] Monocytes/100 WBC (Bld) 8.4 % Normal 0-10 [facility] Comment on above: Order Comment: 109-1 Performed By: #### L 100.0100 ####[facility] [address] [place], [address] Neutrophils/100 WBC (Bld) 62.8 % Normal 47-70 [facility] Comment on above: Order Comment: 109-1 Performed By: #### L 100.0100 ####[facility] [address] [place], [address] Nucleated RBC (Bld) [#/Vol] 0 10*3/uL Normal 0-5 [facility] Comment on above: Order Comment: 109-1 Performed By: #### L 100.0100 ####[facility] [address] [place], [address] Platelet mean volume (Bld) [Entitic vol] 11.2 fL Normal 6.2-12.0 [facility] Comment on above: Order Comment: 109-1 Performed By: #### L 100.0100 ####[facility] [address] [place], [address] Platelets (Bld) [#/Vol] 214 10*3/uL Normal 150-450 [facility] Comment on above: Order Comment: 109-1 Performed By: #### L 100.0100 ####[facility] [address] [place], [address] RBC (Bld) [#/Vol] 4.60 10*6/uL Normal 4.6-6.2 [facility] Comment on above: Order Comment: 109-1 Performed By: #### L 100.0100 ####[facility] [address] [place], [address] RDW SD 43.0 fl Normal 35.1-43.9 [facility] Comment on above: Order Comment: 109-1 Performed By: #### L 100.0100 ####[facility] [address] [place], [address] WBC (Bld) [#/Vol] 8.1 10*3/uL Normal 4.4-11.0 [facility] Comment on above: Order Comment: 109-1 Performed By: #### L 100.0100 ####[facility] [address] [place], [address] Eosinophil percentageOrdered By: Renard Burgos on 10-07-2024 Eosinophils/100 WBC (Bld) 0.9 % 0-5 [facility] Erythrocyte distribution wid th ratioOrdered By: Renard Burgos on 10-07-2024 Erythrocyte distribution width (RBC) [Ratio] 13.2 % 11.6-14.6 [facility] Erythrocyte distribution wid th standard deviationOrdered By: Renard Burgos on 10-07-2024 Erythrocyte distribution width (RBC) [Ratio] 43.0 fl 35.1-43.9 [facility] Hematocrit Auto (Bld) [Volum e fraction]Ordered By: Renard Burgos on 10-07-2024 Hematocrit (Bld) [Volume fraction] 40.8 % 40-54 [facility] Hemoglobin measurementOrdere d By: Renard Burgos on 10-07-2024 Hemoglobin (Bld) [Mass/Vol] 13.8 g/dL 13.0-16.5 [facility] Immature granulocytes/100 WB C Auto (Bld)Ordered By: Renard Burgos on 10-07-2024 Immature granulocytes/100 WBC (Bld) 0.200 % 0.0-0.9 [facility] Comment on above: IG% - Immature Granu locytes (promyelocytes, myelocytes and metamyelocytes) > 1% indicates that a LEFT SHIFT is Present. MCV (mean corpuscular volume ) determinationOrdered By: Renard Burgos on 10-07-2024 MCV (RBC) [Entitic vol] 88.7 fL 80-94 [facility] Mean corpuscular hemoglobin (MCH) determinationOrdered By: Renard Burgos on 10-07-2024 MCH (RBC) [Entitic mass] 30.0 pg 27.0-32.0 [facility] Mean corpuscular hemoglobin concentration (MCHC) determinationOrdered By: Renard Burgos on 10-07-2024 MCHC (RBC) [Mass/Vol] 33.8 g/dL 32-36 [facility] Mean platelet volume determi nationOrdered By: Renard Burgos on 10-07-2024 Platelet mean volume (Bld) [Entitic vol] 11.2 fL 6.2-12.0 [facility] Monocyte percentageOrdered B y: Renard Burgos on 10-07-2024 Monocytes/100 WBC (Bld) 8.4 % 0-10 [facility] Neutrophil percentageOrdered By: Renard Burgos on 10-07-2024 Neutrophils/100 WBC (Bld) 62.8 % 47-70 [facility] Nucleated red blood cell per centageOrdered By: Renard Burgos on 10-07-2024 Nucleated RBC/100 WBC (Bld) [Ratio] 0 % 0-5 [facility] Platelet countOrdered By: Garrick Bhatt on 10-07-2024 Platelets (Bld) [#/Vol] 214 10*3/uL 150-450 [facility] RBC Auto (Bld) [#/Vol]Ordere d By: Renard Burgos on 10-07-2024 RBC (Bld) [#/Vol] 4.60 10*6/uL 4.6-6.2 [facility] White blood cell (WBC) count Ordered By: Renard Burgos on 10-07-2024 WBC (Bld) [#/Vol] 8.1 10*3/uL 4.4-11.0 [facility] Absolute lymphocyte countOrd ered By: Renard Burgos on 09-30-2024 Lymphocytes Auto (Unsp spec) [#/Vol] 3.13 10*3/uL 0.83-4.51 [facility] Absolute neutrophil countOrd ered By: Renard Burgos on 09-30-2024 Neutrophils (Bld) [#/Vol] 5.6 10*3/uL 2.0-7.7 [facility] Automated lymphocyte count a s percentage of total leukocytesOrdered By: Renard Burgos on 09-30-2024 Lymphocytes/100 WBC Auto (Unsp spec) 31.7 % 19-41 [facility] Basophil percentageOrdered B y: Renard Burgos on 09-30-2024 Basophils/100 WBC (Bld) 0.6 % 0-1 [facility] CBC W/Diff, Automatedon Absolute Lymph 3.13 X10 3/uL Normal 0.83-4.51 [facility] Comment on above: Order Comment: 109-1 Performed By: #### L 100.0100 ####[facility] [address] [place], [address] Absolute Neut 5.6 X10 3/uL Normal 2.0-7.7 [facility] Comment on above: Order Comment: 109-1 Performed By: #### L 100.0100 ####[facility] [address] [place], [address] Basophils/100 WBC (Bld) 0.6 % Normal 0-1 [facility] Comment on above: Order Comment: 109-1 Performed By: #### L 100.0100 ####[facility] [address] [place], [address] Eosinophils/100 WBC (Bld) 0.7 % Normal 0-5 [facility] Comment on above: Order Comment: 109-1 Performed By: #### L 100.0100 ####[facility] [address] [place], [address] Erythrocyte distribution width (RBC) [Ratio] 13.0 % Normal 11.6-14.6 [facility] Comment on above: Order Comment: 109-1 Performed By: #### L 100.0100 ####[facility] [address] [place], [address] Hematocrit (Bld) [Volume fraction] 46.9 % Normal 40-54 [facility] Comment on above: Order Comment: 109-1 Performed By: #### L 100.0100 ####[facility] [address] [place], [address] Hemoglobin (Bld) [Mass/Vol] 15.3 g/dL Normal 13.0-16.5 [facility] Comment on above: Order Comment: 109-1 Performed By: #### L 100.0100 ####[facility] [address] [place], [address] IG% 0.300 Normal 0.0-0.9 [facility] Comment on above: Order Comment: 109-1 Result Comment: IG% - Immature Granulocytes (promyelocytes, myelocytes andmetamyelocytes) > 1% indicates that a LEFT SHIFT is Present. Performed By: #### L 100.0100 ####[facility] [address] [place], [address] Lymphocytes/100 WBC (Bld) 31.7 % Normal 19-41 [facility] Comment on above: Order Comment: 109-1 Performed By: #### L 100.0100 ####[facility] [address] [place], [address] MCH (RBC) [Entitic mass] 29.7 pg Normal 27.0-32.0 [facility] Comment on above: Order Comment: 109-1 Performed By: #### L 100.0100 ####[facility] [address] [place], [address] MCHC (RBC) [Mass/Vol] 32.6 g/dL Normal 32-36 [facility] Comment on above: Order Comment: 109-1 Performed By: #### L 100.0100 ####[facility] [address] [place], [address] MCV (RBC) [Entitic vol] 91.1 fL Normal 80-94 [facility] Comment on above: Order Comment: 109-1 Performed By: #### L 100.0100 ####[facility] [address] [place], [address] Monocytes/100 WBC (Bld) 10.4 % High 0-10 [facility] Comment on above: Order Comment: 109-1 Performed By: #### L 100.0100 ####[facility] [address] [place], [address] Neutrophils/100 WBC (Bld) 56.3 % Normal 47-70 [facility] Comment on above: Order Comment: 109-1 Performed By: #### L 100.0100 ####[facility] [address] [place], [address] Nucleated RBC (Bld) [#/Vol] 0 10*3/uL Normal 0-5 [facility] Comment on above: Order Comment: 109-1 Performed By: #### L 100.0100 ####[facility] [address] [place], [address] Platelet mean volume (Bld) [Entitic vol] 11.7 fL Normal 6.2-12.0 [facility] Comment on above: Order Comment: 109-1 Performed By: #### L 100.0100 ####[facility] [address] [place], [address] Platelets (Bld) [#/Vol] 208 10*3/uL Normal 150-450 [facility] Comment on above: Order Comment: 109-1 Performed By: #### L 100.0100 ####[facility] [address] [place], [address] RBC (Bld) [#/Vol] 5.15 10*6/uL Normal 4.6-6.2 [facility] Comment on above: Order Comment: 109-1 Performed By: #### L 100.0100 ####[facility] [address] [place], [address] RDW SD 42.7 fl Normal 35.1-43.9 [facility] Comment on above: Order Comment: 109-1 Performed By: #### L 100.0100 ####[facility] [address] [place], [address] WBC (Bld) [#/Vol] 9.9 10*3/uL Normal 4.4-11.0 [facility] Comment on above: Order Comment: 109-1 Performed By: #### L 100.0100 ####[facility] [address] [place], [address] Eosinophil percentageOrdered By: Renard Burgos on 09-30-2024 Eosinophils/100 WBC (Bld) 0.7 % 0-5 [facility] Erythrocyte distribution wid th ratioOrdered By: Renard Burgos on 09-30-2024 Erythrocyte distribution width (RBC) [Ratio] 13.0 % 11.6-14.6 [facility] Erythrocyte distribution wid th standard deviationOrdered By: Renard Burgos on 09-30-2024 Erythrocyte distribution width (RBC) [Ratio] 42.7 fl 35.1-43.9 [facility] Hematocrit Auto (Bld) [Volum e fraction]Ordered By: Renard Burgos on 09-30-2024 Hematocrit (Bld) [Volume fraction] 46.9 % 40-54 [facility] Hemoglobin measurementOrdere d By: Renard Burgos on 09-30-2024 Hemoglobin (Bld) [Mass/Vol] 15.3 g/dL 13.0-16.5 [facility] Immature granulocytes/100 WB C Auto (Bld)Ordered By: Renard Burgos on 09-30-2024 Immature granulocytes/100 WBC (Bld) 0.300 % 0.0-0.9 [facility] Comment on above: IG% - Immature Granu locytes (promyelocytes, myelocytes and metamyelocytes) > 1% indicates that a LEFT SHIFT is Present. MCV (mean corpuscular volume ) determinationOrdered By: Renard Burgos on 09-30-2024 MCV (RBC) [Entitic vol] 91.1 fL 80-94 [facility] Mean corpuscular hemoglobin (MCH) determinationOrdered By: Renard Burgos on 09-30-2024 MCH (RBC) [Entitic mass] 29.7 pg 27.0-32.0 [facility] Mean corpuscular hemoglobin concentration (MCHC) determinationOrdered By: Renard Burgos on 09-30-2024 MCHC (RBC) [Mass/Vol] 32.6 g/dL 32-36 [facility] Mean platelet volume determi nationOrdered By: Renard Burgos on 09-30-2024 Platelet mean volume (Bld) [Entitic vol] 11.7 fL 6.2-12.0 [facility] Monocyte percentageOrdered B y: Renard Burgos on 09-30-2024 Monocytes/100 WBC (Bld) 10.4 % High 0-10 [facility] Neutrophil percentageOrdered By: Renard Burgos on 09-30-2024 Neutrophils/100 WBC (Bld) 56.3 % 47-70 [facility] Nucleated red blood cell per centageOrdered By: Renard Burgos on 09-30-2024 Nucleated RBC/100 WBC (Bld) [Ratio] 0 % 0-5 [facility] Platelet countOrdered By: Garrick Bhatt on 09-30-2024 Platelets (Bld) [#/Vol] 208 10*3/uL 150-450 [facility] RBC Auto (Bld) [#/Vol]Ordere d By: Renard Burgos on 09-30-2024 RBC (Bld) [#/Vol] 5.15 10*6/uL 4.6-6.2 [facility] White blood cell (WBC) count Ordered By: Renard Burgos on 09-30-2024 WBC (Bld) [#/Vol] 9.9 10*3/uL 4.4-11.0 [facility] Absolute lymphocyte countOrd ered By: Renard Burgos on 09-24-2024 Lymphocytes Auto (Unsp spec) [#/Vol] 1.97 10*3/uL 0.83-4.51 [facility] Absolute neutrophil countOrd ered By: Renard Burgos on 09-24-2024 Neutrophils (Bld) [#/Vol] 6.8 10*3/uL 2.0-7.7 [facility] Automated blood erythrocyte countOrdered By: Renard Burgos on 09-24-2024 RBC (Bld) [#/Vol] 4.48 10*6/uL Low 4.6-6.2 [facility] Comment on above: Order Comment: 109 Performed By: #### L 100.0100 ####[facility] [address] [place], [place], [id number] Automated blood hematocrit ( percentage)Ordered By: Renard Burgos on 09-24-2024 Hematocrit (Bld) [Volume fraction] 40.4 % Normal 40-54 [facility] Comment on above: Order Comment: 109 Performed By: #### L 100.0100 ####[facility] [address] [place], [place], [id number] Automated lymphocyte count a s percentage of total leukocytesOrdered By: Renard Burgos on 09-24-2024 Lymphocytes/100 WBC Auto (Unsp spec) 20.5 % 19-41 [facility] Basophil percentageOrdered B y: Renard Burgos on 09-24-2024 Basophils/100 WBC (Bld) 0.5 % Normal 0-1 [facility] Comment on above: Order Comment: 109 Performed By: #### L 100.0100 ####[facility] [address] [place], [address] CBC W/Diff, Automatedon 05-2 Absolute Lymph 1.97 X10 3/uL Normal 0.83-4.51 [facility] Comment on above: Order Comment: 109 Performed By: #### L 100.0100 ####[facility] [address] [place], [address] Absolute Neut 6.8 X10 3/uL Normal 2.0-7.7 [facility] Comment on above: Order Comment: 109 Performed By: #### L 100.0100 ####[facility] [address] [place], [address] IG% 0.300 Normal 0.0-0.9 [facility] Comment on above: Order Comment: 109 Result Comment: IG% - Immature Granulocytes (promyelocytes, myelocytes andmetamyelocytes) > 1% indicates that a LEFT SHIFT is Present. Performed By: #### L 100.0100 ####[facility] [address] [place], [address] Lymphocytes/100 WBC (Bld) 20.5 % Normal 19-41 [facility] Comment on above: Order Comment: 109 Performed By: #### L 100.0100 ####[facility] [address] [place], [address] Nucleated RBC (Bld) [#/Vol] 0 10*3/uL Normal 0-5 [facility] Comment on above: Order Comment: 109 Performed By: #### L 100.0100 ####[facility] [address] [place], [address] RDW SD 42.9 fl Normal 35.1-43.9 [facility] Comment on above: Order Comment: 109 Performed By: #### L 100.0100 ####[facility] [address] [place], [place], [id number] Eosinophil percentageOrdered By: Renard Burgos on 09-24-2024 Eosinophils/100 WBC (Bld) 0.5 % Normal 0-5 [facility] Comment on above: Order Comment: 109 Performed By: #### L 100.0100 ####[facility] [address] [place], [place], [id number] Erythrocyte distribution wid th ratioOrdered By: Renard Burgos on 09-24-2024 Erythrocyte distribution width (RBC) [Ratio] 13.1 % Normal 11.6-14.6 [facility] Comment on above: Order Comment: 109 Performed By: #### L 100.0100 ####[facility] [address] [place], [place], [id number] Erythrocyte distribution wid th standard deviationOrdered By: Renard Burgos on 09-24-2024 Erythrocyte distribution width (RBC) [Ratio] 42.9 fl 35.1-43.9 [facility] Hemoglobin measurementOrdere d By: Renard Burgos on 09-24-2024 Hemoglobin (Bld) [Mass/Vol] 13.4 g/dL Normal 13.0-16.5 [facility] Comment on above: Order Comment: 109 Performed By: #### L 100.0100 ####[facility] [address] [place], [place], [phone] Immature granulocytes/100 WB C Auto (Bld)Ordered By: Renard Burgos on 09-24-2024 Immature granulocytes/100 WBC (Bld) 0.300 % 0.0-0.9 [facility] Comment on above: IG% - Immature Granu locytes (promyelocytes, myelocytes and metamyelocytes) > 1% indicates that a LEFT SHIFT is Present. MCV (mean corpuscular volume ) determinationOrdered By: Renard Burgos on 09-24-2024 MCV (RBC) [Entitic vol] 90.2 fL Normal 80-94 [facility] Comment on above: Order Comment: 109 Performed By: #### L 100.0100 ####[facility] [address] [place], [address] Mean corpuscular hemoglobin (MCH) determinationOrdered By: Renard Burgos on 09-24-2024 MCH (RBC) [Entitic mass] 29.9 pg Normal 27.0-32.0 [facility] Comment on above: Order Comment: 109 Performed By: #### L 100.0100 ####[facility] [address] [place], [address] Mean corpuscular hemoglobin concentration (MCHC) determinationOrdered By: Renard Burgos on 09-24-2024 MCHC (RBC) [Mass/Vol] 33.2 g/dL Normal 32-36 [facility] Comment on above: Order Comment: 109 Performed By: #### L 100.0100 ####[facility] [address] [place], [address] Mean platelet volume determi nationOrdered By: Renard Burgos on 09-24-2024 Platelet mean volume (Bld) [Entitic vol] 11.3 fL Normal 6.2-12.0 [facility] Comment on above: Order Comment: 109 Performed By: #### L 100.0100 ####[facility] [address] [place], [address] Monocyte percentageOrdered B y: Renard Burgos on 09-24-2024 Monocytes/100 WBC (Bld) 7.2 % Normal 0-10 [facility] Comment on above: Order Comment: 109 Performed By: #### L 100.0100 ####[facility] [address] [place], [address] Neutrophil percentageOrdered By: Renard Burgos on 09-24-2024 Neutrophils/100 WBC (Bld) 71.0 % High 47-70 [facility] Comment on above: Order Comment: 109 Performed By: #### L 100.0100 ####[facility] [address] [place], [address] Nucleated red blood cell per centageOrdered By: Renard Burgos on 09-24-2024 Nucleated RBC/100 WBC (Bld) [Ratio] 0 % 0-5 [facility] Platelet countOrdered By: Garrick Bhatt on 09-24-2024 Platelets (Bld) [#/Vol] 187 10*3/uL Normal 150-450 [facility] Comment on above: Order Comment: 109 Performed By: #### L 100.0100 ####[facility] [address] [place], [address] White blood cell (WBC) count Ordered By: Renard Burgos on 09-24-2024 WBC (Bld) [#/Vol] 9.6 10*3/uL Normal 4.4-11.0 [facility] Comment on above: Order Comment: 109 Performed By: #### L 100.0100 ####[facility] [address] [place], [address] Absolute lymphocyte countOrd ered By: Renard Burgos on 09-16-2024 Lymphocytes Auto (Unsp spec) [#/Vol] 2.44 10*3/uL 0.83-4.51 [facility] Absolute neutrophil countOrd ered By: Renard Burgos on 09-16-2024 Neutrophils (Bld) [#/Vol] 5.5 10*3/uL 2.0-7.7 [facility] Automated lymphocyte count a s percentage of total leukocytesOrdered By: Renard Burgos on 09-16-2024 Lymphocytes/100 WBC Auto (Unsp spec) 27.7 % 19- [facility] Basophil percentageOrdered B y: Renard Burgos on 09-16-2024 Basophils/100 WBC (Bld) 0.8 % 0-1 [facility] CBC W/Diff, Automatedon 08-29 Absolute Lymph 2.44 X10 3/uL Normal 0.83-4.51 [facility] Comment on above: Order Comment: 109.1 Performed By: #### L 100.0100 ####[facility] [address] [place], [address] Absolute Neut 5.5 X10 3/uL Normal 2.0-7.7 [facility] Comment on above: Order Comment: 109.1 Performed By: #### L 100.0100 ####[facility] [address] [place], [address] Basophils/100 WBC (Bld) 0.8 % Normal 0-1 [facility] Comment on above: Order Comment: 109.1 Performed By: #### L 100.0100 ####[facility] [address] [place], [address] Eosinophils/100 WBC (Bld) 0.7 % Normal 0-5 [facility] Comment on above: Order Comment: 109.1 Performed By: #### L 100.0100 ####[facility] [address] [place], [address] Erythrocyte distribution width (RBC) [Ratio] 13.1 % Normal 11.6-14.6 [facility] Comment on above: Order Comment: 109.1 Performed By: #### L 100.0100 ####[facility] [address] [place], [address] Hematocrit (Bld) [Volume fraction] 46.8 % Normal 40-54 [facility] Comment on above: Order Comment: 109.1 Performed By: #### L 100.0100 ####[facility] [address] [place], [address] Hemoglobin (Bld) [Mass/Vol] 15.4 g/dL Normal 13.0-16.5 [facility] Comment on above: Order Comment: 109.1 Performed By: #### L 100.0100 ####[facility] [address] [place], [address] IG% 0.200 Normal 0.0-0.9 [facility] Comment on above: Order Comment: 109.1 Result Comment: IG% - Immature Granulocytes (promyelocytes, myelocytes andmetamyelocytes) > 1% indicates that a LEFT SHIFT is Present. Performed By: #### L 100.0100 ####[facility] [address] [place], [address] Lymphocytes/100 WBC (Bld) 27.7 % Normal 19-41 [facility] Comment on above: Order Comment: 109.1 Performed By: #### L 100.0100 ####[facility] [address] [place], [address] MCH (RBC) [Entitic mass] 30.1 pg Normal 27.0-32.0 [facility] Comment on above: Order Comment: 109.1 Performed By: #### L 100.0100 ####[facility] [address] [place], [address] MCHC (RBC) [Mass/Vol] 32.9 g/dL Normal 32-36 [facility] Comment on above: Order Comment: 109.1 Performed By: #### L 100.0100 ####[facility] [address] [place], [address] MCV (RBC) [Entitic vol] 91.4 fL Normal 80-94 [facility] Comment on above: Order Comment: 109.1 Performed By: #### L 100.0100 ####[facility] [address] [place], [address] Monocytes/100 WBC (Bld) 8.5 % Normal 0-10 [facility] Comment on above: Order Comment: 109.1 Performed By: #### L 100.0100 ####[facility] [address] [place], [address] Neutrophils/100 WBC (Bld) 62.1 % Normal 47-70 [facility] Comment on above: Order Comment: 109.1 Performed By: #### L 100.0100 ####[facility] [address] [place], [address] Nucleated RBC (Bld) [#/Vol] 0 10*3/uL Normal 0-5 [facility] Comment on above: Order Comment: 109.1 Performed By: #### L 100.0100 ####[facility] [address] [place], [address] Platelet mean volume (Bld) [Entitic vol] 10.6 fL Normal 6.2-12.0 [facility] Comment on above: Order Comment: 109.1 Performed By: #### L 100.0100 ####[facility] [address] [place], [address] Platelets (Bld) [#/Vol] 190 10*3/uL Normal 150-450 [facility] Comment on above: Order Comment: 109.1 Performed By: #### L 100.0100 ####[facility] [address] [place], [address] RBC (Bld) [#/Vol] 5.12 10*6/uL Normal 4.6-6.2 [facility] Comment on above: Order Comment: 109.1 Performed By: #### L 100.0100 ####[facility] [address] [place], [address] RDW SD 43.3 fl Normal 35.1-43.9 [facility] Comment on above: Order Comment: 109.1 Performed By: #### L 100.0100 ####[facility] [address] [place], [address] WBC (Bld) [#/Vol] 8.8 10*3/uL Normal 4.4-11.0 [facility] Comment on above: Order Comment: 109.1 Performed By: #### L 100.0100 ####[facility] [address] [place], [address] Eosinophil percentageOrdered By: Renard Burgos on 09-16-2024 Eosinophils/100 WBC (Bld) 0.7 % 0-5 [facility] Erythrocyte distribution wid th ratioOrdered By: Renard Burgos on 09-16-2024 Erythrocyte distribution width (RBC) [Ratio] 13.1 % 11.6-14.6 [facility] Erythrocyte distribution wid th standard deviationOrdered By: Renard Burgos on 09-16-2024 Erythrocyte distribution width (RBC) [Ratio] 43.3 fl 35.1-43.9 [facility] Hematocrit Auto (Bld) [Volum e fraction]Ordered By: Renard Burgos on 09-16-2024 Hematocrit (Bld) [Volume fraction] 46.8 % 40-54 [facility] Hemoglobin measurementOrdere d By: Renard Burgos on 09-16-2024 Hemoglobin (Bld) [Mass/Vol] 15.4 g/dL 13.0-16.5 [facility] Immature granulocytes/100 WB C Auto (Bld)Ordered By: Renard Burgos on 09-16-2024 Immature granulocytes/100 WBC (Bld) 0.200 % 0.0-0.9 [facility] Comment on above: IG% - Immature Granu locytes (promyelocytes, myelocytes and metamyelocytes) > 1% indicates that a LEFT SHIFT is Present. MCV (mean corpuscular volume ) determinationOrdered By: Renard Burgos on 09-16-2024 MCV (RBC) [Entitic vol] 91.4 fL 80-94 [facility] Mean corpuscular hemoglobin (MCH) determinationOrdered By: Renard Burgos on 09-16-2024 MCH (RBC) [Entitic mass] 30.1 pg 27.0-32.0 [facility] Mean corpuscular hemoglobin concentration (MCHC) determinationOrdered By: Renard Burgos on 09-16-2024 MCHC (RBC) [Mass/Vol] 32.9 g/dL 32-36 [facility] Mean platelet volume determi nationOrdered By: Renard Burgos on 09-16-2024 Platelet mean volume (Bld) [Entitic vol] 10.6 fL 6.2-12.0 [facility] Monocyte percentageOrdered B y: Renard Burgos on 09-16-2024 Monocytes/100 WBC (Bld) 8.5 % 0-10 [facility] Neutrophil percentageOrdered By: Renard Burgos on 09-16-2024 Neutrophils/100 WBC (Bld) 62.1 % 47-70 [facility] Nucleated red blood cell per centageOrdered By: Renard Burgos on 09-16-2024 Nucleated RBC/100 WBC (Bld) [Ratio] 0 % 0-5 [facility] Platelet countOrdered By: Garrick Bhatt on 09-16-2024 Platelets (Bld) [#/Vol] 190 10*3/uL 150-450 [facility] RBC Auto (Bld) [#/Vol]Ordere d By: Renard Burgos on 09-16-2024 RBC (Bld) [#/Vol] 5.12 10*6/uL 4.6-6.2 [facility] White blood cell (WBC) count Ordered By: Renard Burgos on 09-16-2024 WBC (Bld) [#/Vol] 8.8 10*3/uL 4.4-11.0 [facility] Anion gap in Serum or Plasma Ordered By: Renard Burgos on 09-11-2024 Anion gap [Moles/Vol] 11 mmol/L 5-15 [facility] Automated blood erythrocyte countOrdered By: Renard Burgos on 09-11-2024 RBC (Bld) [#/Vol] 4.67 10*6/uL Normal 4.6-6.2 [facility] Comment on above: Order Comment: 109-1 Performed By: #### L 100.0500, L500.2500 ####[facility] [address] [place], [address] Automated blood hematocrit ( percentage)Ordered By: Renard Burgos on 09-11-2024 Hematocrit (Bld) [Volume fraction] 42.7 % Normal 40-54 [facility] Comment on above: Order Comment: 109-1 Performed By: #### L 100.0500, L500.2500 ####[facility] [address] [place], [address] BUN/creatinine ratioOrdered By: Renard Burgos on 09-11-2024 Urea nitrogen/Creatinine [Mass ratio] 23.0 mg/mg High 10-20 [facility] Basic Metabolic Profile (BMP )on 09-11-2024 BUN/CRE 23.0 RATIO High 10-20 [facility] Comment on above: Order Comment: 109-1 Performed By: #### L 100.0500, L500.2500 ####[facility] [address] [place], [address] Calcium [Mass/Vol] 8.7 mg/dL Normal 7.6-11.0 [facility] Comment on above: Order Comment: 109-1 Performed By: #### L 100.0500, L500.2500 ####[facility] [address] [place], [address] Chloride [Moles/Vol] 104 mmol/L Normal 98-108 [facility] Comment on above: Order Comment: 109-1 Performed By: #### L 100.0500, L500.2500 ####[facility] [address] [place], [address] CO2 [Moles/Vol] 25.9 mmol/L Normal 21.0-32.0 [facility] Comment on above: Order Comment: 109-1 Performed By: #### L 100.0500, L500.2500 ####[facility] [address] [place], [address] Creatinine [Mass/Vol] 0.58 mg/dL Low 0.70-1.20 [facility] Comment on above: Order Comment: 109-1 Performed By: #### L 100.0500, L500.2500 ####[facility] [address] [place], [address] GAP 11 Normal 5-15 [facility] Comment on above: Order Comment: 109-1 Performed By: #### L 100.0500, L500.2500 ####[facility] [address] [place], [address] GFR/1.73 sq M.predicted among non-blacks MDRD (S/P/Bld) [Vol rate/Area] 107 mL/min/{1.73_m2} Normal >60 [facility] Comment on above: Order Comment: 109-1 Result Comment: mL/m in/1.73m2 CKD-EPI Creatinine Equation (2020) Performed By: #### L 100.0500, L500.2500 ####[facility] [address] [place], [address] Glucose [Mass/Vol] 113 mg/dL High 70-99 [facility] Comment on above: Order Comment: 109-1 Performed By: #### L 100.0500, L500.2500 ####[facility] [address] [place], [address] Potassium [Moles/Vol] 3.8 mmol/L Normal 3.3-5.1 [facility] Comment on above: Order Comment: 109-1 Performed By: #### L 100.0500, L500.2500 ####[facility] [address] [place], [address] Sodium [Moles/Vol] 141 mmol/L Normal 133-145 [facility] Comment on above: Order Comment: 109-1 Performed By: #### L 100.0500, L500.2500 ####[facility] [address] [place], [address] Urea nitrogen [Mass/Vol] 13 mg/dL Normal 4-19 [facility] Comment on above: Order Comment: 109-1 Performed By: #### L 100.0500, L500.2500 ####[facility] [address] [place], [address] CBC-Complete Blood Cnt No Di ffon 09-11-2024 RDW SD 43.7 fl Normal 35.1-43.9 [facility] Comment on above: Order Comment: 109-1 Performed By: #### L 100.0500, L500.2500 ####[facility] [address] [place], [place], [address] Carbon dioxide, total [Moles /volume] in Central venous bloodOrdered By: Renard Burgos on 09-11-2024 CO2 [Moles/Vol] 25.9 mmol/L 21.0-32.0 [facility] Chloride assayOrdered By: Garrick Bhatt on 09-11-2024 Chloride [Moles/Vol] 104 mmol/L 98-108 [facility] Erythrocyte distribution wid th ratioOrdered By: Renard Burgos on 09-11-2024 Erythrocyte distribution width (RBC) [Ratio] 13.2 % Normal 11.6-14.6 [facility] Comment on above: Order Comment: 109-1 Performed By: #### L 100.0500, L500.2500 ####[facility] [address] [place], [place], [address] Erythrocyte distribution wid th standard deviationOrdered By: Renard Burgos on 09-11-2024 Erythrocyte distribution width (RBC) [Ratio] 43.7 fl 35.1-43.9 [facility] Glomerular filtration rate ( GFR) estimation/1.73 sq m using serum, plasma, or whole bOrdered By: Renard Burgos on 09-11-2024 GFR/1.73 sq M.predicted among non-blacks MDRD (S/P/Bld) [Vol rate/Area] 107 mL/min/{1.73_m2} >60 [facility] Comment on above: mL/min/1.73m2 CKD-EP I Creatinine Equation (2020) Hemoglobin measurementOrdere d By: Renard Burgos on 09-11-2024 Hemoglobin (Bld) [Mass/Vol] 14.0 g/dL Normal 13.0-16.5 [facility] Comment on above: Order Comment: 109-1 Performed By: #### L 100.0500, L500.2500 ####[facility] [address] [place], [address] MCV (mean corpuscular volume ) determinationOrdered By: Renard Burgos on 09-11-2024 MCV (RBC) [Entitic vol] 91.4 fL Normal 80-94 [facility] Comment on above: Order Comment: 109-1 Performed By: #### L 100.0500, L500.2500 ####[facility] [address] [place], [address] Mean corpuscular hemoglobin (MCH) determinationOrdered By: Renard Burgos on 09-11-2024 MCH (RBC) [Entitic mass] 30.0 pg Normal 27.0-32.0 [facility] Comment on above: Order Comment: 109-1 Performed By: #### L 100.0500, L500.2500 ####[facility] [address] [place], [address] Mean corpuscular hemoglobin concentration (MCHC) determinationOrdered By: Renard Burgos on 09-11-2024 MCHC (RBC) [Mass/Vol] 32.8 g/dL Normal 32-36 [facility] Comment on above: Order Comment: 109-1 Performed By: #### L 100.0500, L500.2500 ####[facility] [address], [address] Mean platelet volume determi nationOrdered By: Renard Burgos on 09-11-2024 Platelet mean volume (Bld) [Entitic vol] 11.3 fL Normal 6.2-12.0 [facility] Comment on above: Order Comment: 109-1 Performed By: #### L 100.0500, L500.2500 ####[facility] [address] [place], [address] Platelet countOrdered By: Garrick Bhatt on 09-11-2024 Platelets (Bld) [#/Vol] 191 10*3/uL Normal 150-450 [facility] Comment on above: Order Comment: 109-1 Performed By: #### L 100.0500, L500.2500 ####[facility] [address] [place], [place], [address] Potassium measurement (mass/ volume)Ordered By: Renard Burgos on 09-11-2024 Potassium (Unsp spec) [Mass/Vol] 3.8 mmol/L 3.3-5.1 [facility] Serum creatinine measurement (mass/volume)Ordered By: Renard Burgos on 09-11-2024 Creatinine [Mass/Vol] 0.58 mg/dL Low 0.70-1.20 [facility] Serum glucose measurement (m ass/volume)Ordered By: Renard Burgos on 09-11-2024 Glucose [Mass/Vol] 113 mg/dL High 70-99 [facility] Serum or plasma calcium gordy urement (mass/volume)Ordered By: Renard Burgos on 09-11-2024 Calcium [Mass/Vol] 8.7 mg/dL 7.6-11.0 [facility] Serum or plasma urea nitroge n measurement (mass/volume)Ordered By: Renard Burgos on 09-11-2024 Urea nitrogen [Mass/Vol] 13 mg/dL 4-19 [facility] Sodium levelOrdered By: Lamine Burgos on 09-11-2024 Sodium [Moles/Vol] 141 mmol/L 133-145 [facility] White blood cell (WBC) count Ordered By: Renard Burgos on 09-11-2024 WBC (Bld) [#/Vol] 7.6 10*3/uL Normal 4.4-11.0 [facility] Comment on above: Order Comment: 109-1 Performed By: #### L 100.0500, L500.2500 ####[facility] [address] [place], [place], [id number] Absolute lymphocyte countOrd ered By: Renard Burgos on 09-09-2024 Lymphocytes Auto (Unsp spec) [#/Vol] 2.24 10*3/uL 0.83-4.51 [facility] Absolute neutrophil countOrd ered By: Renard Burgos on 09-09-2024 Neutrophils (Bld) [#/Vol] 8.7 10*3/uL High 2.0-7.7 [facility] Automated lymphocyte count a s percentage of total leukocytesOrdered By: Renard Hensleyrustam on 09-09-2024 Lymphocytes/100 WBC Auto (Unsp spec) 19.1 % 19-41 [facility] Basophil percentageOrdered B y: Renard Burgos on 09-09-2024 Basophils/100 WBC (Bld) 0.4 % 0-1 [facility] CBC W/Diff, Automatedon 08-29 Absolute Lymph 2.24 X10 3/uL Normal 0.83-4.51 [facility] Comment on above: Order Comment: 109-1 Performed By: #### L 100.0100 ####[facility] [address] [place], [address] Absolute Neut 8.7 X10 3/uL High 2.0-7.7 [facility] Comment on above: Order Comment: 109-1 Performed By: #### L 100.0100 ####[facility] [address] [place], [address] Basophils/100 WBC (Bld) 0.4 % Normal 0-1 [facility] Comment on above: Order Comment: 109-1 Performed By: #### L 100.0100 ####[facility] [address] [place], [address] Eosinophils/100 WBC (Bld) 0.5 % Normal 0-5 [facility] Comment on above: Order Comment: 109-1 Performed By: #### L 100.0100 ####[facility] [address] [place], [address] Erythrocyte distribution width (RBC) [Ratio] 13.0 % Normal 11.6-14.6 [facility] Comment on above: Order Comment: 109-1 Performed By: #### L 100.0100 ####[facility] [address] [place], [address] Hematocrit (Bld) [Volume fraction] 44.7 % Normal 40-54 [facility] Comment on above: Order Comment: 109-1 Performed By: #### L 100.0100 ####[facility] [address] [place], [address] Hemoglobin (Bld) [Mass/Vol] 14.6 g/dL Normal 13.0-16.5 [facility] Comment on above: Order Comment: 109-1 Performed By: #### L 100.0100 ####[facility] [address] [place], [address] IG% 0.300 Normal 0.0-0.9 [facility] Comment on above: Order Comment: 109-1 Result Comment: IG% - Immature Granulocytes (promyelocytes, myelocytes andmetamyelocytes) > 1% indicates that a LEFT SHIFT is Present. Performed By: #### L 100.0100 ####[facility] [address] [place], [address] Lymphocytes/100 WBC (Bld) 19.1 % Normal 19-41 [facility] Comment on above: Order Comment: 109-1 Performed By: #### L 100.0100 ####[facility] [address] [place], [address] MCH (RBC) [Entitic mass] 30.1 pg Normal 27.0-32.0 [facility] Comment on above: Order Comment: 109-1 Performed By: #### L 100.0100 ####[facility] [address] [place], [address] MCHC (RBC) [Mass/Vol] 32.7 g/dL Normal 32-36 [facility] Comment on above: Order Comment: 109-1 Performed By: #### L 100.0100 ####[facility] [address] [place], [address] MCV (RBC) [Entitic vol] 92.2 fL Normal 80-94 [facility] Comment on above: Order Comment: 109-1 Performed By: #### L 100.0100 ####[facility] [address] [place], [address] Monocytes/100 WBC (Bld) 5.1 % Normal 0-10 [facility] Comment on above: Order Comment: 109-1 Performed By: #### L 100.0100 ####[facility] [address] [place], [address] Neutrophils/100 WBC (Bld) 74.6 % High 47-70 [facility] Comment on above: Order Comment: 109-1 Performed By: #### L 100.0100 ####[facility] [address] [place], [address] Nucleated RBC (Bld) [#/Vol] 0 10*3/uL Normal 0-5 [facility] Comment on above: Order Comment: 109-1 Performed By: #### L 100.0100 ####[facility] [address] [place], [address] Platelet mean volume (Bld) [Entitic vol] 11.6 fL Normal 6.2-12.0 [facility] Comment on above: Order Comment: 109-1 Performed By: #### L 100.0100 ####[facility] [address] [place], [address] Platelets (Bld) [#/Vol] 189 10*3/uL Normal 150-450 [facility] Comment on above: Order Comment: 109-1 Performed By: #### L 100.0100 ####[facility] [address] [place], [address] RBC (Bld) [#/Vol] 4.85 10*6/uL Normal 4.6-6.2 [facility] Comment on above: Order Comment: 109-1 Performed By: #### L 100.0100 ####[facility] [address] [place], [address] RDW SD 43.8 fl Normal 35.1-43.9 [facility] Comment on above: Order Comment: 109-1 Performed By: #### L 100.0100 ####[facility] [address] [place], [address] WBC (Bld) [#/Vol] 11.7 10*3/uL High 4.4-11.0 [facility] Comment on above: Order Comment: 109-1 Performed By: #### L 100.0100 ####[facility] [address] [facility] [place], [address] Eosinophil percentageOrdered By: Renard Burgos on 09-09-2024 Eosinophils/100 WBC (Bld) 0.5 % 0-5 [facility] Erythrocyte distribution wid th ratioOrdered By: Renard Burgos on 09-09-2024 Erythrocyte distribution width (RBC) [Ratio] 13.0 % 11.6-14.6 [facility] Erythrocyte distribution wid th standard deviationOrdered By: Renard Burgos on 09-09-2024 Erythrocyte distribution width (RBC) [Ratio] 43.8 fl 35.1-43.9 [facility] Hematocrit Auto (Bld) [Volum e fraction]Ordered By: Renard Burgos on 09-09-2024 Hematocrit (Bld) [Volume fraction] 44.7 % 40-54 [facility] Hemoglobin measurementOrdere d By: Renard Burgos on 09-09-2024 Hemoglobin (Bld) [Mass/Vol] 14.6 g/dL 13.0-16.5 [facility] Immature granulocytes/100 WB C Auto (Bld)Ordered By: Renard Burgos on 09-09-2024 Immature granulocytes/100 WBC (Bld) 0.300 % 0.0-0.9 [facility] Comment on above: IG% - Immature Granu locytes (promyelocytes, myelocytes and metamyelocytes) > 1% indicates that a LEFT SHIFT is Present. MCV (mean corpuscular volume ) determinationOrdered By: Renard Burgos on 09-09-2024 MCV (RBC) [Entitic vol] 92.2 fL 80-94 [facility] Mean corpuscular hemoglobin (MCH) determinationOrdered By: Renard Burgos on 09-09-2024 MCH (RBC) [Entitic mass] 30.1 pg 27.0-32.0 [facility] Mean corpuscular hemoglobin concentration (MCHC) determinationOrdered By: Renard Burgos on 09-09-2024 MCHC (RBC) [Mass/Vol] 32.7 g/dL 32-36 [facility] Mean platelet volume determi nationOrdered By: Renard Burgos on 09-09-2024 Platelet mean volume (Bld) [Entitic vol] 11.6 fL 6.2-12.0 [facility] Monocyte percentageOrdered B y: Renard Burgos on 09-09-2024 Monocytes/100 WBC (Bld) 5.1 % 0-10 [facility] Neutrophil percentageOrdered By: Renard Burgos on 09-09-2024 Neutrophils/100 WBC (Bld) 74.6 % High 47-70 [facility] Nucleated red blood cell per centageOrdered By: Renard Burgos on 09-09-2024 Nucleated RBC/100 WBC (Bld) [Ratio] 0 % 0-5 [facility] Platelet countOrdered By: Garrick Bhatt on 09-09-2024 Platelets (Bld) [#/Vol] 189 10*3/uL 150-450 [facility] RBC Auto (Bld) [#/Vol]Ordere d By: Renard Burgos on 09-09-2024 RBC (Bld) [#/Vol] 4.85 10*6/uL 4.6-6.2 [facility] White blood cell (WBC) count Ordered By: Renard Burgos on 09-09-2024 WBC (Bld) [#/Vol] 11.7 10*3/uL High 4.4-11.0 [facility] Absolute lymphocyte countOrd ered By: Renard Burgos on 09-02-2024 Lymphocytes Auto (Unsp spec) [#/Vol] 2.07 10*3/uL 0.83-4.51 [facility] Absolute neutrophil countOrd ered By: Renard Burgos on 09-02-2024 Neutrophils (Bld) [#/Vol] 5.8 10*3/uL 2.0-7.7 [facility] Automated lymphocyte count a s percentage of total leukocytesOrdered By: Renard Burgos on 09-02-2024 Lymphocytes/100 WBC Auto (Unsp spec) 24.4 % 19-41 [facility] Basophil percentageOrdered B y: Renard Burgos on 09-02-2024 Basophils/100 WBC (Bld) 0.6 % 0-1 [facility] CBC W/Diff, Automatedon -2024 Absolute Lymph 2.07 X10 3/uL Normal 0.83-4.51 [facility] Comment on above: Order Comment: 109 Performed By: #### L 100.0100 ####[facility] [address] [place], [address] Absolute Neut 5.8 X10 3/uL Normal 2.0-7.7 [facility] Comment on above: Order Comment: 109 Performed By: #### L 100.0100 ####[facility] [address] [place], [address] Basophils/100 WBC (Bld) 0.6 % Normal 0-1 [facility] Comment on above: Order Comment: 109 Performed By: #### L 100.0100 ####[facility] [address] [place], [address] Eosinophils/100 WBC (Bld) 0.7 % Normal 0-5 [facility] Comment on above: Order Comment: 109 Performed By: #### L 100.0100 ####[facility] [address] [place], [address] Erythrocyte distribution width (RBC) [Ratio] 12.8 % Normal 11.6-14.6 [facility] Comment on above: Order Comment: 109 Performed By: #### L 100.0100 ####[facility] [address] [place], [address] Hematocrit (Bld) [Volume fraction] 44.5 % Normal 40-54 [facility] Comment on above: Order Comment: 109 Performed By: #### L 100.0100 ####[facility] [address] [place], [address] Hemoglobin (Bld) [Mass/Vol] 14.9 g/dL Normal 13.0-16.5 [facility] Comment on above: Order Comment: 109 Performed By: #### L 100.0100 ####[facility] [address] [place], [address] IG% 0.400 Normal 0.0-0.9 [facility] Comment on above: Order Comment: 109 Result Comment: IG% - Immature Granulocytes (promyelocytes, myelocytes andmetamyelocytes) > 1% indicates that a LEFT SHIFT is Present. Performed By: #### L 100.0100 ####[facility] [address] [place], [address] Lymphocytes/100 WBC (Bld) 24.4 % Normal 19-41 [facility] Comment on above: Order Comment: 109 Performed By: #### L 100.0100 ####[facility] [address] [place], [address] MCH (RBC) [Entitic mass] 29.9 pg Normal 27.0-32.0 [facility] Comment on above: Order Comment: 109 Performed By: #### L 100.0100 ####[facility] [address] [place], [address] MCHC (RBC) [Mass/Vol] 33.5 g/dL Normal 32-36 [facility] Comment on above: Order Comment: 109 Performed By: #### L 100.0100 ####[facility] [address] [place], [address] MCV (RBC) [Entitic vol] 89.4 fL Normal 80-94 [facility] Comment on above: Order Comment: 109 Performed By: #### L 100.0100 ####[facility] [address] [place], [address] Monocytes/100 WBC (Bld) 5.4 % Normal 0-10 [facility] Comment on above: Order Comment: 109 Performed By: #### L 100.0100 ####[facility] [address] [place], [address] Neutrophils/100 WBC (Bld) 68.5 % Normal 47-70 [facility] Comment on above: Order Comment: 109 Performed By: #### L 100.0100 ####[facility] [address] [place], [address] Nucleated RBC (Bld) [#/Vol] 0 10*3/uL Normal 0-5 [facility] Comment on above: Order Comment: 109 Performed By: #### L 100.0100 ####[facility] [address] [place], [address] Platelet mean volume (Bld) [Entitic vol] 10.7 fL Normal 6.2-12.0 [facility] Comment on above: Order Comment: 109 Performed By: #### L 100.0100 ####[facility] [address] [place], [address] Platelets (Bld) [#/Vol] 189 10*3/uL Normal 150-450 [facility] Comment on above: Order Comment: 109 Performed By: #### L 100.0100 ####[facility] [address] [place], [address] RBC (Bld) [#/Vol] 4.98 10*6/uL Normal 4.6-6.2 [facility] Comment on above: Order Comment: 109 Performed By: #### L 100.0100 ####[facility] [address] [place], [address] RDW SD 41.7 fl Normal 35.1-43.9 [facility] Comment on above: Order Comment: 109 Performed By: #### L 100.0100 ####[facility] [address] [place], [address] WBC (Bld) [#/Vol] 8.5 10*3/uL Normal 4.4-11.0 [facility] Comment on above: Order Comment: 109 Performed By: #### L 100.0100 ####[facility] [address] [place], [place], [phone] Eosinophil percentageOrdered By: Renard Burgos on 09-02-2024 Eosinophils/100 WBC (Bld) 0.7 % 0-5 [facility] Erythrocyte distribution wid th ratioOrdered By: Renard Burgos on 09-02-2024 Erythrocyte distribution width (RBC) [Ratio] 12.8 % 11.6-14.6 [facility] Erythrocyte distribution wid th standard deviationOrdered By: Renard Burgos on 09-02-2024 Erythrocyte distribution width (RBC) [Ratio] 41.7 fl 35.1-43.9 [facility] Hematocrit Auto (Bld) [Volum e fraction]Ordered By: Renard Burgos on 09-02-2024 Hematocrit (Bld) [Volume fraction] 44.5 % 40-54 [facility] Hemoglobin measurementOrdere d By: Renard Burgos on 09-02-2024 Hemoglobin (Bld) [Mass/Vol] 14.9 g/dL 13.0-16.5 [facility] Immature granulocytes/100 WB C Auto (Bld)Ordered By: Renard Burgos on 09-02-2024 Immature granulocytes/100 WBC (Bld) 0.400 % 0.0-0.9 [facility] Comment on above: IG% - Immature Granu locytes (promyelocytes, myelocytes and metamyelocytes) > 1% indicates that a LEFT SHIFT is Present. MCV (mean corpuscular volume ) determinationOrdered By: Renard Burgos on 09-02-2024 MCV (RBC) [Entitic vol] 89.4 fL 80-94 [facility] Mean corpuscular hemoglobin (MCH) determinationOrdered By: Renard Burgos on 09-02-2024 MCH (RBC) [Entitic mass] 29.9 pg 27.0-32.0 [facility] Mean corpuscular hemoglobin concentration (MCHC) determinationOrdered By: Renard Burgos on 09-02-2024 MCHC (RBC) [Mass/Vol] 33.5 g/dL 32-36 [facility] Mean platelet volume determi nationOrdered By: Renard Burgos on 09-02-2024 Platelet mean volume (Bld) [Entitic vol] 10.7 fL 6.2-12.0 [facility] Monocyte percentageOrdered B y: Renard Burgos on 09-02-2024 Monocytes/100 WBC (Bld) 5.4 % 0-10 [facility] Neutrophil percentageOrdered By: Renard Burgos on 09-02-2024 Neutrophils/100 WBC (Bld) 68.5 % 47-70 [facility] Nucleated red blood cell per centageOrdered By: Renard Burgos on 09-02-2024 Nucleated RBC/100 WBC (Bld) [Ratio] 0 % 0-5 [facility] Platelet countOrdered By: Garrick Bhatt on 09-02-2024 Platelets (Bld) [#/Vol] 189 10*3/uL 150-450 [facility] RBC Auto (Bld) [#/Vol]Ordere d By: Renard Burgos on 09-02-2024 RBC (Bld) [#/Vol] 4.98 10*6/uL 4.6-6.2 [facility] White blood cell (WBC) count Ordered By: Renard Burgos on 09-02-2024 WBC (Bld) [#/Vol] 8.5 10*3/uL 4.4-11.0 [facility] Absolute lymphocyte countOrd ered By: Renard Burgos on 08-26-2024 Lymphocytes Auto (Unsp spec) [#/Vol] 2.17 10*3/uL 0.83-4.51 [facility] Absolute neutrophil countOrd ered By: Renard Burgos on 08-26-2024 Neutrophils (Bld) [#/Vol] 5.7 10*3/uL 2.0-7.7 [facility] Automated lymphocyte count a s percentage of total leukocytesOrdered By: Renard Burgos on 08-26-2024 Lymphocytes/100 WBC Auto (Unsp spec) 25.1 % 19-41 [facility] Basophil percentageOrdered B y: Renard Burgos on 08-26-2024 Basophils/100 WBC (Bld) 0.6 % 0-1 [facility] CBC W/Diff, Automatedon 07-31 Absolute Lymph 2.17 X10 3/uL Normal 0.83-4.51 [facility] Comment on above: Order Comment: 109-1 Performed By: #### L 100.0100 ####[facility] [address] [place], [address] Absolute Neut 5.7 X10 3/uL Normal 2.0-7.7 [facility] Comment on above: Order Comment: 109-1 Performed By: #### L 100.0100 ####[facility] [address] [place], [address] Basophils/100 WBC (Bld) 0.6 % Normal 0-1 [facility] Comment on above: Order Comment: 109-1 Performed By: #### L 100.0100 ####[facility] [address] [place], [address] Eosinophils/100 WBC (Bld) 0.8 % Normal 0-5 [facility] Comment on above: Order Comment: 109-1 Performed By: #### L 100.0100 ####[facility] [address] [place], [address] Erythrocyte distribution width (RBC) [Ratio] 12.7 % Normal 11.6-14.6 [facility] Comment on above: Order Comment: 109-1 Performed By: #### L 100.0100 ####[facility] [address] [place], [address] Hematocrit (Bld) [Volume fraction] 41.8 % Normal 40-54 [facility] Comment on above: Order Comment: 109-1 Performed By: #### L 100.0100 ####[facility] [address] [place], [address] Hemoglobin (Bld) [Mass/Vol] 13.8 g/dL Normal 13.0-16.5 [facility] Comment on above: Order Comment: 109-1 Performed By: #### L 100.0100 ####[facility] [address] [place], [address] IG% 0.200 Normal 0.0-0.9 [facility] Comment on above: Order Comment: 109-1 Result Comment: IG% - Immature Granulocytes (promyelocytes, myelocytes andmetamyelocytes) > 1% indicates that a LEFT SHIFT is Present. Performed By: #### L 100.0100 ####[facility] [address] [place], [address] Lymphocytes/100 WBC (Bld) 25.1 % Normal 19-41 [facility] Comment on above: Order Comment: 109-1 Performed By: #### L 100.0100 ####[facility] [address] [place], [address] MCH (RBC) [Entitic mass] 29.7 pg Normal 27.0-32.0 [facility] Comment on above: Order Comment: 109-1 Performed By: #### L 100.0100 ####[facility] [address] [place], [address] MCHC (RBC) [Mass/Vol] 33.0 g/dL Normal 32-36 [facility] Comment on above: Order Comment: 109-1 Performed By: #### L 100.0100 ####[facility] [address] [place], [address] MCV (RBC) [Entitic vol] 90.1 fL Normal 80-94 [facility] Comment on above: Order Comment: 109-1 Performed By: #### L 100.0100 ####[facility] [address] [place], [address] Monocytes/100 WBC (Bld) 7.4 % Normal 0-10 [facility] Comment on above: Order Comment: 109-1 Performed By: #### L 100.0100 ####[facility] [address] [place], [address] Neutrophils/100 WBC (Bld) 65.9 % Normal 47-70 [facility] Comment on above: Order Comment: 109-1 Performed By: #### L 100.0100 ####[facility] [address] [place], [address] Nucleated RBC (Bld) [#/Vol] 0 10*3/uL Normal 0-5 [facility] Comment on above: Order Comment: 109-1 Performed By: #### L 100.0100 ####[facility] [address] [place], [address] Platelet mean volume (Bld) [Entitic vol] 11.3 fL Normal 6.2-12.0 [facility] Comment on above: Order Comment: 109-1 Performed By: #### L 100.0100 ####[facility] [address] [place], [address] Platelets (Bld) [#/Vol] 196 10*3/uL Normal 150-450 [facility] Comment on above: Order Comment: 109-1 Performed By: #### L 100.0100 ####[facility] [address] [place], [address] RBC (Bld) [#/Vol] 4.64 10*6/uL Normal 4.6-6.2 [facility] Comment on above: Order Comment: 109-1 Performed By: #### L 100.0100 ####[facility] [address] [place], [address] RDW SD 41.3 fl Normal 35.1-43.9 [facility] Comment on above: Order Comment: 109-1 Performed By: #### L 100.0100 ####[facility] [address] [place], [address] WBC (Bld) [#/Vol] 8.6 10*3/uL Normal 4.4-11.0 [facility] Comment on above: Order Comment: 109-1 Performed By: #### L 100.0100 ####[facility] [address] [place], [address] Eosinophil percentageOrdered By: Renard Burgos on 08-26-2024 Eosinophils/100 WBC (Bld) 0.8 % 0-5 [facility] Erythrocyte distribution wid th ratioOrdered By: Renard Burgos on 08-26-2024 Erythrocyte distribution width (RBC) [Ratio] 12.7 % 11.6-14.6 [facility] Erythrocyte distribution wid th standard deviationOrdered By: Renard Burgos on 08-26-2024 Erythrocyte distribution width (RBC) [Ratio] 41.3 fl 35.1-43.9 [facility] Hematocrit Auto (Bld) [Volum e fraction]Ordered By: Renard Burgos on 08-26-2024 Hematocrit (Bld) [Volume fraction] 41.8 % 40-54 [facility] Hemoglobin measurementOrdere d By: Renard Burgos on 08-26-2024 Hemoglobin (Bld) [Mass/Vol] 13.8 g/dL 13.0-16.5 [facility] Immature granulocytes/100 WB C Auto (Bld)Ordered By: Renard Burgos on 08-26-2024 Immature granulocytes/100 WBC (Bld) 0.200 % 0.0-0.9 [facility] Comment on above: IG% - Immature Granu locytes (promyelocytes, myelocytes and metamyelocytes) > 1% indicates that a LEFT SHIFT is Present. MCV (mean corpuscular volume ) determinationOrdered By: Renard Burgos on 08-26-2024 MCV (RBC) [Entitic vol] 90.1 fL 80-94 [facility] Mean corpuscular hemoglobin (MCH) determinationOrdered By: Renard Burgos on 08-26-2024 MCH (RBC) [Entitic mass] 29.7 pg 27.0-32.0 [facility] Mean corpuscular hemoglobin concentration (MCHC) determinationOrdered By: Renard Burgos on 08-26-2024 MCHC (RBC) [Mass/Vol] 33.0 g/dL 32-36 [facility] Mean platelet volume determi nationOrdered By: Renard Burgos on 08-26-2024 Platelet mean volume (Bld) [Entitic vol] 11.3 fL 6.2-12.0 [facility] Monocyte percentageOrdered B y: Renard Burgos on 08-26-2024 Monocytes/100 WBC (Bld) 7.4 % 0-10 [facility] Neutrophil percentageOrdered By: Renard Burgos on 08-26-2024 Neutrophils/100 WBC (Bld) 65.9 % 47-70 [facility] Nucleated red blood cell per centageOrdered By: Renard Burgos on 08-26-2024 Nucleated RBC/100 WBC (Bld) [Ratio] 0 % 0-5 [facility] Platelet countOrdered By: Garrick Bhatt on 08-26-2024 Platelets (Bld) [#/Vol] 196 10*3/uL 150-450 [facility] RBC Auto (Bld) [#/Vol]Ordere d By: Renard Burgos on 08-26-2024 RBC (Bld) [#/Vol] 4.64 10*6/uL 4.6-6.2 [facility] White blood cell (WBC) count Ordered By: Renard Burgos on 08-26-2024 WBC (Bld) [#/Vol] 8.6 10*3/uL 4.4-11.0 [facility] Anion gap in Serum or Plasma Ordered By: Renard Burgos on 08-23-2024 Anion gap [Moles/Vol] 10 mmol/L 5-15 [facility] BUN/creatinine ratioOrdered By: Renard Burgos on 08-23-2024 Urea nitrogen/Creatinine [Mass ratio] 21.4 mg/mg High 10-20 [facility] Bilirubin, totalOrdered By: Renard Burgos on 08-23-2024 Bilirubin [Mass/Vol] 0.35 mg/dL 0.00-1.30 [facility] CBC-Complete Blood Cnt No Di ffon 08-23-2024 Erythrocyte distribution width (RBC) [Ratio] 12.7 % Normal 11.6-14.6 [facility] Comment on above: Order Comment: 109.1 Performed By: #### L 500.4100, L100.0500, L500.4050 ####[facility] [address] [place], [address] Hematocrit (Bld) [Volume fraction] 42.2 % Normal 40-54 [facility] Comment on above: Order Comment: 109.1 Performed By: #### L 500.4100, L100.0500, L500.4050 ####[facility] [address] [place], [address] Hemoglobin (Bld) [Mass/Vol] 14.0 g/dL Normal 13.0-16.5 [facility] Comment on above: Order Comment: 109.1 Performed By: #### L 500.4100, L100.0500, L500.4050 ####[facility] [address] [place], [address] MCH (RBC) [Entitic mass] 30.0 pg Normal 27.0-32.0 [facility] Comment on above: Order Comment: 109.1 Performed By: #### L 500.4100, L100.0500, L500.4050 ####[facility] [address] [place], [address] MCHC (RBC) [Mass/Vol] 33.2 g/dL Normal 32-36 [facility] Comment on above: Order Comment: 109.1 Performed By: #### L 500.4100, L100.0500, L500.4050 ####[facility] [address] [place], [address] MCV (RBC) [Entitic vol] 90.6 fL Normal 80-94 [facility] Comment on above: Order Comment: 109.1 Performed By: #### L 500.4100, L100.0500, L500.4050 ####[facility] [address] [place], [address] Platelet mean volume (Bld) [Entitic vol] 11.3 fL Normal 6.2-12.0 [facility] Comment on above: Order Comment: 109.1 Performed By: #### L 500.4100, L100.0500, L500.4050 ####[facility] [address] [place], [address] Platelets (Bld) [#/Vol] 184 10*3/uL Normal 150-450 [facility] Comment on above: Order Comment: 109.1 Performed By: #### L 500.4100, L100.0500, L500.4050 ####[facility] [address] [place], [address] RBC (Bld) [#/Vol] 4.66 10*6/uL Normal 4.6-6.2 [facility] Comment on above: Order Comment: 109.1 Performed By: #### L 500.4100, L100.0500, L500.4050 ####[facility] [address] [place], [address] RDW SD 41.8 fl Normal 35.1-43.9 [facility] Comment on above: Order Comment: 109.1 Performed By: #### L 500.4100, L100.0500, L500.4050 ####[facility] [address] [place], [address] WBC (Bld) [#/Vol] 8.6 10*3/uL Normal 4.4-11.0 [facility] Comment on above: Order Comment: 109.1 Performed By: #### L 500.4100, L100.0500, L500.4050 ####[facility] [address] [place], [address] Calculated very low density lipoprotein (VLDL) cholesterol measurementOrdered By: Renard Burgos on 08-23-2024 Calculated very low density lipoprotein (VLDL) cholesterol measurement 40 mg/dL 5-40 [facility] Carbon dioxide, total [Moles /volume] in Central venous bloodOrdered By: Renard Burgos on 08-23-2024 CO2 [Moles/Vol] 24.9 mmol/L 21.0-32.0 [facility] Chloride assayOrdered By: Garrick Bhatt on 08-23-2024 Chloride [Moles/Vol] 106 mmol/L 98-108 [facility] Comprehensive Metabolic Prof ilon 08-23-2024 Albumin [Mass/Vol] 3.4 g/dL Normal 3.4-4.8 [facility] Comment on above: Order Comment: 109.1 Performed By: #### L 500.4100, L100.0500, L500.4050 ####[facility] [address] [place], [address] Albumin/Globulin [Mass ratio] 1.4 {ratio} Normal 0.9-2.4 [facility] Comment on above: Order Comment: 109.1 Performed By: #### L 500.4100, L100.0500, L500.4050 ####[facility] [address] [place], [address] ALK PHOS 101 U/L Normal 40-129 [facility] Comment on above: Order Comment: 109.1 Performed By: #### L 500.4100, L100.0500, L500.4050 ####[facility] [address] [place], [address] ALT [Catalytic activity/Vol] 13 U/L Normal <=46 [facility] Comment on above: Order Comment: 109.1 Performed By: #### L 500.4100, L100.0500, L500.4050 ####[facility] [address] [place], [address] AST [Catalytic activity/Vol] 17 U/L Normal <=37 [facility] Comment on above: Order Comment: 109.1 Performed By: #### L 500.4100, L100.0500, L500.4050 ####[facility] [address] [place], [address] Bilirubin [Mass/Vol] 0.35 mg/dL Normal 0.00-1.30 [facility] Comment on above: Order Comment: 109.1 Performed By: #### L 500.4100, L100.0500, L500.4050 ####[facility] [address] [place], [address] BUN/CRE 21.4 RATIO High 10-20 [facility] Comment on above: Order Comment: 109.1 Performed By: #### L 500.4100, L100.0500, L500.4050 ####[facility] [address] [place], [address] Calcium [Mass/Vol] 8.2 mg/dL Normal 7.6-11.0 [facility] Comment on above: Order Comment: 109.1 Performed By: #### L 500.4100, L100.0500, L500.4050 ####[facility] [address] [place], [address] Chloride [Moles/Vol] 106 mmol/L Normal 98-108 [facility] Comment on above: Order Comment: 109.1 Performed By: #### L 500.4100, L100.0500, L500.4050 ####[facility] [address] [place], [address] CO2 [Moles/Vol] 24.9 mmol/L Normal 21.0-32.0 [facility] Comment on above: Order Comment: 109.1 Performed By: #### L 500.4100, L100.0500, L500.4050 ####[facility] [address] [place], [address] Creatinine [Mass/Vol] 0.63 mg/dL Low 0.70-1.20 [facility] Comment on above: Order Comment: 109.1 Performed By: #### L 500.4100, L100.0500, L500.4050 ####[facility] [address] [place], [address] GAP 10 Normal 5-15 [facility] Comment on above: Order Comment: 109.1 Performed By: #### L 500.4100, L100.0500, L500.4050 ####[facility] [address] [place], [address] GFR/1.73 sq M.predicted among non-blacks MDRD (S/P/Bld) [Vol rate/Area] 104 mL/min/{1.73_m2} Normal >60 [facility] Comment on above: Order Comment: 109.1 Result Comment: mL/m in/1.73m2 CKD-EPI Creatinine Equation (2020) Performed By: #### L 500.4100, L100.0500, L500.4050 ####[facility] [address] [place], [address] Globulin (S) [Mass/Vol] 2.3 g/dL Normal 2.2-4.2 [facility] Comment on above: Order Comment: 109.1 Performed By: #### L 500.4100, L100.0500, L500.4050 ####[facility] [address] [place], [address] Glucose [Mass/Vol] 116 mg/dL High 70-99 [facility] Comment on above: Order Comment: 109.1 Performed By: #### L 500.4100, L100.0500, L500.4050 ####[facility] [address] [place], [address] Potassium [Moles/Vol] 3.8 mmol/L Normal 3.3-5.1 [facility] Comment on above: Order Comment: 109.1 Performed By: #### L 500.4100, L100.0500, L500.4050 ####[facility] [address] [place], [address] Sodium [Moles/Vol] 141 mmol/L Normal 133-145 [facility] Comment on above: Order Comment: 109.1 Performed By: #### L 500.4100, L100.0500, L500.4050 ####[facility] [address] [place], [address] T PROT 5.7 g/dL Low 5.9-8.4 [facility] Comment on above: Order Comment: 109.1 Performed By: #### L 500.4100, L100.0500, L500.4050 ####[facility] [address] [place], [address] Urea nitrogen [Mass/Vol] 14 mg/dL Normal 4-19 [facility] Comment on above: Order Comment: 109.1 Performed By: #### L 500.4100, L100.0500, L500.4050 ####[facility] [address] [place], [address] Erythrocyte distribution wid th ratioOrdered By: Renard Burgos on 08-23-2024 Erythrocyte distribution width (RBC) [Ratio] 12.7 % 11.6-14.6 [facility] Erythrocyte distribution wid th standard deviationOrdered By: Renard Burgos on 08-23-2024 Erythrocyte distribution width (RBC) [Ratio] 41.8 fl 35.1-43.9 [facility] Glomerular filtration rate ( GFR) estimation/1.73 sq m using serum, plasma, or whole bOrdered By: Renard Burgos on 08-23-2024 GFR/1.73 sq M.predicted among non-blacks MDRD (S/P/Bld) [Vol rate/Area] 104 mL/min/{1.73_m2} >60 [facility] Comment on above: mL/min/1.73m2 CKD-EP I Creatinine Equation (2020) Hematocrit Auto (Bld) [Volum e fraction]Ordered By: Renard Burgos on 08-23-2024 Hematocrit (Bld) [Volume fraction] 42.2 % 40-54 [facility] Hemoglobin measurementOrdere d By: Renard Burgos on 08-23-2024 Hemoglobin (Bld) [Mass/Vol] 14.0 g/dL 13.0-16.5 [facility] LDL calc ser/plasOrdered By: Renard Burgos on 08-23-2024 Cholesterol in LDL [Mass/Vol] 62 mg/dL [facility] Comment on above: Enguqmakis=031-986 m g/dL & Higher Zcrl=721 mg/dL or greater Laboratory - Chemistry and C hemistry - challengeOrdered By: Renard Burgos on 08-23-2024 AST [Catalytic activity/Vol] 17 U/L <38 [facility] Lipid Profileon 08-23-2024 CHOL:HDL 5.32 Normal [facility] Comment on above: Order Comment: 109.1 Performed By: #### L 500.4100, L100.0500, L500.4050 ####[facility] [address] [place], [place], [id number] Cholesterol [Mass/Vol] 125 mg/dL Normal <=200 [facility] Comment on above: Order Comment: 109.1 Result Comment: Chol esterol level, Desirable <200 mg/dLBorderline high cholesterol 200-239 mg/dLHigh cholesterol >=240 mg/dLRecommendations of the NCEP Adult Treatment Panel for thefollowing risk-cutoff thresholds for the [place] Americanpulation. Performed By: #### L 500.4100, L100.0500, L500.4050 ####[facility] [address] [place], [address] Cholesterol in HDL [Mass/Vol] 24 mg/dL Low [facility] Comment on above: Order Comment: 109.1 Result Comment: Lucy onal Cholesterol Education Program (NCEP) guidelines:<40 mg/dL: Low HDL-cholesterol (major risk factor for CHD)>= 60 mg/dL: High HDL-cholesterol (negative risk factor forCHD)HDL-cholesterol is affected by a number of factors, e.g.smoking, exercise, hormones, sex and age. Performed By: #### L 500.4100, L100.0500, L500.4050 ####[facility] [address] [place], [address] Cholesterol in LDL [Mass/Vol] 62 mg/dL Normal [facility] Comment on above: Order Comment: 109.1 Result Comment: Bord zvpyzd=896-563 mg/dL Higher Xytb=685 mg/dL or greater Performed By: #### L 500.4100, L100.0500, L500.4050 ####[facility] [address] [place], [address] Cholesterol in VLDL [Mass/Vol] 40 mg/dL Normal 5-40 [facility] Comment on above: Order Comment: 109.1 Performed By: #### L 500.4100, L100.0500, L500.4050 ####[facility] [address] [place], [address] Triglyceride [Mass/Vol] 198 mg/dL Normal [facility] Comment on above: Order Comment: 109.1 Result Comment: The drugs N-Acetylcysteine and Metamizole may falselydepress this assay.Normal range: <150 mg/dLBorderline High: 150-199 mg/dLHigh: 200-499 mg/dLVery High: >500 mg/dL Performed By: #### L 500.4100, L100.0500, L500.4050 ####[facility] [address] [place], [address] MCV (mean corpuscular volume ) determinationOrdered By: Renard Burgos on 08-23-2024 MCV (RBC) [Entitic vol] 90.6 fL 80-94 [facility] Mean corpuscular hemoglobin (MCH) determinationOrdered By: Renard Burgos on 08-23-2024 MCH (RBC) [Entitic mass] 30.0 pg 27.0-32.0 [facility] Mean corpuscular hemoglobin concentration (MCHC) determinationOrdered By: Renard Burgos on 08-23-2024 MCHC (RBC) [Mass/Vol] 33.2 g/dL 32-36 [facility] Mean platelet volume determi nationOrdered By: Renard Burgos on 08-23-2024 Platelet mean volume (Bld) [Entitic vol] 11.3 fL 6.2-12.0 [facility] Platelet countOrdered By: Garrick Bhatt on 08-23-2024 Platelets (Bld) [#/Vol] 184 10*3/uL 150-450 [facility] Potassium measurement (mass/ volume)Ordered By: Renard Burgos on 08-23-2024 Potassium (Unsp spec) [Mass/Vol] 3.8 mmol/L 3.3-5.1 [facility] RBC Auto (Bld) [#/Vol]Ordere d By: Renard Burgos on 08-23-2024 RBC (Bld) [#/Vol] 4.66 10*6/uL 4.6-6.2 [facility] Screening total cholesterol/ high density lipoprotein (HDL) cholesterol ratioOrdered By: Renard Burgos on 08-23-2024 Cholesterol.total/Cecilia sterol in HDL [Mass ratio] 5.32 {ratio} [facility] Serum creatinine measurement (mass/volume)Ordered By: Renard Burgos on 08-23-2024 Creatinine [Mass/Vol] 0.63 mg/dL Low 0.70-1.20 [facility] Serum globulin measurementOr dered By: Renard Burgos on 08-23-2024 Globulin (S) [Mass/Vol] 2.3 g/dL 2.2-4.2 [facility] Serum glucose measurement (m ass/volume)Ordered By: Renard Burgos on 08-23-2024 Glucose [Mass/Vol] 116 mg/dL High 70-99 [facility] Serum or plasma alanine kay otransferase (ALT) measurementOrdered By: Renard Burgos on 08-23-2024 ALT [Catalytic activity/Vol] 13 U/L <47 [facility] Serum or plasma albumin gordy urement (mass/volume)Ordered By: Renard Burgos on 08-23-2024 Albumin [Mass/Vol] 3.4 g/dL 3.4-4.8 [facility] Serum or plasma albumin/glob ulin mass ratioOrdered By: Renard Burgos on 08-23-2024 Albumin/Globulin [Mass ratio] 1.4 {ratio} 0.9-2.4 [facility] Serum or plasma alkaline trace sphatase measurementOrdered By: Renard Burgos on 08-23-2024 ALP [Catalytic activity/Vol] 101 U/L 40-129 [facility] Serum or plasma calcium gordy urement (mass/volume)Ordered By: Renard Burgos on 08-23-2024 Calcium [Mass/Vol] 8.2 mg/dL 7.6-11.0 [facility] Serum or plasma cholesterol in HDL measurement (mass/volume)Ordered By: Renard Burgos on 08-23-2024 Cholesterol in HDL [Mass/Vol] 24 mg/dL Low >40 [facility] Comment on above: National Cholesterol Education Program (NCEP) guidelines:<40 mg/dL: Low HDL-cholesterol (major risk factor for CHD)>= 60 mg/dL: High HDL-cholesterol (negative risk factor for CHD)HDL-cholesterol is affected by a number of factors, e.g. smoking, exercise, hormones, sex and age. Serum or plasma cholesterol measurement (mass/volume)Ordered By: Renard Burgos on 08-23-2024 Cholesterol [Mass/Vol] 125 mg/dL <201 [facility] Comment on above: Cholesterol level, D esirable <200 mg/dLBorderline high cholesterol 200-239 mg/dLHigh cholesterol >=240 mg/dLRecommendations of the NCEP Adult Treatment Panel for the following risk-cutoff thresholds for the [place] population. Serum or plasma urea nitroge n measurement (mass/volume)Ordered By: Renard Burgos on 08-23-2024 Urea nitrogen [Mass/Vol] 14 mg/dL 4-19 [facility] Sodium levelOrdered By: Lamine Burgos on 08-23-2024 Sodium [Moles/Vol] 141 mmol/L 133-145 [facility] Total proteinOrdered By: Lyubov Burgos on 08-23-2024 Protein [Mass/Vol] 5.7 g/dL Low 5.9-8.4 [facility] Triglycerides measurementOrd ered By: Renard Burgos on 08-23-2024 Triglyceride [Mass/Vol] 198 mg/dL <199 [facility] Comment on above: The drugs N-Acetylcy steine and Metamizole may falsely depress this assay. Normal range: <150 mg/dLBorderline High: 150-199 mg/dLHigh: 200-499 mg/dLVery High: >500 mg/dL White blood cell (WBC) count Ordered By: Renard Burgos on 08-23-2024 WBC (Bld) [#/Vol] 8.6 10*3/uL 4.4-11.0 [facility] Absolute lymphocyte countOrd ered By: Renard Burgos on 08-19-2024 Lymphocytes Auto (Unsp spec) [#/Vol] 1.97 10*3/uL 0.83-4.51 [facility] Absolute neutrophil countOrd ered By: Renard Burgos on 08-19-2024 Neutrophils (Bld) [#/Vol] 5.0 10*3/uL 2.0-7.7 [facility] Automated lymphocyte count a s percentage of total leukocytesOrdered By: Renard Burgos on 08-19-2024 Lymphocytes/100 WBC Auto (Unsp spec) 25.4 % 19-41 [facility] Basophil percentageOrdered B y: Renard Burgos on 08-19-2024 Basophils/100 WBC (Bld) 0.5 % 0-1 [facility] CBC W/Diff, Automatedon 07-31 Absolute Lymph 1.97 X10 3/uL Normal 0.83-4.51 [facility] Comment on above: Order Comment: 109 Performed By: #### L 100.0100 ####[facility] [address] [place], [address] Absolute Neut 5.0 X10 3/uL Normal 2.0-7.7 [facility] Comment on above: Order Comment: 109 Performed By: #### L 100.0100 ####[facility] [address] [place], [address] Basophils/100 WBC (Bld) 0.5 % Normal 0-1 [facility] Comment on above: Order Comment: 109 Performed By: #### L 100.0100 ####[facility] [address] [place], [address] Eosinophils/100 WBC (Bld) 1.0 % Normal 0-5 [facility] Comment on above: Order Comment: 109 Performed By: #### L 100.0100 ####[facility] [address] [place], [address] Erythrocyte distribution width (RBC) [Ratio] 12.7 % Normal 11.6-14.6 [facility] Comment on above: Order Comment: 109 Performed By: #### L 100.0100 ####[facility] [address] [place], [address] Hematocrit (Bld) [Volume fraction] 41.0 % Normal 40-54 [facility] Comment on above: Order Comment: 109 Performed By: #### L 100.0100 ####[facility] [address] [place], [address] Hemoglobin (Bld) [Mass/Vol] 13.6 g/dL Normal 13.0-16.5 [facility] Comment on above: Order Comment: 109 Performed By: #### L 100.0100 ####[facility] [address] [place], [address] IG% 0.400 Normal 0.0-0.9 [facility] Comment on above: Order Comment: 109 Result Comment: IG% - Immature Granulocytes (promyelocytes, myelocytes andmetamyelocytes) > 1% indicates that a LEFT SHIFT is Present. Performed By: #### L 100.0100 ####[facility] [address] [place], [address] Lymphocytes/100 WBC (Bld) 25.4 % Normal 19-41 [facility] Comment on above: Order Comment: 109 Performed By: #### L 100.0100 ####[facility] [address] [place], [address] MCH (RBC) [Entitic mass] 30.2 pg Normal 27.0-32.0 [facility] Comment on above: Order Comment: 109 Performed By: #### L 100.0100 ####[facility] [address] [place], [address] MCHC (RBC) [Mass/Vol] 33.2 g/dL Normal 32-36 [facility] Comment on above: Order Comment: 109 Performed By: #### L 100.0100 ####[facility] [address] [place], [address] MCV (RBC) [Entitic vol] 91.1 fL Normal 80-94 [facility] Comment on above: Order Comment: 109 Performed By: #### L 100.0100 ####[facility] [address] [place], [address] Monocytes/100 WBC (Bld) 8.2 % Normal 0-10 [facility] Comment on above: Order Comment: 109 Performed By: #### L 100.0100 ####[facility] [address] [place], [address] Neutrophils/100 WBC (Bld) 64.5 % Normal 47-70 [facility] Comment on above: Order Comment: 109 Performed By: #### L 100.0100 ####[facility] [address] [place], [address] Nucleated RBC (Bld) [#/Vol] 0 10*3/uL Normal 0-5 [facility] Comment on above: Order Comment: 109 Performed By: #### L 100.0100 ####[facility] [address] [place], [address] Platelet mean volume (Bld) [Entitic vol] 11.1 fL Normal 6.2-12.0 [facility] Comment on above: Order Comment: 109 Performed By: #### L 100.0100 ####[facility] [address] [place], [address] Platelets (Bld) [#/Vol] 207 10*3/uL Normal 150-450 [facility] Comment on above: Order Comment: 109 Performed By: #### L 100.0100 ####[facility] [address] [place], [address] RBC (Bld) [#/Vol] 4.50 10*6/uL Low 4.6-6.2 [facility] Comment on above: Order Comment: 109 Performed By: #### L 100.0100 ####[facility] [address] [place], [address] RDW SD 42.0 fl Normal 35.1-43.9 [facility] Comment on above: Order Comment: 109 Performed By: #### L 100.0100 ####[facility] [address] [place], [address] WBC (Bld) [#/Vol] 7.8 10*3/uL Normal 4.4-11.0 [facility] Comment on above: Order Comment: 109 Performed By: #### L 100.0100 ####[facility] [address] [place], [address] Eosinophil percentageOrdered By: Renard Burgos on 08-19-2024 Eosinophils/100 WBC (Bld) 1.0 % 0-5 [facility] Erythrocyte distribution wid th ratioOrdered By: Renard Burgos on 08-19-2024 Erythrocyte distribution width (RBC) [Ratio] 12.7 % 11.6-14.6 [facility] Erythrocyte distribution wid th standard deviationOrdered By: Renard Burgos on 08-19-2024 Erythrocyte distribution width (RBC) [Ratio] 42.0 fl 35.1-43.9 [facility] Hematocrit Auto (Bld) [Volum e fraction]Ordered By: Renard Burgos on 08-19-2024 Hematocrit (Bld) [Volume fraction] 41.0 % 40-54 [facility] Hemoglobin measurementOrdere d By: Renard Burgos on 08-19-2024 Hemoglobin (Bld) [Mass/Vol] 13.6 g/dL 13.0-16.5 [facility] Immature granulocytes/100 WB C Auto (Bld)Ordered By: Renard Burgos on 08-19-2024 Immature granulocytes/100 WBC (Bld) 0.400 % 0.0-0.9 [facility] Comment on above: IG% - Immature Granu locytes (promyelocytes, myelocytes and metamyelocytes) > 1% indicates that a LEFT SHIFT is Present. MCV (mean corpuscular volume ) determinationOrdered By: Renard Burgos on 08-19-2024 MCV (RBC) [Entitic vol] 91.1 fL 80-94 [facility] Mean corpuscular hemoglobin (MCH) determinationOrdered By: Renard Burgos on 08-19-2024 MCH (RBC) [Entitic mass] 30.2 pg 27.0-32.0 [facility] Mean corpuscular hemoglobin concentration (MCHC) determinationOrdered By: Renard Burgos on 08-19-2024 MCHC (RBC) [Mass/Vol] 33.2 g/dL 32-36 [facility] Mean platelet volume determi nationOrdered By: Renard Burgos on 08-19-2024 Platelet mean volume (Bld) [Entitic vol] 11.1 fL 6.2-12.0 [facility] Monocyte percentageOrdered B y: Renard Burgos on 08-19-2024 Monocytes/100 WBC (Bld) 8.2 % 0-10 [facility] Neutrophil percentageOrdered By: Renard Burgos on 08-19-2024 Neutrophils/100 WBC (Bld) 64.5 % 47-70 [facility] Nucleated red blood cell per centageOrdered By: Renard Burgos on 08-19-2024 Nucleated RBC/100 WBC (Bld) [Ratio] 0 % 0-5 [facility] Platelet countOrdered By: Garrick Bhatt on 08-19-2024 Platelets (Bld) [#/Vol] 207 10*3/uL 150-450 [facility] RBC Auto (Bld) [#/Vol]Ordere d By: Renard Burgos on 08-19-2024 RBC (Bld) [#/Vol] 4.50 10*6/uL Low 4.6-6.2 [facility] White blood cell (WBC) count Ordered By: Renard Burgos on 08-19-2024 WBC (Bld) [#/Vol] 7.8 10*3/uL 4.4-11.0 [facility] Absolute lymphocyte countOrd ered By: Renard Burgos on 08-12-2024 Lymphocytes Auto (Unsp spec) [#/Vol] 2.09 10*3/uL 0.83-4.51 [facility] Absolute neutrophil countOrd ered By: Renard Burgso on 08-12-2024 Neutrophils (Bld) [#/Vol] 5.0 10*3/uL 2.0-7.7 [facility] Automated lymphocyte count a s percentage of total leukocytesOrdered By: Renard Burgos on 08-12-2024 Lymphocytes/100 WBC Auto (Unsp spec) 27.0 % 19-41 [facility] Basophil percentageOrdered B y: Renard Burgos on 08-12-2024 Basophils/100 WBC (Bld) 0.5 % 0-1 [facility] CBC W/Diff, Automatedon 07-30 Absolute Lymph 2.09 X10 3/uL Normal 0.83-4.51 [facility] Comment on above: Order Comment: 109.1 Performed By: #### L 100.0100 ####[facility] [address] [place], [place], [id number] Absolute Neut 5.0 X10 3/uL Normal 2.0-7.7 [facility] Comment on above: Order Comment: 109.1 Performed By: #### L 100.0100 ####[facility] [address] [place], [address] Basophils/100 WBC (Bld) 0.5 % Normal 0-1 [facility] Comment on above: Order Comment: 109.1 Performed By: #### L 100.0100 ####[facility] [address] [place], [address] Eosinophils/100 WBC (Bld) 0.9 % Normal 0-5 [facility] Comment on above: Order Comment: 109.1 Performed By: #### L 100.0100 ####[facility] [address] [place], [address] Erythrocyte distribution width (RBC) [Ratio] 12.7 % Normal 11.6-14.6 [facility] Comment on above: Order Comment: 109.1 Performed By: #### L 100.0100 ####[facility] [address] [place], [address] Hematocrit (Bld) [Volume fraction] 41.9 % Normal 40-54 [facility] Comment on above: Order Comment: 109.1 Performed By: #### L 100.0100 ####[facility] [address] [place], [address] Hemoglobin (Bld) [Mass/Vol] 14.1 g/dL Normal 13.0-16.5 [facility] Comment on above: Order Comment: 109.1 Performed By: #### L 100.0100 ####[facility] [address] [place], [address] IG% 0.300 Normal 0.0-0.9 [facility] Comment on above: Order Comment: 109.1 Result Comment: IG% - Immature Granulocytes (promyelocytes, myelocytes andmetamyelocytes) > 1% indicates that a LEFT SHIFT is Present. Performed By: #### L 100.0100 ####[facility] [address] [place], [address] Lymphocytes/100 WBC (Bld) 27.0 % Normal 19-41 [facility] Comment on above: Order Comment: 109.1 Performed By: #### L 100.0100 ####[facility] [address] [place], [address] MCH (RBC) [Entitic mass] 30.3 pg Normal 27.0-32.0 [facility] Comment on above: Order Comment: 109.1 Performed By: #### L 100.0100 ####[facility] [address] [place], [address] MCHC (RBC) [Mass/Vol] 33.7 g/dL Normal 32-36 [facility] Comment on above: Order Comment: 109.1 Performed By: #### L 100.0100 ####[facility] [address] [place], [address] MCV (RBC) [Entitic vol] 90.1 fL Normal 80-94 [facility] Comment on above: Order Comment: 109.1 Performed By: #### L 100.0100 ####[facility] [address] [place], [address] Monocytes/100 WBC (Bld) 7.1 % Normal 0-10 [facility] [facility] Comment on above: Order Comment: 109.1 Performed By: #### L 100.0100 ####[facility] [address] [place], [address] Neutrophils/100 WBC (Bld) 64.2 % Normal 47-70 [facility] Comment on above: Order Comment: 109.1 Performed By: #### L 100.0100 ####[facility] [address] [place], [address] Nucleated RBC (Bld) [#/Vol] 0 10*3/uL Normal 0-5 [facility] Comment on above: Order Comment: 109.1 Performed By: #### L 100.0100 ####[facility] [address] [place], [address] Platelet mean volume (Bld) [Entitic vol] 11.2 fL Normal 6.2-12.0 [facility] Comment on above: Order Comment: 109.1 Performed By: #### L 100.0100 ####[facility] [address] [place], [address] Platelets (Bld) [#/Vol] 188 10*3/uL Normal 150-450 [facility] Comment on above: Order Comment: 109.1 Performed By: #### L 100.0100 ####[facility] [address] [place], [address] RBC (Bld) [#/Vol] 4.65 10*6/uL Normal 4.6-6.2 [facility] Comment on above: Order Comment: 109.1 Performed By: #### L 100.0100 ####[facility] [address] [place], [address] RDW SD 41.6 fl Normal 35.1-43.9 [facility] Comment on above: Order Comment: 109.1 Performed By: #### L 100.0100 ####[facility] [address] [place], [address] WBC (Bld) [#/Vol] 7.8 10*3/uL Normal 4.4-11.0 [facility] Comment on above: Order Comment: 109.1 Performed By: #### L 100.0100 ####[facility] [address] [place], [address] Eosinophil percentageOrdered By: Renard Burgos on 08-12-2024 Eosinophils/100 WBC (Bld) 0.9 % 0-5 [facility] Erythrocyte distribution wid th (RBC) [Ratio]Ordered By: Renard Burgos on 08-12-2024 Erythrocyte distribution width (RBC) [Entitic vol] 41.6 fL 35.1-43.9 [facility] Erythrocyte distribution wid th ratioOrdered By: Renard Burgos on 08-12-2024 Erythrocyte distribution width (RBC) [Ratio] 12.7 % 11.6-14.6 [facility] Erythrocyte distribution wid th standard deviationOrdered By: Renard Burgos on 08-12-2024 Erythrocyte distribution width (RBC) [Ratio] 41.6 fl 35.1-43.9 [facility] Hematocrit Auto (Bld) [Volum e fraction]Ordered By: Renard Burgos on 08-12-2024 Hematocrit (Bld) [Volume fraction] 41.9 % 40-54 [facility] Hemoglobin measurementOrdere d By: Renard Burgos on 08-12-2024 Hemoglobin (Bld) [Mass/Vol] 14.1 g/dL 13.0-16.5 [facility] Immature granulocytes/100 WB C Auto (Bld)Ordered By: Renard Burgos on 08-12-2024 Immature granulocytes/100 WBC (Bld) 0.300 % 0.0-0.9 [facility] Comment on above: IG% - Immature Granu locytes (promyelocytes, myelocytes and metamyelocytes) > 1% indicates that a LEFT SHIFT is Present. Lymphocytes Auto (Unsp spec) [#/Vol]Ordered By: Renard Burgos on 08-12-2024 Lymphocytes (Bld) [#/Vol] 2.09 10*3/uL 0.83-4.51 [facility] Lymphocytes/100 WBC Auto (Un sp spec)Ordered By: Renard Burgos on 08-12-2024 Lymphocytes/100 WBC (Bld) 27.0 % 19-41 [facility] MCV (mean corpuscular volume ) determinationOrdered By: Renard Burgos on 08-12-2024 MCV (RBC) [Entitic vol] 90.1 fL 80-94 [facility] Mean corpuscular hemoglobin (MCH) determinationOrdered By: Renard Burgos on 08-12-2024 MCH (RBC) [Entitic mass] 30.3 pg 27.0-32.0 [facility] Mean corpuscular hemoglobin concentration (MCHC) determinationOrdered By: Renard Burgos on 08-12-2024 MCHC (RBC) [Mass/Vol] 33.7 g/dL 32-36 [facility] Mean platelet volume determi nationOrdered By: Renard Burgos on 08-12-2024 Platelet mean volume (Bld) [Entitic vol] 11.2 fL 6.2-12.0 [facility] Monocyte percentageOrdered B y: Renard Burgos on 08-12-2024 Monocytes/100 WBC (Bld) 7.1 % 0-10 [facility] Neutrophil percentageOrdered By: Renard Burgos on 08-12-2024 Neutrophils/100 WBC (Bld) 64.2 % 47-70 [facility] Nucleated red blood cell per centageOrdered By: Renard Burgos on 08-12-2024 Nucleated RBC/100 WBC (Bld) [Ratio] 0 % 0-5 [facility] Platelet countOrdered By: Garrick Bhatt on 08-12-2024 Platelets (Bld) [#/Vol] 188 10*3/uL 150-450 [facility] RBC Auto (Bld) [#/Vol]Ordere d By: Renard Burgos on 08-12-2024 RBC (Bld) [#/Vol] 4.65 10*6/uL 4.6-6.2 [facility] White blood cell (WBC) count Ordered By: Renard Burgos on 08-12-2024 WBC (Bld) [#/Vol] 7.8 10*3/uL 4.4-11.0 [facility] Absolute lymphocyte countOrd ered By: Renard Burgos on 08-05-2024 Lymphocytes Auto (Unsp spec) [#/Vol] 2.31 10*3/uL 0.83-4.51 [facility] Absolute neutrophil countOrd ered By: Renard Burgos on 08-05-2024 Neutrophils (Bld) [#/Vol] 5.4 10*3/uL 2.0-7.7 [facility] Automated lymphocyte count a s percentage of total leukocytesOrdered By: Renard Burgos on 08-05-2024 Lymphocytes/100 WBC Auto (Unsp spec) 26.9 % 19-41 [facility] Basophil percentageOrdered B y: Renard Burgos on 08-05-2024 Basophils/100 WBC (Bld) 0.6 % 0-1 [facility] CBC W/Diff, Automatedon - Absolute Lymph 2.31 X10 3/uL Normal 0.83-4.51 [facility] Comment on above: Order Comment: 109.1 Performed By: #### L 100.0100 ####[facility] [address] [place], [address] Absolute Neut 5.4 X10 3/uL Normal 2.0-7.7 [facility] Comment on above: Order Comment: 109.1 Performed By: #### L 100.0100 ####[facility] [address] [place], [address] Basophils/100 WBC (Bld) 0.6 % Normal 0-1 [facility] Comment on above: Order Comment: 109.1 Performed By: #### L 100.0100 ####[facility] [address] [place], [address] Eosinophils/100 WBC (Bld) 0.8 % Normal 0-5 [facility] Comment on above: Order Comment: 109.1 Performed By: #### L 100.0100 ####[facility] [address] [place], [address] Erythrocyte distribution width (RBC) [Ratio] 12.7 % Normal 11.6-14.6 [facility] Comment on above: Order Comment: 109.1 Performed By: #### L 100.0100 ####[facility] [address] [place], [address] Hematocrit (Bld) [Volume fraction] 41.6 % Normal 40-54 [facility] Comment on above: Order Comment: 109.1 Performed By: #### L 100.0100 ####[facility] [address] [place], [address] Hemoglobin (Bld) [Mass/Vol] 13.7 g/dL Normal 13.0-16.5 [facility] Comment on above: Order Comment: 109.1 Performed By: #### L 100.0100 ####[facility] [address] [place], [address] IG% 0.300 Normal 0.0-0.9 [facility] Comment on above: Order Comment: 109.1 Result Comment: IG% - Immature Granulocytes (promyelocytes, myelocytes andmetamyelocytes) > 1% indicates that a LEFT SHIFT is Present. Performed By: #### L 100.0100 ####[facility] [address] [place], [address] Lymphocytes/100 WBC (Bld) 26.9 % Normal 19-41 [facility] Comment on above: Order Comment: 109.1 Performed By: #### L 100.0100 ####[facility] [address] [place], [address] MCH (RBC) [Entitic mass] 30.1 pg Normal 27.0-32.0 [facility] Comment on above: Order Comment: 109.1 Performed By: #### L 100.0100 ####[facility] [address] [place], [address] MCHC (RBC) [Mass/Vol] 32.9 g/dL Normal 32-36 [facility] Comment on above: Order Comment: 109.1 Performed By: #### L 100.0100 ####[facility] [address] [place], [address] MCV (RBC) [Entitic vol] 91.4 fL Normal 80-94 [facility] Comment on above: Order Comment: 109.1 Performed By: #### L 100.0100 ####[facility] [address] [place], [address] Monocytes/100 WBC (Bld) 8.3 % Normal 0-10 [facility] Comment on above: Order Comment: 109.1 Performed By: #### L 100.0100 ####[facility] [address] [place], [address] Neutrophils/100 WBC (Bld) 63.1 % Normal 47-70 [facility] Comment on above: Order Comment: 109.1 Performed By: #### L 100.0100 ####[facility] [address] [place], [address] Nucleated RBC (Bld) [#/Vol] 0 10*3/uL Normal 0-5 [facility] Comment on above: Order Comment: 109.1 Performed By: #### L 100.0100 ####[facility] [address] [place], [address] Platelet mean volume (Bld) [Entitic vol] 11.1 fL Normal 6.2-12.0 [facility] Comment on above: Order Comment: 109.1 Performed By: #### L 100.0100 ####[facility] [address] [place], [address] Platelets (Bld) [#/Vol] 199 10*3/uL Normal 150-450 [facility] Comment on above: Order Comment: 109.1 Performed By: #### L 100.0100 ####[facility] [address] [place], [address] RBC (Bld) [#/Vol] 4.55 10*6/uL Low 4.6-6.2 [facility] Comment on above: Order Comment: 109.1 Performed By: #### L 100.0100 ####[facility] [address] [place], [address] RDW SD 42.5 fl Normal 35.1-43.9 [facility] Comment on above: Order Comment: 109.1 Performed By: #### L 100.0100 ####[facility] [address] [place], [address] WBC (Bld) [#/Vol] 8.6 10*3/uL Normal 4.4-11.0 [facility] Comment on above: Order Comment: 109.1 Performed By: #### L 100.0100 ####[facility] [address] [place], [address] Eosinophil percentageOrdered By: Renard Burgos on 08-05-2024 Eosinophils/100 WBC (Bld) 0.8 % 0-5 [facility] Erythrocyte distribution wid th (RBC) [Ratio]Ordered By: Renard Burgos on 08-05-2024 Erythrocyte distribution width (RBC) [Entitic vol] 42.5 fL 35.1-43.9 [facility] Erythrocyte distribution wid th ratioOrdered By: Renard Burgos on 08-05-2024 Erythrocyte distribution width (RBC) [Ratio] 12.7 % 11.6-14.6 [facility] Erythrocyte distribution wid th standard deviationOrdered By: Renard Burgos on 08-05-2024 Erythrocyte distribution width (RBC) [Ratio] 42.5 fl 35.1-43.9 [facility] Hematocrit Auto (Bld) [Volum e fraction]Ordered By: Renard Burgos on 08-05-2024 Hematocrit (Bld) [Volume fraction] 41.6 % 40-54 [facility] Hemoglobin measurementOrdere d By: Renard Burgos on 08-05-2024 Hemoglobin (Bld) [Mass/Vol] 13.7 g/dL 13.0-16.5 [facility] Immature granulocytes/100 WB C Auto (Bld)Ordered By: Renard Burgos on 08-05-2024 Immature granulocytes/100 WBC (Bld) 0.300 % 0.0-0.9 [facility] Comment on above: IG% - Immature Granu locytes (promyelocytes, myelocytes and metamyelocytes) > 1% indicates that a LEFT SHIFT is Present. Lymphocytes Auto (Unsp spec) [#/Vol]Ordered By: Renard Burgos on 08-05-2024 Lymphocytes (Bld) [#/Vol] 2.31 10*3/uL 0.83-4.51 [facility] Lymphocytes/100 WBC Auto (Un sp spec)Ordered By: Renard Burgos on 08-05-2024 Lymphocytes/100 WBC (Bld) 26.9 % 19-41 [facility] MCV (mean corpuscular volume ) determinationOrdered By: Renard Burgos on 08-05-2024 MCV (RBC) [Entitic vol] 91.4 fL 80-94 [facility] Mean corpuscular hemoglobin (MCH) determinationOrdered By: Renard Burgos on 08-05-2024 MCH (RBC) [Entitic mass] 30.1 pg 27.0-32.0 [facility] Mean corpuscular hemoglobin concentration (MCHC) determinationOrdered By: Renard Burgos on 08-05-2024 MCHC (RBC) [Mass/Vol] 32.9 g/dL 32-36 [facility] Mean platelet volume determi nationOrdered By: Renard Burgos on 08-05-2024 Platelet mean volume (Bld) [Entitic vol] 11.1 fL 6.2-12.0 [facility] Monocyte percentageOrdered B y: Renard Burgos on 08-05-2024 Monocytes/100 WBC (Bld) 8.3 % 0-10 [facility] Neutrophil percentageOrdered By: Renard Burgos on 08-05-2024 Neutrophils/100 WBC (Bld) 63.1 % 47-70 [facility] Nucleated red blood cell per centageOrdered By: Renard Burgos on 08-05-2024 Nucleated RBC/100 WBC (Bld) [Ratio] 0 % 0-5 [facility] Platelet countOrdered By: Garrick Bhatt on 08-05-2024 Platelets (Bld) [#/Vol] 199 10*3/uL 150-450 [facility] RBC Auto (Bld) [#/Vol]Ordere d By: Renard Burgos on 08-05-2024 RBC (Bld) [#/Vol] 4.55 10*6/uL Low 4.6-6.2 [facility] White blood cell (WBC) count Ordered By: Renard Burgos on 08-05-2024 WBC (Bld) [#/Vol] 8.6 10*3/uL 4.4-11.0 [facility] Absolute lymphocyte countOrd ered By: Renard Burgos on 07-29-2024 Lymphocytes Auto (Unsp spec) [#/Vol] 1.93 10*3/uL 0.83-4.51 [facility] Absolute neutrophil countOrd ered By: Renard Burgos on 07-29-2024 Neutrophils (Bld) [#/Vol] 6.8 10*3/uL 2.0-7.7 [facility] Automated lymphocyte count a s percentage of total leukocytesOrdered By: Renard Burgos on 07-29-2024 Lymphocytes/100 WBC Auto (Unsp spec) 20.2 % 19-41 [facility] Basophil percentageOrdered B y: Renard Burgos on 07-29-2024 Basophils/100 WBC (Bld) 0.5 % 0-1 [facility] CBC W/Diff, Automatedon 07-01 Absolute Lymph 1.93 X10 3/uL Normal 0.83-4.51 [facility] Comment on above: Order Comment: 109-1 Performed By: #### L 100.0100 ####[facility] [address] [place], [address] Absolute Neut 6.8 X10 3/uL Normal 2.0-7.7 [facility] Comment on above: Order Comment: 109-1 Performed By: #### L 100.0100 ####[facility] [address] [place], [address] Basophils/100 WBC (Bld) 0.5 % Normal 0-1 [facility] Comment on above: Order Comment: 109-1 Performed By: #### L 100.0100 ####[facility] [address] [place], [address] Eosinophils/100 WBC (Bld) 0.7 % Normal 0-5 [facility] Comment on above: Order Comment: 109-1 Performed By: #### L 100.0100 ####[facility] [address] [place], [address] Erythrocyte distribution width (RBC) [Ratio] 12.8 % Normal 11.6-14.6 [facility] Comment on above: Order Comment: 109-1 Performed By: #### L 100.0100 ####[facility] [address] [place], [address] Hematocrit (Bld) [Volume fraction] 40.7 % Normal 40-54 [facility] Comment on above: Order Comment: 109-1 Performed By: #### L 100.0100 ####[facility] [address] [place], [address] Hemoglobin (Bld) [Mass/Vol] 13.5 g/dL Normal 13.0-16.5 [facility] Comment on above: Order Comment: 109-1 Performed By: #### L 100.0100 ####[facility] [address] [place], [address] IG% 0.400 Normal 0.0-0.9 [facility] Comment on above: Order Comment: 109-1 Result Comment: IG% - Immature Granulocytes (promyelocytes, myelocytes andmetamyelocytes) > 1% indicates that a LEFT SHIFT is Present. Performed By: #### L 100.0100 ####[facility] [address] [place], [address] Lymphocytes/100 WBC (Bld) 20.2 % Normal 19-41 [facility] Comment on above: Order Comment: 109-1 Performed By: #### L 100.0100 ####[facility] [address] [place], [address] MCH (RBC) [Entitic mass] 29.9 pg Normal 27.0-32.0 [facility] Comment on above: Order Comment: 109-1 Performed By: #### L 100.0100 ####[facility] [address] [place], [address] MCHC (RBC) [Mass/Vol] 33.2 g/dL Normal 32-36 [facility] Comment on above: Order Comment: 109-1 Performed By: #### L 100.0100 ####[facility] [address] [place], [address] MCV (RBC) [Entitic vol] 90.0 fL Normal 80-94 [facility] Comment on above: Order Comment: 109-1 Performed By: #### L 100.0100 ####[facility] [address] [place], [address] Monocytes/100 WBC (Bld) 7.1 % Normal 0-10 [facility] Comment on above: Order Comment: 109-1 Performed By: #### L 100.0100 ####[facility] [address] [place], [address] Neutrophils/100 WBC (Bld) 71.1 % High 47-70 [facility] Comment on above: Order Comment: 109-1 Performed By: #### L 100.0100 ####[facility] [address] [place], [address] Nucleated RBC (Bld) [#/Vol] 0 10*3/uL Normal 0-5 [facility] Comment on above: Order Comment: 109-1 Performed By: #### L 100.0100 ####[facility] [address] [place], [address] Platelet mean volume (Bld) [Entitic vol] 11.2 fL Normal 6.2-12.0 [facility] Comment on above: Order Comment: 109-1 Performed By: #### L 100.0100 ####[facility] [address] [place], [address] Platelets (Bld) [#/Vol] 218 10*3/uL Normal 150-450 [facility] Comment on above: Order Comment: 109-1 Performed By: #### L 100.0100 ####[facility] [address] [place], [address] RBC (Bld) [#/Vol] 4.52 10*6/uL Low 4.6-6.2 [facility] Comment on above: Order Comment: 109-1 Performed By: #### L 100.0100 ####[facility] [address] [place], [address] RDW SD 41.9 fl Normal 35.1-43.9 [facility] Comment on above: Order Comment: 109-1 Performed By: #### L 100.0100 ####[facility] [address] [place], [address] WBC (Bld) [#/Vol] 9.6 10*3/uL Normal 4.4-11.0 [facility] Comment on above: Order Comment: 109-1 Performed By: #### L 100.0100 ####[facility] [address] [place], [address] Eosinophil percentageOrdered By: Renard Burgos on 07-29-2024 Eosinophils/100 WBC (Bld) 0.7 % 0-5 [facility] Erythrocyte distribution wid th ratioOrdered By: Renard Burgos on 07-29-2024 Erythrocyte distribution width (RBC) [Ratio] 12.8 % 11.6-14.6 [facility] Erythrocyte distribution wid th standard deviationOrdered By: Renard Burgos on 07-29-2024 Erythrocyte distribution width (RBC) [Entitic vol] 41.9 fL 35.1-43.9 [facility] Erythrocyte distribution width (RBC) [Ratio] 41.9 fl 35.1-43.9 [facility] Hematocrit Auto (Bld) [Volum e fraction]Ordered By: Renard Burgos on 07-29-2024 Hematocrit (Bld) [Volume fraction] 40.7 % 40-54 [facility] Hemoglobin measurementOrdere d By: Renard Burgos on 07-29-2024 Hemoglobin (Bld) [Mass/Vol] 13.5 g/dL 13.0-16.5 [facility] Immature granulocytes/100 WB C Auto (Bld)Ordered By: Renard Burgos on 07-29-2024 Immature granulocytes/100 WBC (Bld) 0.400 % 0.0-0.9 [facility] Comment on above: IG% - Immature Granu locytes (promyelocytes, myelocytes and metamyelocytes) > 1% indicates that a LEFT SHIFT is Present. Lymphocytes Auto (Unsp spec) [#/Vol]Ordered By: Renard Burgos on 07-29-2024 Lymphocytes (Bld) [#/Vol] 1.93 10*3/uL 0.83-4.51 [facility] Lymphocytes/100 WBC Auto (Un sp spec)Ordered By: Renard Burgos on 07-29-2024 Lymphocytes/100 WBC (Bld) 20.2 % 19-41 [facility] MCV (mean corpuscular volume ) determinationOrdered By: Renard Burgos on 07-29-2024 MCV (RBC) [Entitic vol] 90.0 fL 80-94 [facility] Mean corpuscular hemoglobin (MCH) determinationOrdered By: Renard Burgos on 07-29-2024 MCH (RBC) [Entitic mass] 29.9 pg 27.0-32.0 [facility] Mean corpuscular hemoglobin concentration (MCHC) determinationOrdered By: Rneard Burgos on 07-29-2024 MCHC (RBC) [Mass/Vol] 33.2 g/dL 32-36 [facility] Mean platelet volume determi nationOrdered By: Renard Burgos on 07-29-2024 Platelet mean volume (Bld) [Entitic vol] 11.2 fL 6.2-12.0 [facility] Monocyte percentageOrdered B y: Renard Burgos on 07-29-2024 Monocytes/100 WBC (Bld) 7.1 % 0-10 [facility] Neutrophil percentageOrdered By: Renard Burgos on 07-29-2024 Neutrophils/100 WBC (Bld) 71.1 % High 47-70 [facility] Nucleated red blood cell per centageOrdered By: Renard Burgos on 07-29-2024 Nucleated RBC/100 WBC (Bld) [Ratio] 0 % 0-5 [facility] Platelet countOrdered By: Garrick Bhatt on 07-29-2024 Platelets (Bld) [#/Vol] 218 10*3/uL 150-450 [facility] RBC Auto (Bld) [#/Vol]Ordere d By: Renard Burgos on 07-29-2024 RBC (Bld) [#/Vol] 4.52 10*6/uL Low 4.6-6.2 [facility] White blood cell (WBC) count Ordered By: Renard Burgos on 07-29-2024 WBC (Bld) [#/Vol] 9.6 10*3/uL 4.4-11.0 [facility] Absolute lymphocyte countOrd ered By: Renard Burgos on 07-22-2024 Lymphocytes Auto (Unsp spec) [#/Vol] 1.90 10*3/uL 0.83-4.51 [facility] Absolute neutrophil countOrd ered By: Renard Burgos on 07-22-2024 Neutrophils (Bld) [#/Vol] 5.2 10*3/uL 2.0-7.7 [facility] Automated lymphocyte count a s percentage of total leukocytesOrdered By: Renard Burgos on 07-22-2024 Lymphocytes/100 WBC Auto (Unsp spec) 23.9 % 19-41 [facility] Basophil percentageOrdered B y: Renard Burgos on 07-22-2024 Basophils/100 WBC (Bld) 0.6 % 0-1 [facility] CBC W/Diff, Automatedon 06-30 Absolute Lymph 1.90 X10 3/uL Normal 0.83-4.51 [facility] Comment on above: Order Comment: 109.1 Performed By: #### L 100.0100 ####[facility] [address] [place], [place], [id number] Absolute Neut 5.2 X10 3/uL Normal 2.0-7.7 [facility] Comment on above: Order Comment: 109.1 Performed By: #### L 100.0100 ####[facility] [address] [place], [address] Basophils/100 WBC (Bld) 0.6 % Normal 0-1 [facility] Comment on above: Order Comment: 109.1 Performed By: #### L 100.0100 ####[facility] [address] [place], [address] Eosinophils/100 WBC (Bld) 0.9 % Normal 0-5 [facility] Comment on above: Order Comment: 109.1 Performed By: #### L 100.0100 ####[facility] [address] [place], [address] Erythrocyte distribution width (RBC) [Ratio] 12.9 % Normal 11.6-14.6 [facility] Comment on above: Order Comment: 109.1 Performed By: #### L 100.0100 ####[facility] [address] [place], [address] Hematocrit (Bld) [Volume fraction] 41.4 % Normal 40-54 [facility] Comment on above: Order Comment: 109.1 Performed By: #### L 100.0100 ####[facility] [address] [place], [address] Hemoglobin (Bld) [Mass/Vol] 13.5 g/dL Normal 13.0-16.5 [facility] Comment on above: Order Comment: 109.1 Performed By: #### L 100.0100 ####[facility] [address] [place], [address] IG% 0.300 Normal 0.0-0.9 [facility] Comment on above: Order Comment: 109.1 Result Comment: IG% - Immature Granulocytes (promyelocytes, myelocytes andmetamyelocytes) > 1% indicates that a LEFT SHIFT is Present. Performed By: #### L 100.0100 ####[facility] [address] [place], [address] Lymphocytes/100 WBC (Bld) 23.9 % Normal 19-41 [facility] Comment on above: Order Comment: 109.1 Performed By: #### L 100.0100 ####[facility] [address] [place], [address] MCH (RBC) [Entitic mass] 29.8 pg Normal 27.0-32.0 [facility] Comment on above: Order Comment: 109.1 Performed By: #### L 100.0100 ####[facility] [address] [place], [address] MCHC (RBC) [Mass/Vol] 32.6 g/dL Normal 32-36 [facility] Comment on above: Order Comment: 109.1 Performed By: #### L 100.0100 ####[facility] [address] [place], [address] MCV (RBC) [Entitic vol] 91.4 fL Normal 80-94 [facility] Comment on above: Order Comment: 109.1 Performed By: #### L 100.0100 ####[facility] [address] [place], [address] Monocytes/100 WBC (Bld) 9.4 % Normal 0-10 [facility] Comment on above: Order Comment: 109.1 Performed By: #### L 100.0100 ####[facility] [address] [place], [address] Neutrophils/100 WBC (Bld) 64.9 % Normal 47-70 [facility] Comment on above: Order Comment: 109.1 Performed By: #### L 100.0100 ####[facility] [address] [place], [address] Nucleated RBC (Bld) [#/Vol] 0 10*3/uL Normal 0-5 [facility] Comment on above: Order Comment: 109.1 Performed By: #### L 100.0100 ####[facility] [address] [place], [address] Platelet mean volume (Bld) [Entitic vol] 11.5 fL Normal 6.2-12.0 [facility] [facility] Comment on above: Order Comment: 109.1 Performed By: #### L 100.0100 ####[facility] [address] [place], [address] Platelets (Bld) [#/Vol] 202 10*3/uL Normal 150-450 [facility] Comment on above: Order Comment: 109.1 Performed By: #### L 100.0100 ####[facility] [address] [place], [address] RBC (Bld) [#/Vol] 4.53 10*6/uL Low 4.6-6.2 [facility] Comment on above: Order Comment: 109.1 Performed By: #### L 100.0100 ####[facility] [address] [place], [address] RDW SD 42.7 fl Normal 35.1-43.9 [facility] Comment on above: Order Comment: 109.1 Performed By: #### L 100.0100 ####[facility] [address] [place], [address] WBC (Bld) [#/Vol] 8.0 10*3/uL Normal 4.4-11.0 [facility] Comment on above: Order Comment: 109.1 Performed By: #### L 100.0100 ####[facility] [address] [place], [address] Eosinophil percentageOrdered By: Renard Burgos on 07-22-2024 Eosinophils/100 WBC (Bld) 0.9 % 0-5 [facility] Erythrocyte distribution wid th ratioOrdered By: Renard Burgos on 07-22-2024 Erythrocyte distribution width (RBC) [Ratio] 12.9 % 11.6-14.6 [facility] Erythrocyte distribution wid th standard deviationOrdered By: Renard Burgos on 07-22-2024 Erythrocyte distribution width (RBC) [Entitic vol] 42.7 fL 35.1-43.9 [facility] Erythrocyte distribution width (RBC) [Ratio] 42.7 fl 35.1-43.9 [facility] Hematocrit Auto (Bld) [Volum e fraction]Ordered By: Renard Burgos on 07-22-2024 Hematocrit (Bld) [Volume fraction] 41.4 % 40-54 [facility] Hemoglobin measurementOrdere d By: Renard Burgos on 07-22-2024 Hemoglobin (Bld) [Mass/Vol] 13.5 g/dL 13.0-16.5 [facility] Immature granulocytes/100 WB C Auto (Bld)Ordered By: Renard Burgos on 07-22-2024 Immature granulocytes/100 WBC (Bld) 0.300 % 0.0-0.9 [facility] Comment on above: IG% - Immature Granu locytes (promyelocytes, myelocytes and metamyelocytes) > 1% indicates that a LEFT SHIFT is Present. Lymphocytes Auto (Unsp spec) [#/Vol]Ordered By: Renard Burgos on 07-22-2024 Lymphocytes (Bld) [#/Vol] 1.90 10*3/uL 0.83-4.51 [facility] Lymphocytes/100 WBC Auto (Un sp spec)Ordered By: Renard Burgos on 07-22-2024 Lymphocytes/100 WBC (Bld) 23.9 % 19-41 [facility] MCV (mean corpuscular volume ) determinationOrdered By: Renard Burgos on 07-22-2024 MCV (RBC) [Entitic vol] 91.4 fL 80-94 [facility] Mean corpuscular hemoglobin (MCH) determinationOrdered By: Renard Burgos on 07-22-2024 MCH (RBC) [Entitic mass] 29.8 pg 27.0-32.0 [facility] Mean corpuscular hemoglobin concentration (MCHC) determinationOrdered By: Renard Burgos on 07-22-2024 MCHC (RBC) [Mass/Vol] 32.6 g/dL 32-36 [facility] Mean platelet volume determi nationOrdered By: Renard Burgos on 07-22-2024 Platelet mean volume (Bld) [Entitic vol] 11.5 fL 6.2-12.0 [facility] Monocyte percentageOrdered B y: Renard Burgos on 07-22-2024 Monocytes/100 WBC (Bld) 9.4 % 0-10 [facility] Neutrophil percentageOrdered By: Renard Burgos on 07-22-2024 Neutrophils/100 WBC (Bld) 64.9 % 47-70 [facility] Nucleated red blood cell per centageOrdered By: Renard Burgos on 07-22-2024 Nucleated RBC/100 WBC (Bld) [Ratio] 0 % 0-5 [facility] Platelet countOrdered By: Garrick Bhatt on 07-22-2024 Platelets (Bld) [#/Vol] 202 10*3/uL 150-450 [facility] RBC Auto (Bld) [#/Vol]Ordere d By: Renard Burgos on 07-22-2024 RBC (Bld) [#/Vol] 4.53 10*6/uL Low 4.6-6.2 [facility] White blood cell (WBC) count Ordered By: Renard Burgos on 07-22-2024 WBC (Bld) [#/Vol] 8.0 10*3/uL 4.4-11.0 [facility] L506.1001on 07-16-2024 Vitamin D 25-OH 21.8 ng/mL Low 30-100 [facility] Comment on above: Order Comment: 109 Result Comment: Edilma min D StatusDeficiency: <20 ng/mL (50nmol/L)Insufficiency: 20-30 ng/mL (50-75 nmol/L)Sufficiency: 30-100 ng/mL (75-250 nmol/L)Toxicity: >100 ng/mL (>250 nmol/L) Performed By: #### L 506.1001 ####[facility] [address] [place], [address] Vitamin D, 25-hydroxyOrdered By: Renard Burgos on 07-16-2024 Vitamin D 25-Hydroxy 21.8 ng/mL Low 30-100 [facility] Comment on above: Vitamin D StatusDefi ciency: <20 ng/mL (50nmol/L)Insufficiency: 20-30 ng/mL (50-75 nmol/L)Sufficiency: 30-100 ng/mL (75-250 nmol/L)Toxicity: >100 ng/mL (>250 nmol/L) Absolute lymphocyte countOrd ered By: Renard Burgos on 07-15-2024 Lymphocytes Auto (Unsp spec) [#/Vol] 2.10 10*3/uL 0.83-4.51 [facility] Absolute neutrophil countOrd ered By: Renard Burgos on 07-15-2024 Neutrophils (Bld) [#/Vol] 6.9 10*3/uL 2.0-7.7 [facility] Automated lymphocyte count a s percentage of total leukocytesOrdered By: Renard Burgos on 07-15-2024 Lymphocytes/100 WBC Auto (Unsp spec) 21.0 % 19-41 [facility] Basophil percentageOrdered B y: Renard Burgos on 07-15-2024 Basophils/100 WBC (Bld) 0.5 % 0-1 [facility] CBC W/Diff, Automatedon 06-29 Absolute Lymph 2.10 X10 3/uL Normal 0.83-4.51 [facility] Comment on above: Order Comment: 109.1 Performed By: #### L 100.0100 ####[facility] [address] [place], [address] Absolute Neut 6.9 X10 3/uL Normal 2.0-7.7 [facility] Comment on above: Order Comment: 109.1 Performed By: #### L 100.0100 ####[facility] [address] [place], [address] Basophils/100 WBC (Bld) 0.5 % Normal 0-1 [facility] Comment on above: Order Comment: 109.1 Performed By: #### L 100.0100 ####[facility] [address] [place], [address] Eosinophils/100 WBC (Bld) 1.2 % Normal 0-5 [facility] Comment on above: Order Comment: 109.1 Performed By: #### L 100.0100 ####[facility] [address] [place], [address] Erythrocyte distribution width (RBC) [Ratio] 12.9 % Normal 11.6-14.6 [facility] Comment on above: Order Comment: 109.1 Performed By: #### L 100.0100 ####[facility] [address] [place], [address] Hematocrit (Bld) [Volume fraction] 41.0 % Normal 40-54 [facility] Comment on above: Order Comment: 109.1 Performed By: #### L 100.0100 ####[facility] [address] [place], [address] Hemoglobin (Bld) [Mass/Vol] 13.4 g/dL Normal 13.0-16.5 [facility] Comment on above: Order Comment: 109.1 Performed By: #### L 100.0100 ####[facility] [address] [place], [address] IG% 0.300 Normal 0.0-0.9 [facility] Comment on above: Order Comment: 109.1 Result Comment: IG% - Immature Granulocytes (promyelocytes, myelocytes andmetamyelocytes) > 1% indicates that a LEFT SHIFT is Present. Performed By: #### L 100.0100 ####[facility] [address] [place], [address] Lymphocytes/100 WBC (Bld) 21.0 % Normal 19-41 [facility] Comment on above: Order Comment: 109.1 Performed By: #### L 100.0100 ####[facility] [address] [place], [address] MCH (RBC) [Entitic mass] 29.7 pg Normal 27.0-32.0 [facility] Comment on above: Order Comment: 109.1 Performed By: #### L 100.0100 ####[facility] [address] [place], [address] MCHC (RBC) [Mass/Vol] 32.7 g/dL Normal 32-36 [facility] Comment on above: Order Comment: 109.1 Performed By: #### L 100.0100 ####[facility] [address] [place], [address] MCV (RBC) [Entitic vol] 90.9 fL Normal 80-94 [facility] Comment on above: Order Comment: 109.1 Performed By: #### L 100.0100 ####[facility] [address] [place], [address] Monocytes/100 WBC (Bld) 7.6 % Normal 0-10 [facility] Comment on above: Order Comment: 109.1 Performed By: #### L 100.0100 ####[facility] [address] [place], [address] Neutrophils/100 WBC (Bld) 69.4 % Normal 47-70 [facility] Comment on above: Order Comment: 109.1 Performed By: #### L 100.0100 ####[facility] [address] [place], [address] Nucleated RBC (Bld) [#/Vol] 0 10*3/uL Normal 0-5 [facility] Comment on above: Order Comment: 109.1 Performed By: #### L 100.0100 ####[facility] [address] [place], [address] Platelet mean volume (Bld) [Entitic vol] 11.4 fL Normal 6.2-12.0 [facility] Comment on above: Order Comment: 109.1 Performed By: #### L 100.0100 ####[facility] [address] [place], [address] Platelets (Bld) [#/Vol] 206 10*3/uL Normal 150-450 [facility] Comment on above: Order Comment: 109.1 Performed By: #### L 100.0100 ####[facility] [address] [place], [address] RBC (Bld) [#/Vol] 4.51 10*6/uL Low 4.6-6.2 [facility] Comment on above: Order Comment: 109.1 Performed By: #### L 100.0100 ####[facility] [address] [place], [address] RDW SD 42.3 fl Normal 35.1-43.9 [facility] Comment on above: Order Comment: 109.1 Performed By: #### L 100.0100 ####[facility] [address] [place], [address] WBC (Bld) [#/Vol] 10.0 10*3/uL Normal 4.4-11.0 [facility] Comment on above: Order Comment: 109.1 Performed By: #### L 100.0100 ####[facility] [address] [place], [address] Eosinophil percentageOrdered By: Renard Burgos on 07-15-2024 Eosinophils/100 WBC (Bld) 1.2 % 0-5 [facility] Erythrocyte distribution wid th ratioOrdered By: Renard Burgos on 07-15-2024 Erythrocyte distribution width (RBC) [Ratio] 12.9 % 11.6-14.6 [facility] Erythrocyte distribution wid th standard deviationOrdered By: Renard Burgos on 07-15-2024 Erythrocyte distribution width (RBC) [Entitic vol] 42.3 fL 35.1-43.9 [facility] Erythrocyte distribution width (RBC) [Ratio] 42.3 fl 35.1-43.9 [facility] Hematocrit Auto (Bld) [Volum e fraction]Ordered By: Renard Burgos on 07-15-2024 Hematocrit (Bld) [Volume fraction] 41.0 % 40-54 [facility] Hemoglobin measurementOrdere d By: Renard Burgos on 07-15-2024 Hemoglobin (Bld) [Mass/Vol] 13.4 g/dL 13.0-16.5 [facility] Immature granulocytes/100 WB C Auto (Bld)Ordered By: Renard Burgos on 07-15-2024 Immature granulocytes/100 WBC (Bld) 0.300 % 0.0-0.9 [facility] Comment on above: IG% - Immature Granu locytes (promyelocytes, myelocytes and metamyelocytes) > 1% indicates that a LEFT SHIFT is Present. Lymphocytes Auto (Unsp spec) [#/Vol]Ordered By: Renard Burgos on 07-15-2024 Lymphocytes (Bld) [#/Vol] 2.10 10*3/uL 0.83-4.51 [facility] Lymphocytes/100 WBC Auto (Un sp spec)Ordered By: Renard Burgos on 07-15-2024 Lymphocytes/100 WBC (Bld) 21.0 % 19-41 [facility] MCV (mean corpuscular volume ) determinationOrdered By: Renard Burgos on 07-15-2024 MCV (RBC) [Entitic vol] 90.9 fL 80-94 [facility] Mean corpuscular hemoglobin (MCH) determinationOrdered By: Renard Burgos on 07-15-2024 MCH (RBC) [Entitic mass] 29.7 pg 27.0-32.0 [facility] Mean corpuscular hemoglobin concentration (MCHC) determinationOrdered By: Renard Burgos on 07-15-2024 MCHC (RBC) [Mass/Vol] 32.7 g/dL 32-36 [facility] Mean platelet volume determi nationOrdered By: Renard Burgos on 07-15-2024 Platelet mean volume (Bld) [Entitic vol] 11.4 fL 6.2-12.0 [facility] Monocyte percentageOrdered B y: Renard Burgos on 07-15-2024 Monocytes/100 WBC (Bld) 7.6 % 0-10 [facility] Neutrophil percentageOrdered By: Renard Burgos on 07-15-2024 Neutrophils/100 WBC (Bld) 69.4 % 47-70 [facility] Nucleated red blood cell per centageOrdered By: Renard Burgos on 07-15-2024 Nucleated RBC/100 WBC (Bld) [Ratio] 0 % 0-5 [facility] Platelet countOrdered By: Garrick Bhatt on 07-15-2024 Platelets (Bld) [#/Vol] 206 10*3/uL 150-450 [facility] RBC Auto (Bld) [#/Vol]Ordere d By: Renard Burgos on 07-15-2024 RBC (Bld) [#/Vol] 4.51 10*6/uL Low 4.6-6.2 [facility] White blood cell (WBC) count Ordered By: Renard Burgos on 07-15-2024 WBC (Bld) [#/Vol] 10.0 10*3/uL 4.4-11.0 [facility] Absolute lymphocyte countOrd ered By: Renard Burgos on 07-08-2024 Lymphocytes Auto (Unsp spec) [#/Vol] 2.02 10*3/uL 0.83-4.51 [facility] Absolute neutrophil countOrd ered By: Renard Burgos on 07-08-2024 Neutrophils (Bld) [#/Vol] 7.2 10*3/uL 2.0-7.7 [facility] Automated lymphocyte count a s percentage of total leukocytesOrdered By: Renard Burgos on 07-08-2024 Lymphocytes/100 WBC Auto (Unsp spec) 19.7 % 19-41 [facility] Basophil percentageOrdered B y: Renard Burgos on 07-08-2024 Basophils/100 WBC (Bld) 0.6 % 0-1 [facility] CBC W/Diff, Automatedon 06-29 Absolute Lymph 2.02 X10 3/uL Normal 0.83-4.51 [facility] Comment on above: Order Comment: 109-1 Performed By: #### L 100.0100 ####[facility] [address] [place], [address] Absolute Neut 7.2 X10 3/uL Normal 2.0-7.7 [facility] Comment on above: Order Comment: 109-1 Performed By: #### L 100.0100 ####[facility] [address] [place], [address] Basophils/100 WBC (Bld) 0.6 % Normal 0-1 [facility] Comment on above: Order Comment: 109-1 Performed By: #### L 100.0100 ####[facility] [address] [place], [address] Eosinophils/100 WBC (Bld) 1.5 % Normal 0-5 [facility] Comment on above: Order Comment: 109-1 Performed By: #### L 100.0100 ####[facility] [address] [place], [address] Erythrocyte distribution width (RBC) [Ratio] 12.9 % Normal 11.6-14.6 [facility] Comment on above: Order Comment: 109-1 Performed By: #### L 100.0100 ####[facility] [address] [place], [address] Hematocrit (Bld) [Volume fraction] 40.6 % Normal 40-54 [facility] Comment on above: Order Comment: 109-1 Performed By: #### L 100.0100 ####[facility] [address] [place], [address] Hemoglobin (Bld) [Mass/Vol] 13.6 g/dL Normal 13.0-16.5 [facility] Comment on above: Order Comment: 109-1 Performed By: #### L 100.0100 ####[facility] [address] [place], [address] IG% 0.500 Normal 0.0-0.9 [facility] Comment on above: Order Comment: 109-1 Result Comment: IG% - Immature Granulocytes (promyelocytes, myelocytes andmetamyelocytes) > 1% indicates that a LEFT SHIFT is Present. Performed By: #### L 100.0100 ####[facility] [address] [place], [address] Lymphocytes/100 WBC (Bld) 19.7 % Normal 19-41 [facility] Comment on above: Order Comment: 109-1 Performed By: #### L 100.0100 ####[facility] [address] [place], [address] MCH (RBC) [Entitic mass] 30.5 pg Normal 27.0-32.0 [facility] Comment on above: Order Comment: 109-1 Performed By: #### L 100.0100 ####[facility] [address] [place], [address] MCHC (RBC) [Mass/Vol] 33.5 g/dL Normal 32-36 [facility] Comment on above: Order Comment: 109-1 Performed By: #### L 100.0100 ####[facility] [address] [place], [address] MCV (RBC) [Entitic vol] 91.0 fL Normal 80-94 [facility] Comment on above: Order Comment: 109-1 Performed By: #### L 100.0100 ####[facility] [address] [place], [address] Monocytes/100 WBC (Bld) 7.4 % Normal 0-10 [facility] Comment on above: Order Comment: 109-1 Performed By: #### L 100.0100 ####[facility] [address] [place], [address] Neutrophils/100 WBC (Bld) 70.3 % High 47-70 [facility] Comment on above: Order Comment: 109-1 Performed By: #### L 100.0100 ####[facility] [address] [place], [address] Nucleated RBC (Bld) [#/Vol] 0 10*3/uL Normal 0-5 [facility] Comment on above: Order Comment: 109-1 Performed By: #### L 100.0100 ####[facility] [address] [place], [address] Platelet mean volume (Bld) [Entitic vol] 11.1 fL Normal 6.2-12.0 [facility] Comment on above: Order Comment: 109-1 Performed By: #### L 100.0100 ####[facility] [address] [place], [address] Platelets (Bld) [#/Vol] 207 10*3/uL Normal 150-450 [facility] Comment on above: Order Comment: 109-1 Performed By: #### L 100.0100 ####[facility] [address] [place], [address] RBC (Bld) [#/Vol] 4.46 10*6/uL Low 4.6-6.2 [facility] Comment on above: Order Comment: 109-1 Performed By: #### L 100.0100 ####[facility] [address] [place], [address] RDW SD 42.5 fl Normal 35.1-43.9 [facility] Comment on above: Order Comment: 109-1 Performed By: #### L 100.0100 ####[facility] [address] [place], [address] WBC (Bld) [#/Vol] 10.3 10*3/uL Normal 4.4-11.0 [facility] Comment on above: Order Comment: 109-1 Performed By: #### L 100.0100 ####[facility] [address] [place], [address] Eosinophil percentageOrdered By: Renard Burgos on 07-08-2024 Eosinophils/100 WBC (Bld) 1.5 % 0-5 [facility] Erythrocyte distribution wid th ratioOrdered By: Renard Burgos on 07-08-2024 Erythrocyte distribution width (RBC) [Ratio] 12.9 % 11.6-14.6 [facility] Erythrocyte distribution wid th standard deviationOrdered By: Renard Burgos on 07-08-2024 Erythrocyte distribution width (RBC) [Entitic vol] 42.5 fL 35.1-43.9 [facility] Erythrocyte distribution width (RBC) [Ratio] 42.5 fl 35.1-43.9 [facility] Hematocrit Auto (Bld) [Volum e fraction]Ordered By: Renard Burgos on 07-08-2024 Hematocrit (Bld) [Volume fraction] 40.6 % 40-54 [facility] Hemoglobin measurementOrdere d By: Renard Burgos on 07-08-2024 Hemoglobin (Bld) [Mass/Vol] 13.6 g/dL 13.0-16.5 [facility] Immature granulocytes/100 WB C Auto (Bld)Ordered By: Renard Burgos on 07-08-2024 Immature granulocytes/100 WBC (Bld) 0.500 % 0.0-0.9 [facility] Comment on above: IG% - Immature Granu locytes (promyelocytes, myelocytes and metamyelocytes) > 1% indicates that a LEFT SHIFT is Present. Lymphocytes Auto (Unsp spec) [#/Vol]Ordered By: Renard Burgos on 07-08-2024 Lymphocytes (Bld) [#/Vol] 2.02 10*3/uL 0.83-4.51 [facility] Lymphocytes/100 WBC Auto (Un sp spec)Ordered By: Renard Burgos on 07-08-2024 Lymphocytes/100 WBC (Bld) 19.7 % 19-41 [facility] MCV (mean corpuscular volume ) determinationOrdered By: Renard Burgos on 07-08-2024 MCV (RBC) [Entitic vol] 91.0 fL 80-94 [facility] Mean corpuscular hemoglobin (MCH) determinationOrdered By: Renard Burgos on 07-08-2024 MCH (RBC) [Entitic mass] 30.5 pg 27.0-32.0 [facility] Mean corpuscular hemoglobin concentration (MCHC) determinationOrdered By: Renard Burgos on 07-08-2024 MCHC (RBC) [Mass/Vol] 33.5 g/dL 32-36 [facility] Mean platelet volume determi nationOrdered By: Renard Burgos on 07-08-2024 Platelet mean volume (Bld) [Entitic vol] 11.1 fL 6.2-12.0 [facility] Monocyte percentageOrdered B y: Renard Burgos on 07-08-2024 Monocytes/100 WBC (Bld) 7.4 % 0-10 [facility] Neutrophil percentageOrdered By: Renard Burgos on 07-08-2024 Neutrophils/100 WBC (Bld) 70.3 % High 47-70 [facility] Nucleated red blood cell per centageOrdered By: Renard Burgos on 07-08-2024 Nucleated RBC/100 WBC (Bld) [Ratio] 0 % 0-5 [facility] Platelet countOrdered By: Garrick Bhatt on 07-08-2024 Platelets (Bld) [#/Vol] 207 10*3/uL 150-450 [facility] RBC Auto (Bld) [#/Vol]Ordere d By: Renard Burgos on 07-08-2024 RBC (Bld) [#/Vol] 4.46 10*6/uL Low 4.6-6.2 [facility] White blood cell (WBC) count Ordered By: Renard Burgos on 07-08-2024 WBC (Bld) [#/Vol] 10.3 10*3/uL 4.4-11.0 [facility] Absolute lymphocyte countOrd ered By: Renard Burgos on 07-01-2024 Lymphocytes Auto (Unsp spec) [#/Vol] 2.03 10*3/uL 0.83-4.51 [facility] Absolute neutrophil countOrd ered By: Renard Burgos on 07-01-2024 Neutrophils (Bld) [#/Vol] 7.0 10*3/uL 2.0-7.7 [facility] Automated lymphocyte count a s percentage of total leukocytesOrdered By: Renard Burgos on 07-01-2024 Lymphocytes/100 WBC Auto (Unsp spec) 20.3 % 19-41 [facility] Basophil percentageOrdered B y: Renard Burgos on 07-01-2024 Basophils/100 WBC (Bld) 0.6 % 0-1 [facility] CBC W/Diff, Automatedon Absolute Lymph 2.03 X10 3/uL Normal 0.83-4.51 [facility] Comment on above: Order Comment: 109 Performed By: #### L 100.0100 ####[facility] [address] [place], [address] Absolute Neut 7.0 X10 3/uL Normal 2.0-7.7 [facility] Comment on above: Order Comment: 109 Performed By: #### L 100.0100 ####[facility] [address] [place], [address] Basophils/100 WBC (Bld) 0.6 % Normal 0-1 [facility] Comment on above: Order Comment: 109 Performed By: #### L 100.0100 ####[facility] [address] [place], [address] Eosinophils/100 WBC (Bld) 1.3 % Normal 0-5 [facility] Comment on above: Order Comment: 109 Performed By: #### L 100.0100 ####[facility] [address] [place], [address] Erythrocyte distribution width (RBC) [Ratio] 13.1 % Normal 11.6-14.6 [facility] Comment on above: Order Comment: 109 Performed By: #### L 100.0100 ####[facility] [address] [place], [address] Hematocrit (Bld) [Volume fraction] 41.7 % Normal 40-54 [facility] Comment on above: Order Comment: 109 Performed By: #### L 100.0100 ####[facility] [address] [place], [address] Hemoglobin (Bld) [Mass/Vol] 13.6 g/dL Normal 13.0-16.5 [facility] Comment on above: Order Comment: 109 Performed By: #### L 100.0100 ####[facility] [address] [place], [address] IG% 0.500 Normal 0.0-0.9 [facility] Comment on above: Order Comment: 109 Result Comment: IG% - Immature Granulocytes (promyelocytes, myelocytes andmetamyelocytes) > 1% indicates that a LEFT SHIFT is Present. Performed By: #### L 100.0100 ####[facility] [address] [place], [address] Lymphocytes/100 WBC (Bld) 20.3 % Normal 19-41 [facility] Comment on above: Order Comment: 109 Performed By: #### L 100.0100 ####[facility] [address] [place], [address] MCH (RBC) [Entitic mass] 29.6 pg Normal 27.0-32.0 [facility] Comment on above: Order Comment: 109 Performed By: #### L 100.0100 ####[facility] [address] [place], [address] MCHC (RBC) [Mass/Vol] 32.6 g/dL Normal 32-36 [facility] Comment on above: Order Comment: 109 Performed By: #### L 100.0100 ####[facility] [address] [place], [address] MCV (RBC) [Entitic vol] 90.8 fL Normal 80-94 [facility] Comment on above: Order Comment: 109 Performed By: #### L 100.0100 ####[facility] [address] [place], [address] Monocytes/100 WBC (Bld) 6.8 % Normal 0-10 [facility] Comment on above: Order Comment: 109 Performed By: #### L 100.0100 ####[facility] [address] [place], [address] Neutrophils/100 WBC (Bld) 70.5 % High 47-70 [facility] Comment on above: Order Comment: 109 Performed By: #### L 100.0100 ####[facility] [address] [place], [address] Nucleated RBC (Bld) [#/Vol] 0 10*3/uL Normal 0-5 [facility] Comment on above: Order Comment: 109 Performed By: #### L 100.0100 ####[facility] [address] [place], [address] Platelet mean volume (Bld) [Entitic vol] 11.0 fL Normal 6.2-12.0 [facility] Comment on above: Order Comment: 109 Performed By: #### L 100.0100 ####[facility] [address] [place] [place], [address] Platelets (Bld) [#/Vol] 208 10*3/uL Normal 150-450 [facility] Comment on above: Order Comment: 109 Performed By: #### L 100.0100 ####[facility] [address] [place], [address] RBC (Bld) [#/Vol] 4.59 10*6/uL Low 4.6-6.2 [facility] Comment on above: Order Comment: 109 Performed By: #### L 100.0100 ####[facility] [address] [place], [address] RDW SD 42.8 fl Normal 35.1-43.9 [facility] Comment on above: Order Comment: 109 Performed By: #### L 100.0100 ####[facility] [address] [place], [address] WBC (Bld) [#/Vol] 10.0 10*3/uL Normal 4.4-11.0 [facility] Comment on above: Order Comment: 109 Performed By: #### L 100.0100 ####[facility] [address] [place], [address] Eosinophil percentageOrdered By: Renard Burgos on 07-01-2024 Eosinophils/100 WBC (Bld) 1.3 % 0-5 [facility] Erythrocyte distribution wid th ratioOrdered By: Renard Burgos on 07-01-2024 Erythrocyte distribution width (RBC) [Ratio] 13.1 % 11.6-14.6 [facility] Erythrocyte distribution wid th standard deviationOrdered By: Renard Burgos on 07-01-2024 Erythrocyte distribution width (RBC) [Entitic vol] 42.8 fL 35.1-43.9 [facility] Erythrocyte distribution width (RBC) [Ratio] 42.8 fl 35.1-43.9 [facility] Hematocrit Auto (Bld) [Volum e fraction]Ordered By: Renard Burgos on 07-01-2024 Hematocrit (Bld) [Volume fraction] 41.7 % 40-54 [facility] Hemoglobin measurementOrdere d By: Renard Burgos on 07-01-2024 Hemoglobin (Bld) [Mass/Vol] 13.6 g/dL 13.0-16.5 [facility] Immature granulocytes/100 WB C Auto (Bld)Ordered By: Renard Burgos on 07-01-2024 Immature granulocytes/100 WBC (Bld) 0.500 % 0.0-0.9 [facility] Comment on above: IG% - Immature Granu locytes (promyelocytes, myelocytes and metamyelocytes) > 1% indicates that a LEFT SHIFT is Present. Lymphocytes Auto (Unsp spec) [#/Vol]Ordered By: Renard Burgos on 07-01-2024 Lymphocytes (Bld) [#/Vol] 2.03 10*3/uL 0.83-4.51 [facility] Lymphocytes/100 WBC Auto (Un sp spec)Ordered By: Renrad Burgos on 07-01-2024 Lymphocytes/100 WBC (Bld) 20.3 % 19-41 [facility] MCV (mean corpuscular volume ) determinationOrdered By: Renard Burgos on 07-01-2024 MCV (RBC) [Entitic vol] 90.8 fL 80-94 [facility] Mean corpuscular hemoglobin (MCH) determinationOrdered By: Renard Burgos on 07-01-2024 MCH (RBC) [Entitic mass] 29.6 pg 27.0-32.0 [facility] Mean corpuscular hemoglobin concentration (MCHC) determinationOrdered By: Renard Burgos on 07-01-2024 MCHC (RBC) [Mass/Vol] 32.6 g/dL 32-36 [facility] Mean platelet volume determi nationOrdered By: Renard Burgos on 07-01-2024 Platelet mean volume (Bld) [Entitic vol] 11.0 fL 6.2-12.0 [facility] Monocyte percentageOrdered B y: Renard Burgos on 07-01-2024 Monocytes/100 WBC (Bld) 6.8 % 0-10 [facility] Neutrophil percentageOrdered By: Renard Burgos on 07-01-2024 Neutrophils/100 WBC (Bld) 70.5 % High 47-70 [facility] Nucleated red blood cell per centageOrdered By: Renard Burgos on 07-01-2024 Nucleated RBC/100 WBC (Bld) [Ratio] 0 % 0-5 [facility] Platelet countOrdered By: Garrick Bhatt on 07-01-2024 Platelets (Bld) [#/Vol] 208 10*3/uL 150-450 [facility] RBC Auto (Bld) [#/Vol]Ordere d By: Renard Burgos on 07-01-2024 RBC (Bld) [#/Vol] 4.59 10*6/uL Low 4.6-6.2 [facility] White blood cell (WBC) count Ordered By: Renard Burgos on 07-01-2024 WBC (Bld) [#/Vol] 10.0 10*3/uL 4.4-11.0 [facility] Urine Cultureon 06-30-2024 URC Normal [facility] Comment on above: Performed By: #### M 100.2200, L400.0001 ####[facility] [address] [place], [place], [id number] Bilirubin Test strip Ql (U)O rdered By: Renard Burgos on 06-27-2024 Bilirubin Ql (U) Negative Negative [facility] Epithelial cells.squamous LM Ql (Urine sed)Ordered By: Renard Burgos on 06-27-2024 Epithelial cells.squamous LM.HPF (Urine sed) [#/Area] 0 /[HPF] 0-5 [facility] Glucose Ql (U)Ordered By: Garrick Bhatt on 06-27-2024 Urine Glucose (UA) Normal mg/dl Normal [facility] Ketones Test strip Ql (U)Ord ered By: Renard Burgos on 06-27-2024 Ketones Ql (U) Negative Negative [facility] Microscopic analysis of urin e for red blood cells (RBC)Ordered By: Renard Burgos on 06-27-2024 Microscopic analysis of urine for red blood cells (RBC) 0 SEEN /hpf 0-5 [facility] Urine RBC 0 SEEN /hpf 0-5 [facility] Mucus LM Ql (Urine sed)Order ed By: Renard Burgos on 06-27-2024 Mucus Ql (Urine sed) 0 SEEN /hpf [facility] Nitrite Test strip Ql (U)Ord ered By: Renard Burgos on 06-27-2024 Nitrite Ql (U) Negative Negative [facility] Protein Test strip Ql (U)Ord ered By: Renard Burgos on 06-27-2024 Protein Ql (U) 15 mg/dl High Negative [facility] Squamous epithelial cells de tection in urine sediment by light microscopyOrdered By: Renard Burgos on 06-27-2024 Epithelial cells.squamous LM Ql (Urine sed) 0 SEEN /hpf 0-5 [facility] Urinalysis, Completeon 06-27 RBC 0 SEEN Normal 0-5 [facility] Comment on above: Order Comment: ARCHANA TER SPECIMEN Performed By: #### M 100.2200, L400.0001 ####[facility] [address] [place], [address] Urine blood detectionOrdered By: Renard Burgos on 06-27-2024 Urine Occult Blood Negative Negative [facility] Urine clarityOrdered By: Lyubov Burgos on 06-27-2024 Clarity (U) Clear Clear [facility] Urine color determinationOrd ered By: Renard Burgos on 06-27-2024 Color (U) Yellow Yellow [facility] Urine cultureOrdered By: Lyubov Burgos on 06-27-2024 Bacteria identified Cx Nom (U) Staphylococcus warneri Abnormal [facility] Bacteria identified Cx Nom (U) Aerococcus viridans. Abnormal [facility] Bacteria identified Cx Nom (U) Presumptive C albicans Abnormal [facility] Bacteria identified Cx Nom (U) Staphylococcus warneri Abnormal [facility] Bacteria identified Cx Nom (U) Aerococcus viridans. Abnormal [facility] Bacteria identified Cx Nom (U) Presumptive C albicans Abnormal [facility] Urine glucose detectionOrder ed By: Renard Burgos on 06-27-2024 Glucose Ql (U) Normal mg/dl Normal [facility] Urine leukocyte esterase det ection by dipstickOrdered By: Renard Burgos on 06-27-2024 Leukocyte esterase Test strip Ql (U) Negative Negative [facility] Urine pHOrdered By: Renard ocampo on 06-27-2024 pH (U) 7.0 [pH] 5.0 - 8.0 [facility] Urine sediment bacteria coun t by microscopy (number/high power field)Ordered By: Renard Burgos on 06-27-2024 Bacteria LM.HPF (Urine sed) [#/Area] 0 /[HPF] None Seen [facility] Urine specific gravity measu rementOrdered By: Renard Burgos on 06-27-2024 Specific gravity (U) [Rel density] 1.010 1.002-1.030 [facility] Urine urobilinogen measureme ntOrdered By: Renard Burgos on 06-27-2024 Urobilinogen Ql (U) 4 mg/dl High Normal [facility] Urobilinogen Ql (U)Ordered B y: Renard Burgos on 06-27-2024 Urobilinogen (U) [Mass/Vol] 4 mg/dL High Normal [facility] White blood cell countOrdere d By: Renard Burgos on 06-27-2024 Urine WBC 0 SEEN /hpf 0-5 [facility] White blood cell count 0 SEEN /hpf 0-[address] [facility] [address] CHEST WO IV CONTRASTon CT CHEST [...] AM EST Cough x 2months Normal [facility] CT Chest WO contraston 06-26 Nonspecific groundglass densities are noted in the bilateral lower lobes. 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 [facility] Maria Eugenia Ruiz MD - [...] Electronically Signed Date/Time: 06/26/2024 8:07 AM EST [employer] CT Chest WO contrastOrdered By: Maria Eugenia Ruiz on 06-26-2024 [employer] Work Phone: Absolute lymphocyte countOrd ered By: Renard Burgos on 06-24-2024 Lymphocytes Auto (Unsp spec) [#/Vol] 1.65 10*3/uL 0.83-4.51 [facility] Absolute neutrophil countOrd ered By: Renard Burgos on 06-24-2024 Neutrophils (Bld) [#/Vol] 10.2 10*3/uL High 2.0-7.7 [facility] Automated lymphocyte count a s percentage of total leukocytesOrdered By: Renard Burgos on 06-24-2024 Lymphocytes/100 WBC Auto (Unsp spec) 12.8 % Low 19-41 [facility] Basic Metabolic Profile (BMP )on 06-24-2024 BUN/CRE 24.9 RATIO High 10-20 [facility] Comment on above: Order Comment: 109.1 Performed By: #### L 100.0100, L500.2500 ####[facility] [address] [place], [address] CA,Total 8.3 mg/dL Low 8.5-10.1 [facility] Comment on above: Order Comment: 109.1 Performed By: #### L 100.0100, L500.2500 ####[facility] [address] [place], [address] Chloride [Moles/Vol] 107 mmol/L Normal 98-107 [facility] Comment on above: Order Comment: 109.1 Performed By: #### L 100.0100, L500.2500 ####[facility] [address] [place], [address] CO2 [Moles/Vol] 24.0 mmol/L Normal 21.0-32.0 [facility] Comment on above: Order Comment: 109.1 Performed By: #### L 100.0100, L500.2500 ####[facility] [address] [place], [address] Creatinine [Mass/Vol] 0.60 mg/dL Low 0.70-1.30 [facility] Comment on above: Order Comment: 109.1 Result Comment: The validity of the calculated GFR GFRAA in patients over70 years has not been determined. Clinical correlation isessential. Performed By: #### L 100.0100, L500.2500 ####[facility] [address] [place], [address] EST GFR - AA 172 mL/min Normal >60 [facility] Comment on above: Order Comment: 109.1 Result Comment: Afri can Fijian GFR Calc Performed By: #### L 100.0100, L500.2500 ####[facility] [address] [place], [address] GAP 8 Normal 5-15 [facility] Comment on above: Order Comment: 109.1 Performed By: #### L 100.0100, L500.2500 ####[facility] [address] [place], [address] GFR/1.73 sq M.predicted among non-blacks MDRD (S/P/Bld) [Vol rate/Area] 142 mL/min/{1.73_m2} Normal >60 [facility] Comment on above: Order Comment: 109.1 Result Comment: Non- GFR Calc Performed By: #### L 100.0100, L500.2500 ####[facility] [address] [place], [address] Glucose [Mass/Vol] 101 mg/dL Normal 74-106 [facility] Comment on above: Order Comment: 109.1 Result Comment: Fast ing Glucose result from 100 to 125 mg/dLsuggests IMPAIRED HOMEOSTASIS per A.D.A. criteria. Performed By: #### L 100.0100, L500.2500 ####[facility] [address] [place], [address] Potassium [Moles/Vol] 4.1 mmol/L Normal 3.5-5.1 [facility] Comment on above: Order Comment: 109.1 Performed By: #### L 100.0100, L500.2500 ####[facility] [address] [place], [address] Sodium [Moles/Vol] 139 mmol/L Normal 136-145 [facility] Comment on above: Order Comment: 109.1 Performed By: #### L 100.0100, L500.2500 ####[facility] [address] [place], [address] Urea nitrogen [Mass/Vol] 15 mg/dL Normal 7-18 [facility] Comment on above: Order Comment: 109.1 Performed By: #### L 100.0100, L500.2500 ####[facility] [address] [place], [address] Basophil percentageOrdered B y: Renard Burgos on 06-24-2024 Basophils/100 WBC (Bld) 0.5 % 0-1 [facility] Blood urea nitrogen (BUN)/cr eatinine ratioOrdered By: Renard Burgos on 06-24-2024 Urea nitrogen/Creatinine [Mass ratio] 24.9 mg/mg High 10-20 [facility] CBC W/Diff, Automatedon -2 Absolute Lymph 1.65 X10 3/uL Normal 0.83-4.51 [facility] Comment on above: Order Comment: 109.1 Performed By: #### L 100.0100, L500.2500 ####[facility] [address] [place], [address] Absolute Neut 10.2 X10 3/uL High 2.0-7.7 [facility] Comment on above: Order Comment: 109.1 Performed By: #### L 100.0100, L500.2500 ####[facility] [address] [place], [address] Basophils/100 WBC (Bld) 0.5 % Normal 0-1 [facility] Comment on above: Order Comment: 109.1 Performed By: #### L 100.0100, L500.2500 ####[facility] [address] [place], [address] Eosinophils/100 WBC (Bld) 0.8 % Normal 0-5 [facility] Comment on above: Order Comment: 109.1 Performed By: #### L 100.0100, L500.2500 ####[facility] [address] [place], [address] Erythrocyte distribution width (RBC) [Ratio] 13.2 % Normal 11.6-14.6 [facility] Comment on above: Order Comment: 109.1 Performed By: #### L 100.0100, L500.2500 ####[facility] [address] [place], [address] Hematocrit (Bld) [Volume fraction] 41.8 % Normal 40-54 [facility] Comment on above: Order Comment: 109.1 Performed By: #### L 100.0100, L500.2500 ####[facility] [address] [place], [address] Hemoglobin (Bld) [Mass/Vol] 13.6 g/dL Normal 13.0-16.5 [facility] Comment on above: Order Comment: 109.1 Performed By: #### L 100.0100, L500.2500 ####[facility] [address] [place], [address] IG% 0.500 Normal 0.0-0.9 [facility] Comment on above: Order Comment: 109.1 Result Comment: IG% - Immature Granulocytes (promyelocytes, myelocytes andmetamyelocytes) > 1% indicates that a LEFT SHIFT is Present. Performed By: #### L 100.0100, L500.2500 ####[facility] [address] [place], [address] Lymphocytes/100 WBC (Bld) 12.8 % Low 19-41 [facility] Comment on above: Order Comment: 109.1 Performed By: #### L 100.0100, L500.2500 ####[facility] [address] [place], [address] MCH (RBC) [Entitic mass] 30.2 pg Normal 27.0-32.0 [facility] Comment on above: Order Comment: 109.1 Performed By: #### L 100.0100, L500.2500 ####[facility] [address] [place], [address] MCHC (RBC) [Mass/Vol] 32.5 g/dL Normal 32-36 [facility] Comment on above: Order Comment: 109.1 Performed By: #### L 100.0100, L500.2500 ####[facility] [address] [place], [address] MCV (RBC) [Entitic vol] 92.7 fL Normal 80-94 [facility] Comment on above: Order Comment: 109.1 Performed By: #### L 100.0100, L500.2500 ####[facility] [address] [place], [address] Monocytes/100 WBC (Bld) 6.4 % Normal 0-10 [facility] Comment on above: Order Comment: 109.1 Performed By: #### L 100.0100, L500.2500 ####[facility] [address] [place], [address] Neutrophils/100 WBC (Bld) 79.0 % High 47-70 [facility] Comment on above: Order Comment: 109.1 Performed By: #### L 100.0100, L500.2500 ####[facility] [address] [place], [address] Nucleated RBC (Bld) [#/Vol] 0 10*3/uL Normal 0-5 [facility] Comment on above: Order Comment: 109.1 Performed By: #### L 100.0100, L500.2500 ####[facility] [address] [place], [address] Platelet mean volume (Bld) [Entitic vol] 11.3 fL Normal 6.2-12.0 [facility] Comment on above: Order Comment: 109.1 Performed By: #### L 100.0100, L500.2500 ####[facility] [address] [place], [address] Platelets (Bld) [#/Vol] 171 10*3/uL Normal 150-450 [facility] Comment on above: Order Comment: 109.1 Performed By: #### L 100.0100, L500.2500 ####[facility] [address] [place], [address] RBC (Bld) [#/Vol] 4.51 10*6/uL Low 4.6-6.2 [facility] Comment on above: Order Comment: 109.1 Performed By: #### L 100.0100, L500.2500 ####[facility] [address] [place], [address] RDW SD 45.1 fl High 35.1-43.9 [facility] Comment on above: Order Comment: 109.1 Performed By: #### L 100.0100, L500.2500 ####[facility] [address] [place], [address] WBC (Bld) [#/Vol] 12.9 10*3/uL High 4.4-11.0 [facility] Comment on above: Order Comment: 109.1 Performed By: #### L 100.0100, L500.2500 ####[facility] [address] [place], [address] CT Chest WO contraston 06-24 Radiology Study observation (narrative) Estefania smith Carbon dioxide measurementOr dered By: Renard Burgos on 06-24-2024 CO2 [Moles/Vol] 24.0 mmol/L 21.0-32.0 [facility] Chloride measurementOrdered By: Renard Burgos on 06-24-2024 Chloride [Moles/Vol] 107 mmol/L 98-107 [facility] Eosinophil percentageOrdered By: Renard Burgos on 06-24-2024 Eosinophils/100 WBC (Bld) 0.8 % 0-5 [facility] Erythrocyte distribution wid th ratioOrdered By: Renard Burgos on 06-24-2024 Erythrocyte distribution width (RBC) [Ratio] 13.2 % 11.6-14.6 [facility] Erythrocyte distribution wid th standard deviationOrdered By: Renard Burgos on 06-24-2024 Erythrocyte distribution width (RBC) [Entitic vol] 45.1 fL High 35.1-43.9 [facility] Erythrocyte distribution width (RBC) [Ratio] 45.1 fl High 35.1-43.9 [facility] Estimated glomerular filtrat ion rate (GFR) AmericanOrdered By: Renard Burgos on 06-24-2024 Estimated GFR (MDRD) Amer 172 mL/min >60 [facility] Comment on above: GFR Calc Glomerular filtration rate ( GFR) estimationOrdered By: Renard Burgos on 06-24-2024 Estimated GFR (MDRD) Non-Af Amer 142 mL/min >60 [facility] Comment on above: Non- GFR Calc GFR/1.73 sq M.predicted among non-blacks MDRD (S/P/Bld) [Vol rate/Area] 142 mL/min/{1.73_m2} >60 [facility] Comment on above: Non- GFR Calc Glucose measurementOrdered B y: Renard Burgos on 06-24-2024 Glucose [Mass/Vol] 101 mg/dL 74-106 [facility] Comment on above: Fasting Glucose resu lt from 100 to 125 mg/dL suggests IMPAIRED HOMEOSTASIS per A.D.A. criteria. Hematocrit Auto (Bld) [Volum e fraction]Ordered By: Renard Burgos on 06-24-2024 Hematocrit (Bld) [Volume fraction] 41.8 % 40-54 [facility] Hemoglobin measurementOrdere d By: Renard Burgos on 06-24-2024 Hemoglobin (Bld) [Mass/Vol] 13.6 g/dL 13.0-16.5 [facility] Immature granulocytes/100 WB C Auto (Bld)Ordered By: Renard Burgos on 06-24-2024 Immature granulocytes/100 WBC (Bld) 0.500 % 0.0-0.9 [facility] Comment on above: IG% - Immature Granu locytes (promyelocytes, myelocytes and metamyelocytes) > 1% indicates that a LEFT SHIFT is Present. Lymphocytes Auto (Unsp spec) [#/Vol]Ordered By: Renard Burgos on 06-24-2024 Lymphocytes (Bld) [#/Vol] 1.65 10*3/uL 0.83-4.51 [facility] Lymphocytes/100 WBC Auto (Un sp spec)Ordered By: Renard Burgos on 06-24-2024 Lymphocytes/100 WBC (Bld) 12.8 % Low 19-41 [facility] MCV (mean corpuscular volume ) determinationOrdered By: Renard Burgos on 06-24-2024 MCV (RBC) [Entitic vol] 92.7 fL 80-94 [facility] Mean corpuscular hemoglobin (MCH) determinationOrdered By: Renard Burgos on 06-24-2024 MCH (RBC) [Entitic mass] 30.2 pg 27.0-32.0 [facility] Mean corpuscular hemoglobin concentration (MCHC) determinationOrdered By: Renard Burgos on 06-24-2024 MCHC (RBC) [Mass/Vol] 32.5 g/dL 32-36 [facility] Mean platelet volume determi nationOrdered By: Renard Burgos on 06-24-2024 Platelet mean volume (Bld) [Entitic vol] 11.3 fL 6.2-12.0 [facility] Monocyte percentageOrdered B y: Renard Burgos on 06-24-2024 Monocytes/100 WBC (Bld) 6.4 % 0-10 [facility] Neutrophil percentageOrdered By: Renard Burgos on 06-24-2024 Neutrophils/100 WBC (Bld) 79.0 % High 47-70 [facility] Nucleated red blood cell per centageOrdered By: Renard Burgos on 06-24-2024 Nucleated RBC/100 WBC (Bld) [Ratio] 0 % 0-5 [facility] Platelet countOrdered By: Garrick Bhatt on 06-24-2024 Platelets (Bld) [#/Vol] 171 10*3/uL 150-450 [facility] Potassium measurementOrdered By: Renard Burgos on 06-24-2024 Potassium [Moles/Vol] 4.1 mmol/L 3.5-5.1 [facility] RBC Auto (Bld) [#/Vol]Ordere d By: Renard Burgos on 06-24-2024 RBC (Bld) [#/Vol] 4.51 10*6/uL Low 4.6-6.2 [facility] Serum anion gap measurementO rdered By: Renard Burgos on 06-24-2024 Anion gap [Moles/Vol] 8 mmol/L 5-15 [facility] Serum or plasma calcium gordy urement (mass/volume)Ordered By: Renard Burgos on 06-24-2024 Calcium [Mass/Vol] 8.3 mg/dL Low 8.5-10.1 [facility] Serum or plasma creatinine m easurement (mass/volume)Ordered By: Renard Burgos on 06-24-2024 Creatinine [Mass/Vol] 0.60 mg/dL Low 0.70-1.30 [facility] Comment on above: The validity of the calculated GFR & GFRAA in patients over 70 years has not been determined. Clinical correlation is essential. Serum or plasma urea nitroge n measurement (mass/volume)Ordered By: Renard Burgos on 06-24-2024 Urea nitrogen [Mass/Vol] 15 mg/dL 7- [facility] Sodium levelOrdered By: Lamine Burgos on 06-24-2024 Sodium [Moles/Vol] 139 mmol/L 136-145 [facility] White blood cell (WBC) count Ordered By: Renard Burgos on 06-24-2024 WBC (Bld) [#/Vol] 12.9 10*3/uL High 4.4-11.0 [facility] Absolute lymphocyte countOrd ered By: Renard Burgos on 06-17-2024 Lymphocytes Auto (Unsp spec) [#/Vol] 2.00 10*3/uL 0.83-4.51 [facility] Absolute neutrophil countOrd ered By: Renard Burgos on 06-17-2024 Neutrophils (Bld) [#/Vol] 5.1 10*3/uL 2.0-7.7 [facility] Automated lymphocyte count a s percentage of total leukocytesOrdered By: Renard Burgos on 06-17-2024 Lymphocytes/100 WBC Auto (Unsp spec) 24.5 % 19-41 [facility] Basophil percentageOrdered B y: Renard Burgos on 06-17-2024 Basophils/100 WBC (Bld) 1.1 % High 0-1 [facility] CBC W/Diff, Automatedon 06-01 Absolute Lymph 2.00 X10 3/uL Normal 0.83-4.51 [facility] Comment on above: Order Comment: 109-1 Performed By: #### L 100.0100 ####[facility] [address] [place], [address] Absolute Neut 5.1 X10 3/uL Normal 2.0-7.7 [facility] Comment on above: Order Comment: 109-1 Performed By: #### L 100.0100 ####[facility] [address] [place], [address] Basophils/100 WBC (Bld) 1.1 % High 0-1 [facility] Comment on above: Order Comment: 109-1 Performed By: #### L 100.0100 ####[facility] [address] [place], [address] Eosinophils/100 WBC (Bld) 3.4 % Normal 0-5 [facility] Comment on above: Order Comment: 109-1 Performed By: #### L 100.0100 ####[facility] [address] [place], [address] Erythrocyte distribution width (RBC) [Ratio] 13.3 % Normal 11.6-14.6 [facility] Comment on above: Order Comment: 109-1 Performed By: #### L 100.0100 ####[facility] [address] [place], [address] Hematocrit (Bld) [Volume fraction] 39.3 % Low 40-54 [facility] Comment on above: Order Comment: 109-1 Performed By: #### L 100.0100 ####[facility] [address] [place], [address] Hemoglobin (Bld) [Mass/Vol] 12.8 g/dL Low 13.0-16.5 [facility] Comment on above: Order Comment: 109-1 Performed By: #### L 100.0100 ####[facility] [address] [place], [address] IG% 0.200 Normal 0.0-0.9 [facility] Comment on above: Order Comment: 109-1 Result Comment: IG% - Immature Granulocytes (promyelocytes, myelocytes andmetamyelocytes) > 1% indicates that a LEFT SHIFT is Present. Performed By: #### L 100.0100 ####[facility] [address] [place], [address] Lymphocytes/100 WBC (Bld) 24.5 % Normal 19-41 [facility] Comment on above: Order Comment: 109-1 Performed By: #### L 100.0100 ####[facility] [address] [place], [address] MCH (RBC) [Entitic mass] 29.6 pg Normal 27.0-32.0 [facility] Comment on above: Order Comment: 109-1 Performed By: #### L 100.0100 ####[facility] [address] [place], [address] MCHC (RBC) [Mass/Vol] 32.6 g/dL Normal 32-36 [facility] Comment on above: Order Comment: 109-1 Performed By: #### L 100.0100 ####[facility] [address] [place], [address] MCV (RBC) [Entitic vol] 90.8 fL Normal 80-94 [facility] Comment on above: Order Comment: 109-1 Performed By: #### L 100.0100 ####[facility] [address] [place], [address] Monocytes/100 WBC (Bld) 8.8 % Normal 0-10 [facility] Comment on above: Order Comment: 109-1 Performed By: #### L 100.0100 ####[facility] [address] [place], [address] Neutrophils/100 WBC (Bld) 62.0 % Normal 47-70 [facility] Comment on above: Order Comment: 109-1 Performed By: #### L 100.0100 ####[facility] [address] [place], [address] Nucleated RBC (Bld) [#/Vol] 0 10*3/uL Normal 0-5 [facility] Comment on above: Order Comment: 109-1 Performed By: #### L 100.0100 ####[facility] [address] [place], [address] Platelet mean volume (Bld) [Entitic vol] 10.9 fL Normal 6.2-12.0 [facility] Comment on above: Order Comment: 109-1 Performed By: #### L 100.0100 ####[facility] [address] [place], [address] Platelets (Bld) [#/Vol] 218 10*3/uL Normal 150-450 [facility] Comment on above: Order Comment: 109-1 Performed By: #### L 100.0100 ####[facility] [address] [place], [address] RBC (Bld) [#/Vol] 4.33 10*6/uL Low 4.6-6.2 [facility] Comment on above: Order Comment: 109-1 Performed By: #### L 100.0100 ####[facility] [address] [place], [address] RDW SD 44.0 fl High 35.1-43.9 [facility] Comment on above: Order Comment: 109-1 Performed By: #### L 100.0100 ####[facility] [address] [place], [address] WBC (Bld) [#/Vol] 8.2 10*3/uL Normal 4.4-11.0 [facility] Comment on above: Order Comment: 109-1 Performed By: #### L 100.0100 ####[facility] [address] [place], [address] Eosinophil percentageOrdered By: Renard Burgos on 06-17-2024 Eosinophils/100 WBC (Bld) 3.4 % 0-5 [facility] Erythrocyte distribution wid th ratioOrdered By: Renard Burgos on 06-17-2024 Erythrocyte distribution width (RBC) [Ratio] 13.3 % 11.6-14.6 [facility] Erythrocyte distribution wid th standard deviationOrdered By: Renard Burgos on 06-17-2024 Erythrocyte distribution width (RBC) [Entitic vol] 44.0 fL High 35.1-43.9 [facility] Erythrocyte distribution width (RBC) [Ratio] 44.0 fl High 35.1-43.9 [facility] Hematocrit Auto (Bld) [Volum e fraction]Ordered By: Renard Burgos on 06-17-2024 Hematocrit (Bld) [Volume fraction] 39.3 % Low 40-54 [facility] Hemoglobin measurementOrdere d By: Renard Burgos on 06-17-2024 Hemoglobin (Bld) [Mass/Vol] 12.8 g/dL Low 13.0-16.5 [facility] Immature granulocytes/100 WB C Auto (Bld)Ordered By: Renard Burgos on 06-17-2024 Immature granulocytes/100 WBC (Bld) 0.200 % 0.0-0.9 [facility] Comment on above: IG% - Immature Granu locytes (promyelocytes, myelocytes and metamyelocytes) > 1% indicates that a LEFT SHIFT is Present. Lymphocytes Auto (Unsp spec) [#/Vol]Ordered By: Renard Burgos on 06-17-2024 Lymphocytes (Bld) [#/Vol] 2.00 10*3/uL 0.83-4.51 [facility] Lymphocytes/100 WBC Auto (Un sp spec)Ordered By: Renard Burgos on 06-17-2024 Lymphocytes/100 WBC (Bld) 24.5 % 19-41 [facility] MCV (mean corpuscular volume ) determinationOrdered By: Renard Burgos on 06-17-2024 MCV (RBC) [Entitic vol] 90.8 fL 80-94 [facility] Mean corpuscular hemoglobin (MCH) determinationOrdered By: Renard Burgos on 06-17-2024 MCH (RBC) [Entitic mass] 29.6 pg 27.0-32.0 [facility] Mean corpuscular hemoglobin concentration (MCHC) determinationOrdered By: Renard Burgos on 06-17-2024 MCHC (RBC) [Mass/Vol] 32.6 g/dL 32-36 [facility] Mean platelet volume determi nationOrdered By: Renard Burgos on 06-17-2024 Platelet mean volume (Bld) [Entitic vol] 10.9 fL 6.2-12.0 [facility] Monocyte percentageOrdered B y: Renard Burgos on 06-17-2024 Monocytes/100 WBC (Bld) 8.8 % 0-10 [facility] Neutrophil percentageOrdered By: Renard Burgos on 06-17-2024 Neutrophils/100 WBC (Bld) 62.0 % 47-70 [facility] Nucleated red blood cell per centageOrdered By: Renard Burgos on 06-17-2024 Nucleated RBC/100 WBC (Bld) [Ratio] 0 % 0-5 [facility] Platelet countOrdered By: Garrick Bhatt on 06-17-2024 Platelets (Bld) [#/Vol] 218 10*3/uL 150-450 [facility] RBC Auto (Bld) [#/Vol]Ordere d By: Renard Burgos on 06-17-2024 RBC (Bld) [#/Vol] 4.33 10*6/uL Low 4.6-6.2 [facility] White blood cell (WBC) count Ordered By: Renard Burgos on 06-17-2024 WBC (Bld) [#/Vol] 8.2 10*3/uL 4.4-11.0 [facility] Absolute lymphocyte countOrd ered By: Renard Burgos on 06-10-2024 Lymphocytes Auto (Unsp spec) [#/Vol] 2.38 10*3/uL 0.83-4.51 [facility] Absolute neutrophil countOrd ered By: Renard Burgos on 06-10-2024 Neutrophils (Bld) [#/Vol] 5.3 10*3/uL 2.0-7.7 [facility] Automated lymphocyte count a s percentage of total leukocytesOrdered By: Renard Burgos on 06-10-2024 Lymphocytes/100 WBC Auto (Unsp spec) 27.5 % 19-41 [facility] Basophil percentageOrdered B y: Renard Burgos on 06-10-2024 Basophils/100 WBC (Bld) 0.7 % 0-1 [facility] CBC W/Diff, Automatedon 06-01 Absolute Lymph 2.38 X10 3/uL Normal 0.83-4.51 [facility] Comment on above: Order Comment: 109.1 Performed By: #### L 100.0100 ####[facility] [address] [place], [address] Absolute Neut 5.3 X10 3/uL Normal 2.0-7.7 [facility] Comment on above: Order Comment: 109.1 Performed By: #### L 100.0100 ####[facility] [address] [place], [address] Basophils/100 WBC (Bld) 0.7 % Normal 0-1 [facility] Comment on above: Order Comment: 109.1 Performed By: #### L 100.0100 ####[facility] [address] [place], [address] Eosinophils/100 WBC (Bld) 0.7 % Normal 0-5 [facility] Comment on above: Order Comment: 109.1 Performed By: #### L 100.0100 ####[facility] [address] [place], [address] Erythrocyte distribution width (RBC) [Ratio] 13.1 % Normal 11.6-14.6 [facility] Comment on above: Order Comment: 109.1 Performed By: #### L 100.0100 ####[facility] [address] [place], [address] Hematocrit (Bld) [Volume fraction] 41.1 % Normal 40-54 [facility] Comment on above: Order Comment: 109.1 Performed By: #### L 100.0100 ####[facility] [address] [place], [address] Hemoglobin (Bld) [Mass/Vol] 13.5 g/dL Normal 13.0-16.5 [facility] Comment on above: Order Comment: 109.1 Performed By: #### L 100.0100 ####[facility] [address] [place], [address] IG% 0.500 Normal 0.0-0.9 [facility] Comment on above: Order Comment: 109.1 Result Comment: IG% - Immature Granulocytes (promyelocytes, myelocytes andmetamyelocytes) > 1% indicates that a LEFT SHIFT is Present. Performed By: #### L 100.0100 ####[facility] [address] [place], [address] Lymphocytes/100 WBC (Bld) 27.5 % Normal 19-41 [facility] Comment on above: Order Comment: 109.1 Performed By: #### L 100.0100 ####[facility] [address] [place], [address] MCH (RBC) [Entitic mass] 30.1 pg Normal 27.0-32.0 [facility] Comment on above: Order Comment: 109.1 Performed By: #### L 100.0100 ####[facility] [address] [place], [address] MCHC (RBC) [Mass/Vol] 32.8 g/dL Normal 32-36 [facility] Comment on above: Order Comment: 109.1 Performed By: #### L 100.0100 ####[facility] [address] [place], [address] MCV (RBC) [Entitic vol] 91.7 fL Normal 80-94 [facility] Comment on above: Order Comment: 109.1 Performed By: #### L 100.0100 ####[facility] [address] [place], [address] Monocytes/100 WBC (Bld) 9.6 % Normal 0-10 [facility] Comment on above: Order Comment: 109.1 Performed By: #### L 100.0100 ####[facility] [address] [place], [address] Neutrophils/100 WBC (Bld) 61.0 % Normal 47-70 [facility] Comment on above: Order Comment: 109.1 Performed By: #### L 100.0100 ####[facility] [address] [place], [address] Nucleated RBC (Bld) [#/Vol] 0 10*3/uL Normal 0-5 [facility] Comment on above: Order Comment: 109.1 Performed By: #### L 100.0100 ####[facility] [address] [place], [address] Platelet mean volume (Bld) [Entitic vol] 11.0 fL Normal 6.2-12.0 [facility] Comment on above: Order Comment: 109.1 Performed By: #### L 100.0100 ####[facility] [address] [place], [address] Platelets (Bld) [#/Vol] 261 10*3/uL Normal 150-450 [facility] Comment on above: Order Comment: 109.1 Performed By: #### L 100.0100 ####[facility] [address] [place], [address] RBC (Bld) [#/Vol] 4.48 10*6/uL Low 4.6-6.2 [facility] Comment on above: Order Comment: 109.1 Performed By: #### L 100.0100 ####[facility] [address] [place], [address] RDW SD 43.2 fl Normal 35.1-43.9 [facility] Comment on above: Order Comment: 109.1 Performed By: #### L 100.0100 ####[facility] [address] [place], [address] WBC (Bld) [#/Vol] 8.6 10*3/uL Normal 4.4-11.0 [facility] Comment on above: Order Comment: 109.1 Performed By: #### L 100.0100 ####[facility] [address] [place], [address] Eosinophil percentageOrdered By: Renard Burgos on 06-10-2024 Eosinophils/100 WBC (Bld) 0.7 % 0-5 [facility] Erythrocyte distribution wid th ratioOrdered By: Renard Burgos on 06-10-2024 Erythrocyte distribution width (RBC) [Ratio] 13.1 % 11.6-14.6 [facility] Erythrocyte distribution wid th standard deviationOrdered By: Renard Burgos on 06-10-2024 Erythrocyte distribution width (RBC) [Entitic vol] 43.2 fL 35.1-43.9 [facility] Erythrocyte distribution width (RBC) [Ratio] 43.2 fl 35.1-43.9 [facility] Hematocrit Auto (Bld) [Volum e fraction]Ordered By: Renard Burgos on 06-10-2024 Hematocrit (Bld) [Volume fraction] 41.1 % 40-54 [facility] Hemoglobin measurementOrdere d By: Renard Burgos on 06-10-2024 Hemoglobin (Bld) [Mass/Vol] 13.5 g/dL 13.0-16.5 [facility] Immature granulocytes/100 WB C Auto (Bld)Ordered By: Renard Burgos on 06-10-2024 Immature granulocytes/100 WBC (Bld) 0.500 % 0.0-0.9 [facility] Comment on above: IG% - Immature Granu locytes (promyelocytes, myelocytes and metamyelocytes) > 1% indicates that a LEFT SHIFT is Present. Lymphocytes Auto (Unsp spec) [#/Vol]Ordered By: Renard Burgos on 06-10-2024 Lymphocytes (Bld) [#/Vol] 2.38 10*3/uL 0.83-4.51 [facility] Lymphocytes/100 WBC Auto (Un sp spec)Ordered By: Renard Burgos on 06-10-2024 Lymphocytes/100 WBC (Bld) 27.5 % 19-41 [facility] MCV (mean corpuscular volume ) determinationOrdered By: Renard Burgos on 06-10-2024 MCV (RBC) [Entitic vol] 91.7 fL 80-94 [facility] Mean corpuscular hemoglobin (MCH) determinationOrdered By: Renard Burgos on 06-10-2024 MCH (RBC) [Entitic mass] 30.1 pg 27.0-32.0 [facility] Mean corpuscular hemoglobin concentration (MCHC) determinationOrdered By: Renard Burgos on 06-10-2024 MCHC (RBC) [Mass/Vol] 32.8 g/dL 32-36 [facility] Mean platelet volume determi nationOrdered By: Renard Burgos on 06-10-2024 Platelet mean volume (Bld) [Entitic vol] 11.0 fL 6.2-12.0 [facility] Monocyte percentageOrdered B y: Renard Burgos on 06-10-2024 Monocytes/100 WBC (Bld) 9.6 % 0-10 [facility] Neutrophil percentageOrdered By: Renard Burgos on 06-10-2024 Neutrophils/100 WBC (Bld) 61.0 % 47-70 [facility] Nucleated red blood cell per centageOrdered By: Renard Burgos on 06-10-2024 Nucleated RBC/100 WBC (Bld) [Ratio] 0 % 0-5 [facility] Platelet countOrdered By: Garrick Bhatt on 06-10-2024 Platelets (Bld) [#/Vol] 261 10*3/uL 150-450 [facility] RBC Auto (Bld) [#/Vol]Ordere d By: Renard Burgos on 06-10-2024 RBC (Bld) [#/Vol] 4.48 10*6/uL Low 4.6-6.2 [facility] Urine Cultureon 06-10-2024 URC Normal [facility] Comment on above: Performed By: #### M 100.2200, L400.0001 ####[facility] [address] [place], [place], [address] White blood cell (WBC) count Ordered By: Renard Burgos on 06-10-2024 WBC (Bld) [#/Vol] 8.6 10*3/uL 4.4-11.0 [facility] Bilirubin Test strip Ql (U)O rdered By: Renard Burgos on 06-07-2024 Bilirubin Ql (U) Negative Negative [facility] CBC-Complete Blood Cnt No Di ffon 06-07-2024 Erythrocyte distribution width (RBC) [Ratio] 13.0 % Normal 11.6-14.6 [facility] Comment on above: Order Comment: 109-1 Performed By: #### L 100.0500 ####[facility] [address] [place], [address] Hematocrit (Bld) [Volume fraction] 39.3 % Low 40-54 [facility] Comment on above: Order Comment: 109-1 Performed By: #### L 100.0500 ####[facility] [address] [place], [address] Hemoglobin (Bld) [Mass/Vol] 13.0 g/dL Normal 13.0-16.5 [facility] Comment on above: Order Comment: 109-1 Performed By: #### L 100.0500 ####[facility] [address] [place], [address] MCH (RBC) [Entitic mass] 30.2 pg Normal 27.0-32.0 [facility] Comment on above: Order Comment: 109-1 Performed By: #### L 100.0500 ####[facility] [address] [place], [address] MCHC (RBC) [Mass/Vol] 33.1 g/dL Normal 32-36 [facility] Comment on above: Order Comment: 109-1 Performed By: #### L 100.0500 ####[facility] [address] [place], [address] MCV (RBC) [Entitic vol] 91.2 fL Normal 80-94 [facility] Comment on above: Order Comment: 109-1 Performed By: #### L 100.0500 ####[facility] [address] [place], [address] Platelet mean volume (Bld) [Entitic vol] 10.8 fL Normal 6.2-12.0 [facility] Comment on above: Order Comment: 109-1 Performed By: #### L 100.0500 ####[facility] [address] [place], [address] Platelets (Bld) [#/Vol] 251 10*3/uL Normal 150-450 [facility] Comment on above: Order Comment: 109-1 Performed By: #### L 100.0500 ####[facility] [address] [place], [address] RBC (Bld) [#/Vol] 4.31 10*6/uL Low 4.6-6.2 [facility] Comment on above: Order Comment: 109-1 Performed By: #### L 100.0500 ####[facility] [address] [place], [address] RDW SD 43.7 fl Normal 35.1-43.9 [facility] Comment on above: Order Comment: 109-1 Performed By: #### L 100.0500 ####[facility] [address] [place], [address] WBC (Bld) [#/Vol] 9.9 10*3/uL Normal 4.4-11.0 [facility] Comment on above: Order Comment: 109-1 Performed By: #### L 100.0500 ####[facility] [address] [place], [address] Epithelial cells.squamous LM Ql (Urine sed)Ordered By: Renard Burgos on 06-07-2024 Epithelial cells.squamous LM.HPF (Urine sed) [#/Area] 0 /[HPF] 0-5 [facility] Erythrocyte distribution wid th ratioOrdered By: Renard Burgos on 06-07-2024 Erythrocyte distribution width (RBC) [Ratio] 13.0 % 11.6-14.6 [facility] Erythrocyte distribution wid th standard deviationOrdered By: Renard Burgos on 06-07-2024 Erythrocyte distribution width (RBC) [Entitic vol] 43.7 fL 35.1-43.9 [facility] Erythrocyte distribution width (RBC) [Ratio] 43.7 fl 35.1-43.9 [facility] Glucose Ql (U)Ordered By: Garrick Bhatt on 06-07-2024 Urine Glucose (UA) Normal mg/dl Normal [facility] Hematocrit Auto (Bld) [Volum e fraction]Ordered By: Renard Burgos on 06-07-2024 Hematocrit (Bld) [Volume fraction] 39.3 % Low 40-54 [facility] Hemoglobin measurementOrdere d By: Renard Burgos on 06-07-2024 Hemoglobin (Bld) [Mass/Vol] 13.0 g/dL 13.0-16.5 [facility] Ketones Test strip Ql (U)Ord ered By: Renard Burgos on 06-07-2024 Ketones Ql (U) Negative Negative [facility] MCV (mean corpuscular volume ) determinationOrdered By: Renard Burgos on 06-07-2024 MCV (RBC) [Entitic vol] 91.2 fL 80-94 [facility] Mean corpuscular hemoglobin (MCH) determinationOrdered By: Renard Burgos on 06-07-2024 MCH (RBC) [Entitic mass] 30.2 pg 27.0-32.0 [facility] Mean corpuscular hemoglobin concentration (MCHC) determinationOrdered By: Renard Burgos on 06-07-2024 MCHC (RBC) [Mass/Vol] 33.1 g/dL 32-36 [facility] Mean platelet volume determi nationOrdered By: Renard Burgos on 06-07-2024 Platelet mean volume (Bld) [Entitic vol] 10.8 fL 6.2-12.0 [facility] Microscopic analysis of urin e for red blood cells (RBC)Ordered By: Renard Burgos on 06-07-2024 Microscopic analysis of urine for red blood cells (RBC) 0 SEEN /hpf 0-5 [facility] Urine RBC 0 SEEN /hpf 0-5 [facility] Mucus LM Ql (Urine sed)Order ed By: Renard Burgos on 06-07-2024 Mucus Ql (Urine sed) 0 SEEN /hpf [facility] Nitrite Test strip Ql (U)Ord ered By: Renard Burgos on 06-07-2024 Nitrite Ql (U) Negative Negative [facility] Platelet countOrdered By: Garrick Bhatt on 06-07-2024 Platelets (Bld) [#/Vol] 251 10*3/uL 150-450 [facility] Protein Test strip Ql (U)Ord ered By: Renard Burgos on 06-07-2024 Protein Ql (U) 15 mg/dl High Negative [facility] RBC Auto (Bld) [#/Vol]Ordere d By: Renard Burgos on 06-07-2024 RBC (Bld) [#/Vol] 4.31 10*6/uL Low 4.6-6.2 [facility] Squamous epithelial cells de tection in urine sediment by light microscopyOrdered By: Renard Burgos on 06-07-2024 Epithelial cells.squamous LM Ql (Urine sed) 0-5 SEEN /hpf 0-5 [facility] Urinalysis, Completeon 06-07 Mucus Ql (Urine sed) 0 SEEN Normal [facility] Comment on above: Order Comment: CLEAN CATCH Performed By: #### M 100.2200, L400.0001 ####[facility] [address] [place], [address] Urine blood detectionOrdered By: Renard Burgos on 06-07-2024 Urine Occult Blood Negative Negative [facility] Urine clarityOrdered By: Lyubov Burgos on 06-07-2024 Clarity (U) Clear Clear [facility] Urine color determinationOrd ered By: Renard Burgos on 06-07-2024 Color (U) Yellow Yellow [facility] Urine cultureOrdered By: Lyubov Burgos on 06-07-2024 Bacteria identified Cx Nom (U) Pseudomonas aeruginosa Abnormal [facility] Bacteria identified Cx Nom (U) Pseudomonas aeruginosa Abnormal [facility] Urine glucose detectionOrder ed By: Renard Burgos on 06-07-2024 Glucose Ql (U) Normal mg/dl Normal [facility] Urine leukocyte esterase det ection by dipstickOrdered By: Renard Burgos on 06-07-2024 Leukocyte esterase Test strip Ql (U) Negative Negative [facility] Urine pHOrdered By: Renard ocampo on 06-07-2024 pH (U) 7.0 [pH] 5.0 - 8.0 [facility] Urine sediment bacteria coun t by microscopy (number/high power field)Ordered By: Renard Burgos on 06-07-2024 Bacteria LM.HPF (Urine sed) [#/Area] 2 /[HPF] None Seen [facility] Urine sediment yeast count b y microscopy (number/high powered field)Ordered By: Renard Burgos on 06-07-2024 Yeast LM.HPF (Urine sed) [#/Area] 1 /[HPF] None Seen [facility] Urine specific gravity measu rementOrdered By: Renard Burgos on 06-07-2024 Specific gravity (U) [Rel density] 1.010 1.002-1.030 [facility] Urine urobilinogen measureme ntOrdered By: Renard Burgos on 06-07-2024 Urobilinogen Ql (U) 1 mg/dl High Normal [facility] Urobilinogen Ql (U)Ordered B y: Renard Burgos on 06-07-2024 Urobilinogen (U) [Mass/Vol] 1 mg/dL High Normal [facility] White blood cell (WBC) count Ordered By: Renard Burgos on 06-07-2024 WBC (Bld) [#/Vol] 9.9 10*3/uL 4.4-11.0 [facility] White blood cell countOrdere d By: Renard Burgos on 06-07-2024 Urine WBC 0-5 SEEN /hpf 0-5 [facility] White blood cell count 0-5 SEEN /hpf 0-5 [facility] Yeast LM.HPF (Urine sed) [#/ Area]Ordered By: Renard Burgos on 06-07-2024 Urine Yeast 1+ /hpf None Seen [facility] Absolute lymphocyte countOrd ered By: Renard Burgos on 06-03-2024 Lymphocytes Auto (Unsp spec) [#/Vol] 1.94 10*3/uL 0.83-4.51 [facility] Absolute neutrophil countOrd ered By: Renard Burgos on 06-03-2024 Neutrophils (Bld) [#/Vol] 9.5 10*3/uL High 2.0-7.7 [facility] Automated lymphocyte count a s percentage of total leukocytesOrdered By: Renard Burgos on 06-03-2024 Lymphocytes/100 WBC Auto (Unsp spec) 15.7 % Low 19-41 [facility] Basophil percentageOrdered B y: Renard Burgos on 06-03-2024 Basophils/100 WBC (Bld) 0.5 % 0-1 [facility] CBC W/Diff, Automatedon Absolute Lymph 1.94 X10 3/uL Normal 0.83-4.51 [facility] Comment on above: Order Comment: 109-1 Performed By: #### L 100.0100 ####[facility] [address] [place], [address] Absolute Neut 9.5 X10 3/uL High 2.0-7.7 [facility] Comment on above: Order Comment: 109-1 Performed By: #### L 100.0100 ####[facility] [address] [place], [address] Basophils/100 WBC (Bld) 0.5 % Normal 0-1 [facility] Comment on above: Order Comment: 109-1 Performed By: #### L 100.0100 ####[facility] [address] [place], [address] Eosinophils/100 WBC (Bld) 0.3 % Normal 0-5 [facility] Comment on above: Order Comment: 109-1 Performed By: #### L 100.0100 ####[facility] [address] [place], [address] Erythrocyte distribution width (RBC) [Ratio] 13.0 % Normal 11.6-14.6 [facility] Comment on above: Order Comment: 109-1 Performed By: #### L 100.0100 ####[facility] [address] [place], [address] Hematocrit (Bld) [Volume fraction] 40.1 % Normal 40-54 [facility] Comment on above: Order Comment: 109-1 Performed By: #### L 100.0100 ####[facility] [address] [place], [address] Hemoglobin (Bld) [Mass/Vol] 13.2 g/dL Normal 13.0-16.5 [facility] Comment on above: Order Comment: 109-1 Performed By: #### L 100.0100 ####[facility] [address] [place], [address] IG% 0.400 Normal 0.0-0.9 [facility] Comment on above: Order Comment: 109-1 Result Comment: IG% - Immature Granulocytes (promyelocytes, myelocytes andmetamyelocytes) > 1% indicates that a LEFT SHIFT is Present. Performed By: #### L 100.0100 ####[facility] [address] [place], [address] Lymphocytes/100 WBC (Bld) 15.7 % Low 19-41 [facility] Comment on above: Order Comment: 109-1 Performed By: #### L 100.0100 ####[facility] [address] [place], [address] MCH (RBC) [Entitic mass] 30.1 pg Normal 27.0-32.0 [facility] Comment on above: Order Comment: 109-1 Performed By: #### L 100.0100 ####[facility] [address] [place], [address] MCHC (RBC) [Mass/Vol] 32.9 g/dL Normal 32-36 [facility] Comment on above: Order Comment: 109-1 Performed By: #### L 100.0100 ####[facility] [address] [place], [address] MCV (RBC) [Entitic vol] 91.3 fL Normal 80-94 [facility] [facility] Comment on above: Order Comment: 109-1 Performed By: #### L 100.0100 ####[facility] [address] [place], [address] Monocytes/100 WBC (Bld) 6.6 % Normal 0-10 [facility] Comment on above: Order Comment: 109-1 Performed By: #### L 100.0100 ####[facility] [address] [place], [address] Neutrophils/100 WBC (Bld) 76.5 % High 47-70 [facility] Comment on above: Order Comment: 109-1 Performed By: #### L 100.0100 ####[facility] [address] [place], [address] Nucleated RBC (Bld) [#/Vol] 0 10*3/uL Normal 0-5 [facility] Comment on above: Order Comment: 109-1 Performed By: #### L 100.0100 ####[facility] [address] [place], [address] Platelet mean volume (Bld) [Entitic vol] 11.1 fL Normal 6.2-12.0 [facility] Comment on above: Order Comment: 109-1 Performed By: #### L 100.0100 ####[facility] [address] [place], [address] Platelets (Bld) [#/Vol] 249 10*3/uL Normal 150-450 [facility] Comment on above: Order Comment: 109-1 Performed By: #### L 100.0100 ####[facility] [address] [place], [address] RBC (Bld) [#/Vol] 4.39 10*6/uL Low 4.6-6.2 [facility] Comment on above: Order Comment: 109-1 Performed By: #### L 100.0100 ####[facility] [address] [place], [address] RDW SD 42.8 fl Normal 35.1-43.9 [facility] Comment on above: Order Comment: 109-1 Performed By: #### L 100.0100 ####[facility] [address] [place], [address] WBC (Bld) [#/Vol] 12.4 10*3/uL High 4.4-11.0 [facility] Comment on above: Order Comment: 109-1 Performed By: #### L 100.0100 ####[facility] [address] [place], [address] Eosinophil percentageOrdered By: Renard Burgos on 06-03-2024 Eosinophils/100 WBC (Bld) 0.3 % 0-5 [facility] Erythrocyte distribution wid th ratioOrdered By: Renard Burgos on 06-03-2024 Erythrocyte distribution width (RBC) [Ratio] 13.0 % 11.6-14.6 [facility] Erythrocyte distribution wid th standard deviationOrdered By: Renard Burgos on 06-03-2024 Erythrocyte distribution width (RBC) [Entitic vol] 42.8 fL 35.1-43.9 [facility] Erythrocyte distribution width (RBC) [Ratio] 42.8 fl 35.1-43.9 [facility] Hematocrit Auto (Bld) [Volum e fraction]Ordered By: Renard Burgos on 06-03-2024 Hematocrit (Bld) [Volume fraction] 40.1 % 40-54 [facility] Hemoglobin measurementOrdere d By: Renard Burgos on 06-03-2024 Hemoglobin (Bld) [Mass/Vol] 13.2 g/dL 13.0-16.5 [facility] Immature granulocytes/100 WB C Auto (Bld)Ordered By: Renard Burgos on 06-03-2024 Immature granulocytes/100 WBC (Bld) 0.400 % 0.0-0.9 [facility] Comment on above: IG% - Immature Granu locytes (promyelocytes, myelocytes and metamyelocytes) > 1% indicates that a LEFT SHIFT is Present. Lymphocytes Auto (Unsp spec) [#/Vol]Ordered By: Renard Burgos on 06-03-2024 Lymphocytes (Bld) [#/Vol] 1.94 10*3/uL 0.83-4.51 [facility] Lymphocytes/100 WBC Auto (Un sp spec)Ordered By: Renard Burgos on 06-03-2024 Lymphocytes/100 WBC (Bld) 15.7 % Low 19-41 [facility] MCV (mean corpuscular volume ) determinationOrdered By: Renard Burgos on 06-03-2024 MCV (RBC) [Entitic vol] 91.3 fL 80-94 [facility] Mean corpuscular hemoglobin (MCH) determinationOrdered By: Renard Burgos on 06-03-2024 MCH (RBC) [Entitic mass] 30.1 pg 27.0-32.0 [facility] Mean corpuscular hemoglobin concentration (MCHC) determinationOrdered By: Renard Burgos on 06-03-2024 MCHC (RBC) [Mass/Vol] 32.9 g/dL 32-36 [facility] Mean platelet volume determi nationOrdered By: Renard Burgos on 06-03-2024 Platelet mean volume (Bld) [Entitic vol] 11.1 fL 6.2-12.0 [facility] Monocyte percentageOrdered B y: Renard Burgos on 06-03-2024 Monocytes/100 WBC (Bld) 6.6 % 0-10 [facility] Neutrophil percentageOrdered By: Renard Burgos on 06-03-2024 Neutrophils/100 WBC (Bld) 76.5 % High 47-70 [facility] Nucleated red blood cell per centageOrdered By: Renard Burgos on 06-03-2024 Nucleated RBC/100 WBC (Bld) [Ratio] 0 % 0-5 [facility] Platelet countOrdered By: Garrick Bhatt on 06-03-2024 Platelets (Bld) [#/Vol] 249 10*3/uL 150-450 [facility] RBC Auto (Bld) [#/Vol]Ordere d By: Renard Burgos on 06-03-2024 RBC (Bld) [#/Vol] 4.39 10*6/uL Low 4.6-6.2 [facility] White blood cell (WBC) count Ordered By: Renard Loretta on 06-03-2024 WBC (Bld) [#/Vol] 12.4 10*3/uL High 4.4-11.0 [facility] Absolute lymphocyte countOrd ered By: Renard Burgos on 05-27-2024 Lymphocytes Auto (Unsp spec) [#/Vol] 1.81 10*3/uL 0.83-4.51 [facility] Absolute neutrophil countOrd ered By: Renard Burgos on 05-27-2024 Neutrophils (Bld) [#/Vol] 5.0 10*3/uL 2.0-7.7 [facility] Automated lymphocyte count a s percentage of total leukocytesOrdered By: Renard Burgos on 05-27-2024 Lymphocytes/100 WBC Auto (Unsp spec) 24.4 % 19-41 [facility] Basophil percentageOrdered B y: Renard Burgos on 05-27-2024 Basophils/100 WBC (Bld) 0.5 % 0-1 [facility] CBC W/Diff, Automatedon 05-02 Absolute Lymph 1.81 X10 3/uL Normal 0.83-4.51 [facility] Comment on above: Order Comment: 109.1 Performed By: #### L 100.0100 ####[facility] [address] [facility] [address] Absolute Neut 5.0 X10 3/uL Normal 2.0-7.7 [facility] Comment on above: Order Comment: 109.1 Performed By: #### L 100.0100 ####[facility] [address] [place], [address] Basophils/100 WBC (Bld) 0.5 % Normal 0-1 [facility] Comment on above: Order Comment: 109.1 Performed By: #### L 100.0100 ####[facility] [address] [place], [address] Eosinophils/100 WBC (Bld) 0.5 % Normal 0-5 [facility] Comment on above: Order Comment: 109.1 Performed By: #### L 100.0100 ####[facility] [address] [place], [address] Erythrocyte distribution width (RBC) [Ratio] 12.8 % Normal 11.6-14.6 [facility] Comment on above: Order Comment: 109.1 Performed By: #### L 100.0100 ####[facility] [address] [place], [address] Hematocrit (Bld) [Volume fraction] 39.8 % Low 40-54 [facility] Comment on above: Order Comment: 109.1 Performed By: #### L 100.0100 ####[facility] [address] [place], [address] Hemoglobin (Bld) [Mass/Vol] 13.2 g/dL Normal 13.0-16.5 [facility] Comment on above: Order Comment: 109.1 Performed By: #### L 100.0100 ####[facility] [address] [place], [address] IG% 0.400 Normal 0.0-0.9 [facility] Comment on above: Order Comment: 109.1 Result Comment: IG% - Immature Granulocytes (promyelocytes, myelocytes andmetamyelocytes) > 1% indicates that a LEFT SHIFT is Present. Performed By: #### L 100.0100 ####[facility] [address] [place], [address] Lymphocytes/100 WBC (Bld) 24.4 % Normal 19-41 [facility] Comment on above: Order Comment: 109.1 Performed By: #### L 100.0100 ####[facility] [address] [place], [address] MCH (RBC) [Entitic mass] 30.2 pg Normal 27.0-32.0 [facility] Comment on above: Order Comment: 109.1 Performed By: #### L 100.0100 ####[facility] [address] [place], [address] MCHC (RBC) [Mass/Vol] 33.2 g/dL Normal 32-36 [facility] Comment on above: Order Comment: 109.1 Performed By: #### L 100.0100 ####[facility] [address] [place], [address] MCV (RBC) [Entitic vol] 91.1 fL Normal 80-94 [facility] Comment on above: Order Comment: 109.1 Performed By: #### L 100.0100 ####[facility] [address] [place], [address] Monocytes/100 WBC (Bld) 7.0 % Normal 0-10 [facility] Comment on above: Order Comment: 109.1 Performed By: #### L 100.0100 ####[facility] [address] [place], [address] Neutrophils/100 WBC (Bld) 67.2 % Normal 47-70 [facility] Comment on above: Order Comment: 109.1 Performed By: #### L 100.0100 ####[facility] [address] [place], [address] Nucleated RBC (Bld) [#/Vol] 0 10*3/uL Normal 0-5 [facility] Comment on above: Order Comment: 109.1 Performed By: #### L 100.0100 ####[facility] [address] [place], [address] Platelet mean volume (Bld) [Entitic vol] 10.3 fL Normal 6.2-12.0 [facility] Comment on above: Order Comment: 109.1 Performed By: #### L 100.0100 ####[facility] [address] [place], [address] Platelets (Bld) [#/Vol] 239 10*3/uL Normal 150-450 [facility] Comment on above: Order Comment: 109.1 Performed By: #### L 100.0100 ####[facility] [address] [place], [address] RBC (Bld) [#/Vol] 4.37 10*6/uL Low 4.6-6.2 [facility] Comment on above: Order Comment: 109.1 Performed By: #### L 100.0100 ####[facility] [address] [place], [address] RDW SD 42.5 fl Normal 35.1-43.9 [facility] Comment on above: Order Comment: 109.1 Performed By: #### L 100.0100 ####[facility] [address] [place], [address] WBC (Bld) [#/Vol] 7.4 10*3/uL Normal 4.4-11.0 [facility] Comment on above: Order Comment: 109.1 Performed By: #### L 100.0100 ####[facility] [address] [place], [address] Eosinophil percentageOrdered By: Renard Burgos on 05-27-2024 Eosinophils/100 WBC (Bld) 0.5 % 0-5 [facility] Erythrocyte distribution wid th ratioOrdered By: Renard Burgos on 05-27-2024 Erythrocyte distribution width (RBC) [Ratio] 12.8 % 11.6-14.6 [facility] Erythrocyte distribution wid th standard deviationOrdered By: Renard Burgos on 05-27-2024 Erythrocyte distribution width (RBC) [Entitic vol] 42.5 fL 35.1-43.9 [facility] Erythrocyte distribution width (RBC) [Ratio] 42.5 fl 35.1-43.9 [facility] Hematocrit Auto (Bld) [Volum e fraction]Ordered By: Renard Burgos on 05-27-2024 Hematocrit (Bld) [Volume fraction] 39.8 % Low 40-54 [facility] Hemoglobin measurementOrdere d By: Renard Burgos on 05-27-2024 Hemoglobin (Bld) [Mass/Vol] 13.2 g/dL 13.0-16.5 [facility] Immature granulocytes/100 WB C Auto (Bld)Ordered By: Renard Burgos on 05-27-2024 Immature granulocytes/100 WBC (Bld) 0.400 % 0.0-0.9 [facility] Comment on above: IG% - Immature Granu locytes (promyelocytes, myelocytes and metamyelocytes) > 1% indicates that a LEFT SHIFT is Present. Lymphocytes Auto (Unsp spec) [#/Vol]Ordered By: Renard Burgos on 05-27-2024 Lymphocytes (Bld) [#/Vol] 1.81 10*3/uL 0.83-4.51 [facility] Lymphocytes/100 WBC Auto (Un sp spec)Ordered By: Renard Burgos on 05-27-2024 Lymphocytes/100 WBC (Bld) 24.4 % 19-41 [facility] MCV (mean corpuscular volume ) determinationOrdered By: Renard Burgos on 05-27-2024 MCV (RBC) [Entitic vol] 91.1 fL 80-94 [facility] Mean corpuscular hemoglobin (MCH) determinationOrdered By: Renard Burgos on 05-27-2024 MCH (RBC) [Entitic mass] 30.2 pg 27.0-32.0 [facility] Mean corpuscular hemoglobin concentration (MCHC) determinationOrdered By: Renard Burgos on 05-27-2024 MCHC (RBC) [Mass/Vol] 33.2 g/dL 32-36 [facility] Mean platelet volume determi nationOrdered By: Renard Burgos on 05-27-2024 Platelet mean volume (Bld) [Entitic vol] 10.3 fL 6.2-12.0 [facility] Monocyte percentageOrdered B y: Renard Burgos on 05-27-2024 Monocytes/100 WBC (Bld) 7.0 % 0-10 [facility] Neutrophil percentageOrdered By: Renard Burgos on 05-27-2024 Neutrophils/100 WBC (Bld) 67.2 % 47-70 [facility] Nucleated red blood cell per centageOrdered By: Renard Burgos on 05-27-2024 Nucleated RBC/100 WBC (Bld) [Ratio] 0 % 0-5 [facility] Platelet countOrdered By: Garrick Bhatt on 05-27-2024 Platelets (Bld) [#/Vol] 239 10*3/uL 150-450 [facility] RBC Auto (Bld) [#/Vol]Ordere d By: Renard Burgos on 05-27-2024 RBC (Bld) [#/Vol] 4.37 10*6/uL Low 4.6-6.2 [facility] White blood cell (WBC) count Ordered By: Renard Burgos on 05-27-2024 WBC (Bld) [#/Vol] 7.4 10*3/uL 4.4-11.0 [facility] Absolute lymphocyte countOrd ered By: Renard Burgos on 05-20-2024 Lymphocytes Auto (Unsp spec) [#/Vol] 1.73 10*3/uL 0.83-4.51 [facility] Absolute neutrophil countOrd ered By: Renard Burgos on 05-20-2024 Neutrophils (Bld) [#/Vol] 7.0 10*3/uL 2.0-7.7 [facility] Automated blood erythrocyte countOrdered By: Renard Burgos on 05-20-2024 RBC (Bld) [#/Vol] 4.74 10*6/uL Normal 4.6-6.2 [facility] Comment on above: Order Comment: 109-1 Performed By: #### L 100.0100 ####[facility] [address] [place], [address] Automated blood hematocrit ( percentage)Ordered By: Renard Burgos on 05-20-2024 Hematocrit (Bld) [Volume fraction] 43.6 % Normal 40-54 [facility] Comment on above: Order Comment: 109-1 Performed By: #### L 100.0100 ####[facility] [address] [place], [address] Automated lymphocyte count a s percentage of total leukocytesOrdered By: Renard Burgos on 05-20-2024 Lymphocytes/100 WBC (Bld) 17.7 % Low -41 [facility] Comment on above: Order Comment: 109-1 Performed By: #### L 100.0100 ####[facility] [address] [place], [address] Lymphocytes/100 WBC Auto (Unsp spec) 17.7 % Low - [facility] Basophil percentageOrdered B y: Renard Burgos on 05-20-2024 Basophils/100 WBC (Bld) 0.5 % Normal 0-1 [facility] Comment on above: Order Comment: 109-1 Performed By: #### L 100.0100 ####[facility] [address] [place], [address] CBC W/Diff, Automatedon 05-02 Absolute Lymph 1.73 X10 3/uL Normal 0.83-4.51 [facility] Comment on above: Order Comment: 109-1 Performed By: #### L 100.0100 ####[facility] [address] [place], [address] Absolute Neut 7.0 X10 3/uL Normal 2.0-7.7 [facility] Comment on above: Order Comment: 109-1 Performed By: #### L 100.0100 ####[facility] [address] [place], [address] IG% 0.500 Normal 0.0-0.9 [facility] Comment on above: Order Comment: 109-1 Result Comment: IG% - Immature Granulocytes (promyelocytes, myelocytes andmetamyelocytes) > 1% indicates that a LEFT SHIFT is Present. Performed By: #### L 100.0100 ####[facility] [address] [place], [address] Nucleated RBC (Bld) [#/Vol] 0 10*3/uL Normal 0-5 [facility] Comment on above: Order Comment: 109-1 Performed By: #### L 100.0100 ####[facility] [address] [place], [address] RDW SD 42.5 fl Normal 35.1-43.9 [facility] Comment on above: Order Comment: 109-1 Performed By: #### L 100.0100 ####[facility] [address] [place], [address] Eosinophil percentageOrdered By: Renard Burgos on 05-20-2024 Eosinophils/100 WBC (Bld) 0.5 % Normal 0-5 [facility] Comment on above: Order Comment: 109-1 Performed By: #### L 100.0100 ####[facility] [address] [place], [address] Erythrocyte distribution wid th ratioOrdered By: Renard Burgos on 05-20-2024 Erythrocyte distribution width (RBC) [Ratio] 12.6 % Normal 11.6-14.6 [facility] Comment on above: Order Comment: 109-1 Performed By: #### L 100.0100 ####[facility] [address] [place], [address] Erythrocyte distribution wid th standard deviationOrdered By: Renard Burgos on 05-20-2024 Erythrocyte distribution width (RBC) [Entitic vol] 42.5 fL 35.1-43.9 [facility] Erythrocyte distribution width (RBC) [Ratio] 42.5 fl 35.1-43.9 [facility] Hemoglobin measurementOrdere d By: Renard Burgos on 05-20-2024 Hemoglobin (Bld) [Mass/Vol] 14.4 g/dL Normal 13.0-16.5 [facility] Comment on above: Order Comment: 109-1 Performed By: #### L 100.0100 ####[facility] [address] [place], [address] Immature granulocytes/100 WB C Auto (Bld)Ordered By: Renard Burgos on 05-20-2024 Immature granulocytes/100 WBC (Bld) 0.500 % 0.0-0.9 [facility] Comment on above: IG% - Immature Granu locytes (promyelocytes, myelocytes and metamyelocytes) > 1% indicates that a LEFT SHIFT is Present. Lymphocytes Auto (Unsp spec) [#/Vol]Ordered By: Renard Burgos on 05-20-2024 Lymphocytes (Bld) [#/Vol] 1.73 10*3/uL 0.83-4.51 [facility] MCV (mean corpuscular volume ) determinationOrdered By: Renard Burgos on 05-20-2024 MCV (RBC) [Entitic vol] 92.0 fL Normal 80-94 [facility] Comment on above: Order Comment: 109-1 Performed By: #### L 100.0100 ####[facility] [address] [place], [address] Mean corpuscular hemoglobin (MCH) determinationOrdered By: Renard Burgos on 05-20-2024 MCH (RBC) [Entitic mass] 30.4 pg Normal 27.0-32.0 [facility] Comment on above: Order Comment: 109-1 Performed By: #### L 100.0100 ####[facility] [address] [place], [place], [phone] Mean corpuscular hemoglobin concentration (MCHC) determinationOrdered By: Renard Burgos on 05-20-2024 MCHC (RBC) [Mass/Vol] 33.0 g/dL Normal 32-36 [facility] Comment on above: Order Comment: 109-1 Performed By: #### L 100.0100 ####[facility] [address] [place], [place], [phone] Mean platelet volume determi nationOrdered By: Renard Burgos on 05-20-2024 Platelet mean volume (Bld) [Entitic vol] 10.7 fL Normal 6.2-12.0 [facility] Comment on above: Order Comment: 109-1 Performed By: #### L 100.0100 ####[facility] [address] [place], [address] Monocyte percentageOrdered B y: Renard Burgos on 05-20-2024 Monocytes/100 WBC (Bld) 9.4 % Normal 0-10 [facility] Comment on above: Order Comment: 109-1 Performed By: #### L 100.0100 ####[facility] [address] [place], [address] Neutrophil percentageOrdered By: Renard Burgos on 05-20-2024 Neutrophils/100 WBC (Bld) 71.4 % High 47-70 [facility] Comment on above: Order Comment: 109-1 Performed By: #### L 100.0100 ####[facility] [address] [place], [address] Nucleated red blood cell per centageOrdered By: Renard Burgos on 05-20-2024 Nucleated RBC/100 WBC (Bld) [Ratio] 0 % 0-5 [facility] Platelet countOrdered By: Garrick Bhatt on 05-20-2024 Platelets (Bld) [#/Vol] 239 10*3/uL Normal 150-450 [facility] Comment on above: Order Comment: 109-1 Performed By: #### L 100.0100 ####[facility] [address] [place], [address] White blood cell (WBC) count Ordered By: Renard Burgos on 05-20-2024 WBC (Bld) [#/Vol] 9.8 10*3/uL Normal 4.4-11.0 [facility] Comment on above: Order Comment: 109-1 Performed By: #### L 100.0100 ####[facility] [address] [place], [address] Absolute lymphocyte countOrd ered By: Renard Burgos on 05-13-2024 Lymphocytes Auto (Unsp spec) [#/Vol] 2.10 10*3/uL 0.83-4.51 [facility] Absolute neutrophil countOrd ered By: Renard Burgos on 05-13-2024 Neutrophils (Bld) [#/Vol] 6.2 10*3/uL 2.0-7.7 [facility] Automated lymphocyte count a s percentage of total leukocytesOrdered By: Renard Hensleyrustam on 05-13-2024 Lymphocytes/100 WBC Auto (Unsp spec) 22.8 % 19-41 [facility] Basophil percentageOrdered B y: Renard Hensleyrustam on 05-13-2024 Basophils/100 WBC (Bld) 0.5 % 0-1 [facility] CBC W/Diff, Automatedon 05-01 Absolute Lymph 2.10 X10 3/uL Normal 0.83-4.51 [facility] Comment on above: Order Comment: 109 Performed By: #### L 100.0100 ####[facility] [address] [place], [address] Absolute Neut 6.2 X10 3/uL Normal 2.0-7.7 [facility] Comment on above: Order Comment: 109 Performed By: #### L 100.0100 ####[facility] [address] [place], [address] Basophils/100 WBC (Bld) 0.5 % Normal 0-1 [facility] Comment on above: Order Comment: 109 Performed By: #### L 100.0100 ####[facility] [address] [place], [address] Eosinophils/100 WBC (Bld) 0.5 % Normal 0-5 [facility] Comment on above: Order Comment: 109 Performed By: #### L 100.0100 ####[facility] [address] [place], [address] Erythrocyte distribution width (RBC) [Ratio] 12.9 % Normal 11.6-14.6 [facility] Comment on above: Order Comment: 109 Performed By: #### L 100.0100 ####[facility] [address] [place], [address] Hematocrit (Bld) [Volume fraction] 42.5 % Normal 40-54 [facility] Comment on above: Order Comment: 109 Performed By: #### L 100.0100 ####[facility] [address] [place], [address] Hemoglobin (Bld) [Mass/Vol] 14.2 g/dL Normal 13.0-16.5 [facility] Comment on above: Order Comment: 109 Performed By: #### L 100.0100 ####[facility] [address] [place], [address] IG% 0.300 Normal 0.0-0.9 [facility] Comment on above: Order Comment: 109 Result Comment: IG% - Immature Granulocytes (promyelocytes, myelocytes andmetamyelocytes) > 1% indicates that a LEFT SHIFT is Present. Performed By: #### L 100.0100 ####[facility] [address] [place], [address] Lymphocytes/100 WBC (Bld) 22.8 % Normal 19-41 [facility] Comment on above: Order Comment: 109 Performed By: #### L 100.0100 ####[facility] [address] [place], [address] MCH (RBC) [Entitic mass] 30.3 pg Normal 27.0-32.0 [facility] Comment on above: Order Comment: 109 Performed By: #### L 100.0100 ####[facility] [address] [place], [address] MCHC (RBC) [Mass/Vol] 33.4 g/dL Normal 32-36 [facility] Comment on above: Order Comment: 109 Performed By: #### L 100.0100 ####[facility] [address] [place], [address] MCV (RBC) [Entitic vol] 90.6 fL Normal 80-94 [facility] Comment on above: Order Comment: 109 Performed By: #### L 100.0100 ####[facility] [address] [place], [address] Monocytes/100 WBC (Bld) 8.7 % Normal 0-10 [facility] Comment on above: Order Comment: 109 Performed By: #### L 100.0100 ####[facility] [address] [place], [address] Neutrophils/100 WBC (Bld) 67.2 % Normal 47-70 [facility] Comment on above: Order Comment: 109 Performed By: #### L 100.0100 ####[facility] [address] [place], [address] Nucleated RBC (Bld) [#/Vol] 0 10*3/uL Normal 0-5 [facility] Comment on above: Order Comment: 109 Performed By: #### L 100.0100 ####[facility] [address] [place], [address] Platelet mean volume (Bld) [Entitic vol] 11.1 fL Normal 6.2-12.0 [facility] Comment on above: Order Comment: 109 Performed By: #### L 100.0100 ####[facility] [address] [place], [address] Platelets (Bld) [#/Vol] 218 10*3/uL Normal 150-450 [facility] Comment on above: Order Comment: 109 Performed By: #### L 100.0100 ####[facility] [address] [place], [address] RBC (Bld) [#/Vol] 4.69 10*6/uL Normal 4.6-6.2 [facility] Comment on above: Order Comment: 109 Performed By: #### L 100.0100 ####[facility] [address] [place], [address] RDW SD 42.3 fl Normal 35.1-43.9 [facility] Comment on above: Order Comment: 109 Performed By: #### L 100.0100 ####[facility] [address] [place], [address] WBC (Bld) [#/Vol] 9.2 10*3/uL Normal 4.4-11.0 [facility] Comment on above: Order Comment: 109 Performed By: #### L 100.0100 ####[facility] [address] [place], [address] Eosinophil percentageOrdered By: Renard Burgos on 05-13-2024 Eosinophils/100 WBC (Bld) 0.5 % 0-5 [facility] Erythrocyte distribution wid th ratioOrdered By: Renard Burgos on 05-13-2024 Erythrocyte distribution width (RBC) [Ratio] 12.9 % 11.6-14.6 [facility] Erythrocyte distribution wid th standard deviationOrdered By: Renard Burgos on 05-13-2024 Erythrocyte distribution width (RBC) [Entitic vol] 42.3 fL 35.1-43.9 [facility] Erythrocyte distribution width (RBC) [Ratio] 42.3 fl 35.1-43.9 [facility] Hematocrit Auto (Bld) [Volum e fraction]Ordered By: Renard Burgos on 05-13-2024 Hematocrit (Bld) [Volume fraction] 42.5 % 40-54 [facility] Hemoglobin measurementOrdere d By: Renard Burgos on 05-13-2024 Hemoglobin (Bld) [Mass/Vol] 14.2 g/dL 13.0-16.5 [facility] Immature granulocytes/100 WB C Auto (Bld)Ordered By: Renard Burgos on 05-13-2024 Immature granulocytes/100 WBC (Bld) 0.300 % 0.0-0.9 [facility] Comment on above: IG% - Immature Granu locytes (promyelocytes, myelocytes and metamyelocytes) > 1% indicates that a LEFT SHIFT is Present. Lymphocytes Auto (Unsp spec) [#/Vol]Ordered By: Renard Burgos on 05-13-2024 Lymphocytes (Bld) [#/Vol] 2.10 10*3/uL 0.83-4.51 [facility] Lymphocytes/100 WBC Auto (Un sp spec)Ordered By: Renard Burgos on 05-13-2024 Lymphocytes/100 WBC (Bld) 22.8 % 19-41 [facility] MCV (mean corpuscular volume ) determinationOrdered By: Renard Burgos on 05-13-2024 MCV (RBC) [Entitic vol] 90.6 fL 80-94 [facility] Mean corpuscular hemoglobin (MCH) determinationOrdered By: Renard Burgos on 05-13-2024 MCH (RBC) [Entitic mass] 30.3 pg 27.0-32.0 [facility] Mean corpuscular hemoglobin concentration (MCHC) determinationOrdered By: Renard Burgos on 05-13-2024 MCHC (RBC) [Mass/Vol] 33.4 g/dL 32-36 [facility] Mean platelet volume determi nationOrdered By: Renard Burgos on 05-13-2024 Platelet mean volume (Bld) [Entitic vol] 11.1 fL 6.2-12.0 [facility] Monocyte percentageOrdered B y: Renard Burgos on 05-13-2024 Monocytes/100 WBC (Bld) 8.7 % 0-10 [facility] Neutrophil percentageOrdered By: Renard Burgos on 05-13-2024 Neutrophils/100 WBC (Bld) 67.2 % 47-70 [facility] Nucleated red blood cell per centageOrdered By: Renard Burgos on 05-13-2024 Nucleated RBC/100 WBC (Bld) [Ratio] 0 % 0-5 [facility] Platelet countOrdered By: Garrick Bhatt on 05-13-2024 Platelets (Bld) [#/Vol] 218 10*3/uL 150-450 [facility] RBC Auto (Bld) [#/Vol]Ordere d By: Renard Burgos on 05-13-2024 RBC (Bld) [#/Vol] 4.69 10*6/uL 4.6-6.2 [facility] White blood cell (WBC) count Ordered By: Renard Burgos on 05-13-2024 WBC (Bld) [#/Vol] 9.2 10*3/uL 4.4-11.0 [facility] Absolute neutrophil countOrd ered By: Renard Burgos on 05-06-2024 Neutrophils (Bld) [#/Vol] 5.9 10*3/uL 2.0-7.7 [facility] Automated blood erythrocyte countOrdered By: Renard Burgos on 05-06-2024 RBC (Bld) [#/Vol] 4.85 10*6/uL Normal 4.6-6.2 [facility] Comment on above: Order Comment: 109-1 Performed By: #### L 100.0100 ####[facility] [address] [place], [place], [id number] Automated blood hematocrit ( percentage)Ordered By: Renard Burgos on 05-06-2024 Hematocrit (Bld) [Volume fraction] 45.0 % Normal 40-54 [facility] Comment on above: Order Comment: 109-1 Performed By: #### L 100.0100 ####[facility] [address] [place], [place], [phone] Automated lymphocyte count a s percentage of total leukocytesOrdered By: Renard Burgos on 05-06-2024 Lymphocytes/100 WBC (Bld) 24.4 % Normal 19-41 [facility] Comment on above: Order Comment: 109-1 Performed By: #### L 100.0100 ####[facility] [address] [place], [place], [address] Basophil percentageOrdered B y: Renard Burgos on 05-06-2024 Basophils/100 WBC (Bld) 0.5 % Normal 0-1 [facility] Comment on above: Order Comment: 109-1 Performed By: #### L 100.0100 ####[facility] [address] [place], [address] CBC W/Diff, Automatedon - Absolute Lymph 2.22 X10 3/uL Normal 0.83-4.51 [facility] Comment on above: Order Comment: 109-1 Performed By: #### L 100.0100 ####[facility] [address] [place], [address] Absolute Neut 5.9 X10 3/uL Normal 2.0-7.7 [facility] Comment on above: Order Comment: 109-1 Performed By: #### L 100.0100 ####[facility] [address] [place], [address] IG% 0.500 Normal 0.0-0.9 [facility] Comment on above: Order Comment: 109-1 Result Comment: IG% - Immature Granulocytes (promyelocytes, myelocytes andmetamyelocytes) > 1% indicates that a LEFT SHIFT is Present. Performed By: #### L 100.0100 ####[facility] [address] [place], [address] Nucleated RBC (Bld) [#/Vol] 0 10*3/uL Normal 0-5 [facility] Comment on above: Order Comment: 109-1 Performed By: #### L 100.0100 ####[facility] [address] [place], [address] RDW SD 43.9 fl Normal 35.1-43.9 [facility] Comment on above: Order Comment: 109-1 Performed By: #### L 100.0100 ####[facility] [address] [place], [address] Eosinophil percentageOrdered By: Renard Burgos on 05-06-2024 Eosinophils/100 WBC (Bld) 0.4 % Normal 0-5 [facility] Comment on above: Order Comment: 109-1 Performed By: #### L 100.0100 ####[facility] [address] [place], [place], [phone] Erythrocyte distribution wid th ratioOrdered By: Renard Burgos on 05-06-2024 Erythrocyte distribution width (RBC) [Ratio] 13.0 % Normal 11.6-14.6 [facility] Comment on above: Order Comment: 109-1 Performed By: #### L 100.0100 ####[facility] [address] [place], [place], [address] Erythrocyte distribution wid th standard deviationOrdered By: Renard Burgos on 05-06-2024 Erythrocyte distribution width (RBC) [Entitic vol] 43.9 fL 35.1-43.9 [facility] Hemoglobin measurementOrdere d By: Renard Burgos on 05-06-2024 Hemoglobin (Bld) [Mass/Vol] 14.5 g/dL Normal 13.0-16.5 [facility] Comment on above: Order Comment: 109-1 Performed By: #### L 100.0100 ####[facility] [address] [place], [place], [id number] Immature granulocytes/100 WB C Auto (Bld)Ordered By: Renard Burgos on 05-06-2024 Immature granulocytes/100 WBC (Bld) 0.500 % 0.0-0.9 [facility] Comment on above: IG% - Immature Granu locytes (promyelocytes, myelocytes and metamyelocytes) > 1% indicates that a LEFT SHIFT is Present. Lymphocytes Auto (Unsp spec) [#/Vol]Ordered By: Renard Burgos on 05-06-2024 Lymphocytes (Bld) [#/Vol] 2.22 10*3/uL 0.83-4.51 [facility] MCV (mean corpuscular volume ) determinationOrdered By: Renard Burgos on 05-06-2024 MCV (RBC) [Entitic vol] 92.8 fL Normal 80-94 [facility] Comment on above: Order Comment: 109-1 Performed By: #### L 100.0100 ####[facility] [address] [place], [address] Mean corpuscular hemoglobin (MCH) determinationOrdered By: Renard Burgos on 05-06-2024 MCH (RBC) [Entitic mass] 29.9 pg Normal 27.0-32.0 [facility] Comment on above: Order Comment: 109-1 Performed By: #### L 100.0100 ####[facility] [address] [place], [place], [phone] Mean corpuscular hemoglobin concentration (MCHC) determinationOrdered By: Renard Burgos on 05-06-2024 MCHC (RBC) [Mass/Vol] 32.2 g/dL Normal 32-36 [facility] Comment on above: Order Comment: 109-1 Performed By: #### L 100.0100 ####[facility] [address] [place], [place], [phone] Mean platelet volume determi nationOrdered By: Renard Burgos on 05-06-2024 Platelet mean volume (Bld) [Entitic vol] 11.4 fL Normal 6.2-12.0 [facility] Comment on above: Order Comment: 109-1 Performed By: #### L 100.0100 ####[facility] [address] [place], [place], [phone] Monocyte percentageOrdered B y: Renard Burgos on 05-06-2024 Monocytes/100 WBC (Bld) 9.7 % Normal 0-10 [facility] Comment on above: Order Comment: 109-1 Performed By: #### L 100.0100 ####[facility] [address] [place], [address] Neutrophil percentageOrdered By: Renard Burgos on 05-06-2024 Neutrophils/100 WBC (Bld) 64.5 % Normal 47-70 [facility] Comment on above: Order Comment: 109-1 Performed By: #### L 100.0100 ####[facility] [address] [place], [address] Nucleated red blood cell per centageOrdered By: Renard Burgos on 05-06-2024 Nucleated RBC/100 WBC (Bld) [Ratio] 0 % 0-5 [facility] Platelet countOrdered By: Garrick Bhatt on 05-06-2024 Platelets (Bld) [#/Vol] 201 10*3/uL Normal 150-450 [facility] Comment on above: Order Comment: 109-1 Performed By: #### L 100.0100 ####[facility] [address] [place], [place], [id number] White blood cell (WBC) count Ordered By: Renard Burgos on 05-06-2024 WBC (Bld) [#/Vol] 9.1 10*3/uL Normal 4.4-11.0 [facility] Comment on above: Order Comment: 109-1 Performed By: #### L 100.0100 ####[facility] [address] [place], [place], [phone] 36on 05-03-2024 36 Gissel is calling to let Dr. Burgos know that the medication he prescribed he not certified, she is going to fax the information to the office. [phone] Normal [facility] Absolute neutrophil countOrd ered By: Renard Burgos on 04-29-2024 Neutrophils (Bld) [#/Vol] 6.3 10*3/uL 2.0-7.7 [facility] Basophil percentageOrdered B y: Renard Burgos on 04-29-2024 Basophils/100 WBC (Bld) 0.4 % 0-1 [facility] CBC W/Diff, Automatedon 04-02 Absolute Lymph 2.11 X10 3/uL Normal 0.83-4.51 [facility] Comment on above: Order Comment: 109.1 Performed By: #### L 100.0100 ####[facility] [address] [place], [place], [phone] Absolute Neut 6.3 X10 3/uL Normal 2.0-7.7 [facility] Comment on above: Order Comment: 109.1 Performed By: #### L 100.0100 ####[facility] [address] [place], [address] Basophils/100 WBC (Bld) 0.4 % Normal 0-1 [facility] Comment on above: Order Comment: 109.1 Performed By: #### L 100.0100 ####[facility] [address] [place], [address] Eosinophils/100 WBC (Bld) 0.4 % Normal 0-5 [facility] Comment on above: Order Comment: 109.1 Performed By: #### L 100.0100 ####[facility] [address] [place], [address] Erythrocyte distribution width (RBC) [Ratio] 12.6 % Normal 11.6-14.6 [facility] Comment on above: Order Comment: 109.1 Performed By: #### L 100.0100 ####[facility] [address] [place], [address] Hematocrit (Bld) [Volume fraction] 41.6 % Normal 40-54 [facility] Comment on above: Order Comment: 109.1 Performed By: #### L 100.0100 ####[facility] [address] [place], [address] Hemoglobin (Bld) [Mass/Vol] 13.7 g/dL Normal 13.0-16.5 [facility] Comment on above: Order Comment: 109.1 Performed By: #### L 100.0100 ####[facility] [address] [place], [address] IG% 0.400 Normal 0.0-0.9 [facility] Comment on above: Order Comment: 109.1 Result Comment: IG% - Immature Granulocytes (promyelocytes, myelocytes andmetamyelocytes) > 1% indicates that a LEFT SHIFT is Present. Performed By: #### L 100.0100 ####[facility] [address] [place], [address] Lymphocytes/100 WBC (Bld) 22.6 % Normal 19-41 [facility] Comment on above: Order Comment: 109.1 Performed By: #### L 100.0100 ####[facility] [address] [place], [address] MCH (RBC) [Entitic mass] 30.1 pg Normal 27.0-32.0 [facility] Comment on above: Order Comment: 109.1 Performed By: #### L 100.0100 ####[facility] [address] [place], [address] MCHC (RBC) [Mass/Vol] 32.9 g/dL Normal 32-36 [facility] Comment on above: Order Comment: 109.1 Performed By: #### L 100.0100 ####[facility] [address] [place], [address] MCV (RBC) [Entitic vol] 91.4 fL Normal 80-94 [facility] Comment on above: Order Comment: 109.1 Performed By: #### L 100.0100 ####[facility] [address] [place], [address] Monocytes/100 WBC (Bld) 9.3 % Normal 0-10 [facility] Comment on above: Order Comment: 109.1 Performed By: #### L 100.0100 ####[facility] [address] [place], [address] Neutrophils/100 WBC (Bld) 66.9 % Normal 47-70 [facility] Comment on above: Order Comment: 109.1 Performed By: #### L 100.0100 ####[facility] [address] [place], [address] Nucleated RBC (Bld) [#/Vol] 0 10*3/uL Normal 0-5 [facility] Comment on above: Order Comment: 109.1 Performed By: #### L 100.0100 ####[facility] [address] [place], [address] Platelet mean volume (Bld) [Entitic vol] 11.0 fL Normal 6.2-12.0 [facility] Comment on above: Order Comment: 109.1 Performed By: #### L 100.0100 ####[facility] [address] [place], [address] Platelets (Bld) [#/Vol] 211 10*3/uL Normal 150-450 [facility] Comment on above: Order Comment: 109.1 Performed By: #### L 100.0100 ####[facility] [address] [place], [address] RBC (Bld) [#/Vol] 4.55 10*6/uL Low 4.6-6.2 [facility] Comment on above: Order Comment: 109.1 Performed By: #### L 100.0100 ####[facility] [address] [place], [address] RDW SD 41.5 fl Normal 35.1-43.9 [facility] Comment on above: Order Comment: 109.1 Performed By: #### L 100.0100 ####[facility] [address] [place], [address] WBC (Bld) [#/Vol] 9.4 10*3/uL Normal 4.4-11.0 [facility] Comment on above: Order Comment: 109.1 Performed By: #### L 100.0100 ####[facility] [address] [place], [address] Eosinophil percentageOrdered By: Renard Burgos on 04-29-2024 Eosinophils/100 WBC (Bld) 0.4 % 0-5 [facility] Erythrocyte distribution wid th ratioOrdered By: Renard Burgos on 04-29-2024 Erythrocyte distribution width (RBC) [Ratio] 12.6 % 11.6-14.6 [facility] Erythrocyte distribution wid th standard deviationOrdered By: Renard Burgos on 04-29-2024 Erythrocyte distribution width (RBC) [Entitic vol] 41.5 fL 35.1-43.9 [facility] Hematocrit Auto (Bld) [Volum e fraction]Ordered By: Renard Burgos on 04-29-2024 Hematocrit (Bld) [Volume fraction] 41.6 % 40-54 [facility] Hemoglobin measurementOrdere d By: Renard Burgos on 04-29-2024 Hemoglobin (Bld) [Mass/Vol] 13.7 g/dL 13.0-16.5 [facility] Immature granulocytes/100 WB C Auto (Bld)Ordered By: Renard Burgos on 04-29-2024 Immature granulocytes/100 WBC (Bld) 0.400 % 0.0-0.9 [facility] Comment on above: IG% - Immature Granu locytes (promyelocytes, myelocytes and metamyelocytes) > 1% indicates that a LEFT SHIFT is Present. Lymphocytes Auto (Unsp spec) [#/Vol]Ordered By: Renard Burgos on 04-29-2024 Lymphocytes (Bld) [#/Vol] 2.11 10*3/uL 0.83-4.51 [facility] Lymphocytes/100 WBC Auto (Un sp spec)Ordered By: Renard Burgos on 04-29-2024 Lymphocytes/100 WBC (Bld) 22.6 % 19-41 [facility] MCV (mean corpuscular volume ) determinationOrdered By: Renard Burgos on 04-29-2024 MCV (RBC) [Entitic vol] 91.4 fL 80-94 [facility] Mean corpuscular hemoglobin (MCH) determinationOrdered By: Renard Burgos on 04-29-2024 MCH (RBC) [Entitic mass] 30.1 pg 27.0-32.0 [facility] Mean corpuscular hemoglobin concentration (MCHC) determinationOrdered By: Renard Burgos on 04-29-2024 MCHC (RBC) [Mass/Vol] 32.9 g/dL 32-36 [facility] Mean platelet volume determi nationOrdered By: Renard Burgos on 04-29-2024 Platelet mean volume (Bld) [Entitic vol] 11.0 fL 6.2-12.0 [facility] Monocyte percentageOrdered B y: Renard Burgos on 04-29-2024 Monocytes/100 WBC (Bld) 9.3 % 0-10 [facility] Neutrophil percentageOrdered By: Renard Burgos on 04-29-2024 Neutrophils/100 WBC (Bld) 66.9 % 47-70 [facility] Nucleated red blood cell per centageOrdered By: Renard Burgos on 04-29-2024 Nucleated RBC/100 WBC (Bld) [Ratio] 0 % 0-5 [facility] Platelet countOrdered By: Garrick Bhatt on 04-29-2024 Platelets (Bld) [#/Vol] 211 10*3/uL 150-450 [facility] RBC Auto (Bld) [#/Vol]Ordere d By: Renard Burgos on 04-29-2024 RBC (Bld) [#/Vol] 4.55 10*6/uL Low 4.6-6.2 [facility] White blood cell (WBC) count Ordered By: Renard Burgos on 04-29-2024 WBC (Bld) [#/Vol] 9.4 10*3/uL 4.4-11.0 [facility] Absolute neutrophil countOrd ered By: Renard Burgos on 04-22-2024 Neutrophils (Bld) [#/Vol] 8.1 10*3/uL High 2.0-7.7 [facility] Basophil percentageOrdered B y: Renard Burgos on 04-22-2024 Basophils/100 WBC (Bld) 0.5 % 0-1 [facility] CBC W/Diff, Automatedon 04-01 Absolute Lymph 2.61 X10 3/uL Normal 0.83-4.51 [facility] Comment on above: Order Comment: 109-1 Performed By: #### L 100.0100 ####[facility] [address] [place], [address] Absolute Neut 8.1 X10 3/uL High 2.0-7.7 [facility] Comment on above: Order Comment: 109-1 Performed By: #### L 100.0100 ####[facility] [address] [place], [address] Basophils/100 WBC (Bld) 0.5 % Normal 0-1 [facility] Comment on above: Order Comment: 109-1 Performed By: #### L 100.0100 ####[facility] [address] [place], [address] Eosinophils/100 WBC (Bld) 0.4 % Normal 0-5 [facility] Comment on above: Order Comment: 109-1 Performed By: #### L 100.0100 ####[facility] [address] [place], [address] Erythrocyte distribution width (RBC) [Ratio] 12.6 % Normal 11.6-14.6 [facility] Comment on above: Order Comment: 109-1 Performed By: #### L 100.0100 ####[facility] [address] [place], [address] Hematocrit (Bld) [Volume fraction] 44.5 % Normal 40-54 [facility] Comment on above: Order Comment: 109-1 Performed By: #### L 100.0100 ####[facility] [address] [place], [address] Hemoglobin (Bld) [Mass/Vol] 14.3 g/dL Normal 13.0-16.5 [facility] Comment on above: Order Comment: 109-1 Performed By: #### L 100.0100 ####[facility] [address] [place], [address] IG% 0.300 Normal 0.0-0.9 [facility] Comment on above: Order Comment: 109-1 Result Comment: IG% - Immature Granulocytes (promyelocytes, myelocytes andmetamyelocytes) > 1% indicates that a LEFT SHIFT is Present. Performed By: #### L 100.0100 ####[facility] [address] [place], [address] Lymphocytes/100 WBC (Bld) 22.0 % Normal 19-41 [facility] Comment on above: Order Comment: 109-1 Performed By: #### L 100.0100 ####[facility] [address] [place], [address] MCH (RBC) [Entitic mass] 29.7 pg Normal 27.0-32.0 [facility] Comment on above: Order Comment: 109-1 Performed By: #### L 100.0100 ####[facility] [address] [place], [address] MCHC (RBC) [Mass/Vol] 32.1 g/dL Normal 32-36 [facility] Comment on above: Order Comment: 109-1 Performed By: #### L 100.0100 ####[facility] [address] [place], [address] MCV (RBC) [Entitic vol] 92.5 fL Normal 80-94 [facility] Comment on above: Order Comment: 109-1 Performed By: #### L 100.0100 ####[facility] [address] [place], [address] Monocytes/100 WBC (Bld) 8.3 % Normal 0-10 [facility] Comment on above: Order Comment: 109-1 Performed By: #### L 100.0100 ####[facility] [address] [place], [address] Neutrophils/100 WBC (Bld) 68.5 % Normal 47-70 [facility] Comment on above: Order Comment: 109-1 Performed By: #### L 100.0100 ####[facility] [address] [place], [address] Nucleated RBC (Bld) [#/Vol] 0 10*3/uL Normal 0-5 [facility] Comment on above: Order Comment: 109-1 Performed By: #### L 100.0100 ####[facility] [address] [place], [address] Platelet mean volume (Bld) [Entitic vol] 11.0 fL Normal 6.2-12.0 [facility] Comment on above: Order Comment: 109-1 Performed By: #### L 100.0100 ####[facility] [address] [place], [address] Platelets (Bld) [#/Vol] 190 10*3/uL Normal 150-450 [facility] Comment on above: Order Comment: 109-1 Performed By: #### L 100.0100 ####[facility] [address] [place], [address] RBC (Bld) [#/Vol] 4.81 10*6/uL Normal 4.6-6.2 [facility] Comment on above: Order Comment: 109-1 Performed By: #### L 100.0100 ####[facility] [address] [place], [address] RDW SD 43.0 fl Normal 35.1-43.9 [facility] Comment on above: Order Comment: 109-1 Performed By: #### L 100.0100 ####[facility] [address] [place], [address] WBC (Bld) [#/Vol] 11.9 10*3/uL High 4.4-11.0 [facility] Comment on above: Order Comment: 109-1 Performed By: #### L 100.0100 ####[facility] [address] [place], [address] Eosinophil percentageOrdered By: Renard Burgos on 04-22-2024 Eosinophils/100 WBC (Bld) 0.4 % 0-5 [facility] Erythrocyte distribution wid th ratioOrdered By: Renard Burgos on 04-22-2024 Erythrocyte distribution width (RBC) [Ratio] 12.6 % 11.6-14.6 [facility] Erythrocyte distribution wid th standard deviationOrdered By: Renard Burgos on 04-22-2024 Erythrocyte distribution width (RBC) [Entitic vol] 43.0 fL 35.1-43.9 [facility] Hematocrit Auto (Bld) [Volum e fraction]Ordered By: Renard Burgos on 04-22-2024 Hematocrit (Bld) [Volume fraction] 44.5 % 40-54 [facility] Hemoglobin measurementOrdere d By: Renard Burgos on 04-22-2024 Hemoglobin (Bld) [Mass/Vol] 14.3 g/dL 13.0-16.5 [facility] Immature granulocytes/100 WB C Auto (Bld)Ordered By: Renard Burgos on 04-22-2024 Immature granulocytes/100 WBC (Bld) 0.300 % 0.0-0.9 [facility] Comment on above: IG% - Immature Granu locytes (promyelocytes, myelocytes and metamyelocytes) > 1% indicates that a LEFT SHIFT is Present. Lymphocytes Auto (Unsp spec) [#/Vol]Ordered By: Renard Burgos on 04-22-2024 Lymphocytes (Bld) [#/Vol] 2.61 10*3/uL 0.83-4.51 [facility] Lymphocytes/100 WBC Auto (Un sp spec)Ordered By: Renard Burgos on 04-22-2024 Lymphocytes/100 WBC (Bld) 22.0 % 19-41 [facility] MCV (mean corpuscular volume ) determinationOrdered By: Renard Burgos on 04-22-2024 MCV (RBC) [Entitic vol] 92.5 fL 80-94 [facility] Mean corpuscular hemoglobin (MCH) determinationOrdered By: Renard Burgos on 04-22-2024 MCH (RBC) [Entitic mass] 29.7 pg 27.0-32.0 [facility] Mean corpuscular hemoglobin concentration (MCHC) determinationOrdered By: Renard Burgos on 04-22-2024 MCHC (RBC) [Mass/Vol] 32.1 g/dL 32-36 [facility] Mean platelet volume determi nationOrdered By: Renard Burgos on 04-22-2024 Platelet mean volume (Bld) [Entitic vol] 11.0 fL 6.2-12.0 [facility] Monocyte percentageOrdered B y: Renard Burgos on 04-22-2024 Monocytes/100 WBC (Bld) 8.3 % 0-10 [facility] Neutrophil percentageOrdered By: Renard Burgos on 04-22-2024 Neutrophils/100 WBC (Bld) 68.5 % 47-70 [facility] Nucleated red blood cell per centageOrdered By: Renard Burgos on 04-22-2024 Nucleated RBC/100 WBC (Bld) [Ratio] 0 % 0-5 [facility] Platelet countOrdered By: Garrick Bhatt on 04-22-2024 Platelets (Bld) [#/Vol] 190 10*3/uL 150-450 [facility] RBC Auto (Bld) [#/Vol]Ordere d By: Renard Burgos on 04-22-2024 RBC (Bld) [#/Vol] 4.81 10*6/uL 4.6-6.2 [facility] White blood cell (WBC) count Ordered By: Renard Burgos on 04-22-2024 WBC (Bld) [#/Vol] 11.9 10*3/uL High 4.4-11.0 [facility] Absolute neutrophil countOrd ered By: Renard Burgos on 04-15-2024 Neutrophils (Bld) [#/Vol] 8.7 10*3/uL High 2.0-7.7 [facility] Basophil percentageOrdered B y: Renard Burgos on 04-15-2024 Basophils/100 WBC (Bld) 0.3 % 0-1 [facility] Bilirubin, totalOrdered By: Renard Burgos on 04-15-2024 Bilirubin [Mass/Vol] 0.30 mg/dL 0.20-1.00 [facility] Comment on above: For patients on eltr ombopag therapy, use of Dimension Nora TBIL is not recommended. Bilirubin.direct [Mass/Vol]O rdered By: Renard Burgos on 04-15-2024 Direct Bilirubin < 0.05 mg/dL 0.00-0.30 [facility] CBC W/Diff, Automatedon 03-31 Absolute Lymph 1.93 X10 3/uL Normal 0.83-4.51 [facility] Comment on above: Order Comment: 109-1 Performed By: #### L 100.0100, L500.3400 ####[facility] [address] [place], [address] Absolute Neut 8.7 X10 3/uL High 2.0-7.7 [facility] Comment on above: Order Comment: 109-1 Performed By: #### L 100.0100, L500.3400 ####[facility] [address] [place], [address] Basophils/100 WBC (Bld) 0.3 % Normal 0-1 [facility] Comment on above: Order Comment: 109-1 Performed By: #### L 100.0100, L500.3400 ####[facility] [address] [place], [address] Eosinophils/100 WBC (Bld) 0.4 % Normal 0-5 [facility] Comment on above: Order Comment: 109-1 Performed By: #### L 100.0100, L500.3400 ####[facility] [address] [place], [address] Erythrocyte distribution width (RBC) [Ratio] 12.8 % Normal 11.6-14.6 [facility] Comment on above: Order Comment: 109-1 Performed By: #### L 100.0100, L500.3400 ####[facility] [address] [place], [address] Hematocrit (Bld) [Volume fraction] 42.5 % Normal 40-54 [facility] Comment on above: Order Comment: 109-1 Performed By: #### L 100.0100, L500.3400 ####[facility] [address] [place], [address] Hemoglobin (Bld) [Mass/Vol] 13.7 g/dL Normal 13.0-16.5 [facility] Comment on above: Order Comment: 109-1 Performed By: #### L 100.0100, L500.3400 ####[facility] [address] [place], [address] IG% 0.400 Normal 0.0-0.9 [facility] Comment on above: Order Comment: 109-1 Result Comment: IG% - Immature Granulocytes (promyelocytes, myelocytes andmetamyelocytes) > 1% indicates that a LEFT SHIFT is Present. Performed By: #### L 100.0100, L500.3400 ####[facility] [address] [place], [address] Lymphocytes/100 WBC (Bld) 16.9 % Low 19-41 [facility] Comment on above: Order Comment: 109-1 Performed By: #### L 100.0100, L500.3400 ####[facility] [address] [place], [address] MCH (RBC) [Entitic mass] 29.5 pg Normal 27.0-32.0 [facility] Comment on above: Order Comment: 109-1 Performed By: #### L 100.0100, L500.3400 ####[facility] [address] [place], [address] MCHC (RBC) [Mass/Vol] 32.2 g/dL Normal 32-36 [facility] Comment on above: Order Comment: 109-1 Performed By: #### L 100.0100, L500.3400 ####[facility] [address] [place], [address] MCV (RBC) [Entitic vol] 91.6 fL Normal 80-94 [facility] Comment on above: Order Comment: 109-1 Performed By: #### L 100.0100, L500.3400 ####[facility] [address] [place], [address] Monocytes/100 WBC (Bld) 6.0 % Normal 0-10 [facility] Comment on above: Order Comment: 109-1 Performed By: #### L 100.0100, L500.3400 ####[facility] [address] [place], [address] Neutrophils/100 WBC (Bld) 76.0 % High 47-70 [facility] Comment on above: Order Comment: 109-1 Performed By: #### L 100.0100, L500.3400 ####[facility] [address] [place], [address] Nucleated RBC (Bld) [#/Vol] 0 10*3/uL Normal 0-5 [facility] Comment on above: Order Comment: 109-1 Performed By: #### L 100.0100, L500.3400 ####[facility] [address] [place], [address] Platelet mean volume (Bld) [Entitic vol] 11.1 fL Normal 6.2-12.0 [facility] Comment on above: Order Comment: 109-1 Performed By: #### L 100.0100, L500.3400 ####[facility] [address] [place], [address] Platelets (Bld) [#/Vol] 197 10*3/uL Normal 150-450 [facility] Comment on above: Order Comment: 109-1 Performed By: #### L 100.0100, L500.3400 ####[facility] [address] [place], [address] RBC (Bld) [#/Vol] 4.64 10*6/uL Normal 4.6-6.2 [facility] Comment on above: Order Comment: 109-1 Performed By: #### L 100.0100, L500.3400 ####[facility] [address] [place], [address] RDW SD 42.5 fl Normal 35.1-43.9 [facility] Comment on above: Order Comment: 109-1 Performed By: #### L 100.0100, L500.3400 ####[facility] [address] [place], [address] WBC (Bld) [#/Vol] 11.4 10*3/uL High 4.4-11.0 [facility] Comment on above: Order Comment: 109-1 Performed By: #### L 100.0100, L500.3400 ####[facility] [address] [place], [address] Eosinophil percentageOrdered By: Renard Burgos on 04-15-2024 Eosinophils/100 WBC (Bld) 0.4 % 0-5 [facility] Erythrocyte distribution wid th ratioOrdered By: Renard Burgos on 04-15-2024 Erythrocyte distribution width (RBC) [Ratio] 12.8 % 11.6-14.6 [facility] Erythrocyte distribution wid th standard deviationOrdered By: Renard Burgos on 04-15-2024 Erythrocyte distribution width (RBC) [Entitic vol] 42.5 fL 35.1-43.9 [facility] Hematocrit Auto (Bld) [Volum e fraction]Ordered By: Renard Burgos on 04-15-2024 Hematocrit (Bld) [Volume fraction] 42.5 % 40-54 [facility] Hemoglobin measurementOrdere d By: Renard Burgos on 04-15-2024 Hemoglobin (Bld) [Mass/Vol] 13.7 g/dL 13.0-16.5 [facility] Immature granulocytes/100 WB C Auto (Bld)Ordered By: Renard Burgos on 04-15-2024 Immature granulocytes/100 WBC (Bld) 0.400 % 0.0-0.9 [facility] Comment on above: IG% - Immature Granu locytes (promyelocytes, myelocytes and metamyelocytes) > 1% indicates that a LEFT SHIFT is Present. Laboratory - Chemistry and C hemistry - challengeOrdered By: Renard Burgos on 04-15-2024 AST [Catalytic activity/Vol] 18 U/L 15-37 [facility] Comment on above: Slight Hemolysis, Re sult may be falsely increased. Liver Profileon 04-15-2024 Albumin [Mass/Vol] 2.9 g/dL Low 3.2-5.0 [facility] Comment on above: Order Comment: 109-1 Performed By: #### L 100.0100, L500.3400 ####[facility] [address] [place], [address] ALK P 126 U/L High 45-117 [facility] Comment on above: Order Comment: 109-1 Performed By: #### L 100.0100, L500.3400 ####[facility] [address] [place], [address] ALT [Catalytic activity/Vol] 21 U/L Normal 16-61 [facility] Comment on above: Order Comment: 109-1 Performed By: #### L 100.0100, L500.3400 ####[facility] [address] [place], [address] AST [Catalytic activity/Vol] 18 U/L Normal 15-37 [facility] Comment on above: Order Comment: 109-1 Result Comment: Slig ht Hemolysis, Result may be falsely increased. Performed By: #### L 100.0100, L500.3400 ####[facility] [address] [place], [address] Bilirubin [Mass/Vol] 0.30 mg/dL Normal 0.20-1.00 [facility] Comment on above: Order Comment: 109-1 Result Comment: For patients on eltrombopag therapy, use of Dimension Nora TBIL is not recommended. Performed By: #### L 100.0100, L500.3400 ####[facility] [address] [place], [address] D BILI < 0.05 Normal 0.00-0.30 [facility] Comment on above: Order Comment: 109-1 Performed By: #### L 100.0100, L500.3400 ####[facility] [address] [place], [address] Globulin (S) [Mass/Vol] 3.0 g/dL Normal 2.2-4.2 [facility] Comment on above: Order Comment: 109-1 Performed By: #### L 100.0100, L500.3400 ####[facility] [address] [place], [address] T PROT 5.9 g/dL Low 6.4-8.2 [facility] Comment on above: Order Comment: 109-1 Performed By: #### L 100.0100, L500.3400 ####[facility] [address] [place], [address] Lymphocytes Auto (Unsp spec) [#/Vol]Ordered By: Renard Burgos on 04-15-2024 Lymphocytes (Bld) [#/Vol] 1.93 10*3/uL 0.83-4.51 [facility] Lymphocytes/100 WBC Auto (Un sp spec)Ordered By: Renard Burgos on 04-15-2024 Lymphocytes/100 WBC (Bld) 16.9 % Low 19-41 [facility] MCV (mean corpuscular volume ) determinationOrdered By: Renard Burgos on 04-15-2024 MCV (RBC) [Entitic vol] 91.6 fL 80-94 [facility] Mean corpuscular hemoglobin (MCH) determinationOrdered By: Renard Burgos on 04-15-2024 MCH (RBC) [Entitic mass] 29.5 pg 27.0-32.0 [facility] Mean corpuscular hemoglobin concentration (MCHC) determinationOrdered By: Renard Burgos on 04-15-2024 MCHC (RBC) [Mass/Vol] 32.2 g/dL 32-36 [facility] Mean platelet volume determi nationOrdered By: Renard Burgos on 04-15-2024 Platelet mean volume (Bld) [Entitic vol] 11.1 fL 6.2-12.0 [facility] Monocyte percentageOrdered B y: Renard Burgos on 04-15-2024 Monocytes/100 WBC (Bld) 6.0 % 0-10 [facility] Neutrophil percentageOrdered By: Renard Burgos on 04-15-2024 Neutrophils/100 WBC (Bld) 76.0 % High 47-70 [facility] Nucleated red blood cell per centageOrdered By: Renard Burgos on 04-15-2024 Nucleated RBC/100 WBC (Bld) [Ratio] 0 % 0-5 [facility] Platelet countOrdered By: Garrick Bhatt on 04-15-2024 Platelets (Bld) [#/Vol] 197 10*3/uL 150-450 [facility] RBC Auto (Bld) [#/Vol]Ordere d By: Renard Burgos on 04-15-2024 RBC (Bld) [#/Vol] 4.64 10*6/uL 4.6-6.2 [facility] Serum globulin measurementOr dered By: Renard Burgos on 04-15-2024 Globulin (S) [Mass/Vol] 3.0 g/dL 2.2-4.2 [facility] Serum or plasma alanine kay otransferase (ALT) measurementOrdered By: Renard Burgos on 04-15-2024 ALT [Catalytic activity/Vol] 21 U/L 16-61 [facility] Serum or plasma albumin gordy urement (mass/volume)Ordered By: Renard Burgos on 04-15-2024 Albumin [Mass/Vol] 2.9 g/dL Low 3.2-5.0 [facility] Serum or plasma alkaline trace sphatase measurementOrdered By: Renard Burgos on 04-15-2024 ALP [Catalytic activity/Vol] 126 U/L High 45-117 [facility] Total proteinOrdered By: Lyubov Burgos on 04-15-2024 Protein [Mass/Vol] 5.9 g/dL Low 6.4-8.2 [facility] White blood cell (WBC) count Ordered By: Renard Burgos on 04-15-2024 WBC (Bld) [#/Vol] 11.4 10*3/uL High 4.4-11.0 [facility] Absolute neutrophil countOrd ered By: Renard Burgos on 04-08-2024 Neutrophils (Bld) [#/Vol] 5.7 10*3/uL 2.0-7.7 [facility] Basophil percentageOrdered B y: Renard Burgos on 04-08-2024 Basophils/100 WBC (Bld) 0.6 % 0-1 [facility] CBC W/Diff, Automatedon Absolute Lymph 2.27 X10 3/uL Normal 0.83-4.51 [facility] Comment on above: Order Comment: 109.1 Performed By: #### L 100.0100 ####[facility] [address] [place], [address] Absolute Neut 5.7 X10 3/uL Normal 2.0-7.7 [facility] Comment on above: Order Comment: 109.1 Performed By: #### L 100.0100 ####[facility] [address] [place], [address] Basophils/100 WBC (Bld) 0.6 % Normal 0-1 [facility] Comment on above: Order Comment: 109.1 Performed By: #### L 100.0100 ####[facility] [address] [place], [address] Eosinophils/100 WBC (Bld) 0.5 % Normal 0-5 [facility] Comment on above: Order Comment: 109.1 Performed By: #### L 100.0100 ####[facility] [address] [place], [address] Erythrocyte distribution width (RBC) [Ratio] 12.6 % Normal 11.6-14.6 [facility] Comment on above: Order Comment: 109.1 Performed By: #### L 100.0100 ####[facility] [address] [place], [address] Hematocrit (Bld) [Volume fraction] 41.2 % Normal 40-54 [facility] Comment on above: Order Comment: 109.1 Performed By: #### L 100.0100 ####[facility] [address] [place], [address] Hemoglobin (Bld) [Mass/Vol] 13.3 g/dL Normal 13.0-16.5 [facility] Comment on above: Order Comment: 109.1 Performed By: #### L 100.0100 ####[facility] [address] [place], [address] IG% 0.200 Normal 0.0-0.9 [facility] Comment on above: Order Comment: 109.1 Result Comment: IG% - Immature Granulocytes (promyelocytes, myelocytes andmetamyelocytes) > 1% indicates that a LEFT SHIFT is Present. Performed By: #### L 100.0100 ####[facility] [address] [place], [address] Lymphocytes/100 WBC (Bld) 26.0 % Normal 19-41 [facility] Comment on above: Order Comment: 109.1 Performed By: #### L 100.0100 ####[facility] [address] [place], [address] MCH (RBC) [Entitic mass] 29.6 pg Normal 27.0-32.0 [facility] Comment on above: Order Comment: 109.1 Performed By: #### L 100.0100 ####[facility] [address] [place], [address] MCHC (RBC) [Mass/Vol] 32.3 g/dL Normal 32-36 [facility] Comment on above: Order Comment: 109.1 Performed By: #### L 100.0100 ####[facility] [address] [place], [address] MCV (RBC) [Entitic vol] 91.8 fL Normal 80-94 [facility] Comment on above: Order Comment: 109.1 Performed By: #### L 100.0100 ####[facility] [address] [place], [address] Monocytes/100 WBC (Bld) 7.8 % Normal 0-10 [facility] Comment on above: Order Comment: 109.1 Performed By: #### L 100.0100 ####[facility] [address] [place], [address] Neutrophils/100 WBC (Bld) 64.9 % Normal 47-70 [facility] Comment on above: Order Comment: 109.1 Performed By: #### L 100.0100 ####[facility] [address] [place], [address] Nucleated RBC (Bld) [#/Vol] 0 10*3/uL Normal 0-5 [facility] Comment on above: Order Comment: 109.1 Performed By: #### L 100.0100 ####[facility] [address] [place], [address] Platelet mean volume (Bld) [Entitic vol] 10.8 fL Normal 6.2-12.0 [facility] Comment on above: Order Comment: 109.1 Performed By: #### L 100.0100 ####[facility] [address] [place], [address] Platelets (Bld) [#/Vol] 208 10*3/uL Normal 150-450 [facility] Comment on above: Order Comment: 109.1 Performed By: #### L 100.0100 ####[facility] [address] [place], [address] RBC (Bld) [#/Vol] 4.49 10*6/uL Low 4.6-6.2 [facility] Comment on above: Order Comment: 109.1 Performed By: #### L 100.0100 ####[facility] [address] [place], [address] RDW SD 42.4 fl Normal 35.1-43.9 [facility] Comment on above: Order Comment: 109.1 Performed By: #### L 100.0100 ####[facility] [address] [place], [address] WBC (Bld) [#/Vol] 8.7 10*3/uL Normal 4.4-11.0 [facility] Comment on above: Order Comment: 109.1 Performed By: #### L 100.0100 ####[facility] [address] [place], [address] Eosinophil percentageOrdered By: Renard Burgos on 04-08-2024 Eosinophils/100 WBC (Bld) 0.5 % 0-5 [facility] Erythrocyte distribution wid th ratioOrdered By: Renard Burgos on 04-08-2024 Erythrocyte distribution width (RBC) [Ratio] 12.6 % 11.6-14.6 [facility] Erythrocyte distribution wid th standard deviationOrdered By: Renard Burgos on 04-08-2024 Erythrocyte distribution width (RBC) [Entitic vol] 42.4 fL 35.1-43.9 [facility] Hematocrit Auto (Bld) [Volum e fraction]Ordered By: Renard Burgos on 04-08-2024 Hematocrit (Bld) [Volume fraction] 41.2 % 40-54 [facility] Hemoglobin measurementOrdere d By: Renard Burgos on 04-08-2024 Hemoglobin (Bld) [Mass/Vol] 13.3 g/dL 13.0-16.5 [facility] Immature granulocytes/100 WB C Auto (Bld)Ordered By: Renard Burgos on 04-08-2024 Immature granulocytes/100 WBC (Bld) 0.200 % 0.0-0.9 [facility] Comment on above: IG% - Immature Granu locytes (promyelocytes, myelocytes and metamyelocytes) > 1% indicates that a LEFT SHIFT is Present. Lymphocytes Auto (Unsp spec) [#/Vol]Ordered By: Renard Burgos on 04-08-2024 Lymphocytes (Bld) [#/Vol] 2.27 10*3/uL 0.83-4.51 [facility] Lymphocytes/100 WBC Auto (Un sp spec)Ordered By: Renard Burgos on 04-08-2024 Lymphocytes/100 WBC (Bld) 26.0 % 19-41 [facility] MCV (mean corpuscular volume ) determinationOrdered By: Renard Burgos on 04-08-2024 MCV (RBC) [Entitic vol] 91.8 fL 80-94 [facility] Mean corpuscular hemoglobin (MCH) determinationOrdered By: Renard Burgos on 04-08-2024 MCH (RBC) [Entitic mass] 29.6 pg 27.0-32.0 [facility] Mean corpuscular hemoglobin concentration (MCHC) determinationOrdered By: Renard Burgos on 04-08-2024 MCHC (RBC) [Mass/Vol] 32.3 g/dL 32-36 [facility] Mean platelet volume determi nationOrdered By: Renard Burgos on 04-08-2024 Platelet mean volume (Bld) [Entitic vol] 10.8 fL 6.2-12.0 [facility] Monocyte percentageOrdered B y: Renard Burgos on 04-08-2024 Monocytes/100 WBC (Bld) 7.8 % 0-10 [facility] Neutrophil percentageOrdered By: Renard Burgos on 04-08-2024 Neutrophils/100 WBC (Bld) 64.9 % 47-70 [facility] Nucleated red blood cell per centageOrdered By: Renard Burgos on 04-08-2024 Nucleated RBC/100 WBC (Bld) [Ratio] 0 % 0-5 [facility] Platelet countOrdered By: Garrick Bhatt on 04-08-2024 Platelets (Bld) [#/Vol] 208 10*3/uL 150-450 [facility] RBC Auto (Bld) [#/Vol]Ordere d By: Rneard Burgos on 04-08-2024 RBC (Bld) [#/Vol] 4.49 10*6/uL Low 4.6-6.2 [facility] White blood cell (WBC) count Ordered By: Renard Burgos on 04-08-2024 WBC (Bld) [#/Vol] 8.7 10*3/uL 4.4-11.0 [facility] Absolute neutrophil countOrd ered By: Renard Burgos on 04-01-2024 Neutrophils (Bld) [#/Vol] 7.1 10*3/uL 2.0-7.7 [facility] Basophil percentageOrdered B y: Renard Burgos on 04-01-2024 Basophils/100 WBC (Bld) 0.4 % 0-1 [facility] CBC W/Diff, Automatedon 12- Absolute Lymph 1.97 X10 3/uL Normal 0.83-4.51 [facility] Comment on above: Order Comment: 109-1 Performed By: #### L 100.0100 ####[facility] [address] [place], [address] Absolute Neut 7.1 X10 3/uL Normal 2.0-7.7 [facility] Comment on above: Order Comment: 109-1 Performed By: #### L 100.0100 ####[facility] [address] [place], [address] Basophils/100 WBC (Bld) 0.4 % Normal 0-1 [facility] Comment on above: Order Comment: 109-1 Performed By: #### L 100.0100 ####[facility] [address] [place], [address] Eosinophils/100 WBC (Bld) 0.4 % Normal 0-5 [facility] Comment on above: Order Comment: 109-1 Performed By: #### L 100.0100 ####[facility] [address] [place], [address] Erythrocyte distribution width (RBC) [Ratio] 12.6 % Normal 11.6-14.6 [facility] Comment on above: Order Comment: 109-1 Performed By: #### L 100.0100 ####[facility] [address] [place], [address] Hematocrit (Bld) [Volume fraction] 41.7 % Normal 40-54 [facility] Comment on above: Order Comment: 109-1 Performed By: #### L 100.0100 ####[facility] [address] [place], [address] Hemoglobin (Bld) [Mass/Vol] 13.6 g/dL Normal 13.0-16.5 [facility] Comment on above: Order Comment: 109-1 Performed By: #### L 100.0100 ####[facility] [address] [place], [address] IG% 0.300 Normal 0.0-0.9 [facility] Comment on above: Order Comment: 109-1 Result Comment: IG% - Immature Granulocytes (promyelocytes, myelocytes andmetamyelocytes) > 1% indicates that a LEFT SHIFT is Present. Performed By: #### L 100.0100 ####[facility] [address] [place], [address] Lymphocytes/100 WBC (Bld) 20.0 % Normal 19-41 [facility] Comment on above: Order Comment: 109-1 Performed By: #### L 100.0100 ####[facility] [address] [place], [address] MCH (RBC) [Entitic mass] 29.7 pg Normal 27.0-32.0 [facility] Comment on above: Order Comment: 109-1 Performed By: #### L 100.0100 ####[facility] [address] [place], [address] MCHC (RBC) [Mass/Vol] 32.6 g/dL Normal 32-36 [facility] Comment on above: Order Comment: 109-1 Performed By: #### L 100.0100 ####[facility] [address] [place], [address] MCV (RBC) [Entitic vol] 91.0 fL Normal 80-94 [facility] Comment on above: Order Comment: 109-1 Performed By: #### L 100.0100 ####[facility] [address] [place], [address] Monocytes/100 WBC (Bld) 7.1 % Normal 0-10 [facility] Comment on above: Order Comment: 109-1 Performed By: #### L 100.0100 ####[facility] [address] [place], [address] Neutrophils/100 WBC (Bld) 71.8 % High 47-70 [facility] Comment on above: Order Comment: 109-1 Performed By: #### L 100.0100 ####[facility] [address] [place], [address] Nucleated RBC (Bld) [#/Vol] 0 10*3/uL Normal 0-5 [facility] Comment on above: Order Comment: 109-1 Performed By: #### L 100.0100 ####[facility] [address] [place], [address] Platelet mean volume (Bld) [Entitic vol] 11.3 fL Normal 6.2-12.0 [facility] Comment on above: Order Comment: 109-1 Performed By: #### L 100.0100 ####[facility] [address] [place], [address] Platelets (Bld) [#/Vol] 195 10*3/uL Normal 150-450 [facility] Comment on above: Order Comment: 109-1 Performed By: #### L 100.0100 ####[facility] [address] [place], [address] RBC (Bld) [#/Vol] 4.58 10*6/uL Low 4.6-6.2 [facility] Comment on above: Order Comment: 109-1 Performed By: #### L 100.0100 ####[facility] [address] [place], [address] RDW SD 41.2 fl Normal 35.1-43.9 [facility] Comment on above: Order Comment: 109-1 Performed By: #### L 100.0100 ####[facility] [address] [place], [address] WBC (Bld) [#/Vol] 9.8 10*3/uL Normal 4.4-11.0 [facility] Comment on above: Order Comment: 109-1 Performed By: #### L 100.0100 ####[facility] [address] [place], [address] Eosinophil percentageOrdered By: Renard Burgos on 04-01-2024 Eosinophils/100 WBC (Bld) 0.4 % 0-5 [facility] Erythrocyte distribution wid th ratioOrdered By: Renard Burgos on 04-01-2024 Erythrocyte distribution width (RBC) [Ratio] 12.6 % 11.6-14.6 [facility] Erythrocyte distribution wid th standard deviationOrdered By: Renard Burgos on 04-01-2024 Erythrocyte distribution width (RBC) [Entitic vol] 41.2 fL 35.1-43.9 [facility] Hematocrit Auto (Bld) [Volum e fraction]Ordered By: Renard Burgos on 04-01-2024 Hematocrit (Bld) [Volume fraction] 41.7 % 40-54 [facility] Hemoglobin measurementOrdere d By: Renard Burgos on 04-01-2024 Hemoglobin (Bld) [Mass/Vol] 13.6 g/dL 13.0-16.5 [facility] Immature granulocytes/100 WB C Auto (Bld)Ordered By: Renard Burgos on 04-01-2024 Immature granulocytes/100 WBC (Bld) 0.300 % 0.0-0.9 [facility] Comment on above: IG% - Immature Granu locytes (promyelocytes, myelocytes and metamyelocytes) > 1% indicates that a LEFT SHIFT is Present. Lymphocytes Auto (Unsp spec) [#/Vol]Ordered By: Renard Burgos on 04-01-2024 Lymphocytes (Bld) [#/Vol] 1.97 10*3/uL 0.83-4.51 [facility] Lymphocytes/100 WBC Auto (Un sp spec)Ordered By: Renard Burgos on 04-01-2024 Lymphocytes/100 WBC (Bld) 20.0 % 19-41 [facility] MCV (mean corpuscular volume ) determinationOrdered By: Renard Burgos on 04-01-2024 MCV (RBC) [Entitic vol] 91.0 fL 80-94 [facility] Mean corpuscular hemoglobin (MCH) determinationOrdered By: Renard Burgos on 04-01-2024 MCH (RBC) [Entitic mass] 29.7 pg 27.0-32.0 [facility] Mean corpuscular hemoglobin concentration (MCHC) determinationOrdered By: Renard Burgos on 04-01-2024 MCHC (RBC) [Mass/Vol] 32.6 g/dL 32-36 [facility] Mean platelet volume determi nationOrdered By: Renard Burgos on 04-01-2024 Platelet mean volume (Bld) [Entitic vol] 11.3 fL 6.2-12.0 [facility] Monocyte percentageOrdered B y: Renard Burgos on 04-01-2024 Monocytes/100 WBC (Bld) 7.1 % 0-10 [facility] Neutrophil percentageOrdered By: Renard Burgos on 04-01-2024 Neutrophils/100 WBC (Bld) 71.8 % High 47-70 [facility] Nucleated red blood cell per centageOrdered By: Renard Burgos on 04-01-2024 Nucleated RBC/100 WBC (Bld) [Ratio] 0 % 0-5 [facility] Platelet countOrdered By: Garrick Bhatt on 04-01-2024 Platelets (Bld) [#/Vol] 195 10*3/uL 150-450 [facility] RBC Auto (Bld) [#/Vol]Ordere d By: Renard Burgos on 04-01-2024 RBC (Bld) [#/Vol] 4.58 10*6/uL Low 4.6-6.2 [facility] White blood cell (WBC) count Ordered By: Renard Burgos on 04-01-2024 WBC (Bld) [#/Vol] 9.8 10*3/uL 4.4-11.0 [facility] Absolute neutrophil countOrd ered By: Renard Burgos on 03-25-2024 Neutrophils (Bld) [#/Vol] 5.4 10*3/uL 2.0-7.7 [facility] Basophil percentageOrdered B y: Renard Burgos on 03-25-2024 Basophils/100 WBC (Bld) 0.5 % 0-1 [facility] CBC W/Diff, Automatedon 03-02 Absolute Lymph 2.14 X10 3/uL Normal 0.83-4.51 [facility] Comment on above: Order Comment: 109-1 Performed By: #### L 100.0100 ####[facility] [address] [place], [address] Absolute Neut 5.4 X10 3/uL Normal 2.0-7.7 [facility] Comment on above: Order Comment: 109-1 Performed By: #### L 100.0100 ####[facility] [address] [place], [address] Basophils/100 WBC (Bld) 0.5 % Normal 0-1 [facility] Comment on above: Order Comment: 109-1 Performed By: #### L 100.0100 ####[facility] [address] [place], [address] Eosinophils/100 WBC (Bld) 0.7 % Normal 0-5 [facility] Comment on above: Order Comment: 109-1 Performed By: #### L 100.0100 ####[facility] [address] [place], [address] Erythrocyte distribution width (RBC) [Ratio] 12.7 % Normal 11.6-14.6 [facility] Comment on above: Order Comment: 109-1 Performed By: #### L 100.0100 ####[facility] [address] [place], [address] Hematocrit (Bld) [Volume fraction] 42.3 % Normal 40-54 [facility] Comment on above: Order Comment: 109-1 Performed By: #### L 100.0100 ####[facility] [address] [place], [address] Hemoglobin (Bld) [Mass/Vol] 13.7 g/dL Normal 13.0-16.5 [facility] Comment on above: Order Comment: 109-1 Performed By: #### L 100.0100 ####[facility] [address] [place], [address] IG% 0.500 Normal 0.0-0.9 [facility] Comment on above: Order Comment: 109-1 Result Comment: IG% - Immature Granulocytes (promyelocytes, myelocytes andmetamyelocytes) > 1% indicates that a LEFT SHIFT is Present. Performed By: #### L 100.0100 ####[facility] [address] [place], [address] Lymphocytes/100 WBC (Bld) 25.8 % Normal 19-41 [facility] Comment on above: Order Comment: 109-1 Performed By: #### L 100.0100 ####[facility] [address] [place], [address] MCH (RBC) [Entitic mass] 29.2 pg Normal 27.0-32.0 [facility] Comment on above: Order Comment: 109-1 Performed By: #### L 100.0100 ####[facility] [address] [place], [address] MCHC (RBC) [Mass/Vol] 32.4 g/dL Normal 32-36 [facility] Comment on above: Order Comment: 109-1 Performed By: #### L 100.0100 ####[facility] [address] [place], [address] MCV (RBC) [Entitic vol] 90.2 fL Normal 80-94 [facility] Comment on above: Order Comment: 109-1 Performed By: #### L 100.0100 ####[facility] [address] [place], [address] Monocytes/100 WBC (Bld) 8.0 % Normal 0-10 [facility] Comment on above: Order Comment: 109-1 Performed By: #### L 100.0100 ####[facility] [address] [place], [address] Neutrophils/100 WBC (Bld) 64.5 % Normal 47-70 [facility] Comment on above: Order Comment: 109-1 Performed By: #### L 100.0100 ####[facility] [address] [place], [address] Nucleated RBC (Bld) [#/Vol] 0 10*3/uL Normal 0-5 [facility] Comment on above: Order Comment: 109-1 Performed By: #### L 100.0100 ####[facility] [address] [place], [address] Platelet mean volume (Bld) [Entitic vol] 11.2 fL Normal 6.2-12.0 [facility] Comment on above: Order Comment: 109-1 Performed By: #### L 100.0100 ####[facility] [address] [place], [address] Platelets (Bld) [#/Vol] 204 10*3/uL Normal 150-450 [facility] Comment on above: Order Comment: 109-1 Performed By: #### L 100.0100 ####[facility] [address] [place], [address] RBC (Bld) [#/Vol] 4.69 10*6/uL Normal 4.6-6.2 [facility] Comment on above: Order Comment: 109-1 Performed By: #### L 100.0100 ####[facility] [address] [place], [address] RDW SD 41.8 fl Normal 35.1-43.9 [facility] Comment on above: Order Comment: 109-1 Performed By: #### L 100.0100 ####[facility] [address] [place], [address] WBC (Bld) [#/Vol] 8.3 10*3/uL Normal 4.4-11.0 [facility] Comment on above: Order Comment: 109-1 Performed By: #### L 100.0100 ####[facility] [address] [place], [address] Eosinophil percentageOrdered By: Renard Burgos on 03-25-2024 Eosinophils/100 WBC (Bld) 0.7 % 0-5 [facility] Erythrocyte distribution wid th ratioOrdered By: Renard Burgos on 03-25-2024 Erythrocyte distribution width (RBC) [Ratio] 12.7 % 11.6-14.6 [facility] Erythrocyte distribution wid th standard deviationOrdered By: Renard Burgos on 03-25-2024 Erythrocyte distribution width (RBC) [Entitic vol] 41.8 fL 35.1-43.9 [facility] Hematocrit Auto (Bld) [Volum e fraction]Ordered By: Renard Burgos on 03-25-2024 Hematocrit (Bld) [Volume fraction] 42.3 % 40-54 [facility] Hemoglobin measurementOrdere d By: Renard Burgos on 03-25-2024 Hemoglobin (Bld) [Mass/Vol] 13.7 g/dL 13.0-16.5 [facility] Immature granulocytes/100 WB C Auto (Bld)Ordered By: Renard Burgos on 03-25-2024 Immature granulocytes/100 WBC (Bld) 0.500 % 0.0-0.9 [facility] Comment on above: IG% - Immature Granu locytes (promyelocytes, myelocytes and metamyelocytes) > 1% indicates that a LEFT SHIFT is Present. Lymphocytes Auto (Unsp spec) [#/Vol]Ordered By: Renard Burgos on 03-25-2024 Lymphocytes (Bld) [#/Vol] 2.14 10*3/uL 0.83-4.51 [facility] Lymphocytes/100 WBC Auto (Un sp spec)Ordered By: Renard Burgos on 03-25-2024 Lymphocytes/100 WBC (Bld) 25.8 % 19-41 [facility] MCV (mean corpuscular volume ) determinationOrdered By: Renard Burgos on 03-25-2024 MCV (RBC) [Entitic vol] 90.2 fL 80-94 [facility] Mean corpuscular hemoglobin (MCH) determinationOrdered By: Renard Burgos on 03-25-2024 MCH (RBC) [Entitic mass] 29.2 pg 27.0-32.0 [facility] Mean corpuscular hemoglobin concentration (MCHC) determinationOrdered By: Renard Burgos on 03-25-2024 MCHC (RBC) [Mass/Vol] 32.4 g/dL 32-36 [facility] Mean platelet volume determi nationOrdered By: Renard Burgos on 03-25-2024 Platelet mean volume (Bld) [Entitic vol] 11.2 fL 6.2-12.0 [facility] Monocyte percentageOrdered B y: Renard Burgos on 03-25-2024 Monocytes/100 WBC (Bld) 8.0 % 0-10 [facility] Neutrophil percentageOrdered By: Renard Burgos on 03-25-2024 Neutrophils/100 WBC (Bld) 64.5 % 47-70 [facility] Nucleated red blood cell per centageOrdered By: Renard Burgos on 03-25-2024 Nucleated RBC/100 WBC (Bld) [Ratio] 0 % 0-5 [facility] Platelet countOrdered By: Garrick Bhatt on 03-25-2024 Platelets (Bld) [#/Vol] 204 10*3/uL 150-450 [facility] RBC Auto (Bld) [#/Vol]Ordere d By: Renard Burgos on 03-25-2024 RBC (Bld) [#/Vol] 4.69 10*6/uL 4.6-6.2 [facility] White blood cell (WBC) count Ordered By: Renard Burgos on 03-25-2024 WBC (Bld) [#/Vol] 8.3 10*3/uL 4.4-11.0 [facility] Absolute neutrophil countOrd ered By: Renard Burgos on 03-18-2024 Neutrophils (Bld) [#/Vol] 5.2 10*3/uL 2.0-7.7 [facility] Basophil percentageOrdered B y: Renard Burgos on 03-18-2024 Basophils/100 WBC (Bld) 0.6 % 0-1 [facility] CBC W/Diff, Automatedon 03-01 Absolute Lymph 2.23 X10 3/uL Normal 0.83-4.51 [facility] Comment on above: Order Comment: 109.1 Performed By: #### L 100.0100 ####[facility] [address] [place], [address] Absolute Neut 5.2 X10 3/uL Normal 2.0-7.7 [facility] Comment on above: Order Comment: 109.1 Performed By: #### L 100.0100 ####[facility] [address] [place], [address] Basophils/100 WBC (Bld) 0.6 % Normal 0-1 [facility] Comment on above: Order Comment: 109.1 Performed By: #### L 100.0100 ####[facility] [address] [place], [address] Eosinophils/100 WBC (Bld) 0.7 % Normal 0-5 [facility] Comment on above: Order Comment: 109.1 Performed By: #### L 100.0100 ####[facility] [address] [place], [address] Erythrocyte distribution width (RBC) [Ratio] 12.8 % Normal 11.6-14.6 [facility] Comment on above: Order Comment: 109.1 Performed By: #### L 100.0100 ####[facility] [address] [place], [address] Hematocrit (Bld) [Volume fraction] 42.0 % Normal 40-54 [facility] Comment on above: Order Comment: 109.1 Performed By: #### L 100.0100 ####[facility] [address] [place], [address] Hemoglobin (Bld) [Mass/Vol] 13.6 g/dL Normal 13.0-16.5 [facility] Comment on above: Order Comment: 109.1 Performed By: #### L 100.0100 ####[facility] [address] [place], [address] IG% 0.500 Normal 0.0-0.9 [facility] Comment on above: Order Comment: 109.1 Result Comment: IG% - Immature Granulocytes (promyelocytes, myelocytes andmetamyelocytes) > 1% indicates that a LEFT SHIFT is Present. Performed By: #### L 100.0100 ####[facility] [address] [place], [address] Lymphocytes/100 WBC (Bld) 27.0 % Normal 19-41 [facility] Comment on above: Order Comment: 109.1 Performed By: #### L 100.0100 ####[facility] [address] [place], [address] MCH (RBC) [Entitic mass] 29.5 pg Normal 27.0-32.0 [facility] Comment on above: Order Comment: 109.1 Performed By: #### L 100.0100 ####[facility] [address], [address] MCHC (RBC) [Mass/Vol] 32.4 g/dL Normal 32-36 [facility] Comment on above: Order Comment: 109.1 Performed By: #### L 100.0100 ####[facility] [address] [place], [address] MCV (RBC) [Entitic vol] 91.1 fL Normal 80-94 [facility] Comment on above: Order Comment: 109.1 Performed By: #### L 100.0100 ####[facility] [address] [place], [address] Monocytes/100 WBC (Bld) 8.5 % Normal 0-10 [facility] Comment on above: Order Comment: 109.1 Performed By: #### L 100.0100 ####[facility] [address] [place], [address] Neutrophils/100 WBC (Bld) 62.7 % Normal 47-70 [facility] Comment on above: Order Comment: 109.1 Performed By: #### L 100.0100 ####[facility] [address] [place], [address] Nucleated RBC (Bld) [#/Vol] 0 10*3/uL Normal 0-5 [facility] Comment on above: Order Comment: 109.1 Performed By: #### L 100.0100 ####[facility] [address] [place], [address] Platelet mean volume (Bld) [Entitic vol] 10.8 fL Normal 6.2-12.0 [facility] Comment on above: Order Comment: 109.1 Performed By: #### L 100.0100 ####[facility] [address] [place], [address] Platelets (Bld) [#/Vol] 211 10*3/uL Normal 150-450 [facility] Comment on above: Order Comment: 109.1 Performed By: #### L 100.0100 ####[facility] [address] [place], [address] RBC (Bld) [#/Vol] 4.61 10*6/uL Normal 4.6-6.2 [facility] Comment on above: Order Comment: 109.1 Performed By: #### L 100.0100 ####[facility] [address] [place], [address] RDW SD 42.3 fl Normal 35.1-43.9 [facility] Comment on above: Order Comment: 109.1 Performed By: #### L 100.0100 ####[facility] [address] [place], [address] WBC (Bld) [#/Vol] 8.3 10*3/uL Normal 4.4-11.0 [facility] Comment on above: Order Comment: 109.1 Performed By: #### L 100.0100 ####[facility] [address] [place], [address] Eosinophil percentageOrdered By: Renard Burgos on 03-18-2024 Eosinophils/100 WBC (Bld) 0.7 % 0-5 [facility] Erythrocyte distribution wid th ratioOrdered By: Renard Burgos on 03-18-2024 Erythrocyte distribution width (RBC) [Ratio] 12.8 % 11.6-14.6 [facility] Erythrocyte distribution wid th standard deviationOrdered By: Renard Burgos on 03-18-2024 Erythrocyte distribution width (RBC) [Entitic vol] 42.3 fL 35.1-43.9 [facility] Hematocrit Auto (Bld) [Volum e fraction]Ordered By: Renard Burgos on 03-18-2024 Hematocrit (Bld) [Volume fraction] 42.0 % 40-54 [facility] Hemoglobin measurementOrdere d By: Renard Burgos on 03-18-2024 Hemoglobin (Bld) [Mass/Vol] 13.6 g/dL 13.0-16.5 [facility] Immature granulocytes/100 WB C Auto (Bld)Ordered By: Renard Burgos on 03-18-2024 Immature granulocytes/100 WBC (Bld) 0.500 % 0.0-0.9 [facility] Comment on above: IG% - Immature Granu locytes (promyelocytes, myelocytes and metamyelocytes) > 1% indicates that a LEFT SHIFT is Present. Lymphocytes Auto (Unsp spec) [#/Vol]Ordered By: Renard Burgos on 03-18-2024 Lymphocytes (Bld) [#/Vol] 2.23 10*3/uL 0.83-4.51 [facility] Lymphocytes/100 WBC Auto (Un sp spec)Ordered By: Renard Burgos on 03-18-2024 Lymphocytes/100 WBC (Bld) 27.0 % 19-41 [facility] MCV (mean corpuscular volume ) determinationOrdered By: Renard Burgos on 03-18-2024 MCV (RBC) [Entitic vol] 91.1 fL 80-94 [facility] Mean corpuscular hemoglobin (MCH) determinationOrdered By: Renard Burgos on 03-18-2024 MCH (RBC) [Entitic mass] 29.5 pg 27.0-32.0 [facility] Mean corpuscular hemoglobin concentration (MCHC) determinationOrdered By: Renard Burgos on 03-18-2024 MCHC (RBC) [Mass/Vol] 32.4 g/dL 32-36 [facility] Mean platelet volume determi nationOrdered By: Renard Burgos on 03-18-2024 Platelet mean volume (Bld) [Entitic vol] 10.8 fL 6.2-12.0 [facility] Monocyte percentageOrdered B y: Renard Burgos on 03-18-2024 Monocytes/100 WBC (Bld) 8.5 % 0-10 [facility] Neutrophil percentageOrdered By: Renard Burgos on 03-18-2024 Neutrophils/100 WBC (Bld) 62.7 % 47-70 [facility] Nucleated red blood cell per centageOrdered By: Renard Burgos on 03-18-2024 Nucleated RBC/100 WBC (Bld) [Ratio] 0 % 0-5 [facility] Platelet countOrdered By: Garrick Bhatt on 03-18-2024 Platelets (Bld) [#/Vol] 211 10*3/uL 150-450 [facility] RBC Auto (Bld) [#/Vol]Ordere d By: Renard Burgos on 03-18-2024 RBC (Bld) [#/Vol] 4.61 10*6/uL 4.6-6.2 [facility] White blood cell (WBC) count Ordered By: Renard Burgos on 03-18-2024 WBC (Bld) [#/Vol] 8.3 10*3/uL 4.4-11.0 [facility] Absolute neutrophil countOrd ered By: Renard Burgos on 03-11-2024 Neutrophils (Bld) [#/Vol] 6.2 10*3/uL 2.0-7.7 [facility] Basophil percentageOrdered B y: Renard Burgos on 03-11-2024 Basophils/100 WBC (Bld) 0.5 % 0-1 [facility] Eosinophil percentageOrdered By: Renard Burgos on 03-11-2024 Eosinophils/100 WBC (Bld) 0.6 % 0-5 [facility] Erythrocyte distribution wid th ratioOrdered By: Renard Burgos on 03-11-2024 Erythrocyte distribution width (RBC) [Ratio] 12.7 % 11.6-14.6 [facility] Erythrocyte distribution wid th standard deviationOrdered By: Renard Burgos on 03-11-2024 Erythrocyte distribution width (RBC) [Entitic vol] 41.5 fL 35.1-43.9 [facility] Hematocrit Auto (Bld) [Volum e fraction]Ordered By: Renard Burgos on 03-11-2024 Hematocrit (Bld) [Volume fraction] 41.5 % 40-54 [facility] Hemoglobin measurementOrdere d By: Renard Burgos on 03-11-2024 Hemoglobin (Bld) [Mass/Vol] 13.8 g/dL 13.0-16.5 [facility] Immature granulocytes/100 WB C Auto (Bld)Ordered By: Renard Burgos on 03-11-2024 Immature granulocytes/100 WBC (Bld) 0.500 % 0.0-0.9 [facility] Comment on above: IG% - Immature Granu locytes (promyelocytes, myelocytes and metamyelocytes) > 1% indicates that a LEFT SHIFT is Present. Lymphocytes Auto (Unsp spec) [#/Vol]Ordered By: Renard Burgos on 03-11-2024 Lymphocytes (Bld) [#/Vol] 2.50 10*3/uL 0.83-4.51 [facility] Lymphocytes/100 WBC Auto (Un sp spec)Ordered By: Renard Burgos on 03-11-2024 Lymphocytes/100 WBC (Bld) 25.6 % 19-41 [facility] MCV (mean corpuscular volume ) determinationOrdered By: Renard Burgos on 03-11-2024 MCV (RBC) [Entitic vol] 91.4 fL 80-94 [facility] Mean corpuscular hemoglobin (MCH) determinationOrdered By: Renard Burgos on 03-11-2024 MCH (RBC) [Entitic mass] 30.4 pg 27.0-32.0 [facility] Mean corpuscular hemoglobin concentration (MCHC) determinationOrdered By: Renard Burgos on 03-11-2024 MCHC (RBC) [Mass/Vol] 33.3 g/dL 32-36 [facility] Mean platelet volume determi nationOrdered By: Renard Burgos on 03-11-2024 Platelet mean volume (Bld) [Entitic vol] 11.0 fL 6.2-12.0 [facility] Monocyte percentageOrdered B y: Renard Burgos on 03-11-2024 Monocytes/100 WBC (Bld) 9.0 % 0-10 [facility] Neutrophil percentageOrdered By: Renard Burgos on 03-11-2024 Neutrophils/100 WBC (Bld) 63.8 % 47-70 [facility] Nucleated red blood cell per centageOrdered By: Renard Burgos on 03-11-2024 Nucleated RBC/100 WBC (Bld) [Ratio] 0 % 0-5 [facility] Platelet countOrdered By: Garrick Bhatt on 03-11-2024 Platelets (Bld) [#/Vol] 220 10*3/uL 150-450 [facility] RBC Auto (Bld) [#/Vol]Ordere d By: Renard Burgos on 03-11-2024 RBC (Bld) [#/Vol] 4.54 10*6/uL Low 4.6-6.2 [facility] White blood cell (WBC) count Ordered By: Renard Burgos on 03-11-2024 WBC (Bld) [#/Vol] 9.8 10*3/uL 4.4-11.0 [facility] Progress Noteon 11-22-2023 Progress Note Speech-Language Pathology SPEECH LANGUAGE PATHOLOGY [facility] Modified Barium Swallow Study [...] despite effort. Pt may benefit from skilled INTERPRETER TRANSLATOR services to address: Anterior hyoid movement (difficult d/t cervical fusion C2-C6; pressure generation, cough strengthening (EMST). Frequency: Per treating INTERPRETER TRANSLATOR Barriers: large osteophytes, bridging with anterior projection [...] Prior MBSS?: No, unable to locate in [facility] Current Diet: Puree diet with ?liquid (no information from [place]) Textures tested: - thin liquid, (cup edge) - mildly thick liquid, (cup edge) - puree, (teaspoon) Patient position: lateral Past Medical History: Past Medical History: Diagnosis Date TREVER (acute kidney injury) (CMS/HCC) ([facility]) Alcohol abuse 07/08/2018 Anxiety C1 spinal cord injury ([facility]/HCC) ([facility]) Depression Fall 06/2018 Schizophrenia ([facility]) Past Surgical History: Past Surgical History: Procedure Laterality Date CERVICAL FUSION 07/09/2014 C2-6 cervical fusion GASTROSTOMY TUBE PLACEMENT 07/13/2018 TRACHEOSTOMY 07/13/2018 Admission Diagnosis: Patient Active Problem List Diagnosis Date Noted Respiratory syncytial virus (RSV) 03/22/2021 Hypoxia 03/19/2021 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[facility]/HCC) ([facility]) 08/16/2018 Chronic latent schizophrenia ([facility]) 08/15/2018 Prolonged Q-T interval on ECG 08/15/2018 Abdominal wall abscess 08/15/2018 Central cord syndrome ([facility]/HCC) ([facility]) 08/15/2018 Respiratory failure after trauma ([facility]) 08/15/2018 Pressure ulcer of sacral region, stage 2 ([facility]) 08/09/2018 Urinary retention 07/28/2018 Acute respiratory failure with hypoxia ([facility]) 07/26/2018 Mild bibasilar atelectasis 07/26/2018 Hospital-acquired pneumonia 07/26/2018 Bilateral pleural effusion 07/26/2018 Ileus (CMS/HCC) ([facility]) 07/23/2018 TREVER (acute kidney injury) ([facility]) 07/23/2018 Hypokalemia 07/21/2018 Vertebral artery occlusion, bilateral 07/11/2018 Vitamin D insufficiency 07/10/2018 Alcohol abuse 07/08/2018 Closed wedge compression fracture of first thoracic vertebra ([facility]) 07/08/2018 Traumatic nondisp spondylolisthesis of C3 vertebra with closed fx, initial encounter ([facility]) 07/08/2018 Closed fracture dislocation of cervical spine ([facility]) 07/08/2018 Pain: Pt denies any current pain. Reason for current admission: Pt with h/o of PEG and trach from 2019. Pt is currently decannulated. H/o [place] cervical fusion C2-C6. Noted very large connective [...] posterior spill (more content not included)... Normal [facility] RF videography Hypopharynx a nd Esophagus Views for swallowing function W speech and W barium contrast Rosalino 11-22-2023 Abnormal findings as described above. Please refer to the speech pathologist 's report for additional details and recommendations. Report Dictated on Electronically Signed By: Nir Cancino MD Electronically Signed Date/Time: 11/22/2023 1:57 PM [facility] 1955 [id number] Exam Date/Time: 11/22/2023 12:53 Procedure: FL MODIFIED [...] not visualized in this exam for evaluation. [facility] Nir Cancino MD - 11/22/2023 Patient Name: [facility] 1955 [id number] Exam Date/Time: 11/22/2023 12:53 Procedure: FL MODIFIED [...] Electronically Signed Date/Time: 11/22/2023 1:57 PM EDT [facility] Radiology Study observation (narrative) [facility] RF videography Hypopharynx a nd Esophagus Views for swallowing function W speech and W barium contrast POOrdered By: Nir Cancino on 11-22-2023 [facility] Work Phone: CBC W Auto Differential pane l (Bld)on 10-02-2023 Basophils (Bld) [#/Vol] 0.0 10*3/uL 0.0 - 0.2 10*3/uL [facility] Basophils/100 WBC (Bld) 0.3 % 0.0 - 2.0 % [facility] Eosinophils (Bld) [#/Vol] 0.0 10*3/uL 0.0 - 0.5 10*3/uL [facility] Eosinophils/100 WBC (Bld) 0.0 % 0.0 - 6.0 % [facility] Erythrocyte distribution width (RBC) [Ratio] 13.0 % 11.5 - 15.0 % [facility] Hematocrit (Bld) [Volume fraction] 37.8 % Low 40.0 - 52.0 % [facility] Hemoglobin (Bld) [Mass/Vol] 13.0 g/dL 13.0 - 18.0 g/dL [facility] Immature granulocytes (Bld) [#/Vol] 0.1 10*3/uL High NINF - 0.1 10*3/uL [facility] Immature granulocytes/100 WBC (Bld) 0.5 % 0.0 - 2.0 % [facility] Interpretation and review of laboratory results Abnormal [facility] Lymphocytes (Bld) [#/Vol] 0.9 10*3/uL Low 1.0 - 4.3 10*3/uL [facility] Lymphocytes/100 WBC (Bld) 8.4 % Low 15.0 - 45.0 % [facility] MCH (RBC) [Entitic mass] 30.3 pg 26.0 - 34.0 pg [facility] MCHC (RBC) [Mass/Vol] 34.4 % 30.5 - 36.0 % [facility] MCV (RBC) [Entitic vol] 88.1 fL 77.0 - 99.0 fL [facility] Monocytes (Bld) [#/Vol] 0.9 10*3/uL 0.0 - 0.9 10*3/uL [facility] Monocytes/100 WBC (Bld) 8.2 % 5.0 - 13.0 % [facility] Neutrophils (Bld) [#/Vol] 8.9 10*3/uL High 1.8 - 7.5 10*3/uL [facility] Neutrophils/100 WBC (Bld) 82.6 % High 38.0 - 82.0 % [facility] Nucleated RBC/100 WBC (Bld) [Ratio] 0.0 % [facility] Platelet mean volume (Bld) [Entitic vol] 10.7 fL 9.0 - 12.7 fL [facility] Platelets (Bld) [#/Vol] 148 10*3/uL 140 - 440 10*3/uL [facility] RBC (Bld) [#/Vol] 4.29 10*6/uL Low 4.40 - 5.9 0 10*6/uL [facility] WBC (Bld) [#/Vol] 10.7 10*3/uL 3.6 - 10.7 10*3/uL [facility] CBC WITH AUTO DIFFERENTIALon 10-02-2023 Basophils (Bld) [#/Vol] 0.0 10*3/uL Normal 0.0-0.2 [facility] Comment on above: Performed By: #### L [id number] #### Traveling Freight Agent: CYNDI LILLY ([phone]) [facility] ([facility]) [address] Basophils/100 WBC (Bld) 0.3 % Normal 0.0-2.0 [facility] Comment on above: Performed By: #### L [id number] #### Traveling Freight Agent: CYNDI LILLY ([phone]) [facility] ([facility]) [address] [place] [address] Eosinophils (Bld) [#/Vol] 0.0 10*3/uL Normal 0.0-0.5 [facility] Comment on above: Performed By: #### L [id number] #### Traveling Freight Agent: CYNDI LILLY ([phone]) [facility] ([facility]) [address] Eosinophils/100 WBC (Bld) 0.0 % Normal 0.0-6.0 [facility] Comment on above: Performed By: #### L [id number] #### Traveling Freight Agent: CYNDI LILLY ([phone]) [facility] ([facility]) [address] Erythrocyte distribution width (RBC) [Ratio] 13.0 % Normal 11.5-15.0 [facility] Comment on above: Performed By: #### L [id number] #### Traveling Freight Agent: CYNDI LILLY ([phone]) [facility] [address] Hematocrit (Bld) [Volume fraction] 37.8 % Low 40.0-52.0 [facility] Comment on above: Performed By: #### L [id number] #### Traveling Freight Agent: CYNDI LILLY ([phone]) [facility] ([facility]) [address] Hemoglobin (Bld) [Mass/Vol] 13.0 g/dL Normal 13.0-18.0 [facility] Comment on above: Performed By: #### L [id number] #### Traveling Freight Agent: CYNDI LILLY ([phone]) [facility] ([facility]) [address] IMMATURE GRANS % 0.5 % Normal 0.0-2.0 [facility] Comment on above: Performed By: #### L [id number] #### Traveling Freight Agent: CYNDI LILLY ([phone]) [facility] ([facility]) [address] IMMATURE GRANS ABSOLUTE 0.1 10*3/uL High <0.1 [facility] Comment on above: Performed By: #### L [id number] #### Traveling Freight Agent: CYNDI LILLY ([phone]) [facility] ([facility]) [address] Lymphocytes (Bld) [#/Vol] 0.9 10*3/uL Low 1.0-4.3 [facility] Comment on above: Performed By: #### L [id number] #### Traveling Freight Agent: CYNDI LILLY ([phone]) [facility] ([facility]) [address] [place] [address] [place] Lymphocytes/100 WBC (Bld) 8.4 % Low 15.0-45.0 [facility] Comment on above: Performed By: #### L [id number] #### Traveling Freight Agent: CYNDI DRIVERRADHA ([phone]) [facility] ([facility] [address] MCH (RBC) [Entitic mass] 30.3 pg Normal 26.0-34.0 [facility] Comment on above: Performed By: #### L [id number] #### Traveling Freight Agent: CYNDI DRIVERRADHA ([phone]) [facility] ([facility]) [address] MCHC 34.4 % Normal 30.5-36.0 [facility] Comment on above: Performed By: #### L [id number] #### Traveling Freight Agent: CYNDI DRIVERRADHA ([phone]) [facility] ([facility]) [address] MCV (RBC) [Entitic vol] 88.1 fL Normal 77.0-99.0 [facility] Comment on above: Performed By: #### L [id number] #### Traveling Freight Agent: CYNDI LILLY ([phone]) [facility] ([facility]) [address] Monocytes (Bld) [#/Vol] 0.9 10*3/uL Normal 0.0-0.9 [facility] Comment on above: Performed By: #### L [id number] #### Traveling Freight Agent: CYNDI LILLY ([phone]) [facility] ([facility] [address] [place] [address] [place] Monocytes/100 WBC (Bld) 8.2 % Normal 5.0-13.0 [facility] Comment on above: Performed By: #### L [id number] #### Traveling Freight Agent: CYNDI LILLY ([phone]) [facility] ([facility] [address] NEUTROPHILS ABSOLUTE 8.9 10*3/uL High 1.8-7.5 [facility] Comment on above: Performed By: #### L [id number] #### Traveling Freight Agent: CYNDI LILLY ([phone]) [facility] [place] ([facility]) [address] Neutrophils/100 WBC (Bld) 82.6 % High 38.0-82.0 [facility] Comment on above: Performed By: #### L [id number] #### Traveling Freight Agent: CYNDI LILLY ([phone]) [facility] [place] ([facility]) [address] NRBC 0.0 /100 WBCs Normal 0.0-2.0 [facility] Comment on above: Performed By: #### L [id number] #### Traveling Freight Agent: CYNDI LILLY ([phone]) [facility] ([facility]) [address] Platelet mean volume (Bld) [Entitic vol] 10.7 fL Normal 9.0-12.7 [facility] Comment on above: Performed By: #### L [id number] #### Traveling Freight Agent: CYNDI LILLY ([phone]) [facility] [place] ([facility]) [address] [place] [address] [place] Platelets (Bld) [#/Vol] 148 10*3/uL Normal 140-440 [facility] Comment on above: Performed By: #### L [id number] #### Traveling Freight Agent: CYNDI LILLY ([phone]) [facility] [place] ([facility]) [address] [place] [address] [place] RBC (Bld) [#/Vol] 4.29 10*6/uL Low 4.40-5.90 [facility] Comment on above: Performed By: #### L [id number] #### Traveling Freight Agent: CYNDI LILLY ([phone]) [facility] [place] ([facility]) [address] [place] [address] [place] WBC (Bld) [#/Vol] 10.7 10*3/uL Normal 3.6-10.7 [facility] Comment on above: Performed By: #### L [id number] #### Traveling Freight Agent: CYNDI LILLY ([phone]) [facility] ([facility]) [address] COMPREHENSIVE METABOLIC PANE Reji 10-02-2023 Albumin [Mass/Vol] 3.7 g/dL Normal 3.5-5.0 [facility] Comment on above: Performed By: #### L [id number], [id number] ####Traveling Freight Agent: CYDNI LILLY ([phone])[facility] [place] ([facility])[address] ALP [Catalytic activity/Vol] 78 U/L Normal 38-126 [facility] Comment on above: Performed By: #### L AB17, [id number] ####Traveling Freight Agent: CYNDI LILLY ([phone])[facility] [place] ([facility])[address] ALT [Catalytic activity/Vol] 21 U/L Normal 0-49 [facility] Comment on above: Performed By: #### L AB17, [id number] ####Traveling Freight Agent: CYNDI LILLY ([phone])[facility] [place] ([facility])[address] Anion gap [Moles/Vol] 10 mmol/L Normal 3-13 [facility] Comment on above: Performed By: #### L [id number], [id number] ####Traveling Freight Agent: CYNDI LILLY ([phone])[facility] [place] ([facility])[address] AST [Catalytic activity/Vol] 29 U/L Normal 15-46 [facility] Comment on above: Performed By: #### L AB17, [id number] ####Traveling Freight Agent: CYNDI LILLY ([phone])[facility] [place] ([facility])[address] Bilirubin [Mass/Vol] 1.1 mg/dL Normal 0.2-1.3 [facility] Comment on above: Performed By: #### Alban AB17, [id number] ####Traveling Freight Agent: CYNDI LILLY ([phone])[facility] ([facility])[address] Calcium [Mass/Vol] 7.8 mg/dL Low 8.4-10.4 [facility] Comment on above: Performed By: #### L AB17, [id number] ####Traveling Freight Agent: CYNDI LILLY ([phone])[facility] ([facility])[address] Chloride [Moles/Vol] 102 mmol/L Normal 98-107 [facility] Comment on above: Performed By: #### Alban AB17, [id number] ####Traveling Freight Agent: CYNDI LILLY ([phone])[facility] ([facility])[address] CO2 [Moles/Vol] 23 mmol/L Normal 22-30 [facility] Comment on above: Performed By: #### Alban AB17, [id number] ####Traveling Freight Agent: CYNDI LILLY ([phone])[facility] ([facility] Creatinine [Mass/Vol] 0.58 mg/dL Low 0.66-1.25 [facility] Comment on above: Performed By: #### L AB17, [id number] ####Traveling Freight Agent: CYNDI LILLY ([phone])[facility] ([facility])[address] GLOMERULAR FILTRATION RATE ML/MIN/1.73 SQ M.PREDICTED >90.0 Normal >60.0 [facility] Comment on above: Result Comment: Calc ulation based on the Chronic Kidney Disease Epidemiology Collaboration (CKD-EPI) equation refit without adjustment for race Performed By: #### L AB17, [id number] ####Traveling Freight Agent: CYNDI LILLY ([phone])[facility] ([facility])[address] Glucose [Mass/Vol] 111 mg/dL High 70-100 [facility] Comment on above: Performed By: #### L AB17, [id number] ####Traveling Freight Agent: CYNDI LILLY ([phone])[facility] ([facility])[address] Potassium [Moles/Vol] 4.0 mmol/L Normal 3.5-5.1 [facility] Comment on above: Performed By: #### L AB17, [id number] ####Traveling Freight Agent: CYNDI LILLY ([phone])[facility] ([facility])[address] Protein [Mass/Vol] 6.5 g/dL Normal 6.3-8.2 [facility] Comment on above: Performed By: #### L AB17, [id number] ####Traveling Freight Agent: CYNDI LILLY ([phone])[facility] ([facility])[address] Sodium [Moles/Vol] 135 mmol/L Normal 135-145 [facility] Comment on above: Performed By: #### L AB17, [id number] ####Traveling Freight Agent: CYNDI LILLY ([phone])[facility] ([facility])[address] Urea nitrogen [Mass/Vol] 18 mg/dL Normal 9-20 [facility] Comment on above: Performed By: #### L AB17, [id number] ####Traveling Freight Agent: CYNDI LILLY ([phone])[facility] ([facility])[address] HEAD WO IV CONTRASTon CT HEAD WO IV CONTRAST Patient Name: KATHYA YU : 1955 Exam Date/Time: 10/02/2023 11:03 Procedure: CT HEAD WO IV CONTRAST Ordering Provider: TOLEDO AMY Reason For Exam: Neuro deficit, acute, stroke suspected EXAMINATION: CT HEAD WO IV CONTRAST HISTORY: Neuro deficit, acute, stroke suspected - - - - - [id number] - - - - TECHNIQUE: CT head [...] seen him for that day, 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 EMS states [...] has no complaints at this time. Normal [facility] CT Head WO contraston [address] evidence of an acute intracranial abnormality. Report Dictated on Electronically Signed By: Maria Eugenia Ruiz MD Electronically Signed Date/Time: 10/02/2023 11:09 AM EDT [facility] Patient Name: KATHYA HOOPER : 1955 Exam Date/Time: 10/02/2023 11:03 Procedure: CT HEAD WO IV CONTRAST Ordering Provider: TOLEDO AMY Reason For Exam: Neuro deficit, acute, stroke suspected EXAMINATION: CT HEAD WO IV CONTRAST HISTORY: Neuro deficit, acute, stroke suspected - - - - - [id number] - - - - TECHNIQUE: CT head [...] stroke suspected - - - - - [id number] - - - - TECHNIQUE: CT head [...] Electronically Signed Date/Time: 10/02/2023 11:09 AM EDT [facility] Radiology Study observation (narrative) [facility] Head WO contrastOrdered B y: Maria Eugenia Joseph on 10-02-2023 [facility] [employer] Work Phone: Comprehensive metabolic 1998 panelon 10-02-2023 Albumin [Mass/Vol] 3.7 g/dL 3.5 - 5.0 g/dL [facility] ALP [Catalytic activity/Vol] 78 U/L 38 - 126 U/L [facility] ALT [Catalytic activity/Vol] 21 U/L 0 - 49 U/L [facility] Anion gap [Moles/Vol] 10 mmol/L 3 - 13 mmol/L [facility] AST [Catalytic activity/Vol] 29 U/L 15 - 46 U/L [facility] Bilirubin [Mass/Vol] 1.1 mg/dL 0.2 - 1 .3 mg/dL [facility] Calcium [Mass/Vol] 7.8 mg/dL Low 8.4 - 10. 4 mg/dL [facility] Chloride [Moles/Vol] 102 mmol/L 98 - 10 7 mmol/L [facility] CO2 [Moles/Vol] 23 mmol/L 22 - 30 mmol/L [facility] Creatinine [Mass/Vol] 0.58 mg/dL Low 0.66 - 1.25 mg/dL [facility] GFR/1.73 sq M.predicted MDRD (S/P/Bld) [Vol rate/Area] - PINF [facility] Comment on above: Calculation based on the Chronic Kidney Disease Epidemiology Collaboration (CKD-EPI) equation refit without adjustment for race Glucose [Mass/Vol] 111 mg/dL High 70 - 100 mg/dL [facility] Interpretation and review of laboratory results Abnormal [facility] Potassium [Moles/Vol] 4.0 mmol/L 3.5 - 5.1 mmol/L [facility] Protein [Mass/Vol] 6.5 g/dL 6.3 - 8.2 g/dL [facility] Sodium [Moles/Vol] 135 mmol/L 135 - 145 mmol/L [facility] Urea nitrogen [Mass/Vol] 18 mg/dL 9 - 20 mg/dL [facility] ECG 12-LEADon 10-02-2023 ECG 12-LEAD IMPRESSION: Sinus tachycardia Left bundle branch block ST elevation secondary to IVCD Electronically Signed On 10-02-2023 12:40:15 EDT by Fei Farooq [facility] ED Nursing Noteon 10-02-2023 ED Nursing Note [facility] at bedside at this time Mami Lantigua RN 10/02/23 1427 [facility] ED Nursing Note This RN gave report to Marnie at [facility] at this time Mami Lantigua RN 10/02/23 1358 [facility] ED Nursing Note This RN went to evaluate patient, was on 2L o2 and does not wear at baseline, plan is dc, this RN turned o2 off to trial patient, spo2 monitor on Mami Lantigua RN 10/02/23 1325 [facility] ED Nursing Note Pt to ct via cart Eloisa Alfaro RN 10/02/23 1043 [facility] ED Nursing Note Pt was [facility] [place] [facility] for Left sided facial droop. Per EMS nurse is new and does not know patient very well but he is A&O x 2 at baseline. Per EMS the nurse states it was 20 mins ago. 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 EMS states [...] facility. Hx of schizophrenia. BS 131. Normal [facility] ED Provider Noteon 4 ED Provider Note [facility] ED eMERGENCY dEPARTMENT eNCOUnter Pt Name: Kathya [...] to the emergency department from a local [facility] facility where he is currently a resident. [...] History: Diagnosis Date TREVER (acute kidney injury) ([facility]) ([facility]) Alcohol abuse 07/08/2018 Anxiety C1 spinal cord injury ([facility]) ([facility]) Depression Fall 06/2018 Schizophrenia ([facility]) SURGICALHISTORY Past Surgical History: Procedure [...] EmergencyPhysician): Interpret (more content not included)... Normal [facility] ED Provider Note Emergency Department Encounter [facility] ED Patient: Kathya Hooper : 1955 Date [...] are mis-transcribed.) Fei Farooq MD Acute Care [facility] Fei Farooq MD 10/02/23 1129 Normal [facility] Laboratory - Chemistry and C hemistry - challengeon 10-02-2023 Troponin I.cardiac [Mass/Vol] ng/mL NINF - 0.034 ng/mL [facility] Laboratory - Coagulationon 0 10-02-2023 aPTT Coag (PPP) [Time] 29.6 s 20.0 - 30.5 s [facility] INR Coag (PPP) [Relative time] 1.1 {INR} 0.9 - 1.1 [facility] Comment on above: Recommended Anticoag ulant [...] [Time] 11.6 s 9.0 - 12.0 s [facility] No Panel Informationon 10-01 Heart Rate 103 bpm [facility] P [place] 48 degrees [facility] CO Interval 172 ms [facility] QRS [place] -38 degrees [facility] QRSD Interval 159 ms [facility] QT Interval 405 ms [facility] QTC Interval 532 ms [facility] T Wave [place] 109 degrees [facility] Sinus tachycardia Left bundle branch block ST elevation secondary to IVCD Electronically Signed On 10-02-2023 12:40:15 EDT by Fei Farooq Fei Lopez MD - 10/02/2023 IMPRESSION: Sinus tachycardia Left bundle branch block ST elevation secondary to IVCD Electronically Signed On 10-02-2023 12:40:15 EDT by Fei Farooq [facility] Interpretation and review of laboratory results Normal [facility] PROTIME AND APTTon aPTT Coag (Bld) [Time] 29.6 s Normal 20.0-30.5 [facility] Comment on above: Performed By: #### L [id number] ####Traveling Freight Agent: CYNDI LILLY ([phone])[facility] ([facility])[address] [place] [address] INR Coag (PPP) [Relative time] 1.1 {INR} Normal 0.9-1.1 [facility] Comment on above: Result Comment: Yefri [...] prevent Myocardial Infarction Performed By: #### L [id number] ####Traveling Freight Agent: CYNDI LILLY ([phone])[facility] ([facility])[address] [place] [address] PT Coag (PPP) [Time] 11.6 s Normal 9.0-12.0 [facility] Comment on above: Performed By: #### L [id number] ####Traveling Freight Agent: CYNDI LILLY ([phone])[facility] ([facility])[address] [place] [address] TROPONIN, WITH SERIAL REFLEX on 10-02-2023 Troponin I.cardiac [Mass/Vol] ng/mL Normal <0.034 [facility] Comment on above: Result Comment: SHARON Stevens COMMENTS: Patients with high levels of Biotin oral intake (ie >5 mg/day) may have falsely decreased Troponin levels. Performed By: #### L AB17, [id number] ####Traveling Freight Agent: CYNDI LILLY ([phone])[facility] ([facility])[address] [place] [address] Troponin I.cardiac [Mass/Vol ]on 10-02-2023 Interpretation and review of laboratory results Normal [facility] Patients with high levels of Biotin oral intake (ie >5 mg/day) may have falsely decreased Troponin levels. [facility] XR Chest Single viewon 10-01 No acute cardiopulmonary disease. Report Dictated on Electronically Signed By: Maria Eugenia Ruiz MD Electronically Signed Date/Time: 10/02/2023 11:06 AM EDT [facility] Patient Name: KATHYA HOOPER : [...] spine and shoulders. No acute osseous findings. [facility] Maria Eugenia Ruiz MD - 10/02/2023 [...] Electronically Signed Date/Time: 10/02/2023 11:06 AM EDT [facility] Radiology Study observation (narrative) [facility] Absolute lymphocyte countOrd ered By: Renard Burgos on 08-07-2023 Lymphocytes Auto (Unsp spec) [#/Vol] 2.23 10*3/uL 0.83-4.51 [facility] Automated lymphocyte count a s percentage of total leukocytesOrdered By: Renard Burgos on 08-07-2023 Lymphocytes/100 WBC Auto (Unsp spec) 23.9 % 19-41 [facility] Basophil percentageOrdered B y: Renard Burgos on 08-07-2023 Basophils/100 WBC (Bld) 0.4 % 0-1 [facility] Eosinophils/100 WBC (Bld) 0.4 % 0-5 [facility] Hemoglobin (Bld) [Mass/Vol] 13.9 g/dL 13.0-16.5 [facility] Monocytes/100 WBC (Bld) 8.0 % 0-10 [facility] Neutrophils (Bld) [#/Vol] 6.2 10*3/uL 2.0-7.7 [facility] Neutrophils/100 WBC (Bld) 66.9 % 47-70 [facility] WBC (Bld) [#/Vol] 9.3 10*3/uL 4.4-11.0 [facility] Determination of erythrocyte mean corpuscular volume (MCV)Ordered By: Renard Burgos on 08-07-2023 MCV (RBC) [Entitic vol] 90.0 fL 80-94 [facility] Erythrocyte distribution wid th ratioOrdered By: Renard Burgos on 08-07-2023 Erythrocyte distribution width (RBC) [Ratio] 13.0 % 11.6-14.6 [facility] Erythrocyte distribution wid th standard deviationOrdered By: Renard Burgos on 08-07-2023 Erythrocyte distribution width (RBC) [Entitic vol] 42.5 fL 35.1-43.9 [facility] Hematocrit Auto (Bld) [Volum e fraction]Ordered By: Renard Burgos on 08-07-2023 Hematocrit (Bld) [Volume fraction] 42.5 % 40-54 [facility] Immature granulocytes/100 WB C Auto (Bld)Ordered By: Renard Burgos on 08-07-2023 Immature granulocytes/100 WBC (Bld) 0.400 % 0.0-0.9 [facility] Comment on above: IG% - Immature Granu locytes (promyelocytes, myelocytes and metamyelocytes) > 1% indicates that a LEFT SHIFT is Present. Laboratory - Hematology and Cell countsOrdered By: Renard Burgos on 08-07-2023 MCH (RBC) [Entitic mass] 29.4 pg 27.0-32.0 [facility] MCHC (RBC) [Mass/Vol] 32.7 g/dL 32-36 [facility] Nucleated RBC/100 WBC (Bld) [Ratio] 0 % 0-5 [facility] Platelet mean volume (Bld) [Entitic vol] 10.7 fL 6.2-12.0 [facility] Platelets (Bld) [#/Vol] 210 10*3/uL 150-450 [facility] RBC Auto (Bld) [#/Vol]Ordere d By: Renard Burgos on 08-07-2023 RBC (Bld) [#/Vol] 4.72 10*6/uL 4.6-6.2 [facility] Absolute lymphocyte countOrd ered By: Renard Burgos on 07-31-2023 Lymphocytes Auto (Unsp spec) [#/Vol] 2.04 10*3/uL 0.83-4.51 [facility] Automated lymphocyte count a s percentage of total leukocytesOrdered By: Renard Burgos on 07-31-2023 Lymphocytes/100 WBC Auto (Unsp spec) 24.2 % 19-41 [facility] Basophil percentageOrdered B y: Renard Burgos on 07-31-2023 Basophils/100 WBC (Bld) 0.6 % 0-1 [facility] Eosinophils/100 WBC (Bld) 0.6 % 0-5 [facility] Hemoglobin (Bld) [Mass/Vol] 13.9 g/dL 13.0-16.5 [facility] Monocytes/100 WBC (Bld) 8.5 % 0-10 [facility] Neutrophils (Bld) [#/Vol] 5.5 10*3/uL 2.0-7.7 [facility] Neutrophils/100 WBC (Bld) 65.7 % 47-70 [facility] WBC (Bld) [#/Vol] 8.4 10*3/uL 4.4-11.0 [facility] Determination of erythrocyte mean corpuscular volume (MCV)Ordered By: Renard Burgos on 07-31-2023 MCV (RBC) [Entitic vol] 89.7 fL 80-94 [facility] Erythrocyte distribution wid th ratioOrdered By: Renard Burgos on 07-31-2023 Erythrocyte distribution width (RBC) [Ratio] 12.8 % 11.6-14.6 [facility] Erythrocyte distribution wid th standard deviationOrdered By: Renard Burgos on 07-31-2023 Erythrocyte distribution width (RBC) [Entitic vol] 42.2 fL 35.1-43.9 [facility] Hematocrit Auto (Bld) [Volum e fraction]Ordered By: Renard Burgos on 07-31-2023 Hematocrit (Bld) [Volume fraction] 41.7 % 40-54 [facility] Immature granulocytes/100 WB C Auto (Bld)Ordered By: Renard Burgos on 07-31-2023 Immature granulocytes/100 WBC (Bld) 0.400 % 0.0-0.9 [facility] Comment on above: IG% - Immature Granu locytes (promyelocytes, myelocytes and metamyelocytes) > 1% indicates that a LEFT SHIFT is Present. Laboratory - Hematology and Cell countsOrdered By: Renard Burgos on 07-31-2023 MCH (RBC) [Entitic mass] 29.9 pg 27.0-32.0 [facility] MCHC (RBC) [Mass/Vol] 33.3 g/dL 32-36 [facility] Nucleated RBC/100 WBC (Bld) [Ratio] 0 % 0-5 [facility] Platelet mean volume (Bld) [Entitic vol] 10.6 fL 6.2-12.0 [facility] Platelets (Bld) [#/Vol] 201 10*3/uL 150-450 [facility] RBC Auto (Bld) [#/Vol]Ordere d By: Renard Burgos on 07-31-2023 RBC (Bld) [#/Vol] 4.65 10*6/uL 4.6-6.2 [facility] Absolute lymphocyte countOrd ered By: Renard Burgos on 07-24-2023 Lymphocytes Auto (Unsp spec) [#/Vol] 2.00 10*3/uL 0.83-4.51 [facility] Automated lymphocyte count a s percentage of total leukocytesOrdered By: Renard Burgos on 07-24-2023 Lymphocytes/100 WBC Auto (Unsp spec) 26.2 % 19-41 [facility] Basophil percentageOrdered B y: Renard Burgos on 07-24-2023 Basophils/100 WBC (Bld) 0.7 % 0-1 [facility] Eosinophils/100 WBC (Bld) 0.7 % 0-5 [facility] Hemoglobin (Bld) [Mass/Vol] 14.2 g/dL 13.0-16.5 [facility] Monocytes/100 WBC (Bld) 6.4 % 0-10 [facility] Neutrophils (Bld) [#/Vol] 5.0 10*3/uL 2.0-7.7 [facility] Neutrophils/100 WBC (Bld) 65.6 % 47-70 [facility] WBC (Bld) [#/Vol] 7.6 10*3/uL 4.4-11.0 [facility] Determination of erythrocyte mean corpuscular volume (MCV)Ordered By: Renard Burgos on 07-24-2023 MCV (RBC) [Entitic vol] 89.8 fL 80-94 [facility] Erythrocyte distribution wid th ratioOrdered By: Renard Burgos on 07-24-2023 Erythrocyte distribution width (RBC) [Ratio] 12.8 % 11.6-14.6 [facility] Erythrocyte distribution wid th standard deviationOrdered By: Renard Burgos on 07-24-2023 Erythrocyte distribution width (RBC) [Entitic vol] 42.0 fL 35.1-43.9 [facility] Hematocrit Auto (Bld) [Volum e fraction]Ordered By: Renard Burgos on 07-24-2023 Hematocrit (Bld) [Volume fraction] 43.3 % 40-54 [facility] Immature granulocytes/100 WB C Auto (Bld)Ordered By: Renard Burgos on 07-24-2023 Immature granulocytes/100 WBC (Bld) 0.400 % 0.0-0.9 [facility] Comment on above: IG% - Immature Granu locytes (promyelocytes, myelocytes and metamyelocytes) > 1% indicates that a LEFT SHIFT is Present. Laboratory - Hematology and Cell countsOrdered By: Renard Burgos on 07-24-2023 MCH (RBC) [Entitic mass] 29.5 pg 27.0-32.0 [facility] MCHC (RBC) [Mass/Vol] 32.8 g/dL 32-36 [facility] Nucleated RBC/100 WBC (Bld) [Ratio] 0 % 0-5 [facility] Platelet mean volume (Bld) [Entitic vol] 11.0 fL 6.2-12.0 [facility] Platelets (Bld) [#/Vol] 215 10*3/uL 150-450 [facility] RBC Auto (Bld) [#/Vol]Ordere d By: Renard Burgos on 07-24-2023 RBC (Bld) [#/Vol] 4.82 10*6/uL 4.6-6.2 [facility] Absolute lymphocyte countOrd ered By: Renard Burgos on 07-17-2023 Lymphocytes Auto (Unsp spec) [#/Vol] 2.22 10*3/uL 0.83-4.51 [facility] Automated lymphocyte count a s percentage of total leukocytesOrdered By: Renard Burgos on 07-17-2023 Lymphocytes/100 WBC Auto (Unsp spec) 25.4 % 19-41 [facility] Basophil percentageOrdered B y: Renard Burgos on 07-17-2023 Basophils/100 WBC (Bld) 0.5 % 0-1 [facility] Cholesterol [Mass/Vol] 126 mg/dL <200 [facility] Comment on above: <200 mg/dL Desirable 200-240 mg/dL Borderline >240 mg/dL High Risk Eosinophils/100 WBC (Bld) 0.6 % 0-5 [facility] Hemoglobin (Bld) [Mass/Vol] 14.0 g/dL 13.0-16.5 [facility] Monocytes/100 WBC (Bld) 6.6 % 0-10 [facility] Neutrophils (Bld) [#/Vol] 5.8 10*3/uL 2.0-7.7 [facility] Neutrophils/100 WBC (Bld) 66.4 % 47-70 [facility] Triglyceride [Mass/Vol] 176 mg/dL <199 [facility] Comment on above: The drugs N-Acetylcy steine and Metamizole may falsely depress this assay.Serum Triglycerides Reference Interval Normal <150 mg/dL Borderline high 150 - 199 mg/dL High 200 - 499 mg/dL Very High > or = 500 mg/dL WBC (Bld) [#/Vol] 8.7 10*3/uL 4.4-11.0 [facility] Determination of erythrocyte mean corpuscular volume (MCV)Ordered By: Renard Burgos on 07-17-2023 MCV (RBC) [Entitic vol] 90.5 fL 80-94 [facility] Erythrocyte distribution wid th ratioOrdered By: Renard Burgos on 07-17-2023 Erythrocyte distribution width (RBC) [Ratio] 12.4 % 11.6-14.6 [facility] Erythrocyte distribution wid th standard deviationOrdered By: Renard Burgos on 07-17-2023 Erythrocyte distribution width (RBC) [Entitic vol] 41.1 fL 35.1-43.9 [facility] Hematocrit Auto (Bld) [Volum e fraction]Ordered By: Renard Burgos on 07-17-2023 Hematocrit (Bld) [Volume fraction] 42.8 % 40-54 [facility] Immature granulocytes/100 WB C Auto (Bld)Ordered By: Renard uBrgos on 07-17-2023 Immature granulocytes/100 WBC (Bld) 0.500 % 0.0-0.9 [facility] Comment on above: IG% - Immature Granu locytes (promyelocytes, myelocytes and metamyelocytes) > 1% indicates that a LEFT SHIFT is Present. Laboratory - Chemistry and C hemistry - challengeOrdered By: Renard Burgos on 07-17-2023 Cholesterol in HDL [Mass/Vol] 28 mg/dL >40 [facility] Comment on above: The drugs N-Acetylcy steine and Metamizole may falsely depress this assay. Reference Range HDL <40 mg/dL Low HDL Cholesterol HDL >or= 60 mg/dL High HDL Cholesterol Cholesterol in LDL [Mass/Vol] 63 mg/dL 0-130 [facility] Laboratory - Hematology and Cell countsOrdered By: Renard Burgos on 07-17-2023 MCH (RBC) [Entitic mass] 29.6 pg 27.0-32.0 [facility] MCHC (RBC) [Mass/Vol] 32.7 g/dL 32-36 [facility] Nucleated RBC/100 WBC (Bld) [Ratio] 0 % 0-5 [facility] Platelet mean volume (Bld) [Entitic vol] 10.9 fL 6.2-12.0 [facility] Platelets (Bld) [#/Vol] 193 10*3/uL 150-450 [facility] No Panel InformationOrdered By: Renard Burgos on 07-17-2023 Vitamin D 25-Hydroxy 33.1 ng/mL [facility] Comment on above: Vitamin D 25(OH) Sta tus Range Deficiency <20 ng/mL (50nmol/L) Insufficiency 20 - 30 ng/mL (50 - 75 nmol/L) Sufficiency 30 - 100 ng/mL (75 - 250 nmol/L) Toxicity >100 ng/mL (>250 nmol/L) VLDL Cholesterol 35 mg/dL 5-40 [facility] RBC Auto (Bld) [#/Vol]Ordere d By: Renard Burgos on 07-17-2023 RBC (Bld) [#/Vol] 4.73 10*6/uL 4.6-6.2 [facility] Absolute lymphocyte countOrd ered By: Renard Burgos on 07-10-2023 Lymphocytes Auto (Unsp spec) [#/Vol] 2.14 10*3/uL 0.83-4.51 [facility] Automated lymphocyte count a s percentage of total leukocytesOrdered By: Renard Burgos on 07-10-2023 Lymphocytes/100 WBC Auto (Unsp spec) 24.7 % 19-41 [facility] Basophil percentageOrdered B y: Renard Burgos on 07-10-2023 Basophils/100 WBC (Bld) 0.3 % 0-1 [facility] Eosinophils/100 WBC (Bld) 0.3 % 0-5 [facility] Hemoglobin (Bld) [Mass/Vol] 13.8 g/dL 13.0-16.5 [facility] Monocytes/100 WBC (Bld) 7.8 % 0-10 [facility] Neutrophils (Bld) [#/Vol] 5.8 10*3/uL 2.0-7.7 [facility] Neutrophils/100 WBC (Bld) 66.4 % 47-70 [facility] WBC (Bld) [#/Vol] 8.7 10*3/uL 4.4-11.0 [facility] Determination of erythrocyte mean corpuscular volume (MCV)Ordered By: Renard Burgos on 07-10-2023 MCV (RBC) [Entitic vol] 88.9 fL 80-94 [facility] Erythrocyte distribution wid th ratioOrdered By: Renard Burgos on 07-10-2023 Erythrocyte distribution width (RBC) [Ratio] 12.6 % 11.6-14.6 [facility] Erythrocyte distribution wid th standard deviationOrdered By: Renard Burgos on 07-10-2023 Erythrocyte distribution width (RBC) [Entitic vol] 40.6 fL 35.1-43.9 [facility] Hematocrit Auto (Bld) [Volum e fraction]Ordered By: Renard Burgos on 07-10-2023 Hematocrit (Bld) [Volume fraction] 41.0 % 40-54 [facility] Immature granulocytes/100 WB C Auto (Bld)Ordered By: Renard Burgos on 07-10-2023 Immature granulocytes/100 WBC (Bld) 0.500 % 0.0-0.9 [facility] Comment on above: IG% - Immature Granu locytes (promyelocytes, myelocytes and metamyelocytes) > 1% indicates that a LEFT SHIFT is Present. Laboratory - Hematology and Cell countsOrdered By: Renard Burgos on 07-10-2023 MCH (RBC) [Entitic mass] 29.9 pg 27.0-32.0 [facility] MCHC (RBC) [Mass/Vol] 33.7 g/dL 32-36 [facility] Nucle[facility] RBC/100 WBC (Bld) [Ratio] 0 % 0-5 [facility] Platelet mean volume (Bld) [Entitic vol] 11.0 fL 6.2-12.0 [facility] Platelets (Bld) [#/Vol] 215 10*3/uL 150-450 [facility] RBC Auto (Bld) [#/Vol]Ordere d By: Renard Burgos on 07-10-2023 RBC (Bld) [#/Vol] 4.61 10*6/uL 4.6-6.2 [facility] Absolute lymphocyte countOrd ered By: Renard Burgos on 07-03-2023 Lymphocytes Auto (Unsp spec) [#/Vol] 1.84 10*3/uL 0.83-4.51 [facility] Automated lymphocyte count a s percentage of total leukocytesOrdered By: Renard Burgos on 07-03-2023 Lymphocytes/100 WBC Auto (Unsp spec) 16.9 % 19-41 [facility] Basophil percentageOrdered B y: Renard Burgos on 07-03-2023 Basophil percentage 3.17 ng/mL 0.0-4.0 [facility] Comment on above: This test was perfor med using the TPSA assay method for the[employer] chemistry system. Values obtained with differentassay methods cannot be used interchangably.When changing PSA assays in the course of monitoring apatient, additional sequential testing should be carriedout to confirm baseline values. Basophils/100 WBC (Bld) 0.5 % 0-1 [facility] Eosinophils/100 WBC (Bld) 0.4 % 0-5 [facility] Hemoglobin (Bld) [Mass/Vol] 13.2 g/dL 13.0-16.5 [facility] Monocytes/100 WBC (Bld) 7.4 % 0-10 [facility] Neutrophils (Bld) [#/Vol] 8.1 10*3/uL 2.0-7.7 [facility] Neutrophils/100 WBC (Bld) 74.4 % 47-70 [facility] WBC (Bld) [#/Vol] 10.9 10*3/uL 4.4-11.0 [facility] Determination of erythrocyte mean corpuscular volume (MCV)Ordered By: Renard Burgos on 07-03-2023 MCV (RBC) [Entitic vol] 89.8 fL 80-94 [facility] Erythrocyte distribution wid th ratioOrdered By: Renard Burgos on 07-03-2023 Erythrocyte distribution width (RBC) [Ratio] 12.7 % 11.6-14.6 [facility] Erythrocyte distribution wid th standard deviationOrdered By: Renard Burgos on 07-03-2023 Erythrocyte distribution width (RBC) [Entitic vol] 41.9 fL 35.1-43.9 [facility] Hematocrit Auto (Bld) [Volum e fraction]Ordered By: Renard Burgos on 07-03-2023 Hematocrit (Bld) [Volume fraction] 40.3 % 40-54 [facility] Immature granulocytes/100 WB C Auto (Bld)Ordered By: Renard Burgos on 07-03-2023 Immature granulocytes/100 WBC (Bld) 0.400 % 0.0-0.9 [facility] Comment on above: IG% - Immature Granu locytes (promyelocytes, myelocytes and metamyelocytes) > 1% indicates that a LEFT SHIFT is Present. Laboratory - Hematology and Cell countsOrdered By: Renard Burgos on 07-03-2023 MCH (RBC) [Entitic mass] 29.4 pg 27.0-32.0 [facility] MCHC (RBC) [Mass/Vol] 32.8 g/dL 32-36 [facility] Nucleated RBC/100 WBC (Bld) [Ratio] 0 % 0-5 [facility] Platelet mean volume (Bld) [Entitic vol] 11.2 fL 6.2-12.0 [facility] Platelets (Bld) [#/Vol] 191 10*3/uL 150-450 [facility] RBC Auto (Bld) [#/Vol]Ordere d By: Renard Burgos on 07-03-2023 RBC (Bld) [#/Vol] 4.49 10*6/uL 4.6-6.2 [facility] Absolute lymphocyte countOrd ered By: Renard Burgos on 06-26-2023 Lymphocytes Auto (Unsp spec) [#/Vol] 2.23 10*3/uL 0.83-4.51 [facility] Automated lymphocyte count a s percentage of total leukocytesOrdered By: Renard Burgos on 06-26-2023 Lymphocytes/100 WBC Auto (Unsp spec) 27.3 % 19-41 [facility] Basophil percentageOrdered B y: Renard Burgos on 06-26-2023 Basophils/100 WBC (Bld) 0.5 % 0-1 [facility] Eosinophils/100 WBC (Bld) 0.7 % 0-5 [facility] Hemoglobin (Bld) [Mass/Vol] 13.7 g/dL 13.0-16.5 [facility] Monocytes/100 WBC (Bld) 9.5 % 0-10 [facility] Neutrophils (Bld) [#/Vol] 5.1 10*3/uL 2.0-7.7 [facility] Neutrophils/100 WBC (Bld) 61.8 % 47-70 [facility] WBC (Bld) [#/Vol] 8.2 10*3/uL 4.4-11.0 [facility] Determination of erythrocyte mean corpuscular volume (MCV)Ordered By: Renard Burgos on 06-26-2023 MCV (RBC) [Entitic vol] 92.2 fL 80-94 [facility] Erythrocyte distribution wid th ratioOrdered By: Renard Burgos on 06-26-2023 Erythrocyte distribution width (RBC) [Ratio] 12.7 % 11.6-14.6 [facility] Erythrocyte distribution wid th standard deviationOrdered By: Renard Burgos on 06-26-2023 Erythrocyte distribution width (RBC) [Entitic vol] 42.8 fL 35.1-43.9 [facility] Hematocrit Auto (Bld) [Volum e fraction]Ordered By: Renard Burgos on 06-26-2023 Hematocrit (Bld) [Volume fraction] 42.6 % 40-54 [facility] Immature granulocytes/100 WB C Auto (Bld)Ordered By: Renard Burgos on 06-26-2023 Immature granulocytes/100 WBC (Bld) 0.200 % 0.0-0.9 [facility] Comment on above: IG% - Immature Granu locytes (promyelocytes, myelocytes and metamyelocytes) > 1% indicates that a LEFT SHIFT is Present. Laboratory - Hematology and Cell countsOrdered By: Renard Burgos on 06-26-2023 MCH (RBC) [Entitic mass] 29.7 pg 27.0-32.0 [facility] MCHC (RBC) [Mass/Vol] 32.2 g/dL 32-36 [facility] Nucleated RBC/100 WBC (Bld) [Ratio] 0 % 0-5 [facility] Platelet mean volume (Bld) [Entitic vol] 11.0 fL 6.2-12.0 [facility] Platelets (Bld) [#/Vol] 182 10*3/uL 150-450 [facility] RBC Auto (Bld) [#/Vol]Ordere d By: Renard Burgos on 06-26-2023 RBC (Bld) [#/Vol] 4.62 10*6/uL 4.6-6.2 [facility] Absolute lymphocyte countOrd ered By: Renard Burgos on 06-19-2023 Lymphocytes Auto (Unsp spec) [#/Vol] 2.13 10*3/uL 0.83-4.51 [facility] Automated lymphocyte count a s percentage of total leukocytesOrdered By: Renard Burgos on 06-19-2023 Lymphocytes/100 WBC Auto (Unsp spec) 28.8 % 19-41 [facility] Basophil percentageOrdered B y: Renard Burgos on 06-19-2023 Basophils/100 WBC (Bld) 0.5 % 0-1 [facility] Eosinophils/100 WBC (Bld) 0.5 % 0-5 [facility] Hemoglobin (Bld) [Mass/Vol] 13.7 g/dL 13.0-16.5 [facility] Monocytes/100 WBC (Bld) 8.1 % 0-10 [facility] Neutrophils (Bld) [#/Vol] 4.6 10*3/uL 2.0-7.7 [facility] Neutrophils/100 WBC (Bld) 61.6 % 47-70 [facility] WBC (Bld) [#/Vol] 7.4 10*3/uL 4.4-11.0 [facility] Determination of erythrocyte mean corpuscular volume (MCV)Ordered By: Renard Burgos on 06-19-2023 MCV (RBC) [Entitic vol] 91.7 fL 80-94 [facility] Erythrocyte distribution wid th ratioOrdered By: Renard Burgos on 06-19-2023 Erythrocyte distribution width (RBC) [Ratio] 12.7 % 11.6-14.6 [facility] Erythrocyte distribution wid th standard deviationOrdered By: Renard Burgos on 06-19-2023 Erythrocyte distribution width (RBC) [Entitic vol] 42.8 fL 35.1-43.9 [facility] Hematocrit Auto (Bld) [Volum e fraction]Ordered By: Renard Burgos on 06-19-2023 Hematocrit (Bld) [Volume fraction] 43.1 % 40-54 [facility] Immature granulocytes/100 WB C Auto (Bld)Ordered By: Renard Burgos on 06-19-2023 Immature granulocytes/100 WBC (Bld) 0.500 % 0.0-0.9 [facility] Comment on above: IG% - Immature Granu locytes (promyelocytes, myelocytes and metamyelocytes) > 1% indicates that a LEFT SHIFT is Present. Laboratory - Hematology and Cell countsOrdered By: Renard Burgos on 06-19-2023 MCH (RBC) [Entitic mass] 29.1 pg 27.0-32.0 [facility] MCHC (RBC) [Mass/Vol] 31.8 g/dL 32-36 [facility] Nucleated RBC/100 WBC (Bld) [Ratio] 0 % 0-5 [facility] Platelet mean volume (Bld) [Entitic vol] 11.1 fL 6.2-12.0 [facility] Platelets (Bld) [#/Vol] 201 10*3/uL 150-450 [facility] RBC Auto (Bld) [#/Vol]Ordere d By: Renard Burgos on 06-19-2023 RBC (Bld) [#/Vol] 4.70 10*6/uL 4.6-6.2 [facility] Absolute lymphocyte countOrd ered By: Renard Burgos on 06-12-2023 Lymphocytes Auto (Unsp spec) [#/Vol] 2.17 10*3/uL 0.83-4.51 [facility] Automated lymphocyte count a s percentage of total leukocytesOrdered By: Renard Burgos on 06-12-2023 Lymphocytes/100 WBC Auto (Unsp spec) 26.7 % 19-41 [facility] Basophil percentageOrdered B y: Renard Burgos on 06-12-2023 Basophils/100 WBC (Bld) 0.4 % 0-1 [facility] Eosinophils/100 WBC (Bld) 0.5 % 0-5 [facility] Hemoglobin (Bld) [Mass/Vol] 13.5 g/dL 13.0-16.5 [facility] Monocytes/100 WBC (Bld) 9.0 % 0-10 [facility] Neutrophils (Bld) [#/Vol] 5.1 10*3/uL 2.0-7.7 [facility] Neutrophils/100 WBC (Bld) 63.0 % 47-70 [facility] WBC (Bld) [#/Vol] 8.1 10*3/uL 4.4-11.0 [facility] Determination of erythrocyte mean corpuscular volume (MCV)Ordered By: Renard Burgos on 06-12-2023 MCV (RBC) [Entitic vol] 91.3 fL 80-94 [facility] Erythrocyte distribution wid th ratioOrdered By: Renard Burgos on 06-12-2023 Erythrocyte distribution width (RBC) [Ratio] 12.6 % 11.6-14.6 [facility] Erythrocyte distribution wid th standard deviationOrdered By: Renard Burgos on 06-12-2023 Erythrocyte distribution width (RBC) [Entitic vol] 41.5 fL 35.1-43.9 [facility] Hematocrit Auto (Bld) [Volum e fraction]Ordered By: Renard Burgos on 06-12-2023 Hematocrit (Bld) [Volume fraction] 40.8 % 40-54 [facility] Immature granulocytes/100 WB C Auto (Bld)Ordered By: Renard Burgos on 06-12-2023 Immature granulocytes/100 WBC (Bld) 0.400 % 0.0-0.9 [facility] Comment on above: IG% - Immature Granu locytes (promyelocytes, myelocytes and metamyelocytes) > 1% indicates that a LEFT SHIFT is Present. Laboratory - Hematology and Cell countsOrdered By: Renard Burgos on 06-12-2023 MCH (RBC) [Entitic mass] 30.2 pg 27.0-32.0 [facility] MCHC (RBC) [Mass/Vol] 33.1 g/dL 32-36 [facility] Nucleated RBC/100 WBC (Bld) [Ratio] 0 % 0-5 [facility] Platelet mean volume (Bld) [Entitic vol] 11.0 fL 6.2-12.0 [facility] Platelets (Bld) [#/Vol] 195 10*3/uL 150-450 [facility] RBC Auto (Bld) [#/Vol]Ordere d By: Renard Burgos on 06-12-2023 RBC (Bld) [#/Vol] 4.47 10*6/uL 4.6-6.2 [facility] Absolute lymphocyte countOrd ered By: Renard Burgos on 06-05-2023 Lymphocytes Auto (Unsp spec) [#/Vol] 2.05 10*3/uL 0.83-4.51 [facility] Automated lymphocyte count a s percentage of total leukocytesOrdered By: Renard Burgos on 06-05-2023 Lymphocytes/100 WBC Auto (Unsp spec) 24.1 % 19-41 [facility] Basophil percentageOrdered B y: Renard Burgos on 06-05-2023 Basophils/100 WBC (Bld) 0.5 % 0-1 [facility] Eosinophils/100 WBC (Bld) 0.5 % 0-5 [facility] Hemoglobin (Bld) [Mass/Vol] 13.6 g/dL 13.0-16.5 [facility] Monocytes/100 WBC (Bld) 7.6 % 0-10 [facility] Neutrophils (Bld) [#/Vol] 5.7 10*3/uL 2.0-7.7 [facility] Neutrophils/100 WBC (Bld) 66.9 % 47-70 [facility] WBC (Bld) [#/Vol] 8.5 10*3/uL 4.4-11.0 [facility] Determination of erythrocyte mean corpuscular volume (MCV)Ordered By: Renard Burgos on 06-05-2023 MCV (RBC) [Entitic vol] 89.7 fL 80-94 [facility] Erythrocyte distribution wid th ratioOrdered By: Renard Burgos on 06-05-2023 Erythrocyte distribution width (RBC) [Ratio] 12.6 % 11.6-14.6 [facility] Erythrocyte distribution wid th standard deviationOrdered By: Renard Burgos on 06-05-2023 Erythrocyte distribution width (RBC) [Entitic vol] 41.1 fL 35.1-43.9 [facility] Hematocrit Auto (Bld) [Volum e fraction]Ordered By: Renard Burgos on 06-05-2023 Hematocrit (Bld) [Volume fraction] 41.0 % 40-54 [facility] Immature granulocytes/100 WB C Auto (Bld)Ordered By: Renard Burgos on 06-05-2023 Immature granulocytes/100 WBC (Bld) 0.400 % 0.0-0.9 [facility] Comment on above: IG% - Immature Granu locytes (promyelocytes, myelocytes and metamyelocytes) > 1% indicates that a LEFT SHIFT is Present. Laboratory - Hematology and Cell countsOrdered By: Renard Burgos on 06-05-2023 MCH (RBC) [Entitic mass] 29.8 pg 27.0-32.0 [facility] MCHC (RBC) [Mass/Vol] 33.2 g/dL 32-36 [facility] Nucleated RBC/100 WBC (Bld) [Ratio] 0 % 0-5 [facility] Platelets (Bld) [#/Vol] 193 10*3/uL 150-450 [facility] Platelet mean volume Adam-Ec ker (Bld) [Entitic vol]Ordered By: Renard Burgos on 06-05-2023 Platelet mean volume (Bld) [Entitic vol] 10.8 fL 6.2-12.0 [facility] RBC Auto (Bld) [#/Vol]Ordere d By: Renard Burgos on 06-05-2023 RBC (Bld) [#/Vol] 4.57 10*6/uL 4.6-6.2 [facility] Absolute lymphocyte countOrd ered By: Renard Burgos on 05-29-2023 Lymphocytes Auto (Unsp spec) [#/Vol] 2.32 10*3/uL 0.83-4.51 [facility] Automated lymphocyte count a s percentage of total leukocytesOrdered By: Renard Burgos on 05-29-2023 Lymphocytes/100 WBC Auto (Unsp spec) 26.7 % 19-41 [facility] Basophil percentageOrdered B y: Renard Burgos on 05-29-2023 Basophils/100 WBC (Bld) 0.6 % 0-1 [facility] Eosinophils/100 WBC (Bld) 0.5 % 0-5 [facility] Hemoglobin (Bld) [Mass/Vol] 14.2 g/dL 13.0-16.5 [facility] Monocytes/100 WBC (Bld) 6.8 % 0-10 [facility] Neutrophils (Bld) [#/Vol] 5.7 10*3/uL 2.0-7.7 [facility] Neutrophils/100 WBC (Bld) 65.2 % 47-70 [facility] WBC (Bld) [#/Vol] 8.7 10*3/uL 4.4-11.0 [facility] Determination of erythrocyte mean corpuscular volume (MCV)Ordered By: Renard Burgos on 05-29-2023 MCV (RBC) [Entitic vol] 94.0 fL 80-94 [facility] Erythrocyte distribution wid th ratioOrdered By: Renard Burgos on 05-29-2023 Erythrocyte distribution width (RBC) [Ratio] 12.6 % 11.6-14.6 [facility] Erythrocyte distribution wid th standard deviationOrdered By: Renard Burgos on 05-29-2023 Erythrocyte distribution width (RBC) [Entitic vol] 43.0 fL 35.1-43.9 [facility] Hematocrit Auto (Bld) [Volum e fraction]Ordered By: Renard Burgos on 05-29-2023 Hematocrit (Bld) [Volume fraction] 45.4 % 40-54 [facility] Immature granulocytes/100 WB C Auto (Bld)Ordered By: Renard Burgos on 05-29-2023 Immature granulocytes/100 WBC (Bld) 0.200 % 0.0-0.9 [facility] Comment on above: IG% - Immature Granu locytes (promyelocytes, myelocytes and metamyelocytes) > 1% indicates that a LEFT SHIFT is Present. Laboratory - Hematology and Cell countsOrdered By: Renard Burgos on 05-29-2023 MCH (RBC) [Entitic mass] 29.4 pg 27.0-32.0 [facility] MCHC (RBC) [Mass/Vol] 31.3 g/dL 32-36 [facility] Nucleated RBC/100 WBC (Bld) [Ratio] 0 % 0-5 [facility] Platelets (Bld) [#/Vol] 116 10*3/uL 150-450 [facility] Platelet mean volume Adam-Ec ker (Bld) [Entitic vol]Ordered By: Renard Burgos on 05-29-2023 Platelet mean volume (Bld) [Entitic vol] 11.1 fL 6.2-12.0 [facility] RBC Auto (Bld) [#/Vol]Ordere d By: Renard Burgos on 05-29-2023 RBC (Bld) [#/Vol] 4.83 10*6/uL 4.6-6.2 [facility] Absolute lymphocyte countOrd ered By: Renard Burgos on 05-22-2023 Lymphocytes Auto (Unsp spec) [#/Vol] 2.40 10*3/uL 0.83-4.51 [facility] Automated lymphocyte count a s percentage of total leukocytesOrdered By: Renard Burgos on 05-22-2023 Lymphocytes/100 WBC Auto (Unsp spec) 25.6 % 19-41 [facility] Basophil percentageOrdered B y: Renard Burgos on 05-22-2023 Basophils/100 WBC (Bld) 0.4 % 0-1 [facility] Eosinophils/100 WBC (Bld) 0.4 % 0-5 [facility] Hemoglobin (Bld) [Mass/Vol] 13.7 g/dL 13.0-16.5 [facility] Monocytes/100 WBC (Bld) 9.1 % 0-10 [facility] Neutrophils (Bld) [#/Vol] 6.0 10*3/uL 2.0-7.7 [facility] Neutrophils/100 WBC (Bld) 63.9 % 47-70 [facility] WBC (Bld) [#/Vol] 9.4 10*3/uL 4.4-11.0 [facility] Determination of erythrocyte mean corpuscular volume (MCV)Ordered By: Renard Burgos on 05-22-2023 MCV (RBC) [Entitic vol] 91.8 fL 80-94 [facility] Erythrocyte distribution wid th ratioOrdered By: Renard Burgos on 05-22-2023 Erythrocyte distribution width (RBC) [Ratio] 12.8 % 11.6-14.6 [facility] Erythrocyte distribution wid th standard deviationOrdered By: Renard Burgos on 05-22-2023 Erythrocyte distribution width (RBC) [Entitic vol] 43.4 fL 35.1-43.9 [facility] Hematocrit Auto (Bld) [Volum e fraction]Ordered By: Renard Burgos on 05-22-2023 Hematocrit (Bld) [Volume fraction] 41.5 % 40-54 [facility] Immature granulocytes/100 WB C Auto (Bld)Ordered By: Renard Burgos on 05-22-2023 Immature granulocytes/100 WBC (Bld) 0.600 % 0.0-0.9 [facility] Comment on above: IG% - Immature Granu locytes (promyelocytes, myelocytes and metamyelocytes) > 1% indicates that a LEFT SHIFT is Present. Laboratory - Hematology and Cell countsOrdered By: Renard Burgos on 05-22-2023 MCH (RBC) [Entitic mass] 30.3 pg 27.0-32.0 [facility] MCHC (RBC) [Mass/Vol] 33.0 g/dL 32-36 [facility] Nucleated RBC/100 WBC (Bld) [Ratio] 0 % 0-5 [facility] Platelets (Bld) [#/Vol] 192 10*3/uL 150-450 [facility] Platelet mean volume Adam-Ec ker (Bld) [Entitic vol]Ordered By: Renard Burgos on 05-22-2023 Platelet mean volume (Bld) [Entitic vol] 11.3 fL 6.2-12.0 [facility] RBC Auto (Bld) [#/Vol]Ordere d By: Renard Burgos on 05-22-2023 RBC (Bld) [#/Vol] 4.52 10*6/uL 4.6-6.2 [facility] Absolute lymphocyte countOrd ered By: Renard Burgos on 05-15-2023 Lymphocytes Auto (Unsp spec) [#/Vol] 2.11 10*3/uL 0.83-4.51 [facility] Basophil percentageOrdered B y: Renard Burgos on 05-15-2023 Basophils/100 WBC (Bld) 0.6 % 0-1 [facility] Eosinophils/100 WBC (Bld) 0.8 % 0-5 [facility] Neutrophils (Bld) [#/Vol] 4.9 10*3/uL 2.0-7.7 [facility] Neutrophils/100 WBC (Bld) 62.4 % 47-70 [facility] WBC (Bld) [#/Vol] 7.9 10*3/uL 4.4-11.0 [facility] Blood erythrocytes count (nu mber/volume)Ordered By: Renard Burgos on 05-15-2023 RBC (Bld) [#/Vol] 4.61 10*6/uL 4.6-6.2 [facility] Blood hemoglobin measurement (mass/volume)Ordered By: Renard Burgos on 05-15-2023 Hemoglobin (Bld) [Mass/Vol] 13.9 g/dL 13.0-16.5 [facility] Blood lymphocytes/100 leukoc ytesOrdered By: Renard Burgos on 05-15-2023 Lymphocytes/100 WBC (Bld) 26.7 % 19-41 [facility] Blood monocytes/100 leukocyt esOrdered By: Renard Burgos on 05-15-2023 Monocytes/100 WBC (Bld) 9.1 % 0-10 [facility] Blood platelet mean volumeOr dered By: Renard Burgos on 05-15-2023 Platelet mean volume (Bld) [Entitic vol] 10.7 fL 6.2-12.0 [facility] Determination of erythrocyte mean corpuscular volume (MCV)Ordered By: Renard Burgos on 05-15-2023 MCV (RBC) [Entitic vol] 90.5 fL 80-94 [facility] Hematocrit Auto (Bld) [Volum e fraction]Ordered By: Renard Burgos on 05-15-2023 Hematocrit (Bld) [Volume fraction] 41.7 % 40-54 [facility] Laboratory - Hematology and Cell countsOrdered By: Renard Burgos on 05-15-2023 Erythrocyte distribution width (RBC) [Entitic vol] 42.4 fL 35.1-43.9 [facility] Erythrocyte distribution width (RBC) [Ratio] 12.9 % 11.6-14.6 [facility] Immature granulocytes/100 WBC (Bld) 0.400 % 0.0-0.9 [facility] Comment on above: IG% - Immature Granu locytes (promyelocytes, myelocytes and metamyelocytes) > 1% indicates that a LEFT SHIFT is Present. MCH (RBC) [Entitic mass] 30.2 pg 27.0-32.0 [facility] Nucleated RBC/100 WBC (Bld) [Ratio] 0 % 0-5 [facility] MCHC Auto (RBC) [Mass/Vol]Or dered By: Renard Burgos on 05-15-2023 MCHC (RBC) [Mass/Vol] 33.3 g/dL 32-36 [facility] Platelets bldOrdered By: Lyubov Burgos on 05-15-2023 Platelets (Bld) [#/Vol] 202 10*3/uL 150-450 [facility] Absolute lymphocyte countOrd ered By: Renard Burgos on 05-08-2023 Lymphocytes Auto (Unsp spec) [#/Vol] 2.06 10*3/uL 0.83-4.51 [facility] Basophil percentageOrdered B y: Renard Burgos on 05-08-2023 Basophils/100 WBC (Bld) 0.4 % 0-1 [facility] Eosinophils/100 WBC (Bld) 0.5 % 0-5 [facility] Neutrophils (Bld) [#/Vol] 5.0 10*3/uL 2.0-7.7 [facility] Neutrophils/100 WBC (Bld) 65.7 % 47-70 [facility] WBC (Bld) [#/Vol] 7.5 10*3/uL 4.4-11.0 [facility] Blood erythrocytes count (nu mber/volume)Ordered By: Renard Burgos on 05-08-2023 RBC (Bld) [#/Vol] 4.62 10*6/uL 4.6-6.2 [facility] Blood hemoglobin measurement (mass/volume)Ordered By: Renard Burgos on 05-08-2023 Hemoglobin (Bld) [Mass/Vol] 13.6 g/dL 13.0-16.5 [facility] Blood lymphocytes/100 leukoc ytesOrdered By: Renard Burgos on 05-08-2023 Lymphocytes/100 WBC (Bld) 27.4 % 19-41 [facility] Blood monocytes/100 leukocyt esOrdered By: Renard Burgos on 05-08-2023 Monocytes/100 WBC (Bld) 5.6 % 0-10 [facility] Blood platelet mean volumeOr dered By: Renard Burgos on 05-08-2023 Platelet mean volume (Bld) [Entitic vol] 11.0 fL 6.2-12.0 [facility] Determination of erythrocyte mean corpuscular volume (MCV)Ordered By: Renard Burgos on 05-08-2023 MCV (RBC) [Entitic vol] 91.8 fL 80-94 [facility] Hematocrit Auto (Bld) [Volum e fraction]Ordered By: Renard Burgos on 05-08-2023 Hematocrit (Bld) [Volume fraction] 42.4 % 40-54 [facility] Laboratory - Hematology and Cell countsOrdered By: Renard Burgos on 05-08-2023 Erythrocyte distribution width (RBC) [Entitic vol] 43.1 fL 35.1-43.9 [facility] Erythrocyte distribution width (RBC) [Ratio] 13.0 % 11.6-14.6 [facility] Immature granulocytes/100 WBC (Bld) 0.400 % 0.0-0.9 [facility] Comment on above: IG% - Immature Granu locytes (promyelocytes, myelocytes and metamyelocytes) > 1% indicates that a LEFT SHIFT is Present. MCH (RBC) [Entitic mass] 29.4 pg 27.0-32.0 [facility] Nucleated RBC/100 WBC (Bld) [Ratio] 0 % 0-5 [facility] MCHC Auto (RBC) [Mass/Vol]Or dered By: Renard Burgos on 05-08-2023 MCHC (RBC) [Mass/Vol] 32.1 g/dL 32-36 [facility] Platelets bldOrdered By: Lyubov lizy Loretta on 05-08-2023 Platelets (Bld) [#/Vol] 226 10*3/uL 150-450 [facility] Absolute lymphocyte countOrd ered By: Renard Burgos on 04-17-2023 Lymphocytes Auto (Unsp spec) [#/Vol] 0.92 10*3/uL 0.83-4.51 [facility] Basophil percentageOrdered B y: Renard Burgos on 04-17-2023 Basophils/100 WBC (Bld) 0.1 % 0-1 [facility] Eosinophils/100 WBC (Bld) 0.0 % 0-5 [facility] Neutrophils (Bld) [#/Vol] 6.0 10*3/uL 2.0-7.7 [facility] Neutrophils/100 WBC (Bld) 81.4 % 47-70 [facility] WBC (Bld) [#/Vol] 7.4 10*3/uL 4.4-11.0 [facility] Blood erythrocytes count (nu mber/volume)Ordered By: Renard Burgos on 04-17-2023 RBC (Bld) [#/Vol] 4.59 10*6/uL 4.6-6.2 [facility] Blood hemoglobin measurement (mass/volume)Ordered By: Renard Burgos on 04-17-2023 Hemoglobin (Bld) [Mass/Vol] 13.7 g/dL 13.0-16.5 [facility] Blood lymphocytes/100 leukoc ytesOrdered By: Renard Burgos on 04-17-2023 Lymphocytes/100 WBC (Bld) 12.5 % 19-41 [facility] Blood monocytes/100 leukocyt esOrdered By: Renard Burgos on 04-17-2023 Monocytes/100 WBC (Bld) 5.6 % 0-10 [facility] Blood platelet mean volumeOr dered By: Renard Burgos on 04-17-2023 Platelet mean volume (Bld) [Entitic vol] 10.9 fL 6.2-12.0 [facility] Determination of erythrocyte mean corpuscular volume (MCV)Ordered By: Renard Burgos on 04-17-2023 MCV (RBC) [Entitic vol] 90.8 fL 80-94 [facility] Hematocrit Auto (Bld) [Volum e fraction]Ordered By: Renard Burgos on 04-17-2023 Hematocrit (Bld) [Volume fraction] 41.7 % 40-54 [facility] Laboratory - Hematology and Cell countsOrdered By: Renard Burgos on 04-17-2023 Erythrocyte distribution width (RBC) [Entitic vol] 42.3 fL 35.1-43.9 [facility] Erythrocyte distribution width (RBC) [Ratio] 12.8 % 11.6-14.6 [facility] Immature granulocytes/100 WBC (Bld) 0.400 % 0.0-0.9 [facility] Comment on above: IG% - Immature Granu locytes (promyelocytes, myelocytes and metamyelocytes) > 1% indicates that a LEFT SHIFT is Present. MCH (RBC) [Entitic mass] 29.8 pg 27.0-32.0 [facility] Nucleated RBC/100 WBC (Bld) [Ratio] 0 % 0-5 [facility] MCHC Auto (RBC) [Mass/Vol]Or dered By: Renard Burgos on 04-17-2023 MCHC (RBC) [Mass/Vol] 32.9 g/dL 32-36 [facility] Platelets bldOrdered By: Lyubov Burgos on 04-17-2023 Platelets (Bld) [#/Vol] 194 10*3/uL 150-450 [facility] Basophil percentageOrdered B y: Renard Burgos on 04-14-2023 Bilirubin [Mass/Vol] 0.30 mg/dL 0.20-1.00 [facility] Comment on above: For patients on eltr ombopag therapy, use of Dimension Nora TBIL is not recommended. Protein [Mass/Vol] 6.2 g/dL 6.4-8.2 [facility] Direct bilirubinOrdered By: Renard Burgos on 04-14-2023 Bilirubin.direct [Mass/Vol] 0.11 mg/dL 0.00-0.30 [facility] Laboratory - Chemistry and C hemistry - challengeOrdered By: Renard Burgos on 04-14-2023 ALP [Catalytic activity/Vol] 139 U/L 45-117 [facility] ALT [Catalytic activity/Vol] 23 U/L 16-61 [facility] Globulin (S) [Mass/Vol] 3.2 g/dL 2.2-4.2 [facility] Serum or plasma albumin gordy urement (mass/volume)Ordered By: Renard Burgos on 04-14-2023 Albumin [Mass/Vol] 3.0 g/dL 3.2-5.0 [facility] Thin prep Papanicolaou smear with manual screeningOrdered By: Renard Burgos on 04-14-2023 Thin prep Papanicolaou smear with manual screening 14 U/L 15-37 [facility] Absolute lymphocyte countOrd ered By: Renard Burgos on 04-10-2023 Lymphocytes Auto (Unsp spec) [#/Vol] 2.54 10*3/uL 0.83-4.51 [facility] Basophil percentageOrdered B y: Renard Burgos on 04-10-2023 Basophils/100 WBC (Bld) 0.5 % 0-1 [facility] Eosinophils/100 WBC (Bld) 0.5 % 0-5 [facility] Neutrophils (Bld) [#/Vol] 5.1 10*3/uL 2.0-7.7 [facility] Neutrophils/100 WBC (Bld) 59.0 % 47-70 [facility] WBC (Bld) [#/Vol] 8.7 10*3/uL 4.4-11.0 [facility] Blood erythrocytes count (nu mber/volume)Ordered By: Renard Burgos on 04-10-2023 RBC (Bld) [#/Vol] 4.84 10*6/uL 4.6-6.2 [facility] Blood hemoglobin measurement (mass/volume)Ordered By: Renard Burgos on 04-10-2023 Hemoglobin (Bld) [Mass/Vol] 14.2 g/dL 13.0-16.5 [facility] Blood lymphocytes/100 leukoc ytesOrdered By: Renard Burgos on 04-10-2023 Lymphocytes/100 WBC (Bld) 29.4 % 19-41 [facility] Blood monocytes/100 leukocyt esOrdered By: Renard Burgos on 04-10-2023 Monocytes/100 WBC (Bld) 10.3 % 0-10 [facility] Blood platelet mean volumeOr dered By: Renard Burgos on 04-10-2023 Platelet mean volume (Bld) [Entitic vol] 11.1 fL 6.2-12.0 [facility] Determination of erythrocyte mean corpuscular volume (MCV)Ordered By: Renard Burgos on 04-10-2023 MCV (RBC) [Entitic vol] 91.5 fL 80-94 [facility] Hematocrit Auto (Bld) [Volum e fraction]Ordered By: Renard Burgos on 04-10-2023 Hematocrit (Bld) [Volume fraction] 44.3 % 40-54 [facility] Laboratory - Hematology and Cell countsOrdered By: Renrad Burgos on 04-10-2023 Erythrocyte distribution width (RBC) [Entitic vol] 41.9 fL 35.1-43.9 [facility] Erythrocyte distribution width (RBC) [Ratio] 12.6 % 11.6-14.6 [facility] Immature granulocytes/100 WBC (Bld) 0.300 % 0.0-0.9 [facility] Comment on above: IG% - Immature Granu locytes (promyelocytes, myelocytes and metamyelocytes) > 1% indicates that a LEFT SHIFT is Present. MCH (RBC) [Entitic mass] 29.3 pg 27.0-32.0 [facility] Nucleated RBC/100 WBC (Bld) [Ratio] 0 % 0-5 [facility] MCHC Auto (RBC) [Mass/Vol]Or dered By: Renard Burgos on 04-10-2023 MCHC (RBC) [Mass/Vol] 32.1 g/dL 32-36 [facility] Platelets bldOrdered By: Lyubov Burgos on 04-10-2023 Platelets (Bld) [#/Vol] 216 10*3/uL 150-450 [facility] Absolute lymphocyte countOrd ered By: Renard Burgos on 04-03-2023 Lymphocytes Auto (Unsp spec) [#/Vol] 1.91 10*3/uL 0.83-4.51 [facility] Basophil percentageOrdered B y: Renard Burgos on 04-03-2023 Basophils/100 WBC (Bld) 0.5 % 0-1 [facility] Eosinophils/100 WBC (Bld) 0.5 % 0-5 [facility] Neutrophils (Bld) [#/Vol] 5.0 10*3/uL 2.0-7.7 [facility] Neutrophils/100 WBC (Bld) 66.5 % 47-70 [facility] WBC (Bld) [#/Vol] 7.6 10*3/uL 4.4-11.0 [facility] Blood erythrocytes count (nu mber/volume)Ordered By: Renard Burgos on 04-03-2023 RBC (Bld) [#/Vol] 4.62 10*6/uL 4.6-6.2 [facility] Blood hemoglobin measurement (mass/volume)Ordered By: Renard Burgos on 04-03-2023 Hemoglobin (Bld) [Mass/Vol] 13.7 g/dL 13.0-16.5 [facility] Blood lymphocytes/100 leukoc ytesOrdered By: Renard Burgos on 04-03-2023 Lymphocytes/100 WBC (Bld) 25.2 % 19-41 [facility] Blood monocytes/100 leukocyt esOrdered By: Renard Burgos on 04-03-2023 Monocytes/100 WBC (Bld) 6.9 % 0-10 [facility] Blood platelet mean volumeOr dered By: Renard Burgos on 04-03-2023 Platelet mean volume (Bld) [Entitic vol] 10.8 fL 6.2-12.0 [facility] Determination of erythrocyte mean corpuscular volume (MCV)Ordered By: Renard Burgos on 04-03-2023 MCV (RBC) [Entitic vol] 91.6 fL 80-94 [facility] Hematocrit Auto (Bld) [Volum e fraction]Ordered By: Renard Burgos on 04-03-2023 Hematocrit (Bld) [Volume fraction] 42.3 % 40-54 [facility] - Hematology and Cell countsOrdered By: Renard Burgos on 04-03-2023 Erythrocyte distribution width (RBC) [Entitic vol] 42.6 fL 35.1-43.9 [facility] Erythrocyte distribution width (RBC) [Ratio] 12.8 % 11.6-14.6 [facility] Immature granulocytes/100 WBC (Bld) 0.400 % 0.0-0.9 [facility] Comment on above: IG% - Immature Granu locytes (promyelocytes, myelocytes and metamyelocytes) > 1% indicates that a LEFT SHIFT is Present. MCH (RBC) [Entitic mass] 29.7 pg 27.0-32.0 [facility] Nucleated RBC/100 WBC (Bld) [Ratio] 0 % 0-5 [facility] MCHC Auto (RBC) [Mass/Vol]Or dered By: Renard Burgos on 04-03-2023 MCHC (RBC) [Mass/Vol] 32.4 g/dL 32-36 [facility] Platelets bldOrdered By: Lyubov Burgos on 04-03-2023 Platelets (Bld) [#/Vol] 216 10*3/uL 150-450 [facility] Absolute lymphocyte countOrd ered By: Renard Burgos on 03-27-2023 Lymphocytes Auto (Unsp spec) [#/Vol] 2.06 10*3/uL 0.83-4.51 [facility] Basophil percentageOrdered B y: Renard Burgos on 03-27-2023 Basophils/100 WBC (Bld) 0.4 % 0-1 [facility] Eosinophils/100 WBC (Bld) 0.2 % 0-5 [facility] Neutrophils (Bld) [#/Vol] 6.3 10*3/uL 2.0-7.7 [facility] Neutrophils/100 WBC (Bld) 68.8 % 47-70 [facility] WBC (Bld) [#/Vol] 9.1 10*3/uL 4.4-11.0 [facility] Blood erythrocytes count (nu mber/volume)Ordered By: Renard Burgos on 03-27-2023 RBC (Bld) [#/Vol] 4.51 10*6/uL 4.6-6.2 [facility] Blood hemoglobin measurement (mass/volume)Ordered By: Renard Burgos on 03-27-2023 Hemoglobin (Bld) [Mass/Vol] 13.2 g/dL 13.0-16.5 [facility] Blood lymphocytes/100 leukoc ytesOrdered By: Renard Burgos on 03-27-2023 Lymphocytes/100 WBC (Bld) 22.6 % 19-41 [facility] Blood monocytes/100 leukocyt esOrdered By: Renard Burgos on 03-27-2023 Monocytes/100 WBC (Bld) 7.3 % 0-10 [facility] Blood platelet mean volumeOr dered By: Renard Burgos on 03-27-2023 Platelet mean volume (Bld) [Entitic vol] 10.8 fL 6.2-12.0 [facility] Determination of erythrocyte mean corpuscular volume (MCV)Ordered By: Renard Burgos on 03-27-2023 MCV (RBC) [Entitic vol] 91.6 fL 80-94 [facility] Hematocrit Auto (Bld) [Volum e fraction]Ordered By: Renard Burgos on 03-27-2023 Hematocrit (Bld) [Volume fraction] 41.3 % 40-54 [facility] - Hematology and Cell countsOrdered By: Renard Burgos on 03-27-2023 Erythrocyte distribution width (RBC) [Entitic vol] 42.9 fL 35.1-43.9 [facility] Erythrocyte distribution width (RBC) [Ratio] 12.9 % 11.6-14.6 [facility] Immature granulocytes/100 WBC (Bld) 0.700 % 0.0-0.9 [facility] Comment on above: IG% - Immature Granu locytes (promyelocytes, myelocytes and metamyelocytes) > 1% indicates that a LEFT SHIFT is Present. MCH (RBC) [Entitic mass] 29.3 pg 27.0-32.0 [facility] Nucleated RBC/100 WBC (Bld) [Ratio] 0 % 0-5 [facility] MCHC Auto (RBC) [Mass/Vol]Or dered By: Renard Burgos on 03-27-2023 MCHC (RBC) [Mass/Vol] 32.0 g/dL 32-36 [facility] Platelets bldOrdered By: Lyubov Burgos on 03-27-2023 Platelets (Bld) [#/Vol] 205 10*3/uL 150-450 [facility] Absolute lymphocyte countOrd ered By: Renard Burgos on 03-20-2023 Lymphocytes Auto (Unsp spec) [#/Vol] 1.89 10*3/uL 0.83-4.51 [facility] Basophil percentageOrdered B y: Renard Burgos on 03-20-2023 Basophils/100 WBC (Bld) 0.5 % 0-1 [facility] Chloride [Moles/Vol] 107 mmol/L 98-107 [facility] Eosinophils/100 WBC (Bld) 0.4 % 0-5 [facility] Glucose [Mass/Vol] 124 mg/dL 74-106 [facility] Comment on above: Fasting Glucose resu lt from 100 to 125 mg/dL suggests IMPAIRED HOMEOSTASIS per A.D.A. criteria. Neutrophils (Bld) [#/Vol] 4.8 10*3/uL 2.0-7.7 [facility] Neutrophils/100 WBC (Bld) 64.9 % 47-70 [facility] Potassium [Moles/Vol] 3.6 mmol/L 3.5-5.1 [facility] Sodium [Moles/Vol] 142 mmol/L 136-145 [facility] WBC (Bld) [#/Vol] 7.4 10*3/uL 4.4-11.0 [facility] Blood erythrocytes count (nu mber/volume)Ordered By: Renard Burgos on 03-20-2023 RBC (Bld) [#/Vol] 4.63 10*6/uL 4.6-6.2 [facility] Blood hemoglobin measurement (mass/volume)Ordered By: Renard Burgos on 03-20-2023 Hemoglobin (Bld) [Mass/Vol] 13.7 g/dL 13.0-16.5 [facility] Blood lymphocytes/100 leukoc ytesOrdered By: Renard Burgos on 03-20-2023 Lymphocytes/100 WBC (Bld) 25.7 % 19-41 [facility] Blood monocytes/100 leukocyt esOrdered By: Renard Burgos on 03-20-2023 Monocytes/100 WBC (Bld) 8.2 % 0-10 [facility] Blood platelet mean volumeOr dered By: Renard Burgos on 03-20-2023 Platelet mean volume (Bld) [Entitic vol] 10.7 fL 6.2-12.0 [facility] Determination of erythrocyte mean corpuscular volume (MCV)Ordered By: Renard Burgos on 03-20-2023 MCV (RBC) [Entitic vol] 90.9 fL 80-94 [facility] Hematocrit Auto (Bld) [Volum e fraction]Ordered By: Renard Burgos on 03-20-2023 Hematocrit (Bld) [Volume fraction] 42.1 % 40-54 [facility] - Chemistry and C hemistry - challengeOrdered By: Renard Burgos on 03-20-2023 CO2 [Moles/Vol] 29.0 mmol/L 21.0-32.0 [facility] Urea nitrogen/Creatinine [Mass ratio] 30.7 mg/mg 10-20 [facility] - Hematology and Cell countsOrdered By: Renard Burgos on 03-20-2023 Erythrocyte distribution width (RBC) [Entitic vol] 43.0 fL 35.1-43.9 [facility] Erythrocyte distribution width (RBC) [Ratio] 12.9 % 11.6-14.6 [facility] Immature granulocytes/100 WBC (Bld) 0.300 % 0.0-0.9 [facility] Comment on above: IG% - Immature Granu locytes (promyelocytes, myelocytes and metamyelocytes) > 1% indicates that a LEFT SHIFT is Present. MCH (RBC) [Entitic mass] 29.6 pg 27.0-32.0 [facility] Nucleated RBC/100 WBC (Bld) [Ratio] 0 % 0-5 [facility] MCHC Auto (RBC) [Mass/Vol]Or dered By: Renard Burgos on 03-20-2023 MCHC (RBC) [Mass/Vol] 32.5 g/dL 32-36 [facility] No Panel InformationOrdered By: Renard Burgos on 03-20-2023 Estimated GFR (MDRD) Amer 178 mL/min >60 [facility] Comment on above: GFR Calc Estimated GFR (MDRD) Non-Af Amer 147 mL/min >60 [facility] Comment on above: Non- GFR Calc Platelets bldOrdered By: Pet lizy Burgos on 03-20-2023 Platelets (Bld) [#/Vol] 208 10*3/uL 150-450 [facility] Serum or plasma calcium gordy urement (mass/volume)Ordered By: Renard Burgos on 03-20-2023 Calcium [Mass/Vol] 8.1 mg/dL 8.5-10.1 [facility] Serum or plasma creatinine m easurement (mass/volume)Ordered By: Renard Burgos on 03-20-2023 Creatinine [Mass/Vol] 0.59 mg/dL 0.70-1.30 [facility] Comment on above: The validity of the calculated GFR & GFRAA in patients over 70 years has not been determined. Clinical correlation is essential. Serum or plasma urea nitroge n measurement (mass/volume)Ordered By: Renard Burgos on 03-20-2023 Urea nitrogen [Mass/Vol] 18 mg/dL 7-18 [facility] Thin prep Papanicolaou smear with manual screeningOrdered By: Renard Burgos on 03-20-2023 Thin prep Papanicolaou smear with manual screening 6 5-15 [facility] Erythrocyte sedimentation ra teOrdered By: Renard Burgos on 03-16-2023 ESR (Bld) [Velocity] 3 mm/h 0-20 [facility] Absolute lymphocyte countOrd ered By: Renard Burgos on 03-13-2023 Lymphocytes Auto (Unsp spec) [#/Vol] 2.36 10*3/uL 0.83-4.51 [facility] Basophil percentageOrdered B y: Renard Burgos on 03-13-2023 Basophils/100 WBC (Bld) 0.5 % 0-1 [facility] Eosinophils/100 WBC (Bld) 0.5 % 0-5 [facility] Neutrophils (Bld) [#/Vol] 5.2 10*3/uL 2.0-7.7 [facility] Neutrophils/100 WBC (Bld) 61.3 % 47-70 [facility] WBC (Bld) [#/Vol] 8.5 10*3/uL 4.4-11.0 [facility] Blood erythrocytes count (nu mber/volume)Ordered By: Renard Burgos on 03-13-2023 RBC (Bld) [#/Vol] 4.55 10*6/uL 4.6-6.2 [facility] Blood hemoglobin measurement (mass/volume)Ordered By: Renard Burgos on 03-13-2023 Hemoglobin (Bld) [Mass/Vol] 13.4 g/dL 13.0-16.5 [facility] Blood lymphocytes/100 leukoc ytesOrdered By: Renard Burgos on 03-13-2023 Lymphocytes/100 WBC (Bld) 27.7 % 19-41 [facility] Blood monocytes/100 leukocyt esOrdered By: Renard Burgos on 03-13-2023 Monocytes/100 WBC (Bld) 9.5 % 0-10 [facility] Blood platelet mean volumeOr dered By: Renard Burgos on 03-13-2023 Platelet mean volume (Bld) [Entitic vol] 10.6 fL 6.2-12.0 [facility] Determination of erythrocyte mean corpuscular volume (MCV)Ordered By: Renard Burgos on 03-13-2023 MCV (RBC) [Entitic vol] 93.4 fL 80-94 [facility] Hematocrit Auto (Bld) [Volum e fraction]Ordered By: Renard Burgos on 03-13-2023 Hematocrit (Bld) [Volume fraction] 42.5 % 40-54 [facility] - Hematology and Cell countsOrdered By: Renard Burgos on 03-13-2023 Erythrocyte distribution width (RBC) [Entitic vol] 44.1 fL 35.1-43.9 [facility] Erythrocyte distribution width (RBC) [Ratio] 13.0 % 11.6-14.6 [facility] Immature granulocytes/100 WBC (Bld) 0.500 % 0.0-0.9 [facility] Comment on above: IG% - Immature Granu locytes (promyelocytes, myelocytes and metamyelocytes) > 1% indicates that a LEFT SHIFT is Present. MCH (RBC) [Entitic mass] 29.5 pg 27.0-32.0 [facility] Nucleated RBC/100 WBC (Bld) [Ratio] 0 % 0-5 [facility] MCHC Auto (RBC) [Mass/Vol]Or dered By: Renard Burgos on 03-13-2023 MCHC (RBC) [Mass/Vol] 31.5 g/dL 32-36 [facility] Platelets bldOrdered By: Lyubov Hensleyrustam on 03-13-2023 Platelets (Bld) [#/Vol] 200 10*3/uL 150-450 [facility] Absolute lymphocyte countOrd ered By: Renard Hensleyrustam on 03-06-2023 Lymphocytes Auto (Unsp spec) [#/Vol] 1.80 10*3/uL 0.83-4.51 [facility] Basophil percentageOrdered B y: Renard Loretta on 03-06-2023 Basophils/100 WBC (Bld) 0.5 % 0-1 [facility] Bilirubin [Mass/Vol] 0.40 mg/dL 0.20-1.00 [facility] Comment on above: For patients on eltr ombopag therapy, use of Dimension Nora TBIL is not recommended. Chloride [Moles/Vol] 107 mmol/L 98-107 [facility] Cholesterol [Mass/Vol] 118 mg/dL <200 [facility] Comment on above: <200 mg/dL Desirable 200-240 mg/dL Borderline >240 mg/dL High Risk Eosinophils/100 WBC (Bld) 0.5 % 0-5 [facility] [facility] Glucose [Mass/Vol] 107 mg/dL 74-106 [facility] Comment on above: Fasting Glucose resu lt from 100 to 125 mg/dL suggests IMPAIRED HOMEOSTASIS per A.D.A. criteria. Neutrophils (Bld) [#/Vol] 5.5 10*3/uL 2.0-7.7 [facility] Neutrophils/100 WBC (Bld) 68.0 % 47-70 [facility] Potassium [Moles/Vol] 3.8 mmol/L 3.5-5.1 [facility] Protein [Mass/Vol] 6.3 g/dL 6.4-8.2 [facility] Sodium [Moles/Vol] 141 mmol/L 136-145 [facility] Triglyceride [Mass/Vol] 185 mg/dL <199 [facility] Comment on above: The drugs N-Acetylcy steine and Metamizole may falsely depress this assay.Serum Triglycerides Reference Interval Normal <150 mg/dL Borderline high 150 - 199 mg/dL High 200 - 499 mg/dL Very High > or = 500 mg/dL WBC (Bld) [#/Vol] 8.1 10*3/uL 4.4-11.0 [facility] Blood erythrocytes count (nu mber/volume)Ordered By: Renard Burgos on 03-06-2023 RBC (Bld) [#/Vol] 4.69 10*6/uL 4.6-6.2 [facility] Blood hemoglobin measurement (mass/volume)Ordered By: Renard Burgos on 03-06-2023 Hemoglobin (Bld) [Mass/Vol] 14.0 g/dL 13.0-16.5 [facility] Blood lymphocytes/100 leukoc ytesOrdered By: Renard Burgos on 03-06-2023 Lymphocytes/100 WBC (Bld) 22.3 % 19-41 [facility] Blood monocytes/100 leukocyt esOrdered By: Renard Burgos on 03-06-2023 Monocytes/100 WBC (Bld) 8.2 % 0-10 [facility] Blood platelet mean volumeOr dered By: Renard Burgos on 03-06-2023 Platelet mean volume (Bld) [Entitic vol] 10.9 fL 6.2-12.0 [facility] Determination of erythrocyte mean corpuscular volume (MCV)Ordered By: Renard Burgos on 03-06-2023 MCV (RBC) [Entitic vol] 91.9 fL 80-94 [facility] Hematocrit Auto (Bld) [Volum e fraction]Ordered By: Renard Burgos on 03-06-2023 Hematocrit (Bld) [Volume fraction] 43.1 % 40-54 [facility] Laboratory - Chemistry and C hemistry - challengeOrdered By: Renard Burgos on 03-06-2023 ALP [Catalytic activity/Vol] 120 U/L 45-117 [facility] ALT [Catalytic activity/Vol] 20 U/L 16-61 [facility] CO2 [Moles/Vol] 30.0 mmol/L 21.0-32.0 [facility] Globulin (S) [Mass/Vol] 3.3 g/dL 2.2-4.2 [facility] Urea nitrogen/Creatinine [Mass ratio] 27.1 mg/mg 10-20 [facility] - Hematology and Cell countsOrdered By: Renard Burgos on 03-06-2023 Erythrocyte distribution width (RBC) [Entitic vol] 42.5 fL 35.1-43.9 [facility] Erythrocyte distribution width (RBC) [Ratio] 12.9 % 11.6-14.6 [facility] Immature granulocytes/100 WBC (Bld) 0.500 % 0.0-0.9 [facility] Comment on above: IG% - Immature Granu locytes (promyelocytes, myelocytes and metamyelocytes) > 1% indicates that a LEFT SHIFT is Present. MCH (RBC) [Entitic mass] 29.9 pg 27.0-32.0 [facility] Nucleated RBC/100 WBC (Bld) [Ratio] 0 % 0-5 [facility] MCHC Auto (RBC) [Mass/Vol]Or dered By: Renard Burgos on 03-06-2023 MCHC (RBC) [Mass/Vol] 32.5 g/dL 32-36 [facility] No Panel InformationOrdered By: Renard Burgos on 03-06-2023 Estimated GFR (MDRD) Amer 165 mL/min >60 [facility] Comment on above: GFR Calc Estimated GFR (MDRD) Non-Af Amer 136 mL/min >60 [facility] Comment on above: Non- GFR Calc Platelets bldOrdered By: Lyubov Burgos on 03-06-2023 Platelets (Bld) [#/Vol] 232 10*3/uL 150-450 [facility] Serum or plasma albumin gordy urement (mass/volume)Ordered By: Renard Burgos on 03-06-2023 Albumin [Mass/Vol] 3.0 g/dL 3.2-5.0 [facility] Serum or plasma albumin/glob ulin mass ratioOrdered By: Renard Burgos on 03-06-2023 Albumin/Globulin [Mass ratio] 0.9 {ratio} 0.9-2.4 [facility] Serum or plasma calcium gordy urement (mass/volume)Ordered By: Renard Burgos on 03-06-2023 Calcium [Mass/Vol] 8.2 mg/dL 8.5-10.1 [facility] Serum or plasma cholesterol in HDL measurement (mass/volume)Ordered By: Renard Burgos on 03-06-2023 Cholesterol in HDL [Mass/Vol] 25 mg/dL >40 [facility] Comment on above: The drugs N-Acetylcy steine and Metamizole may falsely depress this assay. Reference Range HDL <40 mg/dL Low HDL Cholesterol HDL >or= 60 mg/dL High HDL Cholesterol Serum or plasma cholesterol in VLDL measurement (mass/volume)Ordered By: Renard Burgos on 03-06-2023 Cholesterol in VLDL [Mass/Vol] 37 mg/dL 5-40 [facility] Serum or plasma creatinine m easurement (mass/volume)Ordered By: Renard Burgos on 03-06-2023 Creatinine [Mass/Vol] 0.63 mg/dL 0.70-1.30 [facility] Comment on above: The validity of the calculated GFR & GFRAA in patients over 70 years has not been determined. Clinical correlation is essential. Serum or plasma low density lipoprotein (LDL) cholesterol measurement (mass/volume)Ordered By: Renard Burgos on 03-06-2023 Cholesterol in LDL [Mass/Vol] 56 mg/dL 0-130 [facility] Serum or plasma urea nitroge n measurement (mass/volume)Ordered By: Renard Burgos on 03-06-2023 Urea nitrogen [Mass/Vol] 17 mg/dL 7-18 [facility] Thin prep Papanicolaou smear with manual screeningOrdered By: Renard Burgos on 03-06-2023 Thin prep Papanicolaou smear with manual screening 10 U/L 15-37 [facility] Thin prep Papanicolaou smear with manual screening 4 5-15 [facility] Absolute lymphocyte countOrd ered By: Renard Burgos on 02-27-2023 Lymphocytes Auto (Unsp spec) [#/Vol] 2.13 10*3/uL 0.83-4.51 [facility] Basophil percentageOrdered B y: Renard Burgos on 02-27-2023 Basophils/100 WBC (Bld) 0.6 % 0-1 [facility] Eosinophils/100 WBC (Bld) 0.6 % 0-5 [facility] Neutrophils (Bld) [#/Vol] 5.1 10*3/uL 2.0-7.7 [facility] Neutrophils/100 WBC (Bld) 63.3 % 47-70 [facility] WBC (Bld) [#/Vol] 8.1 10*3/uL 4.4-11.0 [facility] Blood erythrocytes count (nu mber/volume)Ordered By: Renard Burgos on 02-27-2023 RBC (Bld) [#/Vol] 4.54 10*6/uL 4.6-6.2 [facility] Blood hemoglobin measurement (mass/volume)Ordered By: Renard Burgos on 02-27-2023 Hemoglobin (Bld) [Mass/Vol] 13.7 g/dL 13.0-16.5 [facility] Blood lymphocytes/100 leukoc ytesOrdered By: Renard Burgos on 02-27-2023 Lymphocytes/100 WBC (Bld) 26.4 % 19-41 [facility] Blood monocytes/100 leukocyt esOrdered By: Renard Burgos on 02-27-2023 Monocytes/100 WBC (Bld) 8.7 % 0-10 [facility] Blood platelet mean volumeOr dered By: Renard Burgos on 02-27-2023 Platelet mean volume (Bld) [Entitic vol] 10.8 fL 6.2-12.0 [facility] Determination of erythrocyte mean corpuscular volume (MCV)Ordered By: Renard Burgos on 02-27-2023 MCV (RBC) [Entitic vol] 89.9 fL 80-94 [facility] Hematocrit Auto (Bld) [Volum e fraction]Ordered By: Renard Burgos on 02-27-2023 Hematocrit (Bld) [Volume fraction] 40.8 % 40-54 [facility] - Hematology and Cell countsOrdered By: Renard Burgos on 02-27-2023 Erythrocyte distribution width (RBC) [Entitic vol] 41.0 fL 35.1-43.9 [facility] Erythrocyte distribution width (RBC) [Ratio] 12.5 % 11.6-14.6 [facility] Immature granulocytes/100 WBC (Bld) 0.400 % 0.0-0.9 [facility] Comment on above: IG% - Immature Granu locytes (promyelocytes, myelocytes and metamyelocytes) > 1% indicates that a LEFT SHIFT is Present. MCH (RBC) [Entitic mass] 30.2 pg 27.0-32.0 [facility] Nucleated RBC/100 WBC (Bld) [Ratio] 0 % 0-5 [facility] MCHC Auto (RBC) [Mass/Vol]Or dered By: Renard Burgos on 02-27-2023 MCHC (RBC) [Mass/Vol] 33.6 g/dL 32-36 [facility] Platelets bldOrdered By: Lyubov Burgos on 02-27-2023 Platelets (Bld) [#/Vol] 182 10*3/uL 150-450 [facility] Absolute lymphocyte countOrd ered By: Renard Burgos on 02-20-2023 Lymphocytes Auto (Unsp spec) [#/Vol] 2.23 10*3/uL 0.83-4.51 [facility] Basophil percentageOrdered B y: Renard Burgos on 02-20-2023 Basophils/100 WBC (Bld) 0.3 % 0-1 [facility] Eosinophils/100 WBC (Bld) 0.7 % 0-5 [facility] Neutrophils (Bld) [#/Vol] 5.9 10*3/uL 2.0-7.7 [facility] Neutrophils/100 WBC (Bld) 65.7 % 47-70 [facility] WBC (Bld) [#/Vol] 9.0 10*3/uL 4.4-11.0 [facility] Blood erythrocytes count (nu mber/volume)Ordered By: Renard Burgos on 02-20-2023 RBC (Bld) [#/Vol] 4.46 10*6/uL 4.6-6.2 [facility] Blood hemoglobin measurement (mass/volume)Ordered By: Renard Burgos on 02-20-2023 Hemoglobin (Bld) [Mass/Vol] 13.3 g/dL 13.0-16.5 [facility] Blood lymphocytes/100 leukoc ytesOrdered By: Renard Burgos on 02-20-2023 Lymphocytes/100 WBC (Bld) 24.7 % 19-41 [facility] Blood monocytes/100 leukocyt esOrdered By: Renard Burgos on 02-20-2023 Monocytes/100 WBC (Bld) 8.0 % 0-10 [facility] Blood platelet mean volumeOr dered By: Renard Burgos on 02-20-2023 Platelet mean volume (Bld) [Entitic vol] 10.7 fL 6.2-12.0 [facility] Determination of erythrocyte mean corpuscular volume (MCV)Ordered By: Renard Burgos on 02-20-2023 MCV (RBC) [Entitic vol] 90.6 fL 80-94 [facility] Hematocrit Auto (Bld) [Volum e fraction]Ordered By: Renard Burgos on 02-20-2023 Hematocrit (Bld) [Volume fraction] 40.4 % 40-54 [facility] - Hematology and Cell countsOrdered By: Renard Burgos on 02-20-2023 Erythrocyte distribution width (RBC) [Entitic vol] 41.9 fL 35.1-43.9 [facility] Erythrocyte distribution width (RBC) [Ratio] 12.8 % 11.6-14.6 [facility] Immature granulocytes/100 WBC (Bld) 0.600 % 0.0-0.9 [facility] Comment on above: IG% - Immature Granu locytes (promyelocytes, myelocytes and metamyelocytes) > 1% indicates that a LEFT SHIFT is Present. MCH (RBC) [Entitic mass] 29.8 pg 27.0-32.0 [facility] Nucleated RBC/100 WBC (Bld) [Ratio] 0 % 0-5 [facility] MCHC Auto (RBC) [Mass/Vol]Or dered By: Renard Burgos on 02-20-2023 MCHC (RBC) [Mass/Vol] 32.9 g/dL 32-36 [facility] Platelets bldOrdered By: Lyubov Burgos on 02-20-2023 Platelets (Bld) [#/Vol] 220 10*3/uL 150-450 [facility] Absolute lymphocyte countOrd ered By: Renard Burgos on 02-13-2023 Lymphocytes Auto (Unsp spec) [#/Vol] 2.01 10*3/uL 0.83-4.51 [facility] Basophil percentageOrdered B y: Renard Burgos on 02-13-2023 Basophils/100 WBC (Bld) 0.7 % 0-1 [facility] Eosinophils/100 WBC (Bld) 0.5 % 0-5 [facility] Neutrophils (Bld) [#/Vol] 4.7 10*3/uL 2.0-7.7 [facility] Neutrophils/100 WBC (Bld) 63.3 % 47-70 [facility] WBC (Bld) [#/Vol] 7.4 10*3/uL 4.4-11.0 [facility] Blood erythrocytes count (nu mber/volume)Ordered By: Renard Burgos on 02-13-2023 RBC (Bld) [#/Vol] 4.46 10*6/uL 4.6-6.2 [facility] Blood hemoglobin measurement (mass/volume)Ordered By: Renard Burgos on 02-13-2023 Hemoglobin (Bld) [Mass/Vol] 13.6 g/dL 13.0-16.5 [facility] Blood lymphocytes/100 leukoc ytesOrdered By: Renard Burgos on 02-13-2023 Lymphocytes/100 WBC (Bld) 27.0 % 19-41 [facility] Blood monocytes/100 leukocyt esOrdered By: Renard Burgos on 02-13-2023 Monocytes/100 WBC (Bld) 8.1 % 0-10 [facility] Blood platelet mean volumeOr dered By: Renard Burgos on 02-13-2023 Platelet mean volume (Bld) [Entitic vol] 10.7 fL 6.2-12.0 [facility] Determination of erythrocyte mean corpuscular volume (MCV)Ordered By: Renard Burgos on 02-13-2023 MCV (RBC) [Entitic vol] 92.6 fL 80-94 [facility] Hematocrit Auto (Bld) [Volum e fraction]Ordered By: Renard Burgos on 02-13-2023 Hematocrit (Bld) [Volume fraction] 41.3 % 40-54 [facility] - Hematology and Cell countsOrdered By: Renard Burgos on 02-13-2023 Erythrocyte distribution width (RBC) [Entitic vol] 42.7 fL 35.1-43.9 [facility] Erythrocyte distribution width (RBC) [Ratio] 12.6 % 11.6-14.6 [facility] Immature granulocytes/100 WBC (Bld) 0.400 % 0.0-0.9 [facility] Comment on above: IG% - Immature Granu locytes (promyelocytes, myelocytes and metamyelocytes) > 1% indicates that a LEFT SHIFT is Present. MCH (RBC) [Entitic mass] 30.5 pg 27.0-32.0 [facility] Nucleated RBC/100 WBC (Bld) [Ratio] 0 % 0-5 [facility] MCHC Auto (RBC) [Mass/Vol]Or dered By: Renard Burgos on 02-13-2023 MCHC (RBC) [Mass/Vol] 32.9 g/dL 32-36 [facility] Platelets bldOrdered By: Lyubov Burgos on 02-13-2023 Platelets (Bld) [#/Vol] 187 10*3/uL 150-450 [facility] Absolute lymphocyte countOrd ered By: Renard Burgos on 02-06-2023 Lymphocytes Auto (Unsp spec) [#/Vol] 2.28 10*3/uL 0.83-4.51 [facility] Basophil percentageOrdered B y: Renard Burgos on 02-06-2023 Basophils/100 WBC (Bld) 0.5 % 0-1 [facility] Eosinophils/100 WBC (Bld) 0.7 % 0-5 [facility] Neutrophils (Bld) [#/Vol] 5.5 10*3/uL 2.0-7.7 [facility] Neutrophils/100 WBC (Bld) 63.7 % 47-70 [facility] WBC (Bld) [#/Vol] 8.6 10*3/uL 4.4-11.0 [facility] Blood erythrocytes count (nu mber/volume)Ordered By: Renard Burgos on 02-06-2023 RBC (Bld) [#/Vol] 4.71 10*6/uL 4.6-6.2 [facility] Blood hemoglobin measurement (mass/volume)Ordered By: Renard Burgos on 02-06-2023 Hemoglobin (Bld) [Mass/Vol] 14.1 g/dL 13.0-16.5 [facility] Blood lymphocytes/100 leukoc ytesOrdered By: Renard Burgos on 02-06-2023 Lymphocytes/100 WBC (Bld) 26.4 % 19-41 [facility] Blood monocytes/100 leukocyt esOrdered By: Renard Burgos on 02-06-2023 Monocytes/100 WBC (Bld) 8.2 % 0-10 [facility] Blood platelet mean volumeOr dered By: Renard Burgos on 02-06-2023 Platelet mean volume (Bld) [Entitic vol] 11.0 fL 6.2-12.0 [facility] Determination of erythrocyte mean corpuscular volume (MCV)Ordered By: Renard Burgos on 02-06-2023 MCV (RBC) [Entitic vol] 94.5 fL 80-94 [facility] Hematocrit Auto (Bld) [Volum e fraction]Ordered By: Renard Burgos on 02-06-2023 Hematocrit (Bld) [Volume fraction] 44.5 % 40-54 [facility] - Hematology and Cell countsOrdered By: Renard Burgos on 02-06-2023 Erythrocyte distribution width (RBC) [Entitic vol] 43.5 fL 35.1-43.9 [facility] Erythrocyte distribution width (RBC) [Ratio] 12.7 % 11.6-14.6 [facility] Immature granulocytes/100 WBC (Bld) 0.500 % 0.0-0.9 [facility] Comment on above: IG% - Immature Granu locytes (promyelocytes, myelocytes and metamyelocytes) > 1% indicates that a LEFT SHIFT is Present. MCH (RBC) [Entitic mass] 29.9 pg 27.0-32.0 [facility] Nucleated RBC/100 WBC (Bld) [Ratio] 0 % 0-5 [facility] MCHC Auto (RBC) [Mass/Vol]Or dered By: Renard Burgos on 02-06-2023 MCHC (RBC) [Mass/Vol] 31.7 g/dL 32-36 [facility] Platelets bldOrdered By: Lyubov Burgos on 02-06-2023 Platelets (Bld) [#/Vol] 196 10*3/uL 150-450 [facility] Absolute lymphocyte countOrd ered By: Renard Burgos on 01-30-2023 Lymphocytes Auto (Unsp spec) [#/Vol] 1.91 10*3/uL 0.83-4.51 [facility] Basophil percentageOrdered B y: Renard Burgos on 01-30-2023 Basophils/100 WBC (Bld) 0.5 % 0-1 [facility] Eosinophils/100 WBC (Bld) 0.5 % 0-5 [facility] Neutrophils (Bld) [#/Vol] 6.0 10*3/uL 2.0-7.7 [facility] Neutrophils/100 WBC (Bld) 69.4 % 47-70 [facility] WBC (Bld) [#/Vol] 8.7 10*3/uL 4.4-11.0 [facility] Basophil percentage 0 SEEN /hpf 0-5 [facility] Bilirubin Test strip Ql (U)O rdered By: Renard Burgos on 01-30-2023 Bilirubin Ql (U) Negative Negative [facility] Blood erythrocytes count (nu mber/volume)Ordered By: Renard Burgos on 01-30-2023 RBC (Bld) [#/Vol] 4.50 10*6/uL 4.6-6.2 [facility] Blood hemoglobin measurement (mass/volume)Ordered By: Renard Burgos on 01-30-2023 Hemoglobin (Bld) [Mass/Vol] 13.5 g/dL 13.0-16.5 [facility] Blood lymphocytes/100 leukoc ytesOrdered By: Renard Burgos on 01-30-2023 Lymphocytes/100 WBC (Bld) 22.1 % 19-41 [facility] Blood monocytes/100 leukocyt esOrdered By: Renard Burgos on 01-30-2023 Monocytes/100 WBC (Bld) 7.2 % 0-10 [facility] Blood platelet mean volumeOr dered By: Renard Burgos on 01-30-2023 Platelet mean volume (Bld) [Entitic vol] 11.1 fL 6.2-12.0 [facility] Culture, urineOrdered By: Garrick Bhatt on 01-30-2023 Bacteria identified Cx Nom (U) Positive [facility] Determination of erythrocyte mean corpuscular volume (MCV)Ordered By: Renard Burgos on 01-30-2023 MCV (RBC) [Entitic vol] 91.3 fL 80-94 [facility] Hematocrit Auto (Bld) [Volum e fraction]Ordered By: Renard Burgos on 01-30-2023 Hematocrit (Bld) [Volume fraction] 41.1 % 40-54 [facility] Ketones Test strip Ql (U)Ord ered By: Renard Burgos on 01-30-2023 Ketones Ql (U) Negative Negative [facility] - Hematology and Cell countsOrdered By: Renard Burgos on 01-30-2023 Erythrocyte distribution width (RBC) [Entitic vol] 41.4 fL 35.1-43.9 [facility] Erythrocyte distribution width (RBC) [Ratio] 12.6 % 11.6-14.6 [facility] Immature granulocytes/100 WBC (Bld) 0.300 % 0.0-0.9 [facility] Comment on above: IG% - Immature Granu locytes (promyelocytes, myelocytes and metamyelocytes) > 1% indicates that a LEFT SHIFT is Present. MCH (RBC) [Entitic mass] 30.0 pg 27.0-32.0 [facility] Nucleated RBC/100 WBC (Bld) [Ratio] 0 % 0-5 [facility] MCHC Auto (RBC) [Mass/Vol]Or dered By: Renard Burgos on 01-30-2023 MCHC (RBC) [Mass/Vol] 32.8 g/dL 32-36 [facility] Mucus LM Ql (Urine sed)Order ed By: Renard Burgos on 01-30-2023 Mucus Ql (Urine sed) 0 SEEN /hpf [facility] Nitrite Test strip Ql (U)Ord ered By: Renard Burgos on 01-30-2023 Nitrite Ql (U) Negative Negative [facility] No Panel InformationOrdered By: Renard Burgos on 01-30-2023 Prostate Specific Antigen Screen 4.18 ng/mL 0.00-4.00 [facility] Comment on above: This test was perfor med using the TPSA assay method for theDimension chemistry system. Values obtained with differentassay methods cannot be used interchangably.When changing PSA assays in the course of monitoring apatient, additional sequential testing should be carriedout to confirm baseline values. Platelets bldOrdered By: Lyubov Burgos on 01-30-2023 Platelets (Bld) [#/Vol] 205 10*3/uL 150-450 [facility] Protein Test strip Ql (U)Ord ered By: Renard Burgos on 01-30-2023 Protein Ql (U) Negative Negative [facility] Squamous epithelial cells de tection in urine sediment by light microscopyOrdered By: Renard Burgos on 01-30-2023 Epithelial cells.squamous LM Ql (Urine sed) 0-5 SEEN /hpf 0-5 [facility] Urine blood detectionOrdered By: Renard Burgos on 01-30-2023 RBC Ql (U) Negative Negative [facility] RBC Ql (U) 0 SEEN /hpf 0-5 [facility] Urine clarityOrdered By: Lyubov Burgos on 01-30-2023 Clarity (U) Clear Clear [facility] Urine color determinationOrd ered By: Renard Burgos on 01-30-2023 Color (U) Yellow Yellow [facility] Urine glucose detectionOrder ed By: Renard Burgos on 01-30-2023 Glucose Ql (U) Normal mg/dl Normal [facility] Urine leukocyte esterase det ection by dipstickOrdered By: Rneard Burgos on 01-30-2023 Leukocyte esterase Test strip Ql (U) Negative Negative [facility] Urine pHOrdered By: Renard ocampo on 01-30-2023 pH (U) 8.0 [pH] 5.0 - 8.0 [facility] Urine sediment bacteria coun t by microscopy (number/high power field)Ordered By: Renard Burgos on 01-30-2023 Bacteria LM.HPF (Urine sed) [#/Area] 0 /[HPF] None Seen [facility] Urine specific gravity measu rementOrdered By: Renard Burgos on 01-30-2023 Specific gravity (U) [Rel density] 1.010 1.002-1.030 [facility] Urobilinogen Auto test strip Ql (U)Ordered By: Renard Burgos on 01-30-2023 Urobilinogen Ql (U) Normal mg/dl Normal [facility] Absolute lymphocyte countOrd ered By: Renard Burgos on 01-23-2023 Lymphocytes Auto (Unsp spec) [#/Vol] 2.32 10*3/uL 0.83-4.51 [facility] Basophil percentageOrdered B y: Renard Burgos on 01-23-2023 Basophils/100 WBC (Bld) 0.6 % 0-1 [facility] Eosinophils/100 WBC (Bld) 0.4 % 0-5 [facility] Neutrophils (Bld) [#/Vol] 5.3 10*3/uL 2.0-7.7 [facility] Neutrophils/100 WBC (Bld) 62.7 % 47-70 [facility] WBC (Bld) [#/Vol] 8.4 10*3/uL 4.4-11.0 [facility] Blood erythrocytes count (nu mber/volume)Ordered By: Renard Burgos on 01-23-2023 RBC (Bld) [#/Vol] 4.49 10*6/uL 4.6-6.2 [facility] Blood hemoglobin measurement (mass/volume)Ordered By: Renard Burgos on 01-23-2023 Hemoglobin (Bld) [Mass/Vol] 13.6 g/dL 13.0-16.5 [facility] Blood lymphocytes/100 leukoc ytesOrdered By: Renard Burgos on 01-23-2023 Lymphocytes/100 WBC (Bld) 27.5 % 19-41 [facility] Blood monocytes/100 leukocyt esOrdered By: Renard Burgos on 01-23-2023 Monocytes/100 WBC (Bld) 8.2 % 0-10 [facility] Blood platelet mean volumeOr dered By: Renard Burgos on 01-23-2023 Platelet mean volume (Bld) [Entitic vol] 10.9 fL 6.2-12.0 [facility] Determination of erythrocyte mean corpuscular volume (MCV)Ordered By: Renard Burgos on 01-23-2023 MCV (RBC) [Entitic vol] 93.1 fL 80-94 [facility] Hematocrit Auto (Bld) [Volum e fraction]Ordered By: Renard Burgos on 01-23-2023 Hematocrit (Bld) [Volume fraction] 41.8 % 40-54 [facility] - Hematology and Cell countsOrdered By: Renard Burgos on 01-23-2023 Erythrocyte distribution width (RBC) [Entitic vol] 42.7 fL 35.1-43.9 [facility] Erythrocyte distribution width (RBC) [Ratio] 12.6 % 11.6-14.6 [facility] Immature granulocytes/100 WBC (Bld) 0.600 % 0.0-0.9 [facility] Comment on above: IG% - Immature Granu locytes (promyelocytes, myelocytes and metamyelocytes) > 1% indicates that a LEFT SHIFT is Present. MCH (RBC) [Entitic mass] 30.3 pg 27.0-32.0 [facility] Nucleated RBC/100 WBC (Bld) [Ratio] 0 % 0-5 [facility] MCHC Auto (RBC) [Mass/Vol]Or dered By: Renard Burgos on 01-23-2023 MCHC (RBC) [Mass/Vol] 32.5 g/dL 32-36 [facility] Platelets bldOrdered By: Lyubov Burgos on 01-23-2023 Platelets (Bld) [#/Vol] 220 10*3/uL 150-450 [facility] Absolute lymphocyte countOrd ered By: Renard Burgos on 01-16-2023 Lymphocytes Auto (Unsp spec) [#/Vol] 1.80 10*3/uL 0.83-4.51 [facility] Basophil percentageOrdered B y: Renard Burgos on 01-16-2023 Basophils/100 WBC (Bld) 0.4 % 0-1 [facility] Eosinophils/100 WBC (Bld) 0.4 % 0-5 [facility] Neutrophils (Bld) [#/Vol] 7.2 10*3/uL 2.0-7.7 [facility] Neutrophils/100 WBC (Bld) 73.5 % 47-70 [facility] WBC (Bld) [#/Vol] 9.8 10*3/uL 4.4-11.0 [facility] Blood erythrocytes count (nu mber/volume)Ordered By: Renard Burgos on 01-16-2023 RBC (Bld) [#/Vol] 4.77 10*6/uL 4.6-6.2 [facility] Blood hemoglobin measurement (mass/volume)Ordered By: Renard Burgos on 01-16-2023 Hemoglobin (Bld) [Mass/Vol] 14.1 g/dL 13.0-16.5 [facility] Blood lymphocytes/100 leukoc ytesOrdered By: Renard Burgos on 01-16-2023 Lymphocytes/100 WBC (Bld) 18.4 % 19-41 [facility] Blood monocytes/100 leukocyt esOrdered By: Renard Burgos on 01-16-2023 Monocytes/100 WBC (Bld) 6.9 % 0-10 [facility] Blood platelet mean volumeOr dered By: Renard Burgos on 01-16-2023 Platelet mean volume (Bld) [Entitic vol] 10.6 fL 6.2-12.0 [facility] Determination of erythrocyte mean corpuscular volume (MCV)Ordered By: Renard Burgos on 01-16-2023 MCV (RBC) [Entitic vol] 92.5 fL 80-94 [facility] Hematocrit Auto (Bld) [Volum e fraction]Ordered By: Renard Burgos on 01-16-2023 Hematocrit (Bld) [Volume fraction] 44.1 % 40-54 [facility] - Hematology and Cell countsOrdered By: Renard Burgos on 01-16-2023 Erythrocyte distribution width (RBC) [Entitic vol] 41.8 fL 35.1-43.9 [facility] Erythrocyte distribution width (RBC) [Ratio] 12.4 % 11.6-14.6 [facility] Immature granulocytes/100 WBC (Bld) 0.400 % 0.0-0.9 [facility] Comment on above: IG% - Immature Granu locytes (promyelocytes, myelocytes and metamyelocytes) > 1% indicates that a LEFT SHIFT is Present. MCH (RBC) [Entitic mass] 29.6 pg 27.0-32.0 [facility] Nucleated RBC/100 WBC (Bld) [Ratio] 0 % 0-5 [facility] MCHC Auto (RBC) [Mass/Vol]Or dered By: Renard Burgos on 01-16-2023 MCHC (RBC) [Mass/Vol] 32.0 g/dL 32-36 [facility] Platelets bldOrdered By: Lyubov Burgos on 01-16-2023 Platelets (Bld) [#/Vol] 221 10*3/uL 150-450 [facility] Absolute lymphocyte countOrd ered By: Renard Burgos on 01-09-2023 Lymphocytes Auto (Unsp spec) [#/Vol] 2.41 10*3/uL 0.83-4.51 [facility] Basophil percentageOrdered B y: Renard Burgos on 01-09-2023 Basophils/100 WBC (Bld) 0.7 % 0-1 [facility] Eosinophils/100 WBC (Bld) 0.8 % 0-5 [facility] Neutrophils (Bld) [#/Vol] 5.4 10*3/uL 2.0-7.7 [facility] Neutrophils/100 WBC (Bld) 60.5 % 47-70 [facility] WBC (Bld) [#/Vol] 8.9 10*3/uL 4.4-11.0 [facility] Blood erythrocytes count (nu mber/volume)Ordered By: Renard Burgos on 01-09-2023 RBC (Bld) [#/Vol] 4.56 10*6/uL 4.6-6.2 [facility] Blood hemoglobin measurement (mass/volume)Ordered By: Renard Burgos on 01-09-2023 Hemoglobin (Bld) [Mass/Vol] 13.8 g/dL 13.0-16.5 [facility] Blood lymphocytes/100 leukoc ytesOrdered By: Renard Burgos on 01-09-2023 Lymphocytes/100 WBC (Bld) 27.0 % 19-41 [facility] Blood monocytes/100 leukocyt esOrdered By: Renard Burgos on 01-09-2023 Monocytes/100 WBC (Bld) 10.7 % 0-10 [facility] Blood platelet mean volumeOr dered By: Renard Burgos on 01-09-2023 Platelet mean volume (Bld) [Entitic vol] 10.8 fL 6.2-12.0 [facility] Determination of erythrocyte mean corpuscular volume (MCV)Ordered By: Renard Burgos on 01-09-2023 MCV (RBC) [Entitic vol] 92.5 fL 80-94 [facility] Hematocrit Auto (Bld) [Volum e fraction]Ordered By: Renard Burgos on 01-09-2023 Hematocrit (Bld) [Volume fraction] 42.2 % 40-54 [facility] - Hematology and Cell countsOrdered By: Renard Burgos on 01-09-2023 Erythrocyte distribution width (RBC) [Entitic vol] 42.7 fL 35.1-43.9 [facility] Erythrocyte distribution width (RBC) [Ratio] 12.5 % 11.6-14.6 [facility] Immature granulocytes/100 WBC (Bld) 0.300 % 0.0-0.9 [facility] Comment on above: IG% - Immature Granu locytes (promyelocytes, myelocytes and metamyelocytes) > 1% indicates that a LEFT SHIFT is Present. MCH (RBC) [Entitic mass] 30.3 pg 27.0-32.0 [facility] Nucleated RBC/100 WBC (Bld) [Ratio] 0 % 0-5 [facility] MCHC Auto (RBC) [Mass/Vol]Or dered By: Renard Burgos on 01-09-2023 MCHC (RBC) [Mass/Vol] 32.7 g/dL 32-36 [facility] Platelets bldOrdered By: Lyubov Burgos on 01-09-2023 Platelets (Bld) [#/Vol] 209 10*3/uL 150-450 [facility] Absolute lymphocyte countOrd ered By: Renard Burgos on 01-03-2023 Lymphocytes Auto (Unsp spec) [#/Vol] 2.18 10*3/uL 0.83-4.51 [facility] Basophil percentageOrdered B y: Renrad Burgos on 01-03-2023 Basophils/100 WBC (Bld) 0.6 % 0-1 [facility] Eosinophils/100 WBC (Bld) 0.5 % 0-5 [facility] Neutrophils (Bld) [#/Vol] 5.4 10*3/uL 2.0-7.7 [facility] Neutrophils/100 WBC (Bld) 64.2 % 47-70 [facility] WBC (Bld) [#/Vol] 8.4 10*3/uL 4.4-11.0 [facility] Blood erythrocytes count (nu mber/volume)Ordered By: Renard Burgos on 01-03-2023 RBC (Bld) [#/Vol] 4.59 10*6/uL 4.6-6.2 [facility] Blood hemoglobin measurement (mass/volume)Ordered By: Renard Burgos on 01-03-2023 Hemoglobin (Bld) [Mass/Vol] 13.9 g/dL 13.0-16.5 [facility] Blood lymphocytes/100 leukoc ytesOrdered By: Renard Burgos on 01-03-2023 Lymphocytes/100 WBC (Bld) 25.9 % 19-41 [facility] Blood monocytes/100 leukocyt esOrdered By: Renard Burgos on 01-03-2023 Monocytes/100 WBC (Bld) 8.3 % 0-10 [facility] Blood platelet mean volumeOr dered By: Renard Burgos on 01-03-2023 Platelet mean volume (Bld) [Entitic vol] 11.0 fL 6.2-12.0 [facility] Determination of erythrocyte mean corpuscular volume (MCV)Ordered By: Renard Burgos on 01-03-2023 MCV (RBC) [Entitic vol] 92.8 fL 80-94 [facility] Hematocrit Auto (Bld) [Volum e fraction]Ordered By: Renard Burgos on 01-03-2023 Hematocrit (Bld) [Volume fraction] 42.6 % 40-54 [facility] - Hematology and Cell countsOrdered By: Renard Burgos on 01-03-2023 Erythrocyte distribution width (RBC) [Entitic vol] 42.5 fL 35.1-43.9 [facility] Erythrocyte distribution width (RBC) [Ratio] 12.6 % 11.6-14.6 [facility] Immature granulocytes/100 WBC (Bld) 0.500 % 0.0-0.9 [facility] Comment on above: IG% - Immature Granu locytes (promyelocytes, myelocytes and metamyelocytes) > 1% indicates that a LEFT SHIFT is Present. MCH (RBC) [Entitic mass] 30.3 pg 27.0-32.0 [facility] Nucleated RBC/100 WBC (Bld) [Ratio] 0 % 0-5 [facility] MCHC Auto (RBC) [Mass/Vol]Or dered By: Renard Burgos on 01-03-2023 MCHC (RBC) [Mass/Vol] 32.6 g/dL 32-36 [facility] No Panel InformationOrdered By: Renard Burgos on 01-03-2023 Prostate Specific Antigen Screen 3.37 ng/mL 0.00-4.00 [facility] Comment on above: This test was perfor med using the TPSA assay method for the[employer]a chemistry system. Values obtained with differentassay methods cannot be used interchangably.When changing PSA assays in the course of monitoring apatient, additional sequential testing should be carriedout to confirm baseline values. Platelets bldOrdered By: Lyubov Burgos on 01-03-2023 Platelets (Bld) [#/Vol] 200 10*3/uL 150-450 [facility] Absolute lymphocyte countOrd ered By: Renard Burgos on 12-26-2022 Lymphocytes Auto (Unsp spec) [#/Vol] 1.80 10*3/uL 0.83-4.51 [facility] Basophil percentageOrdered B y: Renard Burgos on 12-26-2022 Basophils/100 WBC (Bld) 0.4 % 0-1 [facility] Eosinophils/100 WBC (Bld) 0.6 % 0-5 [facility] Neutrophils (Bld) [#/Vol] 6.2 10*3/uL 2.0-7.7 [facility] Neutrophils/100 WBC (Bld) 69.8 % 47-70 [facility] WBC (Bld) [#/Vol] 8.9 10*3/uL 4.4-11.0 [facility] Blood erythrocytes count (nu mber/volume)Ordered By: Renard Burgos on 12-26-2022 RBC (Bld) [#/Vol] 4.58 10*6/uL 4.6-6.2 [facility] Blood hemoglobin measurement (mass/volume)Ordered By: Renard Burgos on 12-26-2022 Hemoglobin (Bld) [Mass/Vol] 14.0 g/dL 13.0-16.5 [facility] Blood lymphocytes/100 leukoc ytesOrdered By: Renard Burgos on 08-28-2023 Lymphocytes/100 WBC (Bld) 20.2 % 19-41 [facility] Blood monocytes/100 leukocyt esOrdered By: Renard Burgos on 12-26-2022 Monocytes/100 WBC (Bld) 8.6 % 0-10 [facility] Blood platelet mean volumeOr dered By: Renard Burgos on 12-26-2022 Platelet mean volume (Bld) [Entitic vol] 10.8 fL 6.2-12.0 [facility] Determination of erythrocyte mean corpuscular volume (MCV)Ordered By: Renard Burgos on 12-26-2022 MCV (RBC) [Entitic vol] 93.2 fL 80-94 [facility] Hematocrit Auto (Bld) [Volum e fraction]Ordered By: Renard Burgos on 12-26-2022 Hematocrit (Bld) [Volume fraction] 42.7 % 40-54 [facility] - Hematology and Cell countsOrdered By: Renard Burgos on 12-26-2022 Erythrocyte distribution width (RBC) [Entitic vol] 42.5 fL 35.1-43.9 [facility] Erythrocyte distribution width (RBC) [Ratio] 12.5 % 11.6-14.6 [facility] Immature granulocytes/100 WBC (Bld) 0.400 % 0.0-0.9 [facility] Comment on above: IG% - Immature Granu locytes (promyelocytes, myelocytes and metamyelocytes) > 1% indicates that a LEFT SHIFT is Present. MCH (RBC) [Entitic mass] 30.6 pg 27.0-32.0 [facility] Nucleated RBC/100 WBC (Bld) [Ratio] 0 % 0-5 [facility] MCHC Auto (RBC) [Mass/Vol]Or dered By: Renard Burgos on 12-26-2022 MCHC (RBC) [Mass/Vol] 32.8 g/dL 32-36 [facility] Platelets bldOrdered By: Lyubov Burgos on 12-26-2022 Platelets (Bld) [#/Vol] 200 10*3/uL 150-450 [facility] Absolute lymphocyte countOrd ered By: Renard Burgos on 12-19-2022 Lymphocytes Auto (Unsp spec) [#/Vol] 2.24 10*3/uL 0.83-4.51 [facility] Basophil percentageOrdered B y: Renard Burgos on 12-19-2022 Basophils/100 WBC (Bld) 0.3 % 0-1 [facility] Eosinophils/100 WBC (Bld) 0.8 % 0-5 [facility] Neutrophils (Bld) [#/Vol] 5.7 10*3/uL 2.0-7.7 [facility] Neutrophils/100 WBC (Bld) 64.1 % 47-70 [facility] WBC (Bld) [#/Vol] 8.9 10*3/uL 4.4-11.0 [facility] Blood erythrocytes count (nu mber/volume)Ordered By: Renard Burgos on 12-19-2022 RBC (Bld) [#/Vol] 4.44 10*6/uL 4.6-6.2 [facility] Blood hemoglobin measurement (mass/volume)Ordered By: Renard Burgos on 12-19-2022 Hemoglobin (Bld) [Mass/Vol] 13.5 g/dL 13.0-16.5 [facility] Blood lymphocytes/100 leukoc ytesOrdered By: Renard Burgos on 12-19-2022 Lymphocytes/100 WBC (Bld) 25.1 % 19-41 [facility] Blood monocytes/100 leukocyt esOrdered By: Renard Burgos on 12-19-2022 Monocytes/100 WBC (Bld) 9.4 % 0-10 [facility] Blood platelet mean volumeOr dered By: Renard Burgos on 12-19-2022 Platelet mean volume (Bld) [Entitic vol] 11.0 fL 6.2-12.0 [facility] Determination of erythrocyte mean corpuscular volume (MCV)Ordered By: Renard Burgos on 12-19-2022 MCV (RBC) [Entitic vol] 92.8 fL 80-94 [facility] Hematocrit Auto (Bld) [Volum e fraction]Ordered By: Renard Burgos on 12-19-2022 Hematocrit (Bld) [Volume fraction] 41.2 % 40-54 [facility] - Hematology and Cell countsOrdered By: Renard Burgos on 08-21-2023 Erythrocyte distribution width (RBC) [Entitic vol] 43.2 fL 35.1-43.9 [facility] Erythrocyte distribution width (RBC) [Ratio] 12.7 % 11.6-14.6 [facility] Immature granulocytes/100 WBC (Bld) 0.300 % 0.0-0.9 [facility] Comment on above: IG% - Immature Granu locytes (promyelocytes, myelocytes and metamyelocytes) > 1% indicates that a LEFT SHIFT is Present. MCH (RBC) [Entitic mass] 30.4 pg 27.0-32.0 [facility] Nucleated RBC/100 WBC (Bld) [Ratio] 0 % 0-5 [facility] MCHC Auto (RBC) [Mass/Vol]Or dered By: Renard Burgos on 12-19-2022 MCHC (RBC) [Mass/Vol] 32.8 g/dL 32-36 [facility] Platelets bldOrdered By: Lyubov Burgos on 12-19-2022 Platelets (Bld) [#/Vol] 194 10*3/uL 150-450 [facility] Absolute lymphocyte countOrd ered By: Renard Burgos on 12-12-2022 Lymphocytes Auto (Unsp spec) [#/Vol] 2.33 10*3/uL 0.83-4.51 [facility] Basophil percentageOrdered B y: Renard Burgos on 12-12-2022 Basophils/100 WBC (Bld) 0.6 % 0-1 [facility] Eosinophils/100 WBC (Bld) 0.9 % 0-5 [facility] Neutrophils (Bld) [#/Vol] 5.8 10*3/uL 2.0-7.7 [facility] Neutrophils/100 WBC (Bld) 63.5 % 47-70 [facility] WBC (Bld) [#/Vol] 9.1 10*3/uL 4.4-11.0 [facility] Blood erythrocytes count (nu mber/volume)Ordered By: Renard Burgos on 12-12-2022 RBC (Bld) [#/Vol] 4.52 10*6/uL 4.6-6.2 [facility] Blood hemoglobin measurement (mass/volume)Ordered By: Renard Burgos on 12-12-2022 Hemoglobin (Bld) [Mass/Vol] 13.9 g/dL 13.0-16.5 [facility] Blood lymphocytes/100 leukoc ytesOrdered By: Renrad Burgos on 12-12-2022 Lymphocytes/100 WBC (Bld) 25.6 % 19-41 [facility] Blood monocytes/100 leukocyt esOrdered By: Renard Burgos on 12-12-2022 Monocytes/100 WBC (Bld) 9.1 % 0-10 [facility] Blood platelet mean volumeOr dered By: Renard Burgos on 12-12-2022 Platelet mean volume (Bld) [Entitic vol] 10.9 fL 6.2-12.0 [facility] Determination of erythrocyte mean corpuscular volume (MCV)Ordered By: Renard Burgos on 12-12-2022 MCV (RBC) [Entitic vol] 94.2 fL 80-94 [facility] Hematocrit Auto (Bld) [Volum e fraction]Ordered By: Renard Burgos on 12-12-2022 Hematocrit (Bld) [Volume fraction] 42.6 % 40-54 [facility] - Hematology and Cell countsOrdered By: Renard Burgos on 12-12-2022 Erythrocyte distribution width (RBC) [Entitic vol] 44.3 fL 35.1-43.9 [facility] Erythrocyte distribution width (RBC) [Ratio] 12.8 % 11.6-14.6 [facility] Immature granulocytes/100 WBC (Bld) 0.300 % 0.0-0.9 [facility] Comment on above: IG% - Immature Granu locytes (promyelocytes, myelocytes and metamyelocytes) > 1% indicates that a LEFT SHIFT is Present. MCH (RBC) [Entitic mass] 30.8 pg 27.0-32.0 [facility] Nucleated RBC/100 WBC (Bld) [Ratio] 0 % 0-5 [facility] MCHC Auto (RBC) [Mass/Vol]Or dered By: Renard Burgos on 12-12-2022 MCHC (RBC) [Mass/Vol] 32.6 g/dL 32-36 [facility] Platelets bldOrdered By: Lyubov Burgos on 12-12-2022 Platelets (Bld) [#/Vol] 211 10*3/uL 150-450 [facility] Absolute lymphocyte countOrd ered By: Renard Burgos on 12-05-2022 Lymphocytes Auto (Unsp spec) [#/Vol] 1.94 10*3/uL 0.83-4.51 [facility] Basophil percentageOrdered B y: Renard Burgos on 12-05-2022 Basophils/100 WBC (Bld) 0.4 % 0-1 [facility] Eosinophils/100 WBC (Bld) 0.9 % 0-5 [facility] Neutrophils (Bld) [#/Vol] 4.1 10*3/uL 2.0-7.7 [facility] Neutrophils/100 WBC (Bld) 61.2 % 47-70 [facility] WBC (Bld) [#/Vol] 6.7 10*3/uL 4.4-11.0 [facility] Blood erythrocytes count (nu mber/volume)Ordered By: Renard Burgos on 12-05-2022 RBC (Bld) [#/Vol] 4.39 10*6/uL 4.6-6.2 [facility] Blood hemoglobin measurement (mass/volume)Ordered By: Renard Burgos on 12-05-2022 Hemoglobin (Bld) [Mass/Vol] 13.3 g/dL 13.0-16.5 [facility] Blood lymphocytes/100 leukoc ytesOrdered By: Renard Burgos on 12-05-2022 Lymphocytes/100 WBC (Bld) 28.8 % 19-41 [facility] Blood monocytes/100 leukocyt esOrdered By: Renard Burgos on 12-05-2022 Monocytes/100 WBC (Bld) 8.3 % 0-10 [facility] Blood platelet mean volumeOr dered By: Renard Burgos on 12-05-2022 Platelet mean volume (Bld) [Entitic vol] 10.8 fL 6.2-12.0 [facility] Determination of erythrocyte mean corpuscular volume (MCV)Ordered By: Renard Burgos on 12-05-2022 MCV (RBC) [Entitic vol] 90.7 fL 80-94 [facility] Hematocrit Auto (Bld) [Volum e fraction]Ordered By: Renard Burgos on 12-05-2022 Hematocrit (Bld) [Volume fraction] 39.8 % 40-54 [facility] - Hematology and Cell countsOrdered By: Renard Burgos on 12-05-2022 Erythrocyte distribution width (RBC) [Entitic vol] 41.8 fL 35.1-43.9 [facility] Erythrocyte distribution width (RBC) [Ratio] 12.6 % 11.6-14.6 [facility] Immature granulocytes/100 WBC (Bld) 0.400 % 0.0-0.9 [facility] Comment on above: IG% - Immature Granu locytes (promyelocytes, myelocytes and metamyelocytes) > 1% indicates that a LEFT SHIFT is Present. MCH (RBC) [Entitic mass] 30.3 pg 27.0-32.0 [facility] Nucleated RBC/100 WBC (Bld) [Ratio] 0 % 0-5 [facility] MCHC Auto (RBC) [Mass/Vol]Or dered By: Renard Burgos on 12-05-2022 MCHC (RBC) [Mass/Vol] 33.4 g/dL 32-36 [facility] Platelets bldOrdered By: Lyubov Burgos on 12-05-2022 Platelets (Bld) [#/Vol] 208 10*3/uL 150-450 [facility] Absolute lymphocyte countOrd ered By: Renard Burgos on 11-28-2022 Lymphocytes Auto (Unsp spec) [#/Vol] 2.07 10*3/uL 0.83-4.51 [facility] Basophil percentageOrdered B y: Renard Burgos on 11-28-2022 Basophils/100 WBC (Bld) 0.4 % 0-1 [facility] Eosinophils/100 WBC (Bld) 0.6 % 0-5 [facility] Neutrophils (Bld) [#/Vol] 5.1 10*3/uL 2.0-7.7 [facility] Neutrophils/100 WBC (Bld) 64.6 % 47-70 [facility] WBC (Bld) [#/Vol] 7.9 10*3/uL 4.4-11.0 [facility] Blood erythrocytes count (nu mber/volume)Ordered By: Renard Burgos on 11-28-2022 RBC (Bld) [#/Vol] 4.54 10*6/uL 4.6-6.2 [facility] Blood hemoglobin measurement (mass/volume)Ordered By: Renard Burgos on 11-28-2022 Hemoglobin (Bld) [Mass/Vol] 13.7 g/dL 13.0-16.5 [facility] Blood lymphocytes/100 leukoc ytesOrdered By: Renard Burgos on 11-28-2022 Lymphocytes/100 WBC (Bld) 26.2 % 19-41 [facility] Blood monocytes/100 leukocyt esOrdered By: Renard Burgos on 11-28-2022 Monocytes/100 WBC (Bld) 7.7 % 0-10 [facility] Blood platelet mean volumeOr dered By: Renard Burgos on 11-28-2022 Platelet mean volume (Bld) [Entitic vol] 10.6 fL 6.2-12.0 [facility] Determination of erythrocyte mean corpuscular volume (MCV)Ordered By: Renard Burgos on 11-28-2022 MCV (RBC) [Entitic vol] 93.6 fL 80-94 [facility] Hematocrit Auto (Bld) [Volum e fraction]Ordered By: Renard Burgos on 11-28-2022 Hematocrit (Bld) [Volume fraction] 42.5 % 40-54 [facility] - Hematology and Cell countsOrdered By: Renard Burgos on 11-28-2022 Erythrocyte distribution width (RBC) [Entitic vol] 43.5 fL 35.1-43.9 [facility] Erythrocyte distribution width (RBC) [Ratio] 12.7 % 11.6-14.6 [facility] Immature granulocytes/100 WBC (Bld) 0.500 % 0.0-0.9 [facility] Comment on above: IG% - Immature Granu locytes (promyelocytes, myelocytes and metamyelocytes) > 1% indicates that a LEFT SHIFT is Present. MCH (RBC) [Entitic mass] 30.2 pg 27.0-32.0 [facility] Nucleated RBC/100 WBC (Bld) [Ratio] 0 % 0-5 [facility] MCHC Auto (RBC) [Mass/Vol]Or dered By: Renard Burgos on 11-28-2022 MCHC (RBC) [Mass/Vol] 32.2 g/dL 32-36 [facility] Platelets bldOrdered By: Lyubov Burgos on 11-28-2022 Platelets (Bld) [#/Vol] 201 10*3/uL 150-450 [facility] Absolute lymphocyte countOrd ered By: Renard Burgos on 11-21-2022 Lymphocytes Auto (Unsp spec) [#/Vol] 2.32 10*3/uL 0.83-4.51 [facility] Basophil percentageOrdered B y: Renard Burgos on 11-21-2022 Basophils/100 WBC (Bld) 0.6 % 0-1 [facility] Eosinophils/100 WBC (Bld) 0.7 % 0-5 [facility] Neutrophils (Bld) [#/Vol] 5.0 10*3/uL 2.0-7.7 [facility] Neutrophils/100 WBC (Bld) 60.6 % 47-70 [facility] WBC (Bld) [#/Vol] 8.2 10*3/uL 4.4-11.0 [facility] Blood erythrocytes count (nu mber/volume)Ordered By: Renard Burgos on 11-21-2022 RBC (Bld) [#/Vol] 4.71 10*6/uL 4.6-6.2 [facility] Blood hemoglobin measurement (mass/volume)Ordered By: Renard Burgos on 11-21-2022 Hemoglobin (Bld) [Mass/Vol] 14.3 g/dL 13.0-16.5 [facility] Blood lymphocytes/100 leukoc ytesOrdered By: Renard Burgos on 11-21-2022 Lymphocytes/100 WBC (Bld) 28.2 % 19-41 [facility] Blood monocytes/100 leukocyt esOrdered By: Renard Burgos on 11-21-2022 Monocytes/100 WBC (Bld) 9.2 % 0-10 [facility] Blood platelet mean volumeOr dered By: Renard Burgos on 11-21-2022 Platelet mean volume (Bld) [Entitic vol] 10.4 fL 6.2-12.0 [facility] Determination of erythrocyte mean corpuscular volume (MCV)Ordered By: Renard Burgos on 11-21-2022 MCV (RBC) [Entitic vol] 91.9 fL 80-94 [facility] Hematocrit Auto (Bld) [Volum e fraction]Ordered By: Renard Burgos on 11-21-2022 Hematocrit (Bld) [Volume fraction] 43.3 % 40-54 [facility] - Hematology and Cell countsOrdered By: Renard Burgos on 11-21-2022 Erythrocyte distribution width (RBC) [Entitic vol] 43.1 fL 35.1-43.9 [facility] Erythrocyte distribution width (RBC) [Ratio] 12.8 % 11.6-14.6 [facility] Immature granulocytes/100 WBC (Bld) 0.700 % 0.0-0.9 [facility] Comment on above: IG% - Immature Granu locytes (promyelocytes, myelocytes and metamyelocytes) > 1% indicates that a LEFT SHIFT is Present. MCH (RBC) [Entitic mass] 30.4 pg 27.0-32.0 [facility] Nucleated RBC/100 WBC (Bld) [Ratio] 0 % 0-5 [facility] MCHC Auto (RBC) [Mass/Vol]Or dered By: Renard Burgos on 11-21-2022 MCHC (RBC) [Mass/Vol] 33.0 g/dL 32-36 [facility] Platelets bldOrdered By: Lyubov Burgos on 11-21-2022 Platelets (Bld) [#/Vol] 219 10*3/uL 150-450 [facility] Absolute lymphocyte countOrd ered By: Renard Burgos on 11-14-2022 Lymphocytes Auto (Unsp spec) [#/Vol] 1.82 10*3/uL 0.83-4.51 [facility] Basophil percentageOrdered B y: Renard Burgos on 11-14-2022 Basophils/100 WBC (Bld) 0.4 % 0-1 [facility] Chloride [Moles/Vol] 107 mmol/L 98-107 [facility] Eosinophils/100 WBC (Bld) 0.4 % 0-5 [facility] Glucose [Mass/Vol] 121 mg/dL 74-106 [facility] Comment on above: Fasting Glucose resu lt from 100 to 125 mg/dL suggests IMPAIRED HOMEOSTASIS per A.D.A. criteria. Neutrophils (Bld) [#/Vol] 4.7 10*3/uL 2.0-7.7 [facility] Neutrophils/100 WBC (Bld) 66.6 % 47-70 [facility] Potassium [Moles/Vol] 3.7 mmol/L 3.5-5.1 [facility] Sodium [Moles/Vol] 141 mmol/L 136-145 [facility] WBC (Bld) [#/Vol] 7.1 10*3/uL 4.4-11.0 [facility] Blood erythrocytes count (nu mber/volume)Ordered By: Renard Burgos on 11-14-2022 RBC (Bld) [#/Vol] 4.35 10*6/uL 4.6-6.2 [facility] Blood hemoglobin measurement (mass/volume)Ordered By: Renard Burgos on 11-14-2022 Hemoglobin (Bld) [Mass/Vol] 13.6 g/dL 13.0-16.5 [facility] Blood lymphocytes/100 leukoc ytesOrdered By: Renard Burgos on 11-14-2022 Lymphocytes/100 WBC (Bld) 25.6 % 19-41 [facility] Blood monocytes/100 leukocyt esOrdered By: Renard Burgos on 11-14-2022 Monocytes/100 WBC (Bld) 6.6 % 0-10 [facility] Blood platelet mean volumeOr dered By: Renard Burgos on 11-14-2022 Platelet mean volume (Bld) [Entitic vol] 10.9 fL 6.2-12.0 [facility] Determination of erythrocyte mean corpuscular volume (MCV)Ordered By: Renard Burgos on 11-14-2022 MCV (RBC) [Entitic vol] 93.3 fL 80-94 [facility] Hematocrit Auto (Bld) [Volum e fraction]Ordered By: Renard Burgos on 11-14-2022 Hematocrit (Bld) [Volume fraction] 40.6 % 40-54 [facility] - Chemistry and C hemistry - challengeOrdered By: Renard Burgos on 11-14-2022 CO2 [Moles/Vol] 31.0 mmol/L 21.0-32.0 [facility] Urea nitrogen/Creatinine [Mass ratio] 26.0 mg/mg 10-20 [facility] - Hematology and Cell countsOrdered By: Renard Burgos on 11-14-2022 Erythrocyte distribution width (RBC) [Entitic vol] 43.9 fL 35.1-43.9 [facility] Erythrocyte distribution width (RBC) [Ratio] 12.8 % 11.6-14.6 [facility] Immature granulocytes/100 WBC (Bld) 0.400 % 0.0-0.9 [facility] Comment on above: IG% - Immature Granu locytes (promyelocytes, myelocytes and metamyelocytes) > 1% indicates that a LEFT SHIFT is Present. MCH (RBC) [Entitic mass] 31.3 pg 27.0-32.0 [facility] Nucleated RBC/100 WBC (Bld) [Ratio] 0 % 0-5 [facility] MCHC Auto (RBC) [Mass/Vol]Or dered By: Renard Burgos on 11-14-2022 MCHC (RBC) [Mass/Vol] 33.5 g/dL 32-36 [facility] No Panel InformationOrdered By: Renard Burgos on 11-14-2022 Estimated GFR (MDRD) Amer 147 mL/min >60 [facility] Comment on above: GFR Calc Estimated GFR (MDRD) Non-Af Amer 122 mL/min >60 [facility] Comment on above: Non- GFR Calc Platelets bldOrdered By: Lyubov Burgos on 11-14-2022 Platelets (Bld) [#/Vol] 202 10*3/uL 150-450 [facility] Serum or plasma calcium gordy urement (mass/volume)Ordered By: Renard Burgos on 11-14-2022 Calcium [Mass/Vol] 8.2 mg/dL 8.5-10.1 [facility] Serum or plasma creatinine m easurement (mass/volume)Ordered By: Renard Burgos on 11-14-2022 Creatinine [Mass/Vol] 0.69 mg/dL 0.70-1.30 [facility] Comment on above: The validity of the calculated GFR & GFRAA in patients over 70 years has not been determined. Clinical correlation is essential. Serum or plasma urea nitroge n measurement (mass/volume)Ordered By: Renard Burgos on 11-14-2022 Urea nitrogen [Mass/Vol] 18 mg/dL 7-18 [facility] Thin prep Papanicolaou smear with manual screeningOrdered By: Renard Burgos on 11-14-2022 Thin prep Papanicolaou smear with manual screening 3 5-15 [facility] Absolute lymphocyte countOrd ered By: Renard Burgos on 11-07-2022 Lymphocytes Auto (Unsp spec) [#/Vol] 1.99 10*3/uL 0.83-4.51 [facility] Basophil percentageOrdered B y: Renard Burgos on 11-07-2022 Basophils/100 WBC (Bld) 0.8 % 0-1 [facility] Eosinophils/100 WBC (Bld) 0.5 % 0-5 [facility] Neutrophils (Bld) [#/Vol] 5.1 10*3/uL 2.0-7.7 [facility] Neutrophils/100 WBC (Bld) 64.0 % 47-70 [facility] WBC (Bld) [#/Vol] 8.0 10*3/uL 4.4-11.0 [facility] Blood erythrocytes count (nu mber/volume)Ordered By: Renard Burgos on 11-07-2022 RBC (Bld) [#/Vol] 4.45 10*6/uL 4.6-6.2 [facility] Blood hemoglobin measurement (mass/volume)Ordered By: Renard Burgos on 11-07-2022 Hemoglobin (Bld) [Mass/Vol] 13.7 g/dL 13.0-16.5 [facility] Blood lymphocytes/100 leukoc ytesOrdered By: Renard Burgos on 11-07-2022 Lymphocytes/100 WBC (Bld) 25.0 % 19-41 [facility] Blood monocytes/100 leukocyt esOrdered By: Renard Burgos on 11-07-2022 Monocytes/100 WBC (Bld) 9.4 % 0-10 [facility] Blood platelet mean volumeOr dered By: Renard Burgos on 11-07-2022 Platelet mean volume (Bld) [Entitic vol] 10.7 fL 6.2-12.0 [facility] Determination of erythrocyte mean corpuscular volume (MCV)Ordered By: Renard Burgos on 11-07-2022 MCV (RBC) [Entitic vol] 91.5 fL 80-94 [facility] Hematocrit Auto (Bld) [Volum e fraction]Ordered By: Renard Burgos on 11-07-2022 Hematocrit (Bld) [Volume fraction] 40.7 % 40-54 [facility] - Hematology and Cell countsOrdered By: Renard Burgos on 11-07-2022 Erythrocyte distribution width (RBC) [Entitic vol] 42.4 fL 35.1-43.9 [facility] Erythrocyte distribution width (RBC) [Ratio] 12.8 % 11.6-14.6 [facility] Immature granulocytes/100 WBC (Bld) 0.300 % 0.0-0.9 [facility] Comment on above: IG% - Immature Granu locytes (promyelocytes, myelocytes and metamyelocytes) > 1% indicates that a LEFT SHIFT is Present. MCH (RBC) [Entitic mass] 30.8 pg 27.0-32.0 [facility] Nucleated RBC/100 WBC (Bld) [Ratio] 0 % 0-5 [facility] MCHC Auto (RBC) [Mass/Vol]Or dered By: Renard Burgos on 11-07-2022 MCHC (RBC) [Mass/Vol] 33.7 g/dL 32-36 [facility] Platelets bldOrdered By: Lyubov Burgos on 11-07-2022 Platelets (Bld) [#/Vol] 220 10*3/uL 150-450 [facility] Absolute lymphocyte countOrd ered By: Renard Burgos on 10-31-2022 Lymphocytes Auto (Unsp spec) [#/Vol] 1.97 10*3/uL 0.83-4.51 [facility] Basophil percentageOrdered B y: Renard Burgos on 10-31-2022 Basophils/100 WBC (Bld) 0.5 % 0-1 [facility] Eosinophils/100 WBC (Bld) 0.6 % 0-5 [facility] Neutrophils (Bld) [#/Vol] 6.7 10*3/uL 2.0-7.7 [facility] Neutrophils/100 WBC (Bld) 69.9 % 47-70 [facility] WBC (Bld) [#/Vol] 9.6 10*3/uL 4.4-11.0 [facility] Blood erythrocytes count (nu mber/volume)Ordered By: Renard Burgos on 10-31-2022 RBC (Bld) [#/Vol] 4.47 10*6/uL 4.6-6.2 [facility] Blood hemoglobin measurement (mass/volume)Ordered By: Renard Burgos on 10-31-2022 Hemoglobin (Bld) [Mass/Vol] 13.5 g/dL 13.0-16.5 [facility] Blood lymphocytes/100 leukoc ytesOrdered By: Renard Burgos on 10-31-2022 Lymphocytes/100 WBC (Bld) 20.5 % 19-41 [facility] Blood monocytes/100 leukocyt esOrdered By: Renard Burgos on 10-31-2022 Monocytes/100 WBC (Bld) 7.9 % 0-10 [facility] Blood platelet mean volumeOr dered By: Renard Burgos on 10-31-2022 Platelet mean volume (Bld) [Entitic vol] 11.1 fL 6.2-12.0 [facility] Determination of erythrocyte mean corpuscular volume (MCV)Ordered By: Renard Burgos on 10-31-2022 MCV (RBC) [Entitic vol] 92.4 fL 80-94 [facility] Hematocrit Auto (Bld) [Volum e fraction]Ordered By: Renard Burgos on 10-31-2022 Hematocrit (Bld) [Volume fraction] 41.3 % 40-54 [facility] - Hematology and Cell countsOrdered By: Renard Burgos on 10-31-2022 Erythrocyte distribution width (RBC) [Entitic vol] 42.9 fL 35.1-43.9 [facility] Erythrocyte distribution width (RBC) [Ratio] 12.7 % 11.6-14.6 [facility] Immature granulocytes/100 WBC (Bld) 0.600 % 0.0-0.9 [facility] Comment on above: IG% - Immature Granu locytes (promyelocytes, myelocytes and metamyelocytes) > 1% indicates that a LEFT SHIFT is Present. MCH (RBC) [Entitic mass] 30.2 pg 27.0-32.0 [facility] Nucleated RBC/100 WBC (Bld) [Ratio] 0 % 0-5 [facility] MCHC Auto (RBC) [Mass/Vol]Or dered By: Renard Burgos on 10-31-2022 MCHC (RBC) [Mass/Vol] 32.7 g/dL 32-36 [facility] Platelets bldOrdered By: [facility] on 10-31-2022 Platelets (Bld) [#/Vol] 221 10*3/uL 150-450 [facility] Absolute lymphocyte countOrd ered By: Renard Burgos on 10-24-2022 Lymphocytes Auto (Unsp spec) [#/Vol] 1.96 10*3/uL 0.83-4.51 [facility] Basophil percentageOrdered B y: Renard Burgos on 10-24-2022 Basophils/100 WBC (Bld) 0.4 % 0-1 [facility] Eosinophils/100 WBC (Bld) 0.7 % 0-5 [facility] Neutrophils (Bld) [#/Vol] 4.5 10*3/uL 2.0-7.7 [facility] Neutrophils/100 WBC (Bld) 61.9 % 47-70 [facility] WBC (Bld) [#/Vol] 7.3 10*3/uL 4.4-11.0 [facility] Blood erythrocytes count (nu mber/volume)Ordered By: Renard Burgos on 10-24-2022 RBC (Bld) [#/Vol] 4.41 10*6/uL 4.6-6.2 [facility] Blood hemoglobin measurement (mass/volume)Ordered By: Renard Burgos on 10-24-2022 Hemoglobin (Bld) [Mass/Vol] 13.2 g/dL 13.0-16.5 [facility] Blood lymphocytes/100 leukoc ytesOrdered By: Renard Burgos on 10-24-2022 Lymphocytes/100 WBC (Bld) 27.0 % 19-41 [facility] Blood monocytes/100 leukocyt esOrdered By: Renard Burgos on 10-24-2022 Monocytes/100 WBC (Bld) 9.4 % 0-10 [facility] Blood platelet mean volumeOr dered By: Renard Burgos on 10-24-2022 Platelet mean volume (Bld) [Entitic vol] 10.9 fL 6.2-12.0 [facility] Determination of erythrocyte mean corpuscular volume (MCV)Ordered By: Renard Burgos on 10-24-2022 MCV (RBC) [Entitic vol] 92.1 fL 80-94 [facility] Hematocrit Auto (Bld) [Volum e fraction]Ordered By: Renard Burgos on 10-24-2022 Hematocrit (Bld) [Volume fraction] 40.6 % 40-54 [facility] - Hematology and Cell countsOrdered By: Renard Burgos on 10-24-2022 Erythrocyte distribution width (RBC) [Entitic vol] 42.8 fL 35.1-43.9 [facility] Erythrocyte distribution width (RBC) [Ratio] 12.8 % 11.6-14.6 [facility] Immature granulocytes/100 WBC (Bld) 0.600 % 0.0-0.9 [facility] Comment on above: IG% - Immature Granu locytes (promyelocytes, myelocytes and metamyelocytes) > 1% indicates that a LEFT SHIFT is Present. MCH (RBC) [Entitic mass] 29.9 pg 27.0-32.0 [facility] Nucleated RBC/100 WBC (Bld) [Ratio] 0 % 0-5 [facility] MCHC Auto (RBC) [Mass/Vol]Or dered By: Renard Burgos on 10-24-2022 MCHC (RBC) [Mass/Vol] 32.5 g/dL 32-36 [facility] Platelets bldOrdered By: Lyubov Burgos on 10-24-2022 Platelets (Bld) [#/Vol] 213 10*3/uL 150-450 [facility] Absolute lymphocyte countOrd ered By: Renard Burgos on 10-17-2022 Lymphocytes Auto (Unsp spec) [#/Vol] 2.05 10*3/uL 0.83-4.51 [facility] Basophil percentageOrdered B y: Renard Burgos on 10-17-2022 Basophils/100 WBC (Bld) 0.4 % 0-1 [facility] Eosinophils/100 WBC (Bld) 0.5 % 0-5 [facility] Neutrophils (Bld) [#/Vol] 6.7 10*3/uL 2.0-7.7 [facility] Neutrophils/100 WBC (Bld) 70.9 % 47-70 [facility] WBC (Bld) [#/Vol] 9.4 10*3/uL 4.4-11.0 [facility] Blood erythrocytes count (nu mber/volume)Ordered By: Renard Burgos on 10-17-2022 RBC (Bld) [#/Vol] 4.33 10*6/uL 4.6-6.2 [facility] Blood hemoglobin measurement (mass/volume)Ordered By: Renrad Burgos on 10-17-2022 Hemoglobin (Bld) [Mass/Vol] 13.3 g/dL 13.0-16.5 [facility] Blood lymphocytes/100 leukoc ytesOrdered By: Renard Burgos on 10-17-2022 Lymphocytes/100 WBC (Bld) 21.7 % 19-41 [facility] Blood monocytes/100 leukocyt esOrdered By: Renard Burgos on 10-17-2022 Monocytes/100 WBC (Bld) 6.1 % 0-10 [facility] Blood platelet mean volumeOr dered By: Renard Burgos on 10-17-2022 Platelet mean volume (Bld) [Entitic vol] 10.9 fL 6.2-12.0 [facility] Determination of erythrocyte mean corpuscular volume (MCV)Ordered By: Renard Burgos on 10-17-2022 MCV (RBC) [Entitic vol] 93.8 fL 80-94 [facility] Hematocrit Auto (Bld) [Volum e fraction]Ordered By: Renard Burgos on 10-17-2022 Hematocrit (Bld) [Volume fraction] 40.6 % 40-54 [facility] - Hematology and Cell countsOrdered By: Renard Burgos on 10-17-2022 Erythrocyte distribution width (RBC) [Entitic vol] 42.7 fL 35.1-43.9 [facility] Erythrocyte distribution width (RBC) [Ratio] 12.4 % 11.6-14.6 [facility] Immature granulocytes/100 WBC (Bld) 0.400 % 0.0-0.9 [facility] Comment on above: IG% - Immature Granu locytes (promyelocytes, myelocytes and metamyelocytes) > 1% indicates that a LEFT SHIFT is Present. MCH (RBC) [Entitic mass] 30.7 pg 27.0-32.0 [facility] Nucleated RBC/100 WBC (Bld) [Ratio] 0 % 0-5 [facility] MCHC Auto (RBC) [Mass/Vol]Or dered By: Renard Burgos on 10-17-2022 MCHC (RBC) [Mass/Vol] 32.8 g/dL 32-36 [facility] Platelets bldOrdered By: Lyubov Burgos on 10-17-2022 Platelets (Bld) [#/Vol] 186 10*3/uL 150-450 [facility] Absolute lymphocyte countOrd ered By: Renard Burgos on 10-10-2022 Lymphocytes Auto (Unsp spec) [#/Vol] 2.21 10*3/uL 0.83-4.51 [facility] Basophil percentageOrdered B y: Renard Burgos on 10-10-2022 Basophils/100 WBC (Bld) 0.6 % 0-1 [facility] Eosinophils/100 WBC (Bld) 0.6 % 0-5 [facility] Neutrophils (Bld) [#/Vol] 4.7 10*3/uL 2.0-7.7 [facility] Neutrophils/100 WBC (Bld) 59.6 % 47-70 [facility] WBC (Bld) [#/Vol] 7.9 10*3/uL 4.4-11.0 [facility] Blood erythrocytes count (nu mber/volume)Ordered By: Renard Burgos on 10-10-2022 RBC (Bld) [#/Vol] 4.78 10*6/uL 4.6-6.2 [facility] Blood hemoglobin measurement (mass/volume)Ordered By: Renard Burgos on 10-10-2022 Hemoglobin (Bld) [Mass/Vol] 14.4 g/dL 13.0-16.5 [facility] Blood lymphocytes/100 leukoc ytesOrdered By: Renard Burgos on 10-10-2022 Lymphocytes/100 WBC (Bld) 28.0 % 19-41 [facility] Blood monocytes/100 leukocyt esOrdered By: Renard Burgos on 10-10-2022 Monocytes/100 WBC (Bld) 10.8 % 0-10 [facility] Blood platelet mean volumeOr dered By: Renard Burgos on 10-10-2022 Platelet mean volume (Bld) [Entitic vol] 10.7 fL 6.2-12.0 [facility] Determination of erythrocyte mean corpuscular volume (MCV)Ordered By: Renard Burgos on 10-10-2022 MCV (RBC) [Entitic vol] 94.8 fL 80-94 [facility] Hematocrit Auto (Bld) [Volum e fraction]Ordered By: Renard Burgos on 10-10-2022 Hematocrit (Bld) [Volume fraction] 45.3 % 40-54 [facility] - Hematology and Cell countsOrdered By: Renard Burgos on 10-10-2022 Erythrocyte distribution width (RBC) [Entitic vol] 43.8 fL 35.1-43.9 [facility] Erythrocyte distribution width (RBC) [Ratio] 12.6 % 11.6-14.6 [facility] Immature granulocytes/100 WBC (Bld) 0.400 % 0.0-0.9 [facility] Comment on above: IG% - Immature Granu locytes (promyelocytes, myelocytes and metamyelocytes) > 1% indicates that a LEFT SHIFT is Present. MCH (RBC) [Entitic mass] 30.1 pg 27.0-32.0 [facility] Nucleated RBC/100 WBC (Bld) [Ratio] 0 % 0-5 [facility] MCHC Auto (RBC) [Mass/Vol]Or dered By: Renard Burgos on 10-10-2022 MCHC (RBC) [Mass/Vol] 31.8 g/dL 32-36 [facility] Platelets bldOrdered By: Lyubov Burgos on 10-10-2022 Platelets (Bld) [#/Vol] 198 10*3/uL 150-450 [facility] Absolute lymphocyte countOrd ered By: Renard Burgos on 10-03-2022 Lymphocytes Auto (Unsp spec) [#/Vol] 2.00 10*3/uL 0.83-4.51 [facility] Basophil percentageOrdered B y: Renard Burgos on 10-03-2022 Basophils/100 WBC (Bld) 0.6 % 0-1 [facility] Bilirubin [Mass/Vol] 0.30 mg/dL 0.20-1.00 [facility] Comment on above: For patients on eltr ombopag therapy, use of Dimension Nora TBIL is not recommended. Chloride [Moles/Vol] 109 mmol/L 98-107 [facility] Cholesterol [Mass/Vol] 129 mg/dL <200 [facility] Comment on above: <200 mg/dL Desirable 200-240 mg/dL Borderline >240 mg/dL High Risk Eosinophils/100 WBC (Bld) 0.8 % 0-5 [facility] Glucose [Mass/Vol] 82 mg/dL 74-106 [facility] Neutrophils (Bld) [#/Vol] 5.1 10*3/uL 2.0-7.7 [facility] Neutrophils/100 WBC (Bld) 63.2 % 47-70 [facility] Potassium [Moles/Vol] 3.9 mmol/L 3.5-5.1 [facility] Protein [Mass/Vol] 6.1 g/dL 6.4-8.2 [facility] Sodium [Moles/Vol] 140 mmol/L 136-145 [facility] Triglyceride [Mass/Vol] 209 mg/dL <199 [facility] Comment on above: The drugs N-Acetylcy steine and Metamizole may falsely depress this assay.Serum Triglycerides Reference Interval Normal <150 mg/dL Borderline high 150 - 199 mg/dL High 200 - 499 mg/dL Very High > or = 500 mg/dL WBC (Bld) [#/Vol] 8.0 10*3/uL 4.4-11.0 [facility] Blood erythrocytes count (nu mber/volume)Ordered By: Renard Burgos on 10-03-2022 RBC (Bld) [#/Vol] 4.58 10*6/uL 4.6-6.2 [facility] Blood hemoglobin measurement (mass/volume)Ordered By: Renard Burgos on 10-03-2022 Hemoglobin (Bld) [Mass/Vol] 13.9 g/dL 13.0-16.5 [facility] Blood lymphocytes/100 leukoc ytesOrdered By: Renard Burgos on 10-03-2022 Lymphocytes/100 WBC (Bld) 25.1 % 19-41 [facility] Blood monocytes/100 leukocyt esOrdered By: Renard Burgos on 10-03-2022 Monocytes/100 WBC (Bld) 10.0 % 0-10 [facility] Blood platelet mean volumeOr dered By: Renard Burgos on 10-03-2022 Platelet mean volume (Bld) [Entitic vol] 11.1 fL 6.2-12.0 [facility] Determination of erythrocyte mean corpuscular volume (MCV)Ordered By: Renard Burgos on 10-03-2022 MCV (RBC) [Entitic vol] 93.9 fL 80-94 [facility] Hematocrit Auto (Bld) [Volum e fraction]Ordered By: Renard Burgos on 10-03-2022 Hematocrit (Bld) [Volume fraction] 43.0 % 40-54 [facility] - Chemistry and C hemistry - challengeOrdered By: Renard Burgos on 10-03-2022 ALP [Catalytic activity/Vol] 98 U/L 45-117 [facility] ALT [Catalytic activity/Vol] 19 U/L 16-61 [facility] CO2 [Moles/Vol] 31.0 mmol/L 21.0-32.0 [facility] Globulin (S) [Mass/Vol] 3.1 g/dL 2.2-4.2 [facility] Urea nitrogen/Creatinine [Mass ratio] 25.6 mg/mg 10-20 [facility] - Hematology and Cell countsOrdered By: Renard Burgos on 10-03-2022 Erythrocyte distribution width (RBC) [Entitic vol] 43.8 fL 35.1-43.9 [facility] Erythrocyte distribution width (RBC) [Ratio] 12.7 % 11.6-14.6 [facility] Immature granulocytes/100 WBC (Bld) 0.300 % 0.0-0.9 [facility] Comment on above: IG% - Immature Granu locytes (promyelocytes, myelocytes and metamyelocytes) > 1% indicates that a LEFT SHIFT is Present. MCH (RBC) [Entitic mass] 30.3 pg 27.0-32.0 [facility] Nucleated RBC/100 WBC (Bld) [Ratio] 0 % 0-5 [facility] MCHC Auto (RBC) [Mass/Vol]Or dered By: Renard Burgos on 10-03-2022 MCHC (RBC) [Mass/Vol] 32.3 g/dL 32-36 [facility] No Panel InformationOrdered By: Renard Burgos on 10-03-2022 Estimated GFR (MDRD) Amer 165 mL/min >60 [facility] Comment on above: GFR Calc Estimated GFR (MDRD) Non-Af Amer 137 mL/min >60 [facility] Comment on above: Non- GFR Calc Platelets bldOrdered By: Lyubov Burgos on 10-03-2022 Platelets (Bld) [#/Vol] 204 10*3/uL 150-450 [facility] Serum or plasma albumin gordy urement (mass/volume)Ordered By: Renard Burgos on 10-03-2022 Albumin [Mass/Vol] 3.0 g/dL 3.2-5.0 [facility] Serum or plasma albumin/glob ulin mass ratioOrdered By: Renard Burgos on 10-03-2022 Albumin/Globulin [Mass ratio] 1.0 {ratio} 0.9-2.4 [facility] Serum or plasma calcium gordy urement (mass/volume)Ordered By: Renard Burgos on 10-03-2022 Calcium [Mass/Vol] 8.4 mg/dL 8.5-10.1 [facility] Serum or plasma cholesterol in HDL measurement (mass/volume)Ordered By: Renard Burgos on 10-03-2022 Cholesterol in HDL [Mass/Vol] 29 mg/dL >40 [facility] Comment on above: The drugs N-Acetylcy steine and Metamizole may falsely depress this assay. Reference Range HDL <40 mg/dL Low HDL Cholesterol HDL >or= 60 mg/dL High HDL Cholesterol Serum or plasma cholesterol in VLDL measurement (mass/volume)Ordered By: Renard Burgos on 10-03-2022 Cholesterol in VLDL [Mass/Vol] 42 mg/dL 5-40 [facility] Serum or plasma creatinine m easurement (mass/volume)Ordered By: Renard Burgos on 10-03-2022 Creatinine [Mass/Vol] 0.63 mg/dL 0.70-1.30 [facility] Comment on above: The validity of the calculated GFR & GFRAA in patients over 70 years has not been determined. Clinical correlation is essential. Serum or plasma low density lipoprotein (LDL) cholesterol measurement (mass/volume)Ordered By: Renard Burgos on 10-03-2022 Cholesterol in LDL [Mass/Vol] 58 mg/dL 0-130 [facility] Serum or plasma urea nitroge n measurement (mass/volume)Ordered By: Renard Burgos on 10-03-2022 Urea nitrogen [Mass/Vol] 16 mg/dL 7-18 [facility] Thin prep Papanicolaou smear with manual screeningOrdered By: Renard Burgos on 10-03-2022 Thin prep Papanicolaou smear with manual screening 13 U/L 15-37 [facility] Thin prep Papanicolaou smear with manual screening 0 5-15 [facility] Absolute lymphocyte countOrd ered By: Renard Burgos on 09-19-2022 Lymphocytes Auto (Unsp spec) [#/Vol] 1.59 10*3/uL 0.83-4.51 [facility] Basophil percentageOrdered B y: Renard Burgos on 09-19-2022 Basophils/100 WBC (Bld) 0.5 % 0-1 [facility] Eosinophils/100 WBC (Bld) 0.3 % 0-5 [facility] Neutrophils (Bld) [#/Vol] 7.4 10*3/uL 2.0-7.7 [facility] Neutrophils/100 WBC (Bld) 75.0 % 47-70 [facility] WBC (Bld) [#/Vol] 9.9 10*3/uL 4.4-11.0 [facility] Blood erythrocytes count (nu mber/volume)Ordered By: Renard Burgos on 09-19-2022 RBC (Bld) [#/Vol] 4.46 10*6/uL 4.6-6.2 [facility] Blood hemoglobin measurement (mass/volume)Ordered By: Renard Burgos on 09-19-2022 Hemoglobin (Bld) [Mass/Vol] 13.5 g/dL 13.0-16.5 [facility] Blood lymphocytes/100 leukoc ytesOrdered By: Renard Burgos on 09-19-2022 Lymphocytes/100 WBC (Bld) 16.1 % 19-41 [facility] Blood monocytes/100 leukocyt esOrdered By: Renard Burgos on 09-19-2022 Monocytes/100 WBC (Bld) 7.6 % 0-10 [facility] Blood platelet mean volumeOr dered By: Renard Burgos on 09-19-2022 Platelet mean volume (Bld) [Entitic vol] 10.8 fL 6.2-12.0 [facility] Determination of erythrocyte mean corpuscular volume (MCV)Ordered By: Renard Burgos on 09-19-2022 MCV (RBC) [Entitic vol] 92.2 fL 80-94 [facility] Hematocrit Auto (Bld) [Volum e fraction]Ordered By: Renard Burgos on 09-19-2022 Hematocrit (Bld) [Volume fraction] 41.1 % 40-54 [facility] - Hematology and Cell countsOrdered By: Renard Burgos on 09-19-2022 Erythrocyte distribution width (RBC) [Entitic vol] 41.2 fL 35.1-43.9 [facility] Erythrocyte distribution width (RBC) [Ratio] 12.3 % 11.6-14.6 [facility] Immature granulocytes/100 WBC (Bld) 0.500 % 0.0-0.9 [facility] Comment on above: IG% - Immature Granu locytes (promyelocytes, myelocytes and metamyelocytes) > 1% indicates that a LEFT SHIFT is Present. MCH (RBC) [Entitic mass] 30.3 pg 27.0-32.0 [facility] Nucleated RBC/100 WBC (Bld) [Ratio] 0 % 0-5 [facility] MCHC Auto (RBC) [Mass/Vol]Or dered By: Renard Burgos on 09-19-2022 MCHC (RBC) [Mass/Vol] 32.8 g/dL 32-36 [facility] Platelets bldOrdered By: Pet lizy Loretta on 09-19-2022 Platelets (Bld) [#/Vol] 245 10*3/uL 150-450 [facility] Absolute lymphocyte countOrd ered By: Renard Burgos on 09-12-2022 Lymphocytes Auto (Unsp spec) [#/Vol] 2.11 10*3/uL 0.83-4.51 [facility] Basophil percentageOrdered B y: Renard Burgos on 09-12-2022 Basophils/100 WBC (Bld) 0.5 % 0-1 [facility] Eosinophils/100 WBC (Bld) 0.7 % 0-5 [facility] Neutrophils (Bld) [#/Vol] 4.7 10*3/uL 2.0-7.7 [facility] Neutrophils/100 WBC (Bld) 63.6 % 47-70 [facility] WBC (Bld) [#/Vol] 7.3 10*3/uL 4.4-11.0 [facility] Blood erythrocytes count (nu mber/volume)Ordered By: Renard Burgos on 09-12-2022 RBC (Bld) [#/Vol] 4.40 10*6/uL 4.6-6.2 [facility] Blood hemoglobin measurement (mass/volume)Ordered By: Renard Burgos on 09-12-2022 Hemoglobin (Bld) [Mass/Vol] 13.5 g/dL 13.0-16.5 [facility] Blood lymphocytes/100 leukoc ytesOrdered By: Renard Burgos on 09-12-2022 Lymphocytes/100 WBC (Bld) 28.8 % 19-41 [facility] Blood monocytes/100 leukocyt esOrdered By: Renard Burgos on 09-12-2022 Monocytes/100 WBC (Bld) 6.1 % 0-10 [facility] Blood platelet mean volumeOr dered By: Renard Burgos on 09-12-2022 Platelet mean volume (Bld) [Entitic vol] 10.7 fL 6.2-12.0 [facility] Determination of erythrocyte mean corpuscular volume (MCV)Ordered By: Renard Burgos on 09-12-2022 MCV (RBC) [Entitic vol] 91.4 fL 80-94 [facility] Hematocrit Auto (Bld) [Volum e fraction]Ordered By: Renard Burgos on 09-12-2022 Hematocrit (Bld) [Volume fraction] 40.2 % 40-54 [facility] - Hematology and Cell countsOrdered By: Renard Burgos on 09-12-2022 Erythrocyte distribution width (RBC) [Entitic vol] 41.3 fL 35.1-43.9 [facility] Erythrocyte distribution width (RBC) [Ratio] 12.5 % 11.6-14.6 [facility] Immature granulocytes/100 WBC (Bld) 0.300 % 0.0-0.9 [facility] Comment on above: IG% - Immature Granu locytes (promyelocytes, myelocytes and metamyelocytes) > 1% indicates that a LEFT SHIFT is Present. MCH (RBC) [Entitic mass] 30.7 pg 27.0-32.0 [facility] Nucleated RBC/100 WBC (Bld) [Ratio] 0 % 0-5 [facility] MCHC Auto (RBC) [Mass/Vol]Or dered By: Renard Burgos on 09-12-2022 MCHC (RBC) [Mass/Vol] 33.6 g/dL 32-36 [facility] Platelets bldOrdered By: Lyubov Burgos on 09-12-2022 Platelets (Bld) [#/Vol] 197 10*3/uL 150-450 [facility] Absolute lymphocyte countOrd ered By: Renard Burgos on 09-05-2022 Lymphocytes Auto (Unsp spec) [#/Vol] 1.94 10*3/uL 0.83-4.51 [facility] Basophil percentageOrdered B y: Renard Burgos on 09-05-2022 Basophils/100 WBC (Bld) 0.5 % 0-1 [facility] Cholesterol [Mass/Vol] 136 mg/dL <200 [facility] Comment on above: <200 mg/dL Desirable 200-240 mg/dL Borderline >240 mg/dL High Risk Eosinophils/100 WBC (Bld) 0.4 % 0-5 [facility] Neutrophils (Bld) [#/Vol] 5.4 10*3/uL 2.0-7.7 [facility] Neutrophils/100 WBC (Bld) 67.5 % 47-70 [facility] Triglyceride [Mass/Vol] 304 mg/dL <199 [facility] Comment on above: The drugs N-Acetylcy steine and Metamizole may falsely depress this assay.Serum Triglycerides Reference Interval Normal <150 mg/dL Borderline high 150 - 199 mg/dL High 200 - 499 mg/dL Very High > or = 500 mg/dL WBC (Bld) [#/Vol] 7.9 10*3/uL 4.4-11.0 [facility] Blood erythrocytes count (nu mber/volume)Ordered By: Renard Burgos on 09-05-2022 RBC (Bld) [#/Vol] 4.28 10*6/uL 4.6-6.2 [facility] Blood hemoglobin measurement (mass/volume)Ordered By: Renard Burgos on 09-05-2022 Hemoglobin (Bld) [Mass/Vol] 12.9 g/dL 13.0-16.5 [facility] Blood lymphocytes/100 leukoc ytesOrdered By: Renard Burgos on 09-05-2022 Lymphocytes/100 WBC (Bld) 24.5 % 19-41 [facility] Blood monocytes/100 leukocyt esOrdered By: Renard Burgos on 09-05-2022 Monocytes/100 WBC (Bld) 6.6 % 0-10 [facility] Blood platelet mean volumeOr dered By: Renard Burgos on 09-05-2022 Platelet mean volume (Bld) [Entitic vol] 10.7 fL 6.2-12.0 [facility] Determination of erythrocyte mean corpuscular volume (MCV)Ordered By: Renard Burgos on 09-05-2022 MCV (RBC) [Entitic vol] 91.4 fL 80-94 [facility] Hematocrit Auto (Bld) [Volum e fraction]Ordered By: Renard Burgos on 09-05-2022 Hematocrit (Bld) [Volume fraction] 39.1 % 40-54 [facility] - Hematology and Cell countsOrdered By: Renard Burgos on 09-05-2022 Erythrocyte distribution width (RBC) [Entitic vol] 41.5 fL 35.1-43.9 [facility] Erythrocyte distribution width (RBC) [Ratio] 12.6 % 11.6-14.6 [facility] Immature granulocytes/100 WBC (Bld) 0.500 % 0.0-0.9 [facility] Comment on above: IG% - Immature Granu locytes (promyelocytes, myelocytes and metamyelocytes) > 1% indicates that a LEFT SHIFT is Present. MCH (RBC) [Entitic mass] 30.1 pg 27.0-32.0 [facility] Nucleated RBC/100 WBC (Bld) [Ratio] 0 % 0-5 [facility] MCHC Auto (RBC) [Mass/Vol]Or dered By: Renard Burgos on 09-05-2022 MCHC (RBC) [Mass/Vol] 33.0 g/dL 32-36 [facility] Platelets bldOrdered By: Lyubov Burgos on 09-05-2022 Platelets (Bld) [#/Vol] 200 10*3/uL 150-450 [facility] Serum or plasma cholesterol in HDL measurement (mass/volume)Ordered By: Renard Burgos on 09-05-2022 Cholesterol in HDL [Mass/Vol] 24 mg/dL >40 [facility] Comment on above: The drugs N-Acetylcy steine and Metamizole may falsely depress this assay. Reference Range HDL <40 mg/dL Low HDL Cholesterol HDL >or= 60 mg/dL High HDL Cholesterol Serum or plasma cholesterol in VLDL measurement (mass/volume)Ordered By: Renard Burgos on 09-05-2022 Cholesterol in VLDL [Mass/Vol] 61 mg/dL 5-40 [facility] Serum or plasma low density lipoprotein (LDL) cholesterol measurement (mass/volume)Ordered By: Renard Burgos on 09-05-2022 Cholesterol in LDL [Mass/Vol] 51 mg/dL 0-130 [facility] Absolute lymphocyte countOrd ered By: Renard Burgos on 08-29-2022 Lymphocytes Auto (Unsp spec) [#/Vol] 1.91 10*3/uL 0.83-4.51 [facility] Basophil percentageOrdered B y: Renard Burgos on 08-29-2022 Basophils/100 WBC (Bld) 0.4 % 0-1 [facility] Eosinophils/100 WBC (Bld) 0.4 % 0-5 [facility] Neutrophils (Bld) [#/Vol] 4.8 10*3/uL 2.0-7.7 [facility] Neutrophils/100 WBC (Bld) 66.0 % 47-70 [facility] WBC (Bld) [#/Vol] 7.3 10*3/uL 4.4-11.0 [facility] Blood erythrocytes count (nu mber/volume)Ordered By: Renard Burgos on 08-29-2022 RBC (Bld) [#/Vol] 4.43 10*6/uL 4.6-6.2 [facility] Blood hemoglobin measurement (mass/volume)Ordered By: Renard Burgos on 08-29-2022 Hemoglobin (Bld) [Mass/Vol] 13.6 g/dL 13.0-16.5 [facility] Blood lymphocytes/100 leukoc ytesOrdered By: Renard Burgos on 08-29-2022 Lymphocytes/100 WBC (Bld) 26.2 % 19-41 [facility] Blood monocytes/100 leukocyt esOrdered By: Renard Burgso on 08-29-2022 Monocytes/100 WBC (Bld) 6.6 % 0-10 [facility] Blood platelet mean volumeOr dered By: Renard Burgos on 08-29-2022 Platelet mean volume (Bld) [Entitic vol] 11.0 fL 6.2-12.0 [facility] Determination of erythrocyte mean corpuscular volume (MCV)Ordered By: Renard Burgos on 08-29-2022 MCV (RBC) [Entitic vol] 92.1 fL 80-94 [facility] Hematocrit Auto (Bld) [Volum e fraction]Ordered By: Renard Burgos on 08-29-2022 Hematocrit (Bld) [Volume fraction] 40.8 % 40-54 [facility] - Hematology and Cell countsOrdered By: Renard Burgos on 08-29-2022 Erythrocyte distribution width (RBC) [Entitic vol] 42.0 fL 35.1-43.9 [facility] Erythrocyte distribution width (RBC) [Ratio] 12.4 % 11.6-14.6 [facility] Immature granulocytes/100 WBC (Bld) 0.400 % 0.0-0.9 [facility] Comment on above: IG% - Immature Granu locytes (promyelocytes, myelocytes and metamyelocytes) > 1% indicates that a LEFT SHIFT is Present. MCH (RBC) [Entitic mass] 30.7 pg 27.0-32.0 [facility] Nucleated RBC/100 WBC (Bld) [Ratio] 0 % 0-5 [facility] MCHC Auto (RBC) [Mass/Vol]Or dered By: Renard Burgos on 08-29-2022 MCHC (RBC) [Mass/Vol] 33.3 g/dL 32-36 [facility] Platelets bldOrdered By: Lyubov Burgos on 08-29-2022 Platelets (Bld) [#/Vol] 195 10*3/uL 150-450 [facility] Absolute lymphocyte countOrd ered By: Renard Burgos on 08-22-2022 Lymphocytes Auto (Unsp spec) [#/Vol] 1.86 10*3/uL 0.83-4.51 [facility] Basophil percentageOrdered B y: Renard Burgos on 08-22-2022 Basophils/100 WBC (Bld) 0.4 % 0-1 [facility] Eosinophils/100 WBC (Bld) 0.4 % 0-5 [facility] Neutrophils (Bld) [#/Vol] 6.5 10*3/uL 2.0-7.7 [facility] Neutrophils/100 WBC (Bld) 70.5 % 47-70 [facility] WBC (Bld) [#/Vol] 9.3 10*3/uL 4.4-11.0 [facility] Blood erythrocytes count (nu mber/volume)Ordered By: Renard Burgos on 08-22-2022 RBC (Bld) [#/Vol] 4.55 10*6/uL 4.6-6.2 [facility] Blood hemoglobin measurement (mass/volume)Ordered By: Renard Burgos on 08-22-2022 Hemoglobin (Bld) [Mass/Vol] 14.1 g/dL 13.0-16.5 [facility] Blood lymphocytes/100 leukoc ytesOrdered By: Renard Burgos on 08-22-2022 Lymphocytes/100 WBC (Bld) 20.1 % 19-41 [facility] Blood monocytes/100 leukocyt esOrdered By: Renard Burgos on 08-22-2022 Monocytes/100 WBC (Bld) 8.3 % 0-10 [facility] Blood platelet mean volumeOr dered By: Renard Burgos on 08-22-2022 Platelet mean volume (Bld) [Entitic vol] 10.8 fL 6.2-12.0 [facility] Determination of erythrocyte mean corpuscular volume (MCV)Ordered By: Renard Burgos on 08-22-2022 MCV (RBC) [Entitic vol] 91.9 fL 80-94 [facility] Hematocrit Auto (Bld) [Volum e fraction]Ordered By: Renard Burgos on 08-22-2022 Hematocrit (Bld) [Volume fraction] 41.8 % 40-54 [facility] - Hematology and Cell countsOrdered By: Renard Burgos on 08-22-2022 Erythrocyte distribution width (RBC) [Entitic vol] 42.5 fL 35.1-43.9 [facility] Erythrocyte distribution width (RBC) [Ratio] 12.6 % 11.6-14.6 [facility] Immature granulocytes/100 WBC (Bld) 0.300 % 0.0-0.9 [facility] Comment on above: IG% - Immature Granu locytes (promyelocytes, myelocytes and metamyelocytes) > 1% indicates that a LEFT SHIFT is Present. MCH (RBC) [Entitic mass] 31.0 pg 27.0-32.0 [facility] Nucleated RBC/100 WBC (Bld) [Ratio] 0 % 0-5 [facility] MCHC Auto (RBC) [Mass/Vol]Or dered By: Renard Burgos on 08-22-2022 MCHC (RBC) [Mass/Vol] 33.7 g/dL 32-36 [facility] Platelets bldOrdered By: Lyubov Burgos on 08-22-2022 Platelets (Bld) [#/Vol] 197 10*3/uL 150-450 [facility] Absolute lymphocyte countOrd ered By: Renard Burgos on 08-15-2022 Lymphocytes Auto (Unsp spec) [#/Vol] 1.88 10*3/uL 0.83-4.51 [facility] Basophil percentageOrdered B y: Renard Burgos on 08-15-2022 Basophils/100 WBC (Bld) 0.5 % 0-1 [facility] Eosinophils/100 WBC (Bld) 0.5 % 0-5 [facility] Neutrophils (Bld) [#/Vol] 5.1 10*3/uL 2.0-7.7 [facility] Neutrophils/100 WBC (Bld) 65.0 % 47-70 [facility] WBC (Bld) [#/Vol] 7.9 10*3/uL 4.4-11.0 [facility] Blood erythrocytes count (nu mber/volume)Ordered By: Renard Burgos on 08-15-2022 RBC (Bld) [#/Vol] 4.48 10*6/uL 4.6-6.2 [facility] Blood hemoglobin measurement (mass/volume)Ordered By: Renard Burgos on 08-15-2022 Hemoglobin (Bld) [Mass/Vol] 13.7 g/dL 13.0-16.5 [facility] Blood lymphocytes/100 leukoc ytesOrdered By: Renard Burgos on 08-15-2022 Lymphocytes/100 WBC (Bld) 23.9 % 19-41 [facility] Blood monocytes/100 leukocyt esOrdered By: Renard Burgos on 08-15-2022 Monocytes/100 WBC (Bld) 9.8 % 0-10 [facility] Blood platelet mean volumeOr dered By: Renard Burgos on 08-15-2022 Platelet mean volume (Bld) [Entitic vol] 10.7 fL 6.2-12.0 [facility] Determination of erythrocyte mean corpuscular volume (MCV)Ordered By: Renard Burgos on 08-15-2022 MCV (RBC) [Entitic vol] 91.1 fL 80-94 [facility] Hematocrit Auto (Bld) [Volum e fraction]Ordered By: Renard Burgos on 08-15-2022 Hematocrit (Bld) [Volume fraction] 40.8 % 40-54 [facility] - Hematology and Cell countsOrdered By: Renard Burgos on 08-15-2022 Erythrocyte distribution width (RBC) [Entitic vol] 41.0 fL 35.1-43.9 [facility] Erythrocyte distribution width (RBC) [Ratio] 12.4 % 11.6-14.6 [facility] Immature granulocytes/100 WBC (Bld) 0.300 % 0.0-0.9 [facility] Comment on above: IG% - Immature Granu locytes (promyelocytes, myelocytes and metamyelocytes) > 1% indicates that a LEFT SHIFT is Present. MCH (RBC) [Entitic mass] 30.6 pg 27.0-32.0 [facility] Nucleated RBC/100 WBC (Bld) [Ratio] 0 % 0-5 [facility] MCHC Auto (RBC) [Mass/Vol]Or dered By: Renard Burgos on 08-15-2022 MCHC (RBC) [Mass/Vol] 33.6 g/dL 32-36 [facility] Platelets bldOrdered By: Lyubov Burgos on 08-15-2022 Platelets (Bld) [#/Vol] 212 10*3/uL 150-450 [facility] Absolute lymphocyte countOrd ered By: Renard Burgos on 08-08-2022 Lymphocytes Auto (Unsp spec) [#/Vol] 1.96 10*3/uL 0.83-4.51 [facility] Basophil percentageOrdered B y: Renard Burgos on 08-08-2022 Basophils/100 WBC (Bld) 0.5 % 0-1 [facility] Eosinophils/100 WBC (Bld) 0.5 % 0-5 [facility] Neutrophils (Bld) [#/Vol] 4.7 10*3/uL 2.0-7.7 [facility] Neutrophils/100 WBC (Bld) 64.1 % 47-70 [facility] WBC (Bld) [#/Vol] 7.4 10*3/uL 4.4-11.0 [facility] Blood erythrocytes count (nu mber/volume)Ordered By: Renard Burgos on 08-08-2022 RBC (Bld) [#/Vol] 4.44 10*6/uL 4.6-6.2 [facility] Blood hemoglobin measurement (mass/volume)Ordered By: Renard Burgos on 08-08-2022 Hemoglobin (Bld) [Mass/Vol] 13.6 g/dL 13.0-16.5 [facility] Blood lymphocytes/100 leukoc ytesOrdered By: Renard Burgos on 08-08-2022 Lymphocytes/100 WBC (Bld) 26.5 % 19-41 [facility] Blood monocytes/100 leukocyt esOrdered By: Renard Burgos on 08-08-2022 Monocytes/100 WBC (Bld) 8.1 % 0-10 [facility] Blood platelet mean volumeOr dered By: Renard Burgos on 08-08-2022 Platelet mean volume (Bld) [Entitic vol] 10.8 fL 6.2-12.0 [facility] Determination of erythrocyte mean corpuscular volume (MCV)Ordered By: Renard Burgos on 08-08-2022 MCV (RBC) [Entitic vol] 91.7 fL 80-94 [facility] Hematocrit Auto (Bld) [Volum e fraction]Ordered By: Renard Burgos on 08-08-2022 Hematocrit (Bld) [Volume fraction] 40.7 % 40-54 [facility] - Hematology and Cell countsOrdered By: Renard Burgos on 08-08-2022 Erythrocyte distribution width (RBC) [Entitic vol] 42.7 fL 35.1-43.9 [facility] Erythrocyte distribution width (RBC) [Ratio] 12.6 % 11.6-14.6 [facility] Immature granulocytes/100 WBC (Bld) 0.300 % 0.0-0.9 [facility] Comment on above: IG% - Immature Granu locytes (promyelocytes, myelocytes and metamyelocytes) > 1% indicates that a LEFT SHIFT is Present. MCH (RBC) [Entitic mass] 30.6 pg 27.0-32.0 [facility] Nucleated RBC/100 WBC (Bld) [Ratio] 0 % 0-5 [facility] MCHC Auto (RBC) [Mass/Vol]Or dered By: Renard Burgos on 08-08-2022 MCHC (RBC) [Mass/Vol] 33.4 g/dL 32-36 [facility] Platelets bldOrdered By: Lyubov Burgos on 08-08-2022 Platelets (Bld) [#/Vol] 187 10*3/uL 150-450 [facility] Absolute lymphocyte countOrd ered By: Renard Burgos on 08-01-2022 Lymphocytes Auto (Unsp spec) [#/Vol] 2.09 10*3/uL 0.83-4.51 [facility] Basophil percentageOrdered B y: Renard Burgos on 08-01-2022 Basophils/100 WBC (Bld) 0.4 % 0-1 [facility] Eosinophils/100 WBC (Bld) 0.4 % 0-5 [facility] Neutrophils (Bld) [#/Vol] 6.6 10*3/uL 2.0-7.7 [facility] Neutrophils/100 WBC (Bld) 69.1 % 47-70 [facility] WBC (Bld) [#/Vol] 9.5 10*3/uL 4.4-11.0 [facility] Blood erythrocytes count (nu mber/volume)Ordered By: Renard Burgos on 08-01-2022 RBC (Bld) [#/Vol] 4.48 10*6/uL 4.6-6.2 [facility] Blood hemoglobin measurement (mass/volume)Ordered By: Renard Burgos on 08-01-2022 Hemoglobin (Bld) [Mass/Vol] 13.9 g/dL 13.0-16.5 [facility] Blood lymphocytes/100 leukoc ytesOrdered By: Renard Burgos on 08-01-2022 Lymphocytes/100 WBC (Bld) 21.9 % 19-41 [facility] Blood monocytes/100 leukocyt esOrdered By: Renard Burgos on 08-01-2022 Monocytes/100 WBC (Bld) 7.9 % 0-10 [facility] Blood platelet mean volumeOr dered By: Renard Burgos on 08-01-2022 Platelet mean volume (Bld) [Entitic vol] 11.0 fL 6.2-12.0 [facility] Determination of erythrocyte mean corpuscular volume (MCV)Ordered By: Renard Burgos on 08-01-2022 MCV (RBC) [Entitic vol] 91.5 fL 80-94 [facility] Hematocrit Auto (Bld) [Volum e fraction]Ordered By: Renard Burgos on 08-01-2022 Hematocrit (Bld) [Volume fraction] 41.0 % 40-54 [facility] - Hematology and Cell countsOrdered By: Renard Burgos on 08-01-2022 Erythrocyte distribution width (RBC) [Entitic vol] 41.6 fL 35.1-43.9 [facility] Erythrocyte distribution width (RBC) [Ratio] 12.5 % 11.6-14.6 [facility] Immature granulocytes/100 WBC (Bld) 0.300 % 0.0-0.9 [facility] Comment on above: IG% - Immature Granu locytes (promyelocytes, myelocytes and metamyelocytes) > 1% indicates that a LEFT SHIFT is Present. MCH (RBC) [Entitic mass] 31.0 pg 27.0-32.0 [facility] Nucleated RBC/100 WBC (Bld) [Ratio] 0 % 0-5 [facility] MCHC Auto (RBC) [Mass/Vol]Or dered By: Renard Burgos on 08-01-2022 MCHC (RBC) [Mass/Vol] 33.9 g/dL 32-36 [facility] Platelets bldOrdered By: Lyubov Burgos on 08-01-2022 Platelets (Bld) [#/Vol] 208 10*3/uL 150-450 [facility] Absolute lymphocyte countOrd ered By: Renard Burgos on 07-25-2022 Lymphocytes Auto (Unsp spec) [#/Vol] 2.16 10*3/uL 0.83-4.51 [facility] Basophil percentageOrdered B y: Renard Burgos on 07-25-2022 Basophils/100 WBC (Bld) 0.6 % 0-1 [facility] Eosinophils/100 WBC (Bld) 0.6 % 0-5 [facility] Neutrophils (Bld) [#/Vol] 5.4 10*3/uL 2.0-7.7 [facility] Neutrophils/100 WBC (Bld) 64.5 % 47-70 [facility] WBC (Bld) [#/Vol] 8.4 10*3/uL 4.4-11.0 [facility] Blood erythrocytes count (nu mber/volume)Ordered By: Renard Burgos on 07-25-2022 RBC (Bld) [#/Vol] 4.45 10*6/uL 4.6-6.2 [facility] Blood hemoglobin measurement (mass/volume)Ordered By: Renard Burgos on 07-25-2022 Hemoglobin (Bld) [Mass/Vol] 13.4 g/dL 13.0-16.5 [facility] Blood lymphocytes/100 leukoc ytesOrdered By: Renard Burgos on 07-25-2022 Lymphocytes/100 WBC (Bld) 25.7 % 19-41 [facility] Blood monocytes/100 leukocyt esOrdered By: Renrad Burgos on 07-25-2022 Monocytes/100 WBC (Bld) 8.4 % 0-10 [facility] Blood platelet mean volumeOr dered By: Renard Burgos on 07-25-2022 Platelet mean volume (Bld) [Entitic vol] 11.0 fL 6.2-12.0 [facility] Determination of erythrocyte mean corpuscular volume (MCV)Ordered By: Renard Burgos on 07-25-2022 MCV (RBC) [Entitic vol] 92.8 fL 80-94 [facility] Hematocrit Auto (Bld) [Volum e fraction]Ordered By: Renard Burgos on 07-25-2022 Hematocrit (Bld) [Volume fraction] 41.3 % 40-54 [facility] - Hematology and Cell countsOrdered By: Renard Burgos on 07-25-2022 Erythrocyte distribution width (RBC) [Entitic vol] 42.5 fL 35.1-43.9 [facility] Erythrocyte distribution width (RBC) [Ratio] 12.5 % 11.6-14.6 [facility] Immature granulocytes/100 WBC (Bld) 0.200 % 0.0-0.9 [facility] Comment on above: IG% - Immature Granu locytes (promyelocytes, myelocytes and metamyelocytes) > 1% indicates that a LEFT SHIFT is Present. MCH (RBC) [Entitic mass] 30.1 pg 27.0-32.0 [facility] Nucleated RBC/100 WBC (Bld) [Ratio] 0 % 0-5 [facility] MCHC Auto (RBC) [Mass/Vol]Or dered By: Renard Burgos on 07-25-2022 MCHC (RBC) [Mass/Vol] 32.4 g/dL 32-36 [facility] Platelets bldOrdered By: Lyubov Burgos on 07-25-2022 Platelets (Bld) [#/Vol] 200 10*3/uL 150-450 [facility] No Panel InformationOrdered By: Renard Burgos on 07-19-2022 Vitamin D 25-Hydroxy 34.2 ng/mL [facility] Comment on above: Vitamin D 25(OH) Sta tus Range Deficiency <20 ng/mL (50nmol/L) Insufficiency 20 - 30 ng/mL (50 - 75 nmol/L) Sufficiency 30 - 100 ng/mL (75 - 250 nmol/L) Toxicity >100 ng/mL (>250 nmol/L) Absolute lymphocyte countOrd ered By: Renard Burgos on 07-18-2022 Lymphocytes Auto (Unsp spec) [#/Vol] 2.48 10*3/uL 0.83-4.51 [facility] Basophil percentageOrdered B y: Renard Burgos on 07-18-2022 Basophils/100 WBC (Bld) 0.5 % 0-1 [facility] Eosinophils/100 WBC (Bld) 0.6 % 0-5 [facility] Neutrophils (Bld) [#/Vol] 5.9 10*3/uL 2.0-7.7 [facility] Neutrophils/100 WBC (Bld) 61.6 % 47-70 [facility] WBC (Bld) [#/Vol] 9.6 10*3/uL 4.4-11.0 [facility] Blood erythrocytes count (nu mber/volume)Ordered By: Renard Burgos on 07-18-2022 RBC (Bld) [#/Vol] 4.56 10*6/uL 4.6-6.2 [facility] Blood hemoglobin measurement (mass/volume)Ordered By: Renard Burgos on 07-18-2022 Hemoglobin (Bld) [Mass/Vol] 13.9 g/dL 13.0-16.5 [facility] Blood lymphocytes/100 leukoc ytesOrdered By: Renard Burgos on 07-18-2022 Lymphocytes/100 WBC (Bld) 25.9 % 19-41 [facility] Blood monocytes/100 leukocyt esOrdered By: Renard Burgos on 07-18-2022 Monocytes/100 WBC (Bld) 11.0 % 0-10 [facility] Blood platelet mean volumeOr dered By: Renard Burgos on 07-18-2022 Platelet mean volume (Bld) [Entitic vol] 11.3 fL 6.2-12.0 [facility] Determination of erythrocyte mean corpuscular volume (MCV)Ordered By: Renard Burgos on 07-18-2022 MCV (RBC) [Entitic vol] 93.9 fL 80-94 [facility] Hematocrit Auto (Bld) [Volum e fraction]Ordered By: Renard Burgos on 07-18-2022 Hematocrit (Bld) [Volume fraction] 42.8 % 40-54 [facility] - Hematology and Cell countsOrdered By: Renard Burgos on 07-18-2022 Erythrocyte distribution width (RBC) [Entitic vol] 44.0 fL 35.1-43.9 [facility] Erythrocyte distribution width (RBC) [Ratio] 12.8 % 11.6-14.6 [facility] Immature granulocytes/100 WBC (Bld) 0.400 % 0.0-0.9 [facility] Comment on above: IG% - Immature Granu locytes (promyelocytes, myelocytes and metamyelocytes) > 1% indicates that a LEFT SHIFT is Present. MCH (RBC) [Entitic mass] 30.5 pg 27.0-32.0 [facility] Nucleated RBC/100 WBC (Bld) [Ratio] 0 % 0-5 [facility] MCHC Auto (RBC) [Mass/Vol]Or dered By: Renard Burgos on 07-18-2022 MCHC (RBC) [Mass/Vol] 32.5 g/dL 32-36 [facility] Platelets bldOrdered By: Lyubov Burgos on 07-18-2022 Platelets (Bld) [#/Vol] 207 10*3/uL 150-450 [facility] Absolute lymphocyte countOrd ered By: Renard Burgos on 07-11-2022 Lymphocytes Auto (Unsp spec) [#/Vol] 2.37 10*3/uL 0.83-4.51 [facility] Basophil percentageOrdered B y: Renard Burgos on 07-11-2022 Basophils/100 WBC (Bld) 0.6 % 0-1 [facility] Eosinophils/100 WBC (Bld) 0.5 % 0-5 [facility] Neutrophils (Bld) [#/Vol] 5.3 10*3/uL 2.0-7.7 [facility] Neutrophils/100 WBC (Bld) 61.8 % 47-70 [facility] WBC (Bld) [#/Vol] 8.5 10*3/uL 4.4-11.0 [facility] Blood erythrocytes count (nu mber/volume)Ordered By: Renard Burgos on 07-11-2022 RBC (Bld) [#/Vol] 4.83 10*6/uL 4.6-6.2 [facility] Blood hemoglobin measurement (mass/volume)Ordered By: Renard Burgos on 07-11-2022 Hemoglobin (Bld) [Mass/Vol] 14.7 g/dL 13.0-16.5 [facility] Blood lymphocytes/100 leukoc ytesOrdered By: Renard Burgos on 07-11-2022 Lymphocytes/100 WBC (Bld) 27.8 % 19-41 [facility] Blood monocytes/100 leukocyt esOrdered By: Renard Burgos on 07-11-2022 Monocytes/100 WBC (Bld) 8.8 % 0-10 [facility] Blood platelet mean volumeOr dered By: Renard Burgos on 07-11-2022 Platelet mean volume (Bld) [Entitic vol] 10.6 fL 6.2-12.0 [facility] Determination of erythrocyte mean corpuscular volume (MCV)Ordered By: Renard Burgos on 07-11-2022 MCV (RBC) [Entitic vol] 90.7 fL 80-94 [facility] Hematocrit Auto (Bld) [Volum e fraction]Ordered By: Renard Burgos on 07-11-2022 Hematocrit (Bld) [Volume fraction] 43.8 % 40-54 [facility] - Hematology and Cell countsOrdered By: Renard Burgos on 07-11-2022 Erythrocyte distribution width (RBC) [Entitic vol] 41.2 fL 35.1-43.9 [facility] Erythrocyte distribution width (RBC) [Ratio] 12.7 % 11.6-14.6 [facility] Immature granulocytes/100 WBC (Bld) 0.500 % 0.0-0.9 [facility] Comment on above: IG% - Immature Granu locytes (promyelocytes, myelocytes and metamyelocytes) > 1% indicates that a LEFT SHIFT is Present. MCH (RBC) [Entitic mass] 30.4 pg 27.0-32.0 [facility] Nucleated RBC/100 WBC (Bld) [Ratio] 0 % 0-5 [facility] MCHC Auto (RBC) [Mass/Vol]Or dered By: Renard Burgos on 07-11-2022 MCHC (RBC) [Mass/Vol] 33.6 g/dL 32-36 [facility] Platelets bldOrdered By: Lyubov Burgos on 07-11-2022 Platelets (Bld) [#/Vol] 207 10*3/uL 150-450 [facility] Absolute lymphocyte countOrd ered By: Renard Burgos on 07-04-2022 Lymphocytes Auto (Unsp spec) [#/Vol] 1.87 10*3/uL 0.83-4.51 [facility] Basophil percentageOrdered B y: Renard Burgos on 07-04-2022 Basophils/100 WBC (Bld) 0.4 % 0-1 [facility] Eosinophils/100 WBC (Bld) 0.5 % 0-5 [facility] Neutrophils (Bld) [#/Vol] 7.5 10*3/uL 2.0-7.7 [facility] Neutrophils/100 WBC (Bld) 72.8 % 47-70 [facility] WBC (Bld) [#/Vol] 10.3 10*3/uL 4.4-11.0 [facility] Blood erythrocytes count (nu mber/volume)Ordered By: Renard Burgos on 07-04-2022 RBC (Bld) [#/Vol] 4.45 10*6/uL 4.6-6.2 [facility] Blood hemoglobin measurement (mass/volume)Ordered By: Renard Burgos on 07-04-2022 Hemoglobin (Bld) [Mass/Vol] 13.5 g/dL 13.0-16.5 [facility] Blood lymphocytes/100 leukoc ytesOrdered By: Renard Burgos on 07-04-2022 Lymphocytes/100 WBC (Bld) 18.1 % 19-41 [facility] Blood monocytes/100 leukocyt esOrdered By: Renard Burgos on 07-04-2022 Monocytes/100 WBC (Bld) 7.7 % 0-10 [facility] Blood platelet mean volumeOr dered By: Renard Burgos on 07-04-2022 Platelet mean volume (Bld) [Entitic vol] 11.3 fL 6.2-12.0 [facility] Determination of erythrocyte mean corpuscular volume (MCV)Ordered By: Renard Burgos on 07-04-2022 MCV (RBC) [Entitic vol] 93.0 fL 80-94 [facility] Hematocrit Auto (Bld) [Volum e fraction]Ordered By: Renard Burgos on 07-04-2022 Hematocrit (Bld) [Volume fraction] 41.4 % 40-54 [facility] - Hematology and Cell countsOrdered By: Renard Burgos on 07-04-2022 Erythrocyte distribution width (RBC) [Entitic vol] 43.0 fL 35.1-43.9 [facility] Erythrocyte distribution width (RBC) [Ratio] 12.5 % 11.6-14.6 [facility] Immature granulocytes/100 WBC (Bld) 0.500 % 0.0-0.9 [facility] Comment on above: IG% - Immature Granu locytes (promyelocytes, myelocytes and metamyelocytes) > 1% indicates that a LEFT SHIFT is Present. MCH (RBC) [Entitic mass] 30.3 pg 27.0-32.0 [facility] Nucleated RBC/100 WBC (Bld) [Ratio] 0 % 0-5 [facility] MCHC Auto (RBC) [Mass/Vol]Or dered By: Renard Burgos on 07-04-2022 MCHC (RBC) [Mass/Vol] 32.6 g/dL 32-36 [facility] Platelets bldOrdered By: Lyubov Burgos on 07-04-2022 Platelets (Bld) [#/Vol] 211 10*3/uL 150-450 [facility] Absolute lymphocyte countOrd ered By: Renard Burgos on 06-27-2022 Lymphocytes Auto (Unsp spec) [#/Vol] 1.83 10*3/uL 0.83-4.51 [facility] Basophil percentageOrdered B y: Renard Burgos on 06-27-2022 Basophils/100 WBC (Bld) 0.4 % 0-1 [facility] Eosinophils/100 WBC (Bld) 0.5 % 0-5 [facility] Neutrophils (Bld) [#/Vol] 5.0 10*3/uL 2.0-7.7 [facility] Neutrophils/100 WBC (Bld) 67.6 % 47-70 [facility] WBC (Bld) [#/Vol] 7.4 10*3/uL 4.4-11.0 [facility] Blood erythrocytes count (nu mber/volume)Ordered By: Renard Burgos on 06-27-2022 RBC (Bld) [#/Vol] 4.52 10*6/uL 4.6-6.2 [facility] Blood hemoglobin measurement (mass/volume)Ordered By: Renard Burgos on 06-27-2022 Hemoglobin (Bld) [Mass/Vol] 13.9 g/dL 13.0-16.5 [facility] Blood lymphocytes/100 leukoc ytesOrdered By: Renard Burgos on 06-27-2022 Lymphocytes/100 WBC (Bld) 24.7 % 19-41 [facility] Blood monocytes/100 leukocyt esOrdered By: Renard Burgos on 06-27-2022 Monocytes/100 WBC (Bld) 6.4 % 0-10 [facility] Blood platelet mean volumeOr dered By: Renard Burgos on 06-27-2022 Platelet mean volume (Bld) [Entitic vol] 10.7 fL 6.2-12.0 [facility] Determination of erythrocyte mean corpuscular volume (MCV)Ordered By: Renard Burgos on 06-27-2022 MCV (RBC) [Entitic vol] 91.2 fL 80-94 [facility] Hematocrit Auto (Bld) [Volum e fraction]Ordered By: Renard Burgos on 06-27-2022 Hematocrit (Bld) [Volume fraction] 41.2 % 40-54 [facility] - Hematology and Cell countsOrdered By: Renard Burgos on 06-27-2022 Erythrocyte distribution width (RBC) [Entitic vol] 41.9 fL 35.1-43.9 [facility] Erythrocyte distribution width (RBC) [Ratio] 12.7 % 11.6-14.6 [facility] Immature granulocytes/100 WBC (Bld) 0.400 % 0.0-0.9 [facility] Comment on above: IG% - Immature Granu locytes (promyelocytes, myelocytes and metamyelocytes) > 1% indicates that a LEFT SHIFT is Present. MCH (RBC) [Entitic mass] 30.8 pg 27.0-32.0 [facility] Nucleated RBC/100 WBC (Bld) [Ratio] 0 % 0-5 [facility] MCHC Auto (RBC) [Mass/Vol]Or dered By: Renard Burgos on 06-27-2022 MCHC (RBC) [Mass/Vol] 33.7 g/dL 32-36 [facility] Platelets bldOrdered By: Lyubov Burgos on 06-27-2022 Platelets (Bld) [#/Vol] 200 10*3/uL 150-450 [facility] Absolute lymphocyte countOrd ered By: Renard Burgos on 06-20-2022 Lymphocytes Auto (Unsp spec) [#/Vol] 1.57 10*3/uL 0.83-4.51 [facility] Basophil percentageOrdered B y: Renard Burgos on 06-20-2022 Basophils/100 WBC (Bld) 0.2 % 0-1 [facility] Eosinophils/100 WBC (Bld) 0.2 % 0-5 [facility] Neutrophils (Bld) [#/Vol] 6.5 10*3/uL 2.0-7.7 [facility] Neutrophils/100 WBC (Bld) 74.5 % 47-70 [facility] WBC (Bld) [#/Vol] 8.8 10*3/uL 4.4-11.0 [facility] Blood erythrocytes count (nu mber/volume)Ordered By: Renard Burgos on 06-20-2022 RBC (Bld) [#/Vol] 4.79 10*6/uL 4.6-6.2 [facility] Blood hemoglobin measurement (mass/volume)Ordered By: Renard Burgos on 06-20-2022 Hemoglobin (Bld) [Mass/Vol] 14.6 g/dL 13.0-16.5 [facility] Blood lymphocytes/100 leukoc ytesOrdered By: Renard Burgos on 06-20-2022 Lymphocytes/100 WBC (Bld) 17.8 % 19-41 [facility] Blood monocytes/100 leukocyt esOrdered By: Renard Burgos on 06-20-2022 Monocytes/100 WBC (Bld) 7.0 % 0-10 [facility] Blood platelet mean volumeOr dered By: Renard Burgos on 06-20-2022 Platelet mean volume (Bld) [Entitic vol] 11.1 fL 6.2-12.0 [facility] Determination of erythrocyte mean corpuscular volume (MCV)Ordered By: Renard Burgos on 06-20-2022 MCV (RBC) [Entitic vol] 92.1 fL 80-94 [facility] Hematocrit Auto (Bld) [Volum e fraction]Ordered By: Renard Burgos on 06-20-2022 Hematocrit (Bld) [Volume fraction] 44.1 % 40-54 [facility] - Hematology and Cell countsOrdered By: Renard Burgos on 06-20-2022 Erythrocyte distribution width (RBC) [Entitic vol] 42.4 fL 35.1-43.9 [facility] Erythrocyte distribution width (RBC) [Ratio] 12.6 % 11.6-14.6 [facility] Immature granulocytes/100 WBC (Bld) 0.300 % 0.0-0.9 [facility] Comment on above: IG% - Immature Granu locytes (promyelocytes, myelocytes and metamyelocytes) > 1% indicates that a LEFT SHIFT is Present. MCH (RBC) [Entitic mass] 30.5 pg 27.0-32.0 [facility] Nucleated RBC/100 WBC (Bld) [Ratio] 0 % 0-5 [facility] MCHC Auto (RBC) [Mass/Vol]Or dered By: Renard Burgos on 06-20-2022 MCHC (RBC) [Mass/Vol] 33.1 g/dL 32-36 [facility] Platelets bldOrdered By: Lyubov Burgos on 06-20-2022 Platelets (Bld) [#/Vol] 207 10*3/uL 150-450 [facility] Absolute lymphocyte countOrd ered By: Renard Burgos on 06-13-2022 Lymphocytes Auto (Unsp spec) [#/Vol] 2.28 10*3/uL 0.83-4.51 [facility] Basophil percentageOrdered B y: Renard Burgos on 06-13-2022 Basophils/100 WBC (Bld) 0.5 % 0-1 [facility] Eosinophils/100 WBC (Bld) 0.4 % 0-5 [facility] Neutrophils (Bld) [#/Vol] 6.0 10*3/uL 2.0-7.7 [facility] Neutrophils/100 WBC (Bld) 65.6 % 47-70 [facility] WBC (Bld) [#/Vol] 9.2 10*3/uL 4.4-11.0 [facility] Blood erythrocytes count (nu mber/volume)Ordered By: Renard Burgos on 06-13-2022 RBC (Bld) [#/Vol] 4.55 10*6/uL 4.6-6.2 [facility] Blood hemoglobin measurement (mass/volume)Ordered By: Renard Burgos on 06-13-2022 Hemoglobin (Bld) [Mass/Vol] 13.7 g/dL 13.0-16.5 [facility] Blood lymphocytes/100 leukoc ytesOrdered By: Renard Burgos on 06-13-2022 Lymphocytes/100 WBC (Bld) 24.9 % 19-41 [facility] Blood monocytes/100 leukocyt esOrdered By: Renard Burgos on 06-13-2022 Monocytes/100 WBC (Bld) 8.2 % 0-10 [facility] Blood platelet mean volumeOr dered By: Renard Burgos on 06-13-2022 Platelet mean volume (Bld) [Entitic vol] 10.9 fL 6.2-12.0 [facility] Determination of erythrocyte mean corpuscular volume (MCV)Ordered By: Renard Burgos on 06-13-2022 MCV (RBC) [Entitic vol] 92.3 fL 80-94 [facility] Hematocrit Auto (Bld) [Volum e fraction]Ordered By: Renard Burgos on 06-13-2022 Hematocrit (Bld) [Volume fraction] 42.0 % 40-54 [facility] - Hematology and Cell countsOrdered By: Renard Burgos on 06-13-2022 Erythrocyte distribution width (RBC) [Entitic vol] 43.2 fL 35.1-43.9 [facility] Erythrocyte distribution width (RBC) [Ratio] 12.8 % 11.6-14.6 [facility] Immature granulocytes/100 WBC (Bld) 0.400 % 0.0-0.9 [facility] Comment on above: IG% - Immature Granu locytes (promyelocytes, myelocytes and metamyelocytes) > 1% indicates that a LEFT SHIFT is Present. MCH (RBC) [Entitic mass] 30.1 pg 27.0-32.0 [facility] Nucleated RBC/100 WBC (Bld) [Ratio] 0 % 0-5 [facility] MCHC Auto (RBC) [Mass/Vol]Or dered By: Renard Burgos on 06-13-2022 MCHC (RBC) [Mass/Vol] 32.6 g/dL 32-36 [facility] Platelets bldOrdered By: Lyubov Burgos on 06-13-2022 Platelets (Bld) [#/Vol] 203 10*3/uL 150-450 [facility] Absolute lymphocyte countOrd ered By: Renard Burgos on 06-06-2022 Lymphocytes Auto (Unsp spec) [#/Vol] 2.02 10*3/uL 0.83-4.51 [facility] Basophil percentageOrdered B y: Renard Burgos on 06-06-2022 Basophils/100 WBC (Bld) 0.5 % 0-1 [facility] Eosinophils/100 WBC (Bld) 0.7 % 0-5 [facility] Neutrophils (Bld) [#/Vol] 4.7 10*3/uL 2.0-7.7 [facility] Neutrophils/100 WBC (Bld) 63.3 % 47-70 [facility] WBC (Bld) [#/Vol] 7.4 10*3/uL 4.4-11.0 [facility] Blood erythrocytes count (nu mber/volume)Ordered By: Renard Burgos on 06-06-2022 RBC (Bld) [#/Vol] 4.57 10*6/uL 4.6-6.2 [facility] Blood hemoglobin measurement (mass/volume)Ordered By: Renard Burgos on 06-06-2022 Hemoglobin (Bld) [Mass/Vol] 14.0 g/dL 13.0-16.5 [facility] Blood lymphocytes/100 leukoc ytesOrdered By: Renard Burgos on 06-06-2022 Lymphocytes/100 WBC (Bld) 27.2 % 19-41 [facility] Blood monocytes/100 leukocyt esOrdered By: Renard Burgos on 06-06-2022 Monocytes/100 WBC (Bld) 7.9 % 0-10 [facility] Blood platelet mean volumeOr dered By: Renard Burgos on 06-06-2022 Platelet mean volume (Bld) [Entitic vol] 10.7 fL 6.2-12.0 [facility] Determination of erythrocyte mean corpuscular volume (MCV)Ordered By: Renard Burgos on 06-06-2022 MCV (RBC) [Entitic vol] 90.2 fL 80-94 [facility] Hematocrit Auto (Bld) [Volum e fraction]Ordered By: Renard Burgos on 06-06-2022 Hematocrit (Bld) [Volume fraction] 41.2 % 40-54 [facility] - Hematology and Cell countsOrdered By: Renard Burgos on 06-06-2022 Erythrocyte distribution width (RBC) [Entitic vol] 41.5 fL 35.1-43.9 [facility] Erythrocyte distribution width (RBC) [Ratio] 12.7 % 11.6-14.6 [facility] Immature granulocytes/100 WBC (Bld) 0.400 % 0.0-0.9 [facility] Comment on above: IG% - Immature Granu locytes (promyelocytes, myelocytes and metamyelocytes) > 1% indicates that a LEFT SHIFT is Present. MCH (RBC) [Entitic mass] 30.6 pg 27.0-32.0 [facility] Nucleated RBC/100 WBC (Bld) [Ratio] 0 % 0-5 [facility] MCHC Auto (RBC) [Mass/Vol]Or dered By: Renard Burgos on 06-06-2022 MCHC (RBC) [Mass/Vol] 34.0 g/dL 32-36 [facility] Platelets bldOrdered By: Lyubov Burgos on 06-06-2022 Platelets (Bld) [#/Vol] 197 10*3/uL 150-450 [facility] Absolute lymphocyte countOrd ered By: Renard Burgos on 05-30-2022 Lymphocytes Auto (Unsp spec) [#/Vol] 2.32 10*3/uL 0.83-4.51 [facility] Basophil percentageOrdered B y: Renard Burgos on 05-30-2022 Basophils/100 WBC (Bld) 0.4 % 0-1 [facility] Eosinophils/100 WBC (Bld) 0.5 % 0-5 [facility] Neutrophils (Bld) [#/Vol] 5.2 10*3/uL 2.0-7.7 [facility] Neutrophils/100 WBC (Bld) 62.6 % 47-70 [facility] WBC (Bld) [#/Vol] 8.3 10*3/uL 4.4-11.0 [facility] Blood erythrocytes count (nu mber/volume)Ordered By: Renard Burgos on 05-30-2022 RBC (Bld) [#/Vol] 4.87 10*6/uL 4.6-6.2 [facility] Blood hemoglobin measurement (mass/volume)Ordered By: Renard Burgos on 05-30-2022 Hemoglobin (Bld) [Mass/Vol] 14.6 g/dL 13.0-16.5 [facility] Blood lymphocytes/100 leukoc ytesOrdered By: Renard Burgos on 05-30-2022 Lymphocytes/100 WBC (Bld) 27.9 % 19-41 [facility] Blood monocytes/100 leukocyt esOrdered By: Renard Burgos on 05-30-2022 Monocytes/100 WBC (Bld) 8.0 % 0-10 [facility] Blood platelet mean volumeOr dered By: Renard Burgos on 05-30-2022 Platelet mean volume (Bld) [Entitic vol] 10.9 fL 6.2-12.0 [facility] Determination of erythrocyte mean corpuscular volume (MCV)Ordered By: Renard Burgos on 05-30-2022 MCV (RBC) [Entitic vol] 91.6 fL 80-94 [facility] Hematocrit Auto (Bld) [Volum e fraction]Ordered By: Renard Burgos on 05-30-2022 Hematocrit (Bld) [Volume fraction] 44.6 % 40-54 [facility] - Hematology and Cell countsOrdered By: Renard Burgos on 05-30-2022 Erythrocyte distribution width (RBC) [Entitic vol] 42.4 fL 35.1-43.9 [facility] Erythrocyte distribution width (RBC) [Ratio] 12.6 % 11.6-14.6 [facility] Immature granulocytes/100 WBC (Bld) 0.600 % 0.0-0.9 [facility] Comment on above: IG% - Immature Granu locytes (promyelocytes, myelocytes and metamyelocytes) > 1% indicates that a LEFT SHIFT is Present. MCH (RBC) [Entitic mass] 30.0 pg 27.0-32.0 [facility] Nucleated RBC/100 WBC (Bld) [Ratio] 0 % 0-5 [facility] MCHC Auto (RBC) [Mass/Vol]Or dered By: Renard Burgos on 05-30-2022 MCHC (RBC) [Mass/Vol] 32.7 g/dL 32-36 [facility] Platelets bldOrdered By: Lyubov Burgos on 05-30-2022 Platelets (Bld) [#/Vol] 213 10*3/uL 150-450 [facility] Absolute lymphocyte countOrd ered By: Renard Burgos on 05-23-2022 Lymphocytes Auto (Unsp spec) [#/Vol] 2.07 10*3/uL 0.83-4.51 [facility] Basophil percentageOrdered B y: Renard Burgos on 05-23-2022 Basophils/100 WBC (Bld) 0.5 % 0-1 [facility] Eosinophils/100 WBC (Bld) 0.4 % 0-5 [facility] Neutrophils (Bld) [#/Vol] 5.7 10*3/uL 2.0-7.7 [facility] Neutrophils/100 WBC (Bld) 66.5 % 47-70 [facility] WBC (Bld) [#/Vol] 8.5 10*3/uL 4.4-11.0 [facility] Blood erythrocytes count (nu mber/volume)Ordered By: Renard Burgos on 05-23-2022 RBC (Bld) [#/Vol] 4.75 10*6/uL 4.6-6.2 [facility] Blood hemoglobin measurement (mass/volume)Ordered By: Renard Burgos on 05-23-2022 Hemoglobin (Bld) [Mass/Vol] 14.3 g/dL 13.0-16.5 [facility] Blood lymphocytes/100 leukoc ytesOrdered By: Renard Burgos on 05-23-2022 Lymphocytes/100 WBC (Bld) 24.4 % 19-41 [facility] Blood monocytes/100 leukocyt esOrdered By: Renard Burgos on 05-23-2022 Monocytes/100 WBC (Bld) 7.7 % 0-10 [facility] Blood platelet mean volumeOr dered By: Renard Burgos on 05-23-2022 Platelet mean volume (Bld) [Entitic vol] 11.1 fL 6.2-12.0 [facility] Determination of erythrocyte mean corpuscular volume (MCV)Ordered By: Renard Burgos on 05-23-2022 MCV (RBC) [Entitic vol] 90.9 fL 80-94 [facility] Hematocrit Auto (Bld) [Volum e fraction]Ordered By: Renard Burgos on 05-23-2022 Hematocrit (Bld) [Volume fraction] 43.2 % 40-54 [facility] - Hematology and Cell countsOrdered By: Renard Burgos on 05-23-2022 Erythrocyte distribution width (RBC) [Entitic vol] 41.7 fL 35.1-43.9 [facility] Erythrocyte distribution width (RBC) [Ratio] 12.5 % 11.6-14.6 [facility] Immature granulocytes/100 WBC (Bld) 0.500 % 0.0-0.9 [facility] Comment on above: IG% - Immature Granu locytes (promyelocytes, myelocytes and metamyelocytes) > 1% indicates that a LEFT SHIFT is Present. MCH (RBC) [Entitic mass] 30.1 pg 27.0-32.0 [facility] Nucleated RBC/100 WBC (Bld) [Ratio] 0 % 0-5 [facility] MCHC Auto (RBC) [Mass/Vol]Or dered By: Renard Burgos on 05-23-2022 MCHC (RBC) [Mass/Vol] 33.1 g/dL 32-36 [facility] Platelets bldOrdered By: Lyubov Burgos on 05-23-2022 Platelets (Bld) [#/Vol] 213 10*3/uL 150-450 [facility] No Panel Informationon 05-20 Dejah Hazel DO 05/20/2022 7:32 PM Feeding Tube Replacement Performed by: Dejah Hazel DO Authorized by: Abelardo Rios DO Consent: Consent obtained: Verbal Consent given by: Patient [place] protocol: Patient identity confirmed: Verbally with patient [...] Procedure completion: Tolerated well, no immediate complications [facility] XR Abdomen Single viewon G-tube position is within the stomach. No evidence of contrast extravasation. Report Dictated on Electronically Signed By: Jason Tran Electronically Signed Date/Time: 05/20/2022 7:38 PM [facility] [employer] [facility] Patient Name: KATHYA HOOPER Exam Date/Time: 05/20/2022 19:18 Procedure: XR ABDOMEN 1 VIEW Ordering Provider: RIOS TYLER Reason For Exam: SUPINE ABDOMEN (KUB) CLINICAL INDICATION: confirm placement of G tube A supine plain film of the abdomen was obtained. Repeat abdominal radiographs following hand injection of enteric contrast via the patient's enteric tube. (Gastrografin 30 mL). COMPARISON: None FINDINGS: On the emergency nurse image, no dilated bowel loops are identified. Feeding tube overlies the epigastric region of the abdomen. On the postcontrast images, there is a small amount of enteric contrast in the stomach and contrast is present throughout the proximal duodenum. No extravasated contrast is evident. [facility] Jason Tran M D - 05/20/2022 [...] 30 mL). COMPARISON: None FINDINGS: On the emergency nurse image, no dilated bowel loops are identified. [...] Electronically Signed Date/Time: 05/20/2022 7:38 PM [facility] (narrative[facility] XR Abdomen Single viewOrdere d By: Jason Tran on 05-20-2022 [employer] Work Phone: Absolute lymphocyte countOrd ered By: Renard Burgos on 05-16-2022 Lymphocytes Auto (Unsp spec) [#/Vol] 2.06 10*3/uL 0.83-4.51 [facility] Basophil percentageOrdered B y: Renard Burgos on 05-16-2022 Basophils/100 WBC (Bld) 0.6 % 0-1 [facility] Eosinophils/100 WBC (Bld) 0.6 % 0-5 [facility] Neutrophils (Bld) [#/Vol] 4.4 10*3/uL 2.0-7.7 [facility] Neutrophils/100 WBC (Bld) 61.2 % 47-70 [facility] WBC (Bld) [#/Vol] 7.1 10*3/uL 4.4-11.0 [facility] Blood erythrocytes count (nu mber/volume)Ordered By: Renard Burgos on 05-16-2022 RBC (Bld) [#/Vol] 4.58 10*6/uL 4.6-6.2 [facility] Blood hemoglobin measurement (mass/volume)Ordered By: Renard Burgos on 05-16-2022 Hemoglobin (Bld) [Mass/Vol] 13.9 g/dL 13.0-16.5 [facility] Blood lymphocytes/100 leukoc ytesOrdered By: Renard Burgos on 05-16-2022 Lymphocytes/100 WBC (Bld) 29.0 % 19-41 [facility] Blood monocytes/100 leukocyt esOrdered By: Renard Burgos on 05-16-2022 Monocytes/100 WBC (Bld) 8.2 % 0-10 [facility] Blood platelet mean volumeOr dered By: Renard Burgos on 05-16-2022 Platelet mean volume (Bld) [Entitic vol] 11.1 fL 6.2-12.0 [facility] Determination of erythrocyte mean corpuscular volume (MCV)Ordered By: Renrad Burgos on 05-16-2022 MCV (RBC) [Entitic vol] 91.5 fL 80-94 [facility] Hematocrit Auto (Bld) [Volum e fraction]Ordered By: Renard Burgos on 05-16-2022 Hematocrit (Bld) [Volume fraction] 41.9 % 40-54 [facility] - Hematology and Cell countsOrdered By: Renard Burgos on 05-16-2022 Erythrocyte distribution width (RBC) [Entitic vol] 41.3 fL 35.1-43.9 [facility] Erythrocyte distribution width (RBC) [Ratio] 12.5 % 11.6-14.6 [facility] Immature granulocytes/100 WBC (Bld) 0.400 % 0.0-0.9 [facility] Comment on above: IG% - Immature Granu locytes (promyelocytes, myelocytes and metamyelocytes) > 1% indicates that a LEFT SHIFT is Present. MCH (RBC) [Entitic mass] 30.3 pg 27.0-32.0 [facility] Nucleated RBC/100 WBC (Bld) [Ratio] 0 % 0-5 [facility] MCHC Auto (RBC) [Mass/Vol]Or dered By: Renard Burgos on 05-16-2022 MCHC (RBC) [Mass/Vol] 33.2 g/dL 32-36 [facility] Platelets bldOrdered By: Lyubov Burgos on 05-16-2022 Platelets (Bld) [#/Vol] 205 10*3/uL 150-450 [facility] Absolute lymphocyte countOrd ered By: Renard Burgos on 05-09-2022 Lymphocytes Auto (Unsp spec) [#/Vol] 1.92 10*3/uL 0.83-4.51 [facility] Basophil percentageOrdered B y: Renard Burgos on 05-09-2022 Basophils/100 WBC (Bld) 0.7 % 0-1 [facility] Eosinophils/100 WBC (Bld) 0.7 % 0-5 [facility] Neutrophils (Bld) [#/Vol] 4.3 10*3/uL 2.0-7.7 [facility] Neutrophils/100 WBC (Bld) 60.9 % 47-70 [facility] WBC (Bld) [#/Vol] 7.1 10*3/uL 4.4-11.0 [facility] Blood erythrocytes count (nu mber/volume)Ordered By: Renard Burgos on 05-09-2022 RBC (Bld) [#/Vol] 4.67 10*6/uL 4.6-6.2 [facility] Blood hemoglobin measurement (mass/volume)Ordered By: Renard Burgos on 05-09-2022 Hemoglobin (Bld) [Mass/Vol] 14.1 g/dL 13.0-16.5 [facility] Blood lymphocytes/100 leukoc ytesOrdered By: Renard Burgos on 05-09-2022 Lymphocytes/100 WBC (Bld) 27.2 % 19-41 [facility] Blood monocytes/100 leukocyt esOrdered By: Renard Burgos on 05-09-2022 Monocytes/100 WBC (Bld) 10.2 % 0-10 [facility] Blood platelet mean volumeOr dered By: Renard Burgos on 05-09-2022 Platelet mean volume (Bld) [Entitic vol] 11.5 fL 6.2-12.0 [facility] Determination of erythrocyte mean corpuscular volume (MCV)Ordered By: Renard Burgos on 05-09-2022 MCV (RBC) [Entitic vol] 91.0 fL 80-94 [facility] Hematocrit Auto (Bld) [Volum e fraction]Ordered By: Renard Burgos on 05-09-2022 Hematocrit (Bld) [Volume fraction] 42.5 % 40-54 [facility] - Hematology and Cell countsOrdered By: Renard Burgos on 05-09-2022 Erythrocyte distribution width (RBC) [Entitic vol] 41.4 fL 35.1-43.9 [facility] Erythrocyte distribution width (RBC) [Ratio] 12.7 % 11.6-14.6 [facility] Immature granulocytes/100 WBC (Bld) 0.300 % 0.0-0.9 [facility] Comment on above: IG% - Immature Granu locytes (promyelocytes, myelocytes and metamyelocytes) > 1% indicates that a LEFT SHIFT is Present. MCH (RBC) [Entitic mass] 30.2 pg 27.0-32.0 [facility] Nucleated RBC/100 WBC (Bld) [Ratio] 0.4 % 0-5 [facility] MCHC Auto (RBC) [Mass/Vol]Or dered By: Renard Burgos on 05-09-2022 MCHC (RBC) [Mass/Vol] 33.2 g/dL 32-36 [facility] Platelets bldOrdered By: Lyubov Burgos on 05-09-2022 Platelets (Bld) [#/Vol] 202 10*3/uL 150-450 [facility] Absolute lymphocyte countOrd ered By: Renard Burgos on 05-03-2022 Lymphocytes Auto (Unsp spec) [#/Vol] 1.86 10*3/uL 0.83-4.51 [facility] Basophil percentageOrdered B y: Renard Burgos on 05-03-2022 Basophils/100 WBC (Bld) 0.3 % 0-1 [facility] Eosinophils/100 WBC (Bld) 0.3 % 0-5 [facility] Neutrophils (Bld) [#/Vol] 6.4 10*3/uL 2.0-7.7 [facility] Neutrophils/100 WBC (Bld) 71.9 % 47-70 [facility] WBC (Bld) [#/Vol] 8.9 10*3/uL 4.4-11.0 [facility] Blood erythrocytes count (nu mber/volume)Ordered By: Renard Burgos on 05-03-2022 RBC (Bld) [#/Vol] 4.65 10*6/uL 4.6-6.2 [facility] Blood hemoglobin measurement (mass/volume)Ordered By: Renard Burgos on 05-03-2022 Hemoglobin (Bld) [Mass/Vol] 14.5 g/dL 13.0-16.5 [facility] Blood lymphocytes/100 leukoc ytesOrdered By: Renard Burgos on 05-03-2022 Lymphocytes/100 WBC (Bld) 20.9 % 19-41 [facility] Blood monocytes/100 leukocyt esOrdered By: Renard Burgos on 05-03-2022 Monocytes/100 WBC (Bld) 6.2 % 0-10 [facility] Blood platelet mean volumeOr dered By: Renard Burgos on 05-03-2022 Platelet mean volume (Bld) [Entitic vol] 11.1 fL 6.2-12.0 [facility] Determination of erythrocyte mean corpuscular volume (MCV)Ordered By: Renard Burgos on 05-03-2022 MCV (RBC) [Entitic vol] 90.1 fL 80-94 [facility] Hematocrit Auto (Bld) [Volum e fraction]Ordered By: Renard Burgos on 05-03-2022 Hematocrit (Bld) [Volume fraction] 41.9 % 40-54 [facility] - Hematology and Cell countsOrdered By: Renard Burgos on 05-03-2022 Erythrocyte distribution width (RBC) [Entitic vol] 39.7 fL 35.1-43.9 [facility] Erythrocyte distribution width (RBC) [Ratio] 12.2 % 11.6-14.6 [facility] Immature granulocytes/100 WBC (Bld) 0.400 % 0.0-0.9 [facility] Comment on above: IG% - Immature Granu locytes (promyelocytes, myelocytes and metamyelocytes) > 1% indicates that a LEFT SHIFT is Present. MCH (RBC) [Entitic mass] 31.2 pg 27.0-32.0 [facility] Nucleated RBC/100 WBC (Bld) [Ratio] 0 % 0-5 [facility] MCHC Auto (RBC) [Mass/Vol]Or dered By: Renard Burgos on 05-03-2022 MCHC (RBC) [Mass/Vol] 34.6 g/dL 32-36 [facility] Platelets bldOrdered By: Lyubov Burgos on 05-03-2022 Platelets (Bld) [#/Vol] 203 10*3/uL 150-450 [facility] Absolute lymphocyte countOrd ered By: Renard Burgos on 04-26-2022 Lymphocytes Auto (Unsp spec) [#/Vol] 2.79 10*3/uL 0.83-4.51 [facility] Basophil percentageOrdered B y: Renard Burgos on 04-26-2022 Basophils/100 WBC (Bld) 0.4 % 0-1 [facility] Eosinophils/100 WBC (Bld) 0.4 % 0-5 [facility] Neutrophils (Bld) [#/Vol] 5.9 10*3/uL 2.0-7.7 [facility] Neutrophils/100 WBC (Bld) 60.9 % 47-70 [facility] WBC (Bld) [#/Vol] 9.7 10*3/uL 4.4-11.0 [facility] Blood erythrocytes count (nu mber/volume)Ordered By: Renard Burgos on 04-26-2022 RBC (Bld) [#/Vol] 4.92 10*6/uL 4.6-6.2 [facility] Blood hemoglobin measurement (mass/volume)Ordered By: Renard Burgos on 04-26-2022 Hemoglobin (Bld) [Mass/Vol] 15.2 g/dL 13.0-16.5 [facility] Blood lymphocytes/100 leukoc ytesOrdered By: Renard Burgos on 04-26-2022 Lymphocytes/100 WBC (Bld) 28.9 % 19-41 [facility] Blood monocytes/100 leukocyt esOrdered By: Renard Burgos on 04-26-2022 Monocytes/100 WBC (Bld) 9.0 % 0-10 [facility] Blood platelet mean volumeOr dered By: Renard Burgos on 04-26-2022 Platelet mean volume (Bld) [Entitic vol] 11.0 fL 6.2-12.0 [facility] Determination of erythrocyte mean corpuscular volume (MCV)Ordered By: Renard Burgos on 04-26-2022 MCV (RBC) [Entitic vol] 92.3 fL 80-94 [facility] Hematocrit Auto (Bld) [Volum e fraction]Ordered By: Renard Burgos on 04-26-2022 Hematocrit (Bld) [Volume fraction] 45.4 % 40-54 [facility] - Hematology and Cell countsOrdered By: Renard Burgos on 04-26-2022 Erythrocyte distribution width (RBC) [Entitic vol] 42.1 fL 35.1-43.9 [facility] Erythrocyte distribution width (RBC) [Ratio] 12.5 % 11.6-14.6 [facility] Immature granulocytes/100 WBC (Bld) 0.400 % 0.0-0.9 [facility] Comment on above: IG% - Immature Granu locytes (promyelocytes, myelocytes and metamyelocytes) > 1% indicates that a LEFT SHIFT is Present. MCH (RBC) [Entitic mass] 30.9 pg 27.0-32.0 [facility] Nucleated RBC/100 WBC (Bld) [Ratio] 0 % 0-5 [facility] MCHC Auto (RBC) [Mass/Vol]Or dered By: Renard Burgos on 04-26-2022 MCHC (RBC) [Mass/Vol] 33.5 g/dL 32-36 [facility] Platelets bldOrdered By: Pet lizy Loretta on 04-26-2022 Platelets (Bld) [#/Vol] 178 10*3/uL 150-450 [facility] Absolute lymphocyte countOrd ered By: Renard Burgos on 04-18-2022 Lymphocytes Auto (Unsp spec) [#/Vol] 2.03 10*3/uL 0.83-4.51 [facility] Basophil percentageOrdered B y: Renard Burgos on 04-18-2022 Basophils/100 WBC (Bld) 0.6 % 0-1 [facility] Eosinophils/100 WBC (Bld) 0.6 % 0-5 [facility] Neutrophils (Bld) [#/Vol] 4.5 10*3/uL 2.0-7.7 [facility] Neutrophils/100 WBC (Bld) 62.0 % 47-70 [facility] WBC (Bld) [#/Vol] 7.2 10*3/uL 4.4-11.0 [facility] Blood erythrocytes count (nu mber/volume)Ordered By: Renard Burgos on 04-18-2022 RBC (Bld) [#/Vol] 4.67 10*6/uL 4.6-6.2 [facility] Blood hemoglobin measurement (mass/volume)Ordered By: Renard Burgos on 04-18-2022 Hemoglobin (Bld) [Mass/Vol] 14.5 g/dL 13.0-16.5 [facility] Blood lymphocytes/100 leukoc ytesOrdered By: Renard Burgos on 04-18-2022 Lymphocytes/100 WBC (Bld) 28.2 % 19-41 [facility] Blood monocytes/100 leukocyt esOrdered By: Renard Burgos on 04-18-2022 Monocytes/100 WBC (Bld) 8.2 % 0-10 [facility] Blood platelet mean volumeOr dered By: Renard Burgos on 04-18-2022 Platelet mean volume (Bld) [Entitic vol] 11.2 fL 6.2-12.0 [facility] Determination of erythrocyte mean corpuscular volume (MCV)Ordered By: eRnard Burgos on 04-18-2022 MCV (RBC) [Entitic vol] 90.8 fL 80-94 [facility] Hematocrit Auto (Bld) [Volum e fraction]Ordered By: Renard Burgos on 04-18-2022 Hematocrit (Bld) [Volume fraction] 42.4 % 40-54 [facility] - Hematology and Cell countsOrdered By: Renard Burgos on 04-18-2022 Erythrocyte distribution width (RBC) [Entitic vol] 41.1 fL 35.1-43.9 [facility] Erythrocyte distribution width (RBC) [Ratio] 12.5 % 11.6-14.6 [facility] Immature granulocytes/100 WBC (Bld) 0.400 % 0.0-0.9 [facility] Comment on above: IG% - Immature Granu locytes (promyelocytes, myelocytes and metamyelocytes) > 1% indicates that a LEFT SHIFT is Present. MCH (RBC) [Entitic mass] 31.0 pg 27.0-32.0 [facility] Nucleated RBC/100 WBC (Bld) [Ratio] 0 % 0-5 [facility] MCHC Auto (RBC) [Mass/Vol]Or dered By: Renard Burgos on 04-18-2022 MCHC (RBC) [Mass/Vol] 34.2 g/dL 32-36 [facility] Platelets bldOrdered By: Lyubov Burgos on 04-18-2022 Platelets (Bld) [#/Vol] 196 10*3/uL 150-450 [facility] Basophil percentageOrdered B y: Renard Burgos on 04-14-2022 Bilirubin [Mass/Vol] 0.40 mg/dL 0.20-1.00 [facility] Comment on above: For patients on eltr ombopag therapy, use of Dimension Nora TBIL is not recommended. Protein [Mass/Vol] 6.3 g/dL 6.4-8.2 [facility] Direct bilirubinOrdered By: Renard Burgos on 04-14-2022 Bilirubin.direct [Mass/Vol] 0.12 mg/dL 0.00-0.30 [facility] - Chemistry and C hemistry - challengeOrdered By: Renard Burgos on 04-14-2022 ALP [Catalytic activity/Vol] 117 U/L 45-117 [facility] ALT [Catalytic activity/Vol] 26 U/L 16-61 [facility] Globulin (S) [Mass/Vol] 3.2 g/dL 2.2-4.2 [facility] Serum or plasma albumin gordy urement (mass/volume)Ordered By: Renard Burgos on 04-14-2022 Albumin [Mass/Vol] 3.1 g/dL 3.2-5.0 [facility] Thin prep Papanicolaou smear with manual screeningOrdered By: Renard Burgos on 04-14-2022 Thin prep Papanicolaou smear with manual screening 12 U/L 15-37 [facility] Absolute lymphocyte countOrd ered By: Renard Burgos on 04-11-2022 Lymphocytes Auto (Unsp spec) [#/Vol] 2.16 10*3/uL 0.83-4.51 [facility] Basophil percentageOrdered B y: Renard Burgos on 04-11-2022 Basophils/100 WBC (Bld) 0.4 % 0-1 [facility] Eosinophils/100 WBC (Bld) 0.4 % 0-5 [facility] Neutrophils (Bld) [#/Vol] 4.2 10*3/uL 2.0-7.7 [facility] Neutrophils/100 WBC (Bld) 61.1 % 47-70 [facility] WBC (Bld) [#/Vol] 6.9 10*3/uL 4.4-11.0 [facility] Blood erythrocytes count (nu mber/volume)Ordered By: Renard Burgos on 04-11-2022 RBC (Bld) [#/Vol] 4.58 10*6/uL 4.6-6.2 [facility] Blood hemoglobin measurement (mass/volume)Ordered By: Renard Burgos on 04-11-2022 Hemoglobin (Bld) [Mass/Vol] 13.9 g/dL 13.0-16.5 [facility] Blood lymphocytes/100 leukoc ytesOrdered By: Renard Burgos on 04-11-2022 Lymphocytes/100 WBC (Bld) 31.2 % 19-41 [facility] Blood monocytes/100 leukocyt esOrdered By: Renard Burgos on 04-11-2022 Monocytes/100 WBC (Bld) 6.5 % 0-10 [facility] Blood platelet mean volumeOr dered By: Renard Burgos on 04-11-2022 Platelet mean volume (Bld) [Entitic vol] 11.4 fL 6.2-12.0 [facility] Determination of erythrocyte mean corpuscular volume (MCV)Ordered By: Renard Burgos on 04-11-2022 MCV (RBC) [Entitic vol] 91.9 fL 80-94 [facility] Hematocrit Auto (Bld) [Volum e fraction]Ordered By: Renard Burgos on 04-11-2022 Hematocrit (Bld) [Volume fraction] 42.1 % 40-54 [facility] - Hematology and Cell countsOrdered By: Renard Burgos on 04-11-2022 Erythrocyte distribution width (RBC) [Entitic vol] 41.5 fL 35.1-43.9 [facility] Erythrocyte distribution width (RBC) [Ratio] 12.3 % 11.6-14.6 [facility] Immature granulocytes/100 WBC (Bld) 0.400 % 0.0-0.9 [facility] Comment on above: IG% - Immature Granu locytes (promyelocytes, myelocytes and metamyelocytes) > 1% indicates that a LEFT SHIFT is Present. MCH (RBC) [Entitic mass] 30.3 pg 27.0-32.0 [facility] Nucleated RBC/100 WBC (Bld) [Ratio] 0 % 0-5 [facility] MCHC Auto (RBC) [Mass/Vol]Or dered By: Renard Burgos on 04-11-2022 MCHC (RBC) [Mass/Vol] 33.0 g/dL 32-36 [facility] Platelets bldOrdered By: Lyubov Burgos on 04-11-2022 Platelets (Bld) [#/Vol] 191 10*3/uL 150-450 [facility] Absolute lymphocyte countOrd ered By: Renard Burgos on 04-04-2022 Lymphocytes Auto (Unsp spec) [#/Vol] 1.99 10*3/uL 0.83-4.51 [facility] Basophil percentageOrdered B y: Renard Burgos on 04-04-2022 Basophils/100 WBC (Bld) 0.4 % 0-1 [facility] Cholesterol [Mass/Vol] 158 mg/dL <200 [facility] Comment on above: <200 mg/dL Desirable 200-240 mg/dL Borderline >240 mg/dL High Risk Eosinophils/100 WBC (Bld) 0.4 % 0-5 [facility] Neutrophils (Bld) [#/Vol] 4.9 10*3/uL 2.0-7.7 [facility] Neutrophils/100 WBC (Bld) 64.2 % 47-70 [facility] Triglyceride [Mass/Vol] 259 mg/dL <199 [facility] Comment on above: The drugs N-Acetylcy steine and Metamizole may falsely depress this assay.Serum Triglycerides Reference Interval Normal <150 mg/dL Borderline high 150 - 199 mg/dL High 200 - 499 mg/dL Very High > or = 500 mg/dL WBC (Bld) [#/Vol] 7.7 10*3/uL 4.4-11.0 [facility] Blood erythrocytes count (nu mber/volume)Ordered By: Renard Burgos on 04-04-2022 RBC (Bld) [#/Vol] 4.63 10*6/uL 4.6-6.2 [facility] Blood hemoglobin measurement (mass/volume)Ordered By: Renard Burgos on 04-04-2022 Hemoglobin (Bld) [Mass/Vol] 14.1 g/dL 13.0-16.5 [facility] Blood lymphocytes/100 leukoc ytesOrdered By: Renard Burgos on 04-04-2022 Lymphocytes/100 WBC (Bld) 25.9 % 19-41 [facility] Blood monocytes/100 leukocyt esOrdered By: Renard Burgos on 04-04-2022 Monocytes/100 WBC (Bld) 8.6 % 0-10 [facility] Blood platelet mean volumeOr dered By: Renard Burgos on 04-04-2022 Platelet mean volume (Bld) [Entitic vol] 11.3 fL 6.2-12.0 [facility] Determination of erythrocyte mean corpuscular volume (MCV)Ordered By: Renard Burgos on 04-04-2022 MCV (RBC) [Entitic vol] 90.7 fL 80-94 [facility] Hematocrit Auto (Bld) [Volum e fraction]Ordered By: Renard Burgos on 04-04-2022 Hematocrit (Bld) [Volume fraction] 42.0 % 40-54 [facility] - Hematology and Cell countsOrdered By: Renard Burgos on 04-04-2022 Erythrocyte distribution width (RBC) [Entitic vol] 41.3 fL 35.1-43.9 [facility] Erythrocyte distribution width (RBC) [Ratio] 12.4 % 11.6-14.6 [facility] Immature granulocytes/100 WBC (Bld) 0.500 % 0.0-0.9 [facility] Comment on above: IG% - Immature Granu locytes (promyelocytes, myelocytes and metamyelocytes) > 1% indicates that a LEFT SHIFT is Present. MCH (RBC) [Entitic mass] 30.5 pg 27.0-32.0 [facility] Nucleated RBC/100 WBC (Bld) [Ratio] 0 % 0-5 [facility] MCHC Auto (RBC) [Mass/Vol]Or dered By: Renard Burgos on 04-04-2022 MCHC (RBC) [Mass/Vol] 33.6 g/dL 32-36 [facility] Platelets bldOrdered By: Lyubov Burgos on 04-04-2022 Platelets (Bld) [#/Vol] 174 10*3/uL 150-450 [facility] Serum or plasma cholesterol in HDL measurement (mass/volume)Ordered By: Renard Burgos on 04-04-2022 Cholesterol in HDL [Mass/Vol] 26 mg/dL >40 [facility] Comment on above: The drugs N-Acetylcy steine and Metamizole may falsely depress this assay. Reference Range HDL <40 mg/dL Low HDL Cholesterol HDL >or= 60 mg/dL High HDL Cholesterol Serum or plasma cholesterol in VLDL measurement (mass/volume)Ordered By: Renard Burgos on 04-04-2022 Cholesterol in VLDL [Mass/Vol] 52 mg/dL 5-40 [facility] Serum or plasma low density lipoprotein (LDL) cholesterol measurement (mass/volume)Ordered By: Renard Burgos on 04-04-2022 Cholesterol in LDL [Mass/Vol] 80 mg/dL 0-130 [facility] Absolute lymphocyte countOrd ered By: Renard Burgos on 03-28-2022 Lymphocytes Auto (Unsp spec) [#/Vol] 2.25 10*3/uL 0.83-4.51 [facility] Basophil percentageOrdered B y: Renard Burgos on 03-28-2022 Basophils/100 WBC (Bld) 0.6 % 0-1 [facility] Eosinophils/100 WBC (Bld) 0.5 % 0-5 [facility] Neutrophils (Bld) [#/Vol] 4.8 10*3/uL 2.0-7.7 [facility] Neutrophils/100 WBC (Bld) 60.5 % 47-70 [facility] WBC (Bld) [#/Vol] 8.0 10*3/uL 4.4-11.0 [facility] Blood erythrocytes count (nu mber/volume)Ordered By: Renard Burgos on 03-28-2022 RBC (Bld) [#/Vol] 4.69 10*6/uL 4.6-6.2 [facility] Blood hemoglobin measurement (mass/volume)Ordered By: Renard Burgos on 03-28-2022 Hemoglobin (Bld) [Mass/Vol] 14.4 g/dL 13.0-16.5 [facility] Blood lymphocytes/100 leukoc ytesOrdered By: Renard Burgos on 03-28-2022 Lymphocytes/100 WBC (Bld) 28.1 % 19-41 [facility] Blood monocytes/100 leukocyt esOrdered By: Renard Burgos on 03-28-2022 Monocytes/100 WBC (Bld) 9.8 % 0-10 [facility] Blood platelet mean volumeOr dered By: Renard Burgos on 03-28-2022 Platelet mean volume (Bld) [Entitic vol] 10.8 fL 6.2-12.0 [facility] Determination of erythrocyte mean corpuscular volume (MCV)Ordered By: Renard Burgos on 03-28-2022 MCV (RBC) [Entitic vol] 92.1 fL 80-94 [facility] Hematocrit Auto (Bld) [Volum e fraction]Ordered By: Renard Burgos on 03-28-2022 Hematocrit (Bld) [Volume fraction] 43.2 % 40-54 [facility] - Hematology and Cell countsOrdered By: Renard Burgos on 03-28-2022 Erythrocyte distribution width (RBC) [Entitic vol] 42.0 fL 35.1-43.9 [facility] Erythrocyte distribution width (RBC) [Ratio] 12.5 % 11.6-14.6 [facility] Immature granulocytes/100 WBC (Bld) 0.500 % 0.0-0.9 [facility] Comment on above: IG% - Immature Granu locytes (promyelocytes, myelocytes and metamyelocytes) > 1% indicates that a LEFT SHIFT is Present. MCH (RBC) [Entitic mass] 30.7 pg 27.0-32.0 [facility] Nucleated RBC/100 WBC (Bld) [Ratio] 0 % 0-5 [facility] MCHC Auto (RBC) [Mass/Vol]Or dered By: Renard Burgos on 03-28-2022 MCHC (RBC) [Mass/Vol] 33.3 g/dL 32-36 [facility] Platelets bldOrdered By: Lyubov Burgos on 03-28-2022 Platelets (Bld) [#/Vol] 207 10*3/uL 150-450 [facility] Absolute lymphocyte countOrd ered By: Renard Burgos on 03-21-2022 Lymphocytes Auto (Unsp spec) [#/Vol] 1.98 10*3/uL 0.83-4.51 [facility] Basophil percentageOrdered B y: Renard Burgos on 03-21-2022 Basophils/100 WBC (Bld) 0.5 % 0-1 [facility] Eosinophils/100 WBC (Bld) 0.5 % 0-5 [facility] Neutrophils (Bld) [#/Vol] 4.9 10*3/uL 2.0-7.7 [facility] Neutrophils/100 WBC (Bld) 63.6 % 47-70 [facility] WBC (Bld) [#/Vol] 7.7 10*3/uL 4.4-11.0 [facility] Blood erythrocytes count (nu mber/volume)Ordered By: Renard Burgos on 03-21-2022 RBC (Bld) [#/Vol] 4.82 10*6/uL 4.6-6.2 [facility] Blood hemoglobin measurement (mass/volume)Ordered By: Renard Burgos on 03-21-2022 Hemoglobin (Bld) [Mass/Vol] 14.9 g/dL 13.0-16.5 [facility] Blood lymphocytes/100 leukoc ytesOrdered By: Renard Burgos on 03-21-2022 Lymphocytes/100 WBC (Bld) 25.7 % 19-41 [facility] Blood monocytes/100 leukocyt esOrdered By: Renard Burgos on 03-21-2022 Monocytes/100 WBC (Bld) 9.3 % 0-10 [facility] Blood platelet mean volumeOr dered By: Renard Burgos on 03-21-2022 Platelet mean volume (Bld) [Entitic vol] 10.8 fL 6.2-12.0 [facility] Determination of erythrocyte mean corpuscular volume (MCV)Ordered By: Renard Burgos on 03-21-2022 MCV (RBC) [Entitic vol] 90.7 fL 80-94 [facility] Hematocrit Auto (Bld) [Volum e fraction]Ordered By: Renard Burgos on 03-21-2022 Hematocrit (Bld) [Volume fraction] 43.7 % 40-54 [facility] - Hematology and Cell countsOrdered By: Renard Burgos on 03-21-2022 Erythrocyte distribution width (RBC) [Entitic vol] 40.8 fL 35.1-43.9 [facility] Erythrocyte distribution width (RBC) [Ratio] 12.4 % 11.6-14.6 [facility] Immature granulocytes/100 WBC (Bld) 0.400 % 0.0-0.9 [facility] Comment on above: IG% - Immature Granu locytes (promyelocytes, myelocytes and metamyelocytes) > 1% indicates that a LEFT SHIFT is Present. MCH (RBC) [Entitic mass] 30.9 pg 27.0-32.0 [facility] Nucleated RBC/100 WBC (Bld) [Ratio] 0 % 0-5 [facility] MCHC Auto (RBC) [Mass/Vol]Or dered By: Renard Burgos on 03-21-2022 MCHC (RBC) [Mass/Vol] 34.1 g/dL 32-36 [facility] Platelets bldOrdered By: Pet lizy Loretta on 03-21-2022 Platelets (Bld) [#/Vol] 186 10*3/uL 150-450 [facility] Absolute lymphocyte countOrd ered By: Renard Burgos on 03-14-2022 Lymphocytes Auto (Unsp spec) [#/Vol] 2.18 10*3/uL 0.83-4.51 [facility] Basophil percentageOrdered B y: Renard Burgos on 03-14-2022 Basophils/100 WBC (Bld) 0.4 % 0-1 [facility] Eosinophils/100 WBC (Bld) 0.6 % 0-5 [facility] Neutrophils (Bld) [#/Vol] 4.3 10*3/uL 2.0-7.7 [facility] Neutrophils/100 WBC (Bld) 58.8 % 47-70 [facility] WBC (Bld) [#/Vol] 7.3 10*3/uL 4.4-11.0 [facility] Blood erythrocytes count (nu mber/volume)Ordered By: Renard Burgos on 03-14-2022 RBC (Bld) [#/Vol] 4.80 10*6/uL 4.6-6.2 [facility] Blood hemoglobin measurement (mass/volume)Ordered By: Renard Burgos on 03-14-2022 Hemoglobin (Bld) [Mass/Vol] 14.5 g/dL 13.0-16.5 [facility] Blood lymphocytes/100 leukoc ytesOrdered By: Renard Burgos on 03-14-2022 Lymphocytes/100 WBC (Bld) 30.1 % 19-41 [facility] Blood monocytes/100 leukocyt esOrdered By: Renard Burgos on 03-14-2022 Monocytes/100 WBC (Bld) 9.5 % 0-10 [facility] Blood platelet mean volumeOr dered By: Renard Burgos on 03-14-2022 Platelet mean volume (Bld) [Entitic vol] 11.0 fL 6.2-12.0 [facility] Determination of erythrocyte mean corpuscular volume (MCV)Ordered By: Renard Burgos on 03-14-2022 MCV (RBC) [Entitic vol] 91.5 fL 80-94 [facility] Hematocrit Auto (Bld) [Volum e fraction]Ordered By: Renard Burgos on 03-14-2022 Hematocrit (Bld) [Volume fraction] 43.9 % 40-54 [facility] - Hematology and Cell countsOrdered By: Renard Burgos on 03-14-2022 Erythrocyte distribution width (RBC) [Entitic vol] 41.1 fL 35.1-43.9 [facility] Erythrocyte distribution width (RBC) [Ratio] 12.4 % 11.6-14.6 [facility] Immature granulocytes/100 WBC (Bld) 0.600 % 0.0-0.9 [facility] Comment on above: IG% - Immature Granu locytes (promyelocytes, myelocytes and metamyelocytes) > 1% indicates that a LEFT SHIFT is Present. MCH (RBC) [Entitic mass] 30.2 pg 27.0-32.0 [facility] Nucleated RBC/100 WBC (Bld) [Ratio] 0 % 0-5 [facility] MCHC Auto (RBC) [Mass/Vol]Or dered By: Renard Burgos on 03-14-2022 MCHC (RBC) [Mass/Vol] 33.0 g/dL 32-36 [facility] Platelets bldOrdered By: Lyubov Burgos on 03-14-2022 Platelets (Bld) [#/Vol] 201 10*3/uL 150-450 [facility] Absolute lymphocyte countOrd ered By: Renard Burgos on 2022 Lymphocytes Auto (Unsp spec) [#/Vol] 1.97 10*3/uL 0.83-4.51 [facility] Basophil percentageOrdered B y: Renard Burgos on 2022 Basophils/100 WBC (Bld) 0.6 % 0-1 [facility] Eosinophils/100 WBC (Bld) 0.4 % 0-5 [facility] Neutrophils (Bld) [#/Vol] 4.3 10*3/uL 2.0-7.7 [facility] Neutrophils/100 WBC (Bld) 61.3 % 47-70 [facility] WBC (Bld) [#/Vol] 7.0 10*3/uL 4.4-11.0 [facility] Blood erythrocytes count (nu mber/volume)Ordered By: Renard Burgos on 2022 RBC (Bld) [#/Vol] 4.78 10*6/uL 4.6-6.2 [facility] Blood hemoglobin measurement (mass/volume)Ordered By: Renard Burgos on 2022 Hemoglobin (Bld) [Mass/Vol] 14.4 g/dL 13.0-16.5 [facility] Blood lymphocytes/100 leukoc ytesOrdered By: Renard Burgos on 2022 Lymphocytes/100 WBC (Bld) 28.3 % 19-41 [facility] Blood monocytes/100 leukocyt esOrdered By: Renard Burgos on 2022 Monocytes/100 WBC (Bld) 9.1 % 0-10 [facility] Blood platelet mean volumeOr dered By: Renard Burgos on 2022 Platelet mean volume (Bld) [Entitic vol] 11.1 fL 6.2-12.0 [facility] Determination of erythrocyte mean corpuscular volume (MCV)Ordered By: Renard Burgos on 2022 MCV (RBC) [Entitic vol] 91.2 fL 80-94 [facility] Hematocrit Auto (Bld) [Volum e fraction]Ordered By: Renard Burgos on 2022 Hematocrit (Bld) [Volume fraction] 43.6 % 40-54 [facility] - Hematology and Cell countsOrdered By: Renard Burgos on 2022 Erythrocyte distribution width (RBC) [Entitic vol] 42.0 fL 35.1-43.9 [facility] Erythrocyte distribution width (RBC) [Ratio] 12.6 % 11.6-14.6 [facility] Immature granulocytes/100 WBC (Bld) 0.300 % 0.0-0.9 [facility] Comment on above: IG% - Immature Granu locytes (promyelocytes, myelocytes and metamyelocytes) > 1% indicates that a LEFT SHIFT is Present. MCH (RBC) [Entitic mass] 30.1 pg 27.0-32.0 [facility] Nucleated RBC/100 WBC (Bld) [Ratio] 0 % 0-5 [facility] MCHC Auto (RBC) [Mass/Vol]Or dered By: Renard Burgos on 2022 MCHC (RBC) [Mass/Vol] 33.0 g/dL 32-36 [facility] Platelets bldOrdered By: Lyubov Burgos on 2022 Platelets (Bld) [#/Vol] 210 10*3/uL 150-450 [facility] Absolute lymphocyte countOrd ered By: Renard Burgos on 02-28-2022 Lymphocytes Auto (Unsp spec) [#/Vol] 1.85 10*3/uL 0.83-4.51 [facility] Basophil percentageOrdered B y: Renard Burgos on 02-28-2022 Basophils/100 WBC (Bld) 0.4 % 0-1 [facility] Eosinophils/100 WBC (Bld) 0.4 % 0-5 [facility] Neutrophils (Bld) [#/Vol] 5.3 10*3/uL 2.0-7.7 [facility] Neutrophils/100 WBC (Bld) 67.8 % 47-70 [facility] WBC (Bld) [#/Vol] 7.8 10*3/uL 4.4-11.0 [facility] Blood erythrocytes count (nu mber/volume)Ordered By: Renard Burgos on 02-28-2022 RBC (Bld) [#/Vol] 4.58 10*6/uL 4.6-6.2 [facility] Blood hemoglobin measurement (mass/volume)Ordered By: Renard Burgos on 02-28-2022 Hemoglobin (Bld) [Mass/Vol] 14.3 g/dL 13.0-16.5 [facility] Blood lymphocytes/100 leukoc ytesOrdered By: Renard Burgos on 02-28-2022 Lymphocytes/100 WBC (Bld) 23.8 % 19-41 [facility] Blood monocytes/100 leukocyt esOrdered By: Renard Burgos on 02-28-2022 Monocytes/100 WBC (Bld) 7.2 % 0-10 [facility] Blood platelet mean volumeOr dered By: Renard Burgos on 02-28-2022 Platelet mean volume (Bld) [Entitic vol] 10.8 fL 6.2-12.0 [facility] Determination of erythrocyte mean corpuscular volume (MCV)Ordered By: Renard Burgos on 02-28-2022 MCV (RBC) [Entitic vol] 91.5 fL 80-94 [facility] Hematocrit Auto (Bld) [Volum e fraction]Ordered By: Renard Burgos on 02-28-2022 Hematocrit (Bld) [Volume fraction] 41.9 % 40-54 [facility] - Hematology and Cell countsOrdered By: Renard Burgos on 02-28-2022 Erythrocyte distribution width (RBC) [Entitic vol] 42.2 fL 35.1-43.9 [facility] Erythrocyte distribution width (RBC) [Ratio] 12.7 % 11.6-14.6 [facility] Immature granulocytes/100 WBC (Bld) 0.400 % 0.0-0.9 [facility] Comment on above: IG% - Immature Granu locytes (promyelocytes, myelocytes and metamyelocytes) > 1% indicates that a LEFT SHIFT is Present. MCH (RBC) [Entitic mass] 31.2 pg 27.0-32.0 [facility] Nucleated RBC/100 WBC (Bld) [Ratio] 0 % 0-5 [facility] MCHC Auto (RBC) [Mass/Vol]Or dered By: Renard Burgos on 02-28-2022 MCHC (RBC) [Mass/Vol] 34.1 g/dL 32-36 [facility] Platelets bldOrdered By: Lyubov Burgos on 02-28-2022 Platelets (Bld) [#/Vol] 202 10*3/uL 150-450 [facility] Absolute lymphocyte countOrd ered By: Renard Burgos on 02-21-2022 Lymphocytes Auto (Unsp spec) [#/Vol] 1.93 10*3/uL 0.83-4.51 [facility] Basophil percentageOrdered B y: Renard Burgos on 02-21-2022 Basophils/100 WBC (Bld) 0.4 % 0-1 [facility] Eosinophils/100 WBC (Bld) 0.4 % 0-5 [facility] Neutrophils (Bld) [#/Vol] 4.6 10*3/uL 2.0-7.7 [facility] Neutrophils/100 WBC (Bld) 63.4 % 47-70 [facility] WBC (Bld) [#/Vol] 7.2 10*3/uL 4.4-11.0 [facility] Blood erythrocytes count (nu mber/volume)Ordered By: Renard Burgos on 02-21-2022 RBC (Bld) [#/Vol] 4.54 10*6/uL 4.6-6.2 [facility] Blood hemoglobin measurement (mass/volume)Ordered By: Renard Burgos on 02-21-2022 Hemoglobin (Bld) [Mass/Vol] 14.1 g/dL 13.0-16.5 [facility] Blood lymphocytes/100 leukoc ytesOrdered By: Renard Burgos on 02-21-2022 Lymphocytes/100 WBC (Bld) 26.7 % 19-41 [facility] Blood monocytes/100 leukocyt esOrdered By: Renard Burgos on 02-21-2022 Monocytes/100 WBC (Bld) 8.8 % 0-10 [facility] Blood platelet mean volumeOr dered By: Renard Burgos on 02-21-2022 Platelet mean volume (Bld) [Entitic vol] 11.1 fL 6.2-12.0 [facility] Determination of erythrocyte mean corpuscular volume (MCV)Ordered By: Renard Burgos on 02-21-2022 MCV (RBC) [Entitic vol] 91.4 fL 80-94 [facility] Hematocrit Auto (Bld) [Volum e fraction]Ordered By: Renard Burgos on 02-21-2022 Hematocrit (Bld) [Volume fraction] 41.5 % 40-54 [facility] - Hematology and Cell countsOrdered By: Renard Burgos on 02-21-2022 Erythrocyte distribution width (RBC) [Entitic vol] 41.9 fL 35.1-43.9 [facility] Erythrocyte distribution width (RBC) [Ratio] 12.6 % 11.6-14.6 [facility] Immature granulocytes/100 WBC (Bld) 0.300 % 0.0-0.9 [facility] Comment on above: IG% - Immature Granu locytes (promyelocytes, myelocytes and metamyelocytes) > 1% indicates that a LEFT SHIFT is Present. MCH (RBC) [Entitic mass] 31.1 pg 27.0-32.0 [facility] Nucleated RBC/100 WBC (Bld) [Ratio] 0 % 0-5 [facility] MCHC Auto (RBC) [Mass/Vol]Or dered By: Renard Burgos on 02-21-2022 MCHC (RBC) [Mass/Vol] 34.0 g/dL 32-36 [facility] Platelets bldOrdered By: [facility] on 02-21-2022 Platelets (Bld) [#/Vol] 189 10*3/uL 150-450 [facility] Absolute lymphocyte countOrd ered By: Renard Burgos on 02-14-2022 Lymphocytes Auto (Unsp spec) [#/Vol] 2.00 10*3/uL 0.83-4.51 [facility] Basophil percentageOrdered B y: Renard Burgos on 02-14-2022 Basophils/100 WBC (Bld) 0.6 % 0-1 [facility] Eosinophils/100 WBC (Bld) 0.3 % 0-5 [facility] Neutrophils (Bld) [#/Vol] 6.4 10*3/uL 2.0-7.7 [facility] Neutrophils/100 WBC (Bld) 69.5 % 47-70 [facility] WBC (Bld) [#/Vol] 9.3 10*3/uL 4.4-11.0 [facility] Blood erythrocytes count (nu mber/volume)Ordered By: Renard Burgos on 02-14-2022 RBC (Bld) [#/Vol] 4.65 10*6/uL 4.6-6.2 [facility] Blood hemoglobin measurement (mass/volume)Ordered By: Renard Burgos on 02-14-2022 Hemoglobin (Bld) [Mass/Vol] 14.6 g/dL 13.0-16.5 [facility] Blood lymphocytes/100 leukoc ytesOrdered By: Renard Burgos on 02-14-2022 Lymphocytes/100 WBC (Bld) 21.6 % 19-41 [facility] Blood monocytes/100 leukocyt esOrdered By: Renard Burgos on 02-14-2022 Monocytes/100 WBC (Bld) 7.6 % 0-10 [facility] Blood platelet mean volumeOr dered By: Renard Burgos on 02-14-2022 Platelet mean volume (Bld) [Entitic vol] 11.1 fL 6.2-12.0 [facility] Determination of erythrocyte mean corpuscular volume (MCV)Ordered By: Renard Burgos on 02-14-2022 MCV (RBC) [Entitic vol] 91.8 fL 80-94 [facility] Hematocrit Auto (Bld) [Volum e fraction]Ordered By: Renard Burgos on 02-14-2022 Hematocrit (Bld) [Volume fraction] 42.7 % 40-54 [facility] - Hematology and Cell countsOrdered By: Renard Burgos on 02-14-2022 Erythrocyte distribution width (RBC) [Entitic vol] 43.7 fL 35.1-43.9 [facility] Erythrocyte distribution width (RBC) [Ratio] 13.0 % 11.6-14.6 [facility] Immature granulocytes/100 WBC (Bld) 0.400 % 0.0-0.9 [facility] Comment on above: IG% - Immature Granu locytes (promyelocytes, myelocytes and metamyelocytes) > 1% indicates that a LEFT SHIFT is Present. MCH (RBC) [Entitic mass] 31.4 pg 27.0-32.0 [facility] Nucleated RBC/100 WBC (Bld) [Ratio] 0 % 0-5 [facility] MCHC Auto (RBC) [Mass/Vol]Or dered By: Renard Burgos on 02-14-2022 MCHC (RBC) [Mass/Vol] 34.2 g/dL 32-36 [facility] Platelets bldOrdered By: Lyubov Burgos on 02-14-2022 Platelets (Bld) [#/Vol] 187 10*3/uL 150-450 [facility] Absolute lymphocyte countOrd ered By: Renard Burgos on 02-07-2022 Lymphocytes Auto (Unsp spec) [#/Vol] 1.97 10*3/uL 0.83-4.51 [facility] Basophil percentageOrdered B y: Renard Burgos on 02-07-2022 Basophils/100 WBC (Bld) 0.4 % 0-1 [facility] Eosinophils/100 WBC (Bld) 0.3 % 0-5 [facility] Neutrophils (Bld) [#/Vol] 4.2 10*3/uL 2.0-7.7 [facility] Neutrophils/100 WBC (Bld) 61.8 % 47-70 [facility] WBC (Bld) [#/Vol] 6.8 10*3/uL 4.4-11.0 [facility] Blood erythrocytes count (nu mber/volume)Ordered By: Renard Burgos on 02-07-2022 RBC (Bld) [#/Vol] 4.86 10*6/uL 4.6-6.2 [facility] Blood hemoglobin measurement (mass/volume)Ordered By: Renard Burgos on 02-07-2022 Hemoglobin (Bld) [Mass/Vol] 15.4 g/dL 13.0-16.5 [facility] Blood lymphocytes/100 leukoc ytesOrdered By: Renard Burgos on 02-07-2022 Lymphocytes/100 WBC (Bld) 29.1 % 19-41 [facility] Blood monocytes/100 leukocyt esOrdered By: Renard Burgos on 02-07-2022 Monocytes/100 WBC (Bld) 8.1 % 0-10 [facility] Blood platelet mean volumeOr dered By: Renard Burgos on 02-07-2022 Platelet mean volume (Bld) [Entitic vol] 11.0 fL 6.2-12.0 [facility] Determination of erythrocyte mean corpuscular volume (MCV)Ordered By: Renard Burgos on 02-07-2022 MCV (RBC) [Entitic vol] 92.6 fL 80-94 [facility] Hematocrit Auto (Bld) [Volum e fraction]Ordered By: Renard Burgos on 02-07-2022 Hematocrit (Bld) [Volume fraction] 45.0 % 40-54 [facility] - Hematology and Cell countsOrdered By: Renard Burgos on 02-07-2022 Erythrocyte distribution width (RBC) [Entitic vol] 43.1 fL 35.1-43.9 [facility] Erythrocyte distribution width (RBC) [Ratio] 12.7 % 11.6-14.6 [facility] Immature granulocytes/100 WBC (Bld) 0.300 % 0.0-0.9 [facility] Comment on above: IG% - Immature Granu locytes (promyelocytes, myelocytes and metamyelocytes) > 1% indicates that a LEFT SHIFT is Present. MCH (RBC) [Entitic mass] 31.7 pg 27.0-32.0 [facility] Nucleated RBC/100 WBC (Bld) [Ratio] 0 % 0-5 [facility] MCHC Auto (RBC) [Mass/Vol]Or dered By: Renard Burgos on 02-07-2022 MCHC (RBC) [Mass/Vol] 34.2 g/dL 32-36 [facility] Platelets bldOrdered By: Lyubov Burgos on 02-07-2022 Platelets (Bld) [#/Vol] 196 10*3/uL 150-450 [facility] Absolute lymphocyte countOrd ered By: Renard Burgos on 01-31-2022 Lymphocytes Auto (Unsp spec) [#/Vol] 2.19 10*3/uL 0.83-4.51 [facility] Basophil percentageOrdered B y: Renard Burgos on 01-31-2022 Basophils/100 WBC (Bld) 0.3 % 0-1 [facility] Eosinophils/100 WBC (Bld) 0.2 % 0-5 [facility] Neutrophils (Bld) [#/Vol] 5.7 10*3/uL 2.0-7.7 [facility] Neutrophils/100 WBC (Bld) 64.9 % 47-70 [facility] WBC (Bld) [#/Vol] 8.8 10*3/uL 4.4-11.0 [facility] Blood erythrocytes count (nu mber/volume)Ordered By: Renard Burgos on 01-31-2022 RBC (Bld) [#/Vol] 4.81 10*6/uL 4.6-6.2 [facility] Blood hemoglobin measurement (mass/volume)Ordered By: Renard Burgos on 01-31-2022 Hemoglobin (Bld) [Mass/Vol] 14.9 g/dL 13.0-16.5 [facility] Blood lymphocytes/100 leukoc ytesOrdered By: Renard Burgos on 01-31-2022 Lymphocytes/100 WBC (Bld) 24.9 % 19-41 [facility] Blood monocytes/100 leukocyt esOrdered By: Renard Burgos on 01-31-2022 Monocytes/100 WBC (Bld) 9.2 % 0-10 [facility] Blood platelet mean volumeOr dered By: Renard Burgos on 01-31-2022 Platelet mean volume (Bld) [Entitic vol] 11.0 fL 6.2-12.0 [facility] Determination of erythrocyte mean corpuscular volume (MCV)Ordered By: Renard Burgos on 01-31-2022 MCV (RBC) [Entitic vol] 92.9 fL 80-94 [facility] Hematocrit Auto (Bld) [Volum e fraction]Ordered By: Renard Burgos on 01-31-2022 Hematocrit (Bld) [Volume fraction] 44.7 % 40-54 [facility] - Hematology and Cell countsOrdered By: Renard Burgos on 01-31-2022 Erythrocyte distribution width (RBC) [Entitic vol] 42.9 fL 35.1-43.9 [facility] Erythrocyte distribution width (RBC) [Ratio] 12.6 % 11.6-14.6 [facility] Immature granulocytes/100 WBC (Bld) 0.500 % 0.0-0.9 [facility] Comment on above: IG% - Immature Granu locytes (promyelocytes, myelocytes and metamyelocytes) > 1% indicates that a LEFT SHIFT is Present. MCH (RBC) [Entitic mass] 31.0 pg 27.0-32.0 [facility] Nucleated RBC/100 WBC (Bld) [Ratio] 0 % 0-5 [facility] MCHC Auto (RBC) [Mass/Vol]Or dered By: Renard Burgos on 01-31-2022 MCHC (RBC) [Mass/Vol] 33.3 g/dL 32-36 [facility] Platelets bldOrdered By: Lyubov Burgos on 01-31-2022 Platelets (Bld) [#/Vol] 204 10*3/uL 150-450 [facility] Absolute lymphocyte countOrd ered By: Renard Burgos on 01-24-2022 Lymphocytes Auto (Unsp spec) [#/Vol] 1.82 10*3/uL 0.83-4.51 [facility] Basophil percentageOrdered B y: Renard Burgos on 01-24-2022 Basophils/100 WBC (Bld) 0.3 % 0-1 [facility] Eosinophils/100 WBC (Bld) 0.3 % 0-5 [facility] Neutrophils (Bld) [#/Vol] 6.1 10*3/uL 2.0-7.7 [facility] Neutrophils/100 WBC (Bld) 69.9 % 47-70 [facility] WBC (Bld) [#/Vol] 8.7 10*3/uL 4.4-11.0 [facility] Blood erythrocytes count (nu mber/volume)Ordered By: Renard Burgos on 01-24-2022 RBC (Bld) [#/Vol] 4.74 10*6/uL 4.6-6.2 [facility] Blood hemoglobin measurement (mass/volume)Ordered By: Renard Burgos on 01-24-2022 Hemoglobin (Bld) [Mass/Vol] 14.5 g/dL 13.0-16.5 [facility] Blood lymphocytes/100 leukoc ytesOrdered By: Renard Burgos on 01-24-2022 Lymphocytes/100 WBC (Bld) 20.9 % 19-41 [facility] Blood monocytes/100 leukocyt esOrdered By: Renard Burgos on 01-24-2022 Monocytes/100 WBC (Bld) 8.4 % 0-10 [facility] Blood platelet mean volumeOr dered By: Renard Burgos on 01-24-2022 Platelet mean volume (Bld) [Entitic vol] 10.9 fL 6.2-12.0 [facility] Determination of erythrocyte mean corpuscular volume (MCV)Ordered By: Renard Burgos on 01-24-2022 MCV (RBC) [Entitic vol] 92.0 fL 80-94 [facility] Hematocrit Auto (Bld) [Volum e fraction]Ordered By: Renard Burgos on 01-24-2022 Hematocrit (Bld) [Volume fraction] 43.6 % 40-54 [facility] - Hematology and Cell countsOrdered By: Renard Burgos on 01-24-2022 Erythrocyte distribution width (RBC) [Entitic vol] 42.3 fL 35.1-43.9 [facility] Erythrocyte distribution width (RBC) [Ratio] 12.5 % 11.6-14.6 [facility] Immature granulocytes/100 WBC (Bld) 0.200 % 0.0-0.9 [facility] Comment on above: IG% - Immature Granu locytes (promyelocytes, myelocytes and metamyelocytes) > 1% indicates that a LEFT SHIFT is Present. MCH (RBC) [Entitic mass] 30.6 pg 27.0-32.0 [facility] Nucleated RBC/100 WBC (Bld) [Ratio] 0 % 0-5 [facility] MCHC Auto (RBC) [Mass/Vol]Or dered By: Renard Burgos on 01-24-2022 MCHC (RBC) [Mass/Vol] 33.3 g/dL 32-36 [facility] Platelets bldOrdered By: Lyubov Burgos on 01-24-2022 Platelets (Bld) [#/Vol] 192 10*3/uL 150-450 [facility] Absolute lymphocyte counton 01-17-2022 Lymphocytes Auto (Unsp spec) [#/Vol] 1.89 10*3/uL 0.83-4.51 [facility] Work Phone: [phone] Basophil percentageon 2021 Basophils/100 WBC (Bld) 0.4 % 0-1 [facility] Work Phone: Eosinophils/100 WBC (Bld) 0.3 % 0-5 [facility] Work Phone: Neutrophils (Bld) [#/Vol] 4.4 10*3/uL 2.0-7.7 [facility] Work Phone: Neutrophils/100 WBC (Bld) 62.4 % 47-70 [facility] Work Phone: WBC (Bld) [#/Vol] 7.0 10*3/uL 4.4-11.0 [facility] Work Phone: Blood erythrocytes count (nu mber/volume)on 01-17-2022 RBC (Bld) [#/Vol] 4.64 10*6/uL 4.6-6.2 [facility]: Blood hemoglobin measurement (mass/volume)on 01-17-2022 Hemoglobin (Bld) [Mass/Vol] 14.1 g/dL 13.0-16.5 [facility] Work Phone: Blood lymphocytes/100 leukoc yteson 01-17-2022 Lymphocytes/100 WBC (Bld) 27.0 % 19-41 [facility] Work Phone: Blood monocytes/100 leukocyt eson 01-17-2022 Monocytes/100 WBC (Bld) 9.3 % 0-10 [facility] Work Phone: Blood platelet mean volumeon 01-17-2022 Platelet mean volume (Bld) [Entitic vol] 11.1 fL 6.2-12.0 [facility] Work Phone: Determination of erythrocyte mean corpuscular volume (MCV)on 01-17-2022 MCV (RBC) [Entitic vol] 91.8 fL 80-94 [facility] Work Phone: Hematocrit Auto (Bld) [Volum e fraction]on 01-17-2022 Hematocrit (Bld) [Volume fraction] 42.6 % 40-54 [facility] Work Phone: Laboratory - Hematology and Cell countson 01-17-2022 Erythrocyte distribution width (RBC) [Entitic vol] 41.5 fL 35.1-43.9 [facility] Work Phone: Erythrocyte distribution width (RBC) [Ratio] 12.5 % 11.6-14.6 [facility] Work Phone: Immature granulocytes/100 WBC (Bld) 0.600 % 0.0-0.9 [facility] Work Phone: Comment on above: IG% - Immature Granu locytes (promyelocytes, myelocytes and metamyelocytes) > 1% indicates that a LEFT SHIFT is Present. MCH (RBC) [Entitic mass] 30.4 pg 27.0-32.0 [facility] Work Phone: Nucleated RBC/100 WBC (Bld) [Ratio] 0 % 0-5 [facility] Work Phone: MCHC Auto (RBC) [Mass/Vol]on 01-17-2022 MCHC (RBC) [Mass/Vol] 33.1 g/dL 32-36 [facility] Work Phone: Platelets bldon 01-17-2022 Platelets (Bld) [#/Vol] 200 10*3/uL 150-450 [facility] Work Phone: [phone] Absolute lymphocyte counton 01-10-2022 Lymphocytes Auto (Unsp spec) [#/Vol] 2.07 10*3/uL 0.83-4.51 [facility] Work Phone: Basophil percentageon 2021 Basophils/100 WBC (Bld) 0.6 % 0-1 [facility] Work Phone: Eosinophils/100 WBC (Bld) 0.3 % 0-5 [facility] Work Phone: Neutrophils (Bld) [#/Vol] 4.2 10*3/uL 2.0-7.7 [facility] Work Phone: Neutrophils/100 WBC (Bld) 59.2 % 47-70 [facility] Work Phone: WBC (Bld) [#/Vol] 7.0 10*3/uL 4.4-11.0 [facility] Blood erythrocytes count (nu mber/volume)on 01-10-2022 RBC (Bld) [#/Vol] 4.83 10*6/uL 4.6-6.2 [facility] Work Phone: Blood hemoglobin measurement (mass/volume)on 01-10-2022 Hemoglobin (Bld) [Mass/Vol] 14.8 g/dL 13.0-16.5 [facility] Work Phone: Blood lymphocytes/100 leukoc yteson 01-10-2022 Lymphocytes/100 WBC (Bld) 29.5 % 19-41 [facility] Work Phone: Blood monocytes/100 leukocyt eson 01-10-2022 Monocytes/100 WBC (Bld) 10.1 % 0-10 [facility] Work Phone: Blood platelet mean volumeon 01-10-2022 Platelet mean volume (Bld) [Entitic vol] 10.8 fL 6.2-12.0 [facility] Work Phone: Determination of erythrocyte mean corpuscular volume (MCV)on 01-10-2022 MCV (RBC) [Entitic vol] 97.5 fL 80-94 [facility] Work Phone: Hematocrit Auto (Bld) [Volum e fraction]on 01-10-2022 Hematocrit (Bld) [Volume fraction] 47.1 % 40-54 [facility] Work Phone: Laboratory - Hematology and Cell countson 01-10-2022 Erythrocyte distribution width (RBC) [Entitic vol] 44.9 fL 35.1-43.9 [facility] Work Phone: Erythrocyte distribution width (RBC) [Ratio] 12.7 % 11.6-14.6 [facility] Work Phone: Immature granulocytes/100 WBC (Bld) 0.300 % 0.0-0.9 [facility] Work Phone: Comment on above: IG% - Immature Granu locytes (promyelocytes, myelocytes and metamyelocytes) > 1% indicates that a LEFT SHIFT is Present. MCH (RBC) [Entitic mass] 30.6 pg 27.0-32.0 [facility] Work Phone: Nucleated RBC/100 WBC (Bld) [Ratio] 0 % 0-5 [facility] Work Phone: MCHC Auto (RBC) [Mass/Vol]on 01-10-2022 MCHC (RBC) [Mass/Vol] 31.4 g/dL 32-36 [facility] Work Phone: [phone] Platelets bldon 01-10-2022 Platelets (Bld) [#/Vol] 169 10*3/uL 150-450 [facility] Work Phone: [phone] Absolute lymphocyte counton 01-04-2022 Lymphocytes Auto (Unsp spec) [#/Vol] 1.84 10*3/uL 0.83-4.51 [facility] Work Phone: Basophil percentageon 2021 Basophils/100 WBC (Bld) 0.3 % 0-1 [facility] Work Phone: Eosinophils/100 WBC (Bld) 0.3 % 0-5 [facility] Work Phone: Neutrophils (Bld) [#/Vol] 4.8 10*3/uL 2.0-7.7 [facility] Work Phone: Neutrophils/100 WBC (Bld) 64.8 % 47-70 [facility] Work Phone: [phone] WBC (Bld) [#/Vol] 7.4 10*3/uL 4.4-11.0 [facility] Work Phone: Blood erythrocytes count (nu mber/volume)on 01-04-2022 RBC (Bld) [#/Vol] 4.67 10*6/uL 4.6-6.2 [facility] Work Phone: Blood hemoglobin measurement (mass/volume)on 01-04-2022 Hemoglobin (Bld) [Mass/Vol] 14.2 g/dL 13.0-16.5 [facility] Work Phone: [phone] Blood lymphocytes/100 leukoc yteson 01-04-2022 Lymphocytes/100 WBC (Bld) 25.0 % 19-41 [facility] Work Phone: Blood monocytes/100 leukocyt eson 01-04-2022 Monocytes/100 WBC (Bld) 9.1 % 0-10 [facility] Work Phone: Blood platelet mean volumeon 01-04-2022 Platelet mean volume (Bld) [Entitic vol] 11.0 fL 6.2-12.0 [facility] Work Phone: Determination of erythrocyte mean corpuscular volume (MCV)on 01-04-2022 MCV (RBC) [Entitic vol] 91.0 fL 80-94 [facility] Work Phone: Hematocrit Auto (Bld) [Volum e fraction]on 01-04-2022 Hematocrit (Bld) [Volume fraction] 42.5 % 40-54 [facility] Work Phone: Laboratory - Hematology and Cell countson 01-04-2022 Erythrocyte distribution width (RBC) [Entitic vol] 41.4 fL 35.1-43.9 [facility] Work Phone: Erythrocyte distribution width (RBC) [Ratio] 12.7 % 11.6-14.6 [facility] Work Phone: Immature granulocytes/100 WBC (Bld) 0.500 % 0.0-0.9 [facility] Work Phone: Comment on above: IG% - Immature Granu locytes (promyelocytes, myelocytes and metamyelocytes) > 1% indicates that a LEFT SHIFT is Present. MCH (RBC) [Entitic mass] 30.4 pg 27.0-32.0 [facility] Work Phone: Nucleated RBC/100 WBC (Bld) [Ratio] 0 % 0-5 [facility] Work Phone: MCHC Auto (RBC) [Mass/Vol]on 01-04-2022 MCHC (RBC) [Mass/Vol] 33.4 g/dL 32-36 [facility]: Platelets bldon 01-04-2022 Platelets (Bld) [#/Vol] 184 10*3/uL 150-450 [facility] Work Phone: Absolute lymphocyte counton 12-27-2021 Lymphocytes Auto (Unsp spec) [#/Vol] 1.79 10*3/uL 0.83-4.51 [facility] Work Phone: Basophil percentageon 2021 Basophils/100 WBC (Bld) 0.4 % 0-1 [facility] Work Phone: [phone] Eosinophils/100 WBC (Bld) 0.4 % 0-5 [facility] Work Phone: Neutrophils (Bld) [#/Vol] 4.9 10*3/uL 2.0-7.7 [facility] Work Phone: Neutrophils/100 WBC (Bld) 65.2 % 47-70 [facility] Work Phone: WBC (Bld) [#/Vol] 7.6 10*3/uL 4.4-11.0 [facility] Work Phone: Blood erythrocytes count (nu mber/volume)on 12-27-2021 RBC (Bld) [#/Vol] 4.66 10*6/uL 4.6-6.2 [facility] Work [facility]: Blood hemoglobin measurement (mass/volume)on 12-27-2021 Hemoglobin (Bld) [Mass/Vol] 14.5 g/dL 13.0-16.5 [facility] Work Phone: Blood lymphocytes/100 leukoc yteson 12-27-2021 Lymphocytes/100 WBC (Bld) 23.6 % 19-41 [facility] Work Phone: [phone] Blood monocytes/100 leukocyt eson 12-27-2021 Monocytes/100 WBC (Bld) 10.0 % 0-10 [facility] Work Phone: Blood platelet mean volumeon 12-27-2021 Platelet mean volume (Bld) [Entitic vol] 10.9 fL 6.2-12.0 [facility] Work Phone: Determination of erythrocyte mean corpuscular volume (MCV)on 12-27-2021 MCV (RBC) [Entitic vol] 91.0 fL 80-94 [facility] Work Phone: Hematocrit Auto (Bld) [Volum e fraction]on 12-27-2021 Hematocrit (Bld) [Volume fraction] 42.4 % 40-54 [facility] Work Phone: Laboratory - Hematology and Cell countson 12-27-2021 Erythrocyte distribution width (RBC) [Entitic vol] 41.2 fL 35.1-43.9 [facility] Work Phone: Erythrocyte distribution width (RBC) [Ratio] 12.6 % 11.6-14.6 [facility] Work Phone: Immature granulocytes/100 WBC (Bld) 0.400 % 0.0-0.9 [facility] Work Phone: Comment on above: IG% - Immature Granu locytes (promyelocytes, myelocytes and metamyelocytes) > 1% indicates that a LEFT SHIFT is Present. MCH (RBC) [Entitic mass] 31.1 pg 27.0-32.0 [facility] Work Phone: Nucleated RBC/100 WBC (Bld) [Ratio] 0 % 0-5 [facility] Work Phone: MCHC Auto (RBC) [Mass/Vol]on 12-27-2021 MCHC (RBC) [Mass/Vol] 34.2 g/dL 32-36 [facility] Work Phone: Platelets bldon 12-27-2021 Platelets (Bld) [#/Vol] 185 10*3/uL 150-450 [facility] Work Phone: Absolute lymphocyte counton 12-20-2021 Lymphocytes Auto (Unsp spec) [#/Vol] 2.02 10*3/uL 0.83-4.51 [facility] Work Phone: [phone] Basophil percentageon 2021 Basophils/100 WBC (Bld) 0.2 % 0-1 [facility] Work Phone: [phone] Eosinophils/100 WBC (Bld) 0.3 % 0-5 [facility] Work Phone: [phone] Neutrophils (Bld) [#/Vol] 3.6 10*3/uL 2.0-7.7 [facility] Work Phone: [phone] Neutrophils/100 WBC (Bld) 57.8 % 47-70 [facility] Work Phone: [phone] WBC (Bld) [#/Vol] 6.1 10*3/uL 4.4-11.0 [facility] Work [facility]: Blood erythrocytes count (nu mber/volume)on 12-20-2021 RBC (Bld) [#/Vol] 4.81 10*6/uL 4.6-6.2 [facility] Work Phone: Blood hemoglobin measurement (mass/volume)on 12-20-2021 Hemoglobin (Bld) [Mass/Vol] 14.8 g/dL 13.0-16.5 [facility] Work Phone: [phone] Blood lymphocytes/100 leukoc yteson 12-20-2021 Lymphocytes/100 WBC (Bld) 32.9 % 19-41 [facility] Work Phone: [phone] Blood monocytes/100 leukocyt eson 12-20-2021 Monocytes/100 WBC (Bld) 8.3 % 0-10 [facility] Work Phone: [phone] Blood platelet adequacy dete ction by light microscopyon 12-20-2021 Platelets LM Ql (Bld) ADEQUATE ADEQ [facility] Work Phone: [phone] Blood platelet mean volumeon 12-20-2021 Platelet mean volume (Bld) [Entitic vol] 11.1 fL 6.2-12.0 [facility] Work Phone: Determination of erythrocyte mean corpuscular volume (MCV)on 12-20-2021 MCV (RBC) [Entitic vol] 93.1 fL 80-94 [facility] Work Phone: Hematocrit Auto (Bld) [Volum e fraction]on 12-20-2021 Hematocrit (Bld) [Volume fraction] 44.8 % 40-54 [facility] Work Phone: Laboratory - Hematology and Cell countson 12-20-2021 Erythrocyte distribution width (RBC) [Entitic vol] 42.4 fL 35.1-43.9 [facility] Work Phone: Erythrocyte distribution width (RBC) [Ratio] 12.4 % 11.6-14.6 [facility] Work Phone: Immature granulocytes/100 WBC (Bld) 0.500 % 0.0-0.9 [facility] Work Phone: Comment on above: IG% - Immature Granu locytes (promyelocytes, myelocytes and metamyelocytes) > 1% indicates that a LEFT SHIFT is Present. MCH (RBC) [Entitic mass] 30.8 pg 27.0-32.0 [facility] Work Phone: Nucleated RBC/100 WBC (Bld) [Ratio] 0 % 0-5 [facility] Work Phone: MCHC Auto (RBC) [Mass/Vol]on 12-20-2021 MCHC (RBC) [Mass/Vol] 33.0 g/dL 32-36 [facility] Work Phone: Platelets bldon 12-20-2021 Platelets (Bld) [#/Vol] See comment 150-450 [facility] Work Phone: Comment on above: Please [...] Auto (Unsp spec) [#/Vol] 1.88 10*3/uL 0.83-4.51 [facility] Work Phone: Basophil percentageon 2021 Basophils/100 WBC (Bld) 0.6 % 0-1 [facility] Work Phone: Eosinophils/100 WBC (Bld) 0.3 % 0-5 [facility] Work Phone: Neutrophils (Bld) [#/Vol] 4.5 10*3/uL 2.0-7.7 [facility] Work Phone: Neutrophils/100 WBC (Bld) 63.6 % 47-70 [facility] Work Phone: WBC (Bld) [#/Vol] 7.1 10*3/uL 4.4-11.0 [facility]: Blood erythrocytes count (nu mber/volume)on 12-13-2021 RBC (Bld) [#/Vol] 4.70 10*6/uL 4.6-6.2 [facility] Work Phone: Blood hemoglobin measurement (mass/volume)on 12-13-2021 Hemoglobin (Bld) [Mass/Vol] 14.4 g/dL 13.0-16.5 [facility] Work Phone: Blood lymphocytes/100 leukoc yteson 12-13-2021 Lymphocytes/100 WBC (Bld) 26.7 % 19-41 [facility] Work Phone: Blood monocytes/100 leukocyt eson 12-13-2021 Monocytes/100 WBC (Bld) 8.5 % 0-10 [facility] Work Phone: [phone] Blood platelet mean volumeon 12-13-2021 Platelet mean volume (Bld) [Entitic vol] 10.9 fL 6.2-12.0 [facility] Work Phone: Determination of erythrocyte mean corpuscular volume (MCV)on 12-13-2021 MCV (RBC) [Entitic vol] 90.9 fL 80-94 [facility] Work Phone: Hematocrit Auto (Bld) [Volum e fraction]on 12-13-2021 Hematocrit (Bld) [Volume fraction] 42.7 % 40-54 [facility] Work Phone: Laboratory - Hematology and Cell countson 12-13-2021 Erythrocyte distribution width (RBC) [Entitic vol] 42.1 fL 35.1-43.9 [facility] Work Phone: Erythrocyte distribution width (RBC) [Ratio] 12.6 % 11.6-14.6 [facility] Work Phone: Immature granulocytes/100 WBC (Bld) 0.300 % 0.0-0.9 [facility] Work Phone: Comment on above: IG% - Immature Granu locytes (promyelocytes, myelocytes and metamyelocytes) > 1% indicates that a LEFT SHIFT is Present. MCH (RBC) [Entitic mass] 30.6 pg 27.0-32.0 [facility] Work Phone: Nucleated RBC/100 WBC (Bld) [Ratio] 0 % 0-5 [facility] Work Phone: MCHC Auto (RBC) [Mass/Vol]on 12-13-2021 MCHC (RBC) [Mass/Vol] 33.7 g/dL 32-36 [facility] Work Phone: Platelets bldon 12-13-2021 Platelets (Bld) [#/Vol] 194 10*3/uL 150-450 [facility] Work Phone: Absolute lymphocyte counton 12-06-2021 Lymphocytes Auto (Unsp spec) [#/Vol] 1.91 10*3/uL 0.83-4.51 [facility] Work Phone: Basophil percentageon 2021 Basophils/100 WBC (Bld) 0.4 % 0-1 [facility] Work Phone: Eosinophils/100 WBC (Bld) 0.3 % 0-5 [facility] Work Phone: Neutrophils (Bld) [#/Vol] 4.4 10*3/uL 2.0-7.7 [facility] Work Phone: Neutrophils/100 WBC (Bld) 62.2 % 47-70 [facility] Work Phone: WBC (Bld) [#/Vol] 7.0 10*3/uL 4.4-11.0 [facility]: Blood erythrocytes count (nu mber/volume)on 12-06-2021 RBC (Bld) [#/Vol] 4.58 10*6/uL 4.6-6.2 [facility] Work [facility]: Blood hemoglobin measurement (mass/volume)on 12-06-2021 Hemoglobin (Bld) [Mass/Vol] 13.8 g/dL 13.0-16.5 [facility] Work Phone: Blood lymphocytes/100 leukoc yteson 12-06-2021 Lymphocytes/100 WBC (Bld) 27.2 % 19-41 [facility] Work Phone: Blood monocytes/100 leukocyt eson 12-06-2021 Monocytes/100 WBC (Bld) 9.6 % 0-10 [facility] Work Phone: [phone] Blood platelet mean volumeon 12-06-2021 Platelet mean volume (Bld) [Entitic vol] 11.1 fL 6.2-12.0 [facility] Work Phone: Determination of erythrocyte mean corpuscular volume (MCV)on 12-06-2021 MCV (RBC) [Entitic vol] 92.1 fL 80-94 [facility] Work Phone: Hematocrit Auto (Bld) [Volum e fraction]on 12-06-2021 Hematocrit (Bld) [Volume fraction] 42.2 % 40-54 [facility] Work Phone: [phone] Laboratory - Hematology and Cell countson 12-06-2021 Erythrocyte distribution width (RBC) [Entitic vol] 42.1 fL 35.1-43.9 [facility] Work Phone: Erythrocyte distribution width (RBC) [Ratio] 12.6 % 11.6-14.6 [facility] Work Phone: Immature granulocytes/100 WBC (Bld) 0.300 % 0.0-0.9 [facility] Work Phone: Comment on above: IG% - Immature Granu locytes (promyelocytes, myelocytes and metamyelocytes) > 1% indicates that a LEFT SHIFT is Present. MCH (RBC) [Entitic mass] 30.1 pg 27.0-32.0 [facility] Work Phone: [phone] Nucleated RBC/100 WBC (Bld) [Ratio] 0 % 0-5 [facility] Work Phone: MCHC Auto (RBC) [Mass/Vol]on 12-06-2021 MCHC (RBC) [Mass/Vol] 32.7 g/dL 32-36 [facility] Work Phone: Platelets bldon 12-06-2021 Platelets (Bld) [#/Vol] 180 10*3/uL 150-450 [facility] Work Phone: [phone] Absolute lymphocyte counton 11-29-2021 Lymphocytes Auto (Unsp spec) [#/Vol] 2.00 10*3/uL 0.83-4.51 [facility] Work Phone: Basophil percentageon 2021 Basophils/100 WBC (Bld) 0.4 % 0-1 [facility] Work Phone: Eosinophils/100 WBC (Bld) 0.3 % 0-5 [facility] Work Phone: Neutrophils (Bld) [#/Vol] 4.4 10*3/uL 2.0-7.7 [facility] Work Phone: Neutrophils/100 WBC (Bld) 62.8 % 47-70 [facility] Work Phone: WBC (Bld) [#/Vol] 7.0 10*3/uL 4.4-11.0 [facility] Work Phone: Blood erythrocytes count (nu mber/volume)on 11-29-2021 RBC (Bld) [#/Vol] 4.72 10*6/uL 4.6-6.2 [facility] Work Phone: Blood hemoglobin measurement (mass/volume)on 11-29-2021 Hemoglobin (Bld) [Mass/Vol] 14.6 g/dL 13.0-16.5 [facility] Work Phone: Blood lymphocytes/100 leukoc yteson 11-29-2021 Lymphocytes/100 WBC (Bld) 28.6 % 19-41 [facility] Work Phone: Blood monocytes/100 leukocyt eson 11-29-2021 Monocytes/100 WBC (Bld) 7.6 % 0-10 [facility] Work Phone: Blood platelet mean volumeon 11-29-2021 Platelet mean volume (Bld) [Entitic vol] 11.1 fL 6.2-12.0 [facility] Work Phone: Determination of erythrocyte mean corpuscular volume (MCV)on 11-29-2021 MCV (RBC) [Entitic vol] 91.9 fL 80-94 [facility] Work Phone: Hematocrit Auto (Bld) [Volum e fraction]on 11-29-2021 Hematocrit (Bld) [Volume fraction] 43.4 % 40-54 [facility] Work Phone: Laboratory - Hematology and Cell countson 11-29-2021 Erythrocyte distribution width (RBC) [Entitic vol] 41.8 fL 35.1-43.9 [facility] Work Phone: Erythrocyte distribution width (RBC) [Ratio] 12.4 % 11.6-14.6 [facility] Work Phone: Immature granulocytes/100 WBC (Bld) 0.300 % 0.0-0.9 [facility] Work Phone: Comment on above: IG% - Immature Granu locytes (promyelocytes, myelocytes and metamyelocytes) > 1% indicates that a LEFT SHIFT is Present. MCH (RBC) [Entitic mass] 30.9 pg 27.0-32.0 [facility] Work Phone: Nucleated RBC/100 WBC (Bld) [Ratio] 0 % 0-5 [facility] Work Phone: MCHC Auto (RBC) [Mass/Vol]on 11-29-2021 MCHC (RBC) [Mass/Vol] 33.6 g/dL 32-36 [facility] Work Phone: Platelets bldon 11-29-2021 Platelets (Bld) [#/Vol] 205 10*3/uL 150-450 [facility] Work Phone: Absolute lymphocyte counton 11-22-2021 Lymphocytes Auto (Unsp spec) [#/Vol] 2.25 10*3/uL 0.83-4.51 [facility] Work Phone: Basophil percentageon 2021 Basophils/100 WBC (Bld) 0.4 % 0-1 [facility] Work Phone: Eosinophils/100 WBC (Bld) 0.4 % 0-5 [facility] Work Phone: Neutrophils (Bld) [#/Vol] 5.1 10*3/uL 2.0-7.7 [facility] Work Phone: Neutrophils/100 WBC (Bld) 61.7 % 47-70 [facility] Work Phone: WBC (Bld) [#/Vol] 8.3 10*3/uL 4.4-11.0 [facility]: Blood erythrocytes count (nu mber/volume)on 11-22-2021 RBC (Bld) [#/Vol] 4.47 10*6/uL 4.6-6.2 [facility] Work [facility]: Blood hemoglobin measurement (mass/volume)on 11-22-2021 Hemoglobin (Bld) [Mass/Vol] 13.5 g/dL 13.0-16.5 [facility] Work Phone: Blood lymphocytes/100 leukoc yteson 11-22-2021 Lymphocytes/100 WBC (Bld) 27.2 % 19-41 [facility] Work Phone: Blood monocytes/100 leukocyt eson 11-22-2021 Monocytes/100 WBC (Bld) 9.9 % 0-10 [facility] Work Phone: Blood platelet mean volumeon 11-22-2021 Platelet mean volume (Bld) [Entitic vol] 11.1 fL 6.2-12.0 [facility] Work Phone: Determination of erythrocyte mean corpuscular volume (MCV)on 11-22-2021 MCV (RBC) [Entitic vol] 92.2 fL 80-94 [facility] Work Phone: Hematocrit Auto (Bld) [Volum e fraction]on 11-22-2021 Hematocrit (Bld) [Volume fraction] 41.2 % 40-54 [facility] Work Phone: Laboratory - Hematology and Cell countson 11-22-2021 Erythrocyte distribution width (RBC) [Entitic vol] 42.3 fL 35.1-43.9 [facility] Work Phone: Erythrocyte distribution width (RBC) [Ratio] 12.6 % 11.6-14.6 [facility] Work Phone: Immature granulocytes/100 WBC (Bld) 0.400 % 0.0-0.9 [facility] Work Phone: Comment on above: IG% - Immature Granu locytes (promyelocytes, myelocytes and metamyelocytes) > 1% indicates that a LEFT SHIFT is Present. MCH (RBC) [Entitic mass] 30.2 pg 27.0-32.0 [facility] Work Phone: Nucleated RBC/100 WBC (Bld) [Ratio] 0 % 0-5 [facility] Work Phone: MCHC Auto (RBC) [Mass/Vol]on 11-22-2021 MCHC (RBC) [Mass/Vol] 32.8 g/dL 32-36 [facility] Work Phone: Platelets bldon 11-22-2021 Platelets (Bld) [#/Vol] 190 10*3/uL 150-450 [facility] Work Phone: Absolute lymphocyte counton 11-15-2021 Lymphocytes Auto (Unsp spec) [#/Vol] 2.09 10*3/uL 0.83-4.51 [facility] Work Phone: Basophil percentageon 2021 Basophils/100 WBC (Bld) 0.6 % 0-1 [facility] Work Phone: Eosinophils/100 WBC (Bld) 0.4 % 0-5 [facility] Work Phone: Neutrophils (Bld) [#/Vol] 4.2 10*3/uL 2.0-7.7 [facility] Work Phone: Neutrophils/100 WBC (Bld) 59.1 % 47-70 [facility] Work Phone: WBC (Bld) [#/Vol] 7.1 10*3/uL 4.4-11.0 [facility]: Blood erythrocytes count (nu mber/volume)on 11-15-2021 RBC (Bld) [#/Vol] 4.72 10*6/uL 4.6-6.2 [facility] Work [facility]: [phone] Blood hemoglobin measurement (mass/volume)on 11-15-2021 Hemoglobin (Bld) [Mass/Vol] 14.6 g/dL 13.0-16.5 [facility] Work Phone: Blood lymphocytes/100 leukoc yteson 11-15-2021 Lymphocytes/100 WBC (Bld) 29.4 % 19-41 [facility] Work Phone: Blood monocytes/100 leukocyt eson 11-15-2021 Monocytes/100 WBC (Bld) 10.1 % 0-10 [facility] Work Phone: Blood platelet mean volumeon 11-15-2021 Platelet mean volume (Bld) [Entitic vol] 10.7 fL 6.2-12.0 [facility] Work Phone: Determination of erythrocyte mean corpuscular volume (MCV)on 11-15-2021 MCV (RBC) [Entitic vol] 91.9 fL 80-94 [facility] Work Phone: Hematocrit Auto (Bld) [Volum e fraction]on 11-15-2021 Hematocrit (Bld) [Volume fraction] 43.4 % 40-54 [facility] Work Phone: Laboratory - Hematology and Cell countson 11-15-2021 Erythrocyte distribution width (RBC) [Entitic vol] 41.9 fL 35.1-43.9 [facility] Work Phone: Erythrocyte distribution width (RBC) [Ratio] 12.4 % 11.6-14.6 [facility] Work Phone: Immature granulocytes/100 WBC (Bld) 0.400 % 0.0-0.9 [facility] Work Phone: Comment on above: IG% - Immature Granu locytes (promyelocytes, myelocytes and metamyelocytes) > 1% indicates that a LEFT SHIFT is Present. MCH (RBC) [Entitic mass] 30.9 pg 27.0-32.0 [facility] Work Phone: Nucleated RBC/100 WBC (Bld) [Ratio] 0 % 0-5 [facility] Work Phone: MCHC Auto (RBC) [Mass/Vol]on 11-15-2021 MCHC (RBC) [Mass/Vol] 33.6 g/dL 32-36 [facility] Work Phone: [phone] Platelets bldon 11-15-2021 Platelets (Bld) [#/Vol] 191 10*3/uL 150-450 [facility] Work Phone: Absolute lymphocyte counton 11-08-2021 Lymphocytes Auto (Unsp spec) [#/Vol] 1.97 10*3/uL 0.83-4.51 [facility] Work Phone: Basophil percentageon 2021 Basophils/100 WBC (Bld) 0.3 % 0-1 [facility] Work Phone: [phone] Eosinophils/100 WBC (Bld) 0.3 % 0-5 [facility] Work Phone: Neutrophils (Bld) [#/Vol] 5.1 10*3/uL 2.0-7.7 [facility] Work Phone: Neutrophils/100 WBC (Bld) 64.6 % 47-70 [facility] Work Phone: WBC (Bld) [#/Vol] 7.8 10*3/uL 4.4-11.0 [facility] Work Phone: Blood erythrocytes count (nu mber/volume)on 11-08-2021 RBC (Bld) [#/Vol] 4.53 10*6/uL 4.6-6.2 [facility] Work [facility]: Blood hemoglobin measurement (mass/volume)on 11-08-2021 Hemoglobin (Bld) [Mass/Vol] 14.2 g/dL 13.0-16.5 [facility] Work Phone: [phone] Blood lymphocytes/100 leukoc yteson 11-08-2021 Lymphocytes/100 WBC (Bld) 25.2 % 19-41 [facility] Work Phone: Blood monocytes/100 leukocyt eson 11-08-2021 Monocytes/100 WBC (Bld) 9.3 % 0-10 [facility] Work Phone: Blood platelet mean volumeon 11-08-2021 Platelet mean volume (Bld) [Entitic vol] 10.9 fL 6.2-12.0 [facility] Work Phone: Determination of erythrocyte mean corpuscular volume (MCV)on 11-08-2021 MCV (RBC) [Entitic vol] 92.7 fL 80-94 [facility] Work Phone: Hematocrit Auto (Bld) [Volum e fraction]on 11-08-2021 Hematocrit (Bld) [Volume fraction] 42.0 % 40-54 [facility] Work Phone: Laboratory - Hematology and Cell countson 11-08-2021 Erythrocyte distribution width (RBC) [Entitic vol] 42.3 fL 35.1-43.9 [facility] Work Phone: Erythrocyte distribution width (RBC) [Ratio] 12.5 % 11.6-14.6 [facility] Work Phone: Immature granulocytes/100 WBC (Bld) 0.300 % 0.0-0.9 [facility] Work Phone: Comment on above: IG% - Immature Granu locytes (promyelocytes, myelocytes and metamyelocytes) > 1% indicates that a LEFT SHIFT is Present. MCH (RBC) [Entitic mass] 31.3 pg 27.0-32.0 [facility] Work Phone: Nucleated RBC/100 WBC (Bld) [Ratio] 0 % 0-5 [facility] Work Phone: MCHC Auto (RBC) [Mass/Vol]on 11-08-2021 MCHC (RBC) [Mass/Vol] 33.8 g/dL 32-36 [facility] Work Phone: Platelets bldon 11-08-2021 Platelets (Bld) [#/Vol] 207 10*3/uL 150-450 [facility] Work Phone: [phone] Absolute lymphocyte counton 10-25-2021 Lymphocytes Auto (Unsp spec) [#/Vol] 2.05 10*3/uL 0.83-4.51 [facility] Work Phone: [phone] Basophil percentageon 2021 Basophils/100 WBC (Bld) 0.4 % 0-1 [facility] Work Phone: Eosinophils/100 WBC (Bld) 0.3 % 0-5 [facility] Work Phone: [phone] Neutrophils (Bld) [#/Vol] 4.2 10*3/uL 2.0-7.7 [facility] Work Phone: [phone] Neutrophils/100 WBC (Bld) 61.3 % 47-70 [facility] Work Phone: [phone] WBC (Bld) [#/Vol] 6.8 10*3/uL 4.4-11.0 [facility] Work [facility]: Blood erythrocytes count (nu mber/volume)on 10-25-2021 RBC (Bld) [#/Vol] 4.56 10*6/uL 4.6-6.2 [facility] Work [facility]: Blood hemoglobin measurement (mass/volume)on 10-25-2021 Hemoglobin (Bld) [Mass/Vol] 13.9 g/dL 13.0-16.5 [facility] Work Phone: [phone] Blood lymphocytes/100 leukoc yteson 10-25-2021 Lymphocytes/100 WBC (Bld) 30.1 % 19-41 [facility] Work Phone: [phone] Blood monocytes/100 leukocyt eson 10-25-2021 Monocytes/100 WBC (Bld) 7.3 % 0-10 [facility] Work Phone: [phone] Blood platelet mean volumeon 10-25-2021 Platelet mean volume (Bld) [Entitic vol] 10.6 fL 6.2-12.0 [facility] Work Phone: Determination of erythrocyte mean corpuscular volume (MCV)on 10-25-2021 MCV (RBC) [Entitic vol] 91.0 fL 80-94 [facility] Work Phone: Hematocrit Auto (Bld) [Volum e fraction]on 10-25-2021 Hematocrit (Bld) [Volume fraction] 41.5 % 40-54 [facility] Work Phone: Laboratory - Hematology and Cell countson 10-25-2021 Erythrocyte distribution width (RBC) [Entitic vol] 41.7 fL 35.1-43.9 [facility] Work Phone: Erythrocyte distribution width (RBC) [Ratio] 12.6 % 11.6-14.6 [facility] Work Phone: Immature granulocytes/100 WBC (Bld) 0.600 % 0.0-0.9 [facility] Work Phone: Comment on above: IG% - Immature Granu locytes (promyelocytes, myelocytes and metamyelocytes) > 1% indicates that a LEFT SHIFT is Present. MCH (RBC) [Entitic mass] 30.5 pg 27.0-32.0 [facility] Work Phone: Nucleated RBC/100 WBC (Bld) [Ratio] 0 % 0-5 [facility] Work Phone: MCHC Auto (RBC) [Mass/Vol]on 10-25-2021 MCHC (RBC) [Mass/Vol] 33.5 g/dL 32-36 [facility] Work Phone: Platelets bldon 10-25-2021 Platelets (Bld) [#/Vol] 191 10*3/uL 150-450 [facility] Work Phone: Absolute lymphocyte counton 10-18-2021 Lymphocytes Auto (Unsp spec) [#/Vol] 1.66 10*3/uL 0.83-4.51 [facility] Work Phone: Basophil percentageon 2021 Basophils/100 WBC (Bld) 0.5 % 0-1 [facility] Work Phone: Eosinophils/100 WBC (Bld) 0.2 % 0-5 [facility] Work Phone: Neutrophils (Bld) [#/Vol] 4.3 10*3/uL 2.0-7.7 [facility] Work Phone: Neutrophils/100 WBC (Bld) 65.0 % 47-70 [facility] Work Phone: [phone] WBC (Bld) [#/Vol] 6.6 10*3/uL 4.4-11.0 [facility] Work Phone: Blood erythrocytes count (nu mber/volume)on 10-18-2021 RBC (Bld) [#/Vol] 4.57 10*6/uL 4.6-6.2 [facility] Work [facility]: Blood hemoglobin measurement (mass/volume)on 10-18-2021 Hemoglobin (Bld) [Mass/Vol] 14.1 g/dL 13.0-16.5 [facility] Work Phone: Blood lymphocytes/100 leukoc yteson 10-18-2021 Lymphocytes/100 WBC (Bld) 25.2 % 19-41 [facility] Work Phone: Blood monocytes/100 leukocyt eson 10-18-2021 Monocytes/100 WBC (Bld) 8.8 % 0-10 [facility] Work Phone: Blood platelet mean volumeon 10-18-2021 Platelet mean volume (Bld) [Entitic vol] 10.6 fL 6.2-12.0 [facility] Work Phone: Determination of erythrocyte mean corpuscular volume (MCV)on 10-18-2021 MCV (RBC) [Entitic vol] 91.7 fL 80-94 [facility] Work Phone: Hematocrit Auto (Bld) [Volum e fraction]on 10-18-2021 Hematocrit (Bld) [Volume fraction] 41.9 % 40-54 [facility] Work Phone: Laboratory - Hematology and Cell countson 10-18-2021 Erythrocyte distribution width (RBC) [Entitic vol] 41.6 fL 35.1-43.9 [facility] Work Phone: Erythrocyte distribution width (RBC) [Ratio] 12.5 % 11.6-14.6 [facility] Work Phone: [phone] Immature granulocytes/100 WBC (Bld) 0.300 % 0.0-0.9 [facility] Work Phone: Comment on above: IG% - Immature Granu locytes (promyelocytes, myelocytes and metamyelocytes) > 1% indicates that a LEFT SHIFT is Present. MCH (RBC) [Entitic mass] 30.9 pg 27.0-32.0 [facility] Work Phone: Nucleated RBC/100 WBC (Bld) [Ratio] 0 % 0-5 [facility] Work Phone: MCHC Auto (RBC) [Mass/Vol]on 10-18-2021 MCHC (RBC) [Mass/Vol] 33.7 g/dL 32-36 [facility] Work Phone: [phone] Platelets bldon 10-18-2021 Platelets (Bld) [#/Vol] 185 10*3/uL 150-450 [facility] Work Phone: [phone] Absolute lymphocyte counton 10-11-2021 Lymphocytes Auto (Unsp spec) [#/Vol] 1.66 10*3/uL 0.83-4.51 [facility] Work Phone: [phone] Basophil percentageon 2021 Basophils/100 WBC (Bld) 0.5 % 0-1 [facility] Work Phone: [phone] Eosinophils/100 WBC (Bld) 0.1 % 0-5 [facility] Work Phone: Neutrophils (Bld) [#/Vol] 5.9 10*3/uL 2.0-7.7 [facility] Work Phone: Neutrophils/100 WBC (Bld) 70.8 % 47-70 [facility] Work Phone: WBC (Bld) [#/Vol] 8.3 10*3/uL 4.4-11.0 [facility]: Blood erythrocytes count (nu mber/volume)on 10-11-2021 RBC (Bld) [#/Vol] 4.66 10*6/uL 4.6-6.2 [facility] Work Phone: Blood hemoglobin measurement (mass/volume)on 10-11-2021 Hemoglobin (Bld) [Mass/Vol] 14.1 g/dL 13.0-16.5 [facility] Work Phone: Blood lymphocytes/100 leukoc yteson 10-11-2021 Lymphocytes/100 WBC (Bld) 20.0 % 19-41 [facility] Work Phone: Blood monocytes/100 leukocyt eson 10-11-2021 Monocytes/100 WBC (Bld) 8.2 % 0-10 [facility] Work Phone: Blood platelet mean volumeon 10-11-2021 Platelet mean volume (Bld) [Entitic vol] 10.7 fL 6.2-12.0 [facility] Work Phone: Determination of erythrocyte mean corpuscular volume (MCV)on 10-11-2021 MCV (RBC) [Entitic vol] 91.8 fL 80-94 [facility] Work Phone: Hematocrit Auto (Bld) [Volum e fraction]on 10-11-2021 Hematocrit (Bld) [Volume fraction] 42.8 % 40-54 [facility] Work Phone: [phone] Laboratory - Hematology and Cell countson 10-11-2021 Erythrocyte distribution width (RBC) [Entitic vol] 42.8 fL 35.1-43.9 [facility] Work Phone: Erythrocyte distribution width (RBC) [Ratio] 12.8 % 11.6-14.6 [facility] Work Phone: Immature granulocytes/100 WBC (Bld) 0.400 % 0.0-0.9 [facility] Work Phone: Comment on above: IG% - Immature Granu locytes (promyelocytes, myelocytes and metamyelocytes) > 1% indicates that a LEFT SHIFT is Present. MCH (RBC) [Entitic mass] 30.3 pg 27.0-32.0 [facility] Work Phone: Nucleated RBC/100 WBC (Bld) [Ratio] 0 % 0-5 [facility] Work Phone: MCHC Auto (RBC) [Mass/Vol]on 10-11-2021 MCHC (RBC) [Mass/Vol] 32.9 g/dL 32-36 [facility] Work Phone: Platelets bldon 10-11-2021 Platelets (Bld) [#/Vol] 193 10*3/uL 150-450 [facility] Work Phone: Absolute lymphocyte counton 10-04-2021 Lymphocytes Auto (Unsp spec) [#/Vol] 1.97 10*3/uL 0.83-4.51 [facility] Work Phone: Basophil percentageon 2021 Basophils/100 WBC (Bld) 0.5 % 0-1 [facility] Work Phone: Eosinophils/100 WBC (Bld) 0.1 % 0-5 [facility] Work Phone: Neutrophils (Bld) [#/Vol] 5.0 10*3/uL 2.0-7.7 [facility] Work Phone: Neutrophils/100 WBC (Bld) 64.4 % 47-70 [facility] Work Phone: WBC (Bld) [#/Vol] 7.7 10*3/uL 4.4-11.0 [facility] Work [facility]: Blood erythrocytes count (nu mber/volume)on 10-04-2021 RBC (Bld) [#/Vol] 4.52 10*6/uL 4.6-6.2 [facility] Work Phone: Blood hemoglobin measurement (mass/volume)on 10-04-2021 Hemoglobin (Bld) [Mass/Vol] 13.9 g/dL 13.0-16.5 [facility] Work Phone: Blood lymphocytes/100 leukoc yteson 10-04-2021 Lymphocytes/100 WBC (Bld) 25.6 % 19-41 [facility] Work Phone: Blood monocytes/100 leukocyt eson 10-04-2021 Monocytes/100 WBC (Bld) 9.0 % 0-10 [facility] Work Phone: Blood platelet mean volumeon 10-04-2021 Platelet mean volume (Bld) [Entitic vol] 11.0 fL 6.2-12.0 [facility] Work Phone: Determination of erythrocyte mean corpuscular volume (MCV)on 10-04-2021 MCV (RBC) [Entitic vol] 91.4 fL 80-94 [facility] Work Phone: Hematocrit Auto (Bld) [Volum e fraction]on 10-04-2021 Hematocrit (Bld) [Volume fraction] 41.3 % 40-54 [facility] Work Phone: Laboratory - Hematology and Cell countson 10-04-2021 Erythrocyte distribution width (RBC) [Entitic vol] 42.2 fL 35.1-43.9 [facility] Work Phone: Erythrocyte distribution width (RBC) [Ratio] 12.8 % 11.6-14.6 [facility] Work Phone: Immature granulocytes/100 WBC (Bld) 0.400 % 0.0-0.9 [facility] Work Phone: [phone] Comment on above: IG% - Immature Granu locytes (promyelocytes, myelocytes and metamyelocytes) > 1% indicates that a LEFT SHIFT is Present. MCH (RBC) [Entitic mass] 30.8 pg 27.0-32.0 [facility] Work Phone: Nucleated RBC/100 WBC (Bld) [Ratio] 0 % 0-5 [facility] Work Phone: MCHC Auto (RBC) [Mass/Vol]on 10-04-2021 MCHC (RBC) [Mass/Vol] 33.7 g/dL 32-36 [facility] Work Phone: Platelets bldon 10-04-2021 Platelets (Bld) [#/Vol] 179 10*3/uL 150-450 [facility] Work Phone: [phone] Absolute lymphocyte counton 09-28-2021 Lymphocytes Auto (Unsp spec) [#/Vol] 2.10 10*3/uL 0.83-4.51 [facility] Work Phone: Basophil percentageon 2021 Basophils/100 WBC (Bld) 0.4 % 0-1 [facility] Work Phone: Eosinophils/100 WBC (Bld) 0.3 % 0-5 [facility] Work Phone: Neutrophils (Bld) [#/Vol] 4.3 10*3/uL 2.0-7.7 [facility] Work Phone: Neutrophils/100 WBC (Bld) 59.9 % 47-70 [facility] Work Phone: WBC (Bld) [#/Vol] 7.2 10*3/uL 4.4-11.0 [facility] Work [facility]: Blood erythrocytes count (nu mber/volume)on 09-28-2021 RBC (Bld) [#/Vol] 4.34 10*6/uL 4.6-6.2 [facility] Work Phone: Blood hemoglobin measurement (mass/volume)on 09-28-2021 Hemoglobin (Bld) [Mass/Vol] 13.3 g/dL 13.0-16.5 [facility] Work Phone: Blood lymphocytes/100 leukoc yteson 09-28-2021 Lymphocytes/100 WBC (Bld) 29.3 % 19-41 [facility] Work Phone: Blood monocytes/100 leukocyt eson 09-28-2021 Monocytes/100 WBC (Bld) 9.8 % 0-10 [facility] Work Phone: Blood platelet mean volumeon 09-28-2021 Platelet mean volume (Bld) [Entitic vol] 10.7 fL 6.2-12.0 [facility] Work Phone: Determination of erythrocyte mean corpuscular volume (MCV)on 09-28-2021 MCV (RBC) [Entitic vol] 91.2 fL 80-94 [facility] Work Phone: Hematocrit Auto (Bld) [Volum e fraction]on 09-28-2021 Hematocrit (Bld) [Volume fraction] 39.6 % 40-54 [facility] Work Phone: Laboratory - Hematology and Cell countson 09-28-2021 Erythrocyte distribution width (RBC) [Entitic vol] 41.8 fL 35.1-43.9 [facility] Work Phone: Erythrocyte distribution width (RBC) [Ratio] 12.6 % 11.6-14.6 [facility] Work Phone: Immature granulocytes/100 WBC (Bld) 0.300 % 0.0-0.9 [facility] Work Phone: Comment on above: IG% - Immature Granu locytes (promyelocytes, myelocytes and metamyelocytes) > 1% indicates that a LEFT SHIFT is Present. MCH (RBC) [Entitic mass] 30.6 pg 27.0-32.0 [facility] Work Phone: Nucleated RBC/100 WBC (Bld) [Ratio] 0 % 0-5 [facility] Work Phone: [phone] MCHC Auto (RBC) [Mass/Vol]on 09-28-2021 MCHC (RBC) [Mass/Vol] 33.6 g/dL 32-36 [facility] Work Phone: [phone] Platelets bldon 09-28-2021 Platelets (Bld) [#/Vol] 181 10*3/uL 150-450 [facility] Work Phone: [phone] Absolute lymphocyte counton 09-20-2021 Lymphocytes Auto (Unsp spec) [#/Vol] 1.79 10*3/uL 0.83-4.51 [facility] Work Phone: Basophil percentageon 2021 Basophils/100 WBC (Bld) 0.4 % 0-1 [facility] Work Phone: [phone] Eosinophils/100 WBC (Bld) 0.3 % 0-5 [facility] Work Phone: Neutrophils (Bld) [#/Vol] 4.1 10*3/uL 2.0-7.7 [facility] Work Phone: Neutrophils/100 WBC (Bld) 61.3 % 47-70 [facility] Work Phone: [phone] WBC (Bld) [#/Vol] 6.7 10*3/uL 4.4-11.0 [facility] Work Phone: Blood erythrocytes count (nu mber/volume)on 09-20-2021 RBC (Bld) [#/Vol] 4.32 10*6/uL 4.6-6.2 [facility] Work Phone: Blood hemoglobin measurement (mass/volume)on 09-20-2021 Hemoglobin (Bld) [Mass/Vol] 13.6 g/dL 13.0-16.5 [facility] Work Phone: [phone] Blood lymphocytes/100 leukoc yteson 09-20-2021 Lymphocytes/100 WBC (Bld) 26.8 % 19-41 [facility] Work Phone: Blood monocytes/100 leukocyt eson 09-20-2021 Monocytes/100 WBC (Bld) 10.8 % 0-10 [facility] Work Phone: Blood platelet mean volumeon 09-20-2021 Platelet mean volume (Bld) [Entitic vol] 10.7 fL 6.2-12.0 [facility] Work Phone: Determination of erythrocyte mean corpuscular volume (MCV)on 09-20-2021 MCV (RBC) [Entitic vol] 93.1 fL 80-94 [facility] Work Phone: Hematocrit Auto (Bld) [Volum e fraction]on 09-20-2021 Hematocrit (Bld) [Volume fraction] 40.2 % 40-54 [facility] Work Phone: Laboratory - Hematology and Cell countson 09-20-2021 Erythrocyte distribution width (RBC) [Entitic vol] 43.0 fL 35.1-43.9 [facility] Work Phone: Erythrocyte distribution width (RBC) [Ratio] 12.6 % 11.6-14.6 [facility] Work Phone: Immature granulocytes/100 WBC (Bld) 0.400 % 0.0-0.9 [facility] Work Phone: Comment on above: IG% - Immature Granu locytes (promyelocytes, myelocytes and metamyelocytes) > 1% indicates that a LEFT SHIFT is Present. MCH (RBC) [Entitic mass] 31.5 pg 27.0-32.0 [facility] Work Phone: Nucleated RBC/100 WBC (Bld) [Ratio] 0 % 0-5 [facility] Work Phone: MCHC Auto (RBC) [Mass/Vol]on 09-20-2021 MCHC (RBC) [Mass/Vol] 33.8 g/dL 32-36 [facility] Work Phone: Platelets bldon 09-20-2021 Platelets (Bld) [#/Vol] 170 10*3/uL 150-450 [facility] Work Phone: [phone] Absolute lymphocyte counton 09-13-2021 Lymphocytes Auto (Unsp spec) [#/Vol] 1.85 10*3/uL 0.83-4.51 [facility] Work Phone: Basophil percentageon 2021 Basophils/100 WBC (Bld) 0.6 % 0-1 [facility] Work Phone: Eosinophils/100 WBC (Bld) 0.3 % 0-5 [facility] Work Phone: [phone] Neutrophils (Bld) [#/Vol] 4.3 10*3/uL 2.0-7.7 [facility] Work Phone: Neutrophils/100 WBC (Bld) 63.1 % 47-70 [facility] Work Phone: WBC (Bld) [#/Vol] 6.7 10*3/uL 4.4-11.0 [facility] Work Phone: Blood erythrocytes count (nu mber/volume)on 09-13-2021 RBC (Bld) [#/Vol] 4.63 10*6/uL 4.6-6.2 [facility] Work Phone: Blood hemoglobin measurement (mass/volume)on 09-13-2021 Hemoglobin (Bld) [Mass/Vol] 14.2 g/dL 13.0-16.5 [facility] Work Phone: [phone] Blood lymphocytes/100 leukoc yteson 09-13-2021 Lymphocytes/100 WBC (Bld) 27.5 % 19-41 [facility] Work Phone: Blood monocytes/100 leukocyt eson 09-13-2021 Monocytes/100 WBC (Bld) 8.2 % 0-10 [facility] Work Phone: [phone] Blood platelet mean volumeon 09-13-2021 Platelet mean volume (Bld) [Entitic vol] 11.0 fL 6.2-12.0 [facility] Work Phone: Determination of erythrocyte mean corpuscular volume (MCV)on 09-13-2021 MCV (RBC) [Entitic vol] 93.5 fL 80-94 [facility] Work Phone: Hematocrit Auto (Bld) [Volum e fraction]on 09-13-2021 Hematocrit (Bld) [Volume fraction] 43.3 % 40-54 [facility] Work Phone: Laboratory - Hematology and Cell countson 09-13-2021 Erythrocyte distribution width (RBC) [Entitic vol] 43.0 fL 35.1-43.9 [facility] Work Phone: Erythrocyte distribution width (RBC) [Ratio] 12.6 % 11.6-14.6 [facility] Work Phone: Immature granulocytes/100 WBC (Bld) 0.300 % 0.0-0.9 [facility] Work Phone: Comment on above: IG% - Immature Granu locytes (promyelocytes, myelocytes and metamyelocytes) > 1% indicates that a LEFT SHIFT is Present. MCH (RBC) [Entitic mass] 30.7 pg 27.0-32.0 [facility] Work Phone: Nucleated RBC/100 WBC (Bld) [Ratio] 0 % 0-5 [facility] Work Phone: MCHC Auto (RBC) [Mass/Vol]on 09-13-2021 MCHC (RBC) [Mass/Vol] 32.8 g/dL 32-36 [facility] Work Phone: Platelets bldon 09-13-2021 Platelets (Bld) [#/Vol] 188 10*3/uL 150-450 [facility] Work Phone: Absolute lymphocyte counton 09-06-2021 Lymphocytes Auto (Unsp spec) [#/Vol] 1.86 10*3/uL 0.83-4.51 [facility] Work Phone: Basophil percentageon 2021 Basophils/100 WBC (Bld) 0.7 % 0-1 [facility] Work Phone: Eosinophils/100 WBC (Bld) 0.3 % 0-5 [facility] Work Phone: Neutrophils (Bld) [#/Vol] 4.4 10*3/uL 2.0-7.7 [facility] Work Phone: Neutrophils/100 WBC (Bld) 62.6 % 47-70 [facility] Work Phone: WBC (Bld) [#/Vol] 7.0 10*3/uL 4.4-11.0 [facility] Work Phone: Blood erythrocytes count (nu mber/volume)on 09-06-2021 RBC (Bld) [#/Vol] 4.51 10*6/uL 4.6-6.2 [facility] Work [facility]: Blood hemoglobin measurement (mass/volume)on 09-06-2021 Hemoglobin (Bld) [Mass/Vol] 13.8 g/dL 13.0-16.5 [facility] Work Phone: Blood lymphocytes/100 leukoc yteson 09-06-2021 Lymphocytes/100 WBC (Bld) 26.5 % 19-41 [facility] Work Phone: Blood monocytes/100 leukocyt eson 09-06-2021 Monocytes/100 WBC (Bld) 9.5 % 0-10 [facility] Work Phone: Blood platelet mean volumeon 09-06-2021 Platelet mean volume (Bld) [Entitic vol] 10.7 fL 6.2-12.0 [facility] Work Phone: Determination of erythrocyte mean corpuscular volume (MCV)on 09-06-2021 MCV (RBC) [Entitic vol] 92.9 fL 80-94 [facility] Work Phone: Hematocrit Auto (Bld) [Volum e fraction]on 09-06-2021 Hematocrit (Bld) [Volume fraction] 41.9 % 40-54 [facility] Work Phone: Laboratory - Hematology and Cell countson 09-06-2021 Erythrocyte distribution width (RBC) [Entitic vol] 43.0 fL 35.1-43.9 [facility] Work Phone: Erythrocyte distribution width (RBC) [Ratio] 12.7 % 11.6-14.6 [facility] Work Phone: Immature granulocytes/100 WBC (Bld) 0.400 % 0.0-0.9 [facility] Work Phone: Comment on above: IG% - Immature Granu locytes (promyelocytes, myelocytes and metamyelocytes) > 1% indicates that a LEFT SHIFT is Present. MCH (RBC) [Entitic mass] 30.6 pg 27.0-32.0 [facility] Work Phone: Nucleated RBC/100 WBC (Bld) [Ratio] 0 % 0-5 [facility] Work Phone: MCHC Auto (RBC) [Mass/Vol]on 09-06-2021 MCHC (RBC) [Mass/Vol] 32.9 g/dL 32-36 [facility] Work Phone: Platelets bldon 09-06-2021 Platelets (Bld) [#/Vol] 189 10*3/uL 150-450 [facility] Work Phone: Absolute lymphocyte counton 08-30-2021 Lymphocytes Auto (Unsp spec) [#/Vol] 1.44 10*3/uL 0.83-4.51 [facility] Work Phone: Basophil percentageon 2021 Basophils/100 WBC (Bld) 0.3 % 0-1 [facility] Work Phone: Eosinophils/100 WBC (Bld) 0.2 % 0-5 [facility] Work Phone: Neutrophils (Bld) [#/Vol] 9.6 10*3/uL 2.0-7.7 [facility] Work Phone: Neutrophils/100 WBC (Bld) 80.4 % 47-70 [facility] Work Phone: WBC (Bld) [#/Vol] 12.0 10*3/uL 4.4-11.0 [facility] Work Phone: Blood erythrocytes count (nu mber/volume)on 08-30-2021 RBC (Bld) [#/Vol] 4.52 10*6/uL 4.6-6.2 [facility] Work Phone: Blood hemoglobin measurement (mass/volume)on 08-30-2021 Hemoglobin (Bld) [Mass/Vol] 13.9 g/dL 13.0-16.5 [facility] Work Phone: Blood lymphocytes/100 leukoc yteson 08-30-2021 Lymphocytes/100 WBC (Bld) 12.0 % 19-41 [facility] Work Phone: Blood monocytes/100 leukocyt eson 08-30-2021 Monocytes/100 WBC (Bld) 6.7 % 0-10 [facility] Work Phone: Blood platelet mean volumeon 08-30-2021 Platelet mean volume (Bld) [Entitic vol] 11.3 fL 6.2-12.0 [facility] Work Phone: Determination of erythrocyte mean corpuscular volume (MCV)on 08-30-2021 MCV (RBC) [Entitic vol] 92.7 fL 80-94 [facility] Work Phone: Hematocrit Auto (Bld) [Volum e fraction]on 08-30-2021 Hematocrit (Bld) [Volume fraction] 41.9 % 40-54 [facility] Work Phone: Laboratory - Hematology and Cell countson 08-30-2021 Erythrocyte distribution width (RBC) [Entitic vol] 42.6 fL 35.1-43.9 [facility] Work Phone: [phone] Erythrocyte distribution width (RBC) [Ratio] 12.6 % 11.6-14.6 [facility] Work Phone: [phone] Immature granulocytes/100 WBC (Bld) 0.400 % 0.0-0.9 [facility] Work Phone: [phone] Comment on above: IG% - Immature Granu locytes (promyelocytes, myelocytes and metamyelocytes) > 1% indicates that a LEFT SHIFT is Present. MCH (RBC) [Entitic mass] 30.8 pg 27.0-32.0 [facility] Work Phone: [phone] Nucleated RBC/100 WBC (Bld) [Ratio] 0 % 0-5 [facility] Work Phone: MCHC Auto (RBC) [Mass/Vol]on 08-30-2021 MCHC (RBC) [Mass/Vol] 33.2 g/dL 32-36 [facility] Work Phone: Platelets bldon 08-30-2021 Platelets (Bld) [#/Vol] 200 10*3/uL 150-450 [facility] Work Phone: [phone] Absolute lymphocyte counton 08-23-2021 Lymphocytes Auto (Unsp spec) [#/Vol] 1.91 10*3/uL 0.83-4.51 [facility] Work Phone: Basophil percentageon 2021 Basophils/100 WBC (Bld) 0.4 % 0-1 [facility] Work Phone: Eosinophils/100 WBC (Bld) 0.3 % 0-5 [facility] Work Phone: Neutrophils (Bld) [#/Vol] 4.2 10*3/uL 2.0-7.7 [facility] Work Phone: [phone] Neutrophils/100 WBC (Bld) 62.3 % 47-70 [facility] Work Phone: WBC (Bld) [#/Vol] 6.8 10*3/uL 4.4-11.0 [facility]: Blood erythrocytes count (nu mber/volume)on 08-23-2021 RBC (Bld) [#/Vol] 4.46 10*6/uL 4.6-6.2 [facility] Work Phone: Blood hemoglobin measurement (mass/volume)on 08-23-2021 Hemoglobin (Bld) [Mass/Vol] 13.7 g/dL 13.0-16.5 [facility] Work Phone: Blood lymphocytes/100 leukoc yteson 08-23-2021 Lymphocytes/100 WBC (Bld) 28.3 % 19-41 [facility] Work Phone: Blood monocytes/100 leukocyt eson 08-23-2021 Monocytes/100 WBC (Bld) 8.1 % 0-10 [facility] Work Phone: Blood platelet mean volumeon 08-23-2021 Platelet mean volume (Bld) [Entitic vol] 10.6 fL 6.2-12.0 [facility] Work Phone: Determination of erythrocyte mean corpuscular volume (MCV)on 08-23-2021 MCV (RBC) [Entitic vol] 93.0 fL 80-94 [facility] Work Phone: Hematocrit Auto (Bld) [Volum e fraction]on 08-23-2021 Hematocrit (Bld) [Volume fraction] 41.5 % 40-54 [facility] Work Phone: Laboratory - Hematology and Cell countson 08-23-2021 Erythrocyte distribution width (RBC) [Entitic vol] 42.4 fL 35.1-43.9 [facility] Work Phone: Erythrocyte distribution width (RBC) [Ratio] 12.5 % 11.6-14.6 [facility] Work Phone: Immature granulocytes/100 WBC (Bld) 0.600 % 0.0-0.9 [facility] Work Phone: Comment on above: IG% - Immature Granu locytes (promyelocytes, myelocytes and metamyelocytes) > 1% indicates that a LEFT SHIFT is Present. MCH (RBC) [Entitic mass] 30.7 pg 27.0-32.0 [facility] Work Phone: Nucleated RBC/100 WBC (Bld) [Ratio] 0 % 0-5 [facility] Work Phone: MCHC Auto (RBC) [Mass/Vol]on 08-23-2021 MCHC (RBC) [Mass/Vol] 33.0 g/dL 32-36 [facility] Work Phone: Platelets bldon 08-23-2021 Platelets (Bld) [#/Vol] 198 10*3/uL 150-450 [facility] Work Phone: Basophil percentageon 2021 Basophil percentage 0 SEEN /hpf 0-5 [facility] Work Phone: Bilirubin Test strip Ql (U)o n 08-18-2021 Bilirubin Ql (U) Negative Negative [facility] Work Phone: Culture, urineon 08-18-2021 Bacteria identified Cx Nom (U) Culture exhibits no growth. [facility] Work Phone: Ketones Test strip Ql (U)on 08-18-2021 Ketones Ql (U) Negative Negative [facility] Work Phone: Mucus LM Ql (Urine sed)on Mucus Ql (Urine sed) 0 SEEN /hpf [facility] Work Phone: Nitrite Test strip Ql (U)on 08-18-2021 Nitrite Ql (U) Negative Negative [facility] Work Phone: [phone] Protein Test strip Ql (U)on 08-18-2021 Protein Ql (U) Negative Negative [facility] Work Phone: Squamous epithelial cells de tection in urine sediment by light microscopyon 08-18-2021 Epithelial cells.squamous LM Ql (Urine sed) 0 SEEN /hpf 0-5 [facility] Work Phone: Urine blood detectionon - RBC Ql (U) Negative Negative [facility] Work Phone: RBC Ql (U) 0 SEEN /hpf 0-5 [facility] Work Phone: Urine clarityon 08-18-2021 Clarity (U) Clear Clear [facility] Work Phone: Urine color determinationon 08-18-2021 Color (U) Yellow Yellow [facility] Work Phone: Urine glucose detectionon Glucose Ql (U) Normal mg/dl Normal [facility] Work Phone: Urine leukocyte esterase det ection by dipstickon 08-18-2021 Leukocyte esterase Test strip Ql (U) Negative Negative [facility] Work Phone: Urine pHon 08-18-2021 pH (U) 7.0 [pH] 5.0 - 8.0 [facility] Work Phone: Urine sediment bacteria coun t by microscopy (number/high power field)on 08-18-2021 Bacteria LM.HPF (Urine sed) [#/Area] 0 /[HPF] None Seen [facility] Work Phone: Urine specific gravity measu rementon 08-18-2021 Specific gravity (U) [Rel density] 1.010 1.002-1.030 [facility] Work Phone: Urobilinogen Auto test strip Ql (U)on 08-18-2021 Urobilinogen Ql (U) 4 mg/dl Normal [facility] Work Phone: Absolute lymphocyte counton 08-16-2021 Lymphocytes Auto (Unsp spec) [#/Vol] 1.71 10*3/uL 0.83-4.51 [facility] Work Phone: Basophil percentageon 2021 Basophils/100 WBC (Bld) 0.3 % 0-1 [facility] Work Phone: Eosinophils/100 WBC (Bld) 0.2 % 0-5 [facility] Work Phone: Neutrophils (Bld) [#/Vol] 8.6 10*3/uL 2.0-7.7 [facility] Work Phone: Neutrophils/100 WBC (Bld) 76.8 % 47-70 [facility] Work Phone: WBC (Bld) [#/Vol] 11.2 10*3/uL 4.4-11.0 [facility] Work Phone: Blood erythrocytes count (nu mber/volume)on 08-16-2021 RBC (Bld) [#/Vol] 4.42 10*6/uL 4.6-6.2 [facility] Work Phone: Blood hemoglobin measurement (mass/volume)on 08-16-2021 Hemoglobin (Bld) [Mass/Vol] 13.4 g/dL 13.0-16.5 [facility] Work Phone: Blood lymphocytes/100 leukoc yteson 08-16-2021 Lymphocytes/100 WBC (Bld) 15.2 % 19-41 [facility] Work Phone: Blood monocytes/100 leukocyt eson 08-16-2021 Monocytes/100 WBC (Bld) 7.1 % 0-10 [facility] Work Phone: Blood platelet mean volumeon 08-16-2021 Platelet mean volume (Bld) [Entitic vol] 11.0 fL 6.2-12.0 [facility] Work Phone: Determination of erythrocyte mean corpuscular volume (MCV)on 08-16-2021 MCV (RBC) [Entitic vol] 91.9 fL 80-94 [facility] Work Phone: Hematocrit Auto (Bld) [Volum e fraction]on 08-16-2021 Hematocrit (Bld) [Volume fraction] 40.6 % 40-54 [facility] Work Phone: Laboratory - Hematology and Cell countson 08-16-2021 Erythrocyte distribution width (RBC) [Entitic vol] 43.0 fL 35.1-43.9 [facility] Work Phone: Erythrocyte distribution width (RBC) [Ratio] 12.7 % 11.6-14.6 [facility] Work Phone: Immature granulocytes/100 WBC (Bld) 0.400 % 0.0-0.9 [facility] Work Phone: Comment on above: IG% - Immature Granu locytes (promyelocytes, myelocytes and metamyelocytes) > 1% indicates that a LEFT SHIFT is Present. MCH (RBC) [Entitic mass] 30.3 pg 27.0-32.0 [facility] Work Phone: Nucleated RBC/100 WBC (Bld) [Ratio] 0 % 0-5 [facility] Work Phone: MCHC Auto (RBC) [Mass/Vol]on 08-16-2021 MCHC (RBC) [Mass/Vol] 33.0 g/dL 32-36 [facility] Work Phone: Platelets bldon 08-16-2021 Platelets (Bld) [#/Vol] 187 10*3/uL 150-450 [facility] Work Phone: Absolute lymphocyte counton 08-09-2021 Lymphocytes Auto (Unsp spec) [#/Vol] 1.78 10*3/uL 0.83-4.51 [facility] Work Phone: Basophil percentageon 2021 Basophils/100 WBC (Bld) 0.5 % 0-1 [facility] Work Phone: [phone] Eosinophils/100 WBC (Bld) 0.1 % 0-5 [facility] Work Phone: Neutrophils (Bld) [#/Vol] 6.0 10*3/uL 2.0-7.7 [facility] Work Phone: Neutrophils/100 WBC (Bld) 71.3 % 47-70 [facility] Work Phone: WBC (Bld) [#/Vol] 8.4 10*3/uL 4.4-11.0 [facility]: Blood erythrocytes count (nu mber/volume)on 08-09-2021 RBC (Bld) [#/Vol] 4.37 10*6/uL 4.6-6.2 [facility] Work Phone: Blood hemoglobin measurement (mass/volume)on 08-09-2021 Hemoglobin (Bld) [Mass/Vol] 13.5 g/dL 13.0-16.5 [facility] Work Phone: Blood lymphocytes/100 leukoc yteson 08-09-2021 Lymphocytes/100 WBC (Bld) 21.2 % 19-41 [facility] Work Phone: [phone] Blood monocytes/100 leukocyt eson 08-09-2021 Monocytes/100 WBC (Bld) 6.5 % 0-10 [facility] Work Phone: Blood platelet mean volumeon 08-09-2021 Platelet mean volume (Bld) [Entitic vol] 11.1 fL 6.2-12.0 [facility] Work Phone: Determination of erythrocyte mean corpuscular volume (MCV)on 08-09-2021 MCV (RBC) [Entitic vol] 91.3 fL 80-94 [facility] Work Phone: Hematocrit Auto (Bld) [Volum e fraction]on 08-09-2021 Hematocrit (Bld) [Volume fraction] 39.9 % 40-54 [facility] Work Phone: Laboratory - Hematology and Cell countson 08-09-2021 Erythrocyte distribution width (RBC) [Entitic vol] 41.4 fL 35.1-43.9 [facility] Work Phone: Erythrocyte distribution width (RBC) [Ratio] 12.5 % 11.6-14.6 [facility] Work Phone: Immature granulocytes/100 WBC (Bld) 0.400 % 0.0-0.9 [facility] Work Phone: Comment on above: IG% - Immature Granu locytes (promyelocytes, myelocytes and metamyelocytes) > 1% indicates that a LEFT SHIFT is Present. MCH (RBC) [Entitic mass] 30.9 pg 27.0-32.0 [facility] Work Phone: Nucleated RBC/100 WBC (Bld) [Ratio] 0 % 0-5 [facility] Work Phone: MCHC Auto (RBC) [Mass/Vol]on 08-09-2021 MCHC (RBC) [Mass/Vol] 33.8 g/dL 32-36 [facility] Work Phone: Platelets bldon 08-09-2021 Platelets (Bld) [#/Vol] 177 10*3/uL 150-450 [facility] Work Phone: Absolute lymphocyte counton 08-02-2021 Lymphocytes Auto (Unsp spec) [#/Vol] 1.69 10*3/uL 0.83-4.51 [facility] Work Phone: Basophil percentageon 2021 Basophils/100 WBC (Bld) 0.3 % 0-1 [facility] Work Phone: Eosinophils/100 WBC (Bld) 0.3 % 0-5 [facility] Work Phone: Neutrophils (Bld) [#/Vol] 3.8 10*3/uL 2.0-7.7 [facility] Work Phone: Neutrophils/100 WBC (Bld) 61.9 % 47-70 [facility] Work Phone: WBC (Bld) [#/Vol] 6.1 10*3/uL 4.4-11.0 [facility] Work Phone: Blood erythrocytes count (nu mber/volume)on 08-02-2021 RBC (Bld) [#/Vol] 4.54 10*6/uL 4.6-6.2 [facility] Work Phone: Blood hemoglobin measurement (mass/volume)on 08-02-2021 Hemoglobin (Bld) [Mass/Vol] 13.8 g/dL 13.0-16.5 [facility] Work Phone: Blood lymphocytes/100 leukoc yteson 08-02-2021 Lymphocytes/100 WBC (Bld) 27.7 % 19-41 [facility] Work Phone: Blood monocytes/100 leukocyt eson 08-02-2021 Monocytes/100 WBC (Bld) 9.5 % 0-10 [facility] Work Phone: Blood platelet mean volumeon 08-02-2021 Platelet mean volume (Bld) [Entitic vol] 11.2 fL 6.2-12.0 [facility] Work Phone: Determination of erythrocyte mean corpuscular volume (MCV)on 08-02-2021 MCV (RBC) [Entitic vol] 90.1 fL 80-94 [facility] Work Phone: Hematocrit Auto (Bld) [Volum e fraction]on 08-02-2021 Hematocrit (Bld) [Volume fraction] 40.9 % 40-54 [facility] Work Phone: Laboratory - Hematology and Cell countson 08-02-2021 Erythrocyte distribution width (RBC) [Entitic vol] 40.3 fL 35.1-43.9 [facility] Work Phone: Erythrocyte distribution width (RBC) [Ratio] 12.4 % 11.6-14.6 [facility] Work Phone: Immature granulocytes/100 WBC (Bld) 0.300 % 0.0-0.9 [facility] Work Phone: Comment on above: IG% - Immature Granu locytes (promyelocytes, myelocytes and metamyelocytes) > 1% indicates that a LEFT SHIFT is Present. MCH (RBC) [Entitic mass] 30.4 pg 27.0-32.0 [facility] Work Phone: Nucleated RBC/100 WBC (Bld) [Ratio] 0 % 0-5 [facility] Work Phone: MCHC Auto (RBC) [Mass/Vol]on 08-02-2021 MCHC (RBC) [Mass/Vol] 33.7 g/dL 32-36 [facility] Work Phone: Platelets bldon 08-02-2021 Platelets (Bld) [#/Vol] 192 10*3/uL 150-450 [facility] Work Phone: [phone] Absolute lymphocyte counton 07-26-2021 Lymphocytes Auto (Unsp spec) [#/Vol] 1.83 10*3/uL 0.83-4.51 [facility] Work Phone: Basophil percentageon 2021 Basophils/100 WBC (Bld) 0.5 % 0-1 [facility] Work Phone: Eosinophils/100 WBC (Bld) 0.3 % 0-5 [facility] Work Phone: Neutrophils (Bld) [#/Vol] 3.3 10*3/uL 2.0-7.7 [facility] Work Phone: Neutrophils/100 WBC (Bld) 58.1 % 47-70 [facility] Work Phone: WBC (Bld) [#/Vol] 5.7 10*3/uL 4.4-11.0 [facility] Work Phone: Blood erythrocytes count (nu mber/volume)on 07-26-2021 RBC (Bld) [#/Vol] 4.21 10*6/uL 4.6-6.2 [facility] Work [facility]: Blood hemoglobin measurement (mass/volume)on 07-26-2021 Hemoglobin (Bld) [Mass/Vol] 12.9 g/dL 13.0-16.5 [facility] Work Phone: Blood lymphocytes/100 leukoc yteson 07-26-2021 Lymphocytes/100 WBC (Bld) 31.9 % 19-41 [facility] Work Phone: Blood monocytes/100 leukocyt eson 07-26-2021 Monocytes/100 WBC (Bld) 8.9 % 0-10 [facility] Work Phone: Blood platelet mean volumeon 07-26-2021 Platelet mean volume (Bld) [Entitic vol] 11.5 fL 6.2-12.0 [facility] Work Phone: Determination of erythrocyte mean corpuscular volume (MCV)on 07-26-2021 MCV (RBC) [Entitic vol] 90.7 fL 80-94 [facility] Work Phone: Hematocrit Auto (Bld) [Volum e fraction]on 07-26-2021 Hematocrit (Bld) [Volume fraction] 38.2 % 40-54 [facility] Work Phone: Laboratory - Hematology and Cell countson 07-26-2021 Erythrocyte distribution width (RBC) [Entitic vol] 41.2 fL 35.1-43.9 [facility] Work Phone: Erythrocyte distribution width (RBC) [Ratio] 12.5 % 11.6-14.6 [facility] Work Phone: Immature granulocytes/100 WBC (Bld) 0.300 % 0.0-0.9 [facility] Work Phone: Comment on above: IG% - Immature Granu locytes (promyelocytes, myelocytes and metamyelocytes) > 1% indicates that a LEFT SHIFT is Present. MCH (RBC) [Entitic mass] 30.6 pg 27.0-32.0 [facility] Work Phone: Nucleated RBC/100 WBC (Bld) [Ratio] 0 % 0-5 [facility] Work Phone: MCHC Auto (RBC) [Mass/Vol]on 07-26-2021 MCHC (RBC) [Mass/Vol] 33.8 g/dL 32-36 [facility] Work Phone: Platelets bldon 07-26-2021 Platelets (Bld) [#/Vol] 180 10*3/uL 150-450 [facility] Work Phone: Absolute lymphocyte counton 07-19-2021 Lymphocytes Auto (Unsp spec) [#/Vol] 2.04 10*3/uL 0.83-4.51 [facility] Work Phone: Basophil percentageon 2021 Basophils/100 WBC (Bld) 0.3 % 0-1 [facility] Work Phone: Eosinophils/100 WBC (Bld) 0.4 % 0-5 [facility] Work Phone: Neutrophils (Bld) [#/Vol] 4.0 10*3/uL 2.0-7.7 [facility] Work Phone: Neutrophils/100 WBC (Bld) 59.2 % 47-70 [facility] Work Phone: WBC (Bld) [#/Vol] 6.7 10*3/uL 4.4-11.0 [facility] Work Phone: Blood erythrocytes count (nu mber/volume)on 07-19-2021 RBC (Bld) [#/Vol] 4.53 10*6/uL 4.6-6.2 [facility]: Blood hemoglobin measurement (mass/volume)on 07-19-2021 Hemoglobin (Bld) [Mass/Vol] 14.1 g/dL 13.0-16.5 [facility] Work Phone: Blood lymphocytes/100 leukoc yteson 07-19-2021 Lymphocytes/100 WBC (Bld) 30.5 % 19-41 [facility] Work Phone: Blood monocytes/100 leukocyt eson 07-19-2021 Monocytes/100 WBC (Bld) 9.0 % 0-10 [facility] Work Phone: Blood platelet mean volumeon 07-19-2021 Platelet mean volume (Bld) [Entitic vol] 11.4 fL 6.2-12.0 [facility] Work Phone: Determination of erythrocyte mean corpuscular volume (MCV)on 07-19-2021 MCV (RBC) [Entitic vol] 90.5 fL 80-94 [facility] Work Phone: Hematocrit Auto (Bld) [Volum e fraction]on 07-19-2021 Hematocrit (Bld) [Volume fraction] 41.0 % 40-54 [facility] Work Phone: Laboratory - Hematology and Cell countson 07-19-2021 Erythrocyte distribution width (RBC) [Entitic vol] 41.1 fL 35.1-43.9 [facility] Work Phone: Erythrocyte distribution width (RBC) [Ratio] 12.5 % 11.6-14.6 [facility] Work Phone: Immature granulocytes/100 WBC (Bld) 0.600 % 0.0-0.9 [facility] Work Phone: Comment on above: IG% - Immature Granu locytes (promyelocytes, myelocytes and metamyelocytes) > 1% indicates that a LEFT SHIFT is Present. MCH (RBC) [Entitic mass] 31.1 pg 27.0-32.0 [facility] Work Phone: Nucleated RBC/100 WBC (Bld) [Ratio] 0 % 0-5 [facility] Work Phone: MCHC Auto (RBC) [Mass/Vol]on 07-19-2021 MCHC (RBC) [Mass/Vol] 34.4 g/dL 32-36 [facility] Work Phone: Platelets bldon 07-19-2021 Platelets (Bld) [#/Vol] 193 10*3/uL 150-450 [facility] Work Phone: Absolute lymphocyte counton 07-12-2021 Lymphocytes Auto (Unsp spec) [#/Vol] 1.42 10*3/uL 0.83-4.51 [facility] Work Phone: Basophil percentageon 2021 Basophils/100 WBC (Bld) 0.6 % 0-1 [facility] Work Phone: [phone] Eosinophils/100 WBC (Bld) 0.3 % 0-5 [facility] Work Phone: Neutrophils (Bld) [#/Vol] 4.7 10*3/uL 2.0-7.7 [facility] Work Phone: Neutrophils/100 WBC (Bld) 67.3 % 47-70 [facility] Work Phone: WBC (Bld) [#/Vol] 7.0 10*3/uL 4.4-11.0 [facility] Work Phone: Blood erythrocytes count (nu mber/volume)on 07-12-2021 RBC (Bld) [#/Vol] 4.61 10*6/uL 4.6-6.2 [facility] Work [facility]: Blood hemoglobin measurement (mass/volume)on 07-12-2021 Hemoglobin (Bld) [Mass/Vol] 14.4 g/dL 13.0-16.5 [facility] Work Phone: Blood lymphocytes/100 leukoc yteson 07-12-2021 Lymphocytes/100 WBC (Bld) 20.4 % 19-41 [facility] Work Phone: [phone] Blood monocytes/100 leukocyt eson 07-12-2021 Monocytes/100 WBC (Bld) 11.1 % 0-10 [facility] Work Phone: Blood platelet mean volumeon 07-12-2021 Platelet mean volume (Bld) [Entitic vol] 11.2 fL 6.2-12.0 [facility] Work Phone: Determination of erythrocyte mean corpuscular volume (MCV)on 07-12-2021 MCV (RBC) [Entitic vol] 91.1 fL 80-94 [facility] Work Phone: Hematocrit Auto (Bld) [Volum e fraction]on 07-12-2021 Hematocrit (Bld) [Volume fraction] 42.0 % 40-54 [facility] Work Phone: Laboratory - Hematology and Cell countson 07-12-2021 Erythrocyte distribution width (RBC) [Entitic vol] 41.4 fL 35.1-43.9 [facility] Work Phone: Erythrocyte distribution width (RBC) [Ratio] 12.6 % 11.6-14.6 [facility] Work Phone: Immature granulocytes/100 WBC (Bld) 0.300 % 0.0-0.9 [facility] Work Phone: Comment on above: IG% - Immature Granu locytes (promyelocytes, myelocytes and metamyelocytes) > 1% indicates that a LEFT SHIFT is Present. MCH (RBC) [Entitic mass] 31.2 pg 27.0-32.0 [facility] Work Phone: Nucleated RBC/100 WBC (Bld) [Ratio] 0 % 0-5 [facility] Work Phone: MCHC Auto (RBC) [Mass/Vol]on 07-12-2021 MCHC (RBC) [Mass/Vol] 34.3 g/dL 32-36 [facility] Work Phone: Platelets bldon 07-12-2021 Platelets (Bld) [#/Vol] 184 10*3/uL 150-450 [facility] Work Phone: Absolute lymphocyte counton 07-05-2021 Lymphocytes Auto (Unsp spec) [#/Vol] 1.55 10*3/uL 0.83-4.51 [facility] Work Phone: Basophil percentageon 2021 Basophils/100 WBC (Bld) 0.4 % 0-1 [facility] Work Phone: Cholesterol [Mass/Vol] 148 mg/dL <200 [facility] Work Phone: Comment on above: <200 mg/dL Desirable 200-240 mg/dL Borderline >240 mg/dL High Risk Eosinophils/100 WBC (Bld) 0.3 % 0-5 [facility] Work Phone: Neutrophils (Bld) [#/Vol] 5.5 10*3/uL 2.0-7.7 [facility] Work Phone: Neutrophils/100 WBC (Bld) 70.9 % 47-70 [facility] Work Phone: Triglyceride [Mass/Vol] 201 mg/dL <199 [facility] Work Phone: Comment on above: The drugs N-Acetylcy steine and Metamizole may falsely depress this assay.Serum Triglycerides Reference Interval Normal <150 mg/dL Borderline high 150 - 199 mg/dL High 200 - 499 mg/dL Very High > or = 500 mg/dL WBC (Bld) [#/Vol] 7.8 10*3/uL 4.4-11.0 [facility] Work Phone: Blood erythrocytes count (nu mber/volume)on 07-05-2021 RBC (Bld) [#/Vol] 4.46 10*6/uL 4.6-6.2 [facility] Work Phone: Blood hemoglobin measurement (mass/volume)on 07-05-2021 Hemoglobin (Bld) [Mass/Vol] 13.4 g/dL 13.0-16.5 [facility] Work Phone: Blood lymphocytes/100 leukoc yteson 07-05-2021 Lymphocytes/100 WBC (Bld) 20.0 % 19-41 [facility] Work Phone: Blood monocytes/100 leukocyt eson 07-05-2021 Monocytes/100 WBC (Bld) 8.1 % 0-10 [facility] Work Phone: Blood platelet mean volumeon 07-05-2021 Platelet mean volume (Bld) [Entitic vol] 11.7 fL 6.2-12.0 [facility] Work Phone: Determination of erythrocyte mean corpuscular volume (MCV)on 07-05-2021 MCV (RBC) [Entitic vol] 91.0 fL 80-94 [facility] Work Phone: Hematocrit Auto (Bld) [Volum e fraction]on 07-05-2021 Hematocrit (Bld) [Volume fraction] 40.6 % 40-54 [facility] Work Phone: Laboratory - Hematology and Cell countson 07-05-2021 Erythrocyte distribution width (RBC) [Entitic vol] 41.9 fL 35.1-43.9 [facility] Work Phone: Erythrocyte distribution width (RBC) [Ratio] 12.8 % 11.6-14.6 [facility] Work Phone: Immature granulocytes/100 WBC (Bld) 0.300 % 0.0-0.9 [facility] Work Phone: Comment on above: IG% - Immature Granu locytes (promyelocytes, myelocytes and metamyelocytes) > 1% indicates that a LEFT SHIFT is Present. MCH (RBC) [Entitic mass] 30.0 pg 27.0-32.0 [facility] Work Phone: Nucleated RBC/100 WBC (Bld) [Ratio] 0 % 0-5 [facility] Work Phone: MCHC Auto (RBC) [Mass/Vol]on 07-05-2021 MCHC (RBC) [Mass/Vol] 33.0 g/dL 32-36 [facility] Work Phone: Platelets bldon 07-05-2021 Platelets (Bld) [#/Vol] 186 10*3/uL 150-450 [facility] Work Phone: Serum or plasma cholesterol in HDL measurement (mass/volume)on 07-05-2021 Cholesterol in HDL [Mass/Vol] 30 mg/dL >40 [facility] Work Phone: Comment on above: The drugs N-Acetylcy steine and Metamizole may falsely depress this assay. Reference Range HDL <40 mg/dL Low HDL Cholesterol HDL >or= 60 mg/dL High HDL Cholesterol Serum or plasma cholesterol in VLDL measurement (mass/volume)on 07-05-2021 Cholesterol in VLDL [Mass/Vol] 40 mg/dL 5-40 [facility] Work Phone: Serum or plasma low density lipoprotein (LDL) cholesterol measurement (mass/volume)on 07-05-2021 Cholesterol in LDL [Mass/Vol] 78 mg/dL 0-130 [facility] Work Phone: Absolute lymphocyte counton 06-28-2021 Lymphocytes Auto (Unsp spec) [#/Vol] 2.01 10*3/uL 0.83-4.51 [facility] Work Phone: [phone] Basophil percentageon 2021 Basophils/100 WBC (Bld) 0.5 % 0-1 [facility] Work Phone: Eosinophils/100 WBC (Bld) 0.3 % 0-5 [facility] Work Phone: Neutrophils (Bld) [#/Vol] 3.3 10*3/uL 2.0-7.7 [facility] Work Phone: Neutrophils/100 WBC (Bld) 55.5 % 47-70 [facility] Work Phone: WBC (Bld) [#/Vol] 6.0 10*3/uL 4.4-11.0 [facility] Work Phone: Blood erythrocytes count (nu mber/volume)on 06-28-2021 RBC (Bld) [#/Vol] 4.32 10*6/uL 4.6-6.2 [facility] Work [facility]: Blood hemoglobin measurement (mass/volume)on 06-28-2021 Hemoglobin (Bld) [Mass/Vol] 13.5 g/dL 13.0-16.5 [facility] Work Phone: Blood lymphocytes/100 leukoc yteson 06-28-2021 Lymphocytes/100 WBC (Bld) 33.5 % 19-41 [facility] Work Phone: Blood monocytes/100 leukocyt eson 06-28-2021 Monocytes/100 WBC (Bld) 10.0 % 0-10 [facility] Work Phone: Blood platelet mean volumeon 06-28-2021 Platelet mean volume (Bld) [Entitic vol] 11.8 fL 6.2-12.0 [facility] Work Phone: Determination of erythrocyte mean corpuscular volume (MCV)on 06-28-2021 MCV (RBC) [Entitic vol] 89.8 fL 80-94 [facility] Work Phone: Hematocrit Auto (Bld) [Volum e fraction]on 06-28-2021 Hematocrit (Bld) [Volume fraction] 38.8 % 40-54 [facility] Work Phone: Laboratory - Hematology and Cell countson 06-28-2021 Erythrocyte distribution width (RBC) [Entitic vol] 40.6 fL 35.1-43.9 [facility] Work Phone: Erythrocyte distribution width (RBC) [Ratio] 12.5 % 11.6-14.6 [facility] Work Phone: Immature granulocytes/100 WBC (Bld) 0.200 % 0.0-0.9 [facility] Work Phone: Comment on above: IG% - Immature Granu locytes (promyelocytes, myelocytes and metamyelocytes) > 1% indicates that a LEFT SHIFT is Present. MCH (RBC) [Entitic mass] 31.3 pg 27.0-32.0 [facility] Work Phone: Nucleated RBC/100 WBC (Bld) [Ratio] 0 % 0-5 [facility] Work Phone: [phone] MCHC Auto (RBC) [Mass/Vol]on 06-28-2021 MCHC (RBC) [Mass/Vol] 34.8 g/dL 32-36 [facility] Work Phone: [phone] Platelets bldon 06-28-2021 Platelets (Bld) [#/Vol] 185 10*3/uL 150-450 [facility] Work Phone: [phone] Absolute lymphocyte counton 06-21-2021 Lymphocytes Auto (Unsp spec) [#/Vol] 1.78 10*3/uL 0.83-4.51 [facility] Work Phone: Basophil percentageon 2021 Basophils/100 WBC (Bld) 0.3 % 0-1 [facility] Work Phone: [phone] Eosinophils/100 WBC (Bld) 0.4 % 0-5 [facility] Work Phone: [phone] Neutrophils (Bld) [#/Vol] 4.2 10*3/uL 2.0-7.7 [facility] Work Phone: [phone] Neutrophils/100 WBC (Bld) 62.7 % 47-70 [facility] Work Phone: [phone] WBC (Bld) [#/Vol] 6.8 10*3/uL 4.4-11.0 [facility]: [phone] Blood erythrocytes count (nu mber/volume)on 06-21-2021 RBC (Bld) [#/Vol] 4.21 10*6/uL 4.6-6.2 [facility] Work [facility]: Blood hemoglobin measurement (mass/volume)on 06-21-2021 Hemoglobin (Bld) [Mass/Vol] 13.3 g/dL 13.0-16.5 [facility] Work Phone: Blood lymphocytes/100 leukoc yteson 06-21-2021 Lymphocytes/100 WBC (Bld) 26.3 % 19-41 [facility] Work Phone: Blood monocytes/100 leukocyt eson 06-21-2021 Monocytes/100 WBC (Bld) 9.9 % 0-10 [facility] Work Phone: Blood platelet mean volumeon 06-21-2021 Platelet mean volume (Bld) [Entitic vol] 11.5 fL 6.2-12.0 [facility] Work Phone: Determination of erythrocyte mean corpuscular volume (MCV)on 06-21-2021 MCV (RBC) [Entitic vol] 91.0 fL 80-94 [facility] Work Phone: Hematocrit Auto (Bld) [Volum e fraction]on 06-21-2021 Hematocrit (Bld) [Volume fraction] 38.3 % 40-54 [facility] Work Phone: Laboratory - Hematology and Cell countson 06-21-2021 Erythrocyte distribution width (RBC) [Entitic vol] 40.2 fL 35.1-43.9 [facility] Work Phone: Erythrocyte distribution width (RBC) [Ratio] 12.2 % 11.6-14.6 [facility] Work Phone: Immature granulocytes/100 WBC (Bld) 0.400 % 0.0-0.9 [facility] Work Phone: Comment on above: IG% - Immature Granu locytes (promyelocytes, myelocytes and metamyelocytes) > 1% indicates that a LEFT SHIFT is Present. MCH (RBC) [Entitic mass] 31.6 pg 27.0-32.0 [facility] Work Phone: Nucleated RBC/100 WBC (Bld) [Ratio] 0 % 0-5 [facility] Work Phone: MCHC Auto (RBC) [Mass/Vol]on 06-21-2021 MCHC (RBC) [Mass/Vol] 34.7 g/dL 32-36 [facility] Work Phone: Platelets bldon 06-21-2021 Platelets (Bld) [#/Vol] 217 10*3/uL 150-450 [facility] Work Phone: Absolute lymphocyte counton 06-14-2021 Lymphocytes Auto (Unsp spec) [#/Vol] 1.41 10*3/uL 0.83-4.51 [facility] Work Phone: Basophil percentageon 2021 Basophils/100 WBC (Bld) 0.4 % 0-1 [facility] Work Phone: [phone] Chloride [Moles/Vol] 106 mmol/L 98-107 [facility] Work Phone: [phone] Eosinophils/100 WBC (Bld) 0.6 % 0-5 [facility] Work Phone: [phone] Glucose [Mass/Vol] 121 mg/dL 74-106 [facility] Work Phone: Comment on above: Fasting Glucose resu lt from 100 to 125 mg/dL suggests IMPAIRED HOMEOSTASIS per A.D.A. criteria. Neutrophils (Bld) [#/Vol] 4.8 10*3/uL 2.0-7.7 [facility] Work Phone: [phone] Neutrophils/100 WBC (Bld) 69.9 % 47-70 [facility] Work Phone: [phone] Potassium [Moles/Vol] 3.7 mmol/L 3.5-5.1 [facility] Work Phone: [phone] Sodium [Moles/Vol] 140 mmol/L 136-145 [facility] Work Phone: WBC (Bld) [#/Vol] 6.8 10*3/uL 4.4-11.0 [facility] Work Phone: [phone] Blood erythrocytes count (nu mber/volume)on 06-14-2021 RBC (Bld) [#/Vol] 4.78 10*6/uL 4.6-6.2 [facility] Work Phone: Blood hemoglobin measurement (mass/volume)on 06-14-2021 Hemoglobin (Bld) [Mass/Vol] 14.9 g/dL 13.0-16.5 [facility] Work Phone: Blood lymphocytes/100 leukoc yteson 06-14-2021 Lymphocytes/100 WBC (Bld) 20.8 % 19-41 [facility] Work Phone: Blood monocytes/100 leukocyt eson 06-14-2021 Monocytes/100 WBC (Bld) 7.7 % 0-10 [facility] Work Phone: Blood platelet mean volumeon 06-14-2021 Platelet mean volume (Bld) [Entitic vol] 11.5 fL 6.2-12.0 [facility] Work Phone: Determination of erythrocyte mean corpuscular volume (MCV)on 06-14-2021 MCV (RBC) [Entitic vol] 89.5 fL 80-94 [facility] Work Phone: Hematocrit Auto (Bld) [Volum e fraction]on 06-14-2021 Hematocrit (Bld) [Volume fraction] 42.8 % 40-54 [facility] Work Phone: Laboratory - Chemistry and C hemistry - challengeon 06-14-2021 CO2 [Moles/Vol] 27.0 mmol/L 21.0-32.0 [facility] Work Phone: Urea nitrogen/Creatinine [Mass ratio] 35.0 mg/mg 10-20 [facility] Work Phone: Laboratory - Hematology and Cell countson 06-14-2021 Erythrocyte distribution width (RBC) [Entitic vol] 39.3 fL 35.1-43.9 [facility] Work Phone: Erythrocyte distribution width (RBC) [Ratio] 12.0 % 11.6-14.6 [facility] Work Phone: Immature granulocytes/100 WBC (Bld) 0.600 % 0.0-0.9 [facility] Work Phone: Comment on above: IG% - Immature Granu locytes (promyelocytes, myelocytes and metamyelocytes) > 1% indicates that a LEFT SHIFT is Present. MCH (RBC) [Entitic mass] 31.2 pg 27.0-32.0 [facility] Work Phone: Nucleated RBC/100 WBC (Bld) [Ratio] 0 % 0-5 [facility] Work Phone: MCHC Auto (RBC) [Mass/Vol]on 06-14-2021 MCHC (RBC) [Mass/Vol] 34.8 g/dL 32-36 [facility] Work Phone: No Panel Informationon 06-14 Estimated GFR (MDRD) Amer 185 mL/min >60 [facility] Work Phone: Comment on above: GFR Calc Estimated GFR (MDRD) Non-Af Amer 153 mL/min >60 [facility] Work Phone: Comment on above: Non- GFR Calc Platelets bldon 06-14-2021 Platelets (Bld) [#/Vol] 223 10*3/uL 150-450 [facility] Work Phone: Serum or plasma calcium gordy urement (mass/volume)on 06-14-2021 Calcium [Mass/Vol] 8.0 mg/dL 8.5-10.1 [facility] Work Phone: Serum or plasma creatinine m easurement (mass/volume)on 06-14-2021 Creatinine [Mass/Vol] 0.57 mg/dL 0.70-1.30 [facility] Work Phone: Comment on above: The validity of the calculated GFR & GFRAA in patients over 70 years has not been determined. Clinical correlation is essential. Serum or plasma urea nitroge n measurement (mass/volume)on 06-14-2021 Urea nitrogen [Mass/Vol] 20 mg/dL 7-18 [facility] Work Phone: Thin prep Papanicolaou smear with manual screeningon 06-14-2021 Thin prep Papanicolaou smear with manual screening 7 5-15 [facility] Work Phone: Absolute lymphocyte counton 06-07-2021 Lymphocytes Auto (Unsp spec) [#/Vol] 1.38 10*3/uL 0.83-4.51 [facility] Work Phone: Basophil percentageon 2021 Basophils/100 WBC (Bld) 0.2 % 0-1 [facility] Work Phone: Eosinophils/100 WBC (Bld) 0.0 % 0-5 [facility] Work Phone: Neutrophils (Bld) [#/Vol] 7.3 10*3/uL 2.0-7.7 [facility] Work Phone: Neutrophils/100 WBC (Bld) 75.3 % 47-70 [facility] Work Phone: WBC (Bld) [#/Vol] 9.7 10*3/uL 4.4-11.0 [facility] Work Phone: Blood erythrocytes count (nu mber/volume)on 06-07-2021 RBC (Bld) [#/Vol] 4.48 10*6/uL 4.6-6.2 [facility] Work Phone: Blood hemoglobin measurement (mass/volume)on 06-07-2021 Hemoglobin (Bld) [Mass/Vol] 13.8 g/dL 13.0-16.5 [facility] Work Phone: Blood lymphocytes/100 leukoc yteson 06-07-2021 Lymphocytes/100 WBC (Bld) 14.2 % 19-41 [facility] Work Phone: Blood monocytes/100 leukocyt eson 06-07-2021 Monocytes/100 WBC (Bld) 10.2 % 0-10 [facility] Work Phone: Blood platelet mean volumeon 06-07-2021 Platelet mean volume (Bld) [Entitic vol] 11.9 fL 6.2-12.0 [facility] Work Phone: Determination of erythrocyte mean corpuscular volume (MCV)on 06-07-2021 MCV (RBC) [Entitic vol] 92.9 fL 80-94 [facility] Work Phone: Hematocrit Auto (Bld) [Volum e fraction]on 06-07-2021 Hematocrit (Bld) [Volume fraction] 41.6 % 40-54 [facility] Work Phone: Laboratory - Hematology and Cell countson 06-07-2021 Erythrocyte distribution width (RBC) [Entitic vol] 43.8 fL 35.1-43.9 [facility] Work Phone: Erythrocyte distribution width (RBC) [Ratio] 12.8 % 11.6-14.6 [facility] Work Phone: Immature granulocytes/100 WBC (Bld) 0.100 % 0.0-0.9 [facility] Work Phone: Comment on above: IG% - Immature Granu locytes (promyelocytes, myelocytes and metamyelocytes) > 1% indicates that a LEFT SHIFT is Present. MCH (RBC) [Entitic mass] 30.8 pg 27.0-32.0 [facility] Work Phone: Nucleated RBC/100 WBC (Bld) [Ratio] 0 % 0-5 [facility] Work Phone: MCHC Auto (RBC) [Mass/Vol]on 06-07-2021 MCHC (RBC) [Mass/Vol] 33.2 g/dL 32-36 [facility] Work Phone: Platelets bldon 06-07-2021 Platelets (Bld) [#/Vol] 152 10*3/uL 150-450 [facility] Work Phone: Absolute lymphocyte counton 05-31-2021 Lymphocytes Auto (Unsp spec) [#/Vol] 1.72 10*3/uL 0.83-4.51 [facility] Work Phone: [phone] Basophil percentageon 2021 Basophils/100 WBC (Bld) 0.7 % 0-1 [facility] Work Phone: [phone] Eosinophils/100 WBC (Bld) 1.1 % 0-5 [facility] Work Phone: Neutrophils (Bld) [#/Vol] 3.3 10*3/uL 2.0-7.7 [facility] Work Phone: Neutrophils/100 WBC (Bld) 58.5 % 47-70 [facility] Work Phone: WBC (Bld) [#/Vol] 5.6 10*3/uL 4.4-11.0 [facility]: Blood erythrocytes count (nu mber/volume)on 05-31-2021 RBC (Bld) [#/Vol] 4.44 10*6/uL 4.6-6.2 [facility] Work [facility]: Blood hemoglobin measurement (mass/volume)on 05-31-2021 Hemoglobin (Bld) [Mass/Vol] 13.6 g/dL 13.0-16.5 [facility] Work Phone: Blood lymphocytes/100 leukoc yteson 05-31-2021 Lymphocytes/100 WBC (Bld) 30.7 % 19-41 [facility] Work Phone: Blood monocytes/100 leukocyt eson 05-31-2021 Monocytes/100 WBC (Bld) 8.6 % 0-10 [facility] Work Phone: Blood platelet mean volumeon 05-31-2021 Platelet mean volume (Bld) [Entitic vol] 11.2 fL 6.2-12.0 [facility] Work Phone: Determination of erythrocyte mean corpuscular volume (MCV)on 05-31-2021 MCV (RBC) [Entitic vol] 92.1 fL 80-94 [facility] Work Phone: Hematocrit Auto (Bld) [Volum e fraction]on 05-31-2021 Hematocrit (Bld) [Volume fraction] 40.9 % 40-54 [facility] Work Phone: Laboratory - Hematology and Cell countson 05-31-2021 Erythrocyte distribution width (RBC) [Entitic vol] 42.2 fL 35.1-43.9 [facility] Work Phone: Erythrocyte distribution width (RBC) [Ratio] 12.4 % 11.6-14.6 [facility] Work Phone: Immature granulocytes/100 WBC (Bld) 0.400 % 0.0-0.9 [facility] Work Phone: Comment on above: IG% - Immature Granu locytes (promyelocytes, myelocytes and metamyelocytes) > 1% indicates that a LEFT SHIFT is Present. MCH (RBC) [Entitic mass] 30.6 pg 27.0-32.0 [facility] Work Phone: Nucleated RBC/100 WBC (Bld) [Ratio] 0 % 0-5 [facility] Work Phone: MCHC Auto (RBC) [Mass/Vol]on 05-31-2021 MCHC (RBC) [Mass/Vol] 33.3 g/dL 32-36 [facility] Work Phone: Platelets bldon 05-31-2021 Platelets (Bld) [#/Vol] 189 10*3/uL 150-450 [facility] Work Phone: Absolute lymphocyte counton 05-24-2021 Lymphocytes Auto (Unsp spec) [#/Vol] 1.58 10*3/uL 0.83-4.51 [facility] Work Phone: [phone] Basophil percentageon 2021 Basophils/100 WBC (Bld) 0.8 % 0-1 [facility] Work Phone: Eosinophils/100 WBC (Bld) 2.4 % 0-5 [facility] Work Phone: Neutrophils (Bld) [#/Vol] 3.8 10*3/uL 2.0-7.7 [facility] Work Phone: Neutrophils/100 WBC (Bld) 60.3 % 47-70 [facility] Work Phone: WBC (Bld) [#/Vol] 6.3 10*3/uL 4.4-11.0 [facility]: Blood erythrocytes count (nu mber/volume)on 05-24-2021 RBC (Bld) [#/Vol] 4.50 10*6/uL 4.6-6.2 [facility] Work [facility]: Blood hemoglobin measurement (mass/volume)on 05-24-2021 Hemoglobin (Bld) [Mass/Vol] 13.7 g/dL 13.0-16.5 [facility] Work Phone: [phone] Blood lymphocytes/100 leukoc yteson 05-24-2021 Lymphocytes/100 WBC (Bld) 25.0 % 19-41 [facility] Work Phone: Blood monocytes/100 leukocyt eson 05-24-2021 Monocytes/100 WBC (Bld) 11.2 % 0-10 [facility] Work Phone: Blood platelet mean volumeon 05-24-2021 Platelet mean volume (Bld) [Entitic vol] 11.3 fL 6.2-12.0 [facility] Work Phone: [phone] Determination of erythrocyte mean corpuscular volume (MCV)on 05-24-2021 MCV (RBC) [Entitic vol] 92.9 fL 80-94 [facility] Work Phone: [phone] Hematocrit Auto (Bld) [Volum e fraction]on 05-24-2021 Hematocrit (Bld) [Volume fraction] 41.8 % 40-54 [facility] Work Phone: Laboratory - Hematology and Cell countson 05-24-2021 Erythrocyte distribution width (RBC) [Entitic vol] 42.8 fL 35.1-43.9 [facility] Work Phone: Erythrocyte distribution width (RBC) [Ratio] 12.6 % 11.6-14.6 [facility] Work Phone: Immature granulocytes/100 WBC (Bld) 0.300 % 0.0-0.9 [facility] Work Phone: Comment on above: IG% - Immature Granu locytes (promyelocytes, myelocytes and metamyelocytes) > 1% indicates that a LEFT SHIFT is Present. MCH (RBC) [Entitic mass] 30.4 pg 27.0-32.0 [facility] Work Phone: Nucleated RBC/100 WBC (Bld) [Ratio] 0 % 0-5 [facility] Work Phone: MCHC Auto (RBC) [Mass/Vol]on 05-24-2021 MCHC (RBC) [Mass/Vol] 32.8 g/dL 32-36 [facility] Work Phone: Platelets bldon 05-24-2021 Platelets (Bld) [#/Vol] 207 10*3/uL 150-450 [facility] Work Phone: Absolute lymphocyte counton 05-17-2021 Lymphocytes Auto (Unsp spec) [#/Vol] 1.59 10*3/uL 0.83-4.51 [facility] Work Phone: Basophil percentageon 2021 Basophils/100 WBC (Bld) 0.7 % 0-1 [facility] Work Phone: Eosinophils/100 WBC (Bld) 1.7 % 0-5 [facility] Work Phone: Neutrophils (Bld) [#/Vol] 3.5 10*3/uL 2.0-7.7 [facility] Work Phone: Neutrophils/100 WBC (Bld) 59.5 % 47-70 [facility] Work Phone: WBC (Bld) [#/Vol] 5.9 10*3/uL 4.4-11.0 [facility] Work Phone: Blood erythrocytes count (nu mber/volume)on 05-17-2021 RBC (Bld) [#/Vol] 4.35 10*6/uL 4.6-6.2 [facility] Work [facility]: Blood hemoglobin measurement (mass/volume)on 05-17-2021 Hemoglobin (Bld) [Mass/Vol] 13.4 g/dL 13.0-16.5 [facility] Work Phone: Blood lymphocytes/100 leukoc yteson 05-17-2021 Lymphocytes/100 WBC (Bld) 26.9 % 19-41 [facility] Work Phone: Blood monocytes/100 leukocyt eson 05-17-2021 Monocytes/100 WBC (Bld) 11.0 % 0-10 [facility] Work Phone: Blood platelet mean volumeon 05-17-2021 Platelet mean volume (Bld) [Entitic vol] 11.5 fL 6.2-12.0 [facility] Work Phone: Determination of erythrocyte mean corpuscular volume (MCV)on 05-17-2021 MCV (RBC) [Entitic vol] 92.9 fL 80-94 [facility] Work Phone: Hematocrit Auto (Bld) [Volum e fraction]on 05-17-2021 Hematocrit (Bld) [Volume fraction] 40.4 % 40-54 [facility] Work Phone: Laboratory - Hematology and Cell countson 05-17-2021 Erythrocyte distribution width (RBC) [Entitic vol] 43.4 fL 35.1-43.9 [facility] Work Phone: Erythrocyte distribution width (RBC) [Ratio] 12.7 % 11.6-14.6 [facility] Work Phone: Immature granulocytes/100 WBC (Bld) 0.200 % 0.0-0.9 [facility] Work Phone: Comment on above: IG% - Immature Granu locytes (promyelocytes, myelocytes and metamyelocytes) > 1% indicates that a LEFT SHIFT is Present. MCH (RBC) [Entitic mass] 30.8 pg 27.0-32.0 [facility] Work Phone: Nucleated RBC/100 WBC (Bld) [Ratio] 0 % 0-5 [facility] Work Phone: MCHC Auto (RBC) [Mass/Vol]on 05-17-2021 MCHC (RBC) [Mass/Vol] 33.2 g/dL 32-36 [facility] Work Phone: Platelets bldon 05-17-2021 Platelets (Bld) [#/Vol] 171 10*3/uL 150-450 [facility] Work Phone: ED Provider Noteon 2 ED Provider Note Emergency Department Encounter [facility] ED Patient: Kathya Hooper : 1955 [...] Solutions Timothy Burton DO 05/15/21 1530 Normal [facility] e[facility]OUnter Pt Name: [...] of [place] (more content not included)... Normal [facility] Basophil percentageon 2021 Chloride [Moles/Vol] 105 mmol/L 98-107 [facility] Work Phone: Glucose [Mass/Vol] 96 mg/dL 74-106 [facility] Work Phone: Potassium [Moles/Vol] 3.5 mmol/L 3.5-5.1 [facility] Work Phone: Sodium [Moles/Vol] 141 mmol/L 136-145 [facility] Work Phone: Laboratory - Chemistry and C hemistry - challengeon 05-14-2021 CO2 [Moles/Vol] 30.0 mmol/L 21.0-32.0 [facility] Work Phone: Urea nitrogen/Creatinine [Mass ratio] 39.2 mg/mg 10-20 [facility] Work Phone: No Panel Informationon 05-14 Estimated GFR (MDRD) Amer 210 mL/min >60 [facility] Work Phone: Comment on above: GFR Calc Estimated GFR (MDRD) Non-Af Amer 174 mL/min >60 [facility] Work Phone: Comment on above: Non- GFR Calc Serum or plasma calcium gordy urement (mass/volume)on 05-14-2021 Calcium [Mass/Vol] 8.4 mg/dL 8.5-10.1 [facility] Work Phone: Serum or plasma creatinine m easurement (mass/volume)on 05-14-2021 Creatinine [Mass/Vol] 0.51 mg/dL 0.70-1.30 [facility] Work Phone: Comment on above: The validity of the calculated GFR & GFRAA in patients over 70 years has not been determined. Clinical correlation is essential. Serum or plasma urea nitroge n measurement (mass/volume)on 05-14-2021 Urea nitrogen [Mass/Vol] 20 mg/dL 7-18 [facility] Work Phone: Thin prep Papanicolaou smear with manual screeningon 05-14-2021 Thin prep Papanicolaou smear with manual screening 6 5-15 [facility] Work Phone: Absolute lymphocyte counton 05-10-2021 Lymphocytes Auto (Unsp spec) [#/Vol] 1.65 10*3/uL 0.83-4.51 [facility] Work Phone: Basophil percentageon 2021 Basophils/100 WBC (Bld) 0.5 % 0-1 [facility] Work Phone: Eosinophils/100 WBC (Bld) 0.7 % 0-5 [facility] Work Phone: [phone] Neutrophils (Bld) [#/Vol] 5.6 10*3/uL 2.0-7.7 [facility] Work Phone: Neutrophils/100 WBC (Bld) 69.5 % 47-70 [facility] Work Phone: WBC (Bld) [#/Vol] 8.1 10*3/uL 4.4-11.0 [facility] Work Phone: Blood erythrocytes count (nu mber/volume)on 05-10-2021 RBC (Bld) [#/Vol] 4.52 10*6/uL 4.6-6.2 [facility] Work Phone: Blood hemoglobin measurement (mass/volume)on 05-10-2021 Hemoglobin (Bld) [Mass/Vol] 13.8 g/dL 13.0-16.5 [facility] Work Phone: Blood lymphocytes/100 leukoc yteson 05-10-2021 Lymphocytes/100 WBC (Bld) 20.4 % 19-41 [facility] Work Phone: Blood monocytes/100 leukocyt eson 05-10-2021 Monocytes/100 WBC (Bld) 8.4 % 0-10 [facility] Work Phone: Blood platelet mean volumeon 05-10-2021 Platelet mean volume (Bld) [Entitic vol] 11.3 fL 6.2-12.0 [facility] Work Phone: Determination of erythrocyte mean corpuscular volume (MCV)on 05-10-2021 MCV (RBC) [Entitic vol] 91.8 fL 80-94 [facility] Work Phone: Hematocrit Auto (Bld) [Volum e fraction]on 05-10-2021 Hematocrit (Bld) [Volume fraction] 41.5 % 40-54 [facility] Work Phone: Laboratory - Hematology and Cell countson 05-10-2021 Erythrocyte distribution width (RBC) [Entitic vol] 42.9 fL 35.1-43.9 [facility] Work Phone: Erythrocyte distribution width (RBC) [Ratio] 12.8 % 11.6-14.6 [facility] Work Phone: Immature granulocytes/100 WBC (Bld) 0.500 % 0.0-0.9 [facility] Work Phone: Comment on above: IG% - Immature Granu locytes (promyelocytes, myelocytes and metamyelocytes) > 1% indicates that a LEFT SHIFT is Present. MCH (RBC) [Entitic mass] 30.5 pg 27.0-32.0 [facility] Work Phone: Nucleated RBC/100 WBC (Bld) [Ratio] 0 % 0-5 [facility] Work Phone: MCHC Auto (RBC) [Mass/Vol]on 05-10-2021 MCHC (RBC) [Mass/Vol] 33.3 g/dL 32-36 [facility] Work Phone: Platelets bldon 05-10-2021 Platelets (Bld) [#/Vol] 191 10*3/uL 150-450 [facility] Work Phone: [phone] Absolute lymphocyte counton 05-03-2021 Lymphocytes Auto (Unsp spec) [#/Vol] 1.69 10*3/uL 0.83-4.51 [facility] Work Phone: Basophil percentageon 2021 Basophils/100 WBC (Bld) 0.6 % 0-1 [facility] Work Phone: [phone] Eosinophils/100 WBC (Bld) 0.7 % 0-5 [facility] Work Phone: Neutrophils (Bld) [#/Vol] 4.6 10*3/uL 2.0-7.7 [facility] Work Phone: [phone] Neutrophils/100 WBC (Bld) 64.4 % 47-70 [facility] Work Phone: WBC (Bld) [#/Vol] 7.2 10*3/uL 4.4-11.0 [facility] Work Phone: Blood erythrocytes count (nu mber/volume)on 05-03-2021 RBC (Bld) [#/Vol] 4.55 10*6/uL 4.6-6.2 [facility] Work Phone: Blood hemoglobin measurement (mass/volume)on 05-03-2021 Hemoglobin (Bld) [Mass/Vol] 14.0 g/dL 13.0-16.5 [facility] Work Phone: [phone] Blood lymphocytes/100 leukoc yteson 05-03-2021 Lymphocytes/100 WBC (Bld) 23.6 % 19-41 [facility] Work Phone: Blood monocytes/100 leukocyt eson 05-03-2021 Monocytes/100 WBC (Bld) 10.3 % 0-10 [facility] Work Phone: Blood platelet mean volumeon 05-03-2021 Platelet mean volume (Bld) [Entitic vol] 11.7 fL 6.2-12.0 [facility] Work Phone: Determination of erythrocyte mean corpuscular volume (MCV)on 05-03-2021 MCV (RBC) [Entitic vol] 93.2 fL 80-94 [facility] Work Phone: Hematocrit Auto (Bld) [Volum e fraction]on 05-03-2021 Hematocrit (Bld) [Volume fraction] 42.4 % 40-54 [facility] Work Phone: Laboratory - Hematology and Cell countson 05-03-2021 Erythrocyte distribution width (RBC) [Entitic vol] 44.2 fL 35.1-43.9 [facility] Work Phone: Erythrocyte distribution width (RBC) [Ratio] 13.1 % 11.6-14.6 [facility] Work Phone: Immature granulocytes/100 WBC (Bld) 0.400 % 0.0-0.9 [facility] Work Phone: Comment on above: IG% - Immature Granu locytes (promyelocytes, myelocytes and metamyelocytes) > 1% indicates that a LEFT SHIFT is Present. MCH (RBC) [Entitic mass] 30.8 pg 27.0-32.0 [facility] Work Phone: Nucleated RBC/100 WBC (Bld) [Ratio] 0 % 0-5 [facility] Work Phone: MCHC Auto (RBC) [Mass/Vol]on 05-03-2021 MCHC (RBC) [Mass/Vol] 33.0 g/dL 32-36 [facility] Work Phone: Platelets bldon 05-03-2021 Platelets (Bld) [#/Vol] 175 10*3/uL 150-450 [facility] Work Phone: [phone] Absolute lymphocyte counton 04-26-2021 Lymphocytes Auto (Unsp spec) [#/Vol] 1.68 10*3/uL 0.83-4.51 [facility] Work Phone: Basophil percentageon 2020 Eosinophils/100 WBC (Bld) 1.1 % 0-5 [facility] Work Phone: Neutrophils (Bld) [#/Vol] 4.5 10*3/uL 2.0-7.7 [facility] Work Phone: WBC (Bld) [#/Vol] 7.2 10*3/uL 4.4-11.0 [facility]: Blood erythrocytes count (nu mber/volume)on 04-26-2021 RBC (Bld) [#/Vol] 4.32 10*6/uL 4.6-6.2 [facility] Work Phone: Blood hemoglobin measurement (mass/volume)on 04-26-2021 Hemoglobin (Bld) [Mass/Vol] 13.5 g/dL 13.0-16.5 [facility] Work Phone: Blood lymphocytes/100 leukoc yteson 04-26-2021 Lymphocytes/100 WBC (Bld) 23.5 % 19-41 [facility] Work Phone: [phone] Blood monocytes/100 leukocyt eson 04-26-2021 Monocytes/100 WBC (Bld) 11.0 % 0-10 [facility] Work Phone: Blood platelet mean volumeon 04-26-2021 Platelet mean volume (Bld) [Entitic vol] 11.0 fL 6.2-12.0 [facility] Work Phone: Determination of erythrocyte mean corpuscular volume (MCV)on 04-26-2021 MCV (RBC) [Entitic vol] 93.3 fL 80-94 [facility] Work Phone: Hematocrit Auto (Bld) [Volum e fraction]on 04-26-2021 Hematocrit (Bld) [Volume fraction] 40.3 % 40-54 [facility] Work Phone: Laboratory - Hematology and Cell countson 04-26-2021 Basophils/100 WBC (Unsp spec) 0.6 % 0-1 [facility] Work Phone: Erythrocyte distribution width (RBC) [Entitic vol] 45.8 fL 35.1-43.9 [facility] Work Phone: Erythrocyte distribution width (RBC) [Ratio] 13.2 % 11.6-14.6 [facility] Work Phone: Immature granulocytes/100 WBC (Bld) 0.600 % 0.0-0.9 [facility] Work Phone: [phone] Comment on above: IG% - Immature Granu locytes (promyelocytes, myelocytes and metamyelocytes) > 1% indicates that a LEFT SHIFT is Present. MCH (RBC) [Entitic mass] 31.3 pg 27.0-32.0 [facility] Work Phone: Neutrophils/100 WBC (Bld) 63.2 % 47-70 [facility] Work Phone: Nucleated RBC/100 WBC (Bld) [Ratio] 0 % 0-5 [facility] Work Phone: MCHC Auto (RBC) [Mass/Vol]on 04-26-2021 MCHC (RBC) [Mass/Vol] 33.5 g/dL 32-36 [facility] Work Phone: Platelets bldon 04-26-2021 Platelets (Bld) [#/Vol] 172 10*3/uL 150-450 [facility] Work Phone: Absolute lymphocyte counton 04-19-2021 Lymphocytes Auto (Unsp spec) [#/Vol] 1.31 10*3/uL 0.83-4.51 [facility] Work Phone: Basophil percentageon 2020 Eosinophils/100 WBC (Bld) 2.8 % 0-5 [facility] Work Phone: Neutrophils (Bld) [#/Vol] 3.0 10*3/uL 2.0-7.7 [facility] Work Phone: WBC (Bld) [#/Vol] 5.0 10*3/uL 4.4-11.0 [facility] Work Phone: Blood erythrocytes count (nu mber/volume)on 04-19-2021 RBC (Bld) [#/Vol] 4.26 10*6/uL 4.6-6.2 [facility] Work Phone: Blood hemoglobin measurement (mass/volume)on 04-19-2021 Hemoglobin (Bld) [Mass/Vol] 13.2 g/dL 13.0-16.5 [facility] Work Phone: Blood lymphocytes/100 leukoc yteson 04-19-2021 Lymphocytes/100 WBC (Bld) 26.1 % 19-41 [facility] Work Phone: Blood monocytes/100 leukocyt eson 04-19-2021 Monocytes/100 WBC (Bld) 10.0 % 0-10 [facility] Work Phone: Blood platelet mean volumeon 04-19-2021 Platelet mean volume (Bld) [Entitic vol] 10.9 fL 6.2-12.0 [facility] Work Phone: Determination of erythrocyte mean corpuscular volume (MCV)on 04-19-2021 MCV (RBC) [Entitic vol] 93.7 fL 80-94 [facility] Work Phone: Hematocrit Auto (Bld) [Volum e fraction]on 12-20-2021 Hematocrit (Bld) [Volume fraction] 39.9 % 40-54 [facility] Work Phone: Laboratory - Hematology and Cell countson 04-19-2021 Basophils/100 WBC (Unsp spec) 1.0 % 0-1 [facility] Work Phone: [phone] Erythrocyte distribution width (RBC) [Entitic vol] 46.7 fL 35.1-43.9 [facility] Work Phone: Erythrocyte distribution width (RBC) [Ratio] 13.7 % 11.6-14.6 [facility] Work Phone: Immature granulocytes/100 WBC (Bld) 0.400 % 0.0-0.9 [facility] Work Phone: Comment on above: IG% - Immature Granu locytes (promyelocytes, myelocytes and metamyelocytes) > 1% indicates that a LEFT SHIFT is Present. MCH (RBC) [Entitic mass] 31.0 pg 27.0-32.0 [facility] Work Phone: Neutrophils/100 WBC (Bld) 59.7 % 47-70 [facility] Work Phone: Nucleated RBC/100 WBC (Bld) [Ratio] 0 % 0-5 [facility] Work Phone: MCHC Auto (RBC) [Mass/Vol]on 04-19-2021 MCHC (RBC) [Mass/Vol] 33.1 g/dL 32-36 [facility] Work Phone: [phone] Platelets bldon 04-19-2021 Platelets (Bld) [#/Vol] 165 10*3/uL 150-450 [facility] Work Phone: [phone] Absolute lymphocyte counton 04-12-2021 Lymphocytes Auto (Unsp spec) [#/Vol] 1.41 10*3/uL 0.83-4.51 [facility] Work Phone: [phone] Basophil percentageon 2020 Bilirubin [Mass/Vol] 0.40 mg/dL 0.20-1.00 [facility] Work Phone: Comment on above: For patients on eltr ombopag therapy, use of Dimension Nora TBIL is not recommended. Eosinophils/100 WBC (Bld) 0.9 % 0-5 [facility] Work Phone: Neutrophils (Bld) [#/Vol] 3.4 10*3/uL 2.0-7.7 [facility] Work Phone: Protein [Mass/Vol] 5.7 g/dL 6.4-8.2 [facility] Work Phone: WBC (Bld) [#/Vol] 5.5 10*3/uL 4.4-11.0 [facility] Work Phone: Blood erythrocytes count (nu mber/volume)on 04-12-2021 RBC (Bld) [#/Vol] 4.09 10*6/uL 4.6-6.2 [facility] Work Phone: Blood hemoglobin measurement (mass/volume)on 04-12-2021 Hemoglobin (Bld) [Mass/Vol] 12.4 g/dL 13.0-16.5 [facility] Work Phone: Blood lymphocytes/100 leukoc yteson 04-12-2021 Lymphocytes/100 WBC (Bld) 25.9 % 19-41 [facility] Work Phone: Blood monocytes/100 leukocyt eson 04-12-2021 Monocytes/100 WBC (Bld) 9.2 % 0-10 [facility] Work Phone: Blood platelet mean volumeon 04-12-2021 Platelet mean volume (Bld) [Entitic vol] 11.1 fL 6.2-12.0 [facility] Work Phone: Determination of erythrocyte mean corpuscular volume (MCV)on 04-12-2021 MCV (RBC) [Entitic vol] 93.4 fL 80-94 [facility] Work Phone: Direct bilirubinon Bilirubin.direct [Mass/Vol] 0.08 mg/dL 0.00-0.30 [facility] Work Phone: [phone] Hematocrit Auto (Bld) [Volum e fraction]on 04-12-2021 Hematocrit (Bld) [Volume fraction] 38.2 % 40-54 [facility] Work Phone: [phone] Laboratory - Chemistry and C hemistry - challengeon 04-12-2021 ALP [Catalytic activity/Vol] 101 U/L 45-117 [facility] Work Phone: [phone] ALT [Catalytic activity/Vol] 30 U/L 16-61 [facility] Work Phone: [phone] Globulin (S) [Mass/Vol] 2.9 g/dL 2.2-4.2 [facility] Work Phone: [phone] Laboratory - Hematology and Cell countson 04-12-2021 Basophils/100 WBC (Unsp spec) 0.6 % 0-1 [facility] Work Phone: [phone] Erythrocyte distribution width (RBC) [Entitic vol] 46.7 fL 35.1-43.9 [facility] Work Phone: [phone] Erythrocyte distribution width (RBC) [Ratio] 13.7 % 11.6-14.6 [facility] Work Phone: [phone] Immature granulocytes/100 WBC (Bld) 0.400 % 0.0-0.9 [facility] Work Phone: [phone] Comment on above: IG% - Immature Granu locytes (promyelocytes, myelocytes and metamyelocytes) > 1% indicates that a LEFT SHIFT is Present. MCH (RBC) [Entitic mass] 30.3 pg 27.0-32.0 [facility] Work Phone: [phone] Neutrophils/100 WBC (Bld) 63.0 % 47-70 [facility] Work Phone: [phone] Nucleated RBC/100 WBC (Bld) [Ratio] 0 % 0-5 [facility] Work Phone: MCHC Auto (RBC) [Mass/Vol]on 04-12-2021 MCHC (RBC) [Mass/Vol] 32.5 g/dL 32-36 [facility] Work Phone: Platelets bldon 04-12-2021 Platelets (Bld) [#/Vol] 173 10*3/uL 150-450 [facility] Work Phone: Serum or plasma albumin gordy urement (mass/volume)on 04-12-2021 Albumin [Mass/Vol] 2.8 g/dL 3.2-5.0 [facility] Work Phone: Thin prep Papanicolaou smear with manual screeningon 04-12-2021 Thin prep Papanicolaou smear with manual screening 15 U/L 15- [facility] Work Phone: Absolute lymphocyte counton 04-07-2021 Lymphocytes Auto (Unsp spec) [#/Vol] 1.55 10*3/uL 0.83-4.51 [facility] Work Phone: Basophil percentageon 2020 Eosinophils/100 WBC (Bld) 0.7 % 0-5 [facility] Work Phone: Neutrophils (Bld) [#/Vol] 5.3 10*3/uL 2.0-7.7 [facility] Work Phone: WBC (Bld) [#/Vol] 8.1 10*3/uL 4.4-11.0 [facility] Work Phone: Blood erythrocytes count (nu mber/volume)on 04-07-2021 RBC (Bld) [#/Vol] 4.18 10*6/uL 4.6-6.2 [facility] Work Phone: Blood hemoglobin measurement (mass/volume)on 04-07-2021 Hemoglobin (Bld) [Mass/Vol] 12.9 g/dL 13.0-16.5 [facility] Work Phone: [phone] Blood lymphocytes/100 leukoc yteson 04-07-2021 Lymphocytes/100 WBC (Bld) 19.2 % 19-41 [facility] Work Phone: Blood monocytes/100 leukocyt eson 04-07-2021 Monocytes/100 WBC (Bld) 13.0 % 0-10 [facility] Work Phone: Blood platelet mean volumeon 04-07-2021 Platelet mean volume (Bld) [Entitic vol] 10.9 fL 6.2-12.0 [facility] Work Phone: Determination of erythrocyte mean corpuscular volume (MCV)on 04-07-2021 MCV (RBC) [Entitic vol] 92.6 fL 80-94 [facility] Work Phone: Hematocrit Auto (Bld) [Volum e fraction]on 04-07-2021 Hematocrit (Bld) [Volume fraction] 38.7 % 40-54 [facility] Work Phone: Laboratory - Hematology and Cell countson 04-07-2021 Basophils/100 WBC (Unsp spec) 0.6 % 0-1 [facility] Work Phone: Erythrocyte distribution width (RBC) [Entitic vol] 45.8 fL 35.1-43.9 [facility] Work Phone: Erythrocyte distribution width (RBC) [Ratio] 13.5 % 11.6-14.6 [facility] Work Phone: Immature granulocytes/100 WBC (Bld) 0.500 % 0.0-0.9 [facility] Work Phone: [phone] Comment on above: IG% - Immature Granu locytes (promyelocytes, myelocytes and metamyelocytes) > 1% indicates that a LEFT SHIFT is Present. MCH (RBC) [Entitic mass] 30.9 pg 27.0-32.0 [facility] Work Phone: Neutrophils/100 WBC (Bld) 66.0 % 47-70 [facility] Work Phone: Nucleated RBC/100 WBC (Bld) [Ratio] 0 % 0-5 [facility] Work Phone: MCHC Auto (RBC) [Mass/Vol]on 04-07-2021 MCHC (RBC) [Mass/Vol] 33.3 g/dL 32-36 [facility] Work Phone: Platelets bldon 04-07-2021 Platelets (Bld) [#/Vol] 210 10*3/uL 150-450 [facility] Work Phone: CULTURE BLOODon 03-25-2021 Microscopic examination of blood, culture CULTURE BLOOD --> Status: F No growth at 5 days. Normal [facility] Comment on above: Performed By: #### C /BLD ####[facility] [place], [place] CULTURE BLOOD (Two)on 2020 Microscopic examination of blood, culture CULTURE BLOOD (Two) --> Status: F No growth at 5 days. Normal [facility] Comment on above: Performed By: #### C /BLT ####[facility] [place], [place] Basic Metabolic Panelon 2 Calcium [Mass/Vol] 8.8 mg/dL Normal 8.4-10.4 [facility] Comment on above: Performed By: #### H EMDF, BMP3 #### [facility] [address] [place] [address] Glucose [Mass/Vol] 103 mg/dL High 70-100 [facility] Comment on above: Performed By: #### H EMDF, BMP3 #### [facility] [address] [place] [address] Anion gap [Moles/Vol] 5 mmol/L Normal 3-13 [facility] Comment on above: Performed By: #### H EMDF, BMP3 #### [facility] [address] [place] [address] CO2 [Moles/Vol] 26 mmol/L Normal 22-30 [facility] Comment on above: Performed By: #### H EMDF, BMP3 #### [facility] [address] [place] [address] Creatinine [Mass/Vol] 0.49 mg/dL Low 0.52-1.25 [facility] Comment on above: Performed By: #### H KORIN BRAR3 #### [facility] [address] [place] [address] eGFR OTHER > 90.0 Normal >60 [facility] Comment on above: Result Comment: KDIG O [...] renal tubular creatinine secretion. Performed By: #### KORIN BLANCAS3 #### [facility] [address] [place] [address] GFR/1.73 sq M.predicted among blacks MDRD (S/P/Bld) [Vol rate/Area] mL/min/{1.73_m2} Normal >60 [facility] Comment on above: Performed By: #### KORIN BLANCAS3 #### [facility] [address] [place] [address] Urea nitrogen [Mass/Vol] 30 mg/dL High 7-17 [facility] Comment on above: Performed By: #### KORIN BLANCAS3 #### [facility] [address] [place] [address] Chloride [Moles/Vol] 112 mmol/L High 98-107 [facility] Comment on above: Performed By: #### KORIN BLANCAS3 #### [facility] [address] [place] [address] Potassium [Moles/Vol] 4.1 mmol/L Normal 3.5-5.1 [facility] Comment on above: Performed By: #### H KORIN BRAR3 #### [facility] [address] [place] [address] Sodium [Moles/Vol] 142 mmol/L Normal 135-145 [facility] Comment on above: Performed By: #### H MAYKEL, BMP3 #### [facility] [address] [place] [address] Anion gap [Moles/Vol] 5 mmol/L 3 - 13 mmol/L [facility] Work Phone: Calcium [Mass/Vol] 8.8 mg/dL 8.4 - 10. 4 mg/dL [facility] Work Phone: Chloride [Moles/Vol] 112 mmol/L High 98 - 10 7 mmol/L [facility] Work Phone: CO2 [Moles/Vol] 26 mmol/L 22 - 30 mmol/L [facility] Work Phone: Creatinine [Mass/Vol] 0.49 mg/dL Low 0.52 - 1.25 mg/dL [facility] Work Phone: EGFR IF NonAfrican Fijian >90.0 >60 mL/min [facility] Work Phone: Comment on above: KDIGO guidelines [...] MDRD (S/P/Bld) [Vol rate/Area] mL/min/{1.73_m2} >60 mL/min [facility] Work Phone: Glucose [Mass/Vol] 103 mg/dL High 70 - 100 mg/dL [facility] Work Phone: Interpretation and review of laboratory results Abnormal [facility] Work Phone: Potassium [Moles/Vol] 4.1 mmol/L 3.5 - 5.1 mmol/L [facility] Work Phone: Sodium [Moles/Vol] 142 mmol/L 135 - 145 mmol/L [facility] Work Phone: Urea nitrogen (BldV) [Mass/Vol] 30 mg/dL High 7 - 17 mg/dL [facility] Work Phone: Test Performed by [facility], [address] [place] [id number] [place] [address] LAB [facility] Work Phone: CBC Auto Differentialon 11-2 Hematocrit (Bld) [Volume fraction] 35.0 % Low 40.0 - 52.0 % [facility] Work Phone: Hemoglobin.gastrointest inal spec 1 Ql (Stl) 11.7 g/dL Low 13.0 - 18.0 g/dL [facility] Work Phone: Interpretation and review of laboratory results Abnormal [facility] Work Phone: MCH (RBC) [Entitic mass] 31.0 pg 26.0 - 34.0 pg [facility] Work Phone: MCHC (RBC) [Mass/Vol] 33.4 % 32.0 - 36.0 % [facility] Work Phone: MCV (RBC) [Entitic vol] 92.7 fL 80.0 - 98.0 fL [facility] Work Phone: Platelet distribution width (Bld) [Ratio] 13.4 % 11.5 - 14.5 % [facility] [employer] Work Phone: Platelet mean volume (Bld) [Entitic vol] 8.6 fL 7.4 - 10.4 fL [employer] Work Phone: Platelets (Bld) [#/Vol] 236 10*3/uL 140 - 440 10*3/uL [employer] Work Phone: RBC (Bld) [#/Vol] 3.77 10*6/uL Low 4.40 - 5.9 0 10*6/uL [employer] Work Phone: WBC (Bld) [#/Vol] 12.8 10*3/uL High 3.6 - 10.7 10*3/uL [employer] Work Phone: [facility], [address] [place], [place] [address] [facility] Work Phone: Glucose,Bedsideon 03-24-2021 Glucose [Mass/Vol] 93 mg/dL Normal 70-100 [facility] Comment on above: Result Comment: Test performed by glucose meter. Results may be 10%-15% lower than serum/plasma values. (CLIA ID [id number]) Performed By: #### H KORIN BRAR3 #### [employer] [address] [place] [address] Glucose [Mass/Vol] 166 mg/dL High 70-100 [facility] Comment on above: Result Comment: Test performed by glucose meter. Results may be 10%-15% lower than serum/plasma values. (CLIA ID [id number]) Performed By: #### B GLU ####[email or web address]com[address] [place] [address] Hemogram w/ Autodiffon 03-24 Erythrocyte distribution width (RBC) [Ratio] 13.4 % Normal 11.5-14.5 [facility] Comment on above: Performed By: #### H ALCIRAF, BMP3 #### [facility] [address] [place] [address] Hematocrit (Bld) [Volume fraction] 35.0 % Low 40.0-52.0 [facility] Comment on above: Performed By: #### H EMDF, BMP3 #### [facility] [address] [place] [address] Hemoglobin (Bld) [Mass/Vol] 11.7 g/dL Low 13.0-18.0 [facility] Comment on above: Performed By: #### H EMDF, BMP3 #### [facility] [address] [place] [address] MCH (RBC) [Entitic mass] 31.0 pg Normal 26.0-34.0 [facility] Comment on above: Performed By: #### H EMDF, BMP3 #### [facility] [address] [place] [address] MCHC 33.4 % Normal 32.0-36.0 [facility] Comment on above: Performed By: #### H EMDF, BMP3 #### [facility] [address] [place] [address] MCV (RBC) [Entitic vol] 92.7 fL Normal 80.0-98.0 [facility] Comment on above: Performed By: #### H EMDF, BMP3 #### [facility] [address] [place] [address] Platelet mean volume (Bld) [Entitic vol] 8.6 fL Normal 7.4-10.4 [facility] Comment on above: Performed By: #### H EMDF, BMP3 #### [facility] [address] [place] [address] Platelets (Bld) [#/Vol] 236 10*3/uL Normal 140-440 [facility] Comment on above: Performed By: #### H EMDF, BMP3 #### [facility] [address] [place] [address] RBC (Bld) [#/Vol] 3.77 10*6/uL Low 4.40-5.90 [facility] Comment on above: Performed By: #### H EMDF, BMP3 #### [facility] [address] [place] [address] WBC (Bld) [#/Vol] 12.8 10*3/uL High 3.6-10.7 [facility] Comment on above: Performed By: #### H EMDF, BMP3 #### [facility] [address] [place] [address] Manual Diffon 03-24-2021 Abs Lymph Cnt 1.7 10*3/uL Normal 1.1-4.5 [facility] Comment on above: Performed By: #### H EMDF, BMP3 #### [facility] [address] [place] [address] Abs Monocyte Cnt 0.8 10*3/uL Normal 0.2-1.1 [facility] Comment on above: Performed By: #### H EMDF, BMP3 #### [facility] [address] [place] [address] Abs Neutrophile Cnt 10.1 10*3/uL High 2.2-8.2 [facility] Comment on above: Performed By: #### H EMDF, BMP3 #### [facility] [address] [place] [address] Anisocytosis Slight Normal [facility] Comment on above: Performed By: #### H EMDF, BMP3 #### [facility] [address] [place] [address] Atypical Lymphocytes 2 % Abnormal <1 [facility] Comment on above: Performed By: #### H EMDF, BMP3 #### [facility] [address] [place] [address] Abdoul Cells Slight Normal [facility] Comment on above: Performed By: #### H EMDF, BMP3 #### [facility] [address] [place] [address] Lymphocytes 11 % Low 20-40 [facility] Comment on above: Performed By: #### H EMDF, BMP3 #### [facility] [address] [place] [address] Monocytes 6 % Normal 2-10 [facility] Comment on above: Performed By: #### H EMDF, BMP3 #### [facility] [address] [place] [address] Myelocytes 2 % Abnormal <1 [facility] Comment on above: Performed By: #### H EMDF, BMP3 #### [facility] [address] [place] [address] Ovalocytes Slight Normal [facility] Comment on above: Performed By: #### H EMDF, BMP3 #### [facility] [address] [place] [address] Poikilocytosis Slight Normal [facility] [place] [facility] Comment on above: Performed By: #### H EMDF, BMP3 #### [facility] [address] [place] [address] Polychromasia Slight Normal [facility] Comment on above: Performed By: #### H EMDF, BMP3 #### [facility] [address] [place] [address] RBC Morphology ABNORMAL Normal [facility] Comment on above: Performed By: #### H EMDF, BMP3 #### [facility] [address] [place] [address] Seg Neutrophils 79 % Normal 40-80 [facility] Comment on above: Performed By: #### H EMDF, BMP3 #### [facility] [address] [place] [address] Tear Drop Forms Slight Normal [facility] Comment on above: Performed By: #### H EMDF, BMP3 #### [facility] [address] [place] [address] Abs Baso Cnt 0.0 10*3/uL Normal 0.0-0.2 [facility] Comment on above: Performed By: #### H EMDF, BMP3 #### [facility] [address] [place] [address] Abs Eosin Cnt 0.0 10*3/uL Normal 0.0-0.5 [facility] Comment on above: Performed By: #### H EMDF, BMP3 #### [facility] [address] [place] [address] Bands 0 % Normal 0-3 [facility] Comment on above: Performed By: #### H EMDF, BMP3 #### [facility] [address] [place] [address] Basophils 0 % Normal 0-2 [facility] Comment on above: Performed By: #### H EMDF, BMP3 #### [facility] [address] [place] [address] Cells counted [address] [facility] Comment on above: Performed By: #### H EMDF, BMP3 #### [facility] [address] [place] [address] Eosinophils 0 % Low 1-6 [facility] Comment on above: Performed By: #### H EMDF, BMP3 #### [facility] [address] [place] [address] Manual Differentialon 2020 Absolute Baso # 0.0 10*3/uL 0.0 - 0.2 10*3/uL [facility] Work Phone: Absolute Eos # 0.0 10*3/uL 0.0 - 0.5 10*3/uL [facility] Work Phone: [phone] Absolute Lymph # 1.7 10*3/uL 1.1 - 4.5 10*3/uL [facility] Work Phone: [phone] Absolute [place] # 0.8 10*3/uL 0.2 - 1.1 10*3/uL [facility] Work Phone: Absolute Neut # 10.1 10*3/uL High 2.2 - 8.2 10*3/uL [facility] Work Phone: [phone] Anisocytosis Slight [facility] Work Phone: [phone] Atypical Lymphocytes 2 % Abnormal <1 [facility] Work Phone: [phone] Bands 0 % 0 - 3 % [facility] Work Phone: [phone] Basophils/100 WBC (Bld) 0 % 0 - 2 % [facility] Work Phone: Little Neck Cells Slight [facility] Work Phone: Eosinophils/100 WBC (Bld) 0 % Low 1 - 6 % [facility] Work Phone: Interpretation and review of laboratory results Abnormal [facility] Work Phone: [phone] Lymphocytes/100 WBC (Bld) 11 % Low 20 - 40 % [facility] Work Phone: Monocytes/100 WBC (Bld) 6 % 2 - 10 % [facility] Work Phone: Myelocytes 2 % Abnormal <1 [facility] Work Phone: Ovalocytes Slight [facility] Work Phone: Poikilocytes Slight [facility] Work Phone: Polychromasia Slight [facility] Work Phone: RBC (Bld) [#/Vol] ABNORMAL [facility] Work Phone: Seg Neutrophils 79 % 40 - 80 % [facility] Work Phone: Tear Drop Cells Slight [facility] Work Phone: TOTAL CELLS COUNTED 100 [facility] Work Phone: Test Performed by [facility], [address] [place], [place] [address] [facility] Work Phone: POCT Glucoseon 03-24-2021 Glucose [Mass/Vol] 93 mg/dL 70 - 100 mg/dL [facility] Work Phone: Comment on above: Test performed by gl ucose meter. Results may be 10%-15% lower than serum/plasma values. (CLIA ID [id number]) Test Performed by [facility], [address] [place], [place] [address] [facility] Work Phone: Basic Metabolic Panelon 11-2 Calcium [Mass/Vol] 8.8 mg/dL Normal 8.4-10.4 [facility] Comment on above: Performed By: #### H EMDF BMP3 #### [facility] [address] [place] [address] Glucose [Mass/Vol] 143 mg/dL High 70-100 [facility] Comment on above: Performed By: #### H EMDF, BMP3 #### [facility] [address] [place] [address] Anion gap [Moles/Vol] 8 mmol/L Normal 3-13 [facility] Comment on above: Performed By: #### H MAYKEL BMP3 #### [facility] [address] [place] [address] CO2 [Moles/Vol] 24 mmol/L Normal 22-30 [facility] Comment on above: Performed By: #### H MAYKEL BMP3 #### [facility] [address] [place] [address] Creatinine [Mass/Vol] 0.47 mg/dL Low 0.52-1.25 [facility] Comment on above: Performed By: #### H EMDF BMP3 #### [facility] [address] [place] [address] eGFR OTHER > 90.0 Normal >60 [facility] Comment on above: Result Comment: KDIG O [...] Performed By: #### H MAYKEL BMP3 #### [facility] [address] [place] [address] GFR/1.73 sq M.predicted among blacks MDRD (S/P/Bld) [Vol rate/Area] mL/min/{1.73_m2} Normal >60 [facility] Comment on above: Performed By: #### H MAYKEL BMP3 #### [facility] [address] [place] [address] Urea nitrogen [Mass/Vol] 32 mg/dL High 7-17 [facility] Comment on above: Performed By: #### H EMDF, BMP3 #### [facility] [address] [place] [address] Chloride [Moles/Vol] 110 mmol/L High 98-107 [facility] Comment on above: Performed By: #### H EMDF, BMP3 #### [facility] [address] [place] [address] Potassium [Moles/Vol] 3.9 mmol/L Normal 3.5-5.1 [facility] Comment on above: Performed By: #### H EMDF, BMP3 #### [facility] [address] [place] [address] Sodium [Moles/Vol] 142 mmol/L Normal 135-145 [facility] Comment on above: Performed By: #### H EMDF, BMP3 #### [facility] [address] [place] [address] Anion gap [Moles/Vol] 8 mmol/L 3 - 13 mmol/L [facility] Work Phone: Calcium [Mass/Vol] 8.8 mg/dL 8.4 - 10. 4 mg/dL [facility] Work Phone: Chloride [Moles/Vol] 110 mmol/L High 98 - 10 7 mmol/L [facility] Work Phone: CO2 [Moles/Vol] 24 mmol/L 22 - 30 mmol/L [facility] Work Phone: Creatinine [Mass/Vol] 0.47 mg/dL Low 0.52 - 1.25 mg/dL [facility] Work Phone: EGFR IF NonAfrican Fijian >90.0 >60 mL/min [facility] Work Phone: Comment on above: KDIGO [...] MDRD (S/P/Bld) [Vol rate/Area] mL/min/{1.73_m2} >60 mL/min [employer] Work Phone: Glucose [Mass/Vol] 143 mg/dL High 70 - 100 mg/dL [employer] Work Phone: Interpretation and review of laboratory results Abnormal [facility] Work Phone: Potassium [Moles/Vol] 3.9 mmol/L 3.5 - 5.1 mmol/L [facility] Work Phone: Sodium [Moles/Vol] 142 mmol/L 135 - 145 mmol/L [facility] Work Phone: Urea nitrogen (BldV) [Mass/Vol] 32 mg/dL High 7 - 17 mg/dL [facility] Work Phone: [facility], [address] [place] [id number] [place] [address] [facility] Work Phone: CBC Auto Differentialon 11-2 Absolute Baso # 0.0 10*3/uL 0.0 - 0.2 10*3/uL [facility] Work Phone: Absolute Neut # 13.5 10*3/uL High 1.8 - 7.0 10*3/uL [employer] Work Phone: Basophils/100 WBC (Bld) 0.3 % 0.0 - 2.0 % [facility] Work Phone: Eosinophils (Bld) [#/Vol] 0.0 10*3/uL 0.0 - 0.5 10*3/uL [employer] Work Phone: Eosinophils/100 WBC (Bld) 0.0 % Low 1.0 - 6.0 % [employer] Work Phone: Granulocytes/100 WBC (Bld) 89.5 % High 40.0 - 80.0 % [employer] Work Phone: Hematocrit (Bld) [Volume fraction] 36.5 % Low 40.0 - 52.0 % [employer] Work Phone: Hemoglobin.gastrointest inal spec 1 Ql (Stl) 12.4 g/dL Low 13.0 - 18.0 g/dL [employer] Work Phone: Interpretation and review of laboratory results Abnormal [employer] Work Phone: Lymphocytes (Bld) [#/Vol] 0.7 10*3/uL Low 1.0 - 4.3 10*3/uL [employer] Work Phone: Lymphocytes/100 WBC (Bld) 4.8 % Low 20.0 - 40.0 % [employer] Work Phone: MCH (RBC) [Entitic mass] 31.3 pg 26.0 - 34.0 pg [employer] Work Phone: MCHC (RBC) [Mass/Vol] 34.1 % 32.0 - 36.0 % [employer] Work Phone: MCV (RBC) [Entitic vol] 92.0 fL 80.0 - 98.0 fL [employer] Work Phone: Monocytes (Bld) [#/Vol] 0.8 10*3/uL 0.0 - 0.8 10*3/uL [employer] Work Phone: Monocytes/100 WBC (Bld) 5.4 % 2.0 - 10.0 % [employer] Work Phone: Platelet distribution width (Bld) [Ratio] 13.2 % 11.5 - 14.5 % [employer] Work Phone: Platelet mean volume (Bld) [Entitic vol] 9.0 fL 7.4 - 10.4 fL [employer] Work Phone: Platelets (Bld) [#/Vol] 211 10*3/uL 140 - 440 10*3/uL [employer] Work Phone: RBC (Bld) [#/Vol] 3.96 10*6/uL Low 4.40 - 5.9 0 10*6/uL [employer] Work Phone: WBC (Bld) [#/Vol] 15.1 10*3/uL High 3.6 - 10.7 10*3/uL [employer] Work Phone: Test Performed by [facility], [address] [place], [place] [address] [facility] Work Phone: Glucose,Bedsideon 03-23-2021 Glucose [Mass/Vol] 122 mg/dL High 70-100 [facility] Comment on above: Result Comment: Test performed by glucose meter. Results may be 10%-15% lower than serum/plasma values. (CLIA ID [id number]) Performed By: #### H EMDF, BMP3 #### [facility] [address] [place] [address] Glucose [Mass/Vol] 129 mg/dL High 70-100 [facility] Comment on above: Test performed by gl ucose meter. Results may be 10%-15% lower than serum/plasma values. (CLIA ID [id number]) Result Comment: Test performed by glucose meter. Results may be 10%-15% lower than serum/plasma values. (CLIA ID [id number]) Performed By: #### B GLU ####[facility] [employer] [place] [address] Glucose [Mass/Vol] 136 mg/dL High 70-100 [facility] Comment on above: Result Comment: Test performed by glucose meter. Results may be 10%-15% lower than serum/plasma values. (CLIA ID [id number]) Performed By: #### B GLU #### [facility] [address] [place] [address] Hemogram w/ Autodiffon 03-23 Abs Baso Cnt 0.0 10*3/uL Normal 0.0-0.2 [facility] Comment on above: Performed By: #### H EMDF, BMP3 #### [facility] [address] [place] [address] Abs Neutrophile Cnt 13.5 10*3/uL High 1.8-7.0 [facility] Comment on above: Performed By: #### H EMDF, BMP3 #### [facility] [address] [place] [address] Basophils/100 WBC (Bld) 0.3 % Normal 0.0-2.0 [facility] Comment on above: Performed By: #### H EMDF, BMP3 #### [facility] [address] [place] [address] Eosinophils (Bld) [#/Vol] 0.0 10*3/uL Normal 0.0-0.5 [facility] Comment on above: Performed By: #### H EMDF, BMP3 #### [facility] [address] [place] [address] Eosinophils/100 WBC (Bld) 0.0 % Low 1.0-6.0 [facility] Comment on above: Performed By: #### H EMDF, BMP3 #### [facility] [address] [place] [address] Erythrocyte distribution width (RBC) [Ratio] 13.2 % Normal 11.5-14.5 [facility] Comment on above: Performed By: #### H EMDF, BMP3 #### [facility] [address] [place] [address] Granulocytes/100 WBC (Bld) 89.5 % High 40.0-80.0 [facility] Comment on above: Performed By: #### H EMDF, BMP3 #### [facility] [address] [place] [address] Hematocrit (Bld) [Volume fraction] 36.5 % Low 40.0-52.0 [facility] Comment on above: Performed By: #### H EMDF, BMP3 #### [facility] [address] [place] [address] Hemoglobin (Bld) [Mass/Vol] 12.4 g/dL Low 13.0-18.0 [facility] Comment on above: Performed By: #### H EMDF, BMP3 #### [facility] [address] [place] [address] Lymphocytes (Bld) [#/Vol] 0.7 10*3/uL Low 1.0-4.3 [facility] Comment on above: Performed By: #### H EMDF, BMP3 #### [facility] [address] [place] [address] Lymphocytes/100 WBC (Bld) 4.8 % Low 20.0-40.0 [facility] Comment on above: Performed By: #### H EMDF, BMP3 #### [facility] [address] [place] [address] MCH (RBC) [Entitic mass] 31.3 pg Normal 26.0-34.0 [facility] Comment on above: Performed By: #### H EMDF, BMP3 #### [facility] [address] [place] [address] MCHC 34.1 % Normal 32.0-36.0 [facility] Comment on above: Performed By: #### H EMDF, BMP3 #### [facility] [address] [place] [address] MCV (RBC) [Entitic vol] 92.0 fL Normal 80.0-98.0 [facility] Comment on above: Performed By: #### H EMDF, BMP3 #### [facility] [address] [place] [address] Monocytes (Bld) [#/Vol] 0.8 10*3/uL Normal 0.0-0.8 [facility] Comment on above: Performed By: #### H EMDF, BMP3 #### [facility] [address] [place] [address] Monocytes/100 WBC (Bld) 5.4 % Normal 2.0-10.0 [facility] Comment on above: Performed By: #### H EMDF, BMP3 #### [facility] [address] [place] [address] Platelet mean volume (Bld) [Entitic vol] 9.0 fL Normal 7.4-10.4 [facility] Comment on above: Performed By: #### H EMDF, BMP3 #### [facility] [address] [place] [address] Platelets (Bld) [#/Vol] 211 10*3/uL Normal 140-440 [facility] Comment on above: Performed By: #### H EMDF, BMP3 #### [facility] [address] [place] [address] RBC (Bld) [#/Vol] 3.96 10*6/uL Low 4.40-5.90 [facility] Comment on above: Performed By: #### H EMDF, BMP3 #### [facility] [address] [place] [address] WBC (Bld) [#/Vol] 15.1 10*3/uL High 3.6-10.7 [facility] Comment on above: Performed By: #### H EMDF, BMP3 #### [facility] [address] [place] [address] No Panel Informationon 03-23 Interpretation and review of laboratory results Abnormal [facility] Work Phone: Test Performed by [facility], [facility] [address] [facility] Work Phone: POCT Glucoseon 03-23-2021 Glucose [Mass/Vol] 166 mg/dL High 70 - 100 mg/dL [facility] Comment on above: Test performed by gl ucose meter. Results may be 10%-15% lower than serum/plasma values. (CLIA ID [id number]) Interpretation and review of laboratory results Abnormal [facility] Test Performed by [facility], [facility] [address] LAB [facility] Glucose [Mass/Vol] 122 mg/dL High 70 - 100 mg/dL [facility] Work Phone: Comment on above: Test performed by gl ucose meter. Results may be 10%-15% lower than serum/plasma values. (CLIA ID [id number]) Glucose [Mass/Vol] 136 mg/dL High 70 - 100 mg/dL [facility] Comment on above: Test performed by gl ucose meter. Results may be 10%-15% lower than serum/plasma values. (CLIA ID [id number]) Interpretation and review of laboratory results Abnormal [facility] Test Performed by [facility], [address] [place], [place], [place] [address] [facility] CBC Auto Differentialon 03-02 Absolute Baso # [...] 13.3 10*3/uL High 3.6 - 10.7 10*3/uL [facility] Test Performed by [facility], [address] [place], [place] [address] [facility] Glucose,Bedsideon 03-22-2021 Glucose [Mass/Vol] 134 mg/dL High 70-100 [facility] Comment on above: Result Comment: Test performed by glucose meter. Results may be 10%-15% lower than serum/plasma values. (CLIA ID [id number]) Performed By: #### H EMDF, BMP3 #### [facility] [address] [place] [address] Glucose [Mass/Vol] 190 mg/dL High 70-100 [facility] Comment on above: Result Comment: Test performed by glucose meter. Results may be 10%-15% lower than serum/plasma values. (CLIA ID [id number]) Performed By: #### B GLU #### [facility] [address] [place] [address] Glucose [Mass/Vol] 200 mg/dL High 70-100 [facility] Comment on above: Result Comment: Test performed by glucose meter. Results may be 10%-15% lower than serum/plasma values. (CLIA ID [id number]) Performed By: #### B GLU #### [facility] [address] [place] [address] Glucose [Mass/Vol] 181 mg/dL High 70-100 [facility] Comment on above: Result Comment: Test performed by glucose meter. Results may be 10%-15% lower than serum/plasma values. (CLIA ID [id number]) Performed By: #### B GLU #### [facility] [address] [place] [address] Glucose [Mass/Vol] 186 mg/dL High 70-100 [facility] Comment on above: Result Comment: Test performed by glucose meter. Results may be 10%-15% lower than serum/plasma values. (CLIA ID [id number]) Performed By: #### B GLU #### [facility] [address] [place] [address] Hemoglobin A1Con 03-22-2021 Glucose [Mass/Vol] 108 mg/dL Normal [facility] Comment on above: Performed By: #### B GLU #### [facility] [address] [place] [address] HbA1c (Bld) [Mass fraction] 5.4 % Normal [facility] Comment on above: Result Comment: Norm al less than 5.7% Prediabetes 5.7% to 6.4% Diabetes 6.5% or higher --HgbA1C levels may not be accurate in patients who have renal disease, received recent blood transfusions, are anemic, or who have dyshemoglobinemia. Performed By: #### B GLU #### [facility] [address] [place] [address] HbA1c (Bld) [Mass fraction] 5.4 % [facility] Comment on above: Normal less than 5.7 % Prediabetes 5.7% to 6.4% Diabetes 6.5% or higher --HgbA1C levels may not be accurate in patients who have renal disease, received recent blood transfusions, are anemic, or who have dyshemoglobinemia. Magnesium [Mass/Vol] 108 mg/dL [facility] Test Performed by [facility], [address] [place], [place] [address] [facility] Hemogram w/ Autodiffon 03-22 Abs Baso Cnt 0.0 10*3/uL Normal 0.0-0.2 [facility] Comment on above: Performed By: #### B GLU #### [facility] [address] [place] [address] Abs Neutrophile Cnt 12.3 10*3/uL High 1.8-7.0 [facility] Comment on above: Performed By: #### B GLU #### [facility] [address] [place] [address] Basophils/100 WBC (Bld) 0.2 % Normal 0.0-2.0 [facility] Comment on above: Performed By: #### B GLU #### [facility] [address] [place] [address] Eosinophils (Bld) [#/Vol] 0.0 10*3/uL Normal 0.0-0.5 [facility] Comment on above: Performed By: #### B GLU #### [facility] [address] [place] [address] Eosinophils/100 WBC (Bld) 0.0 % Low 1.0-6.0 [facility] Comment on above: Performed By: #### B GLU #### [facility] [address] [place] [address] Erythrocyte distribution width (RBC) [Ratio] 12.8 % Normal 11.5-14.5 [facility] Comment on above: Performed By: #### B GLU #### [facility] [address] [place] [address] Granulocytes/100 WBC (Bld) 92.7 % High 40.0-80.0 [facility] Comment on above: Performed By: #### B GLU #### [facility] [address] [place] [address] Hematocrit (Bld) [Volume fraction] 35.9 % Low 40.0-52.0 [facility] Comment on above: Performed By: #### B GLU #### [facility] [address] [place] [address] Hemoglobin (Bld) [Mass/Vol] 12.4 g/dL Low 13.0-18.0 [facility] Comment on above: Performed By: #### B GLU #### [facility] [address] [place] [address] Lymphocytes (Bld) [#/Vol] 0.5 10*3/uL Low 1.0-4.3 [facility] Comment on above: Performed By: #### B GLU #### [facility] [address] [place] [address] Lymphocytes/100 WBC (Bld) 3.6 % Low 20.0-40.0 [facility] Comment on above: Performed By: #### B GLU #### [facility] [address] [place] [address] MCH (RBC) [Entitic mass] 31.6 pg Normal 26.0-34.0 [facility] Comment on above: Performed By: #### B GLU #### [facility] [address] [place] [address] MCHC 34.6 % Normal 32.0-36.0 [facility] Comment on above: Performed By: #### B GLU #### [facility] [address] [place] [address] MCV (RBC) [Entitic vol] 91.2 fL Normal 80.0-98.0 [facility] Comment on above: Performed By: #### B GLU #### [facility] [address] [place] [address] Monocytes (Bld) [#/Vol] 0.5 10*3/uL Normal 0.0-0.8 [facility] Comment on above: Performed By: #### B GLU #### [facility] [address] [place] [address] Monocytes/100 WBC (Bld) 3.5 % Normal 2.0-10.0 [facility] Comment on above: Performed By: #### B GLU #### [facility] [address] [place] [address] Platelet mean volume (Bld) [Entitic vol] 9.5 fL Normal 7.4-10.4 [facility] Comment on above: Performed By: #### B GLU #### [facility] [address] [place] [address] Platelets (Bld) [#/Vol] 158 10*3/uL Normal 140-440 [facility] Comment on above: Performed By: #### B GLU #### [facility] [address] [place] [address] RBC (Bld) [#/Vol] 3.93 10*6/uL Low 4.40-5.90 [facility] Comment on above: Performed By: #### B GLU #### [facility] [address] [place] [address] WBC (Bld) [#/Vol] 13.3 10*3/uL High 3.6-10.7 [facility] Comment on above: Performed By: #### B GLU #### [facility] [address] [place] [address] MRSA by PCRon 03-22-2021 Staph Aureus Sc No S. aureus detected. Negative nasal MRSA PCR has a high negative predictive value for MRSA pneumonia. Consider stopping vancomycin if no other clinical indication. Contact Antimicrobial Stewardship for further recommendations. The analytical performance characteristics of this assay have been determined by [employer] in accordance with CLIA regulations. The modifications have not been cleared or approved by the U. S. Food and Drug Administration; however, the FDA has determined that such clearance or approval is not necessary. [facility] Test Performed by [facility], [address] [place] [id number] [place] [address] LAB [facility] POCT GlucoseOrdered By: Pascual Morgan on 03-22-2021 Glucose [Mass/Vol] 134 mg/dL High 70 - 100 mg/dL [facility] Work Phone: Comment on above: Test performed by gl ucose meter. Results may be 10%-15% lower than serum/plasma values. (CLIA ID [id number]) Interpretation and review of laboratory results Abnormal [facility] Work Phone: [facility] Work Phone: POCT Glucoseon 03-22-2021 Test Performed by [facility], [address] [place], [place] [address] [facility] Glucose [Mass/Vol] 190 mg/dL High 70 - 100 mg/dL [facility] Comment on above: Test performed by gl ucose meter. Results may be 10%-15% lower than serum/plasma values. (CLIA ID [id number]) Interpretation and review of laboratory results Abnormal [facility] Test Performed by [facility], [address] LAB [facility] Glucose [Mass/Vol] 200 mg/dL High 70 - 100 mg/dL [facility] Comment on above: Test performed by gl ucose meter. Results may be 10%-15% lower than serum/plasma values. (CLIA ID [id number]) Interpretation and review of laboratory results Abnormal [facility] Test Performed by [facility], [address] [facility] Glucose [Mass/Vol] 181 mg/dL High 70 - 100 mg/dL [facility] Comment on above: Test performed by gl ucose meter. Results may be 10%-15% lower than serum/plasma values. (CLIA ID [id number]) Interpretation and review of laboratory results Abnormal [facility] Test Performed by [facility], [address] [facility] Glucose [Mass/Vol] 186 mg/dL High 70 - 100 mg/dL [facility] Comment on above: Test performed by gl ucose meter. Results may be 10%-15% lower than serum/plasma values. (CLIA ID [id number]) Interpretation and review of laboratory results Abnormal [facility] Test Performed by [facility], [address] LAB [facility] Procalcitoninon 03-22-2021 Procalcitonin 0.09 ng/mL Normal 0.00-0.09 [facility] Comment on above: Performed By: #### H [facility] #### [facility] [address] [place] [address] Interpretation See Below [facility] Comment on above: PCT <0.50 = Low risk of severe sepsis and/or septic shock. PCT >2.00 = High risk of severe sepsis and/or septic shock. Procalcitonin 0.09 ng/mL 0.00 - 0.09 ng/mL [facility] Test Performed by [facility], [address] [place] [address] [facility] Staph Aureus Complete Nasalo n 03-22-2021 Staph Aureus Complete Nasal Staph Screen --> Status: F No S. aureus detected. Negative nasal MRSA PCR has a high negative predictive value for MRSA pneumonia. Consider stopping vancomycin if no other clinical indication. Contact Antimicrobial Stewardship for further recommendations. The analytical performance characteristics of this assay have been determined by [employer] in accordance with CLIA regulations. The modifications [...] of this assay have been determined by [employer] in accordance with CLIA regulations. The modifications have not been cleared or approved by the U. S. Food and Drug Administration; however, the FDA has determined that such clearance or approval is not necessary. Normal [facility] Comment on above: Performed By: #### S APCR ####[facility] [address] [place] [address] Vancomycin Troughon 03-22-20 21 Vancomycin Trough 8.1 ug/mL Low 15.0-20.0 [facility] [place] [facility] Comment on above: Result Comment: . Performed By: #### B GLU #### [facility] [address] [place] [address] Vancomycin, Troughon 021 Interpretation and review of laboratory results Abnormal [facility] Vancomycin Tr 8.1 ug/mL Low 15.0 - 20.0 ug/mL [facility] Comment on above: . Test Performed by [facility], [address] [place], [place] [address] [facility] Basic Metabolic Panelon 03-02 Anion gap [Moles/Vol] 7 mmol/L Normal 3-13 [facility] Comment on above: Performed By: #### H MAYKEL BMP3 #### [facility] [address] [place] [address] Calcium [Mass/Vol] 8.1 mg/dL Low 8.4-10.4 [facility] Comment on above: Performed By: #### H MAYKEL, BMP3 #### [facility] [address] [place] [address] CO2 [Moles/Vol] 26 mmol/L Normal 22-30 [facility] Comment on above: Performed By: #### H MAYKEL BMP3 #### [facility] [address] [place] [address] Glucose [Mass/Vol] 156 mg/dL High 70-100 [facility] Comment on above: Performed By: #### H ALCIRAF BMP3 #### [facility] [address] [place] [address] Urea nitrogen [Mass/Vol] 19 mg/dL High 7-17 [facility] Comment on above: Performed By: #### H ALCIRAF BMP3 #### [facility] [address] [place] [address] Creatinine [Mass/Vol] 0.53 mg/dL Normal 0.52-1.25 [facility] Comment on above: Performed By: #### H ALCIRAF BMP3 #### [facility] [address] [place] [address] eGFR OTHER > 90.0 Normal >60 [facility] Comment on above: Result Comment: KDIG O [...] Performed By: #### H MAYKEL BMP3 #### [facility] [address] [place] [address] GFR/1.73 sq M.predicted among blacks MDRD (S/P/Bld) [Vol rate/Area] mL/min/{1.73_m2} Normal >60 [facility] Comment on above: Performed By: #### H EMDF, BMP3 #### [facility] [address] [place] [address] Chloride [Moles/Vol] 103 mmol/L Normal 98-107 [facility] Comment on above: Performed By: #### H EMDF, BMP3 #### [facility] [address] [place] [address] Potassium [Moles/Vol] 3.4 mmol/L Low 3.5-5.1 [facility] Comment on above: Performed By: #### H EMDF, BMP3 #### [facility] [address] [place] [address] Sodium [Moles/Vol] 136 mmol/L Normal 135-145 [facility] Comment on above: Performed By: #### H EMDF, BMP3 #### [facility] [address] [place] [address] Basic Metabolic Panel w/ Ref marciano to MGon 03-21-2021 Anion gap [Moles/Vol] 7 mmol/L 3 - 13 mmol/L [facility] Work Phone: Calcium [Mass/Vol] 8.1 mg/dL Low 8.4 - 10. 4 mg/dL [facility] Work Phone: Chloride [Moles/Vol] 103 mmol/L 98 - 10 7 mmol/L [facility] Work Phone: CO2 [Moles/Vol] 26 mmol/L 22 - 30 mmol/L [facility] Work Phone: Creatinine [Mass/Vol] 0.53 mg/dL 0.52 - 1.25 mg/dL [facility] Work Phone: EGFR IF NonAfrican Fijian >90.0 >60 mL/min [facility] Work Phone: Comment on above: KDIGO [...] MDRD (S/P/Bld) [Vol rate/Area] mL/min/{1.73_m2} >60 mL/min [employer] Work Phone: Glucose [Mass/Vol] 156 mg/dL High 70 - 100 mg/dL [employer] Work Phone: Interpretation and review of laboratory results Abnormal [facility] Work Phone: Potassium [Moles/Vol] 3.4 mmol/L Low 3.5 - 5.1 mmol/L [employer] Work Phone: Sodium [Moles/Vol] 136 mmol/L 135 - 145 mmol/L [employer] Work Phone: Urea nitrogen (BldV) [Mass/Vol] 19 mg/dL High 7 - 17 mg/dL [facility] Work Phone: Test Performed by [facility], [address] [place] [id number] [place] [address] LAB [facility] Work Phone: CBCon 03-21-2021 Hematocrit (Bld) [Volume fraction] 35.4 % Low 40.0 - 52.0 % [facility] Work Phone: Hemoglobin.gastrointest inal spec 1 Ql (Stl) 11.9 g/dL Low 13.0 - 18.0 g/dL [employer] Work Phone: Interpretation and review of laboratory results Abnormal [employer] Work Phone: MCH (RBC) [Entitic mass] 30.5 pg 26.0 - 34.0 pg [employer] Work Phone: MCHC (RBC) [Mass/Vol] 33.7 % 32.0 - 36.0 % [facility] Work Phone: MCV (RBC) [Entitic vol] 90.6 fL 80.0 - 98.0 fL [employer] Work Phone: Platelet distribution width (Bld) [Ratio] 13.1 % 11.5 - 14.5 % [facility] Work Phone: Platelet mean volume (Bld) [Entitic vol] 9.1 fL 7.4 - 10.4 fL [employer] Work Phone: Platelets (Bld) [#/Vol] 136 10*3/uL Low 140 - 440 10*3/uL [employer] Work Phone: RBC (Bld) [#/Vol] 3.91 10*6/uL Low 4.40 - 5.9 0 10*6/uL [employer] Work Phone: WBC (Bld) [#/Vol] 7.1 10*3/uL 3.6 - 10.7 10*3/uL [employer] Work Phone: Test Performed by [facility], [address] [place], [place] [id number] [place] [address] LAB [facility] Work Phone: Glucose,Bedsideon 03-21-2021 Glucose [Mass/Vol] 131 mg/dL High 70-100 [facility] Comment on above: Result Comment: Test performed by glucose meter. Results may be 10%-15% lower than serum/plasma values. (CLIA ID [id number]) Performed By: #### B GLU #### [facility] [address] [place] [address] Glucose [Mass/Vol] 230 mg/dL High 70-100 [facility] Comment on above: Result Comment: Test performed by glucose meter. Results may be 10%-15% lower than serum/plasma values. (CLIA ID [id number]) Performed By: #### B GLU #### [facility] [address] [place] [address] Hemogramon 03-21-2021 Erythrocyte distribution width (RBC) [Ratio] 13.1 % Normal 11.5-14.5 [facility] Comment on above: Performed By: #### H MAYKEL BMP3 #### [facility] [address] [place] [address] Hematocrit (Bld) [Volume fraction] 35.4 % Low 40.0-52.0 [facility] Comment on above: Performed By: #### H MAYKEL BMP3 #### [facility] [address] [place] [address] Hemoglobin (Bld) [Mass/Vol] 11.9 g/dL Low 13.0-18.0 [facility] Comment on above: Performed By: #### H MAYKEL BMP3 #### [facility] [address] [place] [address] MCH (RBC) [Entitic mass] 30.5 pg Normal 26.0-34.0 [facility] Comment on above: Performed By: #### H MAYKEL BMP3 #### [facility] [address] [place] [address] MCHC 33.7 % Normal 32.0-36.0 [facility] Comment on above: Performed By: #### H MAYKEL BMP3 #### [facility] [address] [place] [address] MCV (RBC) [Entitic vol] 90.6 fL Normal 80.0-98.0 [facility] Comment on above: Performed By: #### H MAYKEL BMP3 #### [facility] [address] [place] [address] Platelet mean volume (Bld) [Entitic vol] 9.1 fL Normal 7.4-10.4 [facility] Comment on above: Performed By: #### H MAYKEL BMP3 #### [facility] [address] [place] [address] Platelets (Bld) [#/Vol] 136 10*3/uL Low 140-440 [facility] Comment on above: Performed By: #### H MAYKEL BMP3 #### [facility] [address] [place] [address] RBC (Bld) [#/Vol] 3.91 10*6/uL Low 4.40-5.90 [facility] Comment on above: Performed By: #### H EMDF, BMP3 #### [facility] [address] [place] [address] WBC (Bld) [#/Vol] 7.1 10*3/uL Normal 3.6-10.7 [facility] Comment on above: Performed By: #### H EMDF, BMP3 #### [facility] [address] [place] [address] Magnesiumon 03-21-2021 Magnesium [Mass/Vol] 2.2 mg/dL Normal 1.6-2.3 [facility] Comment on above: Performed By: #### H EMDF, BMP3 #### [facility] [address] [place] [address] Magnesium [Mass/Vol] 2.2 mg/dL 1.6 - 2 .3 mg/dL [facility] Work Phone: Test Performed by [facility], [address] LAB [facility] Work Phone: POCT Glucoseon 03-21-2021 Glucose [Mass/Vol] 131 mg/dL High 70 - 100 mg/dL [facility] Comment on above: Test performed by gl ucose meter. Results may be 10%-15% lower than serum/plasma values. (CLIA ID [id number]) Interpretation and review of laboratory results Abnormal [facility] Test Performed by [facility], [address] LAB [facility] Glucose [Mass/Vol] 230 mg/dL High 70 - 100 mg/dL [facility] Comment on above: Test performed by gl ucose meter. Results may be 10%-15% lower than serum/plasma values. (CLIA ID [id number]) Interpretation and review of laboratory results Abnormal [facility] Test Performed by [facility], [address] LAB [facility] Procalcitoninon 03-21-2021 Interpretation See Below Normal [facility] Comment on above: Result Comment: PCT <0.50 = Low risk of severe sepsis and/or septic shock. PCT >2.00 = High risk of severe sepsis and/or septic shock. Performed By: #### Kerri BRAR BMP3 #### [facility] [address] [place] [address] Basic Metabolic Panelon 03-02 Calcium [Mass/Vol] 8.4 mg/dL Normal 8.4-10.4 [facility] Comment on above: Performed By: #### H MAYKEL BMP3 #### [facility] [address] [place] [address] Anion gap [Moles/Vol] 6 mmol/L Normal 3-13 [facility] Comment on above: Performed By: #### H MAYKEL BMP3 #### [facility] [address] [place] [address] CO2 [Moles/Vol] 27 mmol/L Normal 22-30 [facility] Comment on above: Performed By: #### H MAYKEL BMP3 #### [facility] [address] [place] [address] Glucose [Mass/Vol] 106 mg/dL High 70-100 [facility] Comment on above: Performed By: #### H MAYKEL BMP3 #### [facility] [address] [place] [address] Urea nitrogen [Mass/Vol] 14 mg/dL Normal 7-17 [facility] Comment on above: Performed By: #### H MAYKEL BMP3 #### [facility] [address] [place] [address] Creatinine [Mass/Vol] 0.51 mg/dL Low 0.52-1.25 [facility] Comment on above: Performed By: #### H MAYKEL BMP3 #### [facility] [address] [place] [address] eGFR OTHER > 90.0 Normal >60 [facility] Comment on above: Result Comment: KDIG O [...] Performed By: #### H MAYKEL BMP3 #### [facility] [address] [place] [address] GFR/1.73 sq M.predicted among blacks MDRD (S/P/Bld) [Vol rate/Area] mL/min/{1.73_m2} Normal >60 [facility] Comment on above: Performed By: #### Kerri BRAR BMP3 #### [facility] [address] [place] [address] Chloride [Moles/Vol] 104 mmol/L Normal 98-107 [facility] Comment on above: Performed By: #### Kerri BRAR BMP3 #### [facility] [address] [place] [address] Potassium [Moles/Vol] 3.9 mmol/L Normal 3.5-5.1 [facility] Comment on above: Performed By: #### H MAYKEL BMP3 #### [facility] [address] [place] [address] Sodium [Moles/Vol] 137 mmol/L Normal 135-145 [facility] Comment on above: Performed By: #### Kerri BRAR BMP3 #### [facility] [address] [place] [address] Anion gap [Moles/Vol] 6 mmol/L 3 - 13 mmol/L [facility] Work Phone: Calcium [Mass/Vol] 8.4 mg/dL 8.4 - 10. 4 mg/dL [facility] Work Phone: Chloride [Moles/Vol] 104 mmol/L 98 - 10 7 mmol/L [facility] Work Phone: CO2 [Moles/Vol] 27 mmol/L 22 - 30 mmol/L [employer] Work Phone: Creatinine [Mass/Vol] 0.51 mg/dL Low 0.52 - 1.25 mg/dL [employer] Work Phone: EGFR IF NonAfrican Fijian >90.0 >60 mL/min [facility] Work Phone: Comment [...] 106 mg/dL High 70 - 100 mg/dL [employer] Work Phone: Interpretation and review of laboratory results Abnormal [employer] Work Phone: Potassium [Moles/Vol] 3.9 mmol/L 3.5 - 5.1 mmol/L [employer] Work Phone: Sodium [Moles/Vol] 137 mmol/L 135 - 145 mmol/L [facility] Work Phone: Urea nitrogen (BldV) [Mass/Vol] 14 mg/dL 7 - 17 mg/dL [facility] Work Phone: Test Performed by [facility], [address] [place], [place] [id number] [place] [address] LAB [facility] Work Phone: C-Reactive Proteinon 021 CRP [Mass/Vol] 228.1 mg/L High 0.0-9.9 [facility] Comment on above: Result Comment: . Performed By: #### H EMD, BMP3 #### [facility] [address] [place] [address] CRP [Mass/Vol] 228.1 mg/L High 0.0 - 9.9 mg/L [facility] Work Phone: Comment on above: . Interpretation and review of laboratory results Abnormal [facility] Work Phone: Test Performed by [facility], [address] [place], [place] [id number] [place] [address] LAB [facility] Work Phone: COVID and Resp PCR Panelon 1 05-20-2020 SARS-CoV-2 (COVID-19) RNA SHIRLEY+probe Ql (Unsp spec) COVID and Resp PCR Panel --> Status: F POSITIVE: Respiratory Syncytial Virus DETECTED. _ Expected Result: Not Detected [facility] [employer] Upper Respiratory Pathogens PCR Panel can detect the following targets: SARS-CoV-2, Adenovirus, Coronavirus 229E, Coronavirus HKU1, Coronavirus NL63, Coronavirus OC43, Human Metapneumovirus, Human Rhinovirus/Enteroviru s, Influenza A, Influenza B, Parainfluenza Virus 1, Parainfluenza Virus 2, Parainfluenza Virus 3, Parainfluenza Virus 4, Respiratory Syncytial Virus, Bordetella pertussis, Bordetella parapertussis, Chlamydia pneumoniae, Mycoplasma pneumoniae. Method: Real-time PCR. _ Expected Result: Not Detected [facility] [employer] Upper Respiratory Pathogens PCR Panel can detect the following targets: SARS-CoV-2, Adenovirus, Coronavirus 229E, Coronavirus HKU1, Coronavirus NL63, Coronavirus OC43, Human Metapneumovirus, Human Rhinovirus/Enteroviru s, Influenza A, Influenza B, Parainfluenza Virus 1, Parainfluenza Virus 2, Parainfluenza Virus 3, Parainfluenza Virus 4, Respiratory Syncytial Virus, Bordetella pertussis, Bordetella parapertussis, Chlamydia pneumoniae, Mycoplasma pneumoniae. Method: Real-time PCR. Abnormal [facility] Comment on above: Performed By: #### B FRP2 #### [email or web address] [address] [place] [id number] EKG 12 Lead - Chest Painon 1 05-20-[address] 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1955 Requested By: BRADY DESAI Order Number: [id number] Reading MD: Fei Menjivar Measurements Intervals [place] Rate: 102 P: 71 CO: 172 QRS: -30 QRSD: 156 T: 85 QT: 412 QTc: 537 Interpretive Statements SINUS TACHYCARDIA LEFT BUNDLE BRANCH BLOCK Electronically Signed On 03-20-2021 22:47:41 EST by Fei BARNETT Work Phone: EKG 12 Lead - Chest PainOrde red By: Fei Menjivar on 03-20-2021 [employer] Work Phone: Lactic Acidon 03-20-2021 Lactate [Moles/Vol] 0.7 mmol/L Normal 0.7-2.0 [facility] Comment on above: Performed By: #### H EMDF, BMP3 #### [employer] [facility] [address] [place] [address] Lactic Acid, Plasmaon 2020 Lactate [Moles/Vol] 0.7 mmol/L 0.7 - 2. 0 mmol/L [facility] Work Phone: Test Performed by [facility], [address] [place], [place] [address] [facility] Work Phone: PROCALCITONINon 03-20-2021 Interpretation See Below [facility] Work Phone: Comment on above: PCT <0.50 = Low risk of severe sepsis and/or septic shock. PCT >2.00 = High risk of severe sepsis and/or septic shock. Interpretation and review of laboratory results Abnormal [facility] Work Phone: Test Performed by [employer] [facility], [address] [place] [id number] [place] [address] LAB [facility] Work Phone: Procalcitoninon 03-20-2021 Procalcitonin 0.14 ng/mL High 0.00-0.09 [facility] Work Phone: Comment on above: Performed By: #### H EMDF, BMP3 #### [employer] [facility] [address] [place] [address] Interpretation See Below Normal [facility] Comment on above: Result Comment: PCT <0.50 = Low risk of severe sepsis and/or septic shock. PCT >2.00 = High risk of severe sepsis and/or septic shock. Performed By: #### H EMDF, BMP3 #### [employer] [facility] [address] [place] [address] Troponinon 03-20-2021 Interpretation and review of laboratory results Abnormal [facility] Work Phone: Troponin I.cardiac [Mass/Vol] 0.037 ng/mL High 0.000 - 0.034 ng/mL [facility] Work Phone: Comment on above: . Test Performed by [facility], [address], [place], [place] [address] [facility] Work Phone: Troponin Ion 03-20-2021 Troponin I.cardiac [Mass/Vol] 0.037 ng/mL High 0.000-0.034 [facility] Comment on above: Result Comment: . Performed By: #### H EMDF, BMP3 #### [facility] [address] [place] [address] Arterial Blood Gas Respirato yasmine 03-19-2021 Base Excess 1.2 mmol/L Normal -3.0-3.0 [facility] Comment on above: Performed By: #### B GLU #### [facility] [address] [place] [address] CO2 [Moles/Vol] 25.6 mmol/L Normal 23.0-27.0 [facility] Comment on above: Performed By: #### B GLU #### [facility] [address] [place] [address] FIO2 5 Normal [facility] Comment on above: Result Comment: Perf ormed by CLIA ID: [id number] [place], [place] Performed By: #### B GLU #### [facility] [address] [place] [address] HCO3 (Bld) [Moles/Vol] 24.6 mmol/L Normal 21.0-25.0 [facility] Comment on above: Performed By: #### B GLU #### [facility] [address] [place] [address] Oxygen (Bld) [Partial pressure] 56.7 mm[Hg] Low 80.0-100.0 [facility] Comment on above: Performed By: #### B GLU #### [facility] [address] [place] [address] Oxygen saturation in Blood 91.0 % Low 95.0-100.0 [facility] Comment on above: Performed By: #### B GLU #### [facility] [address] [place] [address] pCO2 33.9 mm[Hg] Low 35.0-45.0 [facility] Comment on above: Performed By: #### B GLU #### [facility] [address] [place] [address] pH 7.468 High 7.350-7.450 [facility] Comment on above: Performed By: #### B GLU #### [facility] [address] [place] [address] Basic Metabolic Panelon 11-1 Anion gap [Moles/Vol] 9 mmol/L Normal 3-13 [facility] Comment on above: Performed By: #### B MP3, TROPN ####[facility] [place] [address] Calcium [Mass/Vol] 8.5 mg/dL Normal 8.4-10.4 [facility] Comment on above: Performed By: #### B MP3, TROPN ####[facility] [place] [address] CO2 [Moles/Vol] 26 mmol/L Normal 22-30 [facility] Comment on above: Performed By: #### B MP3, TROPN ####[facility] [place] [address] Creatinine [Mass/Vol] 0.48 mg/dL Low 0.52-1.25 [facility] Comment on above: Performed By: #### B MP3, TROPN ####[facility] [place] [address] eGFR OTHER > 90.0 Normal >60 [facility] Comment on above: Result Comment: KDIG O [...] secretion. Performed By: #### B MP3, TROPN ####[facility] [place] [address] GFR/1.73 sq M.predicted among blacks MDRD (S/P/Bld) [Vol rate/Area] mL/min/{1.73_m2} Normal >60 [facility] Comment on above: Performed By: #### B MP3, TROPN ####[facility] [place] [address] Glucose [Mass/Vol] 132 mg/dL High 70-100 [facility] Comment on above: Performed By: #### B MP3, TROPN ####[place] [address] [place] [address] Urea nitrogen [Mass/Vol] 16 mg/dL Normal 7-17 [facility] Comment on above: Performed By: #### B MP3, TROPN ####[place] [address] [place] [address] Chloride [Moles/Vol] 102 mmol/L Normal 98-107 [facility] Comment on above: Performed By: #### B MP3, TROPN ####[place] [address] [place] [address] Potassium [Moles/Vol] 4.1 mmol/L Normal 3.5-5.1 [facility] Comment on above: Performed By: #### B MP3, TROPN ####[facility] [place] [address] Sodium [Moles/Vol] 137 mmol/L Normal 135-145 [facility] Comment on above: Performed By: #### B MP3, TROPN ####[facility] [place] [address] Anion gap [Moles/Vol] 9 mmol/L 3 - 13 mmol/L [facility] Calcium [Mass/Vol] 8.5 mg/dL 8.4 - 10. 4 mg/dL [facility] Chloride [Moles/Vol] 102 mmol/L 98 - 10 7 mmol/L [facility] CO2 [Moles/Vol] 26 mmol/L 22 - 30 mmol/L [facility] Creatinine [Mass/Vol] 0.48 mg/dL Low 0.52 - 1.25 mg/dL [facility] EGFR IF NonAfrican Fijian >90.0 >60 mL/min [facility] Comment on above: [...] [Mass/Vol] 16 mg/dL 7 - 17 mg/dL [facility] Test Performed by [facility], [address] [place], [place] [id number] [place] [address] LAB [facility] CBC Auto Differentialon 03-01 Absolute Baso # 0.1 10*3/uL 0.0 - 0.2 10*3/uL [facility] Absolute Neut # 7.2 10*3/uL High 1.8 - 7.0 10*3/uL [facility] Hemoglobin.gastrointest inal spec 1 Ql (Stl) 13.1 g/dL 13.0 - 18.0 g/dL [facility] MCHC (RBC) [Mass/Vol] 33.9 % 32.0 - 36.0 % [facility] Platelet distribution width (Bld) [Ratio] 13.0 % 11.5 - 14.5 % [facility] COVID-19, Flu A/B, and RSV C omboon 03-19-2021 Influenza A by PCR Not detected [facility] A Influenza B by PCR Not detected [facility] Interpretation and review of laboratory results Abnormal [facility] RSV PCR DETECTED Expected Result: Not Detected _ Method: Real-time, RT-PCR This assay was developed by [employer] and distributed under an Emergency Use Authorization (EUA) granted by the FDA for the qualitative detection of nucleic acids from SARS-CoV-2, Influenza A, Influenza B, and Respiratory Syncytial Virus. Provider and patient fact sheets can be found at https://www.fda.gov/ edia/461125/download and https://www.fda.gov/m edia/667356/download. Abnormal [facility] SARS-CoV-2 (COVID-19) RNA SHIRLEY+probe Ql (Unsp spec) Not detected [facility] Test Performed by [facility], [address] [place] [address] LAB [facility] CR Chest Portableon 03-19-20 21 CR Chest Portable Patient Name: KATHYA HOOPER Diagnostic Radiology ACCESSION EXAM DATE/TIME PROCEDURE ORDERING PROVIDER [id number] 03/19/2021 17:10 EST CR Chest Portable [id number] -BRADY DESAI CPT code 87948 Reason For Exam (CR Chest Portable) hypoxia [...] J Transcribed Date and Time: 03/19/2021 5:22 [facility] ED Provider Noteon ED Provider Note Emergency Department Encounter [facility] ED Patient: Kathya Hooper : 1955 Date of Evaluation: 03/19/2021 ED Provider: Brady Desai, DO Chief Complaint Chief Complaint Patient presents with ? Shortness of Breath [place] I wore appropriate PPE for the entirety of this encounter. Does this patient come from an ECF, SNF, Rehab, Custodial or other Congregate setting: yes (If yes [...] otherwise acutely negative except as in the [place]. Past History Past Medical History: Diagnosis Date [...] and Family: Not on file ? Attends [employer] Services: Not on file ? Active Member [...] TABLET T (more content not included)... Normal [facility] Hemogram w/ Autodiffon 03-19 Abs Baso Cnt 0.1 10*3/uL Normal 0.0-0.2 [facility] Comment on above: Performed By: #### B GLU #### [facility] [address] [place] [address] Abs Neutrophile Cnt 7.2 10*3/uL High 1.8-7.0 [facility] Comment on above: Performed By: #### B GLU #### [facility] [address] [place] [address] Basophils/100 WBC (Bld) 0.6 % Normal 0.0-2.0 [facility] Comment on above: Performed By: #### B GLU #### [facility] [address] [place] [address] Eosinophils (Bld) [#/Vol] 0.0 10*3/uL Normal 0.0-0.5 [facility] Comment on above: Performed By: #### B GLU #### [facility] [address] [place] [address] Eosinophils/100 WBC (Bld) 0.2 % Low 1.0-6.0 [facility] Comment on above: Performed By: #### B GLU #### [facility] [address] [place] [address] Erythrocyte distribution width (RBC) [Ratio] 13.0 % Normal 11.5-14.5 [facility] Comment on above: Performed By: #### B GLU #### [facility] [address] [place] [address] Granulocytes/100 WBC (Bld) 79.0 % Normal 40.0-80.0 [facility] Comment on above: Performed By: #### B GLU #### [facility] [address] [place] [address] Hematocrit (Bld) [Volume fraction] 38.5 % Low 40.0-52.0 [facility] Comment on above: Performed By: #### B GLU #### [place] [address] [place] [address] Hemoglobin (Bld) [Mass/Vol] 13.1 g/dL Normal 13.0-18.0 [facility] Comment on above: Performed By: #### B GLU #### [place] [address] [place] [address] Lymphocytes (Bld) [#/Vol] 1.0 10*3/uL Normal 1.0-4.3 [facility] Comment on above: Performed By: #### B GLU #### [place] [address] [place] [address] Lymphocytes/100 WBC (Bld) 10.8 % Low 20.0-40.0 [facility] Comment on above: Performed By: #### B GLU #### [place] [address] [place] [address] MCH (RBC) [Entitic mass] 30.9 pg Normal 26.0-34.0 [facility] Comment on above: Performed By: #### B GLU #### [place] [address] [place] [address] MCHC 33.9 % Normal 32.0-36.0 [facility] Comment on above: Performed By: #### B GLU #### [facility] [address] [place] [address] MCV (RBC) [Entitic vol] 91.1 fL Normal 80.0-98.0 [facility] Comment on above: Performed By: #### B GLU #### [place] [address] [place] [address] Monocytes (Bld) [#/Vol] 0.9 10*3/uL High 0.0-0.8 [facility] Comment on above: Performed By: #### B GLU #### [place] [address] [place] [address] Monocytes/100 WBC (Bld) 9.4 % Normal 2.0-10.0 [facility] Comment on above: Performed By: #### B GLU #### [facility] [address] [place] [address] Platelet mean volume (Bld) [Entitic vol] 9.9 fL Normal 7.4-10.4 [facility] Comment on above: Performed By: #### B GLU #### [facility] [address] [place] [address] Platelets (Bld) [#/Vol] 163 10*3/uL Normal 140-440 [facility] Comment on above: Performed By: #### B GLU #### [facility] [address] [place] [address] RBC (Bld) [#/Vol] 4.23 10*6/uL Low 4.40-5.90 [facility] Comment on above: Performed By: #### B GLU #### [facility] [address] [place] [address] WBC (Bld) [#/Vol] 9.1 10*3/uL Normal 3.6-10.7 [facility] Comment on above: Performed By: #### B GLU #### [facility] [address] [place] [address] Lactic Acidon 03-19-2021 Lactate [Moles/Vol] 2.3 mmol/L Critically high 0.7-2.0 [facility] Comment on above: Performed By: #### L ACT3 ####[facility] [place] [address] Lactic Acid, Plasmaon 2020 Lactate [Moles/Vol] 2.3 mmol/L Critically high 0.7 - 2.0 mmol/L [facility] No Panel Informationon 03-19 Interpretation and review of laboratory results Abnormal [facility] Test Performed by [facility], [address] [place] [address] [facility] RBC MORPHOLOGYon 03-19-2021 Poikilocytes Slight [facility] RBC (Bld) [#/Vol] ABNORMAL [facility] Tear Drop Cells Slight [facility] RBC Morphologyon 03-19-2021 Ovalocytes Slight Normal [facility] Comment on above: Performed By: #### B GLU #### [facility] [address] [place] [address] Poikilocytosis Slight Normal [facility] Comment on above: Performed By: #### B GLU #### [facility] [address] [place] [address] Polychromasia Slight Normal [facility] Comment on above: Performed By: #### B GLU #### [facility] [address] [place] [address] RBC morphology finding Nom (Bld) ABNORMAL Normal [facility] Comment on above: Performed By: #### B GLU #### [facility] [address] [place] [address] Tear Drop Forms Slight Normal [facility] Comment on above: Performed By: #### B GLU #### [facility] [address] [place] [address] Respiratory Panel, Molecular , with COVID-19 (Restricted: peds pts or suitable admitted adults)on 03-19-2021 Interpretation and review of laboratory results Abnormal [facility] Respiratory Panel Molecular, with COVID POSITIVE: Respiratory Syncytial Virus DETECTED. _ Expected Result: Not Detected The [facility] Upper Respiratory Pathogens PCR Panel can detect the following targets: SARS-CoV-2, Adenovirus, Coronavirus 229E, Coronavirus HKU1, Coronavirus NL63, Coronavirus OC43, Human Metapneumovirus, Human Rhinovirus/Enteroviru s, Influenza A, Influenza B, Parainfluenza Virus 1, Parainfluenza Virus 2, Parainfluenza Virus 3, Parainfluenza Virus 4, Respiratory Syncytial Virus, Bordetella pertussis, Bordetella parapertussis, Chlamydia pneumoniae, Mycoplasma pneumoniae. Method: Real-time PCR. Abnormal [facility] Test Performed by [facility], [address] [place] [id number] [place] [address] LAB [facility] SARS-CoV-2, Flu A/B and RSVo n 03-19-2021 SARS-CoV-2 (COVID-19) RNA SHIRLEY+probe Ql (Unsp spec) SARS-CoV-2 --> Status: F Not Detected. Flu A PCR --> Status: F Not Detected. Flu B PCR --> Status: F Not Detected. RSV PCR --> Status: F DETECTED Expected Result: Not Detected _ Method: Real-time, RT-PCR This assay was developed by [employer] and distributed under an Emergency Use Authorization (EUA) granted by the FDA for the qualitative detection of nucleic acids from SARS-CoV-2, Influenza A, Influenza B, and Respiratory Syncytial Virus. Provider and patient fact sheets can be found at https://www.[facility].gov/ edia/309335/download and https://www.[facility].gov/ edia/332162/download. Expected Result: Not Detected _ Method: Real-time, RT-PCR This assay was developed by [employer] and distributed under an Emergency Use Authorization (EUA) granted by the FDA for the qualitative detection of nucleic acids from SARS-CoV-2, Influenza A, Influenza B, and Respiratory Syncytial Virus. Provider and patient fact sheets can be found at https://www.[facility].gov/ SoFits.Meia/359658/download and https://www.[facility].gov/ SoFits.Meia/722536/download. Abnormal [facility] Comment on above: Performed By: #### C VFLR #### [facility] [address] [place] [address] , [address] Troponinon 03-19-2021 Troponin I.cardiac [Mass/Vol] 0.017 ng/mL 0.000 - 0.034 ng/mL [facility] Comment on above: . Test Performed by [facility], [address] [place], [place] [address] [facility] Troponin Ion 03-19-2021 Troponin I.cardiac [Mass/Vol] 0.017 ng/mL Normal 0.000-0.034 [facility] Comment on above: Result Comment: . Performed By: #### B MP3, TROPN ####[facility] [place] [address] XR CHEST PORTABLEon 03-19-20 Patient Name: KATHYA HOOPER Diagnostic Radiology ACCESSION EXAM DATE/TIME PROCEDURE ORDERING PROVIDER [id number] 03/19/2021 17:10 EST CR Chest Portable [id number] -NESHEIM, BRADY CPT code 66445 Reason For Exam (CR Chest Portable) hypoxia [...] J Transcribed Date and Time: 03/19/2021 5:22 Keshawn Alvarado MD - 03/19/2021 [id number] Radiology ACCESSION EXAM DATE/TIME PROCEDURE ORDERING PROVIDER [id number] 03/19/2021 17:10 EST CR Chest Portable [id number] -NESHEIM, BRADY CPT code 49914 Reason For Exam (CR Chest Portable) hypoxia [...] J Transcribed Date and Time: 03/19/2021 5:22 [facility] Work Phone: Radiology Study observation (narrative) [facility] Work Phone: XR CHEST PORTABLEOrdered By: Keshawn Simpson on 03-19-2021 [facility] Work Phone: Basic Metabolic Panelon - Calcium [Mass/Vol] 8.4 mg/dL Normal 8.4-10.4 [facility] Comment on above: Performed By: #### H MAYKEL BMP3 #### [facility] [address] [place] [address] Glucose [Mass/Vol] 110 mg/dL High 70-100 [facility] Comment on above: Performed By: #### H MAYKEL BMP3 #### [facility] [address] [place] [address] Anion gap [Moles/Vol] 7 mmol/L Normal 3-13 [facility] Comment on above: Performed By: #### H MAYKLE BMP3 #### [facility] [address] [place] [address] CO2 [Moles/Vol] 26 mmol/L Normal 22-30 [facility] Comment on above: Performed By: #### H MAYKEL BMP3 #### [facility] [address] [place] [address] Creatinine [Mass/Vol] 0.54 mg/dL Normal 0.52-1.25 [facility] Comment on above: Performed By: #### H MAYKEL BMP3 #### [facility] [address] [place] [address] eGFR OTHER > 90.0 Normal >60 [facility] Comment on above: Result Comment: KDIG O [...] Performed By: #### H MAYKEL BMP3 #### [facility] [address] [place] [address] GFR/1.73 sq M.predicted among blacks MDRD (S/P/Bld) [Vol rate/Area] mL/min/{1.73_m2} Normal >60 [facility] Comment on above: Performed By: #### H EMDF, BMP3 #### [facility] [address] [place] [address] Urea nitrogen [Mass/Vol] 18 mg/dL High 7-17 [facility] Comment on above: Performed By: #### H EMDF, BMP3 #### [facility] [address] [place] [address] Potassium [Moles/Vol] 3.9 mmol/L Normal 3.5-5.1 [facility] Comment on above: Performed By: #### H EMDF, BMP3 #### [facility] [address] [place] [address] Chloride [Moles/Vol] 104 mmol/L Normal 98-107 [facility] Comment on above: Performed By: #### H EMDF, BMP3 #### [facility] [address] [place] [address] Sodium [Moles/Vol] 137 mmol/L Normal 135-145 [facility] Comment on above: Performed By: #### H EMDF, BMP3 #### [facility] [address] [place] [address] Anion gap [Moles/Vol] 7 mmol/L 3 - 13 mmol/L [facility] Calcium [Mass/Vol] 8.4 mg/dL 8.4 - 10. 4 mg/dL [facility] Chloride [Moles/Vol] 104 mmol/L 98 - 10 7 mmol/L [facility] CO2 [Moles/Vol] 26 mmol/L 22 - 30 mmol/L [facility] Creatinine [Mass/Vol] 0.54 mg/dL 0.52 - 1.25 mg/dL [facility] EGFR IF NonAfrican Fijian >90.0 >60 mL/min [facility] Comment on above: KDIGO guidelines pro [...] 110 mg/dL High 70 - 100 mg/dL [facility] Interpretation and review of laboratory results Abnormal [facility] Potassium [Moles/Vol] 3.9 mmol/L 3.5 - 5.1 mmol/L [facility] Sodium [Moles/Vol] 137 mmol/L 135 - 145 mmol/L [facility] Urea nitrogen (BldV) [Mass/Vol] 18 mg/dL High 7 - 17 mg/dL [facility] Brain Natriuretic Peptideon 03-18-2021 Interpretation and review of laboratory results Abnormal [facility] Natriuretic peptide B (Bld) [Mass/Vol] 710 pg/mL High 0 - 125 pg/mL [facility] Test Performed by [facility], [address] [place] [address] LAB [facility] CBC Auto Differentialon 03-01 Absolute Baso [...] (Stl) 13.6 g/dL 13.0 - 18.0 g/dL [facility] Interpretation and review of laboratory results Abnormal [...] [#/Vol] 8.8 10*3/uL 3.6 - 10.7 10*3/uL [facility] Test Performed by [facility], [address], [place], [place] [id number] [place] [address] LAB [facility] COVID-19, Flu A/B, and RSV C [facility] 03-18-2021 Influenza A by PCR Not detected [facility] Influenza B by PCR Not detected [facility] Interpretation and review of laboratory results Abnormal [facility] RSV PCR DETECTED Expected Result: Not Detected _ Method: Real-time, RT-PCR This assay was developed by [employer] and distributed under an Emergency Use Authorization (EUA) granted by the FDA for the qualitative detection of nucleic acids from SARS-CoV-2, Influenza A, Influenza B, and Respiratory Syncytial Virus. Provider and patient fact sheets can be found at https://www.[facility].gov/m edia/386792/download and https://www.fda.gov/m edia/981554/download. Abnormal [facility] SARS-CoV-2 (COVID-19) RNA SHIRLEY+probe Ql (Unsp spec) Not detected [facility] Test Performed by [facility], [address] [facility] [address] [facility] [place], [place] [id number] [place] [address] LAB [facility] CR Chest Portableon 03-18-20 21 CR Chest Portable Patient Name: KATHYA HOOPER Diagnostic Radiology ACCESSION EXAM DATE/TIME PROCEDURE ORDERING PROVIDER [id number] 03/18/2021 15:30 EST CR Chest Portable [id number] -BOO CASTRO CPT code 60176 Reason For Exam (CR Chest Portable) sob, [...] Transcribed Date and Time: 03/18/2021 3:35 Normal [facility] CTA Chest W WO (PE study)on 03-18-2021 Patient Name: KATHYA HOOPER Computed Tomography ACCESSION EXAM DATE/TIME PROCEDURE ORDERING PROVIDER [id number] 03/18/2021 16:27 EST CTA Chest w/ + w/o [id number] -Alyson CASTRO CPT code 34233 Q9967 Reason For Exam (CTA Chest w/ [...] MALAY Transcribed Date and Time: 03/18/2021 4:36 [facility] Malcolm Michaels MD - 03/18/2021 Patient Name: KATHYA HOOPER Computed Tomography ACCESSION EXAM DATE/TIME PROCEDURE ORDERING PROVIDER [id number] 03/18/2021 16:27 EST CTA Chest w/ + w/o [id number] [facility] CPT code 04017 Q9967 Reason For Exam (CTA Chest w/ [...] Tomography ACCESSION EXAM DATE/TIME PROCEDURE ORDERING PROVIDER [id number] 03/18/2021 16:27 EST CTA Chest w/ + w/o [id number] -Alyson CASTRO CPT code 94846 Q9967 Reason For Exam (CTA Chest w/ [...] Transcribed Date and Time: 03/18/2021 4:36 Normal [facility] CTA HEAD NECK W WO CONTRASTo n 03-18-2021 Patient Name: KATHYA HOOPER Computed Tomography ACCESSION EXAM DATE/TIME PROCEDURE ORDERING PROVIDER [id number] 03/18/2021 16:26 EST CTA Head/Neck w/ + w/o [id number] -alyson CASTRO CPT code 12543 71021 Q9967 Reason For Exam (CTA Head/Neck w/ [...] OSAMA Transcribed Date and Time: 03/18/2021 4:52 [facility] Greyson Rai MD - 03/18/2021 Patient Name: KATHYA HOOPER Computed Tomography ACCESSION EXAM DATE/TIME PROCEDURE ORDERING PROVIDER [id number] 03/18/2021 16:26 EST CTA Head/Neck w/ + w/o [id number] alyson ARCHIBALD CPT code 44874 43816 Q9967 Reason For Exam (CTA Head/Neck w/ [...] Tomography ACCESSION EXAM DATE/TIME PROCEDURE ORDERING PROVIDER [id number] 03/18/2021 16:26 EST CTA Head/Neck w/ + w/o [id number] -alyson CASTRO CPT code 58112 54222 Q9967 Reason For Exam (CTA Head/Neck w/ [...] Transcribed Date and Time: 03/18/2021 4:52 Normal [facility] ED Provider Noteon ED Provider Note PIEDAD [...] patient come from an ECF, SNF, Rehab, Custodial or other Congregate setting: no (If yes to above patient needs a Covid-19 test) HPI Kathya Hooper is a 66 y.o. 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 Normal [facility] Hemogram w/ Autodiffon 03-18 Abs Baso Cnt 0.0 10*3/uL Normal 0.0-0.2 [facility] Comment on above: Performed By: #### H MAYKEL BMP3 #### [facility] [address] [place] [address] Abs Neutrophile Cnt 7.3 10*3/uL High 1.8-7.0 [facility] Comment on above: Performed By: #### H MAYKEL BMP3 #### [facility] [address] [place] [address] Basophils/100 WBC (Bld) 0.5 % Normal 0.0-2.0 [facility] Comment on above: Performed By: #### H MAYKEL BMP3 #### [facility] [address] [place] [address] Eosinophils (Bld) [#/Vol] 0.0 10*3/uL Normal 0.0-0.5 [facility] Comment on above: Performed By: #### H MAYKEL BMP3 #### [facility] [address] [place] [address] Eosinophils/100 WBC (Bld) 0.1 % Low 1.0-6.0 [facility] Comment on above: Performed By: #### H MAYKEL BMP3 #### [facility] [address] [place] [address] Erythrocyte distribution width (RBC) [Ratio] 12.9 % Normal 11.5-14.5 [facility] Comment on above: Performed By: #### H EMDMaurice BMP3 #### [facility] [address] [place] [address] Granulocytes/100 WBC (Bld) 82.8 % High 40.0-80.0 [facility] Comment on above: Performed By: #### H MAYKEL BMP3 #### [facility] [address] [place] [address] Hematocrit (Bld) [Volume fraction] 38.3 % Low 40.0-52.0 [facility] Comment on above: Performed By: #### H MAYKEL BMP3 #### [facility] [address] [place] [address] Hemoglobin (Bld) [Mass/Vol] 13.6 g/dL Normal 13.0-18.0 [facility] Comment on above: Performed By: #### H MAYKEL BMP3 #### [facility] [address] [place] [address] Lymphocytes (Bld) [#/Vol] 0.7 10*3/uL Low 1.0-4.3 [facility] Comment on above: Performed By: #### H EMDF BMP3 #### [facility] [address] [place] [address] Lymphocytes/100 WBC (Bld) 7.6 % Low 20.0-40.0 [facility] Comment on above: Performed By: #### H EMDMaurice BMP3 #### [facility] [address] [place] [address] MCH (RBC) [Entitic mass] 32.0 pg Normal 26.0-34.0 [facility] Comment on above: Performed By: #### H MAYKEL BMP3 #### [facility] [address] [place] [address] MCHC 35.4 % Normal 32.0-36.0 [facility] Comment on above: Performed By: #### H EMDF, BMP3 #### [facility] [address] [place] [address] MCV (RBC) [Entitic vol] 90.2 fL Normal 80.0-98.0 [facility] Comment on above: Performed By: #### H EMDF, BMP3 #### [facility] [address] [place] [address] Monocytes (Bld) [#/Vol] 0.8 10*3/uL Normal 0.0-0.8 [facility] Comment on above: Performed By: #### H EMDMaurice BMP3 #### [facility] [address] [place] [address] Monocytes/100 WBC (Bld) 9.0 % Normal 2.0-10.0 [facility] Comment on above: Performed By: #### H EMDMaurice BMP3 #### [facility] [address] [place] [address] Platelet mean volume (Bld) [Entitic vol] 9.8 fL Normal 7.4-10.4 [facility] Comment on above: Performed By: #### H EMDMaurice BMP3 #### [facility] [address] [place] [address] Platelets (Bld) [#/Vol] 129 10*3/uL Low 140-440 [facility] Comment on above: Performed By: #### H EMDF BMP3 #### [facility] [address] [place] [address] RBC (Bld) [#/Vol] 4.24 10*6/uL Low 4.40-5.90 [facility] Comment on above: Performed By: #### H EMDF, BMP3 #### [facility] [address] [place] [address] WBC (Bld) [#/Vol] 8.8 10*3/uL Normal 3.6-10.7 [facility] Comment on above: Performed By: #### H EMDF BMP3 #### [facility] [address] [place] [address] MAGNESIUMon 03-18-2021 Magnesium [Mass/Vol] 2.0 mg/dL 1.6 - 2 .3 mg/dL [facility] Magnesiumon 03-18-2021 Magnesium [Mass/Vol] 2.0 mg/dL Normal 1.6-2.3 [facility] Comment on above: Performed By: #### H KORIN BRAR3 #### [facility] [address] [place] [address] NT pro BNPon 03-18-2021 Natriuretic peptide B (Bld) [Mass/Vol] 710 pg/mL High 0-125 [facility] Comment on above: Performed By: #### H KORIN BRAR3 #### [facility] [address] [place] [address] No Panel Informationon 03-18 Test Performed by [facility], [facility] [address] LAB [facility] PROTIME/INR & PTTon 03-18-20 aPTT Coag (Bld) [Time] 30.7 s High 20.0 - 30.5 s [facility] Comment on above: NOTE: The therapeuti c time for Heparin anticoagulation, based on Xa activity inhibition, is an APTT of 46-80 seconds. INR Coag (Bld) [Relative time] 1.1 {INR} [facility] Comment on above: Recommended Anticoag ulant [...] Interpretation and review of laboratory results Abnormal [facility] PT Coag (PPP) [Time] 11.4 s 9.0 - 12.0 s [facility] Comment on above: . Test Performed by [facility], [address] [place], [place] [id number] [place] [address] LAB [facility] Protime AND APTTon aPTT Coag (Bld) [Time] 30.7 s High 20.0-30.5 [facility] Comment on above: Result Comment: NOTE : The therapeutic time for Heparin anticoagulation, based on Xa activity inhibition, is an APTT of 46-80 seconds. Performed By: #### H MITALI BRAR #### [facility] [address] [place] [address] INR 1.1 Normal 0.9-1.1 [facility] Comment on above: Result Comment: Yefri mmended [...] Performed By: #### H MITALI BRAR #### [facility] [address] [place] [address] PT Coag (PPP) [Time] 11.4 s Normal 9.0-12.0 [facility] Comment on above: Result Comment: . Performed By: #### H KORIN BRAR3 #### [facility] [address] [place] [address] SARS-CoV-2, Flu A/B and RSVo n 03-18-2021 SARS-CoV-2 (COVID-19) RNA SHIRLEY+probe Ql (Unsp spec) SARS-CoV-2 --> Status: F Not Detected. Flu A PCR --> Status: F Not Detected. Flu B PCR --> Status: F Not Detected. RSV PCR --> Status: F DETECTED Expected Result: Not Detected _ Method: Real-time, RT-PCR This assay was developed by [employer] and distributed under an Emergency Use Authorization (EUA) granted by the FDA for the qualitative detection of nucleic acids from SARS-CoV-2, Influenza A, Influenza B, and Respiratory Syncytial Virus. Provider and patient fact sheets can be found at https://www.fda.gov/m edia/789913/download and https://www.fda.gov/m edia/179221/download. Expected Result: Not Detected _ Method: Real-time, RT-PCR This assay was developed by [employer] and distributed under an Emergency Use Authorization (EUA) granted by the FDA for the qualitative detection of nucleic acids from SARS-CoV-2, Influenza A, Influenza B, and Respiratory Syncytial Virus. Provider and patient fact sheets can be found at https://www.[facility].gov/ edia/974434/download and https://www.[facility].gov/ edia/316774/download. Abnormal [facility] Comment on above: Performed By: #### C VFLR #### [facility] [address] [place] [address] , [address] TS GELon 03-18-2021 TS GEL ABO Group: O Rh, Gel: POS Antibody Screen Gel: NEG Normal [facility] Comment on above: Performed By: #### T SGL #### [email or web address] TYPE AND SCREENon 03-18-2021 ABO Grouping O [facility] Positive [facility] Test Performed by [employer] [facility], [address], [place], [place] [address] [facility] XR CHEST PORTABLEon 03-18-20 Patient Name: KATHYA HOOPER Diagnostic Radiology ACCESSION EXAM DATE/TIME PROCEDURE ORDERING PROVIDER [id number] 03/18/2021 15:30 EST CR Chest Portable [id number] BOO CASTRO CPT code 34588 Reason For Exam (CR Chest Portable) sob, [...] KRIKOR Transcribed Date and Time: 03/18/2021 3:35 [facility] Alejandra Turner MD - 03/18/2021 [id number] Radiology ACCESSION EXAM DATE/TIME PROCEDURE ORDERING PROVIDER [id number] 03/18/2021 15:30 EST CR Chest Portable [id number] -BOO CASTRO CPT code 36038 Reason For Exam (CR Chest Portable) sob, [...] KRIKOR Transcribed Date and Time: 03/18/2021 3:35 [facility] Work Phone: Radiology Study observation (narrative) [facility] Work Phone: XR CHEST PORTABLEOrdered By: Alejandra Munoz on 03-18-2021 [facility] Work Phone: ED Provider Noteon ED Provider Note - Attestation signed by Edwin Montejo MD at 10/31/2020 7:09 AM Emergency Medicine Attending Note This patient was seen and treated independently by the professional golf tournament player. I was present and available in the [...] Date ? TREVER (acute kidney injury) ([facility]LY [facility]) ? Alcohol abuse 07/08/2018 ? Anxiety ? Depression ? Fall 06/2018 ? Schizophrenia (FORMERLY [facility]) SURGICALHISTORY Past Surgical History: Procedure [...] Strain: ? (more content not included)... Normal [facility] [place] GI TUBE EVALUATION W CONT RASTOrdered By: Helen Toledo on 10-30-2020 Patient Name: KATHYA HOOPER Fluoroscopy ACCESSION EXAM DATE/TIME PROCEDURE ORDERING PROVIDER [id number] 10/30/2020 15:07 EDT RF Intro Long GI Tube w/ KRISTA TOLEDO, HELEN Rojas CPT code 43183 Reason For Exam (RF Intro Long GI [...] J Transcribed Date and Time: 10/30/2020 4:06 [facility] Work Phone: Jaqu[facility], [facility] Incoming Radiology Results From [facility] - 10/30/2020 4:07 PM EDT Patient Name: KATHYA HOOPER Fluoroscopy ACCESSION EXAM DATE/TIME PROCEDURE ORDERING PROVIDER [id number] 10/30/2020 15:07 EDT RF Intro Long GI Tube w/ KRISTA TOLEDO AMY L Fluoro CPT code 63509 Reason For Exam (RF Intro Long GI [...] J Transcribed Date and Time: 10/30/2020 4:06 [facility] Work Phone: [facility] Work Phone: RF Intro Long GI Tube w/ Flu oroon 10-30-2020 RF Intro Long GI Tube w/ Fluoro Patient Name: KATHYA HOOPER Fluoroscopy ACCESSION EXAM DATE/TIME PROCEDURE ORDERING PROVIDER [id number] 10/30/2020 15:07 EDT RF Intro Long GI Tube w/ KRISTA TOLEDO AMY L Fluoro CPT code 44548 Reason For Exam (RF Intro Long GI [...] J Transcribed Date and Time: 10/30/2020 4:06 [facility] ED Provider Noteon ED Provider Note [facility] EMERGENCY DEPARTMENT ENCOUNTER Pt Name: Ktahya Hooper Birthdate 1955 Date of evaluation: 09/22/2020 [...] Gatherings with Friends and Family: ? Attends Episcopalian Services: ? Active Member of Clubs or [...] Soft, non-distended (more content not included)... Normal [facility] [place] GI TUBE EVALUATION W CONT RASTOrdered By: Elizabeth Moura on 09-22-2020 Patient Name: KATHYA HOOPER Fluoroscopy ACCESSION EXAM DATE/TIME PROCEDURE ORDERING PROVIDER [id number] 09/22/2020 04:09 EDT RF Intro Long GI Tube w/ 5816 -ELIZABETH MOURA CPT code 74732 Reason For Exam (RF Intro Long GI [...] Phone: [facility], [facility] Incoming Radiology Results From [facility] - 09/22/2020 5:11 AM EDT Patient Name: KATHYA HOOPER Fluoroscopy ACCESSION EXAM DATE/TIME PROCEDURE ORDERING PROVIDER [id number] 09/22/2020 04:09 EDT RF Intro Long GI Tube w/ 5816 ELIZABETH BARBER CPT code 94369 Reason For Exam (RF Intro Long GI [...] and Time: 09/22/2020 5:11 [facility] Work Phone: [facility] Work Phone: RF Intro Long GI Tube w/ Flu oroon 09-22-2020 RF Intro Long GI Tube w/ Fluoro [facility]: [id number] Fluoroscopy ACCESSION EXAM DATE/TIME PROCEDURE ORDERING PROVIDER [id number] 09/22/2020 04:09 EDT RF Intro Long GI Tube w/ 5816 -ELIZABETH MOURA CPT code 58923 Reason For Exam (RF Intro Long GI [...] Transcribed Date and Time: 09/22/2020 5:11 Normal [facility] ED Provider Noteon ED Provider Note Anam[facility] ED EMERGENCY DEPARTMENT ENCOUNTER Pt Name: Kathya [...] otherwise acutely negative except as in the [place]. PAST MEDICAL HISTORY Past Medical History: Diagnosis [...] (AQUAPHOR) ointment Apply topically as needed. Balsam [place] Oil (VENELEX) OINT ointment Apply topically every [...] file Gets together: Not on file Attends orthodoxy service: Not on file Active member of [...] for level (more content not included)... Normal [facility] [place] GI TUBE EVALUATION W BRANDON Warner 06-26-2020 Patient Name: KATHYA HOOPER Fluoroscopy ACCESSION EXAM DATE/TIME PROCEDURE ORDERING PROVIDER [id number] 06/26/2020 20:20 EST RF Intro Long GI Tube w/ 146548 -GOMBASH, ABELARDO Fluoro CPT code 38687 Reason For Exam (RF Intro Long GI [...] Phone: [facility], [facility] Incoming Radiology Results From [facility] - 06/26/2020 9:16 PM EST Patient Name: KATHYA HOOPER Fluoroscopy ACCESSION EXAM DATE/TIME PROCEDURE ORDERING PROVIDER [id number] 06/26/2020 20:20 EST RF Intro Long GI Tube w/ 659110 -GOMBASH, ABELARDO Fluoro CPT code 26996 Reason For Exam (RF Intro Long GI [...] Fluoroscopy ACCESSION EXAM DATE/TIME PROCEDURE ORDERING PROVIDER [id number] 06/26/2020 20:20 EST RF Intro Long GI Tube w/ 233443 -ABELARDO RIOS CPT code 10178 Reason For Exam (RF Intro Long GI [...] mL of contrast was administered by Dr. Gombash through a PEG tube. I was not present for the examination. Contrast is noted within the stomach and duodenum. There is no evidence of extravasation of contrast. Report Dictated on Final Dictating Physician: MD HOLDER LAUREN B Signed Date and Time: 06/26/2020 9:15 pm Signed by: MD HOLDER LAUREN B Transcribed Date and Time: 06/26/2020 9:16 Normal [facility] Clinical Summary: HMSPatient IDon 05-22-2019 WOP [facility] Work Phone: Office Visit: New - visi t with practice, Rm: 2on 05-22-2019 NEGATED: Highlighted rowCT scan history of the right lower extremity on 05/16/2019 at [facility] Work Phone: NEGATED: Highlighted rowTobacco smoking status NHIS current someday smoker [facility] Work Phone: NEGATED: Highlighted rowxray history of the pelvis with hip on 05/11/2019 at [facility] , of the pelvis on 05/13/2019 at [facility] Imaging [facility] Work Phone: CT LOWER EXTREMITY RIGHT WO CONTRASTOrdered By: Elizabeth Moura on 05-16-2019 Patient Name: KATHYA HOOPER ---CT--- Exam Date/Time 05/16/2019 21:10:[address] Low Ext w/o Contrast Right Ordering Physician 58ELIZABETH LU Accession Number [id number] CPT4 Codes 16424 () Reason For Exam right hip pain, [...] RISA Transcribed Date and Time: 05/16/2019 9:24 [facility] Work Phone: [facility] Results From [facility] - 05/16/2019 9:24 PM EST Patient Name: KATHYA HOOPER ---CT--- Exam Date/Time 05/16/2019 21:10:[address] Low Ext w/o Contrast Right Ordering Physician ELIZABETH BARKER Accession Number [id number] CPT4 Codes 22827 () Reason For Exam right hip pain, [...] RISA Transcribed Date and Time: 05/16/2019 9:24 [facility] Work Phone: Differential,Body Fluidson 0 09-27-2018 Other Cells 46 % Normal [facility] Comment on above: Result Comment: Bloo dy specimen with reactive mesothelial cells and chronic inflammation with occasional hemophagocytosis. 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 [place] [address] CULTURE AND STAIN - FLUIDon 09-25-2018 CULTURE AND STAIN - FLUID CULTURE & STAIN - FLUID --> Status: F No growth at 5 days. STAIN GRAM --> Status: F Moderate polymorphonuclear cells/lpf. Moderate mononuclear cells/lpf No organisms seen. Cytocentrifugation performed. Moderate mononuclear cells/lpf No organisms seen. Cytocentrifugation performed. Normal [facility] Comment on above: Performed By: #### H EMDF, PT, BMP3M, PHOS3, MG3, CK3 #### [place] [address] [address] [place], [place] #### VD25H #### [facility] [address] [place] [address] Cell Count,Body Fluidon - Nucleated Cells 2391 {cells}/uL Normal [facility] Comment on above: Performed By: #### H EMDF, PT, BMP3M, PHOS3, MG3, CK3 #### [facility] [address], [place] #### VD25H #### [facility] [address] [place] [address] RBC [place] [address] {RBC}/uL Normal [facility] Comment on above: Performed By: #### H EMDF, PT, BMP3M, PHOS3, MG3, CK3 #### [facility] [address], [place] #### VD25H #### [facility] [address] [place] [address] Fluid Type Thoracentesis Normal [facility] Comment on above: Performed By: #### H EMDF, PT, BMP3M, PHOS3, MG3, CK3 #### [place] [address] [address] [place], [place] #### VD25H #### [facility] [address] [place] [address] Differential,Body Fluidson 0 09-25-2018 Lymphocytes/100 WBC (Bld) 28 % Normal [facility] Comment on above: Performed By: #### H EMDF, PT, BMP3M, PHOS3, MG3, CK3 #### [facility] [address] #### VD25H #### [facility] [address] [place] [address] Monocytes/100 WBC (Bld) 1 % Normal [facility] Comment on above: Performed By: #### H EMDF, PT, BMP3M, PHOS3, MG3, CK3 #### [place] [address] [address] [place], [place] #### VD25H #### [facility] [address] [place] [address] Neutrophils/100 WBC (Bld) 25 % Normal [facility] Comment on above: Performed By: #### H EMDF, PT, BMP3M, PHOS3, MG3, CK3 #### [place] [address] [address] [place], [place] #### VD25H #### [facility] [address] [place] [address] Cells Counted for Diff 100 Normal [facility] Comment on above: Performed By: #### H EMDF, PT, BMP3M, PHOS3, MG3, CK3 #### [place] [address] [address] [place], [place] #### VD25H #### [facility] [address] [place] [address] LDH, Body Fluidon 09-25-2018 LDH, Body Fluid 174 U/L Normal No Range [facility] Comment on above: Performed By: #### H EMDF, PT, BMP3M, PHOS3, MG3, CK3 #### [place] [address] [address] [place] #### VD25H #### [facility] [address] [place] [address] Protein, Total Body Fluidon 09-25-2018 Protein,Total-Body Fld 3.4 g/dL Normal No Range [facility] Comment on above: Performed By: #### H EMDF, PT, BMP3M, PHOS3, MG3, CK3 #### [facility] [address] [facility] [place] [address] #### VD25H #### [facility] [address] [place] [address] US Thora-Aspir Pleura w/ Evelin geon 09-25-2018 US Thora-Aspir Pleura w/ Image Patient Name: KATHYA HOOPER Ultrasound Exam Date/Time 09/25/2018 13:23:41 EDT Exam US Thora-Aspir Pleura w/ Image Ordering Physician SALO DAVIS Accession Number [id number] CPT4 Codes 01250 () Reason For Exam pleural effusion Report [...] Transcribed Date and Time: 09/25/2018 3:07 Normal [facility] CULTURE MYCOBACTERIAon 09-03 CULTURE MYCOBACTERIA CULTURE MYCOBACTERI A --> Status: F No acid-fast bacilli isolated after 6 weeks incubation. Normal [facility] Comment on above: Performed By: #### H EMDF, PT, BMP3M, PHOS3, MG3, CK3 #### [employer] [facility] [address] [place] [address] #### VD25H #### [facility] [address] [place] [address] CULTURE URINEon 08-23-2018 CULTURE URINE CULTURE URINE --> Status: F No growth (<1,000 CFU/ml). Normal [facility] Comment on above: Order Comment: Speci men Source Comment:Urine, clean catch Performed By: #### H EMDF, PT, BMP3M, PHOS3, MG3, CK3 #### [facility] [address] [place] [address] #### VD25H #### [facility] [address] [place] [address] CR Chest Portableon 08-23-19 19 CR Chest Portable Patient Name: KATHYA HOOPER Diagnostic Radiology Exam Date/Time 08/22/2018 07:07:07 EDT Exam CR Chest Portable Ordering Physician [id number] KHANNA Accession Number [id number] CPT4 Codes 90131 () Reason For Exam dyspnea Report Portable [...] Dictated: 08/22/2018 7:31 am Dictating Physician: MD ELIZABETH, PETE Signed Date and Time: 08/22/2018 7:32 am Signed by: MD ELIZABETH, PETE Transcribed Date and Time: 08/22/2018 7:31 Normal [facility] Glucose,Bedsideon 08-22-2018 Glucose mass conc 127 mg/dL High 70-100 [facility] Comment on above: Result Comment: Test performed by glucose meter. Results may be 10%-15% lower than serum/plasma values. (CLIA ID [id number]) Performed By: #### H EMDF, PT, BMP3M, PHOS3, MG3, CK3 #### [facility] [address], [place] #### VD25H #### [facility] [address] [place] [address] Urinalysis,Macroon 9 Appearance Nom (U) clear Normal Clear [facility] Comment on above: Performed By: #### H EMDF, PT, BMP3M, PHOS3, MG3, CK3 #### [facility] [address] #### VD25H #### [facility] [address] [facility] [place] [address] Bilirubin,Ur Negative Normal Negative [facility] Comment on above: Performed By: #### H EMDF, PT, BMP3M, PHOS3, MG3, CK3 #### [facility] [address] #### VD25H #### [facility] [address] [place] [address] Color Nom (U) dk.yel Normal Lt. Yellow [facility] Comment on above: Performed By: #### H EMDF, PT, BMP3M, PHOS3, MG3, CK3 #### [facility] [address] #### VD25H #### [facility] [address] [place] [address] Glucose Ql (U) NORM Normal Negative [facility] Comment on above: Performed By: #### H EMDF, PT, BMP3M, PHOS3, MG3, CK3 #### [facility] [address] [facility], [place] #### VD25H #### [facility] [address] [place] [address] Ketone,Urine Negative Normal Negative [facility] Comment on above: Performed By: #### H EMDF, PT, BMP3M, PHOS3, MG3, CK3 #### [facility] [address] [facility], [place] #### VD25H #### [facility] [address] [place] [address] Nitrite Ql (U) Negative Normal Negative [facility] Comment on above: Performed By: #### H EMDF, PT, BMP3M, PHOS3, MG3, CK3 #### [place] [address] [address] [facility], [place] #### VD25H #### [facility] [address] [place] [address] Occult Blood,Ur Negative Normal Negative [facility] Comment on above: Performed By: #### H EMDF, PT, BMP3M, PHOS3, MG3, CK3 #### [place] [address] [address] [facility], [place] #### VD25H #### [facility] [address] [place] [address] pH (U) 8.0 Normal 5.0-8.0 [facility] Comment on above: Performed By: #### H EMDF, PT, BMP3M, PHOS3, MG3, CK3 #### [place] [address] [address] [facility] #### VD25H #### [facility] [address] [place] [address] Protein mass conc (U) Negative Normal Negative [facility] Comment on above: Performed By: #### H EMDF, PT, BMP3M, PHOS3, MG3, CK3 #### [facility] [address] [facility] #### VD25H #### [facility] [address] [place] [address] Specific [place],Urine 1.015 Normal 1.005-1.030 [facility] Comment on above: Performed By: #### H EMDF, PT, BMP3M, PHOS3, MG3, CK3 #### [place] [address] [address] [place], [place] #### VD25H #### [facility] [address] [place] [address] Urobilinogen Qn (U) 1 mg/dL Normal 0-1 [facility] Comment on above: Performed By: #### H EMDF, PT, BMP3M, PHOS3, MG3, CK3 #### [address] [facility] #### VD25H #### [facility] [address] [place] [address] WBC #/vol (Bld) Negative Normal Negative [facility] Comment on above: Performed By: #### H EMDF, PT, BMP3M, PHOS3, MG3, CK3 #### [address], [place] #### VD25H #### [facility] [address] [place] [address] Basic Metabolic Panelon 04-2 Calcium mass conc 7.8 mg/dL Low 8.4-10.4 [facility] Comment on above: Performed By: #### H EMDF, PT, BMP3M, PHOS3, MG3, CK3 #### [address] [facility] #### VD25H #### [facility] [address] [place] [address] Glucose mass conc 102 mg/dL High 70-100 [facility] Comment on above: Performed By: #### H EMDF, PT, BMP3M, PHOS3, MG3, CK3 #### [place] [address] [address] [facility] #### VD25H #### [facility] [address] [place] [address] Anion gap molar conc 0 Normal [facility] Comment on above: Performed By: #### H EMDF, PT, BMP3M, PHOS3, MG3, CK3 #### [address] [address] #### VD25H #### [facility] [address] [place] [address] CO2 molar conc 37 mmol/L High 22-30 [facility] Comment on above: Performed By: #### H EMDF, PT, BMP3M, PHOS3, MG3, CK3 #### [address] [address] #### VD25H #### [facility] [address] [place] [address] Creatinine mass conc 0.46 mg/dL Low 0.52-1.25 [facility] Comment on above: Performed By: #### H EMDF, PT, BMP3M, PHOS3, MG3, CK3 #### [address] [address] #### VD25H #### [facility] [address] [place] [address] GFR/1.73 sq M predicted among blacks MDRD vol rate/area (S/P/Bld) mL/min/{1.73_m2} Normal >60 [facility] Comment on above: Performed By: #### H EMDF, PT, BMP3M, PHOS3, MG3, CK3 #### [address] [address] #### VD25H #### [facility] [address] [place] [address] GFR/1.73 sq M predicted among non-blacks MDRD vol rate/area (S/P/Bld) mL/min/{1.73_m2} Normal >60 [facility] Comment on above: Result Comment: Sour ce- MDRD equation with creatinine calibration to IDMS(NKDEP) eGFR not recommended for drug dose adjustment Performed By: #### H EMDF, PT, BMP3M, PHOS3, MG3, CK3 #### [place] [address] [address] [place], [place] #### VD25H #### [facility] [address] [place] [address] Urea nitrogen mass conc 7 mg/dL Normal 7-20 [facility] Comment on above: Performed By: #### H EMDF, PT, BMP3M, PHOS3, MG3, CK3 #### [place] [address] [address] [place] #### VD25H #### [facility] [address] [place] [address] Potassium molar conc 3.7 mmol/L Normal 3.5-5.1 [facility] Comment on above: Performed By: #### H EMDF, PT, BMP3M, PHOS3, MG3, CK3 #### [place] [address] [address] [place], [place] #### VD25H #### [facility] [address] [place] [address] Chloride molar conc 101 mmol/L Normal 98-107 [facility] Comment on above: Performed By: #### H EMDF, PT, BMP3M, PHOS3, MG3, CK3 #### [place] [address] [address] [place], [place] #### VD25H #### [facility] [address] [place] [address] Sodium molar conc 138 mmol/L Normal 135-145 [facility] Comment on above: Performed By: #### H EMDF, PT, BMP3M, PHOS3, MG3, CK3 #### [place] [address] [address] [facility], [place] #### VD25H #### [facility] [address] [place] [address] CR Chest Portableon 08-22-19 19 CR Chest Portable Patient Name: KATHYA HOOPER Diagnostic Radiology Exam Date/Time 08/21/2018 09:46:47 EDT Exam CR Chest Portable Ordering Physician MALLORY STAPLES Accession Number [id number] CPT4 Codes 25488 () Reason For Exam edema Report PORTABLE [...] Transcribed Date and Time: 08/21/2018 11:14 Normal [facility] CULTURE ANAEROBEon 9 CULTURE ANAEROBE CULTURE ANAEROBE --> Status: F No growth of anaerobes at 5 days. Normal [facility] Comment on above: Order Comment: or co llected Performed By: #### H EMDF, PT, BMP3M, PHOS3, MG3, CK3 #### [facility] [address] [place] [address] #### VD25H #### [facility] [address] [facility] [place] [address] Glucose,Bedsideon 08-21-2018 Glucose mass conc 124 mg/dL High 70-100 [facility] Comment on above: Result Comment: Test performed by glucose meter. Results may be 10%-15% lower than serum/plasma values. (CLIA ID [id number]) Performed By: #### H EMDF, PT, BMP3M, PHOS3, MG3, CK3 #### [facility] [address] [place] [address] #### VD25H #### [facility] [address] [place] [address] Glucose mass conc 135 mg/dL High 70-100 [facility] Comment on above: Result Comment: Test performed by glucose meter. Results may be 10%-15% lower than serum/plasma values. (CLIA ID [id number]) Performed By: #### H EMDF, PT, BMP3M, PHOS3, MG3, CK3 #### [address] [address] [place] [address] #### VD25H #### [facility] [address] [place] [address] Glucose mass conc 131 mg/dL High 70-100 [facility] Comment on above: Result Comment: Test performed by glucose meter. Results may be 10%-15% lower than serum/plasma values. (CLIA ID [id number]) Performed By: #### H EMDF, PT, BMP3M, PHOS3, MG3, CK3 #### [address] [address] #### VD25H #### [facility] [address] [place] [address] Glucose mass conc 112 mg/dL High 70-100 [facility] Comment on above: Result Comment: Test performed by glucose meter. Results may be 10%-15% lower than serum/plasma values. (CLIA ID [id number]) Performed By: #### H EMDF, PT, BMP3M, PHOS3, MG3, CK3 #### [address] [place] [address] #### VD25H #### [facility] [address] [place] [address] Basic Metabolic Panelon 04-2 Anion gap molar conc 4 Normal [facility] Comment on above: Performed By: #### H EMDF, PT, BMP3M, PHOS3, MG3, CK3 #### [address], [place] #### VD25H #### [facility] [address] [place] [address] Calcium mass conc 7.6 mg/dL Low 8.4-10.4 [facility] Comment on above: Performed By: #### H EMDF, PT, BMP3M, PHOS3, MG3, CK3 #### [place] [address] [address] [facility], [place] #### VD25H #### [facility] [address] [place] [address] CO2 molar conc 36 mmol/L High 22-30 [facility] Comment on above: Performed By: #### H EMDF, PT, BMP3M, PHOS3, MG3, CK3 #### [place] [address] [address] [facility], [place] #### VD25H #### [facility] [address] [place] [address] Glucose mass conc 121 mg/dL High 70-100 [facility] Comment on above: Performed By: #### H EMDF, PT, BMP3M, PHOS3, MG3, CK3 #### [place] [address] [address] [facility] #### VD25H #### [facility] [address] [place] [address] Urea nitrogen mass conc 9 mg/dL Normal 7-20 [facility] Comment on above: Performed By: #### H EMDF, PT, BMP3M, PHOS3, MG3, CK3 #### [place] [address] [address] [facility] #### VD25H #### [facility] [address] [place] [address] Creatinine mass conc 0.51 mg/dL Low 0.52-1.25 [facility] Comment on above: Performed By: #### H EMDF, PT, BMP3M, PHOS3, MG3, CK3 #### [place] [address] [address] [facility], [place] #### VD25H #### [facility] [address] [place] [address] GFR/1.73 sq M predicted among blacks MDRD vol rate/area (S/P/Bld) mL/min/{1.73_m2} Normal >60 [facility] Comment on above: Performed By: #### H EMDF, PT, BMP3M, PHOS3, MG3, CK3 #### [address] [place] [address] #### VD25H #### [facility] [address] [place] [address] GFR/1.73 sq M predicted among non-blacks MDRD vol rate/area (S/P/Bld) mL/min/{1.73_m2} Normal >60 [facility] Comment on above: Result Comment: Sour ce- MDRD equation with creatinine calibration to IDMS(NKDEP) eGFR not recommended for drug dose adjustment Performed By: #### H EMDF, PT, BMP3M, PHOS3, MG3, CK3 #### [address] #### VD25H #### [facility] [address] [place] [address] Chloride molar conc 100 mmol/L Normal 98-107 [facility] Comment on above: Performed By: #### H EMDF, PT, BMP3M, PHOS3, MG3, CK3 #### [address] #### VD25H #### [facility] [address] [place] [address] Potassium molar conc 3.3 mmol/L Low 3.5-5.1 [facility] Comment on above: Performed By: #### H EMDF, PT, BMP3M, PHOS3, MG3, CK3 #### [address] #### VD25H #### [facility] [address] [place] [address] Sodium molar conc 140 mmol/L Normal 135-145 [facility] Comment on above: Performed By: #### H EMDF, PT, BMP3M, PHOS3, MG3, CK3 #### [facility] [address] [place], [place] #### VD25H #### [facility] [address] [place] [address] Glucose,Bedsideon 08-20-2018 Glucose mass conc 121 mg/dL High 70-100 [facility] Comment on above: Result Comment: Test performed by glucose meter. Results may be 10%-15% lower than serum/plasma values. (CLIA ID [id number]) Performed By: #### H EMDF, PT, BMP3M, PHOS3, MG3, CK3 #### [address] #### VD25H #### [facility] [address] [facility] [place] [address] Glucose mass conc 127 mg/dL High 70-100 [facility] Comment on above: Result Comment: Test performed by glucose meter. Results may be 10%-15% lower than serum/plasma values. (CLIA ID [id number]) Performed By: #### H EMDF, PT, BMP3M, PHOS3, MG3, CK3 #### [address] #### VD25H #### [facility] [address] [place] [address] Hep A Abs, Totalon 9 Hep A Abs, Total Negative Normal Negative [facility] Comment on above: Result Comment: Perf ormed by [employer], [address] [place] [id number] [email or web address] Lay MD - Lab. Director Performed By: #### H EMDF, PT, BMP3M, PHOS3, MG3, CK3 #### [facility] [address] [place], [place] #### VD25H #### [facility] [address] [place] [address] Basic Metabolic Panelon 04-2 Anion gap molar conc 1 Normal [facility] Comment on above: Performed By: #### H EMDF, PT, BMP3M, PHOS3, MG3, CK3 #### [facility] [address] [facility] #### VD25H #### [facility] [address] [place] [address] Calcium mass conc 7.6 mg/dL Low 8.4-10.4 [facility] Comment on above: Performed By: #### H EMDF, PT, BMP3M, PHOS3, MG3, CK3 #### [address] #### VD25H #### [facility] [address] [place] [address] CO2 molar conc 33 mmol/L High 22-30 [facility] Comment on above: Performed By: #### H EMDF, PT, BMP3M, PHOS3, MG3, CK3 #### [place] [address] [address] [facility] #### VD25H #### [facility] [address] [place] [address] Glucose mass conc 139 mg/dL High 70-100 [facility] Comment on above: Performed By: #### H EMDF, PT, BMP3M, PHOS3, MG3, CK3 #### [place] [address] [address] [place] #### VD25H #### [facility] [address] [place] [address] Urea nitrogen mass conc 10 mg/dL Normal 7-20 [facility] Comment on above: Performed By: #### H EMDF, PT, BMP3M, PHOS3, MG3, CK3 #### [place] [address] [facility] [place] #### VD25H #### [facility] [address] [place] [address] Creatinine mass conc 0.57 mg/dL Normal 0.52-1.25 [facility] Comment on above: Performed By: #### H EMDF, PT, BMP3M, PHOS3, MG3, CK3 #### [address] #### VD25H #### [facility] [address] [place] [address] GFR/1.73 sq M predicted among blacks MDRD vol rate/area (S/P/Bld) mL/min/{1.73_m2} Normal >60 [facility] Comment on above: Performed By: #### H EMDF, PT, BMP3M, PHOS3, MG3, CK3 #### [address] #### VD25H #### [facility] [address] [facility] [place] [address] GFR/1.73 sq M predicted among non-blacks MDRD vol rate/area (S/P/Bld) mL/min/{1.73_m2} Normal >60 [facility] Comment on above: Result Comment: Sour ce- MDRD equation with creatinine calibration to IDMS(NKDEP) eGFR not recommended for drug dose adjustment Performed By: #### H EMDF, PT, BMP3M, PHOS3, MG3, CK3 #### [address] #### VD25H #### [facility] [address] [place] [address] Potassium molar conc 3.4 mmol/L Low 3.5-5.1 [facility] Comment on above: Performed By: #### H EMDF, PT, BMP3M, PHOS3, MG3, CK3 #### [address] #### VD25H #### [facility] [address] [place] [address] Chloride molar conc 104 mmol/L Normal 98-107 [facility] Comment on above: Performed By: #### H EMDF, PT, BMP3M, PHOS3, MG3, CK3 #### [facility] [address] [place], [place] #### VD25H #### [facility] [address] [place] [address] Sodium molar conc 138 mmol/L Normal 135-145 [facility] [employer] [facility] Comment on above: Performed By: #### H EMDF, PT, BMP3M, PHOS3, MG3, CK3 #### [facility] [employer] [address] [place], [place] #### VD25H #### [facility] [employer] [address] [place] [address] CULT./ST. BACTERIAon 019 CULT./ST. BACTERIA STAIN GRAM [...] 0.12 S Vancomycin(CHRISTI) = 1 S Normal [facility] Comment on above: Order Comment: or co llected Performed By: #### H EMDF, PT, BMP3M, PHOS3, MG3, CK3 #### [facility] [employer] [address] [place] [address] #### VD25H #### [employer] [facility] [facility] [address] [place] [address] Basic Metabolic Panelon 04-2 Calcium mass conc 7.8 mg/dL Low 8.4-10.4 [facility] Comment on above: Performed By: #### H EMDF, PT, BMP3M, PHOS3, MG3, CK3 #### [facility] [employer] [address] #### VD25H #### [facility] [address] [place] [address] Glucose mass conc 104 mg/dL High 70-100 [facility] Comment on above: Performed By: #### H EMDF, PT, BMP3M, PHOS3, MG3, CK3 #### [employer] [address] [place] [address] #### VD25H #### [employer] [facility] [address] [place] [address] Urea nitrogen mass conc 12 mg/dL Normal 7-20 [facility] Comment on above: Performed By: #### H EMDF, PT, BMP3M, PHOS3, MG3, CK3 #### [employer] [place] [phone] #### VD25H #### [facility] [address] [place] [address] Anion gap molar conc 5 Normal [facility] Comment on above: Performed By: #### H EMDF, PT, BMP3M, PHOS3, MG3, CK3 #### [place] [address] [address] [place] #### VD25H #### [facility] [address] [place] [address] CO2 molar conc 26 mmol/L Normal 22-30 [facility] Comment on above: Performed By: #### H EMDF, PT, BMP3M, PHOS3, MG3, CK3 #### [place] [address] [address] [place] #### VD25H #### [place] [address] [place] [address] Creatinine mass conc 0.61 mg/dL Normal 0.52-1.25 [facility] Comment on above: Performed By: #### H EMDF, PT, BMP3M, PHOS3, MG3, CK3 #### [address] #### VD25H #### [facility] [address] [place] [address] GFR/1.73 sq M predicted among blacks MDRD vol rate/area (S/P/Bld) mL/min/{1.73_m2} Normal >60 [facility] Comment on above: Performed By: #### H EMDF, PT, BMP3M, PHOS3, MG3, CK3 #### [place] [address] [place] #### VD25H #### [place] [address] [place] [address] GFR/1.73 sq M predicted among non-blacks MDRD vol rate/area (S/P/Bld) mL/min/{1.73_m2} Normal >60 [facility] Comment on above: Result Comment: Sour ce- MDRD equation with creatinine calibration to IDMS(NKDEP) eGFR not recommended for drug dose adjustment Performed By: #### H EMDF, PT, BMP3M, PHOS3, MG3, CK3 #### [facility] [address] [place] #### VD25H #### [facility] [address] [place] [address] Chloride molar conc 107 mmol/L Normal 98-107 [facility] Comment on above: Performed By: #### H EMDF, PT, BMP3M, PHOS3, MG3, CK3 #### [place] [address] [address] [facility] #### VD25H #### [facility] [address] [place] [address] Potassium molar conc 3.4 mmol/L Low 3.5-5.1 [facility] Comment on above: Performed By: #### H EMDF, PT, BMP3M, PHOS3, MG3, CK3 #### [place] [address] [address] [facility] #### VD25H #### [facility] [address] [place] [address] Sodium molar conc 138 mmol/L Normal 135-145 [facility] Comment on above: Performed By: #### H EMDF, PT, BMP3M, PHOS3, MG3, CK3 #### [place] [address] [address] [facility] #### VD25H #### [facility] [address] [place] [address] Glucose,Bedsideon 08-18-2018 Glucose mass conc 113 mg/dL High 70-100 [facility] Comment on above: Result Comment: Test performed by glucose meter. Results may be 10%-15% lower than serum/plasma values. (CLIA ID [id number]) Performed By: #### H EMDF, PT, BMP3M, PHOS3, MG3, CK3 #### [place] [address] [address] [facility] #### VD25H #### [facility] [address] [place] [address] Hemogram w/ Autodiffon 08-18 Erythrocyte distribution width Ratio (RBC) 14.4 % Normal 11.5-14.5 [facility] Comment on above: Performed By: #### H EMDF, PT, BMP3M, PHOS3, MG3, CK3 #### [address] #### VD25H #### [facility] [address] [place] [address] Hematocrit Volume Fraction (Bld) 29.3 % Low 40.0-52.0 [facility] Comment on above: Performed By: #### H EMDF, PT, BMP3M, PHOS3, MG3, CK3 #### [address] #### VD25H #### [place] [address] [place] [address] Hemoglobin mass conc (Bld) 9.8 g/dL Low 13.0-18.0 [facility] Comment on above: Performed By: #### H EMDF, PT, BMP3M, PHOS3, MG3, CK3 #### [address] #### VD25H #### [place] [address] [place] [address] MCH Entitic mass (RBC) 28.0 pg Normal 26.0-34.0 [facility] Comment on above: Performed By: #### H EMDF, PT, BMP3M, PHOS3, MG3, CK3 #### [address] #### VD25H #### [place] [address] [place] [address] MCHC mass conc (RBC) 33.4 % Normal 32.0-36.0 [facility] Comment on above: Performed By: #### H EMDF, PT, BMP3M, PHOS3, MG3, CK3 #### [address] [place] #### VD25H #### [facility] [address] [place] [address] MCV Entitic volume (RBC) 84.1 fL Normal 80.0-98.0 [facility] Comment on above: Performed By: #### H EMDF, PT, BMP3M, PHOS3, MG3, CK3 #### [address] #### VD25H #### [facility] [address] [place] [address] Platelet mean volume Entitic volume (Bld) 7.9 fL Normal 7.4-10.4 [facility] Comment on above: Performed By: #### H EMDF, PT, BMP3M, PHOS3, MG3, CK3 #### [address] #### VD25H #### [place] [address] [place] [address] Platelets #/vol (Bld) 301 10*3/uL Normal 140-440 [facility] Comment on above: Performed By: #### H EMDF, PT, BMP3M, PHOS3, MG3, CK3 #### [address] #### VD25H #### [place] [address] [place] [address] RBC #/vol (Bld) 3.49 10*6/uL Low 4.40-5.90 [facility] Comment on above: Performed By: #### H EMDF, PT, BMP3M, PHOS3, MG3, CK3 #### [address] #### VD25H #### [facility] [address] [place] [address] WBC #/vol (Bld) 8.3 10*3/uL Normal 3.6-10.7 [facility] Comment on above: Performed By: #### H EMDF, PT, BMP3M, PHOS3, MG3, CK3 #### [address] [place], [place] #### VD25H #### [facility] [address] [place] [address] Magnesiumon 08-18-2018 Magnesium mass conc 2.0 mg/dL Normal 1.6-2.3 [facility] Comment on above: Performed By: #### H EMDF, PT, BMP3M, PHOS3, MG3, CK3 #### [address] [place], [place] #### VD25H #### [facility] [address] [place] [address] Manual Diffon 08-18-2018 Abs Neutrophile Cnt 5.1 10*3/uL Normal 2.2-8.2 [facility] Comment on above: Performed By: #### H EMDF, PT, BMP3M, PHOS3, MG3, CK3 #### [address] #### VD25H #### [facility] [address] [place] [address] Bands 3 % Normal 0-3 [facility] Comment on above: Performed By: #### H EMDF, PT, BMP3M, PHOS3, MG3, CK3 #### [address] #### VD25H #### [facility] [address] [place] [address] Eosinophils #/vol (Bld) 0.2 10*3/uL Normal 0.0-0.5 [facility] Comment on above: Performed By: #### H EMDF, PT, BMP3M, PHOS3, MG3, CK3 #### [address] #### VD25H #### [facility] [address] [place] [address] Eosinophils/100 WBC (Bld) 2 % Normal 1-6 [facility] Comment on above: Performed By: #### H EMDF, PT, BMP3M, PHOS3, MG3, CK3 #### [facility] [address] [place] #### VD25H #### [facility] [address] [place] [address] Lymphocytes #/vol (Bld) 2.1 10*3/uL Normal 1.1-4.5 [facility] Comment on above: Performed By: #### H EMDF, PT, BMP3M, PHOS3, MG3, CK3 #### [place] [address] [place] #### VD25H #### [facility] [address] [place] [address] Lymphocytes/100 WBC (Bld) 25 % Normal 20-40 [facility] Comment on above: Performed By: #### H EMDF, PT, BMP3M, PHOS3, MG3, CK3 #### [place] [address] [place] #### VD25H #### [facility] [address] [place] [address] Metamyelocytes 1 % Abnormal <1 [facility] Comment on above: Performed By: #### H EMDF, PT, BMP3M, PHOS3, MG3, CK3 #### [place] [address] [place] #### VD25H #### [facility] [address] [place] [address] Monocytes #/vol (Bld) 0.6 10*3/uL Normal 0.2-1.1 [facility] Comment on above: Performed By: #### H EMDF, PT, BMP3M, PHOS3, MG3, CK3 #### [place] [address] [place] #### VD25H #### [facility] [address] [place] [address] Monocytes/100 WBC (Bld) 7 % Normal 2-10 [facility] Comment on above: Performed By: #### H EMDF, PT, BMP3M, PHOS3, MG3, CK3 #### [place] [address] [address] [place] #### VD25H #### [facility] [address] [place] [address] Myelocytes 1 % Abnormal <1 [facility] Comment on above: Performed By: #### H EMDF, PT, BMP3M, PHOS3, MG3, CK3 #### [place] [address] [place] #### VD25H #### [facility] [address] [place] [address] Protein mass conc 2 % Abnormal <1 [facility] Comment on above: Performed By: #### H EMDF, PT, BMP3M, PHOS3, MG3, CK3 #### [address] #### VD25H #### [facility] [address] [place] [address] RBC morphology finding Nom (Bld) See Prev Normal [facility] Comment on above: Performed By: #### H EMDF, PT, BMP3M, PHOS3, MG3, CK3 #### [address] [place], [place] #### VD25H #### [facility] [address] [place] [address] Seg Neutrophils 59 % Normal 40-80 [facility] Comment on above: Performed By: #### H EMDF, PT, BMP3M, PHOS3, MG3, CK3 #### [place] [address] [address] [place] #### VD25H #### [facility] [address] [place] [address] Abs Baso Cnt 0.0 10*3/uL Normal 0.0-0.2 [facility] Comment on above: Performed By: #### H EMDF, PT, BMP3M, PHOS3, MG3, CK3 #### [place] [address] [address] [place] #### VD25H #### [facility] [address] [place] [address] Basophils/100 WBC (Bld) 0 % Normal 0-2 [facility] Comment on above: Performed By: #### H EMDF, PT, BMP3M, PHOS3, MG3, CK3 #### [place] [address] [address] [place] #### VD25H #### [facility] [address] [place] [address] Cells counted 100 Normal [facility] Comment on above: Performed By: #### H EMDF, PT, BMP3M, PHOS3, MG3, CK3 #### [address] [place], [place] #### VD25H #### [facility] [address] [place] [address] Phosphoruson 08-18-2018 Phosphate mass conc 4.6 mg/dL High 2.5-4.5 [facility] Comment on above: Performed By: #### H EMDF, PT, BMP3M, PHOS3, MG3, CK3 #### [place] [address] [address] [place] #### VD25H #### [facility] [address] [place] [address] Basic Metabolic Panelon 07-30 Calcium mass conc 7.7 mg/dL Low 8.4-10.4 [facility] Comment on above: Performed By: #### H EMDF, PT, BMP3M, PHOS3, MG3, CK3 #### [place] [address] [address] [place] #### VD25H #### [facility] [address] [place] [address] Anion gap molar conc 7 Normal [facility] Comment on above: Performed By: #### H EMDF, PT, BMP3M, PHOS3, MG3, CK3 #### [place] [address] [address] [place] #### VD25H #### [facility] [address] [place] [address] CO2 molar conc 25 mmol/L Normal 22-30 [facility] Comment on above: Performed By: #### H EMDF, PT, BMP3M, PHOS3, MG3, CK3 #### [address] #### VD25H #### [facility] [address] [place] [address] Creatinine mass conc 0.59 mg/dL Normal 0.52-1.25 [facility] Comment on above: Performed By: #### H EMDF, PT, BMP3M, PHOS3, MG3, CK3 #### [address] #### VD25H #### [place] [address] [place] [address] GFR/1.73 sq M predicted among blacks MDRD vol rate/area (S/P/Bld) mL/min/{1.73_m2} Normal >60 [facility] Comment on above: Performed By: #### H EMDF, PT, BMP3M, PHOS3, MG3, CK3 #### [address] #### VD25H #### [facility] [address] [place] [address] GFR/1.73 sq M predicted among non-blacks MDRD vol rate/area (S/P/Bld) mL/min/{1.73_m2} Normal >60 [facility] Comment on above: Result Comment: Sour ce- MDRD equation with creatinine calibration to IDMS(NKDEP) eGFR not recommended for drug dose adjustment Performed By: #### H EMDF, PT, BMP3M, PHOS3, MG3, CK3 #### [address] #### VD25H #### [place] [address] [place] [address] Glucose mass conc 116 mg/dL High 70-100 [facility] Comment on above: Performed By: #### H EMDF, PT, BMP3M, PHOS3, MG3, CK3 #### [facility] [address] [place] #### VD25H #### [facility] [address] [place] [address] Urea nitrogen mass conc 12 mg/dL Normal 7-20 [facility] Comment on above: Performed By: #### H EMDF, PT, BMP3M, PHOS3, MG3, CK3 #### [place] [address] [address] [place] #### VD25H #### [facility] [address] [place] [address] Potassium molar conc 3.2 mmol/L Low 3.5-5.1 [facility] Comment on above: Performed By: #### H EMDF, PT, BMP3M, PHOS3, MG3, CK3 #### [place] [address] [address] [facility], [place] #### VD25H #### [facility] [address] [place] [address] Sodium molar conc 138 mmol/L Normal 135-145 [facility] Comment on above: Performed By: #### H EMDF, PT, BMP3M, PHOS3, MG3, CK3 #### [place] [address] [address] [place], [place] #### VD25H #### [facility] [address] [place] [address] Chloride molar conc 106 mmol/L Normal 98-107 [facility] Comment on above: Performed By: #### H EMDF, PT, BMP3M, PHOS3, MG3, CK3 #### [place] [address] [address] [address] [facility], [place] #### VD25H #### [facility] [address] [place] [address] CR Chest Portableon 08-18-19 19 CR Chest Portable Patient Name: KATHYA HOOPER Diagnostic Radiology Exam Date/Time 08/17/2018 17:54:46 EDT Exam CR Chest Portable Ordering Physician SALO DAVIS Accession Number [id number] CPT4 Codes 87555 () Reason For Exam line placement Report [...] LAURA Transcribed Date and Time: 08/17/2018 6:05 [facility] CR Chest Portable Patient Name: KATHYA HOOPER Diagnostic Radiology Exam Date/Time 08/17/2018 06:11:03 EDT Exam CR Chest Portable Ordering Physician ETIENNE VELÁSQUEZ TIMOTHY P Accession Number [id number] CPT4 Codes 39372 () Reason For Exam follow left pleural [...] Transcribed Date and Time: 08/17/2018 7:16 Normal [facility] Ferritinon 08-17-2018 Ferritin mass conc 1100 ng/mL High 18-464 [facility] Comment on above: Performed By: #### H EMDF, PT, BMP3M, PHOS3, MG3, CK3 #### [facility] [address] [place], [place] #### VD25H #### [facility] [address] [place] [address] Folateon 08-17-2018 Folate 15.1 ng/mL Normal 2.8-20.0 [facility] Comment on above: Performed By: #### H EMDF, PT, BMP3M, PHOS3, MG3, CK3 #### [facility] [address] [place], [place] #### VD25H #### [facility] [address] [place] [address] Glucose,Bedsideon 08-17-2018 Glucose mass conc 133 mg/dL High 70-100 [facility] Comment on above: Result Comment: Test performed by glucose meter. Results may be 10%-15% lower than serum/plasma values. (CLIA ID [id number]) Performed By: #### H EMDF, PT, BMP3M, PHOS3, MG3, CK3 #### [facility] [address], [place] #### VD25H #### [facility] [address] [place] [address] Hemoglobin A1Con 08-17-2018 Hemoglobin A1c/Hemoglobin.total mass fraction (Bld) 117 mg/dL Normal [facility] Comment on above: Performed By: #### H EMDF, PT, BMP3M, PHOS3, MG3, CK3 #### [facility] [address] [place], [place] #### VD25H #### [address] [place] [address] Hemoglobin A1c/Hemoglobin.total mass fraction (Bld) 5.7 % Normal 4.0-5.7 [facility] Comment on above: Result Comment: --Hg bA1C levels may not be accurate in patients who have renal disease, received recent blood transfusions, are anemic, or who have dyshemoglobinemia. Performed By: #### H EMDF, PT, BMP3M, PHOS3, MG3, CK3 #### [address] #### VD25H #### [address] [place] [address] Hemogram w/ Autodiffon 08-17 Erythrocyte distribution width Ratio (RBC) 14.3 % Normal 11.5-14.5 [facility] Comment on above: Performed By: #### H EMDF, PT, BMP3M, PHOS3, MG3, CK3 #### [address] #### VD25H #### [address] [place] [address] Hematocrit Volume Fraction (Bld) 29.1 % Low 40.0-52.0 [facility] Comment on above: Performed By: #### H EMDF, PT, BMP3M, PHOS3, MG3, CK3 #### [address] #### VD25H #### [address] [facility] [place] [address] Hemoglobin mass conc (Bld) 9.8 g/dL Low 13.0-18.0 [facility] Comment on above: Performed By: #### H EMDF, PT, BMP3M, PHOS3, MG3, CK3 #### [address] #### VD25H #### [address] [facility] [place] [address] MCH Entitic mass (RBC) 28.4 pg Normal 26.0-34.0 [facility] Comment on above: Performed By: #### H EMDF, PT, BMP3M, PHOS3, MG3, CK3 #### [place] [place] [address] [address] [place], [place] #### VD25H #### [facility] [address] [place] [address] MCHC mass conc (RBC) 33.5 % Normal 32.0-36.0 [facility] Comment on above: Performed By: #### H EMDF, PT, BMP3M, PHOS3, MG3, CK3 #### [address] #### VD25H #### [facility] [address] [place] [address] MCV Entitic volume (RBC) 84.7 fL Normal 80.0-98.0 [facility] Comment on above: Performed By: #### H EMDF, PT, BMP3M, PHOS3, MG3, CK3 #### [address] #### VD25H #### [facility] [address] [place] [address] Platelet mean volume Entitic volume (Bld) 8.1 fL Normal 7.4-10.4 [facility] Comment on above: Performed By: #### H EMDF, PT, BMP3M, PHOS3, MG3, CK3 #### [address] [place], [place] #### VD25H #### [facility] [address] [place] [address] Platelets #/vol (Bld) 281 10*3/uL Normal 140-440 [facility] Comment on above: Performed By: #### H EMDF, PT, BMP3M, PHOS3, MG3, CK3 #### [address] #### VD25H #### [facility] [address] [place] [address] RBC #/vol (Bld) 3.44 10*6/uL Low 4.40-5.90 [facility] Comment on above: Performed By: #### H EMDF, PT, BMP3M, PHOS3, MG3, CK3 #### [facility] [address], [place] #### VD25H #### [facility] [address] [place] [address] WBC #/vol (Bld) 8.3 10*3/uL Normal 3.6-10.7 [facility] Comment on above: Performed By: #### H EMDF, PT, BMP3M, PHOS3, MG3, CK3 #### [facility] [address] [place], [place] #### VD25H #### [facility] [address] [place] [address] Hep B Surface Abon 9 Hep B Surface Ab < 8.0 Normal [facility] Comment on above: Result Comment: Inte rpretation: <8.0 Non-Reactive 8.0-11.9 Equivocal >= 12.0 Ab Detected Performed By: #### H EMDF, PT, BMP3M, PHOS3, MG3, CK3 #### [facility] [address] [place], [place] #### VD25H #### [facility] [address] [place] [address] Hep B Surface Agon 9 Hep B Surface Ag NOT DETECTED Normal Not-Detected [facility] Comment on above: Performed By: #### H EMDF, PT, BMP3M, PHOS3, MG3, CK3 #### [facility] [address] [place], [place] #### VD25H #### [facility] [address] [place] [address] Hep C Antibodyon 08-17-2018 Hep C Antibody NOT DETECTED Normal Not-Detected [facility] Comment on above: Result Comment: Bharti ents with DETECTED Hepatitis C Ab results should have a new specimen submitted for supplemental testing with a Hepatitis C Quantitative RNA assay (viral load), if clinically indicated. Performed By: #### H EMDF, PT, BMP3M, PHOS3, MG3, CK3 #### [facility] [address] [place], [place] #### VD25H #### [facility] [address] [place] [address] Hepatic Functionon ALP enzyme act/vol 116 U/L Normal 38-126 [facility] Comment on above: Performed By: #### H EMDF, PT, BMP3M, PHOS3, MG3, CK3 #### [place] [address] [address] [place], [place] #### VD25H #### [facility] [address] [place] [address] ALT enzyme act/vol 370 U/L High 13-69 [facility] Comment on above: Performed By: #### H EMDF, PT, BMP3M, PHOS3, MG3, CK3 #### [facility] [address] [facility], [place] #### VD25H #### [facility] [address] [place] [address] AST enzyme act/vol 150 U/L High 15-46 [facility] Comment on above: Performed By: #### H EMDF, PT, BMP3M, PHOS3, MG3, CK3 #### [facility] [address] [place], [place] #### VD25H #### [facility] [address] [place] [address] Bilirubin mass conc 0.7 mg/dL Normal 0.2-1.3 [facility] Comment on above: Performed By: #### H EMDF, PT, BMP3M, PHOS3, MG3, CK3 #### [facility] [address] [facility] #### VD25H #### [facility] [address] [place] [address] Bilirubin.direct mass conc 0.0 mg/dL Normal 0.0-0.3 [facility] Comment on above: Performed By: #### H EMDF, PT, BMP3M, PHOS3, MG3, CK3 #### [place] [address] [address] [place], [place] #### VD25H #### [facility] [address] [place] [address] Protein mass conc 5.4 g/dL Low 6.3-8.2 [facility] Comment on above: Performed By: #### H EMDF, PT, BMP3M, PHOS3, MG3, CK3 #### [place] [place] [address] [address] [place], [place] #### VD25H #### [facility] [address] [place] [address] Albumin mass conc 2.5 g/dL Low 3.5-5.0 [facility] Comment on above: Performed By: #### H EMDF, PT, BMP3M, PHOS3, MG3, CK3 #### [place] [address] [address] [place] #### VD25H #### [facility] [address] [place] [address] Iron AND TIBCon 08-17-2018 Saturation 14 % Low 15-50 [facility] Comment on above: Performed By: #### H EMDF, PT, BMP3M, PHOS3, MG3, CK3 #### [place] [place] [address] [address] [place], [place] #### VD25H #### [facility] [address] [place] [address] Total Iron Binding Cap. 166 ug/dL Low 261-497 [facility] Comment on above: Performed By: #### H EMDF, PT, BMP3M, PHOS3, MG3, CK3 #### [place] [address] [address] [place], [place] #### VD25H #### [facility] [address] [place] [address] Iron, Total 23 ug/dL Low 49-181 [facility] Comment on above: Performed By: #### H EMDF, PT, BMP3M, PHOS3, MG3, CK3 #### [address] [place], [place] #### VD25H #### [facility] [address] [place] [address] Magnesiumon 08-17-2018 Magnesium mass conc 2.0 mg/dL Normal 1.6-2.3 [facility] Comment on above: Performed By: #### H EMDF, PT, BMP3M, PHOS3, MG3, CK3 #### [address] [place], [place] #### VD25H #### [facility] [address] [place] [address] Manual Diffon 08-17-2018 Abs Baso Cnt 0.1 10*3/uL Normal 0.0-0.2 [facility] Comment on above: Performed By: #### H EMDF, PT, BMP3M, PHOS3, MG3, CK3 #### [address] #### VD25H #### [facility] [address] [place] Abs Neutrophile Cnt 5.6 10*3/uL Normal 2.2-8.2 [facility] Comment on above: Performed By: #### H EMDF, PT, BMP3M, PHOS3, MG3, CK3 #### [address] #### VD25H #### [facility] [address] [place] [address] Anisocytosis Ql (Bld) Slight Normal [facility] Comment on above: Performed By: #### H EMDF, PT, BMP3M, PHOS3, MG3, CK3 #### [address] #### VD25H #### [facility] [address] [place] [address] Bands 9 % High 0-3 [facility] Comment on above: Performed By: #### H EMDF, PT, BMP3M, PHOS3, MG3, CK3 #### [facility] [address] [place] #### VD25H #### [facility] [address] [place] [address] Basophils/100 WBC (Bld) 1 % Normal 0-2 [facility] Comment on above: Performed By: #### H EMDF, PT, BMP3M, PHOS3, MG3, CK3 #### [facility] [address] [place] #### VD25H #### [facility] [address] [place] [address] Eosinophils #/vol (Bld) 0.2 10*3/uL Normal 0.0-0.5 [facility] Comment on above: Performed By: #### H EMDF, PT, BMP3M, PHOS3, MG3, CK3 #### [place] [place] [address] [address] [place] #### VD25H #### [facility] [address] [place] [address] Eosinophils/100 WBC (Bld) 3 % Normal 1-6 [facility] Comment on above: Performed By: #### H EMDF, PT, BMP3M, PHOS3, MG3, CK3 #### [facility] [address] [place], [place] #### VD25H #### [facility] [address] [place] [address] Lymphocytes #/vol (Bld) 1.5 10*3/uL Normal 1.1-4.5 [facility] Comment on above: Performed By: #### H EMDF, PT, BMP3M, PHOS3, MG3, CK3 #### [facility] [address] [place], [place] #### VD25H #### [facility] [address] [place] [address] Lymphocytes/100 WBC (Bld) 18 % Low 20-40 [facility] Comment on above: Performed By: #### H EMDF, PT, BMP3M, PHOS3, MG3, CK3 #### [place] [place] [address] [address] [place] #### VD25H #### [facility] [address] [place] [address] Monocytes #/vol (Bld) 0.4 10*3/uL Normal 0.2-1.1 [facility] Comment on above: Performed By: #### H EMDF, PT, BMP3M, PHOS3, MG3, CK3 #### [place] [address] [address] [place] #### VD25H #### [facility] [address] [place] [address] Monocytes/100 WBC (Bld) 5 % Normal 2-10 [facility] Comment on above: Performed By: #### H EMDF, PT, BMP3M, PHOS3, MG3, CK3 #### [place] [address] [address] [place] #### VD25H #### [facility] [address] [place] [address] Myelocytes 5 % Abnormal <1 [facility] Comment on above: Performed By: #### H EMDF, PT, BMP3M, PHOS3, MG3, CK3 #### [place] [address] [place] #### VD25H #### [facility] [address] [place] [address] Polychromasia Slight Normal [facility] Comment on above: Performed By: #### H EMDF, PT, BMP3M, PHOS3, MG3, CK3 #### [place] [address] [address] [place] #### VD25H #### [facility] [address] [place] [address] RBC morphology finding Nom (Bld) ABNORMAL Normal [facility] Comment on above: Performed By: #### H EMDF, PT, BMP3M, PHOS3, MG3, CK3 #### [place] [address] [address] [place] #### VD25H #### [facility] [address] [place] [address] Seg Neutrophils 59 % Normal 40-80 [facility] Comment on above: Performed By: #### H EMDF, PT, BMP3M, PHOS3, MG3, CK3 #### [facility] [address] [place] #### VD25H #### [facility] [address] [place] [address] Toxic Granulation Slight Normal [facility] Comment on above: Performed By: #### H EMDF, PT, BMP3M, PHOS3, MG3, CK3 #### [address] [place], [place] #### VD25H #### [facility] [address] [place] [address] Cells counted 100 Normal [facility] Comment on above: Performed By: #### H EMDF, PT, BMP3M, PHOS3, MG3, CK3 #### [address] [place] #### VD25H #### [facility] [address] [place] [address] Phosphoruson 08-17-2018 Phosphate mass conc 3.9 mg/dL Normal 2.5-4.5 [facility] Comment on above: Performed By: #### H EMDF, PT, BMP3M, PHOS3, MG3, CK3 #### [place] [address] [address] [place] #### VD25H #### [facility] [address] [place] [address] Triglycerideon 08-17-2018 Triglyceride mass conc 104 mg/dL Normal <150 [facility] Comment on above: Performed By: #### H EMDF, PT, BMP3M, PHOS3, MG3, CK3 #### [place] [address] [address] [place] #### VD25H #### [facility] [address] [place] [address] Vitamin B12on 08-17-2018 Cobalamin (Vitamin B12) mass conc 615 pg/mL Normal 239-931 [facility] Comment on above: Performed By: #### H EMDF, PT, BMP3M, PHOS3, MG3, CK3 #### [facility] [address] [place] [address] #### VD25H #### [facility] [address] [place] [address] Albumin, Serumon 08-16-2018 Albumin mass conc 2.6 g/dL Low 3.5-5.0 [facility] [employer] [facility] Comment on above: Performed By: #### H EMDF, PT, BMP3M, PHOS3, MG3, CK3 #### [facility] [address] [place] [address] #### VD25H #### [facility] [address] [place] [address] CR Abdomen APon 08-16-2018 CR Abdomen AP Patient Name: KATHYA HOOPER Diagnostic Radiology Exam Date/Time 08/16/2018 10:17:24 EDT Exam CR Abdomen AP Ordering Physician [id number] ANNA Accession Number [id number] CPT4 Codes 00176 () Reason For Exam dobhoff placement Report [...] Transcribed Date and Time: 08/16/2018 12:33 Normal [facility] CR Chest Portableon 08-17-19 19 CR Chest Portable Patient Name: KATHYA HOOPER Diagnostic Radiology Exam Date/Time 08/16/2018 10:17:24 EDT Exam CR Chest Portable Ordering Physician [id number] ESPINOSA Accession Number [id number] CPT4 Codes 00400 () Reason For Exam dyspnea Report PORTABLE [...] Transcribed Date and Time: 08/16/2018 12:31 Normal [facility] Comp Panel with Mg Reflexon 08-16-2018 Calcium mass conc 7.8 mg/dL Low 8.4-10.[address] [email or web address] Comment on above: Performed By: #### H EMDF, PT, BMP3M, PHOS3, MG3, CK3 #### [email or web address] [address] [place] [address] #### VD25H #### [email or web address] [address] [place] [address] Glucose mass conc 114 mg/dL High 70-[address] [facility] Comment on above: Performed By: #### H EMDF, PT, BMP3M, PHOS3, MG3, CK3 #### [facility] [address] [place], [place] #### VD25H #### [facility] [address] [place] [address] ALP enzyme act/vol 114 U/L Normal 38-126 [facility] Comment on above: Performed By: #### H EMDF, PT, BMP3M, PHOS3, MG3, CK3 #### [facility] [address] [facility] #### VD25H #### [facility] [address] [place] [address] ALT enzyme act/vol 539 U/L High 13-69 [facility] Comment on above: Performed By: #### H EMDF, PT, BMP3M, PHOS3, MG3, CK3 #### [place] [address] [address] [place] #### VD25H #### [facility] [address] [place] [address] Anion gap molar conc 4 Normal [facility] Comment on above: Performed By: #### H EMDF, PT, BMP3M, PHOS3, MG3, CK3 #### [facility] [address] [place] #### VD25H #### [facility] [address] [place] [address] AST enzyme act/vol 460 U/L High 15-46 [facility] Comment on above: Performed By: #### H EMDF, PT, BMP3M, PHOS3, MG3, CK3 #### [facility] [address] [place] #### VD25H #### [facility] [address] [place] [address] Bilirubin mass conc 0.7 mg/dL Normal 0.2-1.3 [facility] Comment on above: Performed By: #### H EMDF, PT, BMP3M, PHOS3, MG3, CK3 #### [address] #### VD25H #### [facility] [address] [place] [address] CO2 molar conc 25 mmol/L Normal 22-30 [facility] Comment on above: Performed By: #### H EMDF, PT, BMP3M, PHOS3, MG3, CK3 #### [address] #### VD25H #### [facility] [address] [place] [address] Creatinine mass conc 0.71 mg/dL Normal 0.52-1.25 [facility] Comment on above: Performed By: #### H EMDF, PT, BMP3M, PHOS3, MG3, CK3 #### [address] #### VD25H #### [facility] [address] [facility] [place] [address] GFR/1.73 sq M predicted among blacks MDRD vol rate/area (S/P/Bld) mL/min/{1.73_m2} Normal >60 [facility] Comment on above: Performed By: #### H EMDF, PT, BMP3M, PHOS3, MG3, CK3 #### [address] #### VD25H #### [facility] [address] [place] [address] GFR/1.73 sq M predicted among non-blacks MDRD vol rate/area (S/P/Bld) mL/min/{1.73_m2} Normal >60 [facility] Comment on above: Result Comment: Sour ce- MDRD equation with creatinine calibration to IDMS(NKDEP) eGFR not recommended for drug dose adjustment Performed By: #### H EMDF, PT, BMP3M, PHOS3, MG3, CK3 #### [address] #### VD25H #### [facility] [address] [place] [address] Protein mass conc 5.1 g/dL Low 6.3-8.2 [facility] Comment on above: Performed By: #### H EMDF, PT, BMP3M, PHOS3, MG3, CK3 #### [facility] [address] [place] #### VD25H #### [facility] [address] [place] [address] Urea nitrogen mass conc 22 mg/dL High 7-20 [facility] Comment on above: Performed By: #### H EMDF, PT, BMP3M, PHOS3, MG3, CK3 #### [place] [address] [address] [place] #### VD25H #### [facility] [address] [place] [address] Chloride molar conc 102 mmol/L Normal 98-107 [facility] Comment on above: Performed By: #### H EMDF, PT, BMP3M, PHOS3, MG3, CK3 #### [address] [address] [address] [place] #### VD25H #### [facility] [address] [place] [address] Potassium molar conc 3.1 mmol/L Low 3.5-5.1 [facility] Comment on above: Performed By: #### H EMDF, PT, BMP3M, PHOS3, MG3, CK3 #### [facility] [address] [place] #### VD25H #### [facility] [address] [place] [address] Sodium molar conc 131 mmol/L Low 135-145 [facility] Comment on above: Performed By: #### H EMDF, PT, BMP3M, PHOS3, MG3, CK3 #### [place] [address] [address] [place] #### VD25H #### [facility] [address] [place] [address] Albumin mass conc 2.4 g/dL Low 3.5-5.[address] [facility] Comment on above: Performed By: #### H EMDF, PT, BMP3M, PHOS3, MG3, CK3 #### [facility] [address] [place] [address] #### VD25H #### [facility] [address] [place] [address] Glucose,Bedsideon 08-16-2018 Glucose mass conc 100 mg/dL Normal 70-[address] [facility] Comment on above: Result Comment: Test performed by glucose meter. Results may be 10%-15% lower than serum/plasma values. (CLIA ID [id number]) Performed By: #### H EMDF, PT, BMP3M, PHOS3, MG3, CK3 #### [facility] [address] [place] [address] #### VD25H #### [employer] [address] [place] [address] Glucose mass conc 98 mg/dL Normal 70-[address] [facility] Comment on above: Result Comment: Test performed by glucose meter. Results may be 10%-15% lower than serum/plasma values. (CLIA ID [id number]) Performed By: #### H EMDF, PT, BMP3M, PHOS3, MG3, CK3 #### [facility] [address] [place] [id number] #### VD25H #### [facility] [address] [facility] [place] [address] Glucose mass conc 110 mg/dL High 70-[address] [facility] Comment on above: Result Comment: Test performed by glucose meter. Results may be 10%-15% lower than serum/plasma values. (CLIA ID [id number]) Performed By: #### H EMDF, PT, BMP3M, PHOS3, MG3, CK3 #### [facility] [address] [place] [phone] #### VD25H #### [employer] [facility] [address] [place] [address] Glucose mass conc 113 mg/dL High 70-100 [facility] Comment on above: Result Comment: Test performed by glucose meter. Results may be 10%-15% lower than serum/plasma values. (CLIA ID [id number]) Performed By: #### H EMDF, PT, BMP3M, PHOS3, MG3, CK3 #### [address] #### VD25H #### [facility] [address] [place] [address] Glucose mass conc 126 mg/dL High 70-100 [facility] Comment on above: Result Comment: Test performed by glucose meter. Results may be 10%-15% lower than serum/plasma values. (CLIA ID [id number]) Performed By: #### H EMDF, PT, BMP3M, PHOS3, MG3, CK3 #### [address] #### VD25H #### [facility] [address] [place] [address] Hemogram w/ Autodiffon 08-16 Abs Baso Cnt 0.0 10*3/uL Normal 0.0-0.2 [facility] Comment on above: Performed By: #### H EMDF, PT, BMP3M, PHOS3, MG3, CK3 #### [address] #### VD25H #### [facility] [address] [place] [address] Abs Neutrophile Cnt 7.7 10*3/uL High 1.8-7.0 [facility] Comment on above: Performed By: #### H EMDF, PT, BMP3M, PHOS3, MG3, CK3 #### [address] #### VD25H #### [facility] [address] [place] [address] Basophils/100 WBC (Bld) 0.5 % Normal 0.0-2.0 [facility] Comment on above: Performed By: #### H EMDF, PT, BMP3M, PHOS3, MG3, CK3 #### [address] [place], [place] #### VD25H #### [facility] [address] [place] [address] Eosinophils #/vol (Bld) 0.1 10*3/uL Normal 0.0-0.5 [facility] Comment on above: Performed By: #### H EMDF, PT, BMP3M, PHOS3, MG3, CK3 #### [address] #### VD25H #### [facility] [address] [place] [address] Eosinophils/100 WBC (Bld) 1.5 % Normal 1.0-6.0 [facility] Comment on above: Performed By: #### H EMDF, PT, BMP3M, PHOS3, MG3, CK3 #### [address] #### VD25H #### [facility] [address] [place] [address] Erythrocyte distribution width Ratio (RBC) 14.4 % Normal 11.5-14.5 [facility] Comment on above: Performed By: #### H EMDF, PT, BMP3M, PHOS3, MG3, CK3 #### [address] #### VD25H #### [facility] [address] [place] [address] Granulocytes/100 WBC (Bld) 79.7 % Normal 40.0-80.0 [facility] Comment on above: Performed By: #### H EMDF, PT, BMP3M, PHOS3, MG3, CK3 #### [address] #### VD25H #### [facility] [address] [place] [place] [address] Hematocrit Volume Fraction (Bld) 27.1 % Low 40.0-52.0 [facility] Comment on above: Performed By: #### H EMDF, PT, BMP3M, PHOS3, MG3, CK3 #### [facility] [address] [place], [place] #### VD25H #### [facility] [address] [place] [address] Hemoglobin mass conc (Bld) 9.2 g/dL Low 13.0-18.0 [facility] Comment on above: Performed By: #### H EMDF, PT, BMP3M, PHOS3, MG3, CK3 #### [address] #### VD25H #### [facility] [address] [place] [address] Lymphocytes #/vol (Bld) 1.0 10*3/uL Normal 1.0-4.3 [facility] Comment on above: Performed By: #### H EMDF, PT, BMP3M, PHOS3, MG3, CK3 #### [address] #### VD25H #### [facility] [address] [place] [address] Lymphocytes/100 WBC (Bld) 10.0 % Low 20.0-40.0 [facility] Comment on above: Performed By: #### H EMDF, PT, BMP3M, PHOS3, MG3, CK3 #### [address] [place], [place] #### VD25H #### [facility] [address] [place] [address] MCH Entitic mass (RBC) 28.5 pg Normal 26.0-34.0 [facility] Comment on above: Performed By: #### H EMDF, PT, BMP3M, PHOS3, MG3, CK3 #### [address] #### VD25H #### [facility] [address] [place] [address] MCHC mass conc (RBC) 33.8 % Normal 32.0-36.0 [facility] Comment on above: Performed By: #### H EMDF, PT, BMP3M, PHOS3, MG3, CK3 #### [facility] [address] [place], [place] #### VD25H #### [facility] [address] [place] [address] MCV Entitic volume (RBC) 84.4 fL Normal 80.0-98.0 [facility] Comment on above: Performed By: #### H EMDF, PT, BMP3M, PHOS3, MG3, CK3 #### [address] #### VD25H #### [facility] [address] [place] [address] Monocytes #/vol (Bld) 0.8 10*3/uL Normal 0.0-0.8 [facility] Comment on above: Performed By: #### H EMDF, PT, BMP3M, PHOS3, MG3, CK3 #### [address] #### VD25H #### [facility] [address] [place] [address] Monocytes/100 WBC (Bld) 8.3 % Normal 2.0-10.0 [facility] Comment on above: Performed By: #### H EMDF, PT, BMP3M, PHOS3, MG3, CK3 #### [address] #### VD25H #### [facility] [address] [place] [address] Platelet mean volume Entitic volume (Bld) 8.4 fL Normal 7.4-10.4 [facility] Comment on above: Performed By: #### H EMDF, PT, BMP3M, PHOS3, MG3, CK3 #### [address] #### VD25H #### [facility] [address] [place] [address] Platelets #/vol (Bld) 245 10*3/uL Normal 140-440 [facility] Comment on above: Performed By: #### H EMDF, PT, BMP3M, PHOS3, MG3, CK3 #### [place] [address] [place], [place] #### VD25H #### [facility] [address] [place] [address] RBC #/vol (Bld) 3.21 10*6/uL Low 4.40-5.90 [facility] Comment on above: Performed By: #### H EMDF, PT, BMP3M, PHOS3, MG3, CK3 #### [address] #### VD25H #### [place] [address] [place] [address] WBC #/vol (Bld) 9.7 10*3/uL Normal 3.6-10.7 [facility] Comment on above: Performed By: #### H EMDF, PT, BMP3M, PHOS3, MG3, CK3 #### [address] #### VD25H #### [address] [place] [address] Magnesiumon 08-16-2018 Magnesium mass conc 2.1 mg/dL Normal 1.6-2.3 [facility] Comment on above: Performed By: #### H EMDF, PT, BMP3M, PHOS3, MG3, CK3 #### [address] #### VD25H #### [place] [address] [place] [address] Phosphoruson 08-16-2018 Phosphate mass conc 4.4 mg/dL Normal 2.5-4.5 [facility] Comment on above: Performed By: #### H EMDF, PT, BMP3M, PHOS3, MG3, CK3 #### [facility] [address] [place] #### VD25H #### [facility] [address] [place] [address] Potassiumon 08-16-2018 Potassium molar conc 3.5 mmol/L Normal 3.5-5.1 [facility] Comment on above: Performed By: #### H EMDF, PT, BMP3M, PHOS3, MG3, CK3 #### [address] [place], [place] #### VD25H #### [facility] [address] [place] [address] Procalcitoninon 08-16-2018 Protein mass conc 3.10 ng/mL Abnormal <0.10 [facility] Comment on above: Performed By: #### H EMDF, PT, BMP3M, PHOS3, MG3, CK3 #### [address] #### VD25H #### [facility] [address] [place] [address] Prothrombin Timeon 9 INR Coag RelTime (PPP) 1.1 Normal 0.9-1.1 [facility] Comment on above: Result Comment: Yefri [...] PT, BMP3M, PHOS3, MG3, CK3 #### [address] [place], [place] #### VD25H #### [facility] [address] [place] [address] Prothrombin time (PT) Coag time (PPP) 11.8 s Normal 9.0-12.0 [facility] Comment on above: Result Comment: . Performed By: #### H EMDF, PT, BMP3M, PHOS3, MG3, CK3 #### [facility] [address] [facility] [place] [address] #### VD25H #### [facility] [address] [place] [address] US Abdomen Limitedon 019 US Abdomen Limited Patient Name: KATHYA HOOPER Ultrasound Exam Date/Time 08/16/2018 19:12:00 EDT Exam US Abdomen Limited Ordering Physician [id number] ESPINOSA Accession Number [id number] CPT4 Codes 08647 () Reason For Exam elevated transaminases Report [...] Transcribed Date and Time: 08/16/2018 7:26 Normal [facility] Glucose,Bedsideon 08-15-2018 Glucose mass conc 98 mg/dL Normal 70-100 [facility] Comment on above: Result Comment: Test performed by glucose meter. Results may be 10%-15% lower than serum/plasma values. (CLIA ID [id number]) Performed By: #### H EMDF, PT, BMP3M, PHOS3, MG3, CK3 #### [place] [address] [place], [place] #### VD25H #### [facility] [address] [place] [address] Procalcitoninon 08-15-2018 Interpretation See Below Normal [facility] Comment on above: Result Comment: PCT <0.50 = Low risk of severe sepsis and/or septic shock. PCT >2.00 = High risk of severe sepsis and/or septic shock. Performed By: #### H EMDF, PT, BMP3M, PHOS3, MG3, CK3 #### [address] #### VD25H #### [place] [address] [place] [address] CULTURE FUNGUSon 08-13-2018 CULTURE FUNGUS CULTURE FUNGUS --> Status: F No fungus isolated after 21 days. Normal [facility] Comment on above: Order Comment: Speci men Source Comment:Body Fluid Performed By: #### H EMDF, PT, BMP3M, PHOS3, MG3, CK3 #### [address] #### VD25H #### [facility] [address] [place] [address] Hemogram w/ Autodiffon 08-01 Abs Baso Cnt 0.2 10*3/uL Normal 0.0-0.2 [facility] Comment on above: Performed By: #### H EMDF, PT, BMP3M, PHOS3, MG3, CK3 #### [address] #### VD25H #### [facility] [address] [place], [place] Abs Neutrophile Cnt 14.3 10*3/uL High 1.8-7.0 [facility] Comment on above: Performed By: #### H EMDF, PT, BMP3M, PHOS3, MG3, CK3 #### [facility] [address] [place] #### VD25H #### [facility] [address] [place] [address] Basophils/100 WBC (Bld) 1.0 % Normal 0.0-2.0 [facility] Comment on above: Performed By: #### H EMDF, PT, BMP3M, PHOS3, MG3, CK3 #### [place] [address] [address] [place], [place] #### VD25H #### [facility] [address] [place] [address] Eosinophils #/vol (Bld) 0.4 10*3/uL Normal 0.0-0.5 [facility] Comment on above: Performed By: #### H EMDF, PT, BMP3M, PHOS3, MG3, CK3 #### [address] [place] #### VD25H #### [facility] [address] [place] [address] Eosinophils/100 WBC (Bld) 2.3 % Normal 1.0-6.0 [facility] Comment on above: Performed By: #### H EMDF, PT, BMP3M, PHOS3, MG3, CK3 #### [address] #### VD25H #### [facility] [address] [place] [address] Erythrocyte distribution width Ratio (RBC) 13.7 % Normal 11.5-14.5 [facility] Comment on above: Performed By: #### H EMDF, PT, BMP3M, PHOS3, MG3, CK3 #### [address] #### VD25H #### [facility] [address] [place] [address] Granulocytes/100 WBC (Bld) 82.1 % High 40.0-80.0 [facility] Comment on above: Performed By: #### H EMDF, PT, BMP3M, PHOS3, MG3, CK3 #### [facility] [address] [place] #### VD25H #### [facility] [address] [place] [address] Hematocrit Volume Fraction (Bld) 31.2 % Low 40.0-52.0 [facility] Comment on above: Performed By: #### H EMDF, PT, BMP3M, PHOS3, MG3, CK3 #### [address] #### VD25H #### [facility] [address] [place] [address] Hemoglobin mass conc (Bld) 10.5 g/dL Low 13.0-18.0 [facility] Comment on above: Performed By: #### H EMDF, PT, BMP3M, PHOS3, MG3, CK3 #### [address] #### VD25H #### [facility] [address] [place] [address] Lymphocytes #/vol (Bld) 1.6 10*3/uL Normal 1.0-4.3 [facility] Comment on above: Performed By: #### H EMDF, PT, BMP3M, PHOS3, MG3, CK3 #### [address] #### VD25H #### [facility] [address] [place] [address] Lymphocytes/100 WBC (Bld) 9.1 % Low 20.0-40.0 [facility] Comment on above: Performed By: #### H EMDF, PT, BMP3M, PHOS3, MG3, CK3 #### [address] #### VD25H #### [facility] [address] [place] [address] MCH Entitic mass (RBC) 28.9 pg Normal 26.0-34.0 [facility] Comment on above: Performed By: #### H EMDF, PT, BMP3M, PHOS3, MG3, CK3 #### [facility] [address] [place] #### VD25H #### [facility] [address] [place] [address] MCHC mass conc (RBC) 33.7 % Normal 32.0-36.0 [facility] Comment on above: Performed By: #### H EMDF, PT, BMP3M, PHOS3, MG3, CK3 #### [place] [address] [address] [place] #### VD25H #### [facility] [address] [place] [address] MCV Entitic volume (RBC) 85.5 fL Normal 80.0-98.0 [facility] Comment on above: Performed By: #### H EMDF, PT, BMP3M, PHOS3, MG3, CK3 #### [address] #### VD25H #### [facility] [address] [place] [address] Monocytes #/vol (Bld) 1.0 10*3/uL High 0.0-0.8 [facility] Comment on above: Performed By: #### H EMDF, PT, BMP3M, PHOS3, MG3, CK3 #### [place] [address] [address] [place] #### VD25H #### [facility] [address] [place] [address] Monocytes/100 WBC (Bld) 5.5 % Normal 2.0-10.0 [facility] Comment on above: Performed By: #### H EMDF, PT, BMP3M, PHOS3, MG3, CK3 #### [address] #### VD25H #### [facility] [address] [place] [address] Platelet mean volume Entitic volume (Bld) 8.0 fL Normal 7.4-10.[address] [facility] Comment on above: Performed By: #### H EMDF, PT, BMP3M, PHOS3, MG3, CK3 #### [address] #### VD25H #### [facility] [address] [place] [address] Platelets #/vol (Bld) 425 10*3/uL Normal 140-440 [facility] Comment on above: Performed By: #### H EMDF, PT, BMP3M, PHOS3, MG3, CK3 #### [address] #### VD25H #### [place] [address] [place] [address] RBC #/vol (Bld) 3.65 10*6/uL Low 4.40-5.90 [facility] Comment on above: Performed By: #### H EMDF, PT, BMP3M, PHOS3, MG3, CK3 #### [address] #### VD25H #### [place] [address] [place] [address] WBC #/vol (Bld) 17.4 10*3/uL High 3.6-10.[address] [facility] Comment on above: Performed By: #### H EMDF, PT, BMP3M, PHOS3, MG3, CK3 #### [address] #### VD25H #### [place] [address] [place] [address] Basic Metabolic Panelon 04-0 Calcium mass conc 8.3 mg/dL Low 8.4-10.[address] [facility] Comment on above: Performed By: #### H EMDF, PT, BMP3M, PHOS3, MG3, CK3 #### [place] [address] [place] [address] #### VD25H #### [facility] [address] [place] [address] Glucose mass conc 114 mg/dL High 70-100 [facility] Comment on above: Performed By: #### H EMDF, PT, BMP3M, PHOS3, MG3, CK3 #### [facility] [address] [facility] [place] [address] #### VD25H #### [facility] [address] [place] [address] Anion gap molar conc 10 Normal [facility] Comment on above: Performed By: #### H EMDF, PT, BMP3M, PHOS3, MG3, CK3 #### [address] [place] [address] #### VD25H #### [facility] [address] [place] [address] CO2 molar conc 34 mmol/L High 22-30 [facility] Comment on above: Performed By: #### H EMDF, PT, BMP3M, PHOS3, MG3, CK3 #### [place] [address] [facility] [place] [address] #### VD25H #### [facility] [address] [place] [address] Creatinine mass conc 0.52 mg/dL Normal 0.52-1.25 [facility] Comment on above: Performed By: #### H EMDF, PT, BMP3M, PHOS3, MG3, CK3 #### [place] [address] [place] [address] #### VD25H #### [facility] [address] [place] [address] GFR/1.73 sq M predicted among blacks MDRD vol rate/area (S/P/Bld) mL/min/{1.73_m2} Normal >60 [facility] Comment on above: Performed By: #### H EMDF, PT, BMP3M, PHOS3, MG3, CK3 #### [place] [address] [address] [facility], [place] #### VD25H #### [facility] [address] [place] [address] GFR/1.73 sq M predicted among non-blacks MDRD vol rate/area (S/P/Bld) mL/min/{1.73_m2} Normal >60 [facility] Comment on above: Result Comment: Sour ce- MDRD equation with creatinine calibration to IDMS(NKDEP) eGFR not recommended for drug dose adjustment Performed By: #### H EMDF, PT, BMP3M, PHOS3, MG3, CK3 #### [place] [address] [address] [facility], [place] #### VD25H #### [facility] [address] [place] [address] Urea nitrogen mass conc 23 mg/dL High 7-20 [facility] Comment on above: Performed By: #### H EMDF, PT, BMP3M, PHOS3, MG3, CK3 #### [place] [address] [address] [facility] #### VD25H #### [facility] [address] [place] [address] Chloride molar conc 95 mmol/L Low 98-107 [facility] Comment on above: Performed By: #### H EMDF, PT, BMP3M, PHOS3, MG3, CK3 #### [facility] [address] [facility] #### VD25H #### [facility] [address] [place] [address] Potassium molar conc 3.7 mmol/L Normal 3.5-5.1 [facility] Comment on above: Performed By: #### H EMDF, PT, BMP3M, PHOS3, MG3, CK3 #### [facility] [address] [facility] [place] #### VD25H #### [facility] [address] [place] [address] Sodium molar conc 139 mmol/L Normal 135-145 [facility] Comment on above: Performed By: #### H EMDF, PT, BMP3M, PHOS3, MG3, CK3 #### [address] #### VD25H #### [facility] [address] [place] [address] Hemogram w/ Autodiffon 07-31 Abs Baso Cnt 0.2 10*3/uL Normal 0.0-0.2 [facility] Comment on above: Performed By: #### H EMDF, PT, BMP3M, PHOS3, MG3, CK3 #### [address] #### VD25H #### [place] [address] [facility] [place] [address] Abs Neutrophile Cnt 13.4 10*3/uL High 1.8-7.0 [facility] Comment on above: Performed By: #### H EMDF, PT, BMP3M, PHOS3, MG3, CK3 #### [address] #### VD25H #### [facility] [address] [facility] [place] [address] Basophils/100 WBC (Bld) 1.0 % Normal 0.0-2.0 [facility] Comment on above: Performed By: #### H EMDF, PT, BMP3M, PHOS3, MG3, CK3 #### [address] #### VD25H #### [facility] [address] [facility] [place] [address] Eosinophils #/vol (Bld) 0.5 10*3/uL Normal 0.0-0.5 [facility] Comment on above: Performed By: #### H EMDF, PT, BMP3M, PHOS3, MG3, CK3 #### [address] #### VD25H #### [facility] [address] [place] [address] Eosinophils/100 WBC (Bld) 3.1 % Normal 1.0-6.0 [facility] Comment on above: Performed By: #### H EMDF, PT, BMP3M, PHOS3, MG3, CK3 #### [facility] [address] [place] #### VD25H #### [facility] [address] [place] [address] Erythrocyte distribution width Ratio (RBC) 14.0 % Normal 11.5-14.5 [facility] Comment on above: Performed By: #### H EMDF, PT, BMP3M, PHOS3, MG3, CK3 #### [address] #### VD25H #### [facility] [address] [place] [address] Granulocytes/100 WBC (Bld) 80.6 % High 40.0-80.0 [facility] Comment on above: Performed By: #### H EMDF, PT, BMP3M, PHOS3, MG3, CK3 #### [address] #### VD25H #### [facility] [address] [place] [address] Hematocrit Volume Fraction (Bld) 32.3 % Low 40.0-52.0 [facility] Comment on above: Performed By: #### H EMDF, PT, BMP3M, PHOS3, MG3, CK3 #### [address] [place] #### VD25H #### [facility] [address] [place] [address] Hemoglobin mass conc (Bld) 10.8 g/dL Low 13.0-18.0 [facility] Comment on above: Performed By: #### H EMDF, PT, BMP3M, PHOS3, MG3, CK3 #### [address] #### VD25H #### [facility] [address] [place] [address] Lymphocytes #/vol (Bld) 1.6 10*3/uL Normal 1.0-4.3 [facility] Comment on above: Performed By: #### H EMDF, PT, BMP3M, PHOS3, MG3, CK3 #### [address] #### VD25H #### [facility] [address] [place] [address] Lymphocytes/100 WBC (Bld) 9.8 % Low 20.0-40.0 [facility] Comment on above: Performed By: #### H EMDF, PT, BMP3M, PHOS3, MG3, CK3 #### [address] #### VD25H #### [place] [address] [place] [address] MCH Entitic mass (RBC) 28.9 pg Normal 26.0-34.0 [facility] Comment on above: Performed By: #### H EMDF, PT, BMP3M, PHOS3, MG3, CK3 #### [address] #### VD25H #### [place] [address] [place] [address] MCHC mass conc (RBC) 33.6 % Normal 32.0-36.0 [facility] Comment on above: Performed By: #### H EMDF, PT, BMP3M, PHOS3, MG3, CK3 #### [address] #### VD25H #### [facility] [address] [place] [address] MCV Entitic volume (RBC) 86.1 fL Normal 80.0-98.0 [facility] Comment on above: Performed By: #### H EMDF, PT, BMP3M, PHOS3, MG3, CK3 #### [address] #### VD25H #### [facility] [address] [place] [address] Monocytes #/vol (Bld) 0.9 10*3/uL High 0.0-0.8 [facility] Comment on above: Performed By: #### H EMDF, PT, BMP3M, PHOS3, MG3, CK3 #### [place] [address] [address] [place] #### VD25H #### [facility] [address] [place] [address] Monocytes/100 WBC (Bld) 5.5 % Normal 2.0-10.0 [facility] Comment on above: Performed By: #### H EMDF, PT, BMP3M, PHOS3, MG3, CK3 #### [address] #### VD25H #### [facility] [address] [place] [address] Platelet mean volume Entitic volume (Bld) 8.2 fL Normal 7.4-10.4 [facility] Comment on above: Performed By: #### H EMDF, PT, BMP3M, PHOS3, MG3, CK3 #### [address] #### VD25H #### [facility] [address] [place] [address] Platelets #/vol (Bld) 475 10*3/uL High 140-440 [facility] Comment on above: Performed By: #### H EMDF, PT, BMP3M, PHOS3, MG3, CK3 #### [address] #### VD25H #### [facility] [address] [place] [address] RBC #/vol (Bld) 3.75 10*6/uL Low 4.40-5.90 [facility] Comment on above: Performed By: #### H EMDF, PT, BMP3M, PHOS3, MG3, CK3 #### [facility] [address] [place] #### VD25H #### [facility] [address] [place] [address] WBC #/vol (Bld) 16.6 10*3/uL High 3.6-10.7 [facility] Comment on above: Performed By: #### H EMDF, PT, BMP3M, PHOS3, MG3, CK3 #### [place] [address] [address] [place] #### VD25H #### [facility] [address] [place] [address] Magnesiumon 07-31-2018 Magnesium mass conc 2.4 mg/dL High 1.6-2.3 [facility] Comment on above: Performed By: #### H EMDF, PT, BMP3M, PHOS3, MG3, CK3 #### [address] #### VD25H #### [facility] [address] [place] [address] Phosphoruson 07-31-2018 Phosphate mass conc 4.5 mg/dL Normal 2.5-4.5 [facility] Comment on above: Performed By: #### H EMDF, PT, BMP3M, PHOS3, MG3, CK3 #### [address] #### VD25H #### [facility] [address] [place] [address] Basic Metabolic Panelon Calcium mass conc 8.6 mg/dL Normal 8.4-10.4 [facility] Comment on above: Performed By: #### H EMDF, PT, BMP3M, PHOS3, MG3, CK3 #### [address] #### VD25H #### [facility] [address] [place] [address] Anion gap molar conc 8 Normal [facility] Comment on above: Performed By: #### H EMDF, PT, BMP3M, PHOS3, MG3, CK3 #### [address] [address] #### VD25H #### [facility] [address] [place] [address] CO2 molar conc 34 mmol/L High 22-30 [facility] Comment on above: Performed By: #### H EMDF, PT, BMP3M, PHOS3, MG3, CK3 #### [address] [address] #### VD25H #### [facility] [address] [place] [address] Creatinine mass conc 0.56 mg/dL Normal 0.52-1.25 [facility] Comment on above: Performed By: #### H EMDF, PT, BMP3M, PHOS3, MG3, CK3 #### [address] [address] #### VD25H #### [facility] [address] [place] [address] GFR/1.73 sq M predicted among blacks MDRD vol rate/area (S/P/Bld) mL/min/{1.73_m2} Normal >60 [facility] Comment on above: Performed By: #### H EMDF, PT, BMP3M, PHOS3, MG3, CK3 #### [address] [address] #### VD25H #### [facility] [address] [facility] [place] [address] GFR/1.73 sq M predicted among non-blacks MDRD vol rate/area (S/P/Bld) mL/min/{1.73_m2} Normal >60 [facility] Comment on above: Result Comment: Sour ce- MDRD equation with creatinine calibration to IDMS(NKDEP) eGFR not recommended for drug dose adjustment Performed By: #### H EMDF, PT, BMP3M, PHOS3, MG3, CK3 #### [address], [place] #### VD25H #### [facility] [address] [place] [address] Glucose mass conc 121 mg/dL High 70-100 [facility] Comment on above: Performed By: #### H EMDF, PT, BMP3M, PHOS3, MG3, CK3 #### [place] [address] [address] [facility], [place] #### VD25H #### [facility] [address] [place] [address] Urea nitrogen mass conc 29 mg/dL High 7-20 [facility] Comment on above: Performed By: #### H EMDF, PT, BMP3M, PHOS3, MG3, CK3 #### [place] [address] [address] [facility], [place] #### VD25H #### [facility] [address] [place] [address] Chloride molar conc 99 mmol/L Normal 98-107 [facility] Comment on above: Performed By: #### H EMDF, PT, BMP3M, PHOS3, MG3, CK3 #### [place] [address] [facility] #### VD25H #### [facility] [address] [place] [address] Potassium molar conc 3.7 mmol/L Normal 3.5-5.1 [facility] Comment on above: Performed By: #### H EMDF, PT, BMP3M, PHOS3, MG3, CK3 #### [place] [address] [address] [facility], [place] #### VD25H #### [facility] [address] [place] [address] Sodium molar conc 141 mmol/L Normal 135-145 [facility] Comment on above: Performed By: #### H EMDF, PT, BMP3M, PHOS3, MG3, CK3 #### [place] [address] [address], [place] #### [id number] #### [facility] [address] [place] [address] CR Abdomen APon 07-30-2018 CR Abdomen AP Patient Name: KATHYA HOOPER Diagnostic Radiology Exam Date/Time 07/30/2018 10:28:42 EDT Exam CR Abdomen AP Ordering Physician INDRA JACOBSON Accession Number [id number] CPT4 Codes 43304 () Reason For Exam abd distension Report [...] Transcribed Date and Time: 07/30/2018 3:57 Normal [facility] CR Chest Portableon 07-31-19 19 CR Chest Portable Patient Name: KATHYA HOOPER Diagnostic Radiology Exam Date/Time 07/30/2018 12:28:13 EDT Exam CR Chest Portable Ordering Physician SALO DAVIS Accession Number [id number] CPT4 Codes 11401 () Reason For Exam line reposition Report [...] Transcribed Date and Time: 07/30/2018 1:32 Normal [facility] CR Chest Portable Patient Name: KATHYA HOOPER Diagnostic Radiology Exam Date/Time 07/30/2018 06:40:08 EDT Exam CR Chest Portable Ordering Physician MARIA EUGENIA PEREZ Accession Number [id number] CPT4 Codes 04750 () Reason For Exam ETT placement Report [...] Transcribed Date and Time: 07/30/2018 10:26 Normal [facility] Glucose,Bedsideon 07-30-2018 Glucose mass conc 125 mg/dL High 70-100 [facility] Comment on above: Result Comment: Test performed by glucose meter. Results may be 10%-15% lower than serum/plasma values. (CLIA ID [id number]) Performed By: #### H EMDF, PT, BMP3M, PHOS3, MG3, CK3 #### [address] #### VD25H #### [facility] [address] [place] [address] Glucose mass conc 117 mg/dL High 70-100 [facility] Comment on above: Result Comment: Test performed by glucose meter. Results may be 10%-15% lower than serum/plasma values. (CLIA ID [id number]) Performed By: #### H EMDF, PT, BMP3M, PHOS3, MG3, CK3 #### [address] #### VD25H #### [place] [address] [place] [address] Glucose mass conc 44 mg/dL Low 70-100 [facility] Comment on above: Result Comment: Repe ated Test; Test performed by glucose meter. Results may be 10%-15% lower than serum/plasma values. (CLIA ID [id number]) Performed By: #### H EMDF, PT, BMP3M, PHOS3, MG3, CK3 #### [address] #### VD25H #### [facility] [address] [place] [address] Hemogram w/ Autodiffon 07-30 Abs Baso Cnt 0.2 10*3/uL Normal 0.0-0.2 [facility] Comment on above: Performed By: #### H EMDF, PT, BMP3M, PHOS3, MG3, CK3 #### [address] #### VD25H #### [facility] [address] [place] [address] Abs Neutrophile Cnt 13.2 10*3/uL High 1.8-7.0 [facility] Comment on above: Performed By: #### H EMDF, PT, BMP3M, PHOS3, MG3, CK3 #### [facility] [address] [place], [place] #### VD25H #### [facility] [address] [place] [address] Basophils/100 WBC (Bld) 0.9 % Normal 0.0-2.0 [facility] Comment on above: Performed By: #### H EMDF, PT, BMP3M, PHOS3, MG3, CK3 #### [place] [address] [address] [place] #### VD25H #### [facility] [address] [place] [address] Eosinophils #/vol (Bld) 0.5 10*3/uL Normal 0.0-0.5 [facility] Comment on above: Performed By: #### H EMDF, PT, BMP3M, PHOS3, MG3, CK3 #### [address] #### VD25H #### [facility] [address] [place] [address] Eosinophils/100 WBC (Bld) 2.8 % Normal 1.0-6.0 [facility] Comment on above: Performed By: #### H EMDF, PT, BMP3M, PHOS3, MG3, CK3 #### [address] #### VD25H #### [facility] [address] [place] [address] Erythrocyte distribution width Ratio (RBC) 13.7 % Normal 11.5-14.5 [facility] Comment on above: Performed By: #### H EMDF, PT, BMP3M, PHOS3, MG3, CK3 #### [address] #### VD25H #### [facility] [address] [place] [address] Granulocytes/100 WBC (Bld) 76.6 % Normal 40.0-80.0 [facility] Comment on above: Performed By: #### H EMDF, PT, BMP3M, PHOS3, MG3, CK3 #### [address] #### VD25H #### [facility] [address] [place] [address] Hematocrit Volume Fraction (Bld) 31.4 % Low 40.0-52.0 [facility] Comment on above: Performed By: #### H EMDF, PT, BMP3M, PHOS3, MG3, CK3 #### [address] #### VD25H #### [facility] [address] [place] [address] Hemoglobin mass conc (Bld) 10.6 g/dL Low 13.0-18.0 [facility] Comment on above: Performed By: #### H EMDF, PT, BMP3M, PHOS3, MG3, CK3 #### [address] #### VD25H #### [facility] [address] [place] [address] Lymphocytes #/vol (Bld) 2.2 10*3/uL Normal 1.0-4.3 [facility] Comment on above: Performed By: #### H EMDF, PT, BMP3M, PHOS3, MG3, CK3 #### [address] #### VD25H #### [facility] [address] [place] [address] Lymphocytes/100 WBC (Bld) 12.9 % Low 20.0-40.0 [facility] Comment on above: Performed By: #### H EMDF, PT, BMP3M, PHOS3, MG3, CK3 #### [address] #### VD25H #### [facility] [address] [place] [address] MCH Entitic mass (RBC) 29.2 pg Normal 26.0-34.0 [facility] Comment on above: Performed By: #### H EMDF, PT, BMP3M, PHOS3, MG3, CK3 #### [facility] [address] [place] #### VD25H #### [facility] [address] [place] [address] MCHC mass conc (RBC) 33.8 % Normal 32.0-36.0 [facility] Comment on above: Performed By: #### H EMDF, PT, BMP3M, PHOS3, MG3, CK3 #### [address] #### VD25H #### [facility] [address] [place] [address] MCV Entitic volume (RBC) 86.4 fL Normal 80.0-98.0 [facility] Comment on above: Performed By: #### H EMDF, PT, BMP3M, PHOS3, MG3, CK3 #### [place] [address] [place] #### VD25H #### [facility] [address] [place] [address] Monocytes #/vol (Bld) 1.2 10*3/uL High 0.0-0.8 [facility] Comment on above: Performed By: #### H EMDF, PT, BMP3M, PHOS3, MG3, CK3 #### [address] #### VD25H #### [facility] [address] [place] [address] Monocytes/100 WBC (Bld) 6.8 % Normal 2.0-10.0 [facility] Comment on above: Performed By: #### H EMDF, PT, BMP3M, PHOS3, MG3, CK3 #### [address] #### VD25H #### [facility] [address] [place] [address] Platelet mean volume Entitic volume (Bld) 8.1 fL Normal 7.4-10.4 [facility] Comment on above: Performed By: #### H EMDF, PT, BMP3M, PHOS3, MG3, CK3 #### [facility] [address] [place] #### VD25H #### [facility] [address] [place] [address] Platelets #/vol (Bld) 507 10*3/uL High 140-440 [facility] Comment on above: Performed By: #### H EMDF, PT, BMP3M, PHOS3, MG3, CK3 #### [place] [address] [place] #### VD25H #### [facility] [address] [place] [address] RBC #/vol (Bld) 3.64 10*6/uL Low 4.40-5.90 [facility] Comment on above: Performed By: #### H EMDF, PT, BMP3M, PHOS3, MG3, CK3 #### [address] #### VD25H #### [facility] [address] [place] [address] WBC #/vol (Bld) 17.2 10*3/uL High 3.6-10.7 [facility] Comment on above: Performed By: #### H EMDF, PT, BMP3M, PHOS3, MG3, CK3 #### [address] [place], [place] #### VD25H #### [facility] [address] [place] [address] Magnesiumon 07-30-2018 Magnesium mass conc 2.5 mg/dL High 1.6-2.3 [facility] Comment on above: Performed By: #### H EMDF, PT, BMP3M, PHOS3, MG3, CK3 #### [address] #### VD25H #### [facility] [address] [place] [address] Phosphoruson 07-30-2018 Phosphate mass conc 4.5 mg/dL Normal 2.5-4.5 [facility] Comment on above: Performed By: #### H EMDF, PT, BMP3M, PHOS3, MG3, CK3 #### [facility] [address] [place] #### VD25H #### [facility] [address] [place] [address] VL Venous Duplex US Lower Ex t Bilateralon 07-30-2018 VL Venous Duplex US Lower Ext Bilateral Patient Name: KATHYA HOOPER Ultrasound Exam Date/Time 07/30/2018 12:27:47 EDT Exam VL Venous Duplex US Lower Ext Bilateral Ordering Physician ETIENNE MARTÍNEZ JULIE Accession Number [id number] CPT4 Codes 41445 () Reason For Exam edema Report [facility] --- Lower Extremity Venous Duplex Report Patient Name: Kathya Hooper : 1955 Study Date: 07/30/2018 [place] (63yrs) Age: 63 Account: [id number] Gender: M Loc: [id number] BP: Ordering: Yesenia Martínez Technologist: Ordering Physician: Yesenia Martínez [employer]op Riveting Machine Operator: Barbara Suarez RDMS, T Interpreting Physician: Krysta Arora --- Location: [facility] --- INDICATIONS: Edema. --- CONCLUSIONS [...] performed. The images were obtained using a [employer] E9 vascular ultrasound machine. --- VENOUS FLOW [...] ---------+-------+--- --+ Electronically signed by: Krysta Arora [id number] Final Dictated: 07/30/2018 1:30 pm Dictating Physician: KRYSTA ARORA Signed Date and Time: 07/30/2018 1:29 pm Signed by: KRYSTA ARORA [facility] Arterial Blood Gaseson 07-29 CO2 molar conc 34.4 mmol/L High 23.0-27.0 [facility] Comment on above: Performed By: #### H EMDF, PT, BMP3M, PHOS3, MG3, CK3 #### [facility] [address] [place] #### VD25H #### [facility] [address] [place] [address] HCO3 molar conc (Bld) 33.0 mmol/L High 21.0-25.0 [facility] Comment on above: Performed By: #### H EMDF, PT, BMP3M, PHOS3, MG3, CK3 #### [place] [address] [place] #### VD25H #### [facility] [address] [place] [address] Hemoglobin mass conc (Bld) 11.5 g/dL Normal ScreenOnly [facility] Comment on above: Performed By: #### H EMDF, PT, BMP3M, PHOS3, MG3, CK3 #### [address] #### VD25H #### [facility] [address] [facility] [place] [address] Oxygen ppres (Bld) 84.2 mm[Hg] Normal 80.0-100.0 [facility] Comment on above: Performed By: #### H EMDF, PT, BMP3M, PHOS3, MG3, CK3 #### [address] #### VD25H #### [facility] [address] [place] [address] Oxygen saturation in Blood 96.2 % Normal 95.0-100.0 [facility] Comment on above: Performed By: #### H EMDF, PT, BMP3M, PHOS3, MG3, CK3 #### [place] [address] [place] #### VD25H #### [facility] [address] [place] [address] pCO2 46.8 mm[Hg] High 35.0-45.0 [facility] Comment on above: Performed By: #### H EMDF, PT, BMP3M, PHOS3, MG3, CK3 #### [place] [address] [address] [place] #### VD25H #### [facility] [address] [place] [address] pH (Bld) 7.466 High 7.350-7.450 [facility] Comment on above: Performed By: #### H EMDF, PT, BMP3M, PHOS3, MG3, CK3 #### [address] [place], [place] #### VD25H #### [place] [address] [place] [address] Std Base Excess 8.2 mmol/L High -3.0-3.0 [facility] Comment on above: Performed By: #### H EMDF, PT, BMP3M, PHOS3, MG3, CK3 #### [place] [address] [place] #### VD25H #### [place] [address] [place] [address] FIO2 .30 Normal [facility] Comment on above: Performed By: #### H EMDF, PT, BMP3M, PHOS3, MG3, CK3 #### [place] [address] [address] [facility], [place] #### VD25H #### [facility] [address] [place] [address] Basic Metabolic Panelon 03-3 Calcium mass conc 8.5 mg/dL Normal 8.4-10.4 [facility] Comment on above: Performed By: #### H EMDF, PT, BMP3M, PHOS3, MG3, CK3 #### [place] [address] [place] #### VD25H #### [place] [address] [place] [address] Glucose mass conc 163 mg/dL High 70-100 [facility] Comment on above: Performed By: #### H EMDF, PT, BMP3M, PHOS3, MG3, CK3 #### [facility] [address] [place] [address] #### VD25H #### [facility] [address] [place] [address] Anion gap molar conc 10 Normal [facility] Comment on above: Performed By: #### H EMDF, PT, BMP3M, PHOS3, MG3, CK3 #### [address] #### VD25H #### [facility] [address] [place] [address] CO2 molar conc 37 mmol/L High 22-30 [facility] Comment on above: Performed By: #### H EMDF, PT, BMP3M, PHOS3, MG3, CK3 #### [address] #### VD25H #### [facility] [address] [place] [address] Creatinine mass conc 0.57 mg/dL Normal 0.52-1.25 [facility] Comment on above: Performed By: #### H EMDF, PT, BMP3M, PHOS3, MG3, CK3 #### [address] #### VD25H #### [facility] [address] [place] [address] GFR/1.73 sq M predicted among blacks MDRD vol rate/area (S/P/Bld) mL/min/{1.73_m2} Normal >60 [facility] Comment on above: Performed By: #### H EMDF, PT, BMP3M, PHOS3, MG3, CK3 #### [address] #### VD25H #### [facility] [address] [place] [address] GFR/1.73 sq M predicted among non-blacks MDRD vol rate/area (S/P/Bld) mL/min/{1.73_m2} Normal >60 [facility] Comment on above: Result Comment: Sour ce- MDRD equation with creatinine calibration to IDMS(NKDEP) eGFR not recommended for drug dose adjustment Performed By: #### H EMDF, PT, BMP3M, PHOS3, MG3, CK3 #### [address] [place], [place] #### VD25H #### [facility] [address] [place] [address] Urea nitrogen mass conc 30 mg/dL High 7-20 [facility] Comment on above: Performed By: #### H EMDF, PT, BMP3M, PHOS3, MG3, CK3 #### [address] #### VD25H #### [facility] [address] [place] [address] Chloride molar conc 95 mmol/L Low 98-107 [facility] Comment on above: Performed By: #### H EMDF, PT, BMP3M, PHOS3, MG3, CK3 #### [address] #### VD25H #### [facility] [address] [place] [address] Potassium molar conc 3.3 mmol/L Low 3.5-5.1 [facility] Comment on above: Performed By: #### H EMDF, PT, BMP3M, PHOS3, MG3, CK3 #### [address] #### VD25H #### [facility] [address] [place] [address] Sodium molar conc 141 mmol/L Normal 135-145 [facility] Comment on above: Performed By: #### H EMDF, PT, BMP3M, PHOS3, MG3, CK3 #### [facility] [address] [place], [place] #### VD25H #### [facility] [address] [place] [address] CR Chest Portableon 07-30-19 19 CR Chest Portable Patient Name: KATHYA HOOPER Diagnostic Radiology Exam Date/Time 07/29/2018 07:01:44 EDT Exam CR Chest Portable Ordering Physician MARIA EUGENIA PEREZ Accession Number [id number] CPT4 Codes 34097 () Reason For Exam ETT placement Report [...] Transcribed Date and Time: 07/29/2018 9:04 Normal [facility] Glucose,Bedsideon 07-29-2018 Glucose mass conc 124 mg/dL High 70-[address] [facility] Comment on above: Result Comment: Test performed by glucose meter. Results may be 10%-15% lower than serum/plasma values. (CLIA ID [id number]) Performed By: #### H EMDF, PT, BMP3M, PHOS3, MG3, CK3 #### [facility] [address] [place], [place] #### VD25H #### [facility] [address] [place] [address] Glucose mass conc 175 mg/dL High 70-[address] [facility] [employer] [facility] Comment on above: Result Comment: Test performed by glucose meter. Results may be 10%-15% lower than serum/plasma values. (CLIA ID [id number]) Performed By: #### H EMDF, PT, BMP3M, PHOS3, MG3, CK3 #### [facility] [address] [place] [address] #### VD25H #### [employer] [facility] [address] [place], [place] Glucose mass conc 138 mg/dL High 70-100 [facility] Comment on above: Result Comment: Test performed by glucose meter. Results may be 10%-15% lower than serum/plasma values. (CLIA ID [id number]) Performed By: #### H EMDF, PT, BMP3M, PHOS3, MG3, CK3 #### [employer] [address] #### VD25H #### [employer] [facility] [address] [place] [address] Glucose mass conc 147 mg/dL High 70-100 [facility] Comment on above: Result Comment: Test performed by glucose meter. Results may be 10%-15% lower than serum/plasma values. (CLIA ID [id number]) Performed By: #### H EMDF, PT, BMP3M, PHOS3, MG3, CK3 #### [employer] [address] [place] [address] #### VD25H #### [employer] [facility] [address] [place] [address] Hemogram w/ Autodiffon 07-29 Erythrocyte distribution width Ratio (RBC) 13.8 % Normal 11.5-14.5 [facility] [employer] Comment on above: Performed By: #### H EMDF, PT, BMP3M, PHOS3, MG3, CK3 #### [employer] [address] #### VD25H #### [employer] [address] [place] [address] Hematocrit Volume Fraction (Bld) 32.9 % Low 40.0-52.0 [facility] Comment on above: Performed By: #### H EMDF, PT, BMP3M, PHOS3, MG3, CK3 #### [address] #### VD25H #### [facility] [address] [place] [address] Hemoglobin mass conc (Bld) 11.0 g/dL Low 13.0-18.0 [facility] Comment on above: Performed By: #### H EMDF, PT, BMP3M, PHOS3, MG3, CK3 #### [address] #### VD25H #### [facility] [address] [place] [address] MCH Entitic mass (RBC) 29.0 pg Normal 26.0-34.0 [facility] Comment on above: Performed By: #### H EMDF, PT, BMP3M, PHOS3, MG3, CK3 #### [address] #### VD25H #### [facility] [address] [place] [address] MCHC mass conc (RBC) 33.6 % Normal 32.0-36.0 [facility] Comment on above: Performed By: #### H EMDF, PT, BMP3M, PHOS3, MG3, CK3 #### [address] #### VD25H #### [facility] [address] [place] [address] MCV Entitic volume (RBC) 86.3 fL Normal 80.0-98.0 [facility] Comment on above: Performed By: #### H EMDF, PT, BMP3M, PHOS3, MG3, CK3 #### [address] #### VD25H #### [facility] [address] [place] [address] Platelet mean volume Entitic volume (Bld) 8.1 fL Normal 7.4-10.4 [facility] Comment on above: Performed By: #### H EMDF, PT, BMP3M, PHOS3, MG3, CK3 #### [facility] [address] [place] #### VD25H #### [facility] [address] [place] [address] Platelets #/vol (Bld) 501 10*3/uL High 140-440 [facility] Comment on above: Performed By: #### H EMDF, PT, BMP3M, PHOS3, MG3, CK3 #### [address] #### VD25H #### [facility] [address] [place] [address] RBC #/vol (Bld) 3.81 10*6/uL Low 4.40-5.90 [facility] Comment on above: Performed By: #### H EMDF, PT, BMP3M, PHOS3, MG3, CK3 #### [address] [place], [place] #### VD25H #### [facility] [address] [place] [address] WBC #/vol (Bld) 20.8 10*3/uL High 3.6-10.7 [facility] Comment on above: Performed By: #### H EMDF, PT, BMP3M, PHOS3, MG3, CK3 #### [place] [address] [place] #### VD25H #### [facility] [address] [place] [address] Magnesiumon 07-29-2018 Magnesium mass conc 2.5 mg/dL High 1.6-2.3 [facility] Comment on above: Performed By: #### H EMDF, PT, BMP3M, PHOS3, MG3, CK3 #### [place] [address] [place] #### VD25H #### [facility] [address] [place] [address] Manual Diffon 07-29-2018 Abs Neutrophile Cnt 17.3 10*3/uL High 2.2-8.2 [facility] Comment on above: Performed By: #### H EMDF, PT, BMP3M, PHOS3, MG3, CK3 #### [address] #### VD25H #### [facility] [address] [place] [address] Bands 1 % Normal 0-3 [facility] Comment on above: Performed By: #### H EMDF, PT, BMP3M, PHOS3, MG3, CK3 #### [address] #### VD25H #### [place] [address] [place] [address] Eosinophils #/vol (Bld) 0.6 10*3/uL High 0.0-0.5 [facility] Comment on above: Performed By: #### H EMDF, PT, BMP3M, PHOS3, MG3, CK3 #### [address] #### VD25H #### [place] [address] [place] [address] Eosinophils/100 WBC (Bld) 3 % Normal 1-6 [facility] Comment on above: Performed By: #### H EMDF, PT, BMP3M, PHOS3, MG3, CK3 #### [address] #### VD25H #### [place] [address] [place] [address] Lymphocytes #/vol (Bld) 2.3 10*3/uL Normal 1.1-4.5 [facility] Comment on above: Performed By: #### H EMDF, PT, BMP3M, PHOS3, MG3, CK3 #### [address] #### VD25H #### [facility] [address] [place] [address] Lymphocytes/100 WBC (Bld) 11 % Low 20-40 [facility] Comment on above: Performed By: #### H EMDF, PT, BMP3M, PHOS3, MG3, CK3 #### [place] [address] [place] #### VD25H #### [facility] [address] [place] [address] Metamyelocytes 1 % Abnormal <1 [facility] Comment on above: Performed By: #### H EMDF, PT, BMP3M, PHOS3, MG3, CK3 #### [place] [address] [place] #### VD25H #### [place] [address] [place] [address] Monocytes #/vol (Bld) 0.4 10*3/uL Normal 0.2-1.1 [facility] Comment on above: Performed By: #### H EMDF, PT, BMP3M, PHOS3, MG3, CK3 #### [place] [address] [place] #### VD25H #### [facility] [address] [place] [address] Monocytes/100 WBC (Bld) 2 % Normal 2-10 [facility] Comment on above: Performed By: #### H EMDF, PT, BMP3M, PHOS3, MG3, CK3 #### [place] [address] [place] #### VD25H #### [facility] [address] [place] [address] RBC morphology finding Nom (Bld) See Prev Normal [facility] Comment on above: Performed By: #### H EMDF, PT, BMP3M, PHOS3, MG3, CK3 #### [place] [address] [place] #### VD25H #### [facility] [address] [place] [address] Seg Neutrophils 82 % High 40-80 [facility] Comment on above: Performed By: #### H EMDF, PT, BMP3M, PHOS3, MG3, CK3 #### [facility] [address] [place] #### VD25H #### [facility] [address] [place] [address] Abs Baso Cnt 0.0 10*3/uL Normal 0.0-0.2 [facility] Comment on above: Performed By: #### H EMDF, PT, BMP3M, PHOS3, MG3, CK3 #### [place] [address] [place] #### VD25H #### [facility] [address] [place] [address] Basophils/100 WBC (Bld) 0 % Normal 0-2 [facility] Comment on above: Performed By: #### H EMDF, PT, BMP3M, PHOS3, MG3, CK3 #### [place] [address] [place] #### VD25H #### [facility] [address] [place] [address] Cells counted 100 Normal [facility] Comment on above: Performed By: #### H EMDF, PT, BMP3M, PHOS3, MG3, CK3 #### [place] [address] [place] #### VD25H #### [facility] [address] [place] [address] Phosphoruson 07-29-2018 Phosphate mass conc 4.2 mg/dL Normal 2.5-4.5 [facility] Comment on above: Performed By: #### H EMDF, PT, BMP3M, PHOS3, MG3, CK3 #### [place] [address] [place] #### VD25H #### [facility] [address] [place] [address] Procalcitoninon 07-29-2018 Protein mass conc 0.11 ng/mL Abnormal <0.10 [facility] Comment on above: Performed By: #### H EMDF, PT, BMP3M, PHOS3, MG3, CK3 #### [address] #### VD25H #### [facility] [address] [place] [address] Interpretation See Below Normal [facility] Comment on above: Result Comment: PCT <0.50 = Low risk of severe sepsis and/or septic shock. PCT >2.00 = High risk of severe sepsis and/or septic shock. Performed By: #### H EMDF, PT, BMP3M, PHOS3, MG3, CK3 #### [address] #### VD25H #### [facility] [address] [place] [address] Vancomycin Troughon 07-30-19 19 Vancomycin Trough 12.2 ug/mL Low 15.0-20.0 [facility] Comment on above: Result Comment: . Performed By: #### H EMDF, PT, BMP3M, PHOS3, MG3, CK3 #### [address] #### VD25H #### [facility] [address] [place] [address] Basic Metabolic Panelon 07-01 Calcium mass conc 8.6 mg/dL Normal 8.4-10.4 [facility] Comment on above: Performed By: #### H EMDF, PT, BMP3M, PHOS3, MG3, CK3 #### [address] #### VD25H #### [facility] [address] [place] [address] Glucose mass conc 158 mg/dL High 70-100 [facility] Comment on above: Performed By: #### H EMDF, PT, BMP3M, PHOS3, MG3, CK3 #### [facility] [address] [facility] [place] [address] #### VD25H #### [facility] [address] [place] [address] Urea nitrogen mass conc 29 mg/dL High 7-20 [facility] Comment on above: Performed By: #### H EMDF, PT, BMP3M, PHOS3, MG3, CK3 #### [facility] [address] [facility] [place] [address] #### VD25H #### [facility] [address] [place] [address] Anion gap molar conc 9 Normal [facility] Comment on above: Performed By: #### H EMDF, PT, BMP3M, PHOS3, MG3, CK3 #### [place] [address] [facility] [place] [address] #### VD25H #### [facility] [address] [place] [address] CO2 molar conc 32 mmol/L High 22-30 [facility] Comment on above: Performed By: #### H EMDF, PT, BMP3M, PHOS3, MG3, CK3 #### [place] [address] [facility] [place] [address] #### VD25H #### [facility] [address] [place] [address] Creatinine mass conc 0.61 mg/dL Normal 0.52-1.25 [facility] Comment on above: Performed By: #### H EMDF, PT, BMP3M, PHOS3, MG3, CK3 #### [place] [address] [facility] [place] [address] #### VD25H #### [facility] [address] [place] [address] GFR/1.73 sq M predicted among blacks MDRD vol rate/area (S/P/Bld) mL/min/{1.73_m2} Normal >60 [facility] Comment on above: Performed By: #### H EMDF, PT, BMP3M, PHOS3, MG3, CK3 #### [place] [address] [address] [place], [place] #### VD25H #### [facility] [address] [place] [address] GFR/1.73 sq M predicted among non-blacks MDRD vol rate/area (S/P/Bld) mL/min/{1.73_m2} Normal >60 [facility] Comment on above: Result Comment: Sour ce- MDRD equation with creatinine calibration to IDMS(NKDEP) eGFR not recommended for drug dose adjustment Performed By: #### H EMDF, PT, BMP3M, PHOS3, MG3, CK3 #### [place] [address] [address] [facility], [place] #### VD25H #### [facility] [address] [place] [address] Potassium molar conc 3.6 mmol/L Normal 3.5-5.1 [facility] Comment on above: Performed By: #### H EMDF, PT, BMP3M, PHOS3, MG3, CK3 #### [place] [address] [address] [facility], [place] #### VD25H #### [facility] [address] [place] [address] Chloride molar conc 100 mmol/L Normal 98-107 [facility] Comment on above: Performed By: #### H EMDF, PT, BMP3M, PHOS3, MG3, CK3 #### [place] [address] [address] [facility], [place] #### VD25H #### [facility] [address] [place] [address] Sodium molar conc 141 mmol/L Normal 135-145 [facility] Comment on above: Performed By: #### H EMDF, PT, BMP3M, PHOS3, MG3, CK3 #### [address] [facility], [place] #### VD25H #### [facility] [address] [place] [address] CR Chest Portableon 07-29-19 19 CR Chest Portable Patient Name: KATHYA HOOPER Diagnostic Radiology Exam Date/Time 07/28/2018 07:09:40 EDT Exam CR Chest Portable Ordering Physician MARIA EUGENIA PEREZ Accession Number [id number] CPT4 Codes 17464 () Reason For Exam ETT placement Report [...] Transcribed Date and Time: 07/28/2018 7:16 Normal [facility] Glucose,Bedsideon 07-28-2018 Glucose mass conc 149 mg/dL High 70-100 [facility] Comment on above: Result Comment: Test performed by glucose meter. Results may be 10%-15% lower than serum/plasma values. (CLIA ID [id number]) Performed By: #### H EMDF, PT, BMP3M, PHOS3, MG3, CK3 #### [facility] [address] [place] [address] #### VD25H #### [facility] [address] [facility] [place] [address] Glucose mass conc 142 mg/dL High 70-100 [facility] Comment on above: Result Comment: Test performed by glucose meter. Results may be 10%-15% lower than serum/plasma values. (CLIA ID [id number]) Performed By: #### H EMDF, PT, BMP3M, PHOS3, MG3, CK3 #### [address] [place], [place] #### VD25H #### [facility] [address] [place] [address] Hemogram w/ Autodiffon 07-28 Erythrocyte distribution width Ratio (RBC) 13.8 % Normal 11.5-14.5 [facility] Comment on above: Performed By: #### H EMDF, PT, BMP3M, PHOS3, MG3, CK3 #### [place] [address] [address] [place] #### VD25H #### [facility] [address] [place] [address] Hematocrit Volume Fraction (Bld) 33.0 % Low 40.0-52.0 [facility] Comment on above: Performed By: #### H EMDF, PT, BMP3M, PHOS3, MG3, CK3 #### [address] #### VD25H #### [facility] [address] [place] [address] Hemoglobin mass conc (Bld) 11.0 g/dL Low 13.0-18.0 [facility] Comment on above: Performed By: #### H EMDF, PT, BMP3M, PHOS3, MG3, CK3 #### [address] #### VD25H #### [facility] [address] [place] [address] MCH Entitic mass (RBC) 28.7 pg Normal 26.0-34.0 [facility] Comment on above: Performed By: #### H EMDF, PT, BMP3M, PHOS3, MG3, CK3 #### [address] #### VD25H #### [facility] [address] [place] [address] MCHC mass conc (RBC) 33.4 % Normal 32.0-36.0 [facility] Comment on above: Performed By: #### H EMDF, PT, BMP3M, PHOS3, MG3, CK3 #### [address] [place], [place] #### VD25H #### [facility] [address] [place] [address] MCV Entitic volume (RBC) 86.0 fL Normal 80.0-98.0 [facility] Comment on above: Performed By: #### H EMDF, PT, BMP3M, PHOS3, MG3, CK3 #### [address] [place] #### VD25H #### [facility] [address] [place] [address] Platelet mean volume Entitic volume (Bld) 8.4 fL Normal 7.4-10.4 [facility] Comment on above: Performed By: #### H EMDF, PT, BMP3M, PHOS3, MG3, CK3 #### [address] #### VD25H #### [facility] [address] [place] [address] Platelets #/vol (Bld) 477 10*3/uL High 140-440 [facility] Comment on above: Performed By: #### H EMDF, PT, BMP3M, PHOS3, MG3, CK3 #### [address] #### VD25H #### [facility] [address] [place] [address] RBC #/vol (Bld) 3.84 10*6/uL Low 4.40-5.90 [facility] Comment on above: Performed By: #### H EMDF, PT, BMP3M, PHOS3, MG3, CK3 #### [address] #### VD25H #### [facility] [address] [place] [address] WBC #/vol (Bld) 18.1 10*3/uL High 3.6-10.7 [facility] Comment on above: Performed By: #### H EMDF, PT, BMP3M, PHOS3, MG3, CK3 #### [address] #### VD25H #### [facility] [address] [place] [address] Magnesiumon 07-28-2018 Magnesium mass conc 2.4 mg/dL High 1.6-2.3 [facility] Comment on above: Performed By: #### H EMDF, PT, BMP3M, PHOS3, MG3, CK3 #### [address] #### VD25H #### [facility] [address] [place] [address] Manual Diffon 07-28-2018 Abs Neutrophile Cnt 14.8 10*3/uL High 2.2-8.2 [facility] Comment on above: Performed By: #### H EMDF, PT, BMP3M, PHOS3, MG3, CK3 #### [address] #### VD25H #### [facility] [address] [place] [address] Anisocytosis Ql (Bld) Slight Normal [facility] Comment on above: Performed By: #### H EMDF, PT, BMP3M, PHOS3, MG3, CK3 #### [address] #### VD25H #### [facility] [address] [place] [address] Hypochromia Slight Normal [facility] Comment on above: Performed By: #### H EMDF, PT, BMP3M, PHOS3, MG3, CK3 #### [address] #### VD25H #### [facility] [address] [place] [address] Lymphocytes #/vol (Bld) 1.3 10*3/uL Normal 1.1-4.5 [facility] Comment on above: Performed By: #### H EMDF, PT, BMP3M, PHOS3, MG3, CK3 #### [facility] [address] [place] #### VD25H #### [facility] [address] [place] [address] Lymphocytes/100 WBC (Bld) 7 % Low 20-40 [facility] Comment on above: Performed By: #### H EMDF, PT, BMP3M, PHOS3, MG3, CK3 #### [place] [address] [address] [address] [place] #### VD25H #### [facility] [address] [place] [address] Microcytosis Slight Normal [facility] Comment on above: Performed By: #### H EMDF, PT, BMP3M, PHOS3, MG3, CK3 #### [place] [address] [address] [place] #### VD25H #### [facility] [address] [place] [address] Monocytes #/vol (Bld) 2.0 10*3/uL High 0.2-1.1 [facility] Comment on above: Performed By: #### H EMDF, PT, BMP3M, PHOS3, MG3, CK3 #### [place] [address] [address] [place] #### VD25H #### [facility] [address] [place] [address] Monocytes/100 WBC (Bld) 11 % High 2-10 [facility] Comment on above: Performed By: #### H EMDF, PT, BMP3M, PHOS3, MG3, CK3 #### [place] [address] [address] [place] #### VD25H #### [facility] [address] [place] [address] RBC morphology finding Nom (Bld) ABNORMAL Normal [facility] Comment on above: Performed By: #### H EMDF, PT, BMP3M, PHOS3, MG3, CK3 #### [address] #### VD25H #### [facility] [address] [place] [address] Seg Neutrophils 82 % High 40-80 [facility] Comment on above: Performed By: #### H EMDF, PT, BMP3M, PHOS3, MG3, CK3 #### [address] [place], [place] #### VD25H #### [facility] [address] [place] [address] Abs Baso Cnt 0.0 10*3/uL Normal 0.0-0.2 [facility] Comment on above: Performed By: #### H EMDF, PT, BMP3M, PHOS3, MG3, CK3 #### [address] #### VD25H #### [facility] [address] [place] [address] Bands 0 % Normal 0-3 [facility] Comment on above: Performed By: #### H EMDF, PT, BMP3M, PHOS3, MG3, CK3 #### [address] #### VD25H #### [facility] [address] [place] [address] Basophils/100 WBC (Bld) 0 % Normal 0-2 [facility] Comment on above: Performed By: #### H EMDF, PT, BMP3M, PHOS3, MG3, CK3 #### [address] #### VD25H #### [facility] [address] [place] [address] Cells counted 100 Normal [facility] Comment on above: Performed By: #### H EMDF, PT, BMP3M, PHOS3, MG3, CK3 #### [address] [place], [place] #### VD25H #### [facility] [address] [place] [address] Eosinophils #/vol (Bld) 0.0 10*3/uL Normal 0.0-0.5 [facility] Comment on above: Performed By: #### H EMDF, PT, BMP3M, PHOS3, MG3, CK3 #### [address] #### VD25H #### [facility] [address] [place] [address] Eosinophils/100 WBC (Bld) 0 % Low 1-6 [facility] Comment on above: Performed By: #### H EMDF, PT, BMP3M, PHOS3, MG3, CK3 #### [address] #### VD25H #### [facility] [address] [place] [address] Phosphoruson 07-28-2018 Phosphate mass conc 4.4 mg/dL Normal 2.5-4.5 [facility] Comment on above: Performed By: #### H EMDF, PT, BMP3M, PHOS3, MG3, CK3 #### [address] #### VD25H #### [facility] [address] [place] [address] Vancomycin Troughon 07-29-19 19 Vancomycin Trough 12.9 ug/mL Low 15.0-20.0 [facility] Comment on above: Result Comment: . Performed By: #### H EMDF, PT, BMP3M, PHOS3, MG3, CK3 #### [address] #### VD25H #### [facility] [address] [place] [address] Arterial Blood Gaseson 07-27 CO2 molar conc 28.4 mmol/L High 23.0-27.0 [facility] Comment on above: Performed By: #### H EMDF, PT, BMP3M, PHOS3, MG3, CK3 #### [place] [address] [address] [place] #### VD25H #### [facility] [address] [place] [address] HCO3 molar conc (Bld) 27.2 mmol/L High 21.0-25.0 [facility] Comment on above: Performed By: #### H EMDF, PT, BMP3M, PHOS3, MG3, CK3 #### [place] [address] [address] [place] #### VD25H #### [facility] [address] [place] [address] Hemoglobin mass conc (Bld) 11.7 g/dL Normal ScreenOnly [facility] Comment on above: Performed By: #### H EMDF, PT, BMP3M, PHOS3, MG3, CK3 #### [place] [address] [address] [place] #### VD25H #### [facility] [address] [place] [address] Oxygen ppres (Bld) 91.3 mm[Hg] Normal 80.0-100.0 [facility] Comment on above: Performed By: #### H EMDF, PT, BMP3M, PHOS3, MG3, CK3 #### [place] [address] [address] [place] #### VD25H #### [facility] [address] [place] [address] Oxygen saturation in Blood 96.9 % Normal 95.0-100.0 [facility] Comment on above: Performed By: #### H EMDF, PT, BMP3M, PHOS3, MG3, CK3 #### [address] [place], [place] #### VD25H #### [facility] [address] [place] [address] pCO2 39.0 mm[Hg] Normal 35.0-45.0 [facility] Comment on above: Performed By: #### H EMDF, PT, BMP3M, PHOS3, MG3, CK3 #### [facility] [address] [place] #### VD25H #### [facility] [address] [place] [address] pH (Bld) 7.461 High 7.350-7.450 [facility] Comment on above: Performed By: #### H EMDF, PT, BMP3M, PHOS3, MG3, CK3 #### [place] [address] [address] [place] #### VD25H #### [facility] [address] [place] [address] Std Base Excess 3.2 mmol/L High -3.0-3.0 [facility] Comment on above: Performed By: #### H EMDF, PT, BMP3M, PHOS3, MG3, CK3 #### [place] [address] [address] [place] #### VD25H #### [facility] [address] [place] [address] FIO2 No data Normal [facility] Comment on above: Performed By: #### H EMDF, PT, BMP3M, PHOS3, MG3, CK3 #### [place] [address] [place] #### VD25H #### [facility] [address] [place] [address] Basic Metabolic Panelon 03-2 Anion gap molar conc 12 Normal [facility] Comment on above: Performed By: #### H EMDF, PT, BMP3M, PHOS3, MG3, CK3 #### [place] [address] [address] [place] #### VD25H #### [facility] [address] [place] [address] Calcium mass conc 8.3 mg/dL Low 8.4-10.4 [facility] Comment on above: Performed By: #### H EMDF, PT, BMP3M, PHOS3, MG3, CK3 #### [address] [place], [place] #### VD25H #### [facility] [address] [place] [address] CO2 molar conc 28 mmol/L Normal 22-30 [facility] Comment on above: Performed By: #### H EMDF, PT, BMP3M, PHOS3, MG3, CK3 #### [place] [address] [address] [place] #### VD25H #### [facility] [address] [place] [address] Glucose mass conc 156 mg/dL High 70-100 [facility] Comment on above: Performed By: #### H EMDF, PT, BMP3M, PHOS3, MG3, CK3 #### [address] #### VD25H #### [facility] [address] [place] [address] Urea nitrogen mass conc 21 mg/dL High 7-20 [facility] Comment on above: Performed By: #### H EMDF, PT, BMP3M, PHOS3, MG3, CK3 #### [address] #### VD25H #### [facility] [address] [place] [address] Creatinine mass conc 0.53 mg/dL Normal 0.52-1.25 [facility] Comment on above: Performed By: #### H EMDF, PT, BMP3M, PHOS3, MG3, CK3 #### [address] #### VD25H #### [facility] [address] [place] [address] GFR/1.73 sq M predicted among blacks MDRD vol rate/area (S/P/Bld) mL/min/{1.73_m2} Normal >60 [facility] Comment on above: Performed By: #### H EMDF, PT, BMP3M, PHOS3, MG3, CK3 #### [facility] [address] [place] #### VD25H #### [facility] [address] [place] [address] GFR/1.73 sq M predicted among non-blacks MDRD vol rate/area (S/P/Bld) mL/min/{1.73_m2} Normal >60 [facility] Comment on above: Result Comment: Sour ce- MDRD equation with creatinine calibration to IDMS(NKDEP) eGFR not recommended for drug dose adjustment Performed By: #### H EMDF, PT, BMP3M, PHOS3, MG3, CK3 #### [place] [address] [address] [place] #### VD25H #### [facility] [address] [place] [address] Potassium molar conc 3.2 mmol/L Low 3.5-5.1 [facility] Comment on above: Performed By: #### H EMDF, PT, BMP3M, PHOS3, MG3, CK3 #### [place] [address] [address] [place] #### VD25H #### [facility] [address] [place] [address] Chloride molar conc 99 mmol/L Normal 98-107 [facility] Comment on above: Performed By: #### H EMDF, PT, BMP3M, PHOS3, MG3, CK3 #### [address] [place] #### VD25H #### [facility] [address] [place] [address] Sodium molar conc 139 mmol/L Normal 135-145 [facility] Comment on above: Performed By: #### H EMDF, PT, BMP3M, PHOS3, MG3, CK3 #### [place] [address] [place] #### VD25H #### [facility] [address] [place] [address] CR Chest Portableon 07-28-19 19 CR Chest Portable Patient Name: KATHYA HOOPER Diagnostic Radiology Exam Date/Time 07/27/2018 07:08:59 EDT Exam CR Chest Portable Ordering Physician MARIA EUGENIA PEREZ Accession Number [id number] CPT4 Codes 47169 () Reason For Exam ETT placement Report [...] Transcribed Date and Time: 07/27/2018 8:02 Normal [facility] Glucose,Bedsideon 07-27-2018 Glucose mass conc 151 mg/dL High 70-100 [facility] Comment on above: Result Comment: Test performed by glucose meter. Results may be 10%-15% lower than serum/plasma values. (CLIA ID [id number]) Performed By: #### H EMDF, PT, BMP3M, PHOS3, MG3, CK3 #### [facility] [employer] [address] [place] [address] #### VD25H #### [facility] [address] [place] [address] Glucose mass conc 131 mg/dL High 70-[address] [email or web address] Comment on above: Result Comment: Test performed by glucose meter. Results may be 10%-15% lower than serum/plasma values. (CLIA ID [id number]) Performed By: #### H EMDF, PT, BMP3M, PHOS3, MG3, CK3 #### [facility] [address] [place], [place] #### VD25H #### [facility] [address] [place] [address] Glucose mass conc 123 mg/dL High 70-100 [facility] Comment on above: Result Comment: Test performed by glucose meter. Results may be 10%-15% lower than serum/plasma values. (CLIA ID [id number]) Performed By: #### H EMDF, PT, BMP3M, PHOS3, MG3, CK3 #### [facility] [address] [place] [address] #### VD25H #### [employer] [facility] [address] [place] [address] Glucose mass conc 133 mg/dL High 70-100 [facility] Comment on above: Result Comment: Test performed by glucose meter. Results may be 10%-15% lower than serum/plasma values. (CLIA ID [id number]) Performed By: #### H EMDF, PT, BMP3M, PHOS3, MG3, CK3 #### [employer] [address] #### VD25H #### [facility] [address] [place] [address] Hemogram w/ Autodiffon 07-27 Erythrocyte distribution width Ratio (RBC) 13.5 % Normal 11.5-14.5 [facility] Comment on above: Performed By: #### H EMDF, PT, BMP3M, PHOS3, MG3, CK3 #### [employer] [address] #### VD25H #### [facility] [address] [place] [address] Hematocrit Volume Fraction (Bld) 32.5 % Low 40.0-52.0 [facility] Comment on above: Performed By: #### H EMDF, PT, BMP3M, PHOS3, MG3, CK3 #### [address] #### VD25H #### [facility] [address] [place] [address] Hemoglobin mass conc (Bld) 11.1 g/dL Low 13.0-18.0 [facility] Comment on above: Performed By: #### H EMDF, PT, BMP3M, PHOS3, MG3, CK3 #### [address] #### VD25H #### [facility] [address] [place] [address] MCH Entitic mass (RBC) 29.2 pg Normal 26.0-34.0 [facility] Comment on above: Performed By: #### H EMDF, PT, BMP3M, PHOS3, MG3, CK3 #### [address] #### VD25H #### [place] [address] [place] [address] MCHC mass conc (RBC) 34.1 % Normal 32.0-36.0 [facility] Comment on above: Performed By: #### H EMDF, PT, BMP3M, PHOS3, MG3, CK3 #### [address] #### VD25H #### [facility] [address] [place] [address] MCV Entitic volume (RBC) 85.7 fL Normal 80.0-98.0 [facility] Comment on above: Performed By: #### H EMDF, PT, BMP3M, PHOS3, MG3, CK3 #### [address] #### VD25H #### [facility] [address] [place] [address] Platelet mean volume Entitic volume (Bld) 7.9 fL Normal 7.4-10.4 [facility] Comment on above: Performed By: #### H EMDF, PT, BMP3M, PHOS3, MG3, CK3 #### [place] [address] [address] [place] #### VD25H #### [facility] [address] [place] [address] Platelets #/vol (Bld) 466 10*3/uL High 140-440 [facility] Comment on above: Performed By: #### H EMDF, PT, BMP3M, PHOS3, MG3, CK3 #### [place] [address] [address] [place] #### VD25H #### [facility] [address] [place] RBC #/vol (Bld) 3.79 10*6/uL Low 4.40-5.90 [facility] Comment on above: Performed By: #### H EMDF, PT, BMP3M, PHOS3, MG3, CK3 #### [place] [address] [address] [place] #### VD25H #### [facility] [address] [place] [address] WBC #/vol (Bld) 18.7 10*3/uL High 3.6-10.7 [facility] Comment on above: Performed By: #### H EMDF, PT, BMP3M, PHOS3, MG3, CK3 #### [address] #### VD25H #### [facility] [address] [place] [address] Magnesiumon 07-27-2018 Magnesium mass conc 2.1 mg/dL Normal 1.6-2.3 [facility] Comment on above: Performed By: #### H EMDF, PT, BMP3M, PHOS3, MG3, CK3 #### [address] [place], [place] #### VD25H #### [place] [address] [place] [address] Manual Diffon 07-27-2018 RBC morphology finding Nom (Bld) Normal Normal [facility] Comment on above: Performed By: #### H EMDF, PT, BMP3M, PHOS3, MG3, CK3 #### [facility] [address] [place] #### VD25H #### [facility] [address] [place] [address] Abs Neutrophile Cnt 14.2 10*3/uL High 2.2-8.2 [facility] Comment on above: Performed By: #### H EMDF, PT, BMP3M, PHOS3, MG3, CK3 #### [place] [address] [address] [place] #### VD25H #### [facility] [address] [place] [address] Atypical Lymphocytes 2 % Abnormal <1 [facility] Comment on above: Performed By: #### H EMDF, PT, BMP3M, PHOS3, MG3, CK3 #### [place] [address] [address] [place] #### VD25H #### [facility] [address] [place] [address] Bands 5 % High 0-3 [facility] Comment on above: Performed By: #### H EMDF, PT, BMP3M, PHOS3, MG3, CK3 #### [place] [address] [address] [place] #### VD25H #### [facility] [address] [place] [address] Eosinophils #/vol (Bld) 0.6 10*3/uL High 0.0-0.5 [facility] Comment on above: Performed By: #### H EMDF, PT, BMP3M, PHOS3, MG3, CK3 #### [place] [address] [address] [place] #### VD25H #### [facility] [address] [place] [address] Eosinophils/100 WBC (Bld) 3 % Normal 1-6 [facility] Comment on above: Performed By: #### H EMDF, PT, BMP3M, PHOS3, MG3, CK3 #### [facility] [address] [place] #### VD25H #### [facility] [address] [place] [address] Lymphocytes #/vol (Bld) 2.1 10*3/uL Normal 1.1-4.5 [facility] Comment on above: Performed By: #### H EMDF, PT, BMP3M, PHOS3, MG3, CK3 #### [facility] [address] [place] #### VD25H #### [facility] [address] [place] [address] Lymphocytes/100 WBC (Bld) 11 % Low 20-40 [facility] Comment on above: Performed By: #### H EMDF, PT, BMP3M, PHOS3, MG3, CK3 #### [place] [address] [address] [place] #### VD25H #### [facility] [address] [place] [address] Monocytes #/vol (Bld) 1.5 10*3/uL High 0.2-1.1 [facility] Comment on above: Performed By: #### H EMDF, PT, BMP3M, PHOS3, MG3, CK3 #### [place] [address] [address] [place] #### VD25H #### [facility] [address] [place] [address] Monocytes/100 WBC (Bld) 8 % Normal 2-10 [facility] Comment on above: Performed By: #### H EMDF, PT, BMP3M, PHOS3, MG3, CK3 #### [place] [address] [address] [place] #### VD25H #### [facility] [address] [place] [address] NRBC 1 /100{WBCs} High -1-0 [facility] Comment on above: Result Comment: Newb orn (<60 days) 1-10 Adult <1 Performed By: #### H EMDF, PT, BMP3M, PHOS3, MG3, CK3 #### [address] [place], [place] #### VD25H #### [facility] [address] [place] [address] Seg Neutrophils 71 % Normal 40-80 [facility] Comment on above: Performed By: #### H EMDF, PT, BMP3M, PHOS3, MG3, CK3 #### [place] [address] [address] [place] #### VD25H #### [facility] [address] [place] [address] Abs Baso Cnt 0.0 10*3/uL Normal 0.0-0.2 [facility] Comment on above: Performed By: #### H EMDF, PT, BMP3M, PHOS3, MG3, CK3 #### [place] [address] [address] [place] #### VD25H #### [facility] [address] [place] [address] Basophils/100 WBC (Bld) 0 % Normal 0-2 [facility] Comment on above: Performed By: #### H EMDF, PT, BMP3M, PHOS3, MG3, CK3 #### [address] #### [id number] #### [facility] [address] [place] [address] Cells counted 100 Normal [facility] Comment on above: Performed By: #### H EMDF, PT, BMP3M, PHOS3, MG3, CK3 #### [address] #### [id number] #### [facility] [address] [place] [address] Phosphoruson 07-27-2018 Phosphate mass conc 3.0 mg/dL Normal 2.5-4.5 [facility] Comment on above: Performed By: #### H EMDF, PT, BMP3M, PHOS3, MG3, CK3 #### [facility] [address] [place] [address] #### [id number] #### [facility] [employer] [address] [place] [address] VL Venous Duplex US Lower Ex t Bilateralon 07-27-2018 VL Venous Duplex US Lower Ext Bilateral Patient Name: KATHYA HOOPER Ultrasound Exam Date/Time 07/27/2018 10:56:18 EDT Exam VL Venous Duplex US Lower Ext Bilateral Ordering Physician ETIENNE MARTÍNEZ JULIE Accession Number [id number] CPT4 Codes 69105 () Reason For Exam edema Report [facility] --- Lower Extremity Venous Duplex Report Patient Name: Kathya Hooper : 1955 Study Date: 07/27/2018 W (63yrs) Age: 63 Account: [id number] Gender: M Loc: T209 BP: Ordering: Yesenia Martínez Technologist: Ordering Physician: Yesenia Martínez Hoop Riveting Machine Operator: Mary Man Lissette Interpreting Physician: Ricardo Hall MD --- Location: [facility] --- INDICATIONS: Bilateral leg edema. [...] performed. The images were obtained using a [employer] Vision E9 vascular ultrasound machine. The study was [...] --+ Electronically signed by: Ricardo Hall MD [id number] Final Dictated: 07/27/2018 12:55 pm Dictating Physician: RICARDO HALL Signed Date and Time: 07/27/2018 12:55 pm Signed by: RICARDO HALL Normal [facility] Basic Metabolic Panelon 06-30 Calcium mass conc 7.9 mg/dL Low 8.4-10.4 [facility] Comment on above: Performed By: #### H EMDF, PT, BMP3M, PHOS3, MG3, CK3 #### [address] #### VD25H #### [facility] [address] [facility] [place] [address] Anion gap molar conc 9 Normal [facility] Comment on above: Performed By: #### H EMDF, PT, BMP3M, PHOS3, MG3, CK3 #### [address] #### VD25H #### [facility] [address] [place] [address] CO2 molar conc 24 mmol/L Normal 22-30 [facility] Comment on above: Performed By: #### H EMDF, PT, BMP3M, PHOS3, MG3, CK3 #### [address] #### VD25H #### [facility] [address] [place] [address] Creatinine mass conc 0.54 mg/dL Normal 0.52-1.25 [facility] Comment on above: Performed By: #### H EMDF, PT, BMP3M, PHOS3, MG3, CK3 #### [facility] [address] [place] [address] #### VD25H #### [facility] [address] [place] [address] GFR/1.73 sq M predicted among blacks MDRD vol rate/area (S/P/Bld) mL/min/{1.73_m2} Normal >60 [facility] Comment on above: Performed By: #### H EMDF, PT, BMP3M, PHOS3, MG3, CK3 #### [place] [address] [place], [place] #### VD25H #### [facility] [address] [place] [address] GFR/1.73 sq M predicted among non-blacks MDRD vol rate/area (S/P/Bld) mL/min/{1.73_m2} Normal >60 [facility] Comment on above: Result Comment: Sour ce- MDRD equation with creatinine calibration to IDMS(NKDEP) eGFR not recommended for drug dose adjustment Performed By: #### H EMDF, PT, BMP3M, PHOS3, MG3, CK3 #### [address] [address] [place], [place] #### VD25H #### [facility] [address] [place] [address] Glucose mass conc 166 mg/dL High 70-100 [facility] Comment on above: Performed By: #### H EMDF, PT, BMP3M, PHOS3, MG3, CK3 #### [place] [address] [facility], [place] #### VD25H #### [facility] [address] [place] [address] Urea nitrogen mass conc 21 mg/dL High 7-20 [facility] Comment on above: Performed By: #### H EMDF, PT, BMP3M, PHOS3, MG3, CK3 #### [place] [address] [facility] #### VD25H #### [facility] [address] [place] [address] Chloride molar conc 107 mmol/L Normal 98-107 [facility] Comment on above: Performed By: #### H EMDF, PT, BMP3M, PHOS3, MG3, CK3 #### [facility] [address] [place], [place] #### VD25H #### [facility] [address] [place] [address] Potassium molar conc 3.7 mmol/L Normal 3.5-5.1 [facility] Comment on above: Performed By: #### H EMDF, PT, BMP3M, PHOS3, MG3, CK3 #### [facility] [address] [place], [place] #### VD25H #### [facility] [address] [place] [address] Sodium molar conc 140 mmol/L Normal 135-145 [facility] Comment on above: Performed By: #### H EMDF, PT, BMP3M, PHOS3, MG3, CK3 #### [facility] [address] [place], [place] #### VD25H #### [facility] [address] [place] [address] CR Chest Portableon 07-27-19 19 CR Chest Portable Patient Name: KATHYA HOOPER Diagnostic Radiology Exam Date/Time 07/26/2018 06:06:25 EDT Exam CR Chest Portable Ordering Physician MARIA EUGENIA PEREZ Accession Number [id number] CPT4 Codes 19277 () Reason For Exam ETT placement Report [...] Time: 07/26/2018 9:[address] [email or web address] Glucose,Bedsideon 07-26-2018 Glucose mass conc 160 mg/dL High 70-[address] [facility] Comment on above: Result Comment: Test performed by glucose meter. Results may be 10%-15% lower than serum/plasma values. (CLIA ID [id number]) Performed By: #### H EMDF, PT, BMP3M, PHOS3, MG3, CK3 #### [address] [place], [place] #### VD25H #### [facility] [address] [place] [address] Glucose mass conc 166 mg/dL High 70-[address] [facility] Comment on above: Result Comment: Test performed by glucose meter. Results may be 10%-15% lower than serum/plasma values. (CLIA ID [id number]) Performed By: #### H EMDF, PT, BMP3M, PHOS3, MG3, CK3 #### [address] [place], [place] #### VD25H #### [facility] [address] [place] [address] Glucose mass conc 183 mg/dL High 70-[address] [facility] Comment on above: Result Comment: Test performed by glucose meter. Results may be 10%-15% lower than serum/plasma values. (CLIA ID [id number]) Performed By: #### H EMDF, PT, BMP3M, PHOS3, MG3, CK3 #### [address] [place], [place] #### VD25H #### [facility] [address] [facility] [place] [address] Glucose mass conc 151 mg/dL High 70-100 [facility] Comment on above: Result Comment: Test performed by glucose meter. Results may be 10%-15% lower than serum/plasma values. (CLIA ID [id number]) Performed By: #### H EMDF, PT, BMP3M, PHOS3, MG3, CK3 #### [address] #### VD25H #### [place] [address] [place] [address] Hemogram w/ Autodiffon 07-26 Erythrocyte distribution width Ratio (RBC) 13.7 % Normal 11.5-14.5 [facility] Comment on above: Performed By: #### H EMDF, PT, BMP3M, PHOS3, MG3, CK3 #### [address] #### VD25H #### [address] [place] [address] Hematocrit Volume Fraction (Bld) 31.1 % Low 40.0-52.0 [facility] Comment on above: Performed By: #### H EMDF, PT, BMP3M, PHOS3, MG3, CK3 #### [address] #### VD25H #### [address] [facility] [place] [address] Hemoglobin mass conc (Bld) 10.6 g/dL Low 13.0-18.0 [facility] Comment on above: Performed By: #### H EMDF, PT, BMP3M, PHOS3, MG3, CK3 #### [address] #### VD25H #### [place] [address] [place] [address] MCH Entitic mass (RBC) 29.2 pg Normal 26.0-34.0 [facility] Comment on above: Performed By: #### H EMDF, PT, BMP3M, PHOS3, MG3, CK3 #### [address] [place], [place] #### VD25H #### [facility] [address] [place] [address] MCHC mass conc (RBC) 34.0 % Normal 32.0-36.0 [facility] Comment on above: Performed By: #### H EMDF, PT, BMP3M, PHOS3, MG3, CK3 #### [address] [place], [place] #### VD25H #### [facility] [address] [place] [address] MCV Entitic volume (RBC) 86.1 fL Normal 80.0-98.0 [facility] Comment on above: Performed By: #### H EMDF, PT, BMP3M, PHOS3, MG3, CK3 #### [address] #### VD25H #### [facility] [address] [place] [address] Platelet mean volume Entitic volume (Bld) 8.3 fL Normal 7.4-10.4 [facility] Comment on above: Performed By: #### H EMDF, PT, BMP3M, PHOS3, MG3, CK3 #### [address] #### VD25H #### [facility] [address] [place] [address] Platelets #/vol (Bld) 364 10*3/uL Normal 140-440 [facility] Comment on above: Performed By: #### H EMDF, PT, BMP3M, PHOS3, MG3, CK3 #### [address] #### VD25H #### [facility] [address] [place] [address] RBC #/vol (Bld) 3.62 10*6/uL Low 4.40-5.90 [facility] Comment on above: Performed By: #### H EMDF, PT, BMP3M, PHOS3, MG3, CK3 #### [facility] [address] [place], [place] #### VD25H #### [facility] [address] [place] [address] WBC #/vol (Bld) 15.2 10*3/uL High 3.6-10.7 [facility] Comment on above: Performed By: #### H EMDF, PT, BMP3M, PHOS3, MG3, CK3 #### [address] #### VD25H #### [facility] [address] [place] [address] Magnesiumon 07-26-2018 Magnesium mass conc 2.0 mg/dL Normal 1.6-2.3 [facility] Comment on above: Performed By: #### H EMDF, PT, BMP3M, PHOS3, MG3, CK3 #### [address] #### VD25H #### [facility] [address] [place] [address] Manual Diffon 07-26-2018 Abs Neutrophile Cnt 12.8 10*3/uL High 2.2-8.2 [facility] Comment on above: Performed By: #### H EMDF, PT, BMP3M, PHOS3, MG3, CK3 #### [address] [address] [address] [place], [place] #### VD25H #### [facility] [address] [address] Lymphocytes #/vol (Bld) 1.4 10*3/uL Normal 1.1-4.5 [facility] Comment on above: Performed By: #### H EMDF, PT, BMP3M, PHOS3, MG3, CK3 #### [address] #### VD25H #### [facility] [address] [place] [address] Lymphocytes/100 WBC (Bld) 9 % Low 20-40 [facility] Comment on above: Performed By: #### H EMDF, PT, BMP3M, PHOS3, MG3, CK3 #### [address] [address] [address] [place], [place] #### VD25H #### [facility] [address] [place] [address] Monocytes #/vol (Bld) 1.1 10*3/uL Normal 0.2-1.1 [facility] Comment on above: Performed By: #### H EMDF, PT, BMP3M, PHOS3, MG3, CK3 #### [address] #### VD25H #### [place] [address] [place] [address] Monocytes/100 WBC (Bld) 7 % Normal 2-10 [facility] Comment on above: Performed By: #### H EMDF, PT, BMP3M, PHOS3, MG3, CK3 #### [address] #### VD25H #### [facility] [address] [place] [address] RBC morphology finding Nom (Bld) Normal Normal [facility] Comment on above: Performed By: #### H EMDF, PT, BMP3M, PHOS3, MG3, CK3 #### [address] #### VD25H #### [facility] [address] [place] [address] Seg Neutrophils 84 % High 40-80 [facility] Comment on above: Performed By: #### H EMDF, PT, BMP3M, PHOS3, MG3, CK3 #### [address] #### VD25H #### [facility] [address] [place] [address] Abs Baso Cnt 0.0 10*3/uL Normal 0.0-0.2 [facility] Comment on above: Performed By: #### H EMDF, PT, BMP3M, PHOS3, MG3, CK3 #### [facility] [address] [place] #### VD25H #### [facility] [address] [place] [address] Bands 0 % Normal 0-3 [facility] Comment on above: Performed By: #### H EMDF, PT, BMP3M, PHOS3, MG3, CK3 #### [place] [place] [address] [address] [place] #### VD25H #### [facility] [address] [place] [address] Basophils/100 WBC (Bld) 0 % Normal 0-2 [facility] Comment on above: Performed By: #### H EMDF, PT, BMP3M, PHOS3, MG3, CK3 #### [place] [address] [address] [place] #### VD25H #### [facility] [address] [place] [address] Cells counted 100 Normal [facility] Comment on above: Performed By: #### H EMDF, PT, BMP3M, PHOS3, MG3, CK3 #### [place] [address] [place] #### VD25H #### [facility] [address] [place] [address] Eosinophils #/vol (Bld) 0.0 10*3/uL Normal 0.0-0.5 [facility] Comment on above: Performed By: #### H EMDF, PT, BMP3M, PHOS3, MG3, CK3 #### [address] [place], [place] #### VD25H #### [facility] [address] [place] [address] Eosinophils/100 WBC (Bld) 0 % Low 1-6 [facility] Comment on above: Performed By: #### H EMDF, PT, BMP3M, PHOS3, MG3, CK3 #### [place] [address] [address] [place] #### VD25H #### [facility] [address] [place] [address] Phosphoruson 07-26-2018 Phosphate mass conc 3.1 mg/dL Normal 2.5-4.5 [facility] Comment on above: Performed By: #### H EMDF, PT, BMP3M, PHOS3, MG3, CK3 #### [place] [address] [place] #### VD25H #### [facility] [address] [place] [address] Vancomycin Troughon 07-27-19 19 Vancomycin Trough 8.9 ug/mL Low 15.0-20.0 [facility] Comment on above: Result Comment: . Performed By: #### H EMDF, PT, BMP3M, PHOS3, MG3, CK3 #### [address] #### VD25H #### [facility] [address] [place] [address] Arterial Blood Gaseson 07-25 CO2 molar conc 22.0 mmol/L Low 23.0-27.0 [facility] Comment on above: Performed By: #### H EMDF, PT, BMP3M, PHOS3, MG3, CK3 #### [place] [address] [address] [place] #### VD25H #### [facility] [address] [place] [address] HCO3 molar conc (Bld) 21.1 mmol/L Normal 21.0-25.0 [facility] Comment on above: Performed By: #### H EMDF, PT, BMP3M, PHOS3, MG3, CK3 #### [address] #### VD25H #### [facility] [address] [place] [address] Hemoglobin mass conc (Bld) 10.1 g/dL Normal ScreenOnly [facility] Comment on above: Performed By: #### H EMDF, PT, BMP3M, PHOS3, MG3, CK3 #### [facility] [address] [place] #### VD25H #### [facility] [address] [place] [address] Oxygen ppres (Bld) 88.3 mm[Hg] Normal 80.0-100.0 [facility] Comment on above: Performed By: #### H EMDF, PT, BMP3M, PHOS3, MG3, CK3 #### [address] #### VD25H #### [facility] [address] [place] [address] Oxygen saturation in Blood 96.8 % Normal 95.0-100.0 [facility] Comment on above: Performed By: #### H EMDF, PT, BMP3M, PHOS3, MG3, CK3 #### [address] #### VD25H #### [facility] [address] [place] [address] pCO2 29.9 mm[Hg] Low 35.0-45.0 [facility] Comment on above: Performed By: #### H EMDF, PT, BMP3M, PHOS3, MG3, CK3 #### [facility] [address] [place] #### VD25H #### [facility] [address] [place] [address] pH (Bld) 7.467 High 7.350-7.450 [facility] Comment on above: Performed By: #### H EMDF, PT, BMP3M, PHOS3, MG3, CK3 #### [address] #### VD25H #### [facility] [address] [place] [address] Std Base Excess -1.9 mmol/L Normal -3.0-3.0 [facility] Comment on above: Performed By: #### H EMDF, PT, BMP3M, PHOS3, MG3, CK3 #### [facility] [address] [place] #### VD25H #### [facility] [address] [place] [address] FIO2 .30 Normal [facility] Comment on above: Performed By: #### H EMDF, PT, BMP3M, PHOS3, MG3, CK3 #### [address] #### VD25H #### [facility] [address] [place] [address] Basic Metabolic Panelon 03-2 Calcium mass conc 8.1 mg/dL Low 8.4-10.4 [facility] Comment on above: Performed By: #### H EMDF, PT, BMP3M, PHOS3, MG3, CK3 #### [address] #### VD25H #### [facility] [address] [place] [address] Anion gap molar conc 8 Normal [facility] Comment on above: Performed By: #### H EMDF, PT, BMP3M, PHOS3, MG3, CK3 #### [address] #### VD25H #### [facility] [address] [place] [address] CO2 molar conc 24 mmol/L Normal 22-30 [facility] Comment on above: Performed By: #### H EMDF, PT, BMP3M, PHOS3, MG3, CK3 #### [address] #### VD25H #### [facility] [address] [place] [address] Creatinine mass conc 0.55 mg/dL Normal 0.52-1.25 [facility] Comment on above: Performed By: #### H EMDF, PT, BMP3M, PHOS3, MG3, CK3 #### [facility] [address] [place], [place] #### VD25H #### [facility] [address] [place] [address] GFR/1.73 sq M predicted among blacks MDRD vol rate/area (S/P/Bld) mL/min/{1.73_m2} Normal >60 [facility] Comment on above: Performed By: #### H EMDF, PT, BMP3M, PHOS3, MG3, CK3 #### [address] #### VD25H #### [facility] [address] [place] [address] GFR/1.73 sq M predicted among non-blacks MDRD vol rate/area (S/P/Bld) mL/min/{1.73_m2} Normal >60 [facility] Comment on above: Result Comment: Sour ce- MDRD equation with creatinine calibration to IDMS(NKDEP) eGFR not recommended for drug dose adjustment Performed By: #### H EMDF, PT, BMP3M, PHOS3, MG3, CK3 #### [address] #### VD25H #### [facility] [address] [place] [address] Glucose mass conc 184 mg/dL High 70-100 [facility] Comment on above: Performed By: #### H EMDF, PT, BMP3M, PHOS3, MG3, CK3 #### [address] #### VD25H #### [facility] [address] [place] [address] Urea nitrogen mass conc 20 mg/dL Normal 7-20 [facility] Comment on above: Performed By: #### H EMDF, PT, BMP3M, PHOS3, MG3, CK3 #### [facility] [address] [place] [address] #### VD25H #### [facility] [address] [place] [address] Chloride molar conc 109 mmol/L High 98-107 [facility] Comment on above: Performed By: #### H EMDF, PT, BMP3M, PHOS3, MG3, CK3 #### [facility] [address] [facility] [place] [address] #### VD25H #### [facility] [address] [place] [address] Potassium molar conc 4.0 mmol/L Normal 3.5-5.1 [facility] Comment on above: Performed By: #### H EMDF, PT, BMP3M, PHOS3, MG3, CK3 #### [place] [place] [address] [address] [place] #### VD25H #### [facility] [address] [place] [address] Sodium molar conc 141 mmol/L Normal 135-145 [facility] Comment on above: Performed By: #### H EMDF, PT, BMP3M, PHOS3, MG3, CK3 #### [facility] [address] [place], [place] #### VD25H #### [facility] [address] [place] [address] CR Chest Portableon 07-26-19 19 CR Chest Portable Patient Name: KATHYA HOOPER Diagnostic Radiology Exam Date/Time 07/25/2018 06:39:42 EDT Exam CR Chest Portable Ordering Physician MARIA EUGENIA PEREZ Accession Number [id number] CPT4 Codes 13798 () Reason For Exam ETT placement Report [...] RISA Transcribed Date and Time: 07/25/2018 7:45 [facility] CULTURE URINEon 07-25-2018 CULTURE URINE 1 [...] 4 S Trimeth/Sulfa(CHRISTI) <= 20 S Normal [facility] Comment on above: Order Comment: Speci men Source Comment:Urine, clean catch Performed By: #### H EMDF, PT, BMP3M, PHOS3, MG3, CK3 #### [facility] [address] [place], [place] #### VD25H #### [facility] [address] [place] [address] Glucose,Bedsideon 07-25-2018 Glucose mass conc 140 mg/dL High 70-100 [facility] Comment on above: Result Comment: Test performed by glucose meter. Results may be 10%-15% lower than serum/plasma values. (CLIA ID [id number]) Performed By: #### H EMDF, PT, BMP3M, PHOS3, MG3, CK3 #### [facility] [place] #### VD25H #### [facility] [address] [place] [address] Glucose mass conc 158 mg/dL High 70-100 [facility] Comment on above: Result Comment: Test performed by glucose meter. Results may be 10%-15% lower than serum/plasma values. (CLIA ID [id number]) Performed By: #### H EMDF, PT, BMP3M, PHOS3, MG3, CK3 #### [facility] [address] [place] [address] #### VD25H #### [facility] [address] [place] [address] Glucose mass conc 172 mg/dL High 70-100 [facility] Comment on above: Result Comment: Test performed by glucose meter. Results may be 10%-15% lower than serum/plasma values. (CLIA ID [id number]) Performed By: #### H EMDF, PT, BMP3M, PHOS3, MG3, CK3 #### [facility] [address] [place] [address] #### VD25H #### [facility] [address] [place] [address] Glucose mass conc 169 mg/dL High 70-100 [facility] Comment on above: Result Comment: Test performed by glucose meter. Results may be 10%-15% lower than serum/plasma values. (CLIA ID [id number]) Performed By: #### H EMDF, PT, BMP3M, PHOS3, MG3, CK3 #### [address] #### VD25H #### [facility] [address] [place] [address] Glucose mass conc 165 mg/dL High 70-100 [facility] Comment on above: Result Comment: Test performed by glucose meter. Results may be 10%-15% lower than serum/plasma values. (CLIA ID [id number]) Performed By: #### H EMDF, PT, BMP3M, PHOS3, MG3, CK3 #### [address] #### VD25H #### [facility] [address] [place] [address] Hemogram w/ Autodiffon 07-25 Erythrocyte distribution width Ratio (RBC) 13.6 % Normal 11.5-14.5 [facility] Comment on above: Performed By: #### H EMDF, PT, BMP3M, PHOS3, MG3, CK3 #### [address] #### VD25H #### [facility] [address] [place] [address] Hematocrit Volume Fraction (Bld) 31.3 % Low 40.0-52.0 [facility] Comment on above: Performed By: #### H EMDF, PT, BMP3M, PHOS3, MG3, CK3 #### [address] #### VD25H #### [facility] [address] [place] [address] Hemoglobin mass conc (Bld) 10.6 g/dL Low 13.0-18.0 [facility] Comment on above: Performed By: #### H EMDF, PT, BMP3M, PHOS3, MG3, CK3 #### [place] [address] [address] [place], [place] #### VD25H #### [facility] [address] [place] [address] MCH Entitic mass (RBC) 29.4 pg Normal 26.0-34.0 [facility] Comment on above: Performed By: #### H EMDF, PT, BMP3M, PHOS3, MG3, CK3 #### [place] [address] [address] [place] #### VD25H #### [facility] [address] [place] [address] MCHC mass conc (RBC) 33.8 % Normal 32.0-36.0 [facility] Comment on above: Performed By: #### H EMDF, PT, BMP3M, PHOS3, MG3, CK3 #### [address] #### VD25H #### [facility] [address] [facility] [place] [address] MCV Entitic volume (RBC) 86.9 fL Normal 80.0-98.0 [facility] Comment on above: Performed By: #### H EMDF, PT, BMP3M, PHOS3, MG3, CK3 #### [address] #### VD25H #### [facility] [address] [facility] [place] [address] Platelet mean volume Entitic volume (Bld) 8.3 fL Normal 7.4-10.4 [facility] Comment on above: Performed By: #### H EMDF, PT, BMP3M, PHOS3, MG3, CK3 #### [address] #### VD25H #### [facility] [address] [facility] [place] [address] Platelets #/vol (Bld) 360 10*3/uL Normal 140-440 [facility] Comment on above: Performed By: #### H EMDF, PT, BMP3M, PHOS3, MG3, CK3 #### [address] #### VD25H #### [facility] [address] [place] [address] RBC #/vol (Bld) 3.61 10*6/uL Low 4.40-5.90 [facility] Comment on above: Performed By: #### H EMDF, PT, BMP3M, PHOS3, MG3, CK3 #### [address] #### VD25H #### [facility] [address] [place] [address] WBC #/vol (Bld) 14.7 10*3/uL High 3.6-10.7 [facility] Comment on above: Performed By: #### H EMDF, PT, BMP3M, PHOS3, MG3, CK3 #### [address] #### VD25H #### [address] [place] [address] Magnesiumon 07-25-2018 Magnesium mass conc 2.1 mg/dL Normal 1.6-2.3 [facility] Comment on above: Performed By: #### H EMDF, PT, BMP3M, PHOS3, MG3, CK3 #### [address] #### VD25H #### [facility] [address] [place] [address] Manual Diffon 07-25-2018 Abs Baso Cnt 0.1 10*3/uL Normal 0.0-0.2 [facility] Comment on above: Performed By: #### H EMDF, PT, BMP3M, PHOS3, MG3, CK3 #### [address] #### VD25H #### [facility] [address] [place] [address] Abs Neutrophile Cnt 12.9 10*3/uL High 2.2-8.2 [facility] Comment on above: Performed By: #### H EMDF, PT, BMP3M, PHOS3, MG3, CK3 #### [facility] [address] [place], [place] #### VD25H #### [facility] [address] [place] [address] Anisocytosis Ql (Bld) Slight Normal [facility] Comment on above: Performed By: #### H EMDF, PT, BMP3M, PHOS3, MG3, CK3 #### [facility] [address] [place], [place] #### VD25H #### [facility] [address] [place] [address] Bands 4 % High 0-3 [facility] Comment on above: Performed By: #### H EMDF, PT, BMP3M, PHOS3, MG3, CK3 #### [place] [address] [address] [place], [place] #### VD25H #### [facility] [address] [place] [address] Basophils/100 WBC (Bld) 1 % Normal 0-2 [facility] Comment on above: Performed By: #### H EMDF, PT, BMP3M, PHOS3, MG3, CK3 #### [facility] [address], [place] #### VD25H #### [facility] [address] [place] [address] Eosinophils #/vol (Bld) 0.6 10*3/uL High 0.0-0.5 [facility] Comment on above: Performed By: #### H EMDF, PT, BMP3M, PHOS3, MG3, CK3 #### [address] [place], [place] #### VD25H #### [facility] [address] [place] [address] Eosinophils/100 WBC (Bld) 4 % Normal 1-6 [facility] Comment on above: Performed By: #### H EMDF, PT, BMP3M, PHOS3, MG3, CK3 #### [facility] [address] [place] #### VD25H #### [facility] [address] [place] [address] Lymphocytes #/vol (Bld) 0.1 10*3/uL Low 1.1-4.5 [facility] Comment on above: Performed By: #### H EMDF, PT, BMP3M, PHOS3, MG3, CK3 #### [address] #### VD25H #### [facility] [address] [place] [address] Lymphocytes/100 WBC (Bld) 1 % Low 20-40 [facility] Comment on above: Performed By: #### H EMDF, PT, BMP3M, PHOS3, MG3, CK3 #### [address] #### VD25H #### [facility] [address] [place] [address] Macrocytosis Slight Normal [facility] Comment on above: Performed By: #### H EMDF, PT, BMP3M, PHOS3, MG3, CK3 #### [address] #### VD25H #### [facility] [address] [place] [address] Metamyelocytes 2 % Abnormal <1 [facility] Comment on above: Performed By: #### H EMDF, PT, BMP3M, PHOS3, MG3, CK3 #### [address] #### VD25H #### [facility] [address] [place] [address] Microcytosis Slight Normal [facility] Comment on above: Performed By: #### H EMDF, PT, BMP3M, PHOS3, MG3, CK3 #### [facility] [address] [place] #### VD25H #### [facility] [address] [place] [address] Monocytes #/vol (Bld) 0.6 10*3/uL Normal 0.2-1.1 [facility] Comment on above: Performed By: #### H EMDF, PT, BMP3M, PHOS3, MG3, CK3 #### [place] [address] [place], [place] #### VD25H #### [facility] [address] [place] [address] Monocytes/100 WBC (Bld) 4 % Normal 2-10 [facility] Comment on above: Performed By: #### H EMDF, PT, BMP3M, PHOS3, MG3, CK3 #### [place] [address] [place] #### VD25H #### [facility] [address] [place] [address] RBC morphology finding Nom (Bld) ABNORMAL Normal [facility] Comment on above: Performed By: #### H EMDF, PT, BMP3M, PHOS3, MG3, CK3 #### [place] [address] [place], [place] #### VD25H #### [facility] [address] [place] [address] Seg Neutrophils 84 % High 40-80 [facility] Comment on above: Performed By: #### H EMDF, PT, BMP3M, PHOS3, MG3, CK3 #### [place] [place] #### VD25H #### [facility] [address] [place] [address] Cells counted 100 Normal [facility] Comment on above: Performed By: #### H EMDF, PT, BMP3M, PHOS3, MG3, CK3 #### [place] [place] #### VD25H #### [facility] [address] [place] [address] Phosphoruson 07-25-2018 Phosphate mass conc 2.7 mg/dL Normal 2.5-4.5 [facility] Comment on above: Performed By: #### H EMDF, PT, BMP3M, PHOS3, MG3, CK3 #### [place] [address] [place] #### VD25H #### [facility] [address] [place] [address] Triglycerideon 07-25-2018 Triglyceride mass conc 82 mg/dL Normal <150 [facility] Comment on above: Performed By: #### H EMDF, PT, BMP3M, PHOS3, MG3, CK3 #### [address] #### VD25H #### [place] [address] [place] [address] Basic Metabolic Panelon 06-30 Calcium mass conc 8.0 mg/dL Low 8.4-10.4 [facility] Comment on above: Performed By: #### H EMDF, PT, BMP3M, PHOS3, MG3, CK3 #### [address] #### VD25H #### [facility] [address] [place] [address] Anion gap molar conc 9 Normal [facility] Comment on above: Performed By: #### H EMDF, PT, BMP3M, PHOS3, MG3, CK3 #### [address] #### VD25H #### [facility] [address] [place] [address] CO2 molar conc 23 mmol/L Normal 22-30 [facility] Comment on above: Performed By: #### H EMDF, PT, BMP3M, PHOS3, MG3, CK3 #### [address] #### VD25H #### [facility] [address] [place] [address] Creatinine mass conc 0.71 mg/dL Normal 0.52-1.25 [facility] Comment on above: Performed By: #### H EMDF, PT, BMP3M, PHOS3, MG3, CK3 #### [address] #### VD25H #### [facility] [address] [place] [address] GFR/1.73 sq M predicted among blacks MDRD vol rate/area (S/P/Bld) mL/min/{1.73_m2} Normal >60 [facility] Comment on above: Performed By: #### H EMDF, PT, BMP3M, PHOS3, MG3, CK3 #### [address] #### VD25H #### [place] [address] [place] [address] GFR/1.73 sq M predicted among non-blacks MDRD vol rate/area (S/P/Bld) mL/min/{1.73_m2} Normal >60 [facility] Comment on above: Result Comment: Sour ce- MDRD equation with creatinine calibration to IDMS(NKDEP) eGFR not recommended for drug dose adjustment Performed By: #### H EMDF, PT, BMP3M, PHOS3, MG3, CK3 #### [address] #### VD25H #### [facility] [address] [place] [address] Glucose mass conc 160 mg/dL High 70-100 [facility] Comment on above: Performed By: #### H EMDF, PT, BMP3M, PHOS3, MG3, CK3 #### [address] #### VD25H #### [facility] [address] [place] [address] Urea nitrogen mass conc 28 mg/dL High 7-20 [facility] Comment on above: Performed By: #### H EMDF, PT, BMP3M, PHOS3, MG3, CK3 #### [facility] [address] [place] [address] #### VD25H #### [facility] [address] [place] [address] Chloride molar conc 109 mmol/L High 98-107 [facility] Comment on above: Performed By: #### H EMDF, PT, BMP3M, PHOS3, MG3, CK3 #### [facility] [address] [place] #### VD25H #### [facility] [address] [place] [address] Potassium molar conc 3.7 mmol/L Normal 3.5-5.1 [facility] Comment on above: Performed By: #### H EMDF, PT, BMP3M, PHOS3, MG3, CK3 #### [facility] [address] [place] #### VD25H #### [facility] [address] [place] [address] Sodium molar conc 141 mmol/L Normal 135-145 [facility] Comment on above: Performed By: #### H EMDF, PT, BMP3M, PHOS3, MG3, CK3 #### [facility] [address] [place] #### VD25H #### [facility] [address] [place] [address] CR Chest Portableon 07-25-19 19 CR Chest Portable Patient Name: KATHYA HOOPER Diagnostic Radiology Exam Date/Time 07/24/2018 13:12:47 EDT Exam CR Chest Portable Ordering Physician DO WOLFF KATHRYN C Accession Number [id number] CPT4 Codes 20978 () Reason For Exam line placement Report [...] ALFRED Transcribed Date and Time: 07/24/2018 3:10 [facility] CR Chest Portable Patient Name: KATHYA HOOPER Diagnostic Radiology Exam Date/Time 07/24/2018 07:11:26 EDT Exam CR Chest Portable Ordering Physician MARIA EUGENIA PEREZ Accession Number [id number] CPT4 Codes 29385 () Reason For Exam ETT placement Report [...] Transcribed Date and Time: 07/24/2018 7:31 Normal [facility] CULT./ST. RESPIRATORYon 06-30 CULT./ST. RESPIRATORY CULT./ST. RESPIRAT [...] 1 S Trimeth/Sulfa(CHRISTI) <= 20 S Normal [facility] Comment on above: Order Comment: Speci men Source Comment:Endotracheal Performed By: #### H EMDF, PT, BMP3M, PHOS3, MG3, CK3 #### [facility] [address] [place] [address] #### VD25H #### [facility] [address] [place] [address] CULTURE URINEon 07-24-2018 CULTURE URINE 1 Organism [...] 4 S Trimeth/Sulfa(CHRISTI) <= 20 S Normal [facility] Comment on above: Order Comment: Speci men Source Comment:Urine, clean catch Performed By: #### H EMDF, PT, BMP3M, PHOS3, MG3, CK3 #### [employer] [address] [address] #### VD25H #### [facility] [address] [place] [address] Creatinine, Ur Randomon 06-30 Creatinine, Ur Random 49.5 mg/dL Normal No [facility] Comment on above: Performed By: #### H EMDF, PT, BMP3M, PHOS3, MG3, CK3 #### [facility] [address], [place] #### VD25H #### [facility] [address] [place] [address] Glucose,Bedsideon 07-24-2018 Glucose mass conc 124 mg/dL High 70-100 [facility] Comment on above: Result Comment: Test performed by glucose meter. Results may be 10%-15% lower than serum/plasma values. (CLIA ID [id number]) Performed By: #### H EMDF, PT, BMP3M, PHOS3, MG3, CK3 #### [facility] [address] #### VD25H #### [facility] [address] [place] [address] Glucose mass conc 152 mg/dL High 70-100 [facility] Comment on above: Result Comment: Test performed by glucose meter. Results may be 10%-15% lower than serum/plasma values. (CLIA ID [id number]) Performed By: #### H EMDF, PT, BMP3M, PHOS3, MG3, CK3 #### [facility] [employer] [address] [place] [address] #### VD25H #### [facility] [address] [place] [address] Glucose mass conc 149 mg/dL High 70-100 [facility] Comment on above: Result Comment: Test performed by glucose meter. Results may be 10%-15% lower than serum/plasma values. (CLIA ID [id number]) Performed By: #### H EMDF, PT, BMP3M, PHOS3, MG3, CK3 #### [facility] [employer] [address] [place] [address] #### VD25H #### [facility] [address] [place] [address] Hemogram w/ Autodiffon 07-24 Erythrocyte distribution width Ratio (RBC) 13.7 % Normal 11.5-14.5 [facility] Comment on above: Performed By: #### H EMDF, PT, BMP3M, PHOS3, MG3, CK3 #### [place] [address] [place], [place] #### VD25H #### [facility] [address] [place] [address] Hematocrit Volume Fraction (Bld) 31.4 % Low 40.0-52.0 [facility] Comment on above: Performed By: #### H EMDF, PT, BMP3M, PHOS3, MG3, CK3 #### [place] [address] [place] #### VD25H #### [facility] [address] [place] [address] Hemoglobin mass conc (Bld) 10.7 g/dL Low 13.0-18.0 [facility] Comment on above: Performed By: #### H EMDF, PT, BMP3M, PHOS3, MG3, CK3 #### [address] [place], [place] #### VD25H #### [facility] [address] [place] [address] MCH Entitic mass (RBC) 29.4 pg Normal 26.0-34.0 [facility] Comment on above: Performed By: #### H EMDF, PT, BMP3M, PHOS3, MG3, CK3 #### [address] [place], [place] #### VD25H #### [facility] [address] [place] [address] MCHC mass conc (RBC) 33.9 % Normal 32.0-36.0 [facility] Comment on above: Performed By: #### H EMDF, PT, BMP3M, PHOS3, MG3, CK3 #### [facility] [address] [place] #### VD25H #### [facility] [address] [place] [address] MCV Entitic volume (RBC) 86.8 fL Normal 80.0-98.0 [facility] Comment on above: Performed By: #### H EMDF, PT, BMP3M, PHOS3, MG3, CK3 #### [place] [address] [place] #### VD25H #### [facility] [address] [place] [address] Platelet mean volume Entitic volume (Bld) 8.6 fL Normal 7.4-10.4 [facility] Comment on above: Performed By: #### H EMDF, PT, BMP3M, PHOS3, MG3, CK3 #### [address] #### VD25H #### [facility] [address] [place] [address] Platelets #/vol (Bld) 304 10*3/uL Normal 140-440 [facility] Comment on above: Performed By: #### H EMDF, PT, BMP3M, PHOS3, MG3, CK3 #### [address] #### VD25H #### [facility] [address] [place] [address] RBC #/vol (Bld) 3.62 10*6/uL Low 4.40-5.90 [facility] Comment on above: Performed By: #### H EMDF, PT, BMP3M, PHOS3, MG3, CK3 #### [address] #### VD25H #### [facility] [address] [place] [address] WBC #/vol (Bld) 14.0 10*3/uL High 3.6-10.7 [facility] Comment on above: Performed By: #### H EMDF, PT, BMP3M, PHOS3, MG3, CK3 #### [place] [address] [place] #### VD25H #### [facility] [address] [place] [address] Magnesiumon 07-24-2018 Magnesium mass conc 2.2 mg/dL Normal 1.6-2.3 [facility] Comment on above: Performed By: #### H EMDF, PT, BMP3M, PHOS3, MG3, CK3 #### [address] #### VD25H #### [facility] [address] [place] [address] Manual Diffon 07-24-2018 Abs Baso Cnt 0.0 10*3/uL Normal 0.0-0.2 [facility] Comment on above: Performed By: #### H EMDF, PT, BMP3M, PHOS3, MG3, CK3 #### [address] #### VD25H #### [facility] [address] [place] [address] Abs Neutrophile Cnt 12.2 10*3/uL High 2.2-8.2 [facility] Comment on above: Performed By: #### H EMDF, PT, BMP3M, PHOS3, MG3, CK3 #### [place] [address] [place] #### VD25H #### [facility] [address] [place] [address] Eosinophils #/vol (Bld) 0.4 10*3/uL Normal 0.0-0.5 [facility] Comment on above: Performed By: #### H EMDF, PT, BMP3M, PHOS3, MG3, CK3 #### [address] #### VD25H #### [facility] [address] [place] [address] Eosinophils/100 WBC (Bld) 3 % Normal 1-6 [facility] Comment on above: Performed By: #### H EMDF, PT, BMP3M, PHOS3, MG3, CK3 #### [facility] [address] [place] #### VD25H #### [facility] [address] [place] [address] Lymphocytes #/vol (Bld) 1.0 10*3/uL Low 1.1-4.5 [facility] Comment on above: Performed By: #### H EMDF, PT, BMP3M, PHOS3, MG3, CK3 #### [place] [address] [place] #### VD25H #### [facility] [address] [place] [address] Lymphocytes/100 WBC (Bld) 7 % Low 20-40 [facility] Comment on above: Performed By: #### H EMDF, PT, BMP3M, PHOS3, MG3, CK3 #### [place] [address] [place] #### VD25H #### [facility] [address] [place] [address] Monocytes #/vol (Bld) 0.4 10*3/uL Normal 0.2-1.1 [facility] Comment on above: Performed By: #### H EMDF, PT, BMP3M, PHOS3, MG3, CK3 #### [place] [address] [place] #### VD25H #### [facility] [address] [place] [address] Monocytes/100 WBC (Bld) 3 % Normal 2-10 [facility] Comment on above: Performed By: #### H EMDF, PT, BMP3M, PHOS3, MG3, CK3 #### [place] [address] [place] #### VD25H #### [facility] [address] [place] [address] RBC morphology finding Nom (Bld) Normal Normal [facility] Comment on above: Performed By: #### H EMDF, PT, BMP3M, PHOS3, MG3, CK3 #### [facility] [address] [place] #### VD25H #### [facility] [address] [place] [address] Seg Neutrophils 87 % High 40-80 [facility] Comment on above: Performed By: #### H EMDF, PT, BMP3M, PHOS3, MG3, CK3 #### [place] [address] [place] #### VD25H #### [facility] [address] [place] [address] Bands 0 % Normal 0-3 [facility] Comment on above: Performed By: #### H EMDF, PT, BMP3M, PHOS3, MG3, CK3 #### [facility] [address] [place] #### VD25H #### [facility] [address] [place] [address] Basophils/100 WBC (Bld) 0 % Normal 0-2 [facility] Comment on above: Performed By: #### H EMDF, PT, BMP3M, PHOS3, MG3, CK3 #### [place] [address] #### VD25H #### [facility] [address] [place] [address] Cells counted 100 Normal [facility] Comment on above: Performed By: #### H EMDF, PT, BMP3M, PHOS3, MG3, CK3 #### [place] [address] [place] #### VD25H #### [facility] [address] [place] [address] Phosphoruson 07-24-2018 Phosphate mass conc 2.7 mg/dL Normal 2.5-4.5 [facility] Comment on above: Performed By: #### H EMDF, PT, BMP3M, PHOS3, MG3, CK3 #### [place] [address] [place] #### VD25H #### [facility] [address] [place] [address] Triglycerideon 07-24-2018 Triglyceride mass conc 78 mg/dL Normal <150 [facility] Comment on above: Performed By: #### H EMDF, PT, BMP3M, PHOS3, MG3, CK3 #### [place] [address] [place] #### VD25H #### [facility] [address] [place] [address] Urea Nitrogen,Ur Randomon Urea nitrogen mass conc 1199 mg/dL Normal No Range [facility] Comment on above: Performed By: #### H EMDF, PT, BMP3M, PHOS3, MG3, CK3 #### [place] [address] #### VD25H #### [facility] [address] [place] [address] Add on test from HISon 07-23 Add on test from HIS Accepted Normal [facility] Comment on above: Result Comment: Spec imen available & acceptable for analysis. Performed By: #### H EMDF, PT, BMP3M, PHOS3, MG3, CK3 #### [place] [address] [place] #### VD25H #### [facility] [address] [place] [address] Arterial Blood Gaseson 07-23 CO2 molar conc 23.0 mmol/L Normal 23.0-27.0 [facility] Comment on above: Performed By: #### H EMDF, PT, BMP3M, PHOS3, MG3, CK3 #### [address] #### VD25H #### [facility] [address] [place] [address] HCO3 molar conc (Bld) 22.0 mmol/L Normal 21.0-25.0 [facility] Comment on above: Performed By: #### H EMDF, PT, BMP3M, PHOS3, MG3, CK3 #### [place] [address] [place] #### VD25H #### [facility] [address] [place] [address] Hemoglobin mass conc (Bld) 10.9 g/dL Normal ScreenOnly [facility] Comment on above: Performed By: #### H EMDF, PT, BMP3M, PHOS3, MG3, CK3 #### [address] #### VD25H #### [facility] [address] [place] [address] Oxygen ppres (Bld) 102.4 mm[Hg] High 80.0-100.0 [facility] Comment on above: Performed By: #### H EMDF, PT, BMP3M, PHOS3, MG3, CK3 #### [address] #### VD25H #### [facility] [address] [place] [address] Oxygen saturation in Blood 97.7 % Normal 95.0-100.0 [facility] Comment on above: Performed By: #### H EMDF, PT, BMP3M, PHOS3, MG3, CK3 #### [place] [address] [place] #### VD25H #### [facility] [address] [place] [address] pCO2 34.4 mm[Hg] Low 35.0-45.0 [facility] Comment on above: Performed By: #### H EMDF, PT, BMP3M, PHOS3, MG3, CK3 #### [address] #### VD25H #### [facility] [address] [place] [address] pH (Bld) 7.423 Normal 7.350-7.450 [facility] Comment on above: Performed By: #### H EMDF, PT, BMP3M, PHOS3, MG3, CK3 #### [facility] [address] [place] [address] #### VD25H #### [facility] [address] [place] [address] Std Base Excess -1.9 mmol/L Normal -3.0-3.0 [facility] Comment on above: Performed By: #### H EMDF, PT, BMP3M, PHOS3, MG3, CK3 #### [address] [place], [place] #### VD25H #### [facility] [address] [place] [address] FIO2 .30 Normal [facility] Comment on above: Performed By: #### H EMDF, PT, BMP3M, PHOS3, MG3, CK3 #### [address] #### VD25H #### [facility] [address] [place] [address] Basic Metabolic Panelon - Anion gap molar conc 12 Normal [facility] Comment on above: Performed By: #### H EMDF, PT, BMP3M, PHOS3, MG3, CK3 #### [place] [address] [place] #### VD25H #### [facility] [address] [place] [address] Calcium mass conc 7.5 mg/dL Low 8.4-10.4 [facility] Comment on above: Performed By: #### H EMDF, PT, BMP3M, PHOS3, MG3, CK3 #### [address] #### VD25H #### [facility] [address] [place] [address] CO2 molar conc 23 mmol/L Normal 22-30 [facility] Comment on above: Performed By: #### H EMDF, PT, BMP3M, PHOS3, MG3, CK3 #### [facility] [address] [facility], [place] #### VD25H #### [facility] [address] [place] [address] Glucose mass conc 148 mg/dL High 70-100 [facility] Comment on above: Performed By: #### H EMDF, PT, BMP3M, PHOS3, MG3, CK3 #### [place] [address] [facility], [place] #### VD25H #### [facility] [address] [place] [address] Urea nitrogen mass conc 82 mg/dL High 7-20 [facility] Comment on above: Performed By: #### H EMDF, PT, BMP3M, PHOS3, MG3, CK3 #### [place] [address] [facility], [place] #### VD25H #### [facility] [address] [place] [address] Creatinine mass conc 3.01 mg/dL High 0.52-1.25 [facility] Comment on above: Performed By: #### H EMDF, PT, BMP3M, PHOS3, MG3, CK3 #### [place] [address] [facility], [place] #### VD25H #### [facility] [address] [place] [address] GFR/1.73 sq M predicted among blacks MDRD vol rate/area (S/P/Bld) 25.8 mL/min/{1.73_m2} Normal >60 [facility] Comment on above: Performed By: #### H EMDF, PT, BMP3M, PHOS3, MG3, CK3 #### [place] [address] [facility], [place] #### VD25H #### [facility] [address] [place] [address] GFR/1.73 sq M predicted among non-blacks MDRD vol rate/area (S/P/Bld) 21.3 mL/min/{1.73_m2} Normal >60 [facility] Comment on above: Result Comment: Sour ce- MDRD equation with creatinine calibration to IDMS(NKDEP) eGFR not recommended for drug dose adjustment Performed By: #### H EMDF, PT, BMP3M, PHOS3, MG3, CK3 #### [facility] [address] [place] #### VD25H #### [facility] [address] [place] [address] Chloride molar conc 106 mmol/L Normal 98-107 [facility] Comment on above: Performed By: #### H EMDF, PT, BMP3M, PHOS3, MG3, CK3 #### [place] [address] [place] [address] #### VD25H #### [facility] [address] [place] [address] Potassium molar conc 4.2 mmol/L Normal 3.5-5.1 [facility] Comment on above: Performed By: #### H EMDF, PT, BMP3M, PHOS3, MG3, CK3 #### [facility] [address] [facility], [place] #### VD25H #### [facility] [address] [place] [address] Sodium molar conc 141 mmol/L Normal 135-145 [facility] Comment on above: Performed By: #### H EMDF, PT, BMP3M, PHOS3, MG3, CK3 #### [place] [address] [facility] [place] #### VD25H #### [facility] [address] [place] [address] CR Chest Portableon 07-24-19 19 CR Chest Portable Patient Name: KATHYA HOOPER Diagnostic Radiology Exam Date/Time 07/23/2018 07:06:03 EDT Exam CR Chest Portable Ordering Physician MARIA EUGENIA PEREZ Accession Number [id number] CPT4 Codes 94201 () Reason For Exam ETT placement Report [...] Transcribed Date and Time: 07/23/2018 7:58 Normal [facility] Creatinine, Ur Randomon 06-30 Creatinine, Ur Random 56.8 mg/dL Normal No Range [facility] Comment on above: Performed By: #### H EMDF, PT, BMP3M, PHOS3, MG3, CK3 #### [facility] [address] [place] [address] #### VD25H #### [facility] [address] [place] [address] Glucose,Bedsideon 07-23-2018 Glucose mass conc 116 mg/dL High 70-[address] [email or web address] Comment on above: Result Comment: Test performed by glucose meter. Results may be 10%-15% lower than serum/plasma values. (CLIA ID [id number]) Performed By: #### H EMDF, PT, BMP3M, PHOS3, MG3, CK3 #### [facility] [address] [place] [address] #### VD25H #### [facility] [address] [place] [address] Glucose mass conc 139 mg/dL High 70-[address] [email or web address] Comment on above: Result Comment: Test performed by glucose meter. Results may be 10%-15% lower than serum/plasma values. (CLIA ID [id number]) Performed By: #### H EMDF, PT, BMP3M, PHOS3, MG3, CK3 #### [address] #### VD25H #### [facility] [address] [place] [address] Glucose mass conc 140 mg/dL High 70-100 [facility] Comment on above: Result Comment: Test performed by glucose meter. Results may be 10%-15% lower than serum/plasma values. (CLIA ID [id number]) Performed By: #### H EMDF, PT, BMP3M, PHOS3, MG3, CK3 #### [address] #### [id number] #### [facility] [address] [place] [address] Glucose mass conc 140 mg/dL High 70-100 [facility] Comment on above: Result Comment: Test performed by glucose meter. Results may be 10%-15% lower than serum/plasma values. (CLIA ID [id number]) Performed By: #### H EMDF, PT, BMP3M, PHOS3, MG3, CK3 #### [address] #### VD25H #### [facility] [address] [place] [address] Hemogram w/ Autodiffon 07-23 Abs Baso Cnt 0.0 10*3/uL Normal 0.0-0.2 [facility] Comment on above: Performed By: #### H EMDF, PT, BMP3M, PHOS3, MG3, CK3 #### [address] #### VD25H #### [facility] [address] [place], [place] Abs Neutrophile Cnt 16.2 10*3/uL High 1.8-7.0 [facility] Comment on above: Performed By: #### H EMDF, PT, BMP3M, PHOS3, MG3, CK3 #### [facility] [address] [place], [place] #### VD25H #### [facility] [address] [place] [address] Basophils/100 WBC (Bld) 0.3 % Normal 0.0-2.0 [facility] Comment on above: Performed By: #### H EMDF, PT, BMP3M, PHOS3, MG3, CK3 #### [place] [address] [place], [place] #### VD25H #### [facility] [address] [place] [address] Eosinophils #/vol (Bld) 0.2 10*3/uL Normal 0.0-0.5 [facility] Comment on above: Performed By: #### H EMDF, PT, BMP3M, PHOS3, MG3, CK3 #### [address] #### VD25H #### [facility] [address] [place] [address] Eosinophils/100 WBC (Bld) 1.2 % Normal 1.0-6.0 [facility] Comment on above: Performed By: #### H EMDF, PT, BMP3M, PHOS3, MG3, CK3 #### [address] #### VD25H #### [facility] [address] [place] [address] Erythrocyte distribution width Ratio (RBC) 13.9 % Normal 11.5-14.5 [facility] Comment on above: Performed By: #### H EMDF, PT, BMP3M, PHOS3, MG3, CK3 #### [address] #### VD25H #### [facility] [address] [place] [address] Granulocytes/100 WBC (Bld) 86.8 % High 40.0-80.0 [facility] Comment on above: Performed By: #### H EMDF, PT, BMP3M, PHOS3, MG3, CK3 #### [facility] [address] [place], [place] #### VD25H #### [facility] [address] [place] [address] Hematocrit Volume Fraction (Bld) 26.7 % Low 40.0-52.0 [facility] Comment on above: Performed By: #### H EMDF, PT, BMP3M, PHOS3, MG3, CK3 #### [facility] [address] [place], [place] #### VD25H #### [facility] [address] [place] [address] Hemoglobin mass conc (Bld) 8.9 g/dL Low 13.0-18.0 [facility] Comment on above: Performed By: #### H EMDF, PT, BMP3M, PHOS3, MG3, CK3 #### [facility] [address] [place], [place] #### VD25H #### [facility] [address] [place] [address] Lymphocytes #/vol (Bld) 1.2 10*3/uL Normal 1.0-4.3 [facility] Comment on above: Performed By: #### H EMDF, PT, BMP3M, PHOS3, MG3, CK3 #### [facility] [address] [place], [place] #### VD25H #### [facility] [address] [place] [address] Lymphocytes/100 WBC (Bld) 6.6 % Low 20.0-40.0 [facility] Comment on above: Performed By: #### H EMDF, PT, BMP3M, PHOS3, MG3, CK3 #### [facility] [address] [place], [place] #### VD25H #### [facility] [address] [place] [address] MCH Entitic mass (RBC) 29.5 pg Normal 26.0-34.0 [facility] Comment on above: Performed By: #### H EMDF, PT, BMP3M, PHOS3, MG3, CK3 #### [place] [address] [address] [place], [place] #### VD25H #### [facility] [address] [place] [address] MCHC mass conc (RBC) 33.5 % Normal 32.0-36.0 [facility] Comment on above: Performed By: #### H EMDF, PT, BMP3M, PHOS3, MG3, CK3 #### [address] #### VD25H #### [place] [address] [place] [address] MCV Entitic volume (RBC) 87.9 fL Normal 80.0-98.0 [facility] Comment on above: Performed By: #### H EMDF, PT, BMP3M, PHOS3, MG3, CK3 #### [address] #### VD25H #### [facility] [address] [place] [address] Monocytes #/vol (Bld) 1.0 10*3/uL High 0.0-0.8 [facility] Comment on above: Performed By: #### H EMDF, PT, BMP3M, PHOS3, MG3, CK3 #### [address] #### VD25H #### [place] [address] [place] [address] Monocytes/100 WBC (Bld) 5.1 % Normal 2.0-10.0 [facility] Comment on above: Performed By: #### H EMDF, PT, BMP3M, PHOS3, MG3, CK3 #### [address] #### VD25H #### [facility] [address] [place] [address] Platelet mean volume Entitic volume (Bld) 8.2 fL Normal 7.4-10.4 [facility] Comment on above: Performed By: #### H EMDF, PT, BMP3M, PHOS3, MG3, CK3 #### [address] #### VD25H #### [facility] [address] [place] [address] Platelets #/vol (Bld) 294 10*3/uL Normal 140-440 [facility] Comment on above: Performed By: #### H EMDF, PT, BMP3M, PHOS3, MG3, CK3 #### [address] #### VD25H #### [place] [address] [place] [address] RBC #/vol (Bld) 3.03 10*6/uL Low 4.40-5.90 [facility] Comment on above: Performed By: #### H EMDF, PT, BMP3M, PHOS3, MG3, CK3 #### [address] #### VD25H #### [place] [address] [place] [address] WBC #/vol (Bld) 18.7 10*3/uL High 3.6-10.7 [facility] Comment on above: Performed By: #### H EMDF, PT, BMP3M, PHOS3, MG3, CK3 #### [address] #### VD25H #### [facility] [address] [place] [address] LDHon 07-23-2018 LDH 342 U/L High 65-175 [facility] Comment on above: Performed By: #### H EMDF, PT, BMP3M, PHOS3, MG3, CK3 #### [facility] [address] [place] #### VD25H #### [facility] [address] [place] [address] Magnesiumon 07-23-2018 Magnesium mass conc 2.5 mg/dL High 1.6-2.3 [facility] Comment on above: Performed By: #### H EMDF, PT, BMP3M, PHOS3, MG3, CK3 #### [place] [address] [address] [place], [place] #### VD25H #### [facility] [address] [place] [address] Phosphoruson 07-23-2018 Phosphate mass conc 4.5 mg/dL Normal 2.5-4.5 [facility] Comment on above: Performed By: #### H EMDF, PT, BMP3M, PHOS3, MG3, CK3 #### [place] [address] [address] [place], [place] #### VD25H #### [facility] [address] [place] [address] Protein, Total Body Fluidon 07-23-2018 Protein,Total-Body Fld 2.7 g/dL Normal No Range [facility] Comment on above: Performed By: #### H EMDF, PT, BMP3M, PHOS3, MG3, CK3 #### [place] [address] [address] [place] #### VD25H #### [facility] [address] [place] [address] Triglycerideon 07-23-2018 Triglyceride mass conc 63 mg/dL Normal <150 [facility] Comment on above: Performed By: #### H EMDF, PT, BMP3M, PHOS3, MG3, CK3 #### [place] [address] [address] [facility], [place] #### VD25H #### [facility] [address] [place] [address] Urea Nitrogen,Ur Randomon Urea nitrogen mass conc 677 mg/dL Normal No Range [facility] Comment on above: Performed By: #### H EMDF, PT, BMP3M, PHOS3, MG3, CK3 #### [address] [place], [place] #### VD25H #### [facility] [address] [place] [address] Urinalysis,Macroon 9 Appearance Nom (U) cloudy Normal Clear [facility] Comment on above: Performed By: #### H EMDF, PT, BMP3M, PHOS3, MG3, CK3 #### [place] [address] [address] [place] #### VD25H #### [facility] [address] [place] [address] Bilirubin,Ur Negative Normal Negative [facility] Comment on above: Performed By: #### H EMDF, PT, BMP3M, PHOS3, MG3, CK3 #### [address] #### VD25H #### [facility] [address] [place] [address] Color Nom (U) dk.yel Normal Lt. Yellow [facility] Comment on above: Performed By: #### H EMDF, PT, BMP3M, PHOS3, MG3, CK3 #### [address] #### VD25H #### [facility] [address] [place] [address] Glucose Ql (U) NORM Normal Negative [facility] Comment on above: Performed By: #### H EMDF, PT, BMP3M, PHOS3, MG3, CK3 #### [address] #### VD25H #### [facility] [address] [place] [address] Ketone,Urine Negative Normal Negative [facility] Comment on above: Performed By: #### H EMDF, PT, BMP3M, PHOS3, MG3, CK3 #### [address] [place], [place] #### VD25H #### [facility] [address] [place] [address] Nitrite Ql (U) Negative Normal Negative [facility] Comment on above: Performed By: #### H EMDF, PT, BMP3M, PHOS3, MG3, CK3 #### [place] [address] [address] [place] #### VD25H #### [facility] [address] [place] [address] Occult Blood,Ur 250 {RBC}/uL Normal Negative [facility] Comment on above: Performed By: #### H EMDF, PT, BMP3M, PHOS3, MG3, CK3 #### [address] [place], [place] #### VD25H #### [facility] [address] [place] [address] pH (U) 5.0 Normal 5.0-8.0 [facility] Comment on above: Performed By: #### H EMDF, PT, BMP3M, PHOS3, MG3, CK3 #### [address] [place], [place] #### VD25H #### [facility] [address] [place] [address] Protein mass conc (U) 75 mg/dL Normal Negative [facility] Comment on above: Performed By: #### H EMDF, PT, BMP3M, PHOS3, MG3, CK3 #### [place] [address] [address] [place], [place] #### VD25H #### [facility] [address] [place] [address] Specific [place],Urine 1.015 Normal 1.005-1.030 [facility] Comment on above: Performed By: #### H EMDF, PT, BMP3M, PHOS3, MG3, CK3 #### [place] [address] [address] [place] #### VD25H #### [facility] [address] [place] [address] Urobilinogen Qn (U) NORM Normal 0-1 [facility] Comment on above: Performed By: #### H EMDF, PT, BMP3M, PHOS3, MG3, CK3 #### [address] [place], [place] #### VD25H #### [facility] [address] [place] [address] WBC #/vol (Bld) 2 + Normal Negative [facility] Comment on above: Performed By: #### H EMDF, PT, BMP3M, PHOS3, MG3, CK3 #### [address] #### VD25H #### [place] [address] [place] [address] Urinalysis,Microscopicon Bacteria LM.HPF #/area (Urine sed) Moderate (6-50) Normal Negative [facility] Comment on above: Performed By: #### H EMDF, PT, BMP3M, PHOS3, MG3, CK3 #### [address] #### VD25H #### [facility] [address] [place] [address] Epithelial cells LM.HPF #/area (Urine sed) 0 - 2 Normal 3-5 [facility] Comment on above: Performed By: #### H EMDF, PT, BMP3M, PHOS3, MG3, CK3 #### [address] #### VD25H #### [facility] [address] [place] [address] RBC LM.HPF #/area (Urine sed) /[HPF] Normal 0-2 [facility] Comment on above: Performed By: #### H EMDF, PT, BMP3M, PHOS3, MG3, CK3 #### [address] #### VD25H #### [facility] [address] [place] [address] Volume,Urine 8-12 ml Normal [facility] Comment on above: Performed By: #### H EMDF, PT, BMP3M, PHOS3, MG3, CK3 #### [facility] [address] [place], [place] #### VD25H #### [facility] [address] [place] [address] WBC LM.HPF #/area (Urine sed) 26 - 50 Normal 0-5 [facility] Comment on above: Performed By: #### H EMDF, PT, BMP3M, PHOS3, MG3, CK3 #### [facility] [address] [place] #### VD25H #### [facility] [address] [place] [address] VL Venous Duplex US Lower Ex t Bilateralon 07-23-2018 VL Venous Duplex US Lower Ext Bilateral Patient Name: KATHYA HOOPER Ultrasound Exam Date/Time 07/23/2018 11:16:11 EDT Exam VL Venous Duplex US Lower Ext Bilateral Ordering Physician ETIENNE MARTÍNEZ JULIE Accession Number [id number] CPT4 Codes 57353 () Reason For Exam edema Report [facility] --- Lower Extremity Venous Duplex Report Patient Name: Kathya Hooper : 1955 Study Date: 07/23/2018 [place] (63yrs) Age: 63 Account: [id number] Gender: M Loc: [id number] BP: Ordering: Yesenia Martínez Technologist: Ordering Physician: Yesenia Martínez Hoop Riveting Machine Operator: León Chaidez T, [facility] Interpreting Physician: Vamsi York MD --- Location: [facility] --- INDICATIONS: Edema. bilateral calf [...] performed. The images were obtained using a [employer] E9 vascular ultrasound machine. --- VENOUS FLOW [...] --+ Electronically signed by: Vamsi York MD [id number] Final Dictated: 07/23/2018 3:00 pm Dictating Physician: VAMSI YORK Signed Date and Time: 07/23/2018 3:00 pm Signed by: VAMSI YORK Normal [facility] Vancomycin Troughon 07-24-19 Vancomycin Trough 10.8 ug/mL Low 15.0-20.0 [facility] Comment on above: Result Comment: . Performed By: #### H EMDF, PT, BMP3M, PHOS3, MG3, CK3 #### [address] #### VD25H #### [facility] [address] [place] [address] Basic Metabolic Panelon 06-30 Calcium mass conc 7.9 mg/dL Low 8.4-10.4 [facility] Comment on above: Performed By: #### H EMDF, PT, BMP3M, PHOS3, MG3, CK3 #### [address] #### VD25H #### [facility] [address] [place] [address] Anion gap molar conc 11 Normal [facility] Comment on above: Performed By: #### H EMDF, PT, BMP3M, PHOS3, MG3, CK3 #### [address] #### VD25H #### [facility] [address] [place] [address] CO2 molar conc 28 mmol/L Normal 22-30 [facility] Comment on above: Performed By: #### H EMDF, PT, BMP3M, PHOS3, MG3, CK3 #### [facility] [address] [place] #### VD25H #### [facility] [address] [place] [address] Glucose mass conc 134 mg/dL High 70-100 [facility] Comment on above: Performed By: #### H EMDF, PT, BMP3M, PHOS3, MG3, CK3 #### [place] [address] [address] [place] #### VD25H #### [facility] [address] [place] [address] Urea nitrogen mass conc 51 mg/dL High 7-20 [facility] Comment on above: Performed By: #### H EMDF, PT, BMP3M, PHOS3, MG3, CK3 #### [address] #### VD25H #### [facility] [address] [place] [address] Creatinine mass conc 1.57 mg/dL High 0.52-1.25 [facility] Comment on above: Performed By: #### H EMDF, PT, BMP3M, PHOS3, MG3, CK3 #### [place] [address] [address] [place], [place] #### VD25H #### [facility] [address] [place] [address] GFR/1.73 sq M predicted among blacks MDRD vol rate/area (S/P/Bld) 54.6 mL/min/{1.73_m2} Normal >60 [facility] Comment on above: Performed By: #### H EMDF, PT, BMP3M, PHOS3, MG3, CK3 #### [place] [address] [address] [place] #### VD25H #### [facility] [address] [place] [address] GFR/1.73 sq M predicted among non-blacks MDRD vol rate/area (S/P/Bld) 45.1 mL/min/{1.73_m2} Normal >60 [facility] Comment on above: Result Comment: Sour ce- MDRD equation with creatinine calibration to IDMS(NKDEP) eGFR not recommended for drug dose adjustment Performed By: #### H EMDF, PT, BMP3M, PHOS3, MG3, CK3 #### [place] [address] [address] [place] #### VD25H #### [facility] [address] [place] [address] Chloride molar conc 107 mmol/L Normal 98-107 [facility] Comment on above: Performed By: #### H EMDF, PT, BMP3M, PHOS3, MG3, CK3 #### [place] [address] [address] [place] #### VD25H #### [facility] [address] [place] [address] Potassium molar conc 3.8 mmol/L Normal 3.5-5.1 [facility] Comment on above: Performed By: #### H EMDF, PT, BMP3M, PHOS3, MG3, CK3 #### [place] [address] [address] [place] #### VD25H #### [facility] [address] [place] [address] Sodium molar conc 146 mmol/L High 135-145 [facility] Comment on above: Performed By: #### H EMDF, PT, BMP3M, PHOS3, MG3, CK3 #### [place] [address] [address] [place] #### VD25H #### [facility] [address] [place] [address] CR Abdomen APon 07-22-2018 CR Abdomen AP Patient Name: KATHYA HOOPER Diagnostic Radiology Exam Date/Time 07/22/2018 08:02:02 EDT Exam CR Abdomen AP Ordering Physician MARIA EUGENIA PEREZ Accession Number [id number] CPT4 Codes 30816 () Reason For Exam ileus Report Supine [...] Transcribed Date and Time: 07/22/2018 9:28 Normal [facility] CR Chest Portableon 07-23-19 CR Chest Portable Patient Name: KATHYA HOOPER Diagnostic Radiology Exam Date/Time 07/22/2018 16:32:15 EDT Exam CR Chest Portable Ordering Physician MD NATE, [facility] Accession Number [id number] CPT4 Codes 86005 () Reason For Exam Thoracentesis Report Clinical [...] Transcribed Date and Time: 07/22/2018 6:46 Normal [facility] CR Chest Portable Patient Name: KATHYA HOOPER Diagnostic Radiology Exam Date/Time 07/22/2018 06:49:22 EDT Exam CR Chest Portable Ordering Physician MARIA EUGENIA PEREZ Accession Number [id number] CPT4 Codes 65920 () Reason For Exam ETT placement Report [...] Transcribed Date and Time: 07/22/2018 9:31 Normal [facility] CULTURE AND STAIN - FLUIDon 07-22-2018 CULTURE AND STAIN - FLUID CULTURE & STAIN - FLUID --> Status: F No growth at 5 days. STAIN GRAM --> Status: F Moderate polymorphonuclear cells/lpf. Moderate mononuclear cells/lpf No organisms seen. Cytocentrifugation performed. Moderate mononuclear cells/lpf No organisms seen. Cytocentrifugation performed. Normal [facility] Comment on above: Order Comment: Speci men Source Comment:Body Fluid Performed By: #### H EMDF, PT, BMP3M, PHOS3, MG3, CK3 #### [facility] [address] [place], [place] #### VD25H #### [facility] [address] [place] [address] Cell Count,Body Fluidon 06-30 Nucleated Cells 259 {cells}/uL Normal [facility] Comment on above: Performed By: #### H EMDF, PT, BMP3M, PHOS3, MG3, CK3 #### [facility] [address] [place], [place] #### VD25H #### [facility] [address] [place] [address] RBC Count Body Fld 123 {RBC}/uL Normal [facility] Comment on above: Performed By: #### H EMDF, PT, BMP3M, PHOS3, MG3, CK3 #### [place] [address] [address] [place] #### VD25H #### [facility] [address] [place] [address] Fluid Type thoracentesis Normal [facility] Comment on above: Performed By: #### H EMDF, PT, BMP3M, PHOS3, MG3, CK3 #### [place] [address] [address] [place] #### VD25H #### [facility] [address] [place] [address] Glucose, Body Fluidon 2018 Fluid Type Thoracentesis Normal [facility] Comment on above: Performed By: #### H EMDF, PT, BMP3M, PHOS3, MG3, CK3 #### [place] [address] [address] [facility], [place] #### VD25H #### [facility] [address] [place] [address] Glucose, Body Fluid 136 mg/dL Normal No Range [facility] Comment on above: Performed By: #### H EMDF, PT, BMP3M, PHOS3, MG3, CK3 #### [place] [address] [address] [place] #### VD25H #### [facility] [address] [place] [address] Glucose,Bedsideon 07-22-2018 Glucose mass conc 142 mg/dL High 70-100 [facility] Comment on above: Result Comment: Test performed by glucose meter. Results may be 10%-15% lower than serum/plasma values. (CLIA ID [id number]) Performed By: #### H EMDF, PT, BMP3M, PHOS3, MG3, CK3 #### [facility] [address] [place] [address] #### VD25H #### [facility] [address] [place] [address] Glucose mass conc 127 mg/dL High 70-100 [facility] Comment on above: Result Comment: Test performed by glucose meter. Results may be 10%-15% lower than serum/plasma values. (CLIA ID [id number]) Performed By: #### H EMDF, PT, BMP3M, PHOS3, MG3, CK3 #### [facility] [address] [place] [id number] #### VD25H #### [facility] [address] [place] [address] Glucose mass conc 139 mg/dL High 70-100 [facility] Comment on above: Result Comment: Test performed by glucose meter. Results may be 10%-15% lower than serum/plasma values. (CLIA ID [id number]) Performed By: #### H EMDF, PT, BMP3M, PHOS3, MG3, CK3 #### [facility] [address] [place] [address] #### VD25H #### [facility] [address] [place] [address] Glucose mass conc 124 mg/dL High 70-100 [facility] Comment on above: Result Comment: Test performed by glucose meter. Results may be 10%-15% lower than serum/plasma values. (CLIA ID [id number]) Performed By: #### H EMDF, PT, BMP3M, PHOS3, MG3, CK3 #### [address] #### VD25H #### [facility] [address] [place] [address] Glucose mass conc 128 mg/dL High 70-100 [facility] Comment on above: Result Comment: Test performed by glucose meter. Results may be 10%-15% lower than serum/plasma values. (CLIA ID [id number]) Performed By: #### H EMDF, PT, BMP3M, PHOS3, MG3, CK3 #### [address] #### VD25H #### [facility] [address] [place] [address] Glucose mass conc 113 mg/dL High 70-100 [facility] Comment on above: Result Comment: Test performed by glucose meter. Results may be 10%-15% lower than serum/plasma values. (CLIA ID [id number]) Performed By: #### H EMDF, PT, BMP3M, PHOS3, MG3, CK3 #### [address] #### VD25H #### [facility] [address] [place] [address] Hemogram w/ Autodiffon 07-22 Abs Baso Cnt 0.1 10*3/uL Normal 0.0-0.2 [facility] Comment on above: Performed By: #### H EMDF, PT, BMP3M, PHOS3, MG3, CK3 #### [address] #### VD25H #### [facility] [address] [place] [address] Abs Neutrophile Cnt 15.2 10*3/uL High 1.8-7.0 [facility] Comment on above: Performed By: #### H EMDF, PT, BMP3M, PHOS3, MG3, CK3 #### [address] #### VD25H #### [facility] [address] [place] [address] Basophils/100 WBC (Bld) 0.6 % Normal 0.0-2.0 [facility] Comment on above: Performed By: #### H EMDF, PT, BMP3M, PHOS3, MG3, CK3 #### [facility] [address] [place] #### VD25H #### [facility] [address] [place] [address] Eosinophils #/vol (Bld) 0.2 10*3/uL Normal 0.0-0.5 [facility] Comment on above: Performed By: #### H EMDF, PT, BMP3M, PHOS3, MG3, CK3 #### [address] #### VD25H #### [facility] [address] [place] [address] Eosinophils/100 WBC (Bld) 0.9 % Low 1.0-6.0 [facility] Comment on above: Performed By: #### H EMDF, PT, BMP3M, PHOS3, MG3, CK3 #### [address] [place], [place] #### VD25H #### [facility] [address] [place] [address] Erythrocyte distribution width Ratio (RBC) 13.9 % Normal 11.5-14.5 [facility] Comment on above: Performed By: #### H EMDF, PT, BMP3M, PHOS3, MG3, CK3 #### [address] #### VD25H #### [facility] [address] [place] [address] Granulocytes/100 WBC (Bld) 88.8 % High 40.0-80.0 [facility] Comment on above: Performed By: #### H EMDF, PT, BMP3M, PHOS3, MG3, CK3 #### [address] [place], [place] #### VD25H #### [facility] [address] [place] [address] Hematocrit Volume Fraction (Bld) 31.6 % Low 40.0-52.0 [facility] Comment on above: Performed By: #### H EMDF, PT, BMP3M, PHOS3, MG3, CK3 #### [address] [place], [place] #### VD25H #### [facility] [address] [place] [address] Hemoglobin mass conc (Bld) 10.9 g/dL Low 13.0-18.0 [facility] Comment on above: Performed By: #### H EMDF, PT, BMP3M, PHOS3, MG3, CK3 #### [address] #### VD25H #### [facility] [address] [place] [address] Lymphocytes #/vol (Bld) 1.1 10*3/uL Normal 1.0-4.3 [facility] Comment on above: Performed By: #### H EMDF, PT, BMP3M, PHOS3, MG3, CK3 #### [address] #### VD25H #### [facility] [address] [place] [address] Lymphocytes/100 WBC (Bld) 6.2 % Low 20.0-40.0 [facility] Comment on above: Performed By: #### H EMDF, PT, BMP3M, PHOS3, MG3, CK3 #### [address] #### VD25H #### [facility] [address] [place] [address] MCH Entitic mass (RBC) 31.1 pg Normal 26.0-34.0 [facility] Comment on above: Performed By: #### H EMDF, PT, BMP3M, PHOS3, MG3, CK3 #### [address] #### VD25H #### [facility] [address] [place] [address] MCHC mass conc (RBC) 34.6 % Normal 32.0-36.0 [facility] Comment on above: Performed By: #### H EMDF, PT, BMP3M, PHOS3, MG3, CK3 #### [address] #### [id number] #### [facility] [address] [place] [address] MCV Entitic volume (RBC) 89.9 fL Normal 80.0-98.0 [facility] Comment on above: Performed By: #### H EMDF, PT, BMP3M, PHOS3, MG3, CK3 #### [address] #### [id number] #### [facility] [address] [place] [address] Monocytes #/vol (Bld) 0.6 10*3/uL Normal 0.0-0.8 [facility] Comment on above: Performed By: #### H EMDF, PT, BMP3M, PHOS3, MG3, CK3 #### [address] [address] #### VD25H #### [facility] [address] [place] [address] Monocytes/100 WBC (Bld) 3.5 % Normal 2.0-10.0 [facility] Comment on above: Performed By: #### H EMDF, PT, BMP3M, PHOS3, MG3, CK3 #### [address] #### VD25H #### [facility] [address] [place] [address] Platelet mean volume Entitic volume (Bld) 7.9 fL Normal 7.4-10.4 [facility] Comment on above: Performed By: #### H EMDF, PT, BMP3M, PHOS3, MG3, CK3 #### [address] [place], [place] #### VD25H #### [facility] [address] [place] [address] Platelets #/vol (Bld) 299 10*3/uL Normal 140-440 [facility] Comment on above: Performed By: #### H EMDF, PT, BMP3M, PHOS3, MG3, CK3 #### [address] #### VD25H #### [facility] [address] [place] [address] RBC #/vol (Bld) 3.52 10*6/uL Low 4.40-5.90 [facility] Comment on above: Performed By: #### H EMDF, PT, BMP3M, PHOS3, MG3, CK3 #### [address] #### VD25H #### [facility] [address] [place] [address] WBC #/vol (Bld) 17.1 10*3/uL High 3.6-10.7 [facility] Comment on above: Performed By: #### H EMDF, PT, BMP3M, PHOS3, MG3, CK3 #### [address] [address] [address] [place], [place] #### VD25H #### [facility] [address] [place] [address] LDH, Body Fluidon 07-22-2018 LDH, Body Fluid 232 U/L Normal No Range [facility] Comment on above: Performed By: #### H EMDF, PT, BMP3M, PHOS3, MG3, CK3 #### [address] #### VD25H #### [facility] [address] [place] [address] Magnesiumon 07-22-2018 Magnesium mass conc 2.6 mg/dL High 1.6-2.3 [employer] [facility] Comment on above: Performed By: #### H EMDF, PT, BMP3M, PHOS3, MG3, CK3 #### [employer] [facility] [address] [place] [address] #### VD25H #### [facility] [facility] [address] [place] [address] Medical Cytology 9 Medical Cytology [facility] [id number] DEPARTMENT OF PATHOLOGY AND [facility]ATORY MEDICINE [address] [place] [address] FINAL MEDICAL CYTOLOGY REPORT NAME: KATHYA HOOPER : 1955 63 Y M BILLING NO.: [id number] LOCATION: [facility] T2 INPAT T209 PROCEDURE 07/22/2018 DATE: PHYSICIAN: [...] . . . . . 1 [facility] Screened by CYNDI LILLY M.D. The following statement applies to all immunohistochemistry, in situ hybridization, molecular studies, and immunofluorescence testing. The use of one or more reagents in the above tests is regulated as an analyte specific reagent (ASR). These tests were developed and their performance characteristics determined by the clinical laboratories of [facility]. They have not been cleared by the [...] negativity on decalcified specimens. Case reviewed at [facility] [address] [address]. DEPARTMENT OF PATHOLOGY AND LABORATORY MEDICINE [place], [place] Normal [facility] Phosphoruson 07-22-2018 Phosphate mass conc 4.6 mg/dL High 2.5-4.5 [facility] Comment on above: Performed By: #### H EMDF, PT, BMP3M, PHOS3, MG3, CK3 #### [address] #### VD25H #### [facility] [address] [place] [address] Procalcitoninon 07-22-2018 Protein mass conc 0.27 ng/mL Abnormal <0.10 [facility] Comment on above: Result Comment: (Cor rect ref.range is <0.09 ng/mL) Test performed: [facility], [place], [place]. Performed By: #### H EMDF, PT, BMP3M, PHOS3, MG3, CK3 #### [address] #### VD25H #### [facility] [address] [place] [address] Interpretation See Below Normal [facility] Comment on above: Result Comment: PCT <0.50 = Low risk of severe sepsis and/or septic shock. PCT >2.00 = High risk of severe sepsis and/or septic shock. Performed By: #### H EMDF, PT, BMP3M, PHOS3, MG3, CK3 #### [facility] [address] [place] #### VD25H #### [facility] [address] [facility] [place] [address] STAIN ACID-FASTon 07-22-2018 STAIN ACID-FAST STAIN ACID-FAST --> Status: F No acid-fast bacilli seen in smear. - Method: AFB by Kinyoun Stain - Method: AFB by Kinyoun Stain Normal [facility] Comment on above: Performed By: #### H EMDF, PT, BMP3M, PHOS3, MG3, CK3 #### [address] #### VD25H #### [facility] [address] [facility] [place] [address] Triglycerideon 07-22-2018 Triglyceride mass conc 96 mg/dL Normal <150 [facility] Comment on above: Performed By: #### H EMDF, PT, BMP3M, PHOS3, MG3, CK3 #### [address] #### VD25H #### [facility] [address] [facility] [place] [address] US Thora-Aspir Pleura w/ Evelin geon 07-22-2018 US Thora-Aspir Pleura w/ Image Patient Name: KATHYA HOOPER Ultrasound Exam Date/Time 07/22/2018 14:23:28 EDT Exam US Thora-Aspir Pleura w/ Image Ordering Physician MARIA EUGENIA PEREZ Accession Number [id number] CPT4 Codes 38324 () Reason For Exam L thoracentesis Report Reasons for examination: Left pleural effusion. Respiratory insufficiency. Ultrasound was performed of the left hemithorax, localizing the pleural fluid. After obtaining informed consent, sterile preparation, draping, and local anesthetic administration, thoracentesis was performed under direct ultrasonographic guidance with a 5 Georgian Yueh needle/catheter. A total of 300 mL [...] Transcribed Date and Time: 07/22/2018 2:55 Normal [facility] pH,Misc Body Fluidon 019 pH,Misc 7.996 Normal None Available [facility] Comment on above: Performed By: #### H EMDF, PT, BMP3M, PHOS3, MG3, CK3 #### [facility] [address] [place] [address] #### VD25H #### [facility] [address] [place] [address] Arterial Blood Gaseson 07-21 CO2 molar conc 29.8 mmol/L High 23.0-27.0 [facility] Comment on above: Performed By: #### T SGL #### [facility] [address] [place] [address] HCO3 molar conc (Bld) 28.7 mmol/L High 21.0-25.0 [facility] Comment on above: Performed By: #### T SGL #### [address] [address] [place] [address] Hemoglobin mass conc (Bld) 11.7 g/dL Normal ScreenOnly [facility] Comment on above: Performed By: #### T SGL #### [facility] [address] [place] [address] Oxygen ppres (Bld) 144.9 mm[Hg] High 80.0-100.0 [facility] Comment on above: Performed By: #### T SGL #### [facility] [address] [place] [address] Oxygen saturation in Blood 98.4 % Normal 95.0-100.0 [facility] Comment on above: Performed By: #### T SGL #### [facility] [address] [place] [address] pCO2 36.8 mm[Hg] Normal 35.0-45.0 [facility] Comment on above: Performed By: #### T SGL #### [facility] [address] [place] [address] pH (Bld) 7.510 High 7.350-7.450 [facility] Comment on above: Performed By: #### T SGL #### [facility] [address] [place] [address] Std Base Excess 5.5 mmol/L High -3.0-3.0 [facility] Comment on above: Performed By: #### T SGL #### [facility] [address] [place] [address] FIO2 .50 Normal [facility] Comment on above: Performed By: #### T SGL #### [facility] [address] [place] [address] CR Abdomen APon 07-21-2018 CR Abdomen AP Patient Name: KATHYA HOOPER Diagnostic Radiology Exam Date/Time 07/21/2018 06:41:07 EDT Exam CR Abdomen AP Ordering Physician [id number] AGUILERA Accession Number [id number] CPT4 Codes 03822 () Reason For Exam ileus Report Reason [...] Transcribed Date and Time: 07/21/2018 7:23 Normal [facility] CR Chest Portableon 07-22-19 CR Chest Portable Patient Name: KATHYA HOOPER Diagnostic Radiology Exam Date/Time 07/21/2018 06:40:50 EDT Exam CR Chest Portable Ordering Physician MARIA EUGENIA PEREZ Accession Number [id number] CPT4 Codes 90805 () Reason For Exam ETT placement Report [...] NICHOLAS Transcribed Date and Time: 07/21/2018 5:38 [facility] CR Chest Portable Patient Name: KATHYA HOOPER Diagnostic Radiology Exam Date/Time 07/21/2018 01:11:50 EDT Exam CR Chest Portable Ordering Physician MD GRIFFIN NICHOLAS Accession Number [id number] CPT4 Codes 91690 () Reason For Exam s/p bronch Report [...] Transcribed Date and Time: 07/21/2018 1:26 Normal [facility] Comp Metabolic Panelon 07-21 Calcium mass conc 7.9 mg/dL Low 8.4-10.4 [facility] Comment on above: Performed By: #### T SGL #### [facility] [address] [place] [address] ALP enzyme act/vol 85 U/L Normal 38-126 [facility] Comment on above: Performed By: #### T SGL #### [facility] [address] [place] [address] ALT enzyme act/vol 105 U/L High 13-69 [facility] Comment on above: Performed By: #### T SGL #### [facility] [address] [place] [address] Anion gap molar conc 8 Normal [facility] Comment on above: Performed By: #### T SGL #### [facility] [address] [place] [address] AST enzyme act/vol 78 U/L High 15-46 [facility] Comment on above: Performed By: #### T SGL #### [facility] [address] [place] [address] Bilirubin mass conc 1.1 mg/dL Normal 0.2-1.3 [facility] Comment on above: Performed By: #### T SGL #### [facility] [address] [place] [address] CO2 molar conc 33 mmol/L High 22-30 [facility] Comment on above: Performed By: #### T SGL #### [facility] [address] [place] [address] Creatinine mass conc 0.90 mg/dL Normal 0.52-1.25 [facility] Comment on above: Performed By: #### T SGL #### [facility] [address] [place] [address] GFR/1.73 sq M predicted among blacks MDRD vol rate/area (S/P/Bld) mL/min/{1.73_m2} Normal >60 [facility] Comment on above: Performed By: #### T SGL #### [address] [place] [address] GFR/1.73 sq M predicted among non-blacks MDRD vol rate/area (S/P/Bld) mL/min/{1.73_m2} Normal >60 [facility] Comment on above: Result Comment: Sour ce- MDRD equation with creatinine calibration to IDMS(NKDEP) eGFR not recommended for drug dose adjustment Performed By: #### T SGL #### [address] [address] [place] [address] Glucose mass conc 113 mg/dL High 70-100 [facility] Comment on above: Performed By: #### T SGL #### [facility] [address] [place] [address] Protein mass conc 5.6 g/dL Low 6.3-8.2 [facility] Comment on above: Performed By: #### T SGL #### [facility] [address] [place] [address] Urea nitrogen mass conc 28 mg/dL High 7-20 [facility] Comment on above: Performed By: #### T SGL #### [address] [address] [place] [address] Chloride molar conc 104 mmol/L Normal 98-107 [facility] Comment on above: Performed By: #### T SGL #### [address] [place] [address] Potassium molar conc 3.6 mmol/L Normal 3.5-5.1 [facility] Comment on above: Performed By: #### T SGL #### [facility] [address] [place] [address] Sodium molar conc 145 mmol/L Normal 135-[address] [facility] Comment on above: Performed By: #### T SGL #### [facility] [address] [place] [address] Albumin mass conc 2.8 g/dL Low 3.5-5.[address] [facility] Comment on above: Performed By: #### T SGL #### [facility] [address] [place] [address] Glucose,Bedsideon 07-21-2018 Glucose mass conc 124 mg/dL High 70-[address] [facility] Comment on above: Result Comment: Test performed by glucose meter. Results may be 10%-15% lower than serum/plasma values. (CLIA ID [id number]) Performed By: #### H EMDF, PT, BMP3M, PHOS3, MG3, CK3 #### [facility] [address] [place] [address] #### VD25H #### [facility] [address] [place] [address] Glucose mass conc 151 mg/dL High 70-[address] [facility] Comment on above: Result Comment: Test performed by glucose meter. Results may be 10%-15% lower than serum/plasma values. (CLIA ID [id number]) Performed By: #### H EMDF, PT, BMP3M, PHOS3, MG3, CK3 #### [facility] [address] [address] #### VD25H #### [facility] [address] [place] [address] Glucose mass conc 127 mg/dL High 70-[address] [facility] Comment on above: Result Comment: Test performed by glucose meter. Results may be 10%-15% lower than serum/plasma values. (CLIA ID [id number]) Performed By: #### T SGL #### [address] [address] [place] [address] Glucose mass conc 113 mg/dL High 70-100 [facility] Comment on above: Result Comment: Test performed by glucose meter. Results may be 10%-15% lower than serum/plasma values. (CLIA ID [id number]) Performed By: #### A DDON #### [address] [place] [address] Hemogram w/ Autodiffon 07-21 Abs Baso Cnt 0.1 10*3/uL Normal 0.0-0.2 [facility] Comment on above: Performed By: #### T SGL #### [address] [address] Abs Neutrophile Cnt 11.0 10*3/uL High 1.8-7.0 [facility] Comment on above: Performed By: #### T SGL #### [address] [place] [address] Basophils/100 WBC (Bld) 0.5 % Normal 0.0-2.0 [facility] Comment on above: Performed By: #### T SGL #### [address] [address] Eosinophils #/vol (Bld) 0.3 10*3/uL Normal 0.0-0.5 [facility] Comment on above: Performed By: #### T SGL #### [address] [place] [address] Eosinophils/100 WBC (Bld) 1.9 % Normal 1.0-6.0 [facility] Comment on above: Performed By: #### T SGL #### [address] [address] Erythrocyte distribution width Ratio (RBC) 13.7 % Normal 11.5-14.5 [facility] Comment on above: Performed By: #### T SGL #### [address] [address] Granulocytes/100 WBC (Bld) 81.0 % High 40.0-80.0 [facility] Comment on above: Performed By: #### T SGL #### [address] [place] [address] Hematocrit Volume Fraction (Bld) 32.1 % Low 40.0-52.0 [facility] Comment on above: Performed By: #### T SGL #### [address] [place] [address] Hemoglobin mass conc (Bld) 10.7 g/dL Low 13.0-18.0 [facility] Comment on above: Performed By: #### T SGL #### [address] [place] [address] Lymphocytes #/vol (Bld) 1.3 10*3/uL Normal 1.0-4.3 [facility] Comment on above: Performed By: #### T SGL #### [address] [place] [address] Lymphocytes/100 WBC (Bld) 9.8 % Low 20.0-40.0 [facility] Comment on above: Performed By: #### T SGL #### [address] [place] [address] MCH Entitic mass (RBC) 29.0 pg Normal 26.0-34.0 [facility] Comment on above: Performed By: #### T SGL #### [address] [place] [address] MCHC mass conc (RBC) 33.4 % Normal 32.0-36.0 [facility] Comment on above: Performed By: #### T SGL #### [address] [place] [address] MCV Entitic volume (RBC) 86.9 fL Normal 80.0-98.0 [facility] Comment on above: Performed By: #### T SGL #### [address] [place] [address] Monocytes #/vol (Bld) 0.9 10*3/uL High 0.0-0.8 [facility] Comment on above: Performed By: #### T SGL #### [address] [place] [address] Monocytes/100 WBC (Bld) 6.8 % Normal 2.0-10.0 [facility] Comment on above: Performed By: #### T SGL #### [facility] [address] [place] [address] Platelet mean volume Entitic volume (Bld) 7.4 fL Normal 7.4-10.4 [facility] Comment on above: Performed By: #### T SGL #### [facility] [address] [place] [place] [address] Platelets #/vol (Bld) 367 10*3/uL Normal 140-440 [facility] Comment on above: Performed By: #### T SGL #### [facility] [address] [place] [address] RBC #/vol (Bld) 3.69 10*6/uL Low 4.40-5.90 [facility] Comment on above: Performed By: #### T SGL #### [facility] [address] [address] [place] [address] WBC #/vol (Bld) 13.6 10*3/uL High 3.6-10.7 [facility] Comment on above: Performed By: #### T SGL #### [facility] [address] [place] [address] Magnesiumon 07-21-2018 Magnesium mass conc 2.6 mg/dL High 1.6-2.3 [facility] Comment on above: Performed By: #### T SGL #### [facility] [address] [address] [place] [address] Phosphoruson 07-21-2018 Phosphate mass conc 4.2 mg/dL Normal 2.5-4.5 [facility] Comment on above: Performed By: #### T SGL #### [facility] [address] [place] [address] Triglycerideon 07-21-2018 Triglyceride mass conc 105 mg/dL Normal <150 [facility] Comment on above: Performed By: #### T SGL #### [facility] [address] [address] [place] [address] Add on test from HISon 07-20 Add on test from HIS Accepted Normal [facility] Comment on above: Result Comment: Spec imen available & acceptable for analysis. Performed By: #### A DDON #### [facility] [address] [place] [address] Basic Metabolic Panelon 06-30 Calcium mass conc 7.7 mg/dL Low 8.4-10.4 [facility] Comment on above: Performed By: #### A DDON #### [facility] [address] [place] [address] Glucose mass conc 96 mg/dL Normal 70-100 [facility] Comment on above: Performed By: #### A DDON #### [facility] [address] [place] [address] Urea nitrogen mass conc 22 mg/dL High 7-20 [facility] Comment on above: Performed By: #### A DDON #### [address] [place] [address] Anion gap molar conc 10 Normal [facility] Comment on above: Performed By: #### A DDON #### [address] [place] [address] CO2 molar conc 29 mmol/L Normal 22-30 [facility] Comment on above: Performed By: #### A DDON #### [address] [place] [address] Creatinine mass conc 0.87 mg/dL Normal 0.52-1.25 [facility] Comment on above: Performed By: #### A DDON #### [facility] [address] [place] [address] GFR/1.73 sq M predicted among blacks MDRD vol rate/area (S/P/Bld) mL/min/{1.73_m2} Normal >60 [facility] Comment on above: Performed By: #### A DDON #### [facility] [address] [place] GFR/1.73 sq M predicted among non-blacks MDRD vol rate/area (S/P/Bld) mL/min/{1.73_m2} Normal >60 [facility] Comment on above: Result Comment: Sour ce- MDRD equation with creatinine calibration to IDMS(NKDEP) eGFR not recommended for drug dose adjustment Performed By: #### A DDON #### [facility] [address] [place] [address] Potassium molar conc 3.6 mmol/L Normal 3.5-5.1 [facility] Comment on above: Performed By: #### A DDON #### [facility] [address] [place] [address] Chloride molar conc 105 mmol/L Normal 98-107 [facility] Comment on above: Performed By: #### A DDON #### [facility] [address] [place] [address] Sodium molar conc 144 mmol/L Normal 135-145 [facility] Comment on above: Performed By: #### A DDON #### [facility] [address] [place] [address] CR Abdomen APon 07-20-2018 CR Abdomen AP Patient Name: KATHYA HOOPER Diagnostic Radiology Exam Date/Time 07/20/2018 08:39:45 EDT Exam CR Abdomen AP Ordering Physician [id number] JOYA PERRY Accession Number [id number] CPT4 Codes 98389 () Reason For Exam ileus Report Clinical [...] Transcribed Date and Time: 07/20/2018 9:29 Normal [facility] CR Chest Portableon 07-21-19 CR Chest Portable Patient Name: KATHYA HOOPER Diagnostic Radiology Exam Date/Time 07/20/2018 08:39:26 EDT Exam CR Chest Portable Ordering Physician MARIA EUGENIA PEREZ Accession Number [id number] CPT4 Codes 63476 () Reason For Exam ETT placement Report [...] Transcribed Date and Time: 07/20/2018 9:[address] [facility] CT Abdomen/Pelvis w/ Contras ton 07-20-2018 CT Abdomen/Pelvis w/ Contrast Patient Name: KATHYA HOOPER CT Exam Date/Time 07/20/2018 11:30:[address] Abdomen/Pelvis w/ IV Contrast (IV Onl Ordering Physician JOYA ROJAS Accession Number [id number] CPT4 Codes 50175 (CT Abdomen/Pelvis w/ IV Contrast (IV Onl) [...] Dictated: 07/20/2018 1:10 pm Dictating Physician: MD VAUGHN, ELIZABETH Signed Date and Time: 07/20/2018 1:24 pm Signed by: MD MENDES HARLAN Transcribed Date and Time: 07/20/2018 1:[address] [facility] [address] Chest w/ Contraston 07-20 CT Chest w/ Contrast Patient Name: KATHYA RAY CT Exam Date/Time 07/20/2018 11:30:[address] Chest w/ Contrast Ordering Physician JOYA ROJAS Accession Number [id number] CPT4 Codes 44433 (), Q9967 (CT ISOVUE 370MG/[id number]) Reason For Exam SOB, possible pneumonia Report [...] Transcribed Date and Time: 07/20/2018 1:28 Normal [facility] Glucose,Bedsideon 07-20-2018 Glucose mass conc 128 mg/dL High 70-100 [facility] Comment on above: Result Comment: Test performed by glucose meter. Results may be 10%-15% lower than serum/plasma values. (CLIA ID [id number]) Performed By: #### A DDON #### [address] [place] Hemogram w/ Autodiffon 07-20 Abs Baso Cnt 0.1 10*3/uL Normal 0.0-0.2 [facility] Comment on above: Performed By: #### H EMDF, PT, BMP3M, PHOS3, MG3, CK3 #### [address] [place] [place] #### VD25H #### [facility] [address] [place] [address] Abs Neutrophile Cnt 13.0 10*3/uL High 1.8-7.0 [facility] Comment on above: Performed By: #### H EMDF, PT, BMP3M, PHOS3, MG3, CK3 #### [facility] [address] #### VD25H #### [facility] [address] [place] [address] Basophils/100 WBC (Bld) 0.3 % Normal 0.0-2.0 [facility] Comment on above: Performed By: #### H EMDF, PT, BMP3M, PHOS3, MG3, CK3 #### [address] #### VD25H #### [facility] [address] [place] [address] Eosinophils #/vol (Bld) 0.3 10*3/uL Normal 0.0-0.5 [facility] Comment on above: Performed By: #### H EMDF, PT, BMP3M, PHOS3, MG3, CK3 #### [facility] [address] [place], [place] #### VD25H #### [facility] [address] [place] [address] Eosinophils/100 WBC (Bld) 1.9 % Normal 1.0-6.0 [facility] Comment on above: Performed By: #### H EMDF, PT, BMP3M, PHOS3, MG3, CK3 #### [address] [place] #### VD25H #### [facility] [address] [place] [address] Erythrocyte distribution width Ratio (RBC) 13.3 % Normal 11.5-14.5 [facility] Comment on above: Performed By: #### H EMDF, PT, BMP3M, PHOS3, MG3, CK3 #### [address] [place] #### VD25H #### [facility] [address] [place] [address] Granulocytes/100 WBC (Bld) 81.8 % High 40.0-80.0 [facility] Comment on above: Performed By: #### H EMDF, PT, BMP3M, PHOS3, MG3, CK3 #### [address] [place] #### VD25H #### [facility] [address] [place] [address] Hematocrit Volume Fraction (Bld) 33.6 % Low 40.0-52.0 [facility] Comment on above: Performed By: #### H EMDF, PT, BMP3M, PHOS3, MG3, CK3 #### [address] [address] [address] [place], [place] #### VD25H #### [facility] [address] [place] [address] Hemoglobin mass conc (Bld) 11.4 g/dL Low 13.0-18.0 [facility] Comment on above: Performed By: #### H EMDF, PT, BMP3M, PHOS3, MG3, CK3 #### [address] [place], [place] #### VD25H #### [facility] [address] [place] [address] Lymphocytes #/vol (Bld) 1.5 10*3/uL Normal 1.0-4.3 [facility] Comment on above: Performed By: #### H EMDF, PT, BMP3M, PHOS3, MG3, CK3 #### [address] #### VD25H #### [facility] [address] [place] [address] Lymphocytes/100 WBC (Bld) 9.2 % Low 20.0-40.0 [facility] Comment on above: Performed By: #### H EMDF, PT, BMP3M, PHOS3, MG3, CK3 #### [address] #### VD25H #### [facility] [address] [place] [address] MCH Entitic mass (RBC) 29.3 pg Normal 26.0-34.0 [facility] Comment on above: Performed By: #### H EMDF, PT, BMP3M, PHOS3, MG3, CK3 #### [address] #### VD25H #### [facility] [address] [place] [address] MCHC mass conc (RBC) 33.9 % Normal 32.0-36.0 [facility] Comment on above: Performed By: #### H EMDF, PT, BMP3M, PHOS3, MG3, CK3 #### [facility] [address] [place], [place] #### VD25H #### [facility] [address] [place] [address] MCV Entitic volume (RBC) 86.5 fL Normal 80.0-98.0 [facility] Comment on above: Performed By: #### H EMDF, PT, BMP3M, PHOS3, MG3, CK3 #### [place] [address] [address] [place], [place] #### VD25H #### [facility] [address] [place] [address] Monocytes #/vol (Bld) 1.1 10*3/uL High 0.0-0.8 [facility] Comment on above: Performed By: #### H EMDF, PT, BMP3M, PHOS3, MG3, CK3 #### [address] #### VD25H #### [facility] [address] [place] [address] Monocytes/100 WBC (Bld) 6.8 % Normal 2.0-10.0 [facility] Comment on above: Performed By: #### H EMDF, PT, BMP3M, PHOS3, MG3, CK3 #### [address] #### VD25H #### [facility] [address] [place] [address] Platelet mean volume Entitic volume (Bld) 7.5 fL Normal 7.4-10.4 [facility] Comment on above: Performed By: #### H EMDF, PT, BMP3M, PHOS3, MG3, CK3 #### [address] [place], [place] #### VD25H #### [facility] [address] [place] [address] Platelets #/vol (Bld) 375 10*3/uL Normal 140-440 [facility] Comment on above: Performed By: #### H EMDF, PT, BMP3M, PHOS3, MG3, CK3 #### [place] [address] [place], [place] #### VD25H #### [facility] [address] [place] [address] RBC #/vol (Bld) 3.88 10*6/uL Low 4.40-5.90 [facility] Comment on above: Performed By: #### H EMDF, PT, BMP3M, PHOS3, MG3, CK3 #### [place] [address] [place], [place] #### VD25H #### [facility] [address] [place] [address] WBC #/vol (Bld) 15.9 10*3/uL High 3.6-10.7 [facility] Comment on above: Performed By: #### H EMDF, PT, BMP3M, PHOS3, MG3, CK3 #### [place] [place] [address] [place] #### VD25H #### [facility] [address] [place] [address] Phosphoruson 07-20-2018 Phosphate mass conc 5.5 mg/dL High 2.5-4.5 [facility] Comment on above: Performed By: #### A DDON #### [address] Add on test from HISon 07-19 Add on test from HIS Accepted Normal [facility] Comment on above: Result Comment: Spec imen available & acceptable for analysis. Performed By: #### H EMDF, PT, BMP3M, PHOS3, MG3, CK3 #### [place] [address] [place] #### VD25H #### [facility] [address] [place] [address] Arterial Blood Gaseson 07-19 CO2 molar conc 31.5 mmol/L High 23.0-27.0 [facility] Comment on above: Performed By: #### H EMDF, PT, BMP3M, PHOS3, MG3, CK3 #### [address] #### VD25H #### [facility] [address] [place] [address] HCO3 molar conc (Bld) 30.2 mmol/L High 21.0-25.0 [facility] Comment on above: Performed By: #### H EMDF, PT, BMP3M, PHOS3, MG3, CK3 #### [address] #### VD25H #### [facility] [address] [facility] [place] [address] Hemoglobin mass conc (Bld) 11.7 g/dL Normal ScreenOnly [facility] Comment on above: Performed By: #### H EMDF, PT, BMP3M, PHOS3, MG3, CK3 #### [address] #### VD25H #### [facility] [address] [facility] [place] [address] Oxygen ppres (Bld) 85.1 mm[Hg] Normal 80.0-100.0 [facility] Comment on above: Performed By: #### H EMDF, PT, BMP3M, PHOS3, MG3, CK3 #### [address] #### VD25H #### [facility] [address] [facility] [place] [address] Oxygen saturation in Blood 95.9 % Normal 95.0-100.0 [facility] Comment on above: Performed By: #### H EMDF, PT, BMP3M, PHOS3, MG3, CK3 #### [address] #### VD25H #### [facility] [address] [facility] [place] [address] pCO2 43.6 mm[Hg] Normal 35.0-45.0 [facility] Comment on above: Performed By: #### H EMDF, PT, BMP3M, PHOS3, MG3, CK3 #### [facility] [address] [place] #### VD25H #### [facility] [address] [place] [address] pH (Bld) 7.458 High 7.350-7.450 [facility] Comment on above: Performed By: #### H EMDF, PT, BMP3M, PHOS3, MG3, CK3 #### [place] [place] #### VD25H #### [facility] [address] [place] [address] Std Base Excess 5.7 mmol/L High -3.0-3.0 [facility] Comment on above: Performed By: #### H EMDF, PT, BMP3M, PHOS3, MG3, CK3 #### [place] [address] [place] #### VD25H #### [facility] [address] [place] [address] FIO2 40% Normal [facility] Comment on above: Performed By: #### H EMDF, PT, BMP3M, PHOS3, MG3, CK3 #### [address] #### VD25H #### [facility] [address] [place] [address] Basic Metabolic Panelon 03-2 Calcium mass conc 7.5 mg/dL Low 8.4-10.4 [facility] Comment on above: Performed By: #### H EMDF, PT, BMP3M, PHOS3, MG3, CK3 #### [place] [address] [place] #### VD25H #### [facility] [address] [place] [address] Glucose mass conc 274 mg/dL High 70-100 [facility] Comment on above: Performed By: #### H EMDF, PT, BMP3M, PHOS3, MG3, CK3 #### [place] [place] [address] [place] #### VD25H #### [facility] [address] [place] [address] Anion gap molar conc 6 Normal [facility] Comment on above: Performed By: #### H EMDF, PT, BMP3M, PHOS3, MG3, CK3 #### [address] [place] #### VD25H #### [facility] [address] [place] [address] CO2 molar conc 31 mmol/L High 22-30 [facility] Comment on above: Performed By: #### H EMDF, PT, BMP3M, PHOS3, MG3, CK3 #### [address] #### VD25H #### [facility] [address] [place] [address] Creatinine mass conc 0.64 mg/dL Normal 0.52-1.25 [facility] Comment on above: Performed By: #### H EMDF, PT, BMP3M, PHOS3, MG3, CK3 #### [address] #### VD25H #### [facility] [address] [place] [address] GFR/1.73 sq M predicted among blacks MDRD vol rate/area (S/P/Bld) mL/min/{1.73_m2} Normal >60 [facility] Comment on above: Performed By: #### H EMDF, PT, BMP3M, PHOS3, MG3, CK3 #### [address] [place] #### VD25H #### [facility] [address] [place] [address] GFR/1.73 sq M predicted among non-blacks MDRD vol rate/area (S/P/Bld) mL/min/{1.73_m2} Normal >60 [facility] Comment on above: Result Comment: Sour ce- MDRD equation with creatinine calibration to IDMS(NKDEP) eGFR not recommended for drug dose adjustment Performed By: #### H EMDF, PT, BMP3M, PHOS3, MG3, CK3 #### [facility] [address] [place] #### VD25H #### [facility] [address] [place] [address] Urea nitrogen mass conc 15 mg/dL Normal 7-20 [facility] Comment on above: Performed By: #### H EMDF, PT, BMP3M, PHOS3, MG3, CK3 #### [place] [place] #### VD25H #### [facility] [address] [place] [address] Chloride molar conc 105 mmol/L Normal 98-107 [facility] Comment on above: Performed By: #### H EMDF, PT, BMP3M, PHOS3, MG3, CK3 #### [address] [place] #### VD25H #### [facility] [address] [place] [address] Potassium molar conc 4.3 mmol/L Normal 3.5-5.1 [facility] Comment on above: Performed By: #### H EMDF, PT, BMP3M, PHOS3, MG3, CK3 #### [place] [address] [address] [facility], [place] #### VD25H #### [facility] [address] [place] [address] Sodium molar conc 141 mmol/L Normal 135-145 [facility] Comment on above: Performed By: #### H EMDF, PT, BMP3M, PHOS3, MG3, CK3 #### [place] [place] #### VD25H #### [facility] [address] [place] [address] CR Abdomen APon 07-19-2018 CR Abdomen AP Patient Name: KATHYA HOOPER Diagnostic Radiology Exam Date/Time 07/19/2018 06:44:12 EDT Exam CR Abdomen AP Ordering Physician JOYA ROJAS Accession Number [id number] CPT4 Codes 98121 () Reason For Exam ileus Report Abdomen: [...] Transcribed Date and Time: 07/19/2018 7:46 Normal [facility] CR Chest Portableon 07-20-19 19 CR Chest Portable Patient Name: KATHYA HOOPER Diagnostic Radiology Exam Date/Time 07/19/2018 06:43:52 EDT Exam CR Chest Portable Ordering Physician MARIA EUGENIA PEREZ Accession Number [id number] CPT4 Codes 57992 () Reason For Exam ETT placement Report [...] Transcribed Date and Time: 07/19/2018 7:44 Normal [facility] Glucose,Bedsideon 07-19-2018 Glucose mass conc 95 mg/dL Normal 70-100 [facility] Comment on above: Result Comment: Test performed by glucose meter. Results may be 10%-15% lower than serum/plasma values. (CLIA ID [id number]) Performed By: #### H EMDF, PT, BMP3M, PHOS3, MG3, CK3 #### [facility] [address] [place], [place] #### VD25H #### [facility] [address] [place] [address] Hemogram w/ Autodiffon 07-19 Abs Baso Cnt 0.1 10*3/uL Normal 0.0-0.2 [facility] Comment on above: Performed By: #### H EMDF, PT, BMP3M, PHOS3, MG3, CK3 #### [facility] [address] [place] #### VD25H #### [facility] [address] [facility] [place] [address] Abs Neutrophile Cnt 9.8 10*3/uL High 1.8-7.0 [facility] Comment on above: Performed By: #### H EMDF, PT, BMP3M, PHOS3, MG3, CK3 #### [facility] [address] [place] #### VD25H #### [facility] [address] [facility] [place] [address] Basophils/100 WBC (Bld) 0.5 % Normal 0.0-2.0 [facility] Comment on above: Performed By: #### H EMDF, PT, BMP3M, PHOS3, MG3, CK3 #### [facility] [address] [place] #### VD25H #### [facility] [address] [place] [address] Eosinophils #/vol (Bld) 0.3 10*3/uL Normal 0.0-0.5 [facility] Comment on above: Performed By: #### H EMDF, PT, BMP3M, PHOS3, MG3, CK3 #### [address] #### VD25H #### [facility] [address] [place] [address] Eosinophils/100 WBC (Bld) 2.5 % Normal 1.0-6.0 [facility] Comment on above: Performed By: #### H EMDF, PT, BMP3M, PHOS3, MG3, CK3 #### [address] #### VD25H #### [facility] [address] [place] [address] Erythrocyte distribution width Ratio (RBC) 13.3 % Normal 11.5-14.5 [facility] Comment on above: Performed By: #### H EMDF, PT, BMP3M, PHOS3, MG3, CK3 #### [address] #### VD25H #### [facility] [address] [place] [address] Granulocytes/100 WBC (Bld) 80.4 % High 40.0-80.0 [facility] Comment on above: Performed By: #### H EMDF, PT, BMP3M, PHOS3, MG3, CK3 #### [address] #### VD25H #### [facility] [address] [place] [address] Hematocrit Volume Fraction (Bld) 30.6 % Low 40.0-52.0 [facility] Comment on above: Performed By: #### H EMDF, PT, BMP3M, PHOS3, MG3, CK3 #### [address] #### VD25H #### [facility] [address] [place] [address] Hemoglobin mass conc (Bld) 10.5 g/dL Low 13.0-18.0 [facility] Comment on above: Performed By: #### H EMDF, PT, BMP3M, PHOS3, MG3, CK3 #### [address] #### VD25H #### [facility] [address] [place] [address] Lymphocytes #/vol (Bld) 1.1 10*3/uL Normal 1.0-4.3 [facility] Comment on above: Performed By: #### H EMDF, PT, BMP3M, PHOS3, MG3, CK3 #### [address] #### VD25H #### [place] [address] [place] [address] Lymphocytes/100 WBC (Bld) 9.1 % Low 20.0-40.0 [facility] Comment on above: Performed By: #### H EMDF, PT, BMP3M, PHOS3, MG3, CK3 #### [address] #### VD25H #### [place] [address] [place] [address] MCH Entitic mass (RBC) 29.7 pg Normal 26.0-34.0 [facility] Comment on above: Performed By: #### H EMDF, PT, BMP3M, PHOS3, MG3, CK3 #### [address] #### VD25H #### [place] [address] [place] [address] MCHC mass conc (RBC) 34.3 % Normal 32.0-36.0 [facility] Comment on above: Performed By: #### H EMDF, PT, BMP3M, PHOS3, MG3, CK3 #### [address] #### VD25H #### [facility] [address] [place] [address] MCV Entitic volume (RBC) 86.7 fL Normal 80.0-98.0 [facility] Comment on above: Performed By: #### H EMDF, PT, BMP3M, PHOS3, MG3, CK3 #### [place] [place] [address] [place] #### VD25H #### [facility] [address] [place] [address] Monocytes #/vol (Bld) 0.9 10*3/uL High 0.0-0.8 [facility] Comment on above: Performed By: #### H EMDF, PT, BMP3M, PHOS3, MG3, CK3 #### [address] #### VD25H #### [facility] [address] [place] [address] Monocytes/100 WBC (Bld) 7.5 % Normal 2.0-10.0 [facility] Comment on above: Performed By: #### H EMDF, PT, BMP3M, PHOS3, MG3, CK3 #### [place] [place] [address] [place] #### VD25H #### [facility] [address] [place] [address] Platelet mean volume Entitic volume (Bld) 7.3 fL Low 7.4-10.4 [facility] Comment on above: Performed By: #### H EMDF, PT, BMP3M, PHOS3, MG3, CK3 #### [address] [place], [place] #### VD25H #### [facility] [address] [place] [address] Platelets #/vol (Bld) 329 10*3/uL Normal 140-440 [facility] Comment on above: Performed By: #### H EMDF, PT, BMP3M, PHOS3, MG3, CK3 #### [facility] [address] [place], [place] #### VD25H #### [facility] [address] [place] [address] RBC #/vol (Bld) 3.53 10*6/uL Low 4.40-5.90 [facility] Comment on above: Performed By: #### H EMDF, PT, BMP3M, PHOS3, MG3, CK3 #### [address] [place], [place] #### VD25H #### [facility] [address] [place] [address] WBC #/vol (Bld) 12.2 10*3/uL High 3.6-10.7 [facility] Comment on above: Performed By: #### H EMDF, PT, BMP3M, PHOS3, MG3, CK3 #### [address] #### VD25H #### [facility] [address] [place] [address] Magnesiumon 07-19-2018 Magnesium mass conc 2.3 mg/dL Normal 1.6-2.3 [facility] Comment on above: Performed By: #### H EMDF, PT, BMP3M, PHOS3, MG3, CK3 #### [address] #### VD25H #### [facility] [address] [place] [address] Procalcitoninon 07-19-2018 Protein mass conc 0.15 ng/mL Abnormal <0.10 [facility] Comment on above: Performed By: #### H EMDF, PT, BMP3M, PHOS3, MG3, CK3 #### [address] #### VD25H #### [facility] [address] [place] [address] Interpretation See Below Normal [facility] Comment on above: Result Comment: PCT <0.50 = Low risk of severe sepsis and/or septic shock. PCT >2.00 = High risk of severe sepsis and/or septic shock. Performed By: #### H EMDF, PT, BMP3M, PHOS3, MG3, CK3 #### [facility] [address] [place] [address] #### VD25H #### [facility] [address] [place] [address] VL Venous Duplex US Lower Ex t Bilateralon 07-19-2018 VL Venous Duplex US Lower Ext Bilateral Patient Name: KATHYA HOOPER Ultrasound Exam Date/Time 07/19/2018 11:10:14 EDT Exam VL Venous Duplex US Lower Ext Bilateral Ordering Physician ETIENNE MARTÍNEZ JULIE Accession Number [id number] CPT4 Codes 44041 () Reason For Exam edema Report [facility] --- Lower Extremity Venous Duplex Report Patient Name: aKthya Hooper : 1955 Study Date: 07/19/2018 W (63yrs) Age: 63 Account: [id number] Gender: M Loc: T209 BP: Ordering: Yesenia Martínez Technologist: Ordering Physician: Yesenia Martínez Hoop Riveting Machine Operator: León Chaidez RVT, [facility] Interpreting Physician: Ricardo Hall MD --- Location: [facility] --- INDICATIONS: Edema. bilateral calf [...] performed. The images were obtained using a [employer] E9 vascular ultrasound machine. --- VENOUS FLOW [...] --+ Electronically signed by: Ricardo Hall MD [id number] Final Dictated: 07/20/2018 10:49 am Dictating Physician: RICARDO HALL Signed Date and Time: 07/19/2018 11:03 am Signed by: RICARDO HALL Normal [facility] Basic Metabolic Panelon 06-30 Calcium mass conc 7.9 mg/dL Low 8.4-10.4 [facility] Comment on above: Performed By: #### H EMDF, PT, BMP3M, PHOS3, MG3, CK3 #### [facility] [address] [place] #### VD25H #### [facility] [address] [place] [address] Glucose mass conc 113 mg/dL High 70-100 [facility] Comment on above: Performed By: #### H EMDF, PT, BMP3M, PHOS3, MG3, CK3 #### [place] [address] [place] #### VD25H #### [facility] [address] [place] [address] Anion gap molar conc 7 Normal [facility] Comment on above: Performed By: #### H EMDF, PT, BMP3M, PHOS3, MG3, CK3 #### [facility] [address] [facility], [place] #### VD25H #### [facility] [address] [place] [address] CO2 molar conc 31 mmol/L High 22-30 [facility] Comment on above: Performed By: #### H EMDF, PT, BMP3M, PHOS3, MG3, CK3 #### [place] [address] [facility], [place] #### VD25H #### [facility] [address] [place] [address] Creatinine mass conc 0.59 mg/dL Normal 0.52-1.25 [facility] Comment on above: Performed By: #### H EMDF, PT, BMP3M, PHOS3, MG3, CK3 #### [place] [address] [facility] [place] [address] #### VD25H #### [facility] [address] [place] [address] GFR/1.73 sq M predicted among blacks MDRD vol rate/area (S/P/Bld) mL/min/{1.73_m2} Normal >60 [facility] Comment on above: Performed By: #### H EMDF, PT, BMP3M, PHOS3, MG3, CK3 #### [address] [place] [address] #### VD25H #### [place] [address] [place] [address] GFR/1.73 sq M predicted among non-blacks MDRD vol rate/area (S/P/Bld) mL/min/{1.73_m2} Normal >60 [facility] Comment on above: Result Comment: Sour ce- MDRD equation with creatinine calibration to IDMS(NKDEP) eGFR not recommended for drug dose adjustment Performed By: #### H EMDF, PT, BMP3M, PHOS3, MG3, CK3 #### [address] #### VD25H #### [facility] [address] [place] [address] Urea nitrogen mass conc 19 mg/dL Normal 7-20 [facility] Comment on above: Performed By: #### H EMDF, PT, BMP3M, PHOS3, MG3, CK3 #### [address], [place] #### VD25H #### [facility] [address] [place] [address] Chloride molar conc 104 mmol/L Normal 98-107 [facility] Comment on above: Performed By: #### H EMDF, PT, BMP3M, PHOS3, MG3, CK3 #### [address], [place] #### VD25H #### [place] [address] [place] [address] Potassium molar conc 3.4 mmol/L Low 3.5-5.1 [facility] Comment on above: Performed By: #### H EMDF, PT, BMP3M, PHOS3, MG3, CK3 #### [facility] [address] [place] [address] #### VD25H #### [facility] [address] [place] [address] Sodium molar conc 142 mmol/L Normal 135-145 [facility] Comment on above: Performed By: #### H EMDF, PT, BMP3M, PHOS3, MG3, CK3 #### [facility] [address] [facility] [place] [address] #### VD25H #### [facility] [address] [place] [address] CR Abdomen APon 07-18-2018 CR Abdomen AP Patient Name: KATHYA HOOPER Diagnostic Radiology Exam Date/Time 07/18/2018 06:52:18 EDT Exam CR Abdomen AP Ordering Physician [id number] JOYA PERRY Accession Number [id number] CPT4 Codes 90728 () Reason For Exam ileus Report CLINICAL [...] Transcribed Date and Time: 07/18/2018 2:33 Normal [facility] CR Chest Portableon 07-19-19 CR Chest Portable Patient Name: KATHYA HOOPER Diagnostic Radiology Exam Date/Time 07/18/2018 06:52:50 EDT Exam CR Chest Portable Ordering Physician MARIA EUGENIA PEREZ Accession Number [id number] CPT4 Codes 08390 () Reason For Exam ETT placement Report [...] Transcribed Date and Time: 07/18/2018 2:32 Normal [facility] Hemogram w/ Autodiffon 07-18 Abs Baso Cnt 0.0 10*3/uL Normal 0.0-0.2 [facility] Comment on above: Performed By: #### H EMDF, PT, BMP3M, PHOS3, MG3, CK3 #### [facility] [address] [place] [address] #### VD25H #### [facility] [address] [place] [address] Abs Neutrophile Cnt 8.6 10*3/uL High 1.8-7.0 [facility] Comment on above: Performed By: #### H EMDF, PT, BMP3M, PHOS3, MG3, CK3 #### [facility] [address] [place], [place] #### VD25H #### [facility] [address] [place] [address] Basophils/100 WBC (Bld) 0.4 % Normal 0.0-2.0 [facility] Comment on above: Performed By: #### H EMDF, PT, BMP3M, PHOS3, MG3, CK3 #### [place] [address] [address] [place] #### VD25H #### [facility] [address] [place] [address] Eosinophils #/vol (Bld) 0.2 10*3/uL Normal 0.0-0.5 [facility] Comment on above: Performed By: #### H EMDF, PT, BMP3M, PHOS3, MG3, CK3 #### [address] #### VD25H #### [facility] [address] [place] [address] Eosinophils/100 WBC (Bld) 2.1 % Normal 1.0-6.0 [facility] Comment on above: Performed By: #### H EMDF, PT, BMP3M, PHOS3, MG3, CK3 #### [address] #### VD25H #### [facility] [address] [place] [address] Erythrocyte distribution width Ratio (RBC) 13.4 % Normal 11.5-14.5 [facility] Comment on above: Performed By: #### H EMDF, PT, BMP3M, PHOS3, MG3, CK3 #### [address] #### VD25H #### [facility] [address] [place] [address] Granulocytes/100 WBC (Bld) 80.0 % Normal 40.0-80.0 [facility] Comment on above: Performed By: #### H EMDF, PT, BMP3M, PHOS3, MG3, CK3 #### [place] [address] [place], [place] #### VD25H #### [facility] [address] [place] [address] Hematocrit Volume Fraction (Bld) 37.3 % Low 40.0-52.0 [facility] Comment on above: Performed By: #### H EMDF, PT, BMP3M, PHOS3, MG3, CK3 #### [place] [address] [place], [place] #### VD25H #### [facility] [address] [place] [address] Hemoglobin mass conc (Bld) 12.6 g/dL Low 13.0-18.0 [facility] Comment on above: Performed By: #### H EMDF, PT, BMP3M, PHOS3, MG3, CK3 #### [address] #### VD25H #### [facility] [address] [place] [address] Lymphocytes #/vol (Bld) 1.1 10*3/uL Normal 1.0-4.3 [facility] Comment on above: Performed By: #### H EMDF, PT, BMP3M, PHOS3, MG3, CK3 #### [address] #### VD25H #### [facility] [address] [place] [address] Lymphocytes/100 WBC (Bld) 10.3 % Low 20.0-40.0 [facility] Comment on above: Performed By: #### H EMDF, PT, BMP3M, PHOS3, MG3, CK3 #### [address] #### VD25H #### [facility] [address] [place] [address] MCH Entitic mass (RBC) 29.4 pg Normal 26.0-34.0 [facility] Comment on above: Performed By: #### H EMDF, PT, BMP3M, PHOS3, MG3, CK3 #### [address] #### VD25H #### [facility] [address] [place] [address] MCHC mass conc (RBC) 33.9 % Normal 32.0-36.0 [facility] Comment on above: Performed By: #### H EMDF, PT, BMP3M, PHOS3, MG3, CK3 #### [address] #### VD25H #### [facility] [address] [place] [address] MCV Entitic volume (RBC) 86.8 fL Normal 80.0-98.0 [facility] Comment on above: Performed By: #### H EMDF, PT, BMP3M, PHOS3, MG3, CK3 #### [address] #### [id number] #### [facility] [address] [place] [address] Monocytes #/vol (Bld) 0.8 10*3/uL Normal 0.0-0.8 [facility] Comment on above: Performed By: #### H EMDF, PT, BMP3M, PHOS3, MG3, CK3 #### [address] #### [id number] #### [place] [address] [place] [address] Monocytes/100 WBC (Bld) 7.2 % Normal 2.0-10.0 [facility] Comment on above: Performed By: #### H EMDF, PT, BMP3M, PHOS3, MG3, CK3 #### [address] #### [id number] #### [facility] [address] [place] [address] Platelet mean volume Entitic volume (Bld) 7.8 fL Normal 7.4-10.4 [facility] Comment on above: Performed By: #### H EMDF, PT, BMP3M, PHOS3, MG3, CK3 #### [place] [address] [address], [place] #### [id number] #### [facility] [address] [place] [address] Platelets #/vol (Bld) 301 10*3/uL Normal 140-440 [facility] Comment on above: Performed By: #### H EMDF, PT, BMP3M, PHOS3, MG3, CK3 #### [address] #### VD25H #### [facility] [address] [place] [address] RBC #/vol (Bld) 4.29 10*6/uL Low 4.40-5.90 [facility] Comment on above: Performed By: #### H EMDF, PT, BMP3M, PHOS3, MG3, CK3 #### [address] #### VD25H #### [facility] [address] [place] [address] WBC #/vol (Bld) 10.8 10*3/uL High 3.6-10.7 [facility] Comment on above: Performed By: #### H EMDF, PT, BMP3M, PHOS3, MG3, CK3 #### [address] #### VD25H #### [facility] [address] [place] [address] Arterial Blood Gaseson 07-17 CO2 molar conc 29.7 mmol/L High 23.0-27.0 [facility] Comment on above: Performed By: #### H EMDF, PT, BMP3M, PHOS3, MG3, CK3 #### [address] #### VD25H #### [facility] [address] [place] [address] HCO3 molar conc (Bld) 28.4 mmol/L High 21.0-25.0 [facility] Comment on above: Performed By: #### H EMDF, PT, BMP3M, PHOS3, MG3, CK3 #### [place] [address] [address] [place], [place] #### VD25H #### [facility] [address] [place] [address] Hemoglobin mass conc (Bld) 11.1 g/dL Normal ScreenOnly [facility] Comment on above: Performed By: #### H EMDF, PT, BMP3M, PHOS3, MG3, CK3 #### [address] #### VD25H #### [place] [address] [place] [address] Oxygen ppres (Bld) 109.2 mm[Hg] High 80.0-100.0 [facility] Comment on above: Performed By: #### H EMDF, PT, BMP3M, PHOS3, MG3, CK3 #### [address] #### VD25H #### [facility] [address] [place] [address] Oxygen saturation in Blood 97.8 % Normal 95.0-100.0 [facility] Comment on above: Performed By: #### H EMDF, PT, BMP3M, PHOS3, MG3, CK3 #### [address] #### VD25H #### [facility] [address] [place] [address] pCO2 39.8 mm[Hg] Normal 35.0-45.0 [facility] Comment on above: Performed By: #### H EMDF, PT, BMP3M, PHOS3, MG3, CK3 #### [address] #### VD25H #### [place] [address] [place] [address] pH (Bld) 7.472 High 7.350-7.450 [facility] Comment on above: Performed By: #### H EMDF, PT, BMP3M, PHOS3, MG3, CK3 #### [place] [address] [place] #### VD25H #### [facility] [address] [place] [address] Std Base Excess 4.5 mmol/L High -3.0-3.0 [facility] Comment on above: Performed By: #### H EMDF, PT, BMP3M, PHOS3, MG3, CK3 #### [place] [address] [address] [address] [facility], [place] #### VD25H #### [facility] [address] [place] [address] FIO2 60% Normal [facility] Comment on above: Performed By: #### H EMDF, PT, BMP3M, PHOS3, MG3, CK3 #### [address] [facility], [place] #### VD25H #### [facility] [address] [place] [address] Basic Metabolic Panelon - Anion gap molar conc 6 Normal [facility] Comment on above: Performed By: #### H EMDF, PT, BMP3M, PHOS3, MG3, CK3 #### [place] [address] [address] [facility], [place] #### VD25H #### [facility] [address] [place] [address] Calcium mass conc 8.0 mg/dL Low 8.4-10.4 [facility] Comment on above: Performed By: #### H EMDF, PT, BMP3M, PHOS3, MG3, CK3 #### [place] [address] [address] [facility], [place] #### VD25H #### [facility] [address] [place] [address] CO2 molar conc 31 mmol/L High 22-30 [facility] Comment on above: Performed By: #### H EMDF, PT, BMP3M, PHOS3, MG3, CK3 #### [facility] [address] [place] #### VD25H #### [facility] [address] [place] [address] Glucose mass conc 107 mg/dL High 70-100 [facility] Comment on above: Performed By: #### H EMDF, PT, BMP3M, PHOS3, MG3, CK3 #### [address] #### VD25H #### [facility] [address] [place] [address] Urea nitrogen mass conc 22 mg/dL High 7-20 [facility] Comment on above: Performed By: #### H EMDF, PT, BMP3M, PHOS3, MG3, CK3 #### [address] #### VD25H #### [facility] [address] [place] [address] Creatinine mass conc 0.66 mg/dL Normal 0.52-1.25 [facility] Comment on above: Performed By: #### H EMDF, PT, BMP3M, PHOS3, MG3, CK3 #### [place] [address] [address] [place] #### VD25H #### [facility] [address] [place] [address] GFR/1.73 sq M predicted among blacks MDRD vol rate/area (S/P/Bld) mL/min/{1.73_m2} Normal >60 [facility] Comment on above: Performed By: #### H EMDF, PT, BMP3M, PHOS3, MG3, CK3 #### [address] #### VD25H #### [facility] [address] [place] [address] GFR/1.73 sq M predicted among non-blacks MDRD vol rate/area (S/P/Bld) mL/min/{1.73_m2} Normal >60 [facility] Comment on above: Result Comment: Sour ce- MDRD equation with creatinine calibration to IDMS(NKDEP) eGFR not recommended for drug dose adjustment Performed By: #### H EMDF, PT, BMP3M, PHOS3, MG3, CK3 #### [facility] [address] [place] #### VD25H #### [facility] [address] [place] [address] Chloride molar conc 105 mmol/L Normal 98-107 [facility] Comment on above: Performed By: #### H EMDF, PT, BMP3M, PHOS3, MG3, CK3 #### [address] #### VD25H #### [facility] [address] [place] [address] Potassium molar conc 3.9 mmol/L Normal 3.5-5.1 [facility] Comment on above: Performed By: #### H EMDF, PT, BMP3M, PHOS3, MG3, CK3 #### [facility] [address] [place] #### VD25H #### [facility] [address] [place] [address] Sodium molar conc 142 mmol/L Normal 135-145 [facility] Comment on above: Performed By: #### H EMDF, PT, BMP3M, PHOS3, MG3, CK3 #### [address] #### VD25H #### [facility] [address] [place] [address] CR Abdomen APon 07-17-2018 CR Abdomen AP Patient Name: KATHYA HOOPER Diagnostic Radiology Exam Date/Time 07/17/2018 12:46:31 EDT Exam CR Abdomen AP Ordering Physician [id number] ORLANDO JOYA Accession Number [id number] CPT4 Codes 08795 () Reason For Exam ileus Report Abdomen: [...] Transcribed Date and Time: 07/17/2018 12:46 Normal [facility] CR Abdomen AP Patient Name: KATHYA HOOPER Diagnostic Radiology Exam Date/Time 07/17/2018 06:25:43 EDT Exam CR Abdomen AP Ordering Physician [id number] ORLANDO JOYA Accession Number [id number] CPT4 Codes 52398 () Reason For Exam ileus Report Abdomen: [...] Transcribed Date and Time: 07/17/2018 7:16 Normal [facility] CR Chest Portableon 07-18-19 CR Chest Portable Patient Name: KATHYA HOOPER Diagnostic Radiology Exam Date/Time 07/17/2018 18:08:41 EDT Exam CR Chest Portable Ordering Physician SALO DAVIS Accession Number [id number] CPT4 Codes 89055 () Reason For Exam picc Report CHEST [...] Transcribed Date and Time: 07/17/2018 7:24 Normal [facility] CR Chest Portable Patient Name: KATHYA HOOPER Diagnostic Radiology Exam Date/Time 07/17/2018 18:08:41 EDT Exam CR Chest Portable Ordering Physician SALO DAVIS Accession Number [id number] CPT4 Codes 77969 () Reason For Exam reheck line tip [...] Transcribed Date and Time: 07/17/2018 7:[address] [facility] CR Chest Portable Patient Name: KATHYA HOOPER Diagnostic Radiology Exam Date/Time 07/17/2018 06:26:06 EDT Exam CR Chest Portable Ordering Physician MARIA EUGENIA PEREZ Accession Number [id number] CPT4 Codes 18251 () Reason For Exam ETT placement Report [...] Transcribed Date and Time: 07/17/2018 7:[address] Hem[facility] w/ Autodiffon 07-17 Abs Baso Cnt 0.0 10*3/uL Normal 0.0-0.[address] [facility] [facility] Comment on above: Performed By: #### H EMDF, PT, BMP3M, PHOS3, MG3, CK3 #### [facility] HospitalRecent[facility]oker[facility] [address] [place] [id number] #### VD25H #### [facility] [address] [place] [address] Abs Neutrophile Cnt 8.1 10*3/uL High 1.8-7.0 [facility] Comment on above: Performed By: #### H EMDF, PT, BMP3M, PHOS3, MG3, CK3 #### [address] [address] #### VD25H #### [facility] [address] [place] [address] Basophils/100 WBC (Bld) 0.4 % Normal 0.0-2.0 [facility] Comment on above: Performed By: #### H EMDF, PT, BMP3M, PHOS3, MG3, CK3 #### [address] #### VD25H #### [place] [address] [place] [address] Eosinophils #/vol (Bld) 0.1 10*3/uL Normal 0.0-0.5 [facility] Comment on above: Performed By: #### H EMDF, PT, BMP3M, PHOS3, MG3, CK3 #### [address] #### VD25H #### [place] [address] [place] [address] Eosinophils/100 WBC (Bld) 1.4 % Normal 1.0-6.0 [facility] Comment on above: Performed By: #### H EMDF, PT, BMP3M, PHOS3, MG3, CK3 #### [address] [phone] #### VD25H #### [place] [address] [place] [address] Erythrocyte distribution width Ratio (RBC) 13.5 % Normal 11.5-14.5 [facility] Comment on above: Performed By: #### H EMDF, PT, BMP3M, PHOS3, MG3, CK3 #### [address] #### VD25H #### [facility] [address] [place] [address] Granulocytes/100 WBC (Bld) 78.6 % Normal 40.0-80.0 [facility] Comment on above: Performed By: #### H EMDF, PT, BMP3M, PHOS3, MG3, CK3 #### [place] [address] [place] #### VD25H #### [facility] [address] [place] [address] Hematocrit Volume Fraction (Bld) 31.3 % Low 40.0-52.0 [facility] Comment on above: Performed By: #### H EMDF, PT, BMP3M, PHOS3, MG3, CK3 #### [address] #### VD25H #### [facility] [address] [place] [address] Hemoglobin mass conc (Bld) 10.4 g/dL Low 13.0-18.0 [facility] Comment on above: Performed By: #### H EMDF, PT, BMP3M, PHOS3, MG3, CK3 #### [place] [address] [place] #### VD25H #### [facility] [address] [place] [address] Lymphocytes #/vol (Bld) 1.0 10*3/uL Normal 1.0-4.3 [facility] Comment on above: Performed By: #### H EMDF, PT, BMP3M, PHOS3, MG3, CK3 #### [address] #### VD25H #### [facility] [address] [place] [address] Lymphocytes/100 WBC (Bld) 10.0 % Low 20.0-40.0 [facility] Comment on above: Performed By: #### H EMDF, PT, BMP3M, PHOS3, MG3, CK3 #### [place] [address] [address] [place] #### VD25H #### [facility] [address] [place] [address] MCH Entitic mass (RBC) 29.3 pg Normal 26.0-34.0 [facility] Comment on above: Performed By: #### H EMDF, PT, BMP3M, PHOS3, MG3, CK3 #### [place] [address] [address] [place] #### VD25H #### [facility] [address] [place] [address] MCHC mass conc (RBC) 33.3 % Normal 32.0-36.0 [facility] Comment on above: Performed By: #### H EMDF, PT, BMP3M, PHOS3, MG3, CK3 #### [address] #### VD25H #### [facility] [address] [place] [address] MCV Entitic volume (RBC) 87.9 fL Normal 80.0-98.0 [facility] Comment on above: Performed By: #### H EMDF, PT, BMP3M, PHOS3, MG3, CK3 #### [place] [address] [place] #### VD25H #### [facility] [address] [place] [address] Monocytes #/vol (Bld) 1.0 10*3/uL High 0.0-0.8 [facility] Comment on above: Performed By: #### H EMDF, PT, BMP3M, PHOS3, MG3, CK3 #### [address] [place], [place] #### VD25H #### [facility] [address] [place] [address] Monocytes/100 WBC (Bld) 9.6 % Normal 2.0-10.0 [facility] Comment on above: Performed By: #### H EMDF, PT, BMP3M, PHOS3, MG3, CK3 #### [address] [place], [place] #### VD25H #### [facility] [address] [place] [address] Platelet mean volume Entitic volume (Bld) 7.6 fL Normal 7.4-10.4 [facility] Comment on above: Performed By: #### H EMDF, PT, BMP3M, PHOS3, MG3, CK3 #### [place] [address] [place] #### VD25H #### [facility] [address] [place] [address] Platelets #/vol (Bld) 307 10*3/uL Normal 140-440 [facility] Comment on above: Performed By: #### H EMDF, PT, BMP3M, PHOS3, MG3, CK3 #### [address] #### VD25H #### [facility] [address] [place] [address] RBC #/vol (Bld) 3.56 10*6/uL Low 4.40-5.90 [facility] Comment on above: Performed By: #### H EMDF, PT, BMP3M, PHOS3, MG3, CK3 #### [address] #### VD25H #### [facility] [address] [place] [address] WBC #/vol (Bld) 10.2 10*3/uL Normal 3.6-10.7 [facility] Comment on above: Performed By: #### H EMDF, PT, BMP3M, PHOS3, MG3, CK3 #### [address] #### VD25H #### [facility] [address] [place] [address] Basic Metabolic Panelon 06-29 Calcium mass conc 8.1 mg/dL Low 8.4-10.4 [facility] Comment on above: Performed By: #### H EMDF, PT, BMP3M, PHOS3, MG3, CK3 #### [place] [address] [address] [place] #### VD25H #### [facility] [address] [place] [address] Anion gap molar conc 5 Normal [facility] Comment on above: Performed By: #### H EMDF, PT, BMP3M, PHOS3, MG3, CK3 #### [address] #### VD25H #### [facility] [address] [place] [address] CO2 molar conc 32 mmol/L High 22-30 [facility] Comment on above: Performed By: #### H EMDF, PT, BMP3M, PHOS3, MG3, CK3 #### [address] #### VD25H #### [facility] [address] [place] [address] Creatinine mass conc 0.62 mg/dL Normal 0.52-1.25 [facility] Comment on above: Performed By: #### H EMDF, PT, BMP3M, PHOS3, MG3, CK3 #### [address] #### VD25H #### [facility] [address] [place] [address] GFR/1.73 sq M predicted among blacks MDRD vol rate/area (S/P/Bld) mL/min/{1.73_m2} Normal >60 [facility] Comment on above: Performed By: #### H EMDF, PT, BMP3M, PHOS3, MG3, CK3 #### [address] #### VD25H #### [facility] [address] [place] [address] GFR/1.73 sq M predicted among non-blacks MDRD vol rate/area (S/P/Bld) mL/min/{1.73_m2} Normal >60 [facility] Comment on above: Result Comment: Sour ce- MDRD equation with creatinine calibration to IDMS(NKDEP) eGFR not recommended for drug dose adjustment Performed By: #### H EMDF, PT, BMP3M, PHOS3, MG3, CK3 #### [facility] [address] [place] #### VD25H #### [facility] [address] [place] [address] Glucose mass conc 103 mg/dL High 70-100 [facility] Comment on above: Performed By: #### H EMDF, PT, BMP3M, PHOS3, MG3, CK3 #### [address] #### VD25H #### [facility] [address] [place] [address] Urea nitrogen mass conc 20 mg/dL Normal 7-20 [facility] Comment on above: Performed By: #### H EMDF, PT, BMP3M, PHOS3, MG3, CK3 #### [place] [address] [place] #### VD25H #### [facility] [address] [place] [address] Chloride molar conc 107 mmol/L Normal 98-107 [facility] Comment on above: Performed By: #### H EMDF, PT, BMP3M, PHOS3, MG3, CK3 #### [place] [address] [place] #### VD25H #### [facility] [address] [place] [address] Potassium molar conc 3.7 mmol/L Normal 3.5-5.1 [facility] Comment on above: Performed By: #### H EMDF, PT, BMP3M, PHOS3, MG3, CK3 #### [place] [address] [place] [address] #### VD25H #### [facility] [address] [place] [address] Sodium molar conc 145 mmol/L Normal 135-145 [facility] Comment on above: Performed By: #### H EMDF, PT, BMP3M, PHOS3, MG3, CK3 #### [facility] [address] [place] #### VD25H #### [facility] [address] [place] [address] CR Abdomen APon 07-16-2018 CR Abdomen AP Patient Name: KATHYA HOOPER Diagnostic Radiology Exam Date/Time 07/16/2018 08:00:58 EDT Exam CR Abdomen AP Ordering Physician [id number] JOYA PERRY Accession Number [id number] CPT4 Codes 46630 () Reason For Exam ileus Report KUB [...] Transcribed Date and Time: 07/16/2018 10:03 Normal [facility] CR Chest Portableon 07-17-19 19 CR Chest Portable Patient Name: KATHYA HOOPER Diagnostic Radiology Exam Date/Time 07/16/2018 06:19:28 EDT Exam CR Chest Portable Ordering Physician MARIA EUGENIA PEREZ Accession Number [id number] CPT4 Codes 79023 () Reason For Exam ETT placement Report [...] There is partially visualized surgical hardware and jdaa overlying the lower cervical spine. There is no mediastinal widening or other significant interval change. Report Dictated on Final Dictated: 07/16/2018 10:10 am Dictating Physician: MD CANCINO AHMAD Signed Date and Time: 07/16/2018 10:13 am Signed by: MD CANCINO AHMAD Transcribed Date and Time: 07/16/2018 10:10 Normal [facility] Hemogram w/ Autodiffon 07-16 Abs Baso Cnt 0.0 10*3/uL Normal 0.0-0.2 [facility] Comment on above: Performed By: #### H EMDF, PT, BMP3M, PHOS3, MG3, CK3 #### [facility] [address] [place] [address] #### VD25H #### [facility] [address] [place] [address] Abs Neutrophile Cnt 8.7 10*3/uL High 1.8-7.0 [facility] Comment on above: Performed By: #### H EMDF, PT, BMP3M, PHOS3, MG3, CK3 #### [facility] [address] [place] [address] #### VD25H #### [facility] [address] [place] [address] Basophils/100 WBC (Bld) 0.2 % Normal 0.0-2.0 [facility] Comment on above: Performed By: #### H EMDF, PT, BMP3M, PHOS3, MG3, CK3 #### [place] [address] [address] [place] #### VD25H #### [facility] [address] [place] [address] Eosinophils #/vol (Bld) 0.1 10*3/uL Normal 0.0-0.5 [facility] Comment on above: Performed By: #### H EMDF, PT, BMP3M, PHOS3, MG3, CK3 #### [address] [place], [place] #### VD25H #### [facility] [address] [place] [address] Eosinophils/100 WBC (Bld) 0.7 % Low 1.0-6.0 [facility] Comment on above: Performed By: #### H EMDF, PT, BMP3M, PHOS3, MG3, CK3 #### [address] [place], [place] #### VD25H #### [facility] [address] [place] [address] Erythrocyte distribution width Ratio (RBC) 13.7 % Normal 11.5-14.5 [facility] Comment on above: Performed By: #### H EMDF, PT, BMP3M, PHOS3, MG3, CK3 #### [address] #### VD25H #### [facility] [address] [place] [address] Granulocytes/100 WBC (Bld) 83.0 % High 40.0-80.0 [facility] Comment on above: Performed By: #### H EMDF, PT, BMP3M, PHOS3, MG3, CK3 #### [address] #### VD25H #### [facility] [address] [place] [address] Hematocrit Volume Fraction (Bld) 30.3 % Low 40.0-52.0 [facility] Comment on above: Performed By: #### H EMDF, PT, BMP3M, PHOS3, MG3, CK3 #### [address] [place] #### VD25H #### [facility] [address] [place] [address] Hemoglobin mass conc (Bld) 10.5 g/dL Low 13.0-18.0 [facility] Comment on above: Performed By: #### H EMDF, PT, BMP3M, PHOS3, MG3, CK3 #### [address] #### VD25H #### [facility] [address] [place] [address] Lymphocytes #/vol (Bld) 0.7 10*3/uL Low 1.0-4.3 [facility] Comment on above: Performed By: #### H EMDF, PT, BMP3M, PHOS3, MG3, CK3 #### [address] #### VD25H #### [facility] [address] [place] [address] Lymphocytes/100 WBC (Bld) 6.7 % Low 20.0-40.0 [facility] Comment on above: Performed By: #### H EMDF, PT, BMP3M, PHOS3, MG3, CK3 #### [address] #### VD25H #### [facility] [address] [place] [address] MCH Entitic mass (RBC) 30.2 pg Normal 26.0-34.0 [facility] Comment on above: Performed By: #### H EMDF, PT, BMP3M, PHOS3, MG3, CK3 #### [address] #### VD25H #### [facility] [address] [place] [address] MCHC mass conc (RBC) 34.6 % Normal 32.0-36.0 [facility] Comment on above: Performed By: #### H EMDF, PT, BMP3M, PHOS3, MG3, CK3 #### [place] [address] [address] [place] #### VD25H #### [facility] [address] [place] [address] MCV Entitic volume (RBC) 87.3 fL Normal 80.0-98.0 [facility] Comment on above: Performed By: #### H EMDF, PT, BMP3M, PHOS3, MG3, CK3 #### [address] #### VD25H #### [facility] [address] [place] [address] Monocytes #/vol (Bld) 1.0 10*3/uL High 0.0-0.8 [facility] Comment on above: Performed By: #### H EMDF, PT, BMP3M, PHOS3, MG3, CK3 #### [address] #### VD25H #### [facility] [address] [place] [address] Monocytes/100 WBC (Bld) 9.4 % Normal 2.0-10.0 [facility] Comment on above: Performed By: #### H EMDF, PT, BMP3M, PHOS3, MG3, CK3 #### [address] [place], [place] #### VD25H #### [facility] [address] [place] [address] Platelet mean volume Entitic volume (Bld) 6.9 fL Low 7.4-10.4 [facility] Comment on above: Performed By: #### H EMDF, PT, BMP3M, PHOS3, MG3, CK3 #### [address] #### VD25H #### [facility] [address] [place] [address] Platelets #/vol (Bld) 254 10*3/uL Normal 140-440 [facility] Comment on above: Performed By: #### H EMDF, PT, BMP3M, PHOS3, MG3, CK3 #### [facility] [address] [place] #### VD25H #### [facility] [address] [place] [address] RBC #/vol (Bld) 3.47 10*6/uL Low 4.40-5.90 [facility] Comment on above: Performed By: #### H EMDF, PT, BMP3M, PHOS3, MG3, CK3 #### [address] #### VD25H #### [place] [address] [place] [address] WBC #/vol (Bld) 10.5 10*3/uL Normal 3.6-10.7 [facility] Comment on above: Performed By: #### H EMDF, PT, BMP3M, PHOS3, MG3, CK3 #### [address] #### VD25H #### [place] [address] [place] [address] Arterial Blood Gaseson 07-15 CO2 molar conc 26.7 mmol/L Normal 23.0-27.0 [facility] Comment on above: Performed By: #### H EMDF, PT, BMP3M, PHOS3, MG3, CK3 #### [address] #### VD25H #### [facility] [address] [place] [address] FIO2 50% Normal [facility] Comment on above: Performed By: #### H EMDF, PT, BMP3M, PHOS3, MG3, CK3 #### [address] #### VD25H #### [facility] [address] [place] [address] HCO3 molar conc (Bld) 25.7 mmol/L High 21.0-25.0 [facility] Comment on above: Performed By: #### H EMDF, PT, BMP3M, PHOS3, MG3, CK3 #### [address] #### VD25H #### [facility] [address] [place] [address] Hemoglobin mass conc (Bld) 12.5 g/dL Normal ScreenOnly [facility] Comment on above: Performed By: #### H EMDF, PT, BMP3M, PHOS3, MG3, CK3 #### [address] #### VD25H #### [place] [address] [place] [address] Oxygen ppres (Bld) 90.4 mm[Hg] Normal 80.0-100.0 [facility] Comment on above: Performed By: #### H EMDF, PT, BMP3M, PHOS3, MG3, CK3 #### [address] #### VD25H #### [place] [address] [place] [address] Oxygen saturation in Blood 96.8 % Normal 95.0-100.0 [facility] Comment on above: Performed By: #### H EMDF, PT, BMP3M, PHOS3, MG3, CK3 #### [address] #### [id number] #### [facility] [address] [place] [address] pCO2 33.4 mm[Hg] Low 35.0-45.0 [facility] Comment on above: Performed By: #### H EMDF, PT, BMP3M, PHOS3, MG3, CK3 #### [address] #### [id number] #### [place] [address] [place] [address] pH (Bld) 7.504 High 7.350-7.450 [facility] Comment on above: Performed By: #### H EMDF, PT, BMP3M, PHOS3, MG3, CK3 #### [address] [place], [place] #### [id number] #### [facility] [address] [place] [address] Std Base Excess 2.9 mmol/L Normal -3.0-3.0 [facility] Comment on above: Performed By: #### H EMDF, PT, BMP3M, PHOS3, MG3, CK3 #### [address] #### [id number] #### [place] [address] [place] [address] Basic Metabolic Panelon 06-29 Anion gap molar conc 8 Normal [facility] Comment on above: Performed By: #### H EMDF, PT, BMP3M, PHOS3, MG3, CK3 #### [address] #### [id number] #### [place] [address] [place] [address] Calcium mass conc 8.6 mg/dL Normal 8.4-10.4 [facility] Comment on above: Performed By: #### H EMDF, PT, BMP3M, PHOS3, MG3, CK3 #### [address] #### VD25H #### [place] [address] [place] [address] CO2 molar conc 29 mmol/L Normal 22-30 [facility] Comment on above: Performed By: #### H EMDF, PT, BMP3M, PHOS3, MG3, CK3 #### [address] #### VD25H #### [facility] [address] [place] [address] Glucose mass conc 119 mg/dL High 70-100 [facility] Comment on above: Performed By: #### H EMDF, PT, BMP3M, PHOS3, MG3, CK3 #### [place] [address] [place] [address] #### VD25H #### [facility] [address] [place] [address] Urea nitrogen mass conc 23 mg/dL High 7-20 [facility] Comment on above: Performed By: #### H EMDF, PT, BMP3M, PHOS3, MG3, CK3 #### [place] [address] [place] [address] #### VD25H #### [place] [address] [place] [address] Creatinine mass conc 0.73 mg/dL Normal 0.52-1.25 [facility] Comment on above: Performed By: #### H EMDF, PT, BMP3M, PHOS3, MG3, CK3 #### [place] [address] [place] [address] #### VD25H #### [facility] [address] [place] [address] GFR/1.73 sq M predicted among blacks MDRD vol rate/area (S/P/Bld) mL/min/{1.73_m2} Normal >60 [facility] Comment on above: Performed By: #### H EMDF, PT, BMP3M, PHOS3, MG3, CK3 #### [address] [address] #### VD25H #### [place] [address] [place] [address] GFR/1.73 sq M predicted among non-blacks MDRD vol rate/area (S/P/Bld) mL/min/{1.73_m2} Normal >60 [facility] Comment on above: Result Comment: Sour ce- MDRD equation with creatinine calibration to IDMS(NKDEP) eGFR not recommended for drug dose adjustment Performed By: #### H EMDF, PT, BMP3M, PHOS3, MG3, CK3 #### [facility] [address] [place] [address] #### VD25H #### [facility] [address] [place] [address] Potassium molar conc 4.1 mmol/L Normal 3.5-5.1 [facility] Comment on above: Performed By: #### H EMDF, PT, BMP3M, PHOS3, MG3, CK3 #### [facility] [address] [place] #### VD25H #### [facility] [address] [place] [address] Sodium molar conc 144 mmol/L Normal 135-145 [facility] Comment on above: Performed By: #### H EMDF, PT, BMP3M, PHOS3, MG3, CK3 #### [facility] [address] [place] [address] #### VD25H #### [facility] [address] [place] [address] Chloride molar conc 107 mmol/L Normal 98-107 [facility] Comment on above: Performed By: #### H EMDF, PT, BMP3M, PHOS3, MG3, CK3 #### [facility] [address] [place] [address] #### VD25H #### [facility] [address] [place] [address] CR Abdomen APon 07-15-2018 CR Abdomen AP Patient Name: KATHYA HOOPER Diagnostic Radiology Exam Date/Time 07/15/2018 09:25:44 EDT Exam CR Abdomen AP Ordering Physician JOYA ROJAS Accession Number [id number] CPT4 Codes 75785 () Reason For Exam ileus Report EXAMINATION: [...] Transcribed Date and Time: 07/15/2018 10:07 Normal [facility] CR Chest Portableon 07-16-19 19 CR Chest Portable Patient Name: KATHYA HOOPER Diagnostic Radiology Exam Date/Time 07/15/2018 06:00:00 EDT Exam CR Chest Portable Ordering Physician MARIA EUGENIA PEREZ Accession Number [id number] CPT4 Codes 22380 () Reason For Exam ETT placement Report [...] Transcribed Date and Time: 07/15/2018 9:14 Normal [facility] CULT./ST. RESPIRATORYon 06-29 CULT./ST. RESPIRATORY CULT./ST. RESPIRAT ORY --> Status: F Moderate normal respiratory leizabeth. STAIN GRAM --> Status: F Many polymorphonuclear cells/lpf. Rare epithelial cells/lpf. Many gram positive bacilli. Few gram positive cocci in pairs and chains. Few gram positive cocci in clusters. Rare gram negative bacilli. Rare epithelial cells/lpf. Many gram positive bacilli. Few gram positive cocci in pairs and chains. Few gram positive cocci in clusters. Rare gram negative bacilli. Normal [facility] Comment on above: Order Comment: Speci men Source Comment:Sputum, Suctioned Performed By: #### H EMDF, PT, BMP3M, PHOS3, MG3, CK3 #### [facility] [address] [place], [place] #### VD25H #### [facility] [address] [place] [address] Hemogram w/ Autodiffon 07-15 Abs Baso Cnt 0.0 10*3/uL Normal 0.0-0.2 [facility] Comment on above: Performed By: #### H EMDF, PT, BMP3M, PHOS3, MG3, CK3 #### [facility] [address] [place], [place] #### VD25H #### [facility] [address] [place] [address] Abs Neutrophile Cnt 13.2 10*3/uL High 1.8-7.0 [facility] Comment on above: Performed By: #### H EMDF, PT, BMP3M, PHOS3, MG3, CK3 #### [address] #### VD25H #### [facility] [address] [place] [address] Basophils/100 WBC (Bld) 0.2 % Normal 0.0-2.0 [facility] Comment on above: Performed By: #### H EMDF, PT, BMP3M, PHOS3, MG3, CK3 #### [address] #### VD25H #### [facility] [address] [place] [address] Eosinophils #/vol (Bld) 0.0 10*3/uL Normal 0.0-0.5 [facility] Comment on above: Performed By: #### H EMDF, PT, BMP3M, PHOS3, MG3, CK3 #### [facility] [address] [place] #### VD25H #### [facility] [address] [place] [address] Eosinophils/100 WBC (Bld) 0.1 % Low 1.0-6.0 [facility] Comment on above: Performed By: #### H EMDF, PT, BMP3M, PHOS3, MG3, CK3 #### [address] #### VD25H #### [facility] [address] [place] [address] Erythrocyte distribution width Ratio (RBC) 13.9 % Normal 11.5-14.5 [facility] Comment on above: Performed By: #### H EMDF, PT, BMP3M, PHOS3, MG3, CK3 #### [address] #### VD25H #### [facility] [address] [place] [address] Granulocytes/100 WBC (Bld) 88.1 % High 40.0-80.0 [facility] Comment on above: Performed By: #### H EMDF, PT, BMP3M, PHOS3, MG3, CK3 #### [address] #### VD25H #### [facility] [address] [place] [address] Hematocrit Volume Fraction (Bld) 35.3 % Low 40.0-52.0 [facility] Comment on above: Performed By: #### H EMDF, PT, BMP3M, PHOS3, MG3, CK3 #### [address] #### VD25H #### [facility] [address] [place] [address] Hemoglobin mass conc (Bld) 11.9 g/dL Low 13.0-18.0 [facility] Comment on above: Performed By: #### H EMDF, PT, BMP3M, PHOS3, MG3, CK3 #### [address] #### VD25H #### [facility] [address] [place] [address] Lymphocytes #/vol (Bld) 0.8 10*3/uL Low 1.0-4.3 [facility] Comment on above: Performed By: #### H EMDF, PT, BMP3M, PHOS3, MG3, CK3 #### [address] #### VD25H #### [place] [address] [place] [address] Lymphocytes/100 WBC (Bld) 5.0 % Low 20.0-40.0 [facility] Comment on above: Performed By: #### H EMDF, PT, BMP3M, PHOS3, MG3, CK3 #### [address] #### VD25H #### [facility] [address] [place] [address] MCH Entitic mass (RBC) 29.5 pg Normal 26.0-34.0 [facility] Comment on above: Performed By: #### H EMDF, PT, BMP3M, PHOS3, MG3, CK3 #### [address] #### VD25H #### [facility] [address] [place] [address] MCHC mass conc (RBC) 33.8 % Normal 32.0-36.0 [facility] Comment on above: Performed By: #### H EMDF, PT, BMP3M, PHOS3, MG3, CK3 #### [address] #### VD25H #### [facility] [address] [place] [address] MCV Entitic volume (RBC) 87.2 fL Normal 80.0-98.0 [facility] Comment on above: Performed By: #### H EMDF, PT, BMP3M, PHOS3, MG3, CK3 #### [address] #### VD25H #### [facility] [address] [place] [address] Monocytes #/vol (Bld) 1.0 10*3/uL High 0.0-0.8 [facility] Comment on above: Performed By: #### H EMDF, PT, BMP3M, PHOS3, MG3, CK3 #### [address] #### VD25H #### [place] [address] [place] [address] Monocytes/100 WBC (Bld) 6.6 % Normal 2.0-10.0 [facility] Comment on above: Performed By: #### H EMDF, PT, BMP3M, PHOS3, MG3, CK3 #### [address] #### VD25H #### [facility] [address] [place] [address] Platelet mean volume Entitic volume (Bld) 7.9 fL Normal 7.4-10.4 [facility] Comment on above: Performed By: #### H EMDF, PT, BMP3M, PHOS3, MG3, CK3 #### [address] #### VD25H #### [facility] [address] [place] [address] Platelets #/vol (Bld) 319 10*3/uL Normal 140-440 [facility] Comment on above: Performed By: #### H EMDF, PT, BMP3M, PHOS3, MG3, CK3 #### [address] #### VD25H #### [place] [address] [place] [address] RBC #/vol (Bld) 4.05 10*6/uL Low 4.40-5.90 [facility] Comment on above: Performed By: #### H EMDF, PT, BMP3M, PHOS3, MG3, CK3 #### [address] #### VD25H #### [place] [address] [place] [address] WBC #/vol (Bld) 15.0 10*3/uL High 3.6-10.7 [facility] Comment on above: Performed By: #### H EMDF, PT, BMP3M, PHOS3, MG3, CK3 #### [address] #### VD25H #### [place] [address] [place] [address] Basic Metabolic Panelon 06-29 Anion gap molar conc 9 Normal [facility] Comment on above: Performed By: #### H EMDF, PT, BMP3M, PHOS3, MG3, CK3 #### [address] #### VD25H #### [place] [address] [place] [address] Calcium mass conc 7.6 mg/dL Low 8.4-10.4 [facility] Comment on above: Performed By: #### H EMDF, PT, BMP3M, PHOS3, MG3, CK3 #### [address] #### VD25H #### [place] [address] [place] [address] CO2 molar conc 26 mmol/L Normal 22-30 [facility] Comment on above: Performed By: #### H EMDF, PT, BMP3M, PHOS3, MG3, CK3 #### [address] [place] #### VD25H #### [facility] [address] [place] [address] Glucose mass conc 148 mg/dL High 70-100 [facility] Comment on above: Performed By: #### H EMDF, PT, BMP3M, PHOS3, MG3, CK3 #### [place] [address] [place] #### VD25H #### [facility] [address] [place] [address] Urea nitrogen mass conc 16 mg/dL Normal 7-20 [facility] Comment on above: Performed By: #### H EMDF, PT, BMP3M, PHOS3, MG3, CK3 #### [address] #### VD25H #### [facility] [address] [place] [address] Creatinine mass conc 0.62 mg/dL Normal 0.52-1.25 [facility] Comment on above: Performed By: #### H EMDF, PT, BMP3M, PHOS3, MG3, CK3 #### [address] #### VD25H #### [facility] [address] [place] [address] GFR/1.73 sq M predicted among blacks MDRD vol rate/area (S/P/Bld) mL/min/{1.73_m2} Normal >60 [facility] Comment on above: Performed By: #### H EMDF, PT, BMP3M, PHOS3, MG3, CK3 #### [address] #### VD25H #### [facility] [address] [place] [address] GFR/1.73 sq M predicted among non-blacks MDRD vol rate/area (S/P/Bld) mL/min/{1.73_m2} Normal >60 [facility] Comment on above: Result Comment: Sour ce- MDRD equation with creatinine calibration to IDMS(NKDEP) eGFR not recommended for drug dose adjustment Performed By: #### H EMDF, PT, BMP3M, PHOS3, MG3, CK3 #### [facility] [address] [place] [address] #### VD25H #### [facility] [address] [place] [address] Potassium molar conc 4.5 mmol/L Normal 3.5-5.1 [facility] Comment on above: Performed By: #### H EMDF, PT, BMP3M, PHOS3, MG3, CK3 #### [facility] [address] [place] [address] #### VD25H #### [facility] [address] [place] [address] Sodium molar conc 137 mmol/L Normal 135-145 [facility] Comment on above: Performed By: #### H EMDF, PT, BMP3M, PHOS3, MG3, CK3 #### [facility] [address] [facility] [place] [address] #### VD25H #### [facility] [address] [place] [address] Chloride molar conc 103 mmol/L Normal 98-107 [facility] Comment on above: Performed By: #### H EMDF, PT, BMP3M, PHOS3, MG3, CK3 #### [facility] [address] [place] [address] #### VD25H #### [facility] [address] [place] [address] CR Abdomen APon 07-14-2018 CR Abdomen AP Patient Name: KATHYA HOOPER Diagnostic Radiology Exam Date/Time 07/14/2018 19:15:43 EDT Exam CR Abdomen AP Ordering Physician JOYA ROJAS Accession Number [id number] CPT4 Codes 15989 () Reason For Exam Distended with emesis [...] Transcribed Date and Time: 07/14/2018 7:28 Normal [facility] CR Chest Portableon 07-15-19 19 CR Chest Portable Patient Name: KATHYA HOOPER Diagnostic Radiology Exam Date/Time 07/14/2018 06:53:29 EDT Exam CR Chest Portable Ordering Physician MARIA EUGENIA PEREZ Accession Number [id number] CPT4 Codes 34555 () Reason For Exam ETT placement Report [...] Transcribed Date and Time: 07/14/2018 11:51 Normal [facility] Hemogram w/ Autodiffon 07-14 Abs Baso Cnt 0.0 10*3/uL Normal 0.0-0.2 [facility] Comment on above: Performed By: #### H EMDF, PT, BMP3M, PHOS3, MG3, CK3 #### [facility] [address] [place] #### VD25H #### [facility] [address] [place] [address] Abs Neutrophile Cnt 11.7 10*3/uL High 1.8-7.0 [facility] Comment on above: Performed By: #### H EMDF, PT, BMP3M, PHOS3, MG3, CK3 #### [address] #### VD25H #### [facility] [address] [place] [address] Basophils/100 WBC (Bld) 0.3 % Normal 0.0-2.0 [facility] Comment on above: Performed By: #### H EMDF, PT, BMP3M, PHOS3, MG3, CK3 #### [address] #### VD25H #### [facility] [address] [place] [address] Eosinophils #/vol (Bld) 0.0 10*3/uL Normal 0.0-0.5 [facility] Comment on above: Performed By: #### H EMDF, PT, BMP3M, PHOS3, MG3, CK3 #### [address] [place], [place] #### VD25H #### [facility] [address] [place] [address] Eosinophils/100 WBC (Bld) 0.1 % Low 1.0-6.0 [facility] Comment on above: Performed By: #### H EMDF, PT, BMP3M, PHOS3, MG3, CK3 #### [address] #### VD25H #### [facility] [address] [place] [address] Erythrocyte distribution width Ratio (RBC) 13.8 % Normal 11.5-14.5 [facility] Comment on above: Performed By: #### H EMDF, PT, BMP3M, PHOS3, MG3, CK3 #### [address] #### VD25H #### [facility] [address] [place] [address] Granulocytes/100 WBC (Bld) 89.1 % High 40.0-80.0 [facility] Comment on above: Performed By: #### H EMDF, PT, BMP3M, PHOS3, MG3, CK3 #### [address] #### VD25H #### [facility] [address] [place] [address] Hematocrit Volume Fraction (Bld) 33.8 % Low 40.0-52.0 [facility] Comment on above: Performed By: #### H EMDF, PT, BMP3M, PHOS3, MG3, CK3 #### [address] #### VD25H #### [facility] [address] [place] [address] Hemoglobin mass conc (Bld) 11.5 g/dL Low 13.0-18.0 [facility] Comment on above: Performed By: #### H EMDF, PT, BMP3M, PHOS3, MG3, CK3 #### [address] #### VD25H #### [facility] [address] [place] [address] Lymphocytes #/vol (Bld) 0.6 10*3/uL Low 1.0-4.3 [facility] Comment on above: Performed By: #### H EMDF, PT, BMP3M, PHOS3, MG3, CK3 #### [address] #### VD25H #### [facility] [address] [place] [address] Lymphocytes/100 WBC (Bld) 4.5 % Low 20.0-40.0 [facility] Comment on above: Performed By: #### H EMDF, PT, BMP3M, PHOS3, MG3, CK3 #### [address] #### VD25H #### [facility] [address] [place] [address] MCH Entitic mass (RBC) 29.6 pg Normal 26.0-34.0 [facility] Comment on above: Performed By: #### H EMDF, PT, BMP3M, PHOS3, MG3, CK3 #### [address] #### VD25H #### [place] [address] [place] [address] MCHC mass conc (RBC) 33.9 % Normal 32.0-36.0 [facility] Comment on above: Performed By: #### H EMDF, PT, BMP3M, PHOS3, MG3, CK3 #### [address] #### VD25H #### [place] [address] [place] [address] MCV Entitic volume (RBC) 87.3 fL Normal 80.0-98.0 [facility] Comment on above: Performed By: #### H EMDF, PT, BMP3M, PHOS3, MG3, CK3 #### [address] #### VD25H #### [facility] [address] [place] [address] Monocytes #/vol (Bld) 0.8 10*3/uL Normal 0.0-0.8 [facility] Comment on above: Performed By: #### H EMDF, PT, BMP3M, PHOS3, MG3, CK3 #### [address] #### VD25H #### [facility] [address] [place] [address] Monocytes/100 WBC (Bld) 6.0 % Normal 2.0-10.0 [facility] Comment on above: Performed By: #### H EMDF, PT, BMP3M, PHOS3, MG3, CK3 #### [address] #### VD25H #### [facility] [address] [place] [address] Platelet mean volume Entitic volume (Bld) 8.1 fL Normal 7.4-10.[address] [facility] Comment on above: Performed By: #### H EMDF, PT, BMP3M, PHOS3, MG3, CK3 #### [address] #### VD25H #### [facility] [address] [place] [address] Platelets #/vol (Bld) 196 10*3/uL Normal 140-440 [facility] Comment on above: Performed By: #### H EMDF, PT, BMP3M, PHOS3, MG3, CK3 #### [address] #### VD25H #### [facility] [address] [place] [address] RBC #/vol (Bld) 3.87 10*6/uL Low 4.40-5.90 [facility] Comment on above: Performed By: #### H EMDF, PT, BMP3M, PHOS3, MG3, CK3 #### [address] #### VD25H #### [facility] [address] [place] [address] WBC #/vol (Bld) 13.2 10*3/uL High 3.6-10.[address] [facility] Comment on above: Performed By: #### H EMDF, PT, BMP3M, PHOS3, MG3, CK3 #### [place] [address] [place] #### VD25H #### [facility] [address] [place] [address] Add on test from HISon 07-13 Add on test from [facility] Rejected Normal [facility] Comment on above: Result Comment: No s pecimen available for addon. Performed By: #### H EMDF, PT, BMP3M, PHOS3, MG3, CK3 #### [place] [address] [place] #### VD25H #### [place] [address] [place] [address] Arterial Blood Gaseson 07-13 CO2 molar conc 25.6 mmol/L Normal 23.0-27.0 [facility] Comment on above: Performed By: #### H EMDF, PT, BMP3M, PHOS3, MG3, CK3 #### [address] [place], [place] #### VD25H #### [facility] [address] [place] [address] HCO3 molar conc (Bld) 24.5 mmol/L Normal 21.0-25.0 [facility] Comment on above: Performed By: #### H EMDF, PT, BMP3M, PHOS3, MG3, CK3 #### [place] [place] #### VD25H #### [facility] [address] [place] [address] Hemoglobin mass conc (Bld) 9.7 g/dL Normal ScreenOnly [facility] Comment on above: Performed By: #### H EMDF, PT, BMP3M, PHOS3, MG3, CK3 #### [address] #### VD25H #### [place] [address] [place] [address] Oxygen ppres (Bld) 99.9 mm[Hg] Normal 80.0-100.0 [facility] Comment on above: Performed By: #### H EMDF, PT, BMP3M, PHOS3, MG3, CK3 #### [address] [place], [place] #### VD25H #### [facility] [address] [place] [address] Oxygen saturation in Blood 97.5 % Normal 95.0-100.0 [facility] Comment on above: Performed By: #### H EMDF, PT, BMP3M, PHOS3, MG3, CK3 #### [address] #### VD25H #### [facility] [address] [place] [address] pCO2 36.0 mm[Hg] Normal 35.0-45.0 [facility] Comment on above: Performed By: #### H EMDF, PT, BMP3M, PHOS3, MG3, CK3 #### [address] #### VD25H #### [facility] [address] [place] [address] pH (Bld) 7.450 Normal 7.350-7.450 [facility] Comment on above: Performed By: #### H EMDF, PT, BMP3M, PHOS3, MG3, CK3 #### [address] #### VD25H #### [facility] [address] [place] [address] Std Base Excess 0.6 mmol/L Normal -3.0-3.0 [facility] Comment on above: Performed By: #### H EMDF, PT, BMP3M, PHOS3, MG3, CK3 #### [address] #### VD25H #### [facility] [address] [place] [address] FIO2 .50 Normal [facility] Comment on above: Performed By: #### H EMDF, PT, BMP3M, PHOS3, MG3, CK3 #### [place] [place] #### VD25H #### [facility] [address] [place] [address] Basic Metabolic Panelon 06-29 Calcium mass conc 7.6 mg/dL Low 8.4-10.4 [facility] Comment on above: Performed By: #### H EMDF, PT, BMP3M, PHOS3, MG3, CK3 #### [place] [place] #### VD25H #### [facility] [address] [place] [address] Glucose mass conc 120 mg/dL High 70-100 [facility] Comment on above: Performed By: #### H EMDF, PT, BMP3M, PHOS3, MG3, CK3 #### [place] [place] #### VD25H #### [facility] [address] [place] [address] Anion gap molar conc 7 Normal [facility] Comment on above: Performed By: #### H EMDF, PT, BMP3M, PHOS3, MG3, CK3 #### [address] #### VD25H #### [facility] [address] [place] [address] CO2 molar conc 27 mmol/L Normal 22-30 [facility] Comment on above: Performed By: #### H EMDF, PT, BMP3M, PHOS3, MG3, CK3 #### [place] [address] [facility], [place] #### VD25H #### [facility] [address] [place] [address] Creatinine mass conc 0.62 mg/dL Normal 0.52-1.25 [facility] Comment on above: Performed By: #### H EMDF, PT, BMP3M, PHOS3, MG3, CK3 #### [address] #### VD25H #### [facility] [address] [place] [address] GFR/1.73 sq M predicted among blacks MDRD vol rate/area (S/P/Bld) mL/min/{1.73_m2} Normal >60 [facility] Comment on above: Performed By: #### H EMDF, PT, BMP3M, PHOS3, MG3, CK3 #### [address] #### VD25H #### [facility] [address] [place] [address] GFR/1.73 sq M predicted among non-blacks MDRD vol rate/area (S/P/Bld) mL/min/{1.73_m2} Normal >60 [facility] Comment on above: Result Comment: Sour ce- MDRD equation with creatinine calibration to IDMS(NKDEP) eGFR not recommended for drug dose adjustment Performed By: #### H EMDF, PT, BMP3M, PHOS3, MG3, CK3 #### [address] #### VD25H #### [facility] [address] [place] [address] Urea nitrogen mass conc 17 mg/dL Normal 7-20 [facility] Comment on above: Performed By: #### H EMDF, PT, BMP3M, PHOS3, MG3, CK3 #### [address] #### VD25H #### [facility] [address] [place] [address] Chloride molar conc 105 mmol/L Normal 98-107 [facility] Comment on above: Performed By: #### H EMDF, PT, BMP3M, PHOS3, MG3, CK3 #### [address] #### VD25H #### [facility] [address] [place] [address] Potassium molar conc 3.8 mmol/L Normal 3.5-5.1 [facility] Comment on above: Performed By: #### H EMDF, PT, BMP3M, PHOS3, MG3, CK3 #### [facility] [address] [place] [address] #### VD25H #### [facility] [address] [place] [address] Sodium molar conc 139 mmol/L Normal 135-145 [facility] Comment on above: Performed By: #### H EMDF, PT, BMP3M, PHOS3, MG3, CK3 #### [facility] [address] [place] [address] #### VD25H #### [facility] [address] [place] [address] CR Chest Portableon 07-14-19 CR Chest Portable Patient Name: KATHYA HOOPER Diagnostic Radiology Exam Date/Time 07/13/2018 06:05:45 EDT Exam CR Chest Portable Ordering Physician MARIA EUGENIA PEREZ Accession Number [id number] CPT4 Codes 76561 () Reason For Exam ETT placement Report [...] Transcribed Date and Time: 07/13/2018 6:33 Normal [facility] Calcium,Ionizedon 07-13-2018 Ionized Ca,Measured 4.10 mg/dL Low 4.30-5.20 [facility] Comment on above: Performed By: #### H EMDF, PT, BMP3M, PHOS3, MG3, CK3 #### [address] #### [id number] #### [facility] [address] [place] [address] pH, Ionized Calcium 7.40 Normal 7.31-7.46 [facility] Comment on above: Performed By: #### H EMDF, PT, BMP3M, PHOS3, MG3, CK3 #### [address] #### [id number] #### [facility] [address] [place] [address] Hemogram w/ Autodiffon 07-13 Abs Baso Cnt 0.0 10*3/uL Normal 0.0-0.2 [facility] Comment on above: Performed By: #### H EMDF, PT, BMP3M, PHOS3, MG3, CK3 #### [address] #### [id number] #### [facility] [address] [place] [place] [address] Abs Neutrophile Cnt 11.2 10*3/uL High 1.8-7.0 [facility] Comment on above: Performed By: #### H EMDF, PT, BMP3M, PHOS3, MG3, CK3 #### [address] #### VD25H #### [facility] [address] [place] [address] Basophils/100 WBC (Bld) 0.3 % Normal 0.0-2.0 [facility] Comment on above: Performed By: #### H EMDF, PT, BMP3M, PHOS3, MG3, CK3 #### [place] [address] [address] [place], [place] #### VD25H #### [facility] [address] [place] [address] Eosinophils #/vol (Bld) 0.2 10*3/uL Normal 0.0-0.5 [facility] Comment on above: Performed By: #### H EMDF, PT, BMP3M, PHOS3, MG3, CK3 #### [address] #### VD25H #### [facility] [address] [place] [address] Eosinophils/100 WBC (Bld) 1.1 % Normal 1.0-6.0 [facility] Comment on above: Performed By: #### H EMDF, PT, BMP3M, PHOS3, MG3, CK3 #### [address] #### VD25H #### [facility] [address] [place] [address] Erythrocyte distribution width Ratio (RBC) 13.9 % Normal 11.5-14.5 [facility] Comment on above: Performed By: #### H EMDF, PT, BMP3M, PHOS3, MG3, CK3 #### [address] #### VD25H #### [facility] [address] [place] [address] Granulocytes/100 WBC (Bld) 82.2 % High 40.0-80.0 [facility] Comment on above: Performed By: #### H EMDF, PT, BMP3M, PHOS3, MG3, CK3 #### [address] #### VD25H #### [facility] [address] [place] [address] Hematocrit Volume Fraction (Bld) 36.7 % Low 40.0-52.0 [facility] Comment on above: Performed By: #### H EMDF, PT, BMP3M, PHOS3, MG3, CK3 #### [facility] [address] [place], [place] #### VD25H #### [facility] [address] [place] [address] Hemoglobin mass conc (Bld) 12.6 g/dL Low 13.0-18.0 [facility] Comment on above: Performed By: #### H EMDF, PT, BMP3M, PHOS3, MG3, CK3 #### [address] #### VD25H #### [facility] [address] [place] [address] Lymphocytes #/vol (Bld) 1.1 10*3/uL Normal 1.0-4.3 [facility] Comment on above: Performed By: #### H EMDF, PT, BMP3M, PHOS3, MG3, CK3 #### [address] #### VD25H #### [facility] [address] [place] [address] Lymphocytes/100 WBC (Bld) 8.2 % Low 20.0-40.0 [facility] Comment on above: Performed By: #### H EMDF, PT, BMP3M, PHOS3, MG3, CK3 #### [facility] [address] [place], [place] #### VD25H #### [facility] [address] [place] [address] MCH Entitic mass (RBC) 29.6 pg Normal 26.0-34.0 [facility] Comment on above: Performed By: #### H EMDF, PT, BMP3M, PHOS3, MG3, CK3 #### [address] #### VD25H #### [facility] [address] [place] [address] MCHC mass conc (RBC) 34.4 % Normal 32.0-36.0 [facility] Comment on above: Performed By: #### H EMDF, PT, BMP3M, PHOS3, MG3, CK3 #### [address] #### VD25H #### [facility] [address] [place] [address] MCV Entitic volume (RBC) 86.2 fL Normal 80.0-98.0 [facility] Comment on above: Performed By: #### H EMDF, PT, BMP3M, PHOS3, MG3, CK3 #### [address] #### VD25H #### [place] [address] [place] [address] Monocytes #/vol (Bld) 1.1 10*3/uL High 0.0-0.8 [facility] Comment on above: Performed By: #### H EMDF, PT, BMP3M, PHOS3, MG3, CK3 #### [address] #### VD25H #### [facility] [address] [place] [address] Monocytes/100 WBC (Bld) 8.2 % Normal 2.0-10.0 [facility] Comment on above: Performed By: #### H EMDF, PT, BMP3M, PHOS3, MG3, CK3 #### [address] #### VD25H #### [facility] [address] [place] [address] Platelet mean volume Entitic volume (Bld) 8.1 fL Normal 7.4-10.4 [facility] Comment on above: Performed By: #### H EMDF, PT, BMP3M, PHOS3, MG3, CK3 #### [address] #### VD25H #### [facility] [address] [place] [address] Platelets #/vol (Bld) 194 10*3/uL Normal 140-440 [facility] Comment on above: Performed By: #### H EMDF, PT, BMP3M, PHOS3, MG3, CK3 #### [facility] [address] [place] #### VD25H #### [facility] [address] [place] [address] RBC #/vol (Bld) 4.26 10*6/uL Low 4.40-5.90 [facility] Comment on above: Performed By: #### H EMDF, PT, BMP3M, PHOS3, MG3, CK3 #### [address] #### VD25H #### [facility] [address] [place] [address] WBC #/vol (Bld) 13.7 10*3/uL High 3.6-10.7 [facility] Comment on above: Performed By: #### H EMDF, PT, BMP3M, PHOS3, MG3, CK3 #### [address] #### VD25H #### [facility] [address] [place] [address] Arterial Blood Gaseson 07-12 CO2 molar conc 26.4 mmol/L Normal 23.0-27.0 [facility] Comment on above: Performed By: #### H EMDF, PT, BMP3M, PHOS3, MG3, CK3 #### [address] #### VD25H #### [facility] [address] [place] [address] HCO3 molar conc (Bld) 25.2 mmol/L High 21.0-25.0 [facility] Comment on above: Performed By: #### H EMDF, PT, BMP3M, PHOS3, MG3, CK3 #### [facility] [address] [place] #### VD25H #### [facility] [address] [place] [address] Hemoglobin mass conc (Bld) 13.9 g/dL Normal ScreenOnly [facility] Comment on above: Performed By: #### H EMDF, PT, BMP3M, PHOS3, MG3, CK3 #### [facility] [address] [place] #### VD25H #### [facility] [address] [place] [address] Oxygen ppres (Bld) 83.9 mm[Hg] Normal 80.0-100.0 [facility] Comment on above: Performed By: #### H EMDF, PT, BMP3M, PHOS3, MG3, CK3 #### [address] #### VD25H #### [facility] [address] [place] [address] Oxygen saturation in Blood 96.3 % Normal 95.0-100.0 [facility] Comment on above: Performed By: #### H EMDF, PT, BMP3M, PHOS3, MG3, CK3 #### [address] #### VD25H #### [facility] [address] [place] [address] pCO2 38.2 mm[Hg] Normal 35.0-45.0 [facility] Comment on above: Performed By: #### H EMDF, PT, BMP3M, PHOS3, MG3, CK3 #### [facility] [address] [place] #### VD25H #### [facility] [address] [place] [address] pH (Bld) 7.437 Normal 7.350-7.450 [facility] Comment on above: Performed By: #### H EMDF, PT, BMP3M, PHOS3, MG3, CK3 #### [address] [place], [place] #### VD25H #### [facility] [address] [place] [address] Std Base Excess 1.1 mmol/L Normal -3.0-3.0 [facility] Comment on above: Performed By: #### H EMDF, PT, BMP3M, PHOS3, MG3, CK3 #### [address] [place], [place] #### VD25H #### [facility] [address] [place] [address] FIO2 50% Normal [facility] Comment on above: Performed By: #### H EMDF, PT, BMP3M, PHOS3, MG3, CK3 #### [address] #### VD25H #### [place] [address] [place] [address] CO2 molar conc 27.2 mmol/L High 23.0-27.0 [facility] Comment on above: Performed By: #### H EMDF, PT, BMP3M, PHOS3, MG3, CK3 #### [address] #### VD25H #### [place] [address] [place] [address] HCO3 molar conc (Bld) 26.1 mmol/L High 21.0-25.0 [facility] Comment on above: Performed By: #### H EMDF, PT, BMP3M, PHOS3, MG3, CK3 #### [address] #### VD25H #### [place] [address] [place] [address] Hemoglobin mass conc (Bld) 14.7 g/dL Normal ScreenOnly [facility] Comment on above: Performed By: #### H EMDF, PT, BMP3M, PHOS3, MG3, CK3 #### [address] [place], [place] #### VD25H #### [facility] [address] [place] [address] Oxygen ppres (Bld) 125.7 mm[Hg] High 80.0-100.0 [facility] Comment on above: Performed By: #### H EMDF, PT, BMP3M, PHOS3, MG3, CK3 #### [place] [address] [place], [place] #### VD25H #### [facility] [address] [place] [address] Oxygen saturation in Blood 98.6 % Normal 95.0-100.0 [facility] Comment on above: Performed By: #### H EMDF, PT, BMP3M, PHOS3, MG3, CK3 #### [address] #### VD25H #### [facility] [address] [place] [address] pCO2 37.5 mm[Hg] Normal 35.0-45.0 [facility] Comment on above: Performed By: #### H EMDF, PT, BMP3M, PHOS3, MG3, CK3 #### [address] #### VD25H #### [facility] [address] [place] [address] pH (Bld) 7.460 High 7.350-7.450 [facility] Comment on above: Performed By: #### H EMDF, PT, BMP3M, PHOS3, MG3, CK3 #### [address] #### VD25H #### [facility] [address] [place] [address] Std Base Excess 2.4 mmol/L Normal -3.0-3.0 [facility] Comment on above: Performed By: #### H EMDF, PT, BMP3M, PHOS3, MG3, CK3 #### [facility] [address] [place] #### VD25H #### [facility] [address] [place] [address] FIO2 62.5 Normal [facility] Comment on above: Performed By: #### H EMDF, PT, BMP3M, PHOS3, MG3, CK3 #### [place] [address] [facility], [place] #### VD25H #### [facility] [address] [place] [address] Basic Metabolic Panelon 06-29 Anion gap molar conc 6 Normal [facility] Comment on above: Performed By: #### H EMDF, PT, BMP3M, PHOS3, MG3, CK3 #### [address] #### VD25H #### [facility] [address] [place] [address] Calcium mass conc 8.0 mg/dL Low 8.4-10.4 [facility] Comment on above: Performed By: #### H EMDF, PT, BMP3M, PHOS3, MG3, CK3 #### [place] [address] [facility], [place] #### VD25H #### [facility] [address] [place] [address] CO2 molar conc 28 mmol/L Normal 22-30 [facility] Comment on above: Performed By: #### H EMDF, PT, BMP3M, PHOS3, MG3, CK3 #### [address], [place] #### VD25H #### [facility] [address] [place] [address] Creatinine mass conc 0.62 mg/dL Normal 0.52-1.25 [facility] Comment on above: Performed By: #### H EMDF, PT, BMP3M, PHOS3, MG3, CK3 #### [place] [address] [place], [place] #### VD25H #### [facility] [address] [place] [address] GFR/1.73 sq M predicted among blacks MDRD vol rate/area (S/P/Bld) mL/min/{1.73_m2} Normal >60 [facility] Comment on above: Performed By: #### H EMDF, PT, BMP3M, PHOS3, MG3, CK3 #### [place] [address] [address] [place] #### VD25H #### [place] [address] [place] [address] GFR/1.73 sq M predicted among non-blacks MDRD vol rate/area (S/P/Bld) mL/min/{1.73_m2} Normal >60 [facility] Comment on above: Result Comment: Sour ce- MDRD equation with creatinine calibration to IDMS(NKDEP) eGFR not recommended for drug dose adjustment Performed By: #### H EMDF, PT, BMP3M, PHOS3, MG3, CK3 #### [place] [address] [place], [place] #### VD25H #### [place] [address] [place] [address] Glucose mass conc 125 mg/dL High 70-100 [facility] Comment on above: Performed By: #### H EMDF, PT, BMP3M, PHOS3, MG3, CK3 #### [place] [address] [place] #### VD25H #### [facility] [address] [place] [address] Urea nitrogen mass conc 12 mg/dL Normal 7-20 [facility] Comment on above: Performed By: #### H EMDF, PT, BMP3M, PHOS3, MG3, CK3 #### [place] [address] [place] #### VD25H #### [facility] [address] [place] [address] Chloride molar conc 104 mmol/L Normal 98-107 [facility] Comment on above: Performed By: #### H EMDF, PT, BMP3M, PHOS3, MG3, CK3 #### [facility] [address] [place] [address] #### VD25H #### [facility] [address] [place] [address] Potassium molar conc 3.6 mmol/L Normal 3.5-5.1 [facility] Comment on above: Performed By: #### H EMDF, PT, BMP3M, PHOS3, MG3, CK3 #### [facility] [address] [place] [address] #### VD25H #### [facility] [address] [place] [address] Sodium molar conc 138 mmol/L Normal 135-145 [facility] Comment on above: Performed By: #### H EMDF, PT, BMP3M, PHOS3, MG3, CK3 #### [facility] [address] [place] [address] #### VD25H #### [facility] [address] [place] [address] CR Chest Portableon 07-13-19 CR Chest Portable Patient Name: KATHYA HOOPER Diagnostic Radiology Exam Date/Time 07/12/2018 10:18:11 EDT Exam CR Chest Portable Ordering Physician MARIA EUGENIA PEREZ Accession Number [id number] CPT4 Codes 79056 () Reason For Exam ETT Placement Report [...] Transcribed Date and Time: 07/12/2018 1:21 Normal [facility] CR Chest Portable Patient Name: KATHYA HOOPER Diagnostic Radiology Exam Date/Time 07/12/2018 06:19:03 EDT Exam CR Chest Portable Ordering Physician MD NATE, [facility] Accession Number [id number] CPT4 Codes 41242 () Reason For Exam dyspnea Report PORTABLE [...] Transcribed Date and Time: 07/12/2018 8:01 Normal [facility] Hemogram w/ Autodiffon 07-12 Abs Baso Cnt 0.0 10*3/uL Normal 0.0-0.2 [facility] Comment on above: Performed By: #### H EMDF, PT, BMP3M, PHOS3, MG3, CK3 #### [facility] [address] [place] #### VD25H #### [facility] [address] [place] [address] Abs Neutrophile Cnt 10.2 10*3/uL High 1.8-7.0 [facility] Comment on above: Performed By: #### H EMDF, PT, BMP3M, PHOS3, MG3, CK3 #### [facility] [address] #### VD25H #### [facility] [address] [place] [address] Basophils/100 WBC (Bld) 0.4 % Normal 0.0-2.0 [facility] Comment on above: Performed By: #### H EMDF, PT, BMP3M, PHOS3, MG3, CK3 #### [address] #### VD25H #### [facility] [address] [facility] [place] [address] Eosinophils #/vol (Bld) 0.1 10*3/uL Normal 0.0-0.5 [facility] Comment on above: Performed By: #### H EMDF, PT, BMP3M, PHOS3, MG3, CK3 #### [address] #### VD25H #### [facility] [address] [place] [address] Eosinophils/100 WBC (Bld) 0.6 % Low 1.0-6.0 [facility] Comment on above: Performed By: #### H EMDF, PT, BMP3M, PHOS3, MG3, CK3 #### [address] #### VD25H #### [facility] [address] [place] [address] Erythrocyte distribution width Ratio (RBC) 13.5 % Normal 11.5-14.5 [facility] Comment on above: Performed By: #### H EMDF, PT, BMP3M, PHOS3, MG3, CK3 #### [address] #### VD25H #### [facility] [address] [place] [address] Granulocytes/100 WBC (Bld) 84.7 % High 40.0-80.0 [facility] Comment on above: Performed By: #### H EMDF, PT, BMP3M, PHOS3, MG3, CK3 #### [address] #### VD25H #### [facility] [address] [place] [address] Hematocrit Volume Fraction (Bld) 39.7 % Low 40.0-52.0 [facility] Comment on above: Performed By: #### H EMDF, PT, BMP3M, PHOS3, MG3, CK3 #### [address] #### VD25H #### [facility] [address] [place] [address] Hemoglobin mass conc (Bld) 13.5 g/dL Normal 13.0-18.0 [facility] Comment on above: Performed By: #### H EMDF, PT, BMP3M, PHOS3, MG3, CK3 #### [address] #### VD25H #### [facility] [address] [place] [address] Lymphocytes #/vol (Bld) 0.9 10*3/uL Low 1.0-4.3 [facility] Comment on above: Performed By: #### H EMDF, PT, BMP3M, PHOS3, MG3, CK3 #### [place] [address] [place], [place] #### VD25H #### [facility] [address] [place] [address] Lymphocytes/100 WBC (Bld) 7.6 % Low 20.0-40.0 [facility] Comment on above: Performed By: #### H EMDF, PT, BMP3M, PHOS3, MG3, CK3 #### [address] #### VD25H #### [facility] [address] [place] [address] MCH Entitic mass (RBC) 29.6 pg Normal 26.0-34.0 [facility] Comment on above: Performed By: #### H EMDF, PT, BMP3M, PHOS3, MG3, CK3 #### [address] #### VD25H #### [facility] [address] [place] [address] MCHC mass conc (RBC) 34.1 % Normal 32.0-36.0 [facility] Comment on above: Performed By: #### H EMDF, PT, BMP3M, PHOS3, MG3, CK3 #### [address] #### VD25H #### [facility] [address] [facility] [place] [address] MCV Entitic volume (RBC) 87.0 fL Normal 80.0-98.0 [facility] Comment on above: Performed By: #### H EMDF, PT, BMP3M, PHOS3, MG3, CK3 #### [address] #### VD25H #### [facility] [address] [place] [place] [address] Monocytes #/vol (Bld) 0.8 10*3/uL Normal 0.0-0.8 [facility] Comment on above: Performed By: #### H EMDF, PT, BMP3M, PHOS3, MG3, CK3 #### [facility] [address] [place], [place] #### VD25H #### [facility] [address] [place] [address] Monocytes/100 WBC (Bld) 6.7 % Normal 2.0-10.0 [facility] Comment on above: Performed By: #### H EMDF, PT, BMP3M, PHOS3, MG3, CK3 #### [address] #### VD25H #### [facility] [address] [place] [address] Platelet mean volume Entitic volume (Bld) 8.4 fL Normal 7.4-10.4 [facility] Comment on above: Performed By: #### H EMDF, PT, BMP3M, PHOS3, MG3, CK3 #### [address] #### VD25H #### [facility] [address] [place] [address] Platelets #/vol (Bld) 185 10*3/uL Normal 140-440 [facility] Comment on above: Performed By: #### H EMDF, PT, BMP3M, PHOS3, MG3, CK3 #### [address] #### VD25H #### [facility] [address] [place] [address] RBC #/vol (Bld) 4.57 10*6/uL Normal 4.40-5.90 [facility] Comment on above: Performed By: #### H EMDF, PT, BMP3M, PHOS3, MG3, CK3 #### [address] #### VD25H #### [facility] [address] [place] [address] WBC #/vol (Bld) 12.1 10*3/uL High 3.6-10.[address] [facility] Comment on above: Performed By: #### H EMDF, PT, BMP3M, PHOS3, MG3, CK3 #### [facility] [address] [place] [address] #### VD25H #### [facility] [address] [place] [address] VL Venous Duplex US Lower Ex t Bilateralon 07-12-2018 VL Venous Duplex US Lower Ext Bilateral Patient Name: KATHYA HOOPER Ultrasound Exam Date/Time 07/12/2018 17:20:46 EDT Exam VL Venous Duplex US Lower Ext Bilateral Ordering Physician MD AVELAR ADAM Accession Number [id number] CPT4 Codes 37933 () Reason For Exam leg swelling Report [facility] --- Lower Extremity Venous Duplex Report Patient Name: Kathya Hooper : 1955 Study Date: 07/12/2018 W (63yrs) Age: 63 Account: [id number] Gender: M Loc: T209 BP: Ordering: Joshua Avelar Technologist: Ordering Physician: Joshua Avelar Hoop Riveting Machine Operator: Elizabeth Sanford RVT Interpreting Physician: Krysta Arora --- Location: [facility] --- INDICATIONS: Edema. bilateral calves. [...] performed. The images were obtained using a [employer] E9 vascular ultrasound machine. --- VENOUS FLOW [...] ---------+-------+--- --+ Electronically signed by: Krysta Arora [id number] Final Dictated: 07/13/2018 8:45 am Dictating Physician: KRYSTA ARORA Signed Date and Time: 07/13/2018 8:45 am Signed by: KRYSTA ARORA [facility] Basic Metabolic Panelon 06-29 Calcium mass conc 7.8 mg/dL Low 8.4-10.4 [facility] Comment on above: Performed By: #### H EMDF, PT, BMP3M, PHOS3, MG3, CK3 #### [facility] [address] [facility], [place] #### VD25H #### [facility] [address] [place] [address] Anion gap molar conc 4 Normal [facility] Comment on above: Performed By: #### H EMDF, PT, BMP3M, PHOS3, MG3, CK3 #### [place] [address] [facility], [place] #### VD25H #### [facility] [address] [place] [address] CO2 molar conc 26 mmol/L Normal 22-30 [facility] Comment on above: Performed By: #### H EMDF, PT, BMP3M, PHOS3, MG3, CK3 #### [place] [address] [facility], [place] #### VD25H #### [facility] [address] [place] [address] Glucose mass conc 118 mg/dL High 70-100 [facility] Comment on above: Performed By: #### H EMDF, PT, BMP3M, PHOS3, MG3, CK3 #### [place] [address] [facility], [place] #### VD25H #### [facility] [address] [place] [address] Urea nitrogen mass conc 19 mg/dL Normal 7-20 [facility] Comment on above: Performed By: #### H EMDF, PT, BMP3M, PHOS3, MG3, CK3 #### [place] [address] [address] [facility], [place] #### VD25H #### [facility] [address] [place] [address] Creatinine mass conc 0.74 mg/dL Normal 0.52-1.25 [facility] Comment on above: Performed By: #### H EMDF, PT, BMP3M, PHOS3, MG3, CK3 #### [address] [address] #### VD25H #### [facility] [address] [place] [address] GFR/1.73 sq M predicted among blacks MDRD vol rate/area (S/P/Bld) mL/min/{1.73_m2} Normal >60 [facility] Comment on above: Performed By: #### H EMDF, PT, BMP3M, PHOS3, MG3, CK3 #### [address] #### VD25H #### [facility] [address] [place] [address] GFR/1.73 sq M predicted among non-blacks MDRD vol rate/area (S/P/Bld) mL/min/{1.73_m2} Normal >60 [facility] Comment on above: Result Comment: Sour ce- MDRD equation with creatinine calibration to IDMS(NKDEP) eGFR not recommended for drug dose adjustment Performed By: #### H EMDF, PT, BMP3M, PHOS3, MG3, CK3 #### [address] #### VD25H #### [facility] [address] [place] [address] Chloride molar conc 112 mmol/L High 98-107 [facility] Comment on above: Performed By: #### H EMDF, PT, BMP3M, PHOS3, MG3, CK3 #### [address] #### VD25H #### [facility] [address] [facility] [place] [address] Potassium molar conc 3.8 mmol/L Normal 3.5-5.1 [facility] Comment on above: Performed By: #### H EMDF, PT, BMP3M, PHOS3, MG3, CK3 #### [address] [place] [address] #### VD25H #### [facility] [address] [place] [address] Sodium molar conc 141 mmol/L Normal 135-145 [facility] Comment on above: Performed By: #### H EMDF, PT, BMP3M, PHOS3, MG3, CK3 #### [facility] [address] [place] [address] #### VD25H #### [facility] [address] [place] [address] CR Chest 1 View Frontalon CR Chest 1 View Frontal Patient Name: KATHYA FELDER Diagnostic Radiology Exam Date/Time 07/11/2018 06:36:48 EDT Exam CR Chest 1 View Frontal Ordering Physician MD AVELAR ADAM Accession Number [id number] CPT4 Codes 27276 () Reason For Exam dyspnea Report EXAM [...] Transcribed Date and Time: 07/11/2018 7:05 Normal [facility] Hemogram w/ Autodiffon 07-11 Abs Baso Cnt 0.0 10*3/uL Normal 0.0-0.2 [facility] Comment on above: Performed By: #### H EMDF, PT, BMP3M, PHOS3, MG3, CK3 #### [facility] [address] [place], [place] #### VD25H #### [facility] [address] [place] [address] Abs Neutrophile Cnt 8.8 10*3/uL High 1.8-7.0 [facility] Comment on above: Performed By: #### H EMDF, PT, BMP3M, PHOS3, MG3, CK3 #### [address] #### VD25H #### [facility] [address] [place] [address] Basophils/100 WBC (Bld) 0.4 % Normal 0.0-2.0 [facility] Comment on above: Performed By: #### H EMDF, PT, BMP3M, PHOS3, MG3, CK3 #### [address] #### VD25H #### [facility] [address] [place] [address] Eosinophils #/vol (Bld) 0.0 10*3/uL Normal 0.0-0.5 [facility] Comment on above: Performed By: #### H EMDF, PT, BMP3M, PHOS3, MG3, CK3 #### [address] #### [id number] #### [facility] [address] [place] [address] Eosinophils/100 WBC (Bld) 0.4 % Low 1.0-6.0 [facility] Comment on above: Performed By: #### H EMDF, PT, BMP3M, PHOS3, MG3, CK3 #### [address] #### [id number] #### [facility] [address] [place] [address] Erythrocyte distribution width Ratio (RBC) 13.7 % Normal 11.5-14.5 [facility] Comment on above: Performed By: #### H EMDF, PT, BMP3M, PHOS3, MG3, CK3 #### [place] [address] [address] [place], [place] #### [id number] #### [facility] [address] [place] [address] Granulocytes/100 WBC (Bld) 80.6 % High 40.0-80.0 [facility] Comment on above: Performed By: #### H EMDF, PT, BMP3M, PHOS3, MG3, CK3 #### [address] [place], [place] #### [id number] #### [facility] [address] [place] [address] Hematocrit Volume Fraction (Bld) 32.8 % Low 40.0-52.0 [facility] Comment on above: Performed By: #### H EMDF, PT, BMP3M, PHOS3, MG3, CK3 #### [address] [place], [place] #### VD25H #### [facility] [address] [place] [address] Hemoglobin mass conc (Bld) 11.4 g/dL Low 13.0-18.0 [facility] Comment on above: Performed By: #### H EMDF, PT, BMP3M, PHOS3, MG3, CK3 #### [address] #### VD25H #### [facility] [address] [place] [address] Lymphocytes #/vol (Bld) 1.3 10*3/uL Normal 1.0-4.3 [facility] Comment on above: Performed By: #### H EMDF, PT, BMP3M, PHOS3, MG3, CK3 #### [address] [place], [place] #### VD25H #### [facility] [address] [place] [address] Lymphocytes/100 WBC (Bld) 11.5 % Low 20.0-40.0 [facility] Comment on above: Performed By: #### H EMDF, PT, BMP3M, PHOS3, MG3, CK3 #### [place] [address] [place], [place] #### VD25H #### [facility] [address] [place] [address] MCH Entitic mass (RBC) 30.2 pg Normal 26.0-34.0 [facility] Comment on above: Performed By: #### H EMDF, PT, BMP3M, PHOS3, MG3, CK3 #### [address] #### VD25H #### [place] [address] [place] [address] MCHC mass conc (RBC) 34.7 % Normal 32.0-36.0 [facility] Comment on above: Performed By: #### H EMDF, PT, BMP3M, PHOS3, MG3, CK3 #### [address] #### VD25H #### [facility] [address] [place] [address] MCV Entitic volume (RBC) 86.9 fL Normal 80.0-98.0 [facility] Comment on above: Performed By: #### H EMDF, PT, BMP3M, PHOS3, MG3, CK3 #### [address] #### VD25H #### [facility] [address] [place] [address] Monocytes #/vol (Bld) 0.8 10*3/uL Normal 0.0-0.8 [facility] Comment on above: Performed By: #### H EMDF, PT, BMP3M, PHOS3, MG3, CK3 #### [address] [place] #### VD25H #### [facility] [address] [place] [address] Monocytes/100 WBC (Bld) 7.1 % Normal 2.0-10.0 [facility] Comment on above: Performed By: #### H EMDF, PT, BMP3M, PHOS3, MG3, CK3 #### [address] [address] [place] #### VD25H #### [facility] [address] [place] [address] Platelet mean volume Entitic volume (Bld) 8.8 fL Normal 7.4-10.4 [facility] Comment on above: Performed By: #### H EMDF, PT, BMP3M, PHOS3, MG3, CK3 #### [address] #### VD25H #### [facility] [address] [place] [address] Platelets #/vol (Bld) 158 10*3/uL Normal 140-440 [facility] Comment on above: Performed By: #### H EMDF, PT, BMP3M, PHOS3, MG3, CK3 #### [address] #### VD25H #### [facility] [address] [place] [address] RBC #/vol (Bld) 3.78 10*6/uL Low 4.40-5.90 [facility] Comment on above: Performed By: #### H EMDF, PT, BMP3M, PHOS3, MG3, CK3 #### [address] [place] #### VD25H #### [facility] [address] [place] [address] WBC #/vol (Bld) 10.9 10*3/uL High 3.6-10.7 [facility] Comment on above: Performed By: #### H EMDF, PT, BMP3M, PHOS3, MG3, CK3 #### [facility] [address] [place] #### VD25H #### [facility] [address] [place] [address] Magnesiumon 07-11-2018 Magnesium mass conc 2.3 mg/dL Normal 1.6-2.3 [facility] Comment on above: Performed By: #### H EMDF, PT, BMP3M, PHOS3, MG3, CK3 #### [address] [address] [address] [place] #### VD25H #### [facility] [address] [place] [address] Phosphoruson 07-11-2018 Phosphate mass conc 2.8 mg/dL Normal 2.5-4.5 [facility] Comment on above: Performed By: #### H EMDF, PT, BMP3M, PHOS3, MG3, CK3 #### [place] [address] [address] [facility], [place] #### VD25H #### [facility] [address] [place] [address] Basic Metabolic Panelon 06-29 Calcium mass conc 8.9 mg/dL Normal 8.4-10.4 [facility] Comment on above: Performed By: #### H EMDF, PT, BMP3M, PHOS3, MG3, CK3 #### [facility] [address] [facility], [place] #### VD25H #### [facility] [address] [place] [address] Glucose mass conc 133 mg/dL High 70-100 [facility] Comment on above: Performed By: #### H EMDF, PT, BMP3M, PHOS3, MG3, CK3 #### [address] [address] [facility], [place] #### VD25H #### [facility] [address] [place] [address] Anion gap molar conc 4 Normal [facility] Comment on above: Performed By: #### H EMDF, PT, BMP3M, PHOS3, MG3, CK3 #### [address] #### VD25H #### [facility] [address] [place] [address] CO2 molar conc 27 mmol/L Normal 22-30 [facility] Comment on above: Performed By: #### H EMDF, PT, BMP3M, PHOS3, MG3, CK3 #### [address] #### VD25H #### [facility] [address] [facility] [place] [address] Creatinine mass conc 0.69 mg/dL Normal 0.52-1.25 [facility] Comment on above: Performed By: #### H EMDF, PT, BMP3M, PHOS3, MG3, CK3 #### [address] #### VD25H #### [facility] [address] [place] [address] GFR/1.73 sq M predicted among blacks MDRD vol rate/area (S/P/Bld) mL/min/{1.73_m2} Normal >60 [facility] Comment on above: Performed By: #### H EMDF, PT, BMP3M, PHOS3, MG3, CK3 #### [address] #### VD25H #### [facility] [address] [place] [address] GFR/1.73 sq M predicted among non-blacks MDRD vol rate/area (S/P/Bld) mL/min/{1.73_m2} Normal >60 [facility] Comment on above: Result Comment: Sour ce- MDRD equation with creatinine calibration to IDMS(NKDEP) eGFR not recommended for drug dose adjustment Performed By: #### H EMDF, PT, BMP3M, PHOS3, MG3, CK3 #### [facility] [address] [facility], [place] #### VD25H #### [facility] [address] [place] [address] Urea nitrogen mass conc 16 mg/dL Normal 7-20 [facility] Comment on above: Performed By: #### H EMDF, PT, BMP3M, PHOS3, MG3, CK3 #### [place] [address] [address] [address] [facility], [place] #### VD25H #### [facility] [address] [place] [address] Potassium molar conc 4.1 mmol/L Normal 3.5-5.1 [facility] Comment on above: Performed By: #### H EMDF, PT, BMP3M, PHOS3, MG3, CK3 #### [address] [address] [address] [place] #### VD25H #### [facility] [address] [place] [address] Sodium molar conc 142 mmol/L Normal 135-145 [facility] Comment on above: Performed By: #### H EMDF, PT, BMP3M, PHOS3, MG3, CK3 #### [place] [address] [address] [facility], [place] #### VD25H #### [facility] [address] [place] [address] Chloride molar conc 110 mmol/L High 98-107 [facility] Comment on above: Performed By: #### H EMDF, PT, BMP3M, PHOS3, MG3, CK3 #### [place] [address] [address] [facility], [place] #### VD25H #### [facility] [address] [place] [address] [facility] CK enzyme act/vol 1291 U/L High 30-170 [facility] Comment on above: Performed By: #### H EMDF, PT, BMP3M, PHOS3, MG3, CK3 #### [address] [address] [place] [address] #### VD25H #### [facility] [address] [place] [address] CK enzyme act/vol 1382 U/L High 30-170 [facility] Comment on above: Performed By: #### H EMDF, PT, BMP3M, PHOS3, MG3, CK3 #### [facility] [address] [place] [address] #### VD25H #### [facility] [address] [place] [address] CR Chest 1 View Frontalon CR Chest 1 View Frontal Patient Name: KATHYA FELDER Diagnostic Radiology Exam Date/Time 07/10/2018 06:38:06 EDT Exam CR Chest 1 View Frontal Ordering Physician MD NATE, [facility] Accession Number [id number] CPT4 Codes 75740 () Reason For Exam dyspnea Report EXAMINATION: [...] Transcribed Date and Time: 07/10/2018 8:57 Normal [facility] Hemogram w/ Autodiffon 07-10 Abs Baso Cnt 0.0 10*3/uL Normal 0.0-0.2 [facility] Comment on above: Performed By: #### H EMDF, PT, BMP3M, PHOS3, MG3, CK3 #### [address] #### VD25H #### [facility] [address] [place] [address] Abs Neutrophile Cnt 12.2 10*3/uL High 1.8-7.0 [facility] Comment on above: Performed By: #### H EMDF, PT, BMP3M, PHOS3, MG3, CK3 #### [address] #### VD25H #### [facility] [address] [place] [address] Basophils/100 WBC (Bld) 0.3 % Normal 0.0-2.0 [facility] Comment on above: Performed By: #### H EMDF, PT, BMP3M, PHOS3, MG3, CK3 #### [address] #### VD25H #### [facility] [address] [place] [address] Eosinophils #/vol (Bld) 0.0 10*3/uL Normal 0.0-0.5 [facility] Comment on above: Performed By: #### H EMDF, PT, BMP3M, PHOS3, MG3, CK3 #### [address] #### VD25H #### [facility] [address] [place] [address] Eosinophils/100 WBC (Bld) 0.0 % Low 1.0-6.0 [facility] Comment on above: Performed By: #### H EMDF, PT, BMP3M, PHOS3, MG3, CK3 #### [address], [place] #### VD25H #### [facility] [address] [place] [address] Erythrocyte distribution width Ratio (RBC) 13.9 % Normal 11.5-14.5 [facility] Comment on above: Performed By: #### H EMDF, PT, BMP3M, PHOS3, MG3, CK3 #### [address] [address] [address] [place] #### VD25H #### [facility] [address] [place] [address] Granulocytes/100 WBC (Bld) 89.5 % High 40.0-80.0 [facility] Comment on above: Performed By: #### H EMDF, PT, BMP3M, PHOS3, MG3, CK3 #### [address] #### VD25H #### [facility] [address] [place] [address] Hematocrit Volume Fraction (Bld) 36.0 % Low 40.0-52.0 [facility] Comment on above: Performed By: #### H EMDF, PT, BMP3M, PHOS3, MG3, CK3 #### [address] [place] #### VD25H #### [facility] [address] [place] [address] Hemoglobin mass conc (Bld) 12.3 g/dL Low 13.0-18.0 [facility] Comment on above: Performed By: #### H EMDF, PT, BMP3M, PHOS3, MG3, CK3 #### [address] [address] [address] [place] #### VD25H #### [facility] [address] [place] [address] Lymphocytes #/vol (Bld) 0.6 10*3/uL Low 1.0-4.3 [facility] Comment on above: Performed By: #### H EMDF, PT, BMP3M, PHOS3, MG3, CK3 #### [address] #### VD25H #### [facility] [address] [place] [address] Lymphocytes/100 WBC (Bld) 4.3 % Low 20.0-40.0 [facility] Comment on above: Performed By: #### H EMDF, PT, BMP3M, PHOS3, MG3, CK3 #### [address] #### VD25H #### [facility] [address] [place] [address] MCH Entitic mass (RBC) 29.8 pg Normal 26.0-34.0 [facility] Comment on above: Performed By: #### H EMDF, PT, BMP3M, PHOS3, MG3, CK3 #### [address] #### VD25H #### [facility] [address] [place] [address] MCHC mass conc (RBC) 34.2 % Normal 32.0-36.0 [facility] Comment on above: Performed By: #### H EMDF, PT, BMP3M, PHOS3, MG3, CK3 #### [address] #### VD25H #### [facility] [address] [place] [address] MCV Entitic volume (RBC) 87.1 fL Normal 80.0-98.0 [facility] Comment on above: Performed By: #### H EMDF, PT, BMP3M, PHOS3, MG3, CK3 #### [address] #### VD25H #### [facility] [address] [place] [address] Monocytes #/vol (Bld) 0.8 10*3/uL Normal 0.0-0.8 [facility] Comment on above: Performed By: #### H EMDF, PT, BMP3M, PHOS3, MG3, CK3 #### [address] [place] #### VD25H #### [facility] [address] [place] [address] Monocytes/100 WBC (Bld) 5.9 % Normal 2.0-10.0 [facility] Comment on above: Performed By: #### H EMDF, PT, BMP3M, PHOS3, MG3, CK3 #### [address] [place] #### VD25H #### [facility] [address] [place] [address] Platelet mean volume Entitic volume (Bld) 8.4 fL Normal 7.4-10.4 [facility] Comment on above: Performed By: #### H EMDF, PT, BMP3M, PHOS3, MG3, CK3 #### [address] #### VD25H #### [facility] [address] [place] [address] Platelets #/vol (Bld) 155 10*3/uL Normal 140-440 [facility] Comment on above: Performed By: #### H EMDF, PT, BMP3M, PHOS3, MG3, CK3 #### [address] #### VD25H #### [facility] [address] [place] [address] RBC #/vol (Bld) 4.13 10*6/uL Low 4.40-5.90 [facility] Comment on above: Performed By: #### H EMDF, PT, BMP3M, PHOS3, MG3, CK3 #### [address] #### VD25H #### [facility] [address] [place] [address] WBC #/vol (Bld) 13.6 10*3/uL High 3.6-10.7 [facility] Comment on above: Performed By: #### H EMDF, PT, BMP3M, PHOS3, MG3, CK3 #### [address] [address] [address] [place] #### VD25H #### [facility] [address] [place] [address] Magnesiumon 07-10-2018 Magnesium mass conc 2.3 mg/dL Normal 1.6-2.3 [facility] Comment on above: Performed By: #### H EMDF, PT, BMP3M, PHOS3, MG3, CK3 #### [address] #### VD25H #### [facility] [address] [place] [address] Phosphoruson 07-10-2018 Phosphate mass conc 2.7 mg/dL Normal 2.5-4.5 [facility] Comment on above: Performed By: #### H EMDF, PT, BMP3M, PHOS3, MG3, CK3 #### [address] #### VD25H #### [facility] [address] [place] [address] Add on test from HISon 07-09 Add on test from HIS Accepted Normal [facility] Comment on above: Result Comment: Spec imen available & acceptable for analysis. Performed By: #### A DDON #### [address] Arterial Blood Gaseson 07-09 CO2 molar conc 24.5 mmol/L Normal 23.0-27.0 [facility] Comment on above: Performed By: #### H EMDF, PT, BMP3M, PHOS3, MG3, CK3 #### [address] #### VD25H #### [facility] [address] [place] [address] HCO3 molar conc (Bld) 23.2 mmol/L Normal 21.0-25.0 [facility] Comment on above: Performed By: #### H EMDF, PT, BMP3M, PHOS3, MG3, CK3 #### [address] #### VD25H #### [facility] [address] [place] [address] Hemoglobin mass conc (Bld) 15.7 g/dL Normal ScreenOnly [facility] Comment on above: Performed By: #### H EMDF, PT, BMP3M, PHOS3, MG3, CK3 #### [address] #### VD25H #### [facility] [address] [place] [address] Oxygen ppres (Bld) 397.4 mm[Hg] High 80.0-100.0 [facility] Comment on above: Performed By: #### H EMDF, PT, BMP3M, PHOS3, MG3, CK3 #### [address] #### VD25H #### [facility] [address] [place] [address] Oxygen saturation in Blood 99.2 % Normal 95.0-100.0 [facility] Comment on above: Performed By: #### H EMDF, PT, BMP3M, PHOS3, MG3, CK3 #### [address] #### VD25H #### [facility] [address] [place] [address] pCO2 42.3 mm[Hg] Normal 35.0-45.0 [facility] Comment on above: Performed By: #### H EMDF, PT, BMP3M, PHOS3, MG3, CK3 #### [address] #### VD25H #### [facility] [address] [place] [address] pH (Bld) 7.357 Normal 7.350-7.450 [facility] Comment on above: Performed By: #### H EMDF, PT, BMP3M, PHOS3, MG3, CK3 #### [address] [address] [address] [place] #### VD25H #### [facility] [address] [place] [address] Std Base Excess -2.3 mmol/L Normal -3.0-3.0 [facility] Comment on above: Performed By: #### H EMDF, PT, BMP3M, PHOS3, MG3, CK3 #### [address] #### VD25H #### [facility] [address] [place] [address] FIO2 100% Normal [facility] Comment on above: Performed By: #### H EMDF, PT, BMP3M, PHOS3, MG3, CK3 #### [address] #### VD25H #### [facility] [address] [place] [address] Basic Metabolic Panelon - Calcium mass conc 8.6 mg/dL Normal 8.4-10.4 [facility] Comment on above: Performed By: #### H EMDF, PT, BMP3M, PHOS3, MG3, CK3 #### [address] #### VD25H #### [facility] [address] [place] [address] Glucose mass conc 150 mg/dL High 70-100 [facility] Comment on above: Performed By: #### H EMDF, PT, BMP3M, PHOS3, MG3, CK3 #### [address] #### VD25H #### [facility] [address] [place] [address] Anion gap molar conc 7 Normal [facility] Comment on above: Performed By: #### H EMDF, PT, BMP3M, PHOS3, MG3, CK3 #### [address] [address] #### VD25H #### [facility] [address] [place] [address] CO2 molar conc 26 mmol/L Normal 22-30 [facility] Comment on above: Performed By: #### H EMDF, PT, BMP3M, PHOS3, MG3, CK3 #### [address] [address] #### VD25H #### [place] [address] [place] [address] Creatinine mass conc 0.80 mg/dL Normal 0.52-1.25 [facility] Comment on above: Performed By: #### H EMDF, PT, BMP3M, PHOS3, MG3, CK3 #### [address] #### VD25H #### [place] [address] [place] [address] GFR/1.73 sq M predicted among blacks MDRD vol rate/area (S/P/Bld) mL/min/{1.73_m2} Normal >60 [facility] Comment on above: Performed By: #### H EMDF, PT, BMP3M, PHOS3, MG3, CK3 #### [address] #### VD25H #### [address] [place] [address] GFR/1.73 sq M predicted among non-blacks MDRD vol rate/area (S/P/Bld) mL/min/{1.73_m2} Normal >60 [facility] Comment on above: Result Comment: Sour ce- MDRD equation with creatinine calibration to IDMS(NKDEP) eGFR not recommended for drug dose adjustment Performed By: #### H EMDF, PT, BMP3M, PHOS3, MG3, CK3 #### [address] #### VD25H #### [facility] [address] [place] [address] Urea nitrogen mass conc 16 mg/dL Normal 7-20 [facility] Comment on above: Performed By: #### H EMDF, PT, BMP3M, PHOS3, MG3, CK3 #### [facility] [address] [place] #### VD25H #### [facility] [address] [place] [address] Chloride molar conc 110 mmol/L High 98-107 [facility] Comment on above: Performed By: #### H EMDF, PT, BMP3M, PHOS3, MG3, CK3 #### [address] [address] [address] [place] #### VD25H #### [facility] [address] [place] [address] Potassium molar conc 4.7 mmol/L Normal 3.5-5.1 [facility] Comment on above: Performed By: #### H EMDF, PT, BMP3M, PHOS3, MG3, CK3 #### [address] [address] [place] #### VD25H #### [facility] [address] [place] [address] Sodium molar conc 143 mmol/L Normal 135-145 [facility] Comment on above: Performed By: #### H EMDF, PT, BMP3M, PHOS3, MG3, CK3 #### [address] [address] [address] [place] #### VD25H #### [facility] [address] [place] [address] CKon 07-09-2018 CK enzyme act/vol 1451 U/L High 30-170 [facility] Comment on above: Performed By: #### H EMDF, PT, BMP3M, PHOS3, MG3, CK3 #### [place] [address] [address] [place] #### VD25H #### [facility] [address] [place] [address] CK enzyme act/vol 3832 U/L High 30-170 [facility] Comment on above: Performed By: #### H EMDF, PT, BMP3M, PHOS3, MG3, CK3 #### [facility] [address] [place] [place] [address] #### VD25H #### [facility] [address] [place] [address] CR Chest 1 View Frontalon CR Chest 1 View Frontal Patient Name: KATHYA FELDER Diagnostic Radiology Exam Date/Time 07/09/2018 06:21:56 EDT Exam CR Chest 1 View Frontal Ordering Physician MD NATE, [facility] Accession Number [id number] CPT4 Codes 81524 () Reason For Exam dyspnea Report CHEST [...] Transcribed Date and Time: 07/09/2018 6:39 Normal [facility] CR Chest Portableon 07-10-19 19 CR Chest Portable Patient Name: KATHYA HOOPER Diagnostic Radiology Exam Date/Time 07/09/2018 11:34:09 EDT Exam CR Chest Portable Ordering Physician [id number] INDRA ACUNA Accession Number [id number] CPT4 Codes 17570 () Reason For Exam Central line placement [...] Transcribed Date and Time: 07/09/2018 1:01 Normal [facility] CR Chest Portable Patient Name: KATHYA HOOPER Diagnostic Radiology Exam Date/Time 07/09/2018 03:05:20 EDT Exam CR Chest Portable Ordering Physician MD NATE, [facility] Accession Number [id number] CPT4 Codes 94463 () Reason For Exam intubation Report CHEST PORTABLE: Indication: Inpatient; intubation Views: Portable frontal Comparison: 07/08/2018 at 22:16 Time: 07/09/2018 at 2:46 FINDINGS: Interval intubation with endotracheal tube approximately 4.2 cm above the level of the alma. An enteric tube has been placed with distal tip below the hemidiaphragm but excluded from [id number]. Cardiac monitoring wires and leads are present. [...] Transcribed Date and Time: 07/09/2018 3:10 Normal [facility] CR Chest Portable Patient Name: KATHYA HOOPER Diagnostic Radiology Exam Date/Time 07/08/2018 22:31:57 EDT Exam CR Chest Portable Ordering Physician MD NATE, NICOLE LEYDI Accession Number [id number] CPT4 Codes 75855 () Reason For Exam cough Report CHEST [...] Transcribed Date and Time: 07/08/2018 11:23 Normal [facility] CTA Head/Neck w/ + w/o contr birgit 07-09-2018 CTA Head/Neck w/ + w/o contrast Patient Name: KATHYA HOOPER CT Exam Date/Time 07/09/2018 04:42:10 EDT Exam CTA Head/Neck w/ + w/o contrast Ordering Physician MD RICKI, JORDAN Accession Number [id number] CPT4 Codes Q9967 (CT ISOVUE [id number]/[id number]), 30729 (), 98180 () Reason For Exam CERVICAL SPINE FRACTURE Report CLINICAL INFORMATION: C-spine fracture after trauma. Vascular injury suspected. CTA HEAD: After 75 ml Isovue IV contrast, 0.3 mm axial cuts were obtained through the brain. Coronal and sagittal reconstructions are reviewed. In addition, 3D images of the saxman of [place] were constructed by me and [...] by and reviewed simultaneously on the separate [employer] Workstation. The examination is compared to a [...] at 0735 hrs. Report Dictated on Workstation: [id number] Final Dictated: 07/09/2018 9:50 am Dictating Physician: MD JERNIGAN JEFFREY Signed Date and Time: 07/09/2018 10:26 am Signed by: MD JERNIGAN JEFFREY Transcribed Date and Time: 07/09/2018 9:50 Normal [facility] Hemogram w/ Autodiffon 07-09 Abs Baso Cnt 0.1 10*3/uL Normal 0.0-0.2 [facility] Comment on above: Performed By: #### H EMDF, PT, BMP3M, PHOS3, MG3, CK3 #### [facility] [address] [place], [place] #### VD25H #### [facility] [address] [place] [address] Abs Neutrophile Cnt 13.3 10*3/uL High 1.8-7.0 [facility] Comment on above: Performed By: #### H EMDF, PT, BMP3M, PHOS3, MG3, CK3 #### [address] #### VD25H #### [facility] [address] [place] [address] Basophils/100 WBC (Bld) 0.3 % Normal 0.0-2.0 [facility] Comment on above: Performed By: #### H EMDF, PT, BMP3M, PHOS3, MG3, CK3 #### [address] #### VD25H #### [facility] [address] [place] [address] Eosinophils #/vol (Bld) 0.0 10*3/uL Normal 0.0-0.5 [facility] Comment on above: Performed By: #### H EMDF, PT, BMP3M, PHOS3, MG3, CK3 #### [address] #### VD25H #### [facility] [address] [place] [address] Eosinophils/100 WBC (Bld) 0.0 % Low 1.0-6.0 [facility] Comment on above: Performed By: #### H EMDF, PT, BMP3M, PHOS3, MG3, CK3 #### [address] #### VD25H #### [facility] [address] [place] [address] Erythrocyte distribution width Ratio (RBC) 13.7 % Normal 11.5-14.5 [facility] Comment on above: Performed By: #### H EMDF, PT, BMP3M, PHOS3, MG3, CK3 #### [address] #### [id number] #### [facility] [address] [place] [address] Granulocytes/100 WBC (Bld) 86.5 % High 40.0-80.0 [facility] Comment on above: Performed By: #### H EMDF, PT, BMP3M, PHOS3, MG3, CK3 #### [address] #### [id number] #### [place] [address] [place] [address] Hematocrit Volume Fraction (Bld) 45.1 % Normal 40.0-52.0 [facility] Comment on above: Performed By: #### H EMDF, PT, BMP3M, PHOS3, MG3, CK3 #### [address] #### [id number] #### [facility] [address] [place] [address] Hemoglobin mass conc (Bld) 15.6 g/dL Normal 13.0-18.0 [facility] Comment on above: Performed By: #### H EMDF, PT, BMP3M, PHOS3, MG3, CK3 #### [address] #### [id number] #### [facility] [address] [place] [address] Lymphocytes #/vol (Bld) 0.8 10*3/uL Low 1.0-4.3 [facility] Comment on above: Performed By: #### H EMDF, PT, BMP3M, PHOS3, MG3, CK3 #### [address] #### [id number] #### [facility] [address] [place] [address] Lymphocytes/100 WBC (Bld) 5.5 % Low 20.0-40.0 [facility] Comment on above: Performed By: #### H EMDF, PT, BMP3M, PHOS3, MG3, CK3 #### [address] #### [id number] #### [facility] [address] [place] [address] MCH Entitic mass (RBC) 29.9 pg Normal 26.0-34.0 [facility] Comment on above: Performed By: #### H EMDF, PT, BMP3M, PHOS3, MG3, CK3 #### [address] #### [id number] #### [place] [address] [place] [address] MCHC mass conc (RBC) 34.5 % Normal 32.0-36.0 [facility] Comment on above: Performed By: #### H EMDF, PT, BMP3M, PHOS3, MG3, CK3 #### [address] #### VD25H #### [place] [address] [place] [address] MCV Entitic volume (RBC) 86.7 fL Normal 80.0-98.0 [facility] Comment on above: Performed By: #### H EMDF, PT, BMP3M, PHOS3, MG3, CK3 #### [address] #### VD25H #### [facility] [address] [place] [address] Monocytes #/vol (Bld) 1.2 10*3/uL High 0.0-0.8 [facility] Comment on above: Performed By: #### H EMDF, PT, BMP3M, PHOS3, MG3, CK3 #### [address] [place], [place] #### VD25H #### [facility] [address] [place] [address] Monocytes/100 WBC (Bld) 7.7 % Normal 2.0-10.0 [facility] Comment on above: Performed By: #### H EMDF, PT, BMP3M, PHOS3, MG3, CK3 #### [place] [address], [place] #### VD25H #### [facility] [address] [place] [address] Platelet mean volume Entitic volume (Bld) 8.1 fL Normal 7.4-10.4 [facility] Comment on above: Performed By: #### H EMDF, PT, BMP3M, PHOS3, MG3, CK3 #### [address] #### VD25H #### [facility] [address] [place] [address] Platelets #/vol (Bld) 197 10*3/uL Normal 140-440 [facility] Comment on above: Performed By: #### H EMDF, PT, BMP3M, PHOS3, MG3, CK3 #### [address] #### VD25H #### [facility] [address] [place] [address] RBC #/vol (Bld) 5.20 10*6/uL Normal 4.40-5.90 [facility] Comment on above: Performed By: #### H EMDF, PT, BMP3M, PHOS3, MG3, CK3 #### [address] #### VD25H #### [facility] [address] [place] [address] WBC #/vol (Bld) 15.4 10*3/uL High 3.6-10.7 [facility] Comment on above: Performed By: #### H EMDF, PT, BMP3M, PHOS3, MG3, CK3 #### [facility] [address] [place] [address] #### VD25H #### [facility] [address] [place] [address] MRI Spine Cervical w/o Contr birgit 07-09-2018 MRI Spine Cervical w/o Contrast Patient Name: KATHYA HOOPER MRI Exam Date/Time 07/09/2018 00:44:49 EDT Exam MRI Spine Cervical w/o Contrast Ordering Physician MD CHEYENNE, BRITTANY BERRY Accession Number [id number] CPT4 Codes 66083 () Reason For Exam CERVICAL SPINE FRACTURE [...] Transcribed Date and Time: 07/09/2018 7:45 Normal [facility] Magnesiumon 07-09-2018 Magnesium mass conc 2.2 mg/dL Normal 1.6-2.3 [facility] Comment on above: Performed By: #### H EMDF, PT, BMP3M, PHOS3, MG3, CK3 #### [address] [address] #### VD25H #### [facility] [address] [place] [address] Phosphoruson 07-09-2018 Phosphate mass conc 4.0 mg/dL Normal 2.5-4.5 [facility] Comment on above: Performed By: #### H EMDF, PT, BMP3M, PHOS3, MG3, CK3 #### [address] [address] #### VD25H #### [facility] [address] [place] [address] Prothrombin Timeon 9 INR Coag RelTime (PPP) 1.0 Normal 0.9-1.1 [facility] Comment on above: Result Comment: Yefri [...] EMDF, PT, BMP3M, PHOS3, MG3, CK3 #### [facility] [address] [place] [address] #### VD25H #### [facility] [address] [place] [address] Prothrombin time (PT) Coag time (PPP) 10.3 s Normal 9.0-12.0 [facility] Comment on above: Result Comment: . Performed By: #### H EMDF, PT, BMP3M, PHOS3, MG3, CK3 #### [facility] [address] [place] [address] #### VD25H #### [facility] [address] [place] [address] TS GELon 07-09-2018 TS GEL ABO Group: O Rh, Gel: POS Antibody Screen Gel: NEG Normal [facility] Comment on above: Performed By: #### T SGL #### [facility] [address] [place] [address] Vit D 25-OH, Totalon 019 Vit D 25-OH, Total 23 ng/mL Low 30-100 [facility] Comment on above: Result Comment: Ther apy is based on measurement of Total 25-OHD with the following classification levels: Less than 20 ng/mL: Indicative of Vit D deficiency 20-30 ng/mL: Suggests Vit D insufficiency Optimal: Greater than or equal to 30 ng/mL Test performed by [employer] Immunoassay, measuring Total Vitamin D, not individual fractions. Performed By: #### H EMDF, PT, BMP3M, PHOS3, MG3, CK3 #### [facility] [address] [place] [address] #### VD25H #### [facility] [address] [place] [address] Hematologyon 01-03-2003 Lymphocytes (Bld) [#/Vol] RECTUM, BIOPSY - BENIGN COLONIC MUCOSA WITH INTRAMUCOSAL LYMPHOID AGGREGATES. [facility] Otheron 01-03-2003 CONVERTED ELECTRONIC SIGNATURE BARBARA CASTILLO M.D., PATHOLOGIST (Electronic signature on file) Final Signed Out: 01/03/2003 15:09 [facility] CONVERTED ORDERING PROVIDER [facility]ing Provider[facility] Culture, urine Bacteria identified Cx Nom (U) Culture exhibits no growth. [facility] Work Phone: Vital Signs Date Time Vital Sign Value Performing Clinician Facility 10-02-2023 13:56-0400 Diastolic blood pressure 62 mm[Hg] Fei Farooq MD Work Phone: [facility] 10-02-2023 13:56-0400 Heart rate 104 /min Fei Farooq MD Work Phone: [facility] 10-02-2023 13:56-0400 SaO2% (BldA) [Mass fraction] 94 % Fei Farooq MD Work Phone: [facility] 10-02-2023 13:56-0400 Systolic blood pressure 124 mm[Hg] Fei Farooq MD Work Phone: [facility] 10-02-2023 11:13-0400 Respiratory rate 16 /min Fei Farooq MD Work Phone: [facility] 10-02-2023 09:47-0400 Body mass index (BMI) [Ratio] 26.19 kg/m2 Fei Farooq MD Work Phone: [facility] 10-02-2023 09:47-0400 Body temperature 98.01 [degF] Fei Farooq MD Work Phone: [facility] 10-02-2023 09:47-0400 Body weight 92.53 kg Fei Farooq MD Work Phone: [facility] 05-20-2022 18:30-0500 Body mass index (BMI) [Ratio] 26.32 kg/m2 Abelardo Gombash DO Work Phone: [employer] 05-20-2022 18:30-0500 Body temperature 97.3 [degF] Abelardo Gombash DO Work Phone: [employer] [facility] 05-20-2022 18:30-0500 Body weight 92.99 kg Abelardo Gombash DO Work Phone: [facility] 05-20-2022 18:30-0500 Diastolic blood pressure 108 mm[Hg] Abelardo Gombash DO Work Phone: [facility] 05-20-2022 18:30-0500 Heart rate 100 /min Abelardo Gombash DO Work Phone: [facility] 05-20-2022 18:30-0500 Respiratory rate 14 /min Abelardo Gombash DO Work Phone: [facility] 05-20-2022 18:30-0500 SaO2% (BldA) [Mass fraction] 98 % Abelardo Gombash DO Work Phone: [facility] 05-20-2022 18:30-0500 Systolic blood pressure 125 mm[Hg] Abelardo Gombash DO Work Phone: [facility] 05-15-2021 09:40-0500 Body height 188 cm Timothy Micheal DO Work Phone: [facility] 05-15-2021 09:40-0500 Body mass index (BMI) [Ratio] 23.75 kg/m2 Timothy Micheal DO Work Phone: [employer] 05-15-2021 09:40-0500 Body weight 83.92 kg Timothy Micheal DO Work Phone: [facility] 05-15-2021 09:38-0500 Body temperature 97.59 [degF] Timothy Micheal DO Work Phone: [employer] 05-15-2021 09:38-0500 Diastolic blood pressure 76 mm[Hg] Timothy Micheal DO Work Phone: [employer] 05-15-2021 09:38-0500 Heart rate 102 /min Timothy Micheal DO Work Phone: [employer] 05-15-2021 09:38-0500 Respiratory rate 16 /min Timothy Micheal DO Work Phone: [facility] 05-15-2021 09:38-0500 SaO2% (BldA) [Mass fraction] 99 % Timothy Micheal DO Work Phone: [facility] 05-15-2021 09:38-0500 Systolic blood pressure 115 mm[Hg] Timothy Micheal DO Work Phone: [facility] 03-24-2021 10:20-0500 Respiratory rate 18 /min Brady Nesheim DO Work Phone: [facility] 03-24-2021 10:20-0500 SaO2% (BldA) [Mass fraction] 94 % Brady Nesheim DO Work Phone: [facility] 03-24-2021 08:44-0500 Body temperature 97.7 [degF] Brady Nesheim DO Work Phone: [facility] 03-24-2021 08:44-0500 Diastolic blood pressure 55 mm[Hg] Brady Nesheim DO Work Phone: [facility] 03-24-2021 08:44-0500 Heart rate 85 /min Brady Nesheim DO Work Phone: [facility] 03-24-2021 08:44-0500 Systolic blood pressure 85 mm[Hg] Brady Nesheim DO Work Phone: [facility] 03-20-2021 13:41-0500 Body height 188 cm Brady Nesheim DO Work Phone: [facility] 03-20-2021 11:16-0500 Body mass index (BMI) [Ratio] 23.86 kg/m2 Brady Nesheim DO Work Phone: [facility] 03-20-2021 11:16-0500 Body weight 84.32 kg Brady Nesheim DO Work Phone: [facility] Comment on above: earlene Ingram RN (bed scal e measurement) on 03/20/2021 03-18-2021 15:02-0500 Body temperature 99.5 [degF] Boo Castro MD Work Phone: [facility] 03-18-2021 15:02-0500 Diastolic blood pressure 82 mm[Hg] Boo Castro MD Work Phone: [facility] 03-18-2021 15:02-0500 Heart rate 111 /min Boo Castro MD Work Phone: [facility] 03-18-2021 15:02-0500 Respiratory rate 18 /min Boo Castro MD Work Phone: [facility] 03-18-2021 15:02-0500 SaO2% (BldA) [Mass fraction] 93 % Boo Castro MD Work Phone: [facility] 03-18-2021 15:02-0500 Systolic blood pressure 111 mm[Hg] Boo Castro MD Work Phone: [facility] 10-30-2020 17:10-0400 Diastolic blood pressure 82 mm[Hg] Bethany Clemons MD [facility]: [facility] Work Phone: 10-30-2020 17:10-0400 Heart rate 110 /min Bethany Clemons MD Work Phone: [employer] Work Phone: 10-30-2020 17:10-0400 Respiratory rate 16 /min Bethany Clemons MD Work Phone: [employer] Work Phone: 10-30-2020 17:10-0400 SaO2% (BldA) [Mass fraction] 99 % Bethany Clemons MD Work Phone: [employer] Work Phone: 10-30-2020 17:10-0400 Systolic blood pressure 125 mm[Hg] Bethany Clemons MD Work Phone: [employer] Work Phone: 10-30-2020 13:02-0400 Body mass index (BMI) [Ratio] 24.65 kg/m2 Bethany Clemons MD Work Phone: [employer] Work Phone: 10-30-2020 13:02-0400 Body temperature 96.91 [degF] Bethany Clemons MD Work Phone: [employer] Work Phone: 10-30-2020 13:02-0400 Body weight 87.09 kg Bethany Clemons MD Work Phone: [facility] Work Phone: 09-22-2020 05:01-0400 Diastolic blood pressure 76 mm[Hg] Elizabeth Moura MD Work Phone: [facility] Work Phone: 09-22-2020 05:01-0400 Systolic blood pressure 114 mm[Hg] Elizabeth Moura MD Work Phone: [facility] Work Phone: 09-22-2020 00:26-0400 Body temperature 97.81 [degF] Elizabeth Moura MD Work Phone: [facility] Work Phone: 09-22-2020 00:26-0400 Heart rate 86 /min Elizabeth Moura MD Work Phone: [facility] Work Phone: 09-22-2020 00:26-0400 Respiratory rate 16 /min Elizabeth Moura MD Work Phone: [facility] Work Phone: 09-22-2020 00:26-0400 SaO2% (BldA) [Mass fraction] 98 % Elizabeth Moura MD Work Phone: [facility] Work Phone: 06-26-2020 21:50-0500 BP Diastolic 71 mm[Hg] Abelardo Gabriel [employer] [employer] Work Phone: 06-26-2020 21:50-0500 BP Systolic 118 mm[Hg] Abelardo Gabriel [employer] [employer] Work Phone: 06-26-2020 21:50-0500 Pulse (Heart Rate) [...] 98.49 [degF] Elizabeth Moura MD Work Phone: [facility] Work Phone: NEGATED: Highlighted [id number] 14:34-0500 BMI (Body Mass Index) 22.16 kg/m2 Ana Graham TRAVELING CLERK [facility] Work Phone: NEGATED: Highlighted [id number] 14:34-0500 Body weight 78.02 kg Ana Diesch TRAVELING CLERK [facility] Work Phone: NEGATED: Highlighted [id number] 14:34-0500 Body weight 78 kg Ana Diesch TRAVELING CLERK [facility] Work Phone: NEGATED: Highlighted [id number] 14:34-0500 BP Diastolic 66 mm[Hg] Ana Diesch TRAVELING CLERK [facility] Work Phone: NEGATED: Highlighted [id number] 14:34-0500 BP Systolic 102 mm[Hg] Ana Diesch TRAVELING CLERK [facility] Work Phone: NEGATED: Highlighted [id number] 14:34-0500 Height 187.96 cm Ana Diesch TRAVELING CLERK [facility] Work Phone: NEGATED: Highlighted [id number] 14:34-0500 Height 188 cm Ana Diesch TRAVELING CLERK [facility] Work Phone: NEGATED: Highlighted [id number] 14:34-0500 Pulse (Heart Rate) 104 /min Ana Diesch TRAVELING CLERK [facility] Work Phone: Encounters Encounter Date Encounter Type Care Provider Facility Start: 03-10-2025 ambulatory Renard Burgos [facility] Start: 03-03-2025 ambulatory Renard Burgos [facility] Fac[facility] lity:[facility] Start: 02-24-2025 ambulatory Renard Burgos [facility] Fac[facility] lity:[facility] Start: 02-21-2025 ambulatory Renard Burgos [facility] Fac[facility]ity:[facility] Start: 02-17-2025 ambulatory Renard Burgos [facility] Fac[facility] lity:[facility] Start: 02-10-2025 ambulatory Renard Burgos [facility] Fac[facility]ity:[facility] Start: 02-03-2025 Registered Referred Renard Burgos - [facility] Start: 02-03-2025 End: 02-03-2025 ambulatory Renard GARLAND Facility:[facility] Start: 01-27-2025 Registered Referred Renard Burgos - [facility] Start: 01-27-2025 End: 01-27-2025 ambulatory Renard Burgos OLS Facility:[facility] Start: 01-20-2025 Registered Referred Renard Burgos - [facility] Start: 01-20-2025 End: 01-20-2025 ambulatory Renard Burgos OLS Facility:[facility] Start: 01-13-2025 Registered Referred Renard Burgos - [facility] Start: 01-13-2025 End: 01-13-2025 ambulatory Renard GARLAND Facility:[facility] Start: 01-10-2025 Registered Referred Renard Amezquitaros - [facility] Start: 01-10-2025 End: 01-10-2025 ambulatory Renard GARLAND Facility:[facility] Start: 01-06-2025 Registered Referred Renard Amezquitaros - [facility] Start: 01-06-2025 End: 01-06-2025 ambulatory Renard GARLAND Facility:[facility] Start: 12-31-2024 Registered Referred Renard Burgos - [facility] Start: 12-31-2024 End: 12-31-2024 ambulatory Renard GARLAND Facility:[facility] Start: 12-23-2024 End: 12-23-2024 ambulatory Renard GARLAND -[facility] Start: 12-23-2024 End: 12-23-2024 Departed Referred Renard Amezquitaros -[facility] Start: 12-23-2024 End: 12-23-2024 ambulatory Renard Burgos OLS Facility:[facility] Start: 12-16-2024 ambulatory Renard GARLAND Faci lity:[facility] Start: 12-16-2024 Registered Referred Renard Amezquitaros - [facility] Start: 12-09-2024 ambulatory Renard GARLAND Faci lity:[facility] Start: 12-09-2024 Registered Referred Renard Burgos - [facility] Start: 12-02-2024 Registered Referred Renard Amezquitaros - [facility] Start: 12-02-2024 End: 12-02-2024 ambulatory Renard GARLAND Facility:[facility] Start: 11-25-2024 Registered Referred Renard Amezquitaros - [facility] Start: 11-25-2024 End: 11-25-2024 ambulatory Renard GARLAND Facility:[facility] Start: 11-18-2024 ambulatory Renard GARLAND Faci lity:[facility] Start: 11-18-2024 Registered Referred Renard Amezquitaros - [facility] Start: 11-11-2024 Registered Referred Renard Burgos - [facility] Start: 11-11-2024 End: 11-11-2024 ambulatory Renard GARLAND Facility:[facility] Start: 11-04-2024 Registered Referred Renard Burgos - [facility] Start: 11-04-2024 End: 11-04-2024 ambulatory Renard GARLAND Facility:[facility] Start: 10-28-2024 Registered Referred Renard Amezquitaros - [facility] Start: 10-28-2024 End: 10-28-2024 ambulatory Renard GARLAND Facility:[facility] Start: 10-21-2024 End: 10-21-2024 ambulatory Renard Burgos OLS -[facility] Start: 10-21-2024 End: 10-21-2024 Departed Referred Renard Burgos -[facility] Start: 10-21-2024 Registered Referred Renard Amezquitaros - [facility] Start: 10-21-2024 End: 10-21-2024 ambulatory Renard GARLAND Facility:[facility] Start: 10-14-2024 ambulatory Renard GARLAND Faci lity:[facility] Start: 10-14-2024 Registered Referred Renard Amezquitaros - [facility] Start: 10-07-2024 ambulatory Renard GARLAND Faci lity:[facility] Start: 10-07-2024 Registered Referred Renard Burgos - [facility] Start: 09-30-2024 ambulatory Renard GARLAND Faci lity:[facility] Start: 09-30-2024 Registered Referred Renard Burgos - [facility] Start: 09-24-2024 End: 09-24-2024 ambulatory Renard GARLAND -[facility] Start: 09-24-2024 End: 09-24-2024 Departed Referred Renard Burgos -[facility] Start: 09-24-2024 Registered Referred Renard Burgos - [facility] Start: 09-24-2024 End: 09-24-2024 ambulatory Renard GARLAND Facility:[facility] Start: 09-16-2024 End: 09-16-2024 ambulatory Renard GARLAND -[facility] Start: 09-16-2024 End: 09-16-2024 Departed Referred Renard Burgos -[facility] Start: 09-16-2024 Registered Referred Renard Burgos - [facility] Start: 09-16-2024 End: 09-16-2024 ambulatory Renard GARLAND Facility:[facility] Start: 09-11-2024 End: 09-11-2024 ambulatory Renard GARLAND [facility] Work Phone: Start: 09-11-2024 End: 09-11-2024 Departed Referred Renard Burgos -[facility] Start: 09-11-2024 Registered Referred Renard Burgos - [facility] Start: 09-11-2024 End: 09-11-2024 ambulatory Renard GARLAND Facility:[facility] Start: 09-09-2024 End: 09-09-2024 ambulatory Renard GARLAND [facility] Work Phone: Start: 09-09-2024 End: 09-09-2024 Departed Referred Renard Burgos -[facility] Start: 09-09-2024 Registered Referred Renard Burgos - [facility] Start: 09-09-2024 End: 09-09-2024 ambulatory Renard GARLAND Facility:[facility] Start: 09-02-2024 End: 09-02-2024 ambulatory Renard Shellierustam GARLAND [facility] Work Phone: Start: 09-02-2024 End: 09-02-2024 Departed Referred Renard Burgos -[facility] Start: 09-02-2024 Registered Referred Renard [facility] Start: 09-02-2024 End: 09-02-2024 ambulatory Renard GARLAND Facility:[facility] Start: 08-26-2024 End: 08-26-2024 ambulatory Renard GARLAND [facility] Work Phone: Start: 08-26-2024 End: 08-26-2024 Departed Referred Renard Burgos -[facility] Start: 08-26-2024 Registered Referred Renard Burgos - [facility] Start: 08-26-2024 End: 08-26-2024 ambulatory Renard GARLAND Facility:[facility] Start: 08-23-2024 End: 08-23-2024 Departed Referred Renard Burgos -[facility] Start: 08-23-2024 Registered Referred Renard [facility] Start: 08-23-2024 End: 08-23-2024 ambulatory Renard GARLAND Facility:[facility] Start: 08-19-2024 End: 08-19-2024 ambulatory Renard GARLAND [facility] Work Phone: Start: 08-19-2024 End: 08-19-2024 Departed Referred Renard Burgos -[facility] Start: 08-19-2024 Registered Referred Renard Burgos - [facility] Start: 08-19-2024 End: 08-19-2024 ambulatory Renard GARLAND Facility:[facility] Start: 08-12-2024 End: 08-12-2024 ambulatory Renard GARLAND [facility] Work Phone: Start: 08-12-2024 End: 08-12-2024 Departed Referred Peter Katsaros -[facility] Start: 08-12-2024 Registered Referred Renard Burgos - [facility] Start: 08-12-2024 End: 08-12-2024 ambulatory Renard GARLAND Facility:[facility] Start: 08-05-2024 End: 08-05-2024 Departed Referred Renard Burgos -[facility] Start: 08-05-2024 Registered Referred Renard Burgos - [facility] Start: 08-05-2024 End: 08-05-2024 ambulatory Renard GARLAND Facility:[facility] Start: 07-29-2024 End: 07-29-2024 ambulatory Renard GARLAND [facility] Work Phone: Start: 07-29-2024 End: 07-29-2024 Departed Referred Renard Burgos -[facility] Start: 07-29-2024 Registered Referred Renard Burgos - [facility] Start: 07-29-2024 End: 07-29-2024 ambulatory Renard GARLAND Facility:[facility] Start: 07-22-2024 End: 07-22-2024 ambulatory Renard GARLAND [facility] Work Phone: Start: 07-22-2024 End: 07-22-2024 Departed Referred Renard Burgso -[facility] Start: 07-22-2024 Registered Referred Renard Burgos - [facility] Start: 07-22-2024 End: 07-22-2024 ambulatory Renard GARLAND Facility:[facility] Start: 07-16-2024 End: 07-16-2024 ambulatory Renard GARLAND [facility] Work Phone: Start: 07-16-2024 End: 07-16-2024 Departed Referred Renard Burgos -[facility] Start: 07-16-2024 Registered Referred Renard Burgos - [facility] Start: 07-15-2024 End: 07-16-2024 ambulatory Renard GARLAND [facility] Work Phone: Start: 07-15-2024 End: 07-15-2024 Departed Referred Renard Hensleysaros -[facility] Start: 07-15-2024 Registered Referred Renard Shelliesaros - [facility] Start: 07-15-2024 End: 07-15-2024 ambulatory Renard GARLAND Facility:[facility] Start: 07-08-2024 End: 07-08-2024 ambulatory Renard GARLAND [facility] Work Phone: Start: 07-08-2024 End: 07-08-2024 Departed Referred Renard Hensleysaros -[facility] Start: 07-08-2024 Registered Referred Renard Hensleysaros - [facility] Start: 07-08-2024 End: 07-08-2024 ambulatory Renard GARLAND Facility:[facility] Start: 07-01-2024 End: 07-01-2024 ambulatory Renard GARLAND [facility] Work Phone: Start: 07-01-2024 End: 07-01-2024 Departed Referred Renrad Amezquitaros -[facility] Start: 07-01-2024 Registered Referred Renard Shelliesaros - [facility] Start: 07-01-2024 End: 07-01-2024 ambulatory Renard GARLAND Facility:[facility] Start: 06-27-2024 End: 06-27-2024 ambulatory Renard GARLAND [facility] Work Phone: Start: 06-27-2024 End: 06-27-2024 Departed Referred Renard Hensleysaros -[facility] Start: 06-27-2024 Registered Referred Renard Hensleysaros - [facility] Start: 06-27-2024 End: 06-27-2024 ambulatory Renard GARLAND Facility:[facility] Start: 06-24-2024 End: 06-24-2024 Subsequent hospital visit by physician Rashaad Pink NP Work Phone: [facility] Comment on above: Chronic cough Start: 06-24-2024 End: 06-24-2024 ambulatory ALONYuly SARAH [facility] Start: 06-24-2024 End: 06-24-2024 Departed Referred Renard Burgos -[facility] Start: 06-24-2024 Registered Referred Renard Burgos - [facility] Start: 06-24-2024 End: 06-24-2024 ambulatory Renard GARLAND Facility:[facility] Start: 06-17-2024 End: 06-17-2024 ambulatory Renard GARLAND [facility] Work Phone: Start: 06-17-2024 End: 06-17-2024 Departed Referred Renard Burgos -[facility] Start: 06-17-2024 Registered Referred Ren[facility] Burg[facility] - [facility] Start: 06-17-2024 End: 06-17-2024 ambulatory Renard GARLAND Facility:[facility] Start: 06-12-2024 End: 09-11-2024 Transcribe Orders Rashaad Contreraser [employer] Work Phone: [facility] Sched[facility] Comment on above: Chronic cough (Prima ry Dx) Start: 06-10-2024 End: 06-10-2024 ambulatory Renard GARLAND [facility] Work Phone: Start: 06-10-2024 End: 06-10-2024 Departed Referred Renard Burgos -[facility] Start: 06-10-2024 Registered Referred Renard Burgos - [facility] Start: 06-10-2024 End: 06-10-2024 ambulatory Renard GARLAND Facility:[facility] Start: 06-07-2024 End: 06-07-2024 ambulatory Renard GARLAND [facility] Work Phone: Start: 06-07-2024 End: 06-07-2024 Departed Referred Renard Burgos [facility] [employer] Start: 06-07-2024 Registered Referred Renard Burgos [facility] [employer] Start: 06-07-2024 End: 06-07-2024 ambulatory Renard GARLAND Facility:[facility] Start: 06-03-2024 End: 06-03-2024 ambulatory Renard GARLAND [facility] Work Phone: Start: 06-03-2024 End: 06-03-2024 Departed Referred Renard Burgos [facility] [facility] Start: 06-03-2024 End: 06-03-2024 ambulatory Renard GARLAND Facility:[facility] Start: 05-27-2024 End: 05-27-2024 Departed Referred Renard Burgos [facility] Start: 05-27-2024 End: 05-27-2024 ambulatory Renard GARLAND Facility:[facility] Start: 05-20-2024 End: 05-20-2024 Departed Referred Renard Burgos [facility] Start: 05-20-2024 End: 05-20-2024 ambulatory Renard GARLAND Facility:[facility] Start: 05-13-2024 End: 05-13-2024 Departed Referred Renard Burgos [facility] [facility] Start: 05-13-2024 End: 05-13-2024 ambulatory Renard GARLAND Facility:[facility] Start: 05-06-2024 End: 05-06-2024 Departed Referred Renard Burgos [facility] Start: 05-06-2024 End: 05-06-2024 ambulatory Renard GARLAND Facility:[facility] Start: 05-03-2024 End: 05-03-2024 Telephone encounter Renard Burgos Work Phone: [facility] Clinical Communication Comment on above: Other Start: 04-29-2024 End: 04-29-2024 Departed Referred Renard Amezquitaros [facility] Start: 04-29-2024 End: 04-29-2024 ambulatory Renard GARLAND Facility:[facility] Start: 04-22-2024 End: 04-22-2024 Departed Referred Renard Hensleysaros [facility] Start: 04-22-2024 End: 04-22-2024 ambulatory Renard GARLAND Facility:[facility] Start: 04-15-2024 End: 04-15-2024 Departed Referred Renard Burgos [facility] [facility] Start: 04-15-2024 End: 04-15-2024 ambulatory Renard GARLAND Facility:[facility] Start: 04-08-2024 ambulatory Renard GARLAND Faci lity:[facility] Start: 04-08-2024 Registered Referred Renard Burgos - [facility] [facility] Start: 04-01-2024 ambulatory Renard GARLAND Faci lity:[facility] Start: 04-01-2024 Registered Referred Renard Burgos - [facility] Start: 03-25-2024 End: 03-25-2024 Departed Referred Renard Burgos [facility] [facility] Start: 03-25-2024 End: 03-25-2024 ambulatory Renard GARLAND Facility:[facility] Start: 03-18-2024 End: 03-18-2024 Departed Referred Renard Burgos [facility] [facility] Start: 03-18-2024 End: 03-18-2024 ambulatory Renard GARLAND Facility:[facility] Start: 03-11-2024 End: 03-11-2024 Departed Referred Renard Burgos [facility] [facility] Start: 11-22-2023 End: 11-22-2023 ambulatory RENARD BURGOS [facility] Start: 11-22-2023 End: 11-22-2023 Subsequent hospital visit by physician Renard Burgos Work Phone: [facility] X-[facility] Imaging Comment on above: Dysphagia, oropharyn geal phase; Feeding difficulties Start: 10-16-2023 End: 01-15-2024 Transcribe Orders Renard Burgos Work Phone: [facility] Scheduling Comment on above: Dysphagia, oropharyn geal phase (Primary Dx); Feeding difficulties Start: 10-02-2023 End: 10-02-2023 Emergency department patient visit Fei Farooq MD Work Phone: [facility] ED Comment on above: Dyspnea, unspecified type (Primary Dx) Start: 08-07-2023 [facility] Start: 07-31-2023 End: 07-31-2023 ambulatory [facility] Work Phone: Start: 07-31-2023 End: 07-31-2023 [facility] Start: 07-31-2023 [facility] Start: 07-24-2023 End: 07-24-2023 ambulatory [facility] Work Phone: Start: 07-24-2023 End: 07-24-2023 [facility]ed [facility] Start: 07-17-2023 End: 07-17-2023 ambulatory [facility] Work Phone: Start: 07-17-2023 End: 07-17-2023 [facility] Start: 07-17-2023 [facility] Start: 07-10-2023 End: 07-10-2023 ambulatory [facility] Work Phone: Start: 07-10-2023 End: 07-10-2023 [facility] Start: 07-10-2023 [facility] Start: 07-03-2023 End: 07-03-2023 ambulatory [facility] Work Phone: Start: 07-03-2023 End: 07-03-2023 [facility] Start: 07-03-2023 [facility] Start: 06-26-2023 [facility] Start: 06-19-2023 End: 06-19-2023 ambulatory [facility] Work Phone: Start: 06-19-2023 End: 06-19-2023 Departed Referred [facility] Start: 06-19-2023 Registered Referred [facility] [facility] Start: 06-12-2023 End: 06-12-2023 ambulatory [facility] Work Phone: Start: 06-12-2023 End: 06-12-2023 [facility] Start: 06-12-2023 Registered Referred [facility] Start: 06-05-2023 End: 06-05-2023 ambulatory [facility] Work Phone: Start: 06-05-2023 End: 06-05-2023 [facility] Start: 06-05-2023 [facility] Start: 05-29-2023 End: 05-29-2023 [facility] Start: 05-29-2023 Registered Referred [facility] Start: 05-22-2023 End: 05-22-2023 ambulatory [facility] Work Phone: Start: 05-22-2023 End: 05-22-2023 [facility] Start: 05-22-2023 Registered Referred [facility] Start: 05-15-2023 End: 05-15-2023 [facility] Start: 05-15-2023 [facility] Start: 05-08-2023 End: 05-08-2023 ambulatory [facility] Work Phone: Start: 05-08-2023 End: 05-08-2023 [facility] Start: 04-17-2023 End: 04-17-2023 ambulatory [facility] Work Phone: Start: 04-17-2023 End: 04-17-2023 [facility] Start: 04-17-2023 Registered Referred [facility] Start: 04-14-2023 End: 04-14-2023 ambulatory [facility] Work Phone: Start: 04-14-2023 End: 04-14-2023 [facility] Start: 04-14-2023 Registered Referred [facility] Start: 04-10-2023 End: 04-10-2023 [facility] Start: 04-10-2023 [facility] Start: 04-03-2023 End: 04-03-2023 ambulatory [facility] Work Phone: Start: 04-03-2023 End: 04-03-2023 [facility] Start: 04-03-2023 Registered Referred [facility] Start: 03-27-2023 End: 03-27-2023 ambulatory [facility] Work Phone: Start: 03-27-2023 End: 03-27-2023 [facility] Start: 03-27-2023 [facility] Start: 03-20-2023 End: 03-20-2023 ambulatory [facility] Work Phone: Start: 03-20-2023 End: 03-20-2023 [facility] Start: 03-20-2023 [facility] Start: 03-16-2023 End: 03-16-2023 ambulatory [facility] Work Phone: Start: 03-16-2023 End: 03-16-2023 Departed Referred [facility] [employer] Start: 03-16-2023 Registered Referred [facility] [facility] Start: 03-13-2023 End: 03-13-2023 ambulatory [facility] Work Phone: Start: 03-13-2023 End: 03-13-2023 Departed Referred [facility] [employer] Start: 03-06-2023 End: 03-06-2023 ambulatory [facility] Work Phone: Start: 03-06-2023 End: 03-06-2023 Departed Referred [facility] [facility] Start: 03-06-2023 Registered Referred [facility] Start: 02-27-2023 End: 02-27-2023 ambulatory [facility] Work Phone: Start: 02-27-2023 End: 02-27-2023 Departed Referred [facility] Start: 02-20-2023 End: 02-20-2023 ambulatory [facility] Work Phone: Start: 02-20-2023 End: 02-20-2023 Departed Referred [facility] Start: 02-20-2023 Registered Referred [facility] Start: 02-13-2023 End: 02-13-2023 ambulatory [facility] Work Phone: Start: 02-13-2023 End: 02-13-2023 Departed Referred [facility] [employer] Start: 02-13-2023 Registered Referred [facility] [facility] Start: 02-06-2023 End: 02-06-2023 ambulatory [facility] Work Phone: Start: 02-06-2023 End: 02-06-2023 Departed Referred [facility] Start: 02-06-2023 Registered Referred [facility] [employer] [facility] Start: 01-30-2023 End: 01-30-2023 ambulatory [facility] Work Phone: Start: 01-30-2023 End: 01-30-2023 [facility] Start: 01-30-2023 [facility] Start: 01-23-2023 End: 01-23-2023 [facility] Start: 01-23-2023 [facility] Start: 01-16-2023 End: 01-16-2023 ambulatory [facility] Work Phone: Start: 01-16-2023 End: 01-16-2023 [facility] Start: 01-16-2023 [facility] Start: 01-09-2023 End: 01-09-2023 [facility] Start: 01-09-2023 [facility] Start: 01-03-2023 End: 01-03-2023 ambulatory [facility] Work Phone: Start: 01-03-2023 End: 01-03-2023 [facility] Start: 01-03-2023 [facility] Start: 12-26-2022 End: 12-26-2022 ambulatory [facility] Work Phone: Start: 12-26-2022 End: 12-26-2022 [facility] Start: 12-26-2022 [facility] Start: 12-19-2022 End: 12-19-2022 ambulatory [facility] Work Phone: Start: 12-19-2022 End: 12-19-2022 Departed Referred [facility] [employer] Start: 12-19-2022 Registered Referred [facility] [employer] [facility] Start: 12-12-2022 End: 12-12-2022 Departed Referred [facility] Start: 12-12-2022 Registered Referred [facility] [facility] Start: 12-05-2022 End: 12-05-2022 ambulatory [facility] Work Phone: Start: 12-05-2022 End: 12-05-2022 [facility] Start: 12-05-2022 Registered Referred [facility] [facility] Start: 11-28-2022 End: 11-28-2022 ambulatory [facility] Work Phone: Start: 11-28-2022 End: 11-28-2022 [facility] Start: 11-28-2022 Registered Referred [facility] [facility] Start: 11-21-2022 End: 11-21-2022 ambulatory [facility] Work Phone: Start: 11-21-2022 End: 11-21-2022 [facility] Start: 11-21-2022 Registered Referred [facility] Start: 11-14-2022 End: 11-14-2022 ambulatory [facility] Work Phone: Start: 11-14-2022 End: 11-14-2022 Departed Referred [facility] [employer] Start: 11-14-2022 Registered Referred [facility] Start: 11-07-2022 Registered Referred [facility] [employer] [facility] Start: 10-31-2022 End: 10-31-2022 ambulatory [facility] Work Phone: Start: 10-31-2022 End: 10-31-2022 Departed Referred [facility] [employer] Start: 10-31-2022 Registered Referred [facility] Start: 10-24-2022 End: 10-24-2022 ambulatory [facility] Work Phone: Start: 10-24-2022 End: 10-24-2022 Departed Referred [facility] [employer] Start: 10-24-2022 Registered Referred [facility] [employer] [facility] Start: 10-17-2022 End: 10-17-2022 Departed Referred [facility] Start: 10-17-2022 Registered Referred [facility] [facility] Start: 10-10-2022 End: 10-10-2022 ambulatory [facility] Work Phone: Start: 10-10-2022 End: 10-10-2022 Departed Referred [facility] [facility] Start: 10-10-2022 Registered Referred [facility] [facility] Start: 10-03-2022 End: 10-03-2022 ambulatory [facility] Work Phone: Start: 10-03-2022 End: 10-03-2022 Departed Referred [facility] [employer] Start: 09-19-2022 End: 09-19-2022 Departed Referred [facility] [facility] Start: 09-19-2022 Registered Referred [facility] [employer] [facility] Start: 09-12-2022 End: 09-12-2022 ambulatory [facility] Work Phone: Start: 09-12-2022 End: 09-12-2022 Departed Referred [facility] [employer] Start: 09-05-2022 End: 09-05-2022 Departed Referred [facility] [employer] Start: 09-05-2022 Registered Referred [facility] [employer] Start: 08-29-2022 End: 08-29-2022 Departed Referred [facility] [employer] Start: 08-29-2022 [facility]istered [facility] [employer] [facility] Start: 08-22-2022 End: 08-22-2022 ambulatory [facility] Work Phone: Start: 08-22-2022 End: 08-22-2022 Departed Referred [facility] [employer] Start: 08-22-2022 Registered Referred [facility] Start: 08-15-2022 End: 08-15-2022 ambulatory [facility] Work Phone: Start: 08-15-2022 End: 08-15-2022 [facility] Start: 08-15-2022 Registered Referred [facility] [employer] [facility] Start: 08-08-2022 End: 08-08-2022 Departed Referred [facility] [employer] [facility] Start: 08-08-2022 Registered Referred [facility] Start: 08-01-2022 End: 08-01-2022 ambulatory [facility] Work Phone: Start: 08-01-2022 End: 08-01-2022 Departed Referred [facility] [employer] Start: 08-01-2022 Registered [facility] Start: 07-25-2022 End: 07-25-2022 ambulatory [facility] Work Phone: Start: 07-25-2022 End: 07-25-2022 Departed Referred [facility] [facility] Start: 07-25-2022 Registered Referred [facility] Start: 07-19-2022 End: 07-19-2022 [facility] Start: 07-19-2022 Registered Referred [facility] [facility] Start: 07-18-2022 End: 07-18-2022 ambulatory [facility] Work Phone: Start: 07-18-2022 End: 07-18-2022 [facility] Start: 07-18-2022 Registered Referred [facility] [facility] Start: 07-11-2022 End: 07-11-2022 ambulatory [facility] Work Phone: Start: 07-11-2022 End: 07-11-2022 [facility] Start: 07-11-2022 [facility] Start: 07-04-2022 End: 07-04-2022 Dep[facility] Start: 07-04-2022 [facility] Start: 06-27-2022 End: 06-27-2022 ambulatory [facility] Work Phone: Start: 06-27-2022 End: 06-27-2022 [facility] Start: 06-27-2022 Reg[facility] Start: 06-20-2022 End: 06-20-2022 ambulatory [facility] Work Phone: Start: 06-20-2022 End: 06-20-2022 [facility] Start: 06-20-2022 Reg[facility] Start: 06-13-2022 End: 06-13-2022 ambulatory [facility] Work Phone: Start: 06-13-2022 End: 06-13-2022 [facility] Start: 06-13-2022 [facility] Start: 06-06-2022 End: 06-06-2022 Departed Referred [facility] Start: 06-06-2022 Registered Referred [facility] [facility] Start: 05-30-2022 End: 05-30-2022 ambulatory [facility] Work Phone: Start: 05-30-2022 End: 05-30-2022 Departed Referred [facility] Start: 05-23-2022 End: 05-23-2022 ambulatory [facility] Work Phone: Start: 05-23-2022 End: 05-23-2022 Departed Referred [facility] Start: 05-23-2022 Registered Referred [facility] Start: 05-20-2022 End: 05-20-2022 Emergency department patient visit Abelardo A Gabriel GOMEZ Work Phone: [facility] ED Comment on above: Dislodged gastrostom y tube (Primary Dx) Start: 05-16-2022 End: 05-16-2022 Departed Referred [facility] Start: 05-16-2022 [facility] Start: 05-09-2022 End: 05-09-2022 ambulatory [facility] Work Phone: Start: 05-09-2022 End: 05-09-2022 [facility] Start: 05-09-2022 [facility] Start: 05-03-2022 End: 05-03-2022 ambulatory [facility] Work Phone: Start: 05-03-2022 End: 05-03-2022 Departed Referred [facility] Start: 05-03-2022 Registered Referred [facility] Start: 04-26-2022 End: 04-26-2022 Departed Referred [facility] Start: 04-26-2022 [facility] Start: 04-18-2022 End: 04-18-2022 ambulatory [facility] Work Phone: Start: 04-18-2022 End: 04-18-2022 [facility] Start: 04-18-2022 [facility] Start: 04-14-2022 End: 04-14-2022 ambulatory [facility] Work Phone: Start: 04-14-2022 End: 04-14-2022 [facility] Start: 04-14-2022 Reg[facility] Start: 04-11-2022 End: 04-11-2022 ambulatory [facility] Work Phone: Start: 04-11-2022 End: 04-11-2022 [facility] Start: 04-11-2022 Reg[facility] Start: 04-04-2022 End: 04-04-2022 ambulatory [facility] Work Phone: Start: 04-04-2022 End: 04-04-2022 [facility] Start: 04-04-2022 Reg[facility] Start: 03-28-2022 End: 03-28-2022 ambulatory [facility] Work Phone: Start: 03-28-2022 End: 03-28-2022 [facility] Start: 03-28-2022 Reg[facility] Start: 03-21-2022 End: 03-21-2022 ambulatory [facility] Work Phone: Start: 03-21-2022 End: 03-21-2022 Departed Referred [facility] [facility] Start: 03-21-2022 Registered Referred [facility] Start: 03-14-2022 End: 03-14-2022 [facility] Start: 03-14-2022 Registered Referred [facility] Start: 2022 End: 2022 ambulatory [facility] Work Phone: Start: 2022 End: 2022 [facility] Start: 2022 [facility] [facility] Start: 02-28-2022 End: 02-28-2022 [facility] Start: 02-28-2022 Reg[facility] Start: 02-21-2022 End: 02-21-2022 ambulatory [facility] Work Phone: Start: 02-21-2022 End: 02-21-2022 [facility] Start: 02-21-2022 Registered Referred [facility] Start: 02-14-2022 End: 02-14-2022 ambulatory [facility] Work Phone: Start: 02-14-2022 End: 02-14-2022 [facility] [employer] Start: 02-14-2022 Registered [facility] [employer] [facility] Start: 02-07-2022 End: 02-07-2022 ambulatory [facility] Work Phone: Start: 02-07-2022 End: 02-07-2022 [facility]ed [facility] [employer] [facility] Start: 02-07-2022 Registered [facility] [employer] Start: 01-31-2022 End: 01-31-2022 ambulatory [facility] Work Phone: Start: 01-31-2022 End: 01-31-2022 [facility]ed [facility] Start: 01-31-[address]22 [facility] [employer] Start: 01-24-2022 End: 01-24-2022 ambulatory [facility] Work Phone: Start: 01-24-2022 End: 01-24-2022 [facility]ed [facility] [employer] [facility] Start: 01-24-2022 [facility] Start: 01-17-2022 End: 01-17-2022 [facility]ed [facility] [employer] [facility] Start: 01-17-2022 [facility] Start: 01-10-2022 End: 01-10-2022 ambulatory [facility] Work Phone: Start: 01-10-2022 End: 01-10-2022 [facility]ed [facility] Start: 01-10-2022 [facility] [employer] Start: 01-04-2022 End: 01-04-2022 ambulatory [facility] Work Phone: Start: 01-04-2022 End: 01-04-2022 [facility] Start: 01-04-2022 [facility] [employer] Start: 12-27-2021 End: 12-27-2021 ambulatory [facility] Work Phone: Start: 12-27-2021 End: 12-27-2021 [facility]ed [facility] [employer] [facility] Start: 12-27-2021 Reg[facility] Start: 12-20-2021 End: 12-20-2021 ambulatory [facility] Work Phone: Start: 12-20-2021 End: 12-20-2021 Departed Referred [facility] [employer] Start: 12-20-2021 Registered [facility] [employer] Start: 12-13-2021 End: 12-13-2021 [facility] Start: 12-13-2021 Registered [facility] [employer] Start: 12-06-2021 End: 12-06-2021 ambulatory [facility] Work Phone: Start: 12-06-2021 End: 12-06-2021 [facility] Start: 12-06-2021 [facility] Start: 11-29-2021 End: 11-29-2021 ambulatory [facility] Work Phone: Start: 11-29-2021 End: 11-29-2021 Departed [facility] [employer] Start: 11-29-2021 Registered Referred [facility] [employer] Start: 11-22-2021 End: 11-22-2021 Departed [facility] [employer] Start: 11-22-2021 Registered [facility] [employer] Start: 11-15-2021 End: 11-15-2021 Departed Referred [facility] [employer] Start: 11-15-2021 Registered Referred [facility] [employer] Start: 11-08-2021 End: 11-08-2021 [facility] [employer] [facility] Start: 10-25-2021 Registered Ref[facility] [employer] Start: 10-18-2021 [facility] Start: 10-11-2021 Registered [facility] [employer] Start: 10-04-2021 Registered Ref[facility] [employer] Start: 09-28-2021 End: 09-28-2021 Departed Referred [facility] [employer] Start: 09-28-2021 Registered [facility] [employer] Start: 09-20-2021 End: 09-20-2021 [facility]ed [facility] [facility] Start: 09-20-2021 Registered [facility] [employer] Start: 09-13-2021 End: 09-13-2021 [facility]arted [facility] Start: 09-13-2021 Registered [facility] [employer] Start: 09-06-2021 End: 09-06-2021 [facility]arted [facility] Start: 09-06-2021 Registered [facility] [employer] Start: 08-30-2021 End: 08-30-2021 [facility]arted [facility] [facility] Start: 08-30-2021 Registered Referred [facility] [employer] Start: 08-23-2021 End: 08-23-2021 Departed [facility] Start: 08-23-2021 Registered Referred [facility] [employer] Start: 08-18-2021 End: 08-18-2021 [facility] [employer] Start: 08-18-2021 Registered [facility] [employer] Start: 08-16-2021 End: 08-16-2021 [facility]arted [facility] [employer] [facility] Start: 08-16-2021 Registered [facility] [employer] Start: 08-09-2021 End: 08-09-2021 Departed [facility] [facility] Start: 08-02-2021 End: 08-02-2021 Departed Referred [facility] [employer] Start: 08-02-2021 Registered [facility] [employer] Start: 07-26-2021 End: 07-26-2021 [facility]ed [facility] [facility] Start: 07-26-2021 Registered [facility] [employer] Start: 07-19-2021 End: 07-19-2021 [facility]arted [facility] [facility] Start: 07-19-2021 Registered [facility] [employer] Start: 07-12-2021 End: 07-12-2021 [facility]ed [facility] Start: 07-05-2021 End: 07-05-2021 Departed [facility] Start: 07-05-2021 Registered [facility] [employer] Start: 06-28-2021 End: 06-28-2021 Departed [facility] Start: 06-28-2021 Registered Referred [facility] [employer] Start: 06-21-2021 End: 06-21-2021 Departed [facility] [facility] Start: 06-21-2021 Registered [facility] [employer] Start: 06-14-2021 Registered Referred [facility] [employer] Start: 06-07-2021 End: 06-07-2021 Departed [facility] [facility] Start: 06-07-2021 Registered Referred [facility] [employer] Start: 05-31-2021 End: 05-31-2021 Departed [facility] [employer] [facility] Start: 05-31-2021 [facility] Start: 05-24-2021 End: 05-24-2021 Departed [facility] Start: 05-17-2021 Registered Ref[facility] Start: 05-15-2021 End: 05-15-2021 Emergency department patient visit Timothy Burton DO Work Phone: [facility] Comment on above: PEG tube malfunction (HCC) (Primary Dx) Start: 05-14-2021 Registered Referred [facility] [employer] [facility] Start: 05-10-2021 Registered Referred [facility] [employer] [facility] Start: 05-03-2021 Registered Referred [facility] [employer] [facility] Start: 04-26-2021 Registered Referred [facility] [employer] [facility] Start: 04-19-2021 Registered Referred [facility] [employer] [facility] Start: 04-12-2021 Registered Referred [facility] [employer] Start: 04-07-2021 Registered Referred [facility] [employer] [facility] Start: 03-19-2021 End: 03-24-2021 Evaluation and management of inpatient Brady Desai DO Work Phone: [facility] [employer] Comment on above: Respiratory syncytia l virus (RSV) (Primary Dx); Hypoxia Start: 03-18-2021 End: 03-18-2021 Emergency department patient visit Boo Castro MD Work Phone: [facility] Comment on above: Respiratory syncytia l virus (RSV) (Primary Dx); Hypoxia Start: 10-30-2020 End: 10-30-2020 Emergency department patient visit Bethany Clemons MD Work Phone: [facility] Comment on above: Feeding tube dysfunc tion, initial encounter (Primary Dx) Start: 09-22-2020 End: 09-22-2020 Emergency department patient visit Elizabeth Moura MD Work Phone: [facility] Comment on above: PEG tube malfunction (HCC) (Primary Dx) Start: 06-26-2020 End: 06-26-2020 Emergency department patient visit Abelardo Rios Work Phone: [facility] Comment on above: PEG tube malfunction (HCC) (Primary Dx) Start: 05-22-2019 End: 05-22-2019 Patient encounter procedure Jarvis Kendall MD Work Phone: [facility] Work Phone: Start: 05-22-2019 End: 05-22-2019 Pt evaluation Jarvis Kendall MD Work Phone: [facility] Work Phone: Start: 05-16-2019 End: 05-16-2019 Emergency department patient visit Elizabeth Moura MD Work Phone: [facility] ED Comment on above: Contusion of right h ip, initial encounter (Primary Dx) Start: 08-15-2018 Evaluation and management of inpatient UNKNOWN PROVIDER [facility] Start: 07-08-2018 Evaluation and management of inpatient JORDAN GEUBE [facility] Start: 01-02-2003 End: 01-02-2003 Patient encounter procedure Beni Noonan Work Phone: [facility] Start: 01-02-2003 Results Only Beni Cappsr Work Phone: [facility] Procedures Date Procedure Procedure Detail [...] stick/tabl et reagent auto microscopy Renard Burgos OLS Start: 11-22-2023 Radiologic exam swal low function [...] cleared fda spec home use Brady G Franciscaheim DO Work Phone: Start: 03-21-2021 Assay of [...] EMDF, PT, BMP3M, PHOS3, MG3, CK3 #### [facility] [address], [place] #### [id number] #### [facility] [address] [place] [address] Start: 07-27-2018 Microscopic examinat ion of blood, culture Comment on above: Order Comment: Speci men Source Comment:Blood Performed By: #### H EMDF, PT, BMP3M, PHOS3, MG3, CK3 #### [facility] [address], [place] #### [id number] #### [facility] [address] [place] [address] Start: 07-19-2018 Microscopic examinat ion of blood, culture Comment on above: Order Comment: Speci men Source Comment:Blood Performed By: #### H EMDF, PT, BMP3M, PHOS3, MG3, CK3 #### [facility] [address], [place] #### [id number] #### [facility] [address] [place] [address] Start: 01-02-2003 CONVERTED SURGICAL PATHOLOGY Beni Shaista [...] for Adults (1 - 1-dose 75+ series) [facility] Start: 01-10-2027 DTaP/Tdap/Td vaccine (2 - Td or Tdap) DTaP/Tdap/Td vaccine (2 - Td or Tdap) [facility] Start: 01-10-2027 DTaP/Tdap/Td vaccine (2 - Td) DTaP/Tdap/Td vaccine (2 - Td) [facility] Work Phone: Start: 01-10-2027 DTaP/Tdap/Td Vaccine s (2 - Td or Tdap) DTaP/Tdap/Td Vaccines (2 - Td or Tdap) [facility] Start: 02-24-2025 Registered Referred Registered [facility] [employer] Start: 02-21-2025 Registered Referred Registered Refer [employer] Start: 02-17-2025 Registered Referred Registered [facility] Start: 02-10-2025 Registered Referred Registered Refer [employer] Start: 12-30-2024 Influenza vaccination Influenz a Vaccine (Season Ended) [facility] Start: 03-22-2024 Diabetes mellitus screening Diabetes Screening [facility] Start: 12-31-2023 COVID-19 Vaccine ( season) COVID-19 Vaccine ( season) [facility] Start: 12-31-2023 COVID-19 Vaccine ( season) COVID-19 Vaccine ( season) [facility] Start: 12-31-2023 COVID-19 Vaccine ( season) COVID-19 Vaccine ( season) [facility] Start: 12-31-2023 Influenza vaccination [facility] Start: 01-30-2023 Bacteria identified in Urine by Culture Urine Culture [facility] Start: 01-30-2023 [facility] Start: 12-30-2022 COVID-19 Vaccine ( season) COVID-19 Vaccine ( season) [facility] Start: 2022 Pneumococcal 0-64 ye ars Vaccine (2 of 2 - PPSV23) Pneumococcal 0-64 years Vaccine (2 of 2 - PPSV23) [facility] Start: 2022 Pneumococcal 0-64 ye ars Vaccine (2 of 2) Pneumococcal 0-64 years Vaccine (2 of 2) [facility] Work Phone: Start: 2022 Pneumococcal Vaccine : 65+ Years (2 of 2 - PCV) Pneumococcal Vaccine: 65+ Years (2 of 2 - PCV) [facility] Start: 12-30-2021 Influenza vaccination Influenza Vacc ine (#1) [facility] Start: 12-30-2020 Influenza vaccination [facility] Start: 12-31-2019 Influenza vaccination Flu vaccine (# 1) [facility] Work Phone: Start: 08-18-2019 A1C test (Diabetic o r Prediabetic) A1C test (Diabetic or Prediabetic) [facility] Work Phone: Start: 08-18-2019 HbA1c (Bld) [Mass fraction] A1C test (Diabetic or Prediabetic) [facility] Work Phone: Start: 08-18-2019 Hemoglobin A1c measurement A1C test (Diabetic or Prediabetic) [facility] Start: 05-22-2019 End: 05-22-2019 Appointment Appointment [facility] Work Phone: Start: 02-07-2019 Lipid panel Lipid screen [facility] Start: 02-07-2019 Lipid screen [facility] screen [facility] Work Phone: Start: 12-30-2018 Influenza vaccination Flu vaccine (# 1) [facility] Work Phone: Start: 01-10-2018 Pneumococcal Vaccine : 50+ Years (2 of 2 - PCV) Pneumococcal Vaccine: 50+ Years (2 of 2 - PCV) [facility] Start: 01-10-2018 Pneumococcal Vaccine : 65+ Years (2 - PCV) Pneumococcal Vaccine: 65+ Years (2 - PCV) [facility] Start: 2017 RSV Immunization age d 60 or older (1 - 1-dose 60+ series) RSV Immunization aged 60 or older (1 - 1-dose 60+ series) [facility] Start: 2007 Colon cancer screen colonoscopy Colon cancer screen colonoscopy [facility] Work Phone: Start: 2007 Screening for malign ant neoplasm of colon Colon cancer screen colonoscopy [facility] Work Phone: Start: 2007 Shingles Vaccine (1 of 2) Shingles Vaccine (1 of 2) [facility] Start: 2007 Zoster Vaccines (1 o f 2) Zoster Vaccines (1 of 2) [facility] Start: 2002 Screening for malign ant neoplasm of colon Colon cancer screen colonoscopy [facility] Start: 1976 Hepatitis A Vaccines (1 of 2 - Risk 2-dose series) Hepatitis A Vaccines (1 of 2 - Risk 2-dose series) [facility] Start: 1975 Hepatitis C screening Hepatitis C Sc reening [facility] Start: 1969 COVID-19 Vaccine (1) COVID-19 Vaccin e (1) [facility] Start: 1969 Depression Monitoring Depression Mon [facility] Start: 1969 Depression Screen Depression Screen [facility] Start: 1962 COVID-19 Vaccine (1) COVID-19 Vaccin e (1) [facility] Start: 1957 COVID-19 Vaccine (#1) COVID-19 Vacci ne (#1) [facility] Start: 1957 Annual wellness visit Medicare Initial Physical (IPPE) [facility] Start: 1957 Hepatitis B Vaccines (1 of 3 - 3-dose series) Hepatitis B Vaccines (1 of 3 - 3-dose series) [facility] Start: 1957 Lipid panel Lipid Panel [facility] Start: 1957 Screening for malign ant neoplasm of colon [facility] Basic metabolic 2000 panel - Serum or Plasma Basic Metabolic Panel Lab Routine Daily until discontinued starting 03/23/2021, 2 completed [employer] Work Phone: Comment on above: Daily until disconti nued starting 03/23/2021, 2 completed CBC W Auto Different ial panel - Blood CBC Auto Differential Lab Routine Daily until discontinued starting 03/23/2021, 2 completed [employer] Work Phone: Comment on above: Daily until disconti nued starting 03/23/2021, 2 completed End: 06-24-2024 CT Chest WO contrast [employer] [facility] Work Phone: Comment on above: Once for 1 Occurrenc es starting 06/24/2024 until 06/24/2024 Culture, Blood 2 Culture, Blood 2 Microbiology STAT 03/19/2021 6:26 PM EST [employer] Work Phone: End: 03-20-2021 Culture, Respiratory Culture, Respiratory Microbiology Routine One Time for 1 Occurrences starting 03/20/2021 until 03/20/2021 [employer] Work Phone: Comment on above: One Time for 1 Occur rences starting 03/20/2021 until 03/20/2021 EKG 12 Lead EKG 12 Lead ECG STAT 03/18/2021 3:20 PM EST [employer] Work Phone: Feeding Tube Feeding Tube Pro cedures Routine 10/30/2020 2:22 PM EDT [employer] Work Phone: End: 09-22-2020 FL WATER SOLUBLE ENEMA W OR WO KUB FL WATER SOLUBLE ENEMA W OR WO KUB Imaging STAT Once for 1 Occurrences starting 09/22/2020 until 09/22/2020 [employer] Work Phone: Comment on above: Once for 1 Occurrenc es starting 09/22/2020 until 09/22/2020 End: 03-23-2021 Glucose [Mass/volume] in Serum or Plasma POCT GLUCOSE Point of Care Testing Routine Now Then Every 6hr for 7 Occurrences starting 03/21/2021 until 03/23/2021 [employer] Work Phone: Comment on above: Now Then Every 6hr f or 7 Occurrences starting 03/21/2021 until 03/23/2021 High Frequency Chest Wall Oscillation (HFCWO) High Frequency Chest Wall Oscillation (HFCWO) Respiratory Care Routine (respiratory use only) until discontinued starting 03/22/2021 [employer] Phone: Comment on above: (respirato ry use only) until discontinued starting 03/22/2021 End: 03-20-2021 Legionella Antigen, Urine Legionella Antigen, Urine Microbiology Routine One Time for 1 Occurrences starting 03/20/2021 until 03/20/2021 [facility] Phone: Comment on above: One Time for 1 Occur rences starting 03/20/2021 until 03/20/2021 Microscopic examinat ion of blood, culture Culture, Blood Microbiology STAT 03/19/2021 6:26 PM EST [employer] Work Phone: End: 03-20-2021 Microscopic observation [Identifier] in Unspecified specimen by Gram stain Gram Stain Microbiology Routine Once for 1 Occurrences starting 03/20/2021 until 03/20/2021 [facility] Phone: Comment on above: Once for 1 Occurrenc es starting 03/20/2021 until 03/20/2021 Oxygen therapy [[facility] Data Set] Initiate Oxygen Therapy Protocol Respiratory Care Routine Daily until discontinued starting 03/20/2021 [employer] Phone: Comment on above: Daily until disconti nued starting 03/20/2021 Patient Education \\cps-sql1\\CPS_ PtEducati on\\CDC_FALL_PREVENTION. pdf, \\cps-sql1\\CPS_PtEducati on\\quitting_smoking_[id number].pdf [facility] Work Phone: RT Communication Order RT Commun ication Order Respiratory Care STAT Daily until discontinued starting 03/18/2021 [employer] Work Phone: Comment on above: Daily until disconti nued starting 03/18/2021 RT Communication Order RT Commun ication Order Respiratory Care Routine Daily until discontinued starting 03/20/2021 [employer] Work Phone: Comment on above: Daily until disconti nued starting 03/20/2021 End: 03-20-2021 STREP PNEUMONIAE ANTIGEN STREP PNEUMONIAE ANTIGEN Microbiology Routine One Time for 1 Occurrences starting 03/20/2021 until 03/20/2021 [facility] Work Phone: Comment on above: One Time for 1 Occur rences starting 03/20/2021 until 03/20/2021 End: 03-18-2021 Urinalysis Urinalysis Lab STAT One Time for 1 Occurrences starting 03/18/2021 until 03/18/2021 [facility] Work Phone: Comment on above: One Time for 1 Occur rences starting 03/18/2021 until 03/18/2021 End: 03-18-2021 Urine Drug Screen Urine Drug Screen Lab STAT One Time for 1 Occurrences starting 03/18/2021 until 03/18/2021 [facility] Work Phone: Comment on above: One Time for 1 Occur rences starting 03/18/2021 until 03/18/2021 End: 09-22-2020 XR ABDOMEN (KUB) (SINGLE AP VIEW) XR ABDOMEN (KUB) (SINGLE AP VIEW) Imaging Routine Once for 1 Occurrences starting 09/22/2020 until 09/22/2020 [facility] Work Phone: Comment on above: Once for 1 Occurrenc es starting 09/22/2020 until 09/22/2020 Immunizations Immunization Date Immunization Notes Care Provider [facility] 02-02-2021 influenza virus vacc ine, unspecified formulation Rashaad Smith [employer] Work Phone: [facility] 01-10-2017 pneumococcal polysaccharide vaccine, 23 valent Elizabeth Moura MD Work Phone: [facility] 01-10-2017 tetanus toxoid, redu delia diphtheria toxoid, and acellular pertussis vaccine, adsorbed Elizabeth Moura MD Work Phone: [facility] Work Phone: Payers Date Payer Category Payer Self-pay [id number] 2019 Medicaid [id number] 2019 Medicaid [id number] 2018 Private Health Insurance [id number] [facility] xxxxxxxxx 2018-Present [phone] [address] [place] [address] xxxxxxxxx [id number] 1957 Unknown [id number] 2.16.840.1.235427.3.579.2. 668 1957 Unknown [id number] 2.16.840.1.719120.3.579.2. 668 Private Health Insurance Unknown [id number] 2.16.840.1.461011.3.579.2. 462 Unknown [id number] 2.16.840.1.392202.3.579.2. 462 Unknown [id number] 2.16.840.1.336122.3.579.2. 462 Unknown [id number] 2.16.840.1.727805.3.579.2. 462 Unknown [id number] 2.16.840.1.426706.3.579.2. 462 Unknown [id number] 2.16.840.1.948507.3.579.2. 462 Unknown [id number] 2.16.840.1.737606.3.579.2. 462 Unknown [id number] 2.16.840.1.738542.3.579.2. 462 Unknown [id number] 2.16.840.1.613873.3.579.2. 462 Unknown [id number] 2.16.840.1.224159.3.579.2. 462 Unknown [id number] 2.16.840.1.881868.3.579.2. 462 Unknown [id number] 2.16.840.1.281672.3.579.2. 462 Unknown [id number] 2.16.840.1.022342.3.579.2. 462 Unknown [id number] 2.16.840.1.175047.3.579.2. 462 Unknown [id number] 2.16.840.1.944449.3.579.2. 462 Unknown [id number] 2.16.840.1.961974.3.579.2. 462 Unknown [id number] 2.16.840.1.203108.3.579.2. 462 Unknown [id number] 2.16840.1.321623.3.579.2. 462 Unknown [id number] 2.16.840.1.233165.3.579.2. 462 Unknown [id number] 2.16.840.1.929991.3.579.2. 462 Unknown [id number] 2.16.840.1.391287.3.579.2. 462 Unknown [id number] 2.16.840.1.343442.3.579.2. 462 Unknown [id number] 2.16.840.1.089821.3.579.2. 462 Unknown [id number] 2.16.840.1.894667.3.579.2. 462 Unknown [id number] 2.16.840.1.669913.3.579.2. 462 Unknown [id number] 2.16.840.1.858908.3.579.2. 462 Unknown [id number] 2.16.840.1.653304.3.579.2. 462 Unknown [id number] 2.16.840.1.528042.3.579.2. 462 Unknown [id number] 2.16.840.1.490087.3.579.2. 462 Unknown [id number] 2.16.840.1.208497.3.579.2. 462 Unknown [id number] 2.16.840.1.393631.3.579.2. 462 Unknown [id number] 2.16840.1.945994.3.579.2. 462 Unknown [id number] 2.16840.1.181071.3.579.2. 462 Unknown [id number] 2.840.1.547940.3.579.2. 462 Unknown [id number] 2.840.1.906036.3.579.2. 462 Unknown [id number] 2.840.1.246984.3.579.2. 462 Unknown [id number] 2.840.1.992857.3.579.2. 462 Unknown [id number] 2.840.1.070551.3.579.2. 462 Unknown [id number] 2.16840.1.103768.3.579.2. 462 Unknown [id number] 2.16.840.1.755413.3.579.2. 462 Unknown [id number] 2.840.1.180695.3.579.2. 462 Unknown [id number] 2.16840.1.899054.3.579.2. 462 Unknown [id number] 2.16840.1.594182.3.579.2. 462 Unknown [id number] 2.16840.1.061537.3.579.2. 462 Unknown [id number] 2.16.840.1.867694.3.579.2. 462 Unknown [id number] 2.16840.1.325195.3.579.2. 462 Unknown [id number] 2.16.840.1.642307.3.579.2. 462 Unknown [id number] 2.16.840.1.799252.3.579.2. 462 Unknown [id number] 2.16.840.1.283868.3.579.2. 462 Unknown [id number] 2.16.840.1.206272.3.579.2. 462 Unknown [id number] 2.16.840.1.702856.3.579.2. 462 Unknown [id number] 2.16.840.1.655819.3.579.2. 462 Unknown [id number] 2.16.840.1.571481.3.579.2. 462 Unknown [id number] 2.16.840.1.192977.3.579.2. 462 Unknown [id number] 2.16.840.1.498266.3.579.2. 462 Unknown [id number] 2.16.840.1.810299.3.579.2. 462 Unknown [id number] 2.16.840.1.648847.3.579.2. 462 Unknown [id number] 2.16.840.1.476953.3.579.2. 462 Unknown [id number] 2.16.840.1.525414.3.579.2. 462 Social History Date Type Detail Facility Tobacco smoking status MNIS Unknown if ever smoked [facility] Work Phone: Start: 1955 Sex Assigned At Not on file [employer] Work Phone: Start: 11-05-2018 End: 06-26-2020 Tobacco smoking status NHIS Former smoker [employer] Work Phone: End: 02-06-2016 History of tobacco use Current smoker [employer] Work Phone: End: 02-06-2016 History of tobacco use Cigar Smoker [employer] Work Phone: Start: 02-05-2018 End: 06-26-2020 Tobacco use and exposure Never used [employer] Work Phone: Start: 06-26-2020 End: 05-20-2022 Alcohol intake Current drinker of alcohol (finding) [employer] Work Phone: Start: 07-08-2018 Alcohol Comment 2 times per wo rk, occasionally liquor [employer] Work Phone: Start: 05-10-2022 End: 05-20-2022 Exposure to SARS-CoV-2 (event) Not sure [employer] Work Phone: Start: 09-22-2020 End: 05-20-2022 Alcohol intake [facility] Start: 1955 Sex Assigned At Male [facility] End: 02-06-2016 History of tobacco use Cigarette Smoker [facility] Start: 05-20-2022 End: 10-02-2023 Tobacco use panel [facility] How often to you have a drink containing alcohol? Never [facility] How many standard drinks containing alcohol do you have on a typical day? Patient does not drink [facility] Start: 11-29-2021 End: 08-16-2024 Sex Male (finding) [facility] Tobacco smoking status NHIS Unknown if ever smoked [facility] Work Phone: NEGATED: Highlighted rowStart: 05-22-2019 End: 05-22-2019 Alcohol use Alcohol use [facility] Work Phone: NEGATED: Highlighted rowStart: 05-22-2019 End: 05-22-2019 Assertion Current some day smoker [facility] Work Phone: NEGATED: Highlighted rowStart: 05-22-2019 End: 05-22-2019 Details of drug misuse behavior Details of drug misuse behavior [facility] Work Phone: NEGATED: Highlighted rowStart: 05-22-2019 End: 05-22-2019 Tobacco use and exposure Tobacco use and exposure [facility] Work Phone: Clinical Notes 03-18-2021 to 05-03-2024 Telephone Encounter - Shayylenore Karan Wallace - 05/03/2024 5:29 PM ESTTelephone Encounter - Anniayuly Russo Rodrigo - 05/03/2024 5:29 PM ZACHARY Baptiste - 11/22/2023 11:30 AM EDTDislizzie Pfeiffer - CHRIS Note Date & Type Note Facility 05-03-2024 Telephone encounter Note Gissel is calling to let Dr. Burgos know that the medication he prescribed he not certified, she is going to fax the information to the office. [phone] [facility] 05-03-2024 Miscellaneous Notes Gissel is calling to let Dr. Burgos know that the medication he prescribed he not certified, she is going to fax the information to the office. [phone] documented in this encounter [facility] 11-22-2023 History of Presen t illness Narrative Images from the original note were not included. Speech-Language Pathology SPEECH LANGUAGE PATHOLOGY [facility] Modified Barium Swallow Study [...] despite effort. Pt may benefit from skilled INTERPRETER TRANSLATOR services to address: Anterior hyoid movement (difficult d/t cervical fusion C2-C6; pressure generation, cough strengthening (EMST). Frequency: Per treating INTERPRETER TRANSLATOR Barriers: large osteophytes, bridging with anterior projection [...] Prior MBSS?: No, unable to locate in [facility] Current Diet: Puree diet with ?liquid (no information from [place]) Textures tested: - thin liquid, (cup edge) - mildly thick liquid, (cup edge) - puree, (teaspoon) Patient position: lateral Past Medical History: Past Medical History: Diagnosis Date TREVER (acute kidney injury) ([facility]) ([facility]) Alcohol abuse 07/08/2018 Anxiety C1 spinal cord injury ([facility]) ([facility]) Depression Fall 06/2018 Schizophrenia ([facility]) Past Surgical History: Past Surgical History: Procedure Laterality Date CERVICAL FUSION 07/09/2014 C2-6 cervical fusion GASTROSTOMY TUBE PLACEMENT 07/13/2018 TRACHEOSTOMY 07/13/2018 Admission Diagnosis: Patient Active Problem List Diagnosis Date Noted Respiratory syncytial virus (RSV) 03/22/2021 Hypoxia 03/19/2021 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[facility]/HCC) ([facility]) 08/16/2018 Chronic latent schizophrenia ([facility]) 08/15/2018 Prolonged Q-T interval on ECG 08/15/2018 Abdominal wall abscess 08/15/2018 Central cord syndrome ([facility]/HCC) ([facility]) 08/15/2018 Respiratory failure after trauma ([facility]) 08/15/2018 Pressure ulcer of sacral region, stage 2 ([facility]) 08/09/2018 Urinary retention 07/28/2018 Acute respiratory failure with hypoxia ([facility]) 07/26/2018 Mild bibasilar atelectasis 07/26/2018 Hospital-acquired pneumonia 07/26/2018 Bilateral pleural effusion 07/26/2018 Ileus (CMS/HCC) ([facility]) 07/23/2018 TREVER (acute kidney injury) ([facility]) 07/23/2018 Hypokalemia 07/21/2018 Vertebral artery occlusion, bilateral 07/11/2018 Vitamin D insufficiency 07/10/2018 Alcohol abuse 07/08/2018 Closed wedge compression fracture of first thoracic vertebra ([facility]) 07/08/2018 Traumatic nondisp spondylolisthesis of C3 vertebra with closed fx, initial encounter ([facility]) 07/08/2018 Closed fracture dislocation of cervical spine ([facility]) 07/08/2018 Pain: Pt denies any current pain. Reason for current admission: Pt with h/o of PEG and trach from 2019. Pt is currently decannulated. H/o [place] cervical fusion C2-C6. Noted very large connective [...] able to eat by mouth. Therapy Time INTERPRETER TRANSLATOR Individual Minutes Time In: 1150 Time Out: 1215 Minutes: 25 ZACHARY Sun documented in this encounter [facility] 10-02-2023 Emergency department Note [facility] at bedside at this time Mami Lantigua RN 10/02/23 1427 [facility] 10-02-2023 Emergency department Note [facility] at bedside at this time Mami Lantigua RN 10/02/23 1427 This RN gave report to Marnie at [facility] at this time Mami Lantigua RN 10/02/23 1358 This RN went to evaluate patient, was on 2L o2 and does not wear at baseline, plan is dc, this RN turned o2 off to trial patient, spo2 monitor on Mami Lantigua RN 10/02/[address] via dory Alfaro RN 10/02/23 1043 Emergency Department Encounter [facility] ED Patient: Kathya Hooper : 1955 Date [...] words are mis-transcribed.) Fei Farooq MD Acute [facility] Fei Farooq MD 10/02/23 1723 Pt was brought in via [facility] from [facility] for Left sided facial droop. Per EMS nurse is new and does not know patient very well but he is A&O x 2 at baseline. Per EMS the nurse states it was 20 mins ago. 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 EMS states [...] schizophrenia. BS 131. documented in this encounter [facility] 10-02-2023 Emergency department Note This RN gave report to Marnie at [facility] at this time Mami Lantigua RN 10/02/23 9554 [facility] 10-02-2023 Emergency department Note This RN went to evaluate patient, was on 2L o2 and does not wear at baseline, plan is dc, this RN turned o2 off to trial patient, spo2 monitor on Mami Lantigua RN 10/02/23 1325 [facility] 10-02-2023 Emergency department Note Pt to ct via cart Eloisa Alfaro RN 10/02/23 1043 [facility] 10-02-2023 Emergency department Triage note Pt was brought in via [facility] from [facility] for Left sided facial droop. Per EMS nurse is new and does not know patient very well but he is A&O x 2 at baseline. Per EMS the nurse states it was 20 mins ago. 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 EMS states [...] facility. Hx of schizophrenia. BS 131. T [facility] 10-02-2023 Physician Emergency department Note Emergency Department Encounter [facility] ED Patient: Kathya Hooper : 1955 Date [...] [employer] Fei Farooq MD 10/02/23 1129 [employer] Work Phone: 05-20-2022 Emergency department Note Report called to intermediate. Copy of Xray report sent with discharge packet Gary Ghosh RN 05/20/222007 [employer] 05-20-2022 Emergency department Note Report called to intermediate. Copy of Xray report sent with discharge packet Gary Ghosh RN 05/20/222007 Emergency Department Encounter [facility] ED Patient: Kathya Hooper : 1955 Date of Evaluation: 05/20/2022 ED Supervising Physician: Abelardo Rios DO I independently examined and evaluated Kathya Hooper. This will serve as my Supervisory note as the machine operator packaging of record and shared attestation. I did [...] for clarification.) Abelardo Rios DO Acute Care [facility] Abelardo Rios DO 05/20/222014 documented in this encounter [facility] 05-20-2022 Miscellaneous Notes Associated Order(s): Feeding Tube Replacement Procedure Feeding Tube Replacement Performed by: Dejah Hazel DO Authorized by: Abelardo Rios DO Consent: Consent obtained: Verbal Consent given by: Patient [place] protocol: Patient identity confirmed: Verbally with patient [...] DO Resident 05/20/221931 documented in this encounter [employer] 05-20-2022 Note Associated Order(s): Feeding Tube Replacement Procedure Feeding Tube Replacement Performed by: Dejah Hazel DO Authorized by: Abelardo Rios DO Consent: Consent obtained: Verbal Consent given by: Patient [place] protocol: Patient identity confirmed: Verbally with patient [...] no immediate complications DO Brandon Otoole 05/20/221931 [employer] Phone: 05-20-2022 Note Associated Order(s): Feeding Tube Replacement Procedure Feeding Tube Replacement Performed by: Dejah Hazel DO Authorized by: Abelardo Rios DO Consent: Consent obtained: Verbal Consent given by: Patient [place] protocol: Patient identity confirmed: Verbally with patient [...] immediate complications Dejah Hazel DO Resident 05/20/221931 [employer] Phone: 05-20-2022 Physician Emergency department Note Emergency Department Encounter [facility] ED Patient: Kathya Hooper : 1955 Date of Evaluation: 05/20/2022 ED Supervising Physician: Abelardo Rios DO I independently examined and evaluated Kathya Hooper. This will serve as my Supervisory note as the machine operator packaging of record and shared attestation. I did [...] [employer] Abelardo Rios DO 05/20/222014 [employer] Work Phone: 03-24-2021 Note Hospitalist Discharg e [...] Pneumonia. Treated with antibiotics. He resides in [facility]. He was stablized and discharged Diet NPO [...] Result Date: 03/18/2021 [id number] ACCESSION EXAM DATE/TIME PROCEDURE ORDERING PROVIDER [id number] 03/18/2021 16:26 EST CTA Head/Neck w/ + w/o 068365 alyson ARCHIBALD CPT code 96708 22526 Q9967 Reason For Exam (CTA Head/Neck w/ [...] airway at the (more content not included)... [facility] 03-24-2021 Hospital course Narrative Hospitalist Discharge Summary [...] Pneumonia. Treated with antibiotics. He resides in [facility]. He was stablized and discharged Diet NPO [...] Tomography ACCESSION EXAM DATE/TIME PROCEDURE ORDERING PROVIDER [id number] 03/18/2021 16:26 EST CTA Head/Neck w/ + w/o 853985 alyson ARCHIBALD CPT code 04220 72888 Q9967 Reason For Exam (CTA Head/Neck w/ [...] Tomography ACCESSION EXAM DATE/TIME PROCEDURE ORDERING PROVIDER [id number] 03/18/2021 16:27 EST CTA Chest w/ + w/o 054745 -CASTRO, Contrast BOO CPT code 67470 Q9967 Reason For Exam (CTA Chest w/ [...] Radiology ACCESSION EXAM DATE/TIME PROCEDURE ORDERING PROVIDER [id number] 03/19/2021 17:10 EST CR Chest Portable 149142 -BRADY DESAI CPT code 20358 Reason For Exam (CR Chest Portable) hypoxia [...] Result Date: 03/18/2021 Patient Name: KATHYA HOOPER [facility]#: [id number] Diagnostic Radiology ACCESSION EXAM DATE/TIME PROCEDURE ORDERING PROVIDER [id number] 03/18/2021 15:30 EST CR Chest Portable 802424 -BOO CASTRO CPT code 89321 Reason For Exam (CR Chest Portable) sob, [...] on file. Discharging Nurse: Discharging Hospital Unit/Room#: 223/5888 Discharging Unit Phone Number: Emergency Contact: Extended Emergency Contact Information Primary Emergency Contact: Jason [facility] Relation: Parent Past Surgical History: Past Surgical History: Procedure Laterality Date CERVICAL FUSION 07/09/2014 C2-6 cervical fusion GASTROSTOMY TUBE PLACEMENT 07/13/2018 TRACHEOSTOMY 07/13/2018 Immunization History: Immunization History Administered Date(s) Administered Pneumococcal Polysaccharide ([id number]) 01/10/2017 Tdap (Boostrix, Adacel) 01/10/2017 Active Problems: Patient Active Problem List Diagnosis Code Closed fracture dislocation of cervical spine ([facility]) S12.9XXA Traumatic nondisp spondylolisthesis of C3 vertebra with closed fx, initial encounter ([facility]) S12.231A Closed wedge compression fracture of first thoracic vertebra ([facility]) S22.010A Central cord syndrome ([facility]) S14.129A Chronic latent schizophrenia ([facility]) F21 Alcohol abuse F10.10 Respiratory failure after trauma ([facility]) J96.90 Vitamin D insufficiency E55.9 Vertebral artery occlusion, 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 Hypokalemia E87.6 Ileus ([facility]) K56.7 TREVER (acute kidney injury) ([facility]) N17.9 Acute respiratory failure with hypoxia ([facility]) J96.01 Hospital-acquired pneumonia J18.9, Y95 Bilateral pleural effusion J90 Mild bibasilar atelectasis J98.11 Urinary retention R33.9 Prolonged Q-T interval on ECG R94.31 Pressure ulcer of sacral region, stage 2 ([facility]) L89.152 Abdominal wall abscess L02.211 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[facility]) K65.4 Hypoxia R09.02 Respiratory syncytial [...] MENTAL STATUS:} IV Access: { CHRIS IV ACCESS:003352867} Nursing Mobility/ADLs: Walking {CHP DME ADLs:669661967} Transfer {P DME ADLs:864492461} Bathing {P DME ADLs:224493641} Dressing {CHP DME ADLs:060283652} Toileting {P DME ADLs:862956697} Feeding {P DME ADLs:941558784} Quill Buncher And Sorter {P DME ADLs:932136535} Med Delivery { CHRIS MED Delivery:151811708} Wound Care Documentation and Therapy: Negative Pressure Wound Therapy Abdomen Left (Active) Number of days: 947 Wound Sacrum Mid (Active) Number of days: Elimination: Continence: Bowel: {YES / NO:} Bladder: {YES / NO:} Urinary Catheter: {Urinary Catheter:695333081} Colostomy/Ileostomy/Ileal Conduit: {YES / NO:} Date of Last BM: No intake or output data in the 24 hours ending 03/24/21 1013 I/O last 3 completed shifts: In: 660 [NG/GT:660] Out: - Safety Concerns: { CHRIS Safety Concerns:993063305} Impairments/Disabilities: { CHRIS Impairments/Disabilities:01253876 3} Nutrition Therapy: Current Nutrition Therapy: { CHRIS Diet List:578256639} Routes of Feeding: {[facility] DME Other Feedings:195569081} Liquids: {[facility] liquid thickness:50400} Daily Fluid Restriction: {[facility] D[facility] Yes amt example:079066787} Last Modified Barium Swallow with Video (Video Swallowing Test): {Done Not Done Date:789663711} Treatments at the Time of Hospital Discharge: Respiratory Treatments: Oxygen Therapy: {Therapy; copd oxygen:80380} Ventilator: {[facility] Vent List:362513256} Rehab Therapies: {THERAPEUTIC INTERVENTION:3760179790} Weight Bearing Status/Restrictions: {[facility] Weight Bearin} Other Medical Equipment (for information only, NOT a DME order): {EQUIPMENT:780306492} Other Treatments: Patient's personal belongings (please select all that are sent with patient): {[facility] DME Belongings:005270534} RN SIGNATURE: {Esignature:621004619} CASE MANAGEMENT/SOCIAL WORK SECTION Inpatient Status Date: Readmission Risk Assessment Score: Readmission Risk Risk of Unplanned Readmission: 25 Discharging to Facility/ Agency Name: [facility] Address: [address] [facility] [address] Dialysis Facility (if applicable) Name: Address: Dialysis Schedule: Phone: Fax: Unstacker/Braid Cutter signature: PHYSICIAN SECTION Prognosis: Good Condition at Discharge: Stable Rehab Potential (if transferring to Rehab): Good Recommended Labs or Other Treatments After Discharge: Physician Certification: I certify the above information and transfer of Kathya Hooper is necessary for the continuing treatment of the diagnosis listed and that he requires Custodial Facility for greater 30 days. Update Admission [...] loss Fluid Accumulation: No significant fluid accumulation [employer] Strength: Not Performed Estimated Daily Nutrient Needs: Energy (kcal): 3501-5006 (25-30 kcal/kg IBW); Weight Used for Energy Requirements: [place] (86.2 kg) Protein (g): 86-103 (1.0-1.2 g protein/kg IBW); Weight Used for Protein Requirements: [place] (86.2 kg) Fluid (ml/day): per MD. At [...] on 03/02/21, October weight= 185.5# on 01/29/21) [place] Body Weight: 190 lbs; % [place] Body Weight 97.8 % BMI: 24 Adjusted [...] Skin, Weight Discharge Planning: Enteral Nutrition Contact: *[phone] Images from the original note were not included. Hospitalist Progress Note 03/23/2021 9:27 AM Subjective: Admit Date: 03/19/2021 PCP: No primary care provider on file. Room#: 465/465 Patient seen and examined. Laying in bed. [...] from the original note were not included. [facility] [place] Pul[facility] Critical Care and Sleep Medicine [address] [place] [id number] Patient - Kathya Hooper, Age - 66 [...] bed. Pt thought there was a endoscopy technician in the corner of his room. When pt got his meds he calmed down. Pt now watching tv. Call light within reach. Bed alarm on. Images from the original note were not included. [facility] [place], Pulmonary Critical Care and Sleep Medicine [address] [place] [phone] Patient - Kathya Hooper, Age - 66 y.o. - 1955 Room Number - [facility]/6852 Consulting - Rafa Michel MD Primary Care Physician - No primary care provider on file. [id number] Date of Admission - 03/19/2021 3:52 PM [...] Discharge planning: TBD Case discussed with Dr Sihpman. Questions and concerns addressed. Associated attestation - [...] 4th dose. Pulmonary F/U Note: Patient - aKthya Hooper, Age - 66 y.o. - 1955 Room Number - [id number] [facility] - [id number] Date of Admission - 03/19/2021 3:52 PM [...] Out: - Date 03/21/21 0000 - 03/21/21 235 Shift [id number] [phone] 4654-2331 24 Hour Total INTAKE NG/GT(mL/kg) 542(6.4) 542(6.4) [...] included. Hospitalist Progress Note 03/21/2021 9:41 AM [phone]: Please page me for patient care issues. [phone]: Please page [facility] night Hospitalist for any issues. Subjective: Admit Date: 03/19/2021 PCP: No primary care provider on file. Room#: 465/4657 Interval History: Lethargic, hard to arouse this [...] Trach PEG 07/13/2018. Presented from SNF to [facility] ED with worsening SOB. Evaluated in ED [...] loss Fluid Accumulation: No significant fluid accumulation Wool [place]yer Strength: Not Performed Estimated Daily Nutrient Needs: Energy (kcal): 3813-7736 (25-30 kcal/kg IBW); Weight Used for Energy Requirements: [place] (86.2 kg) Protein (g): 86-103 (1.0-1.2 g protein/kg IBW); Weight Used for Protein Requirements: [place] (86.2 kg) Fluid (ml/day): per MD. At facility receivin mL free water daily from EN and flushes; Method Used for Fluid Requirements: Other (Comment) Nutrition Related Findings: Massimo score= 15. No skin breakdown or edema noted. S/p Trach/PEG, per INTERPRETER TRANSLATOR note, does not take any food, drink [...] on 03/02/21, October weight= 185.5# on 01/29/21) [place] Body Weight: 190 lbs; % [place] Body Weight 97.8 % BMI: 23.9 BMI [...] Nutrition Contact: 2430 Speech Language Pathology Facility/Department: [facility] TELEMETRY CLINICAL BEDSIDE SWALLOW EVALUATION NAME: [...] known to "slam his head" against "things". Klayani states that she is the only family [phone] Images from the original note were not included. Hospitalist Progress Note 03/20/2021 9:58 AM [phone]: Please page me for patient care issues. [phone]: Please page [facility] night Hospitalist for any issues. [...] Narrative NIF -20 documented in this encounter [facility] Work Phone: 03-18-2021 Hospital Discharg Boo Stringer MD - 03/18/2021 Mr. Hooper was seen at the [facility] emergency department for low oxygen levels. [...] Care Everywhere.Viral Infections (Thai)documented in this encounter [facility] Work Phone: Evaluation note Diagnosis PEG tube malfunction (HCC)- Primary Mechanical complication of gastrostomy documented in this encounter [facility] Work Phone: Evaluation note* Diagnosis Feeding tube dysfunction, initial encounter- Primary documented in this encounter [facility] Work Phone: Evaluation note* Diagnosis Respiratory syncytial virus (RSV)- Primary Hypoxia Hypoxemia documented in this encounter [facility] Work Phone: Evaluation note* Diagnosis Respiratory syncytial virus (RSV)- Primary Hypoxia Hypoxemia documented in this encounter [facility] Work Phone: Evaluation note* Diagnosis PEG tube malfunction (HCC)- Primary Mechanical complication of gastrostomy documented in this encounter [facility] [facility] Work Phone: Evaluation note* Diagnosis Contusion of right hip, initial encounter- Primary documented in this encounter [facility] Work Phone: Evaluation noteNo assessment information available [facility] Work Phone: Evaluation note* Diagnosis Dyspnea, unspecified type- Primary [facility] Diagnosis Dysphagia, oropharyngeal phase Feeding difficulties Feeding difficulties and mismanagement [facility] Diagnosis Dysphagia, oropharyngeal phase- Primary Feeding difficulties Feeding difficulties and mismanagement Dysphagia, oropharyngeal phase Feeding difficulties Feeding difficulties and mismanagement [facility] Diagnosis Dislodged gastrostomy tube- Primary [facility]* Diagnosis Chronic cough Cough [facility]* Diagnosis Chronic cough- Primary Cough Chronic cough Cough [facility] Attachments The following attachments cannot be sent through Care Everywhere. * PEG (Percutaneous Endoscopic Gastrostomy): Post-op (Thai) documented in this [facility] Work Phone: Hospital Discharge instructions* Attachments The following attachments cannot be sent through Care Everywhere. * Feeding Tube: General Info (Thai) documented in this [facility]* Instructions* Mary Cochran PA-C - 05/15/2021 Please return to the ED if you have any new or worsening symptoms. documented in this [facility] Work Phone: Hospital Discharge instructions* Attachments The following attachments cannot be sent through Care Everywhere. * Hip Pain (Thai) * Contusion (Thai) documented in this [facility] Work Phone: Hospital Discharge instructions* Attachments The following attachments cannot be sent through Care Everywhere. * Shortness of Breath (Dyspnea) Discharge Instructions (Thai) [facility] Attachments The following attachments cannot be sent through Care Everywhere. * How to Care for Your Gastrostomy Tube (Thai) [facility]No reason for referral [facility] Work Phone: Reason for visit Narrative* Imaging (Routine) - Closed Specialty Diagnoses / Procedures Referred By Contlang t Referred To Contact Radiology Diagnoses Chronic cough Procedures CT chest wo IV contrast Rashaad Smith APRN - [employer] [address] [address] Phone: tel: fax: Referral ID Status Reason Start Date Expiration Date Visits Re quested Visits Authorized [id number] Closed 06/12/2024 06/12/2025 1 1 [facility] Summary Purpose Family History No Family History Records FoundNo Family History Records FoundThere may be information available, but it has not been provided by the sender.No Family History Records FoundNo Family History Records FoundNo Family History Records FoundNo Family History Records Found Advance Directives No Advanced Directives Records FoundDocuments on File Type Date Recorded Patient Installations Inspector Expl anation ACP-Advance Directive ACP-Advance Directive 08/07/2018 1:53 PM ACP-Power of Electrical Tests Supervisor Latest Code Status on File Code Status Date Activated Date Inactivated Comments Full Code 08/15/2018 8:27 PM 08/22/2018 4:31 PM Full Code 08/15/2018 8:12 PM 08/15/2018 8:27 PM Full Code 07/08/2018 8:28 PM 08/01/2018 2:39 PM Documents on File Type Date Recorded Patient Installations Inspector Expl anation ACP-Advance Directive ACP-Power of Electrical Tests Supervisor ACP-Advance Directive 08/07/2018 1:53 PM Latest Code Status on File Code Status Date Activated Date Inactivated Comments Full Code 03/20/2021 12:17 AM Full Code 08/15/2018 8:27 PM 08/22/2018 4:31 PM Documents on File Type Date Recorded Patient Installations Inspector Expl anation ACP-Advance Directive ACP-Power of Electrical Tests Supervisor ACP-Advance Directive 03/26/2021 9:48 AM ACP-Advance Directive 08/07/2018 1:53 PM Latest Code Status on File Code Status Date Activated Date Inactivated Comments Full Code 03/20/2021 12:17 AM 03/24/2021 3:23 PM Documents on File Type Date Recorded Patient Installations Inspector Expl anation Advance Directives and Livin g Will Advance Directives and Livin g Will 08/07/2018 1:53 PM Power of Electrical Tests Supervisor Documents on File Type Date Recorded Patient Installations Inspector Expl anation Advance Directives and Livin g Will 05/23/2022 10:48 AM Advance Directives and Livin g Will 03/19/2021 Documents on File Type Date Recorded Patient Installations Inspector Expl anation Advance Directives and Living Will 03/19/2021 Documents on File Type Date Recorded Patient Installations Inspector Expl anation Advance Directives and Livin g [...] 2024 4:0 0am Chief Complaint Admit Date ALF LAB WORK August 05, 2024 5: [...] m LABWORK October 07, 2024 5:00a m ALF LAB WORK October 14, 2024 4: 00am ALF LAB WORK October 21, 2024 4: 00am LABWORK October 28, 2024 5:00 am ALF LAB WORK November 04, 2024 4:0 0am ALF LAB WORK November 11, 2024 5: 00am Chief Complaint Admit Date LABWORK October 28, 2024 5:00 am ALF LAB WORK November 04, 2024 4:0 0am ALF LAB WORK November 11, 2024 5: 00am ALF LAB WORK November 18, 2024 5: 00am LABWORK November 25, 2024 5:00 am ALF LAB WORK December 02, 2024 5 :00am ALF LAB WORK December 09, 2024 4:00am ALF LAB WORK December 16, 2024 4:00am LABOWRK December 23, 2024 5: 00am ALF LAB WORK December 31 5:00am ALF LAB WORK January 06 4:00am ALF LAB WORK January 10 5:00am LABWORK January 13, 2025 5:00am ALF LAB WORK January 20 4:00am ALF LAB WORK January 27 4:00am ALF LAB WORK February 03, 2025 5:00am ALF LAB WORK February 10, 2025 4:00am Additional Source Comments (unrecognized sect ion and content) No Status Records FoundNo Status Records FoundNo Status Records FoundNo Status Records FoundNo Status Records FoundNo Status Records Found INFORMATION SOURCE (unrecogn ized section and content) DATE CREATED AUTHOR 09/04/2018 [facility] DATE CREATED AUTHOR AUTHOR'S ORGANIZ ATION 10/06/2018 [facility] DATE CREATED AUTHOR AUTHOR'S ORGANIZ ATION 03/26/2021 [facility] DATE CREATED AUTHOR AUTHOR'S ORGANIZ ATION 05/21/2021 [facility] DATE CREATED AUTHOR AUTHOR'S ORGANIZ ATION 06/28/2024 [facility] DATE CREATED AUTHOR AUTHOR'S ORGANIZ ATION 03/12/2025 [facility] Source Comments (unrecognize d section and content) In the event this informatio n is protected by the Federal Confidentiality of Alcohol and Drug Abuse Patient Records regulations: The Federal rules restrict any use of the information to criminally investigate or prosecute any alcohol or drug abuse patient.[facility] Reason for Visit (unrecogniz ed [...] Solorio, KUSHAL) 0914 (Given - Provider: Jovana Armstrong [...] 1200 0953 (Given - Provider: Amelie Taylor [facility])1356 (Given - Provider: Amelie Taylor ANGLE DOZER OPERATOR)1648 (Given - Provider: Amelie Taylor ANGLE DOZER OPERATOR)2212 (Given - Provider: Claire Lagos [facility]) 0841 (Given - Provider: Ana Cabrera [facility])1213 (Given - Provider: Ana Cabrera ANGLE DOZER OPERATOR)1622 (Given - Provider: Ana Cabrera ANGLE DOZER OPERATOR)2037 (Given - Provider: Perla Loyola [facility]) 1020 (Given - Provider: Gabriel Soares [facility])1200 (Due)1600 (Due)2000 (Due) lansoprazole (PREVACID SOLUTAB) disintegrating tablet 30 mg 30 mg, PEG Tube, DAILY BEFORE BREAKFAST, First dose on 03/21/21 at 0700, Do not crush or break. 0754 (Given - Provider: Tra Pearl RN) 0639 (Given - Provider: Nancy Solorio, KUSHAL) 0641 (Given - Provider: Nancy Solorio, KUSHAL) [...] at 2100 2209 (Given - Provider: Nancy Soolrio RN) 215 (Given - Provider: Nancy Solorio RN) 2100 (Due) sodium chloride (Inhalant) 3 % nebulizer solution 4 mL 4 mL, Nebulization, 2 TIMES DAILY, First dose on Mon03/19/21 at 2323 1003 (Given - Provider: Amelie Taylor ANGLE DOZER OPERATOR)2215 (Given - Provider: Claire Lagos ANGLE DOZER OPERATOR) 0841 (Given - Provider: Ana Cabrera [facility])205 (Given - Provider: Perla Loyola ANGLE DOZER OPERATOR) 1200 (Due - Provider: Gabriel Soares ANGLE DOZER OPERATOR)2100 (Due) sodium chloride flush 0.9 % injection [...] RN) 1055 (Given - Provider: Jovana Armstrong RN)215 (Given - Provider: Nancy Solorio RN) 0918 [...] KUSHAL) 1055 (Given - Provider: Jovana Armstrong, RN) [...] Eloisa Alfaro RN)1217 (Stopped - Provider: Mami Lantigua, KUSHAL) sodium chloride 0.9% (NS) flush 5-40 mL [...] Eloisa Alfaro RN)1419 (Stopped - Provider: Mami Lantigua, KUSHAL) PRN Medication Order 09/30/2023 10/01/2023 10/02/2023 sodium [...] Dates Renard Amezquitahola GARLAND Attending Provider Active Team Status: Inactive Member Role Status Dates Renard Hensleyrustam GARLAND Attending Provider, Referring Provi gelacio Active [...] Status Dates Renard Burgos Attending Provider Active Valve Repairer Reclamation Relationship Specialty Start Date End Date Renard Burgos [address] [place] [phone] PCP - General Internal Medicine 10/16/23 Valve Repairer Reclamation Relationship Specialty Start Date End Date Renard Burgos [address] [place] [phone] PCP - General Internal Medicine 10/16/23 Valve Repairer Reclamation Relationship Specialty Start Date End Date Renard Burgos [address] [place] [address] PCP - General Internal Medicine 10/16/23 Valve Repairer Reclamation Relationship Specialty Start Date End Date Renard Burgos [address] [place] [phone] PCP - General Internal Medicine 10/16/23 Team [...] Provider Active Sta rt: September 09, 2024 Valve Repairer Reclamation Relationship Specialty Start Date End Date Renard Burgos [address] [facility] [address] [place] [address] PCP - General Internal Medicine 10/16/23 Team [...] GARLAND Attending physician Active St art: January 13, 2025 Team Status: Active Member Role/Relationship Status Dates Renrad GARLAND Primary care physician Active Start: January 20, 2025 Renard GARLAND Attending physician Active St art: January 20, 2025 Renard GARLAND Referring Provider Active Sta rt: January 20, 2025 Team Status: Active Member Role/Relationship Status Dates Renard GARLAND Attending physician Active St art: January 27, 2025 Renard GARLAND Referring Provider Active Sta rt: January 27, 2025 Team Status: Active Member Role/Relationship Status Dates Renard Burgos GILL Attending physician Active St art: February 03, 2025 Team Status: Active Member Role/Relationship Status Dates Renard Shellierustam GARLAND Attending physician Active St art: February 10, 2025 Renard Burgos GILL Referring Provider Active Sta rt: February 10, 2025 Team Status: Active Member Role/Relationship Status Dates Renard GARLAND Attending physician Active St art: February 17, 2025 Team Status: Active Member Role/Relationship Status Dates Renard GARLAND Attending physician Active St art: February 21, 2025 Team Status: Active Member Role/Relationship Status Dates Renard Burgos GILL Attending physician Active St art: February 24, [...] BE BASED ON THE PRIMARY CLINICAL RECORDS. [facility] [employer] [facility]. provides no warranty or guarantee of the accuracy or completeness of information in this document.
[2025-03-17 08:58] LABS: Hematocrit 41.3 % (40-54); Hemoglobin 13.3 g/dL (13.0-16.5); Immature Granulocytes Count 0.020 X10^3/uL (0.0-0.0); Mean Corp Hgb Conc 32.2 g/dL (32-36); Mean Corpuscular Volume 92.6 fL (80-94); Mean Platelet Vol. 11.0 fl (6.2-12.0); NRBC Flagged by Analyzer 0 % (0-5); Platelet Count 241 K/mm3 (150-450); RBC Distribution Width CV 13.2 % (11.6-14.6); RBC Distribution Width SD 44.5 fl (35.1-43.9); Red Blood Count 4.46 M/mm3 (4.6-6.2); White Blood Count 7.4 K/mm3 (4.4-11.0)
== END | disposition home or self-care (01) ==
LOC: OLS.SANC 05:00
PROVIDERS: Visit Provider Internal Medicine
DX: Z79.899 Other long term (current) drug therapy (principal)
CPT/HCPCS: 36415; 85025

== ENCOUNTER → 2025-03-24 05:00 | Outpatient (REF) | payer MEDICAID, SELFPAY ==
--- OUTSIDE RECORDS SUMMARY | 2025-03-24 04:11 | XMS RPT_ITS | CCD ---
Author Organization [facility] Care Team Providers Care Pants Maker Name Role Phone JORDAN OREILLY Attending Unavailable PROVIDER, UNKNOWN Referring Unavailable Nathanael Cazares Primary Care Unavailable PROVIDER, UNKNOWN Referring Unavailable Nathanael Cazares Primary Care Unavailable Jaime Lindquist Attending Unavailable Unavailable Primary Care Provider UnavailBethany Navarrete Primary Care Provider Jarvis Kendall MD Unavailable [phone] Bethany Russell MD Primary Care Provider Unavailable [...] tablet via peg tube as needed ACETAMINOPHEN [id number] Ana Stevenson [facility] albuterol 0.83 mg/ml inhalation solution (1 source) beta2-Adrenergic Agonist Start: 03-19-2021 albut veronica (PROVENTIL) nebulizer solution 2.5 mg albuterol 0.833 mg/ml / ipratropium bromide 0.167 mg/ml inhalation solution (18 sources) Anticholinergic, beta2-Adrenergic Agonist Start: 03-20-2021 ipratropium-alb utero l (DUONEB) nebulizer solution 1 ampule Start: 05-22-2019 IPRATROPIUM-AL BUTEROL 0.5-2.5 (3) MG/3ML SOLN 3ml via nebulizer every 4 hours as needed IPRATROPIUM-ALBUTEROL [id number] Ana Diesch [employer]TEGRITY ENGINEER Start: 08-22-2018 take 3 mL by inhalat ion every four hours ipratropium-albuterol (DUONEB) 0.5-2.5 (3) MG/3ML SOLN nebulizer solution Inhale 3 mLs into the lungs every 4 hours 360 mL 0 08/22/2018 Active aspirin 81 mg chewable tablet (9 sources) Platelet Aggregation Inhibitor, Nonsteroidal Anti-inflammatory Drug Start: 05-22-2019 ASPIRIN ADULT LOW STRENGTH 81 MG CHEW one tablet via peg tube daily ASPIRIN [id number] Ana Stevenson [facility] Start: 08-23-2018 aspirin 81 MG chewable tablet 1 tablet by Per NG tube route daily 30 tablet 3 08/23/2018 Active atorvastatin 40 mg oral tablet (9 sources) HMG-CoA Reductase Inhibitor Start: 05-22-2019 ATORVASTATIN CALCIUM 40 MG TABS one tablet via peg tube daily ATORVASTATIN CALCIUM [id number] [facility] Start: 08-22-2018 atorvastatin ( LIPITOR) 40 MG tablet 1 tablet by Per NG tube route nightly 30 tablet 3 08/22/2018 Active castor oil 0.788 mg/mg / indian balsam 0.087 mg/mg topical ointment (7 sources) Standardized Chemical Allergen Start: 08-22-2018 Balsam [place] O il (VENELEX) OINT ointment Apply topically [...] 250mg via peg tube twice daily CLOZAPINE [id number] [facility] Start: 08-22-2018 cloZAPine (AILYN ZARIL) 100 MG [...] via peg tube twice daily DOCUSATE SODIUM [id number] [facility] Start: 08-22-2018 docusate (COLA CE) 50 MG/5ML liquid 10 mLs by Per NG tube route 2 times daily 0 08/22/2018 Active take 1 capsule by mo [facility] twice daily docusate sodium (Colace) [...] one tablet via peg tube nightly MELATONIN [id number] [facility] Start: 08-22-2018 melatonin 3 MG TABS [...] needed. 0 08/23/2018 Active polyethylene glycol 3350 19849 mg powder for oral solution (1 source) [...] Sig (Normalized) Sig (Original) barium sulfate (Varibar Coates, Varibar Honey) 40 % suspension 5 mL [...] SUPP every 24 hours as needed BISACODYL [id number] Ana Stevenson INTEGRITY ENGINEER Start: 05-22-2019 BISACODYL EC 5 MG TBEC one tablet via peg tube daily as needed BISACODYL [id number] Ana Stevenson [employer]TEGRITY ENGINEER chlorhexidine gluconate 1.2 mg/ml mouthwash (10 sources) Start: 05-22-2019 PERIDEX 0.12 % SOLN 15ml twice daily CHLORHEXIDINE GLUCONATE 80443445681 Ana Stevenson LPN chlorhexidine (P eridex) 0.12 % solution Use 15 mL in the mouth or throat if needed for wound care. Active cholecalciferol 1000 unt oral tablet (16 sources) Vitamin D Start: 05-22-2019 VITAMIN D3 25 MCG (1000 UT) TABS one tablet via peg tube daily CHOLECALCIFEROL [id number] Ana Stevenson LPN cholecalciferol (SM Vitamin D3) 25 MCG (1000 UT) tablet Take 1,000 Units by mouth daily. Active dextromethorphan hydrobromide 2 mg/ml / guaiFENesin 20 mg/ml oral solution (1 source) Uncompetitive N-vyhcnq-E-aspartate Receptor Antagonist, Sigma-1 Agonist Start: 05-22-2019 ROBITUSSIN PEAK COLD DM SYRP 5ml via peg tube every 4 hours as needed for cough DEXTROMETHORPHAN-GUAIFENESIN SYRP 44702382098 Ana Stevenson LPN magnesium hydroxide 240 mg/ml oral suspension (1 source) Start: 05-22-2019 MILK OF MAGNESIA CONCENTRATE SUSP 30ml via peg tube every 24 hours MAGNESIUM HYDROXIDE SUSP [id number] Ana Stevenson LPN methylPREDNISolone 40 mg injection (2 sources) Corticosteroid Start: 03-20-2021 End: 03-24-2021 methylPREDNISolone sodium (SOLU-MEDROL) injection 40 mg MULTIPLE VITAMINS-MINERALS (1 source) Start: 05-22-2019 MENS MULTIVITAMIN TABS one tablet via peg tube daily MULTIPLE VITAMINS-MINERALS 37051601280 Ana Stevenson LPN POLYETHYLENE GLYCOL 1450 (1 source) Start: 05-22-2019 POLYETHYLENE GLYCOL 1450 POW D 17 grams via peg tube twice daily POLYETHYLENE GLYCOL 1450 [id number] Ana Stevenson LPN SENNOSIDES-DOCUSATE SODIUM (1 source) Start: 05-22-2019 SENNA PLUS 8.6-50 MG TABS on e tablet via peg tube daily SENNOSIDES-DOCUSATE SODIUM 20980040141 Ana Stevenson LPN 50 ml sodium chloride [...] 9 07-11-2018 Other aftercare (2 sources) terminal operations manager (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; Translations: [terminal operations manager (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] Onset: 9 Episodic Other aftercare (2 sources) Other meterman (current) drug therapy; Translations: [Other skilled nursing [...] 9 07-23-2018 Episodic Other aftercare (1 source) longterm (current) use of antibiotics; Translations: [longterm (current) use of antibiotics] Onset: 5 Episodic Other aftercare (1 source) longterm (current) use of 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; Translations: [terminal operations manager (current) use of 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] Onset: 5 Episodic [...] Absolute Lymph 1.55 X10 3/uL Normal 0.83-4.51 [facility] Comment on above: Order Comment: 109-1 Performed By: #### L 100.0100 ####[facility] [address] [place], [place], [address] Absolute Neut 5.9 X10 3/uL Normal 2.0-7.7 [facility] Comment on above: Order Comment: 109-1 Performed By: #### L 100.0100 ####[facility] [address] [place], [address] Basophils/100 WBC (Bld) 0.6 % Normal 0-1 [facility] Comment on above: Order Comment: 109-1 Performed By: #### L 100.0100 ####[facility] [address] [place], [address] Eosinophils/100 WBC (Bld) 1.0 % Normal 0-5 [facility] Comment on above: Order Comment: 109-1 Performed By: #### L 100.0100 ####[facility] [address] [place], [address] Erythrocyte distribution width (RBC) [Ratio] 13.3 % Normal 11.6-14.6 [facility] Comment on above: Order Comment: 109-1 Performed By: #### L 100.0100 ####[facility] [address] [place], [address] Hematocrit (Bld) [Volume fraction] 39.6 % Low 40-54 [facility] Comment on above: Order Comment: 109-1 Performed By: #### L 100.0100 ####[facility] [address] [place], [address] Hemoglobin (Bld) [Mass/Vol] 12.9 g/dL Low 13.0-16.5 [facility] Comment on above: Order Comment: 109-1 Performed By: #### L 100.0100 ####[facility] [address] [place], [address] IG% 0.400 Normal 0.0-0.9 [facility] Comment on above: Order Comment: 109-1 Result Comment: IG% - Immature Granulocytes (promyelocytes, myelocytes andmetamyelocytes) > 1% indicates that a LEFT SHIFT is Present. Performed By: #### L 100.0100 ####[facility] [address] [place], [address] Lymphocytes/100 WBC (Bld) 18.6 % Low 19-41 [facility] Comment on above: Order Comment: 109-1 Performed By: #### L 100.0100 ####[facility] [address] [place], [address] MCH (RBC) [Entitic mass] 30.0 pg Normal 27.0-32.0 [facility] Comment on above: Order Comment: 109-1 Performed By: #### L 100.0100 ####[facility] [address] [place], [address] MCHC (RBC) [Mass/Vol] 32.6 g/dL Normal 32-36 [facility] Comment on above: Order Comment: 109-1 Performed By: #### L 100.0100 ####[facility] [address] [place], [address] MCV (RBC) [Entitic vol] 92.1 fL Normal 80-94 [facility] Comment on above: Order Comment: 109-1 Performed By: #### L 100.0100 ####[facility] [address] [place], [address] Monocytes/100 WBC (Bld) 8.5 % Normal 0-10 [facility] Comment on above: Order Comment: 109-1 Performed By: #### L 100.0100 ####[facility] [address] [place], [address] Neutrophils/100 WBC (Bld) 70.9 % High 47-70 [facility] Comment on above: Order Comment: 109-1 Performed By: #### L 100.0100 ####[facility] [address] [place], [address] Nucleated RBC (Bld) [#/Vol] 0 10*3/uL Normal 0-5 [facility] Comment on above: Order Comment: 109-1 Performed By: #### L 100.0100 ####[facility] [address] [place], [address] Platelet mean volume (Bld) [Entitic vol] 11.3 fL Normal 6.2-12.0 [facility] Comment on above: Order Comment: 109-1 Performed By: #### L 100.0100 ####[facility] [address] [place], [address] Platelets (Bld) [#/Vol] 206 10*3/uL Normal 150-450 [facility] Comment on above: Order Comment: 109-1 Performed By: #### L 100.0100 ####[facility] [address] [place], [address] RBC (Bld) [#/Vol] 4.30 10*6/uL Low 4.6-6.2 [facility] Comment on above: Order Comment: 109-1 Performed By: #### L 100.0100 ####[facility] [address] [place], [address] RDW SD 45.1 fl High 35.1-43.9 [facility] Comment on above: Order Comment: 109-1 Performed By: #### L 100.0100 ####[facility] [address] [place], [address] WBC (Bld) [#/Vol] 8.3 10*3/uL Normal 4.4-11.0 [facility] Comment on above: Order Comment: 109-1 Performed By: #### L 100.0100 ####[facility] [address] [place], [address] CBC W/Diff, Automatedon 11-0 3-2025 Absolute Lymph 2.24 X10 3/uL Normal 0.83-4.51 [facility] Comment on above: Order Comment: 109.1 Performed By: #### L 100.0100 ####[facility] [address] [place], [address] Absolute Neut 5.2 X10 3/uL Normal 2.0-7.7 [facility] Comment on above: Order Comment: 109.1 Performed By: #### L 100.0100 ####[facility] [address] [place], [address] Basophils/100 WBC (Bld) 0.5 % Normal 0-1 [facility] Comment on above: Order Comment: 109.1 Performed By: #### L 100.0100 ####[facility] [address] [place], [address] Eosinophils/100 WBC (Bld) 1.1 % Normal 0-5 [facility] Comment on above: Order Comment: 109.1 Performed By: #### L 100.0100 ####[facility] [address] [place], [address] Erythrocyte distribution width (RBC) [Ratio] 13.4 % Normal 11.6-14.6 [facility] Comment on above: Order Comment: 109.1 Performed By: #### L 100.0100 ####[facility] [address] [place], [address] Hematocrit (Bld) [Volume fraction] 40.9 % Normal 40-54 [facility] Comment on above: Order Comment: 109.1 Performed By: #### L 100.0100 ####[facility] [address] [place], [address] Hemoglobin (Bld) [Mass/Vol] 13.4 g/dL Normal 13.0-16.5 [facility] Comment on above: Order Comment: 109.1 Performed By: #### L 100.0100 ####[facility] [address] [place], [address] IG% 0.400 Normal 0.0-0.9 [facility] Comment on above: Order Comment: 109.1 Result Comment: IG% - Immature Granulocytes (promyelocytes, myelocytes andmetamyelocytes) > 1% indicates that a LEFT SHIFT is Present. Performed By: #### L 100.0100 ####[facility] [address] [place], [address] Lymphocytes/100 WBC (Bld) 27.0 % Normal 19-41 [facility] Comment on above: Order Comment: 109.1 Performed By: #### L 100.0100 ####[facility] [address] [place], [address] MCH (RBC) [Entitic mass] 30.3 pg Normal 27.0-32.0 [facility] Comment on above: Order Comment: 109.1 Performed By: #### L 100.0100 ####[facility] [address] [place], [address] MCHC (RBC) [Mass/Vol] 32.8 g/dL Normal 32-36 [facility] Comment on above: Order Comment: 109.1 Performed By: #### L 100.0100 ####[facility] [address] [place], [address] MCV (RBC) [Entitic vol] 92.5 fL Normal 80-94 [facility] Comment on above: Order Comment: 109.1 Performed By: #### L 100.0100 ####[facility] [address] [place], [address] Monocytes/100 WBC (Bld) 8.7 % Normal 0-10 [facility] Comment on above: Order Comment: 109.1 Performed By: #### L 100.0100 ####[facility] [address] [place], [address] Neutrophils/100 WBC (Bld) 62.3 % Normal 47-70 [facility] Comment on above: Order Comment: 109.1 Performed By: #### L 100.0100 ####[facility] [address] [place], [address] Nucleated RBC (Bld) [#/Vol] 0 10*3/uL Normal 0-5 [facility] Comment on above: Order Comment: 109.1 Performed By: #### L 100.0100 ####[facility] [address] [place], [address] Platelet mean volume (Bld) [Entitic vol] 11.4 fL Normal 6.2-12.0 [facility] Comment on above: Order Comment: 109.1 Performed By: #### L 100.0100 ####[facility] [address] [place], [address] Platelets (Bld) [#/Vol] 197 10*3/uL Normal 150-450 [facility] Comment on above: Order Comment: 109.1 Performed By: #### L 100.0100 ####[facility] [address] [place], [address] RBC (Bld) [#/Vol] 4.42 10*6/uL Low 4.6-6.2 [facility] Comment on above: Order Comment: 109.1 Performed By: #### L 100.0100 ####[facility] [address] [place], [address] RDW SD 45.8 fl High 35.1-43.9 [facility] Comment on above: Order Comment: 109.1 Performed By: #### L 100.0100 ####[facility] [address] [place], [address] WBC (Bld) [#/Vol] 8.3 10*3/uL Normal 4.4-11.0 [facility] Comment on above: Order Comment: 109.1 Performed By: #### L 100.0100 ####[facility] [address] [place], [address] Absolute lymphocyte countOrd ered By: Renard Burgos on 02-24-2025 Lymphocytes Auto (Unsp spec) [#/Vol] 1.98 10*3/uL 0.83-4.51 [facility] Absolute neutrophil countOrd ered By: Renard Burgos on 02-24-2025 Neutrophils (Bld) [#/Vol] 5.4 10*3/uL 2.0-7.7 [facility] Automated lymphocyte count a s percentage of total leukocytesOrdered By: Renard uBrgos on 02-24-2025 Lymphocytes/100 WBC Auto (Unsp spec) 24.6 % 19-41 [facility] Basophil percentageOrdered B y: Renard Burgos on 02-24-2025 Basophils/100 WBC (Bld) 0.5 % 0-1 [facility] CBC W/Diff, Automatedon 01-30 Absolute Lymph 1.98 X10 3/uL Normal 0.83-4.51 [facility] Comment on above: Order Comment: 109-1 Performed By: #### L 100.0100 ####[facility] [address] [place], [address] Absolute Neut 5.4 X10 3/uL Normal 2.0-7.7 [facility] Comment on above: Order Comment: 109-1 Performed By: #### L 100.0100 ####[facility] [address] [place], [address] Basophils/100 WBC (Bld) 0.5 % Normal 0-1 [facility] Comment on above: Order Comment: 109-1 Performed By: #### L 100.0100 ####[facility] [address] [place], [address] Eosinophils/100 WBC (Bld) 0.9 % Normal 0-5 [facility] Comment on above: Order Comment: 109-1 Performed By: #### L 100.0100 ####[facility] [address] [place], [address] Erythrocyte distribution width (RBC) [Ratio] 13.3 % Normal 11.6-14.6 [facility] Comment on above: Order Comment: 109-1 Performed By: #### L 100.0100 ####[facility] [address] [place], [address] Hematocrit (Bld) [Volume fraction] 42.2 % Normal 40-54 [facility] Comment on above: Order Comment: 109-1 Performed By: #### L 100.0100 ####[facility] [address] [place], [address] Hemoglobin (Bld) [Mass/Vol] 14.0 g/dL Normal 13.0-16.5 [facility] Comment on above: Order Comment: 109-1 Performed By: #### L 100.0100 ####[facility] [address] [place], [address] IG% 0.200 Normal 0.0-0.9 [facility] Comment on above: Order Comment: 109-1 Result Comment: IG% - Immature Granulocytes (promyelocytes, myelocytes andmetamyelocytes) > 1% indicates that a LEFT SHIFT is Present. Performed By: #### L 100.0100 ####[facility] [address] [place], [address] Lymphocytes/100 WBC (Bld) 24.6 % Normal 19-41 [facility] Comment on above: Order Comment: 109-1 Performed By: #### L 100.0100 ####[facility] [address] [place], [address] MCH (RBC) [Entitic mass] 30.1 pg Normal 27.0-32.0 [facility] Comment on above: Order Comment: 109-1 Performed By: #### L 100.0100 ####[facility] [address] [place], [address] MCHC (RBC) [Mass/Vol] 33.2 g/dL Normal 32-36 [facility] Comment on above: Order Comment: 109-1 Performed By: #### L 100.0100 ####[facility] [address] [place], [address] MCV (RBC) [Entitic vol] 90.8 fL Normal 80-94 [facility] Comment on above: Order Comment: 109-1 Performed By: #### L 100.0100 ####[facility] [address] [place], [address] Monocytes/100 WBC (Bld) 7.1 % Normal 0-10 [facility] Comment on above: Order Comment: 109-1 Performed By: #### L 100.0100 ####[facility] [address] [place], [address] Neutrophils/100 WBC (Bld) 66.7 % Normal 47-70 [facility] Comment on above: Order Comment: 109-1 Performed By: #### L 100.0100 ####[facility] [address] [place], [address] Nucleated RBC (Bld) [#/Vol] 0 10*3/uL Normal 0-5 [facility] Comment on above: Order Comment: 109-1 Performed By: #### L 100.0100 ####[facility] [address] [place], [address] Platelet mean volume (Bld) [Entitic vol] 11.2 fL Normal 6.2-12.0 [facility] Comment on above: Order Comment: 109-1 Performed By: #### L 100.0100 ####[facility] [address] [place], [address] Platelets (Bld) [#/Vol] 211 10*3/uL Normal 150-450 [facility] Comment on above: Order Comment: 109-1 Performed By: #### L 100.0100 ####[facility] [address] [place], [address] RBC (Bld) [#/Vol] 4.65 10*6/uL Normal 4.6-6.2 [facility] Comment on above: Order Comment: 109-1 Performed By: #### L 100.0100 ####[facility] [address] [place], [address] RDW SD 44.7 fl High 35.1-43.9 [facility] Comment on above: Order Comment: 109-1 Performed By: #### L 100.0100 ####[facility] [address] [place], [address] WBC (Bld) [#/Vol] 8.1 10*3/uL Normal 4.4-11.0 [facility] Comment on above: Order Comment: 109-1 Performed By: #### L 100.0100 ####[facility] [address] [place], [address] Eosinophil percentageOrdered By: Renard Burgos on 02-24-2025 Eosinophils/100 WBC (Bld) 0.9 % 0-5 [facility] Erythrocyte distribution wid th ratioOrdered By: Renard Burgos on 02-24-2025 Erythrocyte distribution width (RBC) [Ratio] 13.3 % 11.6-14.6 [facility] Erythrocyte distribution wid th standard deviationOrdered By: Renard Burgos on 02-24-2025 Erythrocyte distribution width (RBC) [Ratio] 44.7 fl High 35.1-43.9 [facility] Hematocrit Auto (Bld) [Volum e fraction]Ordered By: Renard Burgos on 02-24-2025 Hematocrit (Bld) [Volume fraction] 42.2 % 40-54 [facility] Hemoglobin measurementOrdere d By: Renard Burgos on 02-24-2025 Hemoglobin (Bld) [Mass/Vol] 14.0 g/dL 13.0-16.5 [facility] Immature granulocytes/100 WB C Auto (Bld)Ordered By: Renard Burgos on 02-24-2025 Immature granulocytes/100 WBC (Bld) 0.200 % 0.0-0.9 [facility] Comment on above: IG% - Immature Granu locytes (promyelocytes, myelocytes and metamyelocytes) > 1% indicates that a LEFT SHIFT is Present. MCV (mean corpuscular volume ) determinationOrdered By: Renard Burgos on 02-24-2025 MCV (RBC) [Entitic vol] 90.8 fL 80-94 [facility] Mean corpuscular hemoglobin (MCH) determinationOrdered By: Renard Burgos on 02-24-2025 MCH (RBC) [Entitic mass] 30.1 pg 27.0-32.0 [facility] Mean corpuscular hemoglobin concentration (MCHC) determinationOrdered By: Renard Burgos on 02-24-2025 MCHC (RBC) [Mass/Vol] 33.2 g/dL 32-36 [facility] Mean platelet volume determi nationOrdered By: Renard Burgos on 02-24-2025 Platelet mean volume (Bld) [Entitic vol] 11.2 fL 6.2-12.0 [facility] Monocyte percentageOrdered B y: Renard Burgos on 02-24-2025 Monocytes/100 WBC (Bld) 7.1 % 0-10 [facility] Neutrophil percentageOrdered By: Renard Burgos on 02-24-2025 Neutrophils/100 WBC (Bld) 66.7 % 47-70 [facility] Nucleated red blood cell per centageOrdered By: Renard Burgos on 02-24-2025 Nucleated RBC/100 WBC (Bld) [Ratio] 0 % 0-5 [facility] Platelet countOrdered By: Garrick Bhatt on 02-24-2025 Platelets (Bld) [#/Vol] 211 10*3/uL 150-450 [facility] RBC Auto (Bld) [#/Vol]Ordere d By: Renard Burgos on 02-24-2025 RBC (Bld) [#/Vol] 4.65 10*6/uL 4.6-6.2 [facility] White blood cell (WBC) count Ordered By: Renard Burgos on 02-24-2025 WBC (Bld) [#/Vol] 8.1 10*3/uL 4.4-11.0 [facility] Anion gap in Serum or Plasma Ordered By: Renard Burgos on 02-21-2025 Anion gap [Moles/Vol] 10 mmol/L - [facility] BUN/creatinine ratioOrdered By: Renard Burgos on 02-21-2025 Urea nitrogen/Creatinine [Mass ratio] 30.1 mg/mg High - [facility] Bilirubin, totalOrdered By: Renard Burgos on 02-21-2025 Bilirubin [Mass/Vol] 0.40 mg/dL 0.00-1.30 [facility] CBC-Complete Blood Cnt No Di ffon 02-21-2025 Erythrocyte distribution width (RBC) [Ratio] 13.7 % Normal 11.6-14.6 [facility] Comment on above: Order Comment: 109.1 Performed By: #### L 500.4100, L501.9985, L100.0500, L500.4050 ####[facility] [address] [place], [address] Hematocrit (Bld) [Volume fraction] 42.1 % Normal 40-54 [facility] Comment on above: Order Comment: 109.1 Performed By: #### L 500.4100, L501.9985, L100.0500, L500.4050 ####[facility] [address] [place], [address] Hemoglobin (Bld) [Mass/Vol] 13.6 g/dL Normal 13.0-16.5 [facility] Comment on above: Order Comment: 109.1 Performed By: #### L 500.4100, L501.9985, L100.0500, L500.4050 ####[facility] [address] [place], [address] MCH (RBC) [Entitic mass] 30.2 pg Normal 27.0-32.0 [facility] Comment on above: Order Comment: 109.1 Performed By: #### L 500.4100, L501.9985, L100.0500, L500.4050 ####[facility] [address] [place], [address] MCHC (RBC) [Mass/Vol] 32.3 g/dL Normal 32-36 [facility] Comment on above: Order Comment: 109.1 Performed By: #### L 500.4100, L501.9985, L100.0500, L500.4050 ####[facility] [address] [place], [address] MCV (RBC) [Entitic vol] 93.3 fL Normal 80-94 [facility] Comment on above: Order Comment: 109.1 Performed By: #### L 500.4100, L501.9985, L100.0500, L500.4050 ####[facility] [address] [place], [address] Platelet mean volume (Bld) [Entitic vol] 11.6 fL Normal 6.2-12.0 [facility] Comment on above: Order Comment: 109.1 Performed By: #### L 500.4100, L501.9985, L100.0500, L500.4050 ####[facility] [address] [place], [address] Platelets (Bld) [#/Vol] 173 10*3/uL Normal 150-450 [facility] Comment on above: Order Comment: 109.1 Performed By: #### L 500.4100, L501.9985, L100.0500, L500.4050 ####[facility] [address] [place], [address] RBC (Bld) [#/Vol] 4.51 10*6/uL Low 4.6-6.2 [facility] Comment on above: Order Comment: 109.1 Performed By: #### L 500.4100, L501.9985, L100.0500, L500.4050 ####[facility] [address] [place], [address] RDW SD 46.5 fl High 35.1-43.9 [facility] Comment on above: Order Comment: 109.1 Performed By: #### L 500.4100, L501.9985, L100.0500, L500.4050 ####[facility] [address] [place], [address] WBC (Bld) [#/Vol] 10.2 10*3/uL Normal 4.4-11.0 [facility] Comment on above: Order Comment: 109.1 Performed By: #### L 500.4100, L501.9985, L100.0500, L500.4050 ####[facility] [address] [place], [address] Calculated very low density lipoprotein (VLDL) cholesterol measurementOrdered By: Renard Burgos on 02-21-2025 Calculated very low density lipoprotein (VLDL) cholesterol measurement 37 mg/dL 5-40 [facility] Carbon dioxide, total [Moles /volume] in Central venous bloodOrdered By: Renard Burgos on 02-21-2025 CO2 [Moles/Vol] 22.4 mmol/L 21.0-32.0 [facility] Chloride assayOrdered By: Garrick Bhatt on 02-21-2025 Chloride [Moles/Vol] 104 mmol/L 98-108 [facility] Metabolic Prof ilon 02-21-2025 Albumin [Mass/Vol] 3.3 g/dL Low 3.4-4.8 [facility] Comment on above: Order Comment: 109.1 Performed By: #### L 500.4100, L501.9985, L100.0500, L500.4050 ####[facility] [address] [place], [address] Albumin/Globulin [Mass ratio] 1.1 {ratio} Normal 0.9-2.4 [facility] Comment on above: Order Comment: 109.1 Performed By: #### L 500.4100, L501.9985, L100.0500, L500.4050 ####[facility] [address] [place], [address] ALK PHOS 137 U/L High 40-129 [facility] Comment on above: Order Comment: 109.1 Performed By: #### L 500.4100, L501.9985, L100.0500, L500.4050 ####[facility] [address] [place], [address] ALT [Catalytic activity/Vol] 22 U/L Normal <=46 [facility] Comment on above: Order Comment: 109.1 Result Comment: Hemo lysis present, Results??could be affected.?? Performed By: #### L 500.4100, L501.9985, L100.0500, L500.4050 ####[facility] [address] [place], [address] AST [Catalytic activity/Vol] 39 U/L High <=37 [facility] Comment on above: Order Comment: 109.1 Result Comment: Hemo lysis present, Results??could be affected.?? Performed By: #### L 500.4100, L501.9985, L100.0500, L500.4050 ####[facility] [address] [place], [address] Bilirubin [Mass/Vol] 0.40 mg/dL Normal 0.00-1.30 [facility] Comment on above: Order Comment: 109.1 Performed By: #### L 500.4100, L501.9985, L100.0500, L500.4050 ####[facility] [address] [place], [address] BUN/CRE 30.1 RATIO High 10-20 [facility] Comment on above: Order Comment: 109.1 Performed By: #### L 500.4100, L501.9985, L100.0500, L500.4050 ####[facility] [address] [place], [address] Calcium [Mass/Vol] 8.6 mg/dL Normal 7.6-11.0 [facility] Comment on above: Order Comment: 109.1 Performed By: #### L 500.4100, L501.9985, L100.0500, L500.4050 ####[facility] [address] [place], [address] Chloride [Moles/Vol] 104 mmol/L Normal 98-108 [facility] Comment on above: Order Comment: 109.1 Performed By: #### L 500.4100, L501.9985, L100.0500, L500.4050 ####[facility] [address] [place], [address] CO2 [Moles/Vol] 22.4 mmol/L Normal 21.0-32.0 [facility] Comment on above: Order Comment: 109.1 Performed By: #### L 500.4100, L501.9985, L100.0500, L500.4050 ####[facility] [address] [place], [address] Creatinine [Mass/Vol] 0.63 mg/dL Low 0.70-1.20 [facility] Comment on above: Order Comment: 109.1 Performed By: #### L 500.4100, L501.9985, L100.0500, L500.4050 ####[facility] [address] [place], [address] GAP 10 Normal 5-15 [facility] Comment on above: Order Comment: 109.1 Performed By: #### L 500.4100, L501.9985, L100.0500, L500.4050 ####[facility] [address] [place], [address] GFR/1.73 sq M.predicted among non-blacks MDRD (S/P/Bld) [Vol rate/Area] 104 mL/min/{1.73_m2} Normal >60 [facility] Comment on above: Order Comment: 109.1 Result Comment: mL/m in/1.73m2 CKD-EPI Creatinine Equation (2020) Performed By: #### L 500.4100, L501.9985, L100.0500, L500.4050 ####[facility] [address] [place], [address] Globulin (S) [Mass/Vol] 3.0 g/dL Normal 2.2-4.2 [facility] Comment on above: Order Comment: 109.1 Performed By: #### L 500.4100, L501.9985, L100.0500, L500.4050 ####[facility] [address] [place], [address] Glucose [Mass/Vol] 104 mg/dL High 70-99 [facility] Comment on above: Order Comment: 109.1 Performed By: #### L 500.4100, L501.9985, L100.0500, L500.4050 ####[facility] [address] [place], [address] Potassium [Moles/Vol] 5.0 mmol/L Normal 3.3-5.1 [facility] Comment on above: Order Comment: 109.1 Result Comment: Hemo lysis present, Results??could be affected.?? Performed By: #### L 500.4100, L501.9985, L100.0500, L500.4050 ####[facility] [address] [place], [address] Sodium [Moles/Vol] 137 mmol/L Normal 133-145 [facility] Comment on above: Order Comment: 109.1 Performed By: #### L 500.4100, L501.9985, L100.0500, L500.4050 ####[facility] [address] [place], [address] T PROT 6.3 g/dL Normal 5.9-8.4 [facility] Comment on above: Order Comment: 109.1 Performed By: #### L 500.4100, L501.9985, L100.0500, L500.4050 ####[facility] [address] [place], [address] Urea nitrogen [Mass/Vol] 19 mg/dL Normal 4-19 [facility] Comment on above: Order Comment: 109.1 Performed By: #### L 500.4100, L501.9985, L100.0500, L500.4050 ####[facility] [address] [place], [address] Erythrocyte distribution wid th ratioOrdered By: Renard Burgos on 02-21-2025 Erythrocyte distribution width (RBC) [Ratio] 13.7 % 11.6-14.6 [facility] Erythrocyte distribution wid th standard deviationOrdered By: Renard Burgos on 02-21-2025 Erythrocyte distribution width (RBC) [Ratio] 46.5 fl High 35.1-43.9 [facility] Glomerular filtration rate ( GFR) estimation/1.73 sq m using serum, plasma, or whole bOrdered By: Renard Burgos on 02-21-2025 GFR/1.73 sq M.predicted among non-blacks MDRD (S/P/Bld) [Vol rate/Area] 104 mL/min/{1.73_m2} >60 [facility] Comment on above: mL/min/1.73m2 CKD-EP I Creatinine Equation (2020) Hematocrit Auto (Bld) [Volum e fraction]Ordered By: Renard Burgos on 02-21-2025 Hematocrit (Bld) [Volume fraction] 42.1 % 40-54 [facility] Hemoglobin A1con 02-21-2025 HbA1c (Bld) [Mass fraction] 5.4 % Normal <=5.6 [facility] Comment on above: Order Comment: 109.1 Result Comment: Norm al < 5.7 % Prediabetic 5.7 - 6.4 % Diabetic >or= 6.5 % Please note range changes. Performed By: #### L 500.4100, L501.9985, L100.0500, L500.4050 ####[facility] [address] [place], [place], [address] Hemoglobin A1c percentageOrd ered By: Renard Burgos on 02-21-2025 HbA1c (Bld) [Mass fraction] 5.4 % <5.7 [facility] Comment on above: Normal < 5.7 % Predi abetic 5.7 - 6.4 % Diabetic >or= 6.5 % Please note range changes. Hemoglobin measurementOrdere d By: Renard Burgos on 02-21-2025 Hemoglobin (Bld) [Mass/Vol] 13.6 g/dL 13.0-16.5 [facility] LDL calc ser/plasOrdered By: Renard Burgos on 02-21-2025 Cholesterol in LDL [Mass/Vol] 75 mg/dL [facility] Comment on above: Heupcniqog=813-313 m g/dL & Higher Qfle=535 mg/dL or greaterSampson Equation 2019 for LDL-C Laboratory - Chemistry and C hemistry - challengeOrdered By: Renard Burgos on 02-21-2025 AST [Catalytic activity/Vol] 39 U/L High <38 [facility] Comment on above: Hemolysis present, R esults could be affected. Lipid Profileon 02-21-2025 CHOL:HDL 4.32 Normal [facility] Comment on above: Order Comment: 109.1 Performed By: #### L 500.4100, L501.9985, L100.0500, L500.4050 ####[facility] [address] [place], [address] Cholesterol [Mass/Vol] 139 mg/dL Normal <=200 [facility] Comment on above: Order Comment: 109.1 Result Comment: Chol esterol level, Desirable <200 mg/dLBorderline high cholesterol 200-239 mg/dLHigh cholesterol >=240 mg/dLRecommendations of the NCEP Adult Treatment Panel for thefollowing risk-cutoff thresholds for the [place] Americanpopulation. Performed By: #### L 500.4100, L501.9985, L100.0500, L500.4050 ####[facility] [address] [place], [address] Cholesterol in HDL [Mass/Vol] 32 mg/dL Low [facility] Comment on above: Order Comment: 109.1 Result Comment: Lucy onal Cholesterol Education Program (NCEP) guidelines:<40 mg/dL: Low HDL-cholesterol (major risk factor for CHD)>= 60 mg/dL: High HDL-cholesterol (negative risk factor forCHD)HDL-cholesterol is affected by a number of factors, e.g.smoking, exercise, hormones, sex and age. Performed By: #### L 500.4100, L501.9985, L100.0500, L500.4050 ####[facility] [address] [place], [address] Cholesterol in LDL [Mass/Vol] 75 mg/dL Normal [facility] Comment on above: Order Comment: 109.1 Result Comment: Bord birqni=402-288 mg/dL Higher Puxq=091 mg/dL or greaterSampson Equation 2020 for LDL-C Performed By: #### L 500.4100, L501.9985, L100.0500, L500.4050 ####[facility] [address] [place], [address] Cholesterol in VLDL [Mass/Vol] 37 mg/dL Normal 5-40 [facility] Comment on above: Order Comment: 109.1 Performed By: #### L 500.4100, L501.9985, L100.0500, L500.4050 ####[facility] [address] [place], [address] Triglyceride [Mass/Vol] 185 mg/dL Normal [facility] Comment on above: Order Comment: 109.1 Result Comment: The drugs N-Acetylcysteine and Metamizole may falselydepress this assay.Normal range: <150 mg/dLBorderline High: 150-199 mg/dLHigh: 200-499 mg/dLVery High: >500 mg/dL Performed By: #### L 500.4100, L501.9985, L100.0500, L500.4050 ####[facility] [address] [place], [address] MCV (mean corpuscular volume ) determinationOrdered By: Renard Burgos on 02-21-2025 MCV (RBC) [Entitic vol] 93.3 fL 80-94 [facility] Mean corpuscular hemoglobin (MCH) determinationOrdered By: Renard Burgos on 02-21-2025 MCH (RBC) [Entitic mass] 30.2 pg 27.0-32.0 [facility] Mean corpuscular hemoglobin concentration (MCHC) determinationOrdered By: Renard Burgos on 02-21-2025 MCHC (RBC) [Mass/Vol] 32.3 g/dL 32-36 [facility] Mean platelet volume determi nationOrdered By: eRnard Burgos on 02-21-2025 Platelet mean volume (Bld) [Entitic vol] 11.6 fL 6.2-12.0 [facility] Platelet countOrdered By: Garrick Bhatt on 02-21-2025 Platelets (Bld) [#/Vol] 173 10*3/uL 150-450 [facility] Potassium measurement (mass/ volume)Ordered By: Renard Burgos on 02-21-2025 Potassium (Unsp spec) [Mass/Vol] 5.0 mmol/L 3.3-5.1 [facility] Comment on above: Hemolysis present, R esults could be affected. RBC Auto (Bld) [#/Vol]Ordere d By: Renard Burgos on 02-21-2025 RBC (Bld) [#/Vol] 4.51 10*6/uL Low 4.6-6.2 [facility] Screening total cholesterol/ high density lipoprotein (HDL) cholesterol ratioOrdered By: Renard Burgos on 02-21-2025 Cholesterol.total/Cceilia sterol in HDL [Mass ratio] 4.32 {ratio} [facility] Serum creatinine measurement (mass/volume)Ordered By: Renard Burgos on 02-21-2025 Creatinine [Mass/Vol] 0.63 mg/dL Low 0.70-1.20 [facility] Serum globulin measurementOr dered By: Renard Burgos on 02-21-2025 Globulin (S) [Mass/Vol] 3.0 g/dL 2.2-4.2 [facility] Serum glucose measurement (m ass/volume)Ordered By: Renard Burgos on 02-21-2025 Glucose [Mass/Vol] 104 mg/dL High 70-99 [facility] Serum or plasma alanine kay otransferase (ALT) measurementOrdered By: Renard Burgos on 02-21-2025 ALT [Catalytic activity/Vol] 22 U/L <47 [facility] Comment on above: Hemolysis present, R esults could be affected. Serum or plasma albumin gordy urement (mass/volume)Ordered By: Renard Burgos on 02-21-2025 Albumin [Mass/Vol] 3.3 g/dL Low 3.4-4.8 [facility] Serum or plasma albumin/glob ulin mass ratioOrdered By: Renard Burgos on 02-21-2025 Albumin/Globulin [Mass ratio] 1.1 {ratio} 0.9-2.4 [facility] Serum or plasma alkaline trace sphatase measurementOrdered By: Renard Burgos on 02-21-2025 ALP [Catalytic activity/Vol] 137 U/L High 40-129 [facility] Serum or plasma calcium gordy urement (mass/volume)Ordered By: Renard Burgos on 02-21-2025 Calcium [Mass/Vol] 8.6 mg/dL 7.6-11.0 [facility] Serum or plasma cholesterol in HDL measurement (mass/volume)Ordered By: Renard Burgos on 02-21-2025 Cholesterol in HDL [Mass/Vol] 32 mg/dL Low >40 [facility] Comment on above: National Cholesterol Education Program (NCEP) guidelines:<40 mg/dL: Low HDL-cholesterol (major risk factor for CHD)>= 60 mg/dL: High HDL-cholesterol (negative risk factor for CHD)HDL-cholesterol is affected by a number of factors, e.g. smoking, exercise, hormones, sex and age. Serum or plasma cholesterol measurement (mass/volume)Ordered By: Renard Burgos on 02-21-2025 Cholesterol [Mass/Vol] 139 mg/dL <201 [facility] Comment on above: Cholesterol level, D esirable <200 mg/dLBorderline high cholesterol 200-239 mg/dLHigh cholesterol >=240 mg/dLRecommendations of the NCEP Adult Treatment Panel for the following risk-cutoff thresholds for the [place] population. Serum or plasma urea nitroge n measurement (mass/volume)Ordered By: Renard Burgos on 02-21-2025 Urea nitrogen [Mass/Vol] 19 mg/dL 4-19 [facility] Sodium levelOrdered By: Lamine Burgos on 02-21-2025 Sodium [Moles/Vol] 137 mmol/L 133-145 [facility] Total proteinOrdered By: Lyubov Burgos on 02-21-2025 Protein [Mass/Vol] 6.3 g/dL 5.9-8.4 [facility] Triglycerides measurementOrd ered By: Renard Burgos on 02-21-2025 Triglyceride [Mass/Vol] 185 mg/dL <199 [facility] Comment on above: The drugs N-Acetylcy steine and Metamizole may falsely depress this assay. Normal range: <150 mg/dLBorderline High: 150-199 mg/dLHigh: 200-499 mg/dLVery High: >500 mg/dL White blood cell (WBC) count Ordered By: Renard Burgos on 02-21-2025 WBC (Bld) [#/Vol] 10.2 10*3/uL 4.4-11.0 [facility] Absolute lymphocyte countOrd ered By: Renard Burgos on 02-17-2025 Lymphocytes Auto (Unsp spec) [#/Vol] 2.31 10*3/uL 0.83-4.51 [facility] Absolute neutrophil countOrd ered By: Renard Burgos on 02-17-2025 Neutrophils (Bld) [#/Vol] 5.5 10*3/uL 2.0-7.7 [facility] Automated lymphocyte count a s percentage of total leukocytesOrdered By: Renard Burgos on 02-17-2025 Lymphocytes/100 WBC Auto (Unsp spec) 26.1 % 19-41 [facility] Basophil percentageOrdered B y: Renard Burgos on 02-17-2025 Basophils/100 WBC (Bld) 0.6 % 0-1 [facility] CBC W/Diff, Automatedon 01-30-2024 Absolute Lymph 2.31 X10 3/uL Normal 0.83-4.51 [facility] Comment on above: Order Comment: 109.1 Performed By: #### L 100.0100 ####[facility] [address] [place], [address] Absolute Neut 5.5 X10 3/uL Normal 2.0-7.7 [facility] Comment on above: Order Comment: 109.1 Performed By: #### L 100.0100 ####[facility] [address] [place], [address] Basophils/100 WBC (Bld) 0.6 % Normal 0-1 [facility] Comment on above: Order Comment: 109.1 Performed By: #### L 100.0100 ####[facility] [address] [place], [address] Eosinophils/100 WBC (Bld) 0.9 % Normal 0-5 [facility] Comment on above: Order Comment: 109.1 Performed By: #### L 100.0100 ####[facility] [address] [place], [address] Erythrocyte distribution width (RBC) [Ratio] 13.8 % Normal 11.6-14.6 [facility] Comment on above: Order Comment: 109.1 Performed By: #### L 100.0100 ####[facility] [address] [place], [address] Hematocrit (Bld) [Volume fraction] 43.6 % Normal 40-54 [facility] Comment on above: Order Comment: 109.1 Performed By: #### L 100.0100 ####[facility] [address] [place], [address] Hemoglobin (Bld) [Mass/Vol] 14.2 g/dL Normal 13.0-16.5 [facility] Comment on above: Order Comment: 109.1 Performed By: #### L 100.0100 ####[facility] [address] [place], [address] IG% 0.300 Normal 0.0-0.9 [facility] Comment on above: Order Comment: 109.1 Result Comment: IG% - Immature Granulocytes (promyelocytes, myelocytes andmetamyelocytes) > 1% indicates that a LEFT SHIFT is Present. Performed By: #### L 100.0100 ####[facility] [address] [place], [address] Lymphocytes/100 WBC (Bld) 26.1 % Normal 19-41 [facility] Comment on above: Order Comment: 109.1 Performed By: #### L 100.0100 ####[facility] [address] [place], [address] MCH (RBC) [Entitic mass] 30.4 pg Normal 27.0-32.0 [facility] Comment on above: Order Comment: 109.1 Performed By: #### L 100.0100 ####[facility] [address] [place], [address] MCHC (RBC) [Mass/Vol] 32.6 g/dL Normal 32-36 [facility] Comment on above: Order Comment: 109.1 Performed By: #### L 100.0100 ####[facility] [address] [place], [address] MCV (RBC) [Entitic vol] 93.4 fL Normal 80-94 [facility] Comment on above: Order Comment: 109.1 Performed By: #### L 100.0100 ####[facility] [address] [place], [address] Monocytes/100 WBC (Bld) 10.4 % High 0-10 [facility] Comment on above: Order Comment: 109.1 Performed By: #### L 100.0100 ####[facility] [address] [place], [address] Neutrophils/100 WBC (Bld) 61.7 % Normal 47-70 [facility] Comment on above: Order Comment: 109.1 Performed By: #### L 100.0100 ####[facility] [address] [place], [address] Nucleated RBC (Bld) [#/Vol] 0 10*3/uL Normal 0-5 [facility] Comment on above: Order Comment: 109.1 Performed By: #### L 100.0100 ####[facility] [address] [place], [address] Platelet mean volume (Bld) [Entitic vol] 11.3 fL Normal 6.2-12.0 [facility] Comment on above: Order Comment: 109.1 Performed By: #### L 100.0100 ####[facility] [address] [place], [address] Platelets (Bld) [#/Vol] 197 10*3/uL Normal 150-450 [facility] Comment on above: Order Comment: 109.1 Performed By: #### L 100.0100 ####[facility] [address] [place], [address] RBC (Bld) [#/Vol] 4.67 10*6/uL Normal 4.6-6.2 [facility] Comment on above: Order Comment: 109.1 Performed By: #### L 100.0100 ####[facility] [address] [place], [address] RDW SD 47.2 fl High 35.1-43.9 [facility] Comment on above: Order Comment: 109.1 Performed By: #### L 100.0100 ####[facility] [address] [place], [address] WBC (Bld) [#/Vol] 8.9 10*3/uL Normal 4.4-11.0 [facility] Comment on above: Order Comment: 109.1 Performed By: #### L 100.0100 ####[facility] [address] [place], [address] Eosinophil percentageOrdered By: Renard Burgos on 02-17-2025 Eosinophils/100 WBC (Bld) 0.9 % 0-5 [facility] Erythrocyte distribution wid th ratioOrdered By: Renard Burgos on 02-17-2025 Erythrocyte distribution width (RBC) [Ratio] 13.8 % 11.6-14.6 [facility] Erythrocyte distribution wid th standard deviationOrdered By: Renard Burgos on 02-17-2025 Erythrocyte distribution width (RBC) [Ratio] 47.2 fl High 35.1-43.9 [facility] Hematocrit Auto (Bld) [Volum e fraction]Ordered By: Renard Burgos on 02-17-2025 Hematocrit (Bld) [Volume fraction] 43.6 % 40-54 [facility] Hemoglobin measurementOrdere d By: Renard Burgos on 02-17-2025 Hemoglobin (Bld) [Mass/Vol] 14.2 g/dL 13.0-16.5 [facility] Immature granulocytes/100 WB C Auto (Bld)Ordered By: Renard Burgos on 02-17-2025 Immature granulocytes/100 WBC (Bld) 0.300 % 0.0-0.9 [facility] Comment on above: IG% - Immature Granu locytes (promyelocytes, myelocytes and metamyelocytes) > 1% indicates that a LEFT SHIFT is Present. MCV (mean corpuscular volume ) determinationOrdered By: Renard Burgos on 02-17-2025 MCV (RBC) [Entitic vol] 93.4 fL 80-94 [facility] Mean corpuscular hemoglobin (MCH) determinationOrdered By: Renard Burgos on 02-17-2025 MCH (RBC) [Entitic mass] 30.4 pg 27.0-32.0 [facility] Mean corpuscular hemoglobin concentration (MCHC) determinationOrdered By: Renard Burgos on 02-17-2025 MCHC (RBC) [Mass/Vol] 32.6 g/dL 32-36 [facility] Mean platelet volume determi nationOrdered By: Renard Burgos on 02-17-2025 Platelet mean volume (Bld) [Entitic vol] 11.3 fL 6.2-12.0 [facility] Monocyte percentageOrdered B y: Renard Burgos on 02-17-2025 Monocytes/100 WBC (Bld) 10.4 % High 0-10 [facility] Neutrophil percentageOrdered By: Renard Burgos on 02-17-2025 Neutrophils/100 WBC (Bld) 61.7 % 47-70 [facility] Nucleated red blood cell per centageOrdered By: Renard Burgos on 02-17-2025 Nucleated RBC/100 WBC (Bld) [Ratio] 0 % 0-5 [facility] Platelet countOrdered By: Garrick Bhatt on 02-17-2025 Platelets (Bld) [#/Vol] 197 10*3/uL 150-450 [facility] RBC Auto (Bld) [#/Vol]Ordere d By: Renard Burgos on 02-17-2025 RBC (Bld) [#/Vol] 4.67 10*6/uL 4.6-6.2 [facility] White blood cell (WBC) count Ordered By: Renard Burgos on 02-17-2025 WBC (Bld) [#/Vol] 8.9 10*3/uL 4.4-11.0 [facility] Absolute lymphocyte countOrd ered By: Renard Burgos on 02-10-2025 Lymphocytes Auto (Unsp spec) [#/Vol] 2.53 10*3/uL 0.83-4.51 [facility] Absolute neutrophil countOrd ered By: Renard Burgos on 02-10-2025 Neutrophils (Bld) [#/Vol] 5.5 10*3/uL 2.0-7.7 [facility] Automated lymphocyte count a s percentage of total leukocytesOrdered By: Renard Hensleyhola on 02-10-2025 Lymphocytes/100 WBC Auto (Unsp spec) 28.0 % 19-41 [facility] Basophil percentageOrdered B y: Renard Hensleyrustam on 02-10-2025 Basophils/100 WBC (Bld) 0.7 % 0-1 [facility] CBC W/Diff, Automatedon 01-29 Absolute Lymph 2.53 X10 3/uL Normal 0.83-4.51 [facility] Comment on above: Order Comment: 109 Performed By: #### L 100.0100 ####[facility] [address] [place], [address] Absolute Neut 5.5 X10 3/uL Normal 2.0-7.7 [facility] Comment on above: Order Comment: 109 Performed By: #### L 100.0100 ####[facility] [address] [place], [address] Basophils/100 WBC (Bld) 0.7 % Normal 0-1 [facility] Comment on above: Order Comment: 109 Performed By: #### L 100.0100 ####[facility] [address] [place], [address] Eosinophils/100 WBC (Bld) 0.8 % Normal 0-5 [facility] Comment on above: Order Comment: 109 Performed By: #### L 100.0100 ####[facility] [address] [place], [address] Erythrocyte distribution width (RBC) [Ratio] 13.6 % Normal 11.6-14.6 [facility] Comment on above: Order Comment: 109 Performed By: #### L 100.0100 ####[facility] [address] [place], [address] Hematocrit (Bld) [Volume fraction] 43.9 % Normal 40-54 [facility] Comment on above: Order Comment: 109 Performed By: #### L 100.0100 ####[facility] [address] [place], [address] Hemoglobin (Bld) [Mass/Vol] 14.2 g/dL Normal 13.0-16.5 [facility] Comment on above: Order Comment: 109 Performed By: #### L 100.0100 ####[facility] [address] [place], [address] IG% 0.300 Normal 0.0-0.9 [facility] Comment on above: Order Comment: 109 Result Comment: IG% - Immature Granulocytes (promyelocytes, myelocytes andmetamyelocytes) > 1% indicates that a LEFT SHIFT is Present. Performed By: #### L 100.0100 ####[facility] [address] [place], [address] Lymphocytes/100 WBC (Bld) 28.0 % Normal 19-41 [facility] Comment on above: Order Comment: 109 Performed By: #### L 100.0100 ####[facility] [address] [place], [address] MCH (RBC) [Entitic mass] 29.6 pg Normal 27.0-32.0 [facility] Comment on above: Order Comment: 109 Performed By: #### L 100.0100 ####[facility] [address] [place], [address] MCHC (RBC) [Mass/Vol] 32.3 g/dL Normal 32-36 [facility] Comment on above: Order Comment: 109 Performed By: #### L 100.0100 ####[facility] [address] [place], [address] MCV (RBC) [Entitic vol] 91.6 fL Normal 80-94 [facility] Comment on above: Order Comment: 109 Performed By: #### L 100.0100 ####[facility] [address] [place], [address] Monocytes/100 WBC (Bld) 8.9 % Normal 0-10 [facility] Comment on above: Order Comment: 109 Performed By: #### L 100.0100 ####[facility] [address] [place], [address] Neutrophils/100 WBC (Bld) 61.3 % Normal 47-70 [facility] Comment on above: Order Comment: 109 Performed By: #### L 100.0100 ####[facility] [address] [place], [address] Nucleated RBC (Bld) [#/Vol] 0 10*3/uL Normal 0-5 [facility] Comment on above: Order Comment: 109 Performed By: #### L 100.0100 ####[facility] [address] [place], [address] Platelet mean volume (Bld) [Entitic vol] 11.3 fL Normal 6.2-12.0 [facility] Comment on above: Order Comment: 109 Performed By: #### L 100.0100 ####[facility] [address] [place], [address] Platelets (Bld) [#/Vol] 217 10*3/uL Normal 150-450 [facility] Comment on above: Order Comment: 109 Performed By: #### L 100.0100 ####[facility] [address] [place], [address] RBC (Bld) [#/Vol] 4.79 10*6/uL Normal 4.6-6.2 [facility] Comment on above: Order Comment: 109 Performed By: #### L 100.0100 ####[facility] [address] [place], [address] RDW SD 45.8 fl High 35.1-43.9 [facility] Comment on above: Order Comment: 109 Performed By: #### L 100.0100 ####[facility] [address] [place], [address] WBC (Bld) [#/Vol] 9.0 10*3/uL Normal 4.4-11.0 [facility] Comment on above: Order Comment: 109 Performed By: #### L 100.0100 ####[facility] [address] [place], [address] Eosinophil percentageOrdered By: Renard Burgos on 02-10-2025 Eosinophils/100 WBC (Bld) 0.8 % 0-5 [facility] Erythrocyte distribution wid th ratioOrdered By: Renard Burgos on 02-10-2025 Erythrocyte distribution width (RBC) [Ratio] 13.6 % 11.6-14.6 [facility] Erythrocyte distribution wid th standard deviationOrdered By: Renard Burgos on 02-10-2025 Erythrocyte distribution width (RBC) [Ratio] 45.8 fl High 35.1-43.9 [facility] Hematocrit Auto (Bld) [Volum e fraction]Ordered By: Renard Burgos on 02-10-2025 Hematocrit (Bld) [Volume fraction] 43.9 % 40-54 [facility] Hemoglobin measurementOrdere d By: Renard Burgos on 02-10-2025 Hemoglobin (Bld) [Mass/Vol] 14.2 g/dL 13.0-16.5 [facility] Immature granulocytes/100 WB C Auto (Bld)Ordered By: Renard Burgos on 02-10-2025 Immature granulocytes/100 WBC (Bld) 0.300 % 0.0-0.9 [facility] Comment on above: IG% - Immature Granu locytes (promyelocytes, myelocytes and metamyelocytes) > 1% indicates that a LEFT SHIFT is Present. MCV (mean corpuscular volume ) determinationOrdered By: Renard Burgos on 02-10-2025 MCV (RBC) [Entitic vol] 91.6 fL 80-94 [facility] Mean corpuscular hemoglobin (MCH) determinationOrdered By: Renard Burgos on 02-10-2025 MCH (RBC) [Entitic mass] 29.6 pg 27.0-32.0 [facility] Mean corpuscular hemoglobin concentration (MCHC) determinationOrdered By: Renard Burgos on 02-10-2025 MCHC (RBC) [Mass/Vol] 32.3 g/dL 32-36 [facility] Mean platelet volume determi nationOrdered By: Renard Burgos on 02-10-2025 Platelet mean volume (Bld) [Entitic vol] 11.3 fL 6.2-12.0 [facility] Monocyte percentageOrdered B y: Renard Burgos on 02-10-2025 Monocytes/100 WBC (Bld) 8.9 % 0-10 [facility] Neutrophil percentageOrdered By: Renard Burgos on 02-10-2025 Neutrophils/100 WBC (Bld) 61.3 % 47-70 [facility] Nucleated red blood cell per centageOrdered By: Renard Burgos on 02-10-2025 Nucleated RBC/100 WBC (Bld) [Ratio] 0 % 0-5 [facility] Platelet countOrdered By: Garrick Bhatt on 02-10-2025 Platelets (Bld) [#/Vol] 217 10*3/uL 150-450 [facility] RBC Auto (Bld) [#/Vol]Ordere d By: Renard Burgos on 02-10-2025 RBC (Bld) [#/Vol] 4.79 10*6/uL 4.6-6.2 [facility] White blood cell (WBC) count Ordered By: Renard Burgos on 02-10-2025 WBC (Bld) [#/Vol] 9.0 10*3/uL 4.4-11.0 [facility] Absolute lymphocyte countOrd ered By: Renard Burgos on 02-03-2025 Lymphocytes Auto (Unsp spec) [#/Vol] 2.12 10*3/uL 0.83-4.51 [facility] Absolute neutrophil countOrd ered By: Renard Burgos on 02-03-2025 Neutrophils (Bld) [#/Vol] 6.0 10*3/uL 2.0-7.7 [facility] Automated lymphocyte count a s percentage of total leukocytesOrdered By: Renard Burgos on 02-03-2025 Lymphocytes/100 WBC Auto (Unsp spec) 22.9 % 19-41 [facility] Basophil percentageOrdered B y: Renard Burgos on 02-03-2025 Basophils/100 WBC (Bld) 0.5 % 0-1 [facility] CBC W/Diff, Automatedon 10-0 Absolute Lymph 2.12 X10 3/uL Normal 0.83-4.51 [facility] Comment on above: Order Comment: 109.1 Performed By: #### L 100.0100 ####[facility] [address] [place], [address] Absolute Neut 6.0 X10 3/uL Normal 2.0-7.7 [facility] Comment on above: Order Comment: 109.1 Performed By: #### L 100.0100 ####[facility] [address] [place], [address] Basophils/100 WBC (Bld) 0.5 % Normal 0-1 [facility] Comment on above: Order Comment: 109.1 Performed By: #### L 100.0100 ####[facility] [address] [place], [address] Eosinophils/100 WBC (Bld) 0.8 % Normal 0-5 [facility] Comment on above: Order Comment: 109.1 Performed By: #### L 100.0100 ####[facility] [address] [place], [address] Erythrocyte distribution width (RBC) [Ratio] 13.2 % Normal 11.6-14.6 [facility] Comment on above: Order Comment: 109.1 Performed By: #### L 100.0100 ####[facility] [address] [place], [address] Hematocrit (Bld) [Volume fraction] 40.1 % Normal 40-54 [facility] Comment on above: Order Comment: 109.1 Performed By: #### L 100.0100 ####[facility] [address] [place], [address] Hemoglobin (Bld) [Mass/Vol] 13.4 g/dL Normal 13.0-16.5 [facility] Comment on above: Order Comment: 109.1 Performed By: #### L 100.0100 ####[facility] [address] [place], [address] IG% 0.400 Normal 0.0-0.9 [facility] Comment on above: Order Comment: 109.1 Result Comment: IG% - Immature Granulocytes (promyelocytes, myelocytes andmetamyelocytes) > 1% indicates that a LEFT SHIFT is Present. Performed By: #### L 100.0100 ####[facility] [address] [place], [address] Lymphocytes/100 WBC (Bld) 22.9 % Normal 19-41 [facility] Comment on above: Order Comment: 109.1 Performed By: #### L 100.0100 ####[facility] [address] [place], [address] MCH (RBC) [Entitic mass] 29.9 pg Normal 27.0-32.0 [facility] Comment on above: Order Comment: 109.1 Performed By: #### L 100.0100 ####[facility] [address] [place], [address] MCHC (RBC) [Mass/Vol] 33.4 g/dL Normal 32-36 [facility] Comment on above: Order Comment: 109.1 Performed By: #### L 100.0100 ####[facility] [address] [place], [address] MCV (RBC) [Entitic vol] 89.5 fL Normal 80-94 [facility] Comment on above: Order Comment: 109.1 Performed By: #### L 100.0100 ####[facility] [address] [place], [address] Monocytes/100 WBC (Bld) 10.8 % High 0-10 [facility] Comment on above: Order Comment: 109.1 Performed By: #### L 100.0100 ####[facility] [address] [place], [address] Neutrophils/100 WBC (Bld) 64.6 % Normal 47-70 [facility] Comment on above: Order Comment: 109.1 Performed By: #### L 100.0100 ####[facility] [address] [place], [address] Nucleated RBC (Bld) [#/Vol] 0 10*3/uL Normal 0-5 [facility] Comment on above: Order Comment: 109.1 Performed By: #### L 100.0100 ####[facility] [address], [address] Platelet mean volume (Bld) [Entitic vol] 11.0 fL Normal 6.2-12.0 [facility] Comment on above: Order Comment: 109.1 Performed By: #### L 100.0100 ####[facility] [address], [address] Platelets (Bld) [#/Vol] 243 10*3/uL Normal 150-450 [facility] Comment on above: Order Comment: 109.1 Performed By: #### L 100.0100 ####[facility] [address] [place], [address] RBC (Bld) [#/Vol] 4.48 10*6/uL Low 4.6-6.2 [facility] Comment on above: Order Comment: 109.1 Performed By: #### L 100.0100 ####[facility] [address] [place], [address] RDW SD 43.0 fl Normal 35.1-43.9 [facility] Comment on above: Order Comment: 109.1 Performed By: #### L 100.0100 ####[facility] [address] [place], [address] WBC (Bld) [#/Vol] 9.3 10*3/uL Normal 4.4-11.0 [facility] Comment on above: Order Comment: 109.1 Performed By: #### L 100.0100 ####[facility] [address] [place], [address] Eosinophil percentageOrdered By: Renard Burgos on 02-03-2025 Eosinophils/100 WBC (Bld) 0.8 % 0-5 [facility] Erythrocyte distribution wid th ratioOrdered By: Renard Burgos on 02-03-2025 Erythrocyte distribution width (RBC) [Ratio] 13.2 % 11.6-14.6 [facility] Erythrocyte distribution wid th standard deviationOrdered By: Renard Burgos on 02-03-2025 Erythrocyte distribution width (RBC) [Ratio] 43.0 fl 35.1-43.9 [facility] Hematocrit Auto (Bld) [Volum e fraction]Ordered By: Renard Burgos on 02-03-2025 Hematocrit (Bld) [Volume fraction] 40.1 % 40-54 [facility] Hemoglobin measurementOrdere d By: Renard Burgos on 02-03-2025 Hemoglobin (Bld) [Mass/Vol] 13.4 g/dL 13.0-16.5 [facility] Immature granulocytes/100 WB C Auto (Bld)Ordered By: Renard Burgos on 02-03-2025 Immature granulocytes/100 WBC (Bld) 0.400 % 0.0-0.9 [facility] Comment on above: IG% - Immature Granu locytes (promyelocytes, myelocytes and metamyelocytes) > 1% indicates that a LEFT SHIFT is Present. MCV (mean corpuscular volume ) determinationOrdered By: Renard Burgos on 02-03-2025 MCV (RBC) [Entitic vol] 89.5 fL 80-94 [facility] Mean corpuscular hemoglobin (MCH) determinationOrdered By: Renard Burgos on 02-03-2025 MCH (RBC) [Entitic mass] 29.9 pg 27.0-32.0 [facility] Mean corpuscular hemoglobin concentration (MCHC) determinationOrdered By: Renard Burgos on 02-03-2025 MCHC (RBC) [Mass/Vol] 33.4 g/dL 32-36 [facility] Mean platelet volume determi nationOrdered By: Renard Burgos on 02-03-2025 Platelet mean volume (Bld) [Entitic vol] 11.0 fL 6.2-12.0 [facility] Monocyte percentageOrdered B y: Renard Burgos on 02-03-2025 Monocytes/100 WBC (Bld) 10.8 % High 0-10 [facility] Neutrophil percentageOrdered By: Renard Burgos on 02-03-2025 Neutrophils/100 WBC (Bld) 64.6 % 47-70 [facility] Nucleated red blood cell per centageOrdered By: Renard Burgos on 02-03-2025 Nucleated RBC/100 WBC (Bld) [Ratio] 0 % 0-5 [facility] Platelet countOrdered By: Garrick Bhatt on 02-03-2025 Platelets (Bld) [#/Vol] 243 10*3/uL 150-450 [facility] RBC Auto (Bld) [#/Vol]Ordere d By: Renard Burgso on 02-03-2025 RBC (Bld) [#/Vol] 4.48 10*6/uL Low 4.6-6.2 [facility] White blood cell (WBC) count Ordered By: Renard Burgos on 02-03-2025 WBC (Bld) [#/Vol] 9.3 10*3/uL 4.4-11.0 [facility] Absolute lymphocyte countOrd ered By: Renard Burgos on 01-27-2025 Lymphocytes Auto (Unsp spec) [#/Vol] 2.19 10*3/uL 0.83-4.51 [facility] Absolute neutrophil countOrd ered By: Renard Burgos on 01-27-2025 Neutrophils (Bld) [#/Vol] 6.3 10*3/uL 2.0-7.7 [facility] Automated lymphocyte count a s percentage of total leukocytesOrdered By: Renard Burgos on 01-27-2025 Lymphocytes/100 WBC Auto (Unsp spec) 23.7 % 19-41 [facility] Basophil percentageOrdered B y: Renard Burgos on 01-27-2025 Basophils/100 WBC (Bld) 0.3 % 0-1 [facility] CBC W/Diff, Automatedon 12-31 Absolute Lymph 2.19 X10 3/uL Normal 0.83-4.51 [facility] Comment on above: Order Comment: 109.1 Performed By: #### L 100.0100 ####[facility] [address] [place], [address] Absolute Neut 6.3 X10 3/uL Normal 2.0-7.7 [facility] Comment on above: Order Comment: 109.1 Performed By: #### L 100.0100 ####[facility] [address] [place], [address] Basophils/100 WBC (Bld) 0.3 % Normal 0-1 [facility] Comment on above: Order Comment: 109.1 Performed By: #### L 100.0100 ####[facility] [address] [place], [address] Eosinophils/100 WBC (Bld) 0.6 % Normal 0-5 [facility] Comment on above: Order Comment: 109.1 Performed By: #### L 100.0100 ####[facility] [address] [place], [address] Erythrocyte distribution width (RBC) [Ratio] 13.3 % Normal 11.6-14.6 [facility] Comment on above: Order Comment: 109.1 Performed By: #### L 100.0100 ####[facility] [address] [place], [address] Hematocrit (Bld) [Volume fraction] 38.2 % Low 40-54 [facility] Comment on above: Order Comment: 109.1 Performed By: #### L 100.0100 ####[facility] [address] [place], [address] Hemoglobin (Bld) [Mass/Vol] 12.9 g/dL Low 13.0-16.5 [facility] Comment on above: Order Comment: 109.1 Performed By: #### L 100.0100 ####[facility] [address] [place], [address] IG% 0.400 Normal 0.0-0.9 [facility] Comment on above: Order Comment: 109.1 Result Comment: IG% - Immature Granulocytes (promyelocytes, myelocytes andmetamyelocytes) > 1% indicates that a LEFT SHIFT is Present. Performed By: #### L 100.0100 ####[facility] [address] [place], [address] Lymphocytes/100 WBC (Bld) 23.7 % Normal 19-41 [facility] Comment on above: Order Comment: 109.1 Performed By: #### L 100.0100 ####[facility] [address] [place], [address] MCH (RBC) [Entitic mass] 30.2 pg Normal 27.0-32.0 [facility] Comment on above: Order Comment: 109.1 Performed By: #### L 100.0100 ####[facility] [address] [place], [address] MCHC (RBC) [Mass/Vol] 33.8 g/dL Normal 32-36 [facility] Comment on above: Order Comment: 109.1 Performed By: #### L 100.0100 ####[facility] [address] [place], [address] MCV (RBC) [Entitic vol] 89.5 fL Normal 80-94 [facility] Comment on above: Order Comment: 109.1 Performed By: #### L 100.0100 ####[facility] [address] [place], [address] Monocytes/100 WBC (Bld) 6.8 % Normal 0-10 [facility] Comment on above: Order Comment: 109.1 Performed By: #### L 100.0100 ####[facility] [address] [place], [address] Neutrophils/100 WBC (Bld) 68.2 % Normal 47-70 [facility] Comment on above: Order Comment: 109.1 Performed By: #### L 100.0100 ####[facility] [address] [place], [address] Nucleated RBC (Bld) [#/Vol] 0 10*3/uL Normal 0-5 [facility] Comment on above: Order Comment: 109.1 Performed By: #### L 100.0100 ####[facility] [address] [place], [address] Platelet mean volume (Bld) [Entitic vol] 10.6 fL Normal 6.2-12.0 [facility] Comment on above: Order Comment: 109.1 Performed By: #### L 100.0100 ####[facility] [address] [place], [address] Platelets (Bld) [#/Vol] 247 10*3/uL Normal 150-450 [facility] Comment on above: Order Comment: 109.1 Performed By: #### L 100.0100 ####[facility] [address] [place], [address] RBC (Bld) [#/Vol] 4.27 10*6/uL Low 4.6-6.2 [facility] Comment on above: Order Comment: 109.1 Performed By: #### L 100.0100 ####[facility] [address] [place], [address] RDW SD 43.2 fl Normal 35.1-43.9 [facility] Comment on above: Order Comment: 109.1 Performed By: #### L 100.0100 ####[facility] [address] [place], [address] WBC (Bld) [#/Vol] 9.3 10*3/uL Normal 4.4-11.0 [facility] Comment on above: Order Comment: 109.1 Performed By: #### L 100.0100 ####[facility] [address] [place], [address] Eosinophil percentageOrdered By: Renard Burgos on 01-27-2025 Eosinophils/100 WBC (Bld) 0.6 % 0-5 [facility] Erythrocyte distribution wid th ratioOrdered By: Renard Burgos on 01-27-2025 Erythrocyte distribution width (RBC) [Ratio] 13.3 % 11.6-14.6 [facility] Erythrocyte distribution wid th standard deviationOrdered By: Renard Burgos on 01-27-2025 Erythrocyte distribution width (RBC) [Ratio] 43.2 fl 35.1-43.9 [facility] Hematocrit Auto (Bld) [Volum e fraction]Ordered By: Renard Burgos on 01-27-2025 Hematocrit (Bld) [Volume fraction] 38.2 % Low 40-54 [facility] Hemoglobin measurementOrdere d By: Renard Burgos on 01-27-2025 Hemoglobin (Bld) [Mass/Vol] 12.9 g/dL Low 13.0-16.5 [facility] Immature granulocytes/100 WB C Auto (Bld)Ordered By: Renard Burgos on 01-27-2025 Immature granulocytes/100 WBC (Bld) 0.400 % 0.0-0.9 [facility] Comment on above: IG% - Immature Granu locytes (promyelocytes, myelocytes and metamyelocytes) > 1% indicates that a LEFT SHIFT is Present. MCV (mean corpuscular volume ) determinationOrdered By: Renard Burgos on 01-27-2025 MCV (RBC) [Entitic vol] 89.5 fL 80-94 [facility] Mean corpuscular hemoglobin (MCH) determinationOrdered By: Renard Burgos on 01-27-2025 MCH (RBC) [Entitic mass] 30.2 pg 27.0-32.0 [facility] Mean corpuscular hemoglobin concentration (MCHC) determinationOrdered By: Renard Burgos on 01-27-2025 MCHC (RBC) [Mass/Vol] 33.8 g/dL 32-36 [facility] Mean platelet volume determi nationOrdered By: Renard Burgos on 01-27-2025 Platelet mean volume (Bld) [Entitic vol] 10.6 fL 6.2-12.0 [facility] Monocyte percentageOrdered B y: Renard Burgos on 01-27-2025 Monocytes/100 WBC (Bld) 6.8 % 0-10 [facility] Neutrophil percentageOrdered By: Renard Burgos on 01-27-2025 Neutrophils/100 WBC (Bld) 68.2 % 47-70 [facility] Nucleated red blood cell per centageOrdered By: Renard Burgos on 01-27-2025 Nucleated RBC/100 WBC (Bld) [Ratio] 0 % 0-5 [facility] Platelet countOrdered By: Garrick Bhatt on 01-27-2025 Platelets (Bld) [#/Vol] 247 10*3/uL 150-450 [facility] RBC Auto (Bld) [#/Vol]Ordere d By: Renard Burgos on 01-27-2025 RBC (Bld) [#/Vol] 4.27 10*6/uL Low 4.6-6.2 [facility] White blood cell (WBC) count Ordered By: Renard Burgos on 01-27-2025 WBC (Bld) [#/Vol] 9.3 10*3/uL 4.4-11.0 [facility] Absolute lymphocyte countOrd ered By: Renard Burgos on 01-20-2025 Lymphocytes Auto (Unsp spec) [#/Vol] 2.11 10*3/uL 0.83-4.51 [facility] Absolute neutrophil countOrd ered By: Renard Burgos on 01-20-2025 Neutrophils (Bld) [#/Vol] 4.5 10*3/uL 2.0-7.7 [facility] Automated lymphocyte count a s percentage of total leukocytesOrdered By: Renard Hensleyrustam on 01-20-2025 Lymphocytes/100 WBC Auto (Unsp spec) 27.9 % 19-41 [facility] Basophil percentageOrdered B y: Renard Burgos on 01-20-2025 Basophils/100 WBC (Bld) 0.5 % 0-1 [facility] CBC W/Diff, Automatedon 12-31 Absolute Lymph 2.11 X10 3/uL Normal 0.83-4.51 [facility] Comment on above: Order Comment: 109.1 Performed By: #### L 100.0100 ####[facility] [address] [place], [address] Absolute Neut 4.5 X10 3/uL Normal 2.0-7.7 [facility] Comment on above: Order Comment: 109.1 Performed By: #### L 100.0100 ####[facility] [address] [place], [address] Basophils/100 WBC (Bld) 0.5 % Normal 0-1 [facility] Comment on above: Order Comment: 109.1 Performed By: #### L 100.0100 ####[facility] [address] [place], [address] Eosinophils/100 WBC (Bld) 1.1 % Normal 0-5 [facility] Comment on above: Order Comment: 109.1 Performed By: #### L 100.0100 ####[facility] [address] [place], [address] Erythrocyte distribution width (RBC) [Ratio] 13.1 % Normal 11.6-14.6 [facility] Comment on above: Order Comment: 109.1 Performed By: #### L 100.0100 ####[facility] [address] [place], [address] Hematocrit (Bld) [Volume fraction] 36.3 % Low 40-54 [facility] Comment on above: Order Comment: 109.1 Performed By: #### L 100.0100 ####[facility] [address] [place], [address] Hemoglobin (Bld) [Mass/Vol] 11.6 g/dL Low 13.0-16.5 [facility] Comment on above: Order Comment: 109.1 Performed By: #### L 100.0100 ####[facility] [address] [place], [address] IG% 0.700 Normal 0.0-0.9 [facility] Comment on above: Order Comment: 109.1 Result Comment: IG% - Immature Granulocytes (promyelocytes, myelocytes andmetamyelocytes) > 1% indicates that a LEFT SHIFT is Present. Performed By: #### L 100.0100 ####[facility] [address] [place], [address] Lymphocytes/100 WBC (Bld) 27.9 % Normal 19-41 [facility] Comment on above: Order Comment: 109.1 Performed By: #### L 100.0100 ####[facility] [address] [place], [address] MCH (RBC) [Entitic mass] 29.6 pg Normal 27.0-32.0 [facility] Comment on above: Order Comment: 109.1 Performed By: #### L 100.0100 ####[facility] [address] [place], [address] MCHC (RBC) [Mass/Vol] 32.0 g/dL Normal 32-36 [facility] Comment on above: Order Comment: 109.1 Performed By: #### L 100.0100 ####[facility] [address] [place], [address] MCV (RBC) [Entitic vol] 92.6 fL Normal 80-94 [facility] Comment on above: Order Comment: 109.1 Performed By: #### L 100.0100 ####[facility] [address] [place], [address] Monocytes/100 WBC (Bld) 10.1 % High 0-10 [facility] Comment on above: Order Comment: 109.1 Performed By: #### L 100.0100 ####[facility] [address] [place], [address] Neutrophils/100 WBC (Bld) 59.7 % Normal 47-70 [facility] Comment on above: Order Comment: 109.1 Performed By: #### L 100.0100 ####[facility] [address] [place], [address] Nucleated RBC (Bld) [#/Vol] 0 10*3/uL Normal 0-5 [facility] Comment on above: Order Comment: 109.1 Performed By: #### L 100.0100 ####[facility] [address] [place], [address] Platelet mean volume (Bld) [Entitic vol] 10.6 fL Normal 6.2-12.0 [facility] Comment on above: Order Comment: 109.1 Performed By: #### L 100.0100 ####[facility] [address] [place], [address] Platelets (Bld) [#/Vol] 248 10*3/uL Normal 150-450 [facility] Comment on above: Order Comment: 109.1 Performed By: #### L 100.0100 ####[facility] [address] [place], [address] RBC (Bld) [#/Vol] 3.92 10*6/uL Low 4.6-6.2 [facility] Comment on above: Order Comment: 109.1 Performed By: #### L 100.0100 ####[facility] [address] [place], [address] RDW SD 44.6 fl High 35.1-43.9 [facility] Comment on above: Order Comment: 109.1 Performed By: #### L 100.0100 ####[facility] [address] [place], [address] WBC (Bld) [#/Vol] 7.6 10*3/uL Normal 4.4-11.0 [facility] Comment on above: Order Comment: 109.1 Performed By: #### L 100.0100 ####[facility] [address] [facility] [place], [address] Eosinophil percentageOrdered By: Renard Burgos on 01-20-2025 Eosinophils/100 WBC (Bld) 1.1 % 0-5 [facility] Erythrocyte distribution wid th ratioOrdered By: Renard Burgos on 01-20-2025 Erythrocyte distribution width (RBC) [Ratio] 13.1 % 11.6-14.6 [facility] Erythrocyte distribution wid th standard deviationOrdered By: Renard Burgos on 01-20-2025 Erythrocyte distribution width (RBC) [Ratio] 44.6 fl High 35.1-43.9 [facility] Hematocrit Auto (Bld) [Volum e fraction]Ordered By: Renard Burgos on 01-20-2025 Hematocrit (Bld) [Volume fraction] 36.3 % Low 40-54 [facility] Hemoglobin measurementOrdere d By: Renard Burgos on 01-20-2025 Hemoglobin (Bld) [Mass/Vol] 11.6 g/dL Low 13.0-16.5 [facility] Immature granulocytes/100 WB C Auto (Bld)Ordered By: Renard Burgos on 01-20-2025 Immature granulocytes/100 WBC (Bld) 0.700 % 0.0-0.9 [facility] Comment on above: IG% - Immature Granu locytes (promyelocytes, myelocytes and metamyelocytes) > 1% indicates that a LEFT SHIFT is Present. MCV (mean corpuscular volume ) determinationOrdered By: Renard Burgos on 01-20-2025 MCV (RBC) [Entitic vol] 92.6 fL 80-94 [facility] Mean corpuscular hemoglobin (MCH) determinationOrdered By: Renard Burgos on 01-20-2025 MCH (RBC) [Entitic mass] 29.6 pg 27.0-32.0 [facility] Mean corpuscular hemoglobin concentration (MCHC) determinationOrdered By: Renard Burgos on 01-20-2025 MCHC (RBC) [Mass/Vol] 32.0 g/dL 32-36 [facility] Mean platelet volume determi nationOrdered By: Renard Burgos on 01-20-2025 Platelet mean volume (Bld) [Entitic vol] 10.6 fL 6.2-12.0 [facility] Monocyte percentageOrdered B y: Renard Burgos on 01-20-2025 Monocytes/100 WBC (Bld) 10.1 % High 0-10 [facility] Neutrophil percentageOrdered By: Renard Burgos on 01-20-2025 Neutrophils/100 WBC (Bld) 59.7 % 47-70 [facility] Nucleated red blood cell per centageOrdered By: Renard Burgos on 01-20-2025 Nucleated RBC/100 WBC (Bld) [Ratio] 0 % 0-5 [facility] Platelet countOrdered By: Garrick Bhatt on 01-20-2025 Platelets (Bld) [#/Vol] 248 10*3/uL 150-450 [facility] RBC Auto (Bld) [#/Vol]Ordere d By: Renard Burgos on 01-20-2025 RBC (Bld) [#/Vol] 3.92 10*6/uL Low 4.6-6.2 [facility] White blood cell (WBC) count Ordered By: Renard Burgos on 01-20-2025 WBC (Bld) [#/Vol] 7.6 10*3/uL 4.4-11.0 [facility] Absolute lymphocyte countOrd ered By: Renard Burgos on 01-13-2025 Lymphocytes Auto (Unsp spec) [#/Vol] 1.91 10*3/uL 0.83-4.51 [facility] Absolute neutrophil countOrd ered By: Renard Burgos on 01-13-2025 Neutrophils (Bld) [#/Vol] 6.4 10*3/uL 2.0-7.7 [facility] Automated lymphocyte count a s percentage of total leukocytesOrdered By: Renard Burgos on 01-13-2025 Lymphocytes/100 WBC Auto (Unsp spec) 20.7 % 19-41 [facility] Basophil percentageOrdered B y: Renard Burgos on 01-13-2025 Basophils/100 WBC (Bld) 0.5 % 0-1 [facility] CBC W/Diff, Automatedon 12-30 Absolute Lymph 1.91 X10 3/uL Normal 0.83-4.51 [facility] Comment on above: Order Comment: 109-1 Performed By: #### L 100.0100 ####[facility] [address] [place], [address] Absolute Neut 6.4 X10 3/uL Normal 2.0-7.7 [facility] Comment on above: Order Comment: 109-1 Performed By: #### L 100.0100 ####[facility] [address] [place], [address] Basophils/100 WBC (Bld) 0.5 % Normal 0-1 [facility] Comment on above: Order Comment: 109-1 Performed By: #### L 100.0100 ####[facility] [address] [place], [address] Eosinophils/100 WBC (Bld) 0.8 % Normal 0-5 [facility] Comment on above: Order Comment: 109-1 Performed By: #### L 100.0100 ####[facility] [address] [place], [address] Erythrocyte distribution width (RBC) [Ratio] 13.2 % Normal 11.6-14.6 [facility] Comment on above: Order Comment: 109-1 Performed By: #### L 100.0100 ####[facility] [address] [place], [address] Hematocrit (Bld) [Volume fraction] 40.2 % Normal 40-54 [facility] Comment on above: Order Comment: 109-1 Performed By: #### L 100.0100 ####[facility] [address] [place], [address] Hemoglobin (Bld) [Mass/Vol] 13.3 g/dL Normal 13.0-16.5 [facility] Comment on above: Order Comment: 109-1 Performed By: #### L 100.0100 ####[facility] [address] [place], [address] IG% 0.300 Normal 0.0-0.9 [facility] Comment on above: Order Comment: 109-1 Result Comment: IG% - Immature Granulocytes (promyelocytes, myelocytes andmetamyelocytes) > 1% indicates that a LEFT SHIFT is Present. Performed By: #### L 100.0100 ####[facility] [address] [place], [address] Lymphocytes/100 WBC (Bld) 20.7 % Normal 19-41 [facility] Comment on above: Order Comment: 109-1 Performed By: #### L 100.0100 ####[facility] [address] [place], [address] MCH (RBC) [Entitic mass] 30.4 pg Normal 27.0-32.0 [facility] Comment on above: Order Comment: 109-1 Performed By: #### L 100.0100 ####[facility] [address] [place], [address] MCHC (RBC) [Mass/Vol] 33.1 g/dL Normal 32-36 [facility] Comment on above: Order Comment: 109-1 Performed By: #### L 100.0100 ####[facility] [address] [place], [address] MCV (RBC) [Entitic vol] 92.0 fL Normal 80-94 [facility] Comment on above: Order Comment: 109-1 Performed By: #### L 100.0100 ####[facility] [address] [place], [address] Monocytes/100 WBC (Bld) 8.1 % Normal 0-10 [facility] Comment on above: Order Comment: 109-1 Performed By: #### L 100.0100 ####[facility] [address] [place], [address] Neutrophils/100 WBC (Bld) 69.6 % Normal 47-70 [facility] Comment on above: Order Comment: 109-1 Performed By: #### L 100.0100 ####[facility] [address] [place], [address] Nucleated RBC (Bld) [#/Vol] 0 10*3/uL Normal 0-5 [facility] Comment on above: Order Comment: 109-1 Performed By: #### L 100.0100 ####[facility] [address] [place], [address] Platelet mean volume (Bld) [Entitic vol] 11.5 fL Normal 6.2-12.0 [facility] Comment on above: Order Comment: 109-1 Performed By: #### L 100.0100 ####[facility] [address] [place], [address] Platelets (Bld) [#/Vol] 198 10*3/uL Normal 150-450 [facility] Comment on above: Order Comment: 109-1 Performed By: #### L 100.0100 ####[facility] [address] [place], [address] RBC (Bld) [#/Vol] 4.37 10*6/uL Low 4.6-6.2 [facility] Comment on above: Order Comment: 109-1 Performed By: #### L 100.0100 ####[facility] [address] [place], [address] RDW SD 44.6 fl High 35.1-43.9 [facility] Comment on above: Order Comment: 109-1 Performed By: #### L 100.0100 ####[facility] [address] [place], [address] WBC (Bld) [#/Vol] 9.2 10*3/uL Normal 4.4-11.0 [facility] Comment on above: Order Comment: 109-1 Performed By: #### L 100.0100 ####[facility] [address] [place], [address] Eosinophil percentageOrdered By: Renard Burgos on 01-13-2025 Eosinophils/100 WBC (Bld) 0.8 % 0-5 [facility] Erythrocyte distribution wid th ratioOrdered By: Renard Burgos on 01-13-2025 Erythrocyte distribution width (RBC) [Ratio] 13.2 % 11.6-14.6 [facility] Erythrocyte distribution wid th standard deviationOrdered By: Renard Burgos on 01-13-2025 Erythrocyte distribution width (RBC) [Ratio] 44.6 fl High 35.1-43.9 [facility] Hematocrit Auto (Bld) [Volum e fraction]Ordered By: Renard Burgos on 01-13-2025 Hematocrit (Bld) [Volume fraction] 40.2 % 40-54 [facility] Hemoglobin measurementOrdere d By: Renard Burgos on 01-13-2025 Hemoglobin (Bld) [Mass/Vol] 13.3 g/dL 13.0-16.5 [facility] Immature granulocytes/100 WB C Auto (Bld)Ordered By: Renard Burgos on 01-13-2025 Immature granulocytes/100 WBC (Bld) 0.300 % 0.0-0.9 [facility] Comment on above: IG% - Immature Granu locytes (promyelocytes, myelocytes and metamyelocytes) > 1% indicates that a LEFT SHIFT is Present. MCV (mean corpuscular volume ) determinationOrdered By: Renard Burgos on 01-13-2025 MCV (RBC) [Entitic vol] 92.0 fL 80-94 [facility] Mean corpuscular hemoglobin (MCH) determinationOrdered By: Renard Burgos on 01-13-2025 MCH (RBC) [Entitic mass] 30.4 pg 27.0-32.0 [facility] Mean corpuscular hemoglobin concentration (MCHC) determinationOrdered By: Renard Burgos on 01-13-2025 MCHC (RBC) [Mass/Vol] 33.1 g/dL 32-36 [facility] Mean platelet volume determi nationOrdered By: Renard Burgos on 01-13-2025 Platelet mean volume (Bld) [Entitic vol] 11.5 fL 6.2-12.0 [facility] Monocyte percentageOrdered B y: Renard Burgos on 01-13-2025 Monocytes/100 WBC (Bld) 8.1 % 0-10 [facility] Neutrophil percentageOrdered By: Renard Burgos on 01-13-2025 Neutrophils/100 WBC (Bld) 69.6 % 47-70 [facility] Nucleated red blood cell per centageOrdered By: Renard Burgos on 01-13-2025 Nucleated RBC/100 WBC (Bld) [Ratio] 0 % 0-5 [facility] Platelet countOrdered By: Garrick Bhatt on 01-13-2025 Platelets (Bld) [#/Vol] 198 10*3/uL 150-450 [facility] RBC Auto (Bld) [#/Vol]Ordere d By: Renard Burgos on 01-13-2025 RBC (Bld) [#/Vol] 4.37 10*6/uL Low 4.6-6.2 [facility] White blood cell (WBC) count Ordered By: Renard Burgos on 01-13-2025 WBC (Bld) [#/Vol] 9.2 10*3/uL 4.4-11.0 [facility] Anion gap in Serum or Plasma Ordered By: Renard Burgos on 01-10-2025 Anion gap [Moles/Vol] 9 mmol/L 5-15 [facility] BUN/creatinine ratioOrdered By: Renard Burgos on 01-10-2025 Urea nitrogen/Creatinine [Mass ratio] 27.7 mg/mg High - [facility] Basic Metabolic Profile (BMP )on 01-10-2025 BUN/CRE 27.7 RATIO High - [facility] Comment on above: Order Comment: 109.1 Performed By: #### L 500.2500 ####[facility] [address] [place], [address] Calcium [Mass/Vol] 8.2 mg/dL Normal 7.6-11.0 [facility] Comment on above: Order Comment: 109.1 Performed By: #### L 500.2500 ####[facility] [address] [place], [address] Chloride [Moles/Vol] 106 mmol/L Normal 98-108 [facility] Comment on above: Order Comment: 109.1 Performed By: #### L 500.2500 ####[facility] [address] [place], [address] CO2 [Moles/Vol] 25.6 mmol/L Normal 21.0-32.0 [facility] Comment on above: Order Comment: 109.1 Performed By: #### L 500.2500 ####[facility] [address] [place], [address] Creatinine [Mass/Vol] 0.54 mg/dL Low 0.70-1.20 [facility] Comment on above: Order Comment: 109.1 Performed By: #### L 500.2500 ####[facility] [address] [place], [address] GAP 9 Normal 5-15 [facility] Comment on above: Order Comment: 109.1 Performed By: #### L 500.2500 ####[facility] [address] [place], [address] GFR/1.73 sq M.predicted among non-blacks MDRD (S/P/Bld) [Vol rate/Area] 109 mL/min/{1.73_m2} Normal >60 [facility] Comment on above: Order Comment: 109.1 Result Comment: mL/m in/1.73m2 CKD-EPI Creatinine Equation (2020) Performed By: #### L 500.2500 ####[facility] [address] [place], [address] Glucose [Mass/Vol] 126 mg/dL High 70-99 [facility] Comment on above: Order Comment: 109.1 Performed By: #### L 500.2500 ####[facility] [address] [place], [address] Potassium [Moles/Vol] 3.8 mmol/L Normal 3.3-5.1 [facility] Comment on above: Order Comment: 109.1 Performed By: #### L 500.2500 ####[facility] [address] [place], [address] Sodium [Moles/Vol] 140 mmol/L Normal 133-145 [facility] Comment on above: Order Comment: 109.1 Performed By: #### L 500.2500 ####[facility] [address] [place], [address] Urea nitrogen [Mass/Vol] 15 mg/dL Normal 4-19 [facility] Comment on above: Order Comment: 109.1 Performed By: #### L 500.2500 ####[facility] [address] [place], [address] Carbon dioxide, total [Moles /volume] in Central venous bloodOrdered By: Renard Burgos on 01-10-2025 CO2 [Moles/Vol] 25.6 mmol/L 21.0-32.0 [facility] Chloride assayOrdered By: Garrick Bhatt on 01-10-2025 Chloride [Moles/Vol] 106 mmol/L 98-108 [facility] Glomerular filtration rate ( GFR) estimation/1.73 sq m using serum, plasma, or whole bOrdered By: Renard Burgos on 01-10-2025 GFR/1.73 sq M.predicted among non-blacks MDRD (S/P/Bld) [Vol rate/Area] 109 mL/min/{1.73_m2} >60 [facility] Comment on above: mL/min/1.73m2 CKD-EP I Creatinine Equation (2020) Potassium measurement (mass/ volume)Ordered By: Renard Burgos on 01-10-2025 Potassium (Unsp spec) [Mass/Vol] 3.8 mmol/L 3.3-5.1 [facility] Serum creatinine measurement (mass/volume)Ordered By: Renard Burgos on 01-10-2025 Creatinine [Mass/Vol] 0.54 mg/dL Low 0.70-1.20 [facility] Serum glucose measurement (m ass/volume)Ordered By: Renard Burgos on 01-10-2025 Glucose [Mass/Vol] 126 mg/dL High 70-99 [facility] Serum or plasma calcium gordy urement (mass/volume)Ordered By: Renard Burgos on 01-10-2025 Calcium [Mass/Vol] 8.2 mg/dL 7.6-11.0 [facility] Serum or plasma urea nitroge n measurement (mass/volume)Ordered By: Renard Burgos on 01-10-2025 Urea nitrogen [Mass/Vol] 15 mg/dL 4-19 [facility] Sodium levelOrdered By: Lamine Burgos on 01-10-2025 Sodium [Moles/Vol] 140 mmol/L 133-145 [facility] Absolute lymphocyte countOrd ered By: Renard Burgos on 01-06-2025 Lymphocytes Auto (Unsp spec) [#/Vol] 2.29 10*3/uL 0.83-4.51 [facility] Absolute neutrophil countOrd ered By: Renard Burgos on 01-06-2025 Neutrophils (Bld) [#/Vol] 5.6 10*3/uL 2.0-7.7 [facility] Automated lymphocyte count a s percentage of total leukocytesOrdered By: Renard Burgos on 01-06-2025 Lymphocytes/100 WBC Auto (Unsp spec) 26.1 % 19-41 [facility] Basophil percentageOrdered B y: Renard Burgos on 01-06-2025 Basophils/100 WBC (Bld) 0.6 % 0-1 [facility] CBC W/Diff, Automatedon PLT EST ADEQUATE Normal ADEQ [facility] Comment on above: Order Comment: 109.1 Performed By: #### L 100.0100 ####[facility] [address] [place], [address] Eosinophil percentageOrdered By: Renard Burgos on 01-06-2025 Eosinophils/100 WBC (Bld) 1.1 % 0-5 [facility] Erythrocyte distribution wid th ratioOrdered By: Renard Burgos on 01-06-2025 Erythrocyte distribution width (RBC) [Ratio] 13.2 % 11.6-14.6 [facility] Erythrocyte distribution wid th standard deviationOrdered By: Renard Burgos on 01-06-2025 Erythrocyte distribution width (RBC) [Ratio] 44.2 fl High 35.1-43.9 [facility] Hematocrit Auto (Bld) [Volum e fraction]Ordered By: Renard Burgos on 01-06-2025 Hematocrit (Bld) [Volume fraction] 43.3 % 40-54 [facility] Hemoglobin measurementOrdere d By: Renard Burgos on 01-06-2025 Hemoglobin (Bld) [Mass/Vol] 14.2 g/dL 13.0-16.5 [facility] Immature granulocytes/100 WB C Auto (Bld)Ordered By: Renard Burgos on 01-06-2025 Immature granulocytes/100 WBC (Bld) 0.300 % 0.0-0.9 [facility] Comment on above: IG% - Immature Granu locytes (promyelocytes, myelocytes and metamyelocytes) > 1% indicates that a LEFT SHIFT is Present. MCV (mean corpuscular volume ) determinationOrdered By: Renard Burgos on 01-06-2025 MCV (RBC) [Entitic vol] 92.7 fL 80-94 [facility] Mean corpuscular hemoglobin (MCH) determinationOrdered By: Renard Burgos on 01-06-2025 MCH (RBC) [Entitic mass] 30.4 pg 27.0-32.0 [facility] Mean corpuscular hemoglobin concentration (MCHC) determinationOrdered By: Renard Burgos on 01-06-2025 MCHC (RBC) [Mass/Vol] 32.8 g/dL 32-36 [facility] Mean platelet volume determi nationOrdered By: Renard Burgos on 01-06-2025 Platelet mean volume (Bld) [Entitic vol] 11.5 fL 6.2-12.0 [facility] Monocyte percentageOrdered B y: Renard Burgos on 01-06-2025 Monocytes/100 WBC (Bld) 8.5 % 0-10 [facility] Neutrophil percentageOrdered By: Renard Burgos on 01-06-2025 Neutrophils/100 WBC (Bld) 63.4 % 47-70 [facility] Nucleated red blood cell per centageOrdered By: Renard Burgos on 01-06-2025 Nucleated RBC/100 WBC (Bld) [Ratio] 0 % 0-5 [facility] Platelet countOrdered By: Garrick Bhatt on 01-06-2025 Platelets (Bld) [#/Vol] 197 10*3/uL 150-450 [facility] Platelet estimateOrdered By: Renard Burgos on 01-06-2025 Platelets LM Ql (Bld) ADEQUATE ADEQ [facility] RBC Auto (Bld) [#/Vol]Ordere d By: Renard Burgos on 01-06-2025 RBC (Bld) [#/Vol] 4.67 10*6/uL 4.6-6.2 [facility] White blood cell (WBC) count Ordered By: Renard Burgos on 01-06-2025 WBC (Bld) [#/Vol] 8.8 10*3/uL 4.4-11.0 [facility] Absolute lymphocyte countOrd ered By: Renard Burgos on 12-31-2024 Lymphocytes Auto (Unsp spec) [#/Vol] 1.87 10*3/uL 0.83-4.51 [facility] Absolute neutrophil countOrd ered By: Renard Burgos on 12-31-2024 Neutrophils (Bld) [#/Vol] 5.3 10*3/uL 2.0-7.7 [facility] Automated blood erythrocyte countOrdered By: Renard Burgos on 12-31-2024 RBC (Bld) [#/Vol] 4.47 10*6/uL Low 4.6-6.2 [facility] Comment on above: Order Comment: 109.1 Performed By: #### L 100.0100 ####[facility] [address] [place], [place], [address] Automated blood hematocrit ( percentage)Ordered By: Renard Burgos on 12-31-2024 Hematocrit (Bld) [Volume fraction] 41.3 % Normal 40-54 [facility] Comment on above: Order Comment: 109.1 Performed By: #### L 100.0100 ####[facility] [address] [place], [address] Automated lymphocyte count a s percentage of total leukocytesOrdered By: Renard Burgos on 12-31-2024 Lymphocytes/100 WBC Auto (Unsp spec) 23.4 % 19-41 [facility] Basophil percentageOrdered B y: Renard Burgos on 12-31-2024 Basophils/100 WBC (Bld) 0.4 % Normal 0-1 [facility] Comment on above: Order Comment: 109.1 Performed By: #### L 100.0100 ####[facility] [address] [place], [address] CBC W/Diff, Automatedon - Absolute Lymph 1.87 X10 3/uL Normal 0.83-4.51 [facility] Comment on above: Order Comment: 109.1 Performed By: #### L 100.0100 ####[facility] [address] [place], [address] Absolute Neut 5.3 X10 3/uL Normal 2.0-7.7 [facility] Comment on above: Order Comment: 109.1 Performed By: #### L 100.0100 ####[facility] [address] [place], [address] IG% 0.400 Normal 0.0-0.9 [facility] Comment on above: Order Comment: 109.1 Result Comment: IG% - Immature Granulocytes (promyelocytes, myelocytes andmetamyelocytes) > 1% indicates that a LEFT SHIFT is Present. Performed By: #### L 100.0100 ####[facility] [facility] [address] [place], [address] Lymphocytes/100 WBC (Bld) 23.4 % Normal 19-41 [facility] Comment on above: Order Comment: 109.1 Performed By: #### L 100.0100 ####[facility] [address] [place], [address] Nucleated RBC (Bld) [#/Vol] 0 10*3/uL Normal 0-5 [facility] Comment on above: Order Comment: 109.1 Performed By: #### L 100.0100 ####[facility] [address] [place], [address] RDW SD 43.8 fl Normal 35.1-43.9 [facility] Comment on above: Order Comment: 109.1 Performed By: #### L 100.0100 ####[facility] [address] [place], [address] Eosinophil percentageOrdered By: Renard Burgos on 12-31-2024 Eosinophils/100 WBC (Bld) 0.6 % Normal 0-5 [facility] Comment on above: Order Comment: 109.1 Performed By: #### L 100.0100 ####[facility] [address] [place], [address] Erythrocyte distribution wid th ratioOrdered By: Renard Burgos on 12-31-2024 Erythrocyte distribution width (RBC) [Ratio] 13.1 % Normal 11.6-14.6 [facility] Comment on above: Order Comment: 109.1 Performed By: #### L 100.0100 ####[facility] [address] [place], [place], [id number] Erythrocyte distribution wid th standard deviationOrdered By: Renard Burgos on 12-31-2024 Erythrocyte distribution width (RBC) [Ratio] 43.8 fl 35.1-43.9 [facility] Hemoglobin measurementOrdere d By: Renard Burgos on 12-31-2024 Hemoglobin (Bld) [Mass/Vol] 13.4 g/dL Normal 13.0-16.5 [facility] Comment on above: Order Comment: 109.1 Performed By: #### L 100.0100 ####[facility] [address] [place], [address] Immature granulocytes/100 WB C Auto (Bld)Ordered By: Renard Burgos on 12-31-2024 Immature granulocytes/100 WBC (Bld) 0.400 % 0.0-0.9 [facility] Comment on above: IG% - Immature Granu locytes (promyelocytes, myelocytes and metamyelocytes) > 1% indicates that a LEFT SHIFT is Present. MCV (mean corpuscular volume ) determinationOrdered By: Renard Burgos on 12-31-2024 MCV (RBC) [Entitic vol] 92.4 fL Normal 80-94 [facility] Comment on above: Order Comment: 109.1 Performed By: #### L 100.0100 ####[facility] [address] [place], [place], [address] Mean corpuscular hemoglobin (MCH) determinationOrdered By: Renard Burgos on 12-31-2024 MCH (RBC) [Entitic mass] 30.0 pg Normal 27.0-32.0 [facility] Comment on above: Order Comment: 109.1 Performed By: #### L 100.0100 ####[facility] [address] [place], [place], [address] Mean corpuscular hemoglobin concentration (MCHC) determinationOrdered By: Renard Burgos on 12-31-2024 MCHC (RBC) [Mass/Vol] 32.4 g/dL Normal 32-36 [facility] Comment on above: Order Comment: 109.1 Performed By: #### L 100.0100 ####[facility] [address] [place], [address] Mean platelet volume determi nationOrdered By: Renard Burgos on 12-31-2024 Platelet mean volume (Bld) [Entitic vol] 10.9 fL Normal 6.2-12.0 [facility] Comment on above: Order Comment: 109.1 Performed By: #### L 100.0100 ####[facility] [address] [place], [address] Monocyte percentageOrdered B y: Renard Burgos on 12-31-2024 Monocytes/100 WBC (Bld) 9.0 % Normal 0-10 [facility] Comment on above: Order Comment: 109.1 Performed By: #### L 100.0100 ####[facility] [address] [place], [address] Neutrophil percentageOrdered By: Renard Burgos on 12-31-2024 Neutrophils/100 WBC (Bld) 66.2 % Normal 47-70 [facility] Comment on above: Order Comment: 109.1 Performed By: #### L 100.0100 ####[facility] [address] [place], [address] Nucleated red blood cell per centageOrdered By: Renard Burgos on 12-31-2024 Nucleated RBC/100 WBC (Bld) [Ratio] 0 % 0-5 [facility] Platelet countOrdered By: Garrick Bhatt on 12-31-2024 Platelets (Bld) [#/Vol] 209 10*3/uL Normal 150-450 [facility] Comment on above: Order Comment: 109.1 Performed By: #### L 100.0100 ####[facility] [address] [place], [address] White blood cell (WBC) count Ordered By: Renard Burgos on 12-31-2024 WBC (Bld) [#/Vol] 8.0 10*3/uL Normal 4.4-11.0 [facility] Comment on above: Order Comment: 109.1 Performed By: #### L 100.0100 ####[facility] [address] [place], [address] Absolute lymphocyte countOrd ered By: Renard Burgos on 12-23-2024 Lymphocytes Auto (Unsp spec) [#/Vol] 1.98 10*3/uL 0.83-4.51 [facility] Absolute neutrophil countOrd ered By: Renard Burgos on 12-23-2024 Neutrophils (Bld) [#/Vol] 4.2 10*3/uL 2.0-7.7 [facility] Automated lymphocyte count a s percentage of total leukocytesOrdered By: Renard Burgos on 12-23-2024 Lymphocytes/100 WBC Auto (Unsp spec) 28.9 % 19-41 [facility] Basophil percentageOrdered B y: Renard Burgos on 12-23-2024 Basophils/100 WBC (Bld) 0.6 % 0-1 [facility] CBC W/Diff, Automatedon 11-30 Absolute Lymph 1.98 X10 3/uL Normal 0.83-4.51 [facility] Comment on above: Order Comment: 109-1 Performed By: #### L 100.0100 ####[facility] [address] [place], [address] Absolute Neut 4.2 X10 3/uL Normal 2.0-7.7 [facility] Comment on above: Order Comment: 109-1 Performed By: #### L 100.0100 ####[facility] [address] [place], [address] Basophils/100 WBC (Bld) 0.6 % Normal 0-1 [facility] Comment on above: Order Comment: 109-1 Performed By: #### L 100.0100 ####[facility] [address] [place], [address] Eosinophils/100 WBC (Bld) 0.9 % Normal 0-5 [facility] Comment on above: Order Comment: 109-1 Performed By: #### L 100.0100 ####[facility] [address] [place], [address] Erythrocyte distribution width (RBC) [Ratio] 13.0 % Normal 11.6-14.6 [facility] Comment on above: Order Comment: 109-1 Performed By: #### L 100.0100 ####[facility] [address] [place], [address] Hematocrit (Bld) [Volume fraction] 39.9 % Low 40-54 [facility] Comment on above: Order Comment: 109-1 Performed By: #### L 100.0100 ####[facility] [address] [place], [address] Hemoglobin (Bld) [Mass/Vol] 13.4 g/dL Normal 13.0-16.5 [facility] Comment on above: Order Comment: 109-1 Performed By: #### L 100.0100 ####[facility] [address] [place], [address] IG% 0.300 Normal 0.0-0.9 [facility] Comment on above: Order Comment: 109-1 Result Comment: IG% - Immature Granulocytes (promyelocytes, myelocytes andmetamyelocytes) > 1% indicates that a LEFT SHIFT is Present. Performed By: #### L 100.0100 ####[facility] [address] [place], [address] Lymphocytes/100 WBC (Bld) 28.9 % Normal 19-41 [facility] Comment on above: Order Comment: 109-1 Performed By: #### L 100.0100 ####[facility] [address] [place], [address] MCH (RBC) [Entitic mass] 30.9 pg Normal 27.0-32.0 [facility] Comment on above: Order Comment: 109-1 Performed By: #### L 100.0100 ####[facility] [address] [place], [address] MCHC (RBC) [Mass/Vol] 33.6 g/dL Normal 32-36 [facility] Comment on above: Order Comment: 109-1 Performed By: #### L 100.0100 ####[facility] [address] [place], [address] MCV (RBC) [Entitic vol] 91.9 fL Normal 80-94 [facility] Comment on above: Order Comment: 109-1 Performed By: #### L 100.0100 ####[facility] [address] [place], [address] Monocytes/100 WBC (Bld) 8.0 % Normal 0-10 [facility] Comment on above: Order Comment: 109-1 Performed By: #### L 100.0100 ####[facility] [address] [place], [address] Neutrophils/100 WBC (Bld) 61.3 % Normal 47-70 [facility] Comment on above: Order Comment: 109-1 Performed By: #### L 100.0100 ####[facility] [address] [place], [address] Nucleated RBC (Bld) [#/Vol] 0 10*3/uL Normal 0-5 [facility] Comment on above: Order Comment: 109-1 Performed By: #### L 100.0100 ####[facility] [address] [place], [address] Platelet mean volume (Bld) [Entitic vol] 11.7 fL Normal 6.2-12.0 [facility] Comment on above: Order Comment: 109-1 Performed By: #### L 100.0100 ####[facility] [address] [place], [address] Platelets (Bld) [#/Vol] 201 10*3/uL Normal 150-450 [facility] Comment on above: Order Comment: 109-1 Performed By: #### L 100.0100 ####[facility] [address] [place], [address] RBC (Bld) [#/Vol] 4.34 10*6/uL Low 4.6-6.2 [facility] Comment on above: Order Comment: 109-1 Performed By: #### L 100.0100 ####[facility] [address] [place], [address] RDW SD 43.4 fl Normal 35.1-43.9 [facility] Comment on above: Order Comment: 109-1 Performed By: #### L 100.0100 ####[facility] [address] [place], [address] WBC (Bld) [#/Vol] 6.8 10*3/uL Normal 4.4-11.0 [facility] Comment on above: Order Comment: 109-1 Performed By: #### L 100.0100 ####[facility] [address] [place], [address] Eosinophil percentageOrdered By: Renard Burgos on 12-23-2024 Eosinophils/100 WBC (Bld) 0.9 % 0-5 [facility] Erythrocyte distribution wid th ratioOrdered By: Renard Burgos on 12-23-2024 Erythrocyte distribution width (RBC) [Ratio] 13.0 % 11.6-14.6 [facility] Erythrocyte distribution wid th standard deviationOrdered By: Renard Burgos on 12-23-2024 Erythrocyte distribution width (RBC) [Ratio] 43.4 fl 35.1-43.9 [facility] Hematocrit Auto (Bld) [Volum e fraction]Ordered By: Renard Burgos on 12-23-2024 Hematocrit (Bld) [Volume fraction] 39.9 % Low 40-54 [facility] Hemoglobin measurementOrdere d By: Renard Burgos on 12-23-2024 Hemoglobin (Bld) [Mass/Vol] 13.4 g/dL 13.0-16.5 [facility] Immature granulocytes/100 WB C Auto (Bld)Ordered By: Renard Burgos on 12-23-2024 Immature granulocytes/100 WBC (Bld) 0.300 % 0.0-0.9 [facility] Comment on above: IG% - Immature Granu locytes (promyelocytes, myelocytes and metamyelocytes) > 1% indicates that a LEFT SHIFT is Present. MCV (mean corpuscular volume ) determinationOrdered By: Renard Burgos on 12-23-2024 MCV (RBC) [Entitic vol] 91.9 fL 80-94 [facility] Mean corpuscular hemoglobin (MCH) determinationOrdered By: Renard Burgos on 12-23-2024 MCH (RBC) [Entitic mass] 30.9 pg 27.0-32.0 [facility] Mean corpuscular hemoglobin concentration (MCHC) determinationOrdered By: Renard Burgos on 12-23-2024 MCHC (RBC) [Mass/Vol] 33.6 g/dL 32-36 [facility] Mean platelet volume determi nationOrdered By: Renard Burgos on 12-23-2024 Platelet mean volume (Bld) [Entitic vol] 11.7 fL 6.2-12.0 [facility] Monocyte percentageOrdered B y: Renard Burgos on 12-23-2024 Monocytes/100 WBC (Bld) 8.0 % 0-10 [facility] Neutrophil percentageOrdered By: Renard Burgos on 12-23-2024 Neutrophils/100 WBC (Bld) 61.3 % 47-70 [facility] Nucleated red blood cell per centageOrdered By: Renard Burgos on 12-23-2024 Nucleated RBC/100 WBC (Bld) [Ratio] 0 % 0-5 [facility] Platelet countOrdered By: Garrick Bhatt on 12-23-2024 Platelets (Bld) [#/Vol] 201 10*3/uL 150-450 [facility] RBC Auto (Bld) [#/Vol]Ordere d By: Renard Brugos on 12-23-2024 RBC (Bld) [#/Vol] 4.34 10*6/uL Low 4.6-6.2 [facility] White blood cell (WBC) count Ordered By: Renard Burgos on 12-23-2024 WBC (Bld) [#/Vol] 6.8 10*3/uL 4.4-11.0 [facility] Absolute lymphocyte countOrd ered By: Renard Burgos on 12-16-2024 Lymphocytes Auto (Unsp spec) [#/Vol] 2.15 10*3/uL 0.83-4.51 [facility] Absolute neutrophil countOrd ered By: Renard Burgos on 12-16-2024 Neutrophils (Bld) [#/Vol] 4.1 10*3/uL 2.0-7.7 [facility] Automated lymphocyte count a s percentage of total leukocytesOrdered By: Renard Burgos on 12-16-2024 Lymphocytes/100 WBC Auto (Unsp spec) 30.7 % 19-41 [facility] Basophil percentageOrdered B y: Renard Burgos on 12-16-2024 Basophils/100 WBC (Bld) 0.7 % 0-1 [facility] CBC W/Diff, Automatedon 11-29 Absolute Lymph 2.15 X10 3/uL Normal 0.83-4.51 [facility] Comment on above: Order Comment: 109.1 Performed By: #### L 100.0100 ####[facility] [address] [place], [address] Absolute Neut 4.1 X10 3/uL Normal 2.0-7.7 [facility] Comment on above: Order Comment: 109.1 Performed By: #### L 100.0100 ####[facility] [address] [place], [address] Basophils/100 WBC (Bld) 0.7 % Normal 0-1 [facility] Comment on above: Order Comment: 109.1 Performed By: #### L 100.0100 ####[facility] [address] [place], [address] Eosinophils/100 WBC (Bld) 0.9 % Normal 0-5 [facility] Comment on above: Order Comment: 109.1 Performed By: #### L 100.0100 ####[facility] [address] [place], [address] Erythrocyte distribution width (RBC) [Ratio] 13.2 % Normal 11.6-14.6 [facility] Comment on above: Order Comment: 109.1 Performed By: #### L 100.0100 ####[facility] [address] [place], [address] Hematocrit (Bld) [Volume fraction] 38.7 % Low 40-54 [facility] Comment on above: Order Comment: 109.1 Performed By: #### L 100.0100 ####[facility] [address] [place], [address] Hemoglobin (Bld) [Mass/Vol] 12.8 g/dL Low 13.0-16.5 [facility] Comment on above: Order Comment: 109.1 Performed By: #### L 100.0100 ####[facility] [address] [place], [address] IG% 0.300 Normal 0.0-0.9 [facility] Comment on above: Order Comment: 109.1 Result Comment: IG% - Immature Granulocytes (promyelocytes, myelocytes andmetamyelocytes) > 1% indicates that a LEFT SHIFT is Present. Performed By: #### L 100.0100 ####[facility] [address] [place], [address] Lymphocytes/100 WBC (Bld) 30.7 % Normal 19-41 [facility] Comment on above: Order Comment: 109.1 Performed By: #### L 100.0100 ####[facility] [address] [place], [address] MCH (RBC) [Entitic mass] 30.3 pg Normal 27.0-32.0 [facility] Comment on above: Order Comment: 109.1 Performed By: #### L 100.0100 ####[facility] [address] [place], [address] MCHC (RBC) [Mass/Vol] 33.1 g/dL Normal 32-36 [facility] Comment on above: Order Comment: 109.1 Performed By: #### L 100.0100 ####[facility] [address] [place], [address] MCV (RBC) [Entitic vol] 91.7 fL Normal 80-94 [facility] Comment on above: Order Comment: 109.1 Performed By: #### L 100.0100 ####[facility] [address] [place], [address] Monocytes/100 WBC (Bld) 8.6 % Normal 0-10 [facility] Comment on above: Order Comment: 109.1 Performed By: #### L 100.0100 ####[facility] [address] [place], [address] Neutrophils/100 WBC (Bld) 58.8 % Normal 47-70 [facility] Comment on above: Order Comment: 109.1 Performed By: #### L 100.0100 ####[facility] [address] [place], [address] Nucleated RBC (Bld) [#/Vol] 0 10*3/uL Normal 0-5 [facility] Comment on above: Order Comment: 109.1 Performed By: #### L 100.0100 ####[facility] [address] [place], [address] Platelet mean volume (Bld) [Entitic vol] 11.3 fL Normal 6.2-12.0 [facility] Comment on above: Order Comment: 109.1 Performed By: #### L 100.0100 ####[facility] [address] [place], [address] Platelets (Bld) [#/Vol] 202 10*3/uL Normal 150-450 [facility] Comment on above: Order Comment: 109.1 Performed By: #### L 100.0100 ####[facility] [address] [place], [address] RBC (Bld) [#/Vol] 4.22 10*6/uL Low 4.6-6.2 [facility] Comment on above: Order Comment: 109.1 Performed By: #### L 100.0100 ####[facility] [address] [place], [address] RDW SD 44.4 fl High 35.1-43.9 [facility] Comment on above: Order Comment: 109.1 Performed By: #### L 100.0100 ####[facility] [address] [place], [address] WBC (Bld) [#/Vol] 7.0 10*3/uL Normal 4.4-11.0 [facility] Comment on above: Order Comment: 109.1 Performed By: #### L 100.0100 ####[facility] [address] [place], [address] Eosinophil percentageOrdered By: Renard Burgos on 12-16-2024 Eosinophils/100 WBC (Bld) 0.9 % 0-5 [facility] Erythrocyte distribution wid th ratioOrdered By: Renard Burgos on 12-16-2024 Erythrocyte distribution width (RBC) [Ratio] 13.2 % 11.6-14.6 [facility] Erythrocyte distribution wid th standard deviationOrdered By: Renard Burgos on 12-16-2024 Erythrocyte distribution width (RBC) [Ratio] 44.4 fl High 35.1-43.9 [facility] Hematocrit Auto (Bld) [Volum e fraction]Ordered By: Renard Burgos on 12-16-2024 Hematocrit (Bld) [Volume fraction] 38.7 % Low 40-54 [facility] Hemoglobin measurementOrdere d By: Renard Burgos on 12-16-2024 Hemoglobin (Bld) [Mass/Vol] 12.8 g/dL Low 13.0-16.5 [facility] Immature granulocytes/100 WB C Auto (Bld)Ordered By: Renard Burgos on 12-16-2024 Immature granulocytes/100 WBC (Bld) 0.300 % 0.0-0.9 [facility] Comment on above: IG% - Immature Granu locytes (promyelocytes, myelocytes and metamyelocytes) > 1% indicates that a LEFT SHIFT is Present. MCV (mean corpuscular volume ) determinationOrdered By: Renard Burgos on 12-16-2024 MCV (RBC) [Entitic vol] 91.7 fL 80-94 [facility] Mean corpuscular hemoglobin (MCH) determinationOrdered By: Renard Burgos on 12-16-2024 MCH (RBC) [Entitic mass] 30.3 pg 27.0-32.0 [facility] Mean corpuscular hemoglobin concentration (MCHC) determinationOrdered By: Renard Burgos on 12-16-2024 MCHC (RBC) [Mass/Vol] 33.1 g/dL 32-36 [facility] Mean platelet volume determi nationOrdered By: Renard Burgos on 12-16-2024 Platelet mean volume (Bld) [Entitic vol] 11.3 fL 6.2-12.0 [facility] Monocyte percentageOrdered B y: Renard Burgos on 12-16-2024 Monocytes/100 WBC (Bld) 8.6 % 0-10 [facility] Neutrophil percentageOrdered By: Renard Burgos on 12-16-2024 Neutrophils/100 WBC (Bld) 58.8 % 47-70 [facility] Nucleated red blood cell per centageOrdered By: Renard Burgos on 12-16-2024 Nucleated RBC/100 WBC (Bld) [Ratio] 0 % 0-5 [facility] Platelet countOrdered By: Garrick Bhatt on 12-16-2024 Platelets (Bld) [#/Vol] 202 10*3/uL 150-450 [facility] RBC Auto (Bld) [#/Vol]Ordere d By: Renard Burgos on 12-16-2024 RBC (Bld) [#/Vol] 4.22 10*6/uL Low 4.6-6.2 [facility] White blood cell (WBC) count Ordered By: Renard Burgos on 12-16-2024 WBC (Bld) [#/Vol] 7.0 10*3/uL 4.4-11.0 [facility] Absolute lymphocyte countOrd ered By: Renard Burgos on 12-09-2024 Lymphocytes Auto (Unsp spec) [#/Vol] 2.30 10*3/uL 0.83-4.51 [facility] Absolute neutrophil countOrd ered By: Renrad Burgos on 12-09-2024 Neutrophils (Bld) [#/Vol] 4.8 10*3/uL 2.0-7.7 [facility] Automated lymphocyte count a s percentage of total leukocytesOrdered By: Renard Burgos on 12-09-2024 Lymphocytes/100 WBC Auto (Unsp spec) 29.2 % 19-41 [facility] Basophil percentageOrdered B y: Renard Burgos on 12-09-2024 Basophils/100 WBC (Bld) 0.5 % 0-1 [facility] CBC W/Diff, Automatedon 11-29 Absolute Lymph 2.30 X10 3/uL Normal 0.83-4.51 [facility] Comment on above: Order Comment: 109.1 Performed By: #### L 100.0100 ####[facility] [address] [place], [address] Absolute Neut 4.8 X10 3/uL Normal 2.0-7.7 [facility] Comment on above: Order Comment: 109.1 Performed By: #### L 100.0100 ####[facility] [address] [place], [address] Basophils/100 WBC (Bld) 0.5 % Normal 0-1 [facility] Comment on above: Order Comment: 109.1 Performed By: #### L 100.0100 ####[facility] [address] [place], [address] Eosinophils/100 WBC (Bld) 1.0 % Normal 0-5 [facility] Comment on above: Order Comment: 109.1 Performed By: #### L 100.0100 ####[facility] [address] [place], [address] Erythrocyte distribution width (RBC) [Ratio] 13.0 % Normal 11.6-14.6 [facility] Comment on above: Order Comment: 109.1 Performed By: #### L 100.0100 ####[facility] [address] [place], [address] Hematocrit (Bld) [Volume fraction] 40.3 % Normal 40-54 [facility] Comment on above: Order Comment: 109.1 Performed By: #### L 100.0100 ####[facility] [address] [place], [address] Hemoglobin (Bld) [Mass/Vol] 12.8 g/dL Low 13.0-16.5 [facility] Comment on above: Order Comment: 109.1 Performed By: #### L 100.0100 ####[facility] [address] [place], [address] IG% 0.400 Normal 0.0-0.9 [facility] Comment on above: Order Comment: 109.1 Result Comment: IG% - Immature Granulocytes (promyelocytes, myelocytes andmetamyelocytes) > 1% indicates that a LEFT SHIFT is Present. Performed By: #### L 100.0100 ####[facility] [address] [place], [address] Lymphocytes/100 WBC (Bld) 29.2 % Normal 19-41 [facility] Comment on above: Order Comment: 109.1 Performed By: #### L 100.0100 ####[facility] [address] [place], [address] MCH (RBC) [Entitic mass] 29.6 pg Normal 27.0-32.0 [facility] Comment on above: Order Comment: 109.1 Performed By: #### L 100.0100 ####[facility] [address] [place], [address] MCHC (RBC) [Mass/Vol] 31.8 g/dL Low 32-36 [facility] Comment on above: Order Comment: 109.1 Performed By: #### L 100.0100 ####[facility] [address] [place], [address] MCV (RBC) [Entitic vol] 93.1 fL Normal 80-94 [facility] Comment on above: Order Comment: 109.1 Performed By: #### L 100.0100 ####[facility] [address], [address] Monocytes/100 WBC (Bld) 7.7 % Normal 0-10 [facility] Comment on above: Order Comment: 109.1 Performed By: #### L 100.0100 ####[facility] [address] [place], [address] Neutrophils/100 WBC (Bld) 61.2 % Normal 47-70 [facility] Comment on above: Order Comment: 109.1 Performed By: #### L 100.0100 ####[facility] [address] [place], [address] Nucleated RBC (Bld) [#/Vol] 0 10*3/uL Normal 0-5 [facility] Comment on above: Order Comment: 109.1 Performed By: #### L 100.0100 ####[facility] [address] [place], [address] Platelet mean volume (Bld) [Entitic vol] 11.5 fL Normal 6.2-12.0 [facility] Comment on above: Order Comment: 109.1 Performed By: #### L 100.0100 ####[facility] [address] [place], [address] Platelets (Bld) [#/Vol] 194 10*3/uL Normal 150-450 [facility] Comment on above: Order Comment: 109.1 Performed By: #### L 100.0100 ####[facility] [address] [place], [address] RBC (Bld) [#/Vol] 4.33 10*6/uL Low 4.6-6.2 [facility] Comment on above: Order Comment: 109.1 Performed By: #### L 100.0100 ####[facility] [address] [place], [address] RDW SD 44.3 fl High 35.1-43.9 [facility] Comment on above: Order Comment: 109.1 Performed By: #### L 100.0100 ####[facility] [address] [place], [address] WBC (Bld) [#/Vol] 7.9 10*3/uL Normal 4.4-11.0 [facility] Comment on above: Order Comment: 109.1 Performed By: #### L 100.0100 ####[facility] [address] [place], [address] Eosinophil percentageOrdered By: Renard Burgos on 12-09-2024 Eosinophils/100 WBC (Bld) 1.0 % 0-5 [facility] Erythrocyte distribution wid th ratioOrdered By: Renard Burgos on 12-09-2024 Erythrocyte distribution width (RBC) [Ratio] 13.0 % 11.6-14.6 [facility] Erythrocyte distribution wid th standard deviationOrdered By: Renard Burgos on 12-09-2024 Erythrocyte distribution width (RBC) [Ratio] 44.3 fl High 35.1-43.9 [facility] Hematocrit Auto (Bld) [Volum e fraction]Ordered By: Renard Burgos on 12-09-2024 Hematocrit (Bld) [Volume fraction] 40.3 % 40-54 [facility] Hemoglobin measurementOrdere d By: Renard Burgos on 12-09-2024 Hemoglobin (Bld) [Mass/Vol] 12.8 g/dL Low 13.0-16.5 [facility] Immature granulocytes/100 WB C Auto (Bld)Ordered By: Renard Burgos on 12-09-2024 Immature granulocytes/100 WBC (Bld) 0.400 % 0.0-0.9 [facility] Comment on above: IG% - Immature Granu locytes (promyelocytes, myelocytes and metamyelocytes) > 1% indicates that a LEFT SHIFT is Present. MCV (mean corpuscular volume ) determinationOrdered By: Renard Burgos on 12-09-2024 MCV (RBC) [Entitic vol] 93.1 fL 80-94 [facility] Mean corpuscular hemoglobin (MCH) determinationOrdered By: Renard Burgos on 12-09-2024 MCH (RBC) [Entitic mass] 29.6 pg 27.0-32.0 [facility] Mean corpuscular hemoglobin concentration (MCHC) determinationOrdered By: Renard Burgos on 12-09-2024 MCHC (RBC) [Mass/Vol] 31.8 g/dL Low 32-36 [facility] Mean platelet volume determi nationOrdered By: Renard Burgos on 12-09-2024 Platelet mean volume (Bld) [Entitic vol] 11.5 fL 6.2-12.0 [facility] Monocyte percentageOrdered B y: Renard Burgos on 12-09-2024 Monocytes/100 WBC (Bld) 7.7 % 0-10 [facility] Neutrophil percentageOrdered By: Renard Burgos on 12-09-2024 Neutrophils/100 WBC (Bld) 61.2 % 47-70 [facility] Nucleated red blood cell per centageOrdered By: Renard Burgos on 12-09-2024 Nucleated RBC/100 WBC (Bld) [Ratio] 0 % 0-5 [facility] Platelet countOrdered By: Garrick Bhatt on 12-09-2024 Platelets (Bld) [#/Vol] 194 10*3/uL 150-450 [facility] RBC Auto (Bld) [#/Vol]Ordere d By: Renard Burgos on 12-09-2024 RBC (Bld) [#/Vol] 4.33 10*6/uL Low 4.6-6.2 [facility] White blood cell (WBC) count Ordered By: Renard Burgos on 12-09-2024 WBC (Bld) [#/Vol] 7.9 10*3/uL 4.4-11.0 [facility] Absolute lymphocyte countOrd ered By: Renard Burgos on 12-02-2024 Lymphocytes Auto (Unsp spec) [#/Vol] 2.83 10*3/uL 0.83-4.51 [facility] Absolute neutrophil countOrd ered By: Renard Burgos on 12-02-2024 Neutrophils (Bld) [#/Vol] 4.7 10*3/uL 2.0-7.7 [facility] Automated lymphocyte count a s percentage of total leukocytesOrdered By: Renard Burgos on 12-02-2024 Lymphocytes/100 WBC Auto (Unsp spec) 31.3 % 19-41 [facility] Basophil percentageOrdered B y: Renard Burgos on 12-02-2024 Basophils/100 WBC (Bld) 0.8 % 0-1 [facility] CBC W/Diff, Automatedon 08 Absolute Lymph 2.83 X10 3/uL Normal 0.83-4.51 [facility] Comment on above: Order Comment: 109.1 Performed By: #### L 100.0100 ####[facility] [address] [place], [address] Absolute Neut 4.7 X10 3/uL Normal 2.0-7.7 [facility] Comment on above: Order Comment: 109.1 Performed By: #### L 100.0100 ####[facility] [address] [place], [address] Basophils/100 WBC (Bld) 0.8 % Normal 0-1 [facility] Comment on above: Order Comment: 109.1 Performed By: #### L 100.0100 ####[facility] [address] [place], [address] Eosinophils/100 WBC (Bld) 0.9 % Normal 0-5 [facility] Comment on above: Order Comment: 109.1 Performed By: #### L 100.0100 ####[facility] [address] [place], [address] Erythrocyte distribution width (RBC) [Ratio] 13.2 % Normal 11.6-14.6 [facility] Comment on above: Order Comment: 109.1 Performed By: #### L 100.0100 ####[facility] [address] [place], [address] Hematocrit (Bld) [Volume fraction] 41.4 % Normal 40-54 [facility] Comment on above: Order Comment: 109.1 Performed By: #### L 100.0100 ####[facility] [address] [place], [address] Hemoglobin (Bld) [Mass/Vol] 13.2 g/dL Normal 13.0-16.5 [facility] Comment on above: Order Comment: 109.1 Performed By: #### L 100.0100 ####[facility] [address] [place], [address] IG% 0.300 Normal 0.0-0.9 [facility] Comment on above: Order Comment: 109.1 Result Comment: IG% - Immature Granulocytes (promyelocytes, myelocytes andmetamyelocytes) > 1% indicates that a LEFT SHIFT is Present. Performed By: #### L 100.0100 ####[facility] [address] [place], [address] Lymphocytes/100 WBC (Bld) 31.3 % Normal 19-41 [facility] Comment on above: Order Comment: 109.1 Performed By: #### L 100.0100 ####[facility] [address] [place], [address] MCH (RBC) [Entitic mass] 30.1 pg Normal 27.0-32.0 [facility] Comment on above: Order Comment: 109.1 Performed By: #### L 100.0100 ####[facility] [address] [place], [address] MCHC (RBC) [Mass/Vol] 31.9 g/dL Low 32-36 [facility] Comment on above: Order Comment: 109.1 Performed By: #### L 100.0100 ####[facility] [address] [place], [address] MCV (RBC) [Entitic vol] 94.5 fL High 80-94 [facility] Comment on above: Order Comment: 109.1 Performed By: #### L 100.0100 ####[facility] [address] [place], [address] Monocytes/100 WBC (Bld) 14.8 % High 0-10 [facility] Comment on above: Order Comment: 109.1 Performed By: #### L 100.0100 ####[facility] [address] [place], [address] Neutrophils/100 WBC (Bld) 51.9 % Normal 47-70 [facility] Comment on above: Order Comment: 109.1 Performed By: #### L 100.0100 ####[facility] [address] [place], [address] Nucleated RBC (Bld) [#/Vol] 0 10*3/uL Normal 0-5 [facility] Comment on above: Order Comment: 109.1 Performed By: #### L 100.0100 ####[facility] [address] [place], [address] Platelet mean volume (Bld) [Entitic vol] 11.2 fL Normal 6.2-12.0 [facility] Comment on above: Order Comment: 109.1 Performed By: #### L 100.0100 ####[facility] [address] [place], [address] Platelets (Bld) [#/Vol] 182 10*3/uL Normal 150-450 [facility] Comment on above: Order Comment: 109.1 Performed By: #### L 100.0100 ####[facility] [address] [place], [address] RBC (Bld) [#/Vol] 4.38 10*6/uL Low 4.6-6.2 [facility] Comment on above: Order Comment: 109.1 Performed By: #### L 100.0100 ####[facility] [address] [place], [address] RDW SD 45.5 fl High 35.1-43.9 [facility] Comment on above: Order Comment: 109.1 Performed By: #### L 100.0100 ####[facility] [address] [place], [address] WBC (Bld) [#/Vol] 9.1 10*3/uL Normal 4.4-11.0 [facility] Comment on above: Order Comment: 109.1 Performed By: #### L 100.0100 ####[facility] [address] [place], [address] Eosinophil percentageOrdered By: Renard Burgos on 12-02-2024 Eosinophils/100 WBC (Bld) 0.9 % 0-5 [facility] Erythrocyte distribution wid th ratioOrdered By: Renard Burgos on 12-02-2024 Erythrocyte distribution width (RBC) [Ratio] 13.2 % 11.6-14.6 [facility] Erythrocyte distribution wid th standard deviationOrdered By: Renard Burgos on 12-02-2024 Erythrocyte distribution width (RBC) [Ratio] 45.5 fl High 35.1-43.9 [facility] Hematocrit Auto (Bld) [Volum e fraction]Ordered By: Renard Burgos on 12-02-2024 Hematocrit (Bld) [Volume fraction] 41.4 % 40-54 [facility] Hemoglobin measurementOrdere d By: Renard Burgos on 12-02-2024 Hemoglobin (Bld) [Mass/Vol] 13.2 g/dL 13.0-16.5 [facility] Immature granulocytes/100 WB C Auto (Bld)Ordered By: Renard Burgos on 12-02-2024 Immature granulocytes/100 WBC (Bld) 0.300 % 0.0-0.9 [facility] Comment on above: IG% - Immature Granu locytes (promyelocytes, myelocytes and metamyelocytes) > 1% indicates that a LEFT SHIFT is Present. MCV (mean corpuscular volume ) determinationOrdered By: Renard Burgos on 12-02-2024 MCV (RBC) [Entitic vol] 94.5 fL High 80-94 [facility] Mean corpuscular hemoglobin (MCH) determinationOrdered By: Renard Burgos on 12-02-2024 MCH (RBC) [Entitic mass] 30.1 pg 27.0-32.0 [facility] Mean corpuscular hemoglobin concentration (MCHC) determinationOrdered By: Renard Burgos on 12-02-2024 MCHC (RBC) [Mass/Vol] 31.9 g/dL Low 32-36 [facility] Mean platelet volume determi nationOrdered By: Renard Burgos on 12-02-2024 Platelet mean volume (Bld) [Entitic vol] 11.2 fL 6.2-12.0 [facility] Monocyte percentageOrdered B y: Renard Burgos on 12-02-2024 Monocytes/100 WBC (Bld) 14.8 % High 0-10 [facility] Neutrophil percentageOrdered By: Renard Burgos on 12-02-2024 Neutrophils/100 WBC (Bld) 51.9 % 47-70 [facility] Nucleated red blood cell per centageOrdered By: Renard Burgos on 12-02-2024 Nucleated RBC/100 WBC (Bld) [Ratio] 0 % 0-5 [facility] Platelet countOrdered By: Garrick Bhatt on 12-02-2024 Platelets (Bld) [#/Vol] 182 10*3/uL 150-450 [facility] RBC Auto (Bld) [#/Vol]Ordere d By: Renard Burgos on 12-02-2024 RBC (Bld) [#/Vol] 4.38 10*6/uL Low 4.6-6.2 [facility] White blood cell (WBC) count Ordered By: Renard Burgos on 12-02-2024 WBC (Bld) [#/Vol] 9.1 10*3/uL 4.4-11.0 [facility] Absolute lymphocyte countOrd ered By: Renard Burgos on 11-25-2024 Lymphocytes Auto (Unsp spec) [#/Vol] 1.80 10*3/uL 0.83-4.51 [facility] Absolute neutrophil countOrd ered By: Renard Burgos on 11-25-2024 Neutrophils (Bld) [#/Vol] 7.6 10*3/uL 2.0-7.7 [facility] Automated blood erythrocyte countOrdered By: Renard Burgos on 11-25-2024 RBC (Bld) [#/Vol] 4.57 10*6/uL Low 4.6-6.2 [facility] Comment on above: Order Comment: 109-1 Performed By: #### L 100.0100 ####[facility] [address] [place], [place], [address] Automated blood hematocrit ( percentage)Ordered By: Renard Burgos on 11-25-2024 Hematocrit (Bld) [Volume fraction] 42.1 % Normal 40-54 [facility] Comment on above: Order Comment: 109-1 Performed By: #### L 100.0100 ####[facility] [address] [facility] [place], [place], [id number] Automated lymphocyte count a s percentage of total leukocytesOrdered By: Renard Burgos on 11-25-2024 Lymphocytes/100 WBC Auto (Unsp spec) 17.3 % Low 19-41 [facility] Basophil percentageOrdered B y: Renard Burgos on 11-25-2024 Basophils/100 WBC (Bld) 0.4 % Normal 0-1 [facility] Comment on above: Order Comment: 109-1 Performed By: #### L 100.0100 ####[facility] [address] [place], [address] CBC W/Diff, Automatedon 10-30 Absolute Lymph 1.80 X10 3/uL Normal 0.83-4.51 [facility] Comment on above: Order Comment: 109-1 Performed By: #### L 100.0100 ####[facility] [address] [place], [address] Absolute Neut 7.6 X10 3/uL Normal 2.0-7.7 [facility] Comment on above: Order Comment: 109-1 Performed By: #### L 100.0100 ####[facility] [address] [place], [address] IG% 0.400 Normal 0.0-0.9 [facility] Comment on above: Order Comment: 109-1 Result Comment: IG% - Immature Granulocytes (promyelocytes, myelocytes andmetamyelocytes) > 1% indicates that a LEFT SHIFT is Present. Performed By: #### L 100.0100 ####[facility] [address] [place], [address] Lymphocytes/100 WBC (Bld) 17.3 % Low 19-41 [facility] Comment on above: Order Comment: 109-1 Performed By: #### L 100.0100 ####[facility] [address] [place], [address] Nucleated RBC (Bld) [#/Vol] 0 10*3/uL Normal 0-5 [facility] Comment on above: Order Comment: 109-1 Performed By: #### L 100.0100 ####[facility] [address] [place], [address] RDW SD 43.7 fl Normal 35.1-43.9 [facility] Comment on above: Order Comment: 109-1 Performed By: #### L 100.0100 ####[facility] [address] [place], [address] Eosinophil percentageOrdered By: Renard Burgos on 11-25-2024 Eosinophils/100 WBC (Bld) 0.6 % Normal 0-5 [facility] Comment on above: Order Comment: 109-1 Performed By: #### L 100.0100 ####[facility] [address] [place], [address] Erythrocyte distribution wid th ratioOrdered By: Renard Burgos on 11-25-2024 Erythrocyte distribution width (RBC) [Ratio] 12.9 % Normal 11.6-14.6 [facility] Comment on above: Order Comment: 109-1 Performed By: #### L 100.0100 ####[facility] [address] [place], [address] Erythrocyte distribution wid th standard deviationOrdered By: Renard Burgos on 11-25-2024 Erythrocyte distribution width (RBC) [Ratio] 43.7 fl 35.1-43.9 [facility] Hemoglobin measurementOrdere d By: Renard Burgos on 11-25-2024 Hemoglobin (Bld) [Mass/Vol] 13.8 g/dL Normal 13.0-16.5 [facility] Comment on above: Order Comment: 109-1 Performed By: #### L 100.0100 ####[facility] [address] [place], [address] Immature granulocytes/100 WB C Auto (Bld)Ordered By: Renard Burgos on 11-25-2024 Immature granulocytes/100 WBC (Bld) 0.400 % 0.0-0.9 [facility] Comment on above: IG% - Immature Granu locytes (promyelocytes, myelocytes and metamyelocytes) > 1% indicates that a LEFT SHIFT is Present. MCV (mean corpuscular volume ) determinationOrdered By: Renard Burgos on 11-25-2024 MCV (RBC) [Entitic vol] 92.1 fL Normal 80-94 [facility] Comment on above: Order Comment: 109-1 Performed By: #### L 100.0100 ####[facility] [address] [place], [place], [phone] Mean corpuscular hemoglobin (MCH) determinationOrdered By: Renard Burgos on 11-25-2024 MCH (RBC) [Entitic mass] 30.2 pg Normal 27.0-32.0 [facility] Comment on above: Order Comment: 109-1 Performed By: #### L 100.0100 ####[facility] [address] [place], [address] Mean corpuscular hemoglobin concentration (MCHC) determinationOrdered By: Renard Burgos on 11-25-2024 MCHC (RBC) [Mass/Vol] 32.8 g/dL Normal 32-36 [facility] Comment on above: Order Comment: 109-1 Performed By: #### L 100.0100 ####[facility] [address] [place], [address] Mean platelet volume determi nationOrdered By: Renard Burgos on 11-25-2024 Platelet mean volume (Bld) [Entitic vol] 11.7 fL Normal 6.2-12.0 [facility] Comment on above: Order Comment: 109-1 Performed By: #### L 100.0100 ####[facility] [address] [place], [place], [phone] Monocyte percentageOrdered B y: Renard Burgos on 11-25-2024 Monocytes/100 WBC (Bld) 8.6 % Normal 0-10 [facility] Comment on above: Order Comment: 109-1 Performed By: #### L 100.0100 ####[facility] [address] [place], [address] Neutrophil percentageOrdered By: Renard Burgos on 11-25-2024 Neutrophils/100 WBC (Bld) 72.7 % High 47-70 [facility] Comment on above: Order Comment: 109-1 Performed By: #### L 100.0100 ####[facility] [address] [place], [address] Nucleated red blood cell per centageOrdered By: Renard Burgos on 11-25-2024 Nucleated RBC/100 WBC (Bld) [Ratio] 0 % 0-5 [facility] Platelet countOrdered By: Garrick Bhatt on 11-25-2024 Platelets (Bld) [#/Vol] 201 10*3/uL Normal 150-450 [facility] Comment on above: Order Comment: 109-1 Performed By: #### L 100.0100 ####[facility] [address] [place], [address] White blood cell (WBC) count Ordered By: Renard Burgos on 11-25-2024 WBC (Bld) [#/Vol] 10.4 10*3/uL Normal 4.4-11.0 [facility] Comment on above: Order Comment: 109-1 Performed By: #### L 100.0100 ####[facility] [address] [place], [place], [phone] Absolute lymphocyte countOrd ered By: Renard Burgos on 11-18-2024 Lymphocytes Auto (Unsp spec) [#/Vol] 2.56 10*3/uL 0.83-4.51 [facility] Absolute neutrophil countOrd ered By: Renard Burgos on 11-18-2024 Neutrophils (Bld) [#/Vol] 6.7 10*3/uL 2.0-7.7 [facility] Automated lymphocyte count a s percentage of total leukocytesOrdered By: Renard Burgos on 11-18-2024 Lymphocytes/100 WBC Auto (Unsp spec) 24.9 % 19-41 [facility] Basophil percentageOrdered B y: Renard Burgos on 11-18-2024 Basophils/100 WBC (Bld) 0.5 % 0-1 [facility] CBC W/Diff, Automatedon 07-2 -2024 Absolute Lymph 2.56 X10 3/uL Normal 0.83-4.51 [facility] Comment on above: Order Comment: 109.1 Performed By: #### L 100.0100 ####[facility] [address] [place], [address] Absolute Neut 6.7 X10 3/uL Normal 2.0-7.7 [facility] Comment on above: Order Comment: 109.1 Performed By: #### L 100.0100 ####[facility] [address] [place], [address] Basophils/100 WBC (Bld) 0.5 % Normal 0-1 [facility] Comment on above: Order Comment: 109.1 Performed By: #### L 100.0100 ####[facility] [address] [place], [address] Eosinophils/100 WBC (Bld) 0.8 % Normal 0-5 [facility] Comment on above: Order Comment: 109.1 Performed By: #### L 100.0100 ####[facility] [address] [place], [address] Erythrocyte distribution width (RBC) [Ratio] 13.2 % Normal 11.6-14.6 [facility] Comment on above: Order Comment: 109.1 Performed By: #### L 100.0100 ####[facility] [address] [place], [address] Hematocrit (Bld) [Volume fraction] 41.6 % Normal 40-54 [facility] Comment on above: Order Comment: 109.1 Performed By: #### L 100.0100 ####[facility] [address] [place], [address] Hemoglobin (Bld) [Mass/Vol] 13.6 g/dL Normal 13.0-16.5 [facility] Comment on above: Order Comment: 109.1 Performed By: #### L 100.0100 ####[facility] [address], [address] IG% 0.400 Normal 0.0-0.9 [facility] Comment on above: Order Comment: 109.1 Result Comment: IG% - Immature Granulocytes (promyelocytes, myelocytes andmetamyelocytes) > 1% indicates that a LEFT SHIFT is Present. Performed By: #### L 100.0100 ####[facility] [address] [place], [address] Lymphocytes/100 WBC (Bld) 24.9 % Normal 19-41 [facility] Comment on above: Order Comment: 109.1 Performed By: #### L 100.0100 ####[facility] [address] [place], [address] MCH (RBC) [Entitic mass] 30.3 pg Normal 27.0-32.0 [facility] Comment on above: Order Comment: 109.1 Performed By: #### L 100.0100 ####[facility] [address] [place], [address] MCHC (RBC) [Mass/Vol] 32.7 g/dL Normal 32-36 [facility] Comment on above: Order Comment: 109.1 Performed By: #### L 100.0100 ####[facility] [address] [place], [address] MCV (RBC) [Entitic vol] 92.7 fL Normal 80-94 [facility] Comment on above: Order Comment: 109.1 Performed By: #### L 100.0100 ####[facility] [address] [place], [address] Monocytes/100 WBC (Bld) 8.9 % Normal 0-10 [facility] Comment on above: Order Comment: 109.1 Performed By: #### L 100.0100 ####[facility] [address] [place], [address] Neutrophils/100 WBC (Bld) 64.5 % Normal 47-70 [facility] Comment on above: Order Comment: 109.1 Performed By: #### L 100.0100 ####[facility] [address] [place], [address] Nucleated RBC (Bld) [#/Vol] 0 10*3/uL Normal 0-5 [facility] Comment on above: Order Comment: 109.1 Performed By: #### L 100.0100 ####[facility] [address] [place], [address] Platelet mean volume (Bld) [Entitic vol] 11.0 fL Normal 6.2-12.0 [facility] Comment on above: Order Comment: 109.1 Performed By: #### L 100.0100 ####[facility] [address] [place], [address] Platelets (Bld) [#/Vol] 177 10*3/uL Normal 150-450 [facility] Comment on above: Order Comment: 109.1 Performed By: #### L 100.0100 ####[facility] [address] [place], [address] RBC (Bld) [#/Vol] 4.49 10*6/uL Low 4.6-6.2 [facility] Comment on above: Order Comment: 109.1 Performed By: #### L 100.0100 ####[facility] [address] [place], [address] RDW SD 44.9 fl High 35.1-43.9 [facility] Comment on above: Order Comment: 109.1 Performed By: #### L 100.0100 ####[facility] [address] [place], [address] WBC (Bld) [#/Vol] 10.3 10*3/uL Normal 4.4-11.0 [facility] Comment on above: Order Comment: 109.1 Performed By: #### L 100.0100 ####[facility] [address] [place], [address] Eosinophil percentageOrdered By: Renard Burgos on 11-18-2024 Eosinophils/100 WBC (Bld) 0.8 % 0-5 [facility] Erythrocyte distribution wid th ratioOrdered By: Renard Burgos on 11-18-2024 Erythrocyte distribution width (RBC) [Ratio] 13.2 % 11.6-14.6 [facility] Erythrocyte distribution wid th standard deviationOrdered By: Renard Burgos on 11-18-2024 Erythrocyte distribution width (RBC) [Ratio] 44.9 fl High 35.1-43.9 [facility] Hematocrit Auto (Bld) [Volum e fraction]Ordered By: Renard Burgos on 11-18-2024 Hematocrit (Bld) [Volume fraction] 41.6 % 40-54 [facility] Hemoglobin measurementOrdere d By: Renard Burgos on 11-18-2024 Hemoglobin (Bld) [Mass/Vol] 13.6 g/dL 13.0-16.5 [facility] Immature granulocytes/100 WB C Auto (Bld)Ordered By: Renard Burgos on 11-18-2024 Immature granulocytes/100 WBC (Bld) 0.400 % 0.0-0.9 [facility] Comment on above: IG% - Immature Granu locytes (promyelocytes, myelocytes and metamyelocytes) > 1% indicates that a LEFT SHIFT is Present. MCV (mean corpuscular volume ) determinationOrdered By: Renard Burgos on 11-18-2024 MCV (RBC) [Entitic vol] 92.7 fL 80-94 [facility] Mean corpuscular hemoglobin (MCH) determinationOrdered By: Renard Burgos on 11-18-2024 MCH (RBC) [Entitic mass] 30.3 pg 27.0-32.0 [facility] Mean corpuscular hemoglobin concentration (MCHC) determinationOrdered By: Renard Burgos on 11-18-2024 MCHC (RBC) [Mass/Vol] 32.7 g/dL 32-36 [facility] Mean platelet volume determi nationOrdered By: Renard Burgos on 11-18-2024 Platelet mean volume (Bld) [Entitic vol] 11.0 fL 6.2-12.0 [facility] Monocyte percentageOrdered B y: Renard Burgos on 11-18-2024 Monocytes/100 WBC (Bld) 8.9 % 0-10 [facility] Neutrophil percentageOrdered By: Renard Burgos on 11-18-2024 Neutrophils/100 WBC (Bld) 64.5 % 47-70 [facility] Nucleated red blood cell per centageOrdered By: Renard Burgos on 11-18-2024 Nucleated RBC/100 WBC (Bld) [Ratio] 0 % 0-5 [facility] Platelet countOrdered By: Garrick Bhatt on 11-18-2024 Platelets (Bld) [#/Vol] 177 10*3/uL 150-450 [facility] RBC Auto (Bld) [#/Vol]Ordere d By: Renard Burgos on 11-18-2024 RBC (Bld) [#/Vol] 4.49 10*6/uL Low 4.6-6.2 [facility] White blood cell (WBC) count Ordered By: Renard Burgos on 11-18-2024 WBC (Bld) [#/Vol] 10.3 10*3/uL 4.4-11.0 [facility] Basic Metabolic Profile (BMP )on 11-12-2024 BUN/CRE 18.8 RATIO Normal 10-20 [facility] Comment on above: Order Comment: ADDED BMP TO 11/11/24 LABS Performed By: #### L 100.0100, L500.2500 ####[facility] [address] [place], [place], [id number] Calcium [Mass/Vol] 8.2 mg/dL Normal 7.6-11.0 [facility] Comment on above: Order Comment: ADDED BMP TO 11/11/24 LABS Performed By: #### L 100.0100, L500.2500 ####[facility] [address] [place], [address] Chloride [Moles/Vol] 104 mmol/L Normal 98-108 [facility] Comment on above: Order Comment: ADDED BMP TO 11/11/24 LABS Performed By: #### L 100.0100, L500.2500 ####[facility] [address] [place], [address] CO2 [Moles/Vol] 24.9 mmol/L Normal 21.0-32.0 [facility] Comment on above: Order Comment: ADDED BMP TO 11/11/24 LABS Performed By: #### L 100.0100, L500.2500 ####[facility] [address] [place], [address] Creatinine [Mass/Vol] 0.58 mg/dL Low 0.70-1.20 [facility] Comment on above: Order Comment: ADDED BMP TO 11/11/24 LABS Performed By: #### L 100.0100, L500.2500 ####[facility] [address] [place], [address] GAP 11 Normal 5-15 [facility] Comment on above: Order Comment: ADDED BMP TO 11/11/24 LABS Performed By: #### L 100.0100, L500.2500 ####[facility] [address] [place], [address] GFR/1.73 sq M.predicted among non-blacks MDRD (S/P/Bld) [Vol rate/Area] 107 mL/min/{1.73_m2} Normal >60 [facility] Comment on above: Order Comment: ADDED BMP TO 11/11/24 LABS Result Comment: mL/m in/1.73m2 CKD-EPI Creatinine Equation (2020) Performed By: #### L 100.0100, L500.2500 ####[facility] [address] [place], [address] Glucose [Mass/Vol] 101 mg/dL High 70-99 [facility] Comment on above: Order Comment: ADDED BMP TO 11/11/24 LABS Performed By: #### L 100.0100, L500.2500 ####[facility] [address] [place], [address] Potassium [Moles/Vol] 3.9 mmol/L Normal 3.3-5.1 [facility] Comment on above: Order Comment: ADDED BMP TO 11/11/24 LABS Performed By: #### L 100.0100, L500.2500 ####[facility] [address] [place], [address] Sodium [Moles/Vol] 140 mmol/L Normal 133-145 [facility] Comment on above: Order Comment: ADDED BMP TO 11/11/24 LABS Performed By: #### L 100.0100, L500.2500 ####[facility] [address] [place], [address] Urea nitrogen [Mass/Vol] 11 mg/dL Normal 4-19 [facility] Comment on above: Order Comment: ADDED BMP TO 11/11/24 LABS Performed By: #### L 100.0100, L500.2500 ####[facility] [address] [place], [address] Absolute lymphocyte countOrd ered By: Renard Burgos on 11-11-2024 Lymphocytes Auto (Unsp spec) [#/Vol] 2.08 10*3/uL 0.83-4.51 [facility] Absolute neutrophil countOrd ered By: Renard Burgos on 11-11-2024 Neutrophils (Bld) [#/Vol] 5.2 10*3/uL 2.0-7.7 [facility] Anion gap in Serum or Plasma Ordered By: Renard Burgos on 11-11-2024 Anion gap [Moles/Vol] 11 mmol/L 5-15 [facility] Automated lymphocyte count a s percentage of total leukocytesOrdered By: Renard Burgos on 11-11-2024 Lymphocytes/100 WBC Auto (Unsp spec) 25.7 % 19- [facility] BUN/creatinine ratioOrdered By: Renard Burgos on 11-11-2024 Urea nitrogen/Creatinine [Mass ratio] 18.8 mg/mg 10- [facility] Basophil percentageOrdered B y: Renard Burgos on 11-11-2024 Basophils/100 WBC (Bld) 0.6 % 0-1 [facility] CBC W/Diff, Automatedon 10-29 Absolute Lymph 2.08 X10 3/uL Normal 0.83-4.51 [facility] Comment on above: Order Comment: 109.1 Performed By: #### L 100.0100, L500.2500 ####[facility] [address] [place], [address] Absolute Neut 5.2 X10 3/uL Normal 2.0-7.7 [facility] Comment on above: Order Comment: 109.1 Performed By: #### L 100.0100, L500.2500 ####[facility] [address] [place], [address] Basophils/100 WBC (Bld) 0.6 % Normal 0-1 [facility] Comment on above: Order Comment: 109.1 Performed By: #### L 100.0100, L500.2500 ####[facility] [address] [place], [address] Eosinophils/100 WBC (Bld) 1.0 % Normal 0-5 [facility] Comment on above: Order Comment: 109.1 Performed By: #### L 100.0100, L500.2500 ####[facility] [address] [place], [address] Erythrocyte distribution width (RBC) [Ratio] 13.2 % Normal 11.6-14.6 [facility] Comment on above: Order Comment: 109.1 Performed By: #### L 100.0100, L500.2500 ####[facility] [address] [place], [address] Hematocrit (Bld) [Volume fraction] 38.6 % Low 40-54 [facility] Comment on above: Order Comment: 109.1 Performed By: #### L 100.0100, L500.2500 ####[facility] [address] [place], [address] Hemoglobin (Bld) [Mass/Vol] 12.6 g/dL Low 13.0-16.5 [facility] Comment on above: Order Comment: 109.1 Performed By: #### L 100.0100, L500.2500 ####[facility] [address] [place], [address] IG% 0.400 Normal 0.0-0.9 [facility] Comment on above: Order Comment: 109.1 Result Comment: IG% - Immature Granulocytes (promyelocytes, myelocytes andmetamyelocytes) > 1% indicates that a LEFT SHIFT is Present. Performed By: #### L 100.0100, L500.2500 ####[facility] [address] [place], [address] Lymphocytes/100 WBC (Bld) 25.7 % Normal 19-41 [facility] Comment on above: Order Comment: 109.1 Performed By: #### L 100.0100, L500.2500 ####[facility] [address] [place], [address] MCH (RBC) [Entitic mass] 29.9 pg Normal 27.0-32.0 [facility] Comment on above: Order Comment: 109.1 Performed By: #### L 100.0100, L500.2500 ####[facility] [address] [place], [address] MCHC (RBC) [Mass/Vol] 32.6 g/dL Normal 32-36 [facility] Comment on above: Order Comment: 109.1 Performed By: #### L 100.0100, L500.2500 ####[facility] [address] [place], [address] MCV (RBC) [Entitic vol] 91.7 fL Normal 80-94 [facility] Comment on above: Order Comment: 109.1 Performed By: #### L 100.0100, L500.2500 ####[facility] [address] [place], [address] Monocytes/100 WBC (Bld) 8.3 % Normal 0-10 [facility] Comment on above: Order Comment: 109.1 Performed By: #### L 100.0100, L500.2500 ####[facility] [address] [place], [address] Neutrophils/100 WBC (Bld) 64.0 % Normal 47-70 [facility] Comment on above: Order Comment: 109.1 Performed By: #### L 100.0100, L500.2500 ####[facility] [address] [place], [address] Nucleated RBC (Bld) [#/Vol] 0 10*3/uL Normal 0-5 [facility] Comment on above: Order Comment: 109.1 Performed By: #### L 100.0100, L500.2500 ####[facility] [address] [place], [address] Platelet mean volume (Bld) [Entitic vol] 11.4 fL Normal 6.2-12.0 [facility] Comment on above: Order Comment: 109.1 Performed By: #### L 100.0100, L500.2500 ####[facility] [address] [place], [address] Platelets (Bld) [#/Vol] 220 10*3/uL Normal 150-450 [facility] Comment on above: Order Comment: 109.1 Performed By: #### L 100.0100, L500.2500 ####[facility] [address] [place], [address] RBC (Bld) [#/Vol] 4.21 10*6/uL Low 4.6-6.2 [facility] Comment on above: Order Comment: 109.1 Performed By: #### L 100.0100, L500.2500 ####[facility] [address] [place], [address] RDW SD 44.4 fl High 35.1-43.9 [facility] Comment on above: Order Comment: 109.1 Performed By: #### L 100.0100, L500.2500 ####[facility] [address] [place], [address] WBC (Bld) [#/Vol] 8.1 10*3/uL Normal 4.4-11.0 [facility] Comment on above: Order Comment: 109.1 Performed By: #### L 100.0100, L500.2500 ####[facility] [address] [place], [address] Carbon dioxide, total [Moles /volume] in Central venous bloodOrdered By: Renard Burgos on 11-11-2024 CO2 [Moles/Vol] 24.9 mmol/L 21.0-32.0 [facility] Chloride assayOrdered By: Garrick Bhatt on 11-11-2024 Chloride [Moles/Vol] 104 mmol/L 98-108 [facility] Eosinophil percentageOrdered By: Renard Burgos on 11-11-2024 Eosinophils/100 WBC (Bld) 1.0 % 0-5 [facility] Erythrocyte distribution wid th ratioOrdered By: Renard Burgos on 11-11-2024 Erythrocyte distribution width (RBC) [Ratio] 13.2 % 11.6-14.6 [facility] Erythrocyte distribution wid th standard deviationOrdered By: Renard Burgos on 11-11-2024 Erythrocyte distribution width (RBC) [Ratio] 44.4 fl High 35.1-43.9 [facility] Glomerular filtration rate ( GFR) estimation/1.73 sq m using serum, plasma, or whole bOrdered By: Renard Burgos on 11-11-2024 GFR/1.73 sq M.predicted among non-blacks MDRD (S/P/Bld) [Vol rate/Area] 107 mL/min/{1.73_m2} >60 [facility] Comment on above: mL/min/1.73m2 CKD-EP I Creatinine Equation (2020) Hematocrit Auto (Bld) [Volum e fraction]Ordered By: Renard Burgos on 11-11-2024 Hematocrit (Bld) [Volume fraction] 38.6 % Low 40-54 [facility] Hemoglobin measurementOrdere d By: Renard Burgos on 11-11-2024 Hemoglobin (Bld) [Mass/Vol] 12.6 g/dL Low 13.0-16.5 [facility] Immature granulocytes/100 WB C Auto (Bld)Ordered By: Renard Burgos on 11-11-2024 Immature granulocytes/100 WBC (Bld) 0.400 % 0.0-0.9 [facility] Comment on above: IG% - Immature Granu locytes (promyelocytes, myelocytes and metamyelocytes) > 1% indicates that a LEFT SHIFT is Present. MCV (mean corpuscular volume ) determinationOrdered By: Renard Burgos on 11-11-2024 MCV (RBC) [Entitic vol] 91.7 fL 80-94 [facility] Mean corpuscular hemoglobin (MCH) determinationOrdered By: Renard Burgos on 11-11-2024 MCH (RBC) [Entitic mass] 29.9 pg 27.0-32.0 [facility] Mean corpuscular hemoglobin concentration (MCHC) determinationOrdered By: Renard Burgos on 11-11-2024 MCHC (RBC) [Mass/Vol] 32.6 g/dL 32-36 [facility] Mean platelet volume determi nationOrdered By: Renard Burgos on 11-11-2024 Platelet mean volume (Bld) [Entitic vol] 11.4 fL 6.2-12.0 [facility] Monocyte percentageOrdered B y: Renard Burgos on 11-11-2024 Monocytes/100 WBC (Bld) 8.3 % 0-10 [facility] Neutrophil percentageOrdered By: Renard Burgos on 11-11-2024 Neutrophils/100 WBC (Bld) 64.0 % 47-70 [facility] Nucleated red blood cell per centageOrdered By: Renard Burgos on 11-11-2024 Nucleated RBC/100 WBC (Bld) [Ratio] 0 % 0-5 [facility] Platelet countOrdered By: Garrick Bhatt on 11-11-2024 Platelets (Bld) [#/Vol] 220 10*3/uL 150-450 [facility] Potassium measurement (mass/ volume)Ordered By: Renard Burgos on 11-11-2024 Potassium (Unsp spec) [Mass/Vol] 3.9 mmol/L 3.3-5.1 [facility] RBC Auto (Bld) [#/Vol]Ordere d By: Renard Burgos on 11-11-2024 RBC (Bld) [#/Vol] 4.21 10*6/uL Low 4.6-6.2 [facility] Serum creatinine measurement (mass/volume)Ordered By: Renard Burgos on 11-11-2024 Creatinine [Mass/Vol] 0.58 mg/dL Low 0.70-1.20 [facility] Serum glucose measurement (m ass/volume)Ordered By: Renard Burgos on 11-11-2024 Glucose [Mass/Vol] 101 mg/dL High 70-99 [facility] Serum or plasma calcium gordy urement (mass/volume)Ordered By: Renard Burgos on 11-11-2024 Calcium [Mass/Vol] 8.2 mg/dL 7.6-11.0 [facility] Serum or plasma urea nitroge n measurement (mass/volume)Ordered By: Renard Burgos on 11-11-2024 Urea nitrogen [Mass/Vol] 11 mg/dL 4-19 [facility] Sodium levelOrdered By: Lamine Burgos on 11-11-2024 Sodium [Moles/Vol] 140 mmol/L 133-145 [facility] White blood cell (WBC) count Ordered By: Renard Burgos on 11-11-2024 WBC (Bld) [#/Vol] 8.1 10*3/uL 4.4-11.0 [facility] Absolute lymphocyte countOrd ered By: Renard Burgos on 11-04-2024 Lymphocytes Auto (Unsp spec) [#/Vol] 2.18 10*3/uL 0.83-4.51 [facility] Absolute neutrophil countOrd ered By: Renard Burgos on 11-04-2024 Neutrophils (Bld) [#/Vol] 4.8 10*3/uL 2.0-7.7 [facility] Automated lymphocyte count a s percentage of total leukocytesOrdered By: Renard Burgos on 11-04-2024 Lymphocytes/100 WBC Auto (Unsp spec) 28.1 % 19-41 [facility] Basophil percentageOrdered B y: Renard Burgos on 11-04-2024 Basophils/100 WBC (Bld) 0.6 % 0-1 [facility] CBC W/Diff, Automatedon PLT EST A Normal ADEQ [facility] Comment on above: Order Comment: 109 Performed By: #### L 100.0100 ####[facility] [address] [place], [place], [id number] PLT MORPH CLUMPED Normal [facility] Comment on above: Order Comment: 109 Performed By: #### L 100.0100 ####[facility] [address] [place], [place], [id number] Eosinophil percentageOrdered By: Renard Burgos on 11-04-2024 Eosinophils/100 WBC (Bld) 0.8 % 0-5 [facility] Erythrocyte distribution wid th ratioOrdered By: Renard Burgos on 11-04-2024 Erythrocyte distribution width (RBC) [Ratio] 13.3 % 11.6-14.6 [facility] Erythrocyte distribution wid th standard deviationOrdered By: Renard Burgos on 11-04-2024 Erythrocyte distribution width (RBC) [Ratio] 45.0 fl High 35.1-43.9 [facility] Hematocrit Auto (Bld) [Volum e fraction]Ordered By: Renard Burgos on 11-04-2024 Hematocrit (Bld) [Volume fraction] 42.8 % 40-54 [facility] Hemoglobin measurementOrdere d By: Renard Burgos on 11-04-2024 Hemoglobin (Bld) [Mass/Vol] 14.0 g/dL 13.0-16.5 [facility] Immature granulocytes/100 WB C Auto (Bld)Ordered By: Renard Burgos on 11-04-2024 Immature granulocytes/100 WBC (Bld) 0.400 % 0.0-0.9 [facility] Comment on above: IG% - Immature Granu locytes (promyelocytes, myelocytes and metamyelocytes) > 1% indicates that a LEFT SHIFT is Present. MCV (mean corpuscular volume ) determinationOrdered By: Renard Burgos on 11-04-2024 MCV (RBC) [Entitic vol] 92.4 fL 80-94 [facility] Mean corpuscular hemoglobin (MCH) determinationOrdered By: Renard Burgos on 11-04-2024 MCH (RBC) [Entitic mass] 30.2 pg 27.0-32.0 [facility] Mean corpuscular hemoglobin concentration (MCHC) determinationOrdered By: Renard Burgos on 11-04-2024 MCHC (RBC) [Mass/Vol] 32.7 g/dL 32-36 [facility] Mean platelet volume determi nationOrdered By: Renard Burgos on 11-04-2024 Platelet mean volume (Bld) [Entitic vol] 11.6 fL 6.2-12.0 [facility] Monocyte percentageOrdered B y: Renard Burgos on 11-04-2024 Monocytes/100 WBC (Bld) 8.4 % 0-10 [facility] Neutrophil percentageOrdered By: Renard Burgos on 11-04-2024 Neutrophils/100 WBC (Bld) 61.7 % 47-70 [facility] Nucleated red blood cell per centageOrdered By: Renard Burgos on 11-04-2024 Nucleated RBC/100 WBC (Bld) [Ratio] 0 % 0-5 [facility] Platelet countOrdered By: Garrick Bhatt on 11-04-2024 Platelet count TNP [facility] Comment on above: Test not performed Platelet estimateOrdered By: Renard Burgos on 11-04-2024 Platelets LM Ql (Bld) A ADEQ [facility] Platelet morphologyOrdered B y: Renard Burgos on 11-04-2024 Platelet morphology finding Nom (Bld) CLUMPED [facility] RBC Auto (Bld) [#/Vol]Ordere d By: Renard Burgos on 11-04-2024 RBC (Bld) [#/Vol] 4.63 10*6/uL 4.6-6.2 [facility] White blood cell (WBC) count Ordered By: Renard Burgos on 11-04-2024 WBC (Bld) [#/Vol] 7.8 10*3/uL 4.4-11.0 [facility] Absolute lymphocyte countOrd ered By: Renard Burgos on 10-28-2024 Lymphocytes Auto (Unsp spec) [#/Vol] 1.72 10*3/uL 0.83-4.51 [facility] Absolute neutrophil countOrd ered By: Renard Burgos on 10-28-2024 Neutrophils (Bld) [#/Vol] 5.0 10*3/uL 2.0-7.7 [facility] Automated lymphocyte count a s percentage of total leukocytesOrdered By: Renard Burgos on 10-28-2024 Lymphocytes/100 WBC Auto (Unsp spec) 22.9 % 19-41 [facility] Basophil percentageOrdered B y: Renard Burgos on 10-28-2024 Basophils/100 WBC (Bld) 0.7 % 0-1 [facility] CBC W/Diff, Automatedon 10-01 Absolute Lymph 1.72 X10 3/uL Normal 0.83-4.51 [facility] Comment on above: Order Comment: 109-1 Performed By: #### L 100.0100 ####[facility] [address] [place], [place], [id number] Absolute Neut 5.0 X10 3/uL Normal 2.0-7.7 [facility] Comment on above: Order Comment: 109-1 Performed By: #### L 100.0100 ####[facility] [address] [place], [address] Basophils/100 WBC (Bld) 0.7 % Normal 0-1 [facility] Comment on above: Order Comment: 109-1 Performed By: #### L 100.0100 ####[facility] [address] [place], [address] Eosinophils/100 WBC (Bld) 1.2 % Normal 0-5 [facility] Comment on above: Order Comment: 109-1 Performed By: #### L 100.0100 ####[facility] [address] [place], [address] Erythrocyte distribution width (RBC) [Ratio] 13.2 % Normal 11.6-14.6 [facility] Comment on above: Order Comment: 109-1 Performed By: #### L 100.0100 ####[facility] [address], [address] Hematocrit (Bld) [Volume fraction] 37.3 % Low 40-54 [facility] Comment on above: Order Comment: 109-1 Performed By: #### L 100.0100 ####[facility] [address] [place], [address] Hemoglobin (Bld) [Mass/Vol] 12.3 g/dL Low 13.0-16.5 [facility] Comment on above: Order Comment: 109-1 Performed By: #### L 100.0100 ####[facility] [address] [place], [address] IG% 0.100 Normal 0.0-0.9 [facility] Comment on above: Order Comment: 109-1 Result Comment: IG% - Immature Granulocytes (promyelocytes, myelocytes andmetamyelocytes) > 1% indicates that a LEFT SHIFT is Present. Performed By: #### L 100.0100 ####[facility] [address], [address] Lymphocytes/100 WBC (Bld) 22.9 % Normal 19-41 [facility] Comment on above: Order Comment: 109-1 Performed By: #### L 100.0100 ####[facility] [address] [place], [address] MCH (RBC) [Entitic mass] 30.1 pg Normal 27.0-32.0 [facility] Comment on above: Order Comment: 109-1 Performed By: #### L 100.0100 ####[facility] [address] [place], [address] MCHC (RBC) [Mass/Vol] 33.0 g/dL Normal 32-36 [facility] Comment on above: Order Comment: 109-1 Performed By: #### L 100.0100 ####[facility] [address] [place], [address] MCV (RBC) [Entitic vol] 91.4 fL Normal 80-94 [facility] Comment on above: Order Comment: 109-1 Performed By: #### L 100.0100 ####[facility] [address] [place], [address] Monocytes/100 WBC (Bld) 8.1 % Normal 0-10 [facility] Comment on above: Order Comment: 109-1 Performed By: #### L 100.0100 ####[facility] [address], [address] Neutrophils/100 WBC (Bld) 67.0 % Normal 47-70 [facility] Comment on above: Order Comment: 109-1 Performed By: #### L 100.0100 ####[facility] [address] [place], [address] Nucleated RBC (Bld) [#/Vol] 0 10*3/uL Normal 0-5 [facility] Comment on above: Order Comment: 109-1 Performed By: #### L 100.0100 ####[facility] [address] [place], [address] Platelet mean volume (Bld) [Entitic vol] 11.3 fL Normal 6.2-12.0 [facility] Comment on above: Order Comment: 109-1 Performed By: #### L 100.0100 ####[facility] [address] [place], [address] Platelets (Bld) [#/Vol] 201 10*3/uL Normal 150-450 [facility] Comment on above: Order Comment: 109-1 Performed By: #### L 100.0100 ####[facility] [address] [place], [address] RBC (Bld) [#/Vol] 4.08 10*6/uL Low 4.6-6.2 [facility] Comment on above: Order Comment: 109-1 Performed By: #### L 100.0100 ####[facility] [address] [place], [address] RDW SD 44.0 fl High 35.1-43.9 [facility] Comment on above: Order Comment: 109-1 Performed By: #### L 100.0100 ####[facility] [address] [place], [address] WBC (Bld) [#/Vol] 7.5 10*3/uL Normal 4.4-11.0 [facility] Comment on above: Order Comment: 109-1 Performed By: #### L 100.0100 ####[facility] [address] [place], [address] Eosinophil percentageOrdered By: Renard Burgos on 10-28-2024 Eosinophils/100 WBC (Bld) 1.2 % 0-5 [facility] Erythrocyte distribution wid th ratioOrdered By: Renard Burgos on 10-28-2024 Erythrocyte distribution width (RBC) [Ratio] 13.2 % 11.6-14.6 [facility] Erythrocyte distribution wid th standard deviationOrdered By: Renard Burgos on 10-28-2024 Erythrocyte distribution width (RBC) [Ratio] 44.0 fl High 35.1-43.9 [facility] Hematocrit Auto (Bld) [Volum e fraction]Ordered By: Renard Burgos on 10-28-2024 Hematocrit (Bld) [Volume fraction] 37.3 % Low 40-54 [facility] Hemoglobin measurementOrdere d By: Renard Burgos on 10-28-2024 Hemoglobin (Bld) [Mass/Vol] 12.3 g/dL Low 13.0-16.5 [facility] Immature granulocytes/100 WB C Auto (Bld)Ordered By: Renard Burgos on 10-28-2024 Immature granulocytes/100 WBC (Bld) 0.100 % 0.0-0.9 [facility] Comment on above: IG% - Immature Granu locytes (promyelocytes, myelocytes and metamyelocytes) > 1% indicates that a LEFT SHIFT is Present. MCV (mean corpuscular volume ) determinationOrdered By: Renard Burgos on 10-28-2024 MCV (RBC) [Entitic vol] 91.4 fL 80-94 [facility] Mean corpuscular hemoglobin (MCH) determinationOrdered By: Renard Burgos on 10-28-2024 MCH (RBC) [Entitic mass] 30.1 pg 27.0-32.0 [facility] Mean corpuscular hemoglobin concentration (MCHC) determinationOrdered By: Renard Burgos on 10-28-2024 MCHC (RBC) [Mass/Vol] 33.0 g/dL 32-36 [facility] Mean platelet volume determi nationOrdered By: Renard Burgos on 10-28-2024 Platelet mean volume (Bld) [Entitic vol] 11.3 fL 6.2-12.0 [facility] Monocyte percentageOrdered B y: Renard Burgos on 10-28-2024 Monocytes/100 WBC (Bld) 8.1 % 0-10 [facility] Neutrophil percentageOrdered By: Renard Burgos on 10-28-2024 Neutrophils/100 WBC (Bld) 67.0 % 47-70 [facility] Nucleated red blood cell per centageOrdered By: Renard Burgos on 10-28-2024 Nucleated RBC/100 WBC (Bld) [Ratio] 0 % 0-5 [facility] Platelet countOrdered By: Garrick Bhatt on 10-28-2024 Platelets (Bld) [#/Vol] 201 10*3/uL 150-450 [facility] RBC Auto (Bld) [#/Vol]Ordere d By: Renard Burgos on 10-28-2024 RBC (Bld) [#/Vol] 4.08 10*6/uL Low 4.6-6.2 [facility] White blood cell (WBC) count Ordered By: Renard Burgos on 10-28-2024 WBC (Bld) [#/Vol] 7.5 10*3/uL 4.4-11.0 [facility] Absolute lymphocyte countOrd ered By: Renadr Burgos on 10-21-2024 Lymphocytes Auto (Unsp spec) [#/Vol] 2.41 10*3/uL 0.83-4.51 [facility] Absolute neutrophil countOrd ered By: Renard Burgos on 10-21-2024 Neutrophils (Bld) [#/Vol] 5.2 10*3/uL 2.0-7.7 [facility] Automated lymphocyte count a s percentage of total leukocytesOrdered By: Renard Burgos on 10-21-2024 Lymphocytes/100 WBC Auto (Unsp spec) 28.2 % 19-41 [facility] Basophil percentageOrdered B y: Renard Burgos on 10-21-2024 Basophils/100 WBC (Bld) 0.6 % 0-1 [facility] CBC W/Diff, Automatedon 09-30 Absolute Lymph 2.41 X10 3/uL Normal 0.83-4.51 [facility] Comment on above: Order Comment: 109 Performed By: #### L 100.0100 ####[facility] [address] [place], [address] Absolute Neut 5.2 X10 3/uL Normal 2.0-7.7 [facility] Comment on above: Order Comment: 109 Performed By: #### L 100.0100 ####[facility] [address] [place], [address] Basophils/100 WBC (Bld) 0.6 % Normal 0-1 [facility] Comment on above: Order Comment: 109 Performed By: #### L 100.0100 ####[facility] [address], [address] Eosinophils/100 WBC (Bld) 0.8 % Normal 0-5 [facility] Comment on above: Order Comment: 109 Performed By: #### L 100.0100 ####[facility] [address] [place], [address] Erythrocyte distribution width (RBC) [Ratio] 13.3 % Normal 11.6-14.6 [facility] Comment on above: Order Comment: 109 Performed By: #### L 100.0100 ####[facility] [address] [place], [address] Hematocrit (Bld) [Volume fraction] 38.9 % Low 40-54 [facility] Comment on above: Order Comment: 109 Performed By: #### L 100.0100 ####[facility] [address] [place], [address] Hemoglobin (Bld) [Mass/Vol] 12.8 g/dL Low 13.0-16.5 [facility] Comment on above: Order Comment: 109 Performed By: #### L 100.0100 ####[facility] [address] [place], [address] IG% 0.400 Normal 0.0-0.9 [facility] Comment on above: Order Comment: 109 Result Comment: IG% - Immature Granulocytes (promyelocytes, myelocytes andmetamyelocytes) > 1% indicates that a LEFT SHIFT is Present. Performed By: #### L 100.0100 ####[facility] [address] [place], [address] Lymphocytes/100 WBC (Bld) 28.2 % Normal 19-41 [facility] Comment on above: Order Comment: 109 Performed By: #### L 100.0100 ####[facility] [address] [place], [address] MCH (RBC) [Entitic mass] 30.1 pg Normal 27.0-32.0 [facility] Comment on above: Order Comment: 109 Performed By: #### L 100.0100 ####[facility] [address] [place], [address] MCHC (RBC) [Mass/Vol] 32.9 g/dL Normal 32-36 [facility] Comment on above: Order Comment: 109 Performed By: #### L 100.0100 ####[facility] [address] [place], [address] MCV (RBC) [Entitic vol] 91.5 fL Normal 80-94 [facility] Comment on above: Order Comment: 109 Performed By: #### L 100.0100 ####[facility] [address] [place], [address] Monocytes/100 WBC (Bld) 9.1 % Normal 0-10 [facility] Comment on above: Order Comment: 109 Performed By: #### L 100.0100 ####[facility] [address] [place], [address] Neutrophils/100 WBC (Bld) 60.9 % Normal 47-70 [facility] Comment on above: Order Comment: 109 Performed By: #### L 100.0100 ####[facility] [address] [place], [address] Nucleated RBC (Bld) [#/Vol] 0 10*3/uL Normal 0-5 [facility] Comment on above: Order Comment: 109 Performed By: #### L 100.0100 ####[facility] [address] [place], [address] Platelet mean volume (Bld) [Entitic vol] 11.2 fL Normal 6.2-12.0 [facility] Comment on above: Order Comment: 109 Performed By: #### L 100.0100 ####[facility] [address] [place], [address] Platelets (Bld) [#/Vol] 204 10*3/uL Normal 150-450 [facility] Comment on above: Order Comment: 109 Performed By: #### L 100.0100 ####[facility] [address] [place], [address] RBC (Bld) [#/Vol] 4.25 10*6/uL Low 4.6-6.2 [facility] Comment on above: Order Comment: 109 Performed By: #### L 100.0100 ####[facility] [address] [place], [address] RDW SD 44.5 fl High 35.1-43.9 [facility] Comment on above: Order Comment: 109 Performed By: #### L 100.0100 ####[facility] [address] [place], [address] WBC (Bld) [#/Vol] 8.5 10*3/uL Normal 4.4-11.0 [facility] Comment on above: Order Comment: 109 Performed By: #### L 100.0100 ####[facility] [address] [place], [address] Eosinophil percentageOrdered By: Renard Burgos on 10-21-2024 Eosinophils/100 WBC (Bld) 0.8 % 0-5 [facility] Erythrocyte distribution wid th ratioOrdered By: Renard Burgos on 10-21-2024 Erythrocyte distribution width (RBC) [Ratio] 13.3 % 11.6-14.6 [facility] Erythrocyte distribution wid th standard deviationOrdered By: Renard Burgos on 10-21-2024 Erythrocyte distribution width (RBC) [Ratio] 44.5 fl High 35.1-43.9 [facility] Hematocrit Auto (Bld) [Volum e fraction]Ordered By: Renard Burgos on 10-21-2024 Hematocrit (Bld) [Volume fraction] 38.9 % Low 40-54 [facility] Hemoglobin measurementOrdere d By: Renard Burgos on 10-21-2024 Hemoglobin (Bld) [Mass/Vol] 12.8 g/dL Low 13.0-16.5 [facility] Immature granulocytes/100 WB C Auto (Bld)Ordered By: Renard Burgos on 10-21-2024 Immature granulocytes/100 WBC (Bld) 0.400 % 0.0-0.9 [facility] Comment on above: IG% - Immature Granu locytes (promyelocytes, myelocytes and metamyelocytes) > 1% indicates that a LEFT SHIFT is Present. MCV (mean corpuscular volume ) determinationOrdered By: Renard Burgos on 10-21-2024 MCV (RBC) [Entitic vol] 91.5 fL 80-94 [facility] Mean corpuscular hemoglobin (MCH) determinationOrdered By: Renard Burgos on 10-21-2024 MCH (RBC) [Entitic mass] 30.1 pg 27.0-32.0 [facility] Mean corpuscular hemoglobin concentration (MCHC) determinationOrdered By: Renard Burgos on 10-21-2024 MCHC (RBC) [Mass/Vol] 32.9 g/dL 32-36 [facility] Mean platelet volume determi nationOrdered By: Renard Burgos on 10-21-2024 Platelet mean volume (Bld) [Entitic vol] 11.2 fL 6.2-12.0 [facility] Monocyte percentageOrdered B y: Renard Burgos on 10-21-2024 Monocytes/100 WBC (Bld) 9.1 % 0-10 [facility] Neutrophil percentageOrdered By: Renard Burgos on 10-21-2024 Neutrophils/100 WBC (Bld) 60.9 % 47-70 [facility] Nucleated red blood cell per centageOrdered By: Renard Burgos on 10-21-2024 Nucleated RBC/100 WBC (Bld) [Ratio] 0 % 0-5 [facility] Platelet countOrdered By: Garrick Bhatt on 10-21-2024 Platelets (Bld) [#/Vol] 204 10*3/uL 150-450 [facility] RBC Auto (Bld) [#/Vol]Ordere d By: Renard Burgos on 10-21-2024 RBC (Bld) [#/Vol] 4.25 10*6/uL Low 4.6-6.2 [facility] White blood cell (WBC) count Ordered By: Renard Burgos on 10-21-2024 WBC (Bld) [#/Vol] 8.5 10*3/uL 4.4-11.0 [facility] Absolute lymphocyte countOrd ered By: Renard Burgos on 10-14-2024 Lymphocytes Auto (Unsp spec) [#/Vol] 1.77 10*3/uL 0.83-4.51 [facility] Absolute neutrophil countOrd ered By: Renard Burgos on 10-14-2024 Neutrophils (Bld) [#/Vol] 4.8 10*3/uL 2.0-7.7 [facility] Automated lymphocyte count a s percentage of total leukocytesOrdered By: Renard Burgos on 10-14-2024 Lymphocytes/100 WBC Auto (Unsp spec) 24.2 % 19-41 [facility] Basophil percentageOrdered B y: Renard Burgos on 10-14-2024 Basophils/100 WBC (Bld) 0.7 % 0-1 [facility] CBC W/Diff, Automatedon 09-29 Absolute Lymph 1.77 X10 3/uL Normal 0.83-4.51 [facility] Comment on above: Order Comment: 109 Performed By: #### L 100.0100 ####[facility] [address] [place], [address] Absolute Neut 4.8 X10 3/uL Normal 2.0-7.7 [facility] Comment on above: Order Comment: 109 Performed By: #### L 100.0100 ####[facility] [address] [place], [address] Basophils/100 WBC (Bld) 0.7 % Normal 0-1 [facility] Comment on above: Order Comment: 109 Performed By: #### L 100.0100 ####[facility] [address], [address] Eosinophils/100 WBC (Bld) 0.8 % Normal 0-5 [facility] Comment on above: Order Comment: 109 Performed By: #### L 100.0100 ####[facility] [address] [place], [address] Erythrocyte distribution width (RBC) [Ratio] 13.2 % Normal 11.6-14.6 [facility] Comment on above: Order Comment: 109 Performed By: #### L 100.0100 ####[facility] [address] [place], [address] Hematocrit (Bld) [Volume fraction] 42.7 % Normal 40-54 [facility] Comment on above: Order Comment: 109 Performed By: #### L 100.0100 ####[facility] [address] [place], [address] Hemoglobin (Bld) [Mass/Vol] 13.9 g/dL Normal 13.0-16.5 [facility] Comment on above: Order Comment: 109 Performed By: #### L 100.0100 ####[facility] [address] [place], [address] IG% 0.300 Normal 0.0-0.9 [facility] Comment on above: Order Comment: 109 Result Comment: IG% - Immature Granulocytes (promyelocytes, myelocytes andmetamyelocytes) > 1% indicates that a LEFT SHIFT is Present. Performed By: #### L 100.0100 ####[facility] [address] [place], [address] Lymphocytes/100 WBC (Bld) 24.2 % Normal 19-41 [facility] Comment on above: Order Comment: 109 Performed By: #### L 100.0100 ####[facility] [address] [place], [address] MCH (RBC) [Entitic mass] 29.7 pg Normal 27.0-32.0 [facility] Comment on above: Order Comment: 109 Performed By: #### L 100.0100 ####[facility] [address] [place], [address] MCHC (RBC) [Mass/Vol] 32.6 g/dL Normal 32-36 [facility] Comment on above: Order Comment: 109 Performed By: #### L 100.0100 ####[facility] [address] [place], [address] MCV (RBC) [Entitic vol] 91.2 fL Normal 80-94 [facility] Comment on above: Order Comment: 109 Performed By: #### L 100.0100 ####[facility] [address] [place], [address] Monocytes/100 WBC (Bld) 8.6 % Normal 0-10 [facility] Comment on above: Order Comment: 109 Performed By: #### L 100.0100 ####[facility] [address] [place], [address] Neutrophils/100 WBC (Bld) 65.4 % Normal 47-70 [facility] Comment on above: Order Comment: 109 Performed By: #### L 100.0100 ####[facility] [address] [place], [address] Nucleated RBC (Bld) [#/Vol] 0 10*3/uL Normal 0-5 [facility] Comment on above: Order Comment: 109 Performed By: #### L 100.0100 ####[facility] [address] [place], [address] Platelet mean volume (Bld) [Entitic vol] 11.1 fL Normal 6.2-12.0 [facility] Comment on above: Order Comment: 109 Performed By: #### L 100.0100 ####[facility] [address] [place], [address] Platelets (Bld) [#/Vol] 232 10*3/uL Normal 150-450 [facility] Comment on above: Order Comment: 109 Performed By: #### L 100.0100 ####[facility] [address] [place], [address] RBC (Bld) [#/Vol] 4.68 10*6/uL Normal 4.6-6.2 [facility] Comment on above: Order Comment: 109 Performed By: #### L 100.0100 ####[facility] [address] [place], [address] RDW SD 44.1 fl High 35.1-43.9 [facility] Comment on above: Order Comment: 109 Performed By: #### L 100.0100 ####[facility] [address] [place], [address] WBC (Bld) [#/Vol] 7.3 10*3/uL Normal 4.4-11.0 [facility] Comment on above: Order Comment: 109 Performed By: #### L 100.0100 ####[facility] [address] [place], [address] Eosinophil percentageOrdered By: Renard Burgos on 10-14-2024 Eosinophils/100 WBC (Bld) 0.8 % 0-5 [facility] Erythrocyte distribution wid th ratioOrdered By: Renard Burgos on 10-14-2024 Erythrocyte distribution width (RBC) [Ratio] 13.2 % 11.6-14.6 [facility] Erythrocyte distribution wid th standard deviationOrdered By: Renard Burgos on 10-14-2024 Erythrocyte distribution width (RBC) [Ratio] 44.1 fl High 35.1-43.9 [facility] Hematocrit Auto (Bld) [Volum e fraction]Ordered By: Renard Burgos on 10-14-2024 Hematocrit (Bld) [Volume fraction] 42.7 % 40-54 [facility] Hemoglobin measurementOrdere d By: Renard Burgos on 10-14-2024 Hemoglobin (Bld) [Mass/Vol] 13.9 g/dL 13.0-16.5 [facility] Immature granulocytes/100 WB C Auto (Bld)Ordered By: Renard Burgos on 10-14-2024 Immature granulocytes/100 WBC (Bld) 0.300 % 0.0-0.9 [facility] Comment on above: IG% - Immature Granu locytes (promyelocytes, myelocytes and metamyelocytes) > 1% indicates that a LEFT SHIFT is Present. MCV (mean corpuscular volume ) determinationOrdered By: Renard Burgos on 10-14-2024 MCV (RBC) [Entitic vol] 91.2 fL 80-94 [facility] Mean corpuscular hemoglobin (MCH) determinationOrdered By: Renard Burgos on 10-14-2024 MCH (RBC) [Entitic mass] 29.7 pg 27.0-32.0 [facility] Mean corpuscular hemoglobin concentration (MCHC) determinationOrdered By: Renard Burgos on 10-14-2024 MCHC (RBC) [Mass/Vol] 32.6 g/dL 32-36 [facility] Mean platelet volume determi nationOrdered By: Renard Burgos on 10-14-2024 Platelet mean volume (Bld) [Entitic vol] 11.1 fL 6.2-12.0 [facility] Monocyte percentageOrdered B y: Renard Burgos on 10-14-2024 Monocytes/100 WBC (Bld) 8.6 % 0-10 [facility] Neutrophil percentageOrdered By: Renard Burgos on 10-14-2024 Neutrophils/100 WBC (Bld) 65.4 % 47-70 [facility] Nucleated red blood cell per centageOrdered By: Renard Burgos on 10-14-2024 Nucleated RBC/100 WBC (Bld) [Ratio] 0 % 0-5 [facility] Platelet countOrdered By: Garrick Bhatt on 10-14-2024 Platelets (Bld) [#/Vol] 232 10*3/uL 150-450 [facility] RBC Auto (Bld) [#/Vol]Ordere d By: Renard Burgos on 10-14-2024 RBC (Bld) [#/Vol] 4.68 10*6/uL 4.6-6.2 [facility] White blood cell (WBC) count Ordered By: Renard Burgos on 10-14-2024 WBC (Bld) [#/Vol] 7.3 10*3/uL 4.4-11.0 [facility] Absolute lymphocyte countOrd ered By: Renard Burgos on 10-07-2024 Lymphocytes Auto (Unsp spec) [#/Vol] 2.20 10*3/uL 0.83-4.51 [facility] Absolute neutrophil countOrd ered By: Renard Burgos on 10-07-2024 Neutrophils (Bld) [#/Vol] 5.1 10*3/uL 2.0-7.7 [facility] Automated lymphocyte count a s percentage of total leukocytesOrdered By: Renard Burgos on 10-07-2024 Lymphocytes/100 WBC Auto (Unsp spec) 27.2 % 19-41 [facility] Basophil percentageOrdered B y: Renard Burgos on 10-07-2024 Basophils/100 WBC (Bld) 0.5 % 0-1 [facility] CBC W/Diff, Automatedon Absolute Lymph 2.20 X10 3/uL Normal 0.83-4.51 [facility] Comment on above: Order Comment: 109-1 Performed By: #### L 100.0100 ####[facility] [address] [place], [address] Absolute Neut 5.1 X10 3/uL Normal 2.0-7.7 [facility] Comment on above: Order Comment: 109-1 Performed By: #### L 100.0100 ####[facility] [address] [place], [address] Basophils/100 WBC (Bld) 0.5 % Normal 0-1 [facility] Comment on above: Order Comment: 109-1 Performed By: #### L 100.0100 ####[facility] [address] [place], [address] Eosinophils/100 WBC (Bld) 0.9 % Normal 0-5 [facility] Comment on above: Order Comment: 109-1 Performed By: #### L 100.0100 ####[facility] [address] [place], [address] Erythrocyte distribution width (RBC) [Ratio] 13.2 % Normal 11.6-14.6 [facility] Comment on above: Order Comment: 109-1 Performed By: #### L 100.0100 ####[facility] [address] [place], [address] Hematocrit (Bld) [Volume fraction] 40.8 % Normal 40-54 [facility] Comment on above: Order Comment: 109-1 Performed By: #### L 100.0100 ####[facility] [address] [place], [address] Hemoglobin (Bld) [Mass/Vol] 13.8 g/dL Normal 13.0-16.5 [facility] Comment on above: Order Comment: 109-1 Performed By: #### L 100.0100 ####[facility] [address] [place], [address] IG% 0.200 Normal 0.0-0.9 [facility] Comment on above: Order Comment: 109-1 Result Comment: IG% - Immature Granulocytes (promyelocytes, myelocytes andmetamyelocytes) > 1% indicates that a LEFT SHIFT is Present. Performed By: #### L 100.0100 ####[facility] [address] [place], [address] Lymphocytes/100 WBC (Bld) 27.2 % Normal 19-41 [facility] Comment on above: Order Comment: 109-1 Performed By: #### L 100.0100 ####[facility] [address] [place], [address] MCH (RBC) [Entitic mass] 30.0 pg Normal 27.0-32.0 [facility] Comment on above: Order Comment: 109-1 Performed By: #### L 100.0100 ####[facility] [address] [place], [address] MCHC (RBC) [Mass/Vol] 33.8 g/dL Normal 32-36 [facility] Comment on above: Order Comment: 109-1 Performed By: #### L 100.0100 ####[facility] [address] [place], [address] MCV (RBC) [Entitic vol] 88.7 fL Normal 80-94 [facility] Comment on above: Order Comment: 109-1 Performed By: #### L 100.0100 ####[facility] [address] [place], [address] Monocytes/100 WBC (Bld) 8.4 % Normal 0-10 [facility] Comment on above: Order Comment: 109-1 Performed By: #### L 100.0100 ####[facility] [address] [place], [address] Neutrophils/100 WBC (Bld) 62.8 % Normal 47-70 [facility] Comment on above: Order Comment: 109-1 Performed By: #### L 100.0100 ####[facility] [address] [place], [address] Nucleated RBC (Bld) [#/Vol] 0 10*3/uL Normal 0-5 [facility] Comment on above: Order Comment: 109-1 Performed By: #### L 100.0100 ####[facility] [address] [place], [address] Platelet mean volume (Bld) [Entitic vol] 11.2 fL Normal 6.2-12.0 [facility] Comment on above: Order Comment: 109-1 Performed By: #### L 100.0100 ####[facility] [address] [place], [address] Platelets (Bld) [#/Vol] 214 10*3/uL Normal 150-450 [facility] Comment on above: Order Comment: 109-1 Performed By: #### L 100.0100 ####[facility] [address] [place], [address] RBC (Bld) [#/Vol] 4.60 10*6/uL Normal 4.6-6.2 [facility] Comment on above: Order Comment: 109-1 Performed By: #### L 100.0100 ####[facility] [address] [place], [address] RDW SD 43.0 fl Normal 35.1-43.9 [facility] Comment on above: Order Comment: 109-1 Performed By: #### L 100.0100 ####[facility] [address] [place], [address] WBC (Bld) [#/Vol] 8.1 10*3/uL Normal 4.4-11.0 [facility] Comment on above: Order Comment: 109-1 Performed By: #### L 100.0100 ####[facility] [address] [place], [address] Eosinophil percentageOrdered By: Renard Burgos on 10-07-2024 Eosinophils/100 WBC (Bld) 0.9 % 0-5 [facility] Erythrocyte distribution wid th ratioOrdered By: Renard Burgos on 10-07-2024 Erythrocyte distribution width (RBC) [Ratio] 13.2 % 11.6-14.6 [facility] Erythrocyte distribution wid th standard deviationOrdered By: Renard Burgos on 10-07-2024 Erythrocyte distribution width (RBC) [Ratio] 43.0 fl 35.1-43.9 [facility] Hematocrit Auto (Bld) [Volum e fraction]Ordered By: Renard Burgos on 10-07-2024 Hematocrit (Bld) [Volume fraction] 40.8 % 40-54 [facility] Hemoglobin measurementOrdere d By: Renard Burgos on 10-07-2024 Hemoglobin (Bld) [Mass/Vol] 13.8 g/dL 13.0-16.5 [facility] Immature granulocytes/100 WB C Auto (Bld)Ordered By: Renard Burgos on 10-07-2024 Immature granulocytes/100 WBC (Bld) 0.200 % 0.0-0.9 [facility] Comment on above: IG% - Immature Granu locytes (promyelocytes, myelocytes and metamyelocytes) > 1% indicates that a LEFT SHIFT is Present. MCV (mean corpuscular volume ) determinationOrdered By: Renard Burgos on 10-07-2024 MCV (RBC) [Entitic vol] 88.7 fL 80-94 [facility] Mean corpuscular hemoglobin (MCH) determinationOrdered By: Renard Burgos on 10-07-2024 MCH (RBC) [Entitic mass] 30.0 pg 27.0-32.0 [facility] Mean corpuscular hemoglobin concentration (MCHC) determinationOrdered By: Renard Burgos on 10-07-2024 MCHC (RBC) [Mass/Vol] 33.8 g/dL 32-36 [facility] Mean platelet volume determi nationOrdered By: Renard Burgos on 10-07-2024 Platelet mean volume (Bld) [Entitic vol] 11.2 fL 6.2-12.0 [facility] Monocyte percentageOrdered B y: Renard Burgos on 10-07-2024 Monocytes/100 WBC (Bld) 8.4 % 0-10 [facility] [facility] Neutrophil percentageOrdered By: Renard Burgos on 10-07-2024 Neutrophils/100 WBC (Bld) 62.8 % 47-70 [facility] Nucleated red blood cell per centageOrdered By: Renard Burgos on 10-07-2024 Nucleated RBC/100 WBC (Bld) [Ratio] 0 % 0-5 [facility] Platelet countOrdered By: Garrick Bhatt on 10-07-2024 Platelets (Bld) [#/Vol] 214 10*3/uL 150-450 [facility] RBC Auto (Bld) [#/Vol]Ordere d By: Renard Burgos on 10-07-2024 RBC (Bld) [#/Vol] 4.60 10*6/uL 4.6-6.2 [facility] White blood cell (WBC) count Ordered By: Renard Burgos on 10-07-2024 WBC (Bld) [#/Vol] 8.1 10*3/uL 4.4-11.0 [facility] Absolute lymphocyte countOrd ered By: Renard Burgos on 09-30-2024 Lymphocytes Auto (Unsp spec) [#/Vol] 3.13 10*3/uL 0.83-4.51 [facility] Absolute neutrophil countOrd ered By: Renard Burgos on 09-30-2024 Neutrophils (Bld) [#/Vol] 5.6 10*3/uL 2.0-7.7 [facility] Automated lymphocyte count a s percentage of total leukocytesOrdered By: Renard Burgos on 09-30-2024 Lymphocytes/100 WBC Auto (Unsp spec) 31.7 % 19-41 [facility] Basophil percentageOrdered B y: Renard Burgos on 09-30-2024 Basophils/100 WBC (Bld) 0.6 % 0-1 [facility] CBC W/Diff, Automatedon Absolute Lymph 3.13 X10 3/uL Normal 0.83-4.51 [facility] Comment on above: Order Comment: 109-1 Performed By: #### L 100.0100 ####[facility] [address] [place], [address] Absolute Neut 5.6 X10 3/uL Normal 2.0-7.7 [facility] Comment on above: Order Comment: 109-1 Performed By: #### L 100.0100 ####[facility] [address] [place], [address] Basophils/100 WBC (Bld) 0.6 % Normal 0-1 [facility] Comment on above: Order Comment: 109-1 Performed By: #### L 100.0100 ####[facility] [address], [address] Eosinophils/100 WBC (Bld) 0.7 % Normal 0-5 [facility] Comment on above: Order Comment: 109-1 Performed By: #### L 100.0100 ####[facility] [address] [place], [address] Erythrocyte distribution width (RBC) [Ratio] 13.0 % Normal 11.6-14.6 [facility] Comment on above: Order Comment: 109-1 Performed By: #### L 100.0100 ####[facility] [address] [place], [address] Hematocrit (Bld) [Volume fraction] 46.9 % Normal 40-54 [facility] Comment on above: Order Comment: 109-1 Performed By: #### L 100.0100 ####[facility] [address] [place], [address] Hemoglobin (Bld) [Mass/Vol] 15.3 g/dL Normal 13.0-16.5 [facility] Comment on above: Order Comment: 109-1 Performed By: #### L 100.0100 ####[facility] [address] [place], [address] IG% 0.300 Normal 0.0-0.9 [facility] Comment on above: Order Comment: 109-1 Result Comment: IG% - Immature Granulocytes (promyelocytes, myelocytes andmetamyelocytes) > 1% indicates that a LEFT SHIFT is Present. Performed By: #### L 100.0100 ####[facility] [address] [place], [address] Lymphocytes/100 WBC (Bld) 31.7 % Normal 19-41 [facility] Comment on above: Order Comment: 109-1 Performed By: #### L 100.0100 ####[facility] [address] [place], [address] MCH (RBC) [Entitic mass] 29.7 pg Normal 27.0-32.0 [facility] Comment on above: Order Comment: 109-1 Performed By: #### L 100.0100 ####[facility] [address] [place], [address] MCHC (RBC) [Mass/Vol] 32.6 g/dL Normal 32-36 [facility] Comment on above: Order Comment: 109-1 Performed By: #### L 100.0100 ####[facility] [address] [place], [address] MCV (RBC) [Entitic vol] 91.1 fL Normal 80-94 [facility] Comment on above: Order Comment: 109-1 Performed By: #### L 100.0100 ####[facility] [address] [place], [address] Monocytes/100 WBC (Bld) 10.4 % High 0-10 [facility] Comment on above: Order Comment: 109-1 Performed By: #### L 100.0100 ####[facility] [address] [place], [address] Neutrophils/100 WBC (Bld) 56.3 % Normal 47-70 [facility] Comment on above: Order Comment: 109-1 Performed By: #### L 100.0100 ####[facility] [address] [place], [address] Nucleated RBC (Bld) [#/Vol] 0 10*3/uL Normal 0-5 [facility] Comment on above: Order Comment: 109-1 Performed By: #### L 100.0100 ####[facility] [address] [place], [address] Platelet mean volume (Bld) [Entitic vol] 11.7 fL Normal 6.2-12.0 [facility] Comment on above: Order Comment: 109-1 Performed By: #### L 100.0100 ####[facility] [address] [place], [address] Platelets (Bld) [#/Vol] 208 10*3/uL Normal 150-450 [facility] Comment on above: Order Comment: 109-1 Performed By: #### L 100.0100 ####[facility] [address] [place], [address] RBC (Bld) [#/Vol] 5.15 10*6/uL Normal 4.6-6.2 [facility] Comment on above: Order Comment: 109-1 Performed By: #### L 100.0100 ####[facility] [address] [place], [address] RDW SD 42.7 fl Normal 35.1-43.9 [facility] Comment on above: Order Comment: 109-1 Performed By: #### L 100.0100 ####[facility] [address] [place], [address] WBC (Bld) [#/Vol] 9.9 10*3/uL Normal 4.4-11.0 [facility] Comment on above: Order Comment: 109-1 Performed By: #### L 100.0100 ####[facility] [address] [place], [address] Eosinophil percentageOrdered By: Renard Burgos on 09-30-2024 Eosinophils/100 WBC (Bld) 0.7 % 0-5 [facility] Erythrocyte distribution wid th ratioOrdered By: Renard Burgos on 09-30-2024 Erythrocyte distribution width (RBC) [Ratio] 13.0 % 11.6-14.6 [facility] Erythrocyte distribution wid th standard deviationOrdered By: Renard Burgos on 09-30-2024 Erythrocyte distribution width (RBC) [Ratio] 42.7 fl 35.1-43.9 [facility] Hematocrit Auto (Bld) [Volum e fraction]Ordered By: Renard Burgos on 09-30-2024 Hematocrit (Bld) [Volume fraction] 46.9 % 40-54 [facility] Hemoglobin measurementOrdere d By: Renard Burgos on 09-30-2024 Hemoglobin (Bld) [Mass/Vol] 15.3 g/dL 13.0-16.5 [facility] Immature granulocytes/100 WB C Auto (Bld)Ordered By: Renard Burgos on 09-30-2024 Immature granulocytes/100 WBC (Bld) 0.300 % 0.0-0.9 [facility] Comment on above: IG% - Immature Granu locytes (promyelocytes, myelocytes and metamyelocytes) > 1% indicates that a LEFT SHIFT is Present. MCV (mean corpuscular volume ) determinationOrdered By: Renard Burgos on 09-30-2024 MCV (RBC) [Entitic vol] 91.1 fL 80-94 [facility] Mean corpuscular hemoglobin (MCH) determinationOrdered By: Renard Burgos on 09-30-2024 MCH (RBC) [Entitic mass] 29.7 pg 27.0-32.0 [facility] Mean corpuscular hemoglobin concentration (MCHC) determinationOrdered By: Renard Burgos on 09-30-2024 MCHC (RBC) [Mass/Vol] 32.6 g/dL 32-36 [facility] Mean platelet volume determi nationOrdered By: Renard Burgos on 09-30-2024 Platelet mean volume (Bld) [Entitic vol] 11.7 fL 6.2-12.0 [facility] Monocyte percentageOrdered B y: Renard Burgos on 09-30-2024 Monocytes/100 WBC (Bld) 10.4 % High 0-10 [facility] Neutrophil percentageOrdered By: Renard Burgos on 09-30-2024 Neutrophils/100 WBC (Bld) 56.3 % 47-70 [facility] Nucleated red blood cell per centageOrdered By: Renard Burgos on 09-30-2024 Nucleated RBC/100 WBC (Bld) [Ratio] 0 % 0-5 [facility] Platelet countOrdered By: Garrick Bhatt on 09-30-2024 Platelets (Bld) [#/Vol] 208 10*3/uL 150-450 [facility] RBC Auto (Bld) [#/Vol]Ordere d By: Renard Burgos on 09-30-2024 RBC (Bld) [#/Vol] 5.15 10*6/uL 4.6-6.2 [facility] White blood cell (WBC) count Ordered By: Renard Burgos on 09-30-2024 WBC (Bld) [#/Vol] 9.9 10*3/uL 4.4-11.0 [facility] Absolute lymphocyte countOrd ered By: Renard Burgos on 09-24-2024 Lymphocytes Auto (Unsp spec) [#/Vol] 1.97 10*3/uL 0.83-4.51 [facility] Absolute neutrophil countOrd ered By: Renard Burgos on 09-24-2024 Neutrophils (Bld) [#/Vol] 6.8 10*3/uL 2.0-7.7 [facility] Automated blood erythrocyte countOrdered By: Renard Burgos on 09-24-2024 RBC (Bld) [#/Vol] 4.48 10*6/uL Low 4.6-6.2 [facility] Comment on above: Order Comment: 109 Performed By: #### L 100.0100 ####[facility] [address] [place], [place], [id number] Automated blood hematocrit ( percentage)Ordered By: Renard Burgos on 09-24-2024 Hematocrit (Bld) [Volume fraction] 40.4 % Normal 40-54 [facility] Comment on above: Order Comment: 109 Performed By: #### L 100.0100 ####[facility] [address] [place], [place], [address] Automated lymphocyte count a s percentage of total leukocytesOrdered By: Renard Burgos on 09-24-2024 Lymphocytes/100 WBC Auto (Unsp spec) 20.5 % 19-41 [facility] Basophil percentageOrdered B y: Renard Burgos on 09-24-2024 Basophils/100 WBC (Bld) 0.5 % Normal 0-1 [facility] Comment on above: Order Comment: 109 Performed By: #### L 100.0100 ####[facility] [address] [place], [address] CBC W/Diff, Automatedon 05-2 Absolute Lymph 1.97 X10 3/uL Normal 0.83-4.51 [facility] Comment on above: Order Comment: 109 Performed By: #### L 100.0100 ####[facility] [address] [place], [address] Absolute Neut 6.8 X10 3/uL Normal 2.0-7.7 [facility] Comment on above: Order Comment: 109 Performed By: #### L 100.0100 ####[facility] [address] [place], [address] IG% 0.300 Normal 0.0-0.9 [facility] Comment on above: Order Comment: 109 Result Comment: IG% - Immature Granulocytes (promyelocytes, myelocytes andmetamyelocytes) > 1% indicates that a LEFT SHIFT is Present. Performed By: #### L 100.0100 ####[facility] [address] [place], [address] Lymphocytes/100 WBC (Bld) 20.5 % Normal 19-41 [facility] Comment on above: Order Comment: 109 Performed By: #### L 100.0100 ####[facility] [address] [place], [address] Nucleated RBC (Bld) [#/Vol] 0 10*3/uL Normal 0-5 [facility] Comment on above: Order Comment: 109 Performed By: #### L 100.0100 ####[facility] [address] [place], [address] RDW SD 42.9 fl Normal 35.1-43.9 [facility] Comment on above: Order Comment: 109 Performed By: #### L 100.0100 ####[facility] [address] [place], [place], [address] Eosinophil percentageOrdered By: Renard Burgos on 09-24-2024 Eosinophils/100 WBC (Bld) 0.5 % Normal 0-5 [facility] Comment on above: Order Comment: 109 Performed By: #### L 100.0100 ####[facility] [address] [place], [place], [address] Erythrocyte distribution wid th ratioOrdered By: Renard Burgos on 09-24-2024 Erythrocyte distribution width (RBC) [Ratio] 13.1 % Normal 11.6-14.6 [facility] Comment on above: Order Comment: 109 Performed By: #### L 100.0100 ####[facility] [address] [place], [place], [address] Erythrocyte distribution wid th standard deviationOrdered By: Renard Burgos on 09-24-2024 Erythrocyte distribution width (RBC) [Ratio] 42.9 fl 35.1-43.9 [facility] Hemoglobin measurementOrdere d By: Renard Burgos on 09-24-2024 Hemoglobin (Bld) [Mass/Vol] 13.4 g/dL Normal 13.0-16.5 [facility] Comment on above: Order Comment: 109 Performed By: #### L 100.0100 ####[facility] [address] [place], [place], [phone] Immature granulocytes/100 WB C Auto (Bld)Ordered By: Renard Burgos on 09-24-2024 Immature granulocytes/100 WBC (Bld) 0.300 % 0.0-0.9 [facility] Comment on above: IG% - Immature Granu locytes (promyelocytes, myelocytes and metamyelocytes) > 1% indicates that a LEFT SHIFT is Present. MCV (mean corpuscular volume ) determinationOrdered By: Renard Burgos on 09-24-2024 MCV (RBC) [Entitic vol] 90.2 fL Normal 80-94 [facility] Comment on above: Order Comment: 109 Performed By: #### L 100.0100 ####[facility] [address] [place], [address] Mean corpuscular hemoglobin (MCH) determinationOrdered By: Renard Burgos on 09-24-2024 MCH (RBC) [Entitic mass] 29.9 pg Normal 27.0-32.0 [facility] Comment on above: Order Comment: 109 Performed By: #### L 100.0100 ####[facility] [address] [place], [address] Mean corpuscular hemoglobin concentration (MCHC) determinationOrdered By: Renard Burgos on 09-24-2024 MCHC (RBC) [Mass/Vol] 33.2 g/dL Normal 32-36 [facility] Comment on above: Order Comment: 109 Performed By: #### L 100.0100 ####[facility] [address] [place], [address] Mean platelet volume determi nationOrdered By: Renard Burgos on 09-24-2024 Platelet mean volume (Bld) [Entitic vol] 11.3 fL Normal 6.2-12.0 [facility] Comment on above: Order Comment: 109 Performed By: #### L 100.0100 ####[facility] [address] [place], [address] Monocyte percentageOrdered B y: Renard Burgos on 09-24-2024 Monocytes/100 WBC (Bld) 7.2 % Normal 0-10 [facility] Comment on above: Order Comment: 109 Performed By: #### L 100.0100 ####[facility] [address] [place], [address] Neutrophil percentageOrdered By: Renard Burgos on 09-24-2024 Neutrophils/100 WBC (Bld) 71.0 % High 47-70 [facility] Comment on above: Order Comment: 109 Performed By: #### L 100.0100 ####[facility] [address] [place], [address] Nucleated red blood cell per centageOrdered By: Renard Burgos on 09-24-2024 Nucleated RBC/100 WBC (Bld) [Ratio] 0 % 0-5 [facility] Platelet countOrdered By: Garrick Bhatt on 09-24-2024 Platelets (Bld) [#/Vol] 187 10*3/uL Normal 150-450 [facility] Comment on above: Order Comment: 109 Performed By: #### L 100.0100 ####[facility] [address] [place], [address] White blood cell (WBC) count Ordered By: Renard Burgos on 09-24-2024 WBC (Bld) [#/Vol] 9.6 10*3/uL Normal 4.4-11.0 [facility] Comment on above: Order Comment: 109 Performed By: #### L 100.0100 ####[facility] [address] [place], [address] Absolute lymphocyte countOrd ered By: Renard Burgos on 09-16-2024 Lymphocytes Auto (Unsp spec) [#/Vol] 2.44 10*3/uL 0.83-4.51 [facility] Absolute neutrophil countOrd ered By: Renard Burgos on 09-16-2024 Neutrophils (Bld) [#/Vol] 5.5 10*3/uL 2.0-7.7 [facility] Automated lymphocyte count a s percentage of total leukocytesOrdered By: Renard Burgos on 09-16-2024 Lymphocytes/100 WBC Auto (Unsp spec) 27.7 % 19- [facility] Basophil percentageOrdered B y: Renard Burgos on 09-16-2024 Basophils/100 WBC (Bld) 0.8 % 0-1 [facility] CBC W/Diff, Automatedon 08-29 Absolute Lymph 2.44 X10 3/uL Normal 0.83-4.51 [facility] Comment on above: Order Comment: 109.1 Performed By: #### L 100.0100 ####[facility] [address] [place], [address] Absolute Neut 5.5 X10 3/uL Normal 2.0-7.7 [facility] Comment on above: Order Comment: 109.1 Performed By: #### L 100.0100 ####[facility] [address] [place], [address] Basophils/100 WBC (Bld) 0.8 % Normal 0-1 [facility] Comment on above: Order Comment: 109.1 Performed By: #### L 100.0100 ####[facility] [address] [place], [address] Eosinophils/100 WBC (Bld) 0.7 % Normal 0-5 [facility] Comment on above: Order Comment: 109.1 Performed By: #### L 100.0100 ####[facility] [address] [place], [address] Erythrocyte distribution width (RBC) [Ratio] 13.1 % Normal 11.6-14.6 [facility] Comment on above: Order Comment: 109.1 Performed By: #### L 100.0100 ####[facility] [address] [place], [address] Hematocrit (Bld) [Volume fraction] 46.8 % Normal 40-54 [facility] Comment on above: Order Comment: 109.1 Performed By: #### L 100.0100 ####[facility] [address] [place], [address] Hemoglobin (Bld) [Mass/Vol] 15.4 g/dL Normal 13.0-16.5 [facility] Comment on above: Order Comment: 109.1 Performed By: #### L 100.0100 ####[facility] [address] [place], [address] IG% 0.200 Normal 0.0-0.9 [facility] Comment on above: Order Comment: 109.1 Result Comment: IG% - Immature Granulocytes (promyelocytes, myelocytes andmetamyelocytes) > 1% indicates that a LEFT SHIFT is Present. Performed By: #### L 100.0100 ####[facility] [address], [address] Lymphocytes/100 WBC (Bld) 27.7 % Normal 19-41 [facility] Comment on above: Order Comment: 109.1 Performed By: #### L 100.0100 ####[facility] [address] [place], [address] MCH (RBC) [Entitic mass] 30.1 pg Normal 27.0-32.0 [facility] Comment on above: Order Comment: 109.1 Performed By: #### L 100.0100 ####[facility] [address] [place], [address] MCHC (RBC) [Mass/Vol] 32.9 g/dL Normal 32-36 [facility] Comment on above: Order Comment: 109.1 Performed By: #### L 100.0100 ####[facility] [address] [place], [address] MCV (RBC) [Entitic vol] 91.4 fL Normal 80-94 [facility] Comment on above: Order Comment: 109.1 Performed By: #### L 100.0100 ####[facility] [address] [place], [address] Monocytes/100 WBC (Bld) 8.5 % Normal 0-10 [facility] Comment on above: Order Comment: 109.1 Performed By: #### L 100.0100 ####[facility] [address] [place], [address] Neutrophils/100 WBC (Bld) 62.1 % Normal 47-70 [facility] Comment on above: Order Comment: 109.1 Performed By: #### L 100.0100 ####[facility] [address] [place], [address] Nucleated RBC (Bld) [#/Vol] 0 10*3/uL Normal 0-5 [facility] Comment on above: Order Comment: 109.1 Performed By: #### L 100.0100 ####[facility] [address] [place], [address] Platelet mean volume (Bld) [Entitic vol] 10.6 fL Normal 6.2-12.0 [facility] Comment on above: Order Comment: 109.1 Performed By: #### L 100.0100 ####[facility] [address] [place], [address] Platelets (Bld) [#/Vol] 190 10*3/uL Normal 150-450 [facility] Comment on above: Order Comment: 109.1 Performed By: #### L 100.0100 ####[facility] [address] [place], [address] RBC (Bld) [#/Vol] 5.12 10*6/uL Normal 4.6-6.2 [facility] Comment on above: Order Comment: 109.1 Performed By: #### L 100.0100 ####[facility] [address] [place], [address] RDW SD 43.3 fl Normal 35.1-43.9 [facility] Comment on above: Order Comment: 109.1 Performed By: #### L 100.0100 ####[facility] [address] [place], [address] WBC (Bld) [#/Vol] 8.8 10*3/uL Normal 4.4-11.0 [facility] Comment on above: Order Comment: 109.1 Performed By: #### L 100.0100 ####[facility] [address] [place], [address] Eosinophil percentageOrdered By: Renard Burgos on 09-16-2024 Eosinophils/100 WBC (Bld) 0.7 % 0-5 [facility] Erythrocyte distribution wid th ratioOrdered By: Renard Burgos on 09-16-2024 Erythrocyte distribution width (RBC) [Ratio] 13.1 % 11.6-14.6 [facility] Erythrocyte distribution wid th standard deviationOrdered By: Renard Burgos on 09-16-2024 Erythrocyte distribution width (RBC) [Ratio] 43.3 fl 35.1-43.9 [facility] Hematocrit Auto (Bld) [Volum e fraction]Ordered By: Renard Burgos on 09-16-2024 Hematocrit (Bld) [Volume fraction] 46.8 % 40-54 [facility] Hemoglobin measurementOrdere d By: Renard Burgos on 09-16-2024 Hemoglobin (Bld) [Mass/Vol] 15.4 g/dL 13.0-16.5 [facility] Immature granulocytes/100 WB C Auto (Bld)Ordered By: Renard Burgos on 09-16-2024 Immature granulocytes/100 WBC (Bld) 0.200 % 0.0-0.9 [facility] Comment on above: IG% - Immature Granu locytes (promyelocytes, myelocytes and metamyelocytes) > 1% indicates that a LEFT SHIFT is Present. MCV (mean corpuscular volume ) determinationOrdered By: Renard Burgos on 09-16-2024 MCV (RBC) [Entitic vol] 91.4 fL 80-94 [facility] Mean corpuscular hemoglobin (MCH) determinationOrdered By: Renard Burgos on 09-16-2024 MCH (RBC) [Entitic mass] 30.1 pg 27.0-32.0 [facility] Mean corpuscular hemoglobin concentration (MCHC) determinationOrdered By: Renard Burgos on 09-16-2024 MCHC (RBC) [Mass/Vol] 32.9 g/dL 32-36 [facility] Mean platelet volume determi nationOrdered By: Renard Burgos on 09-16-2024 Platelet mean volume (Bld) [Entitic vol] 10.6 fL 6.2-12.0 [facility] Monocyte percentageOrdered B y: Renard Burgos on 09-16-2024 Monocytes/100 WBC (Bld) 8.5 % 0-10 [facility] Neutrophil percentageOrdered By: Renard Burgos on 09-16-2024 Neutrophils/100 WBC (Bld) 62.1 % 47-70 [facility] Nucleated red blood cell per centageOrdered By: Renard Burgos on 09-16-2024 Nucleated RBC/100 WBC (Bld) [Ratio] 0 % 0-5 [facility] Platelet countOrdered By: Garrick Bhatt on 09-16-2024 Platelets (Bld) [#/Vol] 190 10*3/uL 150-450 [facility] RBC Auto (Bld) [#/Vol]Ordere d By: Renard Burgos on 09-16-2024 RBC (Bld) [#/Vol] 5.12 10*6/uL 4.6-6.2 [facility] White blood cell (WBC) count Ordered By: Renard Burgos on 09-16-2024 WBC (Bld) [#/Vol] 8.8 10*3/uL 4.4-11.0 [facility] Anion gap in Serum or Plasma Ordered By: Renard Burgos on 09-11-2024 Anion gap [Moles/Vol] 11 mmol/L 5-15 [facility] Automated blood erythrocyte countOrdered By: Renard Burgos on 09-11-2024 RBC (Bld) [#/Vol] 4.67 10*6/uL Normal 4.6-6.2 [facility] Comment on above: Order Comment: 109-1 Performed By: #### L 100.0500, L500.2500 ####[facility] [address] [place], [address] Automated blood hematocrit ( percentage)Ordered By: Renard Burgos on 09-11-2024 Hematocrit (Bld) [Volume fraction] 42.7 % Normal 40-54 [facility] Comment on above: Order Comment: 109-1 Performed By: #### L 100.0500, L500.2500 ####[facility] [address] [place], [address] BUN/creatinine ratioOrdered By: Renard Burgos on 09-11-2024 Urea nitrogen/Creatinine [Mass ratio] 23.0 mg/mg High 10-20 [facility] Basic Metabolic Profile (BMP )on 09-11-2024 BUN/CRE 23.0 RATIO High 10-20 [facility] Comment on above: Order Comment: 109-1 Performed By: #### L 100.0500, L500.2500 ####[facility] [address] [place], [address] Calcium [Mass/Vol] 8.7 mg/dL Normal 7.6-11.0 [facility] Comment on above: Order Comment: 109-1 Performed By: #### L 100.0500, L500.2500 ####[facility] [address] [place], [address] Chloride [Moles/Vol] 104 mmol/L Normal 98-108 [facility] Comment on above: Order Comment: 109-1 Performed By: #### L 100.0500, L500.2500 ####[facility] [address] [place], [address] CO2 [Moles/Vol] 25.9 mmol/L Normal 21.0-32.0 [facility] Comment on above: Order Comment: 109-1 Performed By: #### L 100.0500, L500.2500 ####[facility] [address] [place], [address] Creatinine [Mass/Vol] 0.58 mg/dL Low 0.70-1.20 [facility] Comment on above: Order Comment: 109-1 Performed By: #### L 100.0500, L500.2500 ####[facility] [address] [place], [address] GAP 11 Normal 5-15 [facility] Comment on above: Order Comment: 109-1 Performed By: #### L 100.0500, L500.2500 ####[facility] [address] [place], [address] GFR/1.73 sq M.predicted among non-blacks MDRD (S/P/Bld) [Vol rate/Area] 107 mL/min/{1.73_m2} Normal >60 [facility] Comment on above: Order Comment: 109-1 Result Comment: mL/m in/1.73m2 CKD-EPI Creatinine Equation (2020) Performed By: #### L 100.0500, L500.2500 ####[facility] [address] [place], [address] Glucose [Mass/Vol] 113 mg/dL High 70-99 [facility] Comment on above: Order Comment: 109-1 Performed By: #### L 100.0500, L500.2500 ####[facility] [address] [place], [address] Potassium [Moles/Vol] 3.8 mmol/L Normal 3.3-5.1 [facility] Comment on above: Order Comment: 109-1 Performed By: #### L 100.0500, L500.2500 ####[facility] [address] [place], [address] Sodium [Moles/Vol] 141 mmol/L Normal 133-145 [facility] Comment on above: Order Comment: 109-1 Performed By: #### L 100.0500, L500.2500 ####[facility] [address] [place], [address] Urea nitrogen [Mass/Vol] 13 mg/dL Normal 4-19 [facility] Comment on above: Order Comment: 109-1 Performed By: #### L 100.0500, L500.2500 ####[facility] [address] [place], [address] CBC-Complete Blood Cnt No Di ffon 09-11-2024 RDW SD 43.7 fl Normal 35.1-43.9 [facility] Comment on above: Order Comment: 109-1 Performed By: #### L 100.0500, L500.2500 ####[facility] [address] [place], [place], [address] Carbon dioxide, total [Moles /volume] in Central venous bloodOrdered By: Renard Burgos on 09-11-2024 CO2 [Moles/Vol] 25.9 mmol/L 21.0-32.0 [facility] Chloride assayOrdered By: Garrick Bhatt on 09-11-2024 Chloride [Moles/Vol] 104 mmol/L 98-108 [facility] Erythrocyte distribution wid th ratioOrdered By: Renard Burgos on 09-11-2024 Erythrocyte distribution width (RBC) [Ratio] 13.2 % Normal 11.6-14.6 [facility] Comment on above: Order Comment: 109-1 Performed By: #### L 100.0500, L500.2500 ####[facility] [address] [place], [place], [address] Erythrocyte distribution wid th standard deviationOrdered By: Renard Burgos on 09-11-2024 Erythrocyte distribution width (RBC) [Ratio] 43.7 fl 35.1-43.9 [facility] Glomerular filtration rate ( GFR) estimation/1.73 sq m using serum, plasma, or whole bOrdered By: Renard Burgos on 09-11-2024 GFR/1.73 sq M.predicted among non-blacks MDRD (S/P/Bld) [Vol rate/Area] 107 mL/min/{1.73_m2} >60 [facility] Comment on above: mL/min/1.73m2 CKD-EP I Creatinine Equation (2020) Hemoglobin measurementOrdere d By: Renard Burgos on 09-11-2024 Hemoglobin (Bld) [Mass/Vol] 14.0 g/dL Normal 13.0-16.5 [facility] Comment on above: Order Comment: 109-1 Performed By: #### L 100.0500, L500.2500 ####[facility] [address] [place], [address] MCV (mean corpuscular volume ) determinationOrdered By: Renard Burgos on 09-11-2024 MCV (RBC) [Entitic vol] 91.4 fL Normal 80-94 [facility] Comment on above: Order Comment: 109-1 Performed By: #### L 100.0500, L500.2500 ####[facility] [address] [place], [address] Mean corpuscular hemoglobin (MCH) determinationOrdered By: Renard Burgos on 09-11-2024 MCH (RBC) [Entitic mass] 30.0 pg Normal 27.0-32.0 [facility] Comment on above: Order Comment: 109-1 Performed By: #### L 100.0500, L500.2500 ####[facility] [address] [place], [address] Mean corpuscular hemoglobin concentration (MCHC) determinationOrdered By: Renard Burgos on 09-11-2024 MCHC (RBC) [Mass/Vol] 32.8 g/dL Normal 32-36 [facility] Comment on above: Order Comment: 109-1 Performed By: #### L 100.0500, L500.2500 ####[facility] [address] [place], [address] Mean platelet volume determi nationOrdered By: Renard Burgos on 09-11-2024 Platelet mean volume (Bld) [Entitic vol] 11.3 fL Normal 6.2-12.0 [facility] Comment on above: Order Comment: 109-1 Performed By: #### L 100.0500, L500.2500 ####[facility] [address] [place], [address] Platelet countOrdered By: Garrick Bhatt on 09-11-2024 Platelets (Bld) [#/Vol] 191 10*3/uL Normal 150-450 [facility] Comment on above: Order Comment: 109-1 Performed By: #### L 100.0500, L500.2500 ####[facility] [address] [place], [place], [address] Potassium measurement (mass/ volume)Ordered By: Renard Burgos on 09-11-2024 Potassium (Unsp spec) [Mass/Vol] 3.8 mmol/L 3.3-5.1 [facility] Serum creatinine measurement (mass/volume)Ordered By: Renard Burgos on 09-11-2024 Creatinine [Mass/Vol] 0.58 mg/dL Low 0.70-1.20 [facility] Serum glucose measurement (m ass/volume)Ordered By: Renard Burgos on 09-11-2024 Glucose [Mass/Vol] 113 mg/dL High 70-99 [facility] Serum or plasma calcium gordy urement (mass/volume)Ordered By: Renard Burgos on 09-11-2024 Calcium [Mass/Vol] 8.7 mg/dL 7.6-11.0 [facility] Serum or plasma urea nitroge n measurement (mass/volume)Ordered By: Renard Burgos on 09-11-2024 Urea nitrogen [Mass/Vol] 13 mg/dL 4-19 [facility] Sodium levelOrdered By: Lamine Burgos on 09-11-2024 Sodium [Moles/Vol] 141 mmol/L 133-145 [facility] White blood cell (WBC) count Ordered By: Renard Burgos on 09-11-2024 WBC (Bld) [#/Vol] 7.6 10*3/uL Normal 4.4-11.0 [facility] Comment on above: Order Comment: 109-1 Performed By: #### L 100.0500, L500.2500 ####[facility] [address] [place], [place], [address] Absolute lymphocyte countOrd ered By: Renard Burgos on 09-09-2024 Lymphocytes Auto (Unsp spec) [#/Vol] 2.24 10*3/uL 0.83-4.51 [facility] Absolute neutrophil countOrd ered By: Renard Burgos on 09-09-2024 Neutrophils (Bld) [#/Vol] 8.7 10*3/uL High 2.0-7.7 [facility] Automated lymphocyte count a s percentage of total leukocytesOrdered By: Renard Hensleyrustam on 09-09-2024 Lymphocytes/100 WBC Auto (Unsp spec) 19.1 % 19-41 [facility] Basophil percentageOrdered B y: Renard Burgos on 09-09-2024 Basophils/100 WBC (Bld) 0.4 % 0-1 [facility] CBC W/Diff, Automatedon 08-29 Absolute Lymph 2.24 X10 3/uL Normal 0.83-4.51 [facility] Comment on above: Order Comment: 109-1 Performed By: #### L 100.0100 ####[facility] [address] [place], [address] Absolute Neut 8.7 X10 3/uL High 2.0-7.7 [facility] Comment on above: Order Comment: 109-1 Performed By: #### L 100.0100 ####[facility] [address] [place], [address] Basophils/100 WBC (Bld) 0.4 % Normal 0-1 [facility] Comment on above: Order Comment: 109-1 Performed By: #### L 100.0100 ####[facility] [address] [place], [address] Eosinophils/100 WBC (Bld) 0.5 % Normal 0-5 [facility] Comment on above: Order Comment: 109-1 Performed By: #### L 100.0100 ####[facility] [address] [place], [address] Erythrocyte distribution width (RBC) [Ratio] 13.0 % Normal 11.6-14.6 [facility] Comment on above: Order Comment: 109-1 Performed By: #### L 100.0100 ####[facility] [address] [place], [address] Hematocrit (Bld) [Volume fraction] 44.7 % Normal 40-54 [facility] Comment on above: Order Comment: 109-1 Performed By: #### L 100.0100 ####[facility] [address] [place], [address] Hemoglobin (Bld) [Mass/Vol] 14.6 g/dL Normal 13.0-16.5 [facility] Comment on above: Order Comment: 109-1 Performed By: #### L 100.0100 ####[facility] [address] [place], [address] IG% 0.300 Normal 0.0-0.9 [facility] Comment on above: Order Comment: 109-1 Result Comment: IG% - Immature Granulocytes (promyelocytes, myelocytes andmetamyelocytes) > 1% indicates that a LEFT SHIFT is Present. Performed By: #### L 100.0100 ####[facility] [address] [place], [address] Lymphocytes/100 WBC (Bld) 19.1 % Normal 19-41 [facility] Comment on above: Order Comment: 109-1 Performed By: #### L 100.0100 ####[facility] [address] [place], [address] MCH (RBC) [Entitic mass] 30.1 pg Normal 27.0-32.0 [facility] Comment on above: Order Comment: 109-1 Performed By: #### L 100.0100 ####[facility] [address] [place], [address] MCHC (RBC) [Mass/Vol] 32.7 g/dL Normal 32-36 [facility] Comment on above: Order Comment: 109-1 Performed By: #### L 100.0100 ####[facility] [address] [place], [address] MCV (RBC) [Entitic vol] 92.2 fL Normal 80-94 [facility] Comment on above: Order Comment: 109-1 Performed By: #### L 100.0100 ####[facility] [address] [place], [address] Monocytes/100 WBC (Bld) 5.1 % Normal 0-10 [facility] Comment on above: Order Comment: 109-1 Performed By: #### L 100.0100 ####[facility] [address] [place], [address] Neutrophils/100 WBC (Bld) 74.6 % High 47-70 [facility] Comment on above: Order Comment: 109-1 Performed By: #### L 100.0100 ####[facility] [address] [place], [address] Nucleated RBC (Bld) [#/Vol] 0 10*3/uL Normal 0-5 [facility] Comment on above: Order Comment: 109-1 Performed By: #### L 100.0100 ####[facility] [address] [place], [address] Platelet mean volume (Bld) [Entitic vol] 11.6 fL Normal 6.2-12.0 [facility] Comment on above: Order Comment: 109-1 Performed By: #### L 100.0100 ####[facility] [address] [place], [address] Platelets (Bld) [#/Vol] 189 10*3/uL Normal 150-450 [facility] Comment on above: Order Comment: 109-1 Performed By: #### L 100.0100 ####[facility] [address] [place], [address] RBC (Bld) [#/Vol] 4.85 10*6/uL Normal 4.6-6.2 [facility] Comment on above: Order Comment: 109-1 Performed By: #### L 100.0100 ####[facility] [address] [place], [address] RDW SD 43.8 fl Normal 35.1-43.9 [facility] Comment on above: Order Comment: 109-1 Performed By: #### L 100.0100 ####[facility] [address] [place], [address] WBC (Bld) [#/Vol] 11.7 10*3/uL High 4.4-11.0 [facility] Comment on above: Order Comment: 109-1 Performed By: #### L 100.0100 ####[facility] [address] [facility] [place], [address] Eosinophil percentageOrdered By: Renard Burgos on 09-09-2024 Eosinophils/100 WBC (Bld) 0.5 % 0-5 [facility] Erythrocyte distribution wid th ratioOrdered By: Renard Burgos on 09-09-2024 Erythrocyte distribution width (RBC) [Ratio] 13.0 % 11.6-14.6 [facility] Erythrocyte distribution wid th standard deviationOrdered By: Renard Burgos on 09-09-2024 Erythrocyte distribution width (RBC) [Ratio] 43.8 fl 35.1-43.9 [facility] Hematocrit Auto (Bld) [Volum e fraction]Ordered By: Renard Burgos on 09-09-2024 Hematocrit (Bld) [Volume fraction] 44.7 % 40-54 [facility] Hemoglobin measurementOrdere d By: Renard Burgos on 09-09-2024 Hemoglobin (Bld) [Mass/Vol] 14.6 g/dL 13.0-16.5 [facility] Immature granulocytes/100 WB C Auto (Bld)Ordered By: Renard Burgos on 09-09-2024 Immature granulocytes/100 WBC (Bld) 0.300 % 0.0-0.9 [facility] Comment on above: IG% - Immature Granu locytes (promyelocytes, myelocytes and metamyelocytes) > 1% indicates that a LEFT SHIFT is Present. MCV (mean corpuscular volume ) determinationOrdered By: Renard Burgos on 09-09-2024 MCV (RBC) [Entitic vol] 92.2 fL 80-94 [facility] Mean corpuscular hemoglobin (MCH) determinationOrdered By: Renard Burgos on 09-09-2024 MCH (RBC) [Entitic mass] 30.1 pg 27.0-32.0 [facility] Mean corpuscular hemoglobin concentration (MCHC) determinationOrdered By: Renard Burgos on 09-09-2024 MCHC (RBC) [Mass/Vol] 32.7 g/dL 32-36 [facility] Mean platelet volume determi nationOrdered By: Renard Burgos on 09-09-2024 Platelet mean volume (Bld) [Entitic vol] 11.6 fL 6.2-12.0 [facility] Monocyte percentageOrdered B y: Renard Burgos on 09-09-2024 Monocytes/100 WBC (Bld) 5.1 % 0-10 [facility] Neutrophil percentageOrdered By: Renard Burgos on 09-09-2024 Neutrophils/100 WBC (Bld) 74.6 % High 47-70 [facility] Nucleated red blood cell per centageOrdered By: Renard Burgos on 09-09-2024 Nucleated RBC/100 WBC (Bld) [Ratio] 0 % 0-5 [facility] Platelet countOrdered By: Garrick Bhatt on 09-09-2024 Platelets (Bld) [#/Vol] 189 10*3/uL 150-450 [facility] RBC Auto (Bld) [#/Vol]Ordere d By: Renard Burgos on 09-09-2024 RBC (Bld) [#/Vol] 4.85 10*6/uL 4.6-6.2 [facility] White blood cell (WBC) count Ordered By: Renard Burgos on 09-09-2024 WBC (Bld) [#/Vol] 11.7 10*3/uL High 4.4-11.0 [facility] Absolute lymphocyte countOrd ered By: Renard Burgos on 09-02-2024 Lymphocytes Auto (Unsp spec) [#/Vol] 2.07 10*3/uL 0.83-4.51 [facility] Absolute neutrophil countOrd ered By: Renard Burgos on 09-02-2024 Neutrophils (Bld) [#/Vol] 5.8 10*3/uL 2.0-7.7 [facility] Automated lymphocyte count a s percentage of total leukocytesOrdered By: Renard Burgos on 09-02-2024 Lymphocytes/100 WBC Auto (Unsp spec) 24.4 % 19-41 [facility] Basophil percentageOrdered B y: Renard Burgos on 09-02-2024 Basophils/100 WBC (Bld) 0.6 % 0-1 [facility] CBC W/Diff, Automatedon -2024 Absolute Lymph 2.07 X10 3/uL Normal 0.83-4.51 [facility] Comment on above: Order Comment: 109 Performed By: #### L 100.0100 ####[facility] [address] [place], [address] Absolute Neut 5.8 X10 3/uL Normal 2.0-7.7 [facility] Comment on above: Order Comment: 109 Performed By: #### L 100.0100 ####[facility] [address] [place], [address] Basophils/100 WBC (Bld) 0.6 % Normal 0-1 [facility] Comment on above: Order Comment: 109 Performed By: #### L 100.0100 ####[facility] [address] [place], [address] Eosinophils/100 WBC (Bld) 0.7 % Normal 0-5 [facility] Comment on above: Order Comment: 109 Performed By: #### L 100.0100 ####[facility] [address] [place], [address] Erythrocyte distribution width (RBC) [Ratio] 12.8 % Normal 11.6-14.6 [facility] Comment on above: Order Comment: 109 Performed By: #### L 100.0100 ####[facility] [address] [place], [address] Hematocrit (Bld) [Volume fraction] 44.5 % Normal 40-54 [facility] Comment on above: Order Comment: 109 Performed By: #### L 100.0100 ####[facility] [address] [place], [address] Hemoglobin (Bld) [Mass/Vol] 14.9 g/dL Normal 13.0-16.5 [facility] Comment on above: Order Comment: 109 Performed By: #### L 100.0100 ####[facility] [address] [place], [address] IG% 0.400 Normal 0.0-0.9 [facility] Comment on above: Order Comment: 109 Result Comment: IG% - Immature Granulocytes (promyelocytes, myelocytes andmetamyelocytes) > 1% indicates that a LEFT SHIFT is Present. Performed By: #### L 100.0100 ####[facility] [address] [place], [address] Lymphocytes/100 WBC (Bld) 24.4 % Normal 19-41 [facility] Comment on above: Order Comment: 109 Performed By: #### L 100.0100 ####[facility] [address] [place], [address] MCH (RBC) [Entitic mass] 29.9 pg Normal 27.0-32.0 [facility] Comment on above: Order Comment: 109 Performed By: #### L 100.0100 ####[facility] [address] [place], [address] MCHC (RBC) [Mass/Vol] 33.5 g/dL Normal 32-36 [facility] Comment on above: Order Comment: 109 Performed By: #### L 100.0100 ####[facility] [address] [place], [address] MCV (RBC) [Entitic vol] 89.4 fL Normal 80-94 [facility] Comment on above: Order Comment: 109 Performed By: #### L 100.0100 ####[facility] [address] [place], [address] Monocytes/100 WBC (Bld) 5.4 % Normal 0-10 [facility] Comment on above: Order Comment: 109 Performed By: #### L 100.0100 ####[facility] [address] [place], [address] Neutrophils/100 WBC (Bld) 68.5 % Normal 47-70 [facility] Comment on above: Order Comment: 109 Performed By: #### L 100.0100 ####[facility] [address] [place], [address] Nucleated RBC (Bld) [#/Vol] 0 10*3/uL Normal 0-5 [facility] Comment on above: Order Comment: 109 Performed By: #### L 100.0100 ####[facility] [address] [place], [address] Platelet mean volume (Bld) [Entitic vol] 10.7 fL Normal 6.2-12.0 [facility] Comment on above: Order Comment: 109 Performed By: #### L 100.0100 ####[facility] [address] [place], [address] Platelets (Bld) [#/Vol] 189 10*3/uL Normal 150-450 [facility] Comment on above: Order Comment: 109 Performed By: #### L 100.0100 ####[facility] [address] [place], [address] RBC (Bld) [#/Vol] 4.98 10*6/uL Normal 4.6-6.2 [facility] Comment on above: Order Comment: 109 Performed By: #### L 100.0100 ####[facility] [address] [place], [address] RDW SD 41.7 fl Normal 35.1-43.9 [facility] Comment on above: Order Comment: 109 Performed By: #### L 100.0100 ####[facility] [address] [place], [address] WBC (Bld) [#/Vol] 8.5 10*3/uL Normal 4.4-11.0 [facility] Comment on above: Order Comment: 109 Performed By: #### L 100.0100 ####[facility] [address] [place], [place], [id number]) Eosinophil percentageOrdered By: Renard Burgos on 09-02-2024 Eosinophils/100 WBC (Bld) 0.7 % 0-5 [facility] Erythrocyte distribution wid th ratioOrdered By: Renard Burgos on 09-02-2024 Erythrocyte distribution width (RBC) [Ratio] 12.8 % 11.6-14.6 [facility] Erythrocyte distribution wid th standard deviationOrdered By: Renard Burgos on 09-02-2024 Erythrocyte distribution width (RBC) [Ratio] 41.7 fl 35.1-43.9 [facility] Hematocrit Auto (Bld) [Volum e fraction]Ordered By: Renard Burgos on 09-02-2024 Hematocrit (Bld) [Volume fraction] 44.5 % 40-54 [facility] Hemoglobin measurementOrdere d By: Renard Burgos on 09-02-2024 Hemoglobin (Bld) [Mass/Vol] 14.9 g/dL 13.0-16.5 [facility] Immature granulocytes/100 WB C Auto (Bld)Ordered By: Renard Burgos on 09-02-2024 Immature granulocytes/100 WBC (Bld) 0.400 % 0.0-0.9 [facility] Comment on above: IG% - Immature Granu locytes (promyelocytes, myelocytes and metamyelocytes) > 1% indicates that a LEFT SHIFT is Present. MCV (mean corpuscular volume ) determinationOrdered By: Renard Burgos on 09-02-2024 MCV (RBC) [Entitic vol] 89.4 fL 80-94 [facility] Mean corpuscular hemoglobin (MCH) determinationOrdered By: Renard Burgos on 09-02-2024 MCH (RBC) [Entitic mass] 29.9 pg 27.0-32.0 [facility] Mean corpuscular hemoglobin concentration (MCHC) determinationOrdered By: Renard Burgos on 09-02-2024 MCHC (RBC) [Mass/Vol] 33.5 g/dL 32-36 [facility] Mean platelet volume determi nationOrdered By: Renard Burgos on 09-02-2024 Platelet mean volume (Bld) [Entitic vol] 10.7 fL 6.2-12.0 [facility] Monocyte percentageOrdered B y: Renard Burgos on 09-02-2024 Monocytes/100 WBC (Bld) 5.4 % 0-10 [facility] Neutrophil percentageOrdered By: Renard Burgos on 09-02-2024 Neutrophils/100 WBC (Bld) 68.5 % 47-70 [facility] Nucleated red blood cell per centageOrdered By: Renard Burgos on 09-02-2024 Nucleated RBC/100 WBC (Bld) [Ratio] 0 % 0-5 [facility] Platelet countOrdered By: Garrick Bhatt on 09-02-2024 Platelets (Bld) [#/Vol] 189 10*3/uL 150-450 [facility] RBC Auto (Bld) [#/Vol]Ordere d By: Renard Burgos on 09-02-2024 RBC (Bld) [#/Vol] 4.98 10*6/uL 4.6-6.2 [facility] White blood cell (WBC) count Ordered By: Renard Burgos on 09-02-2024 WBC (Bld) [#/Vol] 8.5 10*3/uL 4.4-11.0 [facility] Absolute lymphocyte countOrd ered By: Renard Burgos on 08-26-2024 Lymphocytes Auto (Unsp spec) [#/Vol] 2.17 10*3/uL 0.83-4.51 [facility] Absolute neutrophil countOrd ered By: Renard Burgos on 08-26-2024 Neutrophils (Bld) [#/Vol] 5.7 10*3/uL 2.0-7.7 [facility] Automated lymphocyte count a s percentage of total leukocytesOrdered By: Renard Burgos on 08-26-2024 Lymphocytes/100 WBC Auto (Unsp spec) 25.1 % 19-41 [facility] Basophil percentageOrdered B y: Renard Burgos on 08-26-2024 Basophils/100 WBC (Bld) 0.6 % 0-1 [facility] CBC W/Diff, Automatedon 07-31 Absolute Lymph 2.17 X10 3/uL Normal 0.83-4.51 [facility] Comment on above: Order Comment: 109-1 Performed By: #### L 100.0100 ####[facility] [address] [place], [address] Absolute Neut 5.7 X10 3/uL Normal 2.0-7.7 [facility] Comment on above: Order Comment: 109-1 Performed By: #### L 100.0100 ####[facility] [address] [place], [address] Basophils/100 WBC (Bld) 0.6 % Normal 0-1 [facility] Comment on above: Order Comment: 109-1 Performed By: #### L 100.0100 ####[facility] [address] [place], [address] Eosinophils/100 WBC (Bld) 0.8 % Normal 0-5 [facility] Comment on above: Order Comment: 109-1 Performed By: #### L 100.0100 ####[facility] [address] [place], [address] Erythrocyte distribution width (RBC) [Ratio] 12.7 % Normal 11.6-14.6 [facility] Comment on above: Order Comment: 109-1 Performed By: #### L 100.0100 ####[facility] [address] [place], [address] Hematocrit (Bld) [Volume fraction] 41.8 % Normal 40-54 [facility] Comment on above: Order Comment: 109-1 Performed By: #### L 100.0100 ####[facility] [address] [place], [address] Hemoglobin (Bld) [Mass/Vol] 13.8 g/dL Normal 13.0-16.5 [facility] Comment on above: Order Comment: 109-1 Performed By: #### L 100.0100 ####[facility] [address] [place], [address] IG% 0.200 Normal 0.0-0.9 [facility] Comment on above: Order Comment: 109-1 Result Comment: IG% - Immature Granulocytes (promyelocytes, myelocytes andmetamyelocytes) > 1% indicates that a LEFT SHIFT is Present. Performed By: #### L 100.0100 ####[facility] [address] [place], [address] Lymphocytes/100 WBC (Bld) 25.1 % Normal 19-41 [facility] Comment on above: Order Comment: 109-1 Performed By: #### L 100.0100 ####[facility] [address] [place], [address] MCH (RBC) [Entitic mass] 29.7 pg Normal 27.0-32.0 [facility] Comment on above: Order Comment: 109-1 Performed By: #### L 100.0100 ####[facility] [address] [place], [address] MCHC (RBC) [Mass/Vol] 33.0 g/dL Normal 32-36 [facility] Comment on above: Order Comment: 109-1 Performed By: #### L 100.0100 ####[facility] [address] [place], [address] MCV (RBC) [Entitic vol] 90.1 fL Normal 80-94 [facility] Comment on above: Order Comment: 109-1 Performed By: #### L 100.0100 ####[facility] [address] [place], [address] Monocytes/100 WBC (Bld) 7.4 % Normal 0-10 [facility] Comment on above: Order Comment: 109-1 Performed By: #### L 100.0100 ####[facility] [address], [address] Neutrophils/100 WBC (Bld) 65.9 % Normal 47-70 [facility] Comment on above: Order Comment: 109-1 Performed By: #### L 100.0100 ####[facility] [address] [place], [address] Nucleated RBC (Bld) [#/Vol] 0 10*3/uL Normal 0-5 [facility] Comment on above: Order Comment: 109-1 Performed By: #### L 100.0100 ####[facility] [address] [place], [address] Platelet mean volume (Bld) [Entitic vol] 11.3 fL Normal 6.2-12.0 [facility] Comment on above: Order Comment: 109-1 Performed By: #### L 100.0100 ####[facility] [address] [place], [address] Platelets (Bld) [#/Vol] 196 10*3/uL Normal 150-450 [facility] Comment on above: Order Comment: 109-1 Performed By: #### L 100.0100 ####[facility] [address] [place], [address] RBC (Bld) [#/Vol] 4.64 10*6/uL Normal 4.6-6.2 [facility] Comment on above: Order Comment: 109-1 Performed By: #### L 100.0100 ####[facility] [address] [place], [address] RDW SD 41.3 fl Normal 35.1-43.9 [facility] Comment on above: Order Comment: 109-1 Performed By: #### L 100.0100 ####[facility] [address] [place], [address] WBC (Bld) [#/Vol] 8.6 10*3/uL Normal 4.4-11.0 [facility] Comment on above: Order Comment: 109-1 Performed By: #### L 100.0100 ####[facility] [address] [place], [address] Eosinophil percentageOrdered By: Renard Burgos on 08-26-2024 Eosinophils/100 WBC (Bld) 0.8 % 0-5 [facility] Erythrocyte distribution wid th ratioOrdered By: Renard Burgos on 08-26-2024 Erythrocyte distribution width (RBC) [Ratio] 12.7 % 11.6-14.6 [facility] Erythrocyte distribution wid th standard deviationOrdered By: Renard Burgos on 08-26-2024 Erythrocyte distribution width (RBC) [Ratio] 41.3 fl 35.1-43.9 [facility] Hematocrit Auto (Bld) [Volum e fraction]Ordered By: Renard Burgos on 08-26-2024 Hematocrit (Bld) [Volume fraction] 41.8 % 40-54 [facility] Hemoglobin measurementOrdere d By: Renard Burgos on 08-26-2024 Hemoglobin (Bld) [Mass/Vol] 13.8 g/dL 13.0-16.5 [facility] Immature granulocytes/100 WB C Auto (Bld)Ordered By: Renard Burgos on 08-26-2024 Immature granulocytes/100 WBC (Bld) 0.200 % 0.0-0.9 [facility] Comment on above: IG% - Immature Granu locytes (promyelocytes, myelocytes and metamyelocytes) > 1% indicates that a LEFT SHIFT is Present. MCV (mean corpuscular volume ) determinationOrdered By: Renard Burgos on 08-26-2024 MCV (RBC) [Entitic vol] 90.1 fL 80-94 [facility] Mean corpuscular hemoglobin (MCH) determinationOrdered By: Renard Burgos on 08-26-2024 MCH (RBC) [Entitic mass] 29.7 pg 27.0-32.0 [facility] Mean corpuscular hemoglobin concentration (MCHC) determinationOrdered By: Renard Burgos on 08-26-2024 MCHC (RBC) [Mass/Vol] 33.0 g/dL 32-36 [facility] Mean platelet volume determi nationOrdered By: Renard Burgos on 08-26-2024 Platelet mean volume (Bld) [Entitic vol] 11.3 fL 6.2-12.0 [facility] Monocyte percentageOrdered B y: Renard Burgos on 08-26-2024 Monocytes/100 WBC (Bld) 7.4 % 0-10 [facility] Neutrophil percentageOrdered By: Renard Burgos on 08-26-2024 Neutrophils/100 WBC (Bld) 65.9 % 47-70 [facility] Nucleated red blood cell per centageOrdered By: Renard Burgos on 08-26-2024 Nucleated RBC/100 WBC (Bld) [Ratio] 0 % 0-5 [facility] Platelet countOrdered By: Garrick Bhatt on 08-26-2024 Platelets (Bld) [#/Vol] 196 10*3/uL 150-450 [facility] RBC Auto (Bld) [#/Vol]Ordere d By: Renard Burgos on 08-26-2024 RBC (Bld) [#/Vol] 4.64 10*6/uL 4.6-6.2 [facility] White blood cell (WBC) count Ordered By: Renard Burgos on 08-26-2024 WBC (Bld) [#/Vol] 8.6 10*3/uL 4.4-11.0 [facility] Anion gap in Serum or Plasma Ordered By: Renard Burgos on 08-23-2024 Anion gap [Moles/Vol] 10 mmol/L 5-15 [facility] BUN/creatinine ratioOrdered By: Renard Burgos on 08-23-2024 Urea nitrogen/Creatinine [Mass ratio] 21.4 mg/mg High 10-20 [facility] Bilirubin, totalOrdered By: Renard Burgos on 08-23-2024 Bilirubin [Mass/Vol] 0.35 mg/dL 0.00-1.30 [facility] CBC-Complete Blood Cnt No Di ffon 08-23-2024 Erythrocyte distribution width (RBC) [Ratio] 12.7 % Normal 11.6-14.6 [facility] Comment on above: Order Comment: 109.1 Performed By: #### L 500.4100, L100.0500, L500.4050 ####[facility] [address] [place], [address] Hematocrit (Bld) [Volume fraction] 42.2 % Normal 40-54 [facility] Comment on above: Order Comment: 109.1 Performed By: #### L 500.4100, L100.0500, L500.4050 ####[facility] [address] [place], [address] Hemoglobin (Bld) [Mass/Vol] 14.0 g/dL Normal 13.0-16.5 [facility] Comment on above: Order Comment: 109.1 Performed By: #### L 500.4100, L100.0500, L500.4050 ####[facility] [address] [place], [address] MCH (RBC) [Entitic mass] 30.0 pg Normal 27.0-32.0 [facility] Comment on above: Order Comment: 109.1 Performed By: #### L 500.4100, L100.0500, L500.4050 ####[facility] [address] [place], [address] MCHC (RBC) [Mass/Vol] 33.2 g/dL Normal 32-36 [facility] Comment on above: Order Comment: 109.1 Performed By: #### L 500.4100, L100.0500, L500.4050 ####[facility] [address] [place], [address] MCV (RBC) [Entitic vol] 90.6 fL Normal 80-94 [facility] Comment on above: Order Comment: 109.1 Performed By: #### L 500.4100, L100.0500, L500.4050 ####[facility] [address] [place], [address] Platelet mean volume (Bld) [Entitic vol] 11.3 fL Normal 6.2-12.0 [facility] Comment on above: Order Comment: 109.1 Performed By: #### L 500.4100, L100.0500, L500.4050 ####[facility] [address] [place], [address] Platelets (Bld) [#/Vol] 184 10*3/uL Normal 150-450 [facility] Comment on above: Order Comment: 109.1 Performed By: #### L 500.4100, L100.0500, L500.4050 ####[facility] [address] [place], [address] RBC (Bld) [#/Vol] 4.66 10*6/uL Normal 4.6-6.2 [facility] Comment on above: Order Comment: 109.1 Performed By: #### L 500.4100, L100.0500, L500.4050 ####[facility] [address] [place], [address] RDW SD 41.8 fl Normal 35.1-43.9 [facility] Comment on above: Order Comment: 109.1 Performed By: #### L 500.4100, L100.0500, L500.4050 ####[facility] [address] [place], [address] WBC (Bld) [#/Vol] 8.6 10*3/uL Normal 4.4-11.0 [facility] Comment on above: Order Comment: 109.1 Performed By: #### L 500.4100, L100.0500, L500.4050 ####[facility] [address] [place], [address] Calculated very low density lipoprotein (VLDL) cholesterol measurementOrdered By: Renard Burgos on 08-23-2024 Calculated very low density lipoprotein (VLDL) cholesterol measurement 40 mg/dL 5-40 [facility] Carbon dioxide, total [Moles /volume] in Central venous bloodOrdered By: Renard Burgos on 08-23-2024 CO2 [Moles/Vol] 24.9 mmol/L 21.0-32.0 [facility] Chloride assayOrdered By: Garrick Bhatt on 08-23-2024 Chloride [Moles/Vol] 106 mmol/L 98-108 [facility] Metabolic Prof ilon 08-23-2024 Albumin [Mass/Vol] 3.4 g/dL Normal 3.4-4.8 [facility] Comment on above: Order Comment: 109.1 Performed By: #### L 500.4100, L100.0500, L500.4050 ####[facility] [address] [place], [address] Albumin/Globulin [Mass ratio] 1.4 {ratio} Normal 0.9-2.4 [facility] Comment on above: Order Comment: 109.1 Performed By: #### L 500.4100, L100.0500, L500.4050 ####[facility] [address] [place], [address] ALK PHOS 101 U/L Normal 40-129 [facility] Comment on above: Order Comment: 109.1 Performed By: #### L 500.4100, L100.0500, L500.4050 ####[facility] [address] [place], [address] ALT [Catalytic activity/Vol] 13 U/L Normal <=46 [facility] Comment on above: Order Comment: 109.1 Performed By: #### L 500.4100, L100.0500, L500.4050 ####[facility] [address] [place], [address] AST [Catalytic activity/Vol] 17 U/L Normal <=37 [facility] Comment on above: Order Comment: 109.1 Performed By: #### L 500.4100, L100.0500, L500.4050 ####[facility] [address] [place], [address] Bilirubin [Mass/Vol] 0.35 mg/dL Normal 0.00-1.30 [facility] Comment on above: Order Comment: 109.1 Performed By: #### L 500.4100, L100.0500, L500.4050 ####[facility] [address] [place], [address] BUN/CRE 21.4 RATIO High 10-20 [facility] Comment on above: Order Comment: 109.1 Performed By: #### L 500.4100, L100.0500, L500.4050 ####[facility] [address] [place], [address] Calcium [Mass/Vol] 8.2 mg/dL Normal 7.6-11.0 [facility] Comment on above: Order Comment: 109.1 Performed By: #### L 500.4100, L100.0500, L500.4050 ####[facility] [address] [place], [address] Chloride [Moles/Vol] 106 mmol/L Normal 98-108 [facility] Comment on above: Order Comment: 109.1 Performed By: #### L 500.4100, L100.0500, L500.4050 ####[facility] [address] [place], [address] CO2 [Moles/Vol] 24.9 mmol/L Normal 21.0-32.0 [facility] Comment on above: Order Comment: 109.1 Performed By: #### L 500.4100, L100.0500, L500.4050 ####[facility] [address] [place], [address] Creatinine [Mass/Vol] 0.63 mg/dL Low 0.70-1.20 [facility] Comment on above: Order Comment: 109.1 Performed By: #### L 500.4100, L100.0500, L500.4050 ####[facility] [address] [place], [address] GAP 10 Normal 5-15 [facility] Comment on above: Order Comment: 109.1 Performed By: #### L 500.4100, L100.0500, L500.4050 ####[facility] [address] [place], [address] GFR/1.73 sq M.predicted among non-blacks MDRD (S/P/Bld) [Vol rate/Area] 104 mL/min/{1.73_m2} Normal >60 [facility] Comment on above: Order Comment: 109.1 Result Comment: mL/m in/1.73m2 CKD-EPI Creatinine Equation (2020) Performed By: #### L 500.4100, L100.0500, L500.4050 ####[facility] [address] [place], [address] Globulin (S) [Mass/Vol] 2.3 g/dL Normal 2.2-4.2 [facility] Comment on above: Order Comment: 109.1 Performed By: #### L 500.4100, L100.0500, L500.4050 ####[facility] [address] [place], [address] Glucose [Mass/Vol] 116 mg/dL High 70-99 [facility] Comment on above: Order Comment: 109.1 Performed By: #### L 500.4100, L100.0500, L500.4050 ####[facility] [address] [place], [address] Potassium [Moles/Vol] 3.8 mmol/L Normal 3.3-5.1 [facility] Comment on above: Order Comment: 109.1 Performed By: #### L 500.4100, L100.0500, L500.4050 ####[facility] [address] [place], [address] Sodium [Moles/Vol] 141 mmol/L Normal 133-145 [facility] Comment on above: Order Comment: 109.1 Performed By: #### L 500.4100, L100.0500, L500.4050 ####[facility] [address] [place], [address] T PROT 5.7 g/dL Low 5.9-8.4 [facility] Comment on above: Order Comment: 109.1 Performed By: #### L 500.4100, L100.0500, L500.4050 ####[facility] [address] [place], [address] Urea nitrogen [Mass/Vol] 14 mg/dL Normal 4-19 [facility] Comment on above: Order Comment: 109.1 Performed By: #### L 500.4100, L100.0500, L500.4050 ####[facility] [address] [place], [address] Erythrocyte distribution wid th ratioOrdered By: Renard Burgos on 08-23-2024 Erythrocyte distribution width (RBC) [Ratio] 12.7 % 11.6-14.6 [facility] Erythrocyte distribution wid th standard deviationOrdered By: Renard Burgos on 08-23-2024 Erythrocyte distribution width (RBC) [Ratio] 41.8 fl 35.1-43.9 [facility] Glomerular filtration rate ( GFR) estimation/1.73 sq m using serum, plasma, or whole bOrdered By: Renard Burgos on 08-23-2024 GFR/1.73 sq M.predicted among non-blacks MDRD (S/P/Bld) [Vol rate/Area] 104 mL/min/{1.73_m2} >60 [facility] Comment on above: mL/min/1.73m2 CKD-EP I Creatinine Equation (2020) Hematocrit Auto (Bld) [Volum e fraction]Ordered By: Renard Burgos on 08-23-2024 Hematocrit (Bld) [Volume fraction] 42.2 % 40-54 [facility] Hemoglobin measurementOrdere d By: Renard Burgos on 08-23-2024 Hemoglobin (Bld) [Mass/Vol] 14.0 g/dL 13.0-16.5 [facility] LDL calc ser/plasOrdered By: Renard Burgos on 08-23-2024 Cholesterol in LDL [Mass/Vol] 62 mg/dL [facility] Comment on above: Jnmihbubrk=716-369 m g/dL & Higher Saim=639 mg/dL or greater Laboratory - Chemistry and C hemistry - challengeOrdered By: Renard Burgos on 08-23-2024 AST [Catalytic activity/Vol] 17 U/L <38 [facility] Lipid Profileon 08-23-2024 CHOL:HDL 5.32 Normal [facility] Comment on above: Order Comment: 109.1 Performed By: #### L 500.4100, L100.0500, L500.4050 ####[facility] [address] [place], [place], [address] Cholesterol [Mass/Vol] 125 mg/dL Normal <=200 [facility] Comment on above: Order Comment: 109.1 Result Comment: Chol esterol level, Desirable <200 mg/dLBorderline high cholesterol 200-239 mg/dLHigh cholesterol >=240 mg/dLRecommendations of the NCEP Adult Treatment Panel for thefollowing risk-cutoff thresholds for the [place] Americanpulation. Performed By: #### L 500.4100, L100.0500, L500.4050 ####[facility] [address] [place], [address] Cholesterol in HDL [Mass/Vol] 24 mg/dL Low [facility] Comment on above: Order Comment: 109.1 Result Comment: Lucy onal Cholesterol Education Program (NCEP) guidelines:<40 mg/dL: Low HDL-cholesterol (major risk factor for CHD)>= 60 mg/dL: High HDL-cholesterol (negative risk factor forCHD)HDL-cholesterol is affected by a number of factors, e.g.smoking, exercise, hormones, sex and age. Performed By: #### L 500.4100, L100.0500, L500.4050 ####[facility] [address] [place], [address] Cholesterol in LDL [Mass/Vol] 62 mg/dL Normal [facility] Comment on above: Order Comment: 109.1 Result Comment: Bord zakbgu=784-088 mg/dL Higher Mzyw=665 mg/dL or greater Performed By: #### L 500.4100, L100.0500, L500.4050 ####[facility] [address] [place], [address] Cholesterol in VLDL [Mass/Vol] 40 mg/dL Normal 5-40 [facility] Comment on above: Order Comment: 109.1 Performed By: #### L 500.4100, L100.0500, L500.4050 ####[facility] [address] [place], [address] Triglyceride [Mass/Vol] 198 mg/dL Normal [facility] Comment on above: Order Comment: 109.1 Result Comment: The drugs N-Acetylcysteine and Metamizole may falselydepress this assay.Normal range: <150 mg/dLBorderline High: 150-199 mg/dLHigh: 200-499 mg/dLVery High: >500 mg/dL Performed By: #### L 500.4100, L100.0500, L500.4050 ####[facility] [address] [place], [address] MCV (mean corpuscular volume ) determinationOrdered By: Renard Burgos on 08-23-2024 MCV (RBC) [Entitic vol] 90.6 fL 80-94 [facility] Mean corpuscular hemoglobin (MCH) determinationOrdered By: Renard Burgos on 08-23-2024 MCH (RBC) [Entitic mass] 30.0 pg 27.0-32.0 [facility] Mean corpuscular hemoglobin concentration (MCHC) determinationOrdered By: Renard Burgos on 08-23-2024 MCHC (RBC) [Mass/Vol] 33.2 g/dL 32-36 [facility] Mean platelet volume determi nationOrdered By: Renard Burgos on 08-23-2024 Platelet mean volume (Bld) [Entitic vol] 11.3 fL 6.2-12.0 [facility] Platelet countOrdered By: Garrick Bhatt on 08-23-2024 Platelets (Bld) [#/Vol] 184 10*3/uL 150-450 [facility] Potassium measurement (mass/ volume)Ordered By: Renard Burgos on 08-23-2024 Potassium (Unsp spec) [Mass/Vol] 3.8 mmol/L 3.3-5.1 [facility] RBC Auto (Bld) [#/Vol]Ordere d By: Renard Burgos on 08-23-2024 RBC (Bld) [#/Vol] 4.66 10*6/uL 4.6-6.2 [facility] Screening total cholesterol/ high density lipoprotein (HDL) cholesterol ratioOrdered By: Renard Burgos on 08-23-2024 Cholesterol.total/Cecilia sterol in HDL [Mass ratio] 5.32 {ratio} [facility] Serum creatinine measurement (mass/volume)Ordered By: Renard Burgos on 08-23-2024 Creatinine [Mass/Vol] 0.63 mg/dL Low 0.70-1.20 [facility] Serum globulin measurementOr dered By: Renard Burgos on 08-23-2024 Globulin (S) [Mass/Vol] 2.3 g/dL 2.2-4.2 [facility] Serum glucose measurement (m ass/volume)Ordered By: Renard Burgos on 08-23-2024 Glucose [Mass/Vol] 116 mg/dL High 70-99 [facility] Serum or plasma alanine kay otransferase (ALT) measurementOrdered By: Renard Burgos on 08-23-2024 ALT [Catalytic activity/Vol] 13 U/L <47 [facility] Serum or plasma albumin gordy urement (mass/volume)Ordered By: Renard Burgos on 08-23-2024 Albumin [Mass/Vol] 3.4 g/dL 3.4-4.8 [facility] Serum or plasma albumin/glob ulin mass ratioOrdered By: Renard Burgos on 08-23-2024 Albumin/Globulin [Mass ratio] 1.4 {ratio} 0.9-2.4 [facility] Serum or plasma alkaline trace sphatase measurementOrdered By: Renard Burgos on 08-23-2024 ALP [Catalytic activity/Vol] 101 U/L 40-129 [facility] Serum or plasma calcium gordy urement (mass/volume)Ordered By: Renard Burgos on 08-23-2024 Calcium [Mass/Vol] 8.2 mg/dL 7.6-11.0 [facility] Serum or plasma cholesterol in HDL measurement (mass/volume)Ordered By: Renard Burgos on 08-23-2024 Cholesterol in HDL [Mass/Vol] 24 mg/dL Low >40 [facility] Comment on above: National Cholesterol Education Program (NCEP) guidelines:<40 mg/dL: Low HDL-cholesterol (major risk factor for CHD)>= 60 mg/dL: High HDL-cholesterol (negative risk factor for CHD)HDL-cholesterol is affected by a number of factors, e.g. smoking, exercise, hormones, sex and age. Serum or plasma cholesterol measurement (mass/volume)Ordered By: Renard Burgos on 08-23-2024 Cholesterol [Mass/Vol] 125 mg/dL <201 [facility] Comment on above: Cholesterol level, D esirable <200 mg/dLBorderline high cholesterol 200-239 mg/dLHigh cholesterol >=240 mg/dLRecommendations of the NCEP Adult Treatment Panel for the following risk-cutoff thresholds for the [place] population. Serum or plasma urea nitroge n measurement (mass/volume)Ordered By: Renard Burgos on 08-23-2024 Urea nitrogen [Mass/Vol] 14 mg/dL 4-19 [facility] Sodium levelOrdered By: Lamine Burgos on 08-23-2024 Sodium [Moles/Vol] 141 mmol/L 133-145 [facility] Total proteinOrdered By: Lyubov Burgos on 08-23-2024 Protein [Mass/Vol] 5.7 g/dL Low 5.9-8.4 [facility] Triglycerides measurementOrd ered By: Renard Burgos on 08-23-2024 Triglyceride [Mass/Vol] 198 mg/dL <199 [facility] Comment on above: The drugs N-Acetylcy steine and Metamizole may falsely depress this assay. Normal range: <150 mg/dLBorderline High: 150-199 mg/dLHigh: 200-499 mg/dLVery High: >500 mg/dL White blood cell (WBC) count Ordered By: Renard Burgos on 08-23-2024 WBC (Bld) [#/Vol] 8.6 10*3/uL 4.4-11.0 [facility] Absolute lymphocyte countOrd ered By: Renard Burgos on 08-19-2024 Lymphocytes Auto (Unsp spec) [#/Vol] 1.97 10*3/uL 0.83-4.51 [facility] Absolute neutrophil countOrd ered By: Renard Burgos on 08-19-2024 Neutrophils (Bld) [#/Vol] 5.0 10*3/uL 2.0-7.7 [facility] Automated lymphocyte count a s percentage of total leukocytesOrdered By: Renard Burgos on 08-19-2024 Lymphocytes/100 WBC Auto (Unsp spec) 25.4 % 19-41 [facility] Basophil percentageOrdered B y: Renard Burgos on 08-19-2024 Basophils/100 WBC (Bld) 0.5 % 0-1 [facility] CBC W/Diff, Automatedon 07-31 Absolute Lymph 1.97 X10 3/uL Normal 0.83-4.51 [facility] Comment on above: Order Comment: 109 Performed By: #### L 100.0100 ####[facility] [address] [place], [address] Absolute Neut 5.0 X10 3/uL Normal 2.0-7.7 [facility] Comment on above: Order Comment: 109 Performed By: #### L 100.0100 ####[facility] [address] [place], [address] Basophils/100 WBC (Bld) 0.5 % Normal 0-1 [facility] Comment on above: Order Comment: 109 Performed By: #### L 100.0100 ####[facility] [address] [place], [address] Eosinophils/100 WBC (Bld) 1.0 % Normal 0-5 [facility] Comment on above: Order Comment: 109 Performed By: #### L 100.0100 ####[facility] [address] [place], [address] Erythrocyte distribution width (RBC) [Ratio] 12.7 % Normal 11.6-14.6 [facility] Comment on above: Order Comment: 109 Performed By: #### L 100.0100 ####[facility] [address], [address] Hematocrit (Bld) [Volume fraction] 41.0 % Normal 40-54 [facility] Comment on above: Order Comment: 109 Performed By: #### L 100.0100 ####[facility] [address] [place], [address] Hemoglobin (Bld) [Mass/Vol] 13.6 g/dL Normal 13.0-16.5 [facility] Comment on above: Order Comment: 109 Performed By: #### L 100.0100 ####[facility] [address] [place], [address] IG% 0.400 Normal 0.0-0.9 [facility] Comment on above: Order Comment: 109 Result Comment: IG% - Immature Granulocytes (promyelocytes, myelocytes andmetamyelocytes) > 1% indicates that a LEFT SHIFT is Present. Performed By: #### L 100.0100 ####[facility] [address] [place], [address] Lymphocytes/100 WBC (Bld) 25.4 % Normal 19-41 [facility] Comment on above: Order Comment: 109 Performed By: #### L 100.0100 ####[facility] [address] [place], [address] MCH (RBC) [Entitic mass] 30.2 pg Normal 27.0-32.0 [facility] Comment on above: Order Comment: 109 Performed By: #### L 100.0100 ####[facility] [address] [place], [address] MCHC (RBC) [Mass/Vol] 33.2 g/dL Normal 32-36 [facility] Comment on above: Order Comment: 109 Performed By: #### L 100.0100 ####[facility] [address] [place], [address] MCV (RBC) [Entitic vol] 91.1 fL Normal 80-94 [facility] Comment on above: Order Comment: 109 Performed By: #### L 100.0100 ####[facility] [address] [place], [address] Monocytes/100 WBC (Bld) 8.2 % Normal 0-10 [facility] Comment on above: Order Comment: 109 Performed By: #### L 100.0100 ####[facility] [address] [place], [address] Neutrophils/100 WBC (Bld) 64.5 % Normal 47-70 [facility] Comment on above: Order Comment: 109 Performed By: #### L 100.0100 ####[facility] [address] [place], [address] Nucleated RBC (Bld) [#/Vol] 0 10*3/uL Normal 0-5 [facility] Comment on above: Order Comment: 109 Performed By: #### L 100.0100 ####[facility] [address] [place], [address] Platelet mean volume (Bld) [Entitic vol] 11.1 fL Normal 6.2-12.0 [facility] Comment on above: Order Comment: 109 Performed By: #### L 100.0100 ####[facility] [address] [place], [address] Platelets (Bld) [#/Vol] 207 10*3/uL Normal 150-450 [facility] Comment on above: Order Comment: 109 Performed By: #### L 100.0100 ####[facility] [address] [place], [address] RBC (Bld) [#/Vol] 4.50 10*6/uL Low 4.6-6.2 [facility] Comment on above: Order Comment: 109 Performed By: #### L 100.0100 ####[facility] [address] [place], [address] RDW SD 42.0 fl Normal 35.1-43.9 [facility] Comment on above: Order Comment: 109 Performed By: #### L 100.0100 ####[facility] [address] [place], [address] WBC (Bld) [#/Vol] 7.8 10*3/uL Normal 4.4-11.0 [facility] Comment on above: Order Comment: 109 Performed By: #### L 100.0100 ####[facility] [address] [place], [address] Eosinophil percentageOrdered By: Renard Burgos on 08-19-2024 Eosinophils/100 WBC (Bld) 1.0 % 0-5 [facility] Erythrocyte distribution wid th ratioOrdered By: Renard Burgos on 08-19-2024 Erythrocyte distribution width (RBC) [Ratio] 12.7 % 11.6-14.6 [facility] Erythrocyte distribution wid th standard deviationOrdered By: Renard Burgos on 08-19-2024 Erythrocyte distribution width (RBC) [Ratio] 42.0 fl 35.1-43.9 [facility] Hematocrit Auto (Bld) [Volum e fraction]Ordered By: Renard Burgos on 08-19-2024 Hematocrit (Bld) [Volume fraction] 41.0 % 40-54 [facility] Hemoglobin measurementOrdere d By: Renard Burgos on 08-19-2024 Hemoglobin (Bld) [Mass/Vol] 13.6 g/dL 13.0-16.5 [facility] Immature granulocytes/100 WB C Auto (Bld)Ordered By: Renard Burgos on 08-19-2024 Immature granulocytes/100 WBC (Bld) 0.400 % 0.0-0.9 [facility] Comment on above: IG% - Immature Granu locytes (promyelocytes, myelocytes and metamyelocytes) > 1% indicates that a LEFT SHIFT is Present. MCV (mean corpuscular volume ) determinationOrdered By: Renard Burgos on 08-19-2024 MCV (RBC) [Entitic vol] 91.1 fL 80-94 [facility] Mean corpuscular hemoglobin (MCH) determinationOrdered By: Renard Burgos on 08-19-2024 MCH (RBC) [Entitic mass] 30.2 pg 27.0-32.0 [facility] Mean corpuscular hemoglobin concentration (MCHC) determinationOrdered By: Renard Burgos on 08-19-2024 MCHC (RBC) [Mass/Vol] 33.2 g/dL 32-36 [facility] Mean platelet volume determi nationOrdered By: Renard Burgos on 08-19-2024 Platelet mean volume (Bld) [Entitic vol] 11.1 fL 6.2-12.0 [facility] Monocyte percentageOrdered B y: Renard Burgos on 08-19-2024 Monocytes/100 WBC (Bld) 8.2 % 0-10 [facility] Neutrophil percentageOrdered By: Renard Burgos on 08-19-2024 Neutrophils/100 WBC (Bld) 64.5 % 47-70 [facility] Nucleated red blood cell per centageOrdered By: Renard Burgos on 08-19-2024 Nucleated RBC/100 WBC (Bld) [Ratio] 0 % 0-5 [facility] Platelet countOrdered By: Garrick Bhatt on 08-19-2024 Platelets (Bld) [#/Vol] 207 10*3/uL 150-450 [facility] RBC Auto (Bld) [#/Vol]Ordere d By: Renard Burgos on 08-19-2024 RBC (Bld) [#/Vol] 4.50 10*6/uL Low 4.6-6.2 [facility] White blood cell (WBC) count Ordered By: Renard Burgos on 08-19-2024 WBC (Bld) [#/Vol] 7.8 10*3/uL 4.4-11.0 [facility] Absolute lymphocyte countOrd ered By: Renard Burgos on 08-12-2024 Lymphocytes Auto (Unsp spec) [#/Vol] 2.09 10*3/uL 0.83-4.51 [facility] Absolute neutrophil countOrd ered By: Renard Burgos on 08-12-2024 Neutrophils (Bld) [#/Vol] 5.0 10*3/uL 2.0-7.7 [facility] Automated lymphocyte count a s percentage of total leukocytesOrdered By: Renard Burgos on 08-12-2024 Lymphocytes/100 WBC Auto (Unsp spec) 27.0 % 19-41 [facility] Basophil percentageOrdered B y: Renard Burgos on 08-12-2024 Basophils/100 WBC (Bld) 0.5 % 0-1 [facility] CBC W/Diff, Automatedon 07-30 Absolute Lymph 2.09 X10 3/uL Normal 0.83-4.51 [facility] Comment on above: Order Comment: 109.1 Performed By: #### L 100.0100 ####[facility] [address] [place], [place], [address] Absolute Neut 5.0 X10 3/uL Normal 2.0-7.7 [facility] Comment on above: Order Comment: 109.1 Performed By: #### L 100.0100 ####[facility] [address] [place], [address] Basophils/100 WBC (Bld) 0.5 % Normal 0-1 [facility] Comment on above: Order Comment: 109.1 Performed By: #### L 100.0100 ####[facility] [address], [address] Eosinophils/100 WBC (Bld) 0.9 % Normal 0-5 [facility] Comment on above: Order Comment: 109.1 Performed By: #### L 100.0100 ####[facility] [address] [place], [address] Erythrocyte distribution width (RBC) [Ratio] 12.7 % Normal 11.6-14.6 [facility] Comment on above: Order Comment: 109.1 Performed By: #### L 100.0100 ####[facility] [address] [place], [address] Hematocrit (Bld) [Volume fraction] 41.9 % Normal 40-54 [facility] Comment on above: Order Comment: 109.1 Performed By: #### L 100.0100 ####[facility] [address] [place], [address] Hemoglobin (Bld) [Mass/Vol] 14.1 g/dL Normal 13.0-16.5 [facility] Comment on above: Order Comment: 109.1 Performed By: #### L 100.0100 ####[facility] [address] [place], [address] IG% 0.300 Normal 0.0-0.9 [facility] Comment on above: Order Comment: 109.1 Result Comment: IG% - Immature Granulocytes (promyelocytes, myelocytes andmetamyelocytes) > 1% indicates that a LEFT SHIFT is Present. Performed By: #### L 100.0100 ####[facility] [address] [place], [address] Lymphocytes/100 WBC (Bld) 27.0 % Normal 19-41 [facility] Comment on above: Order Comment: 109.1 Performed By: #### L 100.0100 ####[facility] [address] [place], [address] MCH (RBC) [Entitic mass] 30.3 pg Normal 27.0-32.0 [facility] Comment on above: Order Comment: 109.1 Performed By: #### L 100.0100 ####[facility] [address] [place], [address] MCHC (RBC) [Mass/Vol] 33.7 g/dL Normal 32-36 [facility] Comment on above: Order Comment: 109.1 Performed By: #### L 100.0100 ####[facility] [address] [place], [address] MCV (RBC) [Entitic vol] 90.1 fL Normal 80-94 [facility] Comment on above: Order Comment: 109.1 Performed By: #### L 100.0100 ####[facility] [address] [place], [address] Monocytes/100 WBC (Bld) 7.1 % Normal 0-10 [facility] Comment on above: Order Comment: 109.1 Performed By: #### L 100.0100 ####[facility] [address] [place], [address] Neutrophils/100 WBC (Bld) 64.2 % Normal 47-70 [facility] Comment on above: Order Comment: 109.1 Performed By: #### L 100.0100 ####[facility] [address] [place], [address] Nucleated RBC (Bld) [#/Vol] 0 10*3/uL Normal 0-5 [facility] Comment on above: Order Comment: 109.1 Performed By: #### L 100.0100 ####[facility] [address] [place], [address] Platelet mean volume (Bld) [Entitic vol] 11.2 fL Normal 6.2-12.0 [facility] Comment on above: Order Comment: 109.1 Performed By: #### L 100.0100 ####[facility] [address] [place], [address] Platelets (Bld) [#/Vol] 188 10*3/uL Normal 150-450 [facility] Comment on above: Order Comment: 109.1 Performed By: #### L 100.0100 ####[facility] [address] [place], [address] RBC (Bld) [#/Vol] 4.65 10*6/uL Normal 4.6-6.2 [facility] Comment on above: Order Comment: 109.1 Performed By: #### L 100.0100 ####[facility] [address] [place], [address] RDW SD 41.6 fl Normal 35.1-43.9 [facility] Comment on above: Order Comment: 109.1 Performed By: #### L 100.0100 ####[facility] [address] [place], [address] WBC (Bld) [#/Vol] 7.8 10*3/uL Normal 4.4-11.0 [facility] Comment on above: Order Comment: 109.1 Performed By: #### L 100.0100 ####[facility] [address] [place], [address] Eosinophil percentageOrdered By: Renard Burgos on 08-12-2024 Eosinophils/100 WBC (Bld) 0.9 % 0-5 [facility] Erythrocyte distribution wid th (RBC) [Ratio]Ordered By: Renard Burgos on 08-12-2024 Erythrocyte distribution width (RBC) [Entitic vol] 41.6 fL 35.1-43.9 [facility] Erythrocyte distribution wid th ratioOrdered By: Renard Burgos on 08-12-2024 Erythrocyte distribution width (RBC) [Ratio] 12.7 % 11.6-14.6 [facility] Erythrocyte distribution wid th standard deviationOrdered By: Renard Burgos on 08-12-2024 Erythrocyte distribution width (RBC) [Ratio] 41.6 fl 35.1-43.9 [facility] Hematocrit Auto (Bld) [Volum e fraction]Ordered By: Renard Burgos on 08-12-2024 Hematocrit (Bld) [Volume fraction] 41.9 % 40-54 [facility] Hemoglobin measurementOrdere d By: Renard Burgos on 08-12-2024 Hemoglobin (Bld) [Mass/Vol] 14.1 g/dL 13.0-16.5 [facility] Immature granulocytes/100 WB C Auto (Bld)Ordered By: Renard Burgos on 08-12-2024 Immature granulocytes/100 WBC (Bld) 0.300 % 0.0-0.9 [facility] Comment on above: IG% - Immature Granu locytes (promyelocytes, myelocytes and metamyelocytes) > 1% indicates that a LEFT SHIFT is Present. Lymphocytes Auto (Unsp spec) [#/Vol]Ordered By: Renard Burgos on 08-12-2024 Lymphocytes (Bld) [#/Vol] 2.09 10*3/uL 0.83-4.51 [facility] Lymphocytes/100 WBC Auto (Un sp spec)Ordered By: Renard Burgos on 08-12-2024 Lymphocytes/100 WBC (Bld) 27.0 % 19-41 [facility] MCV (mean corpuscular volume ) determinationOrdered By: Renard Burgos on 08-12-2024 MCV (RBC) [Entitic vol] 90.1 fL 80-94 [facility] Mean corpuscular hemoglobin (MCH) determinationOrdered By: Renard Burgos on 08-12-2024 MCH (RBC) [Entitic mass] 30.3 pg 27.0-32.0 [facility] Mean corpuscular hemoglobin concentration (MCHC) determinationOrdered By: Renard Burgos on 08-12-2024 MCHC (RBC) [Mass/Vol] 33.7 g/dL 32-36 [facility] Mean platelet volume determi nationOrdered By: Renard Burgos on 08-12-2024 Platelet mean volume (Bld) [Entitic vol] 11.2 fL 6.2-12.0 [facility] Monocyte percentageOrdered B y: Renard Burgos on 08-12-2024 Monocytes/100 WBC (Bld) 7.1 % 0-10 [facility] Neutrophil percentageOrdered By: Renard Burgos on 08-12-2024 Neutrophils/100 WBC (Bld) 64.2 % 47-70 [facility] Nucleated red blood cell per centageOrdered By: Renard Burgos on 08-12-2024 Nucleated RBC/100 WBC (Bld) [Ratio] 0 % 0-5 [facility] Platelet countOrdered By: Garrick Bhatt on 08-12-2024 Platelets (Bld) [#/Vol] 188 10*3/uL 150-450 [facility] RBC Auto (Bld) [#/Vol]Ordere d By: Renard Burgos on 08-12-2024 RBC (Bld) [#/Vol] 4.65 10*6/uL 4.6-6.2 [facility] White blood cell (WBC) count Ordered By: Renard Burgos on 08-12-2024 WBC (Bld) [#/Vol] 7.8 10*3/uL 4.4-11.0 [facility] Absolute lymphocyte countOrd ered By: Renard Burgos on 08-05-2024 Lymphocytes Auto (Unsp spec) [#/Vol] 2.31 10*3/uL 0.83-4.51 [facility] Absolute neutrophil countOrd ered By: Renard Burgos on 08-05-2024 Neutrophils (Bld) [#/Vol] 5.4 10*3/uL 2.0-7.7 [facility] Automated lymphocyte count a s percentage of total leukocytesOrdered By: Renard Burgos on 08-05-2024 Lymphocytes/100 WBC Auto (Unsp spec) 26.9 % 19-41 [facility] Basophil percentageOrdered B y: Renard Burgos on 08-05-2024 Basophils/100 WBC (Bld) 0.6 % 0-1 [facility] CBC W/Diff, Automatedon - Absolute Lymph 2.31 X10 3/uL Normal 0.83-4.51 [facility] Comment on above: Order Comment: 109.1 Performed By: #### L 100.0100 ####[facility] [address] [place], [address] Absolute Neut 5.4 X10 3/uL Normal 2.0-7.7 [facility] Comment on above: Order Comment: 109.1 Performed By: #### L 100.0100 ####[facility] [address] [place], [address] Basophils/100 WBC (Bld) 0.6 % Normal 0-1 [facility] Comment on above: Order Comment: 109.1 Performed By: #### L 100.0100 ####[facility] [address] [place], [address] Eosinophils/100 WBC (Bld) 0.8 % Normal 0-5 [facility] Comment on above: Order Comment: 109.1 Performed By: #### L 100.0100 ####[facility] [address] [place], [address] Erythrocyte distribution width (RBC) [Ratio] 12.7 % Normal 11.6-14.6 [facility] Comment on above: Order Comment: 109.1 Performed By: #### L 100.0100 ####[facility] [address] [place], [address] Hematocrit (Bld) [Volume fraction] 41.6 % Normal 40-54 [facility] Comment on above: Order Comment: 109.1 Performed By: #### L 100.0100 ####[facility] [address] [place], [address] Hemoglobin (Bld) [Mass/Vol] 13.7 g/dL Normal 13.0-16.5 [facility] Comment on above: Order Comment: 109.1 Performed By: #### L 100.0100 ####[facility] [address] [place], [address] IG% 0.300 Normal 0.0-0.9 [facility] Comment on above: Order Comment: 109.1 Result Comment: IG% - Immature Granulocytes (promyelocytes, myelocytes andmetamyelocytes) > 1% indicates that a LEFT SHIFT is Present. Performed By: #### L 100.0100 ####[facility] [address] [place], [address] Lymphocytes/100 WBC (Bld) 26.9 % Normal 19-41 [facility] Comment on above: Order Comment: 109.1 Performed By: #### L 100.0100 ####[facility] [address] [place], [address] MCH (RBC) [Entitic mass] 30.1 pg Normal 27.0-32.0 [facility] Comment on above: Order Comment: 109.1 Performed By: #### L 100.0100 ####[facility] [address] [place], [address] MCHC (RBC) [Mass/Vol] 32.9 g/dL Normal 32-36 [facility] Comment on above: Order Comment: 109.1 Performed By: #### L 100.0100 ####[facility] [address] [place], [address] MCV (RBC) [Entitic vol] 91.4 fL Normal 80-94 [facility] Comment on above: Order Comment: 109.1 Performed By: #### L 100.0100 ####[facility] [address] [place], [address] Monocytes/100 WBC (Bld) 8.3 % Normal 0-10 [facility] Comment on above: Order Comment: 109.1 Performed By: #### L 100.0100 ####[facility] [address] [place], [address] Neutrophils/100 WBC (Bld) 63.1 % Normal 47-70 [facility] Comment on above: Order Comment: 109.1 Performed By: #### L 100.0100 ####[facility] [address] [place], [address] Nucleated RBC (Bld) [#/Vol] 0 10*3/uL Normal 0-5 [facility] Comment on above: Order Comment: 109.1 Performed By: #### L 100.0100 ####[facility] [address] [place], [address] Platelet mean volume (Bld) [Entitic vol] 11.1 fL Normal 6.2-12.0 [facility] Comment on above: Order Comment: 109.1 Performed By: #### L 100.0100 ####[facility] [address] [place], [address] Platelets (Bld) [#/Vol] 199 10*3/uL Normal 150-450 [facility] Comment on above: Order Comment: 109.1 Performed By: #### L 100.0100 ####[facility] [address] [place], [address] RBC (Bld) [#/Vol] 4.55 10*6/uL Low 4.6-6.2 [facility] Comment on above: Order Comment: 109.1 Performed By: #### L 100.0100 ####[facility] [address] [place], [address] RDW SD 42.5 fl Normal 35.1-43.9 [facility] Comment on above: Order Comment: 109.1 Performed By: #### L 100.0100 ####[facility] [address] [place], [address] WBC (Bld) [#/Vol] 8.6 10*3/uL Normal 4.4-11.0 [facility] Comment on above: Order Comment: 109.1 Performed By: #### L 100.0100 ####[facility] [address] [place], [address] Eosinophil percentageOrdered By: Renard Burgos on 08-05-2024 Eosinophils/100 WBC (Bld) 0.8 % 0-5 [facility] Erythrocyte distribution wid th (RBC) [Ratio]Ordered By: Renard Burgos on 08-05-2024 Erythrocyte distribution width (RBC) [Entitic vol] 42.5 fL 35.1-43.9 [facility] Erythrocyte distribution wid th ratioOrdered By: Renard Burgos on 08-05-2024 Erythrocyte distribution width (RBC) [Ratio] 12.7 % 11.6-14.6 [facility] Erythrocyte distribution wid th standard deviationOrdered By: Renard Burgos on 08-05-2024 Erythrocyte distribution width (RBC) [Ratio] 42.5 fl 35.1-43.9 [facility] Hematocrit Auto (Bld) [Volum e fraction]Ordered By: Renard Burgos on 08-05-2024 Hematocrit (Bld) [Volume fraction] 41.6 % 40-54 [facility] Hemoglobin measurementOrdere d By: Renard Burgos on 08-05-2024 Hemoglobin (Bld) [Mass/Vol] 13.7 g/dL 13.0-16.5 [facility] Immature granulocytes/100 WB C Auto (Bld)Ordered By: Renard Burgos on 08-05-2024 Immature granulocytes/100 WBC (Bld) 0.300 % 0.0-0.9 [facility] Comment on above: IG% - Immature Granu locytes (promyelocytes, myelocytes and metamyelocytes) > 1% indicates that a LEFT SHIFT is Present. Lymphocytes Auto (Unsp spec) [#/Vol]Ordered By: Renard Burgos on 08-05-2024 Lymphocytes (Bld) [#/Vol] 2.31 10*3/uL 0.83-4.51 [facility] Lymphocytes/100 WBC Auto (Un sp spec)Ordered By: Renard Burgos on 08-05-2024 Lymphocytes/100 WBC (Bld) 26.9 % 19-41 [facility] MCV (mean corpuscular volume ) determinationOrdered By: Renard Burgos on 08-05-2024 MCV (RBC) [Entitic vol] 91.4 fL 80-94 [facility] Mean corpuscular hemoglobin (MCH) determinationOrdered By: Renard Burgos on 08-05-2024 MCH (RBC) [Entitic mass] 30.1 pg 27.0-32.0 [facility] Mean corpuscular hemoglobin concentration (MCHC) determinationOrdered By: Renard Burgos on 08-05-2024 MCHC (RBC) [Mass/Vol] 32.9 g/dL 32-36 [facility] Mean platelet volume determi nationOrdered By: Renard Burgos on 08-05-2024 Platelet mean volume (Bld) [Entitic vol] 11.1 fL 6.2-12.0 [facility] Monocyte percentageOrdered B y: Renard Burgos on 08-05-2024 Monocytes/100 WBC (Bld) 8.3 % 0-10 [facility] Neutrophil percentageOrdered By: Renard Burgos on 08-05-2024 Neutrophils/100 WBC (Bld) 63.1 % 47-70 [facility] Nucleated red blood cell per centageOrdered By: Renard Burgos on 08-05-2024 Nucleated RBC/100 WBC (Bld) [Ratio] 0 % 0-5 [facility] Platelet countOrdered By: Garrick Bhatt on 08-05-2024 Platelets (Bld) [#/Vol] 199 10*3/uL 150-450 [facility] RBC Auto (Bld) [#/Vol]Ordere d By: Renard Burgos on 08-05-2024 RBC (Bld) [#/Vol] 4.55 10*6/uL Low 4.6-6.2 [facility] White blood cell (WBC) count Ordered By: Renard Burgos on 08-05-2024 WBC (Bld) [#/Vol] 8.6 10*3/uL 4.4-11.0 [facility] Absolute lymphocyte countOrd ered By: Renard Burgos on 07-29-2024 Lymphocytes Auto (Unsp spec) [#/Vol] 1.93 10*3/uL 0.83-4.51 [facility] Absolute neutrophil countOrd ered By: Renard Burgos on 07-29-2024 Neutrophils (Bld) [#/Vol] 6.8 10*3/uL 2.0-7.7 [facility] Automated lymphocyte count a s percentage of total leukocytesOrdered By: Renard Burgos on 07-29-2024 Lymphocytes/100 WBC Auto (Unsp spec) 20.2 % 19-41 [facility] Basophil percentageOrdered B y: Renard Burgos on 07-29-2024 Basophils/100 WBC (Bld) 0.5 % 0-1 [facility] CBC W/Diff, Automatedon 07-01 Absolute Lymph 1.93 X10 3/uL Normal 0.83-4.51 [facility] Comment on above: Order Comment: 109-1 Performed By: #### L 100.0100 ####[facility] [address] [place], [address] Absolute Neut 6.8 X10 3/uL Normal 2.0-7.7 [facility] Comment on above: Order Comment: 109-1 Performed By: #### L 100.0100 ####[facility] [address] [place], [address] Basophils/100 WBC (Bld) 0.5 % Normal 0-1 [facility] Comment on above: Order Comment: 109-1 Performed By: #### L 100.0100 ####[facility] [address] [place], [address] Eosinophils/100 WBC (Bld) 0.7 % Normal 0-5 [facility] Comment on above: Order Comment: 109-1 Performed By: #### L 100.0100 ####[facility] [address] [place], [address] Erythrocyte distribution width (RBC) [Ratio] 12.8 % Normal 11.6-14.6 [facility] Comment on above: Order Comment: 109-1 Performed By: #### L 100.0100 ####[facility] [address] [place], [address] Hematocrit (Bld) [Volume fraction] 40.7 % Normal 40-54 [facility] Comment on above: Order Comment: 109-1 Performed By: #### L 100.0100 ####[facility] [address] [place], [address] Hemoglobin (Bld) [Mass/Vol] 13.5 g/dL Normal 13.0-16.5 [facility] Comment on above: Order Comment: 109-1 Performed By: #### L 100.0100 ####[facility] [address] [place], [address] IG% 0.400 Normal 0.0-0.9 [facility] Comment on above: Order Comment: 109-1 Result Comment: IG% - Immature Granulocytes (promyelocytes, myelocytes andmetamyelocytes) > 1% indicates that a LEFT SHIFT is Present. Performed By: #### L 100.0100 ####[facility] [address] [place], [address] Lymphocytes/100 WBC (Bld) 20.2 % Normal 19-41 [facility] Comment on above: Order Comment: 109-1 Performed By: #### L 100.0100 ####[facility] [address] [place], [address] MCH (RBC) [Entitic mass] 29.9 pg Normal 27.0-32.0 [facility] Comment on above: Order Comment: 109-1 Performed By: #### L 100.0100 ####[facility] [address] [place], [address] MCHC (RBC) [Mass/Vol] 33.2 g/dL Normal 32-36 [facility] Comment on above: Order Comment: 109-1 Performed By: #### L 100.0100 ####[facility] [address] [place], [address] MCV (RBC) [Entitic vol] 90.0 fL Normal 80-94 [facility] Comment on above: Order Comment: 109-1 Performed By: #### L 100.0100 ####[facility] [address] [place], [address] Monocytes/100 WBC (Bld) 7.1 % Normal 0-10 [facility] Comment on above: Order Comment: 109-1 Performed By: #### L 100.0100 ####[facility] [address] [place], [address] Neutrophils/100 WBC (Bld) 71.1 % High 47-70 [facility] Comment on above: Order Comment: 109-1 Performed By: #### L 100.0100 ####[facility] [address] [place], [address] Nucleated RBC (Bld) [#/Vol] 0 10*3/uL Normal 0-5 [facility] Comment on above: Order Comment: 109-1 Performed By: #### L 100.0100 ####[facility] [address] [place], [address] Platelet mean volume (Bld) [Entitic vol] 11.2 fL Normal 6.2-12.0 [facility] Comment on above: Order Comment: 109-1 Performed By: #### L 100.0100 ####[facility] [address] [place], [address] Platelets (Bld) [#/Vol] 218 10*3/uL Normal 150-450 [facility] Comment on above: Order Comment: 109-1 Performed By: #### L 100.0100 ####[facility] [address] [place], [address] RBC (Bld) [#/Vol] 4.52 10*6/uL Low 4.6-6.2 [facility] Comment on above: Order Comment: 109-1 Performed By: #### L 100.0100 ####[facility] [address] [place], [address] RDW SD 41.9 fl Normal 35.1-43.9 [facility] Comment on above: Order Comment: 109-1 Performed By: #### L 100.0100 ####[facility] [address] [place], [address] WBC (Bld) [#/Vol] 9.6 10*3/uL Normal 4.4-11.0 [facility] Comment on above: Order Comment: 109-1 Performed By: #### L 100.0100 ####[facility] [address] [place], [address] Eosinophil percentageOrdered By: Renard Burgos on 07-29-2024 Eosinophils/100 WBC (Bld) 0.7 % 0-5 [facility] Erythrocyte distribution wid th ratioOrdered By: Reanrd Burgos on 07-29-2024 Erythrocyte distribution width (RBC) [Ratio] 12.8 % 11.6-14.6 [facility] Erythrocyte distribution wid th standard deviationOrdered By: Renard Burgos on 07-29-2024 Erythrocyte distribution width (RBC) [Entitic vol] 41.9 fL 35.1-43.9 [facility] Erythrocyte distribution width (RBC) [Ratio] 41.9 fl 35.1-43.9 [facility] Hematocrit Auto (Bld) [Volum e fraction]Ordered By: Renard Burgos on 07-29-2024 Hematocrit (Bld) [Volume fraction] 40.7 % 40-54 [facility] Hemoglobin measurementOrdere d By: Renard Burgos on 07-29-2024 Hemoglobin (Bld) [Mass/Vol] 13.5 g/dL 13.0-16.5 [facility] Immature granulocytes/100 WB C Auto (Bld)Ordered By: Renard Burgos on 07-29-2024 Immature granulocytes/100 WBC (Bld) 0.400 % 0.0-0.9 [facility] Comment on above: IG% - Immature Granu locytes (promyelocytes, myelocytes and metamyelocytes) > 1% indicates that a LEFT SHIFT is Present. Lymphocytes Auto (Unsp spec) [#/Vol]Ordered By: Renard Burgos on 07-29-2024 Lymphocytes (Bld) [#/Vol] 1.93 10*3/uL 0.83-4.51 [facility] Lymphocytes/100 WBC Auto (Un sp spec)Ordered By: Renard Burgos on 07-29-2024 Lymphocytes/100 WBC (Bld) 20.2 % 19-41 [facility] MCV (mean corpuscular volume ) determinationOrdered By: Renard Burgos on 07-29-2024 MCV (RBC) [Entitic vol] 90.0 fL 80-94 [facility] Mean corpuscular hemoglobin (MCH) determinationOrdered By: Renard Burgos on 07-29-2024 MCH (RBC) [Entitic mass] 29.9 pg 27.0-32.0 [facility] Mean corpuscular hemoglobin concentration (MCHC) determinationOrdered By: Renard Burgos on 07-29-2024 MCHC (RBC) [Mass/Vol] 33.2 g/dL 32-36 [facility] Mean platelet volume determi nationOrdered By: Renard Burgos on 07-29-2024 Platelet mean volume (Bld) [Entitic vol] 11.2 fL 6.2-12.0 [facility] Monocyte percentageOrdered B y: Renard Burgos on 07-29-2024 Monocytes/100 WBC (Bld) 7.1 % 0-10 [facility] Neutrophil percentageOrdered By: Renard Burgos on 07-29-2024 Neutrophils/100 WBC (Bld) 71.1 % High 47-70 [facility] Nucleated red blood cell per centageOrdered By: Renard Burgos on 07-29-2024 Nucleated RBC/100 WBC (Bld) [Ratio] 0 % 0-5 [facility] Platelet countOrdered By: Garrick Bhatt on 07-29-2024 Platelets (Bld) [#/Vol] 218 10*3/uL 150-450 [facility] RBC Auto (Bld) [#/Vol]Ordere d By: Renard Burgos on 07-29-2024 RBC (Bld) [#/Vol] 4.52 10*6/uL Low 4.6-6.2 [facility] White blood cell (WBC) count Ordered By: Renard Burgos on 07-29-2024 WBC (Bld) [#/Vol] 9.6 10*3/uL 4.4-11.0 [facility] Absolute lymphocyte countOrd ered By: Renard Burgos on 07-22-2024 Lymphocytes Auto (Unsp spec) [#/Vol] 1.90 10*3/uL 0.83-4.51 [facility] Absolute neutrophil countOrd ered By: Renard Burgos on 07-22-2024 Neutrophils (Bld) [#/Vol] 5.2 10*3/uL 2.0-7.7 [facility] Automated lymphocyte count a s percentage of total leukocytesOrdered By: Renard Burgos on 07-22-2024 Lymphocytes/100 WBC Auto (Unsp spec) 23.9 % 19-41 [facility] Basophil percentageOrdered B y: Renard Burgos on 07-22-2024 Basophils/100 WBC (Bld) 0.6 % 0-1 [facility] CBC W/Diff, Automatedon 06-30 Absolute Lymph 1.90 X10 3/uL Normal 0.83-4.51 [facility] Comment on above: Order Comment: 109.1 Performed By: #### L 100.0100 ####[facility] [address] [place], [place], [address] Absolute Neut 5.2 X10 3/uL Normal 2.0-7.7 [facility] Comment on above: Order Comment: 109.1 Performed By: #### L 100.0100 ####[facility] [address] [place], [address] Basophils/100 WBC (Bld) 0.6 % Normal 0-1 [facility] Comment on above: Order Comment: 109.1 Performed By: #### L 100.0100 ####[facility] [address] [place], [address] Eosinophils/100 WBC (Bld) 0.9 % Normal 0-5 [facility] Comment on above: Order Comment: 109.1 Performed By: #### L 100.0100 ####[facility] [address] [place], [address] Erythrocyte distribution width (RBC) [Ratio] 12.9 % Normal 11.6-14.6 [facility] Comment on above: Order Comment: 109.1 Performed By: #### L 100.0100 ####[facility] [address] [place], [address] Hematocrit (Bld) [Volume fraction] 41.4 % Normal 40-54 [facility] Comment on above: Order Comment: 109.1 Performed By: #### L 100.0100 ####[facility] [address] [place], [address] Hemoglobin (Bld) [Mass/Vol] 13.5 g/dL Normal 13.0-16.5 [facility] Comment on above: Order Comment: 109.1 Performed By: #### L 100.0100 ####[facility] [address] [place], [address] IG% 0.300 Normal 0.0-0.9 [facility] Comment on above: Order Comment: 109.1 Result Comment: IG% - Immature Granulocytes (promyelocytes, myelocytes andmetamyelocytes) > 1% indicates that a LEFT SHIFT is Present. Performed By: #### L 100.0100 ####[facility] [address] [place], [address] Lymphocytes/100 WBC (Bld) 23.9 % Normal 19-41 [facility] Comment on above: Order Comment: 109.1 Performed By: #### L 100.0100 ####[facility] [address] [place], [address] MCH (RBC) [Entitic mass] 29.8 pg Normal 27.0-32.0 [facility] Comment on above: Order Comment: 109.1 Performed By: #### L 100.0100 ####[facility] [address] [place], [address] MCHC (RBC) [Mass/Vol] 32.6 g/dL Normal 32-36 [facility] Comment on above: Order Comment: 109.1 Performed By: #### L 100.0100 ####[facility] [address] [place], [address] MCV (RBC) [Entitic vol] 91.4 fL Normal 80-94 [facility] Comment on above: Order Comment: 109.1 Performed By: #### L 100.0100 ####[facility] [address] [place], [address] Monocytes/100 WBC (Bld) 9.4 % Normal 0-10 [facility] Comment on above: Order Comment: 109.1 Performed By: #### L 100.0100 ####[facility] [address] [place], [address] Neutrophils/100 WBC (Bld) 64.9 % Normal 47-70 [facility] Comment on above: Order Comment: 109.1 Performed By: #### L 100.0100 ####[facility] [address] [place], [address] Nucleated RBC (Bld) [#/Vol] 0 10*3/uL Normal 0-5 [facility] Comment on above: Order Comment: 109.1 Performed By: #### L 100.0100 ####[facility] [address] [place], [address] Platelet mean volume (Bld) [Entitic vol] 11.5 fL Normal 6.2-12.0 [facility] Comment on above: Order Comment: 109.1 Performed By: #### L 100.0100 ####[facility] [address] [place], [address] Platelets (Bld) [#/Vol] 202 10*3/uL Normal 150-450 [facility] Comment on above: Order Comment: 109.1 Performed By: #### L 100.0100 ####[facility] [address] [place], [address] RBC (Bld) [#/Vol] 4.53 10*6/uL Low 4.6-6.2 [facility] Comment on above: Order Comment: 109.1 Performed By: #### L 100.0100 ####[facility] [address] [place], [address] RDW SD 42.7 fl Normal 35.1-43.9 [facility] Comment on above: Order Comment: 109.1 Performed By: #### L 100.0100 ####[facility] [address] [place], [address] WBC (Bld) [#/Vol] 8.0 10*3/uL Normal 4.4-11.0 [facility] Comment on above: Order Comment: 109.1 Performed By: #### L 100.0100 ####[facility] [address] [place], [address] Eosinophil percentageOrdered By: Renard Burgos on 07-22-2024 Eosinophils/100 WBC (Bld) 0.9 % 0-5 [facility] Erythrocyte distribution wid th ratioOrdered By: Renard Burgos on 07-22-2024 Erythrocyte distribution width (RBC) [Ratio] 12.9 % 11.6-14.6 [facility] Erythrocyte distribution wid th standard deviationOrdered By: Renard Burgos on 07-22-2024 Erythrocyte distribution width (RBC) [Entitic vol] 42.7 fL 35.1-43.9 [facility] Erythrocyte distribution width (RBC) [Ratio] 42.7 fl 35.1-43.9 [facility] Hematocrit Auto (Bld) [Volum e fraction]Ordered By: Renard Burgos on 07-22-2024 Hematocrit (Bld) [Volume fraction] 41.4 % 40-54 [facility] Hemoglobin measurementOrdere d By: Renard Burgos on 07-22-2024 Hemoglobin (Bld) [Mass/Vol] 13.5 g/dL 13.0-16.5 [facility] Immature granulocytes/100 WB C Auto (Bld)Ordered By: Renard Burgos on 07-22-2024 Immature granulocytes/100 WBC (Bld) 0.300 % 0.0-0.9 [facility] Comment on above: IG% - Immature Granu locytes (promyelocytes, myelocytes and metamyelocytes) > 1% indicates that a LEFT SHIFT is Present. Lymphocytes Auto (Unsp spec) [#/Vol]Ordered By: Renard Burgos on 07-22-2024 Lymphocytes (Bld) [#/Vol] 1.90 10*3/uL 0.83-4.51 [facility] Lymphocytes/100 WBC Auto (Un sp spec)Ordered By: Renard Burgos on 07-22-2024 Lymphocytes/100 WBC (Bld) 23.9 % 19-41 [facility] MCV (mean corpuscular volume ) determinationOrdered By: Renard Burgos on 07-22-2024 MCV (RBC) [Entitic vol] 91.4 fL 80-94 [facility] Mean corpuscular hemoglobin (MCH) determinationOrdered By: Renard Burgos on 07-22-2024 MCH (RBC) [Entitic mass] 29.8 pg 27.0-32.0 [facility] Mean corpuscular hemoglobin concentration (MCHC) determinationOrdered By: Renard Burgos on 07-22-2024 MCHC (RBC) [Mass/Vol] 32.6 g/dL 32-36 [facility] Mean platelet volume determi nationOrdered By: Renard Burgos on 07-22-2024 Platelet mean volume (Bld) [Entitic vol] 11.5 fL 6.2-12.0 [facility] Monocyte percentageOrdered B y: Renard Burgos on 07-22-2024 Monocytes/100 WBC (Bld) 9.4 % 0-10 [facility] Neutrophil percentageOrdered By: Renard Burgos on 07-22-2024 Neutrophils/100 WBC (Bld) 64.9 % 47-70 [facility] Nucleated red blood cell per centageOrdered By: Renard Burgos on 07-22-2024 Nucleated RBC/100 WBC (Bld) [Ratio] 0 % 0-5 [facility] Platelet countOrdered By: Garrick Bhatt on 07-22-2024 Platelets (Bld) [#/Vol] 202 10*3/uL 150-450 [facility] RBC Auto (Bld) [#/Vol]Ordere d By: Renard Burgos on 07-22-2024 RBC (Bld) [#/Vol] 4.53 10*6/uL Low 4.6-6.2 [facility] White blood cell (WBC) count Ordered By: Renard Burgos on 07-22-2024 WBC (Bld) [#/Vol] 8.0 10*3/uL 4.4-11.0 [facility] L506.1001on 07-16-2024 Vitamin D 25-OH 21.8 ng/mL Low 30-100 [facility] Comment on above: Order Comment: 109 Result Comment: Edilma min D StatusDeficiency: <20 ng/mL (50nmol/L)Insufficiency: 20-30 ng/mL (50-75 nmol/L)Sufficiency: 30-100 ng/mL (75-250 nmol/L)Toxicity: >100 ng/mL (>250 nmol/L) Performed By: #### L 506.1001 ####[facility] [address] [place], [address] Vitamin D, 25-hydroxyOrdered By: Renard Burgos on 07-16-2024 Vitamin D 25-Hydroxy 21.8 ng/mL Low 30-100 [facility] Comment on above: Vitamin D StatusDefi ciency: <20 ng/mL (50nmol/L)Insufficiency: 20-30 ng/mL (50-75 nmol/L)Sufficiency: 30-100 ng/mL (75-250 nmol/L)Toxicity: >100 ng/mL (>250 nmol/L) Absolute lymphocyte countOrd ered By: Renard Burgos on 07-15-2024 Lymphocytes Auto (Unsp spec) [#/Vol] 2.10 10*3/uL 0.83-4.51 [facility] Absolute neutrophil countOrd ered By: Renard Burgos on 07-15-2024 Neutrophils (Bld) [#/Vol] 6.9 10*3/uL 2.0-7.7 [facility] Automated lymphocyte count a s percentage of total leukocytesOrdered By: Renard Burgos on 07-15-2024 Lymphocytes/100 WBC Auto (Unsp spec) 21.0 % 19-41 [facility] Basophil percentageOrdered B y: Renard Burgos on 07-15-2024 Basophils/100 WBC (Bld) 0.5 % 0-1 [facility] CBC W/Diff, Automatedon 06-29 Absolute Lymph 2.10 X10 3/uL Normal 0.83-4.51 [facility] Comment on above: Order Comment: 109.1 Performed By: #### L 100.0100 ####[facility] [address] [place], [address] Absolute Neut 6.9 X10 3/uL Normal 2.0-7.7 [facility] Comment on above: Order Comment: 109.1 Performed By: #### L 100.0100 ####[facility] [address] [place], [address] Basophils/100 WBC (Bld) 0.5 % Normal 0-1 [facility] Comment on above: Order Comment: 109.1 Performed By: #### L 100.0100 ####[facility] [address] [place], [address] Eosinophils/100 WBC (Bld) 1.2 % Normal 0-5 [facility] Comment on above: Order Comment: 109.1 Performed By: #### L 100.0100 ####[facility] [address] [place], [address] Erythrocyte distribution width (RBC) [Ratio] 12.9 % Normal 11.6-14.6 [facility] Comment on above: Order Comment: 109.1 Performed By: #### L 100.0100 ####[facility] [address] [place], [address] Hematocrit (Bld) [Volume fraction] 41.0 % Normal 40-54 [facility] Comment on above: Order Comment: 109.1 Performed By: #### L 100.0100 ####[facility] [address] [place], [address] Hemoglobin (Bld) [Mass/Vol] 13.4 g/dL Normal 13.0-16.5 [facility] Comment on above: Order Comment: 109.1 Performed By: #### L 100.0100 ####[facility] [address] [place], [address] IG% 0.300 Normal 0.0-0.9 [facility] Comment on above: Order Comment: 109.1 Result Comment: IG% - Immature Granulocytes (promyelocytes, myelocytes andmetamyelocytes) > 1% indicates that a LEFT SHIFT is Present. Performed By: #### L 100.0100 ####[facility] [address] [place], [address] Lymphocytes/100 WBC (Bld) 21.0 % Normal 19-41 [facility] Comment on above: Order Comment: 109.1 Performed By: #### L 100.0100 ####[facility] [address], [address] MCH (RBC) [Entitic mass] 29.7 pg Normal 27.0-32.0 [facility] Comment on above: Order Comment: 109.1 Performed By: #### L 100.0100 ####[facility] [address] [place], [address] MCHC (RBC) [Mass/Vol] 32.7 g/dL Normal 32-36 [facility] Comment on above: Order Comment: 109.1 Performed By: #### L 100.0100 ####[facility] [address] [place], [address] MCV (RBC) [Entitic vol] 90.9 fL Normal 80-94 [facility] Comment on above: Order Comment: 109.1 Performed By: #### L 100.0100 ####[facility] [address] [place], [address] Monocytes/100 WBC (Bld) 7.6 % Normal 0-10 [facility] Comment on above: Order Comment: 109.1 Performed By: #### L 100.0100 ####[facility] [address] [place], [address] Neutrophils/100 WBC (Bld) 69.4 % Normal 47-70 [facility] Comment on above: Order Comment: 109.1 Performed By: #### L 100.0100 ####[facility] [address] [place], [address] Nucleated RBC (Bld) [#/Vol] 0 10*3/uL Normal 0-5 [facility] Comment on above: Order Comment: 109.1 Performed By: #### L 100.0100 ####[facility] [address] [place], [address] Platelet mean volume (Bld) [Entitic vol] 11.4 fL Normal 6.2-12.0 [facility] Comment on above: Order Comment: 109.1 Performed By: #### L 100.0100 ####[facility] [address] [place], [address] Platelets (Bld) [#/Vol] 206 10*3/uL Normal 150-450 [facility] Comment on above: Order Comment: 109.1 Performed By: #### L 100.0100 ####[facility] [address] [place], [address] RBC (Bld) [#/Vol] 4.51 10*6/uL Low 4.6-6.2 [facility] Comment on above: Order Comment: 109.1 Performed By: #### L 100.0100 ####[facility] [address] [place], [address] RDW SD 42.3 fl Normal 35.1-43.9 [facility] Comment on above: Order Comment: 109.1 Performed By: #### L 100.0100 ####[facility] [address] [place], [address] WBC (Bld) [#/Vol] 10.0 10*3/uL Normal 4.4-11.0 [facility] Comment on above: Order Comment: 109.1 Performed By: #### L 100.0100 ####[facility] [address] [place], [address] Eosinophil percentageOrdered By: Renard Burgos on 07-15-2024 Eosinophils/100 WBC (Bld) 1.2 % 0-5 [facility] Erythrocyte distribution wid th ratioOrdered By: Renard Burgos on 07-15-2024 Erythrocyte distribution width (RBC) [Ratio] 12.9 % 11.6-14.6 [facility] Erythrocyte distribution wid th standard deviationOrdered By: Renard Burgos on 07-15-2024 Erythrocyte distribution width (RBC) [Entitic vol] 42.3 fL 35.1-43.9 [facility] Erythrocyte distribution width (RBC) [Ratio] 42.3 fl 35.1-43.9 [facility] Hematocrit Auto (Bld) [Volum e fraction]Ordered By: Renard Burgos on 07-15-2024 Hematocrit (Bld) [Volume fraction] 41.0 % 40-54 [facility] Hemoglobin measurementOrdere d By: Renard Burgos on 07-15-2024 Hemoglobin (Bld) [Mass/Vol] 13.4 g/dL 13.0-16.5 [facility] Immature granulocytes/100 WB C Auto (Bld)Ordered By: Renard Burgos on 07-15-2024 Immature granulocytes/100 WBC (Bld) 0.300 % 0.0-0.9 [facility] Comment on above: IG% - Immature Granu locytes (promyelocytes, myelocytes and metamyelocytes) > 1% indicates that a LEFT SHIFT is Present. Lymphocytes Auto (Unsp spec) [#/Vol]Ordered By: Renard Burgos on 07-15-2024 Lymphocytes (Bld) [#/Vol] 2.10 10*3/uL 0.83-4.51 [facility] Lymphocytes/100 WBC Auto (Un sp spec)Ordered By: Renard Burgos on 07-15-2024 Lymphocytes/100 WBC (Bld) 21.0 % 19-41 [facility] MCV (mean corpuscular volume ) determinationOrdered By: Renard Burgos on 07-15-2024 MCV (RBC) [Entitic vol] 90.9 fL 80-94 [facility] Mean corpuscular hemoglobin (MCH) determinationOrdered By: Renard Burgos on 07-15-2024 MCH (RBC) [Entitic mass] 29.7 pg 27.0-32.0 [facility] Mean corpuscular hemoglobin concentration (MCHC) determinationOrdered By: Renard Burgos on 07-15-2024 MCHC (RBC) [Mass/Vol] 32.7 g/dL 32-36 [facility] Mean platelet volume determi nationOrdered By: Renard Burgos on 07-15-2024 Platelet mean volume (Bld) [Entitic vol] 11.4 fL 6.2-12.0 [facility] Monocyte percentageOrdered B y: Renard Burgos on 07-15-2024 Monocytes/100 WBC (Bld) 7.6 % 0-10 [facility] Neutrophil percentageOrdered By: Renard Burgos on 07-15-2024 Neutrophils/100 WBC (Bld) 69.4 % 47-70 [facility] Nucleated red blood cell per centageOrdered By: Renard Burgos on 07-15-2024 Nucleated RBC/100 WBC (Bld) [Ratio] 0 % 0-5 [facility] Platelet countOrdered By: Garrick Bhatt on 07-15-2024 Platelets (Bld) [#/Vol] 206 10*3/uL 150-450 [facility] RBC Auto (Bld) [#/Vol]Ordere d By: Renard Burgos on 07-15-2024 RBC (Bld) [#/Vol] 4.51 10*6/uL Low 4.6-6.2 [facility] White blood cell (WBC) count Ordered By: Renard Burgos on 07-15-2024 WBC (Bld) [#/Vol] 10.0 10*3/uL 4.4-11.0 [facility] Absolute lymphocyte countOrd ered By: Renard Burgos on 07-08-2024 Lymphocytes Auto (Unsp spec) [#/Vol] 2.02 10*3/uL 0.83-4.51 [facility] Absolute neutrophil countOrd ered By: Renard Burgos on 07-08-2024 Neutrophils (Bld) [#/Vol] 7.2 10*3/uL 2.0-7.7 [facility] Automated lymphocyte count a s percentage of total leukocytesOrdered By: Renard Burgos on 07-08-2024 Lymphocytes/100 WBC Auto (Unsp spec) 19.7 % 19-41 [facility] Basophil percentageOrdered B y: Renard Burgos on 07-08-2024 Basophils/100 WBC (Bld) 0.6 % 0-1 [facility] CBC W/Diff, Automatedon 06-29 Absolute Lymph 2.02 X10 3/uL Normal 0.83-4.51 [facility] Comment on above: Order Comment: 109-1 Performed By: #### L 100.0100 ####[facility] [address] [place], [address] Absolute Neut 7.2 X10 3/uL Normal 2.0-7.7 [facility] Comment on above: Order Comment: 109-1 Performed By: #### L 100.0100 ####[facility] [address] [place], [address] Basophils/100 WBC (Bld) 0.6 % Normal 0-1 [facility] Comment on above: Order Comment: 109-1 Performed By: #### L 100.0100 ####[facility] [address] [place], [address] Eosinophils/100 WBC (Bld) 1.5 % Normal 0-5 [facility] Comment on above: Order Comment: 109-1 Performed By: #### L 100.0100 ####[facility] [address] [place], [address] Erythrocyte distribution width (RBC) [Ratio] 12.9 % Normal 11.6-14.6 [facility] Comment on above: Order Comment: 109-1 Performed By: #### L 100.0100 ####[facility] [address] [place], [address] Hematocrit (Bld) [Volume fraction] 40.6 % Normal 40-54 [facility] Comment on above: Order Comment: 109-1 Performed By: #### L 100.0100 ####[facility] [address] [place], [address] Hemoglobin (Bld) [Mass/Vol] 13.6 g/dL Normal 13.0-16.5 [facility] Comment on above: Order Comment: 109-1 Performed By: #### L 100.0100 ####[facility] [address] [place], [address] IG% 0.500 Normal 0.0-0.9 [facility] Comment on above: Order Comment: 109-1 Result Comment: IG% - Immature Granulocytes (promyelocytes, myelocytes andmetamyelocytes) > 1% indicates that a LEFT SHIFT is Present. Performed By: #### L 100.0100 ####[facility] [address] [place], [address] Lymphocytes/100 WBC (Bld) 19.7 % Normal 19-41 [facility] Comment on above: Order Comment: 109-1 Performed By: #### L 100.0100 ####[facility] [address] [place], [address] MCH (RBC) [Entitic mass] 30.5 pg Normal 27.0-32.0 [facility] Comment on above: Order Comment: 109-1 Performed By: #### L 100.0100 ####[facility] [address] [place], [address] MCHC (RBC) [Mass/Vol] 33.5 g/dL Normal 32-36 [facility] Comment on above: Order Comment: 109-1 Performed By: #### L 100.0100 ####[facility] [address] [place], [address] MCV (RBC) [Entitic vol] 91.0 fL Normal 80-94 [facility] Comment on above: Order Comment: 109-1 Performed By: #### L 100.0100 ####[facility] [address] [place], [address] Monocytes/100 WBC (Bld) 7.4 % Normal 0-10 [facility] Comment on above: Order Comment: 109-1 Performed By: #### L 100.0100 ####[facility] [address] [place], [address] Neutrophils/100 WBC (Bld) 70.3 % High 47-70 [facility] Comment on above: Order Comment: 109-1 Performed By: #### L 100.0100 ####[facility] [address] [place], [address] Nucleated RBC (Bld) [#/Vol] 0 10*3/uL Normal 0-5 [facility] Comment on above: Order Comment: 109-1 Performed By: #### L 100.0100 ####[facility] [address] [place], [address] Platelet mean volume (Bld) [Entitic vol] 11.1 fL Normal 6.2-12.0 [facility] Comment on above: Order Comment: 109-1 Performed By: #### L 100.0100 ####[facility] [address] [place], [address] Platelets (Bld) [#/Vol] 207 10*3/uL Normal 150-450 [facility] Comment on above: Order Comment: 109-1 Performed By: #### L 100.0100 ####[facility] [address] [place], [address] RBC (Bld) [#/Vol] 4.46 10*6/uL Low 4.6-6.2 [facility] Comment on above: Order Comment: 109-1 Performed By: #### L 100.0100 ####[facility] [address] [place], [address] RDW SD 42.5 fl Normal 35.1-43.9 [facility] Comment on above: Order Comment: 109-1 Performed By: #### L 100.0100 ####[facility] [address] [place], [address] WBC (Bld) [#/Vol] 10.3 10*3/uL Normal 4.4-11.0 [facility] Comment on above: Order Comment: 109-1 Performed By: #### L 100.0100 ####[facility] [address] [place], [address] Eosinophil percentageOrdered By: Renard Burgos on 07-08-2024 Eosinophils/100 WBC (Bld) 1.5 % 0-5 [facility] Erythrocyte distribution wid th ratioOrdered By: Renard Burgos on 07-08-2024 Erythrocyte distribution width (RBC) [Ratio] 12.9 % 11.6-14.6 [facility] Erythrocyte distribution wid th standard deviationOrdered By: Renard Burgos on 07-08-2024 Erythrocyte distribution width (RBC) [Entitic vol] 42.5 fL 35.1-43.9 [facility] Erythrocyte distribution width (RBC) [Ratio] 42.5 fl 35.1-43.9 [facility] Hematocrit Auto (Bld) [Volum e fraction]Ordered By: Renard Burgos on 07-08-2024 Hematocrit (Bld) [Volume fraction] 40.6 % 40-54 [facility] Hemoglobin measurementOrdere d By: Renard Burgos on 07-08-2024 Hemoglobin (Bld) [Mass/Vol] 13.6 g/dL 13.0-16.5 [facility] Immature granulocytes/100 WB C Auto (Bld)Ordered By: Renard Burgos on 07-08-2024 Immature granulocytes/100 WBC (Bld) 0.500 % 0.0-0.9 [facility] Comment on above: IG% - Immature Granu locytes (promyelocytes, myelocytes and metamyelocytes) > 1% indicates that a LEFT SHIFT is Present. Lymphocytes Auto (Unsp spec) [#/Vol]Ordered By: Renard Burgos on 07-08-2024 Lymphocytes (Bld) [#/Vol] 2.02 10*3/uL 0.83-4.51 [facility] Lymphocytes/100 WBC Auto (Un sp spec)Ordered By: Renard Burgos on 07-08-2024 Lymphocytes/100 WBC (Bld) 19.7 % 19-41 [facility] MCV (mean corpuscular volume ) determinationOrdered By: Renard Burgos on 07-08-2024 MCV (RBC) [Entitic vol] 91.0 fL 80-94 [facility] Mean corpuscular hemoglobin (MCH) determinationOrdered By: Renard Burgos on 07-08-2024 MCH (RBC) [Entitic mass] 30.5 pg 27.0-32.0 [facility] Mean corpuscular hemoglobin concentration (MCHC) determinationOrdered By: Renard Burgos on 07-08-2024 MCHC (RBC) [Mass/Vol] 33.5 g/dL 32-36 [facility] Mean platelet volume determi nationOrdered By: Renard Burgos on 07-08-2024 Platelet mean volume (Bld) [Entitic vol] 11.1 fL 6.2-12.0 [facility] Monocyte percentageOrdered B y: Renard Burgos on 07-08-2024 Monocytes/100 WBC (Bld) 7.4 % 0-10 [facility] Neutrophil percentageOrdered By: Renard Burgos on 07-08-2024 Neutrophils/100 WBC (Bld) 70.3 % High 47-70 [facility] Nucleated red blood cell per centageOrdered By: Renard Burgos on 07-08-2024 Nucleated RBC/100 WBC (Bld) [Ratio] 0 % 0-5 [facility] Platelet countOrdered By: Garrick Bhatt on 07-08-2024 Platelets (Bld) [#/Vol] 207 10*3/uL 150-450 [facility] RBC Auto (Bld) [#/Vol]Ordere d By: Renard Burgos on 07-08-2024 RBC (Bld) [#/Vol] 4.46 10*6/uL Low 4.6-6.2 [facility] White blood cell (WBC) count Ordered By: Renard Burgos on 07-08-2024 WBC (Bld) [#/Vol] 10.3 10*3/uL 4.4-11.0 [facility] Absolute lymphocyte countOrd ered By: Renard Burgos on 07-01-2024 Lymphocytes Auto (Unsp spec) [#/Vol] 2.03 10*3/uL 0.83-4.51 [facility] Absolute neutrophil countOrd ered By: Renard Burgos on 07-01-2024 Neutrophils (Bld) [#/Vol] 7.0 10*3/uL 2.0-7.7 [facility] Automated lymphocyte count a s percentage of total leukocytesOrdered By: Renard Burgos on 07-01-2024 Lymphocytes/100 WBC Auto (Unsp spec) 20.3 % 19-41 [facility] Basophil percentageOrdered B y: Renard Burgos on 07-01-2024 Basophils/100 WBC (Bld) 0.6 % 0-1 [facility] CBC W/Diff, Automatedon Absolute Lymph 2.03 X10 3/uL Normal 0.83-4.51 [facility] Comment on above: Order Comment: 109 Performed By: #### L 100.0100 ####[facility] [address] [place], [address] Absolute Neut 7.0 X10 3/uL Normal 2.0-7.7 [facility] Comment on above: Order Comment: 109 Performed By: #### L 100.0100 ####[facility] [address] [place], [address] Basophils/100 WBC (Bld) 0.6 % Normal 0-1 [facility] Comment on above: Order Comment: 109 Performed By: #### L 100.0100 ####[facility] [address] [place], [address] Eosinophils/100 WBC (Bld) 1.3 % Normal 0-5 [facility] Comment on above: Order Comment: 109 Performed By: #### L 100.0100 ####[facility] [address] [place], [address] Erythrocyte distribution width (RBC) [Ratio] 13.1 % Normal 11.6-14.6 [facility] Comment on above: Order Comment: 109 Performed By: #### L 100.0100 ####[facility] [address] [place], [address] Hematocrit (Bld) [Volume fraction] 41.7 % Normal 40-54 [facility] Comment on above: Order Comment: 109 Performed By: #### L 100.0100 ####[facility] [address] [place], [address] Hemoglobin (Bld) [Mass/Vol] 13.6 g/dL Normal 13.0-16.5 [facility] Comment on above: Order Comment: 109 Performed By: #### L 100.0100 ####[facility] [address] [place], [address] IG% 0.500 Normal 0.0-0.9 [facility] Comment on above: Order Comment: 109 Result Comment: IG% - Immature Granulocytes (promyelocytes, myelocytes andmetamyelocytes) > 1% indicates that a LEFT SHIFT is Present. Performed By: #### L 100.0100 ####[facility] [address] [place], [address] Lymphocytes/100 WBC (Bld) 20.3 % Normal 19-41 [facility] Comment on above: Order Comment: 109 Performed By: #### L 100.0100 ####[facility] [address] [place], [address] MCH (RBC) [Entitic mass] 29.6 pg Normal 27.0-32.0 [facility] Comment on above: Order Comment: 109 Performed By: #### L 100.0100 ####[facility] [address] [place], [address] MCHC (RBC) [Mass/Vol] 32.6 g/dL Normal 32-36 [facility] Comment on above: Order Comment: 109 Performed By: #### L 100.0100 ####[facility] [address] [place], [address] MCV (RBC) [Entitic vol] 90.8 fL Normal 80-94 [facility] Comment on above: Order Comment: 109 Performed By: #### L 100.0100 ####[facility] [address] [place], [address] Monocytes/100 WBC (Bld) 6.8 % Normal 0-10 [facility] Comment on above: Order Comment: 109 Performed By: #### L 100.0100 ####[facility] [address] [place], [address] Neutrophils/100 WBC (Bld) 70.5 % High 47-70 [facility] Comment on above: Order Comment: 109 Performed By: #### L 100.0100 ####[facility] [address] [place], [address] Nucleated RBC (Bld) [#/Vol] 0 10*3/uL Normal 0-5 [facility] Comment on above: Order Comment: 109 Performed By: #### L 100.0100 ####[facility] [address] [place], [address] Platelet mean volume (Bld) [Entitic vol] 11.0 fL Normal 6.2-12.0 [facility] Comment on above: Order Comment: 109 Performed By: #### L 100.0100 ####[facility] [address] [place], [address] Platelets (Bld) [#/Vol] 208 10*3/uL Normal 150-450 [facility] Comment on above: Order Comment: 109 Performed By: #### L 100.0100 ####[facility] [address] [place], [address] RBC (Bld) [#/Vol] 4.59 10*6/uL Low 4.6-6.2 [facility] Comment on above: Order Comment: 109 Performed By: #### L 100.0100 ####[facility] [address] [place], [address] RDW SD 42.8 fl Normal 35.1-43.9 [facility] Comment on above: Order Comment: 109 Performed By: #### L 100.0100 ####[facility] [address] [place], [address] WBC (Bld) [#/Vol] 10.0 10*3/uL Normal 4.4-11.0 [facility] Comment on above: Order Comment: 109 Performed By: #### L 100.0100 ####[facility] [address] [place], [address] Eosinophil percentageOrdered By: Renard Burgos on 07-01-2024 Eosinophils/100 WBC (Bld) 1.3 % 0-5 [facility] Erythrocyte distribution wid th ratioOrdered By: Renard Burgos on 07-01-2024 Erythrocyte distribution width (RBC) [Ratio] 13.1 % 11.6-14.6 [facility] Erythrocyte distribution wid th standard deviationOrdered By: Renard Burgos on 07-01-2024 Erythrocyte distribution width (RBC) [Entitic vol] 42.8 fL 35.1-43.9 [facility] Erythrocyte distribution width (RBC) [Ratio] 42.8 fl 35.1-43.9 [facility] Hematocrit Auto (Bld) [Volum e fraction]Ordered By: Renard Burgos on 07-01-2024 Hematocrit (Bld) [Volume fraction] 41.7 % 40-54 [facility] Hemoglobin measurementOrdere d By: Renard Burgos on 07-01-2024 Hemoglobin (Bld) [Mass/Vol] 13.6 g/dL 13.0-16.5 [facility] Immature granulocytes/100 WB C Auto (Bld)Ordered By: Renard Burgos on 07-01-2024 Immature granulocytes/100 WBC (Bld) 0.500 % 0.0-0.9 [facility] Comment on above: IG% - Immature Granu locytes (promyelocytes, myelocytes and metamyelocytes) > 1% indicates that a LEFT SHIFT is Present. Lymphocytes Auto (Unsp spec) [#/Vol]Ordered By: Renard Burgos on 07-01-2024 Lymphocytes (Bld) [#/Vol] 2.03 10*3/uL 0.83-4.51 [facility] Lymphocytes/100 WBC Auto (Un sp spec)Ordered By: Renard Burgos on 07-01-2024 Lymphocytes/100 WBC (Bld) 20.3 % 19-41 [facility] MCV (mean corpuscular volume ) determinationOrdered By: Renard Burgos on 07-01-2024 MCV (RBC) [Entitic vol] 90.8 fL 80-94 [facility] Mean corpuscular hemoglobin (MCH) determinationOrdered By: Renard Burgos on 07-01-2024 MCH (RBC) [Entitic mass] 29.6 pg 27.0-32.0 [facility] Mean corpuscular hemoglobin concentration (MCHC) determinationOrdered By: Renard Burgos on 07-01-2024 MCHC (RBC) [Mass/Vol] 32.6 g/dL 32-36 [facility] Mean platelet volume determi nationOrdered By: Renard Burgos on 07-01-2024 Platelet mean volume (Bld) [Entitic vol] 11.0 fL 6.2-12.0 [facility] Monocyte percentageOrdered B y: Renard Burgos on 07-01-2024 Monocytes/100 WBC (Bld) 6.8 % 0-10 [facility] Neutrophil percentageOrdered By: Renard Burgos on 07-01-2024 Neutrophils/100 WBC (Bld) 70.5 % High 47-70 [facility] Nucleated red blood cell per centageOrdered By: Renard Burgos on 07-01-2024 Nucleated RBC/100 WBC (Bld) [Ratio] 0 % 0-5 [facility] Platelet countOrdered By: Garrick Bhatt on 07-01-2024 Platelets (Bld) [#/Vol] 208 10*3/uL 150-450 [facility] RBC Auto (Bld) [#/Vol]Ordere d By: Renard Burgos on 07-01-2024 RBC (Bld) [#/Vol] 4.59 10*6/uL Low 4.6-6.2 [facility] White blood cell (WBC) count Ordered By: Renard Burgos on 07-01-2024 WBC (Bld) [#/Vol] 10.0 10*3/uL 4.4-11.0 [facility] Urine Cultureon 06-30-2024 URC Normal [facility] Comment on above: Performed By: #### M 100.2200, L400.0001 ####[facility] [address] [place], [place], [address] Bilirubin Test strip Ql (U)O rdered By: Renard Burgos on 06-27-2024 Bilirubin Ql (U) Negative Negative [facility] Epithelial cells.squamous LM Ql (Urine sed)Ordered By: Renard Burgos on 06-27-2024 Epithelial cells.squamous LM.HPF (Urine sed) [#/Area] 0 /[HPF] 0-5 [facility] Glucose Ql (U)Ordered By: Garrick Bhatt on 06-27-2024 Urine Glucose (UA) Normal mg/dl Normal [facility] Ketones Test strip Ql (U)Ord ered By: Renard Burgos on 06-27-2024 Ketones Ql (U) Negative Negative [facility] Microscopic analysis of urin e for red blood cells (RBC)Ordered By: Renard Burgos on 06-27-2024 Microscopic analysis of urine for red blood cells (RBC) 0 SEEN /hpf 0-5 [facility] Urine RBC 0 SEEN /hpf 0-5 [facility] Mucus LM Ql (Urine sed)Order ed By: Renard Burgos on 06-27-2024 Mucus Ql (Urine sed) 0 SEEN /hpf [facility] Nitrite Test strip Ql (U)Ord ered By: Renard Burgos on 06-27-2024 Nitrite Ql (U) Negative Negative [facility] Protein Test strip Ql (U)Ord ered By: Renard Burgos on 06-27-2024 Protein Ql (U) 15 mg/dl High Negative [facility] Squamous epithelial cells de tection in urine sediment by light microscopyOrdered By: Renard Burgos on 06-27-2024 Epithelial cells.squamous LM Ql (Urine sed) 0 SEEN /hpf 0-5 [facility] Urinalysis, Completeon 06-27 RBC 0 SEEN Normal 0-5 [facility] Comment on above: Order Comment: ARCHANA TER SPECIMEN Performed By: #### M 100.2200, L400.0001 ####[facility] [address] [place], [address] Urine blood detectionOrdered By: Renard Burgos on 06-27-2024 Urine Occult Blood Negative Negative [facility] Urine clarityOrdered By: Lyubov Burgos on 06-27-2024 Clarity (U) Clear Clear [facility] Urine color determinationOrd ered By: Renard Burgos on 06-27-2024 Color (U) Yellow Yellow [facility] Urine cultureOrdered By: Lyubov Burgos on 06-27-2024 Bacteria identified Cx Nom (U) Staphylococcus warneri Abnormal [facility] Bacteria identified Cx Nom (U) Aerococcus viridans. Abnormal [facility] Bacteria identified Cx Nom (U) Presumptive C albicans Abnormal [facility] Bacteria identified Cx Nom (U) Staphylococcus warneri Abnormal [facility] Bacteria identified Cx Nom (U) Aerococcus viridans. Abnormal [facility] Bacteria identified Cx Nom (U) Presumptive C albicans Abnormal [facility] Urine glucose detectionOrder ed By: Renard Burgos on 06-27-2024 Glucose Ql (U) Normal mg/dl Normal [facility] Urine leukocyte esterase det ection by dipstickOrdered By: Renard Burgos on 06-27-2024 Leukocyte esterase Test strip Ql (U) Negative Negative [facility] Urine pHOrdered By: Renard ocampo on 06-27-2024 pH (U) 7.0 [pH] 5.0 - 8.0 [facility] Urine sediment bacteria coun t by microscopy (number/high power field)Ordered By: Renard Burgos on 06-27-2024 Bacteria LM.HPF (Urine sed) [#/Area] 0 /[HPF] None Seen [facility] Urine specific gravity measu rementOrdered By: Renard Burgos on 06-27-2024 Specific gravity (U) [Rel density] 1.010 1.002-1.030 [facility] Urine urobilinogen measureme ntOrdered By: Renard Burgos on 06-27-2024 Urobilinogen Ql (U) 4 mg/dl High Normal [facility] Urobilinogen Ql (U)Ordered B y: Renard Burgos on 06-27-2024 Urobilinogen (U) [Mass/Vol] 4 mg/dL High Normal [facility] White blood cell countOrdere d By: Renard Burgos on 06-27-2024 Urine WBC 0 SEEN /hpf 0-5 [facility] White blood cell count 0 SEEN /hpf 0-5 [facility] CT CHEST WO IV CONTRASTon CT [...] 8:07 AM EST Cough x 2months Normal [facility] CT Chest WO contraston 06-26 Nonspecific [...] Electronically Signed Date/Time: 06/26/2024 8:07 AM EST [facility] CT Chest WO contrastOrdered By: Maria Eugenia Ruiz on 06-26-2024 [facility] Work Phone: Absolute lymphocyte countOrd ered By: Renard Burgos on 06-24-2024 Lymphocytes Auto (Unsp spec) [#/Vol] 1.65 10*3/uL 0.83-4.51 [facility] Absolute neutrophil countOrd ered By: Renard Burgos on 06-24-2024 Neutrophils (Bld) [#/Vol] 10.2 10*3/uL High 2.0-7.7 [facility] Automated lymphocyte count a s percentage of total leukocytesOrdered By: Renard Burgos on 06-24-2024 Lymphocytes/100 WBC Auto (Unsp spec) 12.8 % Low 19-41 [facility] Basic Metabolic Profile (BMP )on 06-24-2024 BUN/CRE 24.9 RATIO High 10-20 [facility] Comment on above: Order Comment: 109.1 Performed By: #### L 100.0100, L500.2500 ####[facility] [address] [place], [address] CA,Total 8.3 mg/dL Low 8.5-10.1 [facility] Comment on above: Order Comment: 109.1 Performed By: #### L 100.0100, L500.2500 ####[facility] [address] [place], [address] Chloride [Moles/Vol] 107 mmol/L Normal 98-107 [facility] Comment on above: Order Comment: 109.1 Performed By: #### L 100.0100, L500.2500 ####[facility] [address] [place], [address] CO2 [Moles/Vol] 24.0 mmol/L Normal 21.0-32.0 [facility] Comment on above: Order Comment: 109.1 Performed By: #### L 100.0100, L500.2500 ####[facility] [address] [place], [address] Creatinine [Mass/Vol] 0.60 mg/dL Low 0.70-1.30 [facility] Comment on above: Order Comment: 109.1 Result Comment: The validity of the calculated GFR GFRAA in patients over70 years has not been determined. Clinical correlation isessential. Performed By: #### L 100.0100, L500.2500 ####[facility] [address] [place], [address] EST GFR - AA 172 mL/min Normal >60 [facility] Comment on above: Order Comment: 109.1 Result Comment: Afri can Japanese GFR Calc Performed By: #### L 100.0100, L500.2500 ####[facility] [address] [place], [address] GAP 8 Normal 5-15 [facility] Comment on above: Order Comment: 109.1 Performed By: #### L 100.0100, L500.2500 ####[facility] [address] [place], [address] GFR/1.73 sq M.predicted among non-blacks MDRD (S/P/Bld) [Vol rate/Area] 142 mL/min/{1.73_m2} Normal >60 [facility] Comment on above: Order Comment: 109.1 Result Comment: Non- GFR Calc Performed By: #### L 100.0100, L500.2500 ####[facility] [address] [place], [address] Glucose [Mass/Vol] 101 mg/dL Normal 74-106 [facility] Comment on above: Order Comment: 109.1 Result Comment: Fast ing Glucose result from 100 to 125 mg/dLsuggests IMPAIRED HOMEOSTASIS per A.D.A. criteria. Performed By: #### L 100.0100, L500.2500 ####[facility] [address] [place], [address] Potassium [Moles/Vol] 4.1 mmol/L Normal 3.5-5.1 [facility] Comment on above: Order Comment: 109.1 Performed By: #### L 100.0100, L500.2500 ####[facility] [address] [place], [address] Sodium [Moles/Vol] 139 mmol/L Normal 136-145 [facility] Comment on above: Order Comment: 109.1 Performed By: #### L 100.0100, L500.2500 ####[facility] [address] [place], [address] Urea nitrogen [Mass/Vol] 15 mg/dL Normal 7-18 [facility] Comment on above: Order Comment: 109.1 Performed By: #### L 100.0100, L500.2500 ####[facility] [address] [place], [address] Basophil percentageOrdered B y: Renard Burgos on 06-24-2024 Basophils/100 WBC (Bld) 0.5 % 0-1 [facility] Blood urea nitrogen (BUN)/cr eatinine ratioOrdered By: Renard Burgos on 06-24-2024 Urea nitrogen/Creatinine [Mass ratio] 24.9 mg/mg High 10-20 [facility] CBC W/Diff, Automatedon -2 Absolute Lymph 1.65 X10 3/uL Normal 0.83-4.51 [facility] Comment on above: Order Comment: 109.1 Performed By: #### L 100.0100, L500.2500 ####[facility] [address], [address] Absolute Neut 10.2 X10 3/uL High 2.0-7.7 [facility] Comment on above: Order Comment: 109.1 Performed By: #### L 100.0100, L500.2500 ####[facility] [address] [place], [address] Basophils/100 WBC (Bld) 0.5 % Normal 0-1 [facility] Comment on above: Order Comment: 109.1 Performed By: #### L 100.0100, L500.2500 ####[facility] [address] [place], [address] Eosinophils/100 WBC (Bld) 0.8 % Normal 0-5 [facility] Comment on above: Order Comment: 109.1 Performed By: #### L 100.0100, L500.2500 ####[facility] [address] [place], [address] Erythrocyte distribution width (RBC) [Ratio] 13.2 % Normal 11.6-14.6 [facility] Comment on above: Order Comment: 109.1 Performed By: #### L 100.0100, L500.2500 ####[facility] [address] [place], [place], [address] Hematocrit (Bld) [Volume fraction] 41.8 % Normal 40-54 [facility] Comment on above: Order Comment: 109.1 Performed By: #### L 100.0100, L500.2500 ####[facility] [address] [place], [address] Hemoglobin (Bld) [Mass/Vol] 13.6 g/dL Normal 13.0-16.5 [facility] Comment on above: Order Comment: 109.1 Performed By: #### L 100.0100, L500.2500 ####[facility] [address] [place], [address] IG% 0.500 Normal 0.0-0.9 [facility] Comment on above: Order Comment: 109.1 Result Comment: IG% - Immature Granulocytes (promyelocytes, myelocytes andmetamyelocytes) > 1% indicates that a LEFT SHIFT is Present. Performed By: #### L 100.0100, L500.2500 ####[facility] [address] [place], [address] Lymphocytes/100 WBC (Bld) 12.8 % Low 19-41 [facility] Comment on above: Order Comment: 109.1 Performed By: #### L 100.0100, L500.2500 ####[facility] [address] [place], [address] MCH (RBC) [Entitic mass] 30.2 pg Normal 27.0-32.0 [facility] Comment on above: Order Comment: 109.1 Performed By: #### L 100.0100, L500.2500 ####[facility] [address] [place], [address] MCHC (RBC) [Mass/Vol] 32.5 g/dL Normal 32-36 [facility] Comment on above: Order Comment: 109.1 Performed By: #### L 100.0100, L500.2500 ####[facility] [address] [place], [address] MCV (RBC) [Entitic vol] 92.7 fL Normal 80-94 [facility] Comment on above: Order Comment: 109.1 Performed By: #### L 100.0100, L500.2500 ####[facility] [address] [place], [address] Monocytes/100 WBC (Bld) 6.4 % Normal 0-10 [facility] Comment on above: Order Comment: 109.1 Performed By: #### L 100.0100, L500.2500 ####[facility] [address] [place], [address] Neutrophils/100 WBC (Bld) 79.0 % High 47-70 [facility] Comment on above: Order Comment: 109.1 Performed By: #### L 100.0100, L500.2500 ####[facility] [address] [place], [address] Nucleated RBC (Bld) [#/Vol] 0 10*3/uL Normal 0-5 [facility] Comment on above: Order Comment: 109.1 Performed By: #### L 100.0100, L500.2500 ####[facility] [address] [place], [address] Platelet mean volume (Bld) [Entitic vol] 11.3 fL Normal 6.2-12.0 [facility] Comment on above: Order Comment: 109.1 Performed By: #### L 100.0100, L500.2500 ####[facility] [address] [place], [address] Platelets (Bld) [#/Vol] 171 10*3/uL Normal 150-450 [facility] Comment on above: Order Comment: 109.1 Performed By: #### L 100.0100, L500.2500 ####[facility] [address] [place], [address] RBC (Bld) [#/Vol] 4.51 10*6/uL Low 4.6-6.2 [facility] Comment on above: Order Comment: 109.1 Performed By: #### L 100.0100, L500.2500 ####[facility] [address] [place], [address] RDW SD 45.1 fl High 35.1-43.9 [facility] Comment on above: Order Comment: 109.1 Performed By: #### L 100.0100, L500.2500 ####[facility] [address] [place], [address] WBC (Bld) [#/Vol] 12.9 10*3/uL High 4.4-11.0 [facility] Comment on above: Order Comment: 109.1 Performed By: #### L 100.0100, L500.2500 ####[facility] [address] [place], [address] CT Chest WO contraston 06-24 Radiology Study observation (narrative) Estefania smith Carbon dioxide measurementOr dered By: Renard Burgos on 06-24-2024 CO2 [Moles/Vol] 24.0 mmol/L 21.0-32.0 [facility] Chloride measurementOrdered By: Renard Burgos on 06-24-2024 Chloride [Moles/Vol] 107 mmol/L 98-107 [facility] Eosinophil percentageOrdered By: Renard Burgos on 06-24-2024 Eosinophils/100 WBC (Bld) 0.8 % 0-5 [facility] Erythrocyte distribution wid th ratioOrdered By: Renard Burgos on 06-24-2024 Erythrocyte distribution width (RBC) [Ratio] 13.2 % 11.6-14.6 [facility] Erythrocyte distribution wid th standard deviationOrdered By: Renard Burgos on 06-24-2024 Erythrocyte distribution width (RBC) [Entitic vol] 45.1 fL High 35.1-43.9 [facility] Erythrocyte distribution width (RBC) [Ratio] 45.1 fl High 35.1-43.9 [facility] Estimated glomerular filtrat ion rate (GFR) AmericanOrdered By: Renard Burgos on 06-24-2024 Estimated GFR (MDRD) Amer 172 mL/min >60 [facility] Comment on above: GFR Calc Glomerular filtration rate ( GFR) estimationOrdered By: Renard Burgos on 06-24-2024 Estimated GFR (MDRD) Non-Af Amer 142 mL/min >60 [facility] Comment on above: Non- GFR Calc GFR/1.73 sq M.predicted among non-blacks MDRD (S/P/Bld) [Vol rate/Area] 142 mL/min/{1.73_m2} >60 [facility] Comment on above: Non- GFR Calc Glucose measurementOrdered B y: Renard Burgos on 06-24-2024 Glucose [Mass/Vol] 101 mg/dL 74-106 [facility] Comment on above: Fasting Glucose resu lt from 100 to 125 mg/dL suggests IMPAIRED HOMEOSTASIS per A.D.A. criteria. Hematocrit Auto (Bld) [Volum e fraction]Ordered By: Renard Burgos on 06-24-2024 Hematocrit (Bld) [Volume fraction] 41.8 % 40-54 [facility] Hemoglobin measurementOrdere d By: Renard Burgos on 06-24-2024 Hemoglobin (Bld) [Mass/Vol] 13.6 g/dL 13.0-16.5 [facility] Immature granulocytes/100 WB C Auto (Bld)Ordered By: Renard Burgos on 06-24-2024 Immature granulocytes/100 WBC (Bld) 0.500 % 0.0-0.9 [facility] Comment on above: IG% - Immature Granu locytes (promyelocytes, myelocytes and metamyelocytes) > 1% indicates that a LEFT SHIFT is Present. Lymphocytes Auto (Unsp spec) [#/Vol]Ordered By: Renard Burgos on 06-24-2024 Lymphocytes (Bld) [#/Vol] 1.65 10*3/uL 0.83-4.51 [facility] Lymphocytes/100 WBC Auto (Un sp spec)Ordered By: Renard Burgos on 06-24-2024 Lymphocytes/100 WBC (Bld) 12.8 % Low 19-41 [facility] MCV (mean corpuscular volume ) determinationOrdered By: Renard Burgos on 06-24-2024 MCV (RBC) [Entitic vol] 92.7 fL 80-94 [facility] Mean corpuscular hemoglobin (MCH) determinationOrdered By: Renard Burgos on 06-24-2024 MCH (RBC) [Entitic mass] 30.2 pg 27.0-32.0 [facility] Mean corpuscular hemoglobin concentration (MCHC) determinationOrdered By: Renard Burgos on 06-24-2024 MCHC (RBC) [Mass/Vol] 32.5 g/dL 32-36 [facility] Mean platelet volume determi nationOrdered By: Renard Burgos on 06-24-2024 Platelet mean volume (Bld) [Entitic vol] 11.3 fL 6.2-12.0 [facility] Monocyte percentageOrdered B y: Renard Burgos on 06-24-2024 Monocytes/100 WBC (Bld) 6.4 % 0-10 [facility] Neutrophil percentageOrdered By: Renard Burgos on 06-24-2024 Neutrophils/100 WBC (Bld) 79.0 % High 47-70 [facility] Nucleated red blood cell per centageOrdered By: Renard Burgos on 06-24-2024 Nucleated RBC/100 WBC (Bld) [Ratio] 0 % 0-5 [facility] Platelet countOrdered By: Garrick Bhatt on 06-24-2024 Platelets (Bld) [#/Vol] 171 10*3/uL 150-450 [facility] Potassium measurementOrdered By: Renard Burgos on 06-24-2024 Potassium [Moles/Vol] 4.1 mmol/L 3.5-5.1 [facility] RBC Auto (Bld) [#/Vol]Ordere d By: Renard Burgos on 06-24-2024 RBC (Bld) [#/Vol] 4.51 10*6/uL Low 4.6-6.2 [facility] Serum anion gap measurementO rdered By: Renard Burgos on 06-24-2024 Anion gap [Moles/Vol] 8 mmol/L 5-15 [facility] Serum or plasma calcium gordy urement (mass/volume)Ordered By: Renard Burgos on 06-24-2024 Calcium [Mass/Vol] 8.3 mg/dL Low 8.5-10.1 [facility] Serum or plasma creatinine m easurement (mass/volume)Ordered By: Renard Burgos on 06-24-2024 Creatinine [Mass/Vol] 0.60 mg/dL Low 0.70-1.30 [facility] Comment on above: The validity of the calculated GFR & GFRAA in patients over 70 years has not been determined. Clinical correlation is essential. Serum or plasma urea nitroge n measurement (mass/volume)Ordered By: Renard Burgos on 06-24-2024 Urea nitrogen [Mass/Vol] 15 mg/dL 7- [facility] Sodium levelOrdered By: Lamine Burgos on 06-24-2024 Sodium [Moles/Vol] 139 mmol/L 136-145 [facility] White blood cell (WBC) count Ordered By: Renard Burgos on 06-24-2024 WBC (Bld) [#/Vol] 12.9 10*3/uL High 4.4-11.0 [facility] Absolute lymphocyte countOrd ered By: Renard Burgos on 06-17-2024 Lymphocytes Auto (Unsp spec) [#/Vol] 2.00 10*3/uL 0.83-4.51 [facility] Absolute neutrophil countOrd ered By: Renard Burgos on 06-17-2024 Neutrophils (Bld) [#/Vol] 5.1 10*3/uL 2.0-7.7 [facility] Automated lymphocyte count a s percentage of total leukocytesOrdered By: Renard Burgos on 06-17-2024 Lymphocytes/100 WBC Auto (Unsp spec) 24.5 % 19-41 [facility] Basophil percentageOrdered B y: Renard Burgos on 06-17-2024 Basophils/100 WBC (Bld) 1.1 % High 0-1 [facility] CBC W/Diff, Automatedon 06-01 Absolute Lymph 2.00 X10 3/uL Normal 0.83-4.51 [facility] Comment on above: Order Comment: 109-1 Performed By: #### L 100.0100 ####[facility] [address] [place], [address] Absolute Neut 5.1 X10 3/uL Normal 2.0-7.7 [facility] Comment on above: Order Comment: 109-1 Performed By: #### L 100.0100 ####[facility] [address] [place], [address] Basophils/100 WBC (Bld) 1.1 % High 0-1 [facility] Comment on above: Order Comment: 109-1 Performed By: #### L 100.0100 ####[facility] [address] [place], [address] Eosinophils/100 WBC (Bld) 3.4 % Normal 0-5 [facility] Comment on above: Order Comment: 109-1 Performed By: #### L 100.0100 ####[facility] [address] [place], [address] Erythrocyte distribution width (RBC) [Ratio] 13.3 % Normal 11.6-14.6 [facility] Comment on above: Order Comment: 109-1 Performed By: #### L 100.0100 ####[facility] [address] [place], [address] Hematocrit (Bld) [Volume fraction] 39.3 % Low 40-54 [facility] Comment on above: Order Comment: 109-1 Performed By: #### L 100.0100 ####[facility] [address] [place], [address] Hemoglobin (Bld) [Mass/Vol] 12.8 g/dL Low 13.0-16.5 [facility] Comment on above: Order Comment: 109-1 Performed By: #### L 100.0100 ####[facility] [address] [place], [address] IG% 0.200 Normal 0.0-0.9 [facility] Comment on above: Order Comment: 109-1 Result Comment: IG% - Immature Granulocytes (promyelocytes, myelocytes andmetamyelocytes) > 1% indicates that a LEFT SHIFT is Present. Performed By: #### L 100.0100 ####[facility] [address] [place], [address] Lymphocytes/100 WBC (Bld) 24.5 % Normal 19-41 [facility] Comment on above: Order Comment: 109-1 Performed By: #### L 100.0100 ####[facility] [address] [place], [address] MCH (RBC) [Entitic mass] 29.6 pg Normal 27.0-32.0 [facility] Comment on above: Order Comment: 109-1 Performed By: #### L 100.0100 ####[facility] [address] [place], [address] MCHC (RBC) [Mass/Vol] 32.6 g/dL Normal 32-36 [facility] Comment on above: Order Comment: 109-1 Performed By: #### L 100.0100 ####[facility] [address] [place], [address] MCV (RBC) [Entitic vol] 90.8 fL Normal 80-94 [facility] Comment on above: Order Comment: 109-1 Performed By: #### L 100.0100 ####[facility] [address], [address] Monocytes/100 WBC (Bld) 8.8 % Normal 0-10 [facility] Comment on above: Order Comment: 109-1 Performed By: #### L 100.0100 ####[facility] [address] [place], [address] Neutrophils/100 WBC (Bld) 62.0 % Normal 47-70 [facility] Comment on above: Order Comment: 109-1 Performed By: #### L 100.0100 ####[facility] [address] [place], [address] Nucleated RBC (Bld) [#/Vol] 0 10*3/uL Normal 0-5 [facility] Comment on above: Order Comment: 109-1 Performed By: #### L 100.0100 ####[facility] [address] [place], [address] Platelet mean volume (Bld) [Entitic vol] 10.9 fL Normal 6.2-12.0 [facility] Comment on above: Order Comment: 109-1 Performed By: #### L 100.0100 ####[facility] [address] [place], [address] Platelets (Bld) [#/Vol] 218 10*3/uL Normal 150-450 [facility] Comment on above: Order Comment: 109-1 Performed By: #### L 100.0100 ####[facility] [address] [place], [address] RBC (Bld) [#/Vol] 4.33 10*6/uL Low 4.6-6.2 [facility] Comment on above: Order Comment: 109-1 Performed By: #### L 100.0100 ####[facility] [address] [place], [address] RDW SD 44.0 fl High 35.1-43.9 [facility] Comment on above: Order Comment: 109-1 Performed By: #### L 100.0100 ####[facility] [address] [place], [address] WBC (Bld) [#/Vol] 8.2 10*3/uL Normal 4.4-11.0 [facility] Comment on above: Order Comment: 109-1 Performed By: #### L 100.0100 ####[facility] [address] [place], [address] Eosinophil percentageOrdered By: Renard Burgos on 06-17-2024 Eosinophils/100 WBC (Bld) 3.4 % 0-5 [facility] Erythrocyte distribution wid th ratioOrdered By: Renard Burgos on 06-17-2024 Erythrocyte distribution width (RBC) [Ratio] 13.3 % 11.6-14.6 [facility] Erythrocyte distribution wid th standard deviationOrdered By: Renard Burgos on 06-17-2024 Erythrocyte distribution width (RBC) [Entitic vol] 44.0 fL High 35.1-43.9 [facility] Erythrocyte distribution width (RBC) [Ratio] 44.0 fl High 35.1-43.9 [facility] Hematocrit Auto (Bld) [Volum e fraction]Ordered By: Renard Burgos on 06-17-2024 Hematocrit (Bld) [Volume fraction] 39.3 % Low 40-54 [facility] Hemoglobin measurementOrdere d By: Renard Burgos on 06-17-2024 Hemoglobin (Bld) [Mass/Vol] 12.8 g/dL Low 13.0-16.5 [facility] Immature granulocytes/100 WB C Auto (Bld)Ordered By: Renard Burgos on 06-17-2024 Immature granulocytes/100 WBC (Bld) 0.200 % 0.0-0.9 [facility] Comment on above: IG% - Immature Granu locytes (promyelocytes, myelocytes and metamyelocytes) > 1% indicates that a LEFT SHIFT is Present. Lymphocytes Auto (Unsp spec) [#/Vol]Ordered By: Renard Burgos on 06-17-2024 Lymphocytes (Bld) [#/Vol] 2.00 10*3/uL 0.83-4.51 [facility] Lymphocytes/100 WBC Auto (Un sp spec)Ordered By: Renard Burgos on 06-17-2024 Lymphocytes/100 WBC (Bld) 24.5 % 19-41 [facility] MCV (mean corpuscular volume ) determinationOrdered By: Renard Burgos on 06-17-2024 MCV (RBC) [Entitic vol] 90.8 fL 80-94 [facility] Mean corpuscular hemoglobin (MCH) determinationOrdered By: Renard Burgos on 06-17-2024 MCH (RBC) [Entitic mass] 29.6 pg 27.0-32.0 [facility] Mean corpuscular hemoglobin concentration (MCHC) determinationOrdered By: Renard Burgos on 06-17-2024 MCHC (RBC) [Mass/Vol] 32.6 g/dL 32-36 [facility] Mean platelet volume determi nationOrdered By: Renard Burgos on 06-17-2024 Platelet mean volume (Bld) [Entitic vol] 10.9 fL 6.2-12.0 [facility] Monocyte percentageOrdered B y: Renard Burgos on 06-17-2024 Monocytes/100 WBC (Bld) 8.8 % 0-10 [facility] Neutrophil percentageOrdered By: Renard Burgos on 06-17-2024 Neutrophils/100 WBC (Bld) 62.0 % 47-70 [facility] Nucleated red blood cell per centageOrdered By: Renard Burgos on 06-17-2024 Nucleated RBC/100 WBC (Bld) [Ratio] 0 % 0-5 [facility] Platelet countOrdered By: Garrick Bhatt on 06-17-2024 Platelets (Bld) [#/Vol] 218 10*3/uL 150-450 [facility] RBC Auto (Bld) [#/Vol]Ordere d By: Renard Burgos on 06-17-2024 RBC (Bld) [#/Vol] 4.33 10*6/uL Low 4.6-6.2 [facility] White blood cell (WBC) count Ordered By: Renard Burgos on 06-17-2024 WBC (Bld) [#/Vol] 8.2 10*3/uL 4.4-11.0 [facility] Absolute lymphocyte countOrd ered By: Renard Burgos on 06-10-2024 Lymphocytes Auto (Unsp spec) [#/Vol] 2.38 10*3/uL 0.83-4.51 [facility] Absolute neutrophil countOrd ered By: Renard Burgos on 06-10-2024 Neutrophils (Bld) [#/Vol] 5.3 10*3/uL 2.0-7.7 [facility] Automated lymphocyte count a s percentage of total leukocytesOrdered By: Renard Burgos on 06-10-2024 Lymphocytes/100 WBC Auto (Unsp spec) 27.5 % 19-41 [facility] Basophil percentageOrdered B y: Renard Bugros on 06-10-2024 Basophils/100 WBC (Bld) 0.7 % 0-1 [facility] CBC W/Diff, Automatedon 06-01 Absolute Lymph 2.38 X10 3/uL Normal 0.83-4.51 [facility] Comment on above: Order Comment: 109.1 Performed By: #### L 100.0100 ####[facility] [address] [place], [address] Absolute Neut 5.3 X10 3/uL Normal 2.0-7.7 [facility] Comment on above: Order Comment: 109.1 Performed By: #### L 100.0100 ####[facility] [address] [place], [address] Basophils/100 WBC (Bld) 0.7 % Normal 0-1 [facility] Comment on above: Order Comment: 109.1 Performed By: #### L 100.0100 ####[facility] [address] [place], [address] Eosinophils/100 WBC (Bld) 0.7 % Normal 0-5 [facility] Comment on above: Order Comment: 109.1 Performed By: #### L 100.0100 ####[facility] [address] [place], [address] Erythrocyte distribution width (RBC) [Ratio] 13.1 % Normal 11.6-14.6 [facility] Comment on above: Order Comment: 109.1 Performed By: #### L 100.0100 ####[facility] [address] [place], [address] Hematocrit (Bld) [Volume fraction] 41.1 % Normal 40-54 [facility] Comment on above: Order Comment: 109.1 Performed By: #### L 100.0100 ####[facility] [address] [place], [address] Hemoglobin (Bld) [Mass/Vol] 13.5 g/dL Normal 13.0-16.5 [facility] Comment on above: Order Comment: 109.1 Performed By: #### L 100.0100 ####[facility] [address] [place], [address] IG% 0.500 Normal 0.0-0.9 [facility] Comment on above: Order Comment: 109.1 Result Comment: IG% - Immature Granulocytes (promyelocytes, myelocytes andmetamyelocytes) > 1% indicates that a LEFT SHIFT is Present. Performed By: #### L 100.0100 ####[facility] [address] [place], [address] Lymphocytes/100 WBC (Bld) 27.5 % Normal 19-41 [facility] Comment on above: Order Comment: 109.1 Performed By: #### L 100.0100 ####[facility] [address] [place], [address] MCH (RBC) [Entitic mass] 30.1 pg Normal 27.0-32.0 [facility] Comment on above: Order Comment: 109.1 Performed By: #### L 100.0100 ####[facility] [address] [place], [address] MCHC (RBC) [Mass/Vol] 32.8 g/dL Normal 32-36 [facility] Comment on above: Order Comment: 109.1 Performed By: #### L 100.0100 ####[facility] [address] [place], [address] MCV (RBC) [Entitic vol] 91.7 fL Normal 80-94 [facility] Comment on above: Order Comment: 109.1 Performed By: #### L 100.0100 ####[facility] [address] [place], [address] Monocytes/100 WBC (Bld) 9.6 % Normal 0-10 [facility] Comment on above: Order Comment: 109.1 Performed By: #### L 100.0100 ####[facility] [address] [place], [address] Neutrophils/100 WBC (Bld) 61.0 % Normal 47-70 [facility] Comment on above: Order Comment: 109.1 Performed By: #### L 100.0100 ####[facility] [address] [place], [address] Nucleated RBC (Bld) [#/Vol] 0 10*3/uL Normal 0-5 [facility] Comment on above: Order Comment: 109.1 Performed By: #### L 100.0100 ####[facility] [address] [place], [address] Platelet mean volume (Bld) [Entitic vol] 11.0 fL Normal 6.2-12.0 [facility] Comment on above: Order Comment: 109.1 Performed By: #### L 100.0100 ####[facility] [address] [place], [address] Platelets (Bld) [#/Vol] 261 10*3/uL Normal 150-450 [facility] Comment on above: Order Comment: 109.1 Performed By: #### L 100.0100 ####[facility] [address] [place], [address] RBC (Bld) [#/Vol] 4.48 10*6/uL Low 4.6-6.2 [facility] Comment on above: Order Comment: 109.1 Performed By: #### L 100.0100 ####[facility] [address] [place], [address] RDW SD 43.2 fl Normal 35.1-43.9 [facility] Comment on above: Order Comment: 109.1 Performed By: #### L 100.0100 ####[facility] [address] [place], [address] WBC (Bld) [#/Vol] 8.6 10*3/uL Normal 4.4-11.0 [facility] Comment on above: Order Comment: 109.1 Performed By: #### L 100.0100 ####[facility] [address] [place], [address] Eosinophil percentageOrdered By: Renard Burgos on 06-10-2024 Eosinophils/100 WBC (Bld) 0.7 % 0-5 [facility] Erythrocyte distribution wid th ratioOrdered By: Renard Burgos on 06-10-2024 Erythrocyte distribution width (RBC) [Ratio] 13.1 % 11.6-14.6 [facility] Erythrocyte distribution wid th standard deviationOrdered By: Renard Burgos on 06-10-2024 Erythrocyte distribution width (RBC) [Entitic vol] 43.2 fL 35.1-43.9 [facility] Erythrocyte distribution width (RBC) [Ratio] 43.2 fl 35.1-43.9 [facility] Hematocrit Auto (Bld) [Volum e fraction]Ordered By: Renard Burgos on 06-10-2024 Hematocrit (Bld) [Volume fraction] 41.1 % 40-54 [facility] Hemoglobin measurementOrdere d By: Renard Burgos on 06-10-2024 Hemoglobin (Bld) [Mass/Vol] 13.5 g/dL 13.0-16.5 [facility] Immature granulocytes/100 WB C Auto (Bld)Ordered By: Renard Burgos on 06-10-2024 Immature granulocytes/100 WBC (Bld) 0.500 % 0.0-0.9 [facility] Comment on above: IG% - Immature Granu locytes (promyelocytes, myelocytes and metamyelocytes) > 1% indicates that a LEFT SHIFT is Present. Lymphocytes Auto (Unsp spec) [#/Vol]Ordered By: Renard Burgos on 06-10-2024 Lymphocytes (Bld) [#/Vol] 2.38 10*3/uL 0.83-4.51 [facility] Lymphocytes/100 WBC Auto (Un sp spec)Ordered By: Renard Burgos on 06-10-2024 Lymphocytes/100 WBC (Bld) 27.5 % 19-41 [facility] MCV (mean corpuscular volume ) determinationOrdered By: Renard Burgos on 06-10-2024 MCV (RBC) [Entitic vol] 91.7 fL 80-94 [facility] Mean corpuscular hemoglobin (MCH) determinationOrdered By: Renard Burgos on 06-10-2024 MCH (RBC) [Entitic mass] 30.1 pg 27.0-32.0 [facility] Mean corpuscular hemoglobin concentration (MCHC) determinationOrdered By: Renard Burgos on 06-10-2024 MCHC (RBC) [Mass/Vol] 32.8 g/dL 32-36 [facility] Mean platelet volume determi nationOrdered By: Renard Burgos on 06-10-2024 Platelet mean volume (Bld) [Entitic vol] 11.0 fL 6.2-12.0 [facility] Monocyte percentageOrdered B y: Renard Burgos on 06-10-2024 Monocytes/100 WBC (Bld) 9.6 % 0-10 [facility] Neutrophil percentageOrdered By: Renard Burgos on 06-10-2024 Neutrophils/100 WBC (Bld) 61.0 % 47-70 [facility] Nucleated red blood cell per centageOrdered By: Renard Burgos on 06-10-2024 Nucleated RBC/100 WBC (Bld) [Ratio] 0 % 0-5 [facility] Platelet countOrdered By: Garrick Bhatt on 06-10-2024 Platelets (Bld) [#/Vol] 261 10*3/uL 150-450 [facility] RBC Auto (Bld) [#/Vol]Ordere d By: Renard Burgos on 06-10-2024 RBC (Bld) [#/Vol] 4.48 10*6/uL Low 4.6-6.2 [facility] Urine Cultureon 06-10-2024 URC Normal [facility] Comment on above: Performed By: #### M 100.2200, L400.0001 ####[facility] [address] [place], [place], [id number] White blood cell (WBC) count Ordered By: Renard Burgos on 06-10-2024 WBC (Bld) [#/Vol] 8.6 10*3/uL 4.4-11.0 [facility] Bilirubin Test strip Ql (U)O rdered By: Renard Burgos on 06-07-2024 Bilirubin Ql (U) Negative Negative [facility] CBC-Complete Blood Cnt No Di ffon 06-07-2024 Erythrocyte distribution width (RBC) [Ratio] 13.0 % Normal 11.6-14.6 [facility] Comment on above: Order Comment: 109-1 Performed By: #### L 100.0500 ####[facility] [address] [place], [address] Hematocrit (Bld) [Volume fraction] 39.3 % Low 40-54 [facility] Comment on above: Order Comment: 109-1 Performed By: #### L 100.0500 ####[facility] [address] [place], [address] Hemoglobin (Bld) [Mass/Vol] 13.0 g/dL Normal 13.0-16.5 [facility] Comment on above: Order Comment: 109-1 Performed By: #### L 100.0500 ####[facility] [address] [place], [address] MCH (RBC) [Entitic mass] 30.2 pg Normal 27.0-32.0 [facility] Comment on above: Order Comment: 109-1 Performed By: #### L 100.0500 ####[facility] [address] [place], [address] MCHC (RBC) [Mass/Vol] 33.1 g/dL Normal 32-36 [facility] Comment on above: Order Comment: 109-1 Performed By: #### L 100.0500 ####[facility] [address] [place], [address] MCV (RBC) [Entitic vol] 91.2 fL Normal 80-94 [facility] Comment on above: Order Comment: 109-1 Performed By: #### L 100.0500 ####[facility] [address] [place], [address] Platelet mean volume (Bld) [Entitic vol] 10.8 fL Normal 6.2-12.0 [facility] Comment on above: Order Comment: 109-1 Performed By: #### L 100.0500 ####[facility] [address] [place], [address] Platelets (Bld) [#/Vol] 251 10*3/uL Normal 150-450 [facility] Comment on above: Order Comment: 109-1 Performed By: #### L 100.0500 ####[facility] [address] [place], [address] RBC (Bld) [#/Vol] 4.31 10*6/uL Low 4.6-6.2 [facility] Comment on above: Order Comment: 109-1 Performed By: #### L 100.0500 ####[facility] [address] [place], [address] RDW SD 43.7 fl Normal 35.1-43.9 [facility] Comment on above: Order Comment: 109-1 Performed By: #### L 100.0500 ####[facility] [address] [place], [address] WBC (Bld) [#/Vol] 9.9 10*3/uL Normal 4.4-11.0 [facility] Comment on above: Order Comment: 109-1 Performed By: #### L 100.0500 ####[facility] [address] [place], [address] Epithelial cells.squamous LM Ql (Urine sed)Ordered By: Renard Burgos on 06-07-2024 Epithelial cells.squamous LM.HPF (Urine sed) [#/Area] 0 /[HPF] 0-5 [facility] Erythrocyte distribution wid th ratioOrdered By: Renard Burgos on 06-07-2024 Erythrocyte distribution width (RBC) [Ratio] 13.0 % 11.6-14.6 [facility] Erythrocyte distribution wid th standard deviationOrdered By: Renard Burgos on 06-07-2024 Erythrocyte distribution width (RBC) [Entitic vol] 43.7 fL 35.1-43.9 [facility] Erythrocyte distribution width (RBC) [Ratio] 43.7 fl 35.1-43.9 [facility] Glucose Ql (U)Ordered By: Garrick Bhatt on 06-07-2024 Urine Glucose (UA) Normal mg/dl Normal [facility] Hematocrit Auto (Bld) [Volum e fraction]Ordered By: Renard Burgos on 06-07-2024 Hematocrit (Bld) [Volume fraction] 39.3 % Low 40-54 [facility] Hemoglobin measurementOrdere d By: Renard Burgos on 06-07-2024 Hemoglobin (Bld) [Mass/Vol] 13.0 g/dL 13.0-16.5 [facility] Ketones Test strip Ql (U)Ord ered By: Renard Burgos on 06-07-2024 Ketones Ql (U) Negative Negative [facility] MCV (mean corpuscular volume ) determinationOrdered By: Renard Burgos on 06-07-2024 MCV (RBC) [Entitic vol] 91.2 fL 80-94 [facility] Mean corpuscular hemoglobin (MCH) determinationOrdered By: Renard Burgos on 06-07-2024 MCH (RBC) [Entitic mass] 30.2 pg 27.0-32.0 [facility] Mean corpuscular hemoglobin concentration (MCHC) determinationOrdered By: Renard Burgos on 06-07-2024 MCHC (RBC) [Mass/Vol] 33.1 g/dL 32-36 [facility] Mean platelet volume determi nationOrdered By: Renard Burgos on 06-07-2024 Platelet mean volume (Bld) [Entitic vol] 10.8 fL 6.2-12.0 [facility] Microscopic analysis of urin e for red blood cells (RBC)Ordered By: Renard Burgos on 06-07-2024 Microscopic analysis of urine for red blood cells (RBC) 0 SEEN /hpf 0-5 [facility] Urine RBC 0 SEEN /hpf 0-5 [facility] Mucus LM Ql (Urine sed)Order ed By: Renard Burgos on 06-07-2024 Mucus Ql (Urine sed) 0 SEEN /hpf [facility] Nitrite Test strip Ql (U)Ord ered By: Renard Burgos on 06-07-2024 Nitrite Ql (U) Negative Negative [facility] Platelet countOrdered By: Garrick Bhatt on 06-07-2024 Platelets (Bld) [#/Vol] 251 10*3/uL 150-450 [facility] Protein Test strip Ql (U)Ord ered By: Renard Burgos on 06-07-2024 Protein Ql (U) 15 mg/dl High Negative [facility] RBC Auto (Bld) [#/Vol]Ordere d By: Renard Burgos on 06-07-2024 RBC (Bld) [#/Vol] 4.31 10*6/uL Low 4.6-6.2 [facility] Squamous epithelial cells de tection in urine sediment by light microscopyOrdered By: Renard Burgos on 06-07-2024 Epithelial cells.squamous LM Ql (Urine sed) 0-5 SEEN /hpf 0-5 [facility] Urinalysis, Completeon 06-07 Mucus Ql (Urine sed) 0 SEEN Normal [facility] Comment on above: Order Comment: CLEAN CATCH Performed By: #### M 100.2200, L400.0001 ####[facility] [address] [place], [address] Urine blood detectionOrdered By: Renard Burgos on 06-07-2024 Urine Occult Blood Negative Negative [facility] Urine clarityOrdered By: Lyubov Burgos on 06-07-2024 Clarity (U) Clear Clear [facility] Urine color determinationOrd ered By: Renard Burgos on 06-07-2024 Color (U) Yellow Yellow [facility] Urine cultureOrdered By: Lyubov Burgos on 06-07-2024 Bacteria identified Cx Nom (U) Pseudomonas aeruginosa Abnormal [facility] Bacteria identified Cx Nom (U) Pseudomonas aeruginosa Abnormal [facility] Urine glucose detectionOrder ed By: Renard Burgos on 06-07-2024 Glucose Ql (U) Normal mg/dl Normal [facility] Urine leukocyte esterase det ection by dipstickOrdered By: Renard Burgos on 06-07-2024 Leukocyte esterase Test strip Ql (U) Negative Negative [facility] Urine pHOrdered By: Renard ocampo on 06-07-2024 pH (U) 7.0 [pH] 5.0 - 8.0 [facility] Urine sediment bacteria coun t by microscopy (number/high power field)Ordered By: Renard Burgos on 06-07-2024 Bacteria LM.HPF (Urine sed) [#/Area] 2 /[HPF] None Seen [facility] Urine sediment yeast count b y microscopy (number/high powered field)Ordered By: Renard Burgos on 06-07-2024 Yeast LM.HPF (Urine sed) [#/Area] 1 /[HPF] None Seen [facility] Urine specific gravity measu rementOrdered By: Renard Burgos on 06-07-2024 Specific gravity (U) [Rel density] 1.010 1.002-1.030 [facility] Urine urobilinogen measureme ntOrdered By: Renard Burgos on 06-07-2024 Urobilinogen Ql (U) 1 mg/dl High Normal [facility] Urobilinogen Ql (U)Ordered B y: Renard Burgos on 06-07-2024 Urobilinogen (U) [Mass/Vol] 1 mg/dL High Normal [facility] White blood cell (WBC) count Ordered By: Renard Burgos on 06-07-2024 WBC (Bld) [#/Vol] 9.9 10*3/uL 4.4-11.0 [facility] White blood cell countOrdere d By: Renard Burgos on 06-07-2024 Urine WBC 0-5 SEEN /hpf 0-5 [facility] White blood cell count 0-5 SEEN /hpf 0-5 [facility] Yeast LM.HPF (Urine sed) [#/ Area]Ordered By: Renard Burgos on 06-07-2024 Urine Yeast 1+ /hpf None Seen [facility] Absolute lymphocyte countOrd ered By: Renard Burgos on 06-03-2024 Lymphocytes Auto (Unsp spec) [#/Vol] 1.94 10*3/uL 0.83-4.51 [facility] Absolute neutrophil countOrd ered By: Renard Burgos on 06-03-2024 Neutrophils (Bld) [#/Vol] 9.5 10*3/uL High 2.0-7.7 [facility] Automated lymphocyte count a s percentage of total leukocytesOrdered By: Renard Burgos on 06-03-2024 Lymphocytes/100 WBC Auto (Unsp spec) 15.7 % Low 19-41 [facility] Basophil percentageOrdered B y: Renard Burgos on 06-03-2024 Basophils/100 WBC (Bld) 0.5 % 0-1 [facility] CBC W/Diff, Automatedon Absolute Lymph 1.94 X10 3/uL Normal 0.83-4.51 [facility] Comment on above: Order Comment: 109-1 Performed By: #### L 100.0100 ####[facility] [address] [place], [address] Absolute Neut 9.5 X10 3/uL High 2.0-7.7 [facility] Comment on above: Order Comment: 109-1 Performed By: #### L 100.0100 ####[facility] [address] [place], [address] Basophils/100 WBC (Bld) 0.5 % Normal 0-1 [facility] Comment on above: Order Comment: 109-1 Performed By: #### L 100.0100 ####[facility] [address] [place], [address] Eosinophils/100 WBC (Bld) 0.3 % Normal 0-5 [facility] Comment on above: Order Comment: 109-1 Performed By: #### L 100.0100 ####[facility] [address] [place], [address] Erythrocyte distribution width (RBC) [Ratio] 13.0 % Normal 11.6-14.6 [facility] Comment on above: Order Comment: 109-1 Performed By: #### L 100.0100 ####[facility] [address] [place], [address] Hematocrit (Bld) [Volume fraction] 40.1 % Normal 40-54 [facility] Comment on above: Order Comment: 109-1 Performed By: #### L 100.0100 ####[facility] [address] [place], [address] Hemoglobin (Bld) [Mass/Vol] 13.2 g/dL Normal 13.0-16.5 [facility] Comment on above: Order Comment: 109-1 Performed By: #### L 100.0100 ####[facility] [address] [place], [address] IG% 0.400 Normal 0.0-0.9 [facility] Comment on above: Order Comment: 109-1 Result Comment: IG% - Immature Granulocytes (promyelocytes, myelocytes andmetamyelocytes) > 1% indicates that a LEFT SHIFT is Present. Performed By: #### L 100.0100 ####[facility] [address] [place], [address] Lymphocytes/100 WBC (Bld) 15.7 % Low 19-41 [facility] Comment on above: Order Comment: 109-1 Performed By: #### L 100.0100 ####[facility] [address] [place], [address] MCH (RBC) [Entitic mass] 30.1 pg Normal 27.0-32.0 [facility] Comment on above: Order Comment: 109-1 Performed By: #### L 100.0100 ####[facility] [address] [place], [address] MCHC (RBC) [Mass/Vol] 32.9 g/dL Normal 32-36 [facility] Comment on above: Order Comment: 109-1 Performed By: #### L 100.0100 ####[facility] [address] [place], [address] MCV (RBC) [Entitic vol] 91.3 fL Normal 80-94 [facility] Comment on above: Order Comment: 109-1 Performed By: #### L 100.0100 ####[facility] [address] [place], [address] Monocytes/100 WBC (Bld) 6.6 % Normal 0-10 [facility] Comment on above: Order Comment: 109-1 Performed By: #### L 100.0100 ####[facility] [address] [place], [address] Neutrophils/100 WBC (Bld) 76.5 % High 47-70 [facility] Comment on above: Order Comment: 109-1 Performed By: #### L 100.0100 ####[facility] [address] [place], [address] Nucleated RBC (Bld) [#/Vol] 0 10*3/uL Normal 0-5 [facility] Comment on above: Order Comment: 109-1 Performed By: #### L 100.0100 ####[facility] [address] [place], [address] Platelet mean volume (Bld) [Entitic vol] 11.1 fL Normal 6.2-12.0 [facility] Comment on above: Order Comment: 109-1 Performed By: #### L 100.0100 ####[facility] [address] [place], [address] Platelets (Bld) [#/Vol] 249 10*3/uL Normal 150-450 [facility] Comment on above: Order Comment: 109-1 Performed By: #### L 100.0100 ####[facility] [address] [place], [address] RBC (Bld) [#/Vol] 4.39 10*6/uL Low 4.6-6.2 [facility] Comment on above: Order Comment: 109-1 Performed By: #### L 100.0100 ####[facility] [address] [place], [address] RDW SD 42.8 fl Normal 35.1-43.9 [facility] Comment on above: Order Comment: 109-1 Performed By: #### L 100.0100 ####[facility] [address] [place], [address] WBC (Bld) [#/Vol] 12.4 10*3/uL High 4.4-11.0 [facility] Comment on above: Order Comment: 109-1 Performed By: #### L 100.0100 ####[facility] [address] [place], [address] Eosinophil percentageOrdered By: Renard Burgos on 06-03-2024 Eosinophils/100 WBC (Bld) 0.3 % 0-5 [facility] Erythrocyte distribution wid th ratioOrdered By: Renadr Burgos on 06-03-2024 Erythrocyte distribution width (RBC) [Ratio] 13.0 % 11.6-14.6 [facility] Erythrocyte distribution wid th standard deviationOrdered By: Renard Burgos on 06-03-2024 Erythrocyte distribution width (RBC) [Entitic vol] 42.8 fL 35.1-43.9 [facility] Erythrocyte distribution width (RBC) [Ratio] 42.8 fl 35.1-43.9 [facility] Hematocrit Auto (Bld) [Volum e fraction]Ordered By: Renard Burgos on 06-03-2024 Hematocrit (Bld) [Volume fraction] 40.1 % 40-54 [facility] Hemoglobin measurementOrdere d By: Renard Burgos on 06-03-2024 Hemoglobin (Bld) [Mass/Vol] 13.2 g/dL 13.0-16.5 [facility] Immature granulocytes/100 WB C Auto (Bld)Ordered By: Renard Burgos on 06-03-2024 Immature granulocytes/100 WBC (Bld) 0.400 % 0.0-0.9 [facility] Comment on above: IG% - Immature Granu locytes (promyelocytes, myelocytes and metamyelocytes) > 1% indicates that a LEFT SHIFT is Present. Lymphocytes Auto (Unsp spec) [#/Vol]Ordered By: Renard Burgos on 06-03-2024 Lymphocytes (Bld) [#/Vol] 1.94 10*3/uL 0.83-4.51 [facility] Lymphocytes/100 WBC Auto (Un sp spec)Ordered By: Renard Burgos on 06-03-2024 Lymphocytes/100 WBC (Bld) 15.7 % Low 19-41 [facility] MCV (mean corpuscular volume ) determinationOrdered By: Renard Burgos on 06-03-2024 MCV (RBC) [Entitic vol] 91.3 fL 80-94 [facility] Mean corpuscular hemoglobin (MCH) determinationOrdered By: Renard Burgos on 06-03-2024 MCH (RBC) [Entitic mass] 30.1 pg 27.0-32.0 [facility] Mean corpuscular hemoglobin concentration (MCHC) determinationOrdered By: Renard Burgos on 06-03-2024 MCHC (RBC) [Mass/Vol] 32.9 g/dL 32-36 [facility] Mean platelet volume determi nationOrdered By: Renard Burgos on 06-03-2024 Platelet mean volume (Bld) [Entitic vol] 11.1 fL 6.2-12.0 [facility] Monocyte percentageOrdered B y: Renard Burgos on 06-03-2024 Monocytes/100 WBC (Bld) 6.6 % 0-10 [facility] Neutrophil percentageOrdered By: Renard Burgos on 06-03-2024 Neutrophils/100 WBC (Bld) 76.5 % High 47-70 [facility] Nucleated red blood cell per centageOrdered By: Renard Bugros on 06-03-2024 Nucleated RBC/100 WBC (Bld) [Ratio] 0 % 0-5 [facility] Platelet countOrdered By: Garrick Bhatt on 06-03-2024 Platelets (Bld) [#/Vol] 249 10*3/uL 150-450 [facility] RBC Auto (Bld) [#/Vol]Ordere d By: Renard Burgos on 06-03-2024 RBC (Bld) [#/Vol] 4.39 10*6/uL Low 4.6-6.2 [facility] White blood cell (WBC) count Ordered By: Renard Loretta on 06-03-2024 WBC (Bld) [#/Vol] 12.4 10*3/uL High 4.4-11.0 [facility] Absolute lymphocyte countOrd ered By: Renard Burgos on 05-27-2024 Lymphocytes Auto (Unsp spec) [#/Vol] 1.81 10*3/uL 0.83-4.51 [facility] Absolute neutrophil countOrd ered By: Renard Burgos on 05-27-2024 Neutrophils (Bld) [#/Vol] 5.0 10*3/uL 2.0-7.7 [facility] Automated lymphocyte count a s percentage of total leukocytesOrdered By: Renard Burgos on 05-27-2024 Lymphocytes/100 WBC Auto (Unsp spec) 24.4 % 19-41 [facility] Basophil percentageOrdered B y: Renard Burgos on 05-27-2024 Basophils/100 WBC (Bld) 0.5 % 0-1 [facility] CBC W/Diff, Automatedon 05-02 Absolute Lymph 1.81 X10 3/uL Normal 0.83-4.51 [facility] Comment on above: Order Comment: 109.1 Performed By: #### L 100.0100 ####[facility] [address] [facility] [address] Absolute Neut 5.0 X10 3/uL Normal 2.0-7.7 [facility] Comment on above: Order Comment: 109.1 Performed By: #### L 100.0100 ####[facility] [address] [place], [address] Basophils/100 WBC (Bld) 0.5 % Normal 0-1 [facility] Comment on above: Order Comment: 109.1 Performed By: #### L 100.0100 ####[facility] [address] [place], [address] Eosinophils/100 WBC (Bld) 0.5 % Normal 0-5 [facility] Comment on above: Order Comment: 109.1 Performed By: #### L 100.0100 ####[facility] [address] [place], [address] Erythrocyte distribution width (RBC) [Ratio] 12.8 % Normal 11.6-14.6 [facility] Comment on above: Order Comment: 109.1 Performed By: #### L 100.0100 ####[facility] [address] [place], [address] Hematocrit (Bld) [Volume fraction] 39.8 % Low 40-54 [facility] Comment on above: Order Comment: 109.1 Performed By: #### L 100.0100 ####[facility] [address] [place], [address] Hemoglobin (Bld) [Mass/Vol] 13.2 g/dL Normal 13.0-16.5 [facility] Comment on above: Order Comment: 109.1 Performed By: #### L 100.0100 ####[facility] [address] [place], [address] IG% 0.400 Normal 0.0-0.9 [facility] Comment on above: Order Comment: 109.1 Result Comment: IG% - Immature Granulocytes (promyelocytes, myelocytes andmetamyelocytes) > 1% indicates that a LEFT SHIFT is Present. Performed By: #### L 100.0100 ####[facility] [address] [place], [address] Lymphocytes/100 WBC (Bld) 24.4 % Normal 19-41 [facility] Comment on above: Order Comment: 109.1 Performed By: #### L 100.0100 ####[facility] [address] [place], [address] MCH (RBC) [Entitic mass] 30.2 pg Normal 27.0-32.0 [facility] Comment on above: Order Comment: 109.1 Performed By: #### L 100.0100 ####[facility] [address] [place], [address] MCHC (RBC) [Mass/Vol] 33.2 g/dL Normal 32-36 [facility] Comment on above: Order Comment: 109.1 Performed By: #### L 100.0100 ####[facility] [address] [place], [address] MCV (RBC) [Entitic vol] 91.1 fL Normal 80-94 [facility] Comment on above: Order Comment: 109.1 Performed By: #### L 100.0100 ####[facility] [address] [place], [address] Monocytes/100 WBC (Bld) 7.0 % Normal 0-10 [facility] Comment on above: Order Comment: 109.1 Performed By: #### L 100.0100 ####[facility] [address] [place], [address] Neutrophils/100 WBC (Bld) 67.2 % Normal 47-70 [facility] Comment on above: Order Comment: 109.1 Performed By: #### L 100.0100 ####[facility] [address] [place], [address] Nucleated RBC (Bld) [#/Vol] 0 10*3/uL Normal 0-5 [facility] Comment on above: Order Comment: 109.1 Performed By: #### L 100.0100 ####[facility] [address] [place], [address] Platelet mean volume (Bld) [Entitic vol] 10.3 fL Normal 6.2-12.0 [facility] Comment on above: Order Comment: 109.1 Performed By: #### L 100.0100 ####[facility] [address] [place], [address] Platelets (Bld) [#/Vol] 239 10*3/uL Normal 150-450 [facility] Comment on above: Order Comment: 109.1 Performed By: #### L 100.0100 ####[facility] [address] [place], [address] RBC (Bld) [#/Vol] 4.37 10*6/uL Low 4.6-6.2 [facility] Comment on above: Order Comment: 109.1 Performed By: #### L 100.0100 ####[facility] [address] [place], [address] RDW SD 42.5 fl Normal 35.1-43.9 [facility] Comment on above: Order Comment: 109.1 Performed By: #### L 100.0100 ####[facility] [address] [place], [address] WBC (Bld) [#/Vol] 7.4 10*3/uL Normal 4.4-11.0 [facility] Comment on above: Order Comment: 109.1 Performed By: #### L 100.0100 ####[facility] [address] [place], [address] Eosinophil percentageOrdered By: Renard Burgos on 05-27-2024 Eosinophils/100 WBC (Bld) 0.5 % 0-5 [facility] Erythrocyte distribution wid th ratioOrdered By: Renard Burgos on 05-27-2024 Erythrocyte distribution width (RBC) [Ratio] 12.8 % 11.6-14.6 [facility] Erythrocyte distribution wid th standard deviationOrdered By: Renard Burgos on 05-27-2024 Erythrocyte distribution width (RBC) [Entitic vol] 42.5 fL 35.1-43.9 [facility] Erythrocyte distribution width (RBC) [Ratio] 42.5 fl 35.1-43.9 [facility] Hematocrit Auto (Bld) [Volum e fraction]Ordered By: Renard Burgos on 05-27-2024 Hematocrit (Bld) [Volume fraction] 39.8 % Low 40-54 [facility] Hemoglobin measurementOrdere d By: Renard Burgos on 05-27-2024 Hemoglobin (Bld) [Mass/Vol] 13.2 g/dL 13.0-16.5 [facility] Immature granulocytes/100 WB C Auto (Bld)Ordered By: Renard Burgos on 05-27-2024 Immature granulocytes/100 WBC (Bld) 0.400 % 0.0-0.9 [facility] Comment on above: IG% - Immature Granu locytes (promyelocytes, myelocytes and metamyelocytes) > 1% indicates that a LEFT SHIFT is Present. Lymphocytes Auto (Unsp spec) [#/Vol]Ordered By: Renard Burgos on 05-27-2024 Lymphocytes (Bld) [#/Vol] 1.81 10*3/uL 0.83-4.51 [facility] Lymphocytes/100 WBC Auto (Un sp spec)Ordered By: Renard Burgos on 05-27-2024 Lymphocytes/100 WBC (Bld) 24.4 % 19-41 [facility] MCV (mean corpuscular volume ) determinationOrdered By: Renard Burgos on 05-27-2024 MCV (RBC) [Entitic vol] 91.1 fL 80-94 [facility] Mean corpuscular hemoglobin (MCH) determinationOrdered By: Renard Burgos on 05-27-2024 MCH (RBC) [Entitic mass] 30.2 pg 27.0-32.0 [facility] Mean corpuscular hemoglobin concentration (MCHC) determinationOrdered By: Renard Burgos on 05-27-2024 MCHC (RBC) [Mass/Vol] 33.2 g/dL 32-36 [facility] Mean platelet volume determi nationOrdered By: Renard Burgos on 05-27-2024 Platelet mean volume (Bld) [Entitic vol] 10.3 fL 6.2-12.0 [facility] Monocyte percentageOrdered B y: Renard Burgos on 05-27-2024 Monocytes/100 WBC (Bld) 7.0 % 0-10 [facility] Neutrophil percentageOrdered By: Renard Burgos on 05-27-2024 Neutrophils/100 WBC (Bld) 67.2 % 47-70 [facility] Nucleated red blood cell per centageOrdered By: Renard Burgos on 05-27-2024 Nucleated RBC/100 WBC (Bld) [Ratio] 0 % 0-5 [facility] Platelet countOrdered By: Garrick Bhatt on 05-27-2024 Platelets (Bld) [#/Vol] 239 10*3/uL 150-450 [facility] RBC Auto (Bld) [#/Vol]Ordere d By: Renard Burgos on 05-27-2024 RBC (Bld) [#/Vol] 4.37 10*6/uL Low 4.6-6.2 [facility] White blood cell (WBC) count Ordered By: Renard Burgos on 05-27-2024 WBC (Bld) [#/Vol] 7.4 10*3/uL 4.4-11.0 [facility] Absolute lymphocyte countOrd ered By: Renard Burgos on 05-20-2024 Lymphocytes Auto (Unsp spec) [#/Vol] 1.73 10*3/uL 0.83-4.51 [facility] Absolute neutrophil countOrd ered By: Renard Burgos on 05-20-2024 Neutrophils (Bld) [#/Vol] 7.0 10*3/uL 2.0-7.7 [facility] Automated blood erythrocyte countOrdered By: Renard Burgos on 05-20-2024 RBC (Bld) [#/Vol] 4.74 10*6/uL Normal 4.6-6.2 [facility] Comment on above: Order Comment: 109-1 Performed By: #### L 100.0100 ####[facility] [address] [place], [address] Automated blood hematocrit ( percentage)Ordered By: Renard Burgos on 05-20-2024 Hematocrit (Bld) [Volume fraction] 43.6 % Normal 40-54 [facility] Comment on above: Order Comment: 109-1 Performed By: #### L 100.0100 ####[facility] [address] [place], [address] Automated lymphocyte count a s percentage of total leukocytesOrdered By: Renard Burgos on 05-20-2024 Lymphocytes/100 WBC (Bld) 17.7 % Low -41 [facility] Comment on above: Order Comment: 109-1 Performed By: #### L 100.0100 ####[facility] [address] [place], [address] Lymphocytes/100 WBC Auto (Unsp spec) 17.7 % Low - [facility] Basophil percentageOrdered B y: Renard Burgos on 05-20-2024 Basophils/100 WBC (Bld) 0.5 % Normal 0-1 [facility] Comment on above: Order Comment: 109-1 Performed By: #### L 100.0100 ####[facility] [address] [place], [address] CBC W/Diff, Automatedon 05-02 Absolute Lymph 1.73 X10 3/uL Normal 0.83-4.51 [facility] Comment on above: Order Comment: 109-1 Performed By: #### L 100.0100 ####[facility] [address] [place], [address] Absolute Neut 7.0 X10 3/uL Normal 2.0-7.7 [facility] Comment on above: Order Comment: 109-1 Performed By: #### L 100.0100 ####[facility] [address] [place], [address] IG% 0.500 Normal 0.0-0.9 [facility] Comment on above: Order Comment: 109-1 Result Comment: IG% - Immature Granulocytes (promyelocytes, myelocytes andmetamyelocytes) > 1% indicates that a LEFT SHIFT is Present. Performed By: #### L 100.0100 ####[facility] [address] [place], [address] Nucleated RBC (Bld) [#/Vol] 0 10*3/uL Normal 0-5 [facility] Comment on above: Order Comment: 109-1 Performed By: #### L 100.0100 ####[facility] [address] [place], [address] RDW SD 42.5 fl Normal 35.1-43.9 [facility] Comment on above: Order Comment: 109-1 Performed By: #### L 100.0100 ####[facility] [address] [place], [address] Eosinophil percentageOrdered By: Renard Burgos on 05-20-2024 Eosinophils/100 WBC (Bld) 0.5 % Normal 0-5 [facility] Comment on above: Order Comment: 109-1 Performed By: #### L 100.0100 ####[facility] [address] [place], [address] Erythrocyte distribution wid th ratioOrdered By: Renard Burgos on 05-20-2024 Erythrocyte distribution width (RBC) [Ratio] 12.6 % Normal 11.6-14.6 [facility] Comment on above: Order Comment: 109-1 Performed By: #### L 100.0100 ####[facility] [address] [place], [address] Erythrocyte distribution wid th standard deviationOrdered By: Renard Burgos on 05-20-2024 Erythrocyte distribution width (RBC) [Entitic vol] 42.5 fL 35.1-43.9 [facility] Erythrocyte distribution width (RBC) [Ratio] 42.5 fl 35.1-43.9 [facility] Hemoglobin measurementOrdere d By: Renard Burgos on 05-20-2024 Hemoglobin (Bld) [Mass/Vol] 14.4 g/dL Normal 13.0-16.5 [facility] Comment on above: Order Comment: 109-1 Performed By: #### L 100.0100 ####[facility] [address] [place], [address] Immature granulocytes/100 WB C Auto (Bld)Ordered By: Renard Burgos on 05-20-2024 Immature granulocytes/100 WBC (Bld) 0.500 % 0.0-0.9 [facility] Comment on above: IG% - Immature Granu locytes (promyelocytes, myelocytes and metamyelocytes) > 1% indicates that a LEFT SHIFT is Present. Lymphocytes Auto (Unsp spec) [#/Vol]Ordered By: Renard Burgos on 05-20-2024 Lymphocytes (Bld) [#/Vol] 1.73 10*3/uL 0.83-4.51 [facility] MCV (mean corpuscular volume ) determinationOrdered By: Renard Burgos on 05-20-2024 MCV (RBC) [Entitic vol] 92.0 fL Normal 80-94 [facility] Comment on above: Order Comment: 109-1 Performed By: #### L 100.0100 ####[facility] [address] [place], [address] Mean corpuscular hemoglobin (MCH) determinationOrdered By: Renard Burgos on 05-20-2024 MCH (RBC) [Entitic mass] 30.4 pg Normal 27.0-32.0 [facility] Comment on above: Order Comment: 109-1 Performed By: #### L 100.0100 ####[facility] [address] [place], [place], [phone] Mean corpuscular hemoglobin concentration (MCHC) determinationOrdered By: Renard Burgos on 05-20-2024 MCHC (RBC) [Mass/Vol] 33.0 g/dL Normal 32-36 [facility] Comment on above: Order Comment: 109-1 Performed By: #### L 100.0100 ####[facility] [address] [place], [place], [phone] Mean platelet volume determi nationOrdered By: Renard Burgos on 05-20-2024 Platelet mean volume (Bld) [Entitic vol] 10.7 fL Normal 6.2-12.0 [facility] Comment on above: Order Comment: 109-1 Performed By: #### L 100.0100 ####[facility] [address] [place], [address] Monocyte percentageOrdered B y: Renard Burgos on 05-20-2024 Monocytes/100 WBC (Bld) 9.4 % Normal 0-10 [facility] Comment on above: Order Comment: 109-1 Performed By: #### L 100.0100 ####[facility] [address] [place], [address] Neutrophil percentageOrdered By: Renard Burgos on 05-20-2024 Neutrophils/100 WBC (Bld) 71.4 % High 47-70 [facility] Comment on above: Order Comment: 109-1 Performed By: #### L 100.0100 ####[facility] [address] [place], [address] Nucleated red blood cell per centageOrdered By: Renard Burgos on 05-20-2024 Nucleated RBC/100 WBC (Bld) [Ratio] 0 % 0-5 [facility] Platelet countOrdered By: Garrick Bhatt on 05-20-2024 Platelets (Bld) [#/Vol] 239 10*3/uL Normal 150-450 [facility] Comment on above: Order Comment: 109-1 Performed By: #### L 100.0100 ####[facility] [address] [place], [address] White blood cell (WBC) count Ordered By: Renard Burgos on 05-20-2024 WBC (Bld) [#/Vol] 9.8 10*3/uL Normal 4.4-11.0 [facility] Comment on above: Order Comment: 109-1 Performed By: #### L 100.0100 ####[facility] [address] [place], [address] Absolute lymphocyte countOrd ered By: Renard Burgos on 05-13-2024 Lymphocytes Auto (Unsp spec) [#/Vol] 2.10 10*3/uL 0.83-4.51 [facility] Absolute neutrophil countOrd ered By: Renard Burgos on 05-13-2024 Neutrophils (Bld) [#/Vol] 6.2 10*3/uL 2.0-7.7 [facility] Automated lymphocyte count a s percentage of total leukocytesOrdered By: Renard Hensleyrustam on 05-13-2024 Lymphocytes/100 WBC Auto (Unsp spec) 22.8 % 19-41 [facility] Basophil percentageOrdered B y: Renard Hensleyrustam on 05-13-2024 Basophils/100 WBC (Bld) 0.5 % 0-1 [facility] CBC W/Diff, Automatedon 05-01 Absolute Lymph 2.10 X10 3/uL Normal 0.83-4.51 [facility] Comment on above: Order Comment: 109 Performed By: #### L 100.0100 ####[facility] [address] [place], [address] Absolute Neut 6.2 X10 3/uL Normal 2.0-7.7 [facility] Comment on above: Order Comment: 109 Performed By: #### L 100.0100 ####[facility] [address] [place], [address] Basophils/100 WBC (Bld) 0.5 % Normal 0-1 [facility] Comment on above: Order Comment: 109 Performed By: #### L 100.0100 ####[facility] [address] [place], [address] Eosinophils/100 WBC (Bld) 0.5 % Normal 0-5 [facility] Comment on above: Order Comment: 109 Performed By: #### L 100.0100 ####[facility] [address] [place], [address] Erythrocyte distribution width (RBC) [Ratio] 12.9 % Normal 11.6-14.6 [facility] Comment on above: Order Comment: 109 Performed By: #### L 100.0100 ####[facility] [address] [place], [address] Hematocrit (Bld) [Volume fraction] 42.5 % Normal 40-54 [facility] Comment on above: Order Comment: 109 Performed By: #### L 100.0100 ####[facility] [address] [place], [address] Hemoglobin (Bld) [Mass/Vol] 14.2 g/dL Normal 13.0-16.5 [facility] Comment on above: Order Comment: 109 Performed By: #### L 100.0100 ####[facility] [address] [place], [address] IG% 0.300 Normal 0.0-0.9 [facility] Comment on above: Order Comment: 109 Result Comment: IG% - Immature Granulocytes (promyelocytes, myelocytes andmetamyelocytes) > 1% indicates that a LEFT SHIFT is Present. Performed By: #### L 100.0100 ####[facility] [address] [place], [address] Lymphocytes/100 WBC (Bld) 22.8 % Normal 19-41 [facility] Comment on above: Order Comment: 109 Performed By: #### L 100.0100 ####[facility] [address] [place], [address] MCH (RBC) [Entitic mass] 30.3 pg Normal 27.0-32.0 [facility] Comment on above: Order Comment: 109 Performed By: #### L 100.0100 ####[facility] [address] [place], [address] MCHC (RBC) [Mass/Vol] 33.4 g/dL Normal 32-36 [facility] Comment on above: Order Comment: 109 Performed By: #### L 100.0100 ####[facility] [address] [place], [address] MCV (RBC) [Entitic vol] 90.6 fL Normal 80-94 [facility] Comment on above: Order Comment: 109 Performed By: #### L 100.0100 ####[facility] [address] [place], [address] Monocytes/100 WBC (Bld) 8.7 % Normal 0-10 [facility] Comment on above: Order Comment: 109 Performed By: #### L 100.0100 ####[facility] [address] [place], [address] Neutrophils/100 WBC (Bld) 67.2 % Normal 47-70 [facility] Comment on above: Order Comment: 109 Performed By: #### L 100.0100 ####[facility] [address] [place], [address] Nucleated RBC (Bld) [#/Vol] 0 10*3/uL Normal 0-5 [facility] Comment on above: Order Comment: 109 Performed By: #### L 100.0100 ####[facility] [address] [place], [address] Platelet mean volume (Bld) [Entitic vol] 11.1 fL Normal 6.2-12.0 [facility] Comment on above: Order Comment: 109 Performed By: #### L 100.0100 ####[facility] [address] [place], [address] Platelets (Bld) [#/Vol] 218 10*3/uL Normal 150-450 [facility] Comment on above: Order Comment: 109 Performed By: #### L 100.0100 ####[facility] [address] [place], [address] RBC (Bld) [#/Vol] 4.69 10*6/uL Normal 4.6-6.2 [facility] Comment on above: Order Comment: 109 Performed By: #### L 100.0100 ####[facility] [address] [place], [address] RDW SD 42.3 fl Normal 35.1-43.9 [facility] Comment on above: Order Comment: 109 Performed By: #### L 100.0100 ####[facility] [address] [place], [address] WBC (Bld) [#/Vol] 9.2 10*3/uL Normal 4.4-11.0 [facility] Comment on above: Order Comment: 109 Performed By: #### L 100.0100 ####[facility] [address] [place], [address] Eosinophil percentageOrdered By: Renard Burgos on 05-13-2024 Eosinophils/100 WBC (Bld) 0.5 % 0-5 [facility] Erythrocyte distribution wid th ratioOrdered By: Renard Burgos on 05-13-2024 Erythrocyte distribution width (RBC) [Ratio] 12.9 % 11.6-14.6 [facility] Erythrocyte distribution wid th standard deviationOrdered By: Renard Burgos on 05-13-2024 Erythrocyte distribution width (RBC) [Entitic vol] 42.3 fL 35.1-43.9 [facility] Erythrocyte distribution width (RBC) [Ratio] 42.3 fl 35.1-43.9 [facility] Hematocrit Auto (Bld) [Volum e fraction]Ordered By: Renard Burgos on 05-13-2024 Hematocrit (Bld) [Volume fraction] 42.5 % 40-54 [facility] Hemoglobin measurementOrdere d By: Renard Burgos on 05-13-2024 Hemoglobin (Bld) [Mass/Vol] 14.2 g/dL 13.0-16.5 [facility] Immature granulocytes/100 WB C Auto (Bld)Ordered By: Renard Burgos on 05-13-2024 Immature granulocytes/100 WBC (Bld) 0.300 % 0.0-0.9 [facility] Comment on above: IG% - Immature Granu locytes (promyelocytes, myelocytes and metamyelocytes) > 1% indicates that a LEFT SHIFT is Present. Lymphocytes Auto (Unsp spec) [#/Vol]Ordered By: Renard Burgos on 05-13-2024 Lymphocytes (Bld) [#/Vol] 2.10 10*3/uL 0.83-4.51 [facility] Lymphocytes/100 WBC Auto (Un sp spec)Ordered By: Renard Burgos on 05-13-2024 Lymphocytes/100 WBC (Bld) 22.8 % 19-41 [facility] MCV (mean corpuscular volume ) determinationOrdered By: Renard Burgos on 05-13-2024 MCV (RBC) [Entitic vol] 90.6 fL 80-94 [facility] Mean corpuscular hemoglobin (MCH) determinationOrdered By: Renard Burgos on 05-13-2024 MCH (RBC) [Entitic mass] 30.3 pg 27.0-32.0 [facility] Mean corpuscular hemoglobin concentration (MCHC) determinationOrdered By: Renard Burgos on 05-13-2024 MCHC (RBC) [Mass/Vol] 33.4 g/dL 32-36 [facility] Mean platelet volume determi nationOrdered By: Renard Burgos on 05-13-2024 Platelet mean volume (Bld) [Entitic vol] 11.1 fL 6.2-12.0 [facility] Monocyte percentageOrdered B y: Renard Burgos on 05-13-2024 Monocytes/100 WBC (Bld) 8.7 % 0-10 [facility] Neutrophil percentageOrdered By: Renard Burgos on 05-13-2024 Neutrophils/100 WBC (Bld) 67.2 % 47-70 [facility] Nucleated red blood cell per centageOrdered By: Renard Burgos on 05-13-2024 Nucleated RBC/100 WBC (Bld) [Ratio] 0 % 0-5 [facility] Platelet countOrdered By: Garrick Bhatt on 05-13-2024 Platelets (Bld) [#/Vol] 218 10*3/uL 150-450 [facility] RBC Auto (Bld) [#/Vol]Ordere d By: Renard Burgos on 05-13-2024 RBC (Bld) [#/Vol] 4.69 10*6/uL 4.6-6.2 [facility] White blood cell (WBC) count Ordered By: Renard Burgos on 05-13-2024 WBC (Bld) [#/Vol] 9.2 10*3/uL 4.4-11.0 [facility] Absolute neutrophil countOrd ered By: Renard Burgos on 05-06-2024 Neutrophils (Bld) [#/Vol] 5.9 10*3/uL 2.0-7.7 [facility] Automated blood erythrocyte countOrdered By: Renard Burgos on 05-06-2024 RBC (Bld) [#/Vol] 4.85 10*6/uL Normal 4.6-6.2 [facility] Comment on above: Order Comment: 109-1 Performed By: #### L 100.0100 ####[facility] [address] [place], [place], [address] Automated blood hematocrit ( percentage)Ordered By: Renard Burgos on 05-06-2024 Hematocrit (Bld) [Volume fraction] 45.0 % Normal 40-54 [facility] Comment on above: Order Comment: 109-1 Performed By: #### L 100.0100 ####[facility] [address] [place], [place], [address] Automated lymphocyte count a s percentage of total leukocytesOrdered By: Renard Burgos on 05-06-2024 Lymphocytes/100 WBC (Bld) 24.4 % Normal 19-41 [facility] Comment on above: Order Comment: 109-1 Performed By: #### L 100.0100 ####[facility] [address] [place], [place], [phone] Basophil percentageOrdered B y: Renard Burgos on 05-06-2024 Basophils/100 WBC (Bld) 0.5 % Normal 0-1 [facility] Comment on above: Order Comment: 109-1 Performed By: #### L 100.0100 ####[facility] [address] [place], [address] CBC W/Diff, Automatedon - Absolute Lymph 2.22 X10 3/uL Normal 0.83-4.51 [facility] Comment on above: Order Comment: 109-1 Performed By: #### L 100.0100 ####[facility] [address] [place], [address] Absolute Neut 5.9 X10 3/uL Normal 2.0-7.7 [facility] Comment on above: Order Comment: 109-1 Performed By: #### L 100.0100 ####[facility] [address] [place], [address] IG% 0.500 Normal 0.0-0.9 [facility] Comment on above: Order Comment: 109-1 Result Comment: IG% - Immature Granulocytes (promyelocytes, myelocytes andmetamyelocytes) > 1% indicates that a LEFT SHIFT is Present. Performed By: #### L 100.0100 ####[facility] [address] [place], [address] Nucleated RBC (Bld) [#/Vol] 0 10*3/uL Normal 0-5 [facility] Comment on above: Order Comment: 109-1 Performed By: #### L 100.0100 ####[facility] [address] [place], [address] RDW SD 43.9 fl Normal 35.1-43.9 [facility] Comment on above: Order Comment: 109-1 Performed By: #### L 100.0100 ####[facility] [address] [place], [address] Eosinophil percentageOrdered By: Renard Burgos on 05-06-2024 Eosinophils/100 WBC (Bld) 0.4 % Normal 0-5 [facility] Comment on above: Order Comment: 109-1 Performed By: #### L 100.0100 ####[facility] [address] [place], [place], [address] Erythrocyte distribution wid th ratioOrdered By: Renard Burgos on 05-06-2024 Erythrocyte distribution width (RBC) [Ratio] 13.0 % Normal 11.6-14.6 [facility] Comment on above: Order Comment: 109-1 Performed By: #### L 100.0100 ####[facility] [address] [place], [place], [address] Erythrocyte distribution wid th standard deviationOrdered By: Renard Burgos on 05-06-2024 Erythrocyte distribution width (RBC) [Entitic vol] 43.9 fL 35.1-43.9 [facility] Hemoglobin measurementOrdere d By: Renard Burgos on 05-06-2024 Hemoglobin (Bld) [Mass/Vol] 14.5 g/dL Normal 13.0-16.5 [facility] Comment on above: Order Comment: 109-1 Performed By: #### L 100.0100 ####[facility] [address] [place], [place], [address] Immature granulocytes/100 WB C Auto (Bld)Ordered By: Renard Burgos on 05-06-2024 Immature granulocytes/100 WBC (Bld) 0.500 % 0.0-0.9 [facility] Comment on above: IG% - Immature Granu locytes (promyelocytes, myelocytes and metamyelocytes) > 1% indicates that a LEFT SHIFT is Present. Lymphocytes Auto (Unsp spec) [#/Vol]Ordered By: Renard Burgos on 05-06-2024 Lymphocytes (Bld) [#/Vol] 2.22 10*3/uL 0.83-4.51 [facility] MCV (mean corpuscular volume ) determinationOrdered By: Renard Burgos on 05-06-2024 MCV (RBC) [Entitic vol] 92.8 fL Normal 80-94 [facility] Comment on above: Order Comment: 109-1 Performed By: #### L 100.0100 ####[facility] [address] [place], [address] Mean corpuscular hemoglobin (MCH) determinationOrdered By: Renard Burgos on 05-06-2024 MCH (RBC) [Entitic mass] 29.9 pg Normal 27.0-32.0 [facility] Comment on above: Order Comment: 109-1 Performed By: #### L 100.0100 ####[facility] [address] [place], [place], [phone] Mean corpuscular hemoglobin concentration (MCHC) determinationOrdered By: Renard Burgos on 05-06-2024 MCHC (RBC) [Mass/Vol] 32.2 g/dL Normal 32-36 [facility] Comment on above: Order Comment: 109-1 Performed By: #### L 100.0100 ####[facility] [address] [place], [place], [phone] Mean platelet volume determi nationOrdered By: Renard Burgos on 05-06-2024 Platelet mean volume (Bld) [Entitic vol] 11.4 fL Normal 6.2-12.0 [facility] Comment on above: Order Comment: 109-1 Performed By: #### L 100.0100 ####[facility] [address] [place], [place], [phone] Monocyte percentageOrdered B y: Renard Burgos on 05-06-2024 Monocytes/100 WBC (Bld) 9.7 % Normal 0-10 [facility] Comment on above: Order Comment: 109-1 Performed By: #### L 100.0100 ####[facility] [address] [place], [address] Neutrophil percentageOrdered By: Renard Burgos on 05-06-2024 Neutrophils/100 WBC (Bld) 64.5 % Normal 47-70 [facility] Comment on above: Order Comment: 109-1 Performed By: #### L 100.0100 ####[facility] [address] [place], [address] Nucleated red blood cell per centageOrdered By: Renard Burgos on 05-06-2024 Nucleated RBC/100 WBC (Bld) [Ratio] 0 % 0-5 [facility] Platelet countOrdered By: Garrick Bhatt on 05-06-2024 Platelets (Bld) [#/Vol] 201 10*3/uL Normal 150-450 [facility] Comment on above: Order Comment: 109-1 Performed By: #### L 100.0100 ####[facility] [address] [place], [place], [phone] White blood cell (WBC) count Ordered By: Renard Burgos on 05-06-2024 WBC (Bld) [#/Vol] 9.1 10*3/uL Normal 4.4-11.0 [facility] Comment on above: Order Comment: 109-1 Performed By: #### L 100.0100 ####[facility] [address] [place], [place], [phone] 36on 05-03-2024 36 Gissel is calling to let Dr. Burgos know that the medication he prescribed he not certified, she is going to fax the information to the office. [phone] [facility] Absolute neutrophil countOrd ered By: Renard Burgos on 04-29-2024 Neutrophils (Bld) [#/Vol] 6.3 10*3/uL 2.0-7.7 [facility] Basophil percentageOrdered B y: Renard Burgos on 04-29-2024 Basophils/100 WBC (Bld) 0.4 % 0-1 [facility] CBC W/Diff, Automatedon 04-02 Absolute Lymph 2.11 X10 3/uL Normal 0.83-4.51 [facility] Comment on above: Order Comment: 109.1 Performed By: #### L 100.0100 ####[facility] [address] [place], [place], [phone] Absolute Neut 6.3 X10 3/uL Normal 2.0-7.7 [facility] Comment on above: Order Comment: 109.1 Performed By: #### L 100.0100 ####[facility] [address] [place], [address] Basophils/100 WBC (Bld) 0.4 % Normal 0-1 [facility] Comment on above: Order Comment: 109.1 Performed By: #### L 100.0100 ####[facility] [address] [place], [address] Eosinophils/100 WBC (Bld) 0.4 % Normal 0-5 [facility] Comment on above: Order Comment: 109.1 Performed By: #### L 100.0100 ####[facility] [address], [address] Erythrocyte distribution width (RBC) [Ratio] 12.6 % Normal 11.6-14.6 [facility] Comment on above: Order Comment: 109.1 Performed By: #### L 100.0100 ####[facility] [address] [place], [address] Hematocrit (Bld) [Volume fraction] 41.6 % Normal 40-54 [facility] Comment on above: Order Comment: 109.1 Performed By: #### L 100.0100 ####[facility] [address] [place], [address] Hemoglobin (Bld) [Mass/Vol] 13.7 g/dL Normal 13.0-16.5 [facility] Comment on above: Order Comment: 109.1 Performed By: #### L 100.0100 ####[facility] [address] [place], [address] IG% 0.400 Normal 0.0-0.9 [facility] Comment on above: Order Comment: 109.1 Result Comment: IG% - Immature Granulocytes (promyelocytes, myelocytes andmetamyelocytes) > 1% indicates that a LEFT SHIFT is Present. Performed By: #### L 100.0100 ####[facility] [address] [place], [address] Lymphocytes/100 WBC (Bld) 22.6 % Normal 19-41 [facility] Comment on above: Order Comment: 109.1 Performed By: #### L 100.0100 ####[facility] [address] [place], [address] MCH (RBC) [Entitic mass] 30.1 pg Normal 27.0-32.0 [facility] Comment on above: Order Comment: 109.1 Performed By: #### L 100.0100 ####[facility] [address] [place], [address] MCHC (RBC) [Mass/Vol] 32.9 g/dL Normal 32-36 [facility] Comment on above: Order Comment: 109.1 Performed By: #### L 100.0100 ####[facility] [address] [place], [address] MCV (RBC) [Entitic vol] 91.4 fL Normal 80-94 [facility] Comment on above: Order Comment: 109.1 Performed By: #### L 100.0100 ####[facility] [address], [address] Monocytes/100 WBC (Bld) 9.3 % Normal 0-10 [facility] Comment on above: Order Comment: 109.1 Performed By: #### L 100.0100 ####[facility] [address] [place], [address] Neutrophils/100 WBC (Bld) 66.9 % Normal 47-70 [facility] Comment on above: Order Comment: 109.1 Performed By: #### L 100.0100 ####[facility] [address] [place], [address] Nucleated RBC (Bld) [#/Vol] 0 10*3/uL Normal 0-5 [facility] Comment on above: Order Comment: 109.1 Performed By: #### L 100.0100 ####[facility] [address] [place], [address] Platelet mean volume (Bld) [Entitic vol] 11.0 fL Normal 6.2-12.0 [facility] Comment on above: Order Comment: 109.1 Performed By: #### L 100.0100 ####[facility] [address] [place], [address] Platelets (Bld) [#/Vol] 211 10*3/uL Normal 150-450 [facility] Comment on above: Order Comment: 109.1 Performed By: #### L 100.0100 ####[facility] [address] [place], [address] RBC (Bld) [#/Vol] 4.55 10*6/uL Low 4.6-6.2 [facility] Comment on above: Order Comment: 109.1 Performed By: #### L 100.0100 ####[facility] [address] [place], [address] RDW SD 41.5 fl Normal 35.1-43.9 [facility] Comment on above: Order Comment: 109.1 Performed By: #### L 100.0100 ####[facility] [address] [place], [address] WBC (Bld) [#/Vol] 9.4 10*3/uL Normal 4.4-11.0 [facility] Comment on above: Order Comment: 109.1 Performed By: #### L 100.0100 ####[facility] [address] [place], [address] Eosinophil percentageOrdered By: Renard Burgos on 04-29-2024 Eosinophils/100 WBC (Bld) 0.4 % 0-5 [facility] Erythrocyte distribution wid th ratioOrdered By: Renard Burgos on 04-29-2024 Erythrocyte distribution width (RBC) [Ratio] 12.6 % 11.6-14.6 [facility] Erythrocyte distribution wid th standard deviationOrdered By: Renard Burgos on 04-29-2024 Erythrocyte distribution width (RBC) [Entitic vol] 41.5 fL 35.1-43.9 [facility] Hematocrit Auto (Bld) [Volum e fraction]Ordered By: Renard Burgos on 04-29-2024 Hematocrit (Bld) [Volume fraction] 41.6 % 40-54 [facility] Hemoglobin measurementOrdere d By: Renard Burgos on 04-29-2024 Hemoglobin (Bld) [Mass/Vol] 13.7 g/dL 13.0-16.5 [facility] Immature granulocytes/100 WB C Auto (Bld)Ordered By: Renard Burgos on 04-29-2024 Immature granulocytes/100 WBC (Bld) 0.400 % 0.0-0.9 [facility] Comment on above: IG% - Immature Granu locytes (promyelocytes, myelocytes and metamyelocytes) > 1% indicates that a LEFT SHIFT is Present. Lymphocytes Auto (Unsp spec) [#/Vol]Ordered By: Renard Burgos on 04-29-2024 Lymphocytes (Bld) [#/Vol] 2.11 10*3/uL 0.83-4.51 [facility] Lymphocytes/100 WBC Auto (Un sp spec)Ordered By: Renard Burgos on 04-29-2024 Lymphocytes/100 WBC (Bld) 22.6 % 19-41 [facility] MCV (mean corpuscular volume ) determinationOrdered By: Renard Burgos on 04-29-2024 MCV (RBC) [Entitic vol] 91.4 fL 80-94 [facility] Mean corpuscular hemoglobin (MCH) determinationOrdered By: Renard Burgos on 04-29-2024 MCH (RBC) [Entitic mass] 30.1 pg 27.0-32.0 [facility] Mean corpuscular hemoglobin concentration (MCHC) determinationOrdered By: Renard Burgos on 04-29-2024 MCHC (RBC) [Mass/Vol] 32.9 g/dL 32-36 [facility] Mean platelet volume determi nationOrdered By: Renard Burgos on 04-29-2024 Platelet mean volume (Bld) [Entitic vol] 11.0 fL 6.2-12.0 [facility] Monocyte percentageOrdered B y: Renard Burgos on 04-29-2024 Monocytes/100 WBC (Bld) 9.3 % 0-10 [facility] Neutrophil percentageOrdered By: Renard Burgos on 04-29-2024 Neutrophils/100 WBC (Bld) 66.9 % 47-70 [facility] Nucleated red blood cell per centageOrdered By: Renard Burgos on 04-29-2024 Nucleated RBC/100 WBC (Bld) [Ratio] 0 % 0-5 [facility] Platelet countOrdered By: Garrick Bhatt on 04-29-2024 Platelets (Bld) [#/Vol] 211 10*3/uL 150-450 [facility] RBC Auto (Bld) [#/Vol]Ordere d By: Renard Burgos on 04-29-2024 RBC (Bld) [#/Vol] 4.55 10*6/uL Low 4.6-6.2 [facility] White blood cell (WBC) count Ordered By: Renard Burgos on 04-29-2024 WBC (Bld) [#/Vol] 9.4 10*3/uL 4.4-11.0 [facility] Absolute neutrophil countOrd ered By: Renard Burgos on 04-22-2024 Neutrophils (Bld) [#/Vol] 8.1 10*3/uL High 2.0-7.7 [facility] Basophil percentageOrdered B y: Renard Burgos on 04-22-2024 Basophils/100 WBC (Bld) 0.5 % 0-1 [facility] CBC W/Diff, Automatedon 04-01 Absolute Lymph 2.61 X10 3/uL Normal 0.83-4.51 [facility] Comment on above: Order Comment: 109-1 Performed By: #### L 100.0100 ####[facility] [address] [place], [address] Absolute Neut 8.1 X10 3/uL High 2.0-7.7 [facility] Comment on above: Order Comment: 109-1 Performed By: #### L 100.0100 ####[facility] [address] [place], [address] Basophils/100 WBC (Bld) 0.5 % Normal 0-1 [facility] Comment on above: Order Comment: 109-1 Performed By: #### L 100.0100 ####[facility] [address] [place], [address] Eosinophils/100 WBC (Bld) 0.4 % Normal 0-5 [facility] Comment on above: Order Comment: 109-1 Performed By: #### L 100.0100 ####[facility] [address] [place], [address] Erythrocyte distribution width (RBC) [Ratio] 12.6 % Normal 11.6-14.6 [facility] Comment on above: Order Comment: 109-1 Performed By: #### L 100.0100 ####[facility] [address] [place], [address] Hematocrit (Bld) [Volume fraction] 44.5 % Normal 40-54 [facility] Comment on above: Order Comment: 109-1 Performed By: #### L 100.0100 ####[facility] [address] [place], [address] Hemoglobin (Bld) [Mass/Vol] 14.3 g/dL Normal 13.0-16.5 [facility] Comment on above: Order Comment: 109-1 Performed By: #### L 100.0100 ####[facility] [address] [place], [address] IG% 0.300 Normal 0.0-0.9 [facility] Comment on above: Order Comment: 109-1 Result Comment: IG% - Immature Granulocytes (promyelocytes, myelocytes andmetamyelocytes) > 1% indicates that a LEFT SHIFT is Present. Performed By: #### L 100.0100 ####[facility] [address] [place], [address] Lymphocytes/100 WBC (Bld) 22.0 % Normal 19-41 [facility] Comment on above: Order Comment: 109-1 Performed By: #### L 100.0100 ####[facility] [address] [place], [address] MCH (RBC) [Entitic mass] 29.7 pg Normal 27.0-32.0 [facility] Comment on above: Order Comment: 109-1 Performed By: #### L 100.0100 ####[facility] [address] [place], [address] MCHC (RBC) [Mass/Vol] 32.1 g/dL Normal 32-36 [facility] Comment on above: Order Comment: 109-1 Performed By: #### L 100.0100 ####[facility] [address] [place], [address] MCV (RBC) [Entitic vol] 92.5 fL Normal 80-94 [facility] Comment on above: Order Comment: 109-1 Performed By: #### L 100.0100 ####[facility] [address], [address] Monocytes/100 WBC (Bld) 8.3 % Normal 0-10 [facility] Comment on above: Order Comment: 109-1 Performed By: #### L 100.0100 ####[facility] [address] [place], [address] Neutrophils/100 WBC (Bld) 68.5 % Normal 47-70 [facility] Comment on above: Order Comment: 109-1 Performed By: #### L 100.0100 ####[facility] [address] [place], [address] Nucleated RBC (Bld) [#/Vol] 0 10*3/uL Normal 0-5 [facility] Comment on above: Order Comment: 109-1 Performed By: #### L 100.0100 ####[facility] [address] [place], [address] Platelet mean volume (Bld) [Entitic vol] 11.0 fL Normal 6.2-12.0 [facility] Comment on above: Order Comment: 109-1 Performed By: #### L 100.0100 ####[facility] [address] [place], [address] Platelets (Bld) [#/Vol] 190 10*3/uL Normal 150-450 [facility] Comment on above: Order Comment: 109-1 Performed By: #### L 100.0100 ####[facility] [address] [place], [address] RBC (Bld) [#/Vol] 4.81 10*6/uL Normal 4.6-6.2 [facility] Comment on above: Order Comment: 109-1 Performed By: #### L 100.0100 ####[facility] [address] [place], [address] RDW SD 43.0 fl Normal 35.1-43.9 [facility] Comment on above: Order Comment: 109-1 Performed By: #### L 100.0100 ####[facility] [address] [place], [address] WBC (Bld) [#/Vol] 11.9 10*3/uL High 4.4-11.0 [facility] Comment on above: Order Comment: 109-1 Performed By: #### L 100.0100 ####[facility] [address] [place], [address] Eosinophil percentageOrdered By: Renard Burgos on 04-22-2024 Eosinophils/100 WBC (Bld) 0.4 % 0-5 [facility] Erythrocyte distribution wid th ratioOrdered By: Renard Burgos on 04-22-2024 Erythrocyte distribution width (RBC) [Ratio] 12.6 % 11.6-14.6 [facility] Erythrocyte distribution wid th standard deviationOrdered By: Renard Burgos on 04-22-2024 Erythrocyte distribution width (RBC) [Entitic vol] 43.0 fL 35.1-43.9 [facility] Hematocrit Auto (Bld) [Volum e fraction]Ordered By: Renard Burgos on 04-22-2024 Hematocrit (Bld) [Volume fraction] 44.5 % 40-54 [facility] Hemoglobin measurementOrdere d By: Renard Burgos on 04-22-2024 Hemoglobin (Bld) [Mass/Vol] 14.3 g/dL 13.0-16.5 [facility] Immature granulocytes/100 WB C Auto (Bld)Ordered By: Renard Burgos on 04-22-2024 Immature granulocytes/100 WBC (Bld) 0.300 % 0.0-0.9 [facility] Comment on above: IG% - Immature Granu locytes (promyelocytes, myelocytes and metamyelocytes) > 1% indicates that a LEFT SHIFT is Present. Lymphocytes Auto (Unsp spec) [#/Vol]Ordered By: Renard Burgos on 04-22-2024 Lymphocytes (Bld) [#/Vol] 2.61 10*3/uL 0.83-4.51 [facility] Lymphocytes/100 WBC Auto (Un sp spec)Ordered By: Renard Burgos on 04-22-2024 Lymphocytes/100 WBC (Bld) 22.0 % 19-41 [facility] MCV (mean corpuscular volume ) determinationOrdered By: Renard Burgos on 04-22-2024 MCV (RBC) [Entitic vol] 92.5 fL 80-94 [facility] Mean corpuscular hemoglobin (MCH) determinationOrdered By: Renard Burgos on 04-22-2024 MCH (RBC) [Entitic mass] 29.7 pg 27.0-32.0 [facility] Mean corpuscular hemoglobin concentration (MCHC) determinationOrdered By: Renard Burgos on 04-22-2024 MCHC (RBC) [Mass/Vol] 32.1 g/dL 32-36 [facility] Mean platelet volume determi nationOrdered By: Renard Burgos on 04-22-2024 Platelet mean volume (Bld) [Entitic vol] 11.0 fL 6.2-12.0 [facility] Monocyte percentageOrdered B y: Renard Burgos on 04-22-2024 Monocytes/100 WBC (Bld) 8.3 % 0-10 [facility] Neutrophil percentageOrdered By: Renard Burgso on 04-22-2024 Neutrophils/100 WBC (Bld) 68.5 % 47-70 [facility] Nucleated red blood cell per centageOrdered By: Renard Burgos on 04-22-2024 Nucleated RBC/100 WBC (Bld) [Ratio] 0 % 0-5 [facility] Platelet countOrdered By: Garrick Bhatt on 04-22-2024 Platelets (Bld) [#/Vol] 190 10*3/uL 150-450 [facility] RBC Auto (Bld) [#/Vol]Ordere d By: Renard Burgos on 04-22-2024 RBC (Bld) [#/Vol] 4.81 10*6/uL 4.6-6.2 [facility] White blood cell (WBC) count Ordered By: Renard Burgos on 04-22-2024 WBC (Bld) [#/Vol] 11.9 10*3/uL High 4.4-11.0 [facility] Absolute neutrophil countOrd ered By: Renard Burgos on 04-15-2024 Neutrophils (Bld) [#/Vol] 8.7 10*3/uL High 2.0-7.7 [facility] Basophil percentageOrdered B y: Renard Burgos on 04-15-2024 Basophils/100 WBC (Bld) 0.3 % 0-1 [facility] Bilirubin, totalOrdered By: Renard Burgos on 04-15-2024 Bilirubin [Mass/Vol] 0.30 mg/dL 0.20-1.00 [facility] Comment on above: For patients on eltr ombopag therapy, use of Dimension [place] TBIL is not recommended. Bilirubin.direct [Mass/Vol]O rdered By: Renard Burgos on 04-15-2024 Direct Bilirubin < 0.05 mg/dL 0.00-0.30 [facility] CBC W/Diff, Automatedon 03-31 Absolute Lymph 1.93 X10 3/uL Normal 0.83-4.51 [facility] Comment on above: Order Comment: 109-1 Performed By: #### L 100.0100, L500.3400 ####[facility] [address] [place], [address] Absolute Neut 8.7 X10 3/uL High 2.0-7.7 [facility] Comment on above: Order Comment: 109-1 Performed By: #### L 100.0100, L500.3400 ####[facility] [address] [place], [address] Basophils/100 WBC (Bld) 0.3 % Normal 0-1 [facility] Comment on above: Order Comment: 109-1 Performed By: #### L 100.0100, L500.3400 ####[facility] [address] [place], [address] Eosinophils/100 WBC (Bld) 0.4 % Normal 0-5 [facility] Comment on above: Order Comment: 109-1 Performed By: #### L 100.0100, L500.3400 ####[facility] [address] [place], [address] Erythrocyte distribution width (RBC) [Ratio] 12.8 % Normal 11.6-14.6 [facility] Comment on above: Order Comment: 109-1 Performed By: #### L 100.0100, L500.3400 ####[facility] [address] [place], [address] Hematocrit (Bld) [Volume fraction] 42.5 % Normal 40-54 [facility] Comment on above: Order Comment: 109-1 Performed By: #### L 100.0100, L500.3400 ####[facility] [address] [place], [address] Hemoglobin (Bld) [Mass/Vol] 13.7 g/dL Normal 13.0-16.5 [facility] Comment on above: Order Comment: 109-1 Performed By: #### L 100.0100, L500.3400 ####[facility] [address] [place], [address] IG% 0.400 Normal 0.0-0.9 [facility] Comment on above: Order Comment: 109-1 Result Comment: IG% - Immature Granulocytes (promyelocytes, myelocytes andmetamyelocytes) > 1% indicates that a LEFT SHIFT is Present. Performed By: #### L 100.0100, L500.3400 ####[facility] [address] [place], [address] Lymphocytes/100 WBC (Bld) 16.9 % Low 19-41 [facility] Comment on above: Order Comment: 109-1 Performed By: #### L 100.0100, L500.3400 ####[facility] [address] [place], [address] MCH (RBC) [Entitic mass] 29.5 pg Normal 27.0-32.0 [facility] Comment on above: Order Comment: 109-1 Performed By: #### L 100.0100, L500.3400 ####[facility] [address] [place], [address] MCHC (RBC) [Mass/Vol] 32.2 g/dL Normal 32-36 [facility] Comment on above: Order Comment: 109-1 Performed By: #### L 100.0100, L500.3400 ####[facility] [address] [place], [address] MCV (RBC) [Entitic vol] 91.6 fL Normal 80-94 [facility] Comment on above: Order Comment: 109-1 Performed By: #### L 100.0100, L500.3400 ####[facility] [address] [place], [address] Monocytes/100 WBC (Bld) 6.0 % Normal 0-10 [facility] Comment on above: Order Comment: 109-1 Performed By: #### L 100.0100, L500.3400 ####[facility] [address] [place], [address] Neutrophils/100 WBC (Bld) 76.0 % High 47-70 [facility] Comment on above: Order Comment: 109-1 Performed By: #### L 100.0100, L500.3400 ####[facility] [address] [place], [address] Nucleated RBC (Bld) [#/Vol] 0 10*3/uL Normal 0-5 [facility] Comment on above: Order Comment: 109-1 Performed By: #### L 100.0100, L500.3400 ####[facility] [address] [place], [address] Platelet mean volume (Bld) [Entitic vol] 11.1 fL Normal 6.2-12.0 [facility] Comment on above: Order Comment: 109-1 Performed By: #### L 100.0100, L500.3400 ####[facility] [address] [place], [address] Platelets (Bld) [#/Vol] 197 10*3/uL Normal 150-450 [facility] Comment on above: Order Comment: 109-1 Performed By: #### L 100.0100, L500.3400 ####[facility] [address] [place], [address] RBC (Bld) [#/Vol] 4.64 10*6/uL Normal 4.6-6.2 [facility] Comment on above: Order Comment: 109-1 Performed By: #### L 100.0100, L500.3400 ####[facility] [address] [place], [address] RDW SD 42.5 fl Normal 35.1-43.9 [facility] Comment on above: Order Comment: 109-1 Performed By: #### L 100.0100, L500.3400 ####[facility] [address] [place], [address] WBC (Bld) [#/Vol] 11.4 10*3/uL High 4.4-11.0 [facility] Comment on above: Order Comment: 109-1 Performed By: #### L 100.0100, L500.3400 ####[facility] [address] [place], [address] Eosinophil percentageOrdered By: Renard Burgos on 04-15-2024 Eosinophils/100 WBC (Bld) 0.4 % 0-5 [facility] Erythrocyte distribution wid th ratioOrdered By: Renard Burgos on 04-15-2024 Erythrocyte distribution width (RBC) [Ratio] 12.8 % 11.6-14.6 [facility] Erythrocyte distribution wid th standard deviationOrdered By: Renard Burgos on 04-15-2024 Erythrocyte distribution width (RBC) [Entitic vol] 42.5 fL 35.1-43.9 [facility] Hematocrit Auto (Bld) [Volum e fraction]Ordered By: Renard Burgos on 04-15-2024 Hematocrit (Bld) [Volume fraction] 42.5 % 40-54 [facility] Hemoglobin measurementOrdere d By: Renard Burgos on 04-15-2024 Hemoglobin (Bld) [Mass/Vol] 13.7 g/dL 13.0-16.5 [facility] Immature granulocytes/100 WB C Auto (Bld)Ordered By: Renard Burgos on 04-15-2024 Immature granulocytes/100 WBC (Bld) 0.400 % 0.0-0.9 [facility] Comment on above: IG% - Immature Granu locytes (promyelocytes, myelocytes and metamyelocytes) > 1% indicates that a LEFT SHIFT is Present. Laboratory - Chemistry and C hemistry - challengeOrdered By: Renard Burgos on 04-15-2024 AST [Catalytic activity/Vol] 18 U/L 15-37 [facility] Comment on above: Slight Hemolysis, Re sult may be falsely increased. Liver Profileon 04-15-2024 Albumin [Mass/Vol] 2.9 g/dL Low 3.2-5.0 [facility] Comment on above: Order Comment: 109-1 Performed By: #### L 100.0100, L500.3400 ####[facility] [address] [place], [address] ALK P 126 U/L High 45-117 [facility] Comment on above: Order Comment: 109-1 Performed By: #### L 100.0100, L500.3400 ####[facility] [address] [place], [address] ALT [Catalytic activity/Vol] 21 U/L Normal 16-61 [facility] Comment on above: Order Comment: 109-1 Performed By: #### L 100.0100, L500.3400 ####[facility] [address] [place], [address] AST [Catalytic activity/Vol] 18 U/L Normal 15-37 [facility] Comment on above: Order Comment: 109-1 Result Comment: Slig ht Hemolysis, Result may be falsely increased. Performed By: #### L 100.0100, L500.3400 ####[facility] [address] [place], [address] Bilirubin [Mass/Vol] 0.30 mg/dL Normal 0.20-1.00 [facility] Comment on above: Order Comment: 109-1 Result Comment: For patients on eltrombopag therapy, use of Dimension [place] TBIL is not recommended. Performed By: #### L 100.0100, L500.3400 ####[facility] [address] [place], [address] D BILI < 0.05 Normal 0.00-0.30 [facility] Comment on above: Order Comment: 109-1 Performed By: #### L 100.0100, L500.3400 ####[facility] [address] [place], [address] Globulin (S) [Mass/Vol] 3.0 g/dL Normal 2.2-4.2 [facility] Comment on above: Order Comment: 109-1 Performed By: #### L 100.0100, L500.3400 ####[facility] [address] [place], [address] T PROT 5.9 g/dL Low 6.4-8.2 [facility] Comment on above: Order Comment: 109-1 Performed By: #### L 100.0100, L500.3400 ####[facility] [address] [place], [address] Lymphocytes Auto (Unsp spec) [#/Vol]Ordered By: Renard Burgos on 04-15-2024 Lymphocytes (Bld) [#/Vol] 1.93 10*3/uL 0.83-4.51 [facility] Lymphocytes/100 WBC Auto (Un sp spec)Ordered By: Renard Burgos on 04-15-2024 Lymphocytes/100 WBC (Bld) 16.9 % Low 19-41 [facility] MCV (mean corpuscular volume ) determinationOrdered By: Renard Burgos on 04-15-2024 MCV (RBC) [Entitic vol] 91.6 fL 80-94 [facility] Mean corpuscular hemoglobin (MCH) determinationOrdered By: Renard Burgos on 04-15-2024 MCH (RBC) [Entitic mass] 29.5 pg 27.0-32.0 [facility] Mean corpuscular hemoglobin concentration (MCHC) determinationOrdered By: Renard Burgos on 04-15-2024 MCHC (RBC) [Mass/Vol] 32.2 g/dL 32-36 [facility] Mean platelet volume determi nationOrdered By: Renard Burgos on 04-15-2024 Platelet mean volume (Bld) [Entitic vol] 11.1 fL 6.2-12.0 [facility] Monocyte percentageOrdered B y: Renard Burgos on 04-15-2024 Monocytes/100 WBC (Bld) 6.0 % 0-10 [facility] Neutrophil percentageOrdered By: Renard Burgos on 04-15-2024 Neutrophils/100 WBC (Bld) 76.0 % High 47-70 [facility] Nucleated red blood cell per centageOrdered By: Renard Burgos on 04-15-2024 Nucleated RBC/100 WBC (Bld) [Ratio] 0 % 0-5 [facility] Platelet countOrdered By: Garrick Bhatt on 04-15-2024 Platelets (Bld) [#/Vol] 197 10*3/uL 150-450 [facility] RBC Auto (Bld) [#/Vol]Ordere d By: Renard Burgos on 04-15-2024 RBC (Bld) [#/Vol] 4.64 10*6/uL 4.6-6.2 [facility] Serum globulin measurementOr dered By: Renard Burgos on 04-15-2024 Globulin (S) [Mass/Vol] 3.0 g/dL 2.2-4.2 [facility] Serum or plasma alanine kay otransferase (ALT) measurementOrdered By: Renard Burgos on 04-15-2024 ALT [Catalytic activity/Vol] 21 U/L 16-61 [facility] Serum or plasma albumin gordy urement (mass/volume)Ordered By: Renard Burgos on 04-15-2024 Albumin [Mass/Vol] 2.9 g/dL Low 3.2-5.0 [facility] Serum or plasma alkaline trace sphatase measurementOrdered By: Renard Burgos on 04-15-2024 ALP [Catalytic activity/Vol] 126 U/L High 45-117 [facility] Total proteinOrdered By: Lyubov Burgos on 04-15-2024 Protein [Mass/Vol] 5.9 g/dL Low 6.4-8.2 [facility] White blood cell (WBC) count Ordered By: Renard Burgos on 04-15-2024 WBC (Bld) [#/Vol] 11.4 10*3/uL High 4.4-11.0 [facility] Absolute neutrophil countOrd ered By: Renard Burgos on 04-08-2024 Neutrophils (Bld) [#/Vol] 5.7 10*3/uL 2.0-7.7 [facility] Basophil percentageOrdered B y: Renard Burgos on 04-08-2024 Basophils/100 WBC (Bld) 0.6 % 0-1 [facility] CBC W/Diff, Automatedon Absolute Lymph 2.27 X10 3/uL Normal 0.83-4.51 [facility] Comment on above: Order Comment: 109.1 Performed By: #### L 100.0100 ####[facility] [address] [place], [address] Absolute Neut 5.7 X10 3/uL Normal 2.0-7.7 [facility] Comment on above: Order Comment: 109.1 Performed By: #### L 100.0100 ####[facility] [address] [place], [address] Basophils/100 WBC (Bld) 0.6 % Normal 0-1 [facility] Comment on above: Order Comment: 109.1 Performed By: #### L 100.0100 ####[facility] [address] [place], [address] Eosinophils/100 WBC (Bld) 0.5 % Normal 0-5 [facility] Comment on above: Order Comment: 109.1 Performed By: #### L 100.0100 ####[facility] [address] [place], [address] Erythrocyte distribution width (RBC) [Ratio] 12.6 % Normal 11.6-14.6 [facility] Comment on above: Order Comment: 109.1 Performed By: #### L 100.0100 ####[facility] [address] [place], [address] Hematocrit (Bld) [Volume fraction] 41.2 % Normal 40-54 [facility] Comment on above: Order Comment: 109.1 Performed By: #### L 100.0100 ####[facility] [address] [place], [address] Hemoglobin (Bld) [Mass/Vol] 13.3 g/dL Normal 13.0-16.5 [facility] Comment on above: Order Comment: 109.1 Performed By: #### L 100.0100 ####[facility] [address] [place], [address] IG% 0.200 Normal 0.0-0.9 [facility] Comment on above: Order Comment: 109.1 Result Comment: IG% - Immature Granulocytes (promyelocytes, myelocytes andmetamyelocytes) > 1% indicates that a LEFT SHIFT is Present. Performed By: #### L 100.0100 ####[facility] [address] [place], [address] Lymphocytes/100 WBC (Bld) 26.0 % Normal 19-41 [facility] Comment on above: Order Comment: 109.1 Performed By: #### L 100.0100 ####[facility] [address] [place], [address] MCH (RBC) [Entitic mass] 29.6 pg Normal 27.0-32.0 [facility] Comment on above: Order Comment: 109.1 Performed By: #### L 100.0100 ####[facility] [address] [place], [address] MCHC (RBC) [Mass/Vol] 32.3 g/dL Normal 32-36 [facility] Comment on above: Order Comment: 109.1 Performed By: #### L 100.0100 ####[facility] [address] [place], [address] MCV (RBC) [Entitic vol] 91.8 fL Normal 80-94 [facility] Comment on above: Order Comment: 109.1 Performed By: #### L 100.0100 ####[facility] [address] [place], [address] Monocytes/100 WBC (Bld) 7.8 % Normal 0-10 [facility] Comment on above: Order Comment: 109.1 Performed By: #### L 100.0100 ####[facility] [address] [place], [address] Neutrophils/100 WBC (Bld) 64.9 % Normal 47-70 [facility] Comment on above: Order Comment: 109.1 Performed By: #### L 100.0100 ####[facility] [address] [place], [address] Nucleated RBC (Bld) [#/Vol] 0 10*3/uL Normal 0-5 [facility] Comment on above: Order Comment: 109.1 Performed By: #### L 100.0100 ####[facility] [address] [place], [address] Platelet mean volume (Bld) [Entitic vol] 10.8 fL Normal 6.2-12.0 [facility] Comment on above: Order Comment: 109.1 Performed By: #### L 100.0100 ####[facility] [address] [place], [address] Platelets (Bld) [#/Vol] 208 10*3/uL Normal 150-450 [facility] Comment on above: Order Comment: 109.1 Performed By: #### L 100.0100 ####[facility] [address] [place], [address] RBC (Bld) [#/Vol] 4.49 10*6/uL Low 4.6-6.2 [facility] Comment on above: Order Comment: 109.1 Performed By: #### L 100.0100 ####[facility] [address] [place], [address] RDW SD 42.4 fl Normal 35.1-43.9 [facility] Comment on above: Order Comment: 109.1 Performed By: #### L 100.0100 ####[facility] [address] [place], [address] WBC (Bld) [#/Vol] 8.7 10*3/uL Normal 4.4-11.0 [facility] Comment on above: Order Comment: 109.1 Performed By: #### L 100.0100 ####[facility] [address] [place], [address] Eosinophil percentageOrdered By: Renard Burgos on 04-08-2024 Eosinophils/100 WBC (Bld) 0.5 % 0-5 [facility] Erythrocyte distribution wid th ratioOrdered By: Renard Brugos on 04-08-2024 Erythrocyte distribution width (RBC) [Ratio] 12.6 % 11.6-14.6 [facility] Erythrocyte distribution wid th standard deviationOrdered By: Renard Burgos on 04-08-2024 Erythrocyte distribution width (RBC) [Entitic vol] 42.4 fL 35.1-43.9 [facility] Hematocrit Auto (Bld) [Volum e fraction]Ordered By: Renard Burgos on 04-08-2024 Hematocrit (Bld) [Volume fraction] 41.2 % 40-54 [facility] Hemoglobin measurementOrdere d By: Renard Burgos on 04-08-2024 Hemoglobin (Bld) [Mass/Vol] 13.3 g/dL 13.0-16.5 [facility] Immature granulocytes/100 WB C Auto (Bld)Ordered By: Renard Burgos on 04-08-2024 Immature granulocytes/100 WBC (Bld) 0.200 % 0.0-0.9 [facility] Comment on above: IG% - Immature Granu locytes (promyelocytes, myelocytes and metamyelocytes) > 1% indicates that a LEFT SHIFT is Present. Lymphocytes Auto (Unsp spec) [#/Vol]Ordered By: Renard Burgos on 04-08-2024 Lymphocytes (Bld) [#/Vol] 2.27 10*3/uL 0.83-4.51 [facility] Lymphocytes/100 WBC Auto (Un sp spec)Ordered By: Renard Burgos on 04-08-2024 Lymphocytes/100 WBC (Bld) 26.0 % 19-41 [facility] MCV (mean corpuscular volume ) determinationOrdered By: Renard Burgos on 04-08-2024 MCV (RBC) [Entitic vol] 91.8 fL 80-94 [facility] Mean corpuscular hemoglobin (MCH) determinationOrdered By: Renard Burgos on 04-08-2024 MCH (RBC) [Entitic mass] 29.6 pg 27.0-32.0 [facility] Mean corpuscular hemoglobin concentration (MCHC) determinationOrdered By: Renard Burgos on 04-08-2024 MCHC (RBC) [Mass/Vol] 32.3 g/dL 32-36 [facility] Mean platelet volume determi nationOrdered By: Renard Burgos on 04-08-2024 Platelet mean volume (Bld) [Entitic vol] 10.8 fL 6.2-12.0 [facility] Monocyte percentageOrdered B y: Renard Burgos on 04-08-2024 Monocytes/100 WBC (Bld) 7.8 % 0-10 [facility] Neutrophil percentageOrdered By: Renard Burgos on 04-08-2024 Neutrophils/100 WBC (Bld) 64.9 % 47-70 [facility] Nucleated red blood cell per centageOrdered By: Renard Burgos on 04-08-2024 Nucleated RBC/100 WBC (Bld) [Ratio] 0 % 0-5 [facility] Platelet countOrdered By: Garrick Bhatt on 04-08-2024 Platelets (Bld) [#/Vol] 208 10*3/uL 150-450 [facility] RBC Auto (Bld) [#/Vol]Ordere d By: Renard Burgos on 04-08-2024 RBC (Bld) [#/Vol] 4.49 10*6/uL Low 4.6-6.2 [facility] White blood cell (WBC) count Ordered By: Renard Burgos on 04-08-2024 WBC (Bld) [#/Vol] 8.7 10*3/uL 4.4-11.0 [facility] Absolute neutrophil countOrd ered By: Renard Burgos on 04-01-2024 Neutrophils (Bld) [#/Vol] 7.1 10*3/uL 2.0-7.7 [facility] Basophil percentageOrdered B y: Renard Burgos on 04-01-2024 Basophils/100 WBC (Bld) 0.4 % 0-1 [facility] CBC W/Diff, Automatedon 12- Absolute Lymph 1.97 X10 3/uL Normal 0.83-4.51 [facility] Comment on above: Order Comment: 109-1 Performed By: #### L 100.0100 ####[facility] [address] [place], [address] Absolute Neut 7.1 X10 3/uL Normal 2.0-7.7 [facility] Comment on above: Order Comment: 109-1 Performed By: #### L 100.0100 ####[facility] [address] [place], [address] Basophils/100 WBC (Bld) 0.4 % Normal 0-1 [facility] Comment on above: Order Comment: 109-1 Performed By: #### L 100.0100 ####[facility] [address] [place], [address] Eosinophils/100 WBC (Bld) 0.4 % Normal 0-5 [facility] Comment on above: Order Comment: 109-1 Performed By: #### L 100.0100 ####[facility] [address] [place], [address] Erythrocyte distribution width (RBC) [Ratio] 12.6 % Normal 11.6-14.6 [facility] Comment on above: Order Comment: 109-1 Performed By: #### L 100.0100 ####[facility] [address] [place], [address] Hematocrit (Bld) [Volume fraction] 41.7 % Normal 40-54 [facility] Comment on above: Order Comment: 109-1 Performed By: #### L 100.0100 ####[facility] [address] [place], [address] Hemoglobin (Bld) [Mass/Vol] 13.6 g/dL Normal 13.0-16.5 [facility] Comment on above: Order Comment: 109-1 Performed By: #### L 100.0100 ####[facility] [address] [place], [address] IG% 0.300 Normal 0.0-0.9 [facility] Comment on above: Order Comment: 109-1 Result Comment: IG% - Immature Granulocytes (promyelocytes, myelocytes andmetamyelocytes) > 1% indicates that a LEFT SHIFT is Present. Performed By: #### L 100.0100 ####[facility] [address] [place], [address] Lymphocytes/100 WBC (Bld) 20.0 % Normal 19-41 [facility] Comment on above: Order Comment: 109-1 Performed By: #### L 100.0100 ####[facility] [address] [place], [address] MCH (RBC) [Entitic mass] 29.7 pg Normal 27.0-32.0 [facility] Comment on above: Order Comment: 109-1 Performed By: #### L 100.0100 ####[facility] [address] [place], [address] MCHC (RBC) [Mass/Vol] 32.6 g/dL Normal 32-36 [facility] Comment on above: Order Comment: 109-1 Performed By: #### L 100.0100 ####[facility] [address] [place], [address] MCV (RBC) [Entitic vol] 91.0 fL Normal 80-94 [facility] Comment on above: Order Comment: 109-1 Performed By: #### L 100.0100 ####[facility] [address] [place], [address] Monocytes/100 WBC (Bld) 7.1 % Normal 0-10 [facility] Comment on above: Order Comment: 109-1 Performed By: #### L 100.0100 ####[facility] [address] [place], [address] Neutrophils/100 WBC (Bld) 71.8 % High 47-70 [facility] Comment on above: Order Comment: 109-1 Performed By: #### L 100.0100 ####[facility] [address] [place], [address] Nucleated RBC (Bld) [#/Vol] 0 10*3/uL Normal 0-5 [facility] Comment on above: Order Comment: 109-1 Performed By: #### L 100.0100 ####[facility] [address] [place], [address] Platelet mean volume (Bld) [Entitic vol] 11.3 fL Normal 6.2-12.0 [facility] Comment on above: Order Comment: 109-1 Performed By: #### L 100.0100 ####[facility] [address] [place], [address] Platelets (Bld) [#/Vol] 195 10*3/uL Normal 150-450 [facility] Comment on above: Order Comment: 109-1 Performed By: #### L 100.0100 ####[facility] [address] [place], [address] RBC (Bld) [#/Vol] 4.58 10*6/uL Low 4.6-6.2 [facility] Comment on above: Order Comment: 109-1 Performed By: #### L 100.0100 ####[facility] [address] [place], [address] RDW SD 41.2 fl Normal 35.1-43.9 [facility] Comment on above: Order Comment: 109-1 Performed By: #### L 100.0100 ####[facility] [address] [place], [address] WBC (Bld) [#/Vol] 9.8 10*3/uL Normal 4.4-11.0 [facility] Comment on above: Order Comment: 109-1 Performed By: #### L 100.0100 ####[facility] [address] [place], [address] Eosinophil percentageOrdered By: Renard Burgos on 04-01-2024 Eosinophils/100 WBC (Bld) 0.4 % 0-5 [facility] Erythrocyte distribution wid th ratioOrdered By: Renard Burgos on 04-01-2024 Erythrocyte distribution width (RBC) [Ratio] 12.6 % 11.6-14.6 [facility] Erythrocyte distribution wid th standard deviationOrdered By: Renard Burgos on 04-01-2024 Erythrocyte distribution width (RBC) [Entitic vol] 41.2 fL 35.1-43.9 [facility] Hematocrit Auto (Bld) [Volum e fraction]Ordered By: Renard Burgos on 04-01-2024 Hematocrit (Bld) [Volume fraction] 41.7 % 40-54 [facility] Hemoglobin measurementOrdere d By: Renard Burgos on 04-01-2024 Hemoglobin (Bld) [Mass/Vol] 13.6 g/dL 13.0-16.5 [facility] Immature granulocytes/100 WB C Auto (Bld)Ordered By: Renard Burgos on 04-01-2024 Immature granulocytes/100 WBC (Bld) 0.300 % 0.0-0.9 [facility] Comment on above: IG% - Immature Granu locytes (promyelocytes, myelocytes and metamyelocytes) > 1% indicates that a LEFT SHIFT is Present. Lymphocytes Auto (Unsp spec) [#/Vol]Ordered By: Renard Burgos on 04-01-2024 Lymphocytes (Bld) [#/Vol] 1.97 10*3/uL 0.83-4.51 [facility] Lymphocytes/100 WBC Auto (Un sp spec)Ordered By: Renard Burgos on 04-01-2024 Lymphocytes/100 WBC (Bld) 20.0 % 19-41 [facility] MCV (mean corpuscular volume ) determinationOrdered By: Renard Burgos on 04-01-2024 MCV (RBC) [Entitic vol] 91.0 fL 80-94 [facility] Mean corpuscular hemoglobin (MCH) determinationOrdered By: Renard Burgos on 04-01-2024 MCH (RBC) [Entitic mass] 29.7 pg 27.0-32.0 [facility] Mean corpuscular hemoglobin concentration (MCHC) determinationOrdered By: Renard Burgos on 04-01-2024 MCHC (RBC) [Mass/Vol] 32.6 g/dL 32-36 [facility] Mean platelet volume determi nationOrdered By: Renard Burgos on 04-01-2024 Platelet mean volume (Bld) [Entitic vol] 11.3 fL 6.2-12.0 [facility] Monocyte percentageOrdered B y: Renard Burgos on 04-01-2024 Monocytes/100 WBC (Bld) 7.1 % 0-10 [facility] Neutrophil percentageOrdered By: Renard Burgos on 04-01-2024 Neutrophils/100 WBC (Bld) 71.8 % High 47-70 [facility] Nucleated red blood cell per centageOrdered By: Renard Burgos on 04-01-2024 Nucleated RBC/100 WBC (Bld) [Ratio] 0 % 0-5 [facility] Platelet countOrdered By: Garrick Bhatt on 04-01-2024 Platelets (Bld) [#/Vol] 195 10*3/uL 150-450 [facility] RBC Auto (Bld) [#/Vol]Ordere d By: Renard Burgos on 04-01-2024 RBC (Bld) [#/Vol] 4.58 10*6/uL Low 4.6-6.2 [facility] White blood cell (WBC) count Ordered By: Renard Burgos on 04-01-2024 WBC (Bld) [#/Vol] 9.8 10*3/uL 4.4-11.0 [facility] Absolute neutrophil countOrd ered By: Renard Burgos on 03-25-2024 Neutrophils (Bld) [#/Vol] 5.4 10*3/uL 2.0-7.7 [facility] Basophil percentageOrdered B y: Renard Burgos on 03-25-2024 Basophils/100 WBC (Bld) 0.5 % 0-1 [facility] CBC W/Diff, Automatedon 03-02 Absolute Lymph 2.14 X10 3/uL Normal 0.83-4.51 [facility] Comment on above: Order Comment: 109-1 Performed By: #### L 100.0100 ####[facility] [address] [place], [address] Absolute Neut 5.4 X10 3/uL Normal 2.0-7.7 [facility] Comment on above: Order Comment: 109-1 Performed By: #### L 100.0100 ####[facility] [address] [place], [address] Basophils/100 WBC (Bld) 0.5 % Normal 0-1 [facility] Comment on above: Order Comment: 109-1 Performed By: #### L 100.0100 ####[facility] [address] [place], [address] Eosinophils/100 WBC (Bld) 0.7 % Normal 0-5 [facility] Comment on above: Order Comment: 109-1 Performed By: #### L 100.0100 ####[facility] [address] [place], [address] Erythrocyte distribution width (RBC) [Ratio] 12.7 % Normal 11.6-14.6 [facility] Comment on above: Order Comment: 109-1 Performed By: #### L 100.0100 ####[facility] [address] [place], [address] Hematocrit (Bld) [Volume fraction] 42.3 % Normal 40-54 [facility] Comment on above: Order Comment: 109-1 Performed By: #### L 100.0100 ####[facility] [address] [place], [address] Hemoglobin (Bld) [Mass/Vol] 13.7 g/dL Normal 13.0-16.5 [facility] Comment on above: Order Comment: 109-1 Performed By: #### L 100.0100 ####[facility] [address] [place], [address] IG% 0.500 Normal 0.0-0.9 [facility] Comment on above: Order Comment: 109-1 Result Comment: IG% - Immature Granulocytes (promyelocytes, myelocytes andmetamyelocytes) > 1% indicates that a LEFT SHIFT is Present. Performed By: #### L 100.0100 ####[facility] [address] [place], [address] Lymphocytes/100 WBC (Bld) 25.8 % Normal 19-41 [facility] Comment on above: Order Comment: 109-1 Performed By: #### L 100.0100 ####[facility] [address] [place], [address] MCH (RBC) [Entitic mass] 29.2 pg Normal 27.0-32.0 [facility] Comment on above: Order Comment: 109-1 Performed By: #### L 100.0100 ####[facility] [address] [place], [address] MCHC (RBC) [Mass/Vol] 32.4 g/dL Normal 32-36 [facility] Comment on above: Order Comment: 109-1 Performed By: #### L 100.0100 ####[facility] [address] [place], [address] MCV (RBC) [Entitic vol] 90.2 fL Normal 80-94 [facility] Comment on above: Order Comment: 109-1 Performed By: #### L 100.0100 ####[facility] [address] [place], [address] Monocytes/100 WBC (Bld) 8.0 % Normal 0-10 [facility] Comment on above: Order Comment: 109-1 Performed By: #### L 100.0100 ####[facility] [address] [place], [address] Neutrophils/100 WBC (Bld) 64.5 % Normal 47-70 [facility] Comment on above: Order Comment: 109-1 Performed By: #### L 100.0100 ####[facility] [address] [place], [address] Nucleated RBC (Bld) [#/Vol] 0 10*3/uL Normal 0-5 [facility] Comment on above: Order Comment: 109-1 Performed By: #### L 100.0100 ####[facility] [address] [place], [address] Platelet mean volume (Bld) [Entitic vol] 11.2 fL Normal 6.2-12.0 [facility] Comment on above: Order Comment: 109-1 Performed By: #### L 100.0100 ####[facility] [address] [place], [address] Platelets (Bld) [#/Vol] 204 10*3/uL Normal 150-450 [facility] Comment on above: Order Comment: 109-1 Performed By: #### L 100.0100 ####[facility] [address] [place], [address] RBC (Bld) [#/Vol] 4.69 10*6/uL Normal 4.6-6.2 [facility] Comment on above: Order Comment: 109-1 Performed By: #### L 100.0100 ####[facility] [address] [place], [address] RDW SD 41.8 fl Normal 35.1-43.9 [facility] Comment on above: Order Comment: 109-1 Performed By: #### L 100.0100 ####[facility] [address] [place], [address] WBC (Bld) [#/Vol] 8.3 10*3/uL Normal 4.4-11.0 [facility] Comment on above: Order Comment: 109-1 Performed By: #### L 100.0100 ####[facility] [address] [place], [address] Eosinophil percentageOrdered By: Renard Burgos on 03-25-2024 Eosinophils/100 WBC (Bld) 0.7 % 0-5 [facility] Erythrocyte distribution wid th ratioOrdered By: Renard Burgos on 03-25-2024 Erythrocyte distribution width (RBC) [Ratio] 12.7 % 11.6-14.6 [facility] Erythrocyte distribution wid th standard deviationOrdered By: Renard Burgos on 03-25-2024 Erythrocyte distribution width (RBC) [Entitic vol] 41.8 fL 35.1-43.9 [facility] Hematocrit Auto (Bld) [Volum e fraction]Ordered By: Renard Burgos on 03-25-2024 Hematocrit (Bld) [Volume fraction] 42.3 % 40-54 [facility] Hemoglobin measurementOrdere d By: Renard Burgos on 03-25-2024 Hemoglobin (Bld) [Mass/Vol] 13.7 g/dL 13.0-16.5 [facility] Immature granulocytes/100 WB C Auto (Bld)Ordered By: Renard Burgos on 03-25-2024 Immature granulocytes/100 WBC (Bld) 0.500 % 0.0-0.9 [facility] Comment on above: IG% - Immature Granu locytes (promyelocytes, myelocytes and metamyelocytes) > 1% indicates that a LEFT SHIFT is Present. Lymphocytes Auto (Unsp spec) [#/Vol]Ordered By: Renard Burgos on 03-25-2024 Lymphocytes (Bld) [#/Vol] 2.14 10*3/uL 0.83-4.51 [facility] Lymphocytes/100 WBC Auto (Un sp spec)Ordered By: Renard Burgos on 03-25-2024 Lymphocytes/100 WBC (Bld) 25.8 % 19-41 [facility] MCV (mean corpuscular volume ) determinationOrdered By: Renard Burgos on 03-25-2024 MCV (RBC) [Entitic vol] 90.2 fL 80-94 [facility] Mean corpuscular hemoglobin (MCH) determinationOrdered By: Renard Burgos on 03-25-2024 MCH (RBC) [Entitic mass] 29.2 pg 27.0-32.0 [facility] Mean corpuscular hemoglobin concentration (MCHC) determinationOrdered By: Renard Burgos on 03-25-2024 MCHC (RBC) [Mass/Vol] 32.4 g/dL 32-36 [facility] Mean platelet volume determi nationOrdered By: Renard Burgos on 03-25-2024 Platelet mean volume (Bld) [Entitic vol] 11.2 fL 6.2-12.0 [facility] Monocyte percentageOrdered B y: Renard Burgos on 03-25-2024 Monocytes/100 WBC (Bld) 8.0 % 0-10 [facility] Neutrophil percentageOrdered By: Renard Burgos on 03-25-2024 Neutrophils/100 WBC (Bld) 64.5 % 47-70 [facility] Nucleated red blood cell per centageOrdered By: Renard Burgos on 03-25-2024 Nucleated RBC/100 WBC (Bld) [Ratio] 0 % 0-5 [facility] Platelet countOrdered By: Garrick Bhatt on 03-25-2024 Platelets (Bld) [#/Vol] 204 10*3/uL 150-450 [facility] RBC Auto (Bld) [#/Vol]Ordere d By: Renard Burgos on 03-25-2024 RBC (Bld) [#/Vol] 4.69 10*6/uL 4.6-6.2 [facility] White blood cell (WBC) count Ordered By: Renard Burgos on 03-25-2024 WBC (Bld) [#/Vol] 8.3 10*3/uL 4.4-11.0 [facility] Absolute neutrophil countOrd ered By: Renard Burgos on 03-18-2024 Neutrophils (Bld) [#/Vol] 5.2 10*3/uL 2.0-7.7 [facility] Basophil percentageOrdered B y: Renard Burgos on 03-18-2024 Basophils/100 WBC (Bld) 0.6 % 0-1 [facility] CBC W/Diff, Automatedon 03-01 Absolute Lymph 2.23 X10 3/uL Normal 0.83-4.51 [facility] Comment on above: Order Comment: 109.1 Performed By: #### L 100.0100 ####[facility] [address] [place], [address] Absolute Neut 5.2 X10 3/uL Normal 2.0-7.7 [facility] Comment on above: Order Comment: 109.1 Performed By: #### L 100.0100 ####[facility] [address] [place], [address] Basophils/100 WBC (Bld) 0.6 % Normal 0-1 [facility] Comment on above: Order Comment: 109.1 Performed By: #### L 100.0100 ####[facility] [address] [place], [address] Eosinophils/100 WBC (Bld) 0.7 % Normal 0-5 [facility] Comment on above: Order Comment: 109.1 Performed By: #### L 100.0100 ####[facility] [address] [place], [address] Erythrocyte distribution width (RBC) [Ratio] 12.8 % Normal 11.6-14.6 [facility] Comment on above: Order Comment: 109.1 Performed By: #### L 100.0100 ####[facility] [address] [place], [address] Hematocrit (Bld) [Volume fraction] 42.0 % Normal 40-54 [facility] Comment on above: Order Comment: 109.1 Performed By: #### L 100.0100 ####[facility] [address] [place], [address] Hemoglobin (Bld) [Mass/Vol] 13.6 g/dL Normal 13.0-16.5 [facility] Comment on above: Order Comment: 109.1 Performed By: #### L 100.0100 ####[facility] [address] [place], [address] IG% 0.500 Normal 0.0-0.9 [facility] Comment on above: Order Comment: 109.1 Result Comment: IG% - Immature Granulocytes (promyelocytes, myelocytes andmetamyelocytes) > 1% indicates that a LEFT SHIFT is Present. Performed By: #### L 100.0100 ####[facility] [address] [place], [address] Lymphocytes/100 WBC (Bld) 27.0 % Normal 19-41 [facility] Comment on above: Order Comment: 109.1 Performed By: #### L 100.0100 ####[facility] [address] [place], [address] MCH (RBC) [Entitic mass] 29.5 pg Normal 27.0-32.0 [facility] Comment on above: Order Comment: 109.1 Performed By: #### L 100.0100 ####[facility] [address] [place] [facility], [address] MCHC (RBC) [Mass/Vol] 32.4 g/dL Normal 32-36 [facility] Comment on above: Order Comment: 109.1 Performed By: #### L 100.0100 ####[facility] [address] [place], [address] MCV (RBC) [Entitic vol] 91.1 fL Normal 80-94 [facility] Comment on above: Order Comment: 109.1 Performed By: #### L 100.0100 ####[facility] [address] [place], [address] Monocytes/100 WBC (Bld) 8.5 % Normal 0-10 [facility] Comment on above: Order Comment: 109.1 Performed By: #### L 100.0100 ####[facility] [address] [place], [address] Neutrophils/100 WBC (Bld) 62.7 % Normal 47-70 [facility] Comment on above: Order Comment: 109.1 Performed By: #### L 100.0100 ####[facility] [address] [place], [address] Nucleated RBC (Bld) [#/Vol] 0 10*3/uL Normal 0-5 [facility] Comment on above: Order Comment: 109.1 Performed By: #### L 100.0100 ####[facility] [address] [place], [address] Platelet mean volume (Bld) [Entitic vol] 10.8 fL Normal 6.2-12.0 [facility] Comment on above: Order Comment: 109.1 Performed By: #### L 100.0100 ####[facility] [address] [place], [address] Platelets (Bld) [#/Vol] 211 10*3/uL Normal 150-450 [facility] Comment on above: Order Comment: 109.1 Performed By: #### L 100.0100 ####[facility] [address] [place], [address] RBC (Bld) [#/Vol] 4.61 10*6/uL Normal 4.6-6.2 [facility] Comment on above: Order Comment: 109.1 Performed By: #### L 100.0100 ####[facility] [address] [place], [address] RDW SD 42.3 fl Normal 35.1-43.9 [facility] Comment on above: Order Comment: 109.1 Performed By: #### L 100.0100 ####[facility] [address] [place], [address] WBC (Bld) [#/Vol] 8.3 10*3/uL Normal 4.4-11.0 [facility] Comment on above: Order Comment: 109.1 Performed By: #### L 100.0100 ####[facility] [address] [place], [address] Eosinophil percentageOrdered By: Renard Burgos on 03-18-2024 Eosinophils/100 WBC (Bld) 0.7 % 0-5 [facility] Erythrocyte distribution wid th ratioOrdered By: Renard Burgos on 03-18-2024 Erythrocyte distribution width (RBC) [Ratio] 12.8 % 11.6-14.6 [facility] Erythrocyte distribution wid th standard deviationOrdered By: Renard Burgos on 03-18-2024 Erythrocyte distribution width (RBC) [Entitic vol] 42.3 fL 35.1-43.9 [facility] Hematocrit Auto (Bld) [Volum e fraction]Ordered By: Renard Burgos on 03-18-2024 Hematocrit (Bld) [Volume fraction] 42.0 % 40-54 [facility] Hemoglobin measurementOrdere d By: Renard Burgos on 03-18-2024 Hemoglobin (Bld) [Mass/Vol] 13.6 g/dL 13.0-16.5 [facility] Immature granulocytes/100 WB C Auto (Bld)Ordered By: Renard Burgos on 03-18-2024 Immature granulocytes/100 WBC (Bld) 0.500 % 0.0-0.9 [facility] Comment on above: IG% - Immature Granu locytes (promyelocytes, myelocytes and metamyelocytes) > 1% indicates that a LEFT SHIFT is Present. Lymphocytes Auto (Unsp spec) [#/Vol]Ordered By: Renard Burgos on 03-18-2024 Lymphocytes (Bld) [#/Vol] 2.23 10*3/uL 0.83-4.51 [facility] Lymphocytes/100 WBC Auto (Un sp spec)Ordered By: Renard Burgos on 03-18-2024 Lymphocytes/100 WBC (Bld) 27.0 % 19-41 [facility] MCV (mean corpuscular volume ) determinationOrdered By: Renard Burgos on 03-18-2024 MCV (RBC) [Entitic vol] 91.1 fL 80-94 [facility] Mean corpuscular hemoglobin (MCH) determinationOrdered By: Renard Burgos on 03-18-2024 MCH (RBC) [Entitic mass] 29.5 pg 27.0-32.0 [facility] Mean corpuscular hemoglobin concentration (MCHC) determinationOrdered By: Renard Burgos on 03-18-2024 MCHC (RBC) [Mass/Vol] 32.4 g/dL 32-36 [facility] Mean platelet volume determi nationOrdered By: Renard Burgos on 03-18-2024 Platelet mean volume (Bld) [Entitic vol] 10.8 fL 6.2-12.0 [facility] Monocyte percentageOrdered B y: Renard Burgos on 03-18-2024 Monocytes/100 WBC (Bld) 8.5 % 0-10 [facility] Neutrophil percentageOrdered By: Renard Burgos on 03-18-2024 Neutrophils/100 WBC (Bld) 62.7 % 47-70 [facility] Nucleated red blood cell per centageOrdered By: Renard Burgos on 03-18-2024 Nucleated RBC/100 WBC (Bld) [Ratio] 0 % 0-5 [facility] Platelet countOrdered By: Garrick Bhatt on 03-18-2024 Platelets (Bld) [#/Vol] 211 10*3/uL 150-450 [facility] RBC Auto (Bld) [#/Vol]Ordere d By: Renard Burgos on 03-18-2024 RBC (Bld) [#/Vol] 4.61 10*6/uL 4.6-6.2 [facility] White blood cell (WBC) count Ordered By: Renard Burgos on 03-18-2024 WBC (Bld) [#/Vol] 8.3 10*3/uL 4.4-11.0 [facility] Absolute neutrophil countOrd ered By: Renard Burgos on 03-11-2024 Neutrophils (Bld) [#/Vol] 6.2 10*3/uL 2.0-7.7 [facility] Basophil percentageOrdered B y: Renard Burgos on 03-11-2024 Basophils/100 WBC (Bld) 0.5 % 0-1 [facility] Eosinophil percentageOrdered By: Renard Burgos on 03-11-2024 Eosinophils/100 WBC (Bld) 0.6 % 0-5 [facility] Erythrocyte distribution wid th ratioOrdered By: Renard Burgos on 03-11-2024 Erythrocyte distribution width (RBC) [Ratio] 12.7 % 11.6-14.6 [facility] Erythrocyte distribution wid th standard deviationOrdered By: Renard Burgos on 03-11-2024 Erythrocyte distribution width (RBC) [Entitic vol] 41.5 fL 35.1-43.9 [facility] Hematocrit Auto (Bld) [Volum e fraction]Ordered By: Renard Burgos on 03-11-2024 Hematocrit (Bld) [Volume fraction] 41.5 % 40-54 [facility] Hemoglobin measurementOrdere d By: Renard Burgos on 03-11-2024 Hemoglobin (Bld) [Mass/Vol] 13.8 g/dL 13.0-16.5 [facility] Immature granulocytes/100 WB C Auto (Bld)Ordered By: Renard Burgos on 03-11-2024 Immature granulocytes/100 WBC (Bld) 0.500 % 0.0-0.9 [facility] Comment on above: IG% - Immature Granu locytes (promyelocytes, myelocytes and metamyelocytes) > 1% indicates that a LEFT SHIFT is Present. Lymphocytes Auto (Unsp spec) [#/Vol]Ordered By: Renard Burgos on 03-11-2024 Lymphocytes (Bld) [#/Vol] 2.50 10*3/uL 0.83-4.51 [facility] Lymphocytes/100 WBC Auto (Un sp spec)Ordered By: Renard Burgos on 03-11-2024 Lymphocytes/100 WBC (Bld) 25.6 % 19-41 [facility] MCV (mean corpuscular volume ) determinationOrdered By: Renard Burgos on 03-11-2024 MCV (RBC) [Entitic vol] 91.4 fL 80-94 [facility] Mean corpuscular hemoglobin (MCH) determinationOrdered By: Renard Burgos on 03-11-2024 MCH (RBC) [Entitic mass] 30.4 pg 27.0-32.0 [facility] Mean corpuscular hemoglobin concentration (MCHC) determinationOrdered By: Renard Burgos on 03-11-2024 MCHC (RBC) [Mass/Vol] 33.3 g/dL 32-36 [facility] Mean platelet volume determi nationOrdered By: Renard Burgos on 03-11-2024 Platelet mean volume (Bld) [Entitic vol] 11.0 fL 6.2-12.0 [facility] Monocyte percentageOrdered B y: Renard Burgos on 03-11-2024 Monocytes/100 WBC (Bld) 9.0 % 0-10 [facility] Neutrophil percentageOrdered By: Renard Burgos on 03-11-2024 Neutrophils/100 WBC (Bld) 63.8 % 47-70 [facility] Nucleated red blood cell per centageOrdered By: Renard Burgos on 03-11-2024 Nucleated RBC/100 WBC (Bld) [Ratio] 0 % 0-5 [facility] Platelet countOrdered By: Garrick Bhatt on 03-11-2024 Platelets (Bld) [#/Vol] 220 10*3/uL 150-450 [facility] RBC Auto (Bld) [#/Vol]Ordere d By: Renard Burgos on 03-11-2024 RBC (Bld) [#/Vol] 4.54 10*6/uL Low 4.6-6.2 [facility] White blood cell (WBC) count Ordered By: Renard Burgos on 03-11-2024 WBC (Bld) [#/Vol] 9.8 10*3/uL 4.4-11.0 [facility] Progress Noteon 11-22-2023 Progress Note Speech-Language Pathology [...] despite effort. 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 Frequency: Per treating BAFFLE MOUNTER Barriers: large osteophytes, bridging with anterior projection [...] Prior MBSS?: No, [facility] Current Diet: Puree diet with ?liquid (no information from [place]) Textures tested: - thin liquid, (cup edge) - mildly thick liquid, (cup edge) - puree, (teaspoon) Patient position: lateral Past Medical History: Past Medical History: Diagnosis Date TREVER (acute kidney injury) (CMS/HCC) ([facility]) Alcohol abuse 07/08/2018 Anxiety C1 spinal cord injury ([facility]/HCC) ([facility]) Depression Fall 06/2018 Schizophrenia (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) 08/15/2018 Prolonged Q-T interval on ECG 08/15/2018 Abdominal wall abscess 08/15/2018 Central cord syndrome ([facility]/HCC) ([facility]) 08/15/2018 Respiratory failure after trauma ([facility]) 08/15/2018 Pressure ulcer of sacral region, stage [address] ([facility]) 08/09/2018 Urinary retention 07/28/2018 Acute respiratory failure with hypoxia ([facility]) 07/26/2018 Mild bibasilar atelectasis 07/26/2018 Hospital-acquired pneumonia 07/26/2018 Bilateral pleural effusion 07/26/2018 Ileus (CMS/HCC) ([facility]) 07/23/2018 TREVER (acute kidney injury) ([facility]) 07/23/2018 Hypokalemia 07/21/2018 Vertebral artery occlusion, bilateral 07/11/2018 Vitamin D insufficiency 07/10/2018 Alcohol abuse 07/08/2018 Closed wedge compression fracture of first thoracic vertebra ([facility]) 07/08/2018 Traumatic nondisp spondylolisthesis of C3 vertebra with closed fx, initial encounter ([facility]) 07/08/2018 Closed fracture dislocation of cervical spine ([facility]) 07/08/2018 Pain: Pt denies any current pain. Reason for current admission: Pt with h/o of PEG and trach from 2019. Pt is currently decannulated. H/o [employer] cervical fusion C2-C6. Noted very large connective [...] posterior spill (more content not included)... Normal [facility] RF videography Hypopharynx a nd Esophagus [...] Name[facility] 1955 [id number] Exam Date/Time: 11/22/2023 12:53 Procedure: FL MODIFIED [...] not visualized in this exam for evaluation. [facility] Nir Cancino MD - 11/22/2023 Patient Name: [facility]ATH[facility]OPER : 1955 [facility] [id number] Exam Date/Time: 11/22/2023 12:53 Procedure: FL MODIFIED [...] Signed Date/Time: 11/22/2023 1:[address] [facility] Radiology Study observation (narrative) [facility] RF videography Hypopharynx a nd Esophagus Views for swallowing function W speech and W barium contrast POOrdered By: Nir Cancino on 11-22-2023 [facility] Work Phone: CBC W Auto Differential pane l (Bld)on 10-02-2023 Basophils (Bld) [#/Vol] 0.0 10*3/uL 0.0 - 0.2 10*3/uL [facility] Basophils/100 WBC (Bld) 0.3 % 0.0 - 2.0 % [facility] Eosinophils (Bld) [#/Vol] 0.0 10*3/uL 0.0 - 0.5 10*3/uL [facility] Eosinophils/100 WBC (Bld) 0.0 % 0.0 - 6.0 % [facility] Erythrocyte distribution width (RBC) [Ratio] 13.0 % 11.5 - 15.0 % [facility] Hematocrit (Bld) [Volume fraction] 37.8 % Low 40.0 - 52.0 % [facility] Hemoglobin (Bld) [Mass/Vol] 13.0 g/dL 13.0 - 18.0 g/dL [facility] Immature granulocytes (Bld) [#/Vol] 0.1 10*3/uL High NINF - 0.1 10*3/uL [facility] Immature granulocytes/100 WBC (Bld) 0.5 % 0.0 - 2.0 % [facility] Interpretation and review of laboratory results Abnormal [facility] Lymphocytes (Bld) [#/Vol] 0.9 10*3/uL Low 1.0 - 4.3 10*3/uL [facility] Lymphocytes/100 WBC (Bld) 8.4 % Low 15.0 - 45.0 % [facility] MCH (RBC) [Entitic mass] 30.3 pg 26.0 - 34.[address] [facility] MCHC (RBC) [Mass/Vol] 34.4 % 30.5 - 36.0 % [facility] MCV (RBC) [Entitic vol] 88.1 fL 77.0 - 99.0 fL [facility] Monocytes (Bld) [#/Vol] 0.9 10*3/uL 0.0 - 0.9 10*3/uL [facility] Monocytes/100 WBC (Bld) 8.2 % 5.0 - 13.0 % [facility] Neutrophils (Bld) [#/Vol] 8.9 10*3/uL High 1.8 - 7.5 10*3/uL [facility] Neutrophils/100 WBC (Bld) 82.6 % High 38.0 - 82.0 % [facility] Nucleated RBC/100 WBC (Bld) [Ratio] 0.0 % [facility] Platelet mean volume (Bld) [Entitic vol] 10.7 fL 9.0 - 12.[address] [facility] Platelets (Bld) [#/Vol] 148 10*3/uL 140 - 440 10*3/uL [facility] RBC (Bld) [#/Vol] 4.29 10*6/uL Low 4.40 - 5.9 0 10*6/uL [facility] WBC (Bld) [#/Vol] 10.7 10*3/uL 3.6 - 10.7 10*3/uL [facility] CBC WITH AUTO DIFFERENTIALon 10-02-2023 Basophils (Bld) [#/Vol] 0.0 10*3/uL Normal 0.0-0.2 [facility] Comment on above: Performed By: #### L [id number] #### Scow Der[employer] Operator: CYNDI LILLY ([id number]) [facility] ([facility]) [address] Basophils/100 WBC (Bld) 0.3 % Normal 0.0-2.0 [facility] Comment on above: Performed By: #### L [id number] #### [employer] Operator: CYNDI LILLY ([id number]) [facility] ([facility]) [address] [place] [address] Eosinophils (Bld) [#/Vol] 0.0 10*3/uL Normal 0.0-0.5 [facility] Comment on above: Performed By: #### L [id number] #### [employer] Der[employer] Operator: CYNDI LILLY ([id number]) [facility] ([facility]) [address] Eosinophils/100 WBC (Bld) 0.0 % Normal 0.0-6.0 [facility] Comment on above: Performed By: #### L [id number] #### [employer] Operator: CYNDI LILLY ([id number]) [facility] ([facility]) [address] Erythrocyte distribution width (RBC) [Ratio] 13.0 % Normal 11.5-15.[address] [facility] Comment on above: Performed By: #### L [id number] #### [employer] Operator: CYNDI LILLY ([id number]) [facility] [address] Hematocrit (Bld) [Volume fraction] 37.8 % Low 40.0-52.[address] [facility] Comment on above: Performed By: #### L [id number] #### Sc[employer] Der[employer] Operator: CYNDI LILLY ([id number]) [facility] ([facility]) [address] Hemoglobin (Bld) [Mass/Vol] 13.0 g/dL Normal 13.0-18.[address] [facility] Comment on above: Performed By: #### L [id number] #### [employer] Der[employer] Operator: CYNDI LILLY ([id number]) [facility] ([facility]) [address] IMMATURE GRANS % 0.5 % Normal 0.0-2.0 [facility] Comment on above: Performed By: #### L [id number] #### Sc[employer] Der[employer] Operator: CYNDI LILLY ([id number]) [facility] ([facility]) [address] IMMATURE GRANS ABSOLUTE 0.1 10*3/uL High <0.1 [facility] Comment on above: Performed By: #### L [id number] #### Sc[employer] Der[employer] Operator: CYNDI LILLY ([id number]) [facility] ([facility]) [address] Lymphocytes (Bld) [#/Vol] 0.9 10*3/uL Low 1.0-4.3 [facility] Comment on above: Performed By: #### L [id number] #### [employer] Der[employer] Operator: CYNDI LILLY ([id number]) [facility] ([facility]) [address] [place] [address] [place] Lymphocytes/100 WBC (Bld) 8.4 % Low 15.0-45.0 [facility] Comment on above: Performed By: #### L [id number] #### Sc[employer] Derrick Operator: CYNDI DRIVERRADHA ([id number]) [facility] [address] MCH (RBC) [Entitic mass] 30.3 pg Normal 26.0-34.0 [facility] Comment on above: Performed By: #### L [id number] #### Sc[employer] Der[employer] Operator: CYNDI DRIVERRADHA ([id number]) [facility] ([facility]) [address] MCHC 34.4 % Normal 30.5-36.0 [facility] Comment on above: Performed By: #### L [id number] #### Sc[employer] Der[employer] Operator: CYNDI DRIVERRADHA ([id number]) [facility] ([facility]) [address] MCV (RBC) [Entitic vol] 88.1 fL Normal 77.0-99.0 [facility] Comment on above: Performed By: #### L [id number] #### Sc[employer] Der[employer] Operator: CYNDI LILLY ([id number]) [facility] ([facility]) [address] Monocytes (Bld) [#/Vol] 0.9 10*3/uL Normal 0.0-0.9 [facility] Comment on above: Performed By: #### L [id number] #### Sc[employer] Der[employer] Operator: CYNDI LILLY ([id number]) [facility] [address] [place] [address] [place] Monocytes/100 WBC (Bld) 8.2 % Normal 5.0-13.0 [facility] Comment on above: Performed By: #### L [id number] #### Sc[employer] Der[employer] Operator: CYNDI LILLY ([id number]) [facility] ([facility] [address] NEUTROPHILS ABSOLUTE 8.9 10*3/uL High 1.8-7.5 [facility] Comment on above: Performed By: #### L [id number] #### Sc[employer] Derrick Operator: CYNDI LILLY ([id number]) [facility] [place] ([facility]) [address] Neutrophils/100 WBC (Bld) 82.6 % High 38.0-82.[address] [facility] Comment on above: Performed By: #### L [id number] #### Sc[employer] Derrick Operator: CYNDI LILLY ([id number]) [facility] [place] ([facility]) [address] NRBC 0.0 /100 WBCs Normal 0.0-2.0 [facility] Comment on above: Performed By: #### L [id number] #### Sc[employer] Derrick Operator: CYNDI LILLY ([id number]) [facility] ([facility]) [address] Platelet mean volume (Bld) [Entitic vol] 10.7 fL Normal 9.0-12.[address] [facility] Comment on above: Performed By: #### L [id number] #### Sc[employer] Der[employer] Operator: CYNDI LILLY ([id number]) [facility] [place] ([facility]) [address] [place] [address] [place] Platelets (Bld) [#/Vol] 148 10*3/uL Normal 140-[address] [facility] Comment on above: Performed By: #### L [id number] #### Sc[employer] Der[employer] Operator: CYNDI LILLY ([id number]) [facility] [place] ([facility]) [address] [place] [address] [place] RBC (Bld) [#/Vol] 4.29 10*6/uL Low 4.40-5.[address] [facility] Comment on above: Performed By: #### L [id number] #### Sc[employer] Der[employer] Operator: CYNDI LILLY ([id number]) [facility] [place] ([facility]) [address] [place] [address] [place] WBC (Bld) [#/Vol] 10.7 10*3/uL Normal 3.6-10.[address] [facility] Comment on above: Performed By: #### L [id number] #### Sc[employer] Der[employer] Operator: CYNDI LILLY ([id number]) [facility] ([facility]) [address] COMPREHENSIVE METABOLIC PANE Reji 10-02-2023 Albumin [Mass/Vol] 3.7 g/dL Normal 3.5-5.[address] [facility] Comment on above: Performed By: #### L [id number], [id number] ####Sc[employer] Derrick Operator: CYNDI LILLY ([id number])[facility] [place] ([facility])[address] ALP [Catalytic activity/Vol] 78 U/L Normal 38-[address] [facility] Comment on above: Performed By: #### L [id number], [id number] ####Scow Derrick Operator: CYNDI LILLY ([id number])[facility] [place] ([facility])[address] ALT [Catalytic activity/Vol] 21 U/L Normal 0-[address] [facility] Comment on above: Performed By: #### L [id number], [id number] ####Sc[employer] Derrick Operator: CYNDI LILLY ([id number])[facility] [place] ([facility])[address] Anion gap [Moles/Vol] 10 mmol/L Normal 3-13 [facility] Comment on above: Performed By: #### L AB17, [id number] ####Scow Derrick Operator: CYNDI LILLY ([id number])[facility] [place] ([facility])[address] AST [Catalytic activity/Vol] 29 U/L Normal 15-[address] [facility] Comment on above: Performed By: #### L AB17, [id number] ####Scow Derrick Operator: CYNDI LILLY ([id number])[facility] [place] ([facility])[address] [address] Bilirubin [Mass/Vol] 1.1 mg/dL Normal 0.2-1.3 [facility] Comment on above: Performed By: #### Alban AB17, [id number] ####Scow Derrick Operator: CYNDI LILLY ([id number])[facility] (SB[facility]AB)[address] Calcium [Mass/Vol] 7.8 mg/dL Low 8.4-10.[address] [facility] Comment on above: Performed By: #### L AB17, [id number] ####Scow Derrick Operator: CYNDI LILLY ([id number])[facility] (SBHLAB)[address] Chloride [Moles/Vol] 102 mmol/L Normal 98-107 [facility] Comment on above: Performed By: #### Alban AB17, [id number] ####Scow Derrick Operator: CYNDI LILLY ([id number])[facility] (SBHLAB)[address] CO2 [Moles/Vol] 23 mmol/L Normal 22-30 [facility] Comment on above: Performed By: #### Alban AB17, [id number] ####Scow Derrick Operator: CYNDI LILLY ([id number])[facility] ([facility] Creatinine [Mass/Vol] 0.58 mg/dL Low 0.66-1.25 [facility] Comment on above: Performed By: #### L AB17, [id number] ####Scow Derrick Operator: CYNDI LILLY ([id number])[facility] (SBHLAB)[address] GLOMERULAR FILTRATION RATE ML/MIN/1.73 SQ M.PREDICTED >90.0 Normal >60.[address] [facility] Comment on above: Result Comment: Calc ulation based on the Chronic Kidney Disease Epidemiology Collaboration (CKD-EPI) equation refit without adjustment for race Performed By: #### L AB17, [id number] ####Scow Derrick Operator: CYNDI LILLY ([id number])[facility]ENTERu[facility] [place] (SBHLAB)[address] Glucose [Mass/Vol] 111 mg/dL High 70-[address] [facility] Comment on above: Performed By: #### L AB17, [id number] ####Scow Derrick Operator: CYNDI LILLY ([id number])[facility] (SBHLAB)[address] Potassium [Moles/Vol] 4.0 mmol/L Normal 3.5-5.1 [facility] Comment on above: Performed By: #### L AB17, [id number] ####Scow Derrick Operator: CYNDI LILLY ([id number])[facility] (SBHLAB)[address] Protein [Mass/Vol] 6.5 g/dL Normal 6.3-8.[address] [facility] Comment on above: Performed By: #### L AB17, [id number] ####Scow Derrick Operator: CYNDI LILLY ([id number])[facility] (SBHLAB)[address] Sodium [Moles/Vol] 135 mmol/L Normal 135-[address] [facility] Comment on above: Performed By: #### L AB17, [id number] ####Scow Derrick Operator: CYNDI LILLY ([id number])[facility] (SBHLAB)[address] Urea nitrogen [Mass/Vol] 18 mg/dL Normal 9-[address] 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 EMS [...] has no complaints at this time. Normal [facility] CT Head WO contraston [address] evidence of an acute intracranial abnormality. Report Dictated on Electronically Signed By: Maria Eugenia Ruiz MD Electronically Signed Date/Time: 10/02/2023 11:09 AM EDT [facility] [employer] [facility] Patient Name: KATHYA HOOPER : 1955 Exam Date/Time: 10/02/2023 11:03 Procedure: CT HEAD WO IV CONTRAST Ordering Provider: TOLEDO AMY Reason For Exam: Neuro deficit, acute, stroke suspected EXAMINATION: CT HEAD WO IV CONTRAST HISTORY: Neuro deficit, acute, stroke suspected - - - - - [id number] - - - - TECHNIQUE: CT head [...] stroke suspected - - - - - [id number] - - - - TECHNIQUE: CT head [...] Signed Date/Time: 10/02/2023 11:[address] [facility] Radiology Study observation (narrative) [facility] CT Head WO contrastOrdered B y: Maria Eugenia Joseph on 10-02-2023 [facility] [employer] Work Phone: Comprehensive metabolic 1998 panelon 10-02-2023 Albumin [Mass/Vol] 3.7 g/dL 3.5 - 5.0 g/dL [facility] ALP [Catalytic activity/Vol] 78 U/L 38 - 126 U/L [facility] ALT [Catalytic activity/Vol] 21 U/L 0 - 49 U/L [facility] Anion gap [Moles/Vol] 10 mmol/L 3 - 13 mmol/L [facility] AST [Catalytic activity/Vol] 29 U/L 15 - 46 U/L [facility] Bilirubin [Mass/Vol] 1.1 mg/dL 0.2 - 1 .3 mg/dL [facility] Calcium [Mass/Vol] 7.8 mg/dL Low 8.4 - 10. 4 mg/dL [facility] Chloride [Moles/Vol] 102 mmol/L 98 - 10 7 mmol/L [facility] CO2 [Moles/Vol] 23 mmol/L 22 - 30 mmol/L [facility] Creatinine [Mass/Vol] 0.58 mg/dL Low 0.66 - 1.25 mg/dL [facility] GFR/1.73 sq M.predicted MDRD (S/P/Bld) [Vol rate/Area] - PINF [facility] Comment on above: Calculation based on the Chronic Kidney Disease Epidemiology Collaboration (CKD-EPI) equation refit without adjustment for race Glucose [Mass/Vol] 111 mg/dL High 70 - 100 mg/dL [facility] Interpretation and review of laboratory results Abnormal [facility] Potassium [Moles/Vol] 4.0 mmol/L 3.5 - 5.1 mmol/L [facility] Protein [Mass/Vol] 6.5 g/dL 6.3 - 8.2 g/dL [facility] Sodium [Moles/Vol] 135 mmol/L 135 - 145 mmol/L [facility] Urea nitrogen [Mass/Vol] 18 mg/dL 9 - 20 mg/dL [facility] ECG 12-LEADon 10-02-2023 ECG 12-LEAD IMPRESSION: [...] This RN gave report to Marnie at [facility] at this time Mami Lantigua RN 10/02/23 1358 [facility] ED Nursing Note This RN went to evaluate patient, was on 2L o2 and does not wear at baseline, plan is dc, this RN turned o2 off to trial patient, spo2 monitor on Mami Lantigua RN 10/02/23 1325 [facility] ED Nursing Note Pt to ct via cart Eloisa Alfaro RN 10/02/23 1043 [facility] ED Nursing Note Pt was brought in vi [facility] [place] [facility] from [facility] for Left sided facial droop. Per EMS nurse is new and does not know patient very well but he is A&O x 2 at baseline. Per EMS the nurse states it was 20 mins ago. 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 EMS [...] facility. Hx of schizophrenia. BS 131. Normal [facility] ED Provider Noteon 4 ED Provider Note [facility] ED [...] History: Diagnosis Date TREVER (acute kidney injury) ([facility]) ([facility]) Alcohol abuse 07/08/2018 Anxiety C1 spinal cord injury ([facility]) ([facility]) Depression Fall 06/2018 Schizophrenia ([facility]) SURGICALHISTORY Past Surgical History: Procedure Laterality [...] EmergencyPhysician): Interpret (more content not included)... Normal [facility] ED Provider Note Emergency Department Encounter [...] are mis-transcribed.) Fei Farooq MD Acute Care [facility] Fei Farooq MD 10/02/23 1129 Normal [facility] Laboratory - Chemistry and C hemistry - challengeon 10-02-2023 Troponin I.cardiac [Mass/Vol] ng/mL NINF - 0.034 ng/mL [facility] Laboratory - Coagulationon 0 10-02-2023 aPTT Coag (PPP) [Time] 29.6 s 20.0 - 30.[address] [facility] INR Coag (PPP) [Relative time] 1.1 {INR} 0.9 - 1.1 [facility] Comment on above: Recommended Anticoag ulant [...] [Time] 11.6 s 9.0 - 12.0 s [facility] No Panel Informationon 10-01 Heart Rate [address] [facility] P [place] [address] [facility] CO Interval [address] [facility] QRS [place] -[address] [facility] QRSD Interval 159 ms [facility] QT Interval [address] [facility] QTC Interval [address] [facility] T Wave [place] [address] [facility] Sinus tachycardia Left bundle branch block ST elevation secondary to IVCD Electronically Signed On 10-02-2023 12:40:15 EDT by Fei Farooq Fei Lopez MD - 10/02/2023 IMPRESSION: Sinus tachycardia Left bundle branch block ST elevation secondary to IVCD Electronically Signed On 10-02-2023 12:40:15 EDT by Fei Farooq [facility] Interpretation and review of laboratory results Normal [facility] PROTIME AND APTTon aPTT Coag (Bld) [Time] 29.6 s Normal 20.0-30.5 [facility] Comment on above: Performed By: #### L [id number] ####Scow Derrick Operator: CYNDI LILLY ([id number])[facility] ([facility])[address] [place] [address] INR Coag (PPP) [Relative time] 1.1 {INR} Normal 0.9-1.[address] [facility] Comment on above: Result Comment: Yefri [...] prevent Myocardial Infarction Performed By: #### L [id number] ####Scow Derrick Operator: CYNDI LILLY ([id number])[facility]ENT[facility]uly [facility]EN ([facility])[address] [place] [address] PT Coag (PPP) [Time] 11.6 s Normal 9.0-12.0 [facility] Comment on above: Performed By: #### L [id number] ####Scow Derrick Operator: CYNDI LILLY ([id number])[facility] ([facility])[address] [place] [address] TROPONIN, WITH SERIAL REFLEX on 10-02-2023 Troponin I.cardiac [Mass/Vol] ng/mL Normal <0.[address] [facility] Comment on above: Result Comment: SHARON Stevens COMMENTS: Patients with high levels of Biotin oral intake (ie >5 mg/day) may have falsely decreased Troponin levels. Performed By: #### L AB17, [id number] ####Scow Derrick Operator: CYNDI LILLY ([id number])[facility] (SB[facility])[address] [place] [address] Troponin I.cardiac [Mass/Vol ]on 10-02-2023 Interpretation and review of laboratory results Normal [facility] Patients with high levels of Biotin oral intake (ie >5 mg/day) may have falsely decreased Troponin levels. [facility] XR Chest Single viewon 10-01 No acute cardiopulmonary disease. Report Dictated on Electronically Signed By: Maria Eugenia Ruiz MD Electronically Signed Date/Time: 10/02/2023 11:06 AM EDT [facility] Patient Name: KATHYA HOOPER : [...] spine and shoulders. No acute osseous findings. [facility] Maria Eugenia Ruiz MD - 10/02/2023 [...] Electronically Signed Date/Time: 10/02/2023 11:06 AM EDT [facility] Radiology Study observation (narrative) [facility] Absolute lymphocyte countOrd ered By: Renard Burgos on 08-07-2023 Lymphocytes Auto (Unsp spec) [#/Vol] 2.23 10*3/uL 0.83-4.51 [facility] Automated lymphocyte count a s percentage of total leukocytesOrdered By: Renard Burgos on 08-07-2023 Lymphocytes/100 WBC Auto (Unsp spec) 23.9 % 19-41 [facility] Basophil percentageOrdered B y: Renard Burgos on 08-07-2023 Basophils/100 WBC (Bld) 0.4 % 0-1 [facility] Eosinophils/100 WBC (Bld) 0.4 % 0-5 [facility] Hemoglobin (Bld) [Mass/Vol] 13.9 g/dL 13.0-16.5 [facility] Monocytes/100 WBC (Bld) 8.0 % 0-10 [facility] Neutrophils (Bld) [#/Vol] 6.2 10*3/uL 2.0-7.7 [facility] Neutrophils/100 WBC (Bld) 66.9 % 47-70 [facility] WBC (Bld) [#/Vol] 9.3 10*3/uL 4.4-11.0 [facility] Determination of erythrocyte mean corpuscular volume (MCV)Ordered By: Renard Burgos on 08-07-2023 MCV (RBC) [Entitic vol] 90.0 fL 80-94 [facility] Erythrocyte distribution wid th ratioOrdered By: Renard Burgos on 08-07-2023 Erythrocyte distribution width (RBC) [Ratio] 13.0 % 11.6-14.6 [facility] Erythrocyte distribution wid th standard deviationOrdered By: Renard Burgos on 08-07-2023 Erythrocyte distribution width (RBC) [Entitic vol] 42.5 fL 35.1-43.9 [facility] Hematocrit Auto (Bld) [Volum e fraction]Ordered By: Renard Burgos on 08-07-2023 Hematocrit (Bld) [Volume fraction] 42.5 % 40-54 [facility] Immature granulocytes/100 WB C Auto (Bld)Ordered By: Renard Burgos on 08-07-2023 Immature granulocytes/100 WBC (Bld) 0.400 % 0.0-0.9 [facility] Comment on above: IG% - Immature Granu locytes (promyelocytes, myelocytes and metamyelocytes) > 1% indicates that a LEFT SHIFT is Present. Laboratory - Hematology and Cell countsOrdered By: Renard Burgos on 08-07-2023 MCH (RBC) [Entitic mass] 29.4 pg 27.0-32.0 [facility] MCHC (RBC) [Mass/Vol] 32.7 g/dL 32-36 [facility] Nucleated RBC/100 WBC (Bld) [Ratio] 0 % 0-5 [facility] Platelet mean volume (Bld) [Entitic vol] 10.7 fL 6.2-12.0 [facility] Platelets (Bld) [#/Vol] 210 10*3/uL 150-450 [facility] RBC Auto (Bld) [#/Vol]Ordere d By: Renard Burgos on 08-07-2023 RBC (Bld) [#/Vol] 4.72 10*6/uL 4.6-6.2 [facility] Absolute lymphocyte countOrd ered By: Renard Burgos on 07-31-2023 Lymphocytes Auto (Unsp spec) [#/Vol] 2.04 10*3/uL 0.83-4.51 [facility] Automated lymphocyte count a s percentage of total leukocytesOrdered By: Renard Burgos on 07-31-2023 Lymphocytes/100 WBC Auto (Unsp spec) 24.2 % 19-41 [facility] Basophil percentageOrdered B y: Renard Burgos on 07-31-2023 Basophils/100 WBC (Bld) 0.6 % 0-1 [facility] Eosinophils/100 WBC (Bld) 0.6 % 0-5 [facility] Hemoglobin (Bld) [Mass/Vol] 13.9 g/dL 13.0-16.5 [facility] Monocytes/100 WBC (Bld) 8.5 % 0-10 [facility] Neutrophils (Bld) [#/Vol] 5.5 10*3/uL 2.0-7.7 [facility] Neutrophils/100 WBC (Bld) 65.7 % 47-70 [facility] WBC (Bld) [#/Vol] 8.4 10*3/uL 4.4-11.0 [facility] Determination of erythrocyte mean corpuscular volume (MCV)Ordered By: Renard Burgos on 07-31-2023 MCV (RBC) [Entitic vol] 89.7 fL 80-94 [facility] Erythrocyte distribution wid th ratioOrdered By: Renard Burgos on 07-31-2023 Erythrocyte distribution width (RBC) [Ratio] 12.8 % 11.6-14.6 [facility] Erythrocyte distribution wid th standard deviationOrdered By: Renard Burgos on 07-31-2023 Erythrocyte distribution width (RBC) [Entitic vol] 42.2 fL 35.1-43.9 [facility] Hematocrit Auto (Bld) [Volum e fraction]Ordered By: Renard Burgos on 07-31-2023 Hematocrit (Bld) [Volume fraction] 41.7 % 40-54 [facility] Immature granulocytes/100 WB C Auto (Bld)Ordered By: Renard Burgos on 07-31-2023 Immature granulocytes/100 WBC (Bld) 0.400 % 0.0-0.9 [facility] Comment on above: IG% - Immature Granu locytes (promyelocytes, myelocytes and metamyelocytes) > 1% indicates that a LEFT SHIFT is Present. Laboratory - Hematology and Cell countsOrdered By: Renard Burgos on 07-31-2023 MCH (RBC) [Entitic mass] 29.9 pg 27.0-32.0 [facility] MCHC (RBC) [Mass/Vol] 33.3 g/dL 32-36 [facility] Nucleated RBC/100 WBC (Bld) [Ratio] 0 % 0-5 [facility] Platelet mean volume (Bld) [Entitic vol] 10.6 fL 6.2-12.0 [facility] Platelets (Bld) [#/Vol] 201 10*3/uL 150-450 [facility] RBC Auto (Bld) [#/Vol]Ordere d By: Renard Burgos on 07-31-2023 RBC (Bld) [#/Vol] 4.65 10*6/uL 4.6-6.2 [facility] Absolute lymphocyte countOrd ered By: Renard Burgos on 07-24-2023 Lymphocytes Auto (Unsp spec) [#/Vol] 2.00 10*3/uL 0.83-4.51 [facility] Automated lymphocyte count a s percentage of total leukocytesOrdered By: Renard Burgos on 07-24-2023 Lymphocytes/100 WBC Auto (Unsp spec) 26.2 % 19-41 [facility] Basophil percentageOrdered B y: Renard Burgos on 07-24-2023 Basophils/100 WBC (Bld) 0.7 % 0-1 [facility] Eosinophils/100 WBC (Bld) 0.7 % 0-5 [facility] Hemoglobin (Bld) [Mass/Vol] 14.2 g/dL 13.0-16.5 [facility] Monocytes/100 WBC (Bld) 6.4 % 0-10 [facility] Neutrophils (Bld) [#/Vol] 5.0 10*3/uL 2.0-7.7 [facility] Neutrophils/100 WBC (Bld) 65.6 % 47-70 [facility] WBC (Bld) [#/Vol] 7.6 10*3/uL 4.4-11.0 [facility] Determination of erythrocyte mean corpuscular volume (MCV)Ordered By: Renard Burgos on 07-24-2023 MCV (RBC) [Entitic vol] 89.8 fL 80-94 [facility] Erythrocyte distribution wid th ratioOrdered By: Renard Burgos on 07-24-2023 Erythrocyte distribution width (RBC) [Ratio] 12.8 % 11.6-14.6 [facility] Erythrocyte distribution wid th standard deviationOrdered By: Renard Burgos on 07-24-2023 Erythrocyte distribution width (RBC) [Entitic vol] 42.0 fL 35.1-43.9 [facility] Hematocrit Auto (Bld) [Volum e fraction]Ordered By: Renard Burgos on 07-24-2023 Hematocrit (Bld) [Volume fraction] 43.3 % 40-54 [facility] Immature granulocytes/100 WB C Auto (Bld)Ordered By: Renard Burgos on 07-24-2023 Immature granulocytes/100 WBC (Bld) 0.400 % 0.0-0.9 [facility] Comment on above: IG% - Immature Granu locytes (promyelocytes, myelocytes and metamyelocytes) > 1% indicates that a LEFT SHIFT is Present. Laboratory - Hematology and Cell countsOrdered By: Renard Burgos on 07-24-2023 MCH (RBC) [Entitic mass] 29.5 pg 27.0-32.0 [facility] MCHC (RBC) [Mass/Vol] 32.8 g/dL 32-36 [facility] Nucleated RBC/100 WBC (Bld) [Ratio] 0 % 0-5 [facility] Platelet mean volume (Bld) [Entitic vol] 11.0 fL 6.2-12.0 [facility] Platelets (Bld) [#/Vol] 215 10*3/uL 150-450 [facility] RBC Auto (Bld) [#/Vol]Ordere d By: Renard Burgos on 07-24-2023 RBC (Bld) [#/Vol] 4.82 10*6/uL 4.6-6.2 [facility] Absolute lymphocyte countOrd ered By: Renard Burgos on 07-17-2023 Lymphocytes Auto (Unsp spec) [#/Vol] 2.22 10*3/uL 0.83-4.51 [facility] Automated lymphocyte count a s percentage of total leukocytesOrdered By: Renard Burgos on 07-17-2023 Lymphocytes/100 WBC Auto (Unsp spec) 25.4 % 19-41 [facility] Basophil percentageOrdered B y: Renard Burgos on 07-17-2023 Basophils/100 WBC (Bld) 0.5 % 0-1 [facility] Cholesterol [Mass/Vol] 126 mg/dL <200 [facility] Comment on above: <200 mg/dL Desirable 200-240 mg/dL Borderline >240 mg/dL High Risk Eosinophils/100 WBC (Bld) 0.6 % 0-5 [facility] Hemoglobin (Bld) [Mass/Vol] 14.0 g/dL 13.0-16.5 [facility] Monocytes/100 WBC (Bld) 6.6 % 0-10 [facility] Neutrophils (Bld) [#/Vol] 5.8 10*3/uL 2.0-7.7 [facility] Neutrophils/100 WBC (Bld) 66.4 % 47-70 [facility] Triglyceride [Mass/Vol] 176 mg/dL <199 [facility] Comment on above: The drugs N-Acetylcy steine and Metamizole may falsely depress this assay.Serum Triglycerides Reference Interval Normal <150 mg/dL Borderline high 150 - 199 mg/dL High 200 - 499 mg/dL Very High > or = 500 mg/dL WBC (Bld) [#/Vol] 8.7 10*3/uL 4.4-11.0 [facility] Determination of erythrocyte mean corpuscular volume (MCV)Ordered By: Renard Burgos on 07-17-2023 MCV (RBC) [Entitic vol] 90.5 fL 80-94 [facility] Erythrocyte distribution wid th ratioOrdered By: Renard Burgos on 07-17-2023 Erythrocyte distribution width (RBC) [Ratio] 12.4 % 11.6-14.6 [facility] Erythrocyte distribution wid th standard deviationOrdered By: Renard Burgos on 07-17-2023 Erythrocyte distribution width (RBC) [Entitic vol] 41.1 fL 35.1-43.9 [facility] Hematocrit Auto (Bld) [Volum e fraction]Ordered By: Renard Burgos on 07-17-2023 Hematocrit (Bld) [Volume fraction] 42.8 % 40-54 [facility] Immature granulocytes/100 WB C Auto (Bld)Ordered By: Renard Burgos on 07-17-2023 Immature granulocytes/100 WBC (Bld) 0.500 % 0.0-0.9 [facility] Comment on above: IG% - Immature Granu locytes (promyelocytes, myelocytes and metamyelocytes) > 1% indicates that a LEFT SHIFT is Present. Laboratory - Chemistry and C hemistry - challengeOrdered By: Renard Burgos on 07-17-2023 Cholesterol in HDL [Mass/Vol] 28 mg/dL >40 [facility] Comment on above: The drugs N-Acetylcy steine and Metamizole may falsely depress this assay. Reference Range HDL <40 mg/dL Low HDL Cholesterol HDL >or= 60 mg/dL High HDL Cholesterol Cholesterol in LDL [Mass/Vol] 63 mg/dL 0-130 [facility] Laboratory - Hematology and Cell countsOrdered By: Renard Burgos on 07-17-2023 MCH (RBC) [Entitic mass] 29.6 pg 27.0-32.0 [facility] MCHC (RBC) [Mass/Vol] 32.7 g/dL 32-36 [facility] Nucleated RBC/100 WBC (Bld) [Ratio] 0 % 0-5 [facility] Platelet mean volume (Bld) [Entitic vol] 10.9 fL 6.2-12.0 [facility] Platelets (Bld) [#/Vol] 193 10*3/uL 150-450 [facility] No Panel InformationOrdered By: Renard Burgos on 07-17-2023 Vitamin D 25-Hydroxy 33.1 ng/mL [facility] Comment on above: Vitamin D 25(OH) Sta tus Range Deficiency <20 ng/mL (50nmol/L) Insufficiency 20 - 30 ng/mL (50 - 75 nmol/L) Sufficiency 30 - 100 ng/mL (75 - 250 nmol/L) Toxicity >100 ng/mL (>250 nmol/L) VLDL Cholesterol 35 mg/dL 5-40 [facility] RBC Auto (Bld) [#/Vol]Ordere d By: Renard Burgos on 07-17-2023 RBC (Bld) [#/Vol] 4.73 10*6/uL 4.6-6.2 [facility] Absolute lymphocyte countOrd ered By: Renard Burgos on 07-10-2023 Lymphocytes Auto (Unsp spec) [#/Vol] 2.14 10*3/uL 0.83-4.51 [facility] Automated lymphocyte count a s percentage of total leukocytesOrdered By: Rneard Burgos on 07-10-2023 Lymphocytes/100 WBC Auto (Unsp spec) 24.7 % 19-41 [facility] Basophil percentageOrdered B y: Renard Burgos on 07-10-2023 Basophils/100 WBC (Bld) 0.3 % 0-1 [facility] Eosinophils/100 WBC (Bld) 0.3 % 0-5 [facility] Hemoglobin (Bld) [Mass/Vol] 13.8 g/dL 13.0-16.5 [facility] Monocytes/100 WBC (Bld) 7.8 % 0-10 [facility] Neutrophils (Bld) [#/Vol] 5.8 10*3/uL 2.0-7.7 [facility] Neutrophils/100 WBC (Bld) 66.4 % 47-70 [facility] WBC (Bld) [#/Vol] 8.7 10*3/uL 4.4-11.0 [facility] Determination of erythrocyte mean corpuscular volume (MCV)Ordered By: Renard Burgos on 07-10-2023 MCV (RBC) [Entitic vol] 88.9 fL 80-94 [facility] Erythrocyte distribution wid th ratioOrdered By: Renard Burgos on 07-10-2023 Erythrocyte distribution width (RBC) [Ratio] 12.6 % 11.6-14.6 [facility] Erythrocyte distribution wid th standard deviationOrdered By: Rneard Burgos on 07-10-2023 Erythrocyte distribution width (RBC) [Entitic vol] 40.6 fL 35.1-43.9 [facility] Hematocrit Auto (Bld) [Volum e fraction]Ordered By: Renard Burgos on 07-10-2023 Hematocrit (Bld) [Volume fraction] 41.0 % 40-54 [facility] Immature granulocytes/100 WB C Auto (Bld)Ordered By: Renard Burgos on 07-10-2023 Immature granulocytes/100 WBC (Bld) 0.500 % 0.0-0.9 [facility] Comment on above: IG% - Immature Granu locytes (promyelocytes, myelocytes and metamyelocytes) > 1% indicates that a LEFT SHIFT is Present. Laboratory - Hematology and Cell countsOrdered By: Renard Burgos on 07-10-2023 MCH (RBC) [Entitic mass] 29.9 pg 27.0-32.0 [facility] MCHC (RBC) [Mass/Vol] 33.7 g/dL 32-36 [facility] Nucle[facility] RBC/100 WBC (Bld) [Ratio] 0 % 0-5 [facility] Platelet mean volume (Bld) [Entitic vol] 11.0 fL 6.2-12.0 [facility] Platelets (Bld) [#/Vol] 215 10*3/uL 150-450 [facility] RBC Auto (Bld) [#/Vol]Ordere d By: Renard Burgos on 07-10-2023 RBC (Bld) [#/Vol] 4.61 10*6/uL 4.6-6.2 [facility] Absolute lymphocyte countOrd ered By: Renard Burgos on 07-03-2023 Lymphocytes Auto (Unsp spec) [#/Vol] 1.84 10*3/uL 0.83-4.51 [facility] Automated lymphocyte count a s percentage of total leukocytesOrdered By: Renard Burgos on 07-03-2023 Lymphocytes/100 WBC Auto (Unsp spec) 16.9 % 19-41 [facility] Basophil percentageOrdered B y: Renard Burgos on 07-03-2023 Basophil percentage 3.17 ng/mL 0.0-4.0 [facility] Comment on above: This test was perfor med using the TPSA assay method for the[employer] chemistry system. Values obtained with differentassay methods cannot be used interchangably.When changing PSA assays in the course of monitoring apatient, additional sequential testing should be carriedout to confirm baseline values. Basophils/100 WBC (Bld) 0.5 % 0-1 [facility] Eosinophils/100 WBC (Bld) 0.4 % 0-5 [facility] Hemoglobin (Bld) [Mass/Vol] 13.2 g/dL 13.0-16.5 [facility] Monocytes/100 WBC (Bld) 7.4 % 0-10 [facility] Neutrophils (Bld) [#/Vol] 8.1 10*3/uL 2.0-7.7 [facility] Neutrophils/100 WBC (Bld) 74.4 % 47-70 [facility] WBC (Bld) [#/Vol] 10.9 10*3/uL 4.4-11.0 [facility] Determination of erythrocyte mean corpuscular volume (MCV)Ordered By: Renard Burgos on 07-03-2023 MCV (RBC) [Entitic vol] 89.8 fL 80-94 [facility] Erythrocyte distribution wid th ratioOrdered By: Renard Burgos on 07-03-2023 Erythrocyte distribution width (RBC) [Ratio] 12.7 % 11.6-14.6 [facility] Erythrocyte distribution wid th standard deviationOrdered By: Renard Burgos on 07-03-2023 Erythrocyte distribution width (RBC) [Entitic vol] 41.9 fL 35.1-43.9 [facility] Hematocrit Auto (Bld) [Volum e fraction]Ordered By: Renard Burgos on 07-03-2023 Hematocrit (Bld) [Volume fraction] 40.3 % 40-54 [facility] Immature granulocytes/100 WB C Auto (Bld)Ordered By: Renard Burgos on 07-03-2023 Immature granulocytes/100 WBC (Bld) 0.400 % 0.0-0.9 [facility] Comment on above: IG% - Immature Granu locytes (promyelocytes, myelocytes and metamyelocytes) > 1% indicates that a LEFT SHIFT is Present. Laboratory - Hematology and Cell countsOrdered By: Renard Burgos on 07-03-2023 MCH (RBC) [Entitic mass] 29.4 pg 27.0-32.0 [facility] MCHC (RBC) [Mass/Vol] 32.8 g/dL 32-36 [facility] Nucleated RBC/100 WBC (Bld) [Ratio] 0 % 0-5 [facility] Platelet mean volume (Bld) [Entitic vol] 11.2 fL 6.2-12.0 [facility] Platelets (Bld) [#/Vol] 191 10*3/uL 150-450 [facility] RBC Auto (Bld) [#/Vol]Ordere d By: Renard Burgos on 07-03-2023 RBC (Bld) [#/Vol] 4.49 10*6/uL 4.6-6.2 [facility] Absolute lymphocyte countOrd ered By: Renard Burgos on 06-26-2023 Lymphocytes Auto (Unsp spec) [#/Vol] 2.23 10*3/uL 0.83-4.51 [facility] Automated lymphocyte count a s percentage of total leukocytesOrdered By: Renard Burgos on 06-26-2023 Lymphocytes/100 WBC Auto (Unsp spec) 27.3 % 19-41 [facility] Basophil percentageOrdered B y: Renard Burgos on 06-26-2023 Basophils/100 WBC (Bld) 0.5 % 0-1 [facility] Eosinophils/100 WBC (Bld) 0.7 % 0-5 [facility] Hemoglobin (Bld) [Mass/Vol] 13.7 g/dL 13.0-16.5 [facility] Monocytes/100 WBC (Bld) 9.5 % 0-10 [facility] Neutrophils (Bld) [#/Vol] 5.1 10*3/uL 2.0-7.7 [facility] Neutrophils/100 WBC (Bld) 61.8 % 47-70 [facility] WBC (Bld) [#/Vol] 8.2 10*3/uL 4.4-11.0 [facility] Determination of erythrocyte mean corpuscular volume (MCV)Ordered By: Renard Burgos on 06-26-2023 MCV (RBC) [Entitic vol] 92.2 fL 80-94 [facility] Erythrocyte distribution wid th ratioOrdered By: Renard Burgos on 06-26-2023 Erythrocyte distribution width (RBC) [Ratio] 12.7 % 11.6-14.6 [facility] Erythrocyte distribution wid th standard deviationOrdered By: Renard Burgos on 06-26-2023 Erythrocyte distribution width (RBC) [Entitic vol] 42.8 fL 35.1-43.9 [facility] Hematocrit Auto (Bld) [Volum e fraction]Ordered By: Renard Burgos on 06-26-2023 Hematocrit (Bld) [Volume fraction] 42.6 % 40-54 [facility] Immature granulocytes/100 WB C Auto (Bld)Ordered By: Renard Burgos on 06-26-2023 Immature granulocytes/100 WBC (Bld) 0.200 % 0.0-0.9 [facility] Comment on above: IG% - Immature Granu locytes (promyelocytes, myelocytes and metamyelocytes) > 1% indicates that a LEFT SHIFT is Present. Laboratory - Hematology and Cell countsOrdered By: Renard Burgos on 06-26-2023 MCH (RBC) [Entitic mass] 29.7 pg 27.0-32.0 [facility] MCHC (RBC) [Mass/Vol] 32.2 g/dL 32-36 [facility] Nucleated RBC/100 WBC (Bld) [Ratio] 0 % 0-5 [facility] Platelet mean volume (Bld) [Entitic vol] 11.0 fL 6.2-12.0 [facility] Platelets (Bld) [#/Vol] 182 10*3/uL 150-450 [facility] RBC Auto (Bld) [#/Vol]Ordere d By: Renard Burgos on 06-26-2023 RBC (Bld) [#/Vol] 4.62 10*6/uL 4.6-6.2 [facility] Absolute lymphocyte countOrd ered By: Renard Burgos on 06-19-2023 Lymphocytes Auto (Unsp spec) [#/Vol] 2.13 10*3/uL 0.83-4.51 [facility] Automated lymphocyte count a s percentage of total leukocytesOrdered By: Renard Burgos on 06-19-2023 Lymphocytes/100 WBC Auto (Unsp spec) 28.8 % 19-41 [facility] Basophil percentageOrdered B y: Renard Burgos on 06-19-2023 Basophils/100 WBC (Bld) 0.5 % 0-1 [facility] Eosinophils/100 WBC (Bld) 0.5 % 0-5 [facility] Hemoglobin (Bld) [Mass/Vol] 13.7 g/dL 13.0-16.5 [facility] Monocytes/100 WBC (Bld) 8.1 % 0-10 [facility] Neutrophils (Bld) [#/Vol] 4.6 10*3/uL 2.0-7.7 [facility] Neutrophils/100 WBC (Bld) 61.6 % 47-70 [facility] WBC (Bld) [#/Vol] 7.4 10*3/uL 4.4-11.0 [facility] Determination of erythrocyte mean corpuscular volume (MCV)Ordered By: Renard Burgos on 06-19-2023 MCV (RBC) [Entitic vol] 91.7 fL 80-94 [facility] Erythrocyte distribution wid th ratioOrdered By: Renard Burgos on 06-19-2023 Erythrocyte distribution width (RBC) [Ratio] 12.7 % 11.6-14.6 [facility] Erythrocyte distribution wid th standard deviationOrdered By: Renard Burgos on 06-19-2023 Erythrocyte distribution width (RBC) [Entitic vol] 42.8 fL 35.1-43.9 [facility] Hematocrit Auto (Bld) [Volum e fraction]Ordered By: Renard Burgos on 06-19-2023 Hematocrit (Bld) [Volume fraction] 43.1 % 40-54 [facility] Immature granulocytes/100 WB C Auto (Bld)Ordered By: Renard Burgos on 06-19-2023 Immature granulocytes/100 WBC (Bld) 0.500 % 0.0-0.9 [facility] Comment on above: IG% - Immature Granu locytes (promyelocytes, myelocytes and metamyelocytes) > 1% indicates that a LEFT SHIFT is Present. Laboratory - Hematology and Cell countsOrdered By: eRnard Burgos on 06-19-2023 MCH (RBC) [Entitic mass] 29.1 pg 27.0-32.0 [facility] MCHC (RBC) [Mass/Vol] 31.8 g/dL 32-36 [facility] Nucleated RBC/100 WBC (Bld) [Ratio] 0 % 0-5 [facility] Platelet mean volume (Bld) [Entitic vol] 11.1 fL 6.2-12.0 [facility] Platelets (Bld) [#/Vol] 201 10*3/uL 150-450 [facility] RBC Auto (Bld) [#/Vol]Ordere d By: Renard Burgos on 06-19-2023 RBC (Bld) [#/Vol] 4.70 10*6/uL 4.6-6.2 [facility] Absolute lymphocyte countOrd ered By: Renard Burgos on 06-12-2023 Lymphocytes Auto (Unsp spec) [#/Vol] 2.17 10*3/uL 0.83-4.51 [facility] Automated lymphocyte count a s percentage of total leukocytesOrdered By: Renard Burgos on 06-12-2023 Lymphocytes/100 WBC Auto (Unsp spec) 26.7 % 19-41 [facility] Basophil percentageOrdered B y: Renard Burgos on 06-12-2023 Basophils/100 WBC (Bld) 0.4 % 0-1 [facility] Eosinophils/100 WBC (Bld) 0.5 % 0-5 [facility] Hemoglobin (Bld) [Mass/Vol] 13.5 g/dL 13.0-16.5 [facility] Monocytes/100 WBC (Bld) 9.0 % 0-10 [facility] Neutrophils (Bld) [#/Vol] 5.1 10*3/uL 2.0-7.7 [facility] Neutrophils/100 WBC (Bld) 63.0 % 47-70 [facility] WBC (Bld) [#/Vol] 8.1 10*3/uL 4.4-11.0 [facility] Determination of erythrocyte mean corpuscular volume (MCV)Ordered By: Renard Burgos on 06-12-2023 MCV (RBC) [Entitic vol] 91.3 fL 80-94 [facility] Erythrocyte distribution wid th ratioOrdered By: Renard Burgos on 06-12-2023 Erythrocyte distribution width (RBC) [Ratio] 12.6 % 11.6-14.6 [facility] Erythrocyte distribution wid th standard deviationOrdered By: Renard Burgos on 06-12-2023 Erythrocyte distribution width (RBC) [Entitic vol] 41.5 fL 35.1-43.9 [facility] Hematocrit Auto (Bld) [Volum e fraction]Ordered By: Renard Burgos on 06-12-2023 Hematocrit (Bld) [Volume fraction] 40.8 % 40-54 [facility] Immature granulocytes/100 WB C Auto (Bld)Ordered By: Renard Burgos on 06-12-2023 Immature granulocytes/100 WBC (Bld) 0.400 % 0.0-0.9 [facility] Comment on above: IG% - Immature Granu locytes (promyelocytes, myelocytes and metamyelocytes) > 1% indicates that a LEFT SHIFT is Present. Laboratory - Hematology and Cell countsOrdered By: Renard Burgos on 06-12-2023 MCH (RBC) [Entitic mass] 30.2 pg 27.0-32.0 [facility] MCHC (RBC) [Mass/Vol] 33.1 g/dL 32-36 [facility] Nucleated RBC/100 WBC (Bld) [Ratio] 0 % 0-5 [facility] Platelet mean volume (Bld) [Entitic vol] 11.0 fL 6.2-12.0 [facility] Platelets (Bld) [#/Vol] 195 10*3/uL 150-450 [facility] RBC Auto (Bld) [#/Vol]Ordere d By: Renard Burgos on 06-12-2023 RBC (Bld) [#/Vol] 4.47 10*6/uL 4.6-6.2 [facility] Absolute lymphocyte countOrd ered By: Renard Burgos on 06-05-2023 Lymphocytes Auto (Unsp spec) [#/Vol] 2.05 10*3/uL 0.83-4.51 [facility] Automated lymphocyte count a s percentage of total leukocytesOrdered By: Renard Burgos on 06-05-2023 Lymphocytes/100 WBC Auto (Unsp spec) 24.1 % 19-41 [facility] Basophil percentageOrdered B y: Renard Burgos on 06-05-2023 Basophils/100 WBC (Bld) 0.5 % 0-1 [facility] Eosinophils/100 WBC (Bld) 0.5 % 0-5 [facility] Hemoglobin (Bld) [Mass/Vol] 13.6 g/dL 13.0-16.5 [facility] Monocytes/100 WBC (Bld) 7.6 % 0-10 [facility] Neutrophils (Bld) [#/Vol] 5.7 10*3/uL 2.0-7.7 [facility] Neutrophils/100 WBC (Bld) 66.9 % 47-70 [facility] WBC (Bld) [#/Vol] 8.5 10*3/uL 4.4-11.0 [facility] Determination of erythrocyte mean corpuscular volume (MCV)Ordered By: Renard Burgos on 06-05-2023 MCV (RBC) [Entitic vol] 89.7 fL 80-94 [facility] Erythrocyte distribution wid th ratioOrdered By: Renard Burgos on 06-05-2023 Erythrocyte distribution width (RBC) [Ratio] 12.6 % 11.6-14.6 [facility] Erythrocyte distribution wid th standard deviationOrdered By: Renard Burgos on 06-05-2023 Erythrocyte distribution width (RBC) [Entitic vol] 41.1 fL 35.1-43.9 [facility] Hematocrit Auto (Bld) [Volum e fraction]Ordered By: Renard Burgos on 06-05-2023 Hematocrit (Bld) [Volume fraction] 41.0 % 40-54 [facility] Immature granulocytes/100 WB C Auto (Bld)Ordered By: Renard Burgos on 06-05-2023 Immature granulocytes/100 WBC (Bld) 0.400 % 0.0-0.9 [facility] Comment on above: IG% - Immature Granu locytes (promyelocytes, myelocytes and metamyelocytes) > 1% indicates that a LEFT SHIFT is Present. Laboratory - Hematology and Cell countsOrdered By: Renard Burgos on 06-05-2023 MCH (RBC) [Entitic mass] 29.8 pg 27.0-32.0 [facility] MCHC (RBC) [Mass/Vol] 33.2 g/dL 32-36 [facility] Nucleated RBC/100 WBC (Bld) [Ratio] 0 % 0-5 [facility] Platelets (Bld) [#/Vol] 193 10*3/uL 150-450 [facility] Platelet mean volume Adam-Ec ker (Bld) [Entitic vol]Ordered By: Renard Burgos on 06-05-2023 Platelet mean volume (Bld) [Entitic vol] 10.8 fL 6.2-12.0 [facility] RBC Auto (Bld) [#/Vol]Ordere d By: Renard Burgos on 06-05-2023 RBC (Bld) [#/Vol] 4.57 10*6/uL 4.6-6.2 [facility] Absolute lymphocyte countOrd ered By: Renard Burgos on 05-29-2023 Lymphocytes Auto (Unsp spec) [#/Vol] 2.32 10*3/uL 0.83-4.51 [facility] Automated lymphocyte count a s percentage of total leukocytesOrdered By: Renard Burgos on 05-29-2023 Lymphocytes/100 WBC Auto (Unsp spec) 26.7 % 19-41 [facility] Basophil percentageOrdered B y: Renard Burgos on 05-29-2023 Basophils/100 WBC (Bld) 0.6 % 0-1 [facility] Eosinophils/100 WBC (Bld) 0.5 % 0-5 [facility] Hemoglobin (Bld) [Mass/Vol] 14.2 g/dL 13.0-16.5 [facility] Monocytes/100 WBC (Bld) 6.8 % 0-10 [facility] Neutrophils (Bld) [#/Vol] 5.7 10*3/uL 2.0-7.7 [facility] Neutrophils/100 WBC (Bld) 65.2 % 47-70 [facility] WBC (Bld) [#/Vol] 8.7 10*3/uL 4.4-11.0 [facility] Determination of erythrocyte mean corpuscular volume (MCV)Ordered By: Renard Burgos on 05-29-2023 MCV (RBC) [Entitic vol] 94.0 fL 80-94 [facility] Erythrocyte distribution wid th ratioOrdered By: Renard Burgos on 05-29-2023 Erythrocyte distribution width (RBC) [Ratio] 12.6 % 11.6-14.6 [facility] Erythrocyte distribution wid th standard deviationOrdered By: Renard Burgos on 05-29-2023 Erythrocyte distribution width (RBC) [Entitic vol] 43.0 fL 35.1-43.9 [facility] Hematocrit Auto (Bld) [Volum e fraction]Ordered By: Renard Burgos on 05-29-2023 Hematocrit (Bld) [Volume fraction] 45.4 % 40-54 [facility] Immature granulocytes/100 WB C Auto (Bld)Ordered By: Renard Burgos on 05-29-2023 Immature granulocytes/100 WBC (Bld) 0.200 % 0.0-0.9 [facility] Comment on above: IG% - Immature Granu locytes (promyelocytes, myelocytes and metamyelocytes) > 1% indicates that a LEFT SHIFT is Present. Laboratory - Hematology and Cell countsOrdered By: Renard Burgos on 05-29-2023 MCH (RBC) [Entitic mass] 29.4 pg 27.0-32.0 [facility] MCHC (RBC) [Mass/Vol] 31.3 g/dL 32-36 [facility] Nucleated RBC/100 WBC (Bld) [Ratio] 0 % 0-5 [facility] Platelets (Bld) [#/Vol] 116 10*3/uL 150-450 [facility] Platelet mean volume Adam-Ec ker (Bld) [Entitic vol]Ordered By: Renard Burgos on 05-29-2023 Platelet mean volume (Bld) [Entitic vol] 11.1 fL 6.2-12.0 [facility] RBC Auto (Bld) [#/Vol]Ordere d By: Renard Burgos on 05-29-2023 RBC (Bld) [#/Vol] 4.83 10*6/uL 4.6-6.2 [facility] Absolute lymphocyte countOrd ered By: Renard Burgos on 05-22-2023 Lymphocytes Auto (Unsp spec) [#/Vol] 2.40 10*3/uL 0.83-4.51 [facility] Automated lymphocyte count a s percentage of total leukocytesOrdered By: Renard Burgos on 05-22-2023 Lymphocytes/100 WBC Auto (Unsp spec) 25.6 % 19-41 [facility] Basophil percentageOrdered B y: Renard Burgos on 05-22-2023 Basophils/100 WBC (Bld) 0.4 % 0-1 [facility] Eosinophils/100 WBC (Bld) 0.4 % 0-5 [facility] Hemoglobin (Bld) [Mass/Vol] 13.7 g/dL 13.0-16.5 [facility] Monocytes/100 WBC (Bld) 9.1 % 0-10 [facility] Neutrophils (Bld) [#/Vol] 6.0 10*3/uL 2.0-7.7 [facility] Neutrophils/100 WBC (Bld) 63.9 % 47-70 [facility] WBC (Bld) [#/Vol] 9.4 10*3/uL 4.4-11.0 [facility] Determination of erythrocyte mean corpuscular volume (MCV)Ordered By: Renard Burgos on 05-22-2023 MCV (RBC) [Entitic vol] 91.8 fL 80-94 [facility] Erythrocyte distribution wid th ratioOrdered By: Renard Burgos on 05-22-2023 Erythrocyte distribution width (RBC) [Ratio] 12.8 % 11.6-14.6 [facility] Erythrocyte distribution wid th standard deviationOrdered By: Renard Burgos on 05-22-2023 Erythrocyte distribution width (RBC) [Entitic vol] 43.4 fL 35.1-43.9 [facility] Hematocrit Auto (Bld) [Volum e fraction]Ordered By: Renard Burgos on 05-22-2023 Hematocrit (Bld) [Volume fraction] 41.5 % 40-54 [facility] Immature granulocytes/100 WB C Auto (Bld)Ordered By: Renard Burgos on 05-22-2023 Immature granulocytes/100 WBC (Bld) 0.600 % 0.0-0.9 [facility] Comment on above: IG% - Immature Granu locytes (promyelocytes, myelocytes and metamyelocytes) > 1% indicates that a LEFT SHIFT is Present. Laboratory - Hematology and Cell countsOrdered By: Renard Burgos on 05-22-2023 MCH (RBC) [Entitic mass] 30.3 pg 27.0-32.0 [facility] MCHC (RBC) [Mass/Vol] 33.0 g/dL 32-36 [facility] Nucleated RBC/100 WBC (Bld) [Ratio] 0 % 0-5 [facility] Platelets (Bld) [#/Vol] 192 10*3/uL 150-450 [facility] Platelet mean volume Adam-Ec ker (Bld) [Entitic vol]Ordered By: Renard Burgos on 05-22-2023 Platelet mean volume (Bld) [Entitic vol] 11.3 fL 6.2-12.0 [facility] RBC Auto (Bld) [#/Vol]Ordere d By: Renard Burgos on 05-22-2023 RBC (Bld) [#/Vol] 4.52 10*6/uL 4.6-6.2 [facility] Absolute lymphocyte countOrd ered By: Renard Burgos on 05-15-2023 Lymphocytes Auto (Unsp spec) [#/Vol] 2.11 10*3/uL 0.83-4.51 [facility] Basophil percentageOrdered B y: Renard Burgos on 05-15-2023 Basophils/100 WBC (Bld) 0.6 % 0-1 [facility] Eosinophils/100 WBC (Bld) 0.8 % 0-5 [facility] Neutrophils (Bld) [#/Vol] 4.9 10*3/uL 2.0-7.7 [facility] Neutrophils/100 WBC (Bld) 62.4 % 47-70 [facility] WBC (Bld) [#/Vol] 7.9 10*3/uL 4.4-11.0 [facility] Blood erythrocytes count (nu mber/volume)Ordered By: Renard Burgos on 05-15-2023 RBC (Bld) [#/Vol] 4.61 10*6/uL 4.6-6.2 [facility] Blood hemoglobin measurement (mass/volume)Ordered By: Renard Burgos on 05-15-2023 Hemoglobin (Bld) [Mass/Vol] 13.9 g/dL 13.0-16.5 [facility] Blood lymphocytes/100 leukoc ytesOrdered By: Renard Burgos on 05-15-2023 Lymphocytes/100 WBC (Bld) 26.7 % 19-41 [facility] Blood monocytes/100 leukocyt esOrdered By: Renard Burgos on 05-15-2023 Monocytes/100 WBC (Bld) 9.1 % 0-10 [facility] Blood platelet mean volumeOr dered By: Renard Burgos on 05-15-2023 Platelet mean volume (Bld) [Entitic vol] 10.7 fL 6.2-12.0 [facility] Determination of erythrocyte mean corpuscular volume (MCV)Ordered By: Renard Burgos on 05-15-2023 MCV (RBC) [Entitic vol] 90.5 fL 80-94 [facility] Hematocrit Auto (Bld) [Volum e fraction]Ordered By: Renard Burgos on 05-15-2023 Hematocrit (Bld) [Volume fraction] 41.7 % 40-54 [facility] Laboratory - Hematology and Cell countsOrdered By: Renard Burgos on 05-15-2023 Erythrocyte distribution width (RBC) [Entitic vol] 42.4 fL 35.1-43.9 [facility] Erythrocyte distribution width (RBC) [Ratio] 12.9 % 11.6-14.6 [facility] Immature granulocytes/100 WBC (Bld) 0.400 % 0.0-0.9 [facility] Comment on above: IG% - Immature Granu locytes (promyelocytes, myelocytes and metamyelocytes) > 1% indicates that a LEFT SHIFT is Present. MCH (RBC) [Entitic mass] 30.2 pg 27.0-32.0 [facility] Nucleated RBC/100 WBC (Bld) [Ratio] 0 % 0-5 [facility] MCHC Auto (RBC) [Mass/Vol]Or dered By: Renard Burgos on 05-15-2023 MCHC (RBC) [Mass/Vol] 33.3 g/dL 32-36 [facility] Platelets bldOrdered By: Lyubov Burgos on 05-15-2023 Platelets (Bld) [#/Vol] 202 10*3/uL 150-450 [facility] Absolute lymphocyte countOrd ered By: Renard Burgos on 05-08-2023 Lymphocytes Auto (Unsp spec) [#/Vol] 2.06 10*3/uL 0.83-4.51 [facility] Basophil percentageOrdered B y: Renard Burgos on 05-08-2023 Basophils/100 WBC (Bld) 0.4 % 0-1 [facility] Eosinophils/100 WBC (Bld) 0.5 % 0-5 [facility] Neutrophils (Bld) [#/Vol] 5.0 10*3/uL 2.0-7.7 [facility] Neutrophils/100 WBC (Bld) 65.7 % 47-70 [facility] WBC (Bld) [#/Vol] 7.5 10*3/uL 4.4-11.0 [facility] Blood erythrocytes count (nu mber/volume)Ordered By: Renard Burgos on 05-08-2023 RBC (Bld) [#/Vol] 4.62 10*6/uL 4.6-6.2 [facility] Blood hemoglobin measurement (mass/volume)Ordered By: Renard Burgos on 05-08-2023 Hemoglobin (Bld) [Mass/Vol] 13.6 g/dL 13.0-16.5 [facility] Blood lymphocytes/100 leukoc ytesOrdered By: Renard Burgos on 05-08-2023 Lymphocytes/100 WBC (Bld) 27.4 % 19-41 [facility] Blood monocytes/100 leukocyt esOrdered By: Renard Burgos on 05-08-2023 Monocytes/100 WBC (Bld) 5.6 % 0-10 [facility] Blood platelet mean volumeOr dered By: Renard Burgos on 05-08-2023 Platelet mean volume (Bld) [Entitic vol] 11.0 fL 6.2-12.0 [facility] Determination of erythrocyte mean corpuscular volume (MCV)Ordered By: Renard Burgos on 05-08-2023 MCV (RBC) [Entitic vol] 91.8 fL 80-94 [facility] Hematocrit Auto (Bld) [Volum e fraction]Ordered By: Renard Burgos on 05-08-2023 Hematocrit (Bld) [Volume fraction] 42.4 % 40-54 [facility] Laboratory - Hematology and Cell countsOrdered By: Renard Burgos on 05-08-2023 Erythrocyte distribution width (RBC) [Entitic vol] 43.1 fL 35.1-43.9 [facility] Erythrocyte distribution width (RBC) [Ratio] 13.0 % 11.6-14.6 [facility] Immature granulocytes/100 WBC (Bld) 0.400 % 0.0-0.9 [facility] Comment on above: IG% - Immature Granu locytes (promyelocytes, myelocytes and metamyelocytes) > 1% indicates that a LEFT SHIFT is Present. MCH (RBC) [Entitic mass] 29.4 pg 27.0-32.0 [facility] Nucleated RBC/100 WBC (Bld) [Ratio] 0 % 0-5 [facility] MCHC Auto (RBC) [Mass/Vol]Or dered By: Renard Burgos on 05-08-2023 MCHC (RBC) [Mass/Vol] 32.1 g/dL 32-36 [facility] Platelets bldOrdered By: Lyubov lizy Loretta on 05-08-2023 Platelets (Bld) [#/Vol] 226 10*3/uL 150-450 [facility] Absolute lymphocyte countOrd ered By: Renard Burgos on 04-17-2023 Lymphocytes Auto (Unsp spec) [#/Vol] 0.92 10*3/uL 0.83-4.51 [facility] Basophil percentageOrdered B y: Renard Burgos on 04-17-2023 Basophils/100 WBC (Bld) 0.1 % 0-1 [facility] Eosinophils/100 WBC (Bld) 0.0 % 0-5 [facility] Neutrophils (Bld) [#/Vol] 6.0 10*3/uL 2.0-7.7 [facility] Neutrophils/100 WBC (Bld) 81.4 % 47-70 [facility] WBC (Bld) [#/Vol] 7.4 10*3/uL 4.4-11.0 [facility] Blood erythrocytes count (nu mber/volume)Ordered By: Renard Burgos on 04-17-2023 RBC (Bld) [#/Vol] 4.59 10*6/uL 4.6-6.2 [facility] Blood hemoglobin measurement (mass/volume)Ordered By: Renard Burgos on 04-17-2023 Hemoglobin (Bld) [Mass/Vol] 13.7 g/dL 13.0-16.5 [facility] Blood lymphocytes/100 leukoc ytesOrdered By: Renard Burgos on 04-17-2023 Lymphocytes/100 WBC (Bld) 12.5 % 19-41 [facility] Blood monocytes/100 leukocyt esOrdered By: Renard Burgos on 04-17-2023 Monocytes/100 WBC (Bld) 5.6 % 0-10 [facility] Blood platelet mean volumeOr dered By: Renard Burgos on 04-17-2023 Platelet mean volume (Bld) [Entitic vol] 10.9 fL 6.2-12.0 [facility] Determination of erythrocyte mean corpuscular volume (MCV)Ordered By: Renard Burgos on 04-17-2023 MCV (RBC) [Entitic vol] 90.8 fL 80-94 [facility] Hematocrit Auto (Bld) [Volum e fraction]Ordered By: Renard Burgos on 04-17-2023 Hematocrit (Bld) [Volume fraction] 41.7 % 40-54 [facility] - Hematology and Cell countsOrdered By: Renard Burgos on 04-17-2023 Erythrocyte distribution width (RBC) [Entitic vol] 42.3 fL 35.1-43.9 [facility] Erythrocyte distribution width (RBC) [Ratio] 12.8 % 11.6-14.6 [facility] Immature granulocytes/100 WBC (Bld) 0.400 % 0.0-0.9 [facility] Comment on above: IG% - Immature Granu locytes (promyelocytes, myelocytes and metamyelocytes) > 1% indicates that a LEFT SHIFT is Present. MCH (RBC) [Entitic mass] 29.8 pg 27.0-32.0 [facility] Nucleated RBC/100 WBC (Bld) [Ratio] 0 % 0-5 [facility] MCHC Auto (RBC) [Mass/Vol]Or dered By: Renard Burgos on 04-17-2023 MCHC (RBC) [Mass/Vol] 32.9 g/dL 32-36 [facility] Platelets bldOrdered By: Lyubov Burgos on 04-17-2023 Platelets (Bld) [#/Vol] 194 10*3/uL 150-450 [facility] Basophil percentageOrdered B y: Renard Burgos on 04-14-2023 Bilirubin [Mass/Vol] 0.30 mg/dL 0.20-1.00 [facility] Comment on above: For patients on eltr ombopag therapy, use of Dimension [place] TBIL is not recommended. Protein [Mass/Vol] 6.2 g/dL 6.4-8.2 [facility] Direct bilirubinOrdered By: Renard Burgos on 04-14-2023 Bilirubin.direct [Mass/Vol] 0.11 mg/dL 0.00-0.30 [facility] - Chemistry and C hemistry - challengeOrdered By: Renard Burgos on 04-14-2023 ALP [Catalytic activity/Vol] 139 U/L 45-117 [facility] ALT [Catalytic activity/Vol] 23 U/L 16-61 [facility] Globulin (S) [Mass/Vol] 3.2 g/dL 2.2-4.2 [facility] Serum or plasma albumin gordy urement (mass/volume)Ordered By: Renard Burgos on 04-14-2023 Albumin [Mass/Vol] 3.0 g/dL 3.2-5.0 [facility] Thin prep Papanicolaou smear with manual screeningOrdered By: Renard Burgos on 04-14-2023 Thin prep Papanicolaou smear with manual screening 14 U/L 15-37 [facility] Absolute lymphocyte countOrd ered By: Renard Burgos on 04-10-2023 Lymphocytes Auto (Unsp spec) [#/Vol] 2.54 10*3/uL 0.83-4.51 [facility] Basophil percentageOrdered B y: Renard Burgos on 04-10-2023 Basophils/100 WBC (Bld) 0.5 % 0-1 [facility] Eosinophils/100 WBC (Bld) 0.5 % 0-5 [facility] Neutrophils (Bld) [#/Vol] 5.1 10*3/uL 2.0-7.7 [facility] Neutrophils/100 WBC (Bld) 59.0 % 47-70 [facility] WBC (Bld) [#/Vol] 8.7 10*3/uL 4.4-11.0 [facility] Blood erythrocytes count (nu mber/volume)Ordered By: Renard Burgos on 04-10-2023 RBC (Bld) [#/Vol] 4.84 10*6/uL 4.6-6.2 [facility] Blood hemoglobin measurement (mass/volume)Ordered By: Renard Burgos on 04-10-2023 Hemoglobin (Bld) [Mass/Vol] 14.2 g/dL 13.0-16.5 [facility] Blood lymphocytes/100 leukoc ytesOrdered By: Renard Burgos on 04-10-2023 Lymphocytes/100 WBC (Bld) 29.4 % 19-41 [facility] Blood monocytes/100 leukocyt esOrdered By: Renard Burgos on 04-10-2023 Monocytes/100 WBC (Bld) 10.3 % 0-10 [facility] Blood platelet mean volumeOr dered By: Renard Burgos on 04-10-2023 Platelet mean volume (Bld) [Entitic vol] 11.1 fL 6.2-12.0 [facility] Determination of erythrocyte mean corpuscular volume (MCV)Ordered By: Renard Burgos on 04-10-2023 MCV (RBC) [Entitic vol] 91.5 fL 80-94 [facility] Hematocrit Auto (Bld) [Volum e fraction]Ordered By: Renard Burgos on 04-10-2023 Hematocrit (Bld) [Volume fraction] 44.3 % 40-54 [facility] - Hematology and Cell countsOrdered By: Renard Burgos on 04-10-2023 Erythrocyte distribution width (RBC) [Entitic vol] 41.9 fL 35.1-43.9 [facility] Erythrocyte distribution width (RBC) [Ratio] 12.6 % 11.6-14.6 [facility] Immature granulocytes/100 WBC (Bld) 0.300 % 0.0-0.9 [facility] Comment on above: IG% - Immature Granu locytes (promyelocytes, myelocytes and metamyelocytes) > 1% indicates that a LEFT SHIFT is Present. MCH (RBC) [Entitic mass] 29.3 pg 27.0-32.0 [facility] Nucleated RBC/100 WBC (Bld) [Ratio] 0 % 0-5 [facility] MCHC Auto (RBC) [Mass/Vol]Or dered By: Renard Burgos on 04-10-2023 MCHC (RBC) [Mass/Vol] 32.1 g/dL 32-36 [facility] Platelets bldOrdered By: Lyubov Burgos on 04-10-2023 Platelets (Bld) [#/Vol] 216 10*3/uL 150-450 [facility] Absolute lymphocyte countOrd ered By: Renard Burgos on 04-03-2023 Lymphocytes Auto (Unsp spec) [#/Vol] 1.91 10*3/uL 0.83-4.51 [facility] Basophil percentageOrdered B y: Renard Burgos on 04-03-2023 Basophils/100 WBC (Bld) 0.5 % 0-1 [facility] Eosinophils/100 WBC (Bld) 0.5 % 0-5 [facility] Neutrophils (Bld) [#/Vol] 5.0 10*3/uL 2.0-7.7 [facility] Neutrophils/100 WBC (Bld) 66.5 % 47-70 [facility] WBC (Bld) [#/Vol] 7.6 10*3/uL 4.4-11.0 [facility] Blood erythrocytes count (nu mber/volume)Ordered By: Renard Burgos on 04-03-2023 RBC (Bld) [#/Vol] 4.62 10*6/uL 4.6-6.2 [facility] Blood hemoglobin measurement (mass/volume)Ordered By: Renard Burgos on 04-03-2023 Hemoglobin (Bld) [Mass/Vol] 13.7 g/dL 13.0-16.5 [facility] Blood lymphocytes/100 leukoc ytesOrdered By: Renard Burgos on 04-03-2023 Lymphocytes/100 WBC (Bld) 25.2 % 19-41 [facility] Blood monocytes/100 leukocyt esOrdered By: Renard Burgos on 04-03-2023 Monocytes/100 WBC (Bld) 6.9 % 0-10 [facility] Blood platelet mean volumeOr dered By: Rneard Burgos on 04-03-2023 Platelet mean volume (Bld) [Entitic vol] 10.8 fL 6.2-12.0 [facility] Determination of erythrocyte mean corpuscular volume (MCV)Ordered By: Renard Burgos on 04-03-2023 MCV (RBC) [Entitic vol] 91.6 fL 80-94 [facility] Hematocrit Auto (Bld) [Volum e fraction]Ordered By: Renard Burgos on 04-03-2023 Hematocrit (Bld) [Volume fraction] 42.3 % 40-54 [facility] - Hematology and Cell countsOrdered By: Renard Burgos on 04-03-2023 Erythrocyte distribution width (RBC) [Entitic vol] 42.6 fL 35.1-43.9 [facility] Erythrocyte distribution width (RBC) [Ratio] 12.8 % 11.6-14.6 [facility] Immature granulocytes/100 WBC (Bld) 0.400 % 0.0-0.9 [facility] Comment on above: IG% - Immature Granu locytes (promyelocytes, myelocytes and metamyelocytes) > 1% indicates that a LEFT SHIFT is Present. MCH (RBC) [Entitic mass] 29.7 pg 27.0-32.0 [facility] Nucleated RBC/100 WBC (Bld) [Ratio] 0 % 0-5 [facility] MCHC Auto (RBC) [Mass/Vol]Or dered By: Renard Burgos on 04-03-2023 MCHC (RBC) [Mass/Vol] 32.4 g/dL 32-36 [facility] Platelets bldOrdered By: Lyubov Burgos on 04-03-2023 Platelets (Bld) [#/Vol] 216 10*3/uL 150-450 [facility] Absolute lymphocyte countOrd ered By: Renard Burgos on 03-27-2023 Lymphocytes Auto (Unsp spec) [#/Vol] 2.06 10*3/uL 0.83-4.51 [facility] Basophil percentageOrdered B y: Renard Burgos on 03-27-2023 Basophils/100 WBC (Bld) 0.4 % 0-1 [facility] Eosinophils/100 WBC (Bld) 0.2 % 0-5 [facility] Neutrophils (Bld) [#/Vol] 6.3 10*3/uL 2.0-7.7 [facility] Neutrophils/100 WBC (Bld) 68.8 % 47-70 [facility] WBC (Bld) [#/Vol] 9.1 10*3/uL 4.4-11.0 [facility] Blood erythrocytes count (nu mber/volume)Ordered By: Renard Burgos on 03-27-2023 RBC (Bld) [#/Vol] 4.51 10*6/uL 4.6-6.2 [facility] Blood hemoglobin measurement (mass/volume)Ordered By: Renard Burgos on 03-27-2023 Hemoglobin (Bld) [Mass/Vol] 13.2 g/dL 13.0-16.5 [facility] Blood lymphocytes/100 leukoc ytesOrdered By: Renard Burgos on 03-27-2023 Lymphocytes/100 WBC (Bld) 22.6 % 19-41 [facility] Blood monocytes/100 leukocyt esOrdered By: Renard Burgos on 03-27-2023 Monocytes/100 WBC (Bld) 7.3 % 0-10 [facility] Blood platelet mean volumeOr dered By: Renard Burgos on 03-27-2023 Platelet mean volume (Bld) [Entitic vol] 10.8 fL 6.2-12.0 [facility] Determination of erythrocyte mean corpuscular volume (MCV)Ordered By: Renard Burgos on 03-27-2023 MCV (RBC) [Entitic vol] 91.6 fL 80-94 [facility] Hematocrit Auto (Bld) [Volum e fraction]Ordered By: Renard Burgos on 03-27-2023 Hematocrit (Bld) [Volume fraction] 41.3 % 40-54 [facility] - Hematology and Cell countsOrdered By: Renard Burgos on 03-27-2023 Erythrocyte distribution width (RBC) [Entitic vol] 42.9 fL 35.1-43.9 [facility] Erythrocyte distribution width (RBC) [Ratio] 12.9 % 11.6-14.6 [facility] Immature granulocytes/100 WBC (Bld) 0.700 % 0.0-0.9 [facility] Comment on above: IG% - Immature Granu locytes (promyelocytes, myelocytes and metamyelocytes) > 1% indicates that a LEFT SHIFT is Present. MCH (RBC) [Entitic mass] 29.3 pg 27.0-32.0 [facility] Nucleated RBC/100 WBC (Bld) [Ratio] 0 % 0-5 [facility] MCHC Auto (RBC) [Mass/Vol]Or dered By: Renard Burgos on 03-27-2023 MCHC (RBC) [Mass/Vol] 32.0 g/dL 32-36 [facility] Platelets bldOrdered By: Lyubov Burgos on 03-27-2023 Platelets (Bld) [#/Vol] 205 10*3/uL 150-450 [facility] Absolute lymphocyte countOrd ered By: Renard Burgos on 03-20-2023 Lymphocytes Auto (Unsp spec) [#/Vol] 1.89 10*3/uL 0.83-4.51 [facility] Basophil percentageOrdered B y: Renard Burgos on 03-20-2023 Basophils/100 WBC (Bld) 0.5 % 0-1 [facility] Chloride [Moles/Vol] 107 mmol/L 98-107 [facility] Eosinophils/100 WBC (Bld) 0.4 % 0-5 [facility] Glucose [Mass/Vol] 124 mg/dL 74-106 [facility] Comment on above: Fasting Glucose resu lt from 100 to 125 mg/dL suggests IMPAIRED HOMEOSTASIS per A.D.A. criteria. Neutrophils (Bld) [#/Vol] 4.8 10*3/uL 2.0-7.7 [facility] Neutrophils/100 WBC (Bld) 64.9 % 47-70 [facility] Potassium [Moles/Vol] 3.6 mmol/L 3.5-5.1 [facility] Sodium [Moles/Vol] 142 mmol/L 136-145 [facility] WBC (Bld) [#/Vol] 7.4 10*3/uL 4.4-11.0 [facility] Blood erythrocytes count (nu mber/volume)Ordered By: Renard Burgos on 03-20-2023 RBC (Bld) [#/Vol] 4.63 10*6/uL 4.6-6.2 [facility] Blood hemoglobin measurement (mass/volume)Ordered By: Renard Burgos on 03-20-2023 Hemoglobin (Bld) [Mass/Vol] 13.7 g/dL 13.0-16.5 [facility] Blood lymphocytes/100 leukoc ytesOrdered By: Renard Burgos on 03-20-2023 Lymphocytes/100 WBC (Bld) 25.7 % 19-41 [facility] Blood monocytes/100 leukocyt esOrdered By: Renard Burgos on 03-20-2023 Monocytes/100 WBC (Bld) 8.2 % 0-10 [facility] Blood platelet mean volumeOr dered By: Renard Burgos on 03-20-2023 Platelet mean volume (Bld) [Entitic vol] 10.7 fL 6.2-12.0 [facility] Determination of erythrocyte mean corpuscular volume (MCV)Ordered By: Renard Burgos on 03-20-2023 MCV (RBC) [Entitic vol] 90.9 fL 80-94 [facility] Hematocrit Auto (Bld) [Volum e fraction]Ordered By: Renard Burgos on 03-20-2023 Hematocrit (Bld) [Volume fraction] 42.1 % 40-54 [facility] - Chemistry and C hemistry - challengeOrdered By: Renard Burgos on 03-20-2023 CO2 [Moles/Vol] 29.0 mmol/L 21.0-32.0 [facility] Urea nitrogen/Creatinine [Mass ratio] 30.7 mg/mg 10-20 [facility] - Hematology and Cell countsOrdered By: Renard Burgos on 03-20-2023 Erythrocyte distribution width (RBC) [Entitic vol] 43.0 fL 35.1-43.9 [facility] Erythrocyte distribution width (RBC) [Ratio] 12.9 % 11.6-14.6 [facility] Immature granulocytes/100 WBC (Bld) 0.300 % 0.0-0.9 [facility] Comment on above: IG% - Immature Granu locytes (promyelocytes, myelocytes and metamyelocytes) > 1% indicates that a LEFT SHIFT is Present. MCH (RBC) [Entitic mass] 29.6 pg 27.0-32.0 [facility] Nucleated RBC/100 WBC (Bld) [Ratio] 0 % 0-5 [facility] MCHC Auto (RBC) [Mass/Vol]Or dered By: Renard Burgos on 03-20-2023 MCHC (RBC) [Mass/Vol] 32.5 g/dL 32-36 [facility] No Panel InformationOrdered By: Renard Burgos on 03-20-2023 Estimated GFR (MDRD) Amer 178 mL/min >60 [facility] Comment on above: GFR Calc Estimated GFR (MDRD) Non-Af Amer 147 mL/min >60 [facility] Comment on above: Non- GFR Calc Platelets bldOrdered By: Pet lizy Burgos on 03-20-2023 Platelets (Bld) [#/Vol] 208 10*3/uL 150-450 [facility] Serum or plasma calcium gordy urement (mass/volume)Ordered By: Renard Burgos on 03-20-2023 Calcium [Mass/Vol] 8.1 mg/dL 8.5-10.1 [facility] Serum or plasma creatinine m easurement (mass/volume)Ordered By: Renard Burgos on 03-20-2023 Creatinine [Mass/Vol] 0.59 mg/dL 0.70-1.30 [facility] Comment on above: The validity of the calculated GFR & GFRAA in patients over 70 years has not been determined. Clinical correlation is essential. Serum or plasma urea nitroge n measurement (mass/volume)Ordered By: Renard Burgos on 03-20-2023 Urea nitrogen [Mass/Vol] 18 mg/dL 7-18 [facility] Thin prep Papanicolaou smear with manual screeningOrdered By: Renard Burgos on 03-20-2023 Thin prep Papanicolaou smear with manual screening 6 5-15 [facility] Erythrocyte sedimentation ra teOrdered By: Renard Burgos on 03-16-2023 ESR (Bld) [Velocity] 3 mm/h 0-20 [facility] Absolute lymphocyte countOrd ered By: Renard Burgos on 03-13-2023 Lymphocytes Auto (Unsp spec) [#/Vol] 2.36 10*3/uL 0.83-4.51 [facility] Basophil percentageOrdered B y: Renard Burgos on 03-13-2023 Basophils/100 WBC (Bld) 0.5 % 0-1 [facility] Eosinophils/100 WBC (Bld) 0.5 % 0-5 [facility] Neutrophils (Bld) [#/Vol] 5.2 10*3/uL 2.0-7.7 [facility] Neutrophils/100 WBC (Bld) 61.3 % 47-70 [facility] WBC (Bld) [#/Vol] 8.5 10*3/uL 4.4-11.0 [facility] Blood erythrocytes count (nu mber/volume)Ordered By: Renard Burgos on 03-13-2023 RBC (Bld) [#/Vol] 4.55 10*6/uL 4.6-6.2 [facility] Blood hemoglobin measurement (mass/volume)Ordered By: Renard Burgos on 03-13-2023 Hemoglobin (Bld) [Mass/Vol] 13.4 g/dL 13.0-16.5 [facility] Blood lymphocytes/100 leukoc ytesOrdered By: Renard Burgos on 03-13-2023 Lymphocytes/100 WBC (Bld) 27.7 % 19-41 [facility] Blood monocytes/100 leukocyt esOrdered By: Renard Burgos on 03-13-2023 Monocytes/100 WBC (Bld) 9.5 % 0-10 [facility] Blood platelet mean volumeOr dered By: Renard Burgos on 03-13-2023 Platelet mean volume (Bld) [Entitic vol] 10.6 fL 6.2-12.0 [facility] Determination of erythrocyte mean corpuscular volume (MCV)Ordered By: Renard Burgos on 03-13-2023 MCV (RBC) [Entitic vol] 93.4 fL 80-94 [facility] Hematocrit Auto (Bld) [Volum e fraction]Ordered By: Renard Burgos on 03-13-2023 Hematocrit (Bld) [Volume fraction] 42.5 % 40-54 [facility] - Hematology and Cell countsOrdered By: Renard Burgos on 03-13-2023 Erythrocyte distribution width (RBC) [Entitic vol] 44.1 fL 35.1-43.9 [facility] Erythrocyte distribution width (RBC) [Ratio] 13.0 % 11.6-14.6 [facility] Immature granulocytes/100 WBC (Bld) 0.500 % 0.0-0.9 [facility] Comment on above: IG% - Immature Granu locytes (promyelocytes, myelocytes and metamyelocytes) > 1% indicates that a LEFT SHIFT is Present. MCH (RBC) [Entitic mass] 29.5 pg 27.0-32.0 [facility] Nucleated RBC/100 WBC (Bld) [Ratio] 0 % 0-5 [facility] MCHC Auto (RBC) [Mass/Vol]Or dered By: Renard Burgos on 03-13-2023 MCHC (RBC) [Mass/Vol] 31.5 g/dL 32-36 [facility] Platelets bldOrdered By: Lyubov Hensleyrustam on 03-13-2023 Platelets (Bld) [#/Vol] 200 10*3/uL 150-450 [facility] Absolute lymphocyte countOrd ered By: Renard Hensleyrustam on 03-06-2023 Lymphocytes Auto (Unsp spec) [#/Vol] 1.80 10*3/uL 0.83-4.51 [facility] Basophil percentageOrdered B y: Renard Loretta on 03-06-2023 Basophils/100 WBC (Bld) 0.5 % 0-1 [facility] Bilirubin [Mass/Vol] 0.40 mg/dL 0.20-1.00 [facility] Comment on above: For patients on eltr ombopag therapy, use of Dimension [place] TBIL is not recommended. Chloride [Moles/Vol] 107 mmol/L 98-107 [facility] Cholesterol [Mass/Vol] 118 mg/dL <200 [facility] Comment on above: <200 mg/dL Desirable 200-240 mg/dL Borderline >240 mg/dL High Risk Eosinophils/100 WBC (Bld) 0.5 % 0-5 [facility] Glucose [Mass/Vol] 107 mg/dL 74-106 [facility] Comment on above: Fasting Glucose resu lt from 100 to 125 mg/dL suggests IMPAIRED HOMEOSTASIS per A.D.A. criteria. Neutrophils (Bld) [#/Vol] 5.5 10*3/uL 2.0-7.7 [facility] Neutrophils/100 WBC (Bld) 68.0 % 47-70 [facility] Potassium [Moles/Vol] 3.8 mmol/L 3.5-5.1 [facility] Protein [Mass/Vol] 6.3 g/dL 6.4-8.2 [facility] Sodium [Moles/Vol] 141 mmol/L 136-145 [facility] Triglyceride [Mass/Vol] 185 mg/dL <199 [facility] Comment on above: The drugs N-Acetylcy steine and Metamizole may falsely depress this assay.Serum Triglycerides Reference Interval Normal <150 mg/dL Borderline high 150 - 199 mg/dL High 200 - 499 mg/dL Very High > or = 500 mg/dL WBC (Bld) [#/Vol] 8.1 10*3/uL 4.4-11.0 [facility] Blood erythrocytes count (nu mber/volume)Ordered By: Renard Burgos on 03-06-2023 RBC (Bld) [#/Vol] 4.69 10*6/uL 4.6-6.2 [facility] Blood hemoglobin measurement (mass/volume)Ordered By: Renard Burgos on 03-06-2023 Hemoglobin (Bld) [Mass/Vol] 14.0 g/dL 13.0-16.5 [facility] Blood lymphocytes/100 leukoc ytesOrdered By: Renard Burgos on 03-06-2023 Lymphocytes/100 WBC (Bld) 22.3 % 19-41 [facility] Blood monocytes/100 leukocyt esOrdered By: Renard Burgos on 03-06-2023 Monocytes/100 WBC (Bld) 8.2 % 0-10 [facility] Blood platelet mean volumeOr dered By: Renard Burgos on 03-06-2023 Platelet mean volume (Bld) [Entitic vol] 10.9 fL 6.2-12.0 [facility] Determination of erythrocyte mean corpuscular volume (MCV)Ordered By: Renard Burgos on 03-06-2023 MCV (RBC) [Entitic vol] 91.9 fL 80-94 [facility] Hematocrit Auto (Bld) [Volum e fraction]Ordered By: Renard Burgos on 03-06-2023 Hematocrit (Bld) [Volume fraction] 43.1 % 40-54 [facility] - Chemistry and C hemistry - challengeOrdered By: Renard Burgos on 03-06-2023 ALP [Catalytic activity/Vol] 120 U/L 45-117 [facility] ALT [Catalytic activity/Vol] 20 U/L 16-61 [facility] CO2 [Moles/Vol] 30.0 mmol/L 21.0-32.0 [facility] Globulin (S) [Mass/Vol] 3.3 g/dL 2.2-4.2 [facility] Urea nitrogen/Creatinine [Mass ratio] 27.1 mg/mg 10-20 [facility] - Hematology and Cell countsOrdered By: Renard Burgos on 03-06-2023 Erythrocyte distribution width (RBC) [Entitic vol] 42.5 fL 35.1-43.9 [facility] Erythrocyte distribution width (RBC) [Ratio] 12.9 % 11.6-14.6 [facility] Immature granulocytes/100 WBC (Bld) 0.500 % 0.0-0.9 [facility] Comment on above: IG% - Immature Granu locytes (promyelocytes, myelocytes and metamyelocytes) > 1% indicates that a LEFT SHIFT is Present. MCH (RBC) [Entitic mass] 29.9 pg 27.0-32.0 [facility] Nucleated RBC/100 WBC (Bld) [Ratio] 0 % 0-5 [facility] MCHC Auto (RBC) [Mass/Vol]Or dered By: Renard Burgos on 03-06-2023 MCHC (RBC) [Mass/Vol] 32.5 g/dL 32-36 [facility] No Panel InformationOrdered By: Renard Burgos on 03-06-2023 Estimated GFR (MDRD) Amer 165 mL/min >60 [facility] Comment on above: GFR Calc Estimated GFR (MDRD) Non-Af Amer 136 mL/min >60 [facility] Comment on above: Non- GFR Calc Platelets bldOrdered By: yLubov Burgos on 03-06-2023 Platelets (Bld) [#/Vol] 232 10*3/uL 150-450 [facility] Serum or plasma albumin gordy urement (mass/volume)Ordered By: Renard Burgos on 03-06-2023 Albumin [Mass/Vol] 3.0 g/dL 3.2-5.0 [facility] Serum or plasma albumin/glob ulin mass ratioOrdered By: Renard Burgos on 03-06-2023 Albumin/Globulin [Mass ratio] 0.9 {ratio} 0.9-2.4 [facility] Serum or plasma calcium gordy urement (mass/volume)Ordered By: Renard Burgos on 03-06-2023 Calcium [Mass/Vol] 8.2 mg/dL 8.5-10.1 [facility] Serum or plasma cholesterol in HDL measurement (mass/volume)Ordered By: Renard Burgos on 03-06-2023 Cholesterol in HDL [Mass/Vol] 25 mg/dL >40 [facility] Comment on above: The drugs N-Acetylcy steine and Metamizole may falsely depress this assay. Reference Range HDL <40 mg/dL Low HDL Cholesterol HDL >or= 60 mg/dL High HDL Cholesterol Serum or plasma cholesterol in VLDL measurement (mass/volume)Ordered By: Renard Burgos on 03-06-2023 Cholesterol in VLDL [Mass/Vol] 37 mg/dL 5-40 [facility] Serum or plasma creatinine m easurement (mass/volume)Ordered By: Renard Burgos on 03-06-2023 Creatinine [Mass/Vol] 0.63 mg/dL 0.70-1.30 [facility] Comment on above: The validity of the calculated GFR & GFRAA in patients over 70 years has not been determined. Clinical correlation is essential. Serum or plasma low density lipoprotein (LDL) cholesterol measurement (mass/volume)Ordered By: Renard Burgos on 03-06-2023 Cholesterol in LDL [Mass/Vol] 56 mg/dL 0-130 [facility] Serum or plasma urea nitroge n measurement (mass/volume)Ordered By: Renard Burgos on 03-06-2023 Urea nitrogen [Mass/Vol] 17 mg/dL 7-18 [facility] Thin prep Papanicolaou smear with manual screeningOrdered By: Renard Burgos on 03-06-2023 Thin prep Papanicolaou smear with manual screening 10 U/L 15-37 [facility] Thin prep Papanicolaou smear with manual screening 4 5-15 [facility] Absolute lymphocyte countOrd ered By: Renard Burgos on 02-27-2023 Lymphocytes Auto (Unsp spec) [#/Vol] 2.13 10*3/uL 0.83-4.51 [facility] Basophil percentageOrdered B y: Renard Burgos on 02-27-2023 Basophils/100 WBC (Bld) 0.6 % 0-1 [facility] Eosinophils/100 WBC (Bld) 0.6 % 0-5 [facility] Neutrophils (Bld) [#/Vol] 5.1 10*3/uL 2.0-7.7 [facility] Neutrophils/100 WBC (Bld) 63.3 % 47-70 [facility] WBC (Bld) [#/Vol] 8.1 10*3/uL 4.4-11.0 [facility] Blood erythrocytes count (nu mber/volume)Ordered By: Renard Burgos on 02-27-2023 RBC (Bld) [#/Vol] 4.54 10*6/uL 4.6-6.2 [facility] Blood hemoglobin measurement (mass/volume)Ordered By: Renard Burgos on 02-27-2023 Hemoglobin (Bld) [Mass/Vol] 13.7 g/dL 13.0-16.5 [facility] Blood lymphocytes/100 leukoc ytesOrdered By: Renard Burgos on 02-27-2023 Lymphocytes/100 WBC (Bld) 26.4 % 19-41 [facility] Blood monocytes/100 leukocyt esOrdered By: Renard Burgos on 02-27-2023 Monocytes/100 WBC (Bld) 8.7 % 0-10 [facility] Blood platelet mean volumeOr dered By: Renard Burgos on 02-27-2023 Platelet mean volume (Bld) [Entitic vol] 10.8 fL 6.2-12.0 [facility] Determination of erythrocyte mean corpuscular volume (MCV)Ordered By: Renard Burgos on 02-27-2023 MCV (RBC) [Entitic vol] 89.9 fL 80-94 [facility] Hematocrit Auto (Bld) [Volum e fraction]Ordered By: Renard Burgos on 02-27-2023 Hematocrit (Bld) [Volume fraction] 40.8 % 40-54 [facility] - Hematology and Cell countsOrdered By: Renard Burgos on 02-27-2023 Erythrocyte distribution width (RBC) [Entitic vol] 41.0 fL 35.1-43.9 [facility] Erythrocyte distribution width (RBC) [Ratio] 12.5 % 11.6-14.6 [facility] Immature granulocytes/100 WBC (Bld) 0.400 % 0.0-0.9 [facility] Comment on above: IG% - Immature Granu locytes (promyelocytes, myelocytes and metamyelocytes) > 1% indicates that a LEFT SHIFT is Present. MCH (RBC) [Entitic mass] 30.2 pg 27.0-32.0 [facility] Nucleated RBC/100 WBC (Bld) [Ratio] 0 % 0-5 [facility] MCHC Auto (RBC) [Mass/Vol]Or dered By: Renard Burgos on 02-27-2023 MCHC (RBC) [Mass/Vol] 33.6 g/dL 32-36 [facility] Platelets bldOrdered By: Lyubov Burgos on 02-27-2023 Platelets (Bld) [#/Vol] 182 10*3/uL 150-450 [facility] Absolute lymphocyte countOrd ered By: Renard Burgos on 02-20-2023 Lymphocytes Auto (Unsp spec) [#/Vol] 2.23 10*3/uL 0.83-4.51 [facility] Basophil percentageOrdered B y: Renard Burgos on 02-20-2023 Basophils/100 WBC (Bld) 0.3 % 0-1 [facility] Eosinophils/100 WBC (Bld) 0.7 % 0-5 [facility] Neutrophils (Bld) [#/Vol] 5.9 10*3/uL 2.0-7.7 [facility] Neutrophils/100 WBC (Bld) 65.7 % 47-70 [facility] WBC (Bld) [#/Vol] 9.0 10*3/uL 4.4-11.0 [facility] Blood erythrocytes count (nu mber/volume)Ordered By: Renard Burgos on 02-20-2023 RBC (Bld) [#/Vol] 4.46 10*6/uL 4.6-6.2 [facility] Blood hemoglobin measurement (mass/volume)Ordered By: Renard Burgos on 02-20-2023 Hemoglobin (Bld) [Mass/Vol] 13.3 g/dL 13.0-16.5 [facility] Blood lymphocytes/100 leukoc ytesOrdered By: Renard Burgos on 02-20-2023 Lymphocytes/100 WBC (Bld) 24.7 % 19-41 [facility] Blood monocytes/100 leukocyt esOrdered By: Renard Burgos on 02-20-2023 Monocytes/100 WBC (Bld) 8.0 % 0-10 [facility] Blood platelet mean volumeOr dered By: Renard Burgos on 02-20-2023 Platelet mean volume (Bld) [Entitic vol] 10.7 fL 6.2-12.0 [facility] Determination of erythrocyte mean corpuscular volume (MCV)Ordered By: Renard Burgos on 02-20-2023 MCV (RBC) [Entitic vol] 90.6 fL 80-94 [facility] Hematocrit Auto (Bld) [Volum e fraction]Ordered By: Renard Burgos on 02-20-2023 Hematocrit (Bld) [Volume fraction] 40.4 % 40-54 [facility] - Hematology and Cell countsOrdered By: Renard Burgos on 02-20-2023 Erythrocyte distribution width (RBC) [Entitic vol] 41.9 fL 35.1-43.9 [facility] Erythrocyte distribution width (RBC) [Ratio] 12.8 % 11.6-14.6 [facility] Immature granulocytes/100 WBC (Bld) 0.600 % 0.0-0.9 [facility] Comment on above: IG% - Immature Granu locytes (promyelocytes, myelocytes and metamyelocytes) > 1% indicates that a LEFT SHIFT is Present. MCH (RBC) [Entitic mass] 29.8 pg 27.0-32.0 [facility] Nucleated RBC/100 WBC (Bld) [Ratio] 0 % 0-5 [facility] MCHC Auto (RBC) [Mass/Vol]Or dered By: Renard Burgos on 02-20-2023 MCHC (RBC) [Mass/Vol] 32.9 g/dL 32-36 [facility] Platelets bldOrdered By: Lyubov Burgos on 02-20-2023 Platelets (Bld) [#/Vol] 220 10*3/uL 150-450 [facility] Absolute lymphocyte countOrd ered By: Renard Burgos on 02-13-2023 Lymphocytes Auto (Unsp spec) [#/Vol] 2.01 10*3/uL 0.83-4.51 [facility] Basophil percentageOrdered B y: Renard Burgos on 02-13-2023 Basophils/100 WBC (Bld) 0.7 % 0-1 [facility] Eosinophils/100 WBC (Bld) 0.5 % 0-5 [facility] Neutrophils (Bld) [#/Vol] 4.7 10*3/uL 2.0-7.7 [facility] Neutrophils/100 WBC (Bld) 63.3 % 47-70 [facility] WBC (Bld) [#/Vol] 7.4 10*3/uL 4.4-11.0 [facility] Blood erythrocytes count (nu mber/volume)Ordered By: Renard Burgos on 02-13-2023 RBC (Bld) [#/Vol] 4.46 10*6/uL 4.6-6.2 [facility] Blood hemoglobin measurement (mass/volume)Ordered By: Renard Burgos on 02-13-2023 Hemoglobin (Bld) [Mass/Vol] 13.6 g/dL 13.0-16.5 [facility] Blood lymphocytes/100 leukoc ytesOrdered By: Renard Burgos on 02-13-2023 Lymphocytes/100 WBC (Bld) 27.0 % 19-41 [facility] Blood monocytes/100 leukocyt esOrdered By: Renard Burgos on 02-13-2023 Monocytes/100 WBC (Bld) 8.1 % 0-10 [facility] Blood platelet mean volumeOr dered By: Renard Burgos on 02-13-2023 Platelet mean volume (Bld) [Entitic vol] 10.7 fL 6.2-12.0 [facility] Determination of erythrocyte mean corpuscular volume (MCV)Ordered By: Renard Burgos on 02-13-2023 MCV (RBC) [Entitic vol] 92.6 fL 80-94 [facility] Hematocrit Auto (Bld) [Volum e fraction]Ordered By: Renard Burgos on 02-13-2023 Hematocrit (Bld) [Volume fraction] 41.3 % 40-54 [facility] - Hematology and Cell countsOrdered By: Renard Burgos on 02-13-2023 Erythrocyte distribution width (RBC) [Entitic vol] 42.7 fL 35.1-43.9 [facility] Erythrocyte distribution width (RBC) [Ratio] 12.6 % 11.6-14.6 [facility] Immature granulocytes/100 WBC (Bld) 0.400 % 0.0-0.9 [facility] Comment on above: IG% - Immature Granu locytes (promyelocytes, myelocytes and metamyelocytes) > 1% indicates that a LEFT SHIFT is Present. MCH (RBC) [Entitic mass] 30.5 pg 27.0-32.0 [facility] Nucleated RBC/100 WBC (Bld) [Ratio] 0 % 0-5 [facility] MCHC Auto (RBC) [Mass/Vol]Or dered By: Renard Burgos on 02-13-2023 MCHC (RBC) [Mass/Vol] 32.9 g/dL 32-36 [facility] Platelets bldOrdered By: Lyubov Burgos on 02-13-2023 Platelets (Bld) [#/Vol] 187 10*3/uL 150-450 [facility] Absolute lymphocyte countOrd ered By: Renard Burgos on 02-06-2023 Lymphocytes Auto (Unsp spec) [#/Vol] 2.28 10*3/uL 0.83-4.51 [facility] Basophil percentageOrdered B y: Renard Burgos on 02-06-2023 Basophils/100 WBC (Bld) 0.5 % 0-1 [facility] Eosinophils/100 WBC (Bld) 0.7 % 0-5 [facility] Neutrophils (Bld) [#/Vol] 5.5 10*3/uL 2.0-7.7 [facility] Neutrophils/100 WBC (Bld) 63.7 % 47-70 [facility] WBC (Bld) [#/Vol] 8.6 10*3/uL 4.4-11.0 [facility] Blood erythrocytes count (nu mber/volume)Ordered By: Renard Burgos on 02-06-2023 RBC (Bld) [#/Vol] 4.71 10*6/uL 4.6-6.2 [facility] Blood hemoglobin measurement (mass/volume)Ordered By: Renard Burgos on 02-06-2023 Hemoglobin (Bld) [Mass/Vol] 14.1 g/dL 13.0-16.5 [facility] Blood lymphocytes/100 leukoc ytesOrdered By: Renard Burgos on 02-06-2023 Lymphocytes/100 WBC (Bld) 26.4 % 19-41 [facility] Blood monocytes/100 leukocyt esOrdered By: Renard Burgos on 02-06-2023 Monocytes/100 WBC (Bld) 8.2 % 0-10 [facility] Blood platelet mean volumeOr dered By: Renard Burgos on 02-06-2023 Platelet mean volume (Bld) [Entitic vol] 11.0 fL 6.2-12.0 [facility] Determination of erythrocyte mean corpuscular volume (MCV)Ordered By: Renard Burgos on 02-06-2023 MCV (RBC) [Entitic vol] 94.5 fL 80-94 [facility] Hematocrit Auto (Bld) [Volum e fraction]Ordered By: Renard Burgos on 02-06-2023 Hematocrit (Bld) [Volume fraction] 44.5 % 40-54 [facility] - Hematology and Cell countsOrdered By: Renard Burgos on 02-06-2023 Erythrocyte distribution width (RBC) [Entitic vol] 43.5 fL 35.1-43.9 [facility] Erythrocyte distribution width (RBC) [Ratio] 12.7 % 11.6-14.6 [facility] Immature granulocytes/100 WBC (Bld) 0.500 % 0.0-0.9 [facility] Comment on above: IG% - Immature Granu locytes (promyelocytes, myelocytes and metamyelocytes) > 1% indicates that a LEFT SHIFT is Present. MCH (RBC) [Entitic mass] 29.9 pg 27.0-32.0 [facility] Nucleated RBC/100 WBC (Bld) [Ratio] 0 % 0-5 [facility] MCHC Auto (RBC) [Mass/Vol]Or dered By: Renard Burgos on 02-06-2023 MCHC (RBC) [Mass/Vol] 31.7 g/dL 32-36 [facility] Platelets bldOrdered By: Lyubov Burgos on 02-06-2023 Platelets (Bld) [#/Vol] 196 10*3/uL 150-450 [facility] Absolute lymphocyte countOrd ered By: Renard Burgos on 01-30-2023 Lymphocytes Auto (Unsp spec) [#/Vol] 1.91 10*3/uL 0.83-4.51 [facility] Basophil percentageOrdered B y: Renard Burgos on 01-30-2023 Basophils/100 WBC (Bld) 0.5 % 0-1 [facility] Eosinophils/100 WBC (Bld) 0.5 % 0-5 [facility] Neutrophils (Bld) [#/Vol] 6.0 10*3/uL 2.0-7.7 [facility] Neutrophils/100 WBC (Bld) 69.4 % 47-70 [facility] WBC (Bld) [#/Vol] 8.7 10*3/uL 4.4-11.0 [facility] Basophil percentage 0 SEEN /hpf 0-5 [facility] Bilirubin Test strip Ql (U)O rdered By: Renard Burgos on 01-30-2023 Bilirubin Ql (U) Negative Negative [facility] Blood erythrocytes count (nu mber/volume)Ordered By: Renard Burgos on 01-30-2023 RBC (Bld) [#/Vol] 4.50 10*6/uL 4.6-6.2 [facility] Blood hemoglobin measurement (mass/volume)Ordered By: Renard Burgos on 01-30-2023 Hemoglobin (Bld) [Mass/Vol] 13.5 g/dL 13.0-16.5 [facility] Blood lymphocytes/100 leukoc ytesOrdered By: Renard Burgos on 01-30-2023 Lymphocytes/100 WBC (Bld) 22.1 % 19-41 [facility] Blood monocytes/100 leukocyt esOrdered By: Renard Burgos on 01-30-2023 Monocytes/100 WBC (Bld) 7.2 % 0-10 [facility] Blood platelet mean volumeOr dered By: Renard Burgos on 01-30-2023 Platelet mean volume (Bld) [Entitic vol] 11.1 fL 6.2-12.0 [facility] Culture, urineOrdered By: Garrick Bhatt on 01-30-2023 Bacteria identified Cx Nom (U) Positive [facility] Determination of erythrocyte mean corpuscular volume (MCV)Ordered By: Renard Burgos on 01-30-2023 MCV (RBC) [Entitic vol] 91.3 fL 80-94 [facility] Hematocrit Auto (Bld) [Volum e fraction]Ordered By: Renard Burgos on 01-30-2023 Hematocrit (Bld) [Volume fraction] 41.1 % 40-54 [facility] Ketones Test strip Ql (U)Ord ered By: Renard Burgos on 01-30-2023 Ketones Ql (U) Negative Negative [facility] - Hematology and Cell countsOrdered By: Renard Burgos on 01-30-2023 Erythrocyte distribution width (RBC) [Entitic vol] 41.4 fL 35.1-43.9 [facility] Erythrocyte distribution width (RBC) [Ratio] 12.6 % 11.6-14.6 [facility] Immature granulocytes/100 WBC (Bld) 0.300 % 0.0-0.9 [facility] Comment on above: IG% - Immature Granu locytes (promyelocytes, myelocytes and metamyelocytes) > 1% indicates that a LEFT SHIFT is Present. MCH (RBC) [Entitic mass] 30.0 pg 27.0-32.0 [facility] Nucleated RBC/100 WBC (Bld) [Ratio] 0 % 0-5 [facility] MCHC Auto (RBC) [Mass/Vol]Or dered By: Renard Burgos on 01-30-2023 MCHC (RBC) [Mass/Vol] 32.8 g/dL 32-36 [facility] Mucus LM Ql (Urine sed)Order ed By: Renard Burgos on 01-30-2023 Mucus Ql (Urine sed) 0 SEEN /hpf [facility] Nitrite Test strip Ql (U)Ord ered By: Renard Burgos on 01-30-2023 Nitrite Ql (U) Negative Negative [facility] No Panel InformationOrdered By: Renard Burgos on 01-30-2023 Prostate Specific Antigen Screen 4.18 ng/mL 0.00-4.00 [facility] Comment on above: This test was perfor med using the TPSA assay method for theDimension chemistry system. Values obtained with differentassay methods cannot be used interchangably.When changing PSA assays in the course of monitoring apatient, additional sequential testing should be carriedout to confirm baseline values. Platelets bldOrdered By: Lyubov Burgos on 01-30-2023 Platelets (Bld) [#/Vol] 205 10*3/uL 150-450 [facility] Protein Test strip Ql (U)Ord ered By: Renard Burgos on 01-30-2023 Protein Ql (U) Negative Negative [facility] Squamous epithelial cells de tection in urine sediment by light microscopyOrdered By: Renard Burgos on 01-30-2023 Epithelial cells.squamous LM Ql (Urine sed) 0-5 SEEN /hpf 0-5 [facility] Urine blood detectionOrdered By: Renard Burgos on 01-30-2023 RBC Ql (U) Negative Negative [facility] RBC Ql (U) 0 SEEN /hpf 0-5 [facility] Urine clarityOrdered By: Lyubov Burgos on 01-30-2023 Clarity (U) Clear Clear [facility] Urine color determinationOrd ered By: Renard Burgos on 01-30-2023 Color (U) Yellow Yellow [facility] Urine glucose detectionOrder ed By: Renard Burgos on 01-30-2023 Glucose Ql (U) Normal mg/dl Normal [facility] Urine leukocyte esterase det ection by dipstickOrdered By: Renard Burgos on 01-30-2023 Leukocyte esterase Test strip Ql (U) Negative Negative [facility] Urine pHOrdered By: Renard ocampo on 01-30-2023 pH (U) 8.0 [pH] 5.0 - 8.0 [facility] Urine sediment bacteria coun t by microscopy (number/high power field)Ordered By: Renard Burgos on 01-30-2023 Bacteria LM.HPF (Urine sed) [#/Area] 0 /[HPF] None Seen [facility] Urine specific gravity measu rementOrdered By: Renard Burgos on 01-30-2023 Specific gravity (U) [Rel density] 1.010 1.002-1.030 [facility] Urobilinogen Auto test strip Ql (U)Ordered By: Renard Burgos on 01-30-2023 Urobilinogen Ql (U) Normal mg/dl Normal [facility] Absolute lymphocyte countOrd ered By: Renard Burgos on 01-23-2023 Lymphocytes Auto (Unsp spec) [#/Vol] 2.32 10*3/uL 0.83-4.51 [facility] Basophil percentageOrdered B y: Renard Burgos on 01-23-2023 Basophils/100 WBC (Bld) 0.6 % 0-1 [facility] Eosinophils/100 WBC (Bld) 0.4 % 0-5 [facility] Neutrophils (Bld) [#/Vol] 5.3 10*3/uL 2.0-7.7 [facility] Neutrophils/100 WBC (Bld) 62.7 % 47-70 [facility] WBC (Bld) [#/Vol] 8.4 10*3/uL 4.4-11.0 [facility] Blood erythrocytes count (nu mber/volume)Ordered By: Renard Burgos on 01-23-2023 RBC (Bld) [#/Vol] 4.49 10*6/uL 4.6-6.2 [facility] Blood hemoglobin measurement (mass/volume)Ordered By: Renard Burgos on 01-23-2023 Hemoglobin (Bld) [Mass/Vol] 13.6 g/dL 13.0-16.5 [facility] Blood lymphocytes/100 leukoc ytesOrdered By: Renard Burgos on 01-23-2023 Lymphocytes/100 WBC (Bld) 27.5 % 19-41 [facility] Blood monocytes/100 leukocyt esOrdered By: Renard Burgos on 01-23-2023 Monocytes/100 WBC (Bld) 8.2 % 0-10 [facility] Blood platelet mean volumeOr dered By: Renard Burgos on 01-23-2023 Platelet mean volume (Bld) [Entitic vol] 10.9 fL 6.2-12.0 [facility] Determination of erythrocyte mean corpuscular volume (MCV)Ordered By: Renard Burgos on 01-23-2023 MCV (RBC) [Entitic vol] 93.1 fL 80-94 [facility] Hematocrit Auto (Bld) [Volum e fraction]Ordered By: Renard Burgos on 01-23-2023 Hematocrit (Bld) [Volume fraction] 41.8 % 40-54 [facility] - Hematology and Cell countsOrdered By: Renard Burgos on 01-23-2023 Erythrocyte distribution width (RBC) [Entitic vol] 42.7 fL 35.1-43.9 [facility] Erythrocyte distribution width (RBC) [Ratio] 12.6 % 11.6-14.6 [facility] Immature granulocytes/100 WBC (Bld) 0.600 % 0.0-0.9 [facility] Comment on above: IG% - Immature Granu locytes (promyelocytes, myelocytes and metamyelocytes) > 1% indicates that a LEFT SHIFT is Present. MCH (RBC) [Entitic mass] 30.3 pg 27.0-32.0 [facility] Nucleated RBC/100 WBC (Bld) [Ratio] 0 % 0-5 [facility] MCHC Auto (RBC) [Mass/Vol]Or dered By: Renard Burgos on 01-23-2023 MCHC (RBC) [Mass/Vol] 32.5 g/dL 32-36 [facility] Platelets bldOrdered By: Lyubov Burgos on 01-23-2023 Platelets (Bld) [#/Vol] 220 10*3/uL 150-450 [facility] Absolute lymphocyte countOrd ered By: Renard Burgos on 01-16-2023 Lymphocytes Auto (Unsp spec) [#/Vol] 1.80 10*3/uL 0.83-4.51 [facility] Basophil percentageOrdered B y: Renard Burgos on 01-16-2023 Basophils/100 WBC (Bld) 0.4 % 0-1 [facility] Eosinophils/100 WBC (Bld) 0.4 % 0-5 [facility] Neutrophils (Bld) [#/Vol] 7.2 10*3/uL 2.0-7.7 [facility] Neutrophils/100 WBC (Bld) 73.5 % 47-70 [facility] WBC (Bld) [#/Vol] 9.8 10*3/uL 4.4-11.0 [facility] Blood erythrocytes count (nu mber/volume)Ordered By: Renard Burgos on 01-16-2023 RBC (Bld) [#/Vol] 4.77 10*6/uL 4.6-6.2 [facility] Blood hemoglobin measurement (mass/volume)Ordered By: Renard Burgos on 01-16-2023 Hemoglobin (Bld) [Mass/Vol] 14.1 g/dL 13.0-16.5 [facility] Blood lymphocytes/100 leukoc ytesOrdered By: Renard Burgos on 01-16-2023 Lymphocytes/100 WBC (Bld) 18.4 % 19-41 [facility] Blood monocytes/100 leukocyt esOrdered By: Renard Burgos on 01-16-2023 Monocytes/100 WBC (Bld) 6.9 % 0-10 [facility] Blood platelet mean volumeOr dered By: Renard Burgos on 01-16-2023 Platelet mean volume (Bld) [Entitic vol] 10.6 fL 6.2-12.0 [facility] Determination of erythrocyte mean corpuscular volume (MCV)Ordered By: Renard Burgos on 01-16-2023 MCV (RBC) [Entitic vol] 92.5 fL 80-94 [facility] Hematocrit Auto (Bld) [Volum e fraction]Ordered By: Renard Burgos on 01-16-2023 Hematocrit (Bld) [Volume fraction] 44.1 % 40-54 [facility] - Hematology and Cell countsOrdered By: Renard Burgos on 01-16-2023 Erythrocyte distribution width (RBC) [Entitic vol] 41.8 fL 35.1-43.9 [facility] Erythrocyte distribution width (RBC) [Ratio] 12.4 % 11.6-14.6 [facility] Immature granulocytes/100 WBC (Bld) 0.400 % 0.0-0.9 [facility] Comment on above: IG% - Immature Granu locytes (promyelocytes, myelocytes and metamyelocytes) > 1% indicates that a LEFT SHIFT is Present. MCH (RBC) [Entitic mass] 29.6 pg 27.0-32.0 [facility] Nucleated RBC/100 WBC (Bld) [Ratio] 0 % 0-5 [facility] MCHC Auto (RBC) [Mass/Vol]Or dered By: Renard Burgos on 01-16-2023 MCHC (RBC) [Mass/Vol] 32.0 g/dL 32-36 [facility] Platelets bldOrdered By: Lyubov Burgos on 01-16-2023 Platelets (Bld) [#/Vol] 221 10*3/uL 150-450 [facility] Absolute lymphocyte countOrd ered By: Renard Burgos on 01-09-2023 Lymphocytes Auto (Unsp spec) [#/Vol] 2.41 10*3/uL 0.83-4.51 [facility] Basophil percentageOrdered B y: Renard Burgos on 01-09-2023 Basophils/100 WBC (Bld) 0.7 % 0-1 [facility] Eosinophils/100 WBC (Bld) 0.8 % 0-5 [facility] Neutrophils (Bld) [#/Vol] 5.4 10*3/uL 2.0-7.7 [facility] Neutrophils/100 WBC (Bld) 60.5 % 47-70 [facility] WBC (Bld) [#/Vol] 8.9 10*3/uL 4.4-11.0 [facility] Blood erythrocytes count (nu mber/volume)Ordered By: Renard Burgos on 01-09-2023 RBC (Bld) [#/Vol] 4.56 10*6/uL 4.6-6.2 [facility] Blood hemoglobin measurement (mass/volume)Ordered By: Renard Burgos on 01-09-2023 Hemoglobin (Bld) [Mass/Vol] 13.8 g/dL 13.0-16.5 [facility] Blood lymphocytes/100 leukoc ytesOrdered By: Renard Burgos on 01-09-2023 Lymphocytes/100 WBC (Bld) 27.0 % 19-41 [facility] Blood monocytes/100 leukocyt esOrdered By: Renard Burgos on 01-09-2023 Monocytes/100 WBC (Bld) 10.7 % 0-10 [facility] Blood platelet mean volumeOr dered By: Renard Burgos on 01-09-2023 Platelet mean volume (Bld) [Entitic vol] 10.8 fL 6.2-12.0 [facility] Determination of erythrocyte mean corpuscular volume (MCV)Ordered By: Renard Burgos on 01-09-2023 MCV (RBC) [Entitic vol] 92.5 fL 80-94 [facility] Hematocrit Auto (Bld) [Volum e fraction]Ordered By: Renard Burgos on 01-09-2023 Hematocrit (Bld) [Volume fraction] 42.2 % 40-54 [facility] - Hematology and Cell countsOrdered By: Renard Burgos on 01-09-2023 Erythrocyte distribution width (RBC) [Entitic vol] 42.7 fL 35.1-43.9 [facility] Erythrocyte distribution width (RBC) [Ratio] 12.5 % 11.6-14.6 [facility] Immature granulocytes/100 WBC (Bld) 0.300 % 0.0-0.9 [facility] Comment on above: IG% - Immature Granu locytes (promyelocytes, myelocytes and metamyelocytes) > 1% indicates that a LEFT SHIFT is Present. MCH (RBC) [Entitic mass] 30.3 pg 27.0-32.0 [facility] Nucleated RBC/100 WBC (Bld) [Ratio] 0 % 0-5 [facility] MCHC Auto (RBC) [Mass/Vol]Or dered By: Renard Burgos on 01-09-2023 MCHC (RBC) [Mass/Vol] 32.7 g/dL 32-36 [facility] Platelets bldOrdered By: Lyubov Burgos on 01-09-2023 Platelets (Bld) [#/Vol] 209 10*3/uL 150-450 [facility] Absolute lymphocyte countOrd ered By: Renard Burgos on 01-03-2023 Lymphocytes Auto (Unsp spec) [#/Vol] 2.18 10*3/uL 0.83-4.51 [facility] Basophil percentageOrdered B y: Renard Burgos on 01-03-2023 Basophils/100 WBC (Bld) 0.6 % 0-1 [facility] Eosinophils/100 WBC (Bld) 0.5 % 0-5 [facility] Neutrophils (Bld) [#/Vol] 5.4 10*3/uL 2.0-7.7 [facility] Neutrophils/100 WBC (Bld) 64.2 % 47-70 [facility] WBC (Bld) [#/Vol] 8.4 10*3/uL 4.4-11.0 [facility] Blood erythrocytes count (nu mber/volume)Ordered By: Renard Burgos on 01-03-2023 RBC (Bld) [#/Vol] 4.59 10*6/uL 4.6-6.2 [facility] Blood hemoglobin measurement (mass/volume)Ordered By: Renard Burgos on 01-03-2023 Hemoglobin (Bld) [Mass/Vol] 13.9 g/dL 13.0-16.5 [facility] Blood lymphocytes/100 leukoc ytesOrdered By: Renard Burgos on 01-03-2023 Lymphocytes/100 WBC (Bld) 25.9 % 19-41 [facility] Blood monocytes/100 leukocyt esOrdered By: Renard Burgos on 01-03-2023 Monocytes/100 WBC (Bld) 8.3 % 0-10 [facility] Blood platelet mean volumeOr dered By: Renard Burgos on 01-03-2023 Platelet mean volume (Bld) [Entitic vol] 11.0 fL 6.2-12.0 [facility] Determination of erythrocyte mean corpuscular volume (MCV)Ordered By: Renard Burgos on 01-03-2023 MCV (RBC) [Entitic vol] 92.8 fL 80-94 [facility] Hematocrit Auto (Bld) [Volum e fraction]Ordered By: Renard Burgos on 01-03-2023 Hematocrit (Bld) [Volume fraction] 42.6 % 40-54 [facility] - Hematology and Cell countsOrdered By: Renard Burgos on 01-03-2023 Erythrocyte distribution width (RBC) [Entitic vol] 42.5 fL 35.1-43.9 [facility] Erythrocyte distribution width (RBC) [Ratio] 12.6 % 11.6-14.6 [facility] Immature granulocytes/100 WBC (Bld) 0.500 % 0.0-0.9 [facility] Comment on above: IG% - Immature Granu locytes (promyelocytes, myelocytes and metamyelocytes) > 1% indicates that a LEFT SHIFT is Present. MCH (RBC) [Entitic mass] 30.3 pg 27.0-32.0 [facility] Nucleated RBC/100 WBC (Bld) [Ratio] 0 % 0-5 [facility] MCHC Auto (RBC) [Mass/Vol]Or dered By: Renard Burgos on 01-03-2023 MCHC (RBC) [Mass/Vol] 32.6 g/dL 32-36 [facility] No Panel InformationOrdered By: Renard Burgos on 01-03-2023 Prostate Specific Antigen Screen 3.37 ng/mL 0.00-4.00 [facility] Comment on above: This test was perfor med using the TPSA assay method for the[employer] chemistry system. Values obtained with differentassay methods cannot be used interchangably.When changing PSA assays in the course of monitoring apatient, additional sequential testing should be carriedout to confirm baseline values. Platelets bldOrdered By: Lyubov Burgos on 01-03-2023 Platelets (Bld) [#/Vol] 200 10*3/uL 150-450 [facility] Absolute lymphocyte countOrd ered By: Renard Burgos on 12-26-2022 Lymphocytes Auto (Unsp spec) [#/Vol] 1.80 10*3/uL 0.83-4.51 [facility] Basophil percentageOrdered B y: Renard Burgos on 12-26-2022 Basophils/100 WBC (Bld) 0.4 % 0-1 [facility] Eosinophils/100 WBC (Bld) 0.6 % 0-5 [facility] Neutrophils (Bld) [#/Vol] 6.2 10*3/uL 2.0-7.7 [facility] Neutrophils/100 WBC (Bld) 69.8 % 47-70 [facility] WBC (Bld) [#/Vol] 8.9 10*3/uL 4.4-11.0 [facility] Blood erythrocytes count (nu mber/volume)Ordered By: Renard Burgos on 12-26-2022 RBC (Bld) [#/Vol] 4.58 10*6/uL 4.6-6.2 [facility] Blood hemoglobin measurement (mass/volume)Ordered By: Renard Burgos on 12-26-2022 Hemoglobin (Bld) [Mass/Vol] 14.0 g/dL 13.0-16.5 [facility] Blood lymphocytes/100 leukoc ytesOrdered By: Renard Burgos on 08-28-2023 Lymphocytes/100 WBC (Bld) 20.2 % 19-41 [facility] Blood monocytes/100 leukocyt esOrdered By: Renard Burgos on 12-26-2022 Monocytes/100 WBC (Bld) 8.6 % 0-10 [facility] Blood platelet mean volumeOr dered By: Renard Burgos on 12-26-2022 Platelet mean volume (Bld) [Entitic vol] 10.8 fL 6.2-12.0 [facility] Determination of erythrocyte mean corpuscular volume (MCV)Ordered By: Renard Burgos on 12-26-2022 MCV (RBC) [Entitic vol] 93.2 fL 80-94 [facility] Hematocrit Auto (Bld) [Volum e fraction]Ordered By: Renard Burgos on 12-26-2022 Hematocrit (Bld) [Volume fraction] 42.7 % 40-54 [facility] Laboratory - Hematology and Cell countsOrdered By: Renard Burgos on 12-26-2022 Erythrocyte distribution width (RBC) [Entitic vol] 42.5 fL 35.1-43.9 [facility] Erythrocyte distribution width (RBC) [Ratio] 12.5 % 11.6-14.6 [facility] Immature granulocytes/100 WBC (Bld) 0.400 % 0.0-0.9 [facility] Comment on above: IG% - Immature Granu locytes (promyelocytes, myelocytes and metamyelocytes) > 1% indicates that a LEFT SHIFT is Present. MCH (RBC) [Entitic mass] 30.6 pg 27.0-32.0 [facility] Nucleated RBC/100 WBC (Bld) [Ratio] 0 % 0-5 [facility] MCHC Auto (RBC) [Mass/Vol]Or dered By: Renard Burgos on 12-26-2022 MCHC (RBC) [Mass/Vol] 32.8 g/dL 32-36 [facility] Platelets bldOrdered By: Lyubov Burgos on 12-26-2022 Platelets (Bld) [#/Vol] 200 10*3/uL 150-450 [facility] Absolute lymphocyte countOrd ered By: Renard Burgos on 12-19-2022 Lymphocytes Auto (Unsp spec) [#/Vol] 2.24 10*3/uL 0.83-4.51 [facility] Basophil percentageOrdered B y: Renard Burgos on 12-19-2022 Basophils/100 WBC (Bld) 0.3 % 0-1 [facility] Eosinophils/100 WBC (Bld) 0.8 % 0-5 [facility] Neutrophils (Bld) [#/Vol] 5.7 10*3/uL 2.0-7.7 [facility] Neutrophils/100 WBC (Bld) 64.1 % 47-70 [facility] WBC (Bld) [#/Vol] 8.9 10*3/uL 4.4-11.0 [facility] Blood erythrocytes count (nu mber/volume)Ordered By: Renard Burgos on 12-19-2022 RBC (Bld) [#/Vol] 4.44 10*6/uL 4.6-6.2 [facility] Blood hemoglobin measurement (mass/volume)Ordered By: Renard Burgos on 12-19-2022 Hemoglobin (Bld) [Mass/Vol] 13.5 g/dL 13.0-16.5 [facility] Blood lymphocytes/100 leukoc ytesOrdered By: Renard Burgos on 12-19-2022 Lymphocytes/100 WBC (Bld) 25.1 % 19-41 [facility] Blood monocytes/100 leukocyt esOrdered By: Renard Burgos on 12-19-2022 Monocytes/100 WBC (Bld) 9.4 % 0-10 [facility] Blood platelet mean volumeOr dered By: Renard Burgos on 12-19-2022 Platelet mean volume (Bld) [Entitic vol] 11.0 fL 6.2-12.0 [facility] Determination of erythrocyte mean corpuscular volume (MCV)Ordered By: Renard Burgos on 12-19-2022 MCV (RBC) [Entitic vol] 92.8 fL 80-94 [facility] Hematocrit Auto (Bld) [Volum e fraction]Ordered By: Renard Burgos on 12-19-2022 Hematocrit (Bld) [Volume fraction] 41.2 % 40-54 [facility] - Hematology and Cell countsOrdered By: Renard Burgos on 08-21-2023 Erythrocyte distribution width (RBC) [Entitic vol] 43.2 fL 35.1-43.9 [facility] Erythrocyte distribution width (RBC) [Ratio] 12.7 % 11.6-14.6 [facility] Immature granulocytes/100 WBC (Bld) 0.300 % 0.0-0.9 [facility] Comment on above: IG% - Immature Granu locytes (promyelocytes, myelocytes and metamyelocytes) > 1% indicates that a LEFT SHIFT is Present. MCH (RBC) [Entitic mass] 30.4 pg 27.0-32.0 [facility] Nucleated RBC/100 WBC (Bld) [Ratio] 0 % 0-5 [facility] MCHC Auto (RBC) [Mass/Vol]Or dered By: Renard Burgos on 12-19-2022 MCHC (RBC) [Mass/Vol] 32.8 g/dL 32-36 [facility] Platelets bldOrdered By: Lyubov Burgos on 12-19-2022 Platelets (Bld) [#/Vol] 194 10*3/uL 150-450 [facility] Absolute lymphocyte countOrd ered By: Renard Burgos on 12-12-2022 Lymphocytes Auto (Unsp spec) [#/Vol] 2.33 10*3/uL 0.83-4.51 [facility] Basophil percentageOrdered B y: Renard Burgos on 12-12-2022 Basophils/100 WBC (Bld) 0.6 % 0-1 [facility] Eosinophils/100 WBC (Bld) 0.9 % 0-5 [facility] Neutrophils (Bld) [#/Vol] 5.8 10*3/uL 2.0-7.7 [facility] Neutrophils/100 WBC (Bld) 63.5 % 47-70 [facility] WBC (Bld) [#/Vol] 9.1 10*3/uL 4.4-11.0 [facility] Blood erythrocytes count (nu mber/volume)Ordered By: Renard Burgos on 12-12-2022 RBC (Bld) [#/Vol] 4.52 10*6/uL 4.6-6.2 [facility] Blood hemoglobin measurement (mass/volume)Ordered By: Renard Burgos on 12-12-2022 Hemoglobin (Bld) [Mass/Vol] 13.9 g/dL 13.0-16.5 [facility] Blood lymphocytes/100 leukoc ytesOrdered By: Renard Burgos on 12-12-2022 Lymphocytes/100 WBC (Bld) 25.6 % 19-41 [facility] Blood monocytes/100 leukocyt esOrdered By: Renard Burgos on 12-12-2022 Monocytes/100 WBC (Bld) 9.1 % 0-10 [facility] Blood platelet mean volumeOr dered By: Renard Burgos on 12-12-2022 Platelet mean volume (Bld) [Entitic vol] 10.9 fL 6.2-12.0 [facility] Determination of erythrocyte mean corpuscular volume (MCV)Ordered By: Renard Burgos on 12-12-2022 MCV (RBC) [Entitic vol] 94.2 fL 80-94 [facility] Hematocrit Auto (Bld) [Volum e fraction]Ordered By: Renard Burgos on 12-12-2022 Hematocrit (Bld) [Volume fraction] 42.6 % 40-54 [facility] - Hematology and Cell countsOrdered By: Renard Burgos on 12-12-2022 Erythrocyte distribution width (RBC) [Entitic vol] 44.3 fL 35.1-43.9 [facility] Erythrocyte distribution width (RBC) [Ratio] 12.8 % 11.6-14.6 [facility] Immature granulocytes/100 WBC (Bld) 0.300 % 0.0-0.9 [facility] Comment on above: IG% - Immature Granu locytes (promyelocytes, myelocytes and metamyelocytes) > 1% indicates that a LEFT SHIFT is Present. MCH (RBC) [Entitic mass] 30.8 pg 27.0-32.0 [facility] Nucleated RBC/100 WBC (Bld) [Ratio] 0 % 0-5 [facility] MCHC Auto (RBC) [Mass/Vol]Or dered By: Renard Burgos on 12-12-2022 MCHC (RBC) [Mass/Vol] 32.6 g/dL 32-36 [facility] Platelets bldOrdered By: Lyubov Burgos on 12-12-2022 Platelets (Bld) [#/Vol] 211 10*3/uL 150-450 [facility] Absolute lymphocyte countOrd ered By: Renard Burgos on 12-05-2022 Lymphocytes Auto (Unsp spec) [#/Vol] 1.94 10*3/uL 0.83-4.51 [facility] Basophil percentageOrdered B y: Renard Burgos on 12-05-2022 Basophils/100 WBC (Bld) 0.4 % 0-1 [facility] Eosinophils/100 WBC (Bld) 0.9 % 0-5 [facility] Neutrophils (Bld) [#/Vol] 4.1 10*3/uL 2.0-7.7 [facility] Neutrophils/100 WBC (Bld) 61.2 % 47-70 [facility] WBC (Bld) [#/Vol] 6.7 10*3/uL 4.4-11.0 [facility] Blood erythrocytes count (nu mber/volume)Ordered By: Renard Brugos on 12-05-2022 RBC (Bld) [#/Vol] 4.39 10*6/uL 4.6-6.2 [facility] Blood hemoglobin measurement (mass/volume)Ordered By: Renard Burgos on 12-05-2022 Hemoglobin (Bld) [Mass/Vol] 13.3 g/dL 13.0-16.5 [facility] Blood lymphocytes/100 leukoc ytesOrdered By: Renard Burgos on 12-05-2022 Lymphocytes/100 WBC (Bld) 28.8 % 19-41 [facility] Blood monocytes/100 leukocyt esOrdered By: Renard Burgos on 12-05-2022 Monocytes/100 WBC (Bld) 8.3 % 0-10 [facility] Blood platelet mean volumeOr dered By: Renard Burgos on 12-05-2022 Platelet mean volume (Bld) [Entitic vol] 10.8 fL 6.2-12.0 [facility] Determination of erythrocyte mean corpuscular volume (MCV)Ordered By: Renard Burgos on 12-05-2022 MCV (RBC) [Entitic vol] 90.7 fL 80-94 [facility] Hematocrit Auto (Bld) [Volum e fraction]Ordered By: Renard Burgos on 12-05-2022 Hematocrit (Bld) [Volume fraction] 39.8 % 40-54 [facility] - Hematology and Cell countsOrdered By: Renard Burgos on 12-05-2022 Erythrocyte distribution width (RBC) [Entitic vol] 41.8 fL 35.1-43.9 [facility] Erythrocyte distribution width (RBC) [Ratio] 12.6 % 11.6-14.6 [facility] Immature granulocytes/100 WBC (Bld) 0.400 % 0.0-0.9 [facility] Comment on above: IG% - Immature Granu locytes (promyelocytes, myelocytes and metamyelocytes) > 1% indicates that a LEFT SHIFT is Present. MCH (RBC) [Entitic mass] 30.3 pg 27.0-32.0 [facility] Nucleated RBC/100 WBC (Bld) [Ratio] 0 % 0-5 [facility] MCHC Auto (RBC) [Mass/Vol]Or dered By: Renard Burgos on 12-05-2022 MCHC (RBC) [Mass/Vol] 33.4 g/dL 32-36 [facility] Platelets bldOrdered By: Lyubov Burgos on 12-05-2022 Platelets (Bld) [#/Vol] 208 10*3/uL 150-450 [facility] Absolute lymphocyte countOrd ered By: Renard Burgos on 11-28-2022 Lymphocytes Auto (Unsp spec) [#/Vol] 2.07 10*3/uL 0.83-4.51 [facility] Basophil percentageOrdered B y: Renard Burgos on 11-28-2022 Basophils/100 WBC (Bld) 0.4 % 0-1 [facility] Eosinophils/100 WBC (Bld) 0.6 % 0-5 [facility] Neutrophils (Bld) [#/Vol] 5.1 10*3/uL 2.0-7.7 [facility] Neutrophils/100 WBC (Bld) 64.6 % 47-70 [facility] WBC (Bld) [#/Vol] 7.9 10*3/uL 4.4-11.0 [facility] Blood erythrocytes count (nu mber/volume)Ordered By: Renard Burgos on 11-28-2022 RBC (Bld) [#/Vol] 4.54 10*6/uL 4.6-6.2 [facility] Blood hemoglobin measurement (mass/volume)Ordered By: Renard Burgos on 11-28-2022 Hemoglobin (Bld) [Mass/Vol] 13.7 g/dL 13.0-16.5 [facility] Blood lymphocytes/100 leukoc ytesOrdered By: Renard Burgos on 11-28-2022 Lymphocytes/100 WBC (Bld) 26.2 % 19-41 [facility] Blood monocytes/100 leukocyt esOrdered By: Renard Burgos on 11-28-2022 Monocytes/100 WBC (Bld) 7.7 % 0-10 [facility] Blood platelet mean volumeOr dered By: Renard Burgos on 11-28-2022 Platelet mean volume (Bld) [Entitic vol] 10.6 fL 6.2-12.0 [facility] Determination of erythrocyte mean corpuscular volume (MCV)Ordered By: Renard Burgos on 11-28-2022 MCV (RBC) [Entitic vol] 93.6 fL 80-94 [facility] Hematocrit Auto (Bld) [Volum e fraction]Ordered By: Renard Burgos on 11-28-2022 Hematocrit (Bld) [Volume fraction] 42.5 % 40-54 [facility] - Hematology and Cell countsOrdered By: Renard Burgos on 11-28-2022 Erythrocyte distribution width (RBC) [Entitic vol] 43.5 fL 35.1-43.9 [facility] Erythrocyte distribution width (RBC) [Ratio] 12.7 % 11.6-14.6 [facility] Immature granulocytes/100 WBC (Bld) 0.500 % 0.0-0.9 [facility] Comment on above: IG% - Immature Granu locytes (promyelocytes, myelocytes and metamyelocytes) > 1% indicates that a LEFT SHIFT is Present. MCH (RBC) [Entitic mass] 30.2 pg 27.0-32.0 [facility] Nucleated RBC/100 WBC (Bld) [Ratio] 0 % 0-5 [facility] MCHC Auto (RBC) [Mass/Vol]Or dered By: Renard Burgos on 11-28-2022 MCHC (RBC) [Mass/Vol] 32.2 g/dL 32-36 [facility] Platelets bldOrdered By: Lyubov Burgos on 11-28-2022 Platelets (Bld) [#/Vol] 201 10*3/uL 150-450 [facility] Absolute lymphocyte countOrd ered By: Renard Burgos on 11-21-2022 Lymphocytes Auto (Unsp spec) [#/Vol] 2.32 10*3/uL 0.83-4.51 [facility] Basophil percentageOrdered B y: Renard Burgos on 11-21-2022 Basophils/100 WBC (Bld) 0.6 % 0-1 [facility] Eosinophils/100 WBC (Bld) 0.7 % 0-5 [facility] Neutrophils (Bld) [#/Vol] 5.0 10*3/uL 2.0-7.7 [facility] Neutrophils/100 WBC (Bld) 60.6 % 47-70 [facility] WBC (Bld) [#/Vol] 8.2 10*3/uL 4.4-11.0 [facility] Blood erythrocytes count (nu mber/volume)Ordered By: Renard Burgos on 11-21-2022 RBC (Bld) [#/Vol] 4.71 10*6/uL 4.6-6.2 [facility] Blood hemoglobin measurement (mass/volume)Ordered By: Renard Burgos on 11-21-2022 Hemoglobin (Bld) [Mass/Vol] 14.3 g/dL 13.0-16.5 [facility] Blood lymphocytes/100 leukoc ytesOrdered By: Renard Burgos on 11-21-2022 Lymphocytes/100 WBC (Bld) 28.2 % 19-41 [facility] Blood monocytes/100 leukocyt esOrdered By: Renard Burgos on 11-21-2022 Monocytes/100 WBC (Bld) 9.2 % 0-10 [facility] Blood platelet mean volumeOr dered By: Renard Burgos on 11-21-2022 Platelet mean volume (Bld) [Entitic vol] 10.4 fL 6.2-12.0 [facility] Determination of erythrocyte mean corpuscular volume (MCV)Ordered By: Renard Burgos on 11-21-2022 MCV (RBC) [Entitic vol] 91.9 fL 80-94 [facility] Hematocrit Auto (Bld) [Volum e fraction]Ordered By: Renard Burgos on 11-21-2022 Hematocrit (Bld) [Volume fraction] 43.3 % 40-54 [facility] - Hematology and Cell countsOrdered By: Renard Burgos on 11-21-2022 Erythrocyte distribution width (RBC) [Entitic vol] 43.1 fL 35.1-43.9 [facility] Erythrocyte distribution width (RBC) [Ratio] 12.8 % 11.6-14.6 [facility] Immature granulocytes/100 WBC (Bld) 0.700 % 0.0-0.9 [facility] Comment on above: IG% - Immature Granu locytes (promyelocytes, myelocytes and metamyelocytes) > 1% indicates that a LEFT SHIFT is Present. MCH (RBC) [Entitic mass] 30.4 pg 27.0-32.0 [facility] Nucleated RBC/100 WBC (Bld) [Ratio] 0 % 0-5 [facility] MCHC Auto (RBC) [Mass/Vol]Or dered By: Renard Burgos on 11-21-2022 MCHC (RBC) [Mass/Vol] 33.0 g/dL 32-36 [facility] Platelets bldOrdered By: Lyubov Burgos on 11-21-2022 Platelets (Bld) [#/Vol] 219 10*3/uL 150-450 [facility] Absolute lymphocyte countOrd ered By: Renard Burgos on 11-14-2022 Lymphocytes Auto (Unsp spec) [#/Vol] 1.82 10*3/uL 0.83-4.51 [facility] Basophil percentageOrdered B y: Renard Burgos on 11-14-2022 Basophils/100 WBC (Bld) 0.4 % 0-1 [facility] Chloride [Moles/Vol] 107 mmol/L 98-107 [facility] Eosinophils/100 WBC (Bld) 0.4 % 0-5 [facility] Glucose [Mass/Vol] 121 mg/dL 74-106 [facility] Comment on above: Fasting Glucose resu lt from 100 to 125 mg/dL suggests IMPAIRED HOMEOSTASIS per A.D.A. criteria. Neutrophils (Bld) [#/Vol] 4.7 10*3/uL 2.0-7.7 [facility] Neutrophils/100 WBC (Bld) 66.6 % 47-70 [facility] Potassium [Moles/Vol] 3.7 mmol/L 3.5-5.1 [facility] Sodium [Moles/Vol] 141 mmol/L 136-145 [facility] WBC (Bld) [#/Vol] 7.1 10*3/uL 4.4-11.0 [facility] Blood erythrocytes count (nu mber/volume)Ordered By: Renard Burgos on 11-14-2022 RBC (Bld) [#/Vol] 4.35 10*6/uL 4.6-6.2 [facility] Blood hemoglobin measurement (mass/volume)Ordered By: Renard Burgos on 11-14-2022 Hemoglobin (Bld) [Mass/Vol] 13.6 g/dL 13.0-16.5 [facility] Blood lymphocytes/100 leukoc ytesOrdered By: Renard Burgos on 11-14-2022 Lymphocytes/100 WBC (Bld) 25.6 % 19-41 [facility] Blood monocytes/100 leukocyt esOrdered By: Renard Burgos on 11-14-2022 Monocytes/100 WBC (Bld) 6.6 % 0-10 [facility] Blood platelet mean volumeOr dered By: Renard Burgos on 11-14-2022 Platelet mean volume (Bld) [Entitic vol] 10.9 fL 6.2-12.0 [facility] Determination of erythrocyte mean corpuscular volume (MCV)Ordered By: Renard Burgos on 11-14-2022 MCV (RBC) [Entitic vol] 93.3 fL 80-94 [facility] Hematocrit Auto (Bld) [Volum e fraction]Ordered By: Renard Burgos on 11-14-2022 Hematocrit (Bld) [Volume fraction] 40.6 % 40-54 [facility] - Chemistry and C hemistry - challengeOrdered By: Renard Burgos on 11-14-2022 CO2 [Moles/Vol] 31.0 mmol/L 21.0-32.0 [facility] Urea nitrogen/Creatinine [Mass ratio] 26.0 mg/mg 10-20 [facility] - Hematology and Cell countsOrdered By: Renard Burgos on 11-14-2022 Erythrocyte distribution width (RBC) [Entitic vol] 43.9 fL 35.1-43.9 [facility] Erythrocyte distribution width (RBC) [Ratio] 12.8 % 11.6-14.6 [facility] Immature granulocytes/100 WBC (Bld) 0.400 % 0.0-0.9 [facility] Comment on above: IG% - Immature Granu locytes (promyelocytes, myelocytes and metamyelocytes) > 1% indicates that a LEFT SHIFT is Present. MCH (RBC) [Entitic mass] 31.3 pg 27.0-32.0 [facility] Nucleated RBC/100 WBC (Bld) [Ratio] 0 % 0-5 [facility] MCHC Auto (RBC) [Mass/Vol]Or dered By: Renard Burgos on 11-14-2022 MCHC (RBC) [Mass/Vol] 33.5 g/dL 32-36 [facility] No Panel InformationOrdered By: Renard Burgos on 11-14-2022 Estimated GFR (MDRD) Amer 147 mL/min >60 [facility] Comment on above: GFR Calc Estimated GFR (MDRD) Non-Af Amer 122 mL/min >60 [facility] Comment on above: Non- GFR Calc Platelets bldOrdered By: Lyubov Burgos on 11-14-2022 Platelets (Bld) [#/Vol] 202 10*3/uL 150-450 [facility] Serum or plasma calcium gordy urement (mass/volume)Ordered By: Renard Burgos on 11-14-2022 Calcium [Mass/Vol] 8.2 mg/dL 8.5-10.1 [facility] Serum or plasma creatinine m easurement (mass/volume)Ordered By: Renard Burgos on 11-14-2022 Creatinine [Mass/Vol] 0.69 mg/dL 0.70-1.30 [facility] Comment on above: The validity of the calculated GFR & GFRAA in patients over 70 years has not been determined. Clinical correlation is essential. Serum or plasma urea nitroge n measurement (mass/volume)Ordered By: Renard Burgos on 11-14-2022 Urea nitrogen [Mass/Vol] 18 mg/dL 7-18 [facility] Thin prep Papanicolaou smear with manual screeningOrdered By: Renard Burgos on 11-14-2022 Thin prep Papanicolaou smear with manual screening 3 5-15 [facility] Absolute lymphocyte countOrd ered By: Renard Burgos on 11-07-2022 Lymphocytes Auto (Unsp spec) [#/Vol] 1.99 10*3/uL 0.83-4.51 [facility] Basophil percentageOrdered B y: Renard Burgos on 11-07-2022 Basophils/100 WBC (Bld) 0.8 % 0-1 [facility] Eosinophils/100 WBC (Bld) 0.5 % 0-5 [facility] Neutrophils (Bld) [#/Vol] 5.1 10*3/uL 2.0-7.7 [facility] Neutrophils/100 WBC (Bld) 64.0 % 47-70 [facility] WBC (Bld) [#/Vol] 8.0 10*3/uL 4.4-11.0 [facility] Blood erythrocytes count (nu mber/volume)Ordered By: Renard Burgos on 11-07-2022 RBC (Bld) [#/Vol] 4.45 10*6/uL 4.6-6.2 [facility] Blood hemoglobin measurement (mass/volume)Ordered By: Renard Burgos on 11-07-2022 Hemoglobin (Bld) [Mass/Vol] 13.7 g/dL 13.0-16.5 [facility] Blood lymphocytes/100 leukoc ytesOrdered By: Renard Burgos on 11-07-2022 Lymphocytes/100 WBC (Bld) 25.0 % 19-41 [facility] Blood monocytes/100 leukocyt esOrdered By: Renard Burgos on 11-07-2022 Monocytes/100 WBC (Bld) 9.4 % 0-10 [facility] Blood platelet mean volumeOr dered By: Renard Burgos on 11-07-2022 Platelet mean volume (Bld) [Entitic vol] 10.7 fL 6.2-12.0 [facility] Determination of erythrocyte mean corpuscular volume (MCV)Ordered By: Renard Burgos on 11-07-2022 MCV (RBC) [Entitic vol] 91.5 fL 80-94 [facility] Hematocrit Auto (Bld) [Volum e fraction]Ordered By: Renard Burgos on 11-07-2022 Hematocrit (Bld) [Volume fraction] 40.7 % 40-54 [facility] - Hematology and Cell countsOrdered By: Renard Burgos on 11-07-2022 Erythrocyte distribution width (RBC) [Entitic vol] 42.4 fL 35.1-43.9 [facility] Erythrocyte distribution width (RBC) [Ratio] 12.8 % 11.6-14.6 [facility] Immature granulocytes/100 WBC (Bld) 0.300 % 0.0-0.9 [facility] Comment on above: IG% - Immature Granu locytes (promyelocytes, myelocytes and metamyelocytes) > 1% indicates that a LEFT SHIFT is Present. MCH (RBC) [Entitic mass] 30.8 pg 27.0-32.0 [facility] Nucleated RBC/100 WBC (Bld) [Ratio] 0 % 0-5 [facility] MCHC Auto (RBC) [Mass/Vol]Or dered By: Renard Burgos on 11-07-2022 MCHC (RBC) [Mass/Vol] 33.7 g/dL 32-36 [facility] Platelets bldOrdered By: Lyubov Burgos on 11-07-2022 Platelets (Bld) [#/Vol] 220 10*3/uL 150-450 [facility] Absolute lymphocyte countOrd ered By: Renard Burgos on 10-31-2022 Lymphocytes Auto (Unsp spec) [#/Vol] 1.97 10*3/uL 0.83-4.51 [facility] Basophil percentageOrdered B y: eRnard Burgos on 10-31-2022 Basophils/100 WBC (Bld) 0.5 % 0-1 [facility] Eosinophils/100 WBC (Bld) 0.6 % 0-5 [facility] Neutrophils (Bld) [#/Vol] 6.7 10*3/uL 2.0-7.7 [facility] Neutrophils/100 WBC (Bld) 69.9 % 47-70 [facility] WBC (Bld) [#/Vol] 9.6 10*3/uL 4.4-11.0 [facility] Blood erythrocytes count (nu mber/volume)Ordered By: Renard Burgos on 10-31-2022 RBC (Bld) [#/Vol] 4.47 10*6/uL 4.6-6.2 [facility] Blood hemoglobin measurement (mass/volume)Ordered By: Renard Burgos on 10-31-2022 Hemoglobin (Bld) [Mass/Vol] 13.5 g/dL 13.0-16.5 [facility] Blood lymphocytes/100 leukoc ytesOrdered By: Renard Burgos on 10-31-2022 Lymphocytes/100 WBC (Bld) 20.5 % 19-41 [facility] Blood monocytes/100 leukocyt esOrdered By: Renard Burgos on 10-31-2022 Monocytes/100 WBC (Bld) 7.9 % 0-10 [facility] Blood platelet mean volumeOr dered By: Renard Burgos on 10-31-2022 Platelet mean volume (Bld) [Entitic vol] 11.1 fL 6.2-12.0 [facility] Determination of erythrocyte mean corpuscular volume (MCV)Ordered By: Renard Burgos on 10-31-2022 MCV (RBC) [Entitic vol] 92.4 fL 80-94 [facility] Hematocrit Auto (Bld) [Volum e fraction]Ordered By: Renard Burgos on 10-31-2022 Hematocrit (Bld) [Volume fraction] 41.3 % 40-54 [facility] - Hematology and Cell countsOrdered By: Renard Burgos on 10-31-2022 Erythrocyte distribution width (RBC) [Entitic vol] 42.9 fL 35.1-43.9 [facility] Erythrocyte distribution width (RBC) [Ratio] 12.7 % 11.6-14.6 [facility] Immature granulocytes/100 WBC (Bld) 0.600 % 0.0-0.9 [facility] Comment on above: IG% - Immature Granu locytes (promyelocytes, myelocytes and metamyelocytes) > 1% indicates that a LEFT SHIFT is Present. MCH (RBC) [Entitic mass] 30.2 pg 27.0-32.0 [facility] Nucleated RBC/100 WBC (Bld) [Ratio] 0 % 0-5 [facility] MCHC Auto (RBC) [Mass/Vol]Or dered By: Renard Burgos on 10-31-2022 MCHC (RBC) [Mass/Vol] 32.7 g/dL 32-36 [facility] Platelets bldOrdered By: [facility]oretta on 10-31-2022 Platelets (Bld) [#/Vol] 221 10*3/uL 150-450 [facility] Absolute lymphocyte countOrd ered By: Renard Burgos on 10-24-2022 Lymphocytes Auto (Unsp spec) [#/Vol] 1.96 10*3/uL 0.83-4.51 [facility] Basophil percentageOrdered B y: Renard Burgos on 10-24-2022 Basophils/100 WBC (Bld) 0.4 % 0-1 [facility] Eosinophils/100 WBC (Bld) 0.7 % 0-5 [facility] Neutrophils (Bld) [#/Vol] 4.5 10*3/uL 2.0-7.7 [facility] Neutrophils/100 WBC (Bld) 61.9 % 47-70 [facility] WBC (Bld) [#/Vol] 7.3 10*3/uL 4.4-11.0 [facility] Blood erythrocytes count (nu mber/volume)Ordered By: Renard Burgos on 10-24-2022 RBC (Bld) [#/Vol] 4.41 10*6/uL 4.6-6.2 [facility] Blood hemoglobin measurement (mass/volume)Ordered By: Renard Burgos on 10-24-2022 Hemoglobin (Bld) [Mass/Vol] 13.2 g/dL 13.0-16.5 [facility] Blood lymphocytes/100 leukoc ytesOrdered By: Renard Burgos on 10-24-2022 Lymphocytes/100 WBC (Bld) 27.0 % 19-41 [facility] Blood monocytes/100 leukocyt esOrdered By: Renard Burgos on 10-24-2022 Monocytes/100 WBC (Bld) 9.4 % 0-10 [facility] Blood platelet mean volumeOr dered By: Renard Burgos on 10-24-2022 Platelet mean volume (Bld) [Entitic vol] 10.9 fL 6.2-12.0 [facility] Determination of erythrocyte mean corpuscular volume (MCV)Ordered By: Renard Burgos on 10-24-2022 MCV (RBC) [Entitic vol] 92.1 fL 80-94 [facility] Hematocrit Auto (Bld) [Volum e fraction]Ordered By: Renard Burgos on 10-24-2022 Hematocrit (Bld) [Volume fraction] 40.6 % 40-54 [facility] Laboratory - Hematology and Cell countsOrdered By: Renard Burgos on 10-24-2022 Erythrocyte distribution width (RBC) [Entitic vol] 42.8 fL 35.1-43.9 [facility] Erythrocyte distribution width (RBC) [Ratio] 12.8 % 11.6-14.6 [facility] Immature granulocytes/100 WBC (Bld) 0.600 % 0.0-0.9 [facility] Comment on above: IG% - Immature Granu locytes (promyelocytes, myelocytes and metamyelocytes) > 1% indicates that a LEFT SHIFT is Present. MCH (RBC) [Entitic mass] 29.9 pg 27.0-32.0 [facility] Nucleated RBC/100 WBC (Bld) [Ratio] 0 % 0-5 [facility] MCHC Auto (RBC) [Mass/Vol]Or dered By: Renard Burgos on 10-24-2022 MCHC (RBC) [Mass/Vol] 32.5 g/dL 32-36 [facility] Platelets bldOrdered By: Lyubov Burgos on 10-24-2022 Platelets (Bld) [#/Vol] 213 10*3/uL 150-450 [facility] Absolute lymphocyte countOrd ered By: Renard Burgos on 10-17-2022 Lymphocytes Auto (Unsp spec) [#/Vol] 2.05 10*3/uL 0.83-4.51 [facility] Basophil percentageOrdered B y: Renard Burgos on 10-17-2022 Basophils/100 WBC (Bld) 0.4 % 0-1 [facility] Eosinophils/100 WBC (Bld) 0.5 % 0-5 [facility] Neutrophils (Bld) [#/Vol] 6.7 10*3/uL 2.0-7.7 [facility] Neutrophils/100 WBC (Bld) 70.9 % 47-70 [facility] WBC (Bld) [#/Vol] 9.4 10*3/uL 4.4-11.0 [facility] Blood erythrocytes count (nu mber/volume)Ordered By: Renard Burgos on 10-17-2022 RBC (Bld) [#/Vol] 4.33 10*6/uL 4.6-6.2 [facility] Blood hemoglobin measurement (mass/volume)Ordered By: Renard Burgos on 10-17-2022 Hemoglobin (Bld) [Mass/Vol] 13.3 g/dL 13.0-16.5 [facility] Blood lymphocytes/100 leukoc ytesOrdered By: Renard Burgos on 10-17-2022 Lymphocytes/100 WBC (Bld) 21.7 % 19-41 [facility] Blood monocytes/100 leukocyt esOrdered By: Renard Burgos on 10-17-2022 Monocytes/100 WBC (Bld) 6.1 % 0-10 [facility] Blood platelet mean volumeOr dered By: Renard Burgos on 10-17-2022 Platelet mean volume (Bld) [Entitic vol] 10.9 fL 6.2-12.0 [facility] Determination of erythrocyte mean corpuscular volume (MCV)Ordered By: Renard Burgos on 10-17-2022 MCV (RBC) [Entitic vol] 93.8 fL 80-94 [facility] Hematocrit Auto (Bld) [Volum e fraction]Ordered By: Renard Burgos on 10-17-2022 Hematocrit (Bld) [Volume fraction] 40.6 % 40-54 [facility] - Hematology and Cell countsOrdered By: Renard Burgos on 10-17-2022 Erythrocyte distribution width (RBC) [Entitic vol] 42.7 fL 35.1-43.9 [facility] Erythrocyte distribution width (RBC) [Ratio] 12.4 % 11.6-14.6 [facility] Immature granulocytes/100 WBC (Bld) 0.400 % 0.0-0.9 [facility] Comment on above: IG% - Immature Granu locytes (promyelocytes, myelocytes and metamyelocytes) > 1% indicates that a LEFT SHIFT is Present. MCH (RBC) [Entitic mass] 30.7 pg 27.0-32.0 [facility] Nucleated RBC/100 WBC (Bld) [Ratio] 0 % 0-5 [facility] MCHC Auto (RBC) [Mass/Vol]Or dered By: Renard Burgos on 10-17-2022 MCHC (RBC) [Mass/Vol] 32.8 g/dL 32-36 [facility] Platelets bldOrdered By: Lyubov Burgos on 10-17-2022 Platelets (Bld) [#/Vol] 186 10*3/uL 150-450 [facility] Absolute lymphocyte countOrd ered By: Renard Burgos on 10-10-2022 Lymphocytes Auto (Unsp spec) [#/Vol] 2.21 10*3/uL 0.83-4.51 [facility] Basophil percentageOrdered B y: Renard Burgos on 10-10-2022 Basophils/100 WBC (Bld) 0.6 % 0-1 [facility] Eosinophils/100 WBC (Bld) 0.6 % 0-5 [facility] Neutrophils (Bld) [#/Vol] 4.7 10*3/uL 2.0-7.7 [facility] Neutrophils/100 WBC (Bld) 59.6 % 47-70 [facility] WBC (Bld) [#/Vol] 7.9 10*3/uL 4.4-11.0 [facility] Blood erythrocytes count (nu mber/volume)Ordered By: Renard Burgos on 10-10-2022 RBC (Bld) [#/Vol] 4.78 10*6/uL 4.6-6.2 [facility] Blood hemoglobin measurement (mass/volume)Ordered By: Renard Burgos on 10-10-2022 Hemoglobin (Bld) [Mass/Vol] 14.4 g/dL 13.0-16.5 [facility] Blood lymphocytes/100 leukoc ytesOrdered By: Renard Burgos on 10-10-2022 Lymphocytes/100 WBC (Bld) 28.0 % 19-41 [facility] Blood monocytes/100 leukocyt esOrdered By: Renard Burgos on 10-10-2022 Monocytes/100 WBC (Bld) 10.8 % 0-10 [facility] Blood platelet mean volumeOr dered By: Renard Burgos on 10-10-2022 Platelet mean volume (Bld) [Entitic vol] 10.7 fL 6.2-12.0 [facility] Determination of erythrocyte mean corpuscular volume (MCV)Ordered By: Renard Burgos on 10-10-2022 MCV (RBC) [Entitic vol] 94.8 fL 80-94 [facility] Hematocrit Auto (Bld) [Volum e fraction]Ordered By: Renard Burgos on 10-10-2022 Hematocrit (Bld) [Volume fraction] 45.3 % 40-54 [facility] - Hematology and Cell countsOrdered By: Renard Burgos on 10-10-2022 Erythrocyte distribution width (RBC) [Entitic vol] 43.8 fL 35.1-43.9 [facility] Erythrocyte distribution width (RBC) [Ratio] 12.6 % 11.6-14.6 [facility] Immature granulocytes/100 WBC (Bld) 0.400 % 0.0-0.9 [facility] Comment on above: IG% - Immature Granu locytes (promyelocytes, myelocytes and metamyelocytes) > 1% indicates that a LEFT SHIFT is Present. MCH (RBC) [Entitic mass] 30.1 pg 27.0-32.0 [facility] Nucleated RBC/100 WBC (Bld) [Ratio] 0 % 0-5 [facility] MCHC Auto (RBC) [Mass/Vol]Or dered By: Renard Burgos on 10-10-2022 MCHC (RBC) [Mass/Vol] 31.8 g/dL 32-36 [facility] Platelets bldOrdered By: Lyubov Burgos on 10-10-2022 Platelets (Bld) [#/Vol] 198 10*3/uL 150-450 [facility] Absolute lymphocyte countOrd ered By: Renard Burgos on 10-03-2022 Lymphocytes Auto (Unsp spec) [#/Vol] 2.00 10*3/uL 0.83-4.51 [facility] Basophil percentageOrdered B y: Renard Burgos on 10-03-2022 Basophils/100 WBC (Bld) 0.6 % 0-1 [facility] Bilirubin [Mass/Vol] 0.30 mg/dL 0.20-1.00 [facility] Comment on above: For patients on eltr ombopag therapy, use of Dimension [place] TBIL is not recommended. Chloride [Moles/Vol] 109 mmol/L 98-107 [facility] Cholesterol [Mass/Vol] 129 mg/dL <200 [facility] Comment on above: <200 mg/dL Desirable 200-240 mg/dL Borderline >240 mg/dL High Risk Eosinophils/100 WBC (Bld) 0.8 % 0-5 [facility] Glucose [Mass/Vol] 82 mg/dL 74-106 [facility] Neutrophils (Bld) [#/Vol] 5.1 10*3/uL 2.0-7.7 [facility] Neutrophils/100 WBC (Bld) 63.2 % 47-70 [facility] Potassium [Moles/Vol] 3.9 mmol/L 3.5-5.1 [facility] Protein [Mass/Vol] 6.1 g/dL 6.4-8.2 [facility] Sodium [Moles/Vol] 140 mmol/L 136-145 [facility] Triglyceride [Mass/Vol] 209 mg/dL <199 [facility] Comment on above: The drugs N-Acetylcy steine and Metamizole may falsely depress this assay.Serum Triglycerides Reference Interval Normal <150 mg/dL Borderline high 150 - 199 mg/dL High 200 - 499 mg/dL Very High > or = 500 mg/dL WBC (Bld) [#/Vol] 8.0 10*3/uL 4.4-11.0 [facility] Blood erythrocytes count (nu mber/volume)Ordered By: Renard Burgos on 10-03-2022 RBC (Bld) [#/Vol] 4.58 10*6/uL 4.6-6.2 [facility] Blood hemoglobin measurement (mass/volume)Ordered By: Renard Burgos on 10-03-2022 Hemoglobin (Bld) [Mass/Vol] 13.9 g/dL 13.0-16.5 [facility] Blood lymphocytes/100 leukoc ytesOrdered By: Renard Burgos on 10-03-2022 Lymphocytes/100 WBC (Bld) 25.1 % 19-41 [facility] Blood monocytes/100 leukocyt esOrdered By: Renard Burgos on 10-03-2022 Monocytes/100 WBC (Bld) 10.0 % 0-10 [facility] Blood platelet mean volumeOr dered By: Renard Burgos on 10-03-2022 Platelet mean volume (Bld) [Entitic vol] 11.1 fL 6.2-12.0 [facility] Determination of erythrocyte mean corpuscular volume (MCV)Ordered By: Renard Burgos on 10-03-2022 MCV (RBC) [Entitic vol] 93.9 fL 80-94 [facility] Hematocrit Auto (Bld) [Volum e fraction]Ordered By: Renard Burgos on 10-03-2022 Hematocrit (Bld) [Volume fraction] 43.0 % 40-54 [facility] - Chemistry and C hemistry - challengeOrdered By: Renard Burgos on 10-03-2022 ALP [Catalytic activity/Vol] 98 U/L 45-117 [facility] ALT [Catalytic activity/Vol] 19 U/L 16-61 [facility] CO2 [Moles/Vol] 31.0 mmol/L 21.0-32.0 [facility] Globulin (S) [Mass/Vol] 3.1 g/dL 2.2-4.2 [facility] Urea nitrogen/Creatinine [Mass ratio] 25.6 mg/mg 10-20 [facility] - Hematology and Cell countsOrdered By: Renard Burgos on 10-03-2022 Erythrocyte distribution width (RBC) [Entitic vol] 43.8 fL 35.1-43.9 [facility] Erythrocyte distribution width (RBC) [Ratio] 12.7 % 11.6-14.6 [facility] Immature granulocytes/100 WBC (Bld) 0.300 % 0.0-0.9 [facility] Comment on above: IG% - Immature Granu locytes (promyelocytes, myelocytes and metamyelocytes) > 1% indicates that a LEFT SHIFT is Present. MCH (RBC) [Entitic mass] 30.3 pg 27.0-32.0 [facility] Nucleated RBC/100 WBC (Bld) [Ratio] 0 % 0-5 [facility] MCHC Auto (RBC) [Mass/Vol]Or dered By: Renard Burgos on 10-03-2022 MCHC (RBC) [Mass/Vol] 32.3 g/dL 32-36 [facility] No Panel InformationOrdered By: Renard Burgos on 10-03-2022 Estimated GFR (MDRD) Amer 165 mL/min >60 [facility] Comment on above: GFR Calc Estimated GFR (MDRD) Non-Af Amer 137 mL/min >60 [facility] Comment on above: Non- GFR Calc Platelets bldOrdered By: Lyubov Burgos on 10-03-2022 Platelets (Bld) [#/Vol] 204 10*3/uL 150-450 [facility] Serum or plasma albumin gordy urement (mass/volume)Ordered By: Renard Burgos on 10-03-2022 Albumin [Mass/Vol] 3.0 g/dL 3.2-5.0 [facility] Serum or plasma albumin/glob ulin mass ratioOrdered By: Renard Burgos on 10-03-2022 Albumin/Globulin [Mass ratio] 1.0 {ratio} 0.9-2.4 [facility] Serum or plasma calcium gordy urement (mass/volume)Ordered By: Renard Burgos on 10-03-2022 Calcium [Mass/Vol] 8.4 mg/dL 8.5-10.1 [facility] Serum or plasma cholesterol in HDL measurement (mass/volume)Ordered By: Renard Burgos on 10-03-2022 Cholesterol in HDL [Mass/Vol] 29 mg/dL >40 [facility] Comment on above: The drugs N-Acetylcy steine and Metamizole may falsely depress this assay. Reference Range HDL <40 mg/dL Low HDL Cholesterol HDL >or= 60 mg/dL High HDL Cholesterol Serum or plasma cholesterol in VLDL measurement (mass/volume)Ordered By: Renard Burgos on 10-03-2022 Cholesterol in VLDL [Mass/Vol] 42 mg/dL 5-40 [facility] Serum or plasma creatinine m easurement (mass/volume)Ordered By: Renard Burgos on 10-03-2022 Creatinine [Mass/Vol] 0.63 mg/dL 0.70-1.30 [facility] Comment on above: The validity of the calculated GFR & GFRAA in patients over 70 years has not been determined. Clinical correlation is essential. Serum or plasma low density lipoprotein (LDL) cholesterol measurement (mass/volume)Ordered By: Renard Burgos on 10-03-2022 Cholesterol in LDL [Mass/Vol] 58 mg/dL 0-130 [facility] Serum or plasma urea nitroge n measurement (mass/volume)Ordered By: Renard Burgos on 10-03-2022 Urea nitrogen [Mass/Vol] 16 mg/dL 7-18 [facility] Thin prep Papanicolaou smear with manual screeningOrdered By: Renard Burgos on 10-03-2022 Thin prep Papanicolaou smear with manual screening 13 U/L 15-37 [facility] Thin prep Papanicolaou smear with manual screening 0 5-15 [facility] Absolute lymphocyte countOrd ered By: Renard Burgos on 09-19-2022 Lymphocytes Auto (Unsp spec) [#/Vol] 1.59 10*3/uL 0.83-4.51 [facility] Basophil percentageOrdered B y: Renard Burgos on 09-19-2022 Basophils/100 WBC (Bld) 0.5 % 0-1 [facility] Eosinophils/100 WBC (Bld) 0.3 % 0-5 [facility] Neutrophils (Bld) [#/Vol] 7.4 10*3/uL 2.0-7.7 [facility] Neutrophils/100 WBC (Bld) 75.0 % 47-70 [facility] WBC (Bld) [#/Vol] 9.9 10*3/uL 4.4-11.0 [facility] Blood erythrocytes count (nu mber/volume)Ordered By: Renard Burgos on 09-19-2022 RBC (Bld) [#/Vol] 4.46 10*6/uL 4.6-6.2 [facility] Blood hemoglobin measurement (mass/volume)Ordered By: Renard Burgos on 09-19-2022 Hemoglobin (Bld) [Mass/Vol] 13.5 g/dL 13.0-16.5 [facility] Blood lymphocytes/100 leukoc ytesOrdered By: Renard Burgos on 09-19-2022 Lymphocytes/100 WBC (Bld) 16.1 % 19-41 [facility] Blood monocytes/100 leukocyt esOrdered By: Renard Burgos on 09-19-2022 Monocytes/100 WBC (Bld) 7.6 % 0-10 [facility] Blood platelet mean volumeOr dered By: Renard Burgos on 09-19-2022 Platelet mean volume (Bld) [Entitic vol] 10.8 fL 6.2-12.0 [facility] Determination of erythrocyte mean corpuscular volume (MCV)Ordered By: Renard Burgos on 09-19-2022 MCV (RBC) [Entitic vol] 92.2 fL 80-94 [facility] Hematocrit Auto (Bld) [Volum e fraction]Ordered By: Renard Burgos on 09-19-2022 Hematocrit (Bld) [Volume fraction] 41.1 % 40-54 [facility] - Hematology and Cell countsOrdered By: Renard Burgos on 09-19-2022 Erythrocyte distribution width (RBC) [Entitic vol] 41.2 fL 35.1-43.9 [facility] Erythrocyte distribution width (RBC) [Ratio] 12.3 % 11.6-14.6 [facility] Immature granulocytes/100 WBC (Bld) 0.500 % 0.0-0.9 [facility] Comment on above: IG% - Immature Granu locytes (promyelocytes, myelocytes and metamyelocytes) > 1% indicates that a LEFT SHIFT is Present. MCH (RBC) [Entitic mass] 30.3 pg 27.0-32.0 [facility] Nucleated RBC/100 WBC (Bld) [Ratio] 0 % 0-5 [facility] MCHC Auto (RBC) [Mass/Vol]Or dered By: Renard Burgos on 09-19-2022 MCHC (RBC) [Mass/Vol] 32.8 g/dL 32-36 [facility] Platelets bldOrdered By: Pet lizy Loretta on 09-19-2022 Platelets (Bld) [#/Vol] 245 10*3/uL 150-450 [facility] Absolute lymphocyte countOrd ered By: Renard Burgos on 09-12-2022 Lymphocytes Auto (Unsp spec) [#/Vol] 2.11 10*3/uL 0.83-4.51 [facility] Basophil percentageOrdered B y: Renard Burgos on 09-12-2022 Basophils/100 WBC (Bld) 0.5 % 0-1 [facility] Eosinophils/100 WBC (Bld) 0.7 % 0-5 [facility] Neutrophils (Bld) [#/Vol] 4.7 10*3/uL 2.0-7.7 [facility] Neutrophils/100 WBC (Bld) 63.6 % 47-70 [facility] WBC (Bld) [#/Vol] 7.3 10*3/uL 4.4-11.0 [facility] Blood erythrocytes count (nu mber/volume)Ordered By: Renard Burgos on 09-12-2022 RBC (Bld) [#/Vol] 4.40 10*6/uL 4.6-6.2 [facility] Blood hemoglobin measurement (mass/volume)Ordered By: Renard Burgos on 09-12-2022 Hemoglobin (Bld) [Mass/Vol] 13.5 g/dL 13.0-16.5 [facility] Blood lymphocytes/100 leukoc ytesOrdered By: Renard Burgos on 09-12-2022 Lymphocytes/100 WBC (Bld) 28.8 % 19-41 [facility] Blood monocytes/100 leukocyt esOrdered By: Renard Burgos on 09-12-2022 Monocytes/100 WBC (Bld) 6.1 % 0-10 [facility] Blood platelet mean volumeOr dered By: Renard Burgos on 09-12-2022 Platelet mean volume (Bld) [Entitic vol] 10.7 fL 6.2-12.0 [facility] Determination of erythrocyte mean corpuscular volume (MCV)Ordered By: Renard Burgos on 09-12-2022 MCV (RBC) [Entitic vol] 91.4 fL 80-94 [facility] Hematocrit Auto (Bld) [Volum e fraction]Ordered By: Renard Burgos on 09-12-2022 Hematocrit (Bld) [Volume fraction] 40.2 % 40-54 [facility] - Hematology and Cell countsOrdered By: Renard Burgos on 09-12-2022 Erythrocyte distribution width (RBC) [Entitic vol] 41.3 fL 35.1-43.9 [facility] Erythrocyte distribution width (RBC) [Ratio] 12.5 % 11.6-14.6 [facility] Immature granulocytes/100 WBC (Bld) 0.300 % 0.0-0.9 [facility] Comment on above: IG% - Immature Granu locytes (promyelocytes, myelocytes and metamyelocytes) > 1% indicates that a LEFT SHIFT is Present. MCH (RBC) [Entitic mass] 30.7 pg 27.0-32.0 [facility] Nucleated RBC/100 WBC (Bld) [Ratio] 0 % 0-5 [facility] MCHC Auto (RBC) [Mass/Vol]Or dered By: Renard Burgos on 09-12-2022 MCHC (RBC) [Mass/Vol] 33.6 g/dL 32-36 [facility] Platelets bldOrdered By: Lyubov Burgos on 09-12-2022 Platelets (Bld) [#/Vol] 197 10*3/uL 150-450 [facility] Absolute lymphocyte countOrd ered By: Renard Burgos on 09-05-2022 Lymphocytes Auto (Unsp spec) [#/Vol] 1.94 10*3/uL 0.83-4.51 [facility] Basophil percentageOrdered B y: Renard Burgos on 09-05-2022 Basophils/100 WBC (Bld) 0.5 % 0-1 [facility] Cholesterol [Mass/Vol] 136 mg/dL <200 [facility] Comment on above: <200 mg/dL Desirable 200-240 mg/dL Borderline >240 mg/dL High Risk Eosinophils/100 WBC (Bld) 0.4 % 0-5 [facility] Neutrophils (Bld) [#/Vol] 5.4 10*3/uL 2.0-7.7 [facility] Neutrophils/100 WBC (Bld) 67.5 % 47-70 [facility] Triglyceride [Mass/Vol] 304 mg/dL <199 [facility] Comment on above: The drugs N-Acetylcy steine and Metamizole may falsely depress this assay.Serum Triglycerides Reference Interval Normal <150 mg/dL Borderline high 150 - 199 mg/dL High 200 - 499 mg/dL Very High > or = 500 mg/dL WBC (Bld) [#/Vol] 7.9 10*3/uL 4.4-11.0 [facility] Blood erythrocytes count (nu mber/volume)Ordered By: Renard Burgos on 09-05-2022 RBC (Bld) [#/Vol] 4.28 10*6/uL 4.6-6.2 [facility] Blood hemoglobin measurement (mass/volume)Ordered By: Renard Burgos on 09-05-2022 Hemoglobin (Bld) [Mass/Vol] 12.9 g/dL 13.0-16.5 [facility] Blood lymphocytes/100 leukoc ytesOrdered By: Renard Burgos on 09-05-2022 Lymphocytes/100 WBC (Bld) 24.5 % 19-41 [facility] Blood monocytes/100 leukocyt esOrdered By: Renard Burgos on 09-05-2022 Monocytes/100 WBC (Bld) 6.6 % 0-10 [facility] Blood platelet mean volumeOr dered By: Renard Burgos on 09-05-2022 Platelet mean volume (Bld) [Entitic vol] 10.7 fL 6.2-12.0 [facility] Determination of erythrocyte mean corpuscular volume (MCV)Ordered By: Renard Burgos on 09-05-2022 MCV (RBC) [Entitic vol] 91.4 fL 80-94 [facility] Hematocrit Auto (Bld) [Volum e fraction]Ordered By: Renard Burgos on 09-05-2022 Hematocrit (Bld) [Volume fraction] 39.1 % 40-54 [facility] - Hematology and Cell countsOrdered By: Renard Burgos on 09-05-2022 Erythrocyte distribution width (RBC) [Entitic vol] 41.5 fL 35.1-43.9 [facility] Erythrocyte distribution width (RBC) [Ratio] 12.6 % 11.6-14.6 [facility] Immature granulocytes/100 WBC (Bld) 0.500 % 0.0-0.9 [facility] Comment on above: IG% - Immature Granu locytes (promyelocytes, myelocytes and metamyelocytes) > 1% indicates that a LEFT SHIFT is Present. MCH (RBC) [Entitic mass] 30.1 pg 27.0-32.0 [facility] Nucleated RBC/100 WBC (Bld) [Ratio] 0 % 0-5 [facility] MCHC Auto (RBC) [Mass/Vol]Or dered By: Renard Burgos on 09-05-2022 MCHC (RBC) [Mass/Vol] 33.0 g/dL 32-36 [facility] Platelets bldOrdered By: Lyubov Burgos on 09-05-2022 Platelets (Bld) [#/Vol] 200 10*3/uL 150-450 [facility] Serum or plasma cholesterol in HDL measurement (mass/volume)Ordered By: Renard Burgos on 09-05-2022 Cholesterol in HDL [Mass/Vol] 24 mg/dL >40 [facility] Comment on above: The drugs N-Acetylcy steine and Metamizole may falsely depress this assay. Reference Range HDL <40 mg/dL Low HDL Cholesterol HDL >or= 60 mg/dL High HDL Cholesterol Serum or plasma cholesterol in VLDL measurement (mass/volume)Ordered By: Renard Burgos on 09-05-2022 Cholesterol in VLDL [Mass/Vol] 61 mg/dL 5-40 [facility] Serum or plasma low density lipoprotein (LDL) cholesterol measurement (mass/volume)Ordered By: Renard Burgos on 09-05-2022 Cholesterol in LDL [Mass/Vol] 51 mg/dL 0-130 [facility] Absolute lymphocyte countOrd ered By: Renard Burgos on 08-29-2022 Lymphocytes Auto (Unsp spec) [#/Vol] 1.91 10*3/uL 0.83-4.51 [facility] Basophil percentageOrdered B y: Renard Burgos on 08-29-2022 Basophils/100 WBC (Bld) 0.4 % 0-1 [facility] Eosinophils/100 WBC (Bld) 0.4 % 0-5 [facility] Neutrophils (Bld) [#/Vol] 4.8 10*3/uL 2.0-7.7 [facility] Neutrophils/100 WBC (Bld) 66.0 % 47-70 [facility] WBC (Bld) [#/Vol] 7.3 10*3/uL 4.4-11.0 [facility] Blood erythrocytes count (nu mber/volume)Ordered By: Renard Burgos on 08-29-2022 RBC (Bld) [#/Vol] 4.43 10*6/uL 4.6-6.2 [facility] Blood hemoglobin measurement (mass/volume)Ordered By: Renard Burgos on 08-29-2022 Hemoglobin (Bld) [Mass/Vol] 13.6 g/dL 13.0-16.5 [facility] Blood lymphocytes/100 leukoc ytesOrdered By: Renard Burgos on 08-29-2022 Lymphocytes/100 WBC (Bld) 26.2 % 19-41 [facility] Blood monocytes/100 leukocyt esOrdered By: Renard Burgos on 08-29-2022 Monocytes/100 WBC (Bld) 6.6 % 0-10 [facility] Blood platelet mean volumeOr dered By: Renard Burgos on 08-29-2022 Platelet mean volume (Bld) [Entitic vol] 11.0 fL 6.2-12.0 [facility] Determination of erythrocyte mean corpuscular volume (MCV)Ordered By: Renard Burgos on 08-29-2022 MCV (RBC) [Entitic vol] 92.1 fL 80-94 [facility] Hematocrit Auto (Bld) [Volum e fraction]Ordered By: Renard Burgos on 08-29-2022 Hematocrit (Bld) [Volume fraction] 40.8 % 40-54 [facility] - Hematology and Cell countsOrdered By: Renard Burgos on 08-29-2022 Erythrocyte distribution width (RBC) [Entitic vol] 42.0 fL 35.1-43.9 [facility] Erythrocyte distribution width (RBC) [Ratio] 12.4 % 11.6-14.6 [facility] Immature granulocytes/100 WBC (Bld) 0.400 % 0.0-0.9 [facility] Comment on above: IG% - Immature Granu locytes (promyelocytes, myelocytes and metamyelocytes) > 1% indicates that a LEFT SHIFT is Present. MCH (RBC) [Entitic mass] 30.7 pg 27.0-32.0 [facility] Nucleated RBC/100 WBC (Bld) [Ratio] 0 % 0-5 [facility] MCHC Auto (RBC) [Mass/Vol]Or dered By: Renard Burgos on 08-29-2022 MCHC (RBC) [Mass/Vol] 33.3 g/dL 32-36 [facility] Platelets bldOrdered By: Lyubov Burgos on 08-29-2022 Platelets (Bld) [#/Vol] 195 10*3/uL 150-450 [facility] Absolute lymphocyte countOrd ered By: Renard Burgos on 08-22-2022 Lymphocytes Auto (Unsp spec) [#/Vol] 1.86 10*3/uL 0.83-4.51 [facility] Basophil percentageOrdered B y: Renard Burgos on 08-22-2022 Basophils/100 WBC (Bld) 0.4 % 0-1 [facility] Eosinophils/100 WBC (Bld) 0.4 % 0-5 [facility] Neutrophils (Bld) [#/Vol] 6.5 10*3/uL 2.0-7.7 [facility] Neutrophils/100 WBC (Bld) 70.5 % 47-70 [facility] WBC (Bld) [#/Vol] 9.3 10*3/uL 4.4-11.0 [facility] Blood erythrocytes count (nu mber/volume)Ordered By: Renard Burgos on 08-22-2022 RBC (Bld) [#/Vol] 4.55 10*6/uL 4.6-6.2 [facility] Blood hemoglobin measurement (mass/volume)Ordered By: Renard Burgos on 08-22-2022 Hemoglobin (Bld) [Mass/Vol] 14.1 g/dL 13.0-16.5 [facility] Blood lymphocytes/100 leukoc ytesOrdered By: Renard Burgos on 08-22-2022 Lymphocytes/100 WBC (Bld) 20.1 % 19-41 [facility] Blood monocytes/100 leukocyt esOrdered By: Renard Burgos on 08-22-2022 Monocytes/100 WBC (Bld) 8.3 % 0-10 [facility] Blood platelet mean volumeOr dered By: Renard Burgos on 08-22-2022 Platelet mean volume (Bld) [Entitic vol] 10.8 fL 6.2-12.0 [facility] Determination of erythrocyte mean corpuscular volume (MCV)Ordered By: Renard Burgos on 08-22-2022 MCV (RBC) [Entitic vol] 91.9 fL 80-94 [facility] Hematocrit Auto (Bld) [Volum e fraction]Ordered By: Renard Burgos on 08-22-2022 Hematocrit (Bld) [Volume fraction] 41.8 % 40-54 [facility] - Hematology and Cell countsOrdered By: Renard Burgos on 08-22-2022 Erythrocyte distribution width (RBC) [Entitic vol] 42.5 fL 35.1-43.9 [facility] Erythrocyte distribution width (RBC) [Ratio] 12.6 % 11.6-14.6 [facility] Immature granulocytes/100 WBC (Bld) 0.300 % 0.0-0.9 [facility] Comment on above: IG% - Immature Granu locytes (promyelocytes, myelocytes and metamyelocytes) > 1% indicates that a LEFT SHIFT is Present. MCH (RBC) [Entitic mass] 31.0 pg 27.0-32.0 [facility] Nucleated RBC/100 WBC (Bld) [Ratio] 0 % 0-5 [facility] MCHC Auto (RBC) [Mass/Vol]Or dered By: Renard Burgos on 08-22-2022 MCHC (RBC) [Mass/Vol] 33.7 g/dL 32-36 [facility] Platelets bldOrdered By: Lyubov Burgos on 08-22-2022 Platelets (Bld) [#/Vol] 197 10*3/uL 150-450 [facility] Absolute lymphocyte countOrd ered By: Renard Burgos on 08-15-2022 Lymphocytes Auto (Unsp spec) [#/Vol] 1.88 10*3/uL 0.83-4.51 [facility] Basophil percentageOrdered B y: Renard Burgos on 08-15-2022 Basophils/100 WBC (Bld) 0.5 % 0-1 [facility] Eosinophils/100 WBC (Bld) 0.5 % 0-5 [facility] Neutrophils (Bld) [#/Vol] 5.1 10*3/uL 2.0-7.7 [facility] Neutrophils/100 WBC (Bld) 65.0 % 47-70 [facility] WBC (Bld) [#/Vol] 7.9 10*3/uL 4.4-11.0 [facility] Blood erythrocytes count (nu mber/volume)Ordered By: Renard Burgos on 08-15-2022 RBC (Bld) [#/Vol] 4.48 10*6/uL 4.6-6.2 [facility] Blood hemoglobin measurement (mass/volume)Ordered By: Renard Burgos on 08-15-2022 Hemoglobin (Bld) [Mass/Vol] 13.7 g/dL 13.0-16.5 [facility] Blood lymphocytes/100 leukoc ytesOrdered By: Renard Burgos on 08-15-2022 Lymphocytes/100 WBC (Bld) 23.9 % 19-41 [facility] Blood monocytes/100 leukocyt esOrdered By: Renard Burgos on 08-15-2022 Monocytes/100 WBC (Bld) 9.8 % 0-10 [facility] Blood platelet mean volumeOr dered By: Renard Burgos on 08-15-2022 Platelet mean volume (Bld) [Entitic vol] 10.7 fL 6.2-12.0 [facility] Determination of erythrocyte mean corpuscular volume (MCV)Ordered By: Renard Burgos on 08-15-2022 MCV (RBC) [Entitic vol] 91.1 fL 80-94 [facility] Hematocrit Auto (Bld) [Volum e fraction]Ordered By: Renard Burgos on 08-15-2022 Hematocrit (Bld) [Volume fraction] 40.8 % 40-54 [facility] - Hematology and Cell countsOrdered By: Renard Burgos on 08-15-2022 Erythrocyte distribution width (RBC) [Entitic vol] 41.0 fL 35.1-43.9 [facility] Erythrocyte distribution width (RBC) [Ratio] 12.4 % 11.6-14.6 [facility] Immature granulocytes/100 WBC (Bld) 0.300 % 0.0-0.9 [facility] Comment on above: IG% - Immature Granu locytes (promyelocytes, myelocytes and metamyelocytes) > 1% indicates that a LEFT SHIFT is Present. MCH (RBC) [Entitic mass] 30.6 pg 27.0-32.0 [facility] Nucleated RBC/100 WBC (Bld) [Ratio] 0 % 0-5 [facility] MCHC Auto (RBC) [Mass/Vol]Or dered By: Renard Burgos on 08-15-2022 MCHC (RBC) [Mass/Vol] 33.6 g/dL 32-36 [facility] Platelets bldOrdered By: Lyubov Burgos on 08-15-2022 Platelets (Bld) [#/Vol] 212 10*3/uL 150-450 [facility] Absolute lymphocyte countOrd ered By: Renard Burgos on 08-08-2022 Lymphocytes Auto (Unsp spec) [#/Vol] 1.96 10*3/uL 0.83-4.51 [facility] Basophil percentageOrdered B y: Renard Burgos on 08-08-2022 Basophils/100 WBC (Bld) 0.5 % 0-1 [facility] Eosinophils/100 WBC (Bld) 0.5 % 0-5 [facility] Neutrophils (Bld) [#/Vol] 4.7 10*3/uL 2.0-7.7 [facility] Neutrophils/100 WBC (Bld) 64.1 % 47-70 [facility] WBC (Bld) [#/Vol] 7.4 10*3/uL 4.4-11.0 [facility] Blood erythrocytes count (nu mber/volume)Ordered By: Renard Burgos on 08-08-2022 RBC (Bld) [#/Vol] 4.44 10*6/uL 4.6-6.2 [facility] Blood hemoglobin measurement (mass/volume)Ordered By: Renard Burgos on 08-08-2022 Hemoglobin (Bld) [Mass/Vol] 13.6 g/dL 13.0-16.5 [facility] Blood lymphocytes/100 leukoc ytesOrdered By: Renard Burgos on 08-08-2022 Lymphocytes/100 WBC (Bld) 26.5 % 19-41 [facility] Blood monocytes/100 leukocyt esOrdered By: Renard Burgos on 08-08-2022 Monocytes/100 WBC (Bld) 8.1 % 0-10 [facility] Blood platelet mean volumeOr dered By: Renard Burgos on 08-08-2022 Platelet mean volume (Bld) [Entitic vol] 10.8 fL 6.2-12.0 [facility] Determination of erythrocyte mean corpuscular volume (MCV)Ordered By: Renard Burgos on 08-08-2022 MCV (RBC) [Entitic vol] 91.7 fL 80-94 [facility] Hematocrit Auto (Bld) [Volum e fraction]Ordered By: Renard Burgos on 08-08-2022 Hematocrit (Bld) [Volume fraction] 40.7 % 40-54 [facility] - Hematology and Cell countsOrdered By: Renard Burgos on 08-08-2022 Erythrocyte distribution width (RBC) [Entitic vol] 42.7 fL 35.1-43.9 [facility] Erythrocyte distribution width (RBC) [Ratio] 12.6 % 11.6-14.6 [facility] Immature granulocytes/100 WBC (Bld) 0.300 % 0.0-0.9 [facility] Comment on above: IG% - Immature Granu locytes (promyelocytes, myelocytes and metamyelocytes) > 1% indicates that a LEFT SHIFT is Present. MCH (RBC) [Entitic mass] 30.6 pg 27.0-32.0 [facility] Nucleated RBC/100 WBC (Bld) [Ratio] 0 % 0-5 [facility] MCHC Auto (RBC) [Mass/Vol]Or dered By: Renard Burgos on 08-08-2022 MCHC (RBC) [Mass/Vol] 33.4 g/dL 32-36 [facility] Platelets bldOrdered By: Lyubov Burgos on 08-08-2022 Platelets (Bld) [#/Vol] 187 10*3/uL 150-450 [facility] Absolute lymphocyte countOrd ered By: Renard Burgos on 08-01-2022 Lymphocytes Auto (Unsp spec) [#/Vol] 2.09 10*3/uL 0.83-4.51 [facility] Basophil percentageOrdered B y: Renard Burgos on 08-01-2022 Basophils/100 WBC (Bld) 0.4 % 0-1 [facility] Eosinophils/100 WBC (Bld) 0.4 % 0-5 [facility] Neutrophils (Bld) [#/Vol] 6.6 10*3/uL 2.0-7.7 [facility] Neutrophils/100 WBC (Bld) 69.1 % 47-70 [facility] WBC (Bld) [#/Vol] 9.5 10*3/uL 4.4-11.0 [facility] Blood erythrocytes count (nu mber/volume)Ordered By: Renard Burgos on 08-01-2022 RBC (Bld) [#/Vol] 4.48 10*6/uL 4.6-6.2 [facility] Blood hemoglobin measurement (mass/volume)Ordered By: Renard Burgos on 08-01-2022 Hemoglobin (Bld) [Mass/Vol] 13.9 g/dL 13.0-16.5 [facility] Blood lymphocytes/100 leukoc ytesOrdered By: Renard Burgos on 08-01-2022 Lymphocytes/100 WBC (Bld) 21.9 % 19-41 [facility] Blood monocytes/100 leukocyt esOrdered By: Renard Burgos on 08-01-2022 Monocytes/100 WBC (Bld) 7.9 % 0-10 [facility] Blood platelet mean volumeOr dered By: Renard Burgos on 08-01-2022 Platelet mean volume (Bld) [Entitic vol] 11.0 fL 6.2-12.0 [facility] Determination of erythrocyte mean corpuscular volume (MCV)Ordered By: Renard Burgos on 08-01-2022 MCV (RBC) [Entitic vol] 91.5 fL 80-94 [facility] Hematocrit Auto (Bld) [Volum e fraction]Ordered By: Renard Burgos on 08-01-2022 Hematocrit (Bld) [Volume fraction] 41.0 % 40-54 [facility] - Hematology and Cell countsOrdered By: Renard Burgos on 08-01-2022 Erythrocyte distribution width (RBC) [Entitic vol] 41.6 fL 35.1-43.9 [facility] Erythrocyte distribution width (RBC) [Ratio] 12.5 % 11.6-14.6 [facility] Immature granulocytes/100 WBC (Bld) 0.300 % 0.0-0.9 [facility] Comment on above: IG% - Immature Granu locytes (promyelocytes, myelocytes and metamyelocytes) > 1% indicates that a LEFT SHIFT is Present. MCH (RBC) [Entitic mass] 31.0 pg 27.0-32.0 [facility] Nucleated RBC/100 WBC (Bld) [Ratio] 0 % 0-5 [facility] MCHC Auto (RBC) [Mass/Vol]Or dered By: Renard Burgos on 08-01-2022 MCHC (RBC) [Mass/Vol] 33.9 g/dL 32-36 [facility] Platelets bldOrdered By: Lyubov Burgos on 08-01-2022 Platelets (Bld) [#/Vol] 208 10*3/uL 150-450 [facility] Absolute lymphocyte countOrd ered By: Renard Burgos on 07-25-2022 Lymphocytes Auto (Unsp spec) [#/Vol] 2.16 10*3/uL 0.83-4.51 [facility] Basophil percentageOrdered B y: Renard Burgos on 07-25-2022 Basophils/100 WBC (Bld) 0.6 % 0-1 [facility] Eosinophils/100 WBC (Bld) 0.6 % 0-5 [facility] Neutrophils (Bld) [#/Vol] 5.4 10*3/uL 2.0-7.7 [facility] Neutrophils/100 WBC (Bld) 64.5 % 47-70 [facility] WBC (Bld) [#/Vol] 8.4 10*3/uL 4.4-11.0 [facility] Blood erythrocytes count (nu mber/volume)Ordered By: Renard Burgos on 07-25-2022 RBC (Bld) [#/Vol] 4.45 10*6/uL 4.6-6.2 [facility] Blood hemoglobin measurement (mass/volume)Ordered By: Renard Burgos on 07-25-2022 Hemoglobin (Bld) [Mass/Vol] 13.4 g/dL 13.0-16.5 [facility] Blood lymphocytes/100 leukoc ytesOrdered By: Renard Burgos on 07-25-2022 Lymphocytes/100 WBC (Bld) 25.7 % 19-41 [facility] Blood monocytes/100 leukocyt esOrdered By: Renard Burgos on 07-25-2022 Monocytes/100 WBC (Bld) 8.4 % 0-10 [facility] Blood platelet mean volumeOr dered By: Renard Burgos on 07-25-2022 Platelet mean volume (Bld) [Entitic vol] 11.0 fL 6.2-12.0 [facility] Determination of erythrocyte mean corpuscular volume (MCV)Ordered By: Renard Burgos on 07-25-2022 MCV (RBC) [Entitic vol] 92.8 fL 80-94 [facility] Hematocrit Auto (Bld) [Volum e fraction]Ordered By: Renard Burgos on 07-25-2022 Hematocrit (Bld) [Volume fraction] 41.3 % 40-54 [facility] - Hematology and Cell countsOrdered By: Renard Burgos on 07-25-2022 Erythrocyte distribution width (RBC) [Entitic vol] 42.5 fL 35.1-43.9 [facility] Erythrocyte distribution width (RBC) [Ratio] 12.5 % 11.6-14.6 [facility] Immature granulocytes/100 WBC (Bld) 0.200 % 0.0-0.9 [facility] Comment on above: IG% - Immature Granu locytes (promyelocytes, myelocytes and metamyelocytes) > 1% indicates that a LEFT SHIFT is Present. MCH (RBC) [Entitic mass] 30.1 pg 27.0-32.0 [facility] Nucleated RBC/100 WBC (Bld) [Ratio] 0 % 0-5 [facility] MCHC Auto (RBC) [Mass/Vol]Or dered By: Renard Burgos on 07-25-2022 MCHC (RBC) [Mass/Vol] 32.4 g/dL 32-36 [facility] Platelets bldOrdered By: Lyubov Burgos on 07-25-2022 Platelets (Bld) [#/Vol] 200 10*3/uL 150-450 [facility] No Panel InformationOrdered By: Renard Burgos on 07-19-2022 Vitamin D 25-Hydroxy 34.2 ng/mL [facility] Comment on above: Vitamin D 25(OH) Sta tus Range Deficiency <20 ng/mL (50nmol/L) Insufficiency 20 - 30 ng/mL (50 - 75 nmol/L) Sufficiency 30 - 100 ng/mL (75 - 250 nmol/L) Toxicity >100 ng/mL (>250 nmol/L) Absolute lymphocyte countOrd ered By: Renard Burgos on 07-18-2022 Lymphocytes Auto (Unsp spec) [#/Vol] 2.48 10*3/uL 0.83-4.51 [facility] Basophil percentageOrdered B y: Renard Burgos on 07-18-2022 Basophils/100 WBC (Bld) 0.5 % 0-1 [facility] Eosinophils/100 WBC (Bld) 0.6 % 0-5 [facility] Neutrophils (Bld) [#/Vol] 5.9 10*3/uL 2.0-7.7 [facility] Neutrophils/100 WBC (Bld) 61.6 % 47-70 [facility] WBC (Bld) [#/Vol] 9.6 10*3/uL 4.4-11.0 [facility] Blood erythrocytes count (nu mber/volume)Ordered By: Renard Burgos on 07-18-2022 RBC (Bld) [#/Vol] 4.56 10*6/uL 4.6-6.2 [facility] Blood hemoglobin measurement (mass/volume)Ordered By: Renard Burgos on 07-18-2022 Hemoglobin (Bld) [Mass/Vol] 13.9 g/dL 13.0-16.5 [facility] Blood lymphocytes/100 leukoc ytesOrdered By: Renard Burgos on 07-18-2022 Lymphocytes/100 WBC (Bld) 25.9 % 19-41 [facility] Blood monocytes/100 leukocyt esOrdered By: Renard Burgos on 07-18-2022 Monocytes/100 WBC (Bld) 11.0 % 0-10 [facility] Blood platelet mean volumeOr dered By: Renard Burgos on 07-18-2022 Platelet mean volume (Bld) [Entitic vol] 11.3 fL 6.2-12.0 [facility] Determination of erythrocyte mean corpuscular volume (MCV)Ordered By: Renard Burgos on 07-18-2022 MCV (RBC) [Entitic vol] 93.9 fL 80-94 [facility] Hematocrit Auto (Bld) [Volum e fraction]Ordered By: Renard Burgos on 07-18-2022 Hematocrit (Bld) [Volume fraction] 42.8 % 40-54 [facility] - Hematology and Cell countsOrdered By: Renard Burgos on 07-18-2022 Erythrocyte distribution width (RBC) [Entitic vol] 44.0 fL 35.1-43.9 [facility] Erythrocyte distribution width (RBC) [Ratio] 12.8 % 11.6-14.6 [facility] Immature granulocytes/100 WBC (Bld) 0.400 % 0.0-0.9 [facility] Comment on above: IG% - Immature Granu locytes (promyelocytes, myelocytes and metamyelocytes) > 1% indicates that a LEFT SHIFT is Present. MCH (RBC) [Entitic mass] 30.5 pg 27.0-32.0 [facility] Nucleated RBC/100 WBC (Bld) [Ratio] 0 % 0-5 [facility] MCHC Auto (RBC) [Mass/Vol]Or dered By: Renard Burgos on 07-18-2022 MCHC (RBC) [Mass/Vol] 32.5 g/dL 32-36 [facility] Platelets bldOrdered By: Lyubov Burgos on 07-18-2022 Platelets (Bld) [#/Vol] 207 10*3/uL 150-450 [facility] Absolute lymphocyte countOrd ered By: Renard Burgos on 07-11-2022 Lymphocytes Auto (Unsp spec) [#/Vol] 2.37 10*3/uL 0.83-4.51 [facility] Basophil percentageOrdered B y: Renard Burgos on 07-11-2022 Basophils/100 WBC (Bld) 0.6 % 0-1 [facility] Eosinophils/100 WBC (Bld) 0.5 % 0-5 [facility] Neutrophils (Bld) [#/Vol] 5.3 10*3/uL 2.0-7.7 [facility] Neutrophils/100 WBC (Bld) 61.8 % 47-70 [facility] WBC (Bld) [#/Vol] 8.5 10*3/uL 4.4-11.0 [facility] Blood erythrocytes count (nu mber/volume)Ordered By: Renard Burgos on 07-11-2022 RBC (Bld) [#/Vol] 4.83 10*6/uL 4.6-6.2 [facility] Blood hemoglobin measurement (mass/volume)Ordered By: Renard Burgos on 07-11-2022 Hemoglobin (Bld) [Mass/Vol] 14.7 g/dL 13.0-16.5 [facility] Blood lymphocytes/100 leukoc ytesOrdered By: Renard Burgos on 07-11-2022 Lymphocytes/100 WBC (Bld) 27.8 % 19-41 [facility] Blood monocytes/100 leukocyt esOrdered By: Renard Burgos on 07-11-2022 Monocytes/100 WBC (Bld) 8.8 % 0-10 [facility] Blood platelet mean volumeOr dered By: Renard Burgos on 07-11-2022 Platelet mean volume (Bld) [Entitic vol] 10.6 fL 6.2-12.0 [facility] Determination of erythrocyte mean corpuscular volume (MCV)Ordered By: Renard Burgos on 07-11-2022 MCV (RBC) [Entitic vol] 90.7 fL 80-94 [facility] Hematocrit Auto (Bld) [Volum e fraction]Ordered By: Renard Burgos on 07-11-2022 Hematocrit (Bld) [Volume fraction] 43.8 % 40-54 [facility] - Hematology and Cell countsOrdered By: Renard Burgos on 07-11-2022 Erythrocyte distribution width (RBC) [Entitic vol] 41.2 fL 35.1-43.9 [facility] Erythrocyte distribution width (RBC) [Ratio] 12.7 % 11.6-14.6 [facility] Immature granulocytes/100 WBC (Bld) 0.500 % 0.0-0.9 [facility] Comment on above: IG% - Immature Granu locytes (promyelocytes, myelocytes and metamyelocytes) > 1% indicates that a LEFT SHIFT is Present. MCH (RBC) [Entitic mass] 30.4 pg 27.0-32.0 [facility] Nucleated RBC/100 WBC (Bld) [Ratio] 0 % 0-5 [facility] MCHC Auto (RBC) [Mass/Vol]Or dered By: Renard Burgos on 07-11-2022 MCHC (RBC) [Mass/Vol] 33.6 g/dL 32-36 [facility] Platelets bldOrdered By: Lyubov Burgos on 07-11-2022 Platelets (Bld) [#/Vol] 207 10*3/uL 150-450 [facility] Absolute lymphocyte countOrd ered By: Renard Burgos on 07-04-2022 Lymphocytes Auto (Unsp spec) [#/Vol] 1.87 10*3/uL 0.83-4.51 [facility] Basophil percentageOrdered B y: Renard Burgos on 07-04-2022 Basophils/100 WBC (Bld) 0.4 % 0-1 [facility] Eosinophils/100 WBC (Bld) 0.5 % 0-5 [facility] Neutrophils (Bld) [#/Vol] 7.5 10*3/uL 2.0-7.7 [facility] Neutrophils/100 WBC (Bld) 72.8 % 47-70 [facility] WBC (Bld) [#/Vol] 10.3 10*3/uL 4.4-11.0 [facility] Blood erythrocytes count (nu mber/volume)Ordered By: Renard Burgos on 07-04-2022 RBC (Bld) [#/Vol] 4.45 10*6/uL 4.6-6.2 [facility] Blood hemoglobin measurement (mass/volume)Ordered By: Renard Burgos on 07-04-2022 Hemoglobin (Bld) [Mass/Vol] 13.5 g/dL 13.0-16.5 [facility] Blood lymphocytes/100 leukoc ytesOrdered By: Renard Burgos on 07-04-2022 Lymphocytes/100 WBC (Bld) 18.1 % 19-41 [facility] Blood monocytes/100 leukocyt esOrdered By: Renard Burgos on 07-04-2022 Monocytes/100 WBC (Bld) 7.7 % 0-10 [facility] Blood platelet mean volumeOr dered By: Renard Burgos on 07-04-2022 Platelet mean volume (Bld) [Entitic vol] 11.3 fL 6.2-12.0 [facility] Determination of erythrocyte mean corpuscular volume (MCV)Ordered By: Renard Burgos on 07-04-2022 MCV (RBC) [Entitic vol] 93.0 fL 80-94 [facility] Hematocrit Auto (Bld) [Volum e fraction]Ordered By: Renard Burgos on 07-04-2022 Hematocrit (Bld) [Volume fraction] 41.4 % 40-54 [facility] - Hematology and Cell countsOrdered By: Renard Burgos on 07-04-2022 Erythrocyte distribution width (RBC) [Entitic vol] 43.0 fL 35.1-43.9 [facility] Erythrocyte distribution width (RBC) [Ratio] 12.5 % 11.6-14.6 [facility] Immature granulocytes/100 WBC (Bld) 0.500 % 0.0-0.9 [facility] Comment on above: IG% - Immature Granu locytes (promyelocytes, myelocytes and metamyelocytes) > 1% indicates that a LEFT SHIFT is Present. MCH (RBC) [Entitic mass] 30.3 pg 27.0-32.0 [facility] Nucleated RBC/100 WBC (Bld) [Ratio] 0 % 0-5 [facility] MCHC Auto (RBC) [Mass/Vol]Or dered By: Renard Burgos on 07-04-2022 MCHC (RBC) [Mass/Vol] 32.6 g/dL 32-36 [facility] Platelets bldOrdered By: Lyubov Burgos on 07-04-2022 Platelets (Bld) [#/Vol] 211 10*3/uL 150-450 [facility] Absolute lymphocyte countOrd ered By: Renard Burgos on 06-27-2022 Lymphocytes Auto (Unsp spec) [#/Vol] 1.83 10*3/uL 0.83-4.51 [facility] Basophil percentageOrdered B y: Renard Burgos on 06-27-2022 Basophils/100 WBC (Bld) 0.4 % 0-1 [facility] Eosinophils/100 WBC (Bld) 0.5 % 0-5 [facility] Neutrophils (Bld) [#/Vol] 5.0 10*3/uL 2.0-7.7 [facility] Neutrophils/100 WBC (Bld) 67.6 % 47-70 [facility] WBC (Bld) [#/Vol] 7.4 10*3/uL 4.4-11.0 [facility] Blood erythrocytes count (nu mber/volume)Ordered By: Renard Burgos on 06-27-2022 RBC (Bld) [#/Vol] 4.52 10*6/uL 4.6-6.2 [facility] Blood hemoglobin measurement (mass/volume)Ordered By: Renard Burgos on 06-27-2022 Hemoglobin (Bld) [Mass/Vol] 13.9 g/dL 13.0-16.5 [facility] Blood lymphocytes/100 leukoc ytesOrdered By: Renard Burgos on 06-27-2022 Lymphocytes/100 WBC (Bld) 24.7 % 19-41 [facility] Blood monocytes/100 leukocyt esOrdered By: Renard Burgos on 06-27-2022 Monocytes/100 WBC (Bld) 6.4 % 0-10 [facility] Blood platelet mean volumeOr dered By: Renard Burgos on 06-27-2022 Platelet mean volume (Bld) [Entitic vol] 10.7 fL 6.2-12.0 [facility] Determination of erythrocyte mean corpuscular volume (MCV)Ordered By: Renard Burgos on 06-27-2022 MCV (RBC) [Entitic vol] 91.2 fL 80-94 [facility] Hematocrit Auto (Bld) [Volum e fraction]Ordered By: Renard Burgos on 06-27-2022 Hematocrit (Bld) [Volume fraction] 41.2 % 40-54 [facility] - Hematology and Cell countsOrdered By: Renard Brugos on 06-27-2022 Erythrocyte distribution width (RBC) [Entitic vol] 41.9 fL 35.1-43.9 [facility] Erythrocyte distribution width (RBC) [Ratio] 12.7 % 11.6-14.6 [facility] Immature granulocytes/100 WBC (Bld) 0.400 % 0.0-0.9 [facility] Comment on above: IG% - Immature Granu locytes (promyelocytes, myelocytes and metamyelocytes) > 1% indicates that a LEFT SHIFT is Present. MCH (RBC) [Entitic mass] 30.8 pg 27.0-32.0 [facility] Nucleated RBC/100 WBC (Bld) [Ratio] 0 % 0-5 [facility] MCHC Auto (RBC) [Mass/Vol]Or dered By: Renard Burgos on 06-27-2022 MCHC (RBC) [Mass/Vol] 33.7 g/dL 32-36 [facility] Platelets bldOrdered By: Lyubov Burgos on 06-27-2022 Platelets (Bld) [#/Vol] 200 10*3/uL 150-450 [facility] Absolute lymphocyte countOrd ered By: Renard Burgos on 06-20-2022 Lymphocytes Auto (Unsp spec) [#/Vol] 1.57 10*3/uL 0.83-4.51 [facility] Basophil percentageOrdered B y: Renard Burgos on 06-20-2022 Basophils/100 WBC (Bld) 0.2 % 0-1 [facility] Eosinophils/100 WBC (Bld) 0.2 % 0-5 [facility] Neutrophils (Bld) [#/Vol] 6.5 10*3/uL 2.0-7.7 [facility] Neutrophils/100 WBC (Bld) 74.5 % 47-70 [facility] WBC (Bld) [#/Vol] 8.8 10*3/uL 4.4-11.0 [facility] Blood erythrocytes count (nu mber/volume)Ordered By: Renard Burgos on 06-20-2022 RBC (Bld) [#/Vol] 4.79 10*6/uL 4.6-6.2 [facility] Blood hemoglobin measurement (mass/volume)Ordered By: Renard Burgos on 06-20-2022 Hemoglobin (Bld) [Mass/Vol] 14.6 g/dL 13.0-16.5 [facility] Blood lymphocytes/100 leukoc ytesOrdered By: Renard Burgos on 06-20-2022 Lymphocytes/100 WBC (Bld) 17.8 % 19-41 [facility] Blood monocytes/100 leukocyt esOrdered By: Renard Burgos on 06-20-2022 Monocytes/100 WBC (Bld) 7.0 % 0-10 [facility] Blood platelet mean volumeOr dered By: Renard Burgos on 06-20-2022 Platelet mean volume (Bld) [Entitic vol] 11.1 fL 6.2-12.0 [facility] Determination of erythrocyte mean corpuscular volume (MCV)Ordered By: Renard Burgos on 06-20-2022 MCV (RBC) [Entitic vol] 92.1 fL 80-94 [facility] Hematocrit Auto (Bld) [Volum e fraction]Ordered By: Renard Burgos on 06-20-2022 Hematocrit (Bld) [Volume fraction] 44.1 % 40-54 [facility] Laboratory - Hematology and Cell countsOrdered By: Renard Burgos on 06-20-2022 Erythrocyte distribution width (RBC) [Entitic vol] 42.4 fL 35.1-43.9 [facility] Erythrocyte distribution width (RBC) [Ratio] 12.6 % 11.6-14.6 [facility] Immature granulocytes/100 WBC (Bld) 0.300 % 0.0-0.9 [facility] Comment on above: IG% - Immature Granu locytes (promyelocytes, myelocytes and metamyelocytes) > 1% indicates that a LEFT SHIFT is Present. MCH (RBC) [Entitic mass] 30.5 pg 27.0-32.0 [facility] Nucleated RBC/100 WBC (Bld) [Ratio] 0 % 0-5 [facility] MCHC Auto (RBC) [Mass/Vol]Or dered By: Renard Burgos on 06-20-2022 MCHC (RBC) [Mass/Vol] 33.1 g/dL 32-36 [facility] Platelets bldOrdered By: Lyubov Burgos on 06-20-2022 Platelets (Bld) [#/Vol] 207 10*3/uL 150-450 [facility] Absolute lymphocyte countOrd ered By: Renard Burgos on 06-13-2022 Lymphocytes Auto (Unsp spec) [#/Vol] 2.28 10*3/uL 0.83-4.51 [facility] Basophil percentageOrdered B y: Renard Burgos on 06-13-2022 Basophils/100 WBC (Bld) 0.5 % 0-1 [facility] Eosinophils/100 WBC (Bld) 0.4 % 0-5 [facility] Neutrophils (Bld) [#/Vol] 6.0 10*3/uL 2.0-7.7 [facility] Neutrophils/100 WBC (Bld) 65.6 % 47-70 [facility] WBC (Bld) [#/Vol] 9.2 10*3/uL 4.4-11.0 [facility] Blood erythrocytes count (nu mber/volume)Ordered By: Renard Burgos on 06-13-2022 RBC (Bld) [#/Vol] 4.55 10*6/uL 4.6-6.2 [facility] Blood hemoglobin measurement (mass/volume)Ordered By: Renard Burgos on 06-13-2022 Hemoglobin (Bld) [Mass/Vol] 13.7 g/dL 13.0-16.5 [facility] Blood lymphocytes/100 leukoc ytesOrdered By: Renard Burgos on 06-13-2022 Lymphocytes/100 WBC (Bld) 24.9 % 19-41 [facility] Blood monocytes/100 leukocyt esOrdered By: Renard Burgos on 06-13-2022 Monocytes/100 WBC (Bld) 8.2 % 0-10 [facility] Blood platelet mean volumeOr dered By: Renard Burgos on 06-13-2022 Platelet mean volume (Bld) [Entitic vol] 10.9 fL 6.2-12.0 [facility] Determination of erythrocyte mean corpuscular volume (MCV)Ordered By: Renard Burgos on 06-13-2022 MCV (RBC) [Entitic vol] 92.3 fL 80-94 [facility] Hematocrit Auto (Bld) [Volum e fraction]Ordered By: Renard Burgos on 06-13-2022 Hematocrit (Bld) [Volume fraction] 42.0 % 40-54 [facility] - Hematology and Cell countsOrdered By: Renard Burgos on 06-13-2022 Erythrocyte distribution width (RBC) [Entitic vol] 43.2 fL 35.1-43.9 [facility] Erythrocyte distribution width (RBC) [Ratio] 12.8 % 11.6-14.6 [facility] Immature granulocytes/100 WBC (Bld) 0.400 % 0.0-0.9 [facility] Comment on above: IG% - Immature Granu locytes (promyelocytes, myelocytes and metamyelocytes) > 1% indicates that a LEFT SHIFT is Present. MCH (RBC) [Entitic mass] 30.1 pg 27.0-32.0 [facility] Nucleated RBC/100 WBC (Bld) [Ratio] 0 % 0-5 [facility] MCHC Auto (RBC) [Mass/Vol]Or dered By: Renard Burgos on 06-13-2022 MCHC (RBC) [Mass/Vol] 32.6 g/dL 32-36 [facility] Platelets bldOrdered By: Lyubov Burgos on 06-13-2022 Platelets (Bld) [#/Vol] 203 10*3/uL 150-450 [facility] Absolute lymphocyte countOrd ered By: Renard Burgos on 06-06-2022 Lymphocytes Auto (Unsp spec) [#/Vol] 2.02 10*3/uL 0.83-4.51 [facility] Basophil percentageOrdered B y: Renard Burgos on 06-06-2022 Basophils/100 WBC (Bld) 0.5 % 0-1 [facility] Eosinophils/100 WBC (Bld) 0.7 % 0-5 [facility] Neutrophils (Bld) [#/Vol] 4.7 10*3/uL 2.0-7.7 [facility] Neutrophils/100 WBC (Bld) 63.3 % 47-70 [facility] WBC (Bld) [#/Vol] 7.4 10*3/uL 4.4-11.0 [facility] Blood erythrocytes count (nu mber/volume)Ordered By: Renard Burgos on 06-06-2022 RBC (Bld) [#/Vol] 4.57 10*6/uL 4.6-6.2 [facility] Blood hemoglobin measurement (mass/volume)Ordered By: Renard Burgos on 06-06-2022 Hemoglobin (Bld) [Mass/Vol] 14.0 g/dL 13.0-16.5 [facility] Blood lymphocytes/100 leukoc ytesOrdered By: Renard Burgos on 06-06-2022 Lymphocytes/100 WBC (Bld) 27.2 % 19-41 [facility] Blood monocytes/100 leukocyt esOrdered By: Renard Burgos on 06-06-2022 Monocytes/100 WBC (Bld) 7.9 % 0-10 [facility] Blood platelet mean volumeOr dered By: Renard Burgos on 06-06-2022 Platelet mean volume (Bld) [Entitic vol] 10.7 fL 6.2-12.0 [facility] Determination of erythrocyte mean corpuscular volume (MCV)Ordered By: Renard Burgos on 06-06-2022 MCV (RBC) [Entitic vol] 90.2 fL 80-94 [facility] Hematocrit Auto (Bld) [Volum e fraction]Ordered By: Renard Burgos on 06-06-2022 Hematocrit (Bld) [Volume fraction] 41.2 % 40-54 [facility] - Hematology and Cell countsOrdered By: Renard Burgos on 06-06-2022 Erythrocyte distribution width (RBC) [Entitic vol] 41.5 fL 35.1-43.9 [facility] Erythrocyte distribution width (RBC) [Ratio] 12.7 % 11.6-14.6 [facility] Immature granulocytes/100 WBC (Bld) 0.400 % 0.0-0.9 [facility] Comment on above: IG% - Immature Granu locytes (promyelocytes, myelocytes and metamyelocytes) > 1% indicates that a LEFT SHIFT is Present. MCH (RBC) [Entitic mass] 30.6 pg 27.0-32.0 [facility] Nucleated RBC/100 WBC (Bld) [Ratio] 0 % 0-5 [facility] MCHC Auto (RBC) [Mass/Vol]Or dered By: Renard Burgos on 06-06-2022 MCHC (RBC) [Mass/Vol] 34.0 g/dL 32-36 [facility] Platelets bldOrdered By: Lyubov Burgos on 06-06-2022 Platelets (Bld) [#/Vol] 197 10*3/uL 150-450 [facility] Absolute lymphocyte countOrd ered By: Renard Burgos on 05-30-2022 Lymphocytes Auto (Unsp spec) [#/Vol] 2.32 10*3/uL 0.83-4.51 [facility] Basophil percentageOrdered B y: Renard Burgos on 05-30-2022 Basophils/100 WBC (Bld) 0.4 % 0-1 [facility] Eosinophils/100 WBC (Bld) 0.5 % 0-5 [facility] Neutrophils (Bld) [#/Vol] 5.2 10*3/uL 2.0-7.7 [facility] Neutrophils/100 WBC (Bld) 62.6 % 47-70 [facility] WBC (Bld) [#/Vol] 8.3 10*3/uL 4.4-11.0 [facility] Blood erythrocytes count (nu mber/volume)Ordered By: Renard Burgos on 05-30-2022 RBC (Bld) [#/Vol] 4.87 10*6/uL 4.6-6.2 [facility] Blood hemoglobin measurement (mass/volume)Ordered By: Renard Burgos on 05-30-2022 Hemoglobin (Bld) [Mass/Vol] 14.6 g/dL 13.0-16.5 [facility] Blood lymphocytes/100 leukoc ytesOrdered By: Renard Burgos on 05-30-2022 Lymphocytes/100 WBC (Bld) 27.9 % 19-41 [facility] Blood monocytes/100 leukocyt esOrdered By: Renard Burgos on 05-30-2022 Monocytes/100 WBC (Bld) 8.0 % 0-10 [facility] Blood platelet mean volumeOr dered By: Renard Burgos on 05-30-2022 Platelet mean volume (Bld) [Entitic vol] 10.9 fL 6.2-12.0 [facility] Determination of erythrocyte mean corpuscular volume (MCV)Ordered By: Renard Burgos on 05-30-2022 MCV (RBC) [Entitic vol] 91.6 fL 80-94 [facility] Hematocrit Auto (Bld) [Volum e fraction]Ordered By: Renard Burgos on 05-30-2022 Hematocrit (Bld) [Volume fraction] 44.6 % 40-54 [facility] - Hematology and Cell countsOrdered By: Renard Burgos on 05-30-2022 Erythrocyte distribution width (RBC) [Entitic vol] 42.4 fL 35.1-43.9 [facility] Erythrocyte distribution width (RBC) [Ratio] 12.6 % 11.6-14.6 [facility] Immature granulocytes/100 WBC (Bld) 0.600 % 0.0-0.9 [facility] Comment on above: IG% - Immature Granu locytes (promyelocytes, myelocytes and metamyelocytes) > 1% indicates that a LEFT SHIFT is Present. MCH (RBC) [Entitic mass] 30.0 pg 27.0-32.0 [facility] Nucleated RBC/100 WBC (Bld) [Ratio] 0 % 0-5 [facility] MCHC Auto (RBC) [Mass/Vol]Or dered By: Renard Burgos on 05-30-2022 MCHC (RBC) [Mass/Vol] 32.7 g/dL 32-36 [facility] Platelets bldOrdered By: Lyubov Burgos on 05-30-2022 Platelets (Bld) [#/Vol] 213 10*3/uL 150-450 [facility] Absolute lymphocyte countOrd ered By: Renard Burgos on 05-23-2022 Lymphocytes Auto (Unsp spec) [#/Vol] 2.07 10*3/uL 0.83-4.51 [facility] Basophil percentageOrdered B y: Renard Burgos on 05-23-2022 Basophils/100 WBC (Bld) 0.5 % 0-1 [facility] Eosinophils/100 WBC (Bld) 0.4 % 0-5 [facility] Neutrophils (Bld) [#/Vol] 5.7 10*3/uL 2.0-7.7 [facility] Neutrophils/100 WBC (Bld) 66.5 % 47-70 [facility] WBC (Bld) [#/Vol] 8.5 10*3/uL 4.4-11.0 [facility] Blood erythrocytes count (nu mber/volume)Ordered By: Renard Burgos on 05-23-2022 RBC (Bld) [#/Vol] 4.75 10*6/uL 4.6-6.2 [facility] Blood hemoglobin measurement (mass/volume)Ordered By: Renard Burgos on 05-23-2022 Hemoglobin (Bld) [Mass/Vol] 14.3 g/dL 13.0-16.5 [facility] Blood lymphocytes/100 leukoc ytesOrdered By: Renard Burgos on 05-23-2022 Lymphocytes/100 WBC (Bld) 24.4 % 19-41 [facility] Blood monocytes/100 leukocyt esOrdered By: Renard Burgos on 05-23-2022 Monocytes/100 WBC (Bld) 7.7 % 0-10 [facility] Blood platelet mean volumeOr dered By: Renard Burgos on 05-23-2022 Platelet mean volume (Bld) [Entitic vol] 11.1 fL 6.2-12.0 [facility] Determination of erythrocyte mean corpuscular volume (MCV)Ordered By: Renard Burgos on 05-23-2022 MCV (RBC) [Entitic vol] 90.9 fL 80-94 [facility] Hematocrit Auto (Bld) [Volum e fraction]Ordered By: Renard Burgos on 05-23-2022 Hematocrit (Bld) [Volume fraction] 43.2 % 40-54 [facility] - Hematology and Cell countsOrdered By: Renard Burgos on 05-23-2022 Erythrocyte distribution width (RBC) [Entitic vol] 41.7 fL 35.1-43.9 [facility] Erythrocyte distribution width (RBC) [Ratio] 12.5 % 11.6-14.6 [facility] Immature granulocytes/100 WBC (Bld) 0.500 % 0.0-0.9 [facility] Comment on above: IG% - Immature Granu locytes (promyelocytes, myelocytes and metamyelocytes) > 1% indicates that a LEFT SHIFT is Present. MCH (RBC) [Entitic mass] 30.1 pg 27.0-32.0 [facility] Nucleated RBC/100 WBC (Bld) [Ratio] 0 % 0-5 [facility] MCHC Auto (RBC) [Mass/Vol]Or dered By: Renard Burgos on 05-23-2022 MCHC (RBC) [Mass/Vol] 33.1 g/dL 32-36 [facility] Platelets bldOrdered By: Lyubov Burgos on 05-23-2022 Platelets (Bld) [#/Vol] 213 10*3/uL 150-450 [facility] No Panel Informationon 05-20 Dejah Hazel DO 05/20/2022 7:32 PM Feeding Tube Replacement Performed by: Dejah Hazel DO Authorized by: Abelardo Rios DO Consent: Consent obtained: Verbal Consent given by: Patient [place] protocol: Patient identity confirmed: Verbally with patient [...] Procedure completion: Tolerated well, no immediate complications [facility] XR Abdomen Single viewon G-tube position is within the stomach. No evidence of contrast extravasation. Report Dictated on Electronically Signed By: Jason Tran Electronically Signed Date/Time: 05/20/2022 7:38 PM [facility] [employer] Patient Name: KATHYA HOOPER Exam Date/Time: 05/20/2022 19:18 Procedure: XR ABDOMEN 1 VIEW Ordering Provider: RIOS TYLER Reason For Exam: SUPINE ABDOMEN (KUB) CLINICAL INDICATION: confirm placement of G tube A supine plain film of the abdomen was obtained. Repeat abdominal radiographs following hand injection of enteric contrast via the patient's enteric tube. (Gastrografin 30 mL). COMPARISON: None FINDINGS: On the insurance policy issue clerk image, no dilated bowel loops are identified. Feeding tube overlies the epigastric region of the abdomen. On the postcontrast images, there is a small amount of enteric contrast in the stomach and contrast is present throughout the proximal duodenum. No extravasated contrast is evident. [facility] Jason Tran M D - [...] 30 mL). COMPARISON: None FINDINGS: On the insurance policy issue clerk image, no dilated bowel loops are [...] Signed Date/Time: 05/20/2022 7:38 PM EST [facility] XR Abdomen Single viewOrdere d By: Jason Tran on 05-20-2022 [employer] Work Phone: Absolute lymphocyte countOrd ered By: Renard Burgos on 05-16-2022 Lymphocytes Auto (Unsp spec) [#/Vol] 2.06 10*3/uL 0.83-4.51 [facility] Basophil percentageOrdered B y: Renard Burgos on 05-16-2022 Basophils/100 WBC (Bld) 0.6 % 0-1 [facility] Eosinophils/100 WBC (Bld) 0.6 % 0-5 [facility] Neutrophils (Bld) [#/Vol] 4.4 10*3/uL 2.0-7.7 [facility] Neutrophils/100 WBC (Bld) 61.2 % 47-70 [facility] WBC (Bld) [#/Vol] 7.1 10*3/uL 4.4-11.0 [facility] Blood erythrocytes count (nu mber/volume)Ordered By: Renard Burgos on 05-16-2022 RBC (Bld) [#/Vol] 4.58 10*6/uL 4.6-6.2 [facility] Blood hemoglobin measurement (mass/volume)Ordered By: Renard Burgos on 05-16-2022 Hemoglobin (Bld) [Mass/Vol] 13.9 g/dL 13.0-16.5 [facility] Blood lymphocytes/100 leukoc ytesOrdered By: Renard Brugos on 05-16-2022 Lymphocytes/100 WBC (Bld) 29.0 % 19-41 [facility] Blood monocytes/100 leukocyt esOrdered By: Renard Burgos on 05-16-2022 Monocytes/100 WBC (Bld) 8.2 % 0-10 [facility] Blood platelet mean volumeOr dered By: Renard Burgos on 05-16-2022 Platelet mean volume (Bld) [Entitic vol] 11.1 fL 6.2-12.0 [facility] Determination of erythrocyte mean corpuscular volume (MCV)Ordered By: Renard Burgos on 05-16-2022 MCV (RBC) [Entitic vol] 91.5 fL 80-94 [facility] Hematocrit Auto (Bld) [Volum e fraction]Ordered By: Renard Burgos on 05-16-2022 Hematocrit (Bld) [Volume fraction] 41.9 % 40-54 [facility] - Hematology and Cell countsOrdered By: Renard Burgos on 05-16-2022 Erythrocyte distribution width (RBC) [Entitic vol] 41.3 fL 35.1-43.9 [facility] Erythrocyte distribution width (RBC) [Ratio] 12.5 % 11.6-14.6 [facility] Immature granulocytes/100 WBC (Bld) 0.400 % 0.0-0.9 [facility] Comment on above: IG% - Immature Granu locytes (promyelocytes, myelocytes and metamyelocytes) > 1% indicates that a LEFT SHIFT is Present. MCH (RBC) [Entitic mass] 30.3 pg 27.0-32.0 [facility] Nucleated RBC/100 WBC (Bld) [Ratio] 0 % 0-5 [facility] MCHC Auto (RBC) [Mass/Vol]Or dered By: Renard Burgos on 05-16-2022 MCHC (RBC) [Mass/Vol] 33.2 g/dL 32-36 [facility] Platelets bldOrdered By: Lyubov Burgos on 05-16-2022 Platelets (Bld) [#/Vol] 205 10*3/uL 150-450 [facility] Absolute lymphocyte countOrd ered By: Renard Burgos on 05-09-2022 Lymphocytes Auto (Unsp spec) [#/Vol] 1.92 10*3/uL 0.83-4.51 [facility] Basophil percentageOrdered B y: Renard Burgos on 05-09-2022 Basophils/100 WBC (Bld) 0.7 % 0-1 [facility] Eosinophils/100 WBC (Bld) 0.7 % 0-5 [facility] Neutrophils (Bld) [#/Vol] 4.3 10*3/uL 2.0-7.7 [facility] Neutrophils/100 WBC (Bld) 60.9 % 47-70 [facility] WBC (Bld) [#/Vol] 7.1 10*3/uL 4.4-11.0 [facility] Blood erythrocytes count (nu mber/volume)Ordered By: Renard Burgos on 05-09-2022 RBC (Bld) [#/Vol] 4.67 10*6/uL 4.6-6.2 [facility] Blood hemoglobin measurement (mass/volume)Ordered By: Renard Burgos on 05-09-2022 Hemoglobin (Bld) [Mass/Vol] 14.1 g/dL 13.0-16.5 [facility] Blood lymphocytes/100 leukoc ytesOrdered By: Renard Burgos on 05-09-2022 Lymphocytes/100 WBC (Bld) 27.2 % 19-41 [facility] Blood monocytes/100 leukocyt esOrdered By: Renard Burgos on 05-09-2022 Monocytes/100 WBC (Bld) 10.2 % 0-10 [facility] Blood platelet mean volumeOr dered By: Renard Burgos on 05-09-2022 Platelet mean volume (Bld) [Entitic vol] 11.5 fL 6.2-12.0 [facility] Determination of erythrocyte mean corpuscular volume (MCV)Ordered By: Renard Burgos on 05-09-2022 MCV (RBC) [Entitic vol] 91.0 fL 80-94 [facility] Hematocrit Auto (Bld) [Volum e fraction]Ordered By: Renard Burgos on 05-09-2022 Hematocrit (Bld) [Volume fraction] 42.5 % 40-54 [facility] - Hematology and Cell countsOrdered By: Renard Burgos on 05-09-2022 Erythrocyte distribution width (RBC) [Entitic vol] 41.4 fL 35.1-43.9 [facility] Erythrocyte distribution width (RBC) [Ratio] 12.7 % 11.6-14.6 [facility] Immature granulocytes/100 WBC (Bld) 0.300 % 0.0-0.9 [facility] Comment on above: IG% - Immature Granu locytes (promyelocytes, myelocytes and metamyelocytes) > 1% indicates that a LEFT SHIFT is Present. MCH (RBC) [Entitic mass] 30.2 pg 27.0-32.0 [facility] Nucleated RBC/100 WBC (Bld) [Ratio] 0.4 % 0-5 [facility] MCHC Auto (RBC) [Mass/Vol]Or dered By: Renard Burgos on 05-09-2022 MCHC (RBC) [Mass/Vol] 33.2 g/dL 32-36 [facility] Platelets bldOrdered By: Lyubov Burgos on 05-09-2022 Platelets (Bld) [#/Vol] 202 10*3/uL 150-450 [facility] Absolute lymphocyte countOrd ered By: Renard Burgos on 05-03-2022 Lymphocytes Auto (Unsp spec) [#/Vol] 1.86 10*3/uL 0.83-4.51 [facility] Basophil percentageOrdered B y: Renard Burgos on 05-03-2022 Basophils/100 WBC (Bld) 0.3 % 0-1 [facility] Eosinophils/100 WBC (Bld) 0.3 % 0-5 [facility] Neutrophils (Bld) [#/Vol] 6.4 10*3/uL 2.0-7.7 [facility] Neutrophils/100 WBC (Bld) 71.9 % 47-70 [facility] WBC (Bld) [#/Vol] 8.9 10*3/uL 4.4-11.0 [facility] Blood erythrocytes count (nu mber/volume)Ordered By: Renard Burgos on 05-03-2022 RBC (Bld) [#/Vol] 4.65 10*6/uL 4.6-6.2 [facility] Blood hemoglobin measurement (mass/volume)Ordered By: Renard Burgos on 05-03-2022 Hemoglobin (Bld) [Mass/Vol] 14.5 g/dL 13.0-16.5 [facility] Blood lymphocytes/100 leukoc ytesOrdered By: Renard Burgos on 05-03-2022 Lymphocytes/100 WBC (Bld) 20.9 % 19-41 [facility] Blood monocytes/100 leukocyt esOrdered By: Renard Burgos on 05-03-2022 Monocytes/100 WBC (Bld) 6.2 % 0-10 [facility] Blood platelet mean volumeOr dered By: Renard Burgos on 05-03-2022 Platelet mean volume (Bld) [Entitic vol] 11.1 fL 6.2-12.0 [facility] Determination of erythrocyte mean corpuscular volume (MCV)Ordered By: Renard Burgos on 05-03-2022 MCV (RBC) [Entitic vol] 90.1 fL 80-94 [facility] Hematocrit Auto (Bld) [Volum e fraction]Ordered By: Renard Burgos on 05-03-2022 Hematocrit (Bld) [Volume fraction] 41.9 % 40-54 [facility] - Hematology and Cell countsOrdered By: Renard Burgos on 05-03-2022 Erythrocyte distribution width (RBC) [Entitic vol] 39.7 fL 35.1-43.9 [facility] Erythrocyte distribution width (RBC) [Ratio] 12.2 % 11.6-14.6 [facility] Immature granulocytes/100 WBC (Bld) 0.400 % 0.0-0.9 [facility] Comment on above: IG% - Immature Granu locytes (promyelocytes, myelocytes and metamyelocytes) > 1% indicates that a LEFT SHIFT is Present. MCH (RBC) [Entitic mass] 31.2 pg 27.0-32.0 [facility] Nucleated RBC/100 WBC (Bld) [Ratio] 0 % 0-5 [facility] MCHC Auto (RBC) [Mass/Vol]Or dered By: Renard Burgos on 05-03-2022 MCHC (RBC) [Mass/Vol] 34.6 g/dL 32-36 [facility] Platelets bldOrdered By: Lyubov Burgos on 05-03-2022 Platelets (Bld) [#/Vol] 203 10*3/uL 150-450 [facility] Absolute lymphocyte countOrd ered By: Renard Burgos on 04-26-2022 Lymphocytes Auto (Unsp spec) [#/Vol] 2.79 10*3/uL 0.83-4.51 [facility] Basophil percentageOrdered B y: Renard Burgos on 04-26-2022 Basophils/100 WBC (Bld) 0.4 % 0-1 [facility] Eosinophils/100 WBC (Bld) 0.4 % 0-5 [facility] Neutrophils (Bld) [#/Vol] 5.9 10*3/uL 2.0-7.7 [facility] Neutrophils/100 WBC (Bld) 60.9 % 47-70 [facility] WBC (Bld) [#/Vol] 9.7 10*3/uL 4.4-11.0 [facility] Blood erythrocytes count (nu mber/volume)Ordered By: Renard Burgos on 04-26-2022 RBC (Bld) [#/Vol] 4.92 10*6/uL 4.6-6.2 [facility] Blood hemoglobin measurement (mass/volume)Ordered By: Renard Burogs on 04-26-2022 Hemoglobin (Bld) [Mass/Vol] 15.2 g/dL 13.0-16.5 [facility] Blood lymphocytes/100 leukoc ytesOrdered By: Renard Burgos on 04-26-2022 Lymphocytes/100 WBC (Bld) 28.9 % 19-41 [facility] Blood monocytes/100 leukocyt esOrdered By: Renard Burgos on 04-26-2022 Monocytes/100 WBC (Bld) 9.0 % 0-10 [facility] Blood platelet mean volumeOr dered By: Renard Burgos on 04-26-2022 Platelet mean volume (Bld) [Entitic vol] 11.0 fL 6.2-12.0 [facility] Determination of erythrocyte mean corpuscular volume (MCV)Ordered By: Renard Burgos on 04-26-2022 MCV (RBC) [Entitic vol] 92.3 fL 80-94 [facility] Hematocrit Auto (Bld) [Volum e fraction]Ordered By: Renard Burgos on 04-26-2022 Hematocrit (Bld) [Volume fraction] 45.4 % 40-54 [facility] - Hematology and Cell countsOrdered By: Renard Burgos on 04-26-2022 Erythrocyte distribution width (RBC) [Entitic vol] 42.1 fL 35.1-43.9 [facility] Erythrocyte distribution width (RBC) [Ratio] 12.5 % 11.6-14.6 [facility] Immature granulocytes/100 WBC (Bld) 0.400 % 0.0-0.9 [facility] Comment on above: IG% - Immature Granu locytes (promyelocytes, myelocytes and metamyelocytes) > 1% indicates that a LEFT SHIFT is Present. MCH (RBC) [Entitic mass] 30.9 pg 27.0-32.0 [facility] Nucleated RBC/100 WBC (Bld) [Ratio] 0 % 0-5 [facility] MCHC Auto (RBC) [Mass/Vol]Or dered By: Renard Burgos on 04-26-2022 MCHC (RBC) [Mass/Vol] 33.5 g/dL 32-36 [facility] Platelets bldOrdered By: Pet ilzy Loretta on 04-26-2022 Platelets (Bld) [#/Vol] 178 10*3/uL 150-450 [facility] Absolute lymphocyte countOrd ered By: Renard Burgos on 04-18-2022 Lymphocytes Auto (Unsp spec) [#/Vol] 2.03 10*3/uL 0.83-4.51 [facility] Basophil percentageOrdered B y: Renard Burgos on 04-18-2022 Basophils/100 WBC (Bld) 0.6 % 0-1 [facility] Eosinophils/100 WBC (Bld) 0.6 % 0-5 [facility] Neutrophils (Bld) [#/Vol] 4.5 10*3/uL 2.0-7.7 [facility] Neutrophils/100 WBC (Bld) 62.0 % 47-70 [facility] WBC (Bld) [#/Vol] 7.2 10*3/uL 4.4-11.0 [facility] Blood erythrocytes count (nu mber/volume)Ordered By: Renard Burgos on 04-18-2022 RBC (Bld) [#/Vol] 4.67 10*6/uL 4.6-6.2 [facility] Blood hemoglobin measurement (mass/volume)Ordered By: Renard Burgos on 04-18-2022 Hemoglobin (Bld) [Mass/Vol] 14.5 g/dL 13.0-16.5 [facility] Blood lymphocytes/100 leukoc ytesOrdered By: Renard Burgos on 04-18-2022 Lymphocytes/100 WBC (Bld) 28.2 % 19-41 [facility] Blood monocytes/100 leukocyt esOrdered By: Renard Burgos on 04-18-2022 Monocytes/100 WBC (Bld) 8.2 % 0-10 [facility] Blood platelet mean volumeOr dered By: Renard Burgos on 04-18-2022 Platelet mean volume (Bld) [Entitic vol] 11.2 fL 6.2-12.0 [facility] Determination of erythrocyte mean corpuscular volume (MCV)Ordered By: Renard Burgos on 04-18-2022 MCV (RBC) [Entitic vol] 90.8 fL 80-94 [facility] Hematocrit Auto (Bld) [Volum e fraction]Ordered By: Renard Burgos on 04-18-2022 Hematocrit (Bld) [Volume fraction] 42.4 % 40-54 [facility] - Hematology and Cell countsOrdered By: Renard Burgos on 04-18-2022 Erythrocyte distribution width (RBC) [Entitic vol] 41.1 fL 35.1-43.9 [facility] Erythrocyte distribution width (RBC) [Ratio] 12.5 % 11.6-14.6 [facility] Immature granulocytes/100 WBC (Bld) 0.400 % 0.0-0.9 [facility] Comment on above: IG% - Immature Granu locytes (promyelocytes, myelocytes and metamyelocytes) > 1% indicates that a LEFT SHIFT is Present. MCH (RBC) [Entitic mass] 31.0 pg 27.0-32.0 [facility] Nucleated RBC/100 WBC (Bld) [Ratio] 0 % 0-5 [facility] MCHC Auto (RBC) [Mass/Vol]Or dered By: Renard Burgos on 04-18-2022 MCHC (RBC) [Mass/Vol] 34.2 g/dL 32-36 [facility] Platelets bldOrdered By: Lyubov Burgos on 04-18-2022 Platelets (Bld) [#/Vol] 196 10*3/uL 150-450 [facility] Basophil percentageOrdered B y: Renard Burgos on 04-14-2022 Bilirubin [Mass/Vol] 0.40 mg/dL 0.20-1.00 [facility] Comment on above: For patients on eltr ombopag therapy, use of Dimension [place] TBIL is not recommended. Protein [Mass/Vol] 6.3 g/dL 6.4-8.2 [facility] Direct bilirubinOrdered By: Renard Burgos on 04-14-2022 Bilirubin.direct [Mass/Vol] 0.12 mg/dL 0.00-0.30 [facility] - Chemistry and C hemistry - challengeOrdered By: Renard Burgos on 04-14-2022 ALP [Catalytic activity/Vol] 117 U/L 45-117 [facility] ALT [Catalytic activity/Vol] 26 U/L 16-61 [facility] Globulin (S) [Mass/Vol] 3.2 g/dL 2.2-4.2 [facility] Serum or plasma albumin gordy urement (mass/volume)Ordered By: Renard Burgos on 04-14-2022 Albumin [Mass/Vol] 3.1 g/dL 3.2-5.0 [facility] Thin prep Papanicolaou smear with manual screeningOrdered By: Renard Burgos on 04-14-2022 Thin prep Papanicolaou smear with manual screening 12 U/L 15-37 [facility] Absolute lymphocyte countOrd ered By: Renard Burgos on 04-11-2022 Lymphocytes Auto (Unsp spec) [#/Vol] 2.16 10*3/uL 0.83-4.51 [facility] Basophil percentageOrdered B y: Renard Burgos on 04-11-2022 Basophils/100 WBC (Bld) 0.4 % 0-1 [facility] Eosinophils/100 WBC (Bld) 0.4 % 0-5 [facility] Neutrophils (Bld) [#/Vol] 4.2 10*3/uL 2.0-7.7 [facility] Neutrophils/100 WBC (Bld) 61.1 % 47-70 [facility] WBC (Bld) [#/Vol] 6.9 10*3/uL 4.4-11.0 [facility] Blood erythrocytes count (nu mber/volume)Ordered By: Renard Burgos on 04-11-2022 RBC (Bld) [#/Vol] 4.58 10*6/uL 4.6-6.2 [facility] Blood hemoglobin measurement (mass/volume)Ordered By: Renard Burgos on 04-11-2022 Hemoglobin (Bld) [Mass/Vol] 13.9 g/dL 13.0-16.5 [facility] Blood lymphocytes/100 leukoc ytesOrdered By: Renard Burgos on 04-11-2022 Lymphocytes/100 WBC (Bld) 31.2 % 19-41 [facility] Blood monocytes/100 leukocyt esOrdered By: Renard Burgos on 04-11-2022 Monocytes/100 WBC (Bld) 6.5 % 0-10 [facility] Blood platelet mean volumeOr dered By: Renard Burgos on 04-11-2022 Platelet mean volume (Bld) [Entitic vol] 11.4 fL 6.2-12.0 [facility] Determination of erythrocyte mean corpuscular volume (MCV)Ordered By: Renard Burgos on 04-11-2022 MCV (RBC) [Entitic vol] 91.9 fL 80-94 [facility] Hematocrit Auto (Bld) [Volum e fraction]Ordered By: Renard Burgos on 04-11-2022 Hematocrit (Bld) [Volume fraction] 42.1 % 40-54 [facility] - Hematology and Cell countsOrdered By: Renard Burgos on 04-11-2022 Erythrocyte distribution width (RBC) [Entitic vol] 41.5 fL 35.1-43.9 [facility] Erythrocyte distribution width (RBC) [Ratio] 12.3 % 11.6-14.6 [facility] Immature granulocytes/100 WBC (Bld) 0.400 % 0.0-0.9 [facility] Comment on above: IG% - Immature Granu locytes (promyelocytes, myelocytes and metamyelocytes) > 1% indicates that a LEFT SHIFT is Present. MCH (RBC) [Entitic mass] 30.3 pg 27.0-32.0 [facility] Nucleated RBC/100 WBC (Bld) [Ratio] 0 % 0-5 [facility] MCHC Auto (RBC) [Mass/Vol]Or dered By: Renard Burgos on 04-11-2022 MCHC (RBC) [Mass/Vol] 33.0 g/dL 32-36 [facility] Platelets bldOrdered By: Lyubov Burgos on 04-11-2022 Platelets (Bld) [#/Vol] 191 10*3/uL 150-450 [facility] Absolute lymphocyte countOrd ered By: Renard Burgos on 04-04-2022 Lymphocytes Auto (Unsp spec) [#/Vol] 1.99 10*3/uL 0.83-4.51 [facility] Basophil percentageOrdered B y: Renard Burgos on 04-04-2022 Basophils/100 WBC (Bld) 0.4 % 0-1 [facility] Cholesterol [Mass/Vol] 158 mg/dL <200 [facility] Comment on above: <200 mg/dL Desirable 200-240 mg/dL Borderline >240 mg/dL High Risk Eosinophils/100 WBC (Bld) 0.4 % 0-5 [facility] Neutrophils (Bld) [#/Vol] 4.9 10*3/uL 2.0-7.7 [facility] Neutrophils/100 WBC (Bld) 64.2 % 47-70 [facility] Triglyceride [Mass/Vol] 259 mg/dL <199 [facility] Comment on above: The drugs N-Acetylcy steine and Metamizole may falsely depress this assay.Serum Triglycerides Reference Interval Normal <150 mg/dL Borderline high 150 - 199 mg/dL High 200 - 499 mg/dL Very High > or = 500 mg/dL WBC (Bld) [#/Vol] 7.7 10*3/uL 4.4-11.0 [facility] Blood erythrocytes count (nu mber/volume)Ordered By: Renard Burgos on 04-04-2022 RBC (Bld) [#/Vol] 4.63 10*6/uL 4.6-6.2 [facility] Blood hemoglobin measurement (mass/volume)Ordered By: Renard Burgos on 04-04-2022 Hemoglobin (Bld) [Mass/Vol] 14.1 g/dL 13.0-16.5 [facility] Blood lymphocytes/100 leukoc ytesOrdered By: Renard Burgos on 04-04-2022 Lymphocytes/100 WBC (Bld) 25.9 % 19-41 [facility] Blood monocytes/100 leukocyt esOrdered By: Renard Burgos on 04-04-2022 Monocytes/100 WBC (Bld) 8.6 % 0-10 [facility] Blood platelet mean volumeOr dered By: Renard Burgos on 04-04-2022 Platelet mean volume (Bld) [Entitic vol] 11.3 fL 6.2-12.0 [facility] Determination of erythrocyte mean corpuscular volume (MCV)Ordered By: Renard Burgos on 04-04-2022 MCV (RBC) [Entitic vol] 90.7 fL 80-94 [facility] Hematocrit Auto (Bld) [Volum e fraction]Ordered By: Renard Burgos on 04-04-2022 Hematocrit (Bld) [Volume fraction] 42.0 % 40-54 [facility] - Hematology and Cell countsOrdered By: Renard Burgos on 04-04-2022 Erythrocyte distribution width (RBC) [Entitic vol] 41.3 fL 35.1-43.9 [facility] Erythrocyte distribution width (RBC) [Ratio] 12.4 % 11.6-14.6 [facility] Immature granulocytes/100 WBC (Bld) 0.500 % 0.0-0.9 [facility] Comment on above: IG% - Immature Granu locytes (promyelocytes, myelocytes and metamyelocytes) > 1% indicates that a LEFT SHIFT is Present. MCH (RBC) [Entitic mass] 30.5 pg 27.0-32.0 [facility] Nucleated RBC/100 WBC (Bld) [Ratio] 0 % 0-5 [facility] MCHC Auto (RBC) [Mass/Vol]Or dered By: Renard Burgos on 04-04-2022 MCHC (RBC) [Mass/Vol] 33.6 g/dL 32-36 [facility] Platelets bldOrdered By: Lyubov Burgos on 04-04-2022 Platelets (Bld) [#/Vol] 174 10*3/uL 150-450 [facility] Serum or plasma cholesterol in HDL measurement (mass/volume)Ordered By: Renard Burgos on 04-04-2022 Cholesterol in HDL [Mass/Vol] 26 mg/dL >40 [facility] Comment on above: The drugs N-Acetylcy steine and Metamizole may falsely depress this assay. Reference Range HDL <40 mg/dL Low HDL Cholesterol HDL >or= 60 mg/dL High HDL Cholesterol Serum or plasma cholesterol in VLDL measurement (mass/volume)Ordered By: Renard Burgos on 04-04-2022 Cholesterol in VLDL [Mass/Vol] 52 mg/dL 5-40 [facility] Serum or plasma low density lipoprotein (LDL) cholesterol measurement (mass/volume)Ordered By: Renard Burgos on 04-04-2022 Cholesterol in LDL [Mass/Vol] 80 mg/dL 0-130 [facility] Absolute lymphocyte countOrd ered By: Renard Burgos on 03-28-2022 Lymphocytes Auto (Unsp spec) [#/Vol] 2.25 10*3/uL 0.83-4.51 [facility] Basophil percentageOrdered B y: Renard Burgos on 03-28-2022 Basophils/100 WBC (Bld) 0.6 % 0-1 [facility] Eosinophils/100 WBC (Bld) 0.5 % 0-5 [facility] Neutrophils (Bld) [#/Vol] 4.8 10*3/uL 2.0-7.7 [facility] Neutrophils/100 WBC (Bld) 60.5 % 47-70 [facility] WBC (Bld) [#/Vol] 8.0 10*3/uL 4.4-11.0 [facility] Blood erythrocytes count (nu mber/volume)Ordered By: Renard Burgos on 03-28-2022 RBC (Bld) [#/Vol] 4.69 10*6/uL 4.6-6.2 [facility] Blood hemoglobin measurement (mass/volume)Ordered By: Renard Burgos on 03-28-2022 Hemoglobin (Bld) [Mass/Vol] 14.4 g/dL 13.0-16.5 [facility] Blood lymphocytes/100 leukoc ytesOrdered By: Renard Burgos on 03-28-2022 Lymphocytes/100 WBC (Bld) 28.1 % 19-41 [facility] Blood monocytes/100 leukocyt esOrdered By: Renard Burgos on 03-28-2022 Monocytes/100 WBC (Bld) 9.8 % 0-10 [facility] Blood platelet mean volumeOr dered By: Renard Burgos on 03-28-2022 Platelet mean volume (Bld) [Entitic vol] 10.8 fL 6.2-12.0 [facility] Determination of erythrocyte mean corpuscular volume (MCV)Ordered By: Renard Burgos on 03-28-2022 MCV (RBC) [Entitic vol] 92.1 fL 80-94 [facility] Hematocrit Auto (Bld) [Volum e fraction]Ordered By: Renard Burgos on 03-28-2022 Hematocrit (Bld) [Volume fraction] 43.2 % 40-54 [facility] - Hematology and Cell countsOrdered By: Renard Burgos on 03-28-2022 Erythrocyte distribution width (RBC) [Entitic vol] 42.0 fL 35.1-43.9 [facility] Erythrocyte distribution width (RBC) [Ratio] 12.5 % 11.6-14.6 [facility] Immature granulocytes/100 WBC (Bld) 0.500 % 0.0-0.9 [facility] Comment on above: IG% - Immature Granu locytes (promyelocytes, myelocytes and metamyelocytes) > 1% indicates that a LEFT SHIFT is Present. MCH (RBC) [Entitic mass] 30.7 pg 27.0-32.0 [facility] Nucleated RBC/100 WBC (Bld) [Ratio] 0 % 0-5 [facility] MCHC Auto (RBC) [Mass/Vol]Or dered By: Renard Burgos on 03-28-2022 MCHC (RBC) [Mass/Vol] 33.3 g/dL 32-36 [facility] Platelets bldOrdered By: Lyubov Burgos on 03-28-2022 Platelets (Bld) [#/Vol] 207 10*3/uL 150-450 [facility] Absolute lymphocyte countOrd ered By: Renard Burgos on 03-21-2022 Lymphocytes Auto (Unsp spec) [#/Vol] 1.98 10*3/uL 0.83-4.51 [facility] Basophil percentageOrdered B y: Renard Burgos on 03-21-2022 Basophils/100 WBC (Bld) 0.5 % 0-1 [facility] Eosinophils/100 WBC (Bld) 0.5 % 0-5 [facility] Neutrophils (Bld) [#/Vol] 4.9 10*3/uL 2.0-7.7 [facility] Neutrophils/100 WBC (Bld) 63.6 % 47-70 [facility] WBC (Bld) [#/Vol] 7.7 10*3/uL 4.4-11.0 [facility] Blood erythrocytes count (nu mber/volume)Ordered By: Renard Burgos on 03-21-2022 RBC (Bld) [#/Vol] 4.82 10*6/uL 4.6-6.2 [facility] Blood hemoglobin measurement (mass/volume)Ordered By: Renard Burgos on 03-21-2022 Hemoglobin (Bld) [Mass/Vol] 14.9 g/dL 13.0-16.5 [facility] Blood lymphocytes/100 leukoc ytesOrdered By: Renard Burgos on 03-21-2022 Lymphocytes/100 WBC (Bld) 25.7 % 19-41 [facility] Blood monocytes/100 leukocyt esOrdered By: Renard Burgos on 03-21-2022 Monocytes/100 WBC (Bld) 9.3 % 0-10 [facility] Blood platelet mean volumeOr dered By: Renard Burgos on 03-21-2022 Platelet mean volume (Bld) [Entitic vol] 10.8 fL 6.2-12.0 [facility] Determination of erythrocyte mean corpuscular volume (MCV)Ordered By: Renard Burgos on 03-21-2022 MCV (RBC) [Entitic vol] 90.7 fL 80-94 [facility] Hematocrit Auto (Bld) [Volum e fraction]Ordered By: Renard Burgos on 03-21-2022 Hematocrit (Bld) [Volume fraction] 43.7 % 40-54 [facility] - Hematology and Cell countsOrdered By: Renard Burgos on 03-21-2022 Erythrocyte distribution width (RBC) [Entitic vol] 40.8 fL 35.1-43.9 [facility] Erythrocyte distribution width (RBC) [Ratio] 12.4 % 11.6-14.6 [facility] Immature granulocytes/100 WBC (Bld) 0.400 % 0.0-0.9 [facility] Comment on above: IG% - Immature Granu locytes (promyelocytes, myelocytes and metamyelocytes) > 1% indicates that a LEFT SHIFT is Present. MCH (RBC) [Entitic mass] 30.9 pg 27.0-32.0 [facility] Nucleated RBC/100 WBC (Bld) [Ratio] 0 % 0-5 [facility] MCHC Auto (RBC) [Mass/Vol]Or dered By: Renard Burgos on 03-21-2022 MCHC (RBC) [Mass/Vol] 34.1 g/dL 32-36 [facility] Platelets bldOrdered By: Pet lizy Loretta on 03-21-2022 Platelets (Bld) [#/Vol] 186 10*3/uL 150-450 [facility] Absolute lymphocyte countOrd ered By: Renard Burgos on 03-14-2022 Lymphocytes Auto (Unsp spec) [#/Vol] 2.18 10*3/uL 0.83-4.51 [facility] Basophil percentageOrdered B y: Renard Burgos on 03-14-2022 Basophils/100 WBC (Bld) 0.4 % 0-1 [facility] Eosinophils/100 WBC (Bld) 0.6 % 0-5 [facility] Neutrophils (Bld) [#/Vol] 4.3 10*3/uL 2.0-7.7 [facility] Neutrophils/100 WBC (Bld) 58.8 % 47-70 [facility] WBC (Bld) [#/Vol] 7.3 10*3/uL 4.4-11.0 [facility] Blood erythrocytes count (nu mber/volume)Ordered By: Renard Burgos on 03-14-2022 RBC (Bld) [#/Vol] 4.80 10*6/uL 4.6-6.2 [facility] Blood hemoglobin measurement (mass/volume)Ordered By: Renard Burgos on 03-14-2022 Hemoglobin (Bld) [Mass/Vol] 14.5 g/dL 13.0-16.5 [facility] Blood lymphocytes/100 leukoc ytesOrdered By: Renard Burgos on 03-14-2022 Lymphocytes/100 WBC (Bld) 30.1 % 19-41 [facility] Blood monocytes/100 leukocyt esOrdered By: Renard Burgos on 03-14-2022 Monocytes/100 WBC (Bld) 9.5 % 0-10 [facility] Blood platelet mean volumeOr dered By: Renard Burgos on 03-14-2022 Platelet mean volume (Bld) [Entitic vol] 11.0 fL 6.2-12.0 [facility] Determination of erythrocyte mean corpuscular volume (MCV)Ordered By: Renard Burgos on 03-14-2022 MCV (RBC) [Entitic vol] 91.5 fL 80-94 [facility] Hematocrit Auto (Bld) [Volum e fraction]Ordered By: Renard Burgos on 03-14-2022 Hematocrit (Bld) [Volume fraction] 43.9 % 40-54 [facility] - Hematology and Cell countsOrdered By: Renard Burgos on 03-14-2022 Erythrocyte distribution width (RBC) [Entitic vol] 41.1 fL 35.1-43.9 [facility] Erythrocyte distribution width (RBC) [Ratio] 12.4 % 11.6-14.6 [facility] Immature granulocytes/100 WBC (Bld) 0.600 % 0.0-0.9 [facility] Comment on above: IG% - Immature Granu locytes (promyelocytes, myelocytes and metamyelocytes) > 1% indicates that a LEFT SHIFT is Present. MCH (RBC) [Entitic mass] 30.2 pg 27.0-32.0 [facility] Nucleated RBC/100 WBC (Bld) [Ratio] 0 % 0-5 [facility] MCHC Auto (RBC) [Mass/Vol]Or dered By: Renard Burgos on 03-14-2022 MCHC (RBC) [Mass/Vol] 33.0 g/dL 32-36 [facility] Platelets bldOrdered By: Lyubov Burgos on 03-14-2022 Platelets (Bld) [#/Vol] 201 10*3/uL 150-450 [facility] Absolute lymphocyte countOrd ered By: Renard Burgos on 2022 Lymphocytes Auto (Unsp spec) [#/Vol] 1.97 10*3/uL 0.83-4.51 [facility] Basophil percentageOrdered B y: Renard Burgos on 2022 Basophils/100 WBC (Bld) 0.6 % 0-1 [facility] Eosinophils/100 WBC (Bld) 0.4 % 0-5 [facility] Neutrophils (Bld) [#/Vol] 4.3 10*3/uL 2.0-7.7 [facility] Neutrophils/100 WBC (Bld) 61.3 % 47-70 [facility] WBC (Bld) [#/Vol] 7.0 10*3/uL 4.4-11.0 [facility] Blood erythrocytes count (nu mber/volume)Ordered By: Renard Burgos on 2022 RBC (Bld) [#/Vol] 4.78 10*6/uL 4.6-6.2 [facility] Blood hemoglobin measurement (mass/volume)Ordered By: Renard Burgos on 2022 Hemoglobin (Bld) [Mass/Vol] 14.4 g/dL 13.0-16.5 [facility] Blood lymphocytes/100 leukoc ytesOrdered By: Renard Burgos on 2022 Lymphocytes/100 WBC (Bld) 28.3 % 19-41 [facility] Blood monocytes/100 leukocyt esOrdered By: Renard Burgos on 2022 Monocytes/100 WBC (Bld) 9.1 % 0-10 [facility] Blood platelet mean volumeOr dered By: Renard Burgos on 2022 Platelet mean volume (Bld) [Entitic vol] 11.1 fL 6.2-12.0 [facility] Determination of erythrocyte mean corpuscular volume (MCV)Ordered By: Renard Burgos on 2022 MCV (RBC) [Entitic vol] 91.2 fL 80-94 [facility] Hematocrit Auto (Bld) [Volum e fraction]Ordered By: Renard Burgos on 2022 Hematocrit (Bld) [Volume fraction] 43.6 % 40-54 [facility] - Hematology and Cell countsOrdered By: Renard Burgos on 2022 Erythrocyte distribution width (RBC) [Entitic vol] 42.0 fL 35.1-43.9 [facility] Erythrocyte distribution width (RBC) [Ratio] 12.6 % 11.6-14.6 [facility] Immature granulocytes/100 WBC (Bld) 0.300 % 0.0-0.9 [facility] Comment on above: IG% - Immature Granu locytes (promyelocytes, myelocytes and metamyelocytes) > 1% indicates that a LEFT SHIFT is Present. MCH (RBC) [Entitic mass] 30.1 pg 27.0-32.0 [facility] Nucleated RBC/100 WBC (Bld) [Ratio] 0 % 0-5 [facility] MCHC Auto (RBC) [Mass/Vol]Or dered By: Renard Burgos on 2022 MCHC (RBC) [Mass/Vol] 33.0 g/dL 32-36 [facility] Platelets bldOrdered By: Lyubov Burgos on 2022 Platelets (Bld) [#/Vol] 210 10*3/uL 150-450 [facility] Absolute lymphocyte countOrd ered By: Renard Burgos on 02-28-2022 Lymphocytes Auto (Unsp spec) [#/Vol] 1.85 10*3/uL 0.83-4.51 [facility] Basophil percentageOrdered B y: Renard Burgos on 02-28-2022 Basophils/100 WBC (Bld) 0.4 % 0-1 [facility] Eosinophils/100 WBC (Bld) 0.4 % 0-5 [facility] Neutrophils (Bld) [#/Vol] 5.3 10*3/uL 2.0-7.7 [facility] Neutrophils/100 WBC (Bld) 67.8 % 47-70 [facility] WBC (Bld) [#/Vol] 7.8 10*3/uL 4.4-11.0 [facility] Blood erythrocytes count (nu mber/volume)Ordered By: Renard Burgos on 02-28-2022 RBC (Bld) [#/Vol] 4.58 10*6/uL 4.6-6.2 [facility] Blood hemoglobin measurement (mass/volume)Ordered By: Renard Burgos on 02-28-2022 Hemoglobin (Bld) [Mass/Vol] 14.3 g/dL 13.0-16.5 [facility] Blood lymphocytes/100 leukoc ytesOrdered By: Renard Burgos on 02-28-2022 Lymphocytes/100 WBC (Bld) 23.8 % 19-41 [facility] Blood monocytes/100 leukocyt esOrdered By: Renard Burgos on 02-28-2022 Monocytes/100 WBC (Bld) 7.2 % 0-10 [facility] Blood platelet mean volumeOr dered By: Renard Burgos on 02-28-2022 Platelet mean volume (Bld) [Entitic vol] 10.8 fL 6.2-12.0 [facility] Determination of erythrocyte mean corpuscular volume (MCV)Ordered By: Renard Burgos on 02-28-2022 MCV (RBC) [Entitic vol] 91.5 fL 80-94 [facility] Hematocrit Auto (Bld) [Volum e fraction]Ordered By: Renard Burgos on 02-28-2022 Hematocrit (Bld) [Volume fraction] 41.9 % 40-54 [facility] - Hematology and Cell countsOrdered By: Renard Burgos on 02-28-2022 Erythrocyte distribution width (RBC) [Entitic vol] 42.2 fL 35.1-43.9 [facility] Erythrocyte distribution width (RBC) [Ratio] 12.7 % 11.6-14.6 [facility] Immature granulocytes/100 WBC (Bld) 0.400 % 0.0-0.9 [facility] Comment on above: IG% - Immature Granu locytes (promyelocytes, myelocytes and metamyelocytes) > 1% indicates that a LEFT SHIFT is Present. MCH (RBC) [Entitic mass] 31.2 pg 27.0-32.0 [facility] Nucleated RBC/100 WBC (Bld) [Ratio] 0 % 0-5 [facility] MCHC Auto (RBC) [Mass/Vol]Or dered By: Renard Burgos on 02-28-2022 MCHC (RBC) [Mass/Vol] 34.1 g/dL 32-36 [facility] Platelets bldOrdered By: Lyubov Burgos on 02-28-2022 Platelets (Bld) [#/Vol] 202 10*3/uL 150-450 [facility] Absolute lymphocyte countOrd ered By: Renard Burgos on 02-21-2022 Lymphocytes Auto (Unsp spec) [#/Vol] 1.93 10*3/uL 0.83-4.51 [facility] Basophil percentageOrdered B y: Renard Burgos on 02-21-2022 Basophils/100 WBC (Bld) 0.4 % 0-1 [facility] Eosinophils/100 WBC (Bld) 0.4 % 0-5 [facility] Neutrophils (Bld) [#/Vol] 4.6 10*3/uL 2.0-7.7 [facility] Neutrophils/100 WBC (Bld) 63.4 % 47-70 [facility] WBC (Bld) [#/Vol] 7.2 10*3/uL 4.4-11.0 [facility] Blood erythrocytes count (nu mber/volume)Ordered By: Renard Burgos on 02-21-2022 RBC (Bld) [#/Vol] 4.54 10*6/uL 4.6-6.2 [facility] Blood hemoglobin measurement (mass/volume)Ordered By: Renard Burgos on 02-21-2022 Hemoglobin (Bld) [Mass/Vol] 14.1 g/dL 13.0-16.5 [facility] Blood lymphocytes/100 leukoc ytesOrdered By: Renard Burgos on 02-21-2022 Lymphocytes/100 WBC (Bld) 26.7 % 19-41 [facility] Blood monocytes/100 leukocyt esOrdered By: Renard Burgos on 02-21-2022 Monocytes/100 WBC (Bld) 8.8 % 0-10 [facility] [facility] Blood platelet mean volumeOr dered By: Renard Burgos on 02-21-2022 Platelet mean volume (Bld) [Entitic vol] 11.1 fL 6.2-12.0 [facility] Determination of erythrocyte mean corpuscular volume (MCV)Ordered By: Renard Burgos on 02-21-2022 MCV (RBC) [Entitic vol] 91.4 fL 80-94 [facility] Hematocrit Auto (Bld) [Volum e fraction]Ordered By: Renard Burgos on 02-21-2022 Hematocrit (Bld) [Volume fraction] 41.5 % 40-54 [facility] Laboratory - Hematology and Cell countsOrdered By: Renard Burgos on 02-21-2022 Erythrocyte distribution width (RBC) [Entitic vol] 41.9 fL 35.1-43.9 [facility] Erythrocyte distribution width (RBC) [Ratio] 12.6 % 11.6-14.6 [facility] Immature granulocytes/100 WBC (Bld) 0.300 % 0.0-0.9 [facility] Comment on above: IG% - Immature Granu locytes (promyelocytes, myelocytes and metamyelocytes) > 1% indicates that a LEFT SHIFT is Present. MCH (RBC) [Entitic mass] 31.1 pg 27.0-32.0 [facility] Nucleated RBC/100 WBC (Bld) [Ratio] 0 % 0-5 [facility] MCHC Auto (RBC) [Mass/Vol]Or dered By: Renard Burgos on 02-21-2022 MCHC (RBC) [Mass/Vol] 34.0 g/dL 32-36 [facility] Platelets bldOrdered By: [facility] on 02-21-2022 Platelets (Bld) [#/Vol] 189 10*3/uL 150-450 [facility] Absolute lymphocyte countOrd ered By: Renard Burgos on 02-14-2022 Lymphocytes Auto (Unsp spec) [#/Vol] 2.00 10*3/uL 0.83-4.51 [facility] Basophil percentageOrdered B y: Renard Burgos on 02-14-2022 Basophils/100 WBC (Bld) 0.6 % 0-1 [facility] Eosinophils/100 WBC (Bld) 0.3 % 0-5 [facility] Neutrophils (Bld) [#/Vol] 6.4 10*3/uL 2.0-7.7 [facility] Neutrophils/100 WBC (Bld) 69.5 % 47-70 [facility] WBC (Bld) [#/Vol] 9.3 10*3/uL 4.4-11.0 [facility] Blood erythrocytes count (nu mber/volume)Ordered By: Renard Burgos on 02-14-2022 RBC (Bld) [#/Vol] 4.65 10*6/uL 4.6-6.2 [facility] Blood hemoglobin measurement (mass/volume)Ordered By: Renard Burgos on 02-14-2022 Hemoglobin (Bld) [Mass/Vol] 14.6 g/dL 13.0-16.5 [facility] Blood lymphocytes/100 leukoc ytesOrdered By: Renard Burgos on 02-14-2022 Lymphocytes/100 WBC (Bld) 21.6 % 19-41 [facility] Blood monocytes/100 leukocyt esOrdered By: Renard Burgos on 02-14-2022 Monocytes/100 WBC (Bld) 7.6 % 0-10 [facility] Blood platelet mean volumeOr dered By: Renard Burgos on 02-14-2022 Platelet mean volume (Bld) [Entitic vol] 11.1 fL 6.2-12.0 [facility] Determination of erythrocyte mean corpuscular volume (MCV)Ordered By: Renard Burgos on 02-14-2022 MCV (RBC) [Entitic vol] 91.8 fL 80-94 [facility] Hematocrit Auto (Bld) [Volum e fraction]Ordered By: Renard Burgos on 02-14-2022 Hematocrit (Bld) [Volume fraction] 42.7 % 40-54 [facility] Laboratory - Hematology and Cell countsOrdered By: Renard Burgos on 02-14-2022 Erythrocyte distribution width (RBC) [Entitic vol] 43.7 fL 35.1-43.9 [facility] Erythrocyte distribution width (RBC) [Ratio] 13.0 % 11.6-14.6 [facility] Immature granulocytes/100 WBC (Bld) 0.400 % 0.0-0.9 [facility] Comment on above: IG% - Immature Granu locytes (promyelocytes, myelocytes and metamyelocytes) > 1% indicates that a LEFT SHIFT is Present. MCH (RBC) [Entitic mass] 31.4 pg 27.0-32.0 [facility] Nucleated RBC/100 WBC (Bld) [Ratio] 0 % 0-5 [facility] MCHC Auto (RBC) [Mass/Vol]Or dered By: Renard Burgos on 02-14-2022 MCHC (RBC) [Mass/Vol] 34.2 g/dL 32-36 [facility] Platelets bldOrdered By: Lyubov Burgos on 02-14-2022 Platelets (Bld) [#/Vol] 187 10*3/uL 150-450 [facility] Absolute lymphocyte countOrd ered By: Renard Burgos on 02-07-2022 Lymphocytes Auto (Unsp spec) [#/Vol] 1.97 10*3/uL 0.83-4.51 [facility] Basophil percentageOrdered B y: Renard Burgos on 02-07-2022 Basophils/100 WBC (Bld) 0.4 % 0-1 [facility] Eosinophils/100 WBC (Bld) 0.3 % 0-5 [facility] Neutrophils (Bld) [#/Vol] 4.2 10*3/uL 2.0-7.7 [facility] Neutrophils/100 WBC (Bld) 61.8 % 47-70 [facility] WBC (Bld) [#/Vol] 6.8 10*3/uL 4.4-11.0 [facility] Blood erythrocytes count (nu mber/volume)Ordered By: Renard Burgos on 02-07-2022 RBC (Bld) [#/Vol] 4.86 10*6/uL 4.6-6.2 [facility] Blood hemoglobin measurement (mass/volume)Ordered By: Renard Burgos on 02-07-2022 Hemoglobin (Bld) [Mass/Vol] 15.4 g/dL 13.0-16.5 [facility] Blood lymphocytes/100 leukoc ytesOrdered By: Renard Burgos on 02-07-2022 Lymphocytes/100 WBC (Bld) 29.1 % 19-41 [facility] Blood monocytes/100 leukocyt esOrdered By: Renard Burgos on 02-07-2022 Monocytes/100 WBC (Bld) 8.1 % 0-10 [facility] Blood platelet mean volumeOr dered By: Renard Burgos on 02-07-2022 Platelet mean volume (Bld) [Entitic vol] 11.0 fL 6.2-12.0 [facility] Determination of erythrocyte mean corpuscular volume (MCV)Ordered By: Renard Burgos on 02-07-2022 MCV (RBC) [Entitic vol] 92.6 fL 80-94 [facility] Hematocrit Auto (Bld) [Volum e fraction]Ordered By: Renard Burgos on 02-07-2022 Hematocrit (Bld) [Volume fraction] 45.0 % 40-54 [facility] Laboratory - Hematology and Cell countsOrdered By: Renard Burgos on 02-07-2022 Erythrocyte distribution width (RBC) [Entitic vol] 43.1 fL 35.1-43.9 [facility] Erythrocyte distribution width (RBC) [Ratio] 12.7 % 11.6-14.6 [facility] Immature granulocytes/100 WBC (Bld) 0.300 % 0.0-0.9 [facility] Comment on above: IG% - Immature Granu locytes (promyelocytes, myelocytes and metamyelocytes) > 1% indicates that a LEFT SHIFT is Present. MCH (RBC) [Entitic mass] 31.7 pg 27.0-32.0 [facility] Nucleated RBC/100 WBC (Bld) [Ratio] 0 % 0-5 [facility] MCHC Auto (RBC) [Mass/Vol]Or dered By: Renard Burgos on 02-07-2022 MCHC (RBC) [Mass/Vol] 34.2 g/dL 32-36 [facility] Platelets bldOrdered By: Lyubov Burgos on 02-07-2022 Platelets (Bld) [#/Vol] 196 10*3/uL 150-450 [facility] Absolute lymphocyte countOrd ered By: Renard Burgos on 01-31-2022 Lymphocytes Auto (Unsp spec) [#/Vol] 2.19 10*3/uL 0.83-4.51 [facility] Basophil percentageOrdered B y: Renard Burgos on 01-31-2022 Basophils/100 WBC (Bld) 0.3 % 0-1 [facility] Eosinophils/100 WBC (Bld) 0.2 % 0-5 [facility] Neutrophils (Bld) [#/Vol] 5.7 10*3/uL 2.0-7.7 [facility] Neutrophils/100 WBC (Bld) 64.9 % 47-70 [facility] WBC (Bld) [#/Vol] 8.8 10*3/uL 4.4-11.0 [facility] Blood erythrocytes count (nu mber/volume)Ordered By: Renard Burgos on 01-31-2022 RBC (Bld) [#/Vol] 4.81 10*6/uL 4.6-6.2 [facility] Blood hemoglobin measurement (mass/volume)Ordered By: Renard Burgos on 01-31-2022 Hemoglobin (Bld) [Mass/Vol] 14.9 g/dL 13.0-16.5 [facility] Blood lymphocytes/100 leukoc ytesOrdered By: Renard Burgos on 01-31-2022 Lymphocytes/100 WBC (Bld) 24.9 % 19-41 [facility] Blood monocytes/100 leukocyt esOrdered By: Renard Burgos on 01-31-2022 Monocytes/100 WBC (Bld) 9.2 % 0-10 [facility] Blood platelet mean volumeOr dered By: Renard Burgos on 01-31-2022 Platelet mean volume (Bld) [Entitic vol] 11.0 fL 6.2-12.0 [facility] Determination of erythrocyte mean corpuscular volume (MCV)Ordered By: Renard Burgos on 01-31-2022 MCV (RBC) [Entitic vol] 92.9 fL 80-94 [facility] Hematocrit Auto (Bld) [Volum e fraction]Ordered By: Renard Burgos on 01-31-2022 Hematocrit (Bld) [Volume fraction] 44.7 % 40-54 [facility] - Hematology and Cell countsOrdered By: Renard Burgos on 01-31-2022 Erythrocyte distribution width (RBC) [Entitic vol] 42.9 fL 35.1-43.9 [facility] Erythrocyte distribution width (RBC) [Ratio] 12.6 % 11.6-14.6 [facility] Immature granulocytes/100 WBC (Bld) 0.500 % 0.0-0.9 [facility] Comment on above: IG% - Immature Granu locytes (promyelocytes, myelocytes and metamyelocytes) > 1% indicates that a LEFT SHIFT is Present. MCH (RBC) [Entitic mass] 31.0 pg 27.0-32.0 [facility] Nucleated RBC/100 WBC (Bld) [Ratio] 0 % 0-5 [facility] MCHC Auto (RBC) [Mass/Vol]Or dered By: Renard Burgos on 01-31-2022 MCHC (RBC) [Mass/Vol] 33.3 g/dL 32-36 [facility] Platelets bldOrdered By: Lyubov Burgos on 01-31-2022 Platelets (Bld) [#/Vol] 204 10*3/uL 150-450 [facility] Absolute lymphocyte countOrd ered By: Renard Burgos on 01-24-2022 Lymphocytes Auto (Unsp spec) [#/Vol] 1.82 10*3/uL 0.83-4.51 [facility] Basophil percentageOrdered B y: Renard Burgos on 01-24-2022 Basophils/100 WBC (Bld) 0.3 % 0-1 [facility] Eosinophils/100 WBC (Bld) 0.3 % 0-5 [facility] Neutrophils (Bld) [#/Vol] 6.1 10*3/uL 2.0-7.7 [facility] Neutrophils/100 WBC (Bld) 69.9 % 47-70 [facility] WBC (Bld) [#/Vol] 8.7 10*3/uL 4.4-11.0 [facility] Blood erythrocytes count (nu mber/volume)Ordered By: Renard Burgos on 01-24-2022 RBC (Bld) [#/Vol] 4.74 10*6/uL 4.6-6.2 [facility] Blood hemoglobin measurement (mass/volume)Ordered By: Renard Burgos on 01-24-2022 Hemoglobin (Bld) [Mass/Vol] 14.5 g/dL 13.0-16.5 [facility] Blood lymphocytes/100 leukoc ytesOrdered By: Renard Burgos on 01-24-2022 Lymphocytes/100 WBC (Bld) 20.9 % 19-41 [facility] Blood monocytes/100 leukocyt esOrdered By: Renard Burgos on 01-24-2022 Monocytes/100 WBC (Bld) 8.4 % 0-10 [facility] Blood platelet mean volumeOr dered By: Renard Burgos on 01-24-2022 Platelet mean volume (Bld) [Entitic vol] 10.9 fL 6.2-12.0 [facility] Determination of erythrocyte mean corpuscular volume (MCV)Ordered By: Renard Burgos on 01-24-2022 MCV (RBC) [Entitic vol] 92.0 fL 80-94 [facility] Hematocrit Auto (Bld) [Volum e fraction]Ordered By: Renard Burgos on 01-24-2022 Hematocrit (Bld) [Volume fraction] 43.6 % 40-54 [facility] - Hematology and Cell countsOrdered By: Renard Burgos on 01-24-2022 Erythrocyte distribution width (RBC) [Entitic vol] 42.3 fL 35.1-43.9 [facility] Erythrocyte distribution width (RBC) [Ratio] 12.5 % 11.6-14.6 [facility] Immature granulocytes/100 WBC (Bld) 0.200 % 0.0-0.9 [facility] Comment on above: IG% - Immature Granu locytes (promyelocytes, myelocytes and metamyelocytes) > 1% indicates that a LEFT SHIFT is Present. MCH (RBC) [Entitic mass] 30.6 pg 27.0-32.0 [facility] Nucleated RBC/100 WBC (Bld) [Ratio] 0 % 0-5 [facility] MCHC Auto (RBC) [Mass/Vol]Or dered By: Renard Burgos on 01-24-2022 MCHC (RBC) [Mass/Vol] 33.3 g/dL 32-36 [facility] Platelets bldOrdered By: Lyubov Burgos on 01-24-2022 Platelets (Bld) [#/Vol] 192 10*3/uL 150-450 [facility] Absolute lymphocyte counton 01-17-2022 Lymphocytes Auto (Unsp spec) [#/Vol] 1.89 10*3/uL 0.83-4.51 [facility] Work Phone: [phone] Basophil percentageon 2021 Basophils/100 WBC (Bld) 0.4 % 0-1 [facility] Work Phone: Eosinophils/100 WBC (Bld) 0.3 % 0-5 [facility] Work Phone: Neutrophils (Bld) [#/Vol] 4.4 10*3/uL 2.0-7.7 [facility] Work Phone: Neutrophils/100 WBC (Bld) 62.4 % 47-70 [facility] Work Phone: WBC (Bld) [#/Vol] 7.0 10*3/uL 4.4-11.0 [facility] Work Phone: Blood erythrocytes count (nu mber/volume)on 01-17-2022 RBC (Bld) [#/Vol] 4.64 10*6/uL 4.6-6.2 [facility]: Blood hemoglobin measurement (mass/volume)on 01-17-2022 Hemoglobin (Bld) [Mass/Vol] 14.1 g/dL 13.0-16.5 [facility] Work Phone: Blood lymphocytes/100 leukoc yteson 01-17-2022 Lymphocytes/100 WBC (Bld) 27.0 % 19-41 [facility] Work Phone: Blood monocytes/100 leukocyt eson 01-17-2022 Monocytes/100 WBC (Bld) 9.3 % 0-10 [facility] Work Phone: Blood platelet mean volumeon 01-17-2022 Platelet mean volume (Bld) [Entitic vol] 11.1 fL 6.2-12.0 [facility] Work Phone: Determination of erythrocyte mean corpuscular volume (MCV)on 01-17-2022 MCV (RBC) [Entitic vol] 91.8 fL 80-94 [facility] Work Phone: Hematocrit Auto (Bld) [Volum e fraction]on 01-17-2022 Hematocrit (Bld) [Volume fraction] 42.6 % 40-54 [facility] Work Phone: Laboratory - Hematology and Cell countson 01-17-2022 Erythrocyte distribution width (RBC) [Entitic vol] 41.5 fL 35.1-43.9 [facility] Work Phone: Erythrocyte distribution width (RBC) [Ratio] 12.5 % 11.6-14.6 [facility] Work Phone: Immature granulocytes/100 WBC (Bld) 0.600 % 0.0-0.9 [facility] Work Phone: Comment on above: IG% - Immature Granu locytes (promyelocytes, myelocytes and metamyelocytes) > 1% indicates that a LEFT SHIFT is Present. MCH (RBC) [Entitic mass] 30.4 pg 27.0-32.0 [facility] Work Phone: Nucleated RBC/100 WBC (Bld) [Ratio] 0 % 0-5 [facility] Work Phone: MCHC Auto (RBC) [Mass/Vol]on 01-17-2022 MCHC (RBC) [Mass/Vol] 33.1 g/dL 32-36 [facility] Work Phone: Platelets bldon 01-17-2022 Platelets (Bld) [#/Vol] 200 10*3/uL 150-450 [facility] Work Phone: [phone] Absolute lymphocyte counton 01-10-2022 Lymphocytes Auto (Unsp spec) [#/Vol] 2.07 10*3/uL 0.83-4.51 [facility] Work Phone: Basophil percentageon 2021 Basophils/100 WBC (Bld) 0.6 % 0-1 [facility] Work Phone: Eosinophils/100 WBC (Bld) 0.3 % 0-5 [facility] Work Phone: Neutrophils (Bld) [#/Vol] 4.2 10*3/uL 2.0-7.7 [facility] Work Phone: Neutrophils/100 WBC (Bld) 59.2 % 47-70 [facility] Work Phone: WBC (Bld) [#/Vol] 7.0 10*3/uL 4.4-11.0 [facility] Work [facility]: Blood erythrocytes count (nu mber/volume)on 01-10-2022 RBC (Bld) [#/Vol] 4.83 10*6/uL 4.6-6.2 [facility] Work Phone: Blood hemoglobin measurement (mass/volume)on 01-10-2022 Hemoglobin (Bld) [Mass/Vol] 14.8 g/dL 13.0-16.5 [facility] Work Phone: Blood lymphocytes/100 leukoc yteson 01-10-2022 Lymphocytes/100 WBC (Bld) 29.5 % 19-41 [facility] Work Phone: Blood monocytes/100 leukocyt eson 01-10-2022 Monocytes/100 WBC (Bld) 10.1 % 0-10 [facility] Work Phone: Blood platelet mean volumeon 01-10-2022 Platelet mean volume (Bld) [Entitic vol] 10.8 fL 6.2-12.0 [facility] Work Phone: Determination of erythrocyte mean corpuscular volume (MCV)on 01-10-2022 MCV (RBC) [Entitic vol] 97.5 fL 80-94 [facility] Work Phone: Hematocrit Auto (Bld) [Volum e fraction]on 01-10-2022 Hematocrit (Bld) [Volume fraction] 47.1 % 40-54 [facility] Work Phone: Laboratory - Hematology and Cell countson 01-10-2022 Erythrocyte distribution width (RBC) [Entitic vol] 44.9 fL 35.1-43.9 [facility] Work Phone: Erythrocyte distribution width (RBC) [Ratio] 12.7 % 11.6-14.6 [facility] Work Phone: Immature granulocytes/100 WBC (Bld) 0.300 % 0.0-0.9 [facility] Work Phone: Comment on above: IG% - Immature Granu locytes (promyelocytes, myelocytes and metamyelocytes) > 1% indicates that a LEFT SHIFT is Present. MCH (RBC) [Entitic mass] 30.6 pg 27.0-32.0 [facility] Work Phone: Nucleated RBC/100 WBC (Bld) [Ratio] 0 % 0-5 [facility] Work Phone: MCHC Auto (RBC) [Mass/Vol]on 01-10-2022 MCHC (RBC) [Mass/Vol] 31.4 g/dL 32-36 [facility] Work Phone: [phone] Platelets bldon 01-10-2022 Platelets (Bld) [#/Vol] 169 10*3/uL 150-450 [facility] Work Phone: [phone] Absolute lymphocyte counton 01-04-2022 Lymphocytes Auto (Unsp spec) [#/Vol] 1.84 10*3/uL 0.83-4.51 [facility] Work Phone: Basophil percentageon 2021 Basophils/100 WBC (Bld) 0.3 % 0-1 [facility] Work Phone: Eosinophils/100 WBC (Bld) 0.3 % 0-5 [facility] Work Phone: Neutrophils (Bld) [#/Vol] 4.8 10*3/uL 2.0-7.7 [facility] Work Phone: Neutrophils/100 WBC (Bld) 64.8 % 47-70 [facility] Work Phone: [phone] WBC (Bld) [#/Vol] 7.4 10*3/uL 4.4-11.0 [facility] Work Phone: Blood erythrocytes count (nu mber/volume)on 01-04-2022 RBC (Bld) [#/Vol] 4.67 10*6/uL 4.6-6.2 [facility] Work Phone: Blood hemoglobin measurement (mass/volume)on 01-04-2022 Hemoglobin (Bld) [Mass/Vol] 14.2 g/dL 13.0-16.5 [facility] Work Phone: [phone] Blood lymphocytes/100 leukoc yteson 01-04-2022 Lymphocytes/100 WBC (Bld) 25.0 % 19-41 [facility] Work Phone: Blood monocytes/100 leukocyt eson 01-04-2022 Monocytes/100 WBC (Bld) 9.1 % 0-10 [facility] Work Phone: Blood platelet mean volumeon 01-04-2022 Platelet mean volume (Bld) [Entitic vol] 11.0 fL 6.2-12.0 [facility] Work Phone: Determination of erythrocyte mean corpuscular volume (MCV)on 01-04-2022 MCV (RBC) [Entitic vol] 91.0 fL 80-94 [facility] Work Phone: Hematocrit Auto (Bld) [Volum e fraction]on 01-04-2022 Hematocrit (Bld) [Volume fraction] 42.5 % 40-54 [facility] Work Phone: Laboratory - Hematology and Cell countson 01-04-2022 Erythrocyte distribution width (RBC) [Entitic vol] 41.4 fL 35.1-43.9 [facility] Work Phone: Erythrocyte distribution width (RBC) [Ratio] 12.7 % 11.6-14.6 [facility] Work Phone: Immature granulocytes/100 WBC (Bld) 0.500 % 0.0-0.9 [facility] Work Phone: Comment on above: IG% - Immature Granu locytes (promyelocytes, myelocytes and metamyelocytes) > 1% indicates that a LEFT SHIFT is Present. MCH (RBC) [Entitic mass] 30.4 pg 27.0-32.0 [facility] Work Phone: Nucleated RBC/100 WBC (Bld) [Ratio] 0 % 0-5 [facility] Work Phone: MCHC Auto (RBC) [Mass/Vol]on 01-04-2022 MCHC (RBC) [Mass/Vol] 33.4 g/dL 32-36 [facility] Work Phone: Platelets bldon 01-04-2022 Platelets (Bld) [#/Vol] 184 10*3/uL 150-450 [facility] Work Phone: Absolute lymphocyte counton 12-27-2021 Lymphocytes Auto (Unsp spec) [#/Vol] 1.79 10*3/uL 0.83-4.51 [facility] Work Phone: Basophil percentageon 2021 Basophils/100 WBC (Bld) 0.4 % 0-1 [facility] Work Phone: [phone] Eosinophils/100 WBC (Bld) 0.4 % 0-5 [facility] Work Phone: Neutrophils (Bld) [#/Vol] 4.9 10*3/uL 2.0-7.7 [facility] Work Phone: Neutrophils/100 WBC (Bld) 65.2 % 47-70 [facility] Work Phone: WBC (Bld) [#/Vol] 7.6 10*3/uL 4.4-11.0 [facility] Work Phone: Blood erythrocytes count (nu mber/volume)on 12-27-2021 RBC (Bld) [#/Vol] 4.66 10*6/uL 4.6-6.2 [facility] Work Phone: Blood hemoglobin measurement (mass/volume)on 12-27-2021 Hemoglobin (Bld) [Mass/Vol] 14.5 g/dL 13.0-16.5 [facility] Work Phone: Blood lymphocytes/100 leukoc yteson 12-27-2021 Lymphocytes/100 WBC (Bld) 23.6 % 19-41 [facility] Work Phone: [phone] Blood monocytes/100 leukocyt eson 12-27-2021 Monocytes/100 WBC (Bld) 10.0 % 0-10 [facility] Work Phone: Blood platelet mean volumeon 12-27-2021 Platelet mean volume (Bld) [Entitic vol] 10.9 fL 6.2-12.0 [facility] Work Phone: Determination of erythrocyte mean corpuscular volume (MCV)on 12-27-2021 MCV (RBC) [Entitic vol] 91.0 fL 80-94 [facility] Work Phone: Hematocrit Auto (Bld) [Volum e fraction]on 12-27-2021 Hematocrit (Bld) [Volume fraction] 42.4 % 40-54 [facility] Work Phone: Laboratory - Hematology and Cell countson 12-27-2021 Erythrocyte distribution width (RBC) [Entitic vol] 41.2 fL 35.1-43.9 [facility] Work Phone: Erythrocyte distribution width (RBC) [Ratio] 12.6 % 11.6-14.6 [facility] Work Phone: Immature granulocytes/100 WBC (Bld) 0.400 % 0.0-0.9 [facility] Work Phone: Comment on above: IG% - Immature Granu locytes (promyelocytes, myelocytes and metamyelocytes) > 1% indicates that a LEFT SHIFT is Present. MCH (RBC) [Entitic mass] 31.1 pg 27.0-32.0 [facility] Work Phone: Nucleated RBC/100 WBC (Bld) [Ratio] 0 % 0-5 [facility] Work Phone: MCHC Auto (RBC) [Mass/Vol]on 12-27-2021 MCHC (RBC) [Mass/Vol] 34.2 g/dL 32-36 [facility] Work Phone: Platelets bldon 12-27-2021 Platelets (Bld) [#/Vol] 185 10*3/uL 150-450 [facility] Work Phone: Absolute lymphocyte counton 12-20-2021 Lymphocytes Auto (Unsp spec) [#/Vol] 2.02 10*3/uL 0.83-4.51 [facility] Work Phone: [phone] Basophil percentageon 2021 Basophils/100 WBC (Bld) 0.2 % 0-1 [facility] Work Phone: [phone] Eosinophils/100 WBC (Bld) 0.3 % 0-5 [facility] Work Phone: [phone] Neutrophils (Bld) [#/Vol] 3.6 10*3/uL 2.0-7.7 [facility] Work Phone: [phone] Neutrophils/100 WBC (Bld) 57.8 % 47-70 [facility] Work Phone: [phone] WBC (Bld) [#/Vol] 6.1 10*3/uL 4.4-11.0 [facility] Work Phone: Blood erythrocytes count (nu mber/volume)on 12-20-2021 RBC (Bld) [#/Vol] 4.81 10*6/uL 4.6-6.2 [facility] Work Phone: Blood hemoglobin measurement (mass/volume)on 12-20-2021 Hemoglobin (Bld) [Mass/Vol] 14.8 g/dL 13.0-16.5 [facility] Work Phone: [phone] Blood lymphocytes/100 leukoc yteson 12-20-2021 Lymphocytes/100 WBC (Bld) 32.9 % 19-41 [facility] Work Phone: [phone] Blood monocytes/100 leukocyt eson 12-20-2021 Monocytes/100 WBC (Bld) 8.3 % 0-10 [facility] Work Phone: [phone] Blood platelet adequacy dete ction by light microscopyon 12-20-2021 Platelets LM Ql (Bld) ADEQUATE ADEQ [facility] Work Phone: [phone] Blood platelet mean volumeon 12-20-2021 Platelet mean volume (Bld) [Entitic vol] 11.1 fL 6.2-12.0 [facility] Work Phone: Determination of erythrocyte mean corpuscular volume (MCV)on 12-20-2021 MCV (RBC) [Entitic vol] 93.1 fL 80-94 [facility] Work Phone: Hematocrit Auto (Bld) [Volum e fraction]on 12-20-2021 Hematocrit (Bld) [Volume fraction] 44.8 % 40-54 [facility] Work Phone: Laboratory - Hematology and Cell countson 12-20-2021 Erythrocyte distribution width (RBC) [Entitic vol] 42.4 fL 35.1-43.9 [facility] Work Phone: Erythrocyte distribution width (RBC) [Ratio] 12.4 % 11.6-14.6 [facility] Work Phone: Immature granulocytes/100 WBC (Bld) 0.500 % 0.0-0.9 [facility] Work Phone: Comment on above: IG% - Immature Granu locytes (promyelocytes, myelocytes and metamyelocytes) > 1% indicates that a LEFT SHIFT is Present. MCH (RBC) [Entitic mass] 30.8 pg 27.0-32.0 [facility] Work Phone: Nucleated RBC/100 WBC (Bld) [Ratio] 0 % 0-5 [facility] Work Phone: MCHC Auto (RBC) [Mass/Vol]on 12-20-2021 MCHC (RBC) [Mass/Vol] 33.0 g/dL 32-36 [facility] Work Phone: Platelets bldon 12-20-2021 Platelets (Bld) [#/Vol] See comment 150-450 [facility] Work Phone: Comment on above: [...] Auto (Unsp spec) [#/Vol] 1.88 10*3/uL 0.83-4.51 [facility] Work Phone: Basophil percentageon 2021 Basophils/100 WBC (Bld) 0.6 % 0-1 [facility] Work Phone: Eosinophils/100 WBC (Bld) 0.3 % 0-5 [facility] Work Phone: Neutrophils (Bld) [#/Vol] 4.5 10*3/uL 2.0-7.7 [facility] Work Phone: Neutrophils/100 WBC (Bld) 63.6 % 47-70 [facility] Work Phone: WBC (Bld) [#/Vol] 7.1 10*3/uL 4.4-11.0 [facility]: Blood erythrocytes count (nu mber/volume)on 12-13-2021 RBC (Bld) [#/Vol] 4.70 10*6/uL 4.6-6.2 [facility] Work [facility]: Blood hemoglobin measurement (mass/volume)on 12-13-2021 Hemoglobin (Bld) [Mass/Vol] 14.4 g/dL 13.0-16.5 [facility] Work Phone: Blood lymphocytes/100 leukoc yteson 12-13-2021 Lymphocytes/100 WBC (Bld) 26.7 % 19-41 [facility] Work Phone: Blood monocytes/100 leukocyt eson 12-13-2021 Monocytes/100 WBC (Bld) 8.5 % 0-10 [facility] Work Phone: Blood platelet mean volumeon 12-13-2021 Platelet mean volume (Bld) [Entitic vol] 10.9 fL 6.2-12.0 [facility] Work Phone: Determination of erythrocyte mean corpuscular volume (MCV)on 12-13-2021 MCV (RBC) [Entitic vol] 90.9 fL 80-94 [facility] Work Phone: Hematocrit Auto (Bld) [Volum e fraction]on 12-13-2021 Hematocrit (Bld) [Volume fraction] 42.7 % 40-54 [facility] Work Phone: Laboratory - Hematology and Cell countson 12-13-2021 Erythrocyte distribution width (RBC) [Entitic vol] 42.1 fL 35.1-43.9 [facility] Work Phone: Erythrocyte distribution width (RBC) [Ratio] 12.6 % 11.6-14.6 [facility] Work Phone: Immature granulocytes/100 WBC (Bld) 0.300 % 0.0-0.9 [facility] Work Phone: Comment on above: IG% - Immature Granu locytes (promyelocytes, myelocytes and metamyelocytes) > 1% indicates that a LEFT SHIFT is Present. MCH (RBC) [Entitic mass] 30.6 pg 27.0-32.0 [facility] Work Phone: Nucleated RBC/100 WBC (Bld) [Ratio] 0 % 0-5 [facility] Work Phone: MCHC Auto (RBC) [Mass/Vol]on 12-13-2021 MCHC (RBC) [Mass/Vol] 33.7 g/dL 32-36 [facility] Work [facility]: Platelets bldon 12-13-2021 Platelets (Bld) [#/Vol] 194 10*3/uL 150-450 [facility] Work Phone: Absolute lymphocyte counton 12-06-2021 Lymphocytes Auto (Unsp spec) [#/Vol] 1.91 10*3/uL 0.83-4.51 [facility] Work Phone: Basophil percentageon 2021 Basophils/100 WBC (Bld) 0.4 % 0-1 [facility] Work Phone: Eosinophils/100 WBC (Bld) 0.3 % 0-5 [facility] Work Phone: Neutrophils (Bld) [#/Vol] 4.4 10*3/uL 2.0-7.7 [facility] Work Phone: Neutrophils/100 WBC (Bld) 62.2 % 47-70 [facility] Work Phone: WBC (Bld) [#/Vol] 7.0 10*3/uL 4.4-11.0 [facility] Work [facility]: Blood erythrocytes count (nu mber/volume)on 12-06-2021 RBC (Bld) [#/Vol] 4.58 10*6/uL 4.6-6.2 [facility] Work [facility]: [phone] Blood hemoglobin measurement (mass/volume)on 12-06-2021 Hemoglobin (Bld) [Mass/Vol] 13.8 g/dL 13.0-16.5 [facility] Work Phone: Blood lymphocytes/100 leukoc yteson 12-06-2021 Lymphocytes/100 WBC (Bld) 27.2 % 19-41 [facility] Work Phone: Blood monocytes/100 leukocyt eson 12-06-2021 Monocytes/100 WBC (Bld) 9.6 % 0-10 [facility] Work Phone: Blood platelet mean volumeon 12-06-2021 Platelet mean volume (Bld) [Entitic vol] 11.1 fL 6.2-12.0 [facility] Work Phone: Determination of erythrocyte mean corpuscular volume (MCV)on 12-06-2021 MCV (RBC) [Entitic vol] 92.1 fL 80-94 [facility] Work Phone: Hematocrit Auto (Bld) [Volum e fraction]on 12-06-2021 Hematocrit (Bld) [Volume fraction] 42.2 % 40-54 [facility] Work Phone: [phone] Laboratory - Hematology and Cell countson 12-06-2021 Erythrocyte distribution width (RBC) [Entitic vol] 42.1 fL 35.1-43.9 [facility] Work Phone: Erythrocyte distribution width (RBC) [Ratio] 12.6 % 11.6-14.6 [facility] Work Phone: Immature granulocytes/100 WBC (Bld) 0.300 % 0.0-0.9 [facility] Work Phone: Comment on above: IG% - Immature Granu locytes (promyelocytes, myelocytes and metamyelocytes) > 1% indicates that a LEFT SHIFT is Present. MCH (RBC) [Entitic mass] 30.1 pg 27.0-32.0 [facility] Work Phone: [phone] Nucleated RBC/100 WBC (Bld) [Ratio] 0 % 0-5 [facility] Work Phone: MCHC Auto (RBC) [Mass/Vol]on 12-06-2021 MCHC (RBC) [Mass/Vol] 32.7 g/dL 32-36 [facility] Work Phone: Platelets bldon 12-06-2021 Platelets (Bld) [#/Vol] 180 10*3/uL 150-450 [facility] Work Phone: [phone] Absolute lymphocyte counton 11-29-2021 Lymphocytes Auto (Unsp spec) [#/Vol] 2.00 10*3/uL 0.83-4.51 [facility] Work Phone: Basophil percentageon 2021 Basophils/100 WBC (Bld) 0.4 % 0-1 [facility] Work Phone: Eosinophils/100 WBC (Bld) 0.3 % 0-5 [facility] Work Phone: Neutrophils (Bld) [#/Vol] 4.4 10*3/uL 2.0-7.7 [facility] Work Phone: Neutrophils/100 WBC (Bld) 62.8 % 47-70 [facility] Work Phone: WBC (Bld) [#/Vol] 7.0 10*3/uL 4.4-11.0 [facility] Work Phone: Blood erythrocytes count (nu mber/volume)on 11-29-2021 RBC (Bld) [#/Vol] 4.72 10*6/uL 4.6-6.2 [facility] Work Phone: Blood hemoglobin measurement (mass/volume)on 11-29-2021 Hemoglobin (Bld) [Mass/Vol] 14.6 g/dL 13.0-16.5 [facility] Work Phone: Blood lymphocytes/100 leukoc yteson 11-29-2021 Lymphocytes/100 WBC (Bld) 28.6 % 19-41 [facility] Work Phone: Blood monocytes/100 leukocyt eson 11-29-2021 Monocytes/100 WBC (Bld) 7.6 % 0-10 [facility] Work Phone: Blood platelet mean volumeon 11-29-2021 Platelet mean volume (Bld) [Entitic vol] 11.1 fL 6.2-12.0 [facility] Work Phone: Determination of erythrocyte mean corpuscular volume (MCV)on 11-29-2021 MCV (RBC) [Entitic vol] 91.9 fL 80-94 [facility] Work Phone: Hematocrit Auto (Bld) [Volum e fraction]on 11-29-2021 Hematocrit (Bld) [Volume fraction] 43.4 % 40-54 [facility] Work Phone: Laboratory - Hematology and Cell countson 11-29-2021 Erythrocyte distribution width (RBC) [Entitic vol] 41.8 fL 35.1-43.9 [facility] Work Phone: Erythrocyte distribution width (RBC) [Ratio] 12.4 % 11.6-14.6 [facility] Work Phone: Immature granulocytes/100 WBC (Bld) 0.300 % 0.0-0.9 [facility] Work Phone: Comment on above: IG% - Immature Granu locytes (promyelocytes, myelocytes and metamyelocytes) > 1% indicates that a LEFT SHIFT is Present. MCH (RBC) [Entitic mass] 30.9 pg 27.0-32.0 [facility] Work Phone: Nucleated RBC/100 WBC (Bld) [Ratio] 0 % 0-5 [facility] Work Phone: MCHC Auto (RBC) [Mass/Vol]on 11-29-2021 MCHC (RBC) [Mass/Vol] 33.6 g/dL 32-36 [facility] Work Phone: Platelets bldon 11-29-2021 Platelets (Bld) [#/Vol] 205 10*3/uL 150-450 [facility] Work Phone: Absolute lymphocyte counton 11-22-2021 Lymphocytes Auto (Unsp spec) [#/Vol] 2.25 10*3/uL 0.83-4.51 [facility] Work Phone: Basophil percentageon 2021 Basophils/100 WBC (Bld) 0.4 % 0-1 [facility] Work Phone: Eosinophils/100 WBC (Bld) 0.4 % 0-5 [facility] Work Phone: Neutrophils (Bld) [#/Vol] 5.1 10*3/uL 2.0-7.7 [facility] Work Phone: Neutrophils/100 WBC (Bld) 61.7 % 47-70 [facility] Work Phone: WBC (Bld) [#/Vol] 8.3 10*3/uL 4.4-11.0 [facility] Work [facility]: Blood erythrocytes count (nu mber/volume)on 11-22-2021 RBC (Bld) [#/Vol] 4.47 10*6/uL 4.6-6.2 [facility] Work [facility]: Blood hemoglobin measurement (mass/volume)on 11-22-2021 Hemoglobin (Bld) [Mass/Vol] 13.5 g/dL 13.0-16.5 [facility] Work Phone: Blood lymphocytes/100 leukoc yteson 11-22-2021 Lymphocytes/100 WBC (Bld) 27.2 % 19-41 [facility] Work Phone: Blood monocytes/100 leukocyt eson 11-22-2021 Monocytes/100 WBC (Bld) 9.9 % 0-10 [facility] Work Phone: Blood platelet mean volumeon 11-22-2021 Platelet mean volume (Bld) [Entitic vol] 11.1 fL 6.2-12.0 [facility] Work Phone: Determination of erythrocyte mean corpuscular volume (MCV)on 11-22-2021 MCV (RBC) [Entitic vol] 92.2 fL 80-94 [facility] Work Phone: Hematocrit Auto (Bld) [Volum e fraction]on 11-22-2021 Hematocrit (Bld) [Volume fraction] 41.2 % 40-54 [facility] Work Phone: Laboratory - Hematology and Cell countson 11-22-2021 Erythrocyte distribution width (RBC) [Entitic vol] 42.3 fL 35.1-43.9 [facility] Work Phone: Erythrocyte distribution width (RBC) [Ratio] 12.6 % 11.6-14.6 [facility] Work Phone: Immature granulocytes/100 WBC (Bld) 0.400 % 0.0-0.9 [facility] Work Phone: Comment on above: IG% - Immature Granu locytes (promyelocytes, myelocytes and metamyelocytes) > 1% indicates that a LEFT SHIFT is Present. MCH (RBC) [Entitic mass] 30.2 pg 27.0-32.0 [facility] Work Phone: Nucleated RBC/100 WBC (Bld) [Ratio] 0 % 0-5 [facility] Work Phone: MCHC Auto (RBC) [Mass/Vol]on 11-22-2021 MCHC (RBC) [Mass/Vol] 32.8 g/dL 32-36 [facility] Work Phone: Platelets bldon 11-22-2021 Platelets (Bld) [#/Vol] 190 10*3/uL 150-450 [facility] Work Phone: Absolute lymphocyte counton 11-15-2021 Lymphocytes Auto (Unsp spec) [#/Vol] 2.09 10*3/uL 0.83-4.51 [facility] Work Phone: Basophil percentageon 2021 Basophils/100 WBC (Bld) 0.6 % 0-1 [facility] Work Phone: Eosinophils/100 WBC (Bld) 0.4 % 0-5 [facility] Work Phone: Neutrophils (Bld) [#/Vol] 4.2 10*3/uL 2.0-7.7 [facility] Work Phone: Neutrophils/100 WBC (Bld) 59.1 % 47-70 [facility] Work Phone: WBC (Bld) [#/Vol] 7.1 10*3/uL 4.4-11.0 [facility] Work [facility]: Blood erythrocytes count (nu mber/volume)on 11-15-2021 RBC (Bld) [#/Vol] 4.72 10*6/uL 4.6-6.2 [facility] Work Phone: [phone] Blood hemoglobin measurement (mass/volume)on 11-15-2021 Hemoglobin (Bld) [Mass/Vol] 14.6 g/dL 13.0-16.5 [facility] Work Phone: Blood lymphocytes/100 leukoc yteson 11-15-2021 Lymphocytes/100 WBC (Bld) 29.4 % 19-41 [facility] Work Phone: Blood monocytes/100 leukocyt eson 11-15-2021 Monocytes/100 WBC (Bld) 10.1 % 0-10 [facility] Work Phone: Blood platelet mean volumeon 11-15-2021 Platelet mean volume (Bld) [Entitic vol] 10.7 fL 6.2-12.0 [facility] Work Phone: Determination of erythrocyte mean corpuscular volume (MCV)on 11-15-2021 MCV (RBC) [Entitic vol] 91.9 fL 80-94 [facility] Work Phone: Hematocrit Auto (Bld) [Volum e fraction]on 11-15-2021 Hematocrit (Bld) [Volume fraction] 43.4 % 40-54 [facility] Work Phone: Laboratory - Hematology and Cell countson 11-15-2021 Erythrocyte distribution width (RBC) [Entitic vol] 41.9 fL 35.1-43.9 [facility] Work Phone: Erythrocyte distribution width (RBC) [Ratio] 12.4 % 11.6-14.6 [facility] Work Phone: Immature granulocytes/100 WBC (Bld) 0.400 % 0.0-0.9 [facility] Work Phone: Comment on above: IG% - Immature Granu locytes (promyelocytes, myelocytes and metamyelocytes) > 1% indicates that a LEFT SHIFT is Present. MCH (RBC) [Entitic mass] 30.9 pg 27.0-32.0 [facility] Work Phone: Nucleated RBC/100 WBC (Bld) [Ratio] 0 % 0-5 [facility] Work Phone: MCHC Auto (RBC) [Mass/Vol]on 11-15-2021 MCHC (RBC) [Mass/Vol] 33.6 g/dL 32-36 [facility] Work Phone: [phone] Platelets bldon 11-15-2021 Platelets (Bld) [#/Vol] 191 10*3/uL 150-450 [facility] Work Phone: Absolute lymphocyte counton 11-08-2021 Lymphocytes Auto (Unsp spec) [#/Vol] 1.97 10*3/uL 0.83-4.51 [facility] Work Phone: Basophil percentageon 2021 Basophils/100 WBC (Bld) 0.3 % 0-1 [facility] Work Phone: [phone] Eosinophils/100 WBC (Bld) 0.3 % 0-5 [facility] Work Phone: Neutrophils (Bld) [#/Vol] 5.1 10*3/uL 2.0-7.7 [facility] Work Phone: Neutrophils/100 WBC (Bld) 64.6 % 47-70 [facility] Work Phone: WBC (Bld) [#/Vol] 7.8 10*3/uL 4.4-11.0 [facility] Work Phone: Blood erythrocytes count (nu mber/volume)on 11-08-2021 RBC (Bld) [#/Vol] 4.53 10*6/uL 4.6-6.2 [facility] Work [facility]: Blood hemoglobin measurement (mass/volume)on 11-08-2021 Hemoglobin (Bld) [Mass/Vol] 14.2 g/dL 13.0-16.5 [facility] Work Phone: [phone] Blood lymphocytes/100 leukoc yteson 11-08-2021 Lymphocytes/100 WBC (Bld) 25.2 % 19-41 [facility] Work Phone: Blood monocytes/100 leukocyt eson 11-08-2021 Monocytes/100 WBC (Bld) 9.3 % 0-10 [facility] Work Phone: Blood platelet mean volumeon 11-08-2021 Platelet mean volume (Bld) [Entitic vol] 10.9 fL 6.2-12.0 [facility] Work Phone: Determination of erythrocyte mean corpuscular volume (MCV)on 11-08-2021 MCV (RBC) [Entitic vol] 92.7 fL 80-94 [facility] Work Phone: Hematocrit Auto (Bld) [Volum e fraction]on 11-08-2021 Hematocrit (Bld) [Volume fraction] 42.0 % 40-54 [facility] Work Phone: Laboratory - Hematology and Cell countson 11-08-2021 Erythrocyte distribution width (RBC) [Entitic vol] 42.3 fL 35.1-43.9 [facility] Work Phone: Erythrocyte distribution width (RBC) [Ratio] 12.5 % 11.6-14.6 [facility] Work Phone: Immature granulocytes/100 WBC (Bld) 0.300 % 0.0-0.9 [facility] Work Phone: Comment on above: IG% - Immature Granu locytes (promyelocytes, myelocytes and metamyelocytes) > 1% indicates that a LEFT SHIFT is Present. MCH (RBC) [Entitic mass] 31.3 pg 27.0-32.0 [facility] Work Phone: Nucleated RBC/100 WBC (Bld) [Ratio] 0 % 0-5 [facility] Work Phone: MCHC Auto (RBC) [Mass/Vol]on 11-08-2021 MCHC (RBC) [Mass/Vol] 33.8 g/dL 32-36 [facility] Work Phone: Platelets bldon 11-08-2021 Platelets (Bld) [#/Vol] 207 10*3/uL 150-450 [facility] Work Phone: [phone] Absolute lymphocyte counton 10-25-2021 Lymphocytes Auto (Unsp spec) [#/Vol] 2.05 10*3/uL 0.83-4.51 [facility] Work Phone: [phone] Basophil percentageon 2021 Basophils/100 WBC (Bld) 0.4 % 0-1 [facility] Work Phone: Eosinophils/100 WBC (Bld) 0.3 % 0-5 [facility] Work Phone: [phone] Neutrophils (Bld) [#/Vol] 4.2 10*3/uL 2.0-7.7 [facility] Work Phone: [phone] Neutrophils/100 WBC (Bld) 61.3 % 47-70 [facility] Work Phone: [phone] WBC (Bld) [#/Vol] 6.8 10*3/uL 4.4-11.0 [facility] Work Phone: Blood erythrocytes count (nu mber/volume)on 10-25-2021 RBC (Bld) [#/Vol] 4.56 10*6/uL 4.6-6.2 [facility] Work [facility]: Blood hemoglobin measurement (mass/volume)on 10-25-2021 Hemoglobin (Bld) [Mass/Vol] 13.9 g/dL 13.0-16.5 [facility] Work Phone: [phone] Blood lymphocytes/100 leukoc yteson 10-25-2021 Lymphocytes/100 WBC (Bld) 30.1 % 19-41 [facility] Work Phone: [phone] Blood monocytes/100 leukocyt eson 10-25-2021 Monocytes/100 WBC (Bld) 7.3 % 0-10 [facility] Work Phone: [phone] Blood platelet mean volumeon 10-25-2021 Platelet mean volume (Bld) [Entitic vol] 10.6 fL 6.2-12.0 [facility] Work Phone: Determination of erythrocyte mean corpuscular volume (MCV)on 10-25-2021 MCV (RBC) [Entitic vol] 91.0 fL 80-94 [facility] Work Phone: Hematocrit Auto (Bld) [Volum e fraction]on 10-25-2021 Hematocrit (Bld) [Volume fraction] 41.5 % 40-54 [facility] Work Phone: Laboratory - Hematology and Cell countson 10-25-2021 Erythrocyte distribution width (RBC) [Entitic vol] 41.7 fL 35.1-43.9 [facility] Work Phone: Erythrocyte distribution width (RBC) [Ratio] 12.6 % 11.6-14.6 [facility] Work Phone: Immature granulocytes/100 WBC (Bld) 0.600 % 0.0-0.9 [facility] Work Phone: Comment on above: IG% - Immature Granu locytes (promyelocytes, myelocytes and metamyelocytes) > 1% indicates that a LEFT SHIFT is Present. MCH (RBC) [Entitic mass] 30.5 pg 27.0-32.0 [facility] Work Phone: Nucleated RBC/100 WBC (Bld) [Ratio] 0 % 0-5 [facility] Work Phone: MCHC Auto (RBC) [Mass/Vol]on 10-25-2021 MCHC (RBC) [Mass/Vol] 33.5 g/dL 32-36 [facility] Work Phone: Platelets bldon 10-25-2021 Platelets (Bld) [#/Vol] 191 10*3/uL 150-450 [facility] Work Phone: Absolute lymphocyte counton 10-18-2021 Lymphocytes Auto (Unsp spec) [#/Vol] 1.66 10*3/uL 0.83-4.51 [facility] Work Phone: Basophil percentageon 2021 Basophils/100 WBC (Bld) 0.5 % 0-1 [facility] Work Phone: Eosinophils/100 WBC (Bld) 0.2 % 0-5 [facility] Work Phone: Neutrophils (Bld) [#/Vol] 4.3 10*3/uL 2.0-7.7 [facility] Work Phone: Neutrophils/100 WBC (Bld) 65.0 % 47-70 [facility] Work Phone: [phone] WBC (Bld) [#/Vol] 6.6 10*3/uL 4.4-11.0 [facility] Work Phone: Blood erythrocytes count (nu mber/volume)on 10-18-2021 RBC (Bld) [#/Vol] 4.57 10*6/uL 4.6-6.2 [facility] Work [facility]: Blood hemoglobin measurement (mass/volume)on 10-18-2021 Hemoglobin (Bld) [Mass/Vol] 14.1 g/dL 13.0-16.5 [facility] Work Phone: Blood lymphocytes/100 leukoc yteson 10-18-2021 Lymphocytes/100 WBC (Bld) 25.2 % 19-41 [facility] Work Phone: Blood monocytes/100 leukocyt eson 10-18-2021 Monocytes/100 WBC (Bld) 8.8 % 0-10 [facility] Work Phone: Blood platelet mean volumeon 10-18-2021 Platelet mean volume (Bld) [Entitic vol] 10.6 fL 6.2-12.0 [facility] Work Phone: Determination of erythrocyte mean corpuscular volume (MCV)on 10-18-2021 MCV (RBC) [Entitic vol] 91.7 fL 80-94 [facility] Work Phone: Hematocrit Auto (Bld) [Volum e fraction]on 10-18-2021 Hematocrit (Bld) [Volume fraction] 41.9 % 40-54 [facility] Work Phone: Laboratory - Hematology and Cell countson 10-18-2021 Erythrocyte distribution width (RBC) [Entitic vol] 41.6 fL 35.1-43.9 [facility] Work Phone: Erythrocyte distribution width (RBC) [Ratio] 12.5 % 11.6-14.6 [facility] Work Phone: [phone] Immature granulocytes/100 WBC (Bld) 0.300 % 0.0-0.9 [facility] Work Phone: Comment on above: IG% - Immature Granu locytes (promyelocytes, myelocytes and metamyelocytes) > 1% indicates that a LEFT SHIFT is Present. MCH (RBC) [Entitic mass] 30.9 pg 27.0-32.0 [facility] Work Phone: Nucleated RBC/100 WBC (Bld) [Ratio] 0 % 0-5 [facility] Work Phone: MCHC Auto (RBC) [Mass/Vol]on 10-18-2021 MCHC (RBC) [Mass/Vol] 33.7 g/dL 32-36 [facility] Work Phone: [phone] Platelets bldon 10-18-2021 Platelets (Bld) [#/Vol] 185 10*3/uL 150-450 [facility] Work Phone: [phone] Absolute lymphocyte counton 10-11-2021 Lymphocytes Auto (Unsp spec) [#/Vol] 1.66 10*3/uL 0.83-4.51 [facility] Work Phone: [phone] Basophil percentageon 2021 Basophils/100 WBC (Bld) 0.5 % 0-1 [facility] Work Phone: [phone] Eosinophils/100 WBC (Bld) 0.1 % 0-5 [facility] Work Phone: Neutrophils (Bld) [#/Vol] 5.9 10*3/uL 2.0-7.7 [facility] Work Phone: Neutrophils/100 WBC (Bld) 70.8 % 47-70 [facility] Work Phone: WBC (Bld) [#/Vol] 8.3 10*3/uL 4.4-11.0 [facility] Work Phone: Blood erythrocytes count (nu mber/volume)on 10-11-2021 RBC (Bld) [#/Vol] 4.66 10*6/uL 4.6-6.2 [facility] Work [facility]: Blood hemoglobin measurement (mass/volume)on 10-11-2021 Hemoglobin (Bld) [Mass/Vol] 14.1 g/dL 13.0-16.5 [facility] Work Phone: Blood lymphocytes/100 leukoc yteson 10-11-2021 Lymphocytes/100 WBC (Bld) 20.0 % 19-41 [facility] Work Phone: Blood monocytes/100 leukocyt eson 10-11-2021 Monocytes/100 WBC (Bld) 8.2 % 0-10 [facility] Work Phone: Blood platelet mean volumeon 10-11-2021 Platelet mean volume (Bld) [Entitic vol] 10.7 fL 6.2-12.0 [facility] Work Phone: Determination of erythrocyte mean corpuscular volume (MCV)on 10-11-2021 MCV (RBC) [Entitic vol] 91.8 fL 80-94 [facility] Work Phone: Hematocrit Auto (Bld) [Volum e fraction]on 10-11-2021 Hematocrit (Bld) [Volume fraction] 42.8 % 40-54 [facility] Work Phone: Laboratory - Hematology and Cell countson 10-11-2021 Erythrocyte distribution width (RBC) [Entitic vol] 42.8 fL 35.1-43.9 [facility] Work Phone: Erythrocyte distribution width (RBC) [Ratio] 12.8 % 11.6-14.6 [facility] Work Phone: Immature granulocytes/100 WBC (Bld) 0.400 % 0.0-0.9 [facility] Work Phone: Comment on above: IG% - Immature Granu locytes (promyelocytes, myelocytes and metamyelocytes) > 1% indicates that a LEFT SHIFT is Present. MCH (RBC) [Entitic mass] 30.3 pg 27.0-32.0 [facility] Work Phone: Nucleated RBC/100 WBC (Bld) [Ratio] 0 % 0-5 [facility] Work Phone: MCHC Auto (RBC) [Mass/Vol]on 10-11-2021 MCHC (RBC) [Mass/Vol] 32.9 g/dL 32-36 [facility] Work Phone: Platelets bldon 10-11-2021 Platelets (Bld) [#/Vol] 193 10*3/uL 150-450 [facility] Work Phone: Absolute lymphocyte counton 10-04-2021 Lymphocytes Auto (Unsp spec) [#/Vol] 1.97 10*3/uL 0.83-4.51 [facility] Work Phone: Basophil percentageon 2021 Basophils/100 WBC (Bld) 0.5 % 0-1 [facility] Work Phone: Eosinophils/100 WBC (Bld) 0.1 % 0-5 [facility] Work Phone: Neutrophils (Bld) [#/Vol] 5.0 10*3/uL 2.0-7.7 [facility] Work Phone: Neutrophils/100 WBC (Bld) 64.4 % 47-70 [facility] Work Phone: WBC (Bld) [#/Vol] 7.7 10*3/uL 4.4-11.0 [facility] Work Phone: Blood erythrocytes count (nu mber/volume)on 10-04-2021 RBC (Bld) [#/Vol] 4.52 10*6/uL 4.6-6.2 [facility] Work [facility]: Blood hemoglobin measurement (mass/volume)on 10-04-2021 Hemoglobin (Bld) [Mass/Vol] 13.9 g/dL 13.0-16.5 [facility] Work Phone: Blood lymphocytes/100 leukoc yteson 10-04-2021 Lymphocytes/100 WBC (Bld) 25.6 % 19-41 [facility] Work Phone: Blood monocytes/100 leukocyt eson 10-04-2021 Monocytes/100 WBC (Bld) 9.0 % 0-10 [facility] Work Phone: Blood platelet mean volumeon 10-04-2021 Platelet mean volume (Bld) [Entitic vol] 11.0 fL 6.2-12.0 [facility] Work Phone: Determination of erythrocyte mean corpuscular volume (MCV)on 10-04-2021 MCV (RBC) [Entitic vol] 91.4 fL 80-94 [facility] Work Phone: Hematocrit Auto (Bld) [Volum e fraction]on 10-04-2021 Hematocrit (Bld) [Volume fraction] 41.3 % 40-54 [facility] Work Phone: Laboratory - Hematology and Cell countson 10-04-2021 Erythrocyte distribution width (RBC) [Entitic vol] 42.2 fL 35.1-43.9 [facility] Work Phone: Erythrocyte distribution width (RBC) [Ratio] 12.8 % 11.6-14.6 [facility] Work Phone: Immature granulocytes/100 WBC (Bld) 0.400 % 0.0-0.9 [facility] Work Phone: [phone] Comment on above: IG% - Immature Granu locytes (promyelocytes, myelocytes and metamyelocytes) > 1% indicates that a LEFT SHIFT is Present. MCH (RBC) [Entitic mass] 30.8 pg 27.0-32.0 [facility] Work Phone: Nucleated RBC/100 WBC (Bld) [Ratio] 0 % 0-5 [facility] Work Phone: MCHC Auto (RBC) [Mass/Vol]on 10-04-2021 MCHC (RBC) [Mass/Vol] 33.7 g/dL 32-36 [facility] Work Phone: Platelets bldon 10-04-2021 Platelets (Bld) [#/Vol] 179 10*3/uL 150-450 [facility] Work Phone: [phone] Absolute lymphocyte counton 09-28-2021 Lymphocytes Auto (Unsp spec) [#/Vol] 2.10 10*3/uL 0.83-4.51 [facility] Work Phone: Basophil percentageon 2021 Basophils/100 WBC (Bld) 0.4 % 0-1 [facility] Work Phone: Eosinophils/100 WBC (Bld) 0.3 % 0-5 [facility] Work Phone: Neutrophils (Bld) [#/Vol] 4.3 10*3/uL 2.0-7.7 [facility] Work Phone: Neutrophils/100 WBC (Bld) 59.9 % 47-70 [facility] Work Phone: WBC (Bld) [#/Vol] 7.2 10*3/uL 4.4-11.0 [facility]: Blood erythrocytes count (nu mber/volume)on 09-28-2021 RBC (Bld) [#/Vol] 4.34 10*6/uL 4.6-6.2 [facility] Work Phone: Blood hemoglobin measurement (mass/volume)on 09-28-2021 Hemoglobin (Bld) [Mass/Vol] 13.3 g/dL 13.0-16.5 [facility] Work Phone: Blood lymphocytes/100 leukoc yteson 09-28-2021 Lymphocytes/100 WBC (Bld) 29.3 % 19-41 [facility] Work Phone: Blood monocytes/100 leukocyt eson 09-28-2021 Monocytes/100 WBC (Bld) 9.8 % 0-10 [facility] Work Phone: Blood platelet mean volumeon 09-28-2021 Platelet mean volume (Bld) [Entitic vol] 10.7 fL 6.2-12.0 [facility] Work Phone: Determination of erythrocyte mean corpuscular volume (MCV)on 09-28-2021 MCV (RBC) [Entitic vol] 91.2 fL 80-94 [facility] Work Phone: Hematocrit Auto (Bld) [Volum e fraction]on 09-28-2021 Hematocrit (Bld) [Volume fraction] 39.6 % 40-54 [facility] Work Phone: Laboratory - Hematology and Cell countson 09-28-2021 Erythrocyte distribution width (RBC) [Entitic vol] 41.8 fL 35.1-43.9 [facility] Work Phone: Erythrocyte distribution width (RBC) [Ratio] 12.6 % 11.6-14.6 [facility] Work Phone: Immature granulocytes/100 WBC (Bld) 0.300 % 0.0-0.9 [facility] Work Phone: Comment on above: IG% - Immature Granu locytes (promyelocytes, myelocytes and metamyelocytes) > 1% indicates that a LEFT SHIFT is Present. MCH (RBC) [Entitic mass] 30.6 pg 27.0-32.0 [facility] Work Phone: Nucleated RBC/100 WBC (Bld) [Ratio] 0 % 0-5 [facility] Work Phone: [phone] MCHC Auto (RBC) [Mass/Vol]on 09-28-2021 MCHC (RBC) [Mass/Vol] 33.6 g/dL 32-36 [facility] Work Phone: [phone] Platelets bldon 09-28-2021 Platelets (Bld) [#/Vol] 181 10*3/uL 150-450 [facility] Work Phone: [phone] Absolute lymphocyte counton 09-20-2021 Lymphocytes Auto (Unsp spec) [#/Vol] 1.79 10*3/uL 0.83-4.51 [facility] Work Phone: Basophil percentageon 2021 Basophils/100 WBC (Bld) 0.4 % 0-1 [facility] Work Phone: [phone] Eosinophils/100 WBC (Bld) 0.3 % 0-5 [facility] Work Phone: Neutrophils (Bld) [#/Vol] 4.1 10*3/uL 2.0-7.7 [facility] Work Phone: Neutrophils/100 WBC (Bld) 61.3 % 47-70 [facility] Work Phone: [phone] WBC (Bld) [#/Vol] 6.7 10*3/uL 4.4-11.0 [facility] Work Phone: Blood erythrocytes count (nu mber/volume)on 09-20-2021 RBC (Bld) [#/Vol] 4.32 10*6/uL 4.6-6.2 [facility] Work Phone: Blood hemoglobin measurement (mass/volume)on 09-20-2021 Hemoglobin (Bld) [Mass/Vol] 13.6 g/dL 13.0-16.5 [facility] Work Phone: [phone] Blood lymphocytes/100 leukoc yteson 09-20-2021 Lymphocytes/100 WBC (Bld) 26.8 % 19-41 [facility] Work Phone: Blood monocytes/100 leukocyt eson 09-20-2021 Monocytes/100 WBC (Bld) 10.8 % 0-10 [facility] Work Phone: Blood platelet mean volumeon 09-20-2021 Platelet mean volume (Bld) [Entitic vol] 10.7 fL 6.2-12.0 [facility] Work Phone: Determination of erythrocyte mean corpuscular volume (MCV)on 09-20-2021 MCV (RBC) [Entitic vol] 93.1 fL 80-94 [facility] Work Phone: Hematocrit Auto (Bld) [Volum e fraction]on 09-20-2021 Hematocrit (Bld) [Volume fraction] 40.2 % 40-54 [facility] Work Phone: Laboratory - Hematology and Cell countson 09-20-2021 Erythrocyte distribution width (RBC) [Entitic vol] 43.0 fL 35.1-43.9 [facility] Work Phone: Erythrocyte distribution width (RBC) [Ratio] 12.6 % 11.6-14.6 [facility] Work Phone: Immature granulocytes/100 WBC (Bld) 0.400 % 0.0-0.9 [facility] Work Phone: Comment on above: IG% - Immature Granu locytes (promyelocytes, myelocytes and metamyelocytes) > 1% indicates that a LEFT SHIFT is Present. MCH (RBC) [Entitic mass] 31.5 pg 27.0-32.0 [facility] Work Phone: Nucleated RBC/100 WBC (Bld) [Ratio] 0 % 0-5 [facility] Work Phone: MCHC Auto (RBC) [Mass/Vol]on 09-20-2021 MCHC (RBC) [Mass/Vol] 33.8 g/dL 32-36 [facility] Work [facility]: Platelets bldon 09-20-2021 Platelets (Bld) [#/Vol] 170 10*3/uL 150-450 [facility] Work Phone: [phone] Absolute lymphocyte counton 09-13-2021 Lymphocytes Auto (Unsp spec) [#/Vol] 1.85 10*3/uL 0.83-4.51 [facility] Work Phone: Basophil percentageon 2021 Basophils/100 WBC (Bld) 0.6 % 0-1 [facility] Work Phone: Eosinophils/100 WBC (Bld) 0.3 % 0-5 [facility] Work Phone: [phone] Neutrophils (Bld) [#/Vol] 4.3 10*3/uL 2.0-7.7 [facility] Work Phone: Neutrophils/100 WBC (Bld) 63.1 % 47-70 [facility] Work Phone: WBC (Bld) [#/Vol] 6.7 10*3/uL 4.4-11.0 [facility] Work Phone: Blood erythrocytes count (nu mber/volume)on 09-13-2021 RBC (Bld) [#/Vol] 4.63 10*6/uL 4.6-6.2 [facility] Work Phone: Blood hemoglobin measurement (mass/volume)on 09-13-2021 Hemoglobin (Bld) [Mass/Vol] 14.2 g/dL 13.0-16.5 [facility] Work Phone: [phone] Blood lymphocytes/100 leukoc yteson 09-13-2021 Lymphocytes/100 WBC (Bld) 27.5 % 19-41 [facility] Work Phone: Blood monocytes/100 leukocyt eson 09-13-2021 Monocytes/100 WBC (Bld) 8.2 % 0-10 [facility] Work Phone: [phone] Blood platelet mean volumeon 09-13-2021 Platelet mean volume (Bld) [Entitic vol] 11.0 fL 6.2-12.0 [facility] Work Phone: Determination of erythrocyte mean corpuscular volume (MCV)on 09-13-2021 MCV (RBC) [Entitic vol] 93.5 fL 80-94 [facility] Work Phone: Hematocrit Auto (Bld) [Volum e fraction]on 09-13-2021 Hematocrit (Bld) [Volume fraction] 43.3 % 40-54 [facility] Work Phone: Laboratory - Hematology and Cell countson 09-13-2021 Erythrocyte distribution width (RBC) [Entitic vol] 43.0 fL 35.1-43.9 [facility] Work Phone: Erythrocyte distribution width (RBC) [Ratio] 12.6 % 11.6-14.6 [facility] Work Phone: Immature granulocytes/100 WBC (Bld) 0.300 % 0.0-0.9 [facility] Work Phone: Comment on above: IG% - Immature Granu locytes (promyelocytes, myelocytes and metamyelocytes) > 1% indicates that a LEFT SHIFT is Present. MCH (RBC) [Entitic mass] 30.7 pg 27.0-32.0 [facility] Work Phone: Nucleated RBC/100 WBC (Bld) [Ratio] 0 % 0-5 [facility] Work Phone: MCHC Auto (RBC) [Mass/Vol]on 09-13-2021 MCHC (RBC) [Mass/Vol] 32.8 g/dL 32-36 [facility] Work Phone: Platelets bldon 09-13-2021 Platelets (Bld) [#/Vol] 188 10*3/uL 150-450 [facility] Work Phone: Absolute lymphocyte counton 09-06-2021 Lymphocytes Auto (Unsp spec) [#/Vol] 1.86 10*3/uL 0.83-4.51 [facility] Work Phone: Basophil percentageon 2021 Basophils/100 WBC (Bld) 0.7 % 0-1 [facility] Work Phone: Eosinophils/100 WBC (Bld) 0.3 % 0-5 [facility] Work Phone: Neutrophils (Bld) [#/Vol] 4.4 10*3/uL 2.0-7.7 [facility] Work Phone: Neutrophils/100 WBC (Bld) 62.6 % 47-70 [facility] Work Phone: WBC (Bld) [#/Vol] 7.0 10*3/uL 4.4-11.0 [facility] Work Phone: Blood erythrocytes count (nu mber/volume)on 09-06-2021 RBC (Bld) [#/Vol] 4.51 10*6/uL 4.6-6.2 [facility]: Blood hemoglobin measurement (mass/volume)on 09-06-2021 Hemoglobin (Bld) [Mass/Vol] 13.8 g/dL 13.0-16.5 [facility] Work Phone: Blood lymphocytes/100 leukoc yteson 09-06-2021 Lymphocytes/100 WBC (Bld) 26.5 % 19-41 [facility] Work Phone: [phone] Blood monocytes/100 leukocyt eson 09-06-2021 Monocytes/100 WBC (Bld) 9.5 % 0-10 [facility] Work Phone: Blood platelet mean volumeon 09-06-2021 Platelet mean volume (Bld) [Entitic vol] 10.7 fL 6.2-12.0 [facility] Work Phone: Determination of erythrocyte mean corpuscular volume (MCV)on 09-06-2021 MCV (RBC) [Entitic vol] 92.9 fL 80-94 [facility] Work Phone: Hematocrit Auto (Bld) [Volum e fraction]on 09-06-2021 Hematocrit (Bld) [Volume fraction] 41.9 % 40-54 [facility] Work Phone: Laboratory - Hematology and Cell countson 09-06-2021 Erythrocyte distribution width (RBC) [Entitic vol] 43.0 fL 35.1-43.9 [facility] Work Phone: Erythrocyte distribution width (RBC) [Ratio] 12.7 % 11.6-14.6 [facility] Work Phone: Immature granulocytes/100 WBC (Bld) 0.400 % 0.0-0.9 [facility] Work Phone: Comment on above: IG% - Immature Granu locytes (promyelocytes, myelocytes and metamyelocytes) > 1% indicates that a LEFT SHIFT is Present. MCH (RBC) [Entitic mass] 30.6 pg 27.0-32.0 [facility] Work Phone: Nucleated RBC/100 WBC (Bld) [Ratio] 0 % 0-5 [facility] Work Phone: MCHC Auto (RBC) [Mass/Vol]on 09-06-2021 MCHC (RBC) [Mass/Vol] 32.9 g/dL 32-36 [facility] Work Phone: Platelets bldon 09-06-2021 Platelets (Bld) [#/Vol] 189 10*3/uL 150-450 [facility] Work Phone: Absolute lymphocyte counton 08-30-2021 Lymphocytes Auto (Unsp spec) [#/Vol] 1.44 10*3/uL 0.83-4.51 [facility] Work Phone: Basophil percentageon 2021 Basophils/100 WBC (Bld) 0.3 % 0-1 [facility] Work Phone: Eosinophils/100 WBC (Bld) 0.2 % 0-5 [facility] Work Phone: Neutrophils (Bld) [#/Vol] 9.6 10*3/uL 2.0-7.7 [facility] Work Phone: Neutrophils/100 WBC (Bld) 80.4 % 47-70 [facility] Work Phone: WBC (Bld) [#/Vol] 12.0 10*3/uL 4.4-11.0 [facility] Work Phone: Blood erythrocytes count (nu mber/volume)on 08-30-2021 RBC (Bld) [#/Vol] 4.52 10*6/uL 4.6-6.2 [facility] Work Phone: Blood hemoglobin measurement (mass/volume)on 08-30-2021 Hemoglobin (Bld) [Mass/Vol] 13.9 g/dL 13.0-16.5 [facility] Work Phone: Blood lymphocytes/100 leukoc yteson 08-30-2021 Lymphocytes/100 WBC (Bld) 12.0 % 19-41 [facility] Work Phone: Blood monocytes/100 leukocyt eson 08-30-2021 Monocytes/100 WBC (Bld) 6.7 % 0-10 [facility] Work Phone: Blood platelet mean volumeon 08-30-2021 Platelet mean volume (Bld) [Entitic vol] 11.3 fL 6.2-12.0 [facility] Work Phone: Determination of erythrocyte mean corpuscular volume (MCV)on 08-30-2021 MCV (RBC) [Entitic vol] 92.7 fL 80-94 [facility] Work Phone: Hematocrit Auto (Bld) [Volum e fraction]on 08-30-2021 Hematocrit (Bld) [Volume fraction] 41.9 % 40-54 [facility] Work Phone: Laboratory - Hematology and Cell countson 08-30-2021 Erythrocyte distribution width (RBC) [Entitic vol] 42.6 fL 35.1-43.9 [facility] Work Phone: [phone] Erythrocyte distribution width (RBC) [Ratio] 12.6 % 11.6-14.6 [facility] Work Phone: [phone] Immature granulocytes/100 WBC (Bld) 0.400 % 0.0-0.9 [facility] Work [phone] Comment on above: IG% - Immature Granu locytes (promyelocytes, myelocytes and metamyelocytes) > 1% indicates that a LEFT SHIFT is Present. MCH (RBC) [Entitic mass] 30.8 pg 27.0-32.0 [facility] Work Phone: [phone] Nucleated RBC/100 WBC (Bld) [Ratio] 0 % 0-5 [facility] Work Phone: MCHC Auto (RBC) [Mass/Vol]on 08-30-2021 MCHC (RBC) [Mass/Vol] 33.2 g/dL 32-36 [facility] Work Phone: Platelets bldon 08-30-2021 Platelets (Bld) [#/Vol] 200 10*3/uL 150-450 [facility] Work Phone: [phone] Absolute lymphocyte counton 08-23-2021 Lymphocytes Auto (Unsp spec) [#/Vol] 1.91 10*3/uL 0.83-4.51 [facility] Work Phone: Basophil percentageon 2021 Basophils/100 WBC (Bld) 0.4 % 0-1 [facility] Work Phone: Eosinophils/100 WBC (Bld) 0.3 % 0-5 [facility] Work Phone: Neutrophils (Bld) [#/Vol] 4.2 10*3/uL 2.0-7.7 [facility] Work Phone: [phone] Neutrophils/100 WBC (Bld) 62.3 % 47-70 [facility] Work Phone: WBC (Bld) [#/Vol] 6.8 10*3/uL 4.4-11.0 [facility] Work [facility]: Blood erythrocytes count (nu mber/volume)on 08-23-2021 RBC (Bld) [#/Vol] 4.46 10*6/uL 4.6-6.2 [facility] Work [facility]: Blood hemoglobin measurement (mass/volume)on 08-23-2021 Hemoglobin (Bld) [Mass/Vol] 13.7 g/dL 13.0-16.5 [facility] Work Phone: Blood lymphocytes/100 leukoc yteson 08-23-2021 Lymphocytes/100 WBC (Bld) 28.3 % 19-41 [facility] Work Phone: Blood monocytes/100 leukocyt eson 08-23-2021 Monocytes/100 WBC (Bld) 8.1 % 0-10 [facility] Work Phone: Blood platelet mean volumeon 08-23-2021 Platelet mean volume (Bld) [Entitic vol] 10.6 fL 6.2-12.0 [facility] Work Phone: Determination of erythrocyte mean corpuscular volume (MCV)on 08-23-2021 MCV (RBC) [Entitic vol] 93.0 fL 80-94 [facility] Work Phone: Hematocrit Auto (Bld) [Volum e fraction]on 08-23-2021 Hematocrit (Bld) [Volume fraction] 41.5 % 40-54 [facility] Work Phone: Laboratory - Hematology and Cell countson 08-23-2021 Erythrocyte distribution width (RBC) [Entitic vol] 42.4 fL 35.1-43.9 [facility] Work Phone: Erythrocyte distribution width (RBC) [Ratio] 12.5 % 11.6-14.6 [facility] Work Phone: Immature granulocytes/100 WBC (Bld) 0.600 % 0.0-0.9 [facility] Work Phone: Comment on above: IG% - Immature Granu locytes (promyelocytes, myelocytes and metamyelocytes) > 1% indicates that a LEFT SHIFT is Present. MCH (RBC) [Entitic mass] 30.7 pg 27.0-32.0 [facility] Work Phone: Nucleated RBC/100 WBC (Bld) [Ratio] 0 % 0-5 [facility] Work Phone: MCHC Auto (RBC) [Mass/Vol]on 08-23-2021 MCHC (RBC) [Mass/Vol] 33.0 g/dL 32-36 [facility] Work Phone: Platelets bldon 08-23-2021 Platelets (Bld) [#/Vol] 198 10*3/uL 150-450 [facility] Work Phone: Basophil percentageon 2021 Basophil percentage 0 SEEN /hpf 0-5 [facility] Work Phone: Bilirubin Test strip Ql (U)o n 08-18-2021 Bilirubin Ql (U) Negative Negative [facility] Work Phone: Culture, urineon 08-18-2021 Bacteria identified Cx Nom (U) Culture exhibits no growth. [facility] Work Phone: Ketones Test strip Ql (U)on 08-18-2021 Ketones Ql (U) Negative Negative [facility] Work Phone: Mucus LM Ql (Urine sed)on Mucus Ql (Urine sed) 0 SEEN /hpf [facility] Work Phone: Nitrite Test strip Ql (U)on 08-18-2021 Nitrite Ql (U) Negative Negative [facility] Work Phone: Protein Test strip Ql (U)on 08-18-2021 Protein Ql (U) Negative Negative [facility] Work Phone: Squamous epithelial cells de tection in urine sediment by light microscopyon 08-18-2021 Epithelial cells.squamous LM Ql (Urine sed) 0 SEEN /hpf 0-5 [facility] Work Phone: Urine blood detectionon - RBC Ql (U) Negative Negative [facility] Work Phone: RBC Ql (U) 0 SEEN /hpf 0-5 [facility] Work Phone: Urine clarityon 08-18-2021 Clarity (U) Clear Clear [facility] Work Phone: Urine color determinationon 08-18-2021 Color (U) Yellow Yellow [facility] Work Phone: Urine glucose detectionon Glucose Ql (U) Normal mg/dl Normal [facility] Work Phone: Urine leukocyte esterase det ection by dipstickon 08-18-2021 Leukocyte esterase Test strip Ql (U) Negative Negative [facility] Work Phone: Urine pHon 08-18-2021 pH (U) 7.0 [pH] 5.0 - 8.0 [facility] Work Phone: Urine sediment bacteria coun t by microscopy (number/high power field)on 08-18-2021 Bacteria LM.HPF (Urine sed) [#/Area] 0 /[HPF] None Seen [facility] Work Phone: Urine specific gravity measu rementon 08-18-2021 Specific gravity (U) [Rel density] 1.010 1.002-1.030 [facility] Work Phone: Urobilinogen Auto test strip Ql (U)on 08-18-2021 Urobilinogen Ql (U) 4 mg/dl Normal [facility] Work Phone: Absolute lymphocyte counton 08-16-2021 Lymphocytes Auto (Unsp spec) [#/Vol] 1.71 10*3/uL 0.83-4.51 [facility] Work Phone: Basophil percentageon 2021 Basophils/100 WBC (Bld) 0.3 % 0-1 [facility] Work Phone: Eosinophils/100 WBC (Bld) 0.2 % 0-5 [facility] Work Phone: [phone] Neutrophils (Bld) [#/Vol] 8.6 10*3/uL 2.0-7.7 [facility] Work Phone: Neutrophils/100 WBC (Bld) 76.8 % 47-70 [facility] Work Phone: [phone] WBC (Bld) [#/Vol] 11.2 10*3/uL 4.4-11.0 [facility] Work Phone: Blood erythrocytes count (nu mber/volume)on 08-16-2021 RBC (Bld) [#/Vol] 4.42 10*6/uL 4.6-6.2 [facility] Work Phone: Blood hemoglobin measurement (mass/volume)on 08-16-2021 Hemoglobin (Bld) [Mass/Vol] 13.4 g/dL 13.0-16.5 [facility] Work Phone: Blood lymphocytes/100 leukoc yteson 08-16-2021 Lymphocytes/100 WBC (Bld) 15.2 % 19-41 [facility] Work Phone: Blood monocytes/100 leukocyt eson 08-16-2021 Monocytes/100 WBC (Bld) 7.1 % 0-10 [facility] Work Phone: Blood platelet mean volumeon 08-16-2021 Platelet mean volume (Bld) [Entitic vol] 11.0 fL 6.2-12.0 [facility] Work Phone: Determination of erythrocyte mean corpuscular volume (MCV)on 08-16-2021 MCV (RBC) [Entitic vol] 91.9 fL 80-94 [facility] Work Phone: Hematocrit Auto (Bld) [Volum e fraction]on 08-16-2021 Hematocrit (Bld) [Volume fraction] 40.6 % 40-54 [facility] Work Phone: Laboratory - Hematology and Cell countson 08-16-2021 Erythrocyte distribution width (RBC) [Entitic vol] 43.0 fL 35.1-43.9 [facility] Work Phone: Erythrocyte distribution width (RBC) [Ratio] 12.7 % 11.6-14.6 [facility] Work Phone: Immature granulocytes/100 WBC (Bld) 0.400 % 0.0-0.9 [facility] Work Phone: Comment on above: IG% - Immature Granu locytes (promyelocytes, myelocytes and metamyelocytes) > 1% indicates that a LEFT SHIFT is Present. MCH (RBC) [Entitic mass] 30.3 pg 27.0-32.0 [facility] Work Phone: Nucleated RBC/100 WBC (Bld) [Ratio] 0 % 0-5 [facility] Work Phone: MCHC Auto (RBC) [Mass/Vol]on 08-16-2021 MCHC (RBC) [Mass/Vol] 33.0 g/dL 32-36 [facility] Work Phone: Platelets bldon 08-16-2021 Platelets (Bld) [#/Vol] 187 10*3/uL 150-450 [facility] Work Phone: Absolute lymphocyte counton 08-09-2021 Lymphocytes Auto (Unsp spec) [#/Vol] 1.78 10*3/uL 0.83-4.51 [facility] Work Phone: Basophil percentageon 2021 Basophils/100 WBC (Bld) 0.5 % 0-1 [facility] Work Phone: [phone] Eosinophils/100 WBC (Bld) 0.1 % 0-5 [facility] Work Phone: Neutrophils (Bld) [#/Vol] 6.0 10*3/uL 2.0-7.7 [facility] Work Phone: Neutrophils/100 WBC (Bld) 71.3 % 47-70 [facility] Work Phone: WBC (Bld) [#/Vol] 8.4 10*3/uL 4.4-11.0 [facility] Work [facility]: Blood erythrocytes count (nu mber/volume)on 08-09-2021 RBC (Bld) [#/Vol] 4.37 10*6/uL 4.6-6.2 [facility] Work [facility]: Blood hemoglobin measurement (mass/volume)on 08-09-2021 Hemoglobin (Bld) [Mass/Vol] 13.5 g/dL 13.0-16.5 [facility] Work Phone: [phone] Blood lymphocytes/100 leukoc yteson 08-09-2021 Lymphocytes/100 WBC (Bld) 21.2 % 19-41 [facility] Work Phone: Blood monocytes/100 leukocyt eson 08-09-2021 Monocytes/100 WBC (Bld) 6.5 % 0-10 [facility] Work Phone: Blood platelet mean volumeon 08-09-2021 Platelet mean volume (Bld) [Entitic vol] 11.1 fL 6.2-12.0 [facility] Work Phone: Determination of erythrocyte mean corpuscular volume (MCV)on 08-09-2021 MCV (RBC) [Entitic vol] 91.3 fL 80-94 [facility] Work Phone: Hematocrit Auto (Bld) [Volum e fraction]on 08-09-2021 Hematocrit (Bld) [Volume fraction] 39.9 % 40-54 [facility] Work Phone: Laboratory - Hematology and Cell countson 08-09-2021 Erythrocyte distribution width (RBC) [Entitic vol] 41.4 fL 35.1-43.9 [facility] Work Phone: Erythrocyte distribution width (RBC) [Ratio] 12.5 % 11.6-14.6 [facility] Work Phone: Immature granulocytes/100 WBC (Bld) 0.400 % 0.0-0.9 [facility] Work Phone: Comment on above: IG% - Immature Granu locytes (promyelocytes, myelocytes and metamyelocytes) > 1% indicates that a LEFT SHIFT is Present. MCH (RBC) [Entitic mass] 30.9 pg 27.0-32.0 [facility] Work Phone: Nucleated RBC/100 WBC (Bld) [Ratio] 0 % 0-5 [facility] Work Phone: MCHC Auto (RBC) [Mass/Vol]on 08-09-2021 MCHC (RBC) [Mass/Vol] 33.8 g/dL 32-36 [facility] Work Phone: Platelets bldon 08-09-2021 Platelets (Bld) [#/Vol] 177 10*3/uL 150-450 [facility] Work Phone: Absolute lymphocyte counton 08-02-2021 Lymphocytes Auto (Unsp spec) [#/Vol] 1.69 10*3/uL 0.83-4.51 [facility] Work Phone: Basophil percentageon 2021 Basophils/100 WBC (Bld) 0.3 % 0-1 [facility] Work Phone: Eosinophils/100 WBC (Bld) 0.3 % 0-5 [facility] Work Phone: Neutrophils (Bld) [#/Vol] 3.8 10*3/uL 2.0-7.7 [facility] Work Phone: Neutrophils/100 WBC (Bld) 61.9 % 47-70 [facility] Work Phone: WBC (Bld) [#/Vol] 6.1 10*3/uL 4.4-11.0 [facility] Work Phone: Blood erythrocytes count (nu mber/volume)on 08-02-2021 RBC (Bld) [#/Vol] 4.54 10*6/uL 4.6-6.2 [facility] Work Phone: Blood hemoglobin measurement (mass/volume)on 08-02-2021 Hemoglobin (Bld) [Mass/Vol] 13.8 g/dL 13.0-16.5 [facility] Work Phone: Blood lymphocytes/100 leukoc yteson 08-02-2021 Lymphocytes/100 WBC (Bld) 27.7 % 19-41 [facility] Work Phone: Blood monocytes/100 leukocyt eson 08-02-2021 Monocytes/100 WBC (Bld) 9.5 % 0-10 [facility] Work Phone: Blood platelet mean volumeon 08-02-2021 Platelet mean volume (Bld) [Entitic vol] 11.2 fL 6.2-12.0 [facility] Work Phone: Determination of erythrocyte mean corpuscular volume (MCV)on 08-02-2021 MCV (RBC) [Entitic vol] 90.1 fL 80-94 [facility] Work Phone: Hematocrit Auto (Bld) [Volum e fraction]on 08-02-2021 Hematocrit (Bld) [Volume fraction] 40.9 % 40-54 [facility] Work Phone: Laboratory - Hematology and Cell countson 08-02-2021 Erythrocyte distribution width (RBC) [Entitic vol] 40.3 fL 35.1-43.9 [facility] Work Phone: Erythrocyte distribution width (RBC) [Ratio] 12.4 % 11.6-14.6 [facility] Work Phone: Immature granulocytes/100 WBC (Bld) 0.300 % 0.0-0.9 [facility] Work Phone: Comment on above: IG% - Immature Granu locytes (promyelocytes, myelocytes and metamyelocytes) > 1% indicates that a LEFT SHIFT is Present. MCH (RBC) [Entitic mass] 30.4 pg 27.0-32.0 [facility] Work Phone: Nucleated RBC/100 WBC (Bld) [Ratio] 0 % 0-5 [facility] Work Phone: MCHC Auto (RBC) [Mass/Vol]on 08-02-2021 MCHC (RBC) [Mass/Vol] 33.7 g/dL 32-36 [facility] Work Phone: Platelets bldon 08-02-2021 Platelets (Bld) [#/Vol] 192 10*3/uL 150-450 [facility] Work Phone: [phone] Absolute lymphocyte counton 07-26-2021 Lymphocytes Auto (Unsp spec) [#/Vol] 1.83 10*3/uL 0.83-4.51 [facility] Work Phone: Basophil percentageon 2021 Basophils/100 WBC (Bld) 0.5 % 0-1 [facility] Work Phone: Eosinophils/100 WBC (Bld) 0.3 % 0-5 [facility] Work Phone: Neutrophils (Bld) [#/Vol] 3.3 10*3/uL 2.0-7.7 [facility] Work Phone: Neutrophils/100 WBC (Bld) 58.1 % 47-70 [facility] Work Phone: WBC (Bld) [#/Vol] 5.7 10*3/uL 4.4-11.0 [facility] Work Phone: Blood erythrocytes count (nu mber/volume)on 07-26-2021 RBC (Bld) [#/Vol] 4.21 10*6/uL 4.6-6.2 [facility]: Blood hemoglobin measurement (mass/volume)on 07-26-2021 Hemoglobin (Bld) [Mass/Vol] 12.9 g/dL 13.0-16.5 [facility] Work Phone: Blood lymphocytes/100 leukoc yteson 07-26-2021 Lymphocytes/100 WBC (Bld) 31.9 % 19-41 [facility] Work Phone: Blood monocytes/100 leukocyt eson 07-26-2021 Monocytes/100 WBC (Bld) 8.9 % 0-10 [facility] Work Phone: Blood platelet mean volumeon 07-26-2021 Platelet mean volume (Bld) [Entitic vol] 11.5 fL 6.2-12.0 [facility] Work Phone: Determination of erythrocyte mean corpuscular volume (MCV)on 07-26-2021 MCV (RBC) [Entitic vol] 90.7 fL 80-94 [facility] Work Phone: Hematocrit Auto (Bld) [Volum e fraction]on 07-26-2021 Hematocrit (Bld) [Volume fraction] 38.2 % 40-54 [facility] Work Phone: Laboratory - Hematology and Cell countson 07-26-2021 Erythrocyte distribution width (RBC) [Entitic vol] 41.2 fL 35.1-43.9 [facility] Work Phone: Erythrocyte distribution width (RBC) [Ratio] 12.5 % 11.6-14.6 [facility] Work Phone: Immature granulocytes/100 WBC (Bld) 0.300 % 0.0-0.9 [facility] Work Phone: Comment on above: IG% - Immature Granu locytes (promyelocytes, myelocytes and metamyelocytes) > 1% indicates that a LEFT SHIFT is Present. MCH (RBC) [Entitic mass] 30.6 pg 27.0-32.0 [facility] Work Phone: Nucleated RBC/100 WBC (Bld) [Ratio] 0 % 0-5 [facility] Work Phone: MCHC Auto (RBC) [Mass/Vol]on 07-26-2021 MCHC (RBC) [Mass/Vol] 33.8 g/dL 32-36 [facility] Work Phone: Platelets bldon 07-26-2021 Platelets (Bld) [#/Vol] 180 10*3/uL 150-450 [facility] Work Phone: Absolute lymphocyte counton 07-19-2021 Lymphocytes Auto (Unsp spec) [#/Vol] 2.04 10*3/uL 0.83-4.51 [facility] Work Phone: Basophil percentageon 2021 Basophils/100 WBC (Bld) 0.3 % 0-1 [facility] Work Phone: Eosinophils/100 WBC (Bld) 0.4 % 0-5 [facility] Work Phone: Neutrophils (Bld) [#/Vol] 4.0 10*3/uL 2.0-7.7 [facility] Work Phone: Neutrophils/100 WBC (Bld) 59.2 % 47-70 [facility] Work Phone: WBC (Bld) [#/Vol] 6.7 10*3/uL 4.4-11.0 [facility] Work Phone: Blood erythrocytes count (nu mber/volume)on 07-19-2021 RBC (Bld) [#/Vol] 4.53 10*6/uL 4.6-6.2 [facility] Work [facility]: Blood hemoglobin measurement (mass/volume)on 07-19-2021 Hemoglobin (Bld) [Mass/Vol] 14.1 g/dL 13.0-16.5 [facility] Work Phone: Blood lymphocytes/100 leukoc yteson 07-19-2021 Lymphocytes/100 WBC (Bld) 30.5 % 19-41 [facility] Work Phone: Blood monocytes/100 leukocyt eson 07-19-2021 Monocytes/100 WBC (Bld) 9.0 % 0-10 [facility] Work Phone: Blood platelet mean volumeon 07-19-2021 Platelet mean volume (Bld) [Entitic vol] 11.4 fL 6.2-12.0 [facility] Work Phone: Determination of erythrocyte mean corpuscular volume (MCV)on 07-19-2021 MCV (RBC) [Entitic vol] 90.5 fL 80-94 [facility] Work Phone: Hematocrit Auto (Bld) [Volum e fraction]on 07-19-2021 Hematocrit (Bld) [Volume fraction] 41.0 % 40-54 [facility] Work Phone: Laboratory - Hematology and Cell countson 07-19-2021 Erythrocyte distribution width (RBC) [Entitic vol] 41.1 fL 35.1-43.9 [facility] Work Phone: Erythrocyte distribution width (RBC) [Ratio] 12.5 % 11.6-14.6 [facility] Work Phone: Immature granulocytes/100 WBC (Bld) 0.600 % 0.0-0.9 [facility] Work Phone: Comment on above: IG% - Immature Granu locytes (promyelocytes, myelocytes and metamyelocytes) > 1% indicates that a LEFT SHIFT is Present. MCH (RBC) [Entitic mass] 31.1 pg 27.0-32.0 [facility] Work Phone: Nucleated RBC/100 WBC (Bld) [Ratio] 0 % 0-5 [facility] Work Phone: MCHC Auto (RBC) [Mass/Vol]on 07-19-2021 MCHC (RBC) [Mass/Vol] 34.4 g/dL 32-36 [facility]: Platelets bldon 07-19-2021 Platelets (Bld) [#/Vol] 193 10*3/uL 150-450 [facility] Work Phone: Absolute lymphocyte counton 07-12-2021 Lymphocytes Auto (Unsp spec) [#/Vol] 1.42 10*3/uL 0.83-4.51 [facility] Work Phone: Basophil percentageon 2021 Basophils/100 WBC (Bld) 0.6 % 0-1 [facility] Work Phone: [phone] Eosinophils/100 WBC (Bld) 0.3 % 0-5 [facility] Work Phone: Neutrophils (Bld) [#/Vol] 4.7 10*3/uL 2.0-7.7 [facility] Work Phone: Neutrophils/100 WBC (Bld) 67.3 % 47-70 [facility] Work Phone: WBC (Bld) [#/Vol] 7.0 10*3/uL 4.4-11.0 [facility] Work Phone: Blood erythrocytes count (nu mber/volume)on 07-12-2021 RBC (Bld) [#/Vol] 4.61 10*6/uL 4.6-6.2 [facility] Work [facility]: Blood hemoglobin measurement (mass/volume)on 07-12-2021 Hemoglobin (Bld) [Mass/Vol] 14.4 g/dL 13.0-16.5 [facility] Work Phone: Blood lymphocytes/100 leukoc yteson 07-12-2021 Lymphocytes/100 WBC (Bld) 20.4 % 19-41 [facility] Work Phone: [phone] Blood monocytes/100 leukocyt eson 07-12-2021 Monocytes/100 WBC (Bld) 11.1 % 0-10 [facility] Work Phone: Blood platelet mean volumeon 07-12-2021 Platelet mean volume (Bld) [Entitic vol] 11.2 fL 6.2-12.0 [facility] Work Phone: Determination of erythrocyte mean corpuscular volume (MCV)on 07-12-2021 MCV (RBC) [Entitic vol] 91.1 fL 80-94 [facility] Work Phone: Hematocrit Auto (Bld) [Volum e fraction]on 07-12-2021 Hematocrit (Bld) [Volume fraction] 42.0 % 40-54 [facility] Work Phone: Laboratory - Hematology and Cell countson 07-12-2021 Erythrocyte distribution width (RBC) [Entitic vol] 41.4 fL 35.1-43.9 [facility] Work Phone: Erythrocyte distribution width (RBC) [Ratio] 12.6 % 11.6-14.6 [facility] Work Phone: Immature granulocytes/100 WBC (Bld) 0.300 % 0.0-0.9 [facility] Work Phone: Comment on above: IG% - Immature Granu locytes (promyelocytes, myelocytes and metamyelocytes) > 1% indicates that a LEFT SHIFT is Present. MCH (RBC) [Entitic mass] 31.2 pg 27.0-32.0 [facility] Work Phone: Nucleated RBC/100 WBC (Bld) [Ratio] 0 % 0-5 [facility] Work Phone: MCHC Auto (RBC) [Mass/Vol]on 07-12-2021 MCHC (RBC) [Mass/Vol] 34.3 g/dL 32-36 [facility] Work Phone: Platelets bldon 07-12-2021 Platelets (Bld) [#/Vol] 184 10*3/uL 150-450 [facility] Work Phone: Absolute lymphocyte counton 07-05-2021 Lymphocytes Auto (Unsp spec) [#/Vol] 1.55 10*3/uL 0.83-4.51 [facility] Work Phone: Basophil percentageon 2021 Basophils/100 WBC (Bld) 0.4 % 0-1 [facility] Work Phone: Cholesterol [Mass/Vol] 148 mg/dL <200 [facility] Work Phone: Comment on above: <200 mg/dL Desirable 200-240 mg/dL Borderline >240 mg/dL High Risk Eosinophils/100 WBC (Bld) 0.3 % 0-5 [facility] Work Phone: Neutrophils (Bld) [#/Vol] 5.5 10*3/uL 2.0-7.7 [facility] Work Phone: Neutrophils/100 WBC (Bld) 70.9 % 47-70 [facility] Work Phone: Triglyceride [Mass/Vol] 201 mg/dL <199 [facility] Work Phone: Comment on above: The drugs N-Acetylcy steine and Metamizole may falsely depress this assay.Serum Triglycerides Reference Interval Normal <150 mg/dL Borderline high 150 - 199 mg/dL High 200 - 499 mg/dL Very High > or = 500 mg/dL WBC (Bld) [#/Vol] 7.8 10*3/uL 4.4-11.0 [facility] Work Phone: Blood erythrocytes count (nu mber/volume)on 07-05-2021 RBC (Bld) [#/Vol] 4.46 10*6/uL 4.6-6.2 [facility] Work Phone: Blood hemoglobin measurement (mass/volume)on 07-05-2021 Hemoglobin (Bld) [Mass/Vol] 13.4 g/dL 13.0-16.5 [facility] Work Phone: Blood lymphocytes/100 leukoc yteson 07-05-2021 Lymphocytes/100 WBC (Bld) 20.0 % 19-41 [facility] Work Phone: Blood monocytes/100 leukocyt eson 07-05-2021 Monocytes/100 WBC (Bld) 8.1 % 0-10 [facility] Work Phone: Blood platelet mean volumeon 07-05-2021 Platelet mean volume (Bld) [Entitic vol] 11.7 fL 6.2-12.0 [facility] Work Phone: Determination of erythrocyte mean corpuscular volume (MCV)on 07-05-2021 MCV (RBC) [Entitic vol] 91.0 fL 80-94 [facility] Work Phone: Hematocrit Auto (Bld) [Volum e fraction]on 07-05-2021 Hematocrit (Bld) [Volume fraction] 40.6 % 40-54 [facility] Work Phone: Laboratory - Hematology and Cell countson 07-05-2021 Erythrocyte distribution width (RBC) [Entitic vol] 41.9 fL 35.1-43.9 [facility] Work Phone: Erythrocyte distribution width (RBC) [Ratio] 12.8 % 11.6-14.6 [facility] Work Phone: Immature granulocytes/100 WBC (Bld) 0.300 % 0.0-0.9 [facility] Work Phone: Comment on above: IG% - Immature Granu locytes (promyelocytes, myelocytes and metamyelocytes) > 1% indicates that a LEFT SHIFT is Present. MCH (RBC) [Entitic mass] 30.0 pg 27.0-32.0 [facility] Work Phone: Nucleated RBC/100 WBC (Bld) [Ratio] 0 % 0-5 [facility] Work Phone: MCHC Auto (RBC) [Mass/Vol]on 07-05-2021 MCHC (RBC) [Mass/Vol] 33.0 g/dL 32-36 [facility] Work Phone: Platelets bldon 07-05-2021 Platelets (Bld) [#/Vol] 186 10*3/uL 150-450 [facility] Work Phone: Serum or plasma cholesterol in HDL measurement (mass/volume)on 07-05-2021 Cholesterol in HDL [Mass/Vol] 30 mg/dL >40 [facility] Work Phone: Comment on above: The drugs N-Acetylcy steine and Metamizole may falsely depress this assay. Reference Range HDL <40 mg/dL Low HDL Cholesterol HDL >or= 60 mg/dL High HDL Cholesterol Serum or plasma cholesterol in VLDL measurement (mass/volume)on 07-05-2021 Cholesterol in VLDL [Mass/Vol] 40 mg/dL 5-40 [facility] Work Phone: Serum or plasma low density lipoprotein (LDL) cholesterol measurement (mass/volume)on 07-05-2021 Cholesterol in LDL [Mass/Vol] 78 mg/dL 0-130 [facility] Work Phone: Absolute lymphocyte counton 06-28-2021 Lymphocytes Auto (Unsp spec) [#/Vol] 2.01 10*3/uL 0.83-4.51 [facility] Work Phone: Basophil percentageon 2021 Basophils/100 WBC (Bld) 0.5 % 0-1 [facility] Work Phone: Eosinophils/100 WBC (Bld) 0.3 % 0-5 [facility] Work Phone: Neutrophils (Bld) [#/Vol] 3.3 10*3/uL 2.0-7.7 [facility] Work Phone: Neutrophils/100 WBC (Bld) 55.5 % 47-70 [facility] Work Phone: WBC (Bld) [#/Vol] 6.0 10*3/uL 4.4-11.0 [facility] Work Phone: Blood erythrocytes count (nu mber/volume)on 06-28-2021 RBC (Bld) [#/Vol] 4.32 10*6/uL 4.6-6.2 [facility] Work [facility]: Blood hemoglobin measurement (mass/volume)on 06-28-2021 Hemoglobin (Bld) [Mass/Vol] 13.5 g/dL 13.0-16.5 [facility] Work Phone: Blood lymphocytes/100 leukoc yteson 06-28-2021 Lymphocytes/100 WBC (Bld) 33.5 % 19-41 [facility] Work Phone: Blood monocytes/100 leukocyt eson 06-28-2021 Monocytes/100 WBC (Bld) 10.0 % 0-10 [facility] Work Phone: Blood platelet mean volumeon 06-28-2021 Platelet mean volume (Bld) [Entitic vol] 11.8 fL 6.2-12.0 [facility] Work Phone: Determination of erythrocyte mean corpuscular volume (MCV)on 06-28-2021 MCV (RBC) [Entitic vol] 89.8 fL 80-94 [facility] Work Phone: Hematocrit Auto (Bld) [Volum e fraction]on 06-28-2021 Hematocrit (Bld) [Volume fraction] 38.8 % 40-54 [facility] Work Phone: Laboratory - Hematology and Cell countson 06-28-2021 Erythrocyte distribution width (RBC) [Entitic vol] 40.6 fL 35.1-43.9 [facility] Work Phone: Erythrocyte distribution width (RBC) [Ratio] 12.5 % 11.6-14.6 [facility] Work Phone: Immature granulocytes/100 WBC (Bld) 0.200 % 0.0-0.9 [facility] Work Phone: Comment on above: IG% - Immature Granu locytes (promyelocytes, myelocytes and metamyelocytes) > 1% indicates that a LEFT SHIFT is Present. MCH (RBC) [Entitic mass] 31.3 pg 27.0-32.0 [facility] Work Phone: Nucleated RBC/100 WBC (Bld) [Ratio] 0 % 0-5 [facility] Work Phone: [phone] MCHC Auto (RBC) [Mass/Vol]on 06-28-2021 MCHC (RBC) [Mass/Vol] 34.8 g/dL 32-36 [facility] Work Phone: [phone] Platelets bldon 06-28-2021 Platelets (Bld) [#/Vol] 185 10*3/uL 150-450 [facility] Work Phone: [phone] Absolute lymphocyte counton 06-21-2021 Lymphocytes Auto (Unsp spec) [#/Vol] 1.78 10*3/uL 0.83-4.51 [facility] Work Phone: Basophil percentageon 2021 Basophils/100 WBC (Bld) 0.3 % 0-1 [facility] Work Phone: [phone] Eosinophils/100 WBC (Bld) 0.4 % 0-5 [facility] Work Phone: [phone] Neutrophils (Bld) [#/Vol] 4.2 10*3/uL 2.0-7.7 [facility] Work Phone: [phone] Neutrophils/100 WBC (Bld) 62.7 % 47-70 [facility] Work Phone: [phone] WBC (Bld) [#/Vol] 6.8 10*3/uL 4.4-11.0 [facility] Work [facility]: [phone] Blood erythrocytes count (nu mber/volume)on 06-21-2021 RBC (Bld) [#/Vol] 4.21 10*6/uL 4.6-6.2 [facility] Work [facility]: Blood hemoglobin measurement (mass/volume)on 06-21-2021 Hemoglobin (Bld) [Mass/Vol] 13.3 g/dL 13.0-16.5 [facility] Work Phone: Blood lymphocytes/100 leukoc yteson 06-21-2021 Lymphocytes/100 WBC (Bld) 26.3 % 19-41 [facility] Work Phone: Blood monocytes/100 leukocyt eson 06-21-2021 Monocytes/100 WBC (Bld) 9.9 % 0-10 [facility] Work Phone: Blood platelet mean volumeon 06-21-2021 Platelet mean volume (Bld) [Entitic vol] 11.5 fL 6.2-12.0 [facility] Work Phone: Determination of erythrocyte mean corpuscular volume (MCV)on 06-21-2021 MCV (RBC) [Entitic vol] 91.0 fL 80-94 [facility] Work Phone: Hematocrit Auto (Bld) [Volum e fraction]on 06-21-2021 Hematocrit (Bld) [Volume fraction] 38.3 % 40-54 [facility] Work Phone: Laboratory - Hematology and Cell countson 06-21-2021 Erythrocyte distribution width (RBC) [Entitic vol] 40.2 fL 35.1-43.9 [facility] Work Phone: Erythrocyte distribution width (RBC) [Ratio] 12.2 % 11.6-14.6 [facility] Work Phone: Immature granulocytes/100 WBC (Bld) 0.400 % 0.0-0.9 [facility] Work Phone: Comment on above: IG% - Immature Granu locytes (promyelocytes, myelocytes and metamyelocytes) > 1% indicates that a LEFT SHIFT is Present. MCH (RBC) [Entitic mass] 31.6 pg 27.0-32.0 [facility] Work Phone: Nucleated RBC/100 WBC (Bld) [Ratio] 0 % 0-5 [facility] Work Phone: MCHC Auto (RBC) [Mass/Vol]on 06-21-2021 MCHC (RBC) [Mass/Vol] 34.7 g/dL 32-36 [facility] Work Phone: Platelets bldon 06-21-2021 Platelets (Bld) [#/Vol] 217 10*3/uL 150-450 [facility] Work Phone: Absolute lymphocyte counton 06-14-2021 Lymphocytes Auto (Unsp spec) [#/Vol] 1.41 10*3/uL 0.83-4.51 [facility] Work Phone: Basophil percentageon 2021 Basophils/100 WBC (Bld) 0.4 % 0-1 [facility] Work Phone: [phone] Chloride [Moles/Vol] 106 mmol/L 98-107 [facility] Work Phone: [phone] Eosinophils/100 WBC (Bld) 0.6 % 0-5 [facility] Work Phone: [phone] Glucose [Mass/Vol] 121 mg/dL 74-106 [facility] Work Phone: Comment on above: Fasting Glucose resu lt from 100 to 125 mg/dL suggests IMPAIRED HOMEOSTASIS per A.D.A. criteria. Neutrophils (Bld) [#/Vol] 4.8 10*3/uL 2.0-7.7 [facility] Work Phone: [phone] Neutrophils/100 WBC (Bld) 69.9 % 47-70 [facility] Work Phone: [phone] Potassium [Moles/Vol] 3.7 mmol/L 3.5-5.1 [facility] Work Phone: [phone] Sodium [Moles/Vol] 140 mmol/L 136-145 [facility] Work Phone: WBC (Bld) [#/Vol] 6.8 10*3/uL 4.4-11.0 [facility] Work Phone: [phone] Blood erythrocytes count (nu mber/volume)on 06-14-2021 RBC (Bld) [#/Vol] 4.78 10*6/uL 4.6-6.2 [facility] Work Phone: Blood hemoglobin measurement (mass/volume)on 06-14-2021 Hemoglobin (Bld) [Mass/Vol] 14.9 g/dL 13.0-16.5 [facility] Work Phone: Blood lymphocytes/100 leukoc yteson 06-14-2021 Lymphocytes/100 WBC (Bld) 20.8 % 19-41 [facility] Work Phone: Blood monocytes/100 leukocyt eson 06-14-2021 Monocytes/100 WBC (Bld) 7.7 % 0-10 [facility] Work Phone: Blood platelet mean volumeon 06-14-2021 Platelet mean volume (Bld) [Entitic vol] 11.5 fL 6.2-12.0 [facility] Work Phone: Determination of erythrocyte mean corpuscular volume (MCV)on 06-14-2021 MCV (RBC) [Entitic vol] 89.5 fL 80-94 [facility] Work Phone: Hematocrit Auto (Bld) [Volum e fraction]on 06-14-2021 Hematocrit (Bld) [Volume fraction] 42.8 % 40-54 [facility] Work Phone: Laboratory - Chemistry and C hemistry - challengeon 06-14-2021 CO2 [Moles/Vol] 27.0 mmol/L 21.0-32.0 [facility] Work Phone: Urea nitrogen/Creatinine [Mass ratio] 35.0 mg/mg 10-20 [facility] Work Phone: Laboratory - Hematology and Cell countson 06-14-2021 Erythrocyte distribution width (RBC) [Entitic vol] 39.3 fL 35.1-43.9 [facility] Work Phone: Erythrocyte distribution width (RBC) [Ratio] 12.0 % 11.6-14.6 [facility] Work Phone: Immature granulocytes/100 WBC (Bld) 0.600 % 0.0-0.9 [facility] Work Phone: Comment on above: IG% - Immature Granu locytes (promyelocytes, myelocytes and metamyelocytes) > 1% indicates that a LEFT SHIFT is Present. MCH (RBC) [Entitic mass] 31.2 pg 27.0-32.0 [facility] Work Phone: Nucleated RBC/100 WBC (Bld) [Ratio] 0 % 0-5 [facility] Work Phone: MCHC Auto (RBC) [Mass/Vol]on 06-14-2021 MCHC (RBC) [Mass/Vol] 34.8 g/dL 32-36 [facility] Work Phone: No Panel Informationon 06-14 Estimated GFR (MDRD) Amer 185 mL/min >60 [facility] Work Phone: Comment on above: GFR Calc Estimated GFR (MDRD) Non-Af Amer 153 mL/min >60 [facility] Work Phone: Comment on above: Non- GFR Calc Platelets bldon 06-14-2021 Platelets (Bld) [#/Vol] 223 10*3/uL 150-450 [facility] Work Phone: Serum or plasma calcium gordy urement (mass/volume)on 06-14-2021 Calcium [Mass/Vol] 8.0 mg/dL 8.5-10.1 [facility] Work Phone: Serum or plasma creatinine m easurement (mass/volume)on 06-14-2021 Creatinine [Mass/Vol] 0.57 mg/dL 0.70-1.30 [facility] Work Phone: Comment on above: The validity of the calculated GFR & GFRAA in patients over 70 years has not been determined. Clinical correlation is essential. Serum or plasma urea nitroge n measurement (mass/volume)on 06-14-2021 Urea nitrogen [Mass/Vol] 20 mg/dL 7-18 [facility] Work Phone: Thin prep Papanicolaou smear with manual screeningon 06-14-2021 Thin prep Papanicolaou smear with manual screening 7 5-15 [facility] Work Phone: Absolute lymphocyte counton 06-07-2021 Lymphocytes Auto (Unsp spec) [#/Vol] 1.38 10*3/uL 0.83-4.51 [facility] Work Phone: Basophil percentageon 2021 Basophils/100 WBC (Bld) 0.2 % 0-1 [facility] Work Phone: Eosinophils/100 WBC (Bld) 0.0 % 0-5 [facility] Work Phone: Neutrophils (Bld) [#/Vol] 7.3 10*3/uL 2.0-7.7 [facility] Work Phone: Neutrophils/100 WBC (Bld) 75.3 % 47-70 [facility] Work Phone: WBC (Bld) [#/Vol] 9.7 10*3/uL 4.4-11.0 [facility] Work Phone: Blood erythrocytes count (nu mber/volume)on 06-07-2021 RBC (Bld) [#/Vol] 4.48 10*6/uL 4.6-6.2 [facility] Work Phone: Blood hemoglobin measurement (mass/volume)on 06-07-2021 Hemoglobin (Bld) [Mass/Vol] 13.8 g/dL 13.0-16.5 [facility] Work Phone: Blood lymphocytes/100 leukoc yteson 06-07-2021 Lymphocytes/100 WBC (Bld) 14.2 % 19-41 [facility] Work Phone: Blood monocytes/100 leukocyt eson 06-07-2021 Monocytes/100 WBC (Bld) 10.2 % 0-10 [facility] Work Phone: Blood platelet mean volumeon 06-07-2021 Platelet mean volume (Bld) [Entitic vol] 11.9 fL 6.2-12.0 [facility] Work Phone: Determination of erythrocyte mean corpuscular volume (MCV)on 06-07-2021 MCV (RBC) [Entitic vol] 92.9 fL 80-94 [facility] Work Phone: Hematocrit Auto (Bld) [Volum e fraction]on 06-07-2021 Hematocrit (Bld) [Volume fraction] 41.6 % 40-54 [facility] Work Phone: Laboratory - Hematology and Cell countson 06-07-2021 Erythrocyte distribution width (RBC) [Entitic vol] 43.8 fL 35.1-43.9 [facility] Work Phone: Erythrocyte distribution width (RBC) [Ratio] 12.8 % 11.6-14.6 [facility] Work Phone: Immature granulocytes/100 WBC (Bld) 0.100 % 0.0-0.9 [facility] Work Phone: Comment on above: IG% - Immature Granu locytes (promyelocytes, myelocytes and metamyelocytes) > 1% indicates that a LEFT SHIFT is Present. MCH (RBC) [Entitic mass] 30.8 pg 27.0-32.0 [facility] Work Phone: Nucleated RBC/100 WBC (Bld) [Ratio] 0 % 0-5 [facility] Work Phone: MCHC Auto (RBC) [Mass/Vol]on 06-07-2021 MCHC (RBC) [Mass/Vol] 33.2 g/dL 32-36 [facility] Work Phone: Platelets bldon 06-07-2021 Platelets (Bld) [#/Vol] 152 10*3/uL 150-450 [facility] Work Phone: Absolute lymphocyte counton 05-31-2021 Lymphocytes Auto (Unsp spec) [#/Vol] 1.72 10*3/uL 0.83-4.51 [facility] Work Phone: [phone] Basophil percentageon 2021 Basophils/100 WBC (Bld) 0.7 % 0-1 [facility] Work Phone: Eosinophils/100 WBC (Bld) 1.1 % 0-5 [facility] Work Phone: Neutrophils (Bld) [#/Vol] 3.3 10*3/uL 2.0-7.7 [facility] Work Phone: Neutrophils/100 WBC (Bld) 58.5 % 47-70 [facility] Work Phone: WBC (Bld) [#/Vol] 5.6 10*3/uL 4.4-11.0 [facility]: Blood erythrocytes count (nu mber/volume)on 05-31-2021 RBC (Bld) [#/Vol] 4.44 10*6/uL 4.6-6.2 [facility]: Blood hemoglobin measurement (mass/volume)on 05-31-2021 Hemoglobin (Bld) [Mass/Vol] 13.6 g/dL 13.0-16.5 [facility] Work Phone: Blood lymphocytes/100 leukoc yteson 05-31-2021 Lymphocytes/100 WBC (Bld) 30.7 % 19-41 [facility] Work Phone: Blood monocytes/100 leukocyt eson 05-31-2021 Monocytes/100 WBC (Bld) 8.6 % 0-10 [facility] Work Phone: [phone] Blood platelet mean volumeon 05-31-2021 Platelet mean volume (Bld) [Entitic vol] 11.2 fL 6.2-12.0 [facility] Work Phone: Determination of erythrocyte mean corpuscular volume (MCV)on 05-31-2021 MCV (RBC) [Entitic vol] 92.1 fL 80-94 [facility] Work Phone: Hematocrit Auto (Bld) [Volum e fraction]on 05-31-2021 Hematocrit (Bld) [Volume fraction] 40.9 % 40-54 [facility] Work Phone: Laboratory - Hematology and Cell countson 05-31-2021 Erythrocyte distribution width (RBC) [Entitic vol] 42.2 fL 35.1-43.9 [facility] Work Phone: Erythrocyte distribution width (RBC) [Ratio] 12.4 % 11.6-14.6 [facility] Work Phone: Immature granulocytes/100 WBC (Bld) 0.400 % 0.0-0.9 [facility] Work Phone: Comment on above: IG% - Immature Granu locytes (promyelocytes, myelocytes and metamyelocytes) > 1% indicates that a LEFT SHIFT is Present. MCH (RBC) [Entitic mass] 30.6 pg 27.0-32.0 [facility] Work Phone: Nucleated RBC/100 WBC (Bld) [Ratio] 0 % 0-5 [facility] Work Phone: [phone] MCHC Auto (RBC) [Mass/Vol]on 05-31-2021 MCHC (RBC) [Mass/Vol] 33.3 g/dL 32-36 [facility] Work Phone: Platelets bldon 05-31-2021 Platelets (Bld) [#/Vol] 189 10*3/uL 150-450 [facility] Work Phone: Absolute lymphocyte counton 05-24-2021 Lymphocytes Auto (Unsp spec) [#/Vol] 1.58 10*3/uL 0.83-4.51 [facility] Work Phone: [phone] Basophil percentageon 2021 Basophils/100 WBC (Bld) 0.8 % 0-1 [facility] Work Phone: Eosinophils/100 WBC (Bld) 2.4 % 0-5 [facility] Work Phone: Neutrophils (Bld) [#/Vol] 3.8 10*3/uL 2.0-7.7 [facility] Work Phone: Neutrophils/100 WBC (Bld) 60.3 % 47-70 [facility] Work Phone: [phone] WBC (Bld) [#/Vol] 6.3 10*3/uL 4.4-11.0 [facility] Work [facility]: Blood erythrocytes count (nu mber/volume)on 05-24-2021 RBC (Bld) [#/Vol] 4.50 10*6/uL 4.6-6.2 [facility] Work [facility]: Blood hemoglobin measurement (mass/volume)on 05-24-2021 Hemoglobin (Bld) [Mass/Vol] 13.7 g/dL 13.0-16.5 [facility] Work Phone: Blood lymphocytes/100 leukoc yteson 05-24-2021 Lymphocytes/100 WBC (Bld) 25.0 % 19-41 [facility] Work Phone: Blood monocytes/100 leukocyt eson 05-24-2021 Monocytes/100 WBC (Bld) 11.2 % 0-10 [facility] Work Phone: Blood platelet mean volumeon 05-24-2021 Platelet mean volume (Bld) [Entitic vol] 11.3 fL 6.2-12.0 [facility] Work Phone: Determination of erythrocyte mean corpuscular volume (MCV)on 05-24-2021 MCV (RBC) [Entitic vol] 92.9 fL 80-94 [facility] Work Phone: Hematocrit Auto (Bld) [Volum e fraction]on 05-24-2021 Hematocrit (Bld) [Volume fraction] 41.8 % 40-54 [facility] Work Phone: Laboratory - Hematology and Cell countson 05-24-2021 Erythrocyte distribution width (RBC) [Entitic vol] 42.8 fL 35.1-43.9 [facility] Work Phone: Erythrocyte distribution width (RBC) [Ratio] 12.6 % 11.6-14.6 [facility] Work Phone: Immature granulocytes/100 WBC (Bld) 0.300 % 0.0-0.9 [facility] Work Phone: Comment on above: IG% - Immature Granu locytes (promyelocytes, myelocytes and metamyelocytes) > 1% indicates that a LEFT SHIFT is Present. MCH (RBC) [Entitic mass] 30.4 pg 27.0-32.0 [facility] Work Phone: Nucleated RBC/100 WBC (Bld) [Ratio] 0 % 0-5 [facility] Work Phone: MCHC Auto (RBC) [Mass/Vol]on 05-24-2021 MCHC (RBC) [Mass/Vol] 32.8 g/dL 32-36 [facility] Work Phone: Platelets bldon 05-24-2021 Platelets (Bld) [#/Vol] 207 10*3/uL 150-450 [facility] Work Phone: Absolute lymphocyte counton 05-17-2021 Lymphocytes Auto (Unsp spec) [#/Vol] 1.59 10*3/uL 0.83-4.51 [facility] Work Phone: Basophil percentageon 2021 Basophils/100 WBC (Bld) 0.7 % 0-1 [facility] Work Phone: Eosinophils/100 WBC (Bld) 1.7 % 0-5 [facility] Work Phone: Neutrophils (Bld) [#/Vol] 3.5 10*3/uL 2.0-7.7 [facility] Work Phone: Neutrophils/100 WBC (Bld) 59.5 % 47-70 [facility] Work Phone: WBC (Bld) [#/Vol] 5.9 10*3/uL 4.4-11.0 [facility] Work Phone: Blood erythrocytes count (nu mber/volume)on 05-17-2021 RBC (Bld) [#/Vol] 4.35 10*6/uL 4.6-6.2 [facility] Work [facility]: Blood hemoglobin measurement (mass/volume)on 05-17-2021 Hemoglobin (Bld) [Mass/Vol] 13.4 g/dL 13.0-16.5 [facility] Work Phone: Blood lymphocytes/100 leukoc yteson 05-17-2021 Lymphocytes/100 WBC (Bld) 26.9 % 19-41 [facility] Work Phone: Blood monocytes/100 leukocyt eson 05-17-2021 Monocytes/100 WBC (Bld) 11.0 % 0-10 [facility] Work Phone: Blood platelet mean volumeon 05-17-2021 Platelet mean volume (Bld) [Entitic vol] 11.5 fL 6.2-12.0 [facility] Work Phone: Determination of erythrocyte mean corpuscular volume (MCV)on 05-17-2021 MCV (RBC) [Entitic vol] 92.9 fL 80-94 [facility] Work Phone: Hematocrit Auto (Bld) [Volum e fraction]on 05-17-2021 Hematocrit (Bld) [Volume fraction] 40.4 % 40-54 [facility] Work Phone: Laboratory - Hematology and Cell countson 05-17-2021 Erythrocyte distribution width (RBC) [Entitic vol] 43.4 fL 35.1-43.9 [facility] Work Phone: Erythrocyte distribution width (RBC) [Ratio] 12.7 % 11.6-14.6 [facility] Work Phone: Immature granulocytes/100 WBC (Bld) 0.200 % 0.0-0.9 [facility] Work Phone: Comment on above: IG% - Immature Granu locytes (promyelocytes, myelocytes and metamyelocytes) > 1% indicates that a LEFT SHIFT is Present. MCH (RBC) [Entitic mass] 30.8 pg 27.0-32.0 [facility] Work Phone: Nucleated RBC/100 WBC (Bld) [Ratio] 0 % 0-5 [facility] Work Phone: MCHC Auto (RBC) [Mass/Vol]on 05-17-2021 MCHC (RBC) [Mass/Vol] 33.2 g/dL 32-36 [facility] Work Phone: Platelets bldon 05-17-2021 Platelets (Bld) [#/Vol] 171 10*3/uL 150-450 [facility] Work Phone: ED Provider Noteon 2 ED Provider Note Emergency Department Encounter [facility] ED Patient: Kathya Hooper : 1955 Date [...] Solutions Timothy Burton DO 05/15/21 1530 Normal [facility]EPART[facility] eNCOUnter Pt Name: [...] Hea (more content not included)... Normal [facility] Basophil percentageon 2021 Chloride [Moles/Vol] 105 mmol/L 98-107 [facility] Work Phone: Glucose [Mass/Vol] 96 mg/dL 74-106 [facility] Work Phone: Potassium [Moles/Vol] 3.5 mmol/L 3.5-5.1 [facility] Work Phone: Sodium [Moles/Vol] 141 mmol/L 136-145 [facility] Work Phone: Laboratory - Chemistry and C hemistry - challengeon 05-14-2021 CO2 [Moles/Vol] 30.0 mmol/L 21.0-32.0 [facility] Work Phone: Urea nitrogen/Creatinine [Mass ratio] 39.2 mg/mg 10-20 [facility] Work Phone: No Panel Informationon 05-14 Estimated GFR (MDRD) Amer 210 mL/min >60 [facility] Work Phone: Comment on above: GFR Calc Estimated GFR (MDRD) Non-Af Amer 174 mL/min >60 [facility] Work Phone: Comment on above: Non- GFR Calc Serum or plasma calcium gordy urement (mass/volume)on 05-14-2021 Calcium [Mass/Vol] 8.4 mg/dL 8.5-10.1 [facility] Work Phone: Serum or plasma creatinine m easurement (mass/volume)on 05-14-2021 Creatinine [Mass/Vol] 0.51 mg/dL 0.70-1.30 [facility] Work Phone: Comment on above: The validity of the calculated GFR & GFRAA in patients over 70 years has not been determined. Clinical correlation is essential. Serum or plasma urea nitroge n measurement (mass/volume)on 05-14-2021 Urea nitrogen [Mass/Vol] 20 mg/dL 7-18 [facility] Work Phone: Thin prep Papanicolaou smear with manual screeningon 05-14-2021 Thin prep Papanicolaou smear with manual screening 6 5-15 [facility] Work Phone: Absolute lymphocyte counton 05-10-2021 Lymphocytes Auto (Unsp spec) [#/Vol] 1.65 10*3/uL 0.83-4.51 [facility] Work Phone: Basophil percentageon 2021 Basophils/100 WBC (Bld) 0.5 % 0-1 [facility] Work Phone: Eosinophils/100 WBC (Bld) 0.7 % 0-5 [facility] Work Phone: Neutrophils (Bld) [#/Vol] 5.6 10*3/uL 2.0-7.7 [facility] Work Phone: Neutrophils/100 WBC (Bld) 69.5 % 47-70 [facility] Work Phone: WBC (Bld) [#/Vol] 8.1 10*3/uL 4.4-11.0 [facility] Work Phone: Blood erythrocytes count (nu mber/volume)on 05-10-2021 RBC (Bld) [#/Vol] 4.52 10*6/uL 4.6-6.2 [facility] Work [facility]: Blood hemoglobin measurement (mass/volume)on 05-10-2021 Hemoglobin (Bld) [Mass/Vol] 13.8 g/dL 13.0-16.5 [facility] Work Phone: Blood lymphocytes/100 leukoc yteson 05-10-2021 Lymphocytes/100 WBC (Bld) 20.4 % 19-41 [facility] Work Phone: Blood monocytes/100 leukocyt eson 05-10-2021 Monocytes/100 WBC (Bld) 8.4 % 0-10 [facility] Work Phone: Blood platelet mean volumeon 05-10-2021 Platelet mean volume (Bld) [Entitic vol] 11.3 fL 6.2-12.0 [facility] Work Phone: Determination of erythrocyte mean corpuscular volume (MCV)on 05-10-2021 MCV (RBC) [Entitic vol] 91.8 fL 80-94 [facility] Work Phone: Hematocrit Auto (Bld) [Volum e fraction]on 05-10-2021 Hematocrit (Bld) [Volume fraction] 41.5 % 40-54 [facility] Work Phone: Laboratory - Hematology and Cell countson 05-10-2021 Erythrocyte distribution width (RBC) [Entitic vol] 42.9 fL 35.1-43.9 [facility] Work Phone: Erythrocyte distribution width (RBC) [Ratio] 12.8 % 11.6-14.6 [facility] Work Phone: Immature granulocytes/100 WBC (Bld) 0.500 % 0.0-0.9 [facility] Work Phone: Comment on above: IG% - Immature Granu locytes (promyelocytes, myelocytes and metamyelocytes) > 1% indicates that a LEFT SHIFT is Present. MCH (RBC) [Entitic mass] 30.5 pg 27.0-32.0 [facility] Work Phone: Nucleated RBC/100 WBC (Bld) [Ratio] 0 % 0-5 [facility] Work Phone: MCHC Auto (RBC) [Mass/Vol]on 05-10-2021 MCHC (RBC) [Mass/Vol] 33.3 g/dL 32-36 [facility] Work Phone: Platelets bldon 05-10-2021 Platelets (Bld) [#/Vol] 191 10*3/uL 150-450 [facility] Work Phone: [phone] Absolute lymphocyte counton 05-03-2021 Lymphocytes Auto (Unsp spec) [#/Vol] 1.69 10*3/uL 0.83-4.51 [facility] Work Phone: Basophil percentageon 2021 Basophils/100 WBC (Bld) 0.6 % 0-1 [facility] Work Phone: [phone] Eosinophils/100 WBC (Bld) 0.7 % 0-5 [facility] Work Phone: Neutrophils (Bld) [#/Vol] 4.6 10*3/uL 2.0-7.7 [facility] Work Phone: [phone] Neutrophils/100 WBC (Bld) 64.4 % 47-70 [facility] Work Phone: WBC (Bld) [#/Vol] 7.2 10*3/uL 4.4-11.0 [facility] Work Phone: Blood erythrocytes count (nu mber/volume)on 05-03-2021 RBC (Bld) [#/Vol] 4.55 10*6/uL 4.6-6.2 [facility] Work [facility]: Blood hemoglobin measurement (mass/volume)on 05-03-2021 Hemoglobin (Bld) [Mass/Vol] 14.0 g/dL 13.0-16.5 [facility] Work Phone: [phone] Blood lymphocytes/100 leukoc yteson 05-03-2021 Lymphocytes/100 WBC (Bld) 23.6 % 19-41 [facility] Work Phone: Blood monocytes/100 leukocyt eson 05-03-2021 Monocytes/100 WBC (Bld) 10.3 % 0-10 [facility] Work Phone: Blood platelet mean volumeon 05-03-2021 Platelet mean volume (Bld) [Entitic vol] 11.7 fL 6.2-12.0 [facility] Work Phone: Determination of erythrocyte mean corpuscular volume (MCV)on 05-03-2021 MCV (RBC) [Entitic vol] 93.2 fL 80-94 [facility] Work Phone: Hematocrit Auto (Bld) [Volum e fraction]on 05-03-2021 Hematocrit (Bld) [Volume fraction] 42.4 % 40-54 [facility] Work Phone: Laboratory - Hematology and Cell countson 05-03-2021 Erythrocyte distribution width (RBC) [Entitic vol] 44.2 fL 35.1-43.9 [facility] Work Phone: Erythrocyte distribution width (RBC) [Ratio] 13.1 % 11.6-14.6 [facility] Work Phone: Immature granulocytes/100 WBC (Bld) 0.400 % 0.0-0.9 [facility] Work Phone: Comment on above: IG% - Immature Granu locytes (promyelocytes, myelocytes and metamyelocytes) > 1% indicates that a LEFT SHIFT is Present. MCH (RBC) [Entitic mass] 30.8 pg 27.0-32.0 [facility] Work Phone: Nucleated RBC/100 WBC (Bld) [Ratio] 0 % 0-5 [facility] Work Phone: MCHC Auto (RBC) [Mass/Vol]on 05-03-2021 MCHC (RBC) [Mass/Vol] 33.0 g/dL 32-36 [facility] Work Phone: Platelets bldon 05-03-2021 Platelets (Bld) [#/Vol] 175 10*3/uL 150-450 [facility] Work Phone: [phone] Absolute lymphocyte counton 04-26-2021 Lymphocytes Auto (Unsp spec) [#/Vol] 1.68 10*3/uL 0.83-4.51 [facility] Work Phone: Basophil percentageon 2020 Eosinophils/100 WBC (Bld) 1.1 % 0-5 [facility] Work Phone: Neutrophils (Bld) [#/Vol] 4.5 10*3/uL 2.0-7.7 [facility] Work Phone: WBC (Bld) [#/Vol] 7.2 10*3/uL 4.4-11.0 [facility] Work [facility]: Blood erythrocytes count (nu mber/volume)on 04-26-2021 RBC (Bld) [#/Vol] 4.32 10*6/uL 4.6-6.2 [facility] Work Phone: Blood hemoglobin measurement (mass/volume)on 04-26-2021 Hemoglobin (Bld) [Mass/Vol] 13.5 g/dL 13.0-16.5 [facility] Work Phone: Blood lymphocytes/100 leukoc yteson 04-26-2021 Lymphocytes/100 WBC (Bld) 23.5 % 19-41 [facility] Work Phone: [phone] Blood monocytes/100 leukocyt eson 04-26-2021 Monocytes/100 WBC (Bld) 11.0 % 0-10 [facility] Work Phone: Blood platelet mean volumeon 04-26-2021 Platelet mean volume (Bld) [Entitic vol] 11.0 fL 6.2-12.0 [facility] Work Phone: Determination of erythrocyte mean corpuscular volume (MCV)on 04-26-2021 MCV (RBC) [Entitic vol] 93.3 fL 80-94 [facility] Work Phone: Hematocrit Auto (Bld) [Volum e fraction]on 04-26-2021 Hematocrit (Bld) [Volume fraction] 40.3 % 40-54 [facility] Work Phone: Laboratory - Hematology and Cell countson 04-26-2021 Basophils/100 WBC (Unsp spec) 0.6 % 0-1 [facility] Work Phone: Erythrocyte distribution width (RBC) [Entitic vol] 45.8 fL 35.1-43.9 [facility] Work Phone: Erythrocyte distribution width (RBC) [Ratio] 13.2 % 11.6-14.6 [facility] Work Phone: Immature granulocytes/100 WBC (Bld) 0.600 % 0.0-0.9 [facility] Work Phone: Comment on above: IG% - Immature Granu locytes (promyelocytes, myelocytes and metamyelocytes) > 1% indicates that a LEFT SHIFT is Present. MCH (RBC) [Entitic mass] 31.3 pg 27.0-32.0 [facility] Work Phone: Neutrophils/100 WBC (Bld) 63.2 % 47-70 [facility] Work Phone: Nucleated RBC/100 WBC (Bld) [Ratio] 0 % 0-5 [facility] Work Phone: MCHC Auto (RBC) [Mass/Vol]on 04-26-2021 MCHC (RBC) [Mass/Vol] 33.5 g/dL 32-36 [facility] Work Phone: Platelets bldon 04-26-2021 Platelets (Bld) [#/Vol] 172 10*3/uL 150-450 [facility] Work Phone: Absolute lymphocyte counton 04-19-2021 Lymphocytes Auto (Unsp spec) [#/Vol] 1.31 10*3/uL 0.83-4.51 [facility] Work Phone: Basophil percentageon 2020 Eosinophils/100 WBC (Bld) 2.8 % 0-5 [facility] Work Phone: Neutrophils (Bld) [#/Vol] 3.0 10*3/uL 2.0-7.7 [facility] Work Phone: WBC (Bld) [#/Vol] 5.0 10*3/uL 4.4-11.0 [facility] Work Phone: Blood erythrocytes count (nu mber/volume)on 04-19-2021 RBC (Bld) [#/Vol] 4.26 10*6/uL 4.6-6.2 [facility] Work [facility]: Blood hemoglobin measurement (mass/volume)on 04-19-2021 Hemoglobin (Bld) [Mass/Vol] 13.2 g/dL 13.0-16.5 [facility] Work Phone: Blood lymphocytes/100 leukoc yteson 04-19-2021 Lymphocytes/100 WBC (Bld) 26.1 % 19-41 [facility] Work Phone: Blood monocytes/100 leukocyt eson 04-19-2021 Monocytes/100 WBC (Bld) 10.0 % 0-10 [facility] Work Phone: Blood platelet mean volumeon 04-19-2021 Platelet mean volume (Bld) [Entitic vol] 10.9 fL 6.2-12.0 [facility] Work Phone: Determination of erythrocyte mean corpuscular volume (MCV)on 04-19-2021 MCV (RBC) [Entitic vol] 93.7 fL 80-94 [facility] Work Phone: Hematocrit Auto (Bld) [Volum e fraction]on 12-20-2021 Hematocrit (Bld) [Volume fraction] 39.9 % 40-54 [facility] Work Phone: Laboratory - Hematology and Cell countson 04-19-2021 Basophils/100 WBC (Unsp spec) 1.0 % 0-1 [facility] Work Phone: [phone] Erythrocyte distribution width (RBC) [Entitic vol] 46.7 fL 35.1-43.9 [facility] Work Phone: Erythrocyte distribution width (RBC) [Ratio] 13.7 % 11.6-14.6 [facility] Work Phone: Immature granulocytes/100 WBC (Bld) 0.400 % 0.0-0.9 [facility] Work Phone: Comment on above: IG% - Immature Granu locytes (promyelocytes, myelocytes and metamyelocytes) > 1% indicates that a LEFT SHIFT is Present. MCH (RBC) [Entitic mass] 31.0 pg 27.0-32.0 [facility] Work Phone: Neutrophils/100 WBC (Bld) 59.7 % 47-70 [facility] Work Phone: Nucleated RBC/100 WBC (Bld) [Ratio] 0 % 0-5 [facility] Work Phone: MCHC Auto (RBC) [Mass/Vol]on 04-19-2021 MCHC (RBC) [Mass/Vol] 33.1 g/dL 32-36 [facility] Work Phone: [phone] Platelets bldon 04-19-2021 Platelets (Bld) [#/Vol] 165 10*3/uL 150-450 [facility] Work Phone: [phone] Absolute lymphocyte counton 04-12-2021 Lymphocytes Auto (Unsp spec) [#/Vol] 1.41 10*3/uL 0.83-4.51 [facility] Work Phone: [phone] Basophil percentageon 2020 Bilirubin [Mass/Vol] 0.40 mg/dL 0.20-1.00 [facility] Work Phone: Comment on above: For patients on eltr ombopag therapy, use of Dimension [place] TBIL is not recommended. Eosinophils/100 WBC (Bld) 0.9 % 0-5 [facility] Work Phone: Neutrophils (Bld) [#/Vol] 3.4 10*3/uL 2.0-7.7 [facility] Work Phone: Protein [Mass/Vol] 5.7 g/dL 6.4-8.2 [facility] Work Phone: WBC (Bld) [#/Vol] 5.5 10*3/uL 4.4-11.0 [facility] Work Phone: Blood erythrocytes count (nu mber/volume)on 04-12-2021 RBC (Bld) [#/Vol] 4.09 10*6/uL 4.6-6.2 [facility] Work Phone: Blood hemoglobin measurement (mass/volume)on 04-12-2021 Hemoglobin (Bld) [Mass/Vol] 12.4 g/dL 13.0-16.5 [facility] Work Phone: Blood lymphocytes/100 leukoc yteson 04-12-2021 Lymphocytes/100 WBC (Bld) 25.9 % 19-41 [facility] Work Phone: Blood monocytes/100 leukocyt eson 04-12-2021 Monocytes/100 WBC (Bld) 9.2 % 0-10 [facility] Work Phone: Blood platelet mean volumeon 04-12-2021 Platelet mean volume (Bld) [Entitic vol] 11.1 fL 6.2-12.0 [facility] Work Phone: Determination of erythrocyte mean corpuscular volume (MCV)on 04-12-2021 MCV (RBC) [Entitic vol] 93.4 fL 80-94 [facility] Work Phone: Direct bilirubinon Bilirubin.direct [Mass/Vol] 0.08 mg/dL 0.00-0.30 [facility] Work Phone: [phone] Hematocrit Auto (Bld) [Volum e fraction]on 04-12-2021 Hematocrit (Bld) [Volume fraction] 38.2 % 40-54 [facility] Work Phone: [phone] Laboratory - Chemistry and C hemistry - challengeon 04-12-2021 ALP [Catalytic activity/Vol] 101 U/L 45-117 [facility] Work Phone: [phone] ALT [Catalytic activity/Vol] 30 U/L 16-61 [facility] Work Phone: [phone] Globulin (S) [Mass/Vol] 2.9 g/dL 2.2-4.2 [facility] Work Phone: [phone] Laboratory - Hematology and Cell countson 04-12-2021 Basophils/100 WBC (Unsp spec) 0.6 % 0-1 [facility] Work Phone: [phone] Erythrocyte distribution width (RBC) [Entitic vol] 46.7 fL 35.1-43.9 [facility] Work Phone: [phone] Erythrocyte distribution width (RBC) [Ratio] 13.7 % 11.6-14.6 [facility] Work Phone: [phone] Immature granulocytes/100 WBC (Bld) 0.400 % 0.0-0.9 [facility] Work Phone: [phone] Comment on above: IG% - Immature Granu locytes (promyelocytes, myelocytes and metamyelocytes) > 1% indicates that a LEFT SHIFT is Present. MCH (RBC) [Entitic mass] 30.3 pg 27.0-32.0 [facility] Work Phone: [phone] Neutrophils/100 WBC (Bld) 63.0 % 47-70 [facility] Work Phone: [phone] Nucleated RBC/100 WBC (Bld) [Ratio] 0 % 0-5 [facility] Work Phone: MCHC Auto (RBC) [Mass/Vol]on 04-12-2021 MCHC (RBC) [Mass/Vol] 32.5 g/dL 32-36 [facility] Work Phone: Platelets bldon 04-12-2021 Platelets (Bld) [#/Vol] 173 10*3/uL 150-450 [facility] Work Phone: Serum or plasma albumin gordy urement (mass/volume)on 04-12-2021 Albumin [Mass/Vol] 2.8 g/dL 3.2-5.0 [facility] Work Phone: Thin prep Papanicolaou smear with manual screeningon 04-12-2021 Thin prep Papanicolaou smear with manual screening 15 U/L 15- [facility] Work Phone: Absolute lymphocyte counton 04-07-2021 Lymphocytes Auto (Unsp spec) [#/Vol] 1.55 10*3/uL 0.83-4.51 [facility] Work Phone: Basophil percentageon 2020 Eosinophils/100 WBC (Bld) 0.7 % 0-5 [facility] Work Phone: Neutrophils (Bld) [#/Vol] 5.3 10*3/uL 2.0-7.7 [facility] Work Phone: WBC (Bld) [#/Vol] 8.1 10*3/uL 4.4-11.0 [facility] Work Phone: Blood erythrocytes count (nu mber/volume)on 04-07-2021 RBC (Bld) [#/Vol] 4.18 10*6/uL 4.6-6.2 [facility] Work Phone: Blood hemoglobin measurement (mass/volume)on 04-07-2021 Hemoglobin (Bld) [Mass/Vol] 12.9 g/dL 13.0-16.5 [facility] Work Phone: [phone] Blood lymphocytes/100 leukoc yteson 04-07-2021 Lymphocytes/100 WBC (Bld) 19.2 % 19-41 [facility] Work Phone: Blood monocytes/100 leukocyt eson 04-07-2021 Monocytes/100 WBC (Bld) 13.0 % 0-10 [facility] Work Phone: Blood platelet mean volumeon 04-07-2021 Platelet mean volume (Bld) [Entitic vol] 10.9 fL 6.2-12.0 [facility] Work Phone: Determination of erythrocyte mean corpuscular volume (MCV)on 04-07-2021 MCV (RBC) [Entitic vol] 92.6 fL 80-94 [facility] Work Phone: Hematocrit Auto (Bld) [Volum e fraction]on 04-07-2021 Hematocrit (Bld) [Volume fraction] 38.7 % 40-54 [facility] Work Phone: Laboratory - Hematology and Cell countson 04-07-2021 Basophils/100 WBC (Unsp spec) 0.6 % 0-1 [facility] Work Phone: Erythrocyte distribution width (RBC) [Entitic vol] 45.8 fL 35.1-43.9 [facility] Work Phone: Erythrocyte distribution width (RBC) [Ratio] 13.5 % 11.6-14.6 [facility] Work Phone: Immature granulocytes/100 WBC (Bld) 0.500 % 0.0-0.9 [facility] Work Phone: [phone] Comment on above: IG% - Immature Granu locytes (promyelocytes, myelocytes and metamyelocytes) > 1% indicates that a LEFT SHIFT is Present. MCH (RBC) [Entitic mass] 30.9 pg 27.0-32.0 [facility] Work Phone: Neutrophils/100 WBC (Bld) 66.0 % 47-70 [facility] Work Phone: Nucleated RBC/100 WBC (Bld) [Ratio] 0 % 0-5 [facility] Work Phone: MCHC Auto (RBC) [Mass/Vol]on 04-07-2021 MCHC (RBC) [Mass/Vol] 33.3 g/dL 32-36 [facility] Work Phone: Platelets bldon 04-07-2021 Platelets (Bld) [#/Vol] 210 10*3/uL 150-450 [facility] Work Phone: CULTURE BLOODon 03-25-2021 Microscopic examination of blood, culture CULTURE BLOOD --> Status: F No growth at 5 days. Normal [facility] Comment on above: Performed By: #### C /BLD ####[facility] [place], [place] CULTURE BLOOD (Two)on 2020 Microscopic examination of blood, culture CULTURE BLOOD (Two) --> Status: F No growth at 5 days. Normal [facility] Comment on above: Performed By: #### C /BLT ####[facility] [id number] [place], [place] Basic Metabolic Panelon 2 Calcium [Mass/Vol] 8.8 mg/dL Normal 8.4-10.4 [facility] Comment on above: Performed By: #### H EMDF, BMP3 #### [facility] [address] [place] [address] Glucose [Mass/Vol] 103 mg/dL High 70-100 [facility] Comment on above: Performed By: #### H EMDF, BMP3 #### [facility] [address] [place] [address] Anion gap [Moles/Vol] 5 mmol/L Normal 3-13 [facility] Comment on above: Performed By: #### H EMDF, BMP3 #### [facility] [address] [place] [address] CO2 [Moles/Vol] 26 mmol/L Normal 22-30 [facility] Comment on above: Performed By: #### H EMDF, BMP3 #### [facility] [address] [place] [address] Creatinine [Mass/Vol] 0.49 mg/dL Low 0.52-1.25 [facility] Comment on above: Performed By: #### H KOIRN BRAR3 #### [facility] [address] [place] [address] eGFR OTHER > 90.0 Normal >60 [facility] Comment on above: Result Comment: KDIG O [...] secretion. Performed By: #### KORIN BLANCAS3 #### [facility] [address] [place] [address] GFR/1.73 sq M.predicted among blacks MDRD (S/P/Bld) [Vol rate/Area] mL/min/{1.73_m2} Normal >60 [facility] Comment on above: Performed By: #### KORIN BLANCAS3 #### [facility] [address] [place] [address] Urea nitrogen [Mass/Vol] 30 mg/dL High 7-17 [facility] Comment on above: Performed By: #### KORIN BLANCAS3 #### [facility] [address] [place] [address] Chloride [Moles/Vol] 112 mmol/L High 98-107 [facility] Comment on above: Performed By: #### KORIN BLANCAS3 #### [facility] [address] [place] [address] Potassium [Moles/Vol] 4.1 mmol/L Normal 3.5-5.1 [facility] Comment on above: Performed By: #### H KORIN BRAR3 #### [facility] [address] [place] [address] Sodium [Moles/Vol] 142 mmol/L Normal 135-145 [facility] Comment on above: Performed By: #### H MAYKEL, BMP3 #### [facility] [address] [place] [address] Anion gap [Moles/Vol] 5 mmol/L 3 - 13 mmol/L [facility] Work Phone: Calcium [Mass/Vol] 8.8 mg/dL 8.4 - 10. 4 mg/dL [facility] Work Phone: Chloride [Moles/Vol] 112 mmol/L High 98 - 10 7 mmol/L [facility] Work Phone: CO2 [Moles/Vol] 26 mmol/L 22 - 30 mmol/L [facility] Work Phone: Creatinine [Mass/Vol] 0.49 mg/dL Low 0.52 - 1.25 mg/dL [facility] Work Phone: EGFR IF NonAfrican Japanese >90.0 >60 mL/min [facility] Work Phone: Comment on above: KDIGO [...] MDRD (S/P/Bld) [Vol rate/Area] mL/min/{1.73_m2} >60 mL/min [facility] Work Phone: Glucose [Mass/Vol] 103 mg/dL High 70 - 100 mg/dL [employer] Work Phone: Interpretation and review of laboratory results Abnormal [facility] Work Phone: Potassium [Moles/Vol] 4.1 mmol/L 3.5 - 5.1 mmol/L [facility] Work Phone: Sodium [Moles/Vol] 142 mmol/L 135 - 145 mmol/L [facility] Work Phone: Urea nitrogen (BldV) [Mass/Vol] 30 mg/dL High 7 - 17 mg/dL [facility] Work Phone: Test Performed by [facility], [address] [place] [id number] [place] [address] LAB [facility] Work Phone: CBC Auto Differentialon 11-2 Hematocrit (Bld) [Volume fraction] 35.0 % Low 40.0 - 52.0 % [facility] Work Phone: Hemoglobin.gastrointest inal spec 1 Ql (Stl) 11.7 g/dL Low 13.0 - 18.0 g/dL [facility] Work Phone: Interpretation and review of laboratory results Abnormal [facility] Work Phone: MCH (RBC) [Entitic mass] 31.0 pg 26.0 - 34.0 pg [facility] Work Phone: MCHC (RBC) [Mass/Vol] 33.4 % 32.0 - 36.0 % [facility] Work Phone: MCV (RBC) [Entitic vol] 92.7 fL 80.0 - 98.0 fL [employer] Work Phone: Platelet distribution width (Bld) [Ratio] 13.4 % 11.5 - 14.5 % [facility] Work Phone: Platelet mean volume (Bld) [Entitic vol] 8.6 fL 7.4 - 10.4 fL [facility] Work Phone: Platelets (Bld) [#/Vol] 236 10*3/uL 140 - 440 10*3/uL [employer] Work Phone: RBC (Bld) [#/Vol] 3.77 10*6/uL Low 4.40 - 5.9 0 10*6/uL [facility] Work Phone: WBC (Bld) [#/Vol] 12.8 10*3/uL High 3.6 - 10.7 10*3/uL [facility] Work Phone: Test [facility] by [facility], [address] [place], [place] [address] [facility] LAB [facility] Work Phone: Glucose,Bedsideon 03-24-2021 Glucose [Mass/Vol] 93 mg/dL Normal 70-100 [facility] Comment on above: Result Comment: Test performed by glucose meter. Results may be 10%-15% lower than serum/plasma values. (CLIA ID [id number]) Performed By: #### H KORIN BRAR3 #### [employer] [address] [place] [address] Glucose [Mass/Vol] 166 mg/dL High 70-100 [facility] Comment on above: Result Comment: Test performed by glucose meter. Results may be 10%-15% lower than serum/plasma values. (CLIA ID [id number]) Performed By: #### B GLU ####[facility] [place] [address] Hemogram w/ Autodiffon 03-24 Erythrocyte distribution width (RBC) [Ratio] 13.4 % Normal 11.5-14.5 [facility] Comment on above: Performed By: #### H ALCIRAF, BMP3 #### [facility] [address] [place] [address] Hematocrit (Bld) [Volume fraction] 35.0 % Low 40.0-52.0 [facility] Comment on above: Performed By: #### H EMDF, BMP3 #### [facility] [address] [place] [address] Hemoglobin (Bld) [Mass/Vol] 11.7 g/dL Low 13.0-18.0 [facility] Comment on above: Performed By: #### H EMDF, BMP3 #### [facility] [address] [place] [address] MCH (RBC) [Entitic mass] 31.0 pg Normal 26.0-34.0 [facility] Comment on above: Performed By: #### H EMDF, BMP3 #### [facility] [address] [place] [address] MCHC 33.4 % Normal 32.0-36.0 [facility] Comment on above: Performed By: #### H EMDF, BMP3 #### [facility] [address] [place] [address] MCV (RBC) [Entitic vol] 92.7 fL Normal 80.0-98.0 [facility] Comment on above: Performed By: #### H EMDF, BMP3 #### [facility] [address] [place] [address] Platelet mean volume (Bld) [Entitic vol] 8.6 fL Normal 7.4-10.4 [facility] Comment on above: Performed By: #### H EMDF, BMP3 #### [facility] [address] [place] [address] Platelets (Bld) [#/Vol] 236 10*3/uL Normal 140-440 [facility] Comment on above: Performed By: #### H EMDF, BMP3 #### [facility] [address] [place] [address] RBC (Bld) [#/Vol] 3.77 10*6/uL Low 4.40-5.90 [facility] Comment on above: Performed By: #### H EMDF, BMP3 #### [facility] [address] [place] [address] WBC (Bld) [#/Vol] 12.8 10*3/uL High 3.6-10.7 [facility] Comment on above: Performed By: #### H EMDF, BMP3 #### [facility] [address] [place] [address] Manual Diffon 03-24-2021 Abs Lymph Cnt 1.7 10*3/uL Normal 1.1-4.5 [facility] Comment on above: Performed By: #### H EMDF, BMP3 #### [facility] [address] [place] [address] Abs Monocyte Cnt 0.8 10*3/uL Normal 0.2-1.1 [facility] Comment on above: Performed By: #### H EMDF, BMP3 #### [facility] [address] [place] [address] Abs Neutrophile Cnt 10.1 10*3/uL High 2.2-8.2 [facility] Comment on above: Performed By: #### H EMDF, BMP3 #### [facility] [address] [place] [address] Anisocytosis Slight Normal [facility] Comment on above: Performed By: #### H EMDF, BMP3 #### [facility] [address] [place] [address] Atypical Lymphocytes 2 % Abnormal <1 [facility] Comment on above: Performed By: #### H EMDF, BMP3 #### [facility] [address] [place] [address] Abdoul Cells Slight Normal [facility] Comment on above: Performed By: #### H EMDF, BMP3 #### [facility] [address] [place] [address] Lymphocytes 11 % Low 20-40 [facility] Comment on above: Performed By: #### H EMDF, BMP3 #### [facility] [address] [place] [address] Monocytes 6 % Normal 2-10 [facility] Comment on above: Performed By: #### H EMDF, BMP3 #### [facility] [address] [place] [address] Myelocytes 2 % Abnormal <1 [facility] Comment on above: Performed By: #### H EMDF, BMP3 #### [facility] [address] [place] [address] [facility] Comment on above: Performed By: #### H EMDF, BMP3 #### [facility] [address] [place] [address] Poikilocytosis Slight Normal [facility] Comment on above: Performed By: #### H EMDF, BMP3 #### [facility] [address] [place] [address] Polychromasia Slight Normal [facility] Comment on above: Performed By: #### H EMDF, BMP3 #### [facility] [address] [place] [address] RBC Morphology ABNORMAL Normal [facility] Comment on above: Performed By: #### H EMDF, BMP3 #### [facility] [address] [place] [address] Seg Neutrophils 79 % Normal 40-80 [facility] Comment on above: Performed By: #### H EMDF, BMP3 #### [facility] [address] [place] [address] Tear Drop Forms Slight Normal [facility] Comment on above: Performed By: #### H EMDF, BMP3 #### [facility] [address] [place] [address] Abs Baso Cnt 0.0 10*3/uL Normal 0.0-0.2 [facility] Comment on above: Performed By: #### H EMDF, BMP3 #### [facility] [address] [place] [address] Abs Eosin Cnt 0.0 10*3/uL Normal 0.0-0.5 [facility] Comment on above: Performed By: #### H EMDF, BMP3 #### [facility] [address] [place] [address] Bands 0 % Normal 0-3 [facility] Comment on above: Performed By: #### H EMDF, BMP3 #### [facility] [address] [place] [address] Basophils 0 % Normal 0-2 [facility] Comment on above: Performed By: #### H EMDF, BMP3 #### [facility] [address] [place] [address] Cells counted 100 Normal [facility] Comment on above: Performed By: #### H EMDF, BMP3 #### [facility] [address] [place] [address] Eosinophils 0 % Low 1-6 [facility] Comment on above: Performed By: #### H EMDF, BMP3 #### [facility] [address] [place] [address] Manual Differentialon 2020 Absolute Baso # 0.0 10*3/uL 0.0 - 0.2 10*3/uL [facility] Work Phone: Absolute Eos # 0.0 10*3/uL 0.0 - 0.5 10*3/uL [facility] Work Phone: [phone] Absolute Lymph # 1.7 10*3/uL 1.1 - 4.5 10*3/uL [facility] Work Phone: [phone] Absolute [place] # 0.8 10*3/uL 0.2 - 1.1 10*3/uL [facility] Work Phone: Absolute Neut # 10.1 10*3/uL High 2.2 - 8.2 10*3/uL [facility] Work Phone: [phone] Anisocytosis Slight [facility] Work Phone: [phone] Atypical Lymphocytes 2 % Abnormal <1 [facility] Work Phone: [phone] Bands 0 % 0 - 3 % [facility] Work Phone: [phone] Basophils/100 WBC (Bld) 0 % 0 - 2 % S [facility] Work Phone: [place] Cells Slight [facility] Work Phone: Eosinophils/100 WBC (Bld) 0 % Low 1 - 6 % [facility] Work Phone: Interpretation and review of laboratory results Abnormal [facility] Work Phone: [phone] Lymphocytes/100 WBC (Bld) 11 % Low 20 - 40 % [facility] Work Phone: Monocytes/100 WBC (Bld) 6 % 2 - 10 % [facility] Work Phone: Myelocytes 2 % Abnormal <1 [facility] Work Phone: Ovalocytes Slight [facility] Work Phone: Poikilocytes Slight [facility] Work Phone: Polychromasia Slight [facility] Work Phone: RBC (Bld) [#/Vol] ABNORMAL [facility] Work Phone: Seg Neutrophils 79 % 40 - 80 % [facility] Work Phone: Tear Drop Cells Slight [facility] Work Phone: TOTAL CELLS COUNTED 100 [facility] Work Phone: Test Performed by [facility], [address] [place], [place] [address] [facility] LAB [facility] Work Phone: POCT Glucoseon 03-24-2021 Glucose [Mass/Vol] 93 mg/dL 70 - 100 mg/dL [facility] Work Phone: Comment on above: Test performed by gl ucose meter. Results may be 10%-15% lower than serum/plasma values. (CLIA ID [id number]) Test Performed by [facility], [address] [place], [place] [address] [facility] Work Phone: Basic Metabolic Panelon 11-2 Calcium [Mass/Vol] 8.8 mg/dL Normal 8.4-10.4 [facility] Comment on above: Performed By: #### H EMDF BMP3 #### [facility] [address] [place] [address] Glucose [Mass/Vol] 143 mg/dL High 70-100 [facility] Comment on above: Performed By: #### H EMDF, BMP3 #### [facility] [address] [place] [address] Anion gap [Moles/Vol] 8 mmol/L Normal 3-13 [facility] Comment on above: Performed By: #### H MAYKEL BMP3 #### [facility] [address] [place] [address] CO2 [Moles/Vol] 24 mmol/L Normal 22-30 [facility] Comment on above: Performed By: #### H MAYKEL BMP3 #### [facility] [address] [place] [address] Creatinine [Mass/Vol] 0.47 mg/dL Low 0.52-1.25 [facility] Comment on above: Performed By: #### H EMDF BMP3 #### [facility] [address] [place] [address] eGFR OTHER > 90.0 Normal >60 [facility] Comment on above: Result Comment: KDIG O [...] Performed By: #### H MAYKEL BMP3 #### [facility] [address] [place] [address] GFR/1.73 sq M.predicted among blacks MDRD (S/P/Bld) [Vol rate/Area] mL/min/{1.73_m2} Normal >60 [facility] Comment on above: Performed By: #### H MAYKEL BMP3 #### [facility] [address] [place] [address] Urea nitrogen [Mass/Vol] 32 mg/dL High 7-17 [facility] Comment on above: Performed By: #### H EMDF, BMP3 #### [facility] [address] [place] [address] Chloride [Moles/Vol] 110 mmol/L High 98-107 [facility] Comment on above: Performed By: #### H EMDF, BMP3 #### [facility] [address] [place] [address] Potassium [Moles/Vol] 3.9 mmol/L Normal 3.5-5.1 [facility] Comment on above: Performed By: #### H EMDF, BMP3 #### [facility] [address] [place] [address] Sodium [Moles/Vol] 142 mmol/L Normal 135-145 [facility] Comment on above: Performed By: #### H EMDF, BMP3 #### [facility] [address] [place] [address] Anion gap [Moles/Vol] 8 mmol/L 3 - 13 mmol/L [facility] Work Phone: Calcium [Mass/Vol] 8.8 mg/dL 8.4 - 10. 4 mg/dL [facility] Work Phone: Chloride [Moles/Vol] 110 mmol/L High 98 - 10 7 mmol/L [facility] Work Phone: CO2 [Moles/Vol] 24 mmol/L 22 - 30 mmol/L [facility] Work Phone: Creatinine [Mass/Vol] 0.47 mg/dL Low 0.52 - 1.25 mg/dL [facility] Work Phone: EGFR IF NonAfrican Japanese >90.0 >60 mL/min [facility] Work Phone: Comment on above: KDIGO guidelines [...] MDRD (S/P/Bld) [Vol rate/Area] mL/min/{1.73_m2} >60 mL/min [employer] Work Phone: Glucose [Mass/Vol] 143 mg/dL High 70 - 100 mg/dL [employer] [facility] Work Phone: Interpretation and review of laboratory results Abnormal [facility] Work Phone: Potassium [Moles/Vol] 3.9 mmol/L 3.5 - 5.1 mmol/L [facility] Work Phone: Sodium [Moles/Vol] 142 mmol/L 135 - 145 mmol/L [facility] Work Phone: Urea nitrogen (BldV) [Mass/Vol] 32 mg/dL High 7 - 17 mg/dL [facility] Work Phone: Test Performed by [facility], [address] [place] [id number] [place] [address] LAB [facility] Work Phone: CBC Auto Differentialon 11-2 Absolute Baso # 0.0 10*3/uL 0.0 - 0.2 10*3/uL [facility] Work Phone: Absolute Neut # 13.5 10*3/uL High 1.8 - 7.0 10*3/uL [employer] Work Phone: Basophils/100 WBC (Bld) 0.3 % 0.0 - 2.0 % [facility] Work Phone: Eosinophils (Bld) [#/Vol] 0.0 10*3/uL 0.0 - 0.5 10*3/uL [employer] Work Phone: Eosinophils/100 WBC (Bld) 0.0 % Low 1.0 - 6.0 % [employer] Work Phone: Granulocytes/100 WBC (Bld) 89.5 % High 40.0 - 80.0 % [employer] Work Phone: Hematocrit (Bld) [Volume fraction] 36.5 % Low 40.0 - 52.0 % [employer] Work Phone: Hemoglobin.gastrointest inal spec 1 Ql (Stl) 12.4 g/dL Low 13.0 - 18.0 g/dL [employer] Work Phone: Interpretation and review of laboratory results Abnormal [employer] Work Phone: Lymphocytes (Bld) [#/Vol] 0.7 10*3/uL Low 1.0 - 4.3 10*3/uL [employer] [facility] Work Phone: Lymphocytes/100 WBC (Bld) 4.8 % Low 20.0 - 40.0 % [employer] Work Phone: MCH (RBC) [Entitic mass] 31.3 pg 26.0 - 34.0 pg [employer] Work Phone: MCHC (RBC) [Mass/Vol] 34.1 % 32.0 - 36.0 % [employer] Work Phone: MCV (RBC) [Entitic vol] 92.0 fL 80.0 - 98.0 fL [employer] Work Phone: Monocytes (Bld) [#/Vol] 0.8 10*3/uL 0.0 - 0.8 10*3/uL [employer] Work Phone: Monocytes/100 WBC (Bld) 5.4 % 2.0 - 10.0 % [employer] Work Phone: Platelet distribution width (Bld) [Ratio] 13.2 % 11.5 - 14.5 % [employer] Work Phone: Platelet mean volume (Bld) [Entitic vol] 9.0 fL 7.4 - 10.4 fL [employer] Work Phone: Platelets (Bld) [#/Vol] 211 10*3/uL 140 - 440 10*3/uL [employer] Work Phone: RBC (Bld) [#/Vol] 3.96 10*6/uL Low 4.40 - 5.9 0 10*6/uL [employer] Work Phone: WBC (Bld) [#/Vol] 15.1 10*3/uL High 3.6 - 10.7 10*3/uL [employer] Work Phone: Test Performed by [facility], [address] [place], [place] [address] [facility] Work Phone: Glucose,Bedsideon 03-23-2021 Glucose [Mass/Vol] 122 mg/dL High 70-100 [facility] Comment on above: Result Comment: Test performed by glucose meter. Results may be 10%-15% lower than serum/plasma values. (CLIA ID [id number]) Performed By: #### H EMDF, BMP3 #### [facility] [address] [place] [address] Glucose [Mass/Vol] 129 mg/dL High 70-100 [facility] Comment on above: Test performed by gl ucose meter. Results may be 10%-15% lower than serum/plasma values. (CLIA ID [id number]) Result Comment: Test performed by glucose meter. Results may be 10%-15% lower than serum/plasma values. (CLIA ID [id number]) Performed By: #### B GLU ####[facility] [address] [place] [address] Glucose [Mass/Vol] 136 mg/dL High 70-100 [facility] Comment on above: Result Comment: Test performed by glucose meter. Results may be 10%-15% lower than serum/plasma values. (CLIA ID [id number]) Performed By: #### B GLU #### [facility] [address] [place] [address] Hemogram w/ Autodiffon 03-23 Abs Baso Cnt 0.0 10*3/uL Normal 0.0-0.2 [facility] Comment on above: Performed By: #### H EMDF, BMP3 #### [facility] [address] [place] [address] Abs Neutrophile Cnt 13.5 10*3/uL High 1.8-7.0 [facility] Comment on above: Performed By: #### H EMDF, BMP3 #### [facility] [address] [place] [address] Basophils/100 WBC (Bld) 0.3 % Normal 0.0-2.0 S [facility] Comment on above: Performed By: #### H EMDF, BMP3 #### [facility] [address] [place] [address] Eosinophils (Bld) [#/Vol] 0.0 10*3/uL Normal 0.0-0.5 [facility] Comment on above: Performed By: #### H EMDF, BMP3 #### [facility] [address] [place] [address] Eosinophils/100 WBC (Bld) 0.0 % Low 1.0-6.0 [facility] Comment on above: Performed By: #### H EMDF, BMP3 #### [facility] [address] [place] [address] Erythrocyte distribution width (RBC) [Ratio] 13.2 % Normal 11.5-14.5 [facility] Comment on above: Performed By: #### H EMDF, BMP3 #### [facility] [address] [place] [address] Granulocytes/100 WBC (Bld) 89.5 % High 40.0-80.0 [facility] Comment on above: Performed By: #### H EMDF, BMP3 #### [facility] [address] [place] [address] Hematocrit (Bld) [Volume fraction] 36.5 % Low 40.0-52.0 [facility] [facility] Comment on above: Performed By: #### H EMDF, BMP3 #### [facility] [address] [place] [address] Hemoglobin (Bld) [Mass/Vol] 12.4 g/dL Low 13.0-18.0 [facility] Comment on above: Performed By: #### H EMDF, BMP3 #### [facility] [address] [place] [address] Lymphocytes (Bld) [#/Vol] 0.7 10*3/uL Low 1.0-4.3 [facility] Comment on above: Performed By: #### H EMDF, BMP3 #### [facility] [address] [place] [address] Lymphocytes/100 WBC (Bld) 4.8 % Low 20.0-40.0 [facility] Comment on above: Performed By: #### H EMDF, BMP3 #### [facility] [address] [place] [address] MCH (RBC) [Entitic mass] 31.3 pg Normal 26.0-34.0 [facility] Comment on above: Performed By: #### H EMDF, BMP3 #### [facility] [address] [place] [address] MCHC 34.1 % Normal 32.0-36.0 [facility] Comment on above: Performed By: #### H EMDF, BMP3 #### [facility] [address] [place] [address] MCV (RBC) [Entitic vol] 92.0 fL Normal 80.0-98.0 [facility] Comment on above: Performed By: #### H EMDF, BMP3 #### [facility] [address] [place] [address] Monocytes (Bld) [#/Vol] 0.8 10*3/uL Normal 0.0-0.8 [facility] Comment on above: Performed By: #### H EMDF, BMP3 #### [facility] [address] [place] [address] Monocytes/100 WBC (Bld) 5.4 % Normal 2.0-10.0 [facility] Comment on above: Performed By: #### H EMDF, BMP3 #### [facility] [address] [place] [address] Platelet mean volume (Bld) [Entitic vol] 9.0 fL Normal 7.4-10.4 [facility] Comment on above: Performed By: #### H EMDF, BMP3 #### [facility] [address] [place] [address] Platelets (Bld) [#/Vol] 211 10*3/uL Normal 140-440 [facility] Comment on above: Performed By: #### H EMDF, BMP3 #### [facility] [address] [place] [address] RBC (Bld) [#/Vol] 3.96 10*6/uL Low 4.40-5.90 [facility] Comment on above: Performed By: #### H EMDF, BMP3 #### [facility] [address] [place] [address] WBC (Bld) [#/Vol] 15.1 10*3/uL High 3.6-10.7 [facility] Comment on above: Performed By: #### H EMDF, BMP3 #### [facility] [address] [place] [address] No Panel Informationon 03-23 Interpretation and review of laboratory results Abnormal [facility] Work Phone: Test Performed by [facility], [facility] [address] LAB [facility] Work Phone: POCT Glucoseon 03-23-2021 Glucose [Mass/Vol] 166 mg/dL High 70 - 100 mg/dL [facility] Comment on above: Test performed by gl ucose meter. Results may be 10%-15% lower than serum/plasma values. (CLIA ID [id number]) Interpretation and review of laboratory results Abnormal [facility] Test Performed by [facility], [facility] [address] LAB [facility] Glucose [Mass/Vol] 122 mg/dL High 70 - 100 mg/dL [facility] Work Phone: Comment on above: Test performed by gl ucose meter. Results may be 10%-15% lower than serum/plasma values. (CLIA ID [id number]) Glucose [Mass/Vol] 136 mg/dL High 70 - 100 mg/dL [facility] Comment on above: Test performed by gl ucose meter. Results may be 10%-15% lower than serum/plasma values. (CLIA ID [id number]) Interpretation and review of laboratory results Abnormal [facility] Test Performed by [facility], [address] [place], [place], [place] [address] [facility] LAB [facility] CBC Auto Differentialon 03-02 Absolute Baso [...] 13.3 10*3/uL High 3.6 - 10.7 10*3/uL [facility] Test Performed by [facility], [address] [place], [place] [address] [facility] LAB [facility] Glucose,Bedsideon 03-22-2021 Glucose [Mass/Vol] 134 mg/dL High 70-100 [facility] Comment on above: Result Comment: Test performed by glucose meter. Results may be 10%-15% lower than serum/plasma values. (CLIA ID [id number]) Performed By: #### H EMDF, BMP3 #### [facility] [address] [place] [address] Glucose [Mass/Vol] 190 mg/dL High 70-100 [facility] Comment on above: Result Comment: Test performed by glucose meter. Results may be 10%-15% lower than serum/plasma values. (CLIA ID [id number]) Performed By: #### B GLU #### [facility] [address] [place] [address] Glucose [Mass/Vol] 200 mg/dL High 70-100 [facility] Comment on above: Result Comment: Test performed by glucose meter. Results may be 10%-15% lower than serum/plasma values. (CLIA ID [id number]) Performed By: #### B GLU #### [facility] [address] [place] [address] Glucose [Mass/Vol] 181 mg/dL High 70-100 [facility] Comment on above: Result Comment: Test performed by glucose meter. Results may be 10%-15% lower than serum/plasma values. (CLIA ID [id number]) Performed By: #### B GLU #### [facility] [address] [place] [address] Glucose [Mass/Vol] 186 mg/dL High 70-100 [facility] Comment on above: Result Comment: Test performed by glucose meter. Results may be 10%-15% lower than serum/plasma values. (CLIA ID [id number]) Performed By: #### B GLU #### [facility] [address] [place] [address] Hemoglobin A1Con 03-22-2021 Glucose [Mass/Vol] 108 mg/dL Normal [facility] Comment on above: Performed By: #### B GLU #### [facility] [address] [place] [address] HbA1c (Bld) [Mass fraction] 5.4 % Normal [facility] Comment on above: Result Comment: Norm al less than 5.7% Prediabetes 5.7% to 6.4% Diabetes 6.5% or higher --HgbA1C levels may not be accurate in patients who have renal disease, received recent blood transfusions, are anemic, or who have dyshemoglobinemia. Performed By: #### B GLU #### [facility] [address] [place] [address] HbA1c (Bld) [Mass fraction] 5.4 % [facility] Comment on above: Normal less than 5.7 % Prediabetes 5.7% to 6.4% Diabetes 6.5% or higher --HgbA1C levels may not be accurate in patients who have renal disease, received recent blood transfusions, are anemic, or who have dyshemoglobinemia. Magnesium [Mass/Vol] 108 mg/dL [facility] Test Performed by [facility], [address] [place], [place] [address] [facility] LAB [facility] Hemogram w/ Autodiffon 03-22 Abs Baso Cnt 0.0 10*3/uL Normal 0.0-0.2 [facility] Comment on above: Performed By: #### B GLU #### [facility] [address] [place] [address] Abs Neutrophile Cnt 12.3 10*3/uL High 1.8-7.0 [facility] Comment on above: Performed By: #### B GLU #### [facility] [address] [place] [address] Basophils/100 WBC (Bld) 0.2 % Normal 0.0-2.0 [facility] Comment on above: Performed By: #### B GLU #### [facility] [address] [place] [address] Eosinophils (Bld) [#/Vol] 0.0 10*3/uL Normal 0.0-0.5 [facility] Comment on above: Performed By: #### B GLU #### [facility] [address] [place] [address] Eosinophils/100 WBC (Bld) 0.0 % Low 1.0-6.0 [facility] Comment on above: Performed By: #### B GLU #### [facility] [address] [place] [address] Erythrocyte distribution width (RBC) [Ratio] 12.8 % Normal 11.5-14.5 [facility] Comment on above: Performed By: #### B GLU #### [facility] [address] [place] [address] Granulocytes/100 WBC (Bld) 92.7 % High 40.0-80.0 [facility] Comment on above: Performed By: #### B GLU #### [facility] [address] [place] [address] Hematocrit (Bld) [Volume fraction] 35.9 % Low 40.0-52.0 [facility] Comment on above: Performed By: #### B GLU #### [facility] [address] [place] [address] Hemoglobin (Bld) [Mass/Vol] 12.4 g/dL Low 13.0-18.0 [facility] Comment on above: Performed By: #### B GLU #### [facility] [address] [place] [address] Lymphocytes (Bld) [#/Vol] 0.5 10*3/uL Low 1.0-4.3 [facility] Comment on above: Performed By: #### B GLU #### [facility] [address] [place] [address] Lymphocytes/100 WBC (Bld) 3.6 % Low 20.0-40.0 [facility] Comment on above: Performed By: #### B GLU #### [facility] [address] [place] [address] MCH (RBC) [Entitic mass] 31.6 pg Normal 26.0-34.0 [facility] Comment on above: Performed By: #### B GLU #### [facility] [address] [place] [address] MCHC 34.6 % Normal 32.0-36.0 [facility] Comment on above: Performed By: #### B GLU #### [facility] [address] [place] [address] MCV (RBC) [Entitic vol] 91.2 fL Normal 80.0-98.0 [facility] Comment on above: Performed By: #### B GLU #### [facility] [address] [place] [address] Monocytes (Bld) [#/Vol] 0.5 10*3/uL Normal 0.0-0.8 [facility] Comment on above: Performed By: #### B GLU #### [facility] [address] [place] [address] Monocytes/100 WBC (Bld) 3.5 % Normal 2.0-10.0 [facility] Comment on above: Performed By: #### B GLU #### [facility] [address] [place] [address] Platelet mean volume (Bld) [Entitic vol] 9.5 fL Normal 7.4-10.4 [facility] Comment on above: Performed By: #### B GLU #### [facility] [address] [place] [address] Platelets (Bld) [#/Vol] 158 10*3/uL Normal 140-440 [facility] Comment on above: Performed By: #### B GLU #### [facility] [address] [place] [address] RBC (Bld) [#/Vol] 3.93 10*6/uL Low 4.40-5.90 [facility] Comment on above: Performed By: #### B GLU #### [facility] [address] [place] [address] WBC (Bld) [#/Vol] 13.3 10*3/uL High 3.6-10.7 [facility] Comment on above: Performed By: #### B GLU #### [facility] [address] [place] [address] MRSA by PCRon 03-22-2021 Staph Aureus Sc No S. aureus detected. Negative nasal MRSA PCR has a high negative predictive value for MRSA pneumonia. Consider stopping vancomycin if no other clinical indication. Contact Antimicrobial Stewardship for further recommendations. The analytical performance characteristics of this assay have been determined by [facility] in accordance with CLIA regulations. The modifications have not been cleared or approved by the U. S. Food and Drug Administration; however, the FDA has determined that such clearance or approval is not necessary. [facility] Test Performed by [facility], [address] [place] [id number] [place] [address] LAB [facility] POCT GlucoseOrdered By: Pascual Morgan on 03-22-2021 Glucose [Mass/Vol] 134 mg/dL High 70 - 100 mg/dL [facility] Work Phone: Comment on above: Test performed by gl ucose meter. Results may be 10%-15% lower than serum/plasma values. (CLIA ID [id number]) Interpretation and review of laboratory results Abnormal [facility] Work Phone: [facility] Work Phone: POCT Glucoseon 03-22-2021 Test Performed by [facility], [address] [place], [place] [address] [facility] LAB Glucose [Mass/Vol] 190 mg/dL High 70 - 100 mg/dL [facility] Comment on above: Test performed by gl ucose meter. Results may be 10%-15% lower than serum/plasma values. (CLIA ID [id number]) Interpretation and review of laboratory results Abnormal [facility] Test Performed by [facility], [address] LAB [facility] Glucose [Mass/Vol] 200 mg/dL High 70 - 100 mg/dL [facility] Comment on above: Test performed by gl ucose meter. Results may be 10%-15% lower than serum/plasma values. (CLIA ID [id number]) Interpretation and review of laboratory results Abnormal [facility] Test Performed by [facility], [address] LAB [facility] Glucose [Mass/Vol] 181 mg/dL High 70 - 100 mg/dL [facility] Comment on above: Test performed by gl ucose meter. Results may be 10%-15% lower than serum/plasma values. (CLIA ID [id number]) Interpretation and review of laboratory results Abnormal [facility] Test Performed by [facility], [address] LAB [facility] Glucose [Mass/Vol] 186 mg/dL High 70 - 100 mg/dL [facility] Comment on above: Test performed by gl ucose meter. Results may be 10%-15% lower than serum/plasma values. (CLIA ID [id number]) Interpretation and review of laboratory results Abnormal [facility] Test Performed by [facility], [address] LAB [facility] Procalcitoninon 03-22-2021 Procalcitonin 0.09 ng/mL Normal 0.00-0.09 [facility] Comment on above: Performed By: #### H [facility] #### [facility] [address] [place] [address] Interpretation See Below [facility] Comment on above: PCT <0.50 = Low risk of severe sepsis and/or septic shock. PCT >2.00 = High risk of severe sepsis and/or septic shock. Procalcitonin 0.09 ng/mL 0.00 - 0.09 ng/mL [facility] Test Performed by [facility], [address] [place] [address] [facility] LAB [facility] Staph Aureus Complete Nasalo n 03-22-2021 Staph Aureus Complete Nasal Staph Screen --> Status: F No S. aureus detected. Negative nasal MRSA PCR has a high negative predictive value for MRSA pneumonia. Consider stopping vancomycin if no other clinical indication. Contact Antimicrobial Stewardship for further recommendations. The analytical performance characteristics of this assay have been determined by [facility] in accordance with CLIA regulations. The modifications [...] of this assay have been determined by [facility] in accordance with CLIA regulations. The modifications have not been cleared or approved by the U. S. Food and Drug Administration; however, the FDA has determined that such clearance or approval is not necessary. Normal [facility] Comment on above: Performed By: #### S APCR ####[facility] [id number] [place] [address] Vancomycin Troughon 03-22-20 21 Vancomycin Trough 8.1 ug/mL Low 15.0-20.0 [facility] Comment on above: Result Comment: . Performed By: #### B GLU #### [facility] [address] [place] [address] Vancomycin, Troughon 021 Interpretation and review of laboratory results Abnormal [facility] Vancomycin Tr 8.1 ug/mL Low 15.0 - 20.0 ug/mL [facility] Comment on above: . Test Performed by [facility], [address] [place], [place] [address] [facility] LAB [facility] Basic Metabolic Panelon 03-02 Anion gap [Moles/Vol] 7 mmol/L Normal 3-13 [facility] Comment on above: Performed By: #### H MAYKEL BMP3 #### [facility] [address] [place] [address] Calcium [Mass/Vol] 8.1 mg/dL Low 8.4-10.4 [facility] Comment on above: Performed By: #### H MAYKEL, BMP3 #### [facility] [address] [place] [address] CO2 [Moles/Vol] 26 mmol/L Normal 22-30 [facility] Comment on above: Performed By: #### H MAYKEL BMP3 #### [facility] [address] [place] [address] Glucose [Mass/Vol] 156 mg/dL High 70-100 [facility] Comment on above: Performed By: #### H ALCIRAF BMP3 #### [facility] [address] [place] [address] Urea nitrogen [Mass/Vol] 19 mg/dL High 7-17 [facility] Comment on above: Performed By: #### H ALCIRAF BMP3 #### [facility] [address] [place] [address] Creatinine [Mass/Vol] 0.53 mg/dL Normal 0.52-1.25 [facility] Comment on above: Performed By: #### H ALCIRAF BMP3 #### [facility] [address] [place] [address] eGFR OTHER > 90.0 Normal >60 [facility] Comment on above: Result Comment: KDIG O [...] Performed By: #### H MAYKEL BMP3 #### [facility] [address] [place] [address] GFR/1.73 sq M.predicted among blacks MDRD (S/P/Bld) [Vol rate/Area] mL/min/{1.73_m2} Normal >60 [facility] Comment on above: Performed By: #### H EMDF, BMP3 #### [facility] [address] [place] [address] Chloride [Moles/Vol] 103 mmol/L Normal 98-107 [facility] Comment on above: Performed By: #### H EMDF, BMP3 #### [facility] [address] [place] [address] Potassium [Moles/Vol] 3.4 mmol/L Low 3.5-5.1 [facility] Comment on above: Performed By: #### H EMDF, BMP3 #### [facility] [address] [place] [address] Sodium [Moles/Vol] 136 mmol/L Normal 135-145 [facility] Comment on above: Performed By: #### H EMDF, BMP3 #### [facility] [address] [place] [address] Basic Metabolic Panel w/ Ref marciano to MGon 03-21-2021 Anion gap [Moles/Vol] 7 mmol/L 3 - 13 mmol/L [facility] Work Phone: Calcium [Mass/Vol] 8.1 mg/dL Low 8.4 - 10. 4 mg/dL [facility] Work Phone: Chloride [Moles/Vol] 103 mmol/L 98 - 10 7 mmol/L [facility] Work Phone: CO2 [Moles/Vol] 26 mmol/L 22 - 30 mmol/L [facility] Work Phone: Creatinine [Mass/Vol] 0.53 mg/dL 0.52 - 1.25 mg/dL [facility] Work Phone: EGFR IF NonAfrican Japanese >90.0 >60 mL/min [facility] Work Phone: Comment on above: KDIGO guidelines [...] MDRD (S/P/Bld) [Vol rate/Area] mL/min/{1.73_m2} >60 mL/min [facility] Work Phone: Glucose [Mass/Vol] 156 mg/dL High 70 - 100 mg/dL [facility] Work Phone: Interpretation and review of laboratory results Abnormal [facility] Work Phone: Potassium [Moles/Vol] 3.4 mmol/L Low 3.5 - 5.1 mmol/L [facility] Work Phone: Sodium [Moles/Vol] 136 mmol/L 135 - 145 mmol/L [facility] Work Phone: Urea nitrogen (BldV) [Mass/Vol] 19 mg/dL High 7 - 17 mg/dL [facility] Work Phone: Test Performed by [facility], [address] [place] [id number] [place] [address] LAB [facility] Work Phone: CBCon 03-21-2021 Hematocrit (Bld) [Volume fraction] 35.4 % Low 40.0 - 52.0 % [facility] Work Phone: Hemoglobin.gastrointest inal spec 1 Ql (Stl) 11.9 g/dL Low 13.0 - 18.0 g/dL [facility] Work Phone: Interpretation and review of laboratory results Abnormal [facility] Work Phone: MCH (RBC) [Entitic mass] 30.5 pg 26.0 - 34.0 pg [employer] [facility] Work Phone: MCHC (RBC) [Mass/Vol] 33.7 % 32.0 - 36.0 % [facility] Work Phone: MCV (RBC) [Entitic vol] 90.6 fL 80.0 - 98.0 fL [facility] Work Phone: Platelet distribution width (Bld) [Ratio] 13.1 % 11.5 - 14.5 % [facility] Work Phone: Platelet mean volume (Bld) [Entitic vol] 9.1 fL 7.4 - 10.4 fL [employer] Work Phone: Platelets (Bld) [#/Vol] 136 10*3/uL Low 140 - 440 10*3/uL [employer] [facility] Work Phone: RBC (Bld) [#/Vol] 3.91 10*6/uL Low 4.40 - 5.9 0 10*6/uL [employer] [facility] Work Phone: WBC (Bld) [#/Vol] 7.1 10*3/uL 3.6 - 10.7 10*3/uL [facility] Work Phone: Test Performed by [facility], [address] [place], [place] [address] [place] [address] LAB [facility] Work Phone: Glucose,Bedsideon 03-21-2021 Glucose [Mass/Vol] 131 mg/dL High 70-100 [facility] Comment on above: Result Comment: Test performed by glucose meter. Results may be 10%-15% lower than serum/plasma values. (CLIA ID [id number]) Performed By: #### B GLU #### [facility] [address] [place] [address] Glucose [Mass/Vol] 230 mg/dL High 70-100 [facility] Comment on above: Result Comment: Test performed by glucose meter. Results may be 10%-15% lower than serum/plasma values. (CLIA ID [id number]) Performed By: #### B GLU #### [facility] [address] [place] [address] Hemogramon 03-21-2021 Erythrocyte distribution width (RBC) [Ratio] 13.1 % Normal 11.5-14.5 [facility] Comment on above: Performed By: #### H MAYKEL BMP3 #### [facility] [address] [place] [address] Hematocrit (Bld) [Volume fraction] 35.4 % Low 40.0-52.0 [facility] Comment on above: Performed By: #### H MAYKEL BMP3 #### [facility] [address] [place] [address] Hemoglobin (Bld) [Mass/Vol] 11.9 g/dL Low 13.0-18.0 [facility] Comment on above: Performed By: #### H MAYKEL BMP3 #### [facility] [address] [place] [address] MCH (RBC) [Entitic mass] 30.5 pg Normal 26.0-34.0 [facility] Comment on above: Performed By: #### H MAYKEL BMP3 #### [facility] [address] [place] [address] MCHC 33.7 % Normal 32.0-36.0 [facility] Comment on above: Performed By: #### H MAYKEL BMP3 #### [facility] [address] [place] [address] MCV (RBC) [Entitic vol] 90.6 fL Normal 80.0-98.0 [facility] Comment on above: Performed By: #### H MAYKEL BMP3 #### [facility] [address] [place] [address] Platelet mean volume (Bld) [Entitic vol] 9.1 fL Normal 7.4-10.4 [facility] Comment on above: Performed By: #### H MAYKEL BMP3 #### [facility] [address] [place] [address] Platelets (Bld) [#/Vol] 136 10*3/uL Low 140-440 [facility] Comment on above: Performed By: #### H MAYKEL BMP3 #### [facility] [address] [place] [address] RBC (Bld) [#/Vol] 3.91 10*6/uL Low 4.40-5.90 [facility] Comment on above: Performed By: #### H EMDF, BMP3 #### [facility] [address] [place] [address] WBC (Bld) [#/Vol] 7.1 10*3/uL Normal 3.6-10.7 [facility] Comment on above: Performed By: #### H EMDF, BMP3 #### [facility] [address] [place] [address] Magnesiumon 03-21-2021 Magnesium [Mass/Vol] 2.2 mg/dL Normal 1.6-2.3 [facility] Comment on above: Performed By: #### H EMDF, BMP3 #### [facility] [address] [place] [address] Magnesium [Mass/Vol] 2.2 mg/dL 1.6 - 2 .3 mg/dL [facility] Work Phone: Test Performed by [facility], [address] LAB [facility] Work Phone: POCT Glucoseon 03-21-2021 Glucose [Mass/Vol] 131 mg/dL High 70 - 100 mg/dL [facility] Comment on above: Test performed by gl ucose meter. Results may be 10%-15% lower than serum/plasma values. (CLIA ID [id number]) Interpretation and review of laboratory results Abnormal [facility] Test Performed by [facility], [address] LAB [facility] Glucose [Mass/Vol] 230 mg/dL High 70 - 100 mg/dL [facility] Comment on above: Test performed by gl ucose meter. Results may be 10%-15% lower than serum/plasma values. (CLIA ID [id number]) Interpretation and review of laboratory results Abnormal [facility] Test Performed by [facility], [address] LAB [facility] Procalcitoninon 03-21-2021 Interpretation See Below Normal [facility] Comment on above: Result Comment: PCT <0.50 = Low risk of severe sepsis and/or septic shock. PCT >2.00 = High risk of severe sepsis and/or septic shock. Performed By: #### Kerri BRAR BMP3 #### [facility] [address] [place] [address] Basic Metabolic Panelon 03-02 Calcium [Mass/Vol] 8.4 mg/dL Normal 8.4-10.4 [facility] Comment on above: Performed By: #### H MAYKEL BMP3 #### [facility] [address] [place] [address] Anion gap [Moles/Vol] 6 mmol/L Normal 3-13 [facility] Comment on above: Performed By: #### H MAYKEL BMP3 #### [facility] [address] [place] [address] CO2 [Moles/Vol] 27 mmol/L Normal 22-30 [facility] Comment on above: Performed By: #### H MAYKEL BMP3 #### [facility] [address] [place] [address] Glucose [Mass/Vol] 106 mg/dL High 70-100 [facility] Comment on above: Performed By: #### H MAYKEL BMP3 #### [facility] [address] [place] [address] Urea nitrogen [Mass/Vol] 14 mg/dL Normal 7-17 [facility] Comment on above: Performed By: #### H MAYKEL BMP3 #### [facility] [address] [place] [address] Creatinine [Mass/Vol] 0.51 mg/dL Low 0.52-1.25 [facility] Comment on above: Performed By: #### H MAYKEL BMP3 #### [facility] [address] [place] [address] eGFR OTHER > 90.0 Normal >60 [facility] Comment on above: Result Comment: KDIG O [...] Performed By: #### H MAYKEL BMP3 #### [facility] [address] [place] [address] GFR/1.73 sq M.predicted among blacks MDRD (S/P/Bld) [Vol rate/Area] mL/min/{1.73_m2} Normal >60 [facility] Comment on above: Performed By: #### Kerri BRAR BMP3 #### [facility] [address] [place] [address] Chloride [Moles/Vol] 104 mmol/L Normal 98-107 [facility] Comment on above: Performed By: #### Kerri BRAR BMP3 #### [facility] [address] [place] [address] Potassium [Moles/Vol] 3.9 mmol/L Normal 3.5-5.1 [facility] Comment on above: Performed By: #### H MAYKEL BMP3 #### [facility] [address] [place] [address] Sodium [Moles/Vol] 137 mmol/L Normal 135-145 [facility] Comment on above: Performed By: #### Kerri BRAR BMP3 #### [facility] [address] [place] [address] Anion gap [Moles/Vol] 6 mmol/L 3 - 13 mmol/L [facility] Work Phone: Calcium [Mass/Vol] 8.4 mg/dL 8.4 - 10. 4 mg/dL [facility] Work Phone: Chloride [Moles/Vol] 104 mmol/L 98 - 10 7 mmol/L [facility] Work Phone: CO2 [Moles/Vol] 27 mmol/L 22 - 30 mmol/L [facility] Work Phone: Creatinine [Mass/Vol] 0.51 mg/dL Low 0.52 - 1.25 mg/dL [facility] Work Phone: EGFR IF NonAfrican Japanese >90.0 >60 mL/min [facility] Work Phone: Comment [...] 106 mg/dL High 70 - 100 mg/dL [facility] Work Phone: Interpretation and review of laboratory results Abnormal [facility] Work Phone: Potassium [Moles/Vol] 3.9 mmol/L 3.5 - 5.1 mmol/L [facility] Work Phone: Sodium [Moles/Vol] 137 mmol/L 135 - 145 mmol/L [facility] Work Phone: Urea nitrogen (BldV) [Mass/Vol] 14 mg/dL 7 - 17 mg/dL [facility] Work Phone: Test Performed by [facility], [address] [place], [place] [id number] [place] [address] LAB [facility] Work Phone: C-Reactive Proteinon 021 CRP [Mass/Vol] 228.1 mg/L High 0.0-9.9 [facility] Comment on above: Result Comment: . Performed By: #### H EMD, BMP3 #### [facility] [address] [place] [address] CRP [Mass/Vol] 228.1 mg/L High 0.0 - 9.9 mg/L [facility] Work Phone: Comment on above: . Interpretation and review of laboratory results Abnormal [facility] Work Phone: Test Performed by [facility], [address] [place], [place] [id number] [place] [address] LAB [facility] Work Phone: COVID and Resp PCR Panelon 1 05-20-2020 SARS-CoV-2 (COVID-19) RNA SHIRLEY+probe Ql (Unsp spec) COVID and Resp PCR Panel --> Status: F POSITIVE: Respiratory Syncytial Virus DETECTED. _ Expected Result: Not Detected [facility] [employer] Upper Respiratory Pathogens PCR Panel can detect the following targets: SARS-CoV-2, Adenovirus, Coronavirus 229E, Coronavirus HKU1, Coronavirus NL63, Coronavirus OC43, Human Metapneumovirus, Human Rhinovirus/Enteroviru s, Influenza A, Influenza B, Parainfluenza Virus 1, Parainfluenza Virus 2, Parainfluenza Virus 3, Parainfluenza Virus 4, Respiratory Syncytial Virus, Bordetella pertussis, Bordetella parapertussis, Chlamydia pneumoniae, Mycoplasma pneumoniae. Method: Real-time PCR. _ Expected Result: Not Detected [employer] Upper Respiratory Pathogens PCR Panel can detect the following targets: SARS-CoV-2, Adenovirus, Coronavirus 229E, Coronavirus HKU1, Coronavirus NL63, Coronavirus OC43, Human Metapneumovirus, Human Rhinovirus/Enteroviru s, Influenza A, Influenza B, Parainfluenza Virus 1, Parainfluenza Virus 2, Parainfluenza Virus 3, Parainfluenza Virus 4, Respiratory Syncytial Virus, Bordetella pertussis, Bordetella parapertussis, Chlamydia pneumoniae, Mycoplasma pneumoniae. Method: Real-time PCR. Abnormal [facility] Comment on above: Performed By: #### B FRP2 #### [facility] [address] [place] [id number] EKG 12 Lead - Chest Painon 1 05-20-2020 [facility] Test Date: 2021-03-19 Pat Name: KATHYA HOOPER Department: 1 Room: 465 Gender: M Pension Manager: SHAILA : 1955 Requested By: BRADY DESAI Order Number: [id number] Reading MD: Fei Menjivar Measurements Intervals [place] Rate: 102 P: 71 CO: 172 QRS: -30 QRSD: 156 T: 85 QT: 412 QTc: 537 Interpretive Statements SINUS TACHYCARDIA LEFT BUNDLE BRANCH BLOCK Electronically Signed On 03-20-2021 22:47:41 EST by Fei BARNETT CARDIOLOGY Fei Menjivra MD - 03/20/2021 [facility] Test Date: 2021-03-19 Pat Name: KATHYA HOOPER Department: 1 Room: 465 Gender: M Pension Manager: SHAILA : 1955 Requested By: BRADY DESAI Order Number: [id number] Reading MD: Fei Menjivar Measurements Intervals [place] Rate: 102 P: 71 CO: 172 QRS: -30 QRSD: 156 T: 85 QT: 412 QTc: 537 Interpretive Statements SINUS TACHYCARDIA LEFT BUNDLE BRANCH BLOCK Electronically Signed On 03-20-2021 22:47:41 EST by Fei BARNETT Work Phone: EKG 12 Lead - Chest PainOrde red By: Fei Menjivar on 03-20-2021 [facility] Work Phone: Lactic Acidon 03-20-2021 Lactate [Moles/Vol] 0.7 mmol/L Normal 0.7-2.0 [facility] Comment on above: Performed By: #### H EMDF, BMP3 #### [facility] [address] [place] [address] Lactic Acid, Plasmaon 2020 Lactate [Moles/Vol] 0.7 mmol/L 0.7 - 2. 0 mmol/L [facility] Work Phone: Test Performed by [employer], [address] [place], [place] [address] [facility] LAB [facility] Work Phone: PROCALCITONINon 03-20-2021 Interpretation See Below [facility] Work Phone: Comment on above: PCT <0.50 = Low risk of severe sepsis and/or septic shock. PCT >2.00 = High risk of severe sepsis and/or septic shock. Interpretation and review of laboratory results Abnormal [facility] Work Phone: Test Performed by [facility], [address] [place] [id number] [place] [address] LAB [facility] Work Phone: Procalcitoninon 03-20-2021 Procalcitonin 0.14 ng/mL High 0.00-0.09 [facility] Work Phone: Comment on above: Performed By: #### H EMDF, BMP3 #### [employer] [facility] [address] [place] [address] Interpretation See Below Normal [facility] Comment on above: Result Comment: PCT <0.50 = Low risk of severe sepsis and/or septic shock. PCT >2.00 = High risk of severe sepsis and/or septic shock. Performed By: #### H EMDF, BMP3 #### [facility] [address] [place] [address] Troponinon 03-20-2021 Interpretation and review of laboratory results Abnormal [facility] Work Phone: Troponin I.cardiac [Mass/Vol] 0.037 ng/mL High 0.000 - 0.034 ng/mL [facility] Work Phone: Comment on above: . Test Performed by [employer], [address], [place], [place] [address] [facility] LAB [facility] Work Phone: Troponin Ion 03-20-2021 Troponin I.cardiac [Mass/Vol] 0.037 ng/mL High 0.000-0.034 [facility] Comment on above: Result Comment: . Performed By: #### H EMDF, BMP3 #### [facility] [address] [place] [address] Arterial Blood Gas Respirato yasmine 03-19-2021 Base Excess 1.2 mmol/L Normal -3.0-3.0 [facility] Comment on above: Performed By: #### B GLU #### [facility] [address] [place] [address] CO2 [Moles/Vol] 25.6 mmol/L Normal 23.0-27.0 [facility] Comment on above: Performed By: #### B GLU #### [facility] [address] [place] [address] FIO2 5 Normal [facility] Comment on above: Result Comment: Perf ormed by CLIA ID: [id number] [place], [place] Performed By: #### B GLU #### [facility] [address] [place] [address] HCO3 (Bld) [Moles/Vol] 24.6 mmol/L Normal 21.0-25.0 [facility] Comment on above: Performed By: #### B GLU #### [facility] [address] [place] [address] Oxygen (Bld) [Partial pressure] 56.7 mm[Hg] Low 80.0-100.0 [facility] Comment on above: Performed By: #### B GLU #### [facility] [address] [place] [address] Oxygen saturation in Blood 91.0 % Low 95.0-100.0 [facility] Comment on above: Performed By: #### B GLU #### [facility] [address] [place] [address] pCO2 33.9 mm[Hg] Low 35.0-45.0 [facility] Comment on above: Performed By: #### B GLU #### [facility] [address] [place] [address] pH 7.468 High 7.350-7.450 [facility] Comment on above: Performed By: #### B GLU #### [facility] [address] [place] [address] Basic Metabolic Panelon 11-1 Anion gap [Moles/Vol] 9 mmol/L Normal 3-13 [facility] Comment on above: Performed By: #### B MP3, TROPN ####[facility] [place] [address] Calcium [Mass/Vol] 8.5 mg/dL Normal 8.4-10.4 [facility] Comment on above: Performed By: #### B MP3, TROPN ####[facility] [place] [address] CO2 [Moles/Vol] 26 mmol/L Normal 22-30 [facility] Comment on above: Performed By: #### B MP3, TROPN ####[facility] [place] [address] Creatinine [Mass/Vol] 0.48 mg/dL Low 0.52-1.25 [facility] Comment on above: Performed By: #### B MP3, TROPN ####[facility] [place] [address] eGFR OTHER > 90.0 Normal >60 [facility] Comment on above: Result Comment: KDIG O [...] secretion. Performed By: #### B MP3, TROPN ####[facility] [place] [address] GFR/1.73 sq M.predicted among blacks MDRD (S/P/Bld) [Vol rate/Area] mL/min/{1.73_m2} Normal >60 [facility] Comment on above: Performed By: #### B MP3, TROPN ####[facility] [place] [address] Glucose [Mass/Vol] 132 mg/dL High 70-100 [facility] Comment on above: Performed By: #### B MP3, TROPN ####[place] [address] [place] [address] Urea nitrogen [Mass/Vol] 16 mg/dL Normal 7-17 [facility] Comment on above: Performed By: #### B MP3, TROPN ####[place] [address] [place] [address] Chloride [Moles/Vol] 102 mmol/L Normal 98-107 [facility] Comment on above: Performed By: #### B MP3, TROPN ####[place] [address] [place] [address] Potassium [Moles/Vol] 4.1 mmol/L Normal 3.5-5.1 [facility] Comment on above: Performed By: #### B MP3, TROPN ####[facility] [place] [address] Sodium [Moles/Vol] 137 mmol/L Normal 135-145 [facility] Comment on above: Performed By: #### B MP3, TROPN ####[facility] [place] [address] Anion gap [Moles/Vol] 9 mmol/L 3 - 13 mmol/L [facility] Calcium [Mass/Vol] 8.5 mg/dL 8.4 - 10. 4 mg/dL [facility] Chloride [Moles/Vol] 102 mmol/L 98 - 10 7 mmol/L [facility] CO2 [Moles/Vol] 26 mmol/L 22 - 30 mmol/L [facility] Creatinine [Mass/Vol] 0.48 mg/dL Low 0.52 - 1.25 mg/dL [facility] EGFR IF NonAfrican Japanese >90.0 >60 mL/min [facility] Comment on above: [...] [Mass/Vol] 16 mg/dL 7 - 17 mg/dL [facility] Test Performed by [facility], [address] [place], [place] [address] [place] [address] LAB [facility] CBC Auto Differentialon 03-01 Absolute Baso # 0.1 10*3/uL 0.0 - 0.2 10*3/uL [facility] Absolute Neut # 7.2 10*3/uL High 1.8 - 7.0 10*3/uL [facility] Hemoglobin.gastrointest inal spec 1 Ql (Stl) 13.1 g/dL 13.0 - 18.0 g/dL [facility] MCHC (RBC) [Mass/Vol] 33.9 % 32.0 - 36.0 % [facility] Platelet distribution width (Bld) [Ratio] 13.0 % 11.5 - 14.5 % [facility] COVID-19, Flu A/B, and RSV C omboon 03-19-2021 Influenza A by PCR Not detected [facility] A Influenza B by PCR Not detected [facility] Interpretation and review of laboratory results Abnormal [facility] RSV PCR DETECTED Expected Result: Not Detected _ Method: Real-time, RT-PCR This assay was developed by [employer] and distributed under an Emergency Use Authorization (EUA) granted by the FDA for the qualitative detection of nucleic acids from SARS-CoV-2, Influenza A, Influenza B, and Respiratory Syncytial Virus. Provider and patient fact sheets can be found at https://www.fda.gov/ edia/718663/download and https://www.fda.gov/m edia/328282/download. Abnormal [facility] SARS-CoV-2 (COVID-19) RNA SHIRLEY+probe Ql (Unsp spec) Not detected [facility] Test Performed by [facility], [address] [place] [address] LAB [facility] CR Chest Portableon 03-19-20 21 CR Chest Portable Patient Name: KATHYA HOOPER Diagnostic Radiology ACCESSION EXAM DATE/TIME PROCEDURE ORDERING PROVIDER [id number] 03/19/2021 17:10 EST CR Chest Portable [id number] -BRADY DESAI CPT code 76085 Reason For Exam (CR Chest Portable) hypoxia [...] J Transcribed Date and Time: 03/19/2021 5:22 [facility] ED Provider Noteon ED Provider Note Emergency Department Encounter [facility] ED Patient: Kathya Hooper : 1955 Date of Evaluation: 03/19/2021 ED Provider: Brady Desai, DO Chief Complaint Chief Complaint Patient presents with ? Shortness of Breath PAUMA I wore appropriate PPE for the entirety of this encounter. Does this patient come from an ECF, SNF, Rehab, Assisted or other Congregate setting: yes (If yes [...] otherwise acutely negative except as in the PAUMA. Past History Past Medical History: Diagnosis Date [...] and Family: Not on file ? Attends [employer] Services: Not on file ? Active Member [...] TABLET T (more content not included)... Normal [facility] Hemogram w/ Autodiffon 03-19 Abs Baso Cnt 0.1 10*3/uL Normal 0.0-0.2 [facility] Comment on above: Performed By: #### B GLU #### [facility] [address] [place] [address] Abs Neutrophile Cnt 7.2 10*3/uL High 1.8-7.0 [facility] Comment on above: Performed By: #### B GLU #### [facility] [address] [place] [address] Basophils/100 WBC (Bld) 0.6 % Normal 0.0-2.0 [facility] Comment on above: Performed By: #### B GLU #### [facility] [address] [place] [address] Eosinophils (Bld) [#/Vol] 0.0 10*3/uL Normal 0.0-0.5 [facility] Comment on above: Performed By: #### B GLU #### [facility] [address] [place] [address] Eosinophils/100 WBC (Bld) 0.2 % Low 1.0-6.0 [facility] Comment on above: Performed By: #### B GLU #### [facility] [address] [place] [address] Erythrocyte distribution width (RBC) [Ratio] 13.0 % Normal 11.5-14.5 [facility] Comment on above: Performed By: #### B GLU #### [facility] [address] [place] [address] Granulocytes/100 WBC (Bld) 79.0 % Normal 40.0-80.0 [facility] Comment on above: Performed By: #### B GLU #### [facility] [address] [place] [address] Hematocrit (Bld) [Volume fraction] 38.5 % Low 40.0-52.0 [facility] Comment on above: Performed By: #### B GLU #### [place] [address] [place] [address] Hemoglobin (Bld) [Mass/Vol] 13.1 g/dL Normal 13.0-18.0 [facility] Comment on above: Performed By: #### B GLU #### [place] [address] [place] [address] Lymphocytes (Bld) [#/Vol] 1.0 10*3/uL Normal 1.0-4.3 [facility] Comment on above: Performed By: #### B GLU #### [place] [address] [place] [address] Lymphocytes/100 WBC (Bld) 10.8 % Low 20.0-40.0 [facility] Comment on above: Performed By: #### B GLU #### [place] [address] [place] [address] MCH (RBC) [Entitic mass] 30.9 pg Normal 26.0-34.0 [facility] Comment on above: Performed By: #### B GLU #### [place] [address] [place] [address] MCHC 33.9 % Normal 32.0-36.0 [facility] Comment on above: Performed By: #### B GLU #### [facility] [address] [place] [address] MCV (RBC) [Entitic vol] 91.1 fL Normal 80.0-98.0 [facility] Comment on above: Performed By: #### B GLU #### [place] [address] [place] [address] Monocytes (Bld) [#/Vol] 0.9 10*3/uL High 0.0-0.8 [facility] Comment on above: Performed By: #### B GLU #### [place] [address] [place] [address] Monocytes/100 WBC (Bld) 9.4 % Normal 2.0-10.0 [facility] Comment on above: Performed By: #### B GLU #### [facility] [address] [place] [address] Platelet mean volume (Bld) [Entitic vol] 9.9 fL Normal 7.4-10.4 [facility] Comment on above: Performed By: #### B GLU #### [facility] [address] [place] [address] Platelets (Bld) [#/Vol] 163 10*3/uL Normal 140-440 [facility] Comment on above: Performed By: #### B GLU #### [facility] [address] [place] [address] RBC (Bld) [#/Vol] 4.23 10*6/uL Low 4.40-5.90 [facility] Comment on above: Performed By: #### B GLU #### [facility] [address] [place] [address] WBC (Bld) [#/Vol] 9.1 10*3/uL Normal 3.6-10.7 [facility] Comment on above: Performed By: #### B GLU #### [facility] [employer] [facility] [address] [place] [address] Lactic Acidon 03-19-2021 Lactate [Moles/Vol] 2.3 mmol/L Critically high 0.7-2.0 [facility] Comment on above: Performed By: #### L ACT3 ####[facility] [place] [address] Lactic Acid, Plasmaon 2020 Lactate [Moles/Vol] 2.3 mmol/L Critically high 0.7 - 2.0 mmol/L [facility] No Panel Informationon 03-19 Interpretation and review of laboratory results Abnormal [facility] Test Performed by [facility], [address] [place] [address] [facility] RBC MORPHOLOGYon 03-19-2021 Poikilocytes Slight [facility] RBC (Bld) [#/Vol] ABNORMAL [facility] Tear Drop Cells Slight [facility] RBC Morphologyon 03-19-2021 Ovalocytes Slight Normal [facility] Comment on above: Performed By: #### B GLU #### [facility] [address] [place] [address] Poikilocytosis Slight Normal [facility] Comment on above: Performed By: #### B GLU #### [facility] [address] [place] [address] Polychromasia Slight Normal [facility] Comment on above: Performed By: #### B GLU #### [facility] [address] [place] [address] RBC morphology finding Nom (Bld) ABNORMAL Normal [facility] Comment on above: Performed By: #### B GLU #### [facility] [address] [place] [address] Tear Drop Forms Slight Normal [facility] Comment on above: Performed By: #### B GLU #### [facility] [address] [place] [address] Respiratory Panel, Molecular , with COVID-19 (Restricted: peds pts or suitable admitted adults)on 03-19-2021 Interpretation and review of laboratory results Abnormal [facility] Respiratory Panel Molecular, with COVID POSITIVE: Respiratory Syncytial Virus DETECTED. _ Expected Result: Not Detected [employer] Upper Respiratory Pathogens PCR Panel can detect the following targets: SARS-CoV-2, Adenovirus, Coronavirus 229E, Coronavirus HKU1, Coronavirus NL63, Coronavirus OC43, Human Metapneumovirus, Human Rhinovirus/Enteroviru s, Influenza A, Influenza B, Parainfluenza Virus 1, Parainfluenza Virus 2, Parainfluenza Virus 3, Parainfluenza Virus 4, Respiratory Syncytial Virus, Bordetella pertussis, Bordetella parapertussis, Chlamydia pneumoniae, Mycoplasma pneumoniae. Method: Real-time PCR. Abnormal [facility] Test Performed by [facility], [address] [place] [id number] [place] [address] LAB [facility] SARS-CoV-2, Flu A/B and RSVo n 03-19-2021 SARS-CoV-2 (COVID-19) RNA SHIRLEY+probe Ql (Unsp spec) SARS-CoV-2 --> Status: F Not Detected. Flu A PCR --> Status: F Not Detected. Flu B PCR --> Status: F Not Detected. RSV PCR --> Status: F DETECTED Expected Result: Not Detected _ Method: Real-time, RT-PCR This assay was developed by [employer] and distributed under an Emergency Use Authorization (EUA) granted by the FDA for the qualitative detection of nucleic acids from SARS-CoV-2, Influenza A, Influenza B, and Respiratory Syncytial Virus. Provider and patient fact sheets can be found at https://www.[facility].gov/ edia/895751/download and https://www.[facility].gov/ edia/522351/download. Expected Result: Not Detected _ Method: Real-time, RT-PCR This assay was developed by [employer] and distributed under an Emergency Use Authorization (EUA) granted by the FDA for the qualitative detection of nucleic acids from SARS-CoV-2, Influenza A, Influenza B, and Respiratory Syncytial Virus. Provider and patient fact sheets can be found at https://www.[facility].gov/ 2-Observeia/422764/download and https://www.[facility].gov/ 2-Observeia/840274/download. Abnormal [facility] Comment on above: Performed By: #### C VFLR #### [facility] [address] [place] [address] , [address] Troponinon 03-19-2021 Troponin I.cardiac [Mass/Vol] 0.017 ng/mL 0.000 - 0.034 ng/mL [facility] Comment on above: . Test Performed by [facility], [address] [place], [place] [address] [facility] LAB [facility] Troponin Ion 03-19-2021 Troponin I.cardiac [Mass/Vol] 0.017 ng/mL Normal 0.000-0.034 [facility] Comment on above: Result Comment: . Performed By: #### B MP3, TROPN ####[facility] [place] [address] XR CHEST PORTABLEon 03-19-20 Patient Name: KATHYA HOOPER Diagnostic Radiology ACCESSION EXAM DATE/TIME PROCEDURE ORDERING PROVIDER [id number] 03/19/2021 17:10 EST CR Chest Portable [id number] -NESHEIM, BRADY CPT code 23429 Reason For Exam (CR Chest Portable) hypoxia [...] MD - 03/19/2021 [facility]: [id number] Diagnostic Radiology ACCESSION EXAM DATE/TIME PROCEDURE ORDERING PROVIDER [id number] 03/19/2021 17:10 EST CR Chest Portable [id number] -NESHEIM, BRADY CPT code 14504 Reason For Exam (CR Chest Portable) hypoxia [...] and Time: 03/19/2021 5:22 [facility] Work Phone: Radiology Study observation (narrative) [facility] Work Phone: XR CHEST PORTABLEOrdered By: Keshawn Simpson on 03-19-2021 [facility] Work Phone: Basic Metabolic Panelon - Calcium [Mass/Vol] 8.4 mg/dL Normal 8.4-10.4 [facility] Comment on above: Performed By: #### H MAYKEL BMP3 #### [facility] [address] [place] [address] Glucose [Mass/Vol] 110 mg/dL High 70-100 [facility] Comment on above: Performed By: #### H MAYKEL BMP3 #### [facility] [address] [place] [address] Anion gap [Moles/Vol] 7 mmol/L Normal 3-13 [facility] Comment on above: Performed By: #### H MAYKEL BMP3 #### [facility] [address] [place] [address] CO2 [Moles/Vol] 26 mmol/L Normal 22-30 [facility] Comment on above: Performed By: #### H MAYKEL BMP3 #### [facility] [address] [place] [address] Creatinine [Mass/Vol] 0.54 mg/dL Normal 0.52-1.25 [facility] Comment on above: Performed By: #### H MAYKEL BMP3 #### [facility] [address] [place] [address] eGFR OTHER > 90.0 Normal >60 [facility] Comment on above: Result Comment: KDIG O [...] Performed By: #### H MAYKEL BMP3 #### [facility] [address] [place] [address] GFR/1.73 sq M.predicted among blacks MDRD (S/P/Bld) [Vol rate/Area] mL/min/{1.73_m2} Normal >60 [facility] Comment on above: Performed By: #### H EMDF, BMP3 #### [facility] [address] [place] [address] Urea nitrogen [Mass/Vol] 18 mg/dL High 7-17 [facility] Comment on above: Performed By: #### H EMDF, BMP3 #### [facility] [address] [place] [address] Potassium [Moles/Vol] 3.9 mmol/L Normal 3.5-5.1 [facility] Comment on above: Performed By: #### H EMDF, BMP3 #### [facility] [address] [place] [address] Chloride [Moles/Vol] 104 mmol/L Normal 98-107 [facility] Comment on above: Performed By: #### H EMDF, BMP3 #### [facility] [address] [place] [address] Sodium [Moles/Vol] 137 mmol/L Normal 135-145 [facility] Comment on above: Performed By: #### H EMDF, BMP3 #### [facility] [address] [place] [address] Anion gap [Moles/Vol] 7 mmol/L 3 - 13 mmol/L [facility] Calcium [Mass/Vol] 8.4 mg/dL 8.4 - 10. 4 mg/dL [facility] Chloride [Moles/Vol] 104 mmol/L 98 - 10 7 mmol/L [facility] CO2 [Moles/Vol] 26 mmol/L 22 - 30 mmol/L [facility] Creatinine [Mass/Vol] 0.54 mg/dL 0.52 - 1.25 mg/dL [facility] EGFR IF NonAfrican Japanese >90.0 >60 mL/min [facility] Comment on above: KDIGO guidelines pro vide [...] 110 mg/dL High 70 - 100 mg/dL [facility] Interpretation and review of laboratory results Abnormal [facility] Potassium [Moles/Vol] 3.9 mmol/L 3.5 - 5.1 mmol/L [facility] Sodium [Moles/Vol] 137 mmol/L 135 - 145 mmol/L [facility] Urea nitrogen (BldV) [Mass/Vol] 18 mg/dL High 7 - 17 mg/dL [facility] Brain Natriuretic Peptideon 03-18-2021 Interpretation and review of laboratory results Abnormal [facility] Natriuretic peptide B (Bld) [Mass/Vol] 710 pg/mL High 0 - 125 pg/mL [facility] Test Performed by [facility], [address] [place] [address] LAB [facility] CBC Auto Differentialon 03-01 Absolute Baso # [...] (Stl) 13.6 g/dL 13.0 - 18.0 g/dL [facility] Interpretation and review of laboratory results [...] [#/Vol] 8.8 10*3/uL 3.6 - 10.7 10*3/uL [facility] Test Performed by [facility], [address], [place], [place] [id number] [place] [address] LAB [facility] COVID-19, Flu A/B, and RSV C [facility] 03-18-2021 Influenza A by PCR Not detected [facility] Influenza B by PCR Not detected [facility] Interpretation and review of laboratory results Abnormal [facility] RSV PCR DETECTED Expected Result: Not Detected _ Method: Real-time, RT-PCR This assay was developed by [employer] and distributed under an Emergency Use Authorization (EUA) granted by the FDA for the qualitative detection of nucleic acids from SARS-CoV-2, Influenza A, Influenza B, and Respiratory Syncytial Virus. Provider and patient fact sheets can be found at https://www.[facility].gov/m edia/427822/download and https://www.fda.gov/m edia/240113/download. Abnormal [facility] SARS-CoV-2 (COVID-19) RNA SHIRLEY+probe Ql (Unsp spec) Not detected [facility] Test Performed by [facility], [address], [place] [id number] [place] [address] LAB [facility] CR Chest Portableon 03-18-20 21 CR Chest Portable Patient Name: KATHYA HOOPER Diagnostic Radiology ACCESSION EXAM DATE/TIME PROCEDURE ORDERING PROVIDER [id number] 03/18/2021 15:30 EST CR Chest Portable [id number] -BOO CASTRO CPT code 42193 Reason For Exam (CR Chest Portable) sob, [...] Transcribed Date and Time: 03/18/2021 3:35 Normal [facility] CTA Chest W WO (PE study)on 03-18-2021 Patient Name: KATHYA HOOPER Computed Tomography ACCESSION EXAM DATE/TIME PROCEDURE ORDERING PROVIDER [id number] 03/18/2021 16:27 EST CTA Chest w/ + w/o [id number] -Alyson CASTRO CPT code 95243 Q9967 Reason For Exam (CTA Chest w/ [...] MALAY Transcribed Date and Time: 03/18/2021 4:36 [facility] Malcolm Michaels MD - 03/18/2021 Patient Name: KATHYA HOOPER Computed Tomography ACCESSION EXAM DATE/TIME PROCEDURE ORDERING PROVIDER [id number] 03/18/2021 16:27 EST CTA Chest w/ + w/o [id number] [facility] CPT code 62876 Q9967 Reason For Exam (CTA Chest w/ [...] Tomography ACCESSION EXAM DATE/TIME PROCEDURE ORDERING PROVIDER [id number] 03/18/2021 16:27 EST CTA Chest w/ + w/o [id number] -Alyson CASTRO CPT code 39964 Q9967 Reason For Exam (CTA Chest w/ + w/o Contrast) pulmonary embolus Report CTA chest with and without contrast History: chest pain Protocol: 1 mm images after IV contrast, 3D rendering performed by mn on a separate workstation No evidence of aortic dissection or pulmonary embolism. Patchy scattered bilateral lung infiltrates. Minimal left pleural effusion. No lymphadenopathy. IMPRESSION: Patchy scattered bilateral lung infiltrates. Minimal left pleural effusion. Report Dictated on Final Dictating Physician: MD MICHAELS MALAY Signed Date and Time: 03/18/2021 4:35 pm Signed by: MD MICHAELS MALAY Transcribed Date and Time: 03/18/2021 4:36 Normal [facility] CTA HEAD NECK W WO CONTRASTo n 03-18-2021 Patient Name: KATHYA HOOPER Computed Tomography ACCESSION EXAM DATE/TIME PROCEDURE ORDERING PROVIDER [id number] 03/18/2021 16:26 EST CTA Head/Neck w/ + w/o [id number] -alyson CASTRO CPT code 42764 20848 Q9967 Reason For Exam (CTA Head/Neck w/ + w/o contrast) AMS, dysphasia and ?aphasia possibly since yesterday- very poor historian from [place] w/ unclear prior deficits - here w/ [...] OSAMA Transcribed Date and Time: 03/18/2021 4:52 [facility] Greyson Rai MD - 03/18/2021 Patient Name: KATHYA HOOPER Computed Tomography ACCESSION EXAM DATE/TIME PROCEDURE ORDERING PROVIDER [id number] 03/18/2021 16:26 EST CTA Head/Neck w/ + w/o [id number] alyson ARCHIBALD CPT code 25978 43089 Q9967 Reason For Exam (CTA Head/Neck w/ + w/o contrast) AMS, dysphasia and ?aphasia possibly since yesterday- very poor historian from [place] [facility] w/ unclear prior deficits - here w/ [...] Tomography ACCESSION EXAM DATE/TIME PROCEDURE ORDERING PROVIDER [id number] 03/18/2021 16:26 EST CTA Head/Neck w/ + w/o [id number] -alyson CASTRO CPT code 62403 98790 Q9967 Reason For Exam (CTA Head/Neck w/ + w/o contrast) AMS, dysphasia and ?aphasia possibly since yesterday- very poor historian from [place] [facility] w/ unclear prior deficits - here w/ [...] Transcribed Date and Time: 03/18/2021 4:52 Normal [facility] ED Provider Noteon ED Provider Note PIEDAD [...] patient come from an ECF, SNF, Rehab, Assisted or other Congregate setting: no (If yes to above patient needs a Covid-19 test) HPI Kathya Hooper is a 66 y.o. 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 Normal [facility] Hemogram w/ Autodiffon 03-18 Abs Baso Cnt 0.0 10*3/uL Normal 0.0-0.2 [facility] Comment on above: Performed By: #### H MAYKEL BMP3 #### [facility] [address] [place] [address] Abs Neutrophile Cnt 7.3 10*3/uL High 1.8-7.0 [facility] Comment on above: Performed By: #### H MAYKEL BMP3 #### [facility] [address] [place] [address] Basophils/100 WBC (Bld) 0.5 % Normal 0.0-2.0 S [facility] Comment on above: Performed By: #### H MAYKEL BMP3 #### [facility] [address] [place] [address] Eosinophils (Bld) [#/Vol] 0.0 10*3/uL Normal 0.0-0.5 [facility] Comment on above: Performed By: #### H MAYKEL BMP3 #### [facility] [address] [place] [address] Eosinophils/100 WBC (Bld) 0.1 % Low 1.0-6.0 [facility] Comment on above: Performed By: #### H MAYKEL BMP3 #### [facility] [address] [place] [address] Erythrocyte distribution width (RBC) [Ratio] 12.9 % Normal 11.5-14.5 [facility] Comment on above: Performed By: #### H EMDMaurice BMP3 #### [facility] [address] [place] [address] Granulocytes/100 WBC (Bld) 82.8 % High 40.0-80.0 [facility] Comment on above: Performed By: #### H MAYKEL BMP3 #### [facility] [address] [place] [address] Hematocrit (Bld) [Volume fraction] 38.3 % Low 40.0-52.0 [facility] Comment on above: Performed By: #### H MAYKEL BMP3 #### [facility] [address] [place] [address] Hemoglobin (Bld) [Mass/Vol] 13.6 g/dL Normal 13.0-18.0 [facility] Comment on above: Performed By: #### H MAYKEL BMP3 #### [facility] [address] [place] [address] Lymphocytes (Bld) [#/Vol] 0.7 10*3/uL Low 1.0-4.3 [facility] Comment on above: Performed By: #### H EMDF BMP3 #### [facility] [address] [place] [address] Lymphocytes/100 WBC (Bld) 7.6 % Low 20.0-40.0 [facility] Comment on above: Performed By: #### H EMDMaurice BMP3 #### [facility] [address] [place] [address] MCH (RBC) [Entitic mass] 32.0 pg Normal 26.0-34.0 [facility] Comment on above: Performed By: #### H MAYKEL BMP3 #### [facility] [address] [place] [address] MCHC 35.4 % Normal 32.0-36.0 [facility] Comment on above: Performed By: #### H EMDF, BMP3 #### [facility] [address] [place] [address] MCV (RBC) [Entitic vol] 90.2 fL Normal 80.0-98.0 [facility] Comment on above: Performed By: #### H EMDF, BMP3 #### [facility] [address] [place] [address] Monocytes (Bld) [#/Vol] 0.8 10*3/uL Normal 0.0-0.8 [facility] Comment on above: Performed By: #### H EMDMaurice BMP3 #### [facility] [address] [place] [address] Monocytes/100 WBC (Bld) 9.0 % Normal 2.0-10.0 [facility] Comment on above: Performed By: #### H EMDMaurice BMP3 #### [facility] [address] [place] [address] Platelet mean volume (Bld) [Entitic vol] 9.8 fL Normal 7.4-10.4 [facility] Comment on above: Performed By: #### H EMDMaurice BMP3 #### [facility] [address] [place] [address] Platelets (Bld) [#/Vol] 129 10*3/uL Low 140-440 [facility] Comment on above: Performed By: #### H EMDF BMP3 #### [facility] [address] [place] [address] RBC (Bld) [#/Vol] 4.24 10*6/uL Low 4.40-5.90 [facility] Comment on above: Performed By: #### H EMDF, BMP3 #### [facility] [address] [place] [address] WBC (Bld) [#/Vol] 8.8 10*3/uL Normal 3.6-10.7 [facility] Comment on above: Performed By: #### H EMDF BMP3 #### [facility] [address] [place] [address] MAGNESIUMon 03-18-2021 Magnesium [Mass/Vol] 2.0 mg/dL 1.6 - 2 .3 mg/dL [facility] Magnesiumon 03-18-2021 Magnesium [Mass/Vol] 2.0 mg/dL Normal 1.6-2.3 [facility] Comment on above: Performed By: #### H KORIN BRAR3 #### [facility] [address] [place] [address] NT pro BNPon 03-18-2021 Natriuretic peptide B (Bld) [Mass/Vol] 710 pg/mL High 0-125 [facility] Comment on above: Performed By: #### H KORIN BRAR3 #### [facility] [address] [place] [address] No Panel Informationon 03-18 Test Performed by [facility], [facility] [address] LAB [facility] PROTIME/INR & PTTon 03-18-20 aPTT Coag (Bld) [Time] 30.7 s High 20.0 - 30.5 s [facility] Comment on above: NOTE: The therapeuti c time for Heparin anticoagulation, based on Xa activity inhibition, is an APTT of 46-80 seconds. INR Coag (Bld) [Relative time] 1.1 {INR} [facility] Comment on above: Recommended Anticoag ulant Therapy: [...] Interpretation and review of laboratory results Abnormal [facility] PT Coag (PPP) [Time] 11.4 s 9.0 - 12.0 s [facility] Comment on above: . Test Performed by [facility], [address] [place], [place] [id number] [place] [address] LAB [facility] Protime AND APTTon aPTT Coag (Bld) [Time] 30.7 s High 20.0-30.5 [facility] Comment on above: Result Comment: NOTE : The therapeutic time for Heparin anticoagulation, based on Xa activity inhibition, is an APTT of 46-80 seconds. Performed By: #### H MITALI BRAR #### [facility] [address] [place] [address] INR 1.1 Normal 0.9-1.1 [facility] Comment on above: Result Comment: Yefri mmended [...] Performed By: #### H MITALI BRAR #### [facility] [address] [place] [address] PT Coag (PPP) [Time] 11.4 s Normal 9.0-12.0 [facility] Comment on above: Result Comment: . Performed By: #### H KORIN BRAR3 #### [facility] [address] [place] [address] SARS-CoV-2, Flu A/B and RSVo n 03-18-2021 SARS-CoV-2 (COVID-19) RNA SHIRLEY+probe Ql (Unsp spec) SARS-CoV-2 --> Status: F Not Detected. Flu A PCR --> Status: F Not Detected. Flu B PCR --> Status: F Not Detected. RSV PCR --> Status: F DETECTED Expected Result: Not Detected _ Method: Real-time, RT-PCR This assay was developed by [employer] and distributed under an Emergency Use Authorization (EUA) granted by the FDA for the qualitative detection of nucleic acids from SARS-CoV-2, Influenza A, Influenza B, and Respiratory Syncytial Virus. Provider and patient fact sheets can be found at https://www.fda.gov/m edia/671833/download and https://www.fda.gov/m edia/446671/download. Expected Result: Not Detected _ Method: Real-time, RT-PCR This assay was developed by [employer] and distributed under an Emergency Use Authorization (EUA) granted by the FDA for the qualitative detection of nucleic acids from SARS-CoV-2, Influenza A, Influenza B, and Respiratory Syncytial Virus. Provider and patient fact sheets can be found at https://www.[facility].gov/ edia/768751/download and https://www.[facility].gov/ edia/904540/download. Abnormal [facility] Comment on above: Performed By: #### C VFLR #### [facility] [address] [place] [address] , [address] TS GELon 03-18-2021 TS GEL ABO Group: O Rh, Gel: POS Antibody Screen Gel: NEG Normal [facility] Comment on above: Performed By: #### T SGL #### [facility] TYPE AND SCREENon 03-18-2021 ABO Grouping O [facility] Rh Type Positive [facility] Test Performed by [facility], [address], [place], [place] [address] [facility] XR CHEST PORTABLEon 03-18-20 Patient Name: KATHYA HOOPER Diagnostic Radiology ACCESSION EXAM DATE/TIME PROCEDURE ORDERING PROVIDER [id number] 03/18/2021 15:30 EST CR Chest Portable [id number] BOO CASTRO CPT code 64798 Reason For Exam (CR Chest Portable) sob, [...] KRIKOR Transcribed Date and Time: 03/18/2021 3:35 [facility] Alejandra Turner MD - 03/18/2021 [id number] Diagnostic Radiology ACCESSION EXAM DATE/TIME PROCEDURE ORDERING PROVIDER [id number] 03/18/2021 15:30 EST CR Chest Portable [id number] -BOO CASTRO CPT code 82711 Reason For Exam (CR Chest Portable) sob, [...] KRIKOR Transcribed Date and Time: 03/18/2021 3:35 [facility] Work Phone: Radiology Study observation (narrative) [facility] Work Phone: XR CHEST PORTABLEOrdered By: Alejandra Munoz on 03-18-2021 [facility] Work Phone: ED Provider Noteon ED Provider Note - Attestation signed by Edwin Montejo MD at 10/31/2020 7:09 AM Emergency Medicine Attending Note This patient was seen and treated independently by the professional wrestler. I was present and available in the [...] Diagnosis Date ? TREVER (acute kidney injury) ([facility]) ? Alcohol abuse 07/08/2018 ? Anxiety ? Depression ? Fall 06/2018 ? Schizophrenia ([facility]) SURGICALHISTORY Past Surgical History: Procedure Laterality [...] Strain: ? (more content not included)... Normal [facility] [place] GI TUBE EVALUATION W CONT RASTOrdered By: Helen Toledo on 10-30-2020 Patient Name: KATHYA HOOPER Fluoroscopy ACCESSION EXAM DATE/TIME PROCEDURE ORDERING PROVIDER [id number] 10/30/2020 15:07 EDT RF Intro Long GI Tube w/ KRISTA TOLEDO, HELEN Rojas CPT code 30572 Reason For Exam (RF Intro Long GI [...] Transcribed Date and Time: 10/30/2020 4:06 [facility] Work Phone: Jaquan, [facility] Incoming Radiology Results From [facility] - 10/30/2020 4:07 PM EDT Patient Name: KATHYA HOPOER Fluoroscopy ACCESSION EXAM DATE/TIME PROCEDURE ORDERING PROVIDER [id number] 10/30/2020 15:07 EDT RF Intro Long GI Tube w/ KRISTA TOLEDO AMY L Fluoro CPT code 16445 Reason For Exam (RF Intro Long GI [...] J Transcribed Date and Time: 10/30/2020 4:06 [facility] Work Phone: [facility] Work Phone: RF Intro Long GI Tube w/ Flu oroon 10-30-2020 RF Intro Long GI Tube w/ Fluoro Patient Name: KATHYA HOOPER Fluoroscopy ACCESSION EXAM DATE/TIME PROCEDURE ORDERING PROVIDER [id number] 10/30/2020 15:07 EDT RF Intro Long GI Tube w/ KRISTA TOLEDO AMY L Fluoro CPT code 97673 Reason For Exam (RF Intro Long GI [...] J Transcribed Date and Time: 10/30/2020 4:06 [facility] ED Provider Noteon ED Provider [facility] EMERGENCY DEPART[facility] ENCOUNTER Pt Name: Kathya Hooper Birthdate 1955 Date of evaluation: 09/22/2020 Provider: Elziabeth Moura MD CHIEF COMPLAINT Chief Complaint Patient [...] Gatherings with Friends and Family: ? Attends [employer] Services: ? Active Member of Clubs or [...] Soft, non-distended (more content not included)... Normal [facility] [place] GI TUBE EVALUATION W CONT RASTOrdered By: Elizabeth Moura on 09-22-2020 Patient Name: KATHYA HOOPER Fluoroscopy ACCESSION EXAM DATE/TIME PROCEDURE ORDERING PROVIDER [id number] 09/22/2020 04:09 EDT RF Intro Long GI Tube w/ 5816 -ELIZABETH MOURA CPT code 91262 Reason For Exam (RF Intro Long GI [...] [facility] In[facility] Results From [facility] - 09/22/2020 5:11 AM EDT Patient Name: KATHYA HOOPER Fluoroscopy ACCESSION EXAM DATE/TIME PROCEDURE ORDERING PROVIDER [id number] 09/22/2020 04:09 EDT RF Intro Long GI Tube w/ 5816 ELIZABETH BARBER CPT code 85430 Reason For Exam (RF Intro Long GI [...] and Time: 09/22/2020 5:11 [facility] Work Phone: [facility] Work Phone: RF Intro Long GI Tube w/ Flu oroon 09-22-2020 RF Intro Long GI Tube w/ Fluoro Patient Name: [id number] Fluoroscopy ACCESSION EXAM DATE/TIME PROCEDURE ORDERING PROVIDER [id number] 09/22/2020 04:09 EDT RF Intro Long GI Tube w/ 5816 -ELIZABETH MOURA CPT code 28862 Reason For Exam (RF Intro Long GI [...] Transcribed Date and Time: 09/22/2020 5:11 Normal [facility] ED Provider Noteon ED Provider Note [facility] [facility] ENCOUNTER Pt [...] otherwise acutely negative except as in the PAUMA. PAST MEDICAL HISTORY Past Medical History: Diagnosis [...] (AQUAPHOR) ointment Apply topically as needed. Balsam Froilan-Mission Oil (VENELEX) OINT ointment Apply topically every [...] for level (more content not included)... Normal [facility] [place] GI TUBE EVALUATION W BRANDON Warner 06-26-2020 Patient Name: KATHYA HOOPER Fluoroscopy ACCESSION EXAM DATE/TIME PROCEDURE ORDERING PROVIDER [id number] 06/26/2020 20:20 EST RF Intro Long GI Tube w/ [id number] -GOMBASH, ABELARDO Fluoro CPT code 27081 Reason For Exam (RF Intro Long GI [...] [facility] Incoming Radiology Results From [facility] - 06/26/2020 9:16 PM EST Patient Name: KATHYA HOOPER Fluoroscopy ACCESSION EXAM DATE/TIME PROCEDURE ORDERING PROVIDER [id number] 06/26/2020 20:20 EST RF Intro Long GI Tube w/ [id number] -GOMBASH, ABELARDO Fluoro CPT code 23080 Reason For Exam (RF Intro Long GI [...] Fluoroscopy ACCESSION EXAM DATE/TIME PROCEDURE ORDERING PROVIDER [id number] 06/26/2020 20:20 EST RF Intro Long GI Tube w/ [id number] -ABELARDO RIOS CPT code 45008 Reason For Exam (RF Intro Long GI [...] Transcribed Date and Time: 06/26/2020 9:16 Normal [facility] Clinical Summary: HMSPatient IDon 05-22-[address] [facility] Work Phone: Office Visit: New - visi t with practice, Rm: 2on 05-22-2019 NEGATED: Highlighted rowCT scan history of the right lower extremity on 05/16/2019 at [facility] Work Phone: NEGATED: Highlighted rowTobacco smoking status NHIS current someday smoker [facility] Work Phone: NEGATED: Highlighted rowxray history of the pelvis with hip on 05/11/2019 at [facility] , of the pelvis on 05/13/2019 at [facility] Work Phone: CT LOWER EXTREMITY RIGHT WO CONTRASTOrdered By: Elizabeth Moura on 05-16-2019 Patient Name: KATHYA HOOPER ---CT--- Exam Date/Time 05/16/2019 21:10:[address] Low Ext w/o Contrast Right Ordering Physician 58ELIZABETH LU Accession Number [id number] CPT4 Codes 72856 () Reason For Exam right hip pain, [...] RISA Transcribed Date and Time: 05/16/2019 9:24 [facility] Work Phone: [facility] - 05/16/2019 9:24 PM EST Patient Name: KATHYA HOOPER ---CT--- Exam Date/Time 05/16/2019 21:10:[address] Low Ext w/o Contrast Right Ordering Physician ELIZABETH BARKER Accession Number [id number] CPT4 Codes 97405 () Reason For Exam right hip pain, [...] RISA Transcribed Date and Time: 05/16/2019 9:24 [facility] Work Phone: Differential,Body Fluidson 0 09-27-2018 Other Cells 46 % Normal [facility] Comment on above: Result Comment: Bloo dy specimen with reactive mesothelial cells and chronic inflammation with occasional hemophagocytosis. 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 [place] [address] CULTURE AND STAIN - FLUIDon 09-25-2018 CULTURE AND STAIN - FLUID CULTURE & STAIN - FLUID --> Status: F No growth at 5 days. STAIN GRAM --> Status: F Moderate polymorphonuclear cells/lpf. Moderate mononuclear cells/lpf No organisms seen. Cytocentrifugation performed. Moderate mononuclear cells/lpf No organisms seen. Cytocentrifugation performed. Normal [facility] Comment on above: Performed By: #### H EMDF, PT, BMP3M, PHOS3, MG3, CK3 #### [place] [address] [address] [place], [place] #### VD25H #### [facility] [address] [place] [address] Cell Count,Body Fluidon - Nucleated Cells 2391 {cells}/uL Normal [facility] Comment on above: Performed By: #### H EMDF, PT, BMP3M, PHOS3, MG3, CK3 #### [facility] [address], [place] #### VD25H #### [facility] [address] [place] [address] RBC Count [place] [address] {RBC}/uL Normal [facility] Comment on above: Performed By: #### H EMDF, PT, BMP3M, PHOS3, MG3, CK3 #### [facility] [address], [place] #### VD25H #### [facility] [address] [place] [address] Fluid Type Thoracentesis Normal [facility] Comment on above: Performed By: #### H EMDF, PT, BMP3M, PHOS3, MG3, CK3 #### [place] [address] [address] [place], [place] #### VD25H #### [facility] [address] [place] [address] Differential,Body Fluidson 0 09-25-2018 Lymphocytes/100 WBC (Bld) 28 % Normal [facility] Comment on above: Performed By: #### H EMDF, PT, BMP3M, PHOS3, MG3, CK3 #### [facility] [address] [place], [place] #### VD25H #### [facility] [address] [place] [address] Monocytes/100 WBC (Bld) 1 % Normal [facility] Comment on above: Performed By: #### H EMDF, PT, BMP3M, PHOS3, MG3, CK3 #### [place] [address] [address] [place], [place] #### VD25H #### [facility] [address] [place] [address] Neutrophils/100 WBC (Bld) 25 % Normal [facility] Comment on above: Performed By: #### H EMDF, PT, BMP3M, PHOS3, MG3, CK3 #### [place] [address] [address] [place], [place] #### VD25H #### [facility] [address] [place] [address] Cells Counted for Diff 100 Normal [facility] Comment on above: Performed By: #### H EMDF, PT, BMP3M, PHOS3, MG3, CK3 #### [place] [address] [address] [place], [place] #### VD25H #### [facility] [address] [place] [address] LDH, Body Fluidon 09-25-2018 LDH, Body Fluid 174 U/L Normal No Range [facility] Comment on above: Performed By: #### H EMDF, PT, BMP3M, PHOS3, MG3, CK3 #### [place] [address] [address] [place], [place] #### VD25H #### [facility] [address] [place] [address] Protein, Total Body Fluidon 09-25-2018 Protein,Total-Body Fld 3.4 g/dL Normal No Range [facility] Comment on above: Performed By: #### H EMDF, PT, BMP3M, PHOS3, MG3, CK3 #### [facility] [address] [facility] [place] [address] #### VD25H #### [facility] [address] [place] [address] US Thora-Aspir Pleura w/ Evelin geon 09-25-2018 US Thora-Aspir Pleura w/ Image Patient Name: KATHYA HOOPER Ultrasound Exam Date/Time 09/25/2018 13:23:41 EDT Exam US Thora-Aspir Pleura w/ Image Ordering Physician SALO DAVIS Accession Number [id number] CPT4 Codes 63873 () Reason For Exam pleural effusion Report [...] Transcribed Date and Time: 09/25/2018 3:07 Normal [facility] CULTURE MYCOBACTERIAon 09-03 CULTURE MYCOBACTERIA CULTURE MYCOBACTERI A --> Status: F No acid-fast bacilli isolated after 6 weeks incubation. [facility] Comment on above: Performed By: #### H EMDF, PT, BMP3M, PHOS3, MG3, CK3 #### [employer] [facility] [address] [place] [address] #### VD25H #### [facility] [employer] [facility] [address] [place] [address] CULTURE URINEon 08-23-2018 CULTURE URINE CULTURE URINE --> Status: F No growth (<1,000 CFU/ml). Normal [facility] [employer] [facility] Comment on above: Order Comment: Speci men Source Comment:Urine, clean catch Performed By: #### H EMDF, PT, BMP3M, PHOS3, MG3, CK3 #### [facility] [employer] [facility] [address] [place] [address] #### VD25H #### [facility] [employer] [facility] [address] [place] [address] CR Chest Portableon 08-23-19 19 CR Chest Portable Patient Name: KATHYA HOOPER Diagnostic Radiology Exam Date/Time 08/22/2018 07:07:07 EDT Exam CR Chest Portable Ordering Physician [id number] KHANNA Accession Number [id number] CPT4 Codes 36951 () Reason For Exam dyspnea Report Portable [...] Transcribed Date and Time: 08/22/2018 7:31 Normal [facility] Glucose,Bedsideon 08-22-2018 Glucose mass conc 127 mg/dL High 70-100 [facility] Comment on above: Result Comment: Test performed by glucose meter. Results may be 10%-15% lower than serum/plasma values. (CLIA ID [id number]) Performed By: #### H EMDF, PT, BMP3M, PHOS3, MG3, CK3 #### [facility] [address], [place] #### VD25H #### [facility] [address] [place] [address] Urinalysis,Macroon 9 Appearance Nom (U) clear Normal Clear [facility] Comment on above: Performed By: #### H EMDF, PT, BMP3M, PHOS3, MG3, CK3 #### [facility] [address] [place], [place] #### VD25H #### [facility] [address] [facility] [place] [address] Bilirubin,Ur Negative Normal Negative [facility] Comment on above: Performed By: #### H EMDF, PT, BMP3M, PHOS3, MG3, CK3 #### [facility] [address] [place], [place] #### VD25H #### [facility] [address] [place] [address] Color Nom (U) dk.yel Normal Lt. Yellow [facility] Comment on above: Performed By: #### H EMDF, PT, BMP3M, PHOS3, MG3, CK3 #### [facility] [address], [place] #### VD25H #### [facility] [address] [place] [address] Glucose Ql (U) NORM Normal Negative [facility] Comment on above: Performed By: #### H EMDF, PT, BMP3M, PHOS3, MG3, CK3 #### [facility] [address] [facility], [place] #### VD25H #### [facility] [address] [place] [address] Ketone,Urine Negative Normal Negative [facility] Comment on above: Performed By: #### H EMDF, PT, BMP3M, PHOS3, MG3, CK3 #### [facility] [address] [facility], [place] #### VD25H #### [facility] [address] [place] [address] Nitrite Ql (U) Negative Normal Negative [facility] Comment on above: Performed By: #### H EMDF, PT, BMP3M, PHOS3, MG3, CK3 #### [place] [address] [address] [facility], [place] #### VD25H #### [facility] [address] [place] [address] Occult Blood,Ur Negative Normal Negative [facility] Comment on above: Performed By: #### H EMDF, PT, BMP3M, PHOS3, MG3, CK3 #### [place] [address] [address] [facility], [place] #### VD25H #### [facility] [address] [place] [address] pH (U) 8.0 Normal 5.0-8.0 [facility] Comment on above: Performed By: #### H EMDF, PT, BMP3M, PHOS3, MG3, CK3 #### [place] [address] [address] [facility], [place] #### VD25H #### [facility] [address] [place] [address] Protein mass conc (U) Negative Normal Negative [facility] Comment on above: Performed By: #### H EMDF, PT, BMP3M, PHOS3, MG3, CK3 #### [facility] [address] [facility], [place] #### VD25H #### [facility] [address] [place] [address] Specific [place],Urine 1.015 Normal 1.005-1.030 [facility] Comment on above: Performed By: #### H EMDF, PT, BMP3M, PHOS3, MG3, CK3 #### [place] [address] [address] [place], [place] #### VD25H #### [facility] [address] [place] [address] Urobilinogen Qn (U) 1 mg/dL Normal 0-1 [facility] Comment on above: Performed By: #### H EMDF, PT, BMP3M, PHOS3, MG3, CK3 #### [address] [facility], [place] #### VD25H #### [facility] [address] [place] [address] WBC #/vol (Bld) Negative Normal Negative [facility] Comment on above: Performed By: #### H EMDF, PT, BMP3M, PHOS3, MG3, CK3 #### [address], [place] #### VD25H #### [facility] [address] [place] [address] Basic Metabolic Panelon 04-2 Calcium mass conc 7.8 mg/dL Low 8.4-10.4 [facility] Comment on above: Performed By: #### H EMDF, PT, BMP3M, PHOS3, MG3, CK3 #### [address] [facility], [place] #### VD25H #### [facility] [address] [place] [address] Glucose mass conc 102 mg/dL High 70-100 [facility] Comment on above: Performed By: #### H EMDF, PT, BMP3M, PHOS3, MG3, CK3 #### [place] [address] [address] [facility], [place] #### VD25H #### [facility] [address] [place] [address] Anion gap molar conc 0 Normal [facility] Comment on above: Performed By: #### H EMDF, PT, BMP3M, PHOS3, MG3, CK3 #### [address] [address] #### VD25H #### [facility] [address] [place] [address] CO2 molar conc 37 mmol/L High 22-30 [facility] Comment on above: Performed By: #### H EMDF, PT, BMP3M, PHOS3, MG3, CK3 #### [address] [address] #### VD25H #### [facility] [address] [place] [address] Creatinine mass conc 0.46 mg/dL Low 0.52-1.25 [facility] Comment on above: Performed By: #### H EMDF, PT, BMP3M, PHOS3, MG3, CK3 #### [address] [address] #### VD25H #### [facility] [address] [place] [address] GFR/1.73 sq M predicted among blacks MDRD vol rate/area (S/P/Bld) mL/min/{1.73_m2} Normal >60 [facility] Comment on above: Performed By: #### H EMDF, PT, BMP3M, PHOS3, MG3, CK3 #### [address] [address] #### VD25H #### [facility] [address] [place] [address] GFR/1.73 sq M predicted among non-blacks MDRD vol rate/area (S/P/Bld) mL/min/{1.73_m2} Normal >60 [facility] Comment on above: Result Comment: Sour ce- MDRD equation with creatinine calibration to IDMS(NKDEP) eGFR not recommended for drug dose adjustment Performed By: #### H EMDF, PT, BMP3M, PHOS3, MG3, CK3 #### [place] [address] [address] [place], [place] #### VD25H #### [facility] [address] [place] [address] Urea nitrogen mass conc 7 mg/dL Normal 7-20 [facility] Comment on above: Performed By: #### H EMDF, PT, BMP3M, PHOS3, MG3, CK3 #### [place] [address] [address] [place], [place] #### VD25H #### [facility] [address] [place] [address] Potassium molar conc 3.7 mmol/L Normal 3.5-5.1 [facility] Comment on above: Performed By: #### H EMDF, PT, BMP3M, PHOS3, MG3, CK3 #### [place] [address] [address] [place], [place] #### VD25H #### [facility] [address] [place] [address] Chloride molar conc 101 mmol/L Normal 98-107 [facility] Comment on above: Performed By: #### H EMDF, PT, BMP3M, PHOS3, MG3, CK3 #### [place] [address] [address] [place], [place] #### VD25H #### [facility] [address] [place] [address] Sodium molar conc 138 mmol/L Normal 135-145 [facility] Comment on above: Performed By: #### H EMDF, PT, BMP3M, PHOS3, MG3, CK3 #### [place] [address] [address] [facility], [place] #### VD25H #### [facility] [address] [place] [address] CR Chest Portableon 08-22-19 19 CR Chest Portable Patient Name: KATHYA HOOPER Diagnostic Radiology Exam Date/Time 08/21/2018 09:46:47 EDT Exam CR Chest Portable Ordering Physician MALLORY STAPLES Accession Number [id number] CPT4 Codes 45172 () Reason For Exam edema Report PORTABLE [...] Transcribed Date and Time: 08/21/2018 11:14 Normal [facility] CULTURE ANAEROBEon 9 CULTURE ANAEROBE CULTURE ANAEROBE --> Status: F No growth of anaerobes at 5 days. Normal [facility] Comment on above: Order Comment: or co llected Performed By: #### H EMDF, PT, BMP3M, PHOS3, MG3, CK3 #### [facility] [address] [place] [address] #### VD25H #### [facility] [address] [place] [address] Glucose,Bedsideon 08-21-2018 Glucose mass conc 124 mg/dL High 70-100 [facility] Comment on above: Result Comment: Test performed by glucose meter. Results may be 10%-15% lower than serum/plasma values. (CLIA ID [id number]) Performed By: #### H EMDF, PT, BMP3M, PHOS3, MG3, CK3 #### [facility] [address] [place] [address] #### VD25H #### [facility] [address] [place] [address] Glucose mass conc 135 mg/dL High 70-100 [facility] Comment on above: Result Comment: Test performed by glucose meter. Results may be 10%-15% lower than serum/plasma values. (CLIA ID [id number]) Performed By: #### H EMDF, PT, BMP3M, PHOS3, MG3, CK3 #### [address] [place] [address] [place] [address] #### VD25H #### [facility] [address] [place] [address] Glucose mass conc 131 mg/dL High 70-100 [facility] Comment on above: Result Comment: Test performed by glucose meter. Results may be 10%-15% lower than serum/plasma values. (CLIA ID [id number]) Performed By: #### H EMDF, PT, BMP3M, PHOS3, MG3, CK3 #### [address] [address] #### VD25H #### [facility] [address] [place] [address] Glucose mass conc 112 mg/dL High 70-100 [facility] Comment on above: Result Comment: Test performed by glucose meter. Results may be 10%-15% lower than serum/plasma values. (CLIA ID [id number]) Performed By: #### H EMDF, PT, BMP3M, PHOS3, MG3, CK3 #### [address] [place] [address] #### VD25H #### [facility] [address] [place] [address] Basic Metabolic Panelon 04-2 Anion gap molar conc 4 Normal [facility] Comment on above: Performed By: #### H EMDF, PT, BMP3M, PHOS3, MG3, CK3 #### [address], [place] #### VD25H #### [facility] [address] [place] [address] Calcium mass conc 7.6 mg/dL Low 8.4-10.4 [facility] Comment on above: Performed By: #### H EMDF, PT, BMP3M, PHOS3, MG3, CK3 #### [place] [address] [address] [facility], [place] #### VD25H #### [facility] [address] [place] [address] CO2 molar conc 36 mmol/L High 22-30 [facility] Comment on above: Performed By: #### H EMDF, PT, BMP3M, PHOS3, MG3, CK3 #### [place] [address] [address] [facility], [place] #### VD25H #### [facility] [address] [place] [address] Glucose mass conc 121 mg/dL High 70-100 [facility] Comment on above: Performed By: #### H EMDF, PT, BMP3M, PHOS3, MG3, CK3 #### [place] [address] [address] [facility], [place] #### VD25H #### [facility] [address] [place] [address] Urea nitrogen mass conc 9 mg/dL Normal 7-20 [facility] Comment on above: Performed By: #### H EMDF, PT, BMP3M, PHOS3, MG3, CK3 #### [place] [address] [address] [facility], [place] #### VD25H #### [facility] [address] [place] [address] Creatinine mass conc 0.51 mg/dL Low 0.52-1.25 [facility] Comment on above: Performed By: #### H EMDF, PT, BMP3M, PHOS3, MG3, CK3 #### [place] [address] [address] [facility], [place] #### VD25H #### [facility] [address] [place] [address] GFR/1.73 sq M predicted among blacks MDRD vol rate/area (S/P/Bld) mL/min/{1.73_m2} Normal >60 [facility] Comment on above: Performed By: #### H EMDF, PT, BMP3M, PHOS3, MG3, CK3 #### [address] [place] [address] #### VD25H #### [facility] [address] [place] [address] GFR/1.73 sq M predicted among non-blacks MDRD vol rate/area (S/P/Bld) mL/min/{1.73_m2} Normal >60 [facility] Comment on above: Result Comment: Sour ce- MDRD equation with creatinine calibration to IDMS(NKDEP) eGFR not recommended for drug dose adjustment Performed By: #### H EMDF, PT, BMP3M, PHOS3, MG3, CK3 #### [address] #### VD25H #### [facility] [address] [place] [address] Chloride molar conc 100 mmol/L Normal 98-107 [facility] Comment on above: Performed By: #### H EMDF, PT, BMP3M, PHOS3, MG3, CK3 #### [address] #### VD25H #### [facility] [address] [place] [address] Potassium molar conc 3.3 mmol/L Low 3.5-5.1 [facility] Comment on above: Performed By: #### H EMDF, PT, BMP3M, PHOS3, MG3, CK3 #### [address] #### VD25H #### [facility] [address] [place] [address] Sodium molar conc 140 mmol/L Normal 135-145 [facility] Comment on above: Performed By: #### H EMDF, PT, BMP3M, PHOS3, MG3, CK3 #### [facility] [address], [place] #### VD25H #### [facility] [address] [place] [address] Glucose,Bedsideon 08-20-2018 Glucose mass conc 121 mg/dL High 70-100 [facility] Comment on above: Result Comment: Test performed by glucose meter. Results may be 10%-15% lower than serum/plasma values. (CLIA ID [id number]) Performed By: #### H EMDF, PT, BMP3M, PHOS3, MG3, CK3 #### [address] #### VD25H #### [facility] [address] [facility] [place] [address] Glucose mass conc 127 mg/dL High 70-100 [facility] Comment on above: Result Comment: Test performed by glucose meter. Results may be 10%-15% lower than serum/plasma values. (CLIA ID [id number]) Performed By: #### H EMDF, PT, BMP3M, PHOS3, MG3, CK3 #### [address] #### VD25H #### [facility] [address] [place] [address] Hep A Abs, Totalon 9 Hep A Abs, Total Negative Normal Negative [facility] Comment on above: Result Comment: Perf ormed by [employer], [address] [place] [id number] [email or web address], Moo Lay MD - Lab. Director Performed By: #### H EMDF, PT, BMP3M, PHOS3, MG3, CK3 #### [facility] [address], [place] #### VD25H #### [facility] [address] [place] [address] Basic Metabolic Panelon 04-2 Anion gap molar conc 1 Normal [facility] Comment on above: Performed By: #### H EMDF, PT, BMP3M, PHOS3, MG3, CK3 #### [facility] [address] [facility] [place] #### VD25H #### [facility] [address] [place] [address] Calcium mass conc 7.6 mg/dL Low 8.4-10.4 [facility] Comment on above: Performed By: #### H EMDF, PT, BMP3M, PHOS3, MG3, CK3 #### [address] #### VD25H #### [facility] [address] [place] [address] CO2 molar conc 33 mmol/L High 22-30 [facility] Comment on above: Performed By: #### H EMDF, PT, BMP3M, PHOS3, MG3, CK3 #### [place] [address] [address] [facility], [place] #### VD25H #### [facility] [address] [place] [address] Glucose mass conc 139 mg/dL High 70-100 [facility] Comment on above: Performed By: #### H EMDF, PT, BMP3M, PHOS3, MG3, CK3 #### [place] [address] [address] [place], [place] #### VD25H #### [facility] [address] [place] [address] Urea nitrogen mass conc 10 mg/dL Normal 7-20 [facility] Comment on above: Performed By: #### H EMDF, PT, BMP3M, PHOS3, MG3, CK3 #### [place] [address] [facility] [place] [place] #### VD25H #### [facility] [address] [place] [address] Creatinine mass conc 0.57 mg/dL Normal 0.52-1.25 [facility] Comment on above: Performed By: #### H EMDF, PT, BMP3M, PHOS3, MG3, CK3 #### [address] #### VD25H #### [facility] [address] [place] [address] GFR/1.73 sq M predicted among blacks MDRD vol rate/area (S/P/Bld) mL/min/{1.73_m2} Normal >60 [facility] Comment on above: Performed By: #### H EMDF, PT, BMP3M, PHOS3, MG3, CK3 #### [address] #### VD25H #### [facility] [address] [facility] [place] [address] GFR/1.73 sq M predicted among non-blacks MDRD vol rate/area (S/P/Bld) mL/min/{1.73_m2} Normal >60 [facility] Comment on above: Result Comment: Sour ce- MDRD equation with creatinine calibration to IDMS(NKDEP) eGFR not recommended for drug dose adjustment Performed By: #### H EMDF, PT, BMP3M, PHOS3, MG3, CK3 #### [address] #### VD25H #### [facility] [address] [place] [address] Potassium molar conc 3.4 mmol/L Low 3.5-5.1 [facility] Comment on above: Performed By: #### H EMDF, PT, BMP3M, PHOS3, MG3, CK3 #### [address] #### VD25H #### [facility] [address] [place] [address] Chloride molar conc 104 mmol/L Normal 98-107 [facility] Comment on above: Performed By: #### H EMDF, PT, BMP3M, PHOS3, MG3, CK3 #### [employer] [address] [place], [place] #### VD25H #### [employer] [facility] [address] [place] [address] Sodium molar conc 138 mmol/L Normal 135-145 [facility] [employer] [facility] System Comment on above: Performed By: #### H EMDF, PT, BMP3M, PHOS3, MG3, CK3 #### [facility] [employer] [address] [place], [place] #### VD25H #### [employer] [address] [place] [address] CULT./ST. BACTERIAon 019 CULT./ST. BACTERIA STAIN GRAM [...] 0.12 S Vancomycin(CHRISTI) = 1 S Normal [facility] Comment on above: Order Comment: or co llected Performed By: #### H EMDF, PT, BMP3M, PHOS3, MG3, CK3 #### [facility] [employer] [address] [place] [address] #### VD25H #### [employer] [facility] [address] [place] [address] Basic Metabolic Panelon 04-2 Calcium mass conc 7.8 mg/dL Low 8.4-10.4 [facility] [employer] [facility] Comment on above: Performed By: #### H EMDF, PT, BMP3M, PHOS3, MG3, CK3 #### [facility] [employer] [address] #### VD25H #### [facility] [employer] [facility] [address] [place] [address] Glucose mass conc 104 mg/dL High 70-100 [facility] [employer] [facility] Comment on above: Performed By: #### H EMDF, PT, BMP3M, PHOS3, MG3, CK3 #### [employer] [address] [place] [address] #### VD25H #### [employer] [address] [place] [address] Urea nitrogen mass conc 12 mg/dL Normal 7-20 [facility] Comment on above: Performed By: #### H EMDF, PT, BMP3M, PHOS3, MG3, CK3 #### [employer] [place] [phone] #### VD25H #### [facility] [address] [place] [address] Anion gap molar conc 5 Normal [facility] Comment on above: Performed By: #### H EMDF, PT, BMP3M, PHOS3, MG3, CK3 #### [place] [address] [address] [place], [place] #### VD25H #### [facility] [address] [place] [address] CO2 molar conc 26 mmol/L Normal 22-30 [facility] Comment on above: Performed By: #### H EMDF, PT, BMP3M, PHOS3, MG3, CK3 #### [place] [address] [address] [place], [place] #### VD25H #### [place] [address] [place] [address] Creatinine mass conc 0.61 mg/dL Normal 0.52-1.25 [facility] Comment on above: Performed By: #### H EMDF, PT, BMP3M, PHOS3, MG3, CK3 #### [address] #### VD25H #### [facility] [address] [place] [address] GFR/1.73 sq M predicted among blacks MDRD vol rate/area (S/P/Bld) mL/min/{1.73_m2} Normal >60 [facility] Comment on above: Performed By: #### H EMDF, PT, BMP3M, PHOS3, MG3, CK3 #### [place] [address] [address] [place], [place] #### VD25H #### [place] [address] [place] [address] GFR/1.73 sq M predicted among non-blacks MDRD vol rate/area (S/P/Bld) mL/min/{1.73_m2} Normal >60 [facility] Comment on above: Result Comment: Sour ce- MDRD equation with creatinine calibration to IDMS(NKDEP) eGFR not recommended for drug dose adjustment Performed By: #### H EMDF, PT, BMP3M, PHOS3, MG3, CK3 #### [facility] [address] [place], [place] #### VD25H #### [facility] [address] [place] [address] Chloride molar conc 107 mmol/L Normal 98-107 [facility] Comment on above: Performed By: #### H EMDF, PT, BMP3M, PHOS3, MG3, CK3 #### [place] [address] [address] [facility], [place] #### VD25H #### [facility] [address] [place] [address] Potassium molar conc 3.4 mmol/L Low 3.5-5.1 [facility] Comment on above: Performed By: #### H EMDF, PT, BMP3M, PHOS3, MG3, CK3 #### [place] [address] [address] [facility], [place] #### VD25H #### [facility] [address] [place] [address] Sodium molar conc 138 mmol/L Normal 135-145 [facility] Comment on above: Performed By: #### H EMDF, PT, BMP3M, PHOS3, MG3, CK3 #### [place] [address] [address] [facility], [place] #### VD25H #### [facility] [address] [place] [address] Glucose,Bedsideon 08-18-2018 Glucose mass conc 113 mg/dL High 70-100 [facility] Comment on above: Result Comment: Test performed by glucose meter. Results may be 10%-15% lower than serum/plasma values. (CLIA ID [id number]) Performed By: #### H EMDF, PT, BMP3M, PHOS3, MG3, CK3 #### [place] [address] [address] [facility], [place] #### VD25H #### [facility] [address] [place] [address] Hemogram w/ Autodiffon 08-18 Erythrocyte distribution width Ratio (RBC) 14.4 % Normal 11.5-14.5 [facility] Comment on above: Performed By: #### H EMDF, PT, BMP3M, PHOS3, MG3, CK3 #### [address] #### VD25H #### [facility] [address] [place] [address] Hematocrit Volume Fraction (Bld) 29.3 % Low 40.0-52.0 [facility] Comment on above: Performed By: #### H EMDF, PT, BMP3M, PHOS3, MG3, CK3 #### [address] #### VD25H #### [place] [address] [place] [address] Hemoglobin mass conc (Bld) 9.8 g/dL Low 13.0-18.0 [facility] Comment on above: Performed By: #### H EMDF, PT, BMP3M, PHOS3, MG3, CK3 #### [address] #### VD25H #### [place] [address] [place] [address] MCH Entitic mass (RBC) 28.0 pg Normal 26.0-34.0 [facility] Comment on above: Performed By: #### H EMDF, PT, BMP3M, PHOS3, MG3, CK3 #### [address] #### VD25H #### [place] [address] [place] [address] MCHC mass conc (RBC) 33.4 % Normal 32.0-36.0 [facility] Comment on above: Performed By: #### H EMDF, PT, BMP3M, PHOS3, MG3, CK3 #### [address] [place] #### VD25H #### [facility] [address] [place] [address] MCV Entitic volume (RBC) 84.1 fL Normal 80.0-98.0 [facility] Comment on above: Performed By: #### H EMDF, PT, BMP3M, PHOS3, MG3, CK3 #### [address] #### VD25H #### [facility] [address] [place] [address] Platelet mean volume Entitic volume (Bld) 7.9 fL Normal 7.4-10.4 [facility] Comment on above: Performed By: #### H EMDF, PT, BMP3M, PHOS3, MG3, CK3 #### [address] #### VD25H #### [place] [address] [place] [address] Platelets #/vol (Bld) 301 10*3/uL Normal 140-440 [facility] Comment on above: Performed By: #### H EMDF, PT, BMP3M, PHOS3, MG3, CK3 #### [address] #### VD25H #### [place] [address] [place] [address] RBC #/vol (Bld) 3.49 10*6/uL Low 4.40-5.90 [facility] Comment on above: Performed By: #### H EMDF, PT, BMP3M, PHOS3, MG3, CK3 #### [address] #### VD25H #### [facility] [address] [place] [address] WBC #/vol (Bld) 8.3 10*3/uL Normal 3.6-10.7 [facility] Comment on above: Performed By: #### H EMDF, PT, BMP3M, PHOS3, MG3, CK3 #### [address] [place], [place] #### VD25H #### [facility] [address] [place] [address] Magnesiumon 08-18-2018 Magnesium mass conc 2.0 mg/dL Normal 1.6-2.3 [facility] Comment on above: Performed By: #### H EMDF, PT, BMP3M, PHOS3, MG3, CK3 #### [address] [place], [place] #### VD25H #### [facility] [address] [place] [address] Manual Diffon 08-18-2018 Abs Neutrophile Cnt 5.1 10*3/uL Normal 2.2-8.2 [facility] Comment on above: Performed By: #### H EMDF, PT, BMP3M, PHOS3, MG3, CK3 #### [address] #### VD25H #### [facility] [address] [place] [address] Bands 3 % Normal 0-3 [facility] Comment on above: Performed By: #### H EMDF, PT, BMP3M, PHOS3, MG3, CK3 #### [address] #### VD25H #### [facility] [address] [place] [address] Eosinophils #/vol (Bld) 0.2 10*3/uL Normal 0.0-0.5 [facility] Comment on above: Performed By: #### H EMDF, PT, BMP3M, PHOS3, MG3, CK3 #### [address] #### VD25H #### [facility] [address] [place] [address] Eosinophils/100 WBC (Bld) 2 % Normal 1-6 [facility] Comment on above: Performed By: #### H EMDF, PT, BMP3M, PHOS3, MG3, CK3 #### [facility] [address] [place], [place] #### VD25H #### [facility] [address] [place] [address] Lymphocytes #/vol (Bld) 2.1 10*3/uL Normal 1.1-4.5 [facility] Comment on above: Performed By: #### H EMDF, PT, BMP3M, PHOS3, MG3, CK3 #### [place] [address] [address] [place], [place] #### VD25H #### [facility] [address] [place] [address] Lymphocytes/100 WBC (Bld) 25 % Normal 20-40 [facility] Comment on above: Performed By: #### H EMDF, PT, BMP3M, PHOS3, MG3, CK3 #### [place] [address] [address] [place], [place] #### VD25H #### [facility] [address] [place] [address] Metamyelocytes 1 % Abnormal <1 [facility] Comment on above: Performed By: #### H EMDF, PT, BMP3M, PHOS3, MG3, CK3 #### [place] [address] [address] [place], [place] #### VD25H #### [facility] [address] [place] [address] Monocytes #/vol (Bld) 0.6 10*3/uL Normal 0.2-1.1 [facility] Comment on above: Performed By: #### H EMDF, PT, BMP3M, PHOS3, MG3, CK3 #### [place] [address] [address] [place], [place] #### VD25H #### [facility] [address] [place] [address] Monocytes/100 WBC (Bld) 7 % Normal 2-10 [facility] Comment on above: Performed By: #### H EMDF, PT, BMP3M, PHOS3, MG3, CK3 #### [place] [address] [address] [place], [place] #### VD25H #### [facility] [address] [place] [address] Myelocytes 1 % Abnormal <1 [facility] Comment on above: Performed By: #### H EMDF, PT, BMP3M, PHOS3, MG3, CK3 #### [place] [address] [address] [place], [place] #### VD25H #### [facility] [address] [place] [address] Protein mass conc 2 % Abnormal <1 [facility] Comment on above: Performed By: #### H EMDF, PT, BMP3M, PHOS3, MG3, CK3 #### [address] #### VD25H #### [facility] [address] [place] [address] RBC morphology finding Nom (Bld) See Prev Normal [facility] Comment on above: Performed By: #### H EMDF, PT, BMP3M, PHOS3, MG3, CK3 #### [address] [place], [place] #### VD25H #### [facility] [address] [place] [address] Seg Neutrophils 59 % Normal 40-80 [facility] Comment on above: Performed By: #### H EMDF, PT, BMP3M, PHOS3, MG3, CK3 #### [place] [address] [address] [place], [place] #### VD25H #### [facility] [address] [place] [address] Abs Baso Cnt 0.0 10*3/uL Normal 0.0-0.2 [facility] Comment on above: Performed By: #### H EMDF, PT, BMP3M, PHOS3, MG3, CK3 #### [place] [address] [address] [place], [place] #### VD25H #### [facility] [address] [place] [address] Basophils/100 WBC (Bld) 0 % Normal 0-2 [facility] Comment on above: Performed By: #### H EMDF, PT, BMP3M, PHOS3, MG3, CK3 #### [place] [address] [address] [place], [place] #### VD25H #### [facility] [address] [place] [address] Cells counted 100 Normal [facility] Comment on above: Performed By: #### H EMDF, PT, BMP3M, PHOS3, MG3, CK3 #### [address] [place], [place] #### VD25H #### [facility] [address] [place] [address] Phosphoruson 08-18-2018 Phosphate mass conc 4.6 mg/dL High 2.5-4.5 [facility] Comment on above: Performed By: #### H EMDF, PT, BMP3M, PHOS3, MG3, CK3 #### [place] [address] [address] [place], [place] #### VD25H #### [facility] [address] [place] [address] Basic Metabolic Panelon 07-30 Calcium mass conc 7.7 mg/dL Low 8.4-10.4 [facility] Comment on above: Performed By: #### H EMDF, PT, BMP3M, PHOS3, MG3, CK3 #### [place] [address] [address] [place], [place] #### VD25H #### [facility] [address] [place] [address] Anion gap molar conc 7 Normal [facility] Comment on above: Performed By: #### H EMDF, PT, BMP3M, PHOS3, MG3, CK3 #### [place] [address] [address] [place], [place] #### VD25H #### [facility] [address] [place] [address] CO2 molar conc 25 mmol/L Normal 22-30 [facility] Comment on above: Performed By: #### H EMDF, PT, BMP3M, PHOS3, MG3, CK3 #### [address] #### VD25H #### [facility] [address] [place] [address] Creatinine mass conc 0.59 mg/dL Normal 0.52-1.25 [facility] Comment on above: Performed By: #### H EMDF, PT, BMP3M, PHOS3, MG3, CK3 #### [address] #### VD25H #### [place] [address] [place] [address] GFR/1.73 sq M predicted among blacks MDRD vol rate/area (S/P/Bld) mL/min/{1.73_m2} Normal >60 [facility] Comment on above: Performed By: #### H EMDF, PT, BMP3M, PHOS3, MG3, CK3 #### [address] #### VD25H #### [facility] [address] [place] [address] GFR/1.73 sq M predicted among non-blacks MDRD vol rate/area (S/P/Bld) mL/min/{1.73_m2} Normal >60 [facility] Comment on above: Result Comment: Sour ce- MDRD equation with creatinine calibration to IDMS(NKDEP) eGFR not recommended for drug dose adjustment Performed By: #### H EMDF, PT, BMP3M, PHOS3, MG3, CK3 #### [address] #### VD25H #### [place] [address] [place] [address] Glucose mass conc 116 mg/dL High 70-100 [facility] Comment on above: Performed By: #### H EMDF, PT, BMP3M, PHOS3, MG3, CK3 #### [facility] [address] [place], [place] #### VD25H #### [facility] [address] [place] [address] Urea nitrogen mass conc 12 mg/dL Normal 7-20 [facility] Comment on above: Performed By: #### H EMDF, PT, BMP3M, PHOS3, MG3, CK3 #### [place] [address] [address] [place], [place] #### VD25H #### [facility] [address] [place] [address] Potassium molar conc 3.2 mmol/L Low 3.5-5.1 [facility] Comment on above: Performed By: #### H EMDF, PT, BMP3M, PHOS3, MG3, CK3 #### [place] [address] [address] [facility], [place] #### VD25H #### [facility] [address] [place] [address] Sodium molar conc 138 mmol/L Normal 135-145 [facility] Comment on above: Performed By: #### H EMDF, PT, BMP3M, PHOS3, MG3, CK3 #### [place] [address] [address] [place], [place] #### VD25H #### [facility] [address] [place] [address] Chloride molar conc 106 mmol/L Normal 98-107 [facility] Comment on above: Performed By: #### H EMDF, PT, BMP3M, PHOS3, MG3, CK3 #### [place] [address] [address] [facility], [place] #### VD25H #### [facility] [address] [place] [address] CR Chest Portableon 08-18-19 19 CR Chest Portable Patient Name: KATHYA HOOPER Diagnostic Radiology Exam Date/Time 08/17/2018 17:54:46 EDT Exam CR Chest Portable Ordering Physician SALO DAVIS Accession Number [id number] CPT4 Codes 75051 () Reason For Exam line placement Report [...] LAURA Transcribed Date and Time: 08/17/2018 6:05 [facility] CR Chest Portable Patient Name: KATHYA HOOPER Diagnostic Radiology Exam Date/Time 08/17/2018 06:11:03 EDT Exam CR Chest Portable Ordering Physician ETIENNE VELÁSQUEZ TIMOTHY P Accession Number [id number] CPT4 Codes 61411 () Reason For Exam follow left pleural [...] Transcribed Date and Time: 08/17/2018 7:16 Normal [facility] Ferritinon 08-17-2018 Ferritin mass conc 1100 ng/mL High 18-464 [facility] Comment on above: Performed By: #### H EMDF, PT, BMP3M, PHOS3, MG3, CK3 #### [facility] [address] [place], [place] #### VD25H #### [facility] [address] [place] [address] Folateon 08-17-2018 Folate 15.1 ng/mL Normal 2.8-20.0 [facility] Comment on above: Performed By: #### H EMDF, PT, BMP3M, PHOS3, MG3, CK3 #### [facility] [address] [place], [place] #### VD25H #### [facility] [address] [place] [address] Glucose,Bedsideon 08-17-2018 Glucose mass conc 133 mg/dL High 70-100 [facility] Comment on above: Result Comment: Test performed by glucose meter. Results may be 10%-15% lower than serum/plasma values. (CLIA ID [id number]) Performed By: #### H EMDF, PT, BMP3M, PHOS3, MG3, CK3 #### [facility] [address] [place], [place] #### VD25H #### [facility] [address] [place] [address] Hemoglobin A1Con 08-17-2018 Hemoglobin A1c/Hemoglobin.total mass fraction (Bld) 117 mg/dL Normal [facility] Comment on above: Performed By: #### H EMDF, PT, BMP3M, PHOS3, MG3, CK3 #### [facility] [address] [place], [place] #### VD25H #### [address] [place] [address] Hemoglobin A1c/Hemoglobin.total mass fraction (Bld) 5.7 % Normal 4.0-5.7 [facility] Comment on above: Result Comment: --Hg bA1C levels may not be accurate in patients who have renal disease, received recent blood transfusions, are anemic, or who have dyshemoglobinemia. Performed By: #### H EMDF, PT, BMP3M, PHOS3, MG3, CK3 #### [address] #### VD25H #### [address] [place] [address] Hemogram w/ Autodiffon 08-17 Erythrocyte distribution width Ratio (RBC) 14.3 % Normal 11.5-14.5 [facility] Comment on above: Performed By: #### H EMDF, PT, BMP3M, PHOS3, MG3, CK3 #### [address] #### VD25H #### [address] [place] [address] Hematocrit Volume Fraction (Bld) 29.1 % Low 40.0-52.0 [facility] Comment on above: Performed By: #### H EMDF, PT, BMP3M, PHOS3, MG3, CK3 #### [address] #### VD25H #### [address] [facility] [place] [address] Hemoglobin mass conc (Bld) 9.8 g/dL Low 13.0-18.0 [facility] Comment on above: Performed By: #### H EMDF, PT, BMP3M, PHOS3, MG3, CK3 #### [address] #### VD25H #### [address] [facility] [place] [address] MCH Entitic mass (RBC) 28.4 pg Normal 26.0-34.0 [facility] Comment on above: Performed By: #### H EMDF, PT, BMP3M, PHOS3, MG3, CK3 #### [place] [address] [address] [place], [place] #### VD25H #### [facility] [address] [place] [address] MCHC mass conc (RBC) 33.5 % Normal 32.0-36.0 [facility] Comment on above: Performed By: #### H EMDF, PT, BMP3M, PHOS3, MG3, CK3 #### [address] #### VD25H #### [facility] [address] [place] [address] MCV Entitic volume (RBC) 84.7 fL Normal 80.0-98.0 [facility] Comment on above: Performed By: #### H EMDF, PT, BMP3M, PHOS3, MG3, CK3 #### [address] #### VD25H #### [facility] [address] [place] [address] Platelet mean volume Entitic volume (Bld) 8.1 fL Normal 7.4-10.4 [facility] Comment on above: Performed By: #### H EMDF, PT, BMP3M, PHOS3, MG3, CK3 #### [address] [place], [place] #### VD25H #### [facility] [address] [place] [address] Platelets #/vol (Bld) 281 10*3/uL Normal 140-440 [facility] Comment on above: Performed By: #### H EMDF, PT, BMP3M, PHOS3, MG3, CK3 #### [address] #### VD25H #### [facility] [address] [place] [address] RBC #/vol (Bld) 3.44 10*6/uL Low 4.40-5.90 [facility] Comment on above: Performed By: #### H EMDF, PT, BMP3M, PHOS3, MG3, CK3 #### [facility] [address] [place], [place] #### VD25H #### [facility] [address] [place] [address] WBC #/vol (Bld) 8.3 10*3/uL Normal 3.6-10.7 [facility] Comment on above: Performed By: #### H EMDF, PT, BMP3M, PHOS3, MG3, CK3 #### [facility] [address] [place], [place] #### VD25H #### [facility] [address] [place] [address] Hep B Surface Abon 9 Hep B Surface Ab < 8.0 Normal [facility] Comment on above: Result Comment: Inte rpretation: <8.0 Non-Reactive 8.0-11.9 Equivocal >= 12.0 Ab Detected Performed By: #### H EMDF, PT, BMP3M, PHOS3, MG3, CK3 #### [facility] [address] [place], [place] #### VD25H #### [facility] [address] [place] [address] Hep B Surface Agon 9 Hep B Surface Ag NOT DETECTED Normal Not-Detected [facility] Comment on above: Performed By: #### H EMDF, PT, BMP3M, PHOS3, MG3, CK3 #### [facility] [facility] [address] [place], [place] #### VD25H #### [facility] [address] [place] [address] Hep C Antibodyon 08-17-2018 Hep C Antibody NOT DETECTED Normal Not-Detected [facility] Comment on above: Result Comment: Bharti ents with DETECTED Hepatitis C Ab results should have a new specimen submitted for supplemental testing with a Hepatitis C Quantitative RNA assay (viral load), if clinically indicated. Performed By: #### H EMDF, PT, BMP3M, PHOS3, MG3, CK3 #### [facility] [address] [place], [place] #### VD25H #### [facility] [address] [place] [address] Hepatic Functionon ALP enzyme act/vol 116 U/L Normal 38-126 [facility] Comment on above: Performed By: #### H EMDF, PT, BMP3M, PHOS3, MG3, CK3 #### [place] [address] [address] [place], [place] #### VD25H #### [facility] [address] [place] [address] ALT enzyme act/vol 370 U/L High 13-69 [facility] Comment on above: Performed By: #### H EMDF, PT, BMP3M, PHOS3, MG3, CK3 #### [facility] [address] [facility], [place] #### VD25H #### [facility] [address] [place] [address] AST enzyme act/vol 150 U/L High 15-46 [facility] Comment on above: Performed By: #### H EMDF, PT, BMP3M, PHOS3, MG3, CK3 #### [facility] [address] [place], [place] #### VD25H #### [facility] [address] [place] [address] Bilirubin mass conc 0.7 mg/dL Normal 0.2-1.3 [facility] Comment on above: Performed By: #### H EMDF, PT, BMP3M, PHOS3, MG3, CK3 #### [facility] [address] [facility], [place] #### VD25H #### [facility] [address] [place] [address] Bilirubin.direct mass conc 0.0 mg/dL Normal 0.0-0.3 [facility] Comment on above: Performed By: #### H EMDF, PT, BMP3M, PHOS3, MG3, CK3 #### [place] [address] [address] [place], [place] #### VD25H #### [facility] [address] [place] [address] Protein mass conc 5.4 g/dL Low 6.3-8.2 [facility] Comment on above: Performed By: #### H EMDF, PT, BMP3M, PHOS3, MG3, CK3 #### [place] [address] [address] [place], [place] #### VD25H #### [facility] [address] [place] [address] Albumin mass conc 2.5 g/dL Low 3.5-5.0 [facility] Comment on above: Performed By: #### H EMDF, PT, BMP3M, PHOS3, MG3, CK3 #### [place] [address] [address] [place], [place] #### VD25H #### [facility] [address] [place] [address] Iron AND TIBCon 08-17-2018 Saturation 14 % Low 15-50 [facility] Comment on above: Performed By: #### H EMDF, PT, BMP3M, PHOS3, MG3, CK3 #### [place] [address] [address] [place], [place] #### VD25H #### [facility] [address] [place] [address] Total Iron Binding Cap. 166 ug/dL Low 261-497 [facility] Comment on above: Performed By: #### H EMDF, PT, BMP3M, PHOS3, MG3, CK3 #### [place] [address] [address] [place], [place] #### VD25H #### [facility] [address] [place] [address] Iron, Total 23 ug/dL Low 49-181 [facility] Comment on above: Performed By: #### H EMDF, PT, BMP3M, PHOS3, MG3, CK3 #### [address] [place], [place] #### VD25H #### [facility] [address] [place] [address] Magnesiumon 08-17-2018 Magnesium mass conc 2.0 mg/dL Normal 1.6-2.3 [facility] Comment on above: Performed By: #### H EMDF, PT, BMP3M, PHOS3, MG3, CK3 #### [address] [place], [place] #### VD25H #### [facility] [address] [place] [address] Manual Diffon 08-17-2018 Abs Baso Cnt 0.1 10*3/uL Normal 0.0-0.2 [facility] Comment on above: Performed By: #### H EMDF, PT, BMP3M, PHOS3, MG3, CK3 #### [address] #### VD25H #### [facility] [address] [place] Abs Neutrophile Cnt 5.6 10*3/uL Normal 2.2-8.2 [facility] Comment on above: Performed By: #### H EMDF, PT, BMP3M, PHOS3, MG3, CK3 #### [address] #### VD25H #### [facility] [address] [place] [address] Anisocytosis Ql (Bld) Slight Normal [facility] Comment on above: Performed By: #### H EMDF, PT, BMP3M, PHOS3, MG3, CK3 #### [address] #### VD25H #### [facility] [address] [place] [address] Bands 9 % High 0-3 [facility] Comment on above: Performed By: #### H EMDF, PT, BMP3M, PHOS3, MG3, CK3 #### [facility] [address] [place], [place] #### VD25H #### [facility] [address] [place] [address] Basophils/100 WBC (Bld) 1 % Normal 0-2 [facility] Comment on above: Performed By: #### H EMDF, PT, BMP3M, PHOS3, MG3, CK3 #### [facility] [address] [place], [place] #### VD25H #### [facility] [address] [place] [address] Eosinophils #/vol (Bld) 0.2 10*3/uL Normal 0.0-0.5 [facility] Comment on above: Performed By: #### H EMDF, PT, BMP3M, PHOS3, MG3, CK3 #### [place] [address] [address] [place], [place] #### VD25H #### [facility] [address] [place] [address] Eosinophils/100 WBC (Bld) 3 % Normal 1-6 [facility] Comment on above: Performed By: #### H EMDF, PT, BMP3M, PHOS3, MG3, CK3 #### [facility] [address] [place], [place] #### VD25H #### [facility] [address] [place] [address] Lymphocytes #/vol (Bld) 1.5 10*3/uL Normal 1.1-4.5 [facility] Comment on above: Performed By: #### H EMDF, PT, BMP3M, PHOS3, MG3, CK3 #### [facility] [address] [place], [place] #### VD25H #### [facility] [address] [place] [address] Lymphocytes/100 WBC (Bld) 18 % Low 20-40 [facility] Comment on above: Performed By: #### H EMDF, PT, BMP3M, PHOS3, MG3, CK3 #### [place] [address] [address] [place], [place] #### VD25H #### [facility] [address] [place] [address] Monocytes #/vol (Bld) 0.4 10*3/uL Normal 0.2-1.1 [facility] Comment on above: Performed By: #### H EMDF, PT, BMP3M, PHOS3, MG3, CK3 #### [place] [address] [place], [place] #### VD25H #### [facility] [address] [place] [address] Monocytes/100 WBC (Bld) 5 % Normal 2-10 [facility] Comment on above: Performed By: #### H EMDF, PT, BMP3M, PHOS3, MG3, CK3 #### [place] [address] [address] [place], [place] #### VD25H #### [facility] [address] [place] [address] Myelocytes 5 % Abnormal <1 [facility] Comment on above: Performed By: #### H EMDF, PT, BMP3M, PHOS3, MG3, CK3 #### [place] [address] [place], [place] #### VD25H #### [facility] [address] [place] [address] Polychromasia Slight Normal [facility] Comment on above: Performed By: #### H EMDF, PT, BMP3M, PHOS3, MG3, CK3 #### [place] [address] [address] [place], [place] #### VD25H #### [facility] [address] [place] [address] RBC morphology finding Nom (Bld) ABNORMAL Normal [facility] Comment on above: Performed By: #### H EMDF, PT, BMP3M, PHOS3, MG3, CK3 #### [place] [address] [address] [place], [place] #### VD25H #### [facility] [address] [place] [address] Seg Neutrophils 59 % Normal 40-80 [facility] Comment on above: Performed By: #### H EMDF, PT, BMP3M, PHOS3, MG3, CK3 #### [facility] [address] [place], [place] #### VD25H #### [facility] [address] [place] [address] Toxic Granulation Slight Normal [facility] Comment on above: Performed By: #### H EMDF, PT, BMP3M, PHOS3, MG3, CK3 #### [address] [place], [place] #### VD25H #### [facility] [address] [place] [address] Cells counted 100 Normal [facility] Comment on above: Performed By: #### H EMDF, PT, BMP3M, PHOS3, MG3, CK3 #### [address] [place], [place] #### VD25H #### [facility] [address] [place] [address] Phosphoruson 08-17-2018 Phosphate mass conc 3.9 mg/dL Normal 2.5-4.5 [facility] Comment on above: Performed By: #### H EMDF, PT, BMP3M, PHOS3, MG3, CK3 #### [place] [address] [address] [place], [place] #### VD25H #### [facility] [address] [place] [address] Triglycerideon 08-17-2018 Triglyceride mass conc 104 mg/dL Normal <150 [facility] Comment on above: Performed By: #### H EMDF, PT, BMP3M, PHOS3, MG3, CK3 #### [place] [address] [address] [place], [place] #### VD25H #### [facility] [address] [place] [address] Vitamin B12on 08-17-2018 Cobalamin (Vitamin B12) mass conc 615 pg/mL Normal 239-931 [facility] Comment on above: Performed By: #### H EMDF, PT, BMP3M, PHOS3, MG3, CK3 #### [facility] [employer] [facility] [address] [place] [address] #### VD25H #### [facility] [facility] [address] [place] [address] Albumin, Serumon 08-16-2018 Albumin mass conc 2.6 g/dL Low 3.5-5.0 [facility] [employer] [facility] Comment on above: Performed By: #### H EMDF, PT, BMP3M, PHOS3, MG3, CK3 #### [facility] [employer] [facility] [address] [place] [address] #### VD25H #### [facility] [employer] [facility] [address] [place] [address] CR Abdomen APon 08-16-2018 CR Abdomen AP Patient Name: KATHYA HOOPER Diagnostic Radiology Exam Date/Time 08/16/2018 10:17:24 EDT Exam CR Abdomen AP Ordering Physician [id number] ANNA Accession Number [id number] CPT4 Codes 38846 () Reason For Exam dobhoff placement Report [...] Transcribed Date and Time: 08/16/2018 12:33 Normal [facility] CR Chest Portableon 08-17-19 19 CR Chest Portable Patient Name: KATHYA HOOPER Diagnostic Radiology Exam Date/Time 08/16/2018 10:17:24 EDT Exam CR Chest Portable Ordering Physician [id number] ESPINOSA Accession Number [id number] CPT4 Codes 85759 () Reason For Exam dyspnea Report PORTABLE [...] Transcribed Date and Time: 08/16/2018 12:31 Normal [facility] Comp Panel with Mg Reflexon 08-16-2018 Calcium mass conc 7.8 mg/dL Low 8.4-10.4 [facility] Comment on above: Performed By: #### H EMDF, PT, BMP3M, PHOS3, MG3, CK3 #### [facility] [address] [place] [address] #### VD25H #### [facility] [address] [place] [address] Glucose mass conc 114 mg/dL High 70-100 [facility] Comment on above: Performed By: #### H EMDF, PT, BMP3M, PHOS3, MG3, CK3 #### [facility] [address] [place], [place] #### VD25H #### [facility] [address] [place] [address] ALP enzyme act/vol 114 U/L Normal 38-126 [facility] Comment on above: Performed By: #### H EMDF, PT, BMP3M, PHOS3, MG3, CK3 #### [facility] [address] [facility], [place] #### VD25H #### [facility] [address] [place] [address] ALT enzyme act/vol 539 U/L High 13-69 [facility] Comment on above: Performed By: #### H EMDF, PT, BMP3M, PHOS3, MG3, CK3 #### [place] [address] [address] [place], [place] #### VD25H #### [facility] [address] [place] [address] Anion gap molar conc 4 Normal [facility] Comment on above: Performed By: #### H EMDF, PT, BMP3M, PHOS3, MG3, CK3 #### [facility] [address] [place], [place] #### VD25H #### [facility] [address] [place] [address] AST enzyme act/vol 460 U/L High 15-46 [facility] Comment on above: Performed By: #### H EMDF, PT, BMP3M, PHOS3, MG3, CK3 #### [facility] [address] [place], [place] #### VD25H #### [facility] [address] [place] [address] Bilirubin mass conc 0.7 mg/dL Normal 0.2-1.3 [facility] Comment on above: Performed By: #### H EMDF, PT, BMP3M, PHOS3, MG3, CK3 #### [address] #### VD25H #### [facility] [address] [place] [address] CO2 molar conc 25 mmol/L Normal 22-30 [facility] Comment on above: Performed By: #### H EMDF, PT, BMP3M, PHOS3, MG3, CK3 #### [address] #### VD25H #### [facility] [address] [place] [address] Creatinine mass conc 0.71 mg/dL Normal 0.52-1.25 [facility] Comment on above: Performed By: #### H EMDF, PT, BMP3M, PHOS3, MG3, CK3 #### [address] #### VD25H #### [facility] [address] [facility] [place] [address] GFR/1.73 sq M predicted among blacks MDRD vol rate/area (S/P/Bld) mL/min/{1.73_m2} Normal >60 [facility] Comment on above: Performed By: #### H EMDF, PT, BMP3M, PHOS3, MG3, CK3 #### [address] #### VD25H #### [facility] [address] [place] [address] GFR/1.73 sq M predicted among non-blacks MDRD vol rate/area (S/P/Bld) mL/min/{1.73_m2} Normal >60 [facility] Comment on above: Result Comment: Sour ce- MDRD equation with creatinine calibration to IDMS(NKDEP) eGFR not recommended for drug dose adjustment Performed By: #### H EMDF, PT, BMP3M, PHOS3, MG3, CK3 #### [address] #### VD25H #### [facility] [address] [place] [address] Protein mass conc 5.1 g/dL Low 6.3-8.2 [facility] Comment on above: Performed By: #### H EMDF, PT, BMP3M, PHOS3, MG3, CK3 #### [facility] [address] [place], [place] #### VD25H #### [facility] [address] [place] [address] Urea nitrogen mass conc 22 mg/dL High 7-20 [facility] Comment on above: Performed By: #### H EMDF, PT, BMP3M, PHOS3, MG3, CK3 #### [place] [address] [address] [place], [place] #### VD25H #### [facility] [address] [place] [address] Chloride molar conc 102 mmol/L Normal 98-107 [facility] Comment on above: Performed By: #### H EMDF, PT, BMP3M, PHOS3, MG3, CK3 #### [place] [address] [address] [place], [place] #### VD25H #### [facility] [address] [place] [address] Potassium molar conc 3.1 mmol/L Low 3.5-5.1 [facility] Comment on above: Performed By: #### H EMDF, PT, BMP3M, PHOS3, MG3, CK3 #### [facility] [address] [place], [place] #### VD25H #### [facility] [address] [place] [address] Sodium molar conc 131 mmol/L Low 135-145 [facility] Comment on above: Performed By: #### H EMDF, PT, BMP3M, PHOS3, MG3, CK3 #### [place] [address] [address] [place], [place] #### VD25H #### [facility] [address] [place] [address] Albumin mass conc 2.4 g/dL Low 3.5-5.0 [facility] Comment on above: Performed By: #### H EMDF, PT, BMP3M, PHOS3, MG3, CK3 #### [facility] [address] [place] [address] #### VD25H #### [facility] [address] [place] [address] Glucose,Bedsideon 08-16-2018 Glucose mass conc 100 mg/dL Normal 70-100 [facility] Comment on above: Result Comment: Test performed by glucose meter. Results may be 10%-15% lower than serum/plasma values. (CLIA ID [id number]) Performed By: #### H EMDF, PT, BMP3M, PHOS3, MG3, CK3 #### [facility] [address] [place] [address] #### VD25H #### [employer] [address] [place] [address] Glucose mass conc 98 mg/dL Normal 70-100 [facility] Comment on above: Result Comment: Test performed by glucose meter. Results may be 10%-15% lower than serum/plasma values. (CLIA ID [id number]) Performed By: #### H EMDF, PT, BMP3M, PHOS3, MG3, CK3 #### [facility] [address] [place] [id number] #### VD25H #### [facility] [address] [facility] [place] [address] Glucose mass conc 110 mg/dL High 70-100 [facility] Comment on above: Result Comment: Test performed by glucose meter. Results may be 10%-15% lower than serum/plasma values. (CLIA ID [id number]) Performed By: #### H EMDF, PT, BMP3M, PHOS3, MG3, CK3 #### [facility] [address] [place] [id number] #### VD25H #### [employer] [facility] [address] [place] [address] Glucose mass conc 113 mg/dL High 70-100 [facility] Comment on above: Result Comment: Test performed by glucose meter. Results may be 10%-15% lower than serum/plasma values. (CLIA ID [id number]) Performed By: #### H EMDF, PT, BMP3M, PHOS3, MG3, CK3 #### [address] #### VD25H #### [facility] [address] [place] [address] Glucose mass conc 126 mg/dL High 70-100 [facility] Comment on above: Result Comment: Test performed by glucose meter. Results may be 10%-15% lower than serum/plasma values. (CLIA ID [id number]) Performed By: #### H EMDF, PT, BMP3M, PHOS3, MG3, CK3 #### [address] #### VD25H #### [facility] [address] [place] [address] Hemogram w/ Autodiffon 08-16 Abs Baso Cnt 0.0 10*3/uL Normal 0.0-0.2 [facility] Comment on above: Performed By: #### H EMDF, PT, BMP3M, PHOS3, MG3, CK3 #### [address] #### VD25H #### [facility] [address] [place] [address] Abs Neutrophile Cnt 7.7 10*3/uL High 1.8-7.0 [facility] Comment on above: Performed By: #### H EMDF, PT, BMP3M, PHOS3, MG3, CK3 #### [address] #### VD25H #### [facility] [address] [place] [address] Basophils/100 WBC (Bld) 0.5 % Normal 0.0-2.0 [facility] Comment on above: Performed By: #### H EMDF, PT, BMP3M, PHOS3, MG3, CK3 #### [address] [place], [place] #### VD25H #### [facility] [address] [place] [address] Eosinophils #/vol (Bld) 0.1 10*3/uL Normal 0.0-0.5 [facility] Comment on above: Performed By: #### H EMDF, PT, BMP3M, PHOS3, MG3, CK3 #### [address] #### VD25H #### [facility] [address] [place] [address] Eosinophils/100 WBC (Bld) 1.5 % Normal 1.0-6.0 [facility] Comment on above: Performed By: #### H EMDF, PT, BMP3M, PHOS3, MG3, CK3 #### [address] #### VD25H #### [facility] [address] [place] [address] Erythrocyte distribution width Ratio (RBC) 14.4 % Normal 11.5-14.5 [facility] Comment on above: Performed By: #### H EMDF, PT, BMP3M, PHOS3, MG3, CK3 #### [address] #### VD25H #### [facility] [address] [place] [address] Granulocytes/100 WBC (Bld) 79.7 % Normal 40.0-80.0 [facility] Comment on above: Performed By: #### H EMDF, PT, BMP3M, PHOS3, MG3, CK3 #### [address] #### VD25H #### [facility] [address] [place] [address] Hematocrit Volume Fraction (Bld) 27.1 % Low 40.0-52.0 [facility] Comment on above: Performed By: #### H EMDF, PT, BMP3M, PHOS3, MG3, CK3 #### [facility] [address] [place], [place] #### VD25H #### [facility] [address] [place] [address] Hemoglobin mass conc (Bld) 9.2 g/dL Low 13.0-18.0 [facility] Comment on above: Performed By: #### H EMDF, PT, BMP3M, PHOS3, MG3, CK3 #### [address] #### VD25H #### [facility] [address] [place] [address] Lymphocytes #/vol (Bld) 1.0 10*3/uL Normal 1.0-4.3 [facility] Comment on above: Performed By: #### H EMDF, PT, BMP3M, PHOS3, MG3, CK3 #### [address] #### VD25H #### [facility] [address] [place] [address] Lymphocytes/100 WBC (Bld) 10.0 % Low 20.0-40.0 [facility] Comment on above: Performed By: #### H EMDF, PT, BMP3M, PHOS3, MG3, CK3 #### [address] [place], [place] #### VD25H #### [facility] [address] [place] [address] MCH Entitic mass (RBC) 28.5 pg Normal 26.0-34.0 [facility] Comment on above: Performed By: #### H EMDF, PT, BMP3M, PHOS3, MG3, CK3 #### [address] #### VD25H #### [facility] [address] [place] [address] MCHC mass conc (RBC) 33.8 % Normal 32.0-36.0 [facility] Comment on above: Performed By: #### H EMDF, PT, BMP3M, PHOS3, MG3, CK3 #### [facility] [address] [place], [place] #### VD25H #### [facility] [address] [place] [address] MCV Entitic volume (RBC) 84.4 fL Normal 80.0-98.0 [facility] Comment on above: Performed By: #### H EMDF, PT, BMP3M, PHOS3, MG3, CK3 #### [address] #### VD25H #### [facility] [address] [place] [address] Monocytes #/vol (Bld) 0.8 10*3/uL Normal 0.0-0.8 [facility] Comment on above: Performed By: #### H EMDF, PT, BMP3M, PHOS3, MG3, CK3 #### [address] #### VD25H #### [facility] [address] [place] [address] Monocytes/100 WBC (Bld) 8.3 % Normal 2.0-10.0 [facility] Comment on above: Performed By: #### H EMDF, PT, BMP3M, PHOS3, MG3, CK3 #### [address] #### VD25H #### [facility] [address] [place] [address] Platelet mean volume Entitic volume (Bld) 8.4 fL Normal 7.4-10.4 [facility] Comment on above: Performed By: #### H EMDF, PT, BMP3M, PHOS3, MG3, CK3 #### [address] #### VD25H #### [facility] [address] [place] [address] Platelets #/vol (Bld) 245 10*3/uL Normal 140-440 [facility] Comment on above: Performed By: #### H EMDF, PT, BMP3M, PHOS3, MG3, CK3 #### [place] [address] [place], [place] #### VD25H #### [facility] [address] [place] [address] RBC #/vol (Bld) 3.21 10*6/uL Low 4.40-5.90 [facility] Comment on above: Performed By: #### H EMDF, PT, BMP3M, PHOS3, MG3, CK3 #### [address] #### VD25H #### [place] [address] [place] [address] WBC #/vol (Bld) 9.7 10*3/uL Normal 3.6-10.7 [facility] Comment on above: Performed By: #### H EMDF, PT, BMP3M, PHOS3, MG3, CK3 #### [address] #### VD25H #### [address] [place] [address] Magnesiumon 08-16-2018 Magnesium mass conc 2.1 mg/dL Normal 1.6-2.3 [facility] Comment on above: Performed By: #### H EMDF, PT, BMP3M, PHOS3, MG3, CK3 #### [address] #### VD25H #### [place] [address] [place] [address] Phosphoruson 08-16-2018 Phosphate mass conc 4.4 mg/dL Normal 2.5-4.5 [facility] Comment on above: Performed By: #### H EMDF, PT, BMP3M, PHOS3, MG3, CK3 #### [facility] [address] [place] #### VD25H #### [facility] [address] [place] [address] Potassiumon 08-16-2018 Potassium molar conc 3.5 mmol/L Normal 3.5-5.1 [facility] Comment on above: Performed By: #### H EMDF, PT, BMP3M, PHOS3, MG3, CK3 #### [address] [place], [place] #### VD25H #### [facility] [address] [place] [address] Procalcitoninon 08-16-2018 Protein mass conc 3.10 ng/mL Abnormal <0.10 [facility] Comment on above: Performed By: #### H EMDF, PT, BMP3M, PHOS3, MG3, CK3 #### [address] #### VD25H #### [facility] [address] [place] [address] Prothrombin Timeon 9 INR Coag RelTime (PPP) 1.1 Normal 0.9-1.1 [facility] Comment on above: Result Comment: Yefri [...] PT, BMP3M, PHOS3, MG3, CK3 #### [address] [place], [place] #### VD25H #### [facility] [address] [place] [address] Prothrombin time (PT) Coag time (PPP) 11.8 s Normal 9.0-12.0 [facility] Comment on above: Result Comment: . Performed By: #### H EMDF, PT, BMP3M, PHOS3, MG3, CK3 #### [facility] [address] [facility] [place] [address] #### VD25H #### [facility] [address] [place] [address] US Abdomen Limitedon 019 US Abdomen Limited Patient Name: KATHYA HOOPER Ultrasound Exam Date/Time 08/16/2018 19:12:00 EDT Exam US Abdomen Limited Ordering Physician [id number] ESPINOSA Accession Number [id number] CPT4 Codes 51152 () Reason For Exam elevated transaminases Report [...] Transcribed Date and Time: 08/16/2018 7:26 Normal [facility] Glucose,Bedsideon 08-15-2018 Glucose mass conc 98 mg/dL Normal 70-100 [facility] Comment on above: Result Comment: Test performed by glucose meter. Results may be 10%-15% lower than serum/plasma values. (CLIA ID [id number]) Performed By: #### H EMDF, PT, BMP3M, PHOS3, MG3, CK3 #### [place] [address] [place], [place] #### VD25H #### [facility] [address] [place] [address] Procalcitoninon 08-15-2018 Interpretation See Below Normal [facility] Comment on above: Result Comment: PCT <0.50 = Low risk of severe sepsis and/or septic shock. PCT >2.00 = High risk of severe sepsis and/or septic shock. Performed By: #### H EMDF, PT, BMP3M, PHOS3, MG3, CK3 #### [address] #### VD25H #### [place] [address] [place] [address] CULTURE FUNGUSon 08-13-2018 CULTURE FUNGUS CULTURE FUNGUS --> Status: F No fungus isolated after 21 days. Normal [facility] Comment on above: Order Comment: Speci men Source Comment:Body Fluid Performed By: #### H EMDF, PT, BMP3M, PHOS3, MG3, CK3 #### [address] #### VD25H #### [facility] [address] [place] [address] Hemogram w/ Autodiffon 08-01 Abs Baso Cnt 0.2 10*3/uL Normal 0.0-0.2 [facility] Comment on above: Performed By: #### H EMDF, PT, BMP3M, PHOS3, MG3, CK3 #### [address] #### VD25H #### [facility] [address] [place], [place] Abs Neutrophile Cnt 14.3 10*3/uL High 1.8-7.0 [facility] Comment on above: Performed By: #### H EMDF, PT, BMP3M, PHOS3, MG3, CK3 #### [facility] [address] [place], [place] #### VD25H #### [facility] [address] [place] [address] Basophils/100 WBC (Bld) 1.0 % Normal 0.0-2.0 [facility] Comment on above: Performed By: #### H EMDF, PT, BMP3M, PHOS3, MG3, CK3 #### [place] [address] [address] [place], [place] #### VD25H #### [facility] [address] [place] [address] Eosinophils #/vol (Bld) 0.4 10*3/uL Normal 0.0-0.5 [facility] Comment on above: Performed By: #### H EMDF, PT, BMP3M, PHOS3, MG3, CK3 #### [address] [place], [place] #### VD25H #### [facility] [address] [place] [address] Eosinophils/100 WBC (Bld) 2.3 % Normal 1.0-6.0 [facility] Comment on above: Performed By: #### H EMDF, PT, BMP3M, PHOS3, MG3, CK3 #### [address] #### VD25H #### [facility] [address] [place] [address] Erythrocyte distribution width Ratio (RBC) 13.7 % Normal 11.5-14.5 [facility] Comment on above: Performed By: #### H EMDF, PT, BMP3M, PHOS3, MG3, CK3 #### [address] #### VD25H #### [facility] [address] [place] [address] Granulocytes/100 WBC (Bld) 82.1 % High 40.0-80.0 [facility] Comment on above: Performed By: #### H EMDF, PT, BMP3M, PHOS3, MG3, CK3 #### [facility] [address] [place], [place] #### VD25H #### [facility] [address] [place] [address] Hematocrit Volume Fraction (Bld) 31.2 % Low 40.0-52.0 [facility] Comment on above: Performed By: #### H EMDF, PT, BMP3M, PHOS3, MG3, CK3 #### [address] #### VD25H #### [facility] [address] [place] [address] Hemoglobin mass conc (Bld) 10.5 g/dL Low 13.0-18.0 [facility] Comment on above: Performed By: #### H EMDF, PT, BMP3M, PHOS3, MG3, CK3 #### [address] #### VD25H #### [facility] [address] [place] [address] Lymphocytes #/vol (Bld) 1.6 10*3/uL Normal 1.0-4.3 [facility] Comment on above: Performed By: #### H EMDF, PT, BMP3M, PHOS3, MG3, CK3 #### [address] #### VD25H #### [facility] [address] [place] [address] Lymphocytes/100 WBC (Bld) 9.1 % Low 20.0-40.0 [facility] Comment on above: Performed By: #### H EMDF, PT, BMP3M, PHOS3, MG3, CK3 #### [address] #### VD25H #### [facility] [address] [place] [address] MCH Entitic mass (RBC) 28.9 pg Normal 26.0-34.0 [facility] Comment on above: Performed By: #### H EMDF, PT, BMP3M, PHOS3, MG3, CK3 #### [facility] [address] [place], [place] #### VD25H #### [facility] [address] [place] [address] MCHC mass conc (RBC) 33.7 % Normal 32.0-36.0 [facility] Comment on above: Performed By: #### H EMDF, PT, BMP3M, PHOS3, MG3, CK3 #### [place] [address] [address] [place], [place] #### VD25H #### [facility] [address] [place] [address] MCV Entitic volume (RBC) 85.5 fL Normal 80.0-98.0 [facility] Comment on above: Performed By: #### H EMDF, PT, BMP3M, PHOS3, MG3, CK3 #### [address] #### VD25H #### [facility] [address] [place] [address] Monocytes #/vol (Bld) 1.0 10*3/uL High 0.0-0.8 [facility] Comment on above: Performed By: #### H EMDF, PT, BMP3M, PHOS3, MG3, CK3 #### [place] [address] [address] [place], [place] #### VD25H #### [facility] [address] [place] [address] Monocytes/100 WBC (Bld) 5.5 % Normal 2.0-10.0 [facility] Comment on above: Performed By: #### H EMDF, PT, BMP3M, PHOS3, MG3, CK3 #### [address] #### VD25H #### [facility] [address] [place] [address] Platelet mean volume Entitic volume (Bld) 8.0 fL Normal 7.4-10.4 [facility] Comment on above: Performed By: #### H EMDF, PT, BMP3M, PHOS3, MG3, CK3 #### [address] #### VD25H #### [facility] [address] [place] [address] Platelets #/vol (Bld) 425 10*3/uL Normal 140-440 [facility] Comment on above: Performed By: #### H EMDF, PT, BMP3M, PHOS3, MG3, CK3 #### [address] #### VD25H #### [place] [address] [place] [address] RBC #/vol (Bld) 3.65 10*6/uL Low 4.40-5.90 [facility] Comment on above: Performed By: #### H EMDF, PT, BMP3M, PHOS3, MG3, CK3 #### [address] #### VD25H #### [place] [address] [place] [address] WBC #/vol (Bld) 17.4 10*3/uL High 3.6-10.7 [facility] Comment on above: Performed By: #### H EMDF, PT, BMP3M, PHOS3, MG3, CK3 #### [address] #### VD25H #### [place] [address] [place] [address] Basic Metabolic Panelon 04-0 Calcium mass conc 8.3 mg/dL Low 8.4-10.4 [facility] Comment on above: Performed By: #### H EMDF, PT, BMP3M, PHOS3, MG3, CK3 #### [place] [address] [place] [address] #### VD25H #### [facility] [address] [place] [address] Glucose mass conc 114 mg/dL High 70-100 [facility] Comment on above: Performed By: #### H EMDF, PT, BMP3M, PHOS3, MG3, CK3 #### [facility] [address] [facility] [place] [address] #### VD25H #### [facility] [address] [place] [address] Anion gap molar conc 10 Normal [facility] Comment on above: Performed By: #### H EMDF, PT, BMP3M, PHOS3, MG3, CK3 #### [address] [place] [address] #### VD25H #### [facility] [address] [place] [address] CO2 molar conc 34 mmol/L High 22-30 [facility] Comment on above: Performed By: #### H EMDF, PT, BMP3M, PHOS3, MG3, CK3 #### [place] [address] [address] [facility] [place] [address] #### VD25H #### [facility] [address] [place] [address] Creatinine mass conc 0.52 mg/dL Normal 0.52-1.25 [facility] Comment on above: Performed By: #### H EMDF, PT, BMP3M, PHOS3, MG3, CK3 #### [address] [place] [address] [place] [address] #### VD25H #### [facility] [address] [place] [address] GFR/1.73 sq M predicted among blacks MDRD vol rate/area (S/P/Bld) mL/min/{1.73_m2} Normal >60 [facility] Comment on above: Performed By: #### H EMDF, PT, BMP3M, PHOS3, MG3, CK3 #### [place] [address] [address] [facility], [place] #### VD25H #### [facility] [address] [place] [address] GFR/1.73 sq M predicted among non-blacks MDRD vol rate/area (S/P/Bld) mL/min/{1.73_m2} Normal >60 [facility] Comment on above: Result Comment: Sour ce- MDRD equation with creatinine calibration to IDMS(NKDEP) eGFR not recommended for drug dose adjustment Performed By: #### H EMDF, PT, BMP3M, PHOS3, MG3, CK3 #### [place] [address] [address] [facility], [place] #### VD25H #### [facility] [address] [place] [address] Urea nitrogen mass conc 23 mg/dL High 7-20 [facility] Comment on above: Performed By: #### H EMDF, PT, BMP3M, PHOS3, MG3, CK3 #### [place] [address] [address] [facility], [place] #### VD25H #### [facility] [address] [place] [address] Chloride molar conc 95 mmol/L Low 98-107 [facility] Comment on above: Performed By: #### H EMDF, PT, BMP3M, PHOS3, MG3, CK3 #### [facility] [address] [facility], [place] #### VD25H #### [facility] [address] [place] [address] Potassium molar conc 3.7 mmol/L Normal 3.5-5.1 [facility] Comment on above: Performed By: #### H EMDF, PT, BMP3M, PHOS3, MG3, CK3 #### [facility] [address] [facility] [place] #### VD25H #### [facility] [address] [place] [address] Sodium molar conc 139 mmol/L Normal 135-145 [facility] Comment on above: Performed By: #### H EMDF, PT, BMP3M, PHOS3, MG3, CK3 #### [address] #### VD25H #### [facility] [address] [place] [place] [address] Hemogram w/ Autodiffon 07-31 Abs Baso Cnt 0.2 10*3/uL Normal 0.0-0.2 [facility] Comment on above: Performed By: #### H EMDF, PT, BMP3M, PHOS3, MG3, CK3 #### [address] #### VD25H #### [place] [address] [facility] [place] [address] Abs Neutrophile Cnt 13.4 10*3/uL High 1.8-7.0 [facility] Comment on above: Performed By: #### H EMDF, PT, BMP3M, PHOS3, MG3, CK3 #### [address] #### VD25H #### [facility] [address] [facility] [place] [address] Basophils/100 WBC (Bld) 1.0 % Normal 0.0-2.0 [facility] Comment on above: Performed By: #### H EMDF, PT, BMP3M, PHOS3, MG3, CK3 #### [address] #### VD25H #### [facility] [address] [facility] [place] [address] Eosinophils #/vol (Bld) 0.5 10*3/uL Normal 0.0-0.5 [facility] Comment on above: Performed By: #### H EMDF, PT, BMP3M, PHOS3, MG3, CK3 #### [address] #### VD25H #### [facility] [address] [place] [address] Eosinophils/100 WBC (Bld) 3.1 % Normal 1.0-6.0 [facility] Comment on above: Performed By: #### H EMDF, PT, BMP3M, PHOS3, MG3, CK3 #### [facility] [address] [place], [place] #### VD25H #### [facility] [address] [place] [address] Erythrocyte distribution width Ratio (RBC) 14.0 % Normal 11.5-14.5 [facility] Comment on above: Performed By: #### H EMDF, PT, BMP3M, PHOS3, MG3, CK3 #### [address] #### VD25H #### [facility] [address] [place] [address] Granulocytes/100 WBC (Bld) 80.6 % High 40.0-80.0 [facility] Comment on above: Performed By: #### H EMDF, PT, BMP3M, PHOS3, MG3, CK3 #### [address] #### VD25H #### [facility] [address] [place] [address] Hematocrit Volume Fraction (Bld) 32.3 % Low 40.0-52.0 [facility] Comment on above: Performed By: #### H EMDF, PT, BMP3M, PHOS3, MG3, CK3 #### [address] [place], [place] #### VD25H #### [facility] [address] [place] [address] Hemoglobin mass conc (Bld) 10.8 g/dL Low 13.0-18.0 [facility] Comment on above: Performed By: #### H EMDF, PT, BMP3M, PHOS3, MG3, CK3 #### [address] #### VD25H #### [facility] [address] [place] [address] Lymphocytes #/vol (Bld) 1.6 10*3/uL Normal 1.0-4.3 [facility] Comment on above: Performed By: #### H EMDF, PT, BMP3M, PHOS3, MG3, CK3 #### [address] #### VD25H #### [facility] [address] [place] [address] Lymphocytes/100 WBC (Bld) 9.8 % Low 20.0-40.0 [facility] Comment on above: Performed By: #### H EMDF, PT, BMP3M, PHOS3, MG3, CK3 #### [address] #### VD25H #### [place] [address] [place] [address] MCH Entitic mass (RBC) 28.9 pg Normal 26.0-34.0 [facility] Comment on above: Performed By: #### H EMDF, PT, BMP3M, PHOS3, MG3, CK3 #### [address] #### VD25H #### [place] [address] [place] [address] MCHC mass conc (RBC) 33.6 % Normal 32.0-36.0 [facility] Comment on above: Performed By: #### H EMDF, PT, BMP3M, PHOS3, MG3, CK3 #### [address] #### VD25H #### [facility] [address] [place] [address] MCV Entitic volume (RBC) 86.1 fL Normal 80.0-98.0 [facility] Comment on above: Performed By: #### H EMDF, PT, BMP3M, PHOS3, MG3, CK3 #### [address] #### VD25H #### [facility] [address] [place] [address] Monocytes #/vol (Bld) 0.9 10*3/uL High 0.0-0.8 [facility] Comment on above: Performed By: #### H EMDF, PT, BMP3M, PHOS3, MG3, CK3 #### [place] [address] [address] [place], [place] #### VD25H #### [facility] [address] [place] [address] Monocytes/100 WBC (Bld) 5.5 % Normal 2.0-10.0 [facility] Comment on above: Performed By: #### H EMDF, PT, BMP3M, PHOS3, MG3, CK3 #### [address] #### VD25H #### [facility] [address] [place] [address] Platelet mean volume Entitic volume (Bld) 8.2 fL Normal 7.4-10.4 [facility] Comment on above: Performed By: #### H EMDF, PT, BMP3M, PHOS3, MG3, CK3 #### [address] #### VD25H #### [facility] [address] [place] [address] Platelets #/vol (Bld) 475 10*3/uL High 140-440 [facility] Comment on above: Performed By: #### H EMDF, PT, BMP3M, PHOS3, MG3, CK3 #### [address] #### VD25H #### [facility] [address] [place] [address] RBC #/vol (Bld) 3.75 10*6/uL Low 4.40-5.90 [facility] Comment on above: Performed By: #### H EMDF, PT, BMP3M, PHOS3, MG3, CK3 #### [facility] [address] [place], [place] #### VD25H #### [facility] [address] [place] [address] WBC #/vol (Bld) 16.6 10*3/uL High 3.6-10.7 [facility] Comment on above: Performed By: #### H EMDF, PT, BMP3M, PHOS3, MG3, CK3 #### [place] [address] [address] [place], [place] #### VD25H #### [facility] [address] [place] [address] Magnesiumon 07-31-2018 Magnesium mass conc 2.4 mg/dL High 1.6-2.3 [facility] Comment on above: Performed By: #### H EMDF, PT, BMP3M, PHOS3, MG3, CK3 #### [address] #### VD25H #### [facility] [address] [place] [address] Phosphoruson 07-31-2018 Phosphate mass conc 4.5 mg/dL Normal 2.5-4.5 [facility] Comment on above: Performed By: #### H EMDF, PT, BMP3M, PHOS3, MG3, CK3 #### [address] #### VD25H #### [facility] [address] [place] [address] Basic Metabolic Panelon Calcium mass conc 8.6 mg/dL Normal 8.4-10.4 [facility] Comment on above: Performed By: #### H EMDF, PT, BMP3M, PHOS3, MG3, CK3 #### [address] #### VD25H #### [facility] [address] [place] [address] Anion gap molar conc 8 Normal [facility] Comment on above: Performed By: #### H EMDF, PT, BMP3M, PHOS3, MG3, CK3 #### [address] [address] #### VD25H #### [facility] [address] [place] [address] CO2 molar conc 34 mmol/L High 22-30 [facility] Comment on above: Performed By: #### H EMDF, PT, BMP3M, PHOS3, MG3, CK3 #### [address] [address] #### VD25H #### [facility] [address] [place] [address] Creatinine mass conc 0.56 mg/dL Normal 0.52-1.25 [facility] Comment on above: Performed By: #### H EMDF, PT, BMP3M, PHOS3, MG3, CK3 #### [address] [address] #### VD25H #### [facility] [address] [place] [address] GFR/1.73 sq M predicted among blacks MDRD vol rate/area (S/P/Bld) mL/min/{1.73_m2} Normal >60 [facility] Comment on above: Performed By: #### H EMDF, PT, BMP3M, PHOS3, MG3, CK3 #### [address] [address] #### VD25H #### [facility] [address] [place] [address] GFR/1.73 sq M predicted among non-blacks MDRD vol rate/area (S/P/Bld) mL/min/{1.73_m2} Normal >60 [facility] Comment on above: Result Comment: Sour ce- MDRD equation with creatinine calibration to IDMS(NKDEP) eGFR not recommended for drug dose adjustment Performed By: #### H EMDF, PT, BMP3M, PHOS3, MG3, CK3 #### [address], [place] #### VD25H #### [facility] [address] [place] [address] Glucose mass conc 121 mg/dL High 70-100 [facility] Comment on above: Performed By: #### H EMDF, PT, BMP3M, PHOS3, MG3, CK3 #### [place] [address] [address] [facility], [place] #### VD25H #### [facility] [address] [place] [address] Urea nitrogen mass conc 29 mg/dL High 7-20 [facility] Comment on above: Performed By: #### H EMDF, PT, BMP3M, PHOS3, MG3, CK3 #### [place] [address] [address] [facility], [place] #### VD25H #### [facility] [address] [place] [address] Chloride molar conc 99 mmol/L Normal 98-107 [facility] Comment on above: Performed By: #### H EMDF, PT, BMP3M, PHOS3, MG3, CK3 #### [place] [address] [address] [facility], [place] #### VD25H #### [facility] [address] [place] [address] Potassium molar conc 3.7 mmol/L Normal 3.5-5.1 [facility] Comment on above: Performed By: #### H EMDF, PT, BMP3M, PHOS3, MG3, CK3 #### [place] [address] [address] [facility], [place] #### VD25H #### [facility] [address] [place] [address] Sodium molar conc 141 mmol/L Normal 135-145 [facility] Comment on above: Performed By: #### H EMDF, PT, BMP3M, PHOS3, MG3, CK3 #### [place] [address] [address] [facility], [place] #### VD25H #### [facility] [address] [place] [address] CR Abdomen APon 07-30-2018 CR Abdomen AP Patient Name: KATHYA HOOPER Diagnostic Radiology Exam Date/Time 07/30/2018 10:28:42 EDT Exam CR Abdomen AP Ordering Physician INDRA JACOBSON Accession Number [id number] CPT4 Codes 13111 () Reason For Exam abd distension Report [...] Transcribed Date and Time: 07/30/2018 3:57 Normal [facility] CR Chest Portableon 07-31-19 19 CR Chest Portable Patient Name: KATHYA HOOPER Diagnostic Radiology Exam Date/Time 07/30/2018 12:28:13 EDT Exam CR Chest Portable Ordering Physician SALO DAVIS Accession Number [id number] CPT4 Codes 02502 () Reason For Exam line reposition Report [...] Transcribed Date and Time: 07/30/2018 1:32 Normal [facility] CR Chest Portable Patient Name: KATHYA HOOPER Diagnostic Radiology Exam Date/Time 07/30/2018 06:40:08 EDT Exam CR Chest Portable Ordering Physician MARIA EUGENIA PEREZ Accession Number [id number] CPT4 Codes 30971 () Reason For Exam ETT placement Report [...] Transcribed Date and Time: 07/30/2018 10:26 Normal [facility] Glucose,Bedsideon 07-30-2018 Glucose mass conc 125 mg/dL High 70-100 [facility] Comment on above: Result Comment: Test performed by glucose meter. Results may be 10%-15% lower than serum/plasma values. (CLIA ID [id number]) Performed By: #### H EMDF, PT, BMP3M, PHOS3, MG3, CK3 #### [address] #### VD25H #### [facility] [address] [place] [address] Glucose mass conc 117 mg/dL High 70-100 [facility] Comment on above: Result Comment: Test performed by glucose meter. Results may be 10%-15% lower than serum/plasma values. (CLIA ID [id number]) Performed By: #### H EMDF, PT, BMP3M, PHOS3, MG3, CK3 #### [address] #### VD25H #### [place] [address] [place] [address] Glucose mass conc 44 mg/dL Low 70-100 [facility] Comment on above: Result Comment: Repe ated Test; Test performed by glucose meter. Results may be 10%-15% lower than serum/plasma values. (CLIA ID [id number]) Performed By: #### H EMDF, PT, BMP3M, PHOS3, MG3, CK3 #### [address] #### VD25H #### [facility] [address] [place] [place] [address] Hemogram w/ Autodiffon 07-30 Abs Baso Cnt 0.2 10*3/uL Normal 0.0-0.2 [facility] Comment on above: Performed By: #### H EMDF, PT, BMP3M, PHOS3, MG3, CK3 #### [address] #### VD25H #### [facility] [address] [place] [address] Abs Neutrophile Cnt 13.2 10*3/uL High 1.8-7.0 [facility] Comment on above: Performed By: #### H EMDF, PT, BMP3M, PHOS3, MG3, CK3 #### [facility] [address] [place], [place] #### VD25H #### [facility] [address] [place] [address] Basophils/100 WBC (Bld) 0.9 % Normal 0.0-2.0 [facility] Comment on above: Performed By: #### H EMDF, PT, BMP3M, PHOS3, MG3, CK3 #### [place] [address] [address] [place], [place] #### VD25H #### [facility] [address] [place] [address] Eosinophils #/vol (Bld) 0.5 10*3/uL Normal 0.0-0.5 [facility] Comment on above: Performed By: #### H EMDF, PT, BMP3M, PHOS3, MG3, CK3 #### [address] #### VD25H #### [facility] [address] [place] [address] Eosinophils/100 WBC (Bld) 2.8 % Normal 1.0-6.0 [facility] Comment on above: Performed By: #### H EMDF, PT, BMP3M, PHOS3, MG3, CK3 #### [address] #### VD25H #### [facility] [address] [place] [address] Erythrocyte distribution width Ratio (RBC) 13.7 % Normal 11.5-14.5 [facility] Comment on above: Performed By: #### H EMDF, PT, BMP3M, PHOS3, MG3, CK3 #### [address] #### VD25H #### [facility] [address] [place] [address] Granulocytes/100 WBC (Bld) 76.6 % Normal 40.0-80.0 [facility] Comment on above: Performed By: #### H EMDF, PT, BMP3M, PHOS3, MG3, CK3 #### [address] #### VD25H #### [facility] [address] [place] [address] Hematocrit Volume Fraction (Bld) 31.4 % Low 40.0-52.0 [facility] Comment on above: Performed By: #### H EMDF, PT, BMP3M, PHOS3, MG3, CK3 #### [address] #### VD25H #### [facility] [address] [place] [address] Hemoglobin mass conc (Bld) 10.6 g/dL Low 13.0-18.0 [facility] Comment on above: Performed By: #### H EMDF, PT, BMP3M, PHOS3, MG3, CK3 #### [address] #### VD25H #### [facility] [address] [place] [address] Lymphocytes #/vol (Bld) 2.2 10*3/uL Normal 1.0-4.3 [facility] Comment on above: Performed By: #### H EMDF, PT, BMP3M, PHOS3, MG3, CK3 #### [address] #### VD25H #### [facility] [address] [place] [address] Lymphocytes/100 WBC (Bld) 12.9 % Low 20.0-40.0 [facility] Comment on above: Performed By: #### H EMDF, PT, BMP3M, PHOS3, MG3, CK3 #### [address] #### VD25H #### [facility] [address] [place] [address] MCH Entitic mass (RBC) 29.2 pg Normal 26.0-34.0 [facility] Comment on above: Performed By: #### H EMDF, PT, BMP3M, PHOS3, MG3, CK3 #### [facility] [address] [place], [place] #### VD25H #### [facility] [address] [place] [address] MCHC mass conc (RBC) 33.8 % Normal 32.0-36.0 [facility] Comment on above: Performed By: #### H EMDF, PT, BMP3M, PHOS3, MG3, CK3 #### [address] #### VD25H #### [facility] [address] [place] [address] MCV Entitic volume (RBC) 86.4 fL Normal 80.0-98.0 [facility] Comment on above: Performed By: #### H EMDF, PT, BMP3M, PHOS3, MG3, CK3 #### [place] [address] [place], [place] #### VD25H #### [facility] [address] [place] [address] Monocytes #/vol (Bld) 1.2 10*3/uL High 0.0-0.8 [facility] Comment on above: Performed By: #### H EMDF, PT, BMP3M, PHOS3, MG3, CK3 #### [address] #### VD25H #### [facility] [address] [place] [address] Monocytes/100 WBC (Bld) 6.8 % Normal 2.0-10.0 [facility] Comment on above: Performed By: #### H EMDF, PT, BMP3M, PHOS3, MG3, CK3 #### [address] #### VD25H #### [facility] [address] [place] [address] Platelet mean volume Entitic volume (Bld) 8.1 fL Normal 7.4-10.4 [facility] Comment on above: Performed By: #### H EMDF, PT, BMP3M, PHOS3, MG3, CK3 #### [facility] [address] [place], [place] #### VD25H #### [facility] [address] [place] [address] Platelets #/vol (Bld) 507 10*3/uL High 140-440 [facility] Comment on above: Performed By: #### H EMDF, PT, BMP3M, PHOS3, MG3, CK3 #### [place] [address] [place], [place] #### VD25H #### [facility] [address] [place] [address] RBC #/vol (Bld) 3.64 10*6/uL Low 4.40-5.90 [facility] Comment on above: Performed By: #### H EMDF, PT, BMP3M, PHOS3, MG3, CK3 #### [address] #### VD25H #### [facility] [address] [place] [address] WBC #/vol (Bld) 17.2 10*3/uL High 3.6-10.7 [facility] Comment on above: Performed By: #### H EMDF, PT, BMP3M, PHOS3, MG3, CK3 #### [address] [place], [place] #### VD25H #### [facility] [address] [place] [address] Magnesiumon 07-30-2018 Magnesium mass conc 2.5 mg/dL High 1.6-2.3 [facility] Comment on above: Performed By: #### H EMDF, PT, BMP3M, PHOS3, MG3, CK3 #### [address] #### VD25H #### [facility] [address] [place] [address] Phosphoruson 07-30-2018 Phosphate mass conc 4.5 mg/dL Normal 2.5-4.5 [facility] Comment on above: Performed By: #### H EMDF, PT, BMP3M, PHOS3, MG3, CK3 #### [facility] [address] [place], [place] #### VD25H #### [facility] [address] [place] [address] VL Venous Duplex US Lower Ex t Bilateralon 07-30-2018 VL Venous Duplex US Lower Ext Bilateral Patient Name: KATHYA HOOPER Ultrasound Exam Date/Time 07/30/2018 12:27:47 EDT Exam VL Venous Duplex US Lower Ext Bilateral Ordering Physician ETIENNE MARTÍNEZ JULIE Accession Number [id number] CPT4 Codes 73120 () Reason For Exam edema Report [facility] --- Lower Extremity Venous Duplex Report Patient Name: Kathya Hooper : 1955 Study Date: 07/30/2018 [place] (63yrs) Age: 63 Account: [id number] Gender: M Loc: [id number] BP: Ordering: Yesenia Martínez Technologist: Ordering Physician: Yesenia Martínez Database Analyst: Barbara Suarez RDMS, T Interpreting Physician: Krysta Arora --- Location: [facility] --- INDICATIONS: Edema. --- CONCLUSIONS 1. [...] performed. The images were obtained using a [employer] E9 vascular ultrasound machine. --- VENOUS FLOW [...] ---------+-------+--- --+ Electronically signed by: Krysta Arora [id number] Final Dictated: 07/30/2018 1:30 pm Dictating Physician: KRYSTA ARORA Signed Date and Time: 07/30/2018 1:29 pm Signed by: KRYSTA ARORA [facility] Arterial Blood Gaseson 07-29 CO2 molar conc 34.4 mmol/L High 23.0-27.0 [facility] Comment on above: Performed By: #### H EMDF, PT, BMP3M, PHOS3, MG3, CK3 #### [facility] [address] [place], [place] #### VD25H #### [facility] [address] [place] [address] HCO3 molar conc (Bld) 33.0 mmol/L High 21.0-25.0 [facility] Comment on above: Performed By: #### H EMDF, PT, BMP3M, PHOS3, MG3, CK3 #### [address] [place] [address] [place], [place] #### VD25H #### [facility] [address] [place] [address] Hemoglobin mass conc (Bld) 11.5 g/dL Normal ScreenOnly [facility] Comment on above: Performed By: #### H EMDF, PT, BMP3M, PHOS3, MG3, CK3 #### [address] #### VD25H #### [facility] [address] [facility] [place] [address] Oxygen ppres (Bld) 84.2 mm[Hg] Normal 80.0-100.0 [facility] Comment on above: Performed By: #### H EMDF, PT, BMP3M, PHOS3, MG3, CK3 #### [address] #### VD25H #### [facility] [address] [place] [address] Oxygen saturation in Blood 96.2 % Normal 95.0-100.0 [facility] Comment on above: Performed By: #### H EMDF, PT, BMP3M, PHOS3, MG3, CK3 #### [address] [place] [address] [place], [place] #### VD25H #### [facility] [address] [place] [address] pCO2 46.8 mm[Hg] High 35.0-45.0 [facility] Comment on above: Performed By: #### H EMDF, PT, BMP3M, PHOS3, MG3, CK3 #### [place] [address] [address] [place], [place] #### VD25H #### [facility] [address] [place] [address] pH (Bld) 7.466 High 7.350-7.450 [facility] Comment on above: Performed By: #### H EMDF, PT, BMP3M, PHOS3, MG3, CK3 #### [address] [place], [place] #### VD25H #### [place] [address] [place] [address] Std Base Excess 8.2 mmol/L High -3.0-3.0 [facility] Comment on above: Performed By: #### H EMDF, PT, BMP3M, PHOS3, MG3, CK3 #### [place] [address] [address] [place], [place] #### VD25H #### [place] [address] [place] [address] FIO2 .30 Normal [facility] Comment on above: Performed By: #### H EMDF, PT, BMP3M, PHOS3, MG3, CK3 #### [place] [address] [address] [facility] [place] #### VD25H #### [facility] [address] [place] [address] Basic Metabolic Panelon 03-3 Calcium mass conc 8.5 mg/dL Normal 8.4-10.4 [facility] Comment on above: Performed By: #### H EMDF, PT, BMP3M, PHOS3, MG3, CK3 #### [place] [address] [address] [place], [place] #### VD25H #### [place] [address] [place] [address] Glucose mass conc 163 mg/dL High 70-100 [facility] Comment on above: Performed By: #### H EMDF, PT, BMP3M, PHOS3, MG3, CK3 #### [facility] [address] [place] [address] #### VD25H #### [facility] [address] [place] [address] Anion gap molar conc 10 Normal [facility] Comment on above: Performed By: #### H EMDF, PT, BMP3M, PHOS3, MG3, CK3 #### [address] #### VD25H #### [facility] [address] [place] [address] CO2 molar conc 37 mmol/L High 22-30 [facility] Comment on above: Performed By: #### H EMDF, PT, BMP3M, PHOS3, MG3, CK3 #### [address] #### VD25H #### [facility] [address] [place] [address] Creatinine mass conc 0.57 mg/dL Normal 0.52-1.25 [facility] Comment on above: Performed By: #### H EMDF, PT, BMP3M, PHOS3, MG3, CK3 #### [address] #### VD25H #### [facility] [address] [place] [address] GFR/1.73 sq M predicted among blacks MDRD vol rate/area (S/P/Bld) mL/min/{1.73_m2} Normal >60 [facility] Comment on above: Performed By: #### H EMDF, PT, BMP3M, PHOS3, MG3, CK3 #### [address] #### VD25H #### [facility] [address] [place] [address] GFR/1.73 sq M predicted among non-blacks MDRD vol rate/area (S/P/Bld) mL/min/{1.73_m2} Normal >60 [facility] Comment on above: Result Comment: Sour ce- MDRD equation with creatinine calibration to IDMS(NKDEP) eGFR not recommended for drug dose adjustment Performed By: #### H EMDF, PT, BMP3M, PHOS3, MG3, CK3 #### [address] [place], [place] #### VD25H #### [facility] [address] [place] [address] Urea nitrogen mass conc 30 mg/dL High 7-20 [facility] Comment on above: Performed By: #### H EMDF, PT, BMP3M, PHOS3, MG3, CK3 #### [address] #### VD25H #### [facility] [address] [place] [address] Chloride molar conc 95 mmol/L Low 98-107 [facility] Comment on above: Performed By: #### H EMDF, PT, BMP3M, PHOS3, MG3, CK3 #### [address] #### VD25H #### [facility] [address] [place] [address] Potassium molar conc 3.3 mmol/L Low 3.5-5.1 [facility] Comment on above: Performed By: #### H EMDF, PT, BMP3M, PHOS3, MG3, CK3 #### [address] #### VD25H #### [facility] [address] [place] [address] Sodium molar conc 141 mmol/L Normal 135-145 [facility] Comment on above: Performed By: #### H EMDF, PT, BMP3M, PHOS3, MG3, CK3 #### [facility] [address] [place], [place] #### VD25H #### [facility] [address] [place] [address] CR Chest Portableon 07-30-19 19 CR Chest Portable Patient Name: KATHYA HOOPER Diagnostic Radiology Exam Date/Time 07/29/2018 07:01:44 EDT Exam CR Chest Portable Ordering Physician MARIA EUGENIA PEREZ Accession Number [id number] CPT4 Codes 06974 () Reason For Exam ETT placement Report [...] Transcribed Date and Time: 07/29/2018 9:04 Normal [facility] Glucose,Bedsideon 07-29-2018 Glucose mass conc 124 mg/dL High 70-100 [facility] Comment on above: Result Comment: Test performed by glucose meter. Results may be 10%-15% lower than serum/plasma values. (CLIA ID [id number]) Performed By: #### H EMDF, PT, BMP3M, PHOS3, MG3, CK3 #### [facility] [facility] [address] [place], [place] #### VD25H #### [facility] [facility] [address] [place] [address] Glucose mass conc 175 mg/dL High 70-100 [facility] Comment on above: Result Comment: Test performed by glucose meter. Results may be 10%-15% lower than serum/plasma values. (CLIA ID [id number]) Performed By: #### H EMDF, PT, BMP3M, PHOS3, MG3, CK3 #### [facility] [address] [place] [address] #### VD25H #### [employer] [facility] [address] [place], [place] Glucose mass conc 138 mg/dL High 70-100 [facility] Comment on above: Result Comment: Test performed by glucose meter. Results may be 10%-15% lower than serum/plasma values. (CLIA ID [id number]) Performed By: #### H EMDF, PT, BMP3M, PHOS3, MG3, CK3 #### [employer] [address] #### VD25H #### [employer] [facility] [address] [place] [address] Glucose mass conc 147 mg/dL High 70-100 [facility] Comment on above: Result Comment: Test performed by glucose meter. Results may be 10%-15% lower than serum/plasma values. (CLIA ID [id number]) Performed By: #### H EMDF, PT, BMP3M, PHOS3, MG3, CK3 #### [employer] [address] [place] [address] #### VD25H #### [employer] [facility] [address] [place] [address] Hemogram w/ Autodiffon 07-29 Erythrocyte distribution width Ratio (RBC) 13.8 % Normal 11.5-14.5 [facility] [employer] Comment on above: Performed By: #### H EMDF, PT, BMP3M, PHOS3, MG3, CK3 #### [employer] [address] #### VD25H #### [employer] [facility] [address] [place] [address] Hematocrit Volume Fraction (Bld) 32.9 % Low 40.0-52.0 [facility] Comment on above: Performed By: #### H EMDF, PT, BMP3M, PHOS3, MG3, CK3 #### [address] #### VD25H #### [facility] [address] [place] [address] Hemoglobin mass conc (Bld) 11.0 g/dL Low 13.0-18.0 [facility] Comment on above: Performed By: #### H EMDF, PT, BMP3M, PHOS3, MG3, CK3 #### [address] #### VD25H #### [facility] [address] [place] [address] MCH Entitic mass (RBC) 29.0 pg Normal 26.0-34.0 [facility] Comment on above: Performed By: #### H EMDF, PT, BMP3M, PHOS3, MG3, CK3 #### [address] #### VD25H #### [facility] [address] [place] [address] MCHC mass conc (RBC) 33.6 % Normal 32.0-36.0 [facility] Comment on above: Performed By: #### H EMDF, PT, BMP3M, PHOS3, MG3, CK3 #### [address] #### VD25H #### [facility] [address] [place] [address] MCV Entitic volume (RBC) 86.3 fL Normal 80.0-98.0 [facility] Comment on above: Performed By: #### H EMDF, PT, BMP3M, PHOS3, MG3, CK3 #### [address] #### VD25H #### [facility] [address] [place] [address] Platelet mean volume Entitic volume (Bld) 8.1 fL Normal 7.4-10.4 [facility] Comment on above: Performed By: #### H EMDF, PT, BMP3M, PHOS3, MG3, CK3 #### [facility] [address] [place], [place] #### VD25H #### [facility] [address] [place] [address] Platelets #/vol (Bld) 501 10*3/uL High 140-440 [facility] Comment on above: Performed By: #### H EMDF, PT, BMP3M, PHOS3, MG3, CK3 #### [address] #### VD25H #### [facility] [address] [place] [address] RBC #/vol (Bld) 3.81 10*6/uL Low 4.40-5.90 [facility] Comment on above: Performed By: #### H EMDF, PT, BMP3M, PHOS3, MG3, CK3 #### [address] [place], [place] #### VD25H #### [facility] [address] [place] [address] WBC #/vol (Bld) 20.8 10*3/uL High 3.6-10.7 [facility] Comment on above: Performed By: #### H EMDF, PT, BMP3M, PHOS3, MG3, CK3 #### [place] [address] [address] [place], [place] #### VD25H #### [facility] [address] [place] [address] Magnesiumon 07-29-2018 Magnesium mass conc 2.5 mg/dL High 1.6-2.3 [facility] Comment on above: Performed By: #### H EMDF, PT, BMP3M, PHOS3, MG3, CK3 #### [place] [address] [place], [place] #### VD25H #### [facility] [address] [place] [address] Manual Diffon 07-29-2018 Abs Neutrophile Cnt 17.3 10*3/uL High 2.2-8.2 [facility] Comment on above: Performed By: #### H EMDF, PT, BMP3M, PHOS3, MG3, CK3 #### [address] #### VD25H #### [facility] [address] [place] [address] Bands 1 % Normal 0-3 [facility] Comment on above: Performed By: #### H EMDF, PT, BMP3M, PHOS3, MG3, CK3 #### [address] #### VD25H #### [place] [address] [place] [address] Eosinophils #/vol (Bld) 0.6 10*3/uL High 0.0-0.5 [facility] Comment on above: Performed By: #### H EMDF, PT, BMP3M, PHOS3, MG3, CK3 #### [address] #### VD25H #### [place] [address] [place] [address] Eosinophils/100 WBC (Bld) 3 % Normal 1-6 [facility] Comment on above: Performed By: #### H EMDF, PT, BMP3M, PHOS3, MG3, CK3 #### [address] #### VD25H #### [place] [address] [place] [address] Lymphocytes #/vol (Bld) 2.3 10*3/uL Normal 1.1-4.5 [facility] Comment on above: Performed By: #### H EMDF, PT, BMP3M, PHOS3, MG3, CK3 #### [address] #### VD25H #### [facility] [address] [place] [address] Lymphocytes/100 WBC (Bld) 11 % Low 20-40 [facility] Comment on above: Performed By: #### H EMDF, PT, BMP3M, PHOS3, MG3, CK3 #### [place] [address] [address] [place], [place] #### VD25H #### [facility] [address] [place] [address] Metamyelocytes 1 % Abnormal <1 [facility] Comment on above: Performed By: #### H EMDF, PT, BMP3M, PHOS3, MG3, CK3 #### [place] [address] [address] [place], [place] #### VD25H #### [place] [address] [place] [address] Monocytes #/vol (Bld) 0.4 10*3/uL Normal 0.2-1.1 [facility] Comment on above: Performed By: #### H EMDF, PT, BMP3M, PHOS3, MG3, CK3 #### [place] [address] [address] [place], [place] #### VD25H #### [facility] [address] [place] [address] Monocytes/100 WBC (Bld) 2 % Normal 2-10 [facility] Comment on above: Performed By: #### H EMDF, PT, BMP3M, PHOS3, MG3, CK3 #### [place] [address] [address] [place], [place] #### VD25H #### [facility] [address] [place] [address] RBC morphology finding Nom (Bld) See Prev Normal [facility] Comment on above: Performed By: #### H EMDF, PT, BMP3M, PHOS3, MG3, CK3 #### [place] [address] [address] [place], [place] #### VD25H #### [facility] [address] [place] [address] Seg Neutrophils 82 % High 40-80 [facility] Comment on above: Performed By: #### H EMDF, PT, BMP3M, PHOS3, MG3, CK3 #### [facility] [address] [place], [place] #### VD25H #### [facility] [address] [place] [address] Abs Baso Cnt 0.0 10*3/uL Normal 0.0-0.2 [facility] Comment on above: Performed By: #### H EMDF, PT, BMP3M, PHOS3, MG3, CK3 #### [place] [address] [address] [place], [place] #### VD25H #### [facility] [address] [place] [address] Basophils/100 WBC (Bld) 0 % Normal 0-2 [facility] Comment on above: Performed By: #### H EMDF, PT, BMP3M, PHOS3, MG3, CK3 #### [place] [address] [address] [place] #### VD25H #### [facility] [address] [place] [address] Cells counted 100 Normal [facility] Comment on above: Performed By: #### H EMDF, PT, BMP3M, PHOS3, MG3, CK3 #### [place] [address] [address] [place], [place] #### VD25H #### [facility] [address] [place] [address] Phosphoruson 07-29-2018 Phosphate mass conc 4.2 mg/dL Normal 2.5-4.5 [facility] Comment on above: Performed By: #### H EMDF, PT, BMP3M, PHOS3, MG3, CK3 #### [place] [address] [address] [place], [place] #### VD25H #### [facility] [address] [place] [address] Procalcitoninon 07-29-2018 Protein mass conc 0.11 ng/mL Abnormal <0.10 [facility] Comment on above: Performed By: #### H EMDF, PT, BMP3M, PHOS3, MG3, CK3 #### [address] #### VD25H #### [facility] [address] [place] [address] Interpretation See Below Normal [facility] Comment on above: Result Comment: PCT <0.50 = Low risk of severe sepsis and/or septic shock. PCT >2.00 = High risk of severe sepsis and/or septic shock. Performed By: #### H EMDF, PT, BMP3M, PHOS3, MG3, CK3 #### [address] #### VD25H #### [facility] [address] [place] [address] Vancomycin Troughon 07-30-19 19 Vancomycin Trough 12.2 ug/mL Low 15.0-20.0 [facility] Comment on above: Result Comment: . Performed By: #### H EMDF, PT, BMP3M, PHOS3, MG3, CK3 #### [address] #### VD25H #### [facility] [address] [place] [address] Basic Metabolic Panelon 07-01 Calcium mass conc 8.6 mg/dL Normal 8.4-10.4 [facility] Comment on above: Performed By: #### H EMDF, PT, BMP3M, PHOS3, MG3, CK3 #### [address] #### VD25H #### [facility] [address] [place] [address] Glucose mass conc 158 mg/dL High 70-100 [facility] Comment on above: Performed By: #### H EMDF, PT, BMP3M, PHOS3, MG3, CK3 #### [facility] [address] [facility] [place] [address] #### VD25H #### [facility] [address] [place] [address] Urea nitrogen mass conc 29 mg/dL High 7-20 [facility] Comment on above: Performed By: #### H EMDF, PT, BMP3M, PHOS3, MG3, CK3 #### [facility] [address] [facility] [place] [address] #### VD25H #### [facility] [address] [place] [address] Anion gap molar conc 9 Normal [facility] Comment on above: Performed By: #### H EMDF, PT, BMP3M, PHOS3, MG3, CK3 #### [place] [address] [address] [facility] [place] [address] #### VD25H #### [facility] [address] [place] [address] CO2 molar conc 32 mmol/L High 22-30 [facility] Comment on above: Performed By: #### H EMDF, PT, BMP3M, PHOS3, MG3, CK3 #### [place] [address] [address] [facility] [place] [address] #### VD25H #### [facility] [address] [place] [address] Creatinine mass conc 0.61 mg/dL Normal 0.52-1.25 [facility] Comment on above: Performed By: #### H EMDF, PT, BMP3M, PHOS3, MG3, CK3 #### [place] [address] [address] [facility] [place] [address] #### VD25H #### [facility] [address] [place] [address] GFR/1.73 sq M predicted among blacks MDRD vol rate/area (S/P/Bld) mL/min/{1.73_m2} Normal >60 [facility] Comment on above: Performed By: #### H EMDF, PT, BMP3M, PHOS3, MG3, CK3 #### [place] [address] [address] [place], [place] #### VD25H #### [facility] [address] [place] [address] GFR/1.73 sq M predicted among non-blacks MDRD vol rate/area (S/P/Bld) mL/min/{1.73_m2} Normal >60 [facility] Comment on above: Result Comment: Sour ce- MDRD equation with creatinine calibration to IDMS(NKDEP) eGFR not recommended for drug dose adjustment Performed By: #### H EMDF, PT, BMP3M, PHOS3, MG3, CK3 #### [place] [address] [address] [facility], [place] #### VD25H #### [facility] [address] [place] [address] Potassium molar conc 3.6 mmol/L Normal 3.5-5.1 [facility] Comment on above: Performed By: #### H EMDF, PT, BMP3M, PHOS3, MG3, CK3 #### [place] [address] [address] [facility], [place] #### VD25H #### [facility] [address] [place] [address] Chloride molar conc 100 mmol/L Normal 98-107 [facility] Comment on above: Performed By: #### H EMDF, PT, BMP3M, PHOS3, MG3, CK3 #### [place] [address] [address] [facility], [place] #### VD25H #### [facility] [address] [place] [address] Sodium molar conc 141 mmol/L Normal 135-145 [facility] Comment on above: Performed By: #### H EMDF, PT, BMP3M, PHOS3, MG3, CK3 #### [address] [facility], [place] #### VD25H #### [facility] [address] [place] [address] CR Chest Portableon 07-29-19 19 CR Chest Portable Patient Name: KATHYA HOOPER Diagnostic Radiology Exam Date/Time 07/28/2018 07:09:40 EDT Exam CR Chest Portable Ordering Physician MARIA EUGENIA PEREZ Accession Number [id number] CPT4 Codes 48868 () Reason For Exam ETT placement Report [...] Transcribed Date and Time: 07/28/2018 7:16 Normal [facility] Glucose,Bedsideon 07-28-2018 Glucose mass conc 149 mg/dL High 70-100 [facility] Comment on above: Result Comment: Test performed by glucose meter. Results may be 10%-15% lower than serum/plasma values. (CLIA ID [id number]) Performed By: #### H EMDF, PT, BMP3M, PHOS3, MG3, CK3 #### [facility] [address] [place] [address] #### VD25H #### [facility] [address] [place] [address] Glucose mass conc 142 mg/dL High 70-100 [facility] Comment on above: Result Comment: Test performed by glucose meter. Results may be 10%-15% lower than serum/plasma values. (CLIA ID [id number]) Performed By: #### H EMDF, PT, BMP3M, PHOS3, MG3, CK3 #### [address] [place], [place] #### VD25H #### [facility] [address] [place] [address] Hemogram w/ Autodiffon 07-28 Erythrocyte distribution width Ratio (RBC) 13.8 % Normal 11.5-14.5 [facility] Comment on above: Performed By: #### H EMDF, PT, BMP3M, PHOS3, MG3, CK3 #### [place] [address] [address] [place], [place] #### VD25H #### [facility] [address] [place] [address] Hematocrit Volume Fraction (Bld) 33.0 % Low 40.0-52.0 [facility] Comment on above: Performed By: #### H EMDF, PT, BMP3M, PHOS3, MG3, CK3 #### [address] #### VD25H #### [facility] [address] [place] [address] Hemoglobin mass conc (Bld) 11.0 g/dL Low 13.0-18.0 [facility] Comment on above: Performed By: #### H EMDF, PT, BMP3M, PHOS3, MG3, CK3 #### [address] #### VD25H #### [facility] [address] [place] [address] MCH Entitic mass (RBC) 28.7 pg Normal 26.0-34.0 [facility] Comment on above: Performed By: #### H EMDF, PT, BMP3M, PHOS3, MG3, CK3 #### [address] #### VD25H #### [facility] [address] [place] [address] MCHC mass conc (RBC) 33.4 % Normal 32.0-36.0 [facility] Comment on above: Performed By: #### H EMDF, PT, BMP3M, PHOS3, MG3, CK3 #### [address] [place], [place] #### VD25H #### [facility] [address] [place] [address] MCV Entitic volume (RBC) 86.0 fL Normal 80.0-98.0 [facility] Comment on above: Performed By: #### H EMDF, PT, BMP3M, PHOS3, MG3, CK3 #### [address] [place], [place] #### VD25H #### [facility] [address] [place] [address] Platelet mean volume Entitic volume (Bld) 8.4 fL Normal 7.4-10.4 [facility] Comment on above: Performed By: #### H EMDF, PT, BMP3M, PHOS3, MG3, CK3 #### [address] #### VD25H #### [facility] [address] [place] [address] Platelets #/vol (Bld) 477 10*3/uL High 140-440 [facility] Comment on above: Performed By: #### H EMDF, PT, BMP3M, PHOS3, MG3, CK3 #### [address] #### VD25H #### [facility] [address] [place] [address] RBC #/vol (Bld) 3.84 10*6/uL Low 4.40-5.90 [facility] Comment on above: Performed By: #### H EMDF, PT, BMP3M, PHOS3, MG3, CK3 #### [address] #### VD25H #### [facility] [address] [place] [address] WBC #/vol (Bld) 18.1 10*3/uL High 3.6-10.7 [facility] Comment on above: Performed By: #### H EMDF, PT, BMP3M, PHOS3, MG3, CK3 #### [address] #### VD25H #### [facility] [address] [place] [address] Magnesiumon 07-28-2018 Magnesium mass conc 2.4 mg/dL High 1.6-2.3 [facility] Comment on above: Performed By: #### H EMDF, PT, BMP3M, PHOS3, MG3, CK3 #### [address] #### VD25H #### [facility] [address] [place] [address] Manual Diffon 07-28-2018 Abs Neutrophile Cnt 14.8 10*3/uL High 2.2-8.2 [facility] Comment on above: Performed By: #### H EMDF, PT, BMP3M, PHOS3, MG3, CK3 #### [address] #### VD25H #### [facility] [address] [place] [address] Anisocytosis Ql (Bld) Slight Normal [facility] Comment on above: Performed By: #### H EMDF, PT, BMP3M, PHOS3, MG3, CK3 #### [address] #### VD25H #### [facility] [address] [place] [address] Hypochromia Slight Normal [facility] Comment on above: Performed By: #### H EMDF, PT, BMP3M, PHOS3, MG3, CK3 #### [address] #### VD25H #### [facility] [address] [place] [address] Lymphocytes #/vol (Bld) 1.3 10*3/uL Normal 1.1-4.5 [facility] Comment on above: Performed By: #### H EMDF, PT, BMP3M, PHOS3, MG3, CK3 #### [facility] [address] [place], [place] #### VD25H #### [facility] [address] [place] [address] Lymphocytes/100 WBC (Bld) 7 % Low 20-40 [facility] Comment on above: Performed By: #### H EMDF, PT, BMP3M, PHOS3, MG3, CK3 #### [place] [address] [address] [place], [place] #### VD25H #### [facility] [address] [place] [address] Microcytosis Slight Normal [facility] Comment on above: Performed By: #### H EMDF, PT, BMP3M, PHOS3, MG3, CK3 #### [place] [address] [address] [place], [place] #### VD25H #### [facility] [address] [place] [address] Monocytes #/vol (Bld) 2.0 10*3/uL High 0.2-1.1 [facility] Comment on above: Performed By: #### H EMDF, PT, BMP3M, PHOS3, MG3, CK3 #### [place] [address] [address] [place], [place] #### VD25H #### [facility] [address] [place] [address] Monocytes/100 WBC (Bld) 11 % High 2-10 [facility] Comment on above: Performed By: #### H EMDF, PT, BMP3M, PHOS3, MG3, CK3 #### [place] [address] [address] [place], [place] #### VD25H #### [facility] [address] [place] [address] RBC morphology finding Nom (Bld) ABNORMAL Normal [facility] Comment on above: Performed By: #### H EMDF, PT, BMP3M, PHOS3, MG3, CK3 #### [address] #### VD25H #### [facility] [address] [place] [address] Seg Neutrophils 82 % High 40-80 [facility] Comment on above: Performed By: #### H EMDF, PT, BMP3M, PHOS3, MG3, CK3 #### [address] [place], [place] #### VD25H #### [facility] [address] [place] [address] Abs Baso Cnt 0.0 10*3/uL Normal 0.0-0.2 [facility] Comment on above: Performed By: #### H EMDF, PT, BMP3M, PHOS3, MG3, CK3 #### [address] #### VD25H #### [facility] [address] [place] [address] Bands 0 % Normal 0-3 [facility] Comment on above: Performed By: #### H EMDF, PT, BMP3M, PHOS3, MG3, CK3 #### [address] #### VD25H #### [facility] [address] [place] [address] Basophils/100 WBC (Bld) 0 % Normal 0-2 [facility] Comment on above: Performed By: #### H EMDF, PT, BMP3M, PHOS3, MG3, CK3 #### [address] #### VD25H #### [facility] [address] [place] [address] Cells counted 100 Normal [facility] Comment on above: Performed By: #### H EMDF, PT, BMP3M, PHOS3, MG3, CK3 #### [address] [place], [place] #### VD25H #### [facility] [address] [place] [address] Eosinophils #/vol (Bld) 0.0 10*3/uL Normal 0.0-0.5 [facility] Comment on above: Performed By: #### H EMDF, PT, BMP3M, PHOS3, MG3, CK3 #### [address] #### VD25H #### [facility] [address] [place] [address] Eosinophils/100 WBC (Bld) 0 % Low 1-6 [facility] Comment on above: Performed By: #### H EMDF, PT, BMP3M, PHOS3, MG3, CK3 #### [address] #### VD25H #### [facility] [address] [place] [address] Phosphoruson 07-28-2018 Phosphate mass conc 4.4 mg/dL Normal 2.5-4.5 [facility] Comment on above: Performed By: #### H EMDF, PT, BMP3M, PHOS3, MG3, CK3 #### [address] #### VD25H #### [facility] [address] [place] [address] Vancomycin Troughon 07-29-19 19 Vancomycin Trough 12.9 ug/mL Low 15.0-20.0 [facility] Comment on above: Result Comment: . Performed By: #### H EMDF, PT, BMP3M, PHOS3, MG3, CK3 #### [address] #### VD25H #### [facility] [address] [place] [address] Arterial Blood Gaseson 07-27 CO2 molar conc 28.4 mmol/L High 23.0-27.0 [facility] Comment on above: Performed By: #### H EMDF, PT, BMP3M, PHOS3, MG3, CK3 #### [place] [address] [address] [place], [place] #### VD25H #### [facility] [address] [place] [address] HCO3 molar conc (Bld) 27.2 mmol/L High 21.0-25.0 [facility] Comment on above: Performed By: #### H EMDF, PT, BMP3M, PHOS3, MG3, CK3 #### [place] [address] [address] [place], [place] #### VD25H #### [facility] [address] [place] [address] Hemoglobin mass conc (Bld) 11.7 g/dL Normal [facility] Comment on above: Performed By: #### H EMDF, PT, BMP3M, PHOS3, MG3, CK3 #### [place] [address] [address] [place] #### VD25H #### [facility] [address] [place] [address] Oxygen ppres (Bld) 91.3 mm[Hg] Normal 80.0-100.0 [facility] Comment on above: Performed By: #### H EMDF, PT, BMP3M, PHOS3, MG3, CK3 #### [place] [address] [address] [place] #### VD25H #### [facility] [address] [place] [address] Oxygen saturation in Blood 96.9 % Normal 95.0-100.0 [facility] Comment on above: Performed By: #### H EMDF, PT, BMP3M, PHOS3, MG3, CK3 #### [address] [place], [place] #### VD25H #### [facility] [address] [facility] [place] [address] pCO2 39.0 mm[Hg] Normal 35.0-45.0 [facility] Comment on above: Performed By: #### H EMDF, PT, BMP3M, PHOS3, MG3, CK3 #### [facility] [address] [place], [place] #### VD25H #### [facility] [address] [place] [address] pH (Bld) 7.461 High 7.350-7.450 [facility] Comment on above: Performed By: #### H EMDF, PT, BMP3M, PHOS3, MG3, CK3 #### [place] [address] [address] [place], [place] #### VD25H #### [facility] [address] [place] [address] Std Base Excess 3.2 mmol/L High -3.0-3.0 [facility] Comment on above: Performed By: #### H EMDF, PT, BMP3M, PHOS3, MG3, CK3 #### [place] [address] [address] [place], [place] #### VD25H #### [facility] [address] [place] [address] FIO2 No data Normal [facility] Comment on above: Performed By: #### H EMDF, PT, BMP3M, PHOS3, MG3, CK3 #### [place] [address] [place], [place] #### VD25H #### [facility] [address] [place] [address] Basic Metabolic Panelon 03-2 Anion gap molar conc 12 Normal [facility] Comment on above: Performed By: #### H EMDF, PT, BMP3M, PHOS3, MG3, CK3 #### [place] [address] [address] [place], [place] #### VD25H #### [facility] [address] [place] [address] Calcium mass conc 8.3 mg/dL Low 8.4-10.4 [facility] Comment on above: Performed By: #### H EMDF, PT, BMP3M, PHOS3, MG3, CK3 #### [address] [place], [place] #### VD25H #### [facility] [address] [place] [address] CO2 molar conc 28 mmol/L Normal 22-30 [facility] Comment on above: Performed By: #### H EMDF, PT, BMP3M, PHOS3, MG3, CK3 #### [place] [address] [address] [place], [place] #### VD25H #### [facility] [address] [place] [address] Glucose mass conc 156 mg/dL High 70-100 [facility] Comment on above: Performed By: #### H EMDF, PT, BMP3M, PHOS3, MG3, CK3 #### [address] #### VD25H #### [facility] [address] [place] [address] Urea nitrogen mass conc 21 mg/dL High 7-20 [facility] Comment on above: Performed By: #### H EMDF, PT, BMP3M, PHOS3, MG3, CK3 #### [address] #### VD25H #### [facility] [address] [place] [address] Creatinine mass conc 0.53 mg/dL Normal 0.52-1.25 [facility] Comment on above: Performed By: #### H EMDF, PT, BMP3M, PHOS3, MG3, CK3 #### [address] #### VD25H #### [facility] [address] [place] [address] GFR/1.73 sq M predicted among blacks MDRD vol rate/area (S/P/Bld) mL/min/{1.73_m2} Normal >60 [facility] Comment on above: Performed By: #### H EMDF, PT, BMP3M, PHOS3, MG3, CK3 #### [facility] [address] [place] #### VD25H #### [facility] [address] [place] [address] GFR/1.73 sq M predicted among non-blacks MDRD vol rate/area (S/P/Bld) mL/min/{1.73_m2} Normal >60 [facility] Comment on above: Result Comment: Sour ce- MDRD equation with creatinine calibration to IDMS(NKDEP) eGFR not recommended for drug dose adjustment Performed By: #### H EMDF, PT, BMP3M, PHOS3, MG3, CK3 #### [place] [address] [address] [place] #### VD25H #### [facility] [address] [place] [address] Potassium molar conc 3.2 mmol/L Low 3.5-5.1 [facility] Comment on above: Performed By: #### H EMDF, PT, BMP3M, PHOS3, MG3, CK3 #### [place] [address] [address] [place] #### VD25H #### [facility] [address] [place] [address] Chloride molar conc 99 mmol/L Normal 98-107 [facility] Comment on above: Performed By: #### H EMDF, PT, BMP3M, PHOS3, MG3, CK3 #### [address] [place], [place] #### VD25H #### [facility] [address] [place] [address] Sodium molar conc 139 mmol/L Normal 135-145 [facility] Comment on above: Performed By: #### H EMDF, PT, BMP3M, PHOS3, MG3, CK3 #### [place] [address] [place], [place] #### VD25H #### [facility] [address] [place] [address] CR Chest Portableon 07-28-19 19 CR Chest Portable Patient Name: KATHYA HOOPER Diagnostic Radiology Exam Date/Time 07/27/2018 07:08:59 EDT Exam CR Chest Portable Ordering Physician MARIA EUGENIA PEREZ Accession Number [id number] CPT4 Codes 05802 () Reason For Exam ETT placement Report [...] Transcribed Date and Time: 07/27/2018 8:02 Normal [facility] Glucose,Bedsideon 07-27-2018 Glucose mass conc 151 mg/dL High 70-100 [facility] Comment on above: Result Comment: Test performed by glucose meter. Results may be 10%-15% lower than serum/plasma values. (CLIA ID [id number]) Performed By: #### H EMDF, PT, BMP3M, PHOS3, MG3, CK3 #### [facility] [employer] [address] [place] [address] #### VD25H #### [facility] [employer] [facility] [address] [place] [address] Glucose mass conc 131 mg/dL High 70-100 [facility] Comment on above: Result Comment: Test performed by glucose meter. Results may be 10%-15% lower than serum/plasma values. (CLIA ID [id number]) Performed By: #### H EMDF, PT, BMP3M, PHOS3, MG3, CK3 #### [employer] [address] [place], [place] #### VD25H #### [employer] [address] [place] [address] Glucose mass conc 123 mg/dL High 70-100 [facility] Comment on above: Result Comment: Test performed by glucose meter. Results may be 10%-15% lower than serum/plasma values. (CLIA ID [id number]) Performed By: #### H EMDF, PT, BMP3M, PHOS3, MG3, CK3 #### [employer] [address] [place] [address] #### VD25H #### [employer] [facility] [address] [place] [address] Glucose mass conc 133 mg/dL High 70-100 [facility] Comment on above: Result Comment: Test performed by glucose meter. Results may be 10%-15% lower than serum/plasma values. (CLIA ID [id number]) Performed By: #### H EMDF, PT, BMP3M, PHOS3, MG3, CK3 #### [employer] [facility] [address] #### VD25H #### [employer] [address] [place] [address] Hemogram w/ Autodiffon 07-27 Erythrocyte distribution width Ratio (RBC) 13.5 % Normal 11.5-14.5 [facility] Comment on above: Performed By: #### H EMDF, PT, BMP3M, PHOS3, MG3, CK3 #### [employer] [address] #### VD25H #### [employer] [address] [place] [address] Hematocrit Volume Fraction (Bld) 32.5 % Low 40.0-52.0 [facility] Comment on above: Performed By: #### H EMDF, PT, BMP3M, PHOS3, MG3, CK3 #### [address] #### VD25H #### [facility] [address] [place] [address] Hemoglobin mass conc (Bld) 11.1 g/dL Low 13.0-18.0 [facility] Comment on above: Performed By: #### H EMDF, PT, BMP3M, PHOS3, MG3, CK3 #### [address] #### VD25H #### [facility] [address] [place] [address] MCH Entitic mass (RBC) 29.2 pg Normal 26.0-34.0 [facility] Comment on above: Performed By: #### H EMDF, PT, BMP3M, PHOS3, MG3, CK3 #### [address] #### VD25H #### [place] [address] [place] [address] MCHC mass conc (RBC) 34.1 % Normal 32.0-36.0 [facility] Comment on above: Performed By: #### H EMDF, PT, BMP3M, PHOS3, MG3, CK3 #### [address] #### VD25H #### [facility] [address] [place] [address] MCV Entitic volume (RBC) 85.7 fL Normal 80.0-98.0 [facility] Comment on above: Performed By: #### H EMDF, PT, BMP3M, PHOS3, MG3, CK3 #### [address] #### VD25H #### [facility] [address] [place] [address] Platelet mean volume Entitic volume (Bld) 7.9 fL Normal 7.4-10.4 [facility] Comment on above: Performed By: #### H EMDF, PT, BMP3M, PHOS3, MG3, CK3 #### [place] [address] [address] [place], [place] #### VD25H #### [facility] [address] [place] [address] Platelets #/vol (Bld) 466 10*3/uL High 140-440 [facility] Comment on above: Performed By: #### H EMDF, PT, BMP3M, PHOS3, MG3, CK3 #### [place] [address] [address] [place], [place] #### VD25H #### [facility] [address] [place] RBC #/vol (Bld) 3.79 10*6/uL Low 4.40-5.90 [facility] Comment on above: Performed By: #### H EMDF, PT, BMP3M, PHOS3, MG3, CK3 #### [place] [address] [address] [place], [place] #### VD25H #### [facility] [address] [place] [address] WBC #/vol (Bld) 18.7 10*3/uL High 3.6-10.7 [facility] Comment on above: Performed By: #### H EMDF, PT, BMP3M, PHOS3, MG3, CK3 #### [address] #### VD25H #### [facility] [address] [place] [address] Magnesiumon 07-27-2018 Magnesium mass conc 2.1 mg/dL Normal 1.6-2.3 [facility] Comment on above: Performed By: #### H EMDF, PT, BMP3M, PHOS3, MG3, CK3 #### [address] [place], [place] #### VD25H #### [place] [address] [place] [address] Manual Diffon 07-27-2018 RBC morphology finding Nom (Bld) Normal Normal [facility] Comment on above: Performed By: #### H EMDF, PT, BMP3M, PHOS3, MG3, CK3 #### [facility] [address] [place], [place] #### VD25H #### [facility] [address] [place] [address] Abs Neutrophile Cnt 14.2 10*3/uL High 2.2-8.2 [facility] Comment on above: Performed By: #### H EMDF, PT, BMP3M, PHOS3, MG3, CK3 #### [place] [address] [address] [place], [place] #### VD25H #### [facility] [address] [place] [address] Atypical Lymphocytes 2 % Abnormal <1 [facility] Comment on above: Performed By: #### H EMDF, PT, BMP3M, PHOS3, MG3, CK3 #### [place] [address] [address] [place], [place] #### VD25H #### [facility] [address] [place] [address] Bands 5 % High 0-3 [facility] Comment on above: Performed By: #### H EMDF, PT, BMP3M, PHOS3, MG3, CK3 #### [place] [address] [address] [place], [place] #### VD25H #### [facility] [address] [place] [address] Eosinophils #/vol (Bld) 0.6 10*3/uL High 0.0-0.5 [facility] Comment on above: Performed By: #### H EMDF, PT, BMP3M, PHOS3, MG3, CK3 #### [place] [address] [address] [place], [place] #### VD25H #### [facility] [address] [place] [address] Eosinophils/100 WBC (Bld) 3 % Normal 1-6 [facility] Comment on above: Performed By: #### H EMDF, PT, BMP3M, PHOS3, MG3, CK3 #### [facility] [address] [place], [place] #### VD25H #### [facility] [address] [place] [address] Lymphocytes #/vol (Bld) 2.1 10*3/uL Normal 1.1-4.5 [facility] Comment on above: Performed By: #### H EMDF, PT, BMP3M, PHOS3, MG3, CK3 #### [facility] [address] [place], [place] #### VD25H #### [facility] [address] [place] [address] Lymphocytes/100 WBC (Bld) 11 % Low 20-40 [facility] Comment on above: Performed By: #### H EMDF, PT, BMP3M, PHOS3, MG3, CK3 #### [place] [address] [address] [place], [place] #### VD25H #### [facility] [address] [place] [address] Monocytes #/vol (Bld) 1.5 10*3/uL High 0.2-1.1 [facility] Comment on above: Performed By: #### H EMDF, PT, BMP3M, PHOS3, MG3, CK3 #### [place] [address] [address] [place], [place] #### VD25H #### [facility] [address] [place] [address] Monocytes/100 WBC (Bld) 8 % Normal 2-10 [facility] Comment on above: Performed By: #### H EMDF, PT, BMP3M, PHOS3, MG3, CK3 #### [place] [address] [address] [place], [place] #### VD25H #### [facility] [address] [place] [address] NRBC 1 /100{WBCs} High -1-0 [facility] Comment on above: Result Comment: Newb orn (<60 days) 1-10 Adult <1 Performed By: #### H EMDF, PT, BMP3M, PHOS3, MG3, CK3 #### [address] [place], [place] #### VD25H #### [facility] [address] [place] [address] Seg Neutrophils 71 % Normal 40-80 [facility] Comment on above: Performed By: #### H EMDF, PT, BMP3M, PHOS3, MG3, CK3 #### [place] [address] [address] [place], [place] #### VD25H #### [facility] [address] [place] [address] Abs Baso Cnt 0.0 10*3/uL Normal 0.0-0.2 [facility] Comment on above: Performed By: #### H EMDF, PT, BMP3M, PHOS3, MG3, CK3 #### [place] [address] [address] [place], [place] #### VD25H #### [facility] [address] [place] [address] Basophils/100 WBC (Bld) 0 % Normal 0-2 [facility] Comment on above: Performed By: #### H EMDF, PT, BMP3M, PHOS3, MG3, CK3 #### [address] #### VD25H #### [facility] [address] [place] [address] Cells counted 100 Normal [facility] Comment on above: Performed By: #### H EMDF, PT, BMP3M, PHOS3, MG3, CK3 #### [address] #### VD25H #### [facility] [address] [place] [address] Phosphoruson 07-27-2018 Phosphate mass conc 3.0 mg/dL Normal 2.5-4.5 [facility] Comment on above: Performed By: #### H EMDF, PT, BMP3M, PHOS3, MG3, CK3 #### [facility] [employer] [facility] [address] [place] [address] #### VD25H #### [facility] [employer] [address] [place] [address] VL Venous Duplex US Lower Ex t Bilateralon 07-27-2018 VL Venous Duplex US Lower Ext Bilateral Patient Name: KATHYA HOOPER Ultrasound Exam Date/Time 07/27/2018 10:56:18 EDT Exam VL Venous Duplex US Lower Ext Bilateral Ordering Physician ETIENNE MARTÍNEZ JULIE Accession Number [id number] CPT4 Codes 46503 () Reason For Exam edema Report [facility] --- Lower Extremity Venous Duplex Report Patient Name: Kathya Hooper : 1955 Study Date: 07/27/2018 W (63yrs) Age: 63 Account: [id number] Gender: M Loc: T209 BP: Ordering: Yesenia Martínez Technologist: Ordering Physician: Yesenia Martínez Database Analyst: Mary Man Lissette Interpreting Physician: Ricardo Hall MD --- Location: [facility] --- INDICATIONS: Bilateral leg edema. --- [...] performed. The images were obtained using a [employer] E9 vascular ultrasound machine. The study was [...] --+ Electronically signed by: Ricardo Hall MD [id number] Final Dictated: 07/27/2018 12:55 pm Dictating Physician: RICARDO HALL Signed Date and Time: 07/27/2018 12:55 pm Signed by: RICARDO HALL Normal [facility] Basic Metabolic Panelon 06-30 Calcium mass conc 7.9 mg/dL Low 8.4-10.4 [facility] Comment on above: Performed By: #### H EMDF, PT, BMP3M, PHOS3, MG3, CK3 #### [address] #### VD25H #### [facility] [address] [place] [facility] [address] Anion gap molar conc 9 Normal [facility] Comment on above: Performed By: #### H EMDF, PT, BMP3M, PHOS3, MG3, CK3 #### [address] #### VD25H #### [facility] [address] [place] [address] CO2 molar conc 24 mmol/L Normal 22-30 [facility] Comment on above: Performed By: #### H EMDF, PT, BMP3M, PHOS3, MG3, CK3 #### [address] #### VD25H #### [facility] [address] [place] [address] Creatinine mass conc 0.54 mg/dL Normal 0.52-1.25 [facility] Comment on above: Performed By: #### H EMDF, PT, BMP3M, PHOS3, MG3, CK3 #### [facility] [address] [place] [address] #### VD25H #### [facility] [address] [place] [address] GFR/1.73 sq M predicted among blacks MDRD vol rate/area (S/P/Bld) mL/min/{1.73_m2} Normal >60 [facility] Comment on above: Performed By: #### H EMDF, PT, BMP3M, PHOS3, MG3, CK3 #### [place] [address] [place], [place] #### VD25H #### [facility] [address] [place] [address] GFR/1.73 sq M predicted among non-blacks MDRD vol rate/area (S/P/Bld) mL/min/{1.73_m2} Normal >60 [facility] Comment on above: Result Comment: Sour ce- MDRD equation with creatinine calibration to IDMS(NKDEP) eGFR not recommended for drug dose adjustment Performed By: #### H EMDF, PT, BMP3M, PHOS3, MG3, CK3 #### [place] [address] [place], [place] #### VD25H #### [facility] [address] [place] [address] Glucose mass conc 166 mg/dL High 70-100 [facility] Comment on above: Performed By: #### H EMDF, PT, BMP3M, PHOS3, MG3, CK3 #### [place] [address] [facility] [place] [place] #### VD25H #### [facility] [address] [place] [address] Urea nitrogen mass conc 21 mg/dL High 7-20 [facility] Comment on above: Performed By: #### H EMDF, PT, BMP3M, PHOS3, MG3, CK3 #### [place] [address] [facility] [place] [place] #### VD25H #### [facility] [address] [place] [address] Chloride molar conc 107 mmol/L Normal 98-107 [facility] Comment on above: Performed By: #### H EMDF, PT, BMP3M, PHOS3, MG3, CK3 #### [facility] [address] [place], [place] #### VD25H #### [facility] [address] [place] [address] Potassium molar conc 3.7 mmol/L Normal 3.5-5.1 [facility] Comment on above: Performed By: #### H EMDF, PT, BMP3M, PHOS3, MG3, CK3 #### [facility] [address] [place], [place] #### VD25H #### [facility] [address] [place] [address] Sodium molar conc 140 mmol/L Normal 135-145 [facility] Comment on above: Performed By: #### H EMDF, PT, BMP3M, PHOS3, MG3, CK3 #### [facility] [address] [place], [place] #### VD25H #### [facility] [address] [place] [address] CR Chest Portableon 07-27-19 19 CR Chest Portable Patient Name: KATHYA HOOPER Diagnostic Radiology Exam Date/Time 07/26/2018 06:06:25 EDT Exam CR Chest Portable Ordering Physician MARIA EUGENIA PEREZ Accession Number [id number] CPT4 Codes 64093 () Reason For Exam ETT placement Report [...] Transcribed Date and Time: 07/26/2018 9:15 [facility]ucose,Bedsideon 07-26-2018 Glucose mass conc 160 mg/dL High 70-100 [facility] Comment on above: Result Comment: Test performed by glucose meter. Results may be 10%-15% lower than serum/plasma values. (CLIA ID [id number]) Performed By: #### H EMDF, PT, BMP3M, PHOS3, MG3, CK3 #### [employer] [address], [place] #### VD25H #### [employer] [address] [place] [address] Glucose mass conc 166 mg/dL High 70-100 [facility] Comment on above: Result Comment: Test performed by glucose meter. Results may be 10%-15% lower than serum/plasma values. (CLIA ID [id number]) Performed By: #### H EMDF, PT, BMP3M, PHOS3, MG3, CK3 #### [employer] [address], [place] #### VD25H #### [employer] [address] [place] [address] Glucose mass conc 183 mg/dL High 70-100 [facility] Comment on above: Result Comment: Test performed by glucose meter. Results may be 10%-15% lower than serum/plasma values. (CLIA ID [id number]) Performed By: #### H EMDF, PT, BMP3M, PHOS3, MG3, CK3 #### [employer] [address] [place], [place] #### VD25H #### [employer] [address] [facility] [place] [address] Glucose mass conc 151 mg/dL High 70-100 [facility] Comment on above: Result Comment: Test performed by glucose meter. Results may be 10%-15% lower than serum/plasma values. (CLIA ID [id number]) Performed By: #### H EMDF, PT, BMP3M, PHOS3, MG3, CK3 #### [address] #### VD25H #### [place] [address] [place] [address] Hemogram w/ Autodiffon 07-26 Erythrocyte distribution width Ratio (RBC) 13.7 % Normal 11.5-14.5 [facility] Comment on above: Performed By: #### H EMDF, PT, BMP3M, PHOS3, MG3, CK3 #### [address] #### VD25H #### [address] [place] [address] Hematocrit Volume Fraction (Bld) 31.1 % Low 40.0-52.0 [facility] Comment on above: Performed By: #### H EMDF, PT, BMP3M, PHOS3, MG3, CK3 #### [address] #### VD25H #### [address] [facility] [place] [address] Hemoglobin mass conc (Bld) 10.6 g/dL Low 13.0-18.0 [facility] Comment on above: Performed By: #### H EMDF, PT, BMP3M, PHOS3, MG3, CK3 #### [address] #### VD25H #### [place] [address] [place] [address] MCH Entitic mass (RBC) 29.2 pg Normal 26.0-34.0 [facility] Comment on above: Performed By: #### H EMDF, PT, BMP3M, PHOS3, MG3, CK3 #### [address] [place], [place] #### VD25H #### [facility] [address] [place] [address] MCHC mass conc (RBC) 34.0 % Normal 32.0-36.0 [facility] Comment on above: Performed By: #### H EMDF, PT, BMP3M, PHOS3, MG3, CK3 #### [address] [place], [place] #### VD25H #### [facility] [address] [place] [address] MCV Entitic volume (RBC) 86.1 fL Normal 80.0-98.0 [facility] Comment on above: Performed By: #### H EMDF, PT, BMP3M, PHOS3, MG3, CK3 #### [address] #### VD25H #### [facility] [address] [place] [address] Platelet mean volume Entitic volume (Bld) 8.3 fL Normal 7.4-10.4 [facility] Comment on above: Performed By: #### H EMDF, PT, BMP3M, PHOS3, MG3, CK3 #### [address] #### VD25H #### [facility] [address] [place] [address] Platelets #/vol (Bld) 364 10*3/uL Normal 140-440 [facility] Comment on above: Performed By: #### H EMDF, PT, BMP3M, PHOS3, MG3, CK3 #### [address] #### VD25H #### [facility] [address] [place] [address] RBC #/vol (Bld) 3.62 10*6/uL Low 4.40-5.90 [facility] Comment on above: Performed By: #### H EMDF, PT, BMP3M, PHOS3, MG3, CK3 #### [facility] [address] [place], [place] #### VD25H #### [facility] [address] [place] [address] WBC #/vol (Bld) 15.2 10*3/uL High 3.6-10.7 [facility] Comment on above: Performed By: #### H EMDF, PT, BMP3M, PHOS3, MG3, CK3 #### [address] #### VD25H #### [facility] [address] [place] [address] Magnesiumon 07-26-2018 Magnesium mass conc 2.0 mg/dL Normal 1.6-2.3 [facility] Comment on above: Performed By: #### H EMDF, PT, BMP3M, PHOS3, MG3, CK3 #### [address] #### VD25H #### [facility] [address] [place] [address] Manual Diffon 07-26-2018 Abs Neutrophile Cnt 12.8 10*3/uL High 2.2-8.2 [facility] Comment on above: Performed By: #### H EMDF, PT, BMP3M, PHOS3, MG3, CK3 #### [address] [place] [address] [address] [place], [place] #### VD25H #### [facility] [address] [place] [address] Lymphocytes #/vol (Bld) 1.4 10*3/uL Normal 1.1-4.5 [facility] Comment on above: Performed By: #### H EMDF, PT, BMP3M, PHOS3, MG3, CK3 #### [address] #### VD25H #### [facility] [address] [place] [address] Lymphocytes/100 WBC (Bld) 9 % Low 20-40 [facility] Comment on above: Performed By: #### H EMDF, PT, BMP3M, PHOS3, MG3, CK3 #### [address] [address] [place], [place] #### VD25H #### [facility] [address] [place] [address] Monocytes #/vol (Bld) 1.1 10*3/uL Normal 0.2-1.1 [facility] Comment on above: Performed By: #### H EMDF, PT, BMP3M, PHOS3, MG3, CK3 #### [address] #### VD25H #### [place] [address] [place] [address] Monocytes/100 WBC (Bld) 7 % Normal 2-10 [facility] Comment on above: Performed By: #### H EMDF, PT, BMP3M, PHOS3, MG3, CK3 #### [address] #### VD25H #### [facility] [address] [place] [address] RBC morphology finding Nom (Bld) Normal Normal [facility] Comment on above: Performed By: #### H EMDF, PT, BMP3M, PHOS3, MG3, CK3 #### [address] #### VD25H #### [facility] [address] [place] [address] Seg Neutrophils 84 % High 40-80 [facility] Comment on above: Performed By: #### H EMDF, PT, BMP3M, PHOS3, MG3, CK3 #### [address] #### VD25H #### [facility] [address] [place] [address] Abs Baso Cnt 0.0 10*3/uL Normal 0.0-0.2 [facility] Comment on above: Performed By: #### H EMDF, PT, BMP3M, PHOS3, MG3, CK3 #### [facility] [address] [place], [place] #### VD25H #### [facility] [address] [place] [address] Bands 0 % Normal 0-3 [facility] Comment on above: Performed By: #### H EMDF, PT, BMP3M, PHOS3, MG3, CK3 #### [address] [address] [address] [place], [place] #### VD25H #### [facility] [address] [place] [address] Basophils/100 WBC (Bld) 0 % Normal 0-2 [facility] Comment on above: Performed By: #### H EMDF, PT, BMP3M, PHOS3, MG3, CK3 #### [address] [address] [place], [place] #### VD25H #### [facility] [address] [place] [address] Cells counted 100 Normal [facility] Comment on above: Performed By: #### H EMDF, PT, BMP3M, PHOS3, MG3, CK3 #### [address] [place] [address] [place], [place] #### VD25H #### [facility] [address] [place] [address] Eosinophils #/vol (Bld) 0.0 10*3/uL Normal 0.0-0.5 [facility] Comment on above: Performed By: #### H EMDF, PT, BMP3M, PHOS3, MG3, CK3 #### [address] [place], [place] #### VD25H #### [facility] [address] [place] [address] Eosinophils/100 WBC (Bld) 0 % Low 1-6 [facility] Comment on above: Performed By: #### H EMDF, PT, BMP3M, PHOS3, MG3, CK3 #### [address] [place] [address] [address] [place] #### VD25H #### [facility] [address] [place] [address] Phosphoruson 07-26-2018 Phosphate mass conc 3.1 mg/dL Normal 2.5-4.5 [facility] Comment on above: Performed By: #### H EMDF, PT, BMP3M, PHOS3, MG3, CK3 #### [address] [place] [address] [place], [place] #### VD25H #### [facility] [address] [place] [address] Vancomycin Troughon 07-27-19 19 Vancomycin Trough 8.9 ug/mL Low 15.0-20.0 [facility] Comment on above: Result Comment: . Performed By: #### H EMDF, PT, BMP3M, PHOS3, MG3, CK3 #### [address] #### VD25H #### [facility] [address] [place] [address] Arterial Blood Gaseson 07-25 CO2 molar conc 22.0 mmol/L Low 23.0-27.0 [facility] Comment on above: Performed By: #### H EMDF, PT, BMP3M, PHOS3, MG3, CK3 #### [address] [place] [address] [place], [place] #### VD25H #### [facility] [address] [place] [address] HCO3 molar conc (Bld) 21.1 mmol/L Normal 21.0-25.0 [facility] Comment on above: Performed By: #### H EMDF, PT, BMP3M, PHOS3, MG3, CK3 #### [address] #### VD25H #### [facility] [address] [place] [address] Hemoglobin mass conc (Bld) 10.1 g/dL Normal [facility] Comment on above: Performed By: #### H EMDF, PT, BMP3M, PHOS3, MG3, CK3 #### [facility] [address] [place], [place] #### VD25H #### [facility] [address] [place] [address] Oxygen ppres (Bld) 88.3 mm[Hg] Normal 80.0-100.0 [facility] Comment on above: Performed By: #### H EMDF, PT, BMP3M, PHOS3, MG3, CK3 #### [address] #### VD25H #### [facility] [address] [place] [address] Oxygen saturation in Blood 96.8 % Normal 95.0-100.0 [facility] Comment on above: Performed By: #### H EMDF, PT, BMP3M, PHOS3, MG3, CK3 #### [address] #### VD25H #### [facility] [address] [place] [address] pCO2 29.9 mm[Hg] Low 35.0-45.0 [facility] Comment on above: Performed By: #### H EMDF, PT, BMP3M, PHOS3, MG3, CK3 #### [facility] [address] [place], [place] #### VD25H #### [facility] [address] [place] [address] pH (Bld) 7.467 High 7.350-7.450 [facility] Comment on above: Performed By: #### H EMDF, PT, BMP3M, PHOS3, MG3, CK3 #### [address] #### VD25H #### [facility] [address] [place] [address] Std Base Excess -1.9 mmol/L Normal -3.0-3.0 [facility] Comment on above: Performed By: #### H EMDF, PT, BMP3M, PHOS3, MG3, CK3 #### [facility] [address] [place], [place] #### VD25H #### [facility] [address] [place] [address] FIO2 .30 Normal [facility] Comment on above: Performed By: #### H EMDF, PT, BMP3M, PHOS3, MG3, CK3 #### [address] #### VD25H #### [facility] [address] [place] [address] Basic Metabolic Panelon 03-2 Calcium mass conc 8.1 mg/dL Low 8.4-10.4 [facility] Comment on above: Performed By: #### H EMDF, PT, BMP3M, PHOS3, MG3, CK3 #### [address] #### VD25H #### [facility] [address] [place] [address] Anion gap molar conc 8 Normal [facility] Comment on above: Performed By: #### H EMDF, PT, BMP3M, PHOS3, MG3, CK3 #### [address] #### VD25H #### [facility] [address] [place] [address] CO2 molar conc 24 mmol/L Normal 22-30 [facility] Comment on above: Performed By: #### H EMDF, PT, BMP3M, PHOS3, MG3, CK3 #### [address] #### VD25H #### [facility] [address] [place] [address] Creatinine mass conc 0.55 mg/dL Normal 0.52-1.25 [facility] Comment on above: Performed By: #### H EMDF, PT, BMP3M, PHOS3, MG3, CK3 #### [facility] [address], [place] #### VD25H #### [facility] [address] [place] [address] GFR/1.73 sq M predicted among blacks MDRD vol rate/area (S/P/Bld) mL/min/{1.73_m2} Normal >60 [facility] Comment on above: Performed By: #### H EMDF, PT, BMP3M, PHOS3, MG3, CK3 #### [address] #### VD25H #### [facility] [address] [place] [address] GFR/1.73 sq M predicted among non-blacks MDRD vol rate/area (S/P/Bld) mL/min/{1.73_m2} Normal >60 [facility] Comment on above: Result Comment: Sour ce- MDRD equation with creatinine calibration to IDMS(NKDEP) eGFR not recommended for drug dose adjustment Performed By: #### H EMDF, PT, BMP3M, PHOS3, MG3, CK3 #### [address] #### VD25H #### [facility] [address] [place] [address] Glucose mass conc 184 mg/dL High 70-100 [facility] Comment on above: Performed By: #### H EMDF, PT, BMP3M, PHOS3, MG3, CK3 #### [address] #### VD25H #### [facility] [address] [place] [address] Urea nitrogen mass conc 20 mg/dL Normal 7-20 [facility] Comment on above: Performed By: #### H EMDF, PT, BMP3M, PHOS3, MG3, CK3 #### [facility] [address] [place] [address] #### VD25H #### [facility] [address] [place] [address] Chloride molar conc 109 mmol/L High 98-107 [facility] Comment on above: Performed By: #### H EMDF, PT, BMP3M, PHOS3, MG3, CK3 #### [facility] [address] [facility] [place] [address] #### VD25H #### [facility] [address] [place] [address] Potassium molar conc 4.0 mmol/L Normal 3.5-5.1 [facility] Comment on above: Performed By: #### H EMDF, PT, BMP3M, PHOS3, MG3, CK3 #### [place] [address] [address] [place], [place] #### VD25H #### [facility] [address] [place] [address] Sodium molar conc 141 mmol/L Normal 135-145 [facility] Comment on above: Performed By: #### H EMDF, PT, BMP3M, PHOS3, MG3, CK3 #### [facility] [address] [place], [place] #### VD25H #### [facility] [address] [place] [address] CR Chest Portableon 07-26-19 19 CR Chest Portable Patient Name: KATHYA HOOPER Diagnostic Radiology Exam Date/Time 07/25/2018 06:39:42 EDT Exam CR Chest Portable Ordering Physician MARIA EUGENIA PEREZ Accession Number [id number] CPT4 Codes 90057 () Reason For Exam ETT placement Report [...] RISA Transcribed Date and Time: 07/25/2018 7:45 [facility] CULTURE URINEon 07-25-2018 CULTURE URINE 1 [...] 4 S Trimeth/Sulfa(CHRISTI) <= 20 S Normal [facility] Comment on above: Order Comment: Speci men Source Comment:Urine, clean catch Performed By: #### H EMDF, PT, BMP3M, PHOS3, MG3, CK3 #### [facility] [address] [place], [place] #### VD25H #### [facility] [address] [place] [address] Glucose,Bedsideon 07-25-2018 Glucose mass conc 140 mg/dL High 70-100 [facility] Comment on above: Result Comment: Test performed by glucose meter. Results may be 10%-15% lower than serum/plasma values. (CLIA ID [id number]) Performed By: #### H EMDF, PT, BMP3M, PHOS3, MG3, CK3 #### [facility] [place], [place] #### VD25H #### [facility] [address] [place] [address] Glucose mass conc 158 mg/dL High 70-100 [facility] Comment on above: Result Comment: Test performed by glucose meter. Results may be 10%-15% lower than serum/plasma values. (CLIA ID [id number]) Performed By: #### H EMDF, PT, BMP3M, PHOS3, MG3, CK3 #### [facility] [address] [place] [address] #### VD25H #### [facility] [address] [place] [address] Glucose mass conc 172 mg/dL High 70-100 [facility] Comment on above: Result Comment: Test performed by glucose meter. Results may be 10%-15% lower than serum/plasma values. (CLIA ID [id number]) Performed By: #### H EMDF, PT, BMP3M, PHOS3, MG3, CK3 #### [facility] [address] [place] [address] #### VD25H #### [facility] [address] [place] [address] Glucose mass conc 169 mg/dL High 70-100 [facility] Comment on above: Result Comment: Test performed by glucose meter. Results may be 10%-15% lower than serum/plasma values. (CLIA ID [id number]) Performed By: #### H EMDF, PT, BMP3M, PHOS3, MG3, CK3 #### [address] #### VD25H #### [facility] [address] [place] [address] Glucose mass conc 165 mg/dL High 70-100 [facility] Comment on above: Result Comment: Test performed by glucose meter. Results may be 10%-15% lower than serum/plasma values. (CLIA ID [id number]) Performed By: #### H EMDF, PT, BMP3M, PHOS3, MG3, CK3 #### [address] #### VD25H #### [facility] [address] [place] [address] Hemogram w/ Autodiffon 07-25 Erythrocyte distribution width Ratio (RBC) 13.6 % Normal 11.5-14.5 [facility] Comment on above: Performed By: #### H EMDF, PT, BMP3M, PHOS3, MG3, CK3 #### [address] #### VD25H #### [facility] [address] [place] [address] Hematocrit Volume Fraction (Bld) 31.3 % Low 40.0-52.0 [facility] Comment on above: Performed By: #### H EMDF, PT, BMP3M, PHOS3, MG3, CK3 #### [address] #### VD25H #### [facility] [address] [place] [address] Hemoglobin mass conc (Bld) 10.6 g/dL Low 13.0-18.0 [facility] Comment on above: Performed By: #### H EMDF, PT, BMP3M, PHOS3, MG3, CK3 #### [place] [address] [address] [place], [place] #### VD25H #### [facility] [address] [place] [address] MCH Entitic mass (RBC) 29.4 pg Normal 26.0-34.0 [facility] Comment on above: Performed By: #### H EMDF, PT, BMP3M, PHOS3, MG3, CK3 #### [place] [address] [address] [place], [place] #### VD25H #### [facility] [address] [place] [place] [address] MCHC mass conc (RBC) 33.8 % Normal 32.0-36.0 [facility] Comment on above: Performed By: #### H EMDF, PT, BMP3M, PHOS3, MG3, CK3 #### [address] #### VD25H #### [facility] [address] [facility] [place] [address] MCV Entitic volume (RBC) 86.9 fL Normal 80.0-98.0 [facility] Comment on above: Performed By: #### H EMDF, PT, BMP3M, PHOS3, MG3, CK3 #### [address] #### VD25H #### [facility] [address] [facility] [place] [address] Platelet mean volume Entitic volume (Bld) 8.3 fL Normal 7.4-10.4 [facility] Comment on above: Performed By: #### H EMDF, PT, BMP3M, PHOS3, MG3, CK3 #### [address] #### VD25H #### [facility] [address] [facility] [place] [address] Platelets #/vol (Bld) 360 10*3/uL Normal 140-440 [facility] Comment on above: Performed By: #### H EMDF, PT, BMP3M, PHOS3, MG3, CK3 #### [address] #### VD25H #### [facility] [address] [place] [address] RBC #/vol (Bld) 3.61 10*6/uL Low 4.40-5.90 [facility] Comment on above: Performed By: #### H EMDF, PT, BMP3M, PHOS3, MG3, CK3 #### [address] #### VD25H #### [facility] [address] [place] [address] WBC #/vol (Bld) 14.7 10*3/uL High 3.6-10.7 [facility] Comment on above: Performed By: #### H EMDF, PT, BMP3M, PHOS3, MG3, CK3 #### [address] #### VD25H #### [address] [place] [address] Magnesiumon 07-25-2018 Magnesium mass conc 2.1 mg/dL Normal 1.6-2.3 [facility] Comment on above: Performed By: #### H EMDF, PT, BMP3M, PHOS3, MG3, CK3 #### [address] #### VD25H #### [facility] [address] [place] [address] Manual Diffon 07-25-2018 Abs Baso Cnt 0.1 10*3/uL Normal 0.0-0.2 [facility] Comment on above: Performed By: #### H EMDF, PT, BMP3M, PHOS3, MG3, CK3 #### [address] #### VD25H #### [facility] [address] [place] [address] Abs Neutrophile Cnt 12.9 10*3/uL High 2.2-8.2 [facility] Comment on above: Performed By: #### H EMDF, PT, BMP3M, PHOS3, MG3, CK3 #### [facility] [address] [place], [place] #### VD25H #### [facility] [address] [place] [address] Anisocytosis Ql (Bld) Slight Normal [facility] Comment on above: Performed By: #### H EMDF, PT, BMP3M, PHOS3, MG3, CK3 #### [facility] [address] [place], [place] #### VD25H #### [facility] [address] [place] [address] Bands 4 % High 0-3 [facility] Comment on above: Performed By: #### H EMDF, PT, BMP3M, PHOS3, MG3, CK3 #### [place] [address] [address] [place], [place] #### VD25H #### [facility] [address] [place] [address] Basophils/100 WBC (Bld) 1 % Normal 0-2 [facility] Comment on above: Performed By: #### H EMDF, PT, BMP3M, PHOS3, MG3, CK3 #### [facility] [address] [place], [place] #### VD25H #### [facility] [address] [place] [address] Eosinophils #/vol (Bld) 0.6 10*3/uL High 0.0-0.5 [facility] Comment on above: Performed By: #### H EMDF, PT, BMP3M, PHOS3, MG3, CK3 #### [address] [place], [place] #### VD25H #### [facility] [address] [place] [address] Eosinophils/100 WBC (Bld) 4 % Normal 1-6 [facility] Comment on above: Performed By: #### H EMDF, PT, BMP3M, PHOS3, MG3, CK3 #### [facility] [address] [place], [place] #### VD25H #### [facility] [address] [place] [address] Lymphocytes #/vol (Bld) 0.1 10*3/uL Low 1.1-4.5 [facility] Comment on above: Performed By: #### H EMDF, PT, BMP3M, PHOS3, MG3, CK3 #### [address] #### VD25H #### [facility] [address] [place] [address] Lymphocytes/100 WBC (Bld) 1 % Low 20-40 [facility] Comment on above: Performed By: #### H EMDF, PT, BMP3M, PHOS3, MG3, CK3 #### [address] #### VD25H #### [facility] [address] [place] [address] Macrocytosis Slight Normal [facility] Comment on above: Performed By: #### H EMDF, PT, BMP3M, PHOS3, MG3, CK3 #### [address] #### VD25H #### [facility] [address] [place] [address] Metamyelocytes 2 % Abnormal <1 [facility] Comment on above: Performed By: #### H EMDF, PT, BMP3M, PHOS3, MG3, CK3 #### [address] #### VD25H #### [facility] [address] [place] [address] Microcytosis Slight Normal [facility] Comment on above: Performed By: #### H EMDF, PT, BMP3M, PHOS3, MG3, CK3 #### [facility] [address] [place], [place] #### VD25H #### [facility] [address] [place] [address] Monocytes #/vol (Bld) 0.6 10*3/uL Normal 0.2-1.1 [facility] Comment on above: Performed By: #### H EMDF, PT, BMP3M, PHOS3, MG3, CK3 #### [place] [address] [address] [place], [place] #### VD25H #### [facility] [address] [place] [address] Monocytes/100 WBC (Bld) 4 % Normal 2-10 [facility] Comment on above: Performed By: #### H EMDF, PT, BMP3M, PHOS3, MG3, CK3 #### [place] [address] [address] [place], [place] #### VD25H #### [facility] [address] [place] [address] RBC morphology finding Nom (Bld) ABNORMAL Normal [facility] Comment on above: Performed By: #### H EMDF, PT, BMP3M, PHOS3, MG3, CK3 #### [place] [address] [address] [place], [place] #### VD25H #### [facility] [address] [place] [address] Seg Neutrophils 84 % High 40-80 [facility] Comment on above: Performed By: #### H EMDF, PT, BMP3M, PHOS3, MG3, CK3 #### [place] [address] [address] [place], [place] #### VD25H #### [facility] [address] [place] [address] Cells counted 100 Normal [facility] Comment on above: Performed By: #### H EMDF, PT, BMP3M, PHOS3, MG3, CK3 #### [place] [address] [address] [place], [place] #### VD25H #### [facility] [address] [place] [address] Phosphoruson 07-25-2018 Phosphate mass conc 2.7 mg/dL Normal 2.5-4.5 [facility] Comment on above: Performed By: #### H EMDF, PT, BMP3M, PHOS3, MG3, CK3 #### [place] [address] [address] [place], [place] #### VD25H #### [facility] [address] [place] [address] Triglycerideon 07-25-2018 Triglyceride mass conc 82 mg/dL Normal <150 [facility] Comment on above: Performed By: #### H EMDF, PT, BMP3M, PHOS3, MG3, CK3 #### [address] #### VD25H #### [place] [address] [place] [address] Basic Metabolic Panelon 06-30 Calcium mass conc 8.0 mg/dL Low 8.4-10.4 [facility] Comment on above: Performed By: #### H EMDF, PT, BMP3M, PHOS3, MG3, CK3 #### [address] #### VD25H #### [facility] [address] [place] [address] Anion gap molar conc 9 Normal [facility] Comment on above: Performed By: #### H EMDF, PT, BMP3M, PHOS3, MG3, CK3 #### [address] #### VD25H #### [facility] [address] [place] [address] CO2 molar conc 23 mmol/L Normal 22-30 [facility] Comment on above: Performed By: #### H EMDF, PT, BMP3M, PHOS3, MG3, CK3 #### [address] #### VD25H #### [facility] [address] [place] [address] Creatinine mass conc 0.71 mg/dL Normal 0.52-1.25 [facility] Comment on above: Performed By: #### H EMDF, PT, BMP3M, PHOS3, MG3, CK3 #### [address] #### VD25H #### [facility] [address] [place] [address] GFR/1.73 sq M predicted among blacks MDRD vol rate/area (S/P/Bld) mL/min/{1.73_m2} Normal >60 [facility] Comment on above: Performed By: #### H EMDF, PT, BMP3M, PHOS3, MG3, CK3 #### [address] #### VD25H #### [place] [address] [place] [address] GFR/1.73 sq M predicted among non-blacks MDRD vol rate/area (S/P/Bld) mL/min/{1.73_m2} Normal >60 [facility] Comment on above: Result Comment: Sour ce- MDRD equation with creatinine calibration to IDMS(NKDEP) eGFR not recommended for drug dose adjustment Performed By: #### H EMDF, PT, BMP3M, PHOS3, MG3, CK3 #### [address] #### VD25H #### [facility] [address] [place] [address] Glucose mass conc 160 mg/dL High 70-100 [facility] Comment on above: Performed By: #### H EMDF, PT, BMP3M, PHOS3, MG3, CK3 #### [address] #### VD25H #### [facility] [address] [place] [address] Urea nitrogen mass conc 28 mg/dL High 7-20 [facility] Comment on above: Performed By: #### H EMDF, PT, BMP3M, PHOS3, MG3, CK3 #### [facility] [address] [place] [address] #### VD25H #### [facility] [address] [place] [address] Chloride molar conc 109 mmol/L High 98-107 [facility] Comment on above: Performed By: #### H EMDF, PT, BMP3M, PHOS3, MG3, CK3 #### [facility] [address] [place], [place] #### VD25H #### [facility] [address] [place] [address] Potassium molar conc 3.7 mmol/L Normal 3.5-5.1 [facility] Comment on above: Performed By: #### H EMDF, PT, BMP3M, PHOS3, MG3, CK3 #### [facility] [address] [place] #### VD25H #### [facility] [address] [place] [address] Sodium molar conc 141 mmol/L Normal 135-145 [facility] Comment on above: Performed By: #### H EMDF, PT, BMP3M, PHOS3, MG3, CK3 #### [facility] [address] [place], [place] #### VD25H #### [facility] [address] [place] [address] CR Chest Portableon 07-25-19 19 CR Chest Portable Patient Name: KATHYA HOOPER Diagnostic Radiology Exam Date/Time 07/24/2018 13:12:47 EDT Exam CR Chest Portable Ordering Physician DO WOLFF KATHRYN C Accession Number [id number] CPT4 Codes 13586 () Reason For Exam line placement Report [...] ALFRED Transcribed Date and Time: 07/24/2018 3:10 [facility] CR Chest Portable Patient Name: KATHYA HOOPER Diagnostic Radiology Exam Date/Time 07/24/2018 07:11:26 EDT Exam CR Chest Portable Ordering Physician MARIA EUGENIA PEREZ Accession Number [id number] CPT4 Codes 20448 () Reason For Exam ETT placement Report [...] Transcribed Date and Time: 07/24/2018 7:31 Normal [facility] CULT./ST. RESPIRATORYon 06-30 CULT./ST. RESPIRATORY CULT./ST. RESPIRAT [...] 1 S Trimeth/Sulfa(CHRISTI) <= 20 S Normal [facility] Comment on above: Order Comment: Speci men Source Comment:Endotracheal Performed By: #### H EMDF, PT, BMP3M, PHOS3, MG3, CK3 #### [facility] [address] [place] [address] #### VD25H #### [facility] [address] [place] [address] CULTURE URINEon 07-24-2018 CULTURE URINE 1 Organism [...] 4 S Trimeth/Sulfa(CHRISTI) <= 20 S Normal [facility] Comment on above: Order Comment: Speci men Source Comment:Urine, clean catch Performed By: #### H EMDF, PT, BMP3M, PHOS3, MG3, CK3 #### [facility] [address] [address] #### VD25H #### [facility] [address] [place] [address] Creatinine, Ur Randomon 06-30 Creatinine, Ur Random 49.5 mg/dL Normal No Range [facility] Comment on above: Performed By: #### H EMDF, PT, BMP3M, PHOS3, MG3, CK3 #### [facility] [address] [place], [place] #### VD25H #### [facility] [address] [place] [address] Glucose,Bedsideon 07-24-2018 Glucose mass conc 124 mg/dL High 70-100 [facility] Comment on above: Result Comment: Test performed by glucose meter. Results may be 10%-15% lower than serum/plasma values. (CLIA ID [id number]) Performed By: #### H EMDF, PT, BMP3M, PHOS3, MG3, CK3 #### [facility] [address] #### VD25H #### [facility] [address] [place] [address] Glucose mass conc 152 mg/dL High 70-100 [facility] Comment on above: Result Comment: Test performed by glucose meter. Results may be 10%-15% lower than serum/plasma values. (CLIA ID [id number]) Performed By: #### H EMDF, PT, BMP3M, PHOS3, MG3, CK3 #### [facility] [employer] [address] [place] [address] #### VD25H #### [facility] [address] [place] [address] Glucose mass conc 149 mg/dL High 70-100 [facility] Comment on above: Result Comment: Test performed by glucose meter. Results may be 10%-15% lower than serum/plasma values. (CLIA ID [id number]) Performed By: #### H EMDF, PT, BMP3M, PHOS3, MG3, CK3 #### [facility] [employer] [address] [place] [address] #### VD25H #### [facility] [address] [place] [address] Hemogram w/ Autodiffon 07-24 Erythrocyte distribution width Ratio (RBC) 13.7 % Normal 11.5-14.5 [facility] Comment on above: Performed By: #### H EMDF, PT, BMP3M, PHOS3, MG3, CK3 #### [place] [address] [address] [place], [place] #### VD25H #### [facility] [address] [place] [address] Hematocrit Volume Fraction (Bld) 31.4 % Low 40.0-52.0 [facility] Comment on above: Performed By: #### H EMDF, PT, BMP3M, PHOS3, MG3, CK3 #### [place] [address] [address] [place], [place] #### VD25H #### [facility] [address] [place] [address] Hemoglobin mass conc (Bld) 10.7 g/dL Low 13.0-18.0 [facility] Comment on above: Performed By: #### H EMDF, PT, BMP3M, PHOS3, MG3, CK3 #### [address] [place], [place] #### VD25H #### [facility] [address] [place] [address] MCH Entitic mass (RBC) 29.4 pg Normal 26.0-34.0 [facility] Comment on above: Performed By: #### H EMDF, PT, BMP3M, PHOS3, MG3, CK3 #### [address] [place], [place] #### VD25H #### [facility] [address] [place] [address] MCHC mass conc (RBC) 33.9 % Normal 32.0-36.0 [facility] Comment on above: Performed By: #### H EMDF, PT, BMP3M, PHOS3, MG3, CK3 #### [facility] [address] [place], [place] #### VD25H #### [facility] [address] [place] [address] MCV Entitic volume (RBC) 86.8 fL Normal 80.0-98.0 [facility] Comment on above: Performed By: #### H EMDF, PT, BMP3M, PHOS3, MG3, CK3 #### [place] [address] [address] [place], [place] #### VD25H #### [facility] [address] [place] [address] Platelet mean volume Entitic volume (Bld) 8.6 fL Normal 7.4-10.4 [facility] Comment on above: Performed By: #### H EMDF, PT, BMP3M, PHOS3, MG3, CK3 #### [address] #### VD25H #### [facility] [address] [place] [address] Platelets #/vol (Bld) 304 10*3/uL Normal 140-440 [facility] Comment on above: Performed By: #### H EMDF, PT, BMP3M, PHOS3, MG3, CK3 #### [address] #### VD25H #### [facility] [address] [place] [address] RBC #/vol (Bld) 3.62 10*6/uL Low 4.40-5.90 [facility] Comment on above: Performed By: #### H EMDF, PT, BMP3M, PHOS3, MG3, CK3 #### [address] #### VD25H #### [facility] [address] [place] [address] WBC #/vol (Bld) 14.0 10*3/uL High 3.6-10.7 [facility] Comment on above: Performed By: #### H EMDF, PT, BMP3M, PHOS3, MG3, CK3 #### [place] [address] [address] [place], [place] #### VD25H #### [facility] [address] [place] [address] Magnesiumon 07-24-2018 Magnesium mass conc 2.2 mg/dL Normal 1.6-2.3 [facility] Comment on above: Performed By: #### H EMDF, PT, BMP3M, PHOS3, MG3, CK3 #### [address] #### VD25H #### [facility] [address] [place] [address] Manual Diffon 07-24-2018 Abs Baso Cnt 0.0 10*3/uL Normal 0.0-0.2 [facility] Comment on above: Performed By: #### H EMDF, PT, BMP3M, PHOS3, MG3, CK3 #### [address] #### VD25H #### [facility] [address] [place] [address] Abs Neutrophile Cnt 12.2 10*3/uL High 2.2-8.2 [facility] Comment on above: Performed By: #### H EMDF, PT, BMP3M, PHOS3, MG3, CK3 #### [place] [address] [address] [place] #### VD25H #### [facility] [address] [place] [address] Eosinophils #/vol (Bld) 0.4 10*3/uL Normal 0.0-0.5 [facility] Comment on above: Performed By: #### H EMDF, PT, BMP3M, PHOS3, MG3, CK3 #### [address] #### VD25H #### [facility] [address] [place] [address] Eosinophils/100 WBC (Bld) 3 % Normal 1-6 [facility] Comment on above: Performed By: #### H EMDF, PT, BMP3M, PHOS3, MG3, CK3 #### [facility] [address] [place], [place] #### VD25H #### [facility] [address] [place] [address] Lymphocytes #/vol (Bld) 1.0 10*3/uL Low 1.1-4.5 [facility] Comment on above: Performed By: #### H EMDF, PT, BMP3M, PHOS3, MG3, CK3 #### [place] [address] [address] [place] #### VD25H #### [facility] [address] [place] [address] Lymphocytes/100 WBC (Bld) 7 % Low 20-40 [facility] Comment on above: Performed By: #### H EMDF, PT, BMP3M, PHOS3, MG3, CK3 #### [place] [address] [address] [place] #### VD25H #### [facility] [address] [place] [address] Monocytes #/vol (Bld) 0.4 10*3/uL Normal 0.2-1.1 [facility] Comment on above: Performed By: #### H EMDF, PT, BMP3M, PHOS3, MG3, CK3 #### [place] [address] [address] [place] #### VD25H #### [facility] [address] [place] [address] Monocytes/100 WBC (Bld) 3 % Normal 2-10 [facility] Comment on above: Performed By: #### H EMDF, PT, BMP3M, PHOS3, MG3, CK3 #### [place] [address] [address] [place] #### VD25H #### [facility] [address] [place] [address] RBC morphology finding Nom (Bld) Normal Normal [facility] Comment on above: Performed By: #### H EMDF, PT, BMP3M, PHOS3, MG3, CK3 #### [facility] [address] [place], [place] #### VD25H #### [facility] [address] [place] [address] Seg Neutrophils 87 % High 40-80 [facility] Comment on above: Performed By: #### H EMDF, PT, BMP3M, PHOS3, MG3, CK3 #### [place] [address] [address] [place], [place] #### VD25H #### [facility] [address] [place] [address] Bands 0 % Normal 0-3 [facility] Comment on above: Performed By: #### H EMDF, PT, BMP3M, PHOS3, MG3, CK3 #### [facility] [address] [place], [place] #### VD25H #### [facility] [address] [place] [address] Basophils/100 WBC (Bld) 0 % Normal 0-2 [facility] Comment on above: Performed By: #### H EMDF, PT, BMP3M, PHOS3, MG3, CK3 #### [place] [address] [place], [place] #### VD25H #### [facility] [address] [place] [address] Cells counted 100 Normal [facility] Comment on above: Performed By: #### H EMDF, PT, BMP3M, PHOS3, MG3, CK3 #### [place] [address] [address] [place] #### VD25H #### [facility] [address] [place] [address] Phosphoruson 07-24-2018 Phosphate mass conc 2.7 mg/dL Normal 2.5-4.5 [facility] Comment on above: Performed By: #### H EMDF, PT, BMP3M, PHOS3, MG3, CK3 #### [place] [address] [address] [place] #### VD25H #### [facility] [address] [place] [address] Triglycerideon 07-24-2018 Triglyceride mass conc 78 mg/dL Normal <150 [facility] Comment on above: Performed By: #### H EMDF, PT, BMP3M, PHOS3, MG3, CK3 #### [place] [address] [address] [place], [place] #### VD25H #### [facility] [address] [place] [address] Urea Nitrogen,Ur Randomon Urea nitrogen mass conc 1199 mg/dL Normal No Range [facility] Comment on above: Performed By: #### H EMDF, PT, BMP3M, PHOS3, MG3, CK3 #### [place] [address] [address] [place], [place] #### VD25H #### [facility] [address] [place] [address] Add on test from HISon 07-23 Add on test from HIS Accepted Normal [facility] Comment on above: Result Comment: Spec imen available & acceptable for analysis. Performed By: #### H EMDF, PT, BMP3M, PHOS3, MG3, CK3 #### [place] [address] [address] [address] [place], [place] #### VD25H #### [facility] [address] [place] [address] Arterial Blood Gaseson 07-23 CO2 molar conc 23.0 mmol/L Normal 23.0-27.0 [facility] Comment on above: Performed By: #### H EMDF, PT, BMP3M, PHOS3, MG3, CK3 #### [address] #### VD25H #### [facility] [address] [place] [address] HCO3 molar conc (Bld) 22.0 mmol/L Normal 21.0-25.0 [facility] Comment on above: Performed By: #### H EMDF, PT, BMP3M, PHOS3, MG3, CK3 #### [place] [address] [address] [place], [place] #### VD25H #### [facility] [address] [place] [address] Hemoglobin mass conc (Bld) 10.9 g/dL Normal ScreenOnly [facility] Comment on above: Performed By: #### H EMDF, PT, BMP3M, PHOS3, MG3, CK3 #### [address] #### VD25H #### [facility] [address] [place] [address] Oxygen ppres (Bld) 102.4 mm[Hg] High 80.0-100.0 [facility] Comment on above: Performed By: #### H EMDF, PT, BMP3M, PHOS3, MG3, CK3 #### [address] #### VD25H #### [facility] [address] [place] [address] Oxygen saturation in Blood 97.7 % Normal 95.0-100.0 [facility] Comment on above: Performed By: #### H EMDF, PT, BMP3M, PHOS3, MG3, CK3 #### [place] [address] [address] [place], [place] #### VD25H #### [facility] [address] [place] [address] pCO2 34.4 mm[Hg] Low 35.0-45.0 [facility] Comment on above: Performed By: #### H EMDF, PT, BMP3M, PHOS3, MG3, CK3 #### [address] #### VD25H #### [facility] [address] [place] [address] pH (Bld) 7.423 Normal 7.350-7.450 [facility] Comment on above: Performed By: #### H EMDF, PT, BMP3M, PHOS3, MG3, CK3 #### [facility] [address] [place] [address] #### VD25H #### [facility] [address] [place] [address] Std Base Excess -1.9 mmol/L Normal -3.0-3.0 [facility] Comment on above: Performed By: #### H EMDF, PT, BMP3M, PHOS3, MG3, CK3 #### [address] [place], [place] #### VD25H #### [facility] [address] [place] [address] FIO2 .30 Normal [facility] Comment on above: Performed By: #### H EMDF, PT, BMP3M, PHOS3, MG3, CK3 #### [address] #### VD25H #### [facility] [address] [place] [address] Basic Metabolic Panelon - Anion gap molar conc 12 Normal [facility] Comment on above: Performed By: #### H EMDF, PT, BMP3M, PHOS3, MG3, CK3 #### [address] [address] [place], [place] #### VD25H #### [facility] [address] [place] [address] Calcium mass conc 7.5 mg/dL Low 8.4-10.4 [facility] Comment on above: Performed By: #### H EMDF, PT, BMP3M, PHOS3, MG3, CK3 #### [address] #### VD25H #### [facility] [address] [place] [address] CO2 molar conc 23 mmol/L Normal 22-30 [facility] Comment on above: Performed By: #### H EMDF, PT, BMP3M, PHOS3, MG3, CK3 #### [facility] [address] [facility], [place] #### VD25H #### [facility] [address] [place] [address] Glucose mass conc 148 mg/dL High 70-100 [facility] Comment on above: Performed By: #### H EMDF, PT, BMP3M, PHOS3, MG3, CK3 #### [place] [address] [address] [facility], [place] #### VD25H #### [facility] [address] [place] [address] Urea nitrogen mass conc 82 mg/dL High 7-20 [facility] Comment on above: Performed By: #### H EMDF, PT, BMP3M, PHOS3, MG3, CK3 #### [place] [address] [address] [facility], [place] #### VD25H #### [facility] [address] [place] [address] Creatinine mass conc 3.01 mg/dL High 0.52-1.25 [facility] Comment on above: Performed By: #### H EMDF, PT, BMP3M, PHOS3, MG3, CK3 #### [place] [address] [address] [facility], [place] #### VD25H #### [facility] [address] [place] [address] GFR/1.73 sq M predicted among blacks MDRD vol rate/area (S/P/Bld) 25.8 mL/min/{1.73_m2} Normal >60 [facility] Comment on above: Performed By: #### H EMDF, PT, BMP3M, PHOS3, MG3, CK3 #### [place] [address] [address] [facility], [place] #### VD25H #### [facility] [address] [place] [address] GFR/1.73 sq M predicted among non-blacks MDRD vol rate/area (S/P/Bld) 21.3 mL/min/{1.73_m2} Normal >60 [facility] Comment on above: Result Comment: Sour ce- MDRD equation with creatinine calibration to IDMS(NKDEP) eGFR not recommended for drug dose adjustment Performed By: #### H EMDF, PT, BMP3M, PHOS3, MG3, CK3 #### [facility] [address] [place], [place] #### VD25H #### [facility] [address] [place] [address] Chloride molar conc 106 mmol/L Normal 98-107 [facility] Comment on above: Performed By: #### H EMDF, PT, BMP3M, PHOS3, MG3, CK3 #### [address] [address] [place], [place] #### VD25H #### [facility] [address] [place] [address] Potassium molar conc 4.2 mmol/L Normal 3.5-5.1 [facility] Comment on above: Performed By: #### H EMDF, PT, BMP3M, PHOS3, MG3, CK3 #### [facility] [address] [facility], [place] #### VD25H #### [facility] [address] [place] [address] Sodium molar conc 141 mmol/L Normal 135-145 [facility] Comment on above: Performed By: #### H EMDF, PT, BMP3M, PHOS3, MG3, CK3 #### [place] [address] [facility] [place] #### VD25H #### [facility] [address] [place] [address] CR Chest Portableon 07-24-19 19 CR Chest Portable Patient Name: KATHYA HOOPER Diagnostic Radiology Exam Date/Time 07/23/2018 07:06:03 EDT Exam CR Chest Portable Ordering Physician MARIA EUGENIA PEREZ Accession Number [id number] CPT4 Codes 46700 () Reason For Exam ETT placement Report [...] Transcribed Date and Time: 07/23/2018 7:58 Normal [facility] Creatinine, Ur Randomon 06-30 Creatinine, Ur Random 56.8 mg/dL Normal No Range [facility] Comment on above: Performed By: #### H EMDF, PT, BMP3M, PHOS3, MG3, CK3 #### [facility] [address] [place] [address] #### VD25H #### [facility] [address] [place] [address] Glucose,Bedsideon 07-23-2018 Glucose mass conc 116 mg/dL High 70-100 [facility] Comment on above: Result Comment: Test performed by glucose meter. Results may be 10%-15% lower than serum/plasma values. (CLIA ID [id number]) Performed By: #### H EMDF, PT, BMP3M, PHOS3, MG3, CK3 #### [facility] [address] [place] [address] #### VD25H #### [facility] [address] [place] [address] Glucose mass conc 139 mg/dL High 70-100 [facility] Comment on above: Result Comment: Test performed by glucose meter. Results may be 10%-15% lower than serum/plasma values. (CLIA ID [id number]) Performed By: #### H EMDF, PT, BMP3M, PHOS3, MG3, CK3 #### [address] #### VD25H #### [facility] [address] [place] [address] Glucose mass conc 140 mg/dL High 70-100 [facility] Comment on above: Result Comment: Test performed by glucose meter. Results may be 10%-15% lower than serum/plasma values. (CLIA ID [id number]) Performed By: #### H EMDF, PT, BMP3M, PHOS3, MG3, CK3 #### [address] #### VD25H #### [facility] [address] [place] [address] Glucose mass conc 140 mg/dL High 70-100 [facility] Comment on above: Result Comment: Test performed by glucose meter. Results may be 10%-15% lower than serum/plasma values. (CLIA ID [id number]) Performed By: #### H EMDF, PT, BMP3M, PHOS3, MG3, CK3 #### [address] #### VD25H #### [facility] [address] [place] [address] Hemogram w/ Autodiffon 07-23 Abs Baso Cnt 0.0 10*3/uL Normal 0.0-0.2 [facility] Comment on above: Performed By: #### H EMDF, PT, BMP3M, PHOS3, MG3, CK3 #### [address] #### VD25H #### [facility] [address] [place], [place] Abs Neutrophile Cnt 16.2 10*3/uL High 1.8-7.0 [facility] Comment on above: Performed By: #### H EMDF, PT, BMP3M, PHOS3, MG3, CK3 #### [facility] [address] [place], [place] #### VD25H #### [facility] [address] [place] [address] Basophils/100 WBC (Bld) 0.3 % Normal 0.0-2.0 [facility] Comment on above: Performed By: #### H EMDF, PT, BMP3M, PHOS3, MG3, CK3 #### [address] [address] [place], [place] #### VD25H #### [facility] [address] [place] [address] Eosinophils #/vol (Bld) 0.2 10*3/uL Normal 0.0-0.5 [facility] Comment on above: Performed By: #### H EMDF, PT, BMP3M, PHOS3, MG3, CK3 #### [address] #### VD25H #### [facility] [address] [place] [address] Eosinophils/100 WBC (Bld) 1.2 % Normal 1.0-6.0 [facility] Comment on above: Performed By: #### H EMDF, PT, BMP3M, PHOS3, MG3, CK3 #### [address] #### VD25H #### [facility] [address] [place] [address] Erythrocyte distribution width Ratio (RBC) 13.9 % Normal 11.5-14.5 [facility] Comment on above: Performed By: #### H EMDF, PT, BMP3M, PHOS3, MG3, CK3 #### [address] #### VD25H #### [facility] [address] [place] [address] Granulocytes/100 WBC (Bld) 86.8 % High 40.0-80.0 [facility] Comment on above: Performed By: #### H EMDF, PT, BMP3M, PHOS3, MG3, CK3 #### [facility] [address] [place], [place] #### VD25H #### [facility] [address] [place] [address] Hematocrit Volume Fraction (Bld) 26.7 % Low 40.0-52.0 [facility] Comment on above: Performed By: #### H EMDF, PT, BMP3M, PHOS3, MG3, CK3 #### [facility] [address] [place], [place] #### VD25H #### [facility] [address] [place] [address] Hemoglobin mass conc (Bld) 8.9 g/dL Low 13.0-18.0 [facility] Comment on above: Performed By: #### H EMDF, PT, BMP3M, PHOS3, MG3, CK3 #### [facility] [address] [place], [place] #### VD25H #### [facility] [address] [place] [address] Lymphocytes #/vol (Bld) 1.2 10*3/uL Normal 1.0-4.3 [facility] Comment on above: Performed By: #### H EMDF, PT, BMP3M, PHOS3, MG3, CK3 #### [facility] [address] [place], [place] #### VD25H #### [facility] [address] [place] [address] Lymphocytes/100 WBC (Bld) 6.6 % Low 20.0-40.0 [facility] Comment on above: Performed By: #### H EMDF, PT, BMP3M, PHOS3, MG3, CK3 #### [facility] [address] [place], [place] #### VD25H #### [facility] [address] [place] [address] MCH Entitic mass (RBC) 29.5 pg Normal 26.0-34.0 [facility] Comment on above: Performed By: #### H EMDF, PT, BMP3M, PHOS3, MG3, CK3 #### [address] [place] [address] [address] [place], [place] #### VD25H #### [facility] [address] [place] [address] MCHC mass conc (RBC) 33.5 % Normal 32.0-36.0 [facility] Comment on above: Performed By: #### H EMDF, PT, BMP3M, PHOS3, MG3, CK3 #### [address] #### VD25H #### [place] [address] [place] [address] MCV Entitic volume (RBC) 87.9 fL Normal 80.0-98.0 [facility] Comment on above: Performed By: #### H EMDF, PT, BMP3M, PHOS3, MG3, CK3 #### [address] #### VD25H #### [facility] [address] [place] [address] Monocytes #/vol (Bld) 1.0 10*3/uL High 0.0-0.8 [facility] Comment on above: Performed By: #### H EMDF, PT, BMP3M, PHOS3, MG3, CK3 #### [address] #### VD25H #### [place] [address] [place] [address] Monocytes/100 WBC (Bld) 5.1 % Normal 2.0-10.0 [facility] Comment on above: Performed By: #### H EMDF, PT, BMP3M, PHOS3, MG3, CK3 #### [address] #### VD25H #### [facility] [address] [place] [address] Platelet mean volume Entitic volume (Bld) 8.2 fL Normal 7.4-10.4 [facility] Comment on above: Performed By: #### H EMDF, PT, BMP3M, PHOS3, MG3, CK3 #### [address] #### VD25H #### [facility] [address] [place] [address] Platelets #/vol (Bld) 294 10*3/uL Normal 140-440 [facility] Comment on above: Performed By: #### H EMDF, PT, BMP3M, PHOS3, MG3, CK3 #### [address] #### VD25H #### [place] [address] [place] [address] RBC #/vol (Bld) 3.03 10*6/uL Low 4.40-5.90 [facility] Comment on above: Performed By: #### H EMDF, PT, BMP3M, PHOS3, MG3, CK3 #### [address] #### VD25H #### [place] [address] [place] [address] WBC #/vol (Bld) 18.7 10*3/uL High 3.6-10.7 [facility] Comment on above: Performed By: #### H EMDF, PT, BMP3M, PHOS3, MG3, CK3 #### [address] #### VD25H #### [facility] [address] [place] [address] LDHon 07-23-2018 LDH 342 U/L High 65-175 [facility] Comment on above: Performed By: #### H EMDF, PT, BMP3M, PHOS3, MG3, CK3 #### [facility] [address] [place], [place] #### VD25H #### [facility] [address] [place] [address] Magnesiumon 07-23-2018 Magnesium mass conc 2.5 mg/dL High 1.6-2.3 [facility] Comment on above: Performed By: #### H EMDF, PT, BMP3M, PHOS3, MG3, CK3 #### [address] [address] [address] [place], [place] #### VD25H #### [facility] [address] [place] [address] Phosphoruson 07-23-2018 Phosphate mass conc 4.5 mg/dL Normal 2.5-4.5 [facility] Comment on above: Performed By: #### H EMDF, PT, BMP3M, PHOS3, MG3, CK3 #### [address] [address] [address] [place], [place] #### VD25H #### [facility] [address] [place] [address] Protein, Total Body Fluidon 07-23-2018 Protein,Total-Body Fld 2.7 g/dL Normal No Range [facility] Comment on above: Performed By: #### H EMDF, PT, BMP3M, PHOS3, MG3, CK3 #### [address] [address] [address] [place] #### VD25H #### [facility] [address] [place] [address] Triglycerideon 07-23-2018 Triglyceride mass conc 63 mg/dL Normal <150 [facility] Comment on above: Performed By: #### H EMDF, PT, BMP3M, PHOS3, MG3, CK3 #### [place] [address] [address] [address] [facility], [place] #### VD25H #### [facility] [address] [place] [address] Urea Nitrogen,Ur Randomon Urea nitrogen mass conc 677 mg/dL Normal No Range [facility] Comment on above: Performed By: #### H EMDF, PT, BMP3M, PHOS3, MG3, CK3 #### [address] [place], [place] #### VD25H #### [facility] [address] [place] [address] Urinalysis,Macroon 9 Appearance Nom (U) cloudy Normal Clear [facility] Comment on above: Performed By: #### H EMDF, PT, BMP3M, PHOS3, MG3, CK3 #### [address] [address] [address] [place], [place] #### VD25H #### [facility] [address] [place] [address] Bilirubin,Ur Negative Normal Negative [facility] Comment on above: Performed By: #### H EMDF, PT, BMP3M, PHOS3, MG3, CK3 #### [address] #### VD25H #### [facility] [address] [place] [address] Color Nom (U) dk.yel Normal Lt. Yellow [facility] Comment on above: Performed By: #### H EMDF, PT, BMP3M, PHOS3, MG3, CK3 #### [address] #### VD25H #### [facility] [address] [place] [address] Glucose Ql (U) NORM Normal Negative [facility] Comment on above: Performed By: #### H EMDF, PT, BMP3M, PHOS3, MG3, CK3 #### [address] #### VD25H #### [facility] [address] [place] [address] Ketone,Urine Negative Normal Negative [facility] Comment on above: Performed By: #### H EMDF, PT, BMP3M, PHOS3, MG3, CK3 #### [address] [place], [place] #### VD25H #### [facility] [address] [place] [address] Nitrite Ql (U) Negative Normal Negative [facility] Comment on above: Performed By: #### H EMDF, PT, BMP3M, PHOS3, MG3, CK3 #### [address] [address] [address] [place], [place] #### VD25H #### [facility] [address] [place] [address] Occult Blood,Ur 250 {RBC}/uL Normal Negative [facility] Comment on above: Performed By: #### H EMDF, PT, BMP3M, PHOS3, MG3, CK3 #### [address] [place], [place] #### VD25H #### [facility] [address] [place] [address] pH (U) 5.0 Normal 5.0-8.0 [facility] Comment on above: Performed By: #### H EMDF, PT, BMP3M, PHOS3, MG3, CK3 #### [address] [place], [place] #### VD25H #### [facility] [address] [place] [address] Protein mass conc (U) 75 mg/dL Normal Negative [facility] Comment on above: Performed By: #### H EMDF, PT, BMP3M, PHOS3, MG3, CK3 #### [address] [address] [address] [place], [place] #### VD25H #### [facility] [address] [place] [address] Specific [place],Urine 1.015 Normal 1.005-1.030 [facility] Comment on above: Performed By: #### H EMDF, PT, BMP3M, PHOS3, MG3, CK3 #### [address] [address] [address] [place], [place] #### VD25H #### [facility] [address] [place] [address] Urobilinogen Qn (U) NORM Normal 0-1 [facility] Comment on above: Performed By: #### H EMDF, PT, BMP3M, PHOS3, MG3, CK3 #### [address] [place], [place] #### VD25H #### [facility] [address] [place] [address] WBC #/vol (Bld) 2 + Normal Negative [facility] Comment on above: Performed By: #### H EMDF, PT, BMP3M, PHOS3, MG3, CK3 #### [address] #### VD25H #### [place] [address] [place] [address] Urinalysis,Microscopicon Bacteria LM.HPF #/area (Urine sed) Moderate (6-50) Normal Negative [facility] Comment on above: Performed By: #### H EMDF, PT, BMP3M, PHOS3, MG3, CK3 #### [address] #### VD25H #### [facility] [address] [place] [address] Epithelial cells LM.HPF #/area (Urine sed) 0 - 2 Normal 3-5 [facility] Comment on above: Performed By: #### H EMDF, PT, BMP3M, PHOS3, MG3, CK3 #### [address] #### VD25H #### [facility] [address] [place] [address] RBC LM.HPF #/area (Urine sed) /[HPF] Normal 0-2 [facility] Comment on above: Performed By: #### H EMDF, PT, BMP3M, PHOS3, MG3, CK3 #### [address] #### VD25H #### [facility] [address] [place] [address] Volume,Urine 8-12 ml Normal [facility] Comment on above: Performed By: #### H EMDF, PT, BMP3M, PHOS3, MG3, CK3 #### [facility] [address] [place], [place] #### VD25H #### [facility] [address] [place] [address] WBC LM.HPF #/area (Urine sed) 26 - 50 Normal 0-5 [facility] Comment on above: Performed By: #### H EMDF, PT, BMP3M, PHOS3, MG3, CK3 #### [facility] [address] [place], [place] #### VD25H #### [facility] [address] [place] [address] VL Venous Duplex US Lower Ex t Bilateralon 07-23-2018 VL Venous Duplex US Lower Ext Bilateral Patient Name: KATHYA HOOPER Ultrasound Exam Date/Time 07/23/2018 11:16:11 EDT Exam VL Venous Duplex US Lower Ext Bilateral Ordering Physician ETIENNE MARTÍNEZ JULIE Accession Number [id number] CPT4 Codes 93687 () Reason For Exam edema Report [facility] --- Lower Extremity Venous Duplex Report Patient Name: Kathya Hooper : 1955 Study Date: 07/23/2018 [place] (63yrs) Age: 63 Account: [id number] Gender: M Loc: [id number] BP: Ordering: Yesenia Martínez Technologist: Ordering Physician: Yesenia Martínez Database Analyst: León Chaidez T, [facility] Interpreting Physician: Vamsi York MD --- Location: [facility] --- INDICATIONS: Edema. bilateral calf edema. [...] performed. The images were obtained using a [employer] E9 vascular ultrasound machine. --- VENOUS FLOW [...] --+ Electronically signed by: Vamsi York MD [id number]:[id number] Final Dictated: 07/23/2018 3:00 pm Dictating Physician: VAMSI YORK Signed Date and Time: 07/23/2018 3:00 pm Signed by: VAMSI YORK Normal [facility] Vancomycin Troughon 07-24-19 Vancomycin Trough 10.8 ug/mL Low 15.0-20.0 [facility] Comment on above: Result Comment: . Performed By: #### H EMDF, PT, BMP3M, PHOS3, MG3, CK3 #### [address] #### VD25H #### [facility] [address] [place] [address] Basic Metabolic Panelon 06-30 Calcium mass conc 7.9 mg/dL Low 8.4-10.4 [facility] Comment on above: Performed By: #### H EMDF, PT, BMP3M, PHOS3, MG3, CK3 #### [address] #### VD25H #### [facility] [address] [place] [address] Anion gap molar conc 11 Normal [facility] Comment on above: Performed By: #### H EMDF, PT, BMP3M, PHOS3, MG3, CK3 #### [address] #### VD25H #### [facility] [address] [place] [address] CO2 molar conc 28 mmol/L Normal 22-30 [facility] Comment on above: Performed By: #### H EMDF, PT, BMP3M, PHOS3, MG3, CK3 #### [facility] [address] [place], [place] #### VD25H #### [facility] [address] [place] [address] Glucose mass conc 134 mg/dL High 70-100 [facility] Comment on above: Performed By: #### H EMDF, PT, BMP3M, PHOS3, MG3, CK3 #### [place] [address] [address] [place], [place] #### VD25H #### [facility] [address] [place] [address] Urea nitrogen mass conc 51 mg/dL High 7-20 [facility] Comment on above: Performed By: #### H EMDF, PT, BMP3M, PHOS3, MG3, CK3 #### [address] #### VD25H #### [facility] [address] [place] [address] Creatinine mass conc 1.57 mg/dL High 0.52-1.25 [facility] Comment on above: Performed By: #### H EMDF, PT, BMP3M, PHOS3, MG3, CK3 #### [place] [address] [address] [place], [place] #### VD25H #### [facility] [address] [place] [address] GFR/1.73 sq M predicted among blacks MDRD vol rate/area (S/P/Bld) 54.6 mL/min/{1.73_m2} Normal >60 [facility] Comment on above: Performed By: #### H EMDF, PT, BMP3M, PHOS3, MG3, CK3 #### [place] [address] [address] [place], [place] #### VD25H #### [facility] [address] [place] [address] GFR/1.73 sq M predicted among non-blacks MDRD vol rate/area (S/P/Bld) 45.1 mL/min/{1.73_m2} Normal >60 [facility] Comment on above: Result Comment: Sour ce- MDRD equation with creatinine calibration to IDMS(NKDEP) eGFR not recommended for drug dose adjustment Performed By: #### H EMDF, PT, BMP3M, PHOS3, MG3, CK3 #### [place] [address] [address] [place], [place] #### VD25H #### [facility] [address] [place] [address] Chloride molar conc 107 mmol/L Normal 98-107 [facility] Comment on above: Performed By: #### H EMDF, PT, BMP3M, PHOS3, MG3, CK3 #### [place] [address] [address] [place], [place] #### VD25H #### [facility] [address] [place] [address] Potassium molar conc 3.8 mmol/L Normal 3.5-5.1 [facility] Comment on above: Performed By: #### H EMDF, PT, BMP3M, PHOS3, MG3, CK3 #### [place] [address] [address] [place], [place] #### VD25H #### [facility] [address] [place] [address] Sodium molar conc 146 mmol/L High 135-145 [facility] Comment on above: Performed By: #### H EMDF, PT, BMP3M, PHOS3, MG3, CK3 #### [place] [address] [address] [place], [place] #### VD25H #### [facility] [address] [place] [address] CR Abdomen APon 07-22-2018 CR Abdomen AP Patient Name: KATHYA HOOPER Diagnostic Radiology Exam Date/Time 07/22/2018 08:02:02 EDT Exam CR Abdomen AP Ordering Physician MARIA EUGENIA PEREZ Accession Number [id number] CPT4 Codes 14649 () Reason For Exam ileus Report Supine [...] Transcribed Date and Time: 07/22/2018 9:28 Normal [facility] CR Chest Portableon 07-23-19 CR Chest Portable Patient Name: KATHYA HOOPER Diagnostic Radiology Exam Date/Time 07/22/2018 16:32:15 EDT Exam CR Chest Portable Ordering Physician MD NATE, [facility] Accession Number [id number] CPT4 Codes 33704 () Reason For Exam Thoracentesis Report Clinical [...] Transcribed Date and Time: 07/22/2018 6:46 Normal [facility] CR Chest Portable Patient Name: KATHYA HOOPER Diagnostic Radiology Exam Date/Time 07/22/2018 06:49:22 EDT Exam CR Chest Portable Ordering Physician MARIA EUGENIA PEREZ Accession Number [id number] CPT4 Codes 63756 () Reason For Exam ETT placement Report [...] Transcribed Date and Time: 07/22/2018 9:31 Normal [facility] CULTURE AND STAIN - FLUIDon 07-22-2018 CULTURE AND STAIN - FLUID CULTURE & STAIN - FLUID --> Status: F No growth at 5 days. STAIN GRAM --> Status: F Moderate polymorphonuclear cells/lpf. Moderate mononuclear cells/lpf No organisms seen. Cytocentrifugation performed. Moderate mononuclear cells/lpf No organisms seen. Cytocentrifugation performed. Normal [facility] Comment on above: Order Comment: Speci men Source Comment:Body Fluid Performed By: #### H EMDF, PT, BMP3M, PHOS3, MG3, CK3 #### [facility] [address] [place], [place] #### VD25H #### [facility] [address] [place] [address] Cell Count,Body Fluidon 06-30 Nucleated Cells 259 {cells}/uL Normal [facility] Comment on above: Performed By: #### H EMDF, PT, BMP3M, PHOS3, MG3, CK3 #### [facility] [address] [place], [place] #### VD25H #### [facility] [address] [place] [address] RBC Count Body Fld 123 {RBC}/uL Normal [facility] Comment on above: Performed By: #### H EMDF, PT, BMP3M, PHOS3, MG3, CK3 #### [place] [address] [address] [place], [place] #### VD25H #### [facility] [address] [place] [address] Fluid Type thoracentesis Normal [facility] Comment on above: Performed By: #### H EMDF, PT, BMP3M, PHOS3, MG3, CK3 #### [place] [address] [address] [place] #### VD25H #### [facility] [address] [place] [address] Glucose, Body Fluidon 2018 Fluid Type Thoracentesis Normal [facility] Comment on above: Performed By: #### H EMDF, PT, BMP3M, PHOS3, MG3, CK3 #### [place] [address] [address] [facility], [place] #### VD25H #### [facility] [address] [place] [address] Glucose, Body Fluid 136 mg/dL Normal No Range [facility] Comment on above: Performed By: #### H EMDF, PT, BMP3M, PHOS3, MG3, CK3 #### [place] [address] [address] [place], [place] #### VD25H #### [facility] [address] [place] [address] Glucose,Bedsideon 07-22-2018 Glucose mass conc 142 mg/dL High 70-100 [facility] Comment on above: Result Comment: Test performed by glucose meter. Results may be 10%-15% lower than serum/plasma values. (CLIA ID [id number]) Performed By: #### H EMDF, PT, BMP3M, PHOS3, MG3, CK3 #### [facility] [address] [place] [address] #### VD25H #### [facility] [address] [place] [address] Glucose mass conc 127 mg/dL High 70-100 [facility] Comment on above: Result Comment: Test performed by glucose meter. Results may be 10%-15% lower than serum/plasma values. (CLIA ID [id number]) Performed By: #### H EMDF, PT, BMP3M, PHOS3, MG3, CK3 #### [facility] [address] [place] [id number] #### VD25H #### [facility] [address] [place] [address] Glucose mass conc 139 mg/dL High 70-100 [facility] Comment on above: Result Comment: Test performed by glucose meter. Results may be 10%-15% lower than serum/plasma values. (CLIA ID [id number]) Performed By: #### H EMDF, PT, BMP3M, PHOS3, MG3, CK3 #### [facility] [address] [place] [address] #### VD25H #### [facility] [address] [place] [address] Glucose mass conc 124 mg/dL High 70-100 [facility] Comment on above: Result Comment: Test performed by glucose meter. Results may be 10%-15% lower than serum/plasma values. (CLIA ID [id number]) Performed By: #### H EMDF, PT, BMP3M, PHOS3, MG3, CK3 #### [address] #### VD25H #### [facility] [address] [place] [address] Glucose mass conc 128 mg/dL High 70-100 [facility] Comment on above: Result Comment: Test performed by glucose meter. Results may be 10%-15% lower than serum/plasma values. (CLIA ID [id number]) Performed By: #### H EMDF, PT, BMP3M, PHOS3, MG3, CK3 #### [address] #### VD25H #### [facility] [address] [place] [address] Glucose mass conc 113 mg/dL High 70-100 [facility] Comment on above: Result Comment: Test performed by glucose meter. Results may be 10%-15% lower than serum/plasma values. (CLIA ID [id number]) Performed By: #### H EMDF, PT, BMP3M, PHOS3, MG3, CK3 #### [address] #### VD25H #### [facility] [address] [place] [address] Hemogram w/ Autodiffon 07-22 Abs Baso Cnt 0.1 10*3/uL Normal 0.0-0.2 [facility] Comment on above: Performed By: #### H EMDF, PT, BMP3M, PHOS3, MG3, CK3 #### [address] #### VD25H #### [facility] [address] [place] [address] Abs Neutrophile Cnt 15.2 10*3/uL High 1.8-7.0 [facility] Comment on above: Performed By: #### H EMDF, PT, BMP3M, PHOS3, MG3, CK3 #### [address] #### VD25H #### [facility] [address] [place] [address] Basophils/100 WBC (Bld) 0.6 % Normal 0.0-2.0 [facility] Comment on above: Performed By: #### H EMDF, PT, BMP3M, PHOS3, MG3, CK3 #### [facility] [address] [place], [place] #### VD25H #### [facility] [address] [place] [address] Eosinophils #/vol (Bld) 0.2 10*3/uL Normal 0.0-0.5 [facility] Comment on above: Performed By: #### H EMDF, PT, BMP3M, PHOS3, MG3, CK3 #### [address] #### VD25H #### [facility] [address] [place] [address] Eosinophils/100 WBC (Bld) 0.9 % Low 1.0-6.0 [facility] Comment on above: Performed By: #### H EMDF, PT, BMP3M, PHOS3, MG3, CK3 #### [address] [place], [place] #### VD25H #### [facility] [address] [place] [address] Erythrocyte distribution width Ratio (RBC) 13.9 % Normal 11.5-14.5 [facility] Comment on above: Performed By: #### H EMDF, PT, BMP3M, PHOS3, MG3, CK3 #### [address] #### VD25H #### [facility] [address] [place] [address] Granulocytes/100 WBC (Bld) 88.8 % High 40.0-80.0 [facility] Comment on above: Performed By: #### H EMDF, PT, BMP3M, PHOS3, MG3, CK3 #### [address] [place], [place] #### VD25H #### [facility] [address] [place] [address] Hematocrit Volume Fraction (Bld) 31.6 % Low 40.0-52.0 [facility] Comment on above: Performed By: #### H EMDF, PT, BMP3M, PHOS3, MG3, CK3 #### [address] [place], [place] #### VD25H #### [facility] [address] [place] [address] Hemoglobin mass conc (Bld) 10.9 g/dL Low 13.0-18.0 [facility] Comment on above: Performed By: #### H EMDF, PT, BMP3M, PHOS3, MG3, CK3 #### [address] #### VD25H #### [facility] [address] [place] [address] Lymphocytes #/vol (Bld) 1.1 10*3/uL Normal 1.0-4.3 [facility] Comment on above: Performed By: #### H EMDF, PT, BMP3M, PHOS3, MG3, CK3 #### [address] #### VD25H #### [facility] [address] [place] [address] Lymphocytes/100 WBC (Bld) 6.2 % Low 20.0-40.0 [facility] Comment on above: Performed By: #### H EMDF, PT, BMP3M, PHOS3, MG3, CK3 #### [address] #### VD25H #### [facility] [address] [place] [address] MCH Entitic mass (RBC) 31.1 pg Normal 26.0-34.0 [facility] Comment on above: Performed By: #### H EMDF, PT, BMP3M, PHOS3, MG3, CK3 #### [address] #### VD25H #### [facility] [address] [place] [address] MCHC mass conc (RBC) 34.6 % Normal 32.0-36.0 [facility] Comment on above: Performed By: #### H EMDF, PT, BMP3M, PHOS3, MG3, CK3 #### [address] #### VD25H #### [facility] [address] [place] [address] MCV Entitic volume (RBC) 89.9 fL Normal 80.0-98.0 [facility] Comment on above: Performed By: #### H EMDF, PT, BMP3M, PHOS3, MG3, CK3 #### [address] #### VD25H #### [facility] [address] [place] [address] Monocytes #/vol (Bld) 0.6 10*3/uL Normal 0.0-0.8 [facility] Comment on above: Performed By: #### H EMDF, PT, BMP3M, PHOS3, MG3, CK3 #### [address] #### VD25H #### [facility] [address] [place] [address] Monocytes/100 WBC (Bld) 3.5 % Normal 2.0-10.0 [facility] Comment on above: Performed By: #### H EMDF, PT, BMP3M, PHOS3, MG3, CK3 #### [address] #### VD25H #### [facility] [address] [place] [address] Platelet mean volume Entitic volume (Bld) 7.9 fL Normal 7.4-10.4 [facility] Comment on above: Performed By: #### H EMDF, PT, BMP3M, PHOS3, MG3, CK3 #### [place] [address] [address] [place], [place] #### VD25H #### [facility] [address] [place] [address] Platelets #/vol (Bld) 299 10*3/uL Normal 140-440 [facility] Comment on above: Performed By: #### H EMDF, PT, BMP3M, PHOS3, MG3, CK3 #### [address] #### VD25H #### [facility] [address] [place] [address] RBC #/vol (Bld) 3.52 10*6/uL Low 4.40-5.90 [facility] Comment on above: Performed By: #### H EMDF, PT, BMP3M, PHOS3, MG3, CK3 #### [address] #### VD25H #### [facility] [address] [place] [address] WBC #/vol (Bld) 17.1 10*3/uL High 3.6-10.7 [facility] Comment on above: Performed By: #### H EMDF, PT, BMP3M, PHOS3, MG3, CK3 #### [place] [address] [address] [place], [place] #### VD25H #### [facility] [address] [place] [address] LDH, Body Fluidon 07-22-2018 LDH, Body Fluid 232 U/L Normal No Range [facility] Comment on above: Performed By: #### H EMDF, PT, BMP3M, PHOS3, MG3, CK3 #### [address] #### VD25H #### [facility] [address] [place] [address] Magnesiumon 07-22-2018 Magnesium mass conc 2.6 mg/dL High 1.6-2.3 [facility] Comment on above: Performed By: #### H EMDF, PT, BMP3M, PHOS3, MG3, CK3 #### [facility] [address] [place] [address] #### VD25H #### [employer] [facility] [address] [place] [address] Medical Cytology 9 Medical Cytology [facility] [id number] DEPARTMENT OF PATHOLOGY AND [facility] LABORATORY MEDICINE [address] [place] [address] FINAL MEDICAL CYTOLOGY REPORT NAME: KATHYA HOOPER : 1955 63 Y M BILLING NO.: [id number] LOCATION: [facility] T2 INPAT T209 PROCEDURE 07/22/2018 DATE: PHYSICIAN: [...] . . . . . . 1 [facility] Screened by CYNDI LILLY M.D. The following statement applies to all immunohistochemistry, in situ hybridization, molecular studies, and immunofluorescence testing. The use of one or more reagents in the above tests is regulated as an analyte specific reagent (ASR). These tests were developed and their performance characteristics determined by the clinical laboratories of [facility]. They have not been cleared by the [...] negativity on decalcified specimens. Case reviewed at [facility] [address] [place] [address]. DEPARTMENT OF PATHOLOGY AND LABORATORY MEDICINE [place], [place] Normal [facility] Phosphoruson 07-22-2018 Phosphate mass conc 4.6 mg/dL High 2.5-4.5 [facility] Comment on above: Performed By: #### H EMDF, PT, BMP3M, PHOS3, MG3, CK3 #### [address] #### VD25H #### [facility] [address] [place] [address] Procalcitoninon 07-22-2018 Protein mass conc 0.27 ng/mL Abnormal <0.10 [facility] Comment on above: Result Comment: (Cor rect ref.range is <0.09 ng/mL) Test performed: [facility] [place], [place]. Performed By: #### H EMDF, PT, BMP3M, PHOS3, MG3, CK3 #### [address] #### VD25H #### [facility] [address] [place] [address] Interpretation See Below Normal [facility] Comment on above: Result Comment: PCT <0.50 = Low risk of severe sepsis and/or septic shock. PCT >2.00 = High risk of severe sepsis and/or septic shock. Performed By: #### H EMDF, PT, BMP3M, PHOS3, MG3, CK3 #### [facility] [address] [place], [place] #### VD25H #### [facility] [address] [facility] [place] [address] STAIN ACID-FASTon 07-22-2018 STAIN ACID-FAST STAIN ACID-FAST --> Status: F No acid-fast bacilli seen in smear. - Method: AFB by Kinyoun Stain - Method: AFB by Kinyoun Stain Normal [facility] Comment on above: Performed By: #### H EMDF, PT, BMP3M, PHOS3, MG3, CK3 #### [address] #### VD25H #### [facility] [address] [facility] [place] [address] Triglycerideon 07-22-2018 Triglyceride mass conc 96 mg/dL Normal <150 [facility] Comment on above: Performed By: #### H EMDF, PT, BMP3M, PHOS3, MG3, CK3 #### [address] #### VD25H #### [facility] [address] [facility] [place] [address] US Thora-Aspir Pleura w/ Evelin geon 07-22-2018 US Thora-Aspir Pleura w/ Image Patient Name: KATHYA HOOPER Ultrasound Exam Date/Time 07/22/2018 14:23:28 EDT Exam US Thora-Aspir Pleura w/ Image Ordering Physician MARIA EUGENIA PEREZ Accession Number [id number] CPT4 Codes 95359 () Reason For Exam L thoracentesis Report Reasons for examination: Left pleural effusion. Respiratory insufficiency. Ultrasound was performed of the left hemithorax, localizing the pleural fluid. After obtaining informed consent, sterile preparation, draping, and local anesthetic administration, thoracentesis was performed under direct ultrasonographic guidance with a 5 [place] Yueh needle/catheter. A total of 300 mL [...] Transcribed Date and Time: 07/22/2018 2:55 Normal [facility] pH,Misc Body Fluidon 019 pH,Misc 7.996 Normal None Available [facility] Comment on above: Performed By: #### H EMDF, PT, BMP3M, PHOS3, MG3, CK3 #### [facility] [address] [place] [address] #### VD25H #### [facility] [address] [place] [address] Arterial Blood Gaseson 07-21 CO2 molar conc 29.8 mmol/L High 23.0-27.0 [facility] Comment on above: Performed By: #### T SGL #### [facility] [address] [place] [address] HCO3 molar conc (Bld) 28.7 mmol/L High 21.0-25.0 [facility] Comment on above: Performed By: #### T SGL #### [address] [address] [place] [address] Hemoglobin mass conc (Bld) 11.7 g/dL Normal [facility] Comment on above: Performed By: #### T SGL #### [facility] [address] [place] [address] Oxygen ppres (Bld) 144.9 mm[Hg] High 80.0-100.0 [facility] Comment on above: Performed By: #### T SGL #### [facility] [address] [place] [address] Oxygen saturation in Blood 98.4 % Normal 95.0-100.0 [facility] Comment on above: Performed By: #### T SGL #### [facility] [address] [place] [address] pCO2 36.8 mm[Hg] Normal 35.0-45.0 [facility] Comment on above: Performed By: #### T SGL #### [facility] [address] [place] [address] pH (Bld) 7.510 High 7.350-7.450 [facility] Comment on above: Performed By: #### T SGL #### [facility] [address] [place] [address] Std Base Excess 5.5 mmol/L High -3.0-3.0 [facility] Comment on above: Performed By: #### T SGL #### [facility] [address] [place] [address] FIO2 .50 Normal [facility] Comment on above: Performed By: #### T SGL #### [facility] [address] [place] [address] CR Abdomen APon 07-21-2018 CR Abdomen AP Patient Name: KATHYA HOOPER Diagnostic Radiology Exam Date/Time 07/21/2018 06:41:07 EDT Exam CR Abdomen AP Ordering Physician [id number] AGUILERA Accession Number [id number] CPT4 Codes 50496 () Reason For Exam ileus Report Reason [...] Transcribed Date and Time: 07/21/2018 7:23 Normal [facility] CR Chest Portableon 07-22-19 CR Chest Portable Patient Name: KATHYA HOOPER Diagnostic Radiology Exam Date/Time 07/21/2018 06:40:50 EDT Exam CR Chest Portable Ordering Physician MARIA EUGENIA PEREZ Accession Number [id number] CPT4 Codes 71128 () Reason For Exam ETT placement Report [...] NICHOLAS Transcribed Date and Time: 07/21/2018 5:38 [facility] CR Chest Portable Patient Name: KATHYA HOOPER Diagnostic Radiology Exam Date/Time 07/21/2018 01:11:50 EDT Exam CR Chest Portable Ordering Physician MD GRIFFIN NICHOLAS Accession Number [id number] CPT4 Codes 35578 () Reason For Exam s/p bronch Report [...] Transcribed Date and Time: 07/21/2018 1:26 Normal [facility] Comp Metabolic Panelon 07-21 Calcium mass conc 7.9 mg/dL Low 8.4-10.4 [facility] Comment on above: Performed By: #### T SGL #### [facility] [address] [place] [address] ALP enzyme act/vol 85 U/L Normal 38-126 [facility] Comment on above: Performed By: #### T SGL #### [facility] [address] [place] [address] ALT enzyme act/vol 105 U/L High 13-69 [facility] Comment on above: Performed By: #### T SGL #### [facility] [address] [place] [address] Anion gap molar conc 8 Normal [facility] Comment on above: Performed By: #### T SGL #### [facility] [address] [place] [address] AST enzyme act/vol 78 U/L High 15-46 [facility] Comment on above: Performed By: #### T SGL #### [facility] [address] [place] [address] Bilirubin mass conc 1.1 mg/dL Normal 0.2-1.3 [facility] Comment on above: Performed By: #### T SGL #### [facility] [address] [place] [address] CO2 molar conc 33 mmol/L High 22-30 [facility] Comment on above: Performed By: #### T SGL #### [facility] [address] [place] [address] Creatinine mass conc 0.90 mg/dL Normal 0.52-1.25 [facility] Comment on above: Performed By: #### T SGL #### [facility] [address] [place] [address] GFR/1.73 sq M predicted among blacks MDRD vol rate/area (S/P/Bld) mL/min/{1.73_m2} Normal >60 [facility] Comment on above: Performed By: #### T SGL #### [address] [place] [address] GFR/1.73 sq M predicted among non-blacks MDRD vol rate/area (S/P/Bld) mL/min/{1.73_m2} Normal >60 [facility] Comment on above: Result Comment: Sour ce- MDRD equation with creatinine calibration to IDMS(NKDEP) eGFR not recommended for drug dose adjustment Performed By: #### T SGL #### [address] [place] [address] Glucose mass conc 113 mg/dL High 70-100 [facility] Comment on above: Performed By: #### T SGL #### [facility] [address] [place] [address] Protein mass conc 5.6 g/dL Low 6.3-8.2 [facility] Comment on above: Performed By: #### T SGL #### [facility] [address] [place] [address] Urea nitrogen mass conc 28 mg/dL High 7-20 [facility] Comment on above: Performed By: #### T SGL #### [address] [place] [address] Chloride molar conc 104 mmol/L Normal 98-107 [facility] Comment on above: Performed By: #### T SGL #### [address] [place] [address] Potassium molar conc 3.6 mmol/L Normal 3.5-5.1 [facility] Comment on above: Performed By: #### T SGL #### [facility] [address] [place] [address] Sodium molar conc 145 mmol/L Normal 135-145 [facility] Comment on above: Performed By: #### T SGL #### [facility] [address] [place] [address] Albumin mass conc 2.8 g/dL Low 3.5-5.0 [facility] Comment on above: Performed By: #### T SGL #### [facility] [address] [place] [address] Glucose,Bedsideon 07-21-2018 Glucose mass conc 124 mg/dL High 70-100 [facility] Comment on above: Result Comment: Test performed by glucose meter. Results may be 10%-15% lower than serum/plasma values. (CLIA ID [id number]) Performed By: #### H EMDF, PT, BMP3M, PHOS3, MG3, CK3 #### [facility] [address] [place] [address] #### VD25H #### [facility] [address] [place] [address] Glucose mass conc 151 mg/dL High 70-100 [facility] Comment on above: Result Comment: Test performed by glucose meter. Results may be 10%-15% lower than serum/plasma values. (CLIA ID [id number]) Performed By: #### H EMDF, PT, BMP3M, PHOS3, MG3, CK3 #### [facility] [address] [address] #### VD25H #### [facility] [address] [place] [address] Glucose mass conc 127 mg/dL High 70-100 [facility] Comment on above: Result Comment: Test performed by glucose meter. Results may be 10%-15% lower than serum/plasma values. (CLIA ID [id number]) Performed By: #### T SGL #### [address] [place] [address] Glucose mass conc 113 mg/dL High 70-100 [facility] Comment on above: Result Comment: Test performed by glucose meter. Results may be 10%-15% lower than serum/plasma values. (CLIA ID [id number]) Performed By: #### A DDON #### [address] [place] [address] Hemogram w/ Autodiffon 07-21 Abs Baso Cnt 0.1 10*3/uL Normal 0.0-0.2 [facility] Comment on above: Performed By: #### T SGL #### [address] [address] Abs Neutrophile Cnt 11.0 10*3/uL High 1.8-7.0 [facility] Comment on above: Performed By: #### T SGL #### [address] [place] [address] Basophils/100 WBC (Bld) 0.5 % Normal 0.0-2.0 [facility] Comment on above: Performed By: #### T SGL #### [address] [address] Eosinophils #/vol (Bld) 0.3 10*3/uL Normal 0.0-0.5 [facility] Comment on above: Performed By: #### T SGL #### [address] [place] [address] Eosinophils/100 WBC (Bld) 1.9 % Normal 1.0-6.0 [facility] Comment on above: Performed By: #### T SGL #### [address] [address] Erythrocyte distribution width Ratio (RBC) 13.7 % Normal 11.5-14.5 [facility] Comment on above: Performed By: #### T SGL #### [address] [address] Granulocytes/100 WBC (Bld) 81.0 % High 40.0-80.0 [facility] Comment on above: Performed By: #### T SGL #### [address] [place] [address] Hematocrit Volume Fraction (Bld) 32.1 % Low 40.0-52.0 [facility] Comment on above: Performed By: #### T SGL #### [address] [place] [address] Hemoglobin mass conc (Bld) 10.7 g/dL Low 13.0-18.0 [facility] Comment on above: Performed By: #### T SGL #### [address] [place] [address] Lymphocytes #/vol (Bld) 1.3 10*3/uL Normal 1.0-4.3 [facility] Comment on above: Performed By: #### T SGL #### [address] [place] [address] Lymphocytes/100 WBC (Bld) 9.8 % Low 20.0-40.0 [facility] Comment on above: Performed By: #### T SGL #### [address] [place] [address] MCH Entitic mass (RBC) 29.0 pg Normal 26.0-34.0 [facility] Comment on above: Performed By: #### T SGL #### [address] [place] [address] MCHC mass conc (RBC) 33.4 % Normal 32.0-36.0 [facility] Comment on above: Performed By: #### T SGL #### [address] [place] [address] MCV Entitic volume (RBC) 86.9 fL Normal 80.0-98.0 [facility] Comment on above: Performed By: #### T SGL #### [address] [place] [address] Monocytes #/vol (Bld) 0.9 10*3/uL High 0.0-0.8 [facility] Comment on above: Performed By: #### T SGL #### [address] [place] [address] Monocytes/100 WBC (Bld) 6.8 % Normal 2.0-10.0 [facility] Comment on above: Performed By: #### T SGL #### [facility] [address] [place] [address] Platelet mean volume Entitic volume (Bld) 7.4 fL Normal 7.4-10.4 [facility] Comment on above: Performed By: #### T SGL #### [facility] [address] [facility] [place] [address] Platelets #/vol (Bld) 367 10*3/uL Normal 140-440 [facility] Comment on above: Performed By: #### T SGL #### [facility] [address] [place] [address] RBC #/vol (Bld) 3.69 10*6/uL Low 4.40-5.90 [facility] Comment on above: Performed By: #### T SGL #### [facility] [address] [place] [address] WBC #/vol (Bld) 13.6 10*3/uL High 3.6-10.7 [facility] Comment on above: Performed By: #### T SGL #### [facility] [address] [place] [address] Magnesiumon 07-21-2018 Magnesium mass conc 2.6 mg/dL High 1.6-2.3 [facility] Comment on above: Performed By: #### T SGL #### [facility] [address] [place] [address] Phosphoruson 07-21-2018 Phosphate mass conc 4.2 mg/dL Normal 2.5-4.5 [facility] Comment on above: Performed By: #### T SGL #### [facility] [address] [place] [address] Triglycerideon 07-21-2018 Triglyceride mass conc 105 mg/dL Normal <150 [facility] Comment on above: Performed By: #### T SGL #### [facility] [address] [place] [address] Add on test from HISon 07-20 Add on test from HIS Accepted Normal [facility] Comment on above: Result Comment: Spec imen available & acceptable for analysis. Performed By: #### A DDON #### [facility] [address] [place] [address] Basic Metabolic Panelon 06-30 Calcium mass conc 7.7 mg/dL Low 8.4-10.4 [facility] Comment on above: Performed By: #### A DDON #### [facility] [address] [place] [address] Glucose mass conc 96 mg/dL Normal 70-100 [facility] Comment on above: Performed By: #### A DDON #### [facility] [address] [place] [address] Urea nitrogen mass conc 22 mg/dL High 7-20 [facility] Comment on above: Performed By: #### A DDON #### [address] [place] [address] Anion gap molar conc 10 Normal [facility] Comment on above: Performed By: #### A DDON #### [address] [place] [address] CO2 molar conc 29 mmol/L Normal 22-30 [facility] Comment on above: Performed By: #### A DDON #### [address] [place] [address] Creatinine mass conc 0.87 mg/dL Normal 0.52-1.25 [facility] Comment on above: Performed By: #### A DDON #### [facility] [address] [place] [address] GFR/1.73 sq M predicted among blacks MDRD vol rate/area (S/P/Bld) mL/min/{1.73_m2} Normal >60 [facility] Comment on above: Performed By: #### A DDON #### [facility] [address] [place], [place] GFR/1.73 sq M predicted among non-blacks MDRD vol rate/area (S/P/Bld) mL/min/{1.73_m2} Normal >60 [facility] Comment on above: Result Comment: Sour ce- MDRD equation with creatinine calibration to IDMS(NKDEP) eGFR not recommended for drug dose adjustment Performed By: #### A DDON #### [facility] [address] [place] [address] Potassium molar conc 3.6 mmol/L Normal 3.5-5.1 [facility] Comment on above: Performed By: #### A DDON #### [facility] [address] [place] [address] Chloride molar conc 105 mmol/L Normal 98-107 [facility] Comment on above: Performed By: #### A DDON #### [facility] [address] [place] [address] Sodium molar conc 144 mmol/L Normal 135-145 [facility] Comment on above: Performed By: #### A DDON #### [facility] [address] [place] [address] CR Abdomen APon 07-20-2018 CR Abdomen AP Patient Name: KATHYA HOOPER Diagnostic Radiology Exam Date/Time 07/20/2018 08:39:45 EDT Exam CR Abdomen AP Ordering Physician [id number] JOYA PERRY Accession Number [id number] CPT4 Codes 99119 () Reason For Exam ileus Report Clinical [...] Ordering Physician MARIA EUGENIA PEREZ Accession Number [id number] CPT4 Codes 79641 () Reason For Exam ETT placement Report [...] Transcribed Date and Time: 07/20/2018 9:28 Normal [facility] CT Abdomen/Pelvis w/ Contras ton 07-20-2018 CT Abdomen/Pelvis w/ Contrast Patient Name: KATHYA HOOPER CT Exam Date/Time 07/20/2018 11:30:[address] Abdomen/Pelvis w/ IV Contrast (IV Onl Ordering Physician JOYA ROJAS Accession Number [id number] CPT4 Codes 56478 (CT Abdomen/Pelvis w/ IV Contrast (IV Onl) [...] Transcribed Date and Time: 07/20/2018 1:10 Normal [facility] CT Chest w/ Contraston 07-20 CT Chest w/ Contrast Patient Name: KATHYA RAY CT Exam Date/Time 07/20/2018 11:30:[address] Chest w/ Contrast Ordering Physician JOYA ROJAS Accession Number [id number] CPT4 Codes 59129 (), Q9967 (CT ISOVUE [id number]) Reason For Exam SOB, possible pneumonia Report [...] Transcribed Date and Time: 07/20/2018 1:28 Normal [facility] Glucose,Bedsideon 07-20-2018 Glucose mass conc 128 mg/dL High 70-100 [facility] Comment on above: Result Comment: Test performed by glucose meter. Results may be 10%-15% lower than serum/plasma values. (CLIA ID [id number]) Performed By: #### A DDON #### [address] [address] [place], [place] Hemogram w/ Autodiffon 07-20 Abs Baso Cnt 0.1 10*3/uL Normal 0.0-0.2 [facility] Comment on above: Performed By: #### H EMDF, PT, BMP3M, PHOS3, MG3, CK3 #### [address] [address] [place], [place] #### VD25H #### [facility] [address] [place] [address] Abs Neutrophile Cnt 13.0 10*3/uL High 1.8-7.0 [facility] Comment on above: Performed By: #### H EMDF, PT, BMP3M, PHOS3, MG3, CK3 #### [facility] [address] [place], [place] #### VD25H #### [facility] [address] [place] [address] Basophils/100 WBC (Bld) 0.3 % Normal 0.0-2.0 [facility] Comment on above: Performed By: #### H EMDF, PT, BMP3M, PHOS3, MG3, CK3 #### [address] #### VD25H #### [facility] [address] [place] [address] Eosinophils #/vol (Bld) 0.3 10*3/uL Normal 0.0-0.5 [facility] Comment on above: Performed By: #### H EMDF, PT, BMP3M, PHOS3, MG3, CK3 #### [facility] [address] [place], [place] #### VD25H #### [facility] [address] [place] [address] Eosinophils/100 WBC (Bld) 1.9 % Normal 1.0-6.0 [facility] Comment on above: Performed By: #### H EMDF, PT, BMP3M, PHOS3, MG3, CK3 #### [address] [place], [place] #### VD25H #### [facility] [address] [place] [address] Erythrocyte distribution width Ratio (RBC) 13.3 % Normal 11.5-14.5 [facility] Comment on above: Performed By: #### H EMDF, PT, BMP3M, PHOS3, MG3, CK3 #### [address] [place], [place] #### VD25H #### [facility] [address] [place] [address] Granulocytes/100 WBC (Bld) 81.8 % High 40.0-80.0 [facility] Comment on above: Performed By: #### H EMDF, PT, BMP3M, PHOS3, MG3, CK3 #### [address] [place], [place] #### VD25H #### [facility] [address] [place] [address] Hematocrit Volume Fraction (Bld) 33.6 % Low 40.0-52.0 [facility] Comment on above: Performed By: #### H EMDF, PT, BMP3M, PHOS3, MG3, CK3 #### [address] [address] [address] [place], [place] #### VD25H #### [facility] [address] [place] [address] Hemoglobin mass conc (Bld) 11.4 g/dL Low 13.0-18.0 [facility] Comment on above: Performed By: #### H EMDF, PT, BMP3M, PHOS3, MG3, CK3 #### [address] [place], [place] #### VD25H #### [facility] [address] [place] [address] Lymphocytes #/vol (Bld) 1.5 10*3/uL Normal 1.0-4.3 [facility] Comment on above: Performed By: #### H EMDF, PT, BMP3M, PHOS3, MG3, CK3 #### [address] #### VD25H #### [facility] [address] [place] [address] Lymphocytes/100 WBC (Bld) 9.2 % Low 20.0-40.0 [facility] Comment on above: Performed By: #### H EMDF, PT, BMP3M, PHOS3, MG3, CK3 #### [address] #### VD25H #### [facility] [address] [place] [address] MCH Entitic mass (RBC) 29.3 pg Normal 26.0-34.0 [facility] Comment on above: Performed By: #### H EMDF, PT, BMP3M, PHOS3, MG3, CK3 #### [address] #### VD25H #### [facility] [address] [place] [address] MCHC mass conc (RBC) 33.9 % Normal 32.0-36.0 [facility] Comment on above: Performed By: #### H EMDF, PT, BMP3M, PHOS3, MG3, CK3 #### [facility] [address] [place], [place] #### VD25H #### [facility] [address] [place] [address] MCV Entitic volume (RBC) 86.5 fL Normal 80.0-98.0 [facility] Comment on above: Performed By: #### H EMDF, PT, BMP3M, PHOS3, MG3, CK3 #### [address] [place], [place] #### VD25H #### [facility] [address] [place] [address] Monocytes #/vol (Bld) 1.1 10*3/uL High 0.0-0.8 [facility] Comment on above: Performed By: #### H EMDF, PT, BMP3M, PHOS3, MG3, CK3 #### [address] #### VD25H #### [facility] [address] [place] [address] Monocytes/100 WBC (Bld) 6.8 % Normal 2.0-10.0 [facility] Comment on above: Performed By: #### H EMDF, PT, BMP3M, PHOS3, MG3, CK3 #### [address] #### VD25H #### [facility] [address] [place] [address] Platelet mean volume Entitic volume (Bld) 7.5 fL Normal 7.4-10.4 [facility] Comment on above: Performed By: #### H EMDF, PT, BMP3M, PHOS3, MG3, CK3 #### [address] [place], [place] #### VD25H #### [facility] [address] [place] [address] Platelets #/vol (Bld) 375 10*3/uL Normal 140-440 [facility] Comment on above: Performed By: #### H EMDF, PT, BMP3M, PHOS3, MG3, CK3 #### [address] [place], [place] #### VD25H #### [facility] [address] [place] [address] RBC #/vol (Bld) 3.88 10*6/uL Low 4.40-5.90 [facility] Comment on above: Performed By: #### H EMDF, PT, BMP3M, PHOS3, MG3, CK3 #### [address] [place], [place] #### VD25H #### [facility] [address] [place] [address] WBC #/vol (Bld) 15.9 10*3/uL High 3.6-10.7 [facility] Comment on above: Performed By: #### H EMDF, PT, BMP3M, PHOS3, MG3, CK3 #### [address] [address] [place], [place] #### VD25H #### [facility] [address] [place] [address] Phosphoruson 07-20-2018 Phosphate mass conc 5.5 mg/dL High 2.5-4.5 [facility] Comment on above: Performed By: #### A DDON #### [address] Add on test from HISon 07-19 Add on test from HIS Accepted Normal [facility] Comment on above: Result Comment: Spec imen available & acceptable for analysis. Performed By: #### H EMDF, PT, BMP3M, PHOS3, MG3, CK3 #### [address] [address] [place], [place] #### VD25H #### [facility] [address] [place] [address] Arterial Blood Gaseson 07-19 CO2 molar conc 31.5 mmol/L High 23.0-27.0 [facility] Comment on above: Performed By: #### H EMDF, PT, BMP3M, PHOS3, MG3, CK3 #### [address] #### VD25H #### [facility] [address] [place] [address] HCO3 molar conc (Bld) 30.2 mmol/L High 21.0-25.0 [facility] Comment on above: Performed By: #### H EMDF, PT, BMP3M, PHOS3, MG3, CK3 #### [address] #### VD25H #### [facility] [address] [place] [facility] [address] Hemoglobin mass conc (Bld) 11.7 g/dL Normal ScreenOnly [facility] Comment on above: Performed By: #### H EMDF, PT, BMP3M, PHOS3, MG3, CK3 #### [address] #### VD25H #### [facility] [address] [place] [address] Oxygen ppres (Bld) 85.1 mm[Hg] Normal 80.0-100.0 [facility] Comment on above: Performed By: #### H EMDF, PT, BMP3M, PHOS3, MG3, CK3 #### [address] #### VD25H #### [facility] [address] [place] [address] Oxygen saturation in Blood 95.9 % Normal 95.0-100.0 [facility] Comment on above: Performed By: #### H EMDF, PT, BMP3M, PHOS3, MG3, CK3 #### [address] #### VD25H #### [facility] [address] [place] [address] pCO2 43.6 mm[Hg] Normal 35.0-45.0 [facility] Comment on above: Performed By: #### H EMDF, PT, BMP3M, PHOS3, MG3, CK3 #### [facility] [address] [place], [place] #### VD25H #### [facility] [address] [place] [address] pH (Bld) 7.458 High 7.350-7.450 [facility] Comment on above: Performed By: #### H EMDF, PT, BMP3M, PHOS3, MG3, CK3 #### [address] [place], [place] #### VD25H #### [facility] [address] [place] [address] Std Base Excess 5.7 mmol/L High -3.0-3.0 [facility] Comment on above: Performed By: #### H EMDF, PT, BMP3M, PHOS3, MG3, CK3 #### [address] [place], [place] #### VD25H #### [facility] [address] [place] [address] FIO2 40% Normal [facility] Comment on above: Performed By: #### H EMDF, PT, BMP3M, PHOS3, MG3, CK3 #### [address] #### VD25H #### [facility] [address] [place] [address] Basic Metabolic Panelon 03-2 Calcium mass conc 7.5 mg/dL Low 8.4-10.4 [facility] Comment on above: Performed By: #### H EMDF, PT, BMP3M, PHOS3, MG3, CK3 #### [address] [place], [place] #### VD25H #### [facility] [address] [place] [address] Glucose mass conc 274 mg/dL High 70-100 [facility] Comment on above: Performed By: #### H EMDF, PT, BMP3M, PHOS3, MG3, CK3 #### [address] [place] #### VD25H #### [facility] [address] [place] [address] Anion gap molar conc 6 Normal [facility] Comment on above: Performed By: #### H EMDF, PT, BMP3M, PHOS3, MG3, CK3 #### [address] [place], [place] #### VD25H #### [facility] [address] [place] [address] CO2 molar conc 31 mmol/L High 22-30 [facility] Comment on above: Performed By: #### H EMDF, PT, BMP3M, PHOS3, MG3, CK3 #### [address] #### VD25H #### [facility] [address] [place] [address] Creatinine mass conc 0.64 mg/dL Normal 0.52-1.25 [facility] Comment on above: Performed By: #### H EMDF, PT, BMP3M, PHOS3, MG3, CK3 #### [address] #### VD25H #### [facility] [address] [place] [address] GFR/1.73 sq M predicted among blacks MDRD vol rate/area (S/P/Bld) mL/min/{1.73_m2} Normal >60 [facility] Comment on above: Performed By: #### H EMDF, PT, BMP3M, PHOS3, MG3, CK3 #### [address] [place], [place] #### VD25H #### [facility] [address] [place] [address] GFR/1.73 sq M predicted among non-blacks MDRD vol rate/area (S/P/Bld) mL/min/{1.73_m2} Normal >60 [facility] Comment on above: Result Comment: Sour ce- MDRD equation with creatinine calibration to IDMS(NKDEP) eGFR not recommended for drug dose adjustment Performed By: #### H EMDF, PT, BMP3M, PHOS3, MG3, CK3 #### [facility] [address] [place], [place] #### VD25H #### [facility] [address] [place] [address] Urea nitrogen mass conc 15 mg/dL Normal 7-20 [facility] Comment on above: Performed By: #### H EMDF, PT, BMP3M, PHOS3, MG3, CK3 #### [address] [place] #### VD25H #### [facility] [address] [place] [address] Chloride molar conc 105 mmol/L Normal 98-107 [facility] Comment on above: Performed By: #### H EMDF, PT, BMP3M, PHOS3, MG3, CK3 #### [address] [place] #### VD25H #### [facility] [address] [place] [address] Potassium molar conc 4.3 mmol/L Normal 3.5-5.1 [facility] Comment on above: Performed By: #### H EMDF, PT, BMP3M, PHOS3, MG3, CK3 #### [address] [address] [facility] [place] #### VD25H #### [facility] [address] [place] [address] Sodium molar conc 141 mmol/L Normal 135-145 [facility] Comment on above: Performed By: #### H EMDF, PT, BMP3M, PHOS3, MG3, CK3 #### [address] [place] #### VD25H #### [facility] [address] [place] [address] CR Abdomen APon 07-19-2018 CR Abdomen AP Patient Name: KATHYA HOOPER Diagnostic Radiology Exam Date/Time 07/19/2018 06:44:12 EDT Exam CR Abdomen AP Ordering Physician JOYA ROJAS Accession Number [id number] CPT4 Codes 64217 () Reason For Exam ileus Report Abdomen: [...] Transcribed Date and Time: 07/19/2018 7:46 Normal [facility] CR Chest Portableon 07-20-19 19 CR Chest Portable Patient Name: KATHYA HOOPER Diagnostic Radiology Exam Date/Time 07/19/2018 06:43:52 EDT Exam CR Chest Portable Ordering Physician MARIA EUGENIA PEREZ Accession Number [id number] CPT4 Codes 96895 () Reason For Exam ETT placement Report [...] Transcribed Date and Time: 07/19/2018 7:44 Normal [facility] Glucose,Bedsideon 07-19-2018 Glucose mass conc 95 mg/dL Normal 70-100 [facility] Comment on above: Result Comment: Test performed by glucose meter. Results may be 10%-15% lower than serum/plasma values. (CLIA ID [id number]) Performed By: #### H EMDF, PT, BMP3M, PHOS3, MG3, CK3 #### [facility] [address] [place], [place] #### VD25H #### [facility] [address] [place] [address] Hemogram w/ Autodiffon 07-19 Abs Baso Cnt 0.1 10*3/uL Normal 0.0-0.2 [facility] Comment on above: Performed By: #### H EMDF, PT, BMP3M, PHOS3, MG3, CK3 #### [facility] [address] [place] #### VD25H #### [facility] [address] [facility] [place] [address] Abs Neutrophile Cnt 9.8 10*3/uL High 1.8-7.0 [facility] Comment on above: Performed By: #### H EMDF, PT, BMP3M, PHOS3, MG3, CK3 #### [facility] [address] [place], [place] #### VD25H #### [facility] [address] [facility] [place] [address] Basophils/100 WBC (Bld) 0.5 % Normal 0.0-2.0 [facility] Comment on above: Performed By: #### H EMDF, PT, BMP3M, PHOS3, MG3, CK3 #### [facility] [address] [place], [place] #### VD25H #### [facility] [address] [place] [address] Eosinophils #/vol (Bld) 0.3 10*3/uL Normal 0.0-0.5 [facility] Comment on above: Performed By: #### H EMDF, PT, BMP3M, PHOS3, MG3, CK3 #### [address] #### VD25H #### [facility] [address] [place] [address] Eosinophils/100 WBC (Bld) 2.5 % Normal 1.0-6.0 [facility] Comment on above: Performed By: #### H EMDF, PT, BMP3M, PHOS3, MG3, CK3 #### [address] #### VD25H #### [facility] [address] [place] [address] Erythrocyte distribution width Ratio (RBC) 13.3 % Normal 11.5-14.5 [facility] Comment on above: Performed By: #### H EMDF, PT, BMP3M, PHOS3, MG3, CK3 #### [address] #### VD25H #### [facility] [address] [place] [address] Granulocytes/100 WBC (Bld) 80.4 % High 40.0-80.0 [facility] Comment on above: Performed By: #### H EMDF, PT, BMP3M, PHOS3, MG3, CK3 #### [address] #### VD25H #### [facility] [address] [place] [address] Hematocrit Volume Fraction (Bld) 30.6 % Low 40.0-52.0 [facility] Comment on above: Performed By: #### H EMDF, PT, BMP3M, PHOS3, MG3, CK3 #### [address] #### VD25H #### [facility] [address] [place] [address] Hemoglobin mass conc (Bld) 10.5 g/dL Low 13.0-18.0 [facility] Comment on above: Performed By: #### H EMDF, PT, BMP3M, PHOS3, MG3, CK3 #### [address] #### VD25H #### [facility] [address] [place] [address] Lymphocytes #/vol (Bld) 1.1 10*3/uL Normal 1.0-4.3 [facility] Comment on above: Performed By: #### H EMDF, PT, BMP3M, PHOS3, MG3, CK3 #### [address] #### VD25H #### [place] [address] [place] [address] Lymphocytes/100 WBC (Bld) 9.1 % Low 20.0-40.0 [facility] Comment on above: Performed By: #### H EMDF, PT, BMP3M, PHOS3, MG3, CK3 #### [address] #### VD25H #### [place] [address] [place] [address] MCH Entitic mass (RBC) 29.7 pg Normal 26.0-34.0 [facility] Comment on above: Performed By: #### H EMDF, PT, BMP3M, PHOS3, MG3, CK3 #### [address] #### VD25H #### [place] [address] [place] [address] MCHC mass conc (RBC) 34.3 % Normal 32.0-36.0 [facility] Comment on above: Performed By: #### H EMDF, PT, BMP3M, PHOS3, MG3, CK3 #### [address] #### VD25H #### [facility] [address] [place] [address] MCV Entitic volume (RBC) 86.7 fL Normal 80.0-98.0 [facility] Comment on above: Performed By: #### H EMDF, PT, BMP3M, PHOS3, MG3, CK3 #### [place] [address] [address] [place], [place] #### VD25H #### [facility] [address] [place] [address] Monocytes #/vol (Bld) 0.9 10*3/uL High 0.0-0.8 [facility] Comment on above: Performed By: #### H EMDF, PT, BMP3M, PHOS3, MG3, CK3 #### [address] #### VD25H #### [facility] [address] [place] [address] Monocytes/100 WBC (Bld) 7.5 % Normal 2.0-10.0 [facility] Comment on above: Performed By: #### H EMDF, PT, BMP3M, PHOS3, MG3, CK3 #### [place] [address] [address] [place], [place] #### VD25H #### [facility] [address] [place] [address] Platelet mean volume Entitic volume (Bld) 7.3 fL Low 7.4-10.4 [facility] Comment on above: Performed By: #### H EMDF, PT, BMP3M, PHOS3, MG3, CK3 #### [address] [place], [place] #### VD25H #### [facility] [address] [place] [address] Platelets #/vol (Bld) 329 10*3/uL Normal 140-440 [facility] Comment on above: Performed By: #### H EMDF, PT, BMP3M, PHOS3, MG3, CK3 #### [facility] [address] [place], [place] #### VD25H #### [facility] [address] [place] [address] RBC #/vol (Bld) 3.53 10*6/uL Low 4.40-5.90 [facility] Comment on above: Performed By: #### H EMDF, PT, BMP3M, PHOS3, MG3, CK3 #### [address] [place], [place] #### VD25H #### [facility] [address] [place] [address] WBC #/vol (Bld) 12.2 10*3/uL High 3.6-10.7 [facility] Comment on above: Performed By: #### H EMDF, PT, BMP3M, PHOS3, MG3, CK3 #### [address] #### VD25H #### [facility] [address] [place] [address] Magnesiumon 07-19-2018 Magnesium mass conc 2.3 mg/dL Normal 1.6-2.3 [facility] Comment on above: Performed By: #### H EMDF, PT, BMP3M, PHOS3, MG3, CK3 #### [address] #### VD25H #### [facility] [address] [place] [address] Procalcitoninon 07-19-2018 Protein mass conc 0.15 ng/mL Abnormal <0.10 [facility] Comment on above: Performed By: #### H EMDF, PT, BMP3M, PHOS3, MG3, CK3 #### [address] #### VD25H #### [facility] [address] [place] [address] Interpretation See Below Normal [facility] Comment on above: Result Comment: PCT <0.50 = Low risk of severe sepsis and/or septic shock. PCT >2.00 = High risk of severe sepsis and/or septic shock. Performed By: #### H EMDF, PT, BMP3M, PHOS3, MG3, CK3 #### [facility] [address] [place] [address] #### VD25H #### [facility] [address] [place] [place] [address] VL Venous Duplex US Lower Ex t Bilateralon 07-19-2018 VL Venous Duplex US Lower Ext Bilateral Patient Name: KATHYA HOOPER Ultrasound Exam Date/Time 07/19/2018 11:10:14 EDT Exam VL Venous Duplex US Lower Ext Bilateral Ordering Physician ETIENNE MARTÍNEZ JULIE Accession Number [id number] CPT4 Codes 15721 () Reason For Exam edema Report [facility] --- Lower Extremity Venous Duplex Report Patient Name: Kathya Hooper : 1955 Study Date: 07/19/2018 W (63yrs) Age: 63 Account: [id number] Gender: M Loc: T209 BP: Ordering: Yesenia Martínez Technologist: Ordering Physician: Yesenia Martínez Database Analyst: León Chaidez RVT, [facility] Interpreting Physician: Ricardo Hall MD --- Location: [facility] --- INDICATIONS: Edema. bilateral calf edema. [...] performed. The images were obtained using a [employer] E9 vascular ultrasound machine. --- VENOUS FLOW [...] --+ Electronically signed by: Ricardo Hall MD [id number] Final Dictated: 07/20/2018 10:49 am Dictating Physician: RICARDO HALL Signed Date and Time: 07/19/2018 11:03 am Signed by: RICARDO HALL Normal [facility] Basic Metabolic Panelon 06-30 Calcium mass conc 7.9 mg/dL Low 8.4-10.4 [facility] Comment on above: Performed By: #### H EMDF, PT, BMP3M, PHOS3, MG3, CK3 #### [facility] [address] [place], [place] #### VD25H #### [facility] [address] [place] [address] Glucose mass conc 113 mg/dL High 70-100 [facility] Comment on above: Performed By: #### H EMDF, PT, BMP3M, PHOS3, MG3, CK3 #### [place] [address] [address] [place], [place] #### VD25H #### [facility] [address] [place] [address] Anion gap molar conc 7 Normal [facility] Comment on above: Performed By: #### H EMDF, PT, BMP3M, PHOS3, MG3, CK3 #### [facility] [address] [facility], [place] #### VD25H #### [facility] [address] [place] [address] CO2 molar conc 31 mmol/L High 22-30 [facility] Comment on above: Performed By: #### H EMDF, PT, BMP3M, PHOS3, MG3, CK3 #### [place] [address] [address] [facility], [place] #### VD25H #### [facility] [address] [place] [address] Creatinine mass conc 0.59 mg/dL Normal 0.52-1.25 [facility] Comment on above: Performed By: #### H EMDF, PT, BMP3M, PHOS3, MG3, CK3 #### [place] [address] [address] [facility] [place] [address] #### VD25H #### [facility] [address] [place] [address] GFR/1.73 sq M predicted among blacks MDRD vol rate/area (S/P/Bld) mL/min/{1.73_m2} Normal >60 [facility] Comment on above: Performed By: #### H EMDF, PT, BMP3M, PHOS3, MG3, CK3 #### [address] [place] [address] #### VD25H #### [place] [address] [place] [address] GFR/1.73 sq M predicted among non-blacks MDRD vol rate/area (S/P/Bld) mL/min/{1.73_m2} Normal >60 [facility] Comment on above: Result Comment: Sour ce- MDRD equation with creatinine calibration to IDMS(NKDEP) eGFR not recommended for drug dose adjustment Performed By: #### H EMDF, PT, BMP3M, PHOS3, MG3, CK3 #### [address] #### VD25H #### [facility] [address] [place] [address] Urea nitrogen mass conc 19 mg/dL Normal 7-20 [facility] Comment on above: Performed By: #### H EMDF, PT, BMP3M, PHOS3, MG3, CK3 #### [address], [place] #### VD25H #### [facility] [address] [place] [address] Chloride molar conc 104 mmol/L Normal 98-107 [facility] Comment on above: Performed By: #### H EMDF, PT, BMP3M, PHOS3, MG3, CK3 #### [address], [place] #### VD25H #### [place] [address] [place] [address] Potassium molar conc 3.4 mmol/L Low 3.5-5.1 [facility] Comment on above: Performed By: #### H EMDF, PT, BMP3M, PHOS3, MG3, CK3 #### [facility] [address] [place] [address] #### VD25H #### [facility] [address] [place] [address] Sodium molar conc 142 mmol/L Normal 135-145 [facility] Comment on above: Performed By: #### H EMDF, PT, BMP3M, PHOS3, MG3, CK3 #### [facility] [address] [facility] [place] [address] #### VD25H #### [facility] [address] [place] [address] CR Abdomen APon 07-18-2018 CR Abdomen AP Patient Name: KATHYA HOOPER Diagnostic Radiology Exam Date/Time 07/18/2018 06:52:18 EDT Exam CR Abdomen AP Ordering Physician [id number] JOYA PERRY Accession Number [id number] CPT4 Codes 74512 () Reason For Exam ileus Report CLINICAL [...] Transcribed Date and Time: 07/18/2018 2:33 Normal [facility] CR Chest Portableon 07-19-19 CR Chest Portable Patient Name: KATHYA HOOPER Diagnostic Radiology Exam Date/Time 07/18/2018 06:52:50 EDT Exam CR Chest Portable Ordering Physician MARIA EUGENIA PEREZ Accession Number [id number] CPT4 Codes 30427 () Reason For Exam ETT placement Report [...] Transcribed Date and Time: 07/18/2018 2:32 Normal [facility] Hemogram w/ Autodiffon 07-18 Abs Baso Cnt 0.0 10*3/uL Normal 0.0-0.2 [facility] Comment on above: Performed By: #### H EMDF, PT, BMP3M, PHOS3, MG3, CK3 #### [facility] [address] [place] [address] #### VD25H #### [facility] [address] [place] [address] Abs Neutrophile Cnt 8.6 10*3/uL High 1.8-7.0 [facility] Comment on above: Performed By: #### H EMDF, PT, BMP3M, PHOS3, MG3, CK3 #### [facility] [address] [place], [place] #### VD25H #### [facility] [address] [place] [address] Basophils/100 WBC (Bld) 0.4 % Normal 0.0-2.0 [facility] Comment on above: Performed By: #### H EMDF, PT, BMP3M, PHOS3, MG3, CK3 #### [place] [address] [address] [place], [place] #### VD25H #### [facility] [address] [place] [address] Eosinophils #/vol (Bld) 0.2 10*3/uL Normal 0.0-0.5 [facility] Comment on above: Performed By: #### H EMDF, PT, BMP3M, PHOS3, MG3, CK3 #### [address] #### VD25H #### [facility] [address] [place] [address] Eosinophils/100 WBC (Bld) 2.1 % Normal 1.0-6.0 [facility] Comment on above: Performed By: #### H EMDF, PT, BMP3M, PHOS3, MG3, CK3 #### [address] #### VD25H #### [facility] [address] [place] [address] Erythrocyte distribution width Ratio (RBC) 13.4 % Normal 11.5-14.5 [facility] Comment on above: Performed By: #### H EMDF, PT, BMP3M, PHOS3, MG3, CK3 #### [address] #### VD25H #### [facility] [address] [place] [address] Granulocytes/100 WBC (Bld) 80.0 % Normal 40.0-80.0 [facility] Comment on above: Performed By: #### H EMDF, PT, BMP3M, PHOS3, MG3, CK3 #### [place] [address] [address] [place], [place] #### VD25H #### [facility] [address] [place] [address] Hematocrit Volume Fraction (Bld) 37.3 % Low 40.0-52.0 [facility] Comment on above: Performed By: #### H EMDF, PT, BMP3M, PHOS3, MG3, CK3 #### [place] [address] [address] [place], [place] #### VD25H #### [facility] [address] [place] [address] Hemoglobin mass conc (Bld) 12.6 g/dL Low 13.0-18.0 [facility] Comment on above: Performed By: #### H EMDF, PT, BMP3M, PHOS3, MG3, CK3 #### [address] #### VD25H #### [facility] [address] [place] [address] Lymphocytes #/vol (Bld) 1.1 10*3/uL Normal 1.0-4.3 [facility] Comment on above: Performed By: #### H EMDF, PT, BMP3M, PHOS3, MG3, CK3 #### [address] #### VD25H #### [facility] [address] [place] [address] Lymphocytes/100 WBC (Bld) 10.3 % Low 20.0-40.0 [facility] Comment on above: Performed By: #### H EMDF, PT, BMP3M, PHOS3, MG3, CK3 #### [address] #### VD25H #### [facility] [address] [place] [address] MCH Entitic mass (RBC) 29.4 pg Normal 26.0-34.0 [facility] Comment on above: Performed By: #### H EMDF, PT, BMP3M, PHOS3, MG3, CK3 #### [address] #### VD25H #### [facility] [address] [place] [address] MCHC mass conc (RBC) 33.9 % Normal 32.0-36.0 [facility] Comment on above: Performed By: #### H EMDF, PT, BMP3M, PHOS3, MG3, CK3 #### [address] #### VD25H #### [facility] [address] [place] [address] MCV Entitic volume (RBC) 86.8 fL Normal 80.0-98.0 [facility] Comment on above: Performed By: #### H EMDF, PT, BMP3M, PHOS3, MG3, CK3 #### [address] #### VD25H #### [facility] [address] [place] [address] Monocytes #/vol (Bld) 0.8 10*3/uL Normal 0.0-0.8 [facility] Comment on above: Performed By: #### H EMDF, PT, BMP3M, PHOS3, MG3, CK3 #### [address] #### VD25H #### [place] [address] [place] [address] Monocytes/100 WBC (Bld) 7.2 % Normal 2.0-10.0 [facility] Comment on above: Performed By: #### H EMDF, PT, BMP3M, PHOS3, MG3, CK3 #### [address] #### VD25H #### [facility] [address] [place] [address] Platelet mean volume Entitic volume (Bld) 7.8 fL Normal 7.4-10.4 [facility] Comment on above: Performed By: #### H EMDF, PT, BMP3M, PHOS3, MG3, CK3 #### [place] [address] [address] [place], [place] #### VD25H #### [facility] [address] [place] [address] Platelets #/vol (Bld) 301 10*3/uL Normal 140-440 [facility] Comment on above: Performed By: #### H EMDF, PT, BMP3M, PHOS3, MG3, CK3 #### [address] #### VD25H #### [facility] [address] [place] [address] RBC #/vol (Bld) 4.29 10*6/uL Low 4.40-5.90 [facility] Comment on above: Performed By: #### H EMDF, PT, BMP3M, PHOS3, MG3, CK3 #### [address] #### VD25H #### [facility] [address] [place] [address] WBC #/vol (Bld) 10.8 10*3/uL High 3.6-10.7 [facility] Comment on above: Performed By: #### H EMDF, PT, BMP3M, PHOS3, MG3, CK3 #### [address] #### VD25H #### [facility] [address] [place] [address] Arterial Blood Gaseson 07-17 CO2 molar conc 29.7 mmol/L High 23.0-27.[address] [facility] Comment on above: Performed By: #### H EMDF, PT, BMP3M, PHOS3, MG3, CK3 #### [address] #### VD25H #### [facility] [address] [place] [address] HCO3 molar conc (Bld) 28.4 mmol/L High 21.0-25.0 [facility] Comment on above: Performed By: #### H EMDF, PT, BMP3M, PHOS3, MG3, CK3 #### [place] [address] [address] [place], [place] #### VD25H #### [facility] [address] [place] [address] Hemoglobin mass conc (Bld) 11.1 g/dL Normal ScreenOnly [facility] Comment on above: Performed By: #### H EMDF, PT, BMP3M, PHOS3, MG3, CK3 #### [address] #### VD25H #### [place] [address] [place] [address] Oxygen ppres (Bld) 109.2 mm[Hg] High 80.0-100.0 [facility] Comment on above: Performed By: #### H EMDF, PT, BMP3M, PHOS3, MG3, CK3 #### [address] #### VD25H #### [facility] [address] [place] [address] Oxygen saturation in Blood 97.8 % Normal 95.0-100.0 [facility] Comment on above: Performed By: #### H EMDF, PT, BMP3M, PHOS3, MG3, CK3 #### [address] #### VD25H #### [facility] [address] [place] [address] pCO2 39.8 mm[Hg] Normal 35.0-45.0 [facility] Comment on above: Performed By: #### H EMDF, PT, BMP3M, PHOS3, MG3, CK3 #### [address] #### VD25H #### [place] [address] [place] [address] pH (Bld) 7.472 High 7.350-7.450 [facility] Comment on above: Performed By: #### H EMDF, PT, BMP3M, PHOS3, MG3, CK3 #### [place] [address] [address] [place], [place] #### VD25H #### [facility] [address] [place] [address] Std Base Excess 4.5 mmol/L High -3.0-3.0 [facility] Comment on above: Performed By: #### H EMDF, PT, BMP3M, PHOS3, MG3, CK3 #### [place] [address] [address] [facility], [place] #### VD25H #### [facility] [address] [place] [address] FIO2 60% Normal [facility] Comment on above: Performed By: #### H EMDF, PT, BMP3M, PHOS3, MG3, CK3 #### [address] [facility], [place] #### VD25H #### [facility] [address] [place] [address] Basic Metabolic Panelon - Anion gap molar conc 6 Normal [facility] Comment on above: Performed By: #### H EMDF, PT, BMP3M, PHOS3, MG3, CK3 #### [place] [address] [address] [facility], [place] #### VD25H #### [facility] [address] [place] [address] Calcium mass conc 8.0 mg/dL Low 8.4-10.4 [facility] Comment on above: Performed By: #### H EMDF, PT, BMP3M, PHOS3, MG3, CK3 #### [place] [address] [address] [facility], [place] #### VD25H #### [facility] [address] [place] [address] CO2 molar conc 31 mmol/L High 22-30 [facility] Comment on above: Performed By: #### H EMDF, PT, BMP3M, PHOS3, MG3, CK3 #### [facility] [address] [place], [place] #### VD25H #### [facility] [address] [place] [address] Glucose mass conc 107 mg/dL High 70-100 [facility] Comment on above: Performed By: #### H EMDF, PT, BMP3M, PHOS3, MG3, CK3 #### [address] #### VD25H #### [facility] [address] [place] [address] Urea nitrogen mass conc 22 mg/dL High 7-20 [facility] Comment on above: Performed By: #### H EMDF, PT, BMP3M, PHOS3, MG3, CK3 #### [address] #### VD25H #### [facility] [address] [place] [address] Creatinine mass conc 0.66 mg/dL Normal 0.52-1.25 [facility] Comment on above: Performed By: #### H EMDF, PT, BMP3M, PHOS3, MG3, CK3 #### [place] [address] [address] [place], [place] #### VD25H #### [facility] [address] [place] [address] GFR/1.73 sq M predicted among blacks MDRD vol rate/area (S/P/Bld) mL/min/{1.73_m2} Normal >60 [facility] Comment on above: Performed By: #### H EMDF, PT, BMP3M, PHOS3, MG3, CK3 #### [address] #### VD25H #### [facility] [address] [place] [address] GFR/1.73 sq M predicted among non-blacks MDRD vol rate/area (S/P/Bld) mL/min/{1.73_m2} Normal >60 [facility] Comment on above: Result Comment: Sour ce- MDRD equation with creatinine calibration to IDMS(NKDEP) eGFR not recommended for drug dose adjustment Performed By: #### H EMDF, PT, BMP3M, PHOS3, MG3, CK3 #### [facility] [address] [place], [place] #### VD25H #### [facility] [address] [place] [address] Chloride molar conc 105 mmol/L Normal 98-107 [facility] Comment on above: Performed By: #### H EMDF, PT, BMP3M, PHOS3, MG3, CK3 #### [address] #### VD25H #### [facility] [address] [place] [address] Potassium molar conc 3.9 mmol/L Normal 3.5-5.1 [facility] Comment on above: Performed By: #### H EMDF, PT, BMP3M, PHOS3, MG3, CK3 #### [facility] [address] [place], [place] #### VD25H #### [facility] [address] [place] [address] Sodium molar conc 142 mmol/L Normal 135-145 [facility] Comment on above: Performed By: #### H EMDF, PT, BMP3M, PHOS3, MG3, CK3 #### [address] #### VD25H #### [facility] [address] [place] [address] CR Abdomen APon 07-17-2018 CR Abdomen AP Patient Name: KATHYA HOOPER Diagnostic Radiology Exam Date/Time 07/17/2018 12:46:31 EDT Exam CR Abdomen AP Ordering Physician [id number] [place]O JOYA Accession Number [id number] CPT4 Codes 63791 () Reason For Exam ileus Report Abdomen: [...] Dictated: 07/17/2018 12:46 pm Dictating Physician: MD JHONSON RISA Signed Date and Time: 07/17/2018 12:46 pm Signed by: MD JOHNSON RISA Transcribed Date and Time: 07/17/2018 12:46 Normal [facility] CR Abdomen AP Patient Name: KATHYA HOOPER Diagnostic Radiology Exam Date/Time 07/17/2018 06:25:43 EDT Exam CR Abdomen AP Ordering Physician [id number] [place] JOYA Accession Number [id number] CPT4 Codes 83392 () Reason For Exam ileus Report Abdomen: [...] Transcribed Date and Time: 07/17/2018 7:16 Normal [facility] CR Chest Portableon 07-18-19 CR Chest Portable Patient Name: KATHYA HOOPER Diagnostic Radiology Exam Date/Time 07/17/2018 18:08:41 EDT Exam CR Chest Portable Ordering Physician SALO DAVIS Accession Number [id number] CPT4 Codes 18823 () Reason For Exam picc Report CHEST [...] Transcribed Date and Time: 07/17/2018 7:24 Normal [facility] CR Chest Portable Patient Name: KATHYA HOOPER Diagnostic Radiology Exam Date/Time 07/17/2018 18:08:41 EDT Exam CR Chest Portable Ordering Physician SALO DAVIS Accession Number [id number] CPT4 Codes 74435 () Reason For Exam reheck line tip [...] Transcribed Date and Time: 07/17/2018 7:21 [facility] Chest Portable Patient Name: KATHYA HOOPER Diagnostic Radiology Exam Date/Time 07/17/2018 06:26:06 EDT Exam CR Chest Portable Ordering Physician MARIA EUGENIA PEREZ Accession Number [id number] CPT4 Codes 18270 () Reason For Exam ETT placement Report [...] Transcribed Date and Time: 07/17/2018 7:17 Normal [facility] Hemogram w/ Autodiffon 07-17 Abs Baso Cnt 0.0 10*3/uL Normal 0.0-0.2 [facility] Comment on above: Performed By: #### H EMDF, PT, BMP3M, PHOS3, MG3, CK3 #### [facility] [address] [place] [id number] #### VD25H #### [facility] [address] [place] [address] Abs Neutrophile Cnt 8.1 10*3/uL High 1.8-7.0 [facility] Comment on above: Performed By: #### H EMDF, PT, BMP3M, PHOS3, MG3, CK3 #### [address] [address] #### VD25H #### [facility] [address] [place] [address] Basophils/100 WBC (Bld) 0.4 % Normal 0.0-2.0 [facility] Comment on above: Performed By: #### H EMDF, PT, BMP3M, PHOS3, MG3, CK3 #### [address] #### VD25H #### [place] [address] [place] [address] Eosinophils #/vol (Bld) 0.1 10*3/uL Normal 0.0-0.5 [facility] Comment on above: Performed By: #### H EMDF, PT, BMP3M, PHOS3, MG3, CK3 #### [address] #### VD25H #### [place] [address] [place] [address] Eosinophils/100 WBC (Bld) 1.4 % Normal 1.0-6.0 [facility] Comment on above: Performed By: #### H EMDF, PT, BMP3M, PHOS3, MG3, CK3 #### [address] [address] #### VD25H #### [place] [address] [place] [address] Erythrocyte distribution width Ratio (RBC) 13.5 % Normal 11.5-14.5 [facility] Comment on above: Performed By: #### H EMDF, PT, BMP3M, PHOS3, MG3, CK3 #### [address] #### VD25H #### [facility] [address] [place] [address] Granulocytes/100 WBC (Bld) 78.6 % Normal 40.0-80.0 [facility] Comment on above: Performed By: #### H EMDF, PT, BMP3M, PHOS3, MG3, CK3 #### [place] [address] [address] [place], [place] #### VD25H #### [facility] [address] [place] [address] Hematocrit Volume Fraction (Bld) 31.3 % Low 40.0-52.0 [facility] Comment on above: Performed By: #### H EMDF, PT, BMP3M, PHOS3, MG3, CK3 #### [address] #### VD25H #### [facility] [address] [place] [address] Hemoglobin mass conc (Bld) 10.4 g/dL Low 13.0-18.0 [facility] Comment on above: Performed By: #### H EMDF, PT, BMP3M, PHOS3, MG3, CK3 #### [place] [address] [address] [place], [place] #### VD25H #### [facility] [address] [place] [address] Lymphocytes #/vol (Bld) 1.0 10*3/uL Normal 1.0-4.3 [facility] Comment on above: Performed By: #### H EMDF, PT, BMP3M, PHOS3, MG3, CK3 #### [address] #### VD25H #### [facility] [address] [place] [address] Lymphocytes/100 WBC (Bld) 10.0 % Low 20.0-40.0 [facility] Comment on above: Performed By: #### H EMDF, PT, BMP3M, PHOS3, MG3, CK3 #### [place] [address] [address] [place], [place] #### VD25H #### [facility] [address] [place] [address] MCH Entitic mass (RBC) 29.3 pg Normal 26.0-34.0 [facility] Comment on above: Performed By: #### H EMDF, PT, BMP3M, PHOS3, MG3, CK3 #### [place] [address] [address] [place], [place] #### VD25H #### [facility] [address] [place] [address] MCHC mass conc (RBC) 33.3 % Normal 32.0-36.0 [facility] Comment on above: Performed By: #### H EMDF, PT, BMP3M, PHOS3, MG3, CK3 #### [address] #### VD25H #### [facility] [address] [place] [address] MCV Entitic volume (RBC) 87.9 fL Normal 80.0-98.0 [facility] Comment on above: Performed By: #### H EMDF, PT, BMP3M, PHOS3, MG3, CK3 #### [place] [address] [place], [place] #### VD25H #### [facility] [address] [place] [address] Monocytes #/vol (Bld) 1.0 10*3/uL High 0.0-0.8 [facility] Comment on above: Performed By: #### H EMDF, PT, BMP3M, PHOS3, MG3, CK3 #### [address] [place], [place] #### VD25H #### [facility] [address] [place] [address] Monocytes/100 WBC (Bld) 9.6 % Normal 2.0-10.0 [facility] Comment on above: Performed By: #### H EMDF, PT, BMP3M, PHOS3, MG3, CK3 #### [address] [place], [place] #### VD25H #### [facility] [address] [place] [address] Platelet mean volume Entitic volume (Bld) 7.6 fL Normal 7.4-10.4 [facility] Comment on above: Performed By: #### H EMDF, PT, BMP3M, PHOS3, MG3, CK3 #### [place] [address] [address] [place], [place] #### VD25H #### [facility] [address] [place] [address] Platelets #/vol (Bld) 307 10*3/uL Normal 140-440 [facility] Comment on above: Performed By: #### H EMDF, PT, BMP3M, PHOS3, MG3, CK3 #### [address] #### VD25H #### [facility] [address] [place] [address] RBC #/vol (Bld) 3.56 10*6/uL Low 4.40-5.90 [facility] Comment on above: Performed By: #### H EMDF, PT, BMP3M, PHOS3, MG3, CK3 #### [address] #### VD25H #### [facility] [address] [place] [address] WBC #/vol (Bld) 10.2 10*3/uL Normal 3.6-10.7 [facility] Comment on above: Performed By: #### H EMDF, PT, BMP3M, PHOS3, MG3, CK3 #### [address] #### VD25H #### [facility] [address] [place] [address] Basic Metabolic Panelon 06-29 Calcium mass conc 8.1 mg/dL Low 8.4-10.4 [facility] Comment on above: Performed By: #### H EMDF, PT, BMP3M, PHOS3, MG3, CK3 #### [place] [address] [address] [place], [place] #### VD25H #### [facility] [address] [place] [address] Anion gap molar conc 5 Normal [facility] Comment on above: Performed By: #### H EMDF, PT, BMP3M, PHOS3, MG3, CK3 #### [address] #### VD25H #### [facility] [address] [place] [address] CO2 molar conc 32 mmol/L High 22-30 [facility] Comment on above: Performed By: #### H EMDF, PT, BMP3M, PHOS3, MG3, CK3 #### [address] #### VD25H #### [facility] [address] [place] [address] Creatinine mass conc 0.62 mg/dL Normal 0.52-1.25 [facility] Comment on above: Performed By: #### H EMDF, PT, BMP3M, PHOS3, MG3, CK3 #### [address] #### VD25H #### [facility] [address] [place] [address] GFR/1.73 sq M predicted among blacks MDRD vol rate/area (S/P/Bld) mL/min/{1.73_m2} Normal >60 [facility] Comment on above: Performed By: #### H EMDF, PT, BMP3M, PHOS3, MG3, CK3 #### [address] #### VD25H #### [facility] [address] [place] [address] GFR/1.73 sq M predicted among non-blacks MDRD vol rate/area (S/P/Bld) mL/min/{1.73_m2} Normal >60 [facility] Comment on above: Result Comment: Sour ce- MDRD equation with creatinine calibration to IDMS(NKDEP) eGFR not recommended for drug dose adjustment Performed By: #### H EMDF, PT, BMP3M, PHOS3, MG3, CK3 #### [facility] [address] [place], [place] #### VD25H #### [facility] [address] [place] [address] Glucose mass conc 103 mg/dL High 70-100 [facility] Comment on above: Performed By: #### H EMDF, PT, BMP3M, PHOS3, MG3, CK3 #### [address] #### VD25H #### [facility] [address] [place] [address] Urea nitrogen mass conc 20 mg/dL Normal 7-20 [facility] Comment on above: Performed By: #### H EMDF, PT, BMP3M, PHOS3, MG3, CK3 #### [place] [address] [place], [place] #### VD25H #### [facility] [address] [place] [address] Chloride molar conc 107 mmol/L Normal 98-107 [facility] Comment on above: Performed By: #### H EMDF, PT, BMP3M, PHOS3, MG3, CK3 #### [place] [address] [place], [place] #### VD25H #### [facility] [address] [place] [address] Potassium molar conc 3.7 mmol/L Normal 3.5-5.1 [facility] Comment on above: Performed By: #### H EMDF, PT, BMP3M, PHOS3, MG3, CK3 #### [place] [address] [place] [address] #### VD25H #### [facility] [address] [place] [address] Sodium molar conc 145 mmol/L Normal 135-145 [facility] Comment on above: Performed By: #### H EMDF, PT, BMP3M, PHOS3, MG3, CK3 #### [facility] [address] [place] #### VD25H #### [facility] [address] [place] [address] CR Abdomen APon 07-16-2018 CR Abdomen AP Patient Name: KATHYA HOOPER Diagnostic Radiology Exam Date/Time 07/16/2018 08:00:58 EDT Exam CR Abdomen AP Ordering Physician [id number] JOYA PERRY Accession Number [id number] CPT4 Codes 47220 () Reason For Exam ileus Report KUB [...] Transcribed Date and Time: 07/16/2018 10:03 Normal [facility] CR Chest Portableon 07-17-19 19 CR Chest Portable Patient Name: KATHYA HOOPER Diagnostic Radiology Exam Date/Time 07/16/2018 06:19:28 EDT Exam CR Chest Portable Ordering Physician MARIA EUGENIA PEREZ Accession Number [id number] CPT4 Codes 06964 () Reason For Exam ETT placement Report [...] Transcribed Date and Time: 07/16/2018 10:10 Normal [facility] Hemogram w/ Autodiffon 07-16 Abs Baso Cnt 0.0 10*3/uL Normal 0.0-0.2 [facility] Comment on above: Performed By: #### H EMDF, PT, BMP3M, PHOS3, MG3, CK3 #### [facility] [address] [place] [address] #### VD25H #### [facility] [address] [place] [address] Abs Neutrophile Cnt 8.7 10*3/uL High 1.8-7.0 [facility] Comment on above: Performed By: #### H EMDF, PT, BMP3M, PHOS3, MG3, CK3 #### [facility] [address] [place] [address] #### VD25H #### [facility] [address] [place] [address] Basophils/100 WBC (Bld) 0.2 % Normal 0.0-2.0 [facility] Comment on above: Performed By: #### H EMDF, PT, BMP3M, PHOS3, MG3, CK3 #### [place] [address] [address] [place], [place] #### VD25H #### [facility] [address] [place] [address] Eosinophils #/vol (Bld) 0.1 10*3/uL Normal 0.0-0.5 [facility] Comment on above: Performed By: #### H EMDF, PT, BMP3M, PHOS3, MG3, CK3 #### [address] [place], [place] #### VD25H #### [facility] [address] [place] [address] Eosinophils/100 WBC (Bld) 0.7 % Low 1.0-6.0 [facility] Comment on above: Performed By: #### H EMDF, PT, BMP3M, PHOS3, MG3, CK3 #### [address] [place], [place] #### VD25H #### [facility] [address] [place] [address] Erythrocyte distribution width Ratio (RBC) 13.7 % Normal 11.5-14.5 [facility] Comment on above: Performed By: #### H EMDF, PT, BMP3M, PHOS3, MG3, CK3 #### [address] #### VD25H #### [facility] [address] [place] [address] Granulocytes/100 WBC (Bld) 83.0 % High 40.0-80.0 [facility] Comment on above: Performed By: #### H EMDF, PT, BMP3M, PHOS3, MG3, CK3 #### [address] #### VD25H #### [facility] [address] [place] [address] Hematocrit Volume Fraction (Bld) 30.3 % Low 40.0-52.0 [facility] Comment on above: Performed By: #### H EMDF, PT, BMP3M, PHOS3, MG3, CK3 #### [address] [place], [place] #### VD25H #### [facility] [address] [place] [address] Hemoglobin mass conc (Bld) 10.5 g/dL Low 13.0-18.0 [facility] Comment on above: Performed By: #### H EMDF, PT, BMP3M, PHOS3, MG3, CK3 #### [address] #### VD25H #### [facility] [address] [place] [address] Lymphocytes #/vol (Bld) 0.7 10*3/uL Low 1.0-4.3 [facility] Comment on above: Performed By: #### H EMDF, PT, BMP3M, PHOS3, MG3, CK3 #### [address] #### VD25H #### [facility] [address] [place] [address] Lymphocytes/100 WBC (Bld) 6.7 % Low 20.0-40.0 [facility] Comment on above: Performed By: #### H EMDF, PT, BMP3M, PHOS3, MG3, CK3 #### [address] #### VD25H #### [facility] [address] [place] [address] MCH Entitic mass (RBC) 30.2 pg Normal 26.0-34.0 [facility] Comment on above: Performed By: #### H EMDF, PT, BMP3M, PHOS3, MG3, CK3 #### [address] #### VD25H #### [facility] [address] [place] [address] MCHC mass conc (RBC) 34.6 % Normal 32.0-36.0 [facility] Comment on above: Performed By: #### H EMDF, PT, BMP3M, PHOS3, MG3, CK3 #### [place] [address] [address] [place], [place] #### VD25H #### [facility] [address] [place] [address] MCV Entitic volume (RBC) 87.3 fL Normal 80.0-98.0 [facility] Comment on above: Performed By: #### H EMDF, PT, BMP3M, PHOS3, MG3, CK3 #### [address] #### VD25H #### [facility] [address] [place] [address] Monocytes #/vol (Bld) 1.0 10*3/uL High 0.0-0.8 [facility] Comment on above: Performed By: #### H EMDF, PT, BMP3M, PHOS3, MG3, CK3 #### [address] #### VD25H #### [facility] [address] [place] [address] Monocytes/100 WBC (Bld) 9.4 % Normal 2.0-10.0 [facility] Comment on above: Performed By: #### H EMDF, PT, BMP3M, PHOS3, MG3, CK3 #### [address] [place], [place] #### VD25H #### [facility] [address] [place] [address] Platelet mean volume Entitic volume (Bld) 6.9 fL Low 7.4-10.4 [facility] Comment on above: Performed By: #### H EMDF, PT, BMP3M, PHOS3, MG3, CK3 #### [address] #### VD25H #### [facility] [address] [place] [address] Platelets #/vol (Bld) 254 10*3/uL Normal 140-440 [facility] Comment on above: Performed By: #### H EMDF, PT, BMP3M, PHOS3, MG3, CK3 #### [facility] [address] [place], [place] #### VD25H #### [facility] [address] [place] [address] RBC #/vol (Bld) 3.47 10*6/uL Low 4.40-5.90 [facility] Comment on above: Performed By: #### H EMDF, PT, BMP3M, PHOS3, MG3, CK3 #### [address] #### VD25H #### [place] [address] [place] [address] WBC #/vol (Bld) 10.5 10*3/uL Normal 3.6-10.7 [facility] Comment on above: Performed By: #### H EMDF, PT, BMP3M, PHOS3, MG3, CK3 #### [address] #### VD25H #### [place] [address] [place] [address] Arterial Blood Gaseson 07-15 CO2 molar conc 26.7 mmol/L Normal 23.0-27.0 [facility] Comment on above: Performed By: #### H EMDF, PT, BMP3M, PHOS3, MG3, CK3 #### [address] #### VD25H #### [facility] [address] [place] [address] FIO2 50% Normal [facility] Comment on above: Performed By: #### H EMDF, PT, BMP3M, PHOS3, MG3, CK3 #### [address] #### VD25H #### [facility] [address] [place] [address] HCO3 molar conc (Bld) 25.7 mmol/L High 21.0-25.0 [facility] Comment on above: Performed By: #### H EMDF, PT, BMP3M, PHOS3, MG3, CK3 #### [address] #### VD25H #### [facility] [address] [place] [address] Hemoglobin mass conc (Bld) 12.5 g/dL Normal ScreenOnly [facility] Comment on above: Performed By: #### H EMDF, PT, BMP3M, PHOS3, MG3, CK3 #### [address] #### VD25H #### [place] [address] [place] [address] Oxygen ppres (Bld) 90.4 mm[Hg] Normal 80.0-100.0 [facility] Comment on above: Performed By: #### H EMDF, PT, BMP3M, PHOS3, MG3, CK3 #### [address] #### VD25H #### [place] [address] [place] [address] Oxygen saturation in Blood 96.8 % Normal 95.0-100.0 [facility] Comment on above: Performed By: #### H EMDF, PT, BMP3M, PHOS3, MG3, CK3 #### [address] #### VD25H #### [facility] [address] [place] [address] pCO2 33.4 mm[Hg] Low 35.0-45.0 [facility] Comment on above: Performed By: #### H EMDF, PT, BMP3M, PHOS3, MG3, CK3 #### [address] #### VD25H #### [place] [address] [place] [address] pH (Bld) 7.504 High 7.350-7.450 [facility] Comment on above: Performed By: #### H EMDF, PT, BMP3M, PHOS3, MG3, CK3 #### [address] [place], [place] #### VD25H #### [facility] [address] [place] [address] Std Base Excess 2.9 mmol/L Normal -3.0-3.0 [facility] Comment on above: Performed By: #### H EMDF, PT, BMP3M, PHOS3, MG3, CK3 #### [address] #### VD25H #### [place] [address] [place] [address] Basic Metabolic Panelon 06-29 Anion gap molar conc 8 Normal [facility] Comment on above: Performed By: #### H EMDF, PT, BMP3M, PHOS3, MG3, CK3 #### [address] #### VD25H #### [place] [address] [place] [address] Calcium mass conc 8.6 mg/dL Normal 8.4-10.4 [facility] Comment on above: Performed By: #### H EMDF, PT, BMP3M, PHOS3, MG3, CK3 #### [address] #### VD25H #### [place] [address] [place] [address] CO2 molar conc 29 mmol/L Normal 22-30 [facility] Comment on above: Performed By: #### H EMDF, PT, BMP3M, PHOS3, MG3, CK3 #### [address] #### VD25H #### [facility] [address] [place] [address] Glucose mass conc 119 mg/dL High 70-100 [facility] Comment on above: Performed By: #### H EMDF, PT, BMP3M, PHOS3, MG3, CK3 #### [place] [address] [place] [address] #### VD25H #### [facility] [address] [place] [address] Urea nitrogen mass conc 23 mg/dL High 7-20 [facility] Comment on above: Performed By: #### H EMDF, PT, BMP3M, PHOS3, MG3, CK3 #### [place] [address] [place] [address] #### VD25H #### [place] [address] [place] [address] Creatinine mass conc 0.73 mg/dL Normal 0.52-1.25 [facility] Comment on above: Performed By: #### H EMDF, PT, BMP3M, PHOS3, MG3, CK3 #### [address] [address] [place] [address] #### VD25H #### [facility] [address] [place] [address] GFR/1.73 sq M predicted among blacks MDRD vol rate/area (S/P/Bld) mL/min/{1.73_m2} Normal >60 [facility] Comment on above: Performed By: #### H EMDF, PT, BMP3M, PHOS3, MG3, CK3 #### [address] [address] #### VD25H #### [place] [address] [place] [address] GFR/1.73 sq M predicted among non-blacks MDRD vol rate/area (S/P/Bld) mL/min/{1.73_m2} Normal >60 [facility] Comment on above: Result Comment: Sour ce- MDRD equation with creatinine calibration to IDMS(NKDEP) eGFR not recommended for drug dose adjustment Performed By: #### H EMDF, PT, BMP3M, PHOS3, MG3, CK3 #### [facility] [address] [place] [address] #### VD25H #### [facility] [address] [place] [address] Potassium molar conc 4.1 mmol/L Normal 3.5-5.1 [facility] Comment on above: Performed By: #### H EMDF, PT, BMP3M, PHOS3, MG3, CK3 #### [facility] [address] [place], [place] #### VD25H #### [facility] [address] [place] [address] Sodium molar conc 144 mmol/L Normal 135-145 [facility] Comment on above: Performed By: #### H EMDF, PT, BMP3M, PHOS3, MG3, CK3 #### [facility] [address] [place] [address] #### VD25H #### [facility] [address] [place] [address] Chloride molar conc 107 mmol/L Normal 98-107 [facility] Comment on above: Performed By: #### H EMDF, PT, BMP3M, PHOS3, MG3, CK3 #### [facility] [address] [place] [address] #### VD25H #### [facility] [address] [place] [address] CR Abdomen APon 07-15-2018 CR Abdomen AP Patient Name: KATHYA HOOPER Diagnostic Radiology Exam Date/Time 07/15/2018 09:25:44 EDT Exam CR Abdomen AP Ordering Physician JOYA ROJAS Accession Number [id number] CPT4 Codes 47255 () Reason For Exam ileus Report EXAMINATION: [...] Transcribed Date and Time: 07/15/2018 10:07 Normal [facility] CR Chest Portableon 07-16-19 19 CR Chest Portable Patient Name: KATHYA HOOPER Diagnostic Radiology Exam Date/Time 07/15/2018 06:00:00 EDT Exam CR Chest Portable Ordering Physician MARIA EUGENIA PEREZ Accession Number [id number] CPT4 Codes 55777 () Reason For Exam ETT placement Report [...] Transcribed Date and Time: 07/15/2018 9:14 Normal [facility] CULT./ST. RESPIRATORYon 06-29 CULT./ST. RESPIRATORY CULT./ST. RESPIRAT [...] in clusters. Rare gram negative bacilli. Normal [facility] Comment on above: Order Comment: Speci men Source Comment:Sputum, Suctioned Performed By: #### H EMDF, PT, BMP3M, PHOS3, MG3, CK3 #### [facility] [address] [place], [place] #### VD25H #### [facility] [address] [place] [address] Hemogram w/ Autodiffon 07-15 Abs Baso Cnt 0.0 10*3/uL Normal 0.0-0.2 [facility] Comment on above: Performed By: #### H EMDF, PT, BMP3M, PHOS3, MG3, CK3 #### [facility] [address] [place], [place] #### VD25H #### [facility] [address] [place] [address] Abs Neutrophile Cnt 13.2 10*3/uL High 1.8-7.0 [facility] Comment on above: Performed By: #### H EMDF, PT, BMP3M, PHOS3, MG3, CK3 #### [address] #### VD25H #### [facility] [address] [place] [address] Basophils/100 WBC (Bld) 0.2 % Normal 0.0-2.0 [facility] Comment on above: Performed By: #### H EMDF, PT, BMP3M, PHOS3, MG3, CK3 #### [address] #### VD25H #### [facility] [address] [place] [address] Eosinophils #/vol (Bld) 0.0 10*3/uL Normal 0.0-0.5 [facility] Comment on above: Performed By: #### H EMDF, PT, BMP3M, PHOS3, MG3, CK3 #### [facility] [address] [place], [place] #### VD25H #### [facility] [address] [place] [address] Eosinophils/100 WBC (Bld) 0.1 % Low 1.0-6.0 [facility] Comment on above: Performed By: #### H EMDF, PT, BMP3M, PHOS3, MG3, CK3 #### [address] #### VD25H #### [facility] [address] [place] [address] Erythrocyte distribution width Ratio (RBC) 13.9 % Normal 11.5-14.5 [facility] Comment on above: Performed By: #### H EMDF, PT, BMP3M, PHOS3, MG3, CK3 #### [address] #### VD25H #### [facility] [address] [place] [address] Granulocytes/100 WBC (Bld) 88.1 % High 40.0-80.0 [facility] Comment on above: Performed By: #### H EMDF, PT, BMP3M, PHOS3, MG3, CK3 #### [address] #### VD25H #### [facility] [address] [place] [address] Hematocrit Volume Fraction (Bld) 35.3 % Low 40.0-52.0 [facility] Comment on above: Performed By: #### H EMDF, PT, BMP3M, PHOS3, MG3, CK3 #### [address] #### VD25H #### [facility] [address] [place] [address] Hemoglobin mass conc (Bld) 11.9 g/dL Low 13.0-18.0 [facility] Comment on above: Performed By: #### H EMDF, PT, BMP3M, PHOS3, MG3, CK3 #### [address] #### VD25H #### [facility] [address] [place] [address] Lymphocytes #/vol (Bld) 0.8 10*3/uL Low 1.0-4.3 [facility] Comment on above: Performed By: #### H EMDF, PT, BMP3M, PHOS3, MG3, CK3 #### [address] #### VD25H #### [place] [address] [place] [address] Lymphocytes/100 WBC (Bld) 5.0 % Low 20.0-40.0 [facility] Comment on above: Performed By: #### H EMDF, PT, BMP3M, PHOS3, MG3, CK3 #### [address] #### VD25H #### [facility] [address] [place] [address] MCH Entitic mass (RBC) 29.5 pg Normal 26.0-34.0 [facility] Comment on above: Performed By: #### H EMDF, PT, BMP3M, PHOS3, MG3, CK3 #### [address] #### VD25H #### [facility] [address] [place] [address] MCHC mass conc (RBC) 33.8 % Normal 32.0-36.0 [facility] Comment on above: Performed By: #### H EMDF, PT, BMP3M, PHOS3, MG3, CK3 #### [address] #### VD25H #### [facility] [address] [place] [address] MCV Entitic volume (RBC) 87.2 fL Normal 80.0-98.0 [facility] Comment on above: Performed By: #### H EMDF, PT, BMP3M, PHOS3, MG3, CK3 #### [address] #### VD25H #### [facility] [address] [place] [address] Monocytes #/vol (Bld) 1.0 10*3/uL High 0.0-0.8 [facility] Comment on above: Performed By: #### H EMDF, PT, BMP3M, PHOS3, MG3, CK3 #### [address] #### VD25H #### [place] [address] [place] [address] Monocytes/100 WBC (Bld) 6.6 % Normal 2.0-10.0 [facility] Comment on above: Performed By: #### H EMDF, PT, BMP3M, PHOS3, MG3, CK3 #### [address] #### VD25H #### [facility] [address] [place] [address] Platelet mean volume Entitic volume (Bld) 7.9 fL Normal 7.4-10.4 [facility] Comment on above: Performed By: #### H EMDF, PT, BMP3M, PHOS3, MG3, CK3 #### [address] #### VD25H #### [facility] [address] [place] [address] Platelets #/vol (Bld) 319 10*3/uL Normal 140-440 [facility] Comment on above: Performed By: #### H EMDF, PT, BMP3M, PHOS3, MG3, CK3 #### [address] #### VD25H #### [place] [address] [place] [address] RBC #/vol (Bld) 4.05 10*6/uL Low 4.40-5.90 [facility] Comment on above: Performed By: #### H EMDF, PT, BMP3M, PHOS3, MG3, CK3 #### [address] #### VD25H #### [place] [address] [place] [address] WBC #/vol (Bld) 15.0 10*3/uL High 3.6-10.7 [facility] Comment on above: Performed By: #### H EMDF, PT, BMP3M, PHOS3, MG3, CK3 #### [address] #### VD25H #### [place] [address] [place] [address] Basic Metabolic Panelon 06-29 Anion gap molar conc 9 Normal [facility] Comment on above: Performed By: #### H EMDF, PT, BMP3M, PHOS3, MG3, CK3 #### [address] #### VD25H #### [place] [address] [place] [address] Calcium mass conc 7.6 mg/dL Low 8.4-10.4 [facility] Comment on above: Performed By: #### H EMDF, PT, BMP3M, PHOS3, MG3, CK3 #### [address] #### VD25H #### [place] [address] [place] [address] CO2 molar conc 26 mmol/L Normal 22-30 [facility] Comment on above: Performed By: #### H EMDF, PT, BMP3M, PHOS3, MG3, CK3 #### [address] [place] #### VD25H #### [facility] [address] [place] [address] Glucose mass conc 148 mg/dL High 70-100 [facility] Comment on above: Performed By: #### H EMDF, PT, BMP3M, PHOS3, MG3, CK3 #### [place] [address] [address] [place], [place] #### VD25H #### [facility] [address] [place] [address] Urea nitrogen mass conc 16 mg/dL Normal 7-20 [facility] Comment on above: Performed By: #### H EMDF, PT, BMP3M, PHOS3, MG3, CK3 #### [address] #### VD25H #### [facility] [address] [place] [address] Creatinine mass conc 0.62 mg/dL Normal 0.52-1.25 [facility] Comment on above: Performed By: #### H EMDF, PT, BMP3M, PHOS3, MG3, CK3 #### [address] #### VD25H #### [facility] [address] [place] [address] GFR/1.73 sq M predicted among blacks MDRD vol rate/area (S/P/Bld) mL/min/{1.73_m2} Normal >60 [facility] Comment on above: Performed By: #### H EMDF, PT, BMP3M, PHOS3, MG3, CK3 #### [address] #### VD25H #### [facility] [address] [place] [address] GFR/1.73 sq M predicted among non-blacks MDRD vol rate/area (S/P/Bld) mL/min/{1.73_m2} Normal >60 [facility] Comment on above: Result Comment: Sour ce- MDRD equation with creatinine calibration to IDMS(NKDEP) eGFR not recommended for drug dose adjustment Performed By: #### H EMDF, PT, BMP3M, PHOS3, MG3, CK3 #### [facility] [address] [place] [address] #### VD25H #### [facility] [address] [place] [address] Potassium molar conc 4.5 mmol/L Normal 3.5-5.1 [facility] Comment on above: Performed By: #### H EMDF, PT, BMP3M, PHOS3, MG3, CK3 #### [facility] [address] [place] [address] #### VD25H #### [facility] [address] [place] [address] Sodium molar conc 137 mmol/L Normal 135-145 [facility] Comment on above: Performed By: #### H EMDF, PT, BMP3M, PHOS3, MG3, CK3 #### [facility] [address] [facility] [place] [address] #### VD25H #### [facility] [address] [place] [address] Chloride molar conc 103 mmol/L Normal 98-107 [facility] Comment on above: Performed By: #### H EMDF, PT, BMP3M, PHOS3, MG3, CK3 #### [facility] [address] [place] [address] #### VD25H #### [facility] [address] [place] [address] CR Abdomen APon 07-14-2018 CR Abdomen AP Patient Name: KATHYA HOOPER Diagnostic Radiology Exam Date/Time 07/14/2018 19:15:43 EDT Exam CR Abdomen AP Ordering Physician JOYA ROJAS Accession Number [id number] CPT4 Codes 70717 () Reason For Exam Distended with emesis [...] Transcribed Date and Time: 07/14/2018 7:28 Normal [facility] CR Chest Portableon 07-15-19 19 CR Chest Portable Patient Name: KATHYA HOOPER Diagnostic Radiology Exam Date/Time 07/14/2018 06:53:29 EDT Exam CR Chest Portable Ordering Physician MARIA EUGENIA PEREZ Accession Number [id number] CPT4 Codes 69765 () Reason For Exam ETT placement Report [...] Transcribed Date and Time: 07/14/2018 11:51 Normal [facility] Hemogram w/ Autodiffon 07-14 Abs Baso Cnt 0.0 10*3/uL Normal 0.0-0.2 [facility] Comment on above: Performed By: #### H EMDF, PT, BMP3M, PHOS3, MG3, CK3 #### [facility] [address] [place] #### VD25H #### [facility] [address] [place] [address] Abs Neutrophile Cnt 11.7 10*3/uL High 1.8-7.0 [facility] Comment on above: Performed By: #### H EMDF, PT, BMP3M, PHOS3, MG3, CK3 #### [address] #### VD25H #### [facility] [address] [place] [address] Basophils/100 WBC (Bld) 0.3 % Normal 0.0-2.0 [facility] Comment on above: Performed By: #### H EMDF, PT, BMP3M, PHOS3, MG3, CK3 #### [address] #### VD25H #### [facility] [address] [place] [address] Eosinophils #/vol (Bld) 0.0 10*3/uL Normal 0.0-0.5 [facility] Comment on above: Performed By: #### H EMDF, PT, BMP3M, PHOS3, MG3, CK3 #### [address] [place], [place] #### VD25H #### [facility] [address] [place] [address] Eosinophils/100 WBC (Bld) 0.1 % Low 1.0-6.0 [facility] Comment on above: Performed By: #### H EMDF, PT, BMP3M, PHOS3, MG3, CK3 #### [address] #### VD25H #### [facility] [address] [place] [address] Erythrocyte distribution width Ratio (RBC) 13.8 % Normal 11.5-14.5 [facility] Comment on above: Performed By: #### H EMDF, PT, BMP3M, PHOS3, MG3, CK3 #### [address] #### VD25H #### [facility] [address] [place] [address] Granulocytes/100 WBC (Bld) 89.1 % High 40.0-80.0 [facility] Comment on above: Performed By: #### H EMDF, PT, BMP3M, PHOS3, MG3, CK3 #### [address] #### VD25H #### [facility] [address] [place] [address] Hematocrit Volume Fraction (Bld) 33.8 % Low 40.0-52.0 [facility] Comment on above: Performed By: #### H EMDF, PT, BMP3M, PHOS3, MG3, CK3 #### [address] #### VD25H #### [facility] [address] [place] [address] Hemoglobin mass conc (Bld) 11.5 g/dL Low 13.0-18.0 [facility] Comment on above: Performed By: #### H EMDF, PT, BMP3M, PHOS3, MG3, CK3 #### [address] #### VD25H #### [facility] [address] [place] [address] Lymphocytes #/vol (Bld) 0.6 10*3/uL Low 1.0-4.3 [facility] Comment on above: Performed By: #### H EMDF, PT, BMP3M, PHOS3, MG3, CK3 #### [address] #### VD25H #### [facility] [address] [place] [address] Lymphocytes/100 WBC (Bld) 4.5 % Low 20.0-40.0 [facility] Comment on above: Performed By: #### H EMDF, PT, BMP3M, PHOS3, MG3, CK3 #### [address] #### VD25H #### [facility] [address] [place] [address] MCH Entitic mass (RBC) 29.6 pg Normal 26.0-34.0 [facility] Comment on above: Performed By: #### H EMDF, PT, BMP3M, PHOS3, MG3, CK3 #### [address] #### VD25H #### [place] [address] [place] [address] MCHC mass conc (RBC) 33.9 % Normal 32.0-36.0 [facility] Comment on above: Performed By: #### H EMDF, PT, BMP3M, PHOS3, MG3, CK3 #### [address] #### VD25H #### [place] [address] [place] [address] MCV Entitic volume (RBC) 87.3 fL Normal 80.0-98.0 [facility] Comment on above: Performed By: #### H EMDF, PT, BMP3M, PHOS3, MG3, CK3 #### [address] #### VD25H #### [facility] [address] [place] [address] Monocytes #/vol (Bld) 0.8 10*3/uL Normal 0.0-0.8 [facility] Comment on above: Performed By: #### H EMDF, PT, BMP3M, PHOS3, MG3, CK3 #### [address] #### VD25H #### [facility] [address] [place] [address] Monocytes/100 WBC (Bld) 6.0 % Normal 2.0-10.0 [facility] Comment on above: Performed By: #### H EMDF, PT, BMP3M, PHOS3, MG3, CK3 #### [address] #### VD25H #### [facility] [address] [place] [address] Platelet mean volume Entitic volume (Bld) 8.1 fL Normal 7.4-10.4 [facility] Comment on above: Performed By: #### H EMDF, PT, BMP3M, PHOS3, MG3, CK3 #### [address] #### VD25H #### [facility] [address] [place] [address] Platelets #/vol (Bld) 196 10*3/uL Normal 140-440 [facility] Comment on above: Performed By: #### H EMDF, PT, BMP3M, PHOS3, MG3, CK3 #### [address] #### VD25H #### [facility] [address] [place] [address] RBC #/vol (Bld) 3.87 10*6/uL Low 4.40-5.90 [facility] Comment on above: Performed By: #### H EMDF, PT, BMP3M, PHOS3, MG3, CK3 #### [address] #### VD25H #### [facility] [address] [place] [address] WBC #/vol (Bld) 13.2 10*3/uL High 3.6-10.7 [facility] Comment on above: Performed By: #### H EMDF, PT, BMP3M, PHOS3, MG3, CK3 #### [place] [address] [address] [place], [place] #### VD25H #### [facility] [address] [place] [address] Add on test from HISon 07-13 Add on test from HIS Rejected Normal [facility] Comment on above: Result Comment: No s pecimen available for addon. Performed By: #### H EMDF, PT, BMP3M, PHOS3, MG3, CK3 #### [place] [address] [address] [place], [place] #### VD25H #### [place] [address] [place] [address] Arterial Blood Gaseson 07-13 CO2 molar conc 25.6 mmol/L Normal 23.0-27.0 [facility] Comment on above: Performed By: #### H EMDF, PT, BMP3M, PHOS3, MG3, CK3 #### [address] [place], [place] #### VD25H #### [facility] [address] [place] [address] HCO3 molar conc (Bld) 24.5 mmol/L Normal 21.0-25.0 [facility] Comment on above: Performed By: #### H EMDF, PT, BMP3M, PHOS3, MG3, CK3 #### [place] [address] [address] [place] #### VD25H #### [facility] [address] [place] [address] Hemoglobin mass conc (Bld) 9.7 g/dL Normal ScreenOnly [facility] Comment on above: Performed By: #### H EMDF, PT, BMP3M, PHOS3, MG3, CK3 #### [address] #### VD25H #### [place] [address] [place] [address] Oxygen ppres (Bld) 99.9 mm[Hg] Normal 80.0-100.0 [facility] Comment on above: Performed By: #### H EMDF, PT, BMP3M, PHOS3, MG3, CK3 #### [address] [place], [place] #### VD25H #### [facility] [address] [place] [address] Oxygen saturation in Blood 97.5 % Normal 95.0-100.0 [facility] Comment on above: Performed By: #### H EMDF, PT, BMP3M, PHOS3, MG3, CK3 #### [address] #### VD25H #### [facility] [address] [place] [address] pCO2 36.0 mm[Hg] Normal 35.0-45.0 [facility] Comment on above: Performed By: #### H EMDF, PT, BMP3M, PHOS3, MG3, CK3 #### [address] #### VD25H #### [facility] [address] [place] [address] pH (Bld) 7.450 Normal 7.350-7.450 [facility] Comment on above: Performed By: #### H EMDF, PT, BMP3M, PHOS3, MG3, CK3 #### [address] #### VD25H #### [facility] [address] [place] [address] Std Base Excess 0.6 mmol/L Normal -3.0-3.0 [facility] Comment on above: Performed By: #### H EMDF, PT, BMP3M, PHOS3, MG3, CK3 #### [address] #### VD25H #### [facility] [address] [place] [address] FIO2 .50 Normal [facility] Comment on above: Performed By: #### H EMDF, PT, BMP3M, PHOS3, MG3, CK3 #### [place] [address] [address] [place] #### VD25H #### [facility] [address] [place] [address] Basic Metabolic Panelon 06-29 Calcium mass conc 7.6 mg/dL Low 8.4-10.4 [facility] Comment on above: Performed By: #### H EMDF, PT, BMP3M, PHOS3, MG3, CK3 #### [place] [address] [address] [place] #### VD25H #### [facility] [address] [place] [address] Glucose mass conc 120 mg/dL High 70-100 [facility] Comment on above: Performed By: #### H EMDF, PT, BMP3M, PHOS3, MG3, CK3 #### [place] [address] [address] [place] #### VD25H #### [facility] [address] [place] [address] Anion gap molar conc 7 Normal [facility] Comment on above: Performed By: #### H EMDF, PT, BMP3M, PHOS3, MG3, CK3 #### [address] #### VD25H #### [facility] [address] [place] [address] CO2 molar conc 27 mmol/L Normal 22-30 [facility] Comment on above: Performed By: #### H EMDF, PT, BMP3M, PHOS3, MG3, CK3 #### [place] [address] [address] [facility] [place] #### VD25H #### [facility] [address] [place] [address] Creatinine mass conc 0.62 mg/dL Normal 0.52-1.25 [facility] Comment on above: Performed By: #### H EMDF, PT, BMP3M, PHOS3, MG3, CK3 #### [address] #### VD25H #### [facility] [address] [place] [address] GFR/1.73 sq M predicted among blacks MDRD vol rate/area (S/P/Bld) mL/min/{1.73_m2} Normal >60 [facility] Comment on above: Performed By: #### H EMDF, PT, BMP3M, PHOS3, MG3, CK3 #### [address] #### VD25H #### [facility] [address] [place] [address] GFR/1.73 sq M predicted among non-blacks MDRD vol rate/area (S/P/Bld) mL/min/{1.73_m2} Normal >60 [facility] Comment on above: Result Comment: Sour ce- MDRD equation with creatinine calibration to IDMS(NKDEP) eGFR not recommended for drug dose adjustment Performed By: #### H EMDF, PT, BMP3M, PHOS3, MG3, CK3 #### [address] #### VD25H #### [facility] [address] [place] [address] Urea nitrogen mass conc 17 mg/dL Normal 7-20 [facility] Comment on above: Performed By: #### H EMDF, PT, BMP3M, PHOS3, MG3, CK3 #### [address] #### VD25H #### [facility] [address] [place] [address] Chloride molar conc 105 mmol/L Normal 98-107 [facility] Comment on above: Performed By: #### H EMDF, PT, BMP3M, PHOS3, MG3, CK3 #### [address] #### VD25H #### [facility] [address] [place] [address] Potassium molar conc 3.8 mmol/L Normal 3.5-5.1 [facility] Comment on above: Performed By: #### H EMDF, PT, BMP3M, PHOS3, MG3, CK3 #### [facility] [address] [place] [address] #### VD25H #### [facility] [address] [place] [address] Sodium molar conc 139 mmol/L Normal 135-145 [facility] Comment on above: Performed By: #### H EMDF, PT, BMP3M, PHOS3, MG3, CK3 #### [facility] [address] [place] [address] #### VD25H #### [facility] [address] [place] [address] CR Chest Portableon 07-14-19 CR Chest Portable Patient Name: KATHYA HOOPER Diagnostic Radiology Exam Date/Time 07/13/2018 06:05:45 EDT Exam CR Chest Portable Ordering Physician MARIA EUGENIA PEREZ Accession Number [id number] CPT4 Codes 33491 () Reason For Exam ETT placement Report [...] Transcribed Date and Time: 07/13/2018 6:33 Normal [facility] Calcium,Ionizedon 07-13-2018 Ionized Ca,Measured 4.10 mg/dL Low 4.30-5.20 [facility] Comment on above: Performed By: #### H EMDF, PT, BMP3M, PHOS3, MG3, CK3 #### [address] #### VD25H #### [facility] [address] [place] [address] pH, Ionized Calcium 7.40 Normal 7.31-7.46 [facility] Comment on above: Performed By: #### H EMDF, PT, BMP3M, PHOS3, MG3, CK3 #### [address] #### VD25H #### [facility] [address] [place] [address] Hemogram w/ Autodiffon 07-13 Abs Baso Cnt 0.0 10*3/uL Normal 0.0-0.2 [facility] Comment on above: Performed By: #### H EMDF, PT, BMP3M, PHOS3, MG3, CK3 #### [address] #### VD25H #### [facility] [address] [facility] [place] [address] Abs Neutrophile Cnt 11.2 10*3/uL High 1.8-7.0 [facility] Comment on above: Performed By: #### H EMDF, PT, BMP3M, PHOS3, MG3, CK3 #### [address] #### VD25H #### [facility] [address] [place] [address] Basophils/100 WBC (Bld) 0.3 % Normal 0.0-2.0 [facility] Comment on above: Performed By: #### H EMDF, PT, BMP3M, PHOS3, MG3, CK3 #### [place] [address] [address] [place], [place] #### VD25H #### [facility] [address] [place] [address] Eosinophils #/vol (Bld) 0.2 10*3/uL Normal 0.0-0.5 [facility] Comment on above: Performed By: #### H EMDF, PT, BMP3M, PHOS3, MG3, CK3 #### [address] #### VD25H #### [facility] [address] [place] [address] Eosinophils/100 WBC (Bld) 1.1 % Normal 1.0-6.0 [facility] Comment on above: Performed By: #### H EMDF, PT, BMP3M, PHOS3, MG3, CK3 #### [address] #### VD25H #### [facility] [address] [place] [address] Erythrocyte distribution width Ratio (RBC) 13.9 % Normal 11.5-14.5 [facility] Comment on above: Performed By: #### H EMDF, PT, BMP3M, PHOS3, MG3, CK3 #### [address] #### VD25H #### [facility] [address] [place] [address] Granulocytes/100 WBC (Bld) 82.2 % High 40.0-80.0 [facility] Comment on above: Performed By: #### H EMDF, PT, BMP3M, PHOS3, MG3, CK3 #### [address] #### VD25H #### [facility] [address] [place] [address] Hematocrit Volume Fraction (Bld) 36.7 % Low 40.0-52.0 [facility] Comment on above: Performed By: #### H EMDF, PT, BMP3M, PHOS3, MG3, CK3 #### [facility] [address] [place] #### VD25H #### [facility] [address] [place] [address] Hemoglobin mass conc (Bld) 12.6 g/dL Low 13.0-18.0 [facility] Comment on above: Performed By: #### H EMDF, PT, BMP3M, PHOS3, MG3, CK3 #### [address] #### VD25H #### [facility] [address] [place] [address] Lymphocytes #/vol (Bld) 1.1 10*3/uL Normal 1.0-4.3 [facility] Comment on above: Performed By: #### H EMDF, PT, BMP3M, PHOS3, MG3, CK3 #### [address] #### VD25H #### [facility] [address] [place] [address] Lymphocytes/100 WBC (Bld) 8.2 % Low 20.0-40.0 [facility] Comment on above: Performed By: #### H EMDF, PT, BMP3M, PHOS3, MG3, CK3 #### [facility] [address] [place], [place] #### VD25H #### [facility] [address] [place] [address] MCH Entitic mass (RBC) 29.6 pg Normal 26.0-34.0 [facility] Comment on above: Performed By: #### H EMDF, PT, BMP3M, PHOS3, MG3, CK3 #### [address] #### VD25H #### [facility] Surgery [address] [place] [address] MCHC mass conc (RBC) 34.4 % Normal 32.0-36.0 [facility] Comment on above: Performed By: #### H EMDF, PT, BMP3M, PHOS3, MG3, CK3 #### [address] #### VD25H #### [facility] [address] [place] [address] MCV Entitic volume (RBC) 86.2 fL Normal 80.0-98.0 [facility] Comment on above: Performed By: #### H EMDF, PT, BMP3M, PHOS3, MG3, CK3 #### [address] #### VD25H #### [place] [address] [place] [address] Monocytes #/vol (Bld) 1.1 10*3/uL High 0.0-0.8 [facility] Comment on above: Performed By: #### H EMDF, PT, BMP3M, PHOS3, MG3, CK3 #### [address] #### VD25H #### [facility] [address] [place] [address] Monocytes/100 WBC (Bld) 8.2 % Normal 2.0-10.0 [facility] Comment on above: Performed By: #### H EMDF, PT, BMP3M, PHOS3, MG3, CK3 #### [address] #### VD25H #### [facility] [address] [place] [address] Platelet mean volume Entitic volume (Bld) 8.1 fL Normal 7.4-10.4 [facility] Comment on above: Performed By: #### H EMDF, PT, BMP3M, PHOS3, MG3, CK3 #### [address] #### VD25H #### [facility] [address] [place] [address] Platelets #/vol (Bld) 194 10*3/uL Normal 140-440 [facility] Comment on above: Performed By: #### H EMDF, PT, BMP3M, PHOS3, MG3, CK3 #### [facility] [address], [place] #### VD25H #### [facility] [address] [place] [address] RBC #/vol (Bld) 4.26 10*6/uL Low 4.40-5.90 [facility] Comment on above: Performed By: #### H EMDF, PT, BMP3M, PHOS3, MG3, CK3 #### [address] #### VD25H #### [facility] [address] [place] [address] WBC #/vol (Bld) 13.7 10*3/uL High 3.6-10.7 [facility] Comment on above: Performed By: #### H EMDF, PT, BMP3M, PHOS3, MG3, CK3 #### [address] #### VD25H #### [facility] [address] [place] [address] Arterial Blood Gaseson 07-12 CO2 molar conc 26.4 mmol/L Normal 23.0-27.0 [facility] Comment on above: Performed By: #### H EMDF, PT, BMP3M, PHOS3, MG3, CK3 #### [address] #### VD25H #### [facility] [address] [place] [address] HCO3 molar conc (Bld) 25.2 mmol/L High 21.0-25.0 [facility] Comment on above: Performed By: #### H EMDF, PT, BMP3M, PHOS3, MG3, CK3 #### [facility] [address] [place], [place] #### VD25H #### [facility] [address] [place] [address] Hemoglobin mass conc (Bld) 13.9 g/dL Normal ScreenOnly [facility] Comment on above: Performed By: #### H EMDF, PT, BMP3M, PHOS3, MG3, CK3 #### [facility] [address] [place], [place] #### VD25H #### [facility] [address] [place] [address] Oxygen ppres (Bld) 83.9 mm[Hg] Normal 80.0-100.0 [facility] Comment on above: Performed By: #### H EMDF, PT, BMP3M, PHOS3, MG3, CK3 #### [address] #### VD25H #### [facility] [address] [place] [address] Oxygen saturation in Blood 96.3 % Normal 95.0-100.0 [facility] Comment on above: Performed By: #### H EMDF, PT, BMP3M, PHOS3, MG3, CK3 #### [address] #### VD25H #### [facility] [address] [place] [address] pCO2 38.2 mm[Hg] Normal 35.0-45.0 [facility] Comment on above: Performed By: #### H EMDF, PT, BMP3M, PHOS3, MG3, CK3 #### [facility] [address] [place], [place] #### VD25H #### [facility] [address] [place] [address] pH (Bld) 7.437 Normal 7.350-7.450 [facility] Comment on above: Performed By: #### H EMDF, PT, BMP3M, PHOS3, MG3, CK3 #### [address] [place], [place] #### VD25H #### [facility] [address] [place] [address] Std Base Excess 1.1 mmol/L Normal -3.0-3.0 [facility] Comment on above: Performed By: #### H EMDF, PT, BMP3M, PHOS3, MG3, CK3 #### [address] [place], [place] #### VD25H #### [facility] [address] [place] [address] FIO2 50% Normal [facility] Comment on above: Performed By: #### H EMDF, PT, BMP3M, PHOS3, MG3, CK3 #### [address] #### VD25H #### [place] [address] [place] [address] CO2 molar conc 27.2 mmol/L High 23.0-27.0 [facility] Comment on above: Performed By: #### H EMDF, PT, BMP3M, PHOS3, MG3, CK3 #### [address] #### VD25H #### [place] [address] [place] [address] HCO3 molar conc (Bld) 26.1 mmol/L High 21.0-25.0 [facility] Comment on above: Performed By: #### H EMDF, PT, BMP3M, PHOS3, MG3, CK3 #### [address] #### VD25H #### [place] [address] [place] [address] Hemoglobin mass conc (Bld) 14.7 g/dL Normal ScreenOnly [facility] Comment on above: Performed By: #### H EMDF, PT, BMP3M, PHOS3, MG3, CK3 #### [address] [place], [place] #### VD25H #### [facility] [address] [place] [address] Oxygen ppres (Bld) 125.7 mm[Hg] High 80.0-100.0 [facility] Comment on above: Performed By: #### H EMDF, PT, BMP3M, PHOS3, MG3, CK3 #### [place] [address] [address] [place], [place] #### VD25H #### [facility] [address] [place] [address] Oxygen saturation in Blood 98.6 % Normal 95.0-100.0 [facility] Comment on above: Performed By: #### H EMDF, PT, BMP3M, PHOS3, MG3, CK3 #### [address] #### VD25H #### [facility] [address] [place] [address] pCO2 37.5 mm[Hg] Normal 35.0-45.0 [facility] Comment on above: Performed By: #### H EMDF, PT, BMP3M, PHOS3, MG3, CK3 #### [address] #### VD25H #### [facility] [address] [place] [address] pH (Bld) 7.460 High 7.350-7.450 [facility] Comment on above: Performed By: #### H EMDF, PT, BMP3M, PHOS3, MG3, CK3 #### [address] #### VD25H #### [facility] [address] [place] [address] Std Base Excess 2.4 mmol/L Normal -3.0-3.0 [facility] Comment on above: Performed By: #### H EMDF, PT, BMP3M, PHOS3, MG3, CK3 #### [facility] [address] [place], [place] #### VD25H #### [facility] [address] [place] [address] FIO2 62.5 Normal [facility] Comment on above: Performed By: #### H EMDF, PT, BMP3M, PHOS3, MG3, CK3 #### [place] [address] [address] [facility], [place] #### VD25H #### [facility] [address] [place] [address] Basic Metabolic Panelon 06-29 Anion gap molar conc 6 Normal [facility] Comment on above: Performed By: #### H EMDF, PT, BMP3M, PHOS3, MG3, CK3 #### [address] #### VD25H #### [facility] [address] [place] [address] Calcium mass conc 8.0 mg/dL Low 8.4-10.4 [facility] Comment on above: Performed By: #### H EMDF, PT, BMP3M, PHOS3, MG3, CK3 #### [place] [address] [address] [facility], [place] #### VD25H #### [facility] [address] [place] [address] CO2 molar conc 28 mmol/L Normal 22-30 [facility] Comment on above: Performed By: #### H EMDF, PT, BMP3M, PHOS3, MG3, CK3 #### [address], [place] #### VD25H #### [facility] [address] [place] [address] Creatinine mass conc 0.62 mg/dL Normal 0.52-1.25 [facility] Comment on above: Performed By: #### H EMDF, PT, BMP3M, PHOS3, MG3, CK3 #### [place] [address] [address] [place], [place] #### VD25H #### [facility] [address] [place] [address] GFR/1.73 sq M predicted among blacks MDRD vol rate/area (S/P/Bld) mL/min/{1.73_m2} Normal >60 [facility] Comment on above: Performed By: #### H EMDF, PT, BMP3M, PHOS3, MG3, CK3 #### [place] [address] [address] [place], [place] #### VD25H #### [place] [address] [place] [address] GFR/1.73 sq M predicted among non-blacks MDRD vol rate/area (S/P/Bld) mL/min/{1.73_m2} Normal >60 [facility] Comment on above: Result Comment: Sour ce- MDRD equation with creatinine calibration to IDMS(NKDEP) eGFR not recommended for drug dose adjustment Performed By: #### H EMDF, PT, BMP3M, PHOS3, MG3, CK3 #### [place] [address] [address] [place], [place] #### VD25H #### [place] [address] [place] [address] Glucose mass conc 125 mg/dL High 70-100 [facility] Comment on above: Performed By: #### H EMDF, PT, BMP3M, PHOS3, MG3, CK3 #### [place] [address] [address] [place], [place] #### VD25H #### [facility] [address] [place] [address] Urea nitrogen mass conc 12 mg/dL Normal 7-20 [facility] Comment on above: Performed By: #### H EMDF, PT, BMP3M, PHOS3, MG3, CK3 #### [place] [address] [address] [place], [place] #### VD25H #### [facility] [address] [place] [address] Chloride molar conc 104 mmol/L Normal 98-107 [facility] Comment on above: Performed By: #### H EMDF, PT, BMP3M, PHOS3, MG3, CK3 #### [facility] [address] [place] [address] #### VD25H #### [facility] [address] [place] [address] Potassium molar conc 3.6 mmol/L Normal 3.5-5.1 [facility] Comment on above: Performed By: #### H EMDF, PT, BMP3M, PHOS3, MG3, CK3 #### [facility] [address] [place] [address] #### VD25H #### [facility] [address] [place] [address] Sodium molar conc 138 mmol/L Normal 135-145 [facility] Comment on above: Performed By: #### H EMDF, PT, BMP3M, PHOS3, MG3, CK3 #### [facility] [address] [place] [address] #### VD25H #### [facility] [address] [place] [address] CR Chest Portableon 07-13-19 CR Chest Portable Patient Name: KATHYA HOOPER Diagnostic Radiology Exam Date/Time 07/12/2018 10:18:11 EDT Exam CR Chest Portable Ordering Physician MARIA EUGENIA PEREZ Accession Number [id number] CPT4 Codes 59702 () Reason For Exam ETT Placement Report [...] Transcribed Date and Time: 07/12/2018 1:21 Normal [facility] CR Chest Portable Patient Name: KATHYA HOOPER Diagnostic Radiology Exam Date/Time 07/12/2018 06:19:03 EDT Exam CR Chest Portable Ordering Physician MD NATE, [facility] Accession Number [id number] CPT4 Codes 52455 () Reason For Exam dyspnea Report PORTABLE [...] Transcribed Date and Time: 07/12/2018 8:01 Normal [facility] Hemogram w/ Autodiffon 07-12 Abs Baso Cnt 0.0 10*3/uL Normal 0.0-0.2 [facility] Comment on above: Performed By: #### H EMDF, PT, BMP3M, PHOS3, MG3, CK3 #### [facility] [address] [place], [place] #### VD25H #### [facility] [address] [place] [address] Abs Neutrophile Cnt 10.2 10*3/uL High 1.8-7.0 [facility] Comment on above: Performed By: #### H EMDF, PT, BMP3M, PHOS3, MG3, CK3 #### [facility] [address], [place] #### VD25H #### [facility] [address] [place] [address] Basophils/100 WBC (Bld) 0.4 % Normal 0.0-2.0 [facility] Comment on above: Performed By: #### H EMDF, PT, BMP3M, PHOS3, MG3, CK3 #### [address] #### VD25H #### [facility] [address] [facility] [place] [address] Eosinophils #/vol (Bld) 0.1 10*3/uL Normal 0.0-0.5 [facility] Comment on above: Performed By: #### H EMDF, PT, BMP3M, PHOS3, MG3, CK3 #### [address] #### VD25H #### [facility] [address] [place] [address] Eosinophils/100 WBC (Bld) 0.6 % Low 1.0-6.0 [facility] Comment on above: Performed By: #### H EMDF, PT, BMP3M, PHOS3, MG3, CK3 #### [address] #### VD25H #### [facility] [address] [place] [address] Erythrocyte distribution width Ratio (RBC) 13.5 % Normal 11.5-14.5 [facility] Comment on above: Performed By: #### H EMDF, PT, BMP3M, PHOS3, MG3, CK3 #### [address] #### VD25H #### [facility] [address] [place] [address] Granulocytes/100 WBC (Bld) 84.7 % High 40.0-80.0 [facility] Comment on above: Performed By: #### H EMDF, PT, BMP3M, PHOS3, MG3, CK3 #### [address] #### VD25H #### [facility] [address] [place] [address] Hematocrit Volume Fraction (Bld) 39.7 % Low 40.0-52.0 [facility] Comment on above: Performed By: #### H EMDF, PT, BMP3M, PHOS3, MG3, CK3 #### [address] #### VD25H #### [facility] [address] [place] [address] Hemoglobin mass conc (Bld) 13.5 g/dL Normal 13.0-18.0 [facility] Comment on above: Performed By: #### H EMDF, PT, BMP3M, PHOS3, MG3, CK3 #### [address] #### VD25H #### [facility] [address] [place] [address] Lymphocytes #/vol (Bld) 0.9 10*3/uL Low 1.0-4.3 [facility] Comment on above: Performed By: #### H EMDF, PT, BMP3M, PHOS3, MG3, CK3 #### [place] [address] [address] [place], [place] #### VD25H #### [facility] [address] [place] [address] Lymphocytes/100 WBC (Bld) 7.6 % Low 20.0-40.0 [facility] Comment on above: Performed By: #### H EMDF, PT, BMP3M, PHOS3, MG3, CK3 #### [address] #### VD25H #### [facility] [address] [place] [address] MCH Entitic mass (RBC) 29.6 pg Normal 26.0-34.0 [facility] Comment on above: Performed By: #### H EMDF, PT, BMP3M, PHOS3, MG3, CK3 #### [address] #### VD25H #### [facility] [address] [place] [address] MCHC mass conc (RBC) 34.1 % Normal 32.0-36.0 [facility] Comment on above: Performed By: #### H EMDF, PT, BMP3M, PHOS3, MG3, CK3 #### [address] #### VD25H #### [facility] [address] [facility] [place] [address] MCV Entitic volume (RBC) 87.0 fL Normal 80.0-98.0 [facility] Comment on above: Performed By: #### H EMDF, PT, BMP3M, PHOS3, MG3, CK3 #### [address] #### VD25H #### [facility] [address] [place] [address] Monocytes #/vol (Bld) 0.8 10*3/uL Normal 0.0-0.8 [facility] Comment on above: Performed By: #### H EMDF, PT, BMP3M, PHOS3, MG3, CK3 #### [facility] [address] [place], [place] #### VD25H #### [facility] [address] [place] [address] Monocytes/100 WBC (Bld) 6.7 % Normal 2.0-10.0 [facility] Comment on above: Performed By: #### H EMDF, PT, BMP3M, PHOS3, MG3, CK3 #### [address] #### VD25H #### [facility] [address] [place] [address] Platelet mean volume Entitic volume (Bld) 8.4 fL Normal 7.4-10.4 [facility] Comment on above: Performed By: #### H EMDF, PT, BMP3M, PHOS3, MG3, CK3 #### [address] #### VD25H #### [facility] [address] [place] [address] Platelets #/vol (Bld) 185 10*3/uL Normal 140-440 [facility] Comment on above: Performed By: #### H EMDF, PT, BMP3M, PHOS3, MG3, CK3 #### [address] #### VD25H #### [facility] [address] [place] [address] RBC #/vol (Bld) 4.57 10*6/uL Normal 4.40-5.90 [facility] Comment on above: Performed By: #### H EMDF, PT, BMP3M, PHOS3, MG3, CK3 #### [address] #### VD25H #### [employer] [address] [place] [address] WBC #/vol (Bld) 12.1 10*3/uL High 3.6-10.7 [facility] Comment on above: Performed By: #### H EMDF, PT, BMP3M, PHOS3, MG3, CK3 #### [employer] [address] [place] [address] #### VD25H #### [employer] [address] [place] [address] VL Venous Duplex US Lower Ex t Bilateralon 07-12-2018 VL Venous Duplex US Lower Ext Bilateral Patient Name: KATHYA HOOPER Ultrasound Exam Date/Time 07/12/2018 17:20:46 EDT Exam VL Venous Duplex US Lower Ext Bilateral Ordering Physician MD AVELAR ADAM Accession Number [id number] CPT4 Codes 67593 () Reason For Exam leg swelling Report [facility] --- Lower Extremity Venous Duplex Report Patient Name: Kathya Hooper : 1955 Study Date: 07/12/2018 W (63yrs) Age: 63 Account: [id number] Gender: M Loc: [id number] BP: Ordering: Joshua Avelar Technologist: Ordering Physician: Joshua Avelar Database Analyst: Elizabeth Sanford RVT Interpreting Physician: Krysta Arora --- Location: [facility] --- INDICATIONS: Edema. bilateral calves. --- [...] performed. The images were obtained using a [employer] E9 vascular ultrasound machine. --- VENOUS FLOW [...] ---------+-------+--- --+ Electronically signed by: Krysta Arora [id number] Final Dictated: 07/13/2018 8:45 am Dictating Physician: KRYSTA ARORA Signed Date and Time: 07/13/2018 8:45 am Signed by: KRYSTA ARORA [facility] Basic Metabolic Panelon 06-29 Calcium mass conc 7.8 mg/dL Low 8.4-10.4 [facility] Comment on above: Performed By: #### H EMDF, PT, BMP3M, PHOS3, MG3, CK3 #### [facility] [address] [facility], [place] #### VD25H #### [facility] [address] [place] [address] Anion gap molar conc 4 Normal [facility] Comment on above: Performed By: #### H EMDF, PT, BMP3M, PHOS3, MG3, CK3 #### [place] [address] [address] [facility], [place] #### VD25H #### [facility] [address] [place] [address] CO2 molar conc 26 mmol/L Normal 22-30 [facility] Comment on above: Performed By: #### H EMDF, PT, BMP3M, PHOS3, MG3, CK3 #### [place] [address] [address] [facility], [place] #### VD25H #### [facility] [address] [place] [address] Glucose mass conc 118 mg/dL High 70-100 [facility] Comment on above: Performed By: #### H EMDF, PT, BMP3M, PHOS3, MG3, CK3 #### [place] [address] [address] [facility], [place] #### VD25H #### [facility] [address] [place] [address] Urea nitrogen mass conc 19 mg/dL Normal 7-20 [facility] Comment on above: Performed By: #### H EMDF, PT, BMP3M, PHOS3, MG3, CK3 #### [place] [address] [address] [facility], [place] #### VD25H #### [facility] [address] [place] [address] Creatinine mass conc 0.74 mg/dL Normal 0.52-1.25 [facility] Comment on above: Performed By: #### H EMDF, PT, BMP3M, PHOS3, MG3, CK3 #### [address] [address] #### VD25H #### [facility] [address] [place] [address] GFR/1.73 sq M predicted among blacks MDRD vol rate/area (S/P/Bld) mL/min/{1.73_m2} Normal >60 [facility] Comment on above: Performed By: #### H EMDF, PT, BMP3M, PHOS3, MG3, CK3 #### [address] #### VD25H #### [facility] [address] [place] [address] GFR/1.73 sq M predicted among non-blacks MDRD vol rate/area (S/P/Bld) mL/min/{1.73_m2} Normal >60 [facility] Comment on above: Result Comment: Sour ce- MDRD equation with creatinine calibration to IDMS(NKDEP) eGFR not recommended for drug dose adjustment Performed By: #### H EMDF, PT, BMP3M, PHOS3, MG3, CK3 #### [address] #### VD25H #### [facility] [address] [place] [address] Chloride molar conc 112 mmol/L High 98-107 [facility] Comment on above: Performed By: #### H EMDF, PT, BMP3M, PHOS3, MG3, CK3 #### [address] #### VD25H #### [facility] [address] [facility] [place] [address] Potassium molar conc 3.8 mmol/L Normal 3.5-5.1 [facility] Comment on above: Performed By: #### H EMDF, PT, BMP3M, PHOS3, MG3, CK3 #### [address] [place] [address] #### VD25H #### [facility] [address] [place] [address] Sodium molar conc 141 mmol/L Normal 135-145 [facility] Comment on above: Performed By: #### H EMDF, PT, BMP3M, PHOS3, MG3, CK3 #### [facility] [address] [place] [address] #### VD25H #### [facility] [address] [place] [address] CR Chest 1 View Frontalon CR Chest 1 View Frontal Patient Name: KATHYA FELDER Diagnostic Radiology Exam Date/Time 07/11/2018 06:36:48 EDT Exam CR Chest 1 View Frontal Ordering Physician MD AVELAR ADAM Accession Number [id number] CPT4 Codes 77176 () Reason For Exam dyspnea Report EXAM [...] Transcribed Date and Time: 07/11/2018 7:05 Normal [facility] Hemogram w/ Autodiffon 07-11 Abs Baso Cnt 0.0 10*3/uL Normal 0.0-0.2 [facility] Comment on above: Performed By: #### H EMDF, PT, BMP3M, PHOS3, MG3, CK3 #### [facility] [address] [place], [place] #### VD25H #### [facility] [address] [place] [address] Abs Neutrophile Cnt 8.8 10*3/uL High 1.8-7.0 [facility] Comment on above: Performed By: #### H EMDF, PT, BMP3M, PHOS3, MG3, CK3 #### [address] #### VD25H #### [facility] [address] [place] [address] Basophils/100 WBC (Bld) 0.4 % Normal 0.0-2.0 [facility] Comment on above: Performed By: #### H EMDF, PT, BMP3M, PHOS3, MG3, CK3 #### [address] #### VD25H #### [facility] [address] [place] [address] Eosinophils #/vol (Bld) 0.0 10*3/uL Normal 0.0-0.5 [facility] Comment on above: Performed By: #### H EMDF, PT, BMP3M, PHOS3, MG3, CK3 #### [address] #### VD25H #### [facility] [address] [place] [address] Eosinophils/100 WBC (Bld) 0.4 % Low 1.0-6.0 [facility] Comment on above: Performed By: #### H EMDF, PT, BMP3M, PHOS3, MG3, CK3 #### [address] #### VD25H #### [facility] [address] [place] [address] Erythrocyte distribution width Ratio (RBC) 13.7 % Normal 11.5-14.5 [facility] Comment on above: Performed By: #### H EMDF, PT, BMP3M, PHOS3, MG3, CK3 #### [place] [address] [address] [place], [place] #### VD25H #### [facility] [address] [place] [address] Granulocytes/100 WBC (Bld) 80.6 % High 40.0-80.0 [facility] Comment on above: Performed By: #### H EMDF, PT, BMP3M, PHOS3, MG3, CK3 #### [address] [place], [place] #### VD25H #### [facility] [address] [place] [address] Hematocrit Volume Fraction (Bld) 32.8 % Low 40.0-52.0 [facility] Comment on above: Performed By: #### H EMDF, PT, BMP3M, PHOS3, MG3, CK3 #### [address] [place], [place] #### VD25H #### [facility] [address] [place] [address] Hemoglobin mass conc (Bld) 11.4 g/dL Low 13.0-18.0 [facility] Comment on above: Performed By: #### H EMDF, PT, BMP3M, PHOS3, MG3, CK3 #### [address] #### VD25H #### [facility] [address] [place] [address] Lymphocytes #/vol (Bld) 1.3 10*3/uL Normal 1.0-4.3 [facility] Comment on above: Performed By: #### H EMDF, PT, BMP3M, PHOS3, MG3, CK3 #### [address] [place], [place] #### VD25H #### [facility] [address] [place] [address] Lymphocytes/100 WBC (Bld) 11.5 % Low 20.0-40.0 [facility] Comment on above: Performed By: #### H EMDF, PT, BMP3M, PHOS3, MG3, CK3 #### [place] [address] [address] [place], [place] #### VD25H #### [facility] [address] [place] [address] MCH Entitic mass (RBC) 30.2 pg Normal 26.0-34.0 [facility] Comment on above: Performed By: #### H EMDF, PT, BMP3M, PHOS3, MG3, CK3 #### [address] #### VD25H #### [place] [address] [place] [address] MCHC mass conc (RBC) 34.7 % Normal 32.0-36.0 [facility] Comment on above: Performed By: #### H EMDF, PT, BMP3M, PHOS3, MG3, CK3 #### [address] #### VD25H #### [facility] [address] [place] [address] MCV Entitic volume (RBC) 86.9 fL Normal 80.0-98.0 [facility] Comment on above: Performed By: #### H EMDF, PT, BMP3M, PHOS3, MG3, CK3 #### [address] #### VD25H #### [facility] [address] [place] [address] Monocytes #/vol (Bld) 0.8 10*3/uL Normal 0.0-0.8 [facility] Comment on above: Performed By: #### H EMDF, PT, BMP3M, PHOS3, MG3, CK3 #### [address] [place], [place] #### VD25H #### [facility] [address] [place] [address] Monocytes/100 WBC (Bld) 7.1 % Normal 2.0-10.0 [facility] Comment on above: Performed By: #### H EMDF, PT, BMP3M, PHOS3, MG3, CK3 #### [place] [address] [address] [place], [place] #### VD25H #### [facility] [address] [place] [address] Platelet mean volume Entitic volume (Bld) 8.8 fL Normal 7.4-10.4 [facility] Comment on above: Performed By: #### H EMDF, PT, BMP3M, PHOS3, MG3, CK3 #### [address] #### VD25H #### [facility] [address] [place] [address] Platelets #/vol (Bld) 158 10*3/uL Normal 140-440 [facility] Comment on above: Performed By: #### H EMDF, PT, BMP3M, PHOS3, MG3, CK3 #### [address] #### VD25H #### [facility] [address] [place] [address] RBC #/vol (Bld) 3.78 10*6/uL Low 4.40-5.90 [facility] Comment on above: Performed By: #### H EMDF, PT, BMP3M, PHOS3, MG3, CK3 #### [address] [place], [place] #### VD25H #### [facility] [address] [place] [address] WBC #/vol (Bld) 10.9 10*3/uL High 3.6-10.7 [facility] Comment on above: Performed By: #### H EMDF, PT, BMP3M, PHOS3, MG3, CK3 #### [facility] [address] [place], [place] #### VD25H #### [facility] [address] [place] [address] Magnesiumon 07-11-2018 Magnesium mass conc 2.3 mg/dL Normal 1.6-2.3 [facility] Comment on above: Performed By: #### H EMDF, PT, BMP3M, PHOS3, MG3, CK3 #### [place] [address] [address] [place], [place] #### VD25H #### [facility] [address] [place] [address] Phosphoruson 07-11-2018 Phosphate mass conc 2.8 mg/dL Normal 2.5-4.5 [facility] Comment on above: Performed By: #### H EMDF, PT, BMP3M, PHOS3, MG3, CK3 #### [place] [address] [address] [facility], [place] #### VD25H #### [facility] [address] [place] [address] Basic Metabolic Panelon 06-29 Calcium mass conc 8.9 mg/dL Normal 8.4-10.4 [facility] Comment on above: Performed By: #### H EMDF, PT, BMP3M, PHOS3, MG3, CK3 #### [facility] [address] [facility], [place] #### VD25H #### [facility] [address] [place] [address] Glucose mass conc 133 mg/dL High 70-100 [facility] Comment on above: Performed By: #### H EMDF, PT, BMP3M, PHOS3, MG3, CK3 #### [place] [address] [facility] [place] #### VD25H #### [facility] [address] [place] [address] Anion gap molar conc 4 Normal [facility] Comment on above: Performed By: #### H EMDF, PT, BMP3M, PHOS3, MG3, CK3 #### [address] #### VD25H #### [facility] [address] [place] [address] CO2 molar conc 27 mmol/L Normal 22-30 [facility] Comment on above: Performed By: #### H EMDF, PT, BMP3M, PHOS3, MG3, CK3 #### [address] #### VD25H #### [facility] [address] [facility] [place] [address] Creatinine mass conc 0.69 mg/dL Normal 0.52-1.25 [facility] Comment on above: Performed By: #### H EMDF, PT, BMP3M, PHOS3, MG3, CK3 #### [address] #### VD25H #### [facility] [address] [place] [address] GFR/1.73 sq M predicted among blacks MDRD vol rate/area (S/P/Bld) mL/min/{1.73_m2} Normal >60 [facility] Comment on above: Performed By: #### H EMDF, PT, BMP3M, PHOS3, MG3, CK3 #### [address] #### VD25H #### [facility] [address] [place] [address] GFR/1.73 sq M predicted among non-blacks MDRD vol rate/area (S/P/Bld) mL/min/{1.73_m2} Normal >60 [facility] Comment on above: Result Comment: Sour ce- MDRD equation with creatinine calibration to IDMS(NKDEP) eGFR not recommended for drug dose adjustment Performed By: #### H EMDF, PT, BMP3M, PHOS3, MG3, CK3 #### [facility] [address] [facility], [place] #### VD25H #### [facility] [address] [place] [address] Urea nitrogen mass conc 16 mg/dL Normal 7-20 [facility] Comment on above: Performed By: #### H EMDF, PT, BMP3M, PHOS3, MG3, CK3 #### [place] [address] [address] [facility], [place] #### VD25H #### [facility] [address] [place] [address] Potassium molar conc 4.1 mmol/L Normal 3.5-5.1 [facility] Comment on above: Performed By: #### H EMDF, PT, BMP3M, PHOS3, MG3, CK3 #### [place] [address] [address] [place], [place] #### VD25H #### [facility] [address] [place] [address] Sodium molar conc 142 mmol/L Normal 135-145 [facility] Comment on above: Performed By: #### H EMDF, PT, BMP3M, PHOS3, MG3, CK3 #### [place] [address] [address] [facility], [place] #### VD25H #### [facility] [address] [place] [address] Chloride molar conc 110 mmol/L High 98-107 [facility] Comment on above: Performed By: #### H EMDF, PT, BMP3M, PHOS3, MG3, CK3 #### [place] [address] [address] [facility], [place] #### VD25H #### [facility] [address] [place] [address] [facility] CK enzyme act/vol 1291 U/L High 30-170 [facility] Comment on above: Performed By: #### H EMDF, PT, BMP3M, PHOS3, MG3, CK3 #### [address] [place] [address] [place] [address] #### VD25H #### [facility] [address] [place] [address] CK enzyme act/vol 1382 U/L High 30-170 [facility] Comment on above: Performed By: #### H EMDF, PT, BMP3M, PHOS3, MG3, CK3 #### [facility] [address] [place] [address] #### VD25H #### [facility] [address] [place] [address] CR Chest 1 View Frontalon CR Chest 1 View Frontal Patient Name: KATHYA FELDER Diagnostic Radiology Exam Date/Time 07/10/2018 06:38:06 EDT Exam CR Chest 1 View Frontal Ordering Physician MD NATE, [facility] Accession Number [id number] CPT4 Codes 97851 () Reason For Exam dyspnea Report EXAMINATION: [...] Transcribed Date and Time: 07/10/2018 8:57 Normal [facility] Hemogram w/ Autodiffon 07-10 Abs Baso Cnt 0.0 10*3/uL Normal 0.0-0.2 [facility] Comment on above: Performed By: #### H EMDF, PT, BMP3M, PHOS3, MG3, CK3 #### [address] #### VD25H #### [facility] [address] [place] [address] Abs Neutrophile Cnt 12.2 10*3/uL High 1.8-7.0 [facility] Comment on above: Performed By: #### H EMDF, PT, BMP3M, PHOS3, MG3, CK3 #### [address] #### VD25H #### [facility] [address] [place] [address] Basophils/100 WBC (Bld) 0.3 % Normal 0.0-2.0 [facility] Comment on above: Performed By: #### H EMDF, PT, BMP3M, PHOS3, MG3, CK3 #### [address] #### VD25H #### [facility] [address] [place] [address] Eosinophils #/vol (Bld) 0.0 10*3/uL Normal 0.0-0.5 [facility] Comment on above: Performed By: #### H EMDF, PT, BMP3M, PHOS3, MG3, CK3 #### [address] #### VD25H #### [facility] [address] [place] [address] Eosinophils/100 WBC (Bld) 0.0 % Low 1.0-6.0 [facility] Comment on above: Performed By: #### H EMDF, PT, BMP3M, PHOS3, MG3, CK3 #### [address], [place] #### VD25H #### [facility] [address] [place] [address] Erythrocyte distribution width Ratio (RBC) 13.9 % Normal 11.5-14.5 [facility] Comment on above: Performed By: #### H EMDF, PT, BMP3M, PHOS3, MG3, CK3 #### [place] [address] [address] [place] #### VD25H #### [facility] [address] [place] [address] Granulocytes/100 WBC (Bld) 89.5 % High 40.0-80.0 [facility] Comment on above: Performed By: #### H EMDF, PT, BMP3M, PHOS3, MG3, CK3 #### [address] #### VD25H #### [facility] [address] [place] [address] Hematocrit Volume Fraction (Bld) 36.0 % Low 40.0-52.0 [facility] Comment on above: Performed By: #### H EMDF, PT, BMP3M, PHOS3, MG3, CK3 #### [address] [place], [place] #### VD25H #### [facility] [address] [place] [address] Hemoglobin mass conc (Bld) 12.3 g/dL Low 13.0-18.0 [facility] Comment on above: Performed By: #### H EMDF, PT, BMP3M, PHOS3, MG3, CK3 #### [place] [address] [address] [place] #### VD25H #### [facility] [address] [place] [address] Lymphocytes #/vol (Bld) 0.6 10*3/uL Low 1.0-4.3 [facility] Comment on above: Performed By: #### H EMDF, PT, BMP3M, PHOS3, MG3, CK3 #### [address] #### VD25H #### [facility] [address] [place] [address] Lymphocytes/100 WBC (Bld) 4.3 % Low 20.0-40.0 [facility] Comment on above: Performed By: #### H EMDF, PT, BMP3M, PHOS3, MG3, CK3 #### [address] #### VD25H #### [facility] [address] [place] [address] MCH Entitic mass (RBC) 29.8 pg Normal 26.0-34.0 [facility] Comment on above: Performed By: #### H EMDF, PT, BMP3M, PHOS3, MG3, CK3 #### [address] #### VD25H #### [facility] [address] [place] [address] MCHC mass conc (RBC) 34.2 % Normal 32.0-36.0 [facility] Comment on above: Performed By: #### H EMDF, PT, BMP3M, PHOS3, MG3, CK3 #### [address] #### VD25H #### [facility] [address] [place] [address] MCV Entitic volume (RBC) 87.1 fL Normal 80.0-98.0 [facility] Comment on above: Performed By: #### H EMDF, PT, BMP3M, PHOS3, MG3, CK3 #### [address] #### VD25H #### [facility] [address] [place] [address] Monocytes #/vol (Bld) 0.8 10*3/uL Normal 0.0-0.8 [facility] Comment on above: Performed By: #### H EMDF, PT, BMP3M, PHOS3, MG3, CK3 #### [address] [place], [place] #### VD25H #### [facility] [address] [place] [address] Monocytes/100 WBC (Bld) 5.9 % Normal 2.0-10.0 [facility] Comment on above: Performed By: #### H EMDF, PT, BMP3M, PHOS3, MG3, CK3 #### [address] [place], [place] #### VD25H #### [facility] [address] [place] [address] Platelet mean volume Entitic volume (Bld) 8.4 fL Normal 7.4-10.4 [facility] Comment on above: Performed By: #### H EMDF, PT, BMP3M, PHOS3, MG3, CK3 #### [address] #### VD25H #### [facility] [address] [place] [address] Platelets #/vol (Bld) 155 10*3/uL Normal 140-440 [facility] Comment on above: Performed By: #### H EMDF, PT, BMP3M, PHOS3, MG3, CK3 #### [address] #### VD25H #### [facility] [address] [place] [address] RBC #/vol (Bld) 4.13 10*6/uL Low 4.40-5.90 [facility] Comment on above: Performed By: #### H EMDF, PT, BMP3M, PHOS3, MG3, CK3 #### [address] #### VD25H #### [facility] [address] [place] [address] WBC #/vol (Bld) 13.6 10*3/uL High 3.6-10.7 [facility] Comment on above: Performed By: #### H EMDF, PT, BMP3M, PHOS3, MG3, CK3 #### [place] [address] [address] [place], [place] #### VD25H #### [facility] [address] [place] [address] Magnesiumon 07-10-2018 Magnesium mass conc 2.3 mg/dL Normal 1.6-2.3 [facility] Comment on above: Performed By: #### H EMDF, PT, BMP3M, PHOS3, MG3, CK3 #### [address] #### VD25H #### [facility] [address] [place] [address] Phosphoruson 07-10-2018 Phosphate mass conc 2.7 mg/dL Normal 2.5-4.5 [facility] Comment on above: Performed By: #### H EMDF, PT, BMP3M, PHOS3, MG3, CK3 #### [address] #### VD25H #### [facility] [address] [place] [address] Add on test from HISon 07-09 Add on test from HIS Accepted Normal [facility] Comment on above: Result Comment: Spec imen available & acceptable for analysis. Performed By: #### A DDON #### [address] Arterial Blood Gaseson 07-09 CO2 molar conc 24.5 mmol/L Normal 23.0-27.0 [facility] Comment on above: Performed By: #### H EMDF, PT, BMP3M, PHOS3, MG3, CK3 #### [address] #### VD25H #### [facility] [address] [place] [address] HCO3 molar conc (Bld) 23.2 mmol/L Normal 21.0-25.0 [facility] Comment on above: Performed By: #### H EMDF, PT, BMP3M, PHOS3, MG3, CK3 #### [address] #### VD25H #### [facility] [address] [place] [address] Hemoglobin mass conc (Bld) 15.7 g/dL Normal ScreenOnly [facility] Comment on above: Performed By: #### H EMDF, PT, BMP3M, PHOS3, MG3, CK3 #### [address] #### VD25H #### [facility] [address] [place] [address] Oxygen ppres (Bld) 397.4 mm[Hg] High 80.0-100.0 [facility] Comment on above: Performed By: #### H EMDF, PT, BMP3M, PHOS3, MG3, CK3 #### [address] #### VD25H #### [facility] [address] [place] [address] Oxygen saturation in Blood 99.2 % Normal 95.0-100.0 [facility] Comment on above: Performed By: #### H EMDF, PT, BMP3M, PHOS3, MG3, CK3 #### [address] #### VD25H #### [facility] [address] [place] [address] pCO2 42.3 mm[Hg] Normal 35.0-45.0 [facility] Comment on above: Performed By: #### H EMDF, PT, BMP3M, PHOS3, MG3, CK3 #### [address] #### VD25H #### [facility] [address] [place] [address] pH (Bld) 7.357 Normal 7.350-7.450 [facility] Comment on above: Performed By: #### H EMDF, PT, BMP3M, PHOS3, MG3, CK3 #### [place] [address] [address] [place], [place] #### VD25H #### [facility] [address] [place] [address] Std Base Excess -2.3 mmol/L Normal -3.0-3.0 [facility] Comment on above: Performed By: #### H EMDF, PT, BMP3M, PHOS3, MG3, CK3 #### [address] #### VD25H #### [facility] [address] [place] [address] FIO2 100% Normal [facility] Comment on above: Performed By: #### H EMDF, PT, BMP3M, PHOS3, MG3, CK3 #### [address] #### VD25H #### [facility] [address] [place] [address] Basic Metabolic Panelon - Calcium mass conc 8.6 mg/dL Normal 8.4-10.4 [facility] Comment on above: Performed By: #### H EMDF, PT, BMP3M, PHOS3, MG3, CK3 #### [address] #### VD25H #### [facility] [address] [place] [address] Glucose mass conc 150 mg/dL High 70-100 [facility] Comment on above: Performed By: #### H EMDF, PT, BMP3M, PHOS3, MG3, CK3 #### [address] #### VD25H #### [facility] [address] [place] [address] Anion gap molar conc 7 Normal [facility] Comment on above: Performed By: #### H EMDF, PT, BMP3M, PHOS3, MG3, CK3 #### [address] [address] #### VD25H #### [facility] [address] [place] [address] CO2 molar conc 26 mmol/L Normal 22-30 [facility] Comment on above: Performed By: #### H EMDF, PT, BMP3M, PHOS3, MG3, CK3 #### [address] [address] #### VD25H #### [place] [address] [place] [address] Creatinine mass conc 0.80 mg/dL Normal 0.52-1.25 [facility] Comment on above: Performed By: #### H EMDF, PT, BMP3M, PHOS3, MG3, CK3 #### [address] #### VD25H #### [place] [address] [place] [address] GFR/1.73 sq M predicted among blacks MDRD vol rate/area (S/P/Bld) mL/min/{1.73_m2} Normal >60 [facility] Comment on above: Performed By: #### H EMDF, PT, BMP3M, PHOS3, MG3, CK3 #### [address] #### VD25H #### [address] [place] [address] GFR/1.73 sq M predicted among non-blacks MDRD vol rate/area (S/P/Bld) mL/min/{1.73_m2} Normal >60 [facility] Comment on above: Result Comment: Sour ce- MDRD equation with creatinine calibration to IDMS(NKDEP) eGFR not recommended for drug dose adjustment Performed By: #### H EMDF, PT, BMP3M, PHOS3, MG3, CK3 #### [address] #### VD25H #### [facility] [address] [place] [address] Urea nitrogen mass conc 16 mg/dL Normal 7-20 [facility] Comment on above: Performed By: #### H EMDF, PT, BMP3M, PHOS3, MG3, CK3 #### [facility] [address] [place] #### VD25H #### [facility] [address] [place] [address] Chloride molar conc 110 mmol/L High 98-107 [facility] Comment on above: Performed By: #### H EMDF, PT, BMP3M, PHOS3, MG3, CK3 #### [place] [address] [address] [place] #### VD25H #### [facility] [address] [place] [address] Potassium molar conc 4.7 mmol/L Normal 3.5-5.1 [facility] Comment on above: Performed By: #### H EMDF, PT, BMP3M, PHOS3, MG3, CK3 #### [place] [address] [address] [place] #### VD25H #### [facility] [address] [place] [address] Sodium molar conc 143 mmol/L Normal 135-145 [facility] Comment on above: Performed By: #### H EMDF, PT, BMP3M, PHOS3, MG3, CK3 #### [place] [address] [address] [place] #### VD25H #### [facility] [address] [place] [address] CKon 07-09-2018 CK enzyme act/vol 1451 U/L High 30-170 [facility] Comment on above: Performed By: #### H EMDF, PT, BMP3M, PHOS3, MG3, CK3 #### [address] [place] [address] [address] [place] #### VD25H #### [facility] [address] [place] [address] CK enzyme act/vol 3832 U/L High 30-170 [facility] Comment on above: Performed By: #### H EMDF, PT, BMP3M, PHOS3, MG3, CK3 #### [facility] [address] [facility] [place] [address] #### VD25H #### [facility] [address] [place] [address] CR Chest 1 View Frontalon CR Chest 1 View Frontal Patient Name: KATHYA FELDER Diagnostic Radiology Exam Date/Time 07/09/2018 06:21:56 EDT Exam CR Chest 1 View Frontal Ordering Physician MD NATE, [facility] Accession Number [id number] CPT4 Codes 27274 () Reason For Exam dyspnea Report CHEST [...] Transcribed Date and Time: 07/09/2018 6:39 Normal [facility] CR Chest Portableon 07-10-19 19 CR Chest Portable Patient Name: KATHYA HOOPER Diagnostic Radiology Exam Date/Time 07/09/2018 11:34:09 EDT Exam CR Chest Portable Ordering Physician [id number] INDRA ACUNA Accession Number [id number] CPT4 Codes 65844 () Reason For Exam Central line placement [...] Transcribed Date and Time: 07/09/2018 1:01 Normal [facility] CR Chest Portable Patient Name: KATHYA HOOPER Diagnostic Radiology Exam Date/Time 07/09/2018 03:05:20 EDT Exam CR Chest Portable Ordering Physician MD NATE, [facility] Accession Number [id number] CPT4 Codes 83387 () Reason For Exam intubation Report CHEST PORTABLE: Indication: Inpatient; intubation Views: Portable frontal Comparison: 07/08/2018 at 22:16 Time: 07/09/2018 at 2:46 FINDINGS: Interval intubation with endotracheal tube approximately 4.2 cm above the level of the alma. An enteric tube has been placed with distal tip below the hemidiaphragm but excluded from [id number]. Cardiac monitoring wires and leads are present. [...] Transcribed Date and Time: 07/09/2018 3:10 Normal [facility] CR Chest Portable Patient Name: KATHYA HOOPER Diagnostic Radiology Exam Date/Time 07/08/2018 22:31:57 EDT Exam CR Chest Portable Ordering Physician MD NATE, NICOLE LEYDI Accession Number [id number] CPT4 Codes 26946 () Reason For Exam cough Report CHEST [...] Transcribed Date and Time: 07/08/2018 11:23 Normal [facility] CTA Head/Neck w/ + w/o contr birgit 07-09-2018 CTA Head/Neck w/ + w/o contrast Patient Name: KATHYA HOOPER CT Exam Date/Time 07/09/2018 04:42:10 EDT Exam CTA Head/Neck w/ + w/o contrast Ordering Physician MD RICKI, JORDAN Accession Number [id number] CPT4 Codes Q9967 (CT ISOVUE [id number]), 59784 (), 63489 () Reason For Exam CERVICAL SPINE FRACTURE Report CLINICAL INFORMATION: C-spine fracture after trauma. Vascular injury suspected. CTA HEAD: After 75 ml Isovue IV contrast, 0.3 mm axial cuts were obtained through the brain. Coronal and sagittal reconstructions are reviewed. In addition, 3D images of the [place] were constructed by me and [...] by and reviewed simultaneously on the separate [employer] Workstation. The examination is compared to a [...] at 0735 hrs. Report Dictated on Workstation: [employer] Final Dictated: 07/09/2018 9:50 am Dictating Physician: MD JERNIGAN JEFFREY Signed Date and Time: 07/09/2018 10:26 am Signed by: MD JERNIGAN JEFFREY Transcribed Date and Time: 07/09/2018 9:[address] [facility] Hemogram w/ Autodiffon 07-09 Abs Baso Cnt 0.1 10*3/uL Normal 0.0-0.2 [facility] Comment on above: Performed By: #### H EMDF, PT, BMP3M, PHOS3, MG3, CK3 #### [facility] [address], [place] #### VD25H #### [facility] [address] [place] [address] Abs Neutrophile Cnt 13.3 10*3/uL High 1.8-7.0 [facility] Comment on above: Performed By: #### H EMDF, PT, BMP3M, PHOS3, MG3, CK3 #### [address] #### VD25H #### [facility] [address] [place] [address] Basophils/100 WBC (Bld) 0.3 % Normal 0.0-2.0 [facility] Comment on above: Performed By: #### H EMDF, PT, BMP3M, PHOS3, MG3, CK3 #### [address] #### VD25H #### [facility] [address] [place] [address] Eosinophils #/vol (Bld) 0.0 10*3/uL Normal 0.0-0.5 [facility] Comment on above: Performed By: #### H EMDF, PT, BMP3M, PHOS3, MG3, CK3 #### [address] #### VD25H #### [facility] [address] [place] [address] Eosinophils/100 WBC (Bld) 0.0 % Low 1.0-6.0 [facility] Comment on above: Performed By: #### H EMDF, PT, BMP3M, PHOS3, MG3, CK3 #### [address] #### VD25H #### [facility] [address] [place] [address] Erythrocyte distribution width Ratio (RBC) 13.7 % Normal 11.5-14.5 [facility] Comment on above: Performed By: #### H EMDF, PT, BMP3M, PHOS3, MG3, CK3 #### [address] #### VD25H #### [facility] [address] [place] [address] Granulocytes/100 WBC (Bld) 86.5 % High 40.0-80.0 [facility] Comment on above: Performed By: #### H EMDF, PT, BMP3M, PHOS3, MG3, CK3 #### [address] #### VD25H #### [place] [address] [place] [address] Hematocrit Volume Fraction (Bld) 45.1 % Normal 40.0-52.0 [facility] Comment on above: Performed By: #### H EMDF, PT, BMP3M, PHOS3, MG3, CK3 #### [address] #### VD25H #### [facility] [address] [place] [address] Hemoglobin mass conc (Bld) 15.6 g/dL Normal 13.0-18.0 [facility] Comment on above: Performed By: #### H EMDF, PT, BMP3M, PHOS3, MG3, CK3 #### [address] #### VD25H #### [facility] [address] [place] [address] Lymphocytes #/vol (Bld) 0.8 10*3/uL Low 1.0-4.3 [facility] Comment on above: Performed By: #### H EMDF, PT, BMP3M, PHOS3, MG3, CK3 #### [address] #### VD25H #### [facility] [address] [place] [address] Lymphocytes/100 WBC (Bld) 5.5 % Low 20.0-40.0 [facility] Comment on above: Performed By: #### H EMDF, PT, BMP3M, PHOS3, MG3, CK3 #### [address] #### VD25H #### [facility] [address] [place] [address] MCH Entitic mass (RBC) 29.9 pg Normal 26.0-34.0 [facility] Comment on above: Performed By: #### H EMDF, PT, BMP3M, PHOS3, MG3, CK3 #### [address] #### VD25H #### [place] [address] [place] [address] MCHC mass conc (RBC) 34.5 % Normal 32.0-36.0 [facility] Comment on above: Performed By: #### H EMDF, PT, BMP3M, PHOS3, MG3, CK3 #### [address] #### VD25H #### [place] [address] [place] [address] MCV Entitic volume (RBC) 86.7 fL Normal 80.0-98.0 [facility] Comment on above: Performed By: #### H EMDF, PT, BMP3M, PHOS3, MG3, CK3 #### [address] #### VD25H #### [facility] [address] [place] [address] Monocytes #/vol (Bld) 1.2 10*3/uL High 0.0-0.8 [facility] Comment on above: Performed By: #### H EMDF, PT, BMP3M, PHOS3, MG3, CK3 #### [address] [place], [place] #### VD25H #### [facility] [address] [place] [address] Monocytes/100 WBC (Bld) 7.7 % Normal 2.0-10.0 [facility] Comment on above: Performed By: #### H EMDF, PT, BMP3M, PHOS3, MG3, CK3 #### [place] [address], [place] #### VD25H #### [facility] [address] [place] [address] Platelet mean volume Entitic volume (Bld) 8.1 fL Normal 7.4-10.4 [facility] Comment on above: Performed By: #### H EMDF, PT, BMP3M, PHOS3, MG3, CK3 #### [address] #### VD25H #### [facility] [address] [place] [address] Platelets #/vol (Bld) 197 10*3/uL Normal 140-440 [facility] Comment on above: Performed By: #### H EMDF, PT, BMP3M, PHOS3, MG3, CK3 #### [address] #### VD25H #### [facility] [address] [place] [address] RBC #/vol (Bld) 5.20 10*6/uL Normal 4.40-5.90 [facility] Comment on above: Performed By: #### H EMDF, PT, BMP3M, PHOS3, MG3, CK3 #### [address] #### VD25H #### [facility] [address] [place] [address] WBC #/vol (Bld) 15.4 10*3/uL High 3.6-10.7 [facility] Comment on above: Performed By: #### H EMDF, PT, BMP3M, PHOS3, MG3, CK3 #### [facility] [address] [place] [address] #### VD25H #### [facility] [address] [place] [address] MRI Spine Cervical w/o Contr birgit 07-09-2018 MRI Spine Cervical w/o Contrast Patient Name: KATHYA HOOPER MRI Exam Date/Time 07/09/2018 00:44:49 EDT Exam MRI Spine Cervical w/o Contrast Ordering Physician MD CHEYENNE, BRITTANY BERRY Accession Number [id number] CPT4 Codes 56556 () Reason For Exam CERVICAL SPINE FRACTURE [...] Transcribed Date and Time: 07/09/2018 7:45 Normal [facility] Magnesiumon 07-09-2018 Magnesium mass conc 2.2 mg/dL Normal 1.6-2.3 [facility] Comment on above: Performed By: #### H EMDF, PT, BMP3M, PHOS3, MG3, CK3 #### [address] [address] #### VD25H #### [facility] [address] [place] [address] Phosphoruson 07-09-2018 Phosphate mass conc 4.0 mg/dL Normal 2.5-4.5 [facility] Comment on above: Performed By: #### H EMDF, PT, BMP3M, PHOS3, MG3, CK3 #### [address] [address] #### VD25H #### [facility] [address] [place] [address] Prothrombin Timeon 9 INR Coag RelTime (PPP) 1.0 Normal 0.9-1.1 [facility] Comment on above: Result Comment: Yefri [...] EMDF, PT, BMP3M, PHOS3, MG3, CK3 #### [facility] [address] [place] [address] #### VD25H #### [facility] [address] [place] [address] Prothrombin time (PT) Coag time (PPP) 10.3 s Normal 9.0-12.0 [facility] Comment on above: Result Comment: . Performed By: #### H EMDF, PT, BMP3M, PHOS3, MG3, CK3 #### [facility] [address] [place] [address] #### VD25H #### [facility] [address] [place] [address] TS GELon 07-09-2018 TS GEL ABO Group: O Rh, Gel: POS Antibody Screen Gel: NEG Normal [facility] Comment on above: Performed By: #### T SGL #### [facility] [address] [place] [address] Vit D 25-OH, Totalon 019 Vit D 25-OH, Total 23 ng/mL Low 30-100 [facility] Comment on above: Result Comment: Ther apy is based on measurement of Total 25-OHD with the following classification levels: Less than 20 ng/mL: Indicative of Vit D deficiency 20-30 ng/mL: Suggests Vit D insufficiency Optimal: Greater than or equal to 30 ng/mL Test performed by [employer] Immunoassay, measuring Total Vitamin D, not individual fractions. Performed By: #### H EMDF, PT, BMP3M, PHOS3, MG3, CK3 #### [facility] [address] [place] [address] #### VD25H #### [facility] [address] [place] [address] Hematologyon 01-03-2003 Lymphocytes (Bld) [#/Vol] RECTUM, BIOPSY - BENIGN COLONIC MUCOSA WITH INTRAMUCOSAL LYMPHOID AGGREGATES. [facility] Otheron 01-03-2003 CONVERTED ELECTRONIC SIGNATURE BARBARA CASTILLO M.D., PATHOLOGIST (Electronic signature on file) Final Signed Out: 01/03/2003 15:[address] [facility] CONVERTED ORDERING PROVIDER [facility]ing [facility] Culture, urine Bacteria identified Cx Nom (U) Culture exhibits no growth. [facility] Work Phone: Vital Signs Date Time Vital Sign Value Performing Clinician Facility 10-02-2023 13:56-0400 Diastolic blood pressure 62 mm[Hg] Fei Farooq MD Work Phone: [facility] 10-02-2023 13:56-0400 Heart rate 104 /min Fei Farooq MD Work Phone: [facility] 10-02-2023 13:56-0400 SaO2% (BldA) [Mass fraction] 94 % Fei Farooq MD Work Phone: [facility] 10-02-2023 13:56-0400 Systolic blood pressure 124 mm[Hg] Fei Farooq MD Work Phone: [facility] 10-02-2023 11:13-0400 Respiratory rate 16 /min Fei Farooq MD Work Phone: [facility] 10-02-2023 09:47-0400 Body mass index (BMI) [Ratio] 26.19 kg/m2 Fei Farooq MD Work Phone: [facility] 10-02-2023 09:47-0400 Body temperature 98.01 [degF] Fei Farooq MD Work Phone: [facility] 10-02-2023 09:47-0400 Body weight 92.53 kg Fei Farooq MD Work Phone: [facility] 05-20-2022 18:30-0500 Body mass index (BMI) [Ratio] 26.32 kg/m2 Abelardo Gombash DO Work Phone: [employer] 05-20-2022 18:30-0500 Body temperature 97.3 [degF] Abelardo Gombash DO Work Phone: [employer] [facility] 05-20-2022 18:30-0500 Body weight 92.99 kg Abelardo Gombash DO Work Phone: [employer] [facility] 05-20-2022 18:30-0500 Diastolic blood pressure 108 mm[Hg] Abelardo Gombash DO Work Phone: [facility] 05-20-2022 18:30-0500 Heart rate 100 /min Abelardo Gombash DO Work Phone: [facility] 05-20-2022 18:30-0500 Respiratory rate 14 /min Abelardo Gombash DO Work Phone: [facility] 05-20-2022 18:30-0500 SaO2% (BldA) [Mass fraction] 98 % Abelardo Gombash DO Work Phone: [facility] 05-20-2022 18:30-0500 Systolic blood pressure 125 mm[Hg] Abelardo Gombash DO Work Phone: [facility] 05-15-2021 09:40-0500 Body height 188 cm Timothy Micheal DO Work Phone: [facility] 05-15-2021 09:40-0500 Body mass index (BMI) [Ratio] 23.75 kg/m2 Timothy Micheal DO Work Phone: [employer] 05-15-2021 09:40-0500 Body weight 83.92 kg Timothy Micheal DO Work Phone: [facility] 05-15-2021 09:38-0500 Body temperature 97.59 [degF] Timothy Micheal DO Work Phone: [employer] 05-15-2021 09:38-0500 Diastolic blood pressure 76 mm[Hg] Timothy Micheal DO Work Phone: [employer] 05-15-2021 09:38-0500 Heart rate 102 /min Timothy Micheal DO Work Phone: [employer] 05-15-2021 09:38-0500 Respiratory rate 16 /min Timothy Micheal DO Work Phone: [facility] 05-15-2021 09:38-0500 SaO2% (BldA) [Mass fraction] 99 % Timothy Micheal DO Work Phone: [facility] 05-15-2021 09:38-0500 Systolic blood pressure 115 mm[Hg] Timothy Micheal DO Work Phone: [facility] 03-24-2021 10:20-0500 Respiratory rate 18 /min Brady Nesheim DO Work Phone: [facility] 03-24-2021 10:20-0500 SaO2% (BldA) [Mass fraction] 94 % Brady Nesheim DO Work Phone: [facility] 03-24-2021 08:44-0500 Body temperature 97.7 [degF] Brady Nesheim DO Work Phone: [facility] 03-24-2021 08:44-0500 Diastolic blood pressure 55 mm[Hg] Brady Nesheim DO Work Phone: [facility] 03-24-2021 08:44-0500 Heart rate 85 /min Brady Nesheim DO Work Phone: [facility] 03-24-2021 08:44-0500 Systolic blood pressure 85 mm[Hg] Brady Nesheim DO Work Phone: [facility] 03-20-2021 13:41-0500 Body height 188 cm Brady Nesheim DO Work Phone: [facility] 03-20-2021 11:16-0500 Body mass index (BMI) [Ratio] 23.86 kg/m2 Brady Nesheim DO Work Phone: [facility] 03-20-2021 11:16-0500 Body weight 84.32 kg Brady Nesheim DO Work Phone: [facility] Comment on above: earlene Ingram RN (bed scal e measurement) on 03/20/2021 03-18-2021 15:02-0500 Body temperature 99.5 [degF] Boo Castro MD Work Phone: [facility] 03-18-2021 15:02-0500 Diastolic blood pressure 82 mm[Hg] Boo Castro MD Work Phone: [facility] 03-18-2021 15:02-0500 Heart rate 111 /min Boo Castro MD Work Phone: [facility] 03-18-2021 15:02-0500 Respiratory rate 18 /min Boo Castro MD Work Phone: [facility] 03-18-2021 15:02-0500 SaO2% (BldA) [Mass fraction] 93 % Boo Castro MD Work Phone: [facility] 03-18-2021 15:02-0500 Systolic blood pressure 111 mm[Hg] Boo Castro MD Work Phone: [facility] 10-30-2020 17:10-0400 Diastolic blood pressure 82 mm[Hg] Beth[facility] Clemons MD [facility] Work Phone: 10-30-2020 17:10-0400 Heart rate 110 /min Bethany Clemons MD Work Phone: [facility] Work Phone: 10-30-2020 17:10-0400 Respiratory rate 16 /min Bethany Clemons MD Work Phone: [facility] Work Phone: 10-30-2020 17:10-0400 SaO2% (BldA) [Mass fraction] 99 % Bethany Clemons MD Work Phone: [facility] Work Phone: 10-30-2020 17:10-0400 Systolic blood pressure 125 mm[Hg] Bethany Clemons MD Work Phone: [facility] Work Phone: 10-30-2020 13:02-0400 Body mass index (BMI) [Ratio] 24.65 kg/m2 Bethany Clemons MD Work Phone: [facility] Work Phone: 10-30-2020 13:02-0400 Body temperature 96.91 [degF] Bethany Clemons MD Work Phone: [facility] Work Phone: 10-30-2020 13:02-0400 Body weight 87.09 [...] 21:50-0500 BP Diastolic 71 mm[Hg] Abelardo Gabriel [facility] Work Phone: 06-26-2020 21:50-0500 BP Systolic 118 mm[Hg] Abelardo Gabriel [facility] Work Phone: 06-26-2020 21:50-0500 Pulse (Heart Rate) 84 /min Abelardo Gabriel [facility] Work Phone: 06-26-2020 21:50-0500 Pulse Oximetry 96 % Abelardo Gabriel [facility] Work Phone: 06-26-2020 21:50-0500 Respiratory Rate 16 [...] Work Phone: [facility] Work Phone: NEGATED: Highlighted [id number] 14:34-0500 BMI (Body Mass Index) 22.16 kg/m2 Ana Graham INTEGRITY ENG[employer] [facility] Work Phone: NEGATED: Highlighted [id number] 14:34-0500 Body weight 78.02 kg Ana Diesch INTEGRITY ENGINEER [facility] Work Phone: NEGATED: Highlighted [id number] 14:34-0500 Body weight 78 kg Ana Diesch INTEGRITY ENGINEER [facility] Work Phone: NEGATED: Highlighted [id number] 14:34-0500 BP Diastolic 66 mm[Hg] Ana Diesch INTEGRITY ENGINEER [facility] Work Phone: NEGATED: Highlighted [id number] 14:34-0500 BP Systolic 102 mm[Hg] Ana Diesch INTEGRITY ENGINEER [facility] Work Phone: NEGATED: Highlighted [id number] 14:34-0500 Height 187.96 cm Ana Diesch INTEGRITY ENGINEER [facility] Work Phone: NEGATED: Highlighted [id number] 14:34-0500 Height 188 cm Ana Diesch INTEGRITY ENGINEER [facility] Work Phone: NEGATED: Highlighted [id number] 14:34-0500 Pulse (Heart Rate) 104 /min Ana Diesch INTEGRITY ENGINEER [facility] Work Phone: Encounters Encounter Date Encounter Type Care Provider Facility Start: 03-10-2025 ambulatory Renard Burgos OLS Faci lity:[facility] Start: 03-03-2025 ambulatory Renard Burgos OLS Faci lity:[facility] Start: 02-24-2025 ambulatory Renard Burgos OLS Faci lity:[facility] Start: 02-21-2025 ambulatory Renard Burgos OLS Faci lity:[facility] Start: 02-17-2025 ambulatory Renard Burgos OLS Faci lity:[facility] Start: 02-10-2025 ambulatory Renard Burgos OLS Faci lity:[facility] Start: 02-03-2025 Registered Referred Renard Burgos - [facility] Start: 02-03-2025 End: 02-03-2025 ambulatory Renard GARLAND Facility:[facility] Start: 01-27-2025 Registered Referred Renard Burgos - [facility] Start: 01-27-2025 End: 01-27-2025 ambulatory Renard Burgos OLS Facility:[facility] Start: 01-20-2025 Registered Referred Renard Burgos - [facility] Start: 01-20-2025 End: 01-20-2025 ambulatory Renard Burgos OLS Facility:[facility] Start: 01-13-2025 Registered Referred Renard Burgos - [facility] Start: 01-13-2025 End: 01-13-2025 ambulatory Renard GARLAND Facility:[facility] Start: 01-10-2025 Registered Referred Renard Amezquitaros - [facility] Start: 01-10-2025 End: 01-10-2025 ambulatory Renard GARLAND Facility:[facility] Start: 01-06-2025 Registered Referred Renard Amezquitaros - [facility] Start: 01-06-2025 End: 01-06-2025 ambulatory Renard GARLAND Facility:[facility] Start: 12-31-2024 Registered Referred Renard Burgos - [facility] Start: 12-31-2024 End: 12-31-2024 ambulatory Renard GARLAND Facility:[facility] Start: 12-23-2024 End: 12-23-2024 ambulatory Renard GARLAND -[facility] Start: 12-23-2024 End: 12-23-2024 Departed Referred Renard Amezquitaros -[facility] Start: 12-23-2024 End: 12-23-2024 ambulatory Renard Burgos OLS Facility:[facility] Start: 12-16-2024 ambulatory Renard GARLAND Faci lity:[facility] Start: 12-16-2024 Registered Referred Renard Amezquitaros - [facility] Start: 12-09-2024 ambulatory Renard GARLAND Faci lity:[facility] Start: 12-09-2024 Registered Referred Renard Burgos - [facility] Start: 12-02-2024 Registered Referred Renard Amezquitaros - [facility] Start: 12-02-2024 End: 12-02-2024 ambulatory Renard GARLAND Facility:[facility] Start: 11-25-2024 Registered Referred Renard Amezquitaros - [facility] Start: 11-25-2024 End: 11-25-2024 ambulatory Renard GARLAND Facility:[facility] Start: 11-18-2024 ambulatory Renard GARLAND Faci lity:[facility] Start: 11-18-2024 Registered Referred Renard Amezquitaros - [facility] Start: 11-11-2024 Registered Referred Renard Burgos - [facility] Start: 11-11-2024 End: 11-11-2024 ambulatory Renard GARLAND Facility:[facility] Start: 11-04-2024 Registered Referred Renard Burgos - [facility] Start: 11-04-2024 End: 11-04-2024 ambulatory Renard GARLAND Facility:[facility] Start: 10-28-2024 Registered Referred Renard Amezquitaros - [facility] Start: 10-28-2024 End: 10-28-2024 ambulatory Renard GARLAND Facility:[facility] Start: 10-21-2024 End: 10-21-2024 ambulatory Renard Burgos OLS -[facility] Start: 10-21-2024 End: 10-21-2024 Departed Referred Renard Burgos -[facility] Start: 10-21-2024 Registered Referred Renard Amezquitaros - [facility] Start: 10-21-2024 End: 10-21-2024 ambulatory Renard GARLAND Facility:[facility] Start: 10-14-2024 ambulatory Renard GARLAND Faci lity:[facility] Start: 10-14-2024 Registered Referred Renard Amezquitaros - [facility] Start: 10-07-2024 ambulatory Renard GARLAND Faci lity:[facility] Start: 10-07-2024 Registered Referred Renard Burgos - [facility] Start: 09-30-2024 ambulatory Renard GARLAND Faci lity:[facility] Start: 09-30-2024 Registered Referred Renard Burgos - [facility] Start: 09-24-2024 End: 09-24-2024 ambulatory Renard GARLAND -[facility] Start: 09-24-2024 End: 09-24-2024 Departed Referred Renard Burgos -[facility] Start: 09-24-2024 Registered Referred Renard Burgos - [facility] Start: 09-24-2024 End: 09-24-2024 ambulatory Renard GARLAND Facility:[facility] Start: 09-16-2024 End: 09-16-2024 ambulatory Renard GARLAND -[facility] Start: 09-16-2024 End: 09-16-2024 Departed Referred Renard Burgos -[facility] Start: 09-16-2024 Registered Referred Renard Burgos - [facility] Start: 09-16-2024 End: 09-16-2024 ambulatory Renard GARLAND Facility:[facility] Start: 09-11-2024 End: 09-11-2024 ambulatory Renard GARLAND [facility] Work Phone: Start: 09-11-2024 End: 09-11-2024 Departed Referred Renard Burgos -[facility] Start: 09-11-2024 Registered Referred Renard Burgos - [facility] Start: 09-11-2024 End: 09-11-2024 ambulatory Renard GARLAND Facility:[facility] Start: 09-09-2024 End: 09-09-2024 ambulatory Renard GARLAND [facility] Work Phone: Start: 09-09-2024 End: 09-09-2024 Departed Referred Renard Burgos -[facility] Start: 09-09-2024 Registered Referred Renard Burgos - [facility] Start: 09-09-2024 End: 09-09-2024 ambulatory Renard GARLAND Facility:[facility] Start: 09-02-2024 End: 09-02-2024 ambulatory Renard Shellierustam GARLAND [facility] Work Phone: Start: 09-02-2024 End: 09-02-2024 Departed Referred Renard Burgos -[facility] Start: 09-02-2024 Registered Referred Renard [facility] Start: 09-02-2024 End: 09-02-2024 ambulatory Renard GARLAND Facility:[facility] Start: 08-26-2024 End: 08-26-2024 ambulatory Renard GARLAND [facility] Work Phone: Start: 08-26-2024 End: 08-26-2024 Departed Referred Renard Burgos -[facility] Start: 08-26-2024 Registered Referred Renard Burgos - [facility] Start: 08-26-2024 End: 08-26-2024 ambulatory Renard GARLAND Facility:[facility] Start: 08-23-2024 End: 08-23-2024 Departed Referred Renard Burgos -[facility] Start: 08-23-2024 Registered Referred Renard Molinauary [facility] Start: 08-23-2024 End: 08-23-2024 ambulatory Renard GARLAND Facility:[facility] Start: 08-19-2024 End: 08-19-2024 ambulatory Renard GARLAND [facility] Work Phone: Start: 08-19-2024 End: 08-19-2024 Departed Referred Renard Burgos -[facility] Start: 08-19-2024 Registered Referred Renard Burgos - [facility] Start: 08-19-2024 End: 08-19-2024 ambulatory Renard GARLAND Facility:[facility] Start: 08-12-2024 End: 08-12-2024 ambulatory Renard GARLAND [facility] Work Phone: Start: 08-12-2024 End: 08-12-2024 Departed Referred Peter Katsaros -[facility] Start: 08-12-2024 Registered Referred Renard Burgos - [facility] Start: 08-12-2024 End: 08-12-2024 ambulatory Renard GARLAND Facility:[facility] Start: 08-05-2024 End: 08-05-2024 Departed Referred Renard Burgos -[facility] Start: 08-05-2024 Registered Referred Renard Burgos - [facility] Start: 08-05-2024 End: 08-05-2024 ambulatory Renard GARLAND Facility:[facility] Start: 07-29-2024 End: 07-29-2024 ambulatory Renard GARLAND [facility] Work Phone: Start: 07-29-2024 End: 07-29-2024 Departed Referred Renard Burgos -[facility] Start: 07-29-2024 Registered Referred Renard Burgos - [facility] Start: 07-29-2024 End: 07-29-2024 ambulatory Renard GARLAND Facility:[facility] Start: 07-22-2024 End: 07-22-2024 ambulatory Renard GARLAND [facility] Work Phone: Start: 07-22-2024 End: 07-22-2024 Departed Referred Renard Burgos -[facility] Start: 07-22-2024 Registered Referred Renard Burgos - [facility] Start: 07-22-2024 End: 07-22-2024 ambulatory Renard GARLAND Facility:[facility] Start: 07-16-2024 End: 07-16-2024 ambulatory Renard GARLAND [facility] Work Phone: Start: 07-16-2024 End: 07-16-2024 Departed Referred Renard Burgos -[facility] Start: 07-16-2024 Registered Referred Renard Burgos - [facility] Start: 07-15-2024 End: 07-16-2024 ambulatory Renard [facility]ARLAND [facility] [facility] Start: 07-15-2024 End: 07-15-2024 Departed Referred Renard Hensleysaros [facility] Start: 07-15-2024 Registered Referred Renard Shelliesaros - [employer] Start: 07-15-2024 End: 07-15-2024 ambulatory Renard GARLAND Facility:[facility] Start: 07-08-2024 End: 07-08-2024 ambulatory Renard GARLAND [facility] Work Phone: Start: 07-08-2024 End: 07-08-2024 Departed Referred Renard H[facility]aros [facility] Start: 07-08-2024 Registered Referred Renard Hensleysaros - [employer] Start: 07-08-2024 End: 07-08-2024 ambulatory Renard GARLAND Facility:[facility] Start: 07-01-2024 End: 07-01-2024 ambulatory Renard GARLAND [facility] Work Phone: Start: 07-01-2024 End: 07-01-2024 Departed Referred Renard Amezquitaros [facility] Start: 07-01-2024 Registered Referred Renard Shelliesaros - [employer] Start: 07-01-2024 End: 07-01-2024 ambulatory Renard GARLAND Facility:[facility] Start: 06-27-2024 End: 06-27-2024 ambulatory Renard GARLAND [facility] Work Phone: Start: 06-27-2024 End: 06-27-2024 Departed Referred Renard Hensleysaros [facility] Start: 06-27-2024 Registered Referred Renard Hensleysaros - [employer] Start: 06-27-2024 End: 06-27-2024 ambulatory Renard GARLAND Facility:[facility] Start: 06-24-2024 End: 06-24-2024 Subsequent hospital visit by physician Rashaad Pink NP Work Phone: [facility] CT Imaging Comment on above: Chronic cough Start: 06-24-2024 End: 06-24-2024 ambulatory ALONYuly SARAH [facility] Start: 06-24-2024 End: 06-24-2024 Departed Referred Renard Burgos [facility] Start: 06-24-2024 Registered Referred Renard Burgos - [employer] Start: 06-24-2024 End: 06-24-2024 ambulatory Renard GARLAND Facility:[facility] Start: 06-17-2024 End: 06-17-2024 ambulatory Renard GARLAND [facility] Work Phone: Start: 06-17-2024 End: 06-17-2024 Departed Referred Renard Burgos [facility] Start: 06-17-2024 Registered Referred Renard Burgos - [employer] Start: 06-17-2024 End: 06-17-2024 ambulatory Renard GARLNAD Facility:[facility] Start: 06-12-2024 End: 09-11-2024 Transcribe Orders Rashaad Contreraser DENTIST ATTENDANT - [employer] Work Phone: [facility] Central Scheduling Comment on above: Chronic cough (Prima ry Dx) Start: 06-10-2024 End: 06-10-2024 ambulatory Renard GARLAND [facility] Work Phone: Start: 06-10-2024 End: 06-10-2024 Departed Referred Renard Burgos [facility] Start: 06-10-2024 Registered Referred Renard uBrgos - [employer] Start: 06-10-2024 End: 06-10-2024 ambulatory Renard GARLAND Facility:[facility] Start: 06-07-2024 End: 06-07-2024 ambulatory Renard GARLAND [facility] Work Phone: Start: 06-07-2024 End: 06-07-2024 Departed Referred Renard Burgos [facility] Start: 06-07-2024 Registered Referred Renard Burgos - [employer] Start: 06-07-2024 End: 06-07-2024 ambulatory Renard GARLAND Facility:[facility] Start: 06-03-2024 End: 06-03-2024 ambulatory Renard GARLAND [facility] Work Phone: Start: 06-03-2024 End: 06-03-2024 Departed Referred Renard Burgos [facility] Start: 06-03-2024 End: 06-03-2024 ambulatory Renard GARLAND Facility:[facility] Start: 05-27-2024 End: 05-27-2024 Departed Referred Renard Burgos [facility] Start: 05-27-2024 End: 05-27-2024 ambulatory Renard GARLAND Facility:[facility] Start: 05-20-2024 End: 05-20-2024 Departed Referred Renard Burgos [facility] Start: 05-20-2024 End: 05-20-2024 ambulatory Renard GARLAND Facility:[facility] Start: 05-13-2024 End: 05-13-2024 Departed Referred Renard Burgos [facility] Start: 05-13-2024 End: 05-13-2024 ambulatory Renard GARLAND Facility:[facility] Start: 05-06-2024 End: 05-06-2024 Departed Referred Renard Burgos [facility] Start: 05-06-2024 End: 05-06-2024 ambulatory Renard GARLAND Facility:[facility] Start: 05-03-2024 End: 05-03-2024 Telephone encounter Renard Burgos Work Phone: [facility] Clinical Communication Comment on above: Other Start: 04-29-2024 End: 04-29-2024 Departed Referred Renard Amezquitaros [facility] Start: 04-29-2024 End: 04-29-2024 ambulatory Renard GARLAND Facility:[facility] Start: 04-22-2024 End: 04-22-2024 Departed Referred Renard Hensleysaros [facility] Start: 04-22-2024 End: 04-22-2024 ambulatory Renard GARLAND Facility:[facility] Start: 04-15-2024 End: 04-15-2024 Departed Referred Renard Burgos [facility] Start: 04-15-2024 End: 04-15-2024 ambulatory Renard GARLAND Facility:[facility] Start: 04-08-2024 ambulatory Renard GARLAND Faci lity:[facility] Start: 04-08-2024 Registered Referred Renard Burgos - [employer] Start: 04-01-2024 ambulatory Renard GARLAND Faci lity:[facility] Start: 04-01-2024 Registered Referred Renard Burgos - [employer] Start: 03-25-2024 End: 03-25-2024 Departed Referred Renard Burgos [facility] Start: 03-25-2024 End: 03-25-2024 ambulatory Renard GARLAND Facility:[facility] Start: 03-18-2024 End: 03-18-2024 Departed Referred Renard Burgos [facility] Start: 03-18-2024 End: 03-18-2024 ambulatory Renard GARLAND Facility:[facility] Start: 03-11-2024 End: 03-11-2024 Departed Referred Renard Burgos [facility] Start: 11-22-2023 End: 11-22-2023 ambulatory RENARD BURGOS [facility] Start: 11-22-2023 End: 11-22-2023 Subsequent hospital [...] type (Primary Dx) Start: 08-07-2023 [facility] Start: 07-31-2023 End: 07-31-2023 ambulatory [facility] Work Phone: Start: 07-31-2023 End: 07-31-2023 [facility] Start: 07-31-2023 [facility] Start: 07-24-2023 End: 07-24-2023 ambulatory [facility] Work Phone: Start: 07-24-2023 End: 07-24-2023 [facility] [employer] Start: 07-17-2023 End: 07-17-2023 ambulatory [facility] Work Phone: Start: 07-17-2023 End: 07-17-2023 [facility] Start: 07-17-2023 [facility] Start: 07-10-2023 End: 07-10-2023 ambulatory [facility] Work Phone: Start: 07-10-2023 End: 07-10-2023 [facility] Start: 07-10-2023 [facility] Start: 07-03-2023 End: 07-03-2023 ambulatory [facility] Work Phone: Start: 07-03-2023 End: 07-03-2023 [facility] Start: 07-03-2023 [facility] Start: 06-26-2023 [facility] Start: 06-19-2023 End: 06-19-2023 ambulatory [facility] Work Phone: Start: 06-19-2023 End: 06-19-2023 Departed Referred [facility] Start: 06-19-2023 Registered Referred [facility] Start: 06-12-2023 End: 06-12-2023 ambulatory [facility] Work Phone: Start: 06-12-2023 End: 06-12-2023 [facility] Start: 06-12-2023 Registered Referred [facility] Start: 06-05-2023 End: 06-05-2023 ambulatory [facility] Work Phone: Start: 06-05-2023 End: 06-05-2023 [facility] Start: 06-05-2023 [facility] Start: 05-29-2023 End: 05-29-2023 [facility] Start: 05-29-2023 Registered Referred [facility] Start: 05-22-2023 End: 05-22-2023 ambulatory [facility] Work Phone: Start: 05-22-2023 End: 05-22-2023 [facility] Start: 05-22-2023 Registered Referred [facility] Start: 05-15-2023 End: 05-15-2023 [facility] Start: 05-15-2023 [facility] Start: 05-08-2023 End: 05-08-2023 ambulatory [facility] Work Phone: Start: 05-08-2023 End: 05-08-2023 [facility] Start: 04-17-2023 End: 04-17-2023 ambulatory [facility] Work Phone: Start: 04-17-2023 End: 04-17-2023 [facility] Start: 04-17-2023 Registered Referred [facility] Start: 04-14-2023 End: 04-14-2023 ambulatory [facility] Work Phone: Start: 04-14-2023 End: 04-14-2023 [facility] Start: 04-14-2023 Registered Referred [facility] Start: 04-10-2023 End: 04-10-2023 [facility] Start: 04-10-2023 [facility] Start: 04-03-2023 End: 04-03-2023 ambulatory [facility] Work Phone: Start: 04-03-2023 End: 04-03-2023 [facility] Start: 04-03-2023 Registered Referred [facility] Start: 03-27-2023 End: 03-27-2023 ambulatory [facility] Work Phone: Start: 03-27-2023 End: 03-27-2023 [facility] [employer] [facility] Start: 03-27-2023 [facility] Start: 03-20-2023 End: 03-20-2023 ambulatory [facility] Work Phone: Start: 03-20-2023 End: 03-20-2023 [facility] Start: 03-20-2023 [facility] Start: 03-16-2023 End: 03-16-2023 ambulatory [facility] Work Phone: Start: 03-16-2023 End: 03-16-2023 Departed Referred [facility] Start: 03-16-[address] [facility] Start: 03-13-2023 End: 03-13-2023 ambulatory [facility] Work Phone: Start: 03-13-2023 End: 03-13-2023 Departed Referred [facility] Start: 03-06-2023 End: 03-06-2023 ambulatory [facility] Work Phone: Start: 03-06-2023 End: 03-06-2023 Departed Referred [facility] Start: 03-06-2023 Registered Referred [facility] Start: 02-27-2023 End: 02-27-2023 ambulatory [facility] Work Phone: Start: 02-27-2023 End: 02-27-2023 Departed Referred [facility] Start: 02-20-2023 End: 02-20-2023 ambulatory [facility] Work Phone: Start: 02-20-2023 End: 02-20-2023 Departed Referred [facility] Start: 02-20-2023 Registered Referred [facility] Start: 02-13-2023 End: 02-13-2023 ambulatory [facility] Work Phone: Start: 02-13-2023 End: 02-13-2023 Departed Referred [facility] Start: 02-13-[address] [facility] Start: 02-06-2023 End: 02-06-2023 ambulatory [facility] Work Phone: Start: 02-06-2023 End: 02-06-2023 Departed Referred [facility] Start: 02-06-[address] [facility] Start: 01-30-2023 End: 01-30-2023 ambulatory [facility] Work Phone: Start: 01-30-2023 End: 01-30-2023 [facility] Start: 01-30-2023 [facility] Start: 01-23-2023 End: 01-23-2023 [facility] Start: 01-23-2023 [facility] Start: 01-16-2023 End: 01-16-2023 ambulatory [facility] Work Phone: Start: 01-16-2023 End: 01-16-2023 [facility] Start: 01-16-2023 [facility] Start: 01-09-2023 End: 01-09-2023 [facility] Start: 01-09-2023 [facility] Start: 01-03-2023 End: 01-03-2023 ambulatory [facility] Work Phone: Start: 01-03-2023 End: 01-03-2023 [facility] Start: 01-03-2023 [facility] Start: 12-26-2022 End: 12-26-2022 ambulatory [facility] Work Phone: Start: 12-26-2022 End: 12-26-2022 [facility] Start: 12-26-2022 [facility] Start: 12-19-2022 End: 12-19-2022 ambulatory [facility] Work Phone: Start: 12-19-2022 End: 12-19-2022 Departed Referred [facility] Start: 12-19-[address] [facility] Start: 12-12-2022 End: 12-12-2022 Departed Referred [facility] Start: 12-12-2022 Registered Referred [facility] Start: 12-05-2022 End: 12-05-2022 ambulatory [facility] Work Phone: Start: 12-05-2022 End: 12-05-2022 [facility] Start: 12-05-2022 Registered Referred [facility] Start: 11-28-2022 End: 11-28-2022 ambulatory [facility] Work Phone: Start: 11-28-2022 End: 11-28-2022 [facility] Start: 11-28-2022 Registered Referred [facility] Start: 11-21-2022 End: 11-21-2022 ambulatory [facility] Work Phone: Start: 11-21-2022 End: 11-21-2022 [facility] Start: 11-21-2022 Registered Referred [facility] Start: 11-14-2022 End: 11-14-2022 ambulatory [facility] Work Phone: Start: 11-14-2022 End: 11-14-2022 Departed Referred [facility] Start: 11-14-[address] [facility] Start: 11-07-[address] [facility] Start: 10-31-2022 End: 10-31-2022 ambulatory [facility] Work Phone: Start: 10-31-2022 End: 10-31-2022 Departed Referred [facility] Start: 10-31-[address] [facility] Start: 10-24-2022 End: 10-24-2022 ambulatory [facility] Work Phone: Start: 10-24-2022 End: 10-24-2022 Departed Referred [facility] Start: 10-24-[address] [facility] Start: 10-17-2022 End: 10-17-2022 Departed Referred [facility] Start: 10-17-2022 Registered Referred [facility] Start: 10-10-2022 End: 10-10-2022 ambulatory [facility] Work Phone: Start: 10-10-2022 End: 10-10-2022 Departed Referred [facility] Start: 10-10-[address] [facility] Start: 10-03-2022 End: 10-03-2022 ambulatory [facility] Work Phone: Start: 10-03-2022 End: 10-03-2022 Departed Referred [facility] Start: 09-19-2022 End: 09-19-2022 Departed Referred [facility] Start: 09-19-[address] [facility] Start: 09-12-2022 End: 09-12-2022 ambulatory [facility] Work Phone: Start: 09-12-2022 End: 09-12-2022 Departed Referred [facility] Start: 09-05-2022 End: 09-05-2022 Departed Referred [facility] Start: 09-05-[address] [facility] Start: 08-29-2022 End: 08-29-2022 Departed Referred [facility] Start: 08-29-2022 [facility] Start: 08-22-2022 End: 08-22-2022 ambulatory [facility] Work Phone: Start: 08-22-2022 End: 08-22-2022 Departed Referred [facility] Start: 08-22-[address] [facility] Start: 08-15-2022 End: 08-15-2022 ambulatory [facility] Work Phone: Start: 08-15-2022 End: 08-15-2022 [facility] Start: 08-15-[address] [facility] Start: 08-08-2022 End: 08-08-2022 Departed Referred [facility] Start: 08-08-[address] [facility] Start: 08-01-2022 End: 08-01-2022 ambulatory [facility] Work Phone: Start: 08-01-2022 End: 08-01-2022 Departed Referred [facility] Start: 08-01-2022 [facility] Start: 07-25-2022 End: 07-25-2022 ambulatory [facility] Work Phone: Start: 07-25-2022 End: 07-25-2022 Departed Referred [facility] Start: 07-25-[address] [facility] Start: 07-19-2022 End: 07-19-2022 [facility] Start: 07-19-2022 Registered Referred [facility] Start: 07-18-2022 End: 07-18-2022 ambulatory [facility] Work Phone: Start: 07-18-2022 End: 07-18-2022 [facility] Start: 07-18-2022 Registered Referred [facility] Start: 07-11-2022 End: 07-11-2022 ambulatory [facility] Work Phone: Start: 07-11-2022 End: 07-11-2022 [facility] Start: 07-11-2022 [facility] Start: 07-04-2022 End: 07-04-2022 [facility] Start: 07-04-2022 [facility] Start: 06-27-2022 End: 06-27-2022 ambulatory [facility] Work Phone: Start: 06-27-2022 End: 06-27-2022 [facility] Start: 06-27-2022 [facility] Start: 06-20-2022 End: 06-20-2022 ambulatory [facility] Work Phone: Start: 06-20-2022 End: 06-20-2022 [facility] Start: 06-20-2022 [facility] Start: 06-13-2022 End: 06-13-2022 ambulatory [facility] Work Phone: Start: 06-13-2022 End: 06-13-2022 [facility] Start: 06-13-2022 [facility] Start: 06-06-2022 End: 06-06-2022 Departed Referred [facility] [employer] Start: 06-06-2022 Registered Referred [facility] [employer] Start: 05-30-2022 End: 05-30-2022 ambulatory [facility] Work Phone: Start: 05-30-2022 End: 05-30-2022 Departed Referred [facility] [employer] Start: 05-23-2022 End: 05-23-2022 ambulatory [facility] Work Phone: Start: 05-23-2022 End: 05-23-2022 Departed Referred [facility] [employer] Start: 05-23-2022 Registered Referred [facility] [employer] Start: 05-20-2022 End: 05-20-2022 Emergency department patient visit Abelardo A Gabriel GOMEZ Work Phone: [facility] ED Comment on above: Dislodged gastrostom y tube (Primary Dx) Start: 05-16-2022 End: 05-16-2022 Departed Referred [facility] [employer] Start: 05-16-2022 [facility] [employer] Start: 05-09-2022 End: 05-09-2022 ambulatory [facility] Work Phone: Start: 05-09-2022 End: 05-09-2022 [facility] [employer] [facility] Start: 05-09-2022 [facility] [employer] Start: 05-03-2022 End: 05-03-2022 ambulatory [facility] Work Phone: Start: 05-03-2022 End: 05-03-2022 Departed Referred [facility] [employer] Start: 05-03-2022 Registered Referred [facility] [employer] Start: 04-26-2022 End: 04-26-2022 Departed Referred [facility] Start: 04-26-2022 [facility] Start: 04-18-2022 End: 04-18-2022 ambulatory [facility] Work Phone: Start: 04-18-2022 End: 04-18-2022 [facility] Start: 04-18-2022 [facility] Start: 04-14-2022 End: 04-14-2022 ambulatory [facility] Work Phone: Start: 04-14-2022 End: 04-14-2022 [facility] Start: 04-14-2022 [facility] Start: 04-11-2022 End: 04-11-2022 ambulatory [facility] Work Phone: Start: 04-11-2022 End: 04-11-2022 [facility] Start: 04-11-2022 [facility] Start: 04-04-2022 End: 04-04-2022 ambulatory [facility] Work Phone: Start: 04-04-2022 End: 04-04-2022 [facility] Start: 04-04-2022 [facility] Start: 03-28-2022 End: 03-28-2022 ambulatory [facility] Work Phone: Start: 03-28-2022 End: 03-28-2022 [facility] Start: 03-28-2022 [facility] Start: 03-21-2022 End: 03-21-2022 ambulatory [facility] Work Phone: Start: 03-21-2022 End: 03-21-2022 Departed Referred [facility] Start: 03-21-[address] [facility] [employer] Start: 03-14-2022 End: 03-14-2022 [facility] Start: 03-14-2022 Registered Referred [facility] Start: 2022 End: 2022 ambulatory [facility] Work Phone: Start: 2022 End: 2022 [facility] [facility] Start: 2022 [facility] Start: 02-28-2022 End: 02-28-2022 [facility] Start: 02-28-2022 [facility] Start: 02-21-2022 End: 02-21-2022 ambulatory [facility] Work Phone: Start: 02-21-2022 End: 02-21-2022 [facility] Start: 02-21-2022 Registered [facility]erred [facility] Start: 02-14-2022 End: 02-14-2022 ambulatory [facility] Work Phone: Start: 02-14-2022 End: 02-14-2022 [facility] Start: 02-14-[address] [facility] Start: 02-07-2022 End: 02-07-2022 ambulatory [facility] Work Phone: Start: 02-07-2022 End: 02-07-2022 [facility] Start: 02-07-2022 Registered Ref[facility] Start: 01-31-2022 End: 01-31-2022 ambulatory [facility] Work Phone: Start: 01-31-2022 End: 01-31-2022 [facility] Start: 01-31-2022 [facility] Start: 01-24-2022 End: 01-24-2022 ambulatory [facility] Work Phone: Start: 01-24-2022 End: 01-24-2022 [facility] Start: 01-24-2022 [facility] Start: 01-17-2022 End: 01-17-2022 [facility] Start: 01-17-2022 [facility] Start: 01-10-2022 End: 01-10-2022 ambulatory [facility] Work Phone: Start: 01-10-2022 End: 01-10-2022 [facility] Start: 01-10-2022 [facility] Start: 01-04-2022 End: 01-04-2022 ambulatory [facility] Work Phone: Start: 01-04-2022 End: 01-04-2022 [facility] Start: 01-04-2022 [facility] Start: 12-27-2021 End: 12-27-2021 ambulatory [facility] Work Phone: Start: 12-27-2021 End: 12-27-2021 [facility] Start: 12-27-2021 [facility] Start: 12-20-2021 End: 12-20-2021 ambulatory [facility] Work Phone: Start: 12-20-2021 End: 12-20-2021 Departed Referred [facility] Start: 12-20-2021 [facility] Start: 12-13-2021 End: 12-13-2021 [facility] Start: 12-13-2021 [facility] Start: 12-06-2021 End: 12-06-2021 ambulatory [facility] Work Phone: Start: 12-06-2021 End: 12-06-2021 [facility] Start: 12-06-2021 [facility] Start: 11-29-2021 End: 11-29-2021 ambulatory [facility] Work Phone: Start: 11-29-2021 End: 11-29-2021 Departed Referred [facility] Start: 11-29-2021 Registered [facility] Start: 11-22-2021 End: 11-22-2021 Departed Referred [facility] Start: 11-22-2021 Registered [facility] Start: 11-15-2021 End: 11-15-2021 Departed Referred [facility] Start: 11-15-2021 Registered [facility]erred [facility] Start: 11-08-2021 End: 11-08-2021 Departed [facility] Start: 10-25-[address] [facility] Start: 10-18-2021 [facility] Start: 10-11-2021 Registered [facility] Start: 10-04-[address] [facility] Start: 09-28-2021 End: 09-28-2021 Departed Referred [facility] Start: 09-28-2021 Registered [facility] Start: 09-20-2021 End: 09-20-2021 [facility] Start: 09-20-2021 Registered [facility] Start: 09-13-2021 End: 09-13-2021 [facility] Start: 09-13-2021 Registered [facility] Start: 09-06-2021 End: 09-06-2021 [facility] Start: 09-06-2021 Registered [facility] Start: 08-30-2021 End: 08-30-2021 [facility] Start: 08-30-2021 Registered [facility] Start: 08-23-2021 End: 08-23-2021 [facility] Start: 08-23-2021 Registered Referred [facility] In[facility] Start: 08-18-2021 End: 08-18-2021 Departed [facility] Start: 08-18-2021 Registered [facility] Start: 08-16-2021 End: 08-16-2021 [facility] Start: 08-16-[address] [facility] Start: 08-09-2021 End: 08-09-2021 [facility] Start: 08-02-2021 End: 08-02-2021 Departed Referred [facility] Start: 08-02-2021 Registered [facility] Start: 07-26-2021 End: 07-26-2021 [facility] Start: 07-26-2021 Registered [facility] Start: 07-19-2021 End: 07-19-2021 [facility] Start: 07-19-2021 Registered [facility] Start: 07-12-2021 End: 07-12-2021 [facility] Start: 07-05-2021 End: 07-05-2021 [facility] Start: 07-05-2021 Registered [facility] Start: 06-28-2021 End: 06-28-2021 [facility] Start: 06-28-2021 Registered Referred [facility] In[facility] Start: 06-21-2021 End: 06-21-2021 [facility] Start: 06-21-2021 Registered [facility] Start: 06-14-2021 Registered Referred [facility] In[facility] Start: 06-07-2021 End: 06-07-2021 [facility] Start: 06-07-2021 Registered Referred [facility] Start: 05-31-2021 End: 05-31-2021 [facility] Start: 05-31-2021 [facility] Start: 05-24-2021 End: 05-24-2021 Departed [facility] Start: 05-17-2021 Registered [facility] Start: 05-15-2021 End: 05-15-2021 Emergency department patient visit Timothy Burton DO Work Phone: [facility] Comment on above: PEG tube malfunction (HCC) (Primary Dx) Start: 05-14-2021 Registered Referred [facility] Start: 05-10-2021 Registered Referred [facility] Start: 05-03-2021 Registered Referred [facility] Start: 04-26-2021 Registered Referred [facility] Start: 04-19-2021 Registered Referred [facility] Start: 04-12-2021 Registered Referred [facility] [employer] Start: 04-07-2021 Registered Referred [facility] Start: 03-19-2021 End: 03-24-2021 Evaluation and management of inpatient Brady Desai DO Work Phone: [facility] Comment on above: Respiratory syncytia l virus (RSV) (Primary Dx); Hypoxia Start: 03-18-2021 End: 03-18-2021 Emergency department patient visit Boo Castro MD Work Phone: [facility] Comment on above: Respiratory syncytia l virus (RSV) (Primary Dx); Hypoxia Start: 10-30-2020 End: 10-30-2020 Emergency department patient visit Bethany Clemons MD Work Phone: [facility] Comment on above: Feeding tube dysfunc tion, initial encounter (Primary Dx) Start: 09-22-2020 End: 09-22-2020 Emergency department patient visit Elizabeth Moura MD Work Phone: [facility] Comment on above: PEG tube malfunction (HCC) (Primary Dx) Start: 06-26-2020 End: 06-26-2020 Emergency department patient visit Abelardo Rios Work Phone: [facility] ED Comment on above: PEG tube malfunction (HCC) (Primary Dx) Start: 05-22-2019 End: 05-22-2019 Patient encounter procedure Jarvis Kendall MD Work Phone: [facility] Work Phone: Start: 05-22-2019 End: 05-22-2019 Pt evaluation Jarvis Kendall MD Work Phone: [facility] Work Phone: Start: 05-16-2019 End: 05-16-2019 Emergency department patient visit Elizabeth Moura MD Work Phone: [facility] ED Comment on above: Contusion of right h ip, initial encounter (Primary Dx) Start: 08-15-2018 Evaluation and management of inpatient UNKNOWN PROVIDER [facility] Start: 07-08-2018 Evaluation and management of inpatient JORDAN GEUBE [facility] Start: 01-02-2003 End: 01-02-2003 Patient encounter procedure Beni Noonan Work Phone: [facility] Start: 01-02-2003 Results Only Beni Cappsr Work Phone: [facility] Procedures Date Procedure Procedure Detail Performing [...] EMDF, PT, BMP3M, PHOS3, MG3, CK3 #### [facility] [address], [place] #### [id number] #### [facility] [address] [place] [address] Start: 07-27-2018 Microscopic examinat ion of blood, culture Comment on above: Order Comment: Speci men Source Comment:Blood Performed By: #### H EMDF, PT, BMP3M, PHOS3, MG3, CK3 #### [facility] [address], [place] #### [id number] #### [facility] [address] [place] [address] Start: 07-19-2018 Microscopic examinat ion of blood, culture Comment on above: Order Comment: Speci men Source Comment:Blood Performed By: #### H EMDF, PT, BMP3M, PHOS3, MG3, CK3 #### [facility] [address], [place] #### [id number] #### [facility] [address] [place] [address] Start: 01-02-2003 CONVERTED SURGICAL PATHOLOGY Beni Shaista [...] Adults (1 - 1-dose 75+ series) [facility] Start: 01-10-2027 DTaP/Tdap/Td vaccine (2 - Td or Tdap) DTaP/Tdap/Td vaccine (2 - Td or Tdap) [facility] Start: 01-10-2027 DTaP/Tdap/Td vaccine (2 - Td) DTaP/Tdap/Td vaccine (2 - Td) [facility] Work Phone: Start: 01-10-2027 DTaP/Tdap/Td Vaccine s (2 - Td or Tdap) DTaP/Tdap/Td Vaccines (2 - Td or Tdap) [facility] Start: 02-24-2025 Registered Referred Registered [facility] [employer] Start: 02-21-2025 Registered Referred Registered Refer [employer] Start: 02-17-2025 Registered Referred Registered [facility] Start: 02-10-2025 Registered Referred Registered Refer [facility] [employer] Start: 12-30-2024 Influenza vaccination Influenz a Vaccine (Season Ended) [facility] Start: 03-22-2024 Diabetes mellitus screening Diabetes Screening [facility] Start: 12-31-2023 COVID-19 Vaccine ( season) COVID-19 Vaccine ( season) [facility] Start: 12-31-2023 COVID-19 Vaccine ( season) COVID-19 Vaccine ( season) [facility] Start: 12-31-2023 COVID-19 Vaccine ( season) COVID-19 Vaccine ( season) [facility] Start: 12-31-2023 Influenza vaccination [facility] Start: 01-30-2023 Bacteria identified in Urine by Culture Urine Culture [facility] Start: 01-30-2023 [facility] Start: 12-30-2022 COVID-19 Vaccine ( season) COVID-19 Vaccine ( season) [facility] Start: 2022 Pneumococcal 0-64 ye ars Vaccine (2 of 2 - PPSV23) Pneumococcal 0-64 years Vaccine (2 of 2 - PPSV23) [facility] Start: 2022 Pneumococcal 0-64 ye ars Vaccine (2 of 2) Pneumococcal 0-64 years Vaccine (2 of 2) [facility] Work Phone: Start: 2022 Pneumococcal Vaccine : 65+ Years (2 of 2 - PCV) Pneumococcal Vaccine: 65+ Years (2 of 2 - PCV) [facility] Start: 12-30-2021 Influenza vaccination Influenza Vacc ine (#1) [facility] Start: 12-30-2020 Influenza vaccination [facility] Start: 12-31-2019 Influenza vaccination Flu vaccine (# 1) [facility] Work Phone: Start: 08-18-2019 A1C test (Diabetic o r Prediabetic) A1C test (Diabetic or Prediabetic) [facility] Work Phone: Start: 08-18-2019 HbA1c (Bld) [Mass fraction] A1C test (Diabetic or Prediabetic) [facility] Work Phone: Start: 08-18-2019 Hemoglobin A1c measurement A1C test (Diabetic or Prediabetic) [facility] Start: 05-22-2019 End: 05-22-[address] [facility] Work Phone: Start: 02-07-2019 Lipid panel Lipid screen [facility] Start: 02-07-2019 Lipid screen Lipid screen [facility] Work Phone: Start: 12-30-2018 Influenza vaccination Flu vaccine (# 1) [facility] Work Phone: Start: 01-10-2018 Pneumococcal Vaccine : 50+ Years (2 of 2 - PCV) Pneumococcal Vaccine: 50+ Years (2 of 2 - PCV) [facility] Start: 01-10-2018 Pneumococcal Vaccine : 65+ Years (2 - PCV) Pneumococcal Vaccine: 65+ Years (2 - PCV) [facility] Start: 2017 RSV Immunization age d 60 or older (1 - 1-dose 60+ series) RSV Immunization aged 60 or older (1 - 1-dose 60+ series) [facility] Start: 2007 Colon cancer screen colonoscopy Colon cancer screen colonoscopy [facility] Work Phone: Start: 2007 Screening for malign ant neoplasm of colon Colon cancer screen colonoscopy [facility] Work Phone: Start: 2007 Shingles Vaccine (1 of 2) Shingles Vaccine (1 of 2) [facility] Start: 2007 Zoster Vaccines (1 o f 2) Zoster Vaccines (1 of 2) [facility] Start: 2002 Screening for malign ant neoplasm of colon Colon cancer screen colonoscopy [facility] Start: 1976 Hepatitis A Vaccines (1 of 2 - Risk 2-dose series) Hepatitis A Vaccines (1 of 2 - Risk 2-dose series) [facility] Start: 1975 Hepatitis C screening Hepatitis C Sc reening [facility] Start: 1969 COVID-19 Vaccine (1) COVID-19 Vaccin e (1) [facility] Start: 1969 Depression Monitoring Depression Mon [facility] Start: 1969 Depression Screen Depression Screen [facility] Start: 1962 COVID-19 Vaccine (1) COVID-19 Vaccin e (1) [facility] Start: 1957 COVID-19 Vaccine (#1) COVID-19 Vacci ne (#1) [facility] Start: 1957 Annual wellness visit Medicare Initial Physical (IPPE) [facility] Start: 1957 Hepatitis B Vaccines (1 of 3 - 3-dose series) Hepatitis B Vaccines (1 of 3 - 3-dose series) [facility] Start: 1957 Lipid panel Lipid Panel [facility] Start: 1957 Screening for malign ant neoplasm of colon [facility] Basic metabolic 2000 panel - Serum or Plasma Basic Metabolic Panel Lab Routine Daily until discontinued starting 03/23/2021, 2 completed [employer] Work Phone: Comment on above: Daily until disconti nued starting 03/23/2021, 2 completed CBC W Auto Different ial panel - Blood CBC Auto Differential Lab Routine Daily until discontinued starting 03/23/2021, 2 completed [employer] Work Phone: Comment on above: Daily until disconti nued starting 03/23/2021, 2 completed End: 06-24-2024 CT Chest WO contrast [facility] Work Phone: Comment on above: Once for 1 Occurrenc es starting 06/24/2024 until 06/24/2024 Culture, Blood 2 Culture, Blood 2 Microbiology STAT 03/19/2021 6:26 PM EST [employer] Work Phone: End: 03-20-2021 Culture, Respiratory Culture, Respiratory Microbiology Routine One Time for 1 Occurrences starting 03/20/2021 until 03/20/2021 [employer] Work Phone: Comment on above: One Time for 1 Occur rences starting 03/20/2021 until 03/20/2021 EKG 12 Lead EKG 12 Lead ECG STAT 03/18/2021 3:20 PM EST [employer] Work Phone: Feeding Tube Feeding Tube Pro cedures Routine 10/30/2020 2:22 PM EDT [employer] Work Phone: End: 09-22-2020 FL WATER SOLUBLE ENEMA W OR WO KUB FL WATER SOLUBLE ENEMA W OR WO KUB Imaging STAT Once for 1 Occurrences starting 09/22/2020 until 09/22/2020 [employer] Work Phone: Comment on above: Once for 1 Occurrenc es starting 09/22/2020 until 09/22/2020 End: 03-23-2021 Glucose [Mass/volume] in Serum or Plasma POCT GLUCOSE Point of Care Testing Routine Now Then Every 6hr for 7 Occurrences starting 03/21/2021 until 03/23/2021 [employer] Work Phone: Comment on above: Now Then Every 6hr f or 7 Occurrences starting 03/21/2021 until 03/23/2021 High Frequency Chest Wall Oscillation (HFCWO) High Frequency Chest Wall Oscillation (HFCWO) Respiratory Care Routine (respiratory use only) until discontinued starting 03/22/2021 [employer] Phone: Comment on above: (respirato ry use only) until discontinued starting 03/22/2021 End: 03-20-2021 Legionella Antigen, Urine Legionella Antigen, Urine Microbiology Routine One Time for 1 Occurrences starting 03/20/2021 until 03/20/2021 [employer] Phone: Comment on above: One Time for 1 Occur rences starting 03/20/2021 until 03/20/2021 Microscopic examinat ion of blood, culture Culture, Blood Microbiology STAT 03/19/2021 6:26 PM EST [employer] Work Phone: End: 03-20-2021 Microscopic observation [Identifier] in Unspecified specimen by Gram stain Gram Stain Microbiology Routine Once for 1 Occurrences starting 03/20/2021 until 03/20/2021 [employer] Phone: Comment on above: Once for 1 Occurrenc es starting 03/20/2021 until 03/20/2021 Oxygen therapy [[facility] Data Set] Initiate Oxygen Therapy Protocol Respiratory Care Routine Daily until discontinued starting 03/20/2021 [employer] Phone: Comment on above: Daily until disconti nued starting 03/20/2021 Patient Education \\cps-sql1\\CPS_ PtEducati on\\CDC_FALL_PREVENTION. pdf, \\cps-sql1\\CPS_PtEducati on\\[id number] [facility] Work Phone: RT Communication Order RT Commun ication Order Respiratory Care STAT Daily until discontinued starting 03/18/2021 [employer] Work Phone: Comment on above: Daily until disconti nued starting 03/18/2021 RT Communication Order RT Commun ication Order Respiratory Care Routine Daily until discontinued starting 03/20/2021 [employer] Work Phone: Comment on above: Daily until disconti nued starting 03/20/2021 End: 03-20-2021 STREP PNEUMONIAE ANTIGEN STREP PNEUMONIAE ANTIGEN Microbiology Routine One Time for 1 Occurrences starting 03/20/2021 until 03/20/2021 [facility] Work Phone: Comment on above: One Time for 1 Occur rences starting 03/20/2021 until 03/20/2021 End: 03-18-2021 Urinalysis Urinalysis Lab STAT One Time for 1 Occurrences starting 03/18/2021 until 03/18/2021 [facility] Work Phone: Comment on above: One Time for 1 Occur rences starting 03/18/2021 until 03/18/2021 End: 03-18-2021 Urine Drug Screen Urine Drug Screen Lab STAT One Time for 1 Occurrences starting 03/18/2021 until 03/18/2021 [facility] Work Phone: Comment on above: One Time for 1 Occur rences starting 03/18/2021 until 03/18/2021 End: 09-22-2020 XR ABDOMEN (KUB) (SINGLE AP VIEW) XR ABDOMEN (KUB) (SINGLE AP VIEW) Imaging Routine Once for 1 Occurrences starting 09/22/2020 until 09/22/2020 [facility] Work Phone: Comment on above: Once for 1 Occurrenc es starting 09/22/2020 until 09/22/2020 Immunizations Immunization Date Immunization Notes Care Provider [facility] 02-02-2021 influenza virus vacc ine, unspecified formulation 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 01-10-2017 pneumococcal polysaccharide vaccine, 23 valent Elizabeth Moura MD Work Phone: [facility] 01-10-2017 tetanus toxoid, redu delia diphtheria toxoid, and acellular pertussis vaccine, adsorbed Elizabeth Moura MD Work Phone: [facility] Work Phone: Payers Date Payer Category Payer Self-pay [id number] 2019 Medicaid [id number] 2019 Medicaid [id number] 2018 Private Health Insurance [id number]. [id number] 2018 Private Health Insurance [facility] xxxxxxxxx 2018-Present [phone] [address] [place] [address] xxxxxxxxx [id number] 1957 Unknown [id number] 2.16.840.1.845434.3.579.2. 668 1957 Unknown [id number] 2.16.840.1.564341.3.579.2. 668 Private Health Insurance Unknown [id number] 2.16.840.1.198847.3.579.2. 462 Unknown [id number] 2.16.840.1.044107.3.579.2. 462 Unknown [id number] 2.16.840.1.058141.3.579.2. 462 Unknown [id number] 2.16.840.1.383716.3.579.2. 462 Unknown [id number] 2.16.840.1.131205.3.579.2. 462 Unknown [id number] 2.16.840.1.285031.3.579.2. 462 Unknown [id number] 2.16.840.1.156433.3.579.2. 462 Unknown [id number] 2.16.840.1.540863.3.579.2. 462 Unknown [id number] 2.16.840.1.609672.3.579.2. 462 Unknown [id number] 2.16.840.1.258851.3.579.2. 462 Unknown [id number] 2.16.840.1.947627.3.579.2. 462 Unknown [id number] 2.16.840.1.193007.3.579.2. 462 Unknown [id number] 2.16.840.1.166095.3.579.2. 462 Unknown [id number] 2.16.840.1.882310.3.579.2. 462 Unknown [id number] 2.16.840.1.486014.3.579.2. 462 Unknown [id number] 2.16.840.1.456824.3.579.2. 462 Unknown [id number] 2.16.840.1.454853.3.579.2. 462 Unknown [id number] 2.16840.1.811504.3.579.2. 462 Unknown [id number] 2.16.840.1.759106.3.579.2. 462 Unknown [id number] 2.16.840.1.258170.3.579.2. 462 Unknown [id number] 2.16.840.1.870047.3.579.2. 462 Unknown [id number] 2.16.840.1.932934.3.579.2. 462 Unknown [id number] 2.16.840.1.834024.3.579.2. 462 Unknown [id number] 2.16.840.1.656873.3.579.2. 462 Unknown [id number] 2.16.840.1.918699.3.579.2. 462 Unknown [id number] 2.16.840.1.316171.3.579.2. 462 Unknown [id number] 2.16.840.1.480353.3.579.2. 462 Unknown [id number] 2.16.840.1.111280.3.579.2. 462 Unknown [id number] 2.16.840.1.408197.3.579.2. 462 Unknown [id number] 2.16.840.1.662821.3.579.2. 462 Unknown [id number] 2.16.840.1.545511.3.579.2. 462 Unknown [id number] 2.16840.1.849058.3.579.2. 462 Unknown [id number] 2.16840.1.894498.3.579.2. 462 Unknown [id number] 2.840.1.492236.3.579.2. 462 Unknown [id number] 2.840.1.255149.3.579.2. 462 Unknown [id number] 2.840.1.092840.3.579.2. 462 Unknown [id number] 2.840.1.114021.3.579.2. 462 Unknown [id number] 2.840.1.372537.3.579.2. 462 Unknown [id number] 2.16840.1.776356.3.579.2. 462 Unknown [id number] 2.16.840.1.218870.3.579.2. 462 Unknown [id number] 2.840.1.512678.3.579.2. 462 Unknown [id number] 2.16840.1.485398.3.579.2. 462 Unknown [id number] 2.16840.1.926504.3.579.2. 462 Unknown [id number] 2.16840.1.794683.3.579.2. 462 Unknown [id number] 2.16.840.1.328448.3.579.2. 462 Unknown [id number] 2.16840.1.451496.3.579.2. 462 Unknown [id number] 2.16.840.1.363572.3.579.2. 462 Unknown [id number] 2.16.840.1.171218.3.579.2. 462 Unknown [id number] 2.16.840.1.519184.3.579.2. 462 Unknown [id number] 2.16.840.1.399003.3.579.2. 462 Unknown [id number] 2.16.840.1.677040.3.579.2. 462 Unknown [id number] 2.16.840.1.320368.3.579.2. 462 Unknown [id number] 2.16.840.1.822832.3.579.2. 462 Unknown [id number] 2.16.840.1.826414.3.579.2. 462 Unknown [id number] 2.16.840.1.341677.3.579.2. 462 Unknown [id number] 2.16.840.1.017601.3.579.2. 462 Unknown [id number] 2.16.840.1.773307.3.579.2. 462 Unknown [id number] 2.16.840.1.808267.3.579.2. 462 Unknown [id number] 2.16.840.1.100369.3.579.2. 462 Social History Date Type Detail Facility Tobacco smoking status WIIS Unknown if ever smoked [facility] Work Phone: Start: 1955 Sex Assigned At Not on file [employer] Work Phone: Start: 11-05-2018 End: 06-26-2020 Tobacco smoking status NHIS Former smoker [employer] Work Phone: End: 02-06-2016 History of tobacco use Current smoker [facility] Work Phone: End: 02-06-2016 History of tobacco use Cigar Smoker [facility] Work Phone: Start: 02-05-2018 End: 06-26-2020 Tobacco use and exposure Never used [facility] Work Phone: Start: 06-26-2020 End: 05-20-2022 Alcohol intake Current drinker of alcohol (finding) [employer] Work Phone: Start: 07-08-2018 Alcohol Comment 2 times per wo rk, occasionally liquor [employer] Work Phone: Start: 05-10-2022 End: 05-20-2022 Exposure to SARS-CoV-2 (event) Not sure [employer] Work Phone: Start: 09-22-2020 End: 05-20-2022 Alcohol intake [facility] Start: 1955 Sex Assigned At Male [facility] End: 02-06-2016 History of tobacco use Cigarette Smoker [facility] Start: 05-20-2022 End: 10-02-[address] [facility] How often to you have a drink containing alcohol? Never [facility] How many standard drinks containing alcohol do you have on a typical day? Patient does not drink [facility] Start: 11-29-2021 End: 08-16-2024 Sex Male (finding) [facility] Tobacco smoking status NHIS Unknown if ever smoked [facility] Work Phone: NEGATED: Highlighted rowStart: 05-22-2019 End: 05-22-2019 Alcohol use Alcohol use [facility] Work Phone: NEGATED: Highlighted rowStart: 05-22-2019 End: 05-22-2019 Assertion Current some day smoker [facility] Work Phone: NEGATED: Highlighted rowStart: 05-22-2019 End: 05-22-2019 Details of drug misuse behavior Details of drug misuse behavior [facility] Work Phone: NEGATED: Highlighted rowStart: 05-22-2019 End: 05-22-2019 Tobacco use and exposure Tobacco use and exposure [facility] Work Phone: Clinical Notes 03-18-2021 to [...] to fax the information to the office. [phone] [facility] 05-03-2024 Miscellaneous Notes Gissel is calling to let Dr. Burgos know that the medication he prescribed he not certified, she is going to fax the information to the office. [phone] documented in this encounter [facility] 11-22-2023 History of Presen t illness [...] despite effort. 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 Frequency: Per treating BAFFLE MOUNTER Barriers: large osteophytes, bridging with anterior projection [...] Prior MBSS?: No, [facility] Current Diet: Puree diet with ?liquid (no information from [place]) Textures tested: - thin liquid, (cup edge) - mildly thick liquid, (cup edge) - puree, (teaspoon) Patient position: lateral Past Medical History: Past Medical History: Diagnosis Date TREVER (acute kidney injury) ([facility]) ([facility]) Alcohol abuse 07/08/2018 Anxiety C1 spinal cord injury ([facility]) ([facility]) Depression Fall 06/2018 Schizophrenia (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) 08/15/2018 Prolonged Q-T interval on ECG 08/15/2018 Abdominal wall abscess 08/15/2018 Central cord syndrome ([facility]/HCC) ([facility]) 08/15/2018 Respiratory failure after trauma ([facility]) 08/15/2018 Pressure ulcer of sacral region, stage [address] ([facility]) 08/09/2018 Urinary retention 07/28/2018 Acute respiratory failure with hypoxia ([facility]) 07/26/2018 Mild bibasilar atelectasis 07/26/2018 Hospital-acquired pneumonia 07/26/2018 Bilateral pleural effusion 07/26/2018 Ileus (CMS/HCC) ([facility]) 07/23/2018 TREVER (acute kidney injury) ([facility]) 07/23/2018 Hypokalemia 07/21/2018 Vertebral artery occlusion, bilateral 07/11/2018 Vitamin D insufficiency 07/10/2018 Alcohol abuse 07/08/2018 Closed wedge compression fracture of first thoracic vertebra ([facility]) 07/08/2018 Traumatic nondisp spondylolisthesis of C3 vertebra with closed fx, initial encounter ([facility]) 07/08/2018 Closed fracture dislocation of cervical spine ([facility]) 07/08/2018 Pain: Pt denies any current pain. Reason for current admission: Pt with h/o of PEG and trach from 2019. Pt is currently decannulated. H/o [employer] cervical fusion C2-C6. Noted very large connective [...] able to eat by mouth. Therapy Time BAFFLE MOUNTER Individual Minutes Time In: 1150 Time Out: 1215 Minutes: 25 ZACHARY Sun documented in this encounter [facility] 10-02-2023 Emergency department Note [facility] at bedside at this time Mami Lantigua RN 10/02/[address] [facility] 10-02-2023 Emergency department Note [facility] at bedside at this time Mami Lantigua RN 10/02/23 1427 This RN gave report to Marnie at [facility] at this time Mami Lantigua RN 10/02/23 1358 This RN went to evaluate patient, was on 2L o2 and does not wear at baseline, plan is dc, this RN turned o2 off to trial patient, spo2 monitor on Mami Lantigua RN 10/02/[address] via dory Alfaro RN 10/02/23 1043 Emergency Department Encounter [facility] ED [...] words are mis-transcribed.) Fei Farooq MD Acute [facility] Fei Farooq MD 10/02/23 1637 Pt was brought in via [facility] from [facility] for Left sided facial droop. Per EMS nurse is new and does not know patient very well but he is A&O x 2 at baseline. Per EMS the nurse states it was 20 mins ago. 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 EMS [...] BS 131. documented in this encounter [facility] 10-02-2023 Emergency department Note This RN gave report to Marnie at [facility] at this time Mami Lantigua RN 10/02/[address] [facility] 10-02-2023 Emergency department Note This RN went to evaluate patient, was on 2L o2 and does not wear at baseline, plan is dc, this RN turned o2 off to trial patient, spo2 monitor on Mami Lantigua RN 10/02/[address] [facility] 10-02-2023 Emergency department Note Pt to ct via cart Eloisa Alfaro RN 10/02/[address] [facility] 10-02-2023 Emergency department Triage note Pt was brought in via [facility] from [facility] for Left sided facial droop. Per EMS nurse is new and does not know patient very well but he is A&O x 2 at baseline. Per EMS the nurse states it was 20 mins ago. 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 EMS [...] facility. Hx of schizophrenia. BS 131. T [facility] 10-02-2023 Physician Emergency department Note Emergency Department Encounter [facility] ED Patient: Kathya Hooper : 1955 Date of Evaluation: 10/02/2023 ED Supervising Physician: Fei Farooq MD I personally saw Ktahya Hooper and made/approved the management plan and [...] [employer] Fei Farooq MD 10/02/23 1129 [employer] Work Phone: 05-20-2022 Emergency department Note Report called to [facility]. Copy of Xray report sent with discharge packet Gary Ghosh RN 05/20/222007 [facility] 05-20-2022 Emergency department Note Report called to [facility]. Copy of Xray report sent with discharge packet Gary Ghosh RN 05/20/222007 Emergency Department Encounter [facility] ED Patient: Kathya Hooper : 1955 Date of Evaluation: 05/20/2022 ED Supervising Physician: Abelardo Rios DO I independently examined and evaluated Kathya Hooper. This will serve as my Supervisory note as the sales promotion director of record and shared attestation. I did perform a substantive portion of the visit including all aspects of the Medical Decision Making. I wore appropriate PPE for the entirety of this encounter. In brief, Kathya Hooper is a 67 y.o. male that presents to the emergency department after his G-tube fell out today at the [facility]. Upon inspection of the G-tube, it appears [...] tube which fell out today at the [facility]. Tube was easily replaced in the emergency room. Will order KUB with dye study to confirm placement and discharge back to the [facility]. X-ray confirms due to position within the [...] for clarification.) Abelardo Rios DO Acute Care [facility] Abelardo Rios DO 05/20/222014 documented in this encounter [facility] 05-20-2022 Miscellaneous Notes Associated Order(s): Feeding Tube Replacement Procedure Feeding Tube Replacement Performed by: Dejah Hazel DO Authorized by: Abelardo Rios DO Consent: Consent obtained: Verbal Consent given by: Patient [place] protocol: Patient identity confirmed: Verbally with patient [...] DO Resident 05/20/221931 documented in this encounter [facility] 05-20-2022 Note Associated Order(s): Feeding Tube Replacement Procedure Feeding Tube Replacement Performed by: Dejah Hazel DO Authorized by: Abelardo Rios DO Consent: Consent obtained: Verbal Consent given by: Patient [place] protocol: Patient identity confirmed: Verbally with patient [...] no immediate complications DO Brandon Otoole 05/20/221931 [employer] Phone: 05-20-2022 Note Associated Order(s): Feeding Tube Replacement Procedure Feeding Tube Replacement Performed by: Dejah Hazel DO Authorized by: Abelardo Rios DO Consent: Consent obtained: Verbal Consent given by: Patient [place] protocol: Patient identity confirmed: Verbally with patient [...] immediate complications Dejah Hazel DO Resident 05/20/221931 [employer] Phone: 05-20-2022 Physician Emergency department Note Emergency Department Encounter [facility] ED Patient: Kathya Hooper : 1955 Date of Evaluation: 05/20/2022 ED Supervising Physician: Abelardo Rios DO I independently examined and evaluated Kathya Hooper. This will serve as my Supervisory note as the sales promotion director of record and shared attestation. I did perform a substantive portion of the visit including all aspects of the Medical Decision Making. I wore appropriate PPE for the entirety of this encounter. In brief, Kathya Hooper is a 67 y.o. male that presents to the emergency department after his G-[facility]. Upon inspection of the G-tube, it appears [...] tube which fell out today at the [facility]. Tube was easily replaced in the emergency room. Will order KUB with dye study to confirm placement and discharge back to the [facility]. X-ray confirms due to position within the [...] [facility] [employer] Abelardo Rios DO 05/20/222014 [employer] Work Phone: 03-24-2021 Note Hospitalist Discharg e [...] 03/18/2021 [facility]: [id number] Computed Tomography ACCESSION EXAM DATE/TIME PROCEDURE ORDERING PROVIDER [id number] 03/18/2021 16:26 EST CTA Head/Neck w/ + w/o [id number] alyson ARCHIBALD CPT code 43157 32024 Q9967 Reason For Exam (CTA Head/Neck w/ + w/o contrast) AMS, dysphasia and ?aphasia possibly since yesterday- very poor historian from [facility] w/ unclear prior deficits - here w/ [...] airway at the (more content not included)... [facility] 03-24-2021 Hospital course Narrative Hospitalist Discharge Summary [...] Tomography ACCESSION EXAM DATE/TIME PROCEDURE ORDERING PROVIDER [id number] 03/18/2021 16:26 EST CTA Head/Neck w/ + w/o 687129 alyson ARCHIBALD CPT code 64856 60751 Q9967 Reason For Exam (CTA Head/Neck w/ + w/o contrast) AMS, dysphasia and ?aphasia possibly since yesterday- very poor historian from [facility] w/ unclear prior deficits - here w/ [...] Tomography ACCESSION EXAM DATE/TIME PROCEDURE ORDERING PROVIDER [id number] 03/18/2021 16:27 EST CTA Chest w/ + w/o [id number] -CASTRO, Contrast BOO CPT code 02541 Q9967 Reason For Exam (CTA Chest w/ + w/o Contrast) pulmonary embolus Report CTA chest with and without contrast History: chest pain Protocol: 1 mm images after IV contrast, 3D rendering performed by mn on a separate workstation No evidence of [...] Radiology ACCESSION EXAM DATE/TIME PROCEDURE ORDERING PROVIDER [id number] 03/19/2021 17:10 EST CR Chest Portable [id number] -BRADY DESAI CPT code 82357 Reason For Exam (CR Chest Portable) hypoxia [...] Result Date: 03/18/2021 Patient Name: KATHYA HOOPER [facility]#: [id number] Diagnostic Radiology ACCESSION EXAM DATE/TIME PROCEDURE ORDERING PROVIDER [id number] 03/18/2021 15:30 EST CR Chest Portable [id number] -BOO CASTRO CPT code 66902 Reason For Exam (CR Chest Portable) sob, [...] on file. Discharging Nurse: Discharging Hospital Unit/Room#: 719/0136 Discharging Unit Phone Number: Emergency Contact: Extended Emergency Contact Information Primary Emergency Contact: Jason Hooper [facility] Relation: Parent Past Surgical History: Past Surgical History: Procedure Laterality Date CERVICAL FUSION 07/09/2014 C2-6 cervical fusion GASTROSTOMY TUBE PLACEMENT 07/13/2018 TRACHEOSTOMY 07/13/2018 Immunization History: Immunization History Administered Date(s) Administered Pneumococcal Polysaccharide (Glfvubaad97) 01/10/2017 Tdap (Boostrix, Adacel) 01/10/2017 Active Problems: Patient Active Problem List Diagnosis Code Closed fracture dislocation of cervical spine ([facility]) S12.9XXA Traumatic nondisp spondylolisthesis of C3 vertebra with closed fx, initial encounter ([facility]) S12.231A Closed wedge compression fracture of first thoracic vertebra ([facility]) S22.010A Central cord syndrome ([facility]) S14.129A Chronic latent schizophrenia ([facility]) F21 Alcohol abuse F10.10 Respiratory failure after trauma ([facility]) J96.90 Vitamin D insufficiency E55.9 Vertebral artery occlusion, 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 Hypokalemia E87.6 Ileus ([facility]) K56.7 TREVER (acute kidney injury) ([facility]) N17.9 Acute respiratory failure with hypoxia ([facility]) J96.01 Hospital-acquired pneumonia J18.9, Y95 Bilateral pleural effusion J90 Mild bibasilar atelectasis J98.11 Urinary retention R33.9 Prolonged Q-T interval on ECG R94.31 Pressure ulcer of sacral region, stage [address] ([facility]) L89.152 Abdominal wall abscess L02.211 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[facility]) K65.4 Hypoxia R09.02 Respiratory syncytial virus [...] MENTAL STATUS:} IV Access: { CHRIS IV ACCESS:520972033} Nursing Mobility/ADLs: Walking {CHP DME ADLs:572905936} Transfer {P DME ADLs:269242268} Bathing {P DME ADLs:643573964} Dressing {CHP DME ADLs:633066711} Toileting {P DME ADLs:808152781} Feeding {P DME ADLs:729649487} Network/Telecom Engineer {P DME ADLs:701498276} Med Delivery { CHRIS MED Delivery:984647545} Wound Care Documentation and Therapy: Negative Pressure Wound Therapy Abdomen Left (Active) Number of days: 947 Wound Sacrum Mid (Active) Number of days: Elimination: Continence: Bowel: {YES / NO:} Bladder: {YES / NO:} Urinary Catheter: {Urinary Catheter:142114049} Colostomy/Ileostomy/Ileal Conduit: {YES / NO:} Date of Last BM: No intake or output data in the 24 hours ending 03/24/21 1013 I/O last 3 completed shifts: In: 660 [NG/GT:660] Out: - Safety Concerns: { CHRIS Safety Concerns:351482110} Impairments/Disabilities: { CHRIS Impairments/Disabilities:63725059 3} Nutrition Therapy: Current Nutrition Therapy: { CHRIS Diet List:250871729} Routes of Feeding: {[facility] DME Other Feedings:248501257} Liquids: {[facility] liquid thickness:98059} Daily Fluid Restriction: {[facility] DME Yes amt example:775752924} Last Modified Barium Swallow with Video (Video Swallowing Test): {Done Not Done Date:162164759} Treatments at the Time of Hospital Discharge: Respiratory Treatments: Oxygen Therapy: {Therapy; copd oxygen:86599} Ventilator: {[facility] Vent List:552582411} Rehab Therapies: {THERAPEUTIC INTERVENTION:8233376890} Weight Bearing Status/Restrictions: {[facility] Weight Bearin} Other Medical Equipment (for information only, NOT a DME order): {EQUIPMENT:351789704} Other Treatments: Patient's personal belongings (please select all that are sent with patient): {[facility] DME Belongings:430630235} RN SIGNATURE: {Esignature:900788242} CASE MANAGEMENT/SOCIAL WORK SECTION Inpatient Status Date: Readmission Risk Assessment Score: Readmission Risk Risk of Unplanned Readmission: 25 Discharging to Facility/ Agency Name: [facility] Address: [address] [facility] [address] Dialysis Facility (if applicable) Name: Address: Dialysis Schedule: Phone: Fax: Precision Layout Worker/Fusion Juncture Grinder signature: PHYSICIAN SECTION Prognosis: Good Condition at Discharge: Stable Rehab Potential (if transferring to Rehab): Good Recommended Labs or Other Treatments After Discharge: Physician Certification: I certify the above information and transfer of Kathya Hooper is necessary for the continuing treatment of the diagnosis listed and that he requires Assisted Facility for greater 30 days. Update Admission [...] loss Fluid Accumulation: No significant fluid accumulation Sales Clerk Strength: Not Performed Estimated Daily Nutrient Needs: Energy (kcal): 8806-1773 (25-30 kcal/kg IBW); Weight Used for Energy Requirements: [place] (86.2 kg) Protein (g): 86-103 (1.0-1.2 g protein/kg IBW); Weight Used for Protein Requirements: [place] (86.2 kg) Fluid (ml/day): per MD. At [...] on 03/02/21, October weight= 185.5# on 01/29/21) [place] Body Weight: 190 lbs; % [place] Body Weight 97.8 % BMI: 24 Adjusted [...] Skin, Weight Discharge Planning: Enteral Nutrition Contact: *[phone] Images from the original note were not included. Hospitalist Progress Note 03/23/2021 9:27 AM Subjective: Admit Date: 03/19/2021 PCP: No primary care provider on file. Room#: 465/4657 Patient seen and examined. Laying in bed. [...] from the original note were not included. [facility] [place] [address] [place] [address] Patient - Kathya Hooper, Age - 66 [...] of bed. Pt thought there was a copywriting intern in the corner of his room. When pt got his meds he calmed down. Pt now watching tv. Call light within reach. Bed alarm on. Images from the original note were not included. [facility] [place] [facility] [place] [address] [place] [address] Patient - Kathya Hooper, Age - 66 y.o. - 1955 Room Number - [facility]/3656 Consulting - Rafa Michel MD Primary Care Physician - No primary care provider on file. [facility] [id number] Date of Admission - 03/19/2021 3:52 PM [...] 66 y.o. - 1955 Room Number - [id number] [facility] - [id number] Date of Admission - 03/19/2021 3:52 PM [...] Date 03/21/21 0000 - 03/21/21 235 Shift [id number] 1813-0461 6226-2374 24 Hour Total INTAKE NG/GT(mL/kg) 542(6.4) 542(6.4) [...] included. Hospitalist Progress Note 03/21/2021 9:41 AM [phone]: Please page me for patient care issues. [phone]: Please page [facility] night Hospitalist for any issues. Subjective: Admit Date: 03/19/2021 PCP: No primary care provider on file. Room#: 465/4653 Interval History: Lethargic, hard to arouse this [...] PEG 07/13/2018. [facility] from [facility] to [facility] ED with worsening SOB. Evaluated in [...] loss Fluid Accumulation: No significant fluid accumulation Sales Clerk Strength: Not Performed Estimated Daily Nutrient Needs: Energy (kcal): 9523-8250 (25-30 kcal/kg IBW); Weight Used for Energy Requirements: [place] (86.2 kg) Protein (g): 86-103 (1.0-1.2 g protein/kg IBW); Weight Used for Protein Requirements: [place] (86.2 kg) Fluid (ml/day): per MD. At facility receivin mL free water daily from EN and flushes; Method Used for Fluid Requirements: Other (Comment) Nutrition Related Findings: Massimo score= 15. No skin breakdown or edema noted. S/p Trach/PEG, per BAFFLE MOUNTER note, does not take any food, drink [...] on 03/02/21, October weight= 185.5# on 01/29/21) [place] Body Weight: 190 lbs; % [place] Body Weight 97.8 % BMI: 23.9 BMI [...] Nutrition Contact: 2430 Speech Language Pathology Facility/Department: [facility] TELEMETRY CLINICAL BEDSIDE SWALLOW EVALUATION NAME: [...] states that she is the only family [phone] Images from the original note were not included. Hospitalist Progress Note 03/20/2021 9:58 AM [phone]: Please page me for patient care issues. [phone]: Please page [facility] night Hospitalist for any issues. Subjective: [...] Narrative NIF -20 documented in this encounter [facility] Work Phone: 03-18-2021 Hospital Discharg Boo Stringer MD - 03/18/2021 Mr. Hooper was seen at the [facility] emergency department for low oxygen levels. Patient [...] cannot be sent through Care Everywhere.Viral Infections ([place]atemalan)documented in this encounter [facility] Work Phone: Evaluation note Diagnosis PEG tube malfunction (HCC)- Primary Mechanical complication of gastrostomy documented in this encounter [facility] Work Phone: Evaluation note* Diagnosis Feeding tube dysfunction, initial encounter- Primary documented in this encounter [facility] Work Phone: Evaluation note* Diagnosis Respiratory syncytial virus (RSV)- Primary Hypoxia Hypoxemia documented in this encounter [facility] Work Phone: Evaluation note* Diagnosis Respiratory syncytial virus (RSV)- Primary Hypoxia Hypoxemia documented in this encounter [facility] Work Phone: Evaluation note* Diagnosis PEG tube malfunction (HCC)- Primary Mechanical complication of gastrostomy [facility]: [facility]* Diagnosis Contusion of right hip, initial encounter- Primary documented in this encounter [facility] Work Phone: Evaluation noteNo assessment information available [facility] Work Phone: Evaluation note* Diagnosis Dyspnea, unspecified type- Primary [facility] Diagnosis Dysphagia, oropharyngeal phase Feeding difficulties Feeding difficulties and mismanagement [facility] Diagnosis Dysphagia, oropharyngeal phase- Primary Feeding difficulties Feeding difficulties and mismanagement Dysphagia, oropharyngeal phase Feeding difficulties Feeding difficulties and mismanagement [facility] Diagnosis Dislodged gastrostomy tube- Primary [facility] Diagnosis Chronic cough Cough [facility]* Diagnosis Chronic cough- Primary Cough Chronic cough Cough [facility] Attachments The following attachments cannot be sent through Care Everywhere. * PEG (Percutaneous Endoscopic Gastrostomy): Post-op ([place]) documented in this [facility] Work Phone: Hospital Discharge instructions* Attachments The following attachments cannot be sent through Care Everywhere. * Feeding Tube: General Info ([place]atemalan) documented in this [facility]* Instructions* Mary Cochran PA-C - 05/15/2021 Please return to the ED if you have any new or worsening symptoms. documented in this [facility] Work Phone: Hospital Discharge instructions* Attachments The following attachments cannot be sent through Care Everywhere. * Hip Pain (Guatemalan) * Contusion (Guatemalan) documented in this [facility] Work Phone: Hospital Discharge instructions* Attachments The following attachments cannot be sent through Care Everywhere. * Shortness of Breath (Dyspnea) Discharge Instructions ([place]) [facility] Attachments The following attachments cannot be sent through Care Everywhere. * How to Care for Your Gastrostomy Tube ([place]) [facility] (narrative)No reason for referral information availableWPremier [facility] Work Phone: Reason for visit Narrative* Imaging (Routine) - Closed Specialty Diagnoses / Procedures Referred By Contlang t Referred To Contact Radiology Diagnoses Chronic cough Procedures CT chest wo IV contrast Rashaad Smith APRN - [employer] [address] [address] Phone: tel: fax: Referral ID Status Reason Start Date Expiration Date Visits Re quested Visits Authorized [id number] Closed 06/12/2024 06/12/2025 1 1 [facility] Summary Purpose Family History No Family History Records FoundNo Family History Records FoundThere may be information available, but it has not been provided by the sender.No Family History Records FoundNo Family History Records FoundNo Family History Records FoundNo Family History Records Found Advance Directives No Advanced Directives Records FoundDocuments on File Type Date Recorded Patient Medical Esthetician Expl anation ACP-Advance Directive ACP-Advance Directive 08/07/2018 1:53 PM ACP-Power of Gift Shop Manager Latest Code Status on File Code Status Date Activated Date Inactivated Comments Full Code 08/15/2018 8:27 PM 08/22/2018 4:31 PM Full Code 08/15/2018 8:12 PM 08/15/2018 8:27 PM Full Code 07/08/2018 8:28 PM 08/01/2018 2:39 PM Documents on File Type Date Recorded Patient Medical Esthetician Expl anation ACP-Advance Directive ACP-Power of Gift Shop Manager ACP-Advance Directive 08/07/2018 1:53 PM Latest Code Status on File Code Status Date Activated Date Inactivated Comments Full Code 03/20/2021 12:17 AM Full Code 08/15/2018 8:27 PM 08/22/2018 4:31 PM Documents on File Type Date Recorded Patient Medical Esthetician Expl anation ACP-Advance Directive ACP-Power of Gift Shop Manager ACP-Advance Directive 03/26/2021 9:48 AM ACP-Advance Directive 08/07/2018 1:53 PM Latest Code Status on File Code Status Date Activated Date Inactivated Comments Full Code 03/20/2021 12:17 AM 03/24/2021 3:23 PM Documents on File Type Date Recorded Patient Medical Esthetician Expl anation Advance Directives and Livin g Will Advance Directives and Livin g Will 08/07/2018 1:53 PM Power of Gift Shop Manager Documents on File Type Date Recorded Patient Medical Esthetician Expl anation Advance Directives and Livin g Will 05/23/2022 10:48 AM Advance Directives and Livin g Will 03/19/2021 Documents on File Type Date Recorded Patient Medical Esthetician Expl anation Advance Directives and Living Will 03/19/2021 Documents on File Type Date Recorded Patient Medical Esthetician Expl 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 * Feeding Tube: General Info (Guatemalan) documented in this encounter Assessments Diagnosis PEG [...] WORK LABWORK JAIL LABWORK JAIL LAB WORK LABWORK\\ Chief Complaint LABWORK JAIL LABWORK LABWORK JAIL LAB WORK JAIL LAB WORK JAIL LABWORK JAIL LABWORK JAIL LAB WORK JAIL LAB WORK JAIL LABWORK LABWORK JAIL LAB WORK LABWORK JAIL LABWORK JAIL LAB WORK LABWORK\\ LABWORK Chief Complaint JAIL LAB WOR K JAIL LAB WORK JAIL LABWORK JAIL LABWORK JAIL LAB WORK JAIL LAB WORK JAIL LABWORK LABWORK JAIL LAB WORK LABWORK JAIL LABWORK JAIL LAB WORK LABWORK\\ LABWORK JAIL LAB WORK LABWORK Chief Complaint JAIL LAB WOR K JAIL LABWORK JAIL LABWORK JAIL LAB WORK JAIL LAB WORK JAIL LABWORK LABWORK JAIL LAB WORK LABWORK JAIL LABWORK JAIL LAB WORK LABWORK\\ LABWORK JAIL LAB WORK LABWORK LABWORK Chief Complaint JAIL LABWORK JAIL LABWORK JAIL LAB WORK JAIL LAB WORK JAIL LABWORK LABWORK JAIL LAB WORK LABWORK JAIL LABWORK JAIL LAB WORK LABWORK\\ LABWORK JAIL LAB WORK LABWORK JAIL LABWORK LABWORK Chief Complaint JAIL LAB WOR K JAIL LABWORK LABWORK JAIL LAB WORK LABWORK JAIL LABWORK JAIL LAB WORK LABWORK\\ LABWORK JAIL LAB WORK LABWORK JAIL LABWORK LABWORK JAIL LABWORK JAIL LAB WORK LABWORK JAIL LAB WORK Chief Complaint JAIL LABWORK LABWORK JAIL LAB WORK LABWORK JAIL LABWORK JAIL LAB WORK LABWORK\\ LABWORK JAIL LAB WORK LABWORK JAIL LABWORK LABWORK JAIL LABWORK JAIL LAB WORK LABWORK JAIL LAB WORK LABWORK Chief Complaint JAIL LAB WOR K LABWORK JAIL LABWORK JAIL LAB WORK LABWORK\\ LABWORK JAIL LAB WORK LABWORK JAIL LABWORK LABWORK JAIL LABWORK JAIL LAB WORK LABWORK JAIL LAB WORK LABWORK LABWORK Chief Complaint JAIL LAB WOR K LABWORK\\ LABWORK JAIL LAB WORK LABWORK JAIL LABWORK LABWORK JAIL LABWORK JAIL LAB WORK LABWORK JAIL LAB WORK LABWORK LABWORK LABWORK LABWORK LABWORK Chief Complaint LABWORK\\ LABWORK JAIL LAB WORK LABWORK JAIL LABWORK [...] WORK LABWORK JAIL LABWORK JAIL LAB WORK LABWORK\\ LABWORK JAIL LAB WORK LABWORK JAIL LABWORK LABWORK JAIL LABWORK Chief Complaint JAIL LABWORK JAIL LAB WORK JAIL LAB WORK JAIL LABWORK LABWORK JAIL LAB WORK LABWORK JAIL LABWORK JAIL LAB WORK LABWORK\\ LABWORK JAIL LAB WORK LABWORK JAIL LABWORK [...] Date LABWORK October 28, 2024 5:00 am [facility]AIL LAB WORK November 04, 2024 4:0 0am [facility] WORK November 11, 2024 5: 00am [facility] WORK November 18, 2024 5: 00am LABWORK November 25, 2024 5:00 am [facility] LAB WORK December 02, 2024 5 :00am J[facility] LAB WORK December 09, 2024 4:00am JAIL LAB WORK December 16, 2024 4:00am LABOWRK December 23, 2024 5: 00am JAIL LAB WORK December 31 5:00am JAIL LAB WORK January 06 4:00am JAIL LAB WORK January 10 5:00am LABWORK January 13, 2025 5:00am JAIL LAB WORK January 20 4:00am JAIL LAB WORK January 27 4:00am JAIL LAB WORK February 03, 2025 5:00am [facility] LAB WORK February 10, 2025 4:00am Additional Source Comments (unrecognized sect ion and content) No Status Records FoundNo Status Records FoundNo Status Records FoundNo Status Records FoundNo Status Records FoundNo Status Records Found INFORMATION SOURCE (unrecogn ized section and content) DATE CREATED AUTHOR 09/04/2018 [facility] DATE CREATED AUTHOR AUTHOR'S ORGANIZ ATION 10/06/2018 [facility] DATE CREATED AUTHOR AUTHOR'S ORGANIZ ATION 03/26/2021 [facility] DATE CREATED AUTHOR AUTHOR'S ORGANIZ ATION 05/21/2021 [facility] DATE CREATED AUTHOR AUTHOR'S ORGANIZ ATION 06/28/2024 [facility] DATE CREATED AUTHOR AUTHOR'S ORGANIZ ATION 03/12/2025 [facility] Source Comments (unrecognize d section and content) In the event this informatio n is protected by the Federal Confidentiality of Alcohol and Drug Abuse Patient Records regulations: The Federal rules restrict any use of the information to criminally investigate or prosecute any alcohol or drug abuse patient.[facility] Reason for Visit (unrecogniz ed section [...] at 0900 0754 (Given - Provider: Tra Peral RN) 0914 (Given - Provider: Jovana Armstrong [...] Solorio RN)2244 (New Bag - Provider: Nancy Soloroi RN) 0401 (Stopped - Provider: Nancy Solorio [...] 1200 0953 (Given - Provider: Amelie Taylor [facility])1356 (Given - Provider: Amelie Taylor [employer]ILROAD CONSTRUCTION DIRECTOR)1648 (Given - Provider: Amelie Taylor RAILROAD CONSTRUCTION DIRECTOR)2212 (Given - Provider: Claire Lagos [facility]) 0841 (Given - Provider: Ana Cabrera [facility])1213 (Given - Provider: Ana Cabrera RAILROAD CONSTRUCTION DIRECTOR)1622 (Given - Provider: Ana Cabrera RAILROAD CONSTRUCTION DIRECTOR)2037 (Given - Provider: Perla Loyola [facility]) 1020 (Given - Provider: Gabriel Soares [facility])1200 (Due)1600 (Due)2000 (Due) lansoprazole (PREVACID [...] Jovana Armstrong, KUSHAL) 0245 (Given - Provider: Nacny Solorio, KUSHAL) predniSONE (DELTASONE) tablet 40 mg [...] 2323 1003 (Given - Provider: Amelie Taylor RAILROAD CONSTRUCTION DIRECTOR)2215 (Given - Provider: Claire Lagos RAILROAD CONSTRUCTION DIRECTOR) 0841 (Given - Provider: Ana Cabrera [facility])205 (Given - Provider: Perla Loyola RAILROAD CONSTRUCTION DIRECTOR) 1200 (Due - Provider: Gabriel Soares RAILROAD CONSTRUCTION DIRECTOR)2100 (Due) sodium chloride flush 0.9 % injection [...] Status Dates Renard Burgos Attending Provider Active Pants Maker Relationship Specialty Start Date End Date Renard Burgos [address] [place] [phone] PCP - General Internal Medicine 10/16/23 Pants Maker Relationship Specialty Start Date End Date Renard Burgos [address] [place] [phone] PCP - General Internal Medicine 10/16/23 Pants Maker Relationship Specialty Start Date End Date Renard Burgos [address] [place] [address] PCP - General Internal Medicine 10/16/23 Pants Maker Relationship Specialty Start Date End Date Renard Burgos [address] [place] [address] PCP - General Internal Medicine 10/16/23 Team [...] Provider Active Sta rt: September 09, 2024 Pants Maker Relationship Specialty Start Date End Date Renard Burgos [address] [facility] [address] [place] [phone] PCP - General Internal Medicine [...] Team Status: Inactive Member Role Status Dates Rneard GARLAND Attending Provider Active Sta rt: September [...] Team Status: Inactive Member Role/Relationship Status Dates Renadr GARLAND Attending Provider Active Sta rt: July [...] BE BASED ON THE PRIMARY CLINICAL RECORDS. [facility] [employer] [facility]. provides no warranty or guarantee of the accuracy or completeness of information in this document.
[2025-03-24 08:15] LABS: Hematocrit 40.1 % (40-54); Hemoglobin 13.3 g/dL (13.0-16.5); Immature Granulocytes Count 0.030 X10^3/uL (0.0-0.0); Mean Corp Hgb Conc 33.2 g/dL (32-36); Mean Corpuscular Volume 91.8 fL (80-94); Mean Platelet Vol. 11.3 fl (6.2-12.0); NRBC Flagged by Analyzer 0 % (0-5); Platelet Count 207 K/mm3 (150-450); RBC Distribution Width CV 13.1 % (11.6-14.6); RBC Distribution Width SD 43.3 fl (35.1-43.9); Red Blood Count 4.37 M/mm3 (4.6-6.2); White Blood Count 8.0 K/mm3 (4.4-11.0)
== END ==
LOC: OLS.SANC 05:00
PROVIDERS: Visit Provider Internal Medicine
DX: N40.0 Benign prostatic hyperplasia without lower urinary tract symptoms (principal)
CPT/HCPCS: 36415; 85025

== ENCOUNTER → 2025-03-31 04:00 | Outpatient (REF) | payer MEDICAID, SELFPAY ==
[2025-03-31 08:29] LABS: Hematocrit 41.8 % (40-54); Hemoglobin 13.9 g/dL (13.0-16.5); Immature Granulocytes Count 0.020 X10^3/uL (0.0-0.0); Mean Corp Hgb Conc 33.3 g/dL (32-36); Mean Corpuscular Volume 90.3 fL (80-94); Mean Platelet Vol. 11.0 fl (6.2-12.0); NRBC Flagged by Analyzer 0 % (0-5); Platelet Count 225 K/mm3 (150-450); RBC Distribution Width CV 12.9 % (11.6-14.6); RBC Distribution Width SD 42.0 fl (35.1-43.9); Red Blood Count 4.63 M/mm3 (4.6-6.2); White Blood Count 8.1 K/mm3 (4.4-11.0)
== END ==
LOC: OLS.SANC 04:00
PROVIDERS: Referring Provider Internal Medicine; Visit Provider Internal Medicine
DX: Z79.899 Other long term (current) drug therapy (principal)
CPT/HCPCS: 36415; 85025

== ENCOUNTER → 2025-04-07 | Outpatient (REF) | payer MEDICAID, SELFPAY ==
[2025-04-07 08:41] LABS: Hematocrit 40.1 % (40-54); Hemoglobin 13.3 g/dL (13.0-16.5); Immature Granulocytes Count 0.020 X10^3/uL (0.0-0.0); Mean Corp Hgb Conc 33.2 g/dL (32-36); Mean Corpuscular Volume 91.1 fL (80-94); Mean Platelet Vol. 11.1 fl (6.2-12.0); NRBC Flagged by Analyzer 0 % (0-5); Platelet Count 194 K/mm3 (150-450); RBC Distribution Width CV 12.7 % (11.6-14.6); RBC Distribution Width SD 42.4 fl (35.1-43.9); Red Blood Count 4.40 M/mm3 (4.6-6.2); White Blood Count 7.4 K/mm3 (4.4-11.0)
[2025-04-07 09:00] LABS: Anion Gap 7 (5-15); BUN 15 mg/dL (4-19); BUN/Creat Ratio 23.7 RATIO (10-20); Calcium,Total 8.5 mg/dL (7.6-11.0); Carbon Dioxide 29.4 mmol/L (21.0-32.0); Chloride 105 mmol/L (98-108); Glucose 129 mg/dL (70-99); Potassium 3.9 mmol/L (3.3-5.1)
== END | disposition home or self-care (01) ==
LOC: OLS.SANC 05:00
PROVIDERS: Visit Provider Internal Medicine
DX: N40.0 Benign prostatic hyperplasia without lower urinary tract symptoms (principal); K21.00 Gastro-esophageal reflux disease with esophagitis, without bleeding
CPT/HCPCS: 36415; 80048; 85025

== ENCOUNTER → 2025-04-14 05:00 | Outpatient (REF) | payer MEDICAID, SELFPAY ==
--- OUTSIDE RECORDS SUMMARY | 2025-04-14 04:31 | XMS RPT_ITS | CCD ---
Author Organization [facility] Care Team Providers [facility] Associate Name Role Phone JORDAN OREILLY Attending Unavailable PROVIDER, UNKNOWN Referring Unavailable Nathanael Cazares Primary Care Unavailable PROVIDER, UNKNOWN Referring Unavailable Nathanael Cazares Primary Care Unavailable Jaime Lindquist Attending Unavailable Unavailable Primary Care Provider UnavailBethany Navarrete Primary Care Provider [phone] Jarvis Kendall MD Unavailable [phone] Bethany Russell MD Primary Care Provider [phone] Unavailable Primary Care Provider Unavailclifton Latif MD, Jenn Edwin Primary Care Provider [phone] Unavailable Primary Care Provider UnavailRenard Mccann Primary [...] tablet via peg tube as needed ACETAMINOPHEN [id number] Ana Stevenson [facility] albuterol 0.83 mg/ml inhalation solution (1 source) beta2-Adrenergic Agonist Start: 03-19-2021 albut veronica (PROVENTIL) nebulizer solution 2.5 mg albuterol 0.833 mg/ml / ipratropium bromide 0.167 mg/ml inhalation solution (18 sources) Anticholinergic, beta2-Adrenergic Agonist Start: 03-20-2021 ipratropium-alb utero l (DUONEB) nebulizer solution 1 ampule Start: 05-22-2019 IPRATROPIUM-AL BUTEROL 0.5-2.5 (3) MG/3ML SOLN 3ml via nebulizer every 4 hours as needed IPRATROPIUM-ALBUTEROL [id number] Ana Diesch [employer] Start: 08-22-2018 take 3 mL by inhalat ion every four hours ipratropium-albuterol (DUONEB) 0.5-2.5 (3) MG/3ML SOLN nebulizer solution Inhale 3 mLs into the lungs every 4 hours 360 mL 0 08/22/2018 Active aspirin 81 mg chewable tablet (9 sources) Platelet Aggregation Inhibitor, Nonsteroidal Anti-inflammatory Drug Start: 05-22-2019 ASPIRIN ADULT LOW STRENGTH 81 MG CHEW one tablet via peg tube daily ASPIRIN [id number] Ana Stevenson [facility] Start: 08-23-2018 aspirin 81 MG chewable tablet 1 tablet by Per NG tube route daily 30 tablet 3 08/23/2018 Active atorvastatin 40 mg oral tablet (9 sources) HMG-CoA Reductase Inhibitor Start: 05-22-2019 ATORVASTATIN CALCIUM 40 MG TABS one tablet via peg tube daily ATORVASTATIN CALCIUM [id number] [facility] Start: 08-22-2018 atorvastatin ( LIPITOR) 40 MG tablet 1 tablet by Per NG tube route nightly 30 tablet 3 08/22/2018 Active castor oil 0.788 mg/mg / fijian balsam 0.087 mg/mg topical ointment (7 sources) Standardized Chemical Allergen Start: 08-22-2018 Balsam Froilan-Drifton O il (VENELEX) OINT ointment Apply topically [...] 250mg via peg tube twice daily CLOZAPINE [id number] [facility] Start: 08-22-2018 cloZAPine (AILYN ZARIL) 100 [...] via peg tube twice daily DOCUSATE SODIUM [id number] [facility] Start: 08-22-2018 docusate (COLA CE) 50 MG/5ML liquid 10 mLs by Per NG tube route 2 times daily 0 08/22/2018 Active take [address] [facility] twice daily docusate sodium (Colace) [...] one tablet via peg tube nightly MELATONIN [id number] [facility] Start: 08-22-2018 melatonin 3 MG TABS [...] needed. 0 08/23/2018 Active polyethylene glycol 3350 89451 mg powder for oral solution (1 source) [...] Sig (Normalized) Sig (Original) barium sulfate (Varibar [place], Varibar Honey) 40 % suspension 5 mL [...] SUPP every 24 hours as needed BISACODYL [id number] Ana Stevenson [employer] Start: 05-22-2019 BISACODYL EC 5 MG TBEC one tablet via peg tube daily as needed BISACODYL [id number] Ana Stevenson [employer] chlorhexidine gluconate 1.2 mg/ml mouthwash (10 sources) Start: 05-22-2019 PERIDEX 0.12 % SOLN 15ml twice daily CHLORHEXIDINE GLUCONATE [id number] Ana Stevenson LPN chlorhexidine (P eridex) 0.12 % solution Use 15 mL in the mouth or throat if needed for wound care. Active cholecalciferol 1000 unt oral tablet (16 sources) Vitamin D Start: 05-22-2019 VITAMIN D3 25 MCG (1000 UT) TABS one tablet via peg tube daily CHOLECALCIFEROL [id number] Ana Stevenson LPN cholecalciferol (SM Vitamin D3) 25 MCG (1000 UT) tablet Take 1,000 Units by mouth daily. Active dextromethorphan hydrobromide 2 mg/ml / guaiFENesin 20 mg/ml oral solution (1 source) Uncompetitive I-tezkwb-W-aspartate Receptor Antagonist, Sigma-1 Agonist Start: 05-22-2019 ROBITUSSIN PEAK COLD DM SYRP 5ml via peg tube every 4 hours as needed for cough DEXTROMETHORPHAN-GUAIFENESIN SYRP [id number] Ana Stevenson LPN magnesium hydroxide 240 mg/ml oral suspension (1 source) Start: 05-22-2019 MILK OF MAGNESIA CONCENTRATE SUSP 30ml via peg tube every 24 hours MAGNESIUM HYDROXIDE SUSP [id number] Ana Stevenson LPN methylPREDNISolone 40 mg injection (2 sources) Corticosteroid Start: 03-20-2021 End: 03-24-2021 methylPREDNISolone sodium (SOLU-MEDROL) injection 40 mg MULTIPLE VITAMINS-MINERALS (1 source) Start: 05-22-2019 MENS MULTIVITAMIN TABS one tablet via peg tube daily MULTIPLE VITAMINS-MINERALS [id number] Ana Stevenson LPN POLYETHYLENE GLYCOL 1450 (1 source) Start: 05-22-2019 POLYETHYLENE GLYCOL 1450 POW D 17 grams via peg tube twice daily POLYETHYLENE GLYCOL 1450 [id number] Ana Stevenson LPN SENNOSIDES-DOCUSATE SODIUM (1 source) Start: 05-22-2019 SENNA PLUS 8.6-50 MG TABS on e tablet via peg tube daily SENNOSIDES-DOCUSATE SODIUM [id number] Ana Stevenson LPN 50 ml sodium chloride [...] 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 [place], [place], [address] Absolute Neut 5.9 X10 3/uL Normal 2.0-7.7 [facility] Comment on above: Order Comment: 109-1 Performed By: #### L 100.0100 ####[facility] [address] [place], [address] Basophils/100 WBC (Bld) 0.6 % Normal 0-1 [facility] Comment on above: Order Comment: 109-1 Performed By: #### L 100.0100 ####[facility] [address] [place], [address] Eosinophils/100 WBC (Bld) 1.0 % Normal 0-5 [facility] Comment on above: Order Comment: 109-1 Performed By: #### L 100.0100 ####[facility] [address] [place], [address] Erythrocyte distribution width (RBC) [Ratio] 13.3 % Normal 11.6-14.6 [facility] Comment on above: Order Comment: 109-1 Performed By: #### L 100.0100 ####[facility] [address] [place], [address] Hematocrit (Bld) [Volume fraction] 39.6 % Low 40-54 [facility] Comment on above: Order Comment: 109-1 Performed By: #### L 100.0100 ####[facility] [address] [place], [address] Hemoglobin (Bld) [Mass/Vol] 12.9 g/dL Low 13.0-16.5 [facility] Comment on above: Order Comment: 109-1 Performed By: #### L 100.0100 ####[facility] [address] [place], [address] IG% 0.400 Normal 0.0-0.9 [facility] Comment on above: Order Comment: 109-1 Result Comment: IG% - Immature Granulocytes (promyelocytes, myelocytes andmetamyelocytes) > 1% indicates that a LEFT SHIFT is Present. Performed By: #### L 100.0100 ####[facility] [address] [place], [address] Lymphocytes/100 WBC (Bld) 18.6 % Low 19-41 [facility] Comment on above: Order Comment: 109-1 Performed By: #### L 100.0100 ####[facility] [address] [place], [address] MCH (RBC) [Entitic mass] 30.0 pg Normal 27.0-32.0 [facility] Comment on above: Order Comment: 109-1 Performed By: #### L 100.0100 ####[facility] [address] [place], [address] MCHC (RBC) [Mass/Vol] 32.6 g/dL Normal 32-36 [facility] Comment on above: Order Comment: 109-1 Performed By: #### L 100.0100 ####[facility] [address] [place], [address] MCV (RBC) [Entitic vol] 92.1 fL Normal 80-94 [facility] Comment on above: Order Comment: 109-1 Performed By: #### L 100.0100 ####[facility] [address] [place], [address] Monocytes/100 WBC (Bld) 8.5 % Normal 0-10 [facility] Comment on above: Order Comment: 109-1 Performed By: #### L 100.0100 ####[facility] [address] [place], [address] Neutrophils/100 WBC (Bld) 70.9 % High 47-70 [facility] Comment on above: Order Comment: 109-1 Performed By: #### L 100.0100 ####[facility] [address] [place], [address] Nucleated RBC (Bld) [#/Vol] 0 10*3/uL Normal 0-5 [facility] Comment on above: Order Comment: 109-1 Performed By: #### L 100.0100 ####[facility] [address] [place], [address] Platelet mean volume (Bld) [Entitic vol] 11.3 fL Normal 6.2-12.0 [facility] Comment on above: Order Comment: 109-1 Performed By: #### L 100.0100 ####[facility] [address] [place], [address] Platelets (Bld) [#/Vol] 206 10*3/uL Normal 150-450 [facility] Comment on above: Order Comment: 109-1 Performed By: #### L 100.0100 ####[facility] [address] [place], [address] RBC (Bld) [#/Vol] 4.30 10*6/uL Low 4.6-6.2 [facility] Comment on above: Order Comment: 109-1 Performed By: #### L 100.0100 ####[facility] [address] [place], [address] RDW SD 45.1 fl High 35.1-43.9 [facility] Comment on above: Order Comment: 109-1 Performed By: #### L 100.0100 ####[facility] [address] [place], [address] WBC (Bld) [#/Vol] 8.3 10*3/uL Normal 4.4-11.0 [facility] Comment on above: Order Comment: 109-1 Performed By: #### L 100.0100 ####[facility] [address] [place], [address] CBC W/Diff, Automatedon 11-0 3-2025 Absolute Lymph 2.24 X10 3/uL Normal 0.83-4.51 [facility] Comment on above: Order Comment: 109.1 Performed By: #### L 100.0100 ####[facility] [address] [place], [address] Absolute Neut 5.2 X10 3/uL Normal 2.0-7.7 [facility] Comment on above: Order Comment: 109.1 Performed By: #### L 100.0100 ####[facility] [address] [place], [address] Basophils/100 WBC (Bld) 0.5 % Normal 0-1 [facility] Comment on above: Order Comment: 109.1 Performed By: #### L 100.0100 ####[facility] [address] [place], [address] Eosinophils/100 WBC (Bld) 1.1 % Normal 0-5 [facility] Comment on above: Order Comment: 109.1 Performed By: #### L 100.0100 ####[facility] [address] [place], [address] Erythrocyte distribution width (RBC) [Ratio] 13.4 % Normal 11.6-14.6 [facility] Comment on above: Order Comment: 109.1 Performed By: #### L 100.0100 ####[facility] [address] [place], [address] Hematocrit (Bld) [Volume fraction] 40.9 % Normal 40-54 [facility] Comment on above: Order Comment: 109.1 Performed By: #### L 100.0100 ####[facility] [address] [place], [address] Hemoglobin (Bld) [Mass/Vol] 13.4 g/dL Normal 13.0-16.5 [facility] Comment on above: Order Comment: 109.1 Performed By: #### L 100.0100 ####[facility] [address] [place], [address] IG% 0.400 Normal 0.0-0.9 [facility] Comment on above: Order Comment: 109.1 Result Comment: IG% - Immature Granulocytes (promyelocytes, myelocytes andmetamyelocytes) > 1% indicates that a LEFT SHIFT is Present. Performed By: #### L 100.0100 ####[facility] [address] [place], [address] Lymphocytes/100 WBC (Bld) 27.0 % Normal 19-41 [facility] Comment on above: Order Comment: 109.1 Performed By: #### L 100.0100 ####[facility] [address] [place], [address] MCH (RBC) [Entitic mass] 30.3 pg Normal 27.0-32.0 [facility] Comment on above: Order Comment: 109.1 Performed By: #### L 100.0100 ####[facility] [address] [place], [address] MCHC (RBC) [Mass/Vol] 32.8 g/dL Normal 32-36 [facility] Comment on above: Order Comment: 109.1 Performed By: #### L 100.0100 ####[facility] [address] [place], [address] MCV (RBC) [Entitic vol] 92.5 fL Normal 80-94 [facility] Comment on above: Order Comment: 109.1 Performed By: #### L 100.0100 ####[facility] [address] [place], [address] Monocytes/100 WBC (Bld) 8.7 % Normal 0-10 [facility] Comment on above: Order Comment: 109.1 Performed By: #### L 100.0100 ####[facility] [address] [place], [address] Neutrophils/100 WBC (Bld) 62.3 % Normal 47-70 [facility] Comment on above: Order Comment: 109.1 Performed By: #### L 100.0100 ####[facility] [address] [place], [address] Nucleated RBC (Bld) [#/Vol] 0 10*3/uL Normal 0-5 [facility] Comment on above: Order Comment: 109.1 Performed By: #### L 100.0100 ####[facility] [address] [place], [address] Platelet mean volume (Bld) [Entitic vol] 11.4 fL Normal 6.2-12.0 [facility] Comment on above: Order Comment: 109.1 Performed By: #### L 100.0100 ####[facility] [address] [place], [address] Platelets (Bld) [#/Vol] 197 10*3/uL Normal 150-450 [facility] Comment on above: Order Comment: 109.1 Performed By: #### L 100.0100 ####[facility] [address] [place], [address] RBC (Bld) [#/Vol] 4.42 10*6/uL Low 4.6-6.2 [facility] Comment on above: Order Comment: 109.1 Performed By: #### L 100.0100 ####[facility] [address] [place], [address] RDW SD 45.8 fl High 35.1-43.9 [facility] Comment on above: Order Comment: 109.1 Performed By: #### L 100.0100 ####[facility] [address] [place], [address] WBC (Bld) [#/Vol] 8.3 10*3/uL Normal 4.4-11.0 [facility] Comment on above: Order Comment: 109.1 Performed By: #### L 100.0100 ####[facility] [address] [place], [address] Absolute lymphocyte countOrd ered By: Renard Burgos on 02-24-2025 Lymphocytes Auto (Unsp spec) [#/Vol] 1.98 10*3/uL 0.83-4.51 [facility] Absolute neutrophil countOrd ered By: Renard Burgos on 02-24-2025 Neutrophils (Bld) [#/Vol] 5.4 10*3/uL 2.0-7.7 [facility] Automated lymphocyte count a s percentage of total leukocytesOrdered By: Renard Burgos on 02-24-2025 Lymphocytes/100 WBC Auto (Unsp spec) 24.6 % 19-41 [facility] Basophil percentageOrdered B y: Renard Burgos on 02-24-2025 Basophils/100 WBC (Bld) 0.5 % 0-1 [facility] CBC W/Diff, Automatedon 01-30 Absolute Lymph 1.98 X10 3/uL Normal 0.83-4.51 [facility] Comment on above: Order Comment: 109-1 Performed By: #### L 100.0100 ####[facility] [address] [place], [address] Absolute Neut 5.4 X10 3/uL Normal 2.0-7.7 [facility] Comment on above: Order Comment: 109-1 Performed By: #### L 100.0100 ####[facility] [address] [place], [address] Basophils/100 WBC (Bld) 0.5 % Normal 0-1 [facility] Comment on above: Order Comment: 109-1 Performed By: #### L 100.0100 ####[facility] [address] [place], [address] Eosinophils/100 WBC (Bld) 0.9 % Normal 0-5 [facility] Comment on above: Order Comment: 109-1 Performed By: #### L 100.0100 ####[facility] [address] [place], [address] Erythrocyte distribution width (RBC) [Ratio] 13.3 % Normal 11.6-14.6 [facility] Comment on above: Order Comment: 109-1 Performed By: #### L 100.0100 ####[facility] [address] [place], [address] Hematocrit (Bld) [Volume fraction] 42.2 % Normal 40-54 [facility] Comment on above: Order Comment: 109-1 Performed By: #### L 100.0100 ####[facility] [address] [place], [address] Hemoglobin (Bld) [Mass/Vol] 14.0 g/dL Normal 13.0-16.5 [facility] Comment on above: Order Comment: 109-1 Performed By: #### L 100.0100 ####[facility] [address] [place], [address] IG% 0.200 Normal 0.0-0.9 [facility] Comment on above: Order Comment: 109-1 Result Comment: IG% - Immature Granulocytes (promyelocytes, myelocytes andmetamyelocytes) > 1% indicates that a LEFT SHIFT is Present. Performed By: #### L 100.0100 ####[facility] [address] [place], [address] Lymphocytes/100 WBC (Bld) 24.6 % Normal 19-41 [facility] Comment on above: Order Comment: 109-1 Performed By: #### L 100.0100 ####[facility] [address] [place], [address] MCH (RBC) [Entitic mass] 30.1 pg Normal 27.0-32.0 [facility] Comment on above: Order Comment: 109-1 Performed By: #### L 100.0100 ####[facility] [address] [place], [address] MCHC (RBC) [Mass/Vol] 33.2 g/dL Normal 32-36 [facility] Comment on above: Order Comment: 109-1 Performed By: #### L 100.0100 ####[facility] [address] [place], [address] MCV (RBC) [Entitic vol] 90.8 fL Normal 80-94 [facility] Comment on above: Order Comment: 109-1 Performed By: #### L 100.0100 ####[facility] [address] [place], [address] Monocytes/100 WBC (Bld) 7.1 % Normal 0-10 [facility] Comment on above: Order Comment: 109-1 Performed By: #### L 100.0100 ####[facility] [address] [place], [address] Neutrophils/100 WBC (Bld) 66.7 % Normal 47-70 [facility] Comment on above: Order Comment: 109-1 Performed By: #### L 100.0100 ####[facility] [address] [place], [address] Nucleated RBC (Bld) [#/Vol] 0 10*3/uL Normal 0-5 [facility] Comment on above: Order Comment: 109-1 Performed By: #### L 100.0100 ####[facility] [address] [place], [address] Platelet mean volume (Bld) [Entitic vol] 11.2 fL Normal 6.2-12.0 [facility] Comment on above: Order Comment: 109-1 Performed By: #### L 100.0100 ####[facility] [address] [place], [address] Platelets (Bld) [#/Vol] 211 10*3/uL Normal 150-450 [facility] Comment on above: Order Comment: 109-1 Performed By: #### L 100.0100 ####[facility] [address] [place], [address] RBC (Bld) [#/Vol] 4.65 10*6/uL Normal 4.6-6.2 [facility] Comment on above: Order Comment: 109-1 Performed By: #### L 100.0100 ####[facility] [address] [place], [address] RDW SD 44.7 fl High 35.1-43.9 [facility] Comment on above: Order Comment: 109-1 Performed By: #### L 100.0100 ####[facility] [address] [place], [address] WBC (Bld) [#/Vol] 8.1 10*3/uL Normal 4.4-11.0 [facility] Comment on above: Order Comment: 109-1 Performed By: #### L 100.0100 ####[facility] [address] [place], [address] Eosinophil percentageOrdered By: Renard Burgos on 02-24-2025 Eosinophils/100 WBC (Bld) 0.9 % 0-5 [facility] Erythrocyte distribution wid th ratioOrdered By: Renard Burgos on 02-24-2025 Erythrocyte distribution width (RBC) [Ratio] 13.3 % 11.6-14.6 [facility] Erythrocyte distribution wid th standard deviationOrdered By: Renard Burgos on 02-24-2025 Erythrocyte distribution width (RBC) [Ratio] 44.7 fl High 35.1-43.9 [facility] Hematocrit Auto (Bld) [Volum e fraction]Ordered By: Renard Burgos on 02-24-2025 Hematocrit (Bld) [Volume fraction] 42.2 % 40-54 [facility] Hemoglobin measurementOrdere d By: Renard Burgos on 02-24-2025 Hemoglobin (Bld) [Mass/Vol] 14.0 g/dL 13.0-16.5 [facility] Immature granulocytes/100 WB C Auto (Bld)Ordered By: Renard Burgos on 02-24-2025 Immature granulocytes/100 WBC (Bld) 0.200 % 0.0-0.9 [facility] Comment on above: IG% - Immature Granu locytes (promyelocytes, myelocytes and metamyelocytes) > 1% indicates that a LEFT SHIFT is Present. MCV (mean corpuscular volume ) determinationOrdered By: Renard Burgos on 02-24-2025 MCV (RBC) [Entitic vol] 90.8 fL 80-94 [facility] Mean corpuscular hemoglobin (MCH) determinationOrdered By: Renard Burgos on 02-24-2025 MCH (RBC) [Entitic mass] 30.1 pg 27.0-32.0 [facility] Mean corpuscular hemoglobin concentration (MCHC) determinationOrdered By: Renard Burgos on 02-24-2025 MCHC (RBC) [Mass/Vol] 33.2 g/dL 32-36 [facility] Mean platelet volume determi nationOrdered By: Renard Burgos on 02-24-2025 Platelet mean volume (Bld) [Entitic vol] 11.2 fL 6.2-12.0 [facility] Monocyte percentageOrdered B y: Renard Burgos on 02-24-2025 Monocytes/100 WBC (Bld) 7.1 % 0-10 [facility] Neutrophil percentageOrdered By: Renard Burgos on 02-24-2025 Neutrophils/100 WBC (Bld) 66.7 % 47-70 [facility] Nucleated red blood cell per centageOrdered By: Renard Burgos on 02-24-2025 Nucleated RBC/100 WBC (Bld) [Ratio] 0 % 0-5 [facility] Platelet countOrdered By: Garrick Bhatt on 02-24-2025 Platelets (Bld) [#/Vol] 211 10*3/uL 150-450 [facility] RBC Auto (Bld) [#/Vol]Ordere d By: Renard Burgos on 02-24-2025 RBC (Bld) [#/Vol] 4.65 10*6/uL 4.6-6.2 [facility] White blood cell (WBC) count Ordered By: Renard Burgos on 02-24-2025 WBC (Bld) [#/Vol] 8.1 10*3/uL 4.4-11.0 [facility] Anion gap in Serum or Plasma Ordered By: Renard Burgos on 02-21-2025 Anion gap [Moles/Vol] 10 mmol/L - [facility] BUN/creatinine ratioOrdered By: Renard Burgos on 02-21-2025 Urea nitrogen/Creatinine [Mass ratio] 30.1 mg/mg High - [facility] Bilirubin, totalOrdered By: Renard Burgos on 02-21-2025 Bilirubin [Mass/Vol] 0.40 mg/dL 0.00-1.30 [facility] CBC-Complete Blood Cnt No Di ffon 02-21-2025 Erythrocyte distribution width (RBC) [Ratio] 13.7 % Normal 11.6-14.6 [facility] Comment on above: Order Comment: 109.1 Performed By: #### L 500.4100, L501.9985, L100.0500, L500.4050 ####[facility] [address] [place], [address] Hematocrit (Bld) [Volume fraction] 42.1 % Normal 40-54 [facility] Comment on above: Order Comment: 109.1 Performed By: #### L 500.4100, L501.9985, L100.0500, L500.4050 ####[facility] [address] [place], [address] Hemoglobin (Bld) [Mass/Vol] 13.6 g/dL Normal 13.0-16.5 [facility] Comment on above: Order Comment: 109.1 Performed By: #### L 500.4100, L501.9985, L100.0500, L500.4050 ####[facility] [address] [place], [address] MCH (RBC) [Entitic mass] 30.2 pg Normal 27.0-32.0 [facility] Comment on above: Order Comment: 109.1 Performed By: #### L 500.4100, L501.9985, L100.0500, L500.4050 ####[facility] [address] [place], [address] MCHC (RBC) [Mass/Vol] 32.3 g/dL Normal 32-36 [facility] Comment on above: Order Comment: 109.1 Performed By: #### L 500.4100, L501.9985, L100.0500, L500.4050 ####[facility] [address] [place], [address] MCV (RBC) [Entitic vol] 93.3 fL Normal 80-94 [facility] Comment on above: Order Comment: 109.1 Performed By: #### L 500.4100, L501.9985, L100.0500, L500.4050 ####[facility] [address] [place], [address] Platelet mean volume (Bld) [Entitic vol] 11.6 fL Normal 6.2-12.0 [facility] Comment on above: Order Comment: 109.1 Performed By: #### L 500.4100, L501.9985, L100.0500, L500.4050 ####[facility] [address] [place], [address] Platelets (Bld) [#/Vol] 173 10*3/uL Normal 150-450 [facility] Comment on above: Order Comment: 109.1 Performed By: #### L 500.4100, L501.9985, L100.0500, L500.4050 ####[facility] [address] [place], [address] RBC (Bld) [#/Vol] 4.51 10*6/uL Low 4.6-6.2 [facility] Comment on above: Order Comment: 109.1 Performed By: #### L 500.4100, L501.9985, L100.0500, L500.4050 ####[facility] [address] [place], [address] RDW SD 46.5 fl High 35.1-43.9 [facility] Comment on above: Order Comment: 109.1 Performed By: #### L 500.4100, L501.9985, L100.0500, L500.4050 ####[facility] [address] [place], [address] WBC (Bld) [#/Vol] 10.2 10*3/uL Normal 4.4-11.0 [facility] Comment on above: Order Comment: 109.1 Performed By: #### L 500.4100, L501.9985, L100.0500, L500.4050 ####[facility] [address] [place], [address] Calculated very low density lipoprotein (VLDL) cholesterol measurementOrdered By: Renard Burgos on 02-21-2025 Calculated very low density lipoprotein (VLDL) cholesterol measurement 37 mg/dL 5-40 [facility] Carbon dioxide, total [Moles /volume] in Central venous bloodOrdered By: Renard Burgos on 02-21-2025 CO2 [Moles/Vol] 22.4 mmol/L 21.0-32.0 [facility] Chloride assayOrdered By: Garrick Bhatt on 02-21-2025 Chloride [Moles/Vol] 104 mmol/L 98-108 [facility] Comprehensive Metabolic Prof ilon 02-21-2025 Albumin [Mass/Vol] 3.3 g/dL Low 3.4-4.8 [facility] Comment on above: Order Comment: 109.1 Performed By: #### L 500.4100, L501.9985, L100.0500, L500.4050 ####[facility] [address] [place], [address] Albumin/Globulin [Mass ratio] 1.1 {ratio} Normal 0.9-2.4 [facility] Comment on above: Order Comment: 109.1 Performed By: #### L 500.4100, L501.9985, L100.0500, L500.4050 ####[facility] [address] [place], [address] ALK PHOS 137 U/L High 40-129 [facility] Comment on above: Order Comment: 109.1 Performed By: #### L 500.4100, L501.9985, L100.0500, L500.4050 ####[facility] [address] [place], [address] ALT [Catalytic activity/Vol] 22 U/L Normal <=46 [facility] Comment on above: Order Comment: 109.1 Result Comment: Hemo lysis present, Results??could be affected.?? Performed By: #### L 500.4100, L501.9985, L100.0500, L500.4050 ####[facility] [address] [place], [address] AST [Catalytic activity/Vol] 39 U/L High <=37 [facility] Comment on above: Order Comment: 109.1 Result Comment: Hemo lysis present, Results??could be affected.?? Performed By: #### L 500.4100, L501.9985, L100.0500, L500.4050 ####[facility] [address] [place], [address] Bilirubin [Mass/Vol] 0.40 mg/dL Normal 0.00-1.30 [facility] Comment on above: Order Comment: 109.1 Performed By: #### L 500.4100, L501.9985, L100.0500, L500.4050 ####[facility] [address] [place], [address] BUN/CRE 30.1 RATIO High 10-20 [facility] Comment on above: Order Comment: 109.1 Performed By: #### L 500.4100, L501.9985, L100.0500, L500.4050 ####[facility] [address] [place], [address] Calcium [Mass/Vol] 8.6 mg/dL Normal 7.6-11.0 [facility] Comment on above: Order Comment: 109.1 Performed By: #### L 500.4100, L501.9985, L100.0500, L500.4050 ####[facility] [address] [place], [address] Chloride [Moles/Vol] 104 mmol/L Normal 98-108 [facility] Comment on above: Order Comment: 109.1 Performed By: #### L 500.4100, L501.9985, L100.0500, L500.4050 ####[facility] [address], [address] CO2 [Moles/Vol] 22.4 mmol/L Normal 21.0-32.0 [facility] Comment on above: Order Comment: 109.1 Performed By: #### L 500.4100, L501.9985, L100.0500, L500.4050 ####[facility] [address] [place], [address] Creatinine [Mass/Vol] 0.63 mg/dL Low 0.70-1.20 [facility] Comment on above: Order Comment: 109.1 Performed By: #### L 500.4100, L501.9985, L100.0500, L500.4050 ####[facility] [address] [place], [address] GAP 10 Normal 5-15 [facility] Comment on above: Order Comment: 109.1 Performed By: #### L 500.4100, L501.9985, L100.0500, L500.4050 ####[facility] [address] [place], [address] GFR/1.73 sq M.predicted among non-blacks MDRD (S/P/Bld) [Vol rate/Area] 104 mL/min/{1.73_m2} Normal >60 [facility] Comment on above: Order Comment: 109.1 Result Comment: mL/m in/1.73m2 CKD-EPI Creatinine Equation (2020) Performed By: #### L 500.4100, L501.9985, L100.0500, L500.4050 ####[facility] [address] [place], [address] Globulin (S) [Mass/Vol] 3.0 g/dL Normal 2.2-4.2 [facility] Comment on above: Order Comment: 109.1 Performed By: #### L 500.4100, L501.9985, L100.0500, L500.4050 ####[facility] [address] [place], [address] Glucose [Mass/Vol] 104 mg/dL High 70-99 [facility] Comment on above: Order Comment: 109.1 Performed By: #### L 500.4100, L501.9985, L100.0500, L500.4050 ####[facility] [address] [place], [address] Potassium [Moles/Vol] 5.0 mmol/L Normal 3.3-5.1 [facility] Comment on above: Order Comment: 109.1 Result Comment: Hemo lysis present, Results??could be affected.?? Performed By: #### L 500.4100, L501.9985, L100.0500, L500.4050 ####[facility] [address] [place], [address] Sodium [Moles/Vol] 137 mmol/L Normal 133-145 [facility] Comment on above: Order Comment: 109.1 Performed By: #### L 500.4100, L501.9985, L100.0500, L500.4050 ####[facility] [address] [place], [address] T PROT 6.3 g/dL Normal 5.9-8.4 [facility] Comment on above: Order Comment: 109.1 Performed By: #### L 500.4100, L501.9985, L100.0500, L500.4050 ####[facility] [address] [place], [address] Urea nitrogen [Mass/Vol] 19 mg/dL Normal 4-19 [facility] Comment on above: Order Comment: 109.1 Performed By: #### L 500.4100, L501.9985, L100.0500, L500.4050 ####[facility] [address] [place], [address] Erythrocyte distribution wid th ratioOrdered By: Renard Burgos on 02-21-2025 Erythrocyte distribution width (RBC) [Ratio] 13.7 % 11.6-14.6 [facility] Erythrocyte distribution wid th standard deviationOrdered By: Renard Burgos on 02-21-2025 Erythrocyte distribution width (RBC) [Ratio] 46.5 fl High 35.1-43.9 [facility] Glomerular filtration rate ( GFR) estimation/1.73 sq m using serum, plasma, or whole bOrdered By: Renard Burgos on 02-21-2025 GFR/1.73 sq M.predicted among non-blacks MDRD (S/P/Bld) [Vol rate/Area] 104 mL/min/{1.73_m2} >60 [facility] Comment on above: mL/min/1.73m2 CKD-EP I Creatinine Equation (2020) Hematocrit Auto (Bld) [Volum e fraction]Ordered By: Renard Burgos on 02-21-2025 Hematocrit (Bld) [Volume fraction] 42.1 % 40-54 [facility] Hemoglobin A1con 02-21-2025 HbA1c (Bld) [Mass fraction] 5.4 % Normal <=5.6 [facility] Comment on above: Order Comment: 109.1 Result Comment: Norm al < 5.7 % Prediabetic 5.7 - 6.4 % Diabetic >or= 6.5 % Please note range changes. Performed By: #### L 500.4100, L501.9985, L100.0500, L500.4050 ####[facility] [address] [place], [place], [id number] Hemoglobin A1c percentageOrd ered By: Renard Burgos on 02-21-2025 HbA1c (Bld) [Mass fraction] 5.4 % <5.7 [facility] Comment on above: Normal < 5.7 % Predi abetic 5.7 - 6.4 % Diabetic >or= 6.5 % Please note range changes. Hemoglobin measurementOrdere d By: Renard Burgos on 02-21-2025 Hemoglobin (Bld) [Mass/Vol] 13.6 g/dL 13.0-16.5 [facility] LDL calc ser/plasOrdered By: Renard Burgos on 02-21-2025 Cholesterol in LDL [Mass/Vol] 75 mg/dL [facility] Comment on above: Ixnaufkzno=353-892 m g/dL & Higher Brpu=735 mg/dL or greaterSampson Equation 2019 for LDL-C Laboratory - Chemistry and C hemistry - challengeOrdered By: Renard Burgos on 02-21-2025 AST [Catalytic activity/Vol] 39 U/L High <38 [facility] Comment on above: Hemolysis present, R esults could be affected. Lipid Profileon 02-21-2025 CHOL:HDL 4.32 Normal [facility] Comment on above: Order Comment: 109.1 Performed By: #### L 500.4100, L501.9985, L100.0500, L500.4050 ####[facility] [address], [address] Cholesterol [Mass/Vol] 139 mg/dL Normal <=200 [facility] Comment on above: Order Comment: 109.1 Result Comment: Chol esterol level, Desirable <200 mg/dLBorderline high cholesterol 200-239 mg/dLHigh cholesterol >=240 mg/dLRecommendations of the NCEP Adult Treatment Panel for thefollowing risk-cutoff thresholds for the [place] Americanpopulation. Performed By: #### L 500.4100, L501.9985, L100.0500, L500.4050 ####[facility] [address] [place], [address] Cholesterol in HDL [Mass/Vol] 32 mg/dL Low [facility] Comment on above: Order Comment: 109.1 Result Comment: Lucy onal Cholesterol Education Program (NCEP) guidelines:<40 mg/dL: Low HDL-cholesterol (major risk factor for CHD)>= 60 mg/dL: High HDL-cholesterol (negative risk factor forCHD)HDL-cholesterol is affected by a number of factors, e.g.smoking, exercise, hormones, sex and age. Performed By: #### L 500.4100, L501.9985, L100.0500, L500.4050 ####[facility] [address] [place], [address] Cholesterol in LDL [Mass/Vol] 75 mg/dL Normal [facility] Comment on above: Order Comment: 109.1 Result Comment: Bord rpwhqx=185-295 mg/dL Higher Zays=317 mg/dL or greaterSampson Equation 2020 for LDL-C Performed By: #### L 500.4100, L501.9985, L100.0500, L500.4050 ####[facility] [address] [place], [address] Cholesterol in VLDL [Mass/Vol] 37 mg/dL Normal 5-40 [facility] Comment on above: Order Comment: 109.1 Performed By: #### L 500.4100, L501.9985, L100.0500, L500.4050 ####[facility] [address] [place], [address] Triglyceride [Mass/Vol] 185 mg/dL Normal [facility] Comment on above: Order Comment: 109.1 Result Comment: The drugs N-Acetylcysteine and Metamizole may falselydepress this assay.Normal range: <150 mg/dLBorderline High: 150-199 mg/dLHigh: 200-499 mg/dLVery High: >500 mg/dL Performed By: #### L 500.4100, L501.9985, L100.0500, L500.4050 ####[facility] [address] [place], [address] MCV (mean corpuscular volume ) determinationOrdered By: Renard Burgos on 02-21-2025 MCV (RBC) [Entitic vol] 93.3 fL 80-94 [facility] Mean corpuscular hemoglobin (MCH) determinationOrdered By: Renard Burgos on 02-21-2025 MCH (RBC) [Entitic mass] 30.2 pg 27.0-32.0 [facility] Mean corpuscular hemoglobin concentration (MCHC) determinationOrdered By: Renard Burgos on 02-21-2025 MCHC (RBC) [Mass/Vol] 32.3 g/dL 32-36 [facility] Mean platelet volume determi nationOrdered By: Renard Burgos on 02-21-2025 Platelet mean volume (Bld) [Entitic vol] 11.6 fL 6.2-12.0 [facility] Platelet countOrdered By: Garrick Bhatt on 02-21-2025 Platelets (Bld) [#/Vol] 173 10*3/uL 150-450 [facility] Potassium measurement (mass/ volume)Ordered By: Renard Burgos on 02-21-2025 Potassium (Unsp spec) [Mass/Vol] 5.0 mmol/L 3.3-5.1 [facility] Comment on above: Hemolysis present, R esults could be affected. RBC Auto (Bld) [#/Vol]Ordere d By: Renard Burgos on 02-21-2025 RBC (Bld) [#/Vol] 4.51 10*6/uL Low 4.6-6.2 [facility] Screening total cholesterol/ high density lipoprotein (HDL) cholesterol ratioOrdered By: Renard Burgos on 02-21-2025 Cholesterol.total/Cecilia sterol in HDL [Mass ratio] 4.32 {ratio} [facility] Serum creatinine measurement (mass/volume)Ordered By: Renard Burgos on 02-21-2025 Creatinine [Mass/Vol] 0.63 mg/dL Low 0.70-1.20 [facility] Serum globulin measurementOr dered By: Renard Burgos on 02-21-2025 Globulin (S) [Mass/Vol] 3.0 g/dL 2.2-4.2 [facility] Serum glucose measurement (m ass/volume)Ordered By: Renard Burgos on 02-21-2025 Glucose [Mass/Vol] 104 mg/dL High 70-99 [facility] Serum or plasma alanine kay otransferase (ALT) measurementOrdered By: Renard Burgos on 02-21-2025 ALT [Catalytic activity/Vol] 22 U/L <47 [facility] Comment on above: Hemolysis present, R esults could be affected. Serum or plasma albumin gordy urement (mass/volume)Ordered By: Renard Burgos on 02-21-2025 Albumin [Mass/Vol] 3.3 g/dL Low 3.4-4.8 [facility] Serum or plasma albumin/glob ulin mass ratioOrdered By: Renard Burgos on 02-21-2025 Albumin/Globulin [Mass ratio] 1.1 {ratio} 0.9-2.4 [facility] Serum or plasma alkaline trace sphatase measurementOrdered By: Renard Burgos on 02-21-2025 ALP [Catalytic activity/Vol] 137 U/L High 40-129 [facility] Serum or plasma calcium gordy urement (mass/volume)Ordered By: Renard Burgos on 02-21-2025 Calcium [Mass/Vol] 8.6 mg/dL 7.6-11.0 [facility] Serum or plasma cholesterol in HDL measurement (mass/volume)Ordered By: Renard Burgos on 02-21-2025 Cholesterol in HDL [Mass/Vol] 32 mg/dL Low >40 [facility] Comment on above: National Cholesterol Education Program (NCEP) guidelines:<40 mg/dL: Low HDL-cholesterol (major risk factor for CHD)>= 60 mg/dL: High HDL-cholesterol (negative risk factor for CHD)HDL-cholesterol is affected by a number of factors, e.g. smoking, exercise, hormones, sex and age. Serum or plasma cholesterol measurement (mass/volume)Ordered By: Renard Burgos on 02-21-2025 Cholesterol [Mass/Vol] 139 mg/dL <201 [facility] Comment on above: Cholesterol level, D esirable <200 mg/dLBorderline high cholesterol 200-239 mg/dLHigh cholesterol >=240 mg/dLRecommendations of the NCEP Adult Treatment Panel for the following risk-cutoff thresholds for the [place] population. Serum or plasma urea nitroge n measurement (mass/volume)Ordered By: Renard Burgos on 02-21-2025 Urea nitrogen [Mass/Vol] 19 mg/dL 4-19 [facility] Sodium levelOrdered By: Lamine Burgos on 02-21-2025 Sodium [Moles/Vol] 137 mmol/L 133-145 [facility] Total proteinOrdered By: Lyubov Burgos on 02-21-2025 Protein [Mass/Vol] 6.3 g/dL 5.9-8.4 [facility] Triglycerides measurementOrd ered By: Renard Burgos on 02-21-2025 Triglyceride [Mass/Vol] 185 mg/dL <199 [facility] Comment on above: The drugs N-Acetylcy steine and Metamizole may falsely depress this assay. Normal range: <150 mg/dLBorderline High: 150-199 mg/dLHigh: 200-499 mg/dLVery High: >500 mg/dL White blood cell (WBC) count Ordered By: Renard Burgos on 02-21-2025 WBC (Bld) [#/Vol] 10.2 10*3/uL 4.4-11.0 [facility] Absolute lymphocyte countOrd ered By: Renard Burgos on 02-17-2025 Lymphocytes Auto (Unsp spec) [#/Vol] 2.31 10*3/uL 0.83-4.51 [facility] Absolute neutrophil countOrd ered By: Renard Burgos on 02-17-2025 Neutrophils (Bld) [#/Vol] 5.5 10*3/uL 2.0-7.7 [facility] Automated lymphocyte count a s percentage of total leukocytesOrdered By: Renard Burgos on 02-17-2025 Lymphocytes/100 WBC Auto (Unsp spec) 26.1 % 19-41 [facility] Basophil percentageOrdered B y: Renard Burgos on 02-17-2025 Basophils/100 WBC (Bld) 0.6 % 0-1 [facility] CBC W/Diff, Automatedon 01-30-2024 Absolute Lymph 2.31 X10 3/uL Normal 0.83-4.51 [facility] Comment on above: Order Comment: 109.1 Performed By: #### L 100.0100 ####[facility] [address] [place], [address] Absolute Neut 5.5 X10 3/uL Normal 2.0-7.7 [facility] Comment on above: Order Comment: 109.1 Performed By: #### L 100.0100 ####[facility] [address] [place], [address] Basophils/100 WBC (Bld) 0.6 % Normal 0-1 [facility] Comment on above: Order Comment: 109.1 Performed By: #### L 100.0100 ####[facility] [address] [place], [address] Eosinophils/100 WBC (Bld) 0.9 % Normal 0-5 [facility] Comment on above: Order Comment: 109.1 Performed By: #### L 100.0100 ####[facility] [address] [place], [address] Erythrocyte distribution width (RBC) [Ratio] 13.8 % Normal 11.6-14.6 [facility] Comment on above: Order Comment: 109.1 Performed By: #### L 100.0100 ####[facility] [address] [place], [address] Hematocrit (Bld) [Volume fraction] 43.6 % Normal 40-54 [facility] Comment on above: Order Comment: 109.1 Performed By: #### L 100.0100 ####[facility] [address] [place], [address] Hemoglobin (Bld) [Mass/Vol] 14.2 g/dL Normal 13.0-16.5 [facility] Comment on above: Order Comment: 109.1 Performed By: #### L 100.0100 ####[facility] [address] [place], [address] IG% 0.300 Normal 0.0-0.9 [facility] Comment on above: Order Comment: 109.1 Result Comment: IG% - Immature Granulocytes (promyelocytes, myelocytes andmetamyelocytes) > 1% indicates that a LEFT SHIFT is Present. Performed By: #### L 100.0100 ####[facility] [address] [place], [address] Lymphocytes/100 WBC (Bld) 26.1 % Normal 19-41 [facility] Comment on above: Order Comment: 109.1 Performed By: #### L 100.0100 ####[facility] [address] [place], [address] MCH (RBC) [Entitic mass] 30.4 pg Normal 27.0-32.0 [facility] Comment on above: Order Comment: 109.1 Performed By: #### L 100.0100 ####[facility] [address] [place], [address] MCHC (RBC) [Mass/Vol] 32.6 g/dL Normal 32-36 [facility] Comment on above: Order Comment: 109.1 Performed By: #### L 100.0100 ####[facility] [address] [place], [address] MCV (RBC) [Entitic vol] 93.4 fL Normal 80-94 [facility] Comment on above: Order Comment: 109.1 Performed By: #### L 100.0100 ####[facility] [address] [place], [address] Monocytes/100 WBC (Bld) 10.4 % High 0-10 [facility] Comment on above: Order Comment: 109.1 Performed By: #### L 100.0100 ####[facility] [address] [place], [address] Neutrophils/100 WBC (Bld) 61.7 % Normal 47-70 [facility] Comment on above: Order Comment: 109.1 Performed By: #### L 100.0100 ####[facility] [address] [place], [address] Nucleated RBC (Bld) [#/Vol] 0 10*3/uL Normal 0-5 [facility] Comment on above: Order Comment: 109.1 Performed By: #### L 100.0100 ####[facility] [address] [place], [address] Platelet mean volume (Bld) [Entitic vol] 11.3 fL Normal 6.2-12.0 [facility] Comment on above: Order Comment: 109.1 Performed By: #### L 100.0100 ####[facility] [address] [place], [address] Platelets (Bld) [#/Vol] 197 10*3/uL Normal 150-450 [facility] Comment on above: Order Comment: 109.1 Performed By: #### L 100.0100 ####[facility] [address] [place], [address] RBC (Bld) [#/Vol] 4.67 10*6/uL Normal 4.6-6.2 [facility] Comment on above: Order Comment: 109.1 Performed By: #### L 100.0100 ####[facility] [address] [place], [address] RDW SD 47.2 fl High 35.1-43.9 [facility] Comment on above: Order Comment: 109.1 Performed By: #### L 100.0100 ####[facility] [address] [place], [address] WBC (Bld) [#/Vol] 8.9 10*3/uL Normal 4.4-11.0 [facility] Comment on above: Order Comment: 109.1 Performed By: #### L 100.0100 ####[facility] [address] [place], [address] Eosinophil percentageOrdered By: Renard Burgos on 02-17-2025 Eosinophils/100 WBC (Bld) 0.9 % 0-5 [facility] Erythrocyte distribution wid th ratioOrdered By: Renard Burgos on 02-17-2025 Erythrocyte distribution width (RBC) [Ratio] 13.8 % 11.6-14.6 [facility] Erythrocyte distribution wid th standard deviationOrdered By: Renard Burgos on 02-17-2025 Erythrocyte distribution width (RBC) [Ratio] 47.2 fl High 35.1-43.9 [facility] Hematocrit Auto (Bld) [Volum e fraction]Ordered By: Renard Burgos on 02-17-2025 Hematocrit (Bld) [Volume fraction] 43.6 % 40-54 [facility] Hemoglobin measurementOrdere d By: Renard Burgos on 02-17-2025 Hemoglobin (Bld) [Mass/Vol] 14.2 g/dL 13.0-16.5 [facility] Immature granulocytes/100 WB C Auto (Bld)Ordered By: Renard Burgos on 02-17-2025 Immature granulocytes/100 WBC (Bld) 0.300 % 0.0-0.9 [facility] Comment on above: IG% - Immature Granu locytes (promyelocytes, myelocytes and metamyelocytes) > 1% indicates that a LEFT SHIFT is Present. MCV (mean corpuscular volume ) determinationOrdered By: Renard Burgos on 02-17-2025 MCV (RBC) [Entitic vol] 93.4 fL 80-94 [facility] Mean corpuscular hemoglobin (MCH) determinationOrdered By: Renard Burgos on 02-17-2025 MCH (RBC) [Entitic mass] 30.4 pg 27.0-32.0 [facility] Mean corpuscular hemoglobin concentration (MCHC) determinationOrdered By: Renard Burgos on 02-17-2025 MCHC (RBC) [Mass/Vol] 32.6 g/dL 32-36 [facility] Mean platelet volume determi nationOrdered By: Renard Burgos on 02-17-2025 Platelet mean volume (Bld) [Entitic vol] 11.3 fL 6.2-12.0 [facility] Monocyte percentageOrdered B y: Renard Burgos on 02-17-2025 Monocytes/100 WBC (Bld) 10.4 % High 0-10 [facility] Neutrophil percentageOrdered By: Renard Burgos on 02-17-2025 Neutrophils/100 WBC (Bld) 61.7 % 47-70 [facility] Nucleated red blood cell per centageOrdered By: Renard Burgos on 02-17-2025 Nucleated RBC/100 WBC (Bld) [Ratio] 0 % 0-5 [facility] Platelet countOrdered By: Garrick Bhatt on 02-17-2025 Platelets (Bld) [#/Vol] 197 10*3/uL 150-450 [facility] RBC Auto (Bld) [#/Vol]Ordere d By: Renard Burgos on 02-17-2025 RBC (Bld) [#/Vol] 4.67 10*6/uL 4.6-6.2 [facility] White blood cell (WBC) count Ordered By: Renard Burgos on 02-17-2025 WBC (Bld) [#/Vol] 8.9 10*3/uL 4.4-11.0 [facility] Absolute lymphocyte countOrd ered By: Renard Burgos on 02-10-2025 Lymphocytes Auto (Unsp spec) [#/Vol] 2.53 10*3/uL 0.83-4.51 [facility] Absolute neutrophil countOrd ered By: Renard Burgos on 02-10-2025 Neutrophils (Bld) [#/Vol] 5.5 10*3/uL 2.0-7.7 [facility] Automated lymphocyte count a s percentage of total leukocytesOrdered By: Renard Hensleyhola on 02-10-2025 Lymphocytes/100 WBC Auto (Unsp spec) 28.0 % 19-41 [facility] Basophil percentageOrdered B y: Renard Hensleyrustam on 02-10-2025 Basophils/100 WBC (Bld) 0.7 % 0-1 [facility] CBC W/Diff, Automatedon 01-29 Absolute Lymph 2.53 X10 3/uL Normal 0.83-4.51 [facility] Comment on above: Order Comment: 109 Performed By: #### L 100.0100 ####[facility] [address] [place], [address] Absolute Neut 5.5 X10 3/uL Normal 2.0-7.7 [facility] Comment on above: Order Comment: 109 Performed By: #### L 100.0100 ####[facility] [address] [place], [address] Basophils/100 WBC (Bld) 0.7 % Normal 0-1 [facility] Comment on above: Order Comment: 109 Performed By: #### L 100.0100 ####[facility] [address] [place], [address] Eosinophils/100 WBC (Bld) 0.8 % Normal 0-5 [facility] Comment on above: Order Comment: 109 Performed By: #### L 100.0100 ####[facility] [address] [place], [address] Erythrocyte distribution width (RBC) [Ratio] 13.6 % Normal 11.6-14.6 [facility] Comment on above: Order Comment: 109 Performed By: #### L 100.0100 ####[facility] [address] [place], [address] Hematocrit (Bld) [Volume fraction] 43.9 % Normal 40-54 [facility] Comment on above: Order Comment: 109 Performed By: #### L 100.0100 ####[facility] [address] [place], [address] Hemoglobin (Bld) [Mass/Vol] 14.2 g/dL Normal 13.0-16.5 [facility] Comment on above: Order Comment: 109 Performed By: #### L 100.0100 ####[facility] [address] [place], [address] IG% 0.300 Normal 0.0-0.9 [facility] Comment on above: Order Comment: 109 Result Comment: IG% - Immature Granulocytes (promyelocytes, myelocytes andmetamyelocytes) > 1% indicates that a LEFT SHIFT is Present. Performed By: #### L 100.0100 ####[facility] [address] [place], [address] Lymphocytes/100 WBC (Bld) 28.0 % Normal 19-41 [facility] Comment on above: Order Comment: 109 Performed By: #### L 100.0100 ####[facility] [address] [place], [address] MCH (RBC) [Entitic mass] 29.6 pg Normal 27.0-32.0 [facility] Comment on above: Order Comment: 109 Performed By: #### L 100.0100 ####[facility] [address] [place], [address] MCHC (RBC) [Mass/Vol] 32.3 g/dL Normal 32-36 [facility] Comment on above: Order Comment: 109 Performed By: #### L 100.0100 ####[facility] [address] [place], [address] MCV (RBC) [Entitic vol] 91.6 fL Normal 80-94 [facility] Comment on above: Order Comment: 109 Performed By: #### L 100.0100 ####[facility] [address] [place], [address] Monocytes/100 WBC (Bld) 8.9 % Normal 0-10 [facility] Comment on above: Order Comment: 109 Performed By: #### L 100.0100 ####[facility] [address] [place], [address] Neutrophils/100 WBC (Bld) 61.3 % Normal 47-70 [facility] Comment on above: Order Comment: 109 Performed By: #### L 100.0100 ####[facility] [address] [place], [address] Nucleated RBC (Bld) [#/Vol] 0 10*3/uL Normal 0-5 [facility] Comment on above: Order Comment: 109 Performed By: #### L 100.0100 ####[facility] [address] [place], [address] Platelet mean volume (Bld) [Entitic vol] 11.3 fL Normal 6.2-12.0 [facility] Comment on above: Order Comment: 109 Performed By: #### L 100.0100 ####[facility] [address] [place], [address] Platelets (Bld) [#/Vol] 217 10*3/uL Normal 150-450 [facility] Comment on above: Order Comment: 109 Performed By: #### L 100.0100 ####[facility] [address] [place], [address] RBC (Bld) [#/Vol] 4.79 10*6/uL Normal 4.6-6.2 [facility] Comment on above: Order Comment: 109 Performed By: #### L 100.0100 ####[facility] [address] [place], [address] RDW SD 45.8 fl High 35.1-43.9 [facility] Comment on above: Order Comment: 109 Performed By: #### L 100.0100 ####[facility] [address] [place], [address] WBC (Bld) [#/Vol] 9.0 10*3/uL Normal 4.4-11.0 [facility] Comment on above: Order Comment: 109 Performed By: #### L 100.0100 ####[facility] [address] [place], [address] Eosinophil percentageOrdered By: Renard Burgos on 02-10-2025 Eosinophils/100 WBC (Bld) 0.8 % 0-5 [facility] Erythrocyte distribution wid th ratioOrdered By: Renard Burgos on 02-10-2025 Erythrocyte distribution width (RBC) [Ratio] 13.6 % 11.6-14.6 [facility] Erythrocyte distribution wid th standard deviationOrdered By: Renard Burgos on 02-10-2025 Erythrocyte distribution width (RBC) [Ratio] 45.8 fl High 35.1-43.9 [facility] Hematocrit Auto (Bld) [Volum e fraction]Ordered By: Renard Burgos on 02-10-2025 Hematocrit (Bld) [Volume fraction] 43.9 % 40-54 [facility] Hemoglobin measurementOrdere d By: Renard Burgos on 02-10-2025 Hemoglobin (Bld) [Mass/Vol] 14.2 g/dL 13.0-16.5 [facility] Immature granulocytes/100 WB C Auto (Bld)Ordered By: Renard Burgos on 02-10-2025 Immature granulocytes/100 WBC (Bld) 0.300 % 0.0-0.9 [facility] Comment on above: IG% - Immature Granu locytes (promyelocytes, myelocytes and metamyelocytes) > 1% indicates that a LEFT SHIFT is Present. MCV (mean corpuscular volume ) determinationOrdered By: Renard Burgos on 02-10-2025 MCV (RBC) [Entitic vol] 91.6 fL 80-94 [facility] Mean corpuscular hemoglobin (MCH) determinationOrdered By: Renard Burgos on 02-10-2025 MCH (RBC) [Entitic mass] 29.6 pg 27.0-32.0 [facility] Mean corpuscular hemoglobin concentration (MCHC) determinationOrdered By: Renard Burgos on 02-10-2025 MCHC (RBC) [Mass/Vol] 32.3 g/dL 32-36 [facility] Mean platelet volume determi nationOrdered By: Renard Burgos on 02-10-2025 Platelet mean volume (Bld) [Entitic vol] 11.3 fL 6.2-12.0 [facility] Monocyte percentageOrdered B y: Renard Burgos on 02-10-2025 Monocytes/100 WBC (Bld) 8.9 % 0-10 [facility] Neutrophil percentageOrdered By: Renard Burgos on 02-10-2025 Neutrophils/100 WBC (Bld) 61.3 % 47-70 [facility] Nucleated red blood cell per centageOrdered By: Renard Burgos on 02-10-2025 Nucleated RBC/100 WBC (Bld) [Ratio] 0 % 0-5 [facility] Platelet countOrdered By: Garrick Bhatt on 02-10-2025 Platelets (Bld) [#/Vol] 217 10*3/uL 150-450 [facility] RBC Auto (Bld) [#/Vol]Ordere d By: Renard Burgos on 02-10-2025 RBC (Bld) [#/Vol] 4.79 10*6/uL 4.6-6.2 [facility] White blood cell (WBC) count Ordered By: Renard Burgos on 02-10-2025 WBC (Bld) [#/Vol] 9.0 10*3/uL 4.4-11.0 [facility] Absolute lymphocyte countOrd ered By: Renard Burgos on 02-03-2025 Lymphocytes Auto (Unsp spec) [#/Vol] 2.12 10*3/uL 0.83-4.51 [facility] Absolute neutrophil countOrd ered By: Renard Burgos on 02-03-2025 Neutrophils (Bld) [#/Vol] 6.0 10*3/uL 2.0-7.7 [facility] Automated lymphocyte count a s percentage of total leukocytesOrdered By: Renard Burgos on 02-03-2025 Lymphocytes/100 WBC Auto (Unsp spec) 22.9 % 19-41 [facility] Basophil percentageOrdered B y: Renard Burgos on 02-03-2025 Basophils/100 WBC (Bld) 0.5 % 0-1 [facility] CBC W/Diff, Automatedon 10-0 Absolute Lymph 2.12 X10 3/uL Normal 0.83-4.51 [facility] Comment on above: Order Comment: 109.1 Performed By: #### L 100.0100 ####[facility] [address] [place], [address] Absolute Neut 6.0 X10 3/uL Normal 2.0-7.7 [facility] Comment on above: Order Comment: 109.1 Performed By: #### L 100.0100 ####[facility] [address] [place], [address] Basophils/100 WBC (Bld) 0.5 % Normal 0-1 [facility] Comment on above: Order Comment: 109.1 Performed By: #### L 100.0100 ####[facility] [address] [place], [address] Eosinophils/100 WBC (Bld) 0.8 % Normal 0-5 [facility] Comment on above: Order Comment: 109.1 Performed By: #### L 100.0100 ####[facility] [address] [place], [address] Erythrocyte distribution width (RBC) [Ratio] 13.2 % Normal 11.6-14.6 [facility] Comment on above: Order Comment: 109.1 Performed By: #### L 100.0100 ####[facility] [address] [place], [address] Hematocrit (Bld) [Volume fraction] 40.1 % Normal 40-54 [facility] Comment on above: Order Comment: 109.1 Performed By: #### L 100.0100 ####[facility] [address] [place], [address] Hemoglobin (Bld) [Mass/Vol] 13.4 g/dL Normal 13.0-16.5 [facility] Comment on above: Order Comment: 109.1 Performed By: #### L 100.0100 ####[facility] [address] [place], [address] IG% 0.400 Normal 0.0-0.9 [facility] Comment on above: Order Comment: 109.1 Result Comment: IG% - Immature Granulocytes (promyelocytes, myelocytes andmetamyelocytes) > 1% indicates that a LEFT SHIFT is Present. Performed By: #### L 100.0100 ####[facility] [address] [place], [address] Lymphocytes/100 WBC (Bld) 22.9 % Normal 19-41 [facility] Comment on above: Order Comment: 109.1 Performed By: #### L 100.0100 ####[facility] [address] [place], [address] MCH (RBC) [Entitic mass] 29.9 pg Normal 27.0-32.0 [facility] Comment on above: Order Comment: 109.1 Performed By: #### L 100.0100 ####[facility] [address] [place], [address] MCHC (RBC) [Mass/Vol] 33.4 g/dL Normal 32-36 [facility] Comment on above: Order Comment: 109.1 Performed By: #### L 100.0100 ####[facility] [address] [place], [address] MCV (RBC) [Entitic vol] 89.5 fL Normal 80-94 [facility] Comment on above: Order Comment: 109.1 Performed By: #### L 100.0100 ####[facility] [address] [place], [address] Monocytes/100 WBC (Bld) 10.8 % High 0-10 [facility] Comment on above: Order Comment: 109.1 Performed By: #### L 100.0100 ####[facility] [address] [place], [address] Neutrophils/100 WBC (Bld) 64.6 % Normal 47-70 [facility] Comment on above: Order Comment: 109.1 Performed By: #### L 100.0100 ####[facility] [address] [place], [address] Nucleated RBC (Bld) [#/Vol] 0 10*3/uL Normal 0-5 [facility] Comment on above: Order Comment: 109.1 Performed By: #### L 100.0100 ####[facility] [address], [address] Platelet mean volume (Bld) [Entitic vol] 11.0 fL Normal 6.2-12.0 [facility] Comment on above: Order Comment: 109.1 Performed By: #### L 100.0100 ####[facility] [address] [place], [address] Platelets (Bld) [#/Vol] 243 10*3/uL Normal 150-450 [facility] Comment on above: Order Comment: 109.1 Performed By: #### L 100.0100 ####[facility] [address] [place], [address] RBC (Bld) [#/Vol] 4.48 10*6/uL Low 4.6-6.2 [facility] Comment on above: Order Comment: 109.1 Performed By: #### L 100.0100 ####[facility] [address] [place], [address] RDW SD 43.0 fl Normal 35.1-43.9 [facility] Comment on above: Order Comment: 109.1 Performed By: #### L 100.0100 ####[facility] [address] [place], [address] WBC (Bld) [#/Vol] 9.3 10*3/uL Normal 4.4-11.0 [facility] Comment on above: Order Comment: 109.1 Performed By: #### L 100.0100 ####[facility] [address] [place], [address] Eosinophil percentageOrdered By: Renard Burgos on 02-03-2025 Eosinophils/100 WBC (Bld) 0.8 % 0-5 [facility] Erythrocyte distribution wid th ratioOrdered By: Renard Burgos on 02-03-2025 Erythrocyte distribution width (RBC) [Ratio] 13.2 % 11.6-14.6 [facility] Erythrocyte distribution wid th standard deviationOrdered By: Renard Burgos on 02-03-2025 Erythrocyte distribution width (RBC) [Ratio] 43.0 fl 35.1-43.9 [facility] Hematocrit Auto (Bld) [Volum e fraction]Ordered By: Renard Burgos on 02-03-2025 Hematocrit (Bld) [Volume fraction] 40.1 % 40-54 [facility] Hemoglobin measurementOrdere d By: Renard Burgos on 02-03-2025 Hemoglobin (Bld) [Mass/Vol] 13.4 g/dL 13.0-16.5 [facility] Immature granulocytes/100 WB C Auto (Bld)Ordered By: Renard Burgos on 02-03-2025 Immature granulocytes/100 WBC (Bld) 0.400 % 0.0-0.9 [facility] Comment on above: IG% - Immature Granu locytes (promyelocytes, myelocytes and metamyelocytes) > 1% indicates that a LEFT SHIFT is Present. MCV (mean corpuscular volume ) determinationOrdered By: Renard Burgos on 02-03-2025 MCV (RBC) [Entitic vol] 89.5 fL 80-94 [facility] Mean corpuscular hemoglobin (MCH) determinationOrdered By: Renard Burgos on 02-03-2025 MCH (RBC) [Entitic mass] 29.9 pg 27.0-32.0 [facility] Mean corpuscular hemoglobin concentration (MCHC) determinationOrdered By: Renard Burgos on 02-03-2025 MCHC (RBC) [Mass/Vol] 33.4 g/dL 32-36 [facility] Mean platelet volume determi nationOrdered By: Renard Burgos on 02-03-2025 Platelet mean volume (Bld) [Entitic vol] 11.0 fL 6.2-12.0 [facility] Monocyte percentageOrdered B y: Renard Burgos on 02-03-2025 Monocytes/100 WBC (Bld) 10.8 % High 0-10 [facility] Neutrophil percentageOrdered By: Renard Burgos on 02-03-2025 Neutrophils/100 WBC (Bld) 64.6 % 47-70 [facility] Nucleated red blood cell per centageOrdered By: Renard Burgos on 02-03-2025 Nucleated RBC/100 WBC (Bld) [Ratio] 0 % 0-5 [facility] Platelet countOrdered By: Garrick Bhatt on 02-03-2025 Platelets (Bld) [#/Vol] 243 10*3/uL 150-450 [facility] RBC Auto (Bld) [#/Vol]Ordere d By: Renard Burgos on 02-03-2025 RBC (Bld) [#/Vol] 4.48 10*6/uL Low 4.6-6.2 [facility] White blood cell (WBC) count Ordered By: Renard Burgos on 02-03-2025 WBC (Bld) [#/Vol] 9.3 10*3/uL 4.4-11.0 [facility] Absolute lymphocyte countOrd ered By: Renard Burgos on 01-27-2025 Lymphocytes Auto (Unsp spec) [#/Vol] 2.19 10*3/uL 0.83-4.51 [facility] Absolute neutrophil countOrd ered By: Renard Burgos on 01-27-2025 Neutrophils (Bld) [#/Vol] 6.3 10*3/uL 2.0-7.7 [facility] Automated lymphocyte count a s percentage of total leukocytesOrdered By: Renard Burgos on 01-27-2025 Lymphocytes/100 WBC Auto (Unsp spec) 23.7 % 19-41 [facility] Basophil percentageOrdered B y: Renard Burgos on 01-27-2025 Basophils/100 WBC (Bld) 0.3 % 0-1 [facility] CBC W/Diff, Automatedon 12-31 Absolute Lymph 2.19 X10 3/uL Normal 0.83-4.51 [facility] Comment on above: Order Comment: 109.1 Performed By: #### L 100.0100 ####[facility] [address] [place], [address] Absolute Neut 6.3 X10 3/uL Normal 2.0-7.7 [facility] Comment on above: Order Comment: 109.1 Performed By: #### L 100.0100 ####[facility] [address] [place], [address] Basophils/100 WBC (Bld) 0.3 % Normal 0-1 [facility] Comment on above: Order Comment: 109.1 Performed By: #### L 100.0100 ####[facility] [address] [place], [address] Eosinophils/100 WBC (Bld) 0.6 % Normal 0-5 [facility] Comment on above: Order Comment: 109.1 Performed By: #### L 100.0100 ####[facility] [address] [place], [address] Erythrocyte distribution width (RBC) [Ratio] 13.3 % Normal 11.6-14.6 [facility] Comment on above: Order Comment: 109.1 Performed By: #### L 100.0100 ####[facility] [address] [place], [address] Hematocrit (Bld) [Volume fraction] 38.2 % Low 40-54 [facility] Comment on above: Order Comment: 109.1 Performed By: #### L 100.0100 ####[facility] [address] [place], [address] Hemoglobin (Bld) [Mass/Vol] 12.9 g/dL Low 13.0-16.5 [facility] Comment on above: Order Comment: 109.1 Performed By: #### L 100.0100 ####[facility] [address] [place], [address] IG% 0.400 Normal 0.0-0.9 [facility] Comment on above: Order Comment: 109.1 Result Comment: IG% - Immature Granulocytes (promyelocytes, myelocytes andmetamyelocytes) > 1% indicates that a LEFT SHIFT is Present. Performed By: #### L 100.0100 ####[facility] [address] [place], [address] Lymphocytes/100 WBC (Bld) 23.7 % Normal 19-41 [facility] Comment on above: Order Comment: 109.1 Performed By: #### L 100.0100 ####[facility] [address] [place], [address] MCH (RBC) [Entitic mass] 30.2 pg Normal 27.0-32.0 [facility] Comment on above: Order Comment: 109.1 Performed By: #### L 100.0100 ####[facility] [address] [place], [address] MCHC (RBC) [Mass/Vol] 33.8 g/dL Normal 32-36 [facility] Comment on above: Order Comment: 109.1 Performed By: #### L 100.0100 ####[facility] [address] [place], [address] MCV (RBC) [Entitic vol] 89.5 fL Normal 80-94 [facility] Comment on above: Order Comment: 109.1 Performed By: #### L 100.0100 ####[facility] [address] [place], [address] Monocytes/100 WBC (Bld) 6.8 % Normal 0-10 [facility] Comment on above: Order Comment: 109.1 Performed By: #### L 100.0100 ####[facility] [address] [place], [address] Neutrophils/100 WBC (Bld) 68.2 % Normal 47-70 [facility] Comment on above: Order Comment: 109.1 Performed By: #### L 100.0100 ####[facility] [address] [place], [address] Nucleated RBC (Bld) [#/Vol] 0 10*3/uL Normal 0-5 [facility] Comment on above: Order Comment: 109.1 Performed By: #### L 100.0100 ####[facility] [address] [place], [address] Platelet mean volume (Bld) [Entitic vol] 10.6 fL Normal 6.2-12.0 [facility] Comment on above: Order Comment: 109.1 Performed By: #### L 100.0100 ####[facility] [address] [place], [address] Platelets (Bld) [#/Vol] 247 10*3/uL Normal 150-450 [facility] Comment on above: Order Comment: 109.1 Performed By: #### L 100.0100 ####[facility] [address] [place], [address] RBC (Bld) [#/Vol] 4.27 10*6/uL Low 4.6-6.2 [facility] Comment on above: Order Comment: 109.1 Performed By: #### L 100.0100 ####[facility] [address] [place], [address] RDW SD 43.2 fl Normal 35.1-43.9 [facility] Comment on above: Order Comment: 109.1 Performed By: #### L 100.0100 ####[facility] [address] [place], [address] WBC (Bld) [#/Vol] 9.3 10*3/uL Normal 4.4-11.0 [facility] Comment on above: Order Comment: 109.1 Performed By: #### L 100.0100 ####[facility] [address], [address] Eosinophil percentageOrdered By: Renard Burgos on 01-27-2025 Eosinophils/100 WBC (Bld) 0.6 % 0-5 [facility] Erythrocyte distribution wid th ratioOrdered By: Renard Burgos on 01-27-2025 Erythrocyte distribution width (RBC) [Ratio] 13.3 % 11.6-14.6 [facility] Erythrocyte distribution wid th standard deviationOrdered By: Renard Burgos on 01-27-2025 Erythrocyte distribution width (RBC) [Ratio] 43.2 fl 35.1-43.9 [facility] Hematocrit Auto (Bld) [Volum e fraction]Ordered By: Renard Burgos on 01-27-2025 Hematocrit (Bld) [Volume fraction] 38.2 % Low 40-54 [facility] Hemoglobin measurementOrdere d By: Renard Burgos on 01-27-2025 Hemoglobin (Bld) [Mass/Vol] 12.9 g/dL Low 13.0-16.5 [facility] Immature granulocytes/100 WB C Auto (Bld)Ordered By: Renard Burgos on 01-27-2025 Immature granulocytes/100 WBC (Bld) 0.400 % 0.0-0.9 [facility] Comment on above: IG% - Immature Granu locytes (promyelocytes, myelocytes and metamyelocytes) > 1% indicates that a LEFT SHIFT is Present. MCV (mean corpuscular volume ) determinationOrdered By: Renard Burgos on 01-27-2025 MCV (RBC) [Entitic vol] 89.5 fL 80-94 [facility] Mean corpuscular hemoglobin (MCH) determinationOrdered By: Renard Burgos on 01-27-2025 MCH (RBC) [Entitic mass] 30.2 pg 27.0-32.0 [facility] Mean corpuscular hemoglobin concentration (MCHC) determinationOrdered By: Renard Burgos on 01-27-2025 MCHC (RBC) [Mass/Vol] 33.8 g/dL 32-36 [facility] Mean platelet volume determi nationOrdered By: Renard Burgos on 01-27-2025 Platelet mean volume (Bld) [Entitic vol] 10.6 fL 6.2-12.0 [facility] Monocyte percentageOrdered B y: Renard Burgos on 01-27-2025 Monocytes/100 WBC (Bld) 6.8 % 0-10 [facility] Neutrophil percentageOrdered By: Renard Burgos on 01-27-2025 Neutrophils/100 WBC (Bld) 68.2 % 47-70 [facility] Nucleated red blood cell per centageOrdered By: Renard Burgos on 01-27-2025 Nucleated RBC/100 WBC (Bld) [Ratio] 0 % 0-5 [facility] [facility] Platelet countOrdered By: Garrick Bhatt on 01-27-2025 Platelets (Bld) [#/Vol] 247 10*3/uL 150-450 [facility] RBC Auto (Bld) [#/Vol]Ordere d By: Renard Burgos on 01-27-2025 RBC (Bld) [#/Vol] 4.27 10*6/uL Low 4.6-6.2 [facility] White blood cell (WBC) count Ordered By: Renard Burgos on 01-27-2025 WBC (Bld) [#/Vol] 9.3 10*3/uL 4.4-11.0 [facility] Absolute lymphocyte countOrd ered By: Renard Burgos on 01-20-2025 Lymphocytes Auto (Unsp spec) [#/Vol] 2.11 10*3/uL 0.83-4.51 [facility] Absolute neutrophil countOrd ered By: Renard Burgos on 01-20-2025 Neutrophils (Bld) [#/Vol] 4.5 10*3/uL 2.0-7.7 [facility] Automated lymphocyte count a s percentage of total leukocytesOrdered By: Renard Hensleyrustam on 01-20-2025 Lymphocytes/100 WBC Auto (Unsp spec) 27.9 % 19-41 [facility] Basophil percentageOrdered B y: Renard Burgos on 01-20-2025 Basophils/100 WBC (Bld) 0.5 % 0-1 [facility] CBC W/Diff, Automatedon 12-31 Absolute Lymph 2.11 X10 3/uL Normal 0.83-4.51 [facility] Comment on above: Order Comment: 109.1 Performed By: #### L 100.0100 ####[facility] [address] [place], [address] Absolute Neut 4.5 X10 3/uL Normal 2.0-7.7 [facility] Comment on above: Order Comment: 109.1 Performed By: #### L 100.0100 ####[facility] [address] [place], [address] Basophils/100 WBC (Bld) 0.5 % Normal 0-1 [facility] Comment on above: Order Comment: 109.1 Performed By: #### L 100.0100 ####[facility] [address] [place], [address] Eosinophils/100 WBC (Bld) 1.1 % Normal 0-5 [facility] Comment on above: Order Comment: 109.1 Performed By: #### L 100.0100 ####[facility] [address] [place], [address] Erythrocyte distribution width (RBC) [Ratio] 13.1 % Normal 11.6-14.6 [facility] Comment on above: Order Comment: 109.1 Performed By: #### L 100.0100 ####[facility] [address] [place], [address] Hematocrit (Bld) [Volume fraction] 36.3 % Low 40-54 [facility] Comment on above: Order Comment: 109.1 Performed By: #### L 100.0100 ####[facility] [address] [place], [address] Hemoglobin (Bld) [Mass/Vol] 11.6 g/dL Low 13.0-16.5 [facility] Comment on above: Order Comment: 109.1 Performed By: #### L 100.0100 ####[facility] [address] [place], [address] IG% 0.700 Normal 0.0-0.9 [facility] Comment on above: Order Comment: 109.1 Result Comment: IG% - Immature Granulocytes (promyelocytes, myelocytes andmetamyelocytes) > 1% indicates that a LEFT SHIFT is Present. Performed By: #### L 100.0100 ####[facility] [address] [place], [address] Lymphocytes/100 WBC (Bld) 27.9 % Normal 19-41 [facility] Comment on above: Order Comment: 109.1 Performed By: #### L 100.0100 ####[facility] [address] [place], [address] MCH (RBC) [Entitic mass] 29.6 pg Normal 27.0-32.0 [facility] Comment on above: Order Comment: 109.1 Performed By: #### L 100.0100 ####[facility] [address] [place], [address] MCHC (RBC) [Mass/Vol] 32.0 g/dL Normal 32-36 [facility] Comment on above: Order Comment: 109.1 Performed By: #### L 100.0100 ####[facility] [address] [place], [address] MCV (RBC) [Entitic vol] 92.6 fL Normal 80-94 [facility] Comment on above: Order Comment: 109.1 Performed By: #### L 100.0100 ####[facility] [address] [place], [address] Monocytes/100 WBC (Bld) 10.1 % High 0-10 [facility] Comment on above: Order Comment: 109.1 Performed By: #### L 100.0100 ####[facility] [address] [place], [address] Neutrophils/100 WBC (Bld) 59.7 % Normal 47-70 [facility] Comment on above: Order Comment: 109.1 Performed By: #### L 100.0100 ####[facility] [address] [place], [address] Nucleated RBC (Bld) [#/Vol] 0 10*3/uL Normal 0-5 [facility] Comment on above: Order Comment: 109.1 Performed By: #### L 100.0100 ####[facility] [address] [place], [address] Platelet mean volume (Bld) [Entitic vol] 10.6 fL Normal 6.2-12.0 [facility] Comment on above: Order Comment: 109.1 Performed By: #### L 100.0100 ####[facility] [address] [place], [address] Platelets (Bld) [#/Vol] 248 10*3/uL Normal 150-450 [facility] Comment on above: Order Comment: 109.1 Performed By: #### L 100.0100 ####[facility] [address] [place], [address] RBC (Bld) [#/Vol] 3.92 10*6/uL Low 4.6-6.2 [facility] Comment on above: Order Comment: 109.1 Performed By: #### L 100.0100 ####[facility] [address] [place], [address] RDW SD 44.6 fl High 35.1-43.9 [facility] Comment on above: Order Comment: 109.1 Performed By: #### L 100.0100 ####[facility] [address] [place], [address] WBC (Bld) [#/Vol] 7.6 10*3/uL Normal 4.4-11.0 [facility] Comment on above: Order Comment: 109.1 Performed By: #### L 100.0100 ####[facility] [address] [facility] [place], [address] Eosinophil percentageOrdered By: Renard Burgos on 01-20-2025 Eosinophils/100 WBC (Bld) 1.1 % 0-5 [facility] Erythrocyte distribution wid th ratioOrdered By: Renard Burgos on 01-20-2025 Erythrocyte distribution width (RBC) [Ratio] 13.1 % 11.6-14.6 [facility] Erythrocyte distribution wid th standard deviationOrdered By: Renard Burgos on 01-20-2025 Erythrocyte distribution width (RBC) [Ratio] 44.6 fl High 35.1-43.9 [facility] Hematocrit Auto (Bld) [Volum e fraction]Ordered By: Renard Burgos on 01-20-2025 Hematocrit (Bld) [Volume fraction] 36.3 % Low 40-54 [facility] Hemoglobin measurementOrdere d By: Renard Burgos on 01-20-2025 Hemoglobin (Bld) [Mass/Vol] 11.6 g/dL Low 13.0-16.5 [facility] Immature granulocytes/100 WB C Auto (Bld)Ordered By: Renard Burgos on 01-20-2025 Immature granulocytes/100 WBC (Bld) 0.700 % 0.0-0.9 [facility] Comment on above: IG% - Immature Granu locytes (promyelocytes, myelocytes and metamyelocytes) > 1% indicates that a LEFT SHIFT is Present. MCV (mean corpuscular volume ) determinationOrdered By: Renard Burgos on 01-20-2025 MCV (RBC) [Entitic vol] 92.6 fL 80-94 [facility] Mean corpuscular hemoglobin (MCH) determinationOrdered By: Renard Burgos on 01-20-2025 MCH (RBC) [Entitic mass] 29.6 pg 27.0-32.0 [facility] Mean corpuscular hemoglobin concentration (MCHC) determinationOrdered By: Renard Burgos on 01-20-2025 MCHC (RBC) [Mass/Vol] 32.0 g/dL 32-36 [facility] Mean platelet volume determi nationOrdered By: Renard Burgos on 01-20-2025 Platelet mean volume (Bld) [Entitic vol] 10.6 fL 6.2-12.0 [facility] Monocyte percentageOrdered B y: Renard Burgos on 01-20-2025 Monocytes/100 WBC (Bld) 10.1 % High 0-10 [facility] Neutrophil percentageOrdered By: Renard Burgos on 01-20-2025 Neutrophils/100 WBC (Bld) 59.7 % 47-70 [facility] Nucleated red blood cell per centageOrdered By: Renard Burgos on 01-20-2025 Nucleated RBC/100 WBC (Bld) [Ratio] 0 % 0-5 [facility] Platelet countOrdered By: Garrick Bhatt on 01-20-2025 Platelets (Bld) [#/Vol] 248 10*3/uL 150-450 [facility] RBC Auto (Bld) [#/Vol]Ordere d By: Renard Burgos on 01-20-2025 RBC (Bld) [#/Vol] 3.92 10*6/uL Low 4.6-6.2 [facility] White blood cell (WBC) count Ordered By: Renard Burgos on 01-20-2025 WBC (Bld) [#/Vol] 7.6 10*3/uL 4.4-11.0 [facility] Absolute lymphocyte countOrd ered By: Renard Burgos on 01-13-2025 Lymphocytes Auto (Unsp spec) [#/Vol] 1.91 10*3/uL 0.83-4.51 [facility] Absolute neutrophil countOrd ered By: Renard Burgos on 01-13-2025 Neutrophils (Bld) [#/Vol] 6.4 10*3/uL 2.0-7.7 [facility] Automated lymphocyte count a s percentage of total leukocytesOrdered By: Renard Burgos on 01-13-2025 Lymphocytes/100 WBC Auto (Unsp spec) 20.7 % 19-41 [facility] Basophil percentageOrdered B y: Renard Burgos on 01-13-2025 Basophils/100 WBC (Bld) 0.5 % 0-1 [facility] CBC W/Diff, Automatedon 12-30 Absolute Lymph 1.91 X10 3/uL Normal 0.83-4.51 [facility] Comment on above: Order Comment: 109-1 Performed By: #### L 100.0100 ####[facility] [address] [place], [address] Absolute Neut 6.4 X10 3/uL Normal 2.0-7.7 [facility] Comment on above: Order Comment: 109-1 Performed By: #### L 100.0100 ####[facility] [address] [place], [address] Basophils/100 WBC (Bld) 0.5 % Normal 0-1 [facility] Comment on above: Order Comment: 109-1 Performed By: #### L 100.0100 ####[facility] [address] [place], [address] Eosinophils/100 WBC (Bld) 0.8 % Normal 0-5 [facility] Comment on above: Order Comment: 109-1 Performed By: #### L 100.0100 ####[facility] [address] [place], [address] Erythrocyte distribution width (RBC) [Ratio] 13.2 % Normal 11.6-14.6 [facility] Comment on above: Order Comment: 109-1 Performed By: #### L 100.0100 ####[facility] [address] [place], [address] Hematocrit (Bld) [Volume fraction] 40.2 % Normal 40-54 [facility] Comment on above: Order Comment: 109-1 Performed By: #### L 100.0100 ####[facility] [address] [place], [address] Hemoglobin (Bld) [Mass/Vol] 13.3 g/dL Normal 13.0-16.5 [facility] Comment on above: Order Comment: 109-1 Performed By: #### L 100.0100 ####[facility] [address] [place], [address] IG% 0.300 Normal 0.0-0.9 [facility] Comment on above: Order Comment: 109-1 Result Comment: IG% - Immature Granulocytes (promyelocytes, myelocytes andmetamyelocytes) > 1% indicates that a LEFT SHIFT is Present. Performed By: #### L 100.0100 ####[facility] [address] [place], [address] Lymphocytes/100 WBC (Bld) 20.7 % Normal 19-41 [facility] Comment on above: Order Comment: 109-1 Performed By: #### L 100.0100 ####[facility] [address] [place], [address] MCH (RBC) [Entitic mass] 30.4 pg Normal 27.0-32.0 [facility] Comment on above: Order Comment: 109-1 Performed By: #### L 100.0100 ####[facility] [address] [place], [address] MCHC (RBC) [Mass/Vol] 33.1 g/dL Normal 32-36 [facility] Comment on above: Order Comment: 109-1 Performed By: #### L 100.0100 ####[facility] [address] [place], [address] MCV (RBC) [Entitic vol] 92.0 fL Normal 80-94 [facility] Comment on above: Order Comment: 109-1 Performed By: #### L 100.0100 ####[facility] [address] [place], [address] Monocytes/100 WBC (Bld) 8.1 % Normal 0-10 [facility] Comment on above: Order Comment: 109-1 Performed By: #### L 100.0100 ####[facility] [address] [place], [address] Neutrophils/100 WBC (Bld) 69.6 % Normal 47-70 [facility] Comment on above: Order Comment: 109-1 Performed By: #### L 100.0100 ####[facility] [address] [place], [address] Nucleated RBC (Bld) [#/Vol] 0 10*3/uL Normal 0-5 [facility] Comment on above: Order Comment: 109-1 Performed By: #### L 100.0100 ####[facility] [address] [place], [address] Platelet mean volume (Bld) [Entitic vol] 11.5 fL Normal 6.2-12.0 [facility] Comment on above: Order Comment: 109-1 Performed By: #### L 100.0100 ####[facility] [address] [place], [address] Platelets (Bld) [#/Vol] 198 10*3/uL Normal 150-450 [facility] Comment on above: Order Comment: 109-1 Performed By: #### L 100.0100 ####[facility] [address] [place], [address] RBC (Bld) [#/Vol] 4.37 10*6/uL Low 4.6-6.2 [facility] Comment on above: Order Comment: 109-1 Performed By: #### L 100.0100 ####[facility] [address] [place], [address] RDW SD 44.6 fl High 35.1-43.9 [facility] Comment on above: Order Comment: 109-1 Performed By: #### L 100.0100 ####[facility] [address] [place], [address] WBC (Bld) [#/Vol] 9.2 10*3/uL Normal 4.4-11.0 [facility] Comment on above: Order Comment: 109-1 Performed By: #### L 100.0100 ####[facility] [address] [place], [address] Eosinophil percentageOrdered By: Renard Burgos on 01-13-2025 Eosinophils/100 WBC (Bld) 0.8 % 0-5 [facility] Erythrocyte distribution wid th ratioOrdered By: Renard Burgos on 01-13-2025 Erythrocyte distribution width (RBC) [Ratio] 13.2 % 11.6-14.6 [facility] Erythrocyte distribution wid th standard deviationOrdered By: Renard Burgos on 01-13-2025 Erythrocyte distribution width (RBC) [Ratio] 44.6 fl High 35.1-43.9 [facility] Hematocrit Auto (Bld) [Volum e fraction]Ordered By: Renard Burgos on 01-13-2025 Hematocrit (Bld) [Volume fraction] 40.2 % 40-54 [facility] Hemoglobin measurementOrdere d By: Renard Burgos on 01-13-2025 Hemoglobin (Bld) [Mass/Vol] 13.3 g/dL 13.0-16.5 [facility] Immature granulocytes/100 WB C Auto (Bld)Ordered By: Renard uBrgos on 01-13-2025 Immature granulocytes/100 WBC (Bld) 0.300 % 0.0-0.9 [facility] Comment on above: IG% - Immature Granu locytes (promyelocytes, myelocytes and metamyelocytes) > 1% indicates that a LEFT SHIFT is Present. MCV (mean corpuscular volume ) determinationOrdered By: Renard Burgos on 01-13-2025 MCV (RBC) [Entitic vol] 92.0 fL 80-94 [facility] Mean corpuscular hemoglobin (MCH) determinationOrdered By: Renard Burgos on 01-13-2025 MCH (RBC) [Entitic mass] 30.4 pg 27.0-32.0 [facility] Mean corpuscular hemoglobin concentration (MCHC) determinationOrdered By: Renard Burgos on 01-13-2025 MCHC (RBC) [Mass/Vol] 33.1 g/dL 32-36 [facility] Mean platelet volume determi nationOrdered By: Renard Burgos on 01-13-2025 Platelet mean volume (Bld) [Entitic vol] 11.5 fL 6.2-12.0 [facility] Monocyte percentageOrdered B y: Renard Burgos on 01-13-2025 Monocytes/100 WBC (Bld) 8.1 % 0-10 [facility] Neutrophil percentageOrdered By: Renard Burgos on 01-13-2025 Neutrophils/100 WBC (Bld) 69.6 % 47-70 [facility] Nucleated red blood cell per centageOrdered By: Renard Burgos on 01-13-2025 Nucleated RBC/100 WBC (Bld) [Ratio] 0 % 0-5 [facility] Platelet countOrdered By: Garrick Bhatt on 01-13-2025 Platelets (Bld) [#/Vol] 198 10*3/uL 150-450 [facility] RBC Auto (Bld) [#/Vol]Ordere d By: Renard Burgos on 01-13-2025 RBC (Bld) [#/Vol] 4.37 10*6/uL Low 4.6-6.2 [facility] White blood cell (WBC) count Ordered By: Renard Burgos on 01-13-2025 WBC (Bld) [#/Vol] 9.2 10*3/uL 4.4-11.0 [facility] Anion gap in Serum or Plasma Ordered By: Renard Burgos on 01-10-2025 Anion gap [Moles/Vol] 9 mmol/L 5-15 [facility] BUN/creatinine ratioOrdered By: Renard Burgos on 01-10-2025 Urea nitrogen/Creatinine [Mass ratio] 27.7 mg/mg High - [facility] Basic Metabolic Profile (BMP )on 01-10-2025 BUN/CRE 27.7 RATIO High - [facility] Comment on above: Order Comment: 109.1 Performed By: #### L 500.2500 ####[facility] [address] [place], [address] Calcium [Mass/Vol] 8.2 mg/dL Normal 7.6-11.0 [facility] Comment on above: Order Comment: 109.1 Performed By: #### L 500.2500 ####[facility] [address] [place], [address] Chloride [Moles/Vol] 106 mmol/L Normal 98-108 [facility] Comment on above: Order Comment: 109.1 Performed By: #### L 500.2500 ####[facility] [address] [place], [address] CO2 [Moles/Vol] 25.6 mmol/L Normal 21.0-32.0 [facility] Comment on above: Order Comment: 109.1 Performed By: #### L 500.2500 ####[facility] [address] [place], [address] Creatinine [Mass/Vol] 0.54 mg/dL Low 0.70-1.20 [facility] Comment on above: Order Comment: 109.1 Performed By: #### L 500.2500 ####[facility] [address] [place], [address] GAP 9 Normal 5-15 [facility] Comment on above: Order Comment: 109.1 Performed By: #### L 500.2500 ####[facility] [address] [place], [address] GFR/1.73 sq M.predicted among non-blacks MDRD (S/P/Bld) [Vol rate/Area] 109 mL/min/{1.73_m2} Normal >60 [facility] Comment on above: Order Comment: 109.1 Result Comment: mL/m in/1.73m2 CKD-EPI Creatinine Equation (2020) Performed By: #### L 500.2500 ####[facility] [address] [place], [address] Glucose [Mass/Vol] 126 mg/dL High 70-99 [facility] Comment on above: Order Comment: 109.1 Performed By: #### L 500.2500 ####[facility] [address] [place], [address] Potassium [Moles/Vol] 3.8 mmol/L Normal 3.3-5.1 [facility] Comment on above: Order Comment: 109.1 Performed By: #### L 500.2500 ####[facility] [address] [place], [address] Sodium [Moles/Vol] 140 mmol/L Normal 133-145 [facility] Comment on above: Order Comment: 109.1 Performed By: #### L 500.2500 ####[facility] [address] [place], [address] Urea nitrogen [Mass/Vol] 15 mg/dL Normal 4-19 [facility] Comment on above: Order Comment: 109.1 Performed By: #### L 500.2500 ####[facility] [address] [place], [address] Carbon dioxide, total [Moles /volume] in Central venous bloodOrdered By: Renard Burgos on 01-10-2025 CO2 [Moles/Vol] 25.6 mmol/L 21.0-32.0 [facility] Chloride assayOrdered By: Garrick Bhatt on 01-10-2025 Chloride [Moles/Vol] 106 mmol/L 98-108 [facility] Glomerular filtration rate ( GFR) estimation/1.73 sq m using serum, plasma, or whole bOrdered By: Renard Burgos on 01-10-2025 GFR/1.73 sq M.predicted among non-blacks MDRD (S/P/Bld) [Vol rate/Area] 109 mL/min/{1.73_m2} >60 [facility] Comment on above: mL/min/1.73m2 CKD-EP I Creatinine Equation (2020) Potassium measurement (mass/ volume)Ordered By: Renard Burgos on 01-10-2025 Potassium (Unsp spec) [Mass/Vol] 3.8 mmol/L 3.3-5.1 [facility] Serum creatinine measurement (mass/volume)Ordered By: Renard Burgos on 01-10-2025 Creatinine [Mass/Vol] 0.54 mg/dL Low 0.70-1.20 [facility] Serum glucose measurement (m ass/volume)Ordered By: Renard Burgos on 01-10-2025 Glucose [Mass/Vol] 126 mg/dL High 70-99 [facility] Serum or plasma calcium gordy urement (mass/volume)Ordered By: Renard Burgos on 01-10-2025 Calcium [Mass/Vol] 8.2 mg/dL 7.6-11.0 [facility] Serum or plasma urea nitroge n measurement (mass/volume)Ordered By: Renard Burgos on 01-10-2025 Urea nitrogen [Mass/Vol] 15 mg/dL 4-19 [facility] Sodium levelOrdered By: Lamine Burgos on 01-10-2025 Sodium [Moles/Vol] 140 mmol/L 133-145 [facility] Absolute lymphocyte countOrd ered By: Renard Burgos on 01-06-2025 Lymphocytes Auto (Unsp spec) [#/Vol] 2.29 10*3/uL 0.83-4.51 [facility] Absolute neutrophil countOrd ered By: Renard Burgos on 01-06-2025 Neutrophils (Bld) [#/Vol] 5.6 10*3/uL 2.0-7.7 [facility] Automated lymphocyte count a s percentage of total leukocytesOrdered By: Renard Burgos on 01-06-2025 Lymphocytes/100 WBC Auto (Unsp spec) 26.1 % 19-41 [facility] Basophil percentageOrdered B y: Renard Burgos on 01-06-2025 Basophils/100 WBC (Bld) 0.6 % 0-1 [facility] CBC W/Diff, Automatedon PLT EST ADEQUATE Normal ADEQ [facility] Comment on above: Order Comment: 109.1 Performed By: #### L 100.0100 ####[facility] [address] [place], [address] Eosinophil percentageOrdered By: Renard Burgos on 01-06-2025 Eosinophils/100 WBC (Bld) 1.1 % 0-5 [facility] Erythrocyte distribution wid th ratioOrdered By: Renard Burgos on 01-06-2025 Erythrocyte distribution width (RBC) [Ratio] 13.2 % 11.6-14.6 [facility] Erythrocyte distribution wid th standard deviationOrdered By: Renard Burgos on 01-06-2025 Erythrocyte distribution width (RBC) [Ratio] 44.2 fl High 35.1-43.9 [facility] Hematocrit Auto (Bld) [Volum e fraction]Ordered By: Renard Burgos on 01-06-2025 Hematocrit (Bld) [Volume fraction] 43.3 % 40-54 [facility] Hemoglobin measurementOrdere d By: Renard Burgos on 01-06-2025 Hemoglobin (Bld) [Mass/Vol] 14.2 g/dL 13.0-16.5 [facility] Immature granulocytes/100 WB C Auto (Bld)Ordered By: Renard Burgos on 01-06-2025 Immature granulocytes/100 WBC (Bld) 0.300 % 0.0-0.9 [facility] Comment on above: IG% - Immature Granu locytes (promyelocytes, myelocytes and metamyelocytes) > 1% indicates that a LEFT SHIFT is Present. MCV (mean corpuscular volume ) determinationOrdered By: Renard Burgos on 01-06-2025 MCV (RBC) [Entitic vol] 92.7 fL 80-94 [facility] Mean corpuscular hemoglobin (MCH) determinationOrdered By: Renard Burgos on 01-06-2025 MCH (RBC) [Entitic mass] 30.4 pg 27.0-32.0 [facility] Mean corpuscular hemoglobin concentration (MCHC) determinationOrdered By: Renard Burgos on 01-06-2025 MCHC (RBC) [Mass/Vol] 32.8 g/dL 32-36 [facility] Mean platelet volume determi nationOrdered By: Renard Burgos on 01-06-2025 Platelet mean volume (Bld) [Entitic vol] 11.5 fL 6.2-12.0 [facility] Monocyte percentageOrdered B y: Renard Burgos on 01-06-2025 Monocytes/100 WBC (Bld) 8.5 % 0-10 [facility] Neutrophil percentageOrdered By: Renard Burgos on 01-06-2025 Neutrophils/100 WBC (Bld) 63.4 % 47-70 [facility] Nucleated red blood cell per centageOrdered By: Renard Burgos on 01-06-2025 Nucleated RBC/100 WBC (Bld) [Ratio] 0 % 0-5 [facility] Platelet countOrdered By: Garrick Bhatt on 01-06-2025 Platelets (Bld) [#/Vol] 197 10*3/uL 150-450 [facility] Platelet estimateOrdered By: Renard Burgos on 01-06-2025 Platelets LM Ql (Bld) ADEQUATE ADEQ [facility] RBC Auto (Bld) [#/Vol]Ordere d By: Renard Burgos on 01-06-2025 RBC (Bld) [#/Vol] 4.67 10*6/uL 4.6-6.2 [facility] White blood cell (WBC) count Ordered By: Renard Burgos on 01-06-2025 WBC (Bld) [#/Vol] 8.8 10*3/uL 4.4-11.0 [facility] Absolute lymphocyte countOrd ered By: Renard Burgos on 12-31-2024 Lymphocytes Auto (Unsp spec) [#/Vol] 1.87 10*3/uL 0.83-4.51 [facility] Absolute neutrophil countOrd ered By: Renard Burgos on 12-31-2024 Neutrophils (Bld) [#/Vol] 5.3 10*3/uL 2.0-7.7 [facility] Automated blood erythrocyte countOrdered By: Renard Burgos on 12-31-2024 RBC (Bld) [#/Vol] 4.47 10*6/uL Low 4.6-6.2 [facility] Comment on above: Order Comment: 109.1 Performed By: #### L 100.0100 ####[facility] [address] [place], [place], [id number] Automated blood hematocrit ( percentage)Ordered By: Renard Burgos on 12-31-2024 Hematocrit (Bld) [Volume fraction] 41.3 % Normal 40-54 [facility] Comment on above: Order Comment: 109.1 Performed By: #### L 100.0100 ####[facility] [address] [place], [address] Automated lymphocyte count a s percentage of total leukocytesOrdered By: Renard Burgos on 12-31-2024 Lymphocytes/100 WBC Auto (Unsp spec) 23.4 % 19-41 [facility] Basophil percentageOrdered B y: Renard Burgos on 12-31-2024 Basophils/100 WBC (Bld) 0.4 % Normal 0-1 [facility] Comment on above: Order Comment: 109.1 Performed By: #### L 100.0100 ####[facility] [address] [place], [address] CBC W/Diff, Automatedon - Absolute Lymph 1.87 X10 3/uL Normal 0.83-4.51 [facility] Comment on above: Order Comment: 109.1 Performed By: #### L 100.0100 ####[facility] [address] [place], [address] Absolute Neut 5.3 X10 3/uL Normal 2.0-7.7 [facility] Comment on above: Order Comment: 109.1 Performed By: #### L 100.0100 ####[facility] [address] [place], [address] IG% 0.400 Normal 0.0-0.9 [facility] Comment on above: Order Comment: 109.1 Result Comment: IG% - Immature Granulocytes (promyelocytes, myelocytes andmetamyelocytes) > 1% indicates that a LEFT SHIFT is Present. Performed By: #### L 100.0100 ####[facility] [address] [place], [address] Lymphocytes/100 WBC (Bld) 23.4 % Normal 19-41 [facility] Comment on above: Order Comment: 109.1 Performed By: #### L 100.0100 ####[facility] [address] [place], [address] Nucleated RBC (Bld) [#/Vol] 0 10*3/uL Normal 0-5 [facility] Comment on above: Order Comment: 109.1 Performed By: #### L 100.0100 ####[facility] [address] [place], [address] RDW SD 43.8 fl Normal 35.1-43.9 [facility] Comment on above: Order Comment: 109.1 Performed By: #### L 100.0100 ####[facility] [address] [place], [address] Eosinophil percentageOrdered By: Renard Burgos on 12-31-2024 Eosinophils/100 WBC (Bld) 0.6 % Normal 0-5 [facility] Comment on above: Order Comment: 109.1 Performed By: #### L 100.0100 ####[facility] [address] [place], [address] Erythrocyte distribution wid th ratioOrdered By: Renard Burgos on 12-31-2024 Erythrocyte distribution width (RBC) [Ratio] 13.1 % Normal 11.6-14.6 [facility] Comment on above: Order Comment: 109.1 Performed By: #### L 100.0100 ####[facility] [address] [place], [place], [id number] Erythrocyte distribution wid th standard deviationOrdered By: Renard Burgos on 12-31-2024 Erythrocyte distribution width (RBC) [Ratio] 43.8 fl 35.1-43.9 [facility] Hemoglobin measurementOrdere d By: Renard Burgos on 12-31-2024 Hemoglobin (Bld) [Mass/Vol] 13.4 g/dL Normal 13.0-16.5 [facility] Comment on above: Order Comment: 109.1 Performed By: #### L 100.0100 ####[facility] [address] [place], [address] Immature granulocytes/100 WB C Auto (Bld)Ordered By: Renard Burgos on 12-31-2024 Immature granulocytes/100 WBC (Bld) 0.400 % 0.0-0.9 [facility] Comment on above: IG% - Immature Granu locytes (promyelocytes, myelocytes and metamyelocytes) > 1% indicates that a LEFT SHIFT is Present. MCV (mean corpuscular volume ) determinationOrdered By: Renard Burgos on 12-31-2024 MCV (RBC) [Entitic vol] 92.4 fL Normal 80-94 [facility] Comment on above: Order Comment: 109.1 Performed By: #### L 100.0100 ####[facility] [address] [place], [place], [id number] Mean corpuscular hemoglobin (MCH) determinationOrdered By: Renard Burgos on 12-31-2024 MCH (RBC) [Entitic mass] 30.0 pg Normal 27.0-32.0 [facility] Comment on above: Order Comment: 109.1 Performed By: #### L 100.0100 ####[facility] [address] [place], [place], [id number] Mean corpuscular hemoglobin concentration (MCHC) determinationOrdered By: Renard Burgos on 12-31-2024 MCHC (RBC) [Mass/Vol] 32.4 g/dL Normal 32-36 [facility] Comment on above: Order Comment: 109.1 Performed By: #### L 100.0100 ####[facility] [address] [place], [address] Mean platelet volume determi nationOrdered By: Renard Burgos on 12-31-2024 Platelet mean volume (Bld) [Entitic vol] 10.9 fL Normal 6.2-12.0 [facility] Comment on above: Order Comment: 109.1 Performed By: #### L 100.0100 ####[facility] [address] [place], [address] Monocyte percentageOrdered B y: Renard Burgos on 12-31-2024 Monocytes/100 WBC (Bld) 9.0 % Normal 0-10 [facility] Comment on above: Order Comment: 109.1 Performed By: #### L 100.0100 ####[facility] [address] [place], [address] Neutrophil percentageOrdered By: Renard Burgos on 12-31-2024 Neutrophils/100 WBC (Bld) 66.2 % Normal 47-70 [facility] Comment on above: Order Comment: 109.1 Performed By: #### L 100.0100 ####[facility] [address] [place], [address] Nucleated red blood cell per centageOrdered By: Renard Burgos on 12-31-2024 Nucleated RBC/100 WBC (Bld) [Ratio] 0 % 0-5 [facility] Platelet countOrdered By: Garrick Bhatt on 12-31-2024 Platelets (Bld) [#/Vol] 209 10*3/uL Normal 150-450 [facility] Comment on above: Order Comment: 109.1 Performed By: #### L 100.0100 ####[facility] [address] [place], [address] White blood cell (WBC) count Ordered By: Renard Burgos on 12-31-2024 WBC (Bld) [#/Vol] 8.0 10*3/uL Normal 4.4-11.0 [facility] Comment on above: Order Comment: 109.1 Performed By: #### L 100.0100 ####[facility] [address] [place], [address] Absolute lymphocyte countOrd ered By: Renard Burgos on 12-23-2024 Lymphocytes Auto (Unsp spec) [#/Vol] 1.98 10*3/uL 0.83-4.51 [facility] Absolute neutrophil countOrd ered By: Renard Burgos on 12-23-2024 Neutrophils (Bld) [#/Vol] 4.2 10*3/uL 2.0-7.7 [facility] Automated lymphocyte count a s percentage of total leukocytesOrdered By: Renard Burgos on 12-23-2024 Lymphocytes/100 WBC Auto (Unsp spec) 28.9 % 19-41 [facility] Basophil percentageOrdered B y: Renard Burgos on 12-23-2024 Basophils/100 WBC (Bld) 0.6 % 0-1 [facility] CBC W/Diff, Automatedon 11-30 Absolute Lymph 1.98 X10 3/uL Normal 0.83-4.51 [facility] Comment on above: Order Comment: 109-1 Performed By: #### L 100.0100 ####[facility] [address] [place], [address] Absolute Neut 4.2 X10 3/uL Normal 2.0-7.7 [facility] Comment on above: Order Comment: 109-1 Performed By: #### L 100.0100 ####[facility] [address] [place], [address] Basophils/100 WBC (Bld) 0.6 % Normal 0-1 [facility] Comment on above: Order Comment: 109-1 Performed By: #### L 100.0100 ####[facility] [address] [place], [address] Eosinophils/100 WBC (Bld) 0.9 % Normal 0-5 [facility] Comment on above: Order Comment: 109-1 Performed By: #### L 100.0100 ####[facility] [address] [place], [address] Erythrocyte distribution width (RBC) [Ratio] 13.0 % Normal 11.6-14.6 [facility] Comment on above: Order Comment: 109-1 Performed By: #### L 100.0100 ####[facility] [address] [place], [address] Hematocrit (Bld) [Volume fraction] 39.9 % Low 40-54 [facility] Comment on above: Order Comment: 109-1 Performed By: #### L 100.0100 ####[facility] [address] [place], [address] Hemoglobin (Bld) [Mass/Vol] 13.4 g/dL Normal 13.0-16.5 [facility] Comment on above: Order Comment: 109-1 Performed By: #### L 100.0100 ####[facility] [address] [place], [address] IG% 0.300 Normal 0.0-0.9 [facility] Comment on above: Order Comment: 109-1 Result Comment: IG% - Immature Granulocytes (promyelocytes, myelocytes andmetamyelocytes) > 1% indicates that a LEFT SHIFT is Present. Performed By: #### L 100.0100 ####[facility] [address] [place], [address] Lymphocytes/100 WBC (Bld) 28.9 % Normal 19-41 [facility] Comment on above: Order Comment: 109-1 Performed By: #### L 100.0100 ####[facility] [address] [place], [address] MCH (RBC) [Entitic mass] 30.9 pg Normal 27.0-32.0 [facility] Comment on above: Order Comment: 109-1 Performed By: #### L 100.0100 ####[facility] [address] [place], [address] MCHC (RBC) [Mass/Vol] 33.6 g/dL Normal 32-36 [facility] Comment on above: Order Comment: 109-1 Performed By: #### L 100.0100 ####[facility] [address] [place], [address] MCV (RBC) [Entitic vol] 91.9 fL Normal 80-94 [facility] Comment on above: Order Comment: 109-1 Performed By: #### L 100.0100 ####[facility] [address] [place], [address] Monocytes/100 WBC (Bld) 8.0 % Normal 0-10 [facility] Comment on above: Order Comment: 109-1 Performed By: #### L 100.0100 ####[facility] [address] [place], [address] Neutrophils/100 WBC (Bld) 61.3 % Normal 47-70 [facility] Comment on above: Order Comment: 109-1 Performed By: #### L 100.0100 ####[facility] [address] [place], [address] Nucleated RBC (Bld) [#/Vol] 0 10*3/uL Normal 0-5 [facility] Comment on above: Order Comment: 109-1 Performed By: #### L 100.0100 ####[facility] [address] [place], [address] Platelet mean volume (Bld) [Entitic vol] 11.7 fL Normal 6.2-12.0 [facility] Comment on above: Order Comment: 109-1 Performed By: #### L 100.0100 ####[facility] [address] [place], [address] Platelets (Bld) [#/Vol] 201 10*3/uL Normal 150-450 [facility] Comment on above: Order Comment: 109-1 Performed By: #### L 100.0100 ####[facility] [address] [place], [address] RBC (Bld) [#/Vol] 4.34 10*6/uL Low 4.6-6.2 [facility] Comment on above: Order Comment: 109-1 Performed By: #### L 100.0100 ####[facility] [address] [place], [address] RDW SD 43.4 fl Normal 35.1-43.9 [facility] Comment on above: Order Comment: 109-1 Performed By: #### L 100.0100 ####[facility] [address] [place], [address] WBC (Bld) [#/Vol] 6.8 10*3/uL Normal 4.4-11.0 [facility] Comment on above: Order Comment: 109-1 Performed By: #### L 100.0100 ####[facility] [address] [place], [address] Eosinophil percentageOrdered By: Renard Burgos on 12-23-2024 Eosinophils/100 WBC (Bld) 0.9 % 0-5 [facility] Erythrocyte distribution wid th ratioOrdered By: Renard Burgos on 12-23-2024 Erythrocyte distribution width (RBC) [Ratio] 13.0 % 11.6-14.6 [facility] Erythrocyte distribution wid th standard deviationOrdered By: Renard Burgos on 12-23-2024 Erythrocyte distribution width (RBC) [Ratio] 43.4 fl 35.1-43.9 [facility] Hematocrit Auto (Bld) [Volum e fraction]Ordered By: Renard Burgos on 12-23-2024 Hematocrit (Bld) [Volume fraction] 39.9 % Low 40-54 [facility] Hemoglobin measurementOrdere d By: Renard Burgos on 12-23-2024 Hemoglobin (Bld) [Mass/Vol] 13.4 g/dL 13.0-16.5 [facility] Immature granulocytes/100 WB C Auto (Bld)Ordered By: Renard Burgos on 12-23-2024 Immature granulocytes/100 WBC (Bld) 0.300 % 0.0-0.9 [facility] Comment on above: IG% - Immature Granu locytes (promyelocytes, myelocytes and metamyelocytes) > 1% indicates that a LEFT SHIFT is Present. MCV (mean corpuscular volume ) determinationOrdered By: Renard Burgos on 12-23-2024 MCV (RBC) [Entitic vol] 91.9 fL 80-94 [facility] Mean corpuscular hemoglobin (MCH) determinationOrdered By: Renard Burgos on 12-23-2024 MCH (RBC) [Entitic mass] 30.9 pg 27.0-32.0 [facility] Mean corpuscular hemoglobin concentration (MCHC) determinationOrdered By: Renard Burgos on 12-23-2024 MCHC (RBC) [Mass/Vol] 33.6 g/dL 32-36 [facility] Mean platelet volume determi nationOrdered By: Renard Burgos on 12-23-2024 Platelet mean volume (Bld) [Entitic vol] 11.7 fL 6.2-12.0 [facility] Monocyte percentageOrdered B y: Renard Burgos on 12-23-2024 Monocytes/100 WBC (Bld) 8.0 % 0-10 [facility] Neutrophil percentageOrdered By: Renard Burgos on 12-23-2024 Neutrophils/100 WBC (Bld) 61.3 % 47-70 [facility] Nucleated red blood cell per centageOrdered By: Renard Burgos on 12-23-2024 Nucleated RBC/100 WBC (Bld) [Ratio] 0 % 0-5 [facility] Platelet countOrdered By: Garrick Bhatt on 12-23-2024 Platelets (Bld) [#/Vol] 201 10*3/uL 150-450 [facility] RBC Auto (Bld) [#/Vol]Ordere d By: Renard Burgos on 12-23-2024 RBC (Bld) [#/Vol] 4.34 10*6/uL Low 4.6-6.2 [facility] White blood cell (WBC) count Ordered By: Renard Burgos on 12-23-2024 WBC (Bld) [#/Vol] 6.8 10*3/uL 4.4-11.0 [facility] Absolute lymphocyte countOrd ered By: Renard Burgos on 12-16-2024 Lymphocytes Auto (Unsp spec) [#/Vol] 2.15 10*3/uL 0.83-4.51 [facility] Absolute neutrophil countOrd ered By: Renard Burgos on 12-16-2024 Neutrophils (Bld) [#/Vol] 4.1 10*3/uL 2.0-7.7 [facility] Automated lymphocyte count a s percentage of total leukocytesOrdered By: Renard Burgos on 12-16-2024 Lymphocytes/100 WBC Auto (Unsp spec) 30.7 % 19-41 [facility] Basophil percentageOrdered B y: Renard Burgos on 12-16-2024 Basophils/100 WBC (Bld) 0.7 % 0-1 [facility] CBC W/Diff, Automatedon 11-29 Absolute Lymph 2.15 X10 3/uL Normal 0.83-4.51 [facility] Comment on above: Order Comment: 109.1 Performed By: #### L 100.0100 ####[facility] [address] [place], [address] Absolute Neut 4.1 X10 3/uL Normal 2.0-7.7 [facility] Comment on above: Order Comment: 109.1 Performed By: #### L 100.0100 ####[facility] [address] [place], [address] Basophils/100 WBC (Bld) 0.7 % Normal 0-1 [facility] Comment on above: Order Comment: 109.1 Performed By: #### L 100.0100 ####[facility] [address] [place], [address] Eosinophils/100 WBC (Bld) 0.9 % Normal 0-5 [facility] Comment on above: Order Comment: 109.1 Performed By: #### L 100.0100 ####[facility] [address] [place], [address] Erythrocyte distribution width (RBC) [Ratio] 13.2 % Normal 11.6-14.6 [facility] Comment on above: Order Comment: 109.1 Performed By: #### L 100.0100 ####[facility] [address] [place], [address] Hematocrit (Bld) [Volume fraction] 38.7 % Low 40-54 [facility] Comment on above: Order Comment: 109.1 Performed By: #### L 100.0100 ####[facility] [address] [place], [address] Hemoglobin (Bld) [Mass/Vol] 12.8 g/dL Low 13.0-16.5 [facility] Comment on above: Order Comment: 109.1 Performed By: #### L 100.0100 ####[facility] [address] [place], [address] IG% 0.300 Normal 0.0-0.9 [facility] Comment on above: Order Comment: 109.1 Result Comment: IG% - Immature Granulocytes (promyelocytes, myelocytes andmetamyelocytes) > 1% indicates that a LEFT SHIFT is Present. Performed By: #### L 100.0100 ####[facility] [address] [place], [address] Lymphocytes/100 WBC (Bld) 30.7 % Normal 19-41 [facility] Comment on above: Order Comment: 109.1 Performed By: #### L 100.0100 ####[facility] [address] [place], [address] MCH (RBC) [Entitic mass] 30.3 pg Normal 27.0-32.0 [facility] Comment on above: Order Comment: 109.1 Performed By: #### L 100.0100 ####[facility] [address] [place], [address] MCHC (RBC) [Mass/Vol] 33.1 g/dL Normal 32-36 [facility] Comment on above: Order Comment: 109.1 Performed By: #### L 100.0100 ####[facility] [address] [place], [address] MCV (RBC) [Entitic vol] 91.7 fL Normal 80-94 [facility] Comment on above: Order Comment: 109.1 Performed By: #### L 100.0100 ####[facility] [address] [place], [address] Monocytes/100 WBC (Bld) 8.6 % Normal 0-10 [facility] Comment on above: Order Comment: 109.1 Performed By: #### L 100.0100 ####[facility] [address] [place], [address] Neutrophils/100 WBC (Bld) 58.8 % Normal 47-70 [facility] Comment on above: Order Comment: 109.1 Performed By: #### L 100.0100 ####[facility] [address] [place], [address] Nucleated RBC (Bld) [#/Vol] 0 10*3/uL Normal 0-5 [facility] Comment on above: Order Comment: 109.1 Performed By: #### L 100.0100 ####[facility] [address] [place], [address] Platelet mean volume (Bld) [Entitic vol] 11.3 fL Normal 6.2-12.0 [facility] Comment on above: Order Comment: 109.1 Performed By: #### L 100.0100 ####[facility] [address] [place], [address] Platelets (Bld) [#/Vol] 202 10*3/uL Normal 150-450 [facility] Comment on above: Order Comment: 109.1 Performed By: #### L 100.0100 ####[facility] [address] [place], [address] RBC (Bld) [#/Vol] 4.22 10*6/uL Low 4.6-6.2 [facility] Comment on above: Order Comment: 109.1 Performed By: #### L 100.0100 ####[facility] [address] [place], [address] RDW SD 44.4 fl High 35.1-43.9 [facility] Comment on above: Order Comment: 109.1 Performed By: #### L 100.0100 ####[facility] [address] [place], [address] WBC (Bld) [#/Vol] 7.0 10*3/uL Normal 4.4-11.0 [facility] Comment on above: Order Comment: 109.1 Performed By: #### L 100.0100 ####[facility] [address] [place], [address] Eosinophil percentageOrdered By: Renard Burgos on 12-16-2024 Eosinophils/100 WBC (Bld) 0.9 % 0-5 [facility] Erythrocyte distribution wid th ratioOrdered By: Renard Burgos on 12-16-2024 Erythrocyte distribution width (RBC) [Ratio] 13.2 % 11.6-14.6 [facility] Erythrocyte distribution wid th standard deviationOrdered By: Renard Burgos on 12-16-2024 Erythrocyte distribution width (RBC) [Ratio] 44.4 fl High 35.1-43.9 [facility] Hematocrit Auto (Bld) [Volum e fraction]Ordered By: Renard Burgos on 12-16-2024 Hematocrit (Bld) [Volume fraction] 38.7 % Low 40-54 [facility] Hemoglobin measurementOrdere d By: Renard Burgos on 12-16-2024 Hemoglobin (Bld) [Mass/Vol] 12.8 g/dL Low 13.0-16.5 [facility] Immature granulocytes/100 WB C Auto (Bld)Ordered By: Renard Burgos on 12-16-2024 Immature granulocytes/100 WBC (Bld) 0.300 % 0.0-0.9 [facility] Comment on above: IG% - Immature Granu locytes (promyelocytes, myelocytes and metamyelocytes) > 1% indicates that a LEFT SHIFT is Present. MCV (mean corpuscular volume ) determinationOrdered By: Renard Burgos on 12-16-2024 MCV (RBC) [Entitic vol] 91.7 fL 80-94 [facility] Mean corpuscular hemoglobin (MCH) determinationOrdered By: Renard Burgos on 12-16-2024 MCH (RBC) [Entitic mass] 30.3 pg 27.0-32.0 [facility] Mean corpuscular hemoglobin concentration (MCHC) determinationOrdered By: Renard Burgos on 12-16-2024 MCHC (RBC) [Mass/Vol] 33.1 g/dL 32-36 [facility] Mean platelet volume determi nationOrdered By: Renard Burgos on 12-16-2024 Platelet mean volume (Bld) [Entitic vol] 11.3 fL 6.2-12.0 [facility] Monocyte percentageOrdered B y: Renard Burgos on 12-16-2024 Monocytes/100 WBC (Bld) 8.6 % 0-10 [facility] Neutrophil percentageOrdered By: Renard Burgos on 12-16-2024 Neutrophils/100 WBC (Bld) 58.8 % 47-70 [facility] Nucleated red blood cell per centageOrdered By: Renard Burgos on 12-16-2024 Nucleated RBC/100 WBC (Bld) [Ratio] 0 % 0-5 [facility] Platelet countOrdered By: Garrick Bhatt on 12-16-2024 Platelets (Bld) [#/Vol] 202 10*3/uL 150-450 [facility] RBC Auto (Bld) [#/Vol]Ordere d By: Renard Burgos on 12-16-2024 RBC (Bld) [#/Vol] 4.22 10*6/uL Low 4.6-6.2 [facility] White blood cell (WBC) count Ordered By: Renard Burgos on 12-16-2024 WBC (Bld) [#/Vol] 7.0 10*3/uL 4.4-11.0 [facility] Absolute lymphocyte countOrd ered By: Renard Burgos on 12-09-2024 Lymphocytes Auto (Unsp spec) [#/Vol] 2.30 10*3/uL 0.83-4.51 [facility] Absolute neutrophil countOrd ered By: Renard Burgos on 12-09-2024 Neutrophils (Bld) [#/Vol] 4.8 10*3/uL 2.0-7.7 [facility] Automated lymphocyte count a s percentage of total leukocytesOrdered By: Reanrd Burgos on 12-09-2024 Lymphocytes/100 WBC Auto (Unsp spec) 29.2 % 19-41 [facility] Basophil percentageOrdered B y: Renard Burgos on 12-09-2024 Basophils/100 WBC (Bld) 0.5 % 0-1 [facility] CBC W/Diff, Automatedon 11-29 Absolute Lymph 2.30 X10 3/uL Normal 0.83-4.51 [facility] Comment on above: Order Comment: 109.1 Performed By: #### L 100.0100 ####[facility] [address] [place], [address] Absolute Neut 4.8 X10 3/uL Normal 2.0-7.7 [facility] Comment on above: Order Comment: 109.1 Performed By: #### L 100.0100 ####[facility] [address] [place], [address] Basophils/100 WBC (Bld) 0.5 % Normal 0-1 [facility] Comment on above: Order Comment: 109.1 Performed By: #### L 100.0100 ####[facility] [address] [place], [address] Eosinophils/100 WBC (Bld) 1.0 % Normal 0-5 [facility] Comment on above: Order Comment: 109.1 Performed By: #### L 100.0100 ####[facility] [address] [place], [address] Erythrocyte distribution width (RBC) [Ratio] 13.0 % Normal 11.6-14.6 [facility] Comment on above: Order Comment: 109.1 Performed By: #### L 100.0100 ####[facility] [address] [place], [address] Hematocrit (Bld) [Volume fraction] 40.3 % Normal 40-54 [facility] Comment on above: Order Comment: 109.1 Performed By: #### L 100.0100 ####[facility] [address] [place], [address] Hemoglobin (Bld) [Mass/Vol] 12.8 g/dL Low 13.0-16.5 [facility] Comment on above: Order Comment: 109.1 Performed By: #### L 100.0100 ####[facility] [address] [place], [address] IG% 0.400 Normal 0.0-0.9 [facility] Comment on above: Order Comment: 109.1 Result Comment: IG% - Immature Granulocytes (promyelocytes, myelocytes andmetamyelocytes) > 1% indicates that a LEFT SHIFT is Present. Performed By: #### L 100.0100 ####[facility] [address] [place], [address] Lymphocytes/100 WBC (Bld) 29.2 % Normal 19-41 [facility] Comment on above: Order Comment: 109.1 Performed By: #### L 100.0100 ####[facility] [address] [place], [address] MCH (RBC) [Entitic mass] 29.6 pg Normal 27.0-32.0 [facility] Comment on above: Order Comment: 109.1 Performed By: #### L 100.0100 ####[facility] [address] [place], [address] MCHC (RBC) [Mass/Vol] 31.8 g/dL Low 32-36 [facility] Comment on above: Order Comment: 109.1 Performed By: #### L 100.0100 ####[facility] [address] [place], [address] MCV (RBC) [Entitic vol] 93.1 fL Normal 80-94 [facility] Comment on above: Order Comment: 109.1 Performed By: #### L 100.0100 ####[facility] [address] [place], [address] Monocytes/100 WBC (Bld) 7.7 % Normal 0-10 [facility] Comment on above: Order Comment: 109.1 Performed By: #### L 100.0100 ####[facility] [address] [place], [address] Neutrophils/100 WBC (Bld) 61.2 % Normal 47-70 [facility] Comment on above: Order Comment: 109.1 Performed By: #### L 100.0100 ####[facility] [address] [place], [address] Nucleated RBC (Bld) [#/Vol] 0 10*3/uL Normal 0-5 [facility] Comment on above: Order Comment: 109.1 Performed By: #### L 100.0100 ####[facility] [address] [place], [address] Platelet mean volume (Bld) [Entitic vol] 11.5 fL Normal 6.2-12.0 [facility] Comment on above: Order Comment: 109.1 Performed By: #### L 100.0100 ####[facility] [address] [place], [address] Platelets (Bld) [#/Vol] 194 10*3/uL Normal 150-450 [facility] Comment on above: Order Comment: 109.1 Performed By: #### L 100.0100 ####[facility] [address] [place], [address] RBC (Bld) [#/Vol] 4.33 10*6/uL Low 4.6-6.2 [facility] Comment on above: Order Comment: 109.1 Performed By: #### L 100.0100 ####[facility] [address] [place], [address] RDW SD 44.3 fl High 35.1-43.9 [facility] Comment on above: Order Comment: 109.1 Performed By: #### L 100.0100 ####[facility] [address] [place], [address] WBC (Bld) [#/Vol] 7.9 10*3/uL Normal 4.4-11.0 [facility] Comment on above: Order Comment: 109.1 Performed By: #### L 100.0100 ####[facility] [address] [place], [address] Eosinophil percentageOrdered By: Renard Burgos on 12-09-2024 Eosinophils/100 WBC (Bld) 1.0 % 0-5 [facility] Erythrocyte distribution wid th ratioOrdered By: Renard Burgos on 12-09-2024 Erythrocyte distribution width (RBC) [Ratio] 13.0 % 11.6-14.6 [facility] Erythrocyte distribution wid th standard deviationOrdered By: Renard Burgos on 12-09-2024 Erythrocyte distribution width (RBC) [Ratio] 44.3 fl High 35.1-43.9 [facility] Hematocrit Auto (Bld) [Volum e fraction]Ordered By: Renard Burgos on 12-09-2024 Hematocrit (Bld) [Volume fraction] 40.3 % 40-54 [facility] Hemoglobin measurementOrdere d By: Renard Burgos on 12-09-2024 Hemoglobin (Bld) [Mass/Vol] 12.8 g/dL Low 13.0-16.5 [facility] Immature granulocytes/100 WB C Auto (Bld)Ordered By: Renard Burgos on 12-09-2024 Immature granulocytes/100 WBC (Bld) 0.400 % 0.0-0.9 [facility] Comment on above: IG% - Immature Granu locytes (promyelocytes, myelocytes and metamyelocytes) > 1% indicates that a LEFT SHIFT is Present. MCV (mean corpuscular volume ) determinationOrdered By: Renard Burgos on 12-09-2024 MCV (RBC) [Entitic vol] 93.1 fL 80-94 [facility] Mean corpuscular hemoglobin (MCH) determinationOrdered By: Renard Burgos on 12-09-2024 MCH (RBC) [Entitic mass] 29.6 pg 27.0-32.0 [facility] Mean corpuscular hemoglobin concentration (MCHC) determinationOrdered By: Renard Burgos on 12-09-2024 MCHC (RBC) [Mass/Vol] 31.8 g/dL Low 32-36 [facility] Mean platelet volume determi nationOrdered By: Renard Burgos on 12-09-2024 Platelet mean volume (Bld) [Entitic vol] 11.5 fL 6.2-12.0 [facility] Monocyte percentageOrdered B y: Renard Burgos on 12-09-2024 Monocytes/100 WBC (Bld) 7.7 % 0-10 [facility] Neutrophil percentageOrdered By: Renard Burgos on 12-09-2024 Neutrophils/100 WBC (Bld) 61.2 % 47-70 [facility] Nucleated red blood cell per centageOrdered By: Renard Burgos on 12-09-2024 Nucleated RBC/100 WBC (Bld) [Ratio] 0 % 0-5 [facility] Platelet countOrdered By: Garrick Bhatt on 12-09-2024 Platelets (Bld) [#/Vol] 194 10*3/uL 150-450 [facility] RBC Auto (Bld) [#/Vol]Ordere d By: Renard Burgos on 12-09-2024 RBC (Bld) [#/Vol] 4.33 10*6/uL Low 4.6-6.2 [facility] White blood cell (WBC) count Ordered By: Renard Burgos on 12-09-2024 WBC (Bld) [#/Vol] 7.9 10*3/uL 4.4-11.0 [facility] Absolute lymphocyte countOrd ered By: Renard Burgos on 12-02-2024 Lymphocytes Auto (Unsp spec) [#/Vol] 2.83 10*3/uL 0.83-4.51 [facility] Absolute neutrophil countOrd ered By: Renard Burgos on 12-02-2024 Neutrophils (Bld) [#/Vol] 4.7 10*3/uL 2.0-7.7 [facility] Automated lymphocyte count a s percentage of total leukocytesOrdered By: Renard Burgos on 12-02-2024 Lymphocytes/100 WBC Auto (Unsp spec) 31.3 % 19-41 [facility] Basophil percentageOrdered B y: Renard Burgos on 12-02-2024 Basophils/100 WBC (Bld) 0.8 % 0-1 [facility] CBC W/Diff, Automatedon 08 Absolute Lymph 2.83 X10 3/uL Normal 0.83-4.51 [facility] Comment on above: Order Comment: 109.1 Performed By: #### L 100.0100 ####[facility] [address] [place], [address] Absolute Neut 4.7 X10 3/uL Normal 2.0-7.7 [facility] Comment on above: Order Comment: 109.1 Performed By: #### L 100.0100 ####[facility] [address] [place], [address] Basophils/100 WBC (Bld) 0.8 % Normal 0-1 [facility] Comment on above: Order Comment: 109.1 Performed By: #### L 100.0100 ####[facility] [address] [place], [address] Eosinophils/100 WBC (Bld) 0.9 % Normal 0-5 [facility] Comment on above: Order Comment: 109.1 Performed By: #### L 100.0100 ####[facility] [address] [place], [address] Erythrocyte distribution width (RBC) [Ratio] 13.2 % Normal 11.6-14.6 [facility] Comment on above: Order Comment: 109.1 Performed By: #### L 100.0100 ####[facility] [address] [place], [address] Hematocrit (Bld) [Volume fraction] 41.4 % Normal 40-54 [facility] Comment on above: Order Comment: 109.1 Performed By: #### L 100.0100 ####[facility] [address] [place], [address] Hemoglobin (Bld) [Mass/Vol] 13.2 g/dL Normal 13.0-16.5 [facility] Comment on above: Order Comment: 109.1 Performed By: #### L 100.0100 ####[facility] [address] [place], [address] IG% 0.300 Normal 0.0-0.9 [facility] Comment on above: Order Comment: 109.1 Result Comment: IG% - Immature Granulocytes (promyelocytes, myelocytes andmetamyelocytes) > 1% indicates that a LEFT SHIFT is Present. Performed By: #### L 100.0100 ####[facility] [address] [place], [address] Lymphocytes/100 WBC (Bld) 31.3 % Normal 19-41 [facility] Comment on above: Order Comment: 109.1 Performed By: #### L 100.0100 ####[facility] [address] [place], [address] MCH (RBC) [Entitic mass] 30.1 pg Normal 27.0-32.0 [facility] Comment on above: Order Comment: 109.1 Performed By: #### L 100.0100 ####[facility] [address] [place], [address] MCHC (RBC) [Mass/Vol] 31.9 g/dL Low 32-36 [facility] Comment on above: Order Comment: 109.1 Performed By: #### L 100.0100 ####[facility] [address] [place], [address] MCV (RBC) [Entitic vol] 94.5 fL High 80-94 [facility] Comment on above: Order Comment: 109.1 Performed By: #### L 100.0100 ####[facility] [address] [place], [address] Monocytes/100 WBC (Bld) 14.8 % High 0-10 [facility] Comment on above: Order Comment: 109.1 Performed By: #### L 100.0100 ####[facility] [address] [place], [address] Neutrophils/100 WBC (Bld) 51.9 % Normal 47-70 [facility] Comment on above: Order Comment: 109.1 Performed By: #### L 100.0100 ####[facility] [address] [place], [address] Nucleated RBC (Bld) [#/Vol] 0 10*3/uL Normal 0-5 [facility] Comment on above: Order Comment: 109.1 Performed By: #### L 100.0100 ####[facility] [address] [place], [address] Platelet mean volume (Bld) [Entitic vol] 11.2 fL Normal 6.2-12.0 [facility] Comment on above: Order Comment: 109.1 Performed By: #### L 100.0100 ####[facility] [address] [place], [address] Platelets (Bld) [#/Vol] 182 10*3/uL Normal 150-450 [facility] Comment on above: Order Comment: 109.1 Performed By: #### L 100.0100 ####[facility] [address] [place], [address] RBC (Bld) [#/Vol] 4.38 10*6/uL Low 4.6-6.2 [facility] Comment on above: Order Comment: 109.1 Performed By: #### L 100.0100 ####[facility] [address] [place], [address] RDW SD 45.5 fl High 35.1-43.9 [facility] Comment on above: Order Comment: 109.1 Performed By: #### L 100.0100 ####[facility] [address] [place], [address] WBC (Bld) [#/Vol] 9.1 10*3/uL Normal 4.4-11.0 [facility] Comment on above: Order Comment: 109.1 Performed By: #### L 100.0100 ####[facility] [address] [place], [address] Eosinophil percentageOrdered By: Renard Burgos on 12-02-2024 Eosinophils/100 WBC (Bld) 0.9 % 0-5 [facility] Erythrocyte distribution wid th ratioOrdered By: Renard Burgos on 12-02-2024 Erythrocyte distribution width (RBC) [Ratio] 13.2 % 11.6-14.6 [facility] Erythrocyte distribution wid th standard deviationOrdered By: Renard Burgos on 12-02-2024 Erythrocyte distribution width (RBC) [Ratio] 45.5 fl High 35.1-43.9 [facility] Hematocrit Auto (Bld) [Volum e fraction]Ordered By: Renard Burgos on 12-02-2024 Hematocrit (Bld) [Volume fraction] 41.4 % 40-54 [facility] Hemoglobin measurementOrdere d By: Renard Burgos on 12-02-2024 Hemoglobin (Bld) [Mass/Vol] 13.2 g/dL 13.0-16.5 [facility] Immature granulocytes/100 WB C Auto (Bld)Ordered By: Renard Burgos on 12-02-2024 Immature granulocytes/100 WBC (Bld) 0.300 % 0.0-0.9 [facility] Comment on above: IG% - Immature Granu locytes (promyelocytes, myelocytes and metamyelocytes) > 1% indicates that a LEFT SHIFT is Present. MCV (mean corpuscular volume ) determinationOrdered By: Renard Burgos on 12-02-2024 MCV (RBC) [Entitic vol] 94.5 fL High 80-94 [facility] Mean corpuscular hemoglobin (MCH) determinationOrdered By: Renard Burgos on 12-02-2024 MCH (RBC) [Entitic mass] 30.1 pg 27.0-32.0 [facility] Mean corpuscular hemoglobin concentration (MCHC) determinationOrdered By: Renard Burgos on 12-02-2024 MCHC (RBC) [Mass/Vol] 31.9 g/dL Low 32-36 [facility] Mean platelet volume determi nationOrdered By: Renard Burgos on 12-02-2024 Platelet mean volume (Bld) [Entitic vol] 11.2 fL 6.2-12.0 [facility] Monocyte percentageOrdered B y: Renard Burgos on 12-02-2024 Monocytes/100 WBC (Bld) 14.8 % High 0-10 [facility] Neutrophil percentageOrdered By: Renard Burgos on 12-02-2024 Neutrophils/100 WBC (Bld) 51.9 % 47-70 [facility] Nucleated red blood cell per centageOrdered By: Renard Burgos on 12-02-2024 Nucleated RBC/100 WBC (Bld) [Ratio] 0 % 0-5 [facility] Platelet countOrdered By: Garrick Bhatt on 12-02-2024 Platelets (Bld) [#/Vol] 182 10*3/uL 150-450 [facility] RBC Auto (Bld) [#/Vol]Ordere d By: Renard Burgos on 12-02-2024 RBC (Bld) [#/Vol] 4.38 10*6/uL Low 4.6-6.2 [facility] White blood cell (WBC) count Ordered By: Reanrd Burgos on 12-02-2024 WBC (Bld) [#/Vol] 9.1 10*3/uL 4.4-11.0 [facility] Absolute lymphocyte countOrd ered By: Renard Burgos on 11-25-2024 Lymphocytes Auto (Unsp spec) [#/Vol] 1.80 10*3/uL 0.83-4.51 [facility] Absolute neutrophil countOrd ered By: Renard Burgos on 11-25-2024 Neutrophils (Bld) [#/Vol] 7.6 10*3/uL 2.0-7.7 [facility] Automated blood erythrocyte countOrdered By: Renard Burgos on 11-25-2024 RBC (Bld) [#/Vol] 4.57 10*6/uL Low 4.6-6.2 [facility] Comment on above: Order Comment: 109-1 Performed By: #### L 100.0100 ####[facility] [address] [place], [place], [address] Automated blood hematocrit ( percentage)Ordered By: Renard Burgos on 11-25-2024 Hematocrit (Bld) [Volume fraction] 42.1 % Normal 40-54 [facility] Comment on above: Order Comment: 109-1 Performed By: #### L 100.0100 ####[facility] [address] [place], [place], [address] Automated lymphocyte count a s percentage of total leukocytesOrdered By: Renard Burgos on 11-25-2024 Lymphocytes/100 WBC Auto (Unsp spec) 17.3 % Low 19-41 [facility] Basophil percentageOrdered B y: Renard Burgos on 11-25-2024 Basophils/100 WBC (Bld) 0.4 % Normal 0-1 [facility] Comment on above: Order Comment: 109-1 Performed By: #### L 100.0100 ####[facility] [address] [place], [address] CBC W/Diff, Automatedon 10-30 Absolute Lymph 1.80 X10 3/uL Normal 0.83-4.51 [facility] Comment on above: Order Comment: 109-1 Performed By: #### L 100.0100 ####[facility] [address] [place], [address] Absolute Neut 7.6 X10 3/uL Normal 2.0-7.7 [facility] Comment on above: Order Comment: 109-1 Performed By: #### L 100.0100 ####[facility] [address] [place], [address] IG% 0.400 Normal 0.0-0.9 [facility] Comment on above: Order Comment: 109-1 Result Comment: IG% - Immature Granulocytes (promyelocytes, myelocytes andmetamyelocytes) > 1% indicates that a LEFT SHIFT is Present. Performed By: #### L 100.0100 ####[facility] [address] [place], [address] Lymphocytes/100 WBC (Bld) 17.3 % Low 19-41 [facility] Comment on above: Order Comment: 109-1 Performed By: #### L 100.0100 ####[facility] [address] [place], [address] Nucleated RBC (Bld) [#/Vol] 0 10*3/uL Normal 0-5 [facility] Comment on above: Order Comment: 109-1 Performed By: #### L 100.0100 ####[facility] [address] [place], [address] RDW SD 43.7 fl Normal 35.1-43.9 [facility] Comment on above: Order Comment: 109-1 Performed By: #### L 100.0100 ####[facility] [address] [place], [address] Eosinophil percentageOrdered By: Renard Burgos on 11-25-2024 Eosinophils/100 WBC (Bld) 0.6 % Normal 0-5 [facility] Comment on above: Order Comment: 109-1 Performed By: #### L 100.0100 ####[facility] [address] [place], [address] Erythrocyte distribution wid th ratioOrdered By: Renard Burgos on 11-25-2024 Erythrocyte distribution width (RBC) [Ratio] 12.9 % Normal 11.6-14.6 [facility] Comment on above: Order Comment: 109-1 Performed By: #### L 100.0100 ####[facility] [address] [place], [address] Erythrocyte distribution wid th standard deviationOrdered By: Renard Burgos on 11-25-2024 Erythrocyte distribution width (RBC) [Ratio] 43.7 fl 35.1-43.9 [facility] Hemoglobin measurementOrdere d By: Renard Burgos on 11-25-2024 Hemoglobin (Bld) [Mass/Vol] 13.8 g/dL Normal 13.0-16.5 [facility] Comment on above: Order Comment: 109-1 Performed By: #### L 100.0100 ####[facility] [address] [place], [address] Immature granulocytes/100 WB C Auto (Bld)Ordered By: Renard Burgos on 11-25-2024 Immature granulocytes/100 WBC (Bld) 0.400 % 0.0-0.9 [facility] Comment on above: IG% - Immature Granu locytes (promyelocytes, myelocytes and metamyelocytes) > 1% indicates that a LEFT SHIFT is Present. MCV (mean corpuscular volume ) determinationOrdered By: Renard Burgos on 11-25-2024 MCV (RBC) [Entitic vol] 92.1 fL Normal 80-94 [facility] Comment on above: Order Comment: 109-1 Performed By: #### L 100.0100 ####[facility] [address] [place], [place], [phone] Mean corpuscular hemoglobin (MCH) determinationOrdered By: Renard Burgos on 11-25-2024 MCH (RBC) [Entitic mass] 30.2 pg Normal 27.0-32.0 [facility] Comment on above: Order Comment: 109-1 Performed By: #### L 100.0100 ####[facility] [address] [place], [address] Mean corpuscular hemoglobin concentration (MCHC) determinationOrdered By: Renard Burgos on 11-25-2024 MCHC (RBC) [Mass/Vol] 32.8 g/dL Normal 32-36 [facility] Comment on above: Order Comment: 109-1 Performed By: #### L 100.0100 ####[facility] [address] [place], [address] Mean platelet volume determi nationOrdered By: Renard Burgos on 11-25-2024 Platelet mean volume (Bld) [Entitic vol] 11.7 fL Normal 6.2-12.0 [facility] Comment on above: Order Comment: 109-1 Performed By: #### L 100.0100 ####[facility] [address] [place], [place], [phone] Monocyte percentageOrdered B y: Renard Burgos on 11-25-2024 Monocytes/100 WBC (Bld) 8.6 % Normal 0-10 [facility] Comment on above: Order Comment: 109-1 Performed By: #### L 100.0100 ####[facility] [address] [place], [address] Neutrophil percentageOrdered By: Renard Burgos on 11-25-2024 Neutrophils/100 WBC (Bld) 72.7 % High 47-70 [facility] Comment on above: Order Comment: 109-1 Performed By: #### L 100.0100 ####[facility] [address] [place], [address] Nucleated red blood cell per centageOrdered By: Renard Burgos on 11-25-2024 Nucleated RBC/100 WBC (Bld) [Ratio] 0 % 0-5 [facility] Platelet countOrdered By: Garrick Bhatt on 11-25-2024 Platelets (Bld) [#/Vol] 201 10*3/uL Normal 150-450 [facility] Comment on above: Order Comment: 109-1 Performed By: #### L 100.0100 ####[facility] [address] [facility], [address] White blood cell (WBC) count Ordered By: Renard Burgos on 11-25-2024 WBC (Bld) [#/Vol] 10.4 10*3/uL Normal 4.4-11.0 [facility] Comment on above: Order Comment: 109-1 Performed By: #### L 100.0100 ####[facility] [address] [place], [place], [phone] Absolute lymphocyte countOrd ered By: Renard Burgos on 11-18-2024 Lymphocytes Auto (Unsp spec) [#/Vol] 2.56 10*3/uL 0.83-4.51 [facility] Absolute neutrophil countOrd ered By: Renard Burgos on 11-18-2024 Neutrophils (Bld) [#/Vol] 6.7 10*3/uL 2.0-7.7 [facility] Automated lymphocyte count a s percentage of total leukocytesOrdered By: Renard Burgos on 11-18-2024 Lymphocytes/100 WBC Auto (Unsp spec) 24.9 % 19-41 [facility] Basophil percentageOrdered B y: Renard Burgos on 11-18-2024 Basophils/100 WBC (Bld) 0.5 % 0-1 [facility] CBC W/Diff, Automatedon 07-2 -2024 Absolute Lymph 2.56 X10 3/uL Normal 0.83-4.51 [facility] Comment on above: Order Comment: 109.1 Performed By: #### L 100.0100 ####[facility] [address] [place], [address] Absolute Neut 6.7 X10 3/uL Normal 2.0-7.7 [facility] Comment on above: Order Comment: 109.1 Performed By: #### L 100.0100 ####[facility] [address] [place], [address] Basophils/100 WBC (Bld) 0.5 % Normal 0-1 [facility] Comment on above: Order Comment: 109.1 Performed By: #### L 100.0100 ####[facility] [address] [place], [address] Eosinophils/100 WBC (Bld) 0.8 % Normal 0-5 [facility] Comment on above: Order Comment: 109.1 Performed By: #### L 100.0100 ####[facility] [address] [place], [address] Erythrocyte distribution width (RBC) [Ratio] 13.2 % Normal 11.6-14.6 [facility] Comment on above: Order Comment: 109.1 Performed By: #### L 100.0100 ####[facility] [address] [place], [address] Hematocrit (Bld) [Volume fraction] 41.6 % Normal 40-54 [facility] Comment on above: Order Comment: 109.1 Performed By: #### L 100.0100 ####[facility] [address] [place], [address] Hemoglobin (Bld) [Mass/Vol] 13.6 g/dL Normal 13.0-16.5 [facility] Comment on above: Order Comment: 109.1 Performed By: #### L 100.0100 ####[facility] [address] [place], [address] IG% 0.400 Normal 0.0-0.9 [facility] Comment on above: Order Comment: 109.1 Result Comment: IG% - Immature Granulocytes (promyelocytes, myelocytes andmetamyelocytes) > 1% indicates that a LEFT SHIFT is Present. Performed By: #### L 100.0100 ####[facility] [address] [place], [address] Lymphocytes/100 WBC (Bld) 24.9 % Normal 19-41 [facility] [facility] Comment on above: Order Comment: 109.1 Performed By: #### L 100.0100 ####[facility] [address] [place], [address] MCH (RBC) [Entitic mass] 30.3 pg Normal 27.0-32.0 [facility] Comment on above: Order Comment: 109.1 Performed By: #### L 100.0100 ####[facility] [address] [place], [address] MCHC (RBC) [Mass/Vol] 32.7 g/dL Normal 32-36 [facility] Comment on above: Order Comment: 109.1 Performed By: #### L 100.0100 ####[facility] [address] [place], [address] MCV (RBC) [Entitic vol] 92.7 fL Normal 80-94 [facility] Comment on above: Order Comment: 109.1 Performed By: #### L 100.0100 ####[facility] [address] [place], [address] Monocytes/100 WBC (Bld) 8.9 % Normal 0-10 [facility] Comment on above: Order Comment: 109.1 Performed By: #### L 100.0100 ####[facility] [address] [place], [address] Neutrophils/100 WBC (Bld) 64.5 % Normal 47-70 [facility] Comment on above: Order Comment: 109.1 Performed By: #### L 100.0100 ####[facility] [address] [place], [address] Nucleated RBC (Bld) [#/Vol] 0 10*3/uL Normal 0-5 [facility] Comment on above: Order Comment: 109.1 Performed By: #### L 100.0100 ####[facility] [address] [place], [address] Platelet mean volume (Bld) [Entitic vol] 11.0 fL Normal 6.2-12.0 [facility] Comment on above: Order Comment: 109.1 Performed By: #### L 100.0100 ####[facility] [address] [place], [address] Platelets (Bld) [#/Vol] 177 10*3/uL Normal 150-450 [facility] Comment on above: Order Comment: 109.1 Performed By: #### L 100.0100 ####[facility] [address] [place], [address] RBC (Bld) [#/Vol] 4.49 10*6/uL Low 4.6-6.2 [facility] Comment on above: Order Comment: 109.1 Performed By: #### L 100.0100 ####[facility] [address] [place], [address] RDW SD 44.9 fl High 35.1-43.9 [facility] Comment on above: Order Comment: 109.1 Performed By: #### L 100.0100 ####[facility] [address] [place], [address] WBC (Bld) [#/Vol] 10.3 10*3/uL Normal 4.4-11.0 [facility] Comment on above: Order Comment: 109.1 Performed By: #### L 100.0100 ####[facility] [address] [place], [address] Eosinophil percentageOrdered By: Renard Burgos on 11-18-2024 Eosinophils/100 WBC (Bld) 0.8 % 0-5 [facility] Erythrocyte distribution wid th ratioOrdered By: Renard Burgos on 11-18-2024 Erythrocyte distribution width (RBC) [Ratio] 13.2 % 11.6-14.6 [facility] Erythrocyte distribution wid th standard deviationOrdered By: Renard Burgos on 11-18-2024 Erythrocyte distribution width (RBC) [Ratio] 44.9 fl High 35.1-43.9 [facility] Hematocrit Auto (Bld) [Volum e fraction]Ordered By: Renard Burgos on 11-18-2024 Hematocrit (Bld) [Volume fraction] 41.6 % 40-54 [facility] Hemoglobin measurementOrdere d By: Renard Burgos on 11-18-2024 Hemoglobin (Bld) [Mass/Vol] 13.6 g/dL 13.0-16.5 [facility] Immature granulocytes/100 WB C Auto (Bld)Ordered By: Renard Burgos on 11-18-2024 Immature granulocytes/100 WBC (Bld) 0.400 % 0.0-0.9 [facility] Comment on above: IG% - Immature Granu locytes (promyelocytes, myelocytes and metamyelocytes) > 1% indicates that a LEFT SHIFT is Present. MCV (mean corpuscular volume ) determinationOrdered By: Renard Burgos on 11-18-2024 MCV (RBC) [Entitic vol] 92.7 fL 80-94 [facility] Mean corpuscular hemoglobin (MCH) determinationOrdered By: Renard Burgos on 11-18-2024 MCH (RBC) [Entitic mass] 30.3 pg 27.0-32.0 [facility] Mean corpuscular hemoglobin concentration (MCHC) determinationOrdered By: Renard Burgos on 11-18-2024 MCHC (RBC) [Mass/Vol] 32.7 g/dL 32-36 [facility] Mean platelet volume determi nationOrdered By: Renard Burgos on 11-18-2024 Platelet mean volume (Bld) [Entitic vol] 11.0 fL 6.2-12.0 [facility] Monocyte percentageOrdered B y: Renard Burgos on 11-18-2024 Monocytes/100 WBC (Bld) 8.9 % 0-10 [facility] Neutrophil percentageOrdered By: Renard Burgos on 11-18-2024 Neutrophils/100 WBC (Bld) 64.5 % 47-70 [facility] Nucleated red blood cell per centageOrdered By: Renard Burgos on 11-18-2024 Nucleated RBC/100 WBC (Bld) [Ratio] 0 % 0-5 [facility] Platelet countOrdered By: Garrick Bhatt on 11-18-2024 Platelets (Bld) [#/Vol] 177 10*3/uL 150-450 [facility] RBC Auto (Bld) [#/Vol]Ordere d By: Renard Burgos on 11-18-2024 RBC (Bld) [#/Vol] 4.49 10*6/uL Low 4.6-6.2 [facility] White blood cell (WBC) count Ordered By: Renrad Burgos on 11-18-2024 WBC (Bld) [#/Vol] 10.3 10*3/uL 4.4-11.0 [facility] Basic Metabolic Profile (BMP )on 11-12-2024 BUN/CRE 18.8 RATIO Normal 10-20 [facility] Comment on above: Order Comment: ADDED BMP TO 11/11/24 LABS Performed By: #### L 100.0100, L500.2500 ####[facility] [address] [place], [place], [id number] Calcium [Mass/Vol] 8.2 mg/dL Normal 7.6-11.0 [facility] Comment on above: Order Comment: ADDED BMP TO 11/11/24 LABS Performed By: #### L 100.0100, L500.2500 ####[facility] [address] [place], [address] Chloride [Moles/Vol] 104 mmol/L Normal 98-108 [facility] Comment on above: Order Comment: ADDED BMP TO 11/11/24 LABS Performed By: #### L 100.0100, L500.2500 ####[facility] [address] [place], [address] CO2 [Moles/Vol] 24.9 mmol/L Normal 21.0-32.0 [facility] Comment on above: Order Comment: ADDED BMP TO 11/11/24 LABS Performed By: #### L 100.0100, L500.2500 ####[facility] [address] [place], [address] Creatinine [Mass/Vol] 0.58 mg/dL Low 0.70-1.20 [facility] Comment on above: Order Comment: ADDED BMP TO 11/11/24 LABS Performed By: #### L 100.0100, L500.2500 ####[facility] [address] [place], [address] GAP 11 Normal 5-15 [facility] Comment on above: Order Comment: ADDED BMP TO 11/11/24 LABS Performed By: #### L 100.0100, L500.2500 ####[facility] [address] [place], [address] GFR/1.73 sq M.predicted among non-blacks MDRD (S/P/Bld) [Vol rate/Area] 107 mL/min/{1.73_m2} Normal >60 [facility] Comment on above: Order Comment: ADDED BMP TO 11/11/24 LABS Result Comment: mL/m in/1.73m2 CKD-EPI Creatinine Equation (2020) Performed By: #### L 100.0100, L500.2500 ####[facility] [address] [place], [address] Glucose [Mass/Vol] 101 mg/dL High 70-99 [facility] Comment on above: Order Comment: ADDED BMP TO 11/11/24 LABS Performed By: #### L 100.0100, L500.2500 ####[facility] [address] [place], [address] Potassium [Moles/Vol] 3.9 mmol/L Normal 3.3-5.1 [facility] Comment on above: Order Comment: ADDED BMP TO 11/11/24 LABS Performed By: #### L 100.0100, L500.2500 ####[facility] [address] [place], [address] Sodium [Moles/Vol] 140 mmol/L Normal 133-145 [facility] Comment on above: Order Comment: ADDED BMP TO 11/11/24 LABS Performed By: #### L 100.0100, L500.2500 ####[facility] [address] [place], [address] Urea nitrogen [Mass/Vol] 11 mg/dL Normal 4-19 [facility] Comment on above: Order Comment: ADDED BMP TO 11/11/24 LABS Performed By: #### L 100.0100, L500.2500 ####[facility] [address] [place], [address] Absolute lymphocyte countOrd ered By: Renard Burgos on 11-11-2024 Lymphocytes Auto (Unsp spec) [#/Vol] 2.08 10*3/uL 0.83-4.51 [facility] Absolute neutrophil countOrd ered By: Renard Burgos on 11-11-2024 Neutrophils (Bld) [#/Vol] 5.2 10*3/uL 2.0-7.7 [facility] Anion gap in Serum or Plasma Ordered By: Renard Burgos on 11-11-2024 Anion gap [Moles/Vol] 11 mmol/L 5-15 [facility] Automated lymphocyte count a s percentage of total leukocytesOrdered By: Renard Burgos on 11-11-2024 Lymphocytes/100 WBC Auto (Unsp spec) 25.7 % 19- [facility] BUN/creatinine ratioOrdered By: Renard Burgos on 11-11-2024 Urea nitrogen/Creatinine [Mass ratio] 18.8 mg/mg 10- [facility] Basophil percentageOrdered B y: Renard Burgos on 11-11-2024 Basophils/100 WBC (Bld) 0.6 % 0-1 [facility] CBC W/Diff, Automatedon 10-29 Absolute Lymph 2.08 X10 3/uL Normal 0.83-4.51 [facility] Comment on above: Order Comment: 109.1 Performed By: #### L 100.0100, L500.2500 ####[facility] [address] [place], [address] Absolute Neut 5.2 X10 3/uL Normal 2.0-7.7 [facility] Comment on above: Order Comment: 109.1 Performed By: #### L 100.0100, L500.2500 ####[facility] [address] [place], [address] Basophils/100 WBC (Bld) 0.6 % Normal 0-1 [facility] Comment on above: Order Comment: 109.1 Performed By: #### L 100.0100, L500.2500 ####[facility] [address] [place], [address] Eosinophils/100 WBC (Bld) 1.0 % Normal 0-5 [facility] Comment on above: Order Comment: 109.1 Performed By: #### L 100.0100, L500.2500 ####[facility] [address] [place], [address] Erythrocyte distribution width (RBC) [Ratio] 13.2 % Normal 11.6-14.6 [facility] Comment on above: Order Comment: 109.1 Performed By: #### L 100.0100, L500.2500 ####[facility] [address] [place], [address] Hematocrit (Bld) [Volume fraction] 38.6 % Low 40-54 [facility] Comment on above: Order Comment: 109.1 Performed By: #### L 100.0100, L500.2500 ####[facility] [address] [place], [address] Hemoglobin (Bld) [Mass/Vol] 12.6 g/dL Low 13.0-16.5 [facility] Comment on above: Order Comment: 109.1 Performed By: #### L 100.0100, L500.2500 ####[facility] [address] [place], [address] IG% 0.400 Normal 0.0-0.9 [facility] Comment on above: Order Comment: 109.1 Result Comment: IG% - Immature Granulocytes (promyelocytes, myelocytes andmetamyelocytes) > 1% indicates that a LEFT SHIFT is Present. Performed By: #### L 100.0100, L500.2500 ####[facility] [address] [place], [address] Lymphocytes/100 WBC (Bld) 25.7 % Normal 19-41 [facility] Comment on above: Order Comment: 109.1 Performed By: #### L 100.0100, L500.2500 ####[facility] [address] [place], [address] MCH (RBC) [Entitic mass] 29.9 pg Normal 27.0-32.0 [facility] Comment on above: Order Comment: 109.1 Performed By: #### L 100.0100, L500.2500 ####[facility] [address] [place], [address] MCHC (RBC) [Mass/Vol] 32.6 g/dL Normal 32-36 [facility] Comment on above: Order Comment: 109.1 Performed By: #### L 100.0100, L500.2500 ####[facility] [address] [place], [address] MCV (RBC) [Entitic vol] 91.7 fL Normal 80-94 [facility] Comment on above: Order Comment: 109.1 Performed By: #### L 100.0100, L500.2500 ####[facility] [address] [place], [address] Monocytes/100 WBC (Bld) 8.3 % Normal 0-10 [facility] Comment on above: Order Comment: 109.1 Performed By: #### L 100.0100, L500.2500 ####[facility] [address] [place], [address] Neutrophils/100 WBC (Bld) 64.0 % Normal 47-70 [facility] Comment on above: Order Comment: 109.1 Performed By: #### L 100.0100, L500.2500 ####[facility] [address] [place], [address] Nucleated RBC (Bld) [#/Vol] 0 10*3/uL Normal 0-5 [facility] Comment on above: Order Comment: 109.1 Performed By: #### L 100.0100, L500.2500 ####[facility] [address] [place], [address] Platelet mean volume (Bld) [Entitic vol] 11.4 fL Normal 6.2-12.0 [facility] Comment on above: Order Comment: 109.1 Performed By: #### L 100.0100, L500.2500 ####[facility] [address] [place], [address] Platelets (Bld) [#/Vol] 220 10*3/uL Normal 150-450 [facility] Comment on above: Order Comment: 109.1 Performed By: #### L 100.0100, L500.2500 ####[facility] [address] [place], [address] RBC (Bld) [#/Vol] 4.21 10*6/uL Low 4.6-6.2 [facility] Comment on above: Order Comment: 109.1 Performed By: #### L 100.0100, L500.2500 ####[facility] [address] [place], [address] RDW SD 44.4 fl High 35.1-43.9 [facility] Comment on above: Order Comment: 109.1 Performed By: #### L 100.0100, L500.2500 ####[facility] [address] [place], [address] WBC (Bld) [#/Vol] 8.1 10*3/uL Normal 4.4-11.0 [facility] Comment on above: Order Comment: 109.1 Performed By: #### L 100.0100, L500.2500 ####[facility] [address] [place], [address] Carbon dioxide, total [Moles /volume] in Central venous bloodOrdered By: Renard Burgos on 11-11-2024 CO2 [Moles/Vol] 24.9 mmol/L 21.0-32.0 [facility] Chloride assayOrdered By: Garrick Bhatt on 11-11-2024 Chloride [Moles/Vol] 104 mmol/L 98-108 [facility] Eosinophil percentageOrdered By: Renard Burgos on 11-11-2024 Eosinophils/100 WBC (Bld) 1.0 % 0-5 [facility] Erythrocyte distribution wid th ratioOrdered By: Renard Burgos on 11-11-2024 Erythrocyte distribution width (RBC) [Ratio] 13.2 % 11.6-14.6 [facility] Erythrocyte distribution wid th standard deviationOrdered By: Renard Burgos on 11-11-2024 Erythrocyte distribution width (RBC) [Ratio] 44.4 fl High 35.1-43.9 [facility] Glomerular filtration rate ( GFR) estimation/1.73 sq m using serum, plasma, or whole bOrdered By: Renard Burgos on 11-11-2024 GFR/1.73 sq M.predicted among non-blacks MDRD (S/P/Bld) [Vol rate/Area] 107 mL/min/{1.73_m2} >60 [facility] Comment on above: mL/min/1.73m2 CKD-EP I Creatinine Equation (2020) Hematocrit Auto (Bld) [Volum e fraction]Ordered By: Renard Burgos on 11-11-2024 Hematocrit (Bld) [Volume fraction] 38.6 % Low 40-54 [facility] Hemoglobin measurementOrdere d By: Renard Burgos on 11-11-2024 Hemoglobin (Bld) [Mass/Vol] 12.6 g/dL Low 13.0-16.5 [facility] Immature granulocytes/100 WB C Auto (Bld)Ordered By: Renard Burgos on 11-11-2024 Immature granulocytes/100 WBC (Bld) 0.400 % 0.0-0.9 [facility] Comment on above: IG% - Immature Granu locytes (promyelocytes, myelocytes and metamyelocytes) > 1% indicates that a LEFT SHIFT is Present. MCV (mean corpuscular volume ) determinationOrdered By: Renard Burgos on 11-11-2024 MCV (RBC) [Entitic vol] 91.7 fL 80-94 [facility] Mean corpuscular hemoglobin (MCH) determinationOrdered By: Renard Burgos on 11-11-2024 MCH (RBC) [Entitic mass] 29.9 pg 27.0-32.0 [facility] Mean corpuscular hemoglobin concentration (MCHC) determinationOrdered By: Renard Burgos on 11-11-2024 MCHC (RBC) [Mass/Vol] 32.6 g/dL 32-36 [facility] Mean platelet volume determi nationOrdered By: Renard Burgos on 11-11-2024 Platelet mean volume (Bld) [Entitic vol] 11.4 fL 6.2-12.0 [facility] Monocyte percentageOrdered B y: Renard Burgos on 11-11-2024 Monocytes/100 WBC (Bld) 8.3 % 0-10 [facility] Neutrophil percentageOrdered By: Renard Burgos on 11-11-2024 Neutrophils/100 WBC (Bld) 64.0 % 47-70 [facility] Nucleated red blood cell per centageOrdered By: Renard Burgos on 11-11-2024 Nucleated RBC/100 WBC (Bld) [Ratio] 0 % 0-5 [facility] Platelet countOrdered By: Garrick Bhatt on 11-11-2024 Platelets (Bld) [#/Vol] 220 10*3/uL 150-450 [facility] Potassium measurement (mass/ volume)Ordered By: Renard Burgos on 11-11-2024 Potassium (Unsp spec) [Mass/Vol] 3.9 mmol/L 3.3-5.1 [facility] RBC Auto (Bld) [#/Vol]Ordere d By: Renard Burgos on 11-11-2024 RBC (Bld) [#/Vol] 4.21 10*6/uL Low 4.6-6.2 [facility] Serum creatinine measurement (mass/volume)Ordered By: Renard Burgos on 11-11-2024 Creatinine [Mass/Vol] 0.58 mg/dL Low 0.70-1.20 [facility] Serum glucose measurement (m ass/volume)Ordered By: Renard Burgos on 11-11-2024 Glucose [Mass/Vol] 101 mg/dL High 70-99 [facility] Serum or plasma calcium gordy urement (mass/volume)Ordered By: Renard Burgos on 11-11-2024 Calcium [Mass/Vol] 8.2 mg/dL 7.6-11.0 [facility] Serum or plasma urea nitroge n measurement (mass/volume)Ordered By: Renard Burgos on 11-11-2024 Urea nitrogen [Mass/Vol] 11 mg/dL 4-19 [facility] Sodium levelOrdered By: Lamine Burgos on 11-11-2024 Sodium [Moles/Vol] 140 mmol/L 133-145 [facility] White blood cell (WBC) count Ordered By: Renard Burgos on 11-11-2024 WBC (Bld) [#/Vol] 8.1 10*3/uL 4.4-11.0 [facility] Absolute lymphocyte countOrd ered By: Renard Burgos on 11-04-2024 Lymphocytes Auto (Unsp spec) [#/Vol] 2.18 10*3/uL 0.83-4.51 [facility] Absolute neutrophil countOrd ered By: Renard Burgos on 11-04-2024 Neutrophils (Bld) [#/Vol] 4.8 10*3/uL 2.0-7.7 [facility] Automated lymphocyte count a s percentage of total leukocytesOrdered By: Renard Burgos on 11-04-2024 Lymphocytes/100 WBC Auto (Unsp spec) 28.1 % 19-41 [facility] Basophil percentageOrdered B y: Renard Burgos on 11-04-2024 Basophils/100 WBC (Bld) 0.6 % 0-1 [facility] CBC W/Diff, Automatedon PLT EST A Normal ADEQ [facility] Comment on above: Order Comment: 109 Performed By: #### L 100.0100 ####[facility] [address] [place], [place], [id number] PLT MORPH CLUMPED Normal [facility] Comment on above: Order Comment: 109 Performed By: #### L 100.0100 ####[facility] [address] [place], [place], [id number] Eosinophil percentageOrdered By: Renard Burgos on 11-04-2024 Eosinophils/100 WBC (Bld) 0.8 % 0-5 [facility] Erythrocyte distribution wid th ratioOrdered By: Renard Burgos on 11-04-2024 Erythrocyte distribution width (RBC) [Ratio] 13.3 % 11.6-14.6 [facility] Erythrocyte distribution wid th standard deviationOrdered By: Renard Burgos on 11-04-2024 Erythrocyte distribution width (RBC) [Ratio] 45.0 fl High 35.1-43.9 [facility] Hematocrit Auto (Bld) [Volum e fraction]Ordered By: Renard Burgos on 11-04-2024 Hematocrit (Bld) [Volume fraction] 42.8 % 40-54 [facility] Hemoglobin measurementOrdere d By: Renard Burgos on 11-04-2024 Hemoglobin (Bld) [Mass/Vol] 14.0 g/dL 13.0-16.5 [facility] Immature granulocytes/100 WB C Auto (Bld)Ordered By: Renard Burgos on 11-04-2024 Immature granulocytes/100 WBC (Bld) 0.400 % 0.0-0.9 [facility] Comment on above: IG% - Immature Granu locytes (promyelocytes, myelocytes and metamyelocytes) > 1% indicates that a LEFT SHIFT is Present. MCV (mean corpuscular volume ) determinationOrdered By: Renard Burgos on 11-04-2024 MCV (RBC) [Entitic vol] 92.4 fL 80-94 [facility] Mean corpuscular hemoglobin (MCH) determinationOrdered By: Renard Burgos on 11-04-2024 MCH (RBC) [Entitic mass] 30.2 pg 27.0-32.0 [facility] Mean corpuscular hemoglobin concentration (MCHC) determinationOrdered By: Renard Burgos on 11-04-2024 MCHC (RBC) [Mass/Vol] 32.7 g/dL 32-36 [facility] Mean platelet volume determi nationOrdered By: Renard Burgos on 11-04-2024 Platelet mean volume (Bld) [Entitic vol] 11.6 fL 6.2-12.0 [facility] Monocyte percentageOrdered B y: Renard Burgos on 11-04-2024 Monocytes/100 WBC (Bld) 8.4 % 0-10 [facility] Neutrophil percentageOrdered By: Renard Burgos on 11-04-2024 Neutrophils/100 WBC (Bld) 61.7 % 47-70 [facility] Nucleated red blood cell per centageOrdered By: Renard Burgos on 11-04-2024 Nucleated RBC/100 WBC (Bld) [Ratio] 0 % 0-5 [facility] Platelet countOrdered By: Garrick Bhatt on 11-04-2024 Platelet count TNP [facility] Comment on above: Test not performed Platelet estimateOrdered By: Renard Burgos on 11-04-2024 Platelets LM Ql (Bld) A ADEQ [facility] Platelet morphologyOrdered B y: Renard Burgos on 11-04-2024 Platelet morphology finding Nom (Bld) CLUMPED [facility] RBC Auto (Bld) [#/Vol]Ordere d By: Renard Burgos on 11-04-2024 RBC (Bld) [#/Vol] 4.63 10*6/uL 4.6-6.2 [facility] White blood cell (WBC) count Ordered By: Renard Burgos on 11-04-2024 WBC (Bld) [#/Vol] 7.8 10*3/uL 4.4-11.0 [facility] Absolute lymphocyte countOrd ered By: Renard Burgos on 10-28-2024 Lymphocytes Auto (Unsp spec) [#/Vol] 1.72 10*3/uL 0.83-4.51 [facility] Absolute neutrophil countOrd ered By: Renard Burgos on 10-28-2024 Neutrophils (Bld) [#/Vol] 5.0 10*3/uL 2.0-7.7 [facility] Automated lymphocyte count a s percentage of total leukocytesOrdered By: Renard Burgos on 10-28-2024 Lymphocytes/100 WBC Auto (Unsp spec) 22.9 % 19-41 [facility] Basophil percentageOrdered B y: Renard Burgos on 10-28-2024 Basophils/100 WBC (Bld) 0.7 % 0-1 [facility] CBC W/Diff, Automatedon 10-01 Absolute Lymph 1.72 X10 3/uL Normal 0.83-4.51 [facility] Comment on above: Order Comment: 109-1 Performed By: #### L 100.0100 ####[facility] [address] [place], [place], [id number] Absolute Neut 5.0 X10 3/uL Normal 2.0-7.7 [facility] Comment on above: Order Comment: 109-1 Performed By: #### L 100.0100 ####[facility] [address] [place], [address] Basophils/100 WBC (Bld) 0.7 % Normal 0-1 [facility] Comment on above: Order Comment: 109-1 Performed By: #### L 100.0100 ####[facility] [address] [place], [address] Eosinophils/100 WBC (Bld) 1.2 % Normal 0-5 [facility] Comment on above: Order Comment: 109-1 Performed By: #### L 100.0100 ####[facility] [address] [place], [address] Erythrocyte distribution width (RBC) [Ratio] 13.2 % Normal 11.6-14.6 [facility] Comment on above: Order Comment: 109-1 Performed By: #### L 100.0100 ####[facility] [address] [place], [address] Hematocrit (Bld) [Volume fraction] 37.3 % Low 40-54 [facility] Comment on above: Order Comment: 109-1 Performed By: #### L 100.0100 ####[facility] [address] [place], [address] Hemoglobin (Bld) [Mass/Vol] 12.3 g/dL Low 13.0-16.5 [facility] Comment on above: Order Comment: 109-1 Performed By: #### L 100.0100 ####[facility] [address] [place], [address] IG% 0.100 Normal 0.0-0.9 [facility] Comment on above: Order Comment: 109-1 Result Comment: IG% - Immature Granulocytes (promyelocytes, myelocytes andmetamyelocytes) > 1% indicates that a LEFT SHIFT is Present. Performed By: #### L 100.0100 ####[facility] [address], [address] Lymphocytes/100 WBC (Bld) 22.9 % Normal 19-41 [facility] Comment on above: Order Comment: 109-1 Performed By: #### L 100.0100 ####[facility] [address] [place], [address] MCH (RBC) [Entitic mass] 30.1 pg Normal 27.0-32.0 [facility] Comment on above: Order Comment: 109-1 Performed By: #### L 100.0100 ####[facility] [address] [place], [address] MCHC (RBC) [Mass/Vol] 33.0 g/dL Normal 32-36 [facility] Comment on above: Order Comment: 109-1 Performed By: #### L 100.0100 ####[facility] [address] [place], [address] MCV (RBC) [Entitic vol] 91.4 fL Normal 80-94 [facility] Comment on above: Order Comment: 109-1 Performed By: #### L 100.0100 ####[facility] [address] [place], [address] Monocytes/100 WBC (Bld) 8.1 % Normal 0-10 [facility] Comment on above: Order Comment: 109-1 Performed By: #### L 100.0100 ####[facility] [address] [place], [address] Neutrophils/100 WBC (Bld) 67.0 % Normal 47-70 [facility] Comment on above: Order Comment: 109-1 Performed By: #### L 100.0100 ####[facility] [address] [place], [address] Nucleated RBC (Bld) [#/Vol] 0 10*3/uL Normal 0-5 [facility] Comment on above: Order Comment: 109-1 Performed By: #### L 100.0100 ####[facility] [address] [place], [address] Platelet mean volume (Bld) [Entitic vol] 11.3 fL Normal 6.2-12.0 [facility] Comment on above: Order Comment: 109-1 Performed By: #### L 100.0100 ####[facility] [address] [place], [address] Platelets (Bld) [#/Vol] 201 10*3/uL Normal 150-450 [facility] Comment on above: Order Comment: 109-1 Performed By: #### L 100.0100 ####[facility] [address] [place], [address] RBC (Bld) [#/Vol] 4.08 10*6/uL Low 4.6-6.2 [facility] Comment on above: Order Comment: 109-1 Performed By: #### L 100.0100 ####[facility] [address] [place], [address] RDW SD 44.0 fl High 35.1-43.9 [facility] Comment on above: Order Comment: 109-1 Performed By: #### L 100.0100 ####[facility] [address] [place], [address] WBC (Bld) [#/Vol] 7.5 10*3/uL Normal 4.4-11.0 [facility] Comment on above: Order Comment: 109-1 Performed By: #### L 100.0100 ####[facility] [address] [place], [address] Eosinophil percentageOrdered By: Renard Burgos on 10-28-2024 Eosinophils/100 WBC (Bld) 1.2 % 0-5 [facility] Erythrocyte distribution wid th ratioOrdered By: Renard Burgos on 10-28-2024 Erythrocyte distribution width (RBC) [Ratio] 13.2 % 11.6-14.6 [facility] Erythrocyte distribution wid th standard deviationOrdered By: Renard Burgos on 10-28-2024 Erythrocyte distribution width (RBC) [Ratio] 44.0 fl High 35.1-43.9 [facility] Hematocrit Auto (Bld) [Volum e fraction]Ordered By: Renard Burgos on 10-28-2024 Hematocrit (Bld) [Volume fraction] 37.3 % Low 40-54 [facility] Hemoglobin measurementOrdere d By: Renard Burgos on 10-28-2024 Hemoglobin (Bld) [Mass/Vol] 12.3 g/dL Low 13.0-16.5 [facility] Immature granulocytes/100 WB C Auto (Bld)Ordered By: Renard Burgos on 10-28-2024 Immature granulocytes/100 WBC (Bld) 0.100 % 0.0-0.9 [facility] Comment on above: IG% - Immature Granu locytes (promyelocytes, myelocytes and metamyelocytes) > 1% indicates that a LEFT SHIFT is Present. MCV (mean corpuscular volume ) determinationOrdered By: Renard Burgos on 10-28-2024 MCV (RBC) [Entitic vol] 91.4 fL 80-94 [facility] Mean corpuscular hemoglobin (MCH) determinationOrdered By: Renard Burgos on 10-28-2024 MCH (RBC) [Entitic mass] 30.1 pg 27.0-32.0 [facility] Mean corpuscular hemoglobin concentration (MCHC) determinationOrdered By: Renard Burgos on 10-28-2024 MCHC (RBC) [Mass/Vol] 33.0 g/dL 32-36 [facility] Mean platelet volume determi nationOrdered By: Renard Burgos on 10-28-2024 Platelet mean volume (Bld) [Entitic vol] 11.3 fL 6.2-12.0 [facility] Monocyte percentageOrdered B y: Renard Burgos on 10-28-2024 Monocytes/100 WBC (Bld) 8.1 % 0-10 [facility] Neutrophil percentageOrdered By: Renard Burgos on 10-28-2024 Neutrophils/100 WBC (Bld) 67.0 % 47-70 [facility] Nucleated red blood cell per centageOrdered By: Renard Burgos on 10-28-2024 Nucleated RBC/100 WBC (Bld) [Ratio] 0 % 0-5 [facility] Platelet countOrdered By: Garrick Bhatt on 10-28-2024 Platelets (Bld) [#/Vol] 201 10*3/uL 150-450 [facility] RBC Auto (Bld) [#/Vol]Ordere d By: Renard Burgos on 10-28-2024 RBC (Bld) [#/Vol] 4.08 10*6/uL Low 4.6-6.2 [facility] White blood cell (WBC) count Ordered By: Renard Burgos on 10-28-2024 WBC (Bld) [#/Vol] 7.5 10*3/uL 4.4-11.0 [facility] Absolute lymphocyte countOrd ered By: Renard Burgos on 10-21-2024 Lymphocytes Auto (Unsp spec) [#/Vol] 2.41 10*3/uL 0.83-4.51 [facility] Absolute neutrophil countOrd ered By: Renard Burgos on 10-21-2024 Neutrophils (Bld) [#/Vol] 5.2 10*3/uL 2.0-7.7 [facility] Automated lymphocyte count a s percentage of total leukocytesOrdered By: Renard Burgos on 10-21-2024 Lymphocytes/100 WBC Auto (Unsp spec) 28.2 % 19-41 [facility] Basophil percentageOrdered B y: Renard Burgos on 10-21-2024 Basophils/100 WBC (Bld) 0.6 % 0-1 [facility] CBC W/Diff, Automatedon 09-30 Absolute Lymph 2.41 X10 3/uL Normal 0.83-4.51 [facility] Comment on above: Order Comment: 109 Performed By: #### L 100.0100 ####[facility] [address] [place], [address] Absolute Neut 5.2 X10 3/uL Normal 2.0-7.7 [facility] Comment on above: Order Comment: 109 Performed By: #### L 100.0100 ####[facility] [address] [place], [address] Basophils/100 WBC (Bld) 0.6 % Normal 0-1 [facility] Comment on above: Order Comment: 109 Performed By: #### L 100.0100 ####[facility] [address] [place], [address] Eosinophils/100 WBC (Bld) 0.8 % Normal 0-5 [facility] Comment on above: Order Comment: 109 Performed By: #### L 100.0100 ####[facility] [address] [place], [address] Erythrocyte distribution width (RBC) [Ratio] 13.3 % Normal 11.6-14.6 [facility] Comment on above: Order Comment: 109 Performed By: #### L 100.0100 ####[facility] [address] [place], [address] Hematocrit (Bld) [Volume fraction] 38.9 % Low 40-54 [facility] Comment on above: Order Comment: 109 Performed By: #### L 100.0100 ####[facility] [address] [place], [address] Hemoglobin (Bld) [Mass/Vol] 12.8 g/dL Low 13.0-16.5 [facility] Comment on above: Order Comment: 109 Performed By: #### L 100.0100 ####[facility] [address] [place], [address] IG% 0.400 Normal 0.0-0.9 [facility] Comment on above: Order Comment: 109 Result Comment: IG% - Immature Granulocytes (promyelocytes, myelocytes andmetamyelocytes) > 1% indicates that a LEFT SHIFT is Present. Performed By: #### L 100.0100 ####[facility] [address] [place], [address] Lymphocytes/100 WBC (Bld) 28.2 % Normal 19-41 [facility] Comment on above: Order Comment: 109 Performed By: #### L 100.0100 ####[facility] [address] [place], [address] MCH (RBC) [Entitic mass] 30.1 pg Normal 27.0-32.0 [facility] Comment on above: Order Comment: 109 Performed By: #### L 100.0100 ####[facility] [address] [place], [address] MCHC (RBC) [Mass/Vol] 32.9 g/dL Normal 32-36 [facility] Comment on above: Order Comment: 109 Performed By: #### L 100.0100 ####[facility] [address] [place], [address] MCV (RBC) [Entitic vol] 91.5 fL Normal 80-94 [facility] Comment on above: Order Comment: 109 Performed By: #### L 100.0100 ####[facility] [address] [place], [address] Monocytes/100 WBC (Bld) 9.1 % Normal 0-10 [facility] Comment on above: Order Comment: 109 Performed By: #### L 100.0100 ####[facility] [address] [place], [address] Neutrophils/100 WBC (Bld) 60.9 % Normal 47-70 [facility] Comment on above: Order Comment: 109 Performed By: #### L 100.0100 ####[facility] [address] [place], [address] Nucleated RBC (Bld) [#/Vol] 0 10*3/uL Normal 0-5 [facility] Comment on above: Order Comment: 109 Performed By: #### L 100.0100 ####[facility] [address] [place], [address] Platelet mean volume (Bld) [Entitic vol] 11.2 fL Normal 6.2-12.0 [facility] Comment on above: Order Comment: 109 Performed By: #### L 100.0100 ####[facility] [address] [place], [address] Platelets (Bld) [#/Vol] 204 10*3/uL Normal 150-450 [facility] Comment on above: Order Comment: 109 Performed By: #### L 100.0100 ####[facility] [address] [place], [address] RBC (Bld) [#/Vol] 4.25 10*6/uL Low 4.6-6.2 [facility] Comment on above: Order Comment: 109 Performed By: #### L 100.0100 ####[facility] [address] [place], [address] RDW SD 44.5 fl High 35.1-43.9 [facility] Comment on above: Order Comment: 109 Performed By: #### L 100.0100 ####[facility] [address] [place], [address] WBC (Bld) [#/Vol] 8.5 10*3/uL Normal 4.4-11.0 [facility] Comment on above: Order Comment: 109 Performed By: #### L 100.0100 ####[facility] [address] [place], [address] Eosinophil percentageOrdered By: Renard Burgos on 10-21-2024 Eosinophils/100 WBC (Bld) 0.8 % 0-5 [facility] Erythrocyte distribution wid th ratioOrdered By: Renard Burgos on 10-21-2024 Erythrocyte distribution width (RBC) [Ratio] 13.3 % 11.6-14.6 [facility] Erythrocyte distribution wid th standard deviationOrdered By: Renard Burgos on 10-21-2024 Erythrocyte distribution width (RBC) [Ratio] 44.5 fl High 35.1-43.9 [facility] Hematocrit Auto (Bld) [Volum e fraction]Ordered By: Renard Burgos on 10-21-2024 Hematocrit (Bld) [Volume fraction] 38.9 % Low 40-54 [facility] Hemoglobin measurementOrdere d By: Renard Burgos on 10-21-2024 Hemoglobin (Bld) [Mass/Vol] 12.8 g/dL Low 13.0-16.5 [facility] Immature granulocytes/100 WB C Auto (Bld)Ordered By: Renard Burgos on 10-21-2024 Immature granulocytes/100 WBC (Bld) 0.400 % 0.0-0.9 [facility] Comment on above: IG% - Immature Granu locytes (promyelocytes, myelocytes and metamyelocytes) > 1% indicates that a LEFT SHIFT is Present. MCV (mean corpuscular volume ) determinationOrdered By: Renard Burgos on 10-21-2024 MCV (RBC) [Entitic vol] 91.5 fL 80-94 [facility] Mean corpuscular hemoglobin (MCH) determinationOrdered By: Renard Burgos on 10-21-2024 MCH (RBC) [Entitic mass] 30.1 pg 27.0-32.0 [facility] Mean corpuscular hemoglobin concentration (MCHC) determinationOrdered By: Renard Burgos on 10-21-2024 MCHC (RBC) [Mass/Vol] 32.9 g/dL 32-36 [facility] Mean platelet volume determi nationOrdered By: Renard Burgos on 10-21-2024 Platelet mean volume (Bld) [Entitic vol] 11.2 fL 6.2-12.0 [facility] Monocyte percentageOrdered B y: Renard Burgos on 10-21-2024 Monocytes/100 WBC (Bld) 9.1 % 0-10 [facility] Neutrophil percentageOrdered By: Renard Burgos on 10-21-2024 Neutrophils/100 WBC (Bld) 60.9 % 47-70 [facility] Nucleated red blood cell per centageOrdered By: Renard Burgos on 10-21-2024 Nucleated RBC/100 WBC (Bld) [Ratio] 0 % 0-5 [facility] Platelet countOrdered By: Garrick Bhatt on 10-21-2024 Platelets (Bld) [#/Vol] 204 10*3/uL 150-450 [facility] RBC Auto (Bld) [#/Vol]Ordere d By: Renard Burgos on 10-21-2024 RBC (Bld) [#/Vol] 4.25 10*6/uL Low 4.6-6.2 [facility] White blood cell (WBC) count Ordered By: Renard Burgos on 10-21-2024 WBC (Bld) [#/Vol] 8.5 10*3/uL 4.4-11.0 [facility] Absolute lymphocyte countOrd ered By: Renard Burgos on 10-14-2024 Lymphocytes Auto (Unsp spec) [#/Vol] 1.77 10*3/uL 0.83-4.51 [facility] Absolute neutrophil countOrd ered By: Renard Burgos on 10-14-2024 Neutrophils (Bld) [#/Vol] 4.8 10*3/uL 2.0-7.7 [facility] Automated lymphocyte count a s percentage of total leukocytesOrdered By: Renard Burgos on 10-14-2024 Lymphocytes/100 WBC Auto (Unsp spec) 24.2 % 19-41 [facility] Basophil percentageOrdered B y: Renard Burgos on 10-14-2024 Basophils/100 WBC (Bld) 0.7 % 0-1 [facility] CBC W/Diff, Automatedon 09-29 Absolute Lymph 1.77 X10 3/uL Normal 0.83-4.51 [facility] Comment on above: Order Comment: 109 Performed By: #### L 100.0100 ####[facility] [address] [place], [address] Absolute Neut 4.8 X10 3/uL Normal 2.0-7.7 [facility] Comment on above: Order Comment: 109 Performed By: #### L 100.0100 ####[facility] [address] [place], [address] Basophils/100 WBC (Bld) 0.7 % Normal 0-1 [facility] Comment on above: Order Comment: 109 Performed By: #### L 100.0100 ####[facility] [address] [place], [address] Eosinophils/100 WBC (Bld) 0.8 % Normal 0-5 [facility] Comment on above: Order Comment: 109 Performed By: #### L 100.0100 ####[facility] [address] [place], [address] Erythrocyte distribution width (RBC) [Ratio] 13.2 % Normal 11.6-14.6 [facility] Comment on above: Order Comment: 109 Performed By: #### L 100.0100 ####[facility] [address] [place], [address] Hematocrit (Bld) [Volume fraction] 42.7 % Normal 40-54 [facility] Comment on above: Order Comment: 109 Performed By: #### L 100.0100 ####[facility] [address] [place], [address] Hemoglobin (Bld) [Mass/Vol] 13.9 g/dL Normal 13.0-16.5 [facility] Comment on above: Order Comment: 109 Performed By: #### L 100.0100 ####[facility] [address] [place], [address] IG% 0.300 Normal 0.0-0.9 [facility] Comment on above: Order Comment: 109 Result Comment: IG% - Immature Granulocytes (promyelocytes, myelocytes andmetamyelocytes) > 1% indicates that a LEFT SHIFT is Present. Performed By: #### L 100.0100 ####[facility] [address] [place], [address] Lymphocytes/100 WBC (Bld) 24.2 % Normal 19-41 [facility] Comment on above: Order Comment: 109 Performed By: #### L 100.0100 ####[facility] [address] [place], [address] MCH (RBC) [Entitic mass] 29.7 pg Normal 27.0-32.0 [facility] Comment on above: Order Comment: 109 Performed By: #### L 100.0100 ####[facility] [address] [place], [address] MCHC (RBC) [Mass/Vol] 32.6 g/dL Normal 32-36 [facility] Comment on above: Order Comment: 109 Performed By: #### L 100.0100 ####[facility] [address] [place], [address] MCV (RBC) [Entitic vol] 91.2 fL Normal 80-94 [facility] Comment on above: Order Comment: 109 Performed By: #### L 100.0100 ####[facility] [address] [place], [address] Monocytes/100 WBC (Bld) 8.6 % Normal 0-10 [facility] Comment on above: Order Comment: 109 Performed By: #### L 100.0100 ####[facility] [address] [place], [address] Neutrophils/100 WBC (Bld) 65.4 % Normal 47-70 [facility] Comment on above: Order Comment: 109 Performed By: #### L 100.0100 ####[facility] [address] [place], [address] Nucleated RBC (Bld) [#/Vol] 0 10*3/uL Normal 0-5 [facility] Comment on above: Order Comment: 109 Performed By: #### L 100.0100 ####[facility] [address] [place], [address] Platelet mean volume (Bld) [Entitic vol] 11.1 fL Normal 6.2-12.0 [facility] Comment on above: Order Comment: 109 Performed By: #### L 100.0100 ####[facility] [address] [place], [address] Platelets (Bld) [#/Vol] 232 10*3/uL Normal 150-450 [facility] Comment on above: Order Comment: 109 Performed By: #### L 100.0100 ####[facility] [address] [place], [address] RBC (Bld) [#/Vol] 4.68 10*6/uL Normal 4.6-6.2 [facility] Comment on above: Order Comment: 109 Performed By: #### L 100.0100 ####[facility] [address] [place], [address] RDW SD 44.1 fl High 35.1-43.9 [facility] Comment on above: Order Comment: 109 Performed By: #### L 100.0100 ####[facility] [address] [place], [address] WBC (Bld) [#/Vol] 7.3 10*3/uL Normal 4.4-11.0 [facility] Comment on above: Order Comment: 109 Performed By: #### L 100.0100 ####[facility] [address] [place], [address] Eosinophil percentageOrdered By: Renard Burgos on 10-14-2024 Eosinophils/100 WBC (Bld) 0.8 % 0-5 [facility] Erythrocyte distribution wid th ratioOrdered By: Renard Burgos on 10-14-2024 Erythrocyte distribution width (RBC) [Ratio] 13.2 % 11.6-14.6 [facility] Erythrocyte distribution wid th standard deviationOrdered By: Renard Burgos on 10-14-2024 Erythrocyte distribution width (RBC) [Ratio] 44.1 fl High 35.1-43.9 [facility] Hematocrit Auto (Bld) [Volum e fraction]Ordered By: Renard Burgos on 10-14-2024 Hematocrit (Bld) [Volume fraction] 42.7 % 40-54 [facility] Hemoglobin measurementOrdere d By: Renard Burgos on 10-14-2024 Hemoglobin (Bld) [Mass/Vol] 13.9 g/dL 13.0-16.5 [facility] Immature granulocytes/100 WB C Auto (Bld)Ordered By: Renard Burgos on 10-14-2024 Immature granulocytes/100 WBC (Bld) 0.300 % 0.0-0.9 [facility] Comment on above: IG% - Immature Granu locytes (promyelocytes, myelocytes and metamyelocytes) > 1% indicates that a LEFT SHIFT is Present. MCV (mean corpuscular volume ) determinationOrdered By: Renard Burgos on 10-14-2024 MCV (RBC) [Entitic vol] 91.2 fL 80-94 [facility] Mean corpuscular hemoglobin (MCH) determinationOrdered By: Renard Burgos on 10-14-2024 MCH (RBC) [Entitic mass] 29.7 pg 27.0-32.0 [facility] Mean corpuscular hemoglobin concentration (MCHC) determinationOrdered By: Renard Burgos on 10-14-2024 MCHC (RBC) [Mass/Vol] 32.6 g/dL 32-36 [facility] Mean platelet volume determi nationOrdered By: Renard Burgos on 10-14-2024 Platelet mean volume (Bld) [Entitic vol] 11.1 fL 6.2-12.0 [facility] Monocyte percentageOrdered B y: Renard Burgos on 10-14-2024 Monocytes/100 WBC (Bld) 8.6 % 0-10 [facility] Neutrophil percentageOrdered By: Renard Burgos on 10-14-2024 Neutrophils/100 WBC (Bld) 65.4 % 47-70 [facility] Nucleated red blood cell per centageOrdered By: Renard Burgos on 10-14-2024 Nucleated RBC/100 WBC (Bld) [Ratio] 0 % 0-5 [facility] Platelet countOrdered By: Garrick Bhatt on 10-14-2024 Platelets (Bld) [#/Vol] 232 10*3/uL 150-450 [facility] RBC Auto (Bld) [#/Vol]Ordere d By: Renard Burgos on 10-14-2024 RBC (Bld) [#/Vol] 4.68 10*6/uL 4.6-6.2 [facility] White blood cell (WBC) count Ordered By: Renard Burgos on 10-14-2024 WBC (Bld) [#/Vol] 7.3 10*3/uL 4.4-11.0 [facility] Absolute lymphocyte countOrd ered By: Renard Burgos on 10-07-2024 Lymphocytes Auto (Unsp spec) [#/Vol] 2.20 10*3/uL 0.83-4.51 [facility] Absolute neutrophil countOrd ered By: Renard Burgos on 10-07-2024 Neutrophils (Bld) [#/Vol] 5.1 10*3/uL 2.0-7.7 [facility] Automated lymphocyte count a s percentage of total leukocytesOrdered By: Renard Burgos on 10-07-2024 Lymphocytes/100 WBC Auto (Unsp spec) 27.2 % 19-41 [facility] Basophil percentageOrdered B y: Renard Burgos on 10-07-2024 Basophils/100 WBC (Bld) 0.5 % 0-1 [facility] CBC W/Diff, Automatedon Absolute Lymph 2.20 X10 3/uL Normal 0.83-4.51 [facility] Comment on above: Order Comment: 109-1 Performed By: #### L 100.0100 ####[facility] [address] [place], [address] Absolute Neut 5.1 X10 3/uL Normal 2.0-7.7 [facility] Comment on above: Order Comment: 109-1 Performed By: #### L 100.0100 ####[facility] [address] [place], [address] Basophils/100 WBC (Bld) 0.5 % Normal 0-1 [facility] Comment on above: Order Comment: 109-1 Performed By: #### L 100.0100 ####[facility] [address] [place], [address] Eosinophils/100 WBC (Bld) 0.9 % Normal 0-5 [facility] Comment on above: Order Comment: 109-1 Performed By: #### L 100.0100 ####[facility] [address] [place], [address] Erythrocyte distribution width (RBC) [Ratio] 13.2 % Normal 11.6-14.6 [facility] Comment on above: Order Comment: 109-1 Performed By: #### L 100.0100 ####[facility] [address] [place], [address] Hematocrit (Bld) [Volume fraction] 40.8 % Normal 40-54 [facility] Comment on above: Order Comment: 109-1 Performed By: #### L 100.0100 ####[facility] [address] [place], [address] Hemoglobin (Bld) [Mass/Vol] 13.8 g/dL Normal 13.0-16.5 [facility] Comment on above: Order Comment: 109-1 Performed By: #### L 100.0100 ####[facility] [address] [place], [address] IG% 0.200 Normal 0.0-0.9 [facility] Comment on above: Order Comment: 109-1 Result Comment: IG% - Immature Granulocytes (promyelocytes, myelocytes andmetamyelocytes) > 1% indicates that a LEFT SHIFT is Present. Performed By: #### L 100.0100 ####[facility] [address] [place], [address] Lymphocytes/100 WBC (Bld) 27.2 % Normal 19-41 [facility] Comment on above: Order Comment: 109-1 Performed By: #### L 100.0100 ####[facility] [address] [place], [address] MCH (RBC) [Entitic mass] 30.0 pg Normal 27.0-32.0 [facility] Comment on above: Order Comment: 109-1 Performed By: #### L 100.0100 ####[facility] [address] [place], [address] MCHC (RBC) [Mass/Vol] 33.8 g/dL Normal 32-36 [facility] Comment on above: Order Comment: 109-1 Performed By: #### L 100.0100 ####[facility] [address] [place], [address] MCV (RBC) [Entitic vol] 88.7 fL Normal 80-94 [facility] Comment on above: Order Comment: 109-1 Performed By: #### L 100.0100 ####[facility] [address] [place], [address] Monocytes/100 WBC (Bld) 8.4 % Normal 0-10 [facility] Comment on above: Order Comment: 109-1 Performed By: #### L 100.0100 ####[facility] [address] [place], [address] Neutrophils/100 WBC (Bld) 62.8 % Normal 47-70 [facility] Comment on above: Order Comment: 109-1 Performed By: #### L 100.0100 ####[facility] [address] [place], [address] Nucleated RBC (Bld) [#/Vol] 0 10*3/uL Normal 0-5 [facility] Comment on above: Order Comment: 109-1 Performed By: #### L 100.0100 ####[facility] [address] [place], [address] Platelet mean volume (Bld) [Entitic vol] 11.2 fL Normal 6.2-12.0 [facility] Comment on above: Order Comment: 109-1 Performed By: #### L 100.0100 ####[facility] [address] [place], [address] Platelets (Bld) [#/Vol] 214 10*3/uL Normal 150-450 [facility] Comment on above: Order Comment: 109-1 Performed By: #### L 100.0100 ####[facility] [address] [place], [address] RBC (Bld) [#/Vol] 4.60 10*6/uL Normal 4.6-6.2 [facility] Comment on above: Order Comment: 109-1 Performed By: #### L 100.0100 ####[facility] [address] [place], [address] RDW SD 43.0 fl Normal 35.1-43.9 [facility] Comment on above: Order Comment: 109-1 Performed By: #### L 100.0100 ####[facility] [address] [place], [address] WBC (Bld) [#/Vol] 8.1 10*3/uL Normal 4.4-11.0 [facility] Comment on above: Order Comment: 109-1 Performed By: #### L 100.0100 ####[facility] [address] [place], [address] Eosinophil percentageOrdered By: Renard Burgos on 10-07-2024 Eosinophils/100 WBC (Bld) 0.9 % 0-5 [facility] Erythrocyte distribution wid th ratioOrdered By: Renard Burgos on 10-07-2024 Erythrocyte distribution width (RBC) [Ratio] 13.2 % 11.6-14.6 [facility] Erythrocyte distribution wid th standard deviationOrdered By: Renard Burgos on 10-07-2024 Erythrocyte distribution width (RBC) [Ratio] 43.0 fl 35.1-43.9 [facility] Hematocrit Auto (Bld) [Volum e fraction]Ordered By: Renard Burgos on 10-07-2024 Hematocrit (Bld) [Volume fraction] 40.8 % 40-54 [facility] Hemoglobin measurementOrdere d By: Renard Burgos on 10-07-2024 Hemoglobin (Bld) [Mass/Vol] 13.8 g/dL 13.0-16.5 [facility] Immature granulocytes/100 WB C Auto (Bld)Ordered By: Renard Burgos on 10-07-2024 Immature granulocytes/100 WBC (Bld) 0.200 % 0.0-0.9 [facility] Comment on above: IG% - Immature Granu locytes (promyelocytes, myelocytes and metamyelocytes) > 1% indicates that a LEFT SHIFT is Present. MCV (mean corpuscular volume ) determinationOrdered By: Renard Burgos on 10-07-2024 MCV (RBC) [Entitic vol] 88.7 fL 80-94 [facility] Mean corpuscular hemoglobin (MCH) determinationOrdered By: Renard Burgos on 10-07-2024 MCH (RBC) [Entitic mass] 30.0 pg 27.0-32.0 [facility] Mean corpuscular hemoglobin concentration (MCHC) determinationOrdered By: Renard Burgos on 10-07-2024 MCHC (RBC) [Mass/Vol] 33.8 g/dL 32-36 [facility] Mean platelet volume determi nationOrdered By: Renard Burgos on 10-07-2024 Platelet mean volume (Bld) [Entitic vol] 11.2 fL 6.2-12.0 [facility] Monocyte percentageOrdered B y: Renard Burgos on 10-07-2024 Monocytes/100 WBC (Bld) 8.4 % 0-10 [facility] Neutrophil percentageOrdered By: Renard Burgos on 10-07-2024 Neutrophils/100 WBC (Bld) 62.8 % 47-70 [facility] Nucleated red blood cell per centageOrdered By: Renard Burgos on 10-07-2024 Nucleated RBC/100 WBC (Bld) [Ratio] 0 % 0-5 [facility] Platelet countOrdered By: Garrick Bhatt on 10-07-2024 Platelets (Bld) [#/Vol] 214 10*3/uL 150-450 [facility] RBC Auto (Bld) [#/Vol]Ordere d By: Renard Burgos on 10-07-2024 RBC (Bld) [#/Vol] 4.60 10*6/uL 4.6-6.2 [facility] White blood cell (WBC) count Ordered By: Renard Burgos on 10-07-2024 WBC (Bld) [#/Vol] 8.1 10*3/uL 4.4-11.0 [facility] Absolute lymphocyte countOrd ered By: Renard Burgos on 09-30-2024 Lymphocytes Auto (Unsp spec) [#/Vol] 3.13 10*3/uL 0.83-4.51 [facility] Absolute neutrophil countOrd ered By: Renard Burgos on 09-30-2024 Neutrophils (Bld) [#/Vol] 5.6 10*3/uL 2.0-7.7 [facility] Automated lymphocyte count a s percentage of total leukocytesOrdered By: Renard Burgos on 09-30-2024 Lymphocytes/100 WBC Auto (Unsp spec) 31.7 % 19-41 [facility] Basophil percentageOrdered B y: Renard Burgos on 09-30-2024 Basophils/100 WBC (Bld) 0.6 % 0-1 [facility] CBC W/Diff, Automatedon Absolute Lymph 3.13 X10 3/uL Normal 0.83-4.51 [facility] Comment on above: Order Comment: 109-1 Performed By: #### L 100.0100 ####[facility] [address] [place], [address] Absolute Neut 5.6 X10 3/uL Normal 2.0-7.7 [facility] Comment on above: Order Comment: 109-1 Performed By: #### L 100.0100 ####[facility] [address] [place], [address] Basophils/100 WBC (Bld) 0.6 % Normal 0-1 [facility] Comment on above: Order Comment: 109-1 Performed By: #### L 100.0100 ####[facility] [address] [place], [address] Eosinophils/100 WBC (Bld) 0.7 % Normal 0-5 [facility] Comment on above: Order Comment: 109-1 Performed By: #### L 100.0100 ####[facility] [address] [place], [address] Erythrocyte distribution width (RBC) [Ratio] 13.0 % Normal 11.6-14.6 [facility] Comment on above: Order Comment: 109-1 Performed By: #### L 100.0100 ####[facility] [address] [place], [address] Hematocrit (Bld) [Volume fraction] 46.9 % Normal 40-54 [facility] Comment on above: Order Comment: 109-1 Performed By: #### L 100.0100 ####[facility] [address] [place], [address] Hemoglobin (Bld) [Mass/Vol] 15.3 g/dL Normal 13.0-16.5 [facility] Comment on above: Order Comment: 109-1 Performed By: #### L 100.0100 ####[facility] [address] [place], [address] IG% 0.300 Normal 0.0-0.9 [facility] Comment on above: Order Comment: 109-1 Result Comment: IG% - Immature Granulocytes (promyelocytes, myelocytes andmetamyelocytes) > 1% indicates that a LEFT SHIFT is Present. Performed By: #### L 100.0100 ####[facility] [address] [place], [address] Lymphocytes/100 WBC (Bld) 31.7 % Normal 19-41 [facility] Comment on above: Order Comment: 109-1 Performed By: #### L 100.0100 ####[facility] [address] [place], [address] MCH (RBC) [Entitic mass] 29.7 pg Normal 27.0-32.0 [facility] Comment on above: Order Comment: 109-1 Performed By: #### L 100.0100 ####[facility] [address] [place], [address] MCHC (RBC) [Mass/Vol] 32.6 g/dL Normal 32-36 [facility] Comment on above: Order Comment: 109-1 Performed By: #### L 100.0100 ####[facility] [address] [place], [address] MCV (RBC) [Entitic vol] 91.1 fL Normal 80-94 [facility] Comment on above: Order Comment: 109-1 Performed By: #### L 100.0100 ####[facility] [address] [place], [address] Monocytes/100 WBC (Bld) 10.4 % High 0-10 [facility] Comment on above: Order Comment: 109-1 Performed By: #### L 100.0100 ####[facility] [address] [place], [address] Neutrophils/100 WBC (Bld) 56.3 % Normal 47-70 [facility] Comment on above: Order Comment: 109-1 Performed By: #### L 100.0100 ####[facility] [address] [place], [address] Nucleated RBC (Bld) [#/Vol] 0 10*3/uL Normal 0-5 [facility] Comment on above: Order Comment: 109-1 Performed By: #### L 100.0100 ####[facility] [address] [place], [address] Platelet mean volume (Bld) [Entitic vol] 11.7 fL Normal 6.2-12.0 [facility] Comment on above: Order Comment: 109-1 Performed By: #### L 100.0100 ####[facility] [address] [place], [address] Platelets (Bld) [#/Vol] 208 10*3/uL Normal 150-450 [facility] Comment on above: Order Comment: 109-1 Performed By: #### L 100.0100 ####[facility] [address] [place], [address] RBC (Bld) [#/Vol] 5.15 10*6/uL Normal 4.6-6.2 [facility] Comment on above: Order Comment: 109-1 Performed By: #### L 100.0100 ####[facility] [address] [place], [address] RDW SD 42.7 fl Normal 35.1-43.9 [facility] Comment on above: Order Comment: 109-1 Performed By: #### L 100.0100 ####[facility] [address] [place], [address] WBC (Bld) [#/Vol] 9.9 10*3/uL Normal 4.4-11.0 [facility] Comment on above: Order Comment: 109-1 Performed By: #### L 100.0100 ####[facility] [address] [place], [address] Eosinophil percentageOrdered By: Renard Burgos on 09-30-2024 Eosinophils/100 WBC (Bld) 0.7 % 0-5 [facility] Erythrocyte distribution wid th ratioOrdered By: Renard Burgos on 09-30-2024 Erythrocyte distribution width (RBC) [Ratio] 13.0 % 11.6-14.6 [facility] Erythrocyte distribution wid th standard deviationOrdered By: Renard Burgos on 09-30-2024 Erythrocyte distribution width (RBC) [Ratio] 42.7 fl 35.1-43.9 [facility] Hematocrit Auto (Bld) [Volum e fraction]Ordered By: Renard Burgos on 09-30-2024 Hematocrit (Bld) [Volume fraction] 46.9 % 40-54 [facility] Hemoglobin measurementOrdere d By: Renard Burgos on 09-30-2024 Hemoglobin (Bld) [Mass/Vol] 15.3 g/dL 13.0-16.5 [facility] Immature granulocytes/100 WB C Auto (Bld)Ordered By: Renard Burgos on 09-30-2024 Immature granulocytes/100 WBC (Bld) 0.300 % 0.0-0.9 [facility] Comment on above: IG% - Immature Granu locytes (promyelocytes, myelocytes and metamyelocytes) > 1% indicates that a LEFT SHIFT is Present. MCV (mean corpuscular volume ) determinationOrdered By: Renard Burgos on 09-30-2024 MCV (RBC) [Entitic vol] 91.1 fL 80-94 [facility] Mean corpuscular hemoglobin (MCH) determinationOrdered By: Renard Burgos on 09-30-2024 MCH (RBC) [Entitic mass] 29.7 pg 27.0-32.0 [facility] Mean corpuscular hemoglobin concentration (MCHC) determinationOrdered By: Renard Burgos on 09-30-2024 MCHC (RBC) [Mass/Vol] 32.6 g/dL 32-36 [facility] Mean platelet volume determi nationOrdered By: Renard Burgos on 09-30-2024 Platelet mean volume (Bld) [Entitic vol] 11.7 fL 6.2-12.0 [facility] Monocyte percentageOrdered B y: Renard Burgos on 09-30-2024 Monocytes/100 WBC (Bld) 10.4 % High 0-10 [facility] Neutrophil percentageOrdered By: Renard Burgos on 09-30-2024 Neutrophils/100 WBC (Bld) 56.3 % 47-70 [facility] Nucleated red blood cell per centageOrdered By: Renard Burgos on 09-30-2024 Nucleated RBC/100 WBC (Bld) [Ratio] 0 % 0-5 [facility] Platelet countOrdered By: Garrick Bhatt on 09-30-2024 Platelets (Bld) [#/Vol] 208 10*3/uL 150-450 [facility] RBC Auto (Bld) [#/Vol]Ordere d By: Renard Burgos on 09-30-2024 RBC (Bld) [#/Vol] 5.15 10*6/uL 4.6-6.2 [facility] White blood cell (WBC) count Ordered By: Renard Burgos on 09-30-2024 WBC (Bld) [#/Vol] 9.9 10*3/uL 4.4-11.0 [facility] Absolute lymphocyte countOrd ered By: Renard Burgos on 09-24-2024 Lymphocytes Auto (Unsp spec) [#/Vol] 1.97 10*3/uL 0.83-4.51 [facility] Absolute neutrophil countOrd ered By: Renard Burgos on 09-24-2024 Neutrophils (Bld) [#/Vol] 6.8 10*3/uL 2.0-7.7 [facility] Automated blood erythrocyte countOrdered By: Renard Burgos on 09-24-2024 RBC (Bld) [#/Vol] 4.48 10*6/uL Low 4.6-6.2 [facility] Comment on above: Order Comment: 109 Performed By: #### L 100.0100 ####[facility] [address] [place], [place], [id number] Automated blood hematocrit ( percentage)Ordered By: Renard Burgos on 09-24-2024 Hematocrit (Bld) [Volume fraction] 40.4 % Normal 40-54 [facility] Comment on above: Order Comment: 109 Performed By: #### L 100.0100 ####[facility] [address] [place], [place], [id number] Automated lymphocyte count a s percentage of total leukocytesOrdered By: Renard Burgos on 09-24-2024 Lymphocytes/100 WBC Auto (Unsp spec) 20.5 % 19-41 [facility] Basophil percentageOrdered B y: Renard Burgos on 09-24-2024 Basophils/100 WBC (Bld) 0.5 % Normal 0-1 [facility] Comment on above: Order Comment: 109 Performed By: #### L 100.0100 ####[facility] [address] [place], [address] CBC W/Diff, Automatedon 05-2 Absolute Lymph 1.97 X10 3/uL Normal 0.83-4.51 [facility] Comment on above: Order Comment: 109 Performed By: #### L 100.0100 ####[facility] [address] [place], [address] Absolute Neut 6.8 X10 3/uL Normal 2.0-7.7 [facility] Comment on above: Order Comment: 109 Performed By: #### L 100.0100 ####[facility] [address] [place], [address] IG% 0.300 Normal 0.0-0.9 [facility] Comment on above: Order Comment: 109 Result Comment: IG% - Immature Granulocytes (promyelocytes, myelocytes andmetamyelocytes) > 1% indicates that a LEFT SHIFT is Present. Performed By: #### L 100.0100 ####[facility] [address] [place], [address] Lymphocytes/100 WBC (Bld) 20.5 % Normal 19-41 [facility] Comment on above: Order Comment: 109 Performed By: #### L 100.0100 ####[facility] [address] [place], [address] Nucleated RBC (Bld) [#/Vol] 0 10*3/uL Normal 0-5 [facility] Comment on above: Order Comment: 109 Performed By: #### L 100.0100 ####[facility] [address] [place], [address] RDW SD 42.9 fl Normal 35.1-43.9 [facility] Comment on above: Order Comment: 109 Performed By: #### L 100.0100 ####[facility] [address] [place], [place], [address] Eosinophil percentageOrdered By: Renard Burgos on 09-24-2024 Eosinophils/100 WBC (Bld) 0.5 % Normal 0-5 [facility] Comment on above: Order Comment: 109 Performed By: #### L 100.0100 ####[facility] [address] [place], [place], [address] Erythrocyte distribution wid th ratioOrdered By: Renard Burgos on 09-24-2024 Erythrocyte distribution width (RBC) [Ratio] 13.1 % Normal 11.6-14.6 [facility] Comment on above: Order Comment: 109 Performed By: #### L 100.0100 ####[facility] [address] [place], [place], [address] Erythrocyte distribution wid th standard deviationOrdered By: Renard Burgos on 09-24-2024 Erythrocyte distribution width (RBC) [Ratio] 42.9 fl 35.1-43.9 [facility] Hemoglobin measurementOrdere d By: Renard Burgos on 09-24-2024 Hemoglobin (Bld) [Mass/Vol] 13.4 g/dL Normal 13.0-16.5 [facility] Comment on above: Order Comment: 109 Performed By: #### L 100.0100 ####[facility] [address] [place], [place], [phone] Immature granulocytes/100 WB C Auto (Bld)Ordered By: Renard Burgos on 09-24-2024 Immature granulocytes/100 WBC (Bld) 0.300 % 0.0-0.9 [facility] Comment on above: IG% - Immature Granu locytes (promyelocytes, myelocytes and metamyelocytes) > 1% indicates that a LEFT SHIFT is Present. MCV (mean corpuscular volume ) determinationOrdered By: Renard Burgos on 09-24-2024 MCV (RBC) [Entitic vol] 90.2 fL Normal 80-94 [facility] Comment on above: Order Comment: 109 Performed By: #### L 100.0100 ####[facility] [address] [place], [address] Mean corpuscular hemoglobin (MCH) determinationOrdered By: Renard Burgos on 09-24-2024 MCH (RBC) [Entitic mass] 29.9 pg Normal 27.0-32.0 [facility] Comment on above: Order Comment: 109 Performed By: #### L 100.0100 ####[facility] [address] [place], [address] Mean corpuscular hemoglobin concentration (MCHC) determinationOrdered By: Renard Burgos on 09-24-2024 MCHC (RBC) [Mass/Vol] 33.2 g/dL Normal 32-36 [facility] Comment on above: Order Comment: 109 Performed By: #### L 100.0100 ####[facility] [address] [place], [address] Mean platelet volume determi nationOrdered By: Renard Burgos on 09-24-2024 Platelet mean volume (Bld) [Entitic vol] 11.3 fL Normal 6.2-12.0 [facility] Comment on above: Order Comment: 109 Performed By: #### L 100.0100 ####[facility] [address] [place], [address] Monocyte percentageOrdered B y: Renard Burgos on 09-24-2024 Monocytes/100 WBC (Bld) 7.2 % Normal 0-10 [facility] Comment on above: Order Comment: 109 Performed By: #### L 100.0100 ####[facility] [address] [place], [address] Neutrophil percentageOrdered By: Renard Burgos on 09-24-2024 Neutrophils/100 WBC (Bld) 71.0 % High 47-70 [facility] Comment on above: Order Comment: 109 Performed By: #### L 100.0100 ####[facility] [address] [place], [address] Nucleated red blood cell per centageOrdered By: Renard Burgos on 09-24-2024 Nucleated RBC/100 WBC (Bld) [Ratio] 0 % 0-5 [facility] Platelet countOrdered By: Garrick Bhatt on 09-24-2024 Platelets (Bld) [#/Vol] 187 10*3/uL Normal 150-450 [facility] Comment on above: Order Comment: 109 Performed By: #### L 100.0100 ####[facility] [address] [place], [address] White blood cell (WBC) count Ordered By: Renard Burgos on 09-24-2024 WBC (Bld) [#/Vol] 9.6 10*3/uL Normal 4.4-11.0 [facility] Comment on above: Order Comment: 109 Performed By: #### L 100.0100 ####[facility] [address] [place], [address] Absolute lymphocyte countOrd ered By: Renard Burgos on 09-16-2024 Lymphocytes Auto (Unsp spec) [#/Vol] 2.44 10*3/uL 0.83-4.51 [facility] Absolute neutrophil countOrd ered By: Renard Burgos on 09-16-2024 Neutrophils (Bld) [#/Vol] 5.5 10*3/uL 2.0-7.7 [facility] Automated lymphocyte count a s percentage of total leukocytesOrdered By: Renard Burgos on 09-16-2024 Lymphocytes/100 WBC Auto (Unsp spec) 27.7 % 19- [facility] Basophil percentageOrdered B y: Renard Burgos on 09-16-2024 Basophils/100 WBC (Bld) 0.8 % 0-1 [facility] CBC W/Diff, Automatedon 08-29 Absolute Lymph 2.44 X10 3/uL Normal 0.83-4.51 [facility] Comment on above: Order Comment: 109.1 Performed By: #### L 100.0100 ####[facility] [address] [place], [address] Absolute Neut 5.5 X10 3/uL Normal 2.0-7.7 [facility] Comment on above: Order Comment: 109.1 Performed By: #### L 100.0100 ####[facility] [address] [place], [address] Basophils/100 WBC (Bld) 0.8 % Normal 0-1 [facility] Comment on above: Order Comment: 109.1 Performed By: #### L 100.0100 ####[facility] [address] [place], [address] Eosinophils/100 WBC (Bld) 0.7 % Normal 0-5 [facility] Comment on above: Order Comment: 109.1 Performed By: #### L 100.0100 ####[facility] [address] [place], [address] Erythrocyte distribution width (RBC) [Ratio] 13.1 % Normal 11.6-14.6 [facility] Comment on above: Order Comment: 109.1 Performed By: #### L 100.0100 ####[facility] [address] [place], [address] Hematocrit (Bld) [Volume fraction] 46.8 % Normal 40-54 [facility] Comment on above: Order Comment: 109.1 Performed By: #### L 100.0100 ####[facility] [address] [place], [address] Hemoglobin (Bld) [Mass/Vol] 15.4 g/dL Normal 13.0-16.5 [facility] Comment on above: Order Comment: 109.1 Performed By: #### L 100.0100 ####[facility] [address] [place], [address] IG% 0.200 Normal 0.0-0.9 [facility] Comment on above: Order Comment: 109.1 Result Comment: IG% - Immature Granulocytes (promyelocytes, myelocytes andmetamyelocytes) > 1% indicates that a LEFT SHIFT is Present. Performed By: #### L 100.0100 ####[facility] [address] [place], [address] Lymphocytes/100 WBC (Bld) 27.7 % Normal 19-41 [facility] Comment on above: Order Comment: 109.1 Performed By: #### L 100.0100 ####[facility] [address] [place], [address] MCH (RBC) [Entitic mass] 30.1 pg Normal 27.0-32.0 [facility] Comment on above: Order Comment: 109.1 Performed By: #### L 100.0100 ####[facility] [address] [place], [address] MCHC (RBC) [Mass/Vol] 32.9 g/dL Normal 32-36 [facility] Comment on above: Order Comment: 109.1 Performed By: #### L 100.0100 ####[facility] [address] [place], [address] MCV (RBC) [Entitic vol] 91.4 fL Normal 80-94 [facility] Comment on above: Order Comment: 109.1 Performed By: #### L 100.0100 ####[facility] [address] [place], [address] Monocytes/100 WBC (Bld) 8.5 % Normal 0-10 [facility] Comment on above: Order Comment: 109.1 Performed By: #### L 100.0100 ####[facility] [address] [place], [address] Neutrophils/100 WBC (Bld) 62.1 % Normal 47-70 [facility] Comment on above: Order Comment: 109.1 Performed By: #### L 100.0100 ####[facility] [address] [place], [address] Nucleated RBC (Bld) [#/Vol] 0 10*3/uL Normal 0-5 [facility] Comment on above: Order Comment: 109.1 Performed By: #### L 100.0100 ####[facility] [address] [place], [address] Platelet mean volume (Bld) [Entitic vol] 10.6 fL Normal 6.2-12.0 [facility] Comment on above: Order Comment: 109.1 Performed By: #### L 100.0100 ####[facility] [address] [place], [address] Platelets (Bld) [#/Vol] 190 10*3/uL Normal 150-450 [facility] Comment on above: Order Comment: 109.1 Performed By: #### L 100.0100 ####[facility] [address] [place], [address] RBC (Bld) [#/Vol] 5.12 10*6/uL Normal 4.6-6.2 [facility] Comment on above: Order Comment: 109.1 Performed By: #### L 100.0100 ####[facility] [address] [place], [address] RDW SD 43.3 fl Normal 35.1-43.9 [facility] Comment on above: Order Comment: 109.1 Performed By: #### L 100.0100 ####[facility] [address] [place], [address] WBC (Bld) [#/Vol] 8.8 10*3/uL Normal 4.4-11.0 [facility] Comment on above: Order Comment: 109.1 Performed By: #### L 100.0100 ####[facility] [address] [place], [address] Eosinophil percentageOrdered By: Renard Burgos on 09-16-2024 Eosinophils/100 WBC (Bld) 0.7 % 0-5 [facility] Erythrocyte distribution wid th ratioOrdered By: Renard Burgos on 09-16-2024 Erythrocyte distribution width (RBC) [Ratio] 13.1 % 11.6-14.6 [facility] Erythrocyte distribution wid th standard deviationOrdered By: Renard Burgos on 09-16-2024 Erythrocyte distribution width (RBC) [Ratio] 43.3 fl 35.1-43.9 [facility] Hematocrit Auto (Bld) [Volum e fraction]Ordered By: Renard Burgos on 09-16-2024 Hematocrit (Bld) [Volume fraction] 46.8 % 40-54 [facility] Hemoglobin measurementOrdere d By: Renard Burgos on 09-16-2024 Hemoglobin (Bld) [Mass/Vol] 15.4 g/dL 13.0-16.5 [facility] Immature granulocytes/100 WB C Auto (Bld)Ordered By: Renard Burgos on 09-16-2024 Immature granulocytes/100 WBC (Bld) 0.200 % 0.0-0.9 [facility] Comment on above: IG% - Immature Granu locytes (promyelocytes, myelocytes and metamyelocytes) > 1% indicates that a LEFT SHIFT is Present. MCV (mean corpuscular volume ) determinationOrdered By: Renard Burgos on 09-16-2024 MCV (RBC) [Entitic vol] 91.4 fL 80-94 [facility] Mean corpuscular hemoglobin (MCH) determinationOrdered By: Renard Burgos on 09-16-2024 MCH (RBC) [Entitic mass] 30.1 pg 27.0-32.0 [facility] Mean corpuscular hemoglobin concentration (MCHC) determinationOrdered By: Renard Burgos on 09-16-2024 MCHC (RBC) [Mass/Vol] 32.9 g/dL 32-36 [facility] Mean platelet volume determi nationOrdered By: Renard Burgos on 09-16-2024 Platelet mean volume (Bld) [Entitic vol] 10.6 fL 6.2-12.0 [facility] Monocyte percentageOrdered B y: Renard Burgos on 09-16-2024 Monocytes/100 WBC (Bld) 8.5 % 0-10 [facility] Neutrophil percentageOrdered By: Renard Burgos on 09-16-2024 Neutrophils/100 WBC (Bld) 62.1 % 47-70 [facility] Nucleated red blood cell per centageOrdered By: Renard Burgos on 09-16-2024 Nucleated RBC/100 WBC (Bld) [Ratio] 0 % 0-5 [facility] Platelet countOrdered By: Garrick Bhatt on 09-16-2024 Platelets (Bld) [#/Vol] 190 10*3/uL 150-450 [facility] RBC Auto (Bld) [#/Vol]Ordere d By: Renard Burgos on 09-16-2024 RBC (Bld) [#/Vol] 5.12 10*6/uL 4.6-6.2 [facility] White blood cell (WBC) count Ordered By: Renard Burgos on 09-16-2024 WBC (Bld) [#/Vol] 8.8 10*3/uL 4.4-11.0 [facility] Anion gap in Serum or Plasma Ordered By: Renard Burgos on 09-11-2024 Anion gap [Moles/Vol] 11 mmol/L 5-15 [facility] Automated blood erythrocyte countOrdered By: Renard Burgos on 09-11-2024 RBC (Bld) [#/Vol] 4.67 10*6/uL Normal 4.6-6.2 [facility] Comment on above: Order Comment: 109-1 Performed By: #### L 100.0500, L500.2500 ####[facility] [address] [place], [address] Automated blood hematocrit ( percentage)Ordered By: Renard Burgos on 09-11-2024 Hematocrit (Bld) [Volume fraction] 42.7 % Normal 40-54 [facility] Comment on above: Order Comment: 109-1 Performed By: #### L 100.0500, L500.2500 ####[facility] [address] [place], [address] BUN/creatinine ratioOrdered By: Renard Burgos on 09-11-2024 Urea nitrogen/Creatinine [Mass ratio] 23.0 mg/mg High 10-20 [facility] Basic Metabolic Profile (BMP )on 09-11-2024 BUN/CRE 23.0 RATIO High 10-20 [facility] Comment on above: Order Comment: 109-1 Performed By: #### L 100.0500, L500.2500 ####[facility] [address] [place], [address] Calcium [Mass/Vol] 8.7 mg/dL Normal 7.6-11.0 [facility] Comment on above: Order Comment: 109-1 Performed By: #### L 100.0500, L500.2500 ####[facility] [address] [place], [address] Chloride [Moles/Vol] 104 mmol/L Normal 98-108 [facility] Comment on above: Order Comment: 109-1 Performed By: #### L 100.0500, L500.2500 ####[facility] [address] [place], [address] CO2 [Moles/Vol] 25.9 mmol/L Normal 21.0-32.0 [facility] Comment on above: Order Comment: 109-1 Performed By: #### L 100.0500, L500.2500 ####[facility] [address] [place], [address] Creatinine [Mass/Vol] 0.58 mg/dL Low 0.70-1.20 [facility] Comment on above: Order Comment: 109-1 Performed By: #### L 100.0500, L500.2500 ####[facility] [address] [place], [address] GAP 11 Normal 5-15 [facility] Comment on above: Order Comment: 109-1 Performed By: #### L 100.0500, L500.2500 ####[facility] [address] [place], [address] GFR/1.73 sq M.predicted among non-blacks MDRD (S/P/Bld) [Vol rate/Area] 107 mL/min/{1.73_m2} Normal >60 [facility] Comment on above: Order Comment: 109-1 Result Comment: mL/m in/1.73m2 CKD-EPI Creatinine Equation (2020) Performed By: #### L 100.0500, L500.2500 ####[facility] [address] [place], [address] Glucose [Mass/Vol] 113 mg/dL High 70-99 [facility] Comment on above: Order Comment: 109-1 Performed By: #### L 100.0500, L500.2500 ####[facility] [address] [place], [address] Potassium [Moles/Vol] 3.8 mmol/L Normal 3.3-5.1 [facility] Comment on above: Order Comment: 109-1 Performed By: #### L 100.0500, L500.2500 ####[facility] [address] [place], [address] Sodium [Moles/Vol] 141 mmol/L Normal 133-145 [facility] Comment on above: Order Comment: 109-1 Performed By: #### L 100.0500, L500.2500 ####[facility] [address] [place], [address] Urea nitrogen [Mass/Vol] 13 mg/dL Normal 4-19 [facility] Comment on above: Order Comment: 109-1 Performed By: #### L 100.0500, L500.2500 ####[facility] [address] [place], [address] CBC-Complete Blood Cnt No Di ffon 09-11-2024 RDW SD 43.7 fl Normal 35.1-43.9 [facility] Comment on above: Order Comment: 109-1 Performed By: #### L 100.0500, L500.2500 ####[facility] [address] [place], [place], [address] Carbon dioxide, total [Moles /volume] in Central venous bloodOrdered By: Renard Burgos on 09-11-2024 CO2 [Moles/Vol] 25.9 mmol/L 21.0-32.0 [facility] Chloride assayOrdered By: Garrick Bhatt on 09-11-2024 Chloride [Moles/Vol] 104 mmol/L 98-108 [facility] Erythrocyte distribution wid th ratioOrdered By: Renard Burgos on 09-11-2024 Erythrocyte distribution width (RBC) [Ratio] 13.2 % Normal 11.6-14.6 [facility] Comment on above: Order Comment: 109-1 Performed By: #### L 100.0500, L500.2500 ####[facility] [address] [place], [place], [address] Erythrocyte distribution wid th standard deviationOrdered By: Renard Burgos on 09-11-2024 Erythrocyte distribution width (RBC) [Ratio] 43.7 fl 35.1-43.9 [facility] Glomerular filtration rate ( GFR) estimation/1.73 sq m using serum, plasma, or whole bOrdered By: Renard Burgos on 09-11-2024 GFR/1.73 sq M.predicted among non-blacks MDRD (S/P/Bld) [Vol rate/Area] 107 mL/min/{1.73_m2} >60 [facility] Comment on above: mL/min/1.73m2 CKD-EP I Creatinine Equation (2020) Hemoglobin measurementOrdere d By: Renard Burgos on 09-11-2024 Hemoglobin (Bld) [Mass/Vol] 14.0 g/dL Normal 13.0-16.5 [facility] Comment on above: Order Comment: 109-1 Performed By: #### L 100.0500, L500.2500 ####[facility] [address] [place], [address] MCV (mean corpuscular volume ) determinationOrdered By: Renard Burgos on 09-11-2024 MCV (RBC) [Entitic vol] 91.4 fL Normal 80-94 [facility] Comment on above: Order Comment: 109-1 Performed By: #### L 100.0500, L500.2500 ####[facility] [address] [place], [address] Mean corpuscular hemoglobin (MCH) determinationOrdered By: Renard Burgos on 09-11-2024 MCH (RBC) [Entitic mass] 30.0 pg Normal 27.0-32.0 [facility] Comment on above: Order Comment: 109-1 Performed By: #### L 100.0500, L500.2500 ####[facility] [address] [place], [address] Mean corpuscular hemoglobin concentration (MCHC) determinationOrdered By: Renard Burgos on 09-11-2024 MCHC (RBC) [Mass/Vol] 32.8 g/dL Normal 32-36 [facility] Comment on above: Order Comment: 109-1 Performed By: #### L 100.0500, L500.2500 ####[facility] [address] [place], [address] Mean platelet volume determi nationOrdered By: Renard Burgos on 09-11-2024 Platelet mean volume (Bld) [Entitic vol] 11.3 fL Normal 6.2-12.0 [facility] Comment on above: Order Comment: 109-1 Performed By: #### L 100.0500, L500.2500 ####[facility] [address] [place], [address] Platelet countOrdered By: Garrick Bhatt on 09-11-2024 Platelets (Bld) [#/Vol] 191 10*3/uL Normal 150-450 [facility] Comment on above: Order Comment: 109-1 Performed By: #### L 100.0500, L500.2500 ####[facility] [address] [place], [place], [address] Potassium measurement (mass/ volume)Ordered By: Renard Burgos on 09-11-2024 Potassium (Unsp spec) [Mass/Vol] 3.8 mmol/L 3.3-5.1 [facility] Serum creatinine measurement (mass/volume)Ordered By: Renard Burgos on 09-11-2024 Creatinine [Mass/Vol] 0.58 mg/dL Low 0.70-1.20 [facility] Serum glucose measurement (m ass/volume)Ordered By: Renard Burgos on 09-11-2024 Glucose [Mass/Vol] 113 mg/dL High 70-99 [facility] Serum or plasma calcium gordy urement (mass/volume)Ordered By: Renard Burgos on 09-11-2024 Calcium [Mass/Vol] 8.7 mg/dL 7.6-11.0 [facility] Serum or plasma urea nitroge n measurement (mass/volume)Ordered By: Renard Burgos on 09-11-2024 Urea nitrogen [Mass/Vol] 13 mg/dL 4-19 [facility] Sodium levelOrdered By: Lamine Burgos on 09-11-2024 Sodium [Moles/Vol] 141 mmol/L 133-145 [facility] White blood cell (WBC) count Ordered By: Renard Bugros on 09-11-2024 WBC (Bld) [#/Vol] 7.6 10*3/uL Normal 4.4-11.0 [facility] Comment on above: Order Comment: 109-1 Performed By: #### L 100.0500, L500.2500 ####[facility] [address] [place], [place], [address] Absolute lymphocyte countOrd ered By: Renard Burgos on 09-09-2024 Lymphocytes Auto (Unsp spec) [#/Vol] 2.24 10*3/uL 0.83-4.51 [facility] Absolute neutrophil countOrd ered By: Renard Burgos on 09-09-2024 Neutrophils (Bld) [#/Vol] 8.7 10*3/uL High 2.0-7.7 [facility] Automated lymphocyte count a s percentage of total leukocytesOrdered By: Renard Hensleyrustam on 09-09-2024 Lymphocytes/100 WBC Auto (Unsp spec) 19.1 % 19-41 [facility] Basophil percentageOrdered B y: Renard Burgos on 09-09-2024 Basophils/100 WBC (Bld) 0.4 % 0-1 [facility] CBC W/Diff, Automatedon 08-29 Absolute Lymph 2.24 X10 3/uL Normal 0.83-4.51 [facility] Comment on above: Order Comment: 109-1 Performed By: #### L 100.0100 ####[facility] [address] [place], [address] Absolute Neut 8.7 X10 3/uL High 2.0-7.7 [facility] Comment on above: Order Comment: 109-1 Performed By: #### L 100.0100 ####[facility] [address] [place], [address] Basophils/100 WBC (Bld) 0.4 % Normal 0-1 [facility] Comment on above: Order Comment: 109-1 Performed By: #### L 100.0100 ####[facility] [address] [place], [address] Eosinophils/100 WBC (Bld) 0.5 % Normal 0-5 [facility] Comment on above: Order Comment: 109-1 Performed By: #### L 100.0100 ####[facility] [address] [place], [address] Erythrocyte distribution width (RBC) [Ratio] 13.0 % Normal 11.6-14.6 [facility] Comment on above: Order Comment: 109-1 Performed By: #### L 100.0100 ####[facility] [address] [place], [address] Hematocrit (Bld) [Volume fraction] 44.7 % Normal 40-54 [facility] Comment on above: Order Comment: 109-1 Performed By: #### L 100.0100 ####[facility] [address] [place], [address] Hemoglobin (Bld) [Mass/Vol] 14.6 g/dL Normal 13.0-16.5 [facility] Comment on above: Order Comment: 109-1 Performed By: #### L 100.0100 ####[facility] [address] [place], [address] IG% 0.300 Normal 0.0-0.9 [facility] Comment on above: Order Comment: 109-1 Result Comment: IG% - Immature Granulocytes (promyelocytes, myelocytes andmetamyelocytes) > 1% indicates that a LEFT SHIFT is Present. Performed By: #### L 100.0100 ####[facility] [address] [place], [address] Lymphocytes/100 WBC (Bld) 19.1 % Normal 19-41 [facility] Comment on above: Order Comment: 109-1 Performed By: #### L 100.0100 ####[facility] [address] [place], [address] MCH (RBC) [Entitic mass] 30.1 pg Normal 27.0-32.0 [facility] Comment on above: Order Comment: 109-1 Performed By: #### L 100.0100 ####[facility] [address] [place], [address] MCHC (RBC) [Mass/Vol] 32.7 g/dL Normal 32-36 [facility] Comment on above: Order Comment: 109-1 Performed By: #### L 100.0100 ####[facility] [address] [place], [address] MCV (RBC) [Entitic vol] 92.2 fL Normal 80-94 [facility] Comment on above: Order Comment: 109-1 Performed By: #### L 100.0100 ####[facility] [address] [place], [address] Monocytes/100 WBC (Bld) 5.1 % Normal 0-10 [facility] Comment on above: Order Comment: 109-1 Performed By: #### L 100.0100 ####[facility] [address] [place], [address] Neutrophils/100 WBC (Bld) 74.6 % High 47-70 [facility] Comment on above: Order Comment: 109-1 Performed By: #### L 100.0100 ####[facility] [address] [place], [address] Nucleated RBC (Bld) [#/Vol] 0 10*3/uL Normal 0-5 [facility] Comment on above: Order Comment: 109-1 Performed By: #### L 100.0100 ####[facility] [address] [place], [address] Platelet mean volume (Bld) [Entitic vol] 11.6 fL Normal 6.2-12.0 [facility] Comment on above: Order Comment: 109-1 Performed By: #### L 100.0100 ####[facility] [address] [place], [address] Platelets (Bld) [#/Vol] 189 10*3/uL Normal 150-450 [facility] Comment on above: Order Comment: 109-1 Performed By: #### L 100.0100 ####[facility] [address] [place], [address] RBC (Bld) [#/Vol] 4.85 10*6/uL Normal 4.6-6.2 [facility] Comment on above: Order Comment: 109-1 Performed By: #### L 100.0100 ####[facility] [address] [place], [address] RDW SD 43.8 fl Normal 35.1-43.9 [facility] Comment on above: Order Comment: 109-1 Performed By: #### L 100.0100 ####[facility] [address] [place], [address] WBC (Bld) [#/Vol] 11.7 10*3/uL High 4.4-11.0 [facility] Comment on above: Order Comment: 109-1 Performed By: #### L 100.0100 ####[facility] [address] [facility] [place], [address] Eosinophil percentageOrdered By: Renard Burgos on 09-09-2024 Eosinophils/100 WBC (Bld) 0.5 % 0-5 [facility] Erythrocyte distribution wid th ratioOrdered By: Renard Burgos on 09-09-2024 Erythrocyte distribution width (RBC) [Ratio] 13.0 % 11.6-14.6 [facility] Erythrocyte distribution wid th standard deviationOrdered By: Renard Burgos on 09-09-2024 Erythrocyte distribution width (RBC) [Ratio] 43.8 fl 35.1-43.9 [facility] Hematocrit Auto (Bld) [Volum e fraction]Ordered By: Renard Burgos on 09-09-2024 Hematocrit (Bld) [Volume fraction] 44.7 % 40-54 [facility] Hemoglobin measurementOrdere d By: Renard Burgos on 09-09-2024 Hemoglobin (Bld) [Mass/Vol] 14.6 g/dL 13.0-16.5 [facility] Immature granulocytes/100 WB C Auto (Bld)Ordered By: Renard Burgos on 09-09-2024 Immature granulocytes/100 WBC (Bld) 0.300 % 0.0-0.9 [facility] Comment on above: IG% - Immature Granu locytes (promyelocytes, myelocytes and metamyelocytes) > 1% indicates that a LEFT SHIFT is Present. MCV (mean corpuscular volume ) determinationOrdered By: Renard Burgos on 09-09-2024 MCV (RBC) [Entitic vol] 92.2 fL 80-94 [facility] Mean corpuscular hemoglobin (MCH) determinationOrdered By: Renard Burgos on 09-09-2024 MCH (RBC) [Entitic mass] 30.1 pg 27.0-32.0 [facility] Mean corpuscular hemoglobin concentration (MCHC) determinationOrdered By: Renard Burgos on 09-09-2024 MCHC (RBC) [Mass/Vol] 32.7 g/dL 32-36 [facility] Mean platelet volume determi nationOrdered By: Renard Burgos on 09-09-2024 Platelet mean volume (Bld) [Entitic vol] 11.6 fL 6.2-12.0 [facility] Monocyte percentageOrdered B y: Renard Burgos on 09-09-2024 Monocytes/100 WBC (Bld) 5.1 % 0-10 [facility] Neutrophil percentageOrdered By: Renard Burgos on 09-09-2024 Neutrophils/100 WBC (Bld) 74.6 % High 47-70 [facility] Nucleated red blood cell per centageOrdered By: Renard Burgos on 09-09-2024 Nucleated RBC/100 WBC (Bld) [Ratio] 0 % 0-5 [facility] Platelet countOrdered By: Garrick Bhatt on 09-09-2024 Platelets (Bld) [#/Vol] 189 10*3/uL 150-450 [facility] RBC Auto (Bld) [#/Vol]Ordere d By: Renard Burgos on 09-09-2024 RBC (Bld) [#/Vol] 4.85 10*6/uL 4.6-6.2 [facility] White blood cell (WBC) count Ordered By: Renard Burgos on 09-09-2024 WBC (Bld) [#/Vol] 11.7 10*3/uL High 4.4-11.0 [facility] Absolute lymphocyte countOrd ered By: Renard Burgos on 09-02-2024 Lymphocytes Auto (Unsp spec) [#/Vol] 2.07 10*3/uL 0.83-4.51 [facility] Absolute neutrophil countOrd ered By: Renard Burgos on 09-02-2024 Neutrophils (Bld) [#/Vol] 5.8 10*3/uL 2.0-7.7 [facility] Automated lymphocyte count a s percentage of total leukocytesOrdered By: Renard Burgos on 09-02-2024 Lymphocytes/100 WBC Auto (Unsp spec) 24.4 % 19-41 [facility] Basophil percentageOrdered B y: Renard Burgos on 09-02-2024 Basophils/100 WBC (Bld) 0.6 % 0-1 [facility] CBC W/Diff, Automatedon -2024 Absolute Lymph 2.07 X10 3/uL Normal 0.83-4.51 [facility] Comment on above: Order Comment: 109 Performed By: #### L 100.0100 ####[facility] [address] [place], [address] Absolute Neut 5.8 X10 3/uL Normal 2.0-7.7 [facility] Comment on above: Order Comment: 109 Performed By: #### L 100.0100 ####[facility] [address] [place], [address] Basophils/100 WBC (Bld) 0.6 % Normal 0-1 [facility] Comment on above: Order Comment: 109 Performed By: #### L 100.0100 ####[facility] [address] [place], [address] Eosinophils/100 WBC (Bld) 0.7 % Normal 0-5 [facility] Comment on above: Order Comment: 109 Performed By: #### L 100.0100 ####[facility] [address] [place], [address] Erythrocyte distribution width (RBC) [Ratio] 12.8 % Normal 11.6-14.6 [facility] Comment on above: Order Comment: 109 Performed By: #### L 100.0100 ####[facility] [address] [place], [address] Hematocrit (Bld) [Volume fraction] 44.5 % Normal 40-54 [facility] Comment on above: Order Comment: 109 Performed By: #### L 100.0100 ####[facility] [address] [place], [address] Hemoglobin (Bld) [Mass/Vol] 14.9 g/dL Normal 13.0-16.5 [facility] Comment on above: Order Comment: 109 Performed By: #### L 100.0100 ####[facility] [address] [place], [address] IG% 0.400 Normal 0.0-0.9 [facility] Comment on above: Order Comment: 109 Result Comment: IG% - Immature Granulocytes (promyelocytes, myelocytes andmetamyelocytes) > 1% indicates that a LEFT SHIFT is Present. Performed By: #### L 100.0100 ####[facility] [address] [place], [address] Lymphocytes/100 WBC (Bld) 24.4 % Normal 19-41 [facility] Comment on above: Order Comment: 109 Performed By: #### L 100.0100 ####[facility] [address] [place], [address] MCH (RBC) [Entitic mass] 29.9 pg Normal 27.0-32.0 [facility] Comment on above: Order Comment: 109 Performed By: #### L 100.0100 ####[facility] [address] [place], [address] MCHC (RBC) [Mass/Vol] 33.5 g/dL Normal 32-36 [facility] Comment on above: Order Comment: 109 Performed By: #### L 100.0100 ####[facility] [address] [place], [address] MCV (RBC) [Entitic vol] 89.4 fL Normal 80-94 [facility] Comment on above: Order Comment: 109 Performed By: #### L 100.0100 ####[facility] [address] [place], [address] Monocytes/100 WBC (Bld) 5.4 % Normal 0-10 [facility] Comment on above: Order Comment: 109 Performed By: #### L 100.0100 ####[facility] [address] [place], [address] Neutrophils/100 WBC (Bld) 68.5 % Normal 47-70 [facility] Comment on above: Order Comment: 109 Performed By: #### L 100.0100 ####[facility] [address] [place], [address] Nucleated RBC (Bld) [#/Vol] 0 10*3/uL Normal 0-5 [facility] Comment on above: Order Comment: 109 Performed By: #### L 100.0100 ####[facility] [address] [place], [address] Platelet mean volume (Bld) [Entitic vol] 10.7 fL Normal 6.2-12.0 [facility] Comment on above: Order Comment: 109 Performed By: #### L 100.0100 ####[facility] [address] [place], [address] Platelets (Bld) [#/Vol] 189 10*3/uL Normal 150-450 [facility] Comment on above: Order Comment: 109 Performed By: #### L 100.0100 ####[facility] [address] [place], [address] RBC (Bld) [#/Vol] 4.98 10*6/uL Normal 4.6-6.2 [facility] Comment on above: Order Comment: 109 Performed By: #### L 100.0100 ####[facility] [address] [place], [address] RDW SD 41.7 fl Normal 35.1-43.9 [facility] Comment on above: Order Comment: 109 Performed By: #### L 100.0100 ####[facility] [address] [place], [address] WBC (Bld) [#/Vol] 8.5 10*3/uL Normal 4.4-11.0 [facility] Comment on above: Order Comment: 109 Performed By: #### L 100.0100 ####[facility] [address] [place], [place], [id number]([phone] Eosinophil percentageOrdered By: Renard Burgos on 09-02-2024 Eosinophils/100 WBC (Bld) 0.7 % 0-5 [facility] Erythrocyte distribution wid th ratioOrdered By: Renard Burgos on 09-02-2024 Erythrocyte distribution width (RBC) [Ratio] 12.8 % 11.6-14.6 [facility] Erythrocyte distribution wid th standard deviationOrdered By: Renard Burgos on 09-02-2024 Erythrocyte distribution width (RBC) [Ratio] 41.7 fl 35.1-43.9 [facility] Hematocrit Auto (Bld) [Volum e fraction]Ordered By: Rneard Burgos on 09-02-2024 Hematocrit (Bld) [Volume fraction] 44.5 % 40-54 [facility] Hemoglobin measurementOrdere d By: Renard Burgos on 09-02-2024 Hemoglobin (Bld) [Mass/Vol] 14.9 g/dL 13.0-16.5 [facility] Immature granulocytes/100 WB C Auto (Bld)Ordered By: Renard Burgos on 09-02-2024 Immature granulocytes/100 WBC (Bld) 0.400 % 0.0-0.9 [facility] Comment on above: IG% - Immature Granu locytes (promyelocytes, myelocytes and metamyelocytes) > 1% indicates that a LEFT SHIFT is Present. MCV (mean corpuscular volume ) determinationOrdered By: Renard Burgos on 09-02-2024 MCV (RBC) [Entitic vol] 89.4 fL 80-94 [facility] Mean corpuscular hemoglobin (MCH) determinationOrdered By: Renard Burgos on 09-02-2024 MCH (RBC) [Entitic mass] 29.9 pg 27.0-32.0 [facility] Mean corpuscular hemoglobin concentration (MCHC) determinationOrdered By: Renard Burgos on 09-02-2024 MCHC (RBC) [Mass/Vol] 33.5 g/dL 32-36 [facility] Mean platelet volume determi nationOrdered By: Renard Burgos on 09-02-2024 Platelet mean volume (Bld) [Entitic vol] 10.7 fL 6.2-12.0 [facility] Monocyte percentageOrdered B y: Renard Burgos on 09-02-2024 Monocytes/100 WBC (Bld) 5.4 % 0-10 [facility] Neutrophil percentageOrdered By: Renard Burgos on 09-02-2024 Neutrophils/100 WBC (Bld) 68.5 % 47-70 [facility] Nucleated red blood cell per centageOrdered By: Renard Burgos on 09-02-2024 Nucleated RBC/100 WBC (Bld) [Ratio] 0 % 0-5 [facility] Platelet countOrdered By: Garrick Bhatt on 09-02-2024 Platelets (Bld) [#/Vol] 189 10*3/uL 150-450 [facility] RBC Auto (Bld) [#/Vol]Ordere d By: Renard Burgos on 09-02-2024 RBC (Bld) [#/Vol] 4.98 10*6/uL 4.6-6.2 [facility] White blood cell (WBC) count Ordered By: Renard Burgos on 09-02-2024 WBC (Bld) [#/Vol] 8.5 10*3/uL 4.4-11.0 [facility] Absolute lymphocyte countOrd ered By: Renard Burgos on 08-26-2024 Lymphocytes Auto (Unsp spec) [#/Vol] 2.17 10*3/uL 0.83-4.51 [facility] Absolute neutrophil countOrd ered By: Renard Burgos on 08-26-2024 Neutrophils (Bld) [#/Vol] 5.7 10*3/uL 2.0-7.7 [facility] Automated lymphocyte count a s percentage of total leukocytesOrdered By: Renard Burgos on 08-26-2024 Lymphocytes/100 WBC Auto (Unsp spec) 25.1 % 19-41 [facility] Basophil percentageOrdered B y: Renard Burgos on 08-26-2024 Basophils/100 WBC (Bld) 0.6 % 0-1 [facility] CBC W/Diff, Automatedon 07-31 Absolute Lymph 2.17 X10 3/uL Normal 0.83-4.51 [facility] Comment on above: Order Comment: 109-1 Performed By: #### L 100.0100 ####[facility] [address] [place], [address] Absolute Neut 5.7 X10 3/uL Normal 2.0-7.7 [facility] Comment on above: Order Comment: 109-1 Performed By: #### L 100.0100 ####[facility] [address] [place], [address] Basophils/100 WBC (Bld) 0.6 % Normal 0-1 [facility] Comment on above: Order Comment: 109-1 Performed By: #### L 100.0100 ####[facility] [address] [place], [address] Eosinophils/100 WBC (Bld) 0.8 % Normal 0-5 [facility] Comment on above: Order Comment: 109-1 Performed By: #### L 100.0100 ####[facility] [address] [place], [address] Erythrocyte distribution width (RBC) [Ratio] 12.7 % Normal 11.6-14.6 [facility] Comment on above: Order Comment: 109-1 Performed By: #### L 100.0100 ####[facility] [address] [place], [address] Hematocrit (Bld) [Volume fraction] 41.8 % Normal 40-54 [facility] Comment on above: Order Comment: 109-1 Performed By: #### L 100.0100 ####[facility] [address] [place], [address] Hemoglobin (Bld) [Mass/Vol] 13.8 g/dL Normal 13.0-16.5 [facility] Comment on above: Order Comment: 109-1 Performed By: #### L 100.0100 ####[facility] [address] [place], [address] IG% 0.200 Normal 0.0-0.9 [facility] Comment on above: Order Comment: 109-1 Result Comment: IG% - Immature Granulocytes (promyelocytes, myelocytes andmetamyelocytes) > 1% indicates that a LEFT SHIFT is Present. Performed By: #### L 100.0100 ####[facility] [address] [place], [address] Lymphocytes/100 WBC (Bld) 25.1 % Normal 19-41 [facility] Comment on above: Order Comment: 109-1 Performed By: #### L 100.0100 ####[facility] [address] [place], [address] MCH (RBC) [Entitic mass] 29.7 pg Normal 27.0-32.0 [facility] Comment on above: Order Comment: 109-1 Performed By: #### L 100.0100 ####[facility] [address] [place], [address] MCHC (RBC) [Mass/Vol] 33.0 g/dL Normal 32-36 [facility] Comment on above: Order Comment: 109-1 Performed By: #### L 100.0100 ####[facility] [address] [place], [address] MCV (RBC) [Entitic vol] 90.1 fL Normal 80-94 [facility] Comment on above: Order Comment: 109-1 Performed By: #### L 100.0100 ####[facility] [address] [place], [address] Monocytes/100 WBC (Bld) 7.4 % Normal 0-10 [facility] Comment on above: Order Comment: 109-1 Performed By: #### L 100.0100 ####[facility] [address] [place], [address] Neutrophils/100 WBC (Bld) 65.9 % Normal 47-70 [facility] Comment on above: Order Comment: 109-1 Performed By: #### L 100.0100 ####[facility] [address] [place], [address] Nucleated RBC (Bld) [#/Vol] 0 10*3/uL Normal 0-5 [facility] Comment on above: Order Comment: 109-1 Performed By: #### L 100.0100 ####[facility] [address] [place], [address] Platelet mean volume (Bld) [Entitic vol] 11.3 fL Normal 6.2-12.0 [facility] Comment on above: Order Comment: 109-1 Performed By: #### L 100.0100 ####[facility] [address] [place], [address] Platelets (Bld) [#/Vol] 196 10*3/uL Normal 150-450 [facility] Comment on above: Order Comment: 109-1 Performed By: #### L 100.0100 ####[facility] [address] [place], [address] RBC (Bld) [#/Vol] 4.64 10*6/uL Normal 4.6-6.2 [facility] Comment on above: Order Comment: 109-1 Performed By: #### L 100.0100 ####[facility] [address] [place], [address] RDW SD 41.3 fl Normal 35.1-43.9 [facility] Comment on above: Order Comment: 109-1 Performed By: #### L 100.0100 ####[facility] [address] [place], [address] WBC (Bld) [#/Vol] 8.6 10*3/uL Normal 4.4-11.0 [facility] Comment on above: Order Comment: 109-1 Performed By: #### L 100.0100 ####[facility] [address] [place], [address] Eosinophil percentageOrdered By: Renard Burgos on 08-26-2024 Eosinophils/100 WBC (Bld) 0.8 % 0-5 [facility] Erythrocyte distribution wid th ratioOrdered By: Renard Burgos on 08-26-2024 Erythrocyte distribution width (RBC) [Ratio] 12.7 % 11.6-14.6 [facility] Erythrocyte distribution wid th standard deviationOrdered By: Renard Burgos on 08-26-2024 Erythrocyte distribution width (RBC) [Ratio] 41.3 fl 35.1-43.9 [facility] Hematocrit Auto (Bld) [Volum e fraction]Ordered By: Renard Burgos on 08-26-2024 Hematocrit (Bld) [Volume fraction] 41.8 % 40-54 [facility] Hemoglobin measurementOrdere d By: Renard Burgos on 08-26-2024 Hemoglobin (Bld) [Mass/Vol] 13.8 g/dL 13.0-16.5 [facility] Immature granulocytes/100 WB C Auto (Bld)Ordered By: Renard Burgos on 08-26-2024 Immature granulocytes/100 WBC (Bld) 0.200 % 0.0-0.9 [facility] Comment on above: IG% - Immature Granu locytes (promyelocytes, myelocytes and metamyelocytes) > 1% indicates that a LEFT SHIFT is Present. MCV (mean corpuscular volume ) determinationOrdered By: Renard Burgos on 08-26-2024 MCV (RBC) [Entitic vol] 90.1 fL 80-94 [facility] Mean corpuscular hemoglobin (MCH) determinationOrdered By: Renard Burgos on 08-26-2024 MCH (RBC) [Entitic mass] 29.7 pg 27.0-32.0 [facility] Mean corpuscular hemoglobin concentration (MCHC) determinationOrdered By: Renard Burgos on 08-26-2024 MCHC (RBC) [Mass/Vol] 33.0 g/dL 32-36 [facility] Mean platelet volume determi nationOrdered By: Renard Burgos on 08-26-2024 Platelet mean volume (Bld) [Entitic vol] 11.3 fL 6.2-12.0 [facility] Monocyte percentageOrdered B y: Renard Burgos on 08-26-2024 Monocytes/100 WBC (Bld) 7.4 % 0-10 [facility] Neutrophil percentageOrdered By: Renard Burgos on 08-26-2024 Neutrophils/100 WBC (Bld) 65.9 % 47-70 [facility] Nucleated red blood cell per centageOrdered By: Renard Burgos on 08-26-2024 Nucleated RBC/100 WBC (Bld) [Ratio] 0 % 0-5 [facility] Platelet countOrdered By: Garrick Bhatt on 08-26-2024 Platelets (Bld) [#/Vol] 196 10*3/uL 150-450 [facility] RBC Auto (Bld) [#/Vol]Ordere d By: Renard Burgos on 08-26-2024 RBC (Bld) [#/Vol] 4.64 10*6/uL 4.6-6.2 [facility] White blood cell (WBC) count Ordered By: Reanrd Burgos on 08-26-2024 WBC (Bld) [#/Vol] 8.6 10*3/uL 4.4-11.0 [facility] Anion gap in Serum or Plasma Ordered By: Renard Burgos on 08-23-2024 Anion gap [Moles/Vol] 10 mmol/L 5-15 [facility] BUN/creatinine ratioOrdered By: Renard Burgos on 08-23-2024 Urea nitrogen/Creatinine [Mass ratio] 21.4 mg/mg High 10-20 [facility] Bilirubin, totalOrdered By: Renard Burgos on 08-23-2024 Bilirubin [Mass/Vol] 0.35 mg/dL 0.00-1.30 [facility] CBC-Complete Blood Cnt No Di ffon 08-23-2024 Erythrocyte distribution width (RBC) [Ratio] 12.7 % Normal 11.6-14.6 [facility] Comment on above: Order Comment: 109.1 Performed By: #### L 500.4100, L100.0500, L500.4050 ####[facility] [address] [place], [address] Hematocrit (Bld) [Volume fraction] 42.2 % Normal 40-54 [facility] Comment on above: Order Comment: 109.1 Performed By: #### L 500.4100, L100.0500, L500.4050 ####[facility] [address] [place], [address] Hemoglobin (Bld) [Mass/Vol] 14.0 g/dL Normal 13.0-16.5 [facility] Comment on above: Order Comment: 109.1 Performed By: #### L 500.4100, L100.0500, L500.4050 ####[facility] [address] [place], [address] MCH (RBC) [Entitic mass] 30.0 pg Normal 27.0-32.0 [facility] Comment on above: Order Comment: 109.1 Performed By: #### L 500.4100, L100.0500, L500.4050 ####[facility] [address] [place], [address] MCHC (RBC) [Mass/Vol] 33.2 g/dL Normal 32-36 [facility] Comment on above: Order Comment: 109.1 Performed By: #### L 500.4100, L100.0500, L500.4050 ####[facility] [address] [place], [address] MCV (RBC) [Entitic vol] 90.6 fL Normal 80-94 [facility] Comment on above: Order Comment: 109.1 Performed By: #### L 500.4100, L100.0500, L500.4050 ####[facility] [address] [place], [address] Platelet mean volume (Bld) [Entitic vol] 11.3 fL Normal 6.2-12.0 [facility] Comment on above: Order Comment: 109.1 Performed By: #### L 500.4100, L100.0500, L500.4050 ####[facility] [address] [place], [address] Platelets (Bld) [#/Vol] 184 10*3/uL Normal 150-450 [facility] Comment on above: Order Comment: 109.1 Performed By: #### L 500.4100, L100.0500, L500.4050 ####[facility] [address] [place], [address] RBC (Bld) [#/Vol] 4.66 10*6/uL Normal 4.6-6.2 [facility] Comment on above: Order Comment: 109.1 Performed By: #### L 500.4100, L100.0500, L500.4050 ####[facility] [address] [place], [address] RDW SD 41.8 fl Normal 35.1-43.9 [facility] Comment on above: Order Comment: 109.1 Performed By: #### L 500.4100, L100.0500, L500.4050 ####[facility] [address] [place], [address] WBC (Bld) [#/Vol] 8.6 10*3/uL Normal 4.4-11.0 [facility] Comment on above: Order Comment: 109.1 Performed By: #### L 500.4100, L100.0500, L500.4050 ####[facility] [address] [place], [address] Calculated very low density lipoprotein (VLDL) cholesterol measurementOrdered By: Renard Burgos on 08-23-2024 Calculated very low density lipoprotein (VLDL) cholesterol measurement 40 mg/dL 5-40 [facility] Carbon dioxide, total [Moles /volume] in Central venous bloodOrdered By: Renard Burgos on 08-23-2024 CO2 [Moles/Vol] 24.9 mmol/L 21.0-32.0 [facility] Chloride assayOrdered By: Garrick Bhatt on 08-23-2024 Chloride [Moles/Vol] 106 mmol/L 98-108 [facility] Comprehensive Metabolic Prof ilon 08-23-2024 Albumin [Mass/Vol] 3.4 g/dL Normal 3.4-4.8 [facility] Comment on above: Order Comment: 109.1 Performed By: #### L 500.4100, L100.0500, L500.4050 ####[facility] [address] [place], [address] Albumin/Globulin [Mass ratio] 1.4 {ratio} Normal 0.9-2.4 [facility] Comment on above: Order Comment: 109.1 Performed By: #### L 500.4100, L100.0500, L500.4050 ####[facility] [address] [place], [address] ALK PHOS 101 U/L Normal 40-129 [facility] Comment on above: Order Comment: 109.1 Performed By: #### L 500.4100, L100.0500, L500.4050 ####[facility] [address] [place], [address] ALT [Catalytic activity/Vol] 13 U/L Normal <=46 [facility] Comment on above: Order Comment: 109.1 Performed By: #### L 500.4100, L100.0500, L500.4050 ####[facility] [address] [place], [address] AST [Catalytic activity/Vol] 17 U/L Normal <=37 [facility] Comment on above: Order Comment: 109.1 Performed By: #### L 500.4100, L100.0500, L500.4050 ####[facility] [address] [place], [address] Bilirubin [Mass/Vol] 0.35 mg/dL Normal 0.00-1.30 [facility] Comment on above: Order Comment: 109.1 Performed By: #### L 500.4100, L100.0500, L500.4050 ####[facility] [address] [place], [address] BUN/CRE 21.4 RATIO High 10-20 [facility] Comment on above: Order Comment: 109.1 Performed By: #### L 500.4100, L100.0500, L500.4050 ####[facility] [address] [place], [address] Calcium [Mass/Vol] 8.2 mg/dL Normal 7.6-11.0 [facility] Comment on above: Order Comment: 109.1 Performed By: #### L 500.4100, L100.0500, L500.4050 ####[facility] [address] [place], [address] Chloride [Moles/Vol] 106 mmol/L Normal 98-108 [facility] Comment on above: Order Comment: 109.1 Performed By: #### L 500.4100, L100.0500, L500.4050 ####[facility] [address] [place], [address] CO2 [Moles/Vol] 24.9 mmol/L Normal 21.0-32.0 [facility] Comment on above: Order Comment: 109.1 Performed By: #### L 500.4100, L100.0500, L500.4050 ####[facility] [address] [place], [address] Creatinine [Mass/Vol] 0.63 mg/dL Low 0.70-1.20 [facility] Comment on above: Order Comment: 109.1 Performed By: #### L 500.4100, L100.0500, L500.4050 ####[facility] [address] [place], [address] GAP 10 Normal 5-15 [facility] Comment on above: Order Comment: 109.1 Performed By: #### L 500.4100, L100.0500, L500.4050 ####[facility] [address] [place], [address] GFR/1.73 sq M.predicted among non-blacks MDRD (S/P/Bld) [Vol rate/Area] 104 mL/min/{1.73_m2} Normal >60 [facility] Comment on above: Order Comment: 109.1 Result Comment: mL/m in/1.73m2 CKD-EPI Creatinine Equation (2020) Performed By: #### L 500.4100, L100.0500, L500.4050 ####[facility] [address] [place], [address] Globulin (S) [Mass/Vol] 2.3 g/dL Normal 2.2-4.2 [facility] Comment on above: Order Comment: 109.1 Performed By: #### L 500.4100, L100.0500, L500.4050 ####[facility] [address] [place], [address] Glucose [Mass/Vol] 116 mg/dL High 70-99 [facility] Comment on above: Order Comment: 109.1 Performed By: #### L 500.4100, L100.0500, L500.4050 ####[facility] [address] [place], [address] Potassium [Moles/Vol] 3.8 mmol/L Normal 3.3-5.1 [facility] Comment on above: Order Comment: 109.1 Performed By: #### L 500.4100, L100.0500, L500.4050 ####[facility] [address] [place], [address] Sodium [Moles/Vol] 141 mmol/L Normal 133-145 [facility] Comment on above: Order Comment: 109.1 Performed By: #### L 500.4100, L100.0500, L500.4050 ####[facility] [address] [place], [address] T PROT 5.7 g/dL Low 5.9-8.4 [facility] Comment on above: Order Comment: 109.1 Performed By: #### L 500.4100, L100.0500, L500.4050 ####[facility] [address] [place], [address] Urea nitrogen [Mass/Vol] 14 mg/dL Normal 4-19 [facility] Comment on above: Order Comment: 109.1 Performed By: #### L 500.4100, L100.0500, L500.4050 ####[facility] [address] [place], [address] Erythrocyte distribution wid th ratioOrdered By: Renard Burgos on 08-23-2024 Erythrocyte distribution width (RBC) [Ratio] 12.7 % 11.6-14.6 [facility] Erythrocyte distribution wid th standard deviationOrdered By: Renard Burgos on 08-23-2024 Erythrocyte distribution width (RBC) [Ratio] 41.8 fl 35.1-43.9 [facility] Glomerular filtration rate ( GFR) estimation/1.73 sq m using serum, plasma, or whole bOrdered By: Renard Burgos on 08-23-2024 GFR/1.73 sq M.predicted among non-blacks MDRD (S/P/Bld) [Vol rate/Area] 104 mL/min/{1.73_m2} >60 [facility] Comment on above: mL/min/1.73m2 CKD-EP I Creatinine Equation (2020) Hematocrit Auto (Bld) [Volum e fraction]Ordered By: Renard Burgos on 08-23-2024 Hematocrit (Bld) [Volume fraction] 42.2 % 40-54 [facility] Hemoglobin measurementOrdere d By: Renard Burgos on 08-23-2024 Hemoglobin (Bld) [Mass/Vol] 14.0 g/dL 13.0-16.5 [facility] LDL calc ser/plasOrdered By: Renard Burgos on 08-23-2024 Cholesterol in LDL [Mass/Vol] 62 mg/dL [facility] Comment on above: Diamksifup=986-776 m g/dL & Higher Fvvb=858 mg/dL or greater Laboratory - Chemistry and C hemistry - challengeOrdered By: Renard Burgos on 08-23-2024 AST [Catalytic activity/Vol] 17 U/L <38 [facility] Lipid Profileon 08-23-2024 CHOL:HDL 5.32 Normal [facility] Comment on above: Order Comment: 109.1 Performed By: #### L 500.4100, L100.0500, L500.4050 ####[facility] [address] [place], [place], [address] Cholesterol [Mass/Vol] 125 mg/dL Normal <=200 [facility] Comment on above: Order Comment: 109.1 Result Comment: Chol esterol level, Desirable <200 mg/dLBorderline high cholesterol 200-239 mg/dLHigh cholesterol >=240 mg/dLRecommendations of the NCEP Adult Treatment Panel for thefollowing risk-cutoff thresholds for the [place] Americanpulation. Performed By: #### L 500.4100, L100.0500, L500.4050 ####[facility] [address] [place], [address] Cholesterol in HDL [Mass/Vol] 24 mg/dL Low [facility] Comment on above: Order Comment: 109.1 Result Comment: Lucy onal Cholesterol Education Program (NCEP) guidelines:<40 mg/dL: Low HDL-cholesterol (major risk factor for CHD)>= 60 mg/dL: High HDL-cholesterol (negative risk factor forCHD)HDL-cholesterol is affected by a number of factors, e.g.smoking, exercise, hormones, sex and age. Performed By: #### L 500.4100, L100.0500, L500.4050 ####[facility] [address] [place], [address] Cholesterol in LDL [Mass/Vol] 62 mg/dL Normal [facility] Comment on above: Order Comment: 109.1 Result Comment: Bord sntgrv=256-305 mg/dL Higher Ppvg=941 mg/dL or greater Performed By: #### L 500.4100, L100.0500, L500.4050 ####[facility] [address] [place], [address] Cholesterol in VLDL [Mass/Vol] 40 mg/dL Normal 5-40 [facility] Comment on above: Order Comment: 109.1 Performed By: #### L 500.4100, L100.0500, L500.4050 ####[facility] [address] [place], [address] Triglyceride [Mass/Vol] 198 mg/dL Normal [facility] Comment on above: Order Comment: 109.1 Result Comment: The drugs N-Acetylcysteine and Metamizole may falselydepress this assay.Normal range: <150 mg/dLBorderline High: 150-199 mg/dLHigh: 200-499 mg/dLVery High: >500 mg/dL Performed By: #### L 500.4100, L100.0500, L500.4050 ####[facility] [address] [place], [address] MCV (mean corpuscular volume ) determinationOrdered By: Renard Burgos on 08-23-2024 MCV (RBC) [Entitic vol] 90.6 fL 80-94 [facility] Mean corpuscular hemoglobin (MCH) determinationOrdered By: Renard Burgos on 08-23-2024 MCH (RBC) [Entitic mass] 30.0 pg 27.0-32.0 [facility] Mean corpuscular hemoglobin concentration (MCHC) determinationOrdered By: Renard Burgos on 08-23-2024 MCHC (RBC) [Mass/Vol] 33.2 g/dL 32-36 [facility] Mean platelet volume determi nationOrdered By: Renard Burgos on 08-23-2024 Platelet mean volume (Bld) [Entitic vol] 11.3 fL 6.2-12.0 [facility] Platelet countOrdered By: Garrick Bhatt on 08-23-2024 Platelets (Bld) [#/Vol] 184 10*3/uL 150-450 [facility] Potassium measurement (mass/ volume)Ordered By: Renard Burgos on 08-23-2024 Potassium (Unsp spec) [Mass/Vol] 3.8 mmol/L 3.3-5.1 [facility] RBC Auto (Bld) [#/Vol]Ordere d By: Renard Burgos on 08-23-2024 RBC (Bld) [#/Vol] 4.66 10*6/uL 4.6-6.2 [facility] Screening total cholesterol/ high density lipoprotein (HDL) cholesterol ratioOrdered By: Renard Burgos on 08-23-2024 Cholesterol.total/Cecilia sterol in HDL [Mass ratio] 5.32 {ratio} [facility] Serum creatinine measurement (mass/volume)Ordered By: Renard Burgos on 08-23-2024 Creatinine [Mass/Vol] 0.63 mg/dL Low 0.70-1.20 [facility] Serum globulin measurementOr dered By: Renard Burgos on 08-23-2024 Globulin (S) [Mass/Vol] 2.3 g/dL 2.2-4.2 [facility] Serum glucose measurement (m ass/volume)Ordered By: Renard Burgos on 08-23-2024 Glucose [Mass/Vol] 116 mg/dL High 70-99 [facility] Serum or plasma alanine kay otransferase (ALT) measurementOrdered By: Renard Burgos on 08-23-2024 ALT [Catalytic activity/Vol] 13 U/L <47 [facility] Serum or plasma albumin gordy urement (mass/volume)Ordered By: Renard Burgos on 08-23-2024 Albumin [Mass/Vol] 3.4 g/dL 3.4-4.8 [facility] Serum or plasma albumin/glob ulin mass ratioOrdered By: Renard Burgos on 08-23-2024 Albumin/Globulin [Mass ratio] 1.4 {ratio} 0.9-2.4 [facility] Serum or plasma alkaline trace sphatase measurementOrdered By: Renard Burgos on 08-23-2024 ALP [Catalytic activity/Vol] 101 U/L 40-129 [facility] Serum or plasma calcium gordy urement (mass/volume)Ordered By: Renard Burgos on 08-23-2024 Calcium [Mass/Vol] 8.2 mg/dL 7.6-11.0 [facility] Serum or plasma cholesterol in HDL measurement (mass/volume)Ordered By: Renard Burgos on 08-23-2024 Cholesterol in HDL [Mass/Vol] 24 mg/dL Low >40 [facility] Comment on above: National Cholesterol Education Program (NCEP) guidelines:<40 mg/dL: Low HDL-cholesterol (major risk factor for CHD)>= 60 mg/dL: High HDL-cholesterol (negative risk factor for CHD)HDL-cholesterol is affected by a number of factors, e.g. smoking, exercise, hormones, sex and age. Serum or plasma cholesterol measurement (mass/volume)Ordered By: Renard Burgos on 08-23-2024 Cholesterol [Mass/Vol] 125 mg/dL <201 [facility] Comment on above: Cholesterol level, D esirable <200 mg/dLBorderline high cholesterol 200-239 mg/dLHigh cholesterol >=240 mg/dLRecommendations of the NCEP Adult Treatment Panel for the following risk-cutoff thresholds for the [place] population. Serum or plasma urea nitroge n measurement (mass/volume)Ordered By: Renard Burgos on 08-23-2024 Urea nitrogen [Mass/Vol] 14 mg/dL 4-19 [facility] Sodium levelOrdered By: Lamine Burgos on 08-23-2024 Sodium [Moles/Vol] 141 mmol/L 133-145 [facility] Total proteinOrdered By: Lyubov Burgos on 08-23-2024 Protein [Mass/Vol] 5.7 g/dL Low 5.9-8.4 [facility] Triglycerides measurementOrd ered By: Renard Burgos on 08-23-2024 Triglyceride [Mass/Vol] 198 mg/dL <199 [facility] Comment on above: The drugs N-Acetylcy steine and Metamizole may falsely depress this assay. Normal range: <150 mg/dLBorderline High: 150-199 mg/dLHigh: 200-499 mg/dLVery High: >500 mg/dL White blood cell (WBC) count Ordered By: Renard Burgos on 08-23-2024 WBC (Bld) [#/Vol] 8.6 10*3/uL 4.4-11.0 [facility] Absolute lymphocyte countOrd ered By: Renard Burgos on 08-19-2024 Lymphocytes Auto (Unsp spec) [#/Vol] 1.97 10*3/uL 0.83-4.51 [facility] Absolute neutrophil countOrd ered By: Renard Burgos on 08-19-2024 Neutrophils (Bld) [#/Vol] 5.0 10*3/uL 2.0-7.7 [facility] Automated lymphocyte count a s percentage of total leukocytesOrdered By: Renard Burgos on 08-19-2024 Lymphocytes/100 WBC Auto (Unsp spec) 25.4 % 19-41 [facility] Basophil percentageOrdered B y: Renard Burgos on 08-19-2024 Basophils/100 WBC (Bld) 0.5 % 0-1 [facility] CBC W/Diff, Automatedon 07-31 Absolute Lymph 1.97 X10 3/uL Normal 0.83-4.51 [facility] Comment on above: Order Comment: 109 Performed By: #### L 100.0100 ####[facility] [address] [place], [address] Absolute Neut 5.0 X10 3/uL Normal 2.0-7.7 [facility] Comment on above: Order Comment: 109 Performed By: #### L 100.0100 ####[facility] [address] [place], [address] Basophils/100 WBC (Bld) 0.5 % Normal 0-1 [facility] Comment on above: Order Comment: 109 Performed By: #### L 100.0100 ####[facility] [address] [place], [address] Eosinophils/100 WBC (Bld) 1.0 % Normal 0-5 [facility] Comment on above: Order Comment: 109 Performed By: #### L 100.0100 ####[facility] [address] [place], [address] Erythrocyte distribution width (RBC) [Ratio] 12.7 % Normal 11.6-14.6 [facility] Comment on above: Order Comment: 109 Performed By: #### L 100.0100 ####[facility] [address] [place], [address] Hematocrit (Bld) [Volume fraction] 41.0 % Normal 40-54 [facility] Comment on above: Order Comment: 109 Performed By: #### L 100.0100 ####[facility] [address] [place], [address] Hemoglobin (Bld) [Mass/Vol] 13.6 g/dL Normal 13.0-16.5 [facility] Comment on above: Order Comment: 109 Performed By: #### L 100.0100 ####[facility] [address] [place], [address] IG% 0.400 Normal 0.0-0.9 [facility] Comment on above: Order Comment: 109 Result Comment: IG% - Immature Granulocytes (promyelocytes, myelocytes andmetamyelocytes) > 1% indicates that a LEFT SHIFT is Present. Performed By: #### L 100.0100 ####[facility] [address] [place], [address] Lymphocytes/100 WBC (Bld) 25.4 % Normal 19-41 [facility] Comment on above: Order Comment: 109 Performed By: #### L 100.0100 ####[facility] [address] [place], [address] MCH (RBC) [Entitic mass] 30.2 pg Normal 27.0-32.0 [facility] Comment on above: Order Comment: 109 Performed By: #### L 100.0100 ####[facility] [address] [place], [address] MCHC (RBC) [Mass/Vol] 33.2 g/dL Normal 32-36 [facility] Comment on above: Order Comment: 109 Performed By: #### L 100.0100 ####[facility] [address] [place], [address] MCV (RBC) [Entitic vol] 91.1 fL Normal 80-94 [facility] Comment on above: Order Comment: 109 Performed By: #### L 100.0100 ####[facility] [address] [place], [address] Monocytes/100 WBC (Bld) 8.2 % Normal 0-10 [facility] Comment on above: Order Comment: 109 Performed By: #### L 100.0100 ####[facility] [address] [place], [address] Neutrophils/100 WBC (Bld) 64.5 % Normal 47-70 [facility] Comment on above: Order Comment: 109 Performed By: #### L 100.0100 ####[facility] [address] [place], [address] Nucleated RBC (Bld) [#/Vol] 0 10*3/uL Normal 0-5 [facility] Comment on above: Order Comment: 109 Performed By: #### L 100.0100 ####[facility] [address] [place], [address] Platelet mean volume (Bld) [Entitic vol] 11.1 fL Normal 6.2-12.0 [facility] Comment on above: Order Comment: 109 Performed By: #### L 100.0100 ####[facility] [address] [place], [address] Platelets (Bld) [#/Vol] 207 10*3/uL Normal 150-450 [facility] Comment on above: Order Comment: 109 Performed By: #### L 100.0100 ####[facility] [address] [place], [address] RBC (Bld) [#/Vol] 4.50 10*6/uL Low 4.6-6.2 [facility] Comment on above: Order Comment: 109 Performed By: #### L 100.0100 ####[facility] [address] [place], [address] RDW SD 42.0 fl Normal 35.1-43.9 [facility] Comment on above: Order Comment: 109 Performed By: #### L 100.0100 ####[facility] [address] [place], [address] WBC (Bld) [#/Vol] 7.8 10*3/uL Normal 4.4-11.0 [facility] Comment on above: Order Comment: 109 Performed By: #### L 100.0100 ####[facility] [address] [place], [address] Eosinophil percentageOrdered By: Renard Burgos on 08-19-2024 Eosinophils/100 WBC (Bld) 1.0 % 0-5 [facility] Erythrocyte distribution wid th ratioOrdered By: Renard Burgos on 08-19-2024 Erythrocyte distribution width (RBC) [Ratio] 12.7 % 11.6-14.6 [facility] Erythrocyte distribution wid th standard deviationOrdered By: Renard Burgos on 08-19-2024 Erythrocyte distribution width (RBC) [Ratio] 42.0 fl 35.1-43.9 [facility] Hematocrit Auto (Bld) [Volum e fraction]Ordered By: Renard Burgos on 08-19-2024 Hematocrit (Bld) [Volume fraction] 41.0 % 40-54 [facility] Hemoglobin measurementOrdere d By: Renard Burgos on 08-19-2024 Hemoglobin (Bld) [Mass/Vol] 13.6 g/dL 13.0-16.5 [facility] Immature granulocytes/100 WB C Auto (Bld)Ordered By: Renard Burgos on 08-19-2024 Immature granulocytes/100 WBC (Bld) 0.400 % 0.0-0.9 [facility] Comment on above: IG% - Immature Granu locytes (promyelocytes, myelocytes and metamyelocytes) > 1% indicates that a LEFT SHIFT is Present. MCV (mean corpuscular volume ) determinationOrdered By: Renard Burgos on 08-19-2024 MCV (RBC) [Entitic vol] 91.1 fL 80-94 [facility] Mean corpuscular hemoglobin (MCH) determinationOrdered By: Renard Burgos on 08-19-2024 MCH (RBC) [Entitic mass] 30.2 pg 27.0-32.0 [facility] Mean corpuscular hemoglobin concentration (MCHC) determinationOrdered By: Renard Burgos on 08-19-2024 MCHC (RBC) [Mass/Vol] 33.2 g/dL 32-36 [facility] Mean platelet volume determi nationOrdered By: Renard Burgos on 08-19-2024 Platelet mean volume (Bld) [Entitic vol] 11.1 fL 6.2-12.0 [facility] Monocyte percentageOrdered B y: Renard Burgos on 08-19-2024 Monocytes/100 WBC (Bld) 8.2 % 0-10 [facility] Neutrophil percentageOrdered By: Renard Burgos on 08-19-2024 Neutrophils/100 WBC (Bld) 64.5 % 47-70 [facility] Nucleated red blood cell per centageOrdered By: Renard Burgos on 08-19-2024 Nucleated RBC/100 WBC (Bld) [Ratio] 0 % 0-5 [facility] Platelet countOrdered By: Garrick Bhatt on 08-19-2024 Platelets (Bld) [#/Vol] 207 10*3/uL 150-450 [facility] RBC Auto (Bld) [#/Vol]Ordere d By: Renard Burgos on 08-19-2024 RBC (Bld) [#/Vol] 4.50 10*6/uL Low 4.6-6.2 [facility] White blood cell (WBC) count Ordered By: Renard Burgos on 08-19-2024 WBC (Bld) [#/Vol] 7.8 10*3/uL 4.4-11.0 [facility] Absolute lymphocyte countOrd ered By: Renard Burgos on 08-12-2024 Lymphocytes Auto (Unsp spec) [#/Vol] 2.09 10*3/uL 0.83-4.51 [facility] Absolute neutrophil countOrd ered By: Renard Burgos on 08-12-2024 Neutrophils (Bld) [#/Vol] 5.0 10*3/uL 2.0-7.7 [facility] Automated lymphocyte count a s percentage of total leukocytesOrdered By: Renard Burgos on 08-12-2024 Lymphocytes/100 WBC Auto (Unsp spec) 27.0 % 19-41 [facility] Basophil percentageOrdered B y: Renard Burgos on 08-12-2024 Basophils/100 WBC (Bld) 0.5 % 0-1 [facility] CBC W/Diff, Automatedon 07-30 Absolute Lymph 2.09 X10 3/uL Normal 0.83-4.51 [facility] Comment on above: Order Comment: 109.1 Performed By: #### L 100.0100 ####[facility] [address] [place], [place], [id number] Absolute Neut 5.0 X10 3/uL Normal 2.0-7.7 [facility] Comment on above: Order Comment: 109.1 Performed By: #### L 100.0100 ####[facility] [address] [place], [address] Basophils/100 WBC (Bld) 0.5 % Normal 0-1 [facility] Comment on above: Order Comment: 109.1 Performed By: #### L 100.0100 ####[facility] [address] [place], [address] Eosinophils/100 WBC (Bld) 0.9 % Normal 0-5 [facility] Comment on above: Order Comment: 109.1 Performed By: #### L 100.0100 ####[facility] [address] [place], [address] Erythrocyte distribution width (RBC) [Ratio] 12.7 % Normal 11.6-14.6 [facility] Comment on above: Order Comment: 109.1 Performed By: #### L 100.0100 ####[facility] [address] [place], [address] Hematocrit (Bld) [Volume fraction] 41.9 % Normal 40-54 [facility] Comment on above: Order Comment: 109.1 Performed By: #### L 100.0100 ####[facility] [address] [place], [address] Hemoglobin (Bld) [Mass/Vol] 14.1 g/dL Normal 13.0-16.5 [facility] Comment on above: Order Comment: 109.1 Performed By: #### L 100.0100 ####[facility] [address] [place], [address] IG% 0.300 Normal 0.0-0.9 [facility] Comment on above: Order Comment: 109.1 Result Comment: IG% - Immature Granulocytes (promyelocytes, myelocytes andmetamyelocytes) > 1% indicates that a LEFT SHIFT is Present. Performed By: #### L 100.0100 ####[facility] [address] [place], [address] Lymphocytes/100 WBC (Bld) 27.0 % Normal 19-41 [facility] Comment on above: Order Comment: 109.1 Performed By: #### L 100.0100 ####[facility] [address] [place], [address] MCH (RBC) [Entitic mass] 30.3 pg Normal 27.0-32.0 [facility] Comment on above: Order Comment: 109.1 Performed By: #### L 100.0100 ####[facility] [address] [place], [address] MCHC (RBC) [Mass/Vol] 33.7 g/dL Normal 32-36 [facility] Comment on above: Order Comment: 109.1 Performed By: #### L 100.0100 ####[facility] [address] [place], [address] MCV (RBC) [Entitic vol] 90.1 fL Normal 80-94 [facility] Comment on above: Order Comment: 109.1 Performed By: #### L 100.0100 ####[facility] [address] [place], [address] Monocytes/100 WBC (Bld) 7.1 % Normal 0-10 [facility] Comment on above: Order Comment: 109.1 Performed By: #### L 100.0100 ####[facility] [address] [place], [address] Neutrophils/100 WBC (Bld) 64.2 % Normal 47-70 [facility] Comment on above: Order Comment: 109.1 Performed By: #### L 100.0100 ####[facility] [address] [place], [address] Nucleated RBC (Bld) [#/Vol] 0 10*3/uL Normal 0-5 [facility] Comment on above: Order Comment: 109.1 Performed By: #### L 100.0100 ####[facility] [address] [place], [address] Platelet mean volume (Bld) [Entitic vol] 11.2 fL Normal 6.2-12.0 [facility] Comment on above: Order Comment: 109.1 Performed By: #### L 100.0100 ####[facility] [address] [place], [address] Platelets (Bld) [#/Vol] 188 10*3/uL Normal 150-450 [facility] Comment on above: Order Comment: 109.1 Performed By: #### L 100.0100 ####[facility] [address] [place], [address] RBC (Bld) [#/Vol] 4.65 10*6/uL Normal 4.6-6.2 [facility] Comment on above: Order Comment: 109.1 Performed By: #### L 100.0100 ####[facility] [address] [place], [address] RDW SD 41.6 fl Normal 35.1-43.9 [facility] Comment on above: Order Comment: 109.1 Performed By: #### L 100.0100 ####[facility] [address] [place], [address] WBC (Bld) [#/Vol] 7.8 10*3/uL Normal 4.4-11.0 [facility] Comment on above: Order Comment: 109.1 Performed By: #### L 100.0100 ####[facility] [address] [place], [address] Eosinophil percentageOrdered By: Renard Burgos on 08-12-2024 Eosinophils/100 WBC (Bld) 0.9 % 0-5 [facility] Erythrocyte distribution wid th (RBC) [Ratio]Ordered By: Renard Burgos on 08-12-2024 Erythrocyte distribution width (RBC) [Entitic vol] 41.6 fL 35.1-43.9 [facility] Erythrocyte distribution wid th ratioOrdered By: Renard Burgos on 08-12-2024 Erythrocyte distribution width (RBC) [Ratio] 12.7 % 11.6-14.6 [facility] Erythrocyte distribution wid th standard deviationOrdered By: Renard Burgos on 08-12-2024 Erythrocyte distribution width (RBC) [Ratio] 41.6 fl 35.1-43.9 [facility] Hematocrit Auto (Bld) [Volum e fraction]Ordered By: Renard Burgos on 08-12-2024 Hematocrit (Bld) [Volume fraction] 41.9 % 40-54 [facility] Hemoglobin measurementOrdere d By: Renard Burgos on 08-12-2024 Hemoglobin (Bld) [Mass/Vol] 14.1 g/dL 13.0-16.5 [facility] Immature granulocytes/100 WB C Auto (Bld)Ordered By: Renard Burgos on 08-12-2024 Immature granulocytes/100 WBC (Bld) 0.300 % 0.0-0.9 [facility] Comment on above: IG% - Immature Granu locytes (promyelocytes, myelocytes and metamyelocytes) > 1% indicates that a LEFT SHIFT is Present. Lymphocytes Auto (Unsp spec) [#/Vol]Ordered By: Renard Burgos on 08-12-2024 Lymphocytes (Bld) [#/Vol] 2.09 10*3/uL 0.83-4.51 [facility] Lymphocytes/100 WBC Auto (Un sp spec)Ordered By: Renard Burgos on 08-12-2024 Lymphocytes/100 WBC (Bld) 27.0 % 19-41 [facility] MCV (mean corpuscular volume ) determinationOrdered By: Renard Burgos on 08-12-2024 MCV (RBC) [Entitic vol] 90.1 fL 80-94 [facility] Mean corpuscular hemoglobin (MCH) determinationOrdered By: Renard Burgos on 08-12-2024 MCH (RBC) [Entitic mass] 30.3 pg 27.0-32.0 [facility] Mean corpuscular hemoglobin concentration (MCHC) determinationOrdered By: Renard Burgos on 08-12-2024 MCHC (RBC) [Mass/Vol] 33.7 g/dL 32-36 [facility] Mean platelet volume determi nationOrdered By: Renard Burgos on 08-12-2024 Platelet mean volume (Bld) [Entitic vol] 11.2 fL 6.2-12.0 [facility] Monocyte percentageOrdered B y: Renard Burgos on 08-12-2024 Monocytes/100 WBC (Bld) 7.1 % 0-10 [facility] Neutrophil percentageOrdered By: Renard Burgos on 08-12-2024 Neutrophils/100 WBC (Bld) 64.2 % 47-70 [facility] Nucleated red blood cell per centageOrdered By: Renard Burgos on 08-12-2024 Nucleated RBC/100 WBC (Bld) [Ratio] 0 % 0-5 [facility] Platelet countOrdered By: Garrick Bhatt on 08-12-2024 Platelets (Bld) [#/Vol] 188 10*3/uL 150-450 [facility] RBC Auto (Bld) [#/Vol]Ordere d By: Renard Burgos on 08-12-2024 RBC (Bld) [#/Vol] 4.65 10*6/uL 4.6-6.2 [facility] White blood cell (WBC) count Ordered By: Renard Burgos on 08-12-2024 WBC (Bld) [#/Vol] 7.8 10*3/uL 4.4-11.0 [facility] Absolute lymphocyte countOrd ered By: Renard Burgos on 08-05-2024 Lymphocytes Auto (Unsp spec) [#/Vol] 2.31 10*3/uL 0.83-4.51 [facility] Absolute neutrophil countOrd ered By: Renard Burgos on 08-05-2024 Neutrophils (Bld) [#/Vol] 5.4 10*3/uL 2.0-7.7 [facility] Automated lymphocyte count a s percentage of total leukocytesOrdered By: Renard Burgos on 08-05-2024 Lymphocytes/100 WBC Auto (Unsp spec) 26.9 % 19-41 [facility] Basophil percentageOrdered B y: Renard Burgos on 08-05-2024 Basophils/100 WBC (Bld) 0.6 % 0-1 [facility] CBC W/Diff, Automatedon - Absolute Lymph 2.31 X10 3/uL Normal 0.83-4.51 [facility] Comment on above: Order Comment: 109.1 Performed By: #### L 100.0100 ####[facility] [address] [place], [address] Absolute Neut 5.4 X10 3/uL Normal 2.0-7.7 [facility] Comment on above: Order Comment: 109.1 Performed By: #### L 100.0100 ####[facility] [address] [place], [address] Basophils/100 WBC (Bld) 0.6 % Normal 0-1 [facility] Comment on above: Order Comment: 109.1 Performed By: #### L 100.0100 ####[facility] [address] [place], [address] Eosinophils/100 WBC (Bld) 0.8 % Normal 0-5 [facility] Comment on above: Order Comment: 109.1 Performed By: #### L 100.0100 ####[facility] [address] [place], [address] Erythrocyte distribution width (RBC) [Ratio] 12.7 % Normal 11.6-14.6 [facility] Comment on above: Order Comment: 109.1 Performed By: #### L 100.0100 ####[facility] [address] [place], [address] Hematocrit (Bld) [Volume fraction] 41.6 % Normal 40-54 [facility] Comment on above: Order Comment: 109.1 Performed By: #### L 100.0100 ####[facility] [address] [place], [address] Hemoglobin (Bld) [Mass/Vol] 13.7 g/dL Normal 13.0-16.5 [facility] Comment on above: Order Comment: 109.1 Performed By: #### L 100.0100 ####[facility] [address] [place], [address] IG% 0.300 Normal 0.0-0.9 [facility] Comment on above: Order Comment: 109.1 Result Comment: IG% - Immature Granulocytes (promyelocytes, myelocytes andmetamyelocytes) > 1% indicates that a LEFT SHIFT is Present. Performed By: #### L 100.0100 ####[facility] [address] [place], [address] Lymphocytes/100 WBC (Bld) 26.9 % Normal 19-41 [facility] Comment on above: Order Comment: 109.1 Performed By: #### L 100.0100 ####[facility] [address] [place], [address] MCH (RBC) [Entitic mass] 30.1 pg Normal 27.0-32.0 [facility] Comment on above: Order Comment: 109.1 Performed By: #### L 100.0100 ####[facility] [address] [place], [address] MCHC (RBC) [Mass/Vol] 32.9 g/dL Normal 32-36 [facility] Comment on above: Order Comment: 109.1 Performed By: #### L 100.0100 ####[facility] [address] [place], [address] MCV (RBC) [Entitic vol] 91.4 fL Normal 80-94 [facility] Comment on above: Order Comment: 109.1 Performed By: #### L 100.0100 ####[facility] [address] [place], [address] Monocytes/100 WBC (Bld) 8.3 % Normal 0-10 [facility] [facility] Comment on above: Order Comment: 109.1 Performed By: #### L 100.0100 ####[facility] [address] [place], [address] Neutrophils/100 WBC (Bld) 63.1 % Normal 47-70 [facility] Comment on above: Order Comment: 109.1 Performed By: #### L 100.0100 ####[facility] [address] [place], [address] Nucleated RBC (Bld) [#/Vol] 0 10*3/uL Normal 0-5 [facility] Comment on above: Order Comment: 109.1 Performed By: #### L 100.0100 ####[facility] [address] [place], [address] Platelet mean volume (Bld) [Entitic vol] 11.1 fL Normal 6.2-12.0 [facility] Comment on above: Order Comment: 109.1 Performed By: #### L 100.0100 ####[facility] [address] [place], [address] Platelets (Bld) [#/Vol] 199 10*3/uL Normal 150-450 [facility] Comment on above: Order Comment: 109.1 Performed By: #### L 100.0100 ####[facility] [address] [place], [address] RBC (Bld) [#/Vol] 4.55 10*6/uL Low 4.6-6.2 [facility] Comment on above: Order Comment: 109.1 Performed By: #### L 100.0100 ####[facility] [address] [place], [address] RDW SD 42.5 fl Normal 35.1-43.9 [facility] Comment on above: Order Comment: 109.1 Performed By: #### L 100.0100 ####[facility] [address] [place], [address] WBC (Bld) [#/Vol] 8.6 10*3/uL Normal 4.4-11.0 [facility] Comment on above: Order Comment: 109.1 Performed By: #### L 100.0100 ####[facility] [address] [place], [address] Eosinophil percentageOrdered By: Renard Burgos on 08-05-2024 Eosinophils/100 WBC (Bld) 0.8 % 0-5 [facility] Erythrocyte distribution wid th (RBC) [Ratio]Ordered By: Renard Burgos on 08-05-2024 Erythrocyte distribution width (RBC) [Entitic vol] 42.5 fL 35.1-43.9 [facility] Erythrocyte distribution wid th ratioOrdered By: Renard Burgos on 08-05-2024 Erythrocyte distribution width (RBC) [Ratio] 12.7 % 11.6-14.6 [facility] Erythrocyte distribution wid th standard deviationOrdered By: Renard Burgos on 08-05-2024 Erythrocyte distribution width (RBC) [Ratio] 42.5 fl 35.1-43.9 [facility] Hematocrit Auto (Bld) [Volum e fraction]Ordered By: Renard Burgos on 08-05-2024 Hematocrit (Bld) [Volume fraction] 41.6 % 40-54 [facility] Hemoglobin measurementOrdere d By: Renard Burgos on 08-05-2024 Hemoglobin (Bld) [Mass/Vol] 13.7 g/dL 13.0-16.5 [facility] Immature granulocytes/100 WB C Auto (Bld)Ordered By: Renard Burgos on 08-05-2024 Immature granulocytes/100 WBC (Bld) 0.300 % 0.0-0.9 [facility] Comment on above: IG% - Immature Granu locytes (promyelocytes, myelocytes and metamyelocytes) > 1% indicates that a LEFT SHIFT is Present. Lymphocytes Auto (Unsp spec) [#/Vol]Ordered By: Renard Burgos on 08-05-2024 Lymphocytes (Bld) [#/Vol] 2.31 10*3/uL 0.83-4.51 [facility] Lymphocytes/100 WBC Auto (Un sp spec)Ordered By: Renard Burgos on 08-05-2024 Lymphocytes/100 WBC (Bld) 26.9 % 19-41 [facility] MCV (mean corpuscular volume ) determinationOrdered By: Renard Burgos on 08-05-2024 MCV (RBC) [Entitic vol] 91.4 fL 80-94 [facility] Mean corpuscular hemoglobin (MCH) determinationOrdered By: Renard Burgos on 08-05-2024 MCH (RBC) [Entitic mass] 30.1 pg 27.0-32.0 [facility] Mean corpuscular hemoglobin concentration (MCHC) determinationOrdered By: Renard Burgos on 08-05-2024 MCHC (RBC) [Mass/Vol] 32.9 g/dL 32-36 [facility] Mean platelet volume determi nationOrdered By: Renard Burgos on 08-05-2024 Platelet mean volume (Bld) [Entitic vol] 11.1 fL 6.2-12.0 [facility] Monocyte percentageOrdered B y: Renard Burgos on 08-05-2024 Monocytes/100 WBC (Bld) 8.3 % 0-10 [facility] Neutrophil percentageOrdered By: Renard Burgos on 08-05-2024 Neutrophils/100 WBC (Bld) 63.1 % 47-70 [facility] Nucleated red blood cell per centageOrdered By: Renard Burgos on 08-05-2024 Nucleated RBC/100 WBC (Bld) [Ratio] 0 % 0-5 [facility] Platelet countOrdered By: Garrick Bhatt on 08-05-2024 Platelets (Bld) [#/Vol] 199 10*3/uL 150-450 [facility] RBC Auto (Bld) [#/Vol]Ordere d By: Renard Burgos on 08-05-2024 RBC (Bld) [#/Vol] 4.55 10*6/uL Low 4.6-6.2 [facility] White blood cell (WBC) count Ordered By: Renard Burgos on 08-05-2024 WBC (Bld) [#/Vol] 8.6 10*3/uL 4.4-11.0 [facility] Absolute lymphocyte countOrd ered By: Renard Burgos on 07-29-2024 Lymphocytes Auto (Unsp spec) [#/Vol] 1.93 10*3/uL 0.83-4.51 [facility] Absolute neutrophil countOrd ered By: Renard Burgos on 07-29-2024 Neutrophils (Bld) [#/Vol] 6.8 10*3/uL 2.0-7.7 [facility] Automated lymphocyte count a s percentage of total leukocytesOrdered By: Renard Burgos on 07-29-2024 Lymphocytes/100 WBC Auto (Unsp spec) 20.2 % 19-41 [facility] Basophil percentageOrdered B y: Renard Burgos on 07-29-2024 Basophils/100 WBC (Bld) 0.5 % 0-1 [facility] CBC W/Diff, Automatedon 07-01 Absolute Lymph 1.93 X10 3/uL Normal 0.83-4.51 [facility] Comment on above: Order Comment: 109-1 Performed By: #### L 100.0100 ####[facility] [address] [place], [address] Absolute Neut 6.8 X10 3/uL Normal 2.0-7.7 [facility] Comment on above: Order Comment: 109-1 Performed By: #### L 100.0100 ####[facility] [address] [place], [address] Basophils/100 WBC (Bld) 0.5 % Normal 0-1 [facility] Comment on above: Order Comment: 109-1 Performed By: #### L 100.0100 ####[facility] [address] [place], [address] Eosinophils/100 WBC (Bld) 0.7 % Normal 0-5 [facility] Comment on above: Order Comment: 109-1 Performed By: #### L 100.0100 ####[facility] [address] [place], [address] Erythrocyte distribution width (RBC) [Ratio] 12.8 % Normal 11.6-14.6 [facility] Comment on above: Order Comment: 109-1 Performed By: #### L 100.0100 ####[facility] [address] [place], [address] Hematocrit (Bld) [Volume fraction] 40.7 % Normal 40-54 [facility] Comment on above: Order Comment: 109-1 Performed By: #### L 100.0100 ####[facility] [address] [place], [address] Hemoglobin (Bld) [Mass/Vol] 13.5 g/dL Normal 13.0-16.5 [facility] Comment on above: Order Comment: 109-1 Performed By: #### L 100.0100 ####[facility] [address] [place], [address] IG% 0.400 Normal 0.0-0.9 [facility] Comment on above: Order Comment: 109-1 Result Comment: IG% - Immature Granulocytes (promyelocytes, myelocytes andmetamyelocytes) > 1% indicates that a LEFT SHIFT is Present. Performed By: #### L 100.0100 ####[facility] [address] [place], [address] Lymphocytes/100 WBC (Bld) 20.2 % Normal 19-41 [facility] Comment on above: Order Comment: 109-1 Performed By: #### L 100.0100 ####[facility] [address] [place], [address] MCH (RBC) [Entitic mass] 29.9 pg Normal 27.0-32.0 [facility] Comment on above: Order Comment: 109-1 Performed By: #### L 100.0100 ####[facility] [address] [place], [address] MCHC (RBC) [Mass/Vol] 33.2 g/dL Normal 32-36 [facility] Comment on above: Order Comment: 109-1 Performed By: #### L 100.0100 ####[facility] [address] [place], [address] MCV (RBC) [Entitic vol] 90.0 fL Normal 80-94 [facility] Comment on above: Order Comment: 109-1 Performed By: #### L 100.0100 ####[facility] [address] [place], [address] Monocytes/100 WBC (Bld) 7.1 % Normal 0-10 [facility] Comment on above: Order Comment: 109-1 Performed By: #### L 100.0100 ####[facility] [address] [place], [address] Neutrophils/100 WBC (Bld) 71.1 % High 47-70 [facility] Comment on above: Order Comment: 109-1 Performed By: #### L 100.0100 ####[facility] [address] [place], [address] Nucleated RBC (Bld) [#/Vol] 0 10*3/uL Normal 0-5 [facility] Comment on above: Order Comment: 109-1 Performed By: #### L 100.0100 ####[facility] [address] [place], [address] Platelet mean volume (Bld) [Entitic vol] 11.2 fL Normal 6.2-12.0 [facility] Comment on above: Order Comment: 109-1 Performed By: #### L 100.0100 ####[facility] [address] [place], [address] Platelets (Bld) [#/Vol] 218 10*3/uL Normal 150-450 [facility] Comment on above: Order Comment: 109-1 Performed By: #### L 100.0100 ####[facility] [address] [place], [address] RBC (Bld) [#/Vol] 4.52 10*6/uL Low 4.6-6.2 [facility] Comment on above: Order Comment: 109-1 Performed By: #### L 100.0100 ####[facility] [address] [place], [address] RDW SD 41.9 fl Normal 35.1-43.9 [facility] Comment on above: Order Comment: 109-1 Performed By: #### L 100.0100 ####[facility] [address] [place], [address] WBC (Bld) [#/Vol] 9.6 10*3/uL Normal 4.4-11.0 [facility] Comment on above: Order Comment: 109-1 Performed By: #### L 100.0100 ####[facility] [address] [place], [address] Eosinophil percentageOrdered By: Renard Burgos on 07-29-2024 Eosinophils/100 WBC (Bld) 0.7 % 0-5 [facility] Erythrocyte distribution wid th ratioOrdered By: Renard Burgos on 07-29-2024 Erythrocyte distribution width (RBC) [Ratio] 12.8 % 11.6-14.6 [facility] Erythrocyte distribution wid th standard deviationOrdered By: Renard Burgos on 07-29-2024 Erythrocyte distribution width (RBC) [Entitic vol] 41.9 fL 35.1-43.9 [facility] Erythrocyte distribution width (RBC) [Ratio] 41.9 fl 35.1-43.9 [facility] Hematocrit Auto (Bld) [Volum e fraction]Ordered By: Renard Burgos on 07-29-2024 Hematocrit (Bld) [Volume fraction] 40.7 % 40-54 [facility] Hemoglobin measurementOrdere d By: Renard Burgos on 07-29-2024 Hemoglobin (Bld) [Mass/Vol] 13.5 g/dL 13.0-16.5 [facility] Immature granulocytes/100 WB C Auto (Bld)Ordered By: Renard Burgos on 07-29-2024 Immature granulocytes/100 WBC (Bld) 0.400 % 0.0-0.9 [facility] Comment on above: IG% - Immature Granu locytes (promyelocytes, myelocytes and metamyelocytes) > 1% indicates that a LEFT SHIFT is Present. Lymphocytes Auto (Unsp spec) [#/Vol]Ordered By: Renard Burgos on 07-29-2024 Lymphocytes (Bld) [#/Vol] 1.93 10*3/uL 0.83-4.51 [facility] Lymphocytes/100 WBC Auto (Un sp spec)Ordered By: Renard Burogs on 07-29-2024 Lymphocytes/100 WBC (Bld) 20.2 % 19-41 [facility] MCV (mean corpuscular volume ) determinationOrdered By: Renard Burgos on 07-29-2024 MCV (RBC) [Entitic vol] 90.0 fL 80-94 [facility] Mean corpuscular hemoglobin (MCH) determinationOrdered By: Renard Burgos on 07-29-2024 MCH (RBC) [Entitic mass] 29.9 pg 27.0-32.0 [facility] Mean corpuscular hemoglobin concentration (MCHC) determinationOrdered By: Renard Burgos on 07-29-2024 MCHC (RBC) [Mass/Vol] 33.2 g/dL 32-36 [facility] Mean platelet volume determi nationOrdered By: Renard Burgos on 07-29-2024 Platelet mean volume (Bld) [Entitic vol] 11.2 fL 6.2-12.0 [facility] Monocyte percentageOrdered B y: Renard Burgos on 07-29-2024 Monocytes/100 WBC (Bld) 7.1 % 0-10 [facility] Neutrophil percentageOrdered By: Renard Burgos on 07-29-2024 Neutrophils/100 WBC (Bld) 71.1 % High 47-70 [facility] Nucleated red blood cell per centageOrdered By: Renard Burgos on 07-29-2024 Nucleated RBC/100 WBC (Bld) [Ratio] 0 % 0-5 [facility] Platelet countOrdered By: Garrick Bhatt on 07-29-2024 Platelets (Bld) [#/Vol] 218 10*3/uL 150-450 [facility] RBC Auto (Bld) [#/Vol]Ordere d By: Renard Burgos on 07-29-2024 RBC (Bld) [#/Vol] 4.52 10*6/uL Low 4.6-6.2 [facility] White blood cell (WBC) count Ordered By: Renard Burgos on 07-29-2024 WBC (Bld) [#/Vol] 9.6 10*3/uL 4.4-11.0 [facility] Absolute lymphocyte countOrd ered By: Renard Burgos on 07-22-2024 Lymphocytes Auto (Unsp spec) [#/Vol] 1.90 10*3/uL 0.83-4.51 [facility] Absolute neutrophil countOrd ered By: Renard Burgos on 07-22-2024 Neutrophils (Bld) [#/Vol] 5.2 10*3/uL 2.0-7.7 [facility] Automated lymphocyte count a s percentage of total leukocytesOrdered By: Renard Burgos on 07-22-2024 Lymphocytes/100 WBC Auto (Unsp spec) 23.9 % 19-41 [facility] Basophil percentageOrdered B y: Renard Burgos on 07-22-2024 Basophils/100 WBC (Bld) 0.6 % 0-1 [facility] CBC W/Diff, Automatedon 06-30 Absolute Lymph 1.90 X10 3/uL Normal 0.83-4.51 [facility] Comment on above: Order Comment: 109.1 Performed By: #### L 100.0100 ####[facility] [address] [place], [place], [address] Absolute Neut 5.2 X10 3/uL Normal 2.0-7.7 [facility] Comment on above: Order Comment: 109.1 Performed By: #### L 100.0100 ####[facility] [address] [place], [address] Basophils/100 WBC (Bld) 0.6 % Normal 0-1 [facility] Comment on above: Order Comment: 109.1 Performed By: #### L 100.0100 ####[facility] [address] [place], [address] Eosinophils/100 WBC (Bld) 0.9 % Normal 0-5 [facility] Comment on above: Order Comment: 109.1 Performed By: #### L 100.0100 ####[facility] [address] [place], [address] Erythrocyte distribution width (RBC) [Ratio] 12.9 % Normal 11.6-14.6 [facility] Comment on above: Order Comment: 109.1 Performed By: #### L 100.0100 ####[facility] [address] [place], [address] Hematocrit (Bld) [Volume fraction] 41.4 % Normal 40-54 [facility] Comment on above: Order Comment: 109.1 Performed By: #### L 100.0100 ####[facility] [address] [place], [address] Hemoglobin (Bld) [Mass/Vol] 13.5 g/dL Normal 13.0-16.5 [facility] Comment on above: Order Comment: 109.1 Performed By: #### L 100.0100 ####[facility] [address] [place], [address] IG% 0.300 Normal 0.0-0.9 [facility] Comment on above: Order Comment: 109.1 Result Comment: IG% - Immature Granulocytes (promyelocytes, myelocytes andmetamyelocytes) > 1% indicates that a LEFT SHIFT is Present. Performed By: #### L 100.0100 ####[facility] [address] [place], [address] Lymphocytes/100 WBC (Bld) 23.9 % Normal 19-41 [facility] Comment on above: Order Comment: 109.1 Performed By: #### L 100.0100 ####[facility] [address] [place], [address] MCH (RBC) [Entitic mass] 29.8 pg Normal 27.0-32.0 [facility] Comment on above: Order Comment: 109.1 Performed By: #### L 100.0100 ####[facility] [address] [place], [address] MCHC (RBC) [Mass/Vol] 32.6 g/dL Normal 32-36 [facility] Comment on above: Order Comment: 109.1 Performed By: #### L 100.0100 ####[facility] [address] [place], [address] MCV (RBC) [Entitic vol] 91.4 fL Normal 80-94 [facility] Comment on above: Order Comment: 109.1 Performed By: #### L 100.0100 ####[facility] [address] [place], [address] Monocytes/100 WBC (Bld) 9.4 % Normal 0-10 [facility] Comment on above: Order Comment: 109.1 Performed By: #### L 100.0100 ####[facility] [address] [place], [address] Neutrophils/100 WBC (Bld) 64.9 % Normal 47-70 [facility] Comment on above: Order Comment: 109.1 Performed By: #### L 100.0100 ####[facility] [address] [place], [address] Nucleated RBC (Bld) [#/Vol] 0 10*3/uL Normal 0-5 [facility] Comment on above: Order Comment: 109.1 Performed By: #### L 100.0100 ####[facility] [address] [place], [address] Platelet mean volume (Bld) [Entitic vol] 11.5 fL Normal 6.2-12.0 [facility] Comment on above: Order Comment: 109.1 Performed By: #### L 100.0100 ####[facility] [address] [place], [address] Platelets (Bld) [#/Vol] 202 10*3/uL Normal 150-450 [facility] Comment on above: Order Comment: 109.1 Performed By: #### L 100.0100 ####[facility] [address] [place], [address] RBC (Bld) [#/Vol] 4.53 10*6/uL Low 4.6-6.2 [facility] Comment on above: Order Comment: 109.1 Performed By: #### L 100.0100 ####[facility] [address] [place], [address] RDW SD 42.7 fl Normal 35.1-43.9 [facility] Comment on above: Order Comment: 109.1 Performed By: #### L 100.0100 ####[facility] [address] [place], [address] WBC (Bld) [#/Vol] 8.0 10*3/uL Normal 4.4-11.0 [facility] Comment on above: Order Comment: 109.1 Performed By: #### L 100.0100 ####[facility] [address] [place], [address] Eosinophil percentageOrdered By: Renard Burgos on 07-22-2024 Eosinophils/100 WBC (Bld) 0.9 % 0-5 [facility] Erythrocyte distribution wid th ratioOrdered By: Renard Burgos on 07-22-2024 Erythrocyte distribution width (RBC) [Ratio] 12.9 % 11.6-14.6 [facility] Erythrocyte distribution wid th standard deviationOrdered By: Renard Burgos on 07-22-2024 Erythrocyte distribution width (RBC) [Entitic vol] 42.7 fL 35.1-43.9 [facility] Erythrocyte distribution width (RBC) [Ratio] 42.7 fl 35.1-43.9 [facility] Hematocrit Auto (Bld) [Volum e fraction]Ordered By: Renard Burgos on 07-22-2024 Hematocrit (Bld) [Volume fraction] 41.4 % 40-54 [facility] Hemoglobin measurementOrdere d By: Renard Burgos on 07-22-2024 Hemoglobin (Bld) [Mass/Vol] 13.5 g/dL 13.0-16.5 [facility] Immature granulocytes/100 WB C Auto (Bld)Ordered By: Renard Burgos on 07-22-2024 Immature granulocytes/100 WBC (Bld) 0.300 % 0.0-0.9 [facility] Comment on above: IG% - Immature Granu locytes (promyelocytes, myelocytes and metamyelocytes) > 1% indicates that a LEFT SHIFT is Present. Lymphocytes Auto (Unsp spec) [#/Vol]Ordered By: Renard Burgos on 07-22-2024 Lymphocytes (Bld) [#/Vol] 1.90 10*3/uL 0.83-4.51 [facility] Lymphocytes/100 WBC Auto (Un sp spec)Ordered By: Renard Burgos on 07-22-2024 Lymphocytes/100 WBC (Bld) 23.9 % 19-41 [facility] MCV (mean corpuscular volume ) determinationOrdered By: Renard Burgos on 07-22-2024 MCV (RBC) [Entitic vol] 91.4 fL 80-94 [facility] Mean corpuscular hemoglobin (MCH) determinationOrdered By: Renard Burgos on 07-22-2024 MCH (RBC) [Entitic mass] 29.8 pg 27.0-32.0 [facility] Mean corpuscular hemoglobin concentration (MCHC) determinationOrdered By: Renard Burgos on 07-22-2024 MCHC (RBC) [Mass/Vol] 32.6 g/dL 32-36 [facility] Mean platelet volume determi nationOrdered By: Renard Burgos on 07-22-2024 Platelet mean volume (Bld) [Entitic vol] 11.5 fL 6.2-12.0 [facility] Monocyte percentageOrdered B y: Renard Burgos on 07-22-2024 Monocytes/100 WBC (Bld) 9.4 % 0-10 [facility] Neutrophil percentageOrdered By: Renard Burgos on 07-22-2024 Neutrophils/100 WBC (Bld) 64.9 % 47-70 [facility] Nucleated red blood cell per centageOrdered By: Renard Burgos on 07-22-2024 Nucleated RBC/100 WBC (Bld) [Ratio] 0 % 0-5 [facility] Platelet countOrdered By: Garrick Bhatt on 07-22-2024 Platelets (Bld) [#/Vol] 202 10*3/uL 150-450 [facility] RBC Auto (Bld) [#/Vol]Ordere d By: Renard Burgos on 07-22-2024 RBC (Bld) [#/Vol] 4.53 10*6/uL Low 4.6-6.2 [facility] White blood cell (WBC) count Ordered By: Renard Burgos on 07-22-2024 WBC (Bld) [#/Vol] 8.0 10*3/uL 4.4-11.0 [facility] L506.1001on 07-16-2024 Vitamin D 25-OH 21.8 ng/mL Low 30-100 [facility] Comment on above: Order Comment: 109 Result Comment: Edilma min D StatusDeficiency: <20 ng/mL (50nmol/L)Insufficiency: 20-30 ng/mL (50-75 nmol/L)Sufficiency: 30-100 ng/mL (75-250 nmol/L)Toxicity: >100 ng/mL (>250 nmol/L) Performed By: #### L 506.1001 ####[facility] [address] [place], [address] Vitamin D, 25-hydroxyOrdered By: Renard Burgos on 07-16-2024 Vitamin D 25-Hydroxy 21.8 ng/mL Low 30-100 [facility] Comment on above: Vitamin D StatusDefi ciency: <20 ng/mL (50nmol/L)Insufficiency: 20-30 ng/mL (50-75 nmol/L)Sufficiency: 30-100 ng/mL (75-250 nmol/L)Toxicity: >100 ng/mL (>250 nmol/L) Absolute lymphocyte countOrd ered By: Renard Burgos on 07-15-2024 Lymphocytes Auto (Unsp spec) [#/Vol] 2.10 10*3/uL 0.83-4.51 [facility] Absolute neutrophil countOrd ered By: Renard Burgos on 07-15-2024 Neutrophils (Bld) [#/Vol] 6.9 10*3/uL 2.0-7.7 [facility] Automated lymphocyte count a s percentage of total leukocytesOrdered By: Renard Burgos on 07-15-2024 Lymphocytes/100 WBC Auto (Unsp spec) 21.0 % 19-41 [facility] Basophil percentageOrdered B y: Renard Burgos on 07-15-2024 Basophils/100 WBC (Bld) 0.5 % 0-1 [facility] CBC W/Diff, Automatedon 06-29 Absolute Lymph 2.10 X10 3/uL Normal 0.83-4.51 [facility] Comment on above: Order Comment: 109.1 Performed By: #### L 100.0100 ####[facility] [address] [place], [address] Absolute Neut 6.9 X10 3/uL Normal 2.0-7.7 [facility] Comment on above: Order Comment: 109.1 Performed By: #### L 100.0100 ####[facility] [address] [place], [address] Basophils/100 WBC (Bld) 0.5 % Normal 0-1 [facility] Comment on above: Order Comment: 109.1 Performed By: #### L 100.0100 ####[facility] [address] [place], [address] Eosinophils/100 WBC (Bld) 1.2 % Normal 0-5 [facility] Comment on above: Order Comment: 109.1 Performed By: #### L 100.0100 ####[facility] [address] [place], [address] Erythrocyte distribution width (RBC) [Ratio] 12.9 % Normal 11.6-14.6 [facility] Comment on above: Order Comment: 109.1 Performed By: #### L 100.0100 ####[facility] [address] [place], [address] Hematocrit (Bld) [Volume fraction] 41.0 % Normal 40-54 [facility] Comment on above: Order Comment: 109.1 Performed By: #### L 100.0100 ####[facility] [address] [place], [address] Hemoglobin (Bld) [Mass/Vol] 13.4 g/dL Normal 13.0-16.5 [facility] Comment on above: Order Comment: 109.1 Performed By: #### L 100.0100 ####[facility] [address] [place], [address] IG% 0.300 Normal 0.0-0.9 [facility] Comment on above: Order Comment: 109.1 Result Comment: IG% - Immature Granulocytes (promyelocytes, myelocytes andmetamyelocytes) > 1% indicates that a LEFT SHIFT is Present. Performed By: #### L 100.0100 ####[facility] [address] [place], [address] Lymphocytes/100 WBC (Bld) 21.0 % Normal 19-41 [facility] Comment on above: Order Comment: 109.1 Performed By: #### L 100.0100 ####[facility] [address] [place], [address] MCH (RBC) [Entitic mass] 29.7 pg Normal 27.0-32.0 [facility] Comment on above: Order Comment: 109.1 Performed By: #### L 100.0100 ####[facility] [address] [place], [address] MCHC (RBC) [Mass/Vol] 32.7 g/dL Normal 32-36 [facility] Comment on above: Order Comment: 109.1 Performed By: #### L 100.0100 ####[facility] [address] [place], [address] MCV (RBC) [Entitic vol] 90.9 fL Normal 80-94 [facility] Comment on above: Order Comment: 109.1 Performed By: #### L 100.0100 ####[facility] [address] [place], [address] Monocytes/100 WBC (Bld) 7.6 % Normal 0-10 [facility] Comment on above: Order Comment: 109.1 Performed By: #### L 100.0100 ####[facility] [address] [place], [address] Neutrophils/100 WBC (Bld) 69.4 % Normal 47-70 [facility] Comment on above: Order Comment: 109.1 Performed By: #### L 100.0100 ####[facility] [address] [place], [address] Nucleated RBC (Bld) [#/Vol] 0 10*3/uL Normal 0-5 [facility] Comment on above: Order Comment: 109.1 Performed By: #### L 100.0100 ####[facility] [address] [place], [address] Platelet mean volume (Bld) [Entitic vol] 11.4 fL Normal 6.2-12.0 [facility] Comment on above: Order Comment: 109.1 Performed By: #### L 100.0100 ####[facility] [address] [place], [address] Platelets (Bld) [#/Vol] 206 10*3/uL Normal 150-450 [facility] Comment on above: Order Comment: 109.1 Performed By: #### L 100.0100 ####[facility] [address] [place], [address] RBC (Bld) [#/Vol] 4.51 10*6/uL Low 4.6-6.2 [facility] Comment on above: Order Comment: 109.1 Performed By: #### L 100.0100 ####[facility] [address] [place], [address] RDW SD 42.3 fl Normal 35.1-43.9 [facility] Comment on above: Order Comment: 109.1 Performed By: #### L 100.0100 ####[facility] [address] [place], [address] WBC (Bld) [#/Vol] 10.0 10*3/uL Normal 4.4-11.0 [facility] Comment on above: Order Comment: 109.1 Performed By: #### L 100.0100 ####[facility] [address] [place], [address] Eosinophil percentageOrdered By: Renard Burgos on 07-15-2024 Eosinophils/100 WBC (Bld) 1.2 % 0-5 [facility] Erythrocyte distribution wid th ratioOrdered By: Renard Burgos on 07-15-2024 Erythrocyte distribution width (RBC) [Ratio] 12.9 % 11.6-14.6 [facility] Erythrocyte distribution wid th standard deviationOrdered By: Renard Burgos on 07-15-2024 Erythrocyte distribution width (RBC) [Entitic vol] 42.3 fL 35.1-43.9 [facility] Erythrocyte distribution width (RBC) [Ratio] 42.3 fl 35.1-43.9 [facility] Hematocrit Auto (Bld) [Volum e fraction]Ordered By: Renard Burgos on 07-15-2024 Hematocrit (Bld) [Volume fraction] 41.0 % 40-54 [facility] Hemoglobin measurementOrdere d By: Renard Burgos on 07-15-2024 Hemoglobin (Bld) [Mass/Vol] 13.4 g/dL 13.0-16.5 [facility] Immature granulocytes/100 WB C Auto (Bld)Ordered By: Renard Burgos on 07-15-2024 Immature granulocytes/100 WBC (Bld) 0.300 % 0.0-0.9 [facility] Comment on above: IG% - Immature Granu locytes (promyelocytes, myelocytes and metamyelocytes) > 1% indicates that a LEFT SHIFT is Present. Lymphocytes Auto (Unsp spec) [#/Vol]Ordered By: Renard Burgos on 07-15-2024 Lymphocytes (Bld) [#/Vol] 2.10 10*3/uL 0.83-4.51 [facility] Lymphocytes/100 WBC Auto (Un sp spec)Ordered By: Renard Burgos on 07-15-2024 Lymphocytes/100 WBC (Bld) 21.0 % 19-41 [facility] MCV (mean corpuscular volume ) determinationOrdered By: Renard Burgos on 07-15-2024 MCV (RBC) [Entitic vol] 90.9 fL 80-94 [facility] Mean corpuscular hemoglobin (MCH) determinationOrdered By: Renard Burgos on 07-15-2024 MCH (RBC) [Entitic mass] 29.7 pg 27.0-32.0 [facility] Mean corpuscular hemoglobin concentration (MCHC) determinationOrdered By: Renard Burgos on 07-15-2024 MCHC (RBC) [Mass/Vol] 32.7 g/dL 32-36 [facility] Mean platelet volume determi nationOrdered By: Renard Burgos on 07-15-2024 Platelet mean volume (Bld) [Entitic vol] 11.4 fL 6.2-12.0 [facility] Monocyte percentageOrdered B y: Renard Burgos on 07-15-2024 Monocytes/100 WBC (Bld) 7.6 % 0-10 [facility] Neutrophil percentageOrdered By: Renard Burgos on 07-15-2024 Neutrophils/100 WBC (Bld) 69.4 % 47-70 [facility] Nucleated red blood cell per centageOrdered By: Renard Burgos on 07-15-2024 Nucleated RBC/100 WBC (Bld) [Ratio] 0 % 0-5 [facility] Platelet countOrdered By: Garrick Bhatt on 07-15-2024 Platelets (Bld) [#/Vol] 206 10*3/uL 150-450 [facility] RBC Auto (Bld) [#/Vol]Ordere d By: Renard Burgos on 07-15-2024 RBC (Bld) [#/Vol] 4.51 10*6/uL Low 4.6-6.2 [facility] White blood cell (WBC) count Ordered By: Renard Burgos on 07-15-2024 WBC (Bld) [#/Vol] 10.0 10*3/uL 4.4-11.0 [facility] Absolute lymphocyte countOrd ered By: Renard Burgos on 07-08-2024 Lymphocytes Auto (Unsp spec) [#/Vol] 2.02 10*3/uL 0.83-4.51 [facility] Absolute neutrophil countOrd ered By: Renard Burgos on 07-08-2024 Neutrophils (Bld) [#/Vol] 7.2 10*3/uL 2.0-7.7 [facility] Automated lymphocyte count a s percentage of total leukocytesOrdered By: Renard Burgos on 07-08-2024 Lymphocytes/100 WBC Auto (Unsp spec) 19.7 % 19-41 [facility] Basophil percentageOrdered B y: Renard Burgos on 07-08-2024 Basophils/100 WBC (Bld) 0.6 % 0-1 [facility] CBC W/Diff, Automatedon 06-29 Absolute Lymph 2.02 X10 3/uL Normal 0.83-4.51 [facility] Comment on above: Order Comment: 109-1 Performed By: #### L 100.0100 ####[facility] [address] [place], [address] Absolute Neut 7.2 X10 3/uL Normal 2.0-7.7 [facility] Comment on above: Order Comment: 109-1 Performed By: #### L 100.0100 ####[facility] [address] [place], [address] Basophils/100 WBC (Bld) 0.6 % Normal 0-1 [facility] Comment on above: Order Comment: 109-1 Performed By: #### L 100.0100 ####[facility] [address] [place], [address] Eosinophils/100 WBC (Bld) 1.5 % Normal 0-5 [facility] Comment on above: Order Comment: 109-1 Performed By: #### L 100.0100 ####[facility] [address] [place], [address] Erythrocyte distribution width (RBC) [Ratio] 12.9 % Normal 11.6-14.6 [facility] Comment on above: Order Comment: 109-1 Performed By: #### L 100.0100 ####[facility] [address] [place], [address] Hematocrit (Bld) [Volume fraction] 40.6 % Normal 40-54 [facility] Comment on above: Order Comment: 109-1 Performed By: #### L 100.0100 ####[facility] [address] [place], [address] Hemoglobin (Bld) [Mass/Vol] 13.6 g/dL Normal 13.0-16.5 [facility] Comment on above: Order Comment: 109-1 Performed By: #### L 100.0100 ####[facility] [address] [place], [address] IG% 0.500 Normal 0.0-0.9 [facility] Comment on above: Order Comment: 109-1 Result Comment: IG% - Immature Granulocytes (promyelocytes, myelocytes andmetamyelocytes) > 1% indicates that a LEFT SHIFT is Present. Performed By: #### L 100.0100 ####[facility] [address] [place], [address] Lymphocytes/100 WBC (Bld) 19.7 % Normal 19-41 [facility] Comment on above: Order Comment: 109-1 Performed By: #### L 100.0100 ####[facility] [address] [place], [address] MCH (RBC) [Entitic mass] 30.5 pg Normal 27.0-32.0 [facility] Comment on above: Order Comment: 109-1 Performed By: #### L 100.0100 ####[facility] [address] [place], [address] MCHC (RBC) [Mass/Vol] 33.5 g/dL Normal 32-36 [facility] Comment on above: Order Comment: 109-1 Performed By: #### L 100.0100 ####[facility] [address] [place], [address] MCV (RBC) [Entitic vol] 91.0 fL Normal 80-94 [facility] Comment on above: Order Comment: 109-1 Performed By: #### L 100.0100 ####[facility] [address] [place], [address] Monocytes/100 WBC (Bld) 7.4 % Normal 0-10 [facility] Comment on above: Order Comment: 109-1 Performed By: #### L 100.0100 ####[facility] [address] [place], [address] Neutrophils/100 WBC (Bld) 70.3 % High 47-70 [facility] Comment on above: Order Comment: 109-1 Performed By: #### L 100.0100 ####[facility] [address] [place], [address] Nucleated RBC (Bld) [#/Vol] 0 10*3/uL Normal 0-5 [facility] Comment on above: Order Comment: 109-1 Performed By: #### L 100.0100 ####[facility] [address] [place], [address] Platelet mean volume (Bld) [Entitic vol] 11.1 fL Normal 6.2-12.0 [facility] Comment on above: Order Comment: 109-1 Performed By: #### L 100.0100 ####[facility] [address] [place], [address] Platelets (Bld) [#/Vol] 207 10*3/uL Normal 150-450 [facility] Comment on above: Order Comment: 109-1 Performed By: #### L 100.0100 ####[facility] [address] [place], [address] RBC (Bld) [#/Vol] 4.46 10*6/uL Low 4.6-6.2 [facility] Comment on above: Order Comment: 109-1 Performed By: #### L 100.0100 ####[facility] [address] [place], [address] RDW SD 42.5 fl Normal 35.1-43.9 [facility] Comment on above: Order Comment: 109-1 Performed By: #### L 100.0100 ####[facility] [address] [place], [address] WBC (Bld) [#/Vol] 10.3 10*3/uL Normal 4.4-11.0 [facility] Comment on above: Order Comment: 109-1 Performed By: #### L 100.0100 ####[facility] [address] [place], [address] Eosinophil percentageOrdered By: Renard Burgos on 07-08-2024 Eosinophils/100 WBC (Bld) 1.5 % 0-5 [facility] Erythrocyte distribution wid th ratioOrdered By: Renard Burgos on 07-08-2024 Erythrocyte distribution width (RBC) [Ratio] 12.9 % 11.6-14.6 [facility] Erythrocyte distribution wid th standard deviationOrdered By: Renard Burgos on 07-08-2024 Erythrocyte distribution width (RBC) [Entitic vol] 42.5 fL 35.1-43.9 [facility] Erythrocyte distribution width (RBC) [Ratio] 42.5 fl 35.1-43.9 [facility] Hematocrit Auto (Bld) [Volum e fraction]Ordered By: Renard Burgos on 07-08-2024 Hematocrit (Bld) [Volume fraction] 40.6 % 40-54 [facility] Hemoglobin measurementOrdere d By: Renard Burgos on 07-08-2024 Hemoglobin (Bld) [Mass/Vol] 13.6 g/dL 13.0-16.5 [facility] Immature granulocytes/100 WB C Auto (Bld)Ordered By: Renard Burgos on 07-08-2024 Immature granulocytes/100 WBC (Bld) 0.500 % 0.0-0.9 [facility] Comment on above: IG% - Immature Granu locytes (promyelocytes, myelocytes and metamyelocytes) > 1% indicates that a LEFT SHIFT is Present. Lymphocytes Auto (Unsp spec) [#/Vol]Ordered By: Renard Burgos on 07-08-2024 Lymphocytes (Bld) [#/Vol] 2.02 10*3/uL 0.83-4.51 [facility] Lymphocytes/100 WBC Auto (Un sp spec)Ordered By: Renard Burgos on 07-08-2024 Lymphocytes/100 WBC (Bld) 19.7 % 19-41 [facility] MCV (mean corpuscular volume ) determinationOrdered By: Renard Burgos on 07-08-2024 MCV (RBC) [Entitic vol] 91.0 fL 80-94 [facility] Mean corpuscular hemoglobin (MCH) determinationOrdered By: Renard Burgos on 07-08-2024 MCH (RBC) [Entitic mass] 30.5 pg 27.0-32.0 [facility] Mean corpuscular hemoglobin concentration (MCHC) determinationOrdered By: Renard Burgos on 07-08-2024 MCHC (RBC) [Mass/Vol] 33.5 g/dL 32-36 [facility] Mean platelet volume determi nationOrdered By: Renard Burgos on 07-08-2024 Platelet mean volume (Bld) [Entitic vol] 11.1 fL 6.2-12.0 [facility] Monocyte percentageOrdered B y: Renard Burgos on 07-08-2024 Monocytes/100 WBC (Bld) 7.4 % 0-10 [facility] Neutrophil percentageOrdered By: Renard Burgos on 07-08-2024 Neutrophils/100 WBC (Bld) 70.3 % High 47-70 [facility] Nucleated red blood cell per centageOrdered By: Renard Burgos on 07-08-2024 Nucleated RBC/100 WBC (Bld) [Ratio] 0 % 0-5 [facility] Platelet countOrdered By: Garrick Bhatt on 07-08-2024 Platelets (Bld) [#/Vol] 207 10*3/uL 150-450 [facility] RBC Auto (Bld) [#/Vol]Ordere d By: Renard Burgos on 07-08-2024 RBC (Bld) [#/Vol] 4.46 10*6/uL Low 4.6-6.2 [facility] White blood cell (WBC) count Ordered By: Renard Burgos on 07-08-2024 WBC (Bld) [#/Vol] 10.3 10*3/uL 4.4-11.0 [facility] Absolute lymphocyte countOrd ered By: Renard Burgos on 07-01-2024 Lymphocytes Auto (Unsp spec) [#/Vol] 2.03 10*3/uL 0.83-4.51 [facility] Absolute neutrophil countOrd ered By: Renard Burgos on 07-01-2024 Neutrophils (Bld) [#/Vol] 7.0 10*3/uL 2.0-7.7 [facility] Automated lymphocyte count a s percentage of total leukocytesOrdered By: Renard Burgos on 07-01-2024 Lymphocytes/100 WBC Auto (Unsp spec) 20.3 % 19-41 [facility] Basophil percentageOrdered B y: Renard Burgos on 07-01-2024 Basophils/100 WBC (Bld) 0.6 % 0-1 [facility] CBC W/Diff, Automatedon Absolute Lymph 2.03 X10 3/uL Normal 0.83-4.51 [facility] Comment on above: Order Comment: 109 Performed By: #### L 100.0100 ####[facility] [address] [place], [address] Absolute Neut 7.0 X10 3/uL Normal 2.0-7.7 [facility] Comment on above: Order Comment: 109 Performed By: #### L 100.0100 ####[facility] [address] [place], [address] Basophils/100 WBC (Bld) 0.6 % Normal 0-1 [facility] Comment on above: Order Comment: 109 Performed By: #### L 100.0100 ####[facility] [address] [place], [address] Eosinophils/100 WBC (Bld) 1.3 % Normal 0-5 [facility] Comment on above: Order Comment: 109 Performed By: #### L 100.0100 ####[facility] [address] [place], [address] Erythrocyte distribution width (RBC) [Ratio] 13.1 % Normal 11.6-14.6 [facility] Comment on above: Order Comment: 109 Performed By: #### L 100.0100 ####[facility] [address] [place], [address] Hematocrit (Bld) [Volume fraction] 41.7 % Normal 40-54 [facility] Comment on above: Order Comment: 109 Performed By: #### L 100.0100 ####[facility] [address] [place], [address] Hemoglobin (Bld) [Mass/Vol] 13.6 g/dL Normal 13.0-16.5 [facility] Comment on above: Order Comment: 109 Performed By: #### L 100.0100 ####[facility] [address] [place], [address] IG% 0.500 Normal 0.0-0.9 [facility] Comment on above: Order Comment: 109 Result Comment: IG% - Immature Granulocytes (promyelocytes, myelocytes andmetamyelocytes) > 1% indicates that a LEFT SHIFT is Present. Performed By: #### L 100.0100 ####[facility] [address] [place], [address] Lymphocytes/100 WBC (Bld) 20.3 % Normal 19-41 [facility] Comment on above: Order Comment: 109 Performed By: #### L 100.0100 ####[facility] [address] [place], [address] MCH (RBC) [Entitic mass] 29.6 pg Normal 27.0-32.0 [facility] Comment on above: Order Comment: 109 Performed By: #### L 100.0100 ####[facility] [address] [place], [address] MCHC (RBC) [Mass/Vol] 32.6 g/dL Normal 32-36 [facility] Comment on above: Order Comment: 109 Performed By: #### L 100.0100 ####[facility] [address] [place], [address] MCV (RBC) [Entitic vol] 90.8 fL Normal 80-94 [facility] Comment on above: Order Comment: 109 Performed By: #### L 100.0100 ####[facility] [address] [place], [address] Monocytes/100 WBC (Bld) 6.8 % Normal 0-10 [facility] Comment on above: Order Comment: 109 Performed By: #### L 100.0100 ####[facility] [address] [place], [address] Neutrophils/100 WBC (Bld) 70.5 % High 47-70 [facility] Comment on above: Order Comment: 109 Performed By: #### L 100.0100 ####[facility] [address] [place], [address] Nucleated RBC (Bld) [#/Vol] 0 10*3/uL Normal 0-5 [facility] Comment on above: Order Comment: 109 Performed By: #### L 100.0100 ####[facility] [address] [place], [address] Platelet mean volume (Bld) [Entitic vol] 11.0 fL Normal 6.2-12.0 [facility] Comment on above: Order Comment: 109 Performed By: #### L 100.0100 ####[facility] [address] [place], [address] Platelets (Bld) [#/Vol] 208 10*3/uL Normal 150-450 [facility] Comment on above: Order Comment: 109 Performed By: #### L 100.0100 ####[facility] [address] [place], [address] RBC (Bld) [#/Vol] 4.59 10*6/uL Low 4.6-6.2 [facility] Comment on above: Order Comment: 109 Performed By: #### L 100.0100 ####[facility] [address] [place], [address] RDW SD 42.8 fl Normal 35.1-43.9 [facility] Comment on above: Order Comment: 109 Performed By: #### L 100.0100 ####[facility] [address] [place], [address] WBC (Bld) [#/Vol] 10.0 10*3/uL Normal 4.4-11.0 [facility] Comment on above: Order Comment: 109 Performed By: #### L 100.0100 ####[facility] [address] [place], [address] Eosinophil percentageOrdered By: Renard Burgos on 07-01-2024 Eosinophils/100 WBC (Bld) 1.3 % 0-5 [facility] Erythrocyte distribution wid th ratioOrdered By: Renard Burgos on 07-01-2024 Erythrocyte distribution width (RBC) [Ratio] 13.1 % 11.6-14.6 [facility] Erythrocyte distribution wid th standard deviationOrdered By: Renard Burgos on 07-01-2024 Erythrocyte distribution width (RBC) [Entitic vol] 42.8 fL 35.1-43.9 [facility] Erythrocyte distribution width (RBC) [Ratio] 42.8 fl 35.1-43.9 [facility] Hematocrit Auto (Bld) [Volum e fraction]Ordered By: Renard Burgos on 07-01-2024 Hematocrit (Bld) [Volume fraction] 41.7 % 40-54 [facility] Hemoglobin measurementOrdere d By: Renard Burgos on 07-01-2024 Hemoglobin (Bld) [Mass/Vol] 13.6 g/dL 13.0-16.5 [facility] Immature granulocytes/100 WB C Auto (Bld)Ordered By: Renard Burgos on 07-01-2024 Immature granulocytes/100 WBC (Bld) 0.500 % 0.0-0.9 [facility] Comment on above: IG% - Immature Granu locytes (promyelocytes, myelocytes and metamyelocytes) > 1% indicates that a LEFT SHIFT is Present. Lymphocytes Auto (Unsp spec) [#/Vol]Ordered By: Renard Burgos on 07-01-2024 Lymphocytes (Bld) [#/Vol] 2.03 10*3/uL 0.83-4.51 [facility] Lymphocytes/100 WBC Auto (Un sp spec)Ordered By: Renard Burgos on 07-01-2024 Lymphocytes/100 WBC (Bld) 20.3 % 19-41 [facility] MCV (mean corpuscular volume ) determinationOrdered By: Renard Burgos on 07-01-2024 MCV (RBC) [Entitic vol] 90.8 fL 80-94 [facility] Mean corpuscular hemoglobin (MCH) determinationOrdered By: Renard Burgos on 07-01-2024 MCH (RBC) [Entitic mass] 29.6 pg 27.0-32.0 [facility] Mean corpuscular hemoglobin concentration (MCHC) determinationOrdered By: Renard Burgos on 07-01-2024 MCHC (RBC) [Mass/Vol] 32.6 g/dL 32-36 [facility] Mean platelet volume determi nationOrdered By: Renard Burgos on 07-01-2024 Platelet mean volume (Bld) [Entitic vol] 11.0 fL 6.2-12.0 [facility] Monocyte percentageOrdered B y: Renard Burgos on 07-01-2024 Monocytes/100 WBC (Bld) 6.8 % 0-10 [facility] Neutrophil percentageOrdered By: Renard Burgos on 07-01-2024 Neutrophils/100 WBC (Bld) 70.5 % High 47-70 [facility] Nucleated red blood cell per centageOrdered By: Renard Burgos on 07-01-2024 Nucleated RBC/100 WBC (Bld) [Ratio] 0 % 0-5 [facility] Platelet countOrdered By: Garrick Bhatt on 07-01-2024 Platelets (Bld) [#/Vol] 208 10*3/uL 150-450 [facility] RBC Auto (Bld) [#/Vol]Ordere d By: Renard Burgos on 07-01-2024 RBC (Bld) [#/Vol] 4.59 10*6/uL Low 4.6-6.2 [facility] White blood cell (WBC) count Ordered By: Renard Burgos on 07-01-2024 WBC (Bld) [#/Vol] 10.0 10*3/uL 4.4-11.0 [facility] Urine Cultureon 06-30-2024 URC Normal [facility] Comment on above: Performed By: #### M 100.2200, L400.0001 ####[facility] [address] [place], [place], [address] Bilirubin Test strip Ql (U)O rdered By: Renard Burgos on 06-27-2024 Bilirubin Ql (U) Negative Negative [facility] Epithelial cells.squamous LM Ql (Urine sed)Ordered By: Renard Burgos on 06-27-2024 Epithelial cells.squamous LM.HPF (Urine sed) [#/Area] 0 /[HPF] 0-5 [facility] Glucose Ql (U)Ordered By: Garrick Bhatt on 06-27-2024 Urine Glucose (UA) Normal mg/dl Normal [facility] Ketones Test strip Ql (U)Ord ered By: Renard Burgos on 06-27-2024 Ketones Ql (U) Negative Negative [facility] Microscopic analysis of urin e for red blood cells (RBC)Ordered By: Renard Burgos on 06-27-2024 Microscopic analysis of urine for red blood cells (RBC) 0 SEEN /hpf 0-5 [facility] Urine RBC 0 SEEN /hpf 0-5 [facility] Mucus LM Ql (Urine sed)Order ed By: Renard Burgos on 06-27-2024 Mucus Ql (Urine sed) 0 SEEN /hpf [facility] Nitrite Test strip Ql (U)Ord ered By: Renard Burgos on 06-27-2024 Nitrite Ql (U) Negative Negative [facility] Protein Test strip Ql (U)Ord ered By: Renard Burgos on 06-27-2024 Protein Ql (U) 15 mg/dl High Negative [facility] Squamous epithelial cells de tection in urine sediment by light microscopyOrdered By: Renard Burgos on 06-27-2024 Epithelial cells.squamous LM Ql (Urine sed) 0 SEEN /hpf 0-5 [facility] Urinalysis, Completeon 06-27 RBC 0 SEEN Normal 0-5 [facility] Comment on above: Order Comment: ARCHANA TER SPECIMEN Performed By: #### M 100.2200, L400.0001 ####[facility] [address] [place], [address] Urine blood detectionOrdered By: Renard Burgos on 06-27-2024 Urine Occult Blood Negative Negative [facility] Urine clarityOrdered By: Lyubov Burgos on 06-27-2024 Clarity (U) Clear Clear [facility] Urine color determinationOrd ered By: Renard Burgos on 06-27-2024 Color (U) Yellow Yellow [facility] Urine cultureOrdered By: Lyubov Burgos on 06-27-2024 Bacteria identified Cx Nom (U) Staphylococcus warneri Abnormal [facility] Bacteria identified Cx Nom (U) Aerococcus viridans. Abnormal [facility] Bacteria identified Cx Nom (U) Presumptive C albicans Abnormal [facility] Bacteria identified Cx Nom (U) Staphylococcus warneri Abnormal [facility] Bacteria identified Cx Nom (U) Aerococcus viridans. Abnormal [facility] Bacteria identified Cx Nom (U) Presumptive C albicans Abnormal [facility] Urine glucose detectionOrder ed By: Renard Burgos on 06-27-2024 Glucose Ql (U) Normal mg/dl Normal [facility] Urine leukocyte esterase det ection by dipstickOrdered By: Renard Burgos on 06-27-2024 Leukocyte esterase Test strip Ql (U) Negative Negative [facility] Urine pHOrdered By: Renard ocampo on 06-27-2024 pH (U) 7.0 [pH] 5.0 - 8.0 [facility] Urine sediment bacteria coun t by microscopy (number/high power field)Ordered By: Renard Burgos on 06-27-2024 Bacteria LM.HPF (Urine sed) [#/Area] 0 /[HPF] None Seen [facility] Urine specific gravity measu rementOrdered By: Renard Burgos on 06-27-2024 Specific gravity (U) [Rel density] 1.010 1.002-1.030 [facility] Urine urobilinogen measureme ntOrdered By: Renard Burgos on 06-27-2024 Urobilinogen Ql (U) 4 mg/dl High Normal [facility] Urobilinogen Ql (U)Ordered B y: Renard Burgos on 06-27-2024 Urobilinogen (U) [Mass/Vol] 4 mg/dL High Normal [facility] White blood cell countOrdere d By: Renard Burgos on 06-27-2024 Urine WBC 0 SEEN /hpf 0-5 [facility] White blood cell count 0 SEEN /hpf 0-[address] [facility] [address] CHEST WO IV CONTRASTon CT CHEST [...] 8:07 AM EST Cough x 2months Normal [facility] CT Chest WO contraston 06-26 Nonspecific groundglass densities are noted in the bilateral lower lobes. Correlate with concern for atypical infection Report Dictated on Electronically Signed By: Maria Eugenia Ruiz MD Electronically Signed Date/Time: 06/26/2024 8:07 AM EST [facility] Patient Name: KATHYA [...] Electronically Signed Date/Time: 06/26/2024 8:[address] [facility] [address] Chest WO contrastOrdered By: Maria Eugenia Ruiz on 06-26-2024 [employer] Work Phone: Absolute lymphocyte countOrd ered By: Renard Burgos on 06-24-2024 Lymphocytes Auto (Unsp spec) [#/Vol] 1.65 10*3/uL 0.83-4.51 [facility] Absolute neutrophil countOrd ered By: Renard Burgos on 06-24-2024 Neutrophils (Bld) [#/Vol] 10.2 10*3/uL High 2.0-7.7 [facility] Automated lymphocyte count a s percentage of total leukocytesOrdered By: Renard Burgos on 06-24-2024 Lymphocytes/100 WBC Auto (Unsp spec) 12.8 % Low 19-41 [facility] Basic Metabolic Profile (BMP )on 06-24-2024 BUN/CRE 24.9 RATIO High 10-20 [facility] Comment on above: Order Comment: 109.1 Performed By: #### L 100.0100, L500.2500 ####[facility] [address] [place], [address] CA,Total 8.3 mg/dL Low 8.5-10.1 [facility] Comment on above: Order Comment: 109.1 Performed By: #### L 100.0100, L500.2500 ####[facility] [address] [place], [address] Chloride [Moles/Vol] 107 mmol/L Normal 98-107 [facility] Comment on above: Order Comment: 109.1 Performed By: #### L 100.0100, L500.2500 ####[facility] [address] [place], [address] CO2 [Moles/Vol] 24.0 mmol/L Normal 21.0-32.0 [facility] Comment on above: Order Comment: 109.1 Performed By: #### L 100.0100, L500.2500 ####[facility] [address] [place], [address] Creatinine [Mass/Vol] 0.60 mg/dL Low 0.70-1.30 [facility] Comment on above: Order Comment: 109.1 Result Comment: The validity of the calculated GFR GFRAA in patients over70 years has not been determined. Clinical correlation isessential. Performed By: #### L 100.0100, L500.2500 ####[facility] [address] [place], [address] EST GFR - AA 172 mL/min Normal >60 [facility] Comment on above: Order Comment: 109.1 Result Comment: Afri can Algerian GFR Calc Performed By: #### L 100.0100, L500.2500 ####[facility] [address] [place], [address] GAP 8 Normal 5-15 [facility] Comment on above: Order Comment: 109.1 Performed By: #### L 100.0100, L500.2500 ####[facility] [address] [place], [address] GFR/1.73 sq M.predicted among non-blacks MDRD (S/P/Bld) [Vol rate/Area] 142 mL/min/{1.73_m2} Normal >60 [facility] Comment on above: Order Comment: 109.1 Result Comment: Non- GFR Calc Performed By: #### L 100.0100, L500.2500 ####[facility] [address] [place], [address] Glucose [Mass/Vol] 101 mg/dL Normal 74-106 [facility] Comment on above: Order Comment: 109.1 Result Comment: Fast ing Glucose result from 100 to 125 mg/dLsuggests IMPAIRED HOMEOSTASIS per A.D.A. criteria. Performed By: #### L 100.0100, L500.2500 ####[facility] [address] [place], [address] Potassium [Moles/Vol] 4.1 mmol/L Normal 3.5-5.1 [facility] Comment on above: Order Comment: 109.1 Performed By: #### L 100.0100, L500.2500 ####[facility] [address] [place], [address] Sodium [Moles/Vol] 139 mmol/L Normal 136-145 [facility] Comment on above: Order Comment: 109.1 Performed By: #### L 100.0100, L500.2500 ####[facility] [address] [place], [address] Urea nitrogen [Mass/Vol] 15 mg/dL Normal 7-18 [facility] Comment on above: Order Comment: 109.1 Performed By: #### L 100.0100, L500.2500 ####[facility] [address] [place], [address] Basophil percentageOrdered B y: Renard Burgos on 06-24-2024 Basophils/100 WBC (Bld) 0.5 % 0-1 [facility] Blood urea nitrogen (BUN)/cr eatinine ratioOrdered By: Renard Burgos on 06-24-2024 Urea nitrogen/Creatinine [Mass ratio] 24.9 mg/mg High 10-20 [facility] CBC W/Diff, Automatedon -2 Absolute Lymph 1.65 X10 3/uL Normal 0.83-4.51 [facility] Comment on above: Order Comment: 109.1 Performed By: #### L 100.0100, L500.2500 ####[facility] [address] [place], [address] Absolute Neut 10.2 X10 3/uL High 2.0-7.7 [facility] Comment on above: Order Comment: 109.1 Performed By: #### L 100.0100, L500.2500 ####[facility] [address], [address] Basophils/100 WBC (Bld) 0.5 % Normal 0-1 [facility] Comment on above: Order Comment: 109.1 Performed By: #### L 100.0100, L500.2500 ####[facility] [address] [place], [address] Eosinophils/100 WBC (Bld) 0.8 % Normal 0-5 [facility] Comment on above: Order Comment: 109.1 Performed By: #### L 100.0100, L500.2500 ####[facility] [address] [place], [address] Erythrocyte distribution width (RBC) [Ratio] 13.2 % Normal 11.6-14.6 [facility] Comment on above: Order Comment: 109.1 Performed By: #### L 100.0100, L500.2500 ####[facility] [address] [place], [address] Hematocrit (Bld) [Volume fraction] 41.8 % Normal 40-54 [facility] Comment on above: Order Comment: 109.1 Performed By: #### L 100.0100, L500.2500 ####[facility] [address] [place], [address] Hemoglobin (Bld) [Mass/Vol] 13.6 g/dL Normal 13.0-16.5 [facility] Comment on above: Order Comment: 109.1 Performed By: #### L 100.0100, L500.2500 ####[facility] [address] [place], [address] IG% 0.500 Normal 0.0-0.9 [facility] Comment on above: Order Comment: 109.1 Result Comment: IG% - Immature Granulocytes (promyelocytes, myelocytes andmetamyelocytes) > 1% indicates that a LEFT SHIFT is Present. Performed By: #### L 100.0100, L500.2500 ####[facility] [address] [place], [address] Lymphocytes/100 WBC (Bld) 12.8 % Low 19-41 [facility] Comment on above: Order Comment: 109.1 Performed By: #### L 100.0100, L500.2500 ####[facility] [address] [place], [address] MCH (RBC) [Entitic mass] 30.2 pg Normal 27.0-32.0 [facility] Comment on above: Order Comment: 109.1 Performed By: #### L 100.0100, L500.2500 ####[facility] [address] [place], [address] MCHC (RBC) [Mass/Vol] 32.5 g/dL Normal 32-36 [facility] Comment on above: Order Comment: 109.1 Performed By: #### L 100.0100, L500.2500 ####[facility] [address] [place], [address] MCV (RBC) [Entitic vol] 92.7 fL Normal 80-94 [facility] Comment on above: Order Comment: 109.1 Performed By: #### L 100.0100, L500.2500 ####[facility] [address] [place], [address] Monocytes/100 WBC (Bld) 6.4 % Normal 0-10 [facility] Comment on above: Order Comment: 109.1 Performed By: #### L 100.0100, L500.2500 ####[facility] [address] [place], [address] Neutrophils/100 WBC (Bld) 79.0 % High 47-70 [facility] Comment on above: Order Comment: 109.1 Performed By: #### L 100.0100, L500.2500 ####[facility] [address] [place], [address] Nucleated RBC (Bld) [#/Vol] 0 10*3/uL Normal 0-5 [facility] Comment on above: Order Comment: 109.1 Performed By: #### L 100.0100, L500.2500 ####[facility] [address] [place], [address] Platelet mean volume (Bld) [Entitic vol] 11.3 fL Normal 6.2-12.0 [facility] Comment on above: Order Comment: 109.1 Performed By: #### L 100.0100, L500.2500 ####[facility] [address] [place], [address] Platelets (Bld) [#/Vol] 171 10*3/uL Normal 150-450 [facility] Comment on above: Order Comment: 109.1 Performed By: #### L 100.0100, L500.2500 ####[facility] [address] [place], [address] RBC (Bld) [#/Vol] 4.51 10*6/uL Low 4.6-6.2 [facility] Comment on above: Order Comment: 109.1 Performed By: #### L 100.0100, L500.2500 ####[facility] [address] [place], [address] RDW SD 45.1 fl High 35.1-43.9 [facility] Comment on above: Order Comment: 109.1 Performed By: #### L 100.0100, L500.2500 ####[facility] [address] [place], [address] WBC (Bld) [#/Vol] 12.9 10*3/uL High 4.4-11.0 [facility] Comment on above: Order Comment: 109.1 Performed By: #### L 100.0100, L500.2500 ####[facility] [address] [place], [address] CT Chest WO contraston 06-24 Radiology Study observation (narrative) Estefania smith Carbon dioxide measurementOr dered By: Renard Burgos on 06-24-2024 CO2 [Moles/Vol] 24.0 mmol/L 21.0-32.0 [facility] Chloride measurementOrdered By: Renard Burgos on 06-24-2024 Chloride [Moles/Vol] 107 mmol/L 98-107 [facility] Eosinophil percentageOrdered By: Renard Burgos on 06-24-2024 Eosinophils/100 WBC (Bld) 0.8 % 0-5 [facility] Erythrocyte distribution wid th ratioOrdered By: Renard Burgos on 06-24-2024 Erythrocyte distribution width (RBC) [Ratio] 13.2 % 11.6-14.6 [facility] Erythrocyte distribution wid th standard deviationOrdered By: Renard Burgos on 06-24-2024 Erythrocyte distribution width (RBC) [Entitic vol] 45.1 fL High 35.1-43.9 [facility] Erythrocyte distribution width (RBC) [Ratio] 45.1 fl High 35.1-43.9 [facility] Estimated glomerular filtrat ion rate (GFR) AmericanOrdered By: Renard Burgos on 06-24-2024 Estimated GFR (MDRD) Amer 172 mL/min >60 [facility] Comment on above: GFR Calc Glomerular filtration rate ( GFR) estimationOrdered By: Renard Burgos on 06-24-2024 Estimated GFR (MDRD) Non-Af Amer 142 mL/min >60 [facility] Comment on above: Non- GFR Calc GFR/1.73 sq M.predicted among non-blacks MDRD (S/P/Bld) [Vol rate/Area] 142 mL/min/{1.73_m2} >60 [facility] Comment on above: Non- GFR Calc Glucose measurementOrdered B y: Renard Burgos on 06-24-2024 Glucose [Mass/Vol] 101 mg/dL 74-106 [facility] Comment on above: Fasting Glucose resu lt from 100 to 125 mg/dL suggests IMPAIRED HOMEOSTASIS per A.D.A. criteria. Hematocrit Auto (Bld) [Volum e fraction]Ordered By: Renard Burgos on 06-24-2024 Hematocrit (Bld) [Volume fraction] 41.8 % 40-54 [facility] Hemoglobin measurementOrdere d By: Renard Burgos on 06-24-2024 Hemoglobin (Bld) [Mass/Vol] 13.6 g/dL 13.0-16.5 [facility] Immature granulocytes/100 WB C Auto (Bld)Ordered By: Renard Burgos on 06-24-2024 Immature granulocytes/100 WBC (Bld) 0.500 % 0.0-0.9 [facility] Comment on above: IG% - Immature Granu locytes (promyelocytes, myelocytes and metamyelocytes) > 1% indicates that a LEFT SHIFT is Present. Lymphocytes Auto (Unsp spec) [#/Vol]Ordered By: Renard Burgos on 06-24-2024 Lymphocytes (Bld) [#/Vol] 1.65 10*3/uL 0.83-4.51 [facility] Lymphocytes/100 WBC Auto (Un sp spec)Ordered By: Renard Burgos on 06-24-2024 Lymphocytes/100 WBC (Bld) 12.8 % Low 19-41 [facility] MCV (mean corpuscular volume ) determinationOrdered By: Renard Burgos on 06-24-2024 MCV (RBC) [Entitic vol] 92.7 fL 80-94 [facility] Mean corpuscular hemoglobin (MCH) determinationOrdered By: Renard Burgos on 06-24-2024 MCH (RBC) [Entitic mass] 30.2 pg 27.0-32.0 [facility] Mean corpuscular hemoglobin concentration (MCHC) determinationOrdered By: Renard Burgos on 06-24-2024 MCHC (RBC) [Mass/Vol] 32.5 g/dL 32-36 [facility] Mean platelet volume determi nationOrdered By: Renard Burgos on 06-24-2024 Platelet mean volume (Bld) [Entitic vol] 11.3 fL 6.2-12.0 [facility] Monocyte percentageOrdered B y: Renard Burgos on 06-24-2024 Monocytes/100 WBC (Bld) 6.4 % 0-10 [facility] Neutrophil percentageOrdered By: Renard Burgos on 06-24-2024 Neutrophils/100 WBC (Bld) 79.0 % High 47-70 [facility] Nucleated red blood cell per centageOrdered By: Renard Burgos on 06-24-2024 Nucleated RBC/100 WBC (Bld) [Ratio] 0 % 0-5 [facility] Platelet countOrdered By: Garrick Bhatt on 06-24-2024 Platelets (Bld) [#/Vol] 171 10*3/uL 150-450 [facility] Potassium measurementOrdered By: Renard Burgos on 06-24-2024 Potassium [Moles/Vol] 4.1 mmol/L 3.5-5.1 [facility] RBC Auto (Bld) [#/Vol]Ordere d By: Renard Burgos on 06-24-2024 RBC (Bld) [#/Vol] 4.51 10*6/uL Low 4.6-6.2 [facility] Serum anion gap measurementO rdered By: Renard Burgos on 06-24-2024 Anion gap [Moles/Vol] 8 mmol/L 5-15 [facility] Serum or plasma calcium gordy urement (mass/volume)Ordered By: Renard Burgos on 06-24-2024 Calcium [Mass/Vol] 8.3 mg/dL Low 8.5-10.1 [facility] Serum or plasma creatinine m easurement [...] 06-24-2024 Urea nitrogen [Mass/Vol] 15 mg/dL 7- [facility] Sodium levelOrdered By: Lamine Burgos on 06-24-2024 Sodium [Moles/Vol] 139 mmol/L 136-145 [facility] White blood cell (WBC) count Ordered By: Renard Burgos on 06-24-2024 WBC (Bld) [#/Vol] 12.9 10*3/uL High 4.4-11.0 [facility] Absolute lymphocyte countOrd ered By: Renard Burgos on 06-17-2024 Lymphocytes Auto (Unsp spec) [#/Vol] 2.00 10*3/uL 0.83-4.51 [facility] Absolute neutrophil countOrd ered By: Renard Burgos on 06-17-2024 Neutrophils (Bld) [#/Vol] 5.1 10*3/uL 2.0-7.7 [facility] Automated lymphocyte count a s percentage of total leukocytesOrdered By: Renard Burgos on 06-17-2024 Lymphocytes/100 WBC Auto (Unsp spec) 24.5 % 19-41 [facility] Basophil percentageOrdered B y: Renard Burgos on 06-17-2024 Basophils/100 WBC (Bld) 1.1 % High 0-1 [facility] CBC W/Diff, Automatedon 06-01 Absolute Lymph 2.00 X10 3/uL Normal 0.83-4.51 [facility] Comment on above: Order Comment: 109-1 Performed By: #### L 100.0100 ####[facility] [address] [place], [address] Absolute Neut 5.1 X10 3/uL Normal 2.0-7.7 [facility] Comment on above: Order Comment: 109-1 Performed By: #### L 100.0100 ####[facility] [address] [place], [address] Basophils/100 WBC (Bld) 1.1 % High 0-1 [facility] Comment on above: Order Comment: 109-1 Performed By: #### L 100.0100 ####[facility] [address] [place], [address] Eosinophils/100 WBC (Bld) 3.4 % Normal 0-5 [facility] Comment on above: Order Comment: 109-1 Performed By: #### L 100.0100 ####[facility] [address] [place], [address] Erythrocyte distribution width (RBC) [Ratio] 13.3 % Normal 11.6-14.6 [facility] Comment on above: Order Comment: 109-1 Performed By: #### L 100.0100 ####[facility] [address] [place], [address] Hematocrit (Bld) [Volume fraction] 39.3 % Low 40-54 [facility] Comment on above: Order Comment: 109-1 Performed By: #### L 100.0100 ####[facility] [address] [place], [address] Hemoglobin (Bld) [Mass/Vol] 12.8 g/dL Low 13.0-16.5 [facility] Comment on above: Order Comment: 109-1 Performed By: #### L 100.0100 ####[facility] [address] [place], [address] IG% 0.200 Normal 0.0-0.9 [facility] Comment on above: Order Comment: 109-1 Result Comment: IG% - Immature Granulocytes (promyelocytes, myelocytes andmetamyelocytes) > 1% indicates that a LEFT SHIFT is Present. Performed By: #### L 100.0100 ####[facility] [address] [place], [address] Lymphocytes/100 WBC (Bld) 24.5 % Normal 19-41 [facility] Comment on above: Order Comment: 109-1 Performed By: #### L 100.0100 ####[facility] [address] [place], [address] MCH (RBC) [Entitic mass] 29.6 pg Normal 27.0-32.0 [facility] Comment on above: Order Comment: 109-1 Performed By: #### L 100.0100 ####[facility] [address] [place], [address] MCHC (RBC) [Mass/Vol] 32.6 g/dL Normal 32-36 [facility] Comment on above: Order Comment: 109-1 Performed By: #### L 100.0100 ####[facility] [address] [place], [address] MCV (RBC) [Entitic vol] 90.8 fL Normal 80-94 [facility] Comment on above: Order Comment: 109-1 Performed By: #### L 100.0100 ####[facility] [address] [place], [address] Monocytes/100 WBC (Bld) 8.8 % Normal 0-10 [facility] Comment on above: Order Comment: 109-1 Performed By: #### L 100.0100 ####[facility] [address] [place], [address] Neutrophils/100 WBC (Bld) 62.0 % Normal 47-70 [facility] Comment on above: Order Comment: 109-1 Performed By: #### L 100.0100 ####[facility] [address] [place], [address] Nucleated RBC (Bld) [#/Vol] 0 10*3/uL Normal 0-5 [facility] Comment on above: Order Comment: 109-1 Performed By: #### L 100.0100 ####[facility] [address] [place], [address] Platelet mean volume (Bld) [Entitic vol] 10.9 fL Normal 6.2-12.0 [facility] Comment on above: Order Comment: 109-1 Performed By: #### L 100.0100 ####[facility] [address] [place], [address] Platelets (Bld) [#/Vol] 218 10*3/uL Normal 150-450 [facility] Comment on above: Order Comment: 109-1 Performed By: #### L 100.0100 ####[facility] [address] [place], [address] RBC (Bld) [#/Vol] 4.33 10*6/uL Low 4.6-6.2 [facility] Comment on above: Order Comment: 109-1 Performed By: #### L 100.0100 ####[facility] [address] [place], [address] RDW SD 44.0 fl High 35.1-43.9 [facility] Comment on above: Order Comment: 109-1 Performed By: #### L 100.0100 ####[facility] [address] [place], [address] WBC (Bld) [#/Vol] 8.2 10*3/uL Normal 4.4-11.0 [facility] Comment on above: Order Comment: 109-1 Performed By: #### L 100.0100 ####[facility] [address] [place], [address] Eosinophil percentageOrdered By: Renard Burgos on 06-17-2024 Eosinophils/100 WBC (Bld) 3.4 % 0-5 [facility] Erythrocyte distribution wid th ratioOrdered By: Renard Burgos on 06-17-2024 Erythrocyte distribution width (RBC) [Ratio] 13.3 % 11.6-14.6 [facility] Erythrocyte distribution wid th standard deviationOrdered By: Renard Burgos on 06-17-2024 Erythrocyte distribution width (RBC) [Entitic vol] 44.0 fL High 35.1-43.9 [facility] Erythrocyte distribution width (RBC) [Ratio] 44.0 fl High 35.1-43.9 [facility] Hematocrit Auto (Bld) [Volum e fraction]Ordered By: Renard Burgos on 06-17-2024 Hematocrit (Bld) [Volume fraction] 39.3 % Low 40-54 [facility] Hemoglobin measurementOrdere d By: Renard Burgos on 06-17-2024 Hemoglobin (Bld) [Mass/Vol] 12.8 g/dL Low 13.0-16.5 [facility] Immature granulocytes/100 WB C Auto (Bld)Ordered By: Renard Burgos on 06-17-2024 Immature granulocytes/100 WBC (Bld) 0.200 % 0.0-0.9 [facility] Comment on above: IG% - Immature Granu locytes (promyelocytes, myelocytes and metamyelocytes) > 1% indicates that a LEFT SHIFT is Present. Lymphocytes Auto (Unsp spec) [#/Vol]Ordered By: Renard Burgos on 06-17-2024 Lymphocytes (Bld) [#/Vol] 2.00 10*3/uL 0.83-4.51 [facility] Lymphocytes/100 WBC Auto (Un sp spec)Ordered By: Renard Burgos on 06-17-2024 Lymphocytes/100 WBC (Bld) 24.5 % 19-41 [facility] MCV (mean corpuscular volume ) determinationOrdered By: Renard Burgos on 06-17-2024 MCV (RBC) [Entitic vol] 90.8 fL 80-94 [facility] Mean corpuscular hemoglobin (MCH) determinationOrdered By: Renard Burgos on 06-17-2024 MCH (RBC) [Entitic mass] 29.6 pg 27.0-32.0 [facility] Mean corpuscular hemoglobin concentration (MCHC) determinationOrdered By: Renard Burgos on 06-17-2024 MCHC (RBC) [Mass/Vol] 32.6 g/dL 32-36 [facility] Mean platelet volume determi nationOrdered By: Renard Burgos on 06-17-2024 Platelet mean volume (Bld) [Entitic vol] 10.9 fL 6.2-12.0 [facility] Monocyte percentageOrdered B y: Renard Burgos on 06-17-2024 Monocytes/100 WBC (Bld) 8.8 % 0-10 [facility] Neutrophil percentageOrdered By: Renard Burgos on 06-17-2024 Neutrophils/100 WBC (Bld) 62.0 % 47-70 [facility] Nucleated red blood cell per centageOrdered By: Renard Burgos on 06-17-2024 Nucleated RBC/100 WBC (Bld) [Ratio] 0 % 0-5 [facility] Platelet countOrdered By: Garrick Bhatt on 06-17-2024 Platelets (Bld) [#/Vol] 218 10*3/uL 150-450 [facility] RBC Auto (Bld) [#/Vol]Ordere d By: Renard Burgos on 06-17-2024 RBC (Bld) [#/Vol] 4.33 10*6/uL Low 4.6-6.2 [facility] White blood cell (WBC) count Ordered By: Renard Burgos on 06-17-2024 WBC (Bld) [#/Vol] 8.2 10*3/uL 4.4-11.0 [facility] Absolute lymphocyte countOrd ered By: Renard Burgos on 06-10-2024 Lymphocytes Auto (Unsp spec) [#/Vol] 2.38 10*3/uL 0.83-4.51 [facility] Absolute neutrophil countOrd ered By: Renard Burgos on 06-10-2024 Neutrophils (Bld) [#/Vol] 5.3 10*3/uL 2.0-7.7 [facility] Automated lymphocyte count a s percentage of total leukocytesOrdered By: Renard Burgos on 06-10-2024 Lymphocytes/100 WBC Auto (Unsp spec) 27.5 % 19-41 [facility] Basophil percentageOrdered B y: Renard Burgos on 06-10-2024 Basophils/100 WBC (Bld) 0.7 % 0-1 [facility] CBC W/Diff, Automatedon 06-01 Absolute Lymph 2.38 X10 3/uL Normal 0.83-4.51 [facility] Comment on above: Order Comment: 109.1 Performed By: #### L 100.0100 ####[facility] [address] [place], [address] Absolute Neut 5.3 X10 3/uL Normal 2.0-7.7 [facility] Comment on above: Order Comment: 109.1 Performed By: #### L 100.0100 ####[facility] [address] [place], [address] Basophils/100 WBC (Bld) 0.7 % Normal 0-1 [facility] Comment on above: Order Comment: 109.1 Performed By: #### L 100.0100 ####[facility] [address] [place], [address] Eosinophils/100 WBC (Bld) 0.7 % Normal 0-5 [facility] Comment on above: Order Comment: 109.1 Performed By: #### L 100.0100 ####[facility] [address] [place], [address] Erythrocyte distribution width (RBC) [Ratio] 13.1 % Normal 11.6-14.6 [facility] Comment on above: Order Comment: 109.1 Performed By: #### L 100.0100 ####[facility] [address] [place], [address] Hematocrit (Bld) [Volume fraction] 41.1 % Normal 40-54 [facility] Comment on above: Order Comment: 109.1 Performed By: #### L 100.0100 ####[facility] [address] [place], [address] Hemoglobin (Bld) [Mass/Vol] 13.5 g/dL Normal 13.0-16.5 [facility] Comment on above: Order Comment: 109.1 Performed By: #### L 100.0100 ####[facility] [address] [place], [address] IG% 0.500 Normal 0.0-0.9 [facility] Comment on above: Order Comment: 109.1 Result Comment: IG% - Immature Granulocytes (promyelocytes, myelocytes andmetamyelocytes) > 1% indicates that a LEFT SHIFT is Present. Performed By: #### L 100.0100 ####[facility] [address] [place], [address] Lymphocytes/100 WBC (Bld) 27.5 % Normal 19-41 [facility] Comment on above: Order Comment: 109.1 Performed By: #### L 100.0100 ####[facility] [address] [place], [address] MCH (RBC) [Entitic mass] 30.1 pg Normal 27.0-32.0 [facility] Comment on above: Order Comment: 109.1 Performed By: #### L 100.0100 ####[facility] [address] [place], [address] MCHC (RBC) [Mass/Vol] 32.8 g/dL Normal 32-36 [facility] Comment on above: Order Comment: 109.1 Performed By: #### L 100.0100 ####[facility] [address] [place], [address] MCV (RBC) [Entitic vol] 91.7 fL Normal 80-94 [facility] Comment on above: Order Comment: 109.1 Performed By: #### L 100.0100 ####[facility] [address] [place], [address] Monocytes/100 WBC (Bld) 9.6 % Normal 0-10 [facility] Comment on above: Order Comment: 109.1 Performed By: #### L 100.0100 ####[facility] [address] [place], [address] Neutrophils/100 WBC (Bld) 61.0 % Normal 47-70 [facility] Comment on above: Order Comment: 109.1 Performed By: #### L 100.0100 ####[facility] [address] [place], [address] Nucleated RBC (Bld) [#/Vol] 0 10*3/uL Normal 0-5 [facility] Comment on above: Order Comment: 109.1 Performed By: #### L 100.0100 ####[facility] [address] [place], [address] Platelet mean volume (Bld) [Entitic vol] 11.0 fL Normal 6.2-12.0 [facility] Comment on above: Order Comment: 109.1 Performed By: #### L 100.0100 ####[facility] [address] [place], [address] Platelets (Bld) [#/Vol] 261 10*3/uL Normal 150-450 [facility] Comment on above: Order Comment: 109.1 Performed By: #### L 100.0100 ####[facility] [address] [place], [address] RBC (Bld) [#/Vol] 4.48 10*6/uL Low 4.6-6.2 [facility] Comment on above: Order Comment: 109.1 Performed By: #### L 100.0100 ####[facility] [address] [place], [address] RDW SD 43.2 fl Normal 35.1-43.9 [facility] Comment on above: Order Comment: 109.1 Performed By: #### L 100.0100 ####[facility] [address] [place], [address] WBC (Bld) [#/Vol] 8.6 10*3/uL Normal 4.4-11.0 [facility] Comment on above: Order Comment: 109.1 Performed By: #### L 100.0100 ####[facility] [address] [place], [address] Eosinophil percentageOrdered By: Renard Burgos on 06-10-2024 Eosinophils/100 WBC (Bld) 0.7 % 0-5 [facility] Erythrocyte distribution wid th ratioOrdered By: Renard Burgos on 06-10-2024 Erythrocyte distribution width (RBC) [Ratio] 13.1 % 11.6-14.6 [facility] Erythrocyte distribution wid th standard deviationOrdered By: Renard Burgos on 06-10-2024 Erythrocyte distribution width (RBC) [Entitic vol] 43.2 fL 35.1-43.9 [facility] Erythrocyte distribution width (RBC) [Ratio] 43.2 fl 35.1-43.9 [facility] Hematocrit Auto (Bld) [Volum e fraction]Ordered By: Renard Burgos on 06-10-2024 Hematocrit (Bld) [Volume fraction] 41.1 % 40-54 [facility] Hemoglobin measurementOrdere d By: Renard Burgos on 06-10-2024 Hemoglobin (Bld) [Mass/Vol] 13.5 g/dL 13.0-16.5 [facility] Immature granulocytes/100 WB C Auto (Bld)Ordered By: Renard Burgos on 06-10-2024 Immature granulocytes/100 WBC (Bld) 0.500 % 0.0-0.9 [facility] Comment on above: IG% - Immature Granu locytes (promyelocytes, myelocytes and metamyelocytes) > 1% indicates that a LEFT SHIFT is Present. Lymphocytes Auto (Unsp spec) [#/Vol]Ordered By: Renard Burgos on 06-10-2024 Lymphocytes (Bld) [#/Vol] 2.38 10*3/uL 0.83-4.51 [facility] Lymphocytes/100 WBC Auto (Un sp spec)Ordered By: Renard Burgos on 06-10-2024 Lymphocytes/100 WBC (Bld) 27.5 % 19-41 [facility] MCV (mean corpuscular volume ) determinationOrdered By: Renard Burgos on 06-10-2024 MCV (RBC) [Entitic vol] 91.7 fL 80-94 [facility] Mean corpuscular hemoglobin (MCH) determinationOrdered By: Renard Burgos on 06-10-2024 MCH (RBC) [Entitic mass] 30.1 pg 27.0-32.0 [facility] Mean corpuscular hemoglobin concentration (MCHC) determinationOrdered By: Renard Burgos on 06-10-2024 MCHC (RBC) [Mass/Vol] 32.8 g/dL 32-36 [facility] Mean platelet volume determi nationOrdered By: Renard Burgos on 06-10-2024 Platelet mean volume (Bld) [Entitic vol] 11.0 fL 6.2-12.0 [facility] Monocyte percentageOrdered B y: Renard Burgos on 06-10-2024 Monocytes/100 WBC (Bld) 9.6 % 0-10 [facility] Neutrophil percentageOrdered By: Renard Burgos on 06-10-2024 Neutrophils/100 WBC (Bld) 61.0 % 47-70 [facility] Nucleated red blood cell per centageOrdered By: Renard Burgos on 06-10-2024 Nucleated RBC/100 WBC (Bld) [Ratio] 0 % 0-5 [facility] Platelet countOrdered By: Garrick Bhatt on 06-10-2024 Platelets (Bld) [#/Vol] 261 10*3/uL 150-450 [facility] RBC Auto (Bld) [#/Vol]Ordere d By: Renard Burgos on 06-10-2024 RBC (Bld) [#/Vol] 4.48 10*6/uL Low 4.6-6.2 [facility] Urine Cultureon 06-10-2024 URC Normal [facility] Comment on above: Performed By: #### M 100.2200, L400.0001 ####[facility] [address] [place], [place], [address] White blood cell (WBC) count Ordered By: Renard Burgos on 06-10-2024 WBC (Bld) [#/Vol] 8.6 10*3/uL 4.4-11.0 [facility] Bilirubin Test strip Ql (U)O rdered By: Renard Burgos on 06-07-2024 Bilirubin Ql (U) Negative Negative [facility] CBC-Complete Blood Cnt No Di ffon 06-07-2024 Erythrocyte distribution width (RBC) [Ratio] 13.0 % Normal 11.6-14.6 [facility] Comment on above: Order Comment: 109-1 Performed By: #### L 100.0500 ####[facility] [address] [place], [address] Hematocrit (Bld) [Volume fraction] 39.3 % Low 40-54 [facility] Comment on above: Order Comment: 109-1 Performed By: #### L 100.0500 ####[facility] [address] [place], [address] Hemoglobin (Bld) [Mass/Vol] 13.0 g/dL Normal 13.0-16.5 [facility] Comment on above: Order Comment: 109-1 Performed By: #### L 100.0500 ####[facility] [address] [place], [address] MCH (RBC) [Entitic mass] 30.2 pg Normal 27.0-32.0 [facility] Comment on above: Order Comment: 109-1 Performed By: #### L 100.0500 ####[facility] [address] [place], [address] MCHC (RBC) [Mass/Vol] 33.1 g/dL Normal 32-36 [facility] Comment on above: Order Comment: 109-1 Performed By: #### L 100.0500 ####[facility] [address] [place], [address] MCV (RBC) [Entitic vol] 91.2 fL Normal 80-94 [facility] Comment on above: Order Comment: 109-1 Performed By: #### L 100.0500 ####[facility] [address] [place], [address] Platelet mean volume (Bld) [Entitic vol] 10.8 fL Normal 6.2-12.0 [facility] Comment on above: Order Comment: 109-1 Performed By: #### L 100.0500 ####[facility] [address] [place], [address] Platelets (Bld) [#/Vol] 251 10*3/uL Normal 150-450 [facility] Comment on above: Order Comment: 109-1 Performed By: #### L 100.0500 ####[facility] [address] [place], [address] RBC (Bld) [#/Vol] 4.31 10*6/uL Low 4.6-6.2 [facility] Comment on above: Order Comment: 109-1 Performed By: #### L 100.0500 ####[facility] [address] [place], [address] RDW SD 43.7 fl Normal 35.1-43.9 [facility] Comment on above: Order Comment: 109-1 Performed By: #### L 100.0500 ####[facility] [address] [place], [address] WBC (Bld) [#/Vol] 9.9 10*3/uL Normal 4.4-11.0 [facility] Comment on above: Order Comment: 109-1 Performed By: #### L 100.0500 ####[facility] [address] [place], [address] Epithelial cells.squamous LM Ql (Urine sed)Ordered By: Renard Burgos on 06-07-2024 Epithelial cells.squamous LM.HPF (Urine sed) [#/Area] 0 /[HPF] 0-5 [facility] Erythrocyte distribution wid th ratioOrdered By: Renard Burgos on 06-07-2024 Erythrocyte distribution width (RBC) [Ratio] 13.0 % 11.6-14.6 [facility] Erythrocyte distribution wid th standard deviationOrdered By: Renard Burgos on 06-07-2024 Erythrocyte distribution width (RBC) [Entitic vol] 43.7 fL 35.1-43.9 [facility] Erythrocyte distribution width (RBC) [Ratio] 43.7 fl 35.1-43.9 [facility] Glucose Ql (U)Ordered By: Garrick Bhatt on 06-07-2024 Urine Glucose (UA) Normal mg/dl Normal [facility] Hematocrit Auto (Bld) [Volum e fraction]Ordered By: Renard Burgos on 06-07-2024 Hematocrit (Bld) [Volume fraction] 39.3 % Low 40-54 [facility] Hemoglobin measurementOrdere d By: Renard Burgos on 06-07-2024 Hemoglobin (Bld) [Mass/Vol] 13.0 g/dL 13.0-16.5 [facility] Ketones Test strip Ql (U)Ord ered By: Renard Burgos on 06-07-2024 Ketones Ql (U) Negative Negative [facility] MCV (mean corpuscular volume ) determinationOrdered By: Renard Burgos on 06-07-2024 MCV (RBC) [Entitic vol] 91.2 fL 80-94 [facility] Mean corpuscular hemoglobin (MCH) determinationOrdered By: Renard Burgos on 06-07-2024 MCH (RBC) [Entitic mass] 30.2 pg 27.0-32.0 [facility] Mean corpuscular hemoglobin concentration (MCHC) determinationOrdered By: Renard Burgos on 06-07-2024 MCHC (RBC) [Mass/Vol] 33.1 g/dL 32-36 [facility] Mean platelet volume determi nationOrdered By: Renard Burgso on 06-07-2024 Platelet mean volume (Bld) [Entitic vol] 10.8 fL 6.2-12.0 [facility] Microscopic analysis of urin e for red blood cells (RBC)Ordered By: Renard Burgos on 06-07-2024 Microscopic analysis of urine for red blood cells (RBC) 0 SEEN /hpf 0-5 [facility] Urine RBC 0 SEEN /hpf 0-5 [facility] Mucus LM Ql (Urine sed)Order ed By: Renard Burgos on 06-07-2024 Mucus Ql (Urine sed) 0 SEEN /hpf [facility] Nitrite Test strip Ql (U)Ord ered By: Renard Burgos on 06-07-2024 Nitrite Ql (U) Negative Negative [facility] Platelet countOrdered By: Garrick Bhatt on 06-07-2024 Platelets (Bld) [#/Vol] 251 10*3/uL 150-450 [facility] Protein Test strip Ql (U)Ord ered By: Renard Burgos on 06-07-2024 Protein Ql (U) 15 mg/dl High Negative [facility] RBC Auto (Bld) [#/Vol]Ordere d By: Renard Burgos on 06-07-2024 RBC (Bld) [#/Vol] 4.31 10*6/uL Low 4.6-6.2 [facility] Squamous epithelial cells de tection in urine sediment by light microscopyOrdered By: Renard Burgos on 06-07-2024 Epithelial cells.squamous LM Ql (Urine sed) 0-5 SEEN /hpf 0-5 [facility] Urinalysis, Completeon 06-07 Mucus Ql (Urine sed) 0 SEEN Normal [facility] Comment on above: Order Comment: CLEAN CATCH Performed By: #### M 100.2200, L400.0001 ####[facility] [address] [place], [address] Urine blood detectionOrdered By: Renard Burgos on 06-07-2024 Urine Occult Blood Negative Negative [facility] Urine clarityOrdered By: Lyubov Burgos on 06-07-2024 Clarity (U) Clear Clear [facility] Urine color determinationOrd ered By: Rneard Burgos on 06-07-2024 Color (U) Yellow Yellow [facility] Urine cultureOrdered By: Lyubov Burgos on 06-07-2024 Bacteria identified Cx Nom (U) Pseudomonas aeruginosa Abnormal [facility] Bacteria identified Cx Nom (U) Pseudomonas aeruginosa Abnormal [facility] Urine glucose detectionOrder ed By: Renard Burgos on 06-07-2024 Glucose Ql (U) Normal mg/dl Normal [facility] Urine leukocyte esterase det ection by dipstickOrdered By: Renard Burgos on 06-07-2024 Leukocyte esterase Test strip Ql (U) Negative Negative [facility] Urine pHOrdered By: Renard ocampo on 06-07-2024 pH (U) 7.0 [pH] 5.0 - 8.0 [facility] Urine sediment bacteria coun t by microscopy (number/high power field)Ordered By: Renard Burgos on 06-07-2024 Bacteria LM.HPF (Urine sed) [#/Area] 2 /[HPF] None Seen [facility] Urine sediment yeast count b y microscopy (number/high powered field)Ordered By: Renard Burgos on 06-07-2024 Yeast LM.HPF (Urine sed) [#/Area] 1 /[HPF] None Seen [facility] Urine specific gravity measu rementOrdered By: Renard Burgos on 06-07-2024 Specific gravity (U) [Rel density] 1.010 1.002-1.030 [facility] Urine urobilinogen measureme ntOrdered By: Renard Burgos on 06-07-2024 Urobilinogen Ql (U) 1 mg/dl High Normal [facility] Urobilinogen Ql (U)Ordered B y: Renard Burgos on 06-07-2024 Urobilinogen (U) [Mass/Vol] 1 mg/dL High Normal [facility] White blood cell (WBC) count Ordered By: Renard Burgos on 06-07-2024 WBC (Bld) [#/Vol] 9.9 10*3/uL 4.4-11.0 [facility] White blood cell countOrdere d By: Renard Burgos on 06-07-2024 Urine WBC 0-5 SEEN /hpf 0-5 [facility] White blood cell count 0-5 SEEN /hpf 0-5 [facility] Yeast LM.HPF (Urine sed) [#/ Area]Ordered By: Renard Burgos on 06-07-2024 Urine Yeast 1+ /hpf None Seen [facility] Absolute lymphocyte countOrd ered By: Renard Burgos on 06-03-2024 Lymphocytes Auto (Unsp spec) [#/Vol] 1.94 10*3/uL 0.83-4.51 [facility] Absolute neutrophil countOrd ered By: Renard Burgos on 06-03-2024 Neutrophils (Bld) [#/Vol] 9.5 10*3/uL High 2.0-7.7 [facility] Automated lymphocyte count a s percentage of total leukocytesOrdered By: Renard Burgos on 06-03-2024 Lymphocytes/100 WBC Auto (Unsp spec) 15.7 % Low 19-41 [facility] Basophil percentageOrdered B y: Renard Burgos on 06-03-2024 Basophils/100 WBC (Bld) 0.5 % 0-1 [facility] CBC W/Diff, Automatedon Absolute Lymph 1.94 X10 3/uL Normal 0.83-4.51 [facility] Comment on above: Order Comment: 109-1 Performed By: #### L 100.0100 ####[facility] [address] [place], [address] Absolute Neut 9.5 X10 3/uL High 2.0-7.7 [facility] Comment on above: Order Comment: 109-1 Performed By: #### L 100.0100 ####[facility] [address] [place], [address] Basophils/100 WBC (Bld) 0.5 % Normal 0-1 [facility] Comment on above: Order Comment: 109-1 Performed By: #### L 100.0100 ####[facility] [address] [place], [address] Eosinophils/100 WBC (Bld) 0.3 % Normal 0-5 [facility] Comment on above: Order Comment: 109-1 Performed By: #### L 100.0100 ####[facility] [address] [place], [address] Erythrocyte distribution width (RBC) [Ratio] 13.0 % Normal 11.6-14.6 [facility] Comment on above: Order Comment: 109-1 Performed By: #### L 100.0100 ####[facility] [address] [place], [address] Hematocrit (Bld) [Volume fraction] 40.1 % Normal 40-54 [facility] Comment on above: Order Comment: 109-1 Performed By: #### L 100.0100 ####[facility] [address] [place], [address] Hemoglobin (Bld) [Mass/Vol] 13.2 g/dL Normal 13.0-16.5 [facility] Comment on above: Order Comment: 109-1 Performed By: #### L 100.0100 ####[facility] [address] [place], [address] IG% 0.400 Normal 0.0-0.9 [facility] Comment on above: Order Comment: 109-1 Result Comment: IG% - Immature Granulocytes (promyelocytes, myelocytes andmetamyelocytes) > 1% indicates that a LEFT SHIFT is Present. Performed By: #### L 100.0100 ####[facility] [address] [place], [address] Lymphocytes/100 WBC (Bld) 15.7 % Low 19-41 [facility] Comment on above: Order Comment: 109-1 Performed By: #### L 100.0100 ####[facility] [address] [place], [address] MCH (RBC) [Entitic mass] 30.1 pg Normal 27.0-32.0 [facility] Comment on above: Order Comment: 109-1 Performed By: #### L 100.0100 ####[facility] [address] [place], [address] MCHC (RBC) [Mass/Vol] 32.9 g/dL Normal 32-36 [facility] Comment on above: Order Comment: 109-1 Performed By: #### L 100.0100 ####[facility] [address] [place], [address] MCV (RBC) [Entitic vol] 91.3 fL Normal 80-94 [facility] Comment on above: Order Comment: 109-1 Performed By: #### L 100.0100 ####[facility] [address] [place], [address] Monocytes/100 WBC (Bld) 6.6 % Normal 0-10 [facility] Comment on above: Order Comment: 109-1 Performed By: #### L 100.0100 ####[facility] [address] [place], [address] Neutrophils/100 WBC (Bld) 76.5 % High 47-70 [facility] Comment on above: Order Comment: 109-1 Performed By: #### L 100.0100 ####[facility] [address] [place], [address] Nucleated RBC (Bld) [#/Vol] 0 10*3/uL Normal 0-5 [facility] Comment on above: Order Comment: 109-1 Performed By: #### L 100.0100 ####[facility] [address] [place], [address] Platelet mean volume (Bld) [Entitic vol] 11.1 fL Normal 6.2-12.0 [facility] Comment on above: Order Comment: 109-1 Performed By: #### L 100.0100 ####[facility] [address] [place], [address] Platelets (Bld) [#/Vol] 249 10*3/uL Normal 150-450 [facility] Comment on above: Order Comment: 109-1 Performed By: #### L 100.0100 ####[facility] [address] [place], [address] RBC (Bld) [#/Vol] 4.39 10*6/uL Low 4.6-6.2 [facility] Comment on above: Order Comment: 109-1 Performed By: #### L 100.0100 ####[facility] [address] [place], [address] RDW SD 42.8 fl Normal 35.1-43.9 [facility] Comment on above: Order Comment: 109-1 Performed By: #### L 100.0100 ####[facility] [address] [place], [address] WBC (Bld) [#/Vol] 12.4 10*3/uL High 4.4-11.0 [facility] Comment on above: Order Comment: 109-1 Performed By: #### L 100.0100 ####[facility] [address] [place], [address] Eosinophil percentageOrdered By: Renard Burgos on 06-03-2024 Eosinophils/100 WBC (Bld) 0.3 % 0-5 [facility] Erythrocyte distribution wid th ratioOrdered By: Renard Burgos on 06-03-2024 Erythrocyte distribution width (RBC) [Ratio] 13.0 % 11.6-14.6 [facility] Erythrocyte distribution wid th standard deviationOrdered By: Renard Burgos on 06-03-2024 Erythrocyte distribution width (RBC) [Entitic vol] 42.8 fL 35.1-43.9 [facility] Erythrocyte distribution width (RBC) [Ratio] 42.8 fl 35.1-43.9 [facility] Hematocrit Auto (Bld) [Volum e fraction]Ordered By: Renard Burgos on 06-03-2024 Hematocrit (Bld) [Volume fraction] 40.1 % 40-54 [facility] Hemoglobin measurementOrdere d By: Renard Burgos on 06-03-2024 Hemoglobin (Bld) [Mass/Vol] 13.2 g/dL 13.0-16.5 [facility] Immature granulocytes/100 WB C Auto (Bld)Ordered By: Renard Burgos on 06-03-2024 Immature granulocytes/100 WBC (Bld) 0.400 % 0.0-0.9 [facility] Comment on above: IG% - Immature Granu locytes (promyelocytes, myelocytes and metamyelocytes) > 1% indicates that a LEFT SHIFT is Present. Lymphocytes Auto (Unsp spec) [#/Vol]Ordered By: Renard Burgos on 06-03-2024 Lymphocytes (Bld) [#/Vol] 1.94 10*3/uL 0.83-4.51 [facility] Lymphocytes/100 WBC Auto (Un sp spec)Ordered By: Renard Burgos on 06-03-2024 Lymphocytes/100 WBC (Bld) 15.7 % Low 19-41 [facility] MCV (mean corpuscular volume ) determinationOrdered By: Renard Burgos on 06-03-2024 MCV (RBC) [Entitic vol] 91.3 fL 80-94 [facility] Mean corpuscular hemoglobin (MCH) determinationOrdered By: Renard Burgos on 06-03-2024 MCH (RBC) [Entitic mass] 30.1 pg 27.0-32.0 [facility] Mean corpuscular hemoglobin concentration (MCHC) determinationOrdered By: Renard Burgos on 06-03-2024 MCHC (RBC) [Mass/Vol] 32.9 g/dL 32-36 [facility] Mean platelet volume determi nationOrdered By: Renard Burgos on 06-03-2024 Platelet mean volume (Bld) [Entitic vol] 11.1 fL 6.2-12.0 [facility] Monocyte percentageOrdered B y: Renard Burgos on 06-03-2024 Monocytes/100 WBC (Bld) 6.6 % 0-10 [facility] Neutrophil percentageOrdered By: Renard Burgos on 06-03-2024 Neutrophils/100 WBC (Bld) 76.5 % High 47-70 [facility] Nucleated red blood cell per centageOrdered By: Renard Burgos on 06-03-2024 Nucleated RBC/100 WBC (Bld) [Ratio] 0 % 0-5 [facility] Platelet countOrdered By: Garrick Bhatt on 06-03-2024 Platelets (Bld) [#/Vol] 249 10*3/uL 150-450 [facility] RBC Auto (Bld) [#/Vol]Ordere d By: Renard Burgos on 06-03-2024 RBC (Bld) [#/Vol] 4.39 10*6/uL Low 4.6-6.2 [facility] White blood cell (WBC) count Ordered By: Renard Loretta on 06-03-2024 WBC (Bld) [#/Vol] 12.4 10*3/uL High 4.4-11.0 [facility] Absolute lymphocyte countOrd ered By: Renard Burgos on 05-27-2024 Lymphocytes Auto (Unsp spec) [#/Vol] 1.81 10*3/uL 0.83-4.51 [facility] Absolute neutrophil countOrd ered By: Renard Burgos on 05-27-2024 Neutrophils (Bld) [#/Vol] 5.0 10*3/uL 2.0-7.7 [facility] Automated lymphocyte count a s percentage of total leukocytesOrdered By: Renard Burgos on 05-27-2024 Lymphocytes/100 WBC Auto (Unsp spec) 24.4 % 19-41 [facility] Basophil percentageOrdered B y: Renard Burgos on 05-27-2024 Basophils/100 WBC (Bld) 0.5 % 0-1 [facility] CBC W/Diff, Automatedon 05-02 Absolute Lymph 1.81 X10 3/uL Normal 0.83-4.51 [facility] Comment on above: Order Comment: 109.1 Performed By: #### L 100.0100 ####[facility] [address] [facility] [address] Absolute Neut 5.0 X10 3/uL Normal 2.0-7.7 [facility] Comment on above: Order Comment: 109.1 Performed By: #### L 100.0100 ####[facility] [address] [place], [address] Basophils/100 WBC (Bld) 0.5 % Normal 0-1 [facility] Comment on above: Order Comment: 109.1 Performed By: #### L 100.0100 ####[facility] [address] [place], [address] Eosinophils/100 WBC (Bld) 0.5 % Normal 0-5 [facility] Comment on above: Order Comment: 109.1 Performed By: #### L 100.0100 ####[facility] [address] [place], [address] Erythrocyte distribution width (RBC) [Ratio] 12.8 % Normal 11.6-14.6 [facility] Comment on above: Order Comment: 109.1 Performed By: #### L 100.0100 ####[facility] [address] [place], [address] Hematocrit (Bld) [Volume fraction] 39.8 % Low 40-54 [facility] Comment on above: Order Comment: 109.1 Performed By: #### L 100.0100 ####[facility] [address] [place], [address] Hemoglobin (Bld) [Mass/Vol] 13.2 g/dL Normal 13.0-16.5 [facility] Comment on above: Order Comment: 109.1 Performed By: #### L 100.0100 ####[facility] [address] [place], [address] IG% 0.400 Normal 0.0-0.9 [facility] Comment on above: Order Comment: 109.1 Result Comment: IG% - Immature Granulocytes (promyelocytes, myelocytes andmetamyelocytes) > 1% indicates that a LEFT SHIFT is Present. Performed By: #### L 100.0100 ####[facility] [address] [place], [address] Lymphocytes/100 WBC (Bld) 24.4 % Normal 19-41 [facility] Comment on above: Order Comment: 109.1 Performed By: #### L 100.0100 ####[facility] [address] [place], [address] MCH (RBC) [Entitic mass] 30.2 pg Normal 27.0-32.0 [facility] Comment on above: Order Comment: 109.1 Performed By: #### L 100.0100 ####[facility] [address] [place], [address] MCHC (RBC) [Mass/Vol] 33.2 g/dL Normal 32-36 [facility] Comment on above: Order Comment: 109.1 Performed By: #### L 100.0100 ####[facility] [address] [place], [address] MCV (RBC) [Entitic vol] 91.1 fL Normal 80-94 [facility] Comment on above: Order Comment: 109.1 Performed By: #### L 100.0100 ####[facility] [address] [place], [address] Monocytes/100 WBC (Bld) 7.0 % Normal 0-10 [facility] Comment on above: Order Comment: 109.1 Performed By: #### L 100.0100 ####[facility] [address] [place], [address] Neutrophils/100 WBC (Bld) 67.2 % Normal 47-70 [facility] Comment on above: Order Comment: 109.1 Performed By: #### L 100.0100 ####[facility] [address] [place], [address] Nucleated RBC (Bld) [#/Vol] 0 10*3/uL Normal 0-5 [facility] Comment on above: Order Comment: 109.1 Performed By: #### L 100.0100 ####[facility] [address] [place], [address] Platelet mean volume (Bld) [Entitic vol] 10.3 fL Normal 6.2-12.0 [facility] Comment on above: Order Comment: 109.1 Performed By: #### L 100.0100 ####[facility] [address] [place], [address] Platelets (Bld) [#/Vol] 239 10*3/uL Normal 150-450 [facility] Comment on above: Order Comment: 109.1 Performed By: #### L 100.0100 ####[facility] [address] [place], [address] RBC (Bld) [#/Vol] 4.37 10*6/uL Low 4.6-6.2 [facility] Comment on above: Order Comment: 109.1 Performed By: #### L 100.0100 ####[facility] [address] [place], [address] RDW SD 42.5 fl Normal 35.1-43.9 [facility] Comment on above: Order Comment: 109.1 Performed By: #### L 100.0100 ####[facility] [address] [place], [address] WBC (Bld) [#/Vol] 7.4 10*3/uL Normal 4.4-11.0 [facility] Comment on above: Order Comment: 109.1 Performed By: #### L 100.0100 ####[facility] [address] [place], [address] Eosinophil percentageOrdered By: Renard Burgos on 05-27-2024 Eosinophils/100 WBC (Bld) 0.5 % 0-5 [facility] Erythrocyte distribution wid th ratioOrdered By: Renard Burgos on 05-27-2024 Erythrocyte distribution width (RBC) [Ratio] 12.8 % 11.6-14.6 [facility] Erythrocyte distribution wid th standard deviationOrdered By: Renard Burgos on 05-27-2024 Erythrocyte distribution width (RBC) [Entitic vol] 42.5 fL 35.1-43.9 [facility] Erythrocyte distribution width (RBC) [Ratio] 42.5 fl 35.1-43.9 [facility] Hematocrit Auto (Bld) [Volum e fraction]Ordered By: Renard Burgos on 05-27-2024 Hematocrit (Bld) [Volume fraction] 39.8 % Low 40-54 [facility] Hemoglobin measurementOrdere d By: Renard Burgos on 05-27-2024 Hemoglobin (Bld) [Mass/Vol] 13.2 g/dL 13.0-16.5 [facility] Immature granulocytes/100 WB C Auto (Bld)Ordered By: Renard Burgos on 05-27-2024 Immature granulocytes/100 WBC (Bld) 0.400 % 0.0-0.9 [facility] Comment on above: IG% - Immature Granu locytes (promyelocytes, myelocytes and metamyelocytes) > 1% indicates that a LEFT SHIFT is Present. Lymphocytes Auto (Unsp spec) [#/Vol]Ordered By: Renard Burgos on 05-27-2024 Lymphocytes (Bld) [#/Vol] 1.81 10*3/uL 0.83-4.51 [facility] Lymphocytes/100 WBC Auto (Un sp spec)Ordered By: Renard Burgos on 05-27-2024 Lymphocytes/100 WBC (Bld) 24.4 % 19-41 [facility] MCV (mean corpuscular volume ) determinationOrdered By: Renard Burgos on 05-27-2024 MCV (RBC) [Entitic vol] 91.1 fL 80-94 [facility] Mean corpuscular hemoglobin (MCH) determinationOrdered By: Renard Burgos on 05-27-2024 MCH (RBC) [Entitic mass] 30.2 pg 27.0-32.0 [facility] Mean corpuscular hemoglobin concentration (MCHC) determinationOrdered By: Renard Burgos on 05-27-2024 MCHC (RBC) [Mass/Vol] 33.2 g/dL 32-36 [facility] Mean platelet volume determi nationOrdered By: Renard Burgos on 05-27-2024 Platelet mean volume (Bld) [Entitic vol] 10.3 fL 6.2-12.0 [facility] Monocyte percentageOrdered B y: Renard Burgos on 05-27-2024 Monocytes/100 WBC (Bld) 7.0 % 0-10 [facility] Neutrophil percentageOrdered By: Renard Burgos on 05-27-2024 Neutrophils/100 WBC (Bld) 67.2 % 47-70 [facility] Nucleated red blood cell per centageOrdered By: Renard Burgos on 05-27-2024 Nucleated RBC/100 WBC (Bld) [Ratio] 0 % 0-5 [facility] Platelet countOrdered By: Garrick Bhatt on 05-27-2024 Platelets (Bld) [#/Vol] 239 10*3/uL 150-450 [facility] RBC Auto (Bld) [#/Vol]Ordere d By: Renard Burgos on 05-27-2024 RBC (Bld) [#/Vol] 4.37 10*6/uL Low 4.6-6.2 [facility] White blood cell (WBC) count Ordered By: Renard Burgos on 05-27-2024 WBC (Bld) [#/Vol] 7.4 10*3/uL 4.4-11.0 [facility] Absolute lymphocyte countOrd ered By: Renard Burgos on 05-20-2024 Lymphocytes Auto (Unsp spec) [#/Vol] 1.73 10*3/uL 0.83-4.51 [facility] Absolute neutrophil countOrd ered By: Renard Burgos on 05-20-2024 Neutrophils (Bld) [#/Vol] 7.0 10*3/uL 2.0-7.7 [facility] Automated blood erythrocyte countOrdered By: Renard Burgos on 05-20-2024 RBC (Bld) [#/Vol] 4.74 10*6/uL Normal 4.6-6.2 [facility] Comment on above: Order Comment: 109-1 Performed By: #### L 100.0100 ####[facility] [address] [place], [address] Automated blood hematocrit ( percentage)Ordered By: Renard Burgos on 05-20-2024 Hematocrit (Bld) [Volume fraction] 43.6 % Normal 40-54 [facility] Comment on above: Order Comment: 109-1 Performed By: #### L 100.0100 ####[facility] [address] [place], [address] Automated lymphocyte count a s percentage of total leukocytesOrdered By: Renard Burgos on 05-20-2024 Lymphocytes/100 WBC (Bld) 17.7 % Low -41 [facility] Comment on above: Order Comment: 109-1 Performed By: #### L 100.0100 ####[facility] [address] [place], [address] Lymphocytes/100 WBC Auto (Unsp spec) 17.7 % Low - [facility] Basophil percentageOrdered B y: Renard Burgos on 05-20-2024 Basophils/100 WBC (Bld) 0.5 % Normal 0-1 [facility] Comment on above: Order Comment: 109-1 Performed By: #### L 100.0100 ####[facility] [address] [place], [address] CBC W/Diff, Automatedon 05-02 Absolute Lymph 1.73 X10 3/uL Normal 0.83-4.51 [facility] Comment on above: Order Comment: 109-1 Performed By: #### L 100.0100 ####[facility] [address] [place], [address] Absolute Neut 7.0 X10 3/uL Normal 2.0-7.7 [facility] Comment on above: Order Comment: 109-1 Performed By: #### L 100.0100 ####[facility] [address] [place], [address] IG% 0.500 Normal 0.0-0.9 [facility] Comment on above: Order Comment: 109-1 Result Comment: IG% - Immature Granulocytes (promyelocytes, myelocytes andmetamyelocytes) > 1% indicates that a LEFT SHIFT is Present. Performed By: #### L 100.0100 ####[facility] [address] [place], [address] Nucleated RBC (Bld) [#/Vol] 0 10*3/uL Normal 0-5 [facility] Comment on above: Order Comment: 109-1 Performed By: #### L 100.0100 ####[facility] [address] [place], [address] RDW SD 42.5 fl Normal 35.1-43.9 [facility] Comment on above: Order Comment: 109-1 Performed By: #### L 100.0100 ####[facility] [address] [place], [address] Eosinophil percentageOrdered By: Renard Burgos on 05-20-2024 Eosinophils/100 WBC (Bld) 0.5 % Normal 0-5 [facility] Comment on above: Order Comment: 109-1 Performed By: #### L 100.0100 ####[facility] [address] [place], [address] Erythrocyte distribution wid th ratioOrdered By: Renard Burgos on 05-20-2024 Erythrocyte distribution width (RBC) [Ratio] 12.6 % Normal 11.6-14.6 [facility] Comment on above: Order Comment: 109-1 Performed By: #### L 100.0100 ####[facility] [address] [place], [address] Erythrocyte distribution wid th standard deviationOrdered By: Renard Burgos on 05-20-2024 Erythrocyte distribution width (RBC) [Entitic vol] 42.5 fL 35.1-43.9 [facility] Erythrocyte distribution width (RBC) [Ratio] 42.5 fl 35.1-43.9 [facility] Hemoglobin measurementOrdere d By: Renard Burgos on 05-20-2024 Hemoglobin (Bld) [Mass/Vol] 14.4 g/dL Normal 13.0-16.5 [facility] Comment on above: Order Comment: 109-1 Performed By: #### L 100.0100 ####[facility] [address] [place], [address] Immature granulocytes/100 WB C Auto (Bld)Ordered By: Renard Burgos on 05-20-2024 Immature granulocytes/100 WBC (Bld) 0.500 % 0.0-0.9 [facility] Comment on above: IG% - Immature Granu locytes (promyelocytes, myelocytes and metamyelocytes) > 1% indicates that a LEFT SHIFT is Present. Lymphocytes Auto (Unsp spec) [#/Vol]Ordered By: Renard Burgos on 05-20-2024 Lymphocytes (Bld) [#/Vol] 1.73 10*3/uL 0.83-4.51 [facility] MCV (mean corpuscular volume ) determinationOrdered By: Renard Burgos on 05-20-2024 MCV (RBC) [Entitic vol] 92.0 fL Normal 80-94 [facility] Comment on above: Order Comment: 109-1 Performed By: #### L 100.0100 ####[facility] [address] [place], [address] Mean corpuscular hemoglobin (MCH) determinationOrdered By: Renard Burgos on 05-20-2024 MCH (RBC) [Entitic mass] 30.4 pg Normal 27.0-32.0 [facility] Comment on above: Order Comment: 109-1 Performed By: #### L 100.0100 ####[facility] [address] [place], [place], [phone] Mean corpuscular hemoglobin concentration (MCHC) determinationOrdered By: Renard Burgos on 05-20-2024 MCHC (RBC) [Mass/Vol] 33.0 g/dL Normal 32-36 [facility] Comment on above: Order Comment: 109-1 Performed By: #### L 100.0100 ####[facility] [address] [place], [place], [phone] Mean platelet volume determi nationOrdered By: Renard Burgos on 05-20-2024 Platelet mean volume (Bld) [Entitic vol] 10.7 fL Normal 6.2-12.0 [facility] Comment on above: Order Comment: 109-1 Performed By: #### L 100.0100 ####[facility] [address] [place], [address] Monocyte percentageOrdered B y: Renard Burgos on 05-20-2024 Monocytes/100 WBC (Bld) 9.4 % Normal 0-10 [facility] Comment on above: Order Comment: 109-1 Performed By: #### L 100.0100 ####[facility] [address] [place], [address] Neutrophil percentageOrdered By: Renard Burgos on 05-20-2024 Neutrophils/100 WBC (Bld) 71.4 % High 47-70 [facility] Comment on above: Order Comment: 109-1 Performed By: #### L 100.0100 ####[facility] [address] [place], [address] Nucleated red blood cell per centageOrdered By: Renard Burgos on 05-20-2024 Nucleated RBC/100 WBC (Bld) [Ratio] 0 % 0-5 [facility] Platelet countOrdered By: Garrick Bhatt on 05-20-2024 Platelets (Bld) [#/Vol] 239 10*3/uL Normal 150-450 [facility] Comment on above: Order Comment: 109-1 Performed By: #### L 100.0100 ####[facility] [address] [place], [address] White blood cell (WBC) count Ordered By: Renard Burgos on 05-20-2024 WBC (Bld) [#/Vol] 9.8 10*3/uL Normal 4.4-11.0 [facility] Comment on above: Order Comment: 109-1 Performed By: #### L 100.0100 ####[facility] [address] [place], [address] Absolute lymphocyte countOrd ered By: Renard Burgos on 05-13-2024 Lymphocytes Auto (Unsp spec) [#/Vol] 2.10 10*3/uL 0.83-4.51 [facility] Absolute neutrophil countOrd ered By: Renard Burgos on 05-13-2024 Neutrophils (Bld) [#/Vol] 6.2 10*3/uL 2.0-7.7 [facility] Automated lymphocyte count a s percentage of total leukocytesOrdered By: Renard Hensleyrustam on 05-13-2024 Lymphocytes/100 WBC Auto (Unsp spec) 22.8 % 19-41 [facility] Basophil percentageOrdered B y: Renard Hensleyrustam on 05-13-2024 Basophils/100 WBC (Bld) 0.5 % 0-1 [facility] CBC W/Diff, Automatedon 05-01 Absolute Lymph 2.10 X10 3/uL Normal 0.83-4.51 [facility] Comment on above: Order Comment: 109 Performed By: #### L 100.0100 ####[facility] [address] [place], [address] Absolute Neut 6.2 X10 3/uL Normal 2.0-7.7 [facility] Comment on above: Order Comment: 109 Performed By: #### L 100.0100 ####[facility] [address] [place], [address] Basophils/100 WBC (Bld) 0.5 % Normal 0-1 [facility] Comment on above: Order Comment: 109 Performed By: #### L 100.0100 ####[facility] [address] [place], [address] Eosinophils/100 WBC (Bld) 0.5 % Normal 0-5 [facility] Comment on above: Order Comment: 109 Performed By: #### L 100.0100 ####[facility] [address] [place], [address] Erythrocyte distribution width (RBC) [Ratio] 12.9 % Normal 11.6-14.6 [facility] Comment on above: Order Comment: 109 Performed By: #### L 100.0100 ####[facility] [address] [place], [address] Hematocrit (Bld) [Volume fraction] 42.5 % Normal 40-54 [facility] Comment on above: Order Comment: 109 Performed By: #### L 100.0100 ####[facility] [address] [place], [address] Hemoglobin (Bld) [Mass/Vol] 14.2 g/dL Normal 13.0-16.5 [facility] Comment on above: Order Comment: 109 Performed By: #### L 100.0100 ####[facility] [address] [place], [address] IG% 0.300 Normal 0.0-0.9 [facility] Comment on above: Order Comment: 109 Result Comment: IG% - Immature Granulocytes (promyelocytes, myelocytes andmetamyelocytes) > 1% indicates that a LEFT SHIFT is Present. Performed By: #### L 100.0100 ####[facility] [address] [place], [address] Lymphocytes/100 WBC (Bld) 22.8 % Normal 19-41 [facility] Comment on above: Order Comment: 109 Performed By: #### L 100.0100 ####[facility] [address] [place], [address] MCH (RBC) [Entitic mass] 30.3 pg Normal 27.0-32.0 [facility] Comment on above: Order Comment: 109 Performed By: #### L 100.0100 ####[facility] [address] [place], [address] MCHC (RBC) [Mass/Vol] 33.4 g/dL Normal 32-36 [facility] Comment on above: Order Comment: 109 Performed By: #### L 100.0100 ####[facility] [address] [place], [address] MCV (RBC) [Entitic vol] 90.6 fL Normal 80-94 [facility] Comment on above: Order Comment: 109 Performed By: #### L 100.0100 ####[facility] [address] [place], [address] Monocytes/100 WBC (Bld) 8.7 % Normal 0-10 [facility] Comment on above: Order Comment: 109 Performed By: #### L 100.0100 ####[facility] [address] [place], [address] Neutrophils/100 WBC (Bld) 67.2 % Normal 47-70 [facility] Comment on above: Order Comment: 109 Performed By: #### L 100.0100 ####[facility] [address] [place], [address] Nucleated RBC (Bld) [#/Vol] 0 10*3/uL Normal 0-5 [facility] Comment on above: Order Comment: 109 Performed By: #### L 100.0100 ####[facility] [address] [place], [address] Platelet mean volume (Bld) [Entitic vol] 11.1 fL Normal 6.2-12.0 [facility] Comment on above: Order Comment: 109 Performed By: #### L 100.0100 ####[facility] [address] [place], [address] Platelets (Bld) [#/Vol] 218 10*3/uL Normal 150-450 [facility] Comment on above: Order Comment: 109 Performed By: #### L 100.0100 ####[facility] [address] [place], [address] RBC (Bld) [#/Vol] 4.69 10*6/uL Normal 4.6-6.2 [facility] Comment on above: Order Comment: 109 Performed By: #### L 100.0100 ####[facility] [address] [place], [address] RDW SD 42.3 fl Normal 35.1-43.9 [facility] Comment on above: Order Comment: 109 Performed By: #### L 100.0100 ####[facility] [address] [place], [address] WBC (Bld) [#/Vol] 9.2 10*3/uL Normal 4.4-11.0 [facility] Comment on above: Order Comment: 109 Performed By: #### L 100.0100 ####[facility] [address] [place], [address] Eosinophil percentageOrdered By: Renard Burgos on 05-13-2024 Eosinophils/100 WBC (Bld) 0.5 % 0-5 [facility] Erythrocyte distribution wid th ratioOrdered By: Renard Burgos on 05-13-2024 Erythrocyte distribution width (RBC) [Ratio] 12.9 % 11.6-14.6 [facility] Erythrocyte distribution wid th standard deviationOrdered By: Renard Burgos on 05-13-2024 Erythrocyte distribution width (RBC) [Entitic vol] 42.3 fL 35.1-43.9 [facility] Erythrocyte distribution width (RBC) [Ratio] 42.3 fl 35.1-43.9 [facility] Hematocrit Auto (Bld) [Volum e fraction]Ordered By: Renard Burgos on 05-13-2024 Hematocrit (Bld) [Volume fraction] 42.5 % 40-54 [facility] Hemoglobin measurementOrdere d By: Renard Burgos on 05-13-2024 Hemoglobin (Bld) [Mass/Vol] 14.2 g/dL 13.0-16.5 [facility] Immature granulocytes/100 WB C Auto (Bld)Ordered By: Renadr Burgos on 05-13-2024 Immature granulocytes/100 WBC (Bld) 0.300 % 0.0-0.9 [facility] Comment on above: IG% - Immature Granu locytes (promyelocytes, myelocytes and metamyelocytes) > 1% indicates that a LEFT SHIFT is Present. Lymphocytes Auto (Unsp spec) [#/Vol]Ordered By: Renard Burgos on 05-13-2024 Lymphocytes (Bld) [#/Vol] 2.10 10*3/uL 0.83-4.51 [facility] Lymphocytes/100 WBC Auto (Un sp spec)Ordered By: Renard Burgos on 05-13-2024 Lymphocytes/100 WBC (Bld) 22.8 % 19-41 [facility] MCV (mean corpuscular volume ) determinationOrdered By: Renard Burgos on 05-13-2024 MCV (RBC) [Entitic vol] 90.6 fL 80-94 [facility] Mean corpuscular hemoglobin (MCH) determinationOrdered By: Renard Burgos on 05-13-2024 MCH (RBC) [Entitic mass] 30.3 pg 27.0-32.0 [facility] Mean corpuscular hemoglobin concentration (MCHC) determinationOrdered By: Renard Burgos on 05-13-2024 MCHC (RBC) [Mass/Vol] 33.4 g/dL 32-36 [facility] Mean platelet volume determi nationOrdered By: Renard Burgos on 05-13-2024 Platelet mean volume (Bld) [Entitic vol] 11.1 fL 6.2-12.0 [facility] Monocyte percentageOrdered B y: Renard Burgos on 05-13-2024 Monocytes/100 WBC (Bld) 8.7 % 0-10 [facility] Neutrophil percentageOrdered By: Renard Burgos on 05-13-2024 Neutrophils/100 WBC (Bld) 67.2 % 47-70 [facility] Nucleated red blood cell per centageOrdered By: Renard Burgos on 05-13-2024 Nucleated RBC/100 WBC (Bld) [Ratio] 0 % 0-5 [facility] Platelet countOrdered By: Garrick Bhatt on 05-13-2024 Platelets (Bld) [#/Vol] 218 10*3/uL 150-450 [facility] RBC Auto (Bld) [#/Vol]Ordere d By: Renard Burgos on 05-13-2024 RBC (Bld) [#/Vol] 4.69 10*6/uL 4.6-6.2 [facility] White blood cell (WBC) count Ordered By: Renard Burgos on 05-13-2024 WBC (Bld) [#/Vol] 9.2 10*3/uL 4.4-11.0 [facility] Absolute neutrophil countOrd ered By: Renard Burgos on 05-06-2024 Neutrophils (Bld) [#/Vol] 5.9 10*3/uL 2.0-7.7 [facility] Automated blood erythrocyte countOrdered By: Renard Burgos on 05-06-2024 RBC (Bld) [#/Vol] 4.85 10*6/uL Normal 4.6-6.2 [facility] Comment on above: Order Comment: 109-1 Performed By: #### L 100.0100 ####[facility] [address] [place], [place], [phone] Automated blood hematocrit ( percentage)Ordered By: Renard Burgos on 05-06-2024 Hematocrit (Bld) [Volume fraction] 45.0 % Normal 40-54 [facility] Comment on above: Order Comment: 109-1 Performed By: #### L 100.0100 ####[facility] [address] [place], [place], [phone] Automated lymphocyte count a s percentage of total leukocytesOrdered By: Renard Burgos on 05-06-2024 Lymphocytes/100 WBC (Bld) 24.4 % Normal 19-41 [facility] Comment on above: Order Comment: 109-1 Performed By: #### L 100.0100 ####[facility] [address] [place], [place], [phone] Basophil percentageOrdered B y: Renard Burgos on 05-06-2024 Basophils/100 WBC (Bld) 0.5 % Normal 0-1 [facility] Comment on above: Order Comment: 109-1 Performed By: #### L 100.0100 ####[facility] [address] [place], [address] CBC W/Diff, Automatedon - Absolute Lymph 2.22 X10 3/uL Normal 0.83-4.51 [facility] Comment on above: Order Comment: 109-1 Performed By: #### L 100.0100 ####[facility] [address] [place], [address] Absolute Neut 5.9 X10 3/uL Normal 2.0-7.7 [facility] Comment on above: Order Comment: 109-1 Performed By: #### L 100.0100 ####[facility] [address] [place], [address] IG% 0.500 Normal 0.0-0.9 [facility] Comment on above: Order Comment: 109-1 Result Comment: IG% - Immature Granulocytes (promyelocytes, myelocytes andmetamyelocytes) > 1% indicates that a LEFT SHIFT is Present. Performed By: #### L 100.0100 ####[facility] [address] [place], [address] Nucleated RBC (Bld) [#/Vol] 0 10*3/uL Normal 0-5 [facility] Comment on above: Order Comment: 109-1 Performed By: #### L 100.0100 ####[facility] [address] [place], [address] RDW SD 43.9 fl Normal 35.1-43.9 [facility] Comment on above: Order Comment: 109-1 Performed By: #### L 100.0100 ####[facility] [address] [place], [address] Eosinophil percentageOrdered By: Renard Burgos on 05-06-2024 Eosinophils/100 WBC (Bld) 0.4 % Normal 0-5 [facility] Comment on above: Order Comment: 109-1 Performed By: #### L 100.0100 ####[facility] [address] [place], [place], [address] Erythrocyte distribution wid th ratioOrdered By: Renard Burgos on 05-06-2024 Erythrocyte distribution width (RBC) [Ratio] 13.0 % Normal 11.6-14.6 [facility] Comment on above: Order Comment: 109-1 Performed By: #### L 100.0100 ####[facility] [address] [place], [place], [address] Erythrocyte distribution wid th standard deviationOrdered By: Renard Burgos on 05-06-2024 Erythrocyte distribution width (RBC) [Entitic vol] 43.9 fL 35.1-43.9 [facility] Hemoglobin measurementOrdere d By: Renard Burgos on 05-06-2024 Hemoglobin (Bld) [Mass/Vol] 14.5 g/dL Normal 13.0-16.5 [facility] Comment on above: Order Comment: 109-1 Performed By: #### L 100.0100 ####[facility] [address] [place], [place], [phone] Immature granulocytes/100 WB C Auto (Bld)Ordered By: Renard Burgos on 05-06-2024 Immature granulocytes/100 WBC (Bld) 0.500 % 0.0-0.9 [facility] Comment on above: IG% - Immature Granu locytes (promyelocytes, myelocytes and metamyelocytes) > 1% indicates that a LEFT SHIFT is Present. Lymphocytes Auto (Unsp spec) [#/Vol]Ordered By: Renard Burgos on 05-06-2024 Lymphocytes (Bld) [#/Vol] 2.22 10*3/uL 0.83-4.51 [facility] MCV (mean corpuscular volume ) determinationOrdered By: Renard Burgos on 05-06-2024 MCV (RBC) [Entitic vol] 92.8 fL Normal 80-94 [facility] Comment on above: Order Comment: 109-1 Performed By: #### L 100.0100 ####[facility] [address] [place], [address] Mean corpuscular hemoglobin (MCH) determinationOrdered By: Renard Burgos on 05-06-2024 MCH (RBC) [Entitic mass] 29.9 pg Normal 27.0-32.0 [facility] Comment on above: Order Comment: 109-1 Performed By: #### L 100.0100 ####[facility] [address] [place], [place], [phone] Mean corpuscular hemoglobin concentration (MCHC) determinationOrdered By: Renard Burgos on 05-06-2024 MCHC (RBC) [Mass/Vol] 32.2 g/dL Normal 32-36 [facility] Comment on above: Order Comment: 109-1 Performed By: #### L 100.0100 ####[facility] [address] [place], [place], [phone] Mean platelet volume determi nationOrdered By: Renard Burgos on 05-06-2024 Platelet mean volume (Bld) [Entitic vol] 11.4 fL Normal 6.2-12.0 [facility] Comment on above: Order Comment: 109-1 Performed By: #### L 100.0100 ####[facility] [address] [place], [place], [phone] Monocyte percentageOrdered B y: Renard Burgos on 05-06-2024 Monocytes/100 WBC (Bld) 9.7 % Normal 0-10 [facility] Comment on above: Order Comment: 109-1 Performed By: #### L 100.0100 ####[facility] [address] [place], [address] Neutrophil percentageOrdered By: Renard Burgos on 05-06-2024 Neutrophils/100 WBC (Bld) 64.5 % Normal 47-70 [facility] Comment on above: Order Comment: 109-1 Performed By: #### L 100.0100 ####[facility] [address] [place], [phone] Nucleated red blood cell per centageOrdered By: Renard Burgos on 05-06-2024 Nucleated RBC/100 WBC (Bld) [Ratio] 0 % 0-5 [facility] Platelet countOrdered By: Garrick Bhatt on 05-06-2024 Platelets (Bld) [#/Vol] 201 10*3/uL Normal 150-450 [facility] Comment on above: Order Comment: 109-1 Performed By: #### L 100.0100 ####[facility] [address] [place], [place], [phone] White blood cell (WBC) count Ordered By: Renard Burgos on 05-06-2024 WBC (Bld) [#/Vol] 9.1 10*3/uL Normal 4.4-11.0 [facility] Comment on above: Order Comment: 109-1 Performed By: #### L 100.0100 ####[facility] [address] [place], [place], [phone] 36on 05-03-2024 36 Gissel is calling to let Dr. Burgos know that the medication he prescribed he not certified, she is going to fax the information to the office. [phone] Normal [facility] Absolute neutrophil countOrd ered By: Renard Burgos on 04-29-2024 Neutrophils (Bld) [#/Vol] 6.3 10*3/uL 2.0-7.7 [facility] Basophil percentageOrdered B y: Renard Burgos on 04-29-2024 Basophils/100 WBC (Bld) 0.4 % 0-1 [facility] CBC W/Diff, Automatedon 04-02 Absolute Lymph 2.11 X10 3/uL Normal 0.83-4.51 [facility] Comment on above: Order Comment: 109.1 Performed By: #### L 100.0100 ####[facility] [address] [place], [place], [phone] Absolute Neut 6.3 X10 3/uL Normal 2.0-7.7 [facility] Comment on above: Order Comment: 109.1 Performed By: #### L 100.0100 ####[facility] [address] [place], [address] Basophils/100 WBC (Bld) 0.4 % Normal 0-1 [facility] Comment on above: Order Comment: 109.1 Performed By: #### L 100.0100 ####[facility] [address] [place], [address] Eosinophils/100 WBC (Bld) 0.4 % Normal 0-5 [facility] Comment on above: Order Comment: 109.1 Performed By: #### L 100.0100 ####[facility] [address], [address] Erythrocyte distribution width (RBC) [Ratio] 12.6 % Normal 11.6-14.6 [facility] Comment on above: Order Comment: 109.1 Performed By: #### L 100.0100 ####[facility] [address] [place], [address] Hematocrit (Bld) [Volume fraction] 41.6 % Normal 40-54 [facility] Comment on above: Order Comment: 109.1 Performed By: #### L 100.0100 ####[facility] [address] [place], [address] Hemoglobin (Bld) [Mass/Vol] 13.7 g/dL Normal 13.0-16.5 [facility] Comment on above: Order Comment: 109.1 Performed By: #### L 100.0100 ####[facility] [address] [place], [address] IG% 0.400 Normal 0.0-0.9 [facility] Comment on above: Order Comment: 109.1 Result Comment: IG% - Immature Granulocytes (promyelocytes, myelocytes andmetamyelocytes) > 1% indicates that a LEFT SHIFT is Present. Performed By: #### L 100.0100 ####[facility] [address] [place], [address] Lymphocytes/100 WBC (Bld) 22.6 % Normal 19-41 [facility] Comment on above: Order Comment: 109.1 Performed By: #### L 100.0100 ####[facility] [address] [place], [address] MCH (RBC) [Entitic mass] 30.1 pg Normal 27.0-32.0 [facility] Comment on above: Order Comment: 109.1 Performed By: #### L 100.0100 ####[facility] [address] [place], [address] MCHC (RBC) [Mass/Vol] 32.9 g/dL Normal 32-36 [facility] Comment on above: Order Comment: 109.1 Performed By: #### L 100.0100 ####[facility] [address] [place], [address] MCV (RBC) [Entitic vol] 91.4 fL Normal 80-94 [facility] Comment on above: Order Comment: 109.1 Performed By: #### L 100.0100 ####[facility] [address], [address] Monocytes/100 WBC (Bld) 9.3 % Normal 0-10 [facility] Comment on above: Order Comment: 109.1 Performed By: #### L 100.0100 ####[facility] [address] [place], [address] Neutrophils/100 WBC (Bld) 66.9 % Normal 47-70 [facility] Comment on above: Order Comment: 109.1 Performed By: #### L 100.0100 ####[facility] [address] [place], [address] Nucleated RBC (Bld) [#/Vol] 0 10*3/uL Normal 0-5 [facility] Comment on above: Order Comment: 109.1 Performed By: #### L 100.0100 ####[facility] [address] [place], [address] Platelet mean volume (Bld) [Entitic vol] 11.0 fL Normal 6.2-12.0 [facility] Comment on above: Order Comment: 109.1 Performed By: #### L 100.0100 ####[facility] [address] [place], [address] Platelets (Bld) [#/Vol] 211 10*3/uL Normal 150-450 [facility] Comment on above: Order Comment: 109.1 Performed By: #### L 100.0100 ####[facility] [address] [place], [address] RBC (Bld) [#/Vol] 4.55 10*6/uL Low 4.6-6.2 [facility] Comment on above: Order Comment: 109.1 Performed By: #### L 100.0100 ####[facility] [address] [place], [address] RDW SD 41.5 fl Normal 35.1-43.9 [facility] Comment on above: Order Comment: 109.1 Performed By: #### L 100.0100 ####[facility] [address] [place], [address] WBC (Bld) [#/Vol] 9.4 10*3/uL Normal 4.4-11.0 [facility] Comment on above: Order Comment: 109.1 Performed By: #### L 100.0100 ####[facility] [address] [place], [address] Eosinophil percentageOrdered By: Renard Burgos on 04-29-2024 Eosinophils/100 WBC (Bld) 0.4 % 0-5 [facility] Erythrocyte distribution wid th ratioOrdered By: Renard Burgos on 04-29-2024 Erythrocyte distribution width (RBC) [Ratio] 12.6 % 11.6-14.6 [facility] Erythrocyte distribution wid th standard deviationOrdered By: Renard Burgos on 04-29-2024 Erythrocyte distribution width (RBC) [Entitic vol] 41.5 fL 35.1-43.9 [facility] Hematocrit Auto (Bld) [Volum e fraction]Ordered By: Renard Burgos on 04-29-2024 Hematocrit (Bld) [Volume fraction] 41.6 % 40-54 [facility] Hemoglobin measurementOrdere d By: Renard Burgos on 04-29-2024 Hemoglobin (Bld) [Mass/Vol] 13.7 g/dL 13.0-16.5 [facility] Immature granulocytes/100 WB C Auto (Bld)Ordered By: Renard Burgos on 04-29-2024 Immature granulocytes/100 WBC (Bld) 0.400 % 0.0-0.9 [facility] Comment on above: IG% - Immature Granu locytes (promyelocytes, myelocytes and metamyelocytes) > 1% indicates that a LEFT SHIFT is Present. Lymphocytes Auto (Unsp spec) [#/Vol]Ordered By: Renard Burgos on 04-29-2024 Lymphocytes (Bld) [#/Vol] 2.11 10*3/uL 0.83-4.51 [facility] Lymphocytes/100 WBC Auto (Un sp spec)Ordered By: Renard Burgos on 04-29-2024 Lymphocytes/100 WBC (Bld) 22.6 % 19-41 [facility] MCV (mean corpuscular volume ) determinationOrdered By: Renard Burgos on 04-29-2024 MCV (RBC) [Entitic vol] 91.4 fL 80-94 [facility] Mean corpuscular hemoglobin (MCH) determinationOrdered By: Renard Burgos on 04-29-2024 MCH (RBC) [Entitic mass] 30.1 pg 27.0-32.0 [facility] Mean corpuscular hemoglobin concentration (MCHC) determinationOrdered By: Renard Burgos on 04-29-2024 MCHC (RBC) [Mass/Vol] 32.9 g/dL 32-36 [facility] Mean platelet volume determi nationOrdered By: Renard Burgos on 04-29-2024 Platelet mean volume (Bld) [Entitic vol] 11.0 fL 6.2-12.0 [facility] Monocyte percentageOrdered B y: Renard Burgos on 04-29-2024 Monocytes/100 WBC (Bld) 9.3 % 0-10 [facility] Neutrophil percentageOrdered By: Renard Burgos on 04-29-2024 Neutrophils/100 WBC (Bld) 66.9 % 47-70 [facility] Nucleated red blood cell per centageOrdered By: Renard Burgos on 04-29-2024 Nucleated RBC/100 WBC (Bld) [Ratio] 0 % 0-5 [facility] Platelet countOrdered By: Garrick Bhatt on 04-29-2024 Platelets (Bld) [#/Vol] 211 10*3/uL 150-450 [facility] RBC Auto (Bld) [#/Vol]Ordere d By: Renard Burgos on 04-29-2024 RBC (Bld) [#/Vol] 4.55 10*6/uL Low 4.6-6.2 [facility] White blood cell (WBC) count Ordered By: Renard Burgos on 04-29-2024 WBC (Bld) [#/Vol] 9.4 10*3/uL 4.4-11.0 [facility] Absolute neutrophil countOrd ered By: Renard Burgos on 04-22-2024 Neutrophils (Bld) [#/Vol] 8.1 10*3/uL High 2.0-7.7 [facility] Basophil percentageOrdered B y: Renard Burgos on 04-22-2024 Basophils/100 WBC (Bld) 0.5 % 0-1 [facility] CBC W/Diff, Automatedon 04-01 Absolute Lymph 2.61 X10 3/uL Normal 0.83-4.51 [facility] Comment on above: Order Comment: 109-1 Performed By: #### L 100.0100 ####[facility] [address] [place], [address] Absolute Neut 8.1 X10 3/uL High 2.0-7.7 [facility] Comment on above: Order Comment: 109-1 Performed By: #### L 100.0100 ####[facility] [address] [place], [address] Basophils/100 WBC (Bld) 0.5 % Normal 0-1 [facility] Comment on above: Order Comment: 109-1 Performed By: #### L 100.0100 ####[facility] [address] [place], [address] Eosinophils/100 WBC (Bld) 0.4 % Normal 0-5 [facility] Comment on above: Order Comment: 109-1 Performed By: #### L 100.0100 ####[facility] [address] [place], [address] Erythrocyte distribution width (RBC) [Ratio] 12.6 % Normal 11.6-14.6 [facility] Comment on above: Order Comment: 109-1 Performed By: #### L 100.0100 ####[facility] [address] [place], [address] Hematocrit (Bld) [Volume fraction] 44.5 % Normal 40-54 [facility] Comment on above: Order Comment: 109-1 Performed By: #### L 100.0100 ####[facility] [address] [place], [address] Hemoglobin (Bld) [Mass/Vol] 14.3 g/dL Normal 13.0-16.5 [facility] Comment on above: Order Comment: 109-1 Performed By: #### L 100.0100 ####[facility] [address] [place], [address] IG% 0.300 Normal 0.0-0.9 [facility] Comment on above: Order Comment: 109-1 Result Comment: IG% - Immature Granulocytes (promyelocytes, myelocytes andmetamyelocytes) > 1% indicates that a LEFT SHIFT is Present. Performed By: #### L 100.0100 ####[facility] [address] [place], [address] Lymphocytes/100 WBC (Bld) 22.0 % Normal 19-41 [facility] Comment on above: Order Comment: 109-1 Performed By: #### L 100.0100 ####[facility] [address] [place], [address] MCH (RBC) [Entitic mass] 29.7 pg Normal 27.0-32.0 [facility] Comment on above: Order Comment: 109-1 Performed By: #### L 100.0100 ####[facility] [address] [place], [address] MCHC (RBC) [Mass/Vol] 32.1 g/dL Normal 32-36 [facility] Comment on above: Order Comment: 109-1 Performed By: #### L 100.0100 ####[facility] [address] [place], [address] MCV (RBC) [Entitic vol] 92.5 fL Normal 80-94 [facility] Comment on above: Order Comment: 109-1 Performed By: #### L 100.0100 ####[facility] [address], [address] Monocytes/100 WBC (Bld) 8.3 % Normal 0-10 [facility] Comment on above: Order Comment: 109-1 Performed By: #### L 100.0100 ####[facility] [address] [place], [address] Neutrophils/100 WBC (Bld) 68.5 % Normal 47-70 [facility] Comment on above: Order Comment: 109-1 Performed By: #### L 100.0100 ####[facility] [address] [place], [address] Nucleated RBC (Bld) [#/Vol] 0 10*3/uL Normal 0-5 [facility] Comment on above: Order Comment: 109-1 Performed By: #### L 100.0100 ####[facility] [address] [place], [address] Platelet mean volume (Bld) [Entitic vol] 11.0 fL Normal 6.2-12.0 [facility] Comment on above: Order Comment: 109-1 Performed By: #### L 100.0100 ####[facility] [address] [place], [address] Platelets (Bld) [#/Vol] 190 10*3/uL Normal 150-450 [facility] Comment on above: Order Comment: 109-1 Performed By: #### L 100.0100 ####[facility] [address] [place], [address] RBC (Bld) [#/Vol] 4.81 10*6/uL Normal 4.6-6.2 [facility] Comment on above: Order Comment: 109-1 Performed By: #### L 100.0100 ####[facility] [address] [place], [address] RDW SD 43.0 fl Normal 35.1-43.9 [facility] Comment on above: Order Comment: 109-1 Performed By: #### L 100.0100 ####[facility] [address] [place], [address] WBC (Bld) [#/Vol] 11.9 10*3/uL High 4.4-11.0 [facility] Comment on above: Order Comment: 109-1 Performed By: #### L 100.0100 ####[facility] [address] [place], [address] Eosinophil percentageOrdered By: Renard Burgos on 04-22-2024 Eosinophils/100 WBC (Bld) 0.4 % 0-5 [facility] Erythrocyte distribution wid th ratioOrdered By: Renard Burgos on 04-22-2024 Erythrocyte distribution width (RBC) [Ratio] 12.6 % 11.6-14.6 [facility] Erythrocyte distribution wid th standard deviationOrdered By: Renard Burgos on 04-22-2024 Erythrocyte distribution width (RBC) [Entitic vol] 43.0 fL 35.1-43.9 [facility] Hematocrit Auto (Bld) [Volum e fraction]Ordered By: Renard Burgos on 04-22-2024 Hematocrit (Bld) [Volume fraction] 44.5 % 40-54 [facility] Hemoglobin measurementOrdere d By: Renard Burgos on 04-22-2024 Hemoglobin (Bld) [Mass/Vol] 14.3 g/dL 13.0-16.5 [facility] Immature granulocytes/100 WB C Auto (Bld)Ordered By: Renard Burgos on 04-22-2024 Immature granulocytes/100 WBC (Bld) 0.300 % 0.0-0.9 [facility] Comment on above: IG% - Immature Granu locytes (promyelocytes, myelocytes and metamyelocytes) > 1% indicates that a LEFT SHIFT is Present. Lymphocytes Auto (Unsp spec) [#/Vol]Ordered By: Renard Burgos on 04-22-2024 Lymphocytes (Bld) [#/Vol] 2.61 10*3/uL 0.83-4.51 [facility] Lymphocytes/100 WBC Auto (Un sp spec)Ordered By: Renard Burgos on 04-22-2024 Lymphocytes/100 WBC (Bld) 22.0 % 19-41 [facility] MCV (mean corpuscular volume ) determinationOrdered By: Renard Burgos on 04-22-2024 MCV (RBC) [Entitic vol] 92.5 fL 80-94 [facility] Mean corpuscular hemoglobin (MCH) determinationOrdered By: Renard Burgos on 04-22-2024 MCH (RBC) [Entitic mass] 29.7 pg 27.0-32.0 [facility] Mean corpuscular hemoglobin concentration (MCHC) determinationOrdered By: Renard Burgos on 04-22-2024 MCHC (RBC) [Mass/Vol] 32.1 g/dL 32-36 [facility] Mean platelet volume determi nationOrdered By: Renard Burgos on 04-22-2024 Platelet mean volume (Bld) [Entitic vol] 11.0 fL 6.2-12.0 [facility] Monocyte percentageOrdered B y: Renard Burgos on 04-22-2024 Monocytes/100 WBC (Bld) 8.3 % 0-10 [facility] Neutrophil percentageOrdered By: Renard Burgos on 04-22-2024 Neutrophils/100 WBC (Bld) 68.5 % 47-70 [facility] [facility] Nucleated red blood cell per centageOrdered By: Renard Burgos on 04-22-2024 Nucleated RBC/100 WBC (Bld) [Ratio] 0 % 0-5 [facility] Platelet countOrdered By: Garrick Bhatt on 04-22-2024 Platelets (Bld) [#/Vol] 190 10*3/uL 150-450 [facility] RBC Auto (Bld) [#/Vol]Ordere d By: Renard Burgos on 04-22-2024 RBC (Bld) [#/Vol] 4.81 10*6/uL 4.6-6.2 [facility] White blood cell (WBC) count Ordered By: Renard Burgos on 04-22-2024 WBC (Bld) [#/Vol] 11.9 10*3/uL High 4.4-11.0 [facility] Absolute neutrophil countOrd ered By: Renard Burgos on 04-15-2024 Neutrophils (Bld) [#/Vol] 8.7 10*3/uL High 2.0-7.7 [facility] Basophil percentageOrdered B y: Renard Burgos on 04-15-2024 Basophils/100 WBC (Bld) 0.3 % 0-1 [facility] Bilirubin, totalOrdered By: Renard Burgos on 04-15-2024 Bilirubin [Mass/Vol] 0.30 mg/dL 0.20-1.00 [facility] Comment on above: For patients on eltr ombopag therapy, use of Dimension [place] TBIL is not recommended. Bilirubin.direct [Mass/Vol]O rdered By: Renard Burgos on 04-15-2024 Direct Bilirubin < 0.05 mg/dL 0.00-0.30 [facility] CBC W/Diff, Automatedon 03-31 Absolute Lymph 1.93 X10 3/uL Normal 0.83-4.51 [facility] Comment on above: Order Comment: 109-1 Performed By: #### L 100.0100, L500.3400 ####[facility] [address] [place], [address] Absolute Neut 8.7 X10 3/uL High 2.0-7.7 [facility] Comment on above: Order Comment: 109-1 Performed By: #### L 100.0100, L500.3400 ####[facility] [address] [place], [address] Basophils/100 WBC (Bld) 0.3 % Normal 0-1 [facility] Comment on above: Order Comment: 109-1 Performed By: #### L 100.0100, L500.3400 ####[facility] [address] [place], [address] Eosinophils/100 WBC (Bld) 0.4 % Normal 0-5 [facility] Comment on above: Order Comment: 109-1 Performed By: #### L 100.0100, L500.3400 ####[facility] [address] [place], [address] Erythrocyte distribution width (RBC) [Ratio] 12.8 % Normal 11.6-14.6 [facility] Comment on above: Order Comment: 109-1 Performed By: #### L 100.0100, L500.3400 ####[facility] [address] [place], [address] Hematocrit (Bld) [Volume fraction] 42.5 % Normal 40-54 [facility] Comment on above: Order Comment: 109-1 Performed By: #### L 100.0100, L500.3400 ####[facility] [address] [place], [address] Hemoglobin (Bld) [Mass/Vol] 13.7 g/dL Normal 13.0-16.5 [facility] Comment on above: Order Comment: 109-1 Performed By: #### L 100.0100, L500.3400 ####[facility] [address] [place], [address] IG% 0.400 Normal 0.0-0.9 [facility] Comment on above: Order Comment: 109-1 Result Comment: IG% - Immature Granulocytes (promyelocytes, myelocytes andmetamyelocytes) > 1% indicates that a LEFT SHIFT is Present. Performed By: #### L 100.0100, L500.3400 ####[facility] [address] [place], [address] Lymphocytes/100 WBC (Bld) 16.9 % Low 19-41 [facility] Comment on above: Order Comment: 109-1 Performed By: #### L 100.0100, L500.3400 ####[facility] [address] [place], [address] MCH (RBC) [Entitic mass] 29.5 pg Normal 27.0-32.0 [facility] Comment on above: Order Comment: 109-1 Performed By: #### L 100.0100, L500.3400 ####[facility] [address] [place], [address] MCHC (RBC) [Mass/Vol] 32.2 g/dL Normal 32-36 [facility] Comment on above: Order Comment: 109-1 Performed By: #### L 100.0100, L500.3400 ####[facility] [address] [place], [address] MCV (RBC) [Entitic vol] 91.6 fL Normal 80-94 [facility] Comment on above: Order Comment: 109-1 Performed By: #### L 100.0100, L500.3400 ####[facility] [address] [place], [address] Monocytes/100 WBC (Bld) 6.0 % Normal 0-10 [facility] Comment on above: Order Comment: 109-1 Performed By: #### L 100.0100, L500.3400 ####[facility] [address] [place], [address] Neutrophils/100 WBC (Bld) 76.0 % High 47-70 [facility] Comment on above: Order Comment: 109-1 Performed By: #### L 100.0100, L500.3400 ####[facility] [address] [place], [address] Nucleated RBC (Bld) [#/Vol] 0 10*3/uL Normal 0-5 [facility] Comment on above: Order Comment: 109-1 Performed By: #### L 100.0100, L500.3400 ####[facility] [address] [place], [address] Platelet mean volume (Bld) [Entitic vol] 11.1 fL Normal 6.2-12.0 [facility] Comment on above: Order Comment: 109-1 Performed By: #### L 100.0100, L500.3400 ####[facility] [address] [place], [address] Platelets (Bld) [#/Vol] 197 10*3/uL Normal 150-450 [facility] Comment on above: Order Comment: 109-1 Performed By: #### L 100.0100, L500.3400 ####[facility] [address] [place], [address] RBC (Bld) [#/Vol] 4.64 10*6/uL Normal 4.6-6.2 [facility] Comment on above: Order Comment: 109-1 Performed By: #### L 100.0100, L500.3400 ####[facility] [address] [place], [address] RDW SD 42.5 fl Normal 35.1-43.9 [facility] Comment on above: Order Comment: 109-1 Performed By: #### L 100.0100, L500.3400 ####[facility] [address] [place], [address] WBC (Bld) [#/Vol] 11.4 10*3/uL High 4.4-11.0 [facility] Comment on above: Order Comment: 109-1 Performed By: #### L 100.0100, L500.3400 ####[facility] [address] [place], [address] Eosinophil percentageOrdered By: Renard Burgos on 04-15-2024 Eosinophils/100 WBC (Bld) 0.4 % 0-5 [facility] Erythrocyte distribution wid th ratioOrdered By: Renard Burgos on 04-15-2024 Erythrocyte distribution width (RBC) [Ratio] 12.8 % 11.6-14.6 [facility] Erythrocyte distribution wid th standard deviationOrdered By: Renard Burgos on 04-15-2024 Erythrocyte distribution width (RBC) [Entitic vol] 42.5 fL 35.1-43.9 [facility] Hematocrit Auto (Bld) [Volum e fraction]Ordered By: Renard Burgos on 04-15-2024 Hematocrit (Bld) [Volume fraction] 42.5 % 40-54 [facility] Hemoglobin measurementOrdere d By: Renard Burgos on 04-15-2024 Hemoglobin (Bld) [Mass/Vol] 13.7 g/dL 13.0-16.5 [facility] Immature granulocytes/100 WB C Auto (Bld)Ordered By: Renard Burgos on 04-15-2024 Immature granulocytes/100 WBC (Bld) 0.400 % 0.0-0.9 [facility] Comment on above: IG% - Immature Granu locytes (promyelocytes, myelocytes and metamyelocytes) > 1% indicates that a LEFT SHIFT is Present. Laboratory - Chemistry and C hemistry - challengeOrdered By: Renard Burgos on 04-15-2024 AST [Catalytic activity/Vol] 18 U/L 15-37 [facility] Comment on above: Slight Hemolysis, Re sult may be falsely increased. Liver Profileon 04-15-2024 Albumin [Mass/Vol] 2.9 g/dL Low 3.2-5.0 [facility] Comment on above: Order Comment: 109-1 Performed By: #### L 100.0100, L500.3400 ####[facility] [address] [place], [address] ALK P 126 U/L High 45-117 [facility] Comment on above: Order Comment: 109-1 Performed By: #### L 100.0100, L500.3400 ####[facility] [address] [place], [address] ALT [Catalytic activity/Vol] 21 U/L Normal 16-61 [facility] Comment on above: Order Comment: 109-1 Performed By: #### L 100.0100, L500.3400 ####[facility] [address] [place], [address] AST [Catalytic activity/Vol] 18 U/L Normal 15-37 [facility] Comment on above: Order Comment: 109-1 Result Comment: Slig ht Hemolysis, Result may be falsely increased. Performed By: #### L 100.0100, L500.3400 ####[facility] [address] [place], [address] Bilirubin [Mass/Vol] 0.30 mg/dL Normal 0.20-1.00 [facility] Comment on above: Order Comment: 109-1 Result Comment: For patients on eltrombopag therapy, use of Dimension [place] TBIL is not recommended. Performed By: #### L 100.0100, L500.3400 ####[facility] [address] [place], [address] D BILI < 0.05 Normal 0.00-0.30 [facility] Comment on above: Order Comment: 109-1 Performed By: #### L 100.0100, L500.3400 ####[facility] [address] [place], [address] Globulin (S) [Mass/Vol] 3.0 g/dL Normal 2.2-4.2 [facility] Comment on above: Order Comment: 109-1 Performed By: #### L 100.0100, L500.3400 ####[facility] [address] [place], [address] T PROT 5.9 g/dL Low 6.4-8.2 [facility] Comment on above: Order Comment: 109-1 Performed By: #### L 100.0100, L500.3400 ####[facility] [address] [place], [address] Lymphocytes Auto (Unsp spec) [#/Vol]Ordered By: Renard Burgos on 04-15-2024 Lymphocytes (Bld) [#/Vol] 1.93 10*3/uL 0.83-4.51 [facility] Lymphocytes/100 WBC Auto (Un sp spec)Ordered By: Renard Burgos on 04-15-2024 Lymphocytes/100 WBC (Bld) 16.9 % Low 19-41 [facility] MCV (mean corpuscular volume ) determinationOrdered By: Renard Burgos on 04-15-2024 MCV (RBC) [Entitic vol] 91.6 fL 80-94 [facility] Mean corpuscular hemoglobin (MCH) determinationOrdered By: Renard Burgos on 04-15-2024 MCH (RBC) [Entitic mass] 29.5 pg 27.0-32.0 [facility] Mean corpuscular hemoglobin concentration (MCHC) determinationOrdered By: Renard Burgos on 04-15-2024 MCHC (RBC) [Mass/Vol] 32.2 g/dL 32-36 [facility] Mean platelet volume determi nationOrdered By: Renard Burgos on 04-15-2024 Platelet mean volume (Bld) [Entitic vol] 11.1 fL 6.2-12.0 [facility] Monocyte percentageOrdered B y: Renard Burgos on 04-15-2024 Monocytes/100 WBC (Bld) 6.0 % 0-10 [facility] Neutrophil percentageOrdered By: Renard Burgos on 04-15-2024 Neutrophils/100 WBC (Bld) 76.0 % High 47-70 [facility] Nucleated red blood cell per centageOrdered By: Renard Burgos on 04-15-2024 Nucleated RBC/100 WBC (Bld) [Ratio] 0 % 0-5 [facility] Platelet countOrdered By: Garrick Bhatt on 04-15-2024 Platelets (Bld) [#/Vol] 197 10*3/uL 150-450 [facility] RBC Auto (Bld) [#/Vol]Ordere d By: Renard Burgos on 04-15-2024 RBC (Bld) [#/Vol] 4.64 10*6/uL 4.6-6.2 [facility] Serum globulin measurementOr dered By: Renard Burgos on 04-15-2024 Globulin (S) [Mass/Vol] 3.0 g/dL 2.2-4.2 [facility] Serum or plasma alanine kay otransferase (ALT) measurementOrdered By: Renard Burgos on 04-15-2024 ALT [Catalytic activity/Vol] 21 U/L 16-61 [facility] Serum or plasma albumin gordy urement (mass/volume)Ordered By: Renard Burgos on 04-15-2024 Albumin [Mass/Vol] 2.9 g/dL Low 3.2-5.0 [facility] Serum or plasma alkaline trace sphatase measurementOrdered By: Renard Burgos on 04-15-2024 ALP [Catalytic activity/Vol] 126 U/L High 45-117 [facility] Total proteinOrdered By: Lyubov Burgos on 04-15-2024 Protein [Mass/Vol] 5.9 g/dL Low 6.4-8.2 [facility] White blood cell (WBC) count Ordered By: Renard Burgos on 04-15-2024 WBC (Bld) [#/Vol] 11.4 10*3/uL High 4.4-11.0 [facility] Absolute neutrophil countOrd ered By: Renard Burgos on 04-08-2024 Neutrophils (Bld) [#/Vol] 5.7 10*3/uL 2.0-7.7 [facility] Basophil percentageOrdered B y: Renard Burgos on 04-08-2024 Basophils/100 WBC (Bld) 0.6 % 0-1 [facility] CBC W/Diff, Automatedon Absolute Lymph 2.27 X10 3/uL Normal 0.83-4.51 [facility] Comment on above: Order Comment: 109.1 Performed By: #### L 100.0100 ####[facility] [address] [place], [address] Absolute Neut 5.7 X10 3/uL Normal 2.0-7.7 [facility] Comment on above: Order Comment: 109.1 Performed By: #### L 100.0100 ####[facility] [address] [place], [address] Basophils/100 WBC (Bld) 0.6 % Normal 0-1 [facility] Comment on above: Order Comment: 109.1 Performed By: #### L 100.0100 ####[facility] [address] [place], [address] Eosinophils/100 WBC (Bld) 0.5 % Normal 0-5 [facility] Comment on above: Order Comment: 109.1 Performed By: #### L 100.0100 ####[facility] [address] [place], [address] Erythrocyte distribution width (RBC) [Ratio] 12.6 % Normal 11.6-14.6 [facility] Comment on above: Order Comment: 109.1 Performed By: #### L 100.0100 ####[facility] [address] [place], [address] Hematocrit (Bld) [Volume fraction] 41.2 % Normal 40-54 [facility] Comment on above: Order Comment: 109.1 Performed By: #### L 100.0100 ####[facility] [address] [place], [address] Hemoglobin (Bld) [Mass/Vol] 13.3 g/dL Normal 13.0-16.5 [facility] Comment on above: Order Comment: 109.1 Performed By: #### L 100.0100 ####[facility] [address] [place], [address] IG% 0.200 Normal 0.0-0.9 [facility] Comment on above: Order Comment: 109.1 Result Comment: IG% - Immature Granulocytes (promyelocytes, myelocytes andmetamyelocytes) > 1% indicates that a LEFT SHIFT is Present. Performed By: #### L 100.0100 ####[facility] [address] [place], [address] Lymphocytes/100 WBC (Bld) 26.0 % Normal 19-41 [facility] Comment on above: Order Comment: 109.1 Performed By: #### L 100.0100 ####[facility] [address] [place], [address] MCH (RBC) [Entitic mass] 29.6 pg Normal 27.0-32.0 [facility] Comment on above: Order Comment: 109.1 Performed By: #### L 100.0100 ####[facility] [address] [place], [address] MCHC (RBC) [Mass/Vol] 32.3 g/dL Normal 32-36 [facility] Comment on above: Order Comment: 109.1 Performed By: #### L 100.0100 ####[facility] [address] [place], [address] MCV (RBC) [Entitic vol] 91.8 fL Normal 80-94 [facility] Comment on above: Order Comment: 109.1 Performed By: #### L 100.0100 ####[facility] [address] [place], [address] Monocytes/100 WBC (Bld) 7.8 % Normal 0-10 [facility] Comment on above: Order Comment: 109.1 Performed By: #### L 100.0100 ####[facility] [address] [place], [address] Neutrophils/100 WBC (Bld) 64.9 % Normal 47-70 [facility] Comment on above: Order Comment: 109.1 Performed By: #### L 100.0100 ####[facility] [address] [place], [address] Nucleated RBC (Bld) [#/Vol] 0 10*3/uL Normal 0-5 [facility] Comment on above: Order Comment: 109.1 Performed By: #### L 100.0100 ####[facility] [address] [place], [address] Platelet mean volume (Bld) [Entitic vol] 10.8 fL Normal 6.2-12.0 [facility] Comment on above: Order Comment: 109.1 Performed By: #### L 100.0100 ####[facility] [address] [place], [address] Platelets (Bld) [#/Vol] 208 10*3/uL Normal 150-450 [facility] Comment on above: Order Comment: 109.1 Performed By: #### L 100.0100 ####[facility] [address] [place], [address] RBC (Bld) [#/Vol] 4.49 10*6/uL Low 4.6-6.2 [facility] Comment on above: Order Comment: 109.1 Performed By: #### L 100.0100 ####[facility] [address] [place], [address] RDW SD 42.4 fl Normal 35.1-43.9 [facility] Comment on above: Order Comment: 109.1 Performed By: #### L 100.0100 ####[facility] [address] [place], [address] WBC (Bld) [#/Vol] 8.7 10*3/uL Normal 4.4-11.0 [facility] Comment on above: Order Comment: 109.1 Performed By: #### L 100.0100 ####[facility] [address] [place], [address] Eosinophil percentageOrdered By: Renard Burgos on 04-08-2024 Eosinophils/100 WBC (Bld) 0.5 % 0-5 [facility] Erythrocyte distribution wid th ratioOrdered By: Renard Burgos on 04-08-2024 Erythrocyte distribution width (RBC) [Ratio] 12.6 % 11.6-14.6 [facility] Erythrocyte distribution wid th standard deviationOrdered By: Renard Burgos on 04-08-2024 Erythrocyte distribution width (RBC) [Entitic vol] 42.4 fL 35.1-43.9 [facility] Hematocrit Auto (Bld) [Volum e fraction]Ordered By: Renard Burgos on 04-08-2024 Hematocrit (Bld) [Volume fraction] 41.2 % 40-54 [facility] Hemoglobin measurementOrdere d By: Renard Burgos on 04-08-2024 Hemoglobin (Bld) [Mass/Vol] 13.3 g/dL 13.0-16.5 [facility] Immature granulocytes/100 WB C Auto (Bld)Ordered By: Renard Burgos on 04-08-2024 Immature granulocytes/100 WBC (Bld) 0.200 % 0.0-0.9 [facility] Comment on above: IG% - Immature Granu locytes (promyelocytes, myelocytes and metamyelocytes) > 1% indicates that a LEFT SHIFT is Present. Lymphocytes Auto (Unsp spec) [#/Vol]Ordered By: Renard Burgos on 04-08-2024 Lymphocytes (Bld) [#/Vol] 2.27 10*3/uL 0.83-4.51 [facility] Lymphocytes/100 WBC Auto (Un sp spec)Ordered By: Renard Burgos on 04-08-2024 Lymphocytes/100 WBC (Bld) 26.0 % 19-41 [facility] MCV (mean corpuscular volume ) determinationOrdered By: Renard Burgos on 04-08-2024 MCV (RBC) [Entitic vol] 91.8 fL 80-94 [facility] Mean corpuscular hemoglobin (MCH) determinationOrdered By: Renard Burgos on 04-08-2024 MCH (RBC) [Entitic mass] 29.6 pg 27.0-32.0 [facility] Mean corpuscular hemoglobin concentration (MCHC) determinationOrdered By: Renard Burgos on 04-08-2024 MCHC (RBC) [Mass/Vol] 32.3 g/dL 32-36 [facility] Mean platelet volume determi nationOrdered By: Renard Burgos on 04-08-2024 Platelet mean volume (Bld) [Entitic vol] 10.8 fL 6.2-12.0 [facility] Monocyte percentageOrdered B y: Renard Burgos on 04-08-2024 Monocytes/100 WBC (Bld) 7.8 % 0-10 [facility] Neutrophil percentageOrdered By: Renard Burgos on 04-08-2024 Neutrophils/100 WBC (Bld) 64.9 % 47-70 [facility] Nucleated red blood cell per centageOrdered By: Renard Burgos on 04-08-2024 Nucleated RBC/100 WBC (Bld) [Ratio] 0 % 0-5 [facility] Platelet countOrdered By: Garrick Bhatt on 04-08-2024 Platelets (Bld) [#/Vol] 208 10*3/uL 150-450 [facility] RBC Auto (Bld) [#/Vol]Ordere d By: Renard Burgos on 04-08-2024 RBC (Bld) [#/Vol] 4.49 10*6/uL Low 4.6-6.2 [facility] White blood cell (WBC) count Ordered By: Renard Burgos on 04-08-2024 WBC (Bld) [#/Vol] 8.7 10*3/uL 4.4-11.0 [facility] Absolute neutrophil countOrd ered By: Renard Burgos on 04-01-2024 Neutrophils (Bld) [#/Vol] 7.1 10*3/uL 2.0-7.7 [facility] Basophil percentageOrdered B y: Renard Burgos on 04-01-2024 Basophils/100 WBC (Bld) 0.4 % 0-1 [facility] CBC W/Diff, Automatedon 12- Absolute Lymph 1.97 X10 3/uL Normal 0.83-4.51 [facility] Comment on above: Order Comment: 109-1 Performed By: #### L 100.0100 ####[facility] [address] [place], [address] Absolute Neut 7.1 X10 3/uL Normal 2.0-7.7 [facility] Comment on above: Order Comment: 109-1 Performed By: #### L 100.0100 ####[facility] [address] [place], [address] Basophils/100 WBC (Bld) 0.4 % Normal 0-1 [facility] Comment on above: Order Comment: 109-1 Performed By: #### L 100.0100 ####[facility] [address] [place], [address] Eosinophils/100 WBC (Bld) 0.4 % Normal 0-5 [facility] Comment on above: Order Comment: 109-1 Performed By: #### L 100.0100 ####[facility] [address] [place], [address] Erythrocyte distribution width (RBC) [Ratio] 12.6 % Normal 11.6-14.6 [facility] Comment on above: Order Comment: 109-1 Performed By: #### L 100.0100 ####[facility] [address] [place], [address] Hematocrit (Bld) [Volume fraction] 41.7 % Normal 40-54 [facility] Comment on above: Order Comment: 109-1 Performed By: #### L 100.0100 ####[facility] [address] [place], [address] Hemoglobin (Bld) [Mass/Vol] 13.6 g/dL Normal 13.0-16.5 [facility] Comment on above: Order Comment: 109-1 Performed By: #### L 100.0100 ####[facility] [address] [place], [address] IG% 0.300 Normal 0.0-0.9 [facility] Comment on above: Order Comment: 109-1 Result Comment: IG% - Immature Granulocytes (promyelocytes, myelocytes andmetamyelocytes) > 1% indicates that a LEFT SHIFT is Present. Performed By: #### L 100.0100 ####[facility] [address] [place], [address] Lymphocytes/100 WBC (Bld) 20.0 % Normal 19-41 [facility] Comment on above: Order Comment: 109-1 Performed By: #### L 100.0100 ####[facility] [address] [place], [address] MCH (RBC) [Entitic mass] 29.7 pg Normal 27.0-32.0 [facility] Comment on above: Order Comment: 109-1 Performed By: #### L 100.0100 ####[facility] [address] [place], [address] MCHC (RBC) [Mass/Vol] 32.6 g/dL Normal 32-36 [facility] Comment on above: Order Comment: 109-1 Performed By: #### L 100.0100 ####[facility] [address] [place], [address] MCV (RBC) [Entitic vol] 91.0 fL Normal 80-94 [facility] Comment on above: Order Comment: 109-1 Performed By: #### L 100.0100 ####[facility] [address] [place], [address] Monocytes/100 WBC (Bld) 7.1 % Normal 0-10 [facility] Comment on above: Order Comment: 109-1 Performed By: #### L 100.0100 ####[facility] [address] [place], [address] Neutrophils/100 WBC (Bld) 71.8 % High 47-70 [facility] Comment on above: Order Comment: 109-1 Performed By: #### L 100.0100 ####[facility] [address] [place], [address] Nucleated RBC (Bld) [#/Vol] 0 10*3/uL Normal 0-5 [facility] Comment on above: Order Comment: 109-1 Performed By: #### L 100.0100 ####[facility] [address] [place], [address] Platelet mean volume (Bld) [Entitic vol] 11.3 fL Normal 6.2-12.0 [facility] Comment on above: Order Comment: 109-1 Performed By: #### L 100.0100 ####[facility] [address] [place], [address] Platelets (Bld) [#/Vol] 195 10*3/uL Normal 150-450 [facility] Comment on above: Order Comment: 109-1 Performed By: #### L 100.0100 ####[facility] [address], [address] RBC (Bld) [#/Vol] 4.58 10*6/uL Low 4.6-6.2 [facility] Comment on above: Order Comment: 109-1 Performed By: #### L 100.0100 ####[facility] [address] [place], [address] RDW SD 41.2 fl Normal 35.1-43.9 [facility] Comment on above: Order Comment: 109-1 Performed By: #### L 100.0100 ####[facility] [address] [place], [address] WBC (Bld) [#/Vol] 9.8 10*3/uL Normal 4.4-11.0 [facility] Comment on above: Order Comment: 109-1 Performed By: #### L 100.0100 ####[facility] [address] [place], [address] Eosinophil percentageOrdered By: Renard Burgos on 04-01-2024 Eosinophils/100 WBC (Bld) 0.4 % 0-5 [facility] Erythrocyte distribution wid th ratioOrdered By: Renard Burgos on 04-01-2024 Erythrocyte distribution width (RBC) [Ratio] 12.6 % 11.6-14.6 [facility] Erythrocyte distribution wid th standard deviationOrdered By: Renard Burgos on 04-01-2024 Erythrocyte distribution width (RBC) [Entitic vol] 41.2 fL 35.1-43.9 [facility] Hematocrit Auto (Bld) [Volum e fraction]Ordered By: Renard Burgos on 04-01-2024 Hematocrit (Bld) [Volume fraction] 41.7 % 40-54 [facility] Hemoglobin measurementOrdere d By: Renard Burgos on 04-01-2024 Hemoglobin (Bld) [Mass/Vol] 13.6 g/dL 13.0-16.5 [facility] Immature granulocytes/100 WB C Auto (Bld)Ordered By: Renard Burgos on 04-01-2024 Immature granulocytes/100 WBC (Bld) 0.300 % 0.0-0.9 [facility] Comment on above: IG% - Immature Granu locytes (promyelocytes, myelocytes and metamyelocytes) > 1% indicates that a LEFT SHIFT is Present. Lymphocytes Auto (Unsp spec) [#/Vol]Ordered By: Renard Burgos on 04-01-2024 Lymphocytes (Bld) [#/Vol] 1.97 10*3/uL 0.83-4.51 [facility] Lymphocytes/100 WBC Auto (Un sp spec)Ordered By: Renard Burgos on 04-01-2024 Lymphocytes/100 WBC (Bld) 20.0 % 19-41 [facility] MCV (mean corpuscular volume ) determinationOrdered By: Renard Burgos on 04-01-2024 MCV (RBC) [Entitic vol] 91.0 fL 80-94 [facility] Mean corpuscular hemoglobin (MCH) determinationOrdered By: Renard Burgos on 04-01-2024 MCH (RBC) [Entitic mass] 29.7 pg 27.0-32.0 [facility] Mean corpuscular hemoglobin concentration (MCHC) determinationOrdered By: Renard Burgos on 04-01-2024 MCHC (RBC) [Mass/Vol] 32.6 g/dL 32-36 [facility] Mean platelet volume determi nationOrdered By: Renard Burgos on 04-01-2024 Platelet mean volume (Bld) [Entitic vol] 11.3 fL 6.2-12.0 [facility] Monocyte percentageOrdered B y: Renard Burgos on 04-01-2024 Monocytes/100 WBC (Bld) 7.1 % 0-10 [facility] Neutrophil percentageOrdered By: Renard Burgos on 04-01-2024 Neutrophils/100 WBC (Bld) 71.8 % High 47-70 [facility] Nucleated red blood cell per centageOrdered By: Renard Burgos on 04-01-2024 Nucleated RBC/100 WBC (Bld) [Ratio] 0 % 0-5 [facility] Platelet countOrdered By: Garrick Bhatt on 04-01-2024 Platelets (Bld) [#/Vol] 195 10*3/uL 150-450 [facility] RBC Auto (Bld) [#/Vol]Ordere d By: Renard Burgos on 04-01-2024 RBC (Bld) [#/Vol] 4.58 10*6/uL Low 4.6-6.2 [facility] White blood cell (WBC) count Ordered By: Renard Burgos on 04-01-2024 WBC (Bld) [#/Vol] 9.8 10*3/uL 4.4-11.0 [facility] Absolute neutrophil countOrd ered By: Renard Burgos on 03-25-2024 Neutrophils (Bld) [#/Vol] 5.4 10*3/uL 2.0-7.7 [facility] Basophil percentageOrdered B y: Renard Burgos on 03-25-2024 Basophils/100 WBC (Bld) 0.5 % 0-1 [facility] CBC W/Diff, Automatedon 03-02 Absolute Lymph 2.14 X10 3/uL Normal 0.83-4.51 [facility] Comment on above: Order Comment: 109-1 Performed By: #### L 100.0100 ####[facility] [address] [place], [address] Absolute Neut 5.4 X10 3/uL Normal 2.0-7.7 [facility] Comment on above: Order Comment: 109-1 Performed By: #### L 100.0100 ####[facility] [address] [place], [address] Basophils/100 WBC (Bld) 0.5 % Normal 0-1 [facility] Comment on above: Order Comment: 109-1 Performed By: #### L 100.0100 ####[facility] [address] [place], [address] Eosinophils/100 WBC (Bld) 0.7 % Normal 0-5 [facility] Comment on above: Order Comment: 109-1 Performed By: #### L 100.0100 ####[facility] [address] [place], [address] Erythrocyte distribution width (RBC) [Ratio] 12.7 % Normal 11.6-14.6 [facility] Comment on above: Order Comment: 109-1 Performed By: #### L 100.0100 ####[facility] [address] [place], [address] Hematocrit (Bld) [Volume fraction] 42.3 % Normal 40-54 [facility] Comment on above: Order Comment: 109-1 Performed By: #### L 100.0100 ####[facility] [address] [place], [address] Hemoglobin (Bld) [Mass/Vol] 13.7 g/dL Normal 13.0-16.5 [facility] Comment on above: Order Comment: 109-1 Performed By: #### L 100.0100 ####[facility] [address] [place], [address] IG% 0.500 Normal 0.0-0.9 [facility] Comment on above: Order Comment: 109-1 Result Comment: IG% - Immature Granulocytes (promyelocytes, myelocytes andmetamyelocytes) > 1% indicates that a LEFT SHIFT is Present. Performed By: #### L 100.0100 ####[facility] [address] [place], [address] Lymphocytes/100 WBC (Bld) 25.8 % Normal 19-41 [facility] Comment on above: Order Comment: 109-1 Performed By: #### L 100.0100 ####[facility] [address] [place], [address] MCH (RBC) [Entitic mass] 29.2 pg Normal 27.0-32.0 [facility] Comment on above: Order Comment: 109-1 Performed By: #### L 100.0100 ####[facility] [address] [place], [address] MCHC (RBC) [Mass/Vol] 32.4 g/dL Normal 32-36 [facility] Comment on above: Order Comment: 109-1 Performed By: #### L 100.0100 ####[facility] [address] [place], [address] MCV (RBC) [Entitic vol] 90.2 fL Normal 80-94 [facility] Comment on above: Order Comment: 109-1 Performed By: #### L 100.0100 ####[facility] [address] [place], [address] Monocytes/100 WBC (Bld) 8.0 % Normal 0-10 [facility] Comment on above: Order Comment: 109-1 Performed By: #### L 100.0100 ####[facility] [address] [place], [address] Neutrophils/100 WBC (Bld) 64.5 % Normal 47-70 [facility] Comment on above: Order Comment: 109-1 Performed By: #### L 100.0100 ####[facility] [address] [place], [address] Nucleated RBC (Bld) [#/Vol] 0 10*3/uL Normal 0-5 [facility] Comment on above: Order Comment: 109-1 Performed By: #### L 100.0100 ####[facility] [address] [place], [address] Platelet mean volume (Bld) [Entitic vol] 11.2 fL Normal 6.2-12.0 [facility] Comment on above: Order Comment: 109-1 Performed By: #### L 100.0100 ####[facility] [address] [place], [address] Platelets (Bld) [#/Vol] 204 10*3/uL Normal 150-450 [facility] Comment on above: Order Comment: 109-1 Performed By: #### L 100.0100 ####[facility] [address] [place], [address] RBC (Bld) [#/Vol] 4.69 10*6/uL Normal 4.6-6.2 [facility] Comment on above: Order Comment: 109-1 Performed By: #### L 100.0100 ####[facility] [address] [place], [address] RDW SD 41.8 fl Normal 35.1-43.9 [facility] Comment on above: Order Comment: 109-1 Performed By: #### L 100.0100 ####[facility] [address] [place], [address] WBC (Bld) [#/Vol] 8.3 10*3/uL Normal 4.4-11.0 [facility] Comment on above: Order Comment: 109-1 Performed By: #### L 100.0100 ####[facility] [address] [place], [address] Eosinophil percentageOrdered By: Renard Burgos on 03-25-2024 Eosinophils/100 WBC (Bld) 0.7 % 0-5 [facility] Erythrocyte distribution wid th ratioOrdered By: Renard Burgos on 03-25-2024 Erythrocyte distribution width (RBC) [Ratio] 12.7 % 11.6-14.6 [facility] Erythrocyte distribution wid th standard deviationOrdered By: Renard Burgos on 03-25-2024 Erythrocyte distribution width (RBC) [Entitic vol] 41.8 fL 35.1-43.9 [facility] Hematocrit Auto (Bld) [Volum e fraction]Ordered By: Renard Burgos on 03-25-2024 Hematocrit (Bld) [Volume fraction] 42.3 % 40-54 [facility] Hemoglobin measurementOrdere d By: Renard Burgos on 03-25-2024 Hemoglobin (Bld) [Mass/Vol] 13.7 g/dL 13.0-16.5 [facility] Immature granulocytes/100 WB C Auto (Bld)Ordered By: Renard Burgos on 03-25-2024 Immature granulocytes/100 WBC (Bld) 0.500 % 0.0-0.9 [facility] Comment on above: IG% - Immature Granu locytes (promyelocytes, myelocytes and metamyelocytes) > 1% indicates that a LEFT SHIFT is Present. Lymphocytes Auto (Unsp spec) [#/Vol]Ordered By: Renard Burgos on 03-25-2024 Lymphocytes (Bld) [#/Vol] 2.14 10*3/uL 0.83-4.51 [facility] Lymphocytes/100 WBC Auto (Un sp spec)Ordered By: Renard Burgos on 03-25-2024 Lymphocytes/100 WBC (Bld) 25.8 % 19-41 [facility] MCV (mean corpuscular volume ) determinationOrdered By: Renard Burgos on 03-25-2024 MCV (RBC) [Entitic vol] 90.2 fL 80-94 [facility] Mean corpuscular hemoglobin (MCH) determinationOrdered By: Renard Burgos on 03-25-2024 MCH (RBC) [Entitic mass] 29.2 pg 27.0-32.0 [facility] Mean corpuscular hemoglobin concentration (MCHC) determinationOrdered By: Renard Burgos on 03-25-2024 MCHC (RBC) [Mass/Vol] 32.4 g/dL 32-36 [facility] Mean platelet volume determi nationOrdered By: Renard Burgos on 03-25-2024 Platelet mean volume (Bld) [Entitic vol] 11.2 fL 6.2-12.0 [facility] Monocyte percentageOrdered B y: Renard Burgos on 03-25-2024 Monocytes/100 WBC (Bld) 8.0 % 0-10 [facility] Neutrophil percentageOrdered By: Renard Burgos on 03-25-2024 Neutrophils/100 WBC (Bld) 64.5 % 47-70 [facility] Nucleated red blood cell per centageOrdered By: Renard Burgos on 03-25-2024 Nucleated RBC/100 WBC (Bld) [Ratio] 0 % 0-5 [facility] Platelet countOrdered By: Garrick Bhatt on 03-25-2024 Platelets (Bld) [#/Vol] 204 10*3/uL 150-450 [facility] RBC Auto (Bld) [#/Vol]Ordere d By: Renard Burgos on 03-25-2024 RBC (Bld) [#/Vol] 4.69 10*6/uL 4.6-6.2 [facility] White blood cell (WBC) count Ordered By: Renard Burgos on 03-25-2024 WBC (Bld) [#/Vol] 8.3 10*3/uL 4.4-11.0 [facility] Absolute neutrophil countOrd ered By: Renard Burgos on 03-18-2024 Neutrophils (Bld) [#/Vol] 5.2 10*3/uL 2.0-7.7 [facility] Basophil percentageOrdered B y: Renard Burgos on 03-18-2024 Basophils/100 WBC (Bld) 0.6 % 0-1 [facility] CBC W/Diff, Automatedon 03-01 Absolute Lymph 2.23 X10 3/uL Normal 0.83-4.51 [facility] Comment on above: Order Comment: 109.1 Performed By: #### L 100.0100 ####[facility] [address] [place], [address] Absolute Neut 5.2 X10 3/uL Normal 2.0-7.7 [facility] Comment on above: Order Comment: 109.1 Performed By: #### L 100.0100 ####[facility] [address] [place], [address] Basophils/100 WBC (Bld) 0.6 % Normal 0-1 [facility] Comment on above: Order Comment: 109.1 Performed By: #### L 100.0100 ####[facility] [address] [place], [address] Eosinophils/100 WBC (Bld) 0.7 % Normal 0-5 [facility] Comment on above: Order Comment: 109.1 Performed By: #### L 100.0100 ####[facility] [address] [place], [address] Erythrocyte distribution width (RBC) [Ratio] 12.8 % Normal 11.6-14.6 [facility] Comment on above: Order Comment: 109.1 Performed By: #### L 100.0100 ####[facility] [address] [place], [address] Hematocrit (Bld) [Volume fraction] 42.0 % Normal 40-54 [facility] Comment on above: Order Comment: 109.1 Performed By: #### L 100.0100 ####[facility] [address] [place], [address] Hemoglobin (Bld) [Mass/Vol] 13.6 g/dL Normal 13.0-16.5 [facility] Comment on above: Order Comment: 109.1 Performed By: #### L 100.0100 ####[facility] [address] [place], [address] IG% 0.500 Normal 0.0-0.9 [facility] Comment on above: Order Comment: 109.1 Result Comment: IG% - Immature Granulocytes (promyelocytes, myelocytes andmetamyelocytes) > 1% indicates that a LEFT SHIFT is Present. Performed By: #### L 100.0100 ####[facility] [address] [place], [address] Lymphocytes/100 WBC (Bld) 27.0 % Normal 19-41 [facility] Comment on above: Order Comment: 109.1 Performed By: #### L 100.0100 ####[facility] [address] [place], [address] MCH (RBC) [Entitic mass] 29.5 pg Normal 27.0-32.0 [facility] Comment on above: Order Comment: 109.1 Performed By: #### L 100.0100 ####[facility] [address], [address] MCHC (RBC) [Mass/Vol] 32.4 g/dL Normal 32-36 [facility] Comment on above: Order Comment: 109.1 Performed By: #### L 100.0100 ####[facility] [address] [place], [address] MCV (RBC) [Entitic vol] 91.1 fL Normal 80-94 [facility] Comment on above: Order Comment: 109.1 Performed By: #### L 100.0100 ####[facility] [address] [place], [address] Monocytes/100 WBC (Bld) 8.5 % Normal 0-10 [facility] Comment on above: Order Comment: 109.1 Performed By: #### L 100.0100 ####[facility] [address] [place], [address] Neutrophils/100 WBC (Bld) 62.7 % Normal 47-70 [facility] Comment on above: Order Comment: 109.1 Performed By: #### L 100.0100 ####[facility] [address] [place], [address] Nucleated RBC (Bld) [#/Vol] 0 10*3/uL Normal 0-5 [facility] Comment on above: Order Comment: 109.1 Performed By: #### L 100.0100 ####[facility] [address] [place], [address] Platelet mean volume (Bld) [Entitic vol] 10.8 fL Normal 6.2-12.0 [facility] Comment on above: Order Comment: 109.1 Performed By: #### L 100.0100 ####[facility] [address] [place], [address] Platelets (Bld) [#/Vol] 211 10*3/uL Normal 150-450 [facility] Comment on above: Order Comment: 109.1 Performed By: #### L 100.0100 ####[facility] [address] [place], [address] RBC (Bld) [#/Vol] 4.61 10*6/uL Normal 4.6-6.2 [facility] Comment on above: Order Comment: 109.1 Performed By: #### L 100.0100 ####[facility] [address] [place], [address] RDW SD 42.3 fl Normal 35.1-43.9 [facility] Comment on above: Order Comment: 109.1 Performed By: #### L 100.0100 ####[facility] [address] [place], [address] WBC (Bld) [#/Vol] 8.3 10*3/uL Normal 4.4-11.0 [facility] Comment on above: Order Comment: 109.1 Performed By: #### L 100.0100 ####[facility] [address] [place], [address] Eosinophil percentageOrdered By: Renard Burgos on 03-18-2024 Eosinophils/100 WBC (Bld) 0.7 % 0-5 [facility] Erythrocyte distribution wid th ratioOrdered By: Renard Burgos on 03-18-2024 Erythrocyte distribution width (RBC) [Ratio] 12.8 % 11.6-14.6 [facility] Erythrocyte distribution wid th standard deviationOrdered By: Renard Burgos on 03-18-2024 Erythrocyte distribution width (RBC) [Entitic vol] 42.3 fL 35.1-43.9 [facility] Hematocrit Auto (Bld) [Volum e fraction]Ordered By: Renard Burgos on 03-18-2024 Hematocrit (Bld) [Volume fraction] 42.0 % 40-54 [facility] Hemoglobin measurementOrdere d By: Renard Burgos on 03-18-2024 Hemoglobin (Bld) [Mass/Vol] 13.6 g/dL 13.0-16.5 [facility] Immature granulocytes/100 WB C Auto (Bld)Ordered By: Renard Burgos on 03-18-2024 Immature granulocytes/100 WBC (Bld) 0.500 % 0.0-0.9 [facility] Comment on above: IG% - Immature Granu locytes (promyelocytes, myelocytes and metamyelocytes) > 1% indicates that a LEFT SHIFT is Present. Lymphocytes Auto (Unsp spec) [#/Vol]Ordered By: Renard Burgos on 03-18-2024 Lymphocytes (Bld) [#/Vol] 2.23 10*3/uL 0.83-4.51 [facility] Lymphocytes/100 WBC Auto (Un sp spec)Ordered By: Renard Burgos on 03-18-2024 Lymphocytes/100 WBC (Bld) 27.0 % 19-41 [facility] MCV (mean corpuscular volume ) determinationOrdered By: Renard Burgos on 03-18-2024 MCV (RBC) [Entitic vol] 91.1 fL 80-94 [facility] Mean corpuscular hemoglobin (MCH) determinationOrdered By: Renard Burgos on 03-18-2024 MCH (RBC) [Entitic mass] 29.5 pg 27.0-32.0 [facility] Mean corpuscular hemoglobin concentration (MCHC) determinationOrdered By: Renard Burgos on 03-18-2024 MCHC (RBC) [Mass/Vol] 32.4 g/dL 32-36 [facility] Mean platelet volume determi nationOrdered By: Renard Burgos on 03-18-2024 Platelet mean volume (Bld) [Entitic vol] 10.8 fL 6.2-12.0 [facility] Monocyte percentageOrdered B y: Renard Burgos on 03-18-2024 Monocytes/100 WBC (Bld) 8.5 % 0-10 [facility] Neutrophil percentageOrdered By: Renard Burgos on 03-18-2024 Neutrophils/100 WBC (Bld) 62.7 % 47-70 [facility] Nucleated red blood cell per centageOrdered By: Renard Burgos on 03-18-2024 Nucleated RBC/100 WBC (Bld) [Ratio] 0 % 0-5 [facility] Platelet countOrdered By: Garrick Bhatt on 03-18-2024 Platelets (Bld) [#/Vol] 211 10*3/uL 150-450 [facility] RBC Auto (Bld) [#/Vol]Ordere d By: Renard Burgos on 03-18-2024 RBC (Bld) [#/Vol] 4.61 10*6/uL 4.6-6.2 [facility] White blood cell (WBC) count Ordered By: Renard Burgos on 03-18-2024 WBC (Bld) [#/Vol] 8.3 10*3/uL 4.4-11.0 [facility] Absolute neutrophil countOrd ered By: Renard Burgos on 03-11-2024 Neutrophils (Bld) [#/Vol] 6.2 10*3/uL 2.0-7.7 [facility] Basophil percentageOrdered B y: Renard Burgos on 03-11-2024 Basophils/100 WBC (Bld) 0.5 % 0-1 [facility] Eosinophil percentageOrdered By: Renard Burgos on 03-11-2024 Eosinophils/100 WBC (Bld) 0.6 % 0-5 [facility] Erythrocyte distribution wid th ratioOrdered By: Renard Burgos on 03-11-2024 Erythrocyte distribution width (RBC) [Ratio] 12.7 % 11.6-14.6 [facility] Erythrocyte distribution wid th standard deviationOrdered By: Renard Burgos on 03-11-2024 Erythrocyte distribution width (RBC) [Entitic vol] 41.5 fL 35.1-43.9 [facility] Hematocrit Auto (Bld) [Volum e fraction]Ordered By: Renard Burgos on 03-11-2024 Hematocrit (Bld) [Volume fraction] 41.5 % 40-54 [facility] Hemoglobin measurementOrdere d By: Renard Burgos on 03-11-2024 Hemoglobin (Bld) [Mass/Vol] 13.8 g/dL 13.0-16.5 [facility] Immature granulocytes/100 WB C Auto (Bld)Ordered By: Renard Burgos on 03-11-2024 Immature granulocytes/100 WBC (Bld) 0.500 % 0.0-0.9 [facility] Comment on above: IG% - Immature Granu locytes (promyelocytes, myelocytes and metamyelocytes) > 1% indicates that a LEFT SHIFT is Present. Lymphocytes Auto (Unsp spec) [#/Vol]Ordered By: Renard Burgos on 03-11-2024 Lymphocytes (Bld) [#/Vol] 2.50 10*3/uL 0.83-4.51 [facility] Lymphocytes/100 WBC Auto (Un sp spec)Ordered By: Renard Burgos on 03-11-2024 Lymphocytes/100 WBC (Bld) 25.6 % 19-41 [facility] MCV (mean corpuscular volume ) determinationOrdered By: Renard Burgos on 03-11-2024 MCV (RBC) [Entitic vol] 91.4 fL 80-94 [facility] Mean corpuscular hemoglobin (MCH) determinationOrdered By: Renard Burgos on 03-11-2024 MCH (RBC) [Entitic mass] 30.4 pg 27.0-32.0 [facility] Mean corpuscular hemoglobin concentration (MCHC) determinationOrdered By: Renard Burgos on 03-11-2024 MCHC (RBC) [Mass/Vol] 33.3 g/dL 32-36 [facility] Mean platelet volume determi nationOrdered By: Renard Burgos on 03-11-2024 Platelet mean volume (Bld) [Entitic vol] 11.0 fL 6.2-12.0 [facility] Monocyte percentageOrdered B y: Renard Burgos on 03-11-2024 Monocytes/100 WBC (Bld) 9.0 % 0-10 [facility] Neutrophil percentageOrdered By: Renard Burgos on 03-11-2024 Neutrophils/100 WBC (Bld) 63.8 % 47-70 [facility] Nucleated red blood cell per centageOrdered By: Renard Burgos on 03-11-2024 Nucleated RBC/100 WBC (Bld) [Ratio] 0 % 0-5 [facility] Platelet countOrdered By: Garrick Bhatt on 03-11-2024 Platelets (Bld) [#/Vol] 220 10*3/uL 150-450 [facility] RBC Auto (Bld) [#/Vol]Ordere d By: Renard Burgos on 03-11-2024 RBC (Bld) [#/Vol] 4.54 10*6/uL Low 4.6-6.2 [facility] White blood cell (WBC) count Ordered By: Renard Burgos on 03-11-2024 WBC (Bld) [#/Vol] 9.8 10*3/uL 4.4-11.0 [facility] Progress Noteon 11-22-2023 Progress Note Speech-Language Pathology SPEECH LANGUAGE PATHOLOGY [facility] Modified Barium Swallow Study [...] despite effort. 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 Frequency: Per treating CASTING OPERATOR HELPER Barriers: large osteophytes, bridging with anterior [...] Prior MBSS?: No, unable to locate in [facility] Current Diet: Puree diet with ?liquid (no information from [employer]) Textures tested: - thin liquid, (cup edge) - mildly thick liquid, (cup edge) - puree, (teaspoon) Patient position: lateral Past Medical History: Past Medical History: Diagnosis Date TREVER (acute kidney injury) (CMS/HCC) ([facility]) Alcohol abuse 07/08/2018 Anxiety C1 spinal cord injury ([facility]/HCC) ([facility]) Depression Fall 06/2018 Schizophrenia ([facility]) Past Surgical History: Past Surgical History: Procedure Laterality Date CERVICAL FUSION 07/09/2014 C2-6 cervical fusion GASTROSTOMY TUBE PLACEMENT 07/13/2018 TRACHEOSTOMY 07/13/2018 Admission Diagnosis: Patient Active Problem List Diagnosis Date Noted Respiratory syncytial virus (RSV) 03/22/2021 Hypoxia 03/19/2021 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[facility]/HCC) ([facility]) 08/16/2018 Chronic latent schizophrenia ([facility]) 08/15/2018 Prolonged Q-T interval on ECG 08/15/2018 Abdominal wall abscess 08/15/2018 Central cord syndrome ([facility]/HCC) ([facility]) 08/15/2018 Respiratory [...] from 2019. Pt is currently decannulated. H/o [employer] cervical fusion C2-C6. Noted very large connective [...] posterior spill (more content not included)... Normal [facility] RF videography Hypopharynx a nd Esophagus Views for swallowing function W speech and W barium contrast Rosalino 11-22-2023 Abnormal findings as described above. Please refer to the speech pathologist 's report for additional details and recommendations. Report Dictated on Electronically Signed By: Nir Cancino MD Electronically Signed Date/Time: 11/22/2023 1:57 PM [facility] RADIOLOGY SYSTEM [facility] 1955 [id number] Exam Date/Time: 11/22/2023 12:53 Procedure: FL MODIFIED [...] not visualized in this exam for evaluation. [facility] Nir Cancino MD - 11/22/2023 Patient Name: [facility] : 1955 [id number] Exam Date/Time: 11/22/2023 12:53 Procedure: FL MODIFIED [...] Date/Time: 11/22/2023 1:57 PM EDT [facility] Radiology Study observation (narrative) [facility] alth RF videography Hypopharynx a nd Esophagus Views for swallowing function W speech and W barium contrast POOrdered By: Nir Cancino on 11-22-2023 [facility] Work Phone: CBC W Auto Differential pane l (Bld)on 10-02-2023 Basophils (Bld) [#/Vol] 0.0 10*3/uL 0.0 - 0.2 10*3/uL [facility] Basophils/100 WBC (Bld) 0.3 % 0.0 - 2.0 % [facility] Eosinophils (Bld) [#/Vol] 0.0 10*3/uL 0.0 - 0.5 10*3/uL [facility] Eosinophils/100 WBC (Bld) 0.0 % 0.0 - 6.0 % [facility] Erythrocyte distribution width (RBC) [Ratio] 13.0 % 11.5 - 15.0 % [facility] Hematocrit (Bld) [Volume fraction] 37.8 % Low 40.0 - 52.0 % [facility] Hemoglobin (Bld) [Mass/Vol] 13.0 g/dL 13.0 - 18.0 g/dL [facility] Immature granulocytes (Bld) [#/Vol] 0.1 10*3/uL High NINF - 0.1 10*3/uL [facility] Immature granulocytes/100 WBC (Bld) 0.5 % 0.0 - 2.0 % [facility] Interpretation and review of laboratory results Abnormal [facility] Lymphocytes (Bld) [#/Vol] 0.9 10*3/uL Low 1.0 - 4.3 10*3/uL [facility] Lymphocytes/100 WBC (Bld) 8.4 % Low 15.0 - 45.0 % [facility] MCH (RBC) [Entitic mass] 30.3 pg 26.0 - 34.0 pg [facility] MCHC (RBC) [Mass/Vol] 34.4 % 30.5 - 36.0 % [facility] MCV (RBC) [Entitic vol] 88.1 fL 77.0 - 99.0 fL [facility] Monocytes (Bld) [#/Vol] 0.9 10*3/uL 0.0 - 0.9 10*3/uL [facility] Monocytes/100 WBC (Bld) 8.2 % 5.0 - 13.0 % [facility] Neutrophils (Bld) [#/Vol] 8.9 10*3/uL High 1.8 - 7.5 10*3/uL [facility] Neutrophils/100 WBC (Bld) 82.6 % High 38.0 - 82.0 % [facility] Nucleated RBC/100 WBC (Bld) [Ratio] 0.0 % [facility] Platelet mean volume (Bld) [Entitic vol] 10.7 fL 9.0 - 12.7 fL [facility] Platelets (Bld) [#/Vol] 148 10*3/uL 140 - 440 10*3/uL [facility] RBC (Bld) [#/Vol] 4.29 10*6/uL Low 4.40 - 5.9 0 10*6/uL [facility] WBC (Bld) [#/Vol] 10.7 10*3/uL 3.6 - 10.7 10*3/uL [facility] CBC WITH AUTO DIFFERENTIALon 10-02-2023 Basophils (Bld) [#/Vol] 0.0 10*3/uL Normal 0.0-0.2 [facility] Comment on above: Performed By: #### L [id number] #### Electrical Maintenance Technician: CYNDI LILLY ([id number]) [facility] ([facility]) [address] Basophils/100 WBC (Bld) 0.3 % Normal 0.0-2.0 [facility] Comment on above: Performed By: #### L [id number] #### Electrical Maintenance Technician: CYNDI LILLY ([id number]) [facility] ([facility]) [address] [place] [address] Eosinophils (Bld) [#/Vol] 0.0 10*3/uL Normal 0.0-0.5 [facility] Comment on above: Performed By: #### L [id number] #### Electrical Maintenance Technician: CYNDI LILLY ([id number]) [facility] ([facility]) [address] Eosinophils/100 WBC (Bld) 0.0 % Normal 0.0-6.0 [facility] Comment on above: Performed By: #### L [id number] #### Electrical Maintenance Technician: CYNDI LILLY ([id number]) [facility] ([facility]) [address] Erythrocyte distribution width (RBC) [Ratio] 13.0 % Normal 11.5-15.0 [facility] Comment on above: Performed By: #### L [id number] #### Electrical Maintenance Technician: CYNDI LILLY ([id number]) [facility] [address] Hematocrit (Bld) [Volume fraction] 37.8 % Low 40.0-52.0 [facility] Comment on above: Performed By: #### L [id number] #### Electrical Maintenance Technician: CYNDI LILLY ([id number]) [facility] ([facility]) [address] Hemoglobin (Bld) [Mass/Vol] 13.0 g/dL Normal 13.0-18.0 [facility] Comment on above: Performed By: #### L [id number] #### Electrical Maintenance Technician: CYNDI LILLY ([id number]) [facility] ([facility]) [address] IMMATURE GRANS % 0.5 % Normal 0.0-2.0 [facility] Comment on above: Performed By: #### L [id number] #### Electrical Maintenance Technician: CYNDI LILLY ([id number]) [facility] ([facility]) [address] IMMATURE GRANS ABSOLUTE 0.1 10*3/uL High <0.1 [facility] Comment on above: Performed By: #### L [id number] #### Electrical Maintenance Technician: CYNDI LILLY ([id number]) [facility] ([facility]) [address] Lymphocytes (Bld) [#/Vol] 0.9 10*3/uL Low 1.0-4.3 [facility] Comment on above: Performed By: #### L [id number] #### Electrical Maintenance Technician: CYNDI LILLY ([id number]) [facility] ([facility]) [address] [place] [address] [place] Lymphocytes/100 WBC (Bld) 8.4 % Low 15.0-45.0 [facility] Comment on above: Performed By: #### L [id number] #### Electrical Maintenance Technician: CYNDI DRIVERRADHA ([id number]) [facility] ([facility]) [address] MCH (RBC) [Entitic mass] 30.3 pg Normal 26.0-34.0 [facility] Comment on above: Performed By: #### L [id number] #### Electrical Maintenance Technician: CYNDI DRIVERRADHA ([id number]) [facility] ([facility]) [address] MCHC 34.4 % Normal 30.5-36.0 [facility] Comment on above: Performed By: #### L [id number] #### Electrical Maintenance Technician: CYNDI DRIVERRADHA ([id number]) [facility] ([facility]) [address] MCV (RBC) [Entitic vol] 88.1 fL Normal 77.0-99.0 [facility] Comment on above: Performed By: #### L [id number] #### Electrical Maintenance Technician: CYNDI LILLY ([id number]) [facility] ([facility]) [address] Monocytes (Bld) [#/Vol] 0.9 10*3/uL Normal 0.0-0.9 [facility] Comment on above: Performed By: #### L [id number] #### Electrical Maintenance Technician: CYNDI LILLY ([id number]) [facility] ([facility]) [address] [place] [address] [place] Monocytes/100 WBC (Bld) 8.2 % Normal 5.0-13.0 [facility] Comment on above: Performed By: #### L [id number] #### Electrical Maintenance Technician: CYNDI LILLY ([id number]) [facility] ([facility]) [address] NEUTROPHILS ABSOLUTE 8.9 10*3/uL High 1.8-7.5 [facility] Comment on above: Performed By: #### L [id number] #### Electrical Maintenance Technician: CYNDI LILLY ([id number]) [facility] [place] ([facility]) [address] Neutrophils/100 WBC (Bld) 82.6 % High 38.0-82.0 [facility] Comment on above: Performed By: #### L [id number] #### Electrical Maintenance Technician: CYNDI LILLY ([id number]) [facility] [place] ([facility]) [address] NRBC 0.0 /100 WBCs Normal 0.0-2.0 [facility] Comment on above: Performed By: #### L [id number] #### Electrical Maintenance Technician: CYNDI LILLY ([id number]) [facility] ([facility]) [address] Platelet mean volume (Bld) [Entitic vol] 10.7 fL Normal 9.0-12.7 [facility] Comment on above: Performed By: #### L [id number] #### Electrical Maintenance Technician: CYNDI LILLY ([id number]) [facility] [place] ([facility]) [address] [place] [address] [place] Platelets (Bld) [#/Vol] 148 10*3/uL Normal 140-440 [facility] Comment on above: Performed By: #### L [id number] #### Electrical Maintenance Technician: CYNDI LILLY ([id number]) [facility] [place] ([facility]) [address] [place] [address] [place] RBC (Bld) [#/Vol] 4.29 10*6/uL Low 4.40-5.90 [facility] Comment on above: Performed By: #### L [id number] #### Electrical Maintenance Technician: CYNDI LILLY ([id number]) [facility] [place] ([facility]) [address] [place] [address] [place] WBC (Bld) [#/Vol] 10.7 10*3/uL Normal 3.6-10.7 [facility] Comment on above: Performed By: #### L [id number] #### Electrical Maintenance Technician: CYNDI LILLY ([id number]) [facility] [place] ([facility]) [address] COMPREHENSIVE METABOLIC PANE Reji 10-02-2023 Albumin [Mass/Vol] 3.7 g/dL Normal 3.5-5.0 [facility] Comment on above: Performed By: #### L [id number], [id number] ####Electrical Maintenance Technician: CYNDI LILLY ([id number])[facility]USA [place] ([facility])[address] ALP [Catalytic activity/Vol] 78 U/L Normal 38-126 [facility] Comment on above: Performed By: #### L [id number], [id number] ####Electrical Maintenance Technician: CYNDI LILLY ([id number])[facility] [place] ([facility])[address] ALT [Catalytic activity/Vol] 21 U/L Normal 0-49 [facility] Comment on above: Performed By: #### L [id number], [id number] ####Electrical Maintenance Technician: CYNDI LILLY ([id number])[facility] [place] ([facility])[address] Anion gap [Moles/Vol] 10 mmol/L Normal 3-13 [facility] Comment on above: Performed By: #### L [id number], [id number] ####Electrical Maintenance Technician: CYNDI LILLY ([id number])[facility] [place] ([facility])[address] AST [Catalytic activity/Vol] 29 U/L Normal 15-46 [facility] Comment on above: Performed By: #### L AB17, [id number] ####Electrical Maintenance Technician: CYNDI LILLY ([id number])[facility] [place] ([facility])[address] Bilirubin [Mass/Vol] 1.1 mg/dL Normal 0.2-1.3 [facility] Comment on above: Performed By: #### Alban AB17, [id number] ####Electrical Maintenance Technician: CYNDI LILLY ([id number])[facility] [place] ([facility])[address] Calcium [Mass/Vol] 7.8 mg/dL Low 8.4-10.4 [facility] Comment on above: Performed By: #### L AB17, [id number] ####Electrical Maintenance Technician: CYNDI LILLY ([id number])[facility] ([facility])[address] Chloride [Moles/Vol] 102 mmol/L Normal 98-107 [facility] Comment on above: Performed By: #### Alban AB17, [id number] ####Electrical Maintenance Technician: CYNDI LILLY ([id number])[facility] ([facility])[address] CO2 [Moles/Vol] 23 mmol/L Normal 22-30 [facility] Comment on above: Performed By: #### Alban AB17, [id number] ####Electrical Maintenance Technician: CYNDI LILLY ([id number])[facility] ([facility] Creatinine [Mass/Vol] 0.58 mg/dL Low 0.66-1.25 [facility] Comment on above: Performed By: #### L AB17, [id number] ####Electrical Maintenance Technician: CYNDI LILLY ([id number])[facility] ([facility])[address] GLOMERULAR FILTRATION RATE ML/MIN/1.73 SQ M.PREDICTED >90.0 Normal >60.0 [facility] Comment on above: Result Comment: Calc ulation based on the Chronic Kidney Disease Epidemiology Collaboration (CKD-EPI) equation refit without adjustment for race Performed By: #### L AB17, [id number] ####Electrical Maintenance Technician: CYNDI LILLY ([id number])[facility]AMP[facility]luy [place] ([facility])[address] Glucose [Mass/Vol] 111 mg/dL High 70-100 [facility] Comment on above: Performed By: #### L AB17, [id number] ####Electrical Maintenance Technician: CYNDI LILLY ([id number])[facility] ([facility])[address] Potassium [Moles/Vol] 4.0 mmol/L Normal 3.5-5.1 [facility] Comment on above: Performed By: #### L AB17, [id number] ####Electrical Maintenance Technician: CYNDI LILLY ([id number])[facility] ([facility])[address] Protein [Mass/Vol] 6.5 g/dL Normal 6.3-8.2 [facility] Comment on above: Performed By: #### L AB17, [id number] ####Electrical Maintenance Technician: CYNDI LILLY ([id number])[facility] ([facility])[address] Sodium [Moles/Vol] 135 mmol/L Normal 135-145 [facility] Comment on above: Performed By: #### L AB17, [id number] ####Electrical Maintenance Technician: CYNDI LILLY ([id number])[facility] ([facility])[address] Urea nitrogen [Mass/Vol] 18 mg/dL Normal 9-20 [facility] Comment on above: Performed By: #### L AB17, [id number] ####Electrical Maintenance Technician: CYNDI LILLY ([id number])[facility] ([facility])[address] HEAD WO IV CONTRASTon CT HEAD WO IV CONTRAST Patient Name: KATHYA YU : 1955 Exam Date/Time: 10/02/2023 11:03 Procedure: CT HEAD WO IV CONTRAST Ordering Provider: TOLEDO AMY Reason For Exam: Neuro deficit, acute, stroke suspected EXAMINATION: CT HEAD WO IV CONTRAST HISTORY: Neuro deficit, acute, stroke suspected - - - - - [id number] - - - - TECHNIQUE: CT head [...] has seen him for that day, shift engineer did not report any problems. EMS states [...] has no complaints at this time. Normal [facility] CT Head WO contraston [address] evidence of an acute intracranial abnormality. Report Dictated on Electronically Signed By: Maria Eugenia Ruiz MD Electronically Signed Date/Time: 10/02/2023 11:09 AM EDT [facility] [employer] Patient Name: KATHYA HOOPER : 1955 Exam Date/Time: 10/02/2023 11:03 Procedure: CT HEAD WO IV CONTRAST Ordering Provider: TOLEDO AMY Reason For Exam: Neuro deficit, acute, stroke suspected EXAMINATION: CT HEAD WO IV CONTRAST HISTORY: Neuro deficit, acute, stroke suspected - - - - - [id number] - - - - TECHNIQUE: CT head [...] stroke suspected - - - - - [id number] - - - - TECHNIQUE: CT head [...] Electronically Signed Date/Time: 10/02/2023 11:09 AM EDT [facility] Radiology Study observation (narrative) [facility] He alth CT Head WO contrastOrdered B y: Maria Eugenia Joseph on 10-02-2023 [facility] [employer] Work Phone: Comprehensive metabolic 1998 panelon 10-02-2023 Albumin [Mass/Vol] 3.7 g/dL 3.5 - 5.0 g/dL [facility] ALP [Catalytic activity/Vol] 78 U/L 38 - 126 U/L [facility] ALT [Catalytic activity/Vol] 21 U/L 0 - 49 U/L [facility] Anion gap [Moles/Vol] 10 mmol/L 3 - 13 mmol/L [facility] AST [Catalytic activity/Vol] 29 U/L 15 - 46 U/L [facility] Bilirubin [Mass/Vol] 1.1 mg/dL 0.2 - 1 .3 mg/dL [facility] Calcium [Mass/Vol] 7.8 mg/dL Low 8.4 - 10. 4 mg/dL [facility] Chloride [Moles/Vol] 102 mmol/L 98 - 10 7 mmol/L [facility] CO2 [Moles/Vol] 23 mmol/L 22 - 30 mmol/L [facility] Creatinine [Mass/Vol] 0.58 mg/dL Low 0.66 - 1.25 mg/dL [facility] GFR/1.73 sq M.predicted MDRD (S/P/Bld) [Vol rate/Area] - PINF [facility] Comment on above: Calculation based on the Chronic Kidney Disease Epidemiology Collaboration (CKD-EPI) equation refit without adjustment for race Glucose [Mass/Vol] 111 mg/dL High 70 - 100 mg/dL [facility] Interpretation and review of laboratory results Abnormal [facility] Potassium [Moles/Vol] 4.0 mmol/L 3.5 - 5.1 mmol/L [facility] Protein [Mass/Vol] 6.5 g/dL 6.3 - 8.2 g/dL [facility] Sodium [Moles/Vol] 135 mmol/L 135 - 145 mmol/L [facility] Urea nitrogen [Mass/Vol] 18 mg/dL 9 - 20 mg/dL [facility] ECG 12-LEADon 10-02-2023 ECG 12-LEAD IMPRESSION: Sinus tachycardia Left bundle branch block ST elevation secondary to IVCD Electronically Signed On 10-02-2023 12:40:15 EDT by Fei Farooq [facility] ED Nursing Noteon 10-02-2023 ED Nursing Note [facility] at bedside at this time Mami Lantigua RN 10/02/23 1427 [facility] ED Nursing Note This RN gave report to Marnie at [facility] at this time Mami Lantigua RN 10/02/23 1358 [facility] ED Nursing Note This RN went to evaluate patient, was on 2L o2 and does not wear at baseline, plan is dc, this RN turned o2 off to trial patient, spo2 monitor on Mami Lantigua RN 10/02/23 1325 [facility] ED Nursing Note Pt to ct via cart Eloisa Alfaro RN 10/02/23 1043 [facility] ED Nursing Note Pt was brought in vi [facility] from [facility] for Left sided facial droop. Per EMS nurse is new and does not know patient very well but he is A&O x 2 at baseline. Per EMS the nurse states it was 20 mins ago. Contacted nurse that was caring for him and she states that was the first time she has seen him for that day, shift engineer did not report any problems. EMS states [...] facility. Hx of schizophrenia. BS 131. Normal [facility] ED Provider Noteon 4 ED Provider Note [facility] ED eMERGENCY dEPARTMENT eNCOUnter Pt Name: [...] History: Diagnosis Date TREVER (acute kidney injury) ([facility]) ([facility]) Alcohol abuse 07/08/2018 Anxiety C1 spinal cord injury ([facility]) [facility] [...] EmergencyPhysician): Interpret (more content not included)... Normal [facility] ED Provider Note Emergency Department Encounter [facility] ED Patient: Kathya Hooper : 1955 [...] are mis-transcribed.) Fei Farooq MD Acute Care [facility] Fei Farooq MD 10/02/23 1129 Normal [facility] Laboratory - Chemistry and C hemistry - challengeon 10-02-2023 Troponin I.cardiac [Mass/Vol] ng/mL NINF - 0.034 ng/mL [facility] Laboratory - Coagulationon 0 10-02-2023 aPTT Coag (PPP) [Time] 29.6 s 20.0 - 30.5 s [facility] INR Coag (PPP) [Relative time] 1.1 {INR} 0.9 - 1.1 [facility] Comment on above: Recommended Anticoag [...] [Time] 11.6 s 9.0 - 12.0 s [facility] No Panel Informationon 10-01 Heart Rate 103 bpm [facility] P [place] 48 degrees [facility] [place] Interval 172 ms [facility] QRS [place] -38 degrees [facility] QRSD Interval 159 ms [facility] Healt h QT Interval 405 ms [facility] QTC Interval 532 ms [facility] T Wave [place] 109 degrees [facility] Sinus tachycardia Left bundle branch block ST elevation secondary to IVCD Electronically Signed On 10-02-2023 12:40:15 EDT by Fei Farooq Fei Lopez MD - 10/02/2023 IMPRESSION: Sinus tachycardia Left bundle branch block ST elevation secondary to IVCD Electronically Signed On 10-02-2023 12:40:15 EDT by Fei Farooq [facility] Interpretation and review of laboratory results Normal [facility] PROTIME AND APTTon aPTT Coag (Bld) [Time] 29.6 s Normal 20.0-30.5 [facility] Comment on above: Performed By: #### L [id number] ####Electrical Maintenance Technician: CYNDI LILLY ([id number])[facility] ([facility])[address] [place] [address] INR Coag (PPP) [Relative time] 1.1 {INR} Normal 0.9-1.1 [facility] [...] prevent Myocardial Infarction Performed By: #### L [id number] ####Electrical Maintenance Technician: CYNDI LILLY ([id number])[facility] ([facility])[address] [place] [address] PT Coag (PPP) [Time] 11.6 s Normal 9.0-12.0 [facility] Comment on above: Performed By: #### L [id number] ####Electrical Maintenance Technician: CYNDI LILLY ([id number])[facility] ([facility])[address] [place] [address] TROPONIN, WITH SERIAL REFLEX on 10-02-2023 Troponin I.cardiac [Mass/Vol] ng/mL Normal <0.034 [facility] Comment on above: Result Comment: SHARON Stevens COMMENTS: Patients with high levels of Biotin oral intake (ie >5 mg/day) may have falsely decreased Troponin levels. Performed By: #### L AB17, [id number] ####Electrical Maintenance Technician: CYNDI LILLY ([id number])[facility] [place] ([facility])[address] [place] [address] Troponin I.cardiac [Mass/Vol ]on 10-02-2023 Interpretation and review of laboratory results Normal [facility] Patients with high levels of Biotin oral intake (ie >5 mg/day) may have falsely decreased Troponin levels. [facility] XR Chest Single viewon 10-01 No acute cardiopulmonary disease. Report Dictated on Electronically Signed By: Maria Eugenia Ruiz MD Electronically Signed Date/Time: 10/02/2023 11:06 AM EDT [facility] Patient Name: KATHYA HOOPER : [...] spine and shoulders. No acute osseous findings. [facility] Maria Eugenia Ruiz MD - 10/02/2023 Patient [...] Electronically Signed Date/Time: 10/02/2023 11:06 AM EDT [facility] Radiology Study observation (narrative) [facility] Absolute lymphocyte countOrd ered By: Renard Burgos on 08-07-2023 Lymphocytes Auto (Unsp spec) [#/Vol] 2.23 10*3/uL 0.83-4.51 [facility] Automated lymphocyte count a s percentage of total leukocytesOrdered By: Renard Burgos on 08-07-2023 Lymphocytes/100 WBC Auto (Unsp spec) 23.9 % 19-41 [facility] Basophil percentageOrdered B y: Renard Burgos on 08-07-2023 Basophils/100 WBC (Bld) 0.4 % 0-1 [facility] Eosinophils/100 WBC (Bld) 0.4 % 0-5 [facility] Hemoglobin (Bld) [Mass/Vol] 13.9 g/dL 13.0-16.5 [facility] Monocytes/100 WBC (Bld) 8.0 % 0-10 [facility] Neutrophils (Bld) [#/Vol] 6.2 10*3/uL 2.0-7.7 [facility] Neutrophils/100 WBC (Bld) 66.9 % 47-70 [facility] WBC (Bld) [#/Vol] 9.3 10*3/uL 4.4-11.0 [facility] Determination of erythrocyte mean corpuscular volume (MCV)Ordered By: Renard Burgos on 08-07-2023 MCV (RBC) [Entitic vol] 90.0 fL 80-94 [facility] Erythrocyte distribution wid th ratioOrdered By: Renard Burgos on 08-07-2023 Erythrocyte distribution width (RBC) [Ratio] 13.0 % 11.6-14.6 [facility] Erythrocyte distribution wid th standard deviationOrdered By: Renard Burgos on 08-07-2023 Erythrocyte distribution width (RBC) [Entitic vol] 42.5 fL 35.1-43.9 [facility] Hematocrit Auto (Bld) [Volum e fraction]Ordered By: Renard Burgos on 08-07-2023 Hematocrit (Bld) [Volume fraction] 42.5 % 40-54 [facility] Immature granulocytes/100 WB C Auto (Bld)Ordered By: Renard Burgos on 08-07-2023 Immature granulocytes/100 WBC (Bld) 0.400 % 0.0-0.9 [facility] Comment on above: IG% - Immature Granu locytes (promyelocytes, myelocytes and metamyelocytes) > 1% indicates that a LEFT SHIFT is Present. Laboratory - Hematology and Cell countsOrdered By: Renard Burgos on 08-07-2023 MCH (RBC) [Entitic mass] 29.4 pg 27.0-32.0 [facility] MCHC (RBC) [Mass/Vol] 32.7 g/dL 32-36 [facility] Nucleated RBC/100 WBC (Bld) [Ratio] 0 % 0-5 [facility] Platelet mean volume (Bld) [Entitic vol] 10.7 fL 6.2-12.0 [facility] Platelets (Bld) [#/Vol] 210 10*3/uL 150-450 [facility] RBC Auto (Bld) [#/Vol]Ordere d By: Renard Burgos on 08-07-2023 RBC (Bld) [#/Vol] 4.72 10*6/uL 4.6-6.2 [facility] Absolute lymphocyte countOrd ered By: Renard Burgos on 07-31-2023 Lymphocytes Auto (Unsp spec) [#/Vol] 2.04 10*3/uL 0.83-4.51 [facility] Automated lymphocyte count a s percentage of total leukocytesOrdered By: Renard Burgos on 07-31-2023 Lymphocytes/100 WBC Auto (Unsp spec) 24.2 % 19-41 [facility] Basophil percentageOrdered B y: Renard Burgos on 07-31-2023 Basophils/100 WBC (Bld) 0.6 % 0-1 [facility] Eosinophils/100 WBC (Bld) 0.6 % 0-5 [facility] Hemoglobin (Bld) [Mass/Vol] 13.9 g/dL 13.0-16.5 [facility] Monocytes/100 WBC (Bld) 8.5 % 0-10 [facility] Neutrophils (Bld) [#/Vol] 5.5 10*3/uL 2.0-7.7 [facility] Neutrophils/100 WBC (Bld) 65.7 % 47-70 [facility] WBC (Bld) [#/Vol] 8.4 10*3/uL 4.4-11.0 [facility] Determination of erythrocyte mean corpuscular volume (MCV)Ordered By: Renard Burgos on 07-31-2023 MCV (RBC) [Entitic vol] 89.7 fL 80-94 [facility] Erythrocyte distribution wid th ratioOrdered By: Renard Burgos on 07-31-2023 Erythrocyte distribution width (RBC) [Ratio] 12.8 % 11.6-14.6 [facility] Erythrocyte distribution wid th standard deviationOrdered By: Renard Burgos on 07-31-2023 Erythrocyte distribution width (RBC) [Entitic vol] 42.2 fL 35.1-43.9 [facility] Hematocrit Auto (Bld) [Volum e fraction]Ordered By: Renard Burgos on 07-31-2023 Hematocrit (Bld) [Volume fraction] 41.7 % 40-54 [facility] Immature granulocytes/100 WB C Auto (Bld)Ordered By: Renard Burgos on 07-31-2023 Immature granulocytes/100 WBC (Bld) 0.400 % 0.0-0.9 [facility] Comment on above: IG% - Immature Granu locytes (promyelocytes, myelocytes and metamyelocytes) > 1% indicates that a LEFT SHIFT is Present. Laboratory - Hematology and Cell countsOrdered By: Renard Burgos on 07-31-2023 MCH (RBC) [Entitic mass] 29.9 pg 27.0-32.0 [facility] MCHC (RBC) [Mass/Vol] 33.3 g/dL 32-36 [facility] Nucleated RBC/100 WBC (Bld) [Ratio] 0 % 0-5 [facility] Platelet mean volume (Bld) [Entitic vol] 10.6 fL 6.2-12.0 [facility] Platelets (Bld) [#/Vol] 201 10*3/uL 150-450 [facility] RBC Auto (Bld) [#/Vol]Ordere d By: Renard Burgos on 07-31-2023 RBC (Bld) [#/Vol] 4.65 10*6/uL 4.6-6.2 [facility] Absolute lymphocyte countOrd ered By: Renard Burgos on 07-24-2023 Lymphocytes Auto (Unsp spec) [#/Vol] 2.00 10*3/uL 0.83-4.51 [facility] Automated lymphocyte count a s percentage of total leukocytesOrdered By: Renard Burgos on 07-24-2023 Lymphocytes/100 WBC Auto (Unsp spec) 26.2 % 19-41 [facility] Basophil percentageOrdered B y: Renard Burgos on 07-24-2023 Basophils/100 WBC (Bld) 0.7 % 0-1 [facility] Eosinophils/100 WBC (Bld) 0.7 % 0-5 [facility] Hemoglobin (Bld) [Mass/Vol] 14.2 g/dL 13.0-16.5 [facility] Monocytes/100 WBC (Bld) 6.4 % 0-10 [facility] Neutrophils (Bld) [#/Vol] 5.0 10*3/uL 2.0-7.7 [facility] Neutrophils/100 WBC (Bld) 65.6 % 47-70 [facility] WBC (Bld) [#/Vol] 7.6 10*3/uL 4.4-11.0 [facility] Determination of erythrocyte mean corpuscular volume (MCV)Ordered By: Renard Burgos on 07-24-2023 MCV (RBC) [Entitic vol] 89.8 fL 80-94 [facility] Erythrocyte distribution wid th ratioOrdered By: Renard Burgos on 07-24-2023 Erythrocyte distribution width (RBC) [Ratio] 12.8 % 11.6-14.6 [facility] Erythrocyte distribution wid th standard deviationOrdered By: Renard Burgos on 07-24-2023 Erythrocyte distribution width (RBC) [Entitic vol] 42.0 fL 35.1-43.9 [facility] Hematocrit Auto (Bld) [Volum e fraction]Ordered By: Renard Burgos on 07-24-2023 Hematocrit (Bld) [Volume fraction] 43.3 % 40-54 [facility] Immature granulocytes/100 WB C Auto (Bld)Ordered By: Renard Burgos on 07-24-2023 Immature granulocytes/100 WBC (Bld) 0.400 % 0.0-0.9 [facility] Comment on above: IG% - Immature Granu locytes (promyelocytes, myelocytes and metamyelocytes) > 1% indicates that a LEFT SHIFT is Present. Laboratory - Hematology and Cell countsOrdered By: Renard Burgos on 07-24-2023 MCH (RBC) [Entitic mass] 29.5 pg 27.0-32.0 [facility] MCHC (RBC) [Mass/Vol] 32.8 g/dL 32-36 [facility] Nucleated RBC/100 WBC (Bld) [Ratio] 0 % 0-5 [facility] Platelet mean volume (Bld) [Entitic vol] 11.0 fL 6.2-12.0 [facility] Platelets (Bld) [#/Vol] 215 10*3/uL 150-450 [facility] RBC Auto (Bld) [#/Vol]Ordere d By: Renard Burgos on 07-24-2023 RBC (Bld) [#/Vol] 4.82 10*6/uL 4.6-6.2 [facility] Absolute lymphocyte countOrd ered By: Renard Burgos on 07-17-2023 Lymphocytes Auto (Unsp spec) [#/Vol] 2.22 10*3/uL 0.83-4.51 [facility] Automated lymphocyte count a s percentage of total leukocytesOrdered By: Renard Burgos on 07-17-2023 Lymphocytes/100 WBC Auto (Unsp spec) 25.4 % 19-41 [facility] Basophil percentageOrdered B y: Renard Burgos on 07-17-2023 Basophils/100 WBC (Bld) 0.5 % 0-1 [facility] Cholesterol [Mass/Vol] 126 mg/dL <200 [facility] Comment on above: <200 mg/dL Desirable 200-240 mg/dL Borderline >240 mg/dL High Risk Eosinophils/100 WBC (Bld) 0.6 % 0-5 [facility] Hemoglobin (Bld) [Mass/Vol] 14.0 g/dL 13.0-16.5 [facility] Monocytes/100 WBC (Bld) 6.6 % 0-10 [facility] Neutrophils (Bld) [#/Vol] 5.8 10*3/uL 2.0-7.7 [facility] Neutrophils/100 WBC (Bld) 66.4 % 47-70 [facility] Triglyceride [Mass/Vol] 176 mg/dL <199 [facility] Comment on above: The drugs N-Acetylcy steine and Metamizole may falsely depress this assay.Serum Triglycerides Reference Interval Normal <150 mg/dL Borderline high 150 - 199 mg/dL High 200 - 499 mg/dL Very High > or = 500 mg/dL WBC (Bld) [#/Vol] 8.7 10*3/uL 4.4-11.0 [facility] Determination of erythrocyte mean corpuscular volume (MCV)Ordered By: Renard Burgos on 07-17-2023 MCV (RBC) [Entitic vol] 90.5 fL 80-94 [facility] Erythrocyte distribution wid th ratioOrdered By: Renard Burgos on 07-17-2023 Erythrocyte distribution width (RBC) [Ratio] 12.4 % 11.6-14.6 [facility] Erythrocyte distribution wid th standard deviationOrdered By: Renard Burgos on 07-17-2023 Erythrocyte distribution width (RBC) [Entitic vol] 41.1 fL 35.1-43.9 [facility] Hematocrit Auto (Bld) [Volum e fraction]Ordered By: Renard Burgos on 07-17-2023 Hematocrit (Bld) [Volume fraction] 42.8 % 40-54 [facility] Immature granulocytes/100 WB C Auto (Bld)Ordered By: Renard Burgos on 07-17-2023 Immature granulocytes/100 WBC (Bld) 0.500 % 0.0-0.9 [facility] Comment on above: IG% - Immature Granu locytes (promyelocytes, myelocytes and metamyelocytes) > 1% indicates that a LEFT SHIFT is Present. Laboratory - Chemistry and C hemistry - challengeOrdered By: Renard Burgos on 07-17-2023 Cholesterol in HDL [Mass/Vol] 28 mg/dL >40 [facility] Comment on above: The drugs N-Acetylcy steine and Metamizole may falsely depress this assay. Reference Range HDL <40 mg/dL Low HDL Cholesterol HDL >or= 60 mg/dL High HDL Cholesterol Cholesterol in LDL [Mass/Vol] 63 mg/dL 0-130 [facility] Laboratory - Hematology and Cell countsOrdered By: Renard Burgos on 07-17-2023 MCH (RBC) [Entitic mass] 29.6 pg 27.0-32.0 [facility] MCHC (RBC) [Mass/Vol] 32.7 g/dL 32-36 [facility] Nucleated RBC/100 WBC (Bld) [Ratio] 0 % 0-5 [facility] Platelet mean volume (Bld) [Entitic vol] 10.9 fL 6.2-12.0 [facility] Platelets (Bld) [#/Vol] 193 10*3/uL 150-450 [facility] No Panel InformationOrdered By: Renard Burgos on 07-17-2023 Vitamin D 25-Hydroxy 33.1 ng/mL [facility] Comment on above: Vitamin D 25(OH) Sta tus Range Deficiency <20 ng/mL (50nmol/L) Insufficiency 20 - 30 ng/mL (50 - 75 nmol/L) Sufficiency 30 - 100 ng/mL (75 - 250 nmol/L) Toxicity >100 ng/mL (>250 nmol/L) VLDL Cholesterol 35 mg/dL 5-40 [facility] RBC Auto (Bld) [#/Vol]Ordere d By: Renard Burgos on 07-17-2023 RBC (Bld) [#/Vol] 4.73 10*6/uL 4.6-6.2 [facility] Absolute lymphocyte countOrd ered By: Renard Burgos on 07-10-2023 Lymphocytes Auto (Unsp spec) [#/Vol] 2.14 10*3/uL 0.83-4.51 [facility] Automated lymphocyte count a s percentage of total leukocytesOrdered By: Renard Burgos on 07-10-2023 Lymphocytes/100 WBC Auto (Unsp spec) 24.7 % 19-41 [facility] Basophil percentageOrdered B y: Renard Burgos on 07-10-2023 Basophils/100 WBC (Bld) 0.3 % 0-1 [facility] Eosinophils/100 WBC (Bld) 0.3 % 0-5 [facility] Hemoglobin (Bld) [Mass/Vol] 13.8 g/dL 13.0-16.5 [facility] Monocytes/100 WBC (Bld) 7.8 % 0-10 [facility] Neutrophils (Bld) [#/Vol] 5.8 10*3/uL 2.0-7.7 [facility] Neutrophils/100 WBC (Bld) 66.4 % 47-70 [facility] WBC (Bld) [#/Vol] 8.7 10*3/uL 4.4-11.0 [facility] Determination of erythrocyte mean corpuscular volume (MCV)Ordered By: Renard Burgos on 07-10-2023 MCV (RBC) [Entitic vol] 88.9 fL 80-94 [facility] Erythrocyte distribution wid th ratioOrdered By: Renard Burgos on 07-10-2023 Erythrocyte distribution width (RBC) [Ratio] 12.6 % 11.6-14.6 [facility] Erythrocyte distribution wid th standard deviationOrdered By: Renard Burgos on 07-10-2023 Erythrocyte distribution width (RBC) [Entitic vol] 40.6 fL 35.1-43.9 [facility] Hematocrit Auto (Bld) [Volum e fraction]Ordered By: Renard Burgos on 07-10-2023 Hematocrit (Bld) [Volume fraction] 41.0 % 40-54 [facility] Immature granulocytes/100 WB C Auto (Bld)Ordered By: Renard Burgos on 07-10-2023 Immature granulocytes/100 WBC (Bld) 0.500 % 0.0-0.9 [facility] Comment on above: IG% - Immature Granu locytes (promyelocytes, myelocytes and metamyelocytes) > 1% indicates that a LEFT SHIFT is Present. Laboratory - Hematology and Cell countsOrdered By: Renard Burgos on 07-10-2023 MCH (RBC) [Entitic mass] 29.9 pg 27.0-32.0 [facility] MCHC (RBC) [Mass/Vol] 33.7 g/dL 32-36 [facility] Nucleated RBC/100 WBC (Bld) [Ratio] 0 % 0-5 [facility] Platelet mean volume (Bld) [Entitic vol] 11.0 fL 6.2-12.0 [facility] Platelets (Bld) [#/Vol] 215 10*3/uL 150-450 [facility] RBC Auto (Bld) [#/Vol]Ordere d By: Renard Burgos on 07-10-2023 RBC (Bld) [#/Vol] 4.61 10*6/uL 4.6-6.2 [facility] Absolute lymphocyte countOrd ered By: Renard Burgos on 07-03-2023 Lymphocytes Auto (Unsp spec) [#/Vol] 1.84 10*3/uL 0.83-4.51 [facility] Automated lymphocyte count a s percentage of total leukocytesOrdered By: Renard Burgos on 07-03-2023 Lymphocytes/100 WBC Auto (Unsp spec) 16.9 % 19-41 [facility] Basophil percentageOrdered B y: Renard Burgos on 07-03-2023 Basophil percentage 3.17 ng/mL 0.0-4.0 [facility] Comment on above: This test was perfor med using the TPSA assay method for the[employer] chemistry system. Values obtained with differentassay methods cannot be used interchangably.When changing PSA assays in the course of monitoring apatient, additional sequential testing should be carriedout to confirm baseline values. Basophils/100 WBC (Bld) 0.5 % 0-1 [facility] Eosinophils/100 WBC (Bld) 0.4 % 0-5 [facility] Hemoglobin (Bld) [Mass/Vol] 13.2 g/dL 13.0-16.5 [facility] Monocytes/100 WBC (Bld) 7.4 % 0-10 [facility] Neutrophils (Bld) [#/Vol] 8.1 10*3/uL 2.0-7.7 [facility] Neutrophils/100 WBC (Bld) 74.4 % 47-70 [facility] WBC (Bld) [#/Vol] 10.9 10*3/uL 4.4-11.0 [facility] Determination of erythrocyte mean corpuscular volume (MCV)Ordered By: Renard Burgos on 07-03-2023 MCV (RBC) [Entitic vol] 89.8 fL 80-94 [facility] Erythrocyte distribution wid th ratioOrdered By: Renard Burgos on 07-03-2023 Erythrocyte distribution width (RBC) [Ratio] 12.7 % 11.6-14.6 [facility] Erythrocyte distribution wid th standard deviationOrdered By: Renard Burgos on 07-03-2023 Erythrocyte distribution width (RBC) [Entitic vol] 41.9 fL 35.1-43.9 [facility] Hematocrit Auto (Bld) [Volum e fraction]Ordered By: Renard Burgos on 07-03-2023 Hematocrit (Bld) [Volume fraction] 40.3 % 40-54 [facility] Immature granulocytes/100 WB C Auto (Bld)Ordered By: Renard Burgos on 07-03-2023 Immature granulocytes/100 WBC (Bld) 0.400 % 0.0-0.9 [facility] Comment on above: IG% - Immature Granu locytes (promyelocytes, myelocytes and metamyelocytes) > 1% indicates that a LEFT SHIFT is Present. Laboratory - Hematology and Cell countsOrdered By: Renard Burgos on 07-03-2023 MCH (RBC) [Entitic mass] 29.4 pg 27.0-32.0 [facility] MCHC (RBC) [Mass/Vol] 32.8 g/dL 32-36 [facility] Nucleated RBC/100 WBC (Bld) [Ratio] 0 % 0-5 [facility] Platelet mean volume (Bld) [Entitic vol] 11.2 fL 6.2-12.0 [facility] Platelets (Bld) [#/Vol] 191 10*3/uL 150-450 [facility] RBC Auto (Bld) [#/Vol]Ordere d By: Renard Burgos on 07-03-2023 RBC (Bld) [#/Vol] 4.49 10*6/uL 4.6-6.2 [facility] Absolute lymphocyte countOrd ered By: Renard Burgos on 06-26-2023 Lymphocytes Auto (Unsp spec) [#/Vol] 2.23 10*3/uL 0.83-4.51 [facility] Automated lymphocyte count a s percentage of total leukocytesOrdered By: Renard Burgos on 06-26-2023 Lymphocytes/100 WBC Auto (Unsp spec) 27.3 % 19-41 [facility] Basophil percentageOrdered B y: Renard Burgos on 06-26-2023 Basophils/100 WBC (Bld) 0.5 % 0-1 [facility] Eosinophils/100 WBC (Bld) 0.7 % 0-5 [facility] Hemoglobin (Bld) [Mass/Vol] 13.7 g/dL 13.0-16.5 [facility] Monocytes/100 WBC (Bld) 9.5 % 0-10 [facility] Neutrophils (Bld) [#/Vol] 5.1 10*3/uL 2.0-7.7 [facility] Neutrophils/100 WBC (Bld) 61.8 % 47-70 [facility] WBC (Bld) [#/Vol] 8.2 10*3/uL 4.4-11.0 [facility] Determination of erythrocyte mean corpuscular volume (MCV)Ordered By: Renard Burgos on 06-26-2023 MCV (RBC) [Entitic vol] 92.2 fL 80-94 [facility] Erythrocyte distribution wid th ratioOrdered By: Renard Burgos on 06-26-2023 Erythrocyte distribution width (RBC) [Ratio] 12.7 % 11.6-14.6 [facility] Erythrocyte distribution wid th standard deviationOrdered By: Renard Burgos on 06-26-2023 Erythrocyte distribution width (RBC) [Entitic vol] 42.8 fL 35.1-43.9 [facility] Hematocrit Auto (Bld) [Volum e fraction]Ordered By: Renard Burgos on 06-26-2023 Hematocrit (Bld) [Volume fraction] 42.6 % 40-54 [facility] Immature granulocytes/100 WB C Auto (Bld)Ordered By: Renard Burgos on 06-26-2023 Immature granulocytes/100 WBC (Bld) 0.200 % 0.0-0.9 [facility] Comment on above: IG% - Immature Granu locytes (promyelocytes, myelocytes and metamyelocytes) > 1% indicates that a LEFT SHIFT is Present. Laboratory - Hematology and Cell countsOrdered By: Renard Burgos on 06-26-2023 MCH (RBC) [Entitic mass] 29.7 pg 27.0-32.0 [facility] MCHC (RBC) [Mass/Vol] 32.2 g/dL 32-36 [facility] Nucleated RBC/100 WBC (Bld) [Ratio] 0 % 0-5 [facility] Platelet mean volume (Bld) [Entitic vol] 11.0 fL 6.2-12.0 [facility] Platelets (Bld) [#/Vol] 182 10*3/uL 150-450 [facility] RBC Auto (Bld) [#/Vol]Ordere d By: Renard Burgos on 06-26-2023 RBC (Bld) [#/Vol] 4.62 10*6/uL 4.6-6.2 [facility] Absolute lymphocyte countOrd ered By: Renard Burgos on 06-19-2023 Lymphocytes Auto (Unsp spec) [#/Vol] 2.13 10*3/uL 0.83-4.51 [facility] Automated lymphocyte count a s percentage of total leukocytesOrdered By: Renard Burgos on 06-19-2023 Lymphocytes/100 WBC Auto (Unsp spec) 28.8 % 19-41 [facility] Basophil percentageOrdered B y: Renard Burgos on 06-19-2023 Basophils/100 WBC (Bld) 0.5 % 0-1 [facility] Eosinophils/100 WBC (Bld) 0.5 % 0-5 [facility] Hemoglobin (Bld) [Mass/Vol] 13.7 g/dL 13.0-16.5 [facility] Monocytes/100 WBC (Bld) 8.1 % 0-10 [facility] Neutrophils (Bld) [#/Vol] 4.6 10*3/uL 2.0-7.7 [facility] Neutrophils/100 WBC (Bld) 61.6 % 47-70 [facility] WBC (Bld) [#/Vol] 7.4 10*3/uL 4.4-11.0 [facility] Determination of erythrocyte mean corpuscular volume (MCV)Ordered By: Renard Burgos on 06-19-2023 MCV (RBC) [Entitic vol] 91.7 fL 80-94 [facility] Erythrocyte distribution wid th ratioOrdered By: Renard Burgos on 06-19-2023 Erythrocyte distribution width (RBC) [Ratio] 12.7 % 11.6-14.6 [facility] Erythrocyte distribution wid th standard deviationOrdered By: Renard Burgos on 06-19-2023 Erythrocyte distribution width (RBC) [Entitic vol] 42.8 fL 35.1-43.9 [facility] Hematocrit Auto (Bld) [Volum e fraction]Ordered By: Renard Burgos on 06-19-2023 Hematocrit (Bld) [Volume fraction] 43.1 % 40-54 [facility] Immature granulocytes/100 WB C Auto (Bld)Ordered By: Renard Burgos on 06-19-2023 Immature granulocytes/100 WBC (Bld) 0.500 % 0.0-0.9 [facility] Comment on above: IG% - Immature Granu locytes (promyelocytes, myelocytes and metamyelocytes) > 1% indicates that a LEFT SHIFT is Present. Laboratory - Hematology and Cell countsOrdered By: Renard Burgos on 06-19-2023 MCH (RBC) [Entitic mass] 29.1 pg 27.0-32.0 [facility] MCHC (RBC) [Mass/Vol] 31.8 g/dL 32-36 [facility] Nucleated RBC/100 WBC (Bld) [Ratio] 0 % 0-5 [facility] Platelet mean volume (Bld) [Entitic vol] 11.1 fL 6.2-12.0 [facility] Platelets (Bld) [#/Vol] 201 10*3/uL 150-450 [facility] RBC Auto (Bld) [#/Vol]Ordere d By: Renard Burgos on 06-19-2023 RBC (Bld) [#/Vol] 4.70 10*6/uL 4.6-6.2 [facility] Absolute lymphocyte countOrd ered By: Renard Burgos on 06-12-2023 Lymphocytes Auto (Unsp spec) [#/Vol] 2.17 10*3/uL 0.83-4.51 [facility] Automated lymphocyte count a s percentage of total leukocytesOrdered By: Renard Burgos on 06-12-2023 Lymphocytes/100 WBC Auto (Unsp spec) 26.7 % 19-41 [facility] Basophil percentageOrdered B y: Renard Burgos on 06-12-2023 Basophils/100 WBC (Bld) 0.4 % 0-1 [facility] Eosinophils/100 WBC (Bld) 0.5 % 0-5 [facility] Hemoglobin (Bld) [Mass/Vol] 13.5 g/dL 13.0-16.5 [facility] Monocytes/100 WBC (Bld) 9.0 % 0-10 [facility] Neutrophils (Bld) [#/Vol] 5.1 10*3/uL 2.0-7.7 [facility] Neutrophils/100 WBC (Bld) 63.0 % 47-70 [facility] WBC (Bld) [#/Vol] 8.1 10*3/uL 4.4-11.0 [facility] Determination of erythrocyte mean corpuscular volume (MCV)Ordered By: Renard Burgos on 06-12-2023 MCV (RBC) [Entitic vol] 91.3 fL 80-94 [facility] Erythrocyte distribution wid th ratioOrdered By: Renard Burgos on 06-12-2023 Erythrocyte distribution width (RBC) [Ratio] 12.6 % 11.6-14.6 [facility] Erythrocyte distribution wid th standard deviationOrdered By: Renard Burgos on 06-12-2023 Erythrocyte distribution width (RBC) [Entitic vol] 41.5 fL 35.1-43.9 [facility] Hematocrit Auto (Bld) [Volum e fraction]Ordered By: Renard Burgos on 06-12-2023 Hematocrit (Bld) [Volume fraction] 40.8 % 40-54 [facility] Immature granulocytes/100 WB C Auto (Bld)Ordered By: Renard Burgos on 06-12-2023 Immature granulocytes/100 WBC (Bld) 0.400 % 0.0-0.9 [facility] Comment on above: IG% - Immature Granu locytes (promyelocytes, myelocytes and metamyelocytes) > 1% indicates that a LEFT SHIFT is Present. Laboratory - Hematology and Cell countsOrdered By: Renard Burgos on 06-12-2023 MCH (RBC) [Entitic mass] 30.2 pg 27.0-32.0 [facility] MCHC (RBC) [Mass/Vol] 33.1 g/dL 32-36 [facility] Nucleated RBC/100 WBC (Bld) [Ratio] 0 % 0-5 [facility] Platelet mean volume (Bld) [Entitic vol] 11.0 fL 6.2-12.0 [facility] Platelets (Bld) [#/Vol] 195 10*3/uL 150-450 [facility] RBC Auto (Bld) [#/Vol]Ordere d By: Renard Burgos on 06-12-2023 RBC (Bld) [#/Vol] 4.47 10*6/uL 4.6-6.2 [facility] Absolute lymphocyte countOrd ered By: Renard Burgos on 06-05-2023 Lymphocytes Auto (Unsp spec) [#/Vol] 2.05 10*3/uL 0.83-4.51 [facility] Automated lymphocyte count a s percentage of total leukocytesOrdered By: Renard Burgos on 06-05-2023 Lymphocytes/100 WBC Auto (Unsp spec) 24.1 % 19-41 [facility] Basophil percentageOrdered B y: Renard Burgos on 06-05-2023 Basophils/100 WBC (Bld) 0.5 % 0-1 [facility] Eosinophils/100 WBC (Bld) 0.5 % 0-5 [facility] Hemoglobin (Bld) [Mass/Vol] 13.6 g/dL 13.0-16.5 [facility] Monocytes/100 WBC (Bld) 7.6 % 0-10 [facility] Neutrophils (Bld) [#/Vol] 5.7 10*3/uL 2.0-7.7 [facility] Neutrophils/100 WBC (Bld) 66.9 % 47-70 [facility] WBC (Bld) [#/Vol] 8.5 10*3/uL 4.4-11.0 [facility] Determination of erythrocyte mean corpuscular volume (MCV)Ordered By: Renard Burgos on 06-05-2023 MCV (RBC) [Entitic vol] 89.7 fL 80-94 [facility] Erythrocyte distribution wid th ratioOrdered By: Renard Burgos on 06-05-2023 Erythrocyte distribution width (RBC) [Ratio] 12.6 % 11.6-14.6 [facility] Erythrocyte distribution wid th standard deviationOrdered By: Renard Burgos on 06-05-2023 Erythrocyte distribution width (RBC) [Entitic vol] 41.1 fL 35.1-43.9 [facility] Hematocrit Auto (Bld) [Volum e fraction]Ordered By: Renard Burgos on 06-05-2023 Hematocrit (Bld) [Volume fraction] 41.0 % 40-54 [facility] Immature granulocytes/100 WB C Auto (Bld)Ordered By: Renard Burgos on 06-05-2023 Immature granulocytes/100 WBC (Bld) 0.400 % 0.0-0.9 [facility] Comment on above: IG% - Immature Granu locytes (promyelocytes, myelocytes and metamyelocytes) > 1% indicates that a LEFT SHIFT is Present. Laboratory - Hematology and Cell countsOrdered By: Renard Burgos on 06-05-2023 MCH (RBC) [Entitic mass] 29.8 pg 27.0-32.0 [facility] MCHC (RBC) [Mass/Vol] 33.2 g/dL 32-36 [facility] Nucleated RBC/100 WBC (Bld) [Ratio] 0 % 0-5 [facility] Platelets (Bld) [#/Vol] 193 10*3/uL 150-450 [facility] Platelet mean volume Adam-Ec ker (Bld) [Entitic vol]Ordered By: Renard Burgos on 06-05-2023 Platelet mean volume (Bld) [Entitic vol] 10.8 fL 6.2-12.0 [facility] RBC Auto (Bld) [#/Vol]Ordere d By: Renard Burgos on 06-05-2023 RBC (Bld) [#/Vol] 4.57 10*6/uL 4.6-6.2 [facility] Absolute lymphocyte countOrd ered By: Renard Burgos on 05-29-2023 Lymphocytes Auto (Unsp spec) [#/Vol] 2.32 10*3/uL 0.83-4.51 [facility] Automated lymphocyte count a s percentage of total leukocytesOrdered By: Renard Brugos on 05-29-2023 Lymphocytes/100 WBC Auto (Unsp spec) 26.7 % 19-41 [facility] Basophil percentageOrdered B y: Renard Burgos on 05-29-2023 Basophils/100 WBC (Bld) 0.6 % 0-1 [facility] Eosinophils/100 WBC (Bld) 0.5 % 0-5 [facility] Hemoglobin (Bld) [Mass/Vol] 14.2 g/dL 13.0-16.5 [facility] Monocytes/100 WBC (Bld) 6.8 % 0-10 [facility] Neutrophils (Bld) [#/Vol] 5.7 10*3/uL 2.0-7.7 [facility] Neutrophils/100 WBC (Bld) 65.2 % 47-70 [facility] WBC (Bld) [#/Vol] 8.7 10*3/uL 4.4-11.0 [facility] Determination of erythrocyte mean corpuscular volume (MCV)Ordered By: Renard Burgos on 05-29-2023 MCV (RBC) [Entitic vol] 94.0 fL 80-94 [facility] Erythrocyte distribution wid th ratioOrdered By: Renard Burgos on 05-29-2023 Erythrocyte distribution width (RBC) [Ratio] 12.6 % 11.6-14.6 [facility] Erythrocyte distribution wid th standard deviationOrdered By: Renard Burgos on 05-29-2023 Erythrocyte distribution width (RBC) [Entitic vol] 43.0 fL 35.1-43.9 [facility] Hematocrit Auto (Bld) [Volum e fraction]Ordered By: Renard Burgos on 05-29-2023 Hematocrit (Bld) [Volume fraction] 45.4 % 40-54 [facility] Immature granulocytes/100 WB C Auto (Bld)Ordered By: Renard Burgos on 05-29-2023 Immature granulocytes/100 WBC (Bld) 0.200 % 0.0-0.9 [facility] Comment on above: IG% - Immature Granu locytes (promyelocytes, myelocytes and metamyelocytes) > 1% indicates that a LEFT SHIFT is Present. Laboratory - Hematology and Cell countsOrdered By: Renard Burgos on 05-29-2023 MCH (RBC) [Entitic mass] 29.4 pg 27.0-32.0 [facility] MCHC (RBC) [Mass/Vol] 31.3 g/dL 32-36 [facility] Nucleated RBC/100 WBC (Bld) [Ratio] 0 % 0-5 [facility] Platelets (Bld) [#/Vol] 116 10*3/uL 150-450 [facility] Platelet mean volume Adam-Ec ker (Bld) [Entitic vol]Ordered By: Renard Burgos on 05-29-2023 Platelet mean volume (Bld) [Entitic vol] 11.1 fL 6.2-12.0 [facility] RBC Auto (Bld) [#/Vol]Ordere d By: Renard Burgos on 05-29-2023 RBC (Bld) [#/Vol] 4.83 10*6/uL 4.6-6.2 [facility] Absolute lymphocyte countOrd ered By: Renard Burgos on 05-22-2023 Lymphocytes Auto (Unsp spec) [#/Vol] 2.40 10*3/uL 0.83-4.51 [facility] Automated lymphocyte count a s percentage of total leukocytesOrdered By: Renard Burgos on 05-22-2023 Lymphocytes/100 WBC Auto (Unsp spec) 25.6 % 19-41 [facility] Basophil percentageOrdered B y: Renard Burgos on 05-22-2023 Basophils/100 WBC (Bld) 0.4 % 0-1 [facility] Eosinophils/100 WBC (Bld) 0.4 % 0-5 [facility] Hemoglobin (Bld) [Mass/Vol] 13.7 g/dL 13.0-16.5 [facility] Monocytes/100 WBC (Bld) 9.1 % 0-10 [facility] Neutrophils (Bld) [#/Vol] 6.0 10*3/uL 2.0-7.7 [facility] Neutrophils/100 WBC (Bld) 63.9 % 47-70 [facility] WBC (Bld) [#/Vol] 9.4 10*3/uL 4.4-11.0 [facility] Determination of erythrocyte mean corpuscular volume (MCV)Ordered By: Renard Burgos on 05-22-2023 MCV (RBC) [Entitic vol] 91.8 fL 80-94 [facility] Erythrocyte distribution wid th ratioOrdered By: Renard Burgos on 05-22-2023 Erythrocyte distribution width (RBC) [Ratio] 12.8 % 11.6-14.6 [facility] Erythrocyte distribution wid th standard deviationOrdered By: Renard Burgos on 05-22-2023 Erythrocyte distribution width (RBC) [Entitic vol] 43.4 fL 35.1-43.9 [facility] Hematocrit Auto (Bld) [Volum e fraction]Ordered By: Renard Burgos on 05-22-2023 Hematocrit (Bld) [Volume fraction] 41.5 % 40-54 [facility] Immature granulocytes/100 WB C Auto (Bld)Ordered By: Renard Burgos on 05-22-2023 Immature granulocytes/100 WBC (Bld) 0.600 % 0.0-0.9 [facility] Comment on above: IG% - Immature Granu locytes (promyelocytes, myelocytes and metamyelocytes) > 1% indicates that a LEFT SHIFT is Present. Laboratory - Hematology and Cell countsOrdered By: Renard Burgos on 05-22-2023 MCH (RBC) [Entitic mass] 30.3 pg 27.0-32.0 [facility] MCHC (RBC) [Mass/Vol] 33.0 g/dL 32-36 [facility] Nucleated RBC/100 WBC (Bld) [Ratio] 0 % 0-5 [facility] Platelets (Bld) [#/Vol] 192 10*3/uL 150-450 [facility] Platelet mean volume Adam-Ec ker (Bld) [Entitic vol]Ordered By: Renard Burgos on 05-22-2023 Platelet mean volume (Bld) [Entitic vol] 11.3 fL 6.2-12.0 [facility] RBC Auto (Bld) [#/Vol]Ordere d By: Renard Burgos on 05-22-2023 RBC (Bld) [#/Vol] 4.52 10*6/uL 4.6-6.2 [facility] Absolute lymphocyte countOrd ered By: Renard Burgos on 05-15-2023 Lymphocytes Auto (Unsp spec) [#/Vol] 2.11 10*3/uL 0.83-4.51 [facility] Basophil percentageOrdered B y: Renard Burgos on 05-15-2023 Basophils/100 WBC (Bld) 0.6 % 0-1 [facility] Eosinophils/100 WBC (Bld) 0.8 % 0-5 [facility] Neutrophils (Bld) [#/Vol] 4.9 10*3/uL 2.0-7.7 [facility] Neutrophils/100 WBC (Bld) 62.4 % 47-70 [facility] WBC (Bld) [#/Vol] 7.9 10*3/uL 4.4-11.0 [facility] Blood erythrocytes count (nu mber/volume)Ordered By: Renard Burgos on 05-15-2023 RBC (Bld) [#/Vol] 4.61 10*6/uL 4.6-6.2 [facility] Blood hemoglobin measurement (mass/volume)Ordered By: Renard Burgos on 05-15-2023 Hemoglobin (Bld) [Mass/Vol] 13.9 g/dL 13.0-16.5 [facility] Blood lymphocytes/100 leukoc ytesOrdered By: Renard Burgos on 05-15-2023 Lymphocytes/100 WBC (Bld) 26.7 % 19-41 [facility] Blood monocytes/100 leukocyt esOrdered By: Renard Burgos on 05-15-2023 Monocytes/100 WBC (Bld) 9.1 % 0-10 [facility] Blood platelet mean volumeOr dered By: Renard Burgos on 05-15-2023 Platelet mean volume (Bld) [Entitic vol] 10.7 fL 6.2-12.0 [facility] Determination of erythrocyte mean corpuscular volume (MCV)Ordered By: Renard Burgos on 05-15-2023 MCV (RBC) [Entitic vol] 90.5 fL 80-94 [facility] Hematocrit Auto (Bld) [Volum e fraction]Ordered By: Renard Burgos on 05-15-2023 Hematocrit (Bld) [Volume fraction] 41.7 % 40-54 [facility] Laboratory - Hematology and Cell countsOrdered By: Renard Burgos on 05-15-2023 Erythrocyte distribution width (RBC) [Entitic vol] 42.4 fL 35.1-43.9 [facility] Erythrocyte distribution width (RBC) [Ratio] 12.9 % 11.6-14.6 [facility] Immature granulocytes/100 WBC (Bld) 0.400 % 0.0-0.9 [facility] Comment on above: IG% - Immature Granu locytes (promyelocytes, myelocytes and metamyelocytes) > 1% indicates that a LEFT SHIFT is Present. MCH (RBC) [Entitic mass] 30.2 pg 27.0-32.0 [facility] Nucleated RBC/100 WBC (Bld) [Ratio] 0 % 0-5 [facility] MCHC Auto (RBC) [Mass/Vol]Or dered By: Renard Burgos on 05-15-2023 MCHC (RBC) [Mass/Vol] 33.3 g/dL 32-36 [facility] Platelets bldOrdered By: Lyubov Burgos on 05-15-2023 Platelets (Bld) [#/Vol] 202 10*3/uL 150-450 [facility] Absolute lymphocyte countOrd ered By: Renard Burgos on 05-08-2023 Lymphocytes Auto (Unsp spec) [#/Vol] 2.06 10*3/uL 0.83-4.51 [facility] Basophil percentageOrdered B y: Renard Burgos on 05-08-2023 Basophils/100 WBC (Bld) 0.4 % 0-1 [facility] Eosinophils/100 WBC (Bld) 0.5 % 0-5 [facility] Neutrophils (Bld) [#/Vol] 5.0 10*3/uL 2.0-7.7 [facility] Neutrophils/100 WBC (Bld) 65.7 % 47-70 [facility] WBC (Bld) [#/Vol] 7.5 10*3/uL 4.4-11.0 [facility] Blood erythrocytes count (nu mber/volume)Ordered By: Renard Burgos on 05-08-2023 RBC (Bld) [#/Vol] 4.62 10*6/uL 4.6-6.2 [facility] Blood hemoglobin measurement (mass/volume)Ordered By: Renard Burgos on 05-08-2023 Hemoglobin (Bld) [Mass/Vol] 13.6 g/dL 13.0-16.5 [facility] Blood lymphocytes/100 leukoc ytesOrdered By: Renard Burgos on 05-08-2023 Lymphocytes/100 WBC (Bld) 27.4 % 19-41 [facility] Blood monocytes/100 leukocyt esOrdered By: Renard Burgos on 05-08-2023 Monocytes/100 WBC (Bld) 5.6 % 0-10 [facility] Blood platelet mean volumeOr dered By: Renard Burgos on 05-08-2023 Platelet mean volume (Bld) [Entitic vol] 11.0 fL 6.2-12.0 [facility] Determination of erythrocyte mean corpuscular volume (MCV)Ordered By: Renard Burgos on 05-08-2023 MCV (RBC) [Entitic vol] 91.8 fL 80-94 [facility] Hematocrit Auto (Bld) [Volum e fraction]Ordered By: Renard Burgos on 05-08-2023 Hematocrit (Bld) [Volume fraction] 42.4 % 40-54 [facility] Laboratory - Hematology and Cell countsOrdered By: Renard Burgos on 05-08-2023 Erythrocyte distribution width (RBC) [Entitic vol] 43.1 fL 35.1-43.9 [facility] Erythrocyte distribution width (RBC) [Ratio] 13.0 % 11.6-14.6 [facility] Immature granulocytes/100 WBC (Bld) 0.400 % 0.0-0.9 [facility] Comment on above: IG% - Immature Granu locytes (promyelocytes, myelocytes and metamyelocytes) > 1% indicates that a LEFT SHIFT is Present. MCH (RBC) [Entitic mass] 29.4 pg 27.0-32.0 [facility] Nucleated RBC/100 WBC (Bld) [Ratio] 0 % 0-5 [facility] MCHC Auto (RBC) [Mass/Vol]Or dered By: Renard Burgos on 05-08-2023 MCHC (RBC) [Mass/Vol] 32.1 g/dL 32-36 [facility] Platelets bldOrdered By: Lyubov lizy Loretta on 05-08-2023 Platelets (Bld) [#/Vol] 226 10*3/uL 150-450 [facility] Absolute lymphocyte countOrd ered By: Renard Burgos on 04-17-2023 Lymphocytes Auto (Unsp spec) [#/Vol] 0.92 10*3/uL 0.83-4.51 [facility] Basophil percentageOrdered B y: Renard Burgos on 04-17-2023 Basophils/100 WBC (Bld) 0.1 % 0-1 [facility] Eosinophils/100 WBC (Bld) 0.0 % 0-5 [facility] Neutrophils (Bld) [#/Vol] 6.0 10*3/uL 2.0-7.7 [facility] Neutrophils/100 WBC (Bld) 81.4 % 47-70 [facility] WBC (Bld) [#/Vol] 7.4 10*3/uL 4.4-11.0 [facility] Blood erythrocytes count (nu mber/volume)Ordered By: Renard Burgos on 04-17-2023 RBC (Bld) [#/Vol] 4.59 10*6/uL 4.6-6.2 [facility] Blood hemoglobin measurement (mass/volume)Ordered By: Renard Burgos on 04-17-2023 Hemoglobin (Bld) [Mass/Vol] 13.7 g/dL 13.0-16.5 [facility] Blood lymphocytes/100 leukoc ytesOrdered By: Renard Burgos on 04-17-2023 Lymphocytes/100 WBC (Bld) 12.5 % 19-41 [facility] Blood monocytes/100 leukocyt esOrdered By: Renard Burgos on 04-17-2023 Monocytes/100 WBC (Bld) 5.6 % 0-10 [facility] Blood platelet mean volumeOr dered By: Renard Burgos on 04-17-2023 Platelet mean volume (Bld) [Entitic vol] 10.9 fL 6.2-12.0 [facility] Determination of erythrocyte mean corpuscular volume (MCV)Ordered By: Renard Burgos on 04-17-2023 MCV (RBC) [Entitic vol] 90.8 fL 80-94 [facility] Hematocrit Auto (Bld) [Volum e fraction]Ordered By: Renard Burgos on 04-17-2023 Hematocrit (Bld) [Volume fraction] 41.7 % 40-54 [facility] Laboratory - Hematology and Cell countsOrdered By: Renard Burgos on 04-17-2023 Erythrocyte distribution width (RBC) [Entitic vol] 42.3 fL 35.1-43.9 [facility] Erythrocyte distribution width (RBC) [Ratio] 12.8 % 11.6-14.6 [facility] Immature granulocytes/100 WBC (Bld) 0.400 % 0.0-0.9 [facility] Comment on above: IG% - Immature Granu locytes (promyelocytes, myelocytes and metamyelocytes) > 1% indicates that a LEFT SHIFT is Present. MCH (RBC) [Entitic mass] 29.8 pg 27.0-32.0 [facility] Nucleated RBC/100 WBC (Bld) [Ratio] 0 % 0-5 [facility] MCHC Auto (RBC) [Mass/Vol]Or dered By: Renard Burgos on 04-17-2023 MCHC (RBC) [Mass/Vol] 32.9 g/dL 32-36 [facility] Platelets bldOrdered By: Lyubov Burgos on 04-17-2023 Platelets (Bld) [#/Vol] 194 10*3/uL 150-450 [facility] Basophil percentageOrdered B y: Renard Burgos on 04-14-2023 Bilirubin [Mass/Vol] 0.30 mg/dL 0.20-1.00 [facility] Comment on above: For patients on eltr ombopag therapy, use of Dimension [place] TBIL is not recommended. Protein [Mass/Vol] 6.2 g/dL 6.4-8.2 [facility] Direct bilirubinOrdered By: Renard Burgos on 04-14-2023 Bilirubin.direct [Mass/Vol] 0.11 mg/dL 0.00-0.30 [facility] Laboratory - Chemistry and C hemistry - challengeOrdered By: Renard Burgos on 04-14-2023 ALP [Catalytic activity/Vol] 139 U/L 45-117 [facility] ALT [Catalytic activity/Vol] 23 U/L 16-61 [facility] Globulin (S) [Mass/Vol] 3.2 g/dL 2.2-4.2 [facility] Serum or plasma albumin gordy urement (mass/volume)Ordered By: Renard Burgos on 04-14-2023 Albumin [Mass/Vol] 3.0 g/dL 3.2-5.0 [facility] Thin prep Papanicolaou smear with manual screeningOrdered By: Renard Burgos on 04-14-2023 Thin prep Papanicolaou smear with manual screening 14 U/L 15-37 [facility] Absolute lymphocyte countOrd ered By: Renard Burgos on 04-10-2023 Lymphocytes Auto (Unsp spec) [#/Vol] 2.54 10*3/uL 0.83-4.51 [facility] Basophil percentageOrdered B y: Renard Burgos on 04-10-2023 Basophils/100 WBC (Bld) 0.5 % 0-1 [facility] Eosinophils/100 WBC (Bld) 0.5 % 0-5 [facility] Neutrophils (Bld) [#/Vol] 5.1 10*3/uL 2.0-7.7 [facility] Neutrophils/100 WBC (Bld) 59.0 % 47-70 [facility] WBC (Bld) [#/Vol] 8.7 10*3/uL 4.4-11.0 [facility] Blood erythrocytes count (nu mber/volume)Ordered By: Renard Burgos on 04-10-2023 RBC (Bld) [#/Vol] 4.84 10*6/uL 4.6-6.2 [facility] Blood hemoglobin measurement (mass/volume)Ordered By: Renard Burgos on 04-10-2023 Hemoglobin (Bld) [Mass/Vol] 14.2 g/dL 13.0-16.5 [facility] Blood lymphocytes/100 leukoc ytesOrdered By: Renard Burgos on 04-10-2023 Lymphocytes/100 WBC (Bld) 29.4 % 19-41 [facility] Blood monocytes/100 leukocyt esOrdered By: Renard Burgos on 04-10-2023 Monocytes/100 WBC (Bld) 10.3 % 0-10 [facility] Blood platelet mean volumeOr dered By: Renard Burgos on 04-10-2023 Platelet mean volume (Bld) [Entitic vol] 11.1 fL 6.2-12.0 [facility] Determination of erythrocyte mean corpuscular volume (MCV)Ordered By: Renard Burgos on 04-10-2023 MCV (RBC) [Entitic vol] 91.5 fL 80-94 [facility] Hematocrit Auto (Bld) [Volum e fraction]Ordered By: Renard Burgos on 04-10-2023 Hematocrit (Bld) [Volume fraction] 44.3 % 40-54 [facility] Laboratory - Hematology and Cell countsOrdered By: Renard Burgos on 04-10-2023 Erythrocyte distribution width (RBC) [Entitic vol] 41.9 fL 35.1-43.9 [facility] Erythrocyte distribution width (RBC) [Ratio] 12.6 % 11.6-14.6 [facility] Immature granulocytes/100 WBC (Bld) 0.300 % 0.0-0.9 [facility] Comment on above: IG% - Immature Granu locytes (promyelocytes, myelocytes and metamyelocytes) > 1% indicates that a LEFT SHIFT is Present. MCH (RBC) [Entitic mass] 29.3 pg 27.0-32.0 [facility] Nucleated RBC/100 WBC (Bld) [Ratio] 0 % 0-5 [facility] MCHC Auto (RBC) [Mass/Vol]Or dered By: Renard Burgos on 04-10-2023 MCHC (RBC) [Mass/Vol] 32.1 g/dL 32-36 [facility] Platelets bldOrdered By: Lyubov Burgos on 04-10-2023 Platelets (Bld) [#/Vol] 216 10*3/uL 150-450 [facility] Absolute lymphocyte countOrd ered By: Renard Burgos on 04-03-2023 Lymphocytes Auto (Unsp spec) [#/Vol] 1.91 10*3/uL 0.83-4.51 [facility] Basophil percentageOrdered B y: Renard Burgos on 04-03-2023 Basophils/100 WBC (Bld) 0.5 % 0-1 [facility] Eosinophils/100 WBC (Bld) 0.5 % 0-5 [facility] Neutrophils (Bld) [#/Vol] 5.0 10*3/uL 2.0-7.7 [facility] Neutrophils/100 WBC (Bld) 66.5 % 47-70 [facility] WBC (Bld) [#/Vol] 7.6 10*3/uL 4.4-11.0 [facility] Blood erythrocytes count (nu mber/volume)Ordered By: Renard Burgos on 04-03-2023 RBC (Bld) [#/Vol] 4.62 10*6/uL 4.6-6.2 [facility] Blood hemoglobin measurement (mass/volume)Ordered By: Renard Burgos on 04-03-2023 Hemoglobin (Bld) [Mass/Vol] 13.7 g/dL 13.0-16.5 [facility] Blood lymphocytes/100 leukoc ytesOrdered By: Renard Burgos on 04-03-2023 Lymphocytes/100 WBC (Bld) 25.2 % 19-41 [facility] Blood monocytes/100 leukocyt esOrdered By: Renard Burgos on 04-03-2023 Monocytes/100 WBC (Bld) 6.9 % 0-10 [facility] Blood platelet mean volumeOr dered By: Renard Burgos on 04-03-2023 Platelet mean volume (Bld) [Entitic vol] 10.8 fL 6.2-12.0 [facility] Determination of erythrocyte mean corpuscular volume (MCV)Ordered By: Renard Burgos on 04-03-2023 MCV (RBC) [Entitic vol] 91.6 fL 80-94 [facility] Hematocrit Auto (Bld) [Volum e fraction]Ordered By: Renard Burgos on 04-03-2023 Hematocrit (Bld) [Volume fraction] 42.3 % 40-54 [facility] Laboratory - Hematology and Cell countsOrdered By: Renard Burgos on 04-03-2023 Erythrocyte distribution width (RBC) [Entitic vol] 42.6 fL 35.1-43.9 [facility] Erythrocyte distribution width (RBC) [Ratio] 12.8 % 11.6-14.6 [facility] Immature granulocytes/100 WBC (Bld) 0.400 % 0.0-0.9 [facility] Comment on above: IG% - Immature Granu locytes (promyelocytes, myelocytes and metamyelocytes) > 1% indicates that a LEFT SHIFT is Present. MCH (RBC) [Entitic mass] 29.7 pg 27.0-32.0 [facility] Nucleated RBC/100 WBC (Bld) [Ratio] 0 % 0-5 [facility] MCHC Auto (RBC) [Mass/Vol]Or dered By: Renard Burgos on 04-03-2023 MCHC (RBC) [Mass/Vol] 32.4 g/dL 32-36 [facility] Platelets bldOrdered By: Lyubov Burgos on 04-03-2023 Platelets (Bld) [#/Vol] 216 10*3/uL 150-450 [facility] Absolute lymphocyte countOrd ered By: Renard Burgos on 03-27-2023 Lymphocytes Auto (Unsp spec) [#/Vol] 2.06 10*3/uL 0.83-4.51 [facility] Basophil percentageOrdered B y: Renard Burgos on 03-27-2023 Basophils/100 WBC (Bld) 0.4 % 0-1 [facility] Eosinophils/100 WBC (Bld) 0.2 % 0-5 [facility] Neutrophils (Bld) [#/Vol] 6.3 10*3/uL 2.0-7.7 [facility] Neutrophils/100 WBC (Bld) 68.8 % 47-70 [facility] WBC (Bld) [#/Vol] 9.1 10*3/uL 4.4-11.0 [facility] Blood erythrocytes count (nu mber/volume)Ordered By: Renard Burgos on 03-27-2023 RBC (Bld) [#/Vol] 4.51 10*6/uL 4.6-6.2 [facility] Blood hemoglobin measurement (mass/volume)Ordered By: Renard Burgos on 03-27-2023 Hemoglobin (Bld) [Mass/Vol] 13.2 g/dL 13.0-16.5 [facility] Blood lymphocytes/100 leukoc ytesOrdered By: Renard Burgos on 03-27-2023 Lymphocytes/100 WBC (Bld) 22.6 % 19-41 [facility] Blood monocytes/100 leukocyt esOrdered By: Renard Burgos on 03-27-2023 Monocytes/100 WBC (Bld) 7.3 % 0-10 [facility] Blood platelet mean volumeOr dered By: Renard Burgos on 03-27-2023 Platelet mean volume (Bld) [Entitic vol] 10.8 fL 6.2-12.0 [facility] Determination of erythrocyte mean corpuscular volume (MCV)Ordered By: Renard Burgos on 03-27-2023 MCV (RBC) [Entitic vol] 91.6 fL 80-94 [facility] Hematocrit Auto (Bld) [Volum e fraction]Ordered By: Renard Burgos on 03-27-2023 Hematocrit (Bld) [Volume fraction] 41.3 % 40-54 [facility] Laboratory - Hematology and Cell countsOrdered By: Renard Burgos on 03-27-2023 Erythrocyte distribution width (RBC) [Entitic vol] 42.9 fL 35.1-43.9 [facility] Erythrocyte distribution width (RBC) [Ratio] 12.9 % 11.6-14.6 [facility] Immature granulocytes/100 WBC (Bld) 0.700 % 0.0-0.9 [facility] Comment on above: IG% - Immature Granu locytes (promyelocytes, myelocytes and metamyelocytes) > 1% indicates that a LEFT SHIFT is Present. MCH (RBC) [Entitic mass] 29.3 pg 27.0-32.0 [facility] Nucleated RBC/100 WBC (Bld) [Ratio] 0 % 0-5 [facility] MCHC Auto (RBC) [Mass/Vol]Or dered By: Renard Burgos on 03-27-2023 MCHC (RBC) [Mass/Vol] 32.0 g/dL 32-36 [facility] Platelets bldOrdered By: Lyubov Burgos on 03-27-2023 Platelets (Bld) [#/Vol] 205 10*3/uL 150-450 [facility] Absolute lymphocyte countOrd ered By: Renard Burgos on 03-20-2023 Lymphocytes Auto (Unsp spec) [#/Vol] 1.89 10*3/uL 0.83-4.51 [facility] Basophil percentageOrdered B y: Renard Burgos on 03-20-2023 Basophils/100 WBC (Bld) 0.5 % 0-1 [facility] Chloride [Moles/Vol] 107 mmol/L 98-107 [facility] Eosinophils/100 WBC (Bld) 0.4 % 0-5 [facility] Glucose [Mass/Vol] 124 mg/dL 74-106 [facility] Comment on above: Fasting Glucose resu lt from 100 to 125 mg/dL suggests IMPAIRED HOMEOSTASIS per A.D.A. criteria. Neutrophils (Bld) [#/Vol] 4.8 10*3/uL 2.0-7.7 [facility] Neutrophils/100 WBC (Bld) 64.9 % 47-70 [facility] Potassium [Moles/Vol] 3.6 mmol/L 3.5-5.1 [facility] Sodium [Moles/Vol] 142 mmol/L 136-145 [facility] WBC (Bld) [#/Vol] 7.4 10*3/uL 4.4-11.0 [facility] Blood erythrocytes count (nu mber/volume)Ordered By: Renard Burgos on 03-20-2023 RBC (Bld) [#/Vol] 4.63 10*6/uL 4.6-6.2 [facility] Blood hemoglobin measurement (mass/volume)Ordered By: Renard Burgos on 03-20-2023 Hemoglobin (Bld) [Mass/Vol] 13.7 g/dL 13.0-16.5 [facility] Blood lymphocytes/100 leukoc ytesOrdered By: Renard Burgos on 03-20-2023 Lymphocytes/100 WBC (Bld) 25.7 % 19-41 [facility] Blood monocytes/100 leukocyt esOrdered By: Renard Burgos on 03-20-2023 Monocytes/100 WBC (Bld) 8.2 % 0-10 [facility] Blood platelet mean volumeOr dered By: Renard Burgos on 03-20-2023 Platelet mean volume (Bld) [Entitic vol] 10.7 fL 6.2-12.0 [facility] Determination of erythrocyte mean corpuscular volume (MCV)Ordered By: Renard Burgos on 03-20-2023 MCV (RBC) [Entitic vol] 90.9 fL 80-94 [facility] Hematocrit Auto (Bld) [Volum e fraction]Ordered By: Renard Burgos on 03-20-2023 Hematocrit (Bld) [Volume fraction] 42.1 % 40-54 [facility] Laboratory - Chemistry and C hemistry - challengeOrdered By: Renard Burgos on 03-20-2023 CO2 [Moles/Vol] 29.0 mmol/L 21.0-32.0 [facility] Urea nitrogen/Creatinine [Mass ratio] 30.7 mg/mg 10-20 [facility] Laboratory - Hematology and Cell countsOrdered By: Renard Burgos on 03-20-2023 Erythrocyte distribution width (RBC) [Entitic vol] 43.0 fL 35.1-43.9 [facility] Erythrocyte distribution width (RBC) [Ratio] 12.9 % 11.6-14.6 [facility] Immature granulocytes/100 WBC (Bld) 0.300 % 0.0-0.9 [facility] Comment on above: IG% - Immature Granu locytes (promyelocytes, myelocytes and metamyelocytes) > 1% indicates that a LEFT SHIFT is Present. MCH (RBC) [Entitic mass] 29.6 pg 27.0-32.0 [facility] Nucleated RBC/100 WBC (Bld) [Ratio] 0 % 0-5 [facility] MCHC Auto (RBC) [Mass/Vol]Or dered By: Renard Burgos on 03-20-2023 MCHC (RBC) [Mass/Vol] 32.5 g/dL 32-36 [facility] No Panel InformationOrdered By: Renard Burgos on 03-20-2023 Estimated GFR (MDRD) Amer 178 mL/min >60 [facility] Comment on above: GFR Calc Estimated GFR (MDRD) Non-Af Amer 147 mL/min >60 [facility] Comment on above: Non- GFR Calc Platelets bldOrdered By: Pet lizy Burgos on 03-20-2023 Platelets (Bld) [#/Vol] 208 10*3/uL 150-450 [facility] Serum or plasma calcium gordy urement (mass/volume)Ordered By: Renard Burgos on 03-20-2023 Calcium [Mass/Vol] 8.1 mg/dL 8.5-10.1 [facility] Serum or plasma creatinine m easurement [...] 03-20-2023 Urea nitrogen [Mass/Vol] 18 mg/dL 7-18 [facility] Thin prep Papanicolaou smear with manual screeningOrdered By: Renard Burgos on 03-20-2023 Thin prep Papanicolaou smear with manual screening 6 5-15 [facility] Erythrocyte sedimentation ra teOrdered By: Renard Burgos on 03-16-2023 ESR (Bld) [Velocity] 3 mm/h 0-20 [facility] Absolute lymphocyte countOrd ered By: Renard Burgos on 03-13-2023 Lymphocytes Auto (Unsp spec) [#/Vol] 2.36 10*3/uL 0.83-4.51 [facility] Basophil percentageOrdered B y: Renard Burgos on 03-13-2023 Basophils/100 WBC (Bld) 0.5 % 0-1 [facility] Eosinophils/100 WBC (Bld) 0.5 % 0-5 [facility] Neutrophils (Bld) [#/Vol] 5.2 10*3/uL 2.0-7.7 [facility] Neutrophils/100 WBC (Bld) 61.3 % 47-70 [facility] WBC (Bld) [#/Vol] 8.5 10*3/uL 4.4-11.0 [facility] Blood erythrocytes count (nu mber/volume)Ordered By: Renard Burgos on 03-13-2023 RBC (Bld) [#/Vol] 4.55 10*6/uL 4.6-6.2 [facility] Blood hemoglobin measurement (mass/volume)Ordered By: Renard Burgos on 03-13-2023 Hemoglobin (Bld) [Mass/Vol] 13.4 g/dL 13.0-16.5 [facility] Blood lymphocytes/100 leukoc ytesOrdered By: Renard Burgos on 03-13-2023 Lymphocytes/100 WBC (Bld) 27.7 % 19-41 [facility] Blood monocytes/100 leukocyt esOrdered By: Renard Burgos on 03-13-2023 Monocytes/100 WBC (Bld) 9.5 % 0-10 [facility] Blood platelet mean volumeOr dered By: Renard Burgos on 03-13-2023 Platelet mean volume (Bld) [Entitic vol] 10.6 fL 6.2-12.0 [facility] Determination of erythrocyte mean corpuscular volume (MCV)Ordered By: Renard Burgos on 03-13-2023 MCV (RBC) [Entitic vol] 93.4 fL 80-94 [facility] Hematocrit Auto (Bld) [Volum e fraction]Ordered By: Renard Burgos on 03-13-2023 Hematocrit (Bld) [Volume fraction] 42.5 % 40-54 [facility] - Hematology and Cell countsOrdered By: Renard Burgos on 03-13-2023 Erythrocyte distribution width (RBC) [Entitic vol] 44.1 fL 35.1-43.9 [facility] Erythrocyte distribution width (RBC) [Ratio] 13.0 % 11.6-14.6 [facility] Immature granulocytes/100 WBC (Bld) 0.500 % 0.0-0.9 [facility] Comment on above: IG% - Immature Granu locytes (promyelocytes, myelocytes and metamyelocytes) > 1% indicates that a LEFT SHIFT is Present. MCH (RBC) [Entitic mass] 29.5 pg 27.0-32.0 [facility] Nucleated RBC/100 WBC (Bld) [Ratio] 0 % 0-5 [facility] MCHC Auto (RBC) [Mass/Vol]Or dered By: Renard Burgos on 03-13-2023 MCHC (RBC) [Mass/Vol] 31.5 g/dL 32-36 [facility] Platelets bldOrdered By: Lyubov Hensleyrustam on 03-13-2023 Platelets (Bld) [#/Vol] 200 10*3/uL 150-450 [facility] Absolute lymphocyte countOrd ered By: Renard Hensleyrustam on 03-06-2023 Lymphocytes Auto (Unsp spec) [#/Vol] 1.80 10*3/uL 0.83-4.51 [facility] Basophil percentageOrdered B y: Renard Loretta on 03-06-2023 Basophils/100 WBC (Bld) 0.5 % 0-1 [facility] Bilirubin [Mass/Vol] 0.40 mg/dL 0.20-1.00 [facility] Comment on above: For patients on eltr ombopag therapy, use of Dimension [place] TBIL is not recommended. Chloride [Moles/Vol] 107 mmol/L 98-107 [facility] Cholesterol [Mass/Vol] 118 mg/dL <200 [facility] Comment on above: <200 mg/dL Desirable 200-240 mg/dL Borderline >240 mg/dL High Risk Eosinophils/100 WBC (Bld) 0.5 % 0-5 [facility] Glucose [Mass/Vol] 107 mg/dL 74-106 [facility] Comment on above: Fasting Glucose resu lt from 100 to 125 mg/dL suggests IMPAIRED HOMEOSTASIS per A.D.A. criteria. Neutrophils (Bld) [#/Vol] 5.5 10*3/uL 2.0-7.7 [facility] Neutrophils/100 WBC (Bld) 68.0 % 47-70 [facility] Potassium [Moles/Vol] 3.8 mmol/L 3.5-5.1 [facility] Protein [Mass/Vol] 6.3 g/dL 6.4-8.2 [facility] Sodium [Moles/Vol] 141 mmol/L 136-145 [facility] Triglyceride [Mass/Vol] 185 mg/dL <199 [facility] Comment on above: The drugs N-Acetylcy steine and Metamizole may falsely depress this assay.Serum Triglycerides Reference Interval Normal <150 mg/dL Borderline high 150 - 199 mg/dL High 200 - 499 mg/dL Very High > or = 500 mg/dL WBC (Bld) [#/Vol] 8.1 10*3/uL 4.4-11.0 [facility] Blood erythrocytes count (nu mber/volume)Ordered By: Renard Burgos on 03-06-2023 RBC (Bld) [#/Vol] 4.69 10*6/uL 4.6-6.2 [facility] Blood hemoglobin measurement (mass/volume)Ordered By: Renard Burgos on 03-06-2023 Hemoglobin (Bld) [Mass/Vol] 14.0 g/dL 13.0-16.5 [facility] Blood lymphocytes/100 leukoc ytesOrdered By: Renard Burgos on 03-06-2023 Lymphocytes/100 WBC (Bld) 22.3 % 19-41 [facility] Blood monocytes/100 leukocyt esOrdered By: Renard Burgos on 03-06-2023 Monocytes/100 WBC (Bld) 8.2 % 0-10 [facility] Blood platelet mean volumeOr dered By: Renard Burgos on 03-06-2023 Platelet mean volume (Bld) [Entitic vol] 10.9 fL 6.2-12.0 [facility] Determination of erythrocyte mean corpuscular volume (MCV)Ordered By: Renard Burgos on 03-06-2023 MCV (RBC) [Entitic vol] 91.9 fL 80-94 [facility] Hematocrit Auto (Bld) [Volum e fraction]Ordered By: Renard Burgos on 03-06-2023 Hematocrit (Bld) [Volume fraction] 43.1 % 40-54 [facility] Laboratory - Chemistry and C hemistry - challengeOrdered By: Renard Burgos on 03-06-2023 ALP [Catalytic activity/Vol] 120 U/L 45-117 [facility] ALT [Catalytic activity/Vol] 20 U/L 16-61 [facility] CO2 [Moles/Vol] 30.0 mmol/L 21.0-32.0 [facility] Globulin (S) [Mass/Vol] 3.3 g/dL 2.2-4.2 [facility] Urea nitrogen/Creatinine [Mass ratio] 27.1 mg/mg 10-20 [facility] Laboratory - Hematology and Cell countsOrdered By: Renard Burgos on 03-06-2023 Erythrocyte distribution width (RBC) [Entitic vol] 42.5 fL 35.1-43.9 [facility] Erythrocyte distribution width (RBC) [Ratio] 12.9 % 11.6-14.6 [facility] Immature granulocytes/100 WBC (Bld) 0.500 % 0.0-0.9 [facility] Comment on above: IG% - Immature Granu locytes (promyelocytes, myelocytes and metamyelocytes) > 1% indicates that a LEFT SHIFT is Present. MCH (RBC) [Entitic mass] 29.9 pg 27.0-32.0 [facility] Nucleated RBC/100 WBC (Bld) [Ratio] 0 % 0-5 [facility] MCHC Auto (RBC) [Mass/Vol]Or dered By: Renard Burgos on 03-06-2023 MCHC (RBC) [Mass/Vol] 32.5 g/dL 32-36 [facility] No Panel InformationOrdered By: Renard Burgos on 03-06-2023 Estimated GFR (MDRD) Amer 165 mL/min >60 [facility] Comment on above: GFR Calc Estimated GFR (MDRD) Non-Af Amer 136 mL/min >60 [facility] Comment on above: Non- GFR Calc Platelets bldOrdered By: Lyubov Burgos on 03-06-2023 Platelets (Bld) [#/Vol] 232 10*3/uL 150-450 [facility] Serum or plasma albumin gordy urement (mass/volume)Ordered By: Renard Burgos on 03-06-2023 Albumin [Mass/Vol] 3.0 g/dL 3.2-5.0 [facility] Serum or plasma albumin/glob ulin mass ratioOrdered By: Renard Burgos on 03-06-2023 Albumin/Globulin [Mass ratio] 0.9 {ratio} 0.9-2.4 [facility] Serum or plasma calcium gordy urement (mass/volume)Ordered By: Renard Burgos on 03-06-2023 Calcium [Mass/Vol] 8.2 mg/dL 8.5-10.1 [facility] Serum or plasma cholesterol in HDL measurement (mass/volume)Ordered By: Renard Burgos on 03-06-2023 Cholesterol in HDL [Mass/Vol] 25 mg/dL >40 [facility] Comment on above: The drugs N-Acetylcy steine and Metamizole may falsely depress this assay. Reference Range HDL <40 mg/dL Low HDL Cholesterol HDL >or= 60 mg/dL High HDL Cholesterol Serum or plasma cholesterol in VLDL measurement (mass/volume)Ordered By: Renard Burgos on 03-06-2023 Cholesterol in VLDL [Mass/Vol] 37 mg/dL 5-40 [facility] Serum or plasma creatinine m easurement [...] Cholesterol in LDL [Mass/Vol] 56 mg/dL 0-130 [facility] Serum or plasma urea nitroge n measurement (mass/volume)Ordered By: Renard Burgos on 03-06-2023 Urea nitrogen [Mass/Vol] 17 mg/dL 7-18 [facility] Thin prep Papanicolaou smear with manual screeningOrdered By: Renard Burgos on 03-06-2023 Thin prep Papanicolaou smear with manual screening 10 U/L 15-37 [facility] Thin prep Papanicolaou smear with manual screening 4 5-15 [facility] Absolute lymphocyte countOrd ered By: Renard Burgos on 02-27-2023 Lymphocytes Auto (Unsp spec) [#/Vol] 2.13 10*3/uL 0.83-4.51 [facility] Basophil percentageOrdered B y: Renard Burgos on 02-27-2023 Basophils/100 WBC (Bld) 0.6 % 0-1 [facility] Eosinophils/100 WBC (Bld) 0.6 % 0-5 [facility] Neutrophils (Bld) [#/Vol] 5.1 10*3/uL 2.0-7.7 [facility] Neutrophils/100 WBC (Bld) 63.3 % 47-70 [facility] WBC (Bld) [#/Vol] 8.1 10*3/uL 4.4-11.0 [facility] Blood erythrocytes count (nu mber/volume)Ordered By: Renard Burgos on 02-27-2023 RBC (Bld) [#/Vol] 4.54 10*6/uL 4.6-6.2 [facility] Blood hemoglobin measurement (mass/volume)Ordered By: Renard Burgos on 02-27-2023 Hemoglobin (Bld) [Mass/Vol] 13.7 g/dL 13.0-16.5 [facility] Blood lymphocytes/100 leukoc ytesOrdered By: Renard Burgos on 02-27-2023 Lymphocytes/100 WBC (Bld) 26.4 % 19-41 [facility] Blood monocytes/100 leukocyt esOrdered By: Renard Burgos on 02-27-2023 Monocytes/100 WBC (Bld) 8.7 % 0-10 [facility] Blood platelet mean volumeOr dered By: Renard Burgos on 02-27-2023 Platelet mean volume (Bld) [Entitic vol] 10.8 fL 6.2-12.0 [facility] Determination of erythrocyte mean corpuscular volume (MCV)Ordered By: Renard Burgos on 02-27-2023 MCV (RBC) [Entitic vol] 89.9 fL 80-94 [facility] Hematocrit Auto (Bld) [Volum e fraction]Ordered By: Renard Burgos on 02-27-2023 Hematocrit (Bld) [Volume fraction] 40.8 % 40-54 [facility] Laboratory - Hematology and Cell countsOrdered By: Renard Burgos on 02-27-2023 Erythrocyte distribution width (RBC) [Entitic vol] 41.0 fL 35.1-43.9 [facility] Erythrocyte distribution width (RBC) [Ratio] 12.5 % 11.6-14.6 [facility] Immature granulocytes/100 WBC (Bld) 0.400 % 0.0-0.9 [facility] Comment on above: IG% - Immature Granu locytes (promyelocytes, myelocytes and metamyelocytes) > 1% indicates that a LEFT SHIFT is Present. MCH (RBC) [Entitic mass] 30.2 pg 27.0-32.0 [facility] Nucleated RBC/100 WBC (Bld) [Ratio] 0 % 0-5 [facility] MCHC Auto (RBC) [Mass/Vol]Or dered By: Renard Burgos on 02-27-2023 MCHC (RBC) [Mass/Vol] 33.6 g/dL 32-36 [facility] Platelets bldOrdered By: Lyubov Burgos on 02-27-2023 Platelets (Bld) [#/Vol] 182 10*3/uL 150-450 [facility] Absolute lymphocyte countOrd ered By: Renard Burgos on 02-20-2023 Lymphocytes Auto (Unsp spec) [#/Vol] 2.23 10*3/uL 0.83-4.51 [facility] Basophil percentageOrdered B y: Renard Burgos on 02-20-2023 Basophils/100 WBC (Bld) 0.3 % 0-1 [facility] Eosinophils/100 WBC (Bld) 0.7 % 0-5 [facility] Neutrophils (Bld) [#/Vol] 5.9 10*3/uL 2.0-7.7 [facility] Neutrophils/100 WBC (Bld) 65.7 % 47-70 [facility] WBC (Bld) [#/Vol] 9.0 10*3/uL 4.4-11.0 [facility] Blood erythrocytes count (nu mber/volume)Ordered By: Renard Burgos on 02-20-2023 RBC (Bld) [#/Vol] 4.46 10*6/uL 4.6-6.2 [facility] Blood hemoglobin measurement (mass/volume)Ordered By: Renard Burgos on 02-20-2023 Hemoglobin (Bld) [Mass/Vol] 13.3 g/dL 13.0-16.5 [facility] Blood lymphocytes/100 leukoc ytesOrdered By: Renard Burgos on 02-20-2023 Lymphocytes/100 WBC (Bld) 24.7 % 19-41 [facility] Blood monocytes/100 leukocyt esOrdered By: Renard Burgos on 02-20-2023 Monocytes/100 WBC (Bld) 8.0 % 0-10 [facility] Blood platelet mean volumeOr dered By: Renard Burgos on 02-20-2023 Platelet mean volume (Bld) [Entitic vol] 10.7 fL 6.2-12.0 [facility] Determination of erythrocyte mean corpuscular volume (MCV)Ordered By: Renard Burgos on 02-20-2023 MCV (RBC) [Entitic vol] 90.6 fL 80-94 [facility] Hematocrit Auto (Bld) [Volum e fraction]Ordered By: Renard Burgos on 02-20-2023 Hematocrit (Bld) [Volume fraction] 40.4 % 40-54 [facility] - Hematology and Cell countsOrdered By: Renard Burgos on 02-20-2023 Erythrocyte distribution width (RBC) [Entitic vol] 41.9 fL 35.1-43.9 [facility] Erythrocyte distribution width (RBC) [Ratio] 12.8 % 11.6-14.6 [facility] Immature granulocytes/100 WBC (Bld) 0.600 % 0.0-0.9 [facility] Comment on above: IG% - Immature Granu locytes (promyelocytes, myelocytes and metamyelocytes) > 1% indicates that a LEFT SHIFT is Present. MCH (RBC) [Entitic mass] 29.8 pg 27.0-32.0 [facility] Nucleated RBC/100 WBC (Bld) [Ratio] 0 % 0-5 [facility] MCHC Auto (RBC) [Mass/Vol]Or dered By: Renard Burgos on 02-20-2023 MCHC (RBC) [Mass/Vol] 32.9 g/dL 32-36 [facility] Platelets bldOrdered By: Lyubov Burgos on 02-20-2023 Platelets (Bld) [#/Vol] 220 10*3/uL 150-450 [facility] Absolute lymphocyte countOrd ered By: Renard Burgos on 02-13-2023 Lymphocytes Auto (Unsp spec) [#/Vol] 2.01 10*3/uL 0.83-4.51 [facility] Basophil percentageOrdered B y: Renard Burgos on 02-13-2023 Basophils/100 WBC (Bld) 0.7 % 0-1 [facility] Eosinophils/100 WBC (Bld) 0.5 % 0-5 [facility] Neutrophils (Bld) [#/Vol] 4.7 10*3/uL 2.0-7.7 [facility] Neutrophils/100 WBC (Bld) 63.3 % 47-70 [facility] WBC (Bld) [#/Vol] 7.4 10*3/uL 4.4-11.0 [facility] Blood erythrocytes count (nu mber/volume)Ordered By: Renard Burgos on 02-13-2023 RBC (Bld) [#/Vol] 4.46 10*6/uL 4.6-6.2 [facility] Blood hemoglobin measurement (mass/volume)Ordered By: Renard Burgos on 02-13-2023 Hemoglobin (Bld) [Mass/Vol] 13.6 g/dL 13.0-16.5 [facility] Blood lymphocytes/100 leukoc ytesOrdered By: Renard Burgos on 02-13-2023 Lymphocytes/100 WBC (Bld) 27.0 % 19-41 [facility] Blood monocytes/100 leukocyt esOrdered By: Renard Burgos on 02-13-2023 Monocytes/100 WBC (Bld) 8.1 % 0-10 [facility] Blood platelet mean volumeOr dered By: Renard Burgos on 02-13-2023 Platelet mean volume (Bld) [Entitic vol] 10.7 fL 6.2-12.0 [facility] Determination of erythrocyte mean corpuscular volume (MCV)Ordered By: Renard Burgos on 02-13-2023 MCV (RBC) [Entitic vol] 92.6 fL 80-94 [facility] Hematocrit Auto (Bld) [Volum e fraction]Ordered By: Renard Burgos on 02-13-2023 Hematocrit (Bld) [Volume fraction] 41.3 % 40-54 [facility] - Hematology and Cell countsOrdered By: Renard Burgos on 02-13-2023 Erythrocyte distribution width (RBC) [Entitic vol] 42.7 fL 35.1-43.9 [facility] Erythrocyte distribution width (RBC) [Ratio] 12.6 % 11.6-14.6 [facility] Immature granulocytes/100 WBC (Bld) 0.400 % 0.0-0.9 [facility] Comment on above: IG% - Immature Granu locytes (promyelocytes, myelocytes and metamyelocytes) > 1% indicates that a LEFT SHIFT is Present. MCH (RBC) [Entitic mass] 30.5 pg 27.0-32.0 [facility] Nucleated RBC/100 WBC (Bld) [Ratio] 0 % 0-5 [facility] MCHC Auto (RBC) [Mass/Vol]Or dered By: Renard Burgos on 02-13-2023 MCHC (RBC) [Mass/Vol] 32.9 g/dL 32-36 [facility] Platelets bldOrdered By: Lyubov Burgos on 02-13-2023 Platelets (Bld) [#/Vol] 187 10*3/uL 150-450 [facility] Absolute lymphocyte countOrd ered By: Renard Burgos on 02-06-2023 Lymphocytes Auto (Unsp spec) [#/Vol] 2.28 10*3/uL 0.83-4.51 [facility] Basophil percentageOrdered B y: Renard Burgos on 02-06-2023 Basophils/100 WBC (Bld) 0.5 % 0-1 [facility] Eosinophils/100 WBC (Bld) 0.7 % 0-5 [facility] Neutrophils (Bld) [#/Vol] 5.5 10*3/uL 2.0-7.7 [facility] Neutrophils/100 WBC (Bld) 63.7 % 47-70 [facility] WBC (Bld) [#/Vol] 8.6 10*3/uL 4.4-11.0 [facility] Blood erythrocytes count (nu mber/volume)Ordered By: Renard Burgos on 02-06-2023 RBC (Bld) [#/Vol] 4.71 10*6/uL 4.6-6.2 [facility] Blood hemoglobin measurement (mass/volume)Ordered By: Renard Burgos on 02-06-2023 Hemoglobin (Bld) [Mass/Vol] 14.1 g/dL 13.0-16.5 [facility] Blood lymphocytes/100 leukoc ytesOrdered By: Renard Burgos on 02-06-2023 Lymphocytes/100 WBC (Bld) 26.4 % 19-41 [facility] Blood monocytes/100 leukocyt esOrdered By: Renard Burgos on 02-06-2023 Monocytes/100 WBC (Bld) 8.2 % 0-10 [facility] Blood platelet mean volumeOr dered By: Renard Burgos on 02-06-2023 Platelet mean volume (Bld) [Entitic vol] 11.0 fL 6.2-12.0 [facility] Determination of erythrocyte mean corpuscular volume (MCV)Ordered By: Renard Burgos on 02-06-2023 MCV (RBC) [Entitic vol] 94.5 fL 80-94 [facility] Hematocrit Auto (Bld) [Volum e fraction]Ordered By: Renard Burgos on 02-06-2023 Hematocrit (Bld) [Volume fraction] 44.5 % 40-54 [facility] - Hematology and Cell countsOrdered By: Renard Burgos on 02-06-2023 Erythrocyte distribution width (RBC) [Entitic vol] 43.5 fL 35.1-43.9 [facility] Erythrocyte distribution width (RBC) [Ratio] 12.7 % 11.6-14.6 [facility] Immature granulocytes/100 WBC (Bld) 0.500 % 0.0-0.9 [facility] Comment on above: IG% - Immature Granu locytes (promyelocytes, myelocytes and metamyelocytes) > 1% indicates that a LEFT SHIFT is Present. MCH (RBC) [Entitic mass] 29.9 pg 27.0-32.0 [facility] Nucleated RBC/100 WBC (Bld) [Ratio] 0 % 0-5 [facility] MCHC Auto (RBC) [Mass/Vol]Or dered By: Renard Burgos on 02-06-2023 MCHC (RBC) [Mass/Vol] 31.7 g/dL 32-36 [facility] Platelets bldOrdered By: Lyubov Burgos on 02-06-2023 Platelets (Bld) [#/Vol] 196 10*3/uL 150-450 [facility] Absolute lymphocyte countOrd ered By: Renard Burgos on 01-30-2023 Lymphocytes Auto (Unsp spec) [#/Vol] 1.91 10*3/uL 0.83-4.51 [facility] Basophil percentageOrdered B y: Renard Burgos on 01-30-2023 Basophils/100 WBC (Bld) 0.5 % 0-1 [facility] Eosinophils/100 WBC (Bld) 0.5 % 0-5 [facility] Neutrophils (Bld) [#/Vol] 6.0 10*3/uL 2.0-7.7 [facility] Neutrophils/100 WBC (Bld) 69.4 % 47-70 [facility] WBC (Bld) [#/Vol] 8.7 10*3/uL 4.4-11.0 [facility] Basophil percentage 0 SEEN /hpf 0-5 [facility] Bilirubin Test strip Ql (U)O rdered By: Renard Burgos on 01-30-2023 Bilirubin Ql (U) Negative Negative [facility] Blood erythrocytes count (nu mber/volume)Ordered By: Renard Burgos on 01-30-2023 RBC (Bld) [#/Vol] 4.50 10*6/uL 4.6-6.2 [facility] Blood hemoglobin measurement (mass/volume)Ordered By: Renard Burgos on 01-30-2023 Hemoglobin (Bld) [Mass/Vol] 13.5 g/dL 13.0-16.5 [facility] Blood lymphocytes/100 leukoc ytesOrdered By: Renard Burgos on 01-30-2023 Lymphocytes/100 WBC (Bld) 22.1 % 19-41 [facility] Blood monocytes/100 leukocyt esOrdered By: Renard Burgos on 01-30-2023 Monocytes/100 WBC (Bld) 7.2 % 0-10 [facility] Blood platelet mean volumeOr dered By: Renard Burgos on 01-30-2023 Platelet mean volume (Bld) [Entitic vol] 11.1 fL 6.2-12.0 [facility] Culture, urineOrdered By: Garrick Bhatt on 01-30-2023 Bacteria identified Cx Nom (U) Positive [facility] Determination of erythrocyte mean corpuscular volume (MCV)Ordered By: Renard Burgos on 01-30-2023 MCV (RBC) [Entitic vol] 91.3 fL 80-94 [facility] Hematocrit Auto (Bld) [Volum e fraction]Ordered By: Renard Burgos on 01-30-2023 Hematocrit (Bld) [Volume fraction] 41.1 % 40-54 [facility] Ketones Test strip Ql (U)Ord ered By: Renard Burgos on 01-30-2023 Ketones Ql (U) Negative Negative [facility] Laboratory - Hematology and Cell countsOrdered By: Renard Burgos on 01-30-2023 Erythrocyte distribution width (RBC) [Entitic vol] 41.4 fL 35.1-43.9 [facility] Erythrocyte distribution width (RBC) [Ratio] 12.6 % 11.6-14.6 [facility] Immature granulocytes/100 WBC (Bld) 0.300 % 0.0-0.9 [facility] Comment on above: IG% - Immature Granu locytes (promyelocytes, myelocytes and metamyelocytes) > 1% indicates that a LEFT SHIFT is Present. MCH (RBC) [Entitic mass] 30.0 pg 27.0-32.0 [facility] Nucleated RBC/100 WBC (Bld) [Ratio] 0 % 0-5 [facility] MCHC Auto (RBC) [Mass/Vol]Or dered By: [...] on 01-30-2023 Nitrite Ql (U) Negative Negative [facility] No Panel InformationOrdered By: Renard Burgos on 01-30-2023 Prostate Specific Antigen Screen 4.18 ng/mL 0.00-4.00 [facility] Comment on above: This test was perfor med using the TPSA assay method for the[employer] chemistry system. Values obtained with differentassay methods cannot be used interchangably.When changing PSA assays in the course of monitoring apatient, additional sequential testing should be carriedout to confirm baseline values. Platelets bldOrdered By: Lyubov Burgos on 01-30-2023 Platelets (Bld) [#/Vol] 205 10*3/uL 150-450 [facility] Protein Test strip Ql (U)Ord ered By: Renard Burgos on 01-30-2023 Protein Ql (U) Negative Negative [facility] Squamous epithelial cells de tection in urine sediment by light microscopyOrdered By: Renard Burgos on 01-30-2023 Epithelial cells.squamous LM Ql (Urine sed) 0-5 SEEN /hpf 0-5 [facility] Urine blood detectionOrdered By: Renard Burgos on 01-30-2023 RBC Ql (U) Negative Negative [facility] RBC Ql (U) 0 SEEN /hpf 0-5 [facility] Urine clarityOrdered By: Lyubov Burgos on 01-30-2023 Clarity (U) Clear Clear [facility] Urine color determinationOrd ered By: Renard Burgos on 01-30-2023 Color (U) Yellow Yellow [facility] Urine glucose detectionOrder ed By: Renard Burgos on 01-30-2023 Glucose Ql (U) Normal mg/dl Normal [facility] Urine leukocyte esterase det ection by dipstickOrdered By: Renard Burgos on 01-30-2023 Leukocyte esterase Test strip Ql (U) Negative Negative [facility] Urine pHOrdered By: Renard ocampo on 01-30-2023 pH (U) 8.0 [pH] 5.0 - 8.0 [facility] Urine sediment bacteria coun t by microscopy (number/high power field)Ordered By: Renard Burgos on 01-30-2023 Bacteria LM.HPF (Urine sed) [#/Area] 0 /[HPF] None Seen [facility] Urine specific gravity measu rementOrdered By: Renard Burgos on 01-30-2023 Specific gravity (U) [Rel density] 1.010 1.002-1.030 [facility] Urobilinogen Auto test strip Ql (U)Ordered By: Renard Burgos on 01-30-2023 Urobilinogen Ql (U) Normal mg/dl Normal [facility] Absolute lymphocyte countOrd ered By: Renard Burgos on 01-23-2023 Lymphocytes Auto (Unsp spec) [#/Vol] 2.32 10*3/uL 0.83-4.51 [facility] Basophil percentageOrdered B y: Renard Burgos on 01-23-2023 Basophils/100 WBC (Bld) 0.6 % 0-1 [facility] Eosinophils/100 WBC (Bld) 0.4 % 0-5 [facility] Neutrophils (Bld) [#/Vol] 5.3 10*3/uL 2.0-7.7 [facility] Neutrophils/100 WBC (Bld) 62.7 % 47-70 [facility] WBC (Bld) [#/Vol] 8.4 10*3/uL 4.4-11.0 [facility] Blood erythrocytes count (nu mber/volume)Ordered By: Renard Burgos on 01-23-2023 RBC (Bld) [#/Vol] 4.49 10*6/uL 4.6-6.2 [facility] Blood hemoglobin measurement (mass/volume)Ordered By: Renard Burgos on 01-23-2023 Hemoglobin (Bld) [Mass/Vol] 13.6 g/dL 13.0-16.5 [facility] Blood lymphocytes/100 leukoc ytesOrdered By: Renard Burgos on 01-23-2023 Lymphocytes/100 WBC (Bld) 27.5 % 19-41 [facility] Blood monocytes/100 leukocyt esOrdered By: Renard Burgos on 01-23-2023 Monocytes/100 WBC (Bld) 8.2 % 0-10 [facility] Blood platelet mean volumeOr dered By: Renard Burgos on 01-23-2023 Platelet mean volume (Bld) [Entitic vol] 10.9 fL 6.2-12.0 [facility] Determination of erythrocyte mean corpuscular volume (MCV)Ordered By: Renard Burgos on 01-23-2023 MCV (RBC) [Entitic vol] 93.1 fL 80-94 [facility] Hematocrit Auto (Bld) [Volum e fraction]Ordered By: Renard Burgos on 01-23-2023 Hematocrit (Bld) [Volume fraction] 41.8 % 40-54 [facility] - Hematology and Cell countsOrdered By: Renard Burgos on 01-23-2023 Erythrocyte distribution width (RBC) [Entitic vol] 42.7 fL 35.1-43.9 [facility] Erythrocyte distribution width (RBC) [Ratio] 12.6 % 11.6-14.6 [facility] Immature granulocytes/100 WBC (Bld) 0.600 % 0.0-0.9 [facility] Comment on above: IG% - Immature Granu locytes (promyelocytes, myelocytes and metamyelocytes) > 1% indicates that a LEFT SHIFT is Present. MCH (RBC) [Entitic mass] 30.3 pg 27.0-32.0 [facility] Nucleated RBC/100 WBC (Bld) [Ratio] 0 % 0-5 [facility] MCHC Auto (RBC) [Mass/Vol]Or dered By: Renard Burgos on 01-23-2023 MCHC (RBC) [Mass/Vol] 32.5 g/dL 32-36 [facility] Platelets bldOrdered By: Lyubov Burgos on 01-23-2023 Platelets (Bld) [#/Vol] 220 10*3/uL 150-450 [facility] Absolute lymphocyte countOrd ered By: Renard Burgos on 01-16-2023 Lymphocytes Auto (Unsp spec) [#/Vol] 1.80 10*3/uL 0.83-4.51 [facility] Basophil percentageOrdered B y: Renard Burgos on 01-16-2023 Basophils/100 WBC (Bld) 0.4 % 0-1 [facility] Eosinophils/100 WBC (Bld) 0.4 % 0-5 [facility] Neutrophils (Bld) [#/Vol] 7.2 10*3/uL 2.0-7.7 [facility] Neutrophils/100 WBC (Bld) 73.5 % 47-70 [facility] WBC (Bld) [#/Vol] 9.8 10*3/uL 4.4-11.0 [facility] Blood erythrocytes count (nu mber/volume)Ordered By: Renard Burgos on 01-16-2023 RBC (Bld) [#/Vol] 4.77 10*6/uL 4.6-6.2 [facility] Blood hemoglobin measurement (mass/volume)Ordered By: Renard Burgos on 01-16-2023 Hemoglobin (Bld) [Mass/Vol] 14.1 g/dL 13.0-16.5 [facility] Blood lymphocytes/100 leukoc ytesOrdered By: Renard Burgos on 01-16-2023 Lymphocytes/100 WBC (Bld) 18.4 % 19-41 [facility] Blood monocytes/100 leukocyt esOrdered By: Renard Burgos on 01-16-2023 Monocytes/100 WBC (Bld) 6.9 % 0-10 [facility] Blood platelet mean volumeOr dered By: Renard Burgos on 01-16-2023 Platelet mean volume (Bld) [Entitic vol] 10.6 fL 6.2-12.0 [facility] Determination of erythrocyte mean corpuscular volume (MCV)Ordered By: Renard Burgos on 01-16-2023 MCV (RBC) [Entitic vol] 92.5 fL 80-94 [facility] Hematocrit Auto (Bld) [Volum e fraction]Ordered By: Renard Burgos on 01-16-2023 Hematocrit (Bld) [Volume fraction] 44.1 % 40-54 [facility] - Hematology and Cell countsOrdered By: Renard Burgos on 01-16-2023 Erythrocyte distribution width (RBC) [Entitic vol] 41.8 fL 35.1-43.9 [facility] Erythrocyte distribution width (RBC) [Ratio] 12.4 % 11.6-14.6 [facility] Immature granulocytes/100 WBC (Bld) 0.400 % 0.0-0.9 [facility] Comment on above: IG% - Immature Granu locytes (promyelocytes, myelocytes and metamyelocytes) > 1% indicates that a LEFT SHIFT is Present. MCH (RBC) [Entitic mass] 29.6 pg 27.0-32.0 [facility] Nucleated RBC/100 WBC (Bld) [Ratio] 0 % 0-5 [facility] MCHC Auto (RBC) [Mass/Vol]Or dered By: Renard Burgos on 01-16-2023 MCHC (RBC) [Mass/Vol] 32.0 g/dL 32-36 [facility] Platelets bldOrdered By: Lyubov Burgos on 01-16-2023 Platelets (Bld) [#/Vol] 221 10*3/uL 150-450 [facility] Absolute lymphocyte countOrd ered By: Renard Burgos on 01-09-2023 Lymphocytes Auto (Unsp spec) [#/Vol] 2.41 10*3/uL 0.83-4.51 [facility] Basophil percentageOrdered B y: Renard Burgos on 01-09-2023 Basophils/100 WBC (Bld) 0.7 % 0-1 [facility] Eosinophils/100 WBC (Bld) 0.8 % 0-5 [facility] Neutrophils (Bld) [#/Vol] 5.4 10*3/uL 2.0-7.7 [facility] Neutrophils/100 WBC (Bld) 60.5 % 47-70 [facility] WBC (Bld) [#/Vol] 8.9 10*3/uL 4.4-11.0 [facility] Blood erythrocytes count (nu mber/volume)Ordered By: Renard Burgos on 01-09-2023 RBC (Bld) [#/Vol] 4.56 10*6/uL 4.6-6.2 [facility] Blood hemoglobin measurement (mass/volume)Ordered By: Renard Burgos on 01-09-2023 Hemoglobin (Bld) [Mass/Vol] 13.8 g/dL 13.0-16.5 [facility] Blood lymphocytes/100 leukoc ytesOrdered By: Renard Burgos on 01-09-2023 Lymphocytes/100 WBC (Bld) 27.0 % 19-41 [facility] Blood monocytes/100 leukocyt esOrdered By: Renard Burgos on 01-09-2023 Monocytes/100 WBC (Bld) 10.7 % 0-10 [facility] Blood platelet mean volumeOr dered By: Renard Burgos on 01-09-2023 Platelet mean volume (Bld) [Entitic vol] 10.8 fL 6.2-12.0 [facility] Determination of erythrocyte mean corpuscular volume (MCV)Ordered By: Renard Burgos on 01-09-2023 MCV (RBC) [Entitic vol] 92.5 fL 80-94 [facility] Hematocrit Auto (Bld) [Volum e fraction]Ordered By: Renard Burgos on 01-09-2023 Hematocrit (Bld) [Volume fraction] 42.2 % 40-54 [facility] - Hematology and Cell countsOrdered By: Renadr Burgos on 01-09-2023 Erythrocyte distribution width (RBC) [Entitic vol] 42.7 fL 35.1-43.9 [facility] Erythrocyte distribution width (RBC) [Ratio] 12.5 % 11.6-14.6 [facility] Immature granulocytes/100 WBC (Bld) 0.300 % 0.0-0.9 [facility] Comment on above: IG% - Immature Granu locytes (promyelocytes, myelocytes and metamyelocytes) > 1% indicates that a LEFT SHIFT is Present. MCH (RBC) [Entitic mass] 30.3 pg 27.0-32.0 [facility] Nucleated RBC/100 WBC (Bld) [Ratio] 0 % 0-5 [facility] MCHC Auto (RBC) [Mass/Vol]Or dered By: Renard Burgos on 01-09-2023 MCHC (RBC) [Mass/Vol] 32.7 g/dL 32-36 [facility] Platelets bldOrdered By: Lyubov Burgos on 01-09-2023 Platelets (Bld) [#/Vol] 209 10*3/uL 150-450 [facility] Absolute lymphocyte countOrd ered By: Renard Burgos on 01-03-2023 Lymphocytes Auto (Unsp spec) [#/Vol] 2.18 10*3/uL 0.83-4.51 [facility] Basophil percentageOrdered B y: Renard Burgos on 01-03-2023 Basophils/100 WBC (Bld) 0.6 % 0-1 [facility] Eosinophils/100 WBC (Bld) 0.5 % 0-5 [facility] Neutrophils (Bld) [#/Vol] 5.4 10*3/uL 2.0-7.7 [facility] Neutrophils/100 WBC (Bld) 64.2 % 47-70 [facility] WBC (Bld) [#/Vol] 8.4 10*3/uL 4.4-11.0 [facility] Blood erythrocytes count (nu mber/volume)Ordered By: Renard Burgos on 01-03-2023 RBC (Bld) [#/Vol] 4.59 10*6/uL 4.6-6.2 [facility] Blood hemoglobin measurement (mass/volume)Ordered By: Renard Burgos on 01-03-2023 Hemoglobin (Bld) [Mass/Vol] 13.9 g/dL 13.0-16.5 [facility] Blood lymphocytes/100 leukoc ytesOrdered By: Renard Burgos on 01-03-2023 Lymphocytes/100 WBC (Bld) 25.9 % 19-41 [facility] Blood monocytes/100 leukocyt esOrdered By: Renard Burgos on 01-03-2023 Monocytes/100 WBC (Bld) 8.3 % 0-10 [facility] Blood platelet mean volumeOr dered By: Renard Burgos on 01-03-2023 Platelet mean volume (Bld) [Entitic vol] 11.0 fL 6.2-12.0 [facility] Determination of erythrocyte mean corpuscular volume (MCV)Ordered By: Renard Burgos on 01-03-2023 MCV (RBC) [Entitic vol] 92.8 fL 80-94 [facility] Hematocrit Auto (Bld) [Volum e fraction]Ordered By: Renard Burgos on 01-03-2023 Hematocrit (Bld) [Volume fraction] 42.6 % 40-54 [facility] - Hematology and Cell countsOrdered By: Renard Burgos on 01-03-2023 Erythrocyte distribution width (RBC) [Entitic vol] 42.5 fL 35.1-43.9 [facility] Erythrocyte distribution width (RBC) [Ratio] 12.6 % 11.6-14.6 [facility] Immature granulocytes/100 WBC (Bld) 0.500 % 0.0-0.9 [facility] Comment on above: IG% - Immature Granu locytes (promyelocytes, myelocytes and metamyelocytes) > 1% indicates that a LEFT SHIFT is Present. MCH (RBC) [Entitic mass] 30.3 pg 27.0-32.0 [facility] Nucleated RBC/100 WBC (Bld) [Ratio] 0 % 0-5 [facility] MCHC Auto (RBC) [Mass/Vol]Or dered By: Renard Burgos on 01-03-2023 MCHC (RBC) [Mass/Vol] 32.6 g/dL 32-36 [facility] No Panel InformationOrdered By: Renard Burgos on 01-03-2023 Prostate Specific Antigen Screen 3.37 ng/mL 0.00-4.00 [facility] Comment on above: This test was perfor med using the TPSA assay method for the[employer] chemistry system. Values obtained with differentassay methods cannot be used interchangably.When changing PSA assays in the course of monitoring apatient, additional sequential testing should be carriedout to confirm baseline values. Platelets bldOrdered By: Lyubov Burgos on 01-03-2023 Platelets (Bld) [#/Vol] 200 10*3/uL 150-450 [facility] Absolute lymphocyte countOrd ered By: Renard Burgos on 12-26-2022 Lymphocytes Auto (Unsp spec) [#/Vol] 1.80 10*3/uL 0.83-4.51 [facility] Basophil percentageOrdered B y: Renard Burgos on 12-26-2022 Basophils/100 WBC (Bld) 0.4 % 0-1 [facility] Eosinophils/100 WBC (Bld) 0.6 % 0-5 [facility] Neutrophils (Bld) [#/Vol] 6.2 10*3/uL 2.0-7.7 [facility] Neutrophils/100 WBC (Bld) 69.8 % 47-70 [facility] WBC (Bld) [#/Vol] 8.9 10*3/uL 4.4-11.0 [facility] Blood erythrocytes count (nu mber/volume)Ordered By: Renard Burgos on 12-26-2022 RBC (Bld) [#/Vol] 4.58 10*6/uL 4.6-6.2 [facility] Blood hemoglobin measurement (mass/volume)Ordered By: Renard Burgos on 12-26-2022 Hemoglobin (Bld) [Mass/Vol] 14.0 g/dL 13.0-16.5 [facility] Blood lymphocytes/100 leukoc ytesOrdered By: Renard Burgos on 08-28-2023 Lymphocytes/100 WBC (Bld) 20.2 % 19-41 [facility] Blood monocytes/100 leukocyt esOrdered By: Renard Burgos on 12-26-2022 Monocytes/100 WBC (Bld) 8.6 % 0-10 [facility] Blood platelet mean volumeOr dered By: Renard Burgos on 12-26-2022 Platelet mean volume (Bld) [Entitic vol] 10.8 fL 6.2-12.0 [facility] Determination of erythrocyte mean corpuscular volume (MCV)Ordered By: Renard Burgos on 12-26-2022 MCV (RBC) [Entitic vol] 93.2 fL 80-94 [facility] Hematocrit Auto (Bld) [Volum e fraction]Ordered By: Renard Burgos on 12-26-2022 Hematocrit (Bld) [Volume fraction] 42.7 % 40-54 [facility] - Hematology and Cell countsOrdered By: Renard Burgos on 12-26-2022 Erythrocyte distribution width (RBC) [Entitic vol] 42.5 fL 35.1-43.9 [facility] Erythrocyte distribution width (RBC) [Ratio] 12.5 % 11.6-14.6 [facility] Immature granulocytes/100 WBC (Bld) 0.400 % 0.0-0.9 [facility] Comment on above: IG% - Immature Granu locytes (promyelocytes, myelocytes and metamyelocytes) > 1% indicates that a LEFT SHIFT is Present. MCH (RBC) [Entitic mass] 30.6 pg 27.0-32.0 [facility] Nucleated RBC/100 WBC (Bld) [Ratio] 0 % 0-5 [facility] MCHC Auto (RBC) [Mass/Vol]Or dered By: Renard Burgos on 12-26-2022 MCHC (RBC) [Mass/Vol] 32.8 g/dL 32-36 [facility] Platelets bldOrdered By: Lyubov Burgos on 12-26-2022 Platelets (Bld) [#/Vol] 200 10*3/uL 150-450 [facility] Absolute lymphocyte countOrd ered By: Renard Burgos on 12-19-2022 Lymphocytes Auto (Unsp spec) [#/Vol] 2.24 10*3/uL 0.83-4.51 [facility] Basophil percentageOrdered B y: Renard Burgos on 12-19-2022 Basophils/100 WBC (Bld) 0.3 % 0-1 [facility] Eosinophils/100 WBC (Bld) 0.8 % 0-5 [facility] Neutrophils (Bld) [#/Vol] 5.7 10*3/uL 2.0-7.7 [facility] Neutrophils/100 WBC (Bld) 64.1 % 47-70 [facility] WBC (Bld) [#/Vol] 8.9 10*3/uL 4.4-11.0 [facility] Blood erythrocytes count (nu mber/volume)Ordered By: Renard Burgos on 12-19-2022 RBC (Bld) [#/Vol] 4.44 10*6/uL 4.6-6.2 [facility] Blood hemoglobin measurement (mass/volume)Ordered By: Renard Burgos on 12-19-2022 Hemoglobin (Bld) [Mass/Vol] 13.5 g/dL 13.0-16.5 [facility] Blood lymphocytes/100 leukoc ytesOrdered By: Renard Burgos on 12-19-2022 Lymphocytes/100 WBC (Bld) 25.1 % 19-41 [facility] Blood monocytes/100 leukocyt esOrdered By: Renard Burgos on 12-19-2022 Monocytes/100 WBC (Bld) 9.4 % 0-10 [facility] Blood platelet mean volumeOr dered By: Renard Burgos on 12-19-2022 Platelet mean volume (Bld) [Entitic vol] 11.0 fL 6.2-12.0 [facility] Determination of erythrocyte mean corpuscular volume (MCV)Ordered By: Renard Burgos on 12-19-2022 MCV (RBC) [Entitic vol] 92.8 fL 80-94 [facility] Hematocrit Auto (Bld) [Volum e fraction]Ordered By: Renard Burgos on 12-19-2022 Hematocrit (Bld) [Volume fraction] 41.2 % 40-54 [facility] - Hematology and Cell countsOrdered By: Renard Burgos on 08-21-2023 Erythrocyte distribution width (RBC) [Entitic vol] 43.2 fL 35.1-43.9 [facility] Erythrocyte distribution width (RBC) [Ratio] 12.7 % 11.6-14.6 [facility] Immature granulocytes/100 WBC (Bld) 0.300 % 0.0-0.9 [facility] Comment on above: IG% - Immature Granu locytes (promyelocytes, myelocytes and metamyelocytes) > 1% indicates that a LEFT SHIFT is Present. MCH (RBC) [Entitic mass] 30.4 pg 27.0-32.0 [facility] Nucleated RBC/100 WBC (Bld) [Ratio] 0 % 0-5 [facility] MCHC Auto (RBC) [Mass/Vol]Or dered By: Renard Burgos on 12-19-2022 MCHC (RBC) [Mass/Vol] 32.8 g/dL 32-36 [facility] Platelets bldOrdered By: Lyubov Burgos on 12-19-2022 Platelets (Bld) [#/Vol] 194 10*3/uL 150-450 [facility] Absolute lymphocyte countOrd ered By: Renard Burgos on 12-12-2022 Lymphocytes Auto (Unsp spec) [#/Vol] 2.33 10*3/uL 0.83-4.51 [facility] Basophil percentageOrdered B y: Renard Burgos on 12-12-2022 Basophils/100 WBC (Bld) 0.6 % 0-1 [facility] Eosinophils/100 WBC (Bld) 0.9 % 0-5 [facility] Neutrophils (Bld) [#/Vol] 5.8 10*3/uL 2.0-7.7 [facility] Neutrophils/100 WBC (Bld) 63.5 % 47-70 [facility] WBC (Bld) [#/Vol] 9.1 10*3/uL 4.4-11.0 [facility] Blood erythrocytes count (nu mber/volume)Ordered By: Renard Burgos on 12-12-2022 RBC (Bld) [#/Vol] 4.52 10*6/uL 4.6-6.2 [facility] Blood hemoglobin measurement (mass/volume)Ordered By: Renard Burgos on 12-12-2022 Hemoglobin (Bld) [Mass/Vol] 13.9 g/dL 13.0-16.5 [facility] Blood lymphocytes/100 leukoc ytesOrdered By: Renard Burgos on 12-12-2022 Lymphocytes/100 WBC (Bld) 25.6 % 19-41 [facility] Blood monocytes/100 leukocyt esOrdered By: Renard Burgos on 12-12-2022 Monocytes/100 WBC (Bld) 9.1 % 0-10 [facility] Blood platelet mean volumeOr dered By: Renard Burgos on 12-12-2022 Platelet mean volume (Bld) [Entitic vol] 10.9 fL 6.2-12.0 [facility] Determination of erythrocyte mean corpuscular volume (MCV)Ordered By: Renard Burgos on 12-12-2022 MCV (RBC) [Entitic vol] 94.2 fL 80-94 [facility] Hematocrit Auto (Bld) [Volum e fraction]Ordered By: Renard Burgos on 12-12-2022 Hematocrit (Bld) [Volume fraction] 42.6 % 40-54 [facility] - Hematology and Cell countsOrdered By: Renard Burgos on 12-12-2022 Erythrocyte distribution width (RBC) [Entitic vol] 44.3 fL 35.1-43.9 [facility] Erythrocyte distribution width (RBC) [Ratio] 12.8 % 11.6-14.6 [facility] Immature granulocytes/100 WBC (Bld) 0.300 % 0.0-0.9 [facility] Comment on above: IG% - Immature Granu locytes (promyelocytes, myelocytes and metamyelocytes) > 1% indicates that a LEFT SHIFT is Present. MCH (RBC) [Entitic mass] 30.8 pg 27.0-32.0 [facility] Nucleated RBC/100 WBC (Bld) [Ratio] 0 % 0-5 [facility] MCHC Auto (RBC) [Mass/Vol]Or dered By: Renard Burgos on 12-12-2022 MCHC (RBC) [Mass/Vol] 32.6 g/dL 32-36 [facility] Platelets bldOrdered By: Lyubov Burgos on 12-12-2022 Platelets (Bld) [#/Vol] 211 10*3/uL 150-450 [facility] Absolute lymphocyte countOrd ered By: Renard Burgos on 12-05-2022 Lymphocytes Auto (Unsp spec) [#/Vol] 1.94 10*3/uL 0.83-4.51 [facility] Basophil percentageOrdered B y: Renard Burgos on 12-05-2022 Basophils/100 WBC (Bld) 0.4 % 0-1 [facility] Eosinophils/100 WBC (Bld) 0.9 % 0-5 [facility] Neutrophils (Bld) [#/Vol] 4.1 10*3/uL 2.0-7.7 [facility] Neutrophils/100 WBC (Bld) 61.2 % 47-70 [facility] WBC (Bld) [#/Vol] 6.7 10*3/uL 4.4-11.0 [facility] Blood erythrocytes count (nu mber/volume)Ordered By: Renard Burgos on 12-05-2022 RBC (Bld) [#/Vol] 4.39 10*6/uL 4.6-6.2 [facility] Blood hemoglobin measurement (mass/volume)Ordered By: Renard Burgos on 12-05-2022 Hemoglobin (Bld) [Mass/Vol] 13.3 g/dL 13.0-16.5 [facility] Blood lymphocytes/100 leukoc ytesOrdered By: Renard Burgos on 12-05-2022 Lymphocytes/100 WBC (Bld) 28.8 % 19-41 [facility] Blood monocytes/100 leukocyt esOrdered By: Renard Burgos on 12-05-2022 Monocytes/100 WBC (Bld) 8.3 % 0-10 [facility] Blood platelet mean volumeOr dered By: Renard Burgos on 12-05-2022 Platelet mean volume (Bld) [Entitic vol] 10.8 fL 6.2-12.0 [facility] Determination of erythrocyte mean corpuscular volume (MCV)Ordered By: Renard Burgos on 12-05-2022 MCV (RBC) [Entitic vol] 90.7 fL 80-94 [facility] Hematocrit Auto (Bld) [Volum e fraction]Ordered By: Renard Burgos on 12-05-2022 Hematocrit (Bld) [Volume fraction] 39.8 % 40-54 [facility] - Hematology and Cell countsOrdered By: Renard Burgos on 12-05-2022 Erythrocyte distribution width (RBC) [Entitic vol] 41.8 fL 35.1-43.9 [facility] Erythrocyte distribution width (RBC) [Ratio] 12.6 % 11.6-14.6 [facility] Immature granulocytes/100 WBC (Bld) 0.400 % 0.0-0.9 [facility] Comment on above: IG% - Immature Granu locytes (promyelocytes, myelocytes and metamyelocytes) > 1% indicates that a LEFT SHIFT is Present. MCH (RBC) [Entitic mass] 30.3 pg 27.0-32.0 [facility] Nucleated RBC/100 WBC (Bld) [Ratio] 0 % 0-5 [facility] MCHC Auto (RBC) [Mass/Vol]Or dered By: Renard Burgos on 12-05-2022 MCHC (RBC) [Mass/Vol] 33.4 g/dL 32-36 [facility] Platelets bldOrdered By: Lyubov Burgos on 12-05-2022 Platelets (Bld) [#/Vol] 208 10*3/uL 150-450 [facility] Absolute lymphocyte countOrd ered By: Renard Burgos on 11-28-2022 Lymphocytes Auto (Unsp spec) [#/Vol] 2.07 10*3/uL 0.83-4.51 [facility] Basophil percentageOrdered B y: Renard Burgos on 11-28-2022 Basophils/100 WBC (Bld) 0.4 % 0-1 [facility] Eosinophils/100 WBC (Bld) 0.6 % 0-5 [facility] Neutrophils (Bld) [#/Vol] 5.1 10*3/uL 2.0-7.7 [facility] Neutrophils/100 WBC (Bld) 64.6 % 47-70 [facility] WBC (Bld) [#/Vol] 7.9 10*3/uL 4.4-11.0 [facility] Blood erythrocytes count (nu mber/volume)Ordered By: Renard Burgos on 11-28-2022 RBC (Bld) [#/Vol] 4.54 10*6/uL 4.6-6.2 [facility] Blood hemoglobin measurement (mass/volume)Ordered By: Renard Burgos on 11-28-2022 Hemoglobin (Bld) [Mass/Vol] 13.7 g/dL 13.0-16.5 [facility] Blood lymphocytes/100 leukoc ytesOrdered By: Renard Burgos on 11-28-2022 Lymphocytes/100 WBC (Bld) 26.2 % 19-41 [facility] Blood monocytes/100 leukocyt esOrdered By: Renard Burgos on 11-28-2022 Monocytes/100 WBC (Bld) 7.7 % 0-10 [facility] Blood platelet mean volumeOr dered By: Renard Burgos on 11-28-2022 Platelet mean volume (Bld) [Entitic vol] 10.6 fL 6.2-12.0 [facility] Determination of erythrocyte mean corpuscular volume (MCV)Ordered By: Renard Burgos on 11-28-2022 MCV (RBC) [Entitic vol] 93.6 fL 80-94 [facility] Hematocrit Auto (Bld) [Volum e fraction]Ordered By: Renard Burgos on 11-28-2022 Hematocrit (Bld) [Volume fraction] 42.5 % 40-54 [facility] Laboratory - Hematology and Cell countsOrdered By: Renard Burgos on 11-28-2022 Erythrocyte distribution width (RBC) [Entitic vol] 43.5 fL 35.1-43.9 [facility] Erythrocyte distribution width (RBC) [Ratio] 12.7 % 11.6-14.6 [facility] Immature granulocytes/100 WBC (Bld) 0.500 % 0.0-0.9 [facility] Comment on above: IG% - Immature Granu locytes (promyelocytes, myelocytes and metamyelocytes) > 1% indicates that a LEFT SHIFT is Present. MCH (RBC) [Entitic mass] 30.2 pg 27.0-32.0 [facility] Nucleated RBC/100 WBC (Bld) [Ratio] 0 % 0-5 [facility] MCHC Auto (RBC) [Mass/Vol]Or dered By: Renard Burgos on 11-28-2022 MCHC (RBC) [Mass/Vol] 32.2 g/dL 32-36 [facility] Platelets bldOrdered By: Lyubov Burgos on 11-28-2022 Platelets (Bld) [#/Vol] 201 10*3/uL 150-450 [facility] Absolute lymphocyte countOrd ered By: Renard Burgos on 11-21-2022 Lymphocytes Auto (Unsp spec) [#/Vol] 2.32 10*3/uL 0.83-4.51 [facility] Basophil percentageOrdered B y: Renard Burgos on 11-21-2022 Basophils/100 WBC (Bld) 0.6 % 0-1 [facility] Eosinophils/100 WBC (Bld) 0.7 % 0-5 [facility] Neutrophils (Bld) [#/Vol] 5.0 10*3/uL 2.0-7.7 [facility] Neutrophils/100 WBC (Bld) 60.6 % 47-70 [facility] WBC (Bld) [#/Vol] 8.2 10*3/uL 4.4-11.0 [facility] Blood erythrocytes count (nu mber/volume)Ordered By: Renard Burgos on 11-21-2022 RBC (Bld) [#/Vol] 4.71 10*6/uL 4.6-6.2 [facility] Blood hemoglobin measurement (mass/volume)Ordered By: Renard Burgos on 11-21-2022 Hemoglobin (Bld) [Mass/Vol] 14.3 g/dL 13.0-16.5 [facility] Blood lymphocytes/100 leukoc ytesOrdered By: Renard Burgos on 11-21-2022 Lymphocytes/100 WBC (Bld) 28.2 % 19-41 [facility] Blood monocytes/100 leukocyt esOrdered By: Renard Burgos on 11-21-2022 Monocytes/100 WBC (Bld) 9.2 % 0-10 [facility] Blood platelet mean volumeOr dered By: Renard Burgos on 11-21-2022 Platelet mean volume (Bld) [Entitic vol] 10.4 fL 6.2-12.0 [facility] Determination of erythrocyte mean corpuscular volume (MCV)Ordered By: Renard Burgos on 11-21-2022 MCV (RBC) [Entitic vol] 91.9 fL 80-94 [facility] Hematocrit Auto (Bld) [Volum e fraction]Ordered By: Renard Burgos on 11-21-2022 Hematocrit (Bld) [Volume fraction] 43.3 % 40-54 [facility] - Hematology and Cell countsOrdered By: Renard Burgos on 11-21-2022 Erythrocyte distribution width (RBC) [Entitic vol] 43.1 fL 35.1-43.9 [facility] Erythrocyte distribution width (RBC) [Ratio] 12.8 % 11.6-14.6 [facility] Immature granulocytes/100 WBC (Bld) 0.700 % 0.0-0.9 [facility] Comment on above: IG% - Immature Granu locytes (promyelocytes, myelocytes and metamyelocytes) > 1% indicates that a LEFT SHIFT is Present. MCH (RBC) [Entitic mass] 30.4 pg 27.0-32.0 [facility] Nucleated RBC/100 WBC (Bld) [Ratio] 0 % 0-5 [facility] MCHC Auto (RBC) [Mass/Vol]Or dered By: Renard Burgos on 11-21-2022 MCHC (RBC) [Mass/Vol] 33.0 g/dL 32-36 [facility] Platelets bldOrdered By: Lyubov Burgos on 11-21-2022 Platelets (Bld) [#/Vol] 219 10*3/uL 150-450 [facility] Absolute lymphocyte countOrd ered By: Renard Burgos on 11-14-2022 Lymphocytes Auto (Unsp spec) [#/Vol] 1.82 10*3/uL 0.83-4.51 [facility] Basophil percentageOrdered B y: Renard Burgos on 11-14-2022 Basophils/100 WBC (Bld) 0.4 % 0-1 [facility] Chloride [Moles/Vol] 107 mmol/L 98-107 [facility] Eosinophils/100 WBC (Bld) 0.4 % 0-5 [facility] Glucose [Mass/Vol] 121 mg/dL 74-106 [facility] Comment on above: Fasting Glucose resu lt from 100 to 125 mg/dL suggests IMPAIRED HOMEOSTASIS per A.D.A. criteria. Neutrophils (Bld) [#/Vol] 4.7 10*3/uL 2.0-7.7 [facility] Neutrophils/100 WBC (Bld) 66.6 % 47-70 [facility] Potassium [Moles/Vol] 3.7 mmol/L 3.5-5.1 [facility] Sodium [Moles/Vol] 141 mmol/L 136-145 [facility] WBC (Bld) [#/Vol] 7.1 10*3/uL 4.4-11.0 [facility] Blood erythrocytes count (nu mber/volume)Ordered By: Renard Burgos on 11-14-2022 RBC (Bld) [#/Vol] 4.35 10*6/uL 4.6-6.2 [facility] Blood hemoglobin measurement (mass/volume)Ordered By: Renard Burgos on 11-14-2022 Hemoglobin (Bld) [Mass/Vol] 13.6 g/dL 13.0-16.5 [facility] Blood lymphocytes/100 leukoc ytesOrdered By: Renard Burgos on 11-14-2022 Lymphocytes/100 WBC (Bld) 25.6 % 19-41 [facility] Blood monocytes/100 leukocyt esOrdered By: Renard Burgos on 11-14-2022 Monocytes/100 WBC (Bld) 6.6 % 0-10 [facility] Blood platelet mean volumeOr dered By: Renard Burgos on 11-14-2022 Platelet mean volume (Bld) [Entitic vol] 10.9 fL 6.2-12.0 [facility] Determination of erythrocyte mean corpuscular volume (MCV)Ordered By: Renard Burgos on 11-14-2022 MCV (RBC) [Entitic vol] 93.3 fL 80-94 [facility] Hematocrit Auto (Bld) [Volum e fraction]Ordered By: Renard Burgos on 11-14-2022 Hematocrit (Bld) [Volume fraction] 40.6 % 40-54 [facility] Laboratory - Chemistry and C hemistry - challengeOrdered By: Renard Burgos on 11-14-2022 CO2 [Moles/Vol] 31.0 mmol/L 21.0-32.0 [facility] Urea nitrogen/Creatinine [Mass ratio] 26.0 mg/mg 10-20 [facility] - Hematology and Cell countsOrdered By: Renard Burgos on 11-14-2022 Erythrocyte distribution width (RBC) [Entitic vol] 43.9 fL 35.1-43.9 [facility] Erythrocyte distribution width (RBC) [Ratio] 12.8 % 11.6-14.6 [facility] Immature granulocytes/100 WBC (Bld) 0.400 % 0.0-0.9 [facility] Comment on above: IG% - Immature Granu locytes (promyelocytes, myelocytes and metamyelocytes) > 1% indicates that a LEFT SHIFT is Present. MCH (RBC) [Entitic mass] 31.3 pg 27.0-32.0 [facility] Nucleated RBC/100 WBC (Bld) [Ratio] 0 % 0-5 [facility] MCHC Auto (RBC) [Mass/Vol]Or dered By: Renard Burgos on 11-14-2022 MCHC (RBC) [Mass/Vol] 33.5 g/dL 32-36 [facility] No Panel InformationOrdered By: Renard Burgos on 11-14-2022 Estimated GFR (MDRD) Amer 147 mL/min >60 [facility] Comment on above: GFR Calc Estimated GFR (MDRD) Non-Af Amer 122 mL/min >60 [facility] Comment on above: Non- GFR Calc Platelets bldOrdered By: Lyubov Burgos on 11-14-2022 Platelets (Bld) [#/Vol] 202 10*3/uL 150-450 [facility] Serum or plasma calcium gordy urement (mass/volume)Ordered By: Renard Burgos on 11-14-2022 Calcium [Mass/Vol] 8.2 mg/dL 8.5-10.1 [facility] Serum or plasma creatinine m easurement [...] 11-14-2022 Urea nitrogen [Mass/Vol] 18 mg/dL 7-18 [facility] Thin prep Papanicolaou smear with manual screeningOrdered By: Renard Burgos on 11-14-2022 Thin prep Papanicolaou smear with manual screening 3 5-15 [facility] Absolute lymphocyte countOrd ered By: Renard Burgos on 11-07-2022 Lymphocytes Auto (Unsp spec) [#/Vol] 1.99 10*3/uL 0.83-4.51 [facility] Basophil percentageOrdered B y: Renard Burgos on 11-07-2022 Basophils/100 WBC (Bld) 0.8 % 0-1 [facility] Eosinophils/100 WBC (Bld) 0.5 % 0-5 [facility] Neutrophils (Bld) [#/Vol] 5.1 10*3/uL 2.0-7.7 [facility] Neutrophils/100 WBC (Bld) 64.0 % 47-70 [facility] WBC (Bld) [#/Vol] 8.0 10*3/uL 4.4-11.0 [facility] Blood erythrocytes count (nu mber/volume)Ordered By: Renard Burgos on 11-07-2022 RBC (Bld) [#/Vol] 4.45 10*6/uL 4.6-6.2 [facility] Blood hemoglobin measurement (mass/volume)Ordered By: Renard Burgos on 11-07-2022 Hemoglobin (Bld) [Mass/Vol] 13.7 g/dL 13.0-16.5 [facility] Blood lymphocytes/100 leukoc ytesOrdered By: Renard Burgos on 11-07-2022 Lymphocytes/100 WBC (Bld) 25.0 % 19-41 [facility] Blood monocytes/100 leukocyt esOrdered By: Renard Burgos on 11-07-2022 Monocytes/100 WBC (Bld) 9.4 % 0-10 [facility] Blood platelet mean volumeOr dered By: Renard Burgos on 11-07-2022 Platelet mean volume (Bld) [Entitic vol] 10.7 fL 6.2-12.0 [facility] Determination of erythrocyte mean corpuscular volume (MCV)Ordered By: Renard Burgos on 11-07-2022 MCV (RBC) [Entitic vol] 91.5 fL 80-94 [facility] Hematocrit Auto (Bld) [Volum e fraction]Ordered By: Renard Burgos on 11-07-2022 Hematocrit (Bld) [Volume fraction] 40.7 % 40-54 [facility] - Hematology and Cell countsOrdered By: Renard Burgos on 11-07-2022 Erythrocyte distribution width (RBC) [Entitic vol] 42.4 fL 35.1-43.9 [facility] Erythrocyte distribution width (RBC) [Ratio] 12.8 % 11.6-14.6 [facility] Immature granulocytes/100 WBC (Bld) 0.300 % 0.0-0.9 [facility] Comment on above: IG% - Immature Granu locytes (promyelocytes, myelocytes and metamyelocytes) > 1% indicates that a LEFT SHIFT is Present. MCH (RBC) [Entitic mass] 30.8 pg 27.0-32.0 [facility] Nucleated RBC/100 WBC (Bld) [Ratio] 0 % 0-5 [facility] MCHC Auto (RBC) [Mass/Vol]Or dered By: Renard Burgos on 11-07-2022 MCHC (RBC) [Mass/Vol] 33.7 g/dL 32-36 [facility] Platelets bldOrdered By: Lyubov Burgos on 11-07-2022 Platelets (Bld) [#/Vol] 220 10*3/uL 150-450 [facility] Absolute lymphocyte countOrd ered By: Renard Burgos on 10-31-2022 Lymphocytes Auto (Unsp spec) [#/Vol] 1.97 10*3/uL 0.83-4.51 [facility] Basophil percentageOrdered B y: Renard Burgos on 10-31-2022 Basophils/100 WBC (Bld) 0.5 % 0-1 [facility] Eosinophils/100 WBC (Bld) 0.6 % 0-5 [facility] Neutrophils (Bld) [#/Vol] 6.7 10*3/uL 2.0-7.7 [facility] Neutrophils/100 WBC (Bld) 69.9 % 47-70 [facility] WBC (Bld) [#/Vol] 9.6 10*3/uL 4.4-11.0 [facility] Blood erythrocytes count (nu mber/volume)Ordered By: Renard Burgos on 10-31-2022 RBC (Bld) [#/Vol] 4.47 10*6/uL 4.6-6.2 [facility] Blood hemoglobin measurement (mass/volume)Ordered By: Renard Burgos on 10-31-2022 Hemoglobin (Bld) [Mass/Vol] 13.5 g/dL 13.0-16.5 [facility] Blood lymphocytes/100 leukoc ytesOrdered By: Renard Burgos on 10-31-2022 Lymphocytes/100 WBC (Bld) 20.5 % 19-41 [facility] Blood monocytes/100 leukocyt esOrdered By: Renard Burgos on 10-31-2022 Monocytes/100 WBC (Bld) 7.9 % 0-10 [facility] Blood platelet mean volumeOr dered By: Renard Burgos on 10-31-2022 Platelet mean volume (Bld) [Entitic vol] 11.1 fL 6.2-12.0 [facility] Determination of erythrocyte mean corpuscular volume (MCV)Ordered By: Renard Burgos on 10-31-2022 MCV (RBC) [Entitic vol] 92.4 fL 80-94 [facility] Hematocrit Auto (Bld) [Volum e fraction]Ordered By: Renard Burgos on 10-31-2022 Hematocrit (Bld) [Volume fraction] 41.3 % 40-54 [facility] - Hematology and Cell countsOrdered By: Renard Burgos on 10-31-2022 Erythrocyte distribution width (RBC) [Entitic vol] 42.9 fL 35.1-43.9 [facility] Erythrocyte distribution width (RBC) [Ratio] 12.7 % 11.6-14.6 [facility] Immature granulocytes/100 WBC (Bld) 0.600 % 0.0-0.9 [facility] Comment on above: IG% - Immature Granu locytes (promyelocytes, myelocytes and metamyelocytes) > 1% indicates that a LEFT SHIFT is Present. MCH (RBC) [Entitic mass] 30.2 pg 27.0-32.0 [facility] Nucleated RBC/100 WBC (Bld) [Ratio] 0 % 0-5 [facility] MCHC Auto (RBC) [Mass/Vol]Or dered By: Renard Burgos on 10-31-2022 MCHC (RBC) [Mass/Vol] 32.7 g/dL 32-36 [facility] Platelets bldOrdered By: [facility] on 10-31-2022 Platelets (Bld) [#/Vol] 221 10*3/uL 150-450 [facility] Absolute lymphocyte countOrd ered By: Renard Burgos on 10-24-2022 Lymphocytes Auto (Unsp spec) [#/Vol] 1.96 10*3/uL 0.83-4.51 [facility] Basophil percentageOrdered B y: Renard Burgos on 10-24-2022 Basophils/100 WBC (Bld) 0.4 % 0-1 [facility] Eosinophils/100 WBC (Bld) 0.7 % 0-5 [facility] Neutrophils (Bld) [#/Vol] 4.5 10*3/uL 2.0-7.7 [facility] Neutrophils/100 WBC (Bld) 61.9 % 47-70 [facility] WBC (Bld) [#/Vol] 7.3 10*3/uL 4.4-11.0 [facility] Blood erythrocytes count (nu mber/volume)Ordered By: Renard Burgos on 10-24-2022 RBC (Bld) [#/Vol] 4.41 10*6/uL 4.6-6.2 [facility] Blood hemoglobin measurement (mass/volume)Ordered By: Renard Burgos on 10-24-2022 Hemoglobin (Bld) [Mass/Vol] 13.2 g/dL 13.0-16.5 [facility] Blood lymphocytes/100 leukoc ytesOrdered By: Renard Burgos on 10-24-2022 Lymphocytes/100 WBC (Bld) 27.0 % 19-41 [facility] Blood monocytes/100 leukocyt esOrdered By: Renard Burgos on 10-24-2022 Monocytes/100 WBC (Bld) 9.4 % 0-10 [facility] Blood platelet mean volumeOr dered By: Renard Burgos on 10-24-2022 Platelet mean volume (Bld) [Entitic vol] 10.9 fL 6.2-12.0 [facility] Determination of erythrocyte mean corpuscular volume (MCV)Ordered By: Renard Burgos on 10-24-2022 MCV (RBC) [Entitic vol] 92.1 fL 80-94 [facility] Hematocrit Auto (Bld) [Volum e fraction]Ordered By: Renard Burgos on 10-24-2022 Hematocrit (Bld) [Volume fraction] 40.6 % 40-54 [facility] - Hematology and Cell countsOrdered By: Renard Burgos on 10-24-2022 Erythrocyte distribution width (RBC) [Entitic vol] 42.8 fL 35.1-43.9 [facility] Erythrocyte distribution width (RBC) [Ratio] 12.8 % 11.6-14.6 [facility] Immature granulocytes/100 WBC (Bld) 0.600 % 0.0-0.9 [facility] Comment on above: IG% - Immature Granu locytes (promyelocytes, myelocytes and metamyelocytes) > 1% indicates that a LEFT SHIFT is Present. MCH (RBC) [Entitic mass] 29.9 pg 27.0-32.0 [facility] Nucleated RBC/100 WBC (Bld) [Ratio] 0 % 0-5 [facility] MCHC Auto (RBC) [Mass/Vol]Or dered By: Renard Burgos on 10-24-2022 MCHC (RBC) [Mass/Vol] 32.5 g/dL 32-36 [facility] Platelets bldOrdered By: Lyubov Burgos on 10-24-2022 Platelets (Bld) [#/Vol] 213 10*3/uL 150-450 [facility] Absolute lymphocyte countOrd ered By: Renard Burgos on 10-17-2022 Lymphocytes Auto (Unsp spec) [#/Vol] 2.05 10*3/uL 0.83-4.51 [facility] Basophil percentageOrdered B y: Renard Burgos on 10-17-2022 Basophils/100 WBC (Bld) 0.4 % 0-1 [facility] Eosinophils/100 WBC (Bld) 0.5 % 0-5 [facility] Neutrophils (Bld) [#/Vol] 6.7 10*3/uL 2.0-7.7 [facility] Neutrophils/100 WBC (Bld) 70.9 % 47-70 [facility] WBC (Bld) [#/Vol] 9.4 10*3/uL 4.4-11.0 [facility] Blood erythrocytes count (nu mber/volume)Ordered By: Renard Burgos on 10-17-2022 RBC (Bld) [#/Vol] 4.33 10*6/uL 4.6-6.2 [facility] Blood hemoglobin measurement (mass/volume)Ordered By: Renard Burgos on 10-17-2022 Hemoglobin (Bld) [Mass/Vol] 13.3 g/dL 13.0-16.5 [facility] Blood lymphocytes/100 leukoc ytesOrdered By: Renard Burgos on 10-17-2022 Lymphocytes/100 WBC (Bld) 21.7 % 19-41 [facility] Blood monocytes/100 leukocyt esOrdered By: Renard Burgos on 10-17-2022 Monocytes/100 WBC (Bld) 6.1 % 0-10 [facility] Blood platelet mean volumeOr dered By: Renard Burgos on 10-17-2022 Platelet mean volume (Bld) [Entitic vol] 10.9 fL 6.2-12.0 [facility] Determination of erythrocyte mean corpuscular volume (MCV)Ordered By: Renard Burgos on 10-17-2022 MCV (RBC) [Entitic vol] 93.8 fL 80-94 [facility] Hematocrit Auto (Bld) [Volum e fraction]Ordered By: Renard Burgos on 10-17-2022 Hematocrit (Bld) [Volume fraction] 40.6 % 40-54 [facility] - Hematology and Cell countsOrdered By: Renard Burgos on 10-17-2022 Erythrocyte distribution width (RBC) [Entitic vol] 42.7 fL 35.1-43.9 [facility] Erythrocyte distribution width (RBC) [Ratio] 12.4 % 11.6-14.6 [facility] Immature granulocytes/100 WBC (Bld) 0.400 % 0.0-0.9 [facility] Comment on above: IG% - Immature Granu locytes (promyelocytes, myelocytes and metamyelocytes) > 1% indicates that a LEFT SHIFT is Present. MCH (RBC) [Entitic mass] 30.7 pg 27.0-32.0 [facility] Nucleated RBC/100 WBC (Bld) [Ratio] 0 % 0-5 [facility] MCHC Auto (RBC) [Mass/Vol]Or dered By: Renard Burgos on 10-17-2022 MCHC (RBC) [Mass/Vol] 32.8 g/dL 32-36 [facility] Platelets bldOrdered By: Lyubov Burgos on 10-17-2022 Platelets (Bld) [#/Vol] 186 10*3/uL 150-450 [facility] Absolute lymphocyte countOrd ered By: Renard Burgos on 10-10-2022 Lymphocytes Auto (Unsp spec) [#/Vol] 2.21 10*3/uL 0.83-4.51 [facility] Basophil percentageOrdered B y: Renard Burgos on 10-10-2022 Basophils/100 WBC (Bld) 0.6 % 0-1 [facility] Eosinophils/100 WBC (Bld) 0.6 % 0-5 [facility] Neutrophils (Bld) [#/Vol] 4.7 10*3/uL 2.0-7.7 [facility] Neutrophils/100 WBC (Bld) 59.6 % 47-70 [facility] WBC (Bld) [#/Vol] 7.9 10*3/uL 4.4-11.0 [facility] Blood erythrocytes count (nu mber/volume)Ordered By: Renard Burgos on 10-10-2022 RBC (Bld) [#/Vol] 4.78 10*6/uL 4.6-6.2 [facility] Blood hemoglobin measurement (mass/volume)Ordered By: Renard Burgos on 10-10-2022 Hemoglobin (Bld) [Mass/Vol] 14.4 g/dL 13.0-16.5 [facility] Blood lymphocytes/100 leukoc ytesOrdered By: Renard Burgos on 10-10-2022 Lymphocytes/100 WBC (Bld) 28.0 % 19-41 [facility] Blood monocytes/100 leukocyt esOrdered By: Renard Burgos on 10-10-2022 Monocytes/100 WBC (Bld) 10.8 % 0-10 [facility] Blood platelet mean volumeOr dered By: Renard Burgos on 10-10-2022 Platelet mean volume (Bld) [Entitic vol] 10.7 fL 6.2-12.0 [facility] Determination of erythrocyte mean corpuscular volume (MCV)Ordered By: Renard Burgos on 10-10-2022 MCV (RBC) [Entitic vol] 94.8 fL 80-94 [facility] Hematocrit Auto (Bld) [Volum e fraction]Ordered By: Renard Burgos on 10-10-2022 Hematocrit (Bld) [Volume fraction] 45.3 % 40-54 [facility] - Hematology and Cell countsOrdered By: Renard Burgos on 10-10-2022 Erythrocyte distribution width (RBC) [Entitic vol] 43.8 fL 35.1-43.9 [facility] Erythrocyte distribution width (RBC) [Ratio] 12.6 % 11.6-14.6 [facility] Immature granulocytes/100 WBC (Bld) 0.400 % 0.0-0.9 [facility] Comment on above: IG% - Immature Granu locytes (promyelocytes, myelocytes and metamyelocytes) > 1% indicates that a LEFT SHIFT is Present. MCH (RBC) [Entitic mass] 30.1 pg 27.0-32.0 [facility] Nucleated RBC/100 WBC (Bld) [Ratio] 0 % 0-5 [facility] MCHC Auto (RBC) [Mass/Vol]Or dered By: Renard Burgos on 10-10-2022 MCHC (RBC) [Mass/Vol] 31.8 g/dL 32-36 [facility] Platelets bldOrdered By: Lyubov Burgos on 10-10-2022 Platelets (Bld) [#/Vol] 198 10*3/uL 150-450 [facility] Absolute lymphocyte countOrd ered By: Renard Burgos on 10-03-2022 Lymphocytes Auto (Unsp spec) [#/Vol] 2.00 10*3/uL 0.83-4.51 [facility] Basophil percentageOrdered B y: Renard Burgos on 10-03-2022 Basophils/100 WBC (Bld) 0.6 % 0-1 [facility] Bilirubin [Mass/Vol] 0.30 mg/dL 0.20-1.00 [facility] Comment on above: For patients on eltr ombopag therapy, use of Dimension [place] TBIL is not recommended. Chloride [Moles/Vol] 109 mmol/L 98-107 [facility] Cholesterol [Mass/Vol] 129 mg/dL <200 [facility] Comment on above: <200 mg/dL Desirable 200-240 mg/dL Borderline >240 mg/dL High Risk Eosinophils/100 WBC (Bld) 0.8 % 0-5 [facility] Glucose [Mass/Vol] 82 mg/dL 74-106 [facility] Neutrophils (Bld) [#/Vol] 5.1 10*3/uL 2.0-7.7 [facility] Neutrophils/100 WBC (Bld) 63.2 % 47-70 [facility] Potassium [Moles/Vol] 3.9 mmol/L 3.5-5.1 [facility] Protein [Mass/Vol] 6.1 g/dL 6.4-8.2 [facility] Sodium [Moles/Vol] 140 mmol/L 136-145 [facility] Triglyceride [Mass/Vol] 209 mg/dL <199 [facility] Comment on above: The drugs N-Acetylcy steine and Metamizole may falsely depress this assay.Serum Triglycerides Reference Interval Normal <150 mg/dL Borderline high 150 - 199 mg/dL High 200 - 499 mg/dL Very High > or = 500 mg/dL WBC (Bld) [#/Vol] 8.0 10*3/uL 4.4-11.0 [facility] Blood erythrocytes count (nu mber/volume)Ordered By: Renard Burgos on 10-03-2022 RBC (Bld) [#/Vol] 4.58 10*6/uL 4.6-6.2 [facility] Blood hemoglobin measurement (mass/volume)Ordered By: Renard Bugros on 10-03-2022 Hemoglobin (Bld) [Mass/Vol] 13.9 g/dL 13.0-16.5 [facility] Blood lymphocytes/100 leukoc ytesOrdered By: Renard Burgos on 10-03-2022 Lymphocytes/100 WBC (Bld) 25.1 % 19-41 [facility] Blood monocytes/100 leukocyt esOrdered By: Renard Burgos on 10-03-2022 Monocytes/100 WBC (Bld) 10.0 % 0-10 [facility] Blood platelet mean volumeOr dered By: Renard Burgos on 10-03-2022 Platelet mean volume (Bld) [Entitic vol] 11.1 fL 6.2-12.0 [facility] Determination of erythrocyte mean corpuscular volume (MCV)Ordered By: Renard Burgos on 10-03-2022 MCV (RBC) [Entitic vol] 93.9 fL 80-94 [facility] Hematocrit Auto (Bld) [Volum e fraction]Ordered By: Renard Burgos on 10-03-2022 Hematocrit (Bld) [Volume fraction] 43.0 % 40-54 [facility] - Chemistry and C hemistry - challengeOrdered By: Renard Burgos on 10-03-2022 ALP [Catalytic activity/Vol] 98 U/L 45-117 [facility] ALT [Catalytic activity/Vol] 19 U/L 16-61 [facility] CO2 [Moles/Vol] 31.0 mmol/L 21.0-32.0 [facility] Globulin (S) [Mass/Vol] 3.1 g/dL 2.2-4.2 [facility] Urea nitrogen/Creatinine [Mass ratio] 25.6 mg/mg 10-20 [facility] - Hematology and Cell countsOrdered By: Renard Burgos on 10-03-2022 Erythrocyte distribution width (RBC) [Entitic vol] 43.8 fL 35.1-43.9 [facility] Erythrocyte distribution width (RBC) [Ratio] 12.7 % 11.6-14.6 [facility] Immature granulocytes/100 WBC (Bld) 0.300 % 0.0-0.9 [facility] Comment on above: IG% - Immature Granu locytes (promyelocytes, myelocytes and metamyelocytes) > 1% indicates that a LEFT SHIFT is Present. MCH (RBC) [Entitic mass] 30.3 pg 27.0-32.0 [facility] Nucleated RBC/100 WBC (Bld) [Ratio] 0 % 0-5 [facility] MCHC Auto (RBC) [Mass/Vol]Or dered By: Renard Burgos on 10-03-2022 MCHC (RBC) [Mass/Vol] 32.3 g/dL 32-36 [facility] No Panel InformationOrdered By: Renard Burgos on 10-03-2022 Estimated GFR (MDRD) Amer 165 mL/min >60 [facility] Comment on above: GFR Calc Estimated GFR (MDRD) Non-Af Amer 137 mL/min >60 [facility] Comment on above: Non- GFR Calc Platelets bldOrdered By: Lyubov Burgos on 10-03-2022 Platelets (Bld) [#/Vol] 204 10*3/uL 150-450 [facility] Serum or plasma albumin gordy urement (mass/volume)Ordered By: Renard Burgos on 10-03-2022 Albumin [Mass/Vol] 3.0 g/dL 3.2-5.0 [facility] Serum or plasma albumin/glob ulin mass ratioOrdered By: Renard Burgos on 10-03-2022 Albumin/Globulin [Mass ratio] 1.0 {ratio} 0.9-2.4 [facility] Serum or plasma calcium gordy urement (mass/volume)Ordered By: Renard Burgos on 10-03-2022 Calcium [Mass/Vol] 8.4 mg/dL 8.5-10.1 [facility] Serum or plasma cholesterol in HDL measurement (mass/volume)Ordered By: Renard Burgos on 10-03-2022 Cholesterol in HDL [Mass/Vol] 29 mg/dL >40 [facility] Comment on above: The drugs N-Acetylcy steine and Metamizole may falsely depress this assay. Reference Range HDL <40 mg/dL Low HDL Cholesterol HDL >or= 60 mg/dL High HDL Cholesterol Serum or plasma cholesterol in VLDL measurement (mass/volume)Ordered By: Renard Burgos on 10-03-2022 Cholesterol in VLDL [Mass/Vol] 42 mg/dL 5-40 [facility] Serum or plasma creatinine m easurement [...] Cholesterol in LDL [Mass/Vol] 58 mg/dL 0-130 [facility] Serum or plasma urea nitroge n measurement (mass/volume)Ordered By: Renard Burgos on 10-03-2022 Urea nitrogen [Mass/Vol] 16 mg/dL 7-18 [facility] Thin prep Papanicolaou smear with manual screeningOrdered By: Renard Burgos on 10-03-2022 Thin prep Papanicolaou smear with manual screening 13 U/L 15-37 [facility] Thin prep Papanicolaou smear with manual screening 0 5-15 [facility] Absolute lymphocyte countOrd ered By: Renard Burgos on 09-19-2022 Lymphocytes Auto (Unsp spec) [#/Vol] 1.59 10*3/uL 0.83-4.51 [facility] Basophil percentageOrdered B y: Renard Burgos on 09-19-2022 Basophils/100 WBC (Bld) 0.5 % 0-1 [facility] Eosinophils/100 WBC (Bld) 0.3 % 0-5 [facility] Neutrophils (Bld) [#/Vol] 7.4 10*3/uL 2.0-7.7 [facility] Neutrophils/100 WBC (Bld) 75.0 % 47-70 [facility] WBC (Bld) [#/Vol] 9.9 10*3/uL 4.4-11.0 [facility] Blood erythrocytes count (nu mber/volume)Ordered By: Renard Burgos on 09-19-2022 RBC (Bld) [#/Vol] 4.46 10*6/uL 4.6-6.2 [facility] Blood hemoglobin measurement (mass/volume)Ordered By: Renard Burgos on 09-19-2022 Hemoglobin (Bld) [Mass/Vol] 13.5 g/dL 13.0-16.5 [facility] Blood lymphocytes/100 leukoc ytesOrdered By: Renard Burgos on 09-19-2022 Lymphocytes/100 WBC (Bld) 16.1 % 19-41 [facility] Blood monocytes/100 leukocyt esOrdered By: Renard Burgos on 09-19-2022 Monocytes/100 WBC (Bld) 7.6 % 0-10 [facility] Blood platelet mean volumeOr dered By: Renard Burgos on 09-19-2022 Platelet mean volume (Bld) [Entitic vol] 10.8 fL 6.2-12.0 [facility] Determination of erythrocyte mean corpuscular volume (MCV)Ordered By: Renard Burgos on 09-19-2022 MCV (RBC) [Entitic vol] 92.2 fL 80-94 [facility] Hematocrit Auto (Bld) [Volum e fraction]Ordered By: Renard Burgos on 09-19-2022 Hematocrit (Bld) [Volume fraction] 41.1 % 40-54 [facility] - Hematology and Cell countsOrdered By: Renard Burgos on 09-19-2022 Erythrocyte distribution width (RBC) [Entitic vol] 41.2 fL 35.1-43.9 [facility] Erythrocyte distribution width (RBC) [Ratio] 12.3 % 11.6-14.6 [facility] Immature granulocytes/100 WBC (Bld) 0.500 % 0.0-0.9 [facility] Comment on above: IG% - Immature Granu locytes (promyelocytes, myelocytes and metamyelocytes) > 1% indicates that a LEFT SHIFT is Present. MCH (RBC) [Entitic mass] 30.3 pg 27.0-32.0 [facility] Nucleated RBC/100 WBC (Bld) [Ratio] 0 % 0-5 [facility] MCHC Auto (RBC) [Mass/Vol]Or dered By: Renard Burgos on 09-19-2022 MCHC (RBC) [Mass/Vol] 32.8 g/dL 32-36 [facility] Platelets bldOrdered By: Pet lizy Loretta on 09-19-2022 Platelets (Bld) [#/Vol] 245 10*3/uL 150-450 [facility] Absolute lymphocyte countOrd ered By: Renard Burgos on 09-12-2022 Lymphocytes Auto (Unsp spec) [#/Vol] 2.11 10*3/uL 0.83-4.51 [facility] Basophil percentageOrdered B y: Renard Burgos on 09-12-2022 Basophils/100 WBC (Bld) 0.5 % 0-1 [facility] Eosinophils/100 WBC (Bld) 0.7 % 0-5 [facility] Neutrophils (Bld) [#/Vol] 4.7 10*3/uL 2.0-7.7 [facility] Neutrophils/100 WBC (Bld) 63.6 % 47-70 [facility] WBC (Bld) [#/Vol] 7.3 10*3/uL 4.4-11.0 [facility] Blood erythrocytes count (nu mber/volume)Ordered By: Renard Burgos on 09-12-2022 RBC (Bld) [#/Vol] 4.40 10*6/uL 4.6-6.2 [facility] Blood hemoglobin measurement (mass/volume)Ordered By: Renard Burgos on 09-12-2022 Hemoglobin (Bld) [Mass/Vol] 13.5 g/dL 13.0-16.5 [facility] Blood lymphocytes/100 leukoc ytesOrdered By: Renard Burgos on 09-12-2022 Lymphocytes/100 WBC (Bld) 28.8 % 19-41 [facility] Blood monocytes/100 leukocyt esOrdered By: Renard Burgos on 09-12-2022 Monocytes/100 WBC (Bld) 6.1 % 0-10 [facility] Blood platelet mean volumeOr dered By: Renard Burgos on 09-12-2022 Platelet mean volume (Bld) [Entitic vol] 10.7 fL 6.2-12.0 [facility] Determination of erythrocyte mean corpuscular volume (MCV)Ordered By: Renard Burgos on 09-12-2022 MCV (RBC) [Entitic vol] 91.4 fL 80-94 [facility] Hematocrit Auto (Bld) [Volum e fraction]Ordered By: Renard Burgos on 09-12-2022 Hematocrit (Bld) [Volume fraction] 40.2 % 40-54 [facility] - Hematology and Cell countsOrdered By: Renard Burgos on 09-12-2022 Erythrocyte distribution width (RBC) [Entitic vol] 41.3 fL 35.1-43.9 [facility] Erythrocyte distribution width (RBC) [Ratio] 12.5 % 11.6-14.6 [facility] Immature granulocytes/100 WBC (Bld) 0.300 % 0.0-0.9 [facility] Comment on above: IG% - Immature Granu locytes (promyelocytes, myelocytes and metamyelocytes) > 1% indicates that a LEFT SHIFT is Present. MCH (RBC) [Entitic mass] 30.7 pg 27.0-32.0 [facility] Nucleated RBC/100 WBC (Bld) [Ratio] 0 % 0-5 [facility] MCHC Auto (RBC) [Mass/Vol]Or dered By: Renard Burgos on 09-12-2022 MCHC (RBC) [Mass/Vol] 33.6 g/dL 32-36 [facility] Platelets bldOrdered By: Lyubov Burgos on 09-12-2022 Platelets (Bld) [#/Vol] 197 10*3/uL 150-450 [facility] Absolute lymphocyte countOrd ered By: Renard Burgos on 09-05-2022 Lymphocytes Auto (Unsp spec) [#/Vol] 1.94 10*3/uL 0.83-4.51 [facility] Basophil percentageOrdered B y: Renard Burgos on 09-05-2022 Basophils/100 WBC (Bld) 0.5 % 0-1 [facility] Cholesterol [Mass/Vol] 136 mg/dL <200 [facility] Comment on above: <200 mg/dL Desirable 200-240 mg/dL Borderline >240 mg/dL High Risk Eosinophils/100 WBC (Bld) 0.4 % 0-5 [facility] Neutrophils (Bld) [#/Vol] 5.4 10*3/uL 2.0-7.7 [facility] Neutrophils/100 WBC (Bld) 67.5 % 47-70 [facility] Triglyceride [Mass/Vol] 304 mg/dL <199 [facility] Comment on above: The drugs N-Acetylcy steine and Metamizole may falsely depress this assay.Serum Triglycerides Reference Interval Normal <150 mg/dL Borderline high 150 - 199 mg/dL High 200 - 499 mg/dL Very High > or = 500 mg/dL WBC (Bld) [#/Vol] 7.9 10*3/uL 4.4-11.0 [facility] Blood erythrocytes count (nu mber/volume)Ordered By: Renard Burgos on 09-05-2022 RBC (Bld) [#/Vol] 4.28 10*6/uL 4.6-6.2 [facility] Blood hemoglobin measurement (mass/volume)Ordered By: Renard Burgos on 09-05-2022 Hemoglobin (Bld) [Mass/Vol] 12.9 g/dL 13.0-16.5 [facility] Blood lymphocytes/100 leukoc ytesOrdered By: Renard Burgos on 09-05-2022 Lymphocytes/100 WBC (Bld) 24.5 % 19-41 [facility] Blood monocytes/100 leukocyt esOrdered By: Renard Burgos on 09-05-2022 Monocytes/100 WBC (Bld) 6.6 % 0-10 [facility] Blood platelet mean volumeOr dered By: Renard Burgos on 09-05-2022 Platelet mean volume (Bld) [Entitic vol] 10.7 fL 6.2-12.0 [facility] Determination of erythrocyte mean corpuscular volume (MCV)Ordered By: Renard Burgos on 09-05-2022 MCV (RBC) [Entitic vol] 91.4 fL 80-94 [facility] Hematocrit Auto (Bld) [Volum e fraction]Ordered By: Renard Burgos on 09-05-2022 Hematocrit (Bld) [Volume fraction] 39.1 % 40-54 [facility] - Hematology and Cell countsOrdered By: Renard Burgos on 09-05-2022 Erythrocyte distribution width (RBC) [Entitic vol] 41.5 fL 35.1-43.9 [facility] Erythrocyte distribution width (RBC) [Ratio] 12.6 % 11.6-14.6 [facility] Immature granulocytes/100 WBC (Bld) 0.500 % 0.0-0.9 [facility] Comment on above: IG% - Immature Granu locytes (promyelocytes, myelocytes and metamyelocytes) > 1% indicates that a LEFT SHIFT is Present. MCH (RBC) [Entitic mass] 30.1 pg 27.0-32.0 [facility] Nucleated RBC/100 WBC (Bld) [Ratio] 0 % 0-5 [facility] MCHC Auto (RBC) [Mass/Vol]Or dered By: Renard Burgos on 09-05-2022 MCHC (RBC) [Mass/Vol] 33.0 g/dL 32-36 [facility] Platelets bldOrdered By: Lyubov Burgos on 09-05-2022 Platelets (Bld) [#/Vol] 200 10*3/uL 150-450 [facility] Serum or plasma cholesterol in HDL measurement (mass/volume)Ordered By: Renard Burgos on 09-05-2022 Cholesterol in HDL [Mass/Vol] 24 mg/dL >40 [facility] Comment on above: The drugs N-Acetylcy steine and Metamizole may falsely depress this assay. Reference Range HDL <40 mg/dL Low HDL Cholesterol HDL >or= 60 mg/dL High HDL Cholesterol Serum or plasma cholesterol in VLDL measurement (mass/volume)Ordered By: Renard Burgos on 09-05-2022 Cholesterol in VLDL [Mass/Vol] 61 mg/dL 5-40 [facility] Serum or plasma low density lipoprotein (LDL) cholesterol measurement (mass/volume)Ordered By: Renard Burgos on 09-05-2022 Cholesterol in LDL [Mass/Vol] 51 mg/dL 0-130 [facility] Absolute lymphocyte countOrd ered By: Renard Burgos on 08-29-2022 Lymphocytes Auto (Unsp spec) [#/Vol] 1.91 10*3/uL 0.83-4.51 [facility] Basophil percentageOrdered B y: Renrad Burgos on 08-29-2022 Basophils/100 WBC (Bld) 0.4 % 0-1 [facility] Eosinophils/100 WBC (Bld) 0.4 % 0-5 [facility] Neutrophils (Bld) [#/Vol] 4.8 10*3/uL 2.0-7.7 [facility] Neutrophils/100 WBC (Bld) 66.0 % 47-70 [facility] WBC (Bld) [#/Vol] 7.3 10*3/uL 4.4-11.0 [facility] Blood erythrocytes count (nu mber/volume)Ordered By: Renard Burgos on 08-29-2022 RBC (Bld) [#/Vol] 4.43 10*6/uL 4.6-6.2 [facility] Blood hemoglobin measurement (mass/volume)Ordered By: Renard Burgos on 08-29-2022 Hemoglobin (Bld) [Mass/Vol] 13.6 g/dL 13.0-16.5 [facility] Blood lymphocytes/100 leukoc ytesOrdered By: Renard Burgos on 08-29-2022 Lymphocytes/100 WBC (Bld) 26.2 % 19-41 [facility] Blood monocytes/100 leukocyt esOrdered By: Renard Burgos on 08-29-2022 Monocytes/100 WBC (Bld) 6.6 % 0-10 [facility] Blood platelet mean volumeOr dered By: Renard Burgos on 08-29-2022 Platelet mean volume (Bld) [Entitic vol] 11.0 fL 6.2-12.0 [facility] Determination of erythrocyte mean corpuscular volume (MCV)Ordered By: Renard Burgos on 08-29-2022 MCV (RBC) [Entitic vol] 92.1 fL 80-94 [facility] Hematocrit Auto (Bld) [Volum e fraction]Ordered By: Renard Burgos on 08-29-2022 Hematocrit (Bld) [Volume fraction] 40.8 % 40-54 [facility] - Hematology and Cell countsOrdered By: Renard Burgos on 08-29-2022 Erythrocyte distribution width (RBC) [Entitic vol] 42.0 fL 35.1-43.9 [facility] Erythrocyte distribution width (RBC) [Ratio] 12.4 % 11.6-14.6 [facility] Immature granulocytes/100 WBC (Bld) 0.400 % 0.0-0.9 [facility] Comment on above: IG% - Immature Granu locytes (promyelocytes, myelocytes and metamyelocytes) > 1% indicates that a LEFT SHIFT is Present. MCH (RBC) [Entitic mass] 30.7 pg 27.0-32.0 [facility] Nucleated RBC/100 WBC (Bld) [Ratio] 0 % 0-5 [facility] MCHC Auto (RBC) [Mass/Vol]Or dered By: Renard Burgos on 08-29-2022 MCHC (RBC) [Mass/Vol] 33.3 g/dL 32-36 [facility] Platelets bldOrdered By: Lyubov Burgos on 08-29-2022 Platelets (Bld) [#/Vol] 195 10*3/uL 150-450 [facility] Absolute lymphocyte countOrd ered By: Renard Burgos on 08-22-2022 Lymphocytes Auto (Unsp spec) [#/Vol] 1.86 10*3/uL 0.83-4.51 [facility] Basophil percentageOrdered B y: Renard Burgos on 08-22-2022 Basophils/100 WBC (Bld) 0.4 % 0-1 [facility] Eosinophils/100 WBC (Bld) 0.4 % 0-5 [facility] Neutrophils (Bld) [#/Vol] 6.5 10*3/uL 2.0-7.7 [facility] Neutrophils/100 WBC (Bld) 70.5 % 47-70 [facility] WBC (Bld) [#/Vol] 9.3 10*3/uL 4.4-11.0 [facility] Blood erythrocytes count (nu mber/volume)Ordered By: Renard Burgos on 08-22-2022 RBC (Bld) [#/Vol] 4.55 10*6/uL 4.6-6.2 [facility] Blood hemoglobin measurement (mass/volume)Ordered By: Renard Burgos on 08-22-2022 Hemoglobin (Bld) [Mass/Vol] 14.1 g/dL 13.0-16.5 [facility] Blood lymphocytes/100 leukoc ytesOrdered By: Renard Burgos on 08-22-2022 Lymphocytes/100 WBC (Bld) 20.1 % 19-41 [facility] Blood monocytes/100 leukocyt esOrdered By: Renard Burgos on 08-22-2022 Monocytes/100 WBC (Bld) 8.3 % 0-10 [facility] Blood platelet mean volumeOr dered By: Renard Burgos on 08-22-2022 Platelet mean volume (Bld) [Entitic vol] 10.8 fL 6.2-12.0 [facility] Determination of erythrocyte mean corpuscular volume (MCV)Ordered By: Renard Burgos on 08-22-2022 MCV (RBC) [Entitic vol] 91.9 fL 80-94 [facility] Hematocrit Auto (Bld) [Volum e fraction]Ordered By: Renard Burgos on 08-22-2022 Hematocrit (Bld) [Volume fraction] 41.8 % 40-54 [facility] - Hematology and Cell countsOrdered By: Renard Burgos on 08-22-2022 Erythrocyte distribution width (RBC) [Entitic vol] 42.5 fL 35.1-43.9 [facility] Erythrocyte distribution width (RBC) [Ratio] 12.6 % 11.6-14.6 [facility] Immature granulocytes/100 WBC (Bld) 0.300 % 0.0-0.9 [facility] Comment on above: IG% - Immature Granu locytes (promyelocytes, myelocytes and metamyelocytes) > 1% indicates that a LEFT SHIFT is Present. MCH (RBC) [Entitic mass] 31.0 pg 27.0-32.0 [facility] Nucleated RBC/100 WBC (Bld) [Ratio] 0 % 0-5 [facility] MCHC Auto (RBC) [Mass/Vol]Or dered By: Renard Burgos on 08-22-2022 MCHC (RBC) [Mass/Vol] 33.7 g/dL 32-36 [facility] Platelets bldOrdered By: Lyubov Burgos on 08-22-2022 Platelets (Bld) [#/Vol] 197 10*3/uL 150-450 [facility] Absolute lymphocyte countOrd ered By: Renard Burgos on 08-15-2022 Lymphocytes Auto (Unsp spec) [#/Vol] 1.88 10*3/uL 0.83-4.51 [facility] Basophil percentageOrdered B y: Renard Burgos on 08-15-2022 Basophils/100 WBC (Bld) 0.5 % 0-1 [facility] Eosinophils/100 WBC (Bld) 0.5 % 0-5 [facility] Neutrophils (Bld) [#/Vol] 5.1 10*3/uL 2.0-7.7 [facility] Neutrophils/100 WBC (Bld) 65.0 % 47-70 [facility] WBC (Bld) [#/Vol] 7.9 10*3/uL 4.4-11.0 [facility] Blood erythrocytes count (nu mber/volume)Ordered By: Renard Burgos on 08-15-2022 RBC (Bld) [#/Vol] 4.48 10*6/uL 4.6-6.2 [facility] Blood hemoglobin measurement (mass/volume)Ordered By: Renard Burgos on 08-15-2022 Hemoglobin (Bld) [Mass/Vol] 13.7 g/dL 13.0-16.5 [facility] Blood lymphocytes/100 leukoc ytesOrdered By: Renard Burgos on 08-15-2022 Lymphocytes/100 WBC (Bld) 23.9 % 19-41 [facility] Blood monocytes/100 leukocyt esOrdered By: Renard Burgos on 08-15-2022 Monocytes/100 WBC (Bld) 9.8 % 0-10 [facility] Blood platelet mean volumeOr dered By: Renard Burgos on 08-15-2022 Platelet mean volume (Bld) [Entitic vol] 10.7 fL 6.2-12.0 [facility] Determination of erythrocyte mean corpuscular volume (MCV)Ordered By: Renard Burgos on 08-15-2022 MCV (RBC) [Entitic vol] 91.1 fL 80-94 [facility] Hematocrit Auto (Bld) [Volum e fraction]Ordered By: Renard Burgos on 08-15-2022 Hematocrit (Bld) [Volume fraction] 40.8 % 40-54 [facility] - Hematology and Cell countsOrdered By: Renard Burgos on 08-15-2022 Erythrocyte distribution width (RBC) [Entitic vol] 41.0 fL 35.1-43.9 [facility] Erythrocyte distribution width (RBC) [Ratio] 12.4 % 11.6-14.6 [facility] Immature granulocytes/100 WBC (Bld) 0.300 % 0.0-0.9 [facility] Comment on above: IG% - Immature Granu locytes (promyelocytes, myelocytes and metamyelocytes) > 1% indicates that a LEFT SHIFT is Present. MCH (RBC) [Entitic mass] 30.6 pg 27.0-32.0 [facility] Nucleated RBC/100 WBC (Bld) [Ratio] 0 % 0-5 [facility] MCHC Auto (RBC) [Mass/Vol]Or dered By: Renard Burgos on 08-15-2022 MCHC (RBC) [Mass/Vol] 33.6 g/dL 32-36 [facility] Platelets bldOrdered By: Lyubov Burgos on 08-15-2022 Platelets (Bld) [#/Vol] 212 10*3/uL 150-450 [facility] Absolute lymphocyte countOrd ered By: Renard Burgos on 08-08-2022 Lymphocytes Auto (Unsp spec) [#/Vol] 1.96 10*3/uL 0.83-4.51 [facility] Basophil percentageOrdered B y: Renard Burgos on 08-08-2022 Basophils/100 WBC (Bld) 0.5 % 0-1 [facility] Eosinophils/100 WBC (Bld) 0.5 % 0-5 [facility] Neutrophils (Bld) [#/Vol] 4.7 10*3/uL 2.0-7.7 [facility] Neutrophils/100 WBC (Bld) 64.1 % 47-70 [facility] WBC (Bld) [#/Vol] 7.4 10*3/uL 4.4-11.0 [facility] Blood erythrocytes count (nu mber/volume)Ordered By: Renard Burgos on 08-08-2022 RBC (Bld) [#/Vol] 4.44 10*6/uL 4.6-6.2 [facility] Blood hemoglobin measurement (mass/volume)Ordered By: Renard Burgos on 08-08-2022 Hemoglobin (Bld) [Mass/Vol] 13.6 g/dL 13.0-16.5 [facility] Blood lymphocytes/100 leukoc ytesOrdered By: Renard Burgos on 08-08-2022 Lymphocytes/100 WBC (Bld) 26.5 % 19-41 [facility] Blood monocytes/100 leukocyt esOrdered By: Renard Burgos on 08-08-2022 Monocytes/100 WBC (Bld) 8.1 % 0-10 [facility] Blood platelet mean volumeOr dered By: Renard Burgos on 08-08-2022 Platelet mean volume (Bld) [Entitic vol] 10.8 fL 6.2-12.0 [facility] Determination of erythrocyte mean corpuscular volume (MCV)Ordered By: Renard Burgos on 08-08-2022 MCV (RBC) [Entitic vol] 91.7 fL 80-94 [facility] Hematocrit Auto (Bld) [Volum e fraction]Ordered By: Reanrd Burgos on 08-08-2022 Hematocrit (Bld) [Volume fraction] 40.7 % 40-54 [facility] - Hematology and Cell countsOrdered By: Renard Burgos on 08-08-2022 Erythrocyte distribution width (RBC) [Entitic vol] 42.7 fL 35.1-43.9 [facility] Erythrocyte distribution width (RBC) [Ratio] 12.6 % 11.6-14.6 [facility] Immature granulocytes/100 WBC (Bld) 0.300 % 0.0-0.9 [facility] Comment on above: IG% - Immature Granu locytes (promyelocytes, myelocytes and metamyelocytes) > 1% indicates that a LEFT SHIFT is Present. MCH (RBC) [Entitic mass] 30.6 pg 27.0-32.0 [facility] Nucleated RBC/100 WBC (Bld) [Ratio] 0 % 0-5 [facility] MCHC Auto (RBC) [Mass/Vol]Or dered By: Renard Burgos on 08-08-2022 MCHC (RBC) [Mass/Vol] 33.4 g/dL 32-36 [facility] Platelets bldOrdered By: Lyubov Burgos on 08-08-2022 Platelets (Bld) [#/Vol] 187 10*3/uL 150-450 [facility] Absolute lymphocyte countOrd ered By: Renard Burgos on 08-01-2022 Lymphocytes Auto (Unsp spec) [#/Vol] 2.09 10*3/uL 0.83-4.51 [facility] Basophil percentageOrdered B y: Renard Burgos on 08-01-2022 Basophils/100 WBC (Bld) 0.4 % 0-1 [facility] Eosinophils/100 WBC (Bld) 0.4 % 0-5 [facility] Neutrophils (Bld) [#/Vol] 6.6 10*3/uL 2.0-7.7 [facility] Neutrophils/100 WBC (Bld) 69.1 % 47-70 [facility] WBC (Bld) [#/Vol] 9.5 10*3/uL 4.4-11.0 [facility] Blood erythrocytes count (nu mber/volume)Ordered By: Renard Burgos on 08-01-2022 RBC (Bld) [#/Vol] 4.48 10*6/uL 4.6-6.2 [facility] Blood hemoglobin measurement (mass/volume)Ordered By: Renard Burgos on 08-01-2022 Hemoglobin (Bld) [Mass/Vol] 13.9 g/dL 13.0-16.5 [facility] Blood lymphocytes/100 leukoc ytesOrdered By: Renard Burgos on 08-01-2022 Lymphocytes/100 WBC (Bld) 21.9 % 19-41 [facility] Blood monocytes/100 leukocyt esOrdered By: Renard Burgos on 08-01-2022 Monocytes/100 WBC (Bld) 7.9 % 0-10 [facility] Blood platelet mean volumeOr dered By: Renard Burgos on 08-01-2022 Platelet mean volume (Bld) [Entitic vol] 11.0 fL 6.2-12.0 [facility] Determination of erythrocyte mean corpuscular volume (MCV)Ordered By: Renard Burgos on 08-01-2022 MCV (RBC) [Entitic vol] 91.5 fL 80-94 [facility] Hematocrit Auto (Bld) [Volum e fraction]Ordered By: Renard Burgos on 08-01-2022 Hematocrit (Bld) [Volume fraction] 41.0 % 40-54 [facility] - Hematology and Cell countsOrdered By: Renard Burgos on 08-01-2022 Erythrocyte distribution width (RBC) [Entitic vol] 41.6 fL 35.1-43.9 [facility] Erythrocyte distribution width (RBC) [Ratio] 12.5 % 11.6-14.6 [facility] Immature granulocytes/100 WBC (Bld) 0.300 % 0.0-0.9 [facility] Comment on above: IG% - Immature Granu locytes (promyelocytes, myelocytes and metamyelocytes) > 1% indicates that a LEFT SHIFT is Present. MCH (RBC) [Entitic mass] 31.0 pg 27.0-32.0 [facility] Nucleated RBC/100 WBC (Bld) [Ratio] 0 % 0-5 [facility] MCHC Auto (RBC) [Mass/Vol]Or dered By: Renard Burgos on 08-01-2022 MCHC (RBC) [Mass/Vol] 33.9 g/dL 32-36 [facility] Platelets bldOrdered By: Lyubov Burgos on 08-01-2022 Platelets (Bld) [#/Vol] 208 10*3/uL 150-450 [facility] Absolute lymphocyte countOrd ered By: Renard Burgos on 07-25-2022 Lymphocytes Auto (Unsp spec) [#/Vol] 2.16 10*3/uL 0.83-4.51 [facility] Basophil percentageOrdered B y: Renard Burgos on 07-25-2022 Basophils/100 WBC (Bld) 0.6 % 0-1 [facility] Eosinophils/100 WBC (Bld) 0.6 % 0-5 [facility] Neutrophils (Bld) [#/Vol] 5.4 10*3/uL 2.0-7.7 [facility] Neutrophils/100 WBC (Bld) 64.5 % 47-70 [facility] WBC (Bld) [#/Vol] 8.4 10*3/uL 4.4-11.0 [facility] Blood erythrocytes count (nu mber/volume)Ordered By: Renard Burgos on 07-25-2022 RBC (Bld) [#/Vol] 4.45 10*6/uL 4.6-6.2 [facility] Blood hemoglobin measurement (mass/volume)Ordered By: Renard Burgos on 07-25-2022 Hemoglobin (Bld) [Mass/Vol] 13.4 g/dL 13.0-16.5 [facility] Blood lymphocytes/100 leukoc ytesOrdered By: Renard Burgos on 07-25-2022 Lymphocytes/100 WBC (Bld) 25.7 % 19-41 [facility] Blood monocytes/100 leukocyt esOrdered By: Renard Burgos on 07-25-2022 Monocytes/100 WBC (Bld) 8.4 % 0-10 [facility] Blood platelet mean volumeOr dered By: Renard Burgos on 07-25-2022 Platelet mean volume (Bld) [Entitic vol] 11.0 fL 6.2-12.0 [facility] Determination of erythrocyte mean corpuscular volume (MCV)Ordered By: Renard Burgos on 07-25-2022 MCV (RBC) [Entitic vol] 92.8 fL 80-94 [facility] Hematocrit Auto (Bld) [Volum e fraction]Ordered By: Renard Burgos on 07-25-2022 Hematocrit (Bld) [Volume fraction] 41.3 % 40-54 [facility] - Hematology and Cell countsOrdered By: Renard Burgos on 07-25-2022 Erythrocyte distribution width (RBC) [Entitic vol] 42.5 fL 35.1-43.9 [facility] Erythrocyte distribution width (RBC) [Ratio] 12.5 % 11.6-14.6 [facility] Immature granulocytes/100 WBC (Bld) 0.200 % 0.0-0.9 [facility] Comment on above: IG% - Immature Granu locytes (promyelocytes, myelocytes and metamyelocytes) > 1% indicates that a LEFT SHIFT is Present. MCH (RBC) [Entitic mass] 30.1 pg 27.0-32.0 [facility] Nucleated RBC/100 WBC (Bld) [Ratio] 0 % 0-5 [facility] MCHC Auto (RBC) [Mass/Vol]Or dered By: Renard Burgos on 07-25-2022 MCHC (RBC) [Mass/Vol] 32.4 g/dL 32-36 [facility] Platelets bldOrdered By: Lyubov Burgos on 07-25-2022 Platelets (Bld) [#/Vol] 200 10*3/uL 150-450 [facility] No Panel InformationOrdered By: Renard Burgos on 07-19-2022 Vitamin D 25-Hydroxy 34.2 ng/mL [facility] Comment on above: Vitamin D 25(OH) Sta tus Range Deficiency <20 ng/mL (50nmol/L) Insufficiency 20 - 30 ng/mL (50 - 75 nmol/L) Sufficiency 30 - 100 ng/mL (75 - 250 nmol/L) Toxicity >100 ng/mL (>250 nmol/L) Absolute lymphocyte countOrd ered By: Renard Burgos on 07-18-2022 Lymphocytes Auto (Unsp spec) [#/Vol] 2.48 10*3/uL 0.83-4.51 [facility] Basophil percentageOrdered B y: Renard Burgos on 07-18-2022 Basophils/100 WBC (Bld) 0.5 % 0-1 [facility] Eosinophils/100 WBC (Bld) 0.6 % 0-5 [facility] Neutrophils (Bld) [#/Vol] 5.9 10*3/uL 2.0-7.7 [facility] Neutrophils/100 WBC (Bld) 61.6 % 47-70 [facility] WBC (Bld) [#/Vol] 9.6 10*3/uL 4.4-11.0 [facility] Blood erythrocytes count (nu mber/volume)Ordered By: Renard Burgos on 07-18-2022 RBC (Bld) [#/Vol] 4.56 10*6/uL 4.6-6.2 [facility] Blood hemoglobin measurement (mass/volume)Ordered By: Renard Burgos on 07-18-2022 Hemoglobin (Bld) [Mass/Vol] 13.9 g/dL 13.0-16.5 [facility] Blood lymphocytes/100 leukoc ytesOrdered By: Renard Burgos on 07-18-2022 Lymphocytes/100 WBC (Bld) 25.9 % 19-41 [facility] Blood monocytes/100 leukocyt esOrdered By: Renard Burgos on 07-18-2022 Monocytes/100 WBC (Bld) 11.0 % 0-10 [facility] Blood platelet mean volumeOr dered By: Renard Burgos on 07-18-2022 Platelet mean volume (Bld) [Entitic vol] 11.3 fL 6.2-12.0 [facility] Determination of erythrocyte mean corpuscular volume (MCV)Ordered By: Renard Burgos on 07-18-2022 MCV (RBC) [Entitic vol] 93.9 fL 80-94 [facility] Hematocrit Auto (Bld) [Volum e fraction]Ordered By: Renard Burgos on 07-18-2022 Hematocrit (Bld) [Volume fraction] 42.8 % 40-54 [facility] - Hematology and Cell countsOrdered By: Renard Burgos on 07-18-2022 Erythrocyte distribution width (RBC) [Entitic vol] 44.0 fL 35.1-43.9 [facility] Erythrocyte distribution width (RBC) [Ratio] 12.8 % 11.6-14.6 [facility] Immature granulocytes/100 WBC (Bld) 0.400 % 0.0-0.9 [facility] Comment on above: IG% - Immature Granu locytes (promyelocytes, myelocytes and metamyelocytes) > 1% indicates that a LEFT SHIFT is Present. MCH (RBC) [Entitic mass] 30.5 pg 27.0-32.0 [facility] Nucleated RBC/100 WBC (Bld) [Ratio] 0 % 0-5 [facility] MCHC Auto (RBC) [Mass/Vol]Or dered By: Renard Burgos on 07-18-2022 MCHC (RBC) [Mass/Vol] 32.5 g/dL 32-36 [facility] Platelets bldOrdered By: Lyubov Burgos on 07-18-2022 Platelets (Bld) [#/Vol] 207 10*3/uL 150-450 [facility] Absolute lymphocyte countOrd ered By: Renard Burgos on 07-11-2022 Lymphocytes Auto (Unsp spec) [#/Vol] 2.37 10*3/uL 0.83-4.51 [facility] Basophil percentageOrdered B y: Renard Burgos on 07-11-2022 Basophils/100 WBC (Bld) 0.6 % 0-1 [facility] Eosinophils/100 WBC (Bld) 0.5 % 0-5 [facility] Neutrophils (Bld) [#/Vol] 5.3 10*3/uL 2.0-7.7 [facility] Neutrophils/100 WBC (Bld) 61.8 % 47-70 [facility] WBC (Bld) [#/Vol] 8.5 10*3/uL 4.4-11.0 [facility] Blood erythrocytes count (nu mber/volume)Ordered By: Renard Burgos on 07-11-2022 RBC (Bld) [#/Vol] 4.83 10*6/uL 4.6-6.2 [facility] Blood hemoglobin measurement (mass/volume)Ordered By: Renard Burgos on 07-11-2022 Hemoglobin (Bld) [Mass/Vol] 14.7 g/dL 13.0-16.5 [facility] Blood lymphocytes/100 leukoc ytesOrdered By: Renard Burgos on 07-11-2022 Lymphocytes/100 WBC (Bld) 27.8 % 19-41 [facility] Blood monocytes/100 leukocyt esOrdered By: Renard Burgos on 07-11-2022 Monocytes/100 WBC (Bld) 8.8 % 0-10 [facility] Blood platelet mean volumeOr dered By: Renard Burgos on 07-11-2022 Platelet mean volume (Bld) [Entitic vol] 10.6 fL 6.2-12.0 [facility] Determination of erythrocyte mean corpuscular volume (MCV)Ordered By: Renard Burgos on 07-11-2022 MCV (RBC) [Entitic vol] 90.7 fL 80-94 [facility] Hematocrit Auto (Bld) [Volum e fraction]Ordered By: Renard Burgos on 07-11-2022 Hematocrit (Bld) [Volume fraction] 43.8 % 40-54 [facility] - Hematology and Cell countsOrdered By: Renard Burgos on 07-11-2022 Erythrocyte distribution width (RBC) [Entitic vol] 41.2 fL 35.1-43.9 [facility] Erythrocyte distribution width (RBC) [Ratio] 12.7 % 11.6-14.6 [facility] Immature granulocytes/100 WBC (Bld) 0.500 % 0.0-0.9 [facility] Comment on above: IG% - Immature Granu locytes (promyelocytes, myelocytes and metamyelocytes) > 1% indicates that a LEFT SHIFT is Present. MCH (RBC) [Entitic mass] 30.4 pg 27.0-32.0 [facility] Nucleated RBC/100 WBC (Bld) [Ratio] 0 % 0-5 [facility] MCHC Auto (RBC) [Mass/Vol]Or dered By: Renard Burgos on 07-11-2022 MCHC (RBC) [Mass/Vol] 33.6 g/dL 32-36 [facility] Platelets bldOrdered By: Lyubov Burgos on 07-11-2022 Platelets (Bld) [#/Vol] 207 10*3/uL 150-450 [facility] Absolute lymphocyte countOrd ered By: Renard Burgos on 07-04-2022 Lymphocytes Auto (Unsp spec) [#/Vol] 1.87 10*3/uL 0.83-4.51 [facility] Basophil percentageOrdered B y: Renard Burgos on 07-04-2022 Basophils/100 WBC (Bld) 0.4 % 0-1 [facility] Eosinophils/100 WBC (Bld) 0.5 % 0-5 [facility] Neutrophils (Bld) [#/Vol] 7.5 10*3/uL 2.0-7.7 [facility] Neutrophils/100 WBC (Bld) 72.8 % 47-70 [facility] WBC (Bld) [#/Vol] 10.3 10*3/uL 4.4-11.0 [facility] Blood erythrocytes count (nu mber/volume)Ordered By: Renard Burgos on 07-04-2022 RBC (Bld) [#/Vol] 4.45 10*6/uL 4.6-6.2 [facility] Blood hemoglobin measurement (mass/volume)Ordered By: Renard Burgos on 07-04-2022 Hemoglobin (Bld) [Mass/Vol] 13.5 g/dL 13.0-16.5 [facility] Blood lymphocytes/100 leukoc ytesOrdered By: Renard Burgos on 07-04-2022 Lymphocytes/100 WBC (Bld) 18.1 % 19-41 [facility] Blood monocytes/100 leukocyt esOrdered By: Renard Burgos on 07-04-2022 Monocytes/100 WBC (Bld) 7.7 % 0-10 [facility] Blood platelet mean volumeOr dered By: Renard Burgos on 07-04-2022 Platelet mean volume (Bld) [Entitic vol] 11.3 fL 6.2-12.0 [facility] Determination of erythrocyte mean corpuscular volume (MCV)Ordered By: Renard Burgos on 07-04-2022 MCV (RBC) [Entitic vol] 93.0 fL 80-94 [facility] Hematocrit Auto (Bld) [Volum e fraction]Ordered By: Renard Burgos on 07-04-2022 Hematocrit (Bld) [Volume fraction] 41.4 % 40-54 [facility] - Hematology and Cell countsOrdered By: Renard Burgos on 07-04-2022 Erythrocyte distribution width (RBC) [Entitic vol] 43.0 fL 35.1-43.9 [facility] Erythrocyte distribution width (RBC) [Ratio] 12.5 % 11.6-14.6 [facility] Immature granulocytes/100 WBC (Bld) 0.500 % 0.0-0.9 [facility] Comment on above: IG% - Immature Granu locytes (promyelocytes, myelocytes and metamyelocytes) > 1% indicates that a LEFT SHIFT is Present. MCH (RBC) [Entitic mass] 30.3 pg 27.0-32.0 [facility] Nucleated RBC/100 WBC (Bld) [Ratio] 0 % 0-5 [facility] MCHC Auto (RBC) [Mass/Vol]Or dered By: Renard Burgos on 07-04-2022 MCHC (RBC) [Mass/Vol] 32.6 g/dL 32-36 [facility] Platelets bldOrdered By: Lyubov Burgos on 07-04-2022 Platelets (Bld) [#/Vol] 211 10*3/uL 150-450 [facility] Absolute lymphocyte countOrd ered By: Renard Burgos on 06-27-2022 Lymphocytes Auto (Unsp spec) [#/Vol] 1.83 10*3/uL 0.83-4.51 [facility] Basophil percentageOrdered B y: Renard Burgos on 06-27-2022 Basophils/100 WBC (Bld) 0.4 % 0-1 [facility] Eosinophils/100 WBC (Bld) 0.5 % 0-5 [facility] Neutrophils (Bld) [#/Vol] 5.0 10*3/uL 2.0-7.7 [facility] Neutrophils/100 WBC (Bld) 67.6 % 47-70 [facility] WBC (Bld) [#/Vol] 7.4 10*3/uL 4.4-11.0 [facility] Blood erythrocytes count (nu mber/volume)Ordered By: Renard Burgos on 06-27-2022 RBC (Bld) [#/Vol] 4.52 10*6/uL 4.6-6.2 [facility] Blood hemoglobin measurement (mass/volume)Ordered By: Renard Burgos on 06-27-2022 Hemoglobin (Bld) [Mass/Vol] 13.9 g/dL 13.0-16.5 [facility] Blood lymphocytes/100 leukoc ytesOrdered By: Renard Burgos on 06-27-2022 Lymphocytes/100 WBC (Bld) 24.7 % 19-41 [facility] Blood monocytes/100 leukocyt esOrdered By: Renard Burgos on 06-27-2022 Monocytes/100 WBC (Bld) 6.4 % 0-10 [facility] Blood platelet mean volumeOr dered By: Renard Burgos on 06-27-2022 Platelet mean volume (Bld) [Entitic vol] 10.7 fL 6.2-12.0 [facility] Determination of erythrocyte mean corpuscular volume (MCV)Ordered By: Renard Burgos on 06-27-2022 MCV (RBC) [Entitic vol] 91.2 fL 80-94 [facility] Hematocrit Auto (Bld) [Volum e fraction]Ordered By: Renard Burgos on 06-27-2022 Hematocrit (Bld) [Volume fraction] 41.2 % 40-54 [facility] - Hematology and Cell countsOrdered By: Renard Burgos on 06-27-2022 Erythrocyte distribution width (RBC) [Entitic vol] 41.9 fL 35.1-43.9 [facility] Erythrocyte distribution width (RBC) [Ratio] 12.7 % 11.6-14.6 [facility] Immature granulocytes/100 WBC (Bld) 0.400 % 0.0-0.9 [facility] Comment on above: IG% - Immature Granu locytes (promyelocytes, myelocytes and metamyelocytes) > 1% indicates that a LEFT SHIFT is Present. MCH (RBC) [Entitic mass] 30.8 pg 27.0-32.0 [facility] Nucleated RBC/100 WBC (Bld) [Ratio] 0 % 0-5 [facility] MCHC Auto (RBC) [Mass/Vol]Or dered By: Renard Burgos on 06-27-2022 MCHC (RBC) [Mass/Vol] 33.7 g/dL 32-36 [facility] Platelets bldOrdered By: Lyubov Burgos on 06-27-2022 Platelets (Bld) [#/Vol] 200 10*3/uL 150-450 [facility] Absolute lymphocyte countOrd ered By: Renard Burgos on 06-20-2022 Lymphocytes Auto (Unsp spec) [#/Vol] 1.57 10*3/uL 0.83-4.51 [facility] Basophil percentageOrdered B y: Renard Burgos on 06-20-2022 Basophils/100 WBC (Bld) 0.2 % 0-1 [facility] Eosinophils/100 WBC (Bld) 0.2 % 0-5 [facility] Neutrophils (Bld) [#/Vol] 6.5 10*3/uL 2.0-7.7 [facility] Neutrophils/100 WBC (Bld) 74.5 % 47-70 [facility] WBC (Bld) [#/Vol] 8.8 10*3/uL 4.4-11.0 [facility] Blood erythrocytes count (nu mber/volume)Ordered By: Renard Burgos on 06-20-2022 RBC (Bld) [#/Vol] 4.79 10*6/uL 4.6-6.2 [facility] Blood hemoglobin measurement (mass/volume)Ordered By: Renard Burgos on 06-20-2022 Hemoglobin (Bld) [Mass/Vol] 14.6 g/dL 13.0-16.5 [facility] Blood lymphocytes/100 leukoc ytesOrdered By: Renard Burgos on 06-20-2022 Lymphocytes/100 WBC (Bld) 17.8 % 19-41 [facility] Blood monocytes/100 leukocyt esOrdered By: Renard Burgos on 06-20-2022 Monocytes/100 WBC (Bld) 7.0 % 0-10 [facility] Blood platelet mean volumeOr dered By: Renard Burgos on 06-20-2022 Platelet mean volume (Bld) [Entitic vol] 11.1 fL 6.2-12.0 [facility] Determination of erythrocyte mean corpuscular volume (MCV)Ordered By: Renard Burgos on 06-20-2022 MCV (RBC) [Entitic vol] 92.1 fL 80-94 [facility] Hematocrit Auto (Bld) [Volum e fraction]Ordered By: Renard Burgos on 06-20-2022 Hematocrit (Bld) [Volume fraction] 44.1 % 40-54 [facility] - Hematology and Cell countsOrdered By: Renard Burgos on 06-20-2022 Erythrocyte distribution width (RBC) [Entitic vol] 42.4 fL 35.1-43.9 [facility] Erythrocyte distribution width (RBC) [Ratio] 12.6 % 11.6-14.6 [facility] Immature granulocytes/100 WBC (Bld) 0.300 % 0.0-0.9 [facility] Comment on above: IG% - Immature Granu locytes (promyelocytes, myelocytes and metamyelocytes) > 1% indicates that a LEFT SHIFT is Present. MCH (RBC) [Entitic mass] 30.5 pg 27.0-32.0 [facility] Nucleated RBC/100 WBC (Bld) [Ratio] 0 % 0-5 [facility] MCHC Auto (RBC) [Mass/Vol]Or dered By: Renard Burgos on 06-20-2022 MCHC (RBC) [Mass/Vol] 33.1 g/dL 32-36 [facility] Platelets bldOrdered By: Lyubov Burgos on 06-20-2022 Platelets (Bld) [#/Vol] 207 10*3/uL 150-450 [facility] Absolute lymphocyte countOrd ered By: Renard Burgos on 06-13-2022 Lymphocytes Auto (Unsp spec) [#/Vol] 2.28 10*3/uL 0.83-4.51 [facility] Basophil percentageOrdered B y: Renard Burgos on 06-13-2022 Basophils/100 WBC (Bld) 0.5 % 0-1 [facility] Eosinophils/100 WBC (Bld) 0.4 % 0-5 [facility] Neutrophils (Bld) [#/Vol] 6.0 10*3/uL 2.0-7.7 [facility] Neutrophils/100 WBC (Bld) 65.6 % 47-70 [facility] WBC (Bld) [#/Vol] 9.2 10*3/uL 4.4-11.0 [facility] Blood erythrocytes count (nu mber/volume)Ordered By: Renard Burgos on 06-13-2022 RBC (Bld) [#/Vol] 4.55 10*6/uL 4.6-6.2 [facility] Blood hemoglobin measurement (mass/volume)Ordered By: Renard Burgos on 06-13-2022 Hemoglobin (Bld) [Mass/Vol] 13.7 g/dL 13.0-16.5 [facility] Blood lymphocytes/100 leukoc ytesOrdered By: Renard Burgos on 06-13-2022 Lymphocytes/100 WBC (Bld) 24.9 % 19-41 [facility] Blood monocytes/100 leukocyt esOrdered By: Renard Burgos on 06-13-2022 Monocytes/100 WBC (Bld) 8.2 % 0-10 [facility] Blood platelet mean volumeOr dered By: Renard Burgos on 06-13-2022 Platelet mean volume (Bld) [Entitic vol] 10.9 fL 6.2-12.0 [facility] Determination of erythrocyte mean corpuscular volume (MCV)Ordered By: Renard Burgos on 06-13-2022 MCV (RBC) [Entitic vol] 92.3 fL 80-94 [facility] Hematocrit Auto (Bld) [Volum e fraction]Ordered By: Renard Burgos on 06-13-2022 Hematocrit (Bld) [Volume fraction] 42.0 % 40-54 [facility] - Hematology and Cell countsOrdered By: Renard Burgos on 06-13-2022 Erythrocyte distribution width (RBC) [Entitic vol] 43.2 fL 35.1-43.9 [facility] Erythrocyte distribution width (RBC) [Ratio] 12.8 % 11.6-14.6 [facility] Immature granulocytes/100 WBC (Bld) 0.400 % 0.0-0.9 [facility] Comment on above: IG% - Immature Granu locytes (promyelocytes, myelocytes and metamyelocytes) > 1% indicates that a LEFT SHIFT is Present. MCH (RBC) [Entitic mass] 30.1 pg 27.0-32.0 [facility] Nucleated RBC/100 WBC (Bld) [Ratio] 0 % 0-5 [facility] MCHC Auto (RBC) [Mass/Vol]Or dered By: Renard Burgos on 06-13-2022 MCHC (RBC) [Mass/Vol] 32.6 g/dL 32-36 [facility] Platelets bldOrdered By: Lyubov Burgos on 06-13-2022 Platelets (Bld) [#/Vol] 203 10*3/uL 150-450 [facility] Absolute lymphocyte countOrd ered By: Renard Burgos on 06-06-2022 Lymphocytes Auto (Unsp spec) [#/Vol] 2.02 10*3/uL 0.83-4.51 [facility] Basophil percentageOrdered B y: Renard Burgos on 06-06-2022 Basophils/100 WBC (Bld) 0.5 % 0-1 [facility] Eosinophils/100 WBC (Bld) 0.7 % 0-5 [facility] Neutrophils (Bld) [#/Vol] 4.7 10*3/uL 2.0-7.7 [facility] Neutrophils/100 WBC (Bld) 63.3 % 47-70 [facility] WBC (Bld) [#/Vol] 7.4 10*3/uL 4.4-11.0 [facility] Blood erythrocytes count (nu mber/volume)Ordered By: Renard Burgos on 06-06-2022 RBC (Bld) [#/Vol] 4.57 10*6/uL 4.6-6.2 [facility] Blood hemoglobin measurement (mass/volume)Ordered By: Renard Burgos on 06-06-2022 Hemoglobin (Bld) [Mass/Vol] 14.0 g/dL 13.0-16.5 [facility] Blood lymphocytes/100 leukoc ytesOrdered By: Renard Burgos on 06-06-2022 Lymphocytes/100 WBC (Bld) 27.2 % 19-41 [facility] Blood monocytes/100 leukocyt esOrdered By: Renard Burgos on 06-06-2022 Monocytes/100 WBC (Bld) 7.9 % 0-10 [facility] Blood platelet mean volumeOr dered By: Renadr Burgos on 06-06-2022 Platelet mean volume (Bld) [Entitic vol] 10.7 fL 6.2-12.0 [facility] Determination of erythrocyte mean corpuscular volume (MCV)Ordered By: Renard Burgos on 06-06-2022 MCV (RBC) [Entitic vol] 90.2 fL 80-94 [facility] Hematocrit Auto (Bld) [Volum e fraction]Ordered By: Renard Burgos on 06-06-2022 Hematocrit (Bld) [Volume fraction] 41.2 % 40-54 [facility] - Hematology and Cell countsOrdered By: Renard Burgos on 06-06-2022 Erythrocyte distribution width (RBC) [Entitic vol] 41.5 fL 35.1-43.9 [facility] Erythrocyte distribution width (RBC) [Ratio] 12.7 % 11.6-14.6 [facility] Immature granulocytes/100 WBC (Bld) 0.400 % 0.0-0.9 [facility] Comment on above: IG% - Immature Granu locytes (promyelocytes, myelocytes and metamyelocytes) > 1% indicates that a LEFT SHIFT is Present. MCH (RBC) [Entitic mass] 30.6 pg 27.0-32.0 [facility] Nucleated RBC/100 WBC (Bld) [Ratio] 0 % 0-5 [facility] MCHC Auto (RBC) [Mass/Vol]Or dered By: Renard Burgos on 06-06-2022 MCHC (RBC) [Mass/Vol] 34.0 g/dL 32-36 [facility] Platelets bldOrdered By: Lyubov Burgos on 06-06-2022 Platelets (Bld) [#/Vol] 197 10*3/uL 150-450 [facility] Absolute lymphocyte countOrd ered By: Renard Burgos on 05-30-2022 Lymphocytes Auto (Unsp spec) [#/Vol] 2.32 10*3/uL 0.83-4.51 [facility] Basophil percentageOrdered B y: Renard Burgos on 05-30-2022 Basophils/100 WBC (Bld) 0.4 % 0-1 [facility] Eosinophils/100 WBC (Bld) 0.5 % 0-5 [facility] Neutrophils (Bld) [#/Vol] 5.2 10*3/uL 2.0-7.7 [facility] Neutrophils/100 WBC (Bld) 62.6 % 47-70 [facility] WBC (Bld) [#/Vol] 8.3 10*3/uL 4.4-11.0 [facility] Blood erythrocytes count (nu mber/volume)Ordered By: Renard Burgos on 05-30-2022 RBC (Bld) [#/Vol] 4.87 10*6/uL 4.6-6.2 [facility] Blood hemoglobin measurement (mass/volume)Ordered By: Renard Burgos on 05-30-2022 Hemoglobin (Bld) [Mass/Vol] 14.6 g/dL 13.0-16.5 [facility] Blood lymphocytes/100 leukoc ytesOrdered By: Renard Burgos on 05-30-2022 Lymphocytes/100 WBC (Bld) 27.9 % 19-41 [facility] Blood monocytes/100 leukocyt esOrdered By: Renard Burgos on 05-30-2022 Monocytes/100 WBC (Bld) 8.0 % 0-10 [facility] Blood platelet mean volumeOr dered By: Renard Burgos on 05-30-2022 Platelet mean volume (Bld) [Entitic vol] 10.9 fL 6.2-12.0 [facility] Determination of erythrocyte mean corpuscular volume (MCV)Ordered By: Renard Burgos on 05-30-2022 MCV (RBC) [Entitic vol] 91.6 fL 80-94 [facility] Hematocrit Auto (Bld) [Volum e fraction]Ordered By: Renard Burgos on 05-30-2022 Hematocrit (Bld) [Volume fraction] 44.6 % 40-54 [facility] - Hematology and Cell countsOrdered By: Renard Burgos on 05-30-2022 Erythrocyte distribution width (RBC) [Entitic vol] 42.4 fL 35.1-43.9 [facility] Erythrocyte distribution width (RBC) [Ratio] 12.6 % 11.6-14.6 [facility] Immature granulocytes/100 WBC (Bld) 0.600 % 0.0-0.9 [facility] Comment on above: IG% - Immature Granu locytes (promyelocytes, myelocytes and metamyelocytes) > 1% indicates that a LEFT SHIFT is Present. MCH (RBC) [Entitic mass] 30.0 pg 27.0-32.0 [facility] Nucleated RBC/100 WBC (Bld) [Ratio] 0 % 0-5 [facility] MCHC Auto (RBC) [Mass/Vol]Or dered By: Renard Bugros on 05-30-2022 MCHC (RBC) [Mass/Vol] 32.7 g/dL 32-36 [facility] [facility] Platelets bldOrdered By: Lyubov Burgos on 05-30-2022 Platelets (Bld) [#/Vol] 213 10*3/uL 150-450 [facility] Absolute lymphocyte countOrd ered By: Renard Burgos on 05-23-2022 Lymphocytes Auto (Unsp spec) [#/Vol] 2.07 10*3/uL 0.83-4.51 [facility] Basophil percentageOrdered B y: Renard Burgos on 05-23-2022 Basophils/100 WBC (Bld) 0.5 % 0-1 [facility] Eosinophils/100 WBC (Bld) 0.4 % 0-5 [facility] Neutrophils (Bld) [#/Vol] 5.7 10*3/uL 2.0-7.7 [facility] Neutrophils/100 WBC (Bld) 66.5 % 47-70 [facility] WBC (Bld) [#/Vol] 8.5 10*3/uL 4.4-11.0 [facility] Blood erythrocytes count (nu mber/volume)Ordered By: Renard Burgso on 05-23-2022 RBC (Bld) [#/Vol] 4.75 10*6/uL 4.6-6.2 [facility] Blood hemoglobin measurement (mass/volume)Ordered By: Renard Burgos on 05-23-2022 Hemoglobin (Bld) [Mass/Vol] 14.3 g/dL 13.0-16.5 [facility] Blood lymphocytes/100 leukoc ytesOrdered By: Renard Burgos on 05-23-2022 Lymphocytes/100 WBC (Bld) 24.4 % 19-41 [facility] Blood monocytes/100 leukocyt esOrdered By: Renard Burgos on 05-23-2022 Monocytes/100 WBC (Bld) 7.7 % 0-10 [facility] Blood platelet mean volumeOr dered By: Renard Burgos on 05-23-2022 Platelet mean volume (Bld) [Entitic vol] 11.1 fL 6.2-12.0 [facility] Determination of erythrocyte mean corpuscular volume (MCV)Ordered By: Renard Burgos on 05-23-2022 MCV (RBC) [Entitic vol] 90.9 fL 80-94 [facility] Hematocrit Auto (Bld) [Volum e fraction]Ordered By: Renard Burgos on 05-23-2022 Hematocrit (Bld) [Volume fraction] 43.2 % 40-54 [facility] Laboratory - Hematology and Cell countsOrdered By: Renard Burgos on 05-23-2022 Erythrocyte distribution width (RBC) [Entitic vol] 41.7 fL 35.1-43.9 [facility] Erythrocyte distribution width (RBC) [Ratio] 12.5 % 11.6-14.6 [facility] Immature granulocytes/100 WBC (Bld) 0.500 % 0.0-0.9 [facility] Comment on above: IG% - Immature Granu locytes (promyelocytes, myelocytes and metamyelocytes) > 1% indicates that a LEFT SHIFT is Present. MCH (RBC) [Entitic mass] 30.1 pg 27.0-32.0 [facility] Nucleated RBC/100 WBC (Bld) [Ratio] 0 % 0-5 [facility] MCHC Auto (RBC) [Mass/Vol]Or dered By: Renard Burgos on 05-23-2022 MCHC (RBC) [Mass/Vol] 33.1 g/dL 32-36 [facility] Platelets bldOrdered By: Lyubov Burgos on 05-23-2022 Platelets (Bld) [#/Vol] 213 10*3/uL 150-450 [facility] No Panel Informationon 05-20 Dejah Hazel DO 05/20/2022 7:32 PM Feeding Tube Replacement Performed by: Dejah Hazel DO Authorized by: Abelardo Rios DO Consent: Consent obtained: Verbal Consent given by: Patient [place] protocol: Patient identity confirmed: Verbally with patient [...] Procedure completion: Tolerated well, no immediate complications [facility] XR Abdomen Single viewon G-tube position is within the stomach. No evidence of contrast extravasation. Report Dictated on Electronically Signed By: Jason Tran Electronically Signed Date/Time: 05/20/2022 7:38 PM [facility] [employer] Patient Name: KATHYA HOOPER Exam Date/Time: 05/20/2022 19:18 Procedure: XR ABDOMEN 1 VIEW Ordering Provider: RIOS TYLER Reason For Exam: SUPINE ABDOMEN (KUB) CLINICAL INDICATION: confirm placement of G tube A supine plain film of the abdomen was obtained. Repeat abdominal radiographs following hand injection of enteric contrast via the patient's enteric tube. (Gastrografin 30 mL). COMPARISON: None FINDINGS: On the geodetic survey director image, no dilated bowel loops are identified. Feeding tube overlies the epigastric region of the abdomen. On the postcontrast images, there is a small amount of enteric contrast in the stomach and contrast is present throughout the proximal duodenum. No extravasated contrast is evident. [facility] Jason Tran M D - [...] 30 mL). COMPARISON: None FINDINGS: On the geodetic survey director image, no dilated bowel loops are identified. [...] Electronically Signed Date/Time: 05/20/2022 7:[address] [facility] XR Abdomen Single viewOrdere d By: Jason Tran on 05-20-2022 [employer] Work Phone: Absolute lymphocyte countOrd ered By: Renard Burgos on 05-16-2022 Lymphocytes Auto (Unsp spec) [#/Vol] 2.06 10*3/uL 0.83-4.51 [facility] Basophil percentageOrdered B y: Renard Burgos on 05-16-2022 Basophils/100 WBC (Bld) 0.6 % 0-1 [facility] Eosinophils/100 WBC (Bld) 0.6 % 0-5 [facility] Neutrophils (Bld) [#/Vol] 4.4 10*3/uL 2.0-7.7 [facility] Neutrophils/100 WBC (Bld) 61.2 % 47-70 [facility] WBC (Bld) [#/Vol] 7.1 10*3/uL 4.4-11.0 [facility] Blood erythrocytes count (nu mber/volume)Ordered By: Renard Burgos on 05-16-2022 RBC (Bld) [#/Vol] 4.58 10*6/uL 4.6-6.2 [facility] Blood hemoglobin measurement (mass/volume)Ordered By: Renard Burgos on 05-16-2022 Hemoglobin (Bld) [Mass/Vol] 13.9 g/dL 13.0-16.5 [facility] Blood lymphocytes/100 leukoc ytesOrdered By: Renard Burgos on 05-16-2022 Lymphocytes/100 WBC (Bld) 29.0 % 19-41 [facility] Blood monocytes/100 leukocyt esOrdered By: Renard Burgos on 05-16-2022 Monocytes/100 WBC (Bld) 8.2 % 0-10 [facility] Blood platelet mean volumeOr dered By: Renard Burgos on 05-16-2022 Platelet mean volume (Bld) [Entitic vol] 11.1 fL 6.2-12.0 [facility] Determination of erythrocyte mean corpuscular volume (MCV)Ordered By: Renard Burgos on 05-16-2022 MCV (RBC) [Entitic vol] 91.5 fL 80-94 [facility] Hematocrit Auto (Bld) [Volum e fraction]Ordered By: Renard Burgos on 05-16-2022 Hematocrit (Bld) [Volume fraction] 41.9 % 40-54 [facility] Laboratory - Hematology and Cell countsOrdered By: Renard Burgos on 05-16-2022 Erythrocyte distribution width (RBC) [Entitic vol] 41.3 fL 35.1-43.9 [facility] Erythrocyte distribution width (RBC) [Ratio] 12.5 % 11.6-14.6 [facility] Immature granulocytes/100 WBC (Bld) 0.400 % 0.0-0.9 [facility] Comment on above: IG% - Immature Granu locytes (promyelocytes, myelocytes and metamyelocytes) > 1% indicates that a LEFT SHIFT is Present. MCH (RBC) [Entitic mass] 30.3 pg 27.0-32.0 [facility] Nucleated RBC/100 WBC (Bld) [Ratio] 0 % 0-5 [facility] MCHC Auto (RBC) [Mass/Vol]Or dered By: Renard Burgos on 05-16-2022 MCHC (RBC) [Mass/Vol] 33.2 g/dL 32-36 [facility] Platelets bldOrdered By: Lyubov Burgos on 05-16-2022 Platelets (Bld) [#/Vol] 205 10*3/uL 150-450 [facility] Absolute lymphocyte countOrd ered By: Renard Burgos on 05-09-2022 Lymphocytes Auto (Unsp spec) [#/Vol] 1.92 10*3/uL 0.83-4.51 [facility] Basophil percentageOrdered B y: Renard Burgos on 05-09-2022 Basophils/100 WBC (Bld) 0.7 % 0-1 [facility] Eosinophils/100 WBC (Bld) 0.7 % 0-5 [facility] Neutrophils (Bld) [#/Vol] 4.3 10*3/uL 2.0-7.7 [facility] Neutrophils/100 WBC (Bld) 60.9 % 47-70 [facility] WBC (Bld) [#/Vol] 7.1 10*3/uL 4.4-11.0 [facility] Blood erythrocytes count (nu mber/volume)Ordered By: Renard Burgos on 05-09-2022 RBC (Bld) [#/Vol] 4.67 10*6/uL 4.6-6.2 [facility] Blood hemoglobin measurement (mass/volume)Ordered By: Renard Burgos on 05-09-2022 Hemoglobin (Bld) [Mass/Vol] 14.1 g/dL 13.0-16.5 [facility] Blood lymphocytes/100 leukoc ytesOrdered By: Renard Burgos on 05-09-2022 Lymphocytes/100 WBC (Bld) 27.2 % 19-41 [facility] Blood monocytes/100 leukocyt esOrdered By: Renard Burgos on 05-09-2022 Monocytes/100 WBC (Bld) 10.2 % 0-10 [facility] Blood platelet mean volumeOr dered By: Renard Burgos on 05-09-2022 Platelet mean volume (Bld) [Entitic vol] 11.5 fL 6.2-12.0 [facility] Determination of erythrocyte mean corpuscular volume (MCV)Ordered By: Renard Burgos on 05-09-2022 MCV (RBC) [Entitic vol] 91.0 fL 80-94 [facility] Hematocrit Auto (Bld) [Volum e fraction]Ordered By: Renard Burgos on 05-09-2022 Hematocrit (Bld) [Volume fraction] 42.5 % 40-54 [facility] Laboratory - Hematology and Cell countsOrdered By: Renard Burgos on 05-09-2022 Erythrocyte distribution width (RBC) [Entitic vol] 41.4 fL 35.1-43.9 [facility] Erythrocyte distribution width (RBC) [Ratio] 12.7 % 11.6-14.6 [facility] Immature granulocytes/100 WBC (Bld) 0.300 % 0.0-0.9 [facility] Comment on above: IG% - Immature Granu locytes (promyelocytes, myelocytes and metamyelocytes) > 1% indicates that a LEFT SHIFT is Present. MCH (RBC) [Entitic mass] 30.2 pg 27.0-32.0 [facility] Nucleated RBC/100 WBC (Bld) [Ratio] 0.4 % 0-5 [facility] MCHC Auto (RBC) [Mass/Vol]Or dered By: Renard Burgos on 05-09-2022 MCHC (RBC) [Mass/Vol] 33.2 g/dL 32-36 [facility] Platelets bldOrdered By: Lyubov Burgos on 05-09-2022 Platelets (Bld) [#/Vol] 202 10*3/uL 150-450 [facility] Absolute lymphocyte countOrd ered By: Renard Burgos on 05-03-2022 Lymphocytes Auto (Unsp spec) [#/Vol] 1.86 10*3/uL 0.83-4.51 [facility] Basophil percentageOrdered B y: Renard Burgos on 05-03-2022 Basophils/100 WBC (Bld) 0.3 % 0-1 [facility] Eosinophils/100 WBC (Bld) 0.3 % 0-5 [facility] Neutrophils (Bld) [#/Vol] 6.4 10*3/uL 2.0-7.7 [facility] Neutrophils/100 WBC (Bld) 71.9 % 47-70 [facility] WBC (Bld) [#/Vol] 8.9 10*3/uL 4.4-11.0 [facility] Blood erythrocytes count (nu mber/volume)Ordered By: Renard Burgos on 05-03-2022 RBC (Bld) [#/Vol] 4.65 10*6/uL 4.6-6.2 [facility] Blood hemoglobin measurement (mass/volume)Ordered By: Renard Burgos on 05-03-2022 Hemoglobin (Bld) [Mass/Vol] 14.5 g/dL 13.0-16.5 [facility] Blood lymphocytes/100 leukoc ytesOrdered By: Renard Burgos on 05-03-2022 Lymphocytes/100 WBC (Bld) 20.9 % 19-41 [facility] Blood monocytes/100 leukocyt esOrdered By: Renard Burgos on 05-03-2022 Monocytes/100 WBC (Bld) 6.2 % 0-10 [facility] Blood platelet mean volumeOr dered By: Renard Burgos on 05-03-2022 Platelet mean volume (Bld) [Entitic vol] 11.1 fL 6.2-12.0 [facility] Determination of erythrocyte mean corpuscular volume (MCV)Ordered By: Renard Burgos on 05-03-2022 MCV (RBC) [Entitic vol] 90.1 fL 80-94 [facility] Hematocrit Auto (Bld) [Volum e fraction]Ordered By: Renard Burgos on 05-03-2022 Hematocrit (Bld) [Volume fraction] 41.9 % 40-54 [facility] Laboratory - Hematology and Cell countsOrdered By: Renard Burgos on 05-03-2022 Erythrocyte distribution width (RBC) [Entitic vol] 39.7 fL 35.1-43.9 [facility] Erythrocyte distribution width (RBC) [Ratio] 12.2 % 11.6-14.6 [facility] Immature granulocytes/100 WBC (Bld) 0.400 % 0.0-0.9 [facility] Comment on above: IG% - Immature Granu locytes (promyelocytes, myelocytes and metamyelocytes) > 1% indicates that a LEFT SHIFT is Present. MCH (RBC) [Entitic mass] 31.2 pg 27.0-32.0 [facility] Nucleated RBC/100 WBC (Bld) [Ratio] 0 % 0-5 [facility] MCHC Auto (RBC) [Mass/Vol]Or dered By: Renard Burgos on 05-03-2022 MCHC (RBC) [Mass/Vol] 34.6 g/dL 32-36 [facility] Platelets bldOrdered By: Lyubov Burgos on 05-03-2022 Platelets (Bld) [#/Vol] 203 10*3/uL 150-450 [facility] Absolute lymphocyte countOrd ered By: Renard Burgos on 04-26-2022 Lymphocytes Auto (Unsp spec) [#/Vol] 2.79 10*3/uL 0.83-4.51 [facility] Basophil percentageOrdered B y: Renard Burgos on 04-26-2022 Basophils/100 WBC (Bld) 0.4 % 0-1 [facility] Eosinophils/100 WBC (Bld) 0.4 % 0-5 [facility] Neutrophils (Bld) [#/Vol] 5.9 10*3/uL 2.0-7.7 [facility] Neutrophils/100 WBC (Bld) 60.9 % 47-70 [facility] WBC (Bld) [#/Vol] 9.7 10*3/uL 4.4-11.0 [facility] Blood erythrocytes count (nu mber/volume)Ordered By: Renard Burgos on 04-26-2022 RBC (Bld) [#/Vol] 4.92 10*6/uL 4.6-6.2 [facility] Blood hemoglobin measurement (mass/volume)Ordered By: Renard Burgos on 04-26-2022 Hemoglobin (Bld) [Mass/Vol] 15.2 g/dL 13.0-16.5 [facility] Blood lymphocytes/100 leukoc ytesOrdered By: Renard Burgos on 04-26-2022 Lymphocytes/100 WBC (Bld) 28.9 % 19-41 [facility] Blood monocytes/100 leukocyt esOrdered By: Renard Burgos on 04-26-2022 Monocytes/100 WBC (Bld) 9.0 % 0-10 [facility] Blood platelet mean volumeOr dered By: Renard Burgos on 04-26-2022 Platelet mean volume (Bld) [Entitic vol] 11.0 fL 6.2-12.0 [facility] Determination of erythrocyte mean corpuscular volume (MCV)Ordered By: Renard Burgos on 04-26-2022 MCV (RBC) [Entitic vol] 92.3 fL 80-94 [facility] Hematocrit Auto (Bld) [Volum e fraction]Ordered By: Renard Burgos on 04-26-2022 Hematocrit (Bld) [Volume fraction] 45.4 % 40-54 [facility] - Hematology and Cell countsOrdered By: Renard Burgos on 04-26-2022 Erythrocyte distribution width (RBC) [Entitic vol] 42.1 fL 35.1-43.9 [facility] Erythrocyte distribution width (RBC) [Ratio] 12.5 % 11.6-14.6 [facility] Immature granulocytes/100 WBC (Bld) 0.400 % 0.0-0.9 [facility] Comment on above: IG% - Immature Granu locytes (promyelocytes, myelocytes and metamyelocytes) > 1% indicates that a LEFT SHIFT is Present. MCH (RBC) [Entitic mass] 30.9 pg 27.0-32.0 [facility] Nucleated RBC/100 WBC (Bld) [Ratio] 0 % 0-5 [facility] MCHC Auto (RBC) [Mass/Vol]Or dered By: Renard Burgos on 04-26-2022 MCHC (RBC) [Mass/Vol] 33.5 g/dL 32-36 [facility] Platelets bldOrdered By: Pet lizy Loretta on 04-26-2022 Platelets (Bld) [#/Vol] 178 10*3/uL 150-450 [facility] Absolute lymphocyte countOrd ered By: Renard Burgos on 04-18-2022 Lymphocytes Auto (Unsp spec) [#/Vol] 2.03 10*3/uL 0.83-4.51 [facility] Basophil percentageOrdered B y: Renard Burgos on 04-18-2022 Basophils/100 WBC (Bld) 0.6 % 0-1 [facility] Eosinophils/100 WBC (Bld) 0.6 % 0-5 [facility] Neutrophils (Bld) [#/Vol] 4.5 10*3/uL 2.0-7.7 [facility] Neutrophils/100 WBC (Bld) 62.0 % 47-70 [facility] WBC (Bld) [#/Vol] 7.2 10*3/uL 4.4-11.0 [facility] Blood erythrocytes count (nu mber/volume)Ordered By: Renard Burgos on 04-18-2022 RBC (Bld) [#/Vol] 4.67 10*6/uL 4.6-6.2 [facility] Blood hemoglobin measurement (mass/volume)Ordered By: Renard Burgos on 04-18-2022 Hemoglobin (Bld) [Mass/Vol] 14.5 g/dL 13.0-16.5 [facility] Blood lymphocytes/100 leukoc ytesOrdered By: Renard Burgos on 04-18-2022 Lymphocytes/100 WBC (Bld) 28.2 % 19-41 [facility] Blood monocytes/100 leukocyt esOrdered By: Renard Burgos on 04-18-2022 Monocytes/100 WBC (Bld) 8.2 % 0-10 [facility] Blood platelet mean volumeOr dered By: Renard Burgos on 04-18-2022 Platelet mean volume (Bld) [Entitic vol] 11.2 fL 6.2-12.0 [facility] Determination of erythrocyte mean corpuscular volume (MCV)Ordered By: Renard Burgos on 04-18-2022 MCV (RBC) [Entitic vol] 90.8 fL 80-94 [facility] Hematocrit Auto (Bld) [Volum e fraction]Ordered By: Renard Burgos on 04-18-2022 Hematocrit (Bld) [Volume fraction] 42.4 % 40-54 [facility] - Hematology and Cell countsOrdered By: Renard Burgos on 04-18-2022 Erythrocyte distribution width (RBC) [Entitic vol] 41.1 fL 35.1-43.9 [facility] Erythrocyte distribution width (RBC) [Ratio] 12.5 % 11.6-14.6 [facility] Immature granulocytes/100 WBC (Bld) 0.400 % 0.0-0.9 [facility] Comment on above: IG% - Immature Granu locytes (promyelocytes, myelocytes and metamyelocytes) > 1% indicates that a LEFT SHIFT is Present. MCH (RBC) [Entitic mass] 31.0 pg 27.0-32.0 [facility] Nucleated RBC/100 WBC (Bld) [Ratio] 0 % 0-5 [facility] MCHC Auto (RBC) [Mass/Vol]Or dered By: Renard Burgos on 04-18-2022 MCHC (RBC) [Mass/Vol] 34.2 g/dL 32-36 [facility] Platelets bldOrdered By: Lyubov Burgos on 04-18-2022 Platelets (Bld) [#/Vol] 196 10*3/uL 150-450 [facility] Basophil percentageOrdered B y: Renard Burgos on 04-14-2022 Bilirubin [Mass/Vol] 0.40 mg/dL 0.20-1.00 [facility] Comment on above: For patients on eltr ombopag therapy, use of Dimension [place] TBIL is not recommended. Protein [Mass/Vol] 6.3 g/dL 6.4-8.2 [facility] Direct bilirubinOrdered By: Renard Burgos on 04-14-2022 Bilirubin.direct [Mass/Vol] 0.12 mg/dL 0.00-0.30 [facility] Laboratory - Chemistry and C hemistry - challengeOrdered By: Renard Burgos on 04-14-2022 ALP [Catalytic activity/Vol] 117 U/L 45-117 [facility] ALT [Catalytic activity/Vol] 26 U/L 16-61 [facility] Globulin (S) [Mass/Vol] 3.2 g/dL 2.2-4.2 [facility] Serum or plasma albumin gordy urement (mass/volume)Ordered By: Renard Burgos on 04-14-2022 Albumin [Mass/Vol] 3.1 g/dL 3.2-5.0 [facility] Thin prep Papanicolaou smear with manual screeningOrdered By: Renard Burgos on 04-14-2022 Thin prep Papanicolaou smear with manual screening 12 U/L 15-37 [facility] Absolute lymphocyte countOrd ered By: Renard Burgos on 04-11-2022 Lymphocytes Auto (Unsp spec) [#/Vol] 2.16 10*3/uL 0.83-4.51 [facility] Basophil percentageOrdered B y: Renard Burgos on 04-11-2022 Basophils/100 WBC (Bld) 0.4 % 0-1 [facility] Eosinophils/100 WBC (Bld) 0.4 % 0-5 [facility] Neutrophils (Bld) [#/Vol] 4.2 10*3/uL 2.0-7.7 [facility] Neutrophils/100 WBC (Bld) 61.1 % 47-70 [facility] WBC (Bld) [#/Vol] 6.9 10*3/uL 4.4-11.0 [facility] Blood erythrocytes count (nu mber/volume)Ordered By: Renard Burgos on 04-11-2022 RBC (Bld) [#/Vol] 4.58 10*6/uL 4.6-6.2 [facility] Blood hemoglobin measurement (mass/volume)Ordered By: Renard Burgos on 04-11-2022 Hemoglobin (Bld) [Mass/Vol] 13.9 g/dL 13.0-16.5 [facility] Blood lymphocytes/100 leukoc ytesOrdered By: Renard Burgos on 04-11-2022 Lymphocytes/100 WBC (Bld) 31.2 % 19-41 [facility] Blood monocytes/100 leukocyt esOrdered By: Renard Burgos on 04-11-2022 Monocytes/100 WBC (Bld) 6.5 % 0-10 [facility] Blood platelet mean volumeOr dered By: Renard Burgos on 04-11-2022 Platelet mean volume (Bld) [Entitic vol] 11.4 fL 6.2-12.0 [facility] Determination of erythrocyte mean corpuscular volume (MCV)Ordered By: Renard Burgos on 04-11-2022 MCV (RBC) [Entitic vol] 91.9 fL 80-94 [facility] Hematocrit Auto (Bld) [Volum e fraction]Ordered By: Renard Burgos on 04-11-2022 Hematocrit (Bld) [Volume fraction] 42.1 % 40-54 [facility] - Hematology and Cell countsOrdered By: Renard Burgos on 04-11-2022 Erythrocyte distribution width (RBC) [Entitic vol] 41.5 fL 35.1-43.9 [facility] Erythrocyte distribution width (RBC) [Ratio] 12.3 % 11.6-14.6 [facility] Immature granulocytes/100 WBC (Bld) 0.400 % 0.0-0.9 [facility] Comment on above: IG% - Immature Granu locytes (promyelocytes, myelocytes and metamyelocytes) > 1% indicates that a LEFT SHIFT is Present. MCH (RBC) [Entitic mass] 30.3 pg 27.0-32.0 [facility] Nucleated RBC/100 WBC (Bld) [Ratio] 0 % 0-5 [facility] MCHC Auto (RBC) [Mass/Vol]Or dered By: Renard Burgos on 04-11-2022 MCHC (RBC) [Mass/Vol] 33.0 g/dL 32-36 [facility] Platelets bldOrdered By: Lyubov Burgos on 04-11-2022 Platelets (Bld) [#/Vol] 191 10*3/uL 150-450 [facility] Absolute lymphocyte countOrd ered By: Renard Burgos on 04-04-2022 Lymphocytes Auto (Unsp spec) [#/Vol] 1.99 10*3/uL 0.83-4.51 [facility] Basophil percentageOrdered B y: Renard Burgos on 04-04-2022 Basophils/100 WBC (Bld) 0.4 % 0-1 [facility] Cholesterol [Mass/Vol] 158 mg/dL <200 [facility] Comment on above: <200 mg/dL Desirable 200-240 mg/dL Borderline >240 mg/dL High Risk Eosinophils/100 WBC (Bld) 0.4 % 0-5 [facility] Neutrophils (Bld) [#/Vol] 4.9 10*3/uL 2.0-7.7 [facility] Neutrophils/100 WBC (Bld) 64.2 % 47-70 [facility] Triglyceride [Mass/Vol] 259 mg/dL <199 [facility] Comment on above: The drugs N-Acetylcy steine and Metamizole may falsely depress this assay.Serum Triglycerides Reference Interval Normal <150 mg/dL Borderline high 150 - 199 mg/dL High 200 - 499 mg/dL Very High > or = 500 mg/dL WBC (Bld) [#/Vol] 7.7 10*3/uL 4.4-11.0 [facility] Blood erythrocytes count (nu mber/volume)Ordered By: Renard Burgos on 04-04-2022 RBC (Bld) [#/Vol] 4.63 10*6/uL 4.6-6.2 [facility] Blood hemoglobin measurement (mass/volume)Ordered By: Renard Burgos on 04-04-2022 Hemoglobin (Bld) [Mass/Vol] 14.1 g/dL 13.0-16.5 [facility] Blood lymphocytes/100 leukoc ytesOrdered By: Renard Burgos on 04-04-2022 Lymphocytes/100 WBC (Bld) 25.9 % 19-41 [facility] Blood monocytes/100 leukocyt esOrdered By: Renard Burgos on 04-04-2022 Monocytes/100 WBC (Bld) 8.6 % 0-10 [facility] Blood platelet mean volumeOr dered By: Renard Burgos on 04-04-2022 Platelet mean volume (Bld) [Entitic vol] 11.3 fL 6.2-12.0 [facility] Determination of erythrocyte mean corpuscular volume (MCV)Ordered By: Renard Burgos on 04-04-2022 MCV (RBC) [Entitic vol] 90.7 fL 80-94 [facility] Hematocrit Auto (Bld) [Volum e fraction]Ordered By: Renard Burgos on 04-04-2022 Hematocrit (Bld) [Volume fraction] 42.0 % 40-54 [facility] - Hematology and Cell countsOrdered By: Renard Burgos on 04-04-2022 Erythrocyte distribution width (RBC) [Entitic vol] 41.3 fL 35.1-43.9 [facility] Erythrocyte distribution width (RBC) [Ratio] 12.4 % 11.6-14.6 [facility] Immature granulocytes/100 WBC (Bld) 0.500 % 0.0-0.9 [facility] Comment on above: IG% - Immature Granu locytes (promyelocytes, myelocytes and metamyelocytes) > 1% indicates that a LEFT SHIFT is Present. MCH (RBC) [Entitic mass] 30.5 pg 27.0-32.0 [facility] Nucleated RBC/100 WBC (Bld) [Ratio] 0 % 0-5 [facility] MCHC Auto (RBC) [Mass/Vol]Or dered By: Renard Burgos on 04-04-2022 MCHC (RBC) [Mass/Vol] 33.6 g/dL 32-36 [facility] Platelets bldOrdered By: Lyubov Burgos on 04-04-2022 Platelets (Bld) [#/Vol] 174 10*3/uL 150-450 [facility] Serum or plasma cholesterol in HDL measurement (mass/volume)Ordered By: Renard Burgos on 04-04-2022 Cholesterol in HDL [Mass/Vol] 26 mg/dL >40 [facility] Comment on above: The drugs N-Acetylcy steine and Metamizole may falsely depress this assay. Reference Range HDL <40 mg/dL Low HDL Cholesterol HDL >or= 60 mg/dL High HDL Cholesterol Serum or plasma cholesterol in VLDL measurement (mass/volume)Ordered By: Renard Burgos on 04-04-2022 Cholesterol in VLDL [Mass/Vol] 52 mg/dL 5-40 [facility] Serum or plasma low density lipoprotein (LDL) cholesterol measurement (mass/volume)Ordered By: Renard Burgos on 04-04-2022 Cholesterol in LDL [Mass/Vol] 80 mg/dL 0-130 [facility] Absolute lymphocyte countOrd ered By: Renard Burgos on 03-28-2022 Lymphocytes Auto (Unsp spec) [#/Vol] 2.25 10*3/uL 0.83-4.51 [facility] Basophil percentageOrdered B y: Renard Burgos on 03-28-2022 Basophils/100 WBC (Bld) 0.6 % 0-1 [facility] Eosinophils/100 WBC (Bld) 0.5 % 0-5 [facility] Neutrophils (Bld) [#/Vol] 4.8 10*3/uL 2.0-7.7 [facility] Neutrophils/100 WBC (Bld) 60.5 % 47-70 [facility] WBC (Bld) [#/Vol] 8.0 10*3/uL 4.4-11.0 [facility] Blood erythrocytes count (nu mber/volume)Ordered By: Renard Burgos on 03-28-2022 RBC (Bld) [#/Vol] 4.69 10*6/uL 4.6-6.2 [facility] Blood hemoglobin measurement (mass/volume)Ordered By: Renard Burgos on 03-28-2022 Hemoglobin (Bld) [Mass/Vol] 14.4 g/dL 13.0-16.5 [facility] Blood lymphocytes/100 leukoc ytesOrdered By: Renard Burgos on 03-28-2022 Lymphocytes/100 WBC (Bld) 28.1 % 19-41 [facility] Blood monocytes/100 leukocyt esOrdered By: Renard Burgos on 03-28-2022 Monocytes/100 WBC (Bld) 9.8 % 0-10 [facility] Blood platelet mean volumeOr dered By: Renard Burgos on 03-28-2022 Platelet mean volume (Bld) [Entitic vol] 10.8 fL 6.2-12.0 [facility] Determination of erythrocyte mean corpuscular volume (MCV)Ordered By: Renard Burgos on 03-28-2022 MCV (RBC) [Entitic vol] 92.1 fL 80-94 [facility] Hematocrit Auto (Bld) [Volum e fraction]Ordered By: Renard Burgos on 03-28-2022 Hematocrit (Bld) [Volume fraction] 43.2 % 40-54 [facility] Laboratory - Hematology and Cell countsOrdered By: Renard Burgos on 03-28-2022 Erythrocyte distribution width (RBC) [Entitic vol] 42.0 fL 35.1-43.9 [facility] Erythrocyte distribution width (RBC) [Ratio] 12.5 % 11.6-14.6 [facility] Immature granulocytes/100 WBC (Bld) 0.500 % 0.0-0.9 [facility] Comment on above: IG% - Immature Granu locytes (promyelocytes, myelocytes and metamyelocytes) > 1% indicates that a LEFT SHIFT is Present. MCH (RBC) [Entitic mass] 30.7 pg 27.0-32.0 [facility] Nucleated RBC/100 WBC (Bld) [Ratio] 0 % 0-5 [facility] MCHC Auto (RBC) [Mass/Vol]Or dered By: Renard Burgos on 03-28-2022 MCHC (RBC) [Mass/Vol] 33.3 g/dL 32-36 [facility] Platelets bldOrdered By: Lyubov Burgos on 03-28-2022 Platelets (Bld) [#/Vol] 207 10*3/uL 150-450 [facility] Absolute lymphocyte countOrd ered By: Renard Burgos on 03-21-2022 Lymphocytes Auto (Unsp spec) [#/Vol] 1.98 10*3/uL 0.83-4.51 [facility] Basophil percentageOrdered B y: Renard Burgos on 03-21-2022 Basophils/100 WBC (Bld) 0.5 % 0-1 [facility] Eosinophils/100 WBC (Bld) 0.5 % 0-5 [facility] Neutrophils (Bld) [#/Vol] 4.9 10*3/uL 2.0-7.7 [facility] Neutrophils/100 WBC (Bld) 63.6 % 47-70 [facility] WBC (Bld) [#/Vol] 7.7 10*3/uL 4.4-11.0 [facility] Blood erythrocytes count (nu mber/volume)Ordered By: Renard Burgos on 03-21-2022 RBC (Bld) [#/Vol] 4.82 10*6/uL 4.6-6.2 [facility] Blood hemoglobin measurement (mass/volume)Ordered By: Renard Burgos on 03-21-2022 Hemoglobin (Bld) [Mass/Vol] 14.9 g/dL 13.0-16.5 [facility] Blood lymphocytes/100 leukoc ytesOrdered By: Renard Burgos on 03-21-2022 Lymphocytes/100 WBC (Bld) 25.7 % 19-41 [facility] Blood monocytes/100 leukocyt esOrdered By: Renard Burgos on 03-21-2022 Monocytes/100 WBC (Bld) 9.3 % 0-10 [facility] Blood platelet mean volumeOr dered By: Renard Burgos on 03-21-2022 Platelet mean volume (Bld) [Entitic vol] 10.8 fL 6.2-12.0 [facility] Determination of erythrocyte mean corpuscular volume (MCV)Ordered By: Renard Burgos on 03-21-2022 MCV (RBC) [Entitic vol] 90.7 fL 80-94 [facility] Hematocrit Auto (Bld) [Volum e fraction]Ordered By: Renard Burgos on 03-21-2022 Hematocrit (Bld) [Volume fraction] 43.7 % 40-54 [facility] - Hematology and Cell countsOrdered By: Renard Burgos on 03-21-2022 Erythrocyte distribution width (RBC) [Entitic vol] 40.8 fL 35.1-43.9 [facility] Erythrocyte distribution width (RBC) [Ratio] 12.4 % 11.6-14.6 [facility] Immature granulocytes/100 WBC (Bld) 0.400 % 0.0-0.9 [facility] Comment on above: IG% - Immature Granu locytes (promyelocytes, myelocytes and metamyelocytes) > 1% indicates that a LEFT SHIFT is Present. MCH (RBC) [Entitic mass] 30.9 pg 27.0-32.0 [facility] Nucleated RBC/100 WBC (Bld) [Ratio] 0 % 0-5 [facility] MCHC Auto (RBC) [Mass/Vol]Or dered By: Renard Burgos on 03-21-2022 MCHC (RBC) [Mass/Vol] 34.1 g/dL 32-36 [facility] Platelets bldOrdered By: Pet lizy Loretta on 03-21-2022 Platelets (Bld) [#/Vol] 186 10*3/uL 150-450 [facility] Absolute lymphocyte countOrd ered By: Renard Burgos on 03-14-2022 Lymphocytes Auto (Unsp spec) [#/Vol] 2.18 10*3/uL 0.83-4.51 [facility] Basophil percentageOrdered B y: Renard Burgos on 03-14-2022 Basophils/100 WBC (Bld) 0.4 % 0-1 [facility] Eosinophils/100 WBC (Bld) 0.6 % 0-5 [facility] Neutrophils (Bld) [#/Vol] 4.3 10*3/uL 2.0-7.7 [facility] Neutrophils/100 WBC (Bld) 58.8 % 47-70 [facility] WBC (Bld) [#/Vol] 7.3 10*3/uL 4.4-11.0 [facility] Blood erythrocytes count (nu mber/volume)Ordered By: Renard Burgos on 03-14-2022 RBC (Bld) [#/Vol] 4.80 10*6/uL 4.6-6.2 [facility] Blood hemoglobin measurement (mass/volume)Ordered By: Renard Burgos on 03-14-2022 Hemoglobin (Bld) [Mass/Vol] 14.5 g/dL 13.0-16.5 [facility] Blood lymphocytes/100 leukoc ytesOrdered By: Renard Burgos on 03-14-2022 Lymphocytes/100 WBC (Bld) 30.1 % 19-41 [facility] Blood monocytes/100 leukocyt esOrdered By: Renard Burgos on 03-14-2022 Monocytes/100 WBC (Bld) 9.5 % 0-10 [facility] Blood platelet mean volumeOr dered By: Renard Burgos on 03-14-2022 Platelet mean volume (Bld) [Entitic vol] 11.0 fL 6.2-12.0 [facility] Determination of erythrocyte mean corpuscular volume (MCV)Ordered By: Renard Burgos on 03-14-2022 MCV (RBC) [Entitic vol] 91.5 fL 80-94 [facility] Hematocrit Auto (Bld) [Volum e fraction]Ordered By: Renard Burgos on 03-14-2022 Hematocrit (Bld) [Volume fraction] 43.9 % 40-54 [facility] - Hematology and Cell countsOrdered By: Renard Burgos on 03-14-2022 Erythrocyte distribution width (RBC) [Entitic vol] 41.1 fL 35.1-43.9 [facility] Erythrocyte distribution width (RBC) [Ratio] 12.4 % 11.6-14.6 [facility] Immature granulocytes/100 WBC (Bld) 0.600 % 0.0-0.9 [facility] Comment on above: IG% - Immature Granu locytes (promyelocytes, myelocytes and metamyelocytes) > 1% indicates that a LEFT SHIFT is Present. MCH (RBC) [Entitic mass] 30.2 pg 27.0-32.0 [facility] Nucleated RBC/100 WBC (Bld) [Ratio] 0 % 0-5 [facility] MCHC Auto (RBC) [Mass/Vol]Or dered By: Renard Burgos on 03-14-2022 MCHC (RBC) [Mass/Vol] 33.0 g/dL 32-36 [facility] Platelets bldOrdered By: Lyubov Burgos on 03-14-2022 Platelets (Bld) [#/Vol] 201 10*3/uL 150-450 [facility] Absolute lymphocyte countOrd ered By: Renard Burgos on 2022 Lymphocytes Auto (Unsp spec) [#/Vol] 1.97 10*3/uL 0.83-4.51 [facility] Basophil percentageOrdered B y: Renard Burgos on 2022 Basophils/100 WBC (Bld) 0.6 % 0-1 [facility] Eosinophils/100 WBC (Bld) 0.4 % 0-5 [facility] Neutrophils (Bld) [#/Vol] 4.3 10*3/uL 2.0-7.7 [facility] Neutrophils/100 WBC (Bld) 61.3 % 47-70 [facility] WBC (Bld) [#/Vol] 7.0 10*3/uL 4.4-11.0 [facility] Blood erythrocytes count (nu mber/volume)Ordered By: Renard Burgos on 2022 RBC (Bld) [#/Vol] 4.78 10*6/uL 4.6-6.2 [facility] Blood hemoglobin measurement (mass/volume)Ordered By: Renard Burgos on 2022 Hemoglobin (Bld) [Mass/Vol] 14.4 g/dL 13.0-16.5 [facility] Blood lymphocytes/100 leukoc ytesOrdered By: Renard Burgos on 2022 Lymphocytes/100 WBC (Bld) 28.3 % 19-41 [facility] Blood monocytes/100 leukocyt esOrdered By: Renard Burgos on 2022 Monocytes/100 WBC (Bld) 9.1 % 0-10 [facility] Blood platelet mean volumeOr dered By: Renard Burgos on 2022 Platelet mean volume (Bld) [Entitic vol] 11.1 fL 6.2-12.0 [facility] Determination of erythrocyte mean corpuscular volume (MCV)Ordered By: Renard Burgos on 2022 MCV (RBC) [Entitic vol] 91.2 fL 80-94 [facility] Hematocrit Auto (Bld) [Volum e fraction]Ordered By: Renard Burgos on 2022 Hematocrit (Bld) [Volume fraction] 43.6 % 40-54 [facility] - Hematology and Cell countsOrdered By: Renard Burgos on 2022 Erythrocyte distribution width (RBC) [Entitic vol] 42.0 fL 35.1-43.9 [facility] Erythrocyte distribution width (RBC) [Ratio] 12.6 % 11.6-14.6 [facility] Immature granulocytes/100 WBC (Bld) 0.300 % 0.0-0.9 [facility] Comment on above: IG% - Immature Granu locytes (promyelocytes, myelocytes and metamyelocytes) > 1% indicates that a LEFT SHIFT is Present. MCH (RBC) [Entitic mass] 30.1 pg 27.0-32.0 [facility] Nucleated RBC/100 WBC (Bld) [Ratio] 0 % 0-5 [facility] MCHC Auto (RBC) [Mass/Vol]Or dered By: Renard Burgos on 2022 MCHC (RBC) [Mass/Vol] 33.0 g/dL 32-36 [facility] Platelets bldOrdered By: Lyubov Burgos on 2022 Platelets (Bld) [#/Vol] 210 10*3/uL 150-450 [facility] Absolute lymphocyte countOrd ered By: Renard Burgos on 02-28-2022 Lymphocytes Auto (Unsp spec) [#/Vol] 1.85 10*3/uL 0.83-4.51 [facility] Basophil percentageOrdered B y: Renard Burgos on 02-28-2022 Basophils/100 WBC (Bld) 0.4 % 0-1 [facility] Eosinophils/100 WBC (Bld) 0.4 % 0-5 [facility] Neutrophils (Bld) [#/Vol] 5.3 10*3/uL 2.0-7.7 [facility] Neutrophils/100 WBC (Bld) 67.8 % 47-70 [facility] WBC (Bld) [#/Vol] 7.8 10*3/uL 4.4-11.0 [facility] Blood erythrocytes count (nu mber/volume)Ordered By: Renard Burgos on 02-28-2022 RBC (Bld) [#/Vol] 4.58 10*6/uL 4.6-6.2 [facility] Blood hemoglobin measurement (mass/volume)Ordered By: Renard Burgos on 02-28-2022 Hemoglobin (Bld) [Mass/Vol] 14.3 g/dL 13.0-16.5 [facility] Blood lymphocytes/100 leukoc ytesOrdered By: Renard Burgos on 02-28-2022 Lymphocytes/100 WBC (Bld) 23.8 % 19-41 [facility] Blood monocytes/100 leukocyt esOrdered By: Renard Burgos on 02-28-2022 Monocytes/100 WBC (Bld) 7.2 % 0-10 [facility] Blood platelet mean volumeOr dered By: Renard Burgos on 02-28-2022 Platelet mean volume (Bld) [Entitic vol] 10.8 fL 6.2-12.0 [facility] Determination of erythrocyte mean corpuscular volume (MCV)Ordered By: Renard Burgos on 02-28-2022 MCV (RBC) [Entitic vol] 91.5 fL 80-94 [facility] Hematocrit Auto (Bld) [Volum e fraction]Ordered By: Renard Burgos on 02-28-2022 Hematocrit (Bld) [Volume fraction] 41.9 % 40-54 [facility] - Hematology and Cell countsOrdered By: Renard Burgos on 02-28-2022 Erythrocyte distribution width (RBC) [Entitic vol] 42.2 fL 35.1-43.9 [facility] Erythrocyte distribution width (RBC) [Ratio] 12.7 % 11.6-14.6 [facility] Immature granulocytes/100 WBC (Bld) 0.400 % 0.0-0.9 [facility] Comment on above: IG% - Immature Granu locytes (promyelocytes, myelocytes and metamyelocytes) > 1% indicates that a LEFT SHIFT is Present. MCH (RBC) [Entitic mass] 31.2 pg 27.0-32.0 [facility] Nucleated RBC/100 WBC (Bld) [Ratio] 0 % 0-5 [facility] MCHC Auto (RBC) [Mass/Vol]Or dered By: Renard Burgos on 02-28-2022 MCHC (RBC) [Mass/Vol] 34.1 g/dL 32-36 [facility] Platelets bldOrdered By: Lyubov Burgos on 02-28-2022 Platelets (Bld) [#/Vol] 202 10*3/uL 150-450 [facility] Absolute lymphocyte countOrd ered By: Renard Burgos on 02-21-2022 Lymphocytes Auto (Unsp spec) [#/Vol] 1.93 10*3/uL 0.83-4.51 [facility] Basophil percentageOrdered B y: Renard Burgos on 02-21-2022 Basophils/100 WBC (Bld) 0.4 % 0-1 [facility] Eosinophils/100 WBC (Bld) 0.4 % 0-5 [facility] Neutrophils (Bld) [#/Vol] 4.6 10*3/uL 2.0-7.7 [facility] Neutrophils/100 WBC (Bld) 63.4 % 47-70 [facility] WBC (Bld) [#/Vol] 7.2 10*3/uL 4.4-11.0 [facility] Blood erythrocytes count (nu mber/volume)Ordered By: Renard Burgos on 02-21-2022 RBC (Bld) [#/Vol] 4.54 10*6/uL 4.6-6.2 [facility] Blood hemoglobin measurement (mass/volume)Ordered By: Renard Burgos on 02-21-2022 Hemoglobin (Bld) [Mass/Vol] 14.1 g/dL 13.0-16.5 [facility] Blood lymphocytes/100 leukoc ytesOrdered By: Renard Burgos on 02-21-2022 Lymphocytes/100 WBC (Bld) 26.7 % 19-41 [facility] Blood monocytes/100 leukocyt esOrdered By: Renard Burgos on 02-21-2022 Monocytes/100 WBC (Bld) 8.8 % 0-10 [facility] Blood platelet mean volumeOr dered By: Renard Burgos on 02-21-2022 Platelet mean volume (Bld) [Entitic vol] 11.1 fL 6.2-12.0 [facility] Determination of erythrocyte mean corpuscular volume (MCV)Ordered By: Renard Burgos on 02-21-2022 MCV (RBC) [Entitic vol] 91.4 fL 80-94 [facility] Hematocrit Auto (Bld) [Volum e fraction]Ordered By: Renard Burgos on 02-21-2022 Hematocrit (Bld) [Volume fraction] 41.5 % 40-54 [facility] - Hematology and Cell countsOrdered By: Renard Burgos on 02-21-2022 Erythrocyte distribution width (RBC) [Entitic vol] 41.9 fL 35.1-43.9 [facility] Erythrocyte distribution width (RBC) [Ratio] 12.6 % 11.6-14.6 [facility] Immature granulocytes/100 WBC (Bld) 0.300 % 0.0-0.9 [facility] Comment on above: IG% - Immature Granu locytes (promyelocytes, myelocytes and metamyelocytes) > 1% indicates that a LEFT SHIFT is Present. MCH (RBC) [Entitic mass] 31.1 pg 27.0-32.0 [facility] Nucleated RBC/100 WBC (Bld) [Ratio] 0 % 0-5 [facility] MCHC Auto (RBC) [Mass/Vol]Or dered By: Renard Burgos on 02-21-2022 MCHC (RBC) [Mass/Vol] 34.0 g/dL 32-36 [facility] Platelets bldOrdered By: [facility] on 02-21-2022 Platelets (Bld) [#/Vol] 189 10*3/uL 150-450 [facility] Absolute lymphocyte countOrd ered By: Renard Burgos on 02-14-2022 Lymphocytes Auto (Unsp spec) [#/Vol] 2.00 10*3/uL 0.83-4.51 [facility] Basophil percentageOrdered B y: Renard Burgos on 02-14-2022 Basophils/100 WBC (Bld) 0.6 % 0-1 [facility] Eosinophils/100 WBC (Bld) 0.3 % 0-5 [facility] Neutrophils (Bld) [#/Vol] 6.4 10*3/uL 2.0-7.7 [facility] Neutrophils/100 WBC (Bld) 69.5 % 47-70 [facility] WBC (Bld) [#/Vol] 9.3 10*3/uL 4.4-11.0 [facility] Blood erythrocytes count (nu mber/volume)Ordered By: Renard Burgos on 02-14-2022 RBC (Bld) [#/Vol] 4.65 10*6/uL 4.6-6.2 [facility] Blood hemoglobin measurement (mass/volume)Ordered By: Renard Burgos on 02-14-2022 Hemoglobin (Bld) [Mass/Vol] 14.6 g/dL 13.0-16.5 [facility] Blood lymphocytes/100 leukoc ytesOrdered By: Renard Burgos on 02-14-2022 Lymphocytes/100 WBC (Bld) 21.6 % 19-41 [facility] Blood monocytes/100 leukocyt esOrdered By: Renard Burgos on 02-14-2022 Monocytes/100 WBC (Bld) 7.6 % 0-10 [facility] Blood platelet mean volumeOr dered By: Renard Burgos on 02-14-2022 Platelet mean volume (Bld) [Entitic vol] 11.1 fL 6.2-12.0 [facility] Determination of erythrocyte mean corpuscular volume (MCV)Ordered By: Renard Burgos on 02-14-2022 MCV (RBC) [Entitic vol] 91.8 fL 80-94 [facility] Hematocrit Auto (Bld) [Volum e fraction]Ordered By: Renard Burgos on 02-14-2022 Hematocrit (Bld) [Volume fraction] 42.7 % 40-54 [facility] - Hematology and Cell countsOrdered By: Renard Burgos on 02-14-2022 Erythrocyte distribution width (RBC) [Entitic vol] 43.7 fL 35.1-43.9 [facility] Erythrocyte distribution width (RBC) [Ratio] 13.0 % 11.6-14.6 [facility] Immature granulocytes/100 WBC (Bld) 0.400 % 0.0-0.9 [facility] Comment on above: IG% - Immature Granu locytes (promyelocytes, myelocytes and metamyelocytes) > 1% indicates that a LEFT SHIFT is Present. MCH (RBC) [Entitic mass] 31.4 pg 27.0-32.0 [facility] Nucleated RBC/100 WBC (Bld) [Ratio] 0 % 0-5 [facility] MCHC Auto (RBC) [Mass/Vol]Or dered By: Renard Burgos on 02-14-2022 MCHC (RBC) [Mass/Vol] 34.2 g/dL 32-36 [facility] Platelets bldOrdered By: Lyubov Burgos on 02-14-2022 Platelets (Bld) [#/Vol] 187 10*3/uL 150-450 [facility] Absolute lymphocyte countOrd ered By: Renard Burgos on 02-07-2022 Lymphocytes Auto (Unsp spec) [#/Vol] 1.97 10*3/uL 0.83-4.51 [facility] Basophil percentageOrdered B y: Renard Burgos on 02-07-2022 Basophils/100 WBC (Bld) 0.4 % 0-1 [facility] Eosinophils/100 WBC (Bld) 0.3 % 0-5 [facility] Neutrophils (Bld) [#/Vol] 4.2 10*3/uL 2.0-7.7 [facility] Neutrophils/100 WBC (Bld) 61.8 % 47-70 [facility] WBC (Bld) [#/Vol] 6.8 10*3/uL 4.4-11.0 [facility] Blood erythrocytes count (nu mber/volume)Ordered By: Renard Burgos on 02-07-2022 RBC (Bld) [#/Vol] 4.86 10*6/uL 4.6-6.2 [facility] Blood hemoglobin measurement (mass/volume)Ordered By: Renard Burgos on 02-07-2022 Hemoglobin (Bld) [Mass/Vol] 15.4 g/dL 13.0-16.5 [facility] Blood lymphocytes/100 leukoc ytesOrdered By: Renard Burgos on 02-07-2022 Lymphocytes/100 WBC (Bld) 29.1 % 19-41 [facility] Blood monocytes/100 leukocyt esOrdered By: Renard Burgos on 02-07-2022 Monocytes/100 WBC (Bld) 8.1 % 0-10 [facility] Blood platelet mean volumeOr dered By: Renard Burgos on 02-07-2022 Platelet mean volume (Bld) [Entitic vol] 11.0 fL 6.2-12.0 [facility] Determination of erythrocyte mean corpuscular volume (MCV)Ordered By: Renard Burgos on 02-07-2022 MCV (RBC) [Entitic vol] 92.6 fL 80-94 [facility] Hematocrit Auto (Bld) [Volum e fraction]Ordered By: Renard Burgos on 02-07-2022 Hematocrit (Bld) [Volume fraction] 45.0 % 40-54 [facility] - Hematology and Cell countsOrdered By: Renard Burgos on 02-07-2022 Erythrocyte distribution width (RBC) [Entitic vol] 43.1 fL 35.1-43.9 [facility] Erythrocyte distribution width (RBC) [Ratio] 12.7 % 11.6-14.6 [facility] Immature granulocytes/100 WBC (Bld) 0.300 % 0.0-0.9 [facility] Comment on above: IG% - Immature Granu locytes (promyelocytes, myelocytes and metamyelocytes) > 1% indicates that a LEFT SHIFT is Present. MCH (RBC) [Entitic mass] 31.7 pg 27.0-32.0 [facility] Nucleated RBC/100 WBC (Bld) [Ratio] 0 % 0-5 [facility] MCHC Auto (RBC) [Mass/Vol]Or dered By: Renard Burgos on 02-07-2022 MCHC (RBC) [Mass/Vol] 34.2 g/dL 32-36 [facility] Platelets bldOrdered By: Lyubov Burgos on 02-07-2022 Platelets (Bld) [#/Vol] 196 10*3/uL 150-450 [facility] Absolute lymphocyte countOrd ered By: Renard Burgos on 01-31-2022 Lymphocytes Auto (Unsp spec) [#/Vol] 2.19 10*3/uL 0.83-4.51 [facility] Basophil percentageOrdered B y: Renard Burgos on 01-31-2022 Basophils/100 WBC (Bld) 0.3 % 0-1 [facility] Eosinophils/100 WBC (Bld) 0.2 % 0-5 [facility] Neutrophils (Bld) [#/Vol] 5.7 10*3/uL 2.0-7.7 [facility] Neutrophils/100 WBC (Bld) 64.9 % 47-70 [facility] WBC (Bld) [#/Vol] 8.8 10*3/uL 4.4-11.0 [facility] Blood erythrocytes count (nu mber/volume)Ordered By: Renard Burgos on 01-31-2022 RBC (Bld) [#/Vol] 4.81 10*6/uL 4.6-6.2 [facility] Blood hemoglobin measurement (mass/volume)Ordered By: Renard Burgos on 01-31-2022 Hemoglobin (Bld) [Mass/Vol] 14.9 g/dL 13.0-16.5 [facility] Blood lymphocytes/100 leukoc ytesOrdered By: Renard Burgos on 01-31-2022 Lymphocytes/100 WBC (Bld) 24.9 % 19-41 [facility] Blood monocytes/100 leukocyt esOrdered By: Renard Burgos on 01-31-2022 Monocytes/100 WBC (Bld) 9.2 % 0-10 [facility] Blood platelet mean volumeOr dered By: Renard Burgos on 01-31-2022 Platelet mean volume (Bld) [Entitic vol] 11.0 fL 6.2-12.0 [facility] Determination of erythrocyte mean corpuscular volume (MCV)Ordered By: Renard Burgos on 01-31-2022 MCV (RBC) [Entitic vol] 92.9 fL 80-94 [facility] Hematocrit Auto (Bld) [Volum e fraction]Ordered By: Renard Burgos on 01-31-2022 Hematocrit (Bld) [Volume fraction] 44.7 % 40-54 [facility] - Hematology and Cell countsOrdered By: Renard Burgos on 01-31-2022 Erythrocyte distribution width (RBC) [Entitic vol] 42.9 fL 35.1-43.9 [facility] Erythrocyte distribution width (RBC) [Ratio] 12.6 % 11.6-14.6 [facility] Immature granulocytes/100 WBC (Bld) 0.500 % 0.0-0.9 [facility] Comment on above: IG% - Immature Granu locytes (promyelocytes, myelocytes and metamyelocytes) > 1% indicates that a LEFT SHIFT is Present. MCH (RBC) [Entitic mass] 31.0 pg 27.0-32.0 [facility] Nucleated RBC/100 WBC (Bld) [Ratio] 0 % 0-5 [facility] MCHC Auto (RBC) [Mass/Vol]Or dered By: Renard Burgos on 01-31-2022 MCHC (RBC) [Mass/Vol] 33.3 g/dL 32-36 [facility] Platelets bldOrdered By: Lyubov Burgos on 01-31-2022 Platelets (Bld) [#/Vol] 204 10*3/uL 150-450 [facility] Absolute lymphocyte countOrd ered By: Renard Burgos on 01-24-2022 Lymphocytes Auto (Unsp spec) [#/Vol] 1.82 10*3/uL 0.83-4.51 [facility] Basophil percentageOrdered B y: Renard Burgos on 01-24-2022 Basophils/100 WBC (Bld) 0.3 % 0-1 [facility] Eosinophils/100 WBC (Bld) 0.3 % 0-5 [facility] Neutrophils (Bld) [#/Vol] 6.1 10*3/uL 2.0-7.7 [facility] Neutrophils/100 WBC (Bld) 69.9 % 47-70 [facility] WBC (Bld) [#/Vol] 8.7 10*3/uL 4.4-11.0 [facility] Blood erythrocytes count (nu mber/volume)Ordered By: Renard Burgos on 01-24-2022 RBC (Bld) [#/Vol] 4.74 10*6/uL 4.6-6.2 [facility] Blood hemoglobin measurement (mass/volume)Ordered By: Renard Burgos on 01-24-2022 Hemoglobin (Bld) [Mass/Vol] 14.5 g/dL 13.0-16.5 [facility] Blood lymphocytes/100 leukoc ytesOrdered By: Renard Burgos on 01-24-2022 Lymphocytes/100 WBC (Bld) 20.9 % 19-41 [facility] Blood monocytes/100 leukocyt esOrdered By: Renard Burgos on 01-24-2022 Monocytes/100 WBC (Bld) 8.4 % 0-10 [facility] Blood platelet mean volumeOr dered By: Renard Burgos on 01-24-2022 Platelet mean volume (Bld) [Entitic vol] 10.9 fL 6.2-12.0 [facility] Determination of erythrocyte mean corpuscular volume (MCV)Ordered By: Renard Burgos on 01-24-2022 MCV (RBC) [Entitic vol] 92.0 fL 80-94 [facility] Hematocrit Auto (Bld) [Volum e fraction]Ordered By: Renard Burgos on 01-24-2022 Hematocrit (Bld) [Volume fraction] 43.6 % 40-54 [facility] Laboratory - Hematology and Cell countsOrdered By: Renard Burgos on 01-24-2022 Erythrocyte distribution width (RBC) [Entitic vol] 42.3 fL 35.1-43.9 [facility] Erythrocyte distribution width (RBC) [Ratio] 12.5 % 11.6-14.6 [facility] Immature granulocytes/100 WBC (Bld) 0.200 % 0.0-0.9 [facility] Comment on above: IG% - Immature Granu locytes (promyelocytes, myelocytes and metamyelocytes) > 1% indicates that a LEFT SHIFT is Present. MCH (RBC) [Entitic mass] 30.6 pg 27.0-32.0 [facility] Nucleated RBC/100 WBC (Bld) [Ratio] 0 % 0-5 [facility] MCHC Auto (RBC) [Mass/Vol]Or dered By: Renard Burgos on 01-24-2022 MCHC (RBC) [Mass/Vol] 33.3 g/dL 32-36 [facility] Platelets bldOrdered By: Lyubov Burgos on 01-24-2022 Platelets (Bld) [#/Vol] 192 10*3/uL 150-450 [facility] Absolute lymphocyte counton 01-17-2022 Lymphocytes Auto (Unsp spec) [#/Vol] 1.89 10*3/uL 0.83-4.51 [facility] Work Phone: [phone] Basophil percentageon 2021 Basophils/100 WBC (Bld) 0.4 % 0-1 [facility] Work Phone: Eosinophils/100 WBC (Bld) 0.3 % 0-5 [facility] Work Phone: Neutrophils (Bld) [#/Vol] 4.4 10*3/uL 2.0-7.7 [facility] Work Phone: Neutrophils/100 WBC (Bld) 62.4 % 47-70 [facility] Work Phone: WBC (Bld) [#/Vol] 7.0 10*3/uL 4.4-11.0 [facility] Work Phone: Blood erythrocytes count (nu mber/volume)on 01-17-2022 RBC (Bld) [#/Vol] 4.64 10*6/uL 4.6-6.2 [facility] Work [facility]: Blood hemoglobin measurement (mass/volume)on 01-17-2022 Hemoglobin (Bld) [Mass/Vol] 14.1 g/dL 13.0-16.5 [facility] Work Phone: Blood lymphocytes/100 leukoc yteson 01-17-2022 Lymphocytes/100 WBC (Bld) 27.0 % 19-41 [facility] Work Phone: Blood monocytes/100 leukocyt eson 01-17-2022 Monocytes/100 WBC (Bld) 9.3 % 0-10 [facility] Work Phone: Blood platelet mean volumeon 01-17-2022 Platelet mean volume (Bld) [Entitic vol] 11.1 fL 6.2-12.0 [facility] Work Phone: Determination of erythrocyte mean corpuscular volume (MCV)on 01-17-2022 MCV (RBC) [Entitic vol] 91.8 fL 80-94 [facility] Work Phone: Hematocrit Auto (Bld) [Volum e fraction]on 01-17-2022 Hematocrit (Bld) [Volume fraction] 42.6 % 40-54 [facility] Work Phone: Laboratory - Hematology and Cell countson 01-17-2022 Erythrocyte distribution width (RBC) [Entitic vol] 41.5 fL 35.1-43.9 [facility] Work Phone: Erythrocyte distribution width (RBC) [Ratio] 12.5 % 11.6-14.6 [facility] Work Phone: Immature granulocytes/100 WBC (Bld) 0.600 % 0.0-0.9 [facility] Work Phone: Comment on above: IG% - Immature Granu locytes (promyelocytes, myelocytes and metamyelocytes) > 1% indicates that a LEFT SHIFT is Present. MCH (RBC) [Entitic mass] 30.4 pg 27.0-32.0 [facility] Work Phone: Nucleated RBC/100 WBC (Bld) [Ratio] 0 % 0-5 [facility] Work Phone: MCHC Auto (RBC) [Mass/Vol]on 01-17-2022 MCHC (RBC) [Mass/Vol] 33.1 g/dL 32-36 [facility] Work Phone: Platelets bldon 01-17-2022 Platelets (Bld) [#/Vol] 200 10*3/uL 150-450 [facility] Work Phone: [phone] Absolute lymphocyte counton 01-10-2022 Lymphocytes Auto (Unsp spec) [#/Vol] 2.07 10*3/uL 0.83-4.51 [facility] Work Phone: Basophil percentageon 2021 Basophils/100 WBC (Bld) 0.6 % 0-1 [facility] Work Phone: Eosinophils/100 WBC (Bld) 0.3 % 0-5 [facility] Work Phone: Neutrophils (Bld) [#/Vol] 4.2 10*3/uL 2.0-7.7 [facility] Work Phone: Neutrophils/100 WBC (Bld) 59.2 % 47-70 [facility] Work Phone: WBC (Bld) [#/Vol] 7.0 10*3/uL 4.4-11.0 [facility] Work [facility]: Blood erythrocytes count (nu mber/volume)on 01-10-2022 RBC (Bld) [#/Vol] 4.83 10*6/uL 4.6-6.2 [facility] Work Phone: Blood hemoglobin measurement (mass/volume)on 01-10-2022 Hemoglobin (Bld) [Mass/Vol] 14.8 g/dL 13.0-16.5 [facility] Work Phone: Blood lymphocytes/100 leukoc yteson 01-10-2022 Lymphocytes/100 WBC (Bld) 29.5 % 19-41 [facility] Work Phone: Blood monocytes/100 leukocyt eson 01-10-2022 Monocytes/100 WBC (Bld) 10.1 % 0-10 [facility] Work Phone: Blood platelet mean volumeon 01-10-2022 Platelet mean volume (Bld) [Entitic vol] 10.8 fL 6.2-12.0 [facility] Work Phone: Determination of erythrocyte mean corpuscular volume (MCV)on 01-10-2022 MCV (RBC) [Entitic vol] 97.5 fL 80-94 [facility] Work Phone: Hematocrit Auto (Bld) [Volum e fraction]on 01-10-2022 Hematocrit (Bld) [Volume fraction] 47.1 % 40-54 [facility] Work Phone: Laboratory - Hematology and Cell countson 01-10-2022 Erythrocyte distribution width (RBC) [Entitic vol] 44.9 fL 35.1-43.9 [facility] Work Phone: Erythrocyte distribution width (RBC) [Ratio] 12.7 % 11.6-14.6 [facility] Work Phone: Immature granulocytes/100 WBC (Bld) 0.300 % 0.0-0.9 [facility] Work Phone: Comment on above: IG% - Immature Granu locytes (promyelocytes, myelocytes and metamyelocytes) > 1% indicates that a LEFT SHIFT is Present. MCH (RBC) [Entitic mass] 30.6 pg 27.0-32.0 [facility] Work Phone: Nucleated RBC/100 WBC (Bld) [Ratio] 0 % 0-5 [facility] Work Phone: MCHC Auto (RBC) [Mass/Vol]on 01-10-2022 MCHC (RBC) [Mass/Vol] 31.4 g/dL 32-36 [facility] Work Phone: [phone] Platelets bldon 01-10-2022 Platelets (Bld) [#/Vol] 169 10*3/uL 150-450 [facility] Work Phone: [phone] Absolute lymphocyte counton 01-04-2022 Lymphocytes Auto (Unsp spec) [#/Vol] 1.84 10*3/uL 0.83-4.51 [facility] Work Phone: Basophil percentageon 2021 Basophils/100 WBC (Bld) 0.3 % 0-1 [facility] Work Phone: Eosinophils/100 WBC (Bld) 0.3 % 0-5 [facility] Work Phone: Neutrophils (Bld) [#/Vol] 4.8 10*3/uL 2.0-7.7 [facility] Work Phone: Neutrophils/100 WBC (Bld) 64.8 % 47-70 [facility] Work Phone: [phone] WBC (Bld) [#/Vol] 7.4 10*3/uL 4.4-11.0 [facility] Work Phone: Blood erythrocytes count (nu mber/volume)on 01-04-2022 RBC (Bld) [#/Vol] 4.67 10*6/uL 4.6-6.2 [facility] Work Phone: Blood hemoglobin measurement (mass/volume)on 01-04-2022 Hemoglobin (Bld) [Mass/Vol] 14.2 g/dL 13.0-16.5 [facility] Work Phone: [phone] Blood lymphocytes/100 leukoc yteson 01-04-2022 Lymphocytes/100 WBC (Bld) 25.0 % 19-41 [facility] Work Phone: Blood monocytes/100 leukocyt eson 01-04-2022 Monocytes/100 WBC (Bld) 9.1 % 0-10 [facility] Work Phone: Blood platelet mean volumeon 01-04-2022 Platelet mean volume (Bld) [Entitic vol] 11.0 fL 6.2-12.0 [facility] Work Phone: Determination of erythrocyte mean corpuscular volume (MCV)on 01-04-2022 MCV (RBC) [Entitic vol] 91.0 fL 80-94 [facility] Work Phone: Hematocrit Auto (Bld) [Volum e fraction]on 01-04-2022 Hematocrit (Bld) [Volume fraction] 42.5 % 40-54 [facility] Work Phone: Laboratory - Hematology and Cell countson 01-04-2022 Erythrocyte distribution width (RBC) [Entitic vol] 41.4 fL 35.1-43.9 [facility] Work Phone: Erythrocyte distribution width (RBC) [Ratio] 12.7 % 11.6-14.6 [facility] Work Phone: Immature granulocytes/100 WBC (Bld) 0.500 % 0.0-0.9 [facility] Work Phone: Comment on above: IG% - Immature Granu locytes (promyelocytes, myelocytes and metamyelocytes) > 1% indicates that a LEFT SHIFT is Present. MCH (RBC) [Entitic mass] 30.4 pg 27.0-32.0 [facility] Work Phone: Nucleated RBC/100 WBC (Bld) [Ratio] 0 % 0-5 [facility] Work Phone: MCHC Auto (RBC) [Mass/Vol]on 01-04-2022 MCHC (RBC) [Mass/Vol] 33.4 g/dL 32-36 [facility] Work Phone: Platelets bldon 01-04-2022 Platelets (Bld) [#/Vol] 184 10*3/uL 150-450 [facility] Work Phone: Absolute lymphocyte counton 12-27-2021 Lymphocytes Auto (Unsp spec) [#/Vol] 1.79 10*3/uL 0.83-4.51 [facility] Work Phone: Basophil percentageon 2021 Basophils/100 WBC (Bld) 0.4 % 0-1 [facility] Work Phone: [phone] Eosinophils/100 WBC (Bld) 0.4 % 0-5 [facility] Work Phone: Neutrophils (Bld) [#/Vol] 4.9 10*3/uL 2.0-7.7 [facility] Work Phone: Neutrophils/100 WBC (Bld) 65.2 % 47-70 [facility] Work Phone: WBC (Bld) [#/Vol] 7.6 10*3/uL 4.4-11.0 [facility] Work Phone: [phone] Blood erythrocytes count (nu mber/volume)on 12-27-2021 RBC (Bld) [#/Vol] 4.66 10*6/uL 4.6-6.2 [facility] Work Phone: Blood hemoglobin measurement (mass/volume)on 12-27-2021 Hemoglobin (Bld) [Mass/Vol] 14.5 g/dL 13.0-16.5 [facility] Work Phone: Blood lymphocytes/100 leukoc yteson 12-27-2021 Lymphocytes/100 WBC (Bld) 23.6 % 19-41 [facility] Work Phone: [phone] Blood monocytes/100 leukocyt eson 12-27-2021 Monocytes/100 WBC (Bld) 10.0 % 0-10 [facility] Work Phone: Blood platelet mean volumeon 12-27-2021 Platelet mean volume (Bld) [Entitic vol] 10.9 fL 6.2-12.0 [facility] Work Phone: Determination of erythrocyte mean corpuscular volume (MCV)on 12-27-2021 MCV (RBC) [Entitic vol] 91.0 fL 80-94 [facility] Work Phone: Hematocrit Auto (Bld) [Volum e fraction]on 12-27-2021 Hematocrit (Bld) [Volume fraction] 42.4 % 40-54 [facility] Work Phone: Laboratory - Hematology and Cell countson 12-27-2021 Erythrocyte distribution width (RBC) [Entitic vol] 41.2 fL 35.1-43.9 [facility] Work Phone: Erythrocyte distribution width (RBC) [Ratio] 12.6 % 11.6-14.6 [facility] Work Phone: Immature granulocytes/100 WBC (Bld) 0.400 % 0.0-0.9 [facility] Work Phone: Comment on above: IG% - Immature Granu locytes (promyelocytes, myelocytes and metamyelocytes) > 1% indicates that a LEFT SHIFT is Present. MCH (RBC) [Entitic mass] 31.1 pg 27.0-32.0 [facility] Work Phone: Nucleated RBC/100 WBC (Bld) [Ratio] 0 % 0-5 [facility] Work Phone: MCHC Auto (RBC) [Mass/Vol]on 12-27-2021 MCHC (RBC) [Mass/Vol] 34.2 g/dL 32-36 [facility] Work Phone: Platelets bldon 12-27-2021 Platelets (Bld) [#/Vol] 185 10*3/uL 150-450 [facility] Work Phone: Absolute lymphocyte counton 12-20-2021 Lymphocytes Auto (Unsp spec) [#/Vol] 2.02 10*3/uL 0.83-4.51 [facility] Work Phone: [phone] Basophil percentageon 2021 Basophils/100 WBC (Bld) 0.2 % 0-1 [facility] Work Phone: [phone] Eosinophils/100 WBC (Bld) 0.3 % 0-5 [facility] Work Phone: [phone] Neutrophils (Bld) [#/Vol] 3.6 10*3/uL 2.0-7.7 [facility] Work Phone: [phone] Neutrophils/100 WBC (Bld) 57.8 % 47-70 [facility] Work Phone: [phone] WBC (Bld) [#/Vol] 6.1 10*3/uL 4.4-11.0 [facility] Work Phone: Blood erythrocytes count (nu mber/volume)on 12-20-2021 RBC (Bld) [#/Vol] 4.81 10*6/uL 4.6-6.2 [facility] Work Phone: Blood hemoglobin measurement (mass/volume)on 12-20-2021 Hemoglobin (Bld) [Mass/Vol] 14.8 g/dL 13.0-16.5 [facility] Work Phone: [phone] Blood lymphocytes/100 leukoc yteson 12-20-2021 Lymphocytes/100 WBC (Bld) 32.9 % 19-41 [facility] Work Phone: [phone] Blood monocytes/100 leukocyt eson 12-20-2021 Monocytes/100 WBC (Bld) 8.3 % 0-10 [facility] Work Phone: [phone] Blood platelet adequacy dete ction by light microscopyon 12-20-2021 Platelets LM Ql (Bld) ADEQUATE ADEQ [facility] Work Phone: [phone] Blood platelet mean volumeon 12-20-2021 Platelet mean volume (Bld) [Entitic vol] 11.1 fL 6.2-12.0 [facility] Work Phone: Determination of erythrocyte mean corpuscular volume (MCV)on 12-20-2021 MCV (RBC) [Entitic vol] 93.1 fL 80-94 [facility] Work Phone: Hematocrit Auto (Bld) [Volum e fraction]on 12-20-2021 Hematocrit (Bld) [Volume fraction] 44.8 % 40-54 [facility] Work Phone: Laboratory - Hematology and Cell countson 12-20-2021 Erythrocyte distribution width (RBC) [Entitic vol] 42.4 fL 35.1-43.9 [facility] Work Phone: Erythrocyte distribution width (RBC) [Ratio] 12.4 % 11.6-14.6 [facility] Work Phone: Immature granulocytes/100 WBC (Bld) 0.500 % 0.0-0.9 [facility] Work Phone: Comment on above: IG% - Immature Granu locytes (promyelocytes, myelocytes and metamyelocytes) > 1% indicates that a LEFT SHIFT is Present. MCH (RBC) [Entitic mass] 30.8 pg 27.0-32.0 [facility] Work Phone: Nucleated RBC/100 WBC (Bld) [Ratio] 0 % 0-5 [facility] Work Phone: MCHC Auto (RBC) [Mass/Vol]on 12-20-2021 MCHC (RBC) [Mass/Vol] 33.0 g/dL 32-36 [facility] Work Phone: Platelets bldon 12-20-2021 Platelets (Bld) [#/Vol] See comment 150-450 [facility] Work Phone: Comment on above: Please [...] Auto (Unsp spec) [#/Vol] 1.88 10*3/uL 0.83-4.51 [facility] Work Phone: Basophil percentageon 2021 Basophils/100 WBC (Bld) 0.6 % 0-1 [facility] Work Phone: Eosinophils/100 WBC (Bld) 0.3 % 0-5 [facility] Work Phone: Neutrophils (Bld) [#/Vol] 4.5 10*3/uL 2.0-7.7 [facility] Work Phone: Neutrophils/100 WBC (Bld) 63.6 % 47-70 [facility] Work Phone: WBC (Bld) [#/Vol] 7.1 10*3/uL 4.4-11.0 [facility] Work Phone: Blood erythrocytes count (nu mber/volume)on 12-13-2021 RBC (Bld) [#/Vol] 4.70 10*6/uL 4.6-6.2 [facility] Work Phone: Blood hemoglobin measurement (mass/volume)on 12-13-2021 Hemoglobin (Bld) [Mass/Vol] 14.4 g/dL 13.0-16.5 [facility] Work Phone: Blood lymphocytes/100 leukoc yteson 12-13-2021 Lymphocytes/100 WBC (Bld) 26.7 % 19-41 [facility] Work Phone: Blood monocytes/100 leukocyt eson 12-13-2021 Monocytes/100 WBC (Bld) 8.5 % 0-10 [facility] Work Phone: Blood platelet mean volumeon 12-13-2021 Platelet mean volume (Bld) [Entitic vol] 10.9 fL 6.2-12.0 [facility] Work Phone: Determination of erythrocyte mean corpuscular volume (MCV)on 12-13-2021 MCV (RBC) [Entitic vol] 90.9 fL 80-94 [facility] Work Phone: Hematocrit Auto (Bld) [Volum e fraction]on 12-13-2021 Hematocrit (Bld) [Volume fraction] 42.7 % 40-54 [facility] Work Phone: Laboratory - Hematology and Cell countson 12-13-2021 Erythrocyte distribution width (RBC) [Entitic vol] 42.1 fL 35.1-43.9 [facility] Work Phone: Erythrocyte distribution width (RBC) [Ratio] 12.6 % 11.6-14.6 [facility] Work Phone: Immature granulocytes/100 WBC (Bld) 0.300 % 0.0-0.9 [facility] Work Phone: Comment on above: IG% - Immature Granu locytes (promyelocytes, myelocytes and metamyelocytes) > 1% indicates that a LEFT SHIFT is Present. MCH (RBC) [Entitic mass] 30.6 pg 27.0-32.0 [facility] Work Phone: Nucleated RBC/100 WBC (Bld) [Ratio] 0 % 0-5 [facility] Work Phone: MCHC Auto (RBC) [Mass/Vol]on 12-13-2021 MCHC (RBC) [Mass/Vol] 33.7 g/dL 32-36 [facility] Work Phone: Platelets bldon 12-13-2021 Platelets (Bld) [#/Vol] 194 10*3/uL 150-450 [facility] Work Phone: Absolute lymphocyte counton 12-06-2021 Lymphocytes Auto (Unsp spec) [#/Vol] 1.91 10*3/uL 0.83-4.51 [facility] Work Phone: Basophil percentageon 2021 Basophils/100 WBC (Bld) 0.4 % 0-1 [facility] Work Phone: Eosinophils/100 WBC (Bld) 0.3 % 0-5 [facility] Work Phone: Neutrophils (Bld) [#/Vol] 4.4 10*3/uL 2.0-7.7 [facility] Work Phone: Neutrophils/100 WBC (Bld) 62.2 % 47-70 [facility] Work Phone: WBC (Bld) [#/Vol] 7.0 10*3/uL 4.4-11.0 [facility] Work Phone: Blood erythrocytes count (nu mber/volume)on 12-06-2021 RBC (Bld) [#/Vol] 4.58 10*6/uL 4.6-6.2 [facility] Work Phone: Blood hemoglobin measurement (mass/volume)on 12-06-2021 Hemoglobin (Bld) [Mass/Vol] 13.8 g/dL 13.0-16.5 [facility] Work Phone: Blood lymphocytes/100 leukoc yteson 12-06-2021 Lymphocytes/100 WBC (Bld) 27.2 % 19-41 [facility] Work Phone: Blood monocytes/100 leukocyt eson 12-06-2021 Monocytes/100 WBC (Bld) 9.6 % 0-10 [facility] Work Phone: Blood platelet mean volumeon 12-06-2021 Platelet mean volume (Bld) [Entitic vol] 11.1 fL 6.2-12.0 [facility] Work Phone: Determination of erythrocyte mean corpuscular volume (MCV)on 12-06-2021 MCV (RBC) [Entitic vol] 92.1 fL 80-94 [facility] Work Phone: Hematocrit Auto (Bld) [Volum e fraction]on 12-06-2021 Hematocrit (Bld) [Volume fraction] 42.2 % 40-54 [facility] Work Phone: [phone] Laboratory - Hematology and Cell countson 12-06-2021 Erythrocyte distribution width (RBC) [Entitic vol] 42.1 fL 35.1-43.9 [facility] Work Phone: Erythrocyte distribution width (RBC) [Ratio] 12.6 % 11.6-14.6 [facility] Work Phone: Immature granulocytes/100 WBC (Bld) 0.300 % 0.0-0.9 [facility] Work Phone: Comment on above: IG% - Immature Granu locytes (promyelocytes, myelocytes and metamyelocytes) > 1% indicates that a LEFT SHIFT is Present. MCH (RBC) [Entitic mass] 30.1 pg 27.0-32.0 [facility] Work Phone: [phone] Nucleated RBC/100 WBC (Bld) [Ratio] 0 % 0-5 [facility] Work Phone: MCHC Auto (RBC) [Mass/Vol]on 12-06-2021 MCHC (RBC) [Mass/Vol] 32.7 g/dL 32-36 [facility] Work Phone: Platelets bldon 12-06-2021 Platelets (Bld) [#/Vol] 180 10*3/uL 150-450 [facility] Work Phone: [phone] Absolute lymphocyte counton 11-29-2021 Lymphocytes Auto (Unsp spec) [#/Vol] 2.00 10*3/uL 0.83-4.51 [facility] Work Phone: Basophil percentageon 2021 Basophils/100 WBC (Bld) 0.4 % 0-1 [facility] Work Phone: Eosinophils/100 WBC (Bld) 0.3 % 0-5 [facility] Work Phone: Neutrophils (Bld) [#/Vol] 4.4 10*3/uL 2.0-7.7 [facility] Work Phone: Neutrophils/100 WBC (Bld) 62.8 % 47-70 [facility] Work Phone: WBC (Bld) [#/Vol] 7.0 10*3/uL 4.4-11.0 [facility] Work Phone: Blood erythrocytes count (nu mber/volume)on 11-29-2021 RBC (Bld) [#/Vol] 4.72 10*6/uL 4.6-6.2 [facility] Work Phone: Blood hemoglobin measurement (mass/volume)on 11-29-2021 Hemoglobin (Bld) [Mass/Vol] 14.6 g/dL 13.0-16.5 [facility] Work Phone: Blood lymphocytes/100 leukoc yteson 11-29-2021 Lymphocytes/100 WBC (Bld) 28.6 % 19-41 [facility] Work Phone: Blood monocytes/100 leukocyt eson 11-29-2021 Monocytes/100 WBC (Bld) 7.6 % 0-10 [facility] Work Phone: Blood platelet mean volumeon 11-29-2021 Platelet mean volume (Bld) [Entitic vol] 11.1 fL 6.2-12.0 [facility] Work Phone: Determination of erythrocyte mean corpuscular volume (MCV)on 11-29-2021 MCV (RBC) [Entitic vol] 91.9 fL 80-94 [facility] Work Phone: Hematocrit Auto (Bld) [Volum e fraction]on 11-29-2021 Hematocrit (Bld) [Volume fraction] 43.4 % 40-54 [facility] Work Phone: Laboratory - Hematology and Cell countson 11-29-2021 Erythrocyte distribution width (RBC) [Entitic vol] 41.8 fL 35.1-43.9 [facility] Work Phone: Erythrocyte distribution width (RBC) [Ratio] 12.4 % 11.6-14.6 [facility] Work Phone: Immature granulocytes/100 WBC (Bld) 0.300 % 0.0-0.9 [facility] Work Phone: Comment on above: IG% - Immature Granu locytes (promyelocytes, myelocytes and metamyelocytes) > 1% indicates that a LEFT SHIFT is Present. MCH (RBC) [Entitic mass] 30.9 pg 27.0-32.0 [facility] Work Phone: Nucleated RBC/100 WBC (Bld) [Ratio] 0 % 0-5 [facility] Work Phone: MCHC Auto (RBC) [Mass/Vol]on 11-29-2021 MCHC (RBC) [Mass/Vol] 33.6 g/dL 32-36 [facility] Work Phone: Platelets bldon 11-29-2021 Platelets (Bld) [#/Vol] 205 10*3/uL 150-450 [facility] Work Phone: Absolute lymphocyte counton 11-22-2021 Lymphocytes Auto (Unsp spec) [#/Vol] 2.25 10*3/uL 0.83-4.51 [facility] Work Phone: Basophil percentageon 2021 Basophils/100 WBC (Bld) 0.4 % 0-1 [facility] Work Phone: Eosinophils/100 WBC (Bld) 0.4 % 0-5 [facility] Work Phone: Neutrophils (Bld) [#/Vol] 5.1 10*3/uL 2.0-7.7 [facility] Work Phone: Neutrophils/100 WBC (Bld) 61.7 % 47-70 [facility] Work Phone: WBC (Bld) [#/Vol] 8.3 10*3/uL 4.4-11.0 [facility] Work Phone: Blood erythrocytes count (nu mber/volume)on 11-22-2021 RBC (Bld) [#/Vol] 4.47 10*6/uL 4.6-6.2 [facility] Work Phone: Blood hemoglobin measurement (mass/volume)on 11-22-2021 Hemoglobin (Bld) [Mass/Vol] 13.5 g/dL 13.0-16.5 [facility] Work Phone: Blood lymphocytes/100 leukoc yteson 11-22-2021 Lymphocytes/100 WBC (Bld) 27.2 % 19-41 [facility] Work Phone: Blood monocytes/100 leukocyt eson 11-22-2021 Monocytes/100 WBC (Bld) 9.9 % 0-10 [facility] Work Phone: Blood platelet mean volumeon 11-22-2021 Platelet mean volume (Bld) [Entitic vol] 11.1 fL 6.2-12.0 [facility] Work Phone: Determination of erythrocyte mean corpuscular volume (MCV)on 11-22-2021 MCV (RBC) [Entitic vol] 92.2 fL 80-94 [facility] Work Phone: Hematocrit Auto (Bld) [Volum e fraction]on 11-22-2021 Hematocrit (Bld) [Volume fraction] 41.2 % 40-54 [facility] Work Phone: Laboratory - Hematology and Cell countson 11-22-2021 Erythrocyte distribution width (RBC) [Entitic vol] 42.3 fL 35.1-43.9 [facility] Work Phone: Erythrocyte distribution width (RBC) [Ratio] 12.6 % 11.6-14.6 [facility] Work Phone: Immature granulocytes/100 WBC (Bld) 0.400 % 0.0-0.9 [facility] Work Phone: Comment on above: IG% - Immature Granu locytes (promyelocytes, myelocytes and metamyelocytes) > 1% indicates that a LEFT SHIFT is Present. MCH (RBC) [Entitic mass] 30.2 pg 27.0-32.0 [facility] Work Phone: Nucleated RBC/100 WBC (Bld) [Ratio] 0 % 0-5 [facility] Work Phone: MCHC Auto (RBC) [Mass/Vol]on 11-22-2021 MCHC (RBC) [Mass/Vol] 32.8 g/dL 32-36 [facility] Work Phone: Platelets bldon 11-22-2021 Platelets (Bld) [#/Vol] 190 10*3/uL 150-450 [facility] Work Phone: Absolute lymphocyte counton 11-15-2021 Lymphocytes Auto (Unsp spec) [#/Vol] 2.09 10*3/uL 0.83-4.51 [facility] Work Phone: Basophil percentageon 2021 Basophils/100 WBC (Bld) 0.6 % 0-1 [facility] Work Phone: Eosinophils/100 WBC (Bld) 0.4 % 0-5 [facility] Work Phone: Neutrophils (Bld) [#/Vol] 4.2 10*3/uL 2.0-7.7 [facility] Work Phone: Neutrophils/100 WBC (Bld) 59.1 % 47-70 [facility] Work Phone: WBC (Bld) [#/Vol] 7.1 10*3/uL 4.4-11.0 [facility] Work [facility]: Blood erythrocytes count (nu mber/volume)on 11-15-2021 RBC (Bld) [#/Vol] 4.72 10*6/uL 4.6-6.2 [facility] Work Phone: [phone] Blood hemoglobin measurement (mass/volume)on 11-15-2021 Hemoglobin (Bld) [Mass/Vol] 14.6 g/dL 13.0-16.5 [facility] Work Phone: Blood lymphocytes/100 leukoc yteson 11-15-2021 Lymphocytes/100 WBC (Bld) 29.4 % 19-41 [facility] Work Phone: Blood monocytes/100 leukocyt eson 11-15-2021 Monocytes/100 WBC (Bld) 10.1 % 0-10 [facility] Work Phone: Blood platelet mean volumeon 11-15-2021 Platelet mean volume (Bld) [Entitic vol] 10.7 fL 6.2-12.0 [facility] Work Phone: Determination of erythrocyte mean corpuscular volume (MCV)on 11-15-2021 MCV (RBC) [Entitic vol] 91.9 fL 80-94 [facility] Work Phone: Hematocrit Auto (Bld) [Volum e fraction]on 11-15-2021 Hematocrit (Bld) [Volume fraction] 43.4 % 40-54 [facility] Work Phone: Laboratory - Hematology and Cell countson 11-15-2021 Erythrocyte distribution width (RBC) [Entitic vol] 41.9 fL 35.1-43.9 [facility] Work Phone: Erythrocyte distribution width (RBC) [Ratio] 12.4 % 11.6-14.6 [facility] Work Phone: Immature granulocytes/100 WBC (Bld) 0.400 % 0.0-0.9 [facility] Work Phone: Comment on above: IG% - Immature Granu locytes (promyelocytes, myelocytes and metamyelocytes) > 1% indicates that a LEFT SHIFT is Present. MCH (RBC) [Entitic mass] 30.9 pg 27.0-32.0 [facility] Work Phone: Nucleated RBC/100 WBC (Bld) [Ratio] 0 % 0-5 [facility] Work Phone: MCHC Auto (RBC) [Mass/Vol]on 11-15-2021 MCHC (RBC) [Mass/Vol] 33.6 g/dL 32-36 [facility] Work Phone: [phone] Platelets bldon 11-15-2021 Platelets (Bld) [#/Vol] 191 10*3/uL 150-450 [facility] Work Phone: Absolute lymphocyte counton 11-08-2021 Lymphocytes Auto (Unsp spec) [#/Vol] 1.97 10*3/uL 0.83-4.51 [facility] Work Phone: Basophil percentageon 2021 Basophils/100 WBC (Bld) 0.3 % 0-1 [facility] Work Phone: [phone] Eosinophils/100 WBC (Bld) 0.3 % 0-5 [facility] Work Phone: Neutrophils (Bld) [#/Vol] 5.1 10*3/uL 2.0-7.7 [facility] Work Phone: Neutrophils/100 WBC (Bld) 64.6 % 47-70 [facility] Work Phone: WBC (Bld) [#/Vol] 7.8 10*3/uL 4.4-11.0 [facility] Work Phone: Blood erythrocytes count (nu mber/volume)on 11-08-2021 RBC (Bld) [#/Vol] 4.53 10*6/uL 4.6-6.2 [facility] Work Phone: Blood hemoglobin measurement (mass/volume)on 11-08-2021 Hemoglobin (Bld) [Mass/Vol] 14.2 g/dL 13.0-16.5 [facility] Work Phone: [phone] Blood lymphocytes/100 leukoc yteson 11-08-2021 Lymphocytes/100 WBC (Bld) 25.2 % 19-41 [facility] Work Phone: Blood monocytes/100 leukocyt eson 11-08-2021 Monocytes/100 WBC (Bld) 9.3 % 0-10 [facility] Work Phone: Blood platelet mean volumeon 11-08-2021 Platelet mean volume (Bld) [Entitic vol] 10.9 fL 6.2-12.0 [facility] Work Phone: Determination of erythrocyte mean corpuscular volume (MCV)on 11-08-2021 MCV (RBC) [Entitic vol] 92.7 fL 80-94 [facility] Work Phone: Hematocrit Auto (Bld) [Volum e fraction]on 11-08-2021 Hematocrit (Bld) [Volume fraction] 42.0 % 40-54 [facility] Work Phone: Laboratory - Hematology and Cell countson 11-08-2021 Erythrocyte distribution width (RBC) [Entitic vol] 42.3 fL 35.1-43.9 [facility] Work Phone: Erythrocyte distribution width (RBC) [Ratio] 12.5 % 11.6-14.6 [facility] Work Phone: Immature granulocytes/100 WBC (Bld) 0.300 % 0.0-0.9 [facility] Work Phone: Comment on above: IG% - Immature Granu locytes (promyelocytes, myelocytes and metamyelocytes) > 1% indicates that a LEFT SHIFT is Present. MCH (RBC) [Entitic mass] 31.3 pg 27.0-32.0 [facility] Work Phone: Nucleated RBC/100 WBC (Bld) [Ratio] 0 % 0-5 [facility] Work Phone: MCHC Auto (RBC) [Mass/Vol]on 11-08-2021 MCHC (RBC) [Mass/Vol] 33.8 g/dL 32-36 [facility] Work Phone: Platelets bldon 11-08-2021 Platelets (Bld) [#/Vol] 207 10*3/uL 150-450 [facility] Work Phone: [phone] Absolute lymphocyte counton 10-25-2021 Lymphocytes Auto (Unsp spec) [#/Vol] 2.05 10*3/uL 0.83-4.51 [facility] Work Phone: [phone] Basophil percentageon 2021 Basophils/100 WBC (Bld) 0.4 % 0-1 [facility] Work Phone: Eosinophils/100 WBC (Bld) 0.3 % 0-5 [facility] Work Phone: [phone] Neutrophils (Bld) [#/Vol] 4.2 10*3/uL 2.0-7.7 [facility] Work Phone: [phone] Neutrophils/100 WBC (Bld) 61.3 % 47-70 [facility] Work Phone: [phone] WBC (Bld) [#/Vol] 6.8 10*3/uL 4.4-11.0 [facility] Work Phone: Blood erythrocytes count (nu mber/volume)on 10-25-2021 RBC (Bld) [#/Vol] 4.56 10*6/uL 4.6-6.2 [facility] Work Phone: Blood hemoglobin measurement (mass/volume)on 10-25-2021 Hemoglobin (Bld) [Mass/Vol] 13.9 g/dL 13.0-16.5 [facility] Work Phone: [phone] Blood lymphocytes/100 leukoc yteson 10-25-2021 Lymphocytes/100 WBC (Bld) 30.1 % 19-41 [facility] Work Phone: [phone] Blood monocytes/100 leukocyt eson 10-25-2021 Monocytes/100 WBC (Bld) 7.3 % 0-10 [facility] Work Phone: [phone] Blood platelet mean volumeon 10-25-2021 Platelet mean volume (Bld) [Entitic vol] 10.6 fL 6.2-12.0 [facility] Work Phone: Determination of erythrocyte mean corpuscular volume (MCV)on 10-25-2021 MCV (RBC) [Entitic vol] 91.0 fL 80-94 [facility] Work Phone: Hematocrit Auto (Bld) [Volum e fraction]on 10-25-2021 Hematocrit (Bld) [Volume fraction] 41.5 % 40-54 [facility] Work Phone: Laboratory - Hematology and Cell countson 10-25-2021 Erythrocyte distribution width (RBC) [Entitic vol] 41.7 fL 35.1-43.9 [facility] Work Phone: Erythrocyte distribution width (RBC) [Ratio] 12.6 % 11.6-14.6 [facility] Work Phone: Immature granulocytes/100 WBC (Bld) 0.600 % 0.0-0.9 [facility] Work Phone: Comment on above: IG% - Immature Granu locytes (promyelocytes, myelocytes and metamyelocytes) > 1% indicates that a LEFT SHIFT is Present. MCH (RBC) [Entitic mass] 30.5 pg 27.0-32.0 [facility] Work Phone: Nucleated RBC/100 WBC (Bld) [Ratio] 0 % 0-5 [facility] Work Phone: MCHC Auto (RBC) [Mass/Vol]on 10-25-2021 MCHC (RBC) [Mass/Vol] 33.5 g/dL 32-36 [facility] Work Phone: Platelets bldon 10-25-2021 Platelets (Bld) [#/Vol] 191 10*3/uL 150-450 [facility] Work Phone: Absolute lymphocyte counton 10-18-2021 Lymphocytes Auto (Unsp spec) [#/Vol] 1.66 10*3/uL 0.83-4.51 [facility] Work Phone: Basophil percentageon 2021 Basophils/100 WBC (Bld) 0.5 % 0-1 [facility] Work Phone: Eosinophils/100 WBC (Bld) 0.2 % 0-5 [facility] Work Phone: Neutrophils (Bld) [#/Vol] 4.3 10*3/uL 2.0-7.7 [facility] Work Phone: Neutrophils/100 WBC (Bld) 65.0 % 47-70 [facility] Work Phone: [phone] WBC (Bld) [#/Vol] 6.6 10*3/uL 4.4-11.0 [facility] Work Phone: Blood erythrocytes count (nu mber/volume)on 10-18-2021 RBC (Bld) [#/Vol] 4.57 10*6/uL 4.6-6.2 [facility] Work Phone: Blood hemoglobin measurement (mass/volume)on 10-18-2021 Hemoglobin (Bld) [Mass/Vol] 14.1 g/dL 13.0-16.5 [facility] Work Phone: Blood lymphocytes/100 leukoc yteson 10-18-2021 Lymphocytes/100 WBC (Bld) 25.2 % 19-41 [facility] Work Phone: Blood monocytes/100 leukocyt eson 10-18-2021 Monocytes/100 WBC (Bld) 8.8 % 0-10 [facility] Work Phone: Blood platelet mean volumeon 10-18-2021 Platelet mean volume (Bld) [Entitic vol] 10.6 fL 6.2-12.0 [facility] Work Phone: [phone] Determination of erythrocyte mean corpuscular volume (MCV)on 10-18-2021 MCV (RBC) [Entitic vol] 91.7 fL 80-94 [facility] Work Phone: Hematocrit Auto (Bld) [Volum e fraction]on 10-18-2021 Hematocrit (Bld) [Volume fraction] 41.9 % 40-54 [facility] Work Phone: Laboratory - Hematology and Cell countson 10-18-2021 Erythrocyte distribution width (RBC) [Entitic vol] 41.6 fL 35.1-43.9 [facility] Work Phone: Erythrocyte distribution width (RBC) [Ratio] 12.5 % 11.6-14.6 [facility] Work Phone: [phone] Immature granulocytes/100 WBC (Bld) 0.300 % 0.0-0.9 [facility] Work Phone: Comment on above: IG% - Immature Granu locytes (promyelocytes, myelocytes and metamyelocytes) > 1% indicates that a LEFT SHIFT is Present. MCH (RBC) [Entitic mass] 30.9 pg 27.0-32.0 [facility] Work Phone: Nucleated RBC/100 WBC (Bld) [Ratio] 0 % 0-5 [facility] Work Phone: MCHC Auto (RBC) [Mass/Vol]on 10-18-2021 MCHC (RBC) [Mass/Vol] 33.7 g/dL 32-36 [facility] Work Phone: [phone] Platelets bldon 10-18-2021 Platelets (Bld) [#/Vol] 185 10*3/uL 150-450 [facility] Work Phone: [phone] Absolute lymphocyte counton 10-11-2021 Lymphocytes Auto (Unsp spec) [#/Vol] 1.66 10*3/uL 0.83-4.51 [facility] Work Phone: [phone] Basophil percentageon 2021 Basophils/100 WBC (Bld) 0.5 % 0-1 [facility] Work Phone: [phone] Eosinophils/100 WBC (Bld) 0.1 % 0-5 [facility] Work Phone: Neutrophils (Bld) [#/Vol] 5.9 10*3/uL 2.0-7.7 [facility] Work Phone: Neutrophils/100 WBC (Bld) 70.8 % 47-70 [facility] Work Phone: WBC (Bld) [#/Vol] 8.3 10*3/uL 4.4-11.0 [facility] Work [facility]: Blood erythrocytes count (nu mber/volume)on 10-11-2021 RBC (Bld) [#/Vol] 4.66 10*6/uL 4.6-6.2 [facility] Work Phone: Blood hemoglobin measurement (mass/volume)on 10-11-2021 Hemoglobin (Bld) [Mass/Vol] 14.1 g/dL 13.0-16.5 [facility] Work Phone: Blood lymphocytes/100 leukoc yteson 10-11-2021 Lymphocytes/100 WBC (Bld) 20.0 % 19-41 [facility] Work Phone: Blood monocytes/100 leukocyt eson 10-11-2021 Monocytes/100 WBC (Bld) 8.2 % 0-10 [facility] Work Phone: Blood platelet mean volumeon 10-11-2021 Platelet mean volume (Bld) [Entitic vol] 10.7 fL 6.2-12.0 [facility] Work Phone: Determination of erythrocyte mean corpuscular volume (MCV)on 10-11-2021 MCV (RBC) [Entitic vol] 91.8 fL 80-94 [facility] Work Phone: Hematocrit Auto (Bld) [Volum e fraction]on 10-11-2021 Hematocrit (Bld) [Volume fraction] 42.8 % 40-54 [facility] Work Phone: Laboratory - Hematology and Cell countson 10-11-2021 Erythrocyte distribution width (RBC) [Entitic vol] 42.8 fL 35.1-43.9 [facility] Work Phone: Erythrocyte distribution width (RBC) [Ratio] 12.8 % 11.6-14.6 [facility] Work Phone: Immature granulocytes/100 WBC (Bld) 0.400 % 0.0-0.9 [facility] Work Phone: Comment on above: IG% - Immature Granu locytes (promyelocytes, myelocytes and metamyelocytes) > 1% indicates that a LEFT SHIFT is Present. MCH (RBC) [Entitic mass] 30.3 pg 27.0-32.0 [facility] Work Phone: Nucleated RBC/100 WBC (Bld) [Ratio] 0 % 0-5 [facility] Work Phone: MCHC Auto (RBC) [Mass/Vol]on 10-11-2021 MCHC (RBC) [Mass/Vol] 32.9 g/dL 32-36 [facility] Work Phone: Platelets bldon 10-11-2021 Platelets (Bld) [#/Vol] 193 10*3/uL 150-450 [facility] Work Phone: Absolute lymphocyte counton 10-04-2021 Lymphocytes Auto (Unsp spec) [#/Vol] 1.97 10*3/uL 0.83-4.51 [facility] Work Phone: Basophil percentageon 2021 Basophils/100 WBC (Bld) 0.5 % 0-1 [facility] Work Phone: Eosinophils/100 WBC (Bld) 0.1 % 0-5 [facility] Work Phone: Neutrophils (Bld) [#/Vol] 5.0 10*3/uL 2.0-7.7 [facility] Work Phone: Neutrophils/100 WBC (Bld) 64.4 % 47-70 [facility] Work Phone: WBC (Bld) [#/Vol] 7.7 10*3/uL 4.4-11.0 [facility] Work Phone: Blood erythrocytes count (nu mber/volume)on 10-04-2021 RBC (Bld) [#/Vol] 4.52 10*6/uL 4.6-6.2 [facility] Work Phone: Blood hemoglobin measurement (mass/volume)on 10-04-2021 Hemoglobin (Bld) [Mass/Vol] 13.9 g/dL 13.0-16.5 [facility] Work Phone: Blood lymphocytes/100 leukoc yteson 10-04-2021 Lymphocytes/100 WBC (Bld) 25.6 % 19-41 [facility] Work Phone: Blood monocytes/100 leukocyt eson 10-04-2021 Monocytes/100 WBC (Bld) 9.0 % 0-10 [facility] Work Phone: Blood platelet mean volumeon 10-04-2021 Platelet mean volume (Bld) [Entitic vol] 11.0 fL 6.2-12.0 [facility] Work Phone: Determination of erythrocyte mean corpuscular volume (MCV)on 10-04-2021 MCV (RBC) [Entitic vol] 91.4 fL 80-94 [facility] Work Phone: Hematocrit Auto (Bld) [Volum e fraction]on 10-04-2021 Hematocrit (Bld) [Volume fraction] 41.3 % 40-54 [facility] Work Phone: Laboratory - Hematology and Cell countson 10-04-2021 Erythrocyte distribution width (RBC) [Entitic vol] 42.2 fL 35.1-43.9 [facility] Work Phone: Erythrocyte distribution width (RBC) [Ratio] 12.8 % 11.6-14.6 [facility] Work Phone: Immature granulocytes/100 WBC (Bld) 0.400 % 0.0-0.9 [facility] Work Phone: [phone] Comment on above: IG% - Immature Granu locytes (promyelocytes, myelocytes and metamyelocytes) > 1% indicates that a LEFT SHIFT is Present. MCH (RBC) [Entitic mass] 30.8 pg 27.0-32.0 [facility] Work Phone: Nucleated RBC/100 WBC (Bld) [Ratio] 0 % 0-5 [facility] Work Phone: MCHC Auto (RBC) [Mass/Vol]on 10-04-2021 MCHC (RBC) [Mass/Vol] 33.7 g/dL 32-36 [facility] Work Phone: Platelets bldon 10-04-2021 Platelets (Bld) [#/Vol] 179 10*3/uL 150-450 [facility] Work Phone: [phone] Absolute lymphocyte counton 09-28-2021 Lymphocytes Auto (Unsp spec) [#/Vol] 2.10 10*3/uL 0.83-4.51 [facility] Work Phone: Basophil percentageon 2021 Basophils/100 WBC (Bld) 0.4 % 0-1 [facility] Work Phone: Eosinophils/100 WBC (Bld) 0.3 % 0-5 [facility] Work Phone: Neutrophils (Bld) [#/Vol] 4.3 10*3/uL 2.0-7.7 [facility] Work Phone: Neutrophils/100 WBC (Bld) 59.9 % 47-70 [facility] Work Phone: WBC (Bld) [#/Vol] 7.2 10*3/uL 4.4-11.0 [facility] Work Phone: Blood erythrocytes count (nu mber/volume)on 09-28-2021 RBC (Bld) [#/Vol] 4.34 10*6/uL 4.6-6.2 [facility] Work Phone: Blood hemoglobin measurement (mass/volume)on 09-28-2021 Hemoglobin (Bld) [Mass/Vol] 13.3 g/dL 13.0-16.5 [facility] Work Phone: Blood lymphocytes/100 leukoc yteson 09-28-2021 Lymphocytes/100 WBC (Bld) 29.3 % 19-41 [facility] Work Phone: Blood monocytes/100 leukocyt eson 09-28-2021 Monocytes/100 WBC (Bld) 9.8 % 0-10 [facility] Work Phone: Blood platelet mean volumeon 09-28-2021 Platelet mean volume (Bld) [Entitic vol] 10.7 fL 6.2-12.0 [facility] Work Phone: Determination of erythrocyte mean corpuscular volume (MCV)on 09-28-2021 MCV (RBC) [Entitic vol] 91.2 fL 80-94 [facility] Work Phone: Hematocrit Auto (Bld) [Volum e fraction]on 09-28-2021 Hematocrit (Bld) [Volume fraction] 39.6 % 40-54 [facility] Work Phone: Laboratory - Hematology and Cell countson 09-28-2021 Erythrocyte distribution width (RBC) [Entitic vol] 41.8 fL 35.1-43.9 [facility] Work Phone: Erythrocyte distribution width (RBC) [Ratio] 12.6 % 11.6-14.6 [facility] Work Phone: Immature granulocytes/100 WBC (Bld) 0.300 % 0.0-0.9 [facility] Work Phone: Comment on above: IG% - Immature Granu locytes (promyelocytes, myelocytes and metamyelocytes) > 1% indicates that a LEFT SHIFT is Present. MCH (RBC) [Entitic mass] 30.6 pg 27.0-32.0 [facility] Work Phone: Nucleated RBC/100 WBC (Bld) [Ratio] 0 % 0-5 [facility] Work Phone: [phone] MCHC Auto (RBC) [Mass/Vol]on 09-28-2021 MCHC (RBC) [Mass/Vol] 33.6 g/dL 32-36 [facility] Work Phone: [phone] Platelets bldon 09-28-2021 Platelets (Bld) [#/Vol] 181 10*3/uL 150-450 [facility] Work Phone: [phone] Absolute lymphocyte counton 09-20-2021 Lymphocytes Auto (Unsp spec) [#/Vol] 1.79 10*3/uL 0.83-4.51 [facility] Work Phone: Basophil percentageon 2021 Basophils/100 WBC (Bld) 0.4 % 0-1 [facility] Work Phone: [phone] Eosinophils/100 WBC (Bld) 0.3 % 0-5 [facility] Work Phone: Neutrophils (Bld) [#/Vol] 4.1 10*3/uL 2.0-7.7 [facility] Work Phone: Neutrophils/100 WBC (Bld) 61.3 % 47-70 [facility] Work Phone: [phone] WBC (Bld) [#/Vol] 6.7 10*3/uL 4.4-11.0 [facility] Work Phone: Blood erythrocytes count (nu mber/volume)on 09-20-2021 RBC (Bld) [#/Vol] 4.32 10*6/uL 4.6-6.[facility] Work Phone: Blood hemoglobin measurement (mass/volume)on 09-20-2021 Hemoglobin (Bld) [Mass/Vol] 13.6 g/dL 13.0-16.5 [facility] Work Phone: [phone] Blood lymphocytes/100 leukoc yteson 09-20-2021 Lymphocytes/100 WBC (Bld) 26.8 % 19-41 [facility] Work Phone: Blood monocytes/100 leukocyt eson 09-20-2021 Monocytes/100 WBC (Bld) 10.8 % 0-10 [facility] Work Phone: Blood platelet mean volumeon 09-20-2021 Platelet mean volume (Bld) [Entitic vol] 10.7 fL 6.2-12.0 [facility] Work Phone: Determination of erythrocyte mean corpuscular volume (MCV)on 09-20-2021 MCV (RBC) [Entitic vol] 93.1 fL 80-94 [facility] Work Phone: Hematocrit Auto (Bld) [Volum e fraction]on 09-20-2021 Hematocrit (Bld) [Volume fraction] 40.2 % 40-54 [facility] Work Phone: Laboratory - Hematology and Cell countson 09-20-2021 Erythrocyte distribution width (RBC) [Entitic vol] 43.0 fL 35.1-43.9 [facility] Work Phone: Erythrocyte distribution width (RBC) [Ratio] 12.6 % 11.6-14.6 [facility] Work Phone: Immature granulocytes/100 WBC (Bld) 0.400 % 0.0-0.9 [facility] Work Phone: Comment on above: IG% - Immature Granu locytes (promyelocytes, myelocytes and metamyelocytes) > 1% indicates that a LEFT SHIFT is Present. MCH (RBC) [Entitic mass] 31.5 pg 27.0-32.0 [facility] Work Phone: Nucleated RBC/100 WBC (Bld) [Ratio] 0 % 0-5 [facility] Work Phone: MCHC Auto (RBC) [Mass/Vol]on 09-20-2021 MCHC (RBC) [Mass/Vol] 33.8 g/dL 32-36 [facility] Work Phone: Platelets bldon 09-20-2021 Platelets (Bld) [#/Vol] 170 10*3/uL 150-450 [facility] Work Phone: [phone] Absolute lymphocyte counton 09-13-2021 Lymphocytes Auto (Unsp spec) [#/Vol] 1.85 10*3/uL 0.83-4.51 [facility] Work Phone: Basophil percentageon 2021 Basophils/100 WBC (Bld) 0.6 % 0-1 [facility] Work Phone: Eosinophils/100 WBC (Bld) 0.3 % 0-5 [facility] Work Phone: [phone] Neutrophils (Bld) [#/Vol] 4.3 10*3/uL 2.0-7.7 [facility] Work Phone: Neutrophils/100 WBC (Bld) 63.1 % 47-70 [facility] Work Phone: WBC (Bld) [#/Vol] 6.7 10*3/uL 4.4-11.0 [facility] Work Phone: Blood erythrocytes count (nu mber/volume)on 09-13-2021 RBC (Bld) [#/Vol] 4.63 10*6/uL 4.6-6.2 [facility] Work Phone: Blood hemoglobin measurement (mass/volume)on 09-13-2021 Hemoglobin (Bld) [Mass/Vol] 14.2 g/dL 13.0-16.5 [facility] Work Phone: [phone] Blood lymphocytes/100 leukoc yteson 09-13-2021 Lymphocytes/100 WBC (Bld) 27.5 % 19-41 [facility] Work Phone: Blood monocytes/100 leukocyt eson 09-13-2021 Monocytes/100 WBC (Bld) 8.2 % 0-10 [facility] Work Phone: [phone] Blood platelet mean volumeon 09-13-2021 Platelet mean volume (Bld) [Entitic vol] 11.0 fL 6.2-12.0 [facility] Work Phone: Determination of erythrocyte mean corpuscular volume (MCV)on 09-13-2021 MCV (RBC) [Entitic vol] 93.5 fL 80-94 [facility] Work Phone: Hematocrit Auto (Bld) [Volum e fraction]on 09-13-2021 Hematocrit (Bld) [Volume fraction] 43.3 % 40-54 [facility] Work Phone: Laboratory - Hematology and Cell countson 09-13-2021 Erythrocyte distribution width (RBC) [Entitic vol] 43.0 fL 35.1-43.9 [facility] Work Phone: Erythrocyte distribution width (RBC) [Ratio] 12.6 % 11.6-14.6 [facility] Work Phone: Immature granulocytes/100 WBC (Bld) 0.300 % 0.0-0.9 [facility] Work Phone: Comment on above: IG% - Immature Granu locytes (promyelocytes, myelocytes and metamyelocytes) > 1% indicates that a LEFT SHIFT is Present. MCH (RBC) [Entitic mass] 30.7 pg 27.0-32.0 [facility] Work Phone: Nucleated RBC/100 WBC (Bld) [Ratio] 0 % 0-5 [facility] Work Phone: MCHC Auto (RBC) [Mass/Vol]on 09-13-2021 MCHC (RBC) [Mass/Vol] 32.8 g/dL 32-36 [facility] Work Phone: Platelets bldon 09-13-2021 Platelets (Bld) [#/Vol] 188 10*3/uL 150-450 [facility] Work Phone: Absolute lymphocyte counton 09-06-2021 Lymphocytes Auto (Unsp spec) [#/Vol] 1.86 10*3/uL 0.83-4.51 [facility] Work Phone: Basophil percentageon 2021 Basophils/100 WBC (Bld) 0.7 % 0-1 [facility] Work Phone: Eosinophils/100 WBC (Bld) 0.3 % 0-5 [facility] Work Phone: Neutrophils (Bld) [#/Vol] 4.4 10*3/uL 2.0-7.7 [facility] Work Phone: Neutrophils/100 WBC (Bld) 62.6 % 47-70 [facility] Work Phone: WBC (Bld) [#/Vol] 7.0 10*3/uL 4.4-11.0 [facility] Work Phone: Blood erythrocytes count (nu mber/volume)on 09-06-2021 RBC (Bld) [#/Vol] 4.51 10*6/uL 4.6-6.2 [facility] Work [facility]: Blood hemoglobin measurement (mass/volume)on 09-06-2021 Hemoglobin (Bld) [Mass/Vol] 13.8 g/dL 13.0-16.5 [facility] Work Phone: Blood lymphocytes/100 leukoc yteson 09-06-2021 Lymphocytes/100 WBC (Bld) 26.5 % 19-41 [facility] Work Phone: Blood monocytes/100 leukocyt eson 09-06-2021 Monocytes/100 WBC (Bld) 9.5 % 0-10 [facility] Work Phone: Blood platelet mean volumeon 09-06-2021 Platelet mean volume (Bld) [Entitic vol] 10.7 fL 6.2-12.0 [facility] Work Phone: Determination of erythrocyte mean corpuscular volume (MCV)on 09-06-2021 MCV (RBC) [Entitic vol] 92.9 fL 80-94 [facility] Work Phone: Hematocrit Auto (Bld) [Volum e fraction]on 09-06-2021 Hematocrit (Bld) [Volume fraction] 41.9 % 40-54 [facility] Work Phone: Laboratory - Hematology and Cell countson 09-06-2021 Erythrocyte distribution width (RBC) [Entitic vol] 43.0 fL 35.1-43.9 [facility] Work Phone: Erythrocyte distribution width (RBC) [Ratio] 12.7 % 11.6-14.6 [facility] Work Phone: Immature granulocytes/100 WBC (Bld) 0.400 % 0.0-0.9 [facility] Work Phone: Comment on above: IG% - Immature Granu locytes (promyelocytes, myelocytes and metamyelocytes) > 1% indicates that a LEFT SHIFT is Present. MCH (RBC) [Entitic mass] 30.6 pg 27.0-32.0 [facility] Work Phone: Nucleated RBC/100 WBC (Bld) [Ratio] 0 % 0-5 [facility] Work Phone: MCHC Auto (RBC) [Mass/Vol]on 09-06-2021 MCHC (RBC) [Mass/Vol] 32.9 g/dL 32-36 [facility] Work Phone: Platelets bldon 09-06-2021 Platelets (Bld) [#/Vol] 189 10*3/uL 150-450 [facility] Work Phone: Absolute lymphocyte counton 08-30-2021 Lymphocytes Auto (Unsp spec) [#/Vol] 1.44 10*3/uL 0.83-4.51 [facility] Work Phone: Basophil percentageon 2021 Basophils/100 WBC (Bld) 0.3 % 0-1 [facility] Work Phone: Eosinophils/100 WBC (Bld) 0.2 % 0-5 [facility] Work Phone: Neutrophils (Bld) [#/Vol] 9.6 10*3/uL 2.0-7.7 [facility] Work Phone: Neutrophils/100 WBC (Bld) 80.4 % 47-70 [facility] Work Phone: WBC (Bld) [#/Vol] 12.0 10*3/uL 4.4-11.0 [facility] Work Phone: Blood erythrocytes count (nu mber/volume)on 08-30-2021 RBC (Bld) [#/Vol] 4.52 10*6/uL 4.6-6.2 [facility] Work Phone: Blood hemoglobin measurement (mass/volume)on 08-30-2021 Hemoglobin (Bld) [Mass/Vol] 13.9 g/dL 13.0-16.5 [facility] Work Phone: Blood lymphocytes/100 leukoc yteson 08-30-2021 Lymphocytes/100 WBC (Bld) 12.0 % 19-41 [facility] Work Phone: Blood monocytes/100 leukocyt eson 08-30-2021 Monocytes/100 WBC (Bld) 6.7 % 0-10 [facility] Work Phone: Blood platelet mean volumeon 08-30-2021 Platelet mean volume (Bld) [Entitic vol] 11.3 fL 6.2-12.0 [facility] Work Phone: Determination of erythrocyte mean corpuscular volume (MCV)on 08-30-2021 MCV (RBC) [Entitic vol] 92.7 fL 80-94 [facility] Work Phone: Hematocrit Auto (Bld) [Volum e fraction]on 08-30-2021 Hematocrit (Bld) [Volume fraction] 41.9 % 40-54 [facility] Work Phone: Laboratory - Hematology and Cell countson 08-30-2021 Erythrocyte distribution width (RBC) [Entitic vol] 42.6 fL 35.1-43.9 [facility] Work Phone: [phone] Erythrocyte distribution width (RBC) [Ratio] 12.6 % 11.6-14.6 [facility] Work Phone: [phone] Immature granulocytes/100 WBC (Bld) 0.400 % 0.0-0.9 [facility] Work Phone: [phone] Comment on above: IG% - Immature Granu locytes (promyelocytes, myelocytes and metamyelocytes) > 1% indicates that a LEFT SHIFT is Present. MCH (RBC) [Entitic mass] 30.8 pg 27.0-32.0 [facility] Work Phone: [phone] Nucleated RBC/100 WBC (Bld) [Ratio] 0 % 0-5 [facility] Work Phone: MCHC Auto (RBC) [Mass/Vol]on 08-30-2021 MCHC (RBC) [Mass/Vol] 33.2 g/dL 32-36 [facility] Work Phone: Platelets bldon 08-30-2021 Platelets (Bld) [#/Vol] 200 10*3/uL 150-450 [facility] Work Phone: [phone] Absolute lymphocyte counton 08-23-2021 Lymphocytes Auto (Unsp spec) [#/Vol] 1.91 10*3/uL 0.83-4.51 [facility] Work Phone: Basophil percentageon 2021 Basophils/100 WBC (Bld) 0.4 % 0-1 [facility] Work Phone: Eosinophils/100 WBC (Bld) 0.3 % 0-5 [facility] Work Phone: Neutrophils (Bld) [#/Vol] 4.2 10*3/uL 2.0-7.7 [facility] Work Phone: [phone] Neutrophils/100 WBC (Bld) 62.3 % 47-70 [facility] Work Phone: WBC (Bld) [#/Vol] 6.8 10*3/uL 4.4-11.0 [facility]: Blood erythrocytes count (nu mber/volume)on 08-23-2021 RBC (Bld) [#/Vol] 4.46 10*6/uL 4.6-6.2 [facility] Work Phone: Blood hemoglobin measurement (mass/volume)on 08-23-2021 Hemoglobin (Bld) [Mass/Vol] 13.7 g/dL 13.0-16.5 [facility] Work Phone: Blood lymphocytes/100 leukoc yteson 08-23-2021 Lymphocytes/100 WBC (Bld) 28.3 % 19-41 [facility] Work Phone: Blood monocytes/100 leukocyt eson 08-23-2021 Monocytes/100 WBC (Bld) 8.1 % 0-10 [facility] Work Phone: Blood platelet mean volumeon 08-23-2021 Platelet mean volume (Bld) [Entitic vol] 10.6 fL 6.2-12.0 [facility] Work Phone: Determination of erythrocyte mean corpuscular volume (MCV)on 08-23-2021 MCV (RBC) [Entitic vol] 93.0 fL 80-94 [facility] Work Phone: Hematocrit Auto (Bld) [Volum e fraction]on 08-23-2021 Hematocrit (Bld) [Volume fraction] 41.5 % 40-54 [facility] Work Phone: Laboratory - Hematology and Cell countson 08-23-2021 Erythrocyte distribution width (RBC) [Entitic vol] 42.4 fL 35.1-43.9 [facility] Work Phone: Erythrocyte distribution width (RBC) [Ratio] 12.5 % 11.6-14.6 [facility] Work Phone: Immature granulocytes/100 WBC (Bld) 0.600 % 0.0-0.9 [facility] Work Phone: Comment on above: IG% - Immature Granu locytes (promyelocytes, myelocytes and metamyelocytes) > 1% indicates that a LEFT SHIFT is Present. MCH (RBC) [Entitic mass] 30.7 pg 27.0-32.0 [facility] Work Phone: Nucleated RBC/100 WBC (Bld) [Ratio] 0 % 0-5 [facility] Work Phone: MCHC Auto (RBC) [Mass/Vol]on 08-23-2021 MCHC (RBC) [Mass/Vol] 33.0 g/dL 32-36 [facility] Work Phone: Platelets bldon 08-23-2021 Platelets (Bld) [#/Vol] 198 10*3/uL 150-450 [facility] Work Phone: Basophil percentageon 2021 Basophil percentage 0 SEEN /hpf 0-5 [facility] Work Phone: Bilirubin Test strip Ql (U)o n 08-18-2021 Bilirubin Ql (U) Negative Negative [facility] Work Phone: Culture, urineon 08-18-2021 Bacteria identified Cx Nom (U) Culture exhibits no growth. [facility] Work Phone: Ketones Test strip Ql (U)on 08-18-2021 Ketones Ql (U) Negative Negative [facility] Work Phone: Mucus LM Ql (Urine sed)on Mucus Ql (Urine sed) 0 SEEN /hpf [facility] Work Phone: Nitrite Test strip Ql (U)on 08-18-2021 Nitrite Ql (U) Negative Negative [facility] Work Phone: Protein Test strip Ql (U)on 08-18-2021 Protein Ql (U) Negative Negative [facility] Work Phone: Squamous epithelial cells de tection in urine sediment by light microscopyon 08-18-2021 Epithelial cells.squamous LM Ql (Urine sed) 0 SEEN /hpf 0-5 [facility] Work Phone: Urine blood detectionon - RBC Ql (U) Negative Negative [facility] Work Phone: RBC Ql (U) 0 SEEN /hpf 0-5 [facility] Work Phone: Urine clarityon 08-18-2021 Clarity (U) Clear Clear [facility] Work Phone: Urine color determinationon 08-18-2021 Color (U) Yellow Yellow [facility] Work Phone: Urine glucose detectionon Glucose Ql (U) Normal mg/dl Normal [facility] Work Phone: Urine leukocyte esterase det ection by dipstickon 08-18-2021 Leukocyte esterase Test strip Ql (U) Negative Negative [facility] Work Phone: Urine pHon 08-18-2021 pH (U) 7.0 [pH] 5.0 - 8.0 [facility] Work Phone: Urine sediment bacteria coun t by microscopy (number/high power field)on 08-18-2021 Bacteria LM.HPF (Urine sed) [#/Area] 0 /[HPF] None Seen [facility] Work Phone: Urine specific gravity measu rementon 08-18-2021 Specific gravity (U) [Rel density] 1.010 1.002-1.030 [facility] Work Phone: Urobilinogen Auto test strip Ql (U)on 08-18-2021 Urobilinogen Ql (U) 4 mg/dl Normal [facility] Work Phone: Absolute lymphocyte counton 08-16-2021 Lymphocytes Auto (Unsp spec) [#/Vol] 1.71 10*3/uL 0.83-4.51 [facility] Work Phone: Basophil percentageon 2021 Basophils/100 WBC (Bld) 0.3 % 0-1 [facility] Work Phone: Eosinophils/100 WBC (Bld) 0.2 % 0-5 [facility] Work Phone: Neutrophils (Bld) [#/Vol] 8.6 10*3/uL 2.0-7.7 [facility] Work Phone: Neutrophils/100 WBC (Bld) 76.8 % 47-70 [facility] Work Phone: WBC (Bld) [#/Vol] 11.2 10*3/uL 4.4-11.0 [facility] Work Phone: Blood erythrocytes count (nu mber/volume)on 08-16-2021 RBC (Bld) [#/Vol] 4.42 10*6/uL 4.6-6.2 [facility] Work Phone: Blood hemoglobin measurement (mass/volume)on 08-16-2021 Hemoglobin (Bld) [Mass/Vol] 13.4 g/dL 13.0-16.5 [facility] Work Phone: Blood lymphocytes/100 leukoc yteson 08-16-2021 Lymphocytes/100 WBC (Bld) 15.2 % 19-41 [facility] Work Phone: Blood monocytes/100 leukocyt eson 08-16-2021 Monocytes/100 WBC (Bld) 7.1 % 0-10 [facility] Work Phone: [phone] Blood platelet mean volumeon 08-16-2021 Platelet mean volume (Bld) [Entitic vol] 11.0 fL 6.2-12.0 [facility] Work Phone: Determination of erythrocyte mean corpuscular volume (MCV)on 08-16-2021 MCV (RBC) [Entitic vol] 91.9 fL 80-94 [facility] Work Phone: Hematocrit Auto (Bld) [Volum e fraction]on 08-16-2021 Hematocrit (Bld) [Volume fraction] 40.6 % 40-54 [facility] Work Phone: Laboratory - Hematology and Cell countson 08-16-2021 Erythrocyte distribution width (RBC) [Entitic vol] 43.0 fL 35.1-43.9 [facility] Work Phone: Erythrocyte distribution width (RBC) [Ratio] 12.7 % 11.6-14.6 [facility] Work Phone: Immature granulocytes/100 WBC (Bld) 0.400 % 0.0-0.9 [facility] Work Phone: Comment on above: IG% - Immature Granu locytes (promyelocytes, myelocytes and metamyelocytes) > 1% indicates that a LEFT SHIFT is Present. MCH (RBC) [Entitic mass] 30.3 pg 27.0-32.0 [facility] Work Phone: Nucleated RBC/100 WBC (Bld) [Ratio] 0 % 0-5 [facility] Work Phone: MCHC Auto (RBC) [Mass/Vol]on 08-16-2021 MCHC (RBC) [Mass/Vol] 33.0 g/dL 32-36 [facility] Work Phone: Platelets bldon 08-16-2021 Platelets (Bld) [#/Vol] 187 10*3/uL 150-450 [facility] Work Phone: Absolute lymphocyte counton 08-09-2021 Lymphocytes Auto (Unsp spec) [#/Vol] 1.78 10*3/uL 0.83-4.51 [facility] Work Phone: Basophil percentageon 2021 Basophils/100 WBC (Bld) 0.5 % 0-1 [facility] Work Phone: [phone] Eosinophils/100 WBC (Bld) 0.1 % 0-5 [facility] Work Phone: Neutrophils (Bld) [#/Vol] 6.0 10*3/uL 2.0-7.7 [facility] Work Phone: Neutrophils/100 WBC (Bld) 71.3 % 47-70 [facility] Work Phone: WBC (Bld) [#/Vol] 8.4 10*3/uL 4.4-11.0 [facility]: Blood erythrocytes count (nu mber/volume)on 08-09-2021 RBC (Bld) [#/Vol] 4.37 10*6/uL 4.6-6.2 [facility] Work Phone: Blood hemoglobin measurement (mass/volume)on 08-09-2021 Hemoglobin (Bld) [Mass/Vol] 13.5 g/dL 13.0-16.5 [facility] Work Phone: Blood lymphocytes/100 leukoc yteson 08-09-2021 Lymphocytes/100 WBC (Bld) 21.2 % 19-41 [facility] Work Phone: Blood monocytes/100 leukocyt eson 08-09-2021 Monocytes/100 WBC (Bld) 6.5 % 0-10 [facility] Work Phone: Blood platelet mean volumeon 08-09-2021 Platelet mean volume (Bld) [Entitic vol] 11.1 fL 6.2-12.0 [facility] Work Phone: Determination of erythrocyte mean corpuscular volume (MCV)on 08-09-2021 MCV (RBC) [Entitic vol] 91.3 fL 80-94 [facility] Work Phone: Hematocrit Auto (Bld) [Volum e fraction]on 08-09-2021 Hematocrit (Bld) [Volume fraction] 39.9 % 40-54 [facility] Work Phone: Laboratory - Hematology and Cell countson 08-09-2021 Erythrocyte distribution width (RBC) [Entitic vol] 41.4 fL 35.1-43.9 [facility] Work Phone: Erythrocyte distribution width (RBC) [Ratio] 12.5 % 11.6-14.6 [facility] Work Phone: Immature granulocytes/100 WBC (Bld) 0.400 % 0.0-0.9 [facility] Work Phone: Comment on above: IG% - Immature Granu locytes (promyelocytes, myelocytes and metamyelocytes) > 1% indicates that a LEFT SHIFT is Present. MCH (RBC) [Entitic mass] 30.9 pg 27.0-32.0 [facility] Work Phone: Nucleated RBC/100 WBC (Bld) [Ratio] 0 % 0-5 [facility] Work Phone: MCHC Auto (RBC) [Mass/Vol]on 08-09-2021 MCHC (RBC) [Mass/Vol] 33.8 g/dL 32-36 [facility] Work Phone: Platelets bldon 08-09-2021 Platelets (Bld) [#/Vol] 177 10*3/uL 150-450 [facility] Work Phone: Absolute lymphocyte counton 08-02-2021 Lymphocytes Auto (Unsp spec) [#/Vol] 1.69 10*3/uL 0.83-4.51 [facility] Work Phone: Basophil percentageon 2021 Basophils/100 WBC (Bld) 0.3 % 0-1 [facility] Work Phone: Eosinophils/100 WBC (Bld) 0.3 % 0-5 [facility] Work Phone: Neutrophils (Bld) [#/Vol] 3.8 10*3/uL 2.0-7.7 [facility] Work Phone: Neutrophils/100 WBC (Bld) 61.9 % 47-70 [facility] Work Phone: WBC (Bld) [#/Vol] 6.1 10*3/uL 4.4-11.0 [facility] Work Phone: Blood erythrocytes count (nu mber/volume)on 08-02-2021 RBC (Bld) [#/Vol] 4.54 10*6/uL 4.6-6.2 [facility] Work Phone: Blood hemoglobin measurement (mass/volume)on 08-02-2021 Hemoglobin (Bld) [Mass/Vol] 13.8 g/dL 13.0-16.5 [facility] Work Phone: Blood lymphocytes/100 leukoc yteson 08-02-2021 Lymphocytes/100 WBC (Bld) 27.7 % 19-41 [facility] Work Phone: Blood monocytes/100 leukocyt eson 08-02-2021 Monocytes/100 WBC (Bld) 9.5 % 0-10 [facility] Work Phone: Blood platelet mean volumeon 08-02-2021 Platelet mean volume (Bld) [Entitic vol] 11.2 fL 6.2-12.0 [facility] Work Phone: Determination of erythrocyte mean corpuscular volume (MCV)on 08-02-2021 MCV (RBC) [Entitic vol] 90.1 fL 80-94 [facility] Work Phone: Hematocrit Auto (Bld) [Volum e fraction]on 08-02-2021 Hematocrit (Bld) [Volume fraction] 40.9 % 40-54 [facility] Work Phone: Laboratory - Hematology and Cell countson 08-02-2021 Erythrocyte distribution width (RBC) [Entitic vol] 40.3 fL 35.1-43.9 [facility] Work Phone: Erythrocyte distribution width (RBC) [Ratio] 12.4 % 11.6-14.6 [facility] Work Phone: Immature granulocytes/100 WBC (Bld) 0.300 % 0.0-0.9 [facility] Work Phone: Comment on above: IG% - Immature Granu locytes (promyelocytes, myelocytes and metamyelocytes) > 1% indicates that a LEFT SHIFT is Present. MCH (RBC) [Entitic mass] 30.4 pg 27.0-32.0 [facility] Work Phone: Nucleated RBC/100 WBC (Bld) [Ratio] 0 % 0-5 [facility] Work Phone: MCHC Auto (RBC) [Mass/Vol]on 08-02-2021 MCHC (RBC) [Mass/Vol] 33.7 g/dL 32-36 [facility] Work Phone: Platelets bldon 08-02-2021 Platelets (Bld) [#/Vol] 192 10*3/uL 150-450 [facility] Work Phone: [phone] Absolute lymphocyte counton 07-26-2021 Lymphocytes Auto (Unsp spec) [#/Vol] 1.83 10*3/uL 0.83-4.51 [facility] Work Phone: Basophil percentageon 2021 Basophils/100 WBC (Bld) 0.5 % 0-1 [facility] Work Phone: Eosinophils/100 WBC (Bld) 0.3 % 0-5 [facility] Work Phone: Neutrophils (Bld) [#/Vol] 3.3 10*3/uL 2.0-7.7 [facility] Work Phone: Neutrophils/100 WBC (Bld) 58.1 % 47-70 [facility] Work Phone: WBC (Bld) [#/Vol] 5.7 10*3/uL 4.4-11.0 [facility] Work Phone: Blood erythrocytes count (nu mber/volume)on 07-26-2021 RBC (Bld) [#/Vol] 4.21 10*6/uL 4.6-6.2 [facility] Work Phone: Blood hemoglobin measurement (mass/volume)on 07-26-2021 Hemoglobin (Bld) [Mass/Vol] 12.9 g/dL 13.0-16.5 [facility] Work Phone: Blood lymphocytes/100 leukoc yteson 07-26-2021 Lymphocytes/100 WBC (Bld) 31.9 % 19-41 [facility] Work Phone: Blood monocytes/100 leukocyt eson 07-26-2021 Monocytes/100 WBC (Bld) 8.9 % 0-10 [facility] Work Phone: Blood platelet mean volumeon 07-26-2021 Platelet mean volume (Bld) [Entitic vol] 11.5 fL 6.2-12.0 [facility] Work Phone: Determination of erythrocyte mean corpuscular volume (MCV)on 07-26-2021 MCV (RBC) [Entitic vol] 90.7 fL 80-94 [facility] Work Phone: Hematocrit Auto (Bld) [Volum e fraction]on 07-26-2021 Hematocrit (Bld) [Volume fraction] 38.2 % 40-54 [facility] Work Phone: Laboratory - Hematology and Cell countson 07-26-2021 Erythrocyte distribution width (RBC) [Entitic vol] 41.2 fL 35.1-43.9 [facility] Work Phone: Erythrocyte distribution width (RBC) [Ratio] 12.5 % 11.6-14.6 [facility] Work Phone: Immature granulocytes/100 WBC (Bld) 0.300 % 0.0-0.9 [facility] Work Phone: Comment on above: IG% - Immature Granu locytes (promyelocytes, myelocytes and metamyelocytes) > 1% indicates that a LEFT SHIFT is Present. MCH (RBC) [Entitic mass] 30.6 pg 27.0-32.0 [facility] Work Phone: Nucleated RBC/100 WBC (Bld) [Ratio] 0 % 0-5 [facility] Work Phone: MCHC Auto (RBC) [Mass/Vol]on 07-26-2021 MCHC (RBC) [Mass/Vol] 33.8 g/dL 32-36 [facility] Work Phone: Platelets bldon 07-26-2021 Platelets (Bld) [#/Vol] 180 10*3/uL 150-450 [facility] Work Phone: Absolute lymphocyte counton 07-19-2021 Lymphocytes Auto (Unsp spec) [#/Vol] 2.04 10*3/uL 0.83-4.51 [facility] Work Phone: Basophil percentageon 2021 Basophils/100 WBC (Bld) 0.3 % 0-1 [facility] Work Phone: Eosinophils/100 WBC (Bld) 0.4 % 0-5 [facility] Work Phone: Neutrophils (Bld) [#/Vol] 4.0 10*3/uL 2.0-7.7 [facility] Work Phone: Neutrophils/100 WBC (Bld) 59.2 % 47-70 [facility] Work Phone: WBC (Bld) [#/Vol] 6.7 10*3/uL 4.4-11.0 [facility] Work Phone: Blood erythrocytes count (nu mber/volume)on 07-19-2021 RBC (Bld) [#/Vol] 4.53 10*6/uL 4.6-6.2 [facility] Work Phone: Blood hemoglobin measurement (mass/volume)on 07-19-2021 Hemoglobin (Bld) [Mass/Vol] 14.1 g/dL 13.0-16.5 [facility] Work Phone: Blood lymphocytes/100 leukoc yteson 07-19-2021 Lymphocytes/100 WBC (Bld) 30.5 % 19-41 [facility] Work Phone: Blood monocytes/100 leukocyt eson 07-19-2021 Monocytes/100 WBC (Bld) 9.0 % 0-10 [facility] Work Phone: Blood platelet mean volumeon 07-19-2021 Platelet mean volume (Bld) [Entitic vol] 11.4 fL 6.2-12.0 [facility] Work Phone: Determination of erythrocyte mean corpuscular volume (MCV)on 07-19-2021 MCV (RBC) [Entitic vol] 90.5 fL 80-94 [facility] Work Phone: Hematocrit Auto (Bld) [Volum e fraction]on 07-19-2021 Hematocrit (Bld) [Volume fraction] 41.0 % 40-54 [facility] Work Phone: Laboratory - Hematology and Cell countson 07-19-2021 Erythrocyte distribution width (RBC) [Entitic vol] 41.1 fL 35.1-43.9 [facility] Work Phone: Erythrocyte distribution width (RBC) [Ratio] 12.5 % 11.6-14.6 [facility] Work Phone: Immature granulocytes/100 WBC (Bld) 0.600 % 0.0-0.9 [facility] Work Phone: Comment on above: IG% - Immature Granu locytes (promyelocytes, myelocytes and metamyelocytes) > 1% indicates that a LEFT SHIFT is Present. MCH (RBC) [Entitic mass] 31.1 pg 27.0-32.0 [facility] Work Phone: Nucleated RBC/100 WBC (Bld) [Ratio] 0 % 0-5 [facility] Work Phone: MCHC Auto (RBC) [Mass/Vol]on 07-19-2021 MCHC (RBC) [Mass/Vol] 34.4 g/dL 32-36 [facility] Work Phone: Platelets bldon 07-19-2021 Platelets (Bld) [#/Vol] 193 10*3/uL 150-450 [facility] Work Phone: Absolute lymphocyte counton 07-12-2021 Lymphocytes Auto (Unsp spec) [#/Vol] 1.42 10*3/uL 0.83-4.51 [facility] Work Phone: Basophil percentageon 2021 Basophils/100 WBC (Bld) 0.6 % 0-1 [facility] Work Phone: [phone] Eosinophils/100 WBC (Bld) 0.3 % 0-5 [facility] Work Phone: Neutrophils (Bld) [#/Vol] 4.7 10*3/uL 2.0-7.7 [facility] Work Phone: Neutrophils/100 WBC (Bld) 67.3 % 47-70 [facility] Work Phone: WBC (Bld) [#/Vol] 7.0 10*3/uL 4.4-11.0 [facility] Work Phone: Blood erythrocytes count (nu mber/volume)on 07-12-2021 RBC (Bld) [#/Vol] 4.61 10*6/uL 4.6-6.2 [facility] Work Phone: Blood hemoglobin measurement (mass/volume)on 07-12-2021 Hemoglobin (Bld) [Mass/Vol] 14.4 g/dL 13.0-16.5 [facility] Work Phone: Blood lymphocytes/100 leukoc yteson 07-12-2021 Lymphocytes/100 WBC (Bld) 20.4 % 19-41 [facility] Work Phone: [phone] Blood monocytes/100 leukocyt eson 07-12-2021 Monocytes/100 WBC (Bld) 11.1 % 0-10 [facility] Work Phone: Blood platelet mean volumeon 07-12-2021 Platelet mean volume (Bld) [Entitic vol] 11.2 fL 6.2-12.0 [facility] Work Phone: Determination of erythrocyte mean corpuscular volume (MCV)on 07-12-2021 MCV (RBC) [Entitic vol] 91.1 fL 80-94 [facility] Work Phone: Hematocrit Auto (Bld) [Volum e fraction]on 07-12-2021 Hematocrit (Bld) [Volume fraction] 42.0 % 40-54 [facility] Work Phone: Laboratory - Hematology and Cell countson 07-12-2021 Erythrocyte distribution width (RBC) [Entitic vol] 41.4 fL 35.1-43.9 [facility] Work Phone: Erythrocyte distribution width (RBC) [Ratio] 12.6 % 11.6-14.6 [facility] Work Phone: Immature granulocytes/100 WBC (Bld) 0.300 % 0.0-0.9 [facility] Work Phone: Comment on above: IG% - Immature Granu locytes (promyelocytes, myelocytes and metamyelocytes) > 1% indicates that a LEFT SHIFT is Present. MCH (RBC) [Entitic mass] 31.2 pg 27.0-32.0 [facility] Work Phone: Nucleated RBC/100 WBC (Bld) [Ratio] 0 % 0-5 [facility] Work Phone: MCHC Auto (RBC) [Mass/Vol]on 07-12-2021 MCHC (RBC) [Mass/Vol] 34.3 g/dL 32-36 [facility] Work Phone: Platelets bldon 07-12-2021 Platelets (Bld) [#/Vol] 184 10*3/uL 150-450 [facility] Work Phone: Absolute lymphocyte counton 07-05-2021 Lymphocytes Auto (Unsp spec) [#/Vol] 1.55 10*3/uL 0.83-4.51 [facility] Work Phone: Basophil percentageon 2021 Basophils/100 WBC (Bld) 0.4 % 0-1 [facility] Work Phone: Cholesterol [Mass/Vol] 148 mg/dL <200 [facility] Work Phone: Comment on above: <200 mg/dL Desirable 200-240 mg/dL Borderline >240 mg/dL High Risk Eosinophils/100 WBC (Bld) 0.3 % 0-5 [facility] Work Phone: Neutrophils (Bld) [#/Vol] 5.5 10*3/uL 2.0-7.7 [facility] Work Phone: Neutrophils/100 WBC (Bld) 70.9 % 47-70 [facility] Work Phone: Triglyceride [Mass/Vol] 201 mg/dL <199 [facility] Work Phone: Comment on above: The drugs N-Acetylcy steine and Metamizole may falsely depress this assay.Serum Triglycerides Reference Interval Normal <150 mg/dL Borderline high 150 - 199 mg/dL High 200 - 499 mg/dL Very High > or = 500 mg/dL WBC (Bld) [#/Vol] 7.8 10*3/uL 4.4-11.0 [facility] Work Phone: Blood erythrocytes count (nu mber/volume)on 07-05-2021 RBC (Bld) [#/Vol] 4.46 10*6/uL 4.6-6.2 [facility] Work Phone: Blood hemoglobin measurement (mass/volume)on 07-05-2021 Hemoglobin (Bld) [Mass/Vol] 13.4 g/dL 13.0-16.5 [facility] Work Phone: Blood lymphocytes/100 leukoc yteson 07-05-2021 Lymphocytes/100 WBC (Bld) 20.0 % 19-41 [facility] Work Phone: Blood monocytes/100 leukocyt eson 07-05-2021 Monocytes/100 WBC (Bld) 8.1 % 0-10 [facility] Work Phone: Blood platelet mean volumeon 07-05-2021 Platelet mean volume (Bld) [Entitic vol] 11.7 fL 6.2-12.0 [facility] Work Phone: Determination of erythrocyte mean corpuscular volume (MCV)on 07-05-2021 MCV (RBC) [Entitic vol] 91.0 fL 80-94 [facility] Work Phone: Hematocrit Auto (Bld) [Volum e fraction]on 07-05-2021 Hematocrit (Bld) [Volume fraction] 40.6 % 40-54 [facility] Work Phone: Laboratory - Hematology and Cell countson 07-05-2021 Erythrocyte distribution width (RBC) [Entitic vol] 41.9 fL 35.1-43.9 [facility] Work Phone: Erythrocyte distribution width (RBC) [Ratio] 12.8 % 11.6-14.6 [facility] Work Phone: Immature granulocytes/100 WBC (Bld) 0.300 % 0.0-0.9 [facility] Work Phone: Comment on above: IG% - Immature Granu locytes (promyelocytes, myelocytes and metamyelocytes) > 1% indicates that a LEFT SHIFT is Present. MCH (RBC) [Entitic mass] 30.0 pg 27.0-32.0 [facility] Work Phone: Nucleated RBC/100 WBC (Bld) [Ratio] 0 % 0-5 [facility] Work Phone: MCHC Auto (RBC) [Mass/Vol]on 07-05-2021 MCHC (RBC) [Mass/Vol] 33.0 g/dL 32-36 [facility] Work Phone: Platelets bldon 07-05-2021 Platelets (Bld) [#/Vol] 186 10*3/uL 150-450 [facility] Work Phone: Serum or plasma cholesterol in HDL measurement (mass/volume)on 07-05-2021 Cholesterol in HDL [Mass/Vol] 30 mg/dL >40 [facility] Work Phone: [phone] Comment on above: The drugs N-Acetylcy steine and Metamizole may falsely depress this assay. Reference Range HDL <40 mg/dL Low HDL Cholesterol HDL >or= 60 mg/dL High HDL Cholesterol Serum or plasma cholesterol in VLDL measurement (mass/volume)on 07-05-2021 Cholesterol in VLDL [Mass/Vol] 40 mg/dL 5-40 [facility] Work Phone: Serum or plasma low density lipoprotein (LDL) cholesterol measurement (mass/volume)on 07-05-2021 Cholesterol in LDL [Mass/Vol] 78 mg/dL 0-130 [facility] Work Phone: Absolute lymphocyte counton 06-28-2021 Lymphocytes Auto (Unsp spec) [#/Vol] 2.01 10*3/uL 0.83-4.51 [facility] Work Phone: Basophil percentageon 2021 Basophils/100 WBC (Bld) 0.5 % 0-1 [facility] Work Phone: Eosinophils/100 WBC (Bld) 0.3 % 0-5 [facility] Work Phone: Neutrophils (Bld) [#/Vol] 3.3 10*3/uL 2.0-7.7 [facility] Work Phone: Neutrophils/100 WBC (Bld) 55.5 % 47-70 [facility] Work Phone: WBC (Bld) [#/Vol] 6.0 10*3/uL 4.4-11.0 [facility] Work Phone: Blood erythrocytes count (nu mber/volume)on 06-28-2021 RBC (Bld) [#/Vol] 4.32 10*6/uL 4.6-6.2 [facility]: Blood hemoglobin measurement (mass/volume)on 06-28-2021 Hemoglobin (Bld) [Mass/Vol] 13.5 g/dL 13.0-16.5 [facility] Work Phone: Blood lymphocytes/100 leukoc yteson 06-28-2021 Lymphocytes/100 WBC (Bld) 33.5 % 19-41 [facility] Work Phone: Blood monocytes/100 leukocyt eson 06-28-2021 Monocytes/100 WBC (Bld) 10.0 % 0-10 [facility] Work Phone: Blood platelet mean volumeon 06-28-2021 Platelet mean volume (Bld) [Entitic vol] 11.8 fL 6.2-12.0 [facility] Work Phone: Determination of erythrocyte mean corpuscular volume (MCV)on 06-28-2021 MCV (RBC) [Entitic vol] 89.8 fL 80-94 [facility] Work Phone: Hematocrit Auto (Bld) [Volum e fraction]on 06-28-2021 Hematocrit (Bld) [Volume fraction] 38.8 % 40-54 [facility] Work Phone: Laboratory - Hematology and Cell countson 06-28-2021 Erythrocyte distribution width (RBC) [Entitic vol] 40.6 fL 35.1-43.9 [facility] Work Phone: Erythrocyte distribution width (RBC) [Ratio] 12.5 % 11.6-14.6 [facility] Work Phone: Immature granulocytes/100 WBC (Bld) 0.200 % 0.0-0.9 [facility] Work Phone: Comment on above: IG% - Immature Granu locytes (promyelocytes, myelocytes and metamyelocytes) > 1% indicates that a LEFT SHIFT is Present. MCH (RBC) [Entitic mass] 31.3 pg 27.0-32.0 [facility] Work Phone: Nucleated RBC/100 WBC (Bld) [Ratio] 0 % 0-5 [facility] Work Phone: [phone] MCHC Auto (RBC) [Mass/Vol]on 06-28-2021 MCHC (RBC) [Mass/Vol] 34.8 g/dL 32-36 [facility] Work Phone: [phone] Platelets bldon 06-28-2021 Platelets (Bld) [#/Vol] 185 10*3/uL 150-450 [facility] Work Phone: [phone] Absolute lymphocyte counton 06-21-2021 Lymphocytes Auto (Unsp spec) [#/Vol] 1.78 10*3/uL 0.83-4.51 [facility] Work Phone: Basophil percentageon 2021 Basophils/100 WBC (Bld) 0.3 % 0-1 [facility] Work Phone: [phone] Eosinophils/100 WBC (Bld) 0.4 % 0-5 [facility] Work Phone: [phone] Neutrophils (Bld) [#/Vol] 4.2 10*3/uL 2.0-7.7 [facility] Work Phone: [phone] Neutrophils/100 WBC (Bld) 62.7 % 47-70 [facility] Work Phone: [phone] WBC (Bld) [#/Vol] 6.8 10*3/uL 4.4-11.0 [facility]: [phone] Blood erythrocytes count (nu mber/volume)on 06-21-2021 RBC (Bld) [#/Vol] 4.21 10*6/uL 4.6-6.2 [facility] Work Phone: Blood hemoglobin measurement (mass/volume)on 06-21-2021 Hemoglobin (Bld) [Mass/Vol] 13.3 g/dL 13.0-16.5 [facility] Work Phone: Blood lymphocytes/100 leukoc yteson 06-21-2021 Lymphocytes/100 WBC (Bld) 26.3 % 19-41 [facility] Work Phone: Blood monocytes/100 leukocyt eson 06-21-2021 Monocytes/100 WBC (Bld) 9.9 % 0-10 [facility] Work Phone: Blood platelet mean volumeon 06-21-2021 Platelet mean volume (Bld) [Entitic vol] 11.5 fL 6.2-12.0 [facility] Work Phone: Determination of erythrocyte mean corpuscular volume (MCV)on 06-21-2021 MCV (RBC) [Entitic vol] 91.0 fL 80-94 [facility] Work Phone: Hematocrit Auto (Bld) [Volum e fraction]on 06-21-2021 Hematocrit (Bld) [Volume fraction] 38.3 % 40-54 [facility] Work Phone: Laboratory - Hematology and Cell countson 06-21-2021 Erythrocyte distribution width (RBC) [Entitic vol] 40.2 fL 35.1-43.9 [facility] Work Phone: Erythrocyte distribution width (RBC) [Ratio] 12.2 % 11.6-14.6 [facility] Work Phone: Immature granulocytes/100 WBC (Bld) 0.400 % 0.0-0.9 [facility] Work Phone: Comment on above: IG% - Immature Granu locytes (promyelocytes, myelocytes and metamyelocytes) > 1% indicates that a LEFT SHIFT is Present. MCH (RBC) [Entitic mass] 31.6 pg 27.0-32.0 [facility] Work Phone: Nucleated RBC/100 WBC (Bld) [Ratio] 0 % 0-5 [facility] Work Phone: MCHC Auto (RBC) [Mass/Vol]on 06-21-2021 MCHC (RBC) [Mass/Vol] 34.7 g/dL 32-36 [facility] Work Phone: Platelets bldon 06-21-2021 Platelets (Bld) [#/Vol] 217 10*3/uL 150-450 [facility] Work Phone: Absolute lymphocyte counton 06-14-2021 Lymphocytes Auto (Unsp spec) [#/Vol] 1.41 10*3/uL 0.83-4.51 [facility] Work Phone: Basophil percentageon 2021 Basophils/100 WBC (Bld) 0.4 % 0-1 [facility] Work Phone: [phone] Chloride [Moles/Vol] 106 mmol/L 98-107 [facility] Work Phone: [phone] Eosinophils/100 WBC (Bld) 0.6 % 0-5 [facility] Work Phone: [phone] Glucose [Mass/Vol] 121 mg/dL 74-106 [facility] Work Phone: Comment on above: Fasting Glucose resu lt from 100 to 125 mg/dL suggests IMPAIRED HOMEOSTASIS per A.D.A. criteria. Neutrophils (Bld) [#/Vol] 4.8 10*3/uL 2.0-7.7 [facility] Work Phone: [phone] Neutrophils/100 WBC (Bld) 69.9 % 47-70 [facility] Work Phone: [phone] Potassium [Moles/Vol] 3.7 mmol/L 3.5-5.1 [facility] Work Phone: [phone] Sodium [Moles/Vol] 140 mmol/L 136-145 [facility] Work Phone: WBC (Bld) [#/Vol] 6.8 10*3/uL 4.4-11.0 [facility] Work Phone: [phone] Blood erythrocytes count (nu mber/volume)on 06-14-2021 RBC (Bld) [#/Vol] 4.78 10*6/uL 4.6-6.2 [facility] Work Phone: Blood hemoglobin measurement (mass/volume)on 06-14-2021 Hemoglobin (Bld) [Mass/Vol] 14.9 g/dL 13.0-16.5 [facility] Work Phone: Blood lymphocytes/100 leukoc yteson 06-14-2021 Lymphocytes/100 WBC (Bld) 20.8 % 19-41 [facility] Work Phone: Blood monocytes/100 leukocyt eson 06-14-2021 Monocytes/100 WBC (Bld) 7.7 % 0-10 [facility] Work Phone: Blood platelet mean volumeon 06-14-2021 Platelet mean volume (Bld) [Entitic vol] 11.5 fL 6.2-12.0 [facility] Work Phone: Determination of erythrocyte mean corpuscular volume (MCV)on 06-14-2021 MCV (RBC) [Entitic vol] 89.5 fL 80-94 [facility] Work Phone: Hematocrit Auto (Bld) [Volum e fraction]on 06-14-2021 Hematocrit (Bld) [Volume fraction] 42.8 % 40-54 [facility] Work Phone: Laboratory - Chemistry and C hemistry - challengeon 06-14-2021 CO2 [Moles/Vol] 27.0 mmol/L 21.0-32.0 [facility] Work Phone: Urea nitrogen/Creatinine [Mass ratio] 35.0 mg/mg 10-20 [facility] Work Phone: Laboratory - Hematology and Cell countson 06-14-2021 Erythrocyte distribution width (RBC) [Entitic vol] 39.3 fL 35.1-43.9 [facility] Work Phone: Erythrocyte distribution width (RBC) [Ratio] 12.0 % 11.6-14.6 [facility] Work Phone: Immature granulocytes/100 WBC (Bld) 0.600 % 0.0-0.9 [facility] Work Phone: Comment on above: IG% - Immature Granu locytes (promyelocytes, myelocytes and metamyelocytes) > 1% indicates that a LEFT SHIFT is Present. MCH (RBC) [Entitic mass] 31.2 pg 27.0-32.0 [facility] Work Phone: Nucleated RBC/100 WBC (Bld) [Ratio] 0 % 0-5 [facility] Work Phone: MCHC Auto (RBC) [Mass/Vol]on 06-14-2021 MCHC (RBC) [Mass/Vol] 34.8 g/dL 32-36 [facility] Work Phone: No Panel Informationon 06-14 Estimated GFR (MDRD) Amer 185 mL/min >60 [facility] Work Phone: Comment on above: GFR Calc Estimated GFR (MDRD) Non-Af Amer 153 mL/min >60 [facility] Work Phone: Comment on above: Non- GFR Calc Platelets bldon 06-14-2021 Platelets (Bld) [#/Vol] 223 10*3/uL 150-450 [facility] Work Phone: Serum or plasma calcium gordy urement (mass/volume)on 06-14-2021 Calcium [Mass/Vol] 8.0 mg/dL 8.5-10.1 [facility] Work Phone: Serum or plasma creatinine [...] 06-14-2021 Urea nitrogen [Mass/Vol] 20 mg/dL 7-18 [facility] Work Phone: Thin prep Papanicolaou smear with manual screeningon 06-14-2021 Thin prep Papanicolaou smear with manual screening 7 5-15 [facility] Work Phone: Absolute lymphocyte counton 06-07-2021 Lymphocytes Auto (Unsp spec) [#/Vol] 1.38 10*3/uL 0.83-4.51 [facility] Work Phone: Basophil percentageon 2021 Basophils/100 WBC (Bld) 0.2 % 0-1 [facility] Work Phone: Eosinophils/100 WBC (Bld) 0.0 % 0-5 [facility] Work Phone: Neutrophils (Bld) [#/Vol] 7.3 10*3/uL 2.0-7.7 [facility] Work Phone: Neutrophils/100 WBC (Bld) 75.3 % 47-70 [facility] Work Phone: WBC (Bld) [#/Vol] 9.7 10*3/uL 4.4-11.0 [facility] Work Phone: Blood erythrocytes count (nu mber/volume)on 06-07-2021 RBC (Bld) [#/Vol] 4.48 10*6/uL 4.6-6.2 [facility] Work Phone: Blood hemoglobin measurement (mass/volume)on 06-07-2021 Hemoglobin (Bld) [Mass/Vol] 13.8 g/dL 13.0-16.5 [facility] Work Phone: Blood lymphocytes/100 leukoc yteson 06-07-2021 Lymphocytes/100 WBC (Bld) 14.2 % 19-41 [facility] Work Phone: Blood monocytes/100 leukocyt eson 06-07-2021 Monocytes/100 WBC (Bld) 10.2 % 0-10 [facility] Work Phone: Blood platelet mean volumeon 06-07-2021 Platelet mean volume (Bld) [Entitic vol] 11.9 fL 6.2-12.0 [facility] Work Phone: Determination of erythrocyte mean corpuscular volume (MCV)on 06-07-2021 MCV (RBC) [Entitic vol] 92.9 fL 80-94 [facility] Work Phone: Hematocrit Auto (Bld) [Volum e fraction]on 06-07-2021 Hematocrit (Bld) [Volume fraction] 41.6 % 40-54 [facility] Work Phone: Laboratory - Hematology and Cell countson 06-07-2021 Erythrocyte distribution width (RBC) [Entitic vol] 43.8 fL 35.1-43.9 [facility] Work Phone: Erythrocyte distribution width (RBC) [Ratio] 12.8 % 11.6-14.6 [facility] Work Phone: Immature granulocytes/100 WBC (Bld) 0.100 % 0.0-0.9 [facility] Work Phone: Comment on above: IG% - Immature Granu locytes (promyelocytes, myelocytes and metamyelocytes) > 1% indicates that a LEFT SHIFT is Present. MCH (RBC) [Entitic mass] 30.8 pg 27.0-32.0 [facility] Work Phone: Nucleated RBC/100 WBC (Bld) [Ratio] 0 % 0-5 [facility] Work Phone: MCHC Auto (RBC) [Mass/Vol]on 06-07-2021 MCHC (RBC) [Mass/Vol] 33.2 g/dL 32-36 [facility] Work Phone: Platelets bldon 06-07-2021 Platelets (Bld) [#/Vol] 152 10*3/uL 150-450 [facility] Work Phone: Absolute lymphocyte counton 05-31-2021 Lymphocytes Auto (Unsp spec) [#/Vol] 1.72 10*3/uL 0.83-4.51 [facility] Work Phone: Basophil percentageon 2021 Basophils/100 WBC (Bld) 0.7 % 0-1 [facility] Work Phone: Eosinophils/100 WBC (Bld) 1.1 % 0-5 [facility] Work Phone: Neutrophils (Bld) [#/Vol] 3.3 10*3/uL 2.0-7.7 [facility] Work Phone: Neutrophils/100 WBC (Bld) 58.5 % 47-70 [facility] Work Phone: WBC (Bld) [#/Vol] 5.6 10*3/uL 4.4-11.0 [facility] Work [facility]: Blood erythrocytes count (nu mber/volume)on 05-31-2021 RBC (Bld) [#/Vol] 4.44 10*6/uL 4.6-6.2 [facility] Work Phone: Blood hemoglobin measurement (mass/volume)on 05-31-2021 Hemoglobin (Bld) [Mass/Vol] 13.6 g/dL 13.0-16.5 [facility] Work Phone: Blood lymphocytes/100 leukoc yteson 05-31-2021 Lymphocytes/100 WBC (Bld) 30.7 % 19-41 [facility] Work Phone: Blood monocytes/100 leukocyt eson 05-31-2021 Monocytes/100 WBC (Bld) 8.6 % 0-10 [facility] Work Phone: Blood platelet mean volumeon 05-31-2021 Platelet mean volume (Bld) [Entitic vol] 11.2 fL 6.2-12.0 [facility] Work Phone: [phone] Determination of erythrocyte mean corpuscular volume (MCV)on 05-31-2021 MCV (RBC) [Entitic vol] 92.1 fL 80-94 [facility] Work Phone: Hematocrit Auto (Bld) [Volum e fraction]on 05-31-2021 Hematocrit (Bld) [Volume fraction] 40.9 % 40-54 [facility] Work Phone: Laboratory - Hematology and Cell countson 05-31-2021 Erythrocyte distribution width (RBC) [Entitic vol] 42.2 fL 35.1-43.9 [facility] Work Phone: Erythrocyte distribution width (RBC) [Ratio] 12.4 % 11.6-14.6 [facility] Work Phone: Immature granulocytes/100 WBC (Bld) 0.400 % 0.0-0.9 [facility] Work Phone: Comment on above: IG% - Immature Granu locytes (promyelocytes, myelocytes and metamyelocytes) > 1% indicates that a LEFT SHIFT is Present. MCH (RBC) [Entitic mass] 30.6 pg 27.0-32.0 [facility] Work Phone: Nucleated RBC/100 WBC (Bld) [Ratio] 0 % 0-5 [facility] Work Phone: MCHC Auto (RBC) [Mass/Vol]on 05-31-2021 MCHC (RBC) [Mass/Vol] 33.3 g/dL 32-36 [facility] Work Phone: Platelets bldon 05-31-2021 Platelets (Bld) [#/Vol] 189 10*3/uL 150-450 [facility] Work Phone: Absolute lymphocyte counton 05-24-2021 Lymphocytes Auto (Unsp spec) [#/Vol] 1.58 10*3/uL 0.83-4.51 [facility] Work Phone: [phone] Basophil percentageon 2021 Basophils/100 WBC (Bld) 0.8 % 0-1 [facility] Work Phone: Eosinophils/100 WBC (Bld) 2.4 % 0-5 [facility] Work Phone: Neutrophils (Bld) [#/Vol] 3.8 10*3/uL 2.0-7.7 [facility] Work Phone: [phone] Neutrophils/100 WBC (Bld) 60.3 % 47-70 [facility] Work Phone: WBC (Bld) [#/Vol] 6.3 10*3/uL 4.4-11.0 [facility] Work Phone: Blood erythrocytes count (nu mber/volume)on 05-24-2021 RBC (Bld) [#/Vol] 4.50 10*6/uL 4.6-6.2 [facility] Work Phone: Blood hemoglobin measurement (mass/volume)on 05-24-2021 Hemoglobin (Bld) [Mass/Vol] 13.7 g/dL 13.0-16.5 [facility] Work Phone: Blood lymphocytes/100 leukoc yteson 05-24-2021 Lymphocytes/100 WBC (Bld) 25.0 % 19-41 [facility] Work Phone: Blood monocytes/100 leukocyt eson 05-24-2021 Monocytes/100 WBC (Bld) 11.2 % 0-10 [facility] Work Phone: Blood platelet mean volumeon 05-24-2021 Platelet mean volume (Bld) [Entitic vol] 11.3 fL 6.2-12.0 [facility] Work Phone: Determination of erythrocyte mean corpuscular volume (MCV)on 05-24-2021 MCV (RBC) [Entitic vol] 92.9 fL 80-94 [facility] Work Phone: Hematocrit Auto (Bld) [Volum e fraction]on 05-24-2021 Hematocrit (Bld) [Volume fraction] 41.8 % 40-54 [facility] Work Phone: Laboratory - Hematology and Cell countson 05-24-2021 Erythrocyte distribution width (RBC) [Entitic vol] 42.8 fL 35.1-43.9 [facility] Work Phone: Erythrocyte distribution width (RBC) [Ratio] 12.6 % 11.6-14.6 [facility] Work Phone: Immature granulocytes/100 WBC (Bld) 0.300 % 0.0-0.9 [facility] Work Phone: Comment on above: IG% - Immature Granu locytes (promyelocytes, myelocytes and metamyelocytes) > 1% indicates that a LEFT SHIFT is Present. MCH (RBC) [Entitic mass] 30.4 pg 27.0-32.0 [facility] Work Phone: Nucleated RBC/100 WBC (Bld) [Ratio] 0 % 0-5 [facility] Work Phone: [phone] MCHC Auto (RBC) [Mass/Vol]on 05-24-2021 MCHC (RBC) [Mass/Vol] 32.8 g/dL 32-36 [facility] Work Phone: Platelets bldon 05-24-2021 Platelets (Bld) [#/Vol] 207 10*3/uL 150-450 [facility] Work Phone: Absolute lymphocyte counton 05-17-2021 Lymphocytes Auto (Unsp spec) [#/Vol] 1.59 10*3/uL 0.83-4.51 [facility] Work Phone: Basophil percentageon 2021 Basophils/100 WBC (Bld) 0.7 % 0-1 [facility] Work Phone: Eosinophils/100 WBC (Bld) 1.7 % 0-5 [facility] Work Phone: Neutrophils (Bld) [#/Vol] 3.5 10*3/uL 2.0-7.7 [facility] Work Phone: Neutrophils/100 WBC (Bld) 59.5 % 47-70 [facility] Work Phone: WBC (Bld) [#/Vol] 5.9 10*3/uL 4.4-11.0 [facility] Work Phone: Blood erythrocytes count (nu mber/volume)on 05-17-2021 RBC (Bld) [#/Vol] 4.35 10*6/uL 4.6-6.2 [facility] Work Phone: Blood hemoglobin measurement (mass/volume)on 05-17-2021 Hemoglobin (Bld) [Mass/Vol] 13.4 g/dL 13.0-16.5 [facility] Work Phone: Blood lymphocytes/100 leukoc yteson 05-17-2021 Lymphocytes/100 WBC (Bld) 26.9 % 19-41 [facility] Work Phone: Blood monocytes/100 leukocyt eson 05-17-2021 Monocytes/100 WBC (Bld) 11.0 % 0-10 [facility] Work Phone: Blood platelet mean volumeon 05-17-2021 Platelet mean volume (Bld) [Entitic vol] 11.5 fL 6.2-12.0 [facility] Work Phone: Determination of erythrocyte mean corpuscular volume (MCV)on 05-17-2021 MCV (RBC) [Entitic vol] 92.9 fL 80-94 [facility] Work Phone: Hematocrit Auto (Bld) [Volum e fraction]on 05-17-2021 Hematocrit (Bld) [Volume fraction] 40.4 % 40-54 [facility] Work Phone: Laboratory - Hematology and Cell countson 05-17-2021 Erythrocyte distribution width (RBC) [Entitic vol] 43.4 fL 35.1-43.9 [facility] Work Phone: Erythrocyte distribution width (RBC) [Ratio] 12.7 % 11.6-14.6 [facility] Work Phone: Immature granulocytes/100 WBC (Bld) 0.200 % 0.0-0.9 [facility] Work Phone: Comment on above: IG% - Immature Granu locytes (promyelocytes, myelocytes and metamyelocytes) > 1% indicates that a LEFT SHIFT is Present. MCH (RBC) [Entitic mass] 30.8 pg 27.0-32.0 [facility] Work Phone: Nucleated RBC/100 WBC (Bld) [Ratio] 0 % 0-5 [facility] Work Phone: MCHC Auto (RBC) [Mass/Vol]on 05-17-2021 MCHC (RBC) [Mass/Vol] 33.2 g/dL 32-36 [facility] Work Phone: Platelets bldon 05-17-2021 Platelets (Bld) [#/Vol] 171 10*3/uL 150-450 [facility] Work Phone: ED Provider Noteon 2 ED Provider Note Emergency Department Encounter [facility] ED Patient: Kathya Hooper : 1955 [...] [employer] Timothy Burton DO 05/15/21 1530 Normal [facility] ED [facility] eMERGENCY dEPARTMENT eNCOUnter Pt Name: Kathya [...] (more content not included)... Normal [facility] Basophil percentageon 2021 Chloride [Moles/Vol] 105 mmol/L 98-107 [facility] Work Phone: Glucose [Mass/Vol] 96 mg/dL 74-106 [facility] Work Phone: Potassium [Moles/Vol] 3.5 mmol/L 3.5-5.1 [facility] Work Phone: Sodium [Moles/Vol] 141 mmol/L 136-145 [facility] Work Phone: Laboratory - Chemistry and C hemistry - challengeon 05-14-2021 CO2 [Moles/Vol] 30.0 mmol/L 21.0-32.0 [facility] Work Phone: Urea nitrogen/Creatinine [Mass ratio] 39.2 mg/mg 10-20 [facility] Work Phone: No Panel Informationon 05-14 Estimated GFR (MDRD) Amer 210 mL/min >60 [facility] Work Phone: Comment on above: GFR Calc Estimated GFR (MDRD) Non-Af Amer 174 mL/min >60 [facility] Work Phone: Comment on above: Non- GFR Calc Serum or plasma calcium gordy urement (mass/volume)on 05-14-2021 Calcium [Mass/Vol] 8.4 mg/dL 8.5-10.1 [facility] Work Phone: Serum or plasma creatinine [...] 05-14-2021 Urea nitrogen [Mass/Vol] 20 mg/dL 7-18 [facility] Work Phone: Thin prep Papanicolaou smear with manual screeningon 05-14-2021 Thin prep Papanicolaou smear with manual screening 6 5-15 [facility] Work Phone: Absolute lymphocyte counton 05-10-2021 Lymphocytes Auto (Unsp spec) [#/Vol] 1.65 10*3/uL 0.83-4.51 [facility] Work Phone: Basophil percentageon 2021 Basophils/100 WBC (Bld) 0.5 % 0-1 [facility] Work Phone: Eosinophils/100 WBC (Bld) 0.7 % 0-5 [facility] Work Phone: Neutrophils (Bld) [#/Vol] 5.6 10*3/uL 2.0-7.7 [facility] Work Phone: Neutrophils/100 WBC (Bld) 69.5 % 47-70 [facility] Work Phone: WBC (Bld) [#/Vol] 8.1 10*3/uL 4.4-11.0 [facility] Work Phone: Blood erythrocytes count (nu mber/volume)on 05-10-2021 RBC (Bld) [#/Vol] 4.52 10*6/uL 4.6-6.2 [facility]: Blood hemoglobin measurement (mass/volume)on 05-10-2021 Hemoglobin (Bld) [Mass/Vol] 13.8 g/dL 13.0-16.5 [facility] Work Phone: Blood lymphocytes/100 leukoc yteson 05-10-2021 Lymphocytes/100 WBC (Bld) 20.4 % 19-41 [facility] Work Phone: Blood monocytes/100 leukocyt eson 05-10-2021 Monocytes/100 WBC (Bld) 8.4 % 0-10 [facility] Work Phone: Blood platelet mean volumeon 05-10-2021 Platelet mean volume (Bld) [Entitic vol] 11.3 fL 6.2-12.0 [facility] Work Phone: Determination of erythrocyte mean corpuscular volume (MCV)on 05-10-2021 MCV (RBC) [Entitic vol] 91.8 fL 80-94 [facility] Work Phone: Hematocrit Auto (Bld) [Volum e fraction]on 05-10-2021 Hematocrit (Bld) [Volume fraction] 41.5 % 40-54 [facility] Work Phone: Laboratory - Hematology and Cell countson 05-10-2021 Erythrocyte distribution width (RBC) [Entitic vol] 42.9 fL 35.1-43.9 [facility] Work Phone: Erythrocyte distribution width (RBC) [Ratio] 12.8 % 11.6-14.6 [facility] Work Phone: Immature granulocytes/100 WBC (Bld) 0.500 % 0.0-0.9 [facility] Work Phone: Comment on above: IG% - Immature Granu locytes (promyelocytes, myelocytes and metamyelocytes) > 1% indicates that a LEFT SHIFT is Present. MCH (RBC) [Entitic mass] 30.5 pg 27.0-32.0 [facility] Work Phone: [phone] Nucleated RBC/100 WBC (Bld) [Ratio] 0 % 0-5 [facility] Work Phone: [phone] MCHC Auto (RBC) [Mass/Vol]on 05-10-2021 MCHC (RBC) [Mass/Vol] 33.3 g/dL 32-36 [facility] [place] Work Phone: [phone] Platelets bldon 05-10-2021 Platelets (Bld) [#/Vol] 191 10*3/uL 150-450 [facility] Work Phone: [phone] Absolute lymphocyte counton 05-03-2021 Lymphocytes Auto (Unsp spec) [#/Vol] 1.69 10*3/uL 0.83-4.51 [facility] Work Phone: [phone] Basophil percentageon 2021 Basophils/100 WBC (Bld) 0.6 % 0-1 [facility] Work Phone: Eosinophils/100 WBC (Bld) 0.7 % 0-5 [facility] Work Phone: [phone] Neutrophils (Bld) [#/Vol] 4.6 10*3/uL 2.0-7.7 [facility] Work Phone: [phone] Neutrophils/100 WBC (Bld) 64.4 % 47-70 [facility] Work Phone: [phone] WBC (Bld) [#/Vol] 7.2 10*3/uL 4.4-11.0 [facility] Work Phone: [phone] Blood erythrocytes count (nu mber/volume)on 05-03-2021 RBC (Bld) [#/Vol] 4.55 10*6/uL 4.6-6.2 [facility] Work Phone: [phone] Blood hemoglobin measurement (mass/volume)on 05-03-2021 Hemoglobin (Bld) [Mass/Vol] 14.0 g/dL 13.0-16.5 [facility] Work Phone: Blood lymphocytes/100 leukoc yteson 05-03-2021 Lymphocytes/100 WBC (Bld) 23.6 % 19-41 [facility] Work Phone: Blood monocytes/100 leukocyt eson 05-03-2021 Monocytes/100 WBC (Bld) 10.3 % 0-10 [facility] Work Phone: Blood platelet mean volumeon 05-03-2021 Platelet mean volume (Bld) [Entitic vol] 11.7 fL 6.2-12.0 [facility] Work Phone: Determination of erythrocyte mean corpuscular volume (MCV)on 05-03-2021 MCV (RBC) [Entitic vol] 93.2 fL 80-94 [facility] Work Phone: Hematocrit Auto (Bld) [Volum e fraction]on 05-03-2021 Hematocrit (Bld) [Volume fraction] 42.4 % 40-54 [facility] Work Phone: Laboratory - Hematology and Cell countson 05-03-2021 Erythrocyte distribution width (RBC) [Entitic vol] 44.2 fL 35.1-43.9 [facility] Work Phone: Erythrocyte distribution width (RBC) [Ratio] 13.1 % 11.6-14.6 [facility] Work Phone: Immature granulocytes/100 WBC (Bld) 0.400 % 0.0-0.9 [facility] Work Phone: Comment on above: IG% - Immature Granu locytes (promyelocytes, myelocytes and metamyelocytes) > 1% indicates that a LEFT SHIFT is Present. MCH (RBC) [Entitic mass] 30.8 pg 27.0-32.0 [facility] Work Phone: Nucleated RBC/100 WBC (Bld) [Ratio] 0 % 0-5 [facility] Work Phone: MCHC Auto (RBC) [Mass/Vol]on 05-03-2021 MCHC (RBC) [Mass/Vol] 33.0 g/dL 32-36 [facility] [place] Work Phone: Platelets bldon 05-03-2021 Platelets (Bld) [#/Vol] 175 10*3/uL 150-450 [facility] Work Phone: Absolute lymphocyte counton 04-26-2021 Lymphocytes Auto (Unsp spec) [#/Vol] 1.68 10*3/uL 0.83-4.51 [facility] Work Phone: Basophil percentageon 2020 Eosinophils/100 WBC (Bld) 1.1 % 0-5 [facility] Work Phone: Neutrophils (Bld) [#/Vol] 4.5 10*3/uL 2.0-7.7 [facility] Work Phone: WBC (Bld) [#/Vol] 7.2 10*3/uL 4.4-11.0 [facility] Work Phone: Blood erythrocytes count (nu mber/volume)on 04-26-2021 RBC (Bld) [#/Vol] 4.32 10*6/uL 4.6-6.2 [facility] Work Phone: Blood hemoglobin measurement (mass/volume)on 04-26-2021 Hemoglobin (Bld) [Mass/Vol] 13.5 g/dL 13.0-16.5 [facility] Work Phone: Blood lymphocytes/100 leukoc yteson 04-26-2021 Lymphocytes/100 WBC (Bld) 23.5 % 19-41 [facility] Work Phone: [phone] Blood monocytes/100 leukocyt eson 04-26-2021 Monocytes/100 WBC (Bld) 11.0 % 0-10 [facility] Work Phone: Blood platelet mean volumeon 04-26-2021 Platelet mean volume (Bld) [Entitic vol] 11.0 fL 6.2-12.0 [facility] Work Phone: Determination of erythrocyte mean corpuscular volume (MCV)on 04-26-2021 MCV (RBC) [Entitic vol] 93.3 fL 80-94 [facility] Work Phone: Hematocrit Auto (Bld) [Volum e fraction]on 04-26-2021 Hematocrit (Bld) [Volume fraction] 40.3 % 40-54 [facility] Work Phone: Laboratory - Hematology and Cell countson 04-26-2021 Basophils/100 WBC (Unsp spec) 0.6 % 0-1 [facility] Work Phone: Erythrocyte distribution width (RBC) [Entitic vol] 45.8 fL 35.1-43.9 [facility] Work Phone: Erythrocyte distribution width (RBC) [Ratio] 13.2 % 11.6-14.6 [facility] Work Phone: Immature granulocytes/100 WBC (Bld) 0.600 % 0.0-0.9 [facility] Work Phone: Comment on above: IG% - Immature Granu locytes (promyelocytes, myelocytes and metamyelocytes) > 1% indicates that a LEFT SHIFT is Present. MCH (RBC) [Entitic mass] 31.3 pg 27.0-32.0 [facility] Work Phone: Neutrophils/100 WBC (Bld) 63.2 % 47-70 [facility] Work Phone: Nucleated RBC/100 WBC (Bld) [Ratio] 0 % 0-5 [facility] Work Phone: MCHC Auto (RBC) [Mass/Vol]on 04-26-2021 MCHC (RBC) [Mass/Vol] 33.5 g/dL 32-36 [facility] Work Phone: [phone] Platelets bldon 04-26-2021 Platelets (Bld) [#/Vol] 172 10*3/uL 150-450 [facility] Work Phone: Absolute lymphocyte counton 04-19-2021 Lymphocytes Auto (Unsp spec) [#/Vol] 1.31 10*3/uL 0.83-4.51 [facility] Work Phone: Basophil percentageon 2020 Eosinophils/100 WBC (Bld) 2.8 % 0-5 [facility] Work Phone: Neutrophils (Bld) [#/Vol] 3.0 10*3/uL 2.0-7.7 [facility] Work Phone: WBC (Bld) [#/Vol] 5.0 10*3/uL 4.4-11.0 [facility] Work Phone: Blood erythrocytes count (nu mber/volume)on 04-19-2021 RBC (Bld) [#/Vol] 4.26 10*6/uL 4.6-6.2 [facility] Work Phone: Blood hemoglobin measurement (mass/volume)on 04-19-2021 Hemoglobin (Bld) [Mass/Vol] 13.2 g/dL 13.0-16.5 [facility] Work Phone: Blood lymphocytes/100 leukoc yteson 04-19-2021 Lymphocytes/100 WBC (Bld) 26.1 % 19-41 [facility] Work Phone: Blood monocytes/100 leukocyt eson 04-19-2021 Monocytes/100 WBC (Bld) 10.0 % 0-10 [facility] Work Phone: [phone] Blood platelet mean volumeon 04-19-2021 Platelet mean volume (Bld) [Entitic vol] 10.9 fL 6.2-12.0 [facility] Work Phone: Determination of erythrocyte mean corpuscular volume (MCV)on 04-19-2021 MCV (RBC) [Entitic vol] 93.7 fL 80-94 [facility] Work Phone: Hematocrit Auto (Bld) [Volum e fraction]on 04-19-2021 Hematocrit (Bld) [Volume fraction] 39.9 % 40-54 [facility] Work Phone: Laboratory - Hematology and Cell countson 04-19-2021 Basophils/100 WBC (Unsp spec) 1.0 % 0-1 [facility] Work Phone: [phone] Erythrocyte distribution width (RBC) [Entitic vol] 46.7 fL 35.1-43.9 [facility] Work Phone: Erythrocyte distribution width (RBC) [Ratio] 13.7 % 11.6-14.6 [facility] Work Phone: [phone] Immature granulocytes/100 WBC (Bld) 0.400 % 0.0-0.9 [facility] Work Phone: [phone] Comment on above: IG% - Immature Granu locytes (promyelocytes, myelocytes and metamyelocytes) > 1% indicates that a LEFT SHIFT is Present. MCH (RBC) [Entitic mass] 31.0 pg 27.0-32.0 [facility] Work Phone: Neutrophils/100 WBC (Bld) 59.7 % 47-70 [facility] Work Phone: Nucleated RBC/100 WBC (Bld) [Ratio] 0 % 0-5 [facility] Work Phone: MCHC Auto (RBC) [Mass/Vol]on 04-19-2021 MCHC (RBC) [Mass/Vol] 33.1 g/dL 32-36 [facility] [place] Work Phone: [phone] Platelets bldon 04-19-2021 Platelets (Bld) [#/Vol] 165 10*3/uL 150-450 [facility] Work Phone: [phone] Absolute lymphocyte counton 04-12-2021 Lymphocytes Auto (Unsp spec) [#/Vol] 1.41 10*3/uL 0.83-4.51 [facility] Work Phone: [phone] Basophil percentageon 2020 Bilirubin [Mass/Vol] 0.40 mg/dL 0.20-1.00 [facility] Work Phone: Comment on above: For patients on eltr ombopag therapy, use of Dimension [place] TBIL is not recommended. Eosinophils/100 WBC (Bld) 0.9 % 0-5 [facility] Work Phone: Neutrophils (Bld) [#/Vol] 3.4 10*3/uL 2.0-7.7 [facility] Work Phone: Protein [Mass/Vol] 5.7 g/dL 6.4-8.2 [facility] Work Phone: WBC (Bld) [#/Vol] 5.5 10*3/uL 4.4-11.0 [facility] Work Phone: Blood erythrocytes count (nu mber/volume)on 04-12-2021 RBC (Bld) [#/Vol] 4.09 10*6/uL 4.6-6.2 [facility] Work Phone: Blood hemoglobin measurement (mass/volume)on 04-12-2021 Hemoglobin (Bld) [Mass/Vol] 12.4 g/dL 13.0-16.5 [facility] Work Phone: Blood lymphocytes/100 leukoc yteson 04-12-2021 Lymphocytes/100 WBC (Bld) 25.9 % 19-41 [facility] Work Phone: Blood monocytes/100 leukocyt eson 04-12-2021 Monocytes/100 WBC (Bld) 9.2 % 0-10 [facility] Work Phone: Blood platelet mean volumeon 04-12-2021 Platelet mean volume (Bld) [Entitic vol] 11.1 fL 6.2-12.0 [facility] Work Phone: Determination of erythrocyte mean corpuscular volume (MCV)on 04-12-2021 MCV (RBC) [Entitic vol] 93.4 fL 80-94 [facility] Work Phone: Direct bilirubinon Bilirubin.direct [Mass/Vol] 0.08 mg/dL 0.00-0.30 [facility] Work Phone: [phone] Hematocrit Auto (Bld) [Volum e fraction]on 04-12-2021 Hematocrit (Bld) [Volume fraction] 38.2 % 40-54 [facility] Work Phone: Laboratory - Chemistry and C hemistry - challengeon 04-12-2021 ALP [Catalytic activity/Vol] 101 U/L 45-117 [facility] Work Phone: [phone] ALT [Catalytic activity/Vol] 30 U/L 16-61 [facility] Work Phone: [phone] Globulin (S) [Mass/Vol] 2.9 g/dL 2.2-4.2 [facility] Work Phone: [phone] Laboratory - Hematology and Cell countson 04-12-2021 Basophils/100 WBC (Unsp spec) 0.6 % 0-1 [facility] Work Phone: [phone] Erythrocyte distribution width (RBC) [Entitic vol] 46.7 fL 35.1-43.9 [facility] Work Phone: [phone] Erythrocyte distribution width (RBC) [Ratio] 13.7 % 11.6-14.6 [facility] Work Phone: [phone] Immature granulocytes/100 WBC (Bld) 0.400 % 0.0-0.9 [facility] Work Phone: [phone] Comment on above: IG% - Immature Granu locytes (promyelocytes, myelocytes and metamyelocytes) > 1% indicates that a LEFT SHIFT is Present. MCH (RBC) [Entitic mass] 30.3 pg 27.0-32.0 [facility] Work Phone: [phone] Neutrophils/100 WBC (Bld) 63.0 % 47-70 [facility] Work Phone: [phone] Nucleated RBC/100 WBC (Bld) [Ratio] 0 % 0-5 [facility] Work Phone: [phone] MCHC Auto (RBC) [Mass/Vol]on 04-12-2021 MCHC (RBC) [Mass/Vol] 32.5 g/dL 32-36 [facility] Work Phone: Platelets bldon 04-12-2021 Platelets (Bld) [#/Vol] 173 10*3/uL 150-450 [facility] Work Phone: Serum or plasma albumin gordy urement (mass/volume)on 04-12-2021 Albumin [Mass/Vol] 2.8 g/dL 3.2-5.0 [facility] Work Phone: Thin prep Papanicolaou smear with manual screeningon 04-12-2021 Thin prep Papanicolaou smear with manual screening 15 U/L 15-37 [facility] Work Phone: Absolute lymphocyte counton 04-07-2021 Lymphocytes Auto (Unsp spec) [#/Vol] 1.55 10*3/uL 0.83-4.51 [facility] Work Phone: Basophil percentageon 2020 Eosinophils/100 WBC (Bld) 0.7 % 0-5 [facility] Work Phone: Neutrophils (Bld) [#/Vol] 5.3 10*3/uL 2.0-7.7 [facility] Work Phone: WBC (Bld) [#/Vol] 8.1 10*3/uL 4.4-11.0 [facility] Work Phone: Blood erythrocytes count (nu mber/volume)on 04-07-2021 RBC (Bld) [#/Vol] 4.18 10*6/uL 4.6-6.2 [facility] Work Phone: Blood hemoglobin measurement (mass/volume)on 04-07-2021 Hemoglobin (Bld) [Mass/Vol] 12.9 g/dL 13.0-16.5 [facility] Work Phone: Blood lymphocytes/100 leukoc yteson 04-07-2021 Lymphocytes/100 WBC (Bld) 19.2 % 19-41 [facility] Work Phone: Blood monocytes/100 leukocyt eson 04-07-2021 Monocytes/100 WBC (Bld) 13.0 % 0-10 [facility] Work Phone: Blood platelet mean volumeon 04-07-2021 Platelet mean volume (Bld) [Entitic vol] 10.9 fL 6.2-12.0 [facility] Work Phone: Determination of erythrocyte mean corpuscular volume (MCV)on 04-07-2021 MCV (RBC) [Entitic vol] 92.6 fL 80-94 [facility] Work Phone: Hematocrit Auto (Bld) [Volum e fraction]on 04-07-2021 Hematocrit (Bld) [Volume fraction] 38.7 % 40-54 [facility] Work Phone: Laboratory - Hematology and Cell countson 04-07-2021 Basophils/100 WBC (Unsp spec) 0.6 % 0-1 [facility] Work Phone: Erythrocyte distribution width (RBC) [Entitic vol] 45.8 fL 35.1-43.9 [facility] Work Phone: Erythrocyte distribution width (RBC) [Ratio] 13.5 % 11.6-14.6 [facility] Work Phone: Immature granulocytes/100 WBC (Bld) 0.500 % 0.0-0.9 [facility] Work Phone: Comment on above: IG% - Immature Granu locytes (promyelocytes, myelocytes and metamyelocytes) > 1% indicates that a LEFT SHIFT is Present. MCH (RBC) [Entitic mass] 30.9 pg 27.0-32.0 [facility] Work Phone: Neutrophils/100 WBC (Bld) 66.0 % 47-70 [facility] Work Phone: Nucleated RBC/100 WBC (Bld) [Ratio] 0 % 0-5 [facility] Work Phone: MCHC Auto (RBC) [Mass/Vol]on 04-07-2021 MCHC (RBC) [Mass/Vol] 33.3 g/dL 32-36 [facility] Work Phone: Platelets bldon 04-07-2021 Platelets (Bld) [#/Vol] 210 10*3/uL 150-450 [facility] Work Phone: CULTURE BLOODon 03-25-2021 Microscopic examination of blood, culture CULTURE BLOOD --> Status: F No growth at 5 days. Normal [facility] Comment on above: Performed By: #### C /BLD ####[facility] [place], [place] CULTURE BLOOD (Two)on 2020 Microscopic examination of blood, culture CULTURE BLOOD (Two) --> Status: F No growth at 5 days. Normal [facility] Comment on above: Performed By: #### C /BLT ####[facility] [id number] [place], [place] Basic Metabolic Panelon 2 Calcium [Mass/Vol] 8.8 mg/dL Normal 8.4-10.4 [facility] Comment on above: Performed By: #### H EMDF, BMP3 #### [facility] [address] [place] [address] Glucose [Mass/Vol] 103 mg/dL High 70-100 [facility] Comment on above: Performed By: #### H EMDF, BMP3 #### [facility] [address] [place] [address] Anion gap [Moles/Vol] 5 mmol/L Normal 3-13 [facility] Comment on above: Performed By: #### H EMDF, BMP3 #### [facility] [address] [place] [address] CO2 [Moles/Vol] 26 mmol/L Normal 22-30 [facility] Comment on above: Performed By: #### H EMDF, BMP3 #### [facility] [address] [place] [address] Creatinine [Mass/Vol] 0.49 mg/dL Low 0.52-1.25 [facility] Comment on above: Performed By: #### H KORIN BRAR3 #### [facility] [address] [place] [address] eGFR OTHER > 90.0 Normal >60 [facility] Comment on above: Result Comment: KDIG [...] secretion. Performed By: #### KORIN BLANCAS3 #### [facility] [address] [place] [address] GFR/1.73 sq M.predicted among blacks MDRD (S/P/Bld) [Vol rate/Area] mL/min/{1.73_m2} Normal >60 [facility] Comment on above: Performed By: #### KORIN BLANCAS3 #### [facility] [address] [place] [address] Urea nitrogen [Mass/Vol] 30 mg/dL High 7-17 [facility] Comment on above: Performed By: #### H KORIN BRAR3 #### [facility] [address] [place] [address] Chloride [Moles/Vol] 112 mmol/L High 98-107 [facility] Comment on above: Performed By: #### KORIN BLANCAS3 #### [facility] [address] [place] [address] Potassium [Moles/Vol] 4.1 mmol/L Normal 3.5-5.1 [facility] Comment on above: Performed By: #### H KORIN BRAR3 #### [facility] [address] [place] [address] Sodium [Moles/Vol] 142 mmol/L Normal 135-145 [facility] Comment on above: Performed By: #### H MAYKEL, BMP3 #### [facility] [address] [place] [address] Anion gap [Moles/Vol] 5 mmol/L 3 - 13 mmol/L [facility] Work Phone: Calcium [Mass/Vol] 8.8 mg/dL 8.4 - 10. 4 mg/dL [facility] Work Phone: Chloride [Moles/Vol] 112 mmol/L High 98 - 10 7 mmol/L [facility] Work Phone: CO2 [Moles/Vol] 26 mmol/L 22 - 30 mmol/L [facility] Work Phone: Creatinine [Mass/Vol] 0.49 mg/dL Low 0.52 - 1.25 mg/dL [facility] Work Phone: EGFR IF NonAfrican Algerian >90.0 >60 mL/min [facility] Work Phone: Comment on above: KDIGO guidelines [...] (S/P/Bld) [Vol rate/Area] mL/min/{1.73_m2} >60 mL/min [facility] Work Phone: Glucose [Mass/Vol] 103 mg/dL High 70 - 100 mg/dL [facility] Work Phone: Interpretation and review of laboratory results Abnormal [facility] Work Phone: Potassium [Moles/Vol] 4.1 mmol/L 3.5 - 5.1 mmol/L [facility] Work Phone: Sodium [Moles/Vol] 142 mmol/L 135 - 145 mmol/L [facility] Work Phone: Urea nitrogen (BldV) [Mass/Vol] 30 mg/dL High 7 - 17 mg/dL [facility] Work Phone: Test Performed by [facility] [id number] [place] [address] LAB [facility] Work Phone: CBC Auto Differentialon 11-2 Hematocrit (Bld) [Volume fraction] 35.0 % Low 40.0 - 52.0 % [facility] Work Phone: Hemoglobin.gastrointest inal spec 1 Ql (Stl) 11.7 g/dL Low 13.0 - 18.0 g/dL [facility] Work Phone: Interpretation and review of laboratory results Abnormal [facility] Work Phone: MCH (RBC) [Entitic mass] 31.0 pg 26.0 - 34.0 pg [facility] Work Phone: MCHC (RBC) [Mass/Vol] 33.4 % 32.0 - 36.0 % [facility] Work Phone: MCV (RBC) [Entitic vol] 92.7 fL 80.0 - 98.0 fL [facility] Work Phone: Platelet distribution width (Bld) [Ratio] 13.4 % 11.5 - 14.5 % [facility] Work Phone: Platelet mean volume (Bld) [Entitic vol] 8.6 fL 7.4 - 10.4 fL [facility] Work Phone: Platelets (Bld) [#/Vol] 236 10*3/uL 140 - 440 10*3/uL [facility] Work Phone: RBC (Bld) [#/Vol] 3.77 10*6/uL Low 4.40 - 5.9 0 10*6/uL [facility] Work Phone: WBC (Bld) [#/Vol] 12.8 10*3/uL High 3.6 - 10.7 10*3/uL [employer] Work Phone: [facility], [address] [place], [place] [id number] [place] [address] LAB [facility] Work Phone: Glucose,Bedsideon 03-24-2021 Glucose [Mass/Vol] 93 mg/dL Normal 70-100 [facility] Comment on above: Result Comment: Test performed by glucose meter. Results may be 10%-15% lower than serum/plasma values. (CLIA ID [id number]) Performed By: #### H KORIN BRAR3 #### [facility] [address] [place] [address] Glucose [Mass/Vol] 166 mg/dL High 70-100 [facility] Comment on above: Result Comment: Test performed by glucose meter. Results may be 10%-15% lower than serum/plasma values. (CLIA ID [id number]) Performed By: #### B GLU ####[facility] [place] [address] Hemogram w/ Autodiffon 03-24 Erythrocyte distribution width (RBC) [Ratio] 13.4 % Normal 11.5-14.5 [facility] Comment on above: Performed By: #### H ALCIRAF, BMP3 #### [facility] [address] [place] [address] Hematocrit (Bld) [Volume fraction] 35.0 % Low 40.0-52.0 [facility] Comment on above: Performed By: #### H EMDF, BMP3 #### [facility] [address] [place] [address] Hemoglobin (Bld) [Mass/Vol] 11.7 g/dL Low 13.0-18.0 [facility] Comment on above: Performed By: #### H EMDF, BMP3 #### [facility] [address] [place] [address] MCH (RBC) [Entitic mass] 31.0 pg Normal 26.0-34.0 [facility] Comment on above: Performed By: #### H EMDF, BMP3 #### [facility] [address] [place] [address] MCHC 33.4 % Normal 32.0-36.0 [facility] Comment on above: Performed By: #### H EMDF, BMP3 #### [facility] [address] [place] [address] MCV (RBC) [Entitic vol] 92.7 fL Normal 80.0-98.0 [facility] Comment on above: Performed By: #### H EMDF, BMP3 #### [facility] [address] [place] [address] Platelet mean volume (Bld) [Entitic vol] 8.6 fL Normal 7.4-10.4 [facility] Comment on above: Performed By: #### H EMDF, BMP3 #### [facility] [address] [place] [address] Platelets (Bld) [#/Vol] 236 10*3/uL Normal 140-440 [facility] Comment on above: Performed By: #### H EMDF, BMP3 #### [facility] [address] [place] [address] RBC (Bld) [#/Vol] 3.77 10*6/uL Low 4.40-5.90 [facility] Comment on above: Performed By: #### H EMDF, BMP3 #### [facility] [address] [place] [address] WBC (Bld) [#/Vol] 12.8 10*3/uL High 3.6-10.7 [facility] Comment on above: Performed By: #### H EMDF, BMP3 #### [facility] [address] [place] [address] Manual Diffon 03-24-2021 Abs Lymph Cnt 1.7 10*3/uL Normal 1.1-4.5 [facility] Comment on above: Performed By: #### H EMDF, BMP3 #### [facility] [address] [place] [address] Abs Monocyte Cnt 0.8 10*3/uL Normal 0.2-1.1 [facility] Comment on above: Performed By: #### H EMDF, BMP3 #### [facility] [address] [place] [address] Abs Neutrophile Cnt 10.1 10*3/uL High 2.2-8.2 [facility] Comment on above: Performed By: #### H EMDF, BMP3 #### [facility] [address] [place] [address] Anisocytosis Slight Normal [facility] Comment on above: Performed By: #### H EMDF, BMP3 #### [facility] [address] [place] [address] Atypical Lymphocytes 2 % Abnormal <1 [facility] Comment on above: Performed By: #### H EMDF, BMP3 #### [facility] [address] [place] [address] Alpine Cells Slight Normal [facility] Comment on above: Performed By: #### H EMDF, BMP3 #### [facility] [address] [place] [address] Lymphocytes 11 % Low 20-40 [facility] Comment on above: Performed By: #### H EMDF, BMP3 #### [facility] [address] [place] [address] Monocytes 6 % Normal 2-10 [facility] Comment on above: Performed By: #### H EMDF, BMP3 #### [facility] [address] [place] [address] Myelocytes 2 % Abnormal <1 [facility] Comment on above: Performed By: #### H EMDF, BMP3 #### [facility] [address] [place] [address] Ovalocytes Slight Normal [facility] Comment on above: Performed By: #### H EMDF, BMP3 #### [facility] [address] [place] [address] Poikilocytosis Slight Normal [facility] Comment on above: Performed By: #### H EMDF, BMP3 #### [facility] [address] [place] [address] Polychromasia Slight Normal [facility] Comment on above: Performed By: #### H EMDF, BMP3 #### [facility] [address] [place] [address] RBC Morphology ABNORMAL Normal [facility] Comment on above: Performed By: #### H EMDF, BMP3 #### [facility] [address] [place] [address] Seg Neutrophils 79 % Normal 40-80 [facility] Comment on above: Performed By: #### H EMDF, BMP3 #### [facility] [address] [place] [address] Tear Drop Forms Slight Normal [facility] Comment on above: Performed By: #### H EMDF, BMP3 #### [facility] [address] [place] [address] Abs Baso Cnt 0.0 10*3/uL Normal 0.0-0.2 [facility] Comment on above: Performed By: #### H EMDF, BMP3 #### [facility] [address] [place] [address] Abs Eosin Cnt 0.0 10*3/uL Normal 0.0-0.5 [facility] Comment on above: Performed By: #### H EMDF, BMP3 #### [facility] [address] [place] [address] Bands 0 % Normal 0-3 [facility] Comment on above: Performed By: #### H EMDF, BMP3 #### [facility] [address] [place] [address] Basophils 0 % Normal 0-2 [facility] Comment on above: Performed By: #### H EMDF, BMP3 #### [facility] [address] [place] [address] Cells counted [address] [facility] Comment on above: Performed By: #### H EMDF, BMP3 #### [facility] [address] [place] [address] Eosinophils 0 % Low 1-6 [facility] Comment on above: Performed By: #### H EMDF, BMP3 #### [facility] [address] [place] [address] Manual Differentialon 2020 Absolute Baso # 0.0 10*3/uL 0.0 - 0.2 10*3/uL [facility] Work Phone: Absolute Eos # 0.0 10*3/uL 0.0 - 0.5 10*3/uL [facility] Work Phone: [phone] Absolute Lymph # 1.7 10*3/uL 1.1 - 4.5 10*3/uL [facility] Work Phone: [phone] Absolute [place] # 0.8 10*3/uL 0.2 - 1.1 10*3/uL [facility] Work Phone: [phone] Absolute Neut # 10.1 10*3/uL High 2.2 - 8.2 10*3/uL [facility] Work Phone: [phone] Anisocytosis Slight [facility] Work Phone: [phone] Atypical Lymphocytes 2 % Abnormal <1 [facility] Work Phone: [phone] Bands 0 % 0 - 3 % [facility] Work Phone: [phone] Basophils/100 WBC (Bld) 0 % 0 - 2 % [facility] Work Phone: [phone] Alpine Cells Slight [facility] Work Phone: Eosinophils/100 WBC (Bld) 0 % Low 1 - 6 % [facility] Work Phone: Interpretation and review of laboratory results Abnormal [facility] Work Phone: [phone] Lymphocytes/100 WBC (Bld) 11 % Low 20 - 40 % [facility] Work Phone: [phone] Monocytes/100 WBC (Bld) 6 % 2 - 10 % [facility] Work Phone: Myelocytes 2 % Abnormal <1 [facility] Work Phone: Ovalocytes Slight [facility] Work Phone: Poikilocytes Slight [facility] Work Phone: Polychromasia Slight [facility] Work Phone: RBC (Bld) [#/Vol] ABNORMAL [facility] Work Phone: Seg Neutrophils 79 % 40 - 80 % [facility] Work Phone: Tear Drop Cells Slight [facility] Work Phone: TOTAL CELLS COUNTED 100 [facility] Work Phone: Test Performed by [facility], [address] [place], [place] [address] [facility] Work Phone: POCT Glucoseon 03-24-2021 Glucose [Mass/Vol] 93 mg/dL 70 - 100 mg/dL [facility] Work Phone: Comment on above: Test performed by gl ucose meter. Results may be 10%-15% lower than serum/plasma values. (CLIA ID [id number]) Test Performed by [facility], [address] [place], [place], [place] [address] [facility] Work Phone: Basic Metabolic Panelon 11-2 Calcium [Mass/Vol] 8.8 mg/dL Normal 8.4-10.4 [facility] Comment on above: Performed By: #### H EMDF BMP3 #### [facility] [address] [place] [address] Glucose [Mass/Vol] 143 mg/dL High 70-100 [facility] Comment on above: Performed By: #### H EMDF, BMP3 #### [facility] [address] [place] [address] Anion gap [Moles/Vol] 8 mmol/L Normal 3-13 [facility] Comment on above: Performed By: #### H MAYKEL BMP3 #### [facility] [address] [place] [address] CO2 [Moles/Vol] 24 mmol/L Normal 22-30 [facility] Comment on above: Performed By: #### H MAYKEL BMP3 #### [facility] [address] [place] [address] Creatinine [Mass/Vol] 0.47 mg/dL Low 0.52-1.25 [facility] Comment on above: Performed By: #### H EMDF BMP3 #### [facility] [address] [place] [address] eGFR OTHER > 90.0 Normal >60 [facility] Comment on above: Result Comment: KDIG [...] Performed By: #### H MAYKEL BMP3 #### [facility] [address] [place] [address] GFR/1.73 sq M.predicted among blacks MDRD (S/P/Bld) [Vol rate/Area] mL/min/{1.73_m2} Normal >60 [facility] Comment on above: Performed By: #### H MAYKEL BMP3 #### [facility] [address] [place] [address] Urea nitrogen [Mass/Vol] 32 mg/dL High 7-17 [facility] Comment on above: Performed By: #### H EMDF, BMP3 #### [facility] [address] [place] [address] Chloride [Moles/Vol] 110 mmol/L High 98-107 [facility] Comment on above: Performed By: #### H EMDF, BMP3 #### [facility] [address] [place] [address] Potassium [Moles/Vol] 3.9 mmol/L Normal 3.5-5.1 [facility] Comment on above: Performed By: #### H EMDF, BMP3 #### [facility] [address] [place] [address] Sodium [Moles/Vol] 142 mmol/L Normal 135-145 [facility] Comment on above: Performed By: #### H EMDF, BMP3 #### [facility] [address] [place] [address] Anion gap [Moles/Vol] 8 mmol/L 3 - 13 mmol/L [facility] Work Phone: Calcium [Mass/Vol] 8.8 mg/dL 8.4 - 10. 4 mg/dL [facility] Work Phone: Chloride [Moles/Vol] 110 mmol/L High 98 - 10 7 mmol/L [facility] Work Phone: CO2 [Moles/Vol] 24 mmol/L 22 - 30 mmol/L [facility] Work Phone: Creatinine [Mass/Vol] 0.47 mg/dL Low 0.52 - 1.25 mg/dL [facility] Work Phone: EGFR IF NonAfrican Algerian >90.0 >60 mL/min [facility] Work Phone: Comment on above: KDIGO [...] MDRD (S/P/Bld) [Vol rate/Area] mL/min/{1.73_m2} >60 mL/min [facility] Work Phone: Glucose [Mass/Vol] 143 mg/dL High 70 - 100 mg/dL [facility] Work Phone: Interpretation and review of laboratory results Abnormal [facility] Work Phone: Potassium [Moles/Vol] 3.9 mmol/L 3.5 - 5.1 mmol/L [facility] Work Phone: Sodium [Moles/Vol] 142 mmol/L 135 - 145 mmol/L [facility] Work Phone: Urea nitrogen (BldV) [Mass/Vol] 32 mg/dL High 7 - 17 mg/dL [facility] Work Phone: [facility], [address] [id number] [place] [address] LAB [facility] Work Phone: CBC Auto Differentialon 11-2 Absolute Baso # 0.0 10*3/uL 0.0 - 0.2 10*3/uL [facility] Work Phone: Absolute Neut # 13.5 10*3/uL High 1.8 - 7.0 10*3/uL [facility] Work Phone: Basophils/100 WBC (Bld) 0.3 % 0.0 - 2.0 % [facility] Work Phone: Eosinophils (Bld) [#/Vol] 0.0 10*3/uL 0.0 - 0.5 10*3/uL [facility] Work Phone: Eosinophils/100 WBC (Bld) 0.0 % Low 1.0 - 6.0 % [facility] Work Phone: Granulocytes/100 WBC (Bld) 89.5 % High 40.0 - 80.0 % [facility] Work Phone: Hematocrit (Bld) [Volume fraction] 36.5 % Low 40.0 - 52.0 % [facility] Work Phone: Hemoglobin.gastrointest inal spec 1 Ql (Stl) 12.4 g/dL Low 13.0 - 18.0 g/dL [facility] Work Phone: Interpretation and review of laboratory results Abnormal [facility] Work Phone: Lymphocytes (Bld) [#/Vol] 0.7 10*3/uL Low 1.0 - 4.3 10*3/uL [facility] Work Phone: Lymphocytes/100 WBC (Bld) 4.8 % Low 20.0 - 40.0 % [facility] Work Phone: MCH (RBC) [Entitic mass] 31.3 pg 26.0 - 34.0 pg [facility] Work Phone: MCHC (RBC) [Mass/Vol] 34.1 % 32.0 - 36.0 % [facility] Work Phone: MCV (RBC) [Entitic vol] 92.0 fL 80.0 - 98.0 fL [facility] Work Phone: Monocytes (Bld) [#/Vol] 0.8 10*3/uL 0.0 - 0.8 10*3/uL [facility] Work Phone: Monocytes/100 WBC (Bld) 5.4 % 2.0 - 10.0 % [facility] Work Phone: Platelet distribution width (Bld) [Ratio] 13.2 % 11.5 - 14.5 % [facility] Work Phone: Platelet mean volume (Bld) [Entitic vol] 9.0 fL 7.4 - 10.4 fL [facility] Work Phone: Platelets (Bld) [#/Vol] 211 10*3/uL 140 - 440 10*3/uL [facility] Work Phone: RBC (Bld) [#/Vol] 3.96 10*6/uL Low 4.40 - 5.9 0 10*6/uL [facility] Work Phone: WBC (Bld) [#/Vol] 15.1 10*3/uL High 3.6 - 10.7 10*3/uL [facility] Work Phone: Test Performed by [facility], [address] [place], [place] [address] [facility] Work Phone: Glucose,Bedsideon 03-23-2021 Glucose [Mass/Vol] 122 mg/dL High 70-100 [facility] Comment on above: Result Comment: Test performed by glucose meter. Results may be 10%-15% lower than serum/plasma values. (CLIA ID [id number]) Performed By: #### H EMDF, BMP3 #### [facility] [address] [place] [address] Glucose [Mass/Vol] 129 mg/dL High 70-100 [facility] Comment on above: Test performed by gl ucose meter. Results may be 10%-15% lower than serum/plasma values. (CLIA ID [id number]) Result Comment: Test performed by glucose meter. Results may be 10%-15% lower than serum/plasma values. (CLIA ID [id number]) Performed By: #### B GLU ####[facility] [address] [place] [address] Glucose [Mass/Vol] 136 mg/dL High 70-100 [facility] Comment on above: Result Comment: Test performed by glucose meter. Results may be 10%-15% lower than serum/plasma values. (CLIA ID [id number]) Performed By: #### B GLU #### [facility] [address] [place] [address] Hemogram w/ Autodiffon 03-23 Abs Baso Cnt 0.0 10*3/uL Normal 0.0-0.2 [facility] Comment on above: Performed By: #### H EMDF, BMP3 #### [facility] [address] [place] [address] Abs Neutrophile Cnt 13.5 10*3/uL High 1.8-7.0 [facility] Comment on above: Performed By: #### H EMDF, BMP3 #### [facility] [address] [place] [address] Basophils/100 WBC (Bld) 0.3 % Normal 0.0-2.0 [facility] Comment on above: Performed By: #### H EMDF, BMP3 #### [facility] [address] [place] [address] Eosinophils (Bld) [#/Vol] 0.0 10*3/uL Normal 0.0-0.5 [facility] Comment on above: Performed By: #### H EMDF, BMP3 #### [facility] [address] [place] [address] Eosinophils/100 WBC (Bld) 0.0 % Low 1.0-6.0 [facility] Comment on above: Performed By: #### H EMDF, BMP3 #### [facility] [address] [place] [address] Erythrocyte distribution width (RBC) [Ratio] 13.2 % Normal 11.5-14.5 [facility] Comment on above: Performed By: #### H EMDF, BMP3 #### [facility] [address] [place] [address] Granulocytes/100 WBC (Bld) 89.5 % High 40.0-80.0 [facility] Comment on above: Performed By: #### H EMDF, BMP3 #### [facility] [address] [place] [address] Hematocrit (Bld) [Volume fraction] 36.5 % Low 40.0-52.0 [facility] Comment on above: Performed By: #### H EMDF, BMP3 #### [facility] [address] [place] [address] Hemoglobin (Bld) [Mass/Vol] 12.4 g/dL Low 13.0-18.0 [facility] Comment on above: Performed By: #### H EMDF, BMP3 #### [facility] [address] [place] [address] Lymphocytes (Bld) [#/Vol] 0.7 10*3/uL Low 1.0-4.3 [facility] Comment on above: Performed By: #### H EMDF, BMP3 #### [facility] [address] [place] [address] Lymphocytes/100 WBC (Bld) 4.8 % Low 20.0-40.0 [facility] Comment on above: Performed By: #### H EMDF, BMP3 #### [facility] [address] [place] [address] MCH (RBC) [Entitic mass] 31.3 pg Normal 26.0-34.0 [facility] Comment on above: Performed By: #### H EMDF, BMP3 #### [facility] [address] [place] [address] MCHC 34.1 % Normal 32.0-36.0 [facility] Comment on above: Performed By: #### H EMDF, BMP3 #### [facility] [address] [place] [address] MCV (RBC) [Entitic vol] 92.0 fL Normal 80.0-98.0 [facility] Comment on above: Performed By: #### H EMDF, BMP3 #### [facility] [address] [place] [address] Monocytes (Bld) [#/Vol] 0.8 10*3/uL Normal 0.0-0.8 [facility] Comment on above: Performed By: #### H EMDF, BMP3 #### [facility] [address] [place] [address] Monocytes/100 WBC (Bld) 5.4 % Normal 2.0-10.0 [facility] Comment on above: Performed By: #### H EMDF, BMP3 #### [facility] [address] [place] [address] Platelet mean volume (Bld) [Entitic vol] 9.0 fL Normal 7.4-10.4 [facility] Comment on above: Performed By: #### H EMDF, BMP3 #### [facility] [address] [place] [address] Platelets (Bld) [#/Vol] 211 10*3/uL Normal 140-440 [facility] Comment on above: Performed By: #### H EMDF, BMP3 #### [facility] [address] [place] [address] RBC (Bld) [#/Vol] 3.96 10*6/uL Low 4.40-5.90 [facility] Comment on above: Performed By: #### H EMDF, BMP3 #### [facility] [address] [place] [address] WBC (Bld) [#/Vol] 15.1 10*3/uL High 3.6-10.7 [facility] Comment on above: Performed By: #### H EMDF, BMP3 #### [facility] [address] [place] [address] No Panel Informationon 03-23 Interpretation and review of laboratory results Abnormal [facility] Work Phone: Test Performed by [facility], [facility] [address] LAB [facility] Work Phone: POCT Glucoseon 03-23-2021 Glucose [Mass/Vol] 166 mg/dL High 70 - 100 mg/dL [facility] Comment on above: Test performed by gl ucose meter. Results may be 10%-15% lower than serum/plasma values. (CLIA ID [id number]) Interpretation and review of laboratory results Abnormal [facility] Test Performed by [facility], [facility] [address] LAB [facility] Glucose [Mass/Vol] 122 mg/dL High 70 - 100 mg/dL [facility] Work Phone: Comment on above: Test performed by gl ucose meter. Results may be 10%-15% lower than serum/plasma values. (CLIA ID [id number]) Glucose [Mass/Vol] 136 mg/dL High 70 - 100 mg/dL [facility] Comment on above: Test performed by gl ucose meter. Results may be 10%-15% lower than serum/plasma values. (CLIA ID [id number]) Interpretation and review of laboratory results Abnormal [facility] Test Performed by [facility], [address] [place], [place] [address] [facility] CBC Auto Differentialon 03-02 Absolute Baso # [...] - 10.7 10*3/uL [facility] Test Performed by [facility], [address] [place], [place] [id number] [place] [address] LAB [facility] Glucose,Bedsideon 03-22-2021 Glucose [Mass/Vol] 134 mg/dL High [address] [facility] Comment on above: Result Comment: Test performed by glucose meter. Results may be 10%-15% lower than serum/plasma values. (CLIA ID [id number]) Performed By: #### H EMDF, BMP3 #### [facility] [address] [place] [address] Glucose [Mass/Vol] 190 mg/dL High [address] Comment on above: Result Comment: Test performed by glucose meter. Results may be 10%-15% lower than serum/plasma values. (CLIA ID [id number]) Performed By: #### B GLU #### [facility] [address] [place] [address] Glucose [Mass/Vol] 200 mg/dL High 70-[address] [place] [address] Comment on above: Result Comment: Test performed by glucose meter. Results may be 10%-15% lower than serum/plasma values. (CLIA ID [id number]) Performed By: #### B GLU #### [facility] [address] [place] [address] Glucose [Mass/Vol] 181 mg/dL High 70-[address] [place] [address] Comment on above: Result Comment: Test performed by glucose meter. Results may be 10%-15% lower than serum/plasma values. (CLIA ID [id number]) Performed By: #### B GLU #### [facility] [address] [place] [address] Glucose [Mass/Vol] 186 mg/dL High 70-100 [facility] Comment on above: Result Comment: Test performed by glucose meter. Results may be 10%-15% lower than serum/plasma values. (CLIA ID [id number]) Performed By: #### B GLU #### [facility] [address] [place] [address] Hemoglobin A1Con 03-22-2021 Glucose [Mass/Vol] 108 mg/dL Normal [facility] Comment on above: Performed By: #### B GLU #### [facility] [address] [place] [address] HbA1c (Bld) [Mass fraction] 5.4 % Normal [facility] Comment on above: Result Comment: Norm al less than 5.7% Prediabetes 5.7% to 6.4% Diabetes 6.5% or higher --HgbA1C levels may not be accurate in patients who have renal disease, received recent blood transfusions, are anemic, or who have dyshemoglobinemia. Performed By: #### B GLU #### [facility] [address] [place] [address] HbA1c (Bld) [Mass fraction] 5.4 % [facility] Comment on above: Normal less than 5.7 % Prediabetes 5.7% to 6.4% Diabetes 6.5% or higher --HgbA1C levels may not be accurate in patients who have renal disease, received recent blood transfusions, are anemic, or who have dyshemoglobinemia. Magnesium [Mass/Vol] 108 mg/dL [facility] Test Performed by [facility], [address] [place], [place] [address] [facility] Hemogram w/ Autodiffon 03-22 Abs Baso Cnt 0.0 10*3/uL Normal 0.0-0.2 [facility] Comment on above: Performed By: #### B GLU #### [facility] [address] [place] [address] Abs Neutrophile Cnt 12.3 10*3/uL High 1.8-7.0 [facility] Comment on above: Performed By: #### B GLU #### [facility] [address] [place] [address] Basophils/100 WBC (Bld) 0.2 % Normal 0.0-2.0 [facility] Comment on above: Performed By: #### B GLU #### [facility] [address] [place] [address] Eosinophils (Bld) [#/Vol] 0.0 10*3/uL Normal 0.0-0.5 [facility] Comment on above: Performed By: #### B GLU #### [facility] [address] [place] [address] Eosinophils/100 WBC (Bld) 0.0 % Low 1.0-6.0 [facility] Comment on above: Performed By: #### B GLU #### [facility] [address] [place] [address] Erythrocyte distribution width (RBC) [Ratio] 12.8 % Normal 11.5-14.5 [facility] Comment on above: Performed By: #### B GLU #### [facility] [address] [place] [address] Granulocytes/100 WBC (Bld) 92.7 % High 40.0-80.0 [facility] Comment on above: Performed By: #### B GLU #### [facility] [address] [place] [address] Hematocrit (Bld) [Volume fraction] 35.9 % Low 40.0-52.0 [facility] Comment on above: Performed By: #### B GLU #### [facility] [address] [place] [address] Hemoglobin (Bld) [Mass/Vol] 12.4 g/dL Low 13.0-18.0 [facility] Comment on above: Performed By: #### B GLU #### [facility] [address] [place] [address] Lymphocytes (Bld) [#/Vol] 0.5 10*3/uL Low 1.0-4.3 [facility] Comment on above: Performed By: #### B GLU #### [facility] [address] [place] [address] Lymphocytes/100 WBC (Bld) 3.6 % Low 20.0-40.0 [facility] Comment on above: Performed By: #### B GLU #### [facility] [address] [place] [address] MCH (RBC) [Entitic mass] 31.6 pg Normal 26.0-34.0 [facility] Comment on above: Performed By: #### B GLU #### [facility] [address] [place] [address] MCHC 34.6 % Normal 32.0-36.0 [facility] Comment on above: Performed By: #### B GLU #### [facility] [address] [place] [address] MCV (RBC) [Entitic vol] 91.2 fL Normal 80.0-98.0 [facility] Comment on above: Performed By: #### B GLU #### [facility] [address] [place] [address] Monocytes (Bld) [#/Vol] 0.5 10*3/uL Normal 0.0-0.8 [facility] Comment on above: Performed By: #### B GLU #### [facility] [address] [place] [address] Monocytes/100 WBC (Bld) 3.5 % Normal 2.0-10.0 [facility] Comment on above: Performed By: #### B GLU #### [facility] [address] [place] [address] Platelet mean volume (Bld) [Entitic vol] 9.5 fL Normal 7.4-10.4 [facility] Comment on above: Performed By: #### B GLU #### [facility] [address] [place] [address] Platelets (Bld) [#/Vol] 158 10*3/uL Normal 140-440 [facility] Comment on above: Performed By: #### B GLU #### [facility] [address] [place] [address] RBC (Bld) [#/Vol] 3.93 10*6/uL Low 4.40-5.90 [facility] Comment on above: Performed By: #### B GLU #### [facility] [address] [place] [address] WBC (Bld) [#/Vol] 13.3 10*3/uL High 3.6-10.7 [facility] Comment on above: Performed By: #### B GLU #### [facility] [address] [place] [address] MRSA by PCRon 03-22-2021 Staph Aureus Sc No S. aureus detected. Negative nasal MRSA PCR has a high negative predictive value for MRSA pneumonia. Consider stopping vancomycin if no other clinical indication. Contact Antimicrobial Stewardship for further recommendations. The analytical performance characteristics of this assay have been determined by [employer] in accordance with CLIA regulations. The modifications have not been cleared or approved by the U. S. Food and Drug Administration; however, the FDA has determined that such clearance or approval is not necessary. [facility] Test Performed by [facility], [address] [place] [id number] [place] [address] LAB [facility] POCT GlucoseOrdered By: Same lizy Morgan on 03-22-2021 Glucose [Mass/Vol] 134 mg/dL High 70 - 100 mg/dL [facility] Work Phone: Comment on above: Test performed by gl ucose meter. Results may be 10%-15% lower than serum/plasma values. (CLIA ID [id number]) Interpretation and review of laboratory results Abnormal [facility] Work Phone: [facility] Work Phone: POCT Glucoseon 03-22-2021 Test Performed by [facility], [address] [place], [place] [address] [facility] Glucose [Mass/Vol] 190 mg/dL High 70 - 100 mg/dL [facility] Comment on above: Test performed by gl ucose meter. Results may be 10%-15% lower than serum/plasma values. (CLIA ID [id number]) Interpretation and review of laboratory results Abnormal [facility] Test Performed by [facility], [address] LAB [facility] Glucose [Mass/Vol] 200 mg/dL High 70 - 100 mg/dL [facility] Comment on above: Test performed by gl ucose meter. Results may be 10%-15% lower than serum/plasma values. (CLIA ID [id number]) Interpretation and review of laboratory results Abnormal [facility] Test Performed by [facility], [address] LAB [facility] Glucose [Mass/Vol] 181 mg/dL High 70 - 100 mg/dL [facility] Comment on above: Test performed by gl ucose meter. Results may be 10%-15% lower than serum/plasma values. (CLIA ID [id number]) Interpretation and review of laboratory results Abnormal [facility] Test Performed by [facility], [address] LAB [facility] Glucose [Mass/Vol] 186 mg/dL High 70 - 100 mg/dL [facility] Comment on above: Test performed by gl ucose meter. Results may be 10%-15% lower than serum/plasma values. (CLIA ID [id number]) Interpretation and review of laboratory results Abnormal [facility] Test Performed by [facility], [address] LAB [facility] Procalcitoninon 03-22-2021 Procalcitonin 0.09 ng/mL Normal 0.00-0.09 [facility] Comment on above: Performed By: #### H [facility] #### [facility] [address] [place] [address] Interpretation See Below [facility] Comment on above: PCT <0.50 = Low risk of severe sepsis and/or septic shock. PCT >2.00 = High risk of severe sepsis and/or septic shock. Procalcitonin 0.09 ng/mL 0.00 - 0.09 ng/mL [facility] Test Performed by [facility], [address] [place] [address] [facility] Staph Aureus Complete Nasalo n 03-22-2021 Staph Aureus Complete Nasal Staph Screen --> Status: F No S. aureus detected. Negative nasal MRSA PCR has a high negative predictive value for MRSA pneumonia. Consider stopping vancomycin if no other clinical indication. Contact Antimicrobial Stewardship for further recommendations. The analytical performance characteristics of this assay have been determined by [employer] in accordance with CLIA regulations. The modifications [...] of this assay have been determined by [employer] in accordance with CLIA regulations. The modifications have not been cleared or approved by the U. S. Food and Drug Administration; however, the FDA has determined that such clearance or approval is not necessary. Normal [facility] Comment on above: Performed By: #### S APCR ####[facility] [id number] [place] [address] Vancomycin Troughon 03-22-20 21 Vancomycin Trough 8.1 ug/mL Low 15.0-20.0 [facility] Comment on above: Result Comment: . Performed By: #### B GLU #### [facility] [address] [place] [address] Vancomycin, Troughon 021 Interpretation and review of laboratory results Abnormal [facility] Vancomycin Tr 8.1 ug/mL Low 15.0 - 20.0 ug/mL [facility] Comment on above: . Test Performed by [facility], [address] [place], [place] [address] [facility] Basic Metabolic Panelon 03-02 Anion gap [Moles/Vol] 7 mmol/L Normal 3-13 [facility] Comment on above: Performed By: #### H MAYKEL BMP3 #### [facility] [address] [place] [address] Calcium [Mass/Vol] 8.1 mg/dL Low 8.4-10.4 [facility] Comment on above: Performed By: #### H MAYKEL BMP3 #### [facility] [address] [place] [address] CO2 [Moles/Vol] 26 mmol/L Normal 22-30 [facility] Comment on above: Performed By: #### H MAYKEL BMP3 #### [facility] [address] [place] [address] Glucose [Mass/Vol] 156 mg/dL High 70-100 [facility] Comment on above: Performed By: #### H ALCIRAF BMP3 #### [facility] [address] [place] [address] Urea nitrogen [Mass/Vol] 19 mg/dL High 7-17 [facility] Comment on above: Performed By: #### H ALCIRAF BMP3 #### [facility] [address] [place] [address] Creatinine [Mass/Vol] 0.53 mg/dL Normal 0.52-1.25 [facility] Comment on above: Performed By: #### H ALCIRAF BMP3 #### [facility] [address] [place] [address] eGFR OTHER > 90.0 Normal >60 [facility] Comment on above: Result Comment: KDIG [...] Performed By: #### H MAYKEL BMP3 #### [facility] [address] [place] [address] GFR/1.73 sq M.predicted among blacks MDRD (S/P/Bld) [Vol rate/Area] mL/min/{1.73_m2} Normal >60 [facility] Comment on above: Performed By: #### H EMDF, BMP3 #### [facility] [address] [place] [address] Chloride [Moles/Vol] 103 mmol/L Normal 98-107 [facility] Comment on above: Performed By: #### H EMDF, BMP3 #### [facility] [address] [place] [address] Potassium [Moles/Vol] 3.4 mmol/L Low 3.5-5.1 [facility] Comment on above: Performed By: #### H EMDF, BMP3 #### [facility] [address] [place] [address] Sodium [Moles/Vol] 136 mmol/L Normal 135-145 [facility] Comment on above: Performed By: #### H EMDF, BMP3 #### [facility] [address] [place] [address] Basic Metabolic Panel w/ Ref marciano to MGon 03-21-2021 Anion gap [Moles/Vol] 7 mmol/L 3 - 13 mmol/L [facility] Work Phone: Calcium [Mass/Vol] 8.1 mg/dL Low 8.4 - 10. 4 mg/dL [facility] Work Phone: Chloride [Moles/Vol] 103 mmol/L 98 - 10 7 mmol/L [facility] Work Phone: CO2 [Moles/Vol] 26 mmol/L 22 - 30 mmol/L [facility] Work Phone: Creatinine [Mass/Vol] 0.53 mg/dL 0.52 - 1.25 mg/dL [facility] Work Phone: EGFR IF NonAfrican Algerian >90.0 >60 mL/min [facility] Work Phone: Comment on above: KDIGO [...] MDRD (S/P/Bld) [Vol rate/Area] mL/min/{1.73_m2} >60 mL/min [facility] Work Phone: Glucose [Mass/Vol] 156 mg/dL High 70 - 100 mg/dL [facility] Work Phone: Interpretation and review of laboratory results Abnormal [facility] Work Phone: Potassium [Moles/Vol] 3.4 mmol/L Low 3.5 - 5.1 mmol/L [facility] Work Phone: Sodium [Moles/Vol] 136 mmol/L 135 - 145 mmol/L [facility] Work Phone: Urea nitrogen (BldV) [Mass/Vol] 19 mg/dL High 7 - 17 mg/dL [facility] Work Phone: Test Performed by [facility], [address] [id number] [place] [address] LAB [facility] Work Phone: CBCon 03-21-2021 Hematocrit (Bld) [Volume fraction] 35.4 % Low 40.0 - 52.0 % [facility] Work Phone: Hemoglobin.gastrointest inal spec 1 Ql (Stl) 11.9 g/dL Low 13.0 - 18.0 g/dL [facility] Work Phone: Interpretation and review of laboratory results Abnormal [facility] Work Phone: MCH (RBC) [Entitic mass] 30.5 pg 26.0 - 34.0 pg [facility] Work Phone: MCHC (RBC) [Mass/Vol] 33.7 % 32.0 - 36.0 % [facility] Work Phone: MCV (RBC) [Entitic vol] 90.6 fL 80.0 - 98.0 fL [facility] Work Phone: Platelet distribution width (Bld) [Ratio] 13.1 % 11.5 - 14.5 % [facility] Work Phone: Platelet mean volume (Bld) [Entitic vol] 9.1 fL 7.4 - 10.4 fL [facility] Work Phone: Platelets (Bld) [#/Vol] 136 10*3/uL Low 140 - 440 10*3/uL [facility] Work Phone: RBC (Bld) [#/Vol] 3.91 10*6/uL Low 4.40 - 5.9 0 10*6/uL [facility] Work Phone: WBC (Bld) [#/Vol] 7.1 10*3/uL 3.6 - 10.7 10*3/uL [facility] Work Phone: Test Performed by [facility], [address] [place], [place] [id number] [place] [address] LAB [facility] Work Phone: Glucose,Bedsideon 03-21-2021 Glucose [Mass/Vol] 131 mg/dL High 70-100 [facility] Comment on above: Result Comment: Test performed by glucose meter. Results may be 10%-15% lower than serum/plasma values. (CLIA ID [id number]) Performed By: #### B GLU #### [facility] [address] [place] [address] Glucose [Mass/Vol] 230 mg/dL High 70-100 [facility] Comment on above: Result Comment: Test performed by glucose meter. Results may be 10%-15% lower than serum/plasma values. (CLIA ID [id number]) Performed By: #### B GLU #### [facility] [address] [place] [address] Hemogramon 03-21-2021 Erythrocyte distribution width (RBC) [Ratio] 13.1 % Normal 11.5-14.5 [facility] Comment on above: Performed By: #### H MAYKEL BMP3 #### [facility] [address] [place] [address] Hematocrit (Bld) [Volume fraction] 35.4 % Low 40.0-52.0 [facility] Comment on above: Performed By: #### H MAYKEL BMP3 #### [facility] [address] [place] [address] Hemoglobin (Bld) [Mass/Vol] 11.9 g/dL Low 13.0-18.0 [facility] Comment on above: Performed By: #### H MAYKEL BMP3 #### [facility] [address] [place] [address] MCH (RBC) [Entitic mass] 30.5 pg Normal 26.0-34.0 [facility] Comment on above: Performed By: #### H MAYKEL BMP3 #### [facility] [address] [place] [address] MCHC 33.7 % Normal 32.0-36.0 [facility] Comment on above: Performed By: #### H MAYKEL BMP3 #### [facility] [address] [place] [address] MCV (RBC) [Entitic vol] 90.6 fL Normal 80.0-98.0 [facility] Comment on above: Performed By: #### H MAYKEL BMP3 #### [facility] [address] [place] [address] Platelet mean volume (Bld) [Entitic vol] 9.1 fL Normal 7.4-10.4 [facility] Comment on above: Performed By: #### H MAYKEL BMP3 #### [facility] [address] [place] [address] Platelets (Bld) [#/Vol] 136 10*3/uL Low 140-440 [facility] Comment on above: Performed By: #### H MAYKEL BMP3 #### [facility] [address] [place] [address] RBC (Bld) [#/Vol] 3.91 10*6/uL Low 4.40-5.90 [facility] Comment on above: Performed By: #### H EMDF, BMP3 #### [facility] [address] [place] [address] WBC (Bld) [#/Vol] 7.1 10*3/uL Normal 3.6-10.7 [facility] Comment on above: Performed By: #### H EMDF, BMP3 #### [facility] [address] [place] [address] Magnesiumon 03-21-2021 Magnesium [Mass/Vol] 2.2 mg/dL Normal 1.6-2.3 [facility] Comment on above: Performed By: #### H EMDF, BMP3 #### [facility] [address] [place] [address] Magnesium [Mass/Vol] 2.2 mg/dL 1.6 - 2 .3 mg/dL [facility] Work Phone: Test Performed by [facility], [facility] [address] LAB [facility] Work Phone: POCT Glucoseon 03-21-2021 Glucose [Mass/Vol] 131 mg/dL High 70 - 100 mg/dL [facility] Comment on above: Test performed by gl ucose meter. Results may be 10%-15% lower than serum/plasma values. (CLIA ID [id number]) Interpretation and review of laboratory results Abnormal [facility] Test Performed by [facility], [address] LAB [facility] Glucose [Mass/Vol] 230 mg/dL High 70 - 100 mg/dL [facility] Comment on above: Test performed by gl ucose meter. Results may be 10%-15% lower than serum/plasma values. (CLIA ID [id number]) Interpretation and review of laboratory results Abnormal [facility] Test Performed by [facility], [address] LAB [facility] Procalcitoninon 03-21-2021 Interpretation See Below Normal [facility] Comment on above: Result Comment: PCT <0.50 = Low risk of severe sepsis and/or septic shock. PCT >2.00 = High risk of severe sepsis and/or septic shock. Performed By: #### H MAYKEL BMP3 #### [facility] [address] [place] [address] Basic Metabolic Panelon 11 Calcium [Mass/Vol] 8.4 mg/dL Normal 8.4-10.4 [facility] Comment on above: Performed By: #### H MAYKEL BMP3 #### [facility] [address] [place] [address] Anion gap [Moles/Vol] 6 mmol/L Normal 3-13 [facility] Comment on above: Performed By: #### H MAYKEL BMP3 #### [facility] [address] [place] [address] CO2 [Moles/Vol] 27 mmol/L Normal 22-30 [facility] Comment on above: Performed By: #### H MAYKEL BMP3 #### [facility] [address] [place] [address] Glucose [Mass/Vol] 106 mg/dL High 70-100 [facility] Comment on above: Performed By: #### H MAYKEL, BMP3 #### [facility] [address] [place] [address] Urea nitrogen [Mass/Vol] 14 mg/dL Normal 7-17 [facility] Comment on above: Performed By: #### H MAYKEL BMP3 #### [facility] [address] [place] [address] Creatinine [Mass/Vol] 0.51 mg/dL Low 0.52-1.25 [facility] Comment on above: Performed By: #### H MAYKEL BMP3 #### [facility] [address] [place] [address] eGFR OTHER > 90.0 Normal >60 [facility] Comment on above: Result Comment: KDIG [...] Performed By: #### H MAYKEL BMP3 #### [facility] [address] [place] [address] GFR/1.73 sq M.predicted among blacks MDRD (S/P/Bld) [Vol rate/Area] mL/min/{1.73_m2} Normal >60 [facility] Comment on above: Performed By: #### Kerri BRAR BMP3 #### [facility] [address] [place] [address] Chloride [Moles/Vol] 104 mmol/L Normal 98-107 [facility] Comment on above: Performed By: #### H MAYKEL BMP3 #### [facility] [address] [place] [address] Potassium [Moles/Vol] 3.9 mmol/L Normal 3.5-5.1 [facility] Comment on above: Performed By: #### H MAYKEL BMP3 #### [facility] [address] [place] [address] Sodium [Moles/Vol] 137 mmol/L Normal 135-145 [facility] Comment on above: Performed By: #### Kerri BRAR BMP3 #### [facility] [address] [place] [address] Anion gap [Moles/Vol] 6 mmol/L 3 - 13 mmol/L [facility] Work Phone: Calcium [Mass/Vol] 8.4 mg/dL 8.4 - 10. 4 mg/dL [facility] Work Phone: Chloride [Moles/Vol] 104 mmol/L 98 - 10 7 mmol/L [facility] Work Phone: CO2 [Moles/Vol] 27 mmol/L 22 - 30 mmol/L [facility] Work Phone: Creatinine [Mass/Vol] 0.51 mg/dL Low 0.52 - 1.25 mg/dL [facility] Work Phone: EGFR IF NonAfrican Algerian >90.0 >60 mL/min [facility] Work Phone: Comment [...] mg/dL [facility] Work Phone: Test Performed by [facility], [address] [place], [place] [id number] [place] [address] LAB [facility] Work Phone: C-Reactive Proteinon 021 CRP [Mass/Vol] 228.1 mg/L High 0.0-9.9 [facility] Comment on above: Result Comment: . Performed By: #### H EMD, BMP3 #### [facility] [address] [place] [address] CRP [Mass/Vol] 228.1 mg/L High 0.0 - 9.9 mg/L [facility] Work Phone: Comment on above: . Interpretation and review of laboratory results Abnormal [facility] Work Phone: Test Performed by [facility], [address] [place], [place] [id number] [place] [address] LAB [facility] Work Phone: COVID and Resp PCR Panelon 1 05-20-2020 SARS-CoV-2 (COVID-19) RNA SHIRLEY+probe Ql (Unsp spec) COVID and Resp PCR Panel --> Status: F POSITIVE: Respiratory Syncytial Virus DETECTED. _ Expected Result: Not Detected The [employer] Upper Respiratory Pathogens PCR Panel can detect the following targets: SARS-CoV-2, Adenovirus, Coronavirus 229E, Coronavirus HKU1, Coronavirus NL63, Coronavirus OC43, Human Metapneumovirus, Human Rhinovirus/Enteroviru s, Influenza A, Influenza B, Parainfluenza Virus 1, Parainfluenza Virus 2, Parainfluenza Virus 3, Parainfluenza Virus 4, Respiratory Syncytial Virus, Bordetella pertussis, Bordetella parapertussis, Chlamydia pneumoniae, Mycoplasma pneumoniae. Method: Real-time PCR. _ Expected Result: Not Detected The [employer] Upper Respiratory Pathogens PCR Panel can detect the following targets: SARS-CoV-2, Adenovirus, Coronavirus 229E, Coronavirus HKU1, Coronavirus NL63, Coronavirus OC43, Human Metapneumovirus, Human Rhinovirus/Enteroviru s, Influenza A, Influenza B, Parainfluenza Virus 1, Parainfluenza Virus 2, Parainfluenza Virus 3, Parainfluenza Virus 4, Respiratory Syncytial Virus, Bordetella pertussis, Bordetella parapertussis, Chlamydia pneumoniae, Mycoplasma pneumoniae. Method: Real-time PCR. Abnormal [facility] Comment on above: Performed By: #### B FRP2 #### [facility] [address] [place] [id number] EKG 12 Lead - Chest Painon 1 05-20-[address] [facility] Test Date: 2021-03-19 Pat Name: KATHYA HOOPER Department: 1 Room: 465 Gender: M Director Of Content And Programming: SHAILA : 1955 Requested By: BRADY DESAI Order Number: [id number] Reading MD: Fei Menjivar Measurements Intervals [place] Rate: 102 P: 71 [place]: 172 QRS: -30 QRSD: 156 T: 85 QT: 412 QTc: 537 Interpretive Statements SINUS TACHYCARDIA LEFT BUNDLE BRANCH BLOCK Electronically Signed On 03-20-2021 22:47:41 EST by Fei BARNETT CARDIOLOGY Fei Menjivar MD - 03/20/2021 [facility] Test Date: 2021-03-19 Pat Name: KATHYA HOOPER Department: 1 Room: 465 Gender: M Director Of Content And Programming: SHAILA : 1955 Requested By: BRADY DESAI Order Number: [id number] Reading MD: Fei Menjivar Measurements Intervals [place] Rate: 102 P: 71 [place]: 172 QRS: -30 QRSD: 156 T: 85 QT: 412 QTc: 537 Interpretive Statements SINUS TACHYCARDIA LEFT BUNDLE BRANCH BLOCK Electronically Signed On 03-20-2021 22:47:41 EST by Fei BARNETT Work Phone: EKG 12 Lead - Chest PainOrde red By: Fei Menjivar on 03-20-2021 [facility] Work Phone: Lactic Acidon 03-20-2021 Lactate [Moles/Vol] 0.7 mmol/L Normal 0.7-2.0 [facility] Comment on above: Performed By: #### H EMDF, BMP3 #### [facility] [address] [place] [address] Lactic Acid, Plasmaon 2020 Lactate [Moles/Vol] 0.7 mmol/L 0.7 - 2. 0 mmol/L [facility] Work Phone: Test Performed by [facility], [address] [place] [address] [facility] Work Phone: PROCALCITONINon 03-20-2021 Interpretation See Below [facility] Work Phone: Comment on above: PCT <0.50 = Low risk of severe sepsis and/or septic shock. PCT >2.00 = High risk of severe sepsis and/or septic shock. Interpretation and review of laboratory results Abnormal [facility] Work Phone: Test Performed by [facility], [address] [place] [id number] [place] [address] LAB [facility] Work Phone: Procalcitoninon 03-20-2021 Procalcitonin 0.14 ng/mL High 0.00-0.09 [facility] Work Phone: Comment on above: Performed By: #### H EMDF, BMP3 #### [facility] [address] [place] [address] Interpretation See Below Normal [facility] [facility] Comment on above: Result Comment: PCT <0.50 = Low risk of severe sepsis and/or septic shock. PCT >2.00 = High risk of severe sepsis and/or septic shock. Performed By: #### H EMDF, BMP3 #### [facility] [address] [place] [address] Troponinon 03-20-2021 Interpretation and review of laboratory results Abnormal [facility] Work Phone: Troponin I.cardiac [Mass/Vol] 0.037 ng/mL High 0.000 - 0.034 ng/mL [facility] Work Phone: Comment on above: . [facility], [address] [place] [address] [facility] Work Phone: Troponin Ion 03-20-2021 Troponin I.cardiac [Mass/Vol] 0.037 ng/mL High 0.000-0.034 [facility] Comment on above: Result Comment: . Performed By: #### H EMDF, BMP3 #### [facility] [address] [place] [address] Arterial Blood Gas Respirato yasmine 03-19-2021 Base Excess 1.2 mmol/L Normal -3.0-3.0 [facility] Comment on above: Performed By: #### B GLU #### [facility] [address] [place] [address] CO2 [Moles/Vol] 25.6 mmol/L Normal 23.0-27.0 [facility] Comment on above: Performed By: #### B GLU #### [facility] [address] [place] [address] FIO2 5 Normal [facility] Comment on above: Result Comment: Perf ormed by CLIA ID: [id number] [place], [place] Performed By: #### B GLU #### [facility] [address] [place] [address] HCO3 (Bld) [Moles/Vol] 24.6 mmol/L Normal 21.0-25.0 [facility] Comment on above: Performed By: #### B GLU #### [facility] [address] [place] [address] Oxygen (Bld) [Partial pressure] 56.7 mm[Hg] Low 80.0-100.0 [facility] Comment on above: Performed By: #### B GLU #### [facility] [address] [place] [address] Oxygen saturation in Blood 91.0 % Low 95.0-100.0 [facility] Comment on above: Performed By: #### B GLU #### [facility] [address] [place] [address] pCO2 33.9 mm[Hg] Low 35.0-45.0 [facility] Comment on above: Performed By: #### B GLU #### [facility] [address] [place] [address] pH 7.468 High 7.350-7.450 [facility] Comment on above: Performed By: #### B GLU #### [facility] [address] [place] [address] Basic Metabolic Panelon 11-1 Anion gap [Moles/Vol] 9 mmol/L Normal 3-13 [facility] Comment on above: Performed By: #### B MP3, TROPN ####[facility] [place] [address] Calcium [Mass/Vol] 8.5 mg/dL Normal 8.4-10.4 [facility] Comment on above: Performed By: #### B MP3, TROPN ####[facility] [place] [address] CO2 [Moles/Vol] 26 mmol/L Normal 22-30 [facility] Comment on above: Performed By: #### B MP3, TROPN ####[facility] [place] [address] Creatinine [Mass/Vol] 0.48 mg/dL Low 0.52-1.25 [facility] Comment on above: Performed By: #### B MP3, TROPN ####[facility] [place] [address] eGFR OTHER > 90.0 Normal >60 [facility] Comment on above: Result Comment: KDIG [...] secretion. Performed By: #### B MP3, TROPN ####[facility] [place] [address] GFR/1.73 sq M.predicted among blacks MDRD (S/P/Bld) [Vol rate/Area] mL/min/{1.73_m2} Normal >60 [facility] Comment on above: Performed By: #### B MP3, TROPN ####[facility] [place] [address] Glucose [Mass/Vol] 132 mg/dL High 70-100 [facility] Comment on above: Performed By: #### B MP3, TROPN ####[place] [address] [place] [address] Urea nitrogen [Mass/Vol] 16 mg/dL Normal 7-17 [facility] Comment on above: Performed By: #### B MP3, TROPN ####[place] [address] [place] [address] Chloride [Moles/Vol] 102 mmol/L Normal 98-107 [facility] Comment on above: Performed By: #### B MP3, TROPN ####[facility] [place] [address] Potassium [Moles/Vol] 4.1 mmol/L Normal 3.5-5.1 [facility] Comment on above: Performed By: #### B MP3, TROPN ####[place] [address] [place] [address] Sodium [Moles/Vol] 137 mmol/L Normal 135-145 [facility] Comment on above: Performed By: #### B MP3, TROPN ####[facility] [place] [address] Anion gap [Moles/Vol] 9 mmol/L 3 - 13 mmol/L [facility] Calcium [Mass/Vol] 8.5 mg/dL 8.4 - 10. 4 mg/dL [facility] Chloride [Moles/Vol] 102 mmol/L 98 - 10 7 mmol/L [facility] CO2 [Moles/Vol] 26 mmol/L 22 - 30 mmol/L [facility] Creatinine [Mass/Vol] 0.48 mg/dL Low 0.52 - 1.25 mg/dL [facility] EGFR IF NonAfrican Algerian >90.0 >60 mL/min [facility] Comment on above: [...] - 17 mg/dL [facility] Test Performed by [facility], [address] [place], [place] [id number] [place] [address] LAB [facility] CBC Auto Differentialon 03-01 Absolute Baso # 0.1 10*3/uL 0.0 - 0.2 10*3/uL [facility] Absolute Neut # 7.2 10*3/uL High 1.8 - 7.0 10*3/uL [facility] Hemoglobin.gastrointest inal spec 1 Ql (Stl) 13.1 g/dL 13.0 - 18.0 g/dL [facility] MCHC (RBC) [Mass/Vol] 33.9 % 32.0 - 36.0 % [facility] Platelet distribution width (Bld) [Ratio] 13.0 % 11.5 - 14.5 % [facility] COVID-19, Flu A/B, and RSV C omboon 03-19-2021 Influenza A by PCR Not detected [facility] A Influenza B by PCR Not detected [facility] A Interpretation and review of laboratory results Abnormal [facility] RSV PCR DETECTED Expected Result: Not Detected _ Method: Real-time, RT-PCR This assay was developed by [employer] and distributed under an Emergency Use Authorization (EUA) granted by the FDA for the qualitative detection of nucleic acids from SARS-CoV-2, Influenza A, Influenza B, and Respiratory Syncytial Virus. Provider and patient fact sheets can be found at https://www.fda.gov/m edia/533879/download and https://www.fda.gov/m edia/653415/download. Abnormal [facility] SARS-CoV-2 (COVID-19) RNA SHIRLEY+probe Ql (Unsp spec) Not detected [facility] Test Performed by [facility], [address] [place] [address] LAB [facility] CR Chest Portableon 03-19-20 21 CR Chest Portable Patient Name: KATHYA HOOPER Diagnostic Radiology ACCESSION EXAM DATE/TIME PROCEDURE ORDERING PROVIDER [id number] 03/19/2021 17:10 EST CR Chest Portable [id number] -BRADY DESAI CPT code 03100 Reason For Exam (CR Chest Portable) hypoxia [...] J Transcribed Date and Time: 03/19/2021 5:22 [facility] ED Provider Noteon ED Provider Note Emergency Department Encounter [facility] ED Patient: Kathya Hooper : 1955 Date of Evaluation: 03/19/2021 ED Provider: Brady Desai, DO Chief Complaint Chief Complaint Patient presents with ? Shortness of Breath HOOPA I wore appropriate PPE for the entirety [...] otherwise acutely negative except as in the HOOPA. Past History Past Medical History: Diagnosis Date [...] and Family: Not on file ? Attends Muslim Services: Not on file ? Active Member [...] TABLET T (more content not included)... Normal [facility] Hemogram w/ Autodiffon 03-19 Abs Baso Cnt 0.1 10*3/uL Normal 0.0-0.2 [facility] Comment on above: Performed By: #### B GLU #### [facility] [address] [place] [address] Abs Neutrophile Cnt 7.2 10*3/uL High 1.8-7.0 [facility] Comment on above: Performed By: #### B GLU #### [facility] [address] [place] [address] Basophils/100 WBC (Bld) 0.6 % Normal 0.0-2.0 [facility] Comment on above: Performed By: #### B GLU #### [facility] [address] [place] [address] Eosinophils (Bld) [#/Vol] 0.0 10*3/uL Normal 0.0-0.5 [facility] Comment on above: Performed By: #### B GLU #### [facility] [address] [place] [address] Eosinophils/100 WBC (Bld) 0.2 % Low 1.0-6.0 [facility] Comment on above: Performed By: #### B GLU #### [facility] [address] [place] [address] Erythrocyte distribution width (RBC) [Ratio] 13.0 % Normal 11.5-14.5 [facility] Comment on above: Performed By: #### B GLU #### [facility] [address] [place] [address] Granulocytes/100 WBC (Bld) 79.0 % Normal 40.0-80.0 [facility] Comment on above: Performed By: #### B GLU #### [facility] [address] [place] [address] Hematocrit (Bld) [Volume fraction] 38.5 % Low 40.0-52.0 [facility] Comment on above: Performed By: #### B GLU #### [facility] [address] [place] [address] Hemoglobin (Bld) [Mass/Vol] 13.1 g/dL Normal 13.0-18.0 [facility] Comment on above: Performed By: #### B GLU #### [facility] [address] [place] [address] Lymphocytes (Bld) [#/Vol] 1.0 10*3/uL Normal 1.0-4.3 [facility] Comment on above: Performed By: #### B GLU #### [place] [address] [place] [address] Lymphocytes/100 WBC (Bld) 10.8 % Low 20.0-40.0 [facility] Comment on above: Performed By: #### B GLU #### [place] [address] [place] [address] MCH (RBC) [Entitic mass] 30.9 pg Normal 26.0-34.0 [facility] Comment on above: Performed By: #### B GLU #### [place] [address] [place] [address] MCHC 33.9 % Normal 32.0-36.0 [facility] Comment on above: Performed By: #### B GLU #### [facility] [address] [place] [address] MCV (RBC) [Entitic vol] 91.1 fL Normal 80.0-98.0 [facility] Comment on above: Performed By: #### B GLU #### [place] [address] [place] [address] Monocytes (Bld) [#/Vol] 0.9 10*3/uL High 0.0-0.8 [facility] Comment on above: Performed By: #### B GLU #### [facility] [address] [place] [address] Monocytes/100 WBC (Bld) 9.4 % Normal 2.0-10.0 [facility] Comment on above: Performed By: #### B GLU #### [facility] [address] [place] [address] Platelet mean volume (Bld) [Entitic vol] 9.9 fL Normal 7.4-10.4 [facility] Comment on above: Performed By: #### B GLU #### [facility] [address] [place] [address] Platelets (Bld) [#/Vol] 163 10*3/uL Normal 140-440 [facility] Comment on above: Performed By: #### B GLU #### [facility] [address] [place] [address] RBC (Bld) [#/Vol] 4.23 10*6/uL Low 4.40-5.90 [facility] Comment on above: Performed By: #### B GLU #### [facility] [address] [place] [address] WBC (Bld) [#/Vol] 9.1 10*3/uL Normal 3.6-10.7 [facility] Comment on above: Performed By: #### B GLU #### [facility] [address] [place] [address] Lactic Acidon 03-19-2021 Lactate [Moles/Vol] 2.3 mmol/L Critically high 0.7-2.0 [facility] Comment on above: Performed By: #### L ACT3 ####[facility] [place] [address] Lactic Acid, Plasmaon 2020 Lactate [Moles/Vol] 2.3 mmol/L Critically high 0.7 - 2.0 mmol/L [facility] No Panel Informationon 03-19 Interpretation and review of laboratory results Abnormal [facility] Test Performed by [facility], [address] [place] [address] [facility] RBC MORPHOLOGYon 03-19-2021 Poikilocytes Slight [facility] RBC (Bld) [#/Vol] ABNORMAL [facility] Tear Drop Cells Slight [facility] RBC Morphologyon 11-19-2021 Ovalocytes Slight Normal [facility] Comment on above: Performed By: #### B GLU #### [facility] [address] [place] [address] Poikilocytosis Slight Normal [facility] Comment on above: Performed By: #### B GLU #### [facility] [address] [place] [address] Polychromasia Slight Normal [facility] Comment on above: Performed By: #### B GLU #### [facility] [address] [place] [address] RBC morphology finding Nom (Bld) ABNORMAL Normal [facility] Comment on above: Performed By: #### B GLU #### [facility] [address] [place] [address] Tear Drop Forms Slight Normal [facility] Comment on above: Performed By: #### B GLU #### [facility] [address] [place] [address] Respiratory Panel, Molecular , with COVID-19 (Restricted: peds pts or suitable admitted adults)on 03-19-2021 Interpretation and review of laboratory results Abnormal [facility] Respiratory Panel Molecular, with COVID POSITIVE: Respiratory Syncytial Virus DETECTED. _ Expected Result: Not Detected [employer] Upper Respiratory Pathogens PCR Panel can detect the following targets: SARS-CoV-2, Adenovirus, Coronavirus 229E, Coronavirus HKU1, Coronavirus NL63, Coronavirus OC43, Human Metapneumovirus, Human Rhinovirus/Enteroviru s, Influenza A, Influenza B, Parainfluenza Virus 1, Parainfluenza Virus 2, Parainfluenza Virus 3, Parainfluenza Virus 4, Respiratory Syncytial Virus, Bordetella pertussis, Bordetella parapertussis, Chlamydia pneumoniae, Mycoplasma pneumoniae. Method: Real-time PCR. Abnormal [facility] Test Performed by [facility], [address] [place] [id number] [place] [address] LAB [facility] SARS-CoV-2, Flu A/B and RSVo n 03-19-2021 SARS-CoV-2 (COVID-19) RNA SHIRLEY+probe Ql (Unsp spec) SARS-CoV-2 --> Status: F Not Detected. Flu A PCR --> Status: F Not Detected. Flu B PCR --> Status: F Not Detected. RSV PCR --> Status: F DETECTED Expected Result: Not Detected _ Method: Real-time, RT-PCR This assay was developed by [employer] and distributed under an Emergency Use Authorization (EUA) granted by the FDA for the qualitative detection of nucleic acids from SARS-CoV-2, Influenza A, Influenza B, and Respiratory Syncytial Virus. Provider and patient fact sheets can be found at https://www.[facility].gov/ edia/758280/download and https://www.[facility].gov/ edia/829674/download. Expected Result: Not Detected _ Method: Real-time, RT-PCR This assay was developed by [employer] and distributed under an Emergency Use Authorization (EUA) granted by the FDA for the qualitative detection of nucleic acids from SARS-CoV-2, Influenza A, Influenza B, and Respiratory Syncytial Virus. Provider and patient fact sheets can be found at https://www.[facility].gov/ [employer]/151729/download and https://www.[facility].gov/ [employer]/836623/download. Abnormal [facility] Comment on above: Performed By: #### C VFLR #### [facility] [address] [place] [address] , [address] Troponinon 03-19-2021 Troponin I.cardiac [Mass/Vol] 0.017 ng/mL 0.000 - 0.034 ng/mL [facility] Comment on above: . Test Performed by [facility], [address] [place], [place] [address] [facility] Troponin Ion 03-19-2021 Troponin I.cardiac [Mass/Vol] 0.017 ng/mL Normal 0.000-0.034 [facility] Comment on above: Result Comment: . Performed By: #### B MP3, TROPN ####[facility] [place] [address] XR CHEST PORTABLEon 03-19-20 Patient Name: KATHYA HOOPER Diagnostic Radiology ACCESSION EXAM DATE/TIME PROCEDURE ORDERING PROVIDER [id number] 03/19/2021 17:10 EST CR Chest Portable [id number] -NESHEIM, BRADY CPT code 98270 Reason For Exam (CR Chest Portable) hypoxia [...] MD - 03/19/2021 [facility]: [id number] Radiology ACCESSION EXAM DATE/TIME PROCEDURE ORDERING PROVIDER [id number] 03/19/2021 17:10 EST CR Chest Portable [id number] -NESHEIM, BRADY CPT code 53989 Reason For Exam (CR Chest Portable) hypoxia [...] J Transcribed Date and Time: 03/19/2021 5:22 [facility] Work Phone: Radiology Study observation (narrative) [facility] Work Phone: XR CHEST PORTABLEOrdered By: Keshawn Simpson on 03-19-2021 [facility] Work Phone: Basic Metabolic Panelon 03-01 Calcium [Mass/Vol] 8.4 mg/dL Normal 8.4-10.4 [facility] Comment on above: Performed By: #### H MAYKEL BMP3 #### [facility] [address] [place] [address] Glucose [Mass/Vol] 110 mg/dL High 70-100 [facility] Comment on above: Performed By: #### H MAYKEL BMP3 #### [facility] [address] [place] [address] Anion gap [Moles/Vol] 7 mmol/L Normal 3-13 [facility] Comment on above: Performed By: #### H MAYKEL BMP3 #### [facility] [address] [place] [address] CO2 [Moles/Vol] 26 mmol/L Normal 22-30 [facility] Comment on above: Performed By: #### Kerri BRAR BMP3 #### [facility] [address] [place] [address] Creatinine [Mass/Vol] 0.54 mg/dL Normal 0.52-1.25 [facility] Comment on above: Performed By: #### H MAYKEL BMP3 #### [facility] [address] [place] [address] eGFR OTHER > 90.0 Normal >60 [facility] Comment on above: Result Comment: KDIG [...] Performed By: #### H MAYKEL BMP3 #### [facility] [address] [place] [address] GFR/1.73 sq M.predicted among blacks MDRD (S/P/Bld) [Vol rate/Area] mL/min/{1.73_m2} Normal >60 [facility] Comment on above: Performed By: #### H EMDF, BMP3 #### [facility] [address] [place] [address] Urea nitrogen [Mass/Vol] 18 mg/dL High 7-17 [facility] Comment on above: Performed By: #### H EMDF, BMP3 #### [facility] [address] [place] [address] Potassium [Moles/Vol] 3.9 mmol/L Normal 3.5-5.1 [facility] Comment on above: Performed By: #### H EMDF, BMP3 #### [facility] [address] [place] [address] Chloride [Moles/Vol] 104 mmol/L Normal 98-107 [facility] Comment on above: Performed By: #### H EMDF, BMP3 #### [facility] [address] [place] [address] Sodium [Moles/Vol] 137 mmol/L Normal 135-145 [facility] Comment on above: Performed By: #### H EMDF, BMP3 #### [facility] [address] [place] [address] Anion gap [Moles/Vol] 7 mmol/L 3 - 13 mmol/L [facility] Calcium [Mass/Vol] 8.4 mg/dL 8.4 - 10. 4 mg/dL [facility] Chloride [Moles/Vol] 104 mmol/L 98 - 10 7 mmol/L [facility] CO2 [Moles/Vol] 26 mmol/L 22 - 30 mmol/L [facility] Creatinine [Mass/Vol] 0.54 mg/dL 0.52 - 1.25 mg/dL [facility] EGFR IF NonAfrican Algerian >90.0 >60 mL/min [facility] Comment on above: KDIGO guidelines [...] 110 mg/dL High 70 - 100 mg/dL [facility] Interpretation and review of laboratory results Abnormal [facility] Potassium [Moles/Vol] 3.9 mmol/L 3.5 - 5.1 mmol/L [facility] Sodium [Moles/Vol] 137 mmol/L 135 - 145 mmol/L [facility] Urea nitrogen (BldV) [Mass/Vol] 18 mg/dL High 7 - 17 mg/dL [facility] Brain Natriuretic Peptideon 03-18-2021 Interpretation and review of laboratory results Abnormal [facility] Natriuretic peptide B (Bld) [Mass/Vol] 710 pg/mL High 0 - 125 pg/mL [facility] Test Performed by [facility], [address] [place] [address] LAB [facility] CBC Auto Differentialon 03-01 Absolute [...] (Stl) 13.6 g/dL 13.0 - 18.0 g/dL [facility] Interpretation and review of laboratory results Abnormal [...] [#/Vol] 8.8 10*3/uL 3.6 - 10.7 10*3/uL [facility] Test Performed by [facility], [address] [place], [place], [place] [id number] [place] [address] LAB [facility] COVID-19, Flu A/B, and RSV C [facility] 03-18-2021 Influenza A by PCR Not detected [facility] A Influenza B by PCR Not detected [facility] A Interpretation and review of laboratory results Abnormal [facility] RSV PCR DETECTED Expected Result: Not Detected _ Method: Real-time, RT-PCR This assay was developed by [employer] and distributed under an Emergency Use Authorization (EUA) granted by the FDA for the qualitative detection of nucleic acids from SARS-CoV-2, Influenza A, Influenza B, and Respiratory Syncytial Virus. Provider and patient fact sheets can be found at https://www.[facility].gov/m edia/854212/download and https://www.fda.gov/m edia/487123/download. Abnormal [facility] SARS-CoV-2 (COVID-19) RNA SHIRLEY+probe Ql (Unsp spec) Not detected [facility] Test Performed by [facility], [address] [facility] [place], [place] [id number] [place] [address] LAB [facility] CR Chest Portableon 03-18-20 21 CR Chest Portable Patient Name: KATHYA HOOPER Diagnostic Radiology ACCESSION EXAM DATE/TIME PROCEDURE ORDERING PROVIDER [id number] 03/18/2021 15:30 EST CR Chest Portable [id number] -BOO CASTRO CPT code 59048 Reason For Exam (CR Chest Portable) sob, [...] Transcribed Date and Time: 03/18/2021 3:35 Normal [facility] CTA Chest W WO (PE study)on 03-18-2021 Patient Name: KATHYA HOOPER Computed Tomography ACCESSION EXAM DATE/TIME PROCEDURE ORDERING PROVIDER [id number] 03/18/2021 16:27 EST CTA Chest w/ + w/o [id number] -Alyson CASTRO CPT code 48038 Q9967 Reason For Exam (CTA Chest w/ [...] Date and Time: 03/18/2021 4:36 [facility] Malcolm Michaels MD - 03/18/2021 Patient Name: KATHYA HOOPER Computed Tomography ACCESSION EXAM DATE/TIME PROCEDURE ORDERING PROVIDER [id number] 03/18/2021 16:27 EST CTA Chest w/ + w/o [id number] [facility] CPT code 06082 Q9967 Reason For Exam (CTA Chest w/ [...] Tomography ACCESSION EXAM DATE/TIME PROCEDURE ORDERING PROVIDER [id number] 03/18/2021 16:27 EST CTA Chest w/ + w/o [id number] -CASTROAlyson TIM CPT code 31113 Q9967 Reason For Exam (CTA Chest w/ [...] Transcribed Date and Time: 03/18/2021 4:36 Normal [facility] CTA HEAD NECK W WO CONTRASTo n 03-18-2021 Patient Name: KATHYA HOOPER Computed Tomography ACCESSION EXAM DATE/TIME PROCEDURE ORDERING PROVIDER [id number] 03/18/2021 16:26 EST CTA Head/Neck w/ + w/o [id number] -alyson CASTRO CPT code 69545 17416 Q9967 Reason For Exam (CTA Head/Neck w/ + w/o contrast) AMS, dysphasia and ?aphasia possibly since yesterday- very poor historian from senior care w/ unclear prior deficits - here w/ [...] Tomography ACCESSION EXAM DATE/TIME PROCEDURE ORDERING PROVIDER [id number] 03/18/2021 16:26 EST CTA Head/Neck w/ + w/o [id number] -alyson CASTRO CPT code 37664 93420 Q9967 Reason For Exam (CTA Head/Neck w/ + w/o contrast) AMS, dysphasia and ?aphasia possibly since yesterday- very poor historian from senior care w/ unclear prior deficits - here w/ [...] Tomography ACCESSION EXAM DATE/TIME PROCEDURE ORDERING PROVIDER [id number] 03/18/2021 16:26 EST CTA Head/Neck w/ + w/o [id number] -alyson CASTRO CPT code 39149 62203 Q9967 Reason For Exam (CTA Head/Neck w/ + w/o contrast) AMS, dysphasia and ?aphasia possibly since yesterday- very poor historian from senior care w/ unclear prior deficits - here w/ [...] Transcribed Date and Time: 03/18/2021 4:52 Normal [facility] ED Provider Noteon ED Provider Note [facility] EMERGENCY DEPARTMENT ENCOUNTER Pt Name: Kathya [...] dependant for dysphagia, presenting via EMS from [facility] with complaint of AMS, garbled speech, [...] Vaping Us (more content not included)... Normal [facility] Hemogram w/ Autodiffon 03-18 Abs Baso Cnt 0.0 10*3/uL Normal 0.0-0.2 [facility] Comment on above: Performed By: #### H EMDMaurice BMP3 #### [facility] [address] [place] [address] Abs Neutrophile Cnt 7.3 10*3/uL High 1.8-7.0 [facility] Comment on above: Performed By: #### H EMDF BMP3 #### [facility] [address] [place] [address] Basophils/100 WBC (Bld) 0.5 % Normal 0.0-2.0 [facility] Comment on above: Performed By: #### H EMDF, BMP3 #### [facility] [address] [place] [address] Eosinophils (Bld) [#/Vol] 0.0 10*3/uL Normal 0.0-0.5 [facility] Comment on above: Performed By: #### H EMDF, BMP3 #### [facility] [address] [place] [address] Eosinophils/100 WBC (Bld) 0.1 % Low 1.0-6.0 [facility] Comment on above: Performed By: #### H EMDF, BMP3 #### [facility] [employer] [address] [place] [address] Erythrocyte distribution width (RBC) [Ratio] 12.9 % Normal 11.5-14.5 [facility] Comment on above: Performed By: #### H EMDF, BMP3 #### [facility] [employer] [address] [place] [address] Granulocytes/100 WBC (Bld) 82.8 % High 40.0-80.0 [facility] Comment on above: Performed By: #### H EMDF, BMP3 #### [facility] [employer] [address] [place] [address] Hematocrit (Bld) [Volume fraction] 38.3 % Low 40.0-52.0 [facility] Comment on above: Performed By: #### H EMDF, BMP3 #### [facility] [address] [place] [address] Hemoglobin (Bld) [Mass/Vol] 13.6 g/dL Normal 13.0-18.0 [facility] Comment on above: Performed By: #### H EMDF, BMP3 #### [facility] [address] [place] [address] Lymphocytes (Bld) [#/Vol] 0.7 10*3/uL Low 1.0-4.3 [facility] Comment on above: Performed By: #### H EMDF, BMP3 #### [facility] [address] [place] [address] Lymphocytes/100 WBC (Bld) 7.6 % Low 20.0-40.0 [facility] Comment on above: Performed By: #### H EMDF, BMP3 #### [facility] [address] [place] [address] MCH (RBC) [Entitic mass] 32.0 pg Normal 26.0-34.0 [facility] [employer] Comment on above: Performed By: #### H EMDF, BMP3 #### [facility] [employer] [address] [place] [address] MCHC 35.4 % Normal 32.0-36.0 [facility] Comment on above: Performed By: #### H EMDF, BMP3 #### [facility] [address] [place] [address] MCV (RBC) [Entitic vol] 90.2 fL Normal 80.0-98.0 [facility] Comment on above: Performed By: #### H EMDF, BMP3 #### [facility] [address] [place] [address] Monocytes (Bld) [#/Vol] 0.8 10*3/uL Normal 0.0-0.8 [facility] Comment on above: Performed By: #### H EMDF, BMP3 #### [facility] [address] [place] [address] Monocytes/100 WBC (Bld) 9.0 % Normal 2.0-10.0 [facility] Comment on above: Performed By: #### H EMDF, BMP3 #### [facility] [address] [place] [address] Platelet mean volume (Bld) [Entitic vol] 9.8 fL Normal 7.4-10.4 [facility] Comment on above: Performed By: #### H EMDF, BMP3 #### [facility] [address] [place] [address] Platelets (Bld) [#/Vol] 129 10*3/uL Low 140-440 [facility] Comment on above: Performed By: #### H EMDF, BMP3 #### [facility] [address] [place] [address] RBC (Bld) [#/Vol] 4.24 10*6/uL Low 4.40-5.90 [facility] Comment on above: Performed By: #### H EMDF, BMP3 #### [facility] [address] [place] [address] WBC (Bld) [#/Vol] 8.8 10*3/uL Normal 3.6-10.7 [facility] Comment on above: Performed By: #### H EMDF, BMP3 #### [facility] [address] [place] [address] MAGNESIUMon 11-18-2021 Magnesium [Mass/Vol] 2.0 mg/dL 1.6 - 2 .3 mg/dL [facility] Magnesiumon 03-18-2021 Magnesium [Mass/Vol] 2.0 mg/dL Normal 1.6-2.3 [facility] Comment on above: Performed By: #### H EMDMaurice, BMP3 #### [facility] [address] [place] [address] NT pro BNPon 03-18-2021 Natriuretic peptide B (Bld) [Mass/Vol] 710 pg/mL High 0-125 [facility] Comment on above: Performed By: #### H MAYKEL, BMP3 #### [facility] [address] [place] [address] No Panel Informationon 03-18 Test Performed by [facility], [facility] [address] [facility] PROTIME/INR & PTTon 03-18-20 aPTT Coag (Bld) [Time] 30.7 s High 20.0 - 30.5 s [facility] Comment on above: NOTE: The therapeuti c time for Heparin anticoagulation, based on Xa activity inhibition, is an APTT of 46-80 seconds. INR Coag (Bld) [Relative time] 1.1 {INR} [facility] Comment on above: Recommended Anticoag [...] Interpretation and review of laboratory results Abnormal [facility] PT Coag (PPP) [Time] 11.4 s 9.0 - 12.0 s [facility] Comment on above: . Test Performed by [facility], [facility] [address] LAB [facility] Protime AND APTTon aPTT Coag (Bld) [Time] 30.7 s High 20.0-30.5 [facility] Comment on above: Result Comment: NOTE : The therapeutic time for Heparin anticoagulation, based on Xa activity inhibition, is an APTT of 46-80 seconds. Performed By: #### H MITALI BRAR #### [facility] [address] [place] [address] INR 1.1 Normal 0.9-1.1 [facility] Comment on above: Result Comment: Yefri [...] Performed By: #### H MITALI BRAR #### [facility] [address] [place] [address] PT Coag (PPP) [Time] 11.4 s Normal 9.0-12.0 [facility] Comment on above: Result Comment: . Performed By: #### H MITALI BRAR #### [facility] [address] [place] [address] SARS-CoV-2, Flu A/B and RSVo n 03-18-2021 SARS-CoV-2 (COVID-19) RNA SHIRLEY+probe Ql (Unsp spec) SARS-CoV-2 --> Status: F Not Detected. Flu A PCR --> Status: F Not Detected. Flu B PCR --> Status: F Not Detected. RSV PCR --> Status: F DETECTED Expected Result: Not Detected _ Method: Real-time, RT-PCR This assay was developed by [employer] and distributed under an Emergency Use Authorization (EUA) granted by the FDA for the qualitative detection of nucleic acids from SARS-CoV-2, Influenza A, Influenza B, and Respiratory Syncytial Virus. Provider and patient fact sheets can be found at https://www.fda.gov/m edia/927058/download and https://www.fda.gov/m edia/003893/download. Expected Result: Not Detected _ Method: Real-time, RT-PCR This assay was developed by [employer] and distributed under an Emergency Use Authorization (EUA) granted by the FDA for the qualitative detection of nucleic acids from SARS-CoV-2, Influenza A, Influenza B, and Respiratory Syncytial Virus. Provider and patient fact sheets can be found at https://www.fda.gov/m edia/465524/download and https://www.fda.gov/m edia/868633/download. Abnormal [facility] Comment on above: Performed By: #### C VFLR #### [facility] [address] [place] [address] , [address] TS GELon 03-18-2021 TS GEL ABO Group: O Rh, Gel: POS Antibody Screen Gel: NEG Normal [facility] Comment on above: Performed By: #### T SGL #### [facility] [employer] TYPE AND SCREENon 03-18-2021 ABO Grouping O [facility] Rh Type Positive [facility] Test Performed by [facility], [address], [place], [place] [address] [facility] XR CHEST PORTABLEon 03-18-20 Patient Name: KATHYA HOOPER Diagnostic Radiology ACCESSION EXAM DATE/TIME PROCEDURE ORDERING PROVIDER [id number] 03/18/2021 15:30 EST CR Chest Portable [id number] -BOO CASTRO CPT code 13649 Reason For Exam (CR Chest Portable) sob, [...] KRIKOR Transcribed Date and Time: 03/18/2021 3:35 Alejandra Reid MD - 03/18/2021 Patient Name: KATHYA HOOPER Diagnostic Radiology ACCESSION EXAM DATE/TIME PROCEDURE ORDERING PROVIDER [id number] 03/18/2021 15:30 EST CR Chest Portable [id number] -BOO CASTRO CPT code 67497 Reason For Exam (CR Chest Portable) sob, [...] KRIKOR Transcribed Date and Time: 03/18/2021 3:35 [facility] Work Phone: Radiology Study observation (narrative) [facility] Work Phone: XR CHEST PORTABLEOrdered By: Alejandra Munoz on 03-18-2021 [facility] Work Phone: ED Provider Noteon ED Provider Note - Attestation signed by Edwin Montejo MD at 10/31/2020 7:09 AM Emergency Medicine Attending Note This patient was seen and treated independently by the research professional. I was present and available in [...] Strain: ? (more content not included)... Normal [facility] [place] GI TUBE EVALUATION W CONT RASTOrdered By: Helen Toledo on 10-30-2020 Patient Name: KATHYA HOOPER Fluoroscopy ACCESSION EXAM DATE/TIME PROCEDURE ORDERING PROVIDER [id number] 10/30/2020 15:07 EDT RF Intro Long GI Tube w/ KRISTA TOLEDO, HELEN Rojas CPT code 28627 Reason For Exam (RF Intro Long GI [...] J Transcribed Date and Time: 10/30/2020 4:06 [facility] Work Phone: [facility], [facility] Incoming Radiology Results From [facility] - 10/30/2020 4:07 PM EDT Patient Name: KATHYA HOOPER Fluoroscopy ACCESSION EXAM DATE/TIME PROCEDURE ORDERING PROVIDER [id number] 10/30/2020 15:07 EDT RF Intro Long GI Tube w/ KRISTA TOLEDO AMY L Fluoro CPT code 33184 Reason For Exam (RF Intro Long GI [...] J Transcribed Date and Time: 10/30/2020 4:06 [facility] Work Phone: [facility] Work Phone: RF Intro Long GI Tube w/ Flu oroon 10-30-2020 RF Intro Long GI Tube w/ Fluoro Patient Name: KATHYA HOOPER Fluoroscopy ACCESSION EXAM DATE/TIME PROCEDURE ORDERING PROVIDER [id number] 10/30/2020 15:07 EDT RF Intro Long GI Tube w/ KRISTA TOLEDO AMY L Fluoro CPT code 34387 Reason For Exam (RF Intro Long GI [...] J Transcribed Date and Time: 10/30/2020 4:06 [facility] ED Provider Noteon ED Provider Note [facility] ED EMERGENCY DEPARTMENT ENCOUNTER Pt Name: [...] Gatherings with Friends and Family: ? Attends Muslim Services: ? Active Member of Clubs or [...] Soft, non-distended (more content not included)... Normal [facility] [place] GI TUBE EVALUATION W CONT RASTOrdered By: Elizabeth Moura on 09-22-2020 Patient Name: KATHYA HOOPER Fluoroscopy ACCESSION EXAM DATE/TIME PROCEDURE ORDERING PROVIDER [id number] 09/22/2020 04:09 EDT RF Intro Long GI Tube w/ 5816 -ELIZABETH MOURA CPT code 71599 Reason For Exam (RF Intro Long GI [...] Phone: [facility], [facility] Incoming Radiology Results From [facility] - 09/22/2020 5:11 AM EDT Patient Name: KATHYA HOOPER Fluoroscopy ACCESSION EXAM DATE/TIME PROCEDURE ORDERING PROVIDER [id number] 09/22/2020 04:09 EDT RF Intro Long GI Tube w/ 5816 -ELIZABETH MOURA CPT code 33366 Reason For Exam (RF Intro Long GI [...] on --- Final --- Dictating Physician: MD JERNIAGN JEFFREY Signed Date and Time: 09/22/2020 5:09 am Signed by: MD JERNIGAN JEFFREY Transcribed Date and Time: 09/22/2020 5:11 [facility] Work Phone: [facility] Work Phone: RF Intro Long GI Tube w/ Flu oroon 09-22-2020 RF Intro Long GI Tube w/ Fluoro Patient Name: KATHYA HOPOER Fluoroscopy ACCESSION EXAM DATE/TIME PROCEDURE ORDERING PROVIDER [id number] 09/22/2020 04:09 EDT RF Intro Long GI Tube w/ 5816 -ELIZABETH MOURA CPT code 89665 Reason For Exam (RF Intro Long GI [...] Transcribed Date and Time: 09/22/2020 5:11 Normal [facility] ED Provider Noteon ED Provider Note [facility] ED EMERGENCY DEPARTMENT ENCOUNTER Pt Name: [...] otherwise acutely negative except as in the [place]. PAST MEDICAL HISTORY Past Medical History: Diagnosis [...] (AQUAPHOR) ointment Apply topically as needed. Balsam Froilan-Drifton Oil (VENELEX) OINT ointment Apply topically every [...] file Gets together: Not on file Attends scientology service: Not on file Active member of [...] for level (more content not included)... Normal [facility] FL GI TUBE EVALUATION W BRANDON Warner 06-26-2020 Patient Name: KATHYA HOOPER Fluoroscopy ACCESSION EXAM DATE/TIME PROCEDURE ORDERING PROVIDER [id number] 06/26/2020 20:20 EST RF Intro Long GI Tube w/ [id number] -GOMBASH ABELARDO Fluoro CPT code 03497 Reason For Exam (RF Intro Long GI [...] Time: 06/26/2020 9:16 [facility] Work Phone: [facility] From [facility] - 06/26/2020 9:16 PM EST Patient Name: KATHYA HOOPER Fluoroscopy ACCESSION EXAM DATE/TIME PROCEDURE ORDERING PROVIDER [id number] 06/26/2020 20:20 EST RF Intro Long GI Tube w/ 470101 -GOMBMYRNA PRAKASHER Fluoro CPT code 46426 Reason For Exam (RF Intro Long GI [...] Fluoroscopy ACCESSION EXAM DATE/TIME PROCEDURE ORDERING PROVIDER [id number] 06/26/2020 20:20 EST RF Intro Long GI Tube w/ 307443 -ABELARDO RIOS CPT code 34874 Reason For Exam (RF Intro Long GI [...] Transcribed Date and Time: 06/26/2020 9:16 Normal [facility] Clinical Summary: HMSPatient IDon 05-22-2019 WOP [facility] Work Phone: Office Visit: New - visi t with practice, Rm: 2on 05-22-2019 NEGATED: Highlighted rowCT scan history of the right lower extremity on 05/16/2019 at [facility] Work Phone: NEGATED: Highlighted rowTobacco smoking status NHIS current someday smoker [facility] Work Phone: NEGATED: Highlighted rowxray history of the pelvis with hip on 05/11/2019 at [facility] , of the pelvis on 05/13/2019 at [facility] Work Phone: CT LOWER EXTREMITY RIGHT WO CONTRASTOrdered By: Elizabeth Moura on 05-16-2019 Patient Name: KATHYA HOOPER ---CT--- Exam Date/Time 05/16/2019 21:10:[address] Low Ext w/o Contrast Right Ordering Physician ELIZABETH BARKER Accession Number [id number] CPT4 Codes 40670 () Reason For Exam right hip pain, [...] RISA Transcribed Date and Time: 05/16/2019 9:24 [facility] Work Phone: [facility] Results From [facility] - 05/16/2019 9:24 PM EST Patient Name: KATHYA HOOPER ---CT--- Exam Date/Time 05/16/2019 21:10:[address] Low Ext w/o Contrast Right Ordering Physician ELIZABETH BARKER Accession Number [id number] CPT4 Codes 84902 () Reason For Exam right hip pain, [...] Time: 05/16/2019 9:23 pm Signed by: MD JHONSON RISA Transcribed Date and Time: 05/16/2019 9:24 [facility] Work Phone: Differential,Body Fluidson 0 09-27-2018 Other Cells 46 % Normal [facility] Comment on above: Result Comment: Bloo dy specimen with reactive mesothelial cells and chronic inflammation with occasional hemophagocytosis. seat nailer Performed By: #### H EMDF, PT, BMP3M, PHOS3, MG3, CK3 #### [facility] [address] [address] #### VD25H #### [facility] [address] [place] [address] CULTURE AND STAIN - FLUIDon 09-25-2018 CULTURE AND STAIN - FLUID CULTURE & STAIN - FLUID --> Status: F No growth at 5 days. STAIN GRAM --> Status: F Moderate polymorphonuclear cells/lpf. Moderate mononuclear cells/lpf No organisms seen. Cytocentrifugation performed. Moderate mononuclear cells/lpf No organisms seen. Cytocentrifugation performed. Normal [facility] Comment on above: Performed By: #### H EMDF, PT, BMP3M, PHOS3, MG3, CK3 #### [address] [place], [place] #### VD25H #### [facility] [address] [place] [address] Cell Count,Body Fluidon - Nucleated Cells 2391 {cells}/uL Normal [facility] Comment on above: Performed By: #### H EMDF, PT, BMP3M, PHOS3, MG3, CK3 #### [place] [address] [address] [place], [place] #### VD25H #### [facility] [address] [place] [address] [place] [address] {RBC}/uL Normal [facility] Comment on above: Performed By: #### H EMDF, PT, BMP3M, PHOS3, MG3, CK3 #### [facility] [address] [place], [place] #### VD25H #### [facility] [address] [place] [address] Fluid Type Thoracentesis Normal [facility] Comment on above: Performed By: #### H EMDF, PT, BMP3M, PHOS3, MG3, CK3 #### [address] [place], [place] #### VD25H #### [facility] [address] [place] [address] Differential,Body Fluidson 0 09-25-2018 Lymphocytes/100 WBC (Bld) 28 % Normal [facility] Comment on above: Performed By: #### H EMDF, PT, BMP3M, PHOS3, MG3, CK3 #### [facility] [address] [place], [place] #### VD25H #### [facility] [address] [place] [address] Monocytes/100 WBC (Bld) 1 % Normal [facility] Comment on above: Performed By: #### H EMDF, PT, BMP3M, PHOS3, MG3, CK3 #### [address] [place], [place] #### VD25H #### [facility] [address] [place] [address] Neutrophils/100 WBC (Bld) 25 % Normal [facility] Comment on above: Performed By: #### H EMDF, PT, BMP3M, PHOS3, MG3, CK3 #### [place] [place], [place] #### VD25H #### [facility] [address] [place] [address] Cells Counted for Diff 100 Normal [facility] Comment on above: Performed By: #### H EMDF, PT, BMP3M, PHOS3, MG3, CK3 #### [place] [place], [place] #### VD25H #### [facility] [address] [place] [address] LDH, Body Fluidon 09-25-2018 LDH, Body Fluid 174 U/L Normal No Range [facility] Comment on above: Performed By: #### H EMDF, PT, BMP3M, PHOS3, MG3, CK3 #### [place] [place], [place] #### VD25H #### [facility] [address] [place] [address] Protein, Total Body Fluidon 09-25-2018 Protein,Total-Body Fld 3.4 g/dL Normal No Range [facility] Comment on above: Performed By: #### H EMDF, PT, BMP3M, PHOS3, MG3, CK3 #### [facility] [address] [place] [address] #### VD25H #### [facility] [address] [place] [address] US Thora-Aspir Pleura w/ Evelin geon 09-25-2018 US Thora-Aspir Pleura w/ Image Patient Name: KATHYA HOOPER Ultrasound Exam Date/Time 09/25/2018 13:23:41 EDT Exam US Thora-Aspir Pleura w/ Image Ordering Physician SALO DAVIS Accession Number [id number] CPT4 Codes 02811 () Reason For Exam pleural effusion Report [...] Transcribed Date and Time: 09/25/2018 3:07 Normal [facility] CULTURE MYCOBACTERIAon 09-03 CULTURE MYCOBACTERIA CULTURE MYCOBACTERI A --> Status: F No acid-fast bacilli isolated after 6 [address] incubation[address] [facility] Comment on above: Performed By: #### H EMDF, PT, BMP3M, PHOS3, MG3, CK3 #### [facility] [address] [place] [address] #### VD25H #### [facility] [address] [place] [address] CULTURE URINEon 08-23-2018 CULTURE URINE CULTURE URINE --> Status: F No growth (<1,000 CFU/ml). Normal [facility] Comment on above: Order Comment: Speci men Source Comment:Urine, clean catch Performed By: #### H EMDF, PT, BMP3M, PHOS3, MG3, CK3 #### [facility] [address] [place] [address] #### VD25H #### [facility] [address] [place] [address] CR Chest Portableon 08-23-19 19 CR Chest Portable Patient Name: KATHYA HOOPER Diagnostic Radiology Exam Date/Time 08/22/2018 07:07:07 EDT Exam CR Chest Portable Ordering Physician HIRAM ONEIL Accession Number [id number] CPT4 Codes 01765 () Reason For Exam dyspnea Report Portable [...] Transcribed Date and Time: 08/22/2018 7:31 Normal [facility] Glucose,Bedsideon 08-22-2018 Glucose mass conc 127 mg/dL High 70-100 [facility] Comment on above: Result Comment: Test performed by glucose meter. Results may be 10%-15% lower than serum/plasma values. (CLIA ID [id number]) Performed By: #### H EMDF, PT, BMP3M, PHOS3, MG3, CK3 #### [facility] [address] [place], [place] #### VD25H #### [facility] [address] [place] [address] Urinalysis,Macroon 9 Appearance Nom (U) clear Normal Clear [facility] Comment on above: Performed By: #### H EMDF, PT, BMP3M, PHOS3, MG3, CK3 #### [facility] [address] [place], [place] #### VD25H #### [facility] [address] [place] [address] Bilirubin,Ur Negative Normal Negative [facility] Comment on above: Performed By: #### H EMDF, PT, BMP3M, PHOS3, MG3, CK3 #### [facility] [address] [place], [place] #### VD25H #### [facility] [address] [place] [address] Color Nom (U) dk.yel Normal Lt. Yellow [facility] Comment on above: Performed By: #### H EMDF, PT, BMP3M, PHOS3, MG3, CK3 #### [facility] [address] [place], [place] #### VD25H #### [facility] [address] [place] [address] Glucose Ql (U) NORM Normal Negative [facility] Comment on above: Performed By: #### H EMDF, PT, BMP3M, PHOS3, MG3, CK3 #### [facility] [address] [place], [place] #### VD25H #### [facility] [address] [place] [address] Ketone,Urine Negative Normal Negative [facility] Comment on above: Performed By: #### H EMDF, PT, BMP3M, PHOS3, MG3, CK3 #### [facility] [address] [place], [place] #### VD25H #### [facility] [address] [place] [address] Nitrite Ql (U) Negative Normal Negative [facility] Comment on above: Performed By: #### H EMDF, PT, BMP3M, PHOS3, MG3, CK3 #### [address] [place] [place], [place] #### VD25H #### [facility] [address] [place] [address] Occult Blood,Ur Negative Normal Negative [facility] Comment on above: Performed By: #### H EMDF, PT, BMP3M, PHOS3, MG3, CK3 #### [place] [place], [place] #### VD25H #### [facility] [address] [place] [address] pH (U) 8.0 Normal 5.0-8.0 [facility] Comment on above: Performed By: #### H EMDF, PT, BMP3M, PHOS3, MG3, CK3 #### [place] [place], [place] #### VD25H #### [facility] [address] [place] [address] Protein mass conc (U) Negative Normal Negative [facility] Comment on above: Performed By: #### H EMDF, PT, BMP3M, PHOS3, MG3, CK3 #### [facility] [address] [place], [place] #### VD25H #### [facility] [address] [place] [address] Specific [place],Urine 1.015 Normal 1.005-1.030 [facility] Comment on above: Performed By: #### H EMDF, PT, BMP3M, PHOS3, MG3, CK3 #### [facility] [address], [place] #### VD25H #### [facility] [address] [place] [address] Urobilinogen Qn (U) 1 mg/dL Normal 0-1 [facility] Comment on above: Performed By: #### H EMDF, PT, BMP3M, PHOS3, MG3, CK3 #### [place] [address] [place], [place] #### VD25H #### [facility] [address] [place] [address] WBC #/vol (Bld) Negative Normal Negative [facility] Comment on above: Performed By: #### H EMDF, PT, BMP3M, PHOS3, MG3, CK3 #### [place] [address] [place], [place] #### VD25H #### [facility] [address] [place] [address] Basic Metabolic Panelon 04-2 Calcium mass conc 7.8 mg/dL Low 8.4-10.4 [facility] Comment on above: Performed By: #### H EMDF, PT, BMP3M, PHOS3, MG3, CK3 #### [place] [address] [place], [place] #### VD25H #### [facility] [address] [place] [address] Glucose mass conc 102 mg/dL High 70-100 [facility] Comment on above: Performed By: #### H EMDF, PT, BMP3M, PHOS3, MG3, CK3 #### [place] [address] [place], [place] #### VD25H #### [facility] [address] [place] [address] Anion gap molar conc 0 Normal [facility] Comment on above: Performed By: #### H EMDF, PT, BMP3M, PHOS3, MG3, CK3 #### [address] [address] #### VD25H #### [facility] [address] [place] [address] CO2 molar conc 37 mmol/L High 22-30 [facility] Comment on above: Performed By: #### H EMDF, PT, BMP3M, PHOS3, MG3, CK3 #### [address] #### VD25H #### [facility] [address] [place] [address] Creatinine mass conc 0.46 mg/dL Low 0.52-1.25 [facility] Comment on above: Performed By: #### H EMDF, PT, BMP3M, PHOS3, MG3, CK3 #### [address] [address] #### VD25H #### [facility] [address] [place] [address] GFR/1.73 sq M predicted among blacks MDRD vol rate/area (S/P/Bld) mL/min/{1.73_m2} Normal >60 [facility] Comment on above: Performed By: #### H EMDF, PT, BMP3M, PHOS3, MG3, CK3 #### [address] [address] #### VD25H #### [place] [address] [place] [address] GFR/1.73 sq M predicted among non-blacks MDRD vol rate/area (S/P/Bld) mL/min/{1.73_m2} Normal >60 [facility] Comment on above: Result Comment: Sour ce- MDRD equation with creatinine calibration to IDMS(NKDEP) eGFR not recommended for drug dose adjustment Performed By: #### H EMDF, PT, BMP3M, PHOS3, MG3, CK3 #### [place] [address] [place], [place] #### VD25H #### [facility] [address] [place] [address] Urea nitrogen mass conc 7 mg/dL Normal 7-20 [facility] Comment on above: Performed By: #### H EMDF, PT, BMP3M, PHOS3, MG3, CK3 #### [place] [address] [facility], [place] #### VD25H #### [facility] [address] [place] [address] Potassium molar conc 3.7 mmol/L Normal 3.5-5.1 [facility] Comment on above: Performed By: #### H EMDF, PT, BMP3M, PHOS3, MG3, CK3 #### [place] [address] [place], [place] #### VD25H #### [facility] [address] [place] [address] Chloride molar conc 101 mmol/L Normal 98-107 [facility] Comment on above: Performed By: #### H EMDF, PT, BMP3M, PHOS3, MG3, CK3 #### [place] [address] [place], [place] #### VD25H #### [facility] [address] [place] [address] Sodium molar conc 138 mmol/L Normal 135-145 [facility] Comment on above: Performed By: #### H EMDF, PT, BMP3M, PHOS3, MG3, CK3 #### [place] [address] [facility], [place] #### VD25H #### [facility] [address] [place] [address] CR Chest Portableon 08-22-19 19 CR Chest Portable Patient Name: KATHYA HOOPER Diagnostic Radiology Exam Date/Time 08/21/2018 09:46:47 EDT Exam CR Chest Portable Ordering Physician MALLORY STAPLES Accession Number [id number] CPT4 Codes 29243 () Reason For Exam edema Report PORTABLE [...] Transcribed Date and Time: 08/21/2018 11:14 Normal [facility] CULTURE ANAEROBEon 9 CULTURE ANAEROBE CULTURE ANAEROBE --> Status: F No growth of anaerobes at 5 days. Normal [facility] Comment on above: Order Comment: or co llected Performed By: #### H EMDF, PT, BMP3M, PHOS3, MG3, CK3 #### [address] [address] #### VD25 #### [facility] [address] [place] [address] Glucose,Bedsideon 08-21-2018 Glucose mass conc 124 mg/dL High 70-100 [facility] Comment on above: Result Comment: Test performed by glucose meter. Results may be 10%-15% lower than serum/plasma values. (CLIA ID [id number]) Performed By: #### H EMDF, PT, BMP3M, PHOS3, MG3, CK3 #### [address] [place] #### VD25H #### [facility] [address] [place] [address] Glucose mass conc 135 mg/dL High 70-100 [facility] Comment on above: Result Comment: Test performed by glucose meter. Results may be 10%-15% lower than serum/plasma values. (CLIA ID [id number]) Performed By: #### H EMDF, PT, BMP3M, PHOS3, MG3, CK3 #### [address] #### VD25H #### [facility] [address] [place] [address] Glucose mass conc 131 mg/dL High 70-100 [facility] Comment on above: Result Comment: Test performed by glucose meter. Results may be 10%-15% lower than serum/plasma values. (CLIA ID [id number]) Performed By: #### H EMDF, PT, BMP3M, PHOS3, MG3, CK3 #### [address] #### VD25H #### [facility] [address] [place] [address] Glucose mass conc 112 mg/dL High 70-100 [facility] Comment on above: Result Comment: Test performed by glucose meter. Results may be 10%-15% lower than serum/plasma values. (CLIA ID [id number]) Performed By: #### H EMDF, PT, BMP3M, PHOS3, MG3, CK3 #### [address] #### VD25H #### [facility] [address] [place] [address] Basic Metabolic Panelon 04-2 Anion gap molar conc 4 Normal [facility] Comment on above: Performed By: #### H EMDF, PT, BMP3M, PHOS3, MG3, CK3 #### [address] #### VD25H #### [facility] [address] [place] [address] Calcium mass conc 7.6 mg/dL Low 8.4-10.4 [facility] Comment on above: Performed By: #### H EMDF, PT, BMP3M, PHOS3, MG3, CK3 #### [place] [address] [facility], [place] #### VD25H #### [facility] [address] [place] [address] CO2 molar conc 36 mmol/L High 22-30 [facility] Comment on above: Performed By: #### H EMDF, PT, BMP3M, PHOS3, MG3, CK3 #### [address] [facility], [place] #### VD25H #### [facility] [address] [place] [address] Glucose mass conc 121 mg/dL High 70-100 [facility] Comment on above: Performed By: #### H EMDF, PT, BMP3M, PHOS3, MG3, CK3 #### [place] [address] [facility], [place] #### VD25H #### [facility] [address] [place] [address] Urea nitrogen mass conc 9 mg/dL Normal 7-20 [facility] Comment on above: Performed By: #### H EMDF, PT, BMP3M, PHOS3, MG3, CK3 #### [address] [facility], [place] #### VD25H #### [facility] [address] [place] [address] Creatinine mass conc 0.51 mg/dL Low 0.52-1.25 [facility] Comment on above: Performed By: #### H EMDF, PT, BMP3M, PHOS3, MG3, CK3 #### [place] [address] [facility], [place] #### VD25H #### [facility] [address] [place] [address] GFR/1.73 sq M predicted among blacks MDRD vol rate/area (S/P/Bld) mL/min/{1.73_m2} Normal >60 [facility] Comment on above: Performed By: #### H EMDF, PT, BMP3M, PHOS3, MG3, CK3 #### [address] #### VD25H #### [facility] [address] [place] [address] GFR/1.73 sq M predicted among non-blacks MDRD vol rate/area (S/P/Bld) mL/min/{1.73_m2} Normal >60 [facility] Comment on above: Result Comment: Sour ce- MDRD equation with creatinine calibration to IDMS(NKDEP) eGFR not recommended for drug dose adjustment Performed By: #### H EMDF, PT, BMP3M, PHOS3, MG3, CK3 #### [address] #### VD25H #### [facility] [address] [place] [address] Chloride molar conc 100 mmol/L Normal 98-107 [facility] Comment on above: Performed By: #### H EMDF, PT, BMP3M, PHOS3, MG3, CK3 #### [address] #### VD25H #### [facility] [address] [place] [address] Potassium molar conc 3.3 mmol/L Low 3.5-5.1 [facility] Comment on above: Performed By: #### H EMDF, PT, BMP3M, PHOS3, MG3, CK3 #### [address] #### VD25H #### [facility] [address] [place] [address] Sodium molar conc 140 mmol/L Normal 135-145 [facility] Comment on above: Performed By: #### H EMDF, PT, BMP3M, PHOS3, MG3, CK3 #### [facility] [address] [place], [place] #### VD25H #### [facility] [address] [place] [address] Glucose,Bedsideon 08-20-2018 Glucose mass conc 121 mg/dL High 70-100 [facility] Comment on above: Result Comment: Test performed by glucose meter. Results may be 10%-15% lower than serum/plasma values. (CLIA ID [id number]) Performed By: #### H EMDF, PT, BMP3M, PHOS3, MG3, CK3 #### [address] #### VD25H #### [facility] [address] [place] [address] Glucose mass conc 127 mg/dL High 70-100 [facility] Comment on above: Result Comment: Test performed by glucose meter. Results may be 10%-15% lower than serum/plasma values. (CLIA ID [id number]) Performed By: #### H EMDF, PT, BMP3M, PHOS3, MG3, CK3 #### [address] #### VD25H #### [facility] [address] [place] [address] Hep A Abs, Totalon 9 Hep A Abs, Total Negative Normal Negative [facility] Comment on above: Result Comment: Perf ormed by [email or web address], [address] [place] [address] [email or web address] Moo Lay MD - Lab. Director Performed By: #### H EMDF, PT, BMP3M, PHOS3, MG3, CK3 #### [facility] [address] [place], [place] #### VD25H #### [facility] [address] [place] [address] Basic Metabolic Panelon 04-2 Anion gap molar conc 1 Normal [facility] Comment on above: Performed By: #### H EMDF, PT, BMP3M, PHOS3, MG3, CK3 #### [place] [address] [facility], [place] #### VD25H #### [facility] [address] [place] [address] Calcium mass conc 7.6 mg/dL Low 8.4-10.4 [facility] Comment on above: Performed By: #### H EMDF, PT, BMP3M, PHOS3, MG3, CK3 #### [place] [address] [facility], [place] #### VD25H #### [facility] [address] [place] [address] CO2 molar conc 33 mmol/L High 22-30 [facility] Comment on above: Performed By: #### H EMDF, PT, BMP3M, PHOS3, MG3, CK3 #### [place] [address] [facility], [place] #### VD25H #### [facility] [address] [place] [address] Glucose mass conc 139 mg/dL High 70-100 [facility] Comment on above: Performed By: #### H EMDF, PT, BMP3M, PHOS3, MG3, CK3 #### [place] [address] [facility], [place] #### VD25H #### [facility] [address] [place] [address] Urea nitrogen mass conc 10 mg/dL Normal 7-20 [facility] Comment on above: Performed By: #### H EMDF, PT, BMP3M, PHOS3, MG3, CK3 #### [address] [facility], [place] #### VD25H #### [facility] [address] [place] [address] Creatinine mass conc 0.57 mg/dL Normal 0.52-1.25 [facility] Comment on above: Performed By: #### H EMDF, PT, BMP3M, PHOS3, MG3, CK3 #### [address] [address] #### VD25H #### [facility] [address] [place] [address] GFR/1.73 sq M predicted among blacks MDRD vol rate/area (S/P/Bld) mL/min/{1.73_m2} Normal >60 [facility] Comment on above: Performed By: #### H EMDF, PT, BMP3M, PHOS3, MG3, CK3 #### [address] #### VD25H #### [facility] [address] [place] [address] GFR/1.73 sq M predicted among non-blacks MDRD vol rate/area (S/P/Bld) mL/min/{1.73_m2} Normal >60 [facility] Comment on above: Result Comment: Sour ce- MDRD equation with creatinine calibration to IDMS(NKDEP) eGFR not recommended for drug dose adjustment Performed By: #### H EMDF, PT, BMP3M, PHOS3, MG3, CK3 #### [address] #### VD25H #### [facility] [address] [place] [address] Potassium molar conc 3.4 mmol/L Low 3.5-5.1 [facility] Comment on above: Performed By: #### H EMDF, PT, BMP3M, PHOS3, MG3, CK3 #### [address] #### VD25H #### [facility] [address] [place] [address] Chloride molar conc 104 mmol/L Normal 98-107 [facility] Comment on above: Performed By: #### H EMDF, PT, BMP3M, PHOS3, MG3, CK3 #### [facility] [address] [place] [address] #### VD25H #### [employer] [facility] [address] [place] [address] Sodium molar conc 138 mmol/L Normal 135-145 [facility] Comment on above: Performed By: #### H EMDF, PT, BMP3M, PHOS3, MG3, CK3 #### [facility] [address] [place] [address] #### VD25H #### [employer] [facility] [address] [place] [address] CULT./ST. BACTERIAon 019 CULT./ST. BACTERIA STAIN GRAM [...] 0.12 S Vancomycin(CHRISTI) = 1 S Normal [facility] Comment on above: Order Comment: or co llected Performed By: #### H EMDF, PT, BMP3M, PHOS3, MG3, CK3 #### [employer] [address] #### VD25H #### [facility] [address] [place] [address] Basic Metabolic Panelon 04-2 Calcium mass conc 7.8 mg/dL Low 8.4-10.4 [facility] Comment on above: Performed By: #### H EMDF, PT, BMP3M, PHOS3, MG3, CK3 #### [facility] [employer] [address] #### VD25H #### [facility] [address] [place] [address] Glucose mass conc 104 mg/dL High 70-100 [facility] Comment on above: Performed By: #### H EMDF, PT, BMP3M, PHOS3, MG3, CK3 #### [employer] [address] [place] [address] #### VD25H #### [employer] [facility] [address] [place] [address] Urea nitrogen mass conc 12 mg/dL Normal 7-20 [facility] Comment on above: Performed By: #### H EMDF, PT, BMP3M, PHOS3, MG3, CK3 #### [employer] [address] #### VD25H #### [facility] [address] [place] [address] Anion gap molar conc 5 Normal [facility] Comment on above: Performed By: #### H EMDF, PT, BMP3M, PHOS3, MG3, CK3 #### [address] [address] #### VD25H #### [facility] [address] [place] [address] CO2 molar conc 26 mmol/L Normal 22-30 [facility] Comment on above: Performed By: #### H EMDF, PT, BMP3M, PHOS3, MG3, CK3 #### [address] #### VD25H #### [place] [address] [place] [address] Creatinine mass conc 0.61 mg/dL Normal 0.52-1.25 [facility] Comment on above: Performed By: #### H EMDF, PT, BMP3M, PHOS3, MG3, CK3 #### [address] #### VD25H #### [facility] [address] [place] [address] GFR/1.73 sq M predicted among blacks MDRD vol rate/area (S/P/Bld) mL/min/{1.73_m2} Normal >60 [facility] Comment on above: Performed By: #### H EMDF, PT, BMP3M, PHOS3, MG3, CK3 #### [address] [address] #### VD25H #### [place] [address] [place] [address] GFR/1.73 sq M predicted among non-blacks MDRD vol rate/area (S/P/Bld) mL/min/{1.73_m2} Normal >60 [facility] Comment on above: Result Comment: Sour ce- MDRD equation with creatinine calibration to IDMS(NKDEP) eGFR not recommended for drug dose adjustment Performed By: #### H EMDF, PT, BMP3M, PHOS3, MG3, CK3 #### [facility] [address] [facility] #### VD25H #### [facility] [address] [place] [address] Chloride molar conc 107 mmol/L Normal 98-107 [facility] Comment on above: Performed By: #### H EMDF, PT, BMP3M, PHOS3, MG3, CK3 #### [place] [address] [facility], [place] #### VD25H #### [facility] [address] [place] [address] Potassium molar conc 3.4 mmol/L Low 3.5-5.1 [facility] Comment on above: Performed By: #### H EMDF, PT, BMP3M, PHOS3, MG3, CK3 #### [place] [address] [facility] #### VD25H #### [facility] [address] [place] [address] Sodium molar conc 138 mmol/L Normal 135-145 [facility] Comment on above: Performed By: #### H EMDF, PT, BMP3M, PHOS3, MG3, CK3 #### [facility] [address] [facility] #### VD25H #### [facility] [address] [place] [address] Glucose,Bedsideon 08-18-2018 Glucose mass conc 113 mg/dL High 70-100 [facility] Comment on above: Result Comment: Test performed by glucose meter. Results may be 10%-15% lower than serum/plasma values. (CLIA ID [id number]) Performed By: #### H EMDF, PT, BMP3M, PHOS3, MG3, CK3 #### [place] [address] [facility], [place] #### VD25H #### [facility] [address] [place] [address] Hemogram w/ Autodiffon 08-18 Erythrocyte distribution width Ratio (RBC) 14.4 % Normal 11.5-14.5 [facility] Comment on above: Performed By: #### H EMDF, PT, BMP3M, PHOS3, MG3, CK3 #### [address] #### VD25H #### [place] [address] [place] [address] Hematocrit Volume Fraction (Bld) 29.3 % Low 40.0-52.0 [facility] Comment on above: Performed By: #### H EMDF, PT, BMP3M, PHOS3, MG3, CK3 #### [address] #### VD25H #### [address] [place] [address] Hemoglobin mass conc (Bld) 9.8 g/dL Low 13.0-18.0 [facility] Comment on above: Performed By: #### H EMDF, PT, BMP3M, PHOS3, MG3, CK3 #### [address] #### VD25H #### [address] [place] [address] MCH Entitic mass (RBC) 28.0 pg Normal 26.0-34.0 [facility] Comment on above: Performed By: #### H EMDF, PT, BMP3M, PHOS3, MG3, CK3 #### [address] #### VD25H #### [address] [place] [address] MCHC mass conc (RBC) 33.4 % Normal 32.0-36.0 [facility] Comment on above: Performed By: #### H EMDF, PT, BMP3M, PHOS3, MG3, CK3 #### [address] #### VD25H #### [facility] [address] [place] [address] MCV Entitic volume (RBC) 84.1 fL Normal 80.0-98.0 [facility] Comment on above: Performed By: #### H EMDF, PT, BMP3M, PHOS3, MG3, CK3 #### [place] [address] [place] #### VD25H #### [facility] [address] [place] [address] Platelet mean volume Entitic volume (Bld) 7.9 fL Normal 7.4-10.4 [facility] Comment on above: Performed By: #### H EMDF, PT, BMP3M, PHOS3, MG3, CK3 #### [address] #### VD25H #### [facility] [address] [place] [address] Platelets #/vol (Bld) 301 10*3/uL Normal 140-440 [facility] Comment on above: Performed By: #### H EMDF, PT, BMP3M, PHOS3, MG3, CK3 #### [place] [address] [place], [place] #### VD25H #### [facility] [address] [place] [address] RBC #/vol (Bld) 3.49 10*6/uL Low 4.40-5.90 [facility] Comment on above: Performed By: #### H EMDF, PT, BMP3M, PHOS3, MG3, CK3 #### [address] #### VD25H #### [facility] [address] [place] [address] WBC #/vol (Bld) 8.3 10*3/uL Normal 3.6-10.7 [facility] Comment on above: Performed By: #### H EMDF, PT, BMP3M, PHOS3, MG3, CK3 #### [facility] [address] [place], [place] #### VD25H #### [facility] [address] [place] [address] Magnesiumon 08-18-2018 Magnesium mass conc 2.0 mg/dL Normal 1.6-2.3 [facility] Comment on above: Performed By: #### H EMDF, PT, BMP3M, PHOS3, MG3, CK3 #### [place] [address] [place], [place] #### VD25H #### [facility] [address] [place] [address] Manual Diffon 08-18-2018 Abs Neutrophile Cnt 5.1 10*3/uL Normal 2.2-8.2 [facility] Comment on above: Performed By: #### H EMDF, PT, BMP3M, PHOS3, MG3, CK3 #### [address] #### VD25H #### [facility] [address] [place] [address] Bands 3 % Normal 0-3 [facility] Comment on above: Performed By: #### H EMDF, PT, BMP3M, PHOS3, MG3, CK3 #### [address] #### VD25H #### [facility] [address] [place] [address] Eosinophils #/vol (Bld) 0.2 10*3/uL Normal 0.0-0.5 [facility] Comment on above: Performed By: #### H EMDF, PT, BMP3M, PHOS3, MG3, CK3 #### [address] #### VD25H #### [facility] [address] [place] [address] Eosinophils/100 WBC (Bld) 2 % Normal 1-6 [facility] Comment on above: Performed By: #### H EMDF, PT, BMP3M, PHOS3, MG3, CK3 #### [facility] [address] [place], [place] #### VD25H #### [facility] [address] [place] [address] Lymphocytes #/vol (Bld) 2.1 10*3/uL Normal 1.1-4.5 [facility] Comment on above: Performed By: #### H EMDF, PT, BMP3M, PHOS3, MG3, CK3 #### [place] [address] [place], [place] #### VD25H #### [facility] [address] [place] [address] Lymphocytes/100 WBC (Bld) 25 % Normal 20-40 [facility] Comment on above: Performed By: #### H EMDF, PT, BMP3M, PHOS3, MG3, CK3 #### [address] #### VD25H #### [facility] [address] [place] [address] Metamyelocytes 1 % Abnormal <1 [facility] Comment on above: Performed By: #### H EMDF, PT, BMP3M, PHOS3, MG3, CK3 #### [address] #### VD25H #### [facility] [address] [place] [address] Monocytes #/vol (Bld) 0.6 10*3/uL Normal 0.2-1.1 [facility] Comment on above: Performed By: #### H EMDF, PT, BMP3M, PHOS3, MG3, CK3 #### [address] [place], [place] #### VD25H #### [facility] [address] [place] [address] Monocytes/100 WBC (Bld) 7 % Normal 2-10 [facility] Comment on above: Performed By: #### H EMDF, PT, BMP3M, PHOS3, MG3, CK3 #### [facility] [address] [place], [place] #### VD25H #### [facility] [address] [place] [address] Myelocytes 1 % Abnormal <1 [facility] Comment on above: Performed By: #### H EMDF, PT, BMP3M, PHOS3, MG3, CK3 #### [facility] [address] [place], [place] #### VD25H #### [facility] [address] [place] [address] Protein mass conc 2 % Abnormal <1 [facility] Comment on above: Performed By: #### H EMDF, PT, BMP3M, PHOS3, MG3, CK3 #### [address] #### VD25H #### [facility] [address] [place] [address] RBC morphology finding Nom (Bld) See Prev Normal [facility] Comment on above: Performed By: #### H EMDF, PT, BMP3M, PHOS3, MG3, CK3 #### [address] #### VD25H #### [facility] [address] [place] [address] Seg Neutrophils 59 % Normal 40-80 [facility] Comment on above: Performed By: #### H EMDF, PT, BMP3M, PHOS3, MG3, CK3 #### [place] [address] [place], [place] #### VD25H #### [facility] [address] [place] [address] Abs Baso Cnt 0.0 10*3/uL Normal 0.0-0.2 [facility] Comment on above: Performed By: #### H EMDF, PT, BMP3M, PHOS3, MG3, CK3 #### [address] [place], [place] #### VD25H #### [facility] [address] [place] [address] Basophils/100 WBC (Bld) 0 % Normal 0-2 [facility] Comment on above: Performed By: #### H EMDF, PT, BMP3M, PHOS3, MG3, CK3 #### [place] [address] [facility], [place] #### VD25H #### [facility] [address] [place] [address] Cells counted 100 Normal [facility] Comment on above: Performed By: #### H EMDF, PT, BMP3M, PHOS3, MG3, CK3 #### [address] #### VD25H #### [place] [address] [place] [address] Phosphoruson 08-18-2018 Phosphate mass conc 4.6 mg/dL High 2.5-4.5 [facility] Comment on above: Performed By: #### H EMDF, PT, BMP3M, PHOS3, MG3, CK3 #### [address] #### VD25H #### [place] [address] [place] [address] Basic Metabolic Panelon 07-30 Calcium mass conc 7.7 mg/dL Low 8.4-10.4 [facility] Comment on above: Performed By: #### H EMDF, PT, BMP3M, PHOS3, MG3, CK3 #### [address] #### VD25H #### [facility] [address] [place] [address] Anion gap molar conc 7 Normal [facility] Comment on above: Performed By: #### H EMDF, PT, BMP3M, PHOS3, MG3, CK3 #### [place] [address] [place], [place] #### VD25H #### [facility] [address] [place] [address] CO2 molar conc 25 mmol/L Normal 22-30 [facility] Comment on above: Performed By: #### H EMDF, PT, BMP3M, PHOS3, MG3, CK3 #### [address] [address] #### VD25H #### [facility] [address] [place] [address] Creatinine mass conc 0.59 mg/dL Normal 0.52-1.25 [facility] Comment on above: Performed By: #### H EMDF, PT, BMP3M, PHOS3, MG3, CK3 #### [address] #### VD25H #### [facility] [address] [place] [address] GFR/1.73 sq M predicted among blacks MDRD vol rate/area (S/P/Bld) mL/min/{1.73_m2} Normal >60 [facility] Comment on above: Performed By: #### H EMDF, PT, BMP3M, PHOS3, MG3, CK3 #### [address] #### VD25H #### [facility] [address] [place] [address] GFR/1.73 sq M predicted among non-blacks MDRD vol rate/area (S/P/Bld) mL/min/{1.73_m2} Normal >60 [facility] Comment on above: Result Comment: Sour ce- MDRD equation with creatinine calibration to IDMS(NKDEP) eGFR not recommended for drug dose adjustment Performed By: #### H EMDF, PT, BMP3M, PHOS3, MG3, CK3 #### [address] [address] #### VD25H #### [facility] [address] [place] [address] Glucose mass conc 116 mg/dL High 70-100 [facility] Comment on above: Performed By: #### H EMDF, PT, BMP3M, PHOS3, MG3, CK3 #### [facility] [address] [facility], [place] #### VD25H #### [facility] [address] [place] [address] Urea nitrogen mass conc 12 mg/dL Normal 7-20 [facility] Comment on above: Performed By: #### H EMDF, PT, BMP3M, PHOS3, MG3, CK3 #### [place] [address] [facility], [place] #### VD25H #### [facility] [address] [place] [address] Potassium molar conc 3.2 mmol/L Low 3.5-5.1 [facility] Comment on above: Performed By: #### H EMDF, PT, BMP3M, PHOS3, MG3, CK3 #### [place] [address] [facility], [place] #### VD25H #### [facility] [address] [place] [address] Sodium molar conc 138 mmol/L Normal 135-145 [facility] Comment on above: Performed By: #### H EMDF, PT, BMP3M, PHOS3, MG3, CK3 #### [place] [address] [facility], [place] #### VD25H #### [facility] [address] [place] [address] Chloride molar conc 106 mmol/L Normal 98-107 [facility] Comment on above: Performed By: #### H EMDF, PT, BMP3M, PHOS3, MG3, CK3 #### [place] [address] [facility], [place] #### VD25H #### [facility] [address] [place] [address] CR Chest Portableon 08-18-19 19 CR Chest Portable Patient Name: KATHYA HOOPER Diagnostic Radiology Exam Date/Time 08/17/2018 17:54:46 EDT Exam CR Chest Portable Ordering Physician SALO DAVIS Accession Number [id number] CPT4 Codes 65668 () Reason For Exam line placement Report [...] Transcribed Date and Time: 08/17/2018 6:05 Normal [facility] CR Chest Portable Patient Name: KATHYA HOOPER Diagnostic Radiology Exam Date/Time 08/17/2018 06:11:03 EDT Exam CR Chest Portable Ordering Physician ETIENNE VELÁSQUEZ TIMOTHY P Accession Number [id number] CPT4 Codes 25665 () Reason For Exam follow left pleural [...] Transcribed Date and Time: 08/17/2018 7:16 Normal [facility] Ferritinon 08-17-2018 Ferritin mass conc 1100 ng/mL High 18-464 [facility] Comment on above: Performed By: #### H EMDF, PT, BMP3M, PHOS3, MG3, CK3 #### [facility] [address] [place], [place] #### VD25H #### [facility] [address] [place] [address] Folateon 08-17-2018 Folate 15.1 ng/mL Normal 2.8-20.0 [facility] Comment on above: Performed By: #### H EMDF, PT, BMP3M, PHOS3, MG3, CK3 #### [facility] [address] [place] #### VD25H #### [facility] [address] [place] [address] Glucose,Bedsideon 08-17-2018 Glucose mass conc 133 mg/dL High 70-100 [facility] Comment on above: Result Comment: Test performed by glucose meter. Results may be 10%-15% lower than serum/plasma values. (CLIA ID [id number]) Performed By: #### H EMDF, PT, BMP3M, PHOS3, MG3, CK3 #### [facility] [address] [place] [place], [place] #### VD25H #### [facility] [address] [place] [address] Hemoglobin A1Con 08-17-2018 Hemoglobin A1c/Hemoglobin.total mass fraction (Bld) 117 mg/dL Normal [facility] Comment on above: Performed By: #### H EMDF, PT, BMP3M, PHOS3, MG3, CK3 #### [facility] [address] [place] [place] #### VD25H #### [place] [address] [place] [address] Hemoglobin A1c/Hemoglobin.total mass fraction (Bld) 5.7 % Normal 4.0-5.7 [facility] Comment on above: Result Comment: --Hg bA1C levels may not be accurate in patients who have renal disease, received recent blood transfusions, are anemic, or who have dyshemoglobinemia. Performed By: #### H EMDF, PT, BMP3M, PHOS3, MG3, CK3 #### [address] #### VD25H #### [address] [place] [address] Hemogram w/ Autodiffon 08-17 Erythrocyte distribution width Ratio (RBC) 14.3 % Normal 11.5-14.5 [facility] Comment on above: Performed By: #### H EMDF, PT, BMP3M, PHOS3, MG3, CK3 #### [address] #### VD25H #### [address] [facility] [place] [address] Hematocrit Volume Fraction (Bld) 29.1 % Low 40.0-52.0 [facility] Comment on above: Performed By: #### H EMDF, PT, BMP3M, PHOS3, MG3, CK3 #### [address] #### VD25H #### [address] [place] [address] Hemoglobin mass conc (Bld) 9.8 g/dL Low 13.0-18.0 [facility] Comment on above: Performed By: #### H EMDF, PT, BMP3M, PHOS3, MG3, CK3 #### [address] #### VD25H #### [address] [place] [address] MCH Entitic mass (RBC) 28.4 pg Normal 26.0-34.0 [facility] Comment on above: Performed By: #### H EMDF, PT, BMP3M, PHOS3, MG3, CK3 #### [facility] [address] [place], [place] #### VD25H #### [facility] [address] [place] [address] MCHC mass conc (RBC) 33.5 % Normal 32.0-36.0 [facility] Comment on above: Performed By: #### H EMDF, PT, BMP3M, PHOS3, MG3, CK3 #### [address] #### VD25H #### [facility] [address] [place] [address] MCV Entitic volume (RBC) 84.7 fL Normal 80.0-98.0 [facility] Comment on above: Performed By: #### H EMDF, PT, BMP3M, PHOS3, MG3, CK3 #### [address] #### VD25H #### [facility] [address] [place] [address] Platelet mean volume Entitic volume (Bld) 8.1 fL Normal 7.4-10.4 [facility] Comment on above: Performed By: #### H EMDF, PT, BMP3M, PHOS3, MG3, CK3 #### [address] #### VD25H #### [facility] [address] [place] [address] Platelets #/vol (Bld) 281 10*3/uL Normal 140-440 [facility] Comment on above: Performed By: #### H EMDF, PT, BMP3M, PHOS3, MG3, CK3 #### [address] #### VD25H #### [facility] [address] [place] [address] RBC #/vol (Bld) 3.44 10*6/uL Low 4.40-5.90 [facility] Comment on above: Performed By: #### H EMDF, PT, BMP3M, PHOS3, MG3, CK3 #### [facility] [address] [place], [place] #### VD25H #### [facility] [address] [place] [address] WBC #/vol (Bld) 8.3 10*3/uL Normal 3.6-10.7 [facility] Comment on above: Performed By: #### H EMDF, PT, BMP3M, PHOS3, MG3, CK3 #### [facility] [address] [place] #### VD25H #### [facility] [address] [place] [address] Hep B Surface Abon 9 Hep B Surface Ab < 8.0 Normal [facility] Comment on above: Result Comment: Inte rpretation: <8.0 Non-Reactive 8.0-11.9 Equivocal >= 12.0 Ab Detected Performed By: #### H EMDF, PT, BMP3M, PHOS3, MG3, CK3 #### [facility] [address] [place] #### VD25H #### [facility] [address] [place] [address] Hep B Surface Agon 9 Hep B Surface Ag NOT DETECTED Normal Not-Detected [facility] Comment on above: Performed By: #### H EMDF, PT, BMP3M, PHOS3, MG3, CK3 #### [facility] [address], [place] #### VD25H #### [facility] [address] [place] [address] Hep C Antibodyon 08-17-2018 Hep C Antibody NOT DETECTED Normal Not-Detected [facility] Comment on above: Result Comment: Bharti ents with DETECTED Hepatitis C Ab results should have a new specimen submitted for supplemental testing with a Hepatitis C Quantitative RNA assay (viral load), if clinically indicated. Performed By: #### H EMDF, PT, BMP3M, PHOS3, MG3, CK3 #### [facility] [address] [place], [place] #### VD25H #### [facility] [address] [place] [address] Hepatic Functionon ALP enzyme act/vol 116 U/L Normal 38-126 [facility] Comment on above: Performed By: #### H EMDF, PT, BMP3M, PHOS3, MG3, CK3 #### [place] [address] [place], [place] #### VD25H #### [facility] [address] [place] [address] ALT enzyme act/vol 370 U/L High 13-69 [facility] Comment on above: Performed By: #### H EMDF, PT, BMP3M, PHOS3, MG3, CK3 #### [place] [place], [place] #### VD25H #### [facility] [address] [place] [address] AST enzyme act/vol 150 U/L High 15-46 [facility] Comment on above: Performed By: #### H EMDF, PT, BMP3M, PHOS3, MG3, CK3 #### [place] [address] [place] #### VD25H #### [facility] [address] [place] [address] Bilirubin mass conc 0.7 mg/dL Normal 0.2-1.3 [facility] Comment on above: Performed By: #### H EMDF, PT, BMP3M, PHOS3, MG3, CK3 #### [place] [address] [place], [place] #### VD25H #### [facility] [address] [place] [address] Bilirubin.direct mass conc 0.0 mg/dL Normal 0.0-0.3 [facility] Comment on above: Performed By: #### H EMDF, PT, BMP3M, PHOS3, MG3, CK3 #### [place] [address] [place], [place] #### VD25H #### [facility] [address] [place] [address] Protein mass conc 5.4 g/dL Low 6.3-8.2 [facility] Comment on above: Performed By: #### H EMDF, PT, BMP3M, PHOS3, MG3, CK3 #### [place] [place], [place] #### VD25H #### [facility] [address] [place] [address] Albumin mass conc 2.5 g/dL Low 3.5-5.0 [facility] Comment on above: Performed By: #### H EMDF, PT, BMP3M, PHOS3, MG3, CK3 #### [place] [address] [place], [place] #### VD25H #### [facility] [address] [place] [address] Iron AND TIBCon 08-17-2018 Saturation 14 % Low 15-50 [facility] Comment on above: Performed By: #### H EMDF, PT, BMP3M, PHOS3, MG3, CK3 #### [address] #### VD25H #### [facility] [address] [place] [address] Total Iron Binding Cap. 166 ug/dL Low 261-497 [facility] Comment on above: Performed By: #### H EMDF, PT, BMP3M, PHOS3, MG3, CK3 #### [place] [address] [place], [place] #### VD25H #### [facility] [address] [place] [address] Iron, Total 23 ug/dL Low 49-181 [facility] Comment on above: Performed By: #### H EMDF, PT, BMP3M, PHOS3, MG3, CK3 #### [address] #### VD25H #### [facility] [address] [place] [address] Magnesiumon 08-17-2018 Magnesium mass conc 2.0 mg/dL Normal 1.6-2.3 [facility] Comment on above: Performed By: #### H EMDF, PT, BMP3M, PHOS3, MG3, CK3 #### [address] #### VD25H #### [facility] [address] [place] [address] Manual Diffon 08-17-2018 Abs Baso Cnt 0.1 10*3/uL Normal 0.0-0.2 [facility] Comment on above: Performed By: #### H EMDF, PT, BMP3M, PHOS3, MG3, CK3 #### [address] #### VD25H #### [facility] [address] [place] Abs Neutrophile Cnt 5.6 10*3/uL Normal 2.2-8.2 [facility] Comment on above: Performed By: #### H EMDF, PT, BMP3M, PHOS3, MG3, CK3 #### [address] #### VD25H #### [facility] [address] [place] [address] Anisocytosis Ql (Bld) Slight Normal [facility] Comment on above: Performed By: #### H EMDF, PT, BMP3M, PHOS3, MG3, CK3 #### [address] #### VD25H #### [facility] [address] [place] [address] Bands 9 % High 0-3 [facility] Comment on above: Performed By: #### H EMDF, PT, BMP3M, PHOS3, MG3, CK3 #### [facility] [address] [place], [place] #### VD25H #### [facility] [address] [place] [address] Basophils/100 WBC (Bld) 1 % Normal 0-2 [facility] Comment on above: Performed By: #### H EMDF, PT, BMP3M, PHOS3, MG3, CK3 #### [facility] [address] [place], [place] #### VD25H #### [facility] [address] [place] [address] Eosinophils #/vol (Bld) 0.2 10*3/uL Normal 0.0-0.5 [facility] Comment on above: Performed By: #### H EMDF, PT, BMP3M, PHOS3, MG3, CK3 #### [place] [address] [place], [place] #### VD25H #### [facility] [address] [place] [address] Eosinophils/100 WBC (Bld) 3 % Normal 1-6 [facility] Comment on above: Performed By: #### H EMDF, PT, BMP3M, PHOS3, MG3, CK3 #### [facility] [address] [place], [place] #### VD25H #### [facility] [address] [place] [address] Lymphocytes #/vol (Bld) 1.5 10*3/uL Normal 1.1-4.5 [facility] Comment on above: Performed By: #### H EMDF, PT, BMP3M, PHOS3, MG3, CK3 #### [place] [address] [place], [place] #### VD25H #### [facility] [address] [place] [address] Lymphocytes/100 WBC (Bld) 18 % Low 20-40 [facility] Comment on above: Performed By: #### H EMDF, PT, BMP3M, PHOS3, MG3, CK3 #### [place] [address] [place], [place] #### VD25H #### [facility] [address] [place] [address] Monocytes #/vol (Bld) 0.4 10*3/uL Normal 0.2-1.1 [facility] Comment on above: Performed By: #### H EMDF, PT, BMP3M, PHOS3, MG3, CK3 #### [place] [address] [place] #### VD25H #### [facility] [address] [place] [address] Monocytes/100 WBC (Bld) 5 % Normal 2-10 [facility] Comment on above: Performed By: #### H EMDF, PT, BMP3M, PHOS3, MG3, CK3 #### [address] #### VD25H #### [facility] [address] [place] [address] Myelocytes 5 % Abnormal <1 [facility] Comment on above: Performed By: #### H EMDF, PT, BMP3M, PHOS3, MG3, CK3 #### [address] #### VD25H #### [facility] [address] [place] [address] Polychromasia Slight Normal [facility] Comment on above: Performed By: #### H EMDF, PT, BMP3M, PHOS3, MG3, CK3 #### [address] #### VD25H #### [facility] [address] [facility] [place] [address] RBC morphology finding Nom (Bld) ABNORMAL Normal [facility] Comment on above: Performed By: #### H EMDF, PT, BMP3M, PHOS3, MG3, CK3 #### [place] [address] [place] #### VD25H #### [facility] [address] [place] [address] Seg Neutrophils 59 % Normal 40-80 [facility] Comment on above: Performed By: #### H EMDF, PT, BMP3M, PHOS3, MG3, CK3 #### [facility] [address] [place], [place] #### VD25H #### [facility] [address] [place] [address] Toxic Granulation Slight Normal [facility] Comment on above: Performed By: #### H EMDF, PT, BMP3M, PHOS3, MG3, CK3 #### [place] [address] [place], [place] #### VD25H #### [facility] [address] [place] [address] Cells counted 100 Normal [facility] Comment on above: Performed By: #### H EMDF, PT, BMP3M, PHOS3, MG3, CK3 #### [place] [address] [place], [place] #### VD25H #### [facility] [address] [place] [address] Phosphoruson 08-17-2018 Phosphate mass conc 3.9 mg/dL Normal 2.5-4.5 [facility] Comment on above: Performed By: #### H EMDF, PT, BMP3M, PHOS3, MG3, CK3 #### [facility] [address] [place], [place] #### VD25H #### [facility] [address] [place] [address] Triglycerideon 08-17-2018 Triglyceride mass conc 104 mg/dL Normal <150 [facility] Comment on above: Performed By: #### H EMDF, PT, BMP3M, PHOS3, MG3, CK3 #### [place] [address] [place], [place] #### VD25H #### [facility] [address] [place] [address] Vitamin B12on 08-17-2018 Cobalamin (Vitamin B12) mass conc 615 pg/mL Normal 239-931 [facility] [employer] Comment on above: Performed By: #### H EMDF, PT, BMP3M, PHOS3, MG3, CK3 #### [facility] [address] [place] [address] #### VD25H #### [facility] [address] [place] [address] Albumin, Serumon 08-16-2018 Albumin mass conc 2.6 g/dL Low 3.5-5.[address] [facility] Comment on above: Performed By: #### H EMDF, PT, BMP3M, PHOS3, MG3, CK3 #### [facility] [address] [place] [address] #### VD25H #### [facility] [address] [place] [address] CR Abdomen APon 08-16-2018 CR Abdomen AP Patient Name: KATHYA HOOPER Diagnostic Radiology Exam Date/Time 08/16/2018 10:17:24 EDT Exam CR Abdomen AP Ordering Physician [id number] JOEY VILLAGRAN Accession Number [id number] CPT4 Codes 07477 () Reason For Exam dobhoff placement Report [...] Transcribed Date and Time: 08/16/2018 12:33 Normal [facility] CR Chest Portableon 08-17-19 19 CR Chest Portable Patient Name: KATHYA HOOEPR Diagnostic Radiology Exam Date/Time 08/16/2018 10:17:24 EDT Exam CR Chest Portable Ordering Physician [id number] ANNA Accession Number [id number] CPT4 Codes 90685 () Reason For Exam dyspnea Report PORTABLE [...] Transcribed Date and Time: 08/16/2018 12:31 Normal [facility] Comp Panel with Mg Reflexon 08-16-2018 Calcium mass conc 7.8 mg/dL Low 8.4-10.[address] [facility] Comment on above: Performed By: #### H EMDF, PT, BMP3M, PHOS3, MG3, CK3 #### [facility] [address] [place] [address] #### VD25H #### [facility] [address] [place] [address] Glucose mass conc 114 mg/dL High 70-[address] [facility] Comment on above: Performed By: #### H EMDF, PT, BMP3M, PHOS3, MG3, CK3 #### [facility] [address] [place], [place] #### VD25H #### [facility] [address] [place] [address] ALP enzyme act/vol 114 U/L Normal 38-126 [facility] Comment on above: Performed By: #### H EMDF, PT, BMP3M, PHOS3, MG3, CK3 #### [facility] [address] [place], [place] #### VD25H #### [facility] [address] [place] [address] ALT enzyme act/vol 539 U/L High 13-69 [facility] Comment on above: Performed By: #### H EMDF, PT, BMP3M, PHOS3, MG3, CK3 #### [place] [address] [place], [place] #### VD25H #### [facility] [address] [place] [address] Anion gap molar conc 4 Normal [facility] Comment on above: Performed By: #### H EMDF, PT, BMP3M, PHOS3, MG3, CK3 #### [facility] [address] [place], [place] #### VD25H #### [facility] [address] [place] [address] AST enzyme act/vol 460 U/L High 15-46 [facility] Comment on above: Performed By: #### H EMDF, PT, BMP3M, PHOS3, MG3, CK3 #### [facility] [address] [facility], [place] #### VD25H #### [facility] [address] [place] [address] Bilirubin mass conc 0.7 mg/dL Normal 0.2-1.3 [facility] Comment on above: Performed By: #### H EMDF, PT, BMP3M, PHOS3, MG3, CK3 #### [place] [address] [place], [place] #### VD25H #### [facility] [address] [place] [address] CO2 molar conc 25 mmol/L Normal 22-30 [facility] Comment on above: Performed By: #### H EMDF, PT, BMP3M, PHOS3, MG3, CK3 #### [place] [address] [place], [place] #### VD25H #### [facility] [address] [place] [address] Creatinine mass conc 0.71 mg/dL Normal 0.52-1.25 [facility] Comment on above: Performed By: #### H EMDF, PT, BMP3M, PHOS3, MG3, CK3 #### [address] #### VD25H #### [facility] [address] [place] [address] GFR/1.73 sq M predicted among blacks MDRD vol rate/area (S/P/Bld) mL/min/{1.73_m2} Normal >60 [facility] Comment on above: Performed By: #### H EMDF, PT, BMP3M, PHOS3, MG3, CK3 #### [address] #### VD25H #### [facility] [address] [place] [address] GFR/1.73 sq M predicted among non-blacks MDRD vol rate/area (S/P/Bld) mL/min/{1.73_m2} Normal >60 [facility] Comment on above: Result Comment: Sour ce- MDRD equation with creatinine calibration to IDMS(NKDEP) eGFR not recommended for drug dose adjustment Performed By: #### H EMDF, PT, BMP3M, PHOS3, MG3, CK3 #### [place] [place], [place] #### VD25H #### [facility] [address] [place] [address] Protein mass conc 5.1 g/dL Low 6.3-8.2 [facility] Comment on above: Performed By: #### H EMDF, PT, BMP3M, PHOS3, MG3, CK3 #### [facility] [address] [place], [place] #### VD25H #### [facility] [address] [place] [address] Urea nitrogen mass conc 22 mg/dL High 7-20 [facility] Comment on above: Performed By: #### H EMDF, PT, BMP3M, PHOS3, MG3, CK3 #### [address] [place], [place] #### VD25H #### [facility] [address] [place] [address] Chloride molar conc 102 mmol/L Normal 98-107 [facility] Comment on above: Performed By: #### H EMDF, PT, BMP3M, PHOS3, MG3, CK3 #### [address] [place], [place] #### VD25H #### [facility] [address] [place] [address] Potassium molar conc 3.1 mmol/L Low 3.5-5.1 [facility] Comment on above: Performed By: #### H EMDF, PT, BMP3M, PHOS3, MG3, CK3 #### [facility] [address] [place], [place] #### VD25H #### [facility] [address] [place] [address] Sodium molar conc 131 mmol/L Low 135-145 [facility] Comment on above: Performed By: #### H EMDF, PT, BMP3M, PHOS3, MG3, CK3 #### [address] [place], [place] #### VD25H #### [facility] [address] [place] [address] Albumin mass conc 2.4 g/dL Low 3.5-5.0 [facility] Comment on above: Performed By: #### H EMDF, PT, BMP3M, PHOS3, MG3, CK3 #### [facility] [address] [place] [address] #### VD25H #### [facility] [address] [place] [address] Glucose,Bedsideon 08-16-2018 Glucose mass conc 100 mg/dL Normal 70-[address] [facility] Comment on above: Result Comment: Test performed by glucose meter. Results may be 10%-15% lower than serum/plasma values. (CLIA ID [id number]) Performed By: #### H EMDF, PT, BMP3M, PHOS3, MG3, CK3 #### [facility] [address] [place] [id number] #### VD25H #### [facility] [address] [place] [address] Glucose mass conc 98 mg/dL Normal 70-[address] [facility] Comment on above: Result Comment: Test performed by glucose meter. Results may be 10%-15% lower than serum/plasma values. (CLIA ID [id number]) Performed By: #### H EMDF, PT, BMP3M, PHOS3, MG3, CK3 #### [facility] [address] [place] [phone] #### VD25H #### [facility] [address] [place] [address] Glucose mass conc 110 mg/dL High 70-[address] [facility] Comment on above: Result Comment: Test performed by glucose meter. Results may be 10%-15% lower than serum/plasma values. (CLIA ID [id number]) Performed By: #### H EMDF, PT, BMP3M, PHOS3, MG3, CK3 #### [facility] [address] [place] [phone] #### VD25H #### [facility] [address] [place] [address] Glucose mass conc 113 mg/dL High 70-100 [facility] Comment on above: Result Comment: Test performed by glucose meter. Results may be 10%-15% lower than serum/plasma values. (CLIA ID [id number]) Performed By: #### H EMDF, PT, BMP3M, PHOS3, MG3, CK3 #### [address] #### VD25H #### [facility] [address] [place] [place] [address] Glucose mass conc 126 mg/dL High 70-100 [facility] Comment on above: Result Comment: Test performed by glucose meter. Results may be 10%-15% lower than serum/plasma values. (CLIA ID [id number]) Performed By: #### H EMDF, PT, BMP3M, PHOS3, MG3, CK3 #### [address] #### VD25H #### [place] [address] [place] [address] Hemogram w/ Autodiffon 08-16 Abs Baso Cnt 0.0 10*3/uL Normal 0.0-0.2 [facility] Comment on above: Performed By: #### H EMDF, PT, BMP3M, PHOS3, MG3, CK3 #### [address] #### VD25H #### [facility] [address] [facility] [place] [address] Abs Neutrophile Cnt 7.7 10*3/uL High 1.8-7.0 [facility] Comment on above: Performed By: #### H EMDF, PT, BMP3M, PHOS3, MG3, CK3 #### [address] #### VD25H #### [facility] [address] [facility] [place] [address] Basophils/100 WBC (Bld) 0.5 % Normal 0.0-2.0 [facility] Comment on above: Performed By: #### H EMDF, PT, BMP3M, PHOS3, MG3, CK3 #### [address] [place], [place] #### VD25H #### [facility] [address] [place] [address] Eosinophils #/vol (Bld) 0.1 10*3/uL Normal 0.0-0.5 [facility] Comment on above: Performed By: #### H EMDF, PT, BMP3M, PHOS3, MG3, CK3 #### [address] #### VD25H #### [facility] [address] [place] [address] Eosinophils/100 WBC (Bld) 1.5 % Normal 1.0-6.0 [facility] Comment on above: Performed By: #### H EMDF, PT, BMP3M, PHOS3, MG3, CK3 #### [address] #### VD25H #### [facility] [address] [place] [address] Erythrocyte distribution width Ratio (RBC) 14.4 % Normal 11.5-14.5 [facility] Comment on above: Performed By: #### H EMDF, PT, BMP3M, PHOS3, MG3, CK3 #### [address] #### VD25H #### [facility] [address] [place] [address] Granulocytes/100 WBC (Bld) 79.7 % Normal 40.0-80.0 [facility] Comment on above: Performed By: #### H EMDF, PT, BMP3M, PHOS3, MG3, CK3 #### [address] #### VD25H #### [facility] [address] [place] [address] Hematocrit Volume Fraction (Bld) 27.1 % Low 40.0-52.0 [facility] Comment on above: Performed By: #### H EMDF, PT, BMP3M, PHOS3, MG3, CK3 #### [facility] [address] [place], [place] #### VD25H #### [facility] [address] [place] [address] Hemoglobin mass conc (Bld) 9.2 g/dL Low 13.0-18.0 [facility] Comment on above: Performed By: #### H EMDF, PT, BMP3M, PHOS3, MG3, CK3 #### [address] #### VD25H #### [facility] [address] [place] [address] Lymphocytes #/vol (Bld) 1.0 10*3/uL Normal 1.0-4.3 [facility] Comment on above: Performed By: #### H EMDF, PT, BMP3M, PHOS3, MG3, CK3 #### [address] #### VD25H #### [facility] [address] [place] [address] Lymphocytes/100 WBC (Bld) 10.0 % Low 20.0-40.0 [facility] Comment on above: Performed By: #### H EMDF, PT, BMP3M, PHOS3, MG3, CK3 #### [address] #### VD25H #### [facility] [address] [place] [address] MCH Entitic mass (RBC) 28.5 pg Normal 26.0-34.0 [facility] Comment on above: Performed By: #### H EMDF, PT, BMP3M, PHOS3, MG3, CK3 #### [address] #### VD25H #### [facility] [address] [place] [address] MCHC mass conc (RBC) 33.8 % Normal 32.0-36.0 [facility] Comment on above: Performed By: #### H EMDF, PT, BMP3M, PHOS3, MG3, CK3 #### [address] #### VD25H #### [facility] [address] [place] [address] MCV Entitic volume (RBC) 84.4 fL Normal 80.0-98.0 [facility] Comment on above: Performed By: #### H EMDF, PT, BMP3M, PHOS3, MG3, CK3 #### [address] #### VD25H #### [facility] [address] [place] [address] Monocytes #/vol (Bld) 0.8 10*3/uL Normal 0.0-0.8 [facility] Comment on above: Performed By: #### H EMDF, PT, BMP3M, PHOS3, MG3, CK3 #### [address] #### VD25H #### [facility] [address] [place] [address] Monocytes/100 WBC (Bld) 8.3 % Normal 2.0-10.0 [facility] Comment on above: Performed By: #### H EMDF, PT, BMP3M, PHOS3, MG3, CK3 #### [address] #### VD25H #### [facility] [address] [place] [address] Platelet mean volume Entitic volume (Bld) 8.4 fL Normal 7.4-10.4 [facility] Comment on above: Performed By: #### H EMDF, PT, BMP3M, PHOS3, MG3, CK3 #### [address] #### VD25H #### [facility] [address] [place] [address] Platelets #/vol (Bld) 245 10*3/uL Normal 140-440 [facility] Comment on above: Performed By: #### H EMDF, PT, BMP3M, PHOS3, MG3, CK3 #### [address] #### VD25H #### [facility] [address] [place] [address] RBC #/vol (Bld) 3.21 10*6/uL Low 4.40-5.90 [facility] Comment on above: Performed By: #### H EMDF, PT, BMP3M, PHOS3, MG3, CK3 #### [address] #### VD25H #### [place] [address] [place] [address] WBC #/vol (Bld) 9.7 10*3/uL Normal 3.6-10.7 [facility] Comment on above: Performed By: #### H EMDF, PT, BMP3M, PHOS3, MG3, CK3 #### [address] #### VD25H #### [place] [address] [place] [address] Magnesiumon 08-16-2018 Magnesium mass conc 2.1 mg/dL Normal 1.6-2.3 [facility] Comment on above: Performed By: #### H EMDF, PT, BMP3M, PHOS3, MG3, CK3 #### [address] #### VD25H #### [facility] [address] [place] [address] Phosphoruson 08-16-2018 Phosphate mass conc 4.4 mg/dL Normal 2.5-4.5 [facility] Comment on above: Performed By: #### H EMDF, PT, BMP3M, PHOS3, MG3, CK3 #### [address] [place], [place] #### VD25H #### [facility] [address] [place] [address] Potassiumon 08-16-2018 Potassium molar conc 3.5 mmol/L Normal 3.5-5.1 [facility] Comment on above: Performed By: #### H EMDF, PT, BMP3M, PHOS3, MG3, CK3 #### [address] [place], [place] #### VD25H #### [facility] [address] [place] [address] Procalcitoninon 08-16-2018 Protein mass conc 3.10 ng/mL Abnormal <0.10 [facility] Comment on above: Performed By: #### H EMDF, PT, BMP3M, PHOS3, MG3, CK3 #### [address] #### VD25H #### [facility] [address] [place] [address] Prothrombin Timeon 9 INR Coag RelTime (PPP) 1.1 Normal 0.9-1.1 [facility] Comment on above: Result Comment: Yefri [...] PT, BMP3M, PHOS3, MG3, CK3 #### [address] [place], [place] #### VD25H #### [facility] [address] [place] [address] Prothrombin time (PT) Coag time (PPP) 11.8 s Normal 9.0-12.0 [facility] Comment on above: Result Comment: . Performed By: #### H EMDF, PT, BMP3M, PHOS3, MG3, CK3 #### [facility] [address] [place] [address] #### VD25H #### [facility] [address] [place] [address] US Abdomen Limitedon 019 US Abdomen Limited Patient Name: KATHYA HOOPER Ultrasound Exam Date/Time 08/16/2018 19:12:00 EDT Exam US Abdomen Limited Ordering Physician [id number] ESPINOSA Accession Number [id number] CPT4 Codes 06678 () Reason For Exam elevated transaminases Report [...] Transcribed Date and Time: 08/16/2018 7:26 Normal [facility] Glucose,Bedsideon 08-15-2018 Glucose mass conc 98 mg/dL Normal 70-100 [facility] Comment on above: Result Comment: Test performed by glucose meter. Results may be 10%-15% lower than serum/plasma values. (CLIA ID [id number]) Performed By: #### H EMDF, PT, BMP3M, PHOS3, MG3, CK3 #### [address] #### VD25H #### [facility] [address] [place] [address] Procalcitoninon 08-15-2018 Interpretation See Below Normal [facility] Comment on above: Result Comment: PCT <0.50 = Low risk of severe sepsis and/or septic shock. PCT >2.00 = High risk of severe sepsis and/or septic shock. Performed By: #### H EMDF, PT, BMP3M, PHOS3, MG3, CK3 #### [address] #### VD25H #### [address] [place] [address] CULTURE FUNGUSon 08-13-2018 CULTURE FUNGUS CULTURE FUNGUS --> Status: F No fungus isolated after 21 days. Normal [facility] Comment on above: Order Comment: Speci men Source Comment:Body Fluid Performed By: #### H EMDF, PT, BMP3M, PHOS3, MG3, CK3 #### [address] #### VD25H #### [place] [address] [place] [address] Hemogram w/ Autodiffon 08-01 Abs Baso Cnt 0.2 10*3/uL Normal 0.0-0.2 [facility] Comment on above: Performed By: #### H EMDF, PT, BMP3M, PHOS3, MG3, CK3 #### [address] #### VD25H #### [place] [address] [place], [place] Abs Neutrophile Cnt 14.3 10*3/uL High 1.8-7.0 [facility] Comment on above: Performed By: #### H EMDF, PT, BMP3M, PHOS3, MG3, CK3 #### [facility] [address] [place], [place] #### VD25H #### [facility] [address] [place] [address] Basophils/100 WBC (Bld) 1.0 % Normal 0.0-2.0 [facility] Comment on above: Performed By: #### H EMDF, PT, BMP3M, PHOS3, MG3, CK3 #### [address] [place], [place] #### VD25H #### [facility] [address] [place] [address] Eosinophils #/vol (Bld) 0.4 10*3/uL Normal 0.0-0.5 [facility] Comment on above: Performed By: #### H EMDF, PT, BMP3M, PHOS3, MG3, CK3 #### [address] #### VD25H #### [facility] [address] [place] [address] Eosinophils/100 WBC (Bld) 2.3 % Normal 1.0-6.0 [facility] Comment on above: Performed By: #### H EMDF, PT, BMP3M, PHOS3, MG3, CK3 #### [address] #### VD25H #### [facility] [address] [place] [address] Erythrocyte distribution width Ratio (RBC) 13.7 % Normal 11.5-14.5 [facility] Comment on above: Performed By: #### H EMDF, PT, BMP3M, PHOS3, MG3, CK3 #### [address] #### VD25H #### [facility] [address] [place] [address] Granulocytes/100 WBC (Bld) 82.1 % High 40.0-80.0 [facility] Comment on above: Performed By: #### H EMDF, PT, BMP3M, PHOS3, MG3, CK3 #### [address] #### VD25H #### [facility] [address] [place] [address] Hematocrit Volume Fraction (Bld) 31.2 % Low 40.0-52.0 [facility] Comment on above: Performed By: #### H EMDF, PT, BMP3M, PHOS3, MG3, CK3 #### [address] #### VD25H #### [facility] [address] [place] [address] Hemoglobin mass conc (Bld) 10.5 g/dL Low 13.0-18.0 [facility] Comment on above: Performed By: #### H EMDF, PT, BMP3M, PHOS3, MG3, CK3 #### [address] #### VD25H #### [facility] [address] [place] [address] Lymphocytes #/vol (Bld) 1.6 10*3/uL Normal 1.0-4.3 [facility] Comment on above: Performed By: #### H EMDF, PT, BMP3M, PHOS3, MG3, CK3 #### [address] #### VD25H #### [facility] [address] [place] [address] Lymphocytes/100 WBC (Bld) 9.1 % Low 20.0-40.0 [facility] Comment on above: Performed By: #### H EMDF, PT, BMP3M, PHOS3, MG3, CK3 #### [address] #### VD25H #### [facility] [address] [place] [address] MCH Entitic mass (RBC) 28.9 pg Normal 26.0-34.0 [facility] Comment on above: Performed By: #### H EMDF, PT, BMP3M, PHOS3, MG3, CK3 #### [facility] [address] [place] #### VD25H #### [facility] [address] [place] [address] MCHC mass conc (RBC) 33.7 % Normal 32.0-36.0 [facility] Comment on above: Performed By: #### H EMDF, PT, BMP3M, PHOS3, MG3, CK3 #### [address] #### VD25H #### [facility] [address] [place] [address] MCV Entitic volume (RBC) 85.5 fL Normal 80.0-98.0 [facility] Comment on above: Performed By: #### H EMDF, PT, BMP3M, PHOS3, MG3, CK3 #### [address] #### VD25H #### [facility] [address] [place] [address] Monocytes #/vol (Bld) 1.0 10*3/uL High 0.0-0.8 [facility] Comment on above: Performed By: #### H EMDF, PT, BMP3M, PHOS3, MG3, CK3 #### [address] #### VD25H #### [facility] [address] [place] [address] Monocytes/100 WBC (Bld) 5.5 % Normal 2.0-10.0 [facility] Comment on above: Performed By: #### H EMDF, PT, BMP3M, PHOS3, MG3, CK3 #### [address] #### VD25H #### [facility] [address] [place] [address] Platelet mean volume Entitic volume (Bld) 8.0 fL Normal 7.4-10.[address] [facility] Comment on above: Performed By: #### H EMDF, PT, BMP3M, PHOS3, MG3, CK3 #### [address] #### VD25H #### [facility] [address] [place] [address] Platelets #/vol (Bld) 425 10*3/uL Normal 140-440 [facility] Comment on above: Performed By: #### H EMDF, PT, BMP3M, PHOS3, MG3, CK3 #### [address] #### VD25H #### [facility] [address] [place] [address] RBC #/vol (Bld) 3.65 10*6/uL Low 4.40-5.90 [facility] Comment on above: Performed By: #### H EMDF, PT, BMP3M, PHOS3, MG3, CK3 #### [address] #### VD25H #### [facility] [address] [place] [address] WBC #/vol (Bld) 17.4 10*3/uL High 3.6-10.7 [facility] Comment on above: Performed By: #### H EMDF, PT, BMP3M, PHOS3, MG3, CK3 #### [address] #### VD25H #### [facility] [address] [place] [address] Basic Metabolic Panelon 04-0 Calcium mass conc 8.3 mg/dL Low 8.4-10.[address] [facility] Comment on above: Performed By: #### H EMDF, PT, BMP3M, PHOS3, MG3, CK3 #### [address] [place] [address] #### VD25H #### [facility] [address] [place] [address] Glucose mass conc 114 mg/dL High 70-100 [facility] Comment on above: Performed By: #### H EMDF, PT, BMP3M, PHOS3, MG3, CK3 #### [address] [place] [address] #### VD25H #### [facility] [address] [place] [address] Anion gap molar conc 10 Normal [facility] Comment on above: Performed By: #### H EMDF, PT, BMP3M, PHOS3, MG3, CK3 #### [address] [place] [address] #### VD25H #### [facility] [address] [place] [address] CO2 molar conc 34 mmol/L High 22-30 [facility] Comment on above: Performed By: #### H EMDF, PT, BMP3M, PHOS3, MG3, CK3 #### [address] #### VD25H #### [facility] [address] [place] [address] Creatinine mass conc 0.52 mg/dL Normal 0.52-1.25 [facility] Comment on above: Performed By: #### H EMDF, PT, BMP3M, PHOS3, MG3, CK3 #### [address] [place] [address] #### VD25H #### [facility] [address] [place] [address] GFR/1.73 sq M predicted among blacks MDRD vol rate/area (S/P/Bld) mL/min/{1.73_m2} Normal >60 [facility] Comment on above: Performed By: #### H EMDF, PT, BMP3M, PHOS3, MG3, CK3 #### [address] [place], [place] #### VD25H #### [facility] [address] [place] [address] GFR/1.73 sq M predicted among non-blacks MDRD vol rate/area (S/P/Bld) mL/min/{1.73_m2} Normal >60 [facility] Comment on above: Result Comment: Sour ce- MDRD equation with creatinine calibration to IDMS(NKDEP) eGFR not recommended for drug dose adjustment Performed By: #### H EMDF, PT, BMP3M, PHOS3, MG3, CK3 #### [address] [facility], [place] #### VD25H #### [facility] [address] [place] [address] Urea nitrogen mass conc 23 mg/dL High 7-20 [facility] Comment on above: Performed By: #### H EMDF, PT, BMP3M, PHOS3, MG3, CK3 #### [address] [facility], [place] #### VD25H #### [facility] [address] [place] [address] Chloride molar conc 95 mmol/L Low 98-107 [facility] Comment on above: Performed By: #### H EMDF, PT, BMP3M, PHOS3, MG3, CK3 #### [address] [facility], [place] #### VD25H #### [facility] [address] [place] [address] Potassium molar conc 3.7 mmol/L Normal 3.5-5.1 [facility] Comment on above: Performed By: #### H EMDF, PT, BMP3M, PHOS3, MG3, CK3 #### [facility] [address] [facility], [place] #### VD25H #### [facility] [address] [place] [address] Sodium molar conc 139 mmol/L Normal 135-145 [facility] Comment on above: Performed By: #### H EMDF, PT, BMP3M, PHOS3, MG3, CK3 #### [facility] [address] [place], [place] #### VD25H #### [facility] [address] [place] [address] Hemogram w/ Autodiffon 07-31 Abs Baso Cnt 0.2 10*3/uL Normal 0.0-0.2 [facility] Comment on above: Performed By: #### H EMDF, PT, BMP3M, PHOS3, MG3, CK3 #### [address] #### VD25H #### [facility] [address] [place] [address] Abs Neutrophile Cnt 13.4 10*3/uL High 1.8-7.0 [facility] Comment on above: Performed By: #### H EMDF, PT, BMP3M, PHOS3, MG3, CK3 #### [address] #### VD25H #### [facility] [address] [place] [address] Basophils/100 WBC (Bld) 1.0 % Normal 0.0-2.0 [facility] Comment on above: Performed By: #### H EMDF, PT, BMP3M, PHOS3, MG3, CK3 #### [address] #### VD25H #### [facility] [address] [place] [address] Eosinophils #/vol (Bld) 0.5 10*3/uL Normal 0.0-0.5 [facility] Comment on above: Performed By: #### H EMDF, PT, BMP3M, PHOS3, MG3, CK3 #### [address] #### VD25H #### [facility] [address] [place] [address] Eosinophils/100 WBC (Bld) 3.1 % Normal 1.0-6.0 [facility] Comment on above: Performed By: #### H EMDF, PT, BMP3M, PHOS3, MG3, CK3 #### [facility] [address] [place], [place] #### VD25H #### [facility] [address] [place] [address] Erythrocyte distribution width Ratio (RBC) 14.0 % Normal 11.5-14.5 [facility] Comment on above: Performed By: #### H EMDF, PT, BMP3M, PHOS3, MG3, CK3 #### [address] #### VD25H #### [facility] [address] [place] [address] Granulocytes/100 WBC (Bld) 80.6 % High 40.0-80.0 [facility] Comment on above: Performed By: #### H EMDF, PT, BMP3M, PHOS3, MG3, CK3 #### [address] #### VD25H #### [facility] [address] [place] [address] Hematocrit Volume Fraction (Bld) 32.3 % Low 40.0-52.0 [facility] Comment on above: Performed By: #### H EMDF, PT, BMP3M, PHOS3, MG3, CK3 #### [address] [place], [place] #### VD25H #### [facility] [address] [place] [address] Hemoglobin mass conc (Bld) 10.8 g/dL Low 13.0-18.0 [facility] Comment on above: Performed By: #### H EMDF, PT, BMP3M, PHOS3, MG3, CK3 #### [address] #### VD25H #### [facility] [address] [place] [address] Lymphocytes #/vol (Bld) 1.6 10*3/uL Normal 1.0-4.3 [facility] Comment on above: Performed By: #### H EMDF, PT, BMP3M, PHOS3, MG3, CK3 #### [address] [place], [place] #### VD25H #### [facility] [address] [place] [address] Lymphocytes/100 WBC (Bld) 9.8 % Low 20.0-40.0 [facility] Comment on above: Performed By: #### H EMDF, PT, BMP3M, PHOS3, MG3, CK3 #### [address] #### VD25H #### [place] [address] [place] [address] MCH Entitic mass (RBC) 28.9 pg Normal 26.0-34.0 [facility] Comment on above: Performed By: #### H EMDF, PT, BMP3M, PHOS3, MG3, CK3 #### [address] #### VD25H #### [facility] [address] [place] [address] MCHC mass conc (RBC) 33.6 % Normal 32.0-36.0 [facility] Comment on above: Performed By: #### H EMDF, PT, BMP3M, PHOS3, MG3, CK3 #### [address] #### VD25H #### [facility] [address] [place] [address] MCV Entitic volume (RBC) 86.1 fL Normal 80.0-98.0 [facility] Comment on above: Performed By: #### H EMDF, PT, BMP3M, PHOS3, MG3, CK3 #### [address] #### VD25H #### [facility] [address] [place] [place] [address] Monocytes #/vol (Bld) 0.9 10*3/uL High 0.0-0.8 [facility] Comment on above: Performed By: #### H EMDF, PT, BMP3M, PHOS3, MG3, CK3 #### [address] #### VD25H #### [facility] [address] [place] [address] Monocytes/100 WBC (Bld) 5.5 % Normal 2.0-10.0 [facility] Comment on above: Performed By: #### H EMDF, PT, BMP3M, PHOS3, MG3, CK3 #### [address] #### VD25H #### [place] [address] [place] [address] Platelet mean volume Entitic volume (Bld) 8.2 fL Normal 7.4-10.4 [facility] Comment on above: Performed By: #### H EMDF, PT, BMP3M, PHOS3, MG3, CK3 #### [address] #### VD25H #### [place] [address] [place] [address] Platelets #/vol (Bld) 475 10*3/uL High 140-440 [facility] Comment on above: Performed By: #### H EMDF, PT, BMP3M, PHOS3, MG3, CK3 #### [address] #### VD25H #### [place] [address] [place] [address] RBC #/vol (Bld) 3.75 10*6/uL Low 4.40-5.90 [facility] Comment on above: Performed By: #### H EMDF, PT, BMP3M, PHOS3, MG3, CK3 #### [address] #### VD25H #### [facility] [address] [place] [address] WBC #/vol (Bld) 16.6 10*3/uL High 3.6-10.7 [facility] Comment on above: Performed By: #### H EMDF, PT, BMP3M, PHOS3, MG3, CK3 #### [address] #### VD25H #### [facility] [address] [place] [address] Magnesiumon 07-31-2018 Magnesium mass conc 2.4 mg/dL High 1.6-2.3 [facility] Comment on above: Performed By: #### H EMDF, PT, BMP3M, PHOS3, MG3, CK3 #### [address] #### VD25H #### [facility] [address] [place] [address] Phosphoruson 07-31-2018 Phosphate mass conc 4.5 mg/dL Normal 2.5-4.5 [facility] Comment on above: Performed By: #### H EMDF, PT, BMP3M, PHOS3, MG3, CK3 #### [address] #### VD25H #### [facility] [address] [place] [address] Basic Metabolic Panelon 04-0 Calcium mass conc 8.6 mg/dL Normal 8.4-10.4 [facility] Comment on above: Performed By: #### H EMDF, PT, BMP3M, PHOS3, MG3, CK3 #### [address] #### VD25H #### [facility] [address] [place] [address] Anion gap molar conc 8 Normal [facility] Comment on above: Performed By: #### H EMDF, PT, BMP3M, PHOS3, MG3, CK3 #### [address] #### VD25H #### [facility] [address] [place] [address] CO2 molar conc 34 mmol/L High 22-30 [facility] Comment on above: Performed By: #### H EMDF, PT, BMP3M, PHOS3, MG3, CK3 #### [address] #### VD25H #### [facility] [address] [place] [address] Creatinine mass conc 0.56 mg/dL Normal 0.52-1.25 [facility] Comment on above: Performed By: #### H EMDF, PT, BMP3M, PHOS3, MG3, CK3 #### [address] #### VD25H #### [facility] [address] [place] [address] GFR/1.73 sq M predicted among blacks MDRD vol rate/area (S/P/Bld) mL/min/{1.73_m2} Normal >60 [facility] Comment on above: Performed By: #### H EMDF, PT, BMP3M, PHOS3, MG3, CK3 #### [address] #### VD25H #### [address] [place] [address] GFR/1.73 sq M predicted among non-blacks MDRD vol rate/area (S/P/Bld) mL/min/{1.73_m2} Normal >60 [facility] Comment on above: Result Comment: Sour ce- MDRD equation with creatinine calibration to IDMS(NKDEP) eGFR not recommended for drug dose adjustment Performed By: #### H EMDF, PT, BMP3M, PHOS3, MG3, CK3 #### [address] #### VD25H #### [facility] [address] [place] [address] Glucose mass conc 121 mg/dL High 70-100 [facility] Comment on above: Performed By: #### H EMDF, PT, BMP3M, PHOS3, MG3, CK3 #### [facility] [address] [facility], [place] #### VD25H #### [facility] [address] [place] [address] Urea nitrogen mass conc 29 mg/dL High 7-20 [facility] Comment on above: Performed By: #### H EMDF, PT, BMP3M, PHOS3, MG3, CK3 #### [place] [address] [address] [facility], [place] #### VD25H #### [facility] [address] [place] [address] Chloride molar conc 99 mmol/L Normal 98-107 [facility] Comment on above: Performed By: #### H EMDF, PT, BMP3M, PHOS3, MG3, CK3 #### [place] [address] [facility], [place] #### VD25H #### [facility] [address] [place] [address] Potassium molar conc 3.7 mmol/L Normal 3.5-5.1 [facility] Comment on above: Performed By: #### H EMDF, PT, BMP3M, PHOS3, MG3, CK3 #### [facility] [address] [facility], [place] #### VD25H #### [facility] [address] [place] [address] Sodium molar conc 141 mmol/L Normal 135-145 [facility] Comment on above: Performed By: #### H EMDF, PT, BMP3M, PHOS3, MG3, CK3 #### [place] [address] [address] [facility], [place] #### VD25H #### [facility] [address] [place] [address] CR Abdomen APon 07-30-2018 CR Abdomen AP Patient Name: KATHYA HOOPER Diagnostic Radiology Exam Date/Time 07/30/2018 10:28:42 EDT Exam CR Abdomen AP Ordering Physician INDRA JACOBSON Accession Number [id number] CPT4 Codes 42315 () Reason For Exam abd distension Report [...] Transcribed Date and Time: 07/30/2018 3:57 Normal [facility] CR Chest Portableon 07-31-19 19 CR Chest Portable Patient Name: KATHYA HOOPER Diagnostic Radiology Exam Date/Time 07/30/2018 12:28:13 EDT Exam CR Chest Portable Ordering Physician SALO DAVIS Accession Number [id number] CPT4 Codes 79124 () Reason For Exam line reposition Report [...] Transcribed Date and Time: 07/30/2018 1:32 Normal [facility] CR Chest Portable Patient Name: KATHYA HOOPER Diagnostic Radiology Exam Date/Time 07/30/2018 06:40:08 EDT Exam CR Chest Portable Ordering Physician MARIA EUGENIA PEREZ Accession Number [id number] CPT4 Codes 16895 () Reason For Exam ETT placement Report [...] Transcribed Date and Time: 07/30/2018 10:26 Normal [facility] Glucose,Bedsideon 07-30-2018 Glucose mass conc 125 mg/dL High 70-100 [email or web address] [facility] Comment on above: Result Comment: Test performed by glucose meter. Results may be 10%-15% lower than serum/plasma values. (CLIA ID [id number]) Performed By: #### H EMDF, PT, BMP3M, PHOS3, MG3, CK3 #### [address] #### VD25H #### [facility] [address] [place] [address] Glucose mass conc 117 mg/dL High 70-100 [facility] Comment on above: Result Comment: Test performed by glucose meter. Results may be 10%-15% lower than serum/plasma values. (CLIA ID [id number]) Performed By: #### H EMDF, PT, BMP3M, PHOS3, MG3, CK3 #### [address] #### VD25H #### [place] [address] [place] [address] Glucose mass conc 44 mg/dL Low 70-100 [facility] Comment on above: Result Comment: Repe ated Test; Test performed by glucose meter. Results may be 10%-15% lower than serum/plasma values. (CLIA ID [id number]) Performed By: #### H EMDF, PT, BMP3M, PHOS3, MG3, CK3 #### [address] #### VD25H #### [place] [address] [facility] [place] [address] Hemogram w/ Autodiffon 07-30 Abs Baso Cnt 0.2 10*3/uL Normal 0.0-0.2 [facility] Comment on above: Performed By: #### H EMDF, PT, BMP3M, PHOS3, MG3, CK3 #### [address] #### VD25H #### [facility] [address] [place] [address] Abs Neutrophile Cnt 13.2 10*3/uL High 1.8-7.0 [facility] Comment on above: Performed By: #### H EMDF, PT, BMP3M, PHOS3, MG3, CK3 #### [facility] [address] [place], [place] #### VD25H #### [facility] [address] [place] [address] Basophils/100 WBC (Bld) 0.9 % Normal 0.0-2.0 [facility] Comment on above: Performed By: #### H EMDF, PT, BMP3M, PHOS3, MG3, CK3 #### [facility] [address] [place], [place] #### VD25H #### [facility] [address] [place] [address] Eosinophils #/vol (Bld) 0.5 10*3/uL Normal 0.0-0.5 [facility] Comment on above: Performed By: #### H EMDF, PT, BMP3M, PHOS3, MG3, CK3 #### [address] #### VD25H #### [facility] [address] [place] [address] Eosinophils/100 WBC (Bld) 2.8 % Normal 1.0-6.0 [facility] Comment on above: Performed By: #### H EMDF, PT, BMP3M, PHOS3, MG3, CK3 #### [address] #### VD25H #### [facility] [address] [place] [address] Erythrocyte distribution width Ratio (RBC) 13.7 % Normal 11.5-14.5 [facility] Comment on above: Performed By: #### H EMDF, PT, BMP3M, PHOS3, MG3, CK3 #### [address] #### VD25H #### [facility] [address] [place] [address] Granulocytes/100 WBC (Bld) 76.6 % Normal 40.0-80.0 [facility] Comment on above: Performed By: #### H EMDF, PT, BMP3M, PHOS3, MG3, CK3 #### [facility] [address] [place], [place] #### VD25H #### [facility] [address] [place] [address] Hematocrit Volume Fraction (Bld) 31.4 % Low 40.0-52.0 [facility] Comment on above: Performed By: #### H EMDF, PT, BMP3M, PHOS3, MG3, CK3 #### [address] #### VD25H #### [facility] [address] [place] [address] Hemoglobin mass conc (Bld) 10.6 g/dL Low 13.0-18.0 [facility] Comment on above: Performed By: #### H EMDF, PT, BMP3M, PHOS3, MG3, CK3 #### [place] [address] [address] [place], [place] #### VD25H #### [facility] [address] [place] [address] Lymphocytes #/vol (Bld) 2.2 10*3/uL Normal 1.0-4.3 [facility] Comment on above: Performed By: #### H EMDF, PT, BMP3M, PHOS3, MG3, CK3 #### [place] [address] [place] #### VD25H #### [facility] [address] [place] [place] [address] Lymphocytes/100 WBC (Bld) 12.9 % Low 20.0-40.0 [facility] Comment on above: Performed By: #### H EMDF, PT, BMP3M, PHOS3, MG3, CK3 #### [address] #### VD25H #### [facility] [address] [place] [address] MCH Entitic mass (RBC) 29.2 pg Normal 26.0-34.0 [facility] Comment on above: Performed By: #### H EMDF, PT, BMP3M, PHOS3, MG3, CK3 #### [facility] [address] [place], [place] #### VD25H #### [facility] [address] [place] [address] MCHC mass conc (RBC) 33.8 % Normal 32.0-36.0 [facility] Comment on above: Performed By: #### H EMDF, PT, BMP3M, PHOS3, MG3, CK3 #### [address] #### VD25H #### [facility] [address] [place] [address] MCV Entitic volume (RBC) 86.4 fL Normal 80.0-98.0 [facility] Comment on above: Performed By: #### H EMDF, PT, BMP3M, PHOS3, MG3, CK3 #### [address] #### VD25H #### [facility] [address] [place] [address] Monocytes #/vol (Bld) 1.2 10*3/uL High 0.0-0.8 [facility] Comment on above: Performed By: #### H EMDF, PT, BMP3M, PHOS3, MG3, CK3 #### [address] #### VD25H #### [facility] [address] [place] [address] Monocytes/100 WBC (Bld) 6.8 % Normal 2.0-10.0 [facility] Comment on above: Performed By: #### H EMDF, PT, BMP3M, PHOS3, MG3, CK3 #### [address] #### VD25H #### [facility] [address] [place] [address] Platelet mean volume Entitic volume (Bld) 8.1 fL Normal 7.4-10.4 [facility] Comment on above: Performed By: #### H EMDF, PT, BMP3M, PHOS3, MG3, CK3 #### [facility] [address] [place], [place] #### VD25H #### [facility] [address] [place] [address] Platelets #/vol (Bld) 507 10*3/uL High 140-440 [facility] Comment on above: Performed By: #### H EMDF, PT, BMP3M, PHOS3, MG3, CK3 #### [address] #### VD25H #### [facility] [address] [place] [address] RBC #/vol (Bld) 3.64 10*6/uL Low 4.40-5.90 [facility] Comment on above: Performed By: #### H EMDF, PT, BMP3M, PHOS3, MG3, CK3 #### [address] #### VD25H #### [facility] [address] [place] [address] WBC #/vol (Bld) 17.2 10*3/uL High 3.6-10.7 [facility] Comment on above: Performed By: #### H EMDF, PT, BMP3M, PHOS3, MG3, CK3 #### [address] #### VD25H #### [facility] [address] [place] [address] Magnesiumon 07-30-2018 Magnesium mass conc 2.5 mg/dL High 1.6-2.3 [facility] Comment on above: Performed By: #### H EMDF, PT, BMP3M, PHOS3, MG3, CK3 #### [address] #### VD25H #### [facility] [address] [place] [address] Phosphoruson 07-30-2018 Phosphate mass conc 4.5 mg/dL Normal 2.5-4.5 [facility] Comment on above: Performed By: #### H EMDF, PT, BMP3M, PHOS3, MG3, CK3 #### [facility] [address] [place] [address] #### VD25H #### [facility] [address] [place] [address] VL Venous Duplex US Lower Ex t Bilateralon 07-30-2018 VL Venous Duplex US Lower Ext Bilateral Patient Name: KATHYA HOOPER Ultrasound Exam Date/Time 07/30/2018 12:27:47 EDT Exam VL Venous Duplex US Lower Ext Bilateral Ordering Physician ETIENNE MARTÍNEZ JULIE Accession Number [id number] CPT4 Codes 91030 () Reason For Exam edema Report [facility] --- Lower Extremity Venous Duplex Report Patient Name: Kathya Hooper : 1955 Study Date: 07/30/2018 [place] (63yrs) Age: 63 Account: [id number] Gender: M Loc: [id number] BP: Ordering: Yesenia Martínez Technologist: Ordering Physician: Yesenia Martínez Hammersmith Helper: Barbara Suarez RDMS, T Interpreting Physician: Krysta Arora --- Location: [facility] --- INDICATIONS: Edema. --- CONCLUSIONS 1. Normal [...] performed. The images were obtained using a Unblab E9 vascular ultrasound machine. --- VENOUS FLOW [...] ---------+-------+--- --+ Electronically signed by: Krysta Arora [id number] Final Dictated: 07/30/2018 1:30 pm Dictating Physician: KRYSTA ARORA Signed Date and Time: 07/30/2018 1:29 pm Signed by: KRYSTA ARORA [facility] Arterial Blood Gaseson 07-29 CO2 molar conc 34.4 mmol/L High 23.0-27.0 [facility] Comment on above: Performed By: #### H EMDF, PT, BMP3M, PHOS3, MG3, CK3 #### [facility] [address] [place], [place] #### VD25H #### [facility] [address] [place] [address] HCO3 molar conc (Bld) 33.0 mmol/L High 21.0-25.0 [facility] Comment on above: Performed By: #### H EMDF, PT, BMP3M, PHOS3, MG3, CK3 #### [address] #### VD25H #### [facility] [address] [place] [address] Hemoglobin mass conc (Bld) 11.5 g/dL Normal ScreenOnly [facility] Comment on above: Performed By: #### H EMDF, PT, BMP3M, PHOS3, MG3, CK3 #### [address] #### VD25H #### [facility] [address] [place] [address] Oxygen ppres (Bld) 84.2 mm[Hg] Normal 80.0-100.0 [facility] Comment on above: Performed By: #### H EMDF, PT, BMP3M, PHOS3, MG3, CK3 #### [address] #### VD25H #### [facility] [address] [place] [address] Oxygen saturation in Blood 96.2 % Normal 95.0-100.0 [facility] Comment on above: Performed By: #### H EMDF, PT, BMP3M, PHOS3, MG3, CK3 #### [address] #### VD25H #### [facility] [address] [place] [address] pCO2 46.8 mm[Hg] High 35.0-45.0 [facility] Comment on above: Performed By: #### H EMDF, PT, BMP3M, PHOS3, MG3, CK3 #### [place] [address] [place] [address] #### VD25H #### [facility] [address] [place] [address] pH (Bld) 7.466 High 7.350-7.450 [facility] Comment on above: Performed By: #### H EMDF, PT, BMP3M, PHOS3, MG3, CK3 #### [address] #### VD25H #### [place] [address] [place] [address] Std Base Excess 8.2 mmol/L High -3.0-3.0 [facility] Comment on above: Performed By: #### H EMDF, PT, BMP3M, PHOS3, MG3, CK3 #### [address] #### VD25H #### [place] [address] [place] [address] FIO2 .30 Normal [facility] Comment on above: Performed By: #### H EMDF, PT, BMP3M, PHOS3, MG3, CK3 #### [address] #### VD25H #### [place] [address] [place] [address] Basic Metabolic Panelon 03- Calcium mass conc 8.5 mg/dL Normal 8.4-10.4 [facility] Comment on above: Performed By: #### H EMDF, PT, BMP3M, PHOS3, MG3, CK3 #### [address] #### VD25H #### [place] [address] [place] [address] Glucose mass conc 163 mg/dL High 70-100 [facility] Comment on above: Performed By: #### H EMDF, PT, BMP3M, PHOS3, MG3, CK3 #### [address] [place] [address] #### VD25H #### [facility] [address] [place] [address] Anion gap molar conc 10 Normal [facility] Comment on above: Performed By: #### H EMDF, PT, BMP3M, PHOS3, MG3, CK3 #### [address] #### VD25H #### [facility] [address] [place] [address] CO2 molar conc 37 mmol/L High 22-30 [facility] Comment on above: Performed By: #### H EMDF, PT, BMP3M, PHOS3, MG3, CK3 #### [address] #### VD25H #### [facility] [address] [place] [address] Creatinine mass conc 0.57 mg/dL Normal 0.52-1.25 [facility] Comment on above: Performed By: #### H EMDF, PT, BMP3M, PHOS3, MG3, CK3 #### [address] #### VD25H #### [facility] [address] [place] [address] GFR/1.73 sq M predicted among blacks MDRD vol rate/area (S/P/Bld) mL/min/{1.73_m2} Normal >60 [facility] Comment on above: Performed By: #### H EMDF, PT, BMP3M, PHOS3, MG3, CK3 #### [address] #### VD25H #### [facility] [address] [place] [address] GFR/1.73 sq M predicted among non-blacks MDRD vol rate/area (S/P/Bld) mL/min/{1.73_m2} Normal >60 [facility] Comment on above: Result Comment: Sour ce- MDRD equation with creatinine calibration to IDMS(NKDEP) eGFR not recommended for drug dose adjustment Performed By: #### H EMDF, PT, BMP3M, PHOS3, MG3, CK3 #### [facility] [address] [place], [place] #### VD25H #### [facility] [address] [place] [address] Urea nitrogen mass conc 30 mg/dL High 7-20 [facility] Comment on above: Performed By: #### H EMDF, PT, BMP3M, PHOS3, MG3, CK3 #### [address] #### VD25H #### [facility] [address] [place] [address] Chloride molar conc 95 mmol/L Low 98-107 [facility] Comment on above: Performed By: #### H EMDF, PT, BMP3M, PHOS3, MG3, CK3 #### [facility] [address] [place], [place] #### VD25H #### [facility] [address] [place] [address] Potassium molar conc 3.3 mmol/L Low 3.5-5.1 [facility] Comment on above: Performed By: #### H EMDF, PT, BMP3M, PHOS3, MG3, CK3 #### [address] #### VD25H #### [facility] [address] [place] [address] Sodium molar conc 141 mmol/L Normal 135-145 [facility] Comment on above: Performed By: #### H EMDF, PT, BMP3M, PHOS3, MG3, CK3 #### [address] #### VD25H #### [facility] [address] [place] [address] CR Chest Portableon 07-30-19 CR Chest Portable Patient Name: KATHYA HOOPER Diagnostic Radiology Exam Date/Time 07/29/2018 07:01:44 EDT Exam CR Chest Portable Ordering Physician MARIA EUGENIA PEREZ Accession Number [id number] CPT4 Codes 65030 () Reason For Exam ETT placement Report [...] Transcribed Date and Time: 07/29/2018 9:04 Normal [facility] Glucose,Bedsideon 07-29-2018 Glucose mass conc 124 mg/dL High 70-[address] [facility] Comment on above: Result Comment: Test performed by glucose meter. Results may be 10%-15% lower than serum/plasma values. (CLIA ID [id number]) Performed By: #### H EMDF, PT, BMP3M, PHOS3, MG3, CK3 #### [facility] [address] [place], [place] #### VD25H #### [facility] [address] [place] [address] Glucose mass conc 175 mg/dL High 70-[address] [facility] [address] Comment on above: Result Comment: Test performed by glucose meter. Results may be 10%-15% lower than serum/plasma values. (CLIA ID [id number]) Performed By: #### H EMDF, PT, BMP3M, PHOS3, MG3, CK3 #### [facility] [employer] [address] #### VD25H #### [facility] [address] [place] [address] Glucose mass conc 138 mg/dL High 70-100 [facility] Comment on above: Result Comment: Test performed by glucose meter. Results may be 10%-15% lower than serum/plasma values. (CLIA ID [id number]) Performed By: #### H EMDF, PT, BMP3M, PHOS3, MG3, CK3 #### [facility] [address] #### VD25H #### [facility] [address] [place] [address] Glucose mass conc 147 mg/dL High 70-100 [facility] Comment on above: Result Comment: Test performed by glucose meter. Results may be 10%-15% lower than serum/plasma values. (CLIA ID [id number]) Performed By: #### H EMDF, PT, BMP3M, PHOS3, MG3, CK3 #### [employer] [address] #### VD25H #### [facility] [address] [place] [address] Hemogram w/ Autodiffon 07-29 Erythrocyte distribution width Ratio (RBC) 13.8 % Normal 11.5-14.5 [facility] Comment on above: Performed By: #### H EMDF, PT, BMP3M, PHOS3, MG3, CK3 #### [facility] [address] #### VD25H #### [facility] [address] [place] [address] Hematocrit Volume Fraction (Bld) 32.9 % Low 40.0-52.0 [facility] Comment on above: Performed By: #### H EMDF, PT, BMP3M, PHOS3, MG3, CK3 #### [address] [place], [place] #### VD25H #### [facility] [address] [place] [address] Hemoglobin mass conc (Bld) 11.0 g/dL Low 13.0-18.0 [facility] Comment on above: Performed By: #### H EMDF, PT, BMP3M, PHOS3, MG3, CK3 #### [address] #### VD25H #### [facility] [address] [place] [address] MCH Entitic mass (RBC) 29.0 pg Normal 26.0-34.0 [facility] Comment on above: Performed By: #### H EMDF, PT, BMP3M, PHOS3, MG3, CK3 #### [address] #### VD25H #### [facility] [address] [place] [address] MCHC mass conc (RBC) 33.6 % Normal 32.0-36.0 [facility] Comment on above: Performed By: #### H EMDF, PT, BMP3M, PHOS3, MG3, CK3 #### [address] #### VD25H #### [facility] [address] [place] [address] MCV Entitic volume (RBC) 86.3 fL Normal 80.0-98.0 [facility] Comment on above: Performed By: #### H EMDF, PT, BMP3M, PHOS3, MG3, CK3 #### [address] #### VD25H #### [facility] [address] [place] [address] Platelet mean volume Entitic volume (Bld) 8.1 fL Normal 7.4-10.4 [facility] Comment on above: Performed By: #### H EMDF, PT, BMP3M, PHOS3, MG3, CK3 #### [facility] [address] [place], [place] #### VD25H #### [facility] [address] [place] [address] Platelets #/vol (Bld) 501 10*3/uL High 140-440 [facility] Comment on above: Performed By: #### H EMDF, PT, BMP3M, PHOS3, MG3, CK3 #### [address] [place], [place] #### VD25H #### [facility] [address] [place] [address] RBC #/vol (Bld) 3.81 10*6/uL Low 4.40-5.90 [facility] Comment on above: Performed By: #### H EMDF, PT, BMP3M, PHOS3, MG3, CK3 #### [address] [place], [place] #### VD25H #### [facility] [address] [place] [address] WBC #/vol (Bld) 20.8 10*3/uL High 3.6-10.7 [facility] Comment on above: Performed By: #### H EMDF, PT, BMP3M, PHOS3, MG3, CK3 #### [address] [place], [place] #### VD25H #### [facility] [address] [place] [address] Magnesiumon 07-29-2018 Magnesium mass conc 2.5 mg/dL High 1.6-2.3 [facility] Comment on above: Performed By: #### H EMDF, PT, BMP3M, PHOS3, MG3, CK3 #### [address] #### VD25H #### [facility] [address] [place] [address] Manual Diffon 07-29-2018 Abs Neutrophile Cnt 17.3 10*3/uL High 2.2-8.2 [facility] Comment on above: Performed By: #### H EMDF, PT, BMP3M, PHOS3, MG3, CK3 #### [address] [place] #### VD25H #### [facility] [address] [place] [address] Bands 1 % Normal 0-3 [facility] Comment on above: Performed By: #### H EMDF, PT, BMP3M, PHOS3, MG3, CK3 #### [address] [place], [place] #### VD25H #### [facility] [address] [place] [address] Eosinophils #/vol (Bld) 0.6 10*3/uL High 0.0-0.5 [facility] Comment on above: Performed By: #### H EMDF, PT, BMP3M, PHOS3, MG3, CK3 #### [address] #### VD25H #### [facility] [address] [place] [address] Eosinophils/100 WBC (Bld) 3 % Normal 1-6 [facility] Comment on above: Performed By: #### H EMDF, PT, BMP3M, PHOS3, MG3, CK3 #### [address] [place] #### VD25H #### [facility] [address] [place] [address] Lymphocytes #/vol (Bld) 2.3 10*3/uL Normal 1.1-4.5 [facility] Comment on above: Performed By: #### H EMDF, PT, BMP3M, PHOS3, MG3, CK3 #### [address] [address] [place], [place] #### VD25H #### [place] [address] [place] [address] Lymphocytes/100 WBC (Bld) 11 % Low 20-40 [facility] Comment on above: Performed By: #### H EMDF, PT, BMP3M, PHOS3, MG3, CK3 #### [address] [place] #### VD25H #### [facility] [address] [place] [address] Metamyelocytes 1 % Abnormal <1 [facility] Comment on above: Performed By: #### H EMDF, PT, BMP3M, PHOS3, MG3, CK3 #### [address] #### VD25H #### [facility] [address] [place] [address] Monocytes #/vol (Bld) 0.4 10*3/uL Normal 0.2-1.1 [facility] Comment on above: Performed By: #### H EMDF, PT, BMP3M, PHOS3, MG3, CK3 #### [address] #### VD25H #### [facility] [address] [place] [address] Monocytes/100 WBC (Bld) 2 % Normal 2-10 [facility] Comment on above: Performed By: #### H EMDF, PT, BMP3M, PHOS3, MG3, CK3 #### [address] [place] #### VD25H #### [facility] [address] [place] [address] RBC morphology finding Nom (Bld) See Prev Normal [facility] Comment on above: Performed By: #### H EMDF, PT, BMP3M, PHOS3, MG3, CK3 #### [address] #### VD25H #### [facility] [address] [place] [address] Seg Neutrophils 82 % High 40-80 [facility] Comment on above: Performed By: #### H EMDF, PT, BMP3M, PHOS3, MG3, CK3 #### [facility] [address] [place] #### VD25H #### [facility] [address] [place] [address] Abs Baso Cnt 0.0 10*3/uL Normal 0.0-0.2 [facility] Comment on above: Performed By: #### H EMDF, PT, BMP3M, PHOS3, MG3, CK3 #### [address] #### VD25H #### [facility] [address] [place] [address] Basophils/100 WBC (Bld) 0 % Normal 0-2 [facility] Comment on above: Performed By: #### H EMDF, PT, BMP3M, PHOS3, MG3, CK3 #### [address] #### VD25H #### [facility] [address] [place] [address] Cells counted 100 Normal [facility] Comment on above: Performed By: #### H EMDF, PT, BMP3M, PHOS3, MG3, CK3 #### [address] #### VD25H #### [facility] [address] [place] [address] Phosphoruson 07-29-2018 Phosphate mass conc 4.2 mg/dL Normal 2.5-4.5 [facility] Comment on above: Performed By: #### H EMDF, PT, BMP3M, PHOS3, MG3, CK3 #### [address] #### VD25H #### [facility] [address] [place] [address] Procalcitoninon 07-29-2018 Protein mass conc 0.11 ng/mL Abnormal <0.10 [facility] Comment on above: Performed By: #### H EMDF, PT, BMP3M, PHOS3, MG3, CK3 #### [address] #### VD25H #### [facility] [address] [place] [address] Interpretation See Below Normal [facility] Comment on above: Result Comment: PCT <0.50 = Low risk of severe sepsis and/or septic shock. PCT >2.00 = High risk of severe sepsis and/or septic shock. Performed By: #### H EMDF, PT, BMP3M, PHOS3, MG3, CK3 #### [address] #### VD25H #### [place] [address] [place] [address] Vancomycin Troughon 07-30-19 Vancomycin Trough 12.2 ug/mL Low 15.0-20.0 [facility] Comment on above: Result Comment: . Performed By: #### H EMDF, PT, BMP3M, PHOS3, MG3, CK3 #### [address] #### VD25H #### [address] [place] [address] Basic Metabolic Panelon 07-01 Calcium mass conc 8.6 mg/dL Normal 8.4-10.4 [facility] Comment on above: Performed By: #### H EMDF, PT, BMP3M, PHOS3, MG3, CK3 #### [address] #### VD25H #### [facility] [address] [place] [address] Glucose mass conc 158 mg/dL High 70-100 [facility] Comment on above: Performed By: #### H EMDF, PT, BMP3M, PHOS3, MG3, CK3 #### [address] [place] [address] #### VD25H #### [facility] [address] [place] [address] Urea nitrogen mass conc 29 mg/dL High 7-20 [facility] Comment on above: Performed By: #### H EMDF, PT, BMP3M, PHOS3, MG3, CK3 #### [address] [place] [address] #### VD25H #### [facility] [address] [place] [address] Anion gap molar conc 9 Normal [facility] Comment on above: Performed By: #### H EMDF, PT, BMP3M, PHOS3, MG3, CK3 #### [address] [place] [address] #### VD25H #### [facility] [address] [place] [address] CO2 molar conc 32 mmol/L High 22-30 [facility] Comment on above: Performed By: #### H EMDF, PT, BMP3M, PHOS3, MG3, CK3 #### [address] [address] #### VD25H #### [facility] [address] [place] [address] Creatinine mass conc 0.61 mg/dL Normal 0.52-1.25 [facility] Comment on above: Performed By: #### H EMDF, PT, BMP3M, PHOS3, MG3, CK3 #### [address] [place] #### VD25H #### [facility] [address] [place] [address] GFR/1.73 sq M predicted among blacks MDRD vol rate/area (S/P/Bld) mL/min/{1.73_m2} Normal >60 [facility] Comment on above: Performed By: #### H EMDF, PT, BMP3M, PHOS3, MG3, CK3 #### [address] [place] #### VD25H #### [facility] [address] [place] [address] GFR/1.73 sq M predicted among non-blacks MDRD vol rate/area (S/P/Bld) mL/min/{1.73_m2} Normal >60 [facility] Comment on above: Result Comment: Sour ce- MDRD equation with creatinine calibration to IDMS(NKDEP) eGFR not recommended for drug dose adjustment Performed By: #### H EMDF, PT, BMP3M, PHOS3, MG3, CK3 #### [address] #### VD25H #### [facility] [address] [place] [address] Potassium molar conc 3.6 mmol/L Normal 3.5-5.1 [facility] Comment on above: Performed By: #### H EMDF, PT, BMP3M, PHOS3, MG3, CK3 #### [address] [place] #### VD25H #### [facility] [address] [place] [address] Chloride molar conc 100 mmol/L Normal 98-107 [facility] Comment on above: Performed By: #### H EMDF, PT, BMP3M, PHOS3, MG3, CK3 #### [address] #### VD25H #### [facility] [address] [place] [address] Sodium molar conc 141 mmol/L Normal 135-145 [facility] Comment on above: Performed By: #### H EMDF, PT, BMP3M, PHOS3, MG3, CK3 #### [address] #### VD25H #### [facility] [address] [place] [address] CR Chest Portableon 07-29-19 19 CR Chest Portable Patient Name: KATHYA HOOPER Diagnostic Radiology Exam Date/Time 07/28/2018 07:09:40 EDT Exam CR Chest Portable Ordering Physician BROOKSJACQUELINE MARIA EUGENIA Accession Number [id number] CPT4 Codes 23766 () Reason For Exam ETT placement Report [...] Transcribed Date and Time: 07/28/2018 7:16 Normal [facility] Glucose,Bedsideon 07-28-2018 Glucose mass conc 149 mg/dL High 70-[address] [facility] Comment on above: Result Comment: Test performed by glucose meter. Results may be 10%-15% lower than serum/plasma values. (CLIA ID [id number]) Performed By: #### H EMDF, PT, BMP3M, PHOS3, MG3, CK3 #### [facility] [address] [place] [address] #### VD25H #### [facility] [address] [place] [address] Glucose mass conc 142 mg/dL High 70-[address] [facility] Comment on above: Result Comment: Test performed by glucose meter. Results may be 10%-15% lower than serum/plasma values. (CLIA ID [id number]) Performed By: #### H EMDF, PT, BMP3M, PHOS3, MG3, CK3 #### [facility] [address] [place], [place] #### VD25H #### [facility] [address] [place] [address] Hemogram w/ Autodiffon 07-28 Erythrocyte distribution width Ratio (RBC) 13.8 % Normal 11.5-14.5 [facility] Comment on above: Performed By: #### H EMDF, PT, BMP3M, PHOS3, MG3, CK3 #### [address] #### VD25H #### [facility] [address] [place] [address] Hematocrit Volume Fraction (Bld) 33.0 % Low 40.0-52.0 [facility] Comment on above: Performed By: #### H EMDF, PT, BMP3M, PHOS3, MG3, CK3 #### [address] #### VD25H #### [facility] [address] [place] [address] Hemoglobin mass conc (Bld) 11.0 g/dL Low 13.0-18.0 [facility] Comment on above: Performed By: #### H EMDF, PT, BMP3M, PHOS3, MG3, CK3 #### [address] #### VD25H #### [facility] [address] [place] [address] MCH Entitic mass (RBC) 28.7 pg Normal 26.0-34.0 [facility] Comment on above: Performed By: #### H EMDF, PT, BMP3M, PHOS3, MG3, CK3 #### [address] #### VD25H #### [facility] [address] [place] [address] MCHC mass conc (RBC) 33.4 % Normal 32.0-36.0 [facility] Comment on above: Performed By: #### H EMDF, PT, BMP3M, PHOS3, MG3, CK3 #### [facility] [address] [place] #### VD25H #### [facility] [address] [place] [address] MCV Entitic volume (RBC) 86.0 fL Normal 80.0-98.0 [facility] Comment on above: Performed By: #### H EMDF, PT, BMP3M, PHOS3, MG3, CK3 #### [address] [place] #### VD25H #### [facility] [address] [place] [address] Platelet mean volume Entitic volume (Bld) 8.4 fL Normal 7.4-10.4 [facility] Comment on above: Performed By: #### H EMDF, PT, BMP3M, PHOS3, MG3, CK3 #### [address] #### VD25H #### [facility] [address] [place] [address] Platelets #/vol (Bld) 477 10*3/uL High 140-440 [facility] Comment on above: Performed By: #### H EMDF, PT, BMP3M, PHOS3, MG3, CK3 #### [address] #### VD25H #### [facility] [address] [place] [address] RBC #/vol (Bld) 3.84 10*6/uL Low 4.40-5.90 [facility] Comment on above: Performed By: #### H EMDF, PT, BMP3M, PHOS3, MG3, CK3 #### [address] [place] #### VD25H #### [facility] [address] [place] [address] WBC #/vol (Bld) 18.1 10*3/uL High 3.6-10.7 [facility] Comment on above: Performed By: #### H EMDF, PT, BMP3M, PHOS3, MG3, CK3 #### [address] [place] #### VD25H #### [facility] [address] [place] [address] Magnesiumon 07-28-2018 Magnesium mass conc 2.4 mg/dL High 1.6-2.3 [facility] Comment on above: Performed By: #### H EMDF, PT, BMP3M, PHOS3, MG3, CK3 #### [address] #### VD25H #### [place] [address] [place] [address] Manual Diffon 07-28-2018 Abs Neutrophile Cnt 14.8 10*3/uL High 2.2-8.2 [facility] Comment on above: Performed By: #### H EMDF, PT, BMP3M, PHOS3, MG3, CK3 #### [address] #### VD25H #### [facility] [address] [place] [address] Anisocytosis Ql (Bld) Slight Normal [facility] Comment on above: Performed By: #### H EMDF, PT, BMP3M, PHOS3, MG3, CK3 #### [address] #### VD25H #### [facility] [address] [place] [address] Hypochromia Slight Normal [facility] Comment on above: Performed By: #### H EMDF, PT, BMP3M, PHOS3, MG3, CK3 #### [address] #### VD25H #### [facility] [address] [place] [address] Lymphocytes #/vol (Bld) 1.3 10*3/uL Normal 1.1-4.5 [facility] Comment on above: Performed By: #### H EMDF, PT, BMP3M, PHOS3, MG3, CK3 #### [facility] [address] [place] #### VD25H #### [facility] [address] [place] [address] Lymphocytes/100 WBC (Bld) 7 % Low 20-40 [facility] Comment on above: Performed By: #### H EMDF, PT, BMP3M, PHOS3, MG3, CK3 #### [address] [place] #### VD25H #### [facility] [address] [place] [address] Microcytosis Slight Normal [facility] Comment on above: Performed By: #### H EMDF, PT, BMP3M, PHOS3, MG3, CK3 #### [address] [place] #### VD25H #### [facility] [address] [place] [address] Monocytes #/vol (Bld) 2.0 10*3/uL High 0.2-1.1 [facility] Comment on above: Performed By: #### H EMDF, PT, BMP3M, PHOS3, MG3, CK3 #### [address] [address] [place] #### VD25H #### [facility] [address] [place] [address] Monocytes/100 WBC (Bld) 11 % High 2-10 [facility] Comment on above: Performed By: #### H EMDF, PT, BMP3M, PHOS3, MG3, CK3 #### [address] [place] #### VD25H #### [facility] [address] [place] [address] RBC morphology finding Nom (Bld) ABNORMAL Normal [facility] Comment on above: Performed By: #### H EMDF, PT, BMP3M, PHOS3, MG3, CK3 #### [address] [place] #### VD25H #### [facility] [address] [place] [address] Seg Neutrophils 82 % High 40-80 [facility] Comment on above: Performed By: #### H EMDF, PT, BMP3M, PHOS3, MG3, CK3 #### [address] [place] #### VD25H #### [facility] [address] [place] [address] Abs Baso Cnt 0.0 10*3/uL Normal 0.0-0.2 [facility] Comment on above: Performed By: #### H EMDF, PT, BMP3M, PHOS3, MG3, CK3 #### [address] [place] #### VD25H #### [facility] [address] [place] [address] Bands 0 % Normal 0-3 [facility] Comment on above: Performed By: #### H EMDF, PT, BMP3M, PHOS3, MG3, CK3 #### [address] [place] #### VD25H #### [facility] [address] [place] [address] Basophils/100 WBC (Bld) 0 % Normal 0-2 [facility] Comment on above: Performed By: #### H EMDF, PT, BMP3M, PHOS3, MG3, CK3 #### [address] [place] #### VD25H #### [facility] [address] [place] [address] Cells counted 100 Normal [facility] Comment on above: Performed By: #### H EMDF, PT, BMP3M, PHOS3, MG3, CK3 #### [address] [place] #### VD25H #### [facility] [address] [place] [address] Eosinophils #/vol (Bld) 0.0 10*3/uL Normal 0.0-0.5 [facility] Comment on above: Performed By: #### H EMDF, PT, BMP3M, PHOS3, MG3, CK3 #### [address] [place] #### VD25H #### [facility] [address] [place] [address] Eosinophils/100 WBC (Bld) 0 % Low 1-6 [facility] Comment on above: Performed By: #### H EMDF, PT, BMP3M, PHOS3, MG3, CK3 #### [address] [place] #### VD25H #### [facility] [address] [place] [address] Phosphoruson 07-28-2018 Phosphate mass conc 4.4 mg/dL Normal 2.5-4.5 [facility] Comment on above: Performed By: #### H EMDF, PT, BMP3M, PHOS3, MG3, CK3 #### [address] [place] #### VD25H #### [facility] [address] [place] [address] Vancomycin Troughon 07-29-19 19 Vancomycin Trough 12.9 ug/mL Low 15.0-20.0 [facility] Comment on above: Result Comment: . Performed By: #### H EMDF, PT, BMP3M, PHOS3, MG3, CK3 #### [address] [place] #### VD25H #### [facility] [address] [place] [address] Arterial Blood Gaseson 07-27 CO2 molar conc 28.4 mmol/L High 23.0-27.0 [facility] Comment on above: Performed By: #### H EMDF, PT, BMP3M, PHOS3, MG3, CK3 #### [address] #### VD25H #### [facility] [address] [place] [address] HCO3 molar conc (Bld) 27.2 mmol/L High 21.0-25.0 [facility] Comment on above: Performed By: #### H EMDF, PT, BMP3M, PHOS3, MG3, CK3 #### [address] #### VD25H #### [facility] [address] [place] [address] Hemoglobin mass conc (Bld) 11.7 g/dL Normal ScreenOnly [facility] Comment on above: Performed By: #### H EMDF, PT, BMP3M, PHOS3, MG3, CK3 #### [address] #### VD25H #### [facility] [address] [place] [address] Oxygen ppres (Bld) 91.3 mm[Hg] Normal 80.0-100.0 [facility] Comment on above: Performed By: #### H EMDF, PT, BMP3M, PHOS3, MG3, CK3 #### [address] #### VD25H #### [facility] [address] [place] [address] Oxygen saturation in Blood 96.9 % Normal 95.0-100.0 [facility] Comment on above: Performed By: #### H EMDF, PT, BMP3M, PHOS3, MG3, CK3 #### [address] #### VD25H #### [facility] [address] [place] [address] pCO2 39.0 mm[Hg] Normal 35.0-45.0 [facility] Comment on above: Performed By: #### H EMDF, PT, BMP3M, PHOS3, MG3, CK3 #### [facility] [address] [place] #### VD25H #### [facility] [address] [place] [address] pH (Bld) 7.461 High 7.350-7.450 [facility] Comment on above: Performed By: #### H EMDF, PT, BMP3M, PHOS3, MG3, CK3 #### [address] [place] #### VD25H #### [facility] [address] [place] [address] Std Base Excess 3.2 mmol/L High -3.0-3.0 [facility] Comment on above: Performed By: #### H EMDF, PT, BMP3M, PHOS3, MG3, CK3 #### [address] [place] #### VD25H #### [facility] [address] [place] [address] FIO2 No data Normal [facility] Comment on above: Performed By: #### H EMDF, PT, BMP3M, PHOS3, MG3, CK3 #### [address] [place] #### VD25H #### [facility] [address] [place] [address] Basic Metabolic Panelon 03-2 Anion gap molar conc 12 Normal [facility] Comment on above: Performed By: #### H EMDF, PT, BMP3M, PHOS3, MG3, CK3 #### [address] [place] #### VD25H #### [facility] [address] [place] [address] Calcium mass conc 8.3 mg/dL Low 8.4-10.4 [facility] Comment on above: Performed By: #### H EMDF, PT, BMP3M, PHOS3, MG3, CK3 #### [address] [place] [address] #### VD25H #### [facility] [address] [place] [address] CO2 molar conc 28 mmol/L Normal 22-30 [facility] Comment on above: Performed By: #### H EMDF, PT, BMP3M, PHOS3, MG3, CK3 #### [address] [place] [address] #### VD25H #### [facility] [address] [place] [address] Glucose mass conc 156 mg/dL High 70-100 [facility] Comment on above: Performed By: #### H EMDF, PT, BMP3M, PHOS3, MG3, CK3 #### [address] #### VD25H #### [facility] [address] [place] [address] Urea nitrogen mass conc 21 mg/dL High 7-20 [facility] Comment on above: Performed By: #### H EMDF, PT, BMP3M, PHOS3, MG3, CK3 #### [address] [place] #### VD25H #### [facility] [address] [place] [address] Creatinine mass conc 0.53 mg/dL Normal 0.52-1.25 [facility] Comment on above: Performed By: #### H EMDF, PT, BMP3M, PHOS3, MG3, CK3 #### [address] #### VD25H #### [facility] [address] [place] [address] GFR/1.73 sq M predicted among blacks MDRD vol rate/area (S/P/Bld) mL/min/{1.73_m2} Normal >60 [facility] Comment on above: Performed By: #### H EMDF, PT, BMP3M, PHOS3, MG3, CK3 #### [address] [place] #### VD25H #### [facility] [address] [place] [address] GFR/1.73 sq M predicted among non-blacks MDRD vol rate/area (S/P/Bld) mL/min/{1.73_m2} Normal >60 [facility] Comment on above: Result Comment: Sour ce- MDRD equation with creatinine calibration to IDMS(NKDEP) eGFR not recommended for drug dose adjustment Performed By: #### H EMDF, PT, BMP3M, PHOS3, MG3, CK3 #### [address] [place] #### VD25H #### [facility] [address] [place] [address] Potassium molar conc 3.2 mmol/L Low 3.5-5.1 [facility] Comment on above: Performed By: #### H EMDF, PT, BMP3M, PHOS3, MG3, CK3 #### [address] [place] #### VD25H #### [facility] [address] [place] [address] Chloride molar conc 99 mmol/L Normal 98-107 [facility] Comment on above: Performed By: #### H EMDF, PT, BMP3M, PHOS3, MG3, CK3 #### [address] [place] #### VD25H #### [facility] [address] [place] [address] Sodium molar conc 139 mmol/L Normal 135-145 [facility] Comment on above: Performed By: #### H EMDF, PT, BMP3M, PHOS3, MG3, CK3 #### [address] [facility], [place] #### VD25H #### [facility] [address] [place] [address] CR Chest Portableon 07-28-19 19 CR Chest Portable Patient Name: KATHYA HOOPER Diagnostic Radiology Exam Date/Time 07/27/2018 07:08:59 EDT Exam CR Chest Portable Ordering Physician MARIA EUGENIA PEREZ Accession Number [id number] CPT4 Codes 39443 () Reason For Exam ETT placement Report [...] Transcribed Date and Time: 07/27/2018 8:[address]ucose,Bedsideon 07-27-2018 Glucose mass conc 151 mg/dL High 70-100 [facility] Comment on above: Result Comment: Test performed by glucose meter. Results may be 10%-15% lower than serum/plasma values. (CLIA ID [id number]) Performed By: #### H EMDF, PT, BMP3M, PHOS3, MG3, CK3 #### [facility] [address] [place] [address] #### VD25H #### [facility] [address] [place] [address] Glucose mass conc 131 mg/dL High 70-[address] [facility] Comment on above: Result Comment: Test performed by glucose meter. Results may be 10%-15% lower than serum/plasma values. (CLIA ID [id number]) Performed By: #### H EMDF, PT, BMP3M, PHOS3, MG3, CK3 #### [facility] [address] #### VD25H #### [facility] [address] [place] [address] Glucose mass conc 123 mg/dL High 70-100 [facility] Comment on above: Result Comment: Test performed by glucose meter. Results may be 10%-15% lower than serum/plasma values. (CLIA ID [id number]) Performed By: #### H EMDF, PT, BMP3M, PHOS3, MG3, CK3 #### [facility] [address] #### VD25H #### [employer] [facility] [address] [place] [address] Glucose mass conc 133 mg/dL High 70-100 [facility] Comment on above: Result Comment: Test performed by glucose meter. Results may be 10%-15% lower than serum/plasma values. (CLIA ID [id number]) Performed By: #### H EMDF, PT, BMP3M, PHOS3, MG3, CK3 #### [facility] [address] #### VD25H #### [employer] [address] [place] [address] Hemogram w/ Autodiffon 07-27 Erythrocyte distribution width Ratio (RBC) 13.5 % Normal 11.5-14.5 [facility] Comment on above: Performed By: #### H EMDF, PT, BMP3M, PHOS3, MG3, CK3 #### [employer] [address] #### VD25H #### [employer] [address] [place] [address] Hematocrit Volume Fraction (Bld) 32.5 % Low 40.0-52.0 [facility] Comment on above: Performed By: #### H EMDF, PT, BMP3M, PHOS3, MG3, CK3 #### [facility] [address] [place] [address], [place] #### VD25H #### [facility] [address] [facility] [place] [address] Hemoglobin mass conc (Bld) 11.1 g/dL Low 13.0-18.0 [facility] Comment on above: Performed By: #### H EMDF, PT, BMP3M, PHOS3, MG3, CK3 #### [address] #### VD25H #### [facility] [address] [place] [address] MCH Entitic mass (RBC) 29.2 pg Normal 26.0-34.0 [facility] Comment on above: Performed By: #### H EMDF, PT, BMP3M, PHOS3, MG3, CK3 #### [address] #### VD25H #### [place] [address] [facility] [place] [address] MCHC mass conc (RBC) 34.1 % Normal 32.0-36.0 [facility] Comment on above: Performed By: #### H EMDF, PT, BMP3M, PHOS3, MG3, CK3 #### [address] #### VD25H #### [place] [address] [place] [address] MCV Entitic volume (RBC) 85.7 fL Normal 80.0-98.0 [facility] Comment on above: Performed By: #### H EMDF, PT, BMP3M, PHOS3, MG3, CK3 #### [address] #### VD25H #### [place] [address] [facility] [place] [address] Platelet mean volume Entitic volume (Bld) 7.9 fL Normal 7.4-10.4 [facility] Comment on above: Performed By: #### H EMDF, PT, BMP3M, PHOS3, MG3, CK3 #### [place] [address] [place], [place] #### VD25H #### [facility] [address] [place] [address] Platelets #/vol (Bld) 466 10*3/uL High 140-440 [facility] Comment on above: Performed By: #### H EMDF, PT, BMP3M, PHOS3, MG3, CK3 #### [place] [address] [place], [place] #### VD25H #### [facility] [address] [place] [address] RBC #/vol (Bld) 3.79 10*6/uL Low 4.40-5.90 [facility] Comment on above: Performed By: #### H EMDF, PT, BMP3M, PHOS3, MG3, CK3 #### [place] [address] [place], [place] #### VD25H #### [facility] [address] [place] [address] WBC #/vol (Bld) 18.7 10*3/uL High 3.6-10.7 [facility] Comment on above: Performed By: #### H EMDF, PT, BMP3M, PHOS3, MG3, CK3 #### [address] #### VD25H #### [facility] [address] [place] [address] Magnesiumon 07-27-2018 Magnesium mass conc 2.1 mg/dL Normal 1.6-2.3 [facility] Comment on above: Performed By: #### H EMDF, PT, BMP3M, PHOS3, MG3, CK3 #### [address] [place], [place] #### VD25H #### [facility] [address] [place] [address] Manual Diffon 07-27-2018 RBC morphology finding Nom (Bld) Normal Normal [facility] Comment on above: Performed By: #### H EMDF, PT, BMP3M, PHOS3, MG3, CK3 #### [facility] [address] [place], [place] #### VD25H #### [facility] [address] [place] [address] Abs Neutrophile Cnt 14.2 10*3/uL High 2.2-8.2 [facility] Comment on above: Performed By: #### H EMDF, PT, BMP3M, PHOS3, MG3, CK3 #### [facility] [address] [place], [place] #### VD25H #### [facility] [address] [place] [address] Atypical Lymphocytes 2 % Abnormal <1 [facility] Comment on above: Performed By: #### H EMDF, PT, BMP3M, PHOS3, MG3, CK3 #### [address] #### VD25H #### [facility] [address] [place] [address] Bands 5 % High 0-3 [facility] Comment on above: Performed By: #### H EMDF, PT, BMP3M, PHOS3, MG3, CK3 #### [place] [address] [place], [place] #### VD25H #### [facility] [address] [place] [address] Eosinophils #/vol (Bld) 0.6 10*3/uL High 0.0-0.5 [facility] Comment on above: Performed By: #### H EMDF, PT, BMP3M, PHOS3, MG3, CK3 #### [address] [place], [place] #### VD25H #### [facility] [address] [place] [address] Eosinophils/100 WBC (Bld) 3 % Normal 1-6 [facility] Comment on above: Performed By: #### H EMDF, PT, BMP3M, PHOS3, MG3, CK3 #### [facility] [address] [place], [place] #### VD25H #### [facility] [address] [place] [address] Lymphocytes #/vol (Bld) 2.1 10*3/uL Normal 1.1-4.5 [facility] Comment on above: Performed By: #### H EMDF, PT, BMP3M, PHOS3, MG3, CK3 #### [facility] [address] [place], [place] #### VD25H #### [facility] [address] [place] [address] Lymphocytes/100 WBC (Bld) 11 % Low 20-40 [facility] Comment on above: Performed By: #### H EMDF, PT, BMP3M, PHOS3, MG3, CK3 #### [place] [address] [place], [place] #### VD25H #### [facility] [address] [place] [address] Monocytes #/vol (Bld) 1.5 10*3/uL High 0.2-1.1 [facility] Comment on above: Performed By: #### H EMDF, PT, BMP3M, PHOS3, MG3, CK3 #### [place] [address] [place], [place] #### VD25H #### [facility] [address] [place] [address] Monocytes/100 WBC (Bld) 8 % Normal 2-10 [facility] Comment on above: Performed By: #### H EMDF, PT, BMP3M, PHOS3, MG3, CK3 #### [place] [address] [place], [place] #### VD25H #### [facility] [address] [place] [address] NRBC 1 /100{WBCs} High -1-0 [facility] Comment on above: Result Comment: Newb orn (<60 days) 1-10 Adult <1 Performed By: #### H EMDF, PT, BMP3M, PHOS3, MG3, CK3 #### [address] #### VD25H #### [facility] [address] [place] [address] Seg Neutrophils 71 % Normal 40-80 [facility] Comment on above: Performed By: #### H EMDF, PT, BMP3M, PHOS3, MG3, CK3 #### [address] #### VD25H #### [facility] [address] [place] [address] Abs Baso Cnt 0.0 10*3/uL Normal 0.0-0.2 [facility] Comment on above: Performed By: #### H EMDF, PT, BMP3M, PHOS3, MG3, CK3 #### [address] #### VD25H #### [facility] [address] [place] [address] Basophils/100 WBC (Bld) 0 % Normal 0-2 [facility] Comment on above: Performed By: #### H EMDF, PT, BMP3M, PHOS3, MG3, CK3 #### [address] #### VD25H #### [facility] [address] [place] [address] Cells counted 100 Normal [facility] Comment on above: Performed By: #### H EMDF, PT, BMP3M, PHOS3, MG3, CK3 #### [address] #### VD25H #### [facility] [address] [place] [address] Phosphoruson 07-27-2018 Phosphate mass conc 3.0 mg/dL Normal 2.5-4.5 [facility] Comment on above: Performed By: #### H EMDF, PT, BMP3M, PHOS3, MG3, CK3 #### [facility] [address] [place] [address] #### VD25H #### [facility] [address] [place] [address] VL Venous Duplex US Lower Ex t Bilateralon 07-27-2018 VL Venous Duplex US Lower Ext Bilateral Patient Name: KATHYA HOOPER Ultrasound Exam Date/Time 07/27/2018 10:56:18 EDT Exam VL Venous Duplex US Lower Ext Bilateral Ordering Physician ETIENNE MARTÍNEZ JULIE Accession Number [id number] CPT4 Codes 71988 () Reason For Exam edema Report [facility] --- Lower Extremity Venous Duplex Report Patient Name: Kathya Hooper : 1955 Study Date: 07/27/2018 W (63yrs) Age: 63 Account: [id number] Gender: M Loc: T209 BP: Ordering: Yesenia Martínez Technologist: Ordering Physician: Yesenia Martínez Hammersmith Helper: Mary Man Lissette Interpreting Physician: Ricardo Hall MD --- Location: [facility] --- INDICATIONS: Bilateral leg edema. --- CONCLUSIONS [...] performed. The images were obtained using a Unblab E9 vascular ultrasound machine. The study was [...] --+ Electronically signed by: Ricardo Hall MD [id number] Final Dictated: 07/27/2018 12:55 pm Dictating Physician: RICARDO HALL Signed Date and Time: 07/27/2018 12:55 pm Signed by: RICARDO HALL Normal [facility] Basic Metabolic Panelon 06-30 Calcium mass conc 7.9 mg/dL Low 8.4-10.4 [facility] Comment on above: Performed By: #### H EMDF, PT, BMP3M, PHOS3, MG3, CK3 #### [address] #### VD25H #### [facility] [address] [facility] [place] [address] Anion gap molar conc 9 Normal [facility] Comment on above: Performed By: #### H EMDF, PT, BMP3M, PHOS3, MG3, CK3 #### [address] #### VD25H #### [facility] [address] [place] [address] CO2 molar conc 24 mmol/L Normal 22-30 [facility] Comment on above: Performed By: #### H EMDF, PT, BMP3M, PHOS3, MG3, CK3 #### [address] #### VD25H #### [facility] [address] [place] [address] Creatinine mass conc 0.54 mg/dL Normal 0.52-1.25 [facility] Comment on above: Performed By: #### H EMDF, PT, BMP3M, PHOS3, MG3, CK3 #### [facility] [address] [place] [address] #### VD25H #### [facility] [address] [place] [address] GFR/1.73 sq M predicted among blacks MDRD vol rate/area (S/P/Bld) mL/min/{1.73_m2} Normal >60 [facility] Comment on above: Performed By: #### H EMDF, PT, BMP3M, PHOS3, MG3, CK3 #### [place] [address] [place] [address] #### VD25H #### [facility] [address] [place] [address] GFR/1.73 sq M predicted among non-blacks MDRD vol rate/area (S/P/Bld) mL/min/{1.73_m2} Normal >60 [facility] Comment on above: Result Comment: Sour ce- MDRD equation with creatinine calibration to IDMS(NKDEP) eGFR not recommended for drug dose adjustment Performed By: #### H EMDF, PT, BMP3M, PHOS3, MG3, CK3 #### [place] [address] [place], [place] #### VD25H #### [facility] [address] [place] [address] Glucose mass conc 166 mg/dL High 70-100 [facility] Comment on above: Performed By: #### H EMDF, PT, BMP3M, PHOS3, MG3, CK3 #### [place] [address] [facility], [place] #### VD25H #### [facility] [address] [facility] [place] [address] Urea nitrogen mass conc 21 mg/dL High 7-20 [facility] Comment on above: Performed By: #### H EMDF, PT, BMP3M, PHOS3, MG3, CK3 #### [place] [address] [place] [place], [place] #### VD25H #### [facility] [address] [place] [address] Chloride molar conc 107 mmol/L Normal 98-107 [facility] Comment on above: Performed By: #### H EMDF, PT, BMP3M, PHOS3, MG3, CK3 #### [facility] [address] [place] [address] #### VD25H #### [facility] [address] [place] [address] Potassium molar conc 3.7 mmol/L Normal 3.5-5.1 [facility] Comment on above: Performed By: #### H EMDF, PT, BMP3M, PHOS3, MG3, CK3 #### [facility] [address] [place] [address] #### VD25H #### [facility] [address] [place] [address] Sodium molar conc 140 mmol/L Normal 135-145 [facility] Comment on above: Performed By: #### H EMDF, PT, BMP3M, PHOS3, MG3, CK3 #### [facility] [address] [place], [place] #### VD25H #### [facility] [address] [place] [address] CR Chest Portableon 07-27-19 19 CR Chest Portable Patient Name: KATHYA HOOPER Diagnostic Radiology Exam Date/Time 07/26/2018 06:06:25 EDT Exam CR Chest Portable Ordering Physician MARIA EUGENIA PEREZ Accession Number [id number] CPT4 Codes 82489 () Reason For Exam ETT placement Report [...] Transcribed Date and Time: 07/26/2018 9:15 Normal [facility] Glucose,Bedsideon 07-26-2018 Glucose mass conc 160 mg/dL High 70-[address] [facility] Comment on above: Result Comment: Test performed by glucose meter. Results may be 10%-15% lower than serum/plasma values. (CLIA ID [id number]) Performed By: #### H EMDF, PT, BMP3M, PHOS3, MG3, CK3 #### [facility] [address] [place] [address] #### VD25H #### [facility] [address] [place] [address] Glucose mass conc 166 mg/dL High 70-[address] [facility] Comment on above: Result Comment: Test performed by glucose meter. Results may be 10%-15% lower than serum/plasma values. (CLIA ID [id number]) Performed By: #### H EMDF, PT, BMP3M, PHOS3, MG3, CK3 #### [facility] [address] [place] [address] #### VD25H #### [facility] [address] [place] [address] Glucose mass conc 183 mg/dL High 70-[address] [facility] Comment on above: Result Comment: Test performed by glucose meter. Results may be 10%-15% lower than serum/plasma values. (CLIA ID [id number]) Performed By: #### H EMDF, PT, BMP3M, PHOS3, MG3, CK3 #### [facility] [address] [place] [address] #### VD25H #### [facility] [address] [place] [address] Glucose mass conc 151 mg/dL High 70-100 [facility] Comment on above: Result Comment: Test performed by glucose meter. Results may be 10%-15% lower than serum/plasma values. (CLIA ID [id number]) Performed By: #### H EMDF, PT, BMP3M, PHOS3, MG3, CK3 #### [address] #### VD25H #### [facility] [address] [place] [address] Hemogram w/ Autodiffon 07-26 Erythrocyte distribution width Ratio (RBC) 13.7 % Normal 11.5-14.5 [facility] Comment on above: Performed By: #### H EMDF, PT, BMP3M, PHOS3, MG3, CK3 #### [address] #### VD25H #### [facility] [address] [place] [address] Hematocrit Volume Fraction (Bld) 31.1 % Low 40.0-52.0 [facility] Comment on above: Performed By: #### H EMDF, PT, BMP3M, PHOS3, MG3, CK3 #### [address] #### VD25H #### [facility] [address] [place] [address] Hemoglobin mass conc (Bld) 10.6 g/dL Low 13.0-18.0 [facility] Comment on above: Performed By: #### H EMDF, PT, BMP3M, PHOS3, MG3, CK3 #### [address] #### VD25H #### [facility] [address] [place] [address] MCH Entitic mass (RBC) 29.2 pg Normal 26.0-34.0 [facility] Comment on above: Performed By: #### H EMDF, PT, BMP3M, PHOS3, MG3, CK3 #### [address] [place], [place] #### VD25H #### [facility] [address] [place] [address] MCHC mass conc (RBC) 34.0 % Normal 32.0-36.0 [facility] Comment on above: Performed By: #### H EMDF, PT, BMP3M, PHOS3, MG3, CK3 #### [place] [address] [place], [place] #### VD25H #### [facility] [address] [place] [address] MCV Entitic volume (RBC) 86.1 fL Normal 80.0-98.0 [facility] Comment on above: Performed By: #### H EMDF, PT, BMP3M, PHOS3, MG3, CK3 #### [address] #### VD25H #### [facility] [address] [place] [address] Platelet mean volume Entitic volume (Bld) 8.3 fL Normal 7.4-10.4 [facility] Comment on above: Performed By: #### H EMDF, PT, BMP3M, PHOS3, MG3, CK3 #### [address] #### VD25H #### [facility] [address] [place] [address] Platelets #/vol (Bld) 364 10*3/uL Normal 140-440 [facility] Comment on above: Performed By: #### H EMDF, PT, BMP3M, PHOS3, MG3, CK3 #### [address] #### VD25H #### [facility] [address] [place] [address] RBC #/vol (Bld) 3.62 10*6/uL Low 4.40-5.90 [facility] Comment on above: Performed By: #### H EMDF, PT, BMP3M, PHOS3, MG3, CK3 #### [facility] [address] [place], [place] #### VD25H #### [facility] [address] [place] [address] WBC #/vol (Bld) 15.2 10*3/uL High 3.6-10.7 [facility] Comment on above: Performed By: #### H EMDF, PT, BMP3M, PHOS3, MG3, CK3 #### [address] #### VD25H #### [facility] [address] [place] [address] Magnesiumon 07-26-2018 Magnesium mass conc 2.0 mg/dL Normal 1.6-2.3 [facility] Comment on above: Performed By: #### H EMDF, PT, BMP3M, PHOS3, MG3, CK3 #### [address] #### VD25H #### [facility] [address] [place] [address] Manual Diffon 07-26-2018 Abs Neutrophile Cnt 12.8 10*3/uL High 2.2-8.2 [facility] Comment on above: Performed By: #### H EMDF, PT, BMP3M, PHOS3, MG3, CK3 #### [address] #### VD25H #### [facility] [address] [place] [address] Lymphocytes #/vol (Bld) 1.4 10*3/uL Normal 1.1-4.5 [facility] Comment on above: Performed By: #### H EMDF, PT, BMP3M, PHOS3, MG3, CK3 #### [address] #### VD25H #### [facility] [address] [place] [address] Lymphocytes/100 WBC (Bld) 9 % Low 20-40 [facility] Comment on above: Performed By: #### H EMDF, PT, BMP3M, PHOS3, MG3, CK3 #### [facility] [address] [place], [place] #### VD25H #### [facility] [address] [place] [address] Monocytes #/vol (Bld) 1.1 10*3/uL Normal 0.2-1.1 [facility] Comment on above: Performed By: #### H EMDF, PT, BMP3M, PHOS3, MG3, CK3 #### [address] #### VD25H #### [facility] [address] [place] [address] Monocytes/100 WBC (Bld) 7 % Normal 2-10 [facility] Comment on above: Performed By: #### H EMDF, PT, BMP3M, PHOS3, MG3, CK3 #### [place] [address] [place], [place] #### VD25H #### [facility] [address] [place] [address] RBC morphology finding Nom (Bld) Normal Normal [facility] Comment on above: Performed By: #### H EMDF, PT, BMP3M, PHOS3, MG3, CK3 #### [place] [address] [place] #### VD25H #### [facility] [address] [place] [address] Seg Neutrophils 84 % High 40-80 [facility] Comment on above: Performed By: #### H EMDF, PT, BMP3M, PHOS3, MG3, CK3 #### [address] #### VD25H #### [facility] [address] [place] [address] Abs Baso Cnt 0.0 10*3/uL Normal 0.0-0.2 [facility] Comment on above: Performed By: #### H EMDF, PT, BMP3M, PHOS3, MG3, CK3 #### [facility] [address] [place], [place] #### VD25H #### [facility] [address] [place] [address] Bands 0 % Normal 0-3 [facility] Comment on above: Performed By: #### H EMDF, PT, BMP3M, PHOS3, MG3, CK3 #### [facility] [address] [place], [place] #### VD25H #### [facility] [address] [place] [address] Basophils/100 WBC (Bld) 0 % Normal 0-2 [facility] Comment on above: Performed By: #### H EMDF, PT, BMP3M, PHOS3, MG3, CK3 #### [place] [address] [place], [place] #### VD25H #### [facility] [address] [place] [address] Cells counted 100 Normal [facility] Comment on above: Performed By: #### H EMDF, PT, BMP3M, PHOS3, MG3, CK3 #### [place] [address] [place], [place] #### VD25H #### [facility] [address] [place] [address] Eosinophils #/vol (Bld) 0.0 10*3/uL Normal 0.0-0.5 [facility] Comment on above: Performed By: #### H EMDF, PT, BMP3M, PHOS3, MG3, CK3 #### [place] [address] [place], [place] #### VD25H #### [facility] [address] [place] [address] Eosinophils/100 WBC (Bld) 0 % Low 1-6 [facility] Comment on above: Performed By: #### H EMDF, PT, BMP3M, PHOS3, MG3, CK3 #### [address] #### VD25H #### [facility] [address] [place] [address] Phosphoruson 07-26-2018 Phosphate mass conc 3.1 mg/dL Normal 2.5-4.5 [facility] Comment on above: Performed By: #### H EMDF, PT, BMP3M, PHOS3, MG3, CK3 #### [address] #### VD25H #### [facility] [address] [place] [address] Vancomycin Troughon 07-27-19 19 Vancomycin Trough 8.9 ug/mL Low 15.0-20.0 [facility] Comment on above: Result Comment: . Performed By: #### H EMDF, PT, BMP3M, PHOS3, MG3, CK3 #### [address] #### VD25H #### [facility] [address] [place] [address] Arterial Blood Gaseson 07-25 CO2 molar conc 22.0 mmol/L Low 23.0-27.0 [facility] Comment on above: Performed By: #### H EMDF, PT, BMP3M, PHOS3, MG3, CK3 #### [address] #### VD25H #### [facility] [address] [place] [address] HCO3 molar conc (Bld) 21.1 mmol/L Normal 21.0-25.0 [facility] Comment on above: Performed By: #### H EMDF, PT, BMP3M, PHOS3, MG3, CK3 #### [address] #### VD25H #### [facility] [address] [place] [address] Hemoglobin mass conc (Bld) 10.1 g/dL Normal ScreenOnly [facility] Comment on above: Performed By: #### H EMDF, PT, BMP3M, PHOS3, MG3, CK3 #### [facility] [address] [place], [place] #### VD25H #### [facility] [address] [place] [address] Oxygen ppres (Bld) 88.3 mm[Hg] Normal 80.0-100.0 [facility] Comment on above: Performed By: #### H EMDF, PT, BMP3M, PHOS3, MG3, CK3 #### [place] [address] [place], [place] #### VD25H #### [facility] [address] [place] [address] Oxygen saturation in Blood 96.8 % Normal 95.0-100.0 [facility] Comment on above: Performed By: #### H EMDF, PT, BMP3M, PHOS3, MG3, CK3 #### [place] [address] [facility], [place] #### VD25H #### [facility] [address] [place] [address] pCO2 29.9 mm[Hg] Low 35.0-45.0 [facility] Comment on above: Performed By: #### H EMDF, PT, BMP3M, PHOS3, MG3, CK3 #### [facility] [address] [place], [place] #### VD25H #### [facility] [address] [place] [address] pH (Bld) 7.467 High 7.350-7.450 [facility] [facility] Comment on above: Performed By: #### H EMDF, PT, BMP3M, PHOS3, MG3, CK3 #### [place] [address] [facility], [place] #### VD25H #### [facility] [address] [place] [address] Std Base Excess -1.9 mmol/L Normal -3.0-3.0 [facility] Comment on above: Performed By: #### H EMDF, PT, BMP3M, PHOS3, MG3, CK3 #### [address] [place], [place] #### VD25H #### [facility] [address] [place] [address] FIO2 .30 Normal [facility] Comment on above: Performed By: #### H EMDF, PT, BMP3M, PHOS3, MG3, CK3 #### [address] [address] [place], [place] #### VD25H #### [facility] [address] [place] [address] Basic Metabolic Panelon 03-2 Calcium mass conc 8.1 mg/dL Low 8.4-10.4 [facility] Comment on above: Performed By: #### H EMDF, PT, BMP3M, PHOS3, MG3, CK3 #### [address] [address] [place], [place] #### VD25H #### [facility] [address] [place] [address] Anion gap molar conc 8 Normal [facility] Comment on above: Performed By: #### H EMDF, PT, BMP3M, PHOS3, MG3, CK3 #### [place] [address] [place], [place] #### VD25H #### [facility] [address] [place] [address] CO2 molar conc 24 mmol/L Normal 22-30 [facility] Comment on above: Performed By: #### H EMDF, PT, BMP3M, PHOS3, MG3, CK3 #### [address], [place] #### VD25H #### [facility] [address] [place] [address] Creatinine mass conc 0.55 mg/dL Normal 0.52-1.25 [facility] Comment on above: Performed By: #### H EMDF, PT, BMP3M, PHOS3, MG3, CK3 #### [address] [address] [place] [address] #### VD25H #### [facility] [address] [place] [address] GFR/1.73 sq M predicted among blacks MDRD vol rate/area (S/P/Bld) mL/min/{1.73_m2} Normal >60 [facility] Comment on above: Performed By: #### H EMDF, PT, BMP3M, PHOS3, MG3, CK3 #### [address] #### VD25H #### [facility] [address] [place] [address] GFR/1.73 sq M predicted among non-blacks MDRD vol rate/area (S/P/Bld) mL/min/{1.73_m2} Normal >60 [facility] Comment on above: Result Comment: Sour ce- MDRD equation with creatinine calibration to IDMS(NKDEP) eGFR not recommended for drug dose adjustment Performed By: #### H EMDF, PT, BMP3M, PHOS3, MG3, CK3 #### [address] #### VD25H #### [facility] [address] [place] [address] Glucose mass conc 184 mg/dL High 70-100 [facility] Comment on above: Performed By: #### H EMDF, PT, BMP3M, PHOS3, MG3, CK3 #### [address] #### VD25H #### [facility] [address] [place] [address] Urea nitrogen mass conc 20 mg/dL Normal 7-20 [facility] Comment on above: Performed By: #### H EMDF, PT, BMP3M, PHOS3, MG3, CK3 #### [address] [place] [address] #### VD25H #### [facility] [address] [place] [address] Chloride molar conc 109 mmol/L High 98-107 [facility] Comment on above: Performed By: #### H EMDF, PT, BMP3M, PHOS3, MG3, CK3 #### [facility] [address] [place] [address] #### VD25H #### [facility] [address] [place] [address] Potassium molar conc 4.0 mmol/L Normal 3.5-5.1 [facility] Comment on above: Performed By: #### H EMDF, PT, BMP3M, PHOS3, MG3, CK3 #### [facility] [address] [place], [place] #### VD25H #### [facility] [address] [place] [address] Sodium molar conc 141 mmol/L Normal 135-145 [facility] Comment on above: Performed By: #### H EMDF, PT, BMP3M, PHOS3, MG3, CK3 #### [facility] [address] [place], [place] #### VD25H #### [facility] [address] [place] [address] CR Chest Portableon 07-26-19 19 CR Chest Portable Patient Name: KATHYA HOOPER Diagnostic Radiology Exam Date/Time 07/25/2018 06:39:42 EDT Exam CR Chest Portable Ordering Physician MARIA EUGENIA PEREZ Accession Number [id number] CPT4 Codes 85938 () Reason For Exam ETT placement Report [...] Time: 07/25/2018 7:46 am Signed by: MD JHONSON RISA Transcribed Date and Time: 07/25/2018 7:45 [facility] CULTURE URINEon 07-25-2018 CULTURE URINE 1 [...] 4 S Trimeth/Sulfa(CHRISTI) <= 20 S Normal [facility] Comment on above: Order Comment: Speci men Source Comment:Urine, clean catch Performed By: #### H EMDF, PT, BMP3M, PHOS3, MG3, CK3 #### [facility] [address] [place], [place] #### VD25H #### [facility] [address] [place] [address] Glucose,Bedsideon 07-25-2018 Glucose mass conc 140 mg/dL High 70-100 [facility] Comment on above: Result Comment: Test performed by glucose meter. Results may be 10%-15% lower than serum/plasma values. (CLIA ID [id number]) Performed By: #### H EMDF, PT, BMP3M, PHOS3, MG3, CK3 #### [facility] [address] [place] [address] #### VD25H #### [facility] [address] [place] [address] Glucose mass conc 158 mg/dL High 70-100 [facility] Comment on above: Result Comment: Test performed by glucose meter. Results may be 10%-15% lower than serum/plasma values. (CLIA ID [id number]) Performed By: #### H EMDF, PT, BMP3M, PHOS3, MG3, CK3 #### [facility] [address] [place], [place] #### VD25H #### [facility] [address] [place] [address] Glucose mass conc 172 mg/dL High 70-100 [facility] Comment on above: Result Comment: Test performed by glucose meter. Results may be 10%-15% lower than serum/plasma values. (CLIA ID [id number]) Performed By: #### H EMDF, PT, BMP3M, PHOS3, MG3, CK3 #### [facility] [address] [place], [place] #### VD25H #### [facility] [address] [place] [address] Glucose mass conc 169 mg/dL High 70-100 [facility] Comment on above: Result Comment: Test performed by glucose meter. Results may be 10%-15% lower than serum/plasma values. (CLIA ID [id number]) Performed By: #### H EMDF, PT, BMP3M, PHOS3, MG3, CK3 #### [address] #### VD25H #### [facility] [address] [place] [address] Glucose mass conc 165 mg/dL High 70-100 [facility] Comment on above: Result Comment: Test performed by glucose meter. Results may be 10%-15% lower than serum/plasma values. (CLIA ID [id number]) Performed By: #### H EMDF, PT, BMP3M, PHOS3, MG3, CK3 #### [address] #### VD25H #### [facility] [address] [place] [address] Hemogram w/ Autodiffon 07-25 Erythrocyte distribution width Ratio (RBC) 13.6 % Normal 11.5-14.5 [facility] Comment on above: Performed By: #### H EMDF, PT, BMP3M, PHOS3, MG3, CK3 #### [address] #### VD25H #### [facility] [address] [place] [address] Hematocrit Volume Fraction (Bld) 31.3 % Low 40.0-52.0 [facility] Comment on above: Performed By: #### H EMDF, PT, BMP3M, PHOS3, MG3, CK3 #### [address] #### VD25H #### [facility] [address] [facility] [place] [address] Hemoglobin mass conc (Bld) 10.6 g/dL Low 13.0-18.0 [facility] Comment on above: Performed By: #### H EMDF, PT, BMP3M, PHOS3, MG3, CK3 #### [address] [place], [place] #### VD25H #### [facility] [address] [place] [address] MCH Entitic mass (RBC) 29.4 pg Normal 26.0-34.0 [facility] Comment on above: Performed By: #### H EMDF, PT, BMP3M, PHOS3, MG3, CK3 #### [address] [place], [place] #### VD25H #### [facility] [address] [place] [address] MCHC mass conc (RBC) 33.8 % Normal 32.0-36.0 [facility] Comment on above: Performed By: #### H EMDF, PT, BMP3M, PHOS3, MG3, CK3 #### [address] #### VD25H #### [facility] [address] [place] [address] MCV Entitic volume (RBC) 86.9 fL Normal 80.0-98.0 [facility] Comment on above: Performed By: #### H EMDF, PT, BMP3M, PHOS3, MG3, CK3 #### [address] #### VD25H #### [facility] [address] [place] [address] Platelet mean volume Entitic volume (Bld) 8.3 fL Normal 7.4-10.4 [facility] Comment on above: Performed By: #### H EMDF, PT, BMP3M, PHOS3, MG3, CK3 #### [address] [place], [place] #### VD25H #### [facility] [address] [place] [address] Platelets #/vol (Bld) 360 10*3/uL Normal 140-440 [facility] Comment on above: Performed By: #### H EMDF, PT, BMP3M, PHOS3, MG3, CK3 #### [place] [address] [place], [place] #### VD25H #### [facility] [address] [place] [address] RBC #/vol (Bld) 3.61 10*6/uL Low 4.40-5.90 [facility] Comment on above: Performed By: #### H EMDF, PT, BMP3M, PHOS3, MG3, CK3 #### [address] #### VD25H #### [facility] [address] [place] [address] WBC #/vol (Bld) 14.7 10*3/uL High 3.6-10.7 [facility] Comment on above: Performed By: #### H EMDF, PT, BMP3M, PHOS3, MG3, CK3 #### [address] #### VD25H #### [place] [address] [place] [address] Magnesiumon 07-25-2018 Magnesium mass conc 2.1 mg/dL Normal 1.6-2.3 [facility] Comment on above: Performed By: #### H EMDF, PT, BMP3M, PHOS3, MG3, CK3 #### [address] #### VD25H #### [place] [address] [place] [address] Manual Diffon 07-25-2018 Abs Baso Cnt 0.1 10*3/uL Normal 0.0-0.2 [facility] Comment on above: Performed By: #### H EMDF, PT, BMP3M, PHOS3, MG3, CK3 #### [address] #### VD25H #### [place] [address] [place] [address] Abs Neutrophile Cnt 12.9 10*3/uL High 2.2-8.2 [facility] Comment on above: Performed By: #### H EMDF, PT, BMP3M, PHOS3, MG3, CK3 #### [facility] [address] [place], [place] #### VD25H #### [facility] [address] [place] [address] Anisocytosis Ql (Bld) Slight Normal [facility] Comment on above: Performed By: #### H EMDF, PT, BMP3M, PHOS3, MG3, CK3 #### [facility] [address] [place], [place] #### VD25H #### [facility] [address] [place] [address] Bands 4 % High 0-3 [facility] Comment on above: Performed By: #### H EMDF, PT, BMP3M, PHOS3, MG3, CK3 #### [facility] [address] [place], [place] #### VD25H #### [facility] [address] [place] [address] Basophils/100 WBC (Bld) 1 % Normal 0-2 [facility] Comment on above: Performed By: #### H EMDF, PT, BMP3M, PHOS3, MG3, CK3 #### [address] [place], [place] #### VD25H #### [facility] [address] [place] [address] Eosinophils #/vol (Bld) 0.6 10*3/uL High 0.0-0.5 [facility] Comment on above: Performed By: #### H EMDF, PT, BMP3M, PHOS3, MG3, CK3 #### [address] [place], [place] #### VD25H #### [facility] [address] [place] [address] Eosinophils/100 WBC (Bld) 4 % Normal 1-6 [facility] Comment on above: Performed By: #### H EMDF, PT, BMP3M, PHOS3, MG3, CK3 #### [facility] [address] [place], [place] #### VD25H #### [facility] [address] [place] [address] Lymphocytes #/vol (Bld) 0.1 10*3/uL Low 1.1-4.5 [facility] Comment on above: Performed By: #### H EMDF, PT, BMP3M, PHOS3, MG3, CK3 #### [address] [place], [place] #### VD25H #### [facility] [address] [place] [address] Lymphocytes/100 WBC (Bld) 1 % Low 20-40 [facility] Comment on above: Performed By: #### H EMDF, PT, BMP3M, PHOS3, MG3, CK3 #### [place] [address] [place], [place] #### VD25H #### [facility] [address] [place] [address] Macrocytosis Slight Normal [facility] Comment on above: Performed By: #### H EMDF, PT, BMP3M, PHOS3, MG3, CK3 #### [address] #### VD25H #### [facility] [address] [facility] [place] [address] Metamyelocytes 2 % Abnormal <1 [facility] Comment on above: Performed By: #### H EMDF, PT, BMP3M, PHOS3, MG3, CK3 #### [address] [place], [place] #### VD25H #### [facility] [address] [facility] [place] [address] Microcytosis Slight Normal [facility] Comment on above: Performed By: #### H EMDF, PT, BMP3M, PHOS3, MG3, CK3 #### [place] [address] [place], [place] #### VD25H #### [facility] [address] [place] [address] Monocytes #/vol (Bld) 0.6 10*3/uL Normal 0.2-1.1 [facility] Comment on above: Performed By: #### H EMDF, PT, BMP3M, PHOS3, MG3, CK3 #### [facility] [address] [place] #### VD25H #### [facility] [address] [place] [address] Monocytes/100 WBC (Bld) 4 % Normal 2-10 [facility] Comment on above: Performed By: #### H EMDF, PT, BMP3M, PHOS3, MG3, CK3 #### [address] #### VD25H #### [facility] [address] [place] [address] RBC morphology finding Nom (Bld) ABNORMAL Normal [facility] Comment on above: Performed By: #### H EMDF, PT, BMP3M, PHOS3, MG3, CK3 #### [address] [place], [place] #### VD25H #### [facility] [address] [place] [address] Seg Neutrophils 84 % High 40-80 [facility] Comment on above: Performed By: #### H EMDF, PT, BMP3M, PHOS3, MG3, CK3 #### [address] [place], [place] #### VD25H #### [facility] [address] [place] [address] Cells counted 100 Normal [facility] Comment on above: Performed By: #### H EMDF, PT, BMP3M, PHOS3, MG3, CK3 #### [address] [place] #### VD25H #### [facility] [address] [place] [address] Phosphoruson 07-25-2018 Phosphate mass conc 2.7 mg/dL Normal 2.5-4.5 [facility] Comment on above: Performed By: #### H EMDF, PT, BMP3M, PHOS3, MG3, CK3 #### [place] [place], [place] #### VD25H #### [facility] [address] [place] [address] Triglycerideon 07-25-2018 Triglyceride mass conc 82 mg/dL Normal <150 [facility] Comment on above: Performed By: #### H EMDF, PT, BMP3M, PHOS3, MG3, CK3 #### [address] #### VD25H #### [place] [address] [place] [address] Basic Metabolic Panelon 06-30 Calcium mass conc 8.0 mg/dL Low 8.4-10.4 [facility] Comment on above: Performed By: #### H EMDF, PT, BMP3M, PHOS3, MG3, CK3 #### [address] #### VD25H #### [place] [address] [place] [address] Anion gap molar conc 9 Normal [facility] Comment on above: Performed By: #### H EMDF, PT, BMP3M, PHOS3, MG3, CK3 #### [address] #### VD25H #### [facility] [address] [place] [address] CO2 molar conc 23 mmol/L Normal 22-30 [facility] Comment on above: Performed By: #### H EMDF, PT, BMP3M, PHOS3, MG3, CK3 #### [place] [address] [place], [place] #### VD25H #### [facility] [address] [place] [address] Creatinine mass conc 0.71 mg/dL Normal 0.52-1.25 [facility] Comment on above: Performed By: #### H EMDF, PT, BMP3M, PHOS3, MG3, CK3 #### [facility] [address] [place], [place] #### VD25H #### [facility] [address] [place] [address] GFR/1.73 sq M predicted among blacks MDRD vol rate/area (S/P/Bld) mL/min/{1.73_m2} Normal >60 [facility] Comment on above: Performed By: #### H EMDF, PT, BMP3M, PHOS3, MG3, CK3 #### [address] #### VD25H #### [facility] [address] [place] [address] GFR/1.73 sq M predicted among non-blacks MDRD vol rate/area (S/P/Bld) mL/min/{1.73_m2} Normal >60 [facility] Comment on above: Result Comment: Sour ce- MDRD equation with creatinine calibration to IDMS(NKDEP) eGFR not recommended for drug dose adjustment Performed By: #### H EMDF, PT, BMP3M, PHOS3, MG3, CK3 #### [address] #### VD25H #### [facility] [address] [place] [address] Glucose mass conc 160 mg/dL High 70-100 [facility] Comment on above: Performed By: #### H EMDF, PT, BMP3M, PHOS3, MG3, CK3 #### [address] #### VD25H #### [facility] [address] [place] [address] Urea nitrogen mass conc 28 mg/dL High 7-20 [facility] Comment on above: Performed By: #### H EMDF, PT, BMP3M, PHOS3, MG3, CK3 #### [facility] [address] [place] [address] #### VD25H #### [facility] [address] [place] [address] Chloride molar conc 109 mmol/L High 98-107 [facility] Comment on above: Performed By: #### H EMDF, PT, BMP3M, PHOS3, MG3, CK3 #### [facility] [address] [facility] #### VD25H #### [facility] [address] [place] [address] Potassium molar conc 3.7 mmol/L Normal 3.5-5.1 [facility] Comment on above: Performed By: #### H EMDF, PT, BMP3M, PHOS3, MG3, CK3 #### [facility] [address] [facility] #### VD25H #### [facility] [address] [place] [address] Sodium molar conc 141 mmol/L Normal 135-145 [facility] Comment on above: Performed By: #### H EMDF, PT, BMP3M, PHOS3, MG3, CK3 #### [facility] [address] [facility], [place] #### VD25H #### [facility] [address] [place] [address] CR Chest Portableon 07-25-19 19 CR Chest Portable Patient Name: KATHYA HOOPER Diagnostic Radiology Exam Date/Time 07/24/2018 13:12:47 EDT Exam CR Chest Portable Ordering Physician DO WOLFF KATHRYN C Accession Number [id number] CPT4 Codes 01457 () Reason For Exam line placement Report [...] ALFRED Transcribed Date and Time: 07/24/2018 3:10 [facility] CR Chest Portable Patient Name: KATHYA HOOPER Diagnostic Radiology Exam Date/Time 07/24/2018 07:11:26 EDT Exam CR Chest Portable Ordering Physician MARIA EUGENIA PEREZ Accession Number [id number] CPT4 Codes 02174 () Reason For Exam ETT placement Report [...] Transcribed Date and Time: 07/24/2018 7:31 Normal [facility] CULT./ST. RESPIRATORYon - CULT./ST. RESPIRATORY CULT./ST. [...] 1 S Trimeth/Sulfa(CHRISTI) <= 20 S Normal [facility] Comment on above: Order Comment: Speci men Source Comment:Endotracheal Performed By: #### H EMDF, PT, BMP3M, PHOS3, MG3, CK3 #### [facility] [address] [place] [address] #### VD25H #### [facility] [address] [facility] [place] [address] CULTURE URINEon 07-24-2018 CULTURE URINE 1 Organism [...] 4 S Trimeth/Sulfa(CHRISTI) <= 20 S Normal [facility] Comment on above: Order Comment: Speci men Source Comment:Urine, clean catch Performed By: #### H EMDF, PT, BMP3M, PHOS3, MG3, CK3 #### [facility] [address] [place] [id number] #### VD25H #### [facility] [address] [place] [address] Creatinine, Ur Randomon 06-30 Creatinine, Ur Random 49.5 mg/dL Normal No Range [facility] Comment on above: Performed By: #### H EMDF, PT, BMP3M, PHOS3, MG3, CK3 #### [address] #### VD25H #### [facility] [address] [place] [address] Glucose,Bedsideon 07-24-2018 Glucose mass conc 124 mg/dL High 70-[address] [facility] Comment on above: Result Comment: Test performed by glucose meter. Results may be 10%-15% lower than serum/plasma values. (CLIA ID [id number]) Performed By: #### H EMDF, PT, BMP3M, PHOS3, MG3, CK3 #### [address] #### VD25H #### [facility] [address] [place] [address] Glucose mass conc 152 mg/dL High 70-[address] [facility] Comment on above: Result Comment: Test performed by glucose meter. Results may be 10%-15% lower than serum/plasma values. (CLIA ID [id number]) Performed By: #### H EMDF, PT, BMP3M, PHOS3, MG3, CK3 #### [address] #### VD25H #### [facility] [address] [place] [address] Glucose mass conc 149 mg/dL High 70-[address] [facility] Comment on above: Result Comment: Test performed by glucose meter. Results may be 10%-15% lower than serum/plasma values. (CLIA ID [id number]) Performed By: #### H EMDF, PT, BMP3M, PHOS3, MG3, CK3 #### [facility] [address] #### VD25H #### [place] [address] [place] [address] Hemogram w/ Autodiffon 07-24 Erythrocyte distribution width Ratio (RBC) 13.7 % Normal 11.5-14.5 [facility] Comment on above: Performed By: #### H EMDF, PT, BMP3M, PHOS3, MG3, CK3 #### [place] [place], [place] #### VD25H #### [facility] [address] [place] [address] Hematocrit Volume Fraction (Bld) 31.4 % Low 40.0-52.0 [facility] Comment on above: Performed By: #### H EMDF, PT, BMP3M, PHOS3, MG3, CK3 #### [address] #### VD25H #### [place] [address] [place] [address] Hemoglobin mass conc (Bld) 10.7 g/dL Low 13.0-18.0 [facility] Comment on above: Performed By: #### H EMDF, PT, BMP3M, PHOS3, MG3, CK3 #### [address] [place], [place] #### VD25H #### [place] [address] [place] [address] MCH Entitic mass (RBC) 29.4 pg Normal 26.0-34.0 [facility] Comment on above: Performed By: #### H EMDF, PT, BMP3M, PHOS3, MG3, CK3 #### [address] #### VD25H #### [place] [address] [place] [address] MCHC mass conc (RBC) 33.9 % Normal 32.0-36.0 [facility] Comment on above: Performed By: #### H EMDF, PT, BMP3M, PHOS3, MG3, CK3 #### [address] [place], [place] #### VD25H #### [facility] [address] [place] [address] MCV Entitic volume (RBC) 86.8 fL Normal 80.0-98.0 [facility] Comment on above: Performed By: #### H EMDF, PT, BMP3M, PHOS3, MG3, CK3 #### [address] [place], [place] #### VD25H #### [facility] [address] [place] [address] Platelet mean volume Entitic volume (Bld) 8.6 fL Normal 7.4-10.4 [facility] Comment on above: Performed By: #### H EMDF, PT, BMP3M, PHOS3, MG3, CK3 #### [address] #### VD25H #### [facility] [address] [place] [address] Platelets #/vol (Bld) 304 10*3/uL Normal 140-440 [facility] Comment on above: Performed By: #### H EMDF, PT, BMP3M, PHOS3, MG3, CK3 #### [address] #### VD25H #### [facility] [address] [place] [address] RBC #/vol (Bld) 3.62 10*6/uL Low 4.40-5.90 [facility] Comment on above: Performed By: #### H EMDF, PT, BMP3M, PHOS3, MG3, CK3 #### [address] #### VD25H #### [facility] [address] [place] [address] WBC #/vol (Bld) 14.0 10*3/uL High 3.6-10.7 [facility] Comment on above: Performed By: #### H EMDF, PT, BMP3M, PHOS3, MG3, CK3 #### [address] [place], [place] #### VD25H #### [facility] [address] [place] [address] Magnesiumon 07-24-2018 Magnesium mass conc 2.2 mg/dL Normal 1.6-2.3 [facility] Comment on above: Performed By: #### H EMDF, PT, BMP3M, PHOS3, MG3, CK3 #### [address] #### VD25H #### [facility] [address] [place] [address] Manual Diffon 07-24-2018 Abs Baso Cnt 0.0 10*3/uL Normal 0.0-0.2 [facility] Comment on above: Performed By: #### H EMDF, PT, BMP3M, PHOS3, MG3, CK3 #### [address] #### VD25H #### [facility] [address] [place] [address] Abs Neutrophile Cnt 12.2 10*3/uL High 2.2-8.2 [facility] Comment on above: Performed By: #### H EMDF, PT, BMP3M, PHOS3, MG3, CK3 #### [address] [place], [place] #### VD25H #### [facility] [address] [place] [address] Eosinophils #/vol (Bld) 0.4 10*3/uL Normal 0.0-0.5 [facility] Comment on above: Performed By: #### H EMDF, PT, BMP3M, PHOS3, MG3, CK3 #### [address] #### VD25H #### [facility] [address] [place] [place] [address] Eosinophils/100 WBC (Bld) 3 % Normal 1-6 [facility] Comment on above: Performed By: #### H EMDF, PT, BMP3M, PHOS3, MG3, CK3 #### [facility] [address] [place], [place] #### VD25H #### [facility] [address] [place] [address] Lymphocytes #/vol (Bld) 1.0 10*3/uL Low 1.1-4.5 [facility] Comment on above: Performed By: #### H EMDF, PT, BMP3M, PHOS3, MG3, CK3 #### [address] [place], [place] #### VD25H #### [facility] [address] [place] [address] Lymphocytes/100 WBC (Bld) 7 % Low 20-40 [facility] Comment on above: Performed By: #### H EMDF, PT, BMP3M, PHOS3, MG3, CK3 #### [address] [place], [place] #### VD25H #### [facility] [address] [place] [address] Monocytes #/vol (Bld) 0.4 10*3/uL Normal 0.2-1.1 [facility] Comment on above: Performed By: #### H EMDF, PT, BMP3M, PHOS3, MG3, CK3 #### [address] [place], [place] #### VD25H #### [facility] [address] [place] [address] Monocytes/100 WBC (Bld) 3 % Normal 2-10 [facility] Comment on above: Performed By: #### H EMDF, PT, BMP3M, PHOS3, MG3, CK3 #### [address] [place], [place] #### VD25H #### [facility] [address] [place] [address] RBC morphology finding Nom (Bld) Normal Normal [facility] Comment on above: Performed By: #### H EMDF, PT, BMP3M, PHOS3, MG3, CK3 #### [facility] [address] [place] #### VD25H #### [facility] [address] [place] [address] Seg Neutrophils 87 % High 40-80 [facility] Comment on above: Performed By: #### H EMDF, PT, BMP3M, PHOS3, MG3, CK3 #### [address] [place] #### VD25H #### [facility] [address] [place] [address] Bands 0 % Normal 0-3 [facility] Comment on above: Performed By: #### H EMDF, PT, BMP3M, PHOS3, MG3, CK3 #### [address] [place] #### VD25H #### [facility] [address] [place] [address] Basophils/100 WBC (Bld) 0 % Normal 0-2 [facility] Comment on above: Performed By: #### H EMDF, PT, BMP3M, PHOS3, MG3, CK3 #### [address] [address] [place] #### VD25H #### [facility] [address] [place] [address] Cells counted 100 Normal [facility] Comment on above: Performed By: #### H EMDF, PT, BMP3M, PHOS3, MG3, CK3 #### [address] [place], [place] #### VD25H #### [facility] [address] [place] [address] Phosphoruson 07-24-2018 Phosphate mass conc 2.7 mg/dL Normal 2.5-4.5 [facility] Comment on above: Performed By: #### H EMDF, PT, BMP3M, PHOS3, MG3, CK3 #### [address] [place] #### VD25H #### [facility] [address] [place] [address] Triglycerideon 07-24-2018 Triglyceride mass conc 78 mg/dL Normal <150 [facility] Comment on above: Performed By: #### H EMDF, PT, BMP3M, PHOS3, MG3, CK3 #### [address] [place] #### VD25H #### [place] [address] [place] [address] Urea Nitrogen,Ur Randomon Urea nitrogen mass conc 1199 mg/dL Normal No Range [facility] Comment on above: Performed By: #### H EMDF, PT, BMP3M, PHOS3, MG3, CK3 #### [address] [address] [place] #### VD25H #### [facility] [address] [place] [address] Add on test from HISon 07-23 Add on test from HIS Accepted Normal [facility] Comment on above: Result Comment: Spec imen available & acceptable for analysis. Performed By: #### H EMDF, PT, BMP3M, PHOS3, MG3, CK3 #### [address] [place] #### VD25H #### [place] [address] [place] [address] Arterial Blood Gaseson 07-23 CO2 molar conc 23.0 mmol/L Normal 23.0-27.0 [facility] Comment on above: Performed By: #### H EMDF, PT, BMP3M, PHOS3, MG3, CK3 #### [address] #### VD25H #### [place] [address] [place] [address] HCO3 molar conc (Bld) 22.0 mmol/L Normal 21.0-25.0 [facility] Comment on above: Performed By: #### H EMDF, PT, BMP3M, PHOS3, MG3, CK3 #### [facility] [address] [place], [place] #### VD25H #### [facility] [address] [place] [address] Hemoglobin mass conc (Bld) 10.9 g/dL Normal ScreenOnly [facility] Comment on above: Performed By: #### H EMDF, PT, BMP3M, PHOS3, MG3, CK3 #### [address] [address] [place] #### VD25H #### [facility] [address] [place] [address] Oxygen ppres (Bld) 102.4 mm[Hg] High 80.0-100.0 [facility] Comment on above: Performed By: #### H EMDF, PT, BMP3M, PHOS3, MG3, CK3 #### [address] [place] #### VD25H #### [facility] [address] [place] [address] Oxygen saturation in Blood 97.7 % Normal 95.0-100.0 [facility] Comment on above: Performed By: #### H EMDF, PT, BMP3M, PHOS3, MG3, CK3 #### [address] [place] #### VD25H #### [facility] [address] [place] [address] pCO2 34.4 mm[Hg] Low 35.0-45.0 [facility] Comment on above: Performed By: #### H EMDF, PT, BMP3M, PHOS3, MG3, CK3 #### [address] [place] #### VD25H #### [facility] [address] [place] [address] pH (Bld) 7.423 Normal 7.350-7.450 [facility] Comment on above: Performed By: #### H EMDF, PT, BMP3M, PHOS3, MG3, CK3 #### [facility] [address] [place] #### VD25H #### [facility] [address] [place] [address] Std Base Excess -1.9 mmol/L Normal -3.0-3.0 [facility] Comment on above: Performed By: #### H EMDF, PT, BMP3M, PHOS3, MG3, CK3 #### [address] [place] #### VD25H #### [facility] [address] [place] [address] FIO2 .30 Normal [facility] Comment on above: Performed By: #### H EMDF, PT, BMP3M, PHOS3, MG3, CK3 #### [facility] [address] [place] #### VD25H #### [facility] [address] [place] [address] Basic Metabolic Panelon 06-30 Anion gap molar conc 12 Normal [facility] Comment on above: Performed By: #### H EMDF, PT, BMP3M, PHOS3, MG3, CK3 #### [address] [place] #### VD25H #### [facility] [address] [place] [address] Calcium mass conc 7.5 mg/dL Low 8.4-10.4 [facility] Comment on above: Performed By: #### H EMDF, PT, BMP3M, PHOS3, MG3, CK3 #### [facility] [address] [facility], [place] #### VD25H #### [facility] [address] [place] [address] CO2 molar conc 23 mmol/L Normal 22-30 [facility] Comment on above: Performed By: #### H EMDF, PT, BMP3M, PHOS3, MG3, CK3 #### [facility] [address] [place] #### VD25H #### [facility] [address] [place] [address] Glucose mass conc 148 mg/dL High 70-100 [facility] Comment on above: Performed By: #### H EMDF, PT, BMP3M, PHOS3, MG3, CK3 #### [address] [place] #### VD25H #### [facility] [address] [place] [address] Urea nitrogen mass conc 82 mg/dL High 7-20 [facility] Comment on above: Performed By: #### H EMDF, PT, BMP3M, PHOS3, MG3, CK3 #### [address] #### VD25H #### [facility] [address] [place] [address] Creatinine mass conc 3.01 mg/dL High 0.52-1.25 [facility] Comment on above: Performed By: #### H EMDF, PT, BMP3M, PHOS3, MG3, CK3 #### [address] [place] #### VD25H #### [facility] [address] [place] [address] GFR/1.73 sq M predicted among blacks MDRD vol rate/area (S/P/Bld) 25.8 mL/min/{1.73_m2} Normal >60 [facility] Comment on above: Performed By: #### H EMDF, PT, BMP3M, PHOS3, MG3, CK3 #### [address] #### VD25H #### [facility] [address] [place] [address] GFR/1.73 sq M predicted among non-blacks MDRD vol rate/area (S/P/Bld) 21.3 mL/min/{1.73_m2} Normal >60 [facility] Comment on above: Result Comment: Sour ce- MDRD equation with creatinine calibration to IDMS(NKDEP) eGFR not recommended for drug dose adjustment Performed By: #### H EMDF, PT, BMP3M, PHOS3, MG3, CK3 #### [facility] [address] [place] #### VD25H #### [facility] [address] [place] [address] Chloride molar conc 106 mmol/L Normal 98-107 [facility] Comment on above: Performed By: #### H EMDF, PT, BMP3M, PHOS3, MG3, CK3 #### [address] #### VD25H #### [facility] [address] [place] [address] Potassium molar conc 4.2 mmol/L Normal 3.5-5.1 [facility] Comment on above: Performed By: #### H EMDF, PT, BMP3M, PHOS3, MG3, CK3 #### [facility] [address] [place] #### VD25H #### [facility] [address] [place] [address] Sodium molar conc 141 mmol/L Normal 135-145 [facility] Comment on above: Performed By: #### H EMDF, PT, BMP3M, PHOS3, MG3, CK3 #### [address] #### VD25H #### [facility] [address] [place] [address] CR Chest Portableon 07-24-19 19 CR Chest Portable Patient Name: KATHYA HOOPER Diagnostic Radiology Exam Date/Time 07/23/2018 07:06:03 EDT Exam CR Chest Portable Ordering Physician MARIA EUGENIA PEREZ Accession Number [id number] CPT4 Codes 94991 () Reason For Exam ETT placement Report [...] Transcribed Date and Time: 07/23/2018 7:58 Normal [facility] Creatinine, Ur Randomon 06-30 Creatinine, Ur Random 56.8 mg/dL Normal No Range [facility] Comment on above: Performed By: #### H EMDF, PT, BMP3M, PHOS3, MG3, CK3 #### [facility] [address] [place], [place] #### VD25H #### [facility] [address] [place] [address] Glucose,Bedsideon 07-23-2018 Glucose mass conc 116 mg/dL High 70-100 [facility] [employer] [facility] Comment on above: Result Comment: Test performed by glucose meter. Results may be 10%-15% lower than serum/plasma values. (CLIA ID [id number]) Performed By: #### H EMDF, PT, BMP3M, PHOS3, MG3, CK3 #### [facility] [address] [place] [address] #### VD25H #### [facility] [address] [place] [address] Glucose mass conc 139 mg/dL High 70-[address] [facility] Comment on above: Result Comment: Test performed by glucose meter. Results may be 10%-15% lower than serum/plasma values. (CLIA ID [id number]) Performed By: #### H EMDF, PT, BMP3M, PHOS3, MG3, CK3 #### [address] #### VD25H #### [facility] [address] [place], [place] Glucose mass conc 140 mg/dL High 70-100 [facility] Comment on above: Result Comment: Test performed by glucose meter. Results may be 10%-15% lower than serum/plasma values. (CLIA ID [id number]) Performed By: #### H EMDF, PT, BMP3M, PHOS3, MG3, CK3 #### [address] #### VD25H #### [place] [address] [place] [address] Glucose mass conc 140 mg/dL High 70-100 [facility] Comment on above: Result Comment: Test performed by glucose meter. Results may be 10%-15% lower than serum/plasma values. (CLIA ID [id number]) Performed By: #### H EMDF, PT, BMP3M, PHOS3, MG3, CK3 #### [address] #### VD25H #### [facility] [address] [place] [address] Hemogram w/ Autodiffon 07-23 Abs Baso Cnt 0.0 10*3/uL Normal 0.0-0.2 [facility] Comment on above: Performed By: #### H EMDF, PT, BMP3M, PHOS3, MG3, CK3 #### [address] #### VD25H #### [facility] [address] [place], [place] Abs Neutrophile Cnt 16.2 10*3/uL High 1.8-7.0 [facility] Comment on above: Performed By: #### H EMDF, PT, BMP3M, PHOS3, MG3, CK3 #### [facility] [address] [place] #### VD25H #### [facility] [address] [place] [address] Basophils/100 WBC (Bld) 0.3 % Normal 0.0-2.0 [facility] Comment on above: Performed By: #### H EMDF, PT, BMP3M, PHOS3, MG3, CK3 #### [address] [place] #### VD25H #### [facility] [address] [place] [address] Eosinophils #/vol (Bld) 0.2 10*3/uL Normal 0.0-0.5 [facility] Comment on above: Performed By: #### H EMDF, PT, BMP3M, PHOS3, MG3, CK3 #### [address] #### VD25H #### [facility] [address] [place] [address] Eosinophils/100 WBC (Bld) 1.2 % Normal 1.0-6.0 [facility] Comment on above: Performed By: #### H EMDF, PT, BMP3M, PHOS3, MG3, CK3 #### [address] [place], [place] #### VD25H #### [facility] [address] [place] [address] Erythrocyte distribution width Ratio (RBC) 13.9 % Normal 11.5-14.5 [facility] Comment on above: Performed By: #### H EMDF, PT, BMP3M, PHOS3, MG3, CK3 #### [address] #### VD25H #### [facility] [address] [place] [address] Granulocytes/100 WBC (Bld) 86.8 % High 40.0-80.0 [facility] Comment on above: Performed By: #### H EMDF, PT, BMP3M, PHOS3, MG3, CK3 #### [facility] [address] [place] #### VD25H #### [facility] [address] [place] [address] Hematocrit Volume Fraction (Bld) 26.7 % Low 40.0-52.0 [facility] Comment on above: Performed By: #### H EMDF, PT, BMP3M, PHOS3, MG3, CK3 #### [address] [place] #### VD25H #### [facility] [address] [place] [address] Hemoglobin mass conc (Bld) 8.9 g/dL Low 13.0-18.0 [facility] Comment on above: Performed By: #### H EMDF, PT, BMP3M, PHOS3, MG3, CK3 #### [address] [place] #### VD25H #### [facility] [address] [place] [address] Lymphocytes #/vol (Bld) 1.2 10*3/uL Normal 1.0-4.3 [facility] Comment on above: Performed By: #### H EMDF, PT, BMP3M, PHOS3, MG3, CK3 #### [address] [place] #### VD25H #### [facility] [address] [place] [address] Lymphocytes/100 WBC (Bld) 6.6 % Low 20.0-40.0 [facility] Comment on above: Performed By: #### H EMDF, PT, BMP3M, PHOS3, MG3, CK3 #### [address] [address] [place] #### VD25H #### [facility] [address] [place] [address] MCH Entitic mass (RBC) 29.5 pg Normal 26.0-34.0 [facility] Comment on above: Performed By: #### H EMDF, PT, BMP3M, PHOS3, MG3, CK3 #### [address] #### VD25H #### [facility] [address] [place] [address] MCHC mass conc (RBC) 33.5 % Normal 32.0-36.0 [facility] Comment on above: Performed By: #### H EMDF, PT, BMP3M, PHOS3, MG3, CK3 #### [address] #### VD25H #### [place] [address] [place] [address] MCV Entitic volume (RBC) 87.9 fL Normal 80.0-98.0 [facility] Comment on above: Performed By: #### H EMDF, PT, BMP3M, PHOS3, MG3, CK3 #### [address] #### VD25H #### [place] [address] [place] [address] Monocytes #/vol (Bld) 1.0 10*3/uL High 0.0-0.8 [facility] Comment on above: Performed By: #### H EMDF, PT, BMP3M, PHOS3, MG3, CK3 #### [address] #### VD25H #### [place] [address] [place] [address] Monocytes/100 WBC (Bld) 5.1 % Normal 2.0-10.0 [facility] Comment on above: Performed By: #### H EMDF, PT, BMP3M, PHOS3, MG3, CK3 #### [address] #### VD25H #### [place] [address] [place] [address] Platelet mean volume Entitic volume (Bld) 8.2 fL Normal 7.4-10.4 [facility] Comment on above: Performed By: #### H EMDF, PT, BMP3M, PHOS3, MG3, CK3 #### [address] #### VD25H #### [facility] [address] [place] [address] Platelets #/vol (Bld) 294 10*3/uL Normal 140-440 [facility] Comment on above: Performed By: #### H EMDF, PT, BMP3M, PHOS3, MG3, CK3 #### [address] #### VD25H #### [place] [address] [place] [address] RBC #/vol (Bld) 3.03 10*6/uL Low 4.40-5.90 [facility] Comment on above: Performed By: #### H EMDF, PT, BMP3M, PHOS3, MG3, CK3 #### [address] #### VD25H #### [place] [address] [place] [address] WBC #/vol (Bld) 18.7 10*3/uL High 3.6-10.7 [facility] Comment on above: Performed By: #### H EMDF, PT, BMP3M, PHOS3, MG3, CK3 #### [address] #### VD25H #### [place] [address] [place] [address] LDHon 07-23-2018 LDH 342 U/L High 65-175 [facility] Comment on above: Performed By: #### H EMDF, PT, BMP3M, PHOS3, MG3, CK3 #### [address] [place], [place] #### VD25H #### [facility] [address] [place] [address] Magnesiumon 07-23-2018 Magnesium mass conc 2.5 mg/dL High 1.6-2.3 [facility] Comment on above: Performed By: #### H EMDF, PT, BMP3M, PHOS3, MG3, CK3 #### [facility] [address] [place], [place] #### VD25H #### [facility] [address] [place] [address] Phosphoruson 07-23-2018 Phosphate mass conc 4.5 mg/dL Normal 2.5-4.5 [facility] Comment on above: Performed By: #### H EMDF, PT, BMP3M, PHOS3, MG3, CK3 #### [address] [place] [address] [place], [place] #### VD25H #### [facility] [address] [place] [address] Protein, Total Body Fluidon 07-23-2018 Protein,Total-Body Fld 2.7 g/dL Normal No Range [facility] Comment on above: Performed By: #### H EMDF, PT, BMP3M, PHOS3, MG3, CK3 #### [address] [place] #### VD25H #### [facility] [address] [place] [address] Triglycerideon 07-23-2018 Triglyceride mass conc 63 mg/dL Normal <150 [facility] Comment on above: Performed By: #### H EMDF, PT, BMP3M, PHOS3, MG3, CK3 #### [address] [place] #### VD25H #### [facility] [address] [place] [address] Urea Nitrogen,Ur Randomon Urea nitrogen mass conc 677 mg/dL Normal No Range [facility] Comment on above: Performed By: #### H EMDF, PT, BMP3M, PHOS3, MG3, CK3 #### [facility] [address] [place] #### VD25H #### [facility] [address] [place] [address] Urinalysis,Macroon 9 Appearance Nom (U) cloudy Normal Clear [facility] Comment on above: Performed By: #### H EMDF, PT, BMP3M, PHOS3, MG3, CK3 #### [address] [place] #### VD25H #### [facility] [address] [place] [address] Bilirubin,Ur Negative Normal Negative [facility] Comment on above: Performed By: #### H EMDF, PT, BMP3M, PHOS3, MG3, CK3 #### [address] [place] #### VD25H #### [facility] [address] [place] [address] Color Nom (U) dk.yel Normal Lt. Yellow [facility] Comment on above: Performed By: #### H EMDF, PT, BMP3M, PHOS3, MG3, CK3 #### [address] #### VD25H #### [facility] [address] [place] [address] Glucose Ql (U) NORM Normal Negative [facility] Comment on above: Performed By: #### H EMDF, PT, BMP3M, PHOS3, MG3, CK3 #### [address] #### VD25H #### [facility] [address] [place] [address] Ketone,Urine Negative Normal Negative [facility] Comment on above: Performed By: #### H EMDF, PT, BMP3M, PHOS3, MG3, CK3 #### [address] #### VD25H #### [facility] [address] [place] [address] Nitrite Ql (U) Negative Normal Negative [facility] Comment on above: Performed By: #### H EMDF, PT, BMP3M, PHOS3, MG3, CK3 #### [address] [place] [place] #### VD25H #### [facility] [address] [place] [address] Occult Blood,Ur 250 {RBC}/uL Normal Negative [facility] Comment on above: Performed By: #### H EMDF, PT, BMP3M, PHOS3, MG3, CK3 #### [address] [place], [place] #### VD25H #### [facility] [address] [place] [address] pH (U) 5.0 Normal 5.0-8.0 [facility] Comment on above: Performed By: #### H EMDF, PT, BMP3M, PHOS3, MG3, CK3 #### [address] [place] #### VD25H #### [facility] [address] [place] [address] Protein mass conc (U) 75 mg/dL Normal Negative [facility] Comment on above: Performed By: #### H EMDF, PT, BMP3M, PHOS3, MG3, CK3 #### [place] [place] #### VD25H #### [facility] [address] [place] [address] Specific [place],Urine 1.015 Normal 1.005-1.030 [facility] Comment on above: Performed By: #### H EMDF, PT, BMP3M, PHOS3, MG3, CK3 #### [place] [place] #### VD25H #### [facility] [address] [place] [address] Urobilinogen Qn (U) NORM Normal 0-1 [facility] Comment on above: Performed By: #### H EMDF, PT, BMP3M, PHOS3, MG3, CK3 #### [address] #### VD25H #### [facility] [address] [place] [address] WBC #/vol (Bld) 2 + Normal Negative [facility] Comment on above: Performed By: #### H EMDF, PT, BMP3M, PHOS3, MG3, CK3 #### [address] #### VD25H #### [place] [address] [place] [address] Urinalysis,Microscopicon Bacteria LM.HPF #/area (Urine sed) Moderate (6-50) Normal Negative [facility] Comment on above: Performed By: #### H EMDF, PT, BMP3M, PHOS3, MG3, CK3 #### [address] #### VD25H #### [facility] [address] [place] [address] Epithelial cells LM.HPF #/area (Urine sed) 0 - 2 Normal 3-5 [facility] Comment on above: Performed By: #### H EMDF, PT, BMP3M, PHOS3, MG3, CK3 #### [address] #### VD25H #### [facility] [address] [facility] [place] [address] RBC LM.HPF #/area (Urine sed) /[HPF] Normal 0-2 [facility] Comment on above: Performed By: #### H EMDF, PT, BMP3M, PHOS3, MG3, CK3 #### [address] #### VD25H #### [facility] [address] [place] [address] Volume,Urine 8-12 ml Normal [facility] Comment on above: Performed By: #### H EMDF, PT, BMP3M, PHOS3, MG3, CK3 #### [facility] [address] [place] [address] #### VD25H #### [facility] [address] [place] [address] WBC LM.HPF #/area (Urine sed) 26 - 50 Normal 0-5 [facility] Comment on above: Performed By: #### H EMDF, PT, BMP3M, PHOS3, MG3, CK3 #### [facility] [address] [place] [address] #### VD25H #### [facility] [address] [place] [address] VL Venous Duplex US Lower Ex t Bilateralon 07-23-2018 VL Venous Duplex US Lower Ext Bilateral Patient Name: KATHYA HOOPER Ultrasound Exam Date/Time 07/23/2018 11:16:11 EDT Exam VL Venous Duplex US Lower Ext Bilateral Ordering Physician ETIENNE MARTÍNEZ JULIE Accession Number [id number] CPT4 Codes 21154 () Reason For Exam edema Report [facility] --- Lower Extremity Venous Duplex Report Patient Name: Kathya Hooper : 1955 Study Date: 07/23/2018 W (63yrs) Age: 63 Account: [id number] Gender: M Loc: T209 BP: Ordering: Yesenia Martínez Technologist: Ordering Physician: Yesenia Martínez Hammersmith Helper: León Chaidez RVT, [facility] Interpreting Physician: Vamsi York MD --- Location: [facility] --- INDICATIONS: Edema. bilateral calf edema. --- [...] performed. The images were obtained using a Unblab E9 vascular ultrasound machine. --- VENOUS FLOW [...] --+ Electronically signed by: Vamsi York MD [id number] Final Dictated: 07/23/2018 3:00 pm Dictating Physician: VAMSI YORK Signed Date and Time: 07/23/2018 3:00 pm Signed by: VAMSI YORK Normal [facility] Vancomycin Troughon 07-24-19 Vancomycin Trough 10.8 ug/mL Low 15.0-20.0 [facility] Comment on above: Result Comment: . Performed By: #### H EMDF, PT, BMP3M, PHOS3, MG3, CK3 #### [address] [address] [place], [place] #### VD25H #### [facility] [address] [place] [address] Basic Metabolic Panelon 06-30 Calcium mass conc 7.9 mg/dL Low 8.4-10.4 [facility] Comment on above: Performed By: #### H EMDF, PT, BMP3M, PHOS3, MG3, CK3 #### [address] #### VD25H #### [facility] [address] [place] [address] Anion gap molar conc 11 Normal [facility] Comment on above: Performed By: #### H EMDF, PT, BMP3M, PHOS3, MG3, CK3 #### [address] [place], [place] #### VD25H #### [facility] [address] [place] [address] CO2 molar conc 28 mmol/L Normal 22-30 [facility] Comment on above: Performed By: #### H EMDF, PT, BMP3M, PHOS3, MG3, CK3 #### [facility] [address] [place], [place] #### VD25H #### [facility] [address] [place] [address] Glucose mass conc 134 mg/dL High 70-100 [facility] Comment on above: Performed By: #### H EMDF, PT, BMP3M, PHOS3, MG3, CK3 #### [address] [address] [facility], [place] #### VD25H #### [facility] [address] [place] [address] Urea nitrogen mass conc 51 mg/dL High 7-20 [facility] Comment on above: Performed By: #### H EMDF, PT, BMP3M, PHOS3, MG3, CK3 #### [address] [address] [place] #### VD25H #### [facility] [address] [place] [address] Creatinine mass conc 1.57 mg/dL High 0.52-1.25 [facility] Comment on above: Performed By: #### H EMDF, PT, BMP3M, PHOS3, MG3, CK3 #### [address] [place], [place] #### VD25H #### [facility] [address] [place] [address] GFR/1.73 sq M predicted among blacks MDRD vol rate/area (S/P/Bld) 54.6 mL/min/{1.73_m2} Normal >60 [facility] Comment on above: Performed By: #### H EMDF, PT, BMP3M, PHOS3, MG3, CK3 #### [address] [place], [place] #### VD25H #### [facility] [address] [place] [address] GFR/1.73 sq M predicted among non-blacks MDRD vol rate/area (S/P/Bld) 45.1 mL/min/{1.73_m2} Normal >60 [facility] Comment on above: Result Comment: Sour ce- MDRD equation with creatinine calibration to IDMS(NKDEP) eGFR not recommended for drug dose adjustment Performed By: #### H EMDF, PT, BMP3M, PHOS3, MG3, CK3 #### [facility] [address] [place] [address] #### VD25H #### [facility] [address] [place] [address] Chloride molar conc 107 mmol/L Normal 98-107 [facility] Comment on above: Performed By: #### H EMDF, PT, BMP3M, PHOS3, MG3, CK3 #### [address] [address] [place], [place] #### VD25H #### [facility] [address] [place] [address] Potassium molar conc 3.8 mmol/L Normal 3.5-5.1 [facility] Comment on above: Performed By: #### H EMDF, PT, BMP3M, PHOS3, MG3, CK3 #### [address] [address] [place] [address] #### VD25H #### [facility] [address] [place] [address] Sodium molar conc 146 mmol/L High 135-145 [facility] Comment on above: Performed By: #### H EMDF, PT, BMP3M, PHOS3, MG3, CK3 #### [address] [facility], [place] #### VD25H #### [facility] [address] [place] [address] CR Abdomen APon 07-22-2018 CR Abdomen AP Patient Name: KATHYA HOOPER Diagnostic Radiology Exam Date/Time 07/22/2018 08:02:02 EDT Exam CR Abdomen AP Ordering Physician MARIA EUGENIA PEREZ Accession Number [id number] CPT4 Codes 77240 () Reason For Exam ileus Report Supine [...] Transcribed Date and Time: 07/22/2018 9:28 Normal [facility] CR Chest Portableon 07-23-19 19 CR Chest Portable Patient Name: KATHYA HOOPER Diagnostic Radiology Exam Date/Time 07/22/2018 16:32:15 EDT Exam CR Chest Portable Ordering Physician MD NATE, [facility] Accession Number [id number] CPT4 Codes 50883 () Reason For Exam Thoracentesis Report Clinical [...] Transcribed Date and Time: 07/22/2018 6:46 Normal [facility] CR Chest Portable Patient Name: KATHYA HOOPER Diagnostic Radiology Exam Date/Time 07/22/2018 06:49:22 EDT Exam CR Chest Portable Ordering Physician MARIA EUGENIA PEREZ Accession Number [id number] CPT4 Codes 87095 () Reason For Exam ETT placement Report [...] Transcribed Date and Time: 07/22/2018 9:31 Normal [facility] CULTURE AND STAIN - FLUIDon 07-22-2018 CULTURE AND STAIN - FLUID CULTURE & STAIN - FLUID --> Status: F No growth at 5 days. STAIN GRAM --> Status: F Moderate polymorphonuclear cells/lpf. Moderate mononuclear cells/lpf No organisms seen. Cytocentrifugation performed. Moderate mononuclear cells/lpf No organisms seen. Cytocentrifugation performed. Normal [facility] Comment on above: Order Comment: Speci men Source Comment:Body Fluid Performed By: #### H EMDF, PT, BMP3M, PHOS3, MG3, CK3 #### [facility] [address] [place] [address] #### VD25H #### [facility] [address] [place] [address] Cell Count,Body Fluidon 06-30 Nucleated Cells 259 {cells}/uL Normal [facility] Comment on above: Performed By: #### H EMDF, PT, BMP3M, PHOS3, MG3, CK3 #### [facility] [address] [place], [place] #### VD25H #### [facility] [address] [place] [address] RBC Count Body Fld 123 {RBC}/uL Normal [facility] Comment on above: Performed By: #### H EMDF, PT, BMP3M, PHOS3, MG3, CK3 #### [facility] [address] [place], [place] #### VD25H #### [facility] [address] [place] [address] Fluid Type thoracentesis Normal [facility] Comment on above: Performed By: #### H EMDF, PT, BMP3M, PHOS3, MG3, CK3 #### [facility] [address] [place], [place] #### VD25H #### [facility] [address] [place] [address] Glucose, Body Fluidon 2018 Fluid Type Thoracentesis Normal [facility] Comment on above: Performed By: #### H EMDF, PT, BMP3M, PHOS3, MG3, CK3 #### [facility] [address] [place], [place] #### VD25H #### [facility] [address] [place] [address] Glucose, Body Fluid 136 mg/dL Normal No Range [facility] Comment on above: Performed By: #### H EMDF, PT, BMP3M, PHOS3, MG3, CK3 #### [facility] [address] [place], [place] #### VD25H #### [facility] [address] [place] [address] Glucose,Bedsideon 07-22-2018 Glucose mass conc 142 mg/dL High 70-100 [facility] Comment on above: Result Comment: Test performed by glucose meter. Results may be 10%-15% lower than serum/plasma values. (CLIA ID [id number]) Performed By: #### H EMDF, PT, BMP3M, PHOS3, MG3, CK3 #### [facility] [address] [place], [place] #### VD25H #### [facility] [address] [place] [address] Glucose mass conc 127 mg/dL High 70-100 [facility] Comment on above: Result Comment: Test performed by glucose meter. Results may be 10%-15% lower than serum/plasma values. (CLIA ID [id number]) Performed By: #### H EMDF, PT, BMP3M, PHOS3, MG3, CK3 #### [facility] [address] [place], [place] #### VD25H #### [facility] [address] [place] [address] Glucose mass conc 139 mg/dL High 70-100 [facility] Comment on above: Result Comment: Test performed by glucose meter. Results may be 10%-15% lower than serum/plasma values. (CLIA ID [id number]) Performed By: #### H EMDF, PT, BMP3M, PHOS3, MG3, CK3 #### [facility] [address] [place], [place] #### VD25H #### [facility] [address] [place] [address] Glucose mass conc 124 mg/dL High 70-100 [facility] Comment on above: Result Comment: Test performed by glucose meter. Results may be 10%-15% lower than serum/plasma values. (CLIA ID [id number]) Performed By: #### H EMDF, PT, BMP3M, PHOS3, MG3, CK3 #### [address] #### VD25H #### [facility] [address] [place] [address] Glucose mass conc 128 mg/dL High 70-100 [facility] Comment on above: Result Comment: Test performed by glucose meter. Results may be 10%-15% lower than serum/plasma values. (CLIA ID [id number]) Performed By: #### H EMDF, PT, BMP3M, PHOS3, MG3, CK3 #### [address] #### VD25H #### [facility] [address] [place] [address] Glucose mass conc 113 mg/dL High 70-100 [facility] Comment on above: Result Comment: Test performed by glucose meter. Results may be 10%-15% lower than serum/plasma values. (CLIA ID [id number]) Performed By: #### H EMDF, PT, BMP3M, PHOS3, MG3, CK3 #### [address] #### VD25H #### [facility] [address] [place] [address] Hemogram w/ Autodiffon 07-22 Abs Baso Cnt 0.1 10*3/uL Normal 0.0-0.2 [facility] Comment on above: Performed By: #### H EMDF, PT, BMP3M, PHOS3, MG3, CK3 #### [address] #### VD25H #### [facility] [address] [place] [address] Abs Neutrophile Cnt 15.2 10*3/uL High 1.8-7.0 [facility] Comment on above: Performed By: #### H EMDF, PT, BMP3M, PHOS3, MG3, CK3 #### [address] #### VD25H #### [facility] [address] [place] [address] Basophils/100 WBC (Bld) 0.6 % Normal 0.0-2.0 [facility] Comment on above: Performed By: #### H EMDF, PT, BMP3M, PHOS3, MG3, CK3 #### [address] #### VD25H #### [facility] [address] [place] [address] Eosinophils #/vol (Bld) 0.2 10*3/uL Normal 0.0-0.5 [facility] Comment on above: Performed By: #### H EMDF, PT, BMP3M, PHOS3, MG3, CK3 #### [address] #### VD25H #### [facility] [address] [place] [address] Eosinophils/100 WBC (Bld) 0.9 % Low 1.0-6.0 [facility] Comment on above: Performed By: #### H EMDF, PT, BMP3M, PHOS3, MG3, CK3 #### [address] #### VD25H #### [facility] [address] [place] [address] Erythrocyte distribution width Ratio (RBC) 13.9 % Normal 11.5-14.5 [facility] Comment on above: Performed By: #### H EMDF, PT, BMP3M, PHOS3, MG3, CK3 #### [address] #### VD25H #### [facility] [address] [place] [address] Granulocytes/100 WBC (Bld) 88.8 % High 40.0-80.0 [facility] Comment on above: Performed By: #### H EMDF, PT, BMP3M, PHOS3, MG3, CK3 #### [address] [place], [place] #### VD25H #### [facility] [address] [place] [address] Hematocrit Volume Fraction (Bld) 31.6 % Low 40.0-52.0 [facility] Comment on above: Performed By: #### H EMDF, PT, BMP3M, PHOS3, MG3, CK3 #### [address] #### VD25H #### [facility] [address] [place] [address] Hemoglobin mass conc (Bld) 10.9 g/dL Low 13.0-18.0 [facility] Comment on above: Performed By: #### H EMDF, PT, BMP3M, PHOS3, MG3, CK3 #### [address] #### VD25H #### [place] [address] [place] [address] Lymphocytes #/vol (Bld) 1.1 10*3/uL Normal 1.0-4.3 [facility] Comment on above: Performed By: #### H EMDF, PT, BMP3M, PHOS3, MG3, CK3 #### [address] #### VD25H #### [place] [address] [place] [address] Lymphocytes/100 WBC (Bld) 6.2 % Low 20.0-40.0 [facility] Comment on above: Performed By: #### H EMDF, PT, BMP3M, PHOS3, MG3, CK3 #### [address] #### VD25H #### [facility] [address] [place] [address] MCH Entitic mass (RBC) 31.1 pg Normal 26.0-34.0 [facility] Comment on above: Performed By: #### H EMDF, PT, BMP3M, PHOS3, MG3, CK3 #### [address] #### VD25H #### [facility] [address] [place] [address] MCHC mass conc (RBC) 34.6 % Normal 32.0-36.0 [facility] Comment on above: Performed By: #### H EMDF, PT, BMP3M, PHOS3, MG3, CK3 #### [address] #### VD25H #### [facility] [address] [place] [address] MCV Entitic volume (RBC) 89.9 fL Normal 80.0-98.0 [facility] Comment on above: Performed By: #### H EMDF, PT, BMP3M, PHOS3, MG3, CK3 #### [address] #### VD25H #### [facility] [address] [place] [address] Monocytes #/vol (Bld) 0.6 10*3/uL Normal 0.0-0.8 [facility] Comment on above: Performed By: #### H EMDF, PT, BMP3M, PHOS3, MG3, CK3 #### [address] #### VD25H #### [facility] [address] [place] [address] Monocytes/100 WBC (Bld) 3.5 % Normal 2.0-10.0 [facility] Comment on above: Performed By: #### H EMDF, PT, BMP3M, PHOS3, MG3, CK3 #### [address] #### VD25H #### [facility] [address] [place] [address] Platelet mean volume Entitic volume (Bld) 7.9 fL Normal 7.4-10.4 [facility] Comment on above: Performed By: #### H EMDF, PT, BMP3M, PHOS3, MG3, CK3 #### [address] [place], [place] #### VD25H #### [facility] [address] [place] [address] Platelets #/vol (Bld) 299 10*3/uL Normal 140-440 [facility] Comment on above: Performed By: #### H EMDF, PT, BMP3M, PHOS3, MG3, CK3 #### [address] [place], [place] #### VD25H #### [facility] [address] [place] [address] RBC #/vol (Bld) 3.52 10*6/uL Low 4.40-5.90 [facility] Comment on above: Performed By: #### H EMDF, PT, BMP3M, PHOS3, MG3, CK3 #### [address] [place], [place] #### VD25H #### [facility] [address] [place] [address] WBC #/vol (Bld) 17.1 10*3/uL High 3.6-10.7 [facility] Comment on above: Performed By: #### H EMDF, PT, BMP3M, PHOS3, MG3, CK3 #### [address] [place], [place] #### VD25H #### [facility] [address] [place] [address] LDH, Body Fluidon 07-22-2018 LDH, Body Fluid 232 U/L Normal No Range [facility] Comment on above: Performed By: #### H EMDF, PT, BMP3M, PHOS3, MG3, CK3 #### [address] #### VD25H #### [facility] [address] [place] [address] Magnesiumon 07-22-2018 Magnesium mass conc 2.6 mg/dL High 1.6-2.3 [facility] Comment on above: Performed By: #### H EMDF, PT, BMP3M, PHOS3, MG3, CK3 #### [facility] [address] [facility] [facility] [place] [address] #### VD25H #### [facility] [address] [place] [address] Medical Cytology 9 Medical Cytology [facility] [id number] DEPARTMENT OF PATHOLOGY AND [facility] LABORATORY MEDICINE [address] [place] [address] FINAL MEDICAL CYTOLOGY REPORT NAME: KATHYA HOOPER : 1955 63 Y M [facility] NO.: [id number] [facility] PROCEDURE 07/22/2018 DATE: PHYSICIAN: [...] . . . . . . 1 [facility] Screened by CYNDI LILLY M.D. The following statement applies to all immunohistochemistry, in situ hybridization, molecular studies, and immunofluorescence testing. The use of one or more reagents in the above tests is regulated as an analyte specific reagent (ASR). These tests were developed and their performance characteristics determined by the clinical laboratories of [facility]. They have not been cleared by [...] negativity on decalcified specimens. Case reviewed at [facility] [address] [place] [address]. DEPARTMENT OF PATHOLOGY AND LABORATORY MEDICINE [place], [place] Normal [facility] Phosphoruson 07-22-2018 Phosphate mass conc 4.6 mg/dL High 2.5-4.5 [facility] Comment on above: Performed By: #### H EMDF, PT, BMP3M, PHOS3, MG3, CK3 #### [address] #### VD25H #### [facility] [address] [place] [address] Procalcitoninon 07-22-2018 Protein mass conc 0.27 ng/mL Abnormal <0.10 [facility] Comment on above: Result Comment: (Cor rect ref.range is <0.09 ng/mL) Test performed: [facility] [employer], [place], [place]. Performed By: #### H EMDF, PT, BMP3M, PHOS3, MG3, CK3 #### [address] #### VD25H #### [facility] [address] [place] [address] Interpretation See Below Normal [facility] Comment on above: Result Comment: PCT <0.50 = Low risk of severe sepsis and/or septic shock. PCT >2.00 = High risk of severe sepsis and/or septic shock. Performed By: #### H EMDF, PT, BMP3M, PHOS3, MG3, CK3 #### [facility] [address] [place], [place] #### VD25H #### [facility] [address] [place] [address] STAIN ACID-FASTon 07-22-2018 STAIN ACID-FAST STAIN ACID-FAST --> Status: F No acid-fast bacilli seen in smear. - Method: AFB by Kinyoun Stain - Method: AFB by Kinyoun Stain Normal [facility] Comment on above: Performed By: #### H EMDF, PT, BMP3M, PHOS3, MG3, CK3 #### [facility] [address] [place] [place] #### VD25H #### [facility] [address] [place] [place] [address] Triglycerideon 07-22-2018 Triglyceride mass conc 96 mg/dL Normal <150 [facility] Comment on above: Performed By: #### H EMDF, PT, BMP3M, PHOS3, MG3, CK3 #### [address] #### VD25H #### [facility] [address] [place] [address] US Thora-Aspir Pleura w/ Evelin geon 07-22-2018 US Thora-Aspir Pleura w/ Image Patient Name: KATHYA HOOPRE Ultrasound Exam Date/Time 07/22/2018 14:23:28 EDT Exam US Thora-Aspir Pleura w/ Image Ordering Physician MARIA EUGENIA PEREZ Accession Number [id number] CPT4 Codes 05620 () Reason For Exam L thoracentesis Report Reasons for examination: Left pleural effusion. Respiratory insufficiency. Ultrasound was performed of the left hemithorax, localizing the pleural fluid. After obtaining informed consent, sterile preparation, draping, and local anesthetic administration, thoracentesis was performed under direct ultrasonographic guidance with a 5 Chinese Yueh needle/catheter. A total of 300 mL [...] Transcribed Date and Time: 07/22/2018 2:55 Normal [facility] pH,Misc Body Fluidon 019 pH,Misc 7.996 Normal None Available [facility] Comment on above: Performed By: #### H EMDF, PT, BMP3M, PHOS3, MG3, CK3 #### [facility] [address] [place] [address] #### VD25H #### [facility] [address] [place] [address] Arterial Blood Gaseson 07-21 CO2 molar conc 29.8 mmol/L High 23.0-27.0 [facility] Comment on above: Performed By: #### T SGL #### [facility] [address] [place] [address] HCO3 molar conc (Bld) 28.7 mmol/L High 21.0-25.0 [facility] Comment on above: Performed By: #### T SGL #### [address] [address] [place] [address] Hemoglobin mass conc (Bld) 11.7 g/dL Normal ScreenOnly [facility] Comment on above: Performed By: #### T SGL #### [address] [address] [place] [address] Oxygen ppres (Bld) 144.9 mm[Hg] High 80.0-100.0 [facility] Comment on above: Performed By: #### T SGL #### [facility] [address] [place] [address] Oxygen saturation in Blood 98.4 % Normal 95.0-100.0 [facility] Comment on above: Performed By: #### T SGL #### [facility] [address] [place] [address] pCO2 36.8 mm[Hg] Normal 35.0-45.0 [facility] Comment on above: Performed By: #### T SGL #### [facility] [address] [place] [address] pH (Bld) 7.510 High 7.350-7.450 [facility] Comment on above: Performed By: #### T SGL #### [facility] [address] [place] [address] Std Base Excess 5.5 mmol/L High -3.0-3.0 [facility] Comment on above: Performed By: #### T SGL #### [facility] [address] [place] [address] FIO2 .50 Normal [facility] Comment on above: Performed By: #### T SGL #### [address] [place] [address] CR Abdomen APon 07-21-2018 CR Abdomen AP Patient Name: KATHYA HOOPER Diagnostic Radiology Exam Date/Time 07/21/2018 06:41:07 EDT Exam CR Abdomen AP Ordering Physician [id number] THAKKAR Accession Number [id number] CPT4 Codes 13161 () Reason For Exam ileus Report Reason [...] Transcribed Date and Time: 07/21/2018 7:23 Normal [facility] CR Chest Portableon 07-22-19 CR Chest Portable Patient Name: KATHYA HOOPER Diagnostic Radiology Exam Date/Time 07/21/2018 06:40:50 EDT Exam CR Chest Portable Ordering Physician MARIA EUGENIA PEREZ Accession Number [id number] CPT4 Codes 99551 () Reason For Exam ETT placement Report [...] NICHOLAS Transcribed Date and Time: 07/21/2018 5:38 [facility] CR Chest Portable Patient Name: KATHYA HOOPER Diagnostic Radiology Exam Date/Time 07/21/2018 01:11:50 EDT Exam CR Chest Portable Ordering Physician MD GRIFFIN NICHOLAS Accession Number [id number] CPT4 Codes 83645 () Reason For Exam s/p bronch Report [...] Transcribed Date and Time: 07/21/2018 1:26 Normal [facility] Comp Metabolic Panelon 07-21 Calcium mass conc 7.9 mg/dL Low 8.4-10.4 [facility] Comment on above: Performed By: #### T SGL #### [facility] [address] [place] [address] ALP enzyme act/vol 85 U/L Normal 38-126 [facility] Comment on above: Performed By: #### T SGL #### [facility] [address] [place] [address] ALT enzyme act/vol 105 U/L High 13-69 [facility] Comment on above: Performed By: #### T SGL #### [facility] [address] [place] [address] Anion gap molar conc 8 Normal [facility] Comment on above: Performed By: #### T SGL #### [facility] [address] [place] [address] AST enzyme act/vol 78 U/L High 15-46 [facility] Comment on above: Performed By: #### T SGL #### [facility] [address] [place] [address] Bilirubin mass conc 1.1 mg/dL Normal 0.2-1.3 [facility] Comment on above: Performed By: #### T SGL #### [facility] [address] [place] [address] CO2 molar conc 33 mmol/L High 22-30 [facility] Comment on above: Performed By: #### T SGL #### [place] [place] [address] Creatinine mass conc 0.90 mg/dL Normal 0.52-1.25 [facility] Comment on above: Performed By: #### T SGL #### [address] [place] [address] GFR/1.73 sq M predicted among blacks MDRD vol rate/area (S/P/Bld) mL/min/{1.73_m2} Normal >60 [facility] Comment on above: Performed By: #### T SGL #### [address] [place] [address] GFR/1.73 sq M predicted among non-blacks MDRD vol rate/area (S/P/Bld) mL/min/{1.73_m2} Normal >60 [facility] [facility] Comment on above: Result Comment: Sour ce- MDRD equation with creatinine calibration to IDMS(NKDEP) eGFR not recommended for drug dose adjustment Performed By: #### T SGL #### [address] [place] [address] Glucose mass conc 113 mg/dL High 70-100 [facility] Comment on above: Performed By: #### T SGL #### [address] [place] [address] Protein mass conc 5.6 g/dL Low 6.3-8.2 [facility] Comment on above: Performed By: #### T SGL #### [address] [place] [address] Urea nitrogen mass conc 28 mg/dL High 7-20 [facility] Comment on above: Performed By: #### T SGL #### [address] [place] [address] Chloride molar conc 104 mmol/L Normal 98-107 [facility] Comment on above: Performed By: #### T SGL #### [address] [place] [address] Potassium molar conc 3.6 mmol/L Normal 3.5-5.[address] [facility] Comment on above: Performed By: #### T SGL #### [facility] [address] [place] [address] Sodium molar conc 145 mmol/L Normal 135-145 [facility] Comment on above: Performed By: #### T SGL #### [facility] [address] [place] [address] Albumin mass conc 2.8 g/dL Low 3.5-5.0 [facility] Comment on above: Performed By: #### T SGL #### [facility] [address] [place] [address] Glucose,Bedsideon 07-21-2018 Glucose mass conc 124 mg/dL High 70-100 [facility] Comment on above: Result Comment: Test performed by glucose meter. Results may be 10%-15% lower than serum/plasma values. (CLIA ID [id number]) Performed By: #### H EMDF, PT, BMP3M, PHOS3, MG3, CK3 #### [facility] [address] [place] [address] #### VD25H #### [facility] [address] [place] [address] Glucose mass conc 151 mg/dL High 70-[address] [facility] Comment on above: Result Comment: Test performed by glucose meter. Results may be 10%-15% lower than serum/plasma values. (CLIA ID [id number]) Performed By: #### H EMDF, PT, BMP3M, PHOS3, MG3, CK3 #### [facility] [address] [place] [address] #### VD25H #### [facility] [address] [place] [address] Glucose mass conc 127 mg/dL High 70-100 [facility] Comment on above: Result Comment: Test performed by glucose meter. Results may be 10%-15% lower than serum/plasma values. (CLIA ID [id number]) Performed By: #### T SGL #### [address] [place] [address] Glucose mass conc 113 mg/dL High 70-100 [facility] Comment on above: Result Comment: Test performed by glucose meter. Results may be 10%-15% lower than serum/plasma values. (CLIA ID [id number]) Performed By: #### A DDON #### [address] [place] [address] Hemogram w/ Autodiffon 07-21 Abs Baso Cnt 0.1 10*3/uL Normal 0.0-0.2 [facility] Comment on above: Performed By: #### T SGL #### [address] [address] Abs Neutrophile Cnt 11.0 10*3/uL High 1.8-7.0 [facility] Comment on above: Performed By: #### T SGL #### [address] [place] [address] Basophils/100 WBC (Bld) 0.5 % Normal 0.0-2.0 [facility] Comment on above: Performed By: #### T SGL #### [address] [place] [address] Eosinophils #/vol (Bld) 0.3 10*3/uL Normal 0.0-0.5 [facility] Comment on above: Performed By: #### T SGL #### [address] [place] [address] Eosinophils/100 WBC (Bld) 1.9 % Normal 1.0-6.0 [facility] Comment on above: Performed By: #### T SGL #### [address] [address] Erythrocyte distribution width Ratio (RBC) 13.7 % Normal 11.5-14.5 [facility] Comment on above: Performed By: #### T SGL #### [address] [address] Granulocytes/100 WBC (Bld) 81.0 % High 40.0-80.0 [facility] Comment on above: Performed By: #### T SGL #### [address] [place] [address] Hematocrit Volume Fraction (Bld) 32.1 % Low 40.0-52.0 [facility] Comment on above: Performed By: #### T SGL #### [address] [place] [address] Hemoglobin mass conc (Bld) 10.7 g/dL Low 13.0-18.0 [facility] Comment on above: Performed By: #### T SGL #### [address] [place] [address] Lymphocytes #/vol (Bld) 1.3 10*3/uL Normal 1.0-4.3 [facility] Comment on above: Performed By: #### T SGL #### [address] [place] [address] Lymphocytes/100 WBC (Bld) 9.8 % Low 20.0-40.0 [facility] Comment on above: Performed By: #### T SGL #### [address] [place] [address] MCH Entitic mass (RBC) 29.0 pg Normal 26.0-34.0 [facility] Comment on above: Performed By: #### T SGL #### [address] [place] [address] MCHC mass conc (RBC) 33.4 % Normal 32.0-36.0 [facility] Comment on above: Performed By: #### T SGL #### [address] [place] [address] MCV Entitic volume (RBC) 86.9 fL Normal 80.0-98.0 [facility] Comment on above: Performed By: #### T SGL #### [address] [place] [address] Monocytes #/vol (Bld) 0.9 10*3/uL High 0.0-0.8 [facility] Comment on above: Performed By: #### T SGL #### [address] [place] [address] Monocytes/100 WBC (Bld) 6.8 % Normal 2.0-10.0 [facility] Comment on above: Performed By: #### T SGL #### [facility] [address] [place] [address] Platelet mean volume Entitic volume (Bld) 7.4 fL Normal 7.4-10.4 [facility] Comment on above: Performed By: #### T SGL #### [facility] [address] [place] [address] Platelets #/vol (Bld) 367 10*3/uL Normal 140-440 [facility] Comment on above: Performed By: #### T SGL #### [facility] [address] [place] [address] RBC #/vol (Bld) 3.69 10*6/uL Low 4.40-5.90 [facility] Comment on above: Performed By: #### T SGL #### [address] [place] [address] WBC #/vol (Bld) 13.6 10*3/uL High 3.6-10.7 [facility] Comment on above: Performed By: #### T SGL #### [facility] [address] [place] [address] Magnesiumon 07-21-2018 Magnesium mass conc 2.6 mg/dL High 1.6-2.3 [facility] Comment on above: Performed By: #### T SGL #### [address] [place] [address] Phosphoruson 07-21-2018 Phosphate mass conc 4.2 mg/dL Normal 2.5-4.5 [facility] Comment on above: Performed By: #### T SGL #### [facility] [address] [place] [address] Triglycerideon 07-21-2018 Triglyceride mass conc 105 mg/dL Normal <150 [facility] Comment on above: Performed By: #### T SGL #### [facility] [address] [place] [address] Add on test from HISon 07-20 Add on test from HIS Accepted Normal [facility] Comment on above: Result Comment: Spec imen available & acceptable for analysis. Performed By: #### A DDON #### [facility] [address] [place] [address] Basic Metabolic Panelon 06-30 Calcium mass conc 7.7 mg/dL Low 8.4-10.4 [facility] Comment on above: Performed By: #### A DDON #### [facility] [address] [place] [address] Glucose mass conc 96 mg/dL Normal 70-100 [facility] Comment on above: Performed By: #### A DDON #### [address] [place] [address] Urea nitrogen mass conc 22 mg/dL High 7-20 [facility] Comment on above: Performed By: #### A DDON #### [address] [place] [address] Anion gap molar conc 10 Normal [facility] Comment on above: Performed By: #### A DDON #### [address] [place] [address] CO2 molar conc 29 mmol/L Normal 22-30 [facility] Comment on above: Performed By: #### A DDON #### [facility] [address] [place] [place] [address] Creatinine mass conc 0.87 mg/dL Normal 0.52-1.25 [facility] Comment on above: Performed By: #### A DDON #### [facility] [address] [place] [address] GFR/1.73 sq M predicted among blacks MDRD vol rate/area (S/P/Bld) mL/min/{1.73_m2} Normal >60 [facility] Comment on above: Performed By: #### A DDON #### [facility] [address] [place] [place] [address] GFR/1.73 sq M predicted among non-blacks MDRD vol rate/area (S/P/Bld) mL/min/{1.73_m2} Normal >60 [facility] Comment on above: Result Comment: Sour ce- MDRD equation with creatinine calibration to IDMS(NKDEP) eGFR not recommended for drug dose adjustment Performed By: #### A DDON #### [facility] [address] [place] [address] Potassium molar conc 3.6 mmol/L Normal 3.5-5.1 [facility] Comment on above: Performed By: #### A DDON #### [facility] [address] [place] [address] Chloride molar conc 105 mmol/L Normal 98-107 [facility] Comment on above: Performed By: #### A DDON #### [facility] [address] [place] [address] Sodium molar conc 144 mmol/L Normal 135-145 [facility] Comment on above: Performed By: #### A DDON #### [facility] [address] [place] [address] CR Abdomen APon 07-20-2018 CR Abdomen AP Patient Name: KATHYA HOOPER Diagnostic Radiology Exam Date/Time 07/20/2018 08:39:45 EDT Exam CR Abdomen AP Ordering Physician [id number] THAKKAR Accession Number [id number] CPT4 Codes 59519 () Reason For Exam ileus Report Clinical [...] Transcribed Date and Time: 07/20/2018 9:29 Normal [facility] CR Chest Portableon 07-21-19 19 CR Chest Portable Patient Name: KATHYA HOOPER Diagnostic Radiology Exam Date/Time 07/20/2018 08:39:26 EDT Exam CR Chest Portable Ordering Physician MARIA EUGENIA PEREZ Accession Number [id number] CPT4 Codes 46502 () Reason For Exam ETT placement Report [...] Transcribed Date and Time: 07/20/2018 9:28 Normal [facility] CT Abdomen/Pelvis w/ Contras ton 07-20-2018 CT Abdomen/Pelvis w/ Contrast Patient Name: KATHYA HOOPER CT Exam Date/Time 07/20/2018 11:30:[address] Abdomen/Pelvis w/ IV Contrast (IV Onl Ordering Physician JOYA ROJAS Accession Number [id number] CPT4 Codes 57142 (CT Abdomen/Pelvis w/ IV Contrast (IV Onl) [...] Transcribed Date and Time: 07/20/2018 1:10 Normal [facility] CT Chest w/ Contraston 07-20 CT Chest w/ Contrast Patient Name: KATHYA RAY CT Exam Date/Time 07/20/2018 11:30:[address] Chest w/ Contrast Ordering Physician JOYA ROJAS Accession Number [id number] CPT4 Codes 15463 (), Q9967 (CT ISOVUE [id number]) Reason For Exam SOB, possible pneumonia Report [...] Transcribed Date and Time: 07/20/2018 1:28 Normal [facility] Glucose,Bedsideon 07-20-2018 Glucose mass conc 128 mg/dL High 70-100 [facility] Comment on above: Result Comment: Test performed by glucose meter. Results may be 10%-15% lower than serum/plasma values. (CLIA ID [id number]) Performed By: #### A DDON #### [address] Hemogram w/ Autodiffon 07-20 Abs Baso Cnt 0.1 10*3/uL Normal 0.0-0.2 [facility] Comment on above: Performed By: #### H EMDF, PT, BMP3M, PHOS3, MG3, CK3 #### [address] #### VD25H #### [facility] [address] [place] [address] Abs Neutrophile Cnt 13.0 10*3/uL High 1.8-7.0 [facility] Comment on above: Performed By: #### H EMDF, PT, BMP3M, PHOS3, MG3, CK3 #### [address] [place] #### VD25H #### [facility] [address] [place] [address] Basophils/100 WBC (Bld) 0.3 % Normal 0.0-2.0 [facility] Comment on above: Performed By: #### H EMDF, PT, BMP3M, PHOS3, MG3, CK3 #### [address] #### VD25H #### [facility] [address] [place] [address] Eosinophils #/vol (Bld) 0.3 10*3/uL Normal 0.0-0.5 [facility] Comment on above: Performed By: #### H EMDF, PT, BMP3M, PHOS3, MG3, CK3 #### [address] #### VD25H #### [facility] [address] [place] [address] Eosinophils/100 WBC (Bld) 1.9 % Normal 1.0-6.0 [facility] Comment on above: Performed By: #### H EMDF, PT, BMP3M, PHOS3, MG3, CK3 #### [address] #### VD25H #### [facility] [address] [place] [address] Erythrocyte distribution width Ratio (RBC) 13.3 % Normal 11.5-14.5 [facility] Comment on above: Performed By: #### H EMDF, PT, BMP3M, PHOS3, MG3, CK3 #### [address] #### VD25H #### [facility] [address] [place] [address] Granulocytes/100 WBC (Bld) 81.8 % High 40.0-80.0 [facility] Comment on above: Performed By: #### H EMDF, PT, BMP3M, PHOS3, MG3, CK3 #### [address] #### VD25H #### [facility] [address] [place] [address] Hematocrit Volume Fraction (Bld) 33.6 % Low 40.0-52.0 [facility] Comment on above: Performed By: #### H EMDF, PT, BMP3M, PHOS3, MG3, CK3 #### [address] [place] #### VD25H #### [facility] [address] [place] [address] Hemoglobin mass conc (Bld) 11.4 g/dL Low 13.0-18.0 [facility] Comment on above: Performed By: #### H EMDF, PT, BMP3M, PHOS3, MG3, CK3 #### [address] #### VD25H #### [facility] [address] [place] [address] Lymphocytes #/vol (Bld) 1.5 10*3/uL Normal 1.0-4.3 [facility] Comment on above: Performed By: #### H EMDF, PT, BMP3M, PHOS3, MG3, CK3 #### [address] #### VD25H #### [address] [place] [address] Lymphocytes/100 WBC (Bld) 9.2 % Low 20.0-40.0 [facility] Comment on above: Performed By: #### H EMDF, PT, BMP3M, PHOS3, MG3, CK3 #### [address] #### VD25H #### [facility] [address] [place] [address] MCH Entitic mass (RBC) 29.3 pg Normal 26.0-34.0 [facility] Comment on above: Performed By: #### H EMDF, PT, BMP3M, PHOS3, MG3, CK3 #### [address] #### VD25H #### [facility] [address] [place] [address] MCHC mass conc (RBC) 33.9 % Normal 32.0-36.0 [facility] Comment on above: Performed By: #### H EMDF, PT, BMP3M, PHOS3, MG3, CK3 #### [facility] [address] [place], [place] #### VD25H #### [facility] [address] [place] [address] MCV Entitic volume (RBC) 86.5 fL Normal 80.0-98.0 [facility] Comment on above: Performed By: #### H EMDF, PT, BMP3M, PHOS3, MG3, CK3 #### [address] [place], [place] #### VD25H #### [facility] [address] [place] [address] Monocytes #/vol (Bld) 1.1 10*3/uL High 0.0-0.8 [facility] Comment on above: Performed By: #### H EMDF, PT, BMP3M, PHOS3, MG3, CK3 #### [address] #### VD25H #### [facility] [address] [place] [address] Monocytes/100 WBC (Bld) 6.8 % Normal 2.0-10.0 [facility] Comment on above: Performed By: #### H EMDF, PT, BMP3M, PHOS3, MG3, CK3 #### [address] #### VD25H #### [facility] [address] [place] [address] Platelet mean volume Entitic volume (Bld) 7.5 fL Normal 7.4-10.4 [facility] Comment on above: Performed By: #### H EMDF, PT, BMP3M, PHOS3, MG3, CK3 #### [address] [place], [place] #### VD25H #### [facility] [address] [place] [address] Platelets #/vol (Bld) 375 10*3/uL Normal 140-440 [facility] Comment on above: Performed By: #### H EMDF, PT, BMP3M, PHOS3, MG3, CK3 #### [facility] [address] [place], [place] #### VD25H #### [facility] [address] [place] [address] RBC #/vol (Bld) 3.88 10*6/uL Low 4.40-5.90 [facility] Comment on above: Performed By: #### H EMDF, PT, BMP3M, PHOS3, MG3, CK3 #### [address] [place], [place] #### VD25H #### [facility] [address] [place] [address] WBC #/vol (Bld) 15.9 10*3/uL High 3.6-10.7 [facility] Comment on above: Performed By: #### H EMDF, PT, BMP3M, PHOS3, MG3, CK3 #### [address] #### VD25H #### [facility] [address] [place] [address] Phosphoruson 07-20-2018 Phosphate mass conc 5.5 mg/dL High 2.5-4.5 [facility] Comment on above: Performed By: #### A DDON #### [address] Add on test from HISon 07-19 Add on test from HIS Accepted Normal [facility] Comment on above: Result Comment: Spec imen available & acceptable for analysis. Performed By: #### H EMDF, PT, BMP3M, PHOS3, MG3, CK3 #### [address] [place], [place] #### VD25H #### [facility] [address] [place] [address] Arterial Blood Gaseson 07-19 CO2 molar conc 31.5 mmol/L High 23.0-27.0 [facility] Comment on above: Performed By: #### H EMDF, PT, BMP3M, PHOS3, MG3, CK3 #### [address] [place], [place] #### VD25H #### [facility] [address] [place] [address] HCO3 molar conc (Bld) 30.2 mmol/L High 21.0-25.0 [facility] Comment on above: Performed By: #### H EMDF, PT, BMP3M, PHOS3, MG3, CK3 #### [address] [place] #### VD25H #### [facility] [address] [place] [address] Hemoglobin mass conc (Bld) 11.7 g/dL Normal ScreenOnly [facility] Comment on above: Performed By: #### H EMDF, PT, BMP3M, PHOS3, MG3, CK3 #### [address] [place] #### VD25H #### [facility] [address] [place] [address] Oxygen ppres (Bld) 85.1 mm[Hg] Normal 80.0-100.0 [facility] Comment on above: Performed By: #### H EMDF, PT, BMP3M, PHOS3, MG3, CK3 #### [address] [place] #### VD25H #### [facility] [address] [facility] [place] [address] Oxygen saturation in Blood 95.9 % Normal 95.0-100.0 [facility] Comment on above: Performed By: #### H EMDF, PT, BMP3M, PHOS3, MG3, CK3 #### [address] [place], [place] #### VD25H #### [facility] [address] [place] [address] pCO2 43.6 mm[Hg] Normal 35.0-45.0 [facility] Comment on above: Performed By: #### H EMDF, PT, BMP3M, PHOS3, MG3, CK3 #### [facility] [address] [facility], [place] #### VD25H #### [facility] [address] [place] [address] pH (Bld) 7.458 High 7.350-7.450 [facility] Comment on above: Performed By: #### H EMDF, PT, BMP3M, PHOS3, MG3, CK3 #### [facility] [address] [facility] #### VD25H #### [facility] [address] [place] [address] Std Base Excess 5.7 mmol/L High -3.0-3.0 [facility] Comment on above: Performed By: #### H EMDF, PT, BMP3M, PHOS3, MG3, CK3 #### [address] [facility], [place] #### VD25H #### [facility] [address] [place] [address] FIO2 40% Normal [facility] Comment on above: Performed By: #### H EMDF, PT, BMP3M, PHOS3, MG3, CK3 #### [address] [facility], [place] #### VD25H #### [facility] [address] [place] [address] Basic Metabolic Panelon 03-2 Calcium mass conc 7.5 mg/dL Low 8.4-10.4 [facility] Comment on above: Performed By: #### H EMDF, PT, BMP3M, PHOS3, MG3, CK3 #### [facility] [address] [facility] #### VD25H #### [facility] [address] [place] [address] Glucose mass conc 274 mg/dL High 70-100 [facility] Comment on above: Performed By: #### H EMDF, PT, BMP3M, PHOS3, MG3, CK3 #### [facility] [address] [place] #### VD25H #### [facility] [address] [place] [address] Anion gap molar conc 6 Normal [facility] Comment on above: Performed By: #### H EMDF, PT, BMP3M, PHOS3, MG3, CK3 #### [facility] [address] [place] #### VD25H #### [facility] [address] [place] [address] CO2 molar conc 31 mmol/L High 22-30 [facility] Comment on above: Performed By: #### H EMDF, PT, BMP3M, PHOS3, MG3, CK3 #### [address] #### VD25H #### [facility] [address] [place] [address] Creatinine mass conc 0.64 mg/dL Normal 0.52-1.25 [facility] Comment on above: Performed By: #### H EMDF, PT, BMP3M, PHOS3, MG3, CK3 #### [address] [place] #### VD25H #### [facility] [address] [place] [address] GFR/1.73 sq M predicted among blacks MDRD vol rate/area (S/P/Bld) mL/min/{1.73_m2} Normal >60 [facility] Comment on above: Performed By: #### H EMDF, PT, BMP3M, PHOS3, MG3, CK3 #### [address] [place] #### VD25H #### [facility] [address] [place] [address] GFR/1.73 sq M predicted among non-blacks MDRD vol rate/area (S/P/Bld) mL/min/{1.73_m2} Normal >60 [facility] Comment on above: Result Comment: Sour ce- MDRD equation with creatinine calibration to IDMS(NKDEP) eGFR not recommended for drug dose adjustment Performed By: #### H EMDF, PT, BMP3M, PHOS3, MG3, CK3 #### [facility] [address] [place] #### VD25H #### [facility] [address] [place] [address] Urea nitrogen mass conc 15 mg/dL Normal 7-20 [facility] Comment on above: Performed By: #### H EMDF, PT, BMP3M, PHOS3, MG3, CK3 #### [address] [place] #### VD25H #### [facility] [address] [place] [address] Chloride molar conc 105 mmol/L Normal 98-107 [facility] Comment on above: Performed By: #### H EMDF, PT, BMP3M, PHOS3, MG3, CK3 #### [address] [place] #### VD25H #### [facility] [address] [place] [address] Potassium molar conc 4.3 mmol/L Normal 3.5-5.1 [facility] Comment on above: Performed By: #### H EMDF, PT, BMP3M, PHOS3, MG3, CK3 #### [facility] [address] [place] #### VD25H #### [facility] [address] [place] [address] Sodium molar conc 141 mmol/L Normal 135-145 [facility] Comment on above: Performed By: #### H EMDF, PT, BMP3M, PHOS3, MG3, CK3 #### [address] [place] #### VD25H #### [facility] [address] [place] [address] CR Abdomen APon 07-19-2018 CR Abdomen AP Patient Name: KATHYA HOOPER Diagnostic Radiology Exam Date/Time 07/19/2018 06:44:12 EDT Exam CR Abdomen AP Ordering Physician [id number] JOYA PERRY Accession Number [id number] CPT4 Codes 55645 () Reason For Exam ileus Report Abdomen: [...] Transcribed Date and Time: 07/19/2018 7:46 Normal [facility] CR Chest Portableon 07-20-19 19 CR Chest Portable Patient Name: KATHYA HOOPER Diagnostic Radiology Exam Date/Time 07/19/2018 06:43:52 EDT Exam CR Chest Portable Ordering Physician MARIA EUGENIA PEREZ Accession Number [id number] CPT4 Codes 80416 () Reason For Exam ETT placement Report [...] Final Dictated: 07/19/2018 7:44 am Dictating Physician: JOHNSON, MD, PETE Signed Date and Time: 07/19/2018 7:45 am Signed by: MD ELIZABETH, PETE Transcribed Date and Time: 07/19/2018 7:44 Normal [facility] Glucose,Bedsideon 07-19-2018 Glucose mass conc 95 mg/dL Normal 70-100 [facility] Comment on above: Result Comment: Test performed by glucose meter. Results may be 10%-15% lower than serum/plasma values. (CLIA ID [id number]) Performed By: #### H EMDF, PT, BMP3M, PHOS3, MG3, CK3 #### [facility] [address] [place], [place] #### VD25H #### [facility] [address] [facility] [place] [address] Hemogram w/ Autodiffon 07-19 Abs Baso Cnt 0.1 10*3/uL Normal 0.0-0.2 [facility] Comment on above: Performed By: #### H EMDF, PT, BMP3M, PHOS3, MG3, CK3 #### [facility] [address], [place] #### VD25H #### [facility] [address] [facility] [place] [address] Abs Neutrophile Cnt 9.8 10*3/uL High 1.8-7.0 [facility] Comment on above: Performed By: #### H EMDF, PT, BMP3M, PHOS3, MG3, CK3 #### [facility] [address] [place], [place] #### VD25H #### [facility] [address] [facility] [place] [address] Basophils/100 WBC (Bld) 0.5 % Normal 0.0-2.0 [facility] Comment on above: Performed By: #### H EMDF, PT, BMP3M, PHOS3, MG3, CK3 #### [facility] [address] [place], [place] #### VD25H #### [facility] [address] [place] [address] Eosinophils #/vol (Bld) 0.3 10*3/uL Normal 0.0-0.5 [facility] Comment on above: Performed By: #### H EMDF, PT, BMP3M, PHOS3, MG3, CK3 #### [facility] [address], [place] #### VD25H #### [facility] [address] [place] [address] Eosinophils/100 WBC (Bld) 2.5 % Normal 1.0-6.0 [facility] Comment on above: Performed By: #### H EMDF, PT, BMP3M, PHOS3, MG3, CK3 #### [address] #### VD25H #### [facility] [address] [place] [address] Erythrocyte distribution width Ratio (RBC) 13.3 % Normal 11.5-14.5 [facility] Comment on above: Performed By: #### H EMDF, PT, BMP3M, PHOS3, MG3, CK3 #### [address] #### VD25H #### [facility] [address] [place] [address] Granulocytes/100 WBC (Bld) 80.4 % High 40.0-80.0 [facility] Comment on above: Performed By: #### H EMDF, PT, BMP3M, PHOS3, MG3, CK3 #### [address] #### VD25H #### [facility] [address] [place] [address] Hematocrit Volume Fraction (Bld) 30.6 % Low 40.0-52.0 [facility] Comment on above: Performed By: #### H EMDF, PT, BMP3M, PHOS3, MG3, CK3 #### [address] #### VD25H #### [facility] [address] [place] [address] Hemoglobin mass conc (Bld) 10.5 g/dL Low 13.0-18.0 [facility] Comment on above: Performed By: #### H EMDF, PT, BMP3M, PHOS3, MG3, CK3 #### [address] #### VD25H #### [facility] [address] [place] [address] Lymphocytes #/vol (Bld) 1.1 10*3/uL Normal 1.0-4.3 [facility] Comment on above: Performed By: #### H EMDF, PT, BMP3M, PHOS3, MG3, CK3 #### [address] #### VD25H #### [place] [address] [place] [address] Lymphocytes/100 WBC (Bld) 9.1 % Low 20.0-40.0 [facility] Comment on above: Performed By: #### H EMDF, PT, BMP3M, PHOS3, MG3, CK3 #### [address] #### VD25H #### [place] [address] [place] [address] MCH Entitic mass (RBC) 29.7 pg Normal 26.0-34.0 [facility] Comment on above: Performed By: #### H EMDF, PT, BMP3M, PHOS3, MG3, CK3 #### [address] #### VD25H #### [facility] [address] [place] [address] MCHC mass conc (RBC) 34.3 % Normal 32.0-36.0 [facility] Comment on above: Performed By: #### H EMDF, PT, BMP3M, PHOS3, MG3, CK3 #### [address] #### VD25H #### [facility] [address] [place] [address] MCV Entitic volume (RBC) 86.7 fL Normal 80.0-98.0 [facility] Comment on above: Performed By: #### H EMDF, PT, BMP3M, PHOS3, MG3, CK3 #### [address] #### VD25H #### [facility] [address] [place] [address] Monocytes #/vol (Bld) 0.9 10*3/uL High 0.0-0.8 [facility] Comment on above: Performed By: #### H EMDF, PT, BMP3M, PHOS3, MG3, CK3 #### [address] #### VD25H #### [place] [address] [place] [address] Monocytes/100 WBC (Bld) 7.5 % Normal 2.0-10.0 [facility] Comment on above: Performed By: #### H EMDF, PT, BMP3M, PHOS3, MG3, CK3 #### [address] #### VD25H #### [place] [address] [place] [address] Platelet mean volume Entitic volume (Bld) 7.3 fL Low 7.4-10.4 [facility] Comment on above: Performed By: #### H EMDF, PT, BMP3M, PHOS3, MG3, CK3 #### [address] #### VD25H #### [facility] [address] [place] [address] Platelets #/vol (Bld) 329 10*3/uL Normal 140-440 [facility] Comment on above: Performed By: #### H EMDF, PT, BMP3M, PHOS3, MG3, CK3 #### [address] #### VD25H #### [facility] [address] [place] [address] RBC #/vol (Bld) 3.53 10*6/uL Low 4.40-5.90 [facility] Comment on above: Performed By: #### H EMDF, PT, BMP3M, PHOS3, MG3, CK3 #### [address] #### VD25H #### [facility] [address] [place] [address] WBC #/vol (Bld) 12.2 10*3/uL High 3.6-10.7 [facility] Comment on above: Performed By: #### H EMDF, PT, BMP3M, PHOS3, MG3, CK3 #### [address] #### VD25H #### [facility] [address] [place] [address] Magnesiumon 07-19-2018 Magnesium mass conc 2.3 mg/dL Normal 1.6-2.3 [facility] Comment on above: Performed By: #### H EMDF, PT, BMP3M, PHOS3, MG3, CK3 #### [address] #### VD25H #### [facility] [address] [facility] [place] [address] Procalcitoninon 07-19-2018 Protein mass conc 0.15 ng/mL Abnormal <0.10 [facility] Comment on above: Performed By: #### H EMDF, PT, BMP3M, PHOS3, MG3, CK3 #### [address] #### VD25H #### [facility] [address] [place] [address] Interpretation See Below Normal [facility] Comment on above: Result Comment: PCT <0.50 = Low risk of severe sepsis and/or septic shock. PCT >2.00 = High risk of severe sepsis and/or septic shock. Performed By: #### H EMDF, PT, BMP3M, PHOS3, MG3, CK3 #### [facility] [address] [place] [address] #### VD25H #### [facility] [address] [place] [address] VL Venous Duplex US Lower Ex t Bilateralon 07-19-2018 VL Venous Duplex US Lower Ext Bilateral Patient Name: KATHYA HOOPER Ultrasound Exam Date/Time 07/19/2018 11:10:14 EDT Exam VL Venous Duplex US Lower Ext Bilateral Ordering Physician ETIENNE MARTÍNEZ JULIE Accession Number [id number] CPT4 Codes 48879 () Reason For Exam edema Report [facility] --- Lower Extremity Venous Duplex Report Patient Name: Kathya Hooper : 1955 Study Date: 07/19/2018 W (63yrs) Age: 63 Account: [id number] Gender: M Loc: T209 BP: Ordering: Yesenia Martínez Technologist: Ordering Physician: Yesenia Martínez Hammersmith Helper: León Chaidez RVT, [facility] Interpreting Physician: Ricardo Hall MD --- Location: [facility] --- INDICATIONS: Edema. bilateral calf edema. --- [...] performed. The images were obtained using a Unblab E9 vascular ultrasound machine. --- VENOUS FLOW [...] --+ Electronically signed by: Ricardo Hall MD [id number]:[id number] Final Dictated: 07/20/2018 10:49 am Dictating Physician: RICARDO HALL Signed Date and Time: 07/19/2018 11:03 am Signed by: RICARDO HALL Normal [facility] Basic Metabolic Panelon 06-30 Calcium mass conc 7.9 mg/dL Low 8.4-10.4 [facility] Comment on above: Performed By: #### H EMDF, PT, BMP3M, PHOS3, MG3, CK3 #### [facility] [address], [place] #### VD25H #### [facility] [address] [place] [address] Glucose mass conc 113 mg/dL High 70-100 [facility] Comment on above: Performed By: #### H EMDF, PT, BMP3M, PHOS3, MG3, CK3 #### [place] [address] [facility], [place] #### VD25H #### [facility] [address] [place] [address] Anion gap molar conc 7 Normal [facility] Comment on above: Performed By: #### H EMDF, PT, BMP3M, PHOS3, MG3, CK3 #### [facility] [address] [facility], [place] #### VD25H #### [facility] [address] [place] [address] CO2 molar conc 31 mmol/L High 22-30 [facility] Comment on above: Performed By: #### H EMDF, PT, BMP3M, PHOS3, MG3, CK3 #### [place] [address] [facility], [place] #### VD25H #### [facility] [address] [place] [address] Creatinine mass conc 0.59 mg/dL Normal 0.52-1.25 [facility] Comment on above: Performed By: #### H EMDF, PT, BMP3M, PHOS3, MG3, CK3 #### [place] [address] [facility], [place] #### VD25H #### [facility] [address] [place] [address] GFR/1.73 sq M predicted among blacks MDRD vol rate/area (S/P/Bld) mL/min/{1.73_m2} Normal >60 [facility] Comment on above: Performed By: #### H EMDF, PT, BMP3M, PHOS3, MG3, CK3 #### [address] #### VD25H #### [facility] [address] [place] [address] GFR/1.73 sq M predicted among non-blacks MDRD vol rate/area (S/P/Bld) mL/min/{1.73_m2} Normal >60 [facility] Comment on above: Result Comment: Sour ce- MDRD equation with creatinine calibration to IDMS(NKDEP) eGFR not recommended for drug dose adjustment Performed By: #### H EMDF, PT, BMP3M, PHOS3, MG3, CK3 #### [address] #### VD25H #### [place] [address] [place] [address] Urea nitrogen mass conc 19 mg/dL Normal 7-20 [facility] Comment on above: Performed By: #### H EMDF, PT, BMP3M, PHOS3, MG3, CK3 #### [address] #### VD25H #### [facility] [address] [place] [address] Chloride molar conc 104 mmol/L Normal 98-107 [facility] Comment on above: Performed By: #### H EMDF, PT, BMP3M, PHOS3, MG3, CK3 #### [address] #### VD25H #### [facility] [address] [place] [address] Potassium molar conc 3.4 mmol/L Low 3.5-5.1 [facility] Comment on above: Performed By: #### H EMDF, PT, BMP3M, PHOS3, MG3, CK3 #### [facility] [address] [place] [address] #### VD25H #### [facility] [address] [place] [address] Sodium molar conc 142 mmol/L Normal 135-145 [facility] Comment on above: Performed By: #### H EMDF, PT, BMP3M, PHOS3, MG3, CK3 #### [facility] [address] [place] [address] #### VD25H #### [facility] [address] [place] [address] CR Abdomen APon 07-18-2018 CR Abdomen AP Patient Name: KATHYA HOOPER Diagnostic Radiology Exam Date/Time 07/18/2018 06:52:18 EDT Exam CR Abdomen AP Ordering Physician [id number] JOYA PERRY Accession Number [id number] CPT4 Codes 22372 () Reason For Exam ileus Report CLINICAL [...] Transcribed Date and Time: 07/18/2018 2:33 Normal [facility] CR Chest Portableon 07-19-19 19 CR Chest Portable Patient Name: KATHYA HOOPER Diagnostic Radiology Exam Date/Time 07/18/2018 06:52:50 EDT Exam CR Chest Portable Ordering Physician MARIA EUGENIA PEREZ Accession Number [id number] CPT4 Codes 03711 () Reason For Exam ETT placement Report [...] Transcribed Date and Time: 07/18/2018 2:32 Normal [facility] Hemogram w/ Autodiffon 07-18 Abs Baso Cnt 0.0 10*3/uL Normal 0.0-0.2 [facility] Comment on above: Performed By: #### H EMDF, PT, BMP3M, PHOS3, MG3, CK3 #### [facility] [address] [place] [address] #### VD25H #### [facility] [address] [place] [address] Abs Neutrophile Cnt 8.6 10*3/uL High 1.8-7.0 [facility] Comment on above: Performed By: #### H EMDF, PT, BMP3M, PHOS3, MG3, CK3 #### [facility] [address], [place] #### VD25H #### [facility] [address] [place] [address] Basophils/100 WBC (Bld) 0.4 % Normal 0.0-2.0 [facility] Comment on above: Performed By: #### H EMDF, PT, BMP3M, PHOS3, MG3, CK3 #### [place] [address] [place], [place] #### VD25H #### [facility] [address] [place] [address] Eosinophils #/vol (Bld) 0.2 10*3/uL Normal 0.0-0.5 [facility] Comment on above: Performed By: #### H EMDF, PT, BMP3M, PHOS3, MG3, CK3 #### [address] #### VD25H #### [facility] [address] [place] [address] Eosinophils/100 WBC (Bld) 2.1 % Normal 1.0-6.0 [facility] Comment on above: Performed By: #### H EMDF, PT, BMP3M, PHOS3, MG3, CK3 #### [address] #### VD25H #### [facility] [address] [place] [address] Erythrocyte distribution width Ratio (RBC) 13.4 % Normal 11.5-14.5 [facility] Comment on above: Performed By: #### H EMDF, PT, BMP3M, PHOS3, MG3, CK3 #### [address] #### VD25H #### [facility] [address] [place] [address] Granulocytes/100 WBC (Bld) 80.0 % Normal 40.0-80.0 [facility] Comment on above: Performed By: #### H EMDF, PT, BMP3M, PHOS3, MG3, CK3 #### [address] #### VD25H #### [facility] [address] [place] [address] Hematocrit Volume Fraction (Bld) 37.3 % Low 40.0-52.0 [facility] Comment on above: Performed By: #### H EMDF, PT, BMP3M, PHOS3, MG3, CK3 #### [address] #### VD25H #### [facility] [address] [place] [address] Hemoglobin mass conc (Bld) 12.6 g/dL Low 13.0-18.0 [facility] Comment on above: Performed By: #### H EMDF, PT, BMP3M, PHOS3, MG3, CK3 #### [address] #### VD25H #### [facility] [address] [place] [address] Lymphocytes #/vol (Bld) 1.1 10*3/uL Normal 1.0-4.3 [facility] Comment on above: Performed By: #### H EMDF, PT, BMP3M, PHOS3, MG3, CK3 #### [address] #### VD25H #### [facility] [address] [place] [address] Lymphocytes/100 WBC (Bld) 10.3 % Low 20.0-40.0 [facility] Comment on above: Performed By: #### H EMDF, PT, BMP3M, PHOS3, MG3, CK3 #### [address] #### VD25H #### [facility] [address] [place] [address] MCH Entitic mass (RBC) 29.4 pg Normal 26.0-34.0 [facility] Comment on above: Performed By: #### H EMDF, PT, BMP3M, PHOS3, MG3, CK3 #### [address] #### VD25H #### [facility] [address] [place] [address] MCHC mass conc (RBC) 33.9 % Normal 32.0-36.0 [facility] Comment on above: Performed By: #### H EMDF, PT, BMP3M, PHOS3, MG3, CK3 #### [address] [place], [place] #### VD25H #### [facility] [address] [place] [address] MCV Entitic volume (RBC) 86.8 fL Normal 80.0-98.0 [facility] Comment on above: Performed By: #### H EMDF, PT, BMP3M, PHOS3, MG3, CK3 #### [address] #### VD25H #### [facility] [address] [place] [address] Monocytes #/vol (Bld) 0.8 10*3/uL Normal 0.0-0.8 [facility] Comment on above: Performed By: #### H EMDF, PT, BMP3M, PHOS3, MG3, CK3 #### [address] #### VD25H #### [facility] [address] [place] [address] Monocytes/100 WBC (Bld) 7.2 % Normal 2.0-10.0 [facility] Comment on above: Performed By: #### H EMDF, PT, BMP3M, PHOS3, MG3, CK3 #### [address] #### VD25H #### [facility] [address] [place] [address] Platelet mean volume Entitic volume (Bld) 7.8 fL Normal 7.4-10.4 [facility] Comment on above: Performed By: #### H EMDF, PT, BMP3M, PHOS3, MG3, CK3 #### [place] [address] [place], [place] #### VD25H #### [facility] [address] [place] [address] Platelets #/vol (Bld) 301 10*3/uL Normal 140-440 [facility] Comment on above: Performed By: #### H EMDF, PT, BMP3M, PHOS3, MG3, CK3 #### [address] #### VD25H #### [facility] [address] [place] [address] RBC #/vol (Bld) 4.29 10*6/uL Low 4.40-5.90 [facility] Comment on above: Performed By: #### H EMDF, PT, BMP3M, PHOS3, MG3, CK3 #### [address] #### VD25H #### [facility] [address] [place] [address] WBC #/vol (Bld) 10.8 10*3/uL High 3.6-10.7 [facility] Comment on above: Performed By: #### H EMDF, PT, BMP3M, PHOS3, MG3, CK3 #### [address] #### VD25H #### [facility] [address] [place] [address] Arterial Blood Gaseson 07-17 CO2 molar conc 29.7 mmol/L High 23.0-27.0 [facility] Comment on above: Performed By: #### H EMDF, PT, BMP3M, PHOS3, MG3, CK3 #### [address] #### VD25H #### [facility] [address] [place] [address] HCO3 molar conc (Bld) 28.4 mmol/L High 21.0-25.0 [facility] Comment on above: Performed By: #### H EMDF, PT, BMP3M, PHOS3, MG3, CK3 #### [facility] [address] [place], [place] #### VD25H #### [facility] [address] [place] [address] Hemoglobin mass conc (Bld) 11.1 g/dL Normal ScreenOnly [facility] Comment on above: Performed By: #### H EMDF, PT, BMP3M, PHOS3, MG3, CK3 #### [address] #### VD25H #### [facility] [address] [place] [address] Oxygen ppres (Bld) 109.2 mm[Hg] High 80.0-100.0 [facility] Comment on above: Performed By: #### H EMDF, PT, BMP3M, PHOS3, MG3, CK3 #### [address] #### VD25H #### [facility] [address] [place] [address] Oxygen saturation in Blood 97.8 % Normal 95.0-100.0 [facility] Comment on above: Performed By: #### H EMDF, PT, BMP3M, PHOS3, MG3, CK3 #### [address] [place], [place] #### VD25H #### [facility] [address] [place] [address] pCO2 39.8 mm[Hg] Normal 35.0-45.0 [facility] Comment on above: Performed By: #### H EMDF, PT, BMP3M, PHOS3, MG3, CK3 #### [address] #### VD25H #### [facility] [address] [place] [address] pH (Bld) 7.472 High 7.350-7.450 [facility] Comment on above: Performed By: #### H EMDF, PT, BMP3M, PHOS3, MG3, CK3 #### [facility] [address] [place], [place] #### VD25H #### [facility] [address] [place] [address] Std Base Excess 4.5 mmol/L High -3.0-3.0 [facility] Comment on above: Performed By: #### H EMDF, PT, BMP3M, PHOS3, MG3, CK3 #### [place] [address] [place], [place] #### VD25H #### [facility] [address] [place] [address] FIO2 60% Normal [facility] Comment on above: Performed By: #### H EMDF, PT, BMP3M, PHOS3, MG3, CK3 #### [place] [address] [place], [place] #### VD25H #### [facility] [address] [place] [address] Basic Metabolic Panelon - Anion gap molar conc 6 Normal [facility] Comment on above: Performed By: #### H EMDF, PT, BMP3M, PHOS3, MG3, CK3 #### [place] [address] [place], [place] #### VD25H #### [facility] [address] [place] [address] Calcium mass conc 8.0 mg/dL Low 8.4-10.4 [facility] Comment on above: Performed By: #### H EMDF, PT, BMP3M, PHOS3, MG3, CK3 #### [place] [address] [place], [place] #### VD25H #### [facility] [address] [place] [address] CO2 molar conc 31 mmol/L High 22-30 [facility] Comment on above: Performed By: #### H EMDF, PT, BMP3M, PHOS3, MG3, CK3 #### [place] [address] [place], [place] #### VD25H #### [facility] [address] [place] [address] Glucose mass conc 107 mg/dL High 70-100 [facility] Comment on above: Performed By: #### H EMDF, PT, BMP3M, PHOS3, MG3, CK3 #### [place] [address] [place], [place] #### VD25H #### [facility] [address] [place] [address] Urea nitrogen mass conc 22 mg/dL High 7-20 [facility] Comment on above: Performed By: #### H EMDF, PT, BMP3M, PHOS3, MG3, CK3 #### [place] [address] [place], [place] #### VD25H #### [facility] [address] [place] [address] Creatinine mass conc 0.66 mg/dL Normal 0.52-1.25 [facility] Comment on above: Performed By: #### H EMDF, PT, BMP3M, PHOS3, MG3, CK3 #### [place] [address] [place], [place] #### VD25H #### [facility] [address] [place] [address] GFR/1.73 sq M predicted among blacks MDRD vol rate/area (S/P/Bld) mL/min/{1.73_m2} Normal >60 [facility] Comment on above: Performed By: #### H EMDF, PT, BMP3M, PHOS3, MG3, CK3 #### [place] [address] [place], [place] #### VD25H #### [facility] [address] [place] [address] GFR/1.73 sq M predicted among non-blacks MDRD vol rate/area (S/P/Bld) mL/min/{1.73_m2} Normal >60 [facility] Comment on above: Result Comment: Sour ce- MDRD equation with creatinine calibration to IDMS(NKDEP) eGFR not recommended for drug dose adjustment Performed By: #### H EMDF, PT, BMP3M, PHOS3, MG3, CK3 #### [facility] [address] [place], [place] #### VD25H #### [facility] [address] [place] [address] Chloride molar conc 105 mmol/L Normal 98-107 [facility] Comment on above: Performed By: #### H EMDF, PT, BMP3M, PHOS3, MG3, CK3 #### [address] #### VD25H #### [facility] [address] [place] [address] Potassium molar conc 3.9 mmol/L Normal 3.5-5.1 [facility] Comment on above: Performed By: #### H EMDF, PT, BMP3M, PHOS3, MG3, CK3 #### [facility] [address] [place], [place] #### VD25H #### [facility] [address] [place] [address] Sodium molar conc 142 mmol/L Normal 135-145 [facility] Comment on above: Performed By: #### H EMDF, PT, BMP3M, PHOS3, MG3, CK3 #### [facility] [address] [place], [place] #### VD25H #### [facility] [address] [place] [address] CR Abdomen APon 07-17-2018 CR Abdomen AP Patient Name: KATHYA HOOPER Diagnostic Radiology Exam Date/Time 07/17/2018 12:46:31 EDT Exam CR Abdomen AP Ordering Physician [id number] JoesphJOYA OCAMPO Accession Number [id number] CPT4 Codes 91738 () Reason For Exam ileus Report Abdomen: [...] Dictated: 07/17/2018 12:46 pm Dictating Physician: MD ELIZABETH, PETE Signed Date and Time: 07/17/2018 12:46 pm Signed by: MD JOHNSON RISA Transcribed Date and Time: 07/17/2018 12:46 [facility] CR Abdomen AP Patient Name: KATHYA HOOPER Diagnostic Radiology Exam Date/Time 07/17/2018 06:25:43 EDT Exam CR Abdomen AP Ordering Physician [id number] JoesphTERRENCE JOYA Accession Number [id number] CPT4 Codes 35693 () Reason For Exam ileus Report Abdomen: [...] Transcribed Date and Time: 07/17/2018 7:16 Normal [facility] CR Chest Portableon 07-18-19 19 CR Chest Portable Patient Name: KATHYA HOOPER Diagnostic Radiology Exam Date/Time 07/17/2018 18:08:41 EDT Exam CR Chest Portable Ordering Physician SALO DAVIS Accession Number [id number] CPT4 Codes 33116 () Reason For Exam picc Report CHEST [...] Transcribed Date and Time: 07/17/2018 7:24 Normal [facility] CR Chest Portable Patient Name: KATHYA HOOPER Diagnostic Radiology Exam Date/Time 07/17/2018 18:08:41 EDT Exam CR Chest Portable Ordering Physician SALO DAVIS Accession Number [id number] CPT4 Codes 33550 () Reason For Exam reheck line tip [...] Transcribed Date and Time: 07/17/2018 7:21 Normal [facility] CR Chest Portable Patient Name: KATHYA HOOPER Diagnostic Radiology Exam Date/Time 07/17/2018 06:26:06 EDT Exam CR Chest Portable Ordering Physician MARIA EUGENIA PEREZ Accession Number [id number] CPT4 Codes 62414 () Reason For Exam ETT placement Report [...] Transcribed Date and Time: 07/17/2018 7:17 Normal [facility] Hemogram w/ Autodiffon 07-17 Abs Baso Cnt 0.0 10*3/uL Normal 0.0-0.2 [facility] Comment on above: Performed By: #### H EMDF, PT, BMP3M, PHOS3, MG3, CK3 #### [address] [address] #### VD25 #### [facility] [address] [place] [address] Abs Neutrophile Cnt 8.1 10*3/uL High 1.8-7.0 [facility] Comment on above: Performed By: #### H EMDF, PT, BMP3M, PHOS3, MG3, CK3 #### [address] [place], [place] #### VD25H #### [facility] [address] [place] [address] Basophils/100 WBC (Bld) 0.4 % Normal 0.0-2.0 [facility] Comment on above: Performed By: #### H EMDF, PT, BMP3M, PHOS3, MG3, CK3 #### [address] #### VD25H #### [place] [address] [place] [address] Eosinophils #/vol (Bld) 0.1 10*3/uL Normal 0.0-0.5 [facility] Comment on above: Performed By: #### H EMDF, PT, BMP3M, PHOS3, MG3, CK3 #### [address] #### VD25H #### [place] [address] [place] [address] Eosinophils/100 WBC (Bld) 1.4 % Normal 1.0-6.0 [facility] Comment on above: Performed By: #### H EMDF, PT, BMP3M, PHOS3, MG3, CK3 #### [address] #### VD25H #### [facility] [address] [place] [address] Erythrocyte distribution width Ratio (RBC) 13.5 % Normal 11.5-14.5 [facility] Comment on above: Performed By: #### H EMDF, PT, BMP3M, PHOS3, MG3, CK3 #### [address] #### VD25H #### [facility] [address] [place] [address] Granulocytes/100 WBC (Bld) 78.6 % Normal 40.0-80.0 [facility] Comment on above: Performed By: #### H EMDF, PT, BMP3M, PHOS3, MG3, CK3 #### [address] #### VD25H #### [facility] [address] [place] [address] Hematocrit Volume Fraction (Bld) 31.3 % Low 40.0-52.0 [facility] Comment on above: Performed By: #### H EMDF, PT, BMP3M, PHOS3, MG3, CK3 #### [address] #### VD25H #### [facility] [address] [place] [address] Hemoglobin mass conc (Bld) 10.4 g/dL Low 13.0-18.0 [facility] Comment on above: Performed By: #### H EMDF, PT, BMP3M, PHOS3, MG3, CK3 #### [place] [address] [place], [place] #### VD25H #### [facility] [address] [place] [address] Lymphocytes #/vol (Bld) 1.0 10*3/uL Normal 1.0-4.3 [facility] Comment on above: Performed By: #### H EMDF, PT, BMP3M, PHOS3, MG3, CK3 #### [address] #### VD25H #### [facility] [address] [place] [address] Lymphocytes/100 WBC (Bld) 10.0 % Low 20.0-40.0 [facility] Comment on above: Performed By: #### H EMDF, PT, BMP3M, PHOS3, MG3, CK3 #### [address] [place], [place] #### VD25H #### [facility] [address] [place] [address] MCH Entitic mass (RBC) 29.3 pg Normal 26.0-34.0 [facility] Comment on above: Performed By: #### H EMDF, PT, BMP3M, PHOS3, MG3, CK3 #### [place] [address] [address] [place], [place] #### VD25H #### [facility] [address] [place] [address] MCHC mass conc (RBC) 33.3 % Normal 32.0-36.0 [facility] Comment on above: Performed By: #### H EMDF, PT, BMP3M, PHOS3, MG3, CK3 #### [address] #### VD25H #### [place] [address] [place] [address] MCV Entitic volume (RBC) 87.9 fL Normal 80.0-98.0 [facility] Comment on above: Performed By: #### H EMDF, PT, BMP3M, PHOS3, MG3, CK3 #### [address] #### VD25H #### [facility] [address] [place] [address] Monocytes #/vol (Bld) 1.0 10*3/uL High 0.0-0.8 [facility] Comment on above: Performed By: #### H EMDF, PT, BMP3M, PHOS3, MG3, CK3 #### [address] #### VD25H #### [facility] [address] [place] [address] Monocytes/100 WBC (Bld) 9.6 % Normal 2.0-10.0 [facility] Comment on above: Performed By: #### H EMDF, PT, BMP3M, PHOS3, MG3, CK3 #### [address] #### VD25H #### [facility] [address] [place] [address] Platelet mean volume Entitic volume (Bld) 7.6 fL Normal 7.4-10.4 [facility] Comment on above: Performed By: #### H EMDF, PT, BMP3M, PHOS3, MG3, CK3 #### [address] [place], [place] #### VD25H #### [facility] [address] [place] [address] Platelets #/vol (Bld) 307 10*3/uL Normal 140-440 [facility] Comment on above: Performed By: #### H EMDF, PT, BMP3M, PHOS3, MG3, CK3 #### [address] #### VD25H #### [place] [address] [place] [address] RBC #/vol (Bld) 3.56 10*6/uL Low 4.40-5.90 [facility] Comment on above: Performed By: #### H EMDF, PT, BMP3M, PHOS3, MG3, CK3 #### [address] #### VD25H #### [place] [address] [place] [address] WBC #/vol (Bld) 10.2 10*3/uL Normal 3.6-10.7 [facility] Comment on above: Performed By: #### H EMDF, PT, BMP3M, PHOS3, MG3, CK3 #### [address] #### VD25H #### [place] [address] [place] [address] Basic Metabolic Panelon - Calcium mass conc 8.1 mg/dL Low 8.4-10.4 [facility] Comment on above: Performed By: #### H EMDF, PT, BMP3M, PHOS3, MG3, CK3 #### [facility] [address] [place], [place] #### VD25H #### [facility] [address] [place] [address] Anion gap molar conc 5 Normal [facility] Comment on above: Performed By: #### H EMDF, PT, BMP3M, PHOS3, MG3, CK3 #### [place] [address] [address] [place], [place] #### VD25H #### [facility] [address] [place] [address] CO2 molar conc 32 mmol/L High 22-30 [facility] Comment on above: Performed By: #### H EMDF, PT, BMP3M, PHOS3, MG3, CK3 #### [place] [address] [place] #### VD25H #### [facility] [address] [place] [address] Creatinine mass conc 0.62 mg/dL Normal 0.52-1.25 [facility] Comment on above: Performed By: #### H EMDF, PT, BMP3M, PHOS3, MG3, CK3 #### [place] [address] [place] #### VD25H #### [facility] [address] [place] [address] GFR/1.73 sq M predicted among blacks MDRD vol rate/area (S/P/Bld) mL/min/{1.73_m2} Normal >60 [facility] Comment on above: Performed By: #### H EMDF, PT, BMP3M, PHOS3, MG3, CK3 #### [place] [address] [address] [place], [place] #### VD25H #### [facility] [address] [place] [address] GFR/1.73 sq M predicted among non-blacks MDRD vol rate/area (S/P/Bld) mL/min/{1.73_m2} Normal >60 [facility] Comment on above: Result Comment: Sour ce- MDRD equation with creatinine calibration to IDMS(NKDEP) eGFR not recommended for drug dose adjustment Performed By: #### H EMDF, PT, BMP3M, PHOS3, MG3, CK3 #### [facility] [address] [place], [place] #### VD25H #### [facility] [address] [place] [address] Glucose mass conc 103 mg/dL High 70-100 [facility] Comment on above: Performed By: #### H EMDF, PT, BMP3M, PHOS3, MG3, CK3 #### [address] #### VD25H #### [facility] [address] [place] [address] Urea nitrogen mass conc 20 mg/dL Normal 7-20 [facility] Comment on above: Performed By: #### H EMDF, PT, BMP3M, PHOS3, MG3, CK3 #### [place] [address] [facility], [place] #### VD25H #### [facility] [address] [place] [address] Chloride molar conc 107 mmol/L Normal 98-107 [facility] Comment on above: Performed By: #### H EMDF, PT, BMP3M, PHOS3, MG3, CK3 #### [address], [place] #### VD25H #### [facility] [address] [place] [address] Potassium molar conc 3.7 mmol/L Normal 3.5-5.1 [facility] Comment on above: Performed By: #### H EMDF, PT, BMP3M, PHOS3, MG3, CK3 #### [place] [address] [place] #### VD25H #### [facility] [address] [place] [address] Sodium molar conc 145 mmol/L Normal 135-145 [facility] Comment on above: Performed By: #### H EMDF, PT, BMP3M, PHOS3, MG3, CK3 #### [facility] [address] [place] [address] #### VD25H #### [facility] [address] [place] [address] CR Abdomen APon 07-16-2018 CR Abdomen AP Patient Name: KATHYA HOOPER Diagnostic Radiology Exam Date/Time 07/16/2018 08:00:58 EDT Exam CR Abdomen AP Ordering Physician [id number] JOYA PERRY Accession Number [id number] CPT4 Codes 00428 () Reason For Exam ileus Report KUB [...] Transcribed Date and Time: 07/16/2018 10:03 Normal [facility] CR Chest Portableon 07-17-19 19 CR Chest Portable Patient Name: KATHYA HOOPER Diagnostic Radiology Exam Date/Time 07/16/2018 06:19:28 EDT Exam CR Chest Portable Ordering Physician MARIA EUGENIA PEREZ Accession Number [id number] CPT4 Codes 93275 () Reason For Exam ETT placement Report [...] Transcribed Date and Time: 07/16/2018 10:10 Normal [facility] Hemogram w/ Autodiffon 07-16 Abs Baso Cnt 0.0 10*3/uL Normal 0.0-0.2 [facility] Comment on above: Performed By: #### H EMDF, PT, BMP3M, PHOS3, MG3, CK3 #### [facility] [address] [place] [address] #### VD25H #### [facility] [address] [place] [address] Abs Neutrophile Cnt 8.7 10*3/uL High 1.8-7.0 [facility] Comment on above: Performed By: #### H EMDF, PT, BMP3M, PHOS3, MG3, CK3 #### [facility] [address] [place] [address] #### VD25H #### [facility] [address] [place] [address] Basophils/100 WBC (Bld) 0.2 % Normal 0.0-2.0 [facility] Comment on above: Performed By: #### H EMDF, PT, BMP3M, PHOS3, MG3, CK3 #### [address] [place], [place] #### VD25H #### [facility] [address] [place] [address] Eosinophils #/vol (Bld) 0.1 10*3/uL Normal 0.0-0.5 [facility] Comment on above: Performed By: #### H EMDF, PT, BMP3M, PHOS3, MG3, CK3 #### [address] [place], [place] #### VD25H #### [facility] [address] [place] [address] Eosinophils/100 WBC (Bld) 0.7 % Low 1.0-6.0 [facility] Comment on above: Performed By: #### H EMDF, PT, BMP3M, PHOS3, MG3, CK3 #### [address] #### VD25H #### [facility] [address] [place] [address] Erythrocyte distribution width Ratio (RBC) 13.7 % Normal 11.5-14.5 [facility] Comment on above: Performed By: #### H EMDF, PT, BMP3M, PHOS3, MG3, CK3 #### [address] #### VD25H #### [facility] [address] [place] [address] Granulocytes/100 WBC (Bld) 83.0 % High 40.0-80.0 [facility] Comment on above: Performed By: #### H EMDF, PT, BMP3M, PHOS3, MG3, CK3 #### [address] #### VD25H #### [facility] [address] [place] [address] Hematocrit Volume Fraction (Bld) 30.3 % Low 40.0-52.0 [facility] Comment on above: Performed By: #### H EMDF, PT, BMP3M, PHOS3, MG3, CK3 #### [place] [address] [address] [place], [place] #### VD25H #### [facility] [address] [place] [address] Hemoglobin mass conc (Bld) 10.5 g/dL Low 13.0-18.0 [facility] Comment on above: Performed By: #### H EMDF, PT, BMP3M, PHOS3, MG3, CK3 #### [place] [address] [place], [place] #### VD25H #### [facility] [address] [place] [address] Lymphocytes #/vol (Bld) 0.7 10*3/uL Low 1.0-4.3 [facility] Comment on above: Performed By: #### H EMDF, PT, BMP3M, PHOS3, MG3, CK3 #### [address] #### VD25H #### [facility] [address] [place] [address] Lymphocytes/100 WBC (Bld) 6.7 % Low 20.0-40.0 [facility] Comment on above: Performed By: #### H EMDF, PT, BMP3M, PHOS3, MG3, CK3 #### [address] #### VD25H #### [facility] [address] [place] [address] MCH Entitic mass (RBC) 30.2 pg Normal 26.0-34.0 [facility] Comment on above: Performed By: #### H EMDF, PT, BMP3M, PHOS3, MG3, CK3 #### [address] #### VD25H #### [facility] [address] [place] [address] MCHC mass conc (RBC) 34.6 % Normal 32.0-36.0 [facility] Comment on above: Performed By: #### H EMDF, PT, BMP3M, PHOS3, MG3, CK3 #### [address] #### VD25H #### [facility] [address] [place] [address] MCV Entitic volume (RBC) 87.3 fL Normal 80.0-98.0 [facility] Comment on above: Performed By: #### H EMDF, PT, BMP3M, PHOS3, MG3, CK3 #### [address] #### VD25H #### [place] [address] [place] [address] Monocytes #/vol (Bld) 1.0 10*3/uL High 0.0-0.8 [facility] Comment on above: Performed By: #### H EMDF, PT, BMP3M, PHOS3, MG3, CK3 #### [address] #### VD25H #### [facility] [address] [place] [address] Monocytes/100 WBC (Bld) 9.4 % Normal 2.0-10.0 [facility] Comment on above: Performed By: #### H EMDF, PT, BMP3M, PHOS3, MG3, CK3 #### [address] #### VD25H #### [facility] [address] [place] [address] Platelet mean volume Entitic volume (Bld) 6.9 fL Low 7.4-10.4 [facility] Comment on above: Performed By: #### H EMDF, PT, BMP3M, PHOS3, MG3, CK3 #### [address] #### VD25H #### [facility] [address] [place] [address] Platelets #/vol (Bld) 254 10*3/uL Normal 140-440 [facility] Comment on above: Performed By: #### H EMDF, PT, BMP3M, PHOS3, MG3, CK3 #### [facility] [address] [place], [place] #### VD25H #### [facility] [address] [place] [address] RBC #/vol (Bld) 3.47 10*6/uL Low 4.40-5.90 [facility] Comment on above: Performed By: #### H EMDF, PT, BMP3M, PHOS3, MG3, CK3 #### [address] #### VD25H #### [facility] [address] [place] [address] WBC #/vol (Bld) 10.5 10*3/uL Normal 3.6-10.7 [facility] Comment on above: Performed By: #### H EMDF, PT, BMP3M, PHOS3, MG3, CK3 #### [address] #### VD25H #### [facility] [address] [place] [address] Arterial Blood Gaseson 07-15 CO2 molar conc 26.7 mmol/L Normal 23.0-27.0 [facility] Comment on above: Performed By: #### H EMDF, PT, BMP3M, PHOS3, MG3, CK3 #### [address] #### VD25H #### [facility] [address] [place] [place] [address] FIO2 50% Normal [facility] Comment on above: Performed By: #### H EMDF, PT, BMP3M, PHOS3, MG3, CK3 #### [address] #### VD25H #### [place] [address] [place] [address] HCO3 molar conc (Bld) 25.7 mmol/L High 21.0-25.0 [facility] Comment on above: Performed By: #### H EMDF, PT, BMP3M, PHOS3, MG3, CK3 #### [address] #### VD25H #### [facility] [address] [place] [address] Hemoglobin mass conc (Bld) 12.5 g/dL Normal ScreenOnly [facility] Comment on above: Performed By: #### H EMDF, PT, BMP3M, PHOS3, MG3, CK3 #### [address] #### VD25H #### [place] [address] [place] [address] Oxygen ppres (Bld) 90.4 mm[Hg] Normal 80.0-100.0 [facility] Comment on above: Performed By: #### H EMDF, PT, BMP3M, PHOS3, MG3, CK3 #### [address] #### VD25H #### [place] [address] [place] [address] Oxygen saturation in Blood 96.8 % Normal 95.0-100.0 [facility] Comment on above: Performed By: #### H EMDF, PT, BMP3M, PHOS3, MG3, CK3 #### [address] #### VD25H #### [facility] [address] [place] [address] pCO2 33.4 mm[Hg] Low 35.0-45.0 [facility] Comment on above: Performed By: #### H EMDF, PT, BMP3M, PHOS3, MG3, CK3 #### [address] #### VD25H #### [facility] [address] [place] [address] pH (Bld) 7.504 High 7.350-7.450 [facility] Comment on above: Performed By: #### H EMDF, PT, BMP3M, PHOS3, MG3, CK3 #### [place] [address] [place], [place] #### VD25H #### [facility] [address] [place] [address] Std Base Excess 2.9 mmol/L Normal -3.0-3.0 [facility] Comment on above: Performed By: #### H EMDF, PT, BMP3M, PHOS3, MG3, CK3 #### [place] [address] [place], [place] #### VD25H #### [place] [address] [place] [address] Basic Metabolic Panelon 06-29 Anion gap molar conc 8 Normal [facility] Comment on above: Performed By: #### H EMDF, PT, BMP3M, PHOS3, MG3, CK3 #### [place] [address] [place], [place] #### VD25H #### [place] [address] [place] [address] Calcium mass conc 8.6 mg/dL Normal 8.4-10.4 [facility] Comment on above: Performed By: #### H EMDF, PT, BMP3M, PHOS3, MG3, CK3 #### [place] [place], [place] #### VD25H #### [facility] [address] [place] [address] CO2 molar conc 29 mmol/L Normal 22-30 [facility] Comment on above: Performed By: #### H EMDF, PT, BMP3M, PHOS3, MG3, CK3 #### [place] [address] [place], [place] #### VD25H #### [place] [address] [place] [address] Glucose mass conc 119 mg/dL High 70-100 [facility] Comment on above: Performed By: #### H EMDF, PT, BMP3M, PHOS3, MG3, CK3 #### [facility] [address] [place] [address] #### VD25H #### [facility] [address] [place] [address] Urea nitrogen mass conc 23 mg/dL High 7-20 [facility] Comment on above: Performed By: #### H EMDF, PT, BMP3M, PHOS3, MG3, CK3 #### [address] [address] #### VD25H #### [facility] [address] [place] [address] Creatinine mass conc 0.73 mg/dL Normal 0.52-1.25 [facility] Comment on above: Performed By: #### H EMDF, PT, BMP3M, PHOS3, MG3, CK3 #### [address] [address] #### VD25H #### [facility] [address] [place] [address] GFR/1.73 sq M predicted among blacks MDRD vol rate/area (S/P/Bld) mL/min/{1.73_m2} Normal >60 [facility] Comment on above: Performed By: #### H EMDF, PT, BMP3M, PHOS3, MG3, CK3 #### [address] [address] #### VD25H #### [facility] [address] [place] [address] GFR/1.73 sq M predicted among non-blacks MDRD vol rate/area (S/P/Bld) mL/min/{1.73_m2} Normal >60 [facility] Comment on above: Result Comment: Sour ce- MDRD equation with creatinine calibration to IDMS(NKDEP) eGFR not recommended for drug dose adjustment Performed By: #### H EMDF, PT, BMP3M, PHOS3, MG3, CK3 #### [facility] [address] [place] [place] [address] #### VD25H #### [facility] [address] [place] [address] Potassium molar conc 4.1 mmol/L Normal 3.5-5.1 [facility] Comment on above: Performed By: #### H EMDF, PT, BMP3M, PHOS3, MG3, CK3 #### [facility] [address] [place] [place] [address] #### VD25H #### [facility] [address] [place] [address] Sodium molar conc 144 mmol/L Normal 135-145 [facility] Comment on above: Performed By: #### H EMDF, PT, BMP3M, PHOS3, MG3, CK3 #### [facility] [address] [place] [place] [address] #### VD25H #### [facility] [address] [place] [address] Chloride molar conc 107 mmol/L Normal 98-107 [facility] Comment on above: Performed By: #### H EMDF, PT, BMP3M, PHOS3, MG3, CK3 #### [facility] [address] [place] [place] [address] #### VD25H #### [facility] [address] [place] [address] CR Abdomen APon 07-15-2018 CR Abdomen AP Patient Name: KATHYA HOOPER Diagnostic Radiology Exam Date/Time 07/15/2018 09:25:44 EDT Exam CR Abdomen AP Ordering Physician JOYA ROJAS Accession Number [id number] CPT4 Codes 29251 () Reason For Exam ileus Report EXAMINATION: [...] Transcribed Date and Time: 07/15/2018 10:07 Normal [facility] CR Chest Portableon 07-16-19 19 CR Chest Portable Patient Name: KATHYA HOOPER Diagnostic Radiology Exam Date/Time 07/15/2018 06:00:00 EDT Exam CR Chest Portable Ordering Physician MARIA EUGENIA PEREZ Accession Number [id number] CPT4 Codes 60085 () Reason For Exam ETT placement Report [...] Transcribed Date and Time: 07/15/2018 9:14 Normal [facility] CULT./ST. RESPIRATORYon 06-29 CULT./ST. RESPIRATORY CULT./ST. [...] in clusters. Rare gram negative bacilli. Normal [facility] Comment on above: Order Comment: Speci men Source Comment:Sputum, Suctioned Performed By: #### H EMDF, PT, BMP3M, PHOS3, MG3, CK3 #### [facility] [address] [place], [place] #### VD25H #### [facility] [address] [place] [address] Hemogram w/ Autodiffon 07-15 Abs Baso Cnt 0.0 10*3/uL Normal 0.0-0.2 [facility] Comment on above: Performed By: #### H EMDF, PT, BMP3M, PHOS3, MG3, CK3 #### [facility] [address] [place], [place] #### VD25H #### [facility] [address] [place] [address] Abs Neutrophile Cnt 13.2 10*3/uL High 1.8-7.0 [facility] Comment on above: Performed By: #### H EMDF, PT, BMP3M, PHOS3, MG3, CK3 #### [address] #### VD25H #### [facility] [address] [place] [address] Basophils/100 WBC (Bld) 0.2 % Normal 0.0-2.0 [facility] Comment on above: Performed By: #### H EMDF, PT, BMP3M, PHOS3, MG3, CK3 #### [address] #### VD25H #### [facility] [address] [place] [address] Eosinophils #/vol (Bld) 0.0 10*3/uL Normal 0.0-0.5 [facility] Comment on above: Performed By: #### H EMDF, PT, BMP3M, PHOS3, MG3, CK3 #### [facility] [address] [place], [place] #### VD25H #### [facility] [address] [place] [address] Eosinophils/100 WBC (Bld) 0.1 % Low 1.0-6.0 [facility] Comment on above: Performed By: #### H EMDF, PT, BMP3M, PHOS3, MG3, CK3 #### [address] #### VD25H #### [facility] [address] [place] [address] Erythrocyte distribution width Ratio (RBC) 13.9 % Normal 11.5-14.5 [facility] Comment on above: Performed By: #### H EMDF, PT, BMP3M, PHOS3, MG3, CK3 #### [address] #### VD25H #### [facility] [address] [place] [address] Granulocytes/100 WBC (Bld) 88.1 % High 40.0-80.0 [facility] Comment on above: Performed By: #### H EMDF, PT, BMP3M, PHOS3, MG3, CK3 #### [address] #### VD25H #### [facility] [address] [place] [address] Hematocrit Volume Fraction (Bld) 35.3 % Low 40.0-52.0 [facility] Comment on above: Performed By: #### H EMDF, PT, BMP3M, PHOS3, MG3, CK3 #### [address] #### VD25H #### [facility] [address] [place] [address] Hemoglobin mass conc (Bld) 11.9 g/dL Low 13.0-18.0 [facility] Comment on above: Performed By: #### H EMDF, PT, BMP3M, PHOS3, MG3, CK3 #### [address] [place], [place] #### VD25H #### [facility] [address] [place] [address] Lymphocytes #/vol (Bld) 0.8 10*3/uL Low 1.0-4.3 [facility] Comment on above: Performed By: #### H EMDF, PT, BMP3M, PHOS3, MG3, CK3 #### [address] #### VD25H #### [facility] [address] [place] [address] Lymphocytes/100 WBC (Bld) 5.0 % Low 20.0-40.0 [facility] Comment on above: Performed By: #### H EMDF, PT, BMP3M, PHOS3, MG3, CK3 #### [address] #### VD25H #### [facility] [address] [place] [address] MCH Entitic mass (RBC) 29.5 pg Normal 26.0-34.0 [facility] Comment on above: Performed By: #### H EMDF, PT, BMP3M, PHOS3, MG3, CK3 #### [address] [place], [place] #### VD25H #### [facility] [address] [facility] [place] [address] MCHC mass conc (RBC) 33.8 % Normal 32.0-36.0 [facility] Comment on above: Performed By: #### H EMDF, PT, BMP3M, PHOS3, MG3, CK3 #### [address] #### VD25H #### [facility] [address] [place] [address] MCV Entitic volume (RBC) 87.2 fL Normal 80.0-98.0 [facility] Comment on above: Performed By: #### H EMDF, PT, BMP3M, PHOS3, MG3, CK3 #### [facility] [address] [place], [place] #### VD25H #### [facility] [address] [place] [address] Monocytes #/vol (Bld) 1.0 10*3/uL High 0.0-0.8 [facility] Comment on above: Performed By: #### H EMDF, PT, BMP3M, PHOS3, MG3, CK3 #### [address] #### VD25H #### [facility] [address] [place] [address] Monocytes/100 WBC (Bld) 6.6 % Normal 2.0-10.0 [facility] Comment on above: Performed By: #### H EMDF, PT, BMP3M, PHOS3, MG3, CK3 #### [address] #### VD25H #### [facility] [address] [place] [address] Platelet mean volume Entitic volume (Bld) 7.9 fL Normal 7.4-10.4 [facility] Comment on above: Performed By: #### H EMDF, PT, BMP3M, PHOS3, MG3, CK3 #### [address] #### VD25H #### [facility] [address] [place] [address] Platelets #/vol (Bld) 319 10*3/uL Normal 140-440 [facility] Comment on above: Performed By: #### H EMDF, PT, BMP3M, PHOS3, MG3, CK3 #### [address] #### VD25H #### [facility] [address] [place] [address] RBC #/vol (Bld) 4.05 10*6/uL Low 4.40-5.90 [facility] Comment on above: Performed By: #### H EMDF, PT, BMP3M, PHOS3, MG3, CK3 #### [address] [place], [place] #### VD25H #### [facility] [address] [place] [address] WBC #/vol (Bld) 15.0 10*3/uL High 3.6-10.7 [facility] Comment on above: Performed By: #### H EMDF, PT, BMP3M, PHOS3, MG3, CK3 #### [address] #### VD25H #### [address] [place] [address] Basic Metabolic Panelon 06-29 Anion gap molar conc 9 Normal [facility] Comment on above: Performed By: #### H EMDF, PT, BMP3M, PHOS3, MG3, CK3 #### [address] #### VD25H #### [address] [place] [address] Calcium mass conc 7.6 mg/dL Low 8.4-10.4 [facility] Comment on above: Performed By: #### H EMDF, PT, BMP3M, PHOS3, MG3, CK3 #### [address] #### VD25H #### [facility] [address] [place] [address] CO2 molar conc 26 mmol/L Normal 22-30 [facility] Comment on above: Performed By: #### H EMDF, PT, BMP3M, PHOS3, MG3, CK3 #### [address] [address] [place], [place] #### VD25H #### [facility] [address] [place] [address] Glucose mass conc 148 mg/dL High 70-100 [facility] Comment on above: Performed By: #### H EMDF, PT, BMP3M, PHOS3, MG3, CK3 #### [address] #### VD25H #### [facility] [address] [place] [address] Urea nitrogen mass conc 16 mg/dL Normal 7-20 [facility] Comment on above: Performed By: #### H EMDF, PT, BMP3M, PHOS3, MG3, CK3 #### [address] #### VD25H #### [address] [place] [address] Creatinine mass conc 0.62 mg/dL Normal 0.52-1.25 [facility] Comment on above: Performed By: #### H EMDF, PT, BMP3M, PHOS3, MG3, CK3 #### [address] #### VD25H #### [address] [place] [address] GFR/1.73 sq M predicted among blacks MDRD vol rate/area (S/P/Bld) mL/min/{1.73_m2} Normal >60 [facility] Comment on above: Performed By: #### H EMDF, PT, BMP3M, PHOS3, MG3, CK3 #### [address] #### VD25H #### [address] [place] [address] GFR/1.73 sq M predicted among non-blacks MDRD vol rate/area (S/P/Bld) mL/min/{1.73_m2} Normal >60 [facility] Comment on above: Result Comment: Sour ce- MDRD equation with creatinine calibration to IDMS(NKDEP) eGFR not recommended for drug dose adjustment Performed By: #### H EMDF, PT, BMP3M, PHOS3, MG3, CK3 #### [facility] [address] [place] [address] #### VD25H #### [facility] [address] [place] [address] Potassium molar conc 4.5 mmol/L Normal 3.5-5.1 [facility] Comment on above: Performed By: #### H EMDF, PT, BMP3M, PHOS3, MG3, CK3 #### [facility] [address] [place] [address] #### VD25H #### [facility] [address] [place] [address] Sodium molar conc 137 mmol/L Normal 135-145 [facility] Comment on above: Performed By: #### H EMDF, PT, BMP3M, PHOS3, MG3, CK3 #### [facility] [address] [place] [place] [address] #### VD25H #### [facility] [address] [place] [address] Chloride molar conc 103 mmol/L Normal 98-107 [facility] Comment on above: Performed By: #### H EMDF, PT, BMP3M, PHOS3, MG3, CK3 #### [facility] [address] [place] [address] #### VD25H #### [facility] [address] [place] [address] CR Abdomen APon 07-14-2018 CR Abdomen AP Patient Name: KATHYA HOOPER Diagnostic Radiology Exam Date/Time 07/14/2018 19:15:43 EDT Exam CR Abdomen AP Ordering Physician [id number] AGUILERA Accession Number [id number] CPT4 Codes 61404 () Reason For Exam Distended with emesis [...] Transcribed Date and Time: 07/14/2018 7:28 Normal [facility] CR Chest Portableon 07-15-19 19 CR Chest Portable Patient Name: KATHYA HOOPER Diagnostic Radiology Exam Date/Time 07/14/2018 06:53:29 EDT Exam CR Chest Portable Ordering Physician MARIA EUGENIA PEREZ Accession Number [id number] CPT4 Codes 79177 () Reason For Exam ETT placement Report [...] Transcribed Date and Time: 07/14/2018 11:51 Normal [facility] Hemogram w/ Autodiffon 07-14 Abs Baso Cnt 0.0 10*3/uL Normal 0.0-0.2 [facility] Comment on above: Performed By: #### H EMDF, PT, BMP3M, PHOS3, MG3, CK3 #### [address] #### VD25H #### [facility] [address] [place] [address] Abs Neutrophile Cnt 11.7 10*3/uL High 1.8-7.0 [facility] Comment on above: Performed By: #### H EMDF, PT, BMP3M, PHOS3, MG3, CK3 #### [address] #### VD25H #### [facility] [address] [place] [address] Basophils/100 WBC (Bld) 0.3 % Normal 0.0-2.0 [facility] Comment on above: Performed By: #### H EMDF, PT, BMP3M, PHOS3, MG3, CK3 #### [address] #### VD25H #### [facility] [address] [place] [address] Eosinophils #/vol (Bld) 0.0 10*3/uL Normal 0.0-0.5 [facility] Comment on above: Performed By: #### H EMDF, PT, BMP3M, PHOS3, MG3, CK3 #### [address] #### VD25H #### [facility] [address] [place] [address] Eosinophils/100 WBC (Bld) 0.1 % Low 1.0-6.0 [facility] Comment on above: Performed By: #### H EMDF, PT, BMP3M, PHOS3, MG3, CK3 #### [address] #### VD25H #### [facility] [address] [place] [address] Erythrocyte distribution width Ratio (RBC) 13.8 % Normal 11.5-14.5 [facility] Comment on above: Performed By: #### H EMDF, PT, BMP3M, PHOS3, MG3, CK3 #### [facility] [address] [place] #### VD25H #### [facility] [address] [place] [address] Granulocytes/100 WBC (Bld) 89.1 % High 40.0-80.0 [facility] Comment on above: Performed By: #### H EMDF, PT, BMP3M, PHOS3, MG3, CK3 #### [address] [address] [place], [place] #### VD25H #### [facility] [address] [place] [address] Hematocrit Volume Fraction (Bld) 33.8 % Low 40.0-52.0 [facility] Comment on above: Performed By: #### H EMDF, PT, BMP3M, PHOS3, MG3, CK3 #### [address] #### VD25H #### [facility] [address] [place] [address] Hemoglobin mass conc (Bld) 11.5 g/dL Low 13.0-18.0 [facility] Comment on above: Performed By: #### H EMDF, PT, BMP3M, PHOS3, MG3, CK3 #### [address] [place], [place] #### VD25H #### [facility] [address] [place] [address] Lymphocytes #/vol (Bld) 0.6 10*3/uL Low 1.0-4.3 [facility] Comment on above: Performed By: #### H EMDF, PT, BMP3M, PHOS3, MG3, CK3 #### [address] [address] [place] #### VD25H #### [facility] [address] [place] [place] [address] Lymphocytes/100 WBC (Bld) 4.5 % Low 20.0-40.0 [facility] Comment on above: Performed By: #### H EMDF, PT, BMP3M, PHOS3, MG3, CK3 #### [address] #### VD25H #### [facility] [address] [place] [address] MCH Entitic mass (RBC) 29.6 pg Normal 26.0-34.0 [facility] Comment on above: Performed By: #### H EMDF, PT, BMP3M, PHOS3, MG3, CK3 #### [address] #### VD25H #### [address] [place] [address] MCHC mass conc (RBC) 33.9 % Normal 32.0-36.0 [facility] Comment on above: Performed By: #### H EMDF, PT, BMP3M, PHOS3, MG3, CK3 #### [address] #### VD25H #### [facility] [address] [facility] [address] MCV Entitic volume (RBC) 87.3 fL Normal 80.0-98.0 [facility] Comment on above: Performed By: #### H EMDF, PT, BMP3M, PHOS3, MG3, CK3 #### [address] #### VD25H #### [facility] [address] [facility] [place] [address] Monocytes #/vol (Bld) 0.8 10*3/uL Normal 0.0-0.8 [facility] Comment on above: Performed By: #### H EMDF, PT, BMP3M, PHOS3, MG3, CK3 #### [address] #### VD25H #### [facility] [address] [place] [address] Monocytes/100 WBC (Bld) 6.0 % Normal 2.0-10.0 [facility] Comment on above: Performed By: #### H EMDF, PT, BMP3M, PHOS3, MG3, CK3 #### [address] [address] [place], [place] #### VD25H #### [facility] [address] [place] [address] Platelet mean volume Entitic volume (Bld) 8.1 fL Normal 7.4-10.[address] [facility] Comment on above: Performed By: #### H EMDF, PT, BMP3M, PHOS3, MG3, CK3 #### [address] #### VD25H #### [address] [place] [address] Platelets #/vol (Bld) 196 10*3/uL Normal 140-440 [facility] Comment on above: Performed By: #### H EMDF, PT, BMP3M, PHOS3, MG3, CK3 #### [address] #### VD25H #### [address] [place] [address] RBC #/vol (Bld) 3.87 10*6/uL Low 4.40-5.90 [facility] Comment on above: Performed By: #### H EMDF, PT, BMP3M, PHOS3, MG3, CK3 #### [address] #### VD25H #### [facility] [address] [place] [address] WBC #/vol (Bld) 13.2 10*3/uL High 3.6-10.[address] [facility] Comment on above: Performed By: #### H EMDF, PT, BMP3M, PHOS3, MG3, CK3 #### [facility] [address] [place], [place] #### VD25H #### [facility] [address] [place] [address] Add on test from HISon 07-13 Add on test from HIS Rejected Normal [facility] Comment on above: Result Comment: No s pecimen available for addon. Performed By: #### H EMDF, PT, BMP3M, PHOS3, MG3, CK3 #### [address] [place], [place] #### VD25H #### [facility] [address] [place] [address] Arterial Blood Gaseson 07-13 CO2 molar conc 25.6 mmol/L Normal 23.0-27.0 [facility] Comment on above: Performed By: #### H EMDF, PT, BMP3M, PHOS3, MG3, CK3 #### [address] [place] #### VD25H #### [facility] [address] [place] [address] HCO3 molar conc (Bld) 24.5 mmol/L Normal 21.0-25.0 [facility] Comment on above: Performed By: #### H EMDF, PT, BMP3M, PHOS3, MG3, CK3 #### [address] [place] #### VD25H #### [facility] [address] [place] [address] Hemoglobin mass conc (Bld) 9.7 g/dL Normal ScreenOnly [facility] Comment on above: Performed By: #### H EMDF, PT, BMP3M, PHOS3, MG3, CK3 #### [address] [place], [place] #### VD25H #### [facility] [address] [place] [address] Oxygen ppres (Bld) 99.9 mm[Hg] Normal 80.0-100.0 [facility] Comment on above: Performed By: #### H EMDF, PT, BMP3M, PHOS3, MG3, CK3 #### [address] [place] #### VD25H #### [facility] [address] [place] [address] Oxygen saturation in Blood 97.5 % Normal 95.0-100.0 [facility] Comment on above: Performed By: #### H EMDF, PT, BMP3M, PHOS3, MG3, CK3 #### [address] [place] #### VD25H #### [facility] [address] [place] [address] pCO2 36.0 mm[Hg] Normal 35.0-45.0 [facility] Comment on above: Performed By: #### H EMDF, PT, BMP3M, PHOS3, MG3, CK3 #### [address] [place] #### VD25H #### [facility] [address] [place] [address] pH (Bld) 7.450 Normal 7.350-7.450 [facility] Comment on above: Performed By: #### H EMDF, PT, BMP3M, PHOS3, MG3, CK3 #### [address] #### VD25H #### [facility] [address] [place] [address] Std Base Excess 0.6 mmol/L Normal -3.0-3.0 [facility] Comment on above: Performed By: #### H EMDF, PT, BMP3M, PHOS3, MG3, CK3 #### [address] [facility], [place] #### VD25H #### [facility] [address] [place] [address] FIO2 .50 Normal [facility] Comment on above: Performed By: #### H EMDF, PT, BMP3M, PHOS3, MG3, CK3 #### [address] [facility], [place] #### VD25H #### [facility] [address] [place] [address] Basic Metabolic Panelon 06-29 Calcium mass conc 7.6 mg/dL Low 8.4-10.4 [facility] Comment on above: Performed By: #### H EMDF, PT, BMP3M, PHOS3, MG3, CK3 #### [address] [facility] #### VD25H #### [facility] [address] [place] [address] Glucose mass conc 120 mg/dL High 70-100 [facility] Comment on above: Performed By: #### H EMDF, PT, BMP3M, PHOS3, MG3, CK3 #### [address] [facility] #### VD25H #### [facility] [address] [place] [address] Anion gap molar conc 7 Normal [facility] Comment on above: Performed By: #### H EMDF, PT, BMP3M, PHOS3, MG3, CK3 #### [address] [facility], [place] #### VD25H #### [facility] [address] [place] [address] CO2 molar conc 27 mmol/L Normal 22-30 [facility] Comment on above: Performed By: #### H EMDF, PT, BMP3M, PHOS3, MG3, CK3 #### [address] [facility], [place] #### VD25H #### [facility] [address] [place] [address] Creatinine mass conc 0.62 mg/dL Normal 0.52-1.25 [facility] Comment on above: Performed By: #### H EMDF, PT, BMP3M, PHOS3, MG3, CK3 #### [facility] [address] [place] [place] [address] #### VD25H #### [facility] [address] [place] [address] GFR/1.73 sq M predicted among blacks MDRD vol rate/area (S/P/Bld) mL/min/{1.73_m2} Normal >60 [facility] Comment on above: Performed By: #### H EMDF, PT, BMP3M, PHOS3, MG3, CK3 #### [address] [place] [address] #### VD25H #### [facility] [address] [place] [address] GFR/1.73 sq M predicted among non-blacks MDRD vol rate/area (S/P/Bld) mL/min/{1.73_m2} Normal >60 [facility] Comment on above: Result Comment: Sour ce- MDRD equation with creatinine calibration to IDMS(NKDEP) eGFR not recommended for drug dose adjustment Performed By: #### H EMDF, PT, BMP3M, PHOS3, MG3, CK3 #### [address] [facility], [place] #### VD25H #### [facility] [address] [place] [address] Urea nitrogen mass conc 17 mg/dL Normal 7-20 [facility] Comment on above: Performed By: #### H EMDF, PT, BMP3M, PHOS3, MG3, CK3 #### [address] [place] [address] #### VD25H #### [facility] [address] [place] [address] Chloride molar conc 105 mmol/L Normal 98-107 [facility] Comment on above: Performed By: #### H EMDF, PT, BMP3M, PHOS3, MG3, CK3 #### [address] [facility] #### VD25H #### [facility] [address] [place] [address] Potassium molar conc 3.8 mmol/L Normal 3.5-5.1 [facility] Comment on above: Performed By: #### H EMDF, PT, BMP3M, PHOS3, MG3, CK3 #### [facility] [address] [place] [address] #### VD25H #### [facility] [address] [place] [address] Sodium molar conc 139 mmol/L Normal 135-145 [facility] Comment on above: Performed By: #### H EMDF, PT, BMP3M, PHOS3, MG3, CK3 #### [facility] [address] [place] [address] #### VD25H #### [facility] [address] [place] [address] CR Chest Portableon 07-14-19 CR Chest Portable Patient Name: KATHYA HOOPER Diagnostic Radiology Exam Date/Time 07/13/2018 06:05:45 EDT Exam CR Chest Portable Ordering Physician MARIA EUGENIA PEREZ Accession Number [id number] CPT4 Codes 99289 () Reason For Exam ETT placement Report [...] Transcribed Date and Time: 07/13/2018 6:33 Normal [facility] Calcium,Ionizedon 07-13-2018 Ionized Ca,Measured 4.10 mg/dL Low 4.30-5.20 [facility] Comment on above: Performed By: #### H EMDF, PT, BMP3M, PHOS3, MG3, CK3 #### [address] #### VD25H #### [facility] [address] [place] [address] pH, Ionized Calcium 7.40 Normal 7.31-7.46 [facility] Comment on above: Performed By: #### H EMDF, PT, BMP3M, PHOS3, MG3, CK3 #### [address] #### VD25H #### [facility] [address] [place] [address] Hemogram w/ Autodiffon 07-13 Abs Baso Cnt 0.0 10*3/uL Normal 0.0-0.2 [facility] Comment on above: Performed By: #### H EMDF, PT, BMP3M, PHOS3, MG3, CK3 #### [address] [address] [place] #### VD25H #### [facility] [address] [place] [address] Abs Neutrophile Cnt 11.2 10*3/uL High 1.8-7.0 [facility] Comment on above: Performed By: #### H EMDF, PT, BMP3M, PHOS3, MG3, CK3 #### [address] #### VD25H #### [facility] [address] [place] [address] Basophils/100 WBC (Bld) 0.3 % Normal 0.0-2.0 [facility] Comment on above: Performed By: #### H EMDF, PT, BMP3M, PHOS3, MG3, CK3 #### [facility] [address] [place] #### VD25H #### [facility] [address] [place] [address] Eosinophils #/vol (Bld) 0.2 10*3/uL Normal 0.0-0.5 [facility] Comment on above: Performed By: #### H EMDF, PT, BMP3M, PHOS3, MG3, CK3 #### [address] #### VD25H #### [facility] [address] [place] [address] Eosinophils/100 WBC (Bld) 1.1 % Normal 1.0-6.0 [facility] Comment on above: Performed By: #### H EMDF, PT, BMP3M, PHOS3, MG3, CK3 #### [address] #### VD25H #### [facility] [address] [place] [address] Erythrocyte distribution width Ratio (RBC) 13.9 % Normal 11.5-14.5 [facility] Comment on above: Performed By: #### H EMDF, PT, BMP3M, PHOS3, MG3, CK3 #### [address] #### VD25H #### [facility] [address] [place] [address] Granulocytes/100 WBC (Bld) 82.2 % High 40.0-80.0 [facility] Comment on above: Performed By: #### H EMDF, PT, BMP3M, PHOS3, MG3, CK3 #### [address] #### VD25H #### [facility] [address] [place] [address] Hematocrit Volume Fraction (Bld) 36.7 % Low 40.0-52.0 [facility] Comment on above: Performed By: #### H EMDF, PT, BMP3M, PHOS3, MG3, CK3 #### [facility] [address] [place], [place] #### VD25H #### [facility] [address] [place] [address] Hemoglobin mass conc (Bld) 12.6 g/dL Low 13.0-18.0 [facility] Comment on above: Performed By: #### H EMDF, PT, BMP3M, PHOS3, MG3, CK3 #### [address] #### VD25H #### [facility] [address] [place] [address] Lymphocytes #/vol (Bld) 1.1 10*3/uL Normal 1.0-4.3 [facility] Comment on above: Performed By: #### H EMDF, PT, BMP3M, PHOS3, MG3, CK3 #### [address] #### VD25H #### [facility] [address] [place] [address] Lymphocytes/100 WBC (Bld) 8.2 % Low 20.0-40.0 [facility] Comment on above: Performed By: #### H EMDF, PT, BMP3M, PHOS3, MG3, CK3 #### [address] [place], [place] #### VD25H #### [facility] [address] [place] [address] MCH Entitic mass (RBC) 29.6 pg Normal 26.0-34.0 [facility] Comment on above: Performed By: #### H EMDF, PT, BMP3M, PHOS3, MG3, CK3 #### [address] #### VD25H #### [facility] [address] [place] [address] MCHC mass conc (RBC) 34.4 % Normal 32.0-36.0 [facility] Comment on above: Performed By: #### H EMDF, PT, BMP3M, PHOS3, MG3, CK3 #### [address] #### VD25H #### [facility] [address] [place] [address] MCV Entitic volume (RBC) 86.2 fL Normal 80.0-98.0 [facility] Comment on above: Performed By: #### H EMDF, PT, BMP3M, PHOS3, MG3, CK3 #### [address] #### VD25H #### [facility] [address] [place] [address] Monocytes #/vol (Bld) 1.1 10*3/uL High 0.0-0.8 [facility] Comment on above: Performed By: #### H EMDF, PT, BMP3M, PHOS3, MG3, CK3 #### [address] #### VD25H #### [facility] [address] [place] [address] Monocytes/100 WBC (Bld) 8.2 % Normal 2.0-10.0 [facility] Comment on above: Performed By: #### H EMDF, PT, BMP3M, PHOS3, MG3, CK3 #### [address] #### VD25H #### [facility] [address] [place] [address] Platelet mean volume Entitic volume (Bld) 8.1 fL Normal 7.4-10.4 [facility] Comment on above: Performed By: #### H EMDF, PT, BMP3M, PHOS3, MG3, CK3 #### [address] #### VD25H #### [facility] [address] [place] [address] Platelets #/vol (Bld) 194 10*3/uL Normal 140-440 [facility] Comment on above: Performed By: #### H EMDF, PT, BMP3M, PHOS3, MG3, CK3 #### [address] #### VD25H #### [facility] [address] [place] [address] RBC #/vol (Bld) 4.26 10*6/uL Low 4.40-5.90 [facility] [facility] Comment on above: Performed By: #### H EMDF, PT, BMP3M, PHOS3, MG3, CK3 #### [address] #### VD25H #### [facility] [address] [place] [address] WBC #/vol (Bld) 13.7 10*3/uL High 3.6-10.7 [facility] Comment on above: Performed By: #### H EMDF, PT, BMP3M, PHOS3, MG3, CK3 #### [address] #### VD25H #### [facility] [address] [place] [address] Arterial Blood Gaseson 07-12 CO2 molar conc 26.4 mmol/L Normal 23.0-27.0 [facility] Comment on above: Performed By: #### H EMDF, PT, BMP3M, PHOS3, MG3, CK3 #### [address] #### VD25H #### [facility] [address] [place] [address] HCO3 molar conc (Bld) 25.2 mmol/L High 21.0-25.0 [facility] Comment on above: Performed By: #### H EMDF, PT, BMP3M, PHOS3, MG3, CK3 #### [address] [place], [place] #### VD25H #### [facility] [address] [place] [address] Hemoglobin mass conc (Bld) 13.9 g/dL Normal ScreenOnly [facility] Comment on above: Performed By: #### H EMDF, PT, BMP3M, PHOS3, MG3, CK3 #### [address] [place], [place] #### VD25H #### [facility] [address] [place] [address] Oxygen ppres (Bld) 83.9 mm[Hg] Normal 80.0-100.0 [facility] Comment on above: Performed By: #### H EMDF, PT, BMP3M, PHOS3, MG3, CK3 #### [address] [place], [place] #### VD25H #### [facility] [address] [place] [address] Oxygen saturation in Blood 96.3 % Normal 95.0-100.0 [facility] Comment on above: Performed By: #### H EMDF, PT, BMP3M, PHOS3, MG3, CK3 #### [address] [place], [place] #### VD25H #### [facility] [address] [place] [address] pCO2 38.2 mm[Hg] Normal 35.0-45.0 [facility] Comment on above: Performed By: #### H EMDF, PT, BMP3M, PHOS3, MG3, CK3 #### [address] [place], [place] #### VD25H #### [facility] [address] [place] [address] pH (Bld) 7.437 Normal 7.350-7.450 [facility] Comment on above: Performed By: #### H EMDF, PT, BMP3M, PHOS3, MG3, CK3 #### [address] [place], [place] #### VD25H #### [facility] [address] [place] [address] Std Base Excess 1.1 mmol/L Normal -3.0-3.0 [facility] Comment on above: Performed By: #### H EMDF, PT, BMP3M, PHOS3, MG3, CK3 #### [address] [place], [place] #### VD25H #### [facility] [address] [place] [address] FIO2 50% Normal [facility] Comment on above: Performed By: #### H EMDF, PT, BMP3M, PHOS3, MG3, CK3 #### [address] #### VD25H #### [facility] [address] [place] [address] CO2 molar conc 27.2 mmol/L High 23.0-27.0 [facility] Comment on above: Performed By: #### H EMDF, PT, BMP3M, PHOS3, MG3, CK3 #### [address] [place] #### VD25H #### [place] [address] [place] [address] HCO3 molar conc (Bld) 26.1 mmol/L High 21.0-25.0 [facility] Comment on above: Performed By: #### H EMDF, PT, BMP3M, PHOS3, MG3, CK3 #### [address] [place] #### VD25H #### [place] [address] [place] [address] Hemoglobin mass conc (Bld) 14.7 g/dL Normal ScreenOnly [facility] Comment on above: Performed By: #### H EMDF, PT, BMP3M, PHOS3, MG3, CK3 #### [facility] [address] [place], [place] #### VD25H #### [facility] [address] [place] [address] Oxygen ppres (Bld) 125.7 mm[Hg] High 80.0-100.0 [facility] Comment on above: Performed By: #### H EMDF, PT, BMP3M, PHOS3, MG3, CK3 #### [address] [facility], [place] #### VD25H #### [facility] [address] [place] [address] Oxygen saturation in Blood 98.6 % Normal 95.0-100.0 [facility] Comment on above: Performed By: #### H EMDF, PT, BMP3M, PHOS3, MG3, CK3 #### [address] #### VD25H #### [place] [address] [place] [address] pCO2 37.5 mm[Hg] Normal 35.0-45.0 [facility] Comment on above: Performed By: #### H EMDF, PT, BMP3M, PHOS3, MG3, CK3 #### [address] [place], [place] #### VD25H #### [facility] [address] [place] [address] pH (Bld) 7.460 High 7.350-7.450 [facility] Comment on above: Performed By: #### H EMDF, PT, BMP3M, PHOS3, MG3, CK3 #### [address] [place], [place] #### VD25H #### [facility] [address] [place] [address] Std Base Excess 2.4 mmol/L Normal -3.0-3.0 [facility] Comment on above: Performed By: #### H EMDF, PT, BMP3M, PHOS3, MG3, CK3 #### [facility] [address] [place] #### VD25H #### [facility] [address] [place] [address] FIO2 62.5 Normal [facility] Comment on above: Performed By: #### H EMDF, PT, BMP3M, PHOS3, MG3, CK3 #### [address] [facility], [place] #### VD25H #### [facility] [address] [place] [address] Basic Metabolic Panelon - Anion gap molar conc 6 Normal [facility] Comment on above: Performed By: #### H EMDF, PT, BMP3M, PHOS3, MG3, CK3 #### [address] [place] #### VD25H #### [facility] [address] [place] [address] Calcium mass conc 8.0 mg/dL Low 8.4-10.4 [facility] Comment on above: Performed By: #### H EMDF, PT, BMP3M, PHOS3, MG3, CK3 #### [address] [facility], [place] #### VD25H #### [facility] [address] [place] [address] CO2 molar conc 28 mmol/L Normal 22-30 [facility] Comment on above: Performed By: #### H EMDF, PT, BMP3M, PHOS3, MG3, CK3 #### [address] [facility], [place] #### VD25H #### [facility] [address] [place] [address] Creatinine mass conc 0.62 mg/dL Normal 0.52-1.25 [facility] Comment on above: Performed By: #### H EMDF, PT, BMP3M, PHOS3, MG3, CK3 #### [address] [facility], [place] #### VD25H #### [facility] [address] [place] [address] GFR/1.73 sq M predicted among blacks MDRD vol rate/area (S/P/Bld) mL/min/{1.73_m2} Normal >60 [facility] Comment on above: Performed By: #### H EMDF, PT, BMP3M, PHOS3, MG3, CK3 #### [address] #### VD25H #### [place] [address] [place] [address] GFR/1.73 sq M predicted among non-blacks MDRD vol rate/area (S/P/Bld) mL/min/{1.73_m2} Normal >60 [facility] Comment on above: Result Comment: Sour ce- MDRD equation with creatinine calibration to IDMS(NKDEP) eGFR not recommended for drug dose adjustment Performed By: #### H EMDF, PT, BMP3M, PHOS3, MG3, CK3 #### [address] #### VD25H #### [place] [address] [place] [address] Glucose mass conc 125 mg/dL High 70-100 [facility] Comment on above: Performed By: #### H EMDF, PT, BMP3M, PHOS3, MG3, CK3 #### [address] #### VD25H #### [facility] [address] [place] [address] Urea nitrogen mass conc 12 mg/dL Normal 7-20 [facility] Comment on above: Performed By: #### H EMDF, PT, BMP3M, PHOS3, MG3, CK3 #### [address] #### VD25H #### [place] [address] [place] [address] Chloride molar conc 104 mmol/L Normal 98-107 [facility] Comment on above: Performed By: #### H EMDF, PT, BMP3M, PHOS3, MG3, CK3 #### [facility] [address] [place] [address] #### VD25H #### [facility] [address] [place] [address] Potassium molar conc 3.6 mmol/L Normal 3.5-5.1 [facility] Comment on above: Performed By: #### H EMDF, PT, BMP3M, PHOS3, MG3, CK3 #### [facility] [address] [place] [address] #### VD25H #### [facility] [address] [place] [address] Sodium molar conc 138 mmol/L Normal 135-145 [facility] Comment on above: Performed By: #### H EMDF, PT, BMP3M, PHOS3, MG3, CK3 #### [facility] [address] [place], [place] #### VD25H #### [facility] [address] [place] [address] CR Chest Portableon 07-13-19 19 CR Chest Portable Patient Name: KATHYA HOOPER Diagnostic Radiology Exam Date/Time 07/12/2018 10:18:11 EDT Exam CR Chest Portable Ordering Physician MARIA EUGENIA PEREZ Accession Number [id number] CPT4 Codes 40608 () Reason For Exam ETT Placement Report [...] R Transcribed Date and Time: 07/12/2018 1:21 [facility] CR Chest Portable Patient Name: KATHYA HOOPER Diagnostic Radiology Exam Date/Time 07/12/2018 06:19:03 EDT Exam CR Chest Portable Ordering Physician MD NATE, [facility] Accession Number [id number] CPT4 Codes 42508 () Reason For Exam dyspnea Report PORTABLE [...] Transcribed Date and Time: 07/12/2018 8:01 Normal [facility] Hemogram w/ Autodiffon 07-12 Abs Baso Cnt 0.0 10*3/uL Normal 0.0-0.2 [facility] Comment on above: Performed By: #### H EMDF, PT, BMP3M, PHOS3, MG3, CK3 #### [facility] [address] [place], [place] #### VD25H #### [facility] [address] [place] [address] Abs Neutrophile Cnt 10.2 10*3/uL High 1.8-7.0 [facility] Comment on above: Performed By: #### H EMDF, PT, BMP3M, PHOS3, MG3, CK3 #### [address] #### VD25H #### [facility] [address] [place] [address] Basophils/100 WBC (Bld) 0.4 % Normal 0.0-2.0 [facility] Comment on above: Performed By: #### H EMDF, PT, BMP3M, PHOS3, MG3, CK3 #### [address] #### VD25H #### [facility] [address] [place] [address] Eosinophils #/vol (Bld) 0.1 10*3/uL Normal 0.0-0.5 [facility] Comment on above: Performed By: #### H EMDF, PT, BMP3M, PHOS3, MG3, CK3 #### [address] #### VD25H #### [facility] [address] [place] [address] Eosinophils/100 WBC (Bld) 0.6 % Low 1.0-6.0 [facility] Comment on above: Performed By: #### H EMDF, PT, BMP3M, PHOS3, MG3, CK3 #### [address] [place], [place] #### VD25H #### [facility] [address] [place] [address] Erythrocyte distribution width Ratio (RBC) 13.5 % Normal 11.5-14.5 [facility] Comment on above: Performed By: #### H EMDF, PT, BMP3M, PHOS3, MG3, CK3 #### [address] [place] #### VD25H #### [facility] [address] [place] [address] Granulocytes/100 WBC (Bld) 84.7 % High 40.0-80.0 [facility] Comment on above: Performed By: #### H EMDF, PT, BMP3M, PHOS3, MG3, CK3 #### [address] [place], [place] #### VD25H #### [facility] [address] [place] [address] Hematocrit Volume Fraction (Bld) 39.7 % Low 40.0-52.0 [facility] Comment on above: Performed By: #### H EMDF, PT, BMP3M, PHOS3, MG3, CK3 #### [address] [place], [place] #### VD25H #### [facility] [address] [place] [address] Hemoglobin mass conc (Bld) 13.5 g/dL Normal 13.0-18.0 [facility] Comment on above: Performed By: #### H EMDF, PT, BMP3M, PHOS3, MG3, CK3 #### [address] #### VD25H #### [facility] [address] [place] [address] Lymphocytes #/vol (Bld) 0.9 10*3/uL Low 1.0-4.3 [facility] Comment on above: Performed By: #### H EMDF, PT, BMP3M, PHOS3, MG3, CK3 #### [facility] [address] [place], [place] #### VD25H #### [facility] [address] [place] [address] Lymphocytes/100 WBC (Bld) 7.6 % Low 20.0-40.0 [facility] Comment on above: Performed By: #### H EMDF, PT, BMP3M, PHOS3, MG3, CK3 #### [address] #### VD25H #### [facility] [address] [place] [address] MCH Entitic mass (RBC) 29.6 pg Normal 26.0-34.0 [facility] Comment on above: Performed By: #### H EMDF, PT, BMP3M, PHOS3, MG3, CK3 #### [address] #### VD25H #### [facility] [address] [place] [address] MCHC mass conc (RBC) 34.1 % Normal 32.0-36.0 [facility] Comment on above: Performed By: #### H EMDF, PT, BMP3M, PHOS3, MG3, CK3 #### [address] #### VD25H #### [facility] [address] [facility] [place] [address] MCV Entitic volume (RBC) 87.0 fL Normal 80.0-98.0 [facility] Comment on above: Performed By: #### H EMDF, PT, BMP3M, PHOS3, MG3, CK3 #### [address] #### VD25H #### [facility] [address] [facility] [place] [address] Monocytes #/vol (Bld) 0.8 10*3/uL Normal 0.0-0.8 [facility] Comment on above: Performed By: #### H EMDF, PT, BMP3M, PHOS3, MG3, CK3 #### [facility] [address] [place] #### VD25H #### [facility] [address] [place] [address] Monocytes/100 WBC (Bld) 6.7 % Normal 2.0-10.0 [facility] Comment on above: Performed By: #### H EMDF, PT, BMP3M, PHOS3, MG3, CK3 #### [address] [address] [place] #### VD25H #### [facility] [address] [place] [address] Platelet mean volume Entitic volume (Bld) 8.4 fL Normal 7.4-10.4 [facility] Comment on above: Performed By: #### H EMDF, PT, BMP3M, PHOS3, MG3, CK3 #### [address] #### VD25H #### [facility] [address] [place] [address] Platelets #/vol (Bld) 185 10*3/uL Normal 140-440 [facility] Comment on above: Performed By: #### H EMDF, PT, BMP3M, PHOS3, MG3, CK3 #### [address] [place], [place] #### VD25H #### [facility] [address] [place] [address] RBC #/vol (Bld) 4.57 10*6/uL Normal 4.40-5.90 [facility] Comment on above: Performed By: #### H EMDF, PT, BMP3M, PHOS3, MG3, CK3 #### [address] #### VD25H #### [facility] [address] [facility] [place] [address] WBC #/vol (Bld) 12.1 10*3/uL High 3.6-10.7 [facility] [email or web address] [facility] Comment on above: Performed By: #### H EMDF, PT, BMP3M, PHOS3, MG3, CK3 #### [facility] [address] [place] [address] #### VD25H #### [facility] [address] [facility] [place] [address] VL Venous Duplex US Lower Ex t Bilateralon 07-12-2018 VL Venous Duplex US Lower Ext Bilateral Patient Name: KATHYA HOOPER Ultrasound Exam Date/Time 07/12/2018 17:20:46 EDT Exam VL Venous Duplex US Lower Ext Bilateral Ordering Physician MD AVELAR ADAM Accession Number [id number] CPT4 Codes 16105 () Reason For Exam leg swelling Report [facility] --- Lower Extremity Venous Duplex Report Patient Name: Kathya Hooper : 1955 Study Date: 07/12/2018 W (63yrs) Age: 63 Account: [id number] Gender: M Loc: T209 BP: Ordering: Joshua Avelar Technologist: Ordering Physician: Joshua Avelar Hammersmith Helper: Elizabeth Sanford RVT Interpreting Physician: Krysta Arora --- Location: [facility] --- INDICATIONS: Edema. bilateral calves. --- CONCLUSIONS [...] performed. The images were obtained using a Unblab E9 vascular ultrasound machine. --- VENOUS FLOW [...] ---------+-------+--- --+ Electronically signed by: Krysta Arora [id number] Final Dictated: 07/13/2018 8:45 am Dictating Physician: KRYSTA ARORA Signed Date and Time: 07/13/2018 8:45 am Signed by: KRYSTA ARORA [facility] Basic Metabolic Panelon 06-29 Calcium mass conc 7.8 mg/dL Low 8.4-10.4 [facility] Comment on above: Performed By: #### H EMDF, PT, BMP3M, PHOS3, MG3, CK3 #### [address] [facility], [place] #### VD25H #### [facility] [address] [place] [address] Anion gap molar conc 4 Normal [facility] Comment on above: Performed By: #### H EMDF, PT, BMP3M, PHOS3, MG3, CK3 #### [place] [address] [facility], [place] #### VD25H #### [facility] [address] [place] [address] CO2 molar conc 26 mmol/L Normal 22-30 [facility] Comment on above: Performed By: #### H EMDF, PT, BMP3M, PHOS3, MG3, CK3 #### [address] [facility], [place] #### VD25H #### [facility] [address] [place] [address] Glucose mass conc 118 mg/dL High 70-100 [facility] Comment on above: Performed By: #### H EMDF, PT, BMP3M, PHOS3, MG3, CK3 #### [place] [facility] #### VD25H #### [facility] [address] [place] [address] Urea nitrogen mass conc 19 mg/dL Normal 7-20 [facility] Comment on above: Performed By: #### H EMDF, PT, BMP3M, PHOS3, MG3, CK3 #### [place] [facility] #### VD25H #### [facility] [address] [place] [address] Creatinine mass conc 0.74 mg/dL Normal 0.52-1.25 [facility] Comment on above: Performed By: #### H EMDF, PT, BMP3M, PHOS3, MG3, CK3 #### [address] #### VD25H #### [facility] [address] [place] [address] GFR/1.73 sq M predicted among blacks MDRD vol rate/area (S/P/Bld) mL/min/{1.73_m2} Normal >60 [facility] Comment on above: Performed By: #### H EMDF, PT, BMP3M, PHOS3, MG3, CK3 #### [address] #### VD25H #### [facility] [address] [place] [place] [address] GFR/1.73 sq M predicted among non-blacks MDRD vol rate/area (S/P/Bld) mL/min/{1.73_m2} Normal >60 [facility] Comment on above: Result Comment: Sour ce- MDRD equation with creatinine calibration to IDMS(NKDEP) eGFR not recommended for drug dose adjustment Performed By: #### H EMDF, PT, BMP3M, PHOS3, MG3, CK3 #### [address] #### VD25H #### [facility] [address] [place] [address] Chloride molar conc 112 mmol/L High 98-107 [facility] Comment on above: Performed By: #### H EMDF, PT, BMP3M, PHOS3, MG3, CK3 #### [address] #### VD25H #### [facility] [address] [place] [address] Potassium molar conc 3.8 mmol/L Normal 3.5-5.1 [facility] Comment on above: Performed By: #### H EMDF, PT, BMP3M, PHOS3, MG3, CK3 #### [address] #### VD25H #### [facility] [employer] [facility] [address] [place] [address] Sodium molar conc 141 mmol/L Normal 135-145 [facility] Comment on above: Performed By: #### H EMDF, PT, BMP3M, PHOS3, MG3, CK3 #### [facility] [employer] [facility] [address] [place] [address] #### VD25H #### [facility] [address] [place] [address] CR Chest 1 View Frontalon CR Chest 1 View Frontal Patient Name: KATHYA FELDER Diagnostic Radiology Exam Date/Time 07/11/2018 06:36:48 EDT Exam CR Chest 1 View Frontal Ordering Physician MD AVELAR ADAM Accession Number [id number] CPT4 Codes 41974 () Reason For Exam dyspnea Report EXAM [...] Transcribed Date and Time: 07/11/2018 7:05 Normal [facility] Hemogram w/ Autodiffon 07-11 Abs Baso Cnt 0.0 10*3/uL Normal 0.0-0.2 [facility] Comment on above: Performed By: #### H EMDF, PT, BMP3M, PHOS3, MG3, CK3 #### [facility] [address] [place], [place] #### VD25H #### [facility] [address] [place] [address] Abs Neutrophile Cnt 8.8 10*3/uL High 1.8-7.0 [facility] Comment on above: Performed By: #### H EMDF, PT, BMP3M, PHOS3, MG3, CK3 #### [address] #### VD25H #### [facility] [address] [place] [address] Basophils/100 WBC (Bld) 0.4 % Normal 0.0-2.0 [facility] Comment on above: Performed By: #### H EMDF, PT, BMP3M, PHOS3, MG3, CK3 #### [address] #### VD25H #### [facility] [address] [place] [address] Eosinophils #/vol (Bld) 0.0 10*3/uL Normal 0.0-0.5 [facility] Comment on above: Performed By: #### H EMDF, PT, BMP3M, PHOS3, MG3, CK3 #### [address] #### VD25H #### [facility] [address] [place] [address] Eosinophils/100 WBC (Bld) 0.4 % Low 1.0-6.0 [facility] Comment on above: Performed By: #### H EMDF, PT, BMP3M, PHOS3, MG3, CK3 #### [address] [address] #### VD25H #### [facility] [address] [place] [address] Erythrocyte distribution width Ratio (RBC) 13.7 % Normal 11.5-14.5 [facility] Comment on above: Performed By: #### H EMDF, PT, BMP3M, PHOS3, MG3, CK3 #### [address] #### VD25H #### [facility] [address] [place] [address] Granulocytes/100 WBC (Bld) 80.6 % High 40.0-80.0 [facility] Comment on above: Performed By: #### H EMDF, PT, BMP3M, PHOS3, MG3, CK3 #### [address] #### VD25H #### [place] [address] [place] [address] Hematocrit Volume Fraction (Bld) 32.8 % Low 40.0-52.0 [facility] Comment on above: Performed By: #### H EMDF, PT, BMP3M, PHOS3, MG3, CK3 #### [address] #### VD25H #### [place] [address] [place] [address] Hemoglobin mass conc (Bld) 11.4 g/dL Low 13.0-18.0 [facility] Comment on above: Performed By: #### H EMDF, PT, BMP3M, PHOS3, MG3, CK3 #### [address] #### VD25H #### [facility] [address] [place] [address] Lymphocytes #/vol (Bld) 1.3 10*3/uL Normal 1.0-4.3 [facility] Comment on above: Performed By: #### H EMDF, PT, BMP3M, PHOS3, MG3, CK3 #### [address] #### VD25H #### [facility] [address] [place] [address] Lymphocytes/100 WBC (Bld) 11.5 % Low 20.0-40.0 [facility] Comment on above: Performed By: #### H EMDF, PT, BMP3M, PHOS3, MG3, CK3 #### [address] [place], [place] #### VD25H #### [facility] [address] [place] [address] MCH Entitic mass (RBC) 30.2 pg Normal 26.0-34.0 [facility] Comment on above: Performed By: #### H EMDF, PT, BMP3M, PHOS3, MG3, CK3 #### [address] #### VD25H #### [place] [address] [place] [address] MCHC mass conc (RBC) 34.7 % Normal 32.0-36.0 [facility] Comment on above: Performed By: #### H EMDF, PT, BMP3M, PHOS3, MG3, CK3 #### [address] [place], [place] #### VD25H #### [facility] [address] [place] [address] MCV Entitic volume (RBC) 86.9 fL Normal 80.0-98.0 [facility] Comment on above: Performed By: #### H EMDF, PT, BMP3M, PHOS3, MG3, CK3 #### [address] #### VD25H #### [facility] [address] [facility] [place] [address] Monocytes #/vol (Bld) 0.8 10*3/uL Normal 0.0-0.8 [facility] Comment on above: Performed By: #### H EMDF, PT, BMP3M, PHOS3, MG3, CK3 #### [facility] [address] [place], [place] #### VD25H #### [facility] [address] [place] [address] Monocytes/100 WBC (Bld) 7.1 % Normal 2.0-10.0 [facility] Comment on above: Performed By: #### H EMDF, PT, BMP3M, PHOS3, MG3, CK3 #### [address] [place], [place] #### VD25H #### [facility] [address] [place] [address] Platelet mean volume Entitic volume (Bld) 8.8 fL Normal 7.4-10.4 [facility] Comment on above: Performed By: #### H EMDF, PT, BMP3M, PHOS3, MG3, CK3 #### [address] #### VD25H #### [facility] [address] [place] [address] Platelets #/vol (Bld) 158 10*3/uL Normal 140-440 [facility] Comment on above: Performed By: #### H EMDF, PT, BMP3M, PHOS3, MG3, CK3 #### [address] #### VD25H #### [facility] [address] [place] [address] RBC #/vol (Bld) 3.78 10*6/uL Low 4.40-5.90 [facility] Comment on above: Performed By: #### H EMDF, PT, BMP3M, PHOS3, MG3, CK3 #### [address] #### VD25H #### [facility] [address] [place] [address] WBC #/vol (Bld) 10.9 10*3/uL High 3.6-10.7 [facility] Comment on above: Performed By: #### H EMDF, PT, BMP3M, PHOS3, MG3, CK3 #### [facility] [address] [place], [place] #### VD25H #### [facility] [address] [place] [address] Magnesiumon 07-11-2018 Magnesium mass conc 2.3 mg/dL Normal 1.6-2.3 [facility] Comment on above: Performed By: #### H EMDF, PT, BMP3M, PHOS3, MG3, CK3 #### [place] [address] [place], [place] #### VD25H #### [facility] [address] [place] [address] Phosphoruson 07-11-2018 Phosphate mass conc 2.8 mg/dL Normal 2.5-4.5 [facility] Comment on above: Performed By: #### H EMDF, PT, BMP3M, PHOS3, MG3, CK3 #### [address] [place], [place] #### VD25H #### [facility] [address] [place] [address] Basic Metabolic Panelon 06-29 Calcium mass conc 8.9 mg/dL Normal 8.4-10.4 [facility] Comment on above: Performed By: #### H EMDF, PT, BMP3M, PHOS3, MG3, CK3 #### [address] [place], [place] #### VD25H #### [facility] [address] [place] [address] Glucose mass conc 133 mg/dL High 70-100 [facility] Comment on above: Performed By: #### H EMDF, PT, BMP3M, PHOS3, MG3, CK3 #### [address] #### VD25H #### [facility] [address] [place] [address] Anion gap molar conc 4 Normal [facility] Comment on above: Performed By: #### H EMDF, PT, BMP3M, PHOS3, MG3, CK3 #### [address] #### VD25H #### [facility] [address] [place] [address] CO2 molar conc 27 mmol/L Normal 22-30 [facility] Comment on above: Performed By: #### H EMDF, PT, BMP3M, PHOS3, MG3, CK3 #### [address] #### VD25H #### [facility] [address] [place] [address] Creatinine mass conc 0.69 mg/dL Normal 0.52-1.25 [facility] Comment on above: Performed By: #### H EMDF, PT, BMP3M, PHOS3, MG3, CK3 #### [address] #### VD25H #### [facility] [address] [place] [address] GFR/1.73 sq M predicted among blacks MDRD vol rate/area (S/P/Bld) mL/min/{1.73_m2} Normal >60 [facility] Comment on above: Performed By: #### H EMDF, PT, BMP3M, PHOS3, MG3, CK3 #### [address] #### VD25H #### [facility] [address] [place] [address] GFR/1.73 sq M predicted among non-blacks MDRD vol rate/area (S/P/Bld) mL/min/{1.73_m2} Normal >60 [facility] Comment on above: Result Comment: Sour ce- MDRD equation with creatinine calibration to IDMS(NKDEP) eGFR not recommended for drug dose adjustment Performed By: #### H EMDF, PT, BMP3M, PHOS3, MG3, CK3 #### [place] [address] [place] [place] [address] #### VD25H #### [facility] [address] [place] [address] Urea nitrogen mass conc 16 mg/dL Normal 7-20 [facility] Comment on above: Performed By: #### H EMDF, PT, BMP3M, PHOS3, MG3, CK3 #### [place] [address] [facility], [place] #### VD25H #### [facility] [address] [place] [address] Potassium molar conc 4.1 mmol/L Normal 3.5-5.1 [facility] Comment on above: Performed By: #### H EMDF, PT, BMP3M, PHOS3, MG3, CK3 #### [address] #### VD25H #### [facility] [address] [place] [address] Sodium molar conc 142 mmol/L Normal 135-145 [facility] Comment on above: Performed By: #### H EMDF, PT, BMP3M, PHOS3, MG3, CK3 #### [place] [facility], [place] #### VD25H #### [facility] [address] [place] [address] Chloride molar conc 110 mmol/L High 98-107 [facility] Comment on above: Performed By: #### H EMDF, PT, BMP3M, PHOS3, MG3, CK3 #### [place] [address] [facility], [place] #### VD25H #### [facility] [address] [place] [address] CKon 07-10-2018 CK enzyme act/vol 1291 U/L High 30-170 [facility] Comment on above: Performed By: #### H EMDF, PT, BMP3M, PHOS3, MG3, CK3 #### [address] [place] [address] #### VD25H #### [facility] [address] [place] [address] CK enzyme act/vol 1382 U/L High 30-170 [facility] Comment on above: Performed By: #### H EMDF, PT, BMP3M, PHOS3, MG3, CK3 #### [facility] [address] [place] [address] #### VD25H #### [facility] [address] [place] [address] CR Chest 1 View Frontalon CR Chest 1 View Frontal Patient Name: KATHYA FELDER Diagnostic Radiology Exam Date/Time 07/10/2018 06:38:06 EDT Exam CR Chest 1 View Frontal [facility]ing [facility] Accession Number [id number] CPT4 Codes 66401 () Reason For Exam dyspnea Report EXAMINATION: [...] Transcribed Date and Time: 07/10/2018 8:57 Normal [facility] Hemogram w/ Autodiffon 07-10 Abs Baso Cnt 0.0 10*3/uL Normal 0.0-0.2 [facility] Comment on above: Performed By: #### H EMDF, PT, BMP3M, PHOS3, MG3, CK3 #### [facility] [address], [place] #### VD25H #### [facility] [address] [place] [address] Abs Neutrophile Cnt 12.2 10*3/uL High 1.8-7.0 [facility] Comment on above: Performed By: #### H EMDF, PT, BMP3M, PHOS3, MG3, CK3 #### [address] #### VD25H #### [facility] [address] [place] [address] Basophils/100 WBC (Bld) 0.3 % Normal 0.0-2.0 [facility] Comment on above: Performed By: #### H EMDF, PT, BMP3M, PHOS3, MG3, CK3 #### [address] #### VD25H #### [facility] [address] [place] [address] Eosinophils #/vol (Bld) 0.0 10*3/uL Normal 0.0-0.5 [facility] Comment on above: Performed By: #### H EMDF, PT, BMP3M, PHOS3, MG3, CK3 #### [address] #### VD25H #### [facility] [address] [place] [address] Eosinophils/100 WBC (Bld) 0.0 % Low 1.0-6.0 [facility] Comment on above: Performed By: #### H EMDF, PT, BMP3M, PHOS3, MG3, CK3 #### [address] #### VD25H #### [facility] [address] [place] [address] Erythrocyte distribution width Ratio (RBC) 13.9 % Normal 11.5-14.5 [facility] Comment on above: Performed By: #### H EMDF, PT, BMP3M, PHOS3, MG3, CK3 #### [address] [place], [place] #### VD25H #### [facility] [address] [place] [address] Granulocytes/100 WBC (Bld) 89.5 % High 40.0-80.0 [facility] Comment on above: Performed By: #### H EMDF, PT, BMP3M, PHOS3, MG3, CK3 #### [address] [place], [place] #### VD25H #### [facility] [address] [place] [address] Hematocrit Volume Fraction (Bld) 36.0 % Low 40.0-52.0 [facility] Comment on above: Performed By: #### H EMDF, PT, BMP3M, PHOS3, MG3, CK3 #### [address] [place], [place] #### VD25H #### [facility] [address] [place] [address] Hemoglobin mass conc (Bld) 12.3 g/dL Low 13.0-18.0 [facility] Comment on above: Performed By: #### H EMDF, PT, BMP3M, PHOS3, MG3, CK3 #### [address] [place], [place] #### VD25H #### [facility] [address] [place] [address] Lymphocytes #/vol (Bld) 0.6 10*3/uL Low 1.0-4.3 [facility] Comment on above: Performed By: #### H EMDF, PT, BMP3M, PHOS3, MG3, CK3 #### [facility] [address] [place], [place] #### VD25H #### [facility] [address] [place] [address] Lymphocytes/100 WBC (Bld) 4.3 % Low 20.0-40.0 [facility] Comment on above: Performed By: #### H EMDF, PT, BMP3M, PHOS3, MG3, CK3 #### [address] #### VD25H #### [facility] [address] [place] [address] MCH Entitic mass (RBC) 29.8 pg Normal 26.0-34.0 [facility] Comment on above: Performed By: #### H EMDF, PT, BMP3M, PHOS3, MG3, CK3 #### [address] #### VD25H #### [facility] [address] [place] [address] MCHC mass conc (RBC) 34.2 % Normal 32.0-36.0 [facility] Comment on above: Performed By: #### H EMDF, PT, BMP3M, PHOS3, MG3, CK3 #### [address] #### VD25H #### [facility] [address] [place] [address] MCV Entitic volume (RBC) 87.1 fL Normal 80.0-98.0 [facility] Comment on above: Performed By: #### H EMDF, PT, BMP3M, PHOS3, MG3, CK3 #### [address] #### VD25H #### [facility] [address] [place] [address] Monocytes #/vol (Bld) 0.8 10*3/uL Normal 0.0-0.8 [facility] Comment on above: Performed By: #### H EMDF, PT, BMP3M, PHOS3, MG3, CK3 #### [facility] [address] [place], [place] #### VD25H #### [facility] [address] [place] [address] Monocytes/100 WBC (Bld) 5.9 % Normal 2.0-10.0 [facility] Comment on above: Performed By: #### H EMDF, PT, BMP3M, PHOS3, MG3, CK3 #### [address] [place], [place] #### VD25H #### [facility] [address] [place] [address] Platelet mean volume Entitic volume (Bld) 8.4 fL Normal 7.4-10.4 [facility] Comment on above: Performed By: #### H EMDF, PT, BMP3M, PHOS3, MG3, CK3 #### [address] #### VD25H #### [facility] [address] [place] [address] Platelets #/vol (Bld) 155 10*3/uL Normal 140-440 [facility] Comment on above: Performed By: #### H EMDF, PT, BMP3M, PHOS3, MG3, CK3 #### [address] #### VD25H #### [facility] [address] [place] [address] RBC #/vol (Bld) 4.13 10*6/uL Low 4.40-5.90 [facility] Comment on above: Performed By: #### H EMDF, PT, BMP3M, PHOS3, MG3, CK3 #### [address] [place], [place] #### VD25H #### [facility] [address] [place] [address] WBC #/vol (Bld) 13.6 10*3/uL High 3.6-10.7 [facility] Comment on above: Performed By: #### H EMDF, PT, BMP3M, PHOS3, MG3, CK3 #### [address] [place], [place] #### VD25H #### [facility] [address] [place] [address] Magnesiumon 07-10-2018 Magnesium mass conc 2.3 mg/dL Normal 1.6-2.3 [facility] Comment on above: Performed By: #### H EMDF, PT, BMP3M, PHOS3, MG3, CK3 #### [address] #### VD25H #### [facility] [address] [place] [address] Phosphoruson 07-10-2018 Phosphate mass conc 2.7 mg/dL Normal 2.5-4.5 [facility] Comment on above: Performed By: #### H EMDF, PT, BMP3M, PHOS3, MG3, CK3 #### [address] [place], [place] #### VD25H #### [facility] [address] [place] [address] Add on test from HISon 07-09 Add on test from HIS Accepted Normal [facility] Comment on above: Result Comment: Spec imen available & acceptable for analysis. Performed By: #### A DDON #### [address] Arterial Blood Gaseson 07-09 CO2 molar conc 24.5 mmol/L Normal 23.0-27.0 [facility] Comment on above: Performed By: #### H EMDF, PT, BMP3M, PHOS3, MG3, CK3 #### [address] #### VD25H #### [facility] [address] [place] [address] HCO3 molar conc (Bld) 23.2 mmol/L Normal 21.0-25.0 [facility] Comment on above: Performed By: #### H EMDF, PT, BMP3M, PHOS3, MG3, CK3 #### [facility] [address] [place], [place] #### VD25H #### [facility] [address] [place] [address] Hemoglobin mass conc (Bld) 15.7 g/dL Normal ScreenOnly [facility] Comment on above: Performed By: #### H EMDF, PT, BMP3M, PHOS3, MG3, CK3 #### [address] [place], [place] #### VD25H #### [facility] [address] [place] [address] Oxygen ppres (Bld) 397.4 mm[Hg] High 80.0-100.0 [facility] Comment on above: Performed By: #### H EMDF, PT, BMP3M, PHOS3, MG3, CK3 #### [address] [place], [place] #### VD25H #### [facility] [address] [place] [address] Oxygen saturation in Blood 99.2 % Normal 95.0-100.0 [facility] Comment on above: Performed By: #### H EMDF, PT, BMP3M, PHOS3, MG3, CK3 #### [address] [address] [place] #### VD25H #### [facility] [address] [place] [address] pCO2 42.3 mm[Hg] Normal 35.0-45.0 [facility] Comment on above: Performed By: #### H EMDF, PT, BMP3M, PHOS3, MG3, CK3 #### [address] [place], [place] #### VD25H #### [facility] [address] [place] [address] pH (Bld) 7.357 Normal 7.350-7.450 [facility] Comment on above: Performed By: #### H EMDF, PT, BMP3M, PHOS3, MG3, CK3 #### [address] [place], [place] #### VD25H #### [facility] [address] [place] [address] Std Base Excess -2.3 mmol/L Normal -3.0-3.0 [facility] Comment on above: Performed By: #### H EMDF, PT, BMP3M, PHOS3, MG3, CK3 #### [address] [place], [place] #### VD25H #### [facility] [address] [place] [address] FIO2 100% Normal [facility] Comment on above: Performed By: #### H EMDF, PT, BMP3M, PHOS3, MG3, CK3 #### [address] #### VD25H #### [facility] [address] [place] [address] Basic Metabolic Panelon 06-29 Calcium mass conc 8.6 mg/dL Normal 8.4-10.4 [facility] Comment on above: Performed By: #### H EMDF, PT, BMP3M, PHOS3, MG3, CK3 #### [address] [address] [place] #### VD25H #### [facility] [address] [place] [address] Glucose mass conc 150 mg/dL High 70-100 [facility] Comment on above: Performed By: #### H EMDF, PT, BMP3M, PHOS3, MG3, CK3 #### [address] [place] [facility], [place] #### VD25H #### [facility] [address] [place] [address] Anion gap molar conc 7 Normal [facility] Comment on above: Performed By: #### H EMDF, PT, BMP3M, PHOS3, MG3, CK3 #### [address] #### VD25H #### [facility] [address] [place] [address] CO2 molar conc 26 mmol/L Normal 22-30 [facility] Comment on above: Performed By: #### H EMDF, PT, BMP3M, PHOS3, MG3, CK3 #### [address] #### VD25H #### [place] [address] [place] [address] Creatinine mass conc 0.80 mg/dL Normal 0.52-1.25 [facility] Comment on above: Performed By: #### H EMDF, PT, BMP3M, PHOS3, MG3, CK3 #### [address] #### VD25H #### [place] [address] [place] [address] GFR/1.73 sq M predicted among blacks MDRD vol rate/area (S/P/Bld) mL/min/{1.73_m2} Normal >60 [facility] Comment on above: Performed By: #### H EMDF, PT, BMP3M, PHOS3, MG3, CK3 #### [address] #### VD25H #### [place] [address] [place] [address] GFR/1.73 sq M predicted among non-blacks MDRD vol rate/area (S/P/Bld) mL/min/{1.73_m2} Normal >60 [facility] Comment on above: Result Comment: Sour ce- MDRD equation with creatinine calibration to IDMS(NKDEP) eGFR not recommended for drug dose adjustment Performed By: #### H EMDF, PT, BMP3M, PHOS3, MG3, CK3 #### [address] #### VD25H #### [facility] [address] [place] [address] Urea nitrogen mass conc 16 mg/dL Normal 7-20 [facility] Comment on above: Performed By: #### H EMDF, PT, BMP3M, PHOS3, MG3, CK3 #### [place] [facility], [place] #### VD25H #### [facility] [address] [place] [address] Chloride molar conc 110 mmol/L High 98-107 [facility] Comment on above: Performed By: #### H EMDF, PT, BMP3M, PHOS3, MG3, CK3 #### [address] [place] #### VD25H #### [facility] [address] [place] [address] Potassium molar conc 4.7 mmol/L Normal 3.5-5.1 [facility] Comment on above: Performed By: #### H EMDF, PT, BMP3M, PHOS3, MG3, CK3 #### [place] [address] [facility], [place] #### VD25H #### [facility] [address] [place] [address] Sodium molar conc 143 mmol/L Normal 135-145 [facility] Comment on above: Performed By: #### H EMDF, PT, BMP3M, PHOS3, MG3, CK3 #### [place] [address] [facility], [place] #### VD25H #### [facility] [address] [place] [address] CKon 07-09-2018 CK enzyme act/vol 1451 U/L High 30-170 [facility] Comment on above: Performed By: #### H EMDF, PT, BMP3M, PHOS3, MG3, CK3 #### [place] [address] [facility] #### VD25H #### [facility] [address] [place] [address] CK enzyme act/vol 3832 U/L High 30-170 [facility] Comment on above: Performed By: #### H EMDF, PT, BMP3M, PHOS3, MG3, CK3 #### [facility] [address] [facility] [place] [place] [address] #### VD25H #### [facility] [address] [place] [address] CR Chest 1 View Frontalon CR Chest 1 View Frontal Patient Name: KATHYA FELDER Diagnostic Radiology Exam Date/Time 07/09/2018 06:21:56 EDT Exam CR Chest 1 View Frontal Ordering Physician MD NATE, NICOLE HOLLEY Accession Number [id number] CPT4 Codes 12812 () Reason For Exam dyspnea Report CHEST [...] Transcribed Date and Time: 07/09/2018 6:39 Normal [facility] CR Chest Portableon 07-10-19 19 CR Chest Portable Patient Name: KATHYA HOOPER Diagnostic Radiology Exam Date/Time 07/09/2018 11:34:09 EDT Exam CR Chest Portable Ordering Physician [id number] JOHNSON Accession Number [id number] CPT4 Codes 57928 () Reason For Exam Central line placement [...] JOHN Transcribed Date and Time: 07/09/2018 1:01 [facility] CR Chest Portable Patient Name: KATHYA HOOPER Diagnostic Radiology Exam Date/Time 07/09/2018 03:05:20 EDT Exam CR Chest Portable Ordering Physician MD NATE, [facility] Accession Number [id number] CPT4 Codes 42407 () Reason For Exam intubation Report CHEST PORTABLE: Indication: Inpatient; intubation Views: Portable frontal Comparison: 07/08/2018 at 22:16 Time: 07/09/2018 at 2:46 FINDINGS: Interval intubation with endotracheal tube approximately 4.2 cm above the level of the alma. An enteric tube has been placed with distal tip below the hemidiaphragm but excluded from [id number]. Cardiac monitoring wires and leads are present. [...] Transcribed Date and Time: 07/09/2018 3:10 Normal [facility] CR Chest Portable Patient Name: KATHYA HOOPER Diagnostic Radiology Exam Date/Time 07/08/2018 22:31:57 EDT Exam CR Chest Portable Ordering [facility] MD [facility] Accession Number [id number] CPT4 Codes 63788 () Reason For Exam cough Report CHEST [...] Transcribed Date and Time: 07/08/2018 11:23 Normal [facility] CTA Head/Neck w/ + w/o contr birgit 07-09-2018 CTA Head/Neck w/ + w/o contrast Patient Name: KATHYA HOOPER CT Exam Date/Time 07/09/2018 04:42:10 EDT Exam CTA Head/Neck w/ + w/o contrast Ordering Physician MD RICKI, JORDAN Accession Number [id number] CPT4 Codes Q9967 (CT ISOVUE [id number] 3aysISzet1), 75975 (), 37928 () Reason For Exam CERVICAL SPINE FRACTURE Report CLINICAL INFORMATION: C-spine fracture after trauma. Vascular injury suspected. CTA HEAD: After 75 ml Isovue IV contrast, 0.3 mm axial cuts were obtained through the brain. Coronal and sagittal reconstructions are reviewed. In addition, 3D images of the [place] were constructed by me and reviewed simultaneously on the separate [employer] Workstation. The examination is compared to a [...] by and reviewed simultaneously on the separate [employer] Workstation. The examination is compared to a [...] at 0735 hrs. Report Dictated on Workstation: [id number] Final Dictated: 07/09/2018 9:50 am Dictating Physician: MD JERNIGAN JEFFREY Signed Date and Time: 07/09/2018 10:26 am Signed by: MD JERNIGAN JEFFREY Transcribed Date and Time: 07/09/2018 9:50 Normal [facility] Hemogram w/ Autodiffon 07-09 Abs Baso Cnt 0.1 10*3/uL Normal 0.0-0.2 [facility] Comment on above: Performed By: #### H EMDF, PT, BMP3M, PHOS3, MG3, CK3 #### [facility] [address] [place], [place] #### VD25H #### [facility] [address] [place] [address] Abs Neutrophile Cnt 13.3 10*3/uL High 1.8-7.0 [facility] Comment on above: Performed By: #### H EMDF, PT, BMP3M, PHOS3, MG3, CK3 #### [address] #### VD25H #### [facility] [address] [place] [address] Basophils/100 WBC (Bld) 0.3 % Normal 0.0-2.0 [facility] Comment on above: Performed By: #### H EMDF, PT, BMP3M, PHOS3, MG3, CK3 #### [address] #### VD25H #### [facility] [address] [place] [address] Eosinophils #/vol (Bld) 0.0 10*3/uL Normal 0.0-0.5 [facility] Comment on above: Performed By: #### H EMDF, PT, BMP3M, PHOS3, MG3, CK3 #### [address] #### VD25H #### [facility] [address] [place] [address] Eosinophils/100 WBC (Bld) 0.0 % Low 1.0-6.0 [facility] Comment on above: Performed By: #### H EMDF, PT, BMP3M, PHOS3, MG3, CK3 #### [address] #### VD25H #### [facility] [address] [place] [address] Erythrocyte distribution width Ratio (RBC) 13.7 % Normal 11.5-14.5 [facility] Comment on above: Performed By: #### H EMDF, PT, BMP3M, PHOS3, MG3, CK3 #### [address] #### VD25H #### [facility] [address] [place] [address] Granulocytes/100 WBC (Bld) 86.5 % High 40.0-80.0 [facility] Comment on above: Performed By: #### H EMDF, PT, BMP3M, PHOS3, MG3, CK3 #### [address] #### VD25H #### [place] [address] [place] [address] Hematocrit Volume Fraction (Bld) 45.1 % Normal 40.0-52.0 [facility] Comment on above: Performed By: #### H EMDF, PT, BMP3M, PHOS3, MG3, CK3 #### [address] #### VD25H #### [facility] [address] [place] [address] Hemoglobin mass conc (Bld) 15.6 g/dL Normal 13.0-18.0 [facility] Comment on above: Performed By: #### H EMDF, PT, BMP3M, PHOS3, MG3, CK3 #### [address] #### VD25H #### [facility] [address] [place] [address] Lymphocytes #/vol (Bld) 0.8 10*3/uL Low 1.0-4.3 [facility] Comment on above: Performed By: #### H EMDF, PT, BMP3M, PHOS3, MG3, CK3 #### [address] #### VD25H #### [facility] [address] [place] [address] Lymphocytes/100 WBC (Bld) 5.5 % Low 20.0-40.0 [facility] Comment on above: Performed By: #### H EMDF, PT, BMP3M, PHOS3, MG3, CK3 #### [address] #### VD25H #### [facility] [address] [place] [address] MCH Entitic mass (RBC) 29.9 pg Normal 26.0-34.0 [facility] Comment on above: Performed By: #### H EMDF, PT, BMP3M, PHOS3, MG3, CK3 #### [address] #### VD25H #### [place] [address] [place] [address] MCHC mass conc (RBC) 34.5 % Normal 32.0-36.0 [facility] Comment on above: Performed By: #### H EMDF, PT, BMP3M, PHOS3, MG3, CK3 #### [address] #### VD25H #### [address] [place] [address] MCV Entitic volume (RBC) 86.7 fL Normal 80.0-98.0 [facility] Comment on above: Performed By: #### H EMDF, PT, BMP3M, PHOS3, MG3, CK3 #### [address] #### VD25H #### [place] [address] [facility] [place] [address] Monocytes #/vol (Bld) 1.2 10*3/uL High 0.0-0.8 [facility] Comment on above: Performed By: #### H EMDF, PT, BMP3M, PHOS3, MG3, CK3 #### [address] #### VD25H #### [facility] [address] [place] [address] Monocytes/100 WBC (Bld) 7.7 % Normal 2.0-10.0 [facility] Comment on above: Performed By: #### H EMDF, PT, BMP3M, PHOS3, MG3, CK3 #### [place] [address] [place], [place] #### VD25H #### [facility] [address] [place] [address] Platelet mean volume Entitic volume (Bld) 8.1 fL Normal 7.4-10.4 [facility] Comment on above: Performed By: #### H EMDF, PT, BMP3M, PHOS3, MG3, CK3 #### [address] #### VD25H #### [facility] [address] [place] [address] Platelets #/vol (Bld) 197 10*3/uL Normal 140-440 [facility] Comment on above: Performed By: #### H EMDF, PT, BMP3M, PHOS3, MG3, CK3 #### [address] [place], [place] #### VD25H #### [facility] [address] [place] [address] RBC #/vol (Bld) 5.20 10*6/uL Normal 4.40-5.90 [facility] Comment on above: Performed By: #### H EMDF, PT, BMP3M, PHOS3, MG3, CK3 #### [address] #### VD25H #### [facility] [address] [place] [address] WBC #/vol (Bld) 15.4 10*3/uL High 3.6-10.7 [facility] Comment on above: Performed By: #### H EMDF, PT, BMP3M, PHOS3, MG3, CK3 #### [facility] [address] [place] [address] #### VD25H #### [facility] [address] [place] [address] MRI Spine Cervical w/o Contr birgit 07-09-2018 MRI Spine Cervical w/o Contrast Patient Name: KATHYA HOOPER MRI Exam Date/Time 07/09/2018 00:44:49 EDT Exam MRI Spine Cervical w/o Contrast Ordering Physician MD CHEYENNE, BRITTANY BERRY Accession Number [id number] CPT4 Codes 78403 () Reason For Exam CERVICAL SPINE FRACTURE [...] Transcribed Date and Time: 07/09/2018 7:45 Normal [facility] Magnesiumon 07-09-2018 Magnesium mass conc 2.2 mg/dL Normal 1.6-2.3 [facility] Comment on above: Performed By: #### H EMDF, PT, BMP3M, PHOS3, MG3, CK3 #### [facility] [address] [place] [address] #### VD25H #### [facility] [address] [place] [address] Phosphoruson 07-09-2018 Phosphate mass conc 4.0 mg/dL Normal 2.5-4.5 [facility] Comment on above: Performed By: #### H EMDF, PT, BMP3M, PHOS3, MG3, CK3 #### [facility] [address] [place] [address] #### VD25H #### [facility] [address] [place] [address] Prothrombin Timeon 9 INR Coag RelTime (PPP) 1.0 Normal 0.9-1.1 [facility] Comment on above: Result Comment: Yefri [...] EMDF, PT, BMP3M, PHOS3, MG3, CK3 #### [facility] [address] [place] [address] #### VD25H #### [facility] [address] [place] [address] Prothrombin time (PT) Coag time (PPP) 10.3 s Normal 9.0-12.0 [facility] Comment on above: Result Comment: . Performed By: #### H EMDF, PT, BMP3M, PHOS3, MG3, CK3 #### [facility] [address] [place] [address] #### VD25H #### [facility] [address] [place] [address] TS GELon 07-09-2018 TS GEL ABO Group: O Rh, Gel: POS Antibody Screen Gel: NEG Normal [facility] Comment on above: Performed By: #### T SGL #### [facility] [address] [place] [address] Vit D 25-OH, Totalon 019 Vit D 25-OH, Total 23 ng/mL Low 30-100 [facility] Comment on above: Result Comment: Ther apy is based on measurement of Total 25-OHD with the following classification levels: Less than 20 ng/mL: Indicative of Vit D deficiency 20-30 ng/mL: Suggests Vit D insufficiency Optimal: Greater than or equal to 30 ng/mL Test performed by [employer] Competitive Immunoassay, measuring Total Vitamin D, not individual fractions. Performed By: #### H EMDF, PT, BMP3M, PHOS3, MG3, CK3 #### [facility] [address] [place] [address] #### VD25H #### [facility] [address] [place] [address] Hematologyon 01-03-2003 Lymphocytes (Bld) [#/Vol] RECTUM, BIOPSY [...] Cx Nom (U) Culture exhibits no growth. [facility] Work Phone: Vital Signs Date Time Vital Sign Value Performing Clinician Facility 10-02-2023 13:56-0400 Diastolic blood pressure 62 mm[Hg] Fei Farooq MD Work Phone: [facility] 10-02-2023 13:56-0400 Heart rate 104 /min Fei Farooq MD Work Phone: [facility] 10-02-2023 13:56-0400 SaO2% (BldA) [Mass fraction] 94 % Fei Farooq MD Work Phone: [facility] 10-02-2023 13:56-0400 Systolic blood pressure 124 mm[Hg] Fei Farooq MD Work Phone: [facility] 10-02-2023 11:13-0400 Respiratory rate 16 /min Fei Farooq MD Work Phone: [facility] 10-02-2023 09:47-0400 Body mass index (BMI) [Ratio] 26.19 kg/m2 Fei Farooq MD Work Phone: [facility] 10-02-2023 09:47-0400 Body temperature 98.01 [degF] Fei Farooq MD Work Phone: [facility] 10-02-2023 09:47-0400 Body weight 92.53 kg Fei Farooq MD Work Phone: [facility] 05-20-2022 18:30-0500 Body mass index (BMI) [Ratio] 26.32 kg/m2 Abelardo Gombash DO Work Phone: [facility] 05-20-2022 18:30-0500 Body temperature 97.3 [degF] Abelardo Gombash DO Work Phone: [facility] 05-20-2022 18:30-0500 Body weight 92.99 kg Abelardo Gombash DO Work Phone: [facility] 05-20-2022 18:30-0500 Diastolic blood pressure 108 mm[Hg] Abelardo Gombash DO Work Phone: [facility] 05-20-2022 18:30-0500 Heart rate 100 /min Abelardo Gombash DO Work Phone: [facility] 05-20-2022 18:30-0500 Respiratory rate 14 /min Abelardo Gombash DO Work Phone: [facility] 05-20-2022 18:30-0500 SaO2% (BldA) [Mass fraction] 98 % Abelardo Gombash DO Work Phone: [facility] 05-20-2022 18:30-0500 Systolic blood pressure 125 mm[Hg] Abelardo Gombash DO Work Phone: [facility] 05-15-2021 09:40-0500 Body height 188 cm Timothy Micheal DO Work Phone: [facility] [facility] 05-15-2021 09:40-0500 Body mass index (BMI) [Ratio] 23.75 kg/m2 Timothy Micheal DO Work Phone: [facility] 05-15-2021 09:40-0500 Body weight 83.92 kg Timothy Micheal DO Work Phone: [facility] 05-15-2021 09:38-0500 Body temperature 97.59 [degF] Timothy Micheal DO Work Phone: [facility] 05-15-2021 09:38-0500 Diastolic blood pressure 76 mm[Hg] Timothy Micheal DO Work Phone: [facility] 05-15-2021 09:38-0500 Heart rate 102 /min Timothy Micheal DO Work Phone: [facility] 05-15-2021 09:38-0500 Respiratory rate 16 /min Timothy Micheal DO Work Phone: [facility] 05-15-2021 09:38-0500 SaO2% (BldA) [Mass fraction] 99 % Timothy Micheal DO Work Phone: [facility] 05-15-2021 09:38-0500 Systolic blood pressure 115 mm[Hg] Timothy Evanss DO Work Phone: [facility] 03-24-2021 10:20-0500 Respiratory rate 18 /min Brady Nesheim DO Work Phone: [facility] 03-24-2021 10:20-0500 SaO2% (BldA) [Mass fraction] 94 % Brady Nesheim DO Work Phone: [facility] 03-24-2021 08:44-0500 Body temperature 97.7 [degF] Brady Nesheim DO Work Phone: [facility] 03-24-2021 08:44-0500 Diastolic blood pressure 55 mm[Hg] Brady Nesheim DO Work Phone: [facility] 03-24-2021 08:44-0500 Heart rate 85 /min Brady Nesheim DO Work Phone: [facility] 03-24-2021 08:44-0500 Systolic blood pressure 85 mm[Hg] Brady Nesheim DO Work Phone: [facility] 03-20-2021 13:41-0500 Body height 188 cm Brady Nesheim DO Work Phone: [facility] 03-20-2021 11:16-0500 Body mass index (BMI) [Ratio] 23.86 kg/m2 Brady Nesheim DO Work Phone: [facility] 03-20-2021 11:16-0500 Body weight 84.32 kg Brady Nesheim DO Work Phone: [facility] Comment on above: earlene Ingram RN (bed scal e measurement) on 03/20/2021 03-18-2021 15:02-0500 Body temperature 99.5 [degF] Boo Castro MD Work Phone: [facility] 03-18-2021 15:02-0500 Diastolic blood pressure 82 mm[Hg] Boo Castro MD Work Phone: [facility] 03-18-2021 15:02-0500 Heart rate 111 /min Boo Castro MD Work Phone: [facility] 03-18-2021 15:02-0500 Respiratory rate 18 /min Boo Castro MD Work Phone: [facility] 03-18-2021 15:02-0500 SaO2% (BldA) [Mass fraction] 93 % Boo Castro MD Work Phone: [facility] 03-18-2021 15:02-0500 Systolic blood pressure 111 mm[Hg] oBo Castro MD Work Phone: [facility] 10-30-2020 17:10-0400 Diastolic blood pressure 82 mm[Hg] Bethany Clemons MD Work Phone: [facility] Work Phone: 10-30-2020 17:10-0400 Heart rate 110 /min Bethany Clemons MD Work Phone: [facility] Work Phone: 10-30-2020 17:10-0400 Respiratory rate 16 /min Bethany Clemons MD Work Phone: [facility] Work Phone: 10-30-2020 17:10-0400 SaO2% (BldA) [Mass fraction] 99 % Bethany Clemons MD Work Phone: [facility] Work Phone: 10-30-2020 17:10-0400 Systolic blood pressure 125 mm[Hg] Bethany Clemons MD Work Phone: [facility] Work Phone: 10-30-2020 13:02-0400 Body mass index (BMI) [Ratio] 24.65 kg/m2 Bethany Clemons MD Work Phone: [facility] Work Phone: 10-30-2020 13:02-0400 Body temperature 96.91 [degF] Bethany Clemons MD Work Phone: [facility] Work Phone: 10-30-2020 13:02-0400 Body weight 87.09 [...] 21:50-0500 BP Diastolic 71 mm[Hg] Abelardo Gabriel [facility] Work Phone: 06-26-2020 21:50-0500 BP Systolic 118 [...] Work Phone: [facility] Work Phone: NEGATED: Highlighted [id number] 14:34-0500 BMI (Body Mass Index) 22.16 kg/m2 Ana Stevenson [place] [facility] Work Phone: NEGATED: Highlighted [id number] 14:34-0500 Body weight 78.02 kg Ana Peoplesch [employer] [facility] Work Phone: NEGATED: Highlighted [id number] 14:34-0500 Body weight 78 kg Ana Diesch [employer] [facility] Work Phone: NEGATED: Highlighted [id number] 14:34-0500 BP Diastolic 66 mm[Hg] Ana Diesch [employer] [facility] Work Phone: NEGATED: Highlighted [id number] 14:34-0500 BP Systolic 102 mm[Hg] Ana Diesch [employer] [facility] Work Phone: NEGATED: Highlighted [id number] 14:34-0500 Height 187.96 cm Ana Diesch [employer] [facility] Work Phone: NEGATED: Highlighted [id number] 14:34-0500 Height 188 cm Ana Diesch [employer] [facility] Work Phone: NEGATED: Highlighted [id number] 14:34-0500 Pulse (Heart Rate) 104 /min Ana Diesch [employer] [facility] Work Phone: Encounters Encounter Date Encounter Type Care Provider Facility Start: 03-10-2025 ambulatory Renard Burgos OLS Faci lity:[facility] Start: 03-03-2025 ambulatory Renard Burgos OLS Faci lity:[facility] Start: 02-24-2025 ambulatory Renard Burgos OLS Faci lity:[facility] Start: 02-21-2025 ambulatory Renard Burgos OLS Faci lity:[facility] Start: 02-17-2025 ambulatory Renard Burgos OLS Faci lity:[facility] Start: 02-10-2025 ambulatory Renard Burgos OLS Faci lity:[facility] Start: 02-03-2025 Registered Referred Renard Burgos - [facility] Start: 02-03-2025 End: 02-03-2025 ambulatory Renard GARLAND Facility:[facility] Start: 01-27-2025 Registered Referred Renard Burgos - [facility] Start: 01-27-2025 End: 01-27-2025 ambulatory Renard Burgos OLS Facility:[facility] Start: 01-20-2025 Registered Referred Renard Burgos - [facility] Start: 01-20-2025 End: 01-20-2025 ambulatory Renard GARLAND Facility:[facility] Start: 01-13-2025 Registered Referred Renard Amezquitaros - [facility] Start: 01-13-2025 End: 01-13-2025 ambulatory Renard GARLAND Facility:[facility] Start: 01-10-2025 Registered Referred Renard Burgos - [facility] Start: 01-10-2025 End: 01-10-2025 ambulatory Renard GARLAND Facility:[facility] Start: 01-06-2025 Registered Referred Renard Amezquitaros - [facility] Start: 01-06-2025 End: 01-06-2025 ambulatory Renard GARLAND Facility:[facility] Start: 12-31-2024 Registered Referred Renard Burgos - [facility] Start: 12-31-2024 End: 12-31-2024 ambulatory Renard GARLAND Facility:[facility] Start: 12-23-2024 End: 12-23-2024 ambulatory Renard GARLAND -[facility] Start: 12-23-2024 End: 12-23-2024 Departed Referred Renard Burgos -[facility] Start: 12-23-2024 End: 12-23-2024 ambulatory Renard GARLAND Facility:[facility] Start: 12-16-2024 ambulatory Renard GARLAND Faci lity:[facility] Start: 12-16-2024 Registered Referred Renard Amezquitaros - [facility] Start: 12-09-2024 ambulatory Renard GARLAND Faci lity:[facility] Start: 12-09-2024 Registered Referred Renard Burgos - [facility] Start: 12-02-2024 Registered Referred Renard Amezquitaros - [facility] Start: 12-02-2024 End: 12-02-2024 ambulatory Renard GARLAND Facility:[facility] Start: 11-25-2024 Registered Referred Renard Amezquitaros - [facility] Start: 11-25-2024 End: 11-25-2024 ambulatory Renard GARLAND Facility:[facility] Start: 11-18-2024 ambulatory Renard GARLAND Faci lity:[facility] Start: 11-18-2024 Registered Referred Renard Hensleysaros - [facility] Start: 11-11-2024 Registered Referred Renard Amezquitaros - [facility] Start: 11-11-2024 End: 11-11-2024 ambulatory Renard GARLAND Facility:[facility] Start: 11-04-2024 Registered Referred Renard Burgos - [facility] Start: 11-04-2024 End: 11-04-2024 ambulatory Renard GARLAND Facility:[facility] Start: 10-28-2024 Registered Referred Renard Amezquitaros - [facility] Start: 10-28-2024 End: 10-28-2024 ambulatory Renard GARLAND Facility:[facility] Start: 10-21-2024 End: 10-21-2024 ambulatory Renard GARLAND -[facility] Start: 10-21-2024 End: 10-21-2024 Departed Referred Renard Burgos -[facility] Start: 10-21-2024 Registered Referred Renard Amezquitaros - [facility] Start: 10-21-2024 End: 10-21-2024 ambulatory Renard GARLAND Facility:[facility] Start: 10-14-2024 ambulatory Renard GARLAND Faci lity:[facility] Start: 10-14-2024 Registered Referred Renard Amezquitaros - [facility] Start: 10-07-2024 ambulatory Renard GARLAND Faci lity:[facility] Start: 10-07-2024 Registered Referred Renard Burgos - [facility] Start: 09-30-2024 ambulatory Renard GARLAND Faci lity:[facility] Start: 09-30-2024 Registered Referred Renard Burgos - [facility] Start: 09-24-2024 End: 09-24-2024 ambulatory Renard GARLAND -[facility] Start: 09-24-2024 End: 09-24-2024 Departed Referred Renard Burgos -[facility] Start: 09-24-2024 Registered Referred Renard Burgos - [facility] Start: 09-24-2024 End: 09-24-2024 ambulatory Renard GARLAND Facility:[facility] Start: 09-16-2024 End: 09-16-2024 ambulatory Renard GARLAND -[facility] Start: 09-16-2024 End: 09-16-2024 Departed Referred Renard Burgos -[facility] Start: 09-16-2024 Registered Referred Renard Burgos - [facility] Start: 09-16-2024 End: 09-16-2024 ambulatory Renard GARLAND Facility:[facility] Start: 09-11-2024 End: 09-11-2024 ambulatory Renard GARLAND [facility] Work Phone: Start: 09-11-2024 End: 09-11-2024 Departed Referred Renard Burgos -[facility] Start: 09-11-2024 Registered Referred Renard Burgos - [facility] Start: 09-11-2024 End: 09-11-2024 ambulatory Renard GARLAND Facility:[facility] Start: 09-09-2024 End: 09-09-2024 ambulatory Renard GARLAND [facility] Work Phone: Start: 09-09-2024 End: 09-09-2024 Departed Referred Renard Burgos -[facility] Start: 09-09-2024 Registered Referred Renard Burgos - [facility] Start: 09-09-2024 End: 09-09-2024 ambulatory Renard GARLAND Facility:[facility] Start: 09-02-2024 End: 09-02-2024 ambulatory Renard GARLAND [facility] Work Phone: Start: 09-02-2024 End: 09-02-2024 Departed Referred Renard Burgos -[facility] Start: 09-02-2024 Registered Referred Renard Burgos - [facility] Start: 09-02-2024 End: 09-02-2024 ambulatory Renard GARLAND Facility:[facility] Start: 08-26-2024 End: 08-26-2024 ambulatory Renard GARLAND [facility] Work Phone: Start: 08-26-2024 End: 08-26-2024 Departed Referred Renard Burgos -[facility] Start: 08-26-2024 Registered Referred Renard Burgos - [facility] Start: 08-26-2024 End: 08-26-2024 ambulatory Renard GARLAND Facility:[facility] Start: 08-23-2024 End: 08-23-2024 Departed Referred Renard Burgos -[facility] Start: 08-23-2024 Registered Referred Renard Burgos - [facility] Start: 08-23-2024 End: 08-23-2024 ambulatory Renard GARLAND Facility:[facility] Start: 08-19-2024 End: 08-19-2024 ambulatory Renard GARLAND [facility] Work Phone: Start: 08-19-2024 End: 08-19-2024 Departed Referred Renard Burgos -[facility] Start: 08-19-2024 Registered Referred Renard Burgos - [facility] Start: 08-19-2024 End: 08-19-2024 ambulatory Renard GARLAND Facility:[facility] Start: 08-12-2024 End: 08-12-2024 ambulatory Renard GARLAND [facility] Work Phone: Start: 08-12-2024 End: 08-12-2024 Departed Referred Renard Burgos -[facility] Start: 08-12-2024 Registered Referred Renard Burgos - [facility] Start: 08-12-2024 End: 08-12-2024 ambulatory Renard GARLAND Facility:[facility] Start: 08-05-2024 End: 08-05-2024 Departed Referred Renard Burgos -[facility] Start: 08-05-2024 Registered Referred Renard Burgos - [facility] Start: 08-05-2024 End: 08-05-2024 ambulatory Renard GARLAND Facility:[facility] Start: 07-29-2024 End: 07-29-2024 ambulatory Renard GARLAND [facility] Work Phone: Start: 07-29-2024 End: 07-29-2024 Departed Referred Renard Burgos -[facility] Start: 07-29-2024 Registered Referred Renard Burgos - [facility] Start: 07-29-2024 End: 07-29-2024 ambulatory Renard GARLAND Facility:[facility] Start: 07-22-2024 End: 07-22-2024 ambulatory Renard GARALND [facility] Work Phone: Start: 07-22-2024 End: 07-22-2024 Departed Referred Renard Burgos -[facility] Start: 07-22-2024 Registered Referred Renard Burgos - [facility] Start: 07-22-2024 End: 07-22-2024 ambulatory Renard GARLAND Facility:[facility] Start: 07-16-2024 End: 07-16-2024 ambulatory Renard GARLAND [facility] Work Phone: Start: 07-16-2024 End: 07-16-2024 Departed Referred Renard Burgos -[facility] Start: 07-16-2024 Registered Referred Renard Burgos - [facility] Start: 07-15-2024 End: 07-16-2024 ambulatory Renard GARLAND [facility] Work Phone: Start: 07-15-2024 End: 07-15-2024 Departed Referred Renard Hensleysaros -[facility] Start: 07-15-2024 Registered Referred Renard Hensleysaros - [facility] Start: 07-15-2024 End: 07-15-2024 ambulatory Renard GARLAND Facility:[facility] Start: 07-08-2024 End: 07-08-2024 ambulatory Renard GARLAND [facility] Work Phone: Start: 07-08-2024 End: 07-08-2024 Departed Referred Renard Hensleysaros -[facility] Start: 07-08-2024 Registered Referred Renard Hensleysaros - [facility] Start: 07-08-2024 End: 07-08-2024 ambulatory Renard GARLAND Facility:[facility] Start: 07-01-2024 End: 07-01-2024 ambulatory Renard GARLAND [facility] Work Phone: Start: 07-01-2024 End: 07-01-2024 Departed Referred Renard Hensleysaros -[facility] Start: 07-01-2024 Registered Referred Renard Shelliesaros - [facility] Start: 07-01-2024 End: 07-01-2024 ambulatory Renard GARLAND Facility:[facility] Start: 06-27-2024 End: 06-27-2024 ambulatory Renard GARLAND [facility] Work Phone: Start: 06-27-2024 End: 06-27-2024 Departed Referred Renard Hensleysaros -[facility] Start: 06-27-2024 Registered Referred Renard Hensleysaros - [facility] Start: 06-27-2024 End: 06-27-2024 ambulatory Renard GARLAND Facility:[facility] Start: 06-24-2024 End: 06-24-2024 Subsequent hospital visit by physician Rashaad Smith APRN - SIM Work Phone: [facility] Imaging Comment on above: Chronic cough Start: 06-24-2024 End: 06-24-2024 ambulatory DARINKA SARAH [facility] Start: 06-24-2024 End: 06-24-2024 Departed Referred Renard Burgos -[facility] Start: 06-24-2024 Registered Referred Renard Burgos - [facility] Start: 06-24-2024 End: 06-24-2024 ambulatory Renard GARLAND Facility:[facility] Start: 06-17-2024 End: 06-17-2024 ambulatory Renard GARLAND [facility] Work Phone: Start: 06-17-2024 End: 06-17-2024 Departed Referred Renard Burgos -[facility] Start: 06-17-2024 Registered Referred Renard Burgos - [facility] Start: 06-17-2024 End: 06-17-2024 ambulatory Renard GARLAND Facility:[facility] Start: 06-12-2024 End: 09-11-2024 Transcribe Orders Tylerdemarcus Sarah [employer] Work Phone: [facility] Central Scheduling Comment on above: Chronic cough (Prima ry Dx) Start: 06-10-2024 End: 06-10-2024 ambulatory Renard GARLAND [facility] Work Phone: Start: 06-10-2024 End: 06-10-2024 Departed Referred Renard Burgos -[facility] Start: 06-10-2024 Registered [facility] Start: 06-10-2024 End: 06-10-2024 ambulatory Renard GARLAND Facility:[facility] Start: 06-07-2024 End: 06-07-2024 ambulatory Renard GARLAND [facility] Work Phone: Start: 06-07-2024 End: 06-07-2024 Departed Referred Renard Burgos -[facility] Start: 06-07-2024 Registered Referred [facility] Start: 06-07-2024 End: 06-07-2024 ambulatory Renard GARLAND Facility:[facility] Start: 06-03-2024 End: 06-03-2024 ambulatory Renard GARLAND [facility] Work Phone: Start: 06-03-2024 End: 06-03-2024 Departed Referred [facility] Start: 06-03-2024 End: 06-03-2024 ambulatory Renard GARLAND Facility:[facility] Start: 05-27-2024 End: 05-27-2024 Departed Referred Renard Burgos -[facility] Start: 05-27-2024 End: 05-27-2024 ambulatory Renard GARLAND Facility:[facility] Start: 05-20-2024 End: 05-20-2024 Departed Referred Renard Burgos -[facility] Start: 05-20-2024 End: 05-20-2024 ambulatory Renard GARLAND Facility:[facility] Start: 05-13-2024 End: 05-13-2024 Departed Referred Renard Burgos -[facility] Start: 05-13-2024 End: 05-13-2024 ambulatory [facility] G[facility] [facility] Start: 05-06-2024 End: 05-06-2024 Departed Referred Renard Burgos -[employer] [employer] Start: 05-06-2024 End: 05-06-2024 ambulatory Renard GARLAND Facility:[facility] Start: 05-03-2024 End: 05-03-2024 Telephone encounter Renard Burgos Work Phone: [facility] Clinical Communication Comment on above: Other Start: 04-29-2024 End: 04-29-2024 Departed Referred Renard Burgos -[employer] Start: 04-29-2024 End: 04-29-2024 ambulatory Renard GARLAND Facility:[facility] Start: 04-22-2024 End: 04-22-2024 Departed Referred Renard Burgos -[employer] [employer] Start: 04-22-2024 End: 04-22-2024 ambulatory Renard GARLAND Facility:[facility] Start: 04-15-2024 End: 04-15-2024 Departed Referred Renard Burgos -[facility] [employer] Start: 04-15-2024 End: 04-15-2024 ambulatory Renard GARLAND Facility:[facility] Start: 04-08-2024 ambulatory Renard GARLAND Faci lity:[facility] Start: 04-08-2024 Registered Referred Renard Burgos - [employer] [employer] Start: 04-01-2024 ambulatory Renard GARLAND Faci lity:[facility] Start: 04-01-2024 Registered Referred Renard Burgos - [employer] Start: 03-25-2024 End: 03-25-2024 Departed Referred Renard Burgos -[facility] [employer] Start: 03-25-2024 End: 03-25-2024 ambulatory Renard GARLAND Facility:[facility] Start: 03-18-2024 End: 03-18-2024 Departed Referred Renard Burgos -[facility] [employer] Start: 03-18-2024 End: 03-18-2024 ambulatory Renard GARLAND Facility:[facility] Start: 03-11-2024 End: 03-11-2024 Departed Referred Renard Burgos -[employer] [employer] Start: 11-22-2023 End: 11-22-2023 ambulatory RENARD BURGOS [facility] Start: 11-22-2023 End: 11-22-2023 Subsequent hospital visit by physician Renard Burgos Work Phone: [facility] X-ray Imaging Comment on above: Dysphagia, oropharyn geal phase; Feeding difficulties Start: 10-16-2023 End: 01-15-2024 Transcribe Orders Renard Burgos Work Phone: [facility] Central Scheduling Comment on above: Dysphagia, oropharyn geal phase (Primary Dx); Feeding difficulties Start: 10-02-2023 End: 10-02-2023 Emergency department patient visit Fei Farooq MD Work Phone: [facility] ED Comment on above: Dyspnea, unspecified type (Primary Dx) Start: 08-07-[address] [facility] Start: 07-31-2023 End: 07-31-2023 ambulatory [facility] Work Phone: Start: 07-31-2023 End: 07-31-2023 Departed Referred [facility] [employer] Start: 07-31-2023 Registered Referred [facility] [facility] Start: 07-24-2023 End: 07-24-2023 ambulatory [facility] Work Phone: Start: 07-24-2023 End: 07-24-2023 [facility] Start: 07-17-2023 End: 07-17-2023 ambulatory [facility] Work Phone: Start: 07-17-2023 End: 07-17-2023 [facility] Start: 07-17-2023 Registered Referred [facility] [facility] Start: 07-10-2023 End: 07-10-2023 ambulatory [facility] Work Phone: Start: 07-10-2023 End: 07-10-2023 Departed Referred [facility] [employer] Start: 07-10-2023 Registered Referred [facility] Start: 07-03-2023 End: 07-03-2023 ambulatory [facility] Work Phone: Start: 07-03-2023 End: 07-03-2023 [facility] Start: 07-03-2023 Registered Referred [facility] [facility] Start: 06-26-2023 [facility] Start: 06-19-2023 End: 06-19-2023 ambulatory [facility] Work Phone: Start: 06-19-2023 End: 06-19-2023 Departed Referred [facility] Start: 06-19-2023 [facility] Start: 06-12-2023 End: 06-12-2023 ambulatory [facility] Work Phone: Start: 06-12-2023 End: 06-12-2023 [facility] Start[facility] 06-12-2023 [facility] Start: 06-05-2023 End: 06-05-2023 ambulatory [facility] Work Phone: Start: 06-05-2023 End: 06-05-2023 [facility] Start: 06-05-2023 [facility] Start: 05-29-2023 End: 05-29-2023 [facility] Start: 05-29-2023 [facility] Start: 05-22-2023 End: 05-22-2023 ambulatory [facility] Work Phone: Start: 05-22-2023 End: 05-22-2023 [facility] Start[facility] 05-22-2023 [facility] Start: 05-15-2023 End: 05-15-2023 [facility] Start[facility] 05-15-2023 [facility] Start: 05-08-2023 End: 05-08-2023 ambulatory [facility] Work Phone: Start: 05-08-2023 End: 05-08-2023 [facility] Start: 04-17-2023 End: 04-17-2023 ambulatory [facility] Work Phone: Start: 04-17-2023 End: 04-17-2023 Departed Referred [facility] Start: 04-17-2023 Registered Referred [facility] [employer] Start: 04-14-2023 End: 04-14-2023 ambulatory [facility] Work Phone: Start: 04-14-2023 End: 04-14-2023 Departed Referred [facility] [employer] Start: 04-14-2023 Registered Referred [facility] [facility] Start: 04-10-2023 End: 04-10-2023 [facility] Start: 04-10-2023 Registered Referred [facility] [facility] Start: 04-03-2023 End: 04-03-2023 ambulatory [facility] Work Phone: Start: 04-03-2023 End: 04-03-2023 Departed Referred [facility] Start: 04-03-2023 Registered Referred [facility] [facility] Start: 03-27-2023 End: 03-27-2023 ambulatory [facility] Work Phone: Start: 03-27-2023 End: 03-27-2023 [facility] Start: 03-27-2023 Registered Referred [facility] [facility] Start: 03-20-2023 End: 03-20-2023 ambulatory [facility] Work Phone: Start: 03-20-2023 End: 03-20-2023 Departed Referred [facility] Start: 03-20-2023 Registered Referred [facility] [employer] Start: 03-16-2023 End: 03-16-2023 ambulatory [facility] Work Phone: Start: 03-16-2023 End: 03-16-2023 Departed Referred [facility] [facility] Start: 03-16-2023 [facility] Start: 03-13-2023 End: 03-13-2023 ambulatory [facility] Work Phone: Start: 03-13-2023 End: 03-13-2023 [facility] Start: 03-06-2023 End: 03-06-2023 ambulatory [facility] Work Phone: Start: 03-06-2023 End: 03-06-2023 [facility] Start[facility] 03-06-2023 [facility] Start: 02-27-2023 End: 02-27-2023 ambulatory [facility] Work Phone: Start: 02-27-2023 End: 02-27-2023 [facility] Start: 02-20-2023 End: 02-20-2023 ambulatory [facility] Work Phone: Start: 02-20-2023 End: 02-20-2023 [facility] Start: 02-20-2023 [facility] Start: 02-13-2023 End: 02-13-2023 ambulatory [facility] Work Phone: Start: 02-13-2023 End: 02-13-2023 [facility] Start: 02-13-2023 [facility] Start: 02-06-2023 End: 02-06-2023 ambulatory [facility] Work Phone: Start: 02-06-2023 End: 02-06-2023 [facility] Start: 02-06-2023 [facility] Start: 01-30-2023 End: 01-30-2023 ambulatory [facility] Work Phone: Start: 01-30-2023 End: 01-30-2023 Departed Referred [facility] [employer] Start: 01-30-2023 Registered Referred [facility] [facility] Start: 01-23-2023 End: 01-23-2023 Departed Referred [facility] [employer] Start: 01-23-2023 Registered Referred [facility] [employer] [facility] Start: 01-16-2023 End: 01-16-2023 ambulatory [facility] Work Phone: Start: 01-16-2023 End: 01-16-2023 [facility] Start: 01-16-2023 Registered Referred [facility] [facility] Start: 01-09-2023 End: 01-09-2023 [facility] Start: 01-09-2023 Registered Referred [facility] [facility] Start: 01-03-2023 End: 01-03-2023 ambulatory [facility] Work Phone: Start: 01-03-2023 End: 01-03-2023 [facility] Start: 01-03-2023 Registered Referred [facility] [employer] [facility] Start: 12-26-2022 End: 12-26-2022 ambulatory [facility] Work Phone: Start: 12-26-2022 End: 12-26-2022 [facility] Start: 12-26-2022 [facility] Start: 12-19-2022 End: 12-19-2022 ambulatory [facility] Work Phone: Start: 12-19-2022 End: 12-19-2022 Departed Referred [facility] [employer] Start: 12-19-2022 Registered Referred [facility] [facility] Start: 12-12-2022 End: 12-12-2022 [facility] Start: 12-12-2022 [facility] Start: 12-05-2022 End: 12-05-2022 ambulatory [facility] Work Phone: Start: 12-05-2022 End: 12-05-2022 [facility] Start[facility] 12-05-2022 [facility] Start: 11-28-2022 End: 11-28-2022 ambulatory [facility] Work Phone: Start: 11-28-2022 End: 11-28-2022 [facility] Start: 11-28-2022 [facility] Start: 11-21-2022 End: 11-21-2022 ambulatory [facility] Work Phone: Start: 11-21-2022 End: 11-21-2022 [facility] Start: 11-21-2022 [facility] Start: 11-14-2022 End: 11-14-2022 ambulatory [facility] Work Phone: Start: 11-14-2022 End: 11-14-2022 [facility] Start[facility] 11-14-2022 [facility] Start: 11-07-2022 [facility] Start: 10-31-2022 End: 10-31-2022 ambulatory [facility] Work Phone: Start: 10-31-2022 End: 10-31-2022 Departed Referred [facility] [employer] [facility] Start: 10-31-2022 Registered Referred [facility] Start: 10-24-2022 End: 10-24-2022 ambulatory [facility] Work Phone: Start: 10-24-2022 End: 10-24-2022 Departed Referred [facility] [employer] Start: 10-24-2022 Registered Referred [facility] [facility] Start: 10-17-2022 End: 10-17-2022 Departed Referred [facility] [employer] Start: 10-17-2022 Registered Referred [facility] Start: 10-10-2022 End: 10-10-2022 ambulatory [facility] Work Phone: Start: 10-10-2022 End: 10-10-2022 Departed Referred [facility] [employer] Start: 10-10-2022 Registered Referred [facility] [employer] [facility] Start: 10-03-2022 End: 10-03-2022 ambulatory [facility] Work Phone: Start: 10-03-2022 End: 10-03-2022 [facility] Start: 09-19-2022 End: 09-19-2022 Departed Referred [facility] Start: 09-19-2022 Registered Referred [facility] [employer] [facility] Start: 09-12-2022 End: 09-12-2022 ambulatory [facility] Work Phone: Start: 09-12-2022 End: 09-12-2022 Departed Referred [facility] [employer] [facility] Start: 09-05-2022 End: 09-05-2022 Departed Referred [facility] [facility] Start: 09-05-2022 Registered Referred [facility] Start: 08-29-2022 End: 08-29-2022 Departed Referred [facility] [facility] Start: 08-29-2022 Registered Referred [facility] Start: 08-22-2022 End: 08-22-2022 ambulatory [facility] Work Phone: Start: 08-22-2022 End: 08-22-2022 Departed Referred [facility] Start: 08-22-2022 Registered Referred [facility] Start: 08-15-2022 End: 08-15-2022 ambulatory [facility] Work Phone: Start: 08-15-2022 End: 08-15-2022 [facility] Start[facility] 08-15-2022 Registered Referred [facility] Start: 08-08-2022 End: 08-08-2022 Departed Referred [facility] Start: 08-08-2022 Registered Referred [facility] Start: 08-01-2022 End: 08-01-2022 ambulatory [facility] Work Phone: Start: 08-01-2022 End: 08-01-2022 Departed Referred [facility] Start: 08-01-2022 [facility] Start: 07-25-2022 End: 07-25-2022 ambulatory [facility] Work Phone: Start: 07-25-2022 End: 07-25-2022 Departed Referred [facility] Start: 07-25-2022 [facility] Start: 07-19-2022 End: 07-19-2022 Departed Referred [facility] Start: 07-19-2022 [facility] Start: 07-18-2022 End: 07-18-2022 ambulatory [facility] Work Phone: Start: 07-18-2022 End: 07-18-2022 Departed Referred [facility] [employer] Start: 07-18-2022 Registered Referred [facility] Start: 07-11-2022 End: 07-11-2022 ambulatory [facility] Work Phone: Start: 07-11-2022 End: 07-11-2022 [facility] Start: 07-11-2022 [facility] Start: 07-04-2022 End: 07-04-2022 [facility] Start[facility] 07-04-2022 [facility] Start: 06-27-2022 End: 06-27-2022 ambulatory [facility] Work Phone: Start: 06-27-2022 End: 06-27-2022 [facility] Start: 06-27-2022 [facility] Start: 06-20-2022 End: 06-20-2022 ambulatory [facility] Work Phone: Start: 06-20-2022 End: 06-20-2022 [facility] Start[facility] 06-20-2022 [facility] Start: 06-13-2022 End: 06-13-2022 ambulatory [facility] Work Phone: Start: 06-13-2022 End: 06-13-2022 [facility] Start: 06-13-2022 [facility] Start: 06-06-2022 End: 06-06-2022 [facility] Start: 06-06-[address] Start: 05-30-2022 End: 05-30-2022 ambulatory [facility] Work Phone: Start: 05-30-2022 End: 05-30-2022 Departed Referred [facility] Start: 05-23-2022 End: 05-23-2022 ambulatory [facility] Work Phone: Start: 05-23-2022 End: 05-23-2022 Departed [facility] Start: 05-23-2022 Registered Referred [facility] Start: 05-20-2022 End: 05-20-2022 Emergency department patient visit Abelardo A Gabriel GOEMZ Work Phone: [facility] ED Comment on above: Dislodged gastrostom y tube (Primary Dx) Start: 05-16-2022 End: 05-16-2022 [facility] Start: 05-16-[address] [facility] Start: 05-09-2022 End: 05-09-2022 ambulatory [facility] Work Phone: Start: 05-09-2022 End: 05-09-2022 [facility] Start: 05-09-[address] [facility] Start: 05-03-2022 End: 05-03-2022 ambulatory [facility] Work Phone: Start: 05-03-2022 End: 05-03-2022 [facility] Start: 05-03-[address] [facility] Start: 04-26-2022 End: 04-26-2022 Departed Referred [facility] Start: 04-26-2022 Registered Referred [facility] Start: 04-18-2022 End: 04-18-2022 ambulatory [facility] Work Phone: Start: 04-18-2022 End: 04-18-2022 [facility] Start: 04-18-2022 Registered Referred [facility] Start: 04-14-2022 End: 04-14-2022 ambulatory [facility] Work Phone: Start: 04-14-2022 End: 04-14-2022 [facility] Start[facility] 04-14-2022 [facility] Start: 04-11-2022 End: 04-11-2022 ambulatory [facility] Work Phone: Start: 04-11-2022 End: 04-11-2022 [facility] Start: 04-11-2022 Registered Referred [facility] Start: 04-04-2022 End: 04-04-2022 ambulatory [facility] Work Phone: Start: 04-04-2022 End: 04-04-2022 [facility] Start: 04-04-2022 Registered Referred [facility] Start: 03-28-2022 End: 03-28-2022 ambulatory [facility] Work Phone: Start: 03-28-2022 End: 03-28-2022 [facility] Start: 03-28-2022 Registered Referred [facility] Start: 03-21-2022 End: 03-21-2022 ambulatory [facility] Work Phone: Start: 03-21-2022 End: 03-21-2022 Departed Referred [facility] Start: 03-21-2022 Registered Referred [facility] Start: 03-14-2022 End: 03-14-2022 Departed Referred [facility] Start: 03-14-2022 Registered Referred [facility] Start: 2022 End: 2022 ambulatory [facility] Work Phone: Start: 2022 End: 2022 [facility] Start: 2022 Registered Referred [facility] Start: 02-28-2022 End: 02-28-2022 [facility] Start[facility] 02-28-2022 Registered Referred [facility] Start: 02-21-2022 End: 02-21-2022 ambulatory [facility] Work Phone: Start: 02-21-2022 End: 02-21-2022 [facility] Start: 02-21-2022 Registered Referred [facility] Start: 02-14-2022 End: 02-14-2022 ambulatory [facility] Work Phone: Start: 02-14-2022 End: 02-14-2022 Departed Referred [facility] Start: 02-14-2022 Registered Referred [facility] Start: 02-07-2022 End: 02-07-2022 ambulatory [facility] Work Phone: Start: 02-07-2022 End: 02-07-2022 [facility] Start: 02-07-2022 Registered Referred [facility] Start: 01-31-2022 End: 01-31-2022 ambulatory [facility] Work Phone: Start: 01-31-2022 End: 01-31-2022 Departed Referred [facility] Start: 01-31-2022 Registered Referred [facility] Start: 01-24-2022 End: 01-24-2022 ambulatory [facility] Work Phone: Start: 01-24-2022 End: 01-24-2022 [facility] Start[facility] 01-24-2022 [facility] Start: 01-17-2022 End: 01-17-2022 [facility] Start[facility] 01-17-2022 [facility] Start: 01-10-2022 End: 01-10-2022 ambulatory [facility] Work Phone: Start: 01-10-2022 End: 01-10-2022 [facility] Start: 01-10-2022 [facility] Start: 01-04-2022 End: 01-04-2022 ambulatory [facility] Work Phone: Start: 01-04-2022 End: 01-04-2022 [facility] Start: 01-04-2022 [facility] Start: 12-27-2021 End: 12-27-2021 ambulatory [facility] Work Phone: Start: 12-27-2021 End: 12-27-2021 [facility] Start[facility] 12-27-2021 [facility] Start: 12-20-2021 End: 12-20-2021 ambulatory [facility] Work Phone: Start: 12-20-2021 End: 12-20-2021 Departed Referred [facility] Start: 12-20-2021 [facility] Start: 12-13-2021 End: 12-13-2021 Departed Referred [facility] Start: 12-13-2021 [facility] Start: 12-06-2021 End: 12-06-2021 ambulatory [facility] Work Phone: Start: 12-06-2021 End: 12-06-2021 [facility] Start: 12-06-2021 [facility] Start: 11-29-2021 End: 11-29-2021 ambulatory [facility] Work Phone: Start: 11-29-2021 End: 11-29-2021 Departed Referred [facility] Start: 11-29-2021 Registered Referred [facility] Start: 11-22-2021 End: 11-22-2021 Departed Referred [facility] Start: 11-22-2021 Registered Referred [facility] Start: 11-15-2021 End: 11-15-2021 Departed Referred [facility] Start: 11-15-2021 Registered Referred [facility] Start: 11-08-2021 End: 11-08-2021 Departed Referred [facility] Start: 10-25-2021 Registered Referred [facility] Start: 10-18-2021 [facility] Start: 10-11-2021 Registered Referred [facility] Start: 10-04-2021 Registered Referred [facility] Start: 09-28-2021 End: 09-28-2021 [facility] Start: 09-28-2021 [facility] Start: 09-20-2021 End: 09-20-2021 [facility] Start: 09-20-2021 [facility] Start: 09-13-2021 End: 09-13-2021 [facility] Start: 09-13-2021 [facility] Start: 09-06-2021 End: 09-06-2021 [facility] Start: 09-06-2021 [facility] Start: 08-30-2021 End: 08-30-2021 [facility] Start: 08-30-2021 Registered Referred [facility] Start: 08-23-2021 End: 08-23-2021 [facility] Start: 08-23-2021 [facility] Start: 08-18-2021 End: 08-18-2021 [facility] Start: 08-18-2021 [facility] Start: 08-16-2021 End: 08-16-2021 [facility] Start: 08-16-2021 [facility] Start: 08-09-2021 End: 08-09-2021 [facility] Start: 08-02-2021 End: 08-02-2021 Departed Referred [facility] Start: 08-02-2021 Registered Referred [facility] Start: 07-26-2021 End: 07-26-2021 Departed Referred [facility] Start: 07-26-2021 [facility] Start: 07-19-2021 End: 07-19-2021 [facility] Start: 07-19-2021 Registered Referred [facility] Start: 07-12-2021 End: 07-12-2021 [facility] Start: 07-05-2021 End: 07-05-2021 [facility] Start: 07-05-2021 [facility] Start: 06-28-2021 End: 06-28-2021 [facility] Start: 06-28-2021 Registered Referred [facility] Start: 06-21-2021 End: 06-21-2021 [facility] Start: 06-21-2021 [facility] Start: 06-14-2021 Registered Referred [facility] Start: 06-07-2021 End: 06-07-2021 Departed Referred [facility] Start: 06-07-2021 Reg[facility] Start: 05-31-2021 End: 05-31-2021 [facility] Start: 05-31-2021 Registered Referred [facility] Start: 05-24-2021 End: 05-24-2021 [facility] Start: 05-17-2021 [facility] Start: 05-15-2021 End: 05-15-2021 Emergency department patient visit Timothy Burton DO Work Phone: [facility] Comment on above: PEG tube malfunction (HCC) (Primary Dx) Start: 05-14-2021 Registered Referred [facility] Start: 05-10-2021 Registered Referred [facility] Start: 05-03-2021 [facility] Start: 04-26-2021 Reg[facility] Start: 04-19-2021 Reg[facility] Start: 04-12-2021 Reg[facility] Start: 04-07-2021 Registered [facility] Start: 03-19-2021 End: 03-24-2021 Evaluation and management of inpatient Brady Desai DO Work Phone: [facility] Comment on above: Respiratory syncytia l virus (RSV) (Primary Dx); Hypoxia Start: 03-18-2021 End: 03-18-2021 Emergency department patient visit Boo Castro MD Work Phone: [facility] Comment on above: Respiratory syncytia l virus (RSV) (Primary Dx); Hypoxia Start: 10-30-2020 End: 10-30-2020 Emergency department patient visit Bethany Clemons MD Work Phone: [facility] Comment on above: Feeding tube dysfunc tion, initial encounter (Primary Dx) Start: 09-22-2020 End: 09-22-2020 Emergency department patient visit Elizabeth Moura MD Work Phone: [facility] Comment on above: PEG tube malfunction (HCC) (Primary Dx) Start: 06-26-2020 End: 06-26-2020 Emergency department patient visit Abelardo Rios Work Phone: [facility] Comment on above: PEG tube malfunction (HCC) (Primary Dx) Start: 05-22-2019 End: 05-22-2019 Patient encounter procedure Jarvis Kendall MD Work Phone: [facility] Work Phone: Start: 05-22-2019 End: 05-22-2019 Pt evaluation Jarvis Kendall MD Work Phone: [facility] Work Phone: Start: 05-16-2019 End: 05-16-2019 Emergency department patient visit Elizabeth Moura MD Work Phone: [facility] ED Comment on above: Contusion of right h ip, initial encounter (Primary Dx) Start: 08-15-2018 Evaluation and management of inpatient UNKNOWN PROVIDER [facility] Start: 07-08-2018 Evaluation and management of inpatient JORDAN GEUBE [facility] Start: 01-02-2003 End: 01-02-2003 Patient encounter procedure Beni Vera Work Phone: [facility] Start: 01-02-2003 Results Only Beni Cappsr Work Phone: [facility] Procedures Date Procedure Procedure Detail Performing [...] 12 lds trcg only w/o i&r Helen SCHUMACHER-Kev Work Phone: Start: 10-02-2023 Ct head/brain w/o [...] EMDF, PT, BMP3M, PHOS3, MG3, CK3 #### [facility] [address], [place] #### [id number] #### [facility] [address] [place] [address] Start: 07-27-2018 Microscopic examinat ion of blood, culture Comment on above: Order Comment: Speci men Source Comment:Blood Performed By: #### H EMDF, PT, BMP3M, PHOS3, MG3, CK3 #### [facility] [address], [place] #### [id number] #### [facility] [address] [place] [address] Start: 07-19-2018 Microscopic examinat ion of blood, culture Comment on above: Order Comment: Speci men Source Comment:Blood Performed By: #### H EMDF, PT, BMP3M, PHOS3, MG3, CK3 #### [facility] [address], [place] #### [id number] #### [facility] [address] [place] [address] Start: 01-02-2003 CONVERTED SURGICAL PATHOLOGY Beni Vera [...] (1 - 1-dose 75+ series) [facility] Start: 01-10-2027 DTaP/Tdap/Td vaccine (2 - Td or Tdap) DTaP/Tdap/Td vaccine (2 - Td or Tdap) [facility] Start: 01-10-2027 DTaP/Tdap/Td vaccine (2 - Td) DTaP/Tdap/Td vaccine (2 - Td) [facility] Work Phone: Start: 01-10-2027 DTaP/Tdap/Td Vaccine s (2 - Td or Tdap) DTaP/Tdap/Td Vaccines (2 - Td or Tdap) [facility] Start: 02-24-2025 Registered Referred Registered [facility] Start: 02-21-2025 Registered Referred Registered [facility] Start: 02-17-2025 Registered Referred Registered [facility] Start: 02-10-2025 Registered Referred Registered [facility] Start: 12-30-2024 Influenza vaccination Influenz a Vaccine (Season Ended) [facility] Start: 03-22-2024 Diabetes mellitus screening Diabetes Screening [facility] Start: 12-31-2023 COVID-19 Vaccine ( season) COVID-19 Vaccine ( season) [facility] Start: 12-31-2023 COVID-19 Vaccine ( season) COVID-19 Vaccine ( season) [facility] Start: 12-31-2023 COVID-19 Vaccine ( season) COVID-19 Vaccine ( season) [facility] Start: 12-31-2023 Influenza vaccination [facility] Start: 01-30-2023 Bacteria identified in Urine by Culture Urine Culture [facility] Start: 01-30-2023 [facility] Start: 12-30-2022 COVID-19 Vaccine ( season) COVID-19 Vaccine ( season) [facility] Start: 2022 Pneumococcal 0-64 ye ars Vaccine (2 of 2 - PPSV23) Pneumococcal 0-64 years Vaccine (2 of 2 - PPSV23) [facility] Start: 2022 Pneumococcal 0-64 ye ars Vaccine (2 of 2) Pneumococcal 0-64 years Vaccine (2 of 2) [facility] Work Phone: Start: 2022 Pneumococcal Vaccine : 65+ Years (2 of 2 - PCV) Pneumococcal Vaccine: 65+ Years (2 of 2 - PCV) [facility] Start: 12-30-2021 Influenza vaccination Influenza Vacc ine (#1) [facility] Start: 12-30-2020 Influenza vaccination [facility] Start: 12-31-2019 Influenza vaccination Flu vaccine (# 1) [facility] Work Phone: Start: 08-18-2019 A1C test (Diabetic o r Prediabetic) A1C test (Diabetic or Prediabetic) [facility] Work Phone: Start: 08-18-2019 HbA1c (Bld) [Mass fraction] A1C test (Diabetic or Prediabetic) [facility] Work Phone: Start: 08-18-2019 Hemoglobin A1c measurement A1C test (Diabetic or Prediabetic) [facility] Start: 05-22-2019 End: 05-22-2019 Appointment Appointment [facility] Work Phone: Start: 02-07-2019 Lipid panel Lipid screen [facility] Start: 02-07-2019 Lipid screen [facility] Work Phone: Start: 12-30-2018 Influenza vaccination Flu vaccine (# 1) [facility] Work Phone: Start: 01-10-2018 Pneumococcal Vaccine : 50+ Years (2 of 2 - PCV) Pneumococcal Vaccine: 50+ Years (2 of 2 - PCV) [facility] Start: 01-10-2018 Pneumococcal Vaccine : 65+ Years (2 - PCV) Pneumococcal Vaccine: 65+ Years (2 - PCV) [facility] Start: 2017 RSV Immunization age d 60 or older (1 - 1-dose 60+ series) RSV Immunization aged 60 or older (1 - 1-dose 60+ series) [facility] Start: 2007 Colon cancer screen colonoscopy Colon cancer screen colonoscopy [facility] Work Phone: Start: 2007 Screening for malign ant neoplasm of colon Colon cancer screen colonoscopy [facility] Work Phone: Start: 2007 Shingles Vaccine (1 of 2) Shingles Vaccine (1 of 2) [facility] Start: 2007 Zoster Vaccines (1 o f 2) Zoster Vaccines (1 of 2) [facility] Start: 2002 Screening for malign ant neoplasm of colon Colon cancer screen colonoscopy [facility] Start: 1976 Hepatitis A Vaccines (1 of 2 - Risk 2-dose series) Hepatitis A Vaccines (1 of 2 - Risk 2-dose series) [facility] Start: 1975 Hepatitis C screening Hepatitis C Sc reening [facility] Start: 1969 COVID-19 Vaccine (1) COVID-19 Vaccin e (1) [facility] Start: 1969 Depression Monitoring Depression Mon [facility] Start: 1969 Depression Screen Depression Screen [facility] Start: 1962 COVID-19 Vaccine (1) COVID-19 Vaccin e (1) [facility] Start: 1957 COVID-19 Vaccine (#1) COVID-19 Vacci ne (#1) [facility] Start: 1957 Annual wellness visit Medicare Initial Physical (IPPE) [facility] Start: 1957 Hepatitis B Vaccines (1 of 3 - 3-dose series) Hepatitis B Vaccines (1 of 3 - 3-dose series) [facility] Start: 1957 Lipid panel Lipid Panel [facility] Start: 1957 Screening for malign ant neoplasm of colon [facility] Basic metabolic 2000 panel - Serum or Plasma Basic Metabolic Panel Lab Routine Daily until discontinued starting 03/23/2021, 2 completed [employer] Work Phone: Comment on above: Daily until disconti nued starting 03/23/2021, 2 completed CBC W Auto Different ial panel - Blood CBC Auto Differential Lab Routine Daily until discontinued starting 03/23/2021, 2 completed [employer] Work Phone: Comment on above: Daily until disconti nued starting 03/23/2021, 2 completed End: 06-24-2024 CT Chest WO contrast [employer] Work Phone: Comment on above: Once for 1 Occurrenc es starting 06/24/2024 until 06/24/2024 Culture, Blood 2 Culture, Blood 2 Microbiology STAT 03/19/2021 6:26 PM EST [employer] Work Phone: End: 03-20-2021 Culture, Respiratory Culture, Respiratory Microbiology Routine One Time for 1 Occurrences starting 03/20/2021 until 03/20/2021 [employer] Work Phone: Comment on above: One Time for 1 Occur rences starting 03/20/2021 until 03/20/2021 EKG 12 Lead EKG 12 Lead ECG STAT 03/18/2021 3:20 PM EST [employer] Work Phone: Feeding Tube Feeding Tube Pro cedures Routine 10/30/2020 2:22 PM EDT [employer] Work Phone: End: 09-22-2020 FL WATER SOLUBLE ENEMA W OR WO KUB FL WATER SOLUBLE ENEMA W OR WO KUB Imaging STAT Once for 1 Occurrences starting 09/22/2020 until 09/22/2020 [employer] Work Phone: Comment on above: Once for 1 Occurrenc es starting 09/22/2020 until 09/22/2020 End: 03-23-2021 Glucose [Mass/volume] in Serum or Plasma POCT GLUCOSE Point of Care Testing Routine Now Then Every 6hr for 7 Occurrences starting 03/21/2021 until 03/23/2021 [employer] Work Phone: Comment on above: Now Then Every 6hr f or 7 Occurrences starting 03/21/2021 until 03/23/2021 High Frequency Chest Wall Oscillation (HFCWO) High Frequency Chest Wall Oscillation (HFCWO) Respiratory Care Routine (respiratory use only) until discontinued starting 03/22/2021 [employer] Work Phone: Comment on above: (respirato ry use only) until discontinued starting 03/22/2021 End: 03-20-2021 Legionella Antigen, Urine Legionella Antigen, Urine Microbiology Routine One Time for 1 Occurrences starting 03/20/2021 until 03/20/2021 [employer] Work Phone: Comment on above: One Time for 1 Occur rences starting 03/20/2021 until 03/20/2021 Microscopic examinat ion of blood, culture Culture, Blood Microbiology STAT 03/19/2021 6:26 PM EST [employer] Work Phone: End: 03-20-2021 Microscopic observation [Identifier] in Unspecified specimen by Gram stain Gram Stain Microbiology Routine Once for 1 Occurrences starting 03/20/2021 until 03/20/2021 [employer] Work Phone: Comment on above: Once for 1 Occurrenc es starting 03/20/2021 until 03/20/2021 Oxygen therapy [[facility] Data Set] Initiate Oxygen Therapy Protocol Respiratory Care Routine Daily until discontinued starting 03/20/2021 [employer] Work Phone: Comment on above: Daily until disconti nued starting 03/20/2021 Patient Education \cps-sql1\CPS_ PtEducati on\CDC_FALL_PREVENTION. pdf, \cps-sql1\CPS_PtEducati on\quitting_smoking_[id number].pdf [facility] Work Phone: RT Communication Order RT Commun ication Order Respiratory Care STAT Daily until discontinued starting 03/18/2021 [employer] Work Phone: Comment on above: Daily until disconti nued starting 03/18/2021 RT Communication Order RT Commun ication Order Respiratory Care Routine Daily until discontinued starting 03/20/2021 [employer] Work Phone: Comment on above: Daily until disconti nued starting 03/20/2021 End: 03-20-2021 STREP PNEUMONIAE ANTIGEN STREP PNEUMONIAE ANTIGEN Microbiology Routine One Time for 1 Occurrences starting 03/20/2021 until 03/20/2021 [facility] Work Phone: Comment on above: One Time for 1 Occur rences starting 03/20/2021 until 03/20/2021 End: 03-18-2021 Urinalysis Urinalysis Lab STAT One Time for 1 Occurrences starting 03/18/2021 until 03/18/2021 [facility] Work Phone: Comment on above: One Time for 1 Occur rences starting 03/18/2021 until 03/18/2021 End: 03-18-2021 Urine Drug Screen Urine Drug Screen Lab STAT One Time for 1 Occurrences starting 03/18/2021 until 03/18/2021 [facility] Work Phone: Comment on above: One Time for 1 Occur rences starting 03/18/2021 until 03/18/2021 End: 09-22-2020 XR ABDOMEN (KUB) (SINGLE AP VIEW) XR ABDOMEN (KUB) (SINGLE AP VIEW) Imaging Routine Once for 1 Occurrences starting 09/22/2020 until 09/22/2020 [facility] Work Phone: Comment on above: Once for 1 Occurrenc es starting 09/22/2020 until 09/22/2020 Immunizations Immunization Date Immunization Notes Care Provider Fa [facility] 02-02-2021 influenza virus vacc ine, unspecified formulation Rashaad Smith [employer] Work Phone: [facility] 01-10-2017 pneumococcal polysaccharide vaccine, 23 valent Eilzabeth Moura MD Work Phone: [facility] 01-10-2017 tetanus toxoid, redu delia diphtheria toxoid, and acellular pertussis vaccine, adsorbed Elizabeth Moura MD Work Phone: [facility] Work Phone: Payers Date Payer Category Payer Self-pay [id number] 2019 Medicaid [id number] 2019 Medicaid [id number] 2018 Private Health Insurance [id number]. [id number] 2018 Private Health Insurance [facility] xxxxxxxxx 2018-Present [phone] [address] [place] [address] xxxxxxxxx [id number]. [id number] 1957 Unknown [id number] 2.840.1.817179.3.579.2. 668 1957 Unknown [id number] 2.840.1.290653.3.579.2. 668 Private Health Insurance Unknown [id number] 2.840.1.335662.3.579.2. 462 Unknown [id number] 2.16840.1.865666.3.579.2. 462 Unknown [id number] 2.16840.1.649334.3.579.2. 462 Unknown [id number] 2.840.1.536421.3.579.2. 462 Unknown [id number] 2.16840.1.937566.3.579.2. 462 Unknown [id number] 2.16840.1.649519.3.579.2. 462 Unknown [id number] 2.16840.1.571423.3.579.2. 462 Unknown [id number] 2.16840.1.571971.3.579.2. 462 Unknown [id number] 2.16840.1.939025.3.579.2. 462 Unknown [id number] 2.16.840.1.378361.3.579.2. 462 Unknown [id number] 2.16.840.1.232623.3.579.2. 462 Unknown [id number] 2.16.840.1.853896.3.579.2. 462 Unknown [id number] 2.16.840.1.971301.3.579.2. 462 Unknown [id number] 2.16.840.1.629653.3.579.2. 462 Unknown [id number] 2.16.840.1.569203.3.579.2. 462 Unknown [id number] 2.16840.1.467826.3.579.2. 462 Unknown [id number] 2.840.1.114727.3.579.2. 462 Unknown [id number] 2.840.1.214005.3.579.2. 462 Unknown [id number] 2.840.1.390250.3.579.2. 462 Unknown [id number] 2.16.840.1.443612.3.579.2. 462 Unknown [id number] 2.16840.1.225667.3.579.2. 462 Unknown [id number] 2.16840.1.347372.3.579.2. 462 Unknown [id number] 2.840.1.635317.3.579.2. 462 Unknown [id number] 2.16.840.1.961761.3.579.2. 462 Unknown [id number] 2.16.840.1.677445.3.579.2. 462 Unknown [id number] 2.16.840.1.716766.3.579.2. 462 Unknown [id number] 2.16.840.1.852450.3.579.2. 462 Unknown [id number] 2.16.840.1.864376.3.579.2. 462 Unknown [id number] 2.16840.1.566957.3.579.2. 462 Unknown [id number] 2.16840.1.520569.3.579.2. 462 Unknown [id number] 2.16840.1.940713.3.579.2. 462 Unknown [id number] 2.16840.1.510094.3.579.2. 462 Unknown [id number] 2.16840.1.158664.3.579.2. 462 Unknown [id number] 2.840.1.541986.3.579.2. 462 Unknown [id number] 2.840.1.679440.3.579.2. 462 Unknown [id number] 2.840.1.327559.3.579.2. 462 Unknown [id number] 2.840.1.511086.3.579.2. 462 Unknown [id number] 2.840.1.878756.3.579.2. 462 Unknown [id number] 2.840.1.535810.3.579.2. 462 Unknown [id number] 2.840.1.471419.3.579.2. 462 Unknown [id number] 2.840.1.625286.3.579.2. 462 Unknown [id number] 2.840.1.143975.3.579.2. 462 Unknown [id number] 2.840.1.536307.3.579.2. 462 Unknown [id number] 2.840.1.497075.3.579.2. 462 Unknown [id number] 2.840.1.372142.3.579.2. 462 Unknown [id number] 2.16840.1.552141.3.579.2. 462 Unknown [id number] 2.16.840.1.842829.3.579.2. 462 Unknown [id number] 2.16.840.1.721739.3.579.2. 462 Unknown [id number] 2.16.840.1.620651.3.579.2. 462 Unknown [id number] 2.16.840.1.025724.3.579.2. 462 Unknown [id number] 2.16.840.1.873330.3.579.2. 462 Unknown [id number] 2.16.840.1.289414.3.579.2. 462 Unknown [id number] 2.16.840.1.812850.3.579.2. 462 Unknown [id number] 2.16.840.1.036357.3.579.2. 462 Unknown [id number] 2.16.840.1.517305.3.579.2. 462 Unknown [id number] 2.16.840.1.967848.3.579.2. 462 Unknown [id number] 2.16.840.1.317625.3.579.2. 462 Unknown [id number] 2.16.840.1.025044.3.579.2. 462 Unknown [id number] 2.16.840.1.270789.3.579.2. 462 Social History Date Type Detail Facility Tobacco smoking status MIIS Unknown if ever smoked [facility] Work Phone: Start: 1955 Sex Assigned At Not on file [employer] Work Phone: Start: 11-05-2018 End: 06-26-2020 Tobacco smoking status NHIS Former smoker [employer] Work Phone: End: 02-06-2016 History of tobacco use Current smoker [employer] Work Phone: End: 02-06-2016 History of tobacco use Cigar Smoker [employer] Work Phone: Start: 02-05-2018 End: 06-26-2020 Tobacco use and exposure Never used [employer] Work Phone: Start: 06-26-2020 End: 05-20-2022 Alcohol intake Current drinker of alcohol (finding) [employer] Work Phone: Start: 07-08-2018 Alcohol Comment 2 times per wo rk, occasionally liquor [employer] Work Phone: Start: 05-10-2022 End: 05-20-2022 Exposure to SARS-CoV-2 (event) Not sure [employer] Work Phone: Start: 09-22-2020 End: 05-20-2022 Alcohol intake [facility] Start: 1955 Sex Assigned At Male [facility] End: 02-06-2016 History of tobacco use Cigarette Smoker [facility] Start: 05-20-2022 End: 10-02-2023 Tobacco use panel [facility] How often to you have a drink containing alcohol? Never [facility] How many standard drinks containing alcohol do you have on a typical day? Patient does not drink [facility] Start: 11-29-2021 End: 08-16-2024 Sex Male (finding) [facility] Tobacco smoking status NHIS Unknown if ever smoked [facility] Work Phone: NEGATED: Highlighted rowStart: 05-22-2019 End: 05-22-2019 Alcohol use Alcohol use [facility] Work Phone: NEGATED: Highlighted rowStart: 05-22-2019 End: 05-22-2019 Assertion Current some day smoker [facility] Work Phone: NEGATED: Highlighted rowStart: 05-22-2019 End: 05-22-2019 Details of drug misuse behavior Details of drug misuse behavior [facility] Work Phone: NEGATED: Highlighted rowStart: 05-22-2019 End: 05-22-2019 Tobacco use and exposure Tobacco use and exposure [facility] Work Phone: Clinical Notes 03-18-2021 [...] to fax the information to the office. [phone] [facility] 05-03-2024 Miscellaneous Notes Gissel is calling to let Dr. Burgos know that the medication he prescribed he not certified, she is going to fax the information to the office. [phone] documented in this encounter [facility] 11-22-2023 History of Presen t illness Narrative Images from the original note were not included. Speech-Language Pathology SPEECH LANGUAGE PATHOLOGY [facility] Modified Barium Swallow Study [...] despite effort. 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 Frequency: Per treating CASTING OPERATOR HELPER Barriers: large osteophytes, bridging with anterior [...] Prior MBSS?: No, unable to locate in [facility] Current Diet: Puree diet with ?liquid (no information from [facility]iva) Textures tested: - thin liquid, (cup edge) - mildly thick liquid, (cup edge) - puree, (teaspoon) Patient position: lateral Past Medical History: Past Medical History: Diagnosis Date TREVER (acute kidney injury) ([facility]) ([facility]) Alcohol abuse 07/08/2018 Anxiety C1 spinal cord injury ([facility]) ([facility]) Depression Fall 06/2018 Schizophrenia ([facility]) Past Surgical History: Past Surgical History: Procedure Laterality Date CERVICAL FUSION 07/09/2014 C2-6 cervical fusion GASTROSTOMY TUBE PLACEMENT 07/13/2018 TRACHEOSTOMY 07/13/2018 Admission Diagnosis: Patient Active Problem List Diagnosis Date Noted Respiratory syncytial virus (RSV) 03/22/2021 Hypoxia 03/19/2021 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[facility]) ([facility]) 08/16/2018 Chronic latent schizophrenia ([facility]) 08/15/2018 Prolonged Q-T interval on ECG 08/15/2018 Abdominal wall abscess 08/15/2018 Central cord syndrome ([facility]) ([facility]) 08/15/2018 Respiratory [...] from 2019. Pt is currently decannulated. H/o Christian Counselor cervical fusion C2-C6. Noted very large connective [...] able to eat by mouth. Therapy Time CASTING OPERATOR HELPER Individual Minutes Time In: 1150 Time Out: 1215 Minutes: 25 ZACHARY Sun documented in this encounter [facility] 10-02-2023 Emergency department Note [facility] at bedside at this time Mami Lantigua RN 10/02/23 0917 [facility] 10-02-2023 Emergency department Note [facility] at bedside at this time Mami Lantigua RN 10/02/23 1427 This RN gave report to Marnie at [facility] at this time Mami Lantigua RN 10/02/23 1358 This RN went to evaluate patient, was on 2L o2 and does not wear at baseline, plan is dc, this RN turned o2 off to trial patient, spo2 monitor on Mami Lantigua RN 10/02/[address] cart Eloisa Alfaro RN 10/02/23 1043 Emergency Department Encounter [facility] ED Patient: Kathya Hooper : 1955 [...] are mis-transcribed.) Fei Farooq MD Acute Care [facility] Fei Farooq MD 10/02/23 8880 Pt was brought in via [facility] from [facility] for Left sided facial droop. Per EMS nurse is new and does not know patient very well but he is A&O x 2 at baseline. Per EMS the nurse states it was 20 mins ago. Contacted nurse that was caring for him and she states that was the first time she has seen him for that day, shift engineer did not report any problems. EMS states [...] 131. documented in this encounter [facility] 10-02-2023 Emergency department Note This RN gave report to Marnie at [facility] at this time Mami Lantigua RN 10/02/23 9533 [facility] 10-02-2023 Emergency department Note This RN went to evaluate patient, was on 2L o2 and does not wear at baseline, plan is dc, this RN turned o2 off to trial patient, spo2 monitor on Mami Lantigua RN 10/02/23 1325 [facility] 10-02-2023 Emergency department Note Pt to ct via cart Eloisa Alfaro RN 10/02/23 1043 [facility] 10-02-2023 Emergency department Triage note Pt was brought in via [facility] from [facility] for Left sided facial droop. Per EMS nurse is new and does not know patient very well but he is A&O x 2 at baseline. Per EMS the nurse states it was 20 mins ago. Contacted nurse that was caring for him and she states that was the first time she has seen him for that day, shift engineer did not report any problems. EMS states [...] of schizophrenia. BS 131. T [facility] 10-02-2023 Physician Emergency department Note Emergency Department Encounter [facility] ED Patient: Kathya Hooper : 1955 Date of Evaluation: 10/02/2023 ED Supervising Physician: Fei Farooq MD I personally saw Kathya Hoopre and made/approved the management plan and take [...] [employer] Fei Farooq MD 10/02/23 1129 [employer] Work Phone: 05-20-2022 Emergency department Note Report called to senior care. Copy of Xray report sent with discharge packet Gary Ghosh RN 05/20/222007 [facility] 05-20-2022 Emergency department Note Report called to senior care. Copy of Xray report sent with discharge packet Gary Ghosh RN 05/20/222007 Emergency Department Encounter [facility] ED Patient: Kathya Hooper : 1955 Date of Evaluation: 05/20/2022 ED Supervising Physician: Abelardo Rios DO I independently examined and evaluated Kathya Hooper. This will serve as my Supervisory note as the bologna maker of record and shared attestation. I did perform a substantive portion of the visit including all aspects of the Medical Decision Making. I wore appropriate PPE for the entirety of this encounter. In brief, Kathya Hooper is a 67 y.o. male that presents to the emergency department after his G-tube fell out today at the senior care. Upon inspection of the G-tube, it appears [...] tube which fell out today at the senior care. Tube was easily replaced in the emergency room. Will order KUB with dye study to confirm placement and discharge back to the senior care. X-ray confirms due to position within the [...] 05/20/222014 documented in this encounter [facility] 05-20-2022 Miscellaneous Notes Associated Order(s): Feeding Tube Replacement Procedure Feeding Tube Replacement Performed by: Dejah Hazel DO Authorized by: Abelardo Rios DO Consent: Consent obtained: Verbal Consent given by: Patient [place] protocol: Patient identity confirmed: Verbally with patient [...] DO Resident 05/20/221931 documented in this encounter [facility] 05-20-2022 Note Associated Order(s): Feeding Tube Replacement Procedure Feeding Tube Replacement Performed by: Dejah Hazel DO Authorized by: Abelardo Rios DO Consent: Consent obtained: Verbal Consent given by: Patient [place] protocol: Patient identity confirmed: Verbally with patient [...] immediate complications Dejah Hazel DO Resident 05/20/221931 [employer] Phone: 05-20-2022 Note Associated Order(s): Feeding Tube Replacement Procedure Feeding Tube Replacement Performed by: Dejah Hazel DO Authorized by: Abelardo Rios DO Consent: Consent obtained: Verbal Consent given by: Patient [place] protocol: Patient identity confirmed: Verbally with patient [...] immediate complications Dejah Hazel DO Resident 05/20/221931 [employer] Phone: 05-20-2022 Physician Emergency department Note Emergency Department Encounter [facility] ED Patient: Kathya Hooper : 1955 Date of Evaluation: 05/20/2022 ED Supervising Physician: Abelardo Rios DO I independently examined and evaluated Kathya Hooper. This will serve as my Supervisory note as the bologna maker of record and shared attestation. I did perform a substantive portion of the visit including all aspects of the Medical Decision Making. I wore appropriate PPE for the entirety of this encounter. In brief, Kathya Hooper is a 67 y.o. male that presents to the emergency department after his G-tube fell out today at the senior care. Upon inspection of the G-tube, it appears [...] tube which fell out today at the senior care. Tube was easily replaced in the emergency room. Will order KUB with dye study to confirm placement and discharge back to the senior care. X-ray confirms due to position within the stomach. Will discharge back to his facility. Labs Reviewed - No data to display XR abdomen 1 view Final Result G-tube position is within the stomach. No evidence of contrast extravasation. Report Dictated on Electronically Signed By: Jason Tarn Electronically Signed Date/Time: 05/20/2022 7:38 PM EST [...] [employer] Abelardo Rios DO 05/20/222014 [employer] Work Phone: 03-24-2021 Note Hospitalist Discharg e [...] Pneumonia. Treated with antibiotics. He resides in [facility]. He was stablized and discharged [...] Result Date: 03/18/2021 [id number] Computed Tomography ACCESSION EXAM DATE/TIME PROCEDURE ORDERING PROVIDER [id number] 03/18/2021 16:26 EST CTA Head/Neck w/ + w/o [id number] -alyson CASTRO CPT code 17842 40548 Q9967 Reason For Exam (CTA Head/Neck w/ + w/o contrast) AMS, dysphasia and ?aphasia possibly since yesterday- very poor historian from senior care w/ unclear prior deficits - here w/ [...] airway at the (more content not included)... [facility] 03-24-2021 Hospital course Narrative Hospitalist Discharge [...] Pneumonia. Treated with antibiotics. He resides in [facility]. He was stablized and discharged [...] Tomography ACCESSION EXAM DATE/TIME PROCEDURE ORDERING PROVIDER [id number] 03/18/2021 16:26 EST CTA Head/Neck w/ + w/o 256017 -alyson CASTRO CPT code 65407 40577 Q9967 Reason For Exam (CTA Head/Neck w/ + w/o contrast) AMS, dysphasia and ?aphasia possibly since yesterday- very poor historian from senior care w/ unclear prior deficits - here w/ [...] Tomography ACCESSION EXAM DATE/TIME PROCEDURE ORDERING PROVIDER [id number] 03/18/2021 16:27 EST CTA Chest w/ + w/o 297324 -Alyson CASTRO CPT code 53801 Q9967 Reason For Exam (CTA Chest w/ + w/o Contrast) pulmonary embolus Report CTA chest with and without contrast History: chest pain Protocol: 1 mm images after IV contrast, 3D rendering performed by ca on a separate workstation No evidence of [...] Radiology ACCESSION EXAM DATE/TIME PROCEDURE ORDERING PROVIDER [id number] 03/19/2021 17:10 EST CR Chest Portable [id number] -BRADY DESAI CPT code 72609 Reason For Exam (CR Chest Portable) hypoxia [...] Result Date: 03/18/2021 Patient Name: KATHYA HOOPER [facility]#: [id number] Diagnostic Radiology ACCESSION EXAM DATE/TIME PROCEDURE ORDERING PROVIDER [id number] 03/18/2021 15:30 EST CR Chest Portable [id number] -CASTRO BOO CPT code 28160 Reason For Exam (CR Chest Portable) sob, [...] Contact Information Primary Emergency Contact: Jason Hooper [facility] Relation: Parent Past Surgical History: Past Surgical History: Procedure Laterality Date CERVICAL FUSION 07/09/2014 C2-6 cervical fusion GASTROSTOMY TUBE PLACEMENT 07/13/2018 TRACHEOSTOMY 07/13/2018 Immunization History: Immunization History Administered Date(s) Administered Pneumococcal Polysaccharide ([id number]) 01/10/2017 Tdap (Boostrix, Adacel) 01/10/2017 Active Problems: [...] (84.3 kg) Mental Status: {IP PT MENTAL STATUS:98218} IV Access: { CHRIS IV ACCESS:902922192} Nursing Mobility/ADLs: Walking {P DME ADLs:402154648} Transfer {P DME ADLs:231574709} Bathing {P DME ADLs:936677272} Dressing {P DME ADLs:731936980} Toileting {P DME ADLs:568145462} Feeding {P DME ADLs:761594021} Mobile Device Engineer {P DME ADLs:547210394} Med Delivery { CHRIS MED Delivery:878955167} Wound Care Documentation and Therapy: Negative Pressure Wound Therapy Abdomen Left (Active) Number of days: 947 Wound Sacrum Mid (Active) Number of days: Elimination: Continence: Bowel: {YES / NO:} Bladder: {YES / NO:} Urinary Catheter: {Urinary Catheter:078860968} Colostomy/Ileostomy/Ileal Conduit: {YES / NO:} Date of Last BM: No intake or output data in the 24 hours ending 03/24/21 1013 I/O last 3 completed shifts: In: 660 [NG/GT:660] Out: - Safety Concerns: { CHRIS Safety Concerns:584557015} Impairments/Disabilities: { CHRIS Impairments/Disabilities:92669134 3} Nutrition Therapy: Current Nutrition Therapy: { CHRIS Diet List:174254453} Routes of Feeding: {[facility] Other Feedings:349129379} Liquids: {[facility] liquid thickness:21609} Daily Fluid Restriction: {[facility] DME Yes amt example:300653629} Last Modified Barium Swallow with Video (Video Swallowing Test): {Done Not Done Date:} Treatments at the Time of Hospital Discharge: Respiratory Treatments: Oxygen Therapy: {Therapy; copd oxygen:29158} Ventilator: {[facility] Vent List:615492142} Rehab Therapies: {THERAPEUTIC INTERVENTION:6113891531} Weight Bearing Status/Restrictions: {[facility] Weight Bearin} Other Medical Equipment (for information only, NOT a DME order): {EQUIPMENT:257423181} Other Treatments: Patient's personal belongings (please select all that are sent with patient): {[facility] DME Belongings:889330914} RN SIGNATURE: {Esignature:426681882} CASE MANAGEMENT/SOCIAL WORK SECTION Inpatient Status Date: Readmission Risk Assessment Score: Readmission Risk Risk of Unplanned Readmission: 25 Discharging to Facility/ Agency Name: [facility] Address: [address] [place] [id number] Dialysis Facility (if applicable) Name: Address: Dialysis Schedule: Phone: Fax: Mainframe Programmer/Lead Man [employer] signature: PHYSICIAN SECTION Prognosis: Good Condition at Discharge: Stable Rehab Potential (if transferring to Rehab): Good Recommended Labs or Other Treatments After Discharge: Physician Certification: I certify the above information and transfer of Kathya Hooper is necessary for the continuing treatment of the diagnosis listed and that he requires [facility] Facility for greater 30 days. Update Admission [...] loss Fluid Accumulation: No significant fluid accumulation Warp Hauler Strength: Not Performed Estimated Daily Nutrient Needs: Energy (kcal): 9127-2625 (25-30 kcal/kg IBW); Weight Used for Energy Requirements: [place] (86.2 kg) Protein (g): 86-103 (1.0-1.2 g protein/kg IBW); Weight Used for Protein Requirements: [place] (86.2 kg) Fluid (ml/day): per MD. At [...] on 03/02/21, October weight= 185.5# on 01/29/21) [place] Body Weight: 190 lbs; % [place] Body Weight 97.8 % BMI: 24 Adjusted [...] Skin, Weight Discharge Planning: Enteral Nutrition Contact: *[phone] Images from the original note were not included. Hospitalist Progress Note 03/23/2021 9:27 AM Subjective: Admit Date: 03/19/2021 PCP: No primary care provider on file. Room#: 465/7093 Patient seen and examined. Laying in bed. [...] from the original note were not included. [facility], Pulmonary Critical Care and Sleep Medicine [address] [place] [address] Patient - Kathya Hooper, Age - 66 y.o. - 1955 Room Number - [facility]/7672 Consulting - Rafa Michel MD Primary Care Physician - No primary care provider on file. [id number] Date of Admission - 03/19/2021 3:52 PM [...] bed. Pt thought there was a copy chief in the corner of his room. When pt got his meds he calmed down. Pt now watching tv. Call light within reach. Bed alarm on. Images from the original note were not included. [facility], Pulmonary Critical Care and Sleep Medicine [address] [place] [address] Patient - Kathya Hooper, Age - 66 y.o. - 1955 Room Number - [facility]/4651 Consulting - Rafa Michel MD Primary Care Physician - No primary care provider on file. [id number] Date of Admission - 03/19/2021 3:52 PM [...] 66 y.o. - 1955 Room Number - 568/680[facility] - 91117 Date of Admission - 03/19/2021 3:52 PM [...] Date 03/21/21 0000 - 03/21/21 2359 Shift 5416-2013 3652-7498 3093-7838 24 Hour Total INTAKE NG/GT(mL/kg) 542(6.4) 542(6.4) [...] included. Hospitalist Progress Note 03/21/2021 9:41 AM [phone]: Please page me for patient care issues. [phone]: Please page [facility] Hospitalist for any issues. Subjective: Admit Date: [...] and s/p Trach PEG 07/13/2018. Present[facility] to [facility] ED with worsening SOB. Evaluated in ED [...] loss Fluid Accumulation: No significant fluid accumulation Warp Hauler Strength: Not Performed Estimated Daily Nutrient Needs: Energy (kcal): 3778-4635 (25-30 kcal/kg IBW); Weight Used for Energy Requirements: [place] (86.2 kg) Protein (g): 86-103 (1.0-1.2 g protein/kg IBW); Weight Used for Protein Requirements: [place] (86.2 kg) Fluid (ml/day): per MD. At facility receivin mL free water daily from EN and flushes; Method Used for Fluid Requirements: Other (Comment) Nutrition Related Findings: Massimo score= 15. No skin breakdown or edema noted. 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 Hospitalist Progress Note 03/20/2021 9:58 AM [phone]: Please page me for patient care issues. [phone]: Please page [facility] night Hospitalist for any issues. Subjective: Admit Date: 03/19/2021 PCP: No primary care provider on file. Room#: 390/3568 Interval History: He continues to have cough [...] Narrative NIF -20 documented in this encounter [facility] Work Phone: 03-18-2021 Hospital Discharg Boo Stringer MD - 03/18/2021 Mr. Hooper was seen at the [facility] emergency department for low oxygen levels. [...] cannot be sent through Care Everywhere.Viral Infections (Zambian)documented in this encounter [facility] Work Phone: Evaluation note Diagnosis PEG tube malfunction (HCC)- Primary Mechanical complication of gastrostomy documented in this encounter [facility] Work Phone: Evaluation note* Diagnosis Feeding tube dysfunction, initial encounter- Primary documented in this encounter [facility] Work Phone: Evaluation note* Diagnosis Respiratory syncytial virus (RSV)- Primary Hypoxia Hypoxemia [facility] Work Phone: Evaluation note* Diagnosis Respiratory syncytial virus (RSV)- Primary Hypoxia Hypoxemia [facility] Work Phone: Evaluation note* Diagnosis PEG tube malfunction (HCC)- Primary Mechanical complication of gastrostomy documented in this encounter [facility] Work Phone: Evaluation note* Diagnosis Contusion of right hip, initial encounter- Primary documented in this encounter [facility] Work Phone: Evaluation noteNo assessment information available [facility] Work Phone: Evaluation note* Diagnosis Dyspnea, unspecified type- Primary documented in this encounter [facility] HealthEvaluation note* Diagnosis Dysphagia, oropharyngeal phase Feeding difficulties Feeding difficulties and mismanagement [facility] Diagnosis Dysphagia, oropharyngeal phase- Primary Feeding difficulties Feeding difficulties and mismanagement Dysphagia, oropharyngeal phase Feeding difficulties Feeding difficulties and mismanagement documented in this encounter [facility] note* Diagnosis Dislodged gastrostomy tube- Primary [facility]* Diagnosis Chronic cough Cough documented in this encounter [facility] note* Diagnosis Chronic cough- Primary Cough Chronic cough Cough [facility] Attachments The following attachments cannot be sent through Care Everywhere. * PEG (Percutaneous Endoscopic Gastrostomy): Post-op (Zambian) documented in this [facility] Work Phone: Hospital Discharge instructions* Attachments The following attachments cannot be sent through Care Everywhere. * Feeding Tube: General Info (Zambian) documented in this [facility]* Instructions* Mary Cochran PA-C - 05/15/2021 Please return to the ED if you have any new or worsening symptoms. documented in this [facility] Work Phone: Hospital Discharge instructions* Attachments The following attachments cannot be sent through Care Everywhere. * Hip Pain (Zambian) * Contusion (Zambian) documented in this [facility] Work Phone: Hospital Discharge instructions* Attachments The following attachments cannot be sent through Care Everywhere. * Shortness of Breath (Dyspnea) Discharge Instructions (Zambian) documented in this [facility] Discharge instructions* Attachments The following attachments cannot be sent through Care Everywhere. * How to Care for Your Gastrostomy Tube (Zambian) [facility] (narrative)No reason for referral information availableWWVUMedicine [facility] Work Phone: Reason for visit Narrative* Imaging (Routine) - Closed Specialty Diagnoses / Procedures Referred By Soo stewart Referred To Contact Radiology Diagnoses Chronic cough Procedures CT chest wo IV contrast Rashaad Smith APRN - SIM [id number] [address] Phone: tel: fax: Referral ID Status Reason Start Date Expiration Date Visits Re quested Visits Authorized [id number] Closed 06/12/2024 06/12/2025 1 1 [facility] Health Summary Purpose Family History No Family History Records FoundNo Family History Records FoundThere may be information available, but it has not been provided by the sender.No Family History Records FoundNo Family History Records FoundNo Family History Records FoundNo Family History Records Found Advance Directives No Advanced Directives Records FoundDocuments on File Type Date Recorded 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 Expl 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 ACP-Advance Directive ACP-Advance Directive 08/07/2018 1:53 PM ACP-Power of Voice Over Artist Latest Code Status on File Code Status Date Activated Date Inactivated Comments Full Code 08/15/2018 8:27 PM 08/22/2018 4:31 PM Full Code 08/15/2018 8:12 PM 08/15/2018 8:27 PM Full Code 07/08/2018 8:28 PM 08/01/2018 2:39 PM Documents on File Type Date Recorded 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 Expl 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 ACP-Advance Directive ACP-Power of Voice Over Artist ACP-Advance Directive 08/07/2018 1:53 PM Latest Code Status on File Code Status Date Activated Date Inactivated Comments Full Code 03/20/2021 12:17 AM Full Code 08/15/2018 8:27 PM 08/22/2018 4:31 PM Documents on File Type Date Recorded 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 Expl anation ACP-Advance Directive ACP-Power of Voice Over Artist ACP-Advance Directive 03/26/2021 9:48 AM ACP-Advance Directive 08/07/2018 1:53 PM Latest Code Status on File Code Status Date Activated Date Inactivated Comments Full Code 03/20/2021 12:17 AM 03/24/2021 3:23 PM Documents on File Type Date Recorded 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 Expl anation Advance Directives and Livin g Will Advance Directives and Livin g Will 08/07/2018 1:53 PM Power of Voice Over Artist Documents on File Type Date Recorded 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 Expl anation Advance Directives and Livin g Will 05/23/2022 10:48 AM Advance Directives and Livin g Will 03/19/2021 Documents on File Type Date Recorded 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 Expl anation Advance Directives and Living Will 03/19/2021 Documents on File Type Date Recorded 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 Expl 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 * Feeding Tube: General Info (Zambian) documented in this encounter Assessments Diagnosis PEG [...] Complaint and Reason for Visit Chief Complaint ASSISTED LABWORK ASSISTED LAB WORK ASSISTED LABWORK ASSISTED LABWORK ASSISTED LABWORK ASSISTED LAB WORK ASSISTED LABWORK ASSISTED LABWORK ASSISTED LABWORK ASSISTED LABWORK ASSISTED LABWORK ASSISTED LAB WORK ASSISTED LABWORK NURING HOME LABWORK ASSISTED LABWORK ASSISTED LAB WORK ASSISTED LABWORK Chief Complaint ASSISTED LABWORK ASSISTED LABWORK ASSISTED LABWORK ASSISTED LAB WORK ASSISTED LABWORK NURING HOME LABWORK ASSISTED LABWORK ASSISTED LAB WORK ASSISTED LABWORK ASSISTED LABWORK ASSISTED LAB WORK ASSISTED LAB WORK ASSISTED BLOOD WORK ASSISTED LABWORK ASSISTED LAB WORK Chief Complaint ASSISTED LABWORK ASSISTED LABWORK ASSISTED LAB WORK ASSISTED LABWORK NURING HOME LABWORK ASSISTED LABWORK ASSISTED LAB WORK ASSISTED LABWORK ASSISTED LABWORK ASSISTED LAB WORK ASSISTED LAB WORK ASSISTED BLOOD WORK ASSISTED LABWORK LABWORK LABWORK ASSISTED LAB WORK Chief Complaint ASSISTED LABWORK ASSISTED LAB WORK ASSISTED LABWORK NURING HOME LABWORK ASSISTED LABWORK ASSISTED LAB WORK ASSISTED LABWORK ASSISTED LABWORK ASSISTED LAB WORK ASSISTED LAB WORK ASSISTED BLOOD WORK ASSISTED LABWORK LABWORK LABWORK ASSISTED LAB WORK Chief Complaint ASSISTED LAB WOR K ASSISTED LABWORK NURING HOME LABWORK ASSISTED LABWORK ASSISTED LAB WORK ASSISTED LABWORK ASSISTED LABWORK ASSISTED LAB WORK ASSISTED LAB WORK ASSISTED BLOOD WORK ASSISTED LABWORK LABWORK LABWORK ASSISTED LAB WORK Chief Complaint ASSISTED LAB WOR K ASSISTED LABWORK NURING HOME LABWORK ASSISTED LABWORK ASSISTED LAB WORK ASSISTED LABWORK ASSISTED LABWORK ASSISTED LAB WORK ASSISTED LAB WORK ASSISTED BLOOD WORK ASSISTED LABWORK LABWORK LABWORK ASSISTED LAB WORK LABWORK ASSISTED LABWORK Chief Complaint ASSISTED LABWORK NURING HOME LABWORK ASSISTED LABWORK ASSISTED LAB WORK ASSISTED LABWORK ASSISTED LABWORK ASSISTED LAB WORK ASSISTED LAB WORK ASSISTED BLOOD WORK ASSISTED LABWORK LABWORK LABWORK ASSISTED LAB WORK LABWORK ASSISTED LABWORK ASSISTED LAB WORK Chief Complaint ASSISTED BLOOD W ORK ASSISTED LABWORK ASSISTED LABWORK LABWORK LABWORK ASSISTED LAB WORK LABWORK ASSISTED LABWORK ASSISTED LAB WORK LABWORK ASSISTED LAB WORK ASSISTED LAB WORK LABWORK ASSISTED LAB WORK Chief Complaint ASSISTED BLOOD W ORK ASSISTED LABWORK ASSISTED LABWORK LABWORK LABWORK ASSISTED LAB WORK LABWORK ASSISTED LABWORK ASSISTED LAB WORK LABWORK ASSISTED LAB WORK ASSISTED LAB WORK LABWORK ASSISTED LAB WORK LABWORK Chief Complaint LABWORK LABWORK ASSISTED LAB WORK LABWORK ASSISTED LABWORK ASSISTED LAB WORK LABWORK ASSISTED LAB WORK ASSISTED LAB WORK LABWORK ASSISTED LAB WORK LABWORK ASSISTED LAB WORK Chief Complaint LABWORK ASSISTED LAB WORK LABWORK ASSISTED LABWORK ASSISTED LAB WORK LABWORK ASSISTED LAB WORK ASSISTED LAB WORK LABWORK ASSISTED LAB WORK LABWORK ASSISTED LAB WORK ASSISTED LABWORK Chief Complaint LABWORK ASSISTED LABWORK ASSISTED LAB WORK LABWORK ASSISTED LAB WORK ASSISTED LAB WORK LABWORK ASSISTED LAB WORK LABWORK ASSISTED LAB WORK ASSISTED LABWORK ASSISTED LABWORK LABWORK ASSISTED LAB WORK Chief Complaint ASSISTED LAB WOR K LABWORK ASSISTED LAB WORK ASSISTED LAB WORK LABWORK ASSISTED LAB WORK LABWORK ASSISTED LAB WORK ASSISTED LABWORK ASSISTED LABWORK LABWORK ASSISTED LAB WORK ASSISTED LAB WORK Chief Complaint ASSISTED LAB WOR K ASSISTED LAB WORK LABWORK ASSISTED LAB WORK LABWORK ASSISTED LAB WORK ASSISTED LABWORK ASSISTED LABWORK LABWORK ASSISTED LAB WORK ASSISTED LAB WORK LABWORK ASSISTED LAB WORK Chief Complaint ASSISTED LAB WOR K LABWORK ASSISTED LAB WORK LABWORK ASSISTED LAB WORK ASSISTED LABWORK ASSISTED LABWORK LABWORK ASSISTED LAB WORK ASSISTED LAB WORK LABWORK ASSISTED LAB WORK ASSISTED LAB WORK Chief Complaint ASSISTED LAB WOR K LABWORK ASSISTED LAB WORK ASSISTED LABWORK ASSISTED LABWORK LABWORK ASSISTED LAB WORK ASSISTED LAB WORK LABWORK ASSISTED LAB WORK LABWORK ASSISTED LAB WORK ASSISTED LAB WORK ASSISTED LABWORK ASSISTED LABWORK Chief Complaint LABWORK ASSISTED LAB WORK ASSISTED LABWORK ASSISTED LABWORK LABWORK ASSISTED LAB WORK ASSISTED LAB WORK LABWORK ASSISTED LAB WORK LABWORK ASSISTED LAB WORK ASSISTED LAB WORK ASSISTED LABWORK LABWORK ASSISTED LABWORK Chief Complaint LABWORK ASSISTED LAB WORK ASSISTED LAB WORK LABWORK ASSISTED LAB WORK LABWORK ASSISTED LAB WORK ASSISTED LAB WORK ASSISTED LABWORK LABWORK ASSISTED LABWORK ASSISTED LAB WORK Chief Complaint ASSISTED LAB WOR K LABWORK ASSISTED LAB WORK ASSISTED LAB WORK ASSISTED LABWORK LABWORK ASSISTED LABWORK ASSISTED LAB WORK LABWORK LABWORK LABWORK LABWORK ASSISTED LABWORK ASSISTED LAB WORK LABWORK LABWORK Chief Complaint LABWORK ASSISTED LAB WORK ASSISTED LAB WORK ASSISTED LABWORK LABWORK ASSISTED LABWORK ASSISTED LAB WORK LABWORK LABWORK LABWORK LABWORK ASSISTED LABWORK ASSISTED LAB WORK LABWORK LABWORK ASSISTED LABWORK Chief Complaint ASSISTED LAB WOR K ASSISTED LAB WORK ASSISTED LABWORK LABWORK ASSISTED LABWORK ASSISTED LAB WORK LABWORK LABWORK LABWORK LABWORK ASSISTED LABWORK ASSISTED LAB WORK LABWORK LABWORK ASSISTED LABWORK ASSISTED LAB WORK Chief Complaint ASSISTED LABWORK LABWORK ASSISTED LABWORK ASSISTED LAB WORK LABWORK LABWORK LABWORK LABWORK ASSISTED LABWORK ASSISTED LAB WORK LABWORK LABWORK ASSISTED LABWORK ASSISTED LAB WORK ASSISTED LABWORK ASSISTED LAB WORK Chief Complaint LABWORK ASSISTED LABWORK ASSISTED LAB WORK LABWORK LABWORK LABWORK LABWORK ASSISTED LABWORK ASSISTED LAB WORK LABWORK LABWORK ASSISTED LABWORK ASSISTED LAB WORK ASSISTED LABWORK LABWORK ASSISTED LAB WORK Chief Complaint LABWORK LABWORK LABWORK LABWORK ASSISTED LABWORK ASSISTED LAB WORK LABWORK LABWORK ASSISTED LABWORK ASSISTED LAB WORK ASSISTED LABWORK LABWORK ASSISTED LAB WORK LABWORK ASSISTED LABWORK Chief Complaint LABWORK ASSISTED LABWORK ASSISTED LAB WORK LABWORK LABWORK ASSISTED LABWORK ASSISTED LAB WORK ASSISTED LABWORK LABWORK ASSISTED LAB WORK LABWORK ASSISTED LABWORK LABWORK LABWORK Chief Complaint ASSISTED LABWORK ASSISTED LAB WORK LABWORK LABWORK ASSISTED LABWORK ASSISTED LAB WORK ASSISTED LABWORK LABWORK ASSISTED LAB WORK LABWORK ASSISTED LABWORK LABWORK LABWORK LABWORK ASSISTED LAB WORK ASSISTED LAB WORK ASSISTED LABWORK Chief Complaint ASSISTED LABWORK ASSISTED LAB WORK LABWORK LABWORK ASSISTED LABWORK ASSISTED LAB WORK ASSISTED LABWORK LABWORK ASSISTED LAB WORK LABWORK ASSISTED LABWORK LABWORK LABWORK LABWORK ASSISTED LAB WORK ASSISTED LAB WORK ASSISTED LABWORK ASSISTED LABWORK Chief Complaint LABWORK LABWORK ASSISTED LABWORK ASSISTED LAB WORK ASSISTED LABWORK LABWORK ASSISTED LAB WORK LABWORK ASSISTED LABWORK LABWORK LABWORK LABWORK ASSISTED LAB WORK ASSISTED LAB WORK ASSISTED LABWORK ASSISTED LABWORK ASSISTED LAB WORK LABWORK Chief Complaint ASSISTED LABWORK ASSISTED LAB WORK ASSISTED LABWORK LABWORK ASSISTED LAB WORK LABWORK ASSISTED LABWORK LABWORK LABWORK LABWORK ASSISTED LAB WORK ASSISTED LAB WORK ASSISTED LABWORK ASSISTED LABWORK ASSISTED LAB WORK LABWORK ASSISTED LABWORK Chief Complaint ASSISTED LABWORK LABWORK ASSISTED LAB WORK LABWORK ASSISTED LABWORK LABWORK LABWORK LABWORK ASSISTED LAB WORK ASSISTED LAB WORK ASSISTED LABWORK ASSISTED LABWORK ASSISTED LAB WORK LABWORK ASSISTED LABWORK ASSISTED LAB WORK Chief Complaint LABWORK ASSISTED LABWORK LABWORK LABWORK LABWORK ASSISTED LAB WORK ASSISTED LAB WORK ASSISTED LABWORK ASSISTED LABWORK ASSISTED LAB WORK LABWORK ASSISTED LABWORK ASSISTED LAB WORK ASSISTED LABWORK ASSISTED LAB WORK Chief Complaint LABWORK ASSISTED LABWORK ASSISTED LAB WORK ASSISTED LABWORK ASSISTED LAB WORK ASSISTED LABWORK ASSISTED LABWORK ASSISTED LABWORK ASSISTED LABWORK ASSISTED LAB WORK LABWORK LABWORK ASSISTED LABWORK Chief Complaint ASSISTED LABWORK ASSISTED LAB WORK ASSISTED LABWORK ASSISTED LABWORK ASSISTED LABWORK ASSISTED LABWORK ASSISTED LAB WORK LABWORK LABWORK ASSISTED LABWORK LABWORK ASSISTED LAB WORK ASSISTED LAB WORK Chief Complaint ASSISTED LABWORK ASSISTED LABWORK ASSISTED LABWORK ASSISTED LABWORK ASSISTED LAB WORK LABWORK LABWORK ASSISTED LABWORK LABWORK ASSISTED LAB WORK ASSISTED LAB WORK ASSISTED LABWORK ASSISTED LABWORK ASSISTED LAB WORK ASSISTED LAB WORK Chief Complaint ASSISTED LABWORK ASSISTED LABWORK ASSISTED LABWORK ASSISTED LAB WORK LABWORK LABWORK ASSISTED LABWORK LABWORK ASSISTED LAB WORK ASSISTED LAB WORK ASSISTED LABWORK ASSISTED LABWORK ASSISTED LAB WORK ASSISTED LAB WORK Chief Complaint ASSISTED LABWORK ASSISTED LABWORK ASSISTED LABWORK ASSISTED LAB WORK LABWORK LABWORK ASSISTED LABWORK LABWORK ASSISTED LAB WORK ASSISTED LAB WORK ASSISTED LABWORK ASSISTED LABWORK ASSISTED LAB WORK ASSISTED LAB WORK ASSISTED LABWORK LABWORK Chief Complaint ASSISTED LAB WOR K LABWORK LABWORK ASSISTED LABWORK LABWORK ASSISTED LAB WORK ASSISTED LAB WORK ASSISTED LABWORK ASSISTED LABWORK ASSISTED LAB WORK ASSISTED LAB WORK ASSISTED LABWORK LABWORK ASSISTED LAB WORK LABWORK Chief Complaint ASSISTED LAB WOR K LABWORK LABWORK ASSISTED LABWORK LABWORK ASSISTED LAB WORK ASSISTED LAB WORK ASSISTED LABWORK ASSISTED LABWORK ASSISTED LAB WORK ASSISTED LAB WORK ASSISTED LABWORK LABWORK ASSISTED LAB WORK LABWORK ASSISTED LABWORK ASSISTED LAB WORK Chief Complaint LABWORK LABWORK ASSISTED LABWORK LABWORK ASSISTED LAB WORK ASSISTED LAB WORK ASSISTED LABWORK ASSISTED LABWORK ASSISTED LAB WORK ASSISTED LAB WORK ASSISTED LABWORK LABWORK ASSISTED LAB WORK LABWORK ASSISTED LABWORK ASSISTED LAB WORK LABWORK\ Chief Complaint LABWORK ASSISTED LABWORK LABWORK ASSISTED LAB WORK ASSISTED LAB WORK ASSISTED LABWORK ASSISTED LABWORK ASSISTED LAB WORK ASSISTED LAB WORK ASSISTED LABWORK LABWORK ASSISTED LAB WORK LABWORK ASSISTED LABWORK ASSISTED LAB WORK LABWORK\ LABWORK Chief Complaint ASSISTED LAB WOR K ASSISTED LAB WORK ASSISTED LABWORK ASSISTED LABWORK ASSISTED LAB WORK ASSISTED LAB WORK ASSISTED LABWORK LABWORK ASSISTED LAB WORK LABWORK ASSISTED LABWORK ASSISTED LAB WORK LABWORK\ LABWORK ASSISTED LAB WORK LABWORK Chief Complaint ASSISTED LAB WOR K ASSISTED LABWORK ASSISTED LABWORK ASSISTED LAB WORK ASSISTED LAB WORK ASSISTED LABWORK LABWORK ASSISTED LAB WORK LABWORK ASSISTED LABWORK ASSISTED LAB WORK LABWORK\ LABWORK ASSISTED LAB WORK LABWORK LABWORK Chief Complaint ASSISTED LABWORK ASSISTED LABWORK ASSISTED LAB WORK ASSISTED LAB WORK ASSISTED LABWORK LABWORK ASSISTED LAB WORK LABWORK ASSISTED LABWORK ASSISTED LAB WORK LABWORK\ LABWORK ASSISTED LAB WORK LABWORK ASSISTED LABWORK LABWORK Chief Complaint ASSISTED LAB WOR K ASSISTED LABWORK LABWORK ASSISTED LAB WORK LABWORK ASSISTED LABWORK ASSISTED LAB WORK LABWORK\ LABWORK ASSISTED LAB WORK LABWORK ASSISTED LABWORK LABWORK ASSISTED LABWORK ASSISTED LAB WORK LABWORK ASSISTED LAB WORK Chief Complaint ASSISTED LABWORK LABWORK ASSISTED LAB WORK LABWORK ASSISTED LABWORK ASSISTED LAB WORK LABWORK\ LABWORK ASSISTED LAB WORK LABWORK ASSISTED LABWORK LABWORK ASSISTED LABWORK ASSISTED LAB WORK LABWORK ASSISTED LAB WORK LABWORK Chief Complaint ASSISTED LAB WOR K LABWORK ASSISTED LABWORK ASSISTED LAB WORK LABWORK\ LABWORK ASSISTED LAB WORK LABWORK ASSISTED LABWORK LABWORK ASSISTED LABWORK ASSISTED LAB WORK LABWORK ASSISTED LAB WORK LABWORK LABWORK Chief Complaint ASSISTED LAB WOR K LABWORK\ LABWORK ASSISTED LAB WORK LABWORK ASSISTED LABWORK LABWORK ASSISTED LABWORK ASSISTED LAB WORK LABWORK ASSISTED LAB WORK LABWORK LABWORK LABWORK LABWORK LABWORK Chief Complaint LABWORK\ LABWORK ASSISTED LAB WORK LABWORK ASSISTED LABWORK LABWORK ASSISTED LABWORK ASSISTED LAB WORK LABWORK ASSISTED LAB WORK LABWORK LABWORK LABWORK LABWORK LABWORK LABWORK Chief Complaint ASSISTED LAB WOR K LABWORK ASSISTED LABWORK LABWORK ASSISTED LABWORK ASSISTED LAB WORK LABWORK ASSISTED LAB WORK LABWORK LABWORK LABWORK LABWORK LABWORK LABWORK LABWORK Chief Complaint ASSISTED LABWORK LABWORK ASSISTED LABWORK ASSISTED LAB WORK LABWORK ASSISTED LAB WORK LABWORK LABWORK LABWORK LABWORK LABWORK LABWORK LABWORK ASSISTED LAB WORK LABWORK Chief Complaint LABWORK ASSISTED LABWORK ASSISTED LAB WORK LABWORK ASSISTED LAB WORK LABWORK LABWORK LABWORK LABWORK LABWORK LABWORK LABWORK ASSISTED LAB WORK LABWORK LABWORK LABWORK Chief Complaint LABWORK ASSISTED LAB WORK LABWORK LABWORK LABWORK LABWORK LABWORK LABWORK LABWORK ASSISTED LAB WORK LABWORK LABWORK LABWORK ASSISTED LAB WORK ASSISTED LAB WORK Chief Complaint ASSISTED LAB WOR K LABWORK LABWORK LABWORK LABWORK LABWORK LABWORK LABWORK ASSISTED LAB WORK LABWORK LABWORK LABWORK ASSISTED LAB WORK ASSISTED LAB WORK LABWORK Chief Complaint ASSISTED LABWORK ASSISTED LAB WORK ASSISTED LAB WORK ASSISTED LABWORK LABWORK ASSISTED LAB WORK LABWORK ASSISTED LABWORK ASSISTED LAB WORK LABWORK\ LABWORK ASSISTED LAB WORK LABWORK ASSISTED LABWORK LABWORK ASSISTED LABWORK Chief Complaint ASSISTED LABWORK ASSISTED LAB WORK ASSISTED LAB WORK ASSISTED LABWORK LABWORK ASSISTED LAB WORK LABWORK ASSISTED LABWORK ASSISTED LAB WORK LABWORK\ LABWORK ASSISTED LAB WORK LABWORK ASSISTED LABWORK LABWORK ASSISTED LABWORK ASSISTED LAB WORK Chief Complaint Admit Date ASSISTED LAB WORK March 11 5:00am ASSISTED LAB WORK March 18 5:00am LABWORK March 25, 2024 5:00am LABWORK April 01, 2024 5 :00am ASSISTED LAB WORK April 08, 2024 5:00am LABWORK April 15, 2024 5:00am LABWORK April 22, 2024 5:00am ASSISTED LAB WORK April 29 5:00am LABWORK May 06, 2024 5: 00am ASSISTED LAB WORK May 13, 2024 4:00am LABWORK May 20, 2024 5 :00am ASSISTED LAB WORK May 27, 2024 5:00am LABWORK June 03, 2024 5 :00am LABWORK June 07, 2024 5 :00am ASSISTED LAB WORK June 10 5:00am LABWORK June 17, 2024 5:00am ASSISTED LAB WORK June 24 5:00am Chief Complaint Admit Date LABWORK April 01, 2024 5 :00am ASSISTED LAB WORK April 08, 2024 5:00am LABWORK April 15, 2024 5:00am LABWORK April 22, 2024 5:00am ASSISTED LAB WORK April 29 5:00am LABWORK May 06, 2024 5: 00am ASSISTED LAB WORK May 13, 2024 4:00am LABWORK May 20, 2024 5 :00am ASSISTED LAB WORK May 27, 2024 5:00am LABWORK June 03, 2024 5 :00am LABWORK June 07, 2024 5 :00am ASSISTED LAB WORK June 10 5:00am LABWORK June 17, 2024 5:00am ASSISTED LAB WORK June 24 5:00am ASSISTED LAB WORK June 27 2:00am ASSISTED LAB WORK July 01, 2024 4: 00am LABWORK July 08, 2024 5:0 0am ASSISTED LAB WORK July 16, 2024 4 :00am Chief Complaint Admit Date ASSISTED LAB WORK April 08, 2024 5:00am LABWORK April 15, 2024 5:00am LABWORK April 22, 2024 5:00am ASSISTED LAB WORK April 29 5:00am LABWORK May 06, 2024 5: 00am ASSISTED LAB WORK May 13, 2024 4:00am LABWORK May 20, 2024 5 :00am ASSISTED LAB WORK May 27, 2024 5:00am LABWORK June 03, 2024 5 :00am LABWORK June 07, 2024 5 :00am ASSISTED LAB WORK June 10 5:00am LABWORK June 17, 2024 5:00am ASSISTED LAB WORK June 24 5:00am ASSISTED LAB WORK June 27 2:00am ASSISTED LAB WORK July 01, 2024 4: 00am LABWORK July 08, 2024 5:0 0am ASSISTED LAB WORK July 15, 2024 5 :00am ASSISTED LAB WORK July 16, 2024 4 :00am Chief Complaint Admit Date LABWORK April 15, 2024 5:00am LABWORK April 22, 2024 5:00am ASSISTED LAB WORK April 29 5:00am LABWORK May 06, 2024 5: 00am ASSISTED LAB WORK May 13, 2024 4:00am LABWORK May 20, 2024 5 :00am ASSISTED LAB WORK May 27, 2024 5:00am LABWORK June 03, 2024 5 :00am LABWORK June 07, 2024 5 :00am ASSISTED LAB WORK June 10 5:00am LABWORK June 17, 2024 5:00am ASSISTED LAB WORK June 24 5:00am ASSISTED LAB WORK June 27 2:00am ASSISTED LAB WORK July 01, 2024 4: 00am LABWORK July 08, 2024 5:0 0am ASSISTED LAB WORK July 15, 2024 5 :00am ASSISTED LAB WORK July 16, 2024 4 :00am ASSISTED LAB WORK July 22, 2024 5 :00am Chief Complaint Admit Date LABWORK April 22, 2024 5:00am ASSISTED LAB WORK April 29 5:00am LABWORK May 06, 2024 5: 00am ASSISTED LAB WORK May 13, 2024 4:00am LABWORK May 20, 2024 5 :00am ASSISTED LAB WORK May 27, 2024 5:00am LABWORK June 03, 2024 5 :00am LABWORK June 07, 2024 5 :00am ASSISTED LAB WORK June 10 5:00am LABWORK June 17, 2024 5:00am ASSISTED LAB WORK June 24 5:00am ASSISTED LAB WORK June 27 2:00am ASSISTED LAB WORK July 01, 2024 4: 00am LABWORK July 08, 2024 5:0 0am ASSISTED LAB WORK July 15, 2024 5 :00am ASSISTED LAB WORK July 16, 2024 4 :00am ASSISTED LAB WORK July 22, 2024 5 :00am LABWORK July 29, 2024 5:0 0am Chief Complaint Admit Date ASSISTED LAB WORK May 13, 2024 4:00am LABWORK May 20, 2024 5 :00am ASSISTED LAB WORK May 27, 2024 5:00am LABWORK June 03, 2024 5 :00am LABWORK June 07, 2024 5 :00am ASSISTED LAB WORK June 10 5:00am LABWORK June 17, 2024 5:00am ASSISTED LAB WORK June 24 5:00am ASSISTED LAB WORK June 27 2:00am ASSISTED LAB WORK July 01, 2024 4: 00am LABWORK July 08, 2024 5:0 0am ASSISTED LAB WORK July 15, 2024 5 :00am ASSISTED LAB WORK July 16, 2024 4 :00am ASSISTED LAB WORK July 22, 2024 5 :00am LABWORK July 29, 2024 5:0 0am ASSISTED LAB WORK August 05, 2024 5: 00am ASSISTED LAB WORK August 12, 2024 5 :00am Chief Complaint Admit Date LABWORK May 20, 2024 5 :00am ASSISTED LAB WORK May 27, 2024 5:00am LABWORK June 03, 2024 5 :00am LABWORK June 07, 2024 5 :00am ASSISTED LAB WORK June 10 5:00am LABWORK June 17, 2024 5:00am ASSISTED LAB WORK June 24 5:00am ASSISTED LAB WORK June 27 2:00am ASSISTED LAB WORK July 01, 2024 4: 00am LABWORK July 08, 2024 5:0 0am ASSISTED LAB WORK July 15, 2024 5 :00am ASSISTED LAB WORK July 16, 2024 4 :00am ASSISTED LAB WORK July 22, 2024 5 :00am LABWORK July 29, 2024 5:0 0am ASSISTED LAB WORK August 05, 2024 5: 00am ASSISTED LAB WORK August 12, 2024 5 :00am LABWORK August 26, 2024 5:0 0am Chief Complaint Admit Date LABWORK June 03, 2024 5 :00am LABWORK June 07, 2024 5 :00am ASSISTED LAB WORK June 10 5:00am LABWORK June 17, 2024 5:00am ASSISTED LAB WORK June 24 5:00am ASSISTED LAB WORK June 27 2:00am ASSISTED LAB WORK July 01, 2024 4: 00am LABWORK July 08, 2024 5:0 0am ASSISTED LAB WORK July 15, 2024 5 :00am ASSISTED LAB WORK July 16, 2024 4 :00am ASSISTED LAB WORK July 22, 2024 5 :00am LABWORK July 29, 2024 5:0 0am ASSISTED LAB WORK August 05, 2024 5: 00am ASSISTED LAB WORK August 12, 2024 5 :00am ASSISTED LAB WORK August 19, 2024 4 :00am ASSISTED LAB WORK August 23, 2024 5 :00am LABWORK August 26, 2024 5:0 0am LABWORK September 09, 2024 5:00a m Chief Complaint Admit Date LABWORK June 07, 2024 5 :00am ASSISTED LAB WORK June 10 5:00am LABWORK June 17, 2024 5:00am ASSISTED LAB WORK June 24 5:00am ASSISTED LAB WORK June 27 2:00am ASSISTED LAB WORK July 01, 2024 4: 00am LABWORK July 08, 2024 5:0 0am ASSISTED LAB WORK July 15, 2024 5 :00am ASSISTED LAB WORK July 16, 2024 4 :00am ASSISTED LAB WORK July 22, 2024 5 :00am LABWORK July 29, 2024 5:0 0am ASSISTED LAB WORK August 05, 2024 5: 00am ASSISTED LAB WORK August 12, 2024 5 :00am ASSISTED LAB WORK August 19, 2024 4 :00am ASSISTED LAB WORK August 23, 2024 5 :00am LABWORK August 26, 2024 5:0 0am ASSISTED LAB WORK September 02, 2024 4:00 am LABWORK September 09, 2024 5:00a m LABWORK September 11, 2024 5:00a m Chief Complaint Admit Date ASSISTED LAB WORK July 01, 2024 4: 00am LABWORK July 08, 2024 5:0 0am ASSISTED LAB WORK July 15, 2024 5 :00am ASSISTED LAB WORK July 16, 2024 4 :00am ASSISTED LAB WORK July 22, 2024 5 :00am LABWORK July 29, 2024 5:0 0am ASSISTED LAB WORK August 05, 2024 5: 00am ASSISTED LAB WORK August 12, 2024 5 :00am ASSISTED LAB WORK August 19, 2024 4 :00am ASSISTED LAB WORK August 23, 2024 5 :00am LABWORK August 26, 2024 5:0 0am ASSISTED LAB WORK September 02, 2024 4:00 am LABWORK September 09, 2024 5:00a m LABWORK September 11, 2024 5:00a m ASSISTED LAB WORK September 16, 2024 5:0 0am ASSISTED LAB WORK September 24, 2024 4:0 0am Chief Complaint Admit Date ASSISTED LAB WORK August 05, 2024 5: 00am ASSISTED LAB WORK August 12, 2024 5 :00am ASSISTED LAB WORK August 19, 2024 4 :00am ASSISTED LAB WORK August 23, 2024 5 :00am LABWORK August 26, 2024 5:0 0am ASSISTED LAB WORK September 02, 2024 4:00 am LABWORK September 09, 2024 5:00a m LABWORK September 11, 2024 5:00a m ASSISTED LAB WORK September 16, 2024 5:0 0am ASSISTED LAB WORK September 24, 2024 4:0 0am LABWORK September 30, 2024 5:00a m LABWORK October 07, 2024 5:00a m ASSISTED LAB WORK October 14, 2024 4: 00am ASSISTED LAB WORK October 21, 2024 4: 00am LABWORK October 28, 2024 5:00 am ASSISTED LAB WORK November 04, 2024 4:0 0am ASSISTED LAB WORK November 11, 2024 5: 00am Chief Complaint Admit Date LABWORK October 28, 2024 5:00 am ASSISTED LAB WORK November 04, 2024 4:0 0am ASSISTED LAB WORK November 11, 2024 5: 00am ASSISTED LAB WORK November 18, 2024 5: 00am LABWORK November 25, 2024 5:00 am ASSISTED LAB WORK December 02, 2024 5 :00am ASSISTED LAB WORK December 09, 2024 4:00am ASSISTED LAB WORK December 16, 2024 4:00am LABOWRK December 23, 2024 5: 00am ASSISTED LAB WORK December 31 5:00am ASSISTED LAB WORK January 06 4:00am ASSISTED LAB WORK January 10 5:00am LABWORK January 13, 2025 5:00am ASSISTED LAB WORK January 20 4:00am ASSISTED LAB WORK January 27 4:00am ASSISTED LAB WORK February 03, 2025 5:00am ASSISTED LAB WORK February 10, 2025 4:00am Additional [...] DATE CREATED AUTHOR AUTHOR'S ORGANIZ ATION 03/12/2025 [facility] Source Comments (unrecognize d section and content) [...] Solorio RN) 0401 (Stopped - Provider: Nancy Solorio, [facility])0639 [...] 1200 [id number] (Given - Provider: Amelie Taylor [facility])1356 (Given - Provider: Amelie Taylor, [facility])1648 (Given - Provider: Amelie Taylor [facility])2212 (Given - Provider: Claire Lagos [facility]) 0841 (Given - Provider: Ana Cabrera [facility])1213 (Given - Provider: Ana Cabrera [facility])1622 (Given - Provider: Ana Cabrera [facility])2037 (Given - Provider: Perla Loyola [facility]) 1020 (Given - Provider: Gabriel Soares [facility])1200 (Due)1600 (Due)2000 (Due) lansoprazole (PREVACID SOLUTAB) [...] at 2323 1003 (Given - Provider: Amelie Taylor, [facility])2215 (Given - Provider: Claire Lagos [facility]) 0841 (Given - Provider: Ana Cabrera [facility])2051 (Given - Provider: Perla Loyola, [facility]) 1200 (Due - Provider: Gabriel Soares [facility])2100 (Due) sodium chloride flush 0.9 % [...] Status Dates Renard Burgos Attending Provider Active Clinic Md Associate Relationship Specialty Start Date End Date Renard Burgos [address] [place] [id number] PCP - General Internal Medicine 10/16/23 Clinic Md Associate Relationship Specialty Start Date End Date Renard Burgos [address] [place] [id number] PCP - General Internal Medicine 10/16/23 Clinic Md Associate Relationship Specialty Start Date End Date ShellieRenard easton [address] [place] [id number] PCP - General Internal Medicine 10/16/23 Clinic Md Associate Relationship Specialty Start Date End Date Loretta Renard [address] [facility] [address] [place] [id number] PCP - General Internal Medicine 10/16/23 Team [...] Provider Active Sta rt: September 09, 2024 Clinic Md Associate Relationship Specialty Start Date End Date Renard Burgos [address] [facility] [address] [place] [phone] PCP - General Internal Medicine 10/16/23 Team [...] GAR[place] Attending physician Active St art: October 6th, 2025 Team Status: Active Member Role/Relationship Status Dates Renard Burgos GILL Attending physician Active St art: February 10, 2025 Renard Aliriohola GARLAND Referring Provider Active Sta rt: February 10, [...] BE BASED ON THE PRIMARY CLINICAL RECORDS. [facility] [employer] provides no warranty or guarantee of the accuracy or completeness of information in this document.
[2025-04-14 08:46] LABS: Hematocrit 44.0 % (40-54); Hemoglobin 14.2 g/dL (13.0-16.5); Immature Granulocytes Count 0.020 X10^3/uL (0.0-0.0); Mean Corp Hgb Conc 32.3 g/dL (32-36); Mean Corpuscular Volume 93.2 fL (80-94); Mean Platelet Vol. 11.3 fl (6.2-12.0); NRBC Flagged by Analyzer 0 % (0-5); Platelet Count 173 K/mm3 (150-450); RBC Distribution Width CV 12.7 % (11.6-14.6); RBC Distribution Width SD 43.0 fl (35.1-43.9); Red Blood Count 4.72 M/mm3 (4.6-6.2); White Blood Count 8.3 K/mm3 (4.4-11.0)
[2025-04-14 09:03] LABS: AST(SGOT) 19 U/L (<=37); Alanine Aminotransfer ALT/SGPT 13 U/L (<=46); Albumin, Serum 3.5 g/dL (3.4-4.8); Alkaline Phosphatase 112 U/L (40-129); Bilirubin, Direct 0.12 mg/dL (0.00-0.30); Globulin 2.3 g/dL (2.2-4.2)
== END ==
LOC: OLS.SANC 05:00
PROVIDERS: Visit Provider Internal Medicine
DX: Z79.899 Other long term (current) drug therapy (principal)
CPT/HCPCS: 36415; 80076; 85025

== ENCOUNTER → 2025-04-28 05:00 | Outpatient (REF) | payer MEDICAID, SELFPAY ==
--- OUTSIDE RECORDS SUMMARY | 2025-04-28 04:16 | XMS RPT_ITS | CCD ---
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 Role Phone JORDAN OREILLY Attending Unavailable PROVIDER, UNKNOWN Referring Unavailable Nathanael Cazares Primary Care Unavailable PROVIDER, UNKNOWN Referring Unavailable Nathanael Cazares Primary Care Unavailable Jaime Lindquist Attending Unavailable Unavailable Primary Care Provider UnavailBethany Navarrete Primary Care Provider [phone] Jarvis Kendall MD Unavailable [phone] Bethany Russell MD Primary Care Provider Unavailable Primary Care Provider Unavailclifton Latif MD, Jenn Edwin Primary Care Provider [phone] Unavailable Primary Care Provider UnavailRenard Mccann Primary Care Provider [phone] Unavailable Primary Care Provider UnavailRENARD Mccann Attending [...] tablet via peg tube as needed ACETAMINOPHEN [id number] Ana Stevenson [facility] albuterol 0.83 mg/ml inhalation solution (1 source) beta2-Adrenergic Agonist Start: 03-19-2021 albut veronica (PROVENTIL) nebulizer solution 2.5 mg albuterol 0.833 mg/ml / ipratropium bromide 0.167 mg/ml inhalation solution (18 sources) Anticholinergic, beta2-Adrenergic Agonist Start: 03-20-2021 ipratropium-alb utero l (DUONEB) nebulizer solution 1 ampule Start: 05-22-2019 IPRATROPIUM-AL BUTEROL 0.5-2.5 (3) MG/3ML SOLN 3ml via nebulizer every 4 hours as needed IPRATROPIUM-ALBUTEROL [id number] Ana Diesch [employer]UN[employer] EDUCATION SPECIALIST Start: 08-22-2018 take 3 mL by inhalat ion every four hours ipratropium-albuterol (DUONEB) 0.5-2.5 (3) MG/3ML SOLN nebulizer solution Inhale 3 mLs into the lungs every 4 hours 360 mL 0 08/22/2018 Active aspirin 81 mg chewable tablet (9 sources) Platelet Aggregation Inhibitor, Nonsteroidal Anti-inflammatory Drug Start: 05-22-2019 ASPIRIN ADULT LOW STRENGTH 81 MG CHEW one tablet via peg tube daily ASPIRIN [id number] Ana Stevenson [facility] Start: 08-23-2018 aspirin 81 MG chewable tablet 1 tablet by Per NG tube route daily 30 tablet 3 08/23/2018 Active atorvastatin 40 mg oral tablet (9 sources) HMG-CoA Reductase Inhibitor Start: 05-22-2019 ATORVASTATIN CALCIUM 40 MG TABS one tablet via peg tube daily [facility]STATIN [facility]CI[facility] [id number] [facility] Start: 08-22-2018 atorvastatin ( LIPITOR) 40 MG tablet 1 tablet by Per NG tube route nightly 30 tablet 3 08/22/2018 Active castor oil 0.788 mg/mg / burundian balsam 0.087 mg/mg topical ointment (7 sources) Standardized Chemical Allergen Start: 08-22-2018 Balsam [place] (VENELEX) OINT ointment Apply topically [...] 250mg via peg tube twice daily CLOZ[facility]INE [id number] [facility] Start: 08-22-2018 cloZAPine (AILYN ZARIL) [...] via peg tube twice daily DOCUSATE SODIUM [id number] [facility] Start: 08-22-2018 docusate (COLA CE) 50 MG/5ML liquid 10 mLs by Per NG tube route 2 times daily 0 08/22/2018 Active take 1 capsule by mo [facility] twice daily docusate sodium (Colace) [...] one tablet via peg tube nightly MELATONIN [id number] [facility] Start: 08-22-2018 melatonin 3 MG TABS [...] needed. 0 08/23/2018 Active polyethylene glycol 3350 74916 mg powder for oral solution (1 source) [...] Sig (Normalized) Sig (Original) barium sulfate (Varibar Griffith, Varibar Honey) 40 % suspension 5 mL [...] SUPP every 24 hours as needed BISACODYL [id number] Ana Stevenson COMMUNITY EDUCATION SPECIALIST Start: 05-22-2019 BISACODYL EC 5 MG TBEC one tablet via peg tube daily as needed BISACODYL [id number] Ana Stevenson COMMUNITY EDUCATION SPECIALIST chlorhexidine gluconate 1.2 mg/ml mouthwash (10 sources) Start: 05-22-2019 PERIDEX 0.12 % SOLN 15ml twice daily CHLORHEXIDINE GLUCONATE [id number] Ana Stevenson LPN chlorhexidine (P eridex) 0.12 % solution Use 15 mL in the mouth or throat if needed for wound care. Active cholecalciferol 1000 unt oral tablet (16 sources) Vitamin D Start: 05-22-2019 VITAMIN D3 25 MCG (1000 UT) TABS one tablet via peg tube daily CHOLECALCIFEROL [id number] Ana Stevenson LPN cholecalciferol (SM Vitamin D3) 25 MCG (1000 UT) tablet Take 1,000 Units by mouth daily. Active dextromethorphan hydrobromide 2 mg/ml / guaiFENesin 20 mg/ml oral solution (1 source) Uncompetitive Z-cowxxc-N-aspartate Receptor Antagonist, Sigma-1 Agonist Start: 05-22-2019 ROBITUSSIN PEAK COLD DM SYRP 5ml via peg tube every 4 hours as needed for cough DEXTROMETHORPHAN-GUAIFENESIN SYRP [id number] Ana Stevenson LPN magnesium hydroxide 240 mg/ml oral suspension (1 source) Start: 05-22-2019 MILK OF MAGNESIA CONCENTRATE SUSP 30ml via peg tube every 24 hours MAGNESIUM HYDROXIDE SUSP [id number] Ana Stevenson LPN methylPREDNISolone 40 mg injection (2 sources) Corticosteroid Start: 03-20-2021 End: 03-24-2021 methylPREDNISolone sodium (SOLU-MEDROL) injection 40 mg MULTIPLE VITAMINS-MINERALS (1 source) Start: 05-22-2019 MENS MULTIVITAMIN TABS one tablet via peg tube daily MULTIPLE VITAMINS-MINERALS [id number] Ana Stevenson LPN POLYETHYLENE GLYCOL 1450 (1 source) Start: 05-22-2019 POLYETHYLENE GLYCOL 1450 POW D 17 grams via peg tube twice daily POLYETHYLENE GLYCOL 1450 [id number] Ana Stevenson LPN SENNOSIDES-DOCUSATE SODIUM (1 source) Start: 05-22-2019 SENNA PLUS 8.6-50 MG TABS on e tablet via peg tube daily SENNOSIDES-DOCUSATE SODIUM [id number] Ana Stevenson LPN 50 ml sodium chloride [...] Onset: 9 07-11-2018 Other aftercare (2 sources) 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; Translations: [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] Onset: 9 Episodic Other aftercare (2 sources) 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 [place], [place], [address] Absolute Neut 5.9 X10 3/uL Normal 2.0-7.7 [facility] Comment on above: Order Comment: 109-1 Performed By: #### L 100.0100 ####[facility] [address] [place], [address] Basophils/100 WBC (Bld) 0.6 % Normal 0-1 [facility] Comment on above: Order Comment: 109-1 Performed By: #### L 100.0100 ####[facility] [address] [place], [address] Eosinophils/100 WBC (Bld) 1.0 % Normal 0-5 [facility] Comment on above: Order Comment: 109-1 Performed By: #### L 100.0100 ####[facility] [address] [place], [address] Erythrocyte distribution width (RBC) [Ratio] 13.3 % Normal 11.6-14.6 [facility] Comment on above: Order Comment: 109-1 Performed By: #### L 100.0100 ####[facility] [address] [place], [address] Hematocrit (Bld) [Volume fraction] 39.6 % Low 40-54 [facility] Comment on above: Order Comment: 109-1 Performed By: #### L 100.0100 ####[facility] [address] [place], [address] Hemoglobin (Bld) [Mass/Vol] 12.9 g/dL Low 13.0-16.5 [facility] Comment on above: Order Comment: 109-1 Performed By: #### L 100.0100 ####[facility] [address] [place], [address] IG% 0.400 Normal 0.0-0.9 [facility] Comment on above: Order Comment: 109-1 Result Comment: IG% - Immature Granulocytes (promyelocytes, myelocytes andmetamyelocytes) > 1% indicates that a LEFT SHIFT is Present. Performed By: #### L 100.0100 ####[facility] [address] [place], [address] Lymphocytes/100 WBC (Bld) 18.6 % Low 19-41 [facility] Comment on above: Order Comment: 109-1 Performed By: #### L 100.0100 ####[facility] [address] [place], [address] MCH (RBC) [Entitic mass] 30.0 pg Normal 27.0-32.0 [facility] Comment on above: Order Comment: 109-1 Performed By: #### L 100.0100 ####[facility] [address] [place], [address] MCHC (RBC) [Mass/Vol] 32.6 g/dL Normal 32-36 [facility] Comment on above: Order Comment: 109-1 Performed By: #### L 100.0100 ####[facility] [address] [place], [address] MCV (RBC) [Entitic vol] 92.1 fL Normal 80-94 [facility] Comment on above: Order Comment: 109-1 Performed By: #### L 100.0100 ####[facility] [address] [place], [address] Monocytes/100 WBC (Bld) 8.5 % Normal 0-10 [facility] Comment on above: Order Comment: 109-1 Performed By: #### L 100.0100 ####[facility] [address] [place], [address] Neutrophils/100 WBC (Bld) 70.9 % High 47-70 [facility] Comment on above: Order Comment: 109-1 Performed By: #### L 100.0100 ####[facility] [address] [place], [address] Nucleated RBC (Bld) [#/Vol] 0 10*3/uL Normal 0-5 [facility] Comment on above: Order Comment: 109-1 Performed By: #### L 100.0100 ####[facility] [address] [place], [address] Platelet mean volume (Bld) [Entitic vol] 11.3 fL Normal 6.2-12.0 [facility] Comment on above: Order Comment: 109-1 Performed By: #### L 100.0100 ####[facility] [address] [place], [address] Platelets (Bld) [#/Vol] 206 10*3/uL Normal 150-450 [facility] Comment on above: Order Comment: 109-1 Performed By: #### L 100.0100 ####[facility] [address] [place], [address] RBC (Bld) [#/Vol] 4.30 10*6/uL Low 4.6-6.2 [facility] Comment on above: Order Comment: 109-1 Performed By: #### L 100.0100 ####[facility] [address] [place], [address] RDW SD 45.1 fl High 35.1-43.9 [facility] Comment on above: Order Comment: 109-1 Performed By: #### L 100.0100 ####[facility] [address] [place], [address] WBC (Bld) [#/Vol] 8.3 10*3/uL Normal 4.4-11.0 [facility] Comment on above: Order Comment: 109-1 Performed By: #### L 100.0100 ####[facility] [address] [place], [address] CBC W/Diff, Automatedon 11-0 3-2025 Absolute Lymph 2.24 X10 3/uL Normal 0.83-4.51 [facility] Comment on above: Order Comment: 109.1 Performed By: #### L 100.0100 ####[facility] [address] [place], [address] Absolute Neut 5.2 X10 3/uL Normal 2.0-7.7 [facility] Comment on above: Order Comment: 109.1 Performed By: #### L 100.0100 ####[facility] [address] [place], [address] Basophils/100 WBC (Bld) 0.5 % Normal 0-1 [facility] Comment on above: Order Comment: 109.1 Performed By: #### L 100.0100 ####[facility] [address] [place], [address] Eosinophils/100 WBC (Bld) 1.1 % Normal 0-5 [facility] Comment on above: Order Comment: 109.1 Performed By: #### L 100.0100 ####[facility] [address] [place], [address] Erythrocyte distribution width (RBC) [Ratio] 13.4 % Normal 11.6-14.6 [facility] Comment on above: Order Comment: 109.1 Performed By: #### L 100.0100 ####[facility] [address] [place], [address] Hematocrit (Bld) [Volume fraction] 40.9 % Normal 40-54 [facility] Comment on above: Order Comment: 109.1 Performed By: #### L 100.0100 ####[facility] [address] [place], [address] Hemoglobin (Bld) [Mass/Vol] 13.4 g/dL Normal 13.0-16.5 [facility] Comment on above: Order Comment: 109.1 Performed By: #### L 100.0100 ####[facility] [address] [place], [address] IG% 0.400 Normal 0.0-0.9 [facility] Comment on above: Order Comment: 109.1 Result Comment: IG% - Immature Granulocytes (promyelocytes, myelocytes andmetamyelocytes) > 1% indicates that a LEFT SHIFT is Present. Performed By: #### L 100.0100 ####[facility] [address] [place], [address] Lymphocytes/100 WBC (Bld) 27.0 % Normal 19-41 [facility] Comment on above: Order Comment: 109.1 Performed By: #### L 100.0100 ####[facility] [address] [place], [address] MCH (RBC) [Entitic mass] 30.3 pg Normal 27.0-32.0 [facility] Comment on above: Order Comment: 109.1 Performed By: #### L 100.0100 ####[facility] [address] [place], [address] MCHC (RBC) [Mass/Vol] 32.8 g/dL Normal 32-36 [facility] Comment on above: Order Comment: 109.1 Performed By: #### L 100.0100 ####[facility] [address] [place], [address] MCV (RBC) [Entitic vol] 92.5 fL Normal 80-94 [facility] Comment on above: Order Comment: 109.1 Performed By: #### L 100.0100 ####[facility] [address] [place], [address] Monocytes/100 WBC (Bld) 8.7 % Normal 0-10 [facility] Comment on above: Order Comment: 109.1 Performed By: #### L 100.0100 ####[facility] [address] [place], [address] Neutrophils/100 WBC (Bld) 62.3 % Normal 47-70 [facility] Comment on above: Order Comment: 109.1 Performed By: #### L 100.0100 ####[facility] [address] [place], [address] Nucleated RBC (Bld) [#/Vol] 0 10*3/uL Normal 0-5 [facility] Comment on above: Order Comment: 109.1 Performed By: #### L 100.0100 ####[facility] [address] [place], [address] Platelet mean volume (Bld) [Entitic vol] 11.4 fL Normal 6.2-12.0 [facility] Comment on above: Order Comment: 109.1 Performed By: #### L 100.0100 ####[facility] [address] [place], [address] Platelets (Bld) [#/Vol] 197 10*3/uL Normal 150-450 [facility] Comment on above: Order Comment: 109.1 Performed By: #### L 100.0100 ####[facility] [address] [place], [address] RBC (Bld) [#/Vol] 4.42 10*6/uL Low 4.6-6.2 [facility] Comment on above: Order Comment: 109.1 Performed By: #### L 100.0100 ####[facility] [address] [place], [address] RDW SD 45.8 fl High 35.1-43.9 [facility] Comment on above: Order Comment: 109.1 Performed By: #### L 100.0100 ####[facility] [address] [place], [address] WBC (Bld) [#/Vol] 8.3 10*3/uL Normal 4.4-11.0 [facility] Comment on above: Order Comment: 109.1 Performed By: #### L 100.0100 ####[facility] [address] [place], [address] Absolute lymphocyte countOrd ered By: Renard Burgos on 02-24-2025 Lymphocytes Auto (Unsp spec) [#/Vol] 1.98 10*3/uL 0.83-4.51 [facility] Absolute neutrophil countOrd ered By: Renard Burgos on 02-24-2025 Neutrophils (Bld) [#/Vol] 5.4 10*3/uL 2.0-7.7 [facility] Automated lymphocyte count a s percentage of total leukocytesOrdered By: Renard Burgos on 02-24-2025 Lymphocytes/100 WBC Auto (Unsp spec) 24.6 % 19-41 [facility] Basophil percentageOrdered B y: Renard Burgos on 02-24-2025 Basophils/100 WBC (Bld) 0.5 % 0-1 [facility] CBC W/Diff, Automatedon 01-30 Absolute Lymph 1.98 X10 3/uL Normal 0.83-4.51 [facility] Comment on above: Order Comment: 109-1 Performed By: #### L 100.0100 ####[facility] [address] [place], [address] Absolute Neut 5.4 X10 3/uL Normal 2.0-7.7 [facility] Comment on above: Order Comment: 109-1 Performed By: #### L 100.0100 ####[facility] [address] [place], [address] Basophils/100 WBC (Bld) 0.5 % Normal 0-1 [facility] Comment on above: Order Comment: 109-1 Performed By: #### L 100.0100 ####[facility] [address] [place], [address] Eosinophils/100 WBC (Bld) 0.9 % Normal 0-5 [facility] Comment on above: Order Comment: 109-1 Performed By: #### L 100.0100 ####[facility] [address] [place], [address] Erythrocyte distribution width (RBC) [Ratio] 13.3 % Normal 11.6-14.6 [facility] Comment on above: Order Comment: 109-1 Performed By: #### L 100.0100 ####[facility] [address] [place], [address] Hematocrit (Bld) [Volume fraction] 42.2 % Normal 40-54 [facility] Comment on above: Order Comment: 109-1 Performed By: #### L 100.0100 ####[facility] [address] [place], [address] Hemoglobin (Bld) [Mass/Vol] 14.0 g/dL Normal 13.0-16.5 [facility] Comment on above: Order Comment: 109-1 Performed By: #### L 100.0100 ####[facility] [address] [place], [address] IG% 0.200 Normal 0.0-0.9 [facility] Comment on above: Order Comment: 109-1 Result Comment: IG% - Immature Granulocytes (promyelocytes, myelocytes andmetamyelocytes) > 1% indicates that a LEFT SHIFT is Present. Performed By: #### L 100.0100 ####[facility] [address] [place], [address] Lymphocytes/100 WBC (Bld) 24.6 % Normal 19-41 [facility] Comment on above: Order Comment: 109-1 Performed By: #### L 100.0100 ####[facility] [address] [place], [address] MCH (RBC) [Entitic mass] 30.1 pg Normal 27.0-32.0 [facility] Comment on above: Order Comment: 109-1 Performed By: #### L 100.0100 ####[facility] [address] [place], [address] MCHC (RBC) [Mass/Vol] 33.2 g/dL Normal 32-36 [facility] Comment on above: Order Comment: 109-1 Performed By: #### L 100.0100 ####[facility] [address] [place], [address] MCV (RBC) [Entitic vol] 90.8 fL Normal 80-94 [facility] Comment on above: Order Comment: 109-1 Performed By: #### L 100.0100 ####[facility] [address] [place], [address] Monocytes/100 WBC (Bld) 7.1 % Normal 0-10 [facility] Comment on above: Order Comment: 109-1 Performed By: #### L 100.0100 ####[facility] [address] [place], [address] Neutrophils/100 WBC (Bld) 66.7 % Normal 47-70 [facility] Comment on above: Order Comment: 109-1 Performed By: #### L 100.0100 ####[facility] [address] [place], [address] Nucleated RBC (Bld) [#/Vol] 0 10*3/uL Normal 0-5 [facility] Comment on above: Order Comment: 109-1 Performed By: #### L 100.0100 ####[facility] [address] [place], [address] Platelet mean volume (Bld) [Entitic vol] 11.2 fL Normal 6.2-12.0 [facility] Comment on above: Order Comment: 109-1 Performed By: #### L 100.0100 ####[facility] [address] [place], [address] Platelets (Bld) [#/Vol] 211 10*3/uL Normal 150-450 [facility] Comment on above: Order Comment: 109-1 Performed By: #### L 100.0100 ####[facility] [address] [place], [address] RBC (Bld) [#/Vol] 4.65 10*6/uL Normal 4.6-6.2 [facility] Comment on above: Order Comment: 109-1 Performed By: #### L 100.0100 ####[facility] [address] [place], [address] RDW SD 44.7 fl High 35.1-43.9 [facility] Comment on above: Order Comment: 109-1 Performed By: #### L 100.0100 ####[facility] [address] [place], [address] WBC (Bld) [#/Vol] 8.1 10*3/uL Normal 4.4-11.0 [facility] Comment on above: Order Comment: 109-1 Performed By: #### L 100.0100 ####[facility] [address] [place], [address] Eosinophil percentageOrdered By: Renard Burgos on 02-24-2025 Eosinophils/100 WBC (Bld) 0.9 % 0-5 [facility] Erythrocyte distribution wid th ratioOrdered By: Renard Burgos on 02-24-2025 Erythrocyte distribution width (RBC) [Ratio] 13.3 % 11.6-14.6 [facility] Erythrocyte distribution wid th standard deviationOrdered By: Renard Burgos on 02-24-2025 Erythrocyte distribution width (RBC) [Ratio] 44.7 fl High 35.1-43.9 [facility] Hematocrit Auto (Bld) [Volum e fraction]Ordered By: Renard Burgos on 02-24-2025 Hematocrit (Bld) [Volume fraction] 42.2 % 40-54 [facility] Hemoglobin measurementOrdere d By: Renard Burgos on 02-24-2025 Hemoglobin (Bld) [Mass/Vol] 14.0 g/dL 13.0-16.5 [facility] Immature granulocytes/100 WB C Auto (Bld)Ordered By: Renard Burgos on 02-24-2025 Immature granulocytes/100 WBC (Bld) 0.200 % 0.0-0.9 [facility] Comment on above: IG% - Immature Granu locytes (promyelocytes, myelocytes and metamyelocytes) > 1% indicates that a LEFT SHIFT is Present. MCV (mean corpuscular volume ) determinationOrdered By: Renard Burgos on 02-24-2025 MCV (RBC) [Entitic vol] 90.8 fL 80-94 [facility] Mean corpuscular hemoglobin (MCH) determinationOrdered By: Renard Burgos on 02-24-2025 MCH (RBC) [Entitic mass] 30.1 pg 27.0-32.0 [facility] Mean corpuscular hemoglobin concentration (MCHC) determinationOrdered By: Renard Burgos on 02-24-2025 MCHC (RBC) [Mass/Vol] 33.2 g/dL 32-36 [facility] Mean platelet volume determi nationOrdered By: Renard Burgos on 02-24-2025 Platelet mean volume (Bld) [Entitic vol] 11.2 fL 6.2-12.0 [facility] Monocyte percentageOrdered B y: Renard Burgos on 02-24-2025 Monocytes/100 WBC (Bld) 7.1 % 0-10 [facility] Neutrophil percentageOrdered By: Renard Burgos on 02-24-2025 Neutrophils/100 WBC (Bld) 66.7 % 47-70 [facility] Nucleated red blood cell per centageOrdered By: Renard Burgos on 02-24-2025 Nucleated RBC/100 WBC (Bld) [Ratio] 0 % 0-5 [facility] Platelet countOrdered By: Garrick Bhatt on 02-24-2025 Platelets (Bld) [#/Vol] 211 10*3/uL 150-450 [facility] RBC Auto (Bld) [#/Vol]Ordere d By: Renard Burgos on 02-24-2025 RBC (Bld) [#/Vol] 4.65 10*6/uL 4.6-6.2 [facility] White blood cell (WBC) count Ordered By: Renard Burgos on 02-24-2025 WBC (Bld) [#/Vol] 8.1 10*3/uL 4.4-11.0 [facility] Anion gap in Serum or Plasma Ordered By: Renard Burgos on 02-21-2025 Anion gap [Moles/Vol] 10 mmol/L - [facility] BUN/creatinine ratioOrdered By: Renard Burgos on 02-21-2025 Urea nitrogen/Creatinine [Mass ratio] 30.1 mg/mg High - [facility] Bilirubin, totalOrdered By: Renard Burgos on 02-21-2025 Bilirubin [Mass/Vol] 0.40 mg/dL 0.00-1.30 [facility] CBC-Complete Blood Cnt No Di ffon 02-21-2025 Erythrocyte distribution width (RBC) [Ratio] 13.7 % Normal 11.6-14.6 [facility] Comment on above: Order Comment: 109.1 Performed By: #### L 500.4100, L501.9985, L100.0500, L500.4050 ####[facility] [address] [place], [address] Hematocrit (Bld) [Volume fraction] 42.1 % Normal 40-54 [facility] Comment on above: Order Comment: 109.1 Performed By: #### L 500.4100, L501.9985, L100.0500, L500.4050 ####[facility] [address] [place], [address] Hemoglobin (Bld) [Mass/Vol] 13.6 g/dL Normal 13.0-16.5 [facility] Comment on above: Order Comment: 109.1 Performed By: #### L 500.4100, L501.9985, L100.0500, L500.4050 ####[facility] [address] [place], [address] MCH (RBC) [Entitic mass] 30.2 pg Normal 27.0-32.0 [facility] Comment on above: Order Comment: 109.1 Performed By: #### L 500.4100, L501.9985, L100.0500, L500.4050 ####[facility] [address] [place], [address] MCHC (RBC) [Mass/Vol] 32.3 g/dL Normal 32-36 [facility] Comment on above: Order Comment: 109.1 Performed By: #### L 500.4100, L501.9985, L100.0500, L500.4050 ####[facility] [address] [place], [address] MCV (RBC) [Entitic vol] 93.3 fL Normal 80-94 [facility] Comment on above: Order Comment: 109.1 Performed By: #### L 500.4100, L501.9985, L100.0500, L500.4050 ####[facility] [address] [place], [address] Platelet mean volume (Bld) [Entitic vol] 11.6 fL Normal 6.2-12.0 [facility] Comment on above: Order Comment: 109.1 Performed By: #### L 500.4100, L501.9985, L100.0500, L500.4050 ####[facility] [address] [place], [address] Platelets (Bld) [#/Vol] 173 10*3/uL Normal 150-450 [facility] Comment on above: Order Comment: 109.1 Performed By: #### L 500.4100, L501.9985, L100.0500, L500.4050 ####[facility] [address] [place], [address] RBC (Bld) [#/Vol] 4.51 10*6/uL Low 4.6-6.2 [facility] Comment on above: Order Comment: 109.1 Performed By: #### L 500.4100, L501.9985, L100.0500, L500.4050 ####[facility] [address] [place], [address] RDW SD 46.5 fl High 35.1-43.9 [facility] Comment on above: Order Comment: 109.1 Performed By: #### L 500.4100, L501.9985, L100.0500, L500.4050 ####[facility] [address] [place], [address] WBC (Bld) [#/Vol] 10.2 10*3/uL Normal 4.4-11.0 [facility] Comment on above: Order Comment: 109.1 Performed By: #### L 500.4100, L501.9985, L100.0500, L500.4050 ####[facility] [address] [place], [address] Calculated very low density lipoprotein (VLDL) cholesterol measurementOrdered By: Renard Burgos on 02-21-2025 Calculated very low density lipoprotein (VLDL) cholesterol measurement 37 mg/dL 5-40 [facility] Carbon dioxide, total [Moles /volume] in Central venous bloodOrdered By: Renard Burgos on 02-21-2025 CO2 [Moles/Vol] 22.4 mmol/L 21.0-32.0 [facility] Chloride assayOrdered By: Garrick Bhatt on 02-21-2025 Chloride [Moles/Vol] 104 mmol/L 98-108 [facility] Comprehensive Metabolic Prof ilon 02-21-2025 Albumin [Mass/Vol] 3.3 g/dL Low 3.4-4.8 [facility] Comment on above: Order Comment: 109.1 Performed By: #### L 500.4100, L501.9985, L100.0500, L500.4050 ####[facility] [address] [place], [address] Albumin/Globulin [Mass ratio] 1.1 {ratio} Normal 0.9-2.4 [facility] Comment on above: Order Comment: 109.1 Performed By: #### L 500.4100, L501.9985, L100.0500, L500.4050 ####[facility] [address] [place], [address] ALK PHOS 137 U/L High 40-129 [facility] Comment on above: Order Comment: 109.1 Performed By: #### L 500.4100, L501.9985, L100.0500, L500.4050 ####[facility] [address] [place], [address] ALT [Catalytic activity/Vol] 22 U/L Normal <=46 [facility] Comment on above: Order Comment: 109.1 Result Comment: Hemo lysis present, Results??could be affected.?? Performed By: #### L 500.4100, L501.9985, L100.0500, L500.4050 ####[facility] [address] [place], [address] AST [Catalytic activity/Vol] 39 U/L High <=37 [facility] Comment on above: Order Comment: 109.1 Result Comment: Hemo lysis present, Results??could be affected.?? Performed By: #### L 500.4100, L501.9985, L100.0500, L500.4050 ####[facility] [address] [place], [address] Bilirubin [Mass/Vol] 0.40 mg/dL Normal 0.00-1.30 [facility] Comment on above: Order Comment: 109.1 Performed By: #### L 500.4100, L501.9985, L100.0500, L500.4050 ####[facility] [address] [place], [address] BUN/CRE 30.1 RATIO High 10-20 [facility] Comment on above: Order Comment: 109.1 Performed By: #### L 500.4100, L501.9985, L100.0500, L500.4050 ####[facility] [address] [place], [address] Calcium [Mass/Vol] 8.6 mg/dL Normal 7.6-11.0 [facility] Comment on above: Order Comment: 109.1 Performed By: #### L 500.4100, L501.9985, L100.0500, L500.4050 ####[facility] [address] [place], [address] Chloride [Moles/Vol] 104 mmol/L Normal 98-108 [facility] Comment on above: Order Comment: 109.1 Performed By: #### L 500.4100, L501.9985, L100.0500, L500.4050 ####[facility] [address], [address] CO2 [Moles/Vol] 22.4 mmol/L Normal 21.0-32.0 [facility] Comment on above: Order Comment: 109.1 Performed By: #### L 500.4100, L501.9985, L100.0500, L500.4050 ####[facility] [address] [place], [address] Creatinine [Mass/Vol] 0.63 mg/dL Low 0.70-1.20 [facility] Comment on above: Order Comment: 109.1 Performed By: #### L 500.4100, L501.9985, L100.0500, L500.4050 ####[facility] [address] [place], [address] GAP 10 Normal 5-15 [facility] Comment on above: Order Comment: 109.1 Performed By: #### L 500.4100, L501.9985, L100.0500, L500.4050 ####[facility] [address] [place], [address] GFR/1.73 sq M.predicted among non-blacks MDRD (S/P/Bld) [Vol rate/Area] 104 mL/min/{1.73_m2} Normal >60 [facility] Comment on above: Order Comment: 109.1 Result Comment: mL/m in/1.73m2 CKD-EPI Creatinine Equation (2020) Performed By: #### L 500.4100, L501.9985, L100.0500, L500.4050 ####[facility] [address] [place], [address] Globulin (S) [Mass/Vol] 3.0 g/dL Normal 2.2-4.2 [facility] Comment on above: Order Comment: 109.1 Performed By: #### L 500.4100, L501.9985, L100.0500, L500.4050 ####[facility] [address] [place], [address] Glucose [Mass/Vol] 104 mg/dL High 70-99 [facility] Comment on above: Order Comment: 109.1 Performed By: #### L 500.4100, L501.9985, L100.0500, L500.4050 ####[facility] [address] [place], [address] Potassium [Moles/Vol] 5.0 mmol/L Normal 3.3-5.1 [facility] Comment on above: Order Comment: 109.1 Result Comment: Hemo lysis present, Results??could be affected.?? Performed By: #### L 500.4100, L501.9985, L100.0500, L500.4050 ####[facility] [address] [place], [address] Sodium [Moles/Vol] 137 mmol/L Normal 133-145 [facility] Comment on above: Order Comment: 109.1 Performed By: #### L 500.4100, L501.9985, L100.0500, L500.4050 ####[facility] [address] [place], [address] T PROT 6.3 g/dL Normal 5.9-8.4 [facility] Comment on above: Order Comment: 109.1 Performed By: #### L 500.4100, L501.9985, L100.0500, L500.4050 ####[facility] [address] [place], [address] Urea nitrogen [Mass/Vol] 19 mg/dL Normal 4-19 [facility] Comment on above: Order Comment: 109.1 Performed By: #### L 500.4100, L501.9985, L100.0500, L500.4050 ####[facility] [address] [place], [address] Erythrocyte distribution wid th ratioOrdered By: Renard Burgos on 02-21-2025 Erythrocyte distribution width (RBC) [Ratio] 13.7 % 11.6-14.6 [facility] Erythrocyte distribution wid th standard deviationOrdered By: Renard Burgos on 02-21-2025 Erythrocyte distribution width (RBC) [Ratio] 46.5 fl High 35.1-43.9 [facility] Glomerular filtration rate ( GFR) estimation/1.73 sq m using serum, plasma, or whole bOrdered By: Renard Burgos on 02-21-2025 GFR/1.73 sq M.predicted among non-blacks MDRD (S/P/Bld) [Vol rate/Area] 104 mL/min/{1.73_m2} >60 [facility] Comment on above: mL/min/1.73m2 CKD-EP I Creatinine Equation (2020) Hematocrit Auto (Bld) [Volum e fraction]Ordered By: Renard Burgos on 02-21-2025 Hematocrit (Bld) [Volume fraction] 42.1 % 40-54 [facility] Hemoglobin A1con 02-21-2025 HbA1c (Bld) [Mass fraction] 5.4 % Normal <=5.6 [facility] Comment on above: Order Comment: 109.1 Result Comment: Norm al < 5.7 % Prediabetic 5.7 - 6.4 % Diabetic >or= 6.5 % Please note range changes. Performed By: #### L 500.4100, L501.9985, L100.0500, L500.4050 ####[facility] [address] [place], [place], [address] Hemoglobin A1c percentageOrd ered By: Renard Burgos on 02-21-2025 HbA1c (Bld) [Mass fraction] 5.4 % <5.7 [facility] Comment on above: Normal < 5.7 % Predi abetic 5.7 - 6.4 % Diabetic >or= 6.5 % Please note range changes. Hemoglobin measurementOrdere d By: Renard Burgos on 02-21-2025 Hemoglobin (Bld) [Mass/Vol] 13.6 g/dL 13.0-16.5 [facility] LDL calc ser/plasOrdered By: Renard Burgos on 02-21-2025 Cholesterol in LDL [Mass/Vol] 75 mg/dL [facility] Comment on above: Xnjelvmmcg=335-342 m g/dL & Higher Osfh=152 mg/dL or greaterSampson Equation 2019 for LDL-C Laboratory - Chemistry and C hemistry - challengeOrdered By: Renard Burgos on 02-21-2025 AST [Catalytic activity/Vol] 39 U/L High <38 [facility] Comment on above: Hemolysis present, R esults could be affected. Lipid Profileon 02-21-2025 CHOL:HDL 4.32 Normal [facility] Comment on above: Order Comment: 109.1 Performed By: #### L 500.4100, L501.9985, L100.0500, L500.4050 ####[facility] [address] [place], [address] Cholesterol [Mass/Vol] 139 mg/dL Normal <=200 [facility] Comment on above: Order Comment: 109.1 Result Comment: Chol esterol level, Desirable <200 mg/dLBorderline high cholesterol 200-239 mg/dLHigh cholesterol >=240 mg/dLRecommendations of the NCEP Adult Treatment Panel for thefollowing risk-cutoff thresholds for the [place] Americanpopulation. Performed By: #### L 500.4100, L501.9985, L100.0500, L500.4050 ####[facility] [address] [place], [address] Cholesterol in HDL [Mass/Vol] 32 mg/dL Low [facility] Comment on above: Order Comment: 109.1 Result Comment: Lucy onal Cholesterol Education Program (NCEP) guidelines:<40 mg/dL: Low HDL-cholesterol (major risk factor for CHD)>= 60 mg/dL: High HDL-cholesterol (negative risk factor forCHD)HDL-cholesterol is affected by a number of factors, e.g.smoking, exercise, hormones, sex and age. Performed By: #### L 500.4100, L501.9985, L100.0500, L500.4050 ####[facility] [address] [place], [address] Cholesterol in LDL [Mass/Vol] 75 mg/dL Normal [facility] Comment on above: Order Comment: 109.1 Result Comment: Bord wvpxfo=998-127 mg/dL Higher Rlci=811 mg/dL or greaterSampson Equation 2020 for LDL-C Performed By: #### L 500.4100, L501.9985, L100.0500, L500.4050 ####[facility] [address] [place], [address] Cholesterol in VLDL [Mass/Vol] 37 mg/dL Normal 5-40 [facility] Comment on above: Order Comment: 109.1 Performed By: #### L 500.4100, L501.9985, L100.0500, L500.4050 ####[facility] [address] [place], [address] Triglyceride [Mass/Vol] 185 mg/dL Normal [facility] Comment on above: Order Comment: 109.1 Result Comment: The drugs N-Acetylcysteine and Metamizole may falselydepress this assay.Normal range: <150 mg/dLBorderline High: 150-199 mg/dLHigh: 200-499 mg/dLVery High: >500 mg/dL Performed By: #### L 500.4100, L501.9985, L100.0500, L500.4050 ####[facility] [address] [place], [address] MCV (mean corpuscular volume ) determinationOrdered By: Renard Burgos on 02-21-2025 MCV (RBC) [Entitic vol] 93.3 fL 80-94 [facility] Mean corpuscular hemoglobin (MCH) determinationOrdered By: Renard Burgos on 02-21-2025 MCH (RBC) [Entitic mass] 30.2 pg 27.0-32.0 [facility] Mean corpuscular hemoglobin concentration (MCHC) determinationOrdered By: Renard Burgos on 02-21-2025 MCHC (RBC) [Mass/Vol] 32.3 g/dL 32-36 [facility] Mean platelet volume determi nationOrdered By: Renard Burgos on 02-21-2025 Platelet mean volume (Bld) [Entitic vol] 11.6 fL 6.2-12.0 [facility] Platelet countOrdered By: Garrick Bhatt on 02-21-2025 Platelets (Bld) [#/Vol] 173 10*3/uL 150-450 [facility] Potassium measurement (mass/ volume)Ordered By: Renard Burgos on 02-21-2025 Potassium (Unsp spec) [Mass/Vol] 5.0 mmol/L 3.3-5.1 [facility] Comment on above: Hemolysis present, R esults could be affected. RBC Auto (Bld) [#/Vol]Ordere d By: Renard Burgos on 02-21-2025 RBC (Bld) [#/Vol] 4.51 10*6/uL Low 4.6-6.2 [facility] Screening total cholesterol/ high density lipoprotein (HDL) cholesterol ratioOrdered By: Renard Burgos on 02-21-2025 Cholesterol.total/Cecilia sterol in HDL [Mass ratio] 4.32 {ratio} [facility] Serum creatinine measurement (mass/volume)Ordered By: Renard Burgos on 02-21-2025 Creatinine [Mass/Vol] 0.63 mg/dL Low 0.70-1.20 [facility] Serum globulin measurementOr dered By: Renard Burgos on 02-21-2025 Globulin (S) [Mass/Vol] 3.0 g/dL 2.2-4.2 [facility] Serum glucose measurement (m ass/volume)Ordered By: Renard Burgos on 02-21-2025 Glucose [Mass/Vol] 104 mg/dL High 70-99 [facility] Serum or plasma alanine kay otransferase (ALT) measurementOrdered By: Renard Burgos on 02-21-2025 ALT [Catalytic activity/Vol] 22 U/L <47 [facility] Comment on above: Hemolysis present, R esults could be affected. Serum or plasma albumin gordy urement (mass/volume)Ordered By: Renard Burgos on 02-21-2025 Albumin [Mass/Vol] 3.3 g/dL Low 3.4-4.8 [facility] Serum or plasma albumin/glob ulin mass ratioOrdered By: Renard Burgos on 02-21-2025 Albumin/Globulin [Mass ratio] 1.1 {ratio} 0.9-2.4 [facility] Serum or plasma alkaline trace sphatase measurementOrdered By: Renard Burgos on 02-21-2025 ALP [Catalytic activity/Vol] 137 U/L High 40-129 [facility] Serum or plasma calcium gordy urement (mass/volume)Ordered By: Renard Burgos on 02-21-2025 Calcium [Mass/Vol] 8.6 mg/dL 7.6-11.0 [facility] Serum or plasma cholesterol in HDL measurement (mass/volume)Ordered By: Renard Burgos on 02-21-2025 Cholesterol in HDL [Mass/Vol] 32 mg/dL Low >40 [facility] Comment on above: National Cholesterol Education Program (NCEP) guidelines:<40 mg/dL: Low HDL-cholesterol (major risk factor for CHD)>= 60 mg/dL: High HDL-cholesterol (negative risk factor for CHD)HDL-cholesterol is affected by a number of factors, e.g. smoking, exercise, hormones, sex and age. Serum or plasma cholesterol measurement (mass/volume)Ordered By: Renard Burgos on 02-21-2025 Cholesterol [Mass/Vol] 139 mg/dL <201 [facility] Comment on above: Cholesterol level, D esirable <200 mg/dLBorderline high cholesterol 200-239 mg/dLHigh cholesterol >=240 mg/dLRecommendations of the NCEP Adult Treatment Panel for the following risk-cutoff thresholds for the [place] population. Serum or plasma urea nitroge n measurement (mass/volume)Ordered By: Renard Burgos on 02-21-2025 Urea nitrogen [Mass/Vol] 19 mg/dL 4-19 [facility] Sodium levelOrdered By: Lamine Burgos on 02-21-2025 Sodium [Moles/Vol] 137 mmol/L 133-145 [facility] Total proteinOrdered By: Lyubov Burgos on 02-21-2025 Protein [Mass/Vol] 6.3 g/dL 5.9-8.4 [facility] Triglycerides measurementOrd ered By: Renard Burgos on 02-21-2025 Triglyceride [Mass/Vol] 185 mg/dL <199 [facility] Comment on above: The drugs N-Acetylcy steine and Metamizole may falsely depress this assay. Normal range: <150 mg/dLBorderline High: 150-199 mg/dLHigh: 200-499 mg/dLVery High: >500 mg/dL White blood cell (WBC) count Ordered By: Renard Burgos on 02-21-2025 WBC (Bld) [#/Vol] 10.2 10*3/uL 4.4-11.0 [facility] Absolute lymphocyte countOrd ered By: Renard Burgos on 02-17-2025 Lymphocytes Auto (Unsp spec) [#/Vol] 2.31 10*3/uL 0.83-4.51 [facility] Absolute neutrophil countOrd ered By: Renard Burgos on 02-17-2025 Neutrophils (Bld) [#/Vol] 5.5 10*3/uL 2.0-7.7 [facility] Automated lymphocyte count a s percentage of total leukocytesOrdered By: Renard Burgos on 02-17-2025 Lymphocytes/100 WBC Auto (Unsp spec) 26.1 % 19-41 [facility] Basophil percentageOrdered B y: Renard Burgos on 02-17-2025 Basophils/100 WBC (Bld) 0.6 % 0-1 [facility] CBC W/Diff, Automatedon 01-30-2024 Absolute Lymph 2.31 X10 3/uL Normal 0.83-4.51 [facility] Comment on above: Order Comment: 109.1 Performed By: #### L 100.0100 ####[facility] [address] [place], [address] Absolute Neut 5.5 X10 3/uL Normal 2.0-7.7 [facility] Comment on above: Order Comment: 109.1 Performed By: #### L 100.0100 ####[facility] [address] [place], [address] Basophils/100 WBC (Bld) 0.6 % Normal 0-1 [facility] Comment on above: Order Comment: 109.1 Performed By: #### L 100.0100 ####[facility] [address] [place], [address] Eosinophils/100 WBC (Bld) 0.9 % Normal 0-5 [facility] Comment on above: Order Comment: 109.1 Performed By: #### L 100.0100 ####[facility] [address] [place], [address] Erythrocyte distribution width (RBC) [Ratio] 13.8 % Normal 11.6-14.6 [facility] Comment on above: Order Comment: 109.1 Performed By: #### L 100.0100 ####[facility] [address] [place], [address] Hematocrit (Bld) [Volume fraction] 43.6 % Normal 40-54 [facility] Comment on above: Order Comment: 109.1 Performed By: #### L 100.0100 ####[facility] [address] [place], [address] Hemoglobin (Bld) [Mass/Vol] 14.2 g/dL Normal 13.0-16.5 [facility] Comment on above: Order Comment: 109.1 Performed By: #### L 100.0100 ####[facility] [address] [place], [address] IG% 0.300 Normal 0.0-0.9 [facility] Comment on above: Order Comment: 109.1 Result Comment: IG% - Immature Granulocytes (promyelocytes, myelocytes andmetamyelocytes) > 1% indicates that a LEFT SHIFT is Present. Performed By: #### L 100.0100 ####[facility] [address] [place], [address] Lymphocytes/100 WBC (Bld) 26.1 % Normal 19-41 [facility] Comment on above: Order Comment: 109.1 Performed By: #### L 100.0100 ####[facility] [address] [place], [address] MCH (RBC) [Entitic mass] 30.4 pg Normal 27.0-32.0 [facility] Comment on above: Order Comment: 109.1 Performed By: #### L 100.0100 ####[facility] [address] [place], [address] MCHC (RBC) [Mass/Vol] 32.6 g/dL Normal 32-36 [facility] Comment on above: Order Comment: 109.1 Performed By: #### L 100.0100 ####[facility] [address] [place], [address] MCV (RBC) [Entitic vol] 93.4 fL Normal 80-94 [facility] Comment on above: Order Comment: 109.1 Performed By: #### L 100.0100 ####[facility] [address] [place], [address] Monocytes/100 WBC (Bld) 10.4 % High 0-10 [facility] Comment on above: Order Comment: 109.1 Performed By: #### L 100.0100 ####[facility] [address] [place], [address] Neutrophils/100 WBC (Bld) 61.7 % Normal 47-70 [facility] Comment on above: Order Comment: 109.1 Performed By: #### L 100.0100 ####[facility] [address] [place], [address] Nucleated RBC (Bld) [#/Vol] 0 10*3/uL Normal 0-5 [facility] Comment on above: Order Comment: 109.1 Performed By: #### L 100.0100 ####[facility] [address] [place], [address] Platelet mean volume (Bld) [Entitic vol] 11.3 fL Normal 6.2-12.0 [facility] Comment on above: Order Comment: 109.1 Performed By: #### L 100.0100 ####[facility] [address] [place], [address] Platelets (Bld) [#/Vol] 197 10*3/uL Normal 150-450 [facility] Comment on above: Order Comment: 109.1 Performed By: #### L 100.0100 ####[facility] [address] [place], [address] RBC (Bld) [#/Vol] 4.67 10*6/uL Normal 4.6-6.2 [facility] Comment on above: Order Comment: 109.1 Performed By: #### L 100.0100 ####[facility] [address] [place], [address] RDW SD 47.2 fl High 35.1-43.9 [facility] Comment on above: Order Comment: 109.1 Performed By: #### L 100.0100 ####[facility] [address] [place], [address] WBC (Bld) [#/Vol] 8.9 10*3/uL Normal 4.4-11.0 [facility] Comment on above: Order Comment: 109.1 Performed By: #### L 100.0100 ####[facility] [address] [place], [address] Eosinophil percentageOrdered By: Renard Burgos on 02-17-2025 Eosinophils/100 WBC (Bld) 0.9 % 0-5 [facility] Erythrocyte distribution wid th ratioOrdered By: Renard Burgos on 02-17-2025 Erythrocyte distribution width (RBC) [Ratio] 13.8 % 11.6-14.6 [facility] Erythrocyte distribution wid th standard deviationOrdered By: Renard Burgos on 02-17-2025 Erythrocyte distribution width (RBC) [Ratio] 47.2 fl High 35.1-43.9 [facility] Hematocrit Auto (Bld) [Volum e fraction]Ordered By: Renard Burgos on 02-17-2025 Hematocrit (Bld) [Volume fraction] 43.6 % 40-54 [facility] Hemoglobin measurementOrdere d By: Renard Burgos on 02-17-2025 Hemoglobin (Bld) [Mass/Vol] 14.2 g/dL 13.0-16.5 [facility] Immature granulocytes/100 WB C Auto (Bld)Ordered By: Renard Burgos on 02-17-2025 Immature granulocytes/100 WBC (Bld) 0.300 % 0.0-0.9 [facility] Comment on above: IG% - Immature Granu locytes (promyelocytes, myelocytes and metamyelocytes) > 1% indicates that a LEFT SHIFT is Present. MCV (mean corpuscular volume ) determinationOrdered By: Renard Burgso on 02-17-2025 MCV (RBC) [Entitic vol] 93.4 fL 80-94 [facility] Mean corpuscular hemoglobin (MCH) determinationOrdered By: Renard Burgos on 02-17-2025 MCH (RBC) [Entitic mass] 30.4 pg 27.0-32.0 [facility] Mean corpuscular hemoglobin concentration (MCHC) determinationOrdered By: Renard Burgos on 02-17-2025 MCHC (RBC) [Mass/Vol] 32.6 g/dL 32-36 [facility] Mean platelet volume determi nationOrdered By: Renard Burgos on 02-17-2025 Platelet mean volume (Bld) [Entitic vol] 11.3 fL 6.2-12.0 [facility] Monocyte percentageOrdered B y: Renard Burgos on 02-17-2025 Monocytes/100 WBC (Bld) 10.4 % High 0-10 [facility] Neutrophil percentageOrdered By: Renard Burgos on 02-17-2025 Neutrophils/100 WBC (Bld) 61.7 % 47-70 [facility] Nucleated red blood cell per centageOrdered By: Renard Burgos on 02-17-2025 Nucleated RBC/100 WBC (Bld) [Ratio] 0 % 0-5 [facility] Platelet countOrdered By: Garrick Bhatt on 02-17-2025 Platelets (Bld) [#/Vol] 197 10*3/uL 150-450 [facility] RBC Auto (Bld) [#/Vol]Ordere d By: Renard Burgos on 02-17-2025 RBC (Bld) [#/Vol] 4.67 10*6/uL 4.6-6.2 [facility] White blood cell (WBC) count Ordered By: Renard Burgos on 02-17-2025 WBC (Bld) [#/Vol] 8.9 10*3/uL 4.4-11.0 [facility] Absolute lymphocyte countOrd ered By: eRnard Burgos on 02-10-2025 Lymphocytes Auto (Unsp spec) [#/Vol] 2.53 10*3/uL 0.83-4.51 [facility] Absolute neutrophil countOrd ered By: Renard Burgos on 02-10-2025 Neutrophils (Bld) [#/Vol] 5.5 10*3/uL 2.0-7.7 [facility] Automated lymphocyte count a s percentage of total leukocytesOrdered By: Renard Hensleyhola on 02-10-2025 Lymphocytes/100 WBC Auto (Unsp spec) 28.0 % 19-41 [facility] Basophil percentageOrdered B y: Renard Hensleyrustam on 02-10-2025 Basophils/100 WBC (Bld) 0.7 % 0-1 [facility] CBC W/Diff, Automatedon 01-29 Absolute Lymph 2.53 X10 3/uL Normal 0.83-4.51 [facility] Comment on above: Order Comment: 109 Performed By: #### L 100.0100 ####[facility] [address] [place], [address] Absolute Neut 5.5 X10 3/uL Normal 2.0-7.7 [facility] Comment on above: Order Comment: 109 Performed By: #### L 100.0100 ####[facility] [address] [place], [address] Basophils/100 WBC (Bld) 0.7 % Normal 0-1 [facility] Comment on above: Order Comment: 109 Performed By: #### L 100.0100 ####[facility] [address] [place], [address] Eosinophils/100 WBC (Bld) 0.8 % Normal 0-5 [facility] Comment on above: Order Comment: 109 Performed By: #### L 100.0100 ####[facility] [address] [place], [address] Erythrocyte distribution width (RBC) [Ratio] 13.6 % Normal 11.6-14.6 [facility] Comment on above: Order Comment: 109 Performed By: #### L 100.0100 ####[facility] [address] [place], [address] Hematocrit (Bld) [Volume fraction] 43.9 % Normal 40-54 [facility] Comment on above: Order Comment: 109 Performed By: #### L 100.0100 ####[facility] [address] [place], [address] Hemoglobin (Bld) [Mass/Vol] 14.2 g/dL Normal 13.0-16.5 [facility] Comment on above: Order Comment: 109 Performed By: #### L 100.0100 ####[facility] [address] [place], [address] IG% 0.300 Normal 0.0-0.9 [facility] Comment on above: Order Comment: 109 Result Comment: IG% - Immature Granulocytes (promyelocytes, myelocytes andmetamyelocytes) > 1% indicates that a LEFT SHIFT is Present. Performed By: #### L 100.0100 ####[facility] [address] [place], [address] Lymphocytes/100 WBC (Bld) 28.0 % Normal 19-41 [facility] Comment on above: Order Comment: 109 Performed By: #### L 100.0100 ####[facility] [address] [place], [address] MCH (RBC) [Entitic mass] 29.6 pg Normal 27.0-32.0 [facility] Comment on above: Order Comment: 109 Performed By: #### L 100.0100 ####[facility] [address] [place], [address] MCHC (RBC) [Mass/Vol] 32.3 g/dL Normal 32-36 [facility] Comment on above: Order Comment: 109 Performed By: #### L 100.0100 ####[facility] [address] [place], [address] MCV (RBC) [Entitic vol] 91.6 fL Normal 80-94 [facility] Comment on above: Order Comment: 109 Performed By: #### L 100.0100 ####[facility] [address] [place], [address] Monocytes/100 WBC (Bld) 8.9 % Normal 0-10 [facility] Comment on above: Order Comment: 109 Performed By: #### L 100.0100 ####[facility] [address] [place], [address] Neutrophils/100 WBC (Bld) 61.3 % Normal 47-70 [facility] Comment on above: Order Comment: 109 Performed By: #### L 100.0100 ####[facility] [address] [place], [address] Nucleated RBC (Bld) [#/Vol] 0 10*3/uL Normal 0-5 [facility] Comment on above: Order Comment: 109 Performed By: #### L 100.0100 ####[facility] [address] [place], [address] Platelet mean volume (Bld) [Entitic vol] 11.3 fL Normal 6.2-12.0 [facility] Comment on above: Order Comment: 109 Performed By: #### L 100.0100 ####[facility] [address] [place], [address] Platelets (Bld) [#/Vol] 217 10*3/uL Normal 150-450 [facility] Comment on above: Order Comment: 109 Performed By: #### L 100.0100 ####[facility] [address] [place], [address] RBC (Bld) [#/Vol] 4.79 10*6/uL Normal 4.6-6.2 [facility] Comment on above: Order Comment: 109 Performed By: #### L 100.0100 ####[facility] [address], [address] RDW SD 45.8 fl High 35.1-43.9 [facility] Comment on above: Order Comment: 109 Performed By: #### L 100.0100 ####[facility] [address] [place], [address] WBC (Bld) [#/Vol] 9.0 10*3/uL Normal 4.4-11.0 [facility] Comment on above: Order Comment: 109 Performed By: #### L 100.0100 ####[facility] [address] [place], [address] Eosinophil percentageOrdered By: Renard Burgos on 02-10-2025 Eosinophils/100 WBC (Bld) 0.8 % 0-5 [facility] Erythrocyte distribution wid th ratioOrdered By: Renard Burgos on 02-10-2025 Erythrocyte distribution width (RBC) [Ratio] 13.6 % 11.6-14.6 [facility] Erythrocyte distribution wid th standard deviationOrdered By: Renard Burgos on 02-10-2025 Erythrocyte distribution width (RBC) [Ratio] 45.8 fl High 35.1-43.9 [facility] Hematocrit Auto (Bld) [Volum e fraction]Ordered By: Renard Burgos on 02-10-2025 Hematocrit (Bld) [Volume fraction] 43.9 % 40-54 [facility] Hemoglobin measurementOrdere d By: Renard Burgos on 02-10-2025 Hemoglobin (Bld) [Mass/Vol] 14.2 g/dL 13.0-16.5 [facility] Immature granulocytes/100 WB C Auto (Bld)Ordered By: Renard Burgos on 02-10-2025 Immature granulocytes/100 WBC (Bld) 0.300 % 0.0-0.9 [facility] Comment on above: IG% - Immature Granu locytes (promyelocytes, myelocytes and metamyelocytes) > 1% indicates that a LEFT SHIFT is Present. MCV (mean corpuscular volume ) determinationOrdered By: Renard Burgos on 02-10-2025 MCV (RBC) [Entitic vol] 91.6 fL 80-94 [facility] Mean corpuscular hemoglobin (MCH) determinationOrdered By: Renard Burgos on 02-10-2025 MCH (RBC) [Entitic mass] 29.6 pg 27.0-32.0 [facility] Mean corpuscular hemoglobin concentration (MCHC) determinationOrdered By: Renard Burgos on 02-10-2025 MCHC (RBC) [Mass/Vol] 32.3 g/dL 32-36 [facility] Mean platelet volume determi nationOrdered By: Renard Burgos on 02-10-2025 Platelet mean volume (Bld) [Entitic vol] 11.3 fL 6.2-12.0 [facility] Monocyte percentageOrdered B y: Renard Burgos on 02-10-2025 Monocytes/100 WBC (Bld) 8.9 % 0-10 [facility] Neutrophil percentageOrdered By: Renard Burgos on 02-10-2025 Neutrophils/100 WBC (Bld) 61.3 % 47-70 [facility] Nucleated red blood cell per centageOrdered By: Renard Burgos on 02-10-2025 Nucleated RBC/100 WBC (Bld) [Ratio] 0 % 0-5 [facility] Platelet countOrdered By: Garrick Bhatt on 02-10-2025 Platelets (Bld) [#/Vol] 217 10*3/uL 150-450 [facility] RBC Auto (Bld) [#/Vol]Ordere d By: Renard Burgos on 02-10-2025 RBC (Bld) [#/Vol] 4.79 10*6/uL 4.6-6.2 [facility] White blood cell (WBC) count Ordered By: Renard Burgos on 02-10-2025 WBC (Bld) [#/Vol] 9.0 10*3/uL 4.4-11.0 [facility] Absolute lymphocyte countOrd ered By: Renard Burgos on 02-03-2025 Lymphocytes Auto (Unsp spec) [#/Vol] 2.12 10*3/uL 0.83-4.51 [facility] Absolute neutrophil countOrd ered By: Renard Burgos on 02-03-2025 Neutrophils (Bld) [#/Vol] 6.0 10*3/uL 2.0-7.7 [facility] Automated lymphocyte count a s percentage of total leukocytesOrdered By: Renard Burgos on 02-03-2025 Lymphocytes/100 WBC Auto (Unsp spec) 22.9 % 19-41 [facility] Basophil percentageOrdered B y: Renard Burgos on 02-03-2025 Basophils/100 WBC (Bld) 0.5 % 0-1 [facility] CBC W/Diff, Automatedon 10-0 Absolute Lymph 2.12 X10 3/uL Normal 0.83-4.51 [facility] Comment on above: Order Comment: 109.1 Performed By: #### L 100.0100 ####[facility] [address] [place], [address] Absolute Neut 6.0 X10 3/uL Normal 2.0-7.7 [facility] Comment on above: Order Comment: 109.1 Performed By: #### L 100.0100 ####[facility] [address] [place], [address] Basophils/100 WBC (Bld) 0.5 % Normal 0-1 [facility] Comment on above: Order Comment: 109.1 Performed By: #### L 100.0100 ####[facility] [address] [place], [address] Eosinophils/100 WBC (Bld) 0.8 % Normal 0-5 [facility] Comment on above: Order Comment: 109.1 Performed By: #### L 100.0100 ####[facility] [address] [place], [address] Erythrocyte distribution width (RBC) [Ratio] 13.2 % Normal 11.6-14.6 [facility] Comment on above: Order Comment: 109.1 Performed By: #### L 100.0100 ####[facility] [address] [place], [address] Hematocrit (Bld) [Volume fraction] 40.1 % Normal 40-54 [facility] Comment on above: Order Comment: 109.1 Performed By: #### L 100.0100 ####[facility] [address] [place], [address] Hemoglobin (Bld) [Mass/Vol] 13.4 g/dL Normal 13.0-16.5 [facility] Comment on above: Order Comment: 109.1 Performed By: #### L 100.0100 ####[facility] [address] [place], [address] IG% 0.400 Normal 0.0-0.9 [facility] Comment on above: Order Comment: 109.1 Result Comment: IG% - Immature Granulocytes (promyelocytes, myelocytes andmetamyelocytes) > 1% indicates that a LEFT SHIFT is Present. Performed By: #### L 100.0100 ####[facility] [address] [place], [address] Lymphocytes/100 WBC (Bld) 22.9 % Normal 19-41 [facility] Comment on above: Order Comment: 109.1 Performed By: #### L 100.0100 ####[facility] [address] [place], [address] MCH (RBC) [Entitic mass] 29.9 pg Normal 27.0-32.0 [facility] Comment on above: Order Comment: 109.1 Performed By: #### L 100.0100 ####[facility] [address] [place], [address] MCHC (RBC) [Mass/Vol] 33.4 g/dL Normal 32-36 [facility] Comment on above: Order Comment: 109.1 Performed By: #### L 100.0100 ####[facility] [address] [place], [address] MCV (RBC) [Entitic vol] 89.5 fL Normal 80-94 [facility] Comment on above: Order Comment: 109.1 Performed By: #### L 100.0100 ####[facility] [address] [place], [address] Monocytes/100 WBC (Bld) 10.8 % High 0-10 [facility] Comment on above: Order Comment: 109.1 Performed By: #### L 100.0100 ####[facility] [address] [place], [address] Neutrophils/100 WBC (Bld) 64.6 % Normal 47-70 [facility] Comment on above: Order Comment: 109.1 Performed By: #### L 100.0100 ####[facility] [address] [place], [address] Nucleated RBC (Bld) [#/Vol] 0 10*3/uL Normal 0-5 [facility] Comment on above: Order Comment: 109.1 Performed By: #### L 100.0100 ####[facility] [address], [address] Platelet mean volume (Bld) [Entitic vol] 11.0 fL Normal 6.2-12.0 [facility] Comment on above: Order Comment: 109.1 Performed By: #### L 100.0100 ####[facility] [address] [place], [address] Platelets (Bld) [#/Vol] 243 10*3/uL Normal 150-450 [facility] Comment on above: Order Comment: 109.1 Performed By: #### L 100.0100 ####[facility] [address] [place], [address] RBC (Bld) [#/Vol] 4.48 10*6/uL Low 4.6-6.2 [facility] Comment on above: Order Comment: 109.1 Performed By: #### L 100.0100 ####[facility] [address] [place], [address] RDW SD 43.0 fl Normal 35.1-43.9 [facility] Comment on above: Order Comment: 109.1 Performed By: #### L 100.0100 ####[facility] [address] [place], [address] WBC (Bld) [#/Vol] 9.3 10*3/uL Normal 4.4-11.0 [facility] Comment on above: Order Comment: 109.1 Performed By: #### L 100.0100 ####[facility] [address] [place], [address] Eosinophil percentageOrdered By: Renard Burgos on 02-03-2025 Eosinophils/100 WBC (Bld) 0.8 % 0-5 [facility] Erythrocyte distribution wid th ratioOrdered By: Renard Burgos on 02-03-2025 Erythrocyte distribution width (RBC) [Ratio] 13.2 % 11.6-14.6 [facility] Erythrocyte distribution wid th standard deviationOrdered By: Renard Burgos on 02-03-2025 Erythrocyte distribution width (RBC) [Ratio] 43.0 fl 35.1-43.9 [facility] Hematocrit Auto (Bld) [Volum e fraction]Ordered By: Renard Burgos on 02-03-2025 Hematocrit (Bld) [Volume fraction] 40.1 % 40-54 [facility] Hemoglobin measurementOrdere d By: Renard Burgos on 02-03-2025 Hemoglobin (Bld) [Mass/Vol] 13.4 g/dL 13.0-16.5 [facility] Immature granulocytes/100 WB C Auto (Bld)Ordered By: Renard Burgos on 02-03-2025 Immature granulocytes/100 WBC (Bld) 0.400 % 0.0-0.9 [facility] Comment on above: IG% - Immature Granu locytes (promyelocytes, myelocytes and metamyelocytes) > 1% indicates that a LEFT SHIFT is Present. MCV (mean corpuscular volume ) determinationOrdered By: Renard Burgos on 02-03-2025 MCV (RBC) [Entitic vol] 89.5 fL 80-94 [facility] Mean corpuscular hemoglobin (MCH) determinationOrdered By: Renard Burgos on 02-03-2025 MCH (RBC) [Entitic mass] 29.9 pg 27.0-32.0 [facility] Mean corpuscular hemoglobin concentration (MCHC) determinationOrdered By: Renard Burgos on 02-03-2025 MCHC (RBC) [Mass/Vol] 33.4 g/dL 32-36 [facility] Mean platelet volume determi nationOrdered By: Renard Burgos on 02-03-2025 Platelet mean volume (Bld) [Entitic vol] 11.0 fL 6.2-12.0 [facility] Monocyte percentageOrdered B y: Renard Burgos on 02-03-2025 Monocytes/100 WBC (Bld) 10.8 % High 0-10 [facility] Neutrophil percentageOrdered By: Renard Burgos on 02-03-2025 Neutrophils/100 WBC (Bld) 64.6 % 47-70 [facility] Nucleated red blood cell per centageOrdered By: Renard Burgos on 02-03-2025 Nucleated RBC/100 WBC (Bld) [Ratio] 0 % 0-5 [facility] Platelet countOrdered By: Garrick Bhatt on 02-03-2025 Platelets (Bld) [#/Vol] 243 10*3/uL 150-450 [facility] RBC Auto (Bld) [#/Vol]Ordere d By: Renrad Burgos on 02-03-2025 RBC (Bld) [#/Vol] 4.48 10*6/uL Low 4.6-6.2 [facility] White blood cell (WBC) count Ordered By: Renard Burgos on 02-03-2025 WBC (Bld) [#/Vol] 9.3 10*3/uL 4.4-11.0 [facility] Absolute lymphocyte countOrd ered By: Renard Burgos on 01-27-2025 Lymphocytes Auto (Unsp spec) [#/Vol] 2.19 10*3/uL 0.83-4.51 [facility] Absolute neutrophil countOrd ered By: Renard Burgos on 01-27-2025 Neutrophils (Bld) [#/Vol] 6.3 10*3/uL 2.0-7.7 [facility] Automated lymphocyte count a s percentage of total leukocytesOrdered By: Renard Burgos on 01-27-2025 Lymphocytes/100 WBC Auto (Unsp spec) 23.7 % 19-41 [facility] Basophil percentageOrdered B y: Renard Burgos on 01-27-2025 Basophils/100 WBC (Bld) 0.3 % 0-1 [facility] CBC W/Diff, Automatedon 12-31 Absolute Lymph 2.19 X10 3/uL Normal 0.83-4.51 [facility] Comment on above: Order Comment: 109.1 Performed By: #### L 100.0100 ####[facility] [address] [place], [address] Absolute Neut 6.3 X10 3/uL Normal 2.0-7.7 [facility] Comment on above: Order Comment: 109.1 Performed By: #### L 100.0100 ####[facility] [address] [place], [address] Basophils/100 WBC (Bld) 0.3 % Normal 0-1 [facility] Comment on above: Order Comment: 109.1 Performed By: #### L 100.0100 ####[facility] [address] [place], [address] Eosinophils/100 WBC (Bld) 0.6 % Normal 0-5 [facility] Comment on above: Order Comment: 109.1 Performed By: #### L 100.0100 ####[facility] [address] [place], [address] Erythrocyte distribution width (RBC) [Ratio] 13.3 % Normal 11.6-14.6 [facility] Comment on above: Order Comment: 109.1 Performed By: #### L 100.0100 ####[facility] [address] [place], [address] Hematocrit (Bld) [Volume fraction] 38.2 % Low 40-54 [facility] Comment on above: Order Comment: 109.1 Performed By: #### L 100.0100 ####[facility] [address] [place], [address] Hemoglobin (Bld) [Mass/Vol] 12.9 g/dL Low 13.0-16.5 [facility] Comment on above: Order Comment: 109.1 Performed By: #### L 100.0100 ####[facility] [address] [place], [address] IG% 0.400 Normal 0.0-0.9 [facility] Comment on above: Order Comment: 109.1 Result Comment: IG% - Immature Granulocytes (promyelocytes, myelocytes andmetamyelocytes) > 1% indicates that a LEFT SHIFT is Present. Performed By: #### L 100.0100 ####[facility] [address] [place], [address] Lymphocytes/100 WBC (Bld) 23.7 % Normal 19-41 [facility] Comment on above: Order Comment: 109.1 Performed By: #### L 100.0100 ####[facility] [address] [place], [address] MCH (RBC) [Entitic mass] 30.2 pg Normal 27.0-32.0 [facility] Comment on above: Order Comment: 109.1 Performed By: #### L 100.0100 ####[facility] [address] [place], [address] MCHC (RBC) [Mass/Vol] 33.8 g/dL Normal 32-36 [facility] Comment on above: Order Comment: 109.1 Performed By: #### L 100.0100 ####[facility] [address] [place], [address] MCV (RBC) [Entitic vol] 89.5 fL Normal 80-94 [facility] Comment on above: Order Comment: 109.1 Performed By: #### L 100.0100 ####[facility] [address] [place], [address] Monocytes/100 WBC (Bld) 6.8 % Normal 0-10 [facility] Comment on above: Order Comment: 109.1 Performed By: #### L 100.0100 ####[facility] [address] [place], [address] Neutrophils/100 WBC (Bld) 68.2 % Normal 47-70 [facility] Comment on above: Order Comment: 109.1 Performed By: #### L 100.0100 ####[facility] [address] [place], [address] Nucleated RBC (Bld) [#/Vol] 0 10*3/uL Normal 0-5 [facility] Comment on above: Order Comment: 109.1 Performed By: #### L 100.0100 ####[facility] [address] [place], [address] Platelet mean volume (Bld) [Entitic vol] 10.6 fL Normal 6.2-12.0 [facility] Comment on above: Order Comment: 109.1 Performed By: #### L 100.0100 ####[facility] [address] [place], [address] Platelets (Bld) [#/Vol] 247 10*3/uL Normal 150-450 [facility] Comment on above: Order Comment: 109.1 Performed By: #### L 100.0100 ####[facility] [address] [place], [address] RBC (Bld) [#/Vol] 4.27 10*6/uL Low 4.6-6.2 [facility] Comment on above: Order Comment: 109.1 Performed By: #### L 100.0100 ####[facility] [address] [place], [address] RDW SD 43.2 fl Normal 35.1-43.9 [facility] Comment on above: Order Comment: 109.1 Performed By: #### L 100.0100 ####[facility] [address] [place], [address] WBC (Bld) [#/Vol] 9.3 10*3/uL Normal 4.4-11.0 [facility] Comment on above: Order Comment: 109.1 Performed By: #### L 100.0100 ####[facility] [address] [place], [address] Eosinophil percentageOrdered By: Renard Burgos on 01-27-2025 Eosinophils/100 WBC (Bld) 0.6 % 0-5 [facility] Erythrocyte distribution wid th ratioOrdered By: Renard Burgos on 01-27-2025 Erythrocyte distribution width (RBC) [Ratio] 13.3 % 11.6-14.6 [facility] Erythrocyte distribution wid th standard deviationOrdered By: Renard Burgos on 01-27-2025 Erythrocyte distribution width (RBC) [Ratio] 43.2 fl 35.1-43.9 [facility] Hematocrit Auto (Bld) [Volum e fraction]Ordered By: Renard Burgos on 01-27-2025 Hematocrit (Bld) [Volume fraction] 38.2 % Low 40-54 [facility] Hemoglobin measurementOrdere d By: Renard Burgos on 01-27-2025 Hemoglobin (Bld) [Mass/Vol] 12.9 g/dL Low 13.0-16.5 [facility] Immature granulocytes/100 WB C Auto (Bld)Ordered By: Renard Burgos on 01-27-2025 Immature granulocytes/100 WBC (Bld) 0.400 % 0.0-0.9 [facility] Comment on above: IG% - Immature Granu locytes (promyelocytes, myelocytes and metamyelocytes) > 1% indicates that a LEFT SHIFT is Present. MCV (mean corpuscular volume ) determinationOrdered By: Renard Burgos on 01-27-2025 MCV (RBC) [Entitic vol] 89.5 fL 80-94 [facility] Mean corpuscular hemoglobin (MCH) determinationOrdered By: Renard Burgos on 01-27-2025 MCH (RBC) [Entitic mass] 30.2 pg 27.0-32.0 [facility] Mean corpuscular hemoglobin concentration (MCHC) determinationOrdered By: Renard Burgos on 01-27-2025 MCHC (RBC) [Mass/Vol] 33.8 g/dL 32-36 [facility] Mean platelet volume determi nationOrdered By: Renard Burgos on 01-27-2025 Platelet mean volume (Bld) [Entitic vol] 10.6 fL 6.2-12.0 [facility] Monocyte percentageOrdered B y: Renard Burgos on 01-27-2025 Monocytes/100 WBC (Bld) 6.8 % 0-10 [facility] Neutrophil percentageOrdered By: Renard Burgos on 01-27-2025 Neutrophils/100 WBC (Bld) 68.2 % 47-70 [facility] Nucleated red blood cell per centageOrdered By: Renard Burgos on 01-27-2025 Nucleated RBC/100 WBC (Bld) [Ratio] 0 % 0-5 [facility] Platelet countOrdered By: Garrick Bhatt on 01-27-2025 Platelets (Bld) [#/Vol] 247 10*3/uL 150-450 [facility] RBC Auto (Bld) [#/Vol]Ordere d By: Renard Burgos on 01-27-2025 RBC (Bld) [#/Vol] 4.27 10*6/uL Low 4.6-6.2 [facility] White blood cell (WBC) count Ordered By: Renard Burgos on 01-27-2025 WBC (Bld) [#/Vol] 9.3 10*3/uL 4.4-11.0 [facility] Absolute lymphocyte countOrd ered By: Renard Burgos on 01-20-2025 Lymphocytes Auto (Unsp spec) [#/Vol] 2.11 10*3/uL 0.83-4.51 [facility] Absolute neutrophil countOrd ered By: Renard Burgos on 01-20-2025 Neutrophils (Bld) [#/Vol] 4.5 10*3/uL 2.0-7.7 [facility] Automated lymphocyte count a s percentage of total leukocytesOrdered By: Renard Hensleyrustam on 01-20-2025 Lymphocytes/100 WBC Auto (Unsp spec) 27.9 % 19-41 [facility] Basophil percentageOrdered B y: Renard Burgos on 01-20-2025 Basophils/100 WBC (Bld) 0.5 % 0-1 [facility] CBC W/Diff, Automatedon 12-31 Absolute Lymph 2.11 X10 3/uL Normal 0.83-4.51 [facility] Comment on above: Order Comment: 109.1 Performed By: #### L 100.0100 ####[facility] [address] [place], [address] Absolute Neut 4.5 X10 3/uL Normal 2.0-7.7 [facility] Comment on above: Order Comment: 109.1 Performed By: #### L 100.0100 ####[facility] [address] [place], [address] Basophils/100 WBC (Bld) 0.5 % Normal 0-1 [facility] Comment on above: Order Comment: 109.1 Performed By: #### L 100.0100 ####[facility] [address] [place], [address] Eosinophils/100 WBC (Bld) 1.1 % Normal 0-5 [facility] Comment on above: Order Comment: 109.1 Performed By: #### L 100.0100 ####[facility] [address] [place], [address] Erythrocyte distribution width (RBC) [Ratio] 13.1 % Normal 11.6-14.6 [facility] Comment on above: Order Comment: 109.1 Performed By: #### L 100.0100 ####[facility] [address] [place], [address] Hematocrit (Bld) [Volume fraction] 36.3 % Low 40-54 [facility] Comment on above: Order Comment: 109.1 Performed By: #### L 100.0100 ####[facility] [address] [place], [address] Hemoglobin (Bld) [Mass/Vol] 11.6 g/dL Low 13.0-16.5 [facility] Comment on above: Order Comment: 109.1 Performed By: #### L 100.0100 ####[facility] [address] [place], [address] IG% 0.700 Normal 0.0-0.9 [facility] Comment on above: Order Comment: 109.1 Result Comment: IG% - Immature Granulocytes (promyelocytes, myelocytes andmetamyelocytes) > 1% indicates that a LEFT SHIFT is Present. Performed By: #### L 100.0100 ####[facility] [address] [place], [address] Lymphocytes/100 WBC (Bld) 27.9 % Normal 19-41 [facility] Comment on above: Order Comment: 109.1 Performed By: #### L 100.0100 ####[facility] [address] [place], [address] MCH (RBC) [Entitic mass] 29.6 pg Normal 27.0-32.0 [facility] Comment on above: Order Comment: 109.1 Performed By: #### L 100.0100 ####[facility] [address] [place], [address] MCHC (RBC) [Mass/Vol] 32.0 g/dL Normal 32-36 [facility] Comment on above: Order Comment: 109.1 Performed By: #### L 100.0100 ####[facility] [address], [address] MCV (RBC) [Entitic vol] 92.6 fL Normal 80-94 [facility] Comment on above: Order Comment: 109.1 Performed By: #### L 100.0100 ####[facility] [address] [place], [address] Monocytes/100 WBC (Bld) 10.1 % High 0-10 [facility] Comment on above: Order Comment: 109.1 Performed By: #### L 100.0100 ####[facility] [address] [place], [address] Neutrophils/100 WBC (Bld) 59.7 % Normal 47-70 [facility] Comment on above: Order Comment: 109.1 Performed By: #### L 100.0100 ####[facility] [address] [place], [address] Nucleated RBC (Bld) [#/Vol] 0 10*3/uL Normal 0-5 [facility] Comment on above: Order Comment: 109.1 Performed By: #### L 100.0100 ####[facility] [address] [place], [address] Platelet mean volume (Bld) [Entitic vol] 10.6 fL Normal 6.2-12.0 [facility] Comment on above: Order Comment: 109.1 Performed By: #### L 100.0100 ####[facility] [address] [place], [address] Platelets (Bld) [#/Vol] 248 10*3/uL Normal 150-450 [facility] Comment on above: Order Comment: 109.1 Performed By: #### L 100.0100 ####[facility] [address] [place], [address] RBC (Bld) [#/Vol] 3.92 10*6/uL Low 4.6-6.2 [facility] Comment on above: Order Comment: 109.1 Performed By: #### L 100.0100 ####[facility] [address] [place], [address] RDW SD 44.6 fl High 35.1-43.9 [facility] Comment on above: Order Comment: 109.1 Performed By: #### L 100.0100 ####[facility] [address] [place], [address] WBC (Bld) [#/Vol] 7.6 10*3/uL Normal 4.4-11.0 [facility] Comment on above: Order Comment: 109.1 Performed By: #### L 100.0100 ####[facility] [address] [facility] [place], [address] Eosinophil percentageOrdered By: Renard Burgos on 01-20-2025 Eosinophils/100 WBC (Bld) 1.1 % 0-5 [facility] Erythrocyte distribution wid th ratioOrdered By: Renard Burgos on 01-20-2025 Erythrocyte distribution width (RBC) [Ratio] 13.1 % 11.6-14.6 [facility] Erythrocyte distribution wid th standard deviationOrdered By: Renard Burgos on 01-20-2025 Erythrocyte distribution width (RBC) [Ratio] 44.6 fl High 35.1-43.9 [facility] Hematocrit Auto (Bld) [Volum e fraction]Ordered By: Renard Burgos on 01-20-2025 Hematocrit (Bld) [Volume fraction] 36.3 % Low 40-54 [facility] Hemoglobin measurementOrdere d By: Renard Burgos on 01-20-2025 Hemoglobin (Bld) [Mass/Vol] 11.6 g/dL Low 13.0-16.5 [facility] Immature granulocytes/100 WB C Auto (Bld)Ordered By: Renard Burgos on 01-20-2025 Immature granulocytes/100 WBC (Bld) 0.700 % 0.0-0.9 [facility] Comment on above: IG% - Immature Granu locytes (promyelocytes, myelocytes and metamyelocytes) > 1% indicates that a LEFT SHIFT is Present. MCV (mean corpuscular volume ) determinationOrdered By: Renard Burgos on 01-20-2025 MCV (RBC) [Entitic vol] 92.6 fL 80-94 [facility] Mean corpuscular hemoglobin (MCH) determinationOrdered By: Renard Burgos on 01-20-2025 MCH (RBC) [Entitic mass] 29.6 pg 27.0-32.0 [facility] Mean corpuscular hemoglobin concentration (MCHC) determinationOrdered By: Renard Burgos on 01-20-2025 MCHC (RBC) [Mass/Vol] 32.0 g/dL 32-36 [facility] Mean platelet volume determi nationOrdered By: Renard Burgos on 01-20-2025 Platelet mean volume (Bld) [Entitic vol] 10.6 fL 6.2-12.0 [facility] Monocyte percentageOrdered B y: Renard Burgos on 01-20-2025 Monocytes/100 WBC (Bld) 10.1 % High 0-10 [facility] Neutrophil percentageOrdered By: Renard Burgos on 01-20-2025 Neutrophils/100 WBC (Bld) 59.7 % 47-70 [facility] Nucleated red blood cell per centageOrdered By: Renard Burgos on 01-20-2025 Nucleated RBC/100 WBC (Bld) [Ratio] 0 % 0-5 [facility] Platelet countOrdered By: Garrick Bhatt on 01-20-2025 Platelets (Bld) [#/Vol] 248 10*3/uL 150-450 [facility] RBC Auto (Bld) [#/Vol]Ordere d By: Renard Burgos on 01-20-2025 RBC (Bld) [#/Vol] 3.92 10*6/uL Low 4.6-6.2 [facility] White blood cell (WBC) count Ordered By: Renard Burgos on 01-20-2025 WBC (Bld) [#/Vol] 7.6 10*3/uL 4.4-11.0 [facility] Absolute lymphocyte countOrd ered By: Renard Burgos on 01-13-2025 Lymphocytes Auto (Unsp spec) [#/Vol] 1.91 10*3/uL 0.83-4.51 [facility] Absolute neutrophil countOrd ered By: Renard Burgos on 01-13-2025 Neutrophils (Bld) [#/Vol] 6.4 10*3/uL 2.0-7.7 [facility] Automated lymphocyte count a s percentage of total leukocytesOrdered By: Renard Burgos on 01-13-2025 Lymphocytes/100 WBC Auto (Unsp spec) 20.7 % 19-41 [facility] Basophil percentageOrdered B y: Renard Burgos on 01-13-2025 Basophils/100 WBC (Bld) 0.5 % 0-1 [facility] CBC W/Diff, Automatedon 12-30 Absolute Lymph 1.91 X10 3/uL Normal 0.83-4.51 [facility] Comment on above: Order Comment: 109-1 Performed By: #### L 100.0100 ####[facility] [address] [place], [address] Absolute Neut 6.4 X10 3/uL Normal 2.0-7.7 [facility] Comment on above: Order Comment: 109-1 Performed By: #### L 100.0100 ####[facility] [address] [place], [address] Basophils/100 WBC (Bld) 0.5 % Normal 0-1 [facility] Comment on above: Order Comment: 109-1 Performed By: #### L 100.0100 ####[facility] [address] [place], [address] Eosinophils/100 WBC (Bld) 0.8 % Normal 0-5 [facility] Comment on above: Order Comment: 109-1 Performed By: #### L 100.0100 ####[facility] [address] [place], [address] Erythrocyte distribution width (RBC) [Ratio] 13.2 % Normal 11.6-14.6 [facility] Comment on above: Order Comment: 109-1 Performed By: #### L 100.0100 ####[facility] [address] [place], [address] Hematocrit (Bld) [Volume fraction] 40.2 % Normal 40-54 [facility] Comment on above: Order Comment: 109-1 Performed By: #### L 100.0100 ####[facility] [address] [place], [address] Hemoglobin (Bld) [Mass/Vol] 13.3 g/dL Normal 13.0-16.5 [facility] Comment on above: Order Comment: 109-1 Performed By: #### L 100.0100 ####[facility] [address] [place], [address] IG% 0.300 Normal 0.0-0.9 [facility] Comment on above: Order Comment: 109-1 Result Comment: IG% - Immature Granulocytes (promyelocytes, myelocytes andmetamyelocytes) > 1% indicates that a LEFT SHIFT is Present. Performed By: #### L 100.0100 ####[facility] [address] [place], [address] Lymphocytes/100 WBC (Bld) 20.7 % Normal 19-41 [facility] Comment on above: Order Comment: 109-1 Performed By: #### L 100.0100 ####[facility] [address] [place], [address] MCH (RBC) [Entitic mass] 30.4 pg Normal 27.0-32.0 [facility] Comment on above: Order Comment: 109-1 Performed By: #### L 100.0100 ####[facility] [address] [place], [address] MCHC (RBC) [Mass/Vol] 33.1 g/dL Normal 32-36 [facility] Comment on above: Order Comment: 109-1 Performed By: #### L 100.0100 ####[facility] [address] [place], [address] MCV (RBC) [Entitic vol] 92.0 fL Normal 80-94 [facility] Comment on above: Order Comment: 109-1 Performed By: #### L 100.0100 ####[facility] [address] [place], [address] Monocytes/100 WBC (Bld) 8.1 % Normal 0-10 [facility] Comment on above: Order Comment: 109-1 Performed By: #### L 100.0100 ####[facility] [address] [place], [address] Neutrophils/100 WBC (Bld) 69.6 % Normal 47-70 [facility] Comment on above: Order Comment: 109-1 Performed By: #### L 100.0100 ####[facility] [address] [place], [address] Nucleated RBC (Bld) [#/Vol] 0 10*3/uL Normal 0-5 [facility] Comment on above: Order Comment: 109-1 Performed By: #### L 100.0100 ####[facility] [address] [place], [address] Platelet mean volume (Bld) [Entitic vol] 11.5 fL Normal 6.2-12.0 [facility] Comment on above: Order Comment: 109-1 Performed By: #### L 100.0100 ####[facility] [address] [place], [address] Platelets (Bld) [#/Vol] 198 10*3/uL Normal 150-450 [facility] Comment on above: Order Comment: 109-1 Performed By: #### L 100.0100 ####[facility] [address] [place], [address] RBC (Bld) [#/Vol] 4.37 10*6/uL Low 4.6-6.2 [facility] Comment on above: Order Comment: 109-1 Performed By: #### L 100.0100 ####[facility] [address] [place], [address] RDW SD 44.6 fl High 35.1-43.9 [facility] Comment on above: Order Comment: 109-1 Performed By: #### L 100.0100 ####[facility] [address] [place], [address] WBC (Bld) [#/Vol] 9.2 10*3/uL Normal 4.4-11.0 [facility] Comment on above: Order Comment: 109-1 Performed By: #### L 100.0100 ####[facility] [address] [place], [address] Eosinophil percentageOrdered By: Renard Burgos on 01-13-2025 Eosinophils/100 WBC (Bld) 0.8 % 0-5 [facility] Erythrocyte distribution wid th ratioOrdered By: Renard Burgos on 01-13-2025 Erythrocyte distribution width (RBC) [Ratio] 13.2 % 11.6-14.6 [facility] Erythrocyte distribution wid th standard deviationOrdered By: Renard Burgos on 01-13-2025 Erythrocyte distribution width (RBC) [Ratio] 44.6 fl High 35.1-43.9 [facility] Hematocrit Auto (Bld) [Volum e fraction]Ordered By: Renard Burgos on 01-13-2025 Hematocrit (Bld) [Volume fraction] 40.2 % 40-54 [facility] Hemoglobin measurementOrdere d By: Renard Burgos on 01-13-2025 Hemoglobin (Bld) [Mass/Vol] 13.3 g/dL 13.0-16.5 [facility] Immature granulocytes/100 WB C Auto (Bld)Ordered By: Renard Burgos on 01-13-2025 Immature granulocytes/100 WBC (Bld) 0.300 % 0.0-0.9 [facility] Comment on above: IG% - Immature Granu locytes (promyelocytes, myelocytes and metamyelocytes) > 1% indicates that a LEFT SHIFT is Present. MCV (mean corpuscular volume ) determinationOrdered By: Renard Burgos on 01-13-2025 MCV (RBC) [Entitic vol] 92.0 fL 80-94 [facility] Mean corpuscular hemoglobin (MCH) determinationOrdered By: Renard Burgos on 01-13-2025 MCH (RBC) [Entitic mass] 30.4 pg 27.0-32.0 [facility] Mean corpuscular hemoglobin concentration (MCHC) determinationOrdered By: Renard Burgos on 01-13-2025 MCHC (RBC) [Mass/Vol] 33.1 g/dL 32-36 [facility] Mean platelet volume determi nationOrdered By: Renard Burgos on 01-13-2025 Platelet mean volume (Bld) [Entitic vol] 11.5 fL 6.2-12.0 [facility] Monocyte percentageOrdered B y: Renard Burgos on 01-13-2025 Monocytes/100 WBC (Bld) 8.1 % 0-10 [facility] Neutrophil percentageOrdered By: Renard Burgos on 01-13-2025 Neutrophils/100 WBC (Bld) 69.6 % 47-70 [facility] Nucleated red blood cell per centageOrdered By: Renard Burgos on 01-13-2025 Nucleated RBC/100 WBC (Bld) [Ratio] 0 % 0-5 [facility] Platelet countOrdered By: Garrick Bhatt on 01-13-2025 Platelets (Bld) [#/Vol] 198 10*3/uL 150-450 [facility] RBC Auto (Bld) [#/Vol]Ordere d By: Renard Burgos on 01-13-2025 RBC (Bld) [#/Vol] 4.37 10*6/uL Low 4.6-6.2 [facility] White blood cell (WBC) count Ordered By: Renard Burgos on 01-13-2025 WBC (Bld) [#/Vol] 9.2 10*3/uL 4.4-11.0 [facility] Anion gap in Serum or Plasma Ordered By: Renard Burgos on 01-10-2025 Anion gap [Moles/Vol] 9 mmol/L 5-15 [facility] BUN/creatinine ratioOrdered By: Renard Burgos on 01-10-2025 Urea nitrogen/Creatinine [Mass ratio] 27.7 mg/mg High - [facility] Basic Metabolic Profile (BMP )on 01-10-2025 BUN/CRE 27.7 RATIO High - [facility] Comment on above: Order Comment: 109.1 Performed By: #### L 500.2500 ####[facility] [address] [place], [address] Calcium [Mass/Vol] 8.2 mg/dL Normal 7.6-11.0 [facility] Comment on above: Order Comment: 109.1 Performed By: #### L 500.2500 ####[facility] [address] [place], [address] Chloride [Moles/Vol] 106 mmol/L Normal 98-108 [facility] Comment on above: Order Comment: 109.1 Performed By: #### L 500.2500 ####[facility] [address] [place], [address] CO2 [Moles/Vol] 25.6 mmol/L Normal 21.0-32.0 [facility] Comment on above: Order Comment: 109.1 Performed By: #### L 500.2500 ####[facility] [address] [place], [address] Creatinine [Mass/Vol] 0.54 mg/dL Low 0.70-1.20 [facility] Comment on above: Order Comment: 109.1 Performed By: #### L 500.2500 ####[facility] [address] [place], [address] GAP 9 Normal 5-15 [facility] Comment on above: Order Comment: 109.1 Performed By: #### L 500.2500 ####[facility] [address] [place], [address] GFR/1.73 sq M.predicted among non-blacks MDRD (S/P/Bld) [Vol rate/Area] 109 mL/min/{1.73_m2} Normal >60 [facility] Comment on above: Order Comment: 109.1 Result Comment: mL/m in/1.73m2 CKD-EPI Creatinine Equation (2020) Performed By: #### L 500.2500 ####[facility] [address] [place], [address] Glucose [Mass/Vol] 126 mg/dL High 70-99 [facility] Comment on above: Order Comment: 109.1 Performed By: #### L 500.2500 ####[facility] [address] [place], [address] Potassium [Moles/Vol] 3.8 mmol/L Normal 3.3-5.1 [facility] Comment on above: Order Comment: 109.1 Performed By: #### L 500.2500 ####[facility] [address] [place], [address] Sodium [Moles/Vol] 140 mmol/L Normal 133-145 [facility] Comment on above: Order Comment: 109.1 Performed By: #### L 500.2500 ####[facility] [address] [place], [address] Urea nitrogen [Mass/Vol] 15 mg/dL Normal 4-19 [facility] Comment on above: Order Comment: 109.1 Performed By: #### L 500.2500 ####[facility] [address] [place], [address] Carbon dioxide, total [Moles /volume] in Central venous bloodOrdered By: Renard Burgos on 01-10-2025 CO2 [Moles/Vol] 25.6 mmol/L 21.0-32.0 [facility] Chloride assayOrdered By: Garrick Bhatt on 01-10-2025 Chloride [Moles/Vol] 106 mmol/L 98-108 [facility] Glomerular filtration rate ( GFR) estimation/1.73 sq m using serum, plasma, or whole bOrdered By: Renard Burgos on 01-10-2025 GFR/1.73 sq M.predicted among non-blacks MDRD (S/P/Bld) [Vol rate/Area] 109 mL/min/{1.73_m2} >60 [facility] Comment on above: mL/min/1.73m2 CKD-EP I Creatinine Equation (2020) Potassium measurement (mass/ volume)Ordered By: Renard Burgos on 01-10-2025 Potassium (Unsp spec) [Mass/Vol] 3.8 mmol/L 3.3-5.1 [facility] Serum creatinine measurement (mass/volume)Ordered By: Renard Burgos on 01-10-2025 Creatinine [Mass/Vol] 0.54 mg/dL Low 0.70-1.20 [facility] Serum glucose measurement (m ass/volume)Ordered By: Renard Burgos on 01-10-2025 Glucose [Mass/Vol] 126 mg/dL High 70-99 [facility] Serum or plasma calcium gordy urement (mass/volume)Ordered By: Renard Burgos on 01-10-2025 Calcium [Mass/Vol] 8.2 mg/dL 7.6-11.0 [facility] Serum or plasma urea nitroge n measurement (mass/volume)Ordered By: Renard Burgos on 01-10-2025 Urea nitrogen [Mass/Vol] 15 mg/dL 4-19 [facility] Sodium levelOrdered By: Lamine Burgos on 01-10-2025 Sodium [Moles/Vol] 140 mmol/L 133-145 [facility] Absolute lymphocyte countOrd ered By: Renard Burgos on 01-06-2025 Lymphocytes Auto (Unsp spec) [#/Vol] 2.29 10*3/uL 0.83-4.51 [facility] Absolute neutrophil countOrd ered By: Renard Burgos on 01-06-2025 Neutrophils (Bld) [#/Vol] 5.6 10*3/uL 2.0-7.7 [facility] Automated lymphocyte count a s percentage of total leukocytesOrdered By: Renard Burgos on 01-06-2025 Lymphocytes/100 WBC Auto (Unsp spec) 26.1 % 19-41 [facility] Basophil percentageOrdered B y: Renard Burgos on 01-06-2025 Basophils/100 WBC (Bld) 0.6 % 0-1 [facility] CBC W/Diff, Automatedon PLT EST ADEQUATE Normal ADEQ [facility] Comment on above: Order Comment: 109.1 Performed By: #### L 100.0100 ####[facility] [address] [place], [address] Eosinophil percentageOrdered By: Renard Burgos on 01-06-2025 Eosinophils/100 WBC (Bld) 1.1 % 0-5 [facility] Erythrocyte distribution wid th ratioOrdered By: Renard Burgos on 01-06-2025 Erythrocyte distribution width (RBC) [Ratio] 13.2 % 11.6-14.6 [facility] Erythrocyte distribution wid th standard deviationOrdered By: Renard Burgos on 01-06-2025 Erythrocyte distribution width (RBC) [Ratio] 44.2 fl High 35.1-43.9 [facility] Hematocrit Auto (Bld) [Volum e fraction]Ordered By: Renard Burgos on 01-06-2025 Hematocrit (Bld) [Volume fraction] 43.3 % 40-54 [facility] Hemoglobin measurementOrdere d By: Renard Burgos on 01-06-2025 Hemoglobin (Bld) [Mass/Vol] 14.2 g/dL 13.0-16.5 [facility] Immature granulocytes/100 WB C Auto (Bld)Ordered By: Renard Burgos on 01-06-2025 Immature granulocytes/100 WBC (Bld) 0.300 % 0.0-0.9 [facility] Comment on above: IG% - Immature Granu locytes (promyelocytes, myelocytes and metamyelocytes) > 1% indicates that a LEFT SHIFT is Present. MCV (mean corpuscular volume ) determinationOrdered By: Renard Burgos on 01-06-2025 MCV (RBC) [Entitic vol] 92.7 fL 80-94 [facility] Mean corpuscular hemoglobin (MCH) determinationOrdered By: Renard Burgos on 01-06-2025 MCH (RBC) [Entitic mass] 30.4 pg 27.0-32.0 [facility] Mean corpuscular hemoglobin concentration (MCHC) determinationOrdered By: Renard Burgos on 01-06-2025 MCHC (RBC) [Mass/Vol] 32.8 g/dL 32-36 [facility] Mean platelet volume determi nationOrdered By: Renard Burgos on 01-06-2025 Platelet mean volume (Bld) [Entitic vol] 11.5 fL 6.2-12.0 [facility] Monocyte percentageOrdered B y: Renard Burgos on 01-06-2025 Monocytes/100 WBC (Bld) 8.5 % 0-10 [facility] Neutrophil percentageOrdered By: Renard Burgos on 01-06-2025 Neutrophils/100 WBC (Bld) 63.4 % 47-70 [facility] Nucleated red blood cell per centageOrdered By: Renard Burgos on 01-06-2025 Nucleated RBC/100 WBC (Bld) [Ratio] 0 % 0-5 [facility] Platelet countOrdered By: Garrick Bhatt on 01-06-2025 Platelets (Bld) [#/Vol] 197 10*3/uL 150-450 [facility] Platelet estimateOrdered By: Renard Burgos on 01-06-2025 Platelets LM Ql (Bld) ADEQUATE ADEQ [facility] RBC Auto (Bld) [#/Vol]Ordere d By: Renard Burgos on 01-06-2025 RBC (Bld) [#/Vol] 4.67 10*6/uL 4.6-6.2 [facility] White blood cell (WBC) count Ordered By: Renard Burgos on 01-06-2025 WBC (Bld) [#/Vol] 8.8 10*3/uL 4.4-11.0 [facility] Absolute lymphocyte countOrd ered By: Renard Burgos on 12-31-2024 Lymphocytes Auto (Unsp spec) [#/Vol] 1.87 10*3/uL 0.83-4.51 [facility] Absolute neutrophil countOrd ered By: Renard Burgos on 12-31-2024 Neutrophils (Bld) [#/Vol] 5.3 10*3/uL 2.0-7.7 [facility] Automated blood erythrocyte countOrdered By: Renard Burgos on 12-31-2024 RBC (Bld) [#/Vol] 4.47 10*6/uL Low 4.6-6.2 [facility] Comment on above: Order Comment: 109.1 Performed By: #### L 100.0100 ####[facility] [address] [place], [place], [address] Automated blood hematocrit ( percentage)Ordered By: Renard Burgos on 12-31-2024 Hematocrit (Bld) [Volume fraction] 41.3 % Normal 40-54 [facility] Comment on above: Order Comment: 109.1 Performed By: #### L 100.0100 ####[facility] [address] [place], [address] Automated lymphocyte count a s percentage of total leukocytesOrdered By: Renard Burgos on 12-31-2024 Lymphocytes/100 WBC Auto (Unsp spec) 23.4 % 19-41 [facility] Basophil percentageOrdered B y: Renard Burgos on 12-31-2024 Basophils/100 WBC (Bld) 0.4 % Normal 0-1 [facility] Comment on above: Order Comment: 109.1 Performed By: #### L 100.0100 ####[facility] [address] [place], [address] CBC W/Diff, Automatedon - Absolute Lymph 1.87 X10 3/uL Normal 0.83-4.51 [facility] Comment on above: Order Comment: 109.1 Performed By: #### L 100.0100 ####[facility] [address] [place], [address] Absolute Neut 5.3 X10 3/uL Normal 2.0-7.7 [facility] Comment on above: Order Comment: 109.1 Performed By: #### L 100.0100 ####[facility] [address] [place], [address] IG% 0.400 Normal 0.0-0.9 [facility] Comment on above: Order Comment: 109.1 Result Comment: IG% - Immature Granulocytes (promyelocytes, myelocytes andmetamyelocytes) > 1% indicates that a LEFT SHIFT is Present. Performed By: #### L 100.0100 ####[facility] [address] [place], [address] Lymphocytes/100 WBC (Bld) 23.4 % Normal 19-41 [facility] Comment on above: Order Comment: 109.1 Performed By: #### L 100.0100 ####[facility] [address] [place], [address] Nucleated RBC (Bld) [#/Vol] 0 10*3/uL Normal 0-5 [facility] Comment on above: Order Comment: 109.1 Performed By: #### L 100.0100 ####[facility] [address] [place], [address] RDW SD 43.8 fl Normal 35.1-43.9 [facility] Comment on above: Order Comment: 109.1 Performed By: #### L 100.0100 ####[facility] [address] [place], [address] Eosinophil percentageOrdered By: Renard Burgos on 12-31-2024 Eosinophils/100 WBC (Bld) 0.6 % Normal 0-5 [facility] Comment on above: Order Comment: 109.1 Performed By: #### L 100.0100 ####[facility] [address] [place], [address] Erythrocyte distribution wid th ratioOrdered By: Renard Burgos on 12-31-2024 Erythrocyte distribution width (RBC) [Ratio] 13.1 % Normal 11.6-14.6 [facility] Comment on above: Order Comment: 109.1 Performed By: #### L 100.0100 ####[facility] [address] [place], [place], [address] Erythrocyte distribution wid th standard deviationOrdered By: Renard Burgos on 12-31-2024 Erythrocyte distribution width (RBC) [Ratio] 43.8 fl 35.1-43.9 [facility] Hemoglobin measurementOrdere d By: Renard Burgos on 12-31-2024 Hemoglobin (Bld) [Mass/Vol] 13.4 g/dL Normal 13.0-16.5 [facility] Comment on above: Order Comment: 109.1 Performed By: #### L 100.0100 ####[facility] [address] [place], [address] Immature granulocytes/100 WB C Auto (Bld)Ordered By: Renard Burgos on 12-31-2024 Immature granulocytes/100 WBC (Bld) 0.400 % 0.0-0.9 [facility] Comment on above: IG% - Immature Granu locytes (promyelocytes, myelocytes and metamyelocytes) > 1% indicates that a LEFT SHIFT is Present. MCV (mean corpuscular volume ) determinationOrdered By: Renard Burgos on 12-31-2024 MCV (RBC) [Entitic vol] 92.4 fL Normal 80-94 [facility] Comment on above: Order Comment: 109.1 Performed By: #### L 100.0100 ####[facility] [address] [place], [place], [address] Mean corpuscular hemoglobin (MCH) determinationOrdered By: Renard Burgos on 12-31-2024 MCH (RBC) [Entitic mass] 30.0 pg Normal 27.0-32.0 [facility] Comment on above: Order Comment: 109.1 Performed By: #### L 100.0100 ####[facility] [address] [place], [place], [id number] Mean corpuscular hemoglobin concentration (MCHC) determinationOrdered By: Renard Burgos on 12-31-2024 MCHC (RBC) [Mass/Vol] 32.4 g/dL Normal 32-36 [facility] Comment on above: Order Comment: 109.1 Performed By: #### L 100.0100 ####[facility] [address] [place], [address] Mean platelet volume determi nationOrdered By: Renard Burgos on 12-31-2024 Platelet mean volume (Bld) [Entitic vol] 10.9 fL Normal 6.2-12.0 [facility] Comment on above: Order Comment: 109.1 Performed By: #### L 100.0100 ####[facility] [address] [place], [address] Monocyte percentageOrdered B y: Renard Burgos on 12-31-2024 Monocytes/100 WBC (Bld) 9.0 % Normal 0-10 [facility] Comment on above: Order Comment: 109.1 Performed By: #### L 100.0100 ####[facility] [address] [place], [address] Neutrophil percentageOrdered By: Renard Burgos on 12-31-2024 Neutrophils/100 WBC (Bld) 66.2 % Normal 47-70 [facility] Comment on above: Order Comment: 109.1 Performed By: #### L 100.0100 ####[facility] [address] [place], [address] Nucleated red blood cell per centageOrdered By: Renard Burgos on 12-31-2024 Nucleated RBC/100 WBC (Bld) [Ratio] 0 % 0-5 [facility] Platelet countOrdered By: Garrick Bhatt on 12-31-2024 Platelets (Bld) [#/Vol] 209 10*3/uL Normal 150-450 [facility] Comment on above: Order Comment: 109.1 Performed By: #### L 100.0100 ####[facility] [address] [place], [address] White blood cell (WBC) count Ordered By: Renard Burgos on 12-31-2024 WBC (Bld) [#/Vol] 8.0 10*3/uL Normal 4.4-11.0 [facility] Comment on above: Order Comment: 109.1 Performed By: #### L 100.0100 ####[facility] [address] [place], [address] Absolute lymphocyte countOrd ered By: Renard Burgos on 12-23-2024 Lymphocytes Auto (Unsp spec) [#/Vol] 1.98 10*3/uL 0.83-4.51 [facility] Absolute neutrophil countOrd ered By: Renard Burgos on 12-23-2024 Neutrophils (Bld) [#/Vol] 4.2 10*3/uL 2.0-7.7 [facility] Automated lymphocyte count a s percentage of total leukocytesOrdered By: Renard Burgos on 12-23-2024 Lymphocytes/100 WBC Auto (Unsp spec) 28.9 % 19-41 [facility] Basophil percentageOrdered B y: Renard Burgos on 12-23-2024 Basophils/100 WBC (Bld) 0.6 % 0-1 [facility] CBC W/Diff, Automatedon 11-30 Absolute Lymph 1.98 X10 3/uL Normal 0.83-4.51 [facility] Comment on above: Order Comment: 109-1 Performed By: #### L 100.0100 ####[facility] [address] [place], [address] Absolute Neut 4.2 X10 3/uL Normal 2.0-7.7 [facility] Comment on above: Order Comment: 109-1 Performed By: #### L 100.0100 ####[facility] [address] [place], [address] Basophils/100 WBC (Bld) 0.6 % Normal 0-1 [facility] Comment on above: Order Comment: 109-1 Performed By: #### L 100.0100 ####[facility] [address] [place], [address] Eosinophils/100 WBC (Bld) 0.9 % Normal 0-5 [facility] Comment on above: Order Comment: 109-1 Performed By: #### L 100.0100 ####[facility] [address] [place], [address] Erythrocyte distribution width (RBC) [Ratio] 13.0 % Normal 11.6-14.6 [facility] Comment on above: Order Comment: 109-1 Performed By: #### L 100.0100 ####[facility] [address] [place], [address] Hematocrit (Bld) [Volume fraction] 39.9 % Low 40-54 [facility] Comment on above: Order Comment: 109-1 Performed By: #### L 100.0100 ####[facility] [address], [address] Hemoglobin (Bld) [Mass/Vol] 13.4 g/dL Normal 13.0-16.5 [facility] Comment on above: Order Comment: 109-1 Performed By: #### L 100.0100 ####[facility] [address], [address] IG% 0.300 Normal 0.0-0.9 [facility] Comment on above: Order Comment: 109-1 Result Comment: IG% - Immature Granulocytes (promyelocytes, myelocytes andmetamyelocytes) > 1% indicates that a LEFT SHIFT is Present. Performed By: #### L 100.0100 ####[facility] [address] [place], [address] Lymphocytes/100 WBC (Bld) 28.9 % Normal 19-41 [facility] Comment on above: Order Comment: 109-1 Performed By: #### L 100.0100 ####[facility] [address] [place], [address] MCH (RBC) [Entitic mass] 30.9 pg Normal 27.0-32.0 [facility] Comment on above: Order Comment: 109-1 Performed By: #### L 100.0100 ####[facility] [address] [place], [address] MCHC (RBC) [Mass/Vol] 33.6 g/dL Normal 32-36 [facility] Comment on above: Order Comment: 109-1 Performed By: #### L 100.0100 ####[facility] [address] [place], [address] MCV (RBC) [Entitic vol] 91.9 fL Normal 80-94 [facility] Comment on above: Order Comment: 109-1 Performed By: #### L 100.0100 ####[facility] [address] [place], [address] Monocytes/100 WBC (Bld) 8.0 % Normal 0-10 [facility] Comment on above: Order Comment: 109-1 Performed By: #### L 100.0100 ####[facility] [address] [place], [address] Neutrophils/100 WBC (Bld) 61.3 % Normal 47-70 [facility] Comment on above: Order Comment: 109-1 Performed By: #### L 100.0100 ####[facility] [address] [place], [address] Nucleated RBC (Bld) [#/Vol] 0 10*3/uL Normal 0-5 [facility] Comment on above: Order Comment: 109-1 Performed By: #### L 100.0100 ####[facility] [address] [place], [address] Platelet mean volume (Bld) [Entitic vol] 11.7 fL Normal 6.2-12.0 [facility] Comment on above: Order Comment: 109-1 Performed By: #### L 100.0100 ####[facility] [address] [place], [address] Platelets (Bld) [#/Vol] 201 10*3/uL Normal 150-450 [facility] Comment on above: Order Comment: 109-1 Performed By: #### L 100.0100 ####[facility] [address] [place], [address] RBC (Bld) [#/Vol] 4.34 10*6/uL Low 4.6-6.2 [facility] Comment on above: Order Comment: 109-1 Performed By: #### L 100.0100 ####[facility] [address] [place], [address] RDW SD 43.4 fl Normal 35.1-43.9 [facility] Comment on above: Order Comment: 109-1 Performed By: #### L 100.0100 ####[facility] [address] [place], [address] WBC (Bld) [#/Vol] 6.8 10*3/uL Normal 4.4-11.0 [facility] Comment on above: Order Comment: 109-1 Performed By: #### L 100.0100 ####[facility] [address] [place], [address] Eosinophil percentageOrdered By: Renard Burgos on 12-23-2024 Eosinophils/100 WBC (Bld) 0.9 % 0-5 [facility] Erythrocyte distribution wid th ratioOrdered By: Renard Burgos on 12-23-2024 Erythrocyte distribution width (RBC) [Ratio] 13.0 % 11.6-14.6 [facility] Erythrocyte distribution wid th standard deviationOrdered By: Renard Burgos on 12-23-2024 Erythrocyte distribution width (RBC) [Ratio] 43.4 fl 35.1-43.9 [facility] Hematocrit Auto (Bld) [Volum e fraction]Ordered By: Renard Burgos on 12-23-2024 Hematocrit (Bld) [Volume fraction] 39.9 % Low 40-54 [facility] Hemoglobin measurementOrdere d By: Renard Burgos on 12-23-2024 Hemoglobin (Bld) [Mass/Vol] 13.4 g/dL 13.0-16.5 [facility] Immature granulocytes/100 WB C Auto (Bld)Ordered By: Renard Burgos on 12-23-2024 Immature granulocytes/100 WBC (Bld) 0.300 % 0.0-0.9 [facility] Comment on above: IG% - Immature Granu locytes (promyelocytes, myelocytes and metamyelocytes) > 1% indicates that a LEFT SHIFT is Present. MCV (mean corpuscular volume ) determinationOrdered By: Renard Burgos on 12-23-2024 MCV (RBC) [Entitic vol] 91.9 fL 80-94 [facility] Mean corpuscular hemoglobin (MCH) determinationOrdered By: Renard Burgos on 12-23-2024 MCH (RBC) [Entitic mass] 30.9 pg 27.0-32.0 [facility] Mean corpuscular hemoglobin concentration (MCHC) determinationOrdered By: Renard Burgos on 12-23-2024 MCHC (RBC) [Mass/Vol] 33.6 g/dL 32-36 [facility] Mean platelet volume determi nationOrdered By: Renard Burgos on 12-23-2024 Platelet mean volume (Bld) [Entitic vol] 11.7 fL 6.2-12.0 [facility] Monocyte percentageOrdered B y: Renard Burgos on 12-23-2024 Monocytes/100 WBC (Bld) 8.0 % 0-10 [facility] Neutrophil percentageOrdered By: Renard Burgos on 12-23-2024 Neutrophils/100 WBC (Bld) 61.3 % 47-70 [facility] Nucleated red blood cell per centageOrdered By: Renard Burgos on 12-23-2024 Nucleated RBC/100 WBC (Bld) [Ratio] 0 % 0-5 [facility] Platelet countOrdered By: Garrick Bhatt on 12-23-2024 Platelets (Bld) [#/Vol] 201 10*3/uL 150-450 [facility] RBC Auto (Bld) [#/Vol]Ordere d By: Renard Burgos on 12-23-2024 RBC (Bld) [#/Vol] 4.34 10*6/uL Low 4.6-6.2 [facility] White blood cell (WBC) count Ordered By: Renard Burgos on 12-23-2024 WBC (Bld) [#/Vol] 6.8 10*3/uL 4.4-11.0 [facility] Absolute lymphocyte countOrd ered By: Renard Burgos on 12-16-2024 Lymphocytes Auto (Unsp spec) [#/Vol] 2.15 10*3/uL 0.83-4.51 [facility] Absolute neutrophil countOrd ered By: Renard Burgos on 12-16-2024 Neutrophils (Bld) [#/Vol] 4.1 10*3/uL 2.0-7.7 [facility] Automated lymphocyte count a s percentage of total leukocytesOrdered By: Renard Burgos on 12-16-2024 Lymphocytes/100 WBC Auto (Unsp spec) 30.7 % 19-41 [facility] Basophil percentageOrdered B y: Renard Burgos on 12-16-2024 Basophils/100 WBC (Bld) 0.7 % 0-1 [facility] CBC W/Diff, Automatedon 11-29 Absolute Lymph 2.15 X10 3/uL Normal 0.83-4.51 [facility] Comment on above: Order Comment: 109.1 Performed By: #### L 100.0100 ####[facility] [address] [place] [place], [address] Absolute Neut 4.1 X10 3/uL Normal 2.0-7.7 [facility] Comment on above: Order Comment: 109.1 Performed By: #### L 100.0100 ####[facility] [address] [place], [address] Basophils/100 WBC (Bld) 0.7 % Normal 0-1 [facility] Comment on above: Order Comment: 109.1 Performed By: #### L 100.0100 ####[facility] [address] [place], [address] Eosinophils/100 WBC (Bld) 0.9 % Normal 0-5 [facility] Comment on above: Order Comment: 109.1 Performed By: #### L 100.0100 ####[facility] [address] [place], [address] Erythrocyte distribution width (RBC) [Ratio] 13.2 % Normal 11.6-14.6 [facility] Comment on above: Order Comment: 109.1 Performed By: #### L 100.0100 ####[facility] [address] [place], [address] Hematocrit (Bld) [Volume fraction] 38.7 % Low 40-54 [facility] Comment on above: Order Comment: 109.1 Performed By: #### L 100.0100 ####[facility] [address] [place], [address] Hemoglobin (Bld) [Mass/Vol] 12.8 g/dL Low 13.0-16.5 [facility] Comment on above: Order Comment: 109.1 Performed By: #### L 100.0100 ####[facility] [address] [place], [address] IG% 0.300 Normal 0.0-0.9 [facility] Comment on above: Order Comment: 109.1 Result Comment: IG% - Immature Granulocytes (promyelocytes, myelocytes andmetamyelocytes) > 1% indicates that a LEFT SHIFT is Present. Performed By: #### L 100.0100 ####[facility] [address] [place], [address] Lymphocytes/100 WBC (Bld) 30.7 % Normal 19-41 [facility] Comment on above: Order Comment: 109.1 Performed By: #### L 100.0100 ####[facility] [address] [place], [address] MCH (RBC) [Entitic mass] 30.3 pg Normal 27.0-32.0 [facility] Comment on above: Order Comment: 109.1 Performed By: #### L 100.0100 ####[facility] [address] [place], [address] MCHC (RBC) [Mass/Vol] 33.1 g/dL Normal 32-36 [facility] Comment on above: Order Comment: 109.1 Performed By: #### L 100.0100 ####[facility] [address] [place], [address] MCV (RBC) [Entitic vol] 91.7 fL Normal 80-94 [facility] Comment on above: Order Comment: 109.1 Performed By: #### L 100.0100 ####[facility] [address] [place], [address] Monocytes/100 WBC (Bld) 8.6 % Normal 0-10 [facility] Comment on above: Order Comment: 109.1 Performed By: #### L 100.0100 ####[facility] [address] [place], [address] Neutrophils/100 WBC (Bld) 58.8 % Normal 47-70 [facility] Comment on above: Order Comment: 109.1 Performed By: #### L 100.0100 ####[facility] [address] [place], [address] Nucleated RBC (Bld) [#/Vol] 0 10*3/uL Normal 0-5 [facility] Comment on above: Order Comment: 109.1 Performed By: #### L 100.0100 ####[facility] [address] [place], [address] Platelet mean volume (Bld) [Entitic vol] 11.3 fL Normal 6.2-12.0 [facility] Comment on above: Order Comment: 109.1 Performed By: #### L 100.0100 ####[facility] [address] [place], [address] Platelets (Bld) [#/Vol] 202 10*3/uL Normal 150-450 [facility] Comment on above: Order Comment: 109.1 Performed By: #### L 100.0100 ####[facility] [address] [place], [address] RBC (Bld) [#/Vol] 4.22 10*6/uL Low 4.6-6.2 [facility] Comment on above: Order Comment: 109.1 Performed By: #### L 100.0100 ####[facility] [address] [place], [address] RDW SD 44.4 fl High 35.1-43.9 [facility] Comment on above: Order Comment: 109.1 Performed By: #### L 100.0100 ####[facility] [address] [place], [address] WBC (Bld) [#/Vol] 7.0 10*3/uL Normal 4.4-11.0 [facility] Comment on above: Order Comment: 109.1 Performed By: #### L 100.0100 ####[facility] [address] [place], [address] Eosinophil percentageOrdered By: Renard Burgos on 12-16-2024 Eosinophils/100 WBC (Bld) 0.9 % 0-5 [facility] Erythrocyte distribution wid th ratioOrdered By: Renard Burgos on 12-16-2024 Erythrocyte distribution width (RBC) [Ratio] 13.2 % 11.6-14.6 [facility] Erythrocyte distribution wid th standard deviationOrdered By: Renard Burgos on 12-16-2024 Erythrocyte distribution width (RBC) [Ratio] 44.4 fl High 35.1-43.9 [facility] Hematocrit Auto (Bld) [Volum e fraction]Ordered By: Renard Burgos on 12-16-2024 Hematocrit (Bld) [Volume fraction] 38.7 % Low 40-54 [facility] Hemoglobin measurementOrdere d By: Renard Burgos on 12-16-2024 Hemoglobin (Bld) [Mass/Vol] 12.8 g/dL Low 13.0-16.5 [facility] Immature granulocytes/100 WB C Auto (Bld)Ordered By: Renard Burgos on 12-16-2024 Immature granulocytes/100 WBC (Bld) 0.300 % 0.0-0.9 [facility] Comment on above: IG% - Immature Granu locytes (promyelocytes, myelocytes and metamyelocytes) > 1% indicates that a LEFT SHIFT is Present. MCV (mean corpuscular volume ) determinationOrdered By: Renard Burgos on 12-16-2024 MCV (RBC) [Entitic vol] 91.7 fL 80-94 [facility] Mean corpuscular hemoglobin (MCH) determinationOrdered By: Renard Burgos on 12-16-2024 MCH (RBC) [Entitic mass] 30.3 pg 27.0-32.0 [facility] Mean corpuscular hemoglobin concentration (MCHC) determinationOrdered By: Renard Burgos on 12-16-2024 MCHC (RBC) [Mass/Vol] 33.1 g/dL 32-36 [facility] Mean platelet volume determi nationOrdered By: Renard Burgos on 12-16-2024 Platelet mean volume (Bld) [Entitic vol] 11.3 fL 6.2-12.0 [facility] Monocyte percentageOrdered B y: Renard Burgos on 12-16-2024 Monocytes/100 WBC (Bld) 8.6 % 0-10 [facility] Neutrophil percentageOrdered By: Renard Burgos on 12-16-2024 Neutrophils/100 WBC (Bld) 58.8 % 47-70 [facility] Nucleated red blood cell per centageOrdered By: Renard Burgos on 12-16-2024 Nucleated RBC/100 WBC (Bld) [Ratio] 0 % 0-5 [facility] Platelet countOrdered By: Garrick Bhatt on 12-16-2024 Platelets (Bld) [#/Vol] 202 10*3/uL 150-450 [facility] RBC Auto (Bld) [#/Vol]Ordere d By: Renard Burgos on 12-16-2024 RBC (Bld) [#/Vol] 4.22 10*6/uL Low 4.6-6.2 [facility] White blood cell (WBC) count Ordered By: Renard Burgos on 12-16-2024 WBC (Bld) [#/Vol] 7.0 10*3/uL 4.4-11.0 [facility] Absolute lymphocyte countOrd ered By: Renard Burgos on 12-09-2024 Lymphocytes Auto (Unsp spec) [#/Vol] 2.30 10*3/uL 0.83-4.51 [facility] Absolute neutrophil countOrd ered By: Renard Burgos on 12-09-2024 Neutrophils (Bld) [#/Vol] 4.8 10*3/uL 2.0-7.7 [facility] Automated lymphocyte count a s percentage of total leukocytesOrdered By: Renard Burgos on 12-09-2024 Lymphocytes/100 WBC Auto (Unsp spec) 29.2 % 19-41 [facility] Basophil percentageOrdered B y: Renard Burgos on 12-09-2024 Basophils/100 WBC (Bld) 0.5 % 0-1 [facility] CBC W/Diff, Automatedon 11-29 Absolute Lymph 2.30 X10 3/uL Normal 0.83-4.51 [facility] Comment on above: Order Comment: 109.1 Performed By: #### L 100.0100 ####[facility] [address] [place], [address] Absolute Neut 4.8 X10 3/uL Normal 2.0-7.7 [facility] Comment on above: Order Comment: 109.1 Performed By: #### L 100.0100 ####[facility] [address] [place], [address] Basophils/100 WBC (Bld) 0.5 % Normal 0-1 [facility] Comment on above: Order Comment: 109.1 Performed By: #### L 100.0100 ####[facility] [address] [place], [address] Eosinophils/100 WBC (Bld) 1.0 % Normal 0-5 [facility] Comment on above: Order Comment: 109.1 Performed By: #### L 100.0100 ####[facility] [address] [place], [address] Erythrocyte distribution width (RBC) [Ratio] 13.0 % Normal 11.6-14.6 [facility] Comment on above: Order Comment: 109.1 Performed By: #### L 100.0100 ####[facility] [address] [place], [address] Hematocrit (Bld) [Volume fraction] 40.3 % Normal 40-54 [facility] Comment on above: Order Comment: 109.1 Performed By: #### L 100.0100 ####[facility] [address] [place], [address] Hemoglobin (Bld) [Mass/Vol] 12.8 g/dL Low 13.0-16.5 [facility] Comment on above: Order Comment: 109.1 Performed By: #### L 100.0100 ####[facility] [address] [place], [address] IG% 0.400 Normal 0.0-0.9 [facility] Comment on above: Order Comment: 109.1 Result Comment: IG% - Immature Granulocytes (promyelocytes, myelocytes andmetamyelocytes) > 1% indicates that a LEFT SHIFT is Present. Performed By: #### L 100.0100 ####[facility] [address] [place], [address] Lymphocytes/100 WBC (Bld) 29.2 % Normal 19-41 [facility] Comment on above: Order Comment: 109.1 Performed By: #### L 100.0100 ####[facility] [address] [place], [address] MCH (RBC) [Entitic mass] 29.6 pg Normal 27.0-32.0 [facility] Comment on above: Order Comment: 109.1 Performed By: #### L 100.0100 ####[facility] [address] [place], [address] MCHC (RBC) [Mass/Vol] 31.8 g/dL Low 32-36 [facility] Comment on above: Order Comment: 109.1 Performed By: #### L 100.0100 ####[facility] [address] [place], [address] MCV (RBC) [Entitic vol] 93.1 fL Normal 80-94 [facility] Comment on above: Order Comment: 109.1 Performed By: #### L 100.0100 ####[facility] [address] [place], [address] Monocytes/100 WBC (Bld) 7.7 % Normal 0-10 [facility] Comment on above: Order Comment: 109.1 Performed By: #### L 100.0100 ####[facility] [address] [place], [address] Neutrophils/100 WBC (Bld) 61.2 % Normal 47-70 [facility] Comment on above: Order Comment: 109.1 Performed By: #### L 100.0100 ####[facility] [address] [place], [address] Nucleated RBC (Bld) [#/Vol] 0 10*3/uL Normal 0-5 [facility] Comment on above: Order Comment: 109.1 Performed By: #### L 100.0100 ####[facility] [address] [place], [address] Platelet mean volume (Bld) [Entitic vol] 11.5 fL Normal 6.2-12.0 [facility] Comment on above: Order Comment: 109.1 Performed By: #### L 100.0100 ####[facility] [address] [place], [address] Platelets (Bld) [#/Vol] 194 10*3/uL Normal 150-450 [facility] Comment on above: Order Comment: 109.1 Performed By: #### L 100.0100 ####[facility] [address] [place], [address] RBC (Bld) [#/Vol] 4.33 10*6/uL Low 4.6-6.2 [facility] Comment on above: Order Comment: 109.1 Performed By: #### L 100.0100 ####[facility] [address] [place], [address] RDW SD 44.3 fl High 35.1-43.9 [facility] Comment on above: Order Comment: 109.1 Performed By: #### L 100.0100 ####[facility] [address] [place], [address] WBC (Bld) [#/Vol] 7.9 10*3/uL Normal 4.4-11.0 [facility] Comment on above: Order Comment: 109.1 Performed By: #### L 100.0100 ####[facility] [address] [place], [address] Eosinophil percentageOrdered By: Renard Burgos on 12-09-2024 Eosinophils/100 WBC (Bld) 1.0 % 0-5 [facility] Erythrocyte distribution wid th ratioOrdered By: Renard Burgos on 12-09-2024 Erythrocyte distribution width (RBC) [Ratio] 13.0 % 11.6-14.6 [facility] Erythrocyte distribution wid th standard deviationOrdered By: Renard Burgos on 12-09-2024 Erythrocyte distribution width (RBC) [Ratio] 44.3 fl High 35.1-43.9 [facility] Hematocrit Auto (Bld) [Volum e fraction]Ordered By: Renard Burgos on 12-09-2024 Hematocrit (Bld) [Volume fraction] 40.3 % 40-54 [facility] Hemoglobin measurementOrdere d By: Renard Burgos on 12-09-2024 Hemoglobin (Bld) [Mass/Vol] 12.8 g/dL Low 13.0-16.5 [facility] Immature granulocytes/100 WB C Auto (Bld)Ordered By: Renard Burgos on 12-09-2024 Immature granulocytes/100 WBC (Bld) 0.400 % 0.0-0.9 [facility] Comment on above: IG% - Immature Granu locytes (promyelocytes, myelocytes and metamyelocytes) > 1% indicates that a LEFT SHIFT is Present. MCV (mean corpuscular volume ) determinationOrdered By: Renard Burgos on 12-09-2024 MCV (RBC) [Entitic vol] 93.1 fL 80-94 [facility] Mean corpuscular hemoglobin (MCH) determinationOrdered By: Renard Burgos on 12-09-2024 MCH (RBC) [Entitic mass] 29.6 pg 27.0-32.0 [facility] Mean corpuscular hemoglobin concentration (MCHC) determinationOrdered By: Renard Burgos on 12-09-2024 MCHC (RBC) [Mass/Vol] 31.8 g/dL Low 32-36 [facility] Mean platelet volume determi nationOrdered By: Renard Burgos on 12-09-2024 Platelet mean volume (Bld) [Entitic vol] 11.5 fL 6.2-12.0 [facility] Monocyte percentageOrdered B y: Renard Burgos on 12-09-2024 Monocytes/100 WBC (Bld) 7.7 % 0-10 [facility] Neutrophil percentageOrdered By: Renard Burgos on 12-09-2024 Neutrophils/100 WBC (Bld) 61.2 % 47-70 [facility] Nucleated red blood cell per centageOrdered By: Renard Burgos on 12-09-2024 Nucleated RBC/100 WBC (Bld) [Ratio] 0 % 0-5 [facility] Platelet countOrdered By: Garrick Bhatt on 12-09-2024 Platelets (Bld) [#/Vol] 194 10*3/uL 150-450 [facility] RBC Auto (Bld) [#/Vol]Ordere d By: Renard Burgos on 12-09-2024 RBC (Bld) [#/Vol] 4.33 10*6/uL Low 4.6-6.2 [facility] White blood cell (WBC) count Ordered By: Renard Burgos on 12-09-2024 WBC (Bld) [#/Vol] 7.9 10*3/uL 4.4-11.0 [facility] Absolute lymphocyte countOrd ered By: Renard Burgos on 12-02-2024 Lymphocytes Auto (Unsp spec) [#/Vol] 2.83 10*3/uL 0.83-4.51 [facility] Absolute neutrophil countOrd ered By: Renard Burgos on 12-02-2024 Neutrophils (Bld) [#/Vol] 4.7 10*3/uL 2.0-7.7 [facility] Automated lymphocyte count a s percentage of total leukocytesOrdered By: Renard Burgos on 12-02-2024 Lymphocytes/100 WBC Auto (Unsp spec) 31.3 % 19-41 [facility] Basophil percentageOrdered B y: Renard Burgos on 12-02-2024 Basophils/100 WBC (Bld) 0.8 % 0-1 [facility] CBC W/Diff, Automatedon 08 Absolute Lymph 2.83 X10 3/uL Normal 0.83-4.51 [facility] Comment on above: Order Comment: 109.1 Performed By: #### L 100.0100 ####[facility] [address] [place], [address] Absolute Neut 4.7 X10 3/uL Normal 2.0-7.7 [facility] Comment on above: Order Comment: 109.1 Performed By: #### L 100.0100 ####[facility] [address] [place], [address] Basophils/100 WBC (Bld) 0.8 % Normal 0-1 [facility] Comment on above: Order Comment: 109.1 Performed By: #### L 100.0100 ####[facility] [address], [address] Eosinophils/100 WBC (Bld) 0.9 % Normal 0-5 [facility] Comment on above: Order Comment: 109.1 Performed By: #### L 100.0100 ####[facility] [address] [place], [address] Erythrocyte distribution width (RBC) [Ratio] 13.2 % Normal 11.6-14.6 [facility] Comment on above: Order Comment: 109.1 Performed By: #### L 100.0100 ####[facility] [address] [place], [address] Hematocrit (Bld) [Volume fraction] 41.4 % Normal 40-54 [facility] Comment on above: Order Comment: 109.1 Performed By: #### L 100.0100 ####[facility] [address] [place], [address] Hemoglobin (Bld) [Mass/Vol] 13.2 g/dL Normal 13.0-16.5 [facility] Comment on above: Order Comment: 109.1 Performed By: #### L 100.0100 ####[facility] [address] [place], [address] IG% 0.300 Normal 0.0-0.9 [facility] Comment on above: Order Comment: 109.1 Result Comment: IG% - Immature Granulocytes (promyelocytes, myelocytes andmetamyelocytes) > 1% indicates that a LEFT SHIFT is Present. Performed By: #### L 100.0100 ####[facility] [address] [place], [address] Lymphocytes/100 WBC (Bld) 31.3 % Normal 19-41 [facility] Comment on above: Order Comment: 109.1 Performed By: #### L 100.0100 ####[facility] [address] [place], [address] MCH (RBC) [Entitic mass] 30.1 pg Normal 27.0-32.0 [facility] Comment on above: Order Comment: 109.1 Performed By: #### L 100.0100 ####[facility] [address] [place], [address] MCHC (RBC) [Mass/Vol] 31.9 g/dL Low 32-36 [facility] Comment on above: Order Comment: 109.1 Performed By: #### L 100.0100 ####[facility] [address] [place], [address] MCV (RBC) [Entitic vol] 94.5 fL High 80-94 [facility] Comment on above: Order Comment: 109.1 Performed By: #### L 100.0100 ####[facility] [address] [place], [address] Monocytes/100 WBC (Bld) 14.8 % High 0-10 [facility] Comment on above: Order Comment: 109.1 Performed By: #### L 100.0100 ####[facility] [address] [place], [address] Neutrophils/100 WBC (Bld) 51.9 % Normal 47-70 [facility] Comment on above: Order Comment: 109.1 Performed By: #### L 100.0100 ####[facility] [address] [place], [address] Nucleated RBC (Bld) [#/Vol] 0 10*3/uL Normal 0-5 [facility] Comment on above: Order Comment: 109.1 Performed By: #### L 100.0100 ####[facility] [address] [place], [address] Platelet mean volume (Bld) [Entitic vol] 11.2 fL Normal 6.2-12.0 [facility] Comment on above: Order Comment: 109.1 Performed By: #### L 100.0100 ####[facility] [address] [place], [address] Platelets (Bld) [#/Vol] 182 10*3/uL Normal 150-450 [facility] Comment on above: Order Comment: 109.1 Performed By: #### L 100.0100 ####[facility] [address] [place], [address] RBC (Bld) [#/Vol] 4.38 10*6/uL Low 4.6-6.2 [facility] Comment on above: Order Comment: 109.1 Performed By: #### L 100.0100 ####[facility] [address] [place], [address] RDW SD 45.5 fl High 35.1-43.9 [facility] Comment on above: Order Comment: 109.1 Performed By: #### L 100.0100 ####[facility] [address] [place], [address] WBC (Bld) [#/Vol] 9.1 10*3/uL Normal 4.4-11.0 [facility] Comment on above: Order Comment: 109.1 Performed By: #### L 100.0100 ####[facility] [address] [place], [address] Eosinophil percentageOrdered By: Renard Burgos on 12-02-2024 Eosinophils/100 WBC (Bld) 0.9 % 0-5 [facility] Erythrocyte distribution wid th ratioOrdered By: Renadr Burgos on 12-02-2024 Erythrocyte distribution width (RBC) [Ratio] 13.2 % 11.6-14.6 [facility] Erythrocyte distribution wid th standard deviationOrdered By: Renard Burgos on 12-02-2024 Erythrocyte distribution width (RBC) [Ratio] 45.5 fl High 35.1-43.9 [facility] Hematocrit Auto (Bld) [Volum e fraction]Ordered By: Renard Burgos on 12-02-2024 Hematocrit (Bld) [Volume fraction] 41.4 % 40-54 [facility] Hemoglobin measurementOrdere d By: Renard Burgos on 12-02-2024 Hemoglobin (Bld) [Mass/Vol] 13.2 g/dL 13.0-16.5 [facility] Immature granulocytes/100 WB C Auto (Bld)Ordered By: Renard Burgos on 12-02-2024 Immature granulocytes/100 WBC (Bld) 0.300 % 0.0-0.9 [facility] Comment on above: IG% - Immature Granu locytes (promyelocytes, myelocytes and metamyelocytes) > 1% indicates that a LEFT SHIFT is Present. MCV (mean corpuscular volume ) determinationOrdered By: Renard Burgos on 12-02-2024 MCV (RBC) [Entitic vol] 94.5 fL High 80-94 [facility] Mean corpuscular hemoglobin (MCH) determinationOrdered By: Renard Burgos on 12-02-2024 MCH (RBC) [Entitic mass] 30.1 pg 27.0-32.0 [facility] Mean corpuscular hemoglobin concentration (MCHC) determinationOrdered By: Renard Burgos on 12-02-2024 MCHC (RBC) [Mass/Vol] 31.9 g/dL Low 32-36 [facility] Mean platelet volume determi nationOrdered By: Renard Burgos on 12-02-2024 Platelet mean volume (Bld) [Entitic vol] 11.2 fL 6.2-12.0 [facility] Monocyte percentageOrdered B y: Renard Burgos on 12-02-2024 Monocytes/100 WBC (Bld) 14.8 % High 0-10 [facility] Neutrophil percentageOrdered By: Renard Burgos on 12-02-2024 Neutrophils/100 WBC (Bld) 51.9 % 47-70 [facility] Nucleated red blood cell per centageOrdered By: Renard Burgos on 12-02-2024 Nucleated RBC/100 WBC (Bld) [Ratio] 0 % 0-5 [facility] Platelet countOrdered By: Garrick Bhatt on 12-02-2024 Platelets (Bld) [#/Vol] 182 10*3/uL 150-450 [facility] RBC Auto (Bld) [#/Vol]Ordere d By: Renard Burgos on 12-02-2024 RBC (Bld) [#/Vol] 4.38 10*6/uL Low 4.6-6.2 [facility] White blood cell (WBC) count Ordered By: Renard Burgos on 12-02-2024 WBC (Bld) [#/Vol] 9.1 10*3/uL 4.4-11.0 [facility] Absolute lymphocyte countOrd ered By: Renard Burgos on 11-25-2024 Lymphocytes Auto (Unsp spec) [#/Vol] 1.80 10*3/uL 0.83-4.51 [facility] Absolute neutrophil countOrd ered By: Renard Burgos on 11-25-2024 Neutrophils (Bld) [#/Vol] 7.6 10*3/uL 2.0-7.7 [facility] Automated blood erythrocyte countOrdered By: Renard Burgos on 11-25-2024 RBC (Bld) [#/Vol] 4.57 10*6/uL Low 4.6-6.2 [facility] Comment on above: Order Comment: 109-1 Performed By: #### L 100.0100 ####[facility] [address] [place], [place], [address] Automated blood hematocrit ( percentage)Ordered By: Renard Burgos on 11-25-2024 Hematocrit (Bld) [Volume fraction] 42.1 % Normal 40-54 [facility] Comment on above: Order Comment: 109-1 Performed By: #### L 100.0100 ####[facility] [address] [facility] [place], [place], [address] Automated lymphocyte count a s percentage of total leukocytesOrdered By: Renard Burgos on 11-25-2024 Lymphocytes/100 WBC Auto (Unsp spec) 17.3 % Low 19-41 [facility] Basophil percentageOrdered B y: Renard Burgos on 11-25-2024 Basophils/100 WBC (Bld) 0.4 % Normal 0-1 [facility] Comment on above: Order Comment: 109-1 Performed By: #### L 100.0100 ####[facility] [address] [place], [address] CBC W/Diff, Automatedon 10-30 Absolute Lymph 1.80 X10 3/uL Normal 0.83-4.51 [facility] Comment on above: Order Comment: 109-1 Performed By: #### L 100.0100 ####[facility] [address] [place], [address] Absolute Neut 7.6 X10 3/uL Normal 2.0-7.7 [facility] Comment on above: Order Comment: 109-1 Performed By: #### L 100.0100 ####[facility] [address] [place], [address] IG% 0.400 Normal 0.0-0.9 [facility] Comment on above: Order Comment: 109-1 Result Comment: IG% - Immature Granulocytes (promyelocytes, myelocytes andmetamyelocytes) > 1% indicates that a LEFT SHIFT is Present. Performed By: #### L 100.0100 ####[facility] [address] [place], [address] Lymphocytes/100 WBC (Bld) 17.3 % Low 19-41 [facility] Comment on above: Order Comment: 109-1 Performed By: #### L 100.0100 ####[facility] [address] [place], [address] Nucleated RBC (Bld) [#/Vol] 0 10*3/uL Normal 0-5 [facility] Comment on above: Order Comment: 109-1 Performed By: #### L 100.0100 ####[facility] [address] [place], [address] RDW SD 43.7 fl Normal 35.1-43.9 [facility] Comment on above: Order Comment: 109-1 Performed By: #### L 100.0100 ####[facility] [address] [place], [address] Eosinophil percentageOrdered By: Renard Burgos on 11-25-2024 Eosinophils/100 WBC (Bld) 0.6 % Normal 0-5 [facility] Comment on above: Order Comment: 109-1 Performed By: #### L 100.0100 ####[facility] [address] [place], [address] Erythrocyte distribution wid th ratioOrdered By: Renard Burgos on 11-25-2024 Erythrocyte distribution width (RBC) [Ratio] 12.9 % Normal 11.6-14.6 [facility] Comment on above: Order Comment: 109-1 Performed By: #### L 100.0100 ####[facility] [address] [place], [address] Erythrocyte distribution wid th standard deviationOrdered By: Renard Burgos on 11-25-2024 Erythrocyte distribution width (RBC) [Ratio] 43.7 fl 35.1-43.9 [facility] Hemoglobin measurementOrdere d By: Renard Burgos on 11-25-2024 Hemoglobin (Bld) [Mass/Vol] 13.8 g/dL Normal 13.0-16.5 [facility] Comment on above: Order Comment: 109-1 Performed By: #### L 100.0100 ####[facility] [address] [place], [address] Immature granulocytes/100 WB C Auto (Bld)Ordered By: Renard Burgos on 11-25-2024 Immature granulocytes/100 WBC (Bld) 0.400 % 0.0-0.9 [facility] Comment on above: IG% - Immature Granu locytes (promyelocytes, myelocytes and metamyelocytes) > 1% indicates that a LEFT SHIFT is Present. MCV (mean corpuscular volume ) determinationOrdered By: Renard Burgos on 11-25-2024 MCV (RBC) [Entitic vol] 92.1 fL Normal 80-94 [facility] Comment on above: Order Comment: 109-1 Performed By: #### L 100.0100 ####[facility] [address] [place], [place], [address] Mean corpuscular hemoglobin (MCH) determinationOrdered By: Renard Burgos on 11-25-2024 MCH (RBC) [Entitic mass] 30.2 pg Normal 27.0-32.0 [facility] Comment on above: Order Comment: 109-1 Performed By: #### L 100.0100 ####[facility] [address] [place], [phone] Mean corpuscular hemoglobin concentration (MCHC) determinationOrdered By: Renard Burgos on 11-25-2024 MCHC (RBC) [Mass/Vol] 32.8 g/dL Normal 32-36 [facility] Comment on above: Order Comment: 109-1 Performed By: #### L 100.0100 ####[facility] [address] [place], [address] Mean platelet volume determi nationOrdered By: Renard Burgos on 11-25-2024 Platelet mean volume (Bld) [Entitic vol] 11.7 fL Normal 6.2-12.0 [facility] Comment on above: Order Comment: 109-1 Performed By: #### L 100.0100 ####[facility] [address] [place], [place], [id number] Monocyte percentageOrdered B y: Renard Burgos on 11-25-2024 Monocytes/100 WBC (Bld) 8.6 % Normal 0-10 [facility] Comment on above: Order Comment: 109-1 Performed By: #### L 100.0100 ####[facility] [address] [place], [address] Neutrophil percentageOrdered By: Renard Burgos on 11-25-2024 Neutrophils/100 WBC (Bld) 72.7 % High 47-70 [facility] Comment on above: Order Comment: 109-1 Performed By: #### L 100.0100 ####[facility] [address] [place], [address] Nucleated red blood cell per centageOrdered By: Renard Burgos on 11-25-2024 Nucleated RBC/100 WBC (Bld) [Ratio] 0 % 0-5 [facility] Platelet countOrdered By: Garrick Bhatt on 11-25-2024 Platelets (Bld) [#/Vol] 201 10*3/uL Normal 150-450 [facility] Comment on above: Order Comment: 109-1 Performed By: #### L 100.0100 ####[facility] [address] [facility] [place], [address] White blood cell (WBC) count Ordered By: Renard Burgos on 11-25-2024 WBC (Bld) [#/Vol] 10.4 10*3/uL Normal 4.4-11.0 [facility] Comment on above: Order Comment: 109-1 Performed By: #### L 100.0100 ####[facility] [address] [place], [place], [phone] Absolute lymphocyte countOrd ered By: Renard Burgos on 11-18-2024 Lymphocytes Auto (Unsp spec) [#/Vol] 2.56 10*3/uL 0.83-4.51 [facility] Absolute neutrophil countOrd ered By: Renard Burgos on 11-18-2024 Neutrophils (Bld) [#/Vol] 6.7 10*3/uL 2.0-7.7 [facility] Automated lymphocyte count a s percentage of total leukocytesOrdered By: Renard Burgos on 11-18-2024 Lymphocytes/100 WBC Auto (Unsp spec) 24.9 % 19-41 [facility] Basophil percentageOrdered B y: Renard Burgos on 11-18-2024 Basophils/100 WBC (Bld) 0.5 % 0-1 [facility] CBC W/Diff, Automatedon 07-2 -2024 Absolute Lymph 2.56 X10 3/uL Normal 0.83-4.51 [facility] Comment on above: Order Comment: 109.1 Performed By: #### L 100.0100 ####[facility] [address] [place], [address] Absolute Neut 6.7 X10 3/uL Normal 2.0-7.7 [facility] Comment on above: Order Comment: 109.1 Performed By: #### L 100.0100 ####[facility] [address] [place], [address] Basophils/100 WBC (Bld) 0.5 % Normal 0-1 [facility] Comment on above: Order Comment: 109.1 Performed By: #### L 100.0100 ####[facility] [address] [place], [address] Eosinophils/100 WBC (Bld) 0.8 % Normal 0-5 [facility] Comment on above: Order Comment: 109.1 Performed By: #### L 100.0100 ####[facility] [address] [place], [address] Erythrocyte distribution width (RBC) [Ratio] 13.2 % Normal 11.6-14.6 [facility] Comment on above: Order Comment: 109.1 Performed By: #### L 100.0100 ####[facility] [address] [place], [address] Hematocrit (Bld) [Volume fraction] 41.6 % Normal 40-54 [facility] Comment on above: Order Comment: 109.1 Performed By: #### L 100.0100 ####[facility] [address] [place], [address] Hemoglobin (Bld) [Mass/Vol] 13.6 g/dL Normal 13.0-16.5 [facility] Comment on above: Order Comment: 109.1 Performed By: #### L 100.0100 ####[facility] [address], [address] IG% 0.400 Normal 0.0-0.9 [facility] Comment on above: Order Comment: 109.1 Result Comment: IG% - Immature Granulocytes (promyelocytes, myelocytes andmetamyelocytes) > 1% indicates that a LEFT SHIFT is Present. Performed By: #### L 100.0100 ####[facility] [address] [place], [address] Lymphocytes/100 WBC (Bld) 24.9 % Normal 19-41 [facility] Comment on above: Order Comment: 109.1 Performed By: #### L 100.0100 ####[facility] [address] [place], [address] MCH (RBC) [Entitic mass] 30.3 pg Normal 27.0-32.0 [facility] Comment on above: Order Comment: 109.1 Performed By: #### L 100.0100 ####[facility] [address] [place], [address] MCHC (RBC) [Mass/Vol] 32.7 g/dL Normal 32-36 [facility] Comment on above: Order Comment: 109.1 Performed By: #### L 100.0100 ####[facility] [address] [place], [address] MCV (RBC) [Entitic vol] 92.7 fL Normal 80-94 [facility] Comment on above: Order Comment: 109.1 Performed By: #### L 100.0100 ####[facility] [address] [place], [address] Monocytes/100 WBC (Bld) 8.9 % Normal 0-10 [facility] Comment on above: Order Comment: 109.1 Performed By: #### L 100.0100 ####[facility] [address] [place], [address] Neutrophils/100 WBC (Bld) 64.5 % Normal 47-70 [facility] Comment on above: Order Comment: 109.1 Performed By: #### L 100.0100 ####[facility] [address] [place], [address] Nucleated RBC (Bld) [#/Vol] 0 10*3/uL Normal 0-5 [facility] Comment on above: Order Comment: 109.1 Performed By: #### L 100.0100 ####[facility] [address] [place], [address] Platelet mean volume (Bld) [Entitic vol] 11.0 fL Normal 6.2-12.0 [facility] Comment on above: Order Comment: 109.1 Performed By: #### L 100.0100 ####[facility] [address] [place], [address] Platelets (Bld) [#/Vol] 177 10*3/uL Normal 150-450 [facility] Comment on above: Order Comment: 109.1 Performed By: #### L 100.0100 ####[facility] [address] [place], [address] RBC (Bld) [#/Vol] 4.49 10*6/uL Low 4.6-6.2 [facility] Comment on above: Order Comment: 109.1 Performed By: #### L 100.0100 ####[facility] [address] [place], [address] RDW SD 44.9 fl High 35.1-43.9 [facility] Comment on above: Order Comment: 109.1 Performed By: #### L 100.0100 ####[facility] [address] [place], [address] WBC (Bld) [#/Vol] 10.3 10*3/uL Normal 4.4-11.0 [facility] Comment on above: Order Comment: 109.1 Performed By: #### L 100.0100 ####[facility] [address] [place], [address] Eosinophil percentageOrdered By: Renard Burgos on 11-18-2024 Eosinophils/100 WBC (Bld) 0.8 % 0-5 [facility] Erythrocyte distribution wid th ratioOrdered By: Renard Burgos on 11-18-2024 Erythrocyte distribution width (RBC) [Ratio] 13.2 % 11.6-14.6 [facility] Erythrocyte distribution wid th standard deviationOrdered By: Renard Burgos on 11-18-2024 Erythrocyte distribution width (RBC) [Ratio] 44.9 fl High 35.1-43.9 [facility] Hematocrit Auto (Bld) [Volum e fraction]Ordered By: Renard Burgos on 11-18-2024 Hematocrit (Bld) [Volume fraction] 41.6 % 40-54 [facility] Hemoglobin measurementOrdere d By: Renard Burgos on 11-18-2024 Hemoglobin (Bld) [Mass/Vol] 13.6 g/dL 13.0-16.5 [facility] Immature granulocytes/100 WB C Auto (Bld)Ordered By: Renard Burgos on 11-18-2024 Immature granulocytes/100 WBC (Bld) 0.400 % 0.0-0.9 [facility] Comment on above: IG% - Immature Granu locytes (promyelocytes, myelocytes and metamyelocytes) > 1% indicates that a LEFT SHIFT is Present. MCV (mean corpuscular volume ) determinationOrdered By: Renard Burgos on 11-18-2024 MCV (RBC) [Entitic vol] 92.7 fL 80-94 [facility] Mean corpuscular hemoglobin (MCH) determinationOrdered By: Renard Burgos on 11-18-2024 MCH (RBC) [Entitic mass] 30.3 pg 27.0-32.0 [facility] Mean corpuscular hemoglobin concentration (MCHC) determinationOrdered By: Renard Burgos on 11-18-2024 MCHC (RBC) [Mass/Vol] 32.7 g/dL 32-36 [facility] Mean platelet volume determi nationOrdered By: Renard Burgos on 11-18-2024 Platelet mean volume (Bld) [Entitic vol] 11.0 fL 6.2-12.0 [facility] Monocyte percentageOrdered B y: Renard Burgos on 11-18-2024 Monocytes/100 WBC (Bld) 8.9 % 0-10 [facility] Neutrophil percentageOrdered By: Renard Burgos on 11-18-2024 Neutrophils/100 WBC (Bld) 64.5 % 47-70 [facility] Nucleated red blood cell per centageOrdered By: Renard Burgos on 11-18-2024 Nucleated RBC/100 WBC (Bld) [Ratio] 0 % 0-5 [facility] Platelet countOrdered By: Garrick Bhatt on 11-18-2024 Platelets (Bld) [#/Vol] 177 10*3/uL 150-450 [facility] RBC Auto (Bld) [#/Vol]Ordere d By: Renard Burgos on 11-18-2024 RBC (Bld) [#/Vol] 4.49 10*6/uL Low 4.6-6.2 [facility] White blood cell (WBC) count Ordered By: Renard Burgos on 11-18-2024 WBC (Bld) [#/Vol] 10.3 10*3/uL 4.4-11.0 [facility] Basic Metabolic Profile (BMP )on 11-12-2024 BUN/CRE 18.8 RATIO Normal 10-20 [facility] Comment on above: Order Comment: ADDED BMP TO 11/11/24 LABS Performed By: #### L 100.0100, L500.2500 ####[facility] [address] [place], [place], [id number] Calcium [Mass/Vol] 8.2 mg/dL Normal 7.6-11.0 [facility] Comment on above: Order Comment: ADDED BMP TO 11/11/24 LABS Performed By: #### L 100.0100, L500.2500 ####[facility] [address] [place], [address] Chloride [Moles/Vol] 104 mmol/L Normal 98-108 [facility] Comment on above: Order Comment: ADDED BMP TO 11/11/24 LABS Performed By: #### L 100.0100, L500.2500 ####[facility] [address] [place], [address] CO2 [Moles/Vol] 24.9 mmol/L Normal 21.0-32.0 [facility] Comment on above: Order Comment: ADDED BMP TO 11/11/24 LABS Performed By: #### L 100.0100, L500.2500 ####[facility] [address] [place], [address] Creatinine [Mass/Vol] 0.58 mg/dL Low 0.70-1.20 [facility] Comment on above: Order Comment: ADDED BMP TO 11/11/24 LABS Performed By: #### L 100.0100, L500.2500 ####[facility] [address] [place], [address] GAP 11 Normal 5-15 [facility] Comment on above: Order Comment: ADDED BMP TO 11/11/24 LABS Performed By: #### L 100.0100, L500.2500 ####[facility] [address] [place], [address] GFR/1.73 sq M.predicted among non-blacks MDRD (S/P/Bld) [Vol rate/Area] 107 mL/min/{1.73_m2} Normal >60 [facility] Comment on above: Order Comment: ADDED BMP TO 11/11/24 LABS Result Comment: mL/m in/1.73m2 CKD-EPI Creatinine Equation (2020) Performed By: #### L 100.0100, L500.2500 ####[facility] [address] [place], [address] Glucose [Mass/Vol] 101 mg/dL High 70-99 [facility] Comment on above: Order Comment: ADDED BMP TO 11/11/24 LABS Performed By: #### L 100.0100, L500.2500 ####[facility] [address] [place], [address] Potassium [Moles/Vol] 3.9 mmol/L Normal 3.3-5.1 [facility] Comment on above: Order Comment: ADDED BMP TO 11/11/24 LABS Performed By: #### L 100.0100, L500.2500 ####[facility] [address] [place], [address] Sodium [Moles/Vol] 140 mmol/L Normal 133-145 [facility] Comment on above: Order Comment: ADDED BMP TO 11/11/24 LABS Performed By: #### L 100.0100, L500.2500 ####[facility] [address] [place], [address] Urea nitrogen [Mass/Vol] 11 mg/dL Normal 4-19 [facility] Comment on above: Order Comment: ADDED BMP TO 11/11/24 LABS Performed By: #### L 100.0100, L500.2500 ####[facility] [address] [place], [address] Absolute lymphocyte countOrd ered By: Renard Burgos on 11-11-2024 Lymphocytes Auto (Unsp spec) [#/Vol] 2.08 10*3/uL 0.83-4.51 [facility] Absolute neutrophil countOrd ered By: Renard Burgos on 11-11-2024 Neutrophils (Bld) [#/Vol] 5.2 10*3/uL 2.0-7.7 [facility] Anion gap in Serum or Plasma Ordered By: Renard Burgos on 11-11-2024 Anion gap [Moles/Vol] 11 mmol/L 5-15 [facility] Automated lymphocyte count a s percentage of total leukocytesOrdered By: Renard Burgos on 11-11-2024 Lymphocytes/100 WBC Auto (Unsp spec) 25.7 % 19- [facility] BUN/creatinine ratioOrdered By: Renard Burgos on 11-11-2024 Urea nitrogen/Creatinine [Mass ratio] 18.8 mg/mg 10- [facility] Basophil percentageOrdered B y: Renard Burgos on 11-11-2024 Basophils/100 WBC (Bld) 0.6 % 0-1 [facility] CBC W/Diff, Automatedon 10-29 Absolute Lymph 2.08 X10 3/uL Normal 0.83-4.51 [facility] Comment on above: Order Comment: 109.1 Performed By: #### L 100.0100, L500.2500 ####[facility] [address] [place], [address] Absolute Neut 5.2 X10 3/uL Normal 2.0-7.7 [facility] Comment on above: Order Comment: 109.1 Performed By: #### L 100.0100, L500.2500 ####[facility] [address] [place], [address] Basophils/100 WBC (Bld) 0.6 % Normal 0-1 [facility] Comment on above: Order Comment: 109.1 Performed By: #### L 100.0100, L500.2500 ####[facility] [address] [place], [address] Eosinophils/100 WBC (Bld) 1.0 % Normal 0-5 [facility] Comment on above: Order Comment: 109.1 Performed By: #### L 100.0100, L500.2500 ####[facility] [address] [place], [address] Erythrocyte distribution width (RBC) [Ratio] 13.2 % Normal 11.6-14.6 [facility] Comment on above: Order Comment: 109.1 Performed By: #### L 100.0100, L500.2500 ####[facility] [address] [place], [address] Hematocrit (Bld) [Volume fraction] 38.6 % Low 40-54 [facility] Comment on above: Order Comment: 109.1 Performed By: #### L 100.0100, L500.2500 ####[facility] [address] [place], [address] Hemoglobin (Bld) [Mass/Vol] 12.6 g/dL Low 13.0-16.5 [facility] Comment on above: Order Comment: 109.1 Performed By: #### L 100.0100, L500.2500 ####[facility] [address] [place], [address] IG% 0.400 Normal 0.0-0.9 [facility] Comment on above: Order Comment: 109.1 Result Comment: IG% - Immature Granulocytes (promyelocytes, myelocytes andmetamyelocytes) > 1% indicates that a LEFT SHIFT is Present. Performed By: #### L 100.0100, L500.2500 ####[facility] [address] [place], [address] Lymphocytes/100 WBC (Bld) 25.7 % Normal 19-41 [facility] Comment on above: Order Comment: 109.1 Performed By: #### L 100.0100, L500.2500 ####[facility] [address] [place], [address] MCH (RBC) [Entitic mass] 29.9 pg Normal 27.0-32.0 [facility] Comment on above: Order Comment: 109.1 Performed By: #### L 100.0100, L500.2500 ####[facility] [address] [place], [address] MCHC (RBC) [Mass/Vol] 32.6 g/dL Normal 32-36 [facility] Comment on above: Order Comment: 109.1 Performed By: #### L 100.0100, L500.2500 ####[facility] [address] [place], [address] MCV (RBC) [Entitic vol] 91.7 fL Normal 80-94 [facility] Comment on above: Order Comment: 109.1 Performed By: #### L 100.0100, L500.2500 ####[facility] [address] [place], [address] Monocytes/100 WBC (Bld) 8.3 % Normal 0-10 [facility] Comment on above: Order Comment: 109.1 Performed By: #### L 100.0100, L500.2500 ####[facility] [address] [place], [address] Neutrophils/100 WBC (Bld) 64.0 % Normal 47-70 [facility] Comment on above: Order Comment: 109.1 Performed By: #### L 100.0100, L500.2500 ####[facility] [address] [place], [address] Nucleated RBC (Bld) [#/Vol] 0 10*3/uL Normal 0-5 [facility] Comment on above: Order Comment: 109.1 Performed By: #### L 100.0100, L500.2500 ####[facility] [address] [place], [address] Platelet mean volume (Bld) [Entitic vol] 11.4 fL Normal 6.2-12.0 [facility] Comment on above: Order Comment: 109.1 Performed By: #### L 100.0100, L500.2500 ####[facility] [address] [place], [address] Platelets (Bld) [#/Vol] 220 10*3/uL Normal 150-450 [facility] Comment on above: Order Comment: 109.1 Performed By: #### L 100.0100, L500.2500 ####[facility] [address] [place], [address] RBC (Bld) [#/Vol] 4.21 10*6/uL Low 4.6-6.2 [facility] Comment on above: Order Comment: 109.1 Performed By: #### L 100.0100, L500.2500 ####[facility] [address] [place], [address] RDW SD 44.4 fl High 35.1-43.9 [facility] Comment on above: Order Comment: 109.1 Performed By: #### L 100.0100, L500.2500 ####[facility] [address] [place], [address] WBC (Bld) [#/Vol] 8.1 10*3/uL Normal 4.4-11.0 [facility] Comment on above: Order Comment: 109.1 Performed By: #### L 100.0100, L500.2500 ####[facility] [address] [place], [address] Carbon dioxide, total [Moles /volume] in Central venous bloodOrdered By: Renard Burgos on 11-11-2024 CO2 [Moles/Vol] 24.9 mmol/L 21.0-32.0 [facility] Chloride assayOrdered By: Garrick Bhatt on 11-11-2024 Chloride [Moles/Vol] 104 mmol/L 98-108 [facility] Eosinophil percentageOrdered By: Renard Burgos on 11-11-2024 Eosinophils/100 WBC (Bld) 1.0 % 0-5 [facility] Erythrocyte distribution wid th ratioOrdered By: Renard Burgos on 11-11-2024 Erythrocyte distribution width (RBC) [Ratio] 13.2 % 11.6-14.6 [facility] Erythrocyte distribution wid th standard deviationOrdered By: Renard Burgos on 11-11-2024 Erythrocyte distribution width (RBC) [Ratio] 44.4 fl High 35.1-43.9 [facility] Glomerular filtration rate ( GFR) estimation/1.73 sq m using serum, plasma, or whole bOrdered By: Renard Burgos on 11-11-2024 GFR/1.73 sq M.predicted among non-blacks MDRD (S/P/Bld) [Vol rate/Area] 107 mL/min/{1.73_m2} >60 [facility] Comment on above: mL/min/1.73m2 CKD-EP I Creatinine Equation (2020) Hematocrit Auto (Bld) [Volum e fraction]Ordered By: Renard Burgos on 11-11-2024 Hematocrit (Bld) [Volume fraction] 38.6 % Low 40-54 [facility] Hemoglobin measurementOrdere d By: Renard Burgos on 11-11-2024 Hemoglobin (Bld) [Mass/Vol] 12.6 g/dL Low 13.0-16.5 [facility] Immature granulocytes/100 WB C Auto (Bld)Ordered By: Renard Burgos on 11-11-2024 Immature granulocytes/100 WBC (Bld) 0.400 % 0.0-0.9 [facility] Comment on above: IG% - Immature Granu locytes (promyelocytes, myelocytes and metamyelocytes) > 1% indicates that a LEFT SHIFT is Present. MCV (mean corpuscular volume ) determinationOrdered By: Renard Burgos on 11-11-2024 MCV (RBC) [Entitic vol] 91.7 fL 80-94 [facility] Mean corpuscular hemoglobin (MCH) determinationOrdered By: Renard Burgos on 11-11-2024 MCH (RBC) [Entitic mass] 29.9 pg 27.0-32.0 [facility] Mean corpuscular hemoglobin concentration (MCHC) determinationOrdered By: Renard Burgos on 11-11-2024 MCHC (RBC) [Mass/Vol] 32.6 g/dL 32-36 [facility] Mean platelet volume determi nationOrdered By: Renard Burgos on 11-11-2024 Platelet mean volume (Bld) [Entitic vol] 11.4 fL 6.2-12.0 [facility] Monocyte percentageOrdered B y: Renard Burgos on 11-11-2024 Monocytes/100 WBC (Bld) 8.3 % 0-10 [facility] Neutrophil percentageOrdered By: Renard Burgos on 11-11-2024 Neutrophils/100 WBC (Bld) 64.0 % 47-70 [facility] Nucleated red blood cell per centageOrdered By: Renard Burgos on 11-11-2024 Nucleated RBC/100 WBC (Bld) [Ratio] 0 % 0-5 [facility] Platelet countOrdered By: Garrick Bhatt on 11-11-2024 Platelets (Bld) [#/Vol] 220 10*3/uL 150-450 [facility] Potassium measurement (mass/ volume)Ordered By: Renard Burgos on 11-11-2024 Potassium (Unsp spec) [Mass/Vol] 3.9 mmol/L 3.3-5.1 [facility] RBC Auto (Bld) [#/Vol]Ordere d By: Renard Burgos on 11-11-2024 RBC (Bld) [#/Vol] 4.21 10*6/uL Low 4.6-6.2 [facility] Serum creatinine measurement (mass/volume)Ordered By: Renard Burgos on 11-11-2024 Creatinine [Mass/Vol] 0.58 mg/dL Low 0.70-1.20 [facility] Serum glucose measurement (m ass/volume)Ordered By: Renard Burgos on 11-11-2024 Glucose [Mass/Vol] 101 mg/dL High 70-99 [facility] Serum or plasma calcium gordy urement (mass/volume)Ordered By: Renard Burgos on 11-11-2024 Calcium [Mass/Vol] 8.2 mg/dL 7.6-11.0 [facility] Serum or plasma urea nitroge n measurement (mass/volume)Ordered By: Renard Burgos on 11-11-2024 Urea nitrogen [Mass/Vol] 11 mg/dL 4-19 [facility] Sodium levelOrdered By: Lamine Burgos on 11-11-2024 Sodium [Moles/Vol] 140 mmol/L 133-145 [facility] White blood cell (WBC) count Ordered By: Renard Burgos on 11-11-2024 WBC (Bld) [#/Vol] 8.1 10*3/uL 4.4-11.0 [facility] Absolute lymphocyte countOrd ered By: Renard Burgos on 11-04-2024 Lymphocytes Auto (Unsp spec) [#/Vol] 2.18 10*3/uL 0.83-4.51 [facility] Absolute neutrophil countOrd ered By: Renard Burgos on 11-04-2024 Neutrophils (Bld) [#/Vol] 4.8 10*3/uL 2.0-7.7 [facility] Automated lymphocyte count a s percentage of total leukocytesOrdered By: Renard Burgos on 11-04-2024 Lymphocytes/100 WBC Auto (Unsp spec) 28.1 % 19-41 [facility] Basophil percentageOrdered B y: Renard Burgos on 11-04-2024 Basophils/100 WBC (Bld) 0.6 % 0-1 [facility] CBC W/Diff, Automatedon PLT EST A Normal ADEQ [facility] Comment on above: Order Comment: 109 Performed By: #### L 100.0100 ####[facility] [address] [place], [place], [id number] PLT MORPH CLUMPED Normal [facility] Comment on above: Order Comment: 109 Performed By: #### L 100.0100 ####[facility] [address] [place], [place], [id number] Eosinophil percentageOrdered By: Renard Burgos on 11-04-2024 Eosinophils/100 WBC (Bld) 0.8 % 0-5 [facility] Erythrocyte distribution wid th ratioOrdered By: Renard Burgos on 11-04-2024 Erythrocyte distribution width (RBC) [Ratio] 13.3 % 11.6-14.6 [facility] Erythrocyte distribution wid th standard deviationOrdered By: Renard Burgos on 11-04-2024 Erythrocyte distribution width (RBC) [Ratio] 45.0 fl High 35.1-43.9 [facility] Hematocrit Auto (Bld) [Volum e fraction]Ordered By: Renard Burgos on 11-04-2024 Hematocrit (Bld) [Volume fraction] 42.8 % 40-54 [facility] Hemoglobin measurementOrdere d By: Renard Burgos on 11-04-2024 Hemoglobin (Bld) [Mass/Vol] 14.0 g/dL 13.0-16.5 [facility] Immature granulocytes/100 WB C Auto (Bld)Ordered By: Renard Burgos on 11-04-2024 Immature granulocytes/100 WBC (Bld) 0.400 % 0.0-0.9 [facility] Comment on above: IG% - Immature Granu locytes (promyelocytes, myelocytes and metamyelocytes) > 1% indicates that a LEFT SHIFT is Present. MCV (mean corpuscular volume ) determinationOrdered By: Renard Burgos on 11-04-2024 MCV (RBC) [Entitic vol] 92.4 fL 80-94 [facility] Mean corpuscular hemoglobin (MCH) determinationOrdered By: Renard Burgos on 11-04-2024 MCH (RBC) [Entitic mass] 30.2 pg 27.0-32.0 [facility] Mean corpuscular hemoglobin concentration (MCHC) determinationOrdered By: Renard Burgos on 11-04-2024 MCHC (RBC) [Mass/Vol] 32.7 g/dL 32-36 [facility] Mean platelet volume determi nationOrdered By: Renard Burgos on 11-04-2024 Platelet mean volume (Bld) [Entitic vol] 11.6 fL 6.2-12.0 [facility] Monocyte percentageOrdered B y: Renard Burgos on 11-04-2024 Monocytes/100 WBC (Bld) 8.4 % 0-10 [facility] Neutrophil percentageOrdered By: Renard Burgos on 11-04-2024 Neutrophils/100 WBC (Bld) 61.7 % 47-70 [facility] Nucleated red blood cell per centageOrdered By: Renard Burgos on 11-04-2024 Nucleated RBC/100 WBC (Bld) [Ratio] 0 % 0-5 [facility] Platelet countOrdered By: Garrick Bhatt on 11-04-2024 Platelet count TNP [facility] Comment on above: Test not performed Platelet estimateOrdered By: Renard Burgos on 11-04-2024 Platelets LM Ql (Bld) A ADEQ [facility] Platelet morphologyOrdered B y: Renard Burgos on 11-04-2024 Platelet morphology finding Nom (Bld) CLUMPED [facility] RBC Auto (Bld) [#/Vol]Ordere d By: Renard Burgos on 11-04-2024 RBC (Bld) [#/Vol] 4.63 10*6/uL 4.6-6.2 [facility] White blood cell (WBC) count Ordered By: Renard Burgos on 11-04-2024 WBC (Bld) [#/Vol] 7.8 10*3/uL 4.4-11.0 [facility] Absolute lymphocyte countOrd ered By: Renard Burgos on 10-28-2024 Lymphocytes Auto (Unsp spec) [#/Vol] 1.72 10*3/uL 0.83-4.51 [facility] Absolute neutrophil countOrd ered By: Renard Burgos on 10-28-2024 Neutrophils (Bld) [#/Vol] 5.0 10*3/uL 2.0-7.7 [facility] Automated lymphocyte count a s percentage of total leukocytesOrdered By: Renard Burgos on 10-28-2024 Lymphocytes/100 WBC Auto (Unsp spec) 22.9 % 19-41 [facility] Basophil percentageOrdered B y: Renard Burgos on 10-28-2024 Basophils/100 WBC (Bld) 0.7 % 0-1 [facility] CBC W/Diff, Automatedon 10-01 Absolute Lymph 1.72 X10 3/uL Normal 0.83-4.51 [facility] Comment on above: Order Comment: 109-1 Performed By: #### L 100.0100 ####[facility] [address] [place], [place], [id number] Absolute Neut 5.0 X10 3/uL Normal 2.0-7.7 [facility] Comment on above: Order Comment: 109-1 Performed By: #### L 100.0100 ####[facility] [address] [place], [address] Basophils/100 WBC (Bld) 0.7 % Normal 0-1 [facility] Comment on above: Order Comment: 109-1 Performed By: #### L 100.0100 ####[facility] [address], [address] Eosinophils/100 WBC (Bld) 1.2 % Normal 0-5 [facility] Comment on above: Order Comment: 109-1 Performed By: #### L 100.0100 ####[facility] [address] [place], [address] Erythrocyte distribution width (RBC) [Ratio] 13.2 % Normal 11.6-14.6 [facility] Comment on above: Order Comment: 109-1 Performed By: #### L 100.0100 ####[facility] [address] [place], [address] Hematocrit (Bld) [Volume fraction] 37.3 % Low 40-54 [facility] Comment on above: Order Comment: 109-1 Performed By: #### L 100.0100 ####[facility] [address] [place], [address] Hemoglobin (Bld) [Mass/Vol] 12.3 g/dL Low 13.0-16.5 [facility] Comment on above: Order Comment: 109-1 Performed By: #### L 100.0100 ####[facility] [address] [place], [address] IG% 0.100 Normal 0.0-0.9 [facility] Comment on above: Order Comment: 109-1 Result Comment: IG% - Immature Granulocytes (promyelocytes, myelocytes andmetamyelocytes) > 1% indicates that a LEFT SHIFT is Present. Performed By: #### L 100.0100 ####[facility] [address] [place], [address] Lymphocytes/100 WBC (Bld) 22.9 % Normal 19-41 [facility] Comment on above: Order Comment: 109-1 Performed By: #### L 100.0100 ####[facility] [address] [place], [address] MCH (RBC) [Entitic mass] 30.1 pg Normal 27.0-32.0 [facility] Comment on above: Order Comment: 109-1 Performed By: #### L 100.0100 ####[facility] [address] [place], [address] MCHC (RBC) [Mass/Vol] 33.0 g/dL Normal 32-36 [facility] Comment on above: Order Comment: 109-1 Performed By: #### L 100.0100 ####[facility] [address] [place], [address] MCV (RBC) [Entitic vol] 91.4 fL Normal 80-94 [facility] Comment on above: Order Comment: 109-1 Performed By: #### L 100.0100 ####[facility] [address], [address] Monocytes/100 WBC (Bld) 8.1 % Normal 0-10 [facility] Comment on above: Order Comment: 109-1 Performed By: #### L 100.0100 ####[facility] [address], [address] Neutrophils/100 WBC (Bld) 67.0 % Normal 47-70 [facility] Comment on above: Order Comment: 109-1 Performed By: #### L 100.0100 ####[facility] [address] [place], [address] Nucleated RBC (Bld) [#/Vol] 0 10*3/uL Normal 0-5 [facility] Comment on above: Order Comment: 109-1 Performed By: #### L 100.0100 ####[facility] [address] [place], [address] Platelet mean volume (Bld) [Entitic vol] 11.3 fL Normal 6.2-12.0 [facility] Comment on above: Order Comment: 109-1 Performed By: #### L 100.0100 ####[facility] [address] [place], [address] Platelets (Bld) [#/Vol] 201 10*3/uL Normal 150-450 [facility] Comment on above: Order Comment: 109-1 Performed By: #### L 100.0100 ####[facility] [address] [place], [address] RBC (Bld) [#/Vol] 4.08 10*6/uL Low 4.6-6.2 [facility] Comment on above: Order Comment: 109-1 Performed By: #### L 100.0100 ####[facility] [address] [place], [address] RDW SD 44.0 fl High 35.1-43.9 [facility] Comment on above: Order Comment: 109-1 Performed By: #### L 100.0100 ####[facility] [address] [place], [address] WBC (Bld) [#/Vol] 7.5 10*3/uL Normal 4.4-11.0 [facility] Comment on above: Order Comment: 109-1 Performed By: #### L 100.0100 ####[facility] [address] [place], [address] Eosinophil percentageOrdered By: Renard Burgos on 10-28-2024 Eosinophils/100 WBC (Bld) 1.2 % 0-5 [facility] Erythrocyte distribution wid th ratioOrdered By: Renard Burgos on 10-28-2024 Erythrocyte distribution width (RBC) [Ratio] 13.2 % 11.6-14.6 [facility] Erythrocyte distribution wid th standard deviationOrdered By: Renard Burgos on 10-28-2024 Erythrocyte distribution width (RBC) [Ratio] 44.0 fl High 35.1-43.9 [facility] Hematocrit Auto (Bld) [Volum e fraction]Ordered By: Renard Burgos on 10-28-2024 Hematocrit (Bld) [Volume fraction] 37.3 % Low 40-54 [facility] Hemoglobin measurementOrdere d By: Renard Burgos on 10-28-2024 Hemoglobin (Bld) [Mass/Vol] 12.3 g/dL Low 13.0-16.5 [facility] Immature granulocytes/100 WB C Auto (Bld)Ordered By: Renard Burgos on 10-28-2024 Immature granulocytes/100 WBC (Bld) 0.100 % 0.0-0.9 [facility] Comment on above: IG% - Immature Granu locytes (promyelocytes, myelocytes and metamyelocytes) > 1% indicates that a LEFT SHIFT is Present. MCV (mean corpuscular volume ) determinationOrdered By: Renard Burgos on 10-28-2024 MCV (RBC) [Entitic vol] 91.4 fL 80-94 [facility] Mean corpuscular hemoglobin (MCH) determinationOrdered By: Renard Burgos on 10-28-2024 MCH (RBC) [Entitic mass] 30.1 pg 27.0-32.0 [facility] Mean corpuscular hemoglobin concentration (MCHC) determinationOrdered By: Renard Burgos on 10-28-2024 MCHC (RBC) [Mass/Vol] 33.0 g/dL 32-36 [facility] Mean platelet volume determi nationOrdered By: Renard Burgos on 10-28-2024 Platelet mean volume (Bld) [Entitic vol] 11.3 fL 6.2-12.0 [facility] Monocyte percentageOrdered B y: Renard Burgos on 10-28-2024 Monocytes/100 WBC (Bld) 8.1 % 0-10 [facility] Neutrophil percentageOrdered By: Renard Burgos on 10-28-2024 Neutrophils/100 WBC (Bld) 67.0 % 47-70 [facility] Nucleated red blood cell per centageOrdered By: Renard Burgos on 10-28-2024 Nucleated RBC/100 WBC (Bld) [Ratio] 0 % 0-5 [facility] Platelet countOrdered By: Garrick Bhatt on 10-28-2024 Platelets (Bld) [#/Vol] 201 10*3/uL 150-450 [facility] RBC Auto (Bld) [#/Vol]Ordere d By: Renard Burgos on 10-28-2024 RBC (Bld) [#/Vol] 4.08 10*6/uL Low 4.6-6.2 [facility] White blood cell (WBC) count Ordered By: Renard Burgos on 10-28-2024 WBC (Bld) [#/Vol] 7.5 10*3/uL 4.4-11.0 [facility] Absolute lymphocyte countOrd ered By: Renard Burgos on 10-21-2024 Lymphocytes Auto (Unsp spec) [#/Vol] 2.41 10*3/uL 0.83-4.51 [facility] Absolute neutrophil countOrd ered By: Renard Burgos on 10-21-2024 Neutrophils (Bld) [#/Vol] 5.2 10*3/uL 2.0-7.7 [facility] Automated lymphocyte count a s percentage of total leukocytesOrdered By: Renard Burgos on 10-21-2024 Lymphocytes/100 WBC Auto (Unsp spec) 28.2 % 19-41 [facility] Basophil percentageOrdered B y: Renard Burgos on 10-21-2024 Basophils/100 WBC (Bld) 0.6 % 0-1 [facility] CBC W/Diff, Automatedon 09-30 Absolute Lymph 2.41 X10 3/uL Normal 0.83-4.51 [facility] Comment on above: Order Comment: 109 Performed By: #### L 100.0100 ####[facility] [address] [place], [address] Absolute Neut 5.2 X10 3/uL Normal 2.0-7.7 [facility] Comment on above: Order Comment: 109 Performed By: #### L 100.0100 ####[facility] [address] [place], [address] Basophils/100 WBC (Bld) 0.6 % Normal 0-1 [facility] Comment on above: Order Comment: 109 Performed By: #### L 100.0100 ####[facility] [address] [place], [address] Eosinophils/100 WBC (Bld) 0.8 % Normal 0-5 [facility] Comment on above: Order Comment: 109 Performed By: #### L 100.0100 ####[facility] [address] [place], [address] Erythrocyte distribution width (RBC) [Ratio] 13.3 % Normal 11.6-14.6 [facility] Comment on above: Order Comment: 109 Performed By: #### L 100.0100 ####[facility] [address] [place], [address] Hematocrit (Bld) [Volume fraction] 38.9 % Low 40-54 [facility] Comment on above: Order Comment: 109 Performed By: #### L 100.0100 ####[facility] [address] [place], [address] Hemoglobin (Bld) [Mass/Vol] 12.8 g/dL Low 13.0-16.5 [facility] Comment on above: Order Comment: 109 Performed By: #### L 100.0100 ####[facility] [address] [place], [address] IG% 0.400 Normal 0.0-0.9 [facility] Comment on above: Order Comment: 109 Result Comment: IG% - Immature Granulocytes (promyelocytes, myelocytes andmetamyelocytes) > 1% indicates that a LEFT SHIFT is Present. Performed By: #### L 100.0100 ####[facility] [address] [place], [address] Lymphocytes/100 WBC (Bld) 28.2 % Normal 19-41 [facility] Comment on above: Order Comment: 109 Performed By: #### L 100.0100 ####[facility] [address] [place], [address] MCH (RBC) [Entitic mass] 30.1 pg Normal 27.0-32.0 [facility] Comment on above: Order Comment: 109 Performed By: #### L 100.0100 ####[facility] [address] [place], [address] MCHC (RBC) [Mass/Vol] 32.9 g/dL Normal 32-36 [facility] Comment on above: Order Comment: 109 Performed By: #### L 100.0100 ####[facility] [address] [place], [address] MCV (RBC) [Entitic vol] 91.5 fL Normal 80-94 [facility] Comment on above: Order Comment: 109 Performed By: #### L 100.0100 ####[facility] [address] [place], [address] Monocytes/100 WBC (Bld) 9.1 % Normal 0-10 [facility] Comment on above: Order Comment: 109 Performed By: #### L 100.0100 ####[facility] [address] [place], [address] Neutrophils/100 WBC (Bld) 60.9 % Normal 47-70 [facility] Comment on above: Order Comment: 109 Performed By: #### L 100.0100 ####[facility] [address] [place], [address] Nucleated RBC (Bld) [#/Vol] 0 10*3/uL Normal 0-5 [facility] Comment on above: Order Comment: 109 Performed By: #### L 100.0100 ####[facility] [address] [place], [address] Platelet mean volume (Bld) [Entitic vol] 11.2 fL Normal 6.2-12.0 [facility] Comment on above: Order Comment: 109 Performed By: #### L 100.0100 ####[facility] [address] [place], [address] Platelets (Bld) [#/Vol] 204 10*3/uL Normal 150-450 [facility] Comment on above: Order Comment: 109 Performed By: #### L 100.0100 ####[facility] [address] [place], [address] RBC (Bld) [#/Vol] 4.25 10*6/uL Low 4.6-6.2 [facility] Comment on above: Order Comment: 109 Performed By: #### L 100.0100 ####[facility] [address] [place], [address] RDW SD 44.5 fl High 35.1-43.9 [facility] Comment on above: Order Comment: 109 Performed By: #### L 100.0100 ####[facility] [address] [place], [address] WBC (Bld) [#/Vol] 8.5 10*3/uL Normal 4.4-11.0 [facility] Comment on above: Order Comment: 109 Performed By: #### L 100.0100 ####[facility] [address] [place], [address] Eosinophil percentageOrdered By: Renard Burgos on 10-21-2024 Eosinophils/100 WBC (Bld) 0.8 % 0-5 [facility] Erythrocyte distribution wid th ratioOrdered By: Renard Burgos on 10-21-2024 Erythrocyte distribution width (RBC) [Ratio] 13.3 % 11.6-14.6 [facility] Erythrocyte distribution wid th standard deviationOrdered By: Renard Burgos on 10-21-2024 Erythrocyte distribution width (RBC) [Ratio] 44.5 fl High 35.1-43.9 [facility] Hematocrit Auto (Bld) [Volum e fraction]Ordered By: Renard Burgos on 10-21-2024 Hematocrit (Bld) [Volume fraction] 38.9 % Low 40-54 [facility] Hemoglobin measurementOrdere d By: Renard Burgos on 10-21-2024 Hemoglobin (Bld) [Mass/Vol] 12.8 g/dL Low 13.0-16.5 [facility] Immature granulocytes/100 WB C Auto (Bld)Ordered By: Renard Burgos on 10-21-2024 Immature granulocytes/100 WBC (Bld) 0.400 % 0.0-0.9 [facility] Comment on above: IG% - Immature Granu locytes (promyelocytes, myelocytes and metamyelocytes) > 1% indicates that a LEFT SHIFT is Present. MCV (mean corpuscular volume ) determinationOrdered By: Renard Burgos on 10-21-2024 MCV (RBC) [Entitic vol] 91.5 fL 80-94 [facility] Mean corpuscular hemoglobin (MCH) determinationOrdered By: Renard Burgos on 10-21-2024 MCH (RBC) [Entitic mass] 30.1 pg 27.0-32.0 [facility] Mean corpuscular hemoglobin concentration (MCHC) determinationOrdered By: Renard Burgos on 10-21-2024 MCHC (RBC) [Mass/Vol] 32.9 g/dL 32-36 [facility] Mean platelet volume determi nationOrdered By: Renard Burgos on 10-21-2024 Platelet mean volume (Bld) [Entitic vol] 11.2 fL 6.2-12.0 [facility] Monocyte percentageOrdered B y: Renard Burgos on 10-21-2024 Monocytes/100 WBC (Bld) 9.1 % 0-10 [facility] Neutrophil percentageOrdered By: Renard Burgos on 10-21-2024 Neutrophils/100 WBC (Bld) 60.9 % 47-70 [facility] Nucleated red blood cell per centageOrdered By: Renard Burgos on 10-21-2024 Nucleated RBC/100 WBC (Bld) [Ratio] 0 % 0-5 [facility] Platelet countOrdered By: Garrick Bhatt on 10-21-2024 Platelets (Bld) [#/Vol] 204 10*3/uL 150-450 [facility] RBC Auto (Bld) [#/Vol]Ordere d By: Renard Burgos on 10-21-2024 RBC (Bld) [#/Vol] 4.25 10*6/uL Low 4.6-6.2 [facility] White blood cell (WBC) count Ordered By: Renard Burgos on 10-21-2024 WBC (Bld) [#/Vol] 8.5 10*3/uL 4.4-11.0 [facility] Absolute lymphocyte countOrd ered By: Renard Burgos on 10-14-2024 Lymphocytes Auto (Unsp spec) [#/Vol] 1.77 10*3/uL 0.83-4.51 [facility] Absolute neutrophil countOrd ered By: Renard Burgos on 10-14-2024 Neutrophils (Bld) [#/Vol] 4.8 10*3/uL 2.0-7.7 [facility] Automated lymphocyte count a s percentage of total leukocytesOrdered By: Renard Burgos on 10-14-2024 Lymphocytes/100 WBC Auto (Unsp spec) 24.2 % 19-41 [facility] Basophil percentageOrdered B y: Renard Burgos on 10-14-2024 Basophils/100 WBC (Bld) 0.7 % 0-1 [facility] CBC W/Diff, Automatedon 09-29 Absolute Lymph 1.77 X10 3/uL Normal 0.83-4.51 [facility] Comment on above: Order Comment: 109 Performed By: #### L 100.0100 ####[facility] [address] [place], [address] Absolute Neut 4.8 X10 3/uL Normal 2.0-7.7 [facility] Comment on above: Order Comment: 109 Performed By: #### L 100.0100 ####[facility] [address] [place], [address] Basophils/100 WBC (Bld) 0.7 % Normal 0-1 [facility] Comment on above: Order Comment: 109 Performed By: #### L 100.0100 ####[facility] [address], [address] Eosinophils/100 WBC (Bld) 0.8 % Normal 0-5 [facility] Comment on above: Order Comment: 109 Performed By: #### L 100.0100 ####[facility] [address] [place], [address] Erythrocyte distribution width (RBC) [Ratio] 13.2 % Normal 11.6-14.6 [facility] Comment on above: Order Comment: 109 Performed By: #### L 100.0100 ####[facility] [address] [place], [address] Hematocrit (Bld) [Volume fraction] 42.7 % Normal 40-54 [facility] Comment on above: Order Comment: 109 Performed By: #### L 100.0100 ####[facility] [address] [place], [address] Hemoglobin (Bld) [Mass/Vol] 13.9 g/dL Normal 13.0-16.5 [facility] Comment on above: Order Comment: 109 Performed By: #### L 100.0100 ####[facility] [address] [place], [address] IG% 0.300 Normal 0.0-0.9 [facility] Comment on above: Order Comment: 109 Result Comment: IG% - Immature Granulocytes (promyelocytes, myelocytes andmetamyelocytes) > 1% indicates that a LEFT SHIFT is Present. Performed By: #### L 100.0100 ####[facility] [address] [place], [address] Lymphocytes/100 WBC (Bld) 24.2 % Normal 19-41 [facility] Comment on above: Order Comment: 109 Performed By: #### L 100.0100 ####[facility] [address] [place], [address] MCH (RBC) [Entitic mass] 29.7 pg Normal 27.0-32.0 [facility] Comment on above: Order Comment: 109 Performed By: #### L 100.0100 ####[facility] [address] [place], [address] MCHC (RBC) [Mass/Vol] 32.6 g/dL Normal 32-36 [facility] Comment on above: Order Comment: 109 Performed By: #### L 100.0100 ####[facility] [address] [place], [address] MCV (RBC) [Entitic vol] 91.2 fL Normal 80-94 [facility] Comment on above: Order Comment: 109 Performed By: #### L 100.0100 ####[facility] [address] [place], [address] Monocytes/100 WBC (Bld) 8.6 % Normal 0-10 [facility] Comment on above: Order Comment: 109 Performed By: #### L 100.0100 ####[facility] [address] [place], [address] Neutrophils/100 WBC (Bld) 65.4 % Normal 47-70 [facility] Comment on above: Order Comment: 109 Performed By: #### L 100.0100 ####[facility] [address] [place], [address] Nucleated RBC (Bld) [#/Vol] 0 10*3/uL Normal 0-5 [facility] Comment on above: Order Comment: 109 Performed By: #### L 100.0100 ####[facility] [address] [place], [address] Platelet mean volume (Bld) [Entitic vol] 11.1 fL Normal 6.2-12.0 [facility] Comment on above: Order Comment: 109 Performed By: #### L 100.0100 ####[facility] [address] [place], [address] Platelets (Bld) [#/Vol] 232 10*3/uL Normal 150-450 [facility] Comment on above: Order Comment: 109 Performed By: #### L 100.0100 ####[facility] [address] [place], [address] RBC (Bld) [#/Vol] 4.68 10*6/uL Normal 4.6-6.2 [facility] Comment on above: Order Comment: 109 Performed By: #### L 100.0100 ####[facility] [address] [place], [address] RDW SD 44.1 fl High 35.1-43.9 [facility] Comment on above: Order Comment: 109 Performed By: #### L 100.0100 ####[facility] [address] [place], [address] WBC (Bld) [#/Vol] 7.3 10*3/uL Normal 4.4-11.0 [facility] Comment on above: Order Comment: 109 Performed By: #### L 100.0100 ####[facility] [address] [place], [address] Eosinophil percentageOrdered By: Renard Burgos on 10-14-2024 Eosinophils/100 WBC (Bld) 0.8 % 0-5 [facility] Erythrocyte distribution wid th ratioOrdered By: Renard Burgos on 10-14-2024 Erythrocyte distribution width (RBC) [Ratio] 13.2 % 11.6-14.6 [facility] Erythrocyte distribution wid th standard deviationOrdered By: Renard Burgos on 10-14-2024 Erythrocyte distribution width (RBC) [Ratio] 44.1 fl High 35.1-43.9 [facility] Hematocrit Auto (Bld) [Volum e fraction]Ordered By: Renard Burgos on 10-14-2024 Hematocrit (Bld) [Volume fraction] 42.7 % 40-54 [facility] Hemoglobin measurementOrdere d By: Renard Burgos on 10-14-2024 Hemoglobin (Bld) [Mass/Vol] 13.9 g/dL 13.0-16.5 [facility] Immature granulocytes/100 WB C Auto (Bld)Ordered By: Renard Burgos on 10-14-2024 Immature granulocytes/100 WBC (Bld) 0.300 % 0.0-0.9 [facility] Comment on above: IG% - Immature Granu locytes (promyelocytes, myelocytes and metamyelocytes) > 1% indicates that a LEFT SHIFT is Present. MCV (mean corpuscular volume ) determinationOrdered By: Renard Burgos on 10-14-2024 MCV (RBC) [Entitic vol] 91.2 fL 80-94 [facility] Mean corpuscular hemoglobin (MCH) determinationOrdered By: Renard Burgos on 10-14-2024 MCH (RBC) [Entitic mass] 29.7 pg 27.0-32.0 [facility] Mean corpuscular hemoglobin concentration (MCHC) determinationOrdered By: Renard Burgos on 10-14-2024 MCHC (RBC) [Mass/Vol] 32.6 g/dL 32-36 [facility] Mean platelet volume determi nationOrdered By: Renard Burgos on 10-14-2024 Platelet mean volume (Bld) [Entitic vol] 11.1 fL 6.2-12.0 [facility] Monocyte percentageOrdered B y: Renard Burgos on 10-14-2024 Monocytes/100 WBC (Bld) 8.6 % 0-10 [facility] Neutrophil percentageOrdered By: Renard Burgos on 10-14-2024 Neutrophils/100 WBC (Bld) 65.4 % 47-70 [facility] Nucleated red blood cell per centageOrdered By: Renard Burgos on 10-14-2024 Nucleated RBC/100 WBC (Bld) [Ratio] 0 % 0-5 [facility] Platelet countOrdered By: Garrick Bhatt on 10-14-2024 Platelets (Bld) [#/Vol] 232 10*3/uL 150-450 [facility] RBC Auto (Bld) [#/Vol]Ordere d By: Renard Burgos on 10-14-2024 RBC (Bld) [#/Vol] 4.68 10*6/uL 4.6-6.2 [facility] White blood cell (WBC) count Ordered By: Renard Burgos on 10-14-2024 WBC (Bld) [#/Vol] 7.3 10*3/uL 4.4-11.0 [facility] Absolute lymphocyte countOrd ered By: Renard Burgos on 10-07-2024 Lymphocytes Auto (Unsp spec) [#/Vol] 2.20 10*3/uL 0.83-4.51 [facility] Absolute neutrophil countOrd ered By: Renard Burgos on 10-07-2024 Neutrophils (Bld) [#/Vol] 5.1 10*3/uL 2.0-7.7 [facility] Automated lymphocyte count a s percentage of total leukocytesOrdered By: Renard Burgos on 10-07-2024 Lymphocytes/100 WBC Auto (Unsp spec) 27.2 % 19-41 [facility] Basophil percentageOrdered B y: Renard Burgos on 10-07-2024 Basophils/100 WBC (Bld) 0.5 % 0-1 [facility] CBC W/Diff, Automatedon Absolute Lymph 2.20 X10 3/uL Normal 0.83-4.51 [facility] Comment on above: Order Comment: 109-1 Performed By: #### L 100.0100 ####[facility] [address] [place], [address] Absolute Neut 5.1 X10 3/uL Normal 2.0-7.7 [facility] Comment on above: Order Comment: 109-1 Performed By: #### L 100.0100 ####[facility] [address] [place], [address] Basophils/100 WBC (Bld) 0.5 % Normal 0-1 [facility] Comment on above: Order Comment: 109-1 Performed By: #### L 100.0100 ####[facility] [address] [place], [address] Eosinophils/100 WBC (Bld) 0.9 % Normal 0-5 [facility] Comment on above: Order Comment: 109-1 Performed By: #### L 100.0100 ####[facility] [address] [place], [address] Erythrocyte distribution width (RBC) [Ratio] 13.2 % Normal 11.6-14.6 [facility] Comment on above: Order Comment: 109-1 Performed By: #### L 100.0100 ####[facility] [address] [place], [address] Hematocrit (Bld) [Volume fraction] 40.8 % Normal 40-54 [facility] Comment on above: Order Comment: 109-1 Performed By: #### L 100.0100 ####[facility] [address] [place], [address] Hemoglobin (Bld) [Mass/Vol] 13.8 g/dL Normal 13.0-16.5 [facility] Comment on above: Order Comment: 109-1 Performed By: #### L 100.0100 ####[facility] [address] [place], [address] IG% 0.200 Normal 0.0-0.9 [facility] Comment on above: Order Comment: 109-1 Result Comment: IG% - Immature Granulocytes (promyelocytes, myelocytes andmetamyelocytes) > 1% indicates that a LEFT SHIFT is Present. Performed By: #### L 100.0100 ####[facility] [address] [place], [address] Lymphocytes/100 WBC (Bld) 27.2 % Normal 19-41 [facility] Comment on above: Order Comment: 109-1 Performed By: #### L 100.0100 ####[facility] [address] [place], [address] MCH (RBC) [Entitic mass] 30.0 pg Normal 27.0-32.0 [facility] Comment on above: Order Comment: 109-1 Performed By: #### L 100.0100 ####[facility] [address] [place], [address] MCHC (RBC) [Mass/Vol] 33.8 g/dL Normal 32-36 [facility] Comment on above: Order Comment: 109-1 Performed By: #### L 100.0100 ####[facility] [address] [place], [address] MCV (RBC) [Entitic vol] 88.7 fL Normal 80-94 [facility] Comment on above: Order Comment: 109-1 Performed By: #### L 100.0100 ####[facility] [address] [place], [address] Monocytes/100 WBC (Bld) 8.4 % Normal 0-10 [facility] Comment on above: Order Comment: 109-1 Performed By: #### L 100.0100 ####[facility] [address] [place], [address] Neutrophils/100 WBC (Bld) 62.8 % Normal 47-70 [facility] Comment on above: Order Comment: 109-1 Performed By: #### L 100.0100 ####[facility] [address] [place], [address] Nucleated RBC (Bld) [#/Vol] 0 10*3/uL Normal 0-5 [facility] Comment on above: Order Comment: 109-1 Performed By: #### L 100.0100 ####[facility] [address] [place], [address] Platelet mean volume (Bld) [Entitic vol] 11.2 fL Normal 6.2-12.0 [facility] Comment on above: Order Comment: 109-1 Performed By: #### L 100.0100 ####[facility] [address] [place], [address] Platelets (Bld) [#/Vol] 214 10*3/uL Normal 150-450 [facility] Comment on above: Order Comment: 109-1 Performed By: #### L 100.0100 ####[facility] [address] [place], [address] RBC (Bld) [#/Vol] 4.60 10*6/uL Normal 4.6-6.2 [facility] Comment on above: Order Comment: 109-1 Performed By: #### L 100.0100 ####[facility] [address] [place], [address] RDW SD 43.0 fl Normal 35.1-43.9 [facility] Comment on above: Order Comment: 109-1 Performed By: #### L 100.0100 ####[facility] [address] [place], [address] WBC (Bld) [#/Vol] 8.1 10*3/uL Normal 4.4-11.0 [facility] Comment on above: Order Comment: 109-1 Performed By: #### L 100.0100 ####[facility] [address] [place], [address] Eosinophil percentageOrdered By: Renard Burgos on 10-07-2024 Eosinophils/100 WBC (Bld) 0.9 % 0-5 [facility] Erythrocyte distribution wid th ratioOrdered By: Renard Burgos on 10-07-2024 Erythrocyte distribution width (RBC) [Ratio] 13.2 % 11.6-14.6 [facility] Erythrocyte distribution wid th standard deviationOrdered By: Renard Burgos on 10-07-2024 Erythrocyte distribution width (RBC) [Ratio] 43.0 fl 35.1-43.9 [facility] Hematocrit Auto (Bld) [Volum e fraction]Ordered By: Renard Burgos on 10-07-2024 Hematocrit (Bld) [Volume fraction] 40.8 % 40-54 [facility] Hemoglobin measurementOrdere d By: Renard Burgos on 10-07-2024 Hemoglobin (Bld) [Mass/Vol] 13.8 g/dL 13.0-16.5 [facility] Immature granulocytes/100 WB C Auto (Bld)Ordered By: Renard Burgos on 10-07-2024 Immature granulocytes/100 WBC (Bld) 0.200 % 0.0-0.9 [facility] Comment on above: IG% - Immature Granu locytes (promyelocytes, myelocytes and metamyelocytes) > 1% indicates that a LEFT SHIFT is Present. MCV (mean corpuscular volume ) determinationOrdered By: Renard Burgos on 10-07-2024 MCV (RBC) [Entitic vol] 88.7 fL 80-94 [facility] Mean corpuscular hemoglobin (MCH) determinationOrdered By: Renard Burgos on 10-07-2024 MCH (RBC) [Entitic mass] 30.0 pg 27.0-32.0 [facility] Mean corpuscular hemoglobin concentration (MCHC) determinationOrdered By: Renard Burgos on 10-07-2024 MCHC (RBC) [Mass/Vol] 33.8 g/dL 32-36 [facility] Mean platelet volume determi nationOrdered By: Renard Burgos on 10-07-2024 Platelet mean volume (Bld) [Entitic vol] 11.2 fL 6.2-12.0 [facility] Monocyte percentageOrdered B y: Renard Burgos on 10-07-2024 Monocytes/100 WBC (Bld) 8.4 % 0-10 [facility] Neutrophil percentageOrdered By: Renard Burgos on 10-07-2024 Neutrophils/100 WBC (Bld) 62.8 % 47-70 [facility] Nucleated red blood cell per centageOrdered By: Renard Burgos on 10-07-2024 Nucleated RBC/100 WBC (Bld) [Ratio] 0 % 0-5 [facility] Platelet countOrdered By: Garrick Bhatt on 10-07-2024 Platelets (Bld) [#/Vol] 214 10*3/uL 150-450 [facility] RBC Auto (Bld) [#/Vol]Ordere d By: Renard Burgos on 10-07-2024 RBC (Bld) [#/Vol] 4.60 10*6/uL 4.6-6.2 [facility] White blood cell (WBC) count Ordered By: Renard Burgos on 10-07-2024 WBC (Bld) [#/Vol] 8.1 10*3/uL 4.4-11.0 [facility] Absolute lymphocyte countOrd ered By: Renard Burgos on 09-30-2024 Lymphocytes Auto (Unsp spec) [#/Vol] 3.13 10*3/uL 0.83-4.51 [facility] Absolute neutrophil countOrd ered By: Renard Burgos on 09-30-2024 Neutrophils (Bld) [#/Vol] 5.6 10*3/uL 2.0-7.7 [facility] Automated lymphocyte count a s percentage of total leukocytesOrdered By: Renard Burgos on 09-30-2024 Lymphocytes/100 WBC Auto (Unsp spec) 31.7 % 19-41 [facility] Basophil percentageOrdered B y: Renard Burgos on 09-30-2024 Basophils/100 WBC (Bld) 0.6 % 0-1 [facility] CBC W/Diff, Automatedon Absolute Lymph 3.13 X10 3/uL Normal 0.83-4.51 [facility] Comment on above: Order Comment: 109-1 Performed By: #### L 100.0100 ####[facility] [address] [place], [address] Absolute Neut 5.6 X10 3/uL Normal 2.0-7.7 [facility] Comment on above: Order Comment: 109-1 Performed By: #### L 100.0100 ####[facility] [address] [place], [address] Basophils/100 WBC (Bld) 0.6 % Normal 0-1 [facility] Comment on above: Order Comment: 109-1 Performed By: #### L 100.0100 ####[facility] [address], [address] Eosinophils/100 WBC (Bld) 0.7 % Normal 0-5 [facility] Comment on above: Order Comment: 109-1 Performed By: #### L 100.0100 ####[facility] [address] [place], [address] Erythrocyte distribution width (RBC) [Ratio] 13.0 % Normal 11.6-14.6 [facility] Comment on above: Order Comment: 109-1 Performed By: #### L 100.0100 ####[facility] [address] [place], [address] Hematocrit (Bld) [Volume fraction] 46.9 % Normal 40-54 [facility] Comment on above: Order Comment: 109-1 Performed By: #### L 100.0100 ####[facility] [address] [place], [address] Hemoglobin (Bld) [Mass/Vol] 15.3 g/dL Normal 13.0-16.5 [facility] Comment on above: Order Comment: 109-1 Performed By: #### L 100.0100 ####[facility] [address] [place], [address] IG% 0.300 Normal 0.0-0.9 [facility] Comment on above: Order Comment: 109-1 Result Comment: IG% - Immature Granulocytes (promyelocytes, myelocytes andmetamyelocytes) > 1% indicates that a LEFT SHIFT is Present. Performed By: #### L 100.0100 ####[facility] [address] [place], [address] Lymphocytes/100 WBC (Bld) 31.7 % Normal 19-41 [facility] Comment on above: Order Comment: 109-1 Performed By: #### L 100.0100 ####[facility] [address] [place], [address] MCH (RBC) [Entitic mass] 29.7 pg Normal 27.0-32.0 [facility] Comment on above: Order Comment: 109-1 Performed By: #### L 100.0100 ####[facility] [address] [place], [address] MCHC (RBC) [Mass/Vol] 32.6 g/dL Normal 32-36 [facility] Comment on above: Order Comment: 109-1 Performed By: #### L 100.0100 ####[facility] [address] [place], [address] MCV (RBC) [Entitic vol] 91.1 fL Normal 80-94 [facility] Comment on above: Order Comment: 109-1 Performed By: #### L 100.0100 ####[facility] [address] [place], [address] Monocytes/100 WBC (Bld) 10.4 % High 0-10 [facility] Comment on above: Order Comment: 109-1 Performed By: #### L 100.0100 ####[facility] [address] [place], [address] Neutrophils/100 WBC (Bld) 56.3 % Normal 47-70 [facility] Comment on above: Order Comment: 109-1 Performed By: #### L 100.0100 ####[facility] [address] [place], [address] Nucleated RBC (Bld) [#/Vol] 0 10*3/uL Normal 0-5 [facility] Comment on above: Order Comment: 109-1 Performed By: #### L 100.0100 ####[facility] [address] [place], [address] Platelet mean volume (Bld) [Entitic vol] 11.7 fL Normal 6.2-12.0 [facility] Comment on above: Order Comment: 109-1 Performed By: #### L 100.0100 ####[facility] [address] [place], [address] Platelets (Bld) [#/Vol] 208 10*3/uL Normal 150-450 [facility] Comment on above: Order Comment: 109-1 Performed By: #### L 100.0100 ####[facility] [address] [place], [address] RBC (Bld) [#/Vol] 5.15 10*6/uL Normal 4.6-6.2 [facility] Comment on above: Order Comment: 109-1 Performed By: #### L 100.0100 ####[facility] [address] [place], [address] RDW SD 42.7 fl Normal 35.1-43.9 [facility] Comment on above: Order Comment: 109-1 Performed By: #### L 100.0100 ####[facility] [address] [place], [address] WBC (Bld) [#/Vol] 9.9 10*3/uL Normal 4.4-11.0 [facility] Comment on above: Order Comment: 109-1 Performed By: #### L 100.0100 ####[facility] [address] [place], [address] Eosinophil percentageOrdered By: Renard Burgos on 09-30-2024 Eosinophils/100 WBC (Bld) 0.7 % 0-5 [facility] Erythrocyte distribution wid th ratioOrdered By: Renard Burgos on 09-30-2024 Erythrocyte distribution width (RBC) [Ratio] 13.0 % 11.6-14.6 [facility] Erythrocyte distribution wid th standard deviationOrdered By: Renard Burgos on 09-30-2024 Erythrocyte distribution width (RBC) [Ratio] 42.7 fl 35.1-43.9 [facility] Hematocrit Auto (Bld) [Volum e fraction]Ordered By: Renard Burgso on 09-30-2024 Hematocrit (Bld) [Volume fraction] 46.9 % 40-54 [facility] Hemoglobin measurementOrdere d By: Renard Burgos on 09-30-2024 Hemoglobin (Bld) [Mass/Vol] 15.3 g/dL 13.0-16.5 [facility] Immature granulocytes/100 WB C Auto (Bld)Ordered By: Renard Burgos on 09-30-2024 Immature granulocytes/100 WBC (Bld) 0.300 % 0.0-0.9 [facility] Comment on above: IG% - Immature Granu locytes (promyelocytes, myelocytes and metamyelocytes) > 1% indicates that a LEFT SHIFT is Present. MCV (mean corpuscular volume ) determinationOrdered By: Renard Burgos on 09-30-2024 MCV (RBC) [Entitic vol] 91.1 fL 80-94 [facility] Mean corpuscular hemoglobin (MCH) determinationOrdered By: Renard Burgos on 09-30-2024 MCH (RBC) [Entitic mass] 29.7 pg 27.0-32.0 [facility] Mean corpuscular hemoglobin concentration (MCHC) determinationOrdered By: Renard Burgos on 09-30-2024 MCHC (RBC) [Mass/Vol] 32.6 g/dL 32-36 [facility] Mean platelet volume determi nationOrdered By: Renard Burgos on 09-30-2024 Platelet mean volume (Bld) [Entitic vol] 11.7 fL 6.2-12.0 [facility] Monocyte percentageOrdered B y: Renard Burgos on 09-30-2024 Monocytes/100 WBC (Bld) 10.4 % High 0-10 [facility] Neutrophil percentageOrdered By: Renard Burgos on 09-30-2024 Neutrophils/100 WBC (Bld) 56.3 % 47-70 [facility] Nucleated red blood cell per centageOrdered By: Renard Burgos on 09-30-2024 Nucleated RBC/100 WBC (Bld) [Ratio] 0 % 0-5 [facility] Platelet countOrdered By: Garrick Bhatt on 09-30-2024 Platelets (Bld) [#/Vol] 208 10*3/uL 150-450 [facility] RBC Auto (Bld) [#/Vol]Ordere d By: Renard Burgos on 09-30-2024 RBC (Bld) [#/Vol] 5.15 10*6/uL 4.6-6.2 [facility] White blood cell (WBC) count Ordered By: Renard Burgos on 09-30-2024 WBC (Bld) [#/Vol] 9.9 10*3/uL 4.4-11.0 [facility] Absolute lymphocyte countOrd ered By: Renard Burgos on 09-24-2024 Lymphocytes Auto (Unsp spec) [#/Vol] 1.97 10*3/uL 0.83-4.51 [facility] Absolute neutrophil countOrd ered By: Renard Burgos on 09-24-2024 Neutrophils (Bld) [#/Vol] 6.8 10*3/uL 2.0-7.7 [facility] Automated blood erythrocyte countOrdered By: Renard Burgos on 09-24-2024 RBC (Bld) [#/Vol] 4.48 10*6/uL Low 4.6-6.2 [facility] Comment on above: Order Comment: 109 Performed By: #### L 100.0100 ####[facility] [address] [place], [place], [address] Automated blood hematocrit ( percentage)Ordered By: Renard Burgos on 09-24-2024 Hematocrit (Bld) [Volume fraction] 40.4 % Normal 40-54 [facility] Comment on above: Order Comment: 109 Performed By: #### L 100.0100 ####[facility] [address] [place], [place], [address] Automated lymphocyte count a s percentage of total leukocytesOrdered By: Renard Burgos on 09-24-2024 Lymphocytes/100 WBC Auto (Unsp spec) 20.5 % 19-41 [facility] Basophil percentageOrdered B y: Renard Burgos on 09-24-2024 Basophils/100 WBC (Bld) 0.5 % Normal 0-1 [facility] Comment on above: Order Comment: 109 Performed By: #### L 100.0100 ####[facility] [address] [place], [address] CBC W/Diff, Automatedon 05-2 Absolute Lymph 1.97 X10 3/uL Normal 0.83-4.51 [facility] Comment on above: Order Comment: 109 Performed By: #### L 100.0100 ####[facility] [address] [place], [address] Absolute Neut 6.8 X10 3/uL Normal 2.0-7.7 [facility] Comment on above: Order Comment: 109 Performed By: #### L 100.0100 ####[facility] [address] [place], [address] IG% 0.300 Normal 0.0-0.9 [facility] Comment on above: Order Comment: 109 Result Comment: IG% - Immature Granulocytes (promyelocytes, myelocytes andmetamyelocytes) > 1% indicates that a LEFT SHIFT is Present. Performed By: #### L 100.0100 ####[facility] [address] [place], [address] Lymphocytes/100 WBC (Bld) 20.5 % Normal 19-41 [facility] Comment on above: Order Comment: 109 Performed By: #### L 100.0100 ####[facility] [address] [place], [address] Nucleated RBC (Bld) [#/Vol] 0 10*3/uL Normal 0-5 [facility] Comment on above: Order Comment: 109 Performed By: #### L 100.0100 ####[facility] [address] [place], [address] RDW SD 42.9 fl Normal 35.1-43.9 [facility] Comment on above: Order Comment: 109 Performed By: #### L 100.0100 ####[facility] [address] [place], [place], [address] Eosinophil percentageOrdered By: Renard Burgos on 09-24-2024 Eosinophils/100 WBC (Bld) 0.5 % Normal 0-5 [facility] Comment on above: Order Comment: 109 Performed By: #### L 100.0100 ####[facility] [address] [place], [place], [address] Erythrocyte distribution wid th ratioOrdered By: Renard Burgos on 09-24-2024 Erythrocyte distribution width (RBC) [Ratio] 13.1 % Normal 11.6-14.6 [facility] Comment on above: Order Comment: 109 Performed By: #### L 100.0100 ####[facility] [address] [place], [place], [address] Erythrocyte distribution wid th standard deviationOrdered By: Renard Burgos on 09-24-2024 Erythrocyte distribution width (RBC) [Ratio] 42.9 fl 35.1-43.9 [facility] Hemoglobin measurementOrdere d By: Renard Burgos on 09-24-2024 Hemoglobin (Bld) [Mass/Vol] 13.4 g/dL Normal 13.0-16.5 [facility] Comment on above: Order Comment: 109 Performed By: #### L 100.0100 ####[facility] [address] [place], [place], [phone] Immature granulocytes/100 WB C Auto (Bld)Ordered By: Renard Burgos on 09-24-2024 Immature granulocytes/100 WBC (Bld) 0.300 % 0.0-0.9 [facility] Comment on above: IG% - Immature Granu locytes (promyelocytes, myelocytes and metamyelocytes) > 1% indicates that a LEFT SHIFT is Present. MCV (mean corpuscular volume ) determinationOrdered By: Renard Burgos on 09-24-2024 MCV (RBC) [Entitic vol] 90.2 fL Normal 80-94 [facility] Comment on above: Order Comment: 109 Performed By: #### L 100.0100 ####[facility] [address] [place], [address] Mean corpuscular hemoglobin (MCH) determinationOrdered By: Renard Burgos on 09-24-2024 MCH (RBC) [Entitic mass] 29.9 pg Normal 27.0-32.0 [facility] Comment on above: Order Comment: 109 Performed By: #### L 100.0100 ####[facility] [address] [place], [address] Mean corpuscular hemoglobin concentration (MCHC) determinationOrdered By: Renard Burgos on 09-24-2024 MCHC (RBC) [Mass/Vol] 33.2 g/dL Normal 32-36 [facility] Comment on above: Order Comment: 109 Performed By: #### L 100.0100 ####[facility] [address] [place], [address] Mean platelet volume determi nationOrdered By: Renard Burgos on 09-24-2024 Platelet mean volume (Bld) [Entitic vol] 11.3 fL Normal 6.2-12.0 [facility] Comment on above: Order Comment: 109 Performed By: #### L 100.0100 ####[facility] [address] [place], [address] Monocyte percentageOrdered B y: Renard Burgos on 09-24-2024 Monocytes/100 WBC (Bld) 7.2 % Normal 0-10 [facility] Comment on above: Order Comment: 109 Performed By: #### L 100.0100 ####[facility] [address] [place], [address] Neutrophil percentageOrdered By: Renard Burgos on 09-24-2024 Neutrophils/100 WBC (Bld) 71.0 % High 47-70 [facility] Comment on above: Order Comment: 109 Performed By: #### L 100.0100 ####[facility] [address] [place], [address] Nucleated red blood cell per centageOrdered By: Renard Burgos on 09-24-2024 Nucleated RBC/100 WBC (Bld) [Ratio] 0 % 0-5 [facility] Platelet countOrdered By: Garrick Bhatt on 09-24-2024 Platelets (Bld) [#/Vol] 187 10*3/uL Normal 150-450 [facility] Comment on above: Order Comment: 109 Performed By: #### L 100.0100 ####[facility] [address] [place], [address] White blood cell (WBC) count Ordered By: Renard Burgos on 09-24-2024 WBC (Bld) [#/Vol] 9.6 10*3/uL Normal 4.4-11.0 [facility] Comment on above: Order Comment: 109 Performed By: #### L 100.0100 ####[facility] [address] [place], [address] Absolute lymphocyte countOrd ered By: Renard Burgos on 09-16-2024 Lymphocytes Auto (Unsp spec) [#/Vol] 2.44 10*3/uL 0.83-4.51 [facility] Absolute neutrophil countOrd ered By: Renard Burgos on 09-16-2024 Neutrophils (Bld) [#/Vol] 5.5 10*3/uL 2.0-7.7 [facility] Automated lymphocyte count a s percentage of total leukocytesOrdered By: Renard Burgos on 09-16-2024 Lymphocytes/100 WBC Auto (Unsp spec) 27.7 % 19- [facility] Basophil percentageOrdered B y: Renard Burgos on 09-16-2024 Basophils/100 WBC (Bld) 0.8 % 0-1 [facility] CBC W/Diff, Automatedon 08-29 Absolute Lymph 2.44 X10 3/uL Normal 0.83-4.51 [facility] Comment on above: Order Comment: 109.1 Performed By: #### L 100.0100 ####[facility] [address] [place], [address] Absolute Neut 5.5 X10 3/uL Normal 2.0-7.7 [facility] Comment on above: Order Comment: 109.1 Performed By: #### L 100.0100 ####[facility] [address] [place], [address] Basophils/100 WBC (Bld) 0.8 % Normal 0-1 [facility] Comment on above: Order Comment: 109.1 Performed By: #### L 100.0100 ####[facility] [address] [place], [address] Eosinophils/100 WBC (Bld) 0.7 % Normal 0-5 [facility] Comment on above: Order Comment: 109.1 Performed By: #### L 100.0100 ####[facility] [address], [address] Erythrocyte distribution width (RBC) [Ratio] 13.1 % Normal 11.6-14.6 [facility] Comment on above: Order Comment: 109.1 Performed By: #### L 100.0100 ####[facility] [address] [place], [address] Hematocrit (Bld) [Volume fraction] 46.8 % Normal 40-54 [facility] Comment on above: Order Comment: 109.1 Performed By: #### L 100.0100 ####[facility] [address] [place], [address] Hemoglobin (Bld) [Mass/Vol] 15.4 g/dL Normal 13.0-16.5 [facility] Comment on above: Order Comment: 109.1 Performed By: #### L 100.0100 ####[facility] [address] [place], [address] IG% 0.200 Normal 0.0-0.9 [facility] Comment on above: Order Comment: 109.1 Result Comment: IG% - Immature Granulocytes (promyelocytes, myelocytes andmetamyelocytes) > 1% indicates that a LEFT SHIFT is Present. Performed By: #### L 100.0100 ####[facility] [address], [address] Lymphocytes/100 WBC (Bld) 27.7 % Normal 19-41 [facility] Comment on above: Order Comment: 109.1 Performed By: #### L 100.0100 ####[facility] [address] [place], [address] MCH (RBC) [Entitic mass] 30.1 pg Normal 27.0-32.0 [facility] Comment on above: Order Comment: 109.1 Performed By: #### L 100.0100 ####[facility] [address] [place], [address] MCHC (RBC) [Mass/Vol] 32.9 g/dL Normal 32-36 [facility] Comment on above: Order Comment: 109.1 Performed By: #### L 100.0100 ####[facility] [address] [place], [address] MCV (RBC) [Entitic vol] 91.4 fL Normal 80-94 [facility] Comment on above: Order Comment: 109.1 Performed By: #### L 100.0100 ####[facility] [address] [place], [address] Monocytes/100 WBC (Bld) 8.5 % Normal 0-10 [facility] Comment on above: Order Comment: 109.1 Performed By: #### L 100.0100 ####[facility] [address] [place], [address] Neutrophils/100 WBC (Bld) 62.1 % Normal 47-70 [facility] Comment on above: Order Comment: 109.1 Performed By: #### L 100.0100 ####[facility] [address] [place], [address] Nucleated RBC (Bld) [#/Vol] 0 10*3/uL Normal 0-5 [facility] Comment on above: Order Comment: 109.1 Performed By: #### L 100.0100 ####[facility] [address] [place], [address] Platelet mean volume (Bld) [Entitic vol] 10.6 fL Normal 6.2-12.0 [facility] Comment on above: Order Comment: 109.1 Performed By: #### L 100.0100 ####[facility] [address] [place], [address] Platelets (Bld) [#/Vol] 190 10*3/uL Normal 150-450 [facility] Comment on above: Order Comment: 109.1 Performed By: #### L 100.0100 ####[facility] [address] [place], [address] RBC (Bld) [#/Vol] 5.12 10*6/uL Normal 4.6-6.2 [facility] Comment on above: Order Comment: 109.1 Performed By: #### L 100.0100 ####[facility] [address] [place], [address] RDW SD 43.3 fl Normal 35.1-43.9 [facility] Comment on above: Order Comment: 109.1 Performed By: #### L 100.0100 ####[facility] [address] [place], [address] WBC (Bld) [#/Vol] 8.8 10*3/uL Normal 4.4-11.0 [facility] Comment on above: Order Comment: 109.1 Performed By: #### L 100.0100 ####[facility] [address] [place], [address] Eosinophil percentageOrdered By: Renard Burgos on 09-16-2024 Eosinophils/100 WBC (Bld) 0.7 % 0-5 [facility] Erythrocyte distribution wid th ratioOrdered By: Renard Burgos on 09-16-2024 Erythrocyte distribution width (RBC) [Ratio] 13.1 % 11.6-14.6 [facility] Erythrocyte distribution wid th standard deviationOrdered By: Renard Burgos on 09-16-2024 Erythrocyte distribution width (RBC) [Ratio] 43.3 fl 35.1-43.9 [facility] Hematocrit Auto (Bld) [Volum e fraction]Ordered By: Renard Burgos on 09-16-2024 Hematocrit (Bld) [Volume fraction] 46.8 % 40-54 [facility] Hemoglobin measurementOrdere d By: Renard Burgos on 09-16-2024 Hemoglobin (Bld) [Mass/Vol] 15.4 g/dL 13.0-16.5 [facility] Immature granulocytes/100 WB C Auto (Bld)Ordered By: Renard Burgos on 09-16-2024 Immature granulocytes/100 WBC (Bld) 0.200 % 0.0-0.9 [facility] Comment on above: IG% - Immature Granu locytes (promyelocytes, myelocytes and metamyelocytes) > 1% indicates that a LEFT SHIFT is Present. MCV (mean corpuscular volume ) determinationOrdered By: Renard Burgos on 09-16-2024 MCV (RBC) [Entitic vol] 91.4 fL 80-94 [facility] Mean corpuscular hemoglobin (MCH) determinationOrdered By: Renard Burgos on 09-16-2024 MCH (RBC) [Entitic mass] 30.1 pg 27.0-32.0 [facility] Mean corpuscular hemoglobin concentration (MCHC) determinationOrdered By: Renard Burgos on 09-16-2024 MCHC (RBC) [Mass/Vol] 32.9 g/dL 32-36 [facility] Mean platelet volume determi nationOrdered By: Renard Burgos on 09-16-2024 Platelet mean volume (Bld) [Entitic vol] 10.6 fL 6.2-12.0 [facility] Monocyte percentageOrdered B y: Renard Burgso on 09-16-2024 Monocytes/100 WBC (Bld) 8.5 % 0-10 [facility] Neutrophil percentageOrdered By: Renard Burgos on 09-16-2024 Neutrophils/100 WBC (Bld) 62.1 % 47-70 [facility] Nucleated red blood cell per centageOrdered By: Renard Burgos on 09-16-2024 Nucleated RBC/100 WBC (Bld) [Ratio] 0 % 0-5 [facility] Platelet countOrdered By: Garrick Bhatt on 09-16-2024 Platelets (Bld) [#/Vol] 190 10*3/uL 150-450 [facility] RBC Auto (Bld) [#/Vol]Ordere d By: Renard Burgos on 09-16-2024 RBC (Bld) [#/Vol] 5.12 10*6/uL 4.6-6.2 [facility] White blood cell (WBC) count Ordered By: Renard Burgos on 09-16-2024 WBC (Bld) [#/Vol] 8.8 10*3/uL 4.4-11.0 [facility] Anion gap in Serum or Plasma Ordered By: Renard Burgos on 09-11-2024 Anion gap [Moles/Vol] 11 mmol/L 5-15 [facility] Automated blood erythrocyte countOrdered By: Renard Burgos on 09-11-2024 RBC (Bld) [#/Vol] 4.67 10*6/uL Normal 4.6-6.2 [facility] Comment on above: Order Comment: 109-1 Performed By: #### L 100.0500, L500.2500 ####[facility] [address] [place], [address] Automated blood hematocrit ( percentage)Ordered By: Renard Burgos on 09-11-2024 Hematocrit (Bld) [Volume fraction] 42.7 % Normal 40-54 [facility] Comment on above: Order Comment: 109-1 Performed By: #### L 100.0500, L500.2500 ####[facility] [address] [place], [address] BUN/creatinine ratioOrdered By: Renard Burgos on 09-11-2024 Urea nitrogen/Creatinine [Mass ratio] 23.0 mg/mg High 10-20 [facility] Basic Metabolic Profile (BMP )on 09-11-2024 BUN/CRE 23.0 RATIO High 10-20 [facility] Comment on above: Order Comment: 109-1 Performed By: #### L 100.0500, L500.2500 ####[facility] [address], [address] Calcium [Mass/Vol] 8.7 mg/dL Normal 7.6-11.0 [facility] Comment on above: Order Comment: 109-1 Performed By: #### L 100.0500, L500.2500 ####[facility] [address] [place], [address] Chloride [Moles/Vol] 104 mmol/L Normal 98-108 [facility] Comment on above: Order Comment: 109-1 Performed By: #### L 100.0500, L500.2500 ####[facility] [address] [place], [address] CO2 [Moles/Vol] 25.9 mmol/L Normal 21.0-32.0 [facility] Comment on above: Order Comment: 109-1 Performed By: #### L 100.0500, L500.2500 ####[facility] [address] [place], [address] Creatinine [Mass/Vol] 0.58 mg/dL Low 0.70-1.20 [facility] Comment on above: Order Comment: 109-1 Performed By: #### L 100.0500, L500.2500 ####[facility] [address] [place], [address] GAP 11 Normal 5-15 [facility] Comment on above: Order Comment: 109-1 Performed By: #### L 100.0500, L500.2500 ####[facility] [address] [place], [address] GFR/1.73 sq M.predicted among non-blacks MDRD (S/P/Bld) [Vol rate/Area] 107 mL/min/{1.73_m2} Normal >60 [facility] Comment on above: Order Comment: 109-1 Result Comment: mL/m in/1.73m2 CKD-EPI Creatinine Equation (2020) Performed By: #### L 100.0500, L500.2500 ####[facility] [address] [place], [address] Glucose [Mass/Vol] 113 mg/dL High 70-99 [facility] Comment on above: Order Comment: 109-1 Performed By: #### L 100.0500, L500.2500 ####[facility] [address] [place], [address] Potassium [Moles/Vol] 3.8 mmol/L Normal 3.3-5.1 [facility] Comment on above: Order Comment: 109-1 Performed By: #### L 100.0500, L500.2500 ####[facility] [address] [place], [address] Sodium [Moles/Vol] 141 mmol/L Normal 133-145 [facility] Comment on above: Order Comment: 109-1 Performed By: #### L 100.0500, L500.2500 ####[facility] [address] [place], [address] Urea nitrogen [Mass/Vol] 13 mg/dL Normal 4-19 [facility] Comment on above: Order Comment: 109-1 Performed By: #### L 100.0500, L500.2500 ####[facility] [address] [place], [address] CBC-Complete Blood Cnt No Di ffon 09-11-2024 RDW SD 43.7 fl Normal 35.1-43.9 [facility] Comment on above: Order Comment: 109-1 Performed By: #### L 100.0500, L500.2500 ####[facility] [address] [place], [place], [address] Carbon dioxide, total [Moles /volume] in Central venous bloodOrdered By: Renard Burgos on 09-11-2024 CO2 [Moles/Vol] 25.9 mmol/L 21.0-32.0 [facility] Chloride assayOrdered By: Garrick Bhatt on 09-11-2024 Chloride [Moles/Vol] 104 mmol/L 98-108 [facility] Erythrocyte distribution wid th ratioOrdered By: Renard Burgos on 09-11-2024 Erythrocyte distribution width (RBC) [Ratio] 13.2 % Normal 11.6-14.6 [facility] Comment on above: Order Comment: 109-1 Performed By: #### L 100.0500, L500.2500 ####[facility] [address] [place], [place], [address] Erythrocyte distribution wid th standard deviationOrdered By: Renard Burgos on 09-11-2024 Erythrocyte distribution width (RBC) [Ratio] 43.7 fl 35.1-43.9 [facility] Glomerular filtration rate ( GFR) estimation/1.73 sq m using serum, plasma, or whole bOrdered By: Renard Burgos on 09-11-2024 GFR/1.73 sq M.predicted among non-blacks MDRD (S/P/Bld) [Vol rate/Area] 107 mL/min/{1.73_m2} >60 [facility] Comment on above: mL/min/1.73m2 CKD-EP I Creatinine Equation (2020) Hemoglobin measurementOrdere d By: Renard Burgos on 09-11-2024 Hemoglobin (Bld) [Mass/Vol] 14.0 g/dL Normal 13.0-16.5 [facility] Comment on above: Order Comment: 109-1 Performed By: #### L 100.0500, L500.2500 ####[facility] [address] [place], [address] MCV (mean corpuscular volume ) determinationOrdered By: Renard Burgos on 09-11-2024 MCV (RBC) [Entitic vol] 91.4 fL Normal 80-94 [facility] Comment on above: Order Comment: 109-1 Performed By: #### L 100.0500, L500.2500 ####[facility] [address] [place], [address] Mean corpuscular hemoglobin (MCH) determinationOrdered By: Renard Burgos on 09-11-2024 MCH (RBC) [Entitic mass] 30.0 pg Normal 27.0-32.0 [facility] Comment on above: Order Comment: 109-1 Performed By: #### L 100.0500, L500.2500 ####[facility] [address] [place], [address] Mean corpuscular hemoglobin concentration (MCHC) determinationOrdered By: Renard Burgos on 09-11-2024 MCHC (RBC) [Mass/Vol] 32.8 g/dL Normal 32-36 [facility] Comment on above: Order Comment: 109-1 Performed By: #### L 100.0500, L500.2500 ####[facility] [address] [place], [address] Mean platelet volume determi nationOrdered By: Renard Burgos on 09-11-2024 Platelet mean volume (Bld) [Entitic vol] 11.3 fL Normal 6.2-12.0 [facility] Comment on above: Order Comment: 109-1 Performed By: #### L 100.0500, L500.2500 ####[facility] [address] [place], [address] Platelet countOrdered By: Garrick Bhatt on 09-11-2024 Platelets (Bld) [#/Vol] 191 10*3/uL Normal 150-450 [facility] Comment on above: Order Comment: 109-1 Performed By: #### L 100.0500, L500.2500 ####[facility] [facility] [address] [place], [place], [id number] Potassium measurement (mass/ volume)Ordered By: Renard Burgos on 09-11-2024 Potassium (Unsp spec) [Mass/Vol] 3.8 mmol/L 3.3-5.1 [facility] Serum creatinine measurement (mass/volume)Ordered By: Renard Burgos on 09-11-2024 Creatinine [Mass/Vol] 0.58 mg/dL Low 0.70-1.20 [facility] Serum glucose measurement (m ass/volume)Ordered By: Renard Burgos on 09-11-2024 Glucose [Mass/Vol] 113 mg/dL High 70-99 [facility] Serum or plasma calcium gordy urement (mass/volume)Ordered By: Reanrd Burgos on 09-11-2024 Calcium [Mass/Vol] 8.7 mg/dL 7.6-11.0 [facility] Serum or plasma urea nitroge n measurement (mass/volume)Ordered By: Renard Burgos on 09-11-2024 Urea nitrogen [Mass/Vol] 13 mg/dL 4-19 [facility] Sodium levelOrdered By: Lamine Burgos on 09-11-2024 Sodium [Moles/Vol] 141 mmol/L 133-145 [facility] White blood cell (WBC) count Ordered By: Renard Burgos on 09-11-2024 WBC (Bld) [#/Vol] 7.6 10*3/uL Normal 4.4-11.0 [facility] Comment on above: Order Comment: 109-1 Performed By: #### L 100.0500, L500.2500 ####[facility] [address] [place], [place], [address] Absolute lymphocyte countOrd ered By: Renard Burgos on 09-09-2024 Lymphocytes Auto (Unsp spec) [#/Vol] 2.24 10*3/uL 0.83-4.51 [facility] Absolute neutrophil countOrd ered By: Renard Burgos on 09-09-2024 Neutrophils (Bld) [#/Vol] 8.7 10*3/uL High 2.0-7.7 [facility] Automated lymphocyte count a s percentage of total leukocytesOrdered By: Renard Hensleyrustam on 09-09-2024 Lymphocytes/100 WBC Auto (Unsp spec) 19.1 % 19-41 [facility] Basophil percentageOrdered B y: Renard Burgos on 09-09-2024 Basophils/100 WBC (Bld) 0.4 % 0-1 [facility] CBC W/Diff, Automatedon 08-29 Absolute Lymph 2.24 X10 3/uL Normal 0.83-4.51 [facility] Comment on above: Order Comment: 109-1 Performed By: #### L 100.0100 ####[facility] [address] [place], [address] Absolute Neut 8.7 X10 3/uL High 2.0-7.7 [facility] Comment on above: Order Comment: 109-1 Performed By: #### L 100.0100 ####[facility] [address] [place], [address] Basophils/100 WBC (Bld) 0.4 % Normal 0-1 [facility] Comment on above: Order Comment: 109-1 Performed By: #### L 100.0100 ####[facility] [address] [place], [address] Eosinophils/100 WBC (Bld) 0.5 % Normal 0-5 [facility] Comment on above: Order Comment: 109-1 Performed By: #### L 100.0100 ####[facility] [address] [place], [address] Erythrocyte distribution width (RBC) [Ratio] 13.0 % Normal 11.6-14.6 [facility] Comment on above: Order Comment: 109-1 Performed By: #### L 100.0100 ####[facility] [address] [place], [address] Hematocrit (Bld) [Volume fraction] 44.7 % Normal 40-54 [facility] Comment on above: Order Comment: 109-1 Performed By: #### L 100.0100 ####[facility] [address] [place], [address] Hemoglobin (Bld) [Mass/Vol] 14.6 g/dL Normal 13.0-16.5 [facility] Comment on above: Order Comment: 109-1 Performed By: #### L 100.0100 ####[facility] [address] [place], [address] IG% 0.300 Normal 0.0-0.9 [facility] Comment on above: Order Comment: 109-1 Result Comment: IG% - Immature Granulocytes (promyelocytes, myelocytes andmetamyelocytes) > 1% indicates that a LEFT SHIFT is Present. Performed By: #### L 100.0100 ####[facility] [address] [place], [address] Lymphocytes/100 WBC (Bld) 19.1 % Normal 19-41 [facility] Comment on above: Order Comment: 109-1 Performed By: #### L 100.0100 ####[facility] [address] [place], [address] MCH (RBC) [Entitic mass] 30.1 pg Normal 27.0-32.0 [facility] Comment on above: Order Comment: 109-1 Performed By: #### L 100.0100 ####[facility] [address] [place], [address] MCHC (RBC) [Mass/Vol] 32.7 g/dL Normal 32-36 [facility] Comment on above: Order Comment: 109-1 Performed By: #### L 100.0100 ####[facility] [address] [place], [address] MCV (RBC) [Entitic vol] 92.2 fL Normal 80-94 [facility] Comment on above: Order Comment: 109-1 Performed By: #### L 100.0100 ####[facility] [address] [place], [address] Monocytes/100 WBC (Bld) 5.1 % Normal 0-10 [facility] Comment on above: Order Comment: 109-1 Performed By: #### L 100.0100 ####[facility] [address] [place], [address] Neutrophils/100 WBC (Bld) 74.6 % High 47-70 [facility] Comment on above: Order Comment: 109-1 Performed By: #### L 100.0100 ####[facility] [address] [place], [address] Nucleated RBC (Bld) [#/Vol] 0 10*3/uL Normal 0-5 [facility] Comment on above: Order Comment: 109-1 Performed By: #### L 100.0100 ####[facility] [address] [place], [address] Platelet mean volume (Bld) [Entitic vol] 11.6 fL Normal 6.2-12.0 [facility] Comment on above: Order Comment: 109-1 Performed By: #### L 100.0100 ####[facility] [address] [place], [address] Platelets (Bld) [#/Vol] 189 10*3/uL Normal 150-450 [facility] Comment on above: Order Comment: 109-1 Performed By: #### L 100.0100 ####[facility] [address] [place], [address] RBC (Bld) [#/Vol] 4.85 10*6/uL Normal 4.6-6.2 [facility] Comment on above: Order Comment: 109-1 Performed By: #### L 100.0100 ####[facility] [address] [place], [address] RDW SD 43.8 fl Normal 35.1-43.9 [facility] Comment on above: Order Comment: 109-1 Performed By: #### L 100.0100 ####[facility] [address] [place], [address] WBC (Bld) [#/Vol] 11.7 10*3/uL High 4.4-11.0 [facility] Comment on above: Order Comment: 109-1 Performed By: #### L 100.0100 ####[facility] [address] [facility] [place], [address] Eosinophil percentageOrdered By: Renard Burgos on 09-09-2024 Eosinophils/100 WBC (Bld) 0.5 % 0-5 [facility] Erythrocyte distribution wid th ratioOrdered By: Renard Burgos on 09-09-2024 Erythrocyte distribution width (RBC) [Ratio] 13.0 % 11.6-14.6 [facility] Erythrocyte distribution wid th standard deviationOrdered By: Renard Burgos on 09-09-2024 Erythrocyte distribution width (RBC) [Ratio] 43.8 fl 35.1-43.9 [facility] Hematocrit Auto (Bld) [Volum e fraction]Ordered By: Renard Burgos on 09-09-2024 Hematocrit (Bld) [Volume fraction] 44.7 % 40-54 [facility] Hemoglobin measurementOrdere d By: Renard Burgos on 09-09-2024 Hemoglobin (Bld) [Mass/Vol] 14.6 g/dL 13.0-16.5 [facility] Immature granulocytes/100 WB C Auto (Bld)Ordered By: Renard Burgos on 09-09-2024 Immature granulocytes/100 WBC (Bld) 0.300 % 0.0-0.9 [facility] Comment on above: IG% - Immature Granu locytes (promyelocytes, myelocytes and metamyelocytes) > 1% indicates that a LEFT SHIFT is Present. MCV (mean corpuscular volume ) determinationOrdered By: Renard Burgos on 09-09-2024 MCV (RBC) [Entitic vol] 92.2 fL 80-94 [facility] Mean corpuscular hemoglobin (MCH) determinationOrdered By: Renard Burgos on 09-09-2024 MCH (RBC) [Entitic mass] 30.1 pg 27.0-32.0 [facility] Mean corpuscular hemoglobin concentration (MCHC) determinationOrdered By: Renard Burgos on 09-09-2024 MCHC (RBC) [Mass/Vol] 32.7 g/dL 32-36 [facility] Mean platelet volume determi nationOrdered By: Renard Burgos on 09-09-2024 Platelet mean volume (Bld) [Entitic vol] 11.6 fL 6.2-12.0 [facility] Monocyte percentageOrdered B y: Renard Burgos on 09-09-2024 Monocytes/100 WBC (Bld) 5.1 % 0-10 [facility] Neutrophil percentageOrdered By: Renard Burgos on 09-09-2024 Neutrophils/100 WBC (Bld) 74.6 % High 47-70 [facility] Nucleated red blood cell per centageOrdered By: Renard Burgos on 09-09-2024 Nucleated RBC/100 WBC (Bld) [Ratio] 0 % 0-5 [facility] Platelet countOrdered By: Garrick Bhatt on 09-09-2024 Platelets (Bld) [#/Vol] 189 10*3/uL 150-450 [facility] RBC Auto (Bld) [#/Vol]Ordere d By: Renard Burgos on 09-09-2024 RBC (Bld) [#/Vol] 4.85 10*6/uL 4.6-6.2 [facility] White blood cell (WBC) count Ordered By: Renard Burgos on 09-09-2024 WBC (Bld) [#/Vol] 11.7 10*3/uL High 4.4-11.0 [facility] Absolute lymphocyte countOrd ered By: Renard Burgos on 09-02-2024 Lymphocytes Auto (Unsp spec) [#/Vol] 2.07 10*3/uL 0.83-4.51 [facility] Absolute neutrophil countOrd ered By: Renard Burgos on 09-02-2024 Neutrophils (Bld) [#/Vol] 5.8 10*3/uL 2.0-7.7 [facility] Automated lymphocyte count a s percentage of total leukocytesOrdered By: Renard Burgos on 09-02-2024 Lymphocytes/100 WBC Auto (Unsp spec) 24.4 % 19-41 [facility] Basophil percentageOrdered B y: Renard Burgos on 09-02-2024 Basophils/100 WBC (Bld) 0.6 % 0-1 [facility] CBC W/Diff, Automatedon -2024 Absolute Lymph 2.07 X10 3/uL Normal 0.83-4.51 [facility] Comment on above: Order Comment: 109 Performed By: #### L 100.0100 ####[facility] [address] [place], [address] Absolute Neut 5.8 X10 3/uL Normal 2.0-7.7 [facility] Comment on above: Order Comment: 109 Performed By: #### L 100.0100 ####[facility] [address] [place], [address] Basophils/100 WBC (Bld) 0.6 % Normal 0-1 [facility] Comment on above: Order Comment: 109 Performed By: #### L 100.0100 ####[facility] [address] [place], [address] Eosinophils/100 WBC (Bld) 0.7 % Normal 0-5 [facility] Comment on above: Order Comment: 109 Performed By: #### L 100.0100 ####[facility] [address] [place], [address] Erythrocyte distribution width (RBC) [Ratio] 12.8 % Normal 11.6-14.6 [facility] Comment on above: Order Comment: 109 Performed By: #### L 100.0100 ####[facility] [address] [place], [address] Hematocrit (Bld) [Volume fraction] 44.5 % Normal 40-54 [facility] Comment on above: Order Comment: 109 Performed By: #### L 100.0100 ####[facility] [address] [place], [address] Hemoglobin (Bld) [Mass/Vol] 14.9 g/dL Normal 13.0-16.5 [facility] Comment on above: Order Comment: 109 Performed By: #### L 100.0100 ####[facility] [address] [place], [address] IG% 0.400 Normal 0.0-0.9 [facility] Comment on above: Order Comment: 109 Result Comment: IG% - Immature Granulocytes (promyelocytes, myelocytes andmetamyelocytes) > 1% indicates that a LEFT SHIFT is Present. Performed By: #### L 100.0100 ####[facility] [address] [place], [address] Lymphocytes/100 WBC (Bld) 24.4 % Normal 19-41 [facility] Comment on above: Order Comment: 109 Performed By: #### L 100.0100 ####[facility] [address] [place], [address] MCH (RBC) [Entitic mass] 29.9 pg Normal 27.0-32.0 [facility] Comment on above: Order Comment: 109 Performed By: #### L 100.0100 ####[facility] [address] [place], [address] MCHC (RBC) [Mass/Vol] 33.5 g/dL Normal 32-36 [facility] Comment on above: Order Comment: 109 Performed By: #### L 100.0100 ####[facility] [address] [place], [address] MCV (RBC) [Entitic vol] 89.4 fL Normal 80-94 [facility] Comment on above: Order Comment: 109 Performed By: #### L 100.0100 ####[facility] [address] [place], [address] Monocytes/100 WBC (Bld) 5.4 % Normal 0-10 [facility] Comment on above: Order Comment: 109 Performed By: #### L 100.0100 ####[facility] [address] [place], [address] Neutrophils/100 WBC (Bld) 68.5 % Normal 47-70 [facility] Comment on above: Order Comment: 109 Performed By: #### L 100.0100 ####[facility] [address] [place], [address] Nucleated RBC (Bld) [#/Vol] 0 10*3/uL Normal 0-5 [facility] Comment on above: Order Comment: 109 Performed By: #### L 100.0100 ####[facility] [address] [place], [address] Platelet mean volume (Bld) [Entitic vol] 10.7 fL Normal 6.2-12.0 [facility] Comment on above: Order Comment: 109 Performed By: #### L 100.0100 ####[facility] [address] [place], [address] Platelets (Bld) [#/Vol] 189 10*3/uL Normal 150-450 [facility] Comment on above: Order Comment: 109 Performed By: #### L 100.0100 ####[facility] [address] [place], [address] RBC (Bld) [#/Vol] 4.98 10*6/uL Normal 4.6-6.2 [facility] Comment on above: Order Comment: 109 Performed By: #### L 100.0100 ####[facility] [address] [place], [address] RDW SD 41.7 fl Normal 35.1-43.9 [facility] Comment on above: Order Comment: 109 Performed By: #### L 100.0100 ####[facility] [address] [place], [address] WBC (Bld) [#/Vol] 8.5 10*3/uL Normal 4.4-11.0 [facility] Comment on above: Order Comment: 109 Performed By: #### L 100.0100 ####[facility] [address] [place], [place], [id number]) Eosinophil percentageOrdered By: Renard Burgos on 09-02-2024 Eosinophils/100 WBC (Bld) 0.7 % 0-5 [facility] Erythrocyte distribution wid th ratioOrdered By: Renard Burgos on 09-02-2024 Erythrocyte distribution width (RBC) [Ratio] 12.8 % 11.6-14.6 [facility] Erythrocyte distribution wid th standard deviationOrdered By: Renard Burgos on 09-02-2024 Erythrocyte distribution width (RBC) [Ratio] 41.7 fl 35.1-43.9 [facility] Hematocrit Auto (Bld) [Volum e fraction]Ordered By: Renard Burgos on 09-02-2024 Hematocrit (Bld) [Volume fraction] 44.5 % 40-54 [facility] Hemoglobin measurementOrdere d By: Renard Burgos on 09-02-2024 Hemoglobin (Bld) [Mass/Vol] 14.9 g/dL 13.0-16.5 [facility] Immature granulocytes/100 WB C Auto (Bld)Ordered By: Renard Burgos on 09-02-2024 Immature granulocytes/100 WBC (Bld) 0.400 % 0.0-0.9 [facility] Comment on above: IG% - Immature Granu locytes (promyelocytes, myelocytes and metamyelocytes) > 1% indicates that a LEFT SHIFT is Present. MCV (mean corpuscular volume ) determinationOrdered By: Renard Burgos on 09-02-2024 MCV (RBC) [Entitic vol] 89.4 fL 80-94 [facility] Mean corpuscular hemoglobin (MCH) determinationOrdered By: Renard Burgos on 09-02-2024 MCH (RBC) [Entitic mass] 29.9 pg 27.0-32.0 [facility] Mean corpuscular hemoglobin concentration (MCHC) determinationOrdered By: Renard Burgos on 09-02-2024 MCHC (RBC) [Mass/Vol] 33.5 g/dL 32-36 [facility] Mean platelet volume determi nationOrdered By: Renard Burgos on 09-02-2024 Platelet mean volume (Bld) [Entitic vol] 10.7 fL 6.2-12.0 [facility] Monocyte percentageOrdered B y: Renard Burgos on 09-02-2024 Monocytes/100 WBC (Bld) 5.4 % 0-10 [facility] Neutrophil percentageOrdered By: Renard Burgos on 09-02-2024 Neutrophils/100 WBC (Bld) 68.5 % 47-70 [facility] Nucleated red blood cell per centageOrdered By: Renard Burgos on 09-02-2024 Nucleated RBC/100 WBC (Bld) [Ratio] 0 % 0-5 [facility] Platelet countOrdered By: Garrick Bhatt on 09-02-2024 Platelets (Bld) [#/Vol] 189 10*3/uL 150-450 [facility] RBC Auto (Bld) [#/Vol]Ordere d By: Renard Burgos on 09-02-2024 RBC (Bld) [#/Vol] 4.98 10*6/uL 4.6-6.2 [facility] White blood cell (WBC) count Ordered By: Renard Burgos on 09-02-2024 WBC (Bld) [#/Vol] 8.5 10*3/uL 4.4-11.0 [facility] Absolute lymphocyte countOrd ered By: Renard Burgos on 08-26-2024 Lymphocytes Auto (Unsp spec) [#/Vol] 2.17 10*3/uL 0.83-4.51 [facility] Absolute neutrophil countOrd ered By: Renard Burgos on 08-26-2024 Neutrophils (Bld) [#/Vol] 5.7 10*3/uL 2.0-7.7 [facility] Automated lymphocyte count a s percentage of total leukocytesOrdered By: Renard Burgos on 08-26-2024 Lymphocytes/100 WBC Auto (Unsp spec) 25.1 % 19-41 [facility] Basophil percentageOrdered B y: Renard Burgos on 08-26-2024 Basophils/100 WBC (Bld) 0.6 % 0-1 [facility] CBC W/Diff, Automatedon 07-31 Absolute Lymph 2.17 X10 3/uL Normal 0.83-4.51 [facility] Comment on above: Order Comment: 109-1 Performed By: #### L 100.0100 ####[facility] [address] [place], [address] Absolute Neut 5.7 X10 3/uL Normal 2.0-7.7 [facility] Comment on above: Order Comment: 109-1 Performed By: #### L 100.0100 ####[facility] [address] [place], [address] Basophils/100 WBC (Bld) 0.6 % Normal 0-1 [facility] Comment on above: Order Comment: 109-1 Performed By: #### L 100.0100 ####[facility] [address] [place], [address] Eosinophils/100 WBC (Bld) 0.8 % Normal 0-5 [facility] Comment on above: Order Comment: 109-1 Performed By: #### L 100.0100 ####[facility] [address] [place], [address] Erythrocyte distribution width (RBC) [Ratio] 12.7 % Normal 11.6-14.6 [facility] Comment on above: Order Comment: 109-1 Performed By: #### L 100.0100 ####[facility] [address] [place], [address] Hematocrit (Bld) [Volume fraction] 41.8 % Normal 40-54 [facility] Comment on above: Order Comment: 109-1 Performed By: #### L 100.0100 ####[facility] [address] [place], [address] Hemoglobin (Bld) [Mass/Vol] 13.8 g/dL Normal 13.0-16.5 [facility] Comment on above: Order Comment: 109-1 Performed By: #### L 100.0100 ####[facility] [address] [place], [address] IG% 0.200 Normal 0.0-0.9 [facility] Comment on above: Order Comment: 109-1 Result Comment: IG% - Immature Granulocytes (promyelocytes, myelocytes andmetamyelocytes) > 1% indicates that a LEFT SHIFT is Present. Performed By: #### L 100.0100 ####[facility] [address] [place], [address] Lymphocytes/100 WBC (Bld) 25.1 % Normal 19-41 [facility] Comment on above: Order Comment: 109-1 Performed By: #### L 100.0100 ####[facility] [address] [place], [address] MCH (RBC) [Entitic mass] 29.7 pg Normal 27.0-32.0 [facility] Comment on above: Order Comment: 109-1 Performed By: #### L 100.0100 ####[facility] [address] [place], [address] MCHC (RBC) [Mass/Vol] 33.0 g/dL Normal 32-36 [facility] Comment on above: Order Comment: 109-1 Performed By: #### L 100.0100 ####[facility] [address] [place], [address] MCV (RBC) [Entitic vol] 90.1 fL Normal 80-94 [facility] Comment on above: Order Comment: 109-1 Performed By: #### L 100.0100 ####[facility] [address] [place], [address] Monocytes/100 WBC (Bld) 7.4 % Normal 0-10 [facility] Comment on above: Order Comment: 109-1 Performed By: #### L 100.0100 ####[facility] [address] [place], [address] Neutrophils/100 WBC (Bld) 65.9 % Normal 47-70 [facility] Comment on above: Order Comment: 109-1 Performed By: #### L 100.0100 ####[facility] [address] [place], [address] Nucleated RBC (Bld) [#/Vol] 0 10*3/uL Normal 0-5 [facility] Comment on above: Order Comment: 109-1 Performed By: #### L 100.0100 ####[facility] [address] [place], [address] Platelet mean volume (Bld) [Entitic vol] 11.3 fL Normal 6.2-12.0 [facility] Comment on above: Order Comment: 109-1 Performed By: #### L 100.0100 ####[facility] [address] [place], [address] Platelets (Bld) [#/Vol] 196 10*3/uL Normal 150-450 [facility] Comment on above: Order Comment: 109-1 Performed By: #### L 100.0100 ####[facility] [address] [place], [address] RBC (Bld) [#/Vol] 4.64 10*6/uL Normal 4.6-6.2 [facility] Comment on above: Order Comment: 109-1 Performed By: #### L 100.0100 ####[facility] [address] [place], [address] RDW SD 41.3 fl Normal 35.1-43.9 [facility] Comment on above: Order Comment: 109-1 Performed By: #### L 100.0100 ####[facility] [address] [place], [address] WBC (Bld) [#/Vol] 8.6 10*3/uL Normal 4.4-11.0 [facility] Comment on above: Order Comment: 109-1 Performed By: #### L 100.0100 ####[facility] [address] [place], [address] Eosinophil percentageOrdered By: Renard Burgos on 08-26-2024 Eosinophils/100 WBC (Bld) 0.8 % 0-5 [facility] Erythrocyte distribution wid th ratioOrdered By: Renard Burgos on 08-26-2024 Erythrocyte distribution width (RBC) [Ratio] 12.7 % 11.6-14.6 [facility] Erythrocyte distribution wid th standard deviationOrdered By: Renard Burgos on 08-26-2024 Erythrocyte distribution width (RBC) [Ratio] 41.3 fl 35.1-43.9 [facility] Hematocrit Auto (Bld) [Volum e fraction]Ordered By: Renard Burgos on 08-26-2024 Hematocrit (Bld) [Volume fraction] 41.8 % 40-54 [facility] Hemoglobin measurementOrdere d By: Renard Burgos on 08-26-2024 Hemoglobin (Bld) [Mass/Vol] 13.8 g/dL 13.0-16.5 [facility] Immature granulocytes/100 WB C Auto (Bld)Ordered By: Renard Burgos on 08-26-2024 Immature granulocytes/100 WBC (Bld) 0.200 % 0.0-0.9 [facility] Comment on above: IG% - Immature Granu locytes (promyelocytes, myelocytes and metamyelocytes) > 1% indicates that a LEFT SHIFT is Present. MCV (mean corpuscular volume ) determinationOrdered By: Renard Burgos on 08-26-2024 MCV (RBC) [Entitic vol] 90.1 fL 80-94 [facility] Mean corpuscular hemoglobin (MCH) determinationOrdered By: Renard Burgos on 08-26-2024 MCH (RBC) [Entitic mass] 29.7 pg 27.0-32.0 [facility] Mean corpuscular hemoglobin concentration (MCHC) determinationOrdered By: Renard Burgos on 08-26-2024 MCHC (RBC) [Mass/Vol] 33.0 g/dL 32-36 [facility] Mean platelet volume determi nationOrdered By: Renard Burgos on 08-26-2024 Platelet mean volume (Bld) [Entitic vol] 11.3 fL 6.2-12.0 [facility] Monocyte percentageOrdered B y: Renard Burgos on 08-26-2024 Monocytes/100 WBC (Bld) 7.4 % 0-10 [facility] Neutrophil percentageOrdered By: Renard Burgos on 08-26-2024 Neutrophils/100 WBC (Bld) 65.9 % 47-70 [facility] Nucleated red blood cell per centageOrdered By: Renard Burgos on 08-26-2024 Nucleated RBC/100 WBC (Bld) [Ratio] 0 % 0-5 [facility] Platelet countOrdered By: Garrick Bhatt on 08-26-2024 Platelets (Bld) [#/Vol] 196 10*3/uL 150-450 [facility] RBC Auto (Bld) [#/Vol]Ordere d By: Renard Burgos on 08-26-2024 RBC (Bld) [#/Vol] 4.64 10*6/uL 4.6-6.2 [facility] White blood cell (WBC) count Ordered By: Renard Burgos on 08-26-2024 WBC (Bld) [#/Vol] 8.6 10*3/uL 4.4-11.0 [facility] Anion gap in Serum or Plasma Ordered By: Renard Burgos on 08-23-2024 Anion gap [Moles/Vol] 10 mmol/L 5-15 [facility] BUN/creatinine ratioOrdered By: Renard Burgos on 08-23-2024 Urea nitrogen/Creatinine [Mass ratio] 21.4 mg/mg High 10-20 [facility] Bilirubin, totalOrdered By: Renard Burgos on 08-23-2024 Bilirubin [Mass/Vol] 0.35 mg/dL 0.00-1.30 [facility] CBC-Complete Blood Cnt No Di ffon 08-23-2024 Erythrocyte distribution width (RBC) [Ratio] 12.7 % Normal 11.6-14.6 [facility] Comment on above: Order Comment: 109.1 Performed By: #### L 500.4100, L100.0500, L500.4050 ####[facility] [address] [place], [address] Hematocrit (Bld) [Volume fraction] 42.2 % Normal 40-54 [facility] Comment on above: Order Comment: 109.1 Performed By: #### L 500.4100, L100.0500, L500.4050 ####[facility] [address] [place], [address] Hemoglobin (Bld) [Mass/Vol] 14.0 g/dL Normal 13.0-16.5 [facility] Comment on above: Order Comment: 109.1 Performed By: #### L 500.4100, L100.0500, L500.4050 ####[facility] [address] [place], [address] MCH (RBC) [Entitic mass] 30.0 pg Normal 27.0-32.0 [facility] Comment on above: Order Comment: 109.1 Performed By: #### L 500.4100, L100.0500, L500.4050 ####[facility] [address] [place], [address] MCHC (RBC) [Mass/Vol] 33.2 g/dL Normal 32-36 [facility] Comment on above: Order Comment: 109.1 Performed By: #### L 500.4100, L100.0500, L500.4050 ####[facility] [address] [place], [address] MCV (RBC) [Entitic vol] 90.6 fL Normal 80-94 [facility] Comment on above: Order Comment: 109.1 Performed By: #### L 500.4100, L100.0500, L500.4050 ####[facility] [address] [place], [address] Platelet mean volume (Bld) [Entitic vol] 11.3 fL Normal 6.2-12.0 [facility] Comment on above: Order Comment: 109.1 Performed By: #### L 500.4100, L100.0500, L500.4050 ####[facility] [address] [place], [address] Platelets (Bld) [#/Vol] 184 10*3/uL Normal 150-450 [facility] Comment on above: Order Comment: 109.1 Performed By: #### L 500.4100, L100.0500, L500.4050 ####[facility] [address] [place], [address] RBC (Bld) [#/Vol] 4.66 10*6/uL Normal 4.6-6.2 [facility] Comment on above: Order Comment: 109.1 Performed By: #### L 500.4100, L100.0500, L500.4050 ####[facility] [address] [place], [address] RDW SD 41.8 fl Normal 35.1-43.9 [facility] Comment on above: Order Comment: 109.1 Performed By: #### L 500.4100, L100.0500, L500.4050 ####[facility] [address] [place], [address] WBC (Bld) [#/Vol] 8.6 10*3/uL Normal 4.4-11.0 [facility] Comment on above: Order Comment: 109.1 Performed By: #### L 500.4100, L100.0500, L500.4050 ####[facility] [address] [place], [address] Calculated very low density lipoprotein (VLDL) cholesterol measurementOrdered By: Renard Burgos on 08-23-2024 Calculated very low density lipoprotein (VLDL) cholesterol measurement 40 mg/dL 5-40 [facility] Carbon dioxide, total [Moles /volume] in Central venous bloodOrdered By: Renard Burgos on 08-23-2024 CO2 [Moles/Vol] 24.9 mmol/L 21.0-32.0 [facility] Chloride assayOrdered By: Garrick Bhatt on 08-23-2024 Chloride [Moles/Vol] 106 mmol/L 98-108 [facility] Comprehensive Metabolic Prof ilon 08-23-2024 Albumin [Mass/Vol] 3.4 g/dL Normal 3.4-4.8 [facility] Comment on above: Order Comment: 109.1 Performed By: #### L 500.4100, L100.0500, L500.4050 ####[facility] [address] [place], [address] Albumin/Globulin [Mass ratio] 1.4 {ratio} Normal 0.9-2.4 [facility] Comment on above: Order Comment: 109.1 Performed By: #### L 500.4100, L100.0500, L500.4050 ####[facility] [address] [place], [address] ALK PHOS 101 U/L Normal 40-129 [facility] Comment on above: Order Comment: 109.1 Performed By: #### L 500.4100, L100.0500, L500.4050 ####[facility] [address] [place], [address] ALT [Catalytic activity/Vol] 13 U/L Normal <=46 [facility] Comment on above: Order Comment: 109.1 Performed By: #### L 500.4100, L100.0500, L500.4050 ####[facility] [address] [place], [address] AST [Catalytic activity/Vol] 17 U/L Normal <=37 [facility] Comment on above: Order Comment: 109.1 Performed By: #### L 500.4100, L100.0500, L500.4050 ####[facility] [address] [place], [address] Bilirubin [Mass/Vol] 0.35 mg/dL Normal 0.00-1.30 [facility] Comment on above: Order Comment: 109.1 Performed By: #### L 500.4100, L100.0500, L500.4050 ####[facility] [address] [place], [address] BUN/CRE 21.4 RATIO High 10-20 [facility] Comment on above: Order Comment: 109.1 Performed By: #### L 500.4100, L100.0500, L500.4050 ####[facility] [address] [place], [address] Calcium [Mass/Vol] 8.2 mg/dL Normal 7.6-11.0 [facility] Comment on above: Order Comment: 109.1 Performed By: #### L 500.4100, L100.0500, L500.4050 ####[facility] [address] [place], [address] Chloride [Moles/Vol] 106 mmol/L Normal 98-108 [facility] Comment on above: Order Comment: 109.1 Performed By: #### L 500.4100, L100.0500, L500.4050 ####[facility] [address] [place], [address] CO2 [Moles/Vol] 24.9 mmol/L Normal 21.0-32.0 [facility] Comment on above: Order Comment: 109.1 Performed By: #### L 500.4100, L100.0500, L500.4050 ####[facility] [address] [place], [address] Creatinine [Mass/Vol] 0.63 mg/dL Low 0.70-1.20 [facility] Comment on above: Order Comment: 109.1 Performed By: #### L 500.4100, L100.0500, L500.4050 ####[facility] [address] [place], [address] GAP 10 Normal 5-15 [facility] Comment on above: Order Comment: 109.1 Performed By: #### L 500.4100, L100.0500, L500.4050 ####[facility] [address] [place], [address] GFR/1.73 sq M.predicted among non-blacks MDRD (S/P/Bld) [Vol rate/Area] 104 mL/min/{1.73_m2} Normal >60 [facility] Comment on above: Order Comment: 109.1 Result Comment: mL/m in/1.73m2 CKD-EPI Creatinine Equation (2020) Performed By: #### L 500.4100, L100.0500, L500.4050 ####[facility] [address] [place], [address] Globulin (S) [Mass/Vol] 2.3 g/dL Normal 2.2-4.2 [facility] Comment on above: Order Comment: 109.1 Performed By: #### L 500.4100, L100.0500, L500.4050 ####[facility] [address] [place], [address] Glucose [Mass/Vol] 116 mg/dL High 70-99 [facility] Comment on above: Order Comment: 109.1 Performed By: #### L 500.4100, L100.0500, L500.4050 ####[facility] [address] [place], [address] Potassium [Moles/Vol] 3.8 mmol/L Normal 3.3-5.1 [facility] Comment on above: Order Comment: 109.1 Performed By: #### L 500.4100, L100.0500, L500.4050 ####[facility] [address] [place], [address] Sodium [Moles/Vol] 141 mmol/L Normal 133-145 [facility] Comment on above: Order Comment: 109.1 Performed By: #### L 500.4100, L100.0500, L500.4050 ####[facility] [address] [place], [address] T PROT 5.7 g/dL Low 5.9-8.4 [facility] Comment on above: Order Comment: 109.1 Performed By: #### L 500.4100, L100.0500, L500.4050 ####[facility] [address] [place], [address] Urea nitrogen [Mass/Vol] 14 mg/dL Normal 4-19 [facility] Comment on above: Order Comment: 109.1 Performed By: #### L 500.4100, L100.0500, L500.4050 ####[facility] [address] [place], [address] Erythrocyte distribution wid th ratioOrdered By: Renard Burgos on 08-23-2024 Erythrocyte distribution width (RBC) [Ratio] 12.7 % 11.6-14.6 [facility] Erythrocyte distribution wid th standard deviationOrdered By: Renard Burgos on 08-23-2024 Erythrocyte distribution width (RBC) [Ratio] 41.8 fl 35.1-43.9 [facility] Glomerular filtration rate ( GFR) estimation/1.73 sq m using serum, plasma, or whole bOrdered By: Renard Burgos on 08-23-2024 GFR/1.73 sq M.predicted among non-blacks MDRD (S/P/Bld) [Vol rate/Area] 104 mL/min/{1.73_m2} >60 [facility] Comment on above: mL/min/1.73m2 CKD-EP I Creatinine Equation (2020) Hematocrit Auto (Bld) [Volum e fraction]Ordered By: Renard Burgos on 08-23-2024 Hematocrit (Bld) [Volume fraction] 42.2 % 40-54 [facility] Hemoglobin measurementOrdere d By: Renard Burgos on 08-23-2024 Hemoglobin (Bld) [Mass/Vol] 14.0 g/dL 13.0-16.5 [facility] LDL calc ser/plasOrdered By: Renard Burgos on 08-23-2024 Cholesterol in LDL [Mass/Vol] 62 mg/dL [facility] Comment on above: Gkbvirgnfp=426-258 m g/dL & Higher Rzzz=540 mg/dL or greater Laboratory - Chemistry and C hemistry - challengeOrdered By: Renard Burgos on 08-23-2024 AST [Catalytic activity/Vol] 17 U/L <38 [facility] Lipid Profileon 08-23-2024 CHOL:HDL 5.32 Normal [facility] Comment on above: Order Comment: 109.1 Performed By: #### L 500.4100, L100.0500, L500.4050 ####[facility] [address] [place], [place], [address] Cholesterol [Mass/Vol] 125 mg/dL Normal <=200 [facility] Comment on above: Order Comment: 109.1 Result Comment: Chol esterol level, Desirable <200 mg/dLBorderline high cholesterol 200-239 mg/dLHigh cholesterol >=240 mg/dLRecommendations of the NCEP Adult Treatment Panel for thefollowing risk-cutoff thresholds for the [place] Americanpulation. Performed By: #### L 500.4100, L100.0500, L500.4050 ####[facility] [address] [place], [address] Cholesterol in HDL [Mass/Vol] 24 mg/dL Low [facility] Comment on above: Order Comment: 109.1 Result Comment: Lucy onal Cholesterol Education Program (NCEP) guidelines:<40 mg/dL: Low HDL-cholesterol (major risk factor for CHD)>= 60 mg/dL: High HDL-cholesterol (negative risk factor forCHD)HDL-cholesterol is affected by a number of factors, e.g.smoking, exercise, hormones, sex and age. Performed By: #### L 500.4100, L100.0500, L500.4050 ####[facility] [address] [place], [address] Cholesterol in LDL [Mass/Vol] 62 mg/dL Normal [facility] Comment on above: Order Comment: 109.1 Result Comment: Bord bxlxbg=185-276 mg/dL Higher Uuzp=206 mg/dL or greater Performed By: #### L 500.4100, L100.0500, L500.4050 ####[facility] [address] [place], [address] Cholesterol in VLDL [Mass/Vol] 40 mg/dL Normal 5-40 [facility] Comment on above: Order Comment: 109.1 Performed By: #### L 500.4100, L100.0500, L500.4050 ####[facility] [address] [place], [address] Triglyceride [Mass/Vol] 198 mg/dL Normal [facility] Comment on above: Order Comment: 109.1 Result Comment: The drugs N-Acetylcysteine and Metamizole may falselydepress this assay.Normal range: <150 mg/dLBorderline High: 150-199 mg/dLHigh: 200-499 mg/dLVery High: >500 mg/dL Performed By: #### L 500.4100, L100.0500, L500.4050 ####[facility] [address] [place], [address] MCV (mean corpuscular volume ) determinationOrdered By: Renard Burgos on 08-23-2024 MCV (RBC) [Entitic vol] 90.6 fL 80-94 [facility] Mean corpuscular hemoglobin (MCH) determinationOrdered By: Renard Burgos on 08-23-2024 MCH (RBC) [Entitic mass] 30.0 pg 27.0-32.0 [facility] Mean corpuscular hemoglobin concentration (MCHC) determinationOrdered By: Renard Burgos on 08-23-2024 MCHC (RBC) [Mass/Vol] 33.2 g/dL 32-36 [facility] Mean platelet volume determi nationOrdered By: Renard Burgos on 08-23-2024 Platelet mean volume (Bld) [Entitic vol] 11.3 fL 6.2-12.0 [facility] Platelet countOrdered By: Garrick Bhatt on 08-23-2024 Platelets (Bld) [#/Vol] 184 10*3/uL 150-450 [facility] Potassium measurement (mass/ volume)Ordered By: Renard Burgos on 08-23-2024 Potassium (Unsp spec) [Mass/Vol] 3.8 mmol/L 3.3-5.1 [facility] RBC Auto (Bld) [#/Vol]Ordere d By: Renard Burgos on 08-23-2024 RBC (Bld) [#/Vol] 4.66 10*6/uL 4.6-6.2 [facility] Screening total cholesterol/ high density lipoprotein (HDL) cholesterol ratioOrdered By: Renard Burgos on 08-23-2024 Cholesterol.total/Cecilia sterol in HDL [Mass ratio] 5.32 {ratio} [facility] Serum creatinine measurement (mass/volume)Ordered By: Renard Burgos on 08-23-2024 Creatinine [Mass/Vol] 0.63 mg/dL Low 0.70-1.20 [facility] Serum globulin measurementOr dered By: Renard Burgos on 08-23-2024 Globulin (S) [Mass/Vol] 2.3 g/dL 2.2-4.2 [facility] Serum glucose measurement (m ass/volume)Ordered By: Renard Burgos on 08-23-2024 Glucose [Mass/Vol] 116 mg/dL High 70-99 [facility] Serum or plasma alanine kay otransferase (ALT) measurementOrdered By: Renard Burgos on 08-23-2024 ALT [Catalytic activity/Vol] 13 U/L <47 [facility] Serum or plasma albumin gordy urement (mass/volume)Ordered By: Renard Burgos on 08-23-2024 Albumin [Mass/Vol] 3.4 g/dL 3.4-4.8 [facility] Serum or plasma albumin/glob ulin mass ratioOrdered By: Renard Burgos on 08-23-2024 Albumin/Globulin [Mass ratio] 1.4 {ratio} 0.9-2.4 [facility] Serum or plasma alkaline trace sphatase measurementOrdered By: Renard Burgos on 08-23-2024 ALP [Catalytic activity/Vol] 101 U/L 40-129 [facility] Serum or plasma calcium gordy urement (mass/volume)Ordered By: Renard Burgos on 08-23-2024 Calcium [Mass/Vol] 8.2 mg/dL 7.6-11.0 [facility] Serum or plasma cholesterol in HDL measurement (mass/volume)Ordered By: Renard Burgos on 08-23-2024 Cholesterol in HDL [Mass/Vol] 24 mg/dL Low >40 [facility] Comment on above: National Cholesterol Education Program (NCEP) guidelines:<40 mg/dL: Low HDL-cholesterol (major risk factor for CHD)>= 60 mg/dL: High HDL-cholesterol (negative risk factor for CHD)HDL-cholesterol is affected by a number of factors, e.g. smoking, exercise, hormones, sex and age. Serum or plasma cholesterol measurement (mass/volume)Ordered By: Renard Burgos on 08-23-2024 Cholesterol [Mass/Vol] 125 mg/dL <201 [facility] Comment on above: Cholesterol level, D esirable <200 mg/dLBorderline high cholesterol 200-239 mg/dLHigh cholesterol >=240 mg/dLRecommendations of the NCEP Adult Treatment Panel for the following risk-cutoff thresholds for the [place] population. Serum or plasma urea nitroge n measurement (mass/volume)Ordered By: Renard Burgos on 08-23-2024 Urea nitrogen [Mass/Vol] 14 mg/dL 4-19 [facility] Sodium levelOrdered By: Lamine Burgos on 08-23-2024 Sodium [Moles/Vol] 141 mmol/L 133-145 [facility] Total proteinOrdered By: Lyubov Burgos on 08-23-2024 Protein [Mass/Vol] 5.7 g/dL Low 5.9-8.4 [facility] Triglycerides measurementOrd ered By: Renard Burgos on 08-23-2024 Triglyceride [Mass/Vol] 198 mg/dL <199 [facility] Comment on above: The drugs N-Acetylcy steine and Metamizole may falsely depress this assay. Normal range: <150 mg/dLBorderline High: 150-199 mg/dLHigh: 200-499 mg/dLVery High: >500 mg/dL White blood cell (WBC) count Ordered By: Renard Burgos on 08-23-2024 WBC (Bld) [#/Vol] 8.6 10*3/uL 4.4-11.0 [facility] Absolute lymphocyte countOrd ered By: Renard Burgos on 08-19-2024 Lymphocytes Auto (Unsp spec) [#/Vol] 1.97 10*3/uL 0.83-4.51 [facility] Absolute neutrophil countOrd ered By: Renard Burgos on 08-19-2024 Neutrophils (Bld) [#/Vol] 5.0 10*3/uL 2.0-7.7 [facility] Automated lymphocyte count a s percentage of total leukocytesOrdered By: Renard Burgos on 08-19-2024 Lymphocytes/100 WBC Auto (Unsp spec) 25.4 % 19-41 [facility] Basophil percentageOrdered B y: Renard Burgos on 08-19-2024 Basophils/100 WBC (Bld) 0.5 % 0-1 [facility] CBC W/Diff, Automatedon 07-31 Absolute Lymph 1.97 X10 3/uL Normal 0.83-4.51 [facility] Comment on above: Order Comment: 109 Performed By: #### L 100.0100 ####[facility] [address] [place], [address] Absolute Neut 5.0 X10 3/uL Normal 2.0-7.7 [facility] Comment on above: Order Comment: 109 Performed By: #### L 100.0100 ####[facility] [address] [place], [address] Basophils/100 WBC (Bld) 0.5 % Normal 0-1 [facility] Comment on above: Order Comment: 109 Performed By: #### L 100.0100 ####[facility] [address] [place], [address] Eosinophils/100 WBC (Bld) 1.0 % Normal 0-5 [facility] Comment on above: Order Comment: 109 Performed By: #### L 100.0100 ####[facility] [address] [place], [address] Erythrocyte distribution width (RBC) [Ratio] 12.7 % Normal 11.6-14.6 [facility] Comment on above: Order Comment: 109 Performed By: #### L 100.0100 ####[facility] [address] [place], [address] Hematocrit (Bld) [Volume fraction] 41.0 % Normal 40-54 [facility] Comment on above: Order Comment: 109 Performed By: #### L 100.0100 ####[facility] [address] [place], [address] Hemoglobin (Bld) [Mass/Vol] 13.6 g/dL Normal 13.0-16.5 [facility] Comment on above: Order Comment: 109 Performed By: #### L 100.0100 ####[facility] [address] [place], [address] IG% 0.400 Normal 0.0-0.9 [facility] Comment on above: Order Comment: 109 Result Comment: IG% - Immature Granulocytes (promyelocytes, myelocytes andmetamyelocytes) > 1% indicates that a LEFT SHIFT is Present. Performed By: #### L 100.0100 ####[facility] [address] [place], [address] Lymphocytes/100 WBC (Bld) 25.4 % Normal 19-41 [facility] Comment on above: Order Comment: 109 Performed By: #### L 100.0100 ####[facility] [address] [place], [address] MCH (RBC) [Entitic mass] 30.2 pg Normal 27.0-32.0 [facility] Comment on above: Order Comment: 109 Performed By: #### L 100.0100 ####[facility] [address] [place], [address] MCHC (RBC) [Mass/Vol] 33.2 g/dL Normal 32-36 [facility] Comment on above: Order Comment: 109 Performed By: #### L 100.0100 ####[facility] [address] [place], [address] MCV (RBC) [Entitic vol] 91.1 fL Normal 80-94 [facility] Comment on above: Order Comment: 109 Performed By: #### L 100.0100 ####[facility] [address] [place], [address] Monocytes/100 WBC (Bld) 8.2 % Normal 0-10 [facility] Comment on above: Order Comment: 109 Performed By: #### L 100.0100 ####[facility] [address] [place], [address] Neutrophils/100 WBC (Bld) 64.5 % Normal 47-70 [facility] Comment on above: Order Comment: 109 Performed By: #### L 100.0100 ####[facility] [address] [place], [address] Nucleated RBC (Bld) [#/Vol] 0 10*3/uL Normal 0-5 [facility] Comment on above: Order Comment: 109 Performed By: #### L 100.0100 ####[facility] [address] [place], [address] Platelet mean volume (Bld) [Entitic vol] 11.1 fL Normal 6.2-12.0 [facility] Comment on above: Order Comment: 109 Performed By: #### L 100.0100 ####[facility] [address] [place], [address] Platelets (Bld) [#/Vol] 207 10*3/uL Normal 150-450 [facility] Comment on above: Order Comment: 109 Performed By: #### L 100.0100 ####[facility] [address] [place], [address] RBC (Bld) [#/Vol] 4.50 10*6/uL Low 4.6-6.2 [facility] Comment on above: Order Comment: 109 Performed By: #### L 100.0100 ####[facility] [address] [place], [address] RDW SD 42.0 fl Normal 35.1-43.9 [facility] Comment on above: Order Comment: 109 Performed By: #### L 100.0100 ####[facility] [address] [place], [address] WBC (Bld) [#/Vol] 7.8 10*3/uL Normal 4.4-11.0 [facility] Comment on above: Order Comment: 109 Performed By: #### L 100.0100 ####[facility] [address] [place], [address] Eosinophil percentageOrdered By: Renard Burgos on 08-19-2024 Eosinophils/100 WBC (Bld) 1.0 % 0-5 [facility] Erythrocyte distribution wid th ratioOrdered By: Renard Burgos on 08-19-2024 Erythrocyte distribution width (RBC) [Ratio] 12.7 % 11.6-14.6 [facility] Erythrocyte distribution wid th standard deviationOrdered By: Renard Burgos on 08-19-2024 Erythrocyte distribution width (RBC) [Ratio] 42.0 fl 35.1-43.9 [facility] Hematocrit Auto (Bld) [Volum e fraction]Ordered By: Renard Burgos on 08-19-2024 Hematocrit (Bld) [Volume fraction] 41.0 % 40-54 [facility] Hemoglobin measurementOrdere d By: Renard Burgos on 08-19-2024 Hemoglobin (Bld) [Mass/Vol] 13.6 g/dL 13.0-16.5 [facility] Immature granulocytes/100 WB C Auto (Bld)Ordered By: Renard Burgos on 08-19-2024 Immature granulocytes/100 WBC (Bld) 0.400 % 0.0-0.9 [facility] Comment on above: IG% - Immature Granu locytes (promyelocytes, myelocytes and metamyelocytes) > 1% indicates that a LEFT SHIFT is Present. MCV (mean corpuscular volume ) determinationOrdered By: Renard Burgos on 08-19-2024 MCV (RBC) [Entitic vol] 91.1 fL 80-94 [facility] Mean corpuscular hemoglobin (MCH) determinationOrdered By: Renard Burgos on 08-19-2024 MCH (RBC) [Entitic mass] 30.2 pg 27.0-32.0 [facility] Mean corpuscular hemoglobin concentration (MCHC) determinationOrdered By: Renard Burgos on 08-19-2024 MCHC (RBC) [Mass/Vol] 33.2 g/dL 32-36 [facility] Mean platelet volume determi nationOrdered By: Renard Burgos on 08-19-2024 Platelet mean volume (Bld) [Entitic vol] 11.1 fL 6.2-12.0 [facility] Monocyte percentageOrdered B y: Renard Burgos on 08-19-2024 Monocytes/100 WBC (Bld) 8.2 % 0-10 [facility] Neutrophil percentageOrdered By: Renard Burgos on 08-19-2024 Neutrophils/100 WBC (Bld) 64.5 % 47-70 [facility] Nucleated red blood cell per centageOrdered By: Renard Burgos on 08-19-2024 Nucleated RBC/100 WBC (Bld) [Ratio] 0 % 0-5 [facility] Platelet countOrdered By: Garrick Bhatt on 08-19-2024 Platelets (Bld) [#/Vol] 207 10*3/uL 150-450 [facility] RBC Auto (Bld) [#/Vol]Ordere d By: Renard Burgos on 08-19-2024 RBC (Bld) [#/Vol] 4.50 10*6/uL Low 4.6-6.2 [facility] White blood cell (WBC) count Ordered By: Renard Burgos on 08-19-2024 WBC (Bld) [#/Vol] 7.8 10*3/uL 4.4-11.0 [facility] Absolute lymphocyte countOrd ered By: Renard Burgso on 08-12-2024 Lymphocytes Auto (Unsp spec) [#/Vol] 2.09 10*3/uL 0.83-4.51 [facility] Absolute neutrophil countOrd ered By: Renard Burgos on 08-12-2024 Neutrophils (Bld) [#/Vol] 5.0 10*3/uL 2.0-7.7 [facility] Automated lymphocyte count a s percentage of total leukocytesOrdered By: Renard Burgos on 08-12-2024 Lymphocytes/100 WBC Auto (Unsp spec) 27.0 % 19-41 [facility] Basophil percentageOrdered B y: Renard Burgos on 08-12-2024 Basophils/100 WBC (Bld) 0.5 % 0-1 [facility] CBC W/Diff, Automatedon 07-30 Absolute Lymph 2.09 X10 3/uL Normal 0.83-4.51 [facility] Comment on above: Order Comment: 109.1 Performed By: #### L 100.0100 ####[facility] [address] [place], [place], [address] Absolute Neut 5.0 X10 3/uL Normal 2.0-7.7 [facility] Comment on above: Order Comment: 109.1 Performed By: #### L 100.0100 ####[facility] [address] [place], [address] Basophils/100 WBC (Bld) 0.5 % Normal 0-1 [facility] [facility] Comment on above: Order Comment: 109.1 Performed By: #### L 100.0100 ####[facility] [address] [place], [address] Eosinophils/100 WBC (Bld) 0.9 % Normal 0-5 [facility] Comment on above: Order Comment: 109.1 Performed By: #### L 100.0100 ####[facility] [address] [place], [address] Erythrocyte distribution width (RBC) [Ratio] 12.7 % Normal 11.6-14.6 [facility] Comment on above: Order Comment: 109.1 Performed By: #### L 100.0100 ####[facility] [address] [place], [address] Hematocrit (Bld) [Volume fraction] 41.9 % Normal 40-54 [facility] Comment on above: Order Comment: 109.1 Performed By: #### L 100.0100 ####[facility] [address] [place], [address] Hemoglobin (Bld) [Mass/Vol] 14.1 g/dL Normal 13.0-16.5 [facility] Comment on above: Order Comment: 109.1 Performed By: #### L 100.0100 ####[facility] [address] [place], [address] IG% 0.300 Normal 0.0-0.9 [facility] Comment on above: Order Comment: 109.1 Result Comment: IG% - Immature Granulocytes (promyelocytes, myelocytes andmetamyelocytes) > 1% indicates that a LEFT SHIFT is Present. Performed By: #### L 100.0100 ####[facility] [address] [place], [address] Lymphocytes/100 WBC (Bld) 27.0 % Normal 19-41 [facility] Comment on above: Order Comment: 109.1 Performed By: #### L 100.0100 ####[facility] [address] [place], [address] MCH (RBC) [Entitic mass] 30.3 pg Normal 27.0-32.0 [facility] Comment on above: Order Comment: 109.1 Performed By: #### L 100.0100 ####[facility] [address] [place], [address] MCHC (RBC) [Mass/Vol] 33.7 g/dL Normal 32-36 [facility] Comment on above: Order Comment: 109.1 Performed By: #### L 100.0100 ####[facility] [address] [place], [address] MCV (RBC) [Entitic vol] 90.1 fL Normal 80-94 [facility] Comment on above: Order Comment: 109.1 Performed By: #### L 100.0100 ####[facility] [address] [place], [address] Monocytes/100 WBC (Bld) 7.1 % Normal 0-10 [facility] Comment on above: Order Comment: 109.1 Performed By: #### L 100.0100 ####[facility] [address] [place], [address] Neutrophils/100 WBC (Bld) 64.2 % Normal 47-70 [facility] Comment on above: Order Comment: 109.1 Performed By: #### L 100.0100 ####[facility] [address] [place], [address] Nucleated RBC (Bld) [#/Vol] 0 10*3/uL Normal 0-5 [facility] Comment on above: Order Comment: 109.1 Performed By: #### L 100.0100 ####[facility] [address] [place], [address] Platelet mean volume (Bld) [Entitic vol] 11.2 fL Normal 6.2-12.0 [facility] Comment on above: Order Comment: 109.1 Performed By: #### L 100.0100 ####[facility] [address] [place], [address] Platelets (Bld) [#/Vol] 188 10*3/uL Normal 150-450 [facility] Comment on above: Order Comment: 109.1 Performed By: #### L 100.0100 ####[facility] [address] [place], [address] RBC (Bld) [#/Vol] 4.65 10*6/uL Normal 4.6-6.2 [facility] Comment on above: Order Comment: 109.1 Performed By: #### L 100.0100 ####[facility] [address] [place], [address] RDW SD 41.6 fl Normal 35.1-43.9 [facility] Comment on above: Order Comment: 109.1 Performed By: #### L 100.0100 ####[facility] [address] [place], [address] WBC (Bld) [#/Vol] 7.8 10*3/uL Normal 4.4-11.0 [facility] Comment on above: Order Comment: 109.1 Performed By: #### L 100.0100 ####[facility] [address] [place], [address] Eosinophil percentageOrdered By: Renard Burgos on 08-12-2024 Eosinophils/100 WBC (Bld) 0.9 % 0-5 [facility] Erythrocyte distribution wid th (RBC) [Ratio]Ordered By: Renard Burgos on 08-12-2024 Erythrocyte distribution width (RBC) [Entitic vol] 41.6 fL 35.1-43.9 [facility] Erythrocyte distribution wid th ratioOrdered By: Renard Burgos on 08-12-2024 Erythrocyte distribution width (RBC) [Ratio] 12.7 % 11.6-14.6 [facility] Erythrocyte distribution wid th standard deviationOrdered By: Renard Burgos on 08-12-2024 Erythrocyte distribution width (RBC) [Ratio] 41.6 fl 35.1-43.9 [facility] Hematocrit Auto (Bld) [Volum e fraction]Ordered By: Renard Burgos on 08-12-2024 Hematocrit (Bld) [Volume fraction] 41.9 % 40-54 [facility] Hemoglobin measurementOrdere d By: Renard Burgos on 08-12-2024 Hemoglobin (Bld) [Mass/Vol] 14.1 g/dL 13.0-16.5 [facility] Immature granulocytes/100 WB C Auto (Bld)Ordered By: Renard Burgos on 08-12-2024 Immature granulocytes/100 WBC (Bld) 0.300 % 0.0-0.9 [facility] Comment on above: IG% - Immature Granu locytes (promyelocytes, myelocytes and metamyelocytes) > 1% indicates that a LEFT SHIFT is Present. Lymphocytes Auto (Unsp spec) [#/Vol]Ordered By: Renard Burgos on 08-12-2024 Lymphocytes (Bld) [#/Vol] 2.09 10*3/uL 0.83-4.51 [facility] Lymphocytes/100 WBC Auto (Un sp spec)Ordered By: Renard Burgos on 08-12-2024 Lymphocytes/100 WBC (Bld) 27.0 % 19-41 [facility] MCV (mean corpuscular volume ) determinationOrdered By: Renard Burgos on 08-12-2024 MCV (RBC) [Entitic vol] 90.1 fL 80-94 [facility] Mean corpuscular hemoglobin (MCH) determinationOrdered By: Renard Burgos on 08-12-2024 MCH (RBC) [Entitic mass] 30.3 pg 27.0-32.0 [facility] Mean corpuscular hemoglobin concentration (MCHC) determinationOrdered By: Renard Burgos on 08-12-2024 MCHC (RBC) [Mass/Vol] 33.7 g/dL 32-36 [facility] Mean platelet volume determi nationOrdered By: Renard Burgos on 08-12-2024 Platelet mean volume (Bld) [Entitic vol] 11.2 fL 6.2-12.0 [facility] Monocyte percentageOrdered B y: Renard Burgos on 08-12-2024 Monocytes/100 WBC (Bld) 7.1 % 0-10 [facility] Neutrophil percentageOrdered By: Renard Burgos on 08-12-2024 Neutrophils/100 WBC (Bld) 64.2 % 47-70 [facility] Nucleated red blood cell per centageOrdered By: Renard Burgos on 08-12-2024 Nucleated RBC/100 WBC (Bld) [Ratio] 0 % 0-5 [facility] Platelet countOrdered By: Garrick Bhatt on 08-12-2024 Platelets (Bld) [#/Vol] 188 10*3/uL 150-450 [facility] RBC Auto (Bld) [#/Vol]Ordere d By: Renard Burgos on 08-12-2024 RBC (Bld) [#/Vol] 4.65 10*6/uL 4.6-6.2 [facility] White blood cell (WBC) count Ordered By: Renard Burgos on 08-12-2024 WBC (Bld) [#/Vol] 7.8 10*3/uL 4.4-11.0 [facility] Absolute lymphocyte countOrd ered By: Renard Burgos on 08-05-2024 Lymphocytes Auto (Unsp spec) [#/Vol] 2.31 10*3/uL 0.83-4.51 [facility] Absolute neutrophil countOrd ered By: Renard Burgos on 08-05-2024 Neutrophils (Bld) [#/Vol] 5.4 10*3/uL 2.0-7.7 [facility] Automated lymphocyte count a s percentage of total leukocytesOrdered By: Renard Burgos on 08-05-2024 Lymphocytes/100 WBC Auto (Unsp spec) 26.9 % 19-41 [facility] Basophil percentageOrdered B y: Renard Burgos on 08-05-2024 Basophils/100 WBC (Bld) 0.6 % 0-1 [facility] CBC W/Diff, Automatedon - Absolute Lymph 2.31 X10 3/uL Normal 0.83-4.51 [facility] Comment on above: Order Comment: 109.1 Performed By: #### L 100.0100 ####[facility] [address] [place], [address] Absolute Neut 5.4 X10 3/uL Normal 2.0-7.7 [facility] Comment on above: Order Comment: 109.1 Performed By: #### L 100.0100 ####[facility] [address] [place], [address] Basophils/100 WBC (Bld) 0.6 % Normal 0-1 [facility] Comment on above: Order Comment: 109.1 Performed By: #### L 100.0100 ####[facility] [address] [place], [address] Eosinophils/100 WBC (Bld) 0.8 % Normal 0-5 [facility] Comment on above: Order Comment: 109.1 Performed By: #### L 100.0100 ####[facility] [address] [place], [address] Erythrocyte distribution width (RBC) [Ratio] 12.7 % Normal 11.6-14.6 [facility] Comment on above: Order Comment: 109.1 Performed By: #### L 100.0100 ####[facility] [address] [place], [address] Hematocrit (Bld) [Volume fraction] 41.6 % Normal 40-54 [facility] Comment on above: Order Comment: 109.1 Performed By: #### L 100.0100 ####[facility] [address] [place], [address] Hemoglobin (Bld) [Mass/Vol] 13.7 g/dL Normal 13.0-16.5 [facility] Comment on above: Order Comment: 109.1 Performed By: #### L 100.0100 ####[facility] [address] [place], [address] IG% 0.300 Normal 0.0-0.9 [facility] Comment on above: Order Comment: 109.1 Result Comment: IG% - Immature Granulocytes (promyelocytes, myelocytes andmetamyelocytes) > 1% indicates that a LEFT SHIFT is Present. Performed By: #### L 100.0100 ####[facility] [address] [place], [address] Lymphocytes/100 WBC (Bld) 26.9 % Normal 19-41 [facility] Comment on above: Order Comment: 109.1 Performed By: #### L 100.0100 ####[facility] [address] [place], [address] MCH (RBC) [Entitic mass] 30.1 pg Normal 27.0-32.0 [facility] Comment on above: Order Comment: 109.1 Performed By: #### L 100.0100 ####[facility] [address] [place], [address] MCHC (RBC) [Mass/Vol] 32.9 g/dL Normal 32-36 [facility] Comment on above: Order Comment: 109.1 Performed By: #### L 100.0100 ####[facility] [address] [place], [address] MCV (RBC) [Entitic vol] 91.4 fL Normal 80-94 [facility] Comment on above: Order Comment: 109.1 Performed By: #### L 100.0100 ####[facility] [address] [place], [address] Monocytes/100 WBC (Bld) 8.3 % Normal 0-10 [facility] Comment on above: Order Comment: 109.1 Performed By: #### L 100.0100 ####[facility] [address] [place], [address] Neutrophils/100 WBC (Bld) 63.1 % Normal 47-70 [facility] Comment on above: Order Comment: 109.1 Performed By: #### L 100.0100 ####[facility] [address] [place], [address] Nucleated RBC (Bld) [#/Vol] 0 10*3/uL Normal 0-5 [facility] Comment on above: Order Comment: 109.1 Performed By: #### L 100.0100 ####[facility] [address] [place], [address] Platelet mean volume (Bld) [Entitic vol] 11.1 fL Normal 6.2-12.0 [facility] Comment on above: Order Comment: 109.1 Performed By: #### L 100.0100 ####[facility] [address] [place], [address] Platelets (Bld) [#/Vol] 199 10*3/uL Normal 150-450 [facility] Comment on above: Order Comment: 109.1 Performed By: #### L 100.0100 ####[facility] [address] [place], [address] RBC (Bld) [#/Vol] 4.55 10*6/uL Low 4.6-6.2 [facility] Comment on above: Order Comment: 109.1 Performed By: #### L 100.0100 ####[facility] [address] [place], [address] RDW SD 42.5 fl Normal 35.1-43.9 [facility] Comment on above: Order Comment: 109.1 Performed By: #### L 100.0100 ####[facility] [address] [place], [address] WBC (Bld) [#/Vol] 8.6 10*3/uL Normal 4.4-11.0 [facility] Comment on above: Order Comment: 109.1 Performed By: #### L 100.0100 ####[facility] [address] [place], [address] Eosinophil percentageOrdered By: Renard Burgos on 08-05-2024 Eosinophils/100 WBC (Bld) 0.8 % 0-5 [facility] Erythrocyte distribution wid th (RBC) [Ratio]Ordered By: Renard Burgos on 08-05-2024 Erythrocyte distribution width (RBC) [Entitic vol] 42.5 fL 35.1-43.9 [facility] Erythrocyte distribution wid th ratioOrdered By: Renard Burgos on 08-05-2024 Erythrocyte distribution width (RBC) [Ratio] 12.7 % 11.6-14.6 [facility] Erythrocyte distribution wid th standard deviationOrdered By: Renard Burgos on 08-05-2024 Erythrocyte distribution width (RBC) [Ratio] 42.5 fl 35.1-43.9 [facility] Hematocrit Auto (Bld) [Volum e fraction]Ordered By: Renard Burgos on 08-05-2024 Hematocrit (Bld) [Volume fraction] 41.6 % 40-54 [facility] Hemoglobin measurementOrdere d By: Renard Burgos on 08-05-2024 Hemoglobin (Bld) [Mass/Vol] 13.7 g/dL 13.0-16.5 [facility] Immature granulocytes/100 WB C Auto (Bld)Ordered By: Renard Burgos on 08-05-2024 Immature granulocytes/100 WBC (Bld) 0.300 % 0.0-0.9 [facility] Comment on above: IG% - Immature Granu locytes (promyelocytes, myelocytes and metamyelocytes) > 1% indicates that a LEFT SHIFT is Present. Lymphocytes Auto (Unsp spec) [#/Vol]Ordered By: Renard Burgos on 08-05-2024 Lymphocytes (Bld) [#/Vol] 2.31 10*3/uL 0.83-4.51 [facility] Lymphocytes/100 WBC Auto (Un sp spec)Ordered By: Renard Burgos on 08-05-2024 Lymphocytes/100 WBC (Bld) 26.9 % 19-41 [facility] MCV (mean corpuscular volume ) determinationOrdered By: Renard Burgos on 08-05-2024 MCV (RBC) [Entitic vol] 91.4 fL 80-94 [facility] Mean corpuscular hemoglobin (MCH) determinationOrdered By: Renard Burgos on 08-05-2024 MCH (RBC) [Entitic mass] 30.1 pg 27.0-32.0 [facility] Mean corpuscular hemoglobin concentration (MCHC) determinationOrdered By: Renard Burgos on 08-05-2024 MCHC (RBC) [Mass/Vol] 32.9 g/dL 32-36 [facility] Mean platelet volume determi nationOrdered By: Renard Burgos on 08-05-2024 Platelet mean volume (Bld) [Entitic vol] 11.1 fL 6.2-12.0 [facility] Monocyte percentageOrdered B y: Renard Burgos on 08-05-2024 Monocytes/100 WBC (Bld) 8.3 % 0-10 [facility] Neutrophil percentageOrdered By: Renard Burgos on 08-05-2024 Neutrophils/100 WBC (Bld) 63.1 % 47-70 [facility] Nucleated red blood cell per centageOrdered By: Renard Burgos on 08-05-2024 Nucleated RBC/100 WBC (Bld) [Ratio] 0 % 0-5 [facility] Platelet countOrdered By: Garrick Bhatt on 08-05-2024 Platelets (Bld) [#/Vol] 199 10*3/uL 150-450 [facility] RBC Auto (Bld) [#/Vol]Ordere d By: Renard Burgos on 08-05-2024 RBC (Bld) [#/Vol] 4.55 10*6/uL Low 4.6-6.2 [facility] White blood cell (WBC) count Ordered By: Renard Burgos on 08-05-2024 WBC (Bld) [#/Vol] 8.6 10*3/uL 4.4-11.0 [facility] Absolute lymphocyte countOrd ered By: Renard Burgos on 07-29-2024 Lymphocytes Auto (Unsp spec) [#/Vol] 1.93 10*3/uL 0.83-4.51 [facility] Absolute neutrophil countOrd ered By: Renard Burgos on 07-29-2024 Neutrophils (Bld) [#/Vol] 6.8 10*3/uL 2.0-7.7 [facility] Automated lymphocyte count a s percentage of total leukocytesOrdered By: Renard Burgos on 07-29-2024 Lymphocytes/100 WBC Auto (Unsp spec) 20.2 % 19-41 [facility] Basophil percentageOrdered B y: Renard Burgos on 07-29-2024 Basophils/100 WBC (Bld) 0.5 % 0-1 [facility] CBC W/Diff, Automatedon 07-01 Absolute Lymph 1.93 X10 3/uL Normal 0.83-4.51 [facility] Comment on above: Order Comment: 109-1 Performed By: #### L 100.0100 ####[facility] [address] [place], [address] Absolute Neut 6.8 X10 3/uL Normal 2.0-7.7 [facility] Comment on above: Order Comment: 109-1 Performed By: #### L 100.0100 ####[facility] [address] [place], [address] Basophils/100 WBC (Bld) 0.5 % Normal 0-1 [facility] Comment on above: Order Comment: 109-1 Performed By: #### L 100.0100 ####[facility] [address] [place], [address] Eosinophils/100 WBC (Bld) 0.7 % Normal 0-5 [facility] Comment on above: Order Comment: 109-1 Performed By: #### L 100.0100 ####[facility] [address] [place], [address] Erythrocyte distribution width (RBC) [Ratio] 12.8 % Normal 11.6-14.6 [facility] Comment on above: Order Comment: 109-1 Performed By: #### L 100.0100 ####[facility] [address] [place], [address] Hematocrit (Bld) [Volume fraction] 40.7 % Normal 40-54 [facility] Comment on above: Order Comment: 109-1 Performed By: #### L 100.0100 ####[facility] [address] [place], [address] Hemoglobin (Bld) [Mass/Vol] 13.5 g/dL Normal 13.0-16.5 [facility] Comment on above: Order Comment: 109-1 Performed By: #### L 100.0100 ####[facility] [address] [place], [address] IG% 0.400 Normal 0.0-0.9 [facility] Comment on above: Order Comment: 109-1 Result Comment: IG% - Immature Granulocytes (promyelocytes, myelocytes andmetamyelocytes) > 1% indicates that a LEFT SHIFT is Present. Performed By: #### L 100.0100 ####[facility] [address] [place], [address] Lymphocytes/100 WBC (Bld) 20.2 % Normal 19-41 [facility] Comment on above: Order Comment: 109-1 Performed By: #### L 100.0100 ####[facility] [address] [place], [address] MCH (RBC) [Entitic mass] 29.9 pg Normal 27.0-32.0 [facility] Comment on above: Order Comment: 109-1 Performed By: #### L 100.0100 ####[facility] [address] [place], [address] MCHC (RBC) [Mass/Vol] 33.2 g/dL Normal 32-36 [facility] Comment on above: Order Comment: 109-1 Performed By: #### L 100.0100 ####[facility] [address] [place], [address] MCV (RBC) [Entitic vol] 90.0 fL Normal 80-94 [facility] Comment on above: Order Comment: 109-1 Performed By: #### L 100.0100 ####[facility] [address] [place], [address] Monocytes/100 WBC (Bld) 7.1 % Normal 0-10 [facility] Comment on above: Order Comment: 109-1 Performed By: #### L 100.0100 ####[facility] [address] [place], [address] Neutrophils/100 WBC (Bld) 71.1 % High 47-70 [facility] Comment on above: Order Comment: 109-1 Performed By: #### L 100.0100 ####[facility] [address] [place], [address] Nucleated RBC (Bld) [#/Vol] 0 10*3/uL Normal 0-5 [facility] Comment on above: Order Comment: 109-1 Performed By: #### L 100.0100 ####[facility] [address] [place], [address] Platelet mean volume (Bld) [Entitic vol] 11.2 fL Normal 6.2-12.0 [facility] Comment on above: Order Comment: 109-1 Performed By: #### L 100.0100 ####[facility] [address] [place], [address] Platelets (Bld) [#/Vol] 218 10*3/uL Normal 150-450 [facility] Comment on above: Order Comment: 109-1 Performed By: #### L 100.0100 ####[facility] [address] [place], [address] RBC (Bld) [#/Vol] 4.52 10*6/uL Low 4.6-6.2 [facility] Comment on above: Order Comment: 109-1 Performed By: #### L 100.0100 ####[facility] [address] [place], [address] RDW SD 41.9 fl Normal 35.1-43.9 [facility] Comment on above: Order Comment: 109-1 Performed By: #### L 100.0100 ####[facility] [address] [place], [address] WBC (Bld) [#/Vol] 9.6 10*3/uL Normal 4.4-11.0 [facility] Comment on above: Order Comment: 109-1 Performed By: #### L 100.0100 ####[facility] [address] [place], [address] Eosinophil percentageOrdered By: Renard Burgos on 07-29-2024 Eosinophils/100 WBC (Bld) 0.7 % 0-5 [facility] Erythrocyte distribution wid th ratioOrdered By: Renard Burgos on 07-29-2024 Erythrocyte distribution width (RBC) [Ratio] 12.8 % 11.6-14.6 [facility] Erythrocyte distribution wid th standard deviationOrdered By: Renard Burgos on 07-29-2024 Erythrocyte distribution width (RBC) [Entitic vol] 41.9 fL 35.1-43.9 [facility] Erythrocyte distribution width (RBC) [Ratio] 41.9 fl 35.1-43.9 [facility] Hematocrit Auto (Bld) [Volum e fraction]Ordered By: Renard Burgos on 07-29-2024 Hematocrit (Bld) [Volume fraction] 40.7 % 40-54 [facility] Hemoglobin measurementOrdere d By: Renard Burgos on 07-29-2024 Hemoglobin (Bld) [Mass/Vol] 13.5 g/dL 13.0-16.5 [facility] Immature granulocytes/100 WB C Auto (Bld)Ordered By: Renard Burgos on 07-29-2024 Immature granulocytes/100 WBC (Bld) 0.400 % 0.0-0.9 [facility] Comment on above: IG% - Immature Granu locytes (promyelocytes, myelocytes and metamyelocytes) > 1% indicates that a LEFT SHIFT is Present. Lymphocytes Auto (Unsp spec) [#/Vol]Ordered By: Renard Burgos on 07-29-2024 Lymphocytes (Bld) [#/Vol] 1.93 10*3/uL 0.83-4.51 [facility] Lymphocytes/100 WBC Auto (Un sp spec)Ordered By: Renard Burgos on 07-29-2024 Lymphocytes/100 WBC (Bld) 20.2 % 19-41 [facility] MCV (mean corpuscular volume ) determinationOrdered By: Renard Burgos on 07-29-2024 MCV (RBC) [Entitic vol] 90.0 fL 80-94 [facility] Mean corpuscular hemoglobin (MCH) determinationOrdered By: Renard Burgos on 07-29-2024 MCH (RBC) [Entitic mass] 29.9 pg 27.0-32.0 [facility] Mean corpuscular hemoglobin concentration (MCHC) determinationOrdered By: Renard Burgos on 07-29-2024 MCHC (RBC) [Mass/Vol] 33.2 g/dL 32-36 [facility] Mean platelet volume determi nationOrdered By: Renard Burgos on 07-29-2024 Platelet mean volume (Bld) [Entitic vol] 11.2 fL 6.2-12.0 [facility] Monocyte percentageOrdered B y: Renard Burgos on 07-29-2024 Monocytes/100 WBC (Bld) 7.1 % 0-10 [facility] Neutrophil percentageOrdered By: Renard Burgos on 07-29-2024 Neutrophils/100 WBC (Bld) 71.1 % High 47-70 [facility] Nucleated red blood cell per centageOrdered By: Renard Burgos on 07-29-2024 Nucleated RBC/100 WBC (Bld) [Ratio] 0 % 0-5 [facility] Platelet countOrdered By: Garrick Bhatt on 07-29-2024 Platelets (Bld) [#/Vol] 218 10*3/uL 150-450 [facility] RBC Auto (Bld) [#/Vol]Ordere d By: Renard Burgos on 07-29-2024 RBC (Bld) [#/Vol] 4.52 10*6/uL Low 4.6-6.2 [facility] White blood cell (WBC) count Ordered By: Renard Burgos on 07-29-2024 WBC (Bld) [#/Vol] 9.6 10*3/uL 4.4-11.0 [facility] Absolute lymphocyte countOrd ered By: Renard Burgos on 07-22-2024 Lymphocytes Auto (Unsp spec) [#/Vol] 1.90 10*3/uL 0.83-4.51 [facility] Absolute neutrophil countOrd ered By: Renard Burgos on 07-22-2024 Neutrophils (Bld) [#/Vol] 5.2 10*3/uL 2.0-7.7 [facility] Automated lymphocyte count a s percentage of total leukocytesOrdered By: Renard Burgos on 07-22-2024 Lymphocytes/100 WBC Auto (Unsp spec) 23.9 % 19-41 [facility] Basophil percentageOrdered B y: Renard Burgos on 07-22-2024 Basophils/100 WBC (Bld) 0.6 % 0-1 [facility] CBC W/Diff, Automatedon 06-30 Absolute Lymph 1.90 X10 3/uL Normal 0.83-4.51 [facility] Comment on above: Order Comment: 109.1 Performed By: #### L 100.0100 ####[facility] [address] [place], [place], [id number] Absolute Neut 5.2 X10 3/uL Normal 2.0-7.7 [facility] Comment on above: Order Comment: 109.1 Performed By: #### L 100.0100 ####[facility] [address] [place], [address] Basophils/100 WBC (Bld) 0.6 % Normal 0-1 [facility] Comment on above: Order Comment: 109.1 Performed By: #### L 100.0100 ####[facility] [address] [place], [address] Eosinophils/100 WBC (Bld) 0.9 % Normal 0-5 [facility] Comment on above: Order Comment: 109.1 Performed By: #### L 100.0100 ####[facility] [address] [place], [address] Erythrocyte distribution width (RBC) [Ratio] 12.9 % Normal 11.6-14.6 [facility] Comment on above: Order Comment: 109.1 Performed By: #### L 100.0100 ####[facility] [address] [place], [address] Hematocrit (Bld) [Volume fraction] 41.4 % Normal 40-54 [facility] Comment on above: Order Comment: 109.1 Performed By: #### L 100.0100 ####[facility] [address] [place], [address] Hemoglobin (Bld) [Mass/Vol] 13.5 g/dL Normal 13.0-16.5 [facility] Comment on above: Order Comment: 109.1 Performed By: #### L 100.0100 ####[facility] [address] [place], [address] IG% 0.300 Normal 0.0-0.9 [facility] Comment on above: Order Comment: 109.1 Result Comment: IG% - Immature Granulocytes (promyelocytes, myelocytes andmetamyelocytes) > 1% indicates that a LEFT SHIFT is Present. Performed By: #### L 100.0100 ####[facility] [address] [place], [address] Lymphocytes/100 WBC (Bld) 23.9 % Normal 19-41 [facility] Comment on above: Order Comment: 109.1 Performed By: #### L 100.0100 ####[facility] [address] [place], [address] MCH (RBC) [Entitic mass] 29.8 pg Normal 27.0-32.0 [facility] Comment on above: Order Comment: 109.1 Performed By: #### L 100.0100 ####[facility] [address] [place], [address] MCHC (RBC) [Mass/Vol] 32.6 g/dL Normal 32-36 [facility] Comment on above: Order Comment: 109.1 Performed By: #### L 100.0100 ####[facility] [address] [place], [address] MCV (RBC) [Entitic vol] 91.4 fL Normal 80-94 [facility] Comment on above: Order Comment: 109.1 Performed By: #### L 100.0100 ####[facility] [address] [place], [address] Monocytes/100 WBC (Bld) 9.4 % Normal 0-10 [facility] Comment on above: Order Comment: 109.1 Performed By: #### L 100.0100 ####[facility] [address] [place], [address] Neutrophils/100 WBC (Bld) 64.9 % Normal 47-70 [facility] Comment on above: Order Comment: 109.1 Performed By: #### L 100.0100 ####[facility] [address] [place], [address] Nucleated RBC (Bld) [#/Vol] 0 10*3/uL Normal 0-5 [facility] Comment on above: Order Comment: 109.1 Performed By: #### L 100.0100 ####[facility] [address] [place], [address] Platelet mean volume (Bld) [Entitic vol] 11.5 fL Normal 6.2-12.0 [facility] Comment on above: Order Comment: 109.1 Performed By: #### L 100.0100 ####[facility] [address] [place], [address] Platelets (Bld) [#/Vol] 202 10*3/uL Normal 150-450 [facility] Comment on above: Order Comment: 109.1 Performed By: #### L 100.0100 ####[facility] [address] [place], [address] RBC (Bld) [#/Vol] 4.53 10*6/uL Low 4.6-6.2 [facility] Comment on above: Order Comment: 109.1 Performed By: #### L 100.0100 ####[facility] [address] [place], [address] RDW SD 42.7 fl Normal 35.1-43.9 [facility] Comment on above: Order Comment: 109.1 Performed By: #### L 100.0100 ####[facility] [address] [place], [address] WBC (Bld) [#/Vol] 8.0 10*3/uL Normal 4.4-11.0 [facility] Comment on above: Order Comment: 109.1 Performed By: #### L 100.0100 ####[facility] [address] [place], [address] Eosinophil percentageOrdered By: Renard Burgos on 07-22-2024 Eosinophils/100 WBC (Bld) 0.9 % 0-5 [facility] Erythrocyte distribution wid th ratioOrdered By: Renard Burgos on 07-22-2024 Erythrocyte distribution width (RBC) [Ratio] 12.9 % 11.6-14.6 [facility] Erythrocyte distribution wid th standard deviationOrdered By: Renard Burgos on 07-22-2024 Erythrocyte distribution width (RBC) [Entitic vol] 42.7 fL 35.1-43.9 [facility] Erythrocyte distribution width (RBC) [Ratio] 42.7 fl 35.1-43.9 [facility] Hematocrit Auto (Bld) [Volum e fraction]Ordered By: Renard Burgos on 07-22-2024 Hematocrit (Bld) [Volume fraction] 41.4 % 40-54 [facility] Hemoglobin measurementOrdere d By: Renard Burgos on 07-22-2024 Hemoglobin (Bld) [Mass/Vol] 13.5 g/dL 13.0-16.5 [facility] Immature granulocytes/100 WB C Auto (Bld)Ordered By: Renard Burgos on 07-22-2024 Immature granulocytes/100 WBC (Bld) 0.300 % 0.0-0.9 [facility] Comment on above: IG% - Immature Granu locytes (promyelocytes, myelocytes and metamyelocytes) > 1% indicates that a LEFT SHIFT is Present. Lymphocytes Auto (Unsp spec) [#/Vol]Ordered By: Renard Burgos on 07-22-2024 Lymphocytes (Bld) [#/Vol] 1.90 10*3/uL 0.83-4.51 [facility] Lymphocytes/100 WBC Auto (Un sp spec)Ordered By: Renard Burgos on 07-22-2024 Lymphocytes/100 WBC (Bld) 23.9 % 19-41 [facility] MCV (mean corpuscular volume ) determinationOrdered By: Renard Burgos on 07-22-2024 MCV (RBC) [Entitic vol] 91.4 fL 80-94 [facility] Mean corpuscular hemoglobin (MCH) determinationOrdered By: Renard Burgos on 07-22-2024 MCH (RBC) [Entitic mass] 29.8 pg 27.0-32.0 [facility] Mean corpuscular hemoglobin concentration (MCHC) determinationOrdered By: Renard Burgos on 07-22-2024 MCHC (RBC) [Mass/Vol] 32.6 g/dL 32-36 [facility] Mean platelet volume determi nationOrdered By: Renard Burgos on 07-22-2024 Platelet mean volume (Bld) [Entitic vol] 11.5 fL 6.2-12.0 [facility] Monocyte percentageOrdered B y: Renard Burgos on 07-22-2024 Monocytes/100 WBC (Bld) 9.4 % 0-10 [facility] Neutrophil percentageOrdered By: Renard Burgos on 07-22-2024 Neutrophils/100 WBC (Bld) 64.9 % 47-70 [facility] Nucleated red blood cell per centageOrdered By: Renard Burgos on 07-22-2024 Nucleated RBC/100 WBC (Bld) [Ratio] 0 % 0-5 [facility] Platelet countOrdered By: Garrick Bhatt on 07-22-2024 Platelets (Bld) [#/Vol] 202 10*3/uL 150-450 [facility] RBC Auto (Bld) [#/Vol]Ordere d By: Renard Burgos on 07-22-2024 RBC (Bld) [#/Vol] 4.53 10*6/uL Low 4.6-6.2 [facility] White blood cell (WBC) count Ordered By: Renard Burgos on 07-22-2024 WBC (Bld) [#/Vol] 8.0 10*3/uL 4.4-11.0 [facility] L506.1001on 07-16-2024 Vitamin D 25-OH 21.8 ng/mL Low 30-100 [facility] Comment on above: Order Comment: 109 Result Comment: Edilma min D StatusDeficiency: <20 ng/mL (50nmol/L)Insufficiency: 20-30 ng/mL (50-75 nmol/L)Sufficiency: 30-100 ng/mL (75-250 nmol/L)Toxicity: >100 ng/mL (>250 nmol/L) Performed By: #### L 506.1001 ####[facility] [address] [place], [address] Vitamin D, 25-hydroxyOrdered By: Renard Burgos on 07-16-2024 Vitamin D 25-Hydroxy 21.8 ng/mL Low 30-100 [facility] Comment on above: Vitamin D StatusDefi ciency: <20 ng/mL (50nmol/L)Insufficiency: 20-30 ng/mL (50-75 nmol/L)Sufficiency: 30-100 ng/mL (75-250 nmol/L)Toxicity: >100 ng/mL (>250 nmol/L) Absolute lymphocyte countOrd ered By: Renard Burgos on 07-15-2024 Lymphocytes Auto (Unsp spec) [#/Vol] 2.10 10*3/uL 0.83-4.51 [facility] Absolute neutrophil countOrd ered By: Renard Burgos on 07-15-2024 Neutrophils (Bld) [#/Vol] 6.9 10*3/uL 2.0-7.7 [facility] Automated lymphocyte count a s percentage of total leukocytesOrdered By: Renard Burgos on 07-15-2024 Lymphocytes/100 WBC Auto (Unsp spec) 21.0 % 19-41 [facility] Basophil percentageOrdered B y: Renard Burgos on 07-15-2024 Basophils/100 WBC (Bld) 0.5 % 0-1 [facility] CBC W/Diff, Automatedon 06-29 Absolute Lymph 2.10 X10 3/uL Normal 0.83-4.51 [facility] Comment on above: Order Comment: 109.1 Performed By: #### L 100.0100 ####[facility] [address] [place], [address] Absolute Neut 6.9 X10 3/uL Normal 2.0-7.7 [facility] Comment on above: Order Comment: 109.1 Performed By: #### L 100.0100 ####[facility] [address] [place], [address] Basophils/100 WBC (Bld) 0.5 % Normal 0-1 [facility] Comment on above: Order Comment: 109.1 Performed By: #### L 100.0100 ####[facility] [address] [place], [address] Eosinophils/100 WBC (Bld) 1.2 % Normal 0-5 [facility] Comment on above: Order Comment: 109.1 Performed By: #### L 100.0100 ####[facility] [address] [place], [address] Erythrocyte distribution width (RBC) [Ratio] 12.9 % Normal 11.6-14.6 [facility] Comment on above: Order Comment: 109.1 Performed By: #### L 100.0100 ####[facility] [address] [place], [address] Hematocrit (Bld) [Volume fraction] 41.0 % Normal 40-54 [facility] Comment on above: Order Comment: 109.1 Performed By: #### L 100.0100 ####[facility] [address] [place], [address] Hemoglobin (Bld) [Mass/Vol] 13.4 g/dL Normal 13.0-16.5 [facility] Comment on above: Order Comment: 109.1 Performed By: #### L 100.0100 ####[facility] [address] [place], [address] IG% 0.300 Normal 0.0-0.9 [facility] Comment on above: Order Comment: 109.1 Result Comment: IG% - Immature Granulocytes (promyelocytes, myelocytes andmetamyelocytes) > 1% indicates that a LEFT SHIFT is Present. Performed By: #### L 100.0100 ####[facility] [address] [place], [address] Lymphocytes/100 WBC (Bld) 21.0 % Normal 19-41 [facility] Comment on above: Order Comment: 109.1 Performed By: #### L 100.0100 ####[facility] [address] [place], [address] MCH (RBC) [Entitic mass] 29.7 pg Normal 27.0-32.0 [facility] Comment on above: Order Comment: 109.1 Performed By: #### L 100.0100 ####[facility] [address], [address] MCHC (RBC) [Mass/Vol] 32.7 g/dL Normal 32-36 [facility] Comment on above: Order Comment: 109.1 Performed By: #### L 100.0100 ####[facility] [address] [place], [address] MCV (RBC) [Entitic vol] 90.9 fL Normal 80-94 [facility] Comment on above: Order Comment: 109.1 Performed By: #### L 100.0100 ####[facility] [address] [place], [address] Monocytes/100 WBC (Bld) 7.6 % Normal 0-10 [facility] Comment on above: Order Comment: 109.1 Performed By: #### L 100.0100 ####[facility] [address] [place], [address] Neutrophils/100 WBC (Bld) 69.4 % Normal 47-70 [facility] Comment on above: Order Comment: 109.1 Performed By: #### L 100.0100 ####[facility] [address] [place], [address] Nucleated RBC (Bld) [#/Vol] 0 10*3/uL Normal 0-5 [facility] Comment on above: Order Comment: 109.1 Performed By: #### L 100.0100 ####[facility] [address] [place], [address] Platelet mean volume (Bld) [Entitic vol] 11.4 fL Normal 6.2-12.0 [facility] Comment on above: Order Comment: 109.1 Performed By: #### L 100.0100 ####[facility] [address] [place], [address] Platelets (Bld) [#/Vol] 206 10*3/uL Normal 150-450 [facility] Comment on above: Order Comment: 109.1 Performed By: #### L 100.0100 ####[facility] [address] [place], [address] RBC (Bld) [#/Vol] 4.51 10*6/uL Low 4.6-6.2 [facility] Comment on above: Order Comment: 109.1 Performed By: #### L 100.0100 ####[facility] [address] [place], [address] RDW SD 42.3 fl Normal 35.1-43.9 [facility] Comment on above: Order Comment: 109.1 Performed By: #### L 100.0100 ####[facility] [address] [place], [address] WBC (Bld) [#/Vol] 10.0 10*3/uL Normal 4.4-11.0 [facility] Comment on above: Order Comment: 109.1 Performed By: #### L 100.0100 ####[facility] [address] [place], [address] Eosinophil percentageOrdered By: Renard Burgos on 07-15-2024 Eosinophils/100 WBC (Bld) 1.2 % 0-5 [facility] Erythrocyte distribution wid th ratioOrdered By: Renard Burgos on 07-15-2024 Erythrocyte distribution width (RBC) [Ratio] 12.9 % 11.6-14.6 [facility] Erythrocyte distribution wid th standard deviationOrdered By: Renard Burgos on 07-15-2024 Erythrocyte distribution width (RBC) [Entitic vol] 42.3 fL 35.1-43.9 [facility] Erythrocyte distribution width (RBC) [Ratio] 42.3 fl 35.1-43.9 [facility] Hematocrit Auto (Bld) [Volum e fraction]Ordered By: Renard Burgos on 07-15-2024 Hematocrit (Bld) [Volume fraction] 41.0 % 40-54 [facility] Hemoglobin measurementOrdere d By: Renard Burgos on 07-15-2024 Hemoglobin (Bld) [Mass/Vol] 13.4 g/dL 13.0-16.5 [facility] Immature granulocytes/100 WB C Auto (Bld)Ordered By: Renard Burgos on 07-15-2024 Immature granulocytes/100 WBC (Bld) 0.300 % 0.0-0.9 [facility] Comment on above: IG% - Immature Granu locytes (promyelocytes, myelocytes and metamyelocytes) > 1% indicates that a LEFT SHIFT is Present. Lymphocytes Auto (Unsp spec) [#/Vol]Ordered By: Renard Burgos on 07-15-2024 Lymphocytes (Bld) [#/Vol] 2.10 10*3/uL 0.83-4.51 [facility] Lymphocytes/100 WBC Auto (Un sp spec)Ordered By: Renard Burgos on 07-15-2024 Lymphocytes/100 WBC (Bld) 21.0 % 19-41 [facility] MCV (mean corpuscular volume ) determinationOrdered By: Renard Burgos on 07-15-2024 MCV (RBC) [Entitic vol] 90.9 fL 80-94 [facility] Mean corpuscular hemoglobin (MCH) determinationOrdered By: Renard Burgos on 07-15-2024 MCH (RBC) [Entitic mass] 29.7 pg 27.0-32.0 [facility] Mean corpuscular hemoglobin concentration (MCHC) determinationOrdered By: Renard Burgos on 07-15-2024 MCHC (RBC) [Mass/Vol] 32.7 g/dL 32-36 [facility] Mean platelet volume determi nationOrdered By: Renard Burgos on 07-15-2024 Platelet mean volume (Bld) [Entitic vol] 11.4 fL 6.2-12.0 [facility] Monocyte percentageOrdered B y: Renard Burgos on 07-15-2024 Monocytes/100 WBC (Bld) 7.6 % 0-10 [facility] Neutrophil percentageOrdered By: Renard Burgos on 07-15-2024 Neutrophils/100 WBC (Bld) 69.4 % 47-70 [facility] Nucleated red blood cell per centageOrdered By: Renard Burgos on 07-15-2024 Nucleated RBC/100 WBC (Bld) [Ratio] 0 % 0-5 [facility] Platelet countOrdered By: Garrick Bhatt on 07-15-2024 Platelets (Bld) [#/Vol] 206 10*3/uL 150-450 [facility] RBC Auto (Bld) [#/Vol]Ordere d By: Renard Burgos on 07-15-2024 RBC (Bld) [#/Vol] 4.51 10*6/uL Low 4.6-6.2 [facility] White blood cell (WBC) count Ordered By: Renard Burgos on 07-15-2024 WBC (Bld) [#/Vol] 10.0 10*3/uL 4.4-11.0 [facility] Absolute lymphocyte countOrd ered By: Renard Burgos on 07-08-2024 Lymphocytes Auto (Unsp spec) [#/Vol] 2.02 10*3/uL 0.83-4.51 [facility] Absolute neutrophil countOrd ered By: Renard Burgos on 07-08-2024 Neutrophils (Bld) [#/Vol] 7.2 10*3/uL 2.0-7.7 [facility] Automated lymphocyte count a s percentage of total leukocytesOrdered By: Renard Burgos on 07-08-2024 Lymphocytes/100 WBC Auto (Unsp spec) 19.7 % 19-41 [facility] Basophil percentageOrdered B y: Renard Burgos on 07-08-2024 Basophils/100 WBC (Bld) 0.6 % 0-1 [facility] CBC W/Diff, Automatedon 06-29 Absolute Lymph 2.02 X10 3/uL Normal 0.83-4.51 [facility] Comment on above: Order Comment: 109-1 Performed By: #### L 100.0100 ####[facility] [address] [place], [address] Absolute Neut 7.2 X10 3/uL Normal 2.0-7.7 [facility] Comment on above: Order Comment: 109-1 Performed By: #### L 100.0100 ####[facility] [address] [place], [address] Basophils/100 WBC (Bld) 0.6 % Normal 0-1 [facility] Comment on above: Order Comment: 109-1 Performed By: #### L 100.0100 ####[facility] [address] [place], [address] Eosinophils/100 WBC (Bld) 1.5 % Normal 0-5 [facility] Comment on above: Order Comment: 109-1 Performed By: #### L 100.0100 ####[facility] [address] [place], [address] Erythrocyte distribution width (RBC) [Ratio] 12.9 % Normal 11.6-14.6 [facility] Comment on above: Order Comment: 109-1 Performed By: #### L 100.0100 ####[facility] [address] [place], [address] Hematocrit (Bld) [Volume fraction] 40.6 % Normal 40-54 [facility] Comment on above: Order Comment: 109-1 Performed By: #### L 100.0100 ####[facility] [address] [place], [address] Hemoglobin (Bld) [Mass/Vol] 13.6 g/dL Normal 13.0-16.5 [facility] Comment on above: Order Comment: 109-1 Performed By: #### L 100.0100 ####[facility] [address] [place], [address] IG% 0.500 Normal 0.0-0.9 [facility] Comment on above: Order Comment: 109-1 Result Comment: IG% - Immature Granulocytes (promyelocytes, myelocytes andmetamyelocytes) > 1% indicates that a LEFT SHIFT is Present. Performed By: #### L 100.0100 ####[facility] [address] [place], [address] Lymphocytes/100 WBC (Bld) 19.7 % Normal 19-41 [facility] Comment on above: Order Comment: 109-1 Performed By: #### L 100.0100 ####[facility] [address] [place], [address] MCH (RBC) [Entitic mass] 30.5 pg Normal 27.0-32.0 [facility] Comment on above: Order Comment: 109-1 Performed By: #### L 100.0100 ####[facility] [address] [place], [address] MCHC (RBC) [Mass/Vol] 33.5 g/dL Normal 32-36 [facility] Comment on above: Order Comment: 109-1 Performed By: #### L 100.0100 ####[facility] [address] [place], [address] MCV (RBC) [Entitic vol] 91.0 fL Normal 80-94 [facility] Comment on above: Order Comment: 109-1 Performed By: #### L 100.0100 ####[facility] [address] [place], [address] Monocytes/100 WBC (Bld) 7.4 % Normal 0-10 [facility] Comment on above: Order Comment: 109-1 Performed By: #### L 100.0100 ####[facility] [address] [place], [address] Neutrophils/100 WBC (Bld) 70.3 % High 47-70 [facility] Comment on above: Order Comment: 109-1 Performed By: #### L 100.0100 ####[facility] [address] [place], [address] Nucleated RBC (Bld) [#/Vol] 0 10*3/uL Normal 0-5 [facility] Comment on above: Order Comment: 109-1 Performed By: #### L 100.0100 ####[facility] [address] [place], [address] Platelet mean volume (Bld) [Entitic vol] 11.1 fL Normal 6.2-12.0 [facility] Comment on above: Order Comment: 109-1 Performed By: #### L 100.0100 ####[facility] [address] [place], [address] Platelets (Bld) [#/Vol] 207 10*3/uL Normal 150-450 [facility] Comment on above: Order Comment: 109-1 Performed By: #### L 100.0100 ####[facility] [address] [place], [address] RBC (Bld) [#/Vol] 4.46 10*6/uL Low 4.6-6.2 [facility] Comment on above: Order Comment: 109-1 Performed By: #### L 100.0100 ####[facility] [address] [place], [address] RDW SD 42.5 fl Normal 35.1-43.9 [facility] Comment on above: Order Comment: 109-1 Performed By: #### L 100.0100 ####[facility] [address] [place], [address] WBC (Bld) [#/Vol] 10.3 10*3/uL Normal 4.4-11.0 [facility] Comment on above: Order Comment: 109-1 Performed By: #### L 100.0100 ####[facility] [address] [place], [address] Eosinophil percentageOrdered By: Renard Burgos on 07-08-2024 Eosinophils/100 WBC (Bld) 1.5 % 0-5 [facility] Erythrocyte distribution wid th ratioOrdered By: Renard Burgos on 07-08-2024 Erythrocyte distribution width (RBC) [Ratio] 12.9 % 11.6-14.6 [facility] Erythrocyte distribution wid th standard deviationOrdered By: Renard Burgos on 07-08-2024 Erythrocyte distribution width (RBC) [Entitic vol] 42.5 fL 35.1-43.9 [facility] Erythrocyte distribution width (RBC) [Ratio] 42.5 fl 35.1-43.9 [facility] Hematocrit Auto (Bld) [Volum e fraction]Ordered By: Renard Burgos on 07-08-2024 Hematocrit (Bld) [Volume fraction] 40.6 % 40-54 [facility] Hemoglobin measurementOrdere d By: Renard Burgos on 07-08-2024 Hemoglobin (Bld) [Mass/Vol] 13.6 g/dL 13.0-16.5 [facility] Immature granulocytes/100 WB C Auto (Bld)Ordered By: Renard Burgos on 07-08-2024 Immature granulocytes/100 WBC (Bld) 0.500 % 0.0-0.9 [facility] Comment on above: IG% - Immature Granu locytes (promyelocytes, myelocytes and metamyelocytes) > 1% indicates that a LEFT SHIFT is Present. Lymphocytes Auto (Unsp spec) [#/Vol]Ordered By: Renard Burgos on 07-08-2024 Lymphocytes (Bld) [#/Vol] 2.02 10*3/uL 0.83-4.51 [facility] Lymphocytes/100 WBC Auto (Un sp spec)Ordered By: Renard Burgos on 07-08-2024 Lymphocytes/100 WBC (Bld) 19.7 % 19-41 [facility] MCV (mean corpuscular volume ) determinationOrdered By: Renard Burgos on 07-08-2024 MCV (RBC) [Entitic vol] 91.0 fL 80-94 [facility] Mean corpuscular hemoglobin (MCH) determinationOrdered By: Renard Burgos on 07-08-2024 MCH (RBC) [Entitic mass] 30.5 pg 27.0-32.0 [facility] Mean corpuscular hemoglobin concentration (MCHC) determinationOrdered By: Renard Burgos on 07-08-2024 MCHC (RBC) [Mass/Vol] 33.5 g/dL 32-36 [facility] Mean platelet volume determi nationOrdered By: Renard Burgos on 07-08-2024 Platelet mean volume (Bld) [Entitic vol] 11.1 fL 6.2-12.0 [facility] Monocyte percentageOrdered B y: Renard Burgos on 07-08-2024 Monocytes/100 WBC (Bld) 7.4 % 0-10 [facility] Neutrophil percentageOrdered By: Renard Burgos on 07-08-2024 Neutrophils/100 WBC (Bld) 70.3 % High 47-70 [facility] Nucleated red blood cell per centageOrdered By: Renard Burgos on 07-08-2024 Nucleated RBC/100 WBC (Bld) [Ratio] 0 % 0-5 [facility] Platelet countOrdered By: Garrick Bhatt on 07-08-2024 Platelets (Bld) [#/Vol] 207 10*3/uL 150-450 [facility] RBC Auto (Bld) [#/Vol]Ordere d By: Renard Burgos on 07-08-2024 RBC (Bld) [#/Vol] 4.46 10*6/uL Low 4.6-6.2 [facility] White blood cell (WBC) count Ordered By: Renard Burgos on 07-08-2024 WBC (Bld) [#/Vol] 10.3 10*3/uL 4.4-11.0 [facility] Absolute lymphocyte countOrd ered By: Renard Burgos on 07-01-2024 Lymphocytes Auto (Unsp spec) [#/Vol] 2.03 10*3/uL 0.83-4.51 [facility] Absolute neutrophil countOrd ered By: Renard Burgos on 07-01-2024 Neutrophils (Bld) [#/Vol] 7.0 10*3/uL 2.0-7.7 [facility] Automated lymphocyte count a s percentage of total leukocytesOrdered By: Renard Burgos on 07-01-2024 Lymphocytes/100 WBC Auto (Unsp spec) 20.3 % 19-41 [facility] Basophil percentageOrdered B y: Renard Burgos on 07-01-2024 Basophils/100 WBC (Bld) 0.6 % 0-1 [facility] CBC W/Diff, Automatedon Absolute Lymph 2.03 X10 3/uL Normal 0.83-4.51 [facility] Comment on above: Order Comment: 109 Performed By: #### L 100.0100 ####[facility] [address] [place], [address] Absolute Neut 7.0 X10 3/uL Normal 2.0-7.7 [facility] Comment on above: Order Comment: 109 Performed By: #### L 100.0100 ####[facility] [address] [place], [address] Basophils/100 WBC (Bld) 0.6 % Normal 0-1 [facility] Comment on above: Order Comment: 109 Performed By: #### L 100.0100 ####[facility] [address] [place], [address] Eosinophils/100 WBC (Bld) 1.3 % Normal 0-5 [facility] Comment on above: Order Comment: 109 Performed By: #### L 100.0100 ####[facility] [address] [place], [address] Erythrocyte distribution width (RBC) [Ratio] 13.1 % Normal 11.6-14.6 [facility] Comment on above: Order Comment: 109 Performed By: #### L 100.0100 ####[facility] [address] [place], [address] Hematocrit (Bld) [Volume fraction] 41.7 % Normal 40-54 [facility] Comment on above: Order Comment: 109 Performed By: #### L 100.0100 ####[facility] [address] [place], [address] Hemoglobin (Bld) [Mass/Vol] 13.6 g/dL Normal 13.0-16.5 [facility] Comment on above: Order Comment: 109 Performed By: #### L 100.0100 ####[facility] [address] [place], [address] IG% 0.500 Normal 0.0-0.9 [facility] Comment on above: Order Comment: 109 Result Comment: IG% - Immature Granulocytes (promyelocytes, myelocytes andmetamyelocytes) > 1% indicates that a LEFT SHIFT is Present. Performed By: #### L 100.0100 ####[facility] [address] [place], [address] Lymphocytes/100 WBC (Bld) 20.3 % Normal 19-41 [facility] Comment on above: Order Comment: 109 Performed By: #### L 100.0100 ####[facility] [address] [place], [address] MCH (RBC) [Entitic mass] 29.6 pg Normal 27.0-32.0 [facility] Comment on above: Order Comment: 109 Performed By: #### L 100.0100 ####[facility] [address] [place], [address] MCHC (RBC) [Mass/Vol] 32.6 g/dL Normal 32-36 [facility] Comment on above: Order Comment: 109 Performed By: #### L 100.0100 ####[facility] [address] [place], [address] MCV (RBC) [Entitic vol] 90.8 fL Normal 80-94 [facility] Comment on above: Order Comment: 109 Performed By: #### L 100.0100 ####[facility] [address] [place], [address] Monocytes/100 WBC (Bld) 6.8 % Normal 0-10 [facility] Comment on above: Order Comment: 109 Performed By: #### L 100.0100 ####[facility] [address] [place], [address] Neutrophils/100 WBC (Bld) 70.5 % High 47-70 [facility] Comment on above: Order Comment: 109 Performed By: #### L 100.0100 ####[facility] [address] [place], [address] Nucleated RBC (Bld) [#/Vol] 0 10*3/uL Normal 0-5 [facility] Comment on above: Order Comment: 109 Performed By: #### L 100.0100 ####[facility] [address] [place], [address] Platelet mean volume (Bld) [Entitic vol] 11.0 fL Normal 6.2-12.0 [facility] Comment on above: Order Comment: 109 Performed By: #### L 100.0100 ####[facility] [address] [place], [address] Platelets (Bld) [#/Vol] 208 10*3/uL Normal 150-450 [facility] Comment on above: Order Comment: 109 Performed By: #### L 100.0100 ####[facility] [address] [place], [address] RBC (Bld) [#/Vol] 4.59 10*6/uL Low 4.6-6.2 [facility] Comment on above: Order Comment: 109 Performed By: #### L 100.0100 ####[facility] [address] [place], [address] RDW SD 42.8 fl Normal 35.1-43.9 [facility] Comment on above: Order Comment: 109 Performed By: #### L 100.0100 ####[facility] [address] [place], [address] WBC (Bld) [#/Vol] 10.0 10*3/uL Normal 4.4-11.0 [facility] Comment on above: Order Comment: 109 Performed By: #### L 100.0100 ####[facility] [address] [place], [address] Eosinophil percentageOrdered By: Renard Burgos on 07-01-2024 Eosinophils/100 WBC (Bld) 1.3 % 0-5 [facility] Erythrocyte distribution wid th ratioOrdered By: Renard Burgos on 07-01-2024 Erythrocyte distribution width (RBC) [Ratio] 13.1 % 11.6-14.6 [facility] Erythrocyte distribution wid th standard deviationOrdered By: Renard Burgos on 07-01-2024 Erythrocyte distribution width (RBC) [Entitic vol] 42.8 fL 35.1-43.9 [facility] Erythrocyte distribution width (RBC) [Ratio] 42.8 fl 35.1-43.9 [facility] Hematocrit Auto (Bld) [Volum e fraction]Ordered By: Renard Burgos on 07-01-2024 Hematocrit (Bld) [Volume fraction] 41.7 % 40-54 [facility] Hemoglobin measurementOrdere d By: Renard Burgos on 07-01-2024 Hemoglobin (Bld) [Mass/Vol] 13.6 g/dL 13.0-16.5 [facility] Immature granulocytes/100 WB C Auto (Bld)Ordered By: Renard Burgos on 07-01-2024 Immature granulocytes/100 WBC (Bld) 0.500 % 0.0-0.9 [facility] Comment on above: IG% - Immature Granu locytes (promyelocytes, myelocytes and metamyelocytes) > 1% indicates that a LEFT SHIFT is Present. Lymphocytes Auto (Unsp spec) [#/Vol]Ordered By: Renard Burgos on 07-01-2024 Lymphocytes (Bld) [#/Vol] 2.03 10*3/uL 0.83-4.51 [facility] Lymphocytes/100 WBC Auto (Un sp spec)Ordered By: Renard Burgos on 07-01-2024 Lymphocytes/100 WBC (Bld) 20.3 % 19-41 [facility] MCV (mean corpuscular volume ) determinationOrdered By: Renard Burgos on 07-01-2024 MCV (RBC) [Entitic vol] 90.8 fL 80-94 [facility] Mean corpuscular hemoglobin (MCH) determinationOrdered By: Renard Burgos on 07-01-2024 MCH (RBC) [Entitic mass] 29.6 pg 27.0-32.0 [facility] Mean corpuscular hemoglobin concentration (MCHC) determinationOrdered By: Renard Burgos on 07-01-2024 MCHC (RBC) [Mass/Vol] 32.6 g/dL 32-36 [facility] Mean platelet volume determi nationOrdered By: Renard Burgos on 07-01-2024 Platelet mean volume (Bld) [Entitic vol] 11.0 fL 6.2-12.0 [facility] Monocyte percentageOrdered B y: Renard Burgos on 07-01-2024 Monocytes/100 WBC (Bld) 6.8 % 0-10 [facility] Neutrophil percentageOrdered By: Renard Burgos on 07-01-2024 Neutrophils/100 WBC (Bld) 70.5 % High 47-70 [facility] Nucleated red blood cell per centageOrdered By: Renard Burgos on 07-01-2024 Nucleated RBC/100 WBC (Bld) [Ratio] 0 % 0-5 [facility] Platelet countOrdered By: Garrick Bhatt on 07-01-2024 Platelets (Bld) [#/Vol] 208 10*3/uL 150-450 [facility] RBC Auto (Bld) [#/Vol]Ordere d By: Renard Burgos on 07-01-2024 RBC (Bld) [#/Vol] 4.59 10*6/uL Low 4.6-6.2 [facility] White blood cell (WBC) count Ordered By: Renard Burgos on 07-01-2024 WBC (Bld) [#/Vol] 10.0 10*3/uL 4.4-11.0 [facility] Urine Cultureon 06-30-2024 URC Normal [facility] Comment on above: Performed By: #### M 100.2200, L400.0001 ####[facility] [address] [place], [place], [address] Bilirubin Test strip Ql (U)O rdered By: Renard Burgos on 06-27-2024 Bilirubin Ql (U) Negative Negative [facility] Epithelial cells.squamous LM Ql (Urine sed)Ordered By: Renard Burgos on 06-27-2024 Epithelial cells.squamous LM.HPF (Urine sed) [#/Area] 0 /[HPF] 0-5 [facility] Glucose Ql (U)Ordered By: Garrick Bhatt on 06-27-2024 Urine Glucose (UA) Normal mg/dl Normal [facility] Ketones Test strip Ql (U)Ord ered By: Renard Burgos on 06-27-2024 Ketones Ql (U) Negative Negative [facility] Microscopic analysis of urin e for red blood cells (RBC)Ordered By: Renard Burgos on 06-27-2024 Microscopic analysis of urine for red blood cells (RBC) 0 SEEN /hpf 0-5 [facility] Urine RBC 0 SEEN /hpf 0-5 [facility] Mucus LM Ql (Urine sed)Order ed By: Renard Burgos on 06-27-2024 Mucus Ql (Urine sed) 0 SEEN /hpf [facility] Nitrite Test strip Ql (U)Ord ered By: Renard Burgos on 06-27-2024 Nitrite Ql (U) Negative Negative [facility] Protein Test strip Ql (U)Ord ered By: Renard Burgos on 06-27-2024 Protein Ql (U) 15 mg/dl High Negative [facility] Squamous epithelial cells de tection in urine sediment by light microscopyOrdered By: Renard Burgos on 06-27-2024 Epithelial cells.squamous LM Ql (Urine sed) 0 SEEN /hpf 0-5 [facility] Urinalysis, Completeon 06-27 RBC 0 SEEN Normal 0-5 [facility] Comment on above: Order Comment: ARCHANA TER SPECIMEN Performed By: #### M 100.2200, L400.0001 ####[facility] [address] [place], [address] Urine blood detectionOrdered By: Renard Burgos on 06-27-2024 Urine Occult Blood Negative Negative [facility] Urine clarityOrdered By: Lyubov Burgos on 06-27-2024 Clarity (U) Clear Clear [facility] Urine color determinationOrd ered By: Renard Burgos on 06-27-2024 Color (U) Yellow Yellow [facility] Urine cultureOrdered By: Lyubov Burgos on 06-27-2024 Bacteria identified Cx Nom (U) Staphylococcus warneri Abnormal [facility] Bacteria identified Cx Nom (U) Aerococcus viridans. Abnormal [facility] Bacteria identified Cx Nom (U) Presumptive C albicans Abnormal [facility] Bacteria identified Cx Nom (U) Staphylococcus warneri Abnormal [facility] Bacteria identified Cx Nom (U) Aerococcus viridans. Abnormal [facility] Bacteria identified Cx Nom (U) Presumptive C albicans Abnormal [facility] Urine glucose detectionOrder ed By: Renard Burgos on 06-27-2024 Glucose Ql (U) Normal mg/dl Normal [facility] Urine leukocyte esterase det ection by dipstickOrdered By: Renard Burgos on 06-27-2024 Leukocyte esterase Test strip Ql (U) Negative Negative [facility] Urine pHOrdered By: Renard ocampo on 06-27-2024 pH (U) 7.0 [pH] 5.0 - 8.0 [facility] Urine sediment bacteria coun t by microscopy (number/high power field)Ordered By: Renard Burgos on 06-27-2024 Bacteria LM.HPF (Urine sed) [#/Area] 0 /[HPF] None Seen [facility] Urine specific gravity measu rementOrdered By: Renard Burgos on 06-27-2024 Specific gravity (U) [Rel density] 1.010 1.002-1.030 [facility] Urine urobilinogen measureme ntOrdered By: Renard Burgos on 06-27-2024 Urobilinogen Ql (U) 4 mg/dl High Normal [facility] Urobilinogen Ql (U)Ordered B y: Renard Burgos on 06-27-2024 Urobilinogen (U) [Mass/Vol] 4 mg/dL High Normal [facility] White blood cell countOrdere d By: Renard Burgos on 06-27-2024 Urine WBC 0 SEEN /hpf 0-5 [facility] White blood cell count 0 SEEN /hpf 0-[address] [facility] CT CHEST WO IV CONTRASTon [...] AM EST Cough x 2months Normal [facility] CT Chest WO contraston 06-26 Nonspecific groundglass densities are noted in the bilateral lower lobes. Correlate with concern for atypical infection Report Dictated on Electronically Signed By: Maria Eugenia Ruiz MD Electronically Signed Date/Time: 06/26/2024 8:07 AM EST [facility] Patient [...] Electronically Signed Date/Time: 06/26/2024 8:[address] Chest WO contrastOrdered By: Maria Eugenia Ruiz on 06-26-2024 [employer] Work Phone: Absolute lymphocyte countOrd ered By: Renard Burgos on 06-24-2024 Lymphocytes Auto (Unsp spec) [#/Vol] 1.65 10*3/uL 0.83-4.51 [facility] Absolute neutrophil countOrd ered By: Renard Burgos on 06-24-2024 Neutrophils (Bld) [#/Vol] 10.2 10*3/uL High 2.0-7.7 [facility] Automated lymphocyte count a s percentage of total leukocytesOrdered By: Renard Burgos on 06-24-2024 Lymphocytes/100 WBC Auto (Unsp spec) 12.8 % Low 19-41 [facility] Basic Metabolic Profile (BMP )on 06-24-2024 BUN/CRE 24.9 RATIO High 10-20 [facility] Comment on above: Order Comment: 109.1 Performed By: #### L 100.0100, L500.2500 ####[facility] [address] [place], [address] CA,Total 8.3 mg/dL Low 8.5-10.1 [facility] Comment on above: Order Comment: 109.1 Performed By: #### L 100.0100, L500.2500 ####[facility] [address] [place], [address] Chloride [Moles/Vol] 107 mmol/L Normal 98-107 [facility] Comment on above: Order Comment: 109.1 Performed By: #### L 100.0100, L500.2500 ####[facility] [address] [place], [address] CO2 [Moles/Vol] 24.0 mmol/L Normal 21.0-32.0 [facility] Comment on above: Order Comment: 109.1 Performed By: #### L 100.0100, L500.2500 ####[facility] [address] [place], [address] Creatinine [Mass/Vol] 0.60 mg/dL Low 0.70-1.30 [facility] Comment on above: Order Comment: 109.1 Result Comment: The validity of the calculated GFR GFRAA in patients over70 years has not been determined. Clinical correlation isessential. Performed By: #### L 100.0100, L500.2500 ####[facility] [address] [place], [address] EST GFR - AA 172 mL/min Normal >60 [facility] Comment on above: Order Comment: 109.1 Result Comment: Afri can Hungarian GFR Calc Performed By: #### L 100.0100, L500.2500 ####[facility] [address] [place], [address] GAP 8 Normal 5-15 [facility] Comment on above: Order Comment: 109.1 Performed By: #### L 100.0100, L500.2500 ####[facility] [address] [place], [address] GFR/1.73 sq M.predicted among non-blacks MDRD (S/P/Bld) [Vol rate/Area] 142 mL/min/{1.73_m2} Normal >60 [facility] Comment on above: Order Comment: 109.1 Result Comment: Non- GFR Calc Performed By: #### L 100.0100, L500.2500 ####[facility] [address] [place], [address] Glucose [Mass/Vol] 101 mg/dL Normal 74-106 [facility] Comment on above: Order Comment: 109.1 Result Comment: Fast ing Glucose result from 100 to 125 mg/dLsuggests IMPAIRED HOMEOSTASIS per A.D.A. criteria. Performed By: #### L 100.0100, L500.2500 ####[facility] [address] [place], [address] Potassium [Moles/Vol] 4.1 mmol/L Normal 3.5-5.1 [facility] Comment on above: Order Comment: 109.1 Performed By: #### L 100.0100, L500.2500 ####[facility] [address] [place], [address] Sodium [Moles/Vol] 139 mmol/L Normal 136-145 [facility] Comment on above: Order Comment: 109.1 Performed By: #### L 100.0100, L500.2500 ####[facility] [address] [place], [address] Urea nitrogen [Mass/Vol] 15 mg/dL Normal 7-18 [facility] Comment on above: Order Comment: 109.1 Performed By: #### L 100.0100, L500.2500 ####[facility] [address] [place], [address] Basophil percentageOrdered B y: Renard Burgos on 06-24-2024 Basophils/100 WBC (Bld) 0.5 % 0-1 [facility] Blood urea nitrogen (BUN)/cr eatinine ratioOrdered By: Renard Burgos on 06-24-2024 Urea nitrogen/Creatinine [Mass ratio] 24.9 mg/mg High 10-20 [facility] CBC W/Diff, Automatedon -2 Absolute Lymph 1.65 X10 3/uL Normal 0.83-4.51 [facility] Comment on above: Order Comment: 109.1 Performed By: #### L 100.0100, L500.2500 ####[facility] [address] [place], [address] Absolute Neut 10.2 X10 3/uL High 2.0-7.7 [facility] Comment on above: Order Comment: 109.1 Performed By: #### L 100.0100, L500.2500 ####[facility] [address] [place], [address] Basophils/100 WBC (Bld) 0.5 % Normal 0-1 [facility] Comment on above: Order Comment: 109.1 Performed By: #### L 100.0100, L500.2500 ####[facility] [address] [place], [address] Eosinophils/100 WBC (Bld) 0.8 % Normal 0-5 [facility] Comment on above: Order Comment: 109.1 Performed By: #### L 100.0100, L500.2500 ####[facility] [address] [place], [address] Erythrocyte distribution width (RBC) [Ratio] 13.2 % Normal 11.6-14.6 [facility] Comment on above: Order Comment: 109.1 Performed By: #### L 100.0100, L500.2500 ####[facility] [address] [place], [address] Hematocrit (Bld) [Volume fraction] 41.8 % Normal 40-54 [facility] Comment on above: Order Comment: 109.1 Performed By: #### L 100.0100, L500.2500 ####[facility] [address] [place], [address] Hemoglobin (Bld) [Mass/Vol] 13.6 g/dL Normal 13.0-16.5 [facility] Comment on above: Order Comment: 109.1 Performed By: #### L 100.0100, L500.2500 ####[facility] [address] [place], [address] IG% 0.500 Normal 0.0-0.9 [facility] Comment on above: Order Comment: 109.1 Result Comment: IG% - Immature Granulocytes (promyelocytes, myelocytes andmetamyelocytes) > 1% indicates that a LEFT SHIFT is Present. Performed By: #### L 100.0100, L500.2500 ####[facility] [address] [place], [address] Lymphocytes/100 WBC (Bld) 12.8 % Low 19-41 [facility] Comment on above: Order Comment: 109.1 Performed By: #### L 100.0100, L500.2500 ####[facility] [address] [place], [address] MCH (RBC) [Entitic mass] 30.2 pg Normal 27.0-32.0 [facility] Comment on above: Order Comment: 109.1 Performed By: #### L 100.0100, L500.2500 ####[facility] [address] [place], [address] MCHC (RBC) [Mass/Vol] 32.5 g/dL Normal 32-36 [facility] Comment on above: Order Comment: 109.1 Performed By: #### L 100.0100, L500.2500 ####[facility] [address] [place], [address] MCV (RBC) [Entitic vol] 92.7 fL Normal 80-94 [facility] Comment on above: Order Comment: 109.1 Performed By: #### L 100.0100, L500.2500 ####[facility] [address] [place], [address] Monocytes/100 WBC (Bld) 6.4 % Normal 0-10 [facility] Comment on above: Order Comment: 109.1 Performed By: #### L 100.0100, L500.2500 ####[facility] [address] [place], [address] Neutrophils/100 WBC (Bld) 79.0 % High 47-70 [facility] Comment on above: Order Comment: 109.1 Performed By: #### L 100.0100, L500.2500 ####[facility] [address] [place], [address] Nucleated RBC (Bld) [#/Vol] 0 10*3/uL Normal 0-5 [facility] Comment on above: Order Comment: 109.1 Performed By: #### L 100.0100, L500.2500 ####[facility] [address] [place], [address] Platelet mean volume (Bld) [Entitic vol] 11.3 fL Normal 6.2-12.0 [facility] Comment on above: Order Comment: 109.1 Performed By: #### L 100.0100, L500.2500 ####[facility] [address] [place], [address] Platelets (Bld) [#/Vol] 171 10*3/uL Normal 150-450 [facility] Comment on above: Order Comment: 109.1 Performed By: #### L 100.0100, L500.2500 ####[facility] [address] [place], [address] RBC (Bld) [#/Vol] 4.51 10*6/uL Low 4.6-6.2 [facility] Comment on above: Order Comment: 109.1 Performed By: #### L 100.0100, L500.2500 ####[facility] [address] [place], [address] RDW SD 45.1 fl High 35.1-43.9 [facility] Comment on above: Order Comment: 109.1 Performed By: #### L 100.0100, L500.2500 ####[facility] [address] [place], [address] WBC (Bld) [#/Vol] 12.9 10*3/uL High 4.4-11.0 [facility] Comment on above: Order Comment: 109.1 Performed By: #### L 100.0100, L500.2500 ####[facility] [address] [place], [address] CT Chest WO contraston 06-24 Radiology Study observation (narrative) Estefania smith Carbon dioxide measurementOr dered By: Renard Burgos on 06-24-2024 CO2 [Moles/Vol] 24.0 mmol/L 21.0-32.0 [facility] Chloride measurementOrdered By: Renard Burgos on 06-24-2024 Chloride [Moles/Vol] 107 mmol/L 98-107 [facility] Eosinophil percentageOrdered By: Renard Burgos on 06-24-2024 Eosinophils/100 WBC (Bld) 0.8 % 0-5 [facility] Erythrocyte distribution wid th ratioOrdered By: Renard Burgos on 06-24-2024 Erythrocyte distribution width (RBC) [Ratio] 13.2 % 11.6-14.6 [facility] Erythrocyte distribution wid th standard deviationOrdered By: Renard Burgos on 06-24-2024 Erythrocyte distribution width (RBC) [Entitic vol] 45.1 fL High 35.1-43.9 [facility] Erythrocyte distribution width (RBC) [Ratio] 45.1 fl High 35.1-43.9 [facility] Estimated glomerular filtrat ion rate (GFR) AmericanOrdered By: Renard Burgos on 06-24-2024 Estimated GFR (MDRD) Amer 172 mL/min >60 [facility] Comment on above: GFR Calc Glomerular filtration rate ( GFR) estimationOrdered By: Renard Burgos on 06-24-2024 Estimated GFR (MDRD) Non-Af Amer 142 mL/min >60 [facility] Comment on above: Non- GFR Calc GFR/1.73 sq M.predicted among non-blacks MDRD (S/P/Bld) [Vol rate/Area] 142 mL/min/{1.73_m2} >60 [facility] Comment on above: Non- GFR Calc Glucose measurementOrdered B y: Renard Burgos on 06-24-2024 Glucose [Mass/Vol] 101 mg/dL 74-106 [facility] Comment on above: Fasting Glucose resu lt from 100 to 125 mg/dL suggests IMPAIRED HOMEOSTASIS per A.D.A. criteria. Hematocrit Auto (Bld) [Volum e fraction]Ordered By: Renard Burgos on 06-24-2024 Hematocrit (Bld) [Volume fraction] 41.8 % 40-54 [facility] Hemoglobin measurementOrdere d By: Renard Burgos on 06-24-2024 Hemoglobin (Bld) [Mass/Vol] 13.6 g/dL 13.0-16.5 [facility] Immature granulocytes/100 WB C Auto (Bld)Ordered By: Renard Burgos on 06-24-2024 Immature granulocytes/100 WBC (Bld) 0.500 % 0.0-0.9 [facility] Comment on above: IG% - Immature Granu locytes (promyelocytes, myelocytes and metamyelocytes) > 1% indicates that a LEFT SHIFT is Present. Lymphocytes Auto (Unsp spec) [#/Vol]Ordered By: Renard Burgos on 06-24-2024 Lymphocytes (Bld) [#/Vol] 1.65 10*3/uL 0.83-4.51 [facility] Lymphocytes/100 WBC Auto (Un sp spec)Ordered By: Renard Burgos on 06-24-2024 Lymphocytes/100 WBC (Bld) 12.8 % Low 19-41 [facility] MCV (mean corpuscular volume ) determinationOrdered By: Renard Burgos on 06-24-2024 MCV (RBC) [Entitic vol] 92.7 fL 80-94 [facility] Mean corpuscular hemoglobin (MCH) determinationOrdered By: Renard Burgos on 06-24-2024 MCH (RBC) [Entitic mass] 30.2 pg 27.0-32.0 [facility] Mean corpuscular hemoglobin concentration (MCHC) determinationOrdered By: Renard Burgos on 06-24-2024 MCHC (RBC) [Mass/Vol] 32.5 g/dL 32-36 [facility] Mean platelet volume determi nationOrdered By: Renard Burgos on 06-24-2024 Platelet mean volume (Bld) [Entitic vol] 11.3 fL 6.2-12.0 [facility] Monocyte percentageOrdered B y: Renard Burgos on 06-24-2024 Monocytes/100 WBC (Bld) 6.4 % 0-10 [facility] Neutrophil percentageOrdered By: Renard Burgos on 06-24-2024 Neutrophils/100 WBC (Bld) 79.0 % High 47-70 [facility] Nucleated red blood cell per centageOrdered By: Renard Burgos on 06-24-2024 Nucleated RBC/100 WBC (Bld) [Ratio] 0 % 0-5 [facility] Platelet countOrdered By: Garrick Bhatt on 06-24-2024 Platelets (Bld) [#/Vol] 171 10*3/uL 150-450 [facility] Potassium measurementOrdered By: Renard Burgos on 06-24-2024 Potassium [Moles/Vol] 4.1 mmol/L 3.5-5.1 [facility] RBC Auto (Bld) [#/Vol]Ordere d By: Renard Burgos on 06-24-2024 RBC (Bld) [#/Vol] 4.51 10*6/uL Low 4.6-6.2 [facility] Serum anion gap measurementO rdered By: Renard Burgos on 06-24-2024 Anion gap [Moles/Vol] 8 mmol/L 5-15 [facility] Serum or plasma calcium gordy urement (mass/volume)Ordered By: Renard Burgos on 06-24-2024 Calcium [Mass/Vol] 8.3 mg/dL Low 8.5-10.1 [facility] Serum or plasma creatinine m easurement (mass/volume)Ordered By: Renard Burgos on 06-24-2024 Creatinine [Mass/Vol] 0.60 mg/dL Low 0.70-1.30 [facility] Comment on above: The validity of the calculated GFR & GFRAA in patients over 70 years has not been determined. Clinical correlation is essential. Serum or plasma urea nitroge n measurement (mass/volume)Ordered By: Renard Burgos on 06-24-2024 Urea nitrogen [Mass/Vol] 15 mg/dL 7- [facility] Sodium levelOrdered By: Lamine Burgos on 06-24-2024 Sodium [Moles/Vol] 139 mmol/L 136-145 [facility] White blood cell (WBC) count Ordered By: Renard Burgos on 06-24-2024 WBC (Bld) [#/Vol] 12.9 10*3/uL High 4.4-11.0 [facility] Absolute lymphocyte countOrd ered By: Renard Burgos on 06-17-2024 Lymphocytes Auto (Unsp spec) [#/Vol] 2.00 10*3/uL 0.83-4.51 [facility] Absolute neutrophil countOrd ered By: Renard Burgos on 06-17-2024 Neutrophils (Bld) [#/Vol] 5.1 10*3/uL 2.0-7.7 [facility] Automated lymphocyte count a s percentage of total leukocytesOrdered By: Renard Burgos on 06-17-2024 Lymphocytes/100 WBC Auto (Unsp spec) 24.5 % 19-41 [facility] Basophil percentageOrdered B y: Renard Burgos on 06-17-2024 Basophils/100 WBC (Bld) 1.1 % High 0-1 [facility] CBC W/Diff, Automatedon 06-01 Absolute Lymph 2.00 X10 3/uL Normal 0.83-4.51 [facility] Comment on above: Order Comment: 109-1 Performed By: #### L 100.0100 ####[facility] [address] [place], [address] Absolute Neut 5.1 X10 3/uL Normal 2.0-7.7 [facility] Comment on above: Order Comment: 109-1 Performed By: #### L 100.0100 ####[facility] [address] [place], [address] Basophils/100 WBC (Bld) 1.1 % High 0-1 [facility] Comment on above: Order Comment: 109-1 Performed By: #### L 100.0100 ####[facility] [address] [place], [address] Eosinophils/100 WBC (Bld) 3.4 % Normal 0-5 [facility] Comment on above: Order Comment: 109-1 Performed By: #### L 100.0100 ####[facility] [address] [place], [address] Erythrocyte distribution width (RBC) [Ratio] 13.3 % Normal 11.6-14.6 [facility] Comment on above: Order Comment: 109-1 Performed By: #### L 100.0100 ####[facility] [address] [place], [address] Hematocrit (Bld) [Volume fraction] 39.3 % Low 40-54 [facility] Comment on above: Order Comment: 109-1 Performed By: #### L 100.0100 ####[facility] [address] [place], [address] Hemoglobin (Bld) [Mass/Vol] 12.8 g/dL Low 13.0-16.5 [facility] Comment on above: Order Comment: 109-1 Performed By: #### L 100.0100 ####[facility] [address] [place], [address] IG% 0.200 Normal 0.0-0.9 [facility] Comment on above: Order Comment: 109-1 Result Comment: IG% - Immature Granulocytes (promyelocytes, myelocytes andmetamyelocytes) > 1% indicates that a LEFT SHIFT is Present. Performed By: #### L 100.0100 ####[facility] [address] [place], [address] Lymphocytes/100 WBC (Bld) 24.5 % Normal 19-41 [facility] Comment on above: Order Comment: 109-1 Performed By: #### L 100.0100 ####[facility] [address] [place], [address] MCH (RBC) [Entitic mass] 29.6 pg Normal 27.0-32.0 [facility] Comment on above: Order Comment: 109-1 Performed By: #### L 100.0100 ####[facility] [address] [place], [address] MCHC (RBC) [Mass/Vol] 32.6 g/dL Normal 32-36 [facility] Comment on above: Order Comment: 109-1 Performed By: #### L 100.0100 ####[facility] [address] [place], [address] MCV (RBC) [Entitic vol] 90.8 fL Normal 80-94 [facility] Comment on above: Order Comment: 109-1 Performed By: #### L 100.0100 ####[facility] [address] [place], [address] Monocytes/100 WBC (Bld) 8.8 % Normal 0-10 [facility] Comment on above: Order Comment: 109-1 Performed By: #### L 100.0100 ####[facility] [address], [address] Neutrophils/100 WBC (Bld) 62.0 % Normal 47-70 [facility] Comment on above: Order Comment: 109-1 Performed By: #### L 100.0100 ####[facility] [address] [place], [address] Nucleated RBC (Bld) [#/Vol] 0 10*3/uL Normal 0-5 [facility] Comment on above: Order Comment: 109-1 Performed By: #### L 100.0100 ####[facility] [address] [place], [address] Platelet mean volume (Bld) [Entitic vol] 10.9 fL Normal 6.2-12.0 [facility] Comment on above: Order Comment: 109-1 Performed By: #### L 100.0100 ####[facility] [address] [place], [address] Platelets (Bld) [#/Vol] 218 10*3/uL Normal 150-450 [facility] Comment on above: Order Comment: 109-1 Performed By: #### L 100.0100 ####[facility] [address] [place], [address] RBC (Bld) [#/Vol] 4.33 10*6/uL Low 4.6-6.2 [facility] Comment on above: Order Comment: 109-1 Performed By: #### L 100.0100 ####[facility] [address] [place], [address] RDW SD 44.0 fl High 35.1-43.9 [facility] Comment on above: Order Comment: 109-1 Performed By: #### L 100.0100 ####[facility] [address] [place], [address] WBC (Bld) [#/Vol] 8.2 10*3/uL Normal 4.4-11.0 [facility] Comment on above: Order Comment: 109-1 Performed By: #### L 100.0100 ####[facility] [address] [place], [address] Eosinophil percentageOrdered By: Renard Burgos on 06-17-2024 Eosinophils/100 WBC (Bld) 3.4 % 0-5 [facility] Erythrocyte distribution wid th ratioOrdered By: Renard Burgos on 06-17-2024 Erythrocyte distribution width (RBC) [Ratio] 13.3 % 11.6-14.6 [facility] Erythrocyte distribution wid th standard deviationOrdered By: Renard Burgos on 06-17-2024 Erythrocyte distribution width (RBC) [Entitic vol] 44.0 fL High 35.1-43.9 [facility] Erythrocyte distribution width (RBC) [Ratio] 44.0 fl High 35.1-43.9 [facility] Hematocrit Auto (Bld) [Volum e fraction]Ordered By: Renard Burgos on 06-17-2024 Hematocrit (Bld) [Volume fraction] 39.3 % Low 40-54 [facility] Hemoglobin measurementOrdere d By: Renard Burgos on 06-17-2024 Hemoglobin (Bld) [Mass/Vol] 12.8 g/dL Low 13.0-16.5 [facility] Immature granulocytes/100 WB C Auto (Bld)Ordered By: Renard Burgos on 06-17-2024 Immature granulocytes/100 WBC (Bld) 0.200 % 0.0-0.9 [facility] Comment on above: IG% - Immature Granu locytes (promyelocytes, myelocytes and metamyelocytes) > 1% indicates that a LEFT SHIFT is Present. Lymphocytes Auto (Unsp spec) [#/Vol]Ordered By: Renard Burgos on 06-17-2024 Lymphocytes (Bld) [#/Vol] 2.00 10*3/uL 0.83-4.51 [facility] Lymphocytes/100 WBC Auto (Un sp spec)Ordered By: Renard Burgos on 06-17-2024 Lymphocytes/100 WBC (Bld) 24.5 % 19-41 [facility] MCV (mean corpuscular volume ) determinationOrdered By: Renard Burgos on 06-17-2024 MCV (RBC) [Entitic vol] 90.8 fL 80-94 [facility] Mean corpuscular hemoglobin (MCH) determinationOrdered By: Renard Burgos on 06-17-2024 MCH (RBC) [Entitic mass] 29.6 pg 27.0-32.0 [facility] Mean corpuscular hemoglobin concentration (MCHC) determinationOrdered By: Renard Burgos on 06-17-2024 MCHC (RBC) [Mass/Vol] 32.6 g/dL 32-36 [facility] Mean platelet volume determi nationOrdered By: Renard Burgos on 06-17-2024 Platelet mean volume (Bld) [Entitic vol] 10.9 fL 6.2-12.0 [facility] Monocyte percentageOrdered B y: Renard Burgos on 06-17-2024 Monocytes/100 WBC (Bld) 8.8 % 0-10 [facility] Neutrophil percentageOrdered By: Renard Burgos on 06-17-2024 Neutrophils/100 WBC (Bld) 62.0 % 47-70 [facility] Nucleated red blood cell per centageOrdered By: Renard Burgos on 06-17-2024 Nucleated RBC/100 WBC (Bld) [Ratio] 0 % 0-5 [facility] Platelet countOrdered By: Garrick Bhatt on 06-17-2024 Platelets (Bld) [#/Vol] 218 10*3/uL 150-450 [facility] RBC Auto (Bld) [#/Vol]Ordere d By: Renard Burgos on 06-17-2024 RBC (Bld) [#/Vol] 4.33 10*6/uL Low 4.6-6.2 [facility] White blood cell (WBC) count Ordered By: Renard Burgos on 06-17-2024 WBC (Bld) [#/Vol] 8.2 10*3/uL 4.4-11.0 [facility] Absolute lymphocyte countOrd ered By: Renard Burgos on 06-10-2024 Lymphocytes Auto (Unsp spec) [#/Vol] 2.38 10*3/uL 0.83-4.51 [facility] Absolute neutrophil countOrd ered By: Renard Burgos on 06-10-2024 Neutrophils (Bld) [#/Vol] 5.3 10*3/uL 2.0-7.7 [facility] Automated lymphocyte count a s percentage of total leukocytesOrdered By: Renard Burgos on 06-10-2024 Lymphocytes/100 WBC Auto (Unsp spec) 27.5 % 19-41 [facility] Basophil percentageOrdered B y: Renard Burgos on 06-10-2024 Basophils/100 WBC (Bld) 0.7 % 0-1 [facility] CBC W/Diff, Automatedon 06-01 Absolute Lymph 2.38 X10 3/uL Normal 0.83-4.51 [facility] Comment on above: Order Comment: 109.1 Performed By: #### L 100.0100 ####[facility] [address] [place], [address] Absolute Neut 5.3 X10 3/uL Normal 2.0-7.7 [facility] Comment on above: Order Comment: 109.1 Performed By: #### L 100.0100 ####[facility] [address] [place], [address] Basophils/100 WBC (Bld) 0.7 % Normal 0-1 [facility] Comment on above: Order Comment: 109.1 Performed By: #### L 100.0100 ####[facility] [address] [place], [address] Eosinophils/100 WBC (Bld) 0.7 % Normal 0-5 [facility] Comment on above: Order Comment: 109.1 Performed By: #### L 100.0100 ####[facility] [address] [place], [address] Erythrocyte distribution width (RBC) [Ratio] 13.1 % Normal 11.6-14.6 [facility] Comment on above: Order Comment: 109.1 Performed By: #### L 100.0100 ####[facility] [address] [place], [address] Hematocrit (Bld) [Volume fraction] 41.1 % Normal 40-54 [facility] Comment on above: Order Comment: 109.1 Performed By: #### L 100.0100 ####[facility] [address] [place], [address] Hemoglobin (Bld) [Mass/Vol] 13.5 g/dL Normal 13.0-16.5 [facility] Comment on above: Order Comment: 109.1 Performed By: #### L 100.0100 ####[facility] [address] [place], [address] IG% 0.500 Normal 0.0-0.9 [facility] Comment on above: Order Comment: 109.1 Result Comment: IG% - Immature Granulocytes (promyelocytes, myelocytes andmetamyelocytes) > 1% indicates that a LEFT SHIFT is Present. Performed By: #### L 100.0100 ####[facility] [address] [place], [address] Lymphocytes/100 WBC (Bld) 27.5 % Normal 19-41 [facility] Comment on above: Order Comment: 109.1 Performed By: #### L 100.0100 ####[facility] [address] [place], [address] MCH (RBC) [Entitic mass] 30.1 pg Normal 27.0-32.0 [facility] Comment on above: Order Comment: 109.1 Performed By: #### L 100.0100 ####[facility] [address] [place], [address] MCHC (RBC) [Mass/Vol] 32.8 g/dL Normal 32-36 [facility] Comment on above: Order Comment: 109.1 Performed By: #### L 100.0100 ####[facility] [address] [place], [address] MCV (RBC) [Entitic vol] 91.7 fL Normal 80-94 [facility] Comment on above: Order Comment: 109.1 Performed By: #### L 100.0100 ####[facility] [address] [place], [address] Monocytes/100 WBC (Bld) 9.6 % Normal 0-10 [facility] Comment on above: Order Comment: 109.1 Performed By: #### L 100.0100 ####[facility] [address] [place], [address] Neutrophils/100 WBC (Bld) 61.0 % Normal 47-70 [facility] Comment on above: Order Comment: 109.1 Performed By: #### L 100.0100 ####[facility] [address] [place], [address] Nucleated RBC (Bld) [#/Vol] 0 10*3/uL Normal 0-5 [facility] Comment on above: Order Comment: 109.1 Performed By: #### L 100.0100 ####[facility] [address] [place], [address] Platelet mean volume (Bld) [Entitic vol] 11.0 fL Normal 6.2-12.0 [facility] Comment on above: Order Comment: 109.1 Performed By: #### L 100.0100 ####[facility] [address] [place], [address] Platelets (Bld) [#/Vol] 261 10*3/uL Normal 150-450 [facility] Comment on above: Order Comment: 109.1 Performed By: #### L 100.0100 ####[facility] [address] [place], [address] RBC (Bld) [#/Vol] 4.48 10*6/uL Low 4.6-6.2 [facility] Comment on above: Order Comment: 109.1 Performed By: #### L 100.0100 ####[facility] [address] [place], [address] RDW SD 43.2 fl Normal 35.1-43.9 [facility] Comment on above: Order Comment: 109.1 Performed By: #### L 100.0100 ####[facility] [address] [place], [address] WBC (Bld) [#/Vol] 8.6 10*3/uL Normal 4.4-11.0 [facility] Comment on above: Order Comment: 109.1 Performed By: #### L 100.0100 ####[facility] [address] [place], [address] Eosinophil percentageOrdered By: Renard Burgos on 06-10-2024 Eosinophils/100 WBC (Bld) 0.7 % 0-5 [facility] Erythrocyte distribution wid th ratioOrdered By: Renard Burgos on 06-10-2024 Erythrocyte distribution width (RBC) [Ratio] 13.1 % 11.6-14.6 [facility] Erythrocyte distribution wid th standard deviationOrdered By: Renard Burgos on 06-10-2024 Erythrocyte distribution width (RBC) [Entitic vol] 43.2 fL 35.1-43.9 [facility] Erythrocyte distribution width (RBC) [Ratio] 43.2 fl 35.1-43.9 [facility] Hematocrit Auto (Bld) [Volum e fraction]Ordered By: Renard Burgos on 06-10-2024 Hematocrit (Bld) [Volume fraction] 41.1 % 40-54 [facility] Hemoglobin measurementOrdere d By: Renard Burgos on 06-10-2024 Hemoglobin (Bld) [Mass/Vol] 13.5 g/dL 13.0-16.5 [facility] Immature granulocytes/100 WB C Auto (Bld)Ordered By: Renard Burgos on 06-10-2024 Immature granulocytes/100 WBC (Bld) 0.500 % 0.0-0.9 [facility] Comment on above: IG% - Immature Granu locytes (promyelocytes, myelocytes and metamyelocytes) > 1% indicates that a LEFT SHIFT is Present. Lymphocytes Auto (Unsp spec) [#/Vol]Ordered By: Renard Burgos on 06-10-2024 Lymphocytes (Bld) [#/Vol] 2.38 10*3/uL 0.83-4.51 [facility] Lymphocytes/100 WBC Auto (Un sp spec)Ordered By: Renard Burgos on 06-10-2024 Lymphocytes/100 WBC (Bld) 27.5 % 19-41 [facility] MCV (mean corpuscular volume ) determinationOrdered By: Renard Burgos on 06-10-2024 MCV (RBC) [Entitic vol] 91.7 fL 80-94 [facility] Mean corpuscular hemoglobin (MCH) determinationOrdered By: Renard Burgos on 06-10-2024 MCH (RBC) [Entitic mass] 30.1 pg 27.0-32.0 [facility] Mean corpuscular hemoglobin concentration (MCHC) determinationOrdered By: Renard Burgos on 06-10-2024 MCHC (RBC) [Mass/Vol] 32.8 g/dL 32-36 [facility] Mean platelet volume determi nationOrdered By: Renard Burgos on 06-10-2024 Platelet mean volume (Bld) [Entitic vol] 11.0 fL 6.2-12.0 [facility] Monocyte percentageOrdered B y: Renard Burgos on 06-10-2024 Monocytes/100 WBC (Bld) 9.6 % 0-10 [facility] Neutrophil percentageOrdered By: Renard Burgos on 06-10-2024 Neutrophils/100 WBC (Bld) 61.0 % 47-70 [facility] Nucleated red blood cell per centageOrdered By: Renard Burgos on 06-10-2024 Nucleated RBC/100 WBC (Bld) [Ratio] 0 % 0-5 [facility] Platelet countOrdered By: Garrick Bhatt on 06-10-2024 Platelets (Bld) [#/Vol] 261 10*3/uL 150-450 [facility] RBC Auto (Bld) [#/Vol]Ordere d By: Renard Burgos on 06-10-2024 RBC (Bld) [#/Vol] 4.48 10*6/uL Low 4.6-6.2 [facility] Urine Cultureon 06-10-2024 URC Normal [facility] Comment on above: Performed By: #### M 100.2200, L400.0001 ####[facility] [address] [place], [place], [id number] White blood cell (WBC) count Ordered By: Renard Burgos on 06-10-2024 WBC (Bld) [#/Vol] 8.6 10*3/uL 4.4-11.0 [facility] Bilirubin Test strip Ql (U)O rdered By: Renard Burgos on 06-07-2024 Bilirubin Ql (U) Negative Negative [facility] CBC-Complete Blood Cnt No Di ffon 06-07-2024 Erythrocyte distribution width (RBC) [Ratio] 13.0 % Normal 11.6-14.6 [facility] Comment on above: Order Comment: 109-1 Performed By: #### L 100.0500 ####[facility] [address] [place], [address] Hematocrit (Bld) [Volume fraction] 39.3 % Low 40-54 [facility] Comment on above: Order Comment: 109-1 Performed By: #### L 100.0500 ####[facility] [address] [place], [address] Hemoglobin (Bld) [Mass/Vol] 13.0 g/dL Normal 13.0-16.5 [facility] Comment on above: Order Comment: 109-1 Performed By: #### L 100.0500 ####[facility] [address] [place], [address] MCH (RBC) [Entitic mass] 30.2 pg Normal 27.0-32.0 [facility] Comment on above: Order Comment: 109-1 Performed By: #### L 100.0500 ####[facility] [address] [place], [address] MCHC (RBC) [Mass/Vol] 33.1 g/dL Normal 32-36 [facility] Comment on above: Order Comment: 109-1 Performed By: #### L 100.0500 ####[facility] [address] [place], [address] MCV (RBC) [Entitic vol] 91.2 fL Normal 80-94 [facility] Comment on above: Order Comment: 109-1 Performed By: #### L 100.0500 ####[facility] [address] [place], [address] Platelet mean volume (Bld) [Entitic vol] 10.8 fL Normal 6.2-12.0 [facility] Comment on above: Order Comment: 109-1 Performed By: #### L 100.0500 ####[facility] [address] [place], [address] Platelets (Bld) [#/Vol] 251 10*3/uL Normal 150-450 [facility] Comment on above: Order Comment: 109-1 Performed By: #### L 100.0500 ####[facility] [address] [place], [address] RBC (Bld) [#/Vol] 4.31 10*6/uL Low 4.6-6.2 [facility] Comment on above: Order Comment: 109-1 Performed By: #### L 100.0500 ####[facility] [address] [place], [address] RDW SD 43.7 fl Normal 35.1-43.9 [facility] Comment on above: Order Comment: 109-1 Performed By: #### L 100.0500 ####[facility] [address] [place], [address] WBC (Bld) [#/Vol] 9.9 10*3/uL Normal 4.4-11.0 [facility] Comment on above: Order Comment: 109-1 Performed By: #### L 100.0500 ####[facility] [address] [place], [address] Epithelial cells.squamous LM Ql (Urine sed)Ordered By: Renard Burgos on 06-07-2024 Epithelial cells.squamous LM.HPF (Urine sed) [#/Area] 0 /[HPF] 0-5 [facility] Erythrocyte distribution wid th ratioOrdered By: Renard Burgos on 06-07-2024 Erythrocyte distribution width (RBC) [Ratio] 13.0 % 11.6-14.6 [facility] Erythrocyte distribution wid th standard deviationOrdered By: Renard Burgos on 06-07-2024 Erythrocyte distribution width (RBC) [Entitic vol] 43.7 fL 35.1-43.9 [facility] Erythrocyte distribution width (RBC) [Ratio] 43.7 fl 35.1-43.9 [facility] Glucose Ql (U)Ordered By: Garrick Bhatt on 06-07-2024 Urine Glucose (UA) Normal mg/dl Normal [facility] Hematocrit Auto (Bld) [Volum e fraction]Ordered By: Renard Burgos on 06-07-2024 Hematocrit (Bld) [Volume fraction] 39.3 % Low 40-54 [facility] Hemoglobin measurementOrdere d By: Renard Burgos on 06-07-2024 Hemoglobin (Bld) [Mass/Vol] 13.0 g/dL 13.0-16.5 [facility] Ketones Test strip Ql (U)Ord ered By: Renard Burgos on 06-07-2024 Ketones Ql (U) Negative Negative [facility] MCV (mean corpuscular volume ) determinationOrdered By: Renard Burgos on 06-07-2024 MCV (RBC) [Entitic vol] 91.2 fL 80-94 [facility] Mean corpuscular hemoglobin (MCH) determinationOrdered By: Renard Burgos on 06-07-2024 MCH (RBC) [Entitic mass] 30.2 pg 27.0-32.0 [facility] Mean corpuscular hemoglobin concentration (MCHC) determinationOrdered By: Renard Burgos on 06-07-2024 MCHC (RBC) [Mass/Vol] 33.1 g/dL 32-36 [facility] Mean platelet volume determi nationOrdered By: Renard Burgos on 06-07-2024 Platelet mean volume (Bld) [Entitic vol] 10.8 fL 6.2-12.0 [facility] Microscopic analysis of urin e for red blood cells (RBC)Ordered By: Renard Burgos on 06-07-2024 Microscopic analysis of urine for red blood cells (RBC) 0 SEEN /hpf 0-5 [facility] Urine RBC 0 SEEN /hpf 0-5 [facility] Mucus LM Ql (Urine sed)Order ed By: Renard Burgos on 06-07-2024 Mucus Ql (Urine sed) 0 SEEN /hpf [facility] Nitrite Test strip Ql (U)Ord ered By: Renard Burgos on 06-07-2024 Nitrite Ql (U) Negative Negative [facility] Platelet countOrdered By: Garrick Bhatt on 06-07-2024 Platelets (Bld) [#/Vol] 251 10*3/uL 150-450 [facility] Protein Test strip Ql (U)Ord ered By: Renard Burgos on 06-07-2024 Protein Ql (U) 15 mg/dl High Negative [facility] RBC Auto (Bld) [#/Vol]Ordere d By: Renard Burgos on 06-07-2024 RBC (Bld) [#/Vol] 4.31 10*6/uL Low 4.6-6.2 [facility] Squamous epithelial cells de tection in urine sediment by light microscopyOrdered By: Renard Burgos on 06-07-2024 Epithelial cells.squamous LM Ql (Urine sed) 0-5 SEEN /hpf 0-5 [facility] Urinalysis, Completeon 06-07 Mucus Ql (Urine sed) 0 SEEN Normal [facility] Comment on above: Order Comment: CLEAN CATCH Performed By: #### M 100.2200, L400.0001 ####[facility] [address] [place], [address] Urine blood detectionOrdered By: Renard Burgos on 06-07-2024 Urine Occult Blood Negative Negative [facility] Urine clarityOrdered By: Lyubov Burgos on 06-07-2024 Clarity (U) Clear Clear [facility] Urine color determinationOrd ered By: Renard Burgos on 06-07-2024 Color (U) Yellow Yellow [facility] Urine cultureOrdered By: Lyubov Burgos on 06-07-2024 Bacteria identified Cx Nom (U) Pseudomonas aeruginosa Abnormal [facility] Bacteria identified Cx Nom (U) Pseudomonas aeruginosa Abnormal [facility] Urine glucose detectionOrder ed By: Renard Burgos on 06-07-2024 Glucose Ql (U) Normal mg/dl Normal [facility] Urine leukocyte esterase det ection by dipstickOrdered By: Renard Burgos on 06-07-2024 Leukocyte esterase Test strip Ql (U) Negative Negative [facility] Urine pHOrdered By: Renard ocampo on 06-07-2024 pH (U) 7.0 [pH] 5.0 - 8.0 [facility] Urine sediment bacteria coun t by microscopy (number/high power field)Ordered By: Renard Burgos on 06-07-2024 Bacteria LM.HPF (Urine sed) [#/Area] 2 /[HPF] None Seen [facility] Urine sediment yeast count b y microscopy (number/high powered field)Ordered By: Renard Burgos on 06-07-2024 Yeast LM.HPF (Urine sed) [#/Area] 1 /[HPF] None Seen [facility] Urine specific gravity measu rementOrdered By: Renard Burgos on 06-07-2024 Specific gravity (U) [Rel density] 1.010 1.002-1.030 [facility] Urine urobilinogen measureme ntOrdered By: Renard Burgos on 06-07-2024 Urobilinogen Ql (U) 1 mg/dl High Normal [facility] Urobilinogen Ql (U)Ordered B y: Renard Burgos on 06-07-2024 Urobilinogen (U) [Mass/Vol] 1 mg/dL High Normal [facility] White blood cell (WBC) count Ordered By: Renard Burgos on 06-07-2024 WBC (Bld) [#/Vol] 9.9 10*3/uL 4.4-11.0 [facility] White blood cell countOrdere d By: Renard Burgos on 06-07-2024 Urine WBC 0-5 SEEN /hpf 0-5 [facility] White blood cell count 0-5 SEEN /hpf 0-5 [facility] Yeast LM.HPF (Urine sed) [#/ Area]Ordered By: Renard Burgos on 06-07-2024 Urine Yeast 1+ /hpf None Seen [facility] Absolute lymphocyte countOrd ered By: Renard Burgos on 06-03-2024 Lymphocytes Auto (Unsp spec) [#/Vol] 1.94 10*3/uL 0.83-4.51 [facility] Absolute neutrophil countOrd ered By: Renard Burgos on 06-03-2024 Neutrophils (Bld) [#/Vol] 9.5 10*3/uL High 2.0-7.7 [facility] Automated lymphocyte count a s percentage of total leukocytesOrdered By: Renard Burgos on 06-03-2024 Lymphocytes/100 WBC Auto (Unsp spec) 15.7 % Low 19-41 [facility] Basophil percentageOrdered B y: Renard Burgos on 06-03-2024 Basophils/100 WBC (Bld) 0.5 % 0-1 [facility] CBC W/Diff, Automatedon Absolute Lymph 1.94 X10 3/uL Normal 0.83-4.51 [facility] Comment on above: Order Comment: 109-1 Performed By: #### L 100.0100 ####[facility] [address] [place], [address] Absolute Neut 9.5 X10 3/uL High 2.0-7.7 [facility] Comment on above: Order Comment: 109-1 Performed By: #### L 100.0100 ####[facility] [address] [place], [address] Basophils/100 WBC (Bld) 0.5 % Normal 0-1 [facility] Comment on above: Order Comment: 109-1 Performed By: #### L 100.0100 ####[facility] [address] [place], [address] Eosinophils/100 WBC (Bld) 0.3 % Normal 0-5 [facility] Comment on above: Order Comment: 109-1 Performed By: #### L 100.0100 ####[facility] [address] [place], [address] Erythrocyte distribution width (RBC) [Ratio] 13.0 % Normal 11.6-14.6 [facility] Comment on above: Order Comment: 109-1 Performed By: #### L 100.0100 ####[facility] [address] [place], [address] Hematocrit (Bld) [Volume fraction] 40.1 % Normal 40-54 [facility] Comment on above: Order Comment: 109-1 Performed By: #### L 100.0100 ####[facility] [address] [place], [address] Hemoglobin (Bld) [Mass/Vol] 13.2 g/dL Normal 13.0-16.5 [facility] Comment on above: Order Comment: 109-1 Performed By: #### L 100.0100 ####[facility] [address] [place], [address] IG% 0.400 Normal 0.0-0.9 [facility] Comment on above: Order Comment: 109-1 Result Comment: IG% - Immature Granulocytes (promyelocytes, myelocytes andmetamyelocytes) > 1% indicates that a LEFT SHIFT is Present. Performed By: #### L 100.0100 ####[facility] [address] [place], [address] Lymphocytes/100 WBC (Bld) 15.7 % Low 19-41 [facility] Comment on above: Order Comment: 109-1 Performed By: #### L 100.0100 ####[facility] [address] [place], [address] MCH (RBC) [Entitic mass] 30.1 pg Normal 27.0-32.0 [facility] Comment on above: Order Comment: 109-1 Performed By: #### L 100.0100 ####[facility] [address] [place], [address] MCHC (RBC) [Mass/Vol] 32.9 g/dL Normal 32-36 [facility] Comment on above: Order Comment: 109-1 Performed By: #### L 100.0100 ####[facility] [address] [place], [address] MCV (RBC) [Entitic vol] 91.3 fL Normal 80-94 [facility] Comment on above: Order Comment: 109-1 Performed By: #### L 100.0100 ####[facility] [address] [place], [address] Monocytes/100 WBC (Bld) 6.6 % Normal 0-10 [facility] Comment on above: Order Comment: 109-1 Performed By: #### L 100.0100 ####[facility] [address] [place], [address] Neutrophils/100 WBC (Bld) 76.5 % High 47-70 [facility] Comment on above: Order Comment: 109-1 Performed By: #### L 100.0100 ####[facility] [address] [place], [address] Nucleated RBC (Bld) [#/Vol] 0 10*3/uL Normal 0-5 [facility] Comment on above: Order Comment: 109-1 Performed By: #### L 100.0100 ####[facility] [address] [place], [address] Platelet mean volume (Bld) [Entitic vol] 11.1 fL Normal 6.2-12.0 [facility] Comment on above: Order Comment: 109-1 Performed By: #### L 100.0100 ####[facility] [address] [place], [address] Platelets (Bld) [#/Vol] 249 10*3/uL Normal 150-450 [facility] Comment on above: Order Comment: 109-1 Performed By: #### L 100.0100 ####[facility] [address] [place], [address] RBC (Bld) [#/Vol] 4.39 10*6/uL Low 4.6-6.2 [facility] Comment on above: Order Comment: 109-1 Performed By: #### L 100.0100 ####[facility] [address] [place], [address] RDW SD 42.8 fl Normal 35.1-43.9 [facility] Comment on above: Order Comment: 109-1 Performed By: #### L 100.0100 ####[facility] [address] [place], [address] WBC (Bld) [#/Vol] 12.4 10*3/uL High 4.4-11.0 [facility] Comment on above: Order Comment: 109-1 Performed By: #### L 100.0100 ####[facility] [address] [place], [address] Eosinophil percentageOrdered By: Renard Burgos on 06-03-2024 Eosinophils/100 WBC (Bld) 0.3 % 0-5 [facility] Erythrocyte distribution wid th ratioOrdered By: Renard Burgos on 06-03-2024 Erythrocyte distribution width (RBC) [Ratio] 13.0 % 11.6-14.6 [facility] Erythrocyte distribution wid th standard deviationOrdered By: Renard Burgos on 06-03-2024 Erythrocyte distribution width (RBC) [Entitic vol] 42.8 fL 35.1-43.9 [facility] Erythrocyte distribution width (RBC) [Ratio] 42.8 fl 35.1-43.9 [facility] Hematocrit Auto (Bld) [Volum e fraction]Ordered By: Renard Burgos on 06-03-2024 Hematocrit (Bld) [Volume fraction] 40.1 % 40-54 [facility] Hemoglobin measurementOrdere d By: Renard Burgos on 06-03-2024 Hemoglobin (Bld) [Mass/Vol] 13.2 g/dL 13.0-16.5 [facility] Immature granulocytes/100 WB C Auto (Bld)Ordered By: Renard Burgos on 06-03-2024 Immature granulocytes/100 WBC (Bld) 0.400 % 0.0-0.9 [facility] Comment on above: IG% - Immature Granu locytes (promyelocytes, myelocytes and metamyelocytes) > 1% indicates that a LEFT SHIFT is Present. Lymphocytes Auto (Unsp spec) [#/Vol]Ordered By: Renard Burgos on 06-03-2024 Lymphocytes (Bld) [#/Vol] 1.94 10*3/uL 0.83-4.51 [facility] Lymphocytes/100 WBC Auto (Un sp spec)Ordered By: Renard Burgos on 06-03-2024 Lymphocytes/100 WBC (Bld) 15.7 % Low 19-41 [facility] MCV (mean corpuscular volume ) determinationOrdered By: Renard Burgos on 06-03-2024 MCV (RBC) [Entitic vol] 91.3 fL 80-94 [facility] Mean corpuscular hemoglobin (MCH) determinationOrdered By: Renard Burgos on 06-03-2024 MCH (RBC) [Entitic mass] 30.1 pg 27.0-32.0 [facility] Mean corpuscular hemoglobin concentration (MCHC) determinationOrdered By: Renard Burgos on 06-03-2024 MCHC (RBC) [Mass/Vol] 32.9 g/dL 32-36 [facility] Mean platelet volume determi nationOrdered By: Renard Burgos on 06-03-2024 Platelet mean volume (Bld) [Entitic vol] 11.1 fL 6.2-12.0 [facility] Monocyte percentageOrdered B y: Renard Burgos on 06-03-2024 Monocytes/100 WBC (Bld) 6.6 % 0-10 [facility] Neutrophil percentageOrdered By: Renard Burgos on 06-03-2024 Neutrophils/100 WBC (Bld) 76.5 % High 47-70 [facility] Nucleated red blood cell per centageOrdered By: Renard Burgos on 06-03-2024 Nucleated RBC/100 WBC (Bld) [Ratio] 0 % 0-5 [facility] Platelet countOrdered By: Garrick Bhatt on 06-03-2024 Platelets (Bld) [#/Vol] 249 10*3/uL 150-450 [facility] RBC Auto (Bld) [#/Vol]Ordere d By: Renard Burgos on 06-03-2024 RBC (Bld) [#/Vol] 4.39 10*6/uL Low 4.6-6.2 [facility] White blood cell (WBC) count Ordered By: Renard Loretta on 06-03-2024 WBC (Bld) [#/Vol] 12.4 10*3/uL High 4.4-11.0 [facility] Absolute lymphocyte countOrd ered By: Renard Burgos on 05-27-2024 Lymphocytes Auto (Unsp spec) [#/Vol] 1.81 10*3/uL 0.83-4.51 [facility] Absolute neutrophil countOrd ered By: Renard Burgos on 05-27-2024 Neutrophils (Bld) [#/Vol] 5.0 10*3/uL 2.0-7.7 [facility] Automated lymphocyte count a s percentage of total leukocytesOrdered By: Renard Burgos on 05-27-2024 Lymphocytes/100 WBC Auto (Unsp spec) 24.4 % 19-41 [facility] Basophil percentageOrdered B y: Renard Burgos on 05-27-2024 Basophils/100 WBC (Bld) 0.5 % 0-1 [facility] CBC W/Diff, Automatedon 05-02 Absolute Lymph 1.81 X10 3/uL Normal 0.83-4.51 [facility] Comment on above: Order Comment: 109.1 Performed By: #### L 100.0100 ####[facility] [address] [facility] [address] Absolute Neut 5.0 X10 3/uL Normal 2.0-7.7 [facility] Comment on above: Order Comment: 109.1 Performed By: #### L 100.0100 ####[facility] [address] [place], [address] Basophils/100 WBC (Bld) 0.5 % Normal 0-1 [facility] Comment on above: Order Comment: 109.1 Performed By: #### L 100.0100 ####[facility] [address] [place], [address] Eosinophils/100 WBC (Bld) 0.5 % Normal 0-5 [facility] Comment on above: Order Comment: 109.1 Performed By: #### L 100.0100 ####[facility] [address] [place], [address] Erythrocyte distribution width (RBC) [Ratio] 12.8 % Normal 11.6-14.6 [facility] Comment on above: Order Comment: 109.1 Performed By: #### L 100.0100 ####[facility] [address] [place], [address] Hematocrit (Bld) [Volume fraction] 39.8 % Low 40-54 [facility] Comment on above: Order Comment: 109.1 Performed By: #### L 100.0100 ####[facility] [address] [place], [address] Hemoglobin (Bld) [Mass/Vol] 13.2 g/dL Normal 13.0-16.5 [facility] Comment on above: Order Comment: 109.1 Performed By: #### L 100.0100 ####[facility] [address], [address] IG% 0.400 Normal 0.0-0.9 [facility] Comment on above: Order Comment: 109.1 Result Comment: IG% - Immature Granulocytes (promyelocytes, myelocytes andmetamyelocytes) > 1% indicates that a LEFT SHIFT is Present. Performed By: #### L 100.0100 ####[facility] [address] [place], [address] Lymphocytes/100 WBC (Bld) 24.4 % Normal 19-41 [facility] Comment on above: Order Comment: 109.1 Performed By: #### L 100.0100 ####[facility] [address] [place], [address] MCH (RBC) [Entitic mass] 30.2 pg Normal 27.0-32.0 [facility] Comment on above: Order Comment: 109.1 Performed By: #### L 100.0100 ####[facility] [address] [place], [address] MCHC (RBC) [Mass/Vol] 33.2 g/dL Normal 32-36 [facility] Comment on above: Order Comment: 109.1 Performed By: #### L 100.0100 ####[facility] [address] [place], [address] MCV (RBC) [Entitic vol] 91.1 fL Normal 80-94 [facility] Comment on above: Order Comment: 109.1 Performed By: #### L 100.0100 ####[facility] [address] [place], [address] Monocytes/100 WBC (Bld) 7.0 % Normal 0-10 [facility] Comment on above: Order Comment: 109.1 Performed By: #### L 100.0100 ####[facility] [address] [place], [address] Neutrophils/100 WBC (Bld) 67.2 % Normal 47-70 [facility] Comment on above: Order Comment: 109.1 Performed By: #### L 100.0100 ####[facility] [address] [place], [address] Nucleated RBC (Bld) [#/Vol] 0 10*3/uL Normal 0-5 [facility] Comment on above: Order Comment: 109.1 Performed By: #### L 100.0100 ####[facility] [address] [place], [address] Platelet mean volume (Bld) [Entitic vol] 10.3 fL Normal 6.2-12.0 [facility] Comment on above: Order Comment: 109.1 Performed By: #### L 100.0100 ####[facility] [address] [place], [address] Platelets (Bld) [#/Vol] 239 10*3/uL Normal 150-450 [facility] Comment on above: Order Comment: 109.1 Performed By: #### L 100.0100 ####[facility] [address] [place], [address] RBC (Bld) [#/Vol] 4.37 10*6/uL Low 4.6-6.2 [facility] Comment on above: Order Comment: 109.1 Performed By: #### L 100.0100 ####[facility] [address] [place], [address] RDW SD 42.5 fl Normal 35.1-43.9 [facility] Comment on above: Order Comment: 109.1 Performed By: #### L 100.0100 ####[facility] [address] [place], [address] WBC (Bld) [#/Vol] 7.4 10*3/uL Normal 4.4-11.0 [facility] Comment on above: Order Comment: 109.1 Performed By: #### L 100.0100 ####[facility] [address] [place], [address] Eosinophil percentageOrdered By: Renard Burgos on 05-27-2024 Eosinophils/100 WBC (Bld) 0.5 % 0-5 [facility] Erythrocyte distribution wid th ratioOrdered By: Renard Burgos on 05-27-2024 Erythrocyte distribution width (RBC) [Ratio] 12.8 % 11.6-14.6 [facility] Erythrocyte distribution wid th standard deviationOrdered By: Renard Burgos on 05-27-2024 Erythrocyte distribution width (RBC) [Entitic vol] 42.5 fL 35.1-43.9 [facility] Erythrocyte distribution width (RBC) [Ratio] 42.5 fl 35.1-43.9 [facility] Hematocrit Auto (Bld) [Volum e fraction]Ordered By: Renard Burgos on 05-27-2024 Hematocrit (Bld) [Volume fraction] 39.8 % Low 40-54 [facility] Hemoglobin measurementOrdere d By: Renard Burgos on 05-27-2024 Hemoglobin (Bld) [Mass/Vol] 13.2 g/dL 13.0-16.5 [facility] Immature granulocytes/100 WB C Auto (Bld)Ordered By: Renard Burgos on 05-27-2024 Immature granulocytes/100 WBC (Bld) 0.400 % 0.0-0.9 [facility] Comment on above: IG% - Immature Granu locytes (promyelocytes, myelocytes and metamyelocytes) > 1% indicates that a LEFT SHIFT is Present. Lymphocytes Auto (Unsp spec) [#/Vol]Ordered By: Renard Burgos on 05-27-2024 Lymphocytes (Bld) [#/Vol] 1.81 10*3/uL 0.83-4.51 [facility] Lymphocytes/100 WBC Auto (Un sp spec)Ordered By: Renard Burgos on 05-27-2024 Lymphocytes/100 WBC (Bld) 24.4 % 19-41 [facility] MCV (mean corpuscular volume ) determinationOrdered By: Renard Burgos on 05-27-2024 MCV (RBC) [Entitic vol] 91.1 fL 80-94 [facility] Mean corpuscular hemoglobin (MCH) determinationOrdered By: Renard Burgos on 05-27-2024 MCH (RBC) [Entitic mass] 30.2 pg 27.0-32.0 [facility] Mean corpuscular hemoglobin concentration (MCHC) determinationOrdered By: Renard Burgos on 05-27-2024 MCHC (RBC) [Mass/Vol] 33.2 g/dL 32-36 [facility] Mean platelet volume determi nationOrdered By: Renard Burgos on 05-27-2024 Platelet mean volume (Bld) [Entitic vol] 10.3 fL 6.2-12.0 [facility] Monocyte percentageOrdered B y: Renard Burgos on 05-27-2024 Monocytes/100 WBC (Bld) 7.0 % 0-10 [facility] Neutrophil percentageOrdered By: Renard Burgos on 05-27-2024 Neutrophils/100 WBC (Bld) 67.2 % 47-70 [facility] Nucleated red blood cell per centageOrdered By: Renard Burgos on 05-27-2024 Nucleated RBC/100 WBC (Bld) [Ratio] 0 % 0-5 [facility] Platelet countOrdered By: Garrick Bhatt on 05-27-2024 Platelets (Bld) [#/Vol] 239 10*3/uL 150-450 [facility] RBC Auto (Bld) [#/Vol]Ordere d By: Renard Burgos on 05-27-2024 RBC (Bld) [#/Vol] 4.37 10*6/uL Low 4.6-6.2 [facility] White blood cell (WBC) count Ordered By: Renard Burgos on 05-27-2024 WBC (Bld) [#/Vol] 7.4 10*3/uL 4.4-11.0 [facility] Absolute lymphocyte countOrd ered By: Renard Burgos on 05-20-2024 Lymphocytes Auto (Unsp spec) [#/Vol] 1.73 10*3/uL 0.83-4.51 [facility] Absolute neutrophil countOrd ered By: Renard Burgos on 05-20-2024 Neutrophils (Bld) [#/Vol] 7.0 10*3/uL 2.0-7.7 [facility] Automated blood erythrocyte countOrdered By: Renard Burgos on 05-20-2024 RBC (Bld) [#/Vol] 4.74 10*6/uL Normal 4.6-6.2 [facility] Comment on above: Order Comment: 109-1 Performed By: #### L 100.0100 ####[facility] [address] [place], [address] Automated blood hematocrit ( percentage)Ordered By: Renard Burgos on 05-20-2024 Hematocrit (Bld) [Volume fraction] 43.6 % Normal 40-54 [facility] Comment on above: Order Comment: 109-1 Performed By: #### L 100.0100 ####[facility] [address] [place], [address] Automated lymphocyte count a s percentage of total leukocytesOrdered By: Renard Burgos on 05-20-2024 Lymphocytes/100 WBC (Bld) 17.7 % Low -41 [facility] Comment on above: Order Comment: 109-1 Performed By: #### L 100.0100 ####[facility] [address] [place], [address] Lymphocytes/100 WBC Auto (Unsp spec) 17.7 % Low - [facility] Basophil percentageOrdered B y: Renard Burgos on 05-20-2024 Basophils/100 WBC (Bld) 0.5 % Normal 0-1 [facility] Comment on above: Order Comment: 109-1 Performed By: #### L 100.0100 ####[facility] [address] [place], [address] CBC W/Diff, Automatedon 05-02 Absolute Lymph 1.73 X10 3/uL Normal 0.83-4.51 [facility] Comment on above: Order Comment: 109-1 Performed By: #### L 100.0100 ####[facility] [address] [place], [address] Absolute Neut 7.0 X10 3/uL Normal 2.0-7.7 [facility] Comment on above: Order Comment: 109-1 Performed By: #### L 100.0100 ####[facility] [address] [place], [address] IG% 0.500 Normal 0.0-0.9 [facility] Comment on above: Order Comment: 109-1 Result Comment: IG% - Immature Granulocytes (promyelocytes, myelocytes andmetamyelocytes) > 1% indicates that a LEFT SHIFT is Present. Performed By: #### L 100.0100 ####[facility] [address] [place], [address] Nucleated RBC (Bld) [#/Vol] 0 10*3/uL Normal 0-5 [facility] Comment on above: Order Comment: 109-1 Performed By: #### L 100.0100 ####[facility] [address] [place], [address] RDW SD 42.5 fl Normal 35.1-43.9 [facility] Comment on above: Order Comment: 109-1 Performed By: #### L 100.0100 ####[facility] [address] [place], [address] Eosinophil percentageOrdered By: Renard Burgos on 05-20-2024 Eosinophils/100 WBC (Bld) 0.5 % Normal 0-5 [facility] Comment on above: Order Comment: 109-1 Performed By: #### L 100.0100 ####[facility] [address] [place], [address] Erythrocyte distribution wid th ratioOrdered By: Renard Burgos on 05-20-2024 Erythrocyte distribution width (RBC) [Ratio] 12.6 % Normal 11.6-14.6 [facility] Comment on above: Order Comment: 109-1 Performed By: #### L 100.0100 ####[facility] [address] [place], [address] Erythrocyte distribution wid th standard deviationOrdered By: Renard Burgos on 05-20-2024 Erythrocyte distribution width (RBC) [Entitic vol] 42.5 fL 35.1-43.9 [facility] Erythrocyte distribution width (RBC) [Ratio] 42.5 fl 35.1-43.9 [facility] Hemoglobin measurementOrdere d By: Renard Burgos on 05-20-2024 Hemoglobin (Bld) [Mass/Vol] 14.4 g/dL Normal 13.0-16.5 [facility] Comment on above: Order Comment: 109-1 Performed By: #### L 100.0100 ####[facility] [address] [place], [address] Immature granulocytes/100 WB C Auto (Bld)Ordered By: Renard Burgos on 05-20-2024 Immature granulocytes/100 WBC (Bld) 0.500 % 0.0-0.9 [facility] Comment on above: IG% - Immature Granu locytes (promyelocytes, myelocytes and metamyelocytes) > 1% indicates that a LEFT SHIFT is Present. Lymphocytes Auto (Unsp spec) [#/Vol]Ordered By: Renard Burgos on 05-20-2024 Lymphocytes (Bld) [#/Vol] 1.73 10*3/uL 0.83-4.51 [facility] MCV (mean corpuscular volume ) determinationOrdered By: Renard Burgos on 05-20-2024 MCV (RBC) [Entitic vol] 92.0 fL Normal 80-94 [facility] Comment on above: Order Comment: 109-1 Performed By: #### L 100.0100 ####[facility] [address] [place], [address] Mean corpuscular hemoglobin (MCH) determinationOrdered By: Renard Burgos on 05-20-2024 MCH (RBC) [Entitic mass] 30.4 pg Normal 27.0-32.0 [facility] Comment on above: Order Comment: 109-1 Performed By: #### L 100.0100 ####[facility] [address] [place], [place], [phone] Mean corpuscular hemoglobin concentration (MCHC) determinationOrdered By: Renard Burgos on 05-20-2024 MCHC (RBC) [Mass/Vol] 33.0 g/dL Normal 32-36 [facility] Comment on above: Order Comment: 109-1 Performed By: #### L 100.0100 ####[facility] [address] [place], [place], [phone] Mean platelet volume determi nationOrdered By: Renard Burgos on 05-20-2024 Platelet mean volume (Bld) [Entitic vol] 10.7 fL Normal 6.2-12.0 [facility] Comment on above: Order Comment: 109-1 Performed By: #### L 100.0100 ####[facility] [address] [place], [address] Monocyte percentageOrdered B y: Renard Burgos on 05-20-2024 Monocytes/100 WBC (Bld) 9.4 % Normal 0-10 [facility] Comment on above: Order Comment: 109-1 Performed By: #### L 100.0100 ####[facility] [address] [place], [address] Neutrophil percentageOrdered By: Renard Burgos on 05-20-2024 Neutrophils/100 WBC (Bld) 71.4 % High 47-70 [facility] Comment on above: Order Comment: 109-1 Performed By: #### L 100.0100 ####[facility] [address] [place], [address] Nucleated red blood cell per centageOrdered By: Renard Burgos on 05-20-2024 Nucleated RBC/100 WBC (Bld) [Ratio] 0 % 0-5 [facility] Platelet countOrdered By: Garirck Bhatt on 05-20-2024 Platelets (Bld) [#/Vol] 239 10*3/uL Normal 150-450 [facility] Comment on above: Order Comment: 109-1 Performed By: #### L 100.0100 ####[facility] [address] [place], [address] White blood cell (WBC) count Ordered By: Renard Burgos on 05-20-2024 WBC (Bld) [#/Vol] 9.8 10*3/uL Normal 4.4-11.0 [facility] Comment on above: Order Comment: 109-1 Performed By: #### L 100.0100 ####[facility] [address] [place], [address] Absolute lymphocyte countOrd ered By: Renard Burgos on 05-13-2024 Lymphocytes Auto (Unsp spec) [#/Vol] 2.10 10*3/uL 0.83-4.51 [facility] Absolute neutrophil countOrd ered By: Renard Burgos on 05-13-2024 Neutrophils (Bld) [#/Vol] 6.2 10*3/uL 2.0-7.7 [facility] Automated lymphocyte count a s percentage of total leukocytesOrdered By: Renard Hensleyrustam on 05-13-2024 Lymphocytes/100 WBC Auto (Unsp spec) 22.8 % 19-41 [facility] Basophil percentageOrdered B y: Renard Hensleyrustam on 05-13-2024 Basophils/100 WBC (Bld) 0.5 % 0-1 [facility] CBC W/Diff, Automatedon 05-01 Absolute Lymph 2.10 X10 3/uL Normal 0.83-4.51 [facility] Comment on above: Order Comment: 109 Performed By: #### L 100.0100 ####[facility] [address] [place], [address] Absolute Neut 6.2 X10 3/uL Normal 2.0-7.7 [facility] Comment on above: Order Comment: 109 Performed By: #### L 100.0100 ####[facility] [address] [place], [address] Basophils/100 WBC (Bld) 0.5 % Normal 0-1 [facility] Comment on above: Order Comment: 109 Performed By: #### L 100.0100 ####[facility] [address] [place], [address] Eosinophils/100 WBC (Bld) 0.5 % Normal 0-5 [facility] Comment on above: Order Comment: 109 Performed By: #### L 100.0100 ####[facility] [address] [place], [address] Erythrocyte distribution width (RBC) [Ratio] 12.9 % Normal 11.6-14.6 [facility] Comment on above: Order Comment: 109 Performed By: #### L 100.0100 ####[facility] [address] [place], [address] Hematocrit (Bld) [Volume fraction] 42.5 % Normal 40-54 [facility] Comment on above: Order Comment: 109 Performed By: #### L 100.0100 ####[facility] [address] [place], [address] Hemoglobin (Bld) [Mass/Vol] 14.2 g/dL Normal 13.0-16.5 [facility] Comment on above: Order Comment: 109 Performed By: #### L 100.0100 ####[facility] [address] [place], [address] IG% 0.300 Normal 0.0-0.9 [facility] Comment on above: Order Comment: 109 Result Comment: IG% - Immature Granulocytes (promyelocytes, myelocytes andmetamyelocytes) > 1% indicates that a LEFT SHIFT is Present. Performed By: #### L 100.0100 ####[facility] [address] [place], [address] Lymphocytes/100 WBC (Bld) 22.8 % Normal 19-41 [facility] Comment on above: Order Comment: 109 Performed By: #### L 100.0100 ####[facility] [address] [place], [address] MCH (RBC) [Entitic mass] 30.3 pg Normal 27.0-32.0 [facility] Comment on above: Order Comment: 109 Performed By: #### L 100.0100 ####[facility] [address] [place], [address] MCHC (RBC) [Mass/Vol] 33.4 g/dL Normal 32-36 [facility] Comment on above: Order Comment: 109 Performed By: #### L 100.0100 ####[facility] [address] [place], [address] MCV (RBC) [Entitic vol] 90.6 fL Normal 80-94 [facility] Comment on above: Order Comment: 109 Performed By: #### L 100.0100 ####[facility] [address] [place], [address] Monocytes/100 WBC (Bld) 8.7 % Normal 0-10 [facility] Comment on above: Order Comment: 109 Performed By: #### L 100.0100 ####[facility] [address] [place], [address] Neutrophils/100 WBC (Bld) 67.2 % Normal 47-70 [facility] Comment on above: Order Comment: 109 Performed By: #### L 100.0100 ####[facility] [address] [place], [address] Nucleated RBC (Bld) [#/Vol] 0 10*3/uL Normal 0-5 [facility] Comment on above: Order Comment: 109 Performed By: #### L 100.0100 ####[facility] [address] [place], [address] Platelet mean volume (Bld) [Entitic vol] 11.1 fL Normal 6.2-12.0 [facility] Comment on above: Order Comment: 109 Performed By: #### L 100.0100 ####[facility] [address] [place], [address] Platelets (Bld) [#/Vol] 218 10*3/uL Normal 150-450 [facility] Comment on above: Order Comment: 109 Performed By: #### L 100.0100 ####[facility] [address] [place], [address] RBC (Bld) [#/Vol] 4.69 10*6/uL Normal 4.6-6.2 [facility] Comment on above: Order Comment: 109 Performed By: #### L 100.0100 ####[facility] [address] [place], [address] RDW SD 42.3 fl Normal 35.1-43.9 [facility] Comment on above: Order Comment: 109 Performed By: #### L 100.0100 ####[facility] [address] [place], [address] WBC (Bld) [#/Vol] 9.2 10*3/uL Normal 4.4-11.0 [facility] Comment on above: Order Comment: 109 Performed By: #### L 100.0100 ####[facility] [address] [place], [address] Eosinophil percentageOrdered By: Renard Burgos on 05-13-2024 Eosinophils/100 WBC (Bld) 0.5 % 0-5 [facility] Erythrocyte distribution wid th ratioOrdered By: Renard Burgos on 05-13-2024 Erythrocyte distribution width (RBC) [Ratio] 12.9 % 11.6-14.6 [facility] Erythrocyte distribution wid th standard deviationOrdered By: Renard Burgos on 05-13-2024 Erythrocyte distribution width (RBC) [Entitic vol] 42.3 fL 35.1-43.9 [facility] Erythrocyte distribution width (RBC) [Ratio] 42.3 fl 35.1-43.9 [facility] Hematocrit Auto (Bld) [Volum e fraction]Ordered By: Renard Burgos on 05-13-2024 Hematocrit (Bld) [Volume fraction] 42.5 % 40-54 [facility] Hemoglobin measurementOrdere d By: Renard Burgos on 05-13-2024 Hemoglobin (Bld) [Mass/Vol] 14.2 g/dL 13.0-16.5 [facility] Immature granulocytes/100 WB C Auto (Bld)Ordered By: Renard Burgos on 05-13-2024 Immature granulocytes/100 WBC (Bld) 0.300 % 0.0-0.9 [facility] Comment on above: IG% - Immature Granu locytes (promyelocytes, myelocytes and metamyelocytes) > 1% indicates that a LEFT SHIFT is Present. Lymphocytes Auto (Unsp spec) [#/Vol]Ordered By: Renard Burgos on 05-13-2024 Lymphocytes (Bld) [#/Vol] 2.10 10*3/uL 0.83-4.51 [facility] Lymphocytes/100 WBC Auto (Un sp spec)Ordered By: Renard Burgos on 05-13-2024 Lymphocytes/100 WBC (Bld) 22.8 % 19-41 [facility] MCV (mean corpuscular volume ) determinationOrdered By: Renard Burgos on 05-13-2024 MCV (RBC) [Entitic vol] 90.6 fL 80-94 [facility] Mean corpuscular hemoglobin (MCH) determinationOrdered By: Renard Burgos on 05-13-2024 MCH (RBC) [Entitic mass] 30.3 pg 27.0-32.0 [facility] Mean corpuscular hemoglobin concentration (MCHC) determinationOrdered By: Renard Burgos on 05-13-2024 MCHC (RBC) [Mass/Vol] 33.4 g/dL 32-36 [facility] Mean platelet volume determi nationOrdered By: Renard Burgos on 05-13-2024 Platelet mean volume (Bld) [Entitic vol] 11.1 fL 6.2-12.0 [facility] Monocyte percentageOrdered B y: Renard Burgos on 05-13-2024 Monocytes/100 WBC (Bld) 8.7 % 0-10 [facility] Neutrophil percentageOrdered By: Renard Burgos on 05-13-2024 Neutrophils/100 WBC (Bld) 67.2 % 47-70 [facility] Nucleated red blood cell per centageOrdered By: Renard Burgos on 05-13-2024 Nucleated RBC/100 WBC (Bld) [Ratio] 0 % 0-5 [facility] Platelet countOrdered By: Garrick Bhatt on 05-13-2024 Platelets (Bld) [#/Vol] 218 10*3/uL 150-450 [facility] RBC Auto (Bld) [#/Vol]Ordere d By: Renard Burgos on 05-13-2024 RBC (Bld) [#/Vol] 4.69 10*6/uL 4.6-6.2 [facility] White blood cell (WBC) count Ordered By: Renard Burgos on 05-13-2024 WBC (Bld) [#/Vol] 9.2 10*3/uL 4.4-11.0 [facility] Absolute neutrophil countOrd ered By: Renard Burgos on 05-06-2024 Neutrophils (Bld) [#/Vol] 5.9 10*3/uL 2.0-7.7 [facility] Automated blood erythrocyte countOrdered By: Renard Burgos on 05-06-2024 RBC (Bld) [#/Vol] 4.85 10*6/uL Normal 4.6-6.2 [facility] Comment on above: Order Comment: 109-1 Performed By: #### L 100.0100 ####[facility] [address] [place], [place], [address] Automated blood hematocrit ( percentage)Ordered By: Renard Burgos on 05-06-2024 Hematocrit (Bld) [Volume fraction] 45.0 % Normal 40-54 [facility] Comment on above: Order Comment: 109-1 Performed By: #### L 100.0100 ####[facility] [address] [place], [place], [address] Automated lymphocyte count a s percentage of total leukocytesOrdered By: Renard Burgos on 05-06-2024 Lymphocytes/100 WBC (Bld) 24.4 % Normal 19-41 [facility] Comment on above: Order Comment: 109-1 Performed By: #### L 100.0100 ####[facility] [address] [place], [place], [address] Basophil percentageOrdered B y: Renard Burgos on 05-06-2024 Basophils/100 WBC (Bld) 0.5 % Normal 0-1 [facility] Comment on above: Order Comment: 109-1 Performed By: #### L 100.0100 ####[facility] [address] [place], [address] CBC W/Diff, Automatedon - Absolute Lymph 2.22 X10 3/uL Normal 0.83-4.51 [facility] Comment on above: Order Comment: 109-1 Performed By: #### L 100.0100 ####[facility] [address] [place], [address] Absolute Neut 5.9 X10 3/uL Normal 2.0-7.7 [facility] Comment on above: Order Comment: 109-1 Performed By: #### L 100.0100 ####[facility] [address] [place], [address] IG% 0.500 Normal 0.0-0.9 [facility] Comment on above: Order Comment: 109-1 Result Comment: IG% - Immature Granulocytes (promyelocytes, myelocytes andmetamyelocytes) > 1% indicates that a LEFT SHIFT is Present. Performed By: #### L 100.0100 ####[facility] [address] [place], [address] Nucleated RBC (Bld) [#/Vol] 0 10*3/uL Normal 0-5 [facility] Comment on above: Order Comment: 109-1 Performed By: #### L 100.0100 ####[facility] [address] [place], [address] RDW SD 43.9 fl Normal 35.1-43.9 [facility] Comment on above: Order Comment: 109-1 Performed By: #### L 100.0100 ####[facility] [address] [place], [address] Eosinophil percentageOrdered By: Renard Burgos on 05-06-2024 Eosinophils/100 WBC (Bld) 0.4 % Normal 0-5 [facility] Comment on above: Order Comment: 109-1 Performed By: #### L 100.0100 ####[facility] [address] [place], [place], [address] Erythrocyte distribution wid th ratioOrdered By: eRnard Burgos on 05-06-2024 Erythrocyte distribution width (RBC) [Ratio] 13.0 % Normal 11.6-14.6 [facility] Comment on above: Order Comment: 109-1 Performed By: #### L 100.0100 ####[facility] [address] [place], [place], [address] Erythrocyte distribution wid th standard deviationOrdered By: Renard Burgos on 05-06-2024 Erythrocyte distribution width (RBC) [Entitic vol] 43.9 fL 35.1-43.9 [facility] Hemoglobin measurementOrdere d By: Renard Burgos on 05-06-2024 Hemoglobin (Bld) [Mass/Vol] 14.5 g/dL Normal 13.0-16.5 [facility] Comment on above: Order Comment: 109-1 Performed By: #### L 100.0100 ####[facility] [address] [place], [place], [address] Immature granulocytes/100 WB C Auto (Bld)Ordered By: Renard Burgos on 05-06-2024 Immature granulocytes/100 WBC (Bld) 0.500 % 0.0-0.9 [facility] Comment on above: IG% - Immature Granu locytes (promyelocytes, myelocytes and metamyelocytes) > 1% indicates that a LEFT SHIFT is Present. Lymphocytes Auto (Unsp spec) [#/Vol]Ordered By: Renard Burgos on 05-06-2024 Lymphocytes (Bld) [#/Vol] 2.22 10*3/uL 0.83-4.51 [facility] MCV (mean corpuscular volume ) determinationOrdered By: Renard Burgos on 05-06-2024 MCV (RBC) [Entitic vol] 92.8 fL Normal 80-94 [facility] Comment on above: Order Comment: 109-1 Performed By: #### L 100.0100 ####[facility] [address] [place], [address] Mean corpuscular hemoglobin (MCH) determinationOrdered By: Renard Burgos on 05-06-2024 MCH (RBC) [Entitic mass] 29.9 pg Normal 27.0-32.0 [facility] Comment on above: Order Comment: 109-1 Performed By: #### L 100.0100 ####[facility] [address] [place], [place], [phone] Mean corpuscular hemoglobin concentration (MCHC) determinationOrdered By: Renard Burgos on 05-06-2024 MCHC (RBC) [Mass/Vol] 32.2 g/dL Normal 32-36 [facility] Comment on above: Order Comment: 109-1 Performed By: #### L 100.0100 ####[facility] [address] [place], [place], [phone] Mean platelet volume determi nationOrdered By: Renard Burgos on 05-06-2024 Platelet mean volume (Bld) [Entitic vol] 11.4 fL Normal 6.2-12.0 [facility] Comment on above: Order Comment: 109-1 Performed By: #### L 100.0100 ####[facility] [address] [place], [place], [phone] Monocyte percentageOrdered B y: Renard Burgos on 05-06-2024 Monocytes/100 WBC (Bld) 9.7 % Normal 0-10 [facility] Comment on above: Order Comment: 109-1 Performed By: #### L 100.0100 ####[facility] [address] [place], [address] Neutrophil percentageOrdered By: Renard Burgos on 05-06-2024 Neutrophils/100 WBC (Bld) 64.5 % Normal 47-70 [facility] Comment on above: Order Comment: 109-1 Performed By: #### L 100.0100 ####[facility] [address] [place], [address] Nucleated red blood cell per centageOrdered By: Renard Burgos on 05-06-2024 Nucleated RBC/100 WBC (Bld) [Ratio] 0 % 0-5 [facility] Platelet countOrdered By: Garrick Bhatt on 05-06-2024 Platelets (Bld) [#/Vol] 201 10*3/uL Normal 150-450 [facility] Comment on above: Order Comment: 109-1 Performed By: #### L 100.0100 ####[facility] [address] [place], [place], [address] White blood cell (WBC) count Ordered By: Renard Burgos on 05-06-2024 WBC (Bld) [#/Vol] 9.1 10*3/uL Normal 4.4-11.0 [facility] Comment on above: Order Comment: 109-1 Performed By: #### L 100.0100 ####[facility] [address] [place], [place], [phone] 36on 05-03-2024 36 Gissel is calling to let Dr. Burgos know that the medication he prescribed he not certified, she is going to fax the information to the office. [phone] Normal [facility] Absolute neutrophil countOrd ered By: Renard Burgos on 04-29-2024 Neutrophils (Bld) [#/Vol] 6.3 10*3/uL 2.0-7.7 [facility] Basophil percentageOrdered B y: Renard Burgos on 04-29-2024 Basophils/100 WBC (Bld) 0.4 % 0-1 [facility] CBC W/Diff, Automatedon 04-02 Absolute Lymph 2.11 X10 3/uL Normal 0.83-4.51 [facility] Comment on above: Order Comment: 109.1 Performed By: #### L 100.0100 ####[facility] [address] [place], [place], [address] Absolute Neut 6.3 X10 3/uL Normal 2.0-7.7 [facility] Comment on above: Order Comment: 109.1 Performed By: #### L 100.0100 ####[facility] [address] [place], [address] Basophils/100 WBC (Bld) 0.4 % Normal 0-1 [facility] Comment on above: Order Comment: 109.1 Performed By: #### L 100.0100 ####[facility] [address], [address] Eosinophils/100 WBC (Bld) 0.4 % Normal 0-5 [facility] Comment on above: Order Comment: 109.1 Performed By: #### L 100.0100 ####[facility] [address] [place], [address] Erythrocyte distribution width (RBC) [Ratio] 12.6 % Normal 11.6-14.6 [facility] Comment on above: Order Comment: 109.1 Performed By: #### L 100.0100 ####[facility] [address] [place], [address] Hematocrit (Bld) [Volume fraction] 41.6 % Normal 40-54 [facility] Comment on above: Order Comment: 109.1 Performed By: #### L 100.0100 ####[facility] [address] [place], [address] Hemoglobin (Bld) [Mass/Vol] 13.7 g/dL Normal 13.0-16.5 [facility] Comment on above: Order Comment: 109.1 Performed By: #### L 100.0100 ####[facility] [address] [place], [address] IG% 0.400 Normal 0.0-0.9 [facility] Comment on above: Order Comment: 109.1 Result Comment: IG% - Immature Granulocytes (promyelocytes, myelocytes andmetamyelocytes) > 1% indicates that a LEFT SHIFT is Present. Performed By: #### L 100.0100 ####[facility] [address] [place], [address] Lymphocytes/100 WBC (Bld) 22.6 % Normal 19-41 [facility] Comment on above: Order Comment: 109.1 Performed By: #### L 100.0100 ####[facility] [address] [place], [address] MCH (RBC) [Entitic mass] 30.1 pg Normal 27.0-32.0 [facility] Comment on above: Order Comment: 109.1 Performed By: #### L 100.0100 ####[facility] [address] [place], [address] MCHC (RBC) [Mass/Vol] 32.9 g/dL Normal 32-36 [facility] Comment on above: Order Comment: 109.1 Performed By: #### L 100.0100 ####[facility] [address] [place], [address] MCV (RBC) [Entitic vol] 91.4 fL Normal 80-94 [facility] Comment on above: Order Comment: 109.1 Performed By: #### L 100.0100 ####[facility] [address] [place], [address] Monocytes/100 WBC (Bld) 9.3 % Normal 0-10 [facility] Comment on above: Order Comment: 109.1 Performed By: #### L 100.0100 ####[facility] [address] [place], [address] Neutrophils/100 WBC (Bld) 66.9 % Normal 47-70 [facility] Comment on above: Order Comment: 109.1 Performed By: #### L 100.0100 ####[facility] [address] [place], [address] Nucleated RBC (Bld) [#/Vol] 0 10*3/uL Normal 0-5 [facility] Comment on above: Order Comment: 109.1 Performed By: #### L 100.0100 ####[facility] [address] [place], [address] Platelet mean volume (Bld) [Entitic vol] 11.0 fL Normal 6.2-12.0 [facility] Comment on above: Order Comment: 109.1 Performed By: #### L 100.0100 ####[facility] [address] [place], [address] Platelets (Bld) [#/Vol] 211 10*3/uL Normal 150-450 [facility] Comment on above: Order Comment: 109.1 Performed By: #### L 100.0100 ####[facility] [address] [place], [address] RBC (Bld) [#/Vol] 4.55 10*6/uL Low 4.6-6.2 [facility] Comment on above: Order Comment: 109.1 Performed By: #### L 100.0100 ####[facility] [address] [place], [address] RDW SD 41.5 fl Normal 35.1-43.9 [facility] Comment on above: Order Comment: 109.1 Performed By: #### L 100.0100 ####[facility] [address] [place], [address] WBC (Bld) [#/Vol] 9.4 10*3/uL Normal 4.4-11.0 [facility] Comment on above: Order Comment: 109.1 Performed By: #### L 100.0100 ####[facility] [address] [place], [address] Eosinophil percentageOrdered By: Renard Burgos on 04-29-2024 Eosinophils/100 WBC (Bld) 0.4 % 0-5 [facility] Erythrocyte distribution wid th ratioOrdered By: Renard Burgos on 04-29-2024 Erythrocyte distribution width (RBC) [Ratio] 12.6 % 11.6-14.6 [facility] Erythrocyte distribution wid th standard deviationOrdered By: Renard Burgos on 04-29-2024 Erythrocyte distribution width (RBC) [Entitic vol] 41.5 fL 35.1-43.9 [facility] Hematocrit Auto (Bld) [Volum e fraction]Ordered By: Renard Burgos on 04-29-2024 Hematocrit (Bld) [Volume fraction] 41.6 % 40-54 [facility] Hemoglobin measurementOrdere d By: Renard Burgos on 04-29-2024 Hemoglobin (Bld) [Mass/Vol] 13.7 g/dL 13.0-16.5 [facility] Immature granulocytes/100 WB C Auto (Bld)Ordered By: Renard Burgos on 04-29-2024 Immature granulocytes/100 WBC (Bld) 0.400 % 0.0-0.9 [facility] Comment on above: IG% - Immature Granu locytes (promyelocytes, myelocytes and metamyelocytes) > 1% indicates that a LEFT SHIFT is Present. Lymphocytes Auto (Unsp spec) [#/Vol]Ordered By: Renard Burgos on 04-29-2024 Lymphocytes (Bld) [#/Vol] 2.11 10*3/uL 0.83-4.51 [facility] Lymphocytes/100 WBC Auto (Un sp spec)Ordered By: Renard Burgos on 04-29-2024 Lymphocytes/100 WBC (Bld) 22.6 % 19-41 [facility] MCV (mean corpuscular volume ) determinationOrdered By: Renard Burgos on 04-29-2024 MCV (RBC) [Entitic vol] 91.4 fL 80-94 [facility] Mean corpuscular hemoglobin (MCH) determinationOrdered By: Renard Burgos on 04-29-2024 MCH (RBC) [Entitic mass] 30.1 pg 27.0-32.0 [facility] Mean corpuscular hemoglobin concentration (MCHC) determinationOrdered By: Renard Burgos on 04-29-2024 MCHC (RBC) [Mass/Vol] 32.9 g/dL 32-36 [facility] Mean platelet volume determi nationOrdered By: Renard Burgos on 04-29-2024 Platelet mean volume (Bld) [Entitic vol] 11.0 fL 6.2-12.0 [facility] Monocyte percentageOrdered B y: Renard Burgos on 04-29-2024 Monocytes/100 WBC (Bld) 9.3 % 0-10 [facility] Neutrophil percentageOrdered By: Renard Burgos on 04-29-2024 Neutrophils/100 WBC (Bld) 66.9 % 47-70 [facility] Nucleated red blood cell per centageOrdered By: Renard Burgso on 04-29-2024 Nucleated RBC/100 WBC (Bld) [Ratio] 0 % 0-5 [facility] Platelet countOrdered By: Garrick Bhatt on 04-29-2024 Platelets (Bld) [#/Vol] 211 10*3/uL 150-450 [facility] RBC Auto (Bld) [#/Vol]Ordere d By: Renard Burgos on 04-29-2024 RBC (Bld) [#/Vol] 4.55 10*6/uL Low 4.6-6.2 [facility] White blood cell (WBC) count Ordered By: Renard Burgos on 04-29-2024 WBC (Bld) [#/Vol] 9.4 10*3/uL 4.4-11.0 [facility] Absolute neutrophil countOrd ered By: Renard Burgos on 04-22-2024 Neutrophils (Bld) [#/Vol] 8.1 10*3/uL High 2.0-7.7 [facility] Basophil percentageOrdered B y: Renard Burgos on 04-22-2024 Basophils/100 WBC (Bld) 0.5 % 0-1 [facility] CBC W/Diff, Automatedon 04-01 Absolute Lymph 2.61 X10 3/uL Normal 0.83-4.51 [facility] Comment on above: Order Comment: 109-1 Performed By: #### L 100.0100 ####[facility] [address] [place], [address] Absolute Neut 8.1 X10 3/uL High 2.0-7.7 [facility] Comment on above: Order Comment: 109-1 Performed By: #### L 100.0100 ####[facility] [address] [place], [address] Basophils/100 WBC (Bld) 0.5 % Normal 0-1 [facility] Comment on above: Order Comment: 109-1 Performed By: #### L 100.0100 ####[facility] [address] [place], [address] Eosinophils/100 WBC (Bld) 0.4 % Normal 0-5 [facility] Comment on above: Order Comment: 109-1 Performed By: #### L 100.0100 ####[facility] [address] [place], [address] Erythrocyte distribution width (RBC) [Ratio] 12.6 % Normal 11.6-14.6 [facility] Comment on above: Order Comment: 109-1 Performed By: #### L 100.0100 ####[facility] [address] [place], [address] Hematocrit (Bld) [Volume fraction] 44.5 % Normal 40-54 [facility] Comment on above: Order Comment: 109-1 Performed By: #### L 100.0100 ####[facility] [address] [place], [address] Hemoglobin (Bld) [Mass/Vol] 14.3 g/dL Normal 13.0-16.5 [facility] Comment on above: Order Comment: 109-1 Performed By: #### L 100.0100 ####[facility] [address] [place], [address] IG% 0.300 Normal 0.0-0.9 [facility] Comment on above: Order Comment: 109-1 Result Comment: IG% - Immature Granulocytes (promyelocytes, myelocytes andmetamyelocytes) > 1% indicates that a LEFT SHIFT is Present. Performed By: #### L 100.0100 ####[facility] [address] [place], [address] Lymphocytes/100 WBC (Bld) 22.0 % Normal 19-41 [facility] Comment on above: Order Comment: 109-1 Performed By: #### L 100.0100 ####[facility] [address] [place], [address] MCH (RBC) [Entitic mass] 29.7 pg Normal 27.0-32.0 [facility] Comment on above: Order Comment: 109-1 Performed By: #### L 100.0100 ####[facility] [address] [place], [address] MCHC (RBC) [Mass/Vol] 32.1 g/dL Normal 32-36 [facility] Comment on above: Order Comment: 109-1 Performed By: #### L 100.0100 ####[facility] [address] [place], [address] MCV (RBC) [Entitic vol] 92.5 fL Normal 80-94 [facility] Comment on above: Order Comment: 109-1 Performed By: #### L 100.0100 ####[facility] [address] [place], [address] Monocytes/100 WBC (Bld) 8.3 % Normal 0-10 [facility] Comment on above: Order Comment: 109-1 Performed By: #### L 100.0100 ####[facility] [address] [place], [address] Neutrophils/100 WBC (Bld) 68.5 % Normal 47-70 [facility] Comment on above: Order Comment: 109-1 Performed By: #### L 100.0100 ####[facility] [address] [place], [address] Nucleated RBC (Bld) [#/Vol] 0 10*3/uL Normal 0-5 [facility] Comment on above: Order Comment: 109-1 Performed By: #### L 100.0100 ####[facility] [address] [place], [address] Platelet mean volume (Bld) [Entitic vol] 11.0 fL Normal 6.2-12.0 [facility] Comment on above: Order Comment: 109-1 Performed By: #### L 100.0100 ####[facility] [address] [place], [address] Platelets (Bld) [#/Vol] 190 10*3/uL Normal 150-450 [facility] Comment on above: Order Comment: 109-1 Performed By: #### L 100.0100 ####[facility] [address] [place], [address] RBC (Bld) [#/Vol] 4.81 10*6/uL Normal 4.6-6.2 [facility] Comment on above: Order Comment: 109-1 Performed By: #### L 100.0100 ####[facility] [address] [place], [address] RDW SD 43.0 fl Normal 35.1-43.9 [facility] Comment on above: Order Comment: 109-1 Performed By: #### L 100.0100 ####[facility] [address] [place], [address] WBC (Bld) [#/Vol] 11.9 10*3/uL High 4.4-11.0 [facility] Comment on above: Order Comment: 109-1 Performed By: #### L 100.0100 ####[facility] [address] [place], [address] Eosinophil percentageOrdered By: Renard Burgos on 04-22-2024 Eosinophils/100 WBC (Bld) 0.4 % 0-5 [facility] Erythrocyte distribution wid th ratioOrdered By: Renard Burgos on 04-22-2024 Erythrocyte distribution width (RBC) [Ratio] 12.6 % 11.6-14.6 [facility] Erythrocyte distribution wid th standard deviationOrdered By: Renard Burgos on 04-22-2024 Erythrocyte distribution width (RBC) [Entitic vol] 43.0 fL 35.1-43.9 [facility] Hematocrit Auto (Bld) [Volum e fraction]Ordered By: Renard Burgos on 04-22-2024 Hematocrit (Bld) [Volume fraction] 44.5 % 40-54 [facility] Hemoglobin measurementOrdere d By: Renard Burgos on 04-22-2024 Hemoglobin (Bld) [Mass/Vol] 14.3 g/dL 13.0-16.5 [facility] Immature granulocytes/100 WB C Auto (Bld)Ordered By: Rneard Burgos on 04-22-2024 Immature granulocytes/100 WBC (Bld) 0.300 % 0.0-0.9 [facility] Comment on above: IG% - Immature Granu locytes (promyelocytes, myelocytes and metamyelocytes) > 1% indicates that a LEFT SHIFT is Present. Lymphocytes Auto (Unsp spec) [#/Vol]Ordered By: Renard Burgos on 04-22-2024 Lymphocytes (Bld) [#/Vol] 2.61 10*3/uL 0.83-4.51 [facility] Lymphocytes/100 WBC Auto (Un sp spec)Ordered By: Renard Burgos on 04-22-2024 Lymphocytes/100 WBC (Bld) 22.0 % 19-41 [facility] MCV (mean corpuscular volume ) determinationOrdered By: Renard Burgos on 04-22-2024 MCV (RBC) [Entitic vol] 92.5 fL 80-94 [facility] Mean corpuscular hemoglobin (MCH) determinationOrdered By: Renard Burgos on 04-22-2024 MCH (RBC) [Entitic mass] 29.7 pg 27.0-32.0 [facility] Mean corpuscular hemoglobin concentration (MCHC) determinationOrdered By: Renard Burgos on 04-22-2024 MCHC (RBC) [Mass/Vol] 32.1 g/dL 32-36 [facility] Mean platelet volume determi nationOrdered By: Renard Burgos on 04-22-2024 Platelet mean volume (Bld) [Entitic vol] 11.0 fL 6.2-12.0 [facility] Monocyte percentageOrdered B y: Renard Burgos on 04-22-2024 Monocytes/100 WBC (Bld) 8.3 % 0-10 [facility] Neutrophil percentageOrdered By: Renard Burgos on 04-22-2024 Neutrophils/100 WBC (Bld) 68.5 % 47-70 [facility] Nucleated red blood cell per centageOrdered By: Renard Burgos on 04-22-2024 Nucleated RBC/100 WBC (Bld) [Ratio] 0 % 0-5 [facility] Platelet countOrdered By: Garrick Bhatt on 04-22-2024 Platelets (Bld) [#/Vol] 190 10*3/uL 150-450 [facility] RBC Auto (Bld) [#/Vol]Ordere d By: Renard Burgos on 04-22-2024 RBC (Bld) [#/Vol] 4.81 10*6/uL 4.6-6.2 [facility] White blood cell (WBC) count Ordered By: Renard Burgos on 04-22-2024 WBC (Bld) [#/Vol] 11.9 10*3/uL High 4.4-11.0 [facility] Absolute neutrophil countOrd ered By: Renard Burgos on 04-15-2024 Neutrophils (Bld) [#/Vol] 8.7 10*3/uL High 2.0-7.7 [facility] Basophil percentageOrdered B y: Renard Burgos on 04-15-2024 Basophils/100 WBC (Bld) 0.3 % 0-1 [facility] Bilirubin, totalOrdered By: Renard Burgos on 04-15-2024 Bilirubin [Mass/Vol] 0.30 mg/dL 0.20-1.00 [facility] Comment on above: For patients on eltr ombopag therapy, use of Dimension Jackson TBIL is not recommended. Bilirubin.direct [Mass/Vol]O rdered By: Renard Burgos on 04-15-2024 Direct Bilirubin < 0.05 mg/dL 0.00-0.30 [facility] CBC W/Diff, Automatedon 03-31 Absolute Lymph 1.93 X10 3/uL Normal 0.83-4.51 [facility] Comment on above: Order Comment: 109-1 Performed By: #### L 100.0100, L500.3400 ####[facility] [address] [place], [address] Absolute Neut 8.7 X10 3/uL High 2.0-7.7 [facility] Comment on above: Order Comment: 109-1 Performed By: #### L 100.0100, L500.3400 ####[facility] [address] [place], [address] Basophils/100 WBC (Bld) 0.3 % Normal 0-1 [facility] Comment on above: Order Comment: 109-1 Performed By: #### L 100.0100, L500.3400 ####[facility] [address] [place], [address] Eosinophils/100 WBC (Bld) 0.4 % Normal 0-5 [facility] Comment on above: Order Comment: 109-1 Performed By: #### L 100.0100, L500.3400 ####[facility] [address] [place], [address] Erythrocyte distribution width (RBC) [Ratio] 12.8 % Normal 11.6-14.6 [facility] Comment on above: Order Comment: 109-1 Performed By: #### L 100.0100, L500.3400 ####[facility] [address] [place], [address] Hematocrit (Bld) [Volume fraction] 42.5 % Normal 40-54 [facility] Comment on above: Order Comment: 109-1 Performed By: #### L 100.0100, L500.3400 ####[facility] [address] [place], [address] Hemoglobin (Bld) [Mass/Vol] 13.7 g/dL Normal 13.0-16.5 [facility] Comment on above: Order Comment: 109-1 Performed By: #### L 100.0100, L500.3400 ####[facility] [address] [place], [address] IG% 0.400 Normal 0.0-0.9 [facility] Comment on above: Order Comment: 109-1 Result Comment: IG% - Immature Granulocytes (promyelocytes, myelocytes andmetamyelocytes) > 1% indicates that a LEFT SHIFT is Present. Performed By: #### L 100.0100, L500.3400 ####[facility] [address] [place], [address] Lymphocytes/100 WBC (Bld) 16.9 % Low 19-41 [facility] Comment on above: Order Comment: 109-1 Performed By: #### L 100.0100, L500.3400 ####[facility] [address] [place], [address] MCH (RBC) [Entitic mass] 29.5 pg Normal 27.0-32.0 [facility] Comment on above: Order Comment: 109-1 Performed By: #### L 100.0100, L500.3400 ####[facility] [address] [place], [address] MCHC (RBC) [Mass/Vol] 32.2 g/dL Normal 32-36 [facility] Comment on above: Order Comment: 109-1 Performed By: #### L 100.0100, L500.3400 ####[facility] [address] [place], [address] MCV (RBC) [Entitic vol] 91.6 fL Normal 80-94 [facility] Comment on above: Order Comment: 109-1 Performed By: #### L 100.0100, L500.3400 ####[facility] [address] [place], [address] Monocytes/100 WBC (Bld) 6.0 % Normal 0-10 [facility] Comment on above: Order Comment: 109-1 Performed By: #### L 100.0100, L500.3400 ####[facility] [address] [place], [address] Neutrophils/100 WBC (Bld) 76.0 % High 47-70 [facility] Comment on above: Order Comment: 109-1 Performed By: #### L 100.0100, L500.3400 ####[facility] [address] [place], [address] Nucleated RBC (Bld) [#/Vol] 0 10*3/uL Normal 0-5 [facility] Comment on above: Order Comment: 109-1 Performed By: #### L 100.0100, L500.3400 ####[facility] [address] [place], [address] Platelet mean volume (Bld) [Entitic vol] 11.1 fL Normal 6.2-12.0 [facility] Comment on above: Order Comment: 109-1 Performed By: #### L 100.0100, L500.3400 ####[facility] [address] [place], [address] Platelets (Bld) [#/Vol] 197 10*3/uL Normal 150-450 [facility] Comment on above: Order Comment: 109-1 Performed By: #### L 100.0100, L500.3400 ####[facility] [address] [place], [address] RBC (Bld) [#/Vol] 4.64 10*6/uL Normal 4.6-6.2 [facility] Comment on above: Order Comment: 109-1 Performed By: #### L 100.0100, L500.3400 ####[facility] [address] [place], [address] RDW SD 42.5 fl Normal 35.1-43.9 [facility] Comment on above: Order Comment: 109-1 Performed By: #### L 100.0100, L500.3400 ####[facility] [address] [place], [address] WBC (Bld) [#/Vol] 11.4 10*3/uL High 4.4-11.0 [facility] Comment on above: Order Comment: 109-1 Performed By: #### L 100.0100, L500.3400 ####[facility] [address] [place], [address] Eosinophil percentageOrdered By: Renard Burgos on 04-15-2024 Eosinophils/100 WBC (Bld) 0.4 % 0-5 [facility] Erythrocyte distribution wid th ratioOrdered By: Renard Burgos on 04-15-2024 Erythrocyte distribution width (RBC) [Ratio] 12.8 % 11.6-14.6 [facility] Erythrocyte distribution wid th standard deviationOrdered By: Renard Burgos on 04-15-2024 Erythrocyte distribution width (RBC) [Entitic vol] 42.5 fL 35.1-43.9 [facility] Hematocrit Auto (Bld) [Volum e fraction]Ordered By: Renard Burgos on 04-15-2024 Hematocrit (Bld) [Volume fraction] 42.5 % 40-54 [facility] Hemoglobin measurementOrdere d By: Renard Burgos on 04-15-2024 Hemoglobin (Bld) [Mass/Vol] 13.7 g/dL 13.0-16.5 [facility] Immature granulocytes/100 WB C Auto (Bld)Ordered By: Renard Burgos on 04-15-2024 Immature granulocytes/100 WBC (Bld) 0.400 % 0.0-0.9 [facility] Comment on above: IG% - Immature Granu locytes (promyelocytes, myelocytes and metamyelocytes) > 1% indicates that a LEFT SHIFT is Present. Laboratory - Chemistry and C hemistry - challengeOrdered By: Renard Burgos on 04-15-2024 AST [Catalytic activity/Vol] 18 U/L 15-37 [facility] Comment on above: Slight Hemolysis, Re sult may be falsely increased. Liver Profileon 04-15-2024 Albumin [Mass/Vol] 2.9 g/dL Low 3.2-5.0 [facility] Comment on above: Order Comment: 109-1 Performed By: #### L 100.0100, L500.3400 ####[facility] [address] [place], [address] ALK P 126 U/L High 45-117 [facility] Comment on above: Order Comment: 109-1 Performed By: #### L 100.0100, L500.3400 ####[facility] [address] [place], [address] ALT [Catalytic activity/Vol] 21 U/L Normal 16-61 [facility] Comment on above: Order Comment: 109-1 Performed By: #### L 100.0100, L500.3400 ####[facility] [address] [place], [address] AST [Catalytic activity/Vol] 18 U/L Normal 15-37 [facility] Comment on above: Order Comment: 109-1 Result Comment: Slig ht Hemolysis, Result may be falsely increased. Performed By: #### L 100.0100, L500.3400 ####[facility] [address] [place], [address] Bilirubin [Mass/Vol] 0.30 mg/dL Normal 0.20-1.00 [facility] Comment on above: Order Comment: 109-1 Result Comment: For patients on eltrombopag therapy, use of Dimension Jackson TBIL is not recommended. Performed By: #### L 100.0100, L500.3400 ####[facility] [address] [place], [address] D BILI < 0.05 Normal 0.00-0.30 [facility] Comment on above: Order Comment: 109-1 Performed By: #### L 100.0100, L500.3400 ####[facility] [address] [place], [address] Globulin (S) [Mass/Vol] 3.0 g/dL Normal 2.2-4.2 [facility] Comment on above: Order Comment: 109-1 Performed By: #### L 100.0100, L500.3400 ####[facility] [address] [place], [address] T PROT 5.9 g/dL Low 6.4-8.2 [facility] Comment on above: Order Comment: 109-1 Performed By: #### L 100.0100, L500.3400 ####[facility] [address] [place], [address] Lymphocytes Auto (Unsp spec) [#/Vol]Ordered By: Renard Burgos on 04-15-2024 Lymphocytes (Bld) [#/Vol] 1.93 10*3/uL 0.83-4.51 [facility] Lymphocytes/100 WBC Auto (Un sp spec)Ordered By: Renard Burgos on 04-15-2024 Lymphocytes/100 WBC (Bld) 16.9 % Low 19-41 [facility] MCV (mean corpuscular volume ) determinationOrdered By: Renard Burgos on 04-15-2024 MCV (RBC) [Entitic vol] 91.6 fL 80-94 [facility] Mean corpuscular hemoglobin (MCH) determinationOrdered By: Renard Burgos on 04-15-2024 MCH (RBC) [Entitic mass] 29.5 pg 27.0-32.0 [facility] Mean corpuscular hemoglobin concentration (MCHC) determinationOrdered By: Renard Burgos on 04-15-2024 MCHC (RBC) [Mass/Vol] 32.2 g/dL 32-36 [facility] Mean platelet volume determi nationOrdered By: Renard Burgos on 04-15-2024 Platelet mean volume (Bld) [Entitic vol] 11.1 fL 6.2-12.0 [facility] Monocyte percentageOrdered B y: Renard Burgos on 04-15-2024 Monocytes/100 WBC (Bld) 6.0 % 0-10 [facility] Neutrophil percentageOrdered By: Renard Burgos on 04-15-2024 Neutrophils/100 WBC (Bld) 76.0 % High 47-70 [facility] Nucleated red blood cell per centageOrdered By: Renard Burgos on 04-15-2024 Nucleated RBC/100 WBC (Bld) [Ratio] 0 % 0-5 [facility] Platelet countOrdered By: Garrick Bhatt on 04-15-2024 Platelets (Bld) [#/Vol] 197 10*3/uL 150-450 [facility] RBC Auto (Bld) [#/Vol]Ordere d By: Renard Burgos on 04-15-2024 RBC (Bld) [#/Vol] 4.64 10*6/uL 4.6-6.2 [facility] Serum globulin measurementOr dered By: Renard Burgos on 04-15-2024 Globulin (S) [Mass/Vol] 3.0 g/dL 2.2-4.2 [facility] Serum or plasma alanine kay otransferase (ALT) measurementOrdered By: Renard Burgos on 04-15-2024 ALT [Catalytic activity/Vol] 21 U/L 16-61 [facility] Serum or plasma albumin gordy urement (mass/volume)Ordered By: Renard Burgos on 04-15-2024 Albumin [Mass/Vol] 2.9 g/dL Low 3.2-5.0 [facility] Serum or plasma alkaline trace sphatase measurementOrdered By: Renard Burgos on 04-15-2024 ALP [Catalytic activity/Vol] 126 U/L High 45-117 [facility] Total proteinOrdered By: Lyubov Burgos on 04-15-2024 Protein [Mass/Vol] 5.9 g/dL Low 6.4-8.2 [facility] White blood cell (WBC) count Ordered By: Renard Burgos on 04-15-2024 WBC (Bld) [#/Vol] 11.4 10*3/uL High 4.4-11.0 [facility] Absolute neutrophil countOrd ered By: Renard Burgos on 04-08-2024 Neutrophils (Bld) [#/Vol] 5.7 10*3/uL 2.0-7.7 [facility] Basophil percentageOrdered B y: Renard Burgos on 04-08-2024 Basophils/100 WBC (Bld) 0.6 % 0-1 [facility] CBC W/Diff, Automatedon Absolute Lymph 2.27 X10 3/uL Normal 0.83-4.51 [facility] Comment on above: Order Comment: 109.1 Performed By: #### L 100.0100 ####[facility] [address] [place], [address] Absolute Neut 5.7 X10 3/uL Normal 2.0-7.7 [facility] Comment on above: Order Comment: 109.1 Performed By: #### L 100.0100 ####[facility] [address] [place], [address] Basophils/100 WBC (Bld) 0.6 % Normal 0-1 [facility] Comment on above: Order Comment: 109.1 Performed By: #### L 100.0100 ####[facility] [address] [place], [address] Eosinophils/100 WBC (Bld) 0.5 % Normal 0-5 [facility] Comment on above: Order Comment: 109.1 Performed By: #### L 100.0100 ####[facility] [address] [place], [address] Erythrocyte distribution width (RBC) [Ratio] 12.6 % Normal 11.6-14.6 [facility] Comment on above: Order Comment: 109.1 Performed By: #### L 100.0100 ####[facility] [address] [place], [address] Hematocrit (Bld) [Volume fraction] 41.2 % Normal 40-54 [facility] Comment on above: Order Comment: 109.1 Performed By: #### L 100.0100 ####[facility] [address] [place], [address] Hemoglobin (Bld) [Mass/Vol] 13.3 g/dL Normal 13.0-16.5 [facility] Comment on above: Order Comment: 109.1 Performed By: #### L 100.0100 ####[facility] [address] [place], [address] IG% 0.200 Normal 0.0-0.9 [facility] Comment on above: Order Comment: 109.1 Result Comment: IG% - Immature Granulocytes (promyelocytes, myelocytes andmetamyelocytes) > 1% indicates that a LEFT SHIFT is Present. Performed By: #### L 100.0100 ####[facility] [address] [place], [address] Lymphocytes/100 WBC (Bld) 26.0 % Normal 19-41 [facility] Comment on above: Order Comment: 109.1 Performed By: #### L 100.0100 ####[facility] [address] [place], [address] MCH (RBC) [Entitic mass] 29.6 pg Normal 27.0-32.0 [facility] Comment on above: Order Comment: 109.1 Performed By: #### L 100.0100 ####[facility] [address] [place], [address] MCHC (RBC) [Mass/Vol] 32.3 g/dL Normal 32-36 [facility] Comment on above: Order Comment: 109.1 Performed By: #### L 100.0100 ####[facility] [address] [place], [address] MCV (RBC) [Entitic vol] 91.8 fL Normal 80-94 [facility] Comment on above: Order Comment: 109.1 Performed By: #### L 100.0100 ####[facility] [address] [place], [address] Monocytes/100 WBC (Bld) 7.8 % Normal 0-10 [facility] Comment on above: Order Comment: 109.1 Performed By: #### L 100.0100 ####[facility] [address], [address] Neutrophils/100 WBC (Bld) 64.9 % Normal 47-70 [facility] Comment on above: Order Comment: 109.1 Performed By: #### L 100.0100 ####[facility] [address] [place], [address] Nucleated RBC (Bld) [#/Vol] 0 10*3/uL Normal 0-5 [facility] Comment on above: Order Comment: 109.1 Performed By: #### L 100.0100 ####[facility] [address] [place], [address] Platelet mean volume (Bld) [Entitic vol] 10.8 fL Normal 6.2-12.0 [facility] Comment on above: Order Comment: 109.1 Performed By: #### L 100.0100 ####[facility] [address] [place], [address] Platelets (Bld) [#/Vol] 208 10*3/uL Normal 150-450 [facility] Comment on above: Order Comment: 109.1 Performed By: #### L 100.0100 ####[facility] [address] [place], [address] RBC (Bld) [#/Vol] 4.49 10*6/uL Low 4.6-6.2 [facility] Comment on above: Order Comment: 109.1 Performed By: #### L 100.0100 ####[facility] [address] [place], [address] RDW SD 42.4 fl Normal 35.1-43.9 [facility] Comment on above: Order Comment: 109.1 Performed By: #### L 100.0100 ####[facility] [address] [place], [address] WBC (Bld) [#/Vol] 8.7 10*3/uL Normal 4.4-11.0 [facility] Comment on above: Order Comment: 109.1 Performed By: #### L 100.0100 ####[facility] [address] [place], [address] Eosinophil percentageOrdered By: Renard Burgos on 04-08-2024 Eosinophils/100 WBC (Bld) 0.5 % 0-5 [facility] Erythrocyte distribution wid th ratioOrdered By: Renard Burgos on 04-08-2024 Erythrocyte distribution width (RBC) [Ratio] 12.6 % 11.6-14.6 [facility] Erythrocyte distribution wid th standard deviationOrdered By: Renard Burgos on 04-08-2024 Erythrocyte distribution width (RBC) [Entitic vol] 42.4 fL 35.1-43.9 [facility] Hematocrit Auto (Bld) [Volum e fraction]Ordered By: Renard Burgos on 04-08-2024 Hematocrit (Bld) [Volume fraction] 41.2 % 40-54 [facility] Hemoglobin measurementOrdere d By: Renard Burgos on 04-08-2024 Hemoglobin (Bld) [Mass/Vol] 13.3 g/dL 13.0-16.5 [facility] Immature granulocytes/100 WB C Auto (Bld)Ordered By: Renard Burgos on 04-08-2024 Immature granulocytes/100 WBC (Bld) 0.200 % 0.0-0.9 [facility] Comment on above: IG% - Immature Granu locytes (promyelocytes, myelocytes and metamyelocytes) > 1% indicates that a LEFT SHIFT is Present. Lymphocytes Auto (Unsp spec) [#/Vol]Ordered By: Renard Burgos on 04-08-2024 Lymphocytes (Bld) [#/Vol] 2.27 10*3/uL 0.83-4.51 [facility] Lymphocytes/100 WBC Auto (Un sp spec)Ordered By: Renard Burgos on 04-08-2024 Lymphocytes/100 WBC (Bld) 26.0 % 19-41 [facility] MCV (mean corpuscular volume ) determinationOrdered By: Renard Burgos on 04-08-2024 MCV (RBC) [Entitic vol] 91.8 fL 80-94 [facility] Mean corpuscular hemoglobin (MCH) determinationOrdered By: Renard Burgos on 04-08-2024 MCH (RBC) [Entitic mass] 29.6 pg 27.0-32.0 [facility] Mean corpuscular hemoglobin concentration (MCHC) determinationOrdered By: Renard Burgos on 04-08-2024 MCHC (RBC) [Mass/Vol] 32.3 g/dL 32-36 [facility] Mean platelet volume determi nationOrdered By: Renard Burgos on 04-08-2024 Platelet mean volume (Bld) [Entitic vol] 10.8 fL 6.2-12.0 [facility] Monocyte percentageOrdered B y: Renard Burgos on 04-08-2024 Monocytes/100 WBC (Bld) 7.8 % 0-10 [facility] Neutrophil percentageOrdered By: Renard Burgos on 04-08-2024 Neutrophils/100 WBC (Bld) 64.9 % 47-70 [facility] Nucleated red blood cell per centageOrdered By: Renard Burgos on 04-08-2024 Nucleated RBC/100 WBC (Bld) [Ratio] 0 % 0-5 [facility] Platelet countOrdered By: Garrick Bhatt on 04-08-2024 Platelets (Bld) [#/Vol] 208 10*3/uL 150-450 [facility] RBC Auto (Bld) [#/Vol]Ordere d By: Renard Burgos on 04-08-2024 RBC (Bld) [#/Vol] 4.49 10*6/uL Low 4.6-6.2 [facility] White blood cell (WBC) count Ordered By: Renard Burgos on 04-08-2024 WBC (Bld) [#/Vol] 8.7 10*3/uL 4.4-11.0 [facility] Absolute neutrophil countOrd ered By: Renard Burgos on 04-01-2024 Neutrophils (Bld) [#/Vol] 7.1 10*3/uL 2.0-7.7 [facility] Basophil percentageOrdered B y: Renard Burgos on 04-01-2024 Basophils/100 WBC (Bld) 0.4 % 0-1 [facility] CBC W/Diff, Automatedon 12- Absolute Lymph 1.97 X10 3/uL Normal 0.83-4.51 [facility] Comment on above: Order Comment: 109-1 Performed By: #### L 100.0100 ####[facility] [address] [place], [address] Absolute Neut 7.1 X10 3/uL Normal 2.0-7.7 [facility] Comment on above: Order Comment: 109-1 Performed By: #### L 100.0100 ####[facility] [address] [place], [address] Basophils/100 WBC (Bld) 0.4 % Normal 0-1 [facility] Comment on above: Order Comment: 109-1 Performed By: #### L 100.0100 ####[facility] [address] [place], [address] Eosinophils/100 WBC (Bld) 0.4 % Normal 0-5 [facility] Comment on above: Order Comment: 109-1 Performed By: #### L 100.0100 ####[facility] [address] [place], [address] Erythrocyte distribution width (RBC) [Ratio] 12.6 % Normal 11.6-14.6 [facility] Comment on above: Order Comment: 109-1 Performed By: #### L 100.0100 ####[facility] [address] [place], [address] Hematocrit (Bld) [Volume fraction] 41.7 % Normal 40-54 [facility] Comment on above: Order Comment: 109-1 Performed By: #### L 100.0100 ####[facility] [address] [place], [address] Hemoglobin (Bld) [Mass/Vol] 13.6 g/dL Normal 13.0-16.5 [facility] Comment on above: Order Comment: 109-1 Performed By: #### L 100.0100 ####[facility] [address] [place], [address] IG% 0.300 Normal 0.0-0.9 [facility] Comment on above: Order Comment: 109-1 Result Comment: IG% - Immature Granulocytes (promyelocytes, myelocytes andmetamyelocytes) > 1% indicates that a LEFT SHIFT is Present. Performed By: #### L 100.0100 ####[facility] [address] [place], [address] Lymphocytes/100 WBC (Bld) 20.0 % Normal 19-41 [facility] Comment on above: Order Comment: 109-1 Performed By: #### L 100.0100 ####[facility] [address] [place], [address] MCH (RBC) [Entitic mass] 29.7 pg Normal 27.0-32.0 [facility] Comment on above: Order Comment: 109-1 Performed By: #### L 100.0100 ####[facility] [address] [place], [address] MCHC (RBC) [Mass/Vol] 32.6 g/dL Normal 32-36 [facility] [facility] Comment on above: Order Comment: 109-1 Performed By: #### L 100.0100 ####[facility] [address] [place], [address] MCV (RBC) [Entitic vol] 91.0 fL Normal 80-94 [facility] Comment on above: Order Comment: 109-1 Performed By: #### L 100.0100 ####[facility] [address] [place], [address] Monocytes/100 WBC (Bld) 7.1 % Normal 0-10 [facility] Comment on above: Order Comment: 109-1 Performed By: #### L 100.0100 ####[facility] [address] [place], [address] Neutrophils/100 WBC (Bld) 71.8 % High 47-70 [facility] Comment on above: Order Comment: 109-1 Performed By: #### L 100.0100 ####[facility] [address] [place], [address] Nucleated RBC (Bld) [#/Vol] 0 10*3/uL Normal 0-5 [facility] Comment on above: Order Comment: 109-1 Performed By: #### L 100.0100 ####[facility] [address] [place], [address] Platelet mean volume (Bld) [Entitic vol] 11.3 fL Normal 6.2-12.0 [facility] Comment on above: Order Comment: 109-1 Performed By: #### L 100.0100 ####[facility] [address] [place], [address] Platelets (Bld) [#/Vol] 195 10*3/uL Normal 150-450 [facility] Comment on above: Order Comment: 109-1 Performed By: #### L 100.0100 ####[facility] [address] [place], [address] RBC (Bld) [#/Vol] 4.58 10*6/uL Low 4.6-6.2 [facility] Comment on above: Order Comment: 109-1 Performed By: #### L 100.0100 ####[facility] [address] [place], [address] RDW SD 41.2 fl Normal 35.1-43.9 [facility] Comment on above: Order Comment: 109-1 Performed By: #### L 100.0100 ####[facility] [address] [place], [address] WBC (Bld) [#/Vol] 9.8 10*3/uL Normal 4.4-11.0 [facility] Comment on above: Order Comment: 109-1 Performed By: #### L 100.0100 ####[facility] [address] [place], [address] Eosinophil percentageOrdered By: Renard Burgos on 04-01-2024 Eosinophils/100 WBC (Bld) 0.4 % 0-5 [facility] Erythrocyte distribution wid th ratioOrdered By: Renard Burgos on 04-01-2024 Erythrocyte distribution width (RBC) [Ratio] 12.6 % 11.6-14.6 [facility] Erythrocyte distribution wid th standard deviationOrdered By: Renard Burgos on 04-01-2024 Erythrocyte distribution width (RBC) [Entitic vol] 41.2 fL 35.1-43.9 [facility] Hematocrit Auto (Bld) [Volum e fraction]Ordered By: Renard Burgos on 04-01-2024 Hematocrit (Bld) [Volume fraction] 41.7 % 40-54 [facility] Hemoglobin measurementOrdere d By: Renard Burgos on 04-01-2024 Hemoglobin (Bld) [Mass/Vol] 13.6 g/dL 13.0-16.5 [facility] Immature granulocytes/100 WB C Auto (Bld)Ordered By: Renard Burgos on 04-01-2024 Immature granulocytes/100 WBC (Bld) 0.300 % 0.0-0.9 [facility] Comment on above: IG% - Immature Granu locytes (promyelocytes, myelocytes and metamyelocytes) > 1% indicates that a LEFT SHIFT is Present. Lymphocytes Auto (Unsp spec) [#/Vol]Ordered By: Renard Burgos on 04-01-2024 Lymphocytes (Bld) [#/Vol] 1.97 10*3/uL 0.83-4.51 [facility] Lymphocytes/100 WBC Auto (Un sp spec)Ordered By: Renard Burgos on 04-01-2024 Lymphocytes/100 WBC (Bld) 20.0 % 19-41 [facility] MCV (mean corpuscular volume ) determinationOrdered By: Renard Burgos on 04-01-2024 MCV (RBC) [Entitic vol] 91.0 fL 80-94 [facility] Mean corpuscular hemoglobin (MCH) determinationOrdered By: Renard Burgos on 04-01-2024 MCH (RBC) [Entitic mass] 29.7 pg 27.0-32.0 [facility] Mean corpuscular hemoglobin concentration (MCHC) determinationOrdered By: Renard Burgos on 04-01-2024 MCHC (RBC) [Mass/Vol] 32.6 g/dL 32-36 [facility] Mean platelet volume determi nationOrdered By: Renard Burgos on 04-01-2024 Platelet mean volume (Bld) [Entitic vol] 11.3 fL 6.2-12.0 [facility] Monocyte percentageOrdered B y: Renard Burgos on 04-01-2024 Monocytes/100 WBC (Bld) 7.1 % 0-10 [facility] Neutrophil percentageOrdered By: Renard Burgos on 04-01-2024 Neutrophils/100 WBC (Bld) 71.8 % High 47-70 [facility] Nucleated red blood cell per centageOrdered By: Renard Burgos on 04-01-2024 Nucleated RBC/100 WBC (Bld) [Ratio] 0 % 0-5 [facility] Platelet countOrdered By: Garrick Bhatt on 04-01-2024 Platelets (Bld) [#/Vol] 195 10*3/uL 150-450 [facility] RBC Auto (Bld) [#/Vol]Ordere d By: Renard Burgos on 04-01-2024 RBC (Bld) [#/Vol] 4.58 10*6/uL Low 4.6-6.2 [facility] White blood cell (WBC) count Ordered By: Renard Burgos on 04-01-2024 WBC (Bld) [#/Vol] 9.8 10*3/uL 4.4-11.0 [facility] Absolute neutrophil countOrd ered By: Renard Burgos on 03-25-2024 Neutrophils (Bld) [#/Vol] 5.4 10*3/uL 2.0-7.7 [facility] Basophil percentageOrdered B y: Renard Burgos on 03-25-2024 Basophils/100 WBC (Bld) 0.5 % 0-1 [facility] CBC W/Diff, Automatedon 03-02 Absolute Lymph 2.14 X10 3/uL Normal 0.83-4.51 [facility] Comment on above: Order Comment: 109-1 Performed By: #### L 100.0100 ####[facility] [address] [place], [address] Absolute Neut 5.4 X10 3/uL Normal 2.0-7.7 [facility] Comment on above: Order Comment: 109-1 Performed By: #### L 100.0100 ####[facility] [address] [place], [address] Basophils/100 WBC (Bld) 0.5 % Normal 0-1 [facility] Comment on above: Order Comment: 109-1 Performed By: #### L 100.0100 ####[facility] [address] [place], [address] Eosinophils/100 WBC (Bld) 0.7 % Normal 0-5 [facility] Comment on above: Order Comment: 109-1 Performed By: #### L 100.0100 ####[facility] [address] [place], [address] Erythrocyte distribution width (RBC) [Ratio] 12.7 % Normal 11.6-14.6 [facility] Comment on above: Order Comment: 109-1 Performed By: #### L 100.0100 ####[facility] [address] [place], [address] Hematocrit (Bld) [Volume fraction] 42.3 % Normal 40-54 [facility] Comment on above: Order Comment: 109-1 Performed By: #### L 100.0100 ####[facility] [address] [place], [address] Hemoglobin (Bld) [Mass/Vol] 13.7 g/dL Normal 13.0-16.5 [facility] Comment on above: Order Comment: 109-1 Performed By: #### L 100.0100 ####[facility] [address] [place], [address] IG% 0.500 Normal 0.0-0.9 [facility] Comment on above: Order Comment: 109-1 Result Comment: IG% - Immature Granulocytes (promyelocytes, myelocytes andmetamyelocytes) > 1% indicates that a LEFT SHIFT is Present. Performed By: #### L 100.0100 ####[facility] [address] [place], [address] Lymphocytes/100 WBC (Bld) 25.8 % Normal 19-41 [facility] Comment on above: Order Comment: 109-1 Performed By: #### L 100.0100 ####[facility] [address] [place], [address] MCH (RBC) [Entitic mass] 29.2 pg Normal 27.0-32.0 [facility] Comment on above: Order Comment: 109-1 Performed By: #### L 100.0100 ####[facility] [address] [place], [address] MCHC (RBC) [Mass/Vol] 32.4 g/dL Normal 32-36 [facility] Comment on above: Order Comment: 109-1 Performed By: #### L 100.0100 ####[facility] [address] [place], [address] MCV (RBC) [Entitic vol] 90.2 fL Normal 80-94 [facility] Comment on above: Order Comment: 109-1 Performed By: #### L 100.0100 ####[facility] [address] [place], [address] Monocytes/100 WBC (Bld) 8.0 % Normal 0-10 [facility] Comment on above: Order Comment: 109-1 Performed By: #### L 100.0100 ####[facility] [address] [place], [address] Neutrophils/100 WBC (Bld) 64.5 % Normal 47-70 [facility] Comment on above: Order Comment: 109-1 Performed By: #### L 100.0100 ####[facility] [address] [place], [address] Nucleated RBC (Bld) [#/Vol] 0 10*3/uL Normal 0-5 [facility] Comment on above: Order Comment: 109-1 Performed By: #### L 100.0100 ####[facility] [address] [place], [address] Platelet mean volume (Bld) [Entitic vol] 11.2 fL Normal 6.2-12.0 [facility] Comment on above: Order Comment: 109-1 Performed By: #### L 100.0100 ####[facility] [address] [place], [address] Platelets (Bld) [#/Vol] 204 10*3/uL Normal 150-450 [facility] Comment on above: Order Comment: 109-1 Performed By: #### L 100.0100 ####[facility] [address] [place], [address] RBC (Bld) [#/Vol] 4.69 10*6/uL Normal 4.6-6.2 [facility] Comment on above: Order Comment: 109-1 Performed By: #### L 100.0100 ####[facility] [address] [place], [address] RDW SD 41.8 fl Normal 35.1-43.9 [facility] Comment on above: Order Comment: 109-1 Performed By: #### L 100.0100 ####[facility] [address] [place], [address] WBC (Bld) [#/Vol] 8.3 10*3/uL Normal 4.4-11.0 [facility] Comment on above: Order Comment: 109-1 Performed By: #### L 100.0100 ####[facility] [address] [place], [address] Eosinophil percentageOrdered By: Renard Burgos on 03-25-2024 Eosinophils/100 WBC (Bld) 0.7 % 0-5 [facility] Erythrocyte distribution wid th ratioOrdered By: Renard Burgos on 03-25-2024 Erythrocyte distribution width (RBC) [Ratio] 12.7 % 11.6-14.6 [facility] Erythrocyte distribution wid th standard deviationOrdered By: Renard Burgos on 03-25-2024 Erythrocyte distribution width (RBC) [Entitic vol] 41.8 fL 35.1-43.9 [facility] Hematocrit Auto (Bld) [Volum e fraction]Ordered By: Renard Burgos on 03-25-2024 Hematocrit (Bld) [Volume fraction] 42.3 % 40-54 [facility] Hemoglobin measurementOrdere d By: Renard Burgos on 03-25-2024 Hemoglobin (Bld) [Mass/Vol] 13.7 g/dL 13.0-16.5 [facility] Immature granulocytes/100 WB C Auto (Bld)Ordered By: Renard Burgos on 03-25-2024 Immature granulocytes/100 WBC (Bld) 0.500 % 0.0-0.9 [facility] Comment on above: IG% - Immature Granu locytes (promyelocytes, myelocytes and metamyelocytes) > 1% indicates that a LEFT SHIFT is Present. Lymphocytes Auto (Unsp spec) [#/Vol]Ordered By: Renard Burgos on 03-25-2024 Lymphocytes (Bld) [#/Vol] 2.14 10*3/uL 0.83-4.51 [facility] Lymphocytes/100 WBC Auto (Un sp spec)Ordered By: Renard Burgos on 03-25-2024 Lymphocytes/100 WBC (Bld) 25.8 % 19-41 [facility] MCV (mean corpuscular volume ) determinationOrdered By: Renard Burgos on 03-25-2024 MCV (RBC) [Entitic vol] 90.2 fL 80-94 [facility] Mean corpuscular hemoglobin (MCH) determinationOrdered By: Renard Burgos on 03-25-2024 MCH (RBC) [Entitic mass] 29.2 pg 27.0-32.0 [facility] Mean corpuscular hemoglobin concentration (MCHC) determinationOrdered By: Renard Burgos on 03-25-2024 MCHC (RBC) [Mass/Vol] 32.4 g/dL 32-36 [facility] Mean platelet volume determi nationOrdered By: Renard Burgos on 03-25-2024 Platelet mean volume (Bld) [Entitic vol] 11.2 fL 6.2-12.0 [facility] Monocyte percentageOrdered B y: Renard Burgos on 03-25-2024 Monocytes/100 WBC (Bld) 8.0 % 0-10 [facility] Neutrophil percentageOrdered By: Renard Burgos on 03-25-2024 Neutrophils/100 WBC (Bld) 64.5 % 47-70 [facility] Nucleated red blood cell per centageOrdered By: Renard Burgos on 03-25-2024 Nucleated RBC/100 WBC (Bld) [Ratio] 0 % 0-5 [facility] Platelet countOrdered By: Garrick Bhatt on 03-25-2024 Platelets (Bld) [#/Vol] 204 10*3/uL 150-450 [facility] RBC Auto (Bld) [#/Vol]Ordere d By: Renard Burgos on 03-25-2024 RBC (Bld) [#/Vol] 4.69 10*6/uL 4.6-6.2 [facility] White blood cell (WBC) count Ordered By: Renard Burgos on 03-25-2024 WBC (Bld) [#/Vol] 8.3 10*3/uL 4.4-11.0 [facility] Absolute neutrophil countOrd ered By: Renard Burgos on 03-18-2024 Neutrophils (Bld) [#/Vol] 5.2 10*3/uL 2.0-7.7 [facility] Basophil percentageOrdered B y: Renard Burgos on 03-18-2024 Basophils/100 WBC (Bld) 0.6 % 0-1 [facility] CBC W/Diff, Automatedon 03-01 Absolute Lymph 2.23 X10 3/uL Normal 0.83-4.51 [facility] Comment on above: Order Comment: 109.1 Performed By: #### L 100.0100 ####[facility] [address] [place], [address] Absolute Neut 5.2 X10 3/uL Normal 2.0-7.7 [facility] Comment on above: Order Comment: 109.1 Performed By: #### L 100.0100 ####[facility] [address] [place], [address] Basophils/100 WBC (Bld) 0.6 % Normal 0-1 [facility] Comment on above: Order Comment: 109.1 Performed By: #### L 100.0100 ####[facility] [address] [place], [address] Eosinophils/100 WBC (Bld) 0.7 % Normal 0-5 [facility] Comment on above: Order Comment: 109.1 Performed By: #### L 100.0100 ####[facility] [address] [place], [address] Erythrocyte distribution width (RBC) [Ratio] 12.8 % Normal 11.6-14.6 [facility] Comment on above: Order Comment: 109.1 Performed By: #### L 100.0100 ####[facility] [address] [place], [address] Hematocrit (Bld) [Volume fraction] 42.0 % Normal 40-54 [facility] Comment on above: Order Comment: 109.1 Performed By: #### L 100.0100 ####[facility] [address] [place], [address] Hemoglobin (Bld) [Mass/Vol] 13.6 g/dL Normal 13.0-16.5 [facility] Comment on above: Order Comment: 109.1 Performed By: #### L 100.0100 ####[facility] [address] [place], [address] IG% 0.500 Normal 0.0-0.9 [facility] Comment on above: Order Comment: 109.1 Result Comment: IG% - Immature Granulocytes (promyelocytes, myelocytes andmetamyelocytes) > 1% indicates that a LEFT SHIFT is Present. Performed By: #### L 100.0100 ####[facility] [address] [place], [address] Lymphocytes/100 WBC (Bld) 27.0 % Normal 19-41 [facility] Comment on above: Order Comment: 109.1 Performed By: #### L 100.0100 ####[facility] [address] [place], [address] MCH (RBC) [Entitic mass] 29.5 pg Normal 27.0-32.0 [facility] Comment on above: Order Comment: 109.1 Performed By: #### L 100.0100 ####[facility] [address] [place], [address] MCHC (RBC) [Mass/Vol] 32.4 g/dL Normal 32-36 [facility] Comment on above: Order Comment: 109.1 Performed By: #### L 100.0100 ####[facility] [address] [place], [address] MCV (RBC) [Entitic vol] 91.1 fL Normal 80-94 [facility] Comment on above: Order Comment: 109.1 Performed By: #### L 100.0100 ####[facility] [address] [place], [address] Monocytes/100 WBC (Bld) 8.5 % Normal 0-10 [facility] Comment on above: Order Comment: 109.1 Performed By: #### L 100.0100 ####[facility] [address] [place], [address] Neutrophils/100 WBC (Bld) 62.7 % Normal 47-70 [facility] Comment on above: Order Comment: 109.1 Performed By: #### L 100.0100 ####[facility] [address] [place], [address] Nucleated RBC (Bld) [#/Vol] 0 10*3/uL Normal 0-5 [facility] Comment on above: Order Comment: 109.1 Performed By: #### L 100.0100 ####[facility] [address] [place], [address] Platelet mean volume (Bld) [Entitic vol] 10.8 fL Normal 6.2-12.0 [facility] Comment on above: Order Comment: 109.1 Performed By: #### L 100.0100 ####[facility] [address] [place], [address] Platelets (Bld) [#/Vol] 211 10*3/uL Normal 150-450 [facility] Comment on above: Order Comment: 109.1 Performed By: #### L 100.0100 ####[facility] [address] [place], [address] RBC (Bld) [#/Vol] 4.61 10*6/uL Normal 4.6-6.2 [facility] Comment on above: Order Comment: 109.1 Performed By: #### L 100.0100 ####[facility] [address] [place], [address] RDW SD 42.3 fl Normal 35.1-43.9 [facility] Comment on above: Order Comment: 109.1 Performed By: #### L 100.0100 ####[facility] [address] [place], [address] WBC (Bld) [#/Vol] 8.3 10*3/uL Normal 4.4-11.0 [facility] Comment on above: Order Comment: 109.1 Performed By: #### L 100.0100 ####[facility] [address] [place], [address] Eosinophil percentageOrdered By: Renard Burgos on 03-18-2024 Eosinophils/100 WBC (Bld) 0.7 % 0-5 [facility] Erythrocyte distribution wid th ratioOrdered By: Renard Burgos on 03-18-2024 Erythrocyte distribution width (RBC) [Ratio] 12.8 % 11.6-14.6 [facility] Erythrocyte distribution wid th standard deviationOrdered By: Renard Burgos on 03-18-2024 Erythrocyte distribution width (RBC) [Entitic vol] 42.3 fL 35.1-43.9 [facility] Hematocrit Auto (Bld) [Volum e fraction]Ordered By: Renard Burgos on 03-18-2024 Hematocrit (Bld) [Volume fraction] 42.0 % 40-54 [facility] Hemoglobin measurementOrdere d By: Renard Burgos on 03-18-2024 Hemoglobin (Bld) [Mass/Vol] 13.6 g/dL 13.0-16.5 [facility] Immature granulocytes/100 WB C Auto (Bld)Ordered By: Renard Burgos on 03-18-2024 Immature granulocytes/100 WBC (Bld) 0.500 % 0.0-0.9 [facility] Comment on above: IG% - Immature Granu locytes (promyelocytes, myelocytes and metamyelocytes) > 1% indicates that a LEFT SHIFT is Present. Lymphocytes Auto (Unsp spec) [#/Vol]Ordered By: Renard Burgos on 03-18-2024 Lymphocytes (Bld) [#/Vol] 2.23 10*3/uL 0.83-4.51 [facility] Lymphocytes/100 WBC Auto (Un sp spec)Ordered By: Renard Burgos on 03-18-2024 Lymphocytes/100 WBC (Bld) 27.0 % 19-41 [facility] MCV (mean corpuscular volume ) determinationOrdered By: Renard Burgos on 03-18-2024 MCV (RBC) [Entitic vol] 91.1 fL 80-94 [facility] Mean corpuscular hemoglobin (MCH) determinationOrdered By: Renard Burgos on 03-18-2024 MCH (RBC) [Entitic mass] 29.5 pg 27.0-32.0 [facility] Mean corpuscular hemoglobin concentration (MCHC) determinationOrdered By: Renard Burgos on 03-18-2024 MCHC (RBC) [Mass/Vol] 32.4 g/dL 32-36 [facility] Mean platelet volume determi nationOrdered By: Renard Burgos on 03-18-2024 Platelet mean volume (Bld) [Entitic vol] 10.8 fL 6.2-12.0 [facility] Monocyte percentageOrdered B y: Renard Burgos on 03-18-2024 Monocytes/100 WBC (Bld) 8.5 % 0-10 [facility] Neutrophil percentageOrdered By: Renard Burgos on 03-18-2024 Neutrophils/100 WBC (Bld) 62.7 % 47-70 [facility] Nucleated red blood cell per centageOrdered By: Renard Burgos on 03-18-2024 Nucleated RBC/100 WBC (Bld) [Ratio] 0 % 0-5 [facility] Platelet countOrdered By: Garrick Bhatt on 03-18-2024 Platelets (Bld) [#/Vol] 211 10*3/uL 150-450 [facility] RBC Auto (Bld) [#/Vol]Ordere d By: Renard Burgos on 03-18-2024 RBC (Bld) [#/Vol] 4.61 10*6/uL 4.6-6.2 [facility] White blood cell (WBC) count Ordered By: Renard Burgos on 03-18-2024 WBC (Bld) [#/Vol] 8.3 10*3/uL 4.4-11.0 [facility] Absolute neutrophil countOrd ered By: Renard Burgos on 03-11-2024 Neutrophils (Bld) [#/Vol] 6.2 10*3/uL 2.0-7.7 [facility] Basophil percentageOrdered B y: Renard Burgos on 03-11-2024 Basophils/100 WBC (Bld) 0.5 % 0-1 [facility] Eosinophil percentageOrdered By: Renard Burgos on 03-11-2024 Eosinophils/100 WBC (Bld) 0.6 % 0-5 [facility] Erythrocyte distribution wid th ratioOrdered By: Renard Burgos on 03-11-2024 Erythrocyte distribution width (RBC) [Ratio] 12.7 % 11.6-14.6 [facility] Erythrocyte distribution wid th standard deviationOrdered By: Renard Burgos on 03-11-2024 Erythrocyte distribution width (RBC) [Entitic vol] 41.5 fL 35.1-43.9 [facility] Hematocrit Auto (Bld) [Volum e fraction]Ordered By: Renard Burgos on 03-11-2024 Hematocrit (Bld) [Volume fraction] 41.5 % 40-54 [facility] Hemoglobin measurementOrdere d By: Renard Burgos on 03-11-2024 Hemoglobin (Bld) [Mass/Vol] 13.8 g/dL 13.0-16.5 [facility] Immature granulocytes/100 WB C Auto (Bld)Ordered By: Renard Burgos on 03-11-2024 Immature granulocytes/100 WBC (Bld) 0.500 % 0.0-0.9 [facility] Comment on above: IG% - Immature Granu locytes (promyelocytes, myelocytes and metamyelocytes) > 1% indicates that a LEFT SHIFT is Present. Lymphocytes Auto (Unsp spec) [#/Vol]Ordered By: Renard Burgos on 03-11-2024 Lymphocytes (Bld) [#/Vol] 2.50 10*3/uL 0.83-4.51 [facility] Lymphocytes/100 WBC Auto (Un sp spec)Ordered By: Renard Burgos on 03-11-2024 Lymphocytes/100 WBC (Bld) 25.6 % 19-41 [facility] MCV (mean corpuscular volume ) determinationOrdered By: Renard Burgos on 03-11-2024 MCV (RBC) [Entitic vol] 91.4 fL 80-94 [facility] Mean corpuscular hemoglobin (MCH) determinationOrdered By: Renard Burgos on 03-11-2024 MCH (RBC) [Entitic mass] 30.4 pg 27.0-32.0 [facility] Mean corpuscular hemoglobin concentration (MCHC) determinationOrdered By: Renard Burgos on 03-11-2024 MCHC (RBC) [Mass/Vol] 33.3 g/dL 32-36 [facility] Mean platelet volume determi nationOrdered By: Renard Burgos on 03-11-2024 Platelet mean volume (Bld) [Entitic vol] 11.0 fL 6.2-12.0 [facility] Monocyte percentageOrdered B y: Renard Burgos on 03-11-2024 Monocytes/100 WBC (Bld) 9.0 % 0-10 [facility] Neutrophil percentageOrdered By: Renard Burgos on 03-11-2024 Neutrophils/100 WBC (Bld) 63.8 % 47-70 [facility] Nucleated red blood cell per centageOrdered By: Renard Burgos on 03-11-2024 Nucleated RBC/100 WBC (Bld) [Ratio] 0 % 0-5 [facility] Platelet countOrdered By: Garrick Bhatt on 03-11-2024 Platelets (Bld) [#/Vol] 220 10*3/uL 150-450 [facility] RBC Auto (Bld) [#/Vol]Ordere d By: Renard Burgos on 03-11-2024 RBC (Bld) [#/Vol] 4.54 10*6/uL Low 4.6-6.2 [facility] White blood cell (WBC) count Ordered By: Renard Burgos on 03-11-2024 WBC (Bld) [#/Vol] 9.8 10*3/uL 4.4-11.0 [facility] Progress Noteon 11-22-2023 Progress Note Speech-Language Pathology SPEECH LANGUAGE PATHOLOGY [facility] Modified Barium Swallow Study Patient [...] despite effort. 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 Frequency: Per treating HOG PUSHER Barriers: large osteophytes, bridging with anterior projection [...] Prior MBSS?: No, unable to locate in [facility] Current Diet: Puree diet with ?liquid (no information from [place]) Textures tested: - thin liquid, (cup edge) - mildly thick liquid, (cup edge) - puree, (teaspoon) Patient position: lateral Past Medical History: Past Medical History: Diagnosis Date TREVER (acute kidney injury) (CMS/HCC) ([facility]) Alcohol abuse 07/08/2018 Anxiety C1 spinal cord injury ([facility]/HCC) ([facility]) Depression Fall 06/2018 Schizophrenia ([facility]) Past Surgical History: Past Surgical History: Procedure Laterality Date CERVICAL FUSION 07/09/2014 C2-6 cervical fusion GASTROSTOMY TUBE PLACEMENT 07/13/2018 TRACHEOSTOMY 07/13/2018 Admission Diagnosis: Patient Active Problem List Diagnosis Date Noted Respiratory syncytial virus (RSV) 03/22/2021 Hypoxia 03/19/2021 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[facility]. [facility]/HCC) ([facility]) 08/16/2018 Chronic latent schizophrenia ([facility]) 08/15/2018 Prolonged Q-T interval on ECG 08/15/2018 Abdominal wall abscess 08/15/2018 Central cord syndrome ([facility]/HCC) ([facility]) 08/15/2018 Respiratory failure after trauma ([facility]) 08/15/2018 Pressure ulcer of sacral region, stage 2 ([facility]) 08/09/2018 Urinary retention 07/28/2018 Acute respiratory failure with hypoxia ([facility]) 07/26/2018 Mild bibasilar atelectasis 07/26/2018 Hospital-acquired pneumonia 07/26/2018 Bilateral pleural effusion 07/26/2018 Ileus (CMS/HCC) ([facility]) 07/23/2018 TREVER (acute kidney [...] from 2019. Pt is currently decannulated. 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 Noted very large connective [...] spill (more content not included)... Normal [facility] RF videography Hypopharynx a nd Esophagus Views for swallowing function W speech and W barium contrast Rosalino 11-22-2023 Abnormal findings as described above. Please refer to the speech pathologist 's report for additional details and recommendations. Report Dictated on Electronically Signed By: Nir Cancino MD Electronically Signed Date/Time: 11/22/2023 1:57 PM [facility] RADIOLOGY SYSTEM [facility] Name[facility] 1955 [id number] Exam Date/Time: 11/22/2023 12:53 Procedure: FL MODIFIED [...] not visualized in this exam for evaluation. [facility] Nir Cancino MD - 11/22/2023 Patient Name: KATHYA HOOPER : 1955 [id number] Exam Date/Time: 11/22/2023 12:53 Procedure: FL MODIFIED [...] Electronically Signed Date/Time: 11/22/2023 1:57 PM EDT [facility] Radiology Study observation (narrative) [facility] alth RF videography Hypopharynx a nd Esophagus Views for swallowing function W speech and W barium contrast POOrdered By: Nir Cancino on 11-22-2023 [facility] Work Phone: CBC W Auto Differential pane l (Bld)on 10-02-2023 Basophils (Bld) [#/Vol] 0.0 10*3/uL 0.0 - 0.2 10*3/uL [facility] Basophils/100 WBC (Bld) 0.3 % 0.0 - 2.0 % [facility] Eosinophils (Bld) [#/Vol] 0.0 10*3/uL 0.0 - 0.5 10*3/uL [facility] Eosinophils/100 WBC (Bld) 0.0 % 0.0 - 6.0 % [facility] Erythrocyte distribution width (RBC) [Ratio] 13.0 % 11.5 - 15.0 % [facility] Hematocrit (Bld) [Volume fraction] 37.8 % Low 40.0 - 52.0 % [facility] Hemoglobin (Bld) [Mass/Vol] 13.0 g/dL 13.0 - 18.0 g/dL [facility] Immature granulocytes (Bld) [#/Vol] 0.1 10*3/uL High NINF - 0.1 10*3/uL [facility] Immature granulocytes/100 WBC (Bld) 0.5 % 0.0 - 2.0 % [facility] Interpretation and review of laboratory results Abnormal [facility] Lymphocytes (Bld) [#/Vol] 0.9 10*3/uL Low 1.0 - 4.3 10*3/uL [facility] Lymphocytes/100 WBC (Bld) 8.4 % Low 15.0 - 45.0 % [facility] MCH (RBC) [Entitic mass] 30.3 pg 26.0 - 34.0 pg [facility] MCHC (RBC) [Mass/Vol] 34.4 % 30.5 - 36.0 % [facility] MCV (RBC) [Entitic vol] 88.1 fL 77.0 - 99.0 fL [facility] Monocytes (Bld) [#/Vol] 0.9 10*3/uL 0.0 - 0.9 10*3/uL [facility] Monocytes/100 WBC (Bld) 8.2 % 5.0 - 13.0 % [facility] Neutrophils (Bld) [#/Vol] 8.9 10*3/uL High 1.8 - 7.5 10*3/uL [facility] Neutrophils/100 WBC (Bld) 82.6 % High 38.0 - 82.0 % [facility] Nucleated RBC/100 WBC (Bld) [Ratio] 0.0 % [facility] Platelet mean volume (Bld) [Entitic vol] 10.7 fL 9.0 - 12.7 fL [facility] Platelets (Bld) [#/Vol] 148 10*3/uL 140 - 440 10*3/uL [facility] RBC (Bld) [#/Vol] 4.29 10*6/uL Low 4.40 - 5.9 0 10*6/uL [facility] WBC (Bld) [#/Vol] 10.7 10*3/uL 3.6 - 10.7 10*3/uL [facility] CBC WITH AUTO DIFFERENTIALon 10-02-2023 Basophils (Bld) [#/Vol] 0.0 10*3/uL Normal 0.0-0.2 [facility] Comment on above: Performed By: #### L [id number] #### Steam Conditioner Filling: CYNDI LILLY ([phone]) [facility] ([facility]) [address] Basophils/100 WBC (Bld) 0.3 % Normal 0.0-2.0 [facility] Comment on above: Performed By: #### L [id number] #### Steam Conditioner Filling: CYNDI LILLY ([phone]) [facility] ([facility]) [address] [place] [address] Eosinophils (Bld) [#/Vol] 0.0 10*3/uL Normal 0.0-0.5 [facility] Comment on above: Performed By: #### L [id number] #### Steam Conditioner Filling: CYNDI LILLY ([phone]) [facility] ([facility]) [address] Eosinophils/100 WBC (Bld) 0.0 % Normal 0.0-6.0 [facility] Comment on above: Performed By: #### L [id number] #### Steam Conditioner Filling: CYNDI LILLY ([phone]) [facility] ([facility]) [address] Erythrocyte distribution width (RBC) [Ratio] 13.0 % Normal 11.5-15.0 [facility] Comment on above: Performed By: #### L [id number] #### Steam Conditioner Filling: CYNDI LILLY ([phone]) [facility] [address] Hematocrit (Bld) [Volume fraction] 37.8 % Low 40.0-52.0 [facility] Comment on above: Performed By: #### L [id number] #### Steam Conditioner Filling: CYNDI LILLY ([phone]) [facility] ([facility]) [address] Hemoglobin (Bld) [Mass/Vol] 13.0 g/dL Normal 13.0-18.0 [facility] Comment on above: Performed By: #### L [id number] #### Steam Conditioner Filling: CYNDI LILLY ([phone]) [facility] ([facility]) [address] IMMATURE GRANS % 0.5 % Normal 0.0-2.0 [facility] Comment on above: Performed By: #### L [id number] #### Steam Conditioner Filling: CYNDI LILLY ([phone]) [facility] ([facility]) [address] IMMATURE GRANS ABSOLUTE 0.1 10*3/uL High <0.1 [facility] Comment on above: Performed By: #### L [id number] #### Steam Conditioner Filling: CYNDI LILLY ([phone]) [facility] ([facility]) [address] Lymphocytes (Bld) [#/Vol] 0.9 10*3/uL Low 1.0-4.3 [facility] Comment on above: Performed By: #### L [id number] #### Steam Conditioner Filling: CYNDI LILLY ([phone]) [facility] ([facility]) [address] [place] [address] [place] Lymphocytes/100 WBC (Bld) 8.4 % Low 15.0-45.0 [facility] Comment on above: Performed By: #### L [id number] #### Steam Conditioner Filling: CYNDI DRIVERRADHA ([phone]) [facility] ([facility]) [address] MCH (RBC) [Entitic mass] 30.3 pg Normal 26.0-34.0 [facility] Comment on above: Performed By: #### L [id number] #### Steam Conditioner Filling: CYNDI DRIVERRADHA ([phone]) [facility] ([facility]) [address] MCHC 34.4 % Normal 30.5-36.0 [facility] Comment on above: Performed By: #### L [id number] #### Steam Conditioner Filling: CYNDI DRIVERRADHA ([phone]) [facility] ([facility]) [address] MCV (RBC) [Entitic vol] 88.1 fL Normal 77.0-99.0 [facility] Comment on above: Performed By: #### L [id number] #### Steam Conditioner Filling: CYNDI LILLY ([phone]) [facility] ([facility]) [address] Monocytes (Bld) [#/Vol] 0.9 10*3/uL Normal 0.0-0.9 [facility] Comment on above: Performed By: #### L [id number] #### Steam Conditioner Filling: CYNDI LILLY ([phone]) [facility] ([facility]) [address] [place] [address] [place] Monocytes/100 WBC (Bld) 8.2 % Normal 5.0-13.0 [facility] Comment on above: Performed By: #### L [id number] #### Steam Conditioner Filling: CYNDI LILLY ([phone]) [facility] ([facility]) [address] NEUTROPHILS ABSOLUTE 8.9 10*3/uL High 1.8-7.5 [facility] Comment on above: Performed By: #### L [id number] #### Steam Conditioner Filling: CYNDI LILLY ([phone]) [facility] [place] ([facility]) [address] Neutrophils/100 WBC (Bld) 82.6 % High 38.0-82.0 [facility] Comment on above: Performed By: #### L [id number] #### Steam Conditioner Filling: CYNDI LILLY ([phone]) [facility] [place] ([facility]) [address] NRBC 0.0 /100 WBCs Normal 0.0-2.0 [facility] Comment on above: Performed By: #### L [id number] #### Steam Conditioner Filling: CYNDI LILLY ([phone]) [facility] ([facility]) [address] Platelet mean volume (Bld) [Entitic vol] 10.7 fL Normal 9.0-12.7 [facility] Comment on above: Performed By: #### L [id number] #### Steam Conditioner Filling: CYNDI LILLY ([phone]) [facility] [place] ([facility]) [address] [place] [address] [place] Platelets (Bld) [#/Vol] 148 10*3/uL Normal 140-440 [facility] Comment on above: Performed By: #### L [id number] #### Steam Conditioner Filling: CYNDI LILLY ([phone]) [facility] [place] ([facility]) [address] [place] [address] [place] RBC (Bld) [#/Vol] 4.29 10*6/uL Low 4.40-5.90 [facility] Comment on above: Performed By: #### L [id number] #### Steam Conditioner Filling: CYNDI LILLY ([phone]) [facility] [place] ([facility]) [address] [place] [address] [place] WBC (Bld) [#/Vol] 10.7 10*3/uL Normal 3.6-10.7 [facility] Comment on above: Performed By: #### L [id number] #### Steam Conditioner Filling: CYNDI LILLY ([phone]) [facility] [place] ([facility]) [address] COMPREHENSIVE METABOLIC PANE Reji 10-02-2023 Albumin [Mass/Vol] 3.7 g/dL Normal 3.5-5.0 [facility] Comment on above: Performed By: #### L [id number], [id number] ####Steam Conditioner Filling: CYNDI LILLY ([phone])[facility] [place] ([facility])[address] ALP [Catalytic activity/Vol] 78 U/L Normal 38-126 [facility] Comment on above: Performed By: #### L [id number], [id number] ####Steam Conditioner Filling: CYNDI LILLY ([phone])[facility] [place] ([facility])[address] ALT [Catalytic activity/Vol] 21 U/L Normal 0-49 [facility] Comment on above: Performed By: #### L [id number], [id number] ####Steam Conditioner Filling: CYNDI LILLY ([phone])[facility] [place] ([facility])[address] Anion gap [Moles/Vol] 10 mmol/L Normal 3-13 [facility] Comment on above: Performed By: #### L [id number], [id number] ####Steam Conditioner Filling: CYNDI LILLY ([phone])[facility] [place] ([facility])[address] AST [Catalytic activity/Vol] 29 U/L Normal 15-46 [facility] Comment on above: Performed By: #### L [id number], [id number] ####Steam Conditioner Filling: CYNDI LILLY ([phone])[facility] [place] ([facility])[address] Bilirubin [Mass/Vol] 1.1 mg/dL Normal 0.2-1.3 [facility] Comment on above: Performed By: #### Alban AB17, [id number] ####Steam Conditioner Filling: CYNDI LILLY ([phone])[facility] [address] ([facility])[address] Calcium [Mass/Vol] 7.8 mg/dL Low 8.4-10.4 [facility] Comment on above: Performed By: #### L [id number], [id number] ####Steam Conditioner Filling: CYNDI LILLY ([phone])[facility] ([facility])[address] Chloride [Moles/Vol] 102 mmol/L Normal 98-107 [facility] Comment on above: Performed By: #### [place] AB17, [id number] ####Steam Conditioner Filling: CYNDI LILLY ([phone])[facility] ([facility])[address] CO2 [Moles/Vol] 23 mmol/L Normal 22-30 [facility] Comment on above: Performed By: #### [place] AB17, [id number] ####Steam Conditioner Filling: CYNDI LILLY ([phone])[facility] ([facility] Creatinine [Mass/Vol] 0.58 mg/dL Low 0.66-1.25 [facility] Comment on above: Performed By: #### L AB17, [id number] ####Steam Conditioner Filling: CYNDI LILLY ([phone])[facility] ([facility])[address] GLOMERULAR FILTRATION RATE ML/MIN/1.73 SQ M.PREDICTED >90.0 Normal >60.0 [facility] Comment on above: Result Comment: Calc ulation based on the Chronic Kidney Disease Epidemiology Collaboration (CKD-EPI) equation refit without adjustment for race Performed By: #### L AB17, [id number] ####Steam Conditioner Filling: CYNDI LILLY ([phone])[facility] [address] ([facility])[address] Glucose [Mass/Vol] 111 mg/dL High 70-100 [facility] Comment on above: Performed By: #### L AB17, [id number] ####Steam Conditioner Filling: CYNDI LILLY ([phone])[facility] ([facility])[address] Potassium [Moles/Vol] 4.0 mmol/L Normal 3.5-5.1 [facility] Comment on above: Performed By: #### L AB17, [id number] ####Steam Conditioner Filling: CYNDI LILLY ([phone])[facility] ([facility])[address] Protein [Mass/Vol] 6.5 g/dL Normal 6.3-8.2 [facility] Comment on above: Performed By: #### L AB17, [id number] ####Steam Conditioner Filling: CYNDI LILLY ([phone])[facility] ([facility])[address] Sodium [Moles/Vol] 135 mmol/L Normal 135-145 [facility] Comment on above: Performed By: #### L AB17, [id number] ####Steam Conditioner Filling: CYNDI LILLY ([phone])[facility] ([facility])[address] Urea nitrogen [Mass/Vol] 18 mg/dL Normal 9-20 [facility] Comment on above: Performed By: #### L AB17, [id number] ####Steam Conditioner Filling: CYNDI LILLY ([phone])[facility] ([facility])[address] HEAD WO IV CONTRASTon CT HEAD WO IV CONTRAST Patient Name: KATHYA YU : 1955 Exam Date/Time: 10/02/2023 11:03 Procedure: CT HEAD WO IV CONTRAST Ordering Provider: TOLEDO AMY Reason For Exam: Neuro deficit, acute, stroke suspected EXAMINATION: CT HEAD WO IV CONTRAST HISTORY: Neuro deficit, acute, stroke suspected - - - - - [id number] - - - - TECHNIQUE: CT head [...] she has seen him for that day, 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 EMS states [...] no complaints at this time. Normal [facility] CT Head WO contraston [address] evidence of an acute intracranial abnormality. Report Dictated on Electronically Signed By: Maria Eugenia Ruiz MD Electronically Signed Date/Time: 10/02/2023 11:09 AM EDT [facility] Patient Name: KATHYA HOOPER : 1955 Exam Date/Time: 10/02/2023 11:03 Procedure: CT HEAD WO IV CONTRAST Ordering Provider: TOLEDO AMY Reason For Exam: Neuro deficit, acute, stroke suspected EXAMINATION: CT HEAD WO IV CONTRAST HISTORY: Neuro deficit, acute, stroke suspected - - - - - [id number] - - - - TECHNIQUE: CT head [...] stroke suspected - - - - - [id number] - - - - TECHNIQUE: CT head [...] Electronically Signed Date/Time: 10/02/2023 11:09 AM EDT [facility] Radiology Study observation (narrative) [facility] He alth CT Head WO contrastOrdered B y: Maria Eugenia Joseph on 10-02-2023 [facility] [place] Work Phone: Comprehensive metabolic 1998 panelon 10-02-2023 Albumin [Mass/Vol] 3.7 g/dL 3.5 - 5.0 g/dL [facility] ALP [Catalytic activity/Vol] 78 U/L 38 - 126 U/L [facility] ALT [Catalytic activity/Vol] 21 U/L 0 - 49 U/L [facility] Anion gap [Moles/Vol] 10 mmol/L 3 - 13 mmol/L [facility] AST [Catalytic activity/Vol] 29 U/L 15 - 46 U/L [facility] Bilirubin [Mass/Vol] 1.1 mg/dL 0.2 - 1 .3 mg/dL [facility] Calcium [Mass/Vol] 7.8 mg/dL Low 8.4 - 10. 4 mg/dL [facility] Chloride [Moles/Vol] 102 mmol/L 98 - 10 7 mmol/L [facility] CO2 [Moles/Vol] 23 mmol/L 22 - 30 mmol/L [facility] Creatinine [Mass/Vol] 0.58 mg/dL Low 0.66 - 1.25 mg/dL [facility] GFR/1.73 sq M.predicted MDRD (S/P/Bld) [Vol rate/Area] - PINF [facility] Comment on above: Calculation based on the Chronic Kidney Disease Epidemiology Collaboration (CKD-EPI) equation refit without adjustment for race Glucose [Mass/Vol] 111 mg/dL High 70 - 100 mg/dL [facility] Interpretation and review of laboratory results Abnormal [facility] Potassium [Moles/Vol] 4.0 mmol/L 3.5 - 5.1 mmol/L [facility] Protein [Mass/Vol] 6.5 g/dL 6.3 - 8.2 g/dL [facility] Sodium [Moles/Vol] 135 mmol/L 135 - 145 mmol/L [facility] Urea nitrogen [Mass/Vol] 18 mg/dL 9 - 20 mg/dL [facility] ECG 12-LEADon 10-02-2023 ECG 12-LEAD IMPRESSION: Sinus tachycardia Left bundle branch block ST elevation secondary to IVCD Electronically Signed On 10-02-2023 12:40:15 EDT by Fei Farooq [facility] ED Nursing Noteon 10-02-2023 ED Nursing Note [facility] at bedside at this time Mami Lantigua RN 10/02/23 1427 [facility] ED Nursing Note This RN gave report to Marnie at [facility] at this time Mami Lantigua RN 10/02/23 1358 [facility] ED Nursing Note This RN went to evaluate patient, was on 2L o2 and does not wear at baseline, plan is dc, this RN turned o2 off to trial patient, spo2 monitor on Mami Lantigua RN 10/02/23 1325 [facility] ED Nursing Note Pt to ct via cart Eloisa Alfaro RN 10/02/23 1043 [facility] ED Nursing Note Pt was brought [facility] for Left sided facial droop. Per EMS nurse is new and does not know patient very well but he is A&O x 2 at baseline. Per EMS the nurse states it was 20 mins ago. 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 EMS states [...] Hx of schizophrenia. BS 131. Normal [facility] ED Provider Noteon 4 ED Provider Note [facility] ED eMERGENCY dEPARTMENT eNCOUnter Pt Name: [...] Diagnosis Date TREVER (acute kidney injury) ([facility]) ([facility]) Alcohol abuse 07/08/2018 Anxiety C1 spinal cord injury ([facility]) ([facility]) Depression Fall [...] Interpret (more content not included)... Normal [facility] ED Provider Note Emergency Department Encounter [facility] ED Patient: Kathya Hooper : 1955 [...] are mis-transcribed.) Fei Farooq MD Acute Care [facility] Fei Farooq MD 10/02/23 1129 Normal [facility] Laboratory - Chemistry and C hemistry - challengeon 10-02-2023 Troponin I.cardiac [Mass/Vol] ng/mL NINF - 0.034 ng/mL [facility] Laboratory - Coagulationon 0 10-02-2023 aPTT Coag (PPP) [Time] 29.6 s 20.0 - 30.5 s [facility] INR Coag (PPP) [Relative time] 1.1 {INR} 0.9 - 1.1 [facility] Comment on above: Recommended Anticoag ulant [...] [Time] 11.6 s 9.0 - 12.0 s [facility] No Panel Informationon 10-01 Heart Rate 103 bpm [facility] P Dah[place] 48 degrees [facility] MS Interval 172 ms [facility] QRS [place] -38 degrees [facility] QRSD Interval 159 ms [facility]alt [facility] QT Interval 405 ms [facility] QTC Interval 532 ms [facility] T Wave [place] 109 degrees [facility] Sinus tachycardia Left bundle branch block ST elevation secondary to IVCD Electronically Signed On 10-02-2023 12:40:15 EDT by Fei Farooq Fei Lopez MD - 10/02/2023 IMPRESSION: Sinus tachycardia Left bundle branch block ST elevation secondary to IVCD Electronically Signed On 10-02-2023 12:40:15 EDT by Fei Farooq [facility] Interpretation and review of laboratory results Normal [facility] PROTIME AND APTTon aPTT Coag (Bld) [Time] 29.6 s Normal 20.0-30.5 [facility] Comment on above: Performed By: #### L [id number] ####Steam Conditioner Filling: CYNDI LILLY ([phone])[facility] ([facility])[address] [place] [address] INR Coag (PPP) [Relative time] 1.1 {INR} Normal 0.9-1.1 [facility] Comment on [...] prevent Myocardial Infarction Performed By: #### L [id number] ####Steam Conditioner Filling: CYNDI LILLY ([phone])[facility] ([facility])[address] [place] [address] PT Coag (PPP) [Time] 11.6 s Normal 9.0-12.0 [facility] Comment on above: Performed By: #### L [id number] ####Steam Conditioner Filling: CYNDI LILLY ([phone])[facility] ([facility])[address] [place] [address] TROPONIN, WITH SERIAL REFLEX on 10-02-2023 Troponin I.cardiac [Mass/Vol] ng/mL Normal <0.034 [facility] Comment on above: Result Comment: SHARON Stevens COMMENTS: Patients with high levels of Biotin oral intake (ie >5 mg/day) may have falsely decreased Troponin levels. Performed By: #### L AB17, [id number] ####Steam Conditioner Filling: CYNDI LILLY ([phone])[facility] ([facility])[address] [place] [address] Troponin I.cardiac [Mass/Vol ]on 10-02-2023 Interpretation and review of laboratory results Normal [facility] Patients with high levels of Biotin oral intake (ie >5 mg/day) may have falsely decreased Troponin levels. [facility] XR Chest Single viewon 10-01 No acute cardiopulmonary disease. Report Dictated on Electronically Signed By: Maria Eugenia Ruiz MD Electronically Signed Date/Time: 10/02/2023 11:06 AM EDT [facility] Patient Name: KATHYA HOOPER : [...] spine and shoulders. No acute osseous findings. [facility] Maria Eugenia Ruiz MD - [...] Electronically Signed Date/Time: 10/02/2023 11:06 AM EDT [facility] Radiology Study observation (narrative) [facility] Absolute lymphocyte countOrd ered By: Renard Burgos on 08-07-2023 Lymphocytes Auto (Unsp spec) [#/Vol] 2.23 10*3/uL 0.83-4.51 [facility] Automated lymphocyte count a s percentage of total leukocytesOrdered By: Renard Burgos on 08-07-2023 Lymphocytes/100 WBC Auto (Unsp spec) 23.9 % 19-41 [facility] Basophil percentageOrdered B y: Renard Burgos on 08-07-2023 Basophils/100 WBC (Bld) 0.4 % 0-1 [facility] Eosinophils/100 WBC (Bld) 0.4 % 0-5 [facility] Hemoglobin (Bld) [Mass/Vol] 13.9 g/dL 13.0-16.5 [facility] Monocytes/100 WBC (Bld) 8.0 % 0-10 [facility] Neutrophils (Bld) [#/Vol] 6.2 10*3/uL 2.0-7.7 [facility] Neutrophils/100 WBC (Bld) 66.9 % 47-70 [facility] WBC (Bld) [#/Vol] 9.3 10*3/uL 4.4-11.0 [facility] Determination of erythrocyte mean corpuscular volume (MCV)Ordered By: Renard Burgos on 08-07-2023 MCV (RBC) [Entitic vol] 90.0 fL 80-94 [facility] Erythrocyte distribution wid th ratioOrdered By: Renard Burgos on 08-07-2023 Erythrocyte distribution width (RBC) [Ratio] 13.0 % 11.6-14.6 [facility] Erythrocyte distribution wid th standard deviationOrdered By: Renard Burgos on 08-07-2023 Erythrocyte distribution width (RBC) [Entitic vol] 42.5 fL 35.1-43.9 [facility] Hematocrit Auto (Bld) [Volum e fraction]Ordered By: Renard Burgos on 08-07-2023 Hematocrit (Bld) [Volume fraction] 42.5 % 40-54 [facility] Immature granulocytes/100 WB C Auto (Bld)Ordered By: Renard Burgos on 08-07-2023 Immature granulocytes/100 WBC (Bld) 0.400 % 0.0-0.9 [facility] Comment on above: IG% - Immature Granu locytes (promyelocytes, myelocytes and metamyelocytes) > 1% indicates that a LEFT SHIFT is Present. Laboratory - Hematology and Cell countsOrdered By: Renard Burgos on 08-07-2023 MCH (RBC) [Entitic mass] 29.4 pg 27.0-32.0 [facility] MCHC (RBC) [Mass/Vol] 32.7 g/dL 32-36 [facility] Nucleated RBC/100 WBC (Bld) [Ratio] 0 % 0-5 [facility] Platelet mean volume (Bld) [Entitic vol] 10.7 fL 6.2-12.0 [facility] Platelets (Bld) [#/Vol] 210 10*3/uL 150-450 [facility] RBC Auto (Bld) [#/Vol]Ordere d By: Renard Burgos on 08-07-2023 RBC (Bld) [#/Vol] 4.72 10*6/uL 4.6-6.2 [facility] Absolute lymphocyte countOrd ered By: Renard Burgos on 07-31-2023 Lymphocytes Auto (Unsp spec) [#/Vol] 2.04 10*3/uL 0.83-4.51 [facility] Automated lymphocyte count a s percentage of total leukocytesOrdered By: Renard Burgos on 07-31-2023 Lymphocytes/100 WBC Auto (Unsp spec) 24.2 % 19-41 [facility] Basophil percentageOrdered B y: Renard Burgos on 07-31-2023 Basophils/100 WBC (Bld) 0.6 % 0-1 [facility] Eosinophils/100 WBC (Bld) 0.6 % 0-5 [facility] Hemoglobin (Bld) [Mass/Vol] 13.9 g/dL 13.0-16.5 [facility] Monocytes/100 WBC (Bld) 8.5 % 0-10 [facility] Neutrophils (Bld) [#/Vol] 5.5 10*3/uL 2.0-7.7 [facility] Neutrophils/100 WBC (Bld) 65.7 % 47-70 [facility] WBC (Bld) [#/Vol] 8.4 10*3/uL 4.4-11.0 [facility] Determination of erythrocyte mean corpuscular volume (MCV)Ordered By: Renard Burgos on 07-31-2023 MCV (RBC) [Entitic vol] 89.7 fL 80-94 [facility] Erythrocyte distribution wid th ratioOrdered By: Renard Burgos on 07-31-2023 Erythrocyte distribution width (RBC) [Ratio] 12.8 % 11.6-14.6 [facility] Erythrocyte distribution wid th standard deviationOrdered By: Renard Burgos on 07-31-2023 Erythrocyte distribution width (RBC) [Entitic vol] 42.2 fL 35.1-43.9 [facility] Hematocrit Auto (Bld) [Volum e fraction]Ordered By: Renard Burgos on 07-31-2023 Hematocrit (Bld) [Volume fraction] 41.7 % 40-54 [facility] Immature granulocytes/100 WB C Auto (Bld)Ordered By: Renard Burgos on 07-31-2023 Immature granulocytes/100 WBC (Bld) 0.400 % 0.0-0.9 [facility] Comment on above: IG% - Immature Granu locytes (promyelocytes, myelocytes and metamyelocytes) > 1% indicates that a LEFT SHIFT is Present. Laboratory - Hematology and Cell countsOrdered By: Renard Burgos on 07-31-2023 MCH (RBC) [Entitic mass] 29.9 pg 27.0-32.0 [facility] MCHC (RBC) [Mass/Vol] 33.3 g/dL 32-36 [facility] Nucleated RBC/100 WBC (Bld) [Ratio] 0 % 0-5 [facility] Platelet mean volume (Bld) [Entitic vol] 10.6 fL 6.2-12.0 [facility] Platelets (Bld) [#/Vol] 201 10*3/uL 150-450 [facility] RBC Auto (Bld) [#/Vol]Ordere d By: Renard Burgos on 07-31-2023 RBC (Bld) [#/Vol] 4.65 10*6/uL 4.6-6.2 [facility] Absolute lymphocyte countOrd ered By: Renard Burgos on 07-24-2023 Lymphocytes Auto (Unsp spec) [#/Vol] 2.00 10*3/uL 0.83-4.51 [facility] Automated lymphocyte count a s percentage of total leukocytesOrdered By: Renard Burgos on 07-24-2023 Lymphocytes/100 WBC Auto (Unsp spec) 26.2 % 19-41 [facility] Basophil percentageOrdered B y: Renard Burgos on 07-24-2023 Basophils/100 WBC (Bld) 0.7 % 0-1 [facility] Eosinophils/100 WBC (Bld) 0.7 % 0-5 [facility] Hemoglobin (Bld) [Mass/Vol] 14.2 g/dL 13.0-16.5 [facility] Monocytes/100 WBC (Bld) 6.4 % 0-10 [facility] Neutrophils (Bld) [#/Vol] 5.0 10*3/uL 2.0-7.7 [facility] Neutrophils/100 WBC (Bld) 65.6 % 47-70 [facility] WBC (Bld) [#/Vol] 7.6 10*3/uL 4.4-11.0 [facility] Determination of erythrocyte mean corpuscular volume (MCV)Ordered By: Renard Burgos on 07-24-2023 MCV (RBC) [Entitic vol] 89.8 fL 80-94 [facility] Erythrocyte distribution wid th ratioOrdered By: Renard Burgos on 07-24-2023 Erythrocyte distribution width (RBC) [Ratio] 12.8 % 11.6-14.6 [facility] Erythrocyte distribution wid th standard deviationOrdered By: Renard Burgos on 07-24-2023 Erythrocyte distribution width (RBC) [Entitic vol] 42.0 fL 35.1-43.9 [facility] Hematocrit Auto (Bld) [Volum e fraction]Ordered By: Renard Burgos on 07-24-2023 Hematocrit (Bld) [Volume fraction] 43.3 % 40-54 [facility] Immature granulocytes/100 WB C Auto (Bld)Ordered By: Renard Burgos on 07-24-2023 Immature granulocytes/100 WBC (Bld) 0.400 % 0.0-0.9 [facility] Comment on above: IG% - Immature Granu locytes (promyelocytes, myelocytes and metamyelocytes) > 1% indicates that a LEFT SHIFT is Present. Laboratory - Hematology and Cell countsOrdered By: Renard Burgos on 07-24-2023 MCH (RBC) [Entitic mass] 29.5 pg 27.0-32.0 [facility] MCHC (RBC) [Mass/Vol] 32.8 g/dL 32-36 [facility] Nucleated RBC/100 WBC (Bld) [Ratio] 0 % 0-5 [facility] Platelet mean volume (Bld) [Entitic vol] 11.0 fL 6.2-12.0 [facility] Platelets (Bld) [#/Vol] 215 10*3/uL 150-450 [facility] RBC Auto (Bld) [#/Vol]Ordere d By: Renard Burgos on 07-24-2023 RBC (Bld) [#/Vol] 4.82 10*6/uL 4.6-6.2 [facility] Absolute lymphocyte countOrd ered By: Renard Burgos on 07-17-2023 Lymphocytes Auto (Unsp spec) [#/Vol] 2.22 10*3/uL 0.83-4.51 [facility] Automated lymphocyte count a s percentage of total leukocytesOrdered By: Renard Burgos on 07-17-2023 Lymphocytes/100 WBC Auto (Unsp spec) 25.4 % 19-41 [facility] Basophil percentageOrdered B y: Renard Burgos on 07-17-2023 Basophils/100 WBC (Bld) 0.5 % 0-1 [facility] Cholesterol [Mass/Vol] 126 mg/dL <200 [facility] Comment on above: <200 mg/dL Desirable 200-240 mg/dL Borderline >240 mg/dL High Risk Eosinophils/100 WBC (Bld) 0.6 % 0-5 [facility] Hemoglobin (Bld) [Mass/Vol] 14.0 g/dL 13.0-16.5 [facility] Monocytes/100 WBC (Bld) 6.6 % 0-10 [facility] Neutrophils (Bld) [#/Vol] 5.8 10*3/uL 2.0-7.7 [facility] Neutrophils/100 WBC (Bld) 66.4 % 47-70 [facility] Triglyceride [Mass/Vol] 176 mg/dL <199 [facility] Comment on above: The drugs N-Acetylcy steine and Metamizole may falsely depress this assay.Serum Triglycerides Reference Interval Normal <150 mg/dL Borderline high 150 - 199 mg/dL High 200 - 499 mg/dL Very High > or = 500 mg/dL WBC (Bld) [#/Vol] 8.7 10*3/uL 4.4-11.0 [facility] Determination of erythrocyte mean corpuscular volume (MCV)Ordered By: Renard Burgos on 07-17-2023 MCV (RBC) [Entitic vol] 90.5 fL 80-94 [facility] Erythrocyte distribution wid th ratioOrdered By: Renard Burgos on 07-17-2023 Erythrocyte distribution width (RBC) [Ratio] 12.4 % 11.6-14.6 [facility] Erythrocyte distribution wid th standard deviationOrdered By: Renard Burgos on 07-17-2023 Erythrocyte distribution width (RBC) [Entitic vol] 41.1 fL 35.1-43.9 [facility] Hematocrit Auto (Bld) [Volum e fraction]Ordered By: Renard Burgos on 07-17-2023 Hematocrit (Bld) [Volume fraction] 42.8 % 40-54 [facility] Immature granulocytes/100 WB C Auto (Bld)Ordered By: Renard Burgos on 07-17-2023 Immature granulocytes/100 WBC (Bld) 0.500 % 0.0-0.9 [facility] Comment on above: IG% - Immature Granu locytes (promyelocytes, myelocytes and metamyelocytes) > 1% indicates that a LEFT SHIFT is Present. Laboratory - Chemistry and C hemistry - challengeOrdered By: Renard Burgos on 07-17-2023 Cholesterol in HDL [Mass/Vol] 28 mg/dL >40 [facility] Comment on above: The drugs N-Acetylcy steine and Metamizole may falsely depress this assay. Reference Range HDL <40 mg/dL Low HDL Cholesterol HDL >or= 60 mg/dL High HDL Cholesterol Cholesterol in LDL [Mass/Vol] 63 mg/dL 0-130 [facility] Laboratory - Hematology and Cell countsOrdered By: Renard uBrgos on 07-17-2023 MCH (RBC) [Entitic mass] 29.6 pg 27.0-32.0 [facility] MCHC (RBC) [Mass/Vol] 32.7 g/dL 32-36 [facility] Nucleated RBC/100 WBC (Bld) [Ratio] 0 % 0-5 [facility] Platelet mean volume (Bld) [Entitic vol] 10.9 fL 6.2-12.0 [facility] Platelets (Bld) [#/Vol] 193 10*3/uL 150-450 [facility] No Panel InformationOrdered By: Renard Burgos on 07-17-2023 Vitamin D 25-Hydroxy 33.1 ng/mL [facility] Comment on above: Vitamin D 25(OH) Sta tus Range Deficiency <20 ng/mL (50nmol/L) Insufficiency 20 - 30 ng/mL (50 - 75 nmol/L) Sufficiency 30 - 100 ng/mL (75 - 250 nmol/L) Toxicity >100 ng/mL (>250 nmol/L) VLDL Cholesterol 35 mg/dL 5-40 [facility] RBC Auto (Bld) [#/Vol]Ordere d By: Renard Burgos on 07-17-2023 RBC (Bld) [#/Vol] 4.73 10*6/uL 4.6-6.2 [facility] Absolute lymphocyte countOrd ered By: Renard Burgos on 07-10-2023 Lymphocytes Auto (Unsp spec) [#/Vol] 2.14 10*3/uL 0.83-4.51 [facility] Automated lymphocyte count a s percentage of total leukocytesOrdered By: Renard Burgos on 07-10-2023 Lymphocytes/100 WBC Auto (Unsp spec) 24.7 % 19-41 [facility] Basophil percentageOrdered B y: Renard Burgos on 07-10-2023 Basophils/100 WBC (Bld) 0.3 % 0-1 [facility] Eosinophils/100 WBC (Bld) 0.3 % 0-5 [facility] Hemoglobin (Bld) [Mass/Vol] 13.8 g/dL 13.0-16.5 [facility] Monocytes/100 WBC (Bld) 7.8 % 0-10 [facility] Neutrophils (Bld) [#/Vol] 5.8 10*3/uL 2.0-7.7 [facility] Neutrophils/100 WBC (Bld) 66.4 % 47-70 [facility] WBC (Bld) [#/Vol] 8.7 10*3/uL 4.4-11.0 [facility] Determination of erythrocyte mean corpuscular volume (MCV)Ordered By: Renard Burgos on 07-10-2023 MCV (RBC) [Entitic vol] 88.9 fL 80-94 [facility] Erythrocyte distribution wid th ratioOrdered By: Renard Burgos on 07-10-2023 Erythrocyte distribution width (RBC) [Ratio] 12.6 % 11.6-14.6 [facility] Erythrocyte distribution wid th standard deviationOrdered By: Renard Burgos on 07-10-2023 Erythrocyte distribution width (RBC) [Entitic vol] 40.6 fL 35.1-43.9 [facility] Hematocrit Auto (Bld) [Volum e fraction]Ordered By: Renard Burgos on 07-10-2023 Hematocrit (Bld) [Volume fraction] 41.0 % 40-54 [facility] Immature granulocytes/100 WB C Auto (Bld)Ordered By: Renard Burgos on 07-10-2023 Immature granulocytes/100 WBC (Bld) 0.500 % 0.0-0.9 [facility] Comment on above: IG% - Immature Granu locytes (promyelocytes, myelocytes and metamyelocytes) > 1% indicates that a LEFT SHIFT is Present. Laboratory - Hematology and Cell countsOrdered By: Renard Burgos on 07-10-2023 MCH (RBC) [Entitic mass] 29.9 pg 27.0-32.0 [facility] MCHC (RBC) [Mass/Vol] 33.7 g/dL 32-36 [facility] Nucle[facility]/100 WBC (Bld) [Ratio] 0 % 0-5 [facility] Platelet mean volume (Bld) [Entitic vol] 11.0 fL 6.2-12.0 [facility] Platelets (Bld) [#/Vol] 215 10*3/uL 150-450 [facility] RBC Auto (Bld) [#/Vol]Ordere d By: Renard Burgos on 07-10-2023 RBC (Bld) [#/Vol] 4.61 10*6/uL 4.6-6.2 [facility] Absolute lymphocyte countOrd ered By: Renard Burgos on 07-03-2023 Lymphocytes Auto (Unsp spec) [#/Vol] 1.84 10*3/uL 0.83-4.51 [facility] Automated lymphocyte count a s percentage of total leukocytesOrdered By: Renard Burgos on 07-03-2023 Lymphocytes/100 WBC Auto (Unsp spec) 16.9 % 19-41 [facility] Basophil percentageOrdered B y: Renard Burgos on 07-03-2023 Basophil percentage 3.17 ng/mL 0.0-4.0 [facility] Comment on above: This test was perfor med using the TPSA assay method for the[employer]caster chemistry system. Values obtained with differentassay methods cannot be used interchangably.When changing PSA assays in the course of monitoring apatient, additional sequential testing should be carriedout to confirm baseline values. Basophils/100 WBC (Bld) 0.5 % 0-1 [facility] Eosinophils/100 WBC (Bld) 0.4 % 0-5 [facility] Hemoglobin (Bld) [Mass/Vol] 13.2 g/dL 13.0-16.5 [facility] Monocytes/100 WBC (Bld) 7.4 % 0-10 [facility] Neutrophils (Bld) [#/Vol] 8.1 10*3/uL 2.0-7.7 [facility] Neutrophils/100 WBC (Bld) 74.4 % 47-70 [facility] WBC (Bld) [#/Vol] 10.9 10*3/uL 4.4-11.0 [facility] Determination of erythrocyte mean corpuscular volume (MCV)Ordered By: Renard Burgos on 07-03-2023 MCV (RBC) [Entitic vol] 89.8 fL 80-94 [facility] Erythrocyte distribution wid th ratioOrdered By: Renard Burgos on 07-03-2023 Erythrocyte distribution width (RBC) [Ratio] 12.7 % 11.6-14.6 [facility] Erythrocyte distribution wid th standard deviationOrdered By: Renard Burgos on 07-03-2023 Erythrocyte distribution width (RBC) [Entitic vol] 41.9 fL 35.1-43.9 [facility] Hematocrit Auto (Bld) [Volum e fraction]Ordered By: Renard Burgos on 07-03-2023 Hematocrit (Bld) [Volume fraction] 40.3 % 40-54 [facility] Immature granulocytes/100 WB C Auto (Bld)Ordered By: Renard Burgos on 07-03-2023 Immature granulocytes/100 WBC (Bld) 0.400 % 0.0-0.9 [facility] Comment on above: IG% - Immature Granu locytes (promyelocytes, myelocytes and metamyelocytes) > 1% indicates that a LEFT SHIFT is Present. Laboratory - Hematology and Cell countsOrdered By: Renard Burgos on 07-03-2023 MCH (RBC) [Entitic mass] 29.4 pg 27.0-32.0 [facility] MCHC (RBC) [Mass/Vol] 32.8 g/dL 32-36 [facility] Nucleated RBC/100 WBC (Bld) [Ratio] 0 % 0-5 [facility] Platelet mean volume (Bld) [Entitic vol] 11.2 fL 6.2-12.0 [facility] Platelets (Bld) [#/Vol] 191 10*3/uL 150-450 [facility] RBC Auto (Bld) [#/Vol]Ordere d By: Renard Burgos on 07-03-2023 RBC (Bld) [#/Vol] 4.49 10*6/uL 4.6-6.2 [facility] Absolute lymphocyte countOrd ered By: Renard Burgos on 06-26-2023 Lymphocytes Auto (Unsp spec) [#/Vol] 2.23 10*3/uL 0.83-4.51 [facility] Automated lymphocyte count a s percentage of total leukocytesOrdered By: Renard Burgos on 06-26-2023 Lymphocytes/100 WBC Auto (Unsp spec) 27.3 % 19-41 [facility] Basophil percentageOrdered B y: Renard Burgos on 06-26-2023 Basophils/100 WBC (Bld) 0.5 % 0-1 [facility] Eosinophils/100 WBC (Bld) 0.7 % 0-5 [facility] Hemoglobin (Bld) [Mass/Vol] 13.7 g/dL 13.0-16.5 [facility] Monocytes/100 WBC (Bld) 9.5 % 0-10 [facility] Neutrophils (Bld) [#/Vol] 5.1 10*3/uL 2.0-7.7 [facility] Neutrophils/100 WBC (Bld) 61.8 % 47-70 [facility] WBC (Bld) [#/Vol] 8.2 10*3/uL 4.4-11.0 [facility] Determination of erythrocyte mean corpuscular volume (MCV)Ordered By: Renard Burgos on 06-26-2023 MCV (RBC) [Entitic vol] 92.2 fL 80-94 [facility] Erythrocyte distribution wid th ratioOrdered By: Renard Burgos on 06-26-2023 Erythrocyte distribution width (RBC) [Ratio] 12.7 % 11.6-14.6 [facility] Erythrocyte distribution wid th standard deviationOrdered By: Renard Burgos on 06-26-2023 Erythrocyte distribution width (RBC) [Entitic vol] 42.8 fL 35.1-43.9 [facility] Hematocrit Auto (Bld) [Volum e fraction]Ordered By: Renard Burgos on 06-26-2023 Hematocrit (Bld) [Volume fraction] 42.6 % 40-54 [facility] Immature granulocytes/100 WB C Auto (Bld)Ordered By: Renard Burgos on 06-26-2023 Immature granulocytes/100 WBC (Bld) 0.200 % 0.0-0.9 [facility] Comment on above: IG% - Immature Granu locytes (promyelocytes, myelocytes and metamyelocytes) > 1% indicates that a LEFT SHIFT is Present. Laboratory - Hematology and Cell countsOrdered By: Renard Burgos on 06-26-2023 MCH (RBC) [Entitic mass] 29.7 pg 27.0-32.0 [facility] MCHC (RBC) [Mass/Vol] 32.2 g/dL 32-36 [facility] Nucleated RBC/100 WBC (Bld) [Ratio] 0 % 0-5 [facility] Platelet mean volume (Bld) [Entitic vol] 11.0 fL 6.2-12.0 [facility] Platelets (Bld) [#/Vol] 182 10*3/uL 150-450 [facility] RBC Auto (Bld) [#/Vol]Ordere d By: Renard Burgos on 06-26-2023 RBC (Bld) [#/Vol] 4.62 10*6/uL 4.6-6.2 [facility] Absolute lymphocyte countOrd ered By: Renard Burgos on 06-19-2023 Lymphocytes Auto (Unsp spec) [#/Vol] 2.13 10*3/uL 0.83-4.51 [facility] Automated lymphocyte count a s percentage of total leukocytesOrdered By: Renard Burgos on 06-19-2023 Lymphocytes/100 WBC Auto (Unsp spec) 28.8 % 19-41 [facility] Basophil percentageOrdered B y: Renard Burgos on 06-19-2023 Basophils/100 WBC (Bld) 0.5 % 0-1 [facility] Eosinophils/100 WBC (Bld) 0.5 % 0-5 [facility] Hemoglobin (Bld) [Mass/Vol] 13.7 g/dL 13.0-16.5 [facility] Monocytes/100 WBC (Bld) 8.1 % 0-10 [facility] Neutrophils (Bld) [#/Vol] 4.6 10*3/uL 2.0-7.7 [facility] Neutrophils/100 WBC (Bld) 61.6 % 47-70 [facility] WBC (Bld) [#/Vol] 7.4 10*3/uL 4.4-11.0 [facility] Determination of erythrocyte mean corpuscular volume (MCV)Ordered By: Renard Burgos on 06-19-2023 MCV (RBC) [Entitic vol] 91.7 fL 80-94 [facility] Erythrocyte distribution wid th ratioOrdered By: Renard Burgos on 06-19-2023 Erythrocyte distribution width (RBC) [Ratio] 12.7 % 11.6-14.6 [facility] Erythrocyte distribution wid th standard deviationOrdered By: Renard Burgos on 06-19-2023 Erythrocyte distribution width (RBC) [Entitic vol] 42.8 fL 35.1-43.9 [facility] Hematocrit Auto (Bld) [Volum e fraction]Ordered By: Renard Burgos on 06-19-2023 Hematocrit (Bld) [Volume fraction] 43.1 % 40-54 [facility] Immature granulocytes/100 WB C Auto (Bld)Ordered By: Renard Burgos on 06-19-2023 Immature granulocytes/100 WBC (Bld) 0.500 % 0.0-0.9 [facility] Comment on above: IG% - Immature Granu locytes (promyelocytes, myelocytes and metamyelocytes) > 1% indicates that a LEFT SHIFT is Present. Laboratory - Hematology and Cell countsOrdered By: Renard Burgos on 06-19-2023 MCH (RBC) [Entitic mass] 29.1 pg 27.0-32.0 [facility] MCHC (RBC) [Mass/Vol] 31.8 g/dL 32-36 [facility] Nucleated RBC/100 WBC (Bld) [Ratio] 0 % 0-5 [facility] Platelet mean volume (Bld) [Entitic vol] 11.1 fL 6.2-12.0 [facility] Platelets (Bld) [#/Vol] 201 10*3/uL 150-450 [facility] RBC Auto (Bld) [#/Vol]Ordere d By: Renard Burgos on 06-19-2023 RBC (Bld) [#/Vol] 4.70 10*6/uL 4.6-6.2 [facility] Absolute lymphocyte countOrd ered By: Renard Burgos on 06-12-2023 Lymphocytes Auto (Unsp spec) [#/Vol] 2.17 10*3/uL 0.83-4.51 [facility] Automated lymphocyte count a s percentage of total leukocytesOrdered By: Renard Burgos on 06-12-2023 Lymphocytes/100 WBC Auto (Unsp spec) 26.7 % 19-41 [facility] Basophil percentageOrdered B y: Renadr Burgos on 06-12-2023 Basophils/100 WBC (Bld) 0.4 % 0-1 [facility] Eosinophils/100 WBC (Bld) 0.5 % 0-5 [facility] Hemoglobin (Bld) [Mass/Vol] 13.5 g/dL 13.0-16.5 [facility] Monocytes/100 WBC (Bld) 9.0 % 0-10 [facility] Neutrophils (Bld) [#/Vol] 5.1 10*3/uL 2.0-7.7 [facility] Neutrophils/100 WBC (Bld) 63.0 % 47-70 [facility] WBC (Bld) [#/Vol] 8.1 10*3/uL 4.4-11.0 [facility] Determination of erythrocyte mean corpuscular volume (MCV)Ordered By: Renard Burgos on 06-12-2023 MCV (RBC) [Entitic vol] 91.3 fL 80-94 [facility] Erythrocyte distribution wid th ratioOrdered By: Renard Burgos on 06-12-2023 Erythrocyte distribution width (RBC) [Ratio] 12.6 % 11.6-14.6 [facility] Erythrocyte distribution wid th standard deviationOrdered By: Renard Burgos on 06-12-2023 Erythrocyte distribution width (RBC) [Entitic vol] 41.5 fL 35.1-43.9 [facility] Hematocrit Auto (Bld) [Volum e fraction]Ordered By: Renard Burgos on 06-12-2023 Hematocrit (Bld) [Volume fraction] 40.8 % 40-54 [facility] Immature granulocytes/100 WB C Auto (Bld)Ordered By: Renard Burgos on 06-12-2023 Immature granulocytes/100 WBC (Bld) 0.400 % 0.0-0.9 [facility] Comment on above: IG% - Immature Granu locytes (promyelocytes, myelocytes and metamyelocytes) > 1% indicates that a LEFT SHIFT is Present. Laboratory - Hematology and Cell countsOrdered By: Renard Burgos on 06-12-2023 MCH (RBC) [Entitic mass] 30.2 pg 27.0-32.0 [facility] MCHC (RBC) [Mass/Vol] 33.1 g/dL 32-36 [facility] Nucleated RBC/100 WBC (Bld) [Ratio] 0 % 0-5 [facility] Platelet mean volume (Bld) [Entitic vol] 11.0 fL 6.2-12.0 [facility] Platelets (Bld) [#/Vol] 195 10*3/uL 150-450 [facility] RBC Auto (Bld) [#/Vol]Ordere d By: Renard Burgos on 06-12-2023 RBC (Bld) [#/Vol] 4.47 10*6/uL 4.6-6.2 [facility] Absolute lymphocyte countOrd ered By: Renard Burgos on 06-05-2023 Lymphocytes Auto (Unsp spec) [#/Vol] 2.05 10*3/uL 0.83-4.51 [facility] Automated lymphocyte count a s percentage of total leukocytesOrdered By: Renard Burgos on 06-05-2023 Lymphocytes/100 WBC Auto (Unsp spec) 24.1 % 19-41 [facility] Basophil percentageOrdered B y: Renard Burgos on 06-05-2023 Basophils/100 WBC (Bld) 0.5 % 0-1 [facility] Eosinophils/100 WBC (Bld) 0.5 % 0-5 [facility] Hemoglobin (Bld) [Mass/Vol] 13.6 g/dL 13.0-16.5 [facility] Monocytes/100 WBC (Bld) 7.6 % 0-10 [facility] Neutrophils (Bld) [#/Vol] 5.7 10*3/uL 2.0-7.7 [facility] Neutrophils/100 WBC (Bld) 66.9 % 47-70 [facility] WBC (Bld) [#/Vol] 8.5 10*3/uL 4.4-11.0 [facility] Determination of erythrocyte mean corpuscular volume (MCV)Ordered By: Renard Burgos on 06-05-2023 MCV (RBC) [Entitic vol] 89.7 fL 80-94 [facility] Erythrocyte distribution wid th ratioOrdered By: Renard Burgos on 06-05-2023 Erythrocyte distribution width (RBC) [Ratio] 12.6 % 11.6-14.6 [facility] Erythrocyte distribution wid th standard deviationOrdered By: Renard Burgos on 06-05-2023 Erythrocyte distribution width (RBC) [Entitic vol] 41.1 fL 35.1-43.9 [facility] Hematocrit Auto (Bld) [Volum e fraction]Ordered By: Renard Burgos on 06-05-2023 Hematocrit (Bld) [Volume fraction] 41.0 % 40-54 [facility] Immature granulocytes/100 WB C Auto (Bld)Ordered By: Renard Burgos on 06-05-2023 Immature granulocytes/100 WBC (Bld) 0.400 % 0.0-0.9 [facility] Comment on above: IG% - Immature Granu locytes (promyelocytes, myelocytes and metamyelocytes) > 1% indicates that a LEFT SHIFT is Present. Laboratory - Hematology and Cell countsOrdered By: Renard Burgos on 06-05-2023 MCH (RBC) [Entitic mass] 29.8 pg 27.0-32.0 [facility] MCHC (RBC) [Mass/Vol] 33.2 g/dL 32-36 [facility] Nucleated RBC/100 WBC (Bld) [Ratio] 0 % 0-5 [facility] Platelets (Bld) [#/Vol] 193 10*3/uL 150-450 [facility] Platelet mean volume Adam-Ec ker (Bld) [Entitic vol]Ordered By: Renard Burgos on 06-05-2023 Platelet mean volume (Bld) [Entitic vol] 10.8 fL 6.2-12.0 [facility] RBC Auto (Bld) [#/Vol]Ordere d By: Renard Burgos on 06-05-2023 RBC (Bld) [#/Vol] 4.57 10*6/uL 4.6-6.2 [facility] Absolute lymphocyte countOrd ered By: Renard Burgos on 05-29-2023 Lymphocytes Auto (Unsp spec) [#/Vol] 2.32 10*3/uL 0.83-4.51 [facility] Automated lymphocyte count a s percentage of total leukocytesOrdered By: Renard Burgos on 05-29-2023 Lymphocytes/100 WBC Auto (Unsp spec) 26.7 % 19-41 [facility] Basophil percentageOrdered B y: Renard Burgos on 05-29-2023 Basophils/100 WBC (Bld) 0.6 % 0-1 [facility] Eosinophils/100 WBC (Bld) 0.5 % 0-5 [facility] Hemoglobin (Bld) [Mass/Vol] 14.2 g/dL 13.0-16.5 [facility] Monocytes/100 WBC (Bld) 6.8 % 0-10 [facility] Neutrophils (Bld) [#/Vol] 5.7 10*3/uL 2.0-7.7 [facility] Neutrophils/100 WBC (Bld) 65.2 % 47-70 [facility] WBC (Bld) [#/Vol] 8.7 10*3/uL 4.4-11.0 [facility] Determination of erythrocyte mean corpuscular volume (MCV)Ordered By: Renard Burgos on 05-29-2023 MCV (RBC) [Entitic vol] 94.0 fL 80-94 [facility] Erythrocyte distribution wid th ratioOrdered By: Renard Burgos on 05-29-2023 Erythrocyte distribution width (RBC) [Ratio] 12.6 % 11.6-14.6 [facility] Erythrocyte distribution wid th standard deviationOrdered By: Renard Burgos on 05-29-2023 Erythrocyte distribution width (RBC) [Entitic vol] 43.0 fL 35.1-43.9 [facility] Hematocrit Auto (Bld) [Volum e fraction]Ordered By: Renard Burgos on 05-29-2023 Hematocrit (Bld) [Volume fraction] 45.4 % 40-54 [facility] Immature granulocytes/100 WB C Auto (Bld)Ordered By: Renard Burgos on 05-29-2023 Immature granulocytes/100 WBC (Bld) 0.200 % 0.0-0.9 [facility] Comment on above: IG% - Immature Granu locytes (promyelocytes, myelocytes and metamyelocytes) > 1% indicates that a LEFT SHIFT is Present. Laboratory - Hematology and Cell countsOrdered By: Renard Burgos on 05-29-2023 MCH (RBC) [Entitic mass] 29.4 pg 27.0-32.0 [facility] MCHC (RBC) [Mass/Vol] 31.3 g/dL 32-36 [facility] Nucleated RBC/100 WBC (Bld) [Ratio] 0 % 0-5 [facility] Platelets (Bld) [#/Vol] 116 10*3/uL 150-450 [facility] Platelet mean volume Adam-Ec ker (Bld) [Entitic vol]Ordered By: Renard Burgos on 05-29-2023 Platelet mean volume (Bld) [Entitic vol] 11.1 fL 6.2-12.0 [facility] RBC Auto (Bld) [#/Vol]Ordere d By: Renard Burgos on 05-29-2023 RBC (Bld) [#/Vol] 4.83 10*6/uL 4.6-6.2 [facility] Absolute lymphocyte countOrd ered By: Renard Burgos on 05-22-2023 Lymphocytes Auto (Unsp spec) [#/Vol] 2.40 10*3/uL 0.83-4.51 [facility] Automated lymphocyte count a s percentage of total leukocytesOrdered By: Renard Burgos on 05-22-2023 Lymphocytes/100 WBC Auto (Unsp spec) 25.6 % 19-41 [facility] Basophil percentageOrdered B y: Renard Burgos on 05-22-2023 Basophils/100 WBC (Bld) 0.4 % 0-1 [facility] Eosinophils/100 WBC (Bld) 0.4 % 0-5 [facility] Hemoglobin (Bld) [Mass/Vol] 13.7 g/dL 13.0-16.5 [facility] Monocytes/100 WBC (Bld) 9.1 % 0-10 [facility] Neutrophils (Bld) [#/Vol] 6.0 10*3/uL 2.0-7.7 [facility] Neutrophils/100 WBC (Bld) 63.9 % 47-70 [facility] WBC (Bld) [#/Vol] 9.4 10*3/uL 4.4-11.0 [facility] Determination of erythrocyte mean corpuscular volume (MCV)Ordered By: Renard Burgos on 05-22-2023 MCV (RBC) [Entitic vol] 91.8 fL 80-94 [facility] Erythrocyte distribution wid th ratioOrdered By: Renard Burgos on 05-22-2023 Erythrocyte distribution width (RBC) [Ratio] 12.8 % 11.6-14.6 [facility] Erythrocyte distribution wid th standard deviationOrdered By: Renard Burgos on 05-22-2023 Erythrocyte distribution width (RBC) [Entitic vol] 43.4 fL 35.1-43.9 [facility] Hematocrit Auto (Bld) [Volum e fraction]Ordered By: Renard Burgos on 05-22-2023 Hematocrit (Bld) [Volume fraction] 41.5 % 40-54 [facility] Immature granulocytes/100 WB C Auto (Bld)Ordered By: Renard Burgos on 05-22-2023 Immature granulocytes/100 WBC (Bld) 0.600 % 0.0-0.9 [facility] Comment on above: IG% - Immature Granu locytes (promyelocytes, myelocytes and metamyelocytes) > 1% indicates that a LEFT SHIFT is Present. Laboratory - Hematology and Cell countsOrdered By: Renard Burgos on 05-22-2023 MCH (RBC) [Entitic mass] 30.3 pg 27.0-32.0 [facility] MCHC (RBC) [Mass/Vol] 33.0 g/dL 32-36 [facility] Nucleated RBC/100 WBC (Bld) [Ratio] 0 % 0-5 [facility] Platelets (Bld) [#/Vol] 192 10*3/uL 150-450 [facility] Platelet mean volume Adam-Ec ker (Bld) [Entitic vol]Ordered By: Renard Burgos on 05-22-2023 Platelet mean volume (Bld) [Entitic vol] 11.3 fL 6.2-12.0 [facility] RBC Auto (Bld) [#/Vol]Ordere d By: Renard Burgos on 05-22-2023 RBC (Bld) [#/Vol] 4.52 10*6/uL 4.6-6.2 [facility] Absolute lymphocyte countOrd ered By: Renard Burgos on 05-15-2023 Lymphocytes Auto (Unsp spec) [#/Vol] 2.11 10*3/uL 0.83-4.51 [facility] Basophil percentageOrdered B y: Renard Burgos on 05-15-2023 Basophils/100 WBC (Bld) 0.6 % 0-1 [facility] Eosinophils/100 WBC (Bld) 0.8 % 0-5 [facility] Neutrophils (Bld) [#/Vol] 4.9 10*3/uL 2.0-7.7 [facility] Neutrophils/100 WBC (Bld) 62.4 % 47-70 [facility] WBC (Bld) [#/Vol] 7.9 10*3/uL 4.4-11.0 [facility] Blood erythrocytes count (nu mber/volume)Ordered By: Renard Burgos on 05-15-2023 RBC (Bld) [#/Vol] 4.61 10*6/uL 4.6-6.2 [facility] Blood hemoglobin measurement (mass/volume)Ordered By: Renard Burgos on 05-15-2023 Hemoglobin (Bld) [Mass/Vol] 13.9 g/dL 13.0-16.5 [facility] Blood lymphocytes/100 leukoc ytesOrdered By: Renard Burgos on 05-15-2023 Lymphocytes/100 WBC (Bld) 26.7 % 19-41 [facility] Blood monocytes/100 leukocyt esOrdered By: Renard Burgos on 05-15-2023 Monocytes/100 WBC (Bld) 9.1 % 0-10 [facility] Blood platelet mean volumeOr dered By: Renard Burgos on 05-15-2023 Platelet mean volume (Bld) [Entitic vol] 10.7 fL 6.2-12.0 [facility] Determination of erythrocyte mean corpuscular volume (MCV)Ordered By: Renard Burgos on 05-15-2023 MCV (RBC) [Entitic vol] 90.5 fL 80-94 [facility] Hematocrit Auto (Bld) [Volum e fraction]Ordered By: Renard Burgos on 05-15-2023 Hematocrit (Bld) [Volume fraction] 41.7 % 40-54 [facility] Laboratory - Hematology and Cell countsOrdered By: Renard Burgos on 05-15-2023 Erythrocyte distribution width (RBC) [Entitic vol] 42.4 fL 35.1-43.9 [facility] Erythrocyte distribution width (RBC) [Ratio] 12.9 % 11.6-14.6 [facility] Immature granulocytes/100 WBC (Bld) 0.400 % 0.0-0.9 [facility] Comment on above: IG% - Immature Granu locytes (promyelocytes, myelocytes and metamyelocytes) > 1% indicates that a LEFT SHIFT is Present. MCH (RBC) [Entitic mass] 30.2 pg 27.0-32.0 [facility] Nucleated RBC/100 WBC (Bld) [Ratio] 0 % 0-5 [facility] MCHC Auto (RBC) [Mass/Vol]Or dered By: Renard Burgos on 05-15-2023 MCHC (RBC) [Mass/Vol] 33.3 g/dL 32-36 [facility] Platelets bldOrdered By: Lyubov Burgos on 05-15-2023 Platelets (Bld) [#/Vol] 202 10*3/uL 150-450 [facility] Absolute lymphocyte countOrd ered By: Renard Burgos on 05-08-2023 Lymphocytes Auto (Unsp spec) [#/Vol] 2.06 10*3/uL 0.83-4.51 [facility] Basophil percentageOrdered B y: Renard Burgos on 05-08-2023 Basophils/100 WBC (Bld) 0.4 % 0-1 [facility] Eosinophils/100 WBC (Bld) 0.5 % 0-5 [facility] Neutrophils (Bld) [#/Vol] 5.0 10*3/uL 2.0-7.7 [facility] Neutrophils/100 WBC (Bld) 65.7 % 47-70 [facility] WBC (Bld) [#/Vol] 7.5 10*3/uL 4.4-11.0 [facility] Blood erythrocytes count (nu mber/volume)Ordered By: Renard Burgos on 05-08-2023 RBC (Bld) [#/Vol] 4.62 10*6/uL 4.6-6.2 [facility] Blood hemoglobin measurement (mass/volume)Ordered By: Renard Burgos on 05-08-2023 Hemoglobin (Bld) [Mass/Vol] 13.6 g/dL 13.0-16.5 [facility] Blood lymphocytes/100 leukoc ytesOrdered By: Renard Burgos on 05-08-2023 Lymphocytes/100 WBC (Bld) 27.4 % 19-41 [facility] Blood monocytes/100 leukocyt esOrdered By: Renard Burgos on 05-08-2023 Monocytes/100 WBC (Bld) 5.6 % 0-10 [facility] Blood platelet mean volumeOr dered By: Renard Burgos on 05-08-2023 Platelet mean volume (Bld) [Entitic vol] 11.0 fL 6.2-12.0 [facility] Determination of erythrocyte mean corpuscular volume (MCV)Ordered By: Renard Burgos on 05-08-2023 MCV (RBC) [Entitic vol] 91.8 fL 80-94 [facility] Hematocrit Auto (Bld) [Volum e fraction]Ordered By: Renard Burgos on 05-08-2023 Hematocrit (Bld) [Volume fraction] 42.4 % 40-54 [facility] Laboratory - Hematology and Cell countsOrdered By: Renard Burgos on 05-08-2023 Erythrocyte distribution width (RBC) [Entitic vol] 43.1 fL 35.1-43.9 [facility] Erythrocyte distribution width (RBC) [Ratio] 13.0 % 11.6-14.6 [facility] Immature granulocytes/100 WBC (Bld) 0.400 % 0.0-0.9 [facility] Comment on above: IG% - Immature Granu locytes (promyelocytes, myelocytes and metamyelocytes) > 1% indicates that a LEFT SHIFT is Present. MCH (RBC) [Entitic mass] 29.4 pg 27.0-32.0 [facility] Nucleated RBC/100 WBC (Bld) [Ratio] 0 % 0-5 [facility] MCHC Auto (RBC) [Mass/Vol]Or dered By: Renard Burgos on 05-08-2023 MCHC (RBC) [Mass/Vol] 32.1 g/dL 32-36 [facility] Platelets bldOrdered By: Lyubvo lizy Loretta on 05-08-2023 Platelets (Bld) [#/Vol] 226 10*3/uL 150-450 [facility] Absolute lymphocyte countOrd ered By: Renard Burgos on 04-17-2023 Lymphocytes Auto (Unsp spec) [#/Vol] 0.92 10*3/uL 0.83-4.51 [facility] Basophil percentageOrdered B y: Renard Burgos on 04-17-2023 Basophils/100 WBC (Bld) 0.1 % 0-1 [facility] Eosinophils/100 WBC (Bld) 0.0 % 0-5 [facility] Neutrophils (Bld) [#/Vol] 6.0 10*3/uL 2.0-7.7 [facility] Neutrophils/100 WBC (Bld) 81.4 % 47-70 [facility] WBC (Bld) [#/Vol] 7.4 10*3/uL 4.4-11.0 [facility] Blood erythrocytes count (nu mber/volume)Ordered By: Renard Burgos on 04-17-2023 RBC (Bld) [#/Vol] 4.59 10*6/uL 4.6-6.2 [facility] Blood hemoglobin measurement (mass/volume)Ordered By: Renard Burgos on 04-17-2023 Hemoglobin (Bld) [Mass/Vol] 13.7 g/dL 13.0-16.5 [facility] Blood lymphocytes/100 leukoc ytesOrdered By: Renard Burgos on 04-17-2023 Lymphocytes/100 WBC (Bld) 12.5 % 19-41 [facility] Blood monocytes/100 leukocyt esOrdered By: Renard Burgos on 04-17-2023 Monocytes/100 WBC (Bld) 5.6 % 0-10 [facility] Blood platelet mean volumeOr dered By: Renard Burgos on 04-17-2023 Platelet mean volume (Bld) [Entitic vol] 10.9 fL 6.2-12.0 [facility] Determination of erythrocyte mean corpuscular volume (MCV)Ordered By: Renard Burgos on 04-17-2023 MCV (RBC) [Entitic vol] 90.8 fL 80-94 [facility] Hematocrit Auto (Bld) [Volum e fraction]Ordered By: Renard Burgos on 04-17-2023 Hematocrit (Bld) [Volume fraction] 41.7 % 40-54 [facility] Laboratory - Hematology and Cell countsOrdered By: Renard Burgos on 04-17-2023 Erythrocyte distribution width (RBC) [Entitic vol] 42.3 fL 35.1-43.9 [facility] Erythrocyte distribution width (RBC) [Ratio] 12.8 % 11.6-14.6 [facility] Immature granulocytes/100 WBC (Bld) 0.400 % 0.0-0.9 [facility] Comment on above: IG% - Immature Granu locytes (promyelocytes, myelocytes and metamyelocytes) > 1% indicates that a LEFT SHIFT is Present. MCH (RBC) [Entitic mass] 29.8 pg 27.0-32.0 [facility] Nucleated RBC/100 WBC (Bld) [Ratio] 0 % 0-5 [facility] MCHC Auto (RBC) [Mass/Vol]Or dered By: Renard Burgos on 04-17-2023 MCHC (RBC) [Mass/Vol] 32.9 g/dL 32-36 [facility] Platelets bldOrdered By: Lyubov Burgos on 04-17-2023 Platelets (Bld) [#/Vol] 194 10*3/uL 150-450 [facility] Basophil percentageOrdered B y: Renard Burgos on 04-14-2023 Bilirubin [Mass/Vol] 0.30 mg/dL 0.20-1.00 [facility] Comment on above: For patients on eltr ombopag therapy, use of Dimension Jackson TBIL is not recommended. Protein [Mass/Vol] 6.2 g/dL 6.4-8.2 [facility] Direct bilirubinOrdered By: Renard Burgos on 04-14-2023 Bilirubin.direct [Mass/Vol] 0.11 mg/dL 0.00-0.30 [facility] Laboratory - Chemistry and C hemistry - challengeOrdered By: Renard Burgos on 04-14-2023 ALP [Catalytic activity/Vol] 139 U/L 45-117 [facility] ALT [Catalytic activity/Vol] 23 U/L 16-61 [facility] Globulin (S) [Mass/Vol] 3.2 g/dL 2.2-4.2 [facility] Serum or plasma albumin gordy urement (mass/volume)Ordered By: Renard Burgos on 04-14-2023 Albumin [Mass/Vol] 3.0 g/dL 3.2-5.0 [facility] Thin prep Papanicolaou smear with manual screeningOrdered By: Renard Burgos on 04-14-2023 Thin prep Papanicolaou smear with manual screening 14 U/L 15-37 [facility] Absolute lymphocyte countOrd ered By: Renard Burgos on 04-10-2023 Lymphocytes Auto (Unsp spec) [#/Vol] 2.54 10*3/uL 0.83-4.51 [facility] Basophil percentageOrdered B y: Renard Burgos on 04-10-2023 Basophils/100 WBC (Bld) 0.5 % 0-1 [facility] Eosinophils/100 WBC (Bld) 0.5 % 0-5 [facility] Neutrophils (Bld) [#/Vol] 5.1 10*3/uL 2.0-7.7 [facility] Neutrophils/100 WBC (Bld) 59.0 % 47-70 [facility] WBC (Bld) [#/Vol] 8.7 10*3/uL 4.4-11.0 [facility] Blood erythrocytes count (nu mber/volume)Ordered By: Renard Burgos on 04-10-2023 RBC (Bld) [#/Vol] 4.84 10*6/uL 4.6-6.2 [facility] Blood hemoglobin measurement (mass/volume)Ordered By: Renard Burgos on 04-10-2023 Hemoglobin (Bld) [Mass/Vol] 14.2 g/dL 13.0-16.5 [facility] Blood lymphocytes/100 leukoc ytesOrdered By: Renard Burgos on 04-10-2023 Lymphocytes/100 WBC (Bld) 29.4 % 19-41 [facility] Blood monocytes/100 leukocyt esOrdered By: Renard Burgos on 04-10-2023 Monocytes/100 WBC (Bld) 10.3 % 0-10 [facility] Blood platelet mean volumeOr dered By: Renard Burgos on 04-10-2023 Platelet mean volume (Bld) [Entitic vol] 11.1 fL 6.2-12.0 [facility] Determination of erythrocyte mean corpuscular volume (MCV)Ordered By: Renard Burgos on 04-10-2023 MCV (RBC) [Entitic vol] 91.5 fL 80-94 [facility] Hematocrit Auto (Bld) [Volum e fraction]Ordered By: Renard Burgos on 04-10-2023 Hematocrit (Bld) [Volume fraction] 44.3 % 40-54 [facility] - Hematology and Cell countsOrdered By: Renard Burgos on 04-10-2023 Erythrocyte distribution width (RBC) [Entitic vol] 41.9 fL 35.1-43.9 [facility] Erythrocyte distribution width (RBC) [Ratio] 12.6 % 11.6-14.6 [facility] Immature granulocytes/100 WBC (Bld) 0.300 % 0.0-0.9 [facility] Comment on above: IG% - Immature Granu locytes (promyelocytes, myelocytes and metamyelocytes) > 1% indicates that a LEFT SHIFT is Present. MCH (RBC) [Entitic mass] 29.3 pg 27.0-32.0 [facility] Nucleated RBC/100 WBC (Bld) [Ratio] 0 % 0-5 [facility] MCHC Auto (RBC) [Mass/Vol]Or dered By: Renard Burgos on 04-10-2023 MCHC (RBC) [Mass/Vol] 32.1 g/dL 32-36 [facility] Platelets bldOrdered By: Lyubov Burgos on 04-10-2023 Platelets (Bld) [#/Vol] 216 10*3/uL 150-450 [facility] Absolute lymphocyte countOrd ered By: Renard Burgos on 04-03-2023 Lymphocytes Auto (Unsp spec) [#/Vol] 1.91 10*3/uL 0.83-4.51 [facility] Basophil percentageOrdered B y: Renard Burgos on 04-03-2023 Basophils/100 WBC (Bld) 0.5 % 0-1 [facility] Eosinophils/100 WBC (Bld) 0.5 % 0-5 [facility] Neutrophils (Bld) [#/Vol] 5.0 10*3/uL 2.0-7.7 [facility] Neutrophils/100 WBC (Bld) 66.5 % 47-70 [facility] WBC (Bld) [#/Vol] 7.6 10*3/uL 4.4-11.0 [facility] Blood erythrocytes count (nu mber/volume)Ordered By: Renard Burgos on 04-03-2023 RBC (Bld) [#/Vol] 4.62 10*6/uL 4.6-6.2 [facility] Blood hemoglobin measurement (mass/volume)Ordered By: Renard Burgos on 04-03-2023 Hemoglobin (Bld) [Mass/Vol] 13.7 g/dL 13.0-16.5 [facility] Blood lymphocytes/100 leukoc ytesOrdered By: Renard Burgos on 04-03-2023 Lymphocytes/100 WBC (Bld) 25.2 % 19-41 [facility] Blood monocytes/100 leukocyt esOrdered By: Renard Burgos on 04-03-2023 Monocytes/100 WBC (Bld) 6.9 % 0-10 [facility] Blood platelet mean volumeOr dered By: Renard Burgos on 04-03-2023 Platelet mean volume (Bld) [Entitic vol] 10.8 fL 6.2-12.0 [facility] Determination of erythrocyte mean corpuscular volume (MCV)Ordered By: Renard Burgos on 04-03-2023 MCV (RBC) [Entitic vol] 91.6 fL 80-94 [facility] Hematocrit Auto (Bld) [Volum e fraction]Ordered By: Renard Burgos on 04-03-2023 Hematocrit (Bld) [Volume fraction] 42.3 % 40-54 [facility] - Hematology and Cell countsOrdered By: Renard Burgos on 04-03-2023 Erythrocyte distribution width (RBC) [Entitic vol] 42.6 fL 35.1-43.9 [facility] Erythrocyte distribution width (RBC) [Ratio] 12.8 % 11.6-14.6 [facility] Immature granulocytes/100 WBC (Bld) 0.400 % 0.0-0.9 [facility] Comment on above: IG% - Immature Granu locytes (promyelocytes, myelocytes and metamyelocytes) > 1% indicates that a LEFT SHIFT is Present. MCH (RBC) [Entitic mass] 29.7 pg 27.0-32.0 [facility] Nucleated RBC/100 WBC (Bld) [Ratio] 0 % 0-5 [facility] MCHC Auto (RBC) [Mass/Vol]Or dered By: Renard Burgos on 04-03-2023 MCHC (RBC) [Mass/Vol] 32.4 g/dL 32-36 [facility] Platelets bldOrdered By: Lyubov Burgos on 04-03-2023 Platelets (Bld) [#/Vol] 216 10*3/uL 150-450 [facility] Absolute lymphocyte countOrd ered By: Renard Burgos on 03-27-2023 Lymphocytes Auto (Unsp spec) [#/Vol] 2.06 10*3/uL 0.83-4.51 [facility] Basophil percentageOrdered B y: Renard Burgos on 03-27-2023 Basophils/100 WBC (Bld) 0.4 % 0-1 [facility] Eosinophils/100 WBC (Bld) 0.2 % 0-5 [facility] Neutrophils (Bld) [#/Vol] 6.3 10*3/uL 2.0-7.7 [facility] Neutrophils/100 WBC (Bld) 68.8 % 47-70 [facility] WBC (Bld) [#/Vol] 9.1 10*3/uL 4.4-11.0 [facility] Blood erythrocytes count (nu mber/volume)Ordered By: Renard Burgos on 03-27-2023 RBC (Bld) [#/Vol] 4.51 10*6/uL 4.6-6.2 [facility] Blood hemoglobin measurement (mass/volume)Ordered By: Renard Burgos on 03-27-2023 Hemoglobin (Bld) [Mass/Vol] 13.2 g/dL 13.0-16.5 [facility] Blood lymphocytes/100 leukoc ytesOrdered By: Renard Burgos on 03-27-2023 Lymphocytes/100 WBC (Bld) 22.6 % 19-41 [facility] Blood monocytes/100 leukocyt esOrdered By: Reanrd Burgos on 03-27-2023 Monocytes/100 WBC (Bld) 7.3 % 0-10 [facility] Blood platelet mean volumeOr dered By: Renard Burgos on 03-27-2023 Platelet mean volume (Bld) [Entitic vol] 10.8 fL 6.2-12.0 [facility] Determination of erythrocyte mean corpuscular volume (MCV)Ordered By: Renard Burgos on 03-27-2023 MCV (RBC) [Entitic vol] 91.6 fL 80-94 [facility] Hematocrit Auto (Bld) [Volum e fraction]Ordered By: Renard Burgos on 03-27-2023 Hematocrit (Bld) [Volume fraction] 41.3 % 40-54 [facility] - Hematology and Cell countsOrdered By: Renard Burgos on 03-27-2023 Erythrocyte distribution width (RBC) [Entitic vol] 42.9 fL 35.1-43.9 [facility] Erythrocyte distribution width (RBC) [Ratio] 12.9 % 11.6-14.6 [facility] Immature granulocytes/100 WBC (Bld) 0.700 % 0.0-0.9 [facility] Comment on above: IG% - Immature Granu locytes (promyelocytes, myelocytes and metamyelocytes) > 1% indicates that a LEFT SHIFT is Present. MCH (RBC) [Entitic mass] 29.3 pg 27.0-32.0 [facility] Nucleated RBC/100 WBC (Bld) [Ratio] 0 % 0-5 [facility] MCHC Auto (RBC) [Mass/Vol]Or dered By: Renard Burgos on 03-27-2023 MCHC (RBC) [Mass/Vol] 32.0 g/dL 32-36 [facility] Platelets bldOrdered By: Lyubov Burgos on 03-27-2023 Platelets (Bld) [#/Vol] 205 10*3/uL 150-450 [facility] Absolute lymphocyte countOrd ered By: Renard Burgos on 03-20-2023 Lymphocytes Auto (Unsp spec) [#/Vol] 1.89 10*3/uL 0.83-4.51 [facility] Basophil percentageOrdered B y: Renard Burgos on 03-20-2023 Basophils/100 WBC (Bld) 0.5 % 0-1 [facility] Chloride [Moles/Vol] 107 mmol/L 98-107 [facility] Eosinophils/100 WBC (Bld) 0.4 % 0-5 [facility] Glucose [Mass/Vol] 124 mg/dL 74-106 [facility] Comment on above: Fasting Glucose resu lt from 100 to 125 mg/dL suggests IMPAIRED HOMEOSTASIS per A.D.A. criteria. Neutrophils (Bld) [#/Vol] 4.8 10*3/uL 2.0-7.7 [facility] Neutrophils/100 WBC (Bld) 64.9 % 47-70 [facility] Potassium [Moles/Vol] 3.6 mmol/L 3.5-5.1 [facility] Sodium [Moles/Vol] 142 mmol/L 136-145 [facility] WBC (Bld) [#/Vol] 7.4 10*3/uL 4.4-11.0 [facility] Blood erythrocytes count (nu mber/volume)Ordered By: Renard Burgos on 03-20-2023 RBC (Bld) [#/Vol] 4.63 10*6/uL 4.6-6.2 [facility] Blood hemoglobin measurement (mass/volume)Ordered By: Renard Burgos on 03-20-2023 Hemoglobin (Bld) [Mass/Vol] 13.7 g/dL 13.0-16.5 [facility] Blood lymphocytes/100 leukoc ytesOrdered By: Renard Burgos on 03-20-2023 Lymphocytes/100 WBC (Bld) 25.7 % 19-41 [facility] Blood monocytes/100 leukocyt esOrdered By: Renard Burgos on 03-20-2023 Monocytes/100 WBC (Bld) 8.2 % 0-10 [facility] Blood platelet mean volumeOr dered By: Renard Burgos on 03-20-2023 Platelet mean volume (Bld) [Entitic vol] 10.7 fL 6.2-12.0 [facility] Determination of erythrocyte mean corpuscular volume (MCV)Ordered By: Renard Burgos on 03-20-2023 MCV (RBC) [Entitic vol] 90.9 fL 80-94 [facility] Hematocrit Auto (Bld) [Volum e fraction]Ordered By: Renard Burgos on 03-20-2023 Hematocrit (Bld) [Volume fraction] 42.1 % 40-54 [facility] - Chemistry and C hemistry - challengeOrdered By: Renard Burgos on 03-20-2023 CO2 [Moles/Vol] 29.0 mmol/L 21.0-32.0 [facility] Urea nitrogen/Creatinine [Mass ratio] 30.7 mg/mg 10-20 [facility] - Hematology and Cell countsOrdered By: Renard Burgos on 03-20-2023 Erythrocyte distribution width (RBC) [Entitic vol] 43.0 fL 35.1-43.9 [facility] Erythrocyte distribution width (RBC) [Ratio] 12.9 % 11.6-14.6 [facility] Immature granulocytes/100 WBC (Bld) 0.300 % 0.0-0.9 [facility] Comment on above: IG% - Immature Granu locytes (promyelocytes, myelocytes and metamyelocytes) > 1% indicates that a LEFT SHIFT is Present. MCH (RBC) [Entitic mass] 29.6 pg 27.0-32.0 [facility] Nucleated RBC/100 WBC (Bld) [Ratio] 0 % 0-5 [facility] MCHC Auto (RBC) [Mass/Vol]Or dered By: Renard Burgos on 03-20-2023 MCHC (RBC) [Mass/Vol] 32.5 g/dL 32-36 [facility] No Panel InformationOrdered By: Renard Burgos on 03-20-2023 Estimated GFR (MDRD) Amer 178 mL/min >60 [facility] Comment on above: GFR Calc Estimated GFR (MDRD) Non-Af Amer 147 mL/min >60 [facility] Comment on above: Non- GFR Calc Platelets bldOrdered By: Pet lizy Burgos on 03-20-2023 Platelets (Bld) [#/Vol] 208 10*3/uL 150-450 [facility] Serum or plasma calcium gordy urement (mass/volume)Ordered By: Renard Burgos on 03-20-2023 Calcium [Mass/Vol] 8.1 mg/dL 8.5-10.1 [facility] Serum or plasma creatinine m easurement (mass/volume)Ordered By: Renard Burgos on 03-20-2023 Creatinine [Mass/Vol] 0.59 mg/dL 0.70-1.30 [facility] Comment on above: The validity of the calculated GFR & GFRAA in patients over 70 years has not been determined. Clinical correlation is essential. Serum or plasma urea nitroge n measurement (mass/volume)Ordered By: Renard Burgos on 03-20-2023 Urea nitrogen [Mass/Vol] 18 mg/dL 7-18 [facility] Thin prep Papanicolaou smear with manual screeningOrdered By: Renard Burgos on 03-20-2023 Thin prep Papanicolaou smear with manual screening 6 5-15 [facility] Erythrocyte sedimentation ra teOrdered By: Renard Burgos on 03-16-2023 ESR (Bld) [Velocity] 3 mm/h 0-20 [facility] Absolute lymphocyte countOrd ered By: Renard Burgos on 03-13-2023 Lymphocytes Auto (Unsp spec) [#/Vol] 2.36 10*3/uL 0.83-4.51 [facility] Basophil percentageOrdered B y: Renard Burgos on 03-13-2023 Basophils/100 WBC (Bld) 0.5 % 0-1 [facility] Eosinophils/100 WBC (Bld) 0.5 % 0-5 [facility] Neutrophils (Bld) [#/Vol] 5.2 10*3/uL 2.0-7.7 [facility] Neutrophils/100 WBC (Bld) 61.3 % 47-70 [facility] WBC (Bld) [#/Vol] 8.5 10*3/uL 4.4-11.0 [facility] Blood erythrocytes count (nu mber/volume)Ordered By: Renard Burgos on 03-13-2023 RBC (Bld) [#/Vol] 4.55 10*6/uL 4.6-6.2 [facility] Blood hemoglobin measurement (mass/volume)Ordered By: Renard Burgos on 03-13-2023 Hemoglobin (Bld) [Mass/Vol] 13.4 g/dL 13.0-16.5 [facility] Blood lymphocytes/100 leukoc ytesOrdered By: Renard Burgos on 03-13-2023 Lymphocytes/100 WBC (Bld) 27.7 % 19-41 [facility] Blood monocytes/100 leukocyt esOrdered By: Renard Burgos on 03-13-2023 Monocytes/100 WBC (Bld) 9.5 % 0-10 [facility] Blood platelet mean volumeOr dered By: Renard Burgos on 03-13-2023 Platelet mean volume (Bld) [Entitic vol] 10.6 fL 6.2-12.0 [facility] Determination of erythrocyte mean corpuscular volume (MCV)Ordered By: Renard Burgos on 03-13-2023 MCV (RBC) [Entitic vol] 93.4 fL 80-94 [facility] Hematocrit Auto (Bld) [Volum e fraction]Ordered By: Renard Burgos on 03-13-2023 Hematocrit (Bld) [Volume fraction] 42.5 % 40-54 [facility] - Hematology and Cell countsOrdered By: Renard Burgos on 03-13-2023 Erythrocyte distribution width (RBC) [Entitic vol] 44.1 fL 35.1-43.9 [facility] Erythrocyte distribution width (RBC) [Ratio] 13.0 % 11.6-14.6 [facility] Immature granulocytes/100 WBC (Bld) 0.500 % 0.0-0.9 [facility] Comment on above: IG% - Immature Granu locytes (promyelocytes, myelocytes and metamyelocytes) > 1% indicates that a LEFT SHIFT is Present. MCH (RBC) [Entitic mass] 29.5 pg 27.0-32.0 [facility] Nucleated RBC/100 WBC (Bld) [Ratio] 0 % 0-5 [facility] MCHC Auto (RBC) [Mass/Vol]Or dered By: Renard Burgos on 03-13-2023 MCHC (RBC) [Mass/Vol] 31.5 g/dL 32-36 [facility] Platelets bldOrdered By: Lyubov Hensleyrustam on 03-13-2023 Platelets (Bld) [#/Vol] 200 10*3/uL 150-450 [facility] Absolute lymphocyte countOrd ered By: Renard Hensleyrustam on 03-06-2023 Lymphocytes Auto (Unsp spec) [#/Vol] 1.80 10*3/uL 0.83-4.51 [facility] Basophil percentageOrdered B y: Renard Loretta on 03-06-2023 Basophils/100 WBC (Bld) 0.5 % 0-1 [facility] Bilirubin [Mass/Vol] 0.40 mg/dL 0.20-1.00 [facility] Comment on above: For patients on eltr ombopag therapy, use of Dimension Jackson TBIL is not recommended. Chloride [Moles/Vol] 107 mmol/L 98-107 [facility] Cholesterol [Mass/Vol] 118 mg/dL <200 [facility] Comment on above: <200 mg/dL Desirable 200-240 mg/dL Borderline >240 mg/dL High Risk Eosinophils/100 WBC (Bld) 0.5 % 0-5 [facility] Glucose [Mass/Vol] 107 mg/dL 74-106 [facility] Comment on above: Fasting Glucose resu lt from 100 to 125 mg/dL suggests IMPAIRED HOMEOSTASIS per A.D.A. criteria. Neutrophils (Bld) [#/Vol] 5.5 10*3/uL 2.0-7.7 [facility] Neutrophils/100 WBC (Bld) 68.0 % 47-70 [facility] Potassium [Moles/Vol] 3.8 mmol/L 3.5-5.1 [facility] Protein [Mass/Vol] 6.3 g/dL 6.4-8.2 [facility] Sodium [Moles/Vol] 141 mmol/L 136-145 [facility] Triglyceride [Mass/Vol] 185 mg/dL <199 [facility] Comment on above: The drugs N-Acetylcy steine and Metamizole may falsely depress this assay.Serum Triglycerides Reference Interval Normal <150 mg/dL Borderline high 150 - 199 mg/dL High 200 - 499 mg/dL Very High > or = 500 mg/dL WBC (Bld) [#/Vol] 8.1 10*3/uL 4.4-11.0 [facility] Blood erythrocytes count (nu mber/volume)Ordered By: Renard Burgos on 03-06-2023 RBC (Bld) [#/Vol] 4.69 10*6/uL 4.6-6.2 [facility] Blood hemoglobin measurement (mass/volume)Ordered By: Renard Burgos on 03-06-2023 Hemoglobin (Bld) [Mass/Vol] 14.0 g/dL 13.0-16.5 [facility] Blood lymphocytes/100 leukoc ytesOrdered By: Renard Burgos on 03-06-2023 Lymphocytes/100 WBC (Bld) 22.3 % 19-41 [facility] Blood monocytes/100 leukocyt esOrdered By: Renard Burgos on 03-06-2023 Monocytes/100 WBC (Bld) 8.2 % 0-10 [facility] Blood platelet mean volumeOr dered By: Renard Burgos on 03-06-2023 Platelet mean volume (Bld) [Entitic vol] 10.9 fL 6.2-12.0 [facility] Determination of erythrocyte mean corpuscular volume (MCV)Ordered By: Renard Burgos on 03-06-2023 MCV (RBC) [Entitic vol] 91.9 fL 80-94 [facility] Hematocrit Auto (Bld) [Volum e fraction]Ordered By: Renard Burgos on 03-06-2023 Hematocrit (Bld) [Volume fraction] 43.1 % 40-54 [facility] - Chemistry and C hemistry - challengeOrdered By: Renard Burgos on 03-06-2023 ALP [Catalytic activity/Vol] 120 U/L 45-117 [facility] ALT [Catalytic activity/Vol] 20 U/L 16-61 [facility] CO2 [Moles/Vol] 30.0 mmol/L 21.0-32.0 [facility] Globulin (S) [Mass/Vol] 3.3 g/dL 2.2-4.2 [facility] Urea nitrogen/Creatinine [Mass ratio] 27.1 mg/mg 10-20 [facility] - Hematology and Cell countsOrdered By: Renard Burgos on 03-06-2023 Erythrocyte distribution width (RBC) [Entitic vol] 42.5 fL 35.1-43.9 [facility] Erythrocyte distribution width (RBC) [Ratio] 12.9 % 11.6-14.6 [facility] Immature granulocytes/100 WBC (Bld) 0.500 % 0.0-0.9 [facility] Comment on above: IG% - Immature Granu locytes (promyelocytes, myelocytes and metamyelocytes) > 1% indicates that a LEFT SHIFT is Present. MCH (RBC) [Entitic mass] 29.9 pg 27.0-32.0 [facility] Nucleated RBC/100 WBC (Bld) [Ratio] 0 % 0-5 [facility] MCHC Auto (RBC) [Mass/Vol]Or dered By: Renard Burgos on 03-06-2023 MCHC (RBC) [Mass/Vol] 32.5 g/dL 32-36 [facility] No Panel InformationOrdered By: Renard Burgos on 03-06-2023 Estimated GFR (MDRD) Amer 165 mL/min >60 [facility] Comment on above: GFR Calc Estimated GFR (MDRD) Non-Af Amer 136 mL/min >60 [facility] Comment on above: Non- GFR Calc Platelets bldOrdered By: Lyubov Burgos on 03-06-2023 Platelets (Bld) [#/Vol] 232 10*3/uL 150-450 [facility] Serum or plasma albumin gordy urement (mass/volume)Ordered By: Renard Burgos on 03-06-2023 Albumin [Mass/Vol] 3.0 g/dL 3.2-5.0 [facility] Serum or plasma albumin/glob ulin mass ratioOrdered By: Renard Burgos on 03-06-2023 Albumin/Globulin [Mass ratio] 0.9 {ratio} 0.9-2.4 [facility] Serum or plasma calcium gordy urement (mass/volume)Ordered By: Renard Burgos on 03-06-2023 Calcium [Mass/Vol] 8.2 mg/dL 8.5-10.1 [facility] Serum or plasma cholesterol in HDL measurement (mass/volume)Ordered By: Renard Burgos on 03-06-2023 Cholesterol in HDL [Mass/Vol] 25 mg/dL >40 [facility] Comment on above: The drugs N-Acetylcy steine and Metamizole may falsely depress this assay. Reference Range HDL <40 mg/dL Low HDL Cholesterol HDL >or= 60 mg/dL High HDL Cholesterol Serum or plasma cholesterol in VLDL measurement (mass/volume)Ordered By: Renard Burgos on 03-06-2023 Cholesterol in VLDL [Mass/Vol] 37 mg/dL 5-40 [facility] Serum or plasma creatinine m easurement (mass/volume)Ordered By: Renard Burgos on 03-06-2023 Creatinine [Mass/Vol] 0.63 mg/dL 0.70-1.30 [facility] Comment on above: The validity of the calculated GFR & GFRAA in patients over 70 years has not been determined. Clinical correlation is essential. Serum or plasma low density lipoprotein (LDL) cholesterol measurement (mass/volume)Ordered By: Renard Burgos on 03-06-2023 Cholesterol in LDL [Mass/Vol] 56 mg/dL 0-130 [facility] Serum or plasma urea nitroge n measurement (mass/volume)Ordered By: Renard Burgos on 03-06-2023 Urea nitrogen [Mass/Vol] 17 mg/dL 7-18 [facility] Thin prep Papanicolaou smear with manual screeningOrdered By: Renard Burgos on 03-06-2023 Thin prep Papanicolaou smear with manual screening 10 U/L 15-37 [facility] Thin prep Papanicolaou smear with manual screening 4 5-15 [facility] Absolute lymphocyte countOrd ered By: Renard Burgos on 02-27-2023 Lymphocytes Auto (Unsp spec) [#/Vol] 2.13 10*3/uL 0.83-4.51 [facility] Basophil percentageOrdered B y: Renard Burgos on 02-27-2023 Basophils/100 WBC (Bld) 0.6 % 0-1 [facility] Eosinophils/100 WBC (Bld) 0.6 % 0-5 [facility] Neutrophils (Bld) [#/Vol] 5.1 10*3/uL 2.0-7.7 [facility] Neutrophils/100 WBC (Bld) 63.3 % 47-70 [facility] WBC (Bld) [#/Vol] 8.1 10*3/uL 4.4-11.0 [facility] Blood erythrocytes count (nu mber/volume)Ordered By: Renard Burgos on 02-27-2023 RBC (Bld) [#/Vol] 4.54 10*6/uL 4.6-6.2 [facility] Blood hemoglobin measurement (mass/volume)Ordered By: Renard Burgos on 02-27-2023 Hemoglobin (Bld) [Mass/Vol] 13.7 g/dL 13.0-16.5 [facility] Blood lymphocytes/100 leukoc ytesOrdered By: Renard Burgos on 02-27-2023 Lymphocytes/100 WBC (Bld) 26.4 % 19-41 [facility] Blood monocytes/100 leukocyt esOrdered By: Renard Burgos on 02-27-2023 Monocytes/100 WBC (Bld) 8.7 % 0-10 [facility] Blood platelet mean volumeOr dered By: Renard Burgos on 02-27-2023 Platelet mean volume (Bld) [Entitic vol] 10.8 fL 6.2-12.0 [facility] Determination of erythrocyte mean corpuscular volume (MCV)Ordered By: Renard Burgos on 02-27-2023 MCV (RBC) [Entitic vol] 89.9 fL 80-94 [facility] Hematocrit Auto (Bld) [Volum e fraction]Ordered By: Renard Burgos on 02-27-2023 Hematocrit (Bld) [Volume fraction] 40.8 % 40-54 [facility] - Hematology and Cell countsOrdered By: Renard Burgos on 02-27-2023 Erythrocyte distribution width (RBC) [Entitic vol] 41.0 fL 35.1-43.9 [facility] Erythrocyte distribution width (RBC) [Ratio] 12.5 % 11.6-14.6 [facility] Immature granulocytes/100 WBC (Bld) 0.400 % 0.0-0.9 [facility] Comment on above: IG% - Immature Granu locytes (promyelocytes, myelocytes and metamyelocytes) > 1% indicates that a LEFT SHIFT is Present. MCH (RBC) [Entitic mass] 30.2 pg 27.0-32.0 [facility] Nucleated RBC/100 WBC (Bld) [Ratio] 0 % 0-5 [facility] MCHC Auto (RBC) [Mass/Vol]Or dered By: Renard Burgos on 02-27-2023 MCHC (RBC) [Mass/Vol] 33.6 g/dL 32-36 [facility] Platelets bldOrdered By: Lyubov Burgos on 02-27-2023 Platelets (Bld) [#/Vol] 182 10*3/uL 150-450 [facility] Absolute lymphocyte countOrd ered By: Renard Burgos on 02-20-2023 Lymphocytes Auto (Unsp spec) [#/Vol] 2.23 10*3/uL 0.83-4.51 [facility] Basophil percentageOrdered B y: Renard Burgos on 02-20-2023 Basophils/100 WBC (Bld) 0.3 % 0-1 [facility] Eosinophils/100 WBC (Bld) 0.7 % 0-5 [facility] Neutrophils (Bld) [#/Vol] 5.9 10*3/uL 2.0-7.7 [facility] Neutrophils/100 WBC (Bld) 65.7 % 47-70 [facility] WBC (Bld) [#/Vol] 9.0 10*3/uL 4.4-11.0 [facility] Blood erythrocytes count (nu mber/volume)Ordered By: Renard Burgos on 02-20-2023 RBC (Bld) [#/Vol] 4.46 10*6/uL 4.6-6.2 [facility] Blood hemoglobin measurement (mass/volume)Ordered By: Renard Burgos on 02-20-2023 Hemoglobin (Bld) [Mass/Vol] 13.3 g/dL 13.0-16.5 [facility] Blood lymphocytes/100 leukoc ytesOrdered By: Renard Burgos on 02-20-2023 Lymphocytes/100 WBC (Bld) 24.7 % 19-41 [facility] Blood monocytes/100 leukocyt esOrdered By: Renard Burgos on 02-20-2023 Monocytes/100 WBC (Bld) 8.0 % 0-10 [facility] Blood platelet mean volumeOr dered By: Renard Burgos on 02-20-2023 Platelet mean volume (Bld) [Entitic vol] 10.7 fL 6.2-12.0 [facility] Determination of erythrocyte mean corpuscular volume (MCV)Ordered By: Renard Burgos on 02-20-2023 MCV (RBC) [Entitic vol] 90.6 fL 80-94 [facility] Hematocrit Auto (Bld) [Volum e fraction]Ordered By: Renard Burgos on 02-20-2023 Hematocrit (Bld) [Volume fraction] 40.4 % 40-54 [facility] - Hematology and Cell countsOrdered By: Renard Burgos on 02-20-2023 Erythrocyte distribution width (RBC) [Entitic vol] 41.9 fL 35.1-43.9 [facility] Erythrocyte distribution width (RBC) [Ratio] 12.8 % 11.6-14.6 [facility] Immature granulocytes/100 WBC (Bld) 0.600 % 0.0-0.9 [facility] Comment on above: IG% - Immature Granu locytes (promyelocytes, myelocytes and metamyelocytes) > 1% indicates that a LEFT SHIFT is Present. MCH (RBC) [Entitic mass] 29.8 pg 27.0-32.0 [facility] Nucleated RBC/100 WBC (Bld) [Ratio] 0 % 0-5 [facility] MCHC Auto (RBC) [Mass/Vol]Or dered By: Renard Burgos on 02-20-2023 MCHC (RBC) [Mass/Vol] 32.9 g/dL 32-36 [facility] Platelets bldOrdered By: Lyubov Burgos on 02-20-2023 Platelets (Bld) [#/Vol] 220 10*3/uL 150-450 [facility] Absolute lymphocyte countOrd ered By: Renard Burgos on 02-13-2023 Lymphocytes Auto (Unsp spec) [#/Vol] 2.01 10*3/uL 0.83-4.51 [facility] Basophil percentageOrdered B y: Renard Burgos on 02-13-2023 Basophils/100 WBC (Bld) 0.7 % 0-1 [facility] Eosinophils/100 WBC (Bld) 0.5 % 0-5 [facility] Neutrophils (Bld) [#/Vol] 4.7 10*3/uL 2.0-7.7 [facility] Neutrophils/100 WBC (Bld) 63.3 % 47-70 [facility] WBC (Bld) [#/Vol] 7.4 10*3/uL 4.4-11.0 [facility] Blood erythrocytes count (nu mber/volume)Ordered By: Renard Burgos on 02-13-2023 RBC (Bld) [#/Vol] 4.46 10*6/uL 4.6-6.2 [facility] Blood hemoglobin measurement (mass/volume)Ordered By: Renard Burgos on 02-13-2023 Hemoglobin (Bld) [Mass/Vol] 13.6 g/dL 13.0-16.5 [facility] Blood lymphocytes/100 leukoc ytesOrdered By: Renard Burgos on 02-13-2023 Lymphocytes/100 WBC (Bld) 27.0 % 19-41 [facility] Blood monocytes/100 leukocyt esOrdered By: Renard Burgos on 02-13-2023 Monocytes/100 WBC (Bld) 8.1 % 0-10 [facility] Blood platelet mean volumeOr dered By: Renard Burgos on 02-13-2023 Platelet mean volume (Bld) [Entitic vol] 10.7 fL 6.2-12.0 [facility] Determination of erythrocyte mean corpuscular volume (MCV)Ordered By: Renard Burgos on 02-13-2023 MCV (RBC) [Entitic vol] 92.6 fL 80-94 [facility] Hematocrit Auto (Bld) [Volum e fraction]Ordered By: Renard Burgos on 02-13-2023 Hematocrit (Bld) [Volume fraction] 41.3 % 40-54 [facility] - Hematology and Cell countsOrdered By: Renard Burgos on 02-13-2023 Erythrocyte distribution width (RBC) [Entitic vol] 42.7 fL 35.1-43.9 [facility] Erythrocyte distribution width (RBC) [Ratio] 12.6 % 11.6-14.6 [facility] Immature granulocytes/100 WBC (Bld) 0.400 % 0.0-0.9 [facility] Comment on above: IG% - Immature Granu locytes (promyelocytes, myelocytes and metamyelocytes) > 1% indicates that a LEFT SHIFT is Present. MCH (RBC) [Entitic mass] 30.5 pg 27.0-32.0 [facility] Nucleated RBC/100 WBC (Bld) [Ratio] 0 % 0-5 [facility] MCHC Auto (RBC) [Mass/Vol]Or dered By: Renard Burgos on 02-13-2023 MCHC (RBC) [Mass/Vol] 32.9 g/dL 32-36 [facility] Platelets bldOrdered By: Lyubov Burgos on 02-13-2023 Platelets (Bld) [#/Vol] 187 10*3/uL 150-450 [facility] Absolute lymphocyte countOrd ered By: Renard Burgos on 02-06-2023 Lymphocytes Auto (Unsp spec) [#/Vol] 2.28 10*3/uL 0.83-4.51 [facility] Basophil percentageOrdered B y: Renard Burgos on 02-06-2023 Basophils/100 WBC (Bld) 0.5 % 0-1 [facility] Eosinophils/100 WBC (Bld) 0.7 % 0-5 [facility] Neutrophils (Bld) [#/Vol] 5.5 10*3/uL 2.0-7.7 [facility] Neutrophils/100 WBC (Bld) 63.7 % 47-70 [facility] WBC (Bld) [#/Vol] 8.6 10*3/uL 4.4-11.0 [facility] Blood erythrocytes count (nu mber/volume)Ordered By: Renard Burgos on 02-06-2023 RBC (Bld) [#/Vol] 4.71 10*6/uL 4.6-6.2 [facility] Blood hemoglobin measurement (mass/volume)Ordered By: Renard Burgos on 02-06-2023 Hemoglobin (Bld) [Mass/Vol] 14.1 g/dL 13.0-16.5 [facility] Blood lymphocytes/100 leukoc ytesOrdered By: Renard Burgos on 02-06-2023 Lymphocytes/100 WBC (Bld) 26.4 % 19-41 [facility] Blood monocytes/100 leukocyt esOrdered By: Renard Burgos on 02-06-2023 Monocytes/100 WBC (Bld) 8.2 % 0-10 [facility] Blood platelet mean volumeOr dered By: Renard Burgos on 02-06-2023 Platelet mean volume (Bld) [Entitic vol] 11.0 fL 6.2-12.0 [facility] Determination of erythrocyte mean corpuscular volume (MCV)Ordered By: Renard Burgos on 02-06-2023 MCV (RBC) [Entitic vol] 94.5 fL 80-94 [facility] Hematocrit Auto (Bld) [Volum e fraction]Ordered By: Renard Burgos on 02-06-2023 Hematocrit (Bld) [Volume fraction] 44.5 % 40-54 [facility] - Hematology and Cell countsOrdered By: Renard Burgos on 02-06-2023 Erythrocyte distribution width (RBC) [Entitic vol] 43.5 fL 35.1-43.9 [facility] Erythrocyte distribution width (RBC) [Ratio] 12.7 % 11.6-14.6 [facility] Immature granulocytes/100 WBC (Bld) 0.500 % 0.0-0.9 [facility] Comment on above: IG% - Immature Granu locytes (promyelocytes, myelocytes and metamyelocytes) > 1% indicates that a LEFT SHIFT is Present. MCH (RBC) [Entitic mass] 29.9 pg 27.0-32.0 [facility] Nucleated RBC/100 WBC (Bld) [Ratio] 0 % 0-5 [facility] MCHC Auto (RBC) [Mass/Vol]Or dered By: Renard Burgos on 02-06-2023 MCHC (RBC) [Mass/Vol] 31.7 g/dL 32-36 [facility] Platelets bldOrdered By: Lyubov Burgos on 02-06-2023 Platelets (Bld) [#/Vol] 196 10*3/uL 150-450 [facility] Absolute lymphocyte countOrd ered By: Renard Burgos on 01-30-2023 Lymphocytes Auto (Unsp spec) [#/Vol] 1.91 10*3/uL 0.83-4.51 [facility] Basophil percentageOrdered B y: Renard Burgos on 01-30-2023 Basophils/100 WBC (Bld) 0.5 % 0-1 [facility] Eosinophils/100 WBC (Bld) 0.5 % 0-5 [facility] Neutrophils (Bld) [#/Vol] 6.0 10*3/uL 2.0-7.7 [facility] Neutrophils/100 WBC (Bld) 69.4 % 47-70 [facility] WBC (Bld) [#/Vol] 8.7 10*3/uL 4.4-11.0 [facility] Basophil percentage 0 SEEN /hpf 0-5 [facility] Bilirubin Test strip Ql (U)O rdered By: Renard Burgos on 01-30-2023 Bilirubin Ql (U) Negative Negative [facility] Blood erythrocytes count (nu mber/volume)Ordered By: Renard Burgos on 01-30-2023 RBC (Bld) [#/Vol] 4.50 10*6/uL 4.6-6.2 [facility] Blood hemoglobin measurement (mass/volume)Ordered By: Renard Burgos on 01-30-2023 Hemoglobin (Bld) [Mass/Vol] 13.5 g/dL 13.0-16.5 [facility] Blood lymphocytes/100 leukoc ytesOrdered By: Renard Burgos on 01-30-2023 Lymphocytes/100 WBC (Bld) 22.1 % 19-41 [facility] Blood monocytes/100 leukocyt esOrdered By: Renard Burgos on 01-30-2023 Monocytes/100 WBC (Bld) 7.2 % 0-10 [facility] Blood platelet mean volumeOr dered By: Renard Burgos on 01-30-2023 Platelet mean volume (Bld) [Entitic vol] 11.1 fL 6.2-12.0 [facility] Culture, urineOrdered By: Garrick Bhatt on 01-30-2023 Bacteria identified Cx Nom (U) Positive [facility] Determination of erythrocyte mean corpuscular volume (MCV)Ordered By: Renard Burgos on 01-30-2023 MCV (RBC) [Entitic vol] 91.3 fL 80-94 [facility] Hematocrit Auto (Bld) [Volum e fraction]Ordered By: Renard Burgos on 01-30-2023 Hematocrit (Bld) [Volume fraction] 41.1 % 40-54 [facility] Ketones Test strip Ql (U)Ord ered By: Renard Burgos on 01-30-2023 Ketones Ql (U) Negative Negative [facility] - Hematology and Cell countsOrdered By: Renard Burgos on 01-30-2023 Erythrocyte distribution width (RBC) [Entitic vol] 41.4 fL 35.1-43.9 [facility] Erythrocyte distribution width (RBC) [Ratio] 12.6 % 11.6-14.6 [facility] Immature granulocytes/100 WBC (Bld) 0.300 % 0.0-0.9 [facility] Comment on above: IG% - Immature Granu locytes (promyelocytes, myelocytes and metamyelocytes) > 1% indicates that a LEFT SHIFT is Present. MCH (RBC) [Entitic mass] 30.0 pg 27.0-32.0 [facility] Nucleated RBC/100 WBC (Bld) [Ratio] 0 % 0-5 [facility] MCHC Auto (RBC) [Mass/Vol]Or dered By: Renard Burgos on 01-30-2023 MCHC (RBC) [Mass/Vol] 32.8 g/dL 32-36 [facility] Mucus LM Ql (Urine sed)Order ed By: Renard Burgos on 01-30-2023 Mucus Ql (Urine sed) 0 SEEN /hpf [facility] Nitrite Test strip Ql (U)Ord ered By: Renard Burgos on 01-30-2023 Nitrite Ql (U) Negative Negative [facility] No Panel InformationOrdered By: Renard Burgos on 01-30-2023 Prostate Specific Antigen Screen 4.18 ng/mL 0.00-4.00 [facility] Comment on above: This test was perfor med using the TPSA assay method for theDimension chemistry system. Values obtained with differentassay methods cannot be used interchangably.When changing PSA assays in the course of monitoring apatient, additional sequential testing should be carriedout to confirm baseline values. Platelets bldOrdered By: Lyubov Burgos on 01-30-2023 Platelets (Bld) [#/Vol] 205 10*3/uL 150-450 [facility] Protein Test strip Ql (U)Ord ered By: Renard Burgos on 01-30-2023 Protein Ql (U) Negative Negative [facility] Squamous epithelial cells de tection in urine sediment by light microscopyOrdered By: Renard Burgos on 01-30-2023 Epithelial cells.squamous LM Ql (Urine sed) 0-5 SEEN /hpf 0-5 [facility] Urine blood detectionOrdered By: Renard Burgos on 01-30-2023 RBC Ql (U) Negative Negative [facility] RBC Ql (U) 0 SEEN /hpf 0-5 [facility] Urine clarityOrdered By: Lyubov Burgos on 01-30-2023 Clarity (U) Clear Clear [facility] Urine color determinationOrd ered By: Renard Burgos on 01-30-2023 Color (U) Yellow Yellow [facility] Urine glucose detectionOrder ed By: Renard Burgos on 01-30-2023 Glucose Ql (U) Normal mg/dl Normal [facility] Urine leukocyte esterase det ection by dipstickOrdered By: Renard Burgos on 01-30-2023 Leukocyte esterase Test strip Ql (U) Negative Negative [facility] Urine pHOrdered By: Renard ocampo on 01-30-2023 pH (U) 8.0 [pH] 5.0 - 8.0 [facility] Urine sediment bacteria coun t by microscopy (number/high power field)Ordered By: Renard Burgos on 01-30-2023 Bacteria LM.HPF (Urine sed) [#/Area] 0 /[HPF] None Seen [facility] Urine specific gravity measu rementOrdered By: Renard Burgos on 01-30-2023 Specific gravity (U) [Rel density] 1.010 1.002-1.030 [facility] Urobilinogen Auto test strip Ql (U)Ordered By: Renard Burgos on 01-30-2023 Urobilinogen Ql (U) Normal mg/dl Normal [facility] Absolute lymphocyte countOrd ered By: Renard Burgos on 01-23-2023 Lymphocytes Auto (Unsp spec) [#/Vol] 2.32 10*3/uL 0.83-4.51 [facility] Basophil percentageOrdered B y: Renard Burgos on 01-23-2023 Basophils/100 WBC (Bld) 0.6 % 0-1 [facility] Eosinophils/100 WBC (Bld) 0.4 % 0-5 [facility] Neutrophils (Bld) [#/Vol] 5.3 10*3/uL 2.0-7.7 [facility] Neutrophils/100 WBC (Bld) 62.7 % 47-70 [facility] WBC (Bld) [#/Vol] 8.4 10*3/uL 4.4-11.0 [facility] Blood erythrocytes count (nu mber/volume)Ordered By: Renard Burgos on 01-23-2023 RBC (Bld) [#/Vol] 4.49 10*6/uL 4.6-6.2 [facility] Blood hemoglobin measurement (mass/volume)Ordered By: Renard Burgos on 01-23-2023 Hemoglobin (Bld) [Mass/Vol] 13.6 g/dL 13.0-16.5 [facility] Blood lymphocytes/100 leukoc ytesOrdered By: Renard Burgos on 01-23-2023 Lymphocytes/100 WBC (Bld) 27.5 % 19-41 [facility] Blood monocytes/100 leukocyt esOrdered By: Renard Burgos on 01-23-2023 Monocytes/100 WBC (Bld) 8.2 % 0-10 [facility] Blood platelet mean volumeOr dered By: Renard Burgos on 01-23-2023 Platelet mean volume (Bld) [Entitic vol] 10.9 fL 6.2-12.0 [facility] Determination of erythrocyte mean corpuscular volume (MCV)Ordered By: Renard Burgos on 01-23-2023 MCV (RBC) [Entitic vol] 93.1 fL 80-94 [facility] Hematocrit Auto (Bld) [Volum e fraction]Ordered By: Renard Burgos on 01-23-2023 Hematocrit (Bld) [Volume fraction] 41.8 % 40-54 [facility] - Hematology and Cell countsOrdered By: Renard Burgos on 01-23-2023 Erythrocyte distribution width (RBC) [Entitic vol] 42.7 fL 35.1-43.9 [facility] Erythrocyte distribution width (RBC) [Ratio] 12.6 % 11.6-14.6 [facility] Immature granulocytes/100 WBC (Bld) 0.600 % 0.0-0.9 [facility] Comment on above: IG% - Immature Granu locytes (promyelocytes, myelocytes and metamyelocytes) > 1% indicates that a LEFT SHIFT is Present. MCH (RBC) [Entitic mass] 30.3 pg 27.0-32.0 [facility] Nucleated RBC/100 WBC (Bld) [Ratio] 0 % 0-5 [facility] MCHC Auto (RBC) [Mass/Vol]Or dered By: Renard Burgos on 01-23-2023 MCHC (RBC) [Mass/Vol] 32.5 g/dL 32-36 [facility] Platelets bldOrdered By: Lyubov Burgos on 01-23-2023 Platelets (Bld) [#/Vol] 220 10*3/uL 150-450 [facility] Absolute lymphocyte countOrd ered By: Renard Burgos on 01-16-2023 Lymphocytes Auto (Unsp spec) [#/Vol] 1.80 10*3/uL 0.83-4.51 [facility] Basophil percentageOrdered B y: Renard Burgos on 01-16-2023 Basophils/100 WBC (Bld) 0.4 % 0-1 [facility] Eosinophils/100 WBC (Bld) 0.4 % 0-5 [facility] Neutrophils (Bld) [#/Vol] 7.2 10*3/uL 2.0-7.7 [facility] Neutrophils/100 WBC (Bld) 73.5 % 47-70 [facility] WBC (Bld) [#/Vol] 9.8 10*3/uL 4.4-11.0 [facility] Blood erythrocytes count (nu mber/volume)Ordered By: Renard Burgos on 01-16-2023 RBC (Bld) [#/Vol] 4.77 10*6/uL 4.6-6.2 [facility] Blood hemoglobin measurement (mass/volume)Ordered By: Renard Burgos on 01-16-2023 Hemoglobin (Bld) [Mass/Vol] 14.1 g/dL 13.0-16.5 [facility] Blood lymphocytes/100 leukoc ytesOrdered By: Renard Burgos on 01-16-2023 Lymphocytes/100 WBC (Bld) 18.4 % 19-41 [facility] Blood monocytes/100 leukocyt esOrdered By: Renard Burgos on 01-16-2023 Monocytes/100 WBC (Bld) 6.9 % 0-10 [facility] Blood platelet mean volumeOr dered By: Renard Burgos on 01-16-2023 Platelet mean volume (Bld) [Entitic vol] 10.6 fL 6.2-12.0 [facility] Determination of erythrocyte mean corpuscular volume (MCV)Ordered By: Renard Burgos on 01-16-2023 MCV (RBC) [Entitic vol] 92.5 fL 80-94 [facility] Hematocrit Auto (Bld) [Volum e fraction]Ordered By: Renard Burgos on 01-16-2023 Hematocrit (Bld) [Volume fraction] 44.1 % 40-54 [facility] - Hematology and Cell countsOrdered By: Renard Burgos on 01-16-2023 Erythrocyte distribution width (RBC) [Entitic vol] 41.8 fL 35.1-43.9 [facility] Erythrocyte distribution width (RBC) [Ratio] 12.4 % 11.6-14.6 [facility] Immature granulocytes/100 WBC (Bld) 0.400 % 0.0-0.9 [facility] Comment on above: IG% - Immature Granu locytes (promyelocytes, myelocytes and metamyelocytes) > 1% indicates that a LEFT SHIFT is Present. MCH (RBC) [Entitic mass] 29.6 pg 27.0-32.0 [facility] Nucleated RBC/100 WBC (Bld) [Ratio] 0 % 0-5 [facility] MCHC Auto (RBC) [Mass/Vol]Or dered By: Renard Burgos on 01-16-2023 MCHC (RBC) [Mass/Vol] 32.0 g/dL 32-36 [facility] Platelets bldOrdered By: Lyubov Burgos on 01-16-2023 Platelets (Bld) [#/Vol] 221 10*3/uL 150-450 [facility] Absolute lymphocyte countOrd ered By: Renard Burgos on 01-09-2023 Lymphocytes Auto (Unsp spec) [#/Vol] 2.41 10*3/uL 0.83-4.51 [facility] Basophil percentageOrdered B y: Renard Burgos on 01-09-2023 Basophils/100 WBC (Bld) 0.7 % 0-1 [facility] Eosinophils/100 WBC (Bld) 0.8 % 0-5 [facility] Neutrophils (Bld) [#/Vol] 5.4 10*3/uL 2.0-7.7 [facility] Neutrophils/100 WBC (Bld) 60.5 % 47-70 [facility] WBC (Bld) [#/Vol] 8.9 10*3/uL 4.4-11.0 [facility] Blood erythrocytes count (nu mber/volume)Ordered By: Renard Burgos on 01-09-2023 RBC (Bld) [#/Vol] 4.56 10*6/uL 4.6-6.2 [facility] Blood hemoglobin measurement (mass/volume)Ordered By: Renard Burgos on 01-09-2023 Hemoglobin (Bld) [Mass/Vol] 13.8 g/dL 13.0-16.5 [facility] Blood lymphocytes/100 leukoc ytesOrdered By: Renard Burgos on 01-09-2023 Lymphocytes/100 WBC (Bld) 27.0 % 19-41 [facility] Blood monocytes/100 leukocyt esOrdered By: Renard Burgos on 01-09-2023 Monocytes/100 WBC (Bld) 10.7 % 0-10 [facility] Blood platelet mean volumeOr dered By: Renard Burgos on 01-09-2023 Platelet mean volume (Bld) [Entitic vol] 10.8 fL 6.2-12.0 [facility] Determination of erythrocyte mean corpuscular volume (MCV)Ordered By: Renard Burgos on 01-09-2023 MCV (RBC) [Entitic vol] 92.5 fL 80-94 [facility] Hematocrit Auto (Bld) [Volum e fraction]Ordered By: Renard Burgos on 01-09-2023 Hematocrit (Bld) [Volume fraction] 42.2 % 40-54 [facility] - Hematology and Cell countsOrdered By: Renard Burgos on 01-09-2023 Erythrocyte distribution width (RBC) [Entitic vol] 42.7 fL 35.1-43.9 [facility] Erythrocyte distribution width (RBC) [Ratio] 12.5 % 11.6-14.6 [facility] Immature granulocytes/100 WBC (Bld) 0.300 % 0.0-0.9 [facility] Comment on above: IG% - Immature Granu locytes (promyelocytes, myelocytes and metamyelocytes) > 1% indicates that a LEFT SHIFT is Present. MCH (RBC) [Entitic mass] 30.3 pg 27.0-32.0 [facility] Nucleated RBC/100 WBC (Bld) [Ratio] 0 % 0-5 [facility] MCHC Auto (RBC) [Mass/Vol]Or dered By: Renard Burgos on 01-09-2023 MCHC (RBC) [Mass/Vol] 32.7 g/dL 32-36 [facility] Platelets bldOrdered By: Lyubov Burgos on 01-09-2023 Platelets (Bld) [#/Vol] 209 10*3/uL 150-450 [facility] Absolute lymphocyte countOrd ered By: Renard Burgos on 01-03-2023 Lymphocytes Auto (Unsp spec) [#/Vol] 2.18 10*3/uL 0.83-4.51 [facility] Basophil percentageOrdered B y: Renard Burgos on 01-03-2023 Basophils/100 WBC (Bld) 0.6 % 0-1 [facility] Eosinophils/100 WBC (Bld) 0.5 % 0-5 [facility] Neutrophils (Bld) [#/Vol] 5.4 10*3/uL 2.0-7.7 [facility] Neutrophils/100 WBC (Bld) 64.2 % 47-70 [facility] WBC (Bld) [#/Vol] 8.4 10*3/uL 4.4-11.0 [facility] Blood erythrocytes count (nu mber/volume)Ordered By: Renard Burgos on 01-03-2023 RBC (Bld) [#/Vol] 4.59 10*6/uL 4.6-6.2 [facility] Blood hemoglobin measurement (mass/volume)Ordered By: Renard Burgos on 01-03-2023 Hemoglobin (Bld) [Mass/Vol] 13.9 g/dL 13.0-16.5 [facility] Blood lymphocytes/100 leukoc ytesOrdered By: Renard Burgos on 01-03-2023 Lymphocytes/100 WBC (Bld) 25.9 % 19-41 [facility] Blood monocytes/100 leukocyt esOrdered By: Renard Burgos on 01-03-2023 Monocytes/100 WBC (Bld) 8.3 % 0-10 [facility] Blood platelet mean volumeOr dered By: Renard Burgos on 01-03-2023 Platelet mean volume (Bld) [Entitic vol] 11.0 fL 6.2-12.0 [facility] Determination of erythrocyte mean corpuscular volume (MCV)Ordered By: Renard Burgos on 01-03-2023 MCV (RBC) [Entitic vol] 92.8 fL 80-94 [facility] Hematocrit Auto (Bld) [Volum e fraction]Ordered By: Renard Burgos on 01-03-2023 Hematocrit (Bld) [Volume fraction] 42.6 % 40-54 [facility] - Hematology and Cell countsOrdered By: Renard Burgos on 01-03-2023 Erythrocyte distribution width (RBC) [Entitic vol] 42.5 fL 35.1-43.9 [facility] Erythrocyte distribution width (RBC) [Ratio] 12.6 % 11.6-14.6 [facility] Immature granulocytes/100 WBC (Bld) 0.500 % 0.0-0.9 [facility] Comment on above: IG% - Immature Granu locytes (promyelocytes, myelocytes and metamyelocytes) > 1% indicates that a LEFT SHIFT is Present. MCH (RBC) [Entitic mass] 30.3 pg 27.0-32.0 [facility] Nucleated RBC/100 WBC (Bld) [Ratio] 0 % 0-5 [facility] MCHC Auto (RBC) [Mass/Vol]Or dered By: Renard Burgos on 01-03-2023 MCHC (RBC) [Mass/Vol] 32.6 g/dL 32-36 [facility] No Panel InformationOrdered By: Renard Burgos on 01-03-2023 Prostate Specific Antigen Screen 3.37 ng/mL 0.00-4.00 [facility] Comment on above: This test was perfor med using the TPSA assay method for the[employer] chemistry system. Values obtained with differentassay methods cannot be used interchangably.When changing PSA assays in the course of monitoring apatient, additional sequential testing should be carriedout to confirm baseline values. Platelets bldOrdered By: Lyubov Burgos on 01-03-2023 Platelets (Bld) [#/Vol] 200 10*3/uL 150-450 [facility] Absolute lymphocyte countOrd ered By: Renard Burgos on 12-26-2022 Lymphocytes Auto (Unsp spec) [#/Vol] 1.80 10*3/uL 0.83-4.51 [facility] Basophil percentageOrdered B y: Renard Burgos on 12-26-2022 Basophils/100 WBC (Bld) 0.4 % 0-1 [facility] Eosinophils/100 WBC (Bld) 0.6 % 0-5 [facility] Neutrophils (Bld) [#/Vol] 6.2 10*3/uL 2.0-7.7 [facility] Neutrophils/100 WBC (Bld) 69.8 % 47-70 [facility] WBC (Bld) [#/Vol] 8.9 10*3/uL 4.4-11.0 [facility] Blood erythrocytes count (nu mber/volume)Ordered By: Renard Burgos on 12-26-2022 RBC (Bld) [#/Vol] 4.58 10*6/uL 4.6-6.2 [facility] Blood hemoglobin measurement (mass/volume)Ordered By: Renard Burgos on 12-26-2022 Hemoglobin (Bld) [Mass/Vol] 14.0 g/dL 13.0-16.5 [facility] Blood lymphocytes/100 leukoc ytesOrdered By: Renard Burgos on 08-28-2023 Lymphocytes/100 WBC (Bld) 20.2 % 19-41 [facility] Blood monocytes/100 leukocyt esOrdered By: Renard Burgos on 12-26-2022 Monocytes/100 WBC (Bld) 8.6 % 0-10 [facility] Blood platelet mean volumeOr dered By: Renard Burgos on 12-26-2022 Platelet mean volume (Bld) [Entitic vol] 10.8 fL 6.2-12.0 [facility] Determination of erythrocyte mean corpuscular volume (MCV)Ordered By: Renard Burgos on 12-26-2022 MCV (RBC) [Entitic vol] 93.2 fL 80-94 [facility] Hematocrit Auto (Bld) [Volum e fraction]Ordered By: Renard Burgos on 12-26-2022 Hematocrit (Bld) [Volume fraction] 42.7 % 40-54 [facility] - Hematology and Cell countsOrdered By: Renard Burgos on 12-26-2022 Erythrocyte distribution width (RBC) [Entitic vol] 42.5 fL 35.1-43.9 [facility] Erythrocyte distribution width (RBC) [Ratio] 12.5 % 11.6-14.6 [facility] Immature granulocytes/100 WBC (Bld) 0.400 % 0.0-0.9 [facility] Comment on above: IG% - Immature Granu locytes (promyelocytes, myelocytes and metamyelocytes) > 1% indicates that a LEFT SHIFT is Present. MCH (RBC) [Entitic mass] 30.6 pg 27.0-32.0 [facility] Nucleated RBC/100 WBC (Bld) [Ratio] 0 % 0-5 [facility] MCHC Auto (RBC) [Mass/Vol]Or dered By: Renard Burgos on 12-26-2022 MCHC (RBC) [Mass/Vol] 32.8 g/dL 32-36 [facility] Platelets bldOrdered By: Lyubov Burgos on 12-26-2022 Platelets (Bld) [#/Vol] 200 10*3/uL 150-450 [facility] Absolute lymphocyte countOrd ered By: Renard Burgos on 12-19-2022 Lymphocytes Auto (Unsp spec) [#/Vol] 2.24 10*3/uL 0.83-4.51 [facility] Basophil percentageOrdered B y: Renard Burgos on 12-19-2022 Basophils/100 WBC (Bld) 0.3 % 0-1 [facility] Eosinophils/100 WBC (Bld) 0.8 % 0-5 [facility] Neutrophils (Bld) [#/Vol] 5.7 10*3/uL 2.0-7.7 [facility] Neutrophils/100 WBC (Bld) 64.1 % 47-70 [facility] WBC (Bld) [#/Vol] 8.9 10*3/uL 4.4-11.0 [facility] Blood erythrocytes count (nu mber/volume)Ordered By: Renard Burgos on 12-19-2022 RBC (Bld) [#/Vol] 4.44 10*6/uL 4.6-6.2 [facility] Blood hemoglobin measurement (mass/volume)Ordered By: Renard Burgos on 12-19-2022 Hemoglobin (Bld) [Mass/Vol] 13.5 g/dL 13.0-16.5 [facility] Blood lymphocytes/100 leukoc ytesOrdered By: Renard Burgos on 12-19-2022 Lymphocytes/100 WBC (Bld) 25.1 % 19-41 [facility] Blood monocytes/100 leukocyt esOrdered By: Renard Burgos on 12-19-2022 Monocytes/100 WBC (Bld) 9.4 % 0-10 [facility] Blood platelet mean volumeOr dered By: Renard Burgos on 12-19-2022 Platelet mean volume (Bld) [Entitic vol] 11.0 fL 6.2-12.0 [facility] Determination of erythrocyte mean corpuscular volume (MCV)Ordered By: Renard Burgos on 12-19-2022 MCV (RBC) [Entitic vol] 92.8 fL 80-94 [facility] Hematocrit Auto (Bld) [Volum e fraction]Ordered By: Renard Burgos on 12-19-2022 Hematocrit (Bld) [Volume fraction] 41.2 % 40-54 [facility] - Hematology and Cell countsOrdered By: Renard Burgos on 08-21-2023 Erythrocyte distribution width (RBC) [Entitic vol] 43.2 fL 35.1-43.9 [facility] Erythrocyte distribution width (RBC) [Ratio] 12.7 % 11.6-14.6 [facility] Immature granulocytes/100 WBC (Bld) 0.300 % 0.0-0.9 [facility] Comment on above: IG% - Immature Granu locytes (promyelocytes, myelocytes and metamyelocytes) > 1% indicates that a LEFT SHIFT is Present. MCH (RBC) [Entitic mass] 30.4 pg 27.0-32.0 [facility] Nucleated RBC/100 WBC (Bld) [Ratio] 0 % 0-5 [facility] MCHC Auto (RBC) [Mass/Vol]Or dered By: Renard Burgos on 12-19-2022 MCHC (RBC) [Mass/Vol] 32.8 g/dL 32-36 [facility] Platelets bldOrdered By: Lyubov Burgos on 12-19-2022 Platelets (Bld) [#/Vol] 194 10*3/uL 150-450 [facility] Absolute lymphocyte countOrd ered By: Renard Burgos on 12-12-2022 Lymphocytes Auto (Unsp spec) [#/Vol] 2.33 10*3/uL 0.83-4.51 [facility] Basophil percentageOrdered B y: Renard Burgos on 12-12-2022 Basophils/100 WBC (Bld) 0.6 % 0-1 [facility] Eosinophils/100 WBC (Bld) 0.9 % 0-5 [facility] Neutrophils (Bld) [#/Vol] 5.8 10*3/uL 2.0-7.7 [facility] Neutrophils/100 WBC (Bld) 63.5 % 47-70 [facility] WBC (Bld) [#/Vol] 9.1 10*3/uL 4.4-11.0 [facility] Blood erythrocytes count (nu mber/volume)Ordered By: Renard Burgos on 12-12-2022 RBC (Bld) [#/Vol] 4.52 10*6/uL 4.6-6.2 [facility] Blood hemoglobin measurement (mass/volume)Ordered By: Renard Burgos on 12-12-2022 Hemoglobin (Bld) [Mass/Vol] 13.9 g/dL 13.0-16.5 [facility] Blood lymphocytes/100 leukoc ytesOrdered By: Renard Burgos on 12-12-2022 Lymphocytes/100 WBC (Bld) 25.6 % 19-41 [facility] Blood monocytes/100 leukocyt esOrdered By: Renard Burgos on 12-12-2022 Monocytes/100 WBC (Bld) 9.1 % 0-10 [facility] Blood platelet mean volumeOr dered By: Renard Burgos on 12-12-2022 Platelet mean volume (Bld) [Entitic vol] 10.9 fL 6.2-12.0 [facility] Determination of erythrocyte mean corpuscular volume (MCV)Ordered By: Renard Burgos on 12-12-2022 MCV (RBC) [Entitic vol] 94.2 fL 80-94 [facility] Hematocrit Auto (Bld) [Volum e fraction]Ordered By: Renard Burgos on 12-12-2022 Hematocrit (Bld) [Volume fraction] 42.6 % 40-54 [facility] - Hematology and Cell countsOrdered By: Renard Burgos on 12-12-2022 Erythrocyte distribution width (RBC) [Entitic vol] 44.3 fL 35.1-43.9 [facility] Erythrocyte distribution width (RBC) [Ratio] 12.8 % 11.6-14.6 [facility] Immature granulocytes/100 WBC (Bld) 0.300 % 0.0-0.9 [facility] Comment on above: IG% - Immature Granu locytes (promyelocytes, myelocytes and metamyelocytes) > 1% indicates that a LEFT SHIFT is Present. MCH (RBC) [Entitic mass] 30.8 pg 27.0-32.0 [facility] Nucleated RBC/100 WBC (Bld) [Ratio] 0 % 0-5 [facility] MCHC Auto (RBC) [Mass/Vol]Or dered By: Renard Burgos on 12-12-2022 MCHC (RBC) [Mass/Vol] 32.6 g/dL 32-36 [facility] Platelets bldOrdered By: Lyubov Burgos on 12-12-2022 Platelets (Bld) [#/Vol] 211 10*3/uL 150-450 [facility] Absolute lymphocyte countOrd ered By: Renard Burgos on 12-05-2022 Lymphocytes Auto (Unsp spec) [#/Vol] 1.94 10*3/uL 0.83-4.51 [facility] Basophil percentageOrdered B y: Renard Burgos on 12-05-2022 Basophils/100 WBC (Bld) 0.4 % 0-1 [facility] Eosinophils/100 WBC (Bld) 0.9 % 0-5 [facility] Neutrophils (Bld) [#/Vol] 4.1 10*3/uL 2.0-7.7 [facility] Neutrophils/100 WBC (Bld) 61.2 % 47-70 [facility] WBC (Bld) [#/Vol] 6.7 10*3/uL 4.4-11.0 [facility] Blood erythrocytes count (nu mber/volume)Ordered By: Renard Burgos on 12-05-2022 RBC (Bld) [#/Vol] 4.39 10*6/uL 4.6-6.2 [facility] Blood hemoglobin measurement (mass/volume)Ordered By: Renard Bugros on 12-05-2022 Hemoglobin (Bld) [Mass/Vol] 13.3 g/dL 13.0-16.5 [facility] Blood lymphocytes/100 leukoc ytesOrdered By: Renard Burgos on 12-05-2022 Lymphocytes/100 WBC (Bld) 28.8 % 19-41 [facility] Blood monocytes/100 leukocyt esOrdered By: Renard Burgos on 12-05-2022 Monocytes/100 WBC (Bld) 8.3 % 0-10 [facility] Blood platelet mean volumeOr dered By: Renard Burgos on 12-05-2022 Platelet mean volume (Bld) [Entitic vol] 10.8 fL 6.2-12.0 [facility] Determination of erythrocyte mean corpuscular volume (MCV)Ordered By: Renard Burgos on 12-05-2022 MCV (RBC) [Entitic vol] 90.7 fL 80-94 [facility] Hematocrit Auto (Bld) [Volum e fraction]Ordered By: Renard Burgos on 12-05-2022 Hematocrit (Bld) [Volume fraction] 39.8 % 40-54 [facility] - Hematology and Cell countsOrdered By: Renard Burgos on 12-05-2022 Erythrocyte distribution width (RBC) [Entitic vol] 41.8 fL 35.1-43.9 [facility] Erythrocyte distribution width (RBC) [Ratio] 12.6 % 11.6-14.6 [facility] Immature granulocytes/100 WBC (Bld) 0.400 % 0.0-0.9 [facility] Comment on above: IG% - Immature Granu locytes (promyelocytes, myelocytes and metamyelocytes) > 1% indicates that a LEFT SHIFT is Present. MCH (RBC) [Entitic mass] 30.3 pg 27.0-32.0 [facility] Nucleated RBC/100 WBC (Bld) [Ratio] 0 % 0-5 [facility] MCHC Auto (RBC) [Mass/Vol]Or dered By: Renard Burgos on 12-05-2022 MCHC (RBC) [Mass/Vol] 33.4 g/dL 32-36 [facility] Platelets bldOrdered By: Lyubov Burgos on 12-05-2022 Platelets (Bld) [#/Vol] 208 10*3/uL 150-450 [facility] Absolute lymphocyte countOrd ered By: Renard Burgos on 11-28-2022 Lymphocytes Auto (Unsp spec) [#/Vol] 2.07 10*3/uL 0.83-4.51 [facility] Basophil percentageOrdered B y: Renard Burgos on 11-28-2022 Basophils/100 WBC (Bld) 0.4 % 0-1 [facility] Eosinophils/100 WBC (Bld) 0.6 % 0-5 [facility] Neutrophils (Bld) [#/Vol] 5.1 10*3/uL 2.0-7.7 [facility] Neutrophils/100 WBC (Bld) 64.6 % 47-70 [facility] WBC (Bld) [#/Vol] 7.9 10*3/uL 4.4-11.0 [facility] Blood erythrocytes count (nu mber/volume)Ordered By: Renard Burgos on 11-28-2022 RBC (Bld) [#/Vol] 4.54 10*6/uL 4.6-6.2 [facility] Blood hemoglobin measurement (mass/volume)Ordered By: Renard Burgos on 11-28-2022 Hemoglobin (Bld) [Mass/Vol] 13.7 g/dL 13.0-16.5 [facility] Blood lymphocytes/100 leukoc ytesOrdered By: Renard Burgos on 11-28-2022 Lymphocytes/100 WBC (Bld) 26.2 % 19-41 [facility] Blood monocytes/100 leukocyt esOrdered By: Renard Burgos on 11-28-2022 Monocytes/100 WBC (Bld) 7.7 % 0-10 [facility] Blood platelet mean volumeOr dered By: Renard Burgos on 11-28-2022 Platelet mean volume (Bld) [Entitic vol] 10.6 fL 6.2-12.0 [facility] Determination of erythrocyte mean corpuscular volume (MCV)Ordered By: Renard Burgos on 11-28-2022 MCV (RBC) [Entitic vol] 93.6 fL 80-94 [facility] Hematocrit Auto (Bld) [Volum e fraction]Ordered By: Renard Burgos on 11-28-2022 Hematocrit (Bld) [Volume fraction] 42.5 % 40-54 [facility] - Hematology and Cell countsOrdered By: Renard Burgos on 11-28-2022 Erythrocyte distribution width (RBC) [Entitic vol] 43.5 fL 35.1-43.9 [facility] Erythrocyte distribution width (RBC) [Ratio] 12.7 % 11.6-14.6 [facility] Immature granulocytes/100 WBC (Bld) 0.500 % 0.0-0.9 [facility] Comment on above: IG% - Immature Granu locytes (promyelocytes, myelocytes and metamyelocytes) > 1% indicates that a LEFT SHIFT is Present. MCH (RBC) [Entitic mass] 30.2 pg 27.0-32.0 [facility] Nucleated RBC/100 WBC (Bld) [Ratio] 0 % 0-5 [facility] MCHC Auto (RBC) [Mass/Vol]Or dered By: Renard Burgos on 11-28-2022 MCHC (RBC) [Mass/Vol] 32.2 g/dL 32-36 [facility] Platelets bldOrdered By: Lyubov Burgos on 11-28-2022 Platelets (Bld) [#/Vol] 201 10*3/uL 150-450 [facility] Absolute lymphocyte countOrd ered By: Renard Burgos on 11-21-2022 Lymphocytes Auto (Unsp spec) [#/Vol] 2.32 10*3/uL 0.83-4.51 [facility] Basophil percentageOrdered B y: Renard Burgos on 11-21-2022 Basophils/100 WBC (Bld) 0.6 % 0-1 [facility] Eosinophils/100 WBC (Bld) 0.7 % 0-5 [facility] Neutrophils (Bld) [#/Vol] 5.0 10*3/uL 2.0-7.7 [facility] Neutrophils/100 WBC (Bld) 60.6 % 47-70 [facility] WBC (Bld) [#/Vol] 8.2 10*3/uL 4.4-11.0 [facility] Blood erythrocytes count (nu mber/volume)Ordered By: Renard Burgos on 11-21-2022 RBC (Bld) [#/Vol] 4.71 10*6/uL 4.6-6.2 [facility] Blood hemoglobin measurement (mass/volume)Ordered By: Renard Burgos on 11-21-2022 Hemoglobin (Bld) [Mass/Vol] 14.3 g/dL 13.0-16.5 [facility] Blood lymphocytes/100 leukoc ytesOrdered By: Renard Burgos on 11-21-2022 Lymphocytes/100 WBC (Bld) 28.2 % 19-41 [facility] Blood monocytes/100 leukocyt esOrdered By: Renard Burgos on 11-21-2022 Monocytes/100 WBC (Bld) 9.2 % 0-10 [facility] Blood platelet mean volumeOr dered By: Renard Burgos on 11-21-2022 Platelet mean volume (Bld) [Entitic vol] 10.4 fL 6.2-12.0 [facility] Determination of erythrocyte mean corpuscular volume (MCV)Ordered By: Renard Burgos on 11-21-2022 MCV (RBC) [Entitic vol] 91.9 fL 80-94 [facility] Hematocrit Auto (Bld) [Volum e fraction]Ordered By: Renard Burgos on 11-21-2022 Hematocrit (Bld) [Volume fraction] 43.3 % 40-54 [facility] - Hematology and Cell countsOrdered By: Renard Burgos on 11-21-2022 Erythrocyte distribution width (RBC) [Entitic vol] 43.1 fL 35.1-43.9 [facility] Erythrocyte distribution width (RBC) [Ratio] 12.8 % 11.6-14.6 [facility] Immature granulocytes/100 WBC (Bld) 0.700 % 0.0-0.9 [facility] Comment on above: IG% - Immature Granu locytes (promyelocytes, myelocytes and metamyelocytes) > 1% indicates that a LEFT SHIFT is Present. MCH (RBC) [Entitic mass] 30.4 pg 27.0-32.0 [facility] Nucleated RBC/100 WBC (Bld) [Ratio] 0 % 0-5 [facility] MCHC Auto (RBC) [Mass/Vol]Or dered By: Renard Burgos on 11-21-2022 MCHC (RBC) [Mass/Vol] 33.0 g/dL 32-36 [facility] Platelets bldOrdered By: Lyubov Burgos on 11-21-2022 Platelets (Bld) [#/Vol] 219 10*3/uL 150-450 [facility] Absolute lymphocyte countOrd ered By: Renard Burgos on 11-14-2022 Lymphocytes Auto (Unsp spec) [#/Vol] 1.82 10*3/uL 0.83-4.51 [facility] Basophil percentageOrdered B y: Renard Burgos on 11-14-2022 Basophils/100 WBC (Bld) 0.4 % 0-1 [facility] Chloride [Moles/Vol] 107 mmol/L 98-107 [facility] Eosinophils/100 WBC (Bld) 0.4 % 0-5 [facility] Glucose [Mass/Vol] 121 mg/dL 74-106 [facility] Comment on above: Fasting Glucose resu lt from 100 to 125 mg/dL suggests IMPAIRED HOMEOSTASIS per A.D.A. criteria. Neutrophils (Bld) [#/Vol] 4.7 10*3/uL 2.0-7.7 [facility] Neutrophils/100 WBC (Bld) 66.6 % 47-70 [facility] Potassium [Moles/Vol] 3.7 mmol/L 3.5-5.1 [facility] Sodium [Moles/Vol] 141 mmol/L 136-145 [facility] WBC (Bld) [#/Vol] 7.1 10*3/uL 4.4-11.0 [facility] Blood erythrocytes count (nu mber/volume)Ordered By: Renard Burgos on 11-14-2022 RBC (Bld) [#/Vol] 4.35 10*6/uL 4.6-6.2 [facility] Blood hemoglobin measurement (mass/volume)Ordered By: Renard Burgos on 11-14-2022 Hemoglobin (Bld) [Mass/Vol] 13.6 g/dL 13.0-16.5 [facility] Blood lymphocytes/100 leukoc ytesOrdered By: Renard Burgos on 11-14-2022 Lymphocytes/100 WBC (Bld) 25.6 % 19-41 [facility] Blood monocytes/100 leukocyt esOrdered By: Renard Burgos on 11-14-2022 Monocytes/100 WBC (Bld) 6.6 % 0-10 [facility] Blood platelet mean volumeOr dered By: Renard Burgos on 11-14-2022 Platelet mean volume (Bld) [Entitic vol] 10.9 fL 6.2-12.0 [facility] Determination of erythrocyte mean corpuscular volume (MCV)Ordered By: Renard Burgos on 11-14-2022 MCV (RBC) [Entitic vol] 93.3 fL 80-94 [facility] Hematocrit Auto (Bld) [Volum e fraction]Ordered By: Renard Burgos on 11-14-2022 Hematocrit (Bld) [Volume fraction] 40.6 % 40-54 [facility] - Chemistry and C hemistry - challengeOrdered By: Renard Burgos on 11-14-2022 CO2 [Moles/Vol] 31.0 mmol/L 21.0-32.0 [facility] Urea nitrogen/Creatinine [Mass ratio] 26.0 mg/mg 10-20 [facility] - Hematology and Cell countsOrdered By: Renard Burgos on 11-14-2022 Erythrocyte distribution width (RBC) [Entitic vol] 43.9 fL 35.1-43.9 [facility] Erythrocyte distribution width (RBC) [Ratio] 12.8 % 11.6-14.6 [facility] Immature granulocytes/100 WBC (Bld) 0.400 % 0.0-0.9 [facility] Comment on above: IG% - Immature Granu locytes (promyelocytes, myelocytes and metamyelocytes) > 1% indicates that a LEFT SHIFT is Present. MCH (RBC) [Entitic mass] 31.3 pg 27.0-32.0 [facility] Nucleated RBC/100 WBC (Bld) [Ratio] 0 % 0-5 [facility] MCHC Auto (RBC) [Mass/Vol]Or dered By: Renard Burgos on 11-14-2022 MCHC (RBC) [Mass/Vol] 33.5 g/dL 32-36 [facility] No Panel InformationOrdered By: Renard Burgos on 11-14-2022 Estimated GFR (MDRD) Amer 147 mL/min >60 [facility] Comment on above: GFR Calc Estimated GFR (MDRD) Non-Af Amer 122 mL/min >60 [facility] Comment on above: Non- GFR Calc Platelets bldOrdered By: Lyubov Burgos on 11-14-2022 Platelets (Bld) [#/Vol] 202 10*3/uL 150-450 [facility] Serum or plasma calcium gordy urement (mass/volume)Ordered By: Renard Burgos on 11-14-2022 Calcium [Mass/Vol] 8.2 mg/dL 8.5-10.1 [facility] Serum or plasma creatinine m easurement (mass/volume)Ordered By: Renard Burgos on 11-14-2022 Creatinine [Mass/Vol] 0.69 mg/dL 0.70-1.30 [facility] Comment on above: The validity of the calculated GFR & GFRAA in patients over 70 years has not been determined. Clinical correlation is essential. Serum or plasma urea nitroge n measurement (mass/volume)Ordered By: Renard Burgos on 11-14-2022 Urea nitrogen [Mass/Vol] 18 mg/dL 7-18 [facility] Thin prep Papanicolaou smear with manual screeningOrdered By: Renard Burgos on 11-14-2022 Thin prep Papanicolaou smear with manual screening 3 5-15 [facility] Absolute lymphocyte countOrd ered By: Renard Burgos on 11-07-2022 Lymphocytes Auto (Unsp spec) [#/Vol] 1.99 10*3/uL 0.83-4.51 [facility] Basophil percentageOrdered B y: Renard Burgos on 11-07-2022 Basophils/100 WBC (Bld) 0.8 % 0-1 [facility] Eosinophils/100 WBC (Bld) 0.5 % 0-5 [facility] Neutrophils (Bld) [#/Vol] 5.1 10*3/uL 2.0-7.7 [facility] Neutrophils/100 WBC (Bld) 64.0 % 47-70 [facility] WBC (Bld) [#/Vol] 8.0 10*3/uL 4.4-11.0 [facility] Blood erythrocytes count (nu mber/volume)Ordered By: Renard Burgos on 11-07-2022 RBC (Bld) [#/Vol] 4.45 10*6/uL 4.6-6.2 [facility] Blood hemoglobin measurement (mass/volume)Ordered By: Renard Burgos on 11-07-2022 Hemoglobin (Bld) [Mass/Vol] 13.7 g/dL 13.0-16.5 [facility] Blood lymphocytes/100 leukoc ytesOrdered By: Renard Burgos on 11-07-2022 Lymphocytes/100 WBC (Bld) 25.0 % 19-41 [facility] Blood monocytes/100 leukocyt esOrdered By: Renard Burgso on 11-07-2022 Monocytes/100 WBC (Bld) 9.4 % 0-10 [facility] Blood platelet mean volumeOr dered By: Renard Burgos on 11-07-2022 Platelet mean volume (Bld) [Entitic vol] 10.7 fL 6.2-12.0 [facility] Determination of erythrocyte mean corpuscular volume (MCV)Ordered By: Renard Burgos on 11-07-2022 MCV (RBC) [Entitic vol] 91.5 fL 80-94 [facility] Hematocrit Auto (Bld) [Volum e fraction]Ordered By: Renard Burgos on 11-07-2022 Hematocrit (Bld) [Volume fraction] 40.7 % 40-54 [facility] - Hematology and Cell countsOrdered By: Renard Burgos on 11-07-2022 Erythrocyte distribution width (RBC) [Entitic vol] 42.4 fL 35.1-43.9 [facility] Erythrocyte distribution width (RBC) [Ratio] 12.8 % 11.6-14.6 [facility] Immature granulocytes/100 WBC (Bld) 0.300 % 0.0-0.9 [facility] Comment on above: IG% - Immature Granu locytes (promyelocytes, myelocytes and metamyelocytes) > 1% indicates that a LEFT SHIFT is Present. MCH (RBC) [Entitic mass] 30.8 pg 27.0-32.0 [facility] Nucleated RBC/100 WBC (Bld) [Ratio] 0 % 0-5 [facility] MCHC Auto (RBC) [Mass/Vol]Or dered By: Renard Burgos on 11-07-2022 MCHC (RBC) [Mass/Vol] 33.7 g/dL 32-36 [facility] Platelets bldOrdered By: Lyubov Burgos on 11-07-2022 Platelets (Bld) [#/Vol] 220 10*3/uL 150-450 [facility] Absolute lymphocyte countOrd ered By: Renard Burgos on 10-31-2022 Lymphocytes Auto (Unsp spec) [#/Vol] 1.97 10*3/uL 0.83-4.51 [facility] Basophil percentageOrdered B y: Renard Burgos on 10-31-2022 Basophils/100 WBC (Bld) 0.5 % 0-1 [facility] Eosinophils/100 WBC (Bld) 0.6 % 0-5 [facility] Neutrophils (Bld) [#/Vol] 6.7 10*3/uL 2.0-7.7 [facility] Neutrophils/100 WBC (Bld) 69.9 % 47-70 [facility] WBC (Bld) [#/Vol] 9.6 10*3/uL 4.4-11.0 [facility] Blood erythrocytes count (nu mber/volume)Ordered By: Renard Burgos on 10-31-2022 RBC (Bld) [#/Vol] 4.47 10*6/uL 4.6-6.2 [facility] Blood hemoglobin measurement (mass/volume)Ordered By: Renard Burgos on 10-31-2022 Hemoglobin (Bld) [Mass/Vol] 13.5 g/dL 13.0-16.5 [facility] Blood lymphocytes/100 leukoc ytesOrdered By: Renard Burgos on 10-31-2022 Lymphocytes/100 WBC (Bld) 20.5 % 19-41 [facility] Blood monocytes/100 leukocyt esOrdered By: Renard Burgos on 10-31-2022 Monocytes/100 WBC (Bld) 7.9 % 0-10 [facility] Blood platelet mean volumeOr dered By: Renard Burgos on 10-31-2022 Platelet mean volume (Bld) [Entitic vol] 11.1 fL 6.2-12.0 [facility] Determination of erythrocyte mean corpuscular volume (MCV)Ordered By: Renard Burgos on 10-31-2022 MCV (RBC) [Entitic vol] 92.4 fL 80-94 [facility] Hematocrit Auto (Bld) [Volum e fraction]Ordered By: Renard Burgos on 10-31-2022 Hematocrit (Bld) [Volume fraction] 41.3 % 40-54 [facility] - Hematology and Cell countsOrdered By: Renard Burgos on 10-31-2022 Erythrocyte distribution width (RBC) [Entitic vol] 42.9 fL 35.1-43.9 [facility] Erythrocyte distribution width (RBC) [Ratio] 12.7 % 11.6-14.6 [facility] Immature granulocytes/100 WBC (Bld) 0.600 % 0.0-0.9 [facility] Comment on above: IG% - Immature Granu locytes (promyelocytes, myelocytes and metamyelocytes) > 1% indicates that a LEFT SHIFT is Present. MCH (RBC) [Entitic mass] 30.2 pg 27.0-32.0 [facility] Nucleated RBC/100 WBC (Bld) [Ratio] 0 % 0-5 [facility] MCHC Auto (RBC) [Mass/Vol]Or dered By: Renard Burgos on 10-31-2022 MCHC (RBC) [Mass/Vol] 32.7 g/dL 32-36 [facility] Platelets bldOrdered By: [facility] er [facility] on 10-31-2022 Platelets (Bld) [#/Vol] 221 10*3/uL 150-450 [facility] Absolute lymphocyte countOrd ered By: Renard Burgos on 10-24-2022 Lymphocytes Auto (Unsp spec) [#/Vol] 1.96 10*3/uL 0.83-4.51 [facility] Basophil percentageOrdered B y: Renard Burgos on 10-24-2022 Basophils/100 WBC (Bld) 0.4 % 0-1 [facility] Eosinophils/100 WBC (Bld) 0.7 % 0-5 [facility] Neutrophils (Bld) [#/Vol] 4.5 10*3/uL 2.0-7.7 [facility] Neutrophils/100 WBC (Bld) 61.9 % 47-70 [facility] WBC (Bld) [#/Vol] 7.3 10*3/uL 4.4-11.0 [facility] Blood erythrocytes count (nu mber/volume)Ordered By: Renard Burgos on 10-24-2022 RBC (Bld) [#/Vol] 4.41 10*6/uL 4.6-6.2 [facility] Blood hemoglobin measurement (mass/volume)Ordered By: Renard Burgos on 10-24-2022 Hemoglobin (Bld) [Mass/Vol] 13.2 g/dL 13.0-16.5 [facility] Blood lymphocytes/100 leukoc ytesOrdered By: Renard Burgos on 10-24-2022 Lymphocytes/100 WBC (Bld) 27.0 % 19-41 [facility] Blood monocytes/100 leukocyt esOrdered By: Renard Burgos on 10-24-2022 Monocytes/100 WBC (Bld) 9.4 % 0-10 [facility] Blood platelet mean volumeOr dered By: Renard Burgos on 10-24-2022 Platelet mean volume (Bld) [Entitic vol] 10.9 fL 6.2-12.0 [facility] Determination of erythrocyte mean corpuscular volume (MCV)Ordered By: Renard Burgos on 10-24-2022 MCV (RBC) [Entitic vol] 92.1 fL 80-94 [facility] Hematocrit Auto (Bld) [Volum e fraction]Ordered By: Renard Burgos on 10-24-2022 Hematocrit (Bld) [Volume fraction] 40.6 % 40-54 [facility] - Hematology and Cell countsOrdered By: Renard Burgos on 10-24-2022 Erythrocyte distribution width (RBC) [Entitic vol] 42.8 fL 35.1-43.9 [facility] Erythrocyte distribution width (RBC) [Ratio] 12.8 % 11.6-14.6 [facility] Immature granulocytes/100 WBC (Bld) 0.600 % 0.0-0.9 [facility] Comment on above: IG% - Immature Granu locytes (promyelocytes, myelocytes and metamyelocytes) > 1% indicates that a LEFT SHIFT is Present. MCH (RBC) [Entitic mass] 29.9 pg 27.0-32.0 [facility] Nucleated RBC/100 WBC (Bld) [Ratio] 0 % 0-5 [facility] MCHC Auto (RBC) [Mass/Vol]Or dered By: Renard Burgos on 10-24-2022 MCHC (RBC) [Mass/Vol] 32.5 g/dL 32-36 [facility] Platelets bldOrdered By: Lyubov Burgos on 10-24-2022 Platelets (Bld) [#/Vol] 213 10*3/uL 150-450 [facility] Absolute lymphocyte countOrd ered By: Renard Burgos on 10-17-2022 Lymphocytes Auto (Unsp spec) [#/Vol] 2.05 10*3/uL 0.83-4.51 [facility] Basophil percentageOrdered B y: Renard Burgos on 10-17-2022 Basophils/100 WBC (Bld) 0.4 % 0-1 [facility] Eosinophils/100 WBC (Bld) 0.5 % 0-5 [facility] Neutrophils (Bld) [#/Vol] 6.7 10*3/uL 2.0-7.7 [facility] Neutrophils/100 WBC (Bld) 70.9 % 47-70 [facility] WBC (Bld) [#/Vol] 9.4 10*3/uL 4.4-11.0 [facility] Blood erythrocytes count (nu mber/volume)Ordered By: Renard Burgos on 10-17-2022 RBC (Bld) [#/Vol] 4.33 10*6/uL 4.6-6.2 [facility] Blood hemoglobin measurement (mass/volume)Ordered By: Renard Burgos on 10-17-2022 Hemoglobin (Bld) [Mass/Vol] 13.3 g/dL 13.0-16.5 [facility] Blood lymphocytes/100 leukoc ytesOrdered By: Renard Burgos on 10-17-2022 Lymphocytes/100 WBC (Bld) 21.7 % 19-41 [facility] Blood monocytes/100 leukocyt esOrdered By: Renard Burgos on 10-17-2022 Monocytes/100 WBC (Bld) 6.1 % 0-10 [facility] Blood platelet mean volumeOr dered By: Renard Burgos on 10-17-2022 Platelet mean volume (Bld) [Entitic vol] 10.9 fL 6.2-12.0 [facility] Determination of erythrocyte mean corpuscular volume (MCV)Ordered By: Renard Burgos on 10-17-2022 MCV (RBC) [Entitic vol] 93.8 fL 80-94 [facility] Hematocrit Auto (Bld) [Volum e fraction]Ordered By: Renard Burgos on 10-17-2022 Hematocrit (Bld) [Volume fraction] 40.6 % 40-54 [facility] - Hematology and Cell countsOrdered By: Renard Burgos on 10-17-2022 Erythrocyte distribution width (RBC) [Entitic vol] 42.7 fL 35.1-43.9 [facility] Erythrocyte distribution width (RBC) [Ratio] 12.4 % 11.6-14.6 [facility] Immature granulocytes/100 WBC (Bld) 0.400 % 0.0-0.9 [facility] Comment on above: IG% - Immature Granu locytes (promyelocytes, myelocytes and metamyelocytes) > 1% indicates that a LEFT SHIFT is Present. MCH (RBC) [Entitic mass] 30.7 pg 27.0-32.0 [facility] Nucleated RBC/100 WBC (Bld) [Ratio] 0 % 0-5 [facility] MCHC Auto (RBC) [Mass/Vol]Or dered By: Rneard Burgos on 10-17-2022 MCHC (RBC) [Mass/Vol] 32.8 g/dL 32-36 [facility] Platelets bldOrdered By: Lyubov Burgos on 10-17-2022 Platelets (Bld) [#/Vol] 186 10*3/uL 150-450 [facility] Absolute lymphocyte countOrd ered By: Renard Burgos on 10-10-2022 Lymphocytes Auto (Unsp spec) [#/Vol] 2.21 10*3/uL 0.83-4.51 [facility] Basophil percentageOrdered B y: Renard Burgos on 10-10-2022 Basophils/100 WBC (Bld) 0.6 % 0-1 [facility] Eosinophils/100 WBC (Bld) 0.6 % 0-5 [facility] Neutrophils (Bld) [#/Vol] 4.7 10*3/uL 2.0-7.7 [facility] Neutrophils/100 WBC (Bld) 59.6 % 47-70 [facility] WBC (Bld) [#/Vol] 7.9 10*3/uL 4.4-11.0 [facility] Blood erythrocytes count (nu mber/volume)Ordered By: Renard Burgos on 10-10-2022 RBC (Bld) [#/Vol] 4.78 10*6/uL 4.6-6.2 [facility] Blood hemoglobin measurement (mass/volume)Ordered By: Renard Burgos on 10-10-2022 Hemoglobin (Bld) [Mass/Vol] 14.4 g/dL 13.0-16.5 [facility] Blood lymphocytes/100 leukoc ytesOrdered By: Renard Burgos on 10-10-2022 Lymphocytes/100 WBC (Bld) 28.0 % 19-41 [facility] Blood monocytes/100 leukocyt esOrdered By: Renard Burgos on 10-10-2022 Monocytes/100 WBC (Bld) 10.8 % 0-10 [facility] Blood platelet mean volumeOr dered By: Renard Burgos on 10-10-2022 Platelet mean volume (Bld) [Entitic vol] 10.7 fL 6.2-12.0 [facility] Determination of erythrocyte mean corpuscular volume (MCV)Ordered By: Renard Burgos on 10-10-2022 MCV (RBC) [Entitic vol] 94.8 fL 80-94 [facility] Hematocrit Auto (Bld) [Volum e fraction]Ordered By: Renard Burgos on 10-10-2022 Hematocrit (Bld) [Volume fraction] 45.3 % 40-54 [facility] - Hematology and Cell countsOrdered By: Renard Burgos on 10-10-2022 Erythrocyte distribution width (RBC) [Entitic vol] 43.8 fL 35.1-43.9 [facility] Erythrocyte distribution width (RBC) [Ratio] 12.6 % 11.6-14.6 [facility] Immature granulocytes/100 WBC (Bld) 0.400 % 0.0-0.9 [facility] Comment on above: IG% - Immature Granu locytes (promyelocytes, myelocytes and metamyelocytes) > 1% indicates that a LEFT SHIFT is Present. MCH (RBC) [Entitic mass] 30.1 pg 27.0-32.0 [facility] Nucleated RBC/100 WBC (Bld) [Ratio] 0 % 0-5 [facility] MCHC Auto (RBC) [Mass/Vol]Or dered By: Renard Burgos on 10-10-2022 MCHC (RBC) [Mass/Vol] 31.8 g/dL 32-36 [facility] Platelets bldOrdered By: Lyubov Burgos on 10-10-2022 Platelets (Bld) [#/Vol] 198 10*3/uL 150-450 [facility] Absolute lymphocyte countOrd ered By: Renard Burgos on 10-03-2022 Lymphocytes Auto (Unsp spec) [#/Vol] 2.00 10*3/uL 0.83-4.51 [facility] Basophil percentageOrdered B y: Renard Burgos on 10-03-2022 Basophils/100 WBC (Bld) 0.6 % 0-1 [facility] Bilirubin [Mass/Vol] 0.30 mg/dL 0.20-1.00 [facility] Comment on above: For patients on eltr ombopag therapy, use of Dimension Jackson TBIL is not recommended. Chloride [Moles/Vol] 109 mmol/L 98-107 [facility] Cholesterol [Mass/Vol] 129 mg/dL <200 [facility] Comment on above: <200 mg/dL Desirable 200-240 mg/dL Borderline >240 mg/dL High Risk Eosinophils/100 WBC (Bld) 0.8 % 0-5 [facility] Glucose [Mass/Vol] 82 mg/dL 74-106 [facility] Neutrophils (Bld) [#/Vol] 5.1 10*3/uL 2.0-7.7 [facility] Neutrophils/100 WBC (Bld) 63.2 % 47-70 [facility] Potassium [Moles/Vol] 3.9 mmol/L 3.5-5.1 [facility] Protein [Mass/Vol] 6.1 g/dL 6.4-8.2 [facility] Sodium [Moles/Vol] 140 mmol/L 136-145 [facility] Triglyceride [Mass/Vol] 209 mg/dL <199 [facility] Comment on above: The drugs N-Acetylcy steine and Metamizole may falsely depress this assay.Serum Triglycerides Reference Interval Normal <150 mg/dL Borderline high 150 - 199 mg/dL High 200 - 499 mg/dL Very High > or = 500 mg/dL WBC (Bld) [#/Vol] 8.0 10*3/uL 4.4-11.0 [facility] Blood erythrocytes count (nu mber/volume)Ordered By: Renard Burgos on 10-03-2022 RBC (Bld) [#/Vol] 4.58 10*6/uL 4.6-6.2 [facility] Blood hemoglobin measurement (mass/volume)Ordered By: Renard Burgos on 10-03-2022 Hemoglobin (Bld) [Mass/Vol] 13.9 g/dL 13.0-16.5 [facility] Blood lymphocytes/100 leukoc ytesOrdered By: Renard Burgos on 10-03-2022 Lymphocytes/100 WBC (Bld) 25.1 % 19-41 [facility] Blood monocytes/100 leukocyt esOrdered By: Renard Burgos on 10-03-2022 Monocytes/100 WBC (Bld) 10.0 % 0-10 [facility] Blood platelet mean volumeOr dered By: Renard Burgos on 10-03-2022 Platelet mean volume (Bld) [Entitic vol] 11.1 fL 6.2-12.0 [facility] Determination of erythrocyte mean corpuscular volume (MCV)Ordered By: Renard Burgos on 10-03-2022 MCV (RBC) [Entitic vol] 93.9 fL 80-94 [facility] Hematocrit Auto (Bld) [Volum e fraction]Ordered By: Renard Burgos on 10-03-2022 Hematocrit (Bld) [Volume fraction] 43.0 % 40-54 [facility] - Chemistry and C hemistry - challengeOrdered By: Renard Burgos on 10-03-2022 ALP [Catalytic activity/Vol] 98 U/L 45-117 [facility] ALT [Catalytic activity/Vol] 19 U/L 16-61 [facility] CO2 [Moles/Vol] 31.0 mmol/L 21.0-32.0 [facility] Globulin (S) [Mass/Vol] 3.1 g/dL 2.2-4.2 [facility] Urea nitrogen/Creatinine [Mass ratio] 25.6 mg/mg 10-20 [facility] - Hematology and Cell countsOrdered By: Renard Burgos on 10-03-2022 Erythrocyte distribution width (RBC) [Entitic vol] 43.8 fL 35.1-43.9 [facility] Erythrocyte distribution width (RBC) [Ratio] 12.7 % 11.6-14.6 [facility] Immature granulocytes/100 WBC (Bld) 0.300 % 0.0-0.9 [facility] Comment on above: IG% - Immature Granu locytes (promyelocytes, myelocytes and metamyelocytes) > 1% indicates that a LEFT SHIFT is Present. MCH (RBC) [Entitic mass] 30.3 pg 27.0-32.0 [facility] Nucleated RBC/100 WBC (Bld) [Ratio] 0 % 0-5 [facility] MCHC Auto (RBC) [Mass/Vol]Or dered By: Renard Burgos on 10-03-2022 MCHC (RBC) [Mass/Vol] 32.3 g/dL 32-36 [facility] No Panel InformationOrdered By: Renard Burgos on 10-03-2022 Estimated GFR (MDRD) Amer 165 mL/min >60 [facility] Comment on above: GFR Calc Estimated GFR (MDRD) Non-Af Amer 137 mL/min >60 [facility] Comment on above: Non- GFR Calc Platelets bldOrdered By: Lyubov Burgos on 10-03-2022 Platelets (Bld) [#/Vol] 204 10*3/uL 150-450 [facility] Serum or plasma albumin gordy urement (mass/volume)Ordered By: Renard Burgos on 10-03-2022 Albumin [Mass/Vol] 3.0 g/dL 3.2-5.0 [facility] Serum or plasma albumin/glob ulin mass ratioOrdered By: Renard Burgos on 10-03-2022 Albumin/Globulin [Mass ratio] 1.0 {ratio} 0.9-2.4 [facility] Serum or plasma calcium gordy urement (mass/volume)Ordered By: Renard Burgos on 10-03-2022 Calcium [Mass/Vol] 8.4 mg/dL 8.5-10.1 [facility] Serum or plasma cholesterol in HDL measurement (mass/volume)Ordered By: Renard Burgos on 10-03-2022 Cholesterol in HDL [Mass/Vol] 29 mg/dL >40 [facility] Comment on above: The drugs N-Acetylcy steine and Metamizole may falsely depress this assay. Reference Range HDL <40 mg/dL Low HDL Cholesterol HDL >or= 60 mg/dL High HDL Cholesterol Serum or plasma cholesterol in VLDL measurement (mass/volume)Ordered By: Renard Burgos on 10-03-2022 Cholesterol in VLDL [Mass/Vol] 42 mg/dL 5-40 [facility] Serum or plasma creatinine m easurement (mass/volume)Ordered By: Renard Burgos on 10-03-2022 Creatinine [Mass/Vol] 0.63 mg/dL 0.70-1.30 [facility] Comment on above: The validity of the calculated GFR & GFRAA in patients over 70 years has not been determined. Clinical correlation is essential. Serum or plasma low density lipoprotein (LDL) cholesterol measurement (mass/volume)Ordered By: Renard Burgos on 10-03-2022 Cholesterol in LDL [Mass/Vol] 58 mg/dL 0-130 [facility] Serum or plasma urea nitroge n measurement (mass/volume)Ordered By: Renard Burgos on 10-03-2022 Urea nitrogen [Mass/Vol] 16 mg/dL 7-18 [facility] Thin prep Papanicolaou smear with manual screeningOrdered By: Renard Burgos on 10-03-2022 Thin prep Papanicolaou smear with manual screening 13 U/L 15-37 [facility] Thin prep Papanicolaou smear with manual screening 0 5-15 [facility] Absolute lymphocyte countOrd ered By: Renard Burgos on 09-19-2022 Lymphocytes Auto (Unsp spec) [#/Vol] 1.59 10*3/uL 0.83-4.51 [facility] Basophil percentageOrdered B y: Renard Burgos on 09-19-2022 Basophils/100 WBC (Bld) 0.5 % 0-1 [facility] Eosinophils/100 WBC (Bld) 0.3 % 0-5 [facility] Neutrophils (Bld) [#/Vol] 7.4 10*3/uL 2.0-7.7 [facility] Neutrophils/100 WBC (Bld) 75.0 % 47-70 [facility] WBC (Bld) [#/Vol] 9.9 10*3/uL 4.4-11.0 [facility] Blood erythrocytes count (nu mber/volume)Ordered By: Renard Burgos on 09-19-2022 RBC (Bld) [#/Vol] 4.46 10*6/uL 4.6-6.2 [facility] Blood hemoglobin measurement (mass/volume)Ordered By: Renard Burgos on 09-19-2022 Hemoglobin (Bld) [Mass/Vol] 13.5 g/dL 13.0-16.5 [facility] Blood lymphocytes/100 leukoc ytesOrdered By: Renard Burgos on 09-19-2022 Lymphocytes/100 WBC (Bld) 16.1 % 19-41 [facility] Blood monocytes/100 leukocyt esOrdered By: Renard Burgos on 09-19-2022 Monocytes/100 WBC (Bld) 7.6 % 0-10 [facility] Blood platelet mean volumeOr dered By: Renard Burgos on 09-19-2022 Platelet mean volume (Bld) [Entitic vol] 10.8 fL 6.2-12.0 [facility] Determination of erythrocyte mean corpuscular volume (MCV)Ordered By: Renard Burgos on 09-19-2022 MCV (RBC) [Entitic vol] 92.2 fL 80-94 [facility] Hematocrit Auto (Bld) [Volum e fraction]Ordered By: Renard Burgos on 09-19-2022 Hematocrit (Bld) [Volume fraction] 41.1 % 40-54 [facility] - Hematology and Cell countsOrdered By: Renard Burgos on 09-19-2022 Erythrocyte distribution width (RBC) [Entitic vol] 41.2 fL 35.1-43.9 [facility] Erythrocyte distribution width (RBC) [Ratio] 12.3 % 11.6-14.6 [facility] Immature granulocytes/100 WBC (Bld) 0.500 % 0.0-0.9 [facility] Comment on above: IG% - Immature Granu locytes (promyelocytes, myelocytes and metamyelocytes) > 1% indicates that a LEFT SHIFT is Present. MCH (RBC) [Entitic mass] 30.3 pg 27.0-32.0 [facility] Nucleated RBC/100 WBC (Bld) [Ratio] 0 % 0-5 [facility] MCHC Auto (RBC) [Mass/Vol]Or dered By: Renard Burgos on 09-19-2022 MCHC (RBC) [Mass/Vol] 32.8 g/dL 32-36 [facility] Platelets bldOrdered By: Pet lizy Loretta on 09-19-2022 Platelets (Bld) [#/Vol] 245 10*3/uL 150-450 [facility] Absolute lymphocyte countOrd ered By: Renard Burgos on 09-12-2022 Lymphocytes Auto (Unsp spec) [#/Vol] 2.11 10*3/uL 0.83-4.51 [facility] Basophil percentageOrdered B y: Renard Burgos on 09-12-2022 Basophils/100 WBC (Bld) 0.5 % 0-1 [facility] Eosinophils/100 WBC (Bld) 0.7 % 0-5 [facility] Neutrophils (Bld) [#/Vol] 4.7 10*3/uL 2.0-7.7 [facility] Neutrophils/100 WBC (Bld) 63.6 % 47-70 [facility] WBC (Bld) [#/Vol] 7.3 10*3/uL 4.4-11.0 [facility] Blood erythrocytes count (nu mber/volume)Ordered By: Renard Burgos on 09-12-2022 RBC (Bld) [#/Vol] 4.40 10*6/uL 4.6-6.2 [facility] Blood hemoglobin measurement (mass/volume)Ordered By: Renard Burgos on 09-12-2022 Hemoglobin (Bld) [Mass/Vol] 13.5 g/dL 13.0-16.5 [facility] Blood lymphocytes/100 leukoc ytesOrdered By: Renard Burgos on 09-12-2022 Lymphocytes/100 WBC (Bld) 28.8 % 19-41 [facility] Blood monocytes/100 leukocyt esOrdered By: Renard Burgos on 09-12-2022 Monocytes/100 WBC (Bld) 6.1 % 0-10 [facility] Blood platelet mean volumeOr dered By: Renard Burgos on 09-12-2022 Platelet mean volume (Bld) [Entitic vol] 10.7 fL 6.2-12.0 [facility] Determination of erythrocyte mean corpuscular volume (MCV)Ordered By: Renard Burgos on 09-12-2022 MCV (RBC) [Entitic vol] 91.4 fL 80-94 [facility] Hematocrit Auto (Bld) [Volum e fraction]Ordered By: Renard Burgos on 09-12-2022 Hematocrit (Bld) [Volume fraction] 40.2 % 40-54 [facility] - Hematology and Cell countsOrdered By: Renard Burgos on 09-12-2022 Erythrocyte distribution width (RBC) [Entitic vol] 41.3 fL 35.1-43.9 [facility] Erythrocyte distribution width (RBC) [Ratio] 12.5 % 11.6-14.6 [facility] Immature granulocytes/100 WBC (Bld) 0.300 % 0.0-0.9 [facility] Comment on above: IG% - Immature Granu locytes (promyelocytes, myelocytes and metamyelocytes) > 1% indicates that a LEFT SHIFT is Present. MCH (RBC) [Entitic mass] 30.7 pg 27.0-32.0 [facility] Nucleated RBC/100 WBC (Bld) [Ratio] 0 % 0-5 [facility] MCHC Auto (RBC) [Mass/Vol]Or dered By: Renard Burgos on 09-12-2022 MCHC (RBC) [Mass/Vol] 33.6 g/dL 32-36 [facility] Platelets bldOrdered By: Lyubov Burgos on 09-12-2022 Platelets (Bld) [#/Vol] 197 10*3/uL 150-450 [facility] Absolute lymphocyte countOrd ered By: Renard Burgos on 09-05-2022 Lymphocytes Auto (Unsp spec) [#/Vol] 1.94 10*3/uL 0.83-4.51 [facility] Basophil percentageOrdered B y: Renard Burgos on 09-05-2022 Basophils/100 WBC (Bld) 0.5 % 0-1 [facility] Cholesterol [Mass/Vol] 136 mg/dL <200 [facility] Comment on above: <200 mg/dL Desirable 200-240 mg/dL Borderline >240 mg/dL High Risk Eosinophils/100 WBC (Bld) 0.4 % 0-5 [facility] Neutrophils (Bld) [#/Vol] 5.4 10*3/uL 2.0-7.7 [facility] Neutrophils/100 WBC (Bld) 67.5 % 47-70 [facility] Triglyceride [Mass/Vol] 304 mg/dL <199 [facility] Comment on above: The drugs N-Acetylcy steine and Metamizole may falsely depress this assay.Serum Triglycerides Reference Interval Normal <150 mg/dL Borderline high 150 - 199 mg/dL High 200 - 499 mg/dL Very High > or = 500 mg/dL WBC (Bld) [#/Vol] 7.9 10*3/uL 4.4-11.0 [facility] Blood erythrocytes count (nu mber/volume)Ordered By: Renard Burgos on 09-05-2022 RBC (Bld) [#/Vol] 4.28 10*6/uL 4.6-6.2 [facility] Blood hemoglobin measurement (mass/volume)Ordered By: Renard Burgos on 09-05-2022 Hemoglobin (Bld) [Mass/Vol] 12.9 g/dL 13.0-16.5 [facility] Blood lymphocytes/100 leukoc ytesOrdered By: Renard Burgos on 09-05-2022 Lymphocytes/100 WBC (Bld) 24.5 % 19-41 [facility] Blood monocytes/100 leukocyt esOrdered By: Renard Burgos on 09-05-2022 Monocytes/100 WBC (Bld) 6.6 % 0-10 [facility] Blood platelet mean volumeOr dered By: Renard Burgos on 09-05-2022 Platelet mean volume (Bld) [Entitic vol] 10.7 fL 6.2-12.0 [facility] Determination of erythrocyte mean corpuscular volume (MCV)Ordered By: Renard Burgos on 09-05-2022 MCV (RBC) [Entitic vol] 91.4 fL 80-94 [facility] Hematocrit Auto (Bld) [Volum e fraction]Ordered By: Renard Burgos on 09-05-2022 Hematocrit (Bld) [Volume fraction] 39.1 % 40-54 [facility] - Hematology and Cell countsOrdered By: Renard Burgos on 09-05-2022 Erythrocyte distribution width (RBC) [Entitic vol] 41.5 fL 35.1-43.9 [facility] Erythrocyte distribution width (RBC) [Ratio] 12.6 % 11.6-14.6 [facility] Immature granulocytes/100 WBC (Bld) 0.500 % 0.0-0.9 [facility] Comment on above: IG% - Immature Granu locytes (promyelocytes, myelocytes and metamyelocytes) > 1% indicates that a LEFT SHIFT is Present. MCH (RBC) [Entitic mass] 30.1 pg 27.0-32.0 [facility] Nucleated RBC/100 WBC (Bld) [Ratio] 0 % 0-5 [facility] MCHC Auto (RBC) [Mass/Vol]Or dered By: Renard Burgos on 09-05-2022 MCHC (RBC) [Mass/Vol] 33.0 g/dL 32-36 [facility] Platelets bldOrdered By: Lyubov Burgos on 09-05-2022 Platelets (Bld) [#/Vol] 200 10*3/uL 150-450 [facility] Serum or plasma cholesterol in HDL measurement (mass/volume)Ordered By: Renard Burgos on 09-05-2022 Cholesterol in HDL [Mass/Vol] 24 mg/dL >40 [facility] Comment on above: The drugs N-Acetylcy steine and Metamizole may falsely depress this assay. Reference Range HDL <40 mg/dL Low HDL Cholesterol HDL >or= 60 mg/dL High HDL Cholesterol Serum or plasma cholesterol in VLDL measurement (mass/volume)Ordered By: Renard Burgos on 09-05-2022 Cholesterol in VLDL [Mass/Vol] 61 mg/dL 5-40 [facility] Serum or plasma low density lipoprotein (LDL) cholesterol measurement (mass/volume)Ordered By: Renard Burgos on 09-05-2022 Cholesterol in LDL [Mass/Vol] 51 mg/dL 0-130 [facility] Absolute lymphocyte countOrd ered By: Renard Burgos on 08-29-2022 Lymphocytes Auto (Unsp spec) [#/Vol] 1.91 10*3/uL 0.83-4.51 [facility] Basophil percentageOrdered B y: Renard Burgos on 08-29-2022 Basophils/100 WBC (Bld) 0.4 % 0-1 [facility] Eosinophils/100 WBC (Bld) 0.4 % 0-5 [facility] Neutrophils (Bld) [#/Vol] 4.8 10*3/uL 2.0-7.7 [facility] Neutrophils/100 WBC (Bld) 66.0 % 47-70 [facility] WBC (Bld) [#/Vol] 7.3 10*3/uL 4.4-11.0 [facility] Blood erythrocytes count (nu mber/volume)Ordered By: Renard Burgos on 08-29-2022 RBC (Bld) [#/Vol] 4.43 10*6/uL 4.6-6.2 [facility] Blood hemoglobin measurement (mass/volume)Ordered By: Renard Burgos on 08-29-2022 Hemoglobin (Bld) [Mass/Vol] 13.6 g/dL 13.0-16.5 [facility] Blood lymphocytes/100 leukoc ytesOrdered By: Renard Burgos on 08-29-2022 Lymphocytes/100 WBC (Bld) 26.2 % 19-41 [facility] Blood monocytes/100 leukocyt esOrdered By: Renard Burgos on 08-29-2022 Monocytes/100 WBC (Bld) 6.6 % 0-10 [facility] Blood platelet mean volumeOr dered By: Renard Burgos on 08-29-2022 Platelet mean volume (Bld) [Entitic vol] 11.0 fL 6.2-12.0 [facility] Determination of erythrocyte mean corpuscular volume (MCV)Ordered By: Renard Burgos on 08-29-2022 MCV (RBC) [Entitic vol] 92.1 fL 80-94 [facility] Hematocrit Auto (Bld) [Volum e fraction]Ordered By: Renard Burgos on 08-29-2022 Hematocrit (Bld) [Volume fraction] 40.8 % 40-54 [facility] - Hematology and Cell countsOrdered By: Renard Burgos on 08-29-2022 Erythrocyte distribution width (RBC) [Entitic vol] 42.0 fL 35.1-43.9 [facility] Erythrocyte distribution width (RBC) [Ratio] 12.4 % 11.6-14.6 [facility] Immature granulocytes/100 WBC (Bld) 0.400 % 0.0-0.9 [facility] Comment on above: IG% - Immature Granu locytes (promyelocytes, myelocytes and metamyelocytes) > 1% indicates that a LEFT SHIFT is Present. MCH (RBC) [Entitic mass] 30.7 pg 27.0-32.0 [facility] Nucleated RBC/100 WBC (Bld) [Ratio] 0 % 0-5 [facility] MCHC Auto (RBC) [Mass/Vol]Or dered By: Renard Burgos on 08-29-2022 MCHC (RBC) [Mass/Vol] 33.3 g/dL 32-36 [facility] Platelets bldOrdered By: Lyubov Burgos on 08-29-2022 Platelets (Bld) [#/Vol] 195 10*3/uL 150-450 [facility] Absolute lymphocyte countOrd ered By: Renard Burgos on 08-22-2022 Lymphocytes Auto (Unsp spec) [#/Vol] 1.86 10*3/uL 0.83-4.51 [facility] Basophil percentageOrdered B y: Renard Burgos on 08-22-2022 Basophils/100 WBC (Bld) 0.4 % 0-1 [facility] Eosinophils/100 WBC (Bld) 0.4 % 0-5 [facility] Neutrophils (Bld) [#/Vol] 6.5 10*3/uL 2.0-7.7 [facility] Neutrophils/100 WBC (Bld) 70.5 % 47-70 [facility] WBC (Bld) [#/Vol] 9.3 10*3/uL 4.4-11.0 [facility] Blood erythrocytes count (nu mber/volume)Ordered By: Renard Burgos on 08-22-2022 RBC (Bld) [#/Vol] 4.55 10*6/uL 4.6-6.2 [facility] Blood hemoglobin measurement (mass/volume)Ordered By: Renard Burgos on 08-22-2022 Hemoglobin (Bld) [Mass/Vol] 14.1 g/dL 13.0-16.5 [facility] Blood lymphocytes/100 leukoc ytesOrdered By: Renard Burgos on 08-22-2022 Lymphocytes/100 WBC (Bld) 20.1 % 19-41 [facility] Blood monocytes/100 leukocyt esOrdered By: Renard Burgos on 08-22-2022 Monocytes/100 WBC (Bld) 8.3 % 0-10 [facility] Blood platelet mean volumeOr dered By: Renard Burgos on 08-22-2022 Platelet mean volume (Bld) [Entitic vol] 10.8 fL 6.2-12.0 [facility] Determination of erythrocyte mean corpuscular volume (MCV)Ordered By: Renard Burgos on 08-22-2022 MCV (RBC) [Entitic vol] 91.9 fL 80-94 [facility] Hematocrit Auto (Bld) [Volum e fraction]Ordered By: Renard Burgos on 08-22-2022 Hematocrit (Bld) [Volume fraction] 41.8 % 40-54 [facility] - Hematology and Cell countsOrdered By: Renard Burgos on 08-22-2022 Erythrocyte distribution width (RBC) [Entitic vol] 42.5 fL 35.1-43.9 [facility] Erythrocyte distribution width (RBC) [Ratio] 12.6 % 11.6-14.6 [facility] Immature granulocytes/100 WBC (Bld) 0.300 % 0.0-0.9 [facility] Comment on above: IG% - Immature Granu locytes (promyelocytes, myelocytes and metamyelocytes) > 1% indicates that a LEFT SHIFT is Present. MCH (RBC) [Entitic mass] 31.0 pg 27.0-32.0 [facility] Nucleated RBC/100 WBC (Bld) [Ratio] 0 % 0-5 [facility] MCHC Auto (RBC) [Mass/Vol]Or dered By: Renard Burgos on 08-22-2022 MCHC (RBC) [Mass/Vol] 33.7 g/dL 32-36 [facility] Platelets bldOrdered By: Lyubov Burgos on 08-22-2022 Platelets (Bld) [#/Vol] 197 10*3/uL 150-450 [facility] Absolute lymphocyte countOrd ered By: Renard Burgos on 08-15-2022 Lymphocytes Auto (Unsp spec) [#/Vol] 1.88 10*3/uL 0.83-4.51 [facility] Basophil percentageOrdered B y: Renard Burgos on 08-15-2022 Basophils/100 WBC (Bld) 0.5 % 0-1 [facility] Eosinophils/100 WBC (Bld) 0.5 % 0-5 [facility] Neutrophils (Bld) [#/Vol] 5.1 10*3/uL 2.0-7.7 [facility] Neutrophils/100 WBC (Bld) 65.0 % 47-70 [facility] WBC (Bld) [#/Vol] 7.9 10*3/uL 4.4-11.0 [facility] Blood erythrocytes count (nu mber/volume)Ordered By: Renard Burgos on 08-15-2022 RBC (Bld) [#/Vol] 4.48 10*6/uL 4.6-6.2 [facility] Blood hemoglobin measurement (mass/volume)Ordered By: Renard Burgos on 08-15-2022 Hemoglobin (Bld) [Mass/Vol] 13.7 g/dL 13.0-16.5 [facility] Blood lymphocytes/100 leukoc ytesOrdered By: Renard Burgos on 08-15-2022 Lymphocytes/100 WBC (Bld) 23.9 % 19-41 [facility] Blood monocytes/100 leukocyt esOrdered By: Renard Burgos on 08-15-2022 Monocytes/100 WBC (Bld) 9.8 % 0-10 [facility] Blood platelet mean volumeOr dered By: Renard Burgos on 08-15-2022 Platelet mean volume (Bld) [Entitic vol] 10.7 fL 6.2-12.0 [facility] Determination of erythrocyte mean corpuscular volume (MCV)Ordered By: Renard Burgos on 08-15-2022 MCV (RBC) [Entitic vol] 91.1 fL 80-94 [facility] Hematocrit Auto (Bld) [Volum e fraction]Ordered By: Renard Burgos on 08-15-2022 Hematocrit (Bld) [Volume fraction] 40.8 % 40-54 [facility] - Hematology and Cell countsOrdered By: Renard Burgos on 08-15-2022 Erythrocyte distribution width (RBC) [Entitic vol] 41.0 fL 35.1-43.9 [facility] Erythrocyte distribution width (RBC) [Ratio] 12.4 % 11.6-14.6 [facility] Immature granulocytes/100 WBC (Bld) 0.300 % 0.0-0.9 [facility] Comment on above: IG% - Immature Granu locytes (promyelocytes, myelocytes and metamyelocytes) > 1% indicates that a LEFT SHIFT is Present. MCH (RBC) [Entitic mass] 30.6 pg 27.0-32.0 [facility] Nucleated RBC/100 WBC (Bld) [Ratio] 0 % 0-5 [facility] MCHC Auto (RBC) [Mass/Vol]Or dered By: Renard Burgos on 08-15-2022 MCHC (RBC) [Mass/Vol] 33.6 g/dL 32-36 [facility] Platelets bldOrdered By: Lyubov Burgos on 08-15-2022 Platelets (Bld) [#/Vol] 212 10*3/uL 150-450 [facility] Absolute lymphocyte countOrd ered By: Renard Burgos on 08-08-2022 Lymphocytes Auto (Unsp spec) [#/Vol] 1.96 10*3/uL 0.83-4.51 [facility] Basophil percentageOrdered B y: Renadr Burgos on 08-08-2022 Basophils/100 WBC (Bld) 0.5 % 0-1 [facility] Eosinophils/100 WBC (Bld) 0.5 % 0-5 [facility] Neutrophils (Bld) [#/Vol] 4.7 10*3/uL 2.0-7.7 [facility] Neutrophils/100 WBC (Bld) 64.1 % 47-70 [facility] WBC (Bld) [#/Vol] 7.4 10*3/uL 4.4-11.0 [facility] Blood erythrocytes count (nu mber/volume)Ordered By: Renard Burgos on 08-08-2022 RBC (Bld) [#/Vol] 4.44 10*6/uL 4.6-6.2 [facility] Blood hemoglobin measurement (mass/volume)Ordered By: Renard Burgos on 08-08-2022 Hemoglobin (Bld) [Mass/Vol] 13.6 g/dL 13.0-16.5 [facility] Blood lymphocytes/100 leukoc ytesOrdered By: Renard Burgos on 08-08-2022 Lymphocytes/100 WBC (Bld) 26.5 % 19-41 [facility] Blood monocytes/100 leukocyt esOrdered By: Renard Burgos on 08-08-2022 Monocytes/100 WBC (Bld) 8.1 % 0-10 [facility] Blood platelet mean volumeOr dered By: Renard Burgos on 08-08-2022 Platelet mean volume (Bld) [Entitic vol] 10.8 fL 6.2-12.0 [facility] Determination of erythrocyte mean corpuscular volume (MCV)Ordered By: Renard Burgos on 08-08-2022 MCV (RBC) [Entitic vol] 91.7 fL 80-94 [facility] Hematocrit Auto (Bld) [Volum e fraction]Ordered By: Renard Burgos on 08-08-2022 Hematocrit (Bld) [Volume fraction] 40.7 % 40-54 [facility] - Hematology and Cell countsOrdered By: Renard Burgos on 08-08-2022 Erythrocyte distribution width (RBC) [Entitic vol] 42.7 fL 35.1-43.9 [facility] Erythrocyte distribution width (RBC) [Ratio] 12.6 % 11.6-14.6 [facility] Immature granulocytes/100 WBC (Bld) 0.300 % 0.0-0.9 [facility] Comment on above: IG% - Immature Granu locytes (promyelocytes, myelocytes and metamyelocytes) > 1% indicates that a LEFT SHIFT is Present. MCH (RBC) [Entitic mass] 30.6 pg 27.0-32.0 [facility] Nucleated RBC/100 WBC (Bld) [Ratio] 0 % 0-5 [facility] MCHC Auto (RBC) [Mass/Vol]Or dered By: Renard Burgos on 08-08-2022 MCHC (RBC) [Mass/Vol] 33.4 g/dL 32-36 [facility] Platelets bldOrdered By: Lyubov Burgos on 08-08-2022 Platelets (Bld) [#/Vol] 187 10*3/uL 150-450 [facility] Absolute lymphocyte countOrd ered By: Renard Burgos on 08-01-2022 Lymphocytes Auto (Unsp spec) [#/Vol] 2.09 10*3/uL 0.83-4.51 [facility] Basophil percentageOrdered B y: Renard Burgos on 08-01-2022 Basophils/100 WBC (Bld) 0.4 % 0-1 [facility] Eosinophils/100 WBC (Bld) 0.4 % 0-5 [facility] Neutrophils (Bld) [#/Vol] 6.6 10*3/uL 2.0-7.7 [facility] Neutrophils/100 WBC (Bld) 69.1 % 47-70 [facility] WBC (Bld) [#/Vol] 9.5 10*3/uL 4.4-11.0 [facility] Blood erythrocytes count (nu mber/volume)Ordered By: Renard Burgos on 08-01-2022 RBC (Bld) [#/Vol] 4.48 10*6/uL 4.6-6.2 [facility] Blood hemoglobin measurement (mass/volume)Ordered By: Renard Burgos on 08-01-2022 Hemoglobin (Bld) [Mass/Vol] 13.9 g/dL 13.0-16.5 [facility] Blood lymphocytes/100 leukoc ytesOrdered By: Renard Burgos on 08-01-2022 Lymphocytes/100 WBC (Bld) 21.9 % 19-41 [facility] Blood monocytes/100 leukocyt esOrdered By: Renard Burgos on 08-01-2022 Monocytes/100 WBC (Bld) 7.9 % 0-10 [facility] Blood platelet mean volumeOr dered By: Renard Burgos on 08-01-2022 Platelet mean volume (Bld) [Entitic vol] 11.0 fL 6.2-12.0 [facility] Determination of erythrocyte mean corpuscular volume (MCV)Ordered By: Renard Burgos on 08-01-2022 MCV (RBC) [Entitic vol] 91.5 fL 80-94 [facility] Hematocrit Auto (Bld) [Volum e fraction]Ordered By: Renard Burgos on 08-01-2022 Hematocrit (Bld) [Volume fraction] 41.0 % 40-54 [facility] - Hematology and Cell countsOrdered By: Renard Burgos on 08-01-2022 Erythrocyte distribution width (RBC) [Entitic vol] 41.6 fL 35.1-43.9 [facility] Erythrocyte distribution width (RBC) [Ratio] 12.5 % 11.6-14.6 [facility] Immature granulocytes/100 WBC (Bld) 0.300 % 0.0-0.9 [facility] Comment on above: IG% - Immature Granu locytes (promyelocytes, myelocytes and metamyelocytes) > 1% indicates that a LEFT SHIFT is Present. MCH (RBC) [Entitic mass] 31.0 pg 27.0-32.0 [facility] Nucleated RBC/100 WBC (Bld) [Ratio] 0 % 0-5 [facility] MCHC Auto (RBC) [Mass/Vol]Or dered By: Renard Burgos on 08-01-2022 MCHC (RBC) [Mass/Vol] 33.9 g/dL 32-36 [facility] Platelets bldOrdered By: Lyubov Burgos on 08-01-2022 Platelets (Bld) [#/Vol] 208 10*3/uL 150-450 [facility] Absolute lymphocyte countOrd ered By: Renard Burgos on 07-25-2022 Lymphocytes Auto (Unsp spec) [#/Vol] 2.16 10*3/uL 0.83-4.51 [facility] Basophil percentageOrdered B y: Renard Burgos on 07-25-2022 Basophils/100 WBC (Bld) 0.6 % 0-1 [facility] Eosinophils/100 WBC (Bld) 0.6 % 0-5 [facility] Neutrophils (Bld) [#/Vol] 5.4 10*3/uL 2.0-7.7 [facility] Neutrophils/100 WBC (Bld) 64.5 % 47-70 [facility] WBC (Bld) [#/Vol] 8.4 10*3/uL 4.4-11.0 [facility] Blood erythrocytes count (nu mber/volume)Ordered By: Renard Burgos on 07-25-2022 RBC (Bld) [#/Vol] 4.45 10*6/uL 4.6-6.2 [facility] Blood hemoglobin measurement (mass/volume)Ordered By: Renard Burgos on 07-25-2022 Hemoglobin (Bld) [Mass/Vol] 13.4 g/dL 13.0-16.5 [facility] Blood lymphocytes/100 leukoc ytesOrdered By: Renard Burgos on 07-25-2022 Lymphocytes/100 WBC (Bld) 25.7 % 19-41 [facility] Blood monocytes/100 leukocyt esOrdered By: Renard Burgos on 07-25-2022 Monocytes/100 WBC (Bld) 8.4 % 0-10 [facility] Blood platelet mean volumeOr dered By: Renard Burgos on 07-25-2022 Platelet mean volume (Bld) [Entitic vol] 11.0 fL 6.2-12.0 [facility] Determination of erythrocyte mean corpuscular volume (MCV)Ordered By: Renard Burgos on 07-25-2022 MCV (RBC) [Entitic vol] 92.8 fL 80-94 [facility] Hematocrit Auto (Bld) [Volum e fraction]Ordered By: Renard Burgos on 07-25-2022 Hematocrit (Bld) [Volume fraction] 41.3 % 40-54 [facility] - Hematology and Cell countsOrdered By: Renard Burgos on 07-25-2022 Erythrocyte distribution width (RBC) [Entitic vol] 42.5 fL 35.1-43.9 [facility] Erythrocyte distribution width (RBC) [Ratio] 12.5 % 11.6-14.6 [facility] Immature granulocytes/100 WBC (Bld) 0.200 % 0.0-0.9 [facility] Comment on above: IG% - Immature Granu locytes (promyelocytes, myelocytes and metamyelocytes) > 1% indicates that a LEFT SHIFT is Present. MCH (RBC) [Entitic mass] 30.1 pg 27.0-32.0 [facility] Nucleated RBC/100 WBC (Bld) [Ratio] 0 % 0-5 [facility] MCHC Auto (RBC) [Mass/Vol]Or dered By: Renard Burgos on 07-25-2022 MCHC (RBC) [Mass/Vol] 32.4 g/dL 32-36 [facility] Platelets bldOrdered By: Lyubov Burgos on 07-25-2022 Platelets (Bld) [#/Vol] 200 10*3/uL 150-450 [facility] No Panel InformationOrdered By: Renard Burgos on 07-19-2022 Vitamin D 25-Hydroxy 34.2 ng/mL [facility] Comment on above: Vitamin D 25(OH) Sta tus Range Deficiency <20 ng/mL (50nmol/L) Insufficiency 20 - 30 ng/mL (50 - 75 nmol/L) Sufficiency 30 - 100 ng/mL (75 - 250 nmol/L) Toxicity >100 ng/mL (>250 nmol/L) Absolute lymphocyte countOrd ered By: Renard Burgos on 07-18-2022 Lymphocytes Auto (Unsp spec) [#/Vol] 2.48 10*3/uL 0.83-4.51 [facility] Basophil percentageOrdered B y: Renard Burgos on 07-18-2022 Basophils/100 WBC (Bld) 0.5 % 0-1 [facility] Eosinophils/100 WBC (Bld) 0.6 % 0-5 [facility] Neutrophils (Bld) [#/Vol] 5.9 10*3/uL 2.0-7.7 [facility] Neutrophils/100 WBC (Bld) 61.6 % 47-70 [facility] WBC (Bld) [#/Vol] 9.6 10*3/uL 4.4-11.0 [facility] Blood erythrocytes count (nu mber/volume)Ordered By: Renard Burgos on 07-18-2022 RBC (Bld) [#/Vol] 4.56 10*6/uL 4.6-6.2 [facility] Blood hemoglobin measurement (mass/volume)Ordered By: Renard Burgos on 07-18-2022 Hemoglobin (Bld) [Mass/Vol] 13.9 g/dL 13.0-16.5 [facility] Blood lymphocytes/100 leukoc ytesOrdered By: Renard Burgos on 07-18-2022 Lymphocytes/100 WBC (Bld) 25.9 % 19-41 [facility] Blood monocytes/100 leukocyt esOrdered By: Renard Burgos on 07-18-2022 Monocytes/100 WBC (Bld) 11.0 % 0-10 [facility] Blood platelet mean volumeOr dered By: Renard Burgos on 07-18-2022 Platelet mean volume (Bld) [Entitic vol] 11.3 fL 6.2-12.0 [facility] Determination of erythrocyte mean corpuscular volume (MCV)Ordered By: Renard Burgos on 07-18-2022 MCV (RBC) [Entitic vol] 93.9 fL 80-94 [facility] Hematocrit Auto (Bld) [Volum e fraction]Ordered By: Renard Burgos on 07-18-2022 Hematocrit (Bld) [Volume fraction] 42.8 % 40-54 [facility] - Hematology and Cell countsOrdered By: Renard Burgos on 07-18-2022 Erythrocyte distribution width (RBC) [Entitic vol] 44.0 fL 35.1-43.9 [facility] Erythrocyte distribution width (RBC) [Ratio] 12.8 % 11.6-14.6 [facility] Immature granulocytes/100 WBC (Bld) 0.400 % 0.0-0.9 [facility] Comment on above: IG% - Immature Granu locytes (promyelocytes, myelocytes and metamyelocytes) > 1% indicates that a LEFT SHIFT is Present. MCH (RBC) [Entitic mass] 30.5 pg 27.0-32.0 [facility] Nucleated RBC/100 WBC (Bld) [Ratio] 0 % 0-5 [facility] MCHC Auto (RBC) [Mass/Vol]Or dered By: Renard Burgos on 07-18-2022 MCHC (RBC) [Mass/Vol] 32.5 g/dL 32-36 [facility] Platelets bldOrdered By: Lyubov Burgos on 07-18-2022 Platelets (Bld) [#/Vol] 207 10*3/uL 150-450 [facility] Absolute lymphocyte countOrd ered By: Renard Burgos on 07-11-2022 Lymphocytes Auto (Unsp spec) [#/Vol] 2.37 10*3/uL 0.83-4.51 [facility] Basophil percentageOrdered B y: Renard Burgos on 07-11-2022 Basophils/100 WBC (Bld) 0.6 % 0-1 [facility] Eosinophils/100 WBC (Bld) 0.5 % 0-5 [facility] Neutrophils (Bld) [#/Vol] 5.3 10*3/uL 2.0-7.7 [facility] Neutrophils/100 WBC (Bld) 61.8 % 47-70 [facility] WBC (Bld) [#/Vol] 8.5 10*3/uL 4.4-11.0 [facility] Blood erythrocytes count (nu mber/volume)Ordered By: Renard Burgos on 07-11-2022 RBC (Bld) [#/Vol] 4.83 10*6/uL 4.6-6.2 [facility] Blood hemoglobin measurement (mass/volume)Ordered By: Renard Burgos on 07-11-2022 Hemoglobin (Bld) [Mass/Vol] 14.7 g/dL 13.0-16.5 [facility] Blood lymphocytes/100 leukoc ytesOrdered By: Renard Burgos on 07-11-2022 Lymphocytes/100 WBC (Bld) 27.8 % 19-41 [facility] Blood monocytes/100 leukocyt esOrdered By: Renard Burgos on 07-11-2022 Monocytes/100 WBC (Bld) 8.8 % 0-10 [facility] Blood platelet mean volumeOr dered By: Renard Burgos on 07-11-2022 Platelet mean volume (Bld) [Entitic vol] 10.6 fL 6.2-12.0 [facility] Determination of erythrocyte mean corpuscular volume (MCV)Ordered By: Renard Burgos on 07-11-2022 MCV (RBC) [Entitic vol] 90.7 fL 80-94 [facility] Hematocrit Auto (Bld) [Volum e fraction]Ordered By: Renard Burgos on 07-11-2022 Hematocrit (Bld) [Volume fraction] 43.8 % 40-54 [facility] - Hematology and Cell countsOrdered By: Renard Burgos on 07-11-2022 Erythrocyte distribution width (RBC) [Entitic vol] 41.2 fL 35.1-43.9 [facility] Erythrocyte distribution width (RBC) [Ratio] 12.7 % 11.6-14.6 [facility] Immature granulocytes/100 WBC (Bld) 0.500 % 0.0-0.9 [facility] Comment on above: IG% - Immature Granu locytes (promyelocytes, myelocytes and metamyelocytes) > 1% indicates that a LEFT SHIFT is Present. MCH (RBC) [Entitic mass] 30.4 pg 27.0-32.0 [facility] Nucleated RBC/100 WBC (Bld) [Ratio] 0 % 0-5 [facility] MCHC Auto (RBC) [Mass/Vol]Or dered By: Renard Burgos on 07-11-2022 MCHC (RBC) [Mass/Vol] 33.6 g/dL 32-36 [facility] Platelets bldOrdered By: Lyubov Burgos on 07-11-2022 Platelets (Bld) [#/Vol] 207 10*3/uL 150-450 [facility] Absolute lymphocyte countOrd ered By: Renard Burgos on 07-04-2022 Lymphocytes Auto (Unsp spec) [#/Vol] 1.87 10*3/uL 0.83-4.51 [facility] Basophil percentageOrdered B y: Renard Burgos on 07-04-2022 Basophils/100 WBC (Bld) 0.4 % 0-1 [facility] Eosinophils/100 WBC (Bld) 0.5 % 0-5 [facility] Neutrophils (Bld) [#/Vol] 7.5 10*3/uL 2.0-7.7 [facility] Neutrophils/100 WBC (Bld) 72.8 % 47-70 [facility] WBC (Bld) [#/Vol] 10.3 10*3/uL 4.4-11.0 [facility] Blood erythrocytes count (nu mber/volume)Ordered By: Renard Burgos on 07-04-2022 RBC (Bld) [#/Vol] 4.45 10*6/uL 4.6-6.2 [facility] Blood hemoglobin measurement (mass/volume)Ordered By: Renard Burgos on 07-04-2022 Hemoglobin (Bld) [Mass/Vol] 13.5 g/dL 13.0-16.5 [facility] Blood lymphocytes/100 leukoc ytesOrdered By: Renard Burgos on 07-04-2022 Lymphocytes/100 WBC (Bld) 18.1 % 19-41 [facility] Blood monocytes/100 leukocyt esOrdered By: Renard Burgos on 07-04-2022 Monocytes/100 WBC (Bld) 7.7 % 0-10 [facility] Blood platelet mean volumeOr dered By: Renard Burgos on 07-04-2022 Platelet mean volume (Bld) [Entitic vol] 11.3 fL 6.2-12.0 [facility] Determination of erythrocyte mean corpuscular volume (MCV)Ordered By: Renard Burgos on 07-04-2022 MCV (RBC) [Entitic vol] 93.0 fL 80-94 [facility] Hematocrit Auto (Bld) [Volum e fraction]Ordered By: Renard Burgos on 07-04-2022 Hematocrit (Bld) [Volume fraction] 41.4 % 40-54 [facility] - Hematology and Cell countsOrdered By: Renard Burgos on 07-04-2022 Erythrocyte distribution width (RBC) [Entitic vol] 43.0 fL 35.1-43.9 [facility] Erythrocyte distribution width (RBC) [Ratio] 12.5 % 11.6-14.6 [facility] Immature granulocytes/100 WBC (Bld) 0.500 % 0.0-0.9 [facility] Comment on above: IG% - Immature Granu locytes (promyelocytes, myelocytes and metamyelocytes) > 1% indicates that a LEFT SHIFT is Present. MCH (RBC) [Entitic mass] 30.3 pg 27.0-32.0 [facility] Nucleated RBC/100 WBC (Bld) [Ratio] 0 % 0-5 [facility] MCHC Auto (RBC) [Mass/Vol]Or dered By: Renard Burgos on 07-04-2022 MCHC (RBC) [Mass/Vol] 32.6 g/dL 32-36 [facility] Platelets bldOrdered By: Lyubov Burgos on 07-04-2022 Platelets (Bld) [#/Vol] 211 10*3/uL 150-450 [facility] Absolute lymphocyte countOrd ered By: Renard Burgos on 06-27-2022 Lymphocytes Auto (Unsp spec) [#/Vol] 1.83 10*3/uL 0.83-4.51 [facility] Basophil percentageOrdered B y: Renard Burgos on 06-27-2022 Basophils/100 WBC (Bld) 0.4 % 0-1 [facility] Eosinophils/100 WBC (Bld) 0.5 % 0-5 [facility] Neutrophils (Bld) [#/Vol] 5.0 10*3/uL 2.0-7.7 [facility] Neutrophils/100 WBC (Bld) 67.6 % 47-70 [facility] WBC (Bld) [#/Vol] 7.4 10*3/uL 4.4-11.0 [facility] Blood erythrocytes count (nu mber/volume)Ordered By: Renard Burgos on 06-27-2022 RBC (Bld) [#/Vol] 4.52 10*6/uL 4.6-6.2 [facility] Blood hemoglobin measurement (mass/volume)Ordered By: Renard Burgos on 06-27-2022 Hemoglobin (Bld) [Mass/Vol] 13.9 g/dL 13.0-16.5 [facility] Blood lymphocytes/100 leukoc ytesOrdered By: Renard Burgos on 06-27-2022 Lymphocytes/100 WBC (Bld) 24.7 % 19-41 [facility] Blood monocytes/100 leukocyt esOrdered By: Renard Burgos on 06-27-2022 Monocytes/100 WBC (Bld) 6.4 % 0-10 [facility] Blood platelet mean volumeOr dered By: Renard Burgos on 06-27-2022 Platelet mean volume (Bld) [Entitic vol] 10.7 fL 6.2-12.0 [facility] Determination of erythrocyte mean corpuscular volume (MCV)Ordered By: Renard Burgos on 06-27-2022 MCV (RBC) [Entitic vol] 91.2 fL 80-94 [facility] Hematocrit Auto (Bld) [Volum e fraction]Ordered By: Renard Burgos on 06-27-2022 Hematocrit (Bld) [Volume fraction] 41.2 % 40-54 [facility] - Hematology and Cell countsOrdered By: Renard Burgos on 06-27-2022 Erythrocyte distribution width (RBC) [Entitic vol] 41.9 fL 35.1-43.9 [facility] Erythrocyte distribution width (RBC) [Ratio] 12.7 % 11.6-14.6 [facility] Immature granulocytes/100 WBC (Bld) 0.400 % 0.0-0.9 [facility] Comment on above: IG% - Immature Granu locytes (promyelocytes, myelocytes and metamyelocytes) > 1% indicates that a LEFT SHIFT is Present. MCH (RBC) [Entitic mass] 30.8 pg 27.0-32.0 [facility] Nucleated RBC/100 WBC (Bld) [Ratio] 0 % 0-5 [facility] MCHC Auto (RBC) [Mass/Vol]Or dered By: Renard Burgos on 06-27-2022 MCHC (RBC) [Mass/Vol] 33.7 g/dL 32-36 [facility] Platelets bldOrdered By: Lyubov Burgos on 06-27-2022 Platelets (Bld) [#/Vol] 200 10*3/uL 150-450 [facility] Absolute lymphocyte countOrd ered By: Renard Burgos on 06-20-2022 Lymphocytes Auto (Unsp spec) [#/Vol] 1.57 10*3/uL 0.83-4.51 [facility] Basophil percentageOrdered B y: Renard Burgos on 06-20-2022 Basophils/100 WBC (Bld) 0.2 % 0-1 [facility] Eosinophils/100 WBC (Bld) 0.2 % 0-5 [facility] Neutrophils (Bld) [#/Vol] 6.5 10*3/uL 2.0-7.7 [facility] Neutrophils/100 WBC (Bld) 74.5 % 47-70 [facility] WBC (Bld) [#/Vol] 8.8 10*3/uL 4.4-11.0 [facility] Blood erythrocytes count (nu mber/volume)Ordered By: Renard Burgos on 06-20-2022 RBC (Bld) [#/Vol] 4.79 10*6/uL 4.6-6.2 [facility] Blood hemoglobin measurement (mass/volume)Ordered By: Renard Burgos on 06-20-2022 Hemoglobin (Bld) [Mass/Vol] 14.6 g/dL 13.0-16.5 [facility] Blood lymphocytes/100 leukoc ytesOrdered By: Renard Burgos on 06-20-2022 Lymphocytes/100 WBC (Bld) 17.8 % 19-41 [facility] Blood monocytes/100 leukocyt esOrdered By: Renard Burgos on 06-20-2022 Monocytes/100 WBC (Bld) 7.0 % 0-10 [facility] Blood platelet mean volumeOr dered By: Renard Burgos on 06-20-2022 Platelet mean volume (Bld) [Entitic vol] 11.1 fL 6.2-12.0 [facility] Determination of erythrocyte mean corpuscular volume (MCV)Ordered By: Renard Burgos on 06-20-2022 MCV (RBC) [Entitic vol] 92.1 fL 80-94 [facility] Hematocrit Auto (Bld) [Volum e fraction]Ordered By: Renard Burgos on 06-20-2022 Hematocrit (Bld) [Volume fraction] 44.1 % 40-54 [facility] - Hematology and Cell countsOrdered By: Renard Burgos on 06-20-2022 Erythrocyte distribution width (RBC) [Entitic vol] 42.4 fL 35.1-43.9 [facility] Erythrocyte distribution width (RBC) [Ratio] 12.6 % 11.6-14.6 [facility] Immature granulocytes/100 WBC (Bld) 0.300 % 0.0-0.9 [facility] Comment on above: IG% - Immature Granu locytes (promyelocytes, myelocytes and metamyelocytes) > 1% indicates that a LEFT SHIFT is Present. MCH (RBC) [Entitic mass] 30.5 pg 27.0-32.0 [facility] Nucleated RBC/100 WBC (Bld) [Ratio] 0 % 0-5 [facility] MCHC Auto (RBC) [Mass/Vol]Or dered By: Renard Burgos on 06-20-2022 MCHC (RBC) [Mass/Vol] 33.1 g/dL 32-36 [facility] Platelets bldOrdered By: Lyubov Burgos on 06-20-2022 Platelets (Bld) [#/Vol] 207 10*3/uL 150-450 [facility] Absolute lymphocyte countOrd ered By: Renard Burgos on 06-13-2022 Lymphocytes Auto (Unsp spec) [#/Vol] 2.28 10*3/uL 0.83-4.51 [facility] Basophil percentageOrdered B y: Renard Burgos on 06-13-2022 Basophils/100 WBC (Bld) 0.5 % 0-1 [facility] Eosinophils/100 WBC (Bld) 0.4 % 0-5 [facility] Neutrophils (Bld) [#/Vol] 6.0 10*3/uL 2.0-7.7 [facility] Neutrophils/100 WBC (Bld) 65.6 % 47-70 [facility] WBC (Bld) [#/Vol] 9.2 10*3/uL 4.4-11.0 [facility] Blood erythrocytes count (nu mber/volume)Ordered By: Renard Burgos on 06-13-2022 RBC (Bld) [#/Vol] 4.55 10*6/uL 4.6-6.2 [facility] Blood hemoglobin measurement (mass/volume)Ordered By: Renard Burgos on 06-13-2022 Hemoglobin (Bld) [Mass/Vol] 13.7 g/dL 13.0-16.5 [facility] Blood lymphocytes/100 leukoc ytesOrdered By: Renard Burgos on 06-13-2022 Lymphocytes/100 WBC (Bld) 24.9 % 19-41 [facility] Blood monocytes/100 leukocyt esOrdered By: Renard Burgos on 06-13-2022 Monocytes/100 WBC (Bld) 8.2 % 0-10 [facility] Blood platelet mean volumeOr dered By: Renard Burgos on 06-13-2022 Platelet mean volume (Bld) [Entitic vol] 10.9 fL 6.2-12.0 [facility] Determination of erythrocyte mean corpuscular volume (MCV)Ordered By: Renard Burgos on 06-13-2022 MCV (RBC) [Entitic vol] 92.3 fL 80-94 [facility] Hematocrit Auto (Bld) [Volum e fraction]Ordered By: Renard Burgos on 06-13-2022 Hematocrit (Bld) [Volume fraction] 42.0 % 40-54 [facility] - Hematology and Cell countsOrdered By: Renard Burgos on 06-13-2022 Erythrocyte distribution width (RBC) [Entitic vol] 43.2 fL 35.1-43.9 [facility] Erythrocyte distribution width (RBC) [Ratio] 12.8 % 11.6-14.6 [facility] Immature granulocytes/100 WBC (Bld) 0.400 % 0.0-0.9 [facility] Comment on above: IG% - Immature Granu locytes (promyelocytes, myelocytes and metamyelocytes) > 1% indicates that a LEFT SHIFT is Present. MCH (RBC) [Entitic mass] 30.1 pg 27.0-32.0 [facility] Nucleated RBC/100 WBC (Bld) [Ratio] 0 % 0-5 [facility] MCHC Auto (RBC) [Mass/Vol]Or dered By: Renard Burgos on 06-13-2022 MCHC (RBC) [Mass/Vol] 32.6 g/dL 32-36 [facility] Platelets bldOrdered By: Lyubov Burgos on 06-13-2022 Platelets (Bld) [#/Vol] 203 10*3/uL 150-450 [facility] Absolute lymphocyte countOrd ered By: Renard Burgos on 06-06-2022 Lymphocytes Auto (Unsp spec) [#/Vol] 2.02 10*3/uL 0.83-4.51 [facility] Basophil percentageOrdered B y: Renard Burgos on 06-06-2022 Basophils/100 WBC (Bld) 0.5 % 0-1 [facility] Eosinophils/100 WBC (Bld) 0.7 % 0-5 [facility] Neutrophils (Bld) [#/Vol] 4.7 10*3/uL 2.0-7.7 [facility] Neutrophils/100 WBC (Bld) 63.3 % 47-70 [facility] WBC (Bld) [#/Vol] 7.4 10*3/uL 4.4-11.0 [facility] Blood erythrocytes count (nu mber/volume)Ordered By: Renard Burgos on 06-06-2022 RBC (Bld) [#/Vol] 4.57 10*6/uL 4.6-6.2 [facility] Blood hemoglobin measurement (mass/volume)Ordered By: Renard Burgos on 06-06-2022 Hemoglobin (Bld) [Mass/Vol] 14.0 g/dL 13.0-16.5 [facility] Blood lymphocytes/100 leukoc ytesOrdered By: Renard Burgos on 06-06-2022 Lymphocytes/100 WBC (Bld) 27.2 % 19-41 [facility] Blood monocytes/100 leukocyt esOrdered By: Renard Burgos on 06-06-2022 Monocytes/100 WBC (Bld) 7.9 % 0-10 [facility] Blood platelet mean volumeOr dered By: Renard Burgos on 06-06-2022 Platelet mean volume (Bld) [Entitic vol] 10.7 fL 6.2-12.0 [facility] Determination of erythrocyte mean corpuscular volume (MCV)Ordered By: Renard Burgos on 06-06-2022 MCV (RBC) [Entitic vol] 90.2 fL 80-94 [facility] Hematocrit Auto (Bld) [Volum e fraction]Ordered By: Renard Burgos on 06-06-2022 Hematocrit (Bld) [Volume fraction] 41.2 % 40-54 [facility] - Hematology and Cell countsOrdered By: Renard Burgos on 06-06-2022 Erythrocyte distribution width (RBC) [Entitic vol] 41.5 fL 35.1-43.9 [facility] Erythrocyte distribution width (RBC) [Ratio] 12.7 % 11.6-14.6 [facility] Immature granulocytes/100 WBC (Bld) 0.400 % 0.0-0.9 [facility] Comment on above: IG% - Immature Granu locytes (promyelocytes, myelocytes and metamyelocytes) > 1% indicates that a LEFT SHIFT is Present. MCH (RBC) [Entitic mass] 30.6 pg 27.0-32.0 [facility] Nucleated RBC/100 WBC (Bld) [Ratio] 0 % 0-5 [facility] MCHC Auto (RBC) [Mass/Vol]Or dered By: Renard Burgos on 06-06-2022 MCHC (RBC) [Mass/Vol] 34.0 g/dL 32-36 [facility] Platelets bldOrdered By: Lyubov Burgos on 06-06-2022 Platelets (Bld) [#/Vol] 197 10*3/uL 150-450 [facility] Absolute lymphocyte countOrd ered By: Renard Burgos on 05-30-2022 Lymphocytes Auto (Unsp spec) [#/Vol] 2.32 10*3/uL 0.83-4.51 [facility] Basophil percentageOrdered B y: Renard Burgos on 05-30-2022 Basophils/100 WBC (Bld) 0.4 % 0-1 [facility] Eosinophils/100 WBC (Bld) 0.5 % 0-5 [facility] Neutrophils (Bld) [#/Vol] 5.2 10*3/uL 2.0-7.7 [facility] Neutrophils/100 WBC (Bld) 62.6 % 47-70 [facility] WBC (Bld) [#/Vol] 8.3 10*3/uL 4.4-11.0 [facility] Blood erythrocytes count (nu mber/volume)Ordered By: Renard Burgos on 05-30-2022 RBC (Bld) [#/Vol] 4.87 10*6/uL 4.6-6.2 [facility] Blood hemoglobin measurement (mass/volume)Ordered By: Renard Burgos on 05-30-2022 Hemoglobin (Bld) [Mass/Vol] 14.6 g/dL 13.0-16.5 [facility] Blood lymphocytes/100 leukoc ytesOrdered By: Renard Burgos on 05-30-2022 Lymphocytes/100 WBC (Bld) 27.9 % 19-41 [facility] Blood monocytes/100 leukocyt esOrdered By: Renard Burgos on 05-30-2022 Monocytes/100 WBC (Bld) 8.0 % 0-10 [facility] Blood platelet mean volumeOr dered By: Renard Burgos on 05-30-2022 Platelet mean volume (Bld) [Entitic vol] 10.9 fL 6.2-12.0 [facility] Determination of erythrocyte mean corpuscular volume (MCV)Ordered By: Renard Burgos on 05-30-2022 MCV (RBC) [Entitic vol] 91.6 fL 80-94 [facility] Hematocrit Auto (Bld) [Volum e fraction]Ordered By: Renard Burgos on 05-30-2022 Hematocrit (Bld) [Volume fraction] 44.6 % 40-54 [facility] - Hematology and Cell countsOrdered By: Renard Burgos on 05-30-2022 Erythrocyte distribution width (RBC) [Entitic vol] 42.4 fL 35.1-43.9 [facility] Erythrocyte distribution width (RBC) [Ratio] 12.6 % 11.6-14.6 [facility] Immature granulocytes/100 WBC (Bld) 0.600 % 0.0-0.9 [facility] Comment on above: IG% - Immature Granu locytes (promyelocytes, myelocytes and metamyelocytes) > 1% indicates that a LEFT SHIFT is Present. MCH (RBC) [Entitic mass] 30.0 pg 27.0-32.0 [facility] Nucleated RBC/100 WBC (Bld) [Ratio] 0 % 0-5 [facility] MCHC Auto (RBC) [Mass/Vol]Or dered By: Renard Burgos on 05-30-2022 MCHC (RBC) [Mass/Vol] 32.7 g/dL 32-36 [facility] Platelets bldOrdered By: Lyubov Burgos on 05-30-2022 Platelets (Bld) [#/Vol] 213 10*3/uL 150-450 [facility] Absolute lymphocyte countOrd ered By: Renard Burgos on 05-23-2022 Lymphocytes Auto (Unsp spec) [#/Vol] 2.07 10*3/uL 0.83-4.51 [facility] Basophil percentageOrdered B y: Renard Burgos on 05-23-2022 Basophils/100 WBC (Bld) 0.5 % 0-1 [facility] Eosinophils/100 WBC (Bld) 0.4 % 0-5 [facility] Neutrophils (Bld) [#/Vol] 5.7 10*3/uL 2.0-7.7 [facility] Neutrophils/100 WBC (Bld) 66.5 % 47-70 [facility] WBC (Bld) [#/Vol] 8.5 10*3/uL 4.4-11.0 [facility] Blood erythrocytes count (nu mber/volume)Ordered By: Renard Burgos on 05-23-2022 RBC (Bld) [#/Vol] 4.75 10*6/uL 4.6-6.2 [facility] Blood hemoglobin measurement (mass/volume)Ordered By: Renard Burgos on 05-23-2022 Hemoglobin (Bld) [Mass/Vol] 14.3 g/dL 13.0-16.5 [facility] Blood lymphocytes/100 leukoc ytesOrdered By: Renard Burgos on 05-23-2022 Lymphocytes/100 WBC (Bld) 24.4 % 19-41 [facility] Blood monocytes/100 leukocyt esOrdered By: Renard Burgos on 05-23-2022 Monocytes/100 WBC (Bld) 7.7 % 0-10 [facility] Blood platelet mean volumeOr dered By: Renard Burgos on 05-23-2022 Platelet mean volume (Bld) [Entitic vol] 11.1 fL 6.2-12.0 [facility] Determination of erythrocyte mean corpuscular volume (MCV)Ordered By: Renard Burgos on 05-23-2022 MCV (RBC) [Entitic vol] 90.9 fL 80-94 [facility] Hematocrit Auto (Bld) [Volum e fraction]Ordered By: Renard Burgos on 05-23-2022 Hematocrit (Bld) [Volume fraction] 43.2 % 40-54 [facility] - Hematology and Cell countsOrdered By: Renard Burgos on 05-23-2022 Erythrocyte distribution width (RBC) [Entitic vol] 41.7 fL 35.1-43.9 [facility] Erythrocyte distribution width (RBC) [Ratio] 12.5 % 11.6-14.6 [facility] Immature granulocytes/100 WBC (Bld) 0.500 % 0.0-0.9 [facility] Comment on above: IG% - Immature Granu locytes (promyelocytes, myelocytes and metamyelocytes) > 1% indicates that a LEFT SHIFT is Present. MCH (RBC) [Entitic mass] 30.1 pg 27.0-32.0 [facility] Nucleated RBC/100 WBC (Bld) [Ratio] 0 % 0-5 [facility] MCHC Auto (RBC) [Mass/Vol]Or dered By: Renard Burgos on 05-23-2022 MCHC (RBC) [Mass/Vol] 33.1 g/dL 32-36 [facility] Platelets bldOrdered By: Lyubov Burgos on 05-23-2022 Platelets (Bld) [#/Vol] 213 10*3/uL 150-450 [facility] No Panel Informationon 05-20 Dejah Hazel DO 05/20/2022 7:32 PM Feeding Tube Replacement Performed by: Dejah Hazel DO Authorized by: Abelardo Rios DO Consent: Consent obtained: Verbal Consent given by: Patient [place] protocol: Patient identity confirmed: Verbally with patient [...] Procedure completion: Tolerated well, no immediate complications [facility] XR Abdomen Single viewon G-tube position is within the stomach. No evidence of contrast extravasation. Report Dictated on Electronically Signed By: Jason Tran Electronically Signed Date/Time: 05/20/2022 7:38 PM [facility] Patient Name: KATHYA HOOPER Exam Date/Time: 05/20/2022 19:18 Procedure: XR ABDOMEN 1 VIEW Ordering Provider: RIOS TYLER Reason For Exam: SUPINE ABDOMEN (KUB) CLINICAL INDICATION: confirm placement of G tube A supine plain film of the abdomen was obtained. Repeat abdominal radiographs following hand injection of enteric contrast via the patient's enteric tube. (Gastrografin 30 mL). COMPARISON: None FINDINGS: On the restaurant busser image, no dilated bowel loops are identified. Feeding tube overlies the epigastric region of the abdomen. On the postcontrast images, there is a small amount of enteric contrast in the stomach and contrast is present throughout the proximal duodenum. No extravasated contrast is evident. [facility] Jason Tran M D - [...] 30 mL). COMPARISON: None FINDINGS: On the restaurant busser image, no dilated bowel loops are identified. [...] Electronically Signed Date/Time: 05/20/2022 7:38 PM EST [facility] Study observation (narrative) [facility] XR Abdomen Single viewOrdere d By: Jason Tran on 05-20-2022 [employer] Work Phone: Absolute lymphocyte countOrd ered By: Renard Burgos on 05-16-2022 Lymphocytes Auto (Unsp spec) [#/Vol] 2.06 10*3/uL 0.83-4.51 [facility] Basophil percentageOrdered B y: Renard Burgos on 05-16-2022 Basophils/100 WBC (Bld) 0.6 % 0-1 [facility] Eosinophils/100 WBC (Bld) 0.6 % 0-5 [facility] Neutrophils (Bld) [#/Vol] 4.4 10*3/uL 2.0-7.7 [facility] Neutrophils/100 WBC (Bld) 61.2 % 47-70 [facility] WBC (Bld) [#/Vol] 7.1 10*3/uL 4.4-11.0 [facility] Blood erythrocytes count (nu mber/volume)Ordered By: Renard Burgos on 05-16-2022 RBC (Bld) [#/Vol] 4.58 10*6/uL 4.6-6.2 [facility] Blood hemoglobin measurement (mass/volume)Ordered By: Renard Burgos on 05-16-2022 Hemoglobin (Bld) [Mass/Vol] 13.9 g/dL 13.0-16.5 [facility] Blood lymphocytes/100 leukoc ytesOrdered By: Renard Burgos on 05-16-2022 Lymphocytes/100 WBC (Bld) 29.0 % 19-41 [facility] Blood monocytes/100 leukocyt esOrdered By: Renard Burgos on 05-16-2022 Monocytes/100 WBC (Bld) 8.2 % 0-10 [facility] Blood platelet mean volumeOr dered By: Renard Burgos on 05-16-2022 Platelet mean volume (Bld) [Entitic vol] 11.1 fL 6.2-12.0 [facility] Determination of erythrocyte mean corpuscular volume (MCV)Ordered By: Renard Burgos on 05-16-2022 MCV (RBC) [Entitic vol] 91.5 fL 80-94 [facility] Hematocrit Auto (Bld) [Volum e fraction]Ordered By: Renard Burgos on 05-16-2022 Hematocrit (Bld) [Volume fraction] 41.9 % 40-54 [facility] - Hematology and Cell countsOrdered By: Renard Burgos on 05-16-2022 Erythrocyte distribution width (RBC) [Entitic vol] 41.3 fL 35.1-43.9 [facility] Erythrocyte distribution width (RBC) [Ratio] 12.5 % 11.6-14.6 [facility] Immature granulocytes/100 WBC (Bld) 0.400 % 0.0-0.9 [facility] Comment on above: IG% - Immature Granu locytes (promyelocytes, myelocytes and metamyelocytes) > 1% indicates that a LEFT SHIFT is Present. MCH (RBC) [Entitic mass] 30.3 pg 27.0-32.0 [facility] Nucleated RBC/100 WBC (Bld) [Ratio] 0 % 0-5 [facility] MCHC Auto (RBC) [Mass/Vol]Or dered By: Renard Burgos on 05-16-2022 MCHC (RBC) [Mass/Vol] 33.2 g/dL 32-36 [facility] Platelets bldOrdered By: Lyubov Burgos on 05-16-2022 Platelets (Bld) [#/Vol] 205 10*3/uL 150-450 [facility] Absolute lymphocyte countOrd ered By: Renard Burgos on 05-09-2022 Lymphocytes Auto (Unsp spec) [#/Vol] 1.92 10*3/uL 0.83-4.51 [facility] Basophil percentageOrdered B y: Renard Burgos on 05-09-2022 Basophils/100 WBC (Bld) 0.7 % 0-1 [facility] Eosinophils/100 WBC (Bld) 0.7 % 0-5 [facility] Neutrophils (Bld) [#/Vol] 4.3 10*3/uL 2.0-7.7 [facility] Neutrophils/100 WBC (Bld) 60.9 % 47-70 [facility] WBC (Bld) [#/Vol] 7.1 10*3/uL 4.4-11.0 [facility] Blood erythrocytes count (nu mber/volume)Ordered By: Renard Burgos on 05-09-2022 RBC (Bld) [#/Vol] 4.67 10*6/uL 4.6-6.2 [facility] Blood hemoglobin measurement (mass/volume)Ordered By: Renard Burgos on 05-09-2022 Hemoglobin (Bld) [Mass/Vol] 14.1 g/dL 13.0-16.5 [facility] Blood lymphocytes/100 leukoc ytesOrdered By: Renard Burgos on 05-09-2022 Lymphocytes/100 WBC (Bld) 27.2 % 19-41 [facility] Blood monocytes/100 leukocyt esOrdered By: Renard Burgos on 05-09-2022 Monocytes/100 WBC (Bld) 10.2 % 0-10 [facility] Blood platelet mean volumeOr dered By: Renard Burgos on 05-09-2022 Platelet mean volume (Bld) [Entitic vol] 11.5 fL 6.2-12.0 [facility] Determination of erythrocyte mean corpuscular volume (MCV)Ordered By: Renard Burgos on 05-09-2022 MCV (RBC) [Entitic vol] 91.0 fL 80-94 [facility] Hematocrit Auto (Bld) [Volum e fraction]Ordered By: Renard Burgos on 05-09-2022 Hematocrit (Bld) [Volume fraction] 42.5 % 40-54 [facility] - Hematology and Cell countsOrdered By: Renard Burgos on 05-09-2022 Erythrocyte distribution width (RBC) [Entitic vol] 41.4 fL 35.1-43.9 [facility] Erythrocyte distribution width (RBC) [Ratio] 12.7 % 11.6-14.6 [facility] Immature granulocytes/100 WBC (Bld) 0.300 % 0.0-0.9 [facility] Comment on above: IG% - Immature Granu locytes (promyelocytes, myelocytes and metamyelocytes) > 1% indicates that a LEFT SHIFT is Present. MCH (RBC) [Entitic mass] 30.2 pg 27.0-32.0 [facility] Nucleated RBC/100 WBC (Bld) [Ratio] 0.4 % 0-5 [facility] MCHC Auto (RBC) [Mass/Vol]Or dered By: Renard Burgos on 05-09-2022 MCHC (RBC) [Mass/Vol] 33.2 g/dL 32-36 [facility] Platelets bldOrdered By: Lyubov Burgos on 05-09-2022 Platelets (Bld) [#/Vol] 202 10*3/uL 150-450 [facility] Absolute lymphocyte countOrd ered By: Renard Burgos on 05-03-2022 Lymphocytes Auto (Unsp spec) [#/Vol] 1.86 10*3/uL 0.83-4.51 [facility] Basophil percentageOrdered B y: Renard Burgos on 05-03-2022 Basophils/100 WBC (Bld) 0.3 % 0-1 [facility] Eosinophils/100 WBC (Bld) 0.3 % 0-5 [facility] Neutrophils (Bld) [#/Vol] 6.4 10*3/uL 2.0-7.7 [facility] Neutrophils/100 WBC (Bld) 71.9 % 47-70 [facility] WBC (Bld) [#/Vol] 8.9 10*3/uL 4.4-11.0 [facility] Blood erythrocytes count (nu mber/volume)Ordered By: Renard Burgos on 05-03-2022 RBC (Bld) [#/Vol] 4.65 10*6/uL 4.6-6.2 [facility] Blood hemoglobin measurement (mass/volume)Ordered By: Renard Burgos on 05-03-2022 Hemoglobin (Bld) [Mass/Vol] 14.5 g/dL 13.0-16.5 [facility] Blood lymphocytes/100 leukoc ytesOrdered By: Renard Burgos on 05-03-2022 Lymphocytes/100 WBC (Bld) 20.9 % 19-41 [facility] Blood monocytes/100 leukocyt esOrdered By: Renard Burgos on 05-03-2022 Monocytes/100 WBC (Bld) 6.2 % 0-10 [facility] Blood platelet mean volumeOr dered By: Renard Burgos on 05-03-2022 Platelet mean volume (Bld) [Entitic vol] 11.1 fL 6.2-12.0 [facility] Determination of erythrocyte mean corpuscular volume (MCV)Ordered By: Renard Burgos on 05-03-2022 MCV (RBC) [Entitic vol] 90.1 fL 80-94 [facility] Hematocrit Auto (Bld) [Volum e fraction]Ordered By: Renard Burgos on 05-03-2022 Hematocrit (Bld) [Volume fraction] 41.9 % 40-54 [facility] - Hematology and Cell countsOrdered By: Renard Burgos on 05-03-2022 Erythrocyte distribution width (RBC) [Entitic vol] 39.7 fL 35.1-43.9 [facility] Erythrocyte distribution width (RBC) [Ratio] 12.2 % 11.6-14.6 [facility] Immature granulocytes/100 WBC (Bld) 0.400 % 0.0-0.9 [facility] Comment on above: IG% - Immature Granu locytes (promyelocytes, myelocytes and metamyelocytes) > 1% indicates that a LEFT SHIFT is Present. MCH (RBC) [Entitic mass] 31.2 pg 27.0-32.0 [facility] Nucleated RBC/100 WBC (Bld) [Ratio] 0 % 0-5 [facility] MCHC Auto (RBC) [Mass/Vol]Or dered By: Renard Burgos on 05-03-2022 MCHC (RBC) [Mass/Vol] 34.6 g/dL 32-36 [facility] Platelets bldOrdered By: Lyubov Burgos on 05-03-2022 Platelets (Bld) [#/Vol] 203 10*3/uL 150-450 [facility] Absolute lymphocyte countOrd ered By: Renard Burgos on 04-26-2022 Lymphocytes Auto (Unsp spec) [#/Vol] 2.79 10*3/uL 0.83-4.51 [facility] Basophil percentageOrdered B y: Renard Burgos on 04-26-2022 Basophils/100 WBC (Bld) 0.4 % 0-1 [facility] Eosinophils/100 WBC (Bld) 0.4 % 0-5 [facility] Neutrophils (Bld) [#/Vol] 5.9 10*3/uL 2.0-7.7 [facility] Neutrophils/100 WBC (Bld) 60.9 % 47-70 [facility] WBC (Bld) [#/Vol] 9.7 10*3/uL 4.4-11.0 [facility] Blood erythrocytes count (nu mber/volume)Ordered By: Renard Burgos on 04-26-2022 RBC (Bld) [#/Vol] 4.92 10*6/uL 4.6-6.2 [facility] Blood hemoglobin measurement (mass/volume)Ordered By: Renard Burgos on 04-26-2022 Hemoglobin (Bld) [Mass/Vol] 15.2 g/dL 13.0-16.5 [facility] Blood lymphocytes/100 leukoc ytesOrdered By: Renard Burgos on 04-26-2022 Lymphocytes/100 WBC (Bld) 28.9 % 19-41 [facility] Blood monocytes/100 leukocyt esOrdered By: Renard Burgos on 04-26-2022 Monocytes/100 WBC (Bld) 9.0 % 0-10 [facility] Blood platelet mean volumeOr dered By: Renard Burgos on 04-26-2022 Platelet mean volume (Bld) [Entitic vol] 11.0 fL 6.2-12.0 [facility] Determination of erythrocyte mean corpuscular volume (MCV)Ordered By: Renard Burgos on 04-26-2022 MCV (RBC) [Entitic vol] 92.3 fL 80-94 [facility] Hematocrit Auto (Bld) [Volum e fraction]Ordered By: Renard Burgos on 04-26-2022 Hematocrit (Bld) [Volume fraction] 45.4 % 40-54 [facility] - Hematology and Cell countsOrdered By: Renard Burgos on 04-26-2022 Erythrocyte distribution width (RBC) [Entitic vol] 42.1 fL 35.1-43.9 [facility] Erythrocyte distribution width (RBC) [Ratio] 12.5 % 11.6-14.6 [facility] Immature granulocytes/100 WBC (Bld) 0.400 % 0.0-0.9 [facility] Comment on above: IG% - Immature Granu locytes (promyelocytes, myelocytes and metamyelocytes) > 1% indicates that a LEFT SHIFT is Present. MCH (RBC) [Entitic mass] 30.9 pg 27.0-32.0 [facility] Nucleated RBC/100 WBC (Bld) [Ratio] 0 % 0-5 [facility] MCHC Auto (RBC) [Mass/Vol]Or dered By: Renard Burgos on 04-26-2022 MCHC (RBC) [Mass/Vol] 33.5 g/dL 32-36 [facility] Platelets bldOrdered By: Pet lizy Loretta on 04-26-2022 Platelets (Bld) [#/Vol] 178 10*3/uL 150-450 [facility] Absolute lymphocyte countOrd ered By: Renard Burgos on 04-18-2022 Lymphocytes Auto (Unsp spec) [#/Vol] 2.03 10*3/uL 0.83-4.51 [facility] Basophil percentageOrdered B y: Renard Burgos on 04-18-2022 Basophils/100 WBC (Bld) 0.6 % 0-1 [facility] Eosinophils/100 WBC (Bld) 0.6 % 0-5 [facility] Neutrophils (Bld) [#/Vol] 4.5 10*3/uL 2.0-7.7 [facility] Neutrophils/100 WBC (Bld) 62.0 % 47-70 [facility] WBC (Bld) [#/Vol] 7.2 10*3/uL 4.4-11.0 [facility] Blood erythrocytes count (nu mber/volume)Ordered By: Renard Burgos on 04-18-2022 RBC (Bld) [#/Vol] 4.67 10*6/uL 4.6-6.2 [facility] Blood hemoglobin measurement (mass/volume)Ordered By: Renard Burgos on 04-18-2022 Hemoglobin (Bld) [Mass/Vol] 14.5 g/dL 13.0-16.5 [facility] Blood lymphocytes/100 leukoc ytesOrdered By: Renard Burgos on 04-18-2022 Lymphocytes/100 WBC (Bld) 28.2 % 19-41 [facility] Blood monocytes/100 leukocyt esOrdered By: Renard Burgos on 04-18-2022 Monocytes/100 WBC (Bld) 8.2 % 0-10 [facility] Blood platelet mean volumeOr dered By: Renard Burgos on 04-18-2022 Platelet mean volume (Bld) [Entitic vol] 11.2 fL 6.2-12.0 [facility] Determination of erythrocyte mean corpuscular volume (MCV)Ordered By: Renard Burgos on 04-18-2022 MCV (RBC) [Entitic vol] 90.8 fL 80-94 [facility] Hematocrit Auto (Bld) [Volum e fraction]Ordered By: Renard Burgos on 04-18-2022 Hematocrit (Bld) [Volume fraction] 42.4 % 40-54 [facility] - Hematology and Cell countsOrdered By: Renard Burgos on 04-18-2022 Erythrocyte distribution width (RBC) [Entitic vol] 41.1 fL 35.1-43.9 [facility] Erythrocyte distribution width (RBC) [Ratio] 12.5 % 11.6-14.6 [facility] Immature granulocytes/100 WBC (Bld) 0.400 % 0.0-0.9 [facility] Comment on above: IG% - Immature Granu locytes (promyelocytes, myelocytes and metamyelocytes) > 1% indicates that a LEFT SHIFT is Present. MCH (RBC) [Entitic mass] 31.0 pg 27.0-32.0 [facility] Nucleated RBC/100 WBC (Bld) [Ratio] 0 % 0-5 [facility] MCHC Auto (RBC) [Mass/Vol]Or dered By: Renard Burgos on 04-18-2022 MCHC (RBC) [Mass/Vol] 34.2 g/dL 32-36 [facility] Platelets bldOrdered By: Lyubov Burgos on 04-18-2022 Platelets (Bld) [#/Vol] 196 10*3/uL 150-450 [facility] Basophil percentageOrdered B y: Renard Burgos on 04-14-2022 Bilirubin [Mass/Vol] 0.40 mg/dL 0.20-1.00 [facility] Comment on above: For patients on eltr ombopag therapy, use of Dimension Jackson TBIL is not recommended. Protein [Mass/Vol] 6.3 g/dL 6.4-8.2 [facility] Direct bilirubinOrdered By: Renard Burgos on 04-14-2022 Bilirubin.direct [Mass/Vol] 0.12 mg/dL 0.00-0.30 [facility] - Chemistry and C hemistry - challengeOrdered By: Renard Burgos on 04-14-2022 ALP [Catalytic activity/Vol] 117 U/L 45-117 [facility] ALT [Catalytic activity/Vol] 26 U/L 16-61 [facility] Globulin (S) [Mass/Vol] 3.2 g/dL 2.2-4.2 [facility] Serum or plasma albumin gordy urement (mass/volume)Ordered By: Renard Burgos on 04-14-2022 Albumin [Mass/Vol] 3.1 g/dL 3.2-5.0 [facility] Thin prep Papanicolaou smear with manual screeningOrdered By: Renard Burgos on 04-14-2022 Thin prep Papanicolaou smear with manual screening 12 U/L 15-37 [facility] Absolute lymphocyte countOrd ered By: Renard Burgos on 04-11-2022 Lymphocytes Auto (Unsp spec) [#/Vol] 2.16 10*3/uL 0.83-4.51 [facility] Basophil percentageOrdered B y: Renard Burgos on 04-11-2022 Basophils/100 WBC (Bld) 0.4 % 0-1 [facility] Eosinophils/100 WBC (Bld) 0.4 % 0-5 [facility] Neutrophils (Bld) [#/Vol] 4.2 10*3/uL 2.0-7.7 [facility] Neutrophils/100 WBC (Bld) 61.1 % 47-70 [facility] WBC (Bld) [#/Vol] 6.9 10*3/uL 4.4-11.0 [facility] Blood erythrocytes count (nu mber/volume)Ordered By: Renard Burgos on 04-11-2022 RBC (Bld) [#/Vol] 4.58 10*6/uL 4.6-6.2 [facility] Blood hemoglobin measurement (mass/volume)Ordered By: Renard Burgos on 04-11-2022 Hemoglobin (Bld) [Mass/Vol] 13.9 g/dL 13.0-16.5 [facility] Blood lymphocytes/100 leukoc ytesOrdered By: Renard Burgos on 04-11-2022 Lymphocytes/100 WBC (Bld) 31.2 % 19-41 [facility] Blood monocytes/100 leukocyt esOrdered By: Renard Burgos on 04-11-2022 Monocytes/100 WBC (Bld) 6.5 % 0-10 [facility] Blood platelet mean volumeOr dered By: Renard Burgos on 04-11-2022 Platelet mean volume (Bld) [Entitic vol] 11.4 fL 6.2-12.0 [facility] Determination of erythrocyte mean corpuscular volume (MCV)Ordered By: Renard Burgos on 04-11-2022 MCV (RBC) [Entitic vol] 91.9 fL 80-94 [facility] Hematocrit Auto (Bld) [Volum e fraction]Ordered By: Renard Burgos on 04-11-2022 Hematocrit (Bld) [Volume fraction] 42.1 % 40-54 [facility] - Hematology and Cell countsOrdered By: Renard Burgos on 04-11-2022 Erythrocyte distribution width (RBC) [Entitic vol] 41.5 fL 35.1-43.9 [facility] Erythrocyte distribution width (RBC) [Ratio] 12.3 % 11.6-14.6 [facility] Immature granulocytes/100 WBC (Bld) 0.400 % 0.0-0.9 [facility] Comment on above: IG% - Immature Granu locytes (promyelocytes, myelocytes and metamyelocytes) > 1% indicates that a LEFT SHIFT is Present. MCH (RBC) [Entitic mass] 30.3 pg 27.0-32.0 [facility] Nucleated RBC/100 WBC (Bld) [Ratio] 0 % 0-5 [facility] MCHC Auto (RBC) [Mass/Vol]Or dered By: Renard Burgos on 04-11-2022 MCHC (RBC) [Mass/Vol] 33.0 g/dL 32-36 [facility] Platelets bldOrdered By: Lyubov Burgos on 04-11-2022 Platelets (Bld) [#/Vol] 191 10*3/uL 150-450 [facility] Absolute lymphocyte countOrd ered By: Renard Burgos on 04-04-2022 Lymphocytes Auto (Unsp spec) [#/Vol] 1.99 10*3/uL 0.83-4.51 [facility] Basophil percentageOrdered B y: Renard Burgos on 04-04-2022 Basophils/100 WBC (Bld) 0.4 % 0-1 [facility] Cholesterol [Mass/Vol] 158 mg/dL <200 [facility] Comment on above: <200 mg/dL Desirable 200-240 mg/dL Borderline >240 mg/dL High Risk Eosinophils/100 WBC (Bld) 0.4 % 0-5 [facility] Neutrophils (Bld) [#/Vol] 4.9 10*3/uL 2.0-7.7 [facility] Neutrophils/100 WBC (Bld) 64.2 % 47-70 [facility] Triglyceride [Mass/Vol] 259 mg/dL <199 [facility] Comment on above: The drugs N-Acetylcy steine and Metamizole may falsely depress this assay.Serum Triglycerides Reference Interval Normal <150 mg/dL Borderline high 150 - 199 mg/dL High 200 - 499 mg/dL Very High > or = 500 mg/dL WBC (Bld) [#/Vol] 7.7 10*3/uL 4.4-11.0 [facility] Blood erythrocytes count (nu mber/volume)Ordered By: Renard Burgos on 04-04-2022 RBC (Bld) [#/Vol] 4.63 10*6/uL 4.6-6.2 [facility] Blood hemoglobin measurement (mass/volume)Ordered By: Renard Burgos on 04-04-2022 Hemoglobin (Bld) [Mass/Vol] 14.1 g/dL 13.0-16.5 [facility] Blood lymphocytes/100 leukoc ytesOrdered By: Renard Burgos on 04-04-2022 Lymphocytes/100 WBC (Bld) 25.9 % 19-41 [facility] Blood monocytes/100 leukocyt esOrdered By: Renard Burgos on 04-04-2022 Monocytes/100 WBC (Bld) 8.6 % 0-10 [facility] Blood platelet mean volumeOr dered By: Renard Burogs on 04-04-2022 Platelet mean volume (Bld) [Entitic vol] 11.3 fL 6.2-12.0 [facility] Determination of erythrocyte mean corpuscular volume (MCV)Ordered By: Renard Burgos on 04-04-2022 MCV (RBC) [Entitic vol] 90.7 fL 80-94 [facility] Hematocrit Auto (Bld) [Volum e fraction]Ordered By: Renard Burgos on 04-04-2022 Hematocrit (Bld) [Volume fraction] 42.0 % 40-54 [facility] - Hematology and Cell countsOrdered By: Renard Burgos on 04-04-2022 Erythrocyte distribution width (RBC) [Entitic vol] 41.3 fL 35.1-43.9 [facility] Erythrocyte distribution width (RBC) [Ratio] 12.4 % 11.6-14.6 [facility] Immature granulocytes/100 WBC (Bld) 0.500 % 0.0-0.9 [facility] Comment on above: IG% - Immature Granu locytes (promyelocytes, myelocytes and metamyelocytes) > 1% indicates that a LEFT SHIFT is Present. MCH (RBC) [Entitic mass] 30.5 pg 27.0-32.0 [facility] Nucleated RBC/100 WBC (Bld) [Ratio] 0 % 0-5 [facility] MCHC Auto (RBC) [Mass/Vol]Or dered By: Renard Burgos on 04-04-2022 MCHC (RBC) [Mass/Vol] 33.6 g/dL 32-36 [facility] Platelets bldOrdered By: Lyubov Burgos on 04-04-2022 Platelets (Bld) [#/Vol] 174 10*3/uL 150-450 [facility] Serum or plasma cholesterol in HDL measurement (mass/volume)Ordered By: Renard Burgos on 04-04-2022 Cholesterol in HDL [Mass/Vol] 26 mg/dL >40 [facility] Comment on above: The drugs N-Acetylcy steine and Metamizole may falsely depress this assay. Reference Range HDL <40 mg/dL Low HDL Cholesterol HDL >or= 60 mg/dL High HDL Cholesterol Serum or plasma cholesterol in VLDL measurement (mass/volume)Ordered By: Renard Burgos on 04-04-2022 Cholesterol in VLDL [Mass/Vol] 52 mg/dL 5-40 [facility] Serum or plasma low density lipoprotein (LDL) cholesterol measurement (mass/volume)Ordered By: Renard Burgos on 04-04-2022 Cholesterol in LDL [Mass/Vol] 80 mg/dL 0-130 [facility] Absolute lymphocyte countOrd ered By: Renard Burgos on 03-28-2022 Lymphocytes Auto (Unsp spec) [#/Vol] 2.25 10*3/uL 0.83-4.51 [facility] Basophil percentageOrdered B y: Renard Burgos on 03-28-2022 Basophils/100 WBC (Bld) 0.6 % 0-1 [facility] Eosinophils/100 WBC (Bld) 0.5 % 0-5 [facility] Neutrophils (Bld) [#/Vol] 4.8 10*3/uL 2.0-7.7 [facility] Neutrophils/100 WBC (Bld) 60.5 % 47-70 [facility] WBC (Bld) [#/Vol] 8.0 10*3/uL 4.4-11.0 [facility] Blood erythrocytes count (nu mber/volume)Ordered By: Renard Burgos on 03-28-2022 RBC (Bld) [#/Vol] 4.69 10*6/uL 4.6-6.2 [facility] Blood hemoglobin measurement (mass/volume)Ordered By: Renard Burgos on 03-28-2022 Hemoglobin (Bld) [Mass/Vol] 14.4 g/dL 13.0-16.5 [facility] Blood lymphocytes/100 leukoc ytesOrdered By: Renard Burgos on 03-28-2022 Lymphocytes/100 WBC (Bld) 28.1 % 19-41 [facility] Blood monocytes/100 leukocyt esOrdered By: Renard Burgos on 03-28-2022 Monocytes/100 WBC (Bld) 9.8 % 0-10 [facility] Blood platelet mean volumeOr dered By: Renard Burgos on 03-28-2022 Platelet mean volume (Bld) [Entitic vol] 10.8 fL 6.2-12.0 [facility] Determination of erythrocyte mean corpuscular volume (MCV)Ordered By: Renard Burgos on 03-28-2022 MCV (RBC) [Entitic vol] 92.1 fL 80-94 [facility] Hematocrit Auto (Bld) [Volum e fraction]Ordered By: Renard Burgos on 03-28-2022 Hematocrit (Bld) [Volume fraction] 43.2 % 40-54 [facility] - Hematology and Cell countsOrdered By: Renard Burgos on 03-28-2022 Erythrocyte distribution width (RBC) [Entitic vol] 42.0 fL 35.1-43.9 [facility] Erythrocyte distribution width (RBC) [Ratio] 12.5 % 11.6-14.6 [facility] Immature granulocytes/100 WBC (Bld) 0.500 % 0.0-0.9 [facility] Comment on above: IG% - Immature Granu locytes (promyelocytes, myelocytes and metamyelocytes) > 1% indicates that a LEFT SHIFT is Present. MCH (RBC) [Entitic mass] 30.7 pg 27.0-32.0 [facility] Nucleated RBC/100 WBC (Bld) [Ratio] 0 % 0-5 [facility] MCHC Auto (RBC) [Mass/Vol]Or dered By: Renard Burgos on 03-28-2022 MCHC (RBC) [Mass/Vol] 33.3 g/dL 32-36 [facility] Platelets bldOrdered By: Lyubov Burgos on 03-28-2022 Platelets (Bld) [#/Vol] 207 10*3/uL 150-450 [facility] Absolute lymphocyte countOrd ered By: Renard Burgos on 03-21-2022 Lymphocytes Auto (Unsp spec) [#/Vol] 1.98 10*3/uL 0.83-4.51 [facility] Basophil percentageOrdered B y: Renard Burgos on 03-21-2022 Basophils/100 WBC (Bld) 0.5 % 0-1 [facility] Eosinophils/100 WBC (Bld) 0.5 % 0-5 [facility] Neutrophils (Bld) [#/Vol] 4.9 10*3/uL 2.0-7.7 [facility] Neutrophils/100 WBC (Bld) 63.6 % 47-70 [facility] WBC (Bld) [#/Vol] 7.7 10*3/uL 4.4-11.0 [facility] Blood erythrocytes count (nu mber/volume)Ordered By: Renard Burgos on 03-21-2022 RBC (Bld) [#/Vol] 4.82 10*6/uL 4.6-6.2 [facility] Blood hemoglobin measurement (mass/volume)Ordered By: Renard Burgos on 03-21-2022 Hemoglobin (Bld) [Mass/Vol] 14.9 g/dL 13.0-16.5 [facility] Blood lymphocytes/100 leukoc ytesOrdered By: Renard Burgos on 03-21-2022 Lymphocytes/100 WBC (Bld) 25.7 % 19-41 [facility] Blood monocytes/100 leukocyt esOrdered By: Renard Burgos on 03-21-2022 Monocytes/100 WBC (Bld) 9.3 % 0-10 [facility] Blood platelet mean volumeOr dered By: Renard Burgos on 03-21-2022 Platelet mean volume (Bld) [Entitic vol] 10.8 fL 6.2-12.0 [facility] Determination of erythrocyte mean corpuscular volume (MCV)Ordered By: Renard Burgos on 03-21-2022 MCV (RBC) [Entitic vol] 90.7 fL 80-94 [facility] Hematocrit Auto (Bld) [Volum e fraction]Ordered By: Renard Burgos on 03-21-2022 Hematocrit (Bld) [Volume fraction] 43.7 % 40-54 [facility] - Hematology and Cell countsOrdered By: Renard Burgos on 03-21-2022 Erythrocyte distribution width (RBC) [Entitic vol] 40.8 fL 35.1-43.9 [facility] Erythrocyte distribution width (RBC) [Ratio] 12.4 % 11.6-14.6 [facility] Immature granulocytes/100 WBC (Bld) 0.400 % 0.0-0.9 [facility] Comment on above: IG% - Immature Granu locytes (promyelocytes, myelocytes and metamyelocytes) > 1% indicates that a LEFT SHIFT is Present. MCH (RBC) [Entitic mass] 30.9 pg 27.0-32.0 [facility] Nucleated RBC/100 WBC (Bld) [Ratio] 0 % 0-5 [facility] MCHC Auto (RBC) [Mass/Vol]Or dered By: Renard Burgos on 03-21-2022 MCHC (RBC) [Mass/Vol] 34.1 g/dL 32-36 [facility] Platelets bldOrdered By: Pet lizy Loretta on 03-21-2022 Platelets (Bld) [#/Vol] 186 10*3/uL 150-450 [facility] Absolute lymphocyte countOrd ered By: Renard Burgos on 03-14-2022 Lymphocytes Auto (Unsp spec) [#/Vol] 2.18 10*3/uL 0.83-4.51 [facility] Basophil percentageOrdered B y: Renard Burgos on 03-14-2022 Basophils/100 WBC (Bld) 0.4 % 0-1 [facility] Eosinophils/100 WBC (Bld) 0.6 % 0-5 [facility] Neutrophils (Bld) [#/Vol] 4.3 10*3/uL 2.0-7.7 [facility] Neutrophils/100 WBC (Bld) 58.8 % 47-70 [facility] WBC (Bld) [#/Vol] 7.3 10*3/uL 4.4-11.0 [facility] Blood erythrocytes count (nu mber/volume)Ordered By: Renard Burgos on 03-14-2022 RBC (Bld) [#/Vol] 4.80 10*6/uL 4.6-6.2 [facility] Blood hemoglobin measurement (mass/volume)Ordered By: Renard Burgos on 03-14-2022 Hemoglobin (Bld) [Mass/Vol] 14.5 g/dL 13.0-16.5 [facility] Blood lymphocytes/100 leukoc ytesOrdered By: Renard Burgos on 03-14-2022 Lymphocytes/100 WBC (Bld) 30.1 % 19-41 [facility] Blood monocytes/100 leukocyt esOrdered By: Renard Burgos on 03-14-2022 Monocytes/100 WBC (Bld) 9.5 % 0-10 [facility] Blood platelet mean volumeOr dered By: Renard Burgos on 03-14-2022 Platelet mean volume (Bld) [Entitic vol] 11.0 fL 6.2-12.0 [facility] Determination of erythrocyte mean corpuscular volume (MCV)Ordered By: Renard Burgos on 03-14-2022 MCV (RBC) [Entitic vol] 91.5 fL 80-94 [facility] Hematocrit Auto (Bld) [Volum e fraction]Ordered By: Renard Burgos on 03-14-2022 Hematocrit (Bld) [Volume fraction] 43.9 % 40-54 [facility] - Hematology and Cell countsOrdered By: Renrad Burgos on 03-14-2022 Erythrocyte distribution width (RBC) [Entitic vol] 41.1 fL 35.1-43.9 [facility] Erythrocyte distribution width (RBC) [Ratio] 12.4 % 11.6-14.6 [facility] Immature granulocytes/100 WBC (Bld) 0.600 % 0.0-0.9 [facility] Comment on above: IG% - Immature Granu locytes (promyelocytes, myelocytes and metamyelocytes) > 1% indicates that a LEFT SHIFT is Present. MCH (RBC) [Entitic mass] 30.2 pg 27.0-32.0 [facility] Nucleated RBC/100 WBC (Bld) [Ratio] 0 % 0-5 [facility] MCHC Auto (RBC) [Mass/Vol]Or dered By: Renard Burgos on 03-14-2022 MCHC (RBC) [Mass/Vol] 33.0 g/dL 32-36 [facility] Platelets bldOrdered By: Lyubov Burgos on 03-14-2022 Platelets (Bld) [#/Vol] 201 10*3/uL 150-450 [facility] Absolute lymphocyte countOrd ered By: Renard Burgos on 2022 Lymphocytes Auto (Unsp spec) [#/Vol] 1.97 10*3/uL 0.83-4.51 [facility] Basophil percentageOrdered B y: Renard Burgos on 2022 Basophils/100 WBC (Bld) 0.6 % 0-1 [facility] Eosinophils/100 WBC (Bld) 0.4 % 0-5 [facility] Neutrophils (Bld) [#/Vol] 4.3 10*3/uL 2.0-7.7 [facility] Neutrophils/100 WBC (Bld) 61.3 % 47-70 [facility] WBC (Bld) [#/Vol] 7.0 10*3/uL 4.4-11.0 [facility] Blood erythrocytes count (nu mber/volume)Ordered By: Renard Burgos on 2022 RBC (Bld) [#/Vol] 4.78 10*6/uL 4.6-6.2 [facility] Blood hemoglobin measurement (mass/volume)Ordered By: Renard Burgos on 2022 Hemoglobin (Bld) [Mass/Vol] 14.4 g/dL 13.0-16.5 [facility] Blood lymphocytes/100 leukoc ytesOrdered By: Renard Burgos on 2022 Lymphocytes/100 WBC (Bld) 28.3 % 19-41 [facility] Blood monocytes/100 leukocyt esOrdered By: Renard Burgos on 2022 Monocytes/100 WBC (Bld) 9.1 % 0-10 [facility] Blood platelet mean volumeOr dered By: Renard Burgos on 2022 Platelet mean volume (Bld) [Entitic vol] 11.1 fL 6.2-12.0 [facility] Determination of erythrocyte mean corpuscular volume (MCV)Ordered By: Renard Burgos on 2022 MCV (RBC) [Entitic vol] 91.2 fL 80-94 [facility] Hematocrit Auto (Bld) [Volum e fraction]Ordered By: Renard Burgos on 2022 Hematocrit (Bld) [Volume fraction] 43.6 % 40-54 [facility] - Hematology and Cell countsOrdered By: Renard Burgos on 2022 Erythrocyte distribution width (RBC) [Entitic vol] 42.0 fL 35.1-43.9 [facility] Erythrocyte distribution width (RBC) [Ratio] 12.6 % 11.6-14.6 [facility] Immature granulocytes/100 WBC (Bld) 0.300 % 0.0-0.9 [facility] Comment on above: IG% - Immature Granu locytes (promyelocytes, myelocytes and metamyelocytes) > 1% indicates that a LEFT SHIFT is Present. MCH (RBC) [Entitic mass] 30.1 pg 27.0-32.0 [facility] Nucleated RBC/100 WBC (Bld) [Ratio] 0 % 0-5 [facility] MCHC Auto (RBC) [Mass/Vol]Or dered By: Renard Burgos on 2022 MCHC (RBC) [Mass/Vol] 33.0 g/dL 32-36 [facility] Platelets bldOrdered By: Lyubov Burgos on 2022 Platelets (Bld) [#/Vol] 210 10*3/uL 150-450 [facility] Absolute lymphocyte countOrd ered By: Renard Burgos on 02-28-2022 Lymphocytes Auto (Unsp spec) [#/Vol] 1.85 10*3/uL 0.83-4.51 [facility] Basophil percentageOrdered B y: Renard Burgos on 02-28-2022 Basophils/100 WBC (Bld) 0.4 % 0-1 [facility] Eosinophils/100 WBC (Bld) 0.4 % 0-5 [facility] Neutrophils (Bld) [#/Vol] 5.3 10*3/uL 2.0-7.7 [facility] Neutrophils/100 WBC (Bld) 67.8 % 47-70 [facility] WBC (Bld) [#/Vol] 7.8 10*3/uL 4.4-11.0 [facility] Blood erythrocytes count (nu mber/volume)Ordered By: Renard Burgos on 02-28-2022 RBC (Bld) [#/Vol] 4.58 10*6/uL 4.6-6.2 [facility] Blood hemoglobin measurement (mass/volume)Ordered By: Renard Burgos on 02-28-2022 Hemoglobin (Bld) [Mass/Vol] 14.3 g/dL 13.0-16.5 [facility] Blood lymphocytes/100 leukoc ytesOrdered By: Renard Burgos on 02-28-2022 Lymphocytes/100 WBC (Bld) 23.8 % 19-41 [facility] Blood monocytes/100 leukocyt esOrdered By: Renard Burgos on 02-28-2022 Monocytes/100 WBC (Bld) 7.2 % 0-10 [facility] Blood platelet mean volumeOr dered By: Renard Burgos on 02-28-2022 Platelet mean volume (Bld) [Entitic vol] 10.8 fL 6.2-12.0 [facility] Determination of erythrocyte mean corpuscular volume (MCV)Ordered By: Renard Burgos on 02-28-2022 MCV (RBC) [Entitic vol] 91.5 fL 80-94 [facility] Hematocrit Auto (Bld) [Volum e fraction]Ordered By: Renard Burgos on 02-28-2022 Hematocrit (Bld) [Volume fraction] 41.9 % 40-54 [facility] - Hematology and Cell countsOrdered By: Renard Burgos on 02-28-2022 Erythrocyte distribution width (RBC) [Entitic vol] 42.2 fL 35.1-43.9 [facility] Erythrocyte distribution width (RBC) [Ratio] 12.7 % 11.6-14.6 [facility] Immature granulocytes/100 WBC (Bld) 0.400 % 0.0-0.9 [facility] Comment on above: IG% - Immature Granu locytes (promyelocytes, myelocytes and metamyelocytes) > 1% indicates that a LEFT SHIFT is Present. MCH (RBC) [Entitic mass] 31.2 pg 27.0-32.0 [facility] Nucleated RBC/100 WBC (Bld) [Ratio] 0 % 0-5 [facility] MCHC Auto (RBC) [Mass/Vol]Or dered By: Renard Burgos on 02-28-2022 MCHC (RBC) [Mass/Vol] 34.1 g/dL 32-36 [facility] Platelets bldOrdered By: Lyubov Burgos on 02-28-2022 Platelets (Bld) [#/Vol] 202 10*3/uL 150-450 [facility] Absolute lymphocyte countOrd ered By: Renard Burgos on 02-21-2022 Lymphocytes Auto (Unsp spec) [#/Vol] 1.93 10*3/uL 0.83-4.51 [facility] Basophil percentageOrdered B y: Renard Burgos on 02-21-2022 Basophils/100 WBC (Bld) 0.4 % 0-1 [facility] Eosinophils/100 WBC (Bld) 0.4 % 0-5 [facility] Neutrophils (Bld) [#/Vol] 4.6 10*3/uL 2.0-7.7 [facility] Neutrophils/100 WBC (Bld) 63.4 % 47-70 [facility] WBC (Bld) [#/Vol] 7.2 10*3/uL 4.4-11.0 [facility] Blood erythrocytes count (nu mber/volume)Ordered By: Renard Burgos on 02-21-2022 RBC (Bld) [#/Vol] 4.54 10*6/uL 4.6-6.2 [facility] Blood hemoglobin measurement (mass/volume)Ordered By: Rneard Burgos on 02-21-2022 Hemoglobin (Bld) [Mass/Vol] 14.1 g/dL 13.0-16.5 [facility] Blood lymphocytes/100 leukoc ytesOrdered By: Renard Burgos on 02-21-2022 Lymphocytes/100 WBC (Bld) 26.7 % 19-41 [facility] Blood monocytes/100 leukocyt esOrdered By: Renard Burgos on 02-21-2022 Monocytes/100 WBC (Bld) 8.8 % 0-10 [facility] Blood platelet mean volumeOr dered By: Renard Burgos on 02-21-2022 Platelet mean volume (Bld) [Entitic vol] 11.1 fL 6.2-12.0 [facility] Determination of erythrocyte mean corpuscular volume (MCV)Ordered By: Renard Burgos on 02-21-2022 MCV (RBC) [Entitic vol] 91.4 fL 80-94 [facility] Hematocrit Auto (Bld) [Volum e fraction]Ordered By: Renard Burgos on 02-21-2022 Hematocrit (Bld) [Volume fraction] 41.5 % 40-54 [facility] - Hematology and Cell countsOrdered By: Renard Burgos on 02-21-2022 Erythrocyte distribution width (RBC) [Entitic vol] 41.9 fL 35.1-43.9 [facility] Erythrocyte distribution width (RBC) [Ratio] 12.6 % 11.6-14.6 [facility] Immature granulocytes/100 WBC (Bld) 0.300 % 0.0-0.9 [facility] Comment on above: IG% - Immature Granu locytes (promyelocytes, myelocytes and metamyelocytes) > 1% indicates that a LEFT SHIFT is Present. MCH (RBC) [Entitic mass] 31.1 pg 27.0-32.0 [facility] Nucleated RBC/100 WBC (Bld) [Ratio] 0 % 0-5 [facility] MCHC Auto (RBC) [Mass/Vol]Or dered By: Renard uBrgos on 02-21-2022 MCHC (RBC) [Mass/Vol] 34.0 g/dL 32-36 [facility] Platelets bldOrdered By: [facility] [place] on 02-21-2022 Platelets (Bld) [#/Vol] 189 10*3/uL 150-450 [facility] Absolute lymphocyte countOrd ered By: Renard Burgos on 02-14-2022 Lymphocytes Auto (Unsp spec) [#/Vol] 2.00 10*3/uL 0.83-4.51 [facility] Basophil percentageOrdered B y: Renard Burgos on 02-14-2022 Basophils/100 WBC (Bld) 0.6 % 0-1 [facility] Eosinophils/100 WBC (Bld) 0.3 % 0-5 [facility] Neutrophils (Bld) [#/Vol] 6.4 10*3/uL 2.0-7.7 [facility] Neutrophils/100 WBC (Bld) 69.5 % 47-70 [facility] WBC (Bld) [#/Vol] 9.3 10*3/uL 4.4-11.0 [facility] Blood erythrocytes count (nu mber/volume)Ordered By: Renard Burgos on 02-14-2022 RBC (Bld) [#/Vol] 4.65 10*6/uL 4.6-6.2 [facility] Blood hemoglobin measurement (mass/volume)Ordered By: Renard Burgos on 02-14-2022 Hemoglobin (Bld) [Mass/Vol] 14.6 g/dL 13.0-16.5 [facility] Blood lymphocytes/100 leukoc ytesOrdered By: Renard Burgos on 02-14-2022 Lymphocytes/100 WBC (Bld) 21.6 % 19-41 [facility] Blood monocytes/100 leukocyt esOrdered By: Renard Burgos on 02-14-2022 Monocytes/100 WBC (Bld) 7.6 % 0-10 [facility] Blood platelet mean volumeOr dered By: Renard Burgos on 02-14-2022 Platelet mean volume (Bld) [Entitic vol] 11.1 fL 6.2-12.0 [facility] Determination of erythrocyte mean corpuscular volume (MCV)Ordered By: Renard Burgos on 02-14-2022 MCV (RBC) [Entitic vol] 91.8 fL 80-94 [facility] Hematocrit Auto (Bld) [Volum e fraction]Ordered By: Renard Burgos on 02-14-2022 Hematocrit (Bld) [Volume fraction] 42.7 % 40-54 [facility] - Hematology and Cell countsOrdered By: Renard Burgos on 02-14-2022 Erythrocyte distribution width (RBC) [Entitic vol] 43.7 fL 35.1-43.9 [facility] Erythrocyte distribution width (RBC) [Ratio] 13.0 % 11.6-14.6 [facility] Immature granulocytes/100 WBC (Bld) 0.400 % 0.0-0.9 [facility] Comment on above: IG% - Immature Granu locytes (promyelocytes, myelocytes and metamyelocytes) > 1% indicates that a LEFT SHIFT is Present. MCH (RBC) [Entitic mass] 31.4 pg 27.0-32.0 [facility] Nucleated RBC/100 WBC (Bld) [Ratio] 0 % 0-5 [facility] MCHC Auto (RBC) [Mass/Vol]Or dered By: Renard Burgos on 02-14-2022 MCHC (RBC) [Mass/Vol] 34.2 g/dL 32-36 [facility] Platelets bldOrdered By: Lyubov Burgos on 02-14-2022 Platelets (Bld) [#/Vol] 187 10*3/uL 150-450 [facility] Absolute lymphocyte countOrd ered By: Renard Burgos on 02-07-2022 Lymphocytes Auto (Unsp spec) [#/Vol] 1.97 10*3/uL 0.83-4.51 [facility] Basophil percentageOrdered B y: Renard Burgos on 02-07-2022 Basophils/100 WBC (Bld) 0.4 % 0-1 [facility] Eosinophils/100 WBC (Bld) 0.3 % 0-5 [facility] Neutrophils (Bld) [#/Vol] 4.2 10*3/uL 2.0-7.7 [facility] Neutrophils/100 WBC (Bld) 61.8 % 47-70 [facility] WBC (Bld) [#/Vol] 6.8 10*3/uL 4.4-11.0 [facility] Blood erythrocytes count (nu mber/volume)Ordered By: Renard Burgos on 02-07-2022 RBC (Bld) [#/Vol] 4.86 10*6/uL 4.6-6.2 [facility] Blood hemoglobin measurement (mass/volume)Ordered By: Renard Burgos on 02-07-2022 Hemoglobin (Bld) [Mass/Vol] 15.4 g/dL 13.0-16.5 [facility] Blood lymphocytes/100 leukoc ytesOrdered By: Renard Burgos on 02-07-2022 Lymphocytes/100 WBC (Bld) 29.1 % 19-41 [facility] Blood monocytes/100 leukocyt esOrdered By: Renard Burgos on 02-07-2022 Monocytes/100 WBC (Bld) 8.1 % 0-10 [facility] Blood platelet mean volumeOr dered By: Renard Burgos on 02-07-2022 Platelet mean volume (Bld) [Entitic vol] 11.0 fL 6.2-12.0 [facility] Determination of erythrocyte mean corpuscular volume (MCV)Ordered By: Renard Burgos on 02-07-2022 MCV (RBC) [Entitic vol] 92.6 fL 80-94 [facility] Hematocrit Auto (Bld) [Volum e fraction]Ordered By: Renard Burgos on 02-07-2022 Hematocrit (Bld) [Volume fraction] 45.0 % 40-54 [facility] - Hematology and Cell countsOrdered By: Renard Burgos on 02-07-2022 Erythrocyte distribution width (RBC) [Entitic vol] 43.1 fL 35.1-43.9 [facility] Erythrocyte distribution width (RBC) [Ratio] 12.7 % 11.6-14.6 [facility] Immature granulocytes/100 WBC (Bld) 0.300 % 0.0-0.9 [facility] Comment on above: IG% - Immature Granu locytes (promyelocytes, myelocytes and metamyelocytes) > 1% indicates that a LEFT SHIFT is Present. MCH (RBC) [Entitic mass] 31.7 pg 27.0-32.0 [facility] Nucleated RBC/100 WBC (Bld) [Ratio] 0 % 0-5 [facility] MCHC Auto (RBC) [Mass/Vol]Or dered By: Renard Burgos on 02-07-2022 MCHC (RBC) [Mass/Vol] 34.2 g/dL 32-36 [facility] Platelets bldOrdered By: Lyubov Burgos on 02-07-2022 Platelets (Bld) [#/Vol] 196 10*3/uL 150-450 [facility] Absolute lymphocyte countOrd ered By: Renard Burgos on 01-31-2022 Lymphocytes Auto (Unsp spec) [#/Vol] 2.19 10*3/uL 0.83-4.51 [facility] Basophil percentageOrdered B y: Renard Burgos on 01-31-2022 Basophils/100 WBC (Bld) 0.3 % 0-1 [facility] Eosinophils/100 WBC (Bld) 0.2 % 0-5 [facility] Neutrophils (Bld) [#/Vol] 5.7 10*3/uL 2.0-7.7 [facility] Neutrophils/100 WBC (Bld) 64.9 % 47-70 [facility] WBC (Bld) [#/Vol] 8.8 10*3/uL 4.4-11.0 [facility] Blood erythrocytes count (nu mber/volume)Ordered By: Renard Burgos on 01-31-2022 RBC (Bld) [#/Vol] 4.81 10*6/uL 4.6-6.2 [facility] Blood hemoglobin measurement (mass/volume)Ordered By: Renard Burgos on 01-31-2022 Hemoglobin (Bld) [Mass/Vol] 14.9 g/dL 13.0-16.5 [facility] Blood lymphocytes/100 leukoc ytesOrdered By: Renard Burgos on 01-31-2022 Lymphocytes/100 WBC (Bld) 24.9 % 19-41 [facility] Blood monocytes/100 leukocyt esOrdered By: Renard Burgos on 01-31-2022 Monocytes/100 WBC (Bld) 9.2 % 0-10 [facility] Blood platelet mean volumeOr dered By: Renard Burgos on 01-31-2022 Platelet mean volume (Bld) [Entitic vol] 11.0 fL 6.2-12.0 [facility] Determination of erythrocyte mean corpuscular volume (MCV)Ordered By: Renard Burgos on 01-31-2022 MCV (RBC) [Entitic vol] 92.9 fL 80-94 [facility] Hematocrit Auto (Bld) [Volum e fraction]Ordered By: Renard Burgos on 01-31-2022 Hematocrit (Bld) [Volume fraction] 44.7 % 40-54 [facility] - Hematology and Cell countsOrdered By: Renard Burgos on 01-31-2022 Erythrocyte distribution width (RBC) [Entitic vol] 42.9 fL 35.1-43.9 [facility] Erythrocyte distribution width (RBC) [Ratio] 12.6 % 11.6-14.6 [facility] Immature granulocytes/100 WBC (Bld) 0.500 % 0.0-0.9 [facility] Comment on above: IG% - Immature Granu locytes (promyelocytes, myelocytes and metamyelocytes) > 1% indicates that a LEFT SHIFT is Present. MCH (RBC) [Entitic mass] 31.0 pg 27.0-32.0 [facility] Nucleated RBC/100 WBC (Bld) [Ratio] 0 % 0-5 [facility] MCHC Auto (RBC) [Mass/Vol]Or dered By: Renard Burgos on 01-31-2022 MCHC (RBC) [Mass/Vol] 33.3 g/dL 32-36 [facility] Platelets bldOrdered By: Lyubov Burgos on 01-31-2022 Platelets (Bld) [#/Vol] 204 10*3/uL 150-450 [facility] Absolute lymphocyte countOrd ered By: Renard Burgos on 01-24-2022 Lymphocytes Auto (Unsp spec) [#/Vol] 1.82 10*3/uL 0.83-4.51 [facility] Basophil percentageOrdered B y: Renard Burgos on 01-24-2022 Basophils/100 WBC (Bld) 0.3 % 0-1 [facility] Eosinophils/100 WBC (Bld) 0.3 % 0-5 [facility] Neutrophils (Bld) [#/Vol] 6.1 10*3/uL 2.0-7.7 [facility] Neutrophils/100 WBC (Bld) 69.9 % 47-70 [facility] WBC (Bld) [#/Vol] 8.7 10*3/uL 4.4-11.0 [facility] Blood erythrocytes count (nu mber/volume)Ordered By: Renard Burgos on 01-24-2022 RBC (Bld) [#/Vol] 4.74 10*6/uL 4.6-6.2 [facility] Blood hemoglobin measurement (mass/volume)Ordered By: Renard Burgos on 01-24-2022 Hemoglobin (Bld) [Mass/Vol] 14.5 g/dL 13.0-16.5 [facility] Blood lymphocytes/100 leukoc ytesOrdered By: Renard Burgos on 01-24-2022 Lymphocytes/100 WBC (Bld) 20.9 % 19-41 [facility] Blood monocytes/100 leukocyt esOrdered By: Renard Burgos on 01-24-2022 Monocytes/100 WBC (Bld) 8.4 % 0-10 [facility] Blood platelet mean volumeOr dered By: Renard Burgos on 01-24-2022 Platelet mean volume (Bld) [Entitic vol] 10.9 fL 6.2-12.0 [facility] Determination of erythrocyte mean corpuscular volume (MCV)Ordered By: Renard Burgos on 01-24-2022 MCV (RBC) [Entitic vol] 92.0 fL 80-94 [facility] Hematocrit Auto (Bld) [Volum e fraction]Ordered By: Renard Burgos on 01-24-2022 Hematocrit (Bld) [Volume fraction] 43.6 % 40-54 [facility] - Hematology and Cell countsOrdered By: Renard Burgos on 01-24-2022 Erythrocyte distribution width (RBC) [Entitic vol] 42.3 fL 35.1-43.9 [facility] Erythrocyte distribution width (RBC) [Ratio] 12.5 % 11.6-14.6 [facility] Immature granulocytes/100 WBC (Bld) 0.200 % 0.0-0.9 [facility] Comment on above: IG% - Immature Granu locytes (promyelocytes, myelocytes and metamyelocytes) > 1% indicates that a LEFT SHIFT is Present. MCH (RBC) [Entitic mass] 30.6 pg 27.0-32.0 [facility] Nucleated RBC/100 WBC (Bld) [Ratio] 0 % 0-5 [facility] MCHC Auto (RBC) [Mass/Vol]Or dered By: Renard Burgos on 01-24-2022 MCHC (RBC) [Mass/Vol] 33.3 g/dL 32-36 [facility] Platelets bldOrdered By: Lyubov Burgos on 01-24-2022 Platelets (Bld) [#/Vol] 192 10*3/uL 150-450 [facility] Absolute lymphocyte counton 01-17-2022 Lymphocytes Auto (Unsp spec) [#/Vol] 1.89 10*3/uL 0.83-4.51 [facility] Work Phone: [phone] Basophil percentageon 2021 Basophils/100 WBC (Bld) 0.4 % 0-1 [facility] Work Phone: Eosinophils/100 WBC (Bld) 0.3 % 0-5 [facility] Work Phone: Neutrophils (Bld) [#/Vol] 4.4 10*3/uL 2.0-7.7 [facility] Work Phone: Neutrophils/100 WBC (Bld) 62.4 % 47-70 [facility] Work Phone: WBC (Bld) [#/Vol] 7.0 10*3/uL 4.4-11.0 [facility] Work Phone: Blood erythrocytes count (nu mber/volume)on 01-17-2022 RBC (Bld) [#/Vol] 4.64 10*6/uL 4.6-6.2 [facility] Work [facility]: Blood hemoglobin measurement (mass/volume)on 01-17-2022 Hemoglobin (Bld) [Mass/Vol] 14.1 g/dL 13.0-16.5 [facility] Work Phone: Blood lymphocytes/100 leukoc yteson 01-17-2022 Lymphocytes/100 WBC (Bld) 27.0 % 19-41 [facility] Work Phone: Blood monocytes/100 leukocyt eson 01-17-2022 Monocytes/100 WBC (Bld) 9.3 % 0-10 [facility] Work Phone: Blood platelet mean volumeon 01-17-2022 Platelet mean volume (Bld) [Entitic vol] 11.1 fL 6.2-12.0 [facility] Work Phone: Determination of erythrocyte mean corpuscular volume (MCV)on 01-17-2022 MCV (RBC) [Entitic vol] 91.8 fL 80-94 [facility] Work Phone: Hematocrit Auto (Bld) [Volum e fraction]on 01-17-2022 Hematocrit (Bld) [Volume fraction] 42.6 % 40-54 [facility] Work Phone: Laboratory - Hematology and Cell countson 01-17-2022 Erythrocyte distribution width (RBC) [Entitic vol] 41.5 fL 35.1-43.9 [facility] Work Phone: Erythrocyte distribution width (RBC) [Ratio] 12.5 % 11.6-14.6 [facility] Work Phone: Immature granulocytes/100 WBC (Bld) 0.600 % 0.0-0.9 [facility] Work Phone: Comment on above: IG% - Immature Granu locytes (promyelocytes, myelocytes and metamyelocytes) > 1% indicates that a LEFT SHIFT is Present. MCH (RBC) [Entitic mass] 30.4 pg 27.0-32.0 [facility] Work Phone: Nucleated RBC/100 WBC (Bld) [Ratio] 0 % 0-5 [facility] Work Phone: MCHC Auto (RBC) [Mass/Vol]on 01-17-2022 MCHC (RBC) [Mass/Vol] 33.1 g/dL 32-36 [facility] Work Phone: Platelets bldon 01-17-2022 Platelets (Bld) [#/Vol] 200 10*3/uL 150-450 [facility] Work Phone: [phone] Absolute lymphocyte counton 01-10-2022 Lymphocytes Auto (Unsp spec) [#/Vol] 2.07 10*3/uL 0.83-4.51 [facility] Work Phone: Basophil percentageon 2021 Basophils/100 WBC (Bld) 0.6 % 0-1 [facility] Work Phone: Eosinophils/100 WBC (Bld) 0.3 % 0-5 [facility] Work Phone: Neutrophils (Bld) [#/Vol] 4.2 10*3/uL 2.0-7.7 [facility] Work Phone: Neutrophils/100 WBC (Bld) 59.2 % 47-70 [facility] Work Phone: WBC (Bld) [#/Vol] 7.0 10*3/uL 4.4-11.0 [facility] Blood erythrocytes count (nu mber/volume)on 01-10-2022 RBC (Bld) [#/Vol] 4.83 10*6/uL 4.6-6.2 [facility] Work Phone: Blood hemoglobin measurement (mass/volume)on 01-10-2022 Hemoglobin (Bld) [Mass/Vol] 14.8 g/dL 13.0-16.5 [facility] Work Phone: Blood lymphocytes/100 leukoc yteson 01-10-2022 Lymphocytes/100 WBC (Bld) 29.5 % 19-41 [facility] Work Phone: Blood monocytes/100 leukocyt eson 01-10-2022 Monocytes/100 WBC (Bld) 10.1 % 0-10 [facility] Work Phone: Blood platelet mean volumeon 01-10-2022 Platelet mean volume (Bld) [Entitic vol] 10.8 fL 6.2-12.0 [facility] Work Phone: Determination of erythrocyte mean corpuscular volume (MCV)on 01-10-2022 MCV (RBC) [Entitic vol] 97.5 fL 80-94 [facility] Work Phone: Hematocrit Auto (Bld) [Volum e fraction]on 01-10-2022 Hematocrit (Bld) [Volume fraction] 47.1 % 40-54 [facility] Work Phone: Laboratory - Hematology and Cell countson 01-10-2022 Erythrocyte distribution width (RBC) [Entitic vol] 44.9 fL 35.1-43.9 [facility] Work Phone: Erythrocyte distribution width (RBC) [Ratio] 12.7 % 11.6-14.6 [facility] Work Phone: Immature granulocytes/100 WBC (Bld) 0.300 % 0.0-0.9 [facility] Work Phone: Comment on above: IG% - Immature Granu locytes (promyelocytes, myelocytes and metamyelocytes) > 1% indicates that a LEFT SHIFT is Present. MCH (RBC) [Entitic mass] 30.6 pg 27.0-32.0 [facility] Work Phone: Nucleated RBC/100 WBC (Bld) [Ratio] 0 % 0-5 [facility] Work Phone: MCHC Auto (RBC) [Mass/Vol]on 01-10-2022 MCHC (RBC) [Mass/Vol] 31.4 g/dL 32-36 [facility] Work Phone: [phone] Platelets bldon 01-10-2022 Platelets (Bld) [#/Vol] 169 10*3/uL 150-450 [facility] Work Phone: [phone] Absolute lymphocyte counton 01-04-2022 Lymphocytes Auto (Unsp spec) [#/Vol] 1.84 10*3/uL 0.83-4.51 [facility] Work Phone: Basophil percentageon 2021 Basophils/100 WBC (Bld) 0.3 % 0-1 [facility] Work Phone: Eosinophils/100 WBC (Bld) 0.3 % 0-5 [facility] Work Phone: Neutrophils (Bld) [#/Vol] 4.8 10*3/uL 2.0-7.7 [facility] Work Phone: Neutrophils/100 WBC (Bld) 64.8 % 47-70 [facility] Work Phone: [phone] WBC (Bld) [#/Vol] 7.4 10*3/uL 4.4-11.0 [facility] Work Phone: Blood erythrocytes count (nu mber/volume)on 01-04-2022 RBC (Bld) [#/Vol] 4.67 10*6/uL 4.6-6.2 [facility] Work Phone: Blood hemoglobin measurement (mass/volume)on 01-04-2022 Hemoglobin (Bld) [Mass/Vol] 14.2 g/dL 13.0-16.5 [facility] Work Phone: [phone] Blood lymphocytes/100 leukoc yteson 01-04-2022 Lymphocytes/100 WBC (Bld) 25.0 % 19-41 [facility] Work Phone: Blood monocytes/100 leukocyt eson 01-04-2022 Monocytes/100 WBC (Bld) 9.1 % 0-10 [facility] Work Phone: Blood platelet mean volumeon 01-04-2022 Platelet mean volume (Bld) [Entitic vol] 11.0 fL 6.2-12.0 [facility] Work Phone: Determination of erythrocyte mean corpuscular volume (MCV)on 01-04-2022 MCV (RBC) [Entitic vol] 91.0 fL 80-94 [facility] Work Phone: Hematocrit Auto (Bld) [Volum e fraction]on 01-04-2022 Hematocrit (Bld) [Volume fraction] 42.5 % 40-54 [facility] Work Phone: Laboratory - Hematology and Cell countson 01-04-2022 Erythrocyte distribution width (RBC) [Entitic vol] 41.4 fL 35.1-43.9 [facility] Work Phone: Erythrocyte distribution width (RBC) [Ratio] 12.7 % 11.6-14.6 [facility] Work Phone: Immature granulocytes/100 WBC (Bld) 0.500 % 0.0-0.9 [facility] Work Phone: Comment on above: IG% - Immature Granu locytes (promyelocytes, myelocytes and metamyelocytes) > 1% indicates that a LEFT SHIFT is Present. MCH (RBC) [Entitic mass] 30.4 pg 27.0-32.0 [facility] Work Phone: Nucleated RBC/100 WBC (Bld) [Ratio] 0 % 0-5 [facility] Work Phone: MCHC Auto (RBC) [Mass/Vol]on 01-04-2022 MCHC (RBC) [Mass/Vol] 33.4 g/dL 32-36 [facility] Work Phone: Platelets bldon 01-04-2022 Platelets (Bld) [#/Vol] 184 10*3/uL 150-450 [facility] Work Phone: Absolute lymphocyte counton 12-27-2021 Lymphocytes Auto (Unsp spec) [#/Vol] 1.79 10*3/uL 0.83-4.51 [facility] Work Phone: Basophil percentageon 2021 Basophils/100 WBC (Bld) 0.4 % 0-1 [facility] Work Phone: [phone] Eosinophils/100 WBC (Bld) 0.4 % 0-5 [facility] Work Phone: Neutrophils (Bld) [#/Vol] 4.9 10*3/uL 2.0-7.7 [facility] Work Phone: Neutrophils/100 WBC (Bld) 65.2 % 47-70 [facility] Work Phone: WBC (Bld) [#/Vol] 7.6 10*3/uL 4.4-11.0 [facility] Work Phone: Blood erythrocytes count (nu mber/volume)on 12-27-2021 RBC (Bld) [#/Vol] 4.66 10*6/uL 4.6-6.2 [facility] [place] Work Phone: Blood hemoglobin measurement (mass/volume)on 12-27-2021 Hemoglobin (Bld) [Mass/Vol] 14.5 g/dL 13.0-16.5 [facility] Work Phone: Blood lymphocytes/100 leukoc yteson 12-27-2021 Lymphocytes/100 WBC (Bld) 23.6 % 19-41 [facility] Work Phone: [phone] Blood monocytes/100 leukocyt eson 12-27-2021 Monocytes/100 WBC (Bld) 10.0 % 0-10 [facility] Work Phone: Blood platelet mean volumeon 12-27-2021 Platelet mean volume (Bld) [Entitic vol] 10.9 fL 6.2-12.0 [facility] Work Phone: Determination of erythrocyte mean corpuscular volume (MCV)on 12-27-2021 MCV (RBC) [Entitic vol] 91.0 fL 80-94 [facility] Work Phone: Hematocrit Auto (Bld) [Volum e fraction]on 12-27-2021 Hematocrit (Bld) [Volume fraction] 42.4 % 40-54 [facility] Work Phone: Laboratory - Hematology and Cell countson 12-27-2021 Erythrocyte distribution width (RBC) [Entitic vol] 41.2 fL 35.1-43.9 [facility] Work Phone: Erythrocyte distribution width (RBC) [Ratio] 12.6 % 11.6-14.6 [facility] Work Phone: Immature granulocytes/100 WBC (Bld) 0.400 % 0.0-0.9 [facility] Work Phone: Comment on above: IG% - Immature Granu locytes (promyelocytes, myelocytes and metamyelocytes) > 1% indicates that a LEFT SHIFT is Present. MCH (RBC) [Entitic mass] 31.1 pg 27.0-32.0 [facility] Work Phone: Nucleated RBC/100 WBC (Bld) [Ratio] 0 % 0-5 [facility] Work Phone: MCHC Auto (RBC) [Mass/Vol]on 12-27-2021 MCHC (RBC) [Mass/Vol] 34.2 g/dL 32-36 [facility] Work Phone: Platelets bldon 12-27-2021 Platelets (Bld) [#/Vol] 185 10*3/uL 150-450 [facility] Work Phone: Absolute lymphocyte counton 12-20-2021 Lymphocytes Auto (Unsp spec) [#/Vol] 2.02 10*3/uL 0.83-4.51 [facility] Work Phone: [phone] Basophil percentageon 2021 Basophils/100 WBC (Bld) 0.2 % 0-1 [facility] Work Phone: [phone] Eosinophils/100 WBC (Bld) 0.3 % 0-5 [facility] Work Phone: [phone] Neutrophils (Bld) [#/Vol] 3.6 10*3/uL 2.0-7.7 [facility] Work Phone: [phone] Neutrophils/100 WBC (Bld) 57.8 % 47-70 [facility] Work Phone: [phone] WBC (Bld) [#/Vol] 6.1 10*3/uL 4.4-11.0 [facility] Work [facility]: Blood erythrocytes count (nu mber/volume)on 12-20-2021 RBC (Bld) [#/Vol] 4.81 10*6/uL 4.6-6.2 [facility] [place] Work Phone: Blood hemoglobin measurement (mass/volume)on 12-20-2021 Hemoglobin (Bld) [Mass/Vol] 14.8 g/dL 13.0-16.5 [facility] Work Phone: [phone] Blood lymphocytes/100 leukoc yteson 12-20-2021 Lymphocytes/100 WBC (Bld) 32.9 % 19-41 [facility] Work Phone: [phone] Blood monocytes/100 leukocyt eson 12-20-2021 Monocytes/100 WBC (Bld) 8.3 % 0-10 [facility] Work Phone: [phone] Blood platelet adequacy dete ction by light microscopyon 12-20-2021 Platelets LM Ql (Bld) ADEQUATE ADEQ [facility] Work Phone: [phone] Blood platelet mean volumeon 12-20-2021 Platelet mean volume (Bld) [Entitic vol] 11.1 fL 6.2-12.0 [facility] Work Phone: Determination of erythrocyte mean corpuscular volume (MCV)on 12-20-2021 MCV (RBC) [Entitic vol] 93.1 fL 80-94 [facility] Work Phone: Hematocrit Auto (Bld) [Volum e fraction]on 12-20-2021 Hematocrit (Bld) [Volume fraction] 44.8 % 40-54 [facility] Work Phone: Laboratory - Hematology and Cell countson 12-20-2021 Erythrocyte distribution width (RBC) [Entitic vol] 42.4 fL 35.1-43.9 [facility] Work Phone: Erythrocyte distribution width (RBC) [Ratio] 12.4 % 11.6-14.6 [facility] Work Phone: Immature granulocytes/100 WBC (Bld) 0.500 % 0.0-0.9 [facility] Work Phone: Comment on above: IG% - Immature Granu locytes (promyelocytes, myelocytes and metamyelocytes) > 1% indicates that a LEFT SHIFT is Present. MCH (RBC) [Entitic mass] 30.8 pg 27.0-32.0 [facility] Work Phone: Nucleated RBC/100 WBC (Bld) [Ratio] 0 % 0-5 [facility] Work Phone: MCHC Auto (RBC) [Mass/Vol]on 12-20-2021 MCHC (RBC) [Mass/Vol] 33.0 g/dL 32-36 [facility] Work Phone: Platelets bldon 12-20-2021 Platelets (Bld) [#/Vol] See comment 150-450 [facility] Work Phone: Comment on above: Please [...] Auto (Unsp spec) [#/Vol] 1.88 10*3/uL 0.83-4.51 [facility] Work Phone: Basophil percentageon 2021 Basophils/100 WBC (Bld) 0.6 % 0-1 [facility] Work Phone: Eosinophils/100 WBC (Bld) 0.3 % 0-5 [facility] Work Phone: Neutrophils (Bld) [#/Vol] 4.5 10*3/uL 2.0-7.7 [facility] Work Phone: Neutrophils/100 WBC (Bld) 63.6 % 47-70 [facility] Work Phone: WBC (Bld) [#/Vol] 7.1 10*3/uL 4.4-11.0 [facility] Work Phone: Blood erythrocytes count (nu mber/volume)on 12-13-2021 RBC (Bld) [#/Vol] 4.70 10*6/uL 4.6-6.2 [facility] [place] Work Phone: Blood hemoglobin measurement (mass/volume)on 12-13-2021 Hemoglobin (Bld) [Mass/Vol] 14.4 g/dL 13.0-16.5 [facility] Work Phone: Blood lymphocytes/100 leukoc yteson 12-13-2021 Lymphocytes/100 WBC (Bld) 26.7 % 19-41 [facility] Work Phone: Blood monocytes/100 leukocyt eson 12-13-2021 Monocytes/100 WBC (Bld) 8.5 % 0-10 [facility] Work Phone: Blood platelet mean volumeon 12-13-2021 Platelet mean volume (Bld) [Entitic vol] 10.9 fL 6.2-12.0 [facility] Work Phone: [phone] Determination of erythrocyte mean corpuscular volume (MCV)on 12-13-2021 MCV (RBC) [Entitic vol] 90.9 fL 80-94 [facility] Work Phone: Hematocrit Auto (Bld) [Volum e fraction]on 12-13-2021 Hematocrit (Bld) [Volume fraction] 42.7 % 40-54 [facility] Work Phone: Laboratory - Hematology and Cell countson 12-13-2021 Erythrocyte distribution width (RBC) [Entitic vol] 42.1 fL 35.1-43.9 [facility] Work Phone: Erythrocyte distribution width (RBC) [Ratio] 12.6 % 11.6-14.6 [facility] Work Phone: Immature granulocytes/100 WBC (Bld) 0.300 % 0.0-0.9 [facility] Work Phone: Comment on above: IG% - Immature Granu locytes (promyelocytes, myelocytes and metamyelocytes) > 1% indicates that a LEFT SHIFT is Present. MCH (RBC) [Entitic mass] 30.6 pg 27.0-32.0 [facility] Work Phone: Nucleated RBC/100 WBC (Bld) [Ratio] 0 % 0-5 [facility] Work Phone: MCHC Auto (RBC) [Mass/Vol]on 12-13-2021 MCHC (RBC) [Mass/Vol] 33.7 g/dL 32-36 [facility] Work Phone: Platelets bldon 12-13-2021 Platelets (Bld) [#/Vol] 194 10*3/uL 150-450 [facility] Work Phone: Absolute lymphocyte counton 12-06-2021 Lymphocytes Auto (Unsp spec) [#/Vol] 1.91 10*3/uL 0.83-4.51 [facility] Work Phone: Basophil percentageon 2021 Basophils/100 WBC (Bld) 0.4 % 0-1 [facility] Work Phone: [phone] Eosinophils/100 WBC (Bld) 0.3 % 0-5 [facility] Work Phone: Neutrophils (Bld) [#/Vol] 4.4 10*3/uL 2.0-7.7 [facility] Work Phone: Neutrophils/100 WBC (Bld) 62.2 % 47-70 [facility] Work Phone: WBC (Bld) [#/Vol] 7.0 10*3/uL 4.4-11.0 [facility] Work Phone: Blood erythrocytes count (nu mber/volume)on 12-06-2021 RBC (Bld) [#/Vol] 4.58 10*6/uL 4.6-6.2 [facility] [place] Work Phone: [phone] Blood hemoglobin measurement (mass/volume)on 12-06-2021 Hemoglobin (Bld) [Mass/Vol] 13.8 g/dL 13.0-16.5 [facility] Work Phone: Blood lymphocytes/100 leukoc yteson 12-06-2021 Lymphocytes/100 WBC (Bld) 27.2 % 19-41 [facility] Work Phone: Blood monocytes/100 leukocyt eson 12-06-2021 Monocytes/100 WBC (Bld) 9.6 % 0-10 [facility] Work Phone: Blood platelet mean volumeon 12-06-2021 Platelet mean volume (Bld) [Entitic vol] 11.1 fL 6.2-12.0 [facility] Work Phone: Determination of erythrocyte mean corpuscular volume (MCV)on 12-06-2021 MCV (RBC) [Entitic vol] 92.1 fL 80-94 [facility] Work Phone: Hematocrit Auto (Bld) [Volum e fraction]on 12-06-2021 Hematocrit (Bld) [Volume fraction] 42.2 % 40-54 [facility] Work Phone: [phone] Laboratory - Hematology and Cell countson 12-06-2021 Erythrocyte distribution width (RBC) [Entitic vol] 42.1 fL 35.1-43.9 [facility] Work Phone: Erythrocyte distribution width (RBC) [Ratio] 12.6 % 11.6-14.6 [facility] Work Phone: Immature granulocytes/100 WBC (Bld) 0.300 % 0.0-0.9 [facility] Work Phone: Comment on above: IG% - Immature Granu locytes (promyelocytes, myelocytes and metamyelocytes) > 1% indicates that a LEFT SHIFT is Present. MCH (RBC) [Entitic mass] 30.1 pg 27.0-32.0 [facility] Work Phone: [phone] Nucleated RBC/100 WBC (Bld) [Ratio] 0 % 0-5 [facility] Work Phone: MCHC Auto (RBC) [Mass/Vol]on 12-06-2021 MCHC (RBC) [Mass/Vol] 32.7 g/dL 32-36 [facility] Work Phone: Platelets bldon 12-06-2021 Platelets (Bld) [#/Vol] 180 10*3/uL 150-450 [facility] Work Phone: [phone] Absolute lymphocyte counton 11-29-2021 Lymphocytes Auto (Unsp spec) [#/Vol] 2.00 10*3/uL 0.83-4.51 [facility] Work Phone: Basophil percentageon 2021 Basophils/100 WBC (Bld) 0.4 % 0-1 [facility] Work Phone: Eosinophils/100 WBC (Bld) 0.3 % 0-5 [facility] Work Phone: Neutrophils (Bld) [#/Vol] 4.4 10*3/uL 2.0-7.7 [facility] Work Phone: Neutrophils/100 WBC (Bld) 62.8 % 47-70 [facility] Work Phone: WBC (Bld) [#/Vol] 7.0 10*3/uL 4.4-11.0 [facility] Work Phone: Blood erythrocytes count (nu mber/volume)on 11-29-2021 RBC (Bld) [#/Vol] 4.72 10*6/uL 4.6-6.2 [facility] Work Phone: Blood hemoglobin measurement (mass/volume)on 11-29-2021 Hemoglobin (Bld) [Mass/Vol] 14.6 g/dL 13.0-16.5 [facility] Work Phone: Blood lymphocytes/100 leukoc yteson 11-29-2021 Lymphocytes/100 WBC (Bld) 28.6 % 19-41 [facility] Work Phone: Blood monocytes/100 leukocyt eson 11-29-2021 Monocytes/100 WBC (Bld) 7.6 % 0-10 [facility] Work Phone: Blood platelet mean volumeon 11-29-2021 Platelet mean volume (Bld) [Entitic vol] 11.1 fL 6.2-12.0 [facility] Work Phone: Determination of erythrocyte mean corpuscular volume (MCV)on 11-29-2021 MCV (RBC) [Entitic vol] 91.9 fL 80-94 [facility] Work Phone: Hematocrit Auto (Bld) [Volum e fraction]on 11-29-2021 Hematocrit (Bld) [Volume fraction] 43.4 % 40-54 [facility] Work Phone: Laboratory - Hematology and Cell countson 11-29-2021 Erythrocyte distribution width (RBC) [Entitic vol] 41.8 fL 35.1-43.9 [facility] Work Phone: Erythrocyte distribution width (RBC) [Ratio] 12.4 % 11.6-14.6 [facility] Work Phone: Immature granulocytes/100 WBC (Bld) 0.300 % 0.0-0.9 [facility] Work Phone: Comment on above: IG% - Immature Granu locytes (promyelocytes, myelocytes and metamyelocytes) > 1% indicates that a LEFT SHIFT is Present. MCH (RBC) [Entitic mass] 30.9 pg 27.0-32.0 [facility] Work Phone: Nucleated RBC/100 WBC (Bld) [Ratio] 0 % 0-5 [facility] Work Phone: MCHC Auto (RBC) [Mass/Vol]on 11-29-2021 MCHC (RBC) [Mass/Vol] 33.6 g/dL 32-36 [facility] Work Phone: Platelets bldon 11-29-2021 Platelets (Bld) [#/Vol] 205 10*3/uL 150-450 [facility] Work Phone: Absolute lymphocyte counton 11-22-2021 Lymphocytes Auto (Unsp spec) [#/Vol] 2.25 10*3/uL 0.83-4.51 [facility] Work Phone: Basophil percentageon 2021 Basophils/100 WBC (Bld) 0.4 % 0-1 [facility] Work Phone: Eosinophils/100 WBC (Bld) 0.4 % 0-5 [facility] Work Phone: Neutrophils (Bld) [#/Vol] 5.1 10*3/uL 2.0-7.7 [facility] Work Phone: Neutrophils/100 WBC (Bld) 61.7 % 47-70 [facility] Work Phone: WBC (Bld) [#/Vol] 8.3 10*3/uL 4.4-11.0 [facility] Work Phone: Blood erythrocytes count (nu mber/volume)on 11-22-2021 RBC (Bld) [#/Vol] 4.47 10*6/uL 4.6-6.2 [facility] [place] Work Phone: Blood hemoglobin measurement (mass/volume)on 11-22-2021 Hemoglobin (Bld) [Mass/Vol] 13.5 g/dL 13.0-16.5 [facility] Work Phone: Blood lymphocytes/100 leukoc yteson 11-22-2021 Lymphocytes/100 WBC (Bld) 27.2 % 19-41 [facility] Work Phone: Blood monocytes/100 leukocyt eson 11-22-2021 Monocytes/100 WBC (Bld) 9.9 % 0-10 [facility] Work Phone: Blood platelet mean volumeon 11-22-2021 Platelet mean volume (Bld) [Entitic vol] 11.1 fL 6.2-12.0 [facility] Work Phone: Determination of erythrocyte mean corpuscular volume (MCV)on 11-22-2021 MCV (RBC) [Entitic vol] 92.2 fL 80-94 [facility] Work Phone: Hematocrit Auto (Bld) [Volum e fraction]on 11-22-2021 Hematocrit (Bld) [Volume fraction] 41.2 % 40-54 [facility] Work Phone: Laboratory - Hematology and Cell countson 11-22-2021 Erythrocyte distribution width (RBC) [Entitic vol] 42.3 fL 35.1-43.9 [facility] Work Phone: Erythrocyte distribution width (RBC) [Ratio] 12.6 % 11.6-14.6 [facility] Work Phone: Immature granulocytes/100 WBC (Bld) 0.400 % 0.0-0.9 [facility] Work Phone: Comment on above: IG% - Immature Granu locytes (promyelocytes, myelocytes and metamyelocytes) > 1% indicates that a LEFT SHIFT is Present. MCH (RBC) [Entitic mass] 30.2 pg 27.0-32.0 [facility] Work Phone: Nucleated RBC/100 WBC (Bld) [Ratio] 0 % 0-5 [facility] Work Phone: MCHC Auto (RBC) [Mass/Vol]on 11-22-2021 MCHC (RBC) [Mass/Vol] 32.8 g/dL 32-36 [facility] Work Phone: Platelets bldon 11-22-2021 Platelets (Bld) [#/Vol] 190 10*3/uL 150-450 [facility] Work Phone: Absolute lymphocyte counton 11-15-2021 Lymphocytes Auto (Unsp spec) [#/Vol] 2.09 10*3/uL 0.83-4.51 [facility] Work Phone: Basophil percentageon 2021 Basophils/100 WBC (Bld) 0.6 % 0-1 [facility] Work Phone: Eosinophils/100 WBC (Bld) 0.4 % 0-5 [facility] Work Phone: Neutrophils (Bld) [#/Vol] 4.2 10*3/uL 2.0-7.7 [facility] Work Phone: Neutrophils/100 WBC (Bld) 59.1 % 47-70 [facility] Work Phone: WBC (Bld) [#/Vol] 7.1 10*3/uL 4.4-11.0 [facility] Work Phone: Blood erythrocytes count (nu mber/volume)on 11-15-2021 RBC (Bld) [#/Vol] 4.72 10*6/uL 4.6-6.2 [facility] [place] Work Phone: [phone] Blood hemoglobin measurement (mass/volume)on 11-15-2021 Hemoglobin (Bld) [Mass/Vol] 14.6 g/dL 13.0-16.5 [facility] Work Phone: Blood lymphocytes/100 leukoc yteson 11-15-2021 Lymphocytes/100 WBC (Bld) 29.4 % 19-41 [facility] Work Phone: Blood monocytes/100 leukocyt eson 11-15-2021 Monocytes/100 WBC (Bld) 10.1 % 0-10 [facility] Work Phone: Blood platelet mean volumeon 11-15-2021 Platelet mean volume (Bld) [Entitic vol] 10.7 fL 6.2-12.0 [facility] Work Phone: Determination of erythrocyte mean corpuscular volume (MCV)on 11-15-2021 MCV (RBC) [Entitic vol] 91.9 fL 80-94 [facility] Work Phone: Hematocrit Auto (Bld) [Volum e fraction]on 11-15-2021 Hematocrit (Bld) [Volume fraction] 43.4 % 40-54 [facility] Work Phone: Laboratory - Hematology and Cell countson 11-15-2021 Erythrocyte distribution width (RBC) [Entitic vol] 41.9 fL 35.1-43.9 [facility] Work Phone: Erythrocyte distribution width (RBC) [Ratio] 12.4 % 11.6-14.6 [facility] Work Phone: Immature granulocytes/100 WBC (Bld) 0.400 % 0.0-0.9 [facility] Work Phone: Comment on above: IG% - Immature Granu locytes (promyelocytes, myelocytes and metamyelocytes) > 1% indicates that a LEFT SHIFT is Present. MCH (RBC) [Entitic mass] 30.9 pg 27.0-32.0 [facility] Work Phone: Nucleated RBC/100 WBC (Bld) [Ratio] 0 % 0-5 [facility] Work Phone: MCHC Auto (RBC) [Mass/Vol]on 11-15-2021 MCHC (RBC) [Mass/Vol] 33.6 g/dL 32-36 [facility] Work Phone: [phone] Platelets bldon 11-15-2021 Platelets (Bld) [#/Vol] 191 10*3/uL 150-450 [facility] Work Phone: Absolute lymphocyte counton 11-08-2021 Lymphocytes Auto (Unsp spec) [#/Vol] 1.97 10*3/uL 0.83-4.51 [facility] Work Phone: Basophil percentageon 2021 Basophils/100 WBC (Bld) 0.3 % 0-1 [facility] Work Phone: [phone] Eosinophils/100 WBC (Bld) 0.3 % 0-5 [facility] Work Phone: Neutrophils (Bld) [#/Vol] 5.1 10*3/uL 2.0-7.7 [facility] Work Phone: Neutrophils/100 WBC (Bld) 64.6 % 47-70 [facility] Work Phone: WBC (Bld) [#/Vol] 7.8 10*3/uL 4.4-11.0 [facility] Work Phone: Blood erythrocytes count (nu mber/volume)on 11-08-2021 RBC (Bld) [#/Vol] 4.53 10*6/uL 4.6-6.2 [facility] Work Phone: Blood hemoglobin measurement (mass/volume)on 11-08-2021 Hemoglobin (Bld) [Mass/Vol] 14.2 g/dL 13.0-16.5 [facility] Work Phone: [phone] Blood lymphocytes/100 leukoc yteson 11-08-2021 Lymphocytes/100 WBC (Bld) 25.2 % 19-41 [facility] Work Phone: Blood monocytes/100 leukocyt eson 11-08-2021 Monocytes/100 WBC (Bld) 9.3 % 0-10 [facility] Work Phone: Blood platelet mean volumeon 11-08-2021 Platelet mean volume (Bld) [Entitic vol] 10.9 fL 6.2-12.0 [facility] Work Phone: Determination of erythrocyte mean corpuscular volume (MCV)on 11-08-2021 MCV (RBC) [Entitic vol] 92.7 fL 80-94 [facility] Work Phone: Hematocrit Auto (Bld) [Volum e fraction]on 11-08-2021 Hematocrit (Bld) [Volume fraction] 42.0 % 40-54 [facility] Work Phone: Laboratory - Hematology and Cell countson 11-08-2021 Erythrocyte distribution width (RBC) [Entitic vol] 42.3 fL 35.1-43.9 [facility] Work Phone: Erythrocyte distribution width (RBC) [Ratio] 12.5 % 11.6-14.6 [facility] Work Phone: Immature granulocytes/100 WBC (Bld) 0.300 % 0.0-0.9 [facility] Work Phone: Comment on above: IG% - Immature Granu locytes (promyelocytes, myelocytes and metamyelocytes) > 1% indicates that a LEFT SHIFT is Present. MCH (RBC) [Entitic mass] 31.3 pg 27.0-32.0 [facility] Work Phone: Nucleated RBC/100 WBC (Bld) [Ratio] 0 % 0-5 [facility] Work Phone: MCHC Auto (RBC) [Mass/Vol]on 11-08-2021 MCHC (RBC) [Mass/Vol] 33.8 g/dL 32-36 [facility] Work Phone: Platelets bldon 11-08-2021 Platelets (Bld) [#/Vol] 207 10*3/uL 150-450 [facility] Work Phone: [phone] Absolute lymphocyte counton 10-25-2021 Lymphocytes Auto (Unsp spec) [#/Vol] 2.05 10*3/uL 0.83-4.51 [facility] Work Phone: [phone] Basophil percentageon 2021 Basophils/100 WBC (Bld) 0.4 % 0-1 [facility] Work Phone: Eosinophils/100 WBC (Bld) 0.3 % 0-5 [facility] Work Phone: [phone] Neutrophils (Bld) [#/Vol] 4.2 10*3/uL 2.0-7.7 [facility] Work Phone: [phone] Neutrophils/100 WBC (Bld) 61.3 % 47-70 [facility] Work Phone: [phone] WBC (Bld) [#/Vol] 6.8 10*3/uL 4.4-11.0 [facility] Work Phone: Blood erythrocytes count (nu mber/volume)on 10-25-2021 RBC (Bld) [#/Vol] 4.56 10*6/uL 4.6-6.2 [facility] Work Phone: Blood hemoglobin measurement (mass/volume)on 10-25-2021 Hemoglobin (Bld) [Mass/Vol] 13.9 g/dL 13.0-16.5 [facility] Work Phone: [phone] Blood lymphocytes/100 leukoc yteson 10-25-2021 Lymphocytes/100 WBC (Bld) 30.1 % 19-41 [facility] Work Phone: [phone] Blood monocytes/100 leukocyt eson 10-25-2021 Monocytes/100 WBC (Bld) 7.3 % 0-10 [facility] Work Phone: [phone] Blood platelet mean volumeon 10-25-2021 Platelet mean volume (Bld) [Entitic vol] 10.6 fL 6.2-12.0 [facility] Work Phone: Determination of erythrocyte mean corpuscular volume (MCV)on 10-25-2021 MCV (RBC) [Entitic vol] 91.0 fL 80-94 [facility] Work Phone: Hematocrit Auto (Bld) [Volum e fraction]on 10-25-2021 Hematocrit (Bld) [Volume fraction] 41.5 % 40-54 [facility] Work Phone: Laboratory - Hematology and Cell countson 10-25-2021 Erythrocyte distribution width (RBC) [Entitic vol] 41.7 fL 35.1-43.9 [facility] Work Phone: Erythrocyte distribution width (RBC) [Ratio] 12.6 % 11.6-14.6 [facility] Work Phone: Immature granulocytes/100 WBC (Bld) 0.600 % 0.0-0.9 [facility] Work Phone: Comment on above: IG% - Immature Granu locytes (promyelocytes, myelocytes and metamyelocytes) > 1% indicates that a LEFT SHIFT is Present. MCH (RBC) [Entitic mass] 30.5 pg 27.0-32.0 [facility] Work Phone: Nucleated RBC/100 WBC (Bld) [Ratio] 0 % 0-5 [facility] Work Phone: MCHC Auto (RBC) [Mass/Vol]on 10-25-2021 MCHC (RBC) [Mass/Vol] 33.5 g/dL 32-36 [facility] Work Phone: Platelets bldon 10-25-2021 Platelets (Bld) [#/Vol] 191 10*3/uL 150-450 [facility] Work Phone: Absolute lymphocyte counton 10-18-2021 Lymphocytes Auto (Unsp spec) [#/Vol] 1.66 10*3/uL 0.83-4.51 [facility] Work Phone: Basophil percentageon 2021 Basophils/100 WBC (Bld) 0.5 % 0-1 [facility] Work Phone: Eosinophils/100 WBC (Bld) 0.2 % 0-5 [facility] Work Phone: Neutrophils (Bld) [#/Vol] 4.3 10*3/uL 2.0-7.7 [facility] Work Phone: Neutrophils/100 WBC (Bld) 65.0 % 47-70 [facility] Work Phone: [phone] WBC (Bld) [#/Vol] 6.6 10*3/uL 4.4-11.0 [facility] Work Phone: Blood erythrocytes count (nu mber/volume)on 10-18-2021 RBC (Bld) [#/Vol] 4.57 10*6/uL 4.6-6.2 [facility] Work Phone: Blood hemoglobin measurement (mass/volume)on 10-18-2021 Hemoglobin (Bld) [Mass/Vol] 14.1 g/dL 13.0-16.5 [facility] Work Phone: Blood lymphocytes/100 leukoc yteson 10-18-2021 Lymphocytes/100 WBC (Bld) 25.2 % 19-41 [facility] Work Phone: Blood monocytes/100 leukocyt eson 10-18-2021 Monocytes/100 WBC (Bld) 8.8 % 0-10 [facility] Work Phone: Blood platelet mean volumeon 10-18-2021 Platelet mean volume (Bld) [Entitic vol] 10.6 fL 6.2-12.0 [facility] Work Phone: Determination of erythrocyte mean corpuscular volume (MCV)on 10-18-2021 MCV (RBC) [Entitic vol] 91.7 fL 80-94 [facility] Work Phone: Hematocrit Auto (Bld) [Volum e fraction]on 10-18-2021 Hematocrit (Bld) [Volume fraction] 41.9 % 40-54 [facility] Work Phone: Laboratory - Hematology and Cell countson 10-18-2021 Erythrocyte distribution width (RBC) [Entitic vol] 41.6 fL 35.1-43.9 [facility] Work Phone: Erythrocyte distribution width (RBC) [Ratio] 12.5 % 11.6-14.6 [facility] Work Phone: [phone] Immature granulocytes/100 WBC (Bld) 0.300 % 0.0-0.9 [facility] Work Phone: Comment on above: IG% - Immature Granu locytes (promyelocytes, myelocytes and metamyelocytes) > 1% indicates that a LEFT SHIFT is Present. MCH (RBC) [Entitic mass] 30.9 pg 27.0-32.0 [facility] Work Phone: Nucleated RBC/100 WBC (Bld) [Ratio] 0 % 0-5 [facility] Work Phone: MCHC Auto (RBC) [Mass/Vol]on 10-18-2021 MCHC (RBC) [Mass/Vol] 33.7 g/dL 32-36 [facility] Work Phone: [phone] Platelets bldon 10-18-2021 Platelets (Bld) [#/Vol] 185 10*3/uL 150-450 [facility] Work Phone: [phone] Absolute lymphocyte counton 10-11-2021 Lymphocytes Auto (Unsp spec) [#/Vol] 1.66 10*3/uL 0.83-4.51 [facility] Work Phone: [phone] Basophil percentageon 2021 Basophils/100 WBC (Bld) 0.5 % 0-1 [facility] Work Phone: [phone] Eosinophils/100 WBC (Bld) 0.1 % 0-5 [facility] Work Phone: Neutrophils (Bld) [#/Vol] 5.9 10*3/uL 2.0-7.7 [facility] Work Phone: Neutrophils/100 WBC (Bld) 70.8 % 47-70 [facility] Work Phone: WBC (Bld) [#/Vol] 8.3 10*3/uL 4.4-11.0 [facility]: Blood erythrocytes count (nu mber/volume)on 10-11-2021 RBC (Bld) [#/Vol] 4.66 10*6/uL 4.6-6.2 [facility] Work Phone: Blood hemoglobin measurement (mass/volume)on 10-11-2021 Hemoglobin (Bld) [Mass/Vol] 14.1 g/dL 13.0-16.5 [facility] Work Phone: Blood lymphocytes/100 leukoc yteson 10-11-2021 Lymphocytes/100 WBC (Bld) 20.0 % 19-41 [facility] Work Phone: Blood monocytes/100 leukocyt eson 10-11-2021 Monocytes/100 WBC (Bld) 8.2 % 0-10 [facility] Work Phone: Blood platelet mean volumeon 10-11-2021 Platelet mean volume (Bld) [Entitic vol] 10.7 fL 6.2-12.0 [facility] Work Phone: Determination of erythrocyte mean corpuscular volume (MCV)on 10-11-2021 MCV (RBC) [Entitic vol] 91.8 fL 80-94 [facility] Work Phone: Hematocrit Auto (Bld) [Volum e fraction]on 10-11-2021 Hematocrit (Bld) [Volume fraction] 42.8 % 40-54 [facility] Work Phone: [phone] Laboratory - Hematology and Cell countson 10-11-2021 Erythrocyte distribution width (RBC) [Entitic vol] 42.8 fL 35.1-43.9 [facility] Work Phone: Erythrocyte distribution width (RBC) [Ratio] 12.8 % 11.6-14.6 [facility] Work Phone: Immature granulocytes/100 WBC (Bld) 0.400 % 0.0-0.9 [facility] Work Phone: Comment on above: IG% - Immature Granu locytes (promyelocytes, myelocytes and metamyelocytes) > 1% indicates that a LEFT SHIFT is Present. MCH (RBC) [Entitic mass] 30.3 pg 27.0-32.0 [facility] Work Phone: Nucleated RBC/100 WBC (Bld) [Ratio] 0 % 0-5 [facility] Work Phone: MCHC Auto (RBC) [Mass/Vol]on 10-11-2021 MCHC (RBC) [Mass/Vol] 32.9 g/dL 32-36 [facility] Work [facility]: Platelets bldon 10-11-2021 Platelets (Bld) [#/Vol] 193 10*3/uL 150-450 [facility] Work Phone: Absolute lymphocyte counton 10-04-2021 Lymphocytes Auto (Unsp spec) [#/Vol] 1.97 10*3/uL 0.83-4.51 [facility] Work Phone: Basophil percentageon 2021 Basophils/100 WBC (Bld) 0.5 % 0-1 [facility] Work Phone: Eosinophils/100 WBC (Bld) 0.1 % 0-5 [facility] Work Phone: Neutrophils (Bld) [#/Vol] 5.0 10*3/uL 2.0-7.7 [facility] Work Phone: Neutrophils/100 WBC (Bld) 64.4 % 47-70 [facility] Work Phone: WBC (Bld) [#/Vol] 7.7 10*3/uL 4.4-11.0 [facility] Work [facility]: Blood erythrocytes count (nu mber/volume)on 10-04-2021 RBC (Bld) [#/Vol] 4.52 10*6/uL 4.6-6.2 [facility] [place] Work Phone: Blood hemoglobin measurement (mass/volume)on 10-04-2021 Hemoglobin (Bld) [Mass/Vol] 13.9 g/dL 13.0-16.5 [facility] Work Phone: Blood lymphocytes/100 leukoc yteson 10-04-2021 Lymphocytes/100 WBC (Bld) 25.6 % 19-41 [facility] Work Phone: Blood monocytes/100 leukocyt eson 10-04-2021 Monocytes/100 WBC (Bld) 9.0 % 0-10 [facility] Work Phone: Blood platelet mean volumeon 10-04-2021 Platelet mean volume (Bld) [Entitic vol] 11.0 fL 6.2-12.0 [facility] Work Phone: Determination of erythrocyte mean corpuscular volume (MCV)on 10-04-2021 MCV (RBC) [Entitic vol] 91.4 fL 80-94 [facility] Work Phone: Hematocrit Auto (Bld) [Volum e fraction]on 10-04-2021 Hematocrit (Bld) [Volume fraction] 41.3 % 40-54 [facility] Work Phone: Laboratory - Hematology and Cell countson 10-04-2021 Erythrocyte distribution width (RBC) [Entitic vol] 42.2 fL 35.1-43.9 [facility] Work Phone: Erythrocyte distribution width (RBC) [Ratio] 12.8 % 11.6-14.6 [facility] Work Phone: Immature granulocytes/100 WBC (Bld) 0.400 % 0.0-0.9 [facility] Work Phone: [phone] Comment on above: IG% - Immature Granu locytes (promyelocytes, myelocytes and metamyelocytes) > 1% indicates that a LEFT SHIFT is Present. MCH (RBC) [Entitic mass] 30.8 pg 27.0-32.0 [facility] Work Phone: Nucleated RBC/100 WBC (Bld) [Ratio] 0 % 0-5 [facility] Work Phone: MCHC Auto (RBC) [Mass/Vol]on 10-04-2021 MCHC (RBC) [Mass/Vol] 33.7 g/dL 32-36 [facility] Work Phone: Platelets bldon 10-04-2021 Platelets (Bld) [#/Vol] 179 10*3/uL 150-450 [facility] Work Phone: [phone] Absolute lymphocyte counton 09-28-2021 Lymphocytes Auto (Unsp spec) [#/Vol] 2.10 10*3/uL 0.83-4.51 [facility] Work Phone: Basophil percentageon 2021 Basophils/100 WBC (Bld) 0.4 % 0-1 [facility] Work Phone: Eosinophils/100 WBC (Bld) 0.3 % 0-5 [facility] Work Phone: Neutrophils (Bld) [#/Vol] 4.3 10*3/uL 2.0-7.7 [facility] Work Phone: Neutrophils/100 WBC (Bld) 59.9 % 47-70 [facility] Work Phone: WBC (Bld) [#/Vol] 7.2 10*3/uL 4.4-11.0 [facility] Work [facility]: Blood erythrocytes count (nu mber/volume)on 09-28-2021 RBC (Bld) [#/Vol] 4.34 10*6/uL 4.6-6.2 [facility] Work Phone: Blood hemoglobin measurement (mass/volume)on 09-28-2021 Hemoglobin (Bld) [Mass/Vol] 13.3 g/dL 13.0-16.5 [facility] Work Phone: Blood lymphocytes/100 leukoc yteson 09-28-2021 Lymphocytes/100 WBC (Bld) 29.3 % 19-41 [facility] Work Phone: Blood monocytes/100 leukocyt eson 09-28-2021 Monocytes/100 WBC (Bld) 9.8 % 0-10 [facility] Work Phone: Blood platelet mean volumeon 09-28-2021 Platelet mean volume (Bld) [Entitic vol] 10.7 fL 6.2-12.0 [facility] Work Phone: Determination of erythrocyte mean corpuscular volume (MCV)on 09-28-2021 MCV (RBC) [Entitic vol] 91.2 fL 80-94 [facility] Work Phone: Hematocrit Auto (Bld) [Volum e fraction]on 09-28-2021 Hematocrit (Bld) [Volume fraction] 39.6 % 40-54 [facility] Work Phone: Laboratory - Hematology and Cell countson 09-28-2021 Erythrocyte distribution width (RBC) [Entitic vol] 41.8 fL 35.1-43.9 [facility] Work Phone: Erythrocyte distribution width (RBC) [Ratio] 12.6 % 11.6-14.6 [facility] Work Phone: Immature granulocytes/100 WBC (Bld) 0.300 % 0.0-0.9 [facility] Work Phone: Comment on above: IG% - Immature Granu locytes (promyelocytes, myelocytes and metamyelocytes) > 1% indicates that a LEFT SHIFT is Present. MCH (RBC) [Entitic mass] 30.6 pg 27.0-32.0 [facility] Work Phone: Nucleated RBC/100 WBC (Bld) [Ratio] 0 % 0-5 [facility] Work Phone: [phone] MCHC Auto (RBC) [Mass/Vol]on 09-28-2021 MCHC (RBC) [Mass/Vol] 33.6 g/dL 32-36 [facility] Work Phone: [phone] Platelets bldon 09-28-2021 Platelets (Bld) [#/Vol] 181 10*3/uL 150-450 [facility] Work Phone: [phone] Absolute lymphocyte counton 09-20-2021 Lymphocytes Auto (Unsp spec) [#/Vol] 1.79 10*3/uL 0.83-4.51 [facility] Work Phone: Basophil percentageon 2021 Basophils/100 WBC (Bld) 0.4 % 0-1 [facility] Work Phone: [phone] Eosinophils/100 WBC (Bld) 0.3 % 0-5 [facility] Work Phone: Neutrophils (Bld) [#/Vol] 4.1 10*3/uL 2.0-7.7 [facility] Work Phone: Neutrophils/100 WBC (Bld) 61.3 % 47-70 [facility] Work Phone: [phone] WBC (Bld) [#/Vol] 6.7 10*3/uL 4.4-11.0 [facility] Work Phone: Blood erythrocytes count (nu mber/volume)on 09-20-2021 RBC (Bld) [#/Vol] 4.32 10*6/uL 4.6-6.2 [facility] Work Phone: Blood hemoglobin measurement (mass/volume)on 09-20-2021 Hemoglobin (Bld) [Mass/Vol] 13.6 g/dL 13.0-16.5 [facility] Work Phone: [phone] Blood lymphocytes/100 leukoc yteson 09-20-2021 Lymphocytes/100 WBC (Bld) 26.8 % 19-41 [facility] Work Phone: Blood monocytes/100 leukocyt eson 09-20-2021 Monocytes/100 WBC (Bld) 10.8 % 0-10 [facility] Work Phone: Blood platelet mean volumeon 09-20-2021 Platelet mean volume (Bld) [Entitic vol] 10.7 fL 6.2-12.0 [facility] Work Phone: Determination of erythrocyte mean corpuscular volume (MCV)on 09-20-2021 MCV (RBC) [Entitic vol] 93.1 fL 80-94 [facility] Work Phone: Hematocrit Auto (Bld) [Volum e fraction]on 09-20-2021 Hematocrit (Bld) [Volume fraction] 40.2 % 40-54 [facility] Work Phone: Laboratory - Hematology and Cell countson 09-20-2021 Erythrocyte distribution width (RBC) [Entitic vol] 43.0 fL 35.1-43.9 [facility] Work Phone: Erythrocyte distribution width (RBC) [Ratio] 12.6 % 11.6-14.6 [facility] Work Phone: Immature granulocytes/100 WBC (Bld) 0.400 % 0.0-0.9 [facility] Work Phone: Comment on above: IG% - Immature Granu locytes (promyelocytes, myelocytes and metamyelocytes) > 1% indicates that a LEFT SHIFT is Present. MCH (RBC) [Entitic mass] 31.5 pg 27.0-32.0 [facility] Work Phone: Nucleated RBC/100 WBC (Bld) [Ratio] 0 % 0-5 [facility] Work Phone: MCHC Auto (RBC) [Mass/Vol]on 09-20-2021 MCHC (RBC) [Mass/Vol] 33.8 g/dL 32-36 [facility] Work Phone: Platelets bldon 09-20-2021 Platelets (Bld) [#/Vol] 170 10*3/uL 150-450 [facility] Work Phone: [phone] Absolute lymphocyte counton 09-13-2021 Lymphocytes Auto (Unsp spec) [#/Vol] 1.85 10*3/uL 0.83-4.51 [facility] Work Phone: Basophil percentageon 2021 Basophils/100 WBC (Bld) 0.6 % 0-1 [facility] Work Phone: Eosinophils/100 WBC (Bld) 0.3 % 0-5 [facility] Work Phone: [phone] Neutrophils (Bld) [#/Vol] 4.3 10*3/uL 2.0-7.7 [facility] Work Phone: Neutrophils/100 WBC (Bld) 63.1 % 47-70 [facility] Work Phone: WBC (Bld) [#/Vol] 6.7 10*3/uL 4.4-11.0 [facility] Work Phone: Blood erythrocytes count (nu mber/volume)on 09-13-2021 RBC (Bld) [#/Vol] 4.63 10*6/uL 4.6-6.2 [facility] Work Phone: Blood hemoglobin measurement (mass/volume)on 09-13-2021 Hemoglobin (Bld) [Mass/Vol] 14.2 g/dL 13.0-16.5 [facility] Work Phone: [phone] Blood lymphocytes/100 leukoc yteson 09-13-2021 Lymphocytes/100 WBC (Bld) 27.5 % 19-41 [facility] Work Phone: Blood monocytes/100 leukocyt eson 09-13-2021 Monocytes/100 WBC (Bld) 8.2 % 0-10 [facility] Work Phone: [phone] Blood platelet mean volumeon 09-13-2021 Platelet mean volume (Bld) [Entitic vol] 11.0 fL 6.2-12.0 [facility] Work Phone: Determination of erythrocyte mean corpuscular volume (MCV)on 09-13-2021 MCV (RBC) [Entitic vol] 93.5 fL 80-94 [facility] Work Phone: Hematocrit Auto (Bld) [Volum e fraction]on 09-13-2021 Hematocrit (Bld) [Volume fraction] 43.3 % 40-54 [facility] Work Phone: Laboratory - Hematology and Cell countson 09-13-2021 Erythrocyte distribution width (RBC) [Entitic vol] 43.0 fL 35.1-43.9 [facility] Work Phone: Erythrocyte distribution width (RBC) [Ratio] 12.6 % 11.6-14.6 [facility] Work Phone: Immature granulocytes/100 WBC (Bld) 0.300 % 0.0-0.9 [facility] Work Phone: Comment on above: IG% - Immature Granu locytes (promyelocytes, myelocytes and metamyelocytes) > 1% indicates that a LEFT SHIFT is Present. MCH (RBC) [Entitic mass] 30.7 pg 27.0-32.0 [facility] Work Phone: Nucleated RBC/100 WBC (Bld) [Ratio] 0 % 0-5 [facility] Work Phone: MCHC Auto (RBC) [Mass/Vol]on 09-13-2021 MCHC (RBC) [Mass/Vol] 32.8 g/dL 32-36 [facility] Work Phone: Platelets bldon 09-13-2021 Platelets (Bld) [#/Vol] 188 10*3/uL 150-450 [facility] Work Phone: Absolute lymphocyte counton 09-06-2021 Lymphocytes Auto (Unsp spec) [#/Vol] 1.86 10*3/uL 0.83-4.51 [facility] Work Phone: Basophil percentageon 2021 Basophils/100 WBC (Bld) 0.7 % 0-1 [facility] Work Phone: Eosinophils/100 WBC (Bld) 0.3 % 0-5 [facility] Work Phone: Neutrophils (Bld) [#/Vol] 4.4 10*3/uL 2.0-7.7 [facility] Work Phone: Neutrophils/100 WBC (Bld) 62.6 % 47-70 [facility] Work Phone: WBC (Bld) [#/Vol] 7.0 10*3/uL 4.4-11.0 [facility] Work Phone: Blood erythrocytes count (nu mber/volume)on 09-06-2021 RBC (Bld) [#/Vol] 4.51 10*6/uL 4.6-6.2 [facility] Work Phone: Blood hemoglobin measurement (mass/volume)on 09-06-2021 Hemoglobin (Bld) [Mass/Vol] 13.8 g/dL 13.0-16.5 [facility] Work Phone: Blood lymphocytes/100 leukoc yteson 09-06-2021 Lymphocytes/100 WBC (Bld) 26.5 % 19-41 [facility] Work Phone: Blood monocytes/100 leukocyt eson 09-06-2021 Monocytes/100 WBC (Bld) 9.5 % 0-10 [facility] Work Phone: Blood platelet mean volumeon 09-06-2021 Platelet mean volume (Bld) [Entitic vol] 10.7 fL 6.2-12.0 [facility] Work Phone: Determination of erythrocyte mean corpuscular volume (MCV)on 09-06-2021 MCV (RBC) [Entitic vol] 92.9 fL 80-94 [facility] Work Phone: Hematocrit Auto (Bld) [Volum e fraction]on 09-06-2021 Hematocrit (Bld) [Volume fraction] 41.9 % 40-54 [facility] Work Phone: Laboratory - Hematology and Cell countson 09-06-2021 Erythrocyte distribution width (RBC) [Entitic vol] 43.0 fL 35.1-43.9 [facility] Work Phone: Erythrocyte distribution width (RBC) [Ratio] 12.7 % 11.6-14.6 [facility] Work Phone: Immature granulocytes/100 WBC (Bld) 0.400 % 0.0-0.9 [facility] Work Phone: Comment on above: IG% - Immature Granu locytes (promyelocytes, myelocytes and metamyelocytes) > 1% indicates that a LEFT SHIFT is Present. MCH (RBC) [Entitic mass] 30.6 pg 27.0-32.0 [facility] Work Phone: Nucleated RBC/100 WBC (Bld) [Ratio] 0 % 0-5 [facility] Work Phone: MCHC Auto (RBC) [Mass/Vol]on 09-06-2021 MCHC (RBC) [Mass/Vol] 32.9 g/dL 32-36 [facility] Work Phone: Platelets bldon 09-06-2021 Platelets (Bld) [#/Vol] 189 10*3/uL 150-450 [facility] Work Phone: Absolute lymphocyte counton 08-30-2021 Lymphocytes Auto (Unsp spec) [#/Vol] 1.44 10*3/uL 0.83-4.51 [facility] Work Phone: Basophil percentageon 2021 Basophils/100 WBC (Bld) 0.3 % 0-1 [facility] Work Phone: Eosinophils/100 WBC (Bld) 0.2 % 0-5 [facility] Work Phone: Neutrophils (Bld) [#/Vol] 9.6 10*3/uL 2.0-7.7 [facility] Work Phone: Neutrophils/100 WBC (Bld) 80.4 % 47-70 [facility] Work Phone: WBC (Bld) [#/Vol] 12.0 10*3/uL 4.4-11.0 [facility] Work Phone: Blood erythrocytes count (nu mber/volume)on 08-30-2021 RBC (Bld) [#/Vol] 4.52 10*6/uL 4.6-6.2 [facility] Work Phone: Blood hemoglobin measurement (mass/volume)on 08-30-2021 Hemoglobin (Bld) [Mass/Vol] 13.9 g/dL 13.0-16.5 [facility] Work Phone: Blood lymphocytes/100 leukoc yteson 08-30-2021 Lymphocytes/100 WBC (Bld) 12.0 % 19-41 [facility] Work Phone: Blood monocytes/100 leukocyt eson 08-30-2021 Monocytes/100 WBC (Bld) 6.7 % 0-10 [facility] Work Phone: Blood platelet mean volumeon 08-30-2021 Platelet mean volume (Bld) [Entitic vol] 11.3 fL 6.2-12.0 [facility] Work Phone: Determination of erythrocyte mean corpuscular volume (MCV)on 08-30-2021 MCV (RBC) [Entitic vol] 92.7 fL 80-94 [facility] Work Phone: Hematocrit Auto (Bld) [Volum e fraction]on 08-30-2021 Hematocrit (Bld) [Volume fraction] 41.9 % 40-54 [facility] Work Phone: Laboratory - Hematology and Cell countson 08-30-2021 Erythrocyte distribution width (RBC) [Entitic vol] 42.6 fL 35.1-43.9 [facility] Work Phone: [phone] Erythrocyte distribution width (RBC) [Ratio] 12.6 % 11.6-14.6 [facility] Work Phone: [phone] Immature granulocytes/100 WBC (Bld) 0.400 % 0.0-0.9 [facility] Work Phone: [phone] Comment on above: IG% - Immature Granu locytes (promyelocytes, myelocytes and metamyelocytes) > 1% indicates that a LEFT SHIFT is Present. MCH (RBC) [Entitic mass] 30.8 pg 27.0-32.0 [facility] Work Phone: [phone] Nucleated RBC/100 WBC (Bld) [Ratio] 0 % 0-5 [facility] Work Phone: MCHC Auto (RBC) [Mass/Vol]on 08-30-2021 MCHC (RBC) [Mass/Vol] 33.2 g/dL 32-36 [facility] Work Phone: Platelets bldon 08-30-2021 Platelets (Bld) [#/Vol] 200 10*3/uL 150-450 [facility] Work Phone: [phone] Absolute lymphocyte counton 08-23-2021 Lymphocytes Auto (Unsp spec) [#/Vol] 1.91 10*3/uL 0.83-4.51 [facility] Work Phone: Basophil percentageon 2021 Basophils/100 WBC (Bld) 0.4 % 0-1 [facility] Work Phone: Eosinophils/100 WBC (Bld) 0.3 % 0-5 [facility] Work Phone: Neutrophils (Bld) [#/Vol] 4.2 10*3/uL 2.0-7.7 [facility] Work Phone: [phone] Neutrophils/100 WBC (Bld) 62.3 % 47-70 [facility] Work Phone: WBC (Bld) [#/Vol] 6.8 10*3/uL 4.4-11.0 [facility] Work [facility]: Blood erythrocytes count (nu mber/volume)on 08-23-2021 RBC (Bld) [#/Vol] 4.46 10*6/uL 4.6-6.2 [facility] Work Phone: Blood hemoglobin measurement (mass/volume)on 08-23-2021 Hemoglobin (Bld) [Mass/Vol] 13.7 g/dL 13.0-16.5 [facility] Work Phone: Blood lymphocytes/100 leukoc yteson 08-23-2021 Lymphocytes/100 WBC (Bld) 28.3 % 19-41 [facility] Work Phone: Blood monocytes/100 leukocyt eson 08-23-2021 Monocytes/100 WBC (Bld) 8.1 % 0-10 [facility] Work Phone: Blood platelet mean volumeon 08-23-2021 Platelet mean volume (Bld) [Entitic vol] 10.6 fL 6.2-12.0 [facility] Work Phone: Determination of erythrocyte mean corpuscular volume (MCV)on 08-23-2021 MCV (RBC) [Entitic vol] 93.0 fL 80-94 [facility] Work Phone: Hematocrit Auto (Bld) [Volum e fraction]on 08-23-2021 Hematocrit (Bld) [Volume fraction] 41.5 % 40-54 [facility] Work Phone: Laboratory - Hematology and Cell countson 08-23-2021 Erythrocyte distribution width (RBC) [Entitic vol] 42.4 fL 35.1-43.9 [facility] Work Phone: Erythrocyte distribution width (RBC) [Ratio] 12.5 % 11.6-14.6 [facility] Work Phone: Immature granulocytes/100 WBC (Bld) 0.600 % 0.0-0.9 [facility] Work Phone: Comment on above: IG% - Immature Granu locytes (promyelocytes, myelocytes and metamyelocytes) > 1% indicates that a LEFT SHIFT is Present. MCH (RBC) [Entitic mass] 30.7 pg 27.0-32.0 [facility] Work Phone: Nucleated RBC/100 WBC (Bld) [Ratio] 0 % 0-5 [facility] Work Phone: [phone] MCHC Auto (RBC) [Mass/Vol]on 08-23-2021 MCHC (RBC) [Mass/Vol] 33.0 g/dL 32-36 [facility] Work Phone: Platelets bldon 08-23-2021 Platelets (Bld) [#/Vol] 198 10*3/uL 150-450 [facility] Work Phone: Basophil percentageon 2021 Basophil percentage 0 SEEN /hpf 0-5 [facility] Work Phone: Bilirubin Test strip Ql (U)o n 08-18-2021 Bilirubin Ql (U) Negative Negative [facility] Work Phone: Culture, urineon 08-18-2021 Bacteria identified Cx Nom (U) Culture exhibits no growth. [facility] Work Phone: Ketones Test strip Ql (U)on 08-18-2021 Ketones Ql (U) Negative Negative [facility] Work Phone: Mucus LM Ql (Urine sed)on Mucus Ql (Urine sed) 0 SEEN /hpf [facility] Work Phone: Nitrite Test strip Ql (U)on 08-18-2021 Nitrite Ql (U) Negative Negative [facility] Work Phone: Protein Test strip Ql (U)on 08-18-2021 Protein Ql (U) Negative Negative [facility] Work Phone: Squamous epithelial cells de tection in urine sediment by light microscopyon 08-18-2021 Epithelial cells.squamous LM Ql (Urine sed) 0 SEEN /hpf 0-5 [facility] Work Phone: Urine blood detectionon - RBC Ql (U) Negative Negative [facility] Work Phone: RBC Ql (U) 0 SEEN /hpf 0-5 [facility] Work Phone: Urine clarityon 08-18-2021 Clarity (U) Clear Clear [facility] Work Phone: Urine color determinationon 08-18-2021 Color (U) Yellow Yellow [facility] Work Phone: Urine glucose detectionon Glucose Ql (U) Normal mg/dl Normal [facility] Work Phone: Urine leukocyte esterase det ection by dipstickon 08-18-2021 Leukocyte esterase Test strip Ql (U) Negative Negative [facility] Work Phone: Urine pHon 08-18-2021 pH (U) 7.0 [pH] 5.0 - 8.0 [facility] Work Phone: Urine sediment bacteria coun t by microscopy (number/high power field)on 08-18-2021 Bacteria LM.HPF (Urine sed) [#/Area] 0 /[HPF] None Seen [facility] Work Phone: Urine specific gravity measu rementon 08-18-2021 Specific gravity (U) [Rel density] 1.010 1.002-1.030 [facility] Work Phone: Urobilinogen Auto test strip Ql (U)on 08-18-2021 Urobilinogen Ql (U) 4 mg/dl Normal [facility] Work Phone: Absolute lymphocyte counton 08-16-2021 Lymphocytes Auto (Unsp spec) [#/Vol] 1.71 10*3/uL 0.83-4.51 [facility] Work Phone: Basophil percentageon 2021 Basophils/100 WBC (Bld) 0.3 % 0-1 [facility] Work Phone: Eosinophils/100 WBC (Bld) 0.2 % 0-5 [facility] Work Phone: [phone] Neutrophils (Bld) [#/Vol] 8.6 10*3/uL 2.0-7.7 [facility] Work Phone: Neutrophils/100 WBC (Bld) 76.8 % 47-70 [facility] Work Phone: WBC (Bld) [#/Vol] 11.2 10*3/uL 4.4-11.0 [facility] Work Phone: Blood erythrocytes count (nu mber/volume)on 08-16-2021 RBC (Bld) [#/Vol] 4.42 10*6/uL 4.6-6.2 [facility] Work Phone: Blood hemoglobin measurement (mass/volume)on 08-16-2021 Hemoglobin (Bld) [Mass/Vol] 13.4 g/dL 13.0-16.5 [facility] Work Phone: Blood lymphocytes/100 leukoc yteson 08-16-2021 Lymphocytes/100 WBC (Bld) 15.2 % 19-41 [facility] Work Phone: [phone] Blood monocytes/100 leukocyt eson 08-16-2021 Monocytes/100 WBC (Bld) 7.1 % 0-10 [facility] Work Phone: Blood platelet mean volumeon 08-16-2021 Platelet mean volume (Bld) [Entitic vol] 11.0 fL 6.2-12.0 [facility] Work Phone: Determination of erythrocyte mean corpuscular volume (MCV)on 08-16-2021 MCV (RBC) [Entitic vol] 91.9 fL 80-94 [facility] Work Phone: Hematocrit Auto (Bld) [Volum e fraction]on 08-16-2021 Hematocrit (Bld) [Volume fraction] 40.6 % 40-54 [facility] Work Phone: Laboratory - Hematology and Cell countson 08-16-2021 Erythrocyte distribution width (RBC) [Entitic vol] 43.0 fL 35.1-43.9 [facility] Work Phone: Erythrocyte distribution width (RBC) [Ratio] 12.7 % 11.6-14.6 [facility] Work Phone: Immature granulocytes/100 WBC (Bld) 0.400 % 0.0-0.9 [facility] Work Phone: Comment on above: IG% - Immature Granu locytes (promyelocytes, myelocytes and metamyelocytes) > 1% indicates that a LEFT SHIFT is Present. MCH (RBC) [Entitic mass] 30.3 pg 27.0-32.0 [facility] Work Phone: Nucleated RBC/100 WBC (Bld) [Ratio] 0 % 0-5 [facility] Work Phone: MCHC Auto (RBC) [Mass/Vol]on 08-16-2021 MCHC (RBC) [Mass/Vol] 33.0 g/dL 32-36 [facility] Work Phone: Platelets bldon 08-16-2021 Platelets (Bld) [#/Vol] 187 10*3/uL 150-450 [facility] Work Phone: Absolute lymphocyte counton 08-09-2021 Lymphocytes Auto (Unsp spec) [#/Vol] 1.78 10*3/uL 0.83-4.51 [facility] Work Phone: Basophil percentageon 2021 Basophils/100 WBC (Bld) 0.5 % 0-1 [facility] Work Phone: [phone] Eosinophils/100 WBC (Bld) 0.1 % 0-5 [facility] Work Phone: Neutrophils (Bld) [#/Vol] 6.0 10*3/uL 2.0-7.7 [facility] Work Phone: Neutrophils/100 WBC (Bld) 71.3 % 47-70 [facility] Work Phone: WBC (Bld) [#/Vol] 8.4 10*3/uL 4.4-11.0 [facility]: Blood erythrocytes count (nu mber/volume)on 08-09-2021 RBC (Bld) [#/Vol] 4.37 10*6/uL 4.6-6.2 [facility] Work Phone: Blood hemoglobin measurement (mass/volume)on 08-09-2021 Hemoglobin (Bld) [Mass/Vol] 13.5 g/dL 13.0-16.5 [facility] Work Phone: Blood lymphocytes/100 leukoc yteson 08-09-2021 Lymphocytes/100 WBC (Bld) 21.2 % 19-41 [facility] Work Phone: Blood monocytes/100 leukocyt eson 08-09-2021 Monocytes/100 WBC (Bld) 6.5 % 0-10 [facility] Work Phone: Blood platelet mean volumeon 08-09-2021 Platelet mean volume (Bld) [Entitic vol] 11.1 fL 6.2-12.0 [facility] Work Phone: Determination of erythrocyte mean corpuscular volume (MCV)on 08-09-2021 MCV (RBC) [Entitic vol] 91.3 fL 80-94 [facility] Work Phone: Hematocrit Auto (Bld) [Volum e fraction]on 08-09-2021 Hematocrit (Bld) [Volume fraction] 39.9 % 40-54 [facility] Work Phone: Laboratory - Hematology and Cell countson 08-09-2021 Erythrocyte distribution width (RBC) [Entitic vol] 41.4 fL 35.1-43.9 [facility] Work Phone: Erythrocyte distribution width (RBC) [Ratio] 12.5 % 11.6-14.6 [facility] Work Phone: Immature granulocytes/100 WBC (Bld) 0.400 % 0.0-0.9 [facility] Work Phone: Comment on above: IG% - Immature Granu locytes (promyelocytes, myelocytes and metamyelocytes) > 1% indicates that a LEFT SHIFT is Present. MCH (RBC) [Entitic mass] 30.9 pg 27.0-32.0 [facility] Work Phone: Nucleated RBC/100 WBC (Bld) [Ratio] 0 % 0-5 [facility] Work Phone: MCHC Auto (RBC) [Mass/Vol]on 08-09-2021 MCHC (RBC) [Mass/Vol] 33.8 g/dL 32-36 [facility] Work [facility]: Platelets bldon 08-09-2021 Platelets (Bld) [#/Vol] 177 10*3/uL 150-450 [facility] Work Phone: Absolute lymphocyte counton 08-02-2021 Lymphocytes Auto (Unsp spec) [#/Vol] 1.69 10*3/uL 0.83-4.51 [facility] Work Phone: Basophil percentageon 2021 Basophils/100 WBC (Bld) 0.3 % 0-1 [facility] Work Phone: Eosinophils/100 WBC (Bld) 0.3 % 0-5 [facility] Work Phone: Neutrophils (Bld) [#/Vol] 3.8 10*3/uL 2.0-7.7 [facility] Work Phone: Neutrophils/100 WBC (Bld) 61.9 % 47-70 [facility] Work Phone: WBC (Bld) [#/Vol] 6.1 10*3/uL 4.4-11.0 [facility] Work Phone: Blood erythrocytes count (nu mber/volume)on 08-02-2021 RBC (Bld) [#/Vol] 4.54 10*6/uL 4.6-6.2 [facility] Work Phone: Blood hemoglobin measurement (mass/volume)on 08-02-2021 Hemoglobin (Bld) [Mass/Vol] 13.8 g/dL 13.0-16.5 [facility] Work Phone: Blood lymphocytes/100 leukoc yteson 08-02-2021 Lymphocytes/100 WBC (Bld) 27.7 % 19-41 [facility] Work Phone: Blood monocytes/100 leukocyt eson 08-02-2021 Monocytes/100 WBC (Bld) 9.5 % 0-10 [facility] Work Phone: Blood platelet mean volumeon 08-02-2021 Platelet mean volume (Bld) [Entitic vol] 11.2 fL 6.2-12.0 [facility] Work Phone: Determination of erythrocyte mean corpuscular volume (MCV)on 08-02-2021 MCV (RBC) [Entitic vol] 90.1 fL 80-94 [facility] Work Phone: Hematocrit Auto (Bld) [Volum e fraction]on 08-02-2021 Hematocrit (Bld) [Volume fraction] 40.9 % 40-54 [facility] Work Phone: Laboratory - Hematology and Cell countson 08-02-2021 Erythrocyte distribution width (RBC) [Entitic vol] 40.3 fL 35.1-43.9 [facility] Work Phone: Erythrocyte distribution width (RBC) [Ratio] 12.4 % 11.6-14.6 [facility] Work Phone: Immature granulocytes/100 WBC (Bld) 0.300 % 0.0-0.9 [facility] Work Phone: Comment on above: IG% - Immature Granu locytes (promyelocytes, myelocytes and metamyelocytes) > 1% indicates that a LEFT SHIFT is Present. MCH (RBC) [Entitic mass] 30.4 pg 27.0-32.0 [facility] Work Phone: Nucleated RBC/100 WBC (Bld) [Ratio] 0 % 0-5 [facility] Work Phone: MCHC Auto (RBC) [Mass/Vol]on 08-02-2021 MCHC (RBC) [Mass/Vol] 33.7 g/dL 32-36 [facility] Work Phone: Platelets bldon 08-02-2021 Platelets (Bld) [#/Vol] 192 10*3/uL 150-450 [facility] Work Phone: [phone] Absolute lymphocyte counton 07-26-2021 Lymphocytes Auto (Unsp spec) [#/Vol] 1.83 10*3/uL 0.83-4.51 [facility] Work Phone: Basophil percentageon 2021 Basophils/100 WBC (Bld) 0.5 % 0-1 [facility] Work Phone: Eosinophils/100 WBC (Bld) 0.3 % 0-5 [facility] Work Phone: Neutrophils (Bld) [#/Vol] 3.3 10*3/uL 2.0-7.7 [facility] Work Phone: Neutrophils/100 WBC (Bld) 58.1 % 47-70 [facility] Work Phone: WBC (Bld) [#/Vol] 5.7 10*3/uL 4.4-11.0 [facility] Work Phone: Blood erythrocytes count (nu mber/volume)on 07-26-2021 RBC (Bld) [#/Vol] 4.21 10*6/uL 4.6-6.2 [facility] Work Phone: Blood hemoglobin measurement (mass/volume)on 07-26-2021 Hemoglobin (Bld) [Mass/Vol] 12.9 g/dL 13.0-16.5 [facility] Work Phone: Blood lymphocytes/100 leukoc yteson 07-26-2021 Lymphocytes/100 WBC (Bld) 31.9 % 19-41 [facility] Work Phone: Blood monocytes/100 leukocyt eson 07-26-2021 Monocytes/100 WBC (Bld) 8.9 % 0-10 [facility] Work Phone: Blood platelet mean volumeon 07-26-2021 Platelet mean volume (Bld) [Entitic vol] 11.5 fL 6.2-12.0 [facility] Work Phone: Determination of erythrocyte mean corpuscular volume (MCV)on 07-26-2021 MCV (RBC) [Entitic vol] 90.7 fL 80-94 [facility] Work Phone: Hematocrit Auto (Bld) [Volum e fraction]on 07-26-2021 Hematocrit (Bld) [Volume fraction] 38.2 % 40-54 [facility] Work Phone: Laboratory - Hematology and Cell countson 07-26-2021 Erythrocyte distribution width (RBC) [Entitic vol] 41.2 fL 35.1-43.9 [facility] Work Phone: Erythrocyte distribution width (RBC) [Ratio] 12.5 % 11.6-14.6 [facility] Work Phone: Immature granulocytes/100 WBC (Bld) 0.300 % 0.0-0.9 [facility] Work Phone: Comment on above: IG% - Immature Granu locytes (promyelocytes, myelocytes and metamyelocytes) > 1% indicates that a LEFT SHIFT is Present. MCH (RBC) [Entitic mass] 30.6 pg 27.0-32.0 [facility] Work Phone: Nucleated RBC/100 WBC (Bld) [Ratio] 0 % 0-5 [facility] Work Phone: MCHC Auto (RBC) [Mass/Vol]on 07-26-2021 MCHC (RBC) [Mass/Vol] 33.8 g/dL 32-36 [facility] Work Phone: Platelets bldon 07-26-2021 Platelets (Bld) [#/Vol] 180 10*3/uL 150-450 [facility] Work Phone: Absolute lymphocyte counton 07-19-2021 Lymphocytes Auto (Unsp spec) [#/Vol] 2.04 10*3/uL 0.83-4.51 [facility] Work Phone: Basophil percentageon 2021 Basophils/100 WBC (Bld) 0.3 % 0-1 [facility] Work Phone: Eosinophils/100 WBC (Bld) 0.4 % 0-5 [facility] Work Phone: Neutrophils (Bld) [#/Vol] 4.0 10*3/uL 2.0-7.7 [facility] Work Phone: Neutrophils/100 WBC (Bld) 59.2 % 47-70 [facility] Work Phone: WBC (Bld) [#/Vol] 6.7 10*3/uL 4.4-11.0 [facility] Work Phone: [phone] Blood erythrocytes count (nu mber/volume)on 07-19-2021 RBC (Bld) [#/Vol] 4.53 10*6/uL 4.6-6.2 [facility] Work Phone: Blood hemoglobin measurement (mass/volume)on 07-19-2021 Hemoglobin (Bld) [Mass/Vol] 14.1 g/dL 13.0-16.5 [facility] Work Phone: Blood lymphocytes/100 leukoc yteson 07-19-2021 Lymphocytes/100 WBC (Bld) 30.5 % 19-41 [facility] Work Phone: Blood monocytes/100 leukocyt eson 07-19-2021 Monocytes/100 WBC (Bld) 9.0 % 0-10 [facility] Work Phone: Blood platelet mean volumeon 07-19-2021 Platelet mean volume (Bld) [Entitic vol] 11.4 fL 6.2-12.0 [facility] Work Phone: Determination of erythrocyte mean corpuscular volume (MCV)on 07-19-2021 MCV (RBC) [Entitic vol] 90.5 fL 80-94 [facility] Work Phone: Hematocrit Auto (Bld) [Volum e fraction]on 07-19-2021 Hematocrit (Bld) [Volume fraction] 41.0 % 40-54 [facility] Work Phone: Laboratory - Hematology and Cell countson 07-19-2021 Erythrocyte distribution width (RBC) [Entitic vol] 41.1 fL 35.1-43.9 [facility] Work Phone: Erythrocyte distribution width (RBC) [Ratio] 12.5 % 11.6-14.6 [facility] Work Phone: Immature granulocytes/100 WBC (Bld) 0.600 % 0.0-0.9 [facility] Work Phone: Comment on above: IG% - Immature Granu locytes (promyelocytes, myelocytes and metamyelocytes) > 1% indicates that a LEFT SHIFT is Present. MCH (RBC) [Entitic mass] 31.1 pg 27.0-32.0 [facility] Work Phone: Nucleated RBC/100 WBC (Bld) [Ratio] 0 % 0-5 [facility] Work Phone: MCHC Auto (RBC) [Mass/Vol]on 07-19-2021 MCHC (RBC) [Mass/Vol] 34.4 g/dL 32-36 [facility] Work Phone: Platelets bldon 07-19-2021 Platelets (Bld) [#/Vol] 193 10*3/uL 150-450 [facility] Work Phone: Absolute lymphocyte counton 07-12-2021 Lymphocytes Auto (Unsp spec) [#/Vol] 1.42 10*3/uL 0.83-4.51 [facility] Work Phone: Basophil percentageon 2021 Basophils/100 WBC (Bld) 0.6 % 0-1 [facility] Work Phone: [phone] Eosinophils/100 WBC (Bld) 0.3 % 0-5 [facility] Work Phone: Neutrophils (Bld) [#/Vol] 4.7 10*3/uL 2.0-7.7 [facility] Work Phone: Neutrophils/100 WBC (Bld) 67.3 % 47-70 [facility] Work Phone: WBC (Bld) [#/Vol] 7.0 10*3/uL 4.4-11.0 [facility] Work Phone: Blood erythrocytes count (nu mber/volume)on 07-12-2021 RBC (Bld) [#/Vol] 4.61 10*6/uL 4.6-6.2 [facility] Work Phone: Blood hemoglobin measurement (mass/volume)on 07-12-2021 Hemoglobin (Bld) [Mass/Vol] 14.4 g/dL 13.0-16.5 [facility] Work Phone: Blood lymphocytes/100 leukoc yteson 07-12-2021 Lymphocytes/100 WBC (Bld) 20.4 % 19-41 [facility] Work Phone: [phone] Blood monocytes/100 leukocyt eson 07-12-2021 Monocytes/100 WBC (Bld) 11.1 % 0-10 [facility] Work Phone: Blood platelet mean volumeon 07-12-2021 Platelet mean volume (Bld) [Entitic vol] 11.2 fL 6.2-12.0 [facility] Work Phone: Determination of erythrocyte mean corpuscular volume (MCV)on 07-12-2021 MCV (RBC) [Entitic vol] 91.1 fL 80-94 [facility] Work Phone: Hematocrit Auto (Bld) [Volum e fraction]on 07-12-2021 Hematocrit (Bld) [Volume fraction] 42.0 % 40-54 [facility] Work Phone: Laboratory - Hematology and Cell countson 07-12-2021 Erythrocyte distribution width (RBC) [Entitic vol] 41.4 fL 35.1-43.9 [facility] Work Phone: Erythrocyte distribution width (RBC) [Ratio] 12.6 % 11.6-14.6 [facility] Work Phone: Immature granulocytes/100 WBC (Bld) 0.300 % 0.0-0.9 [facility] Work Phone: Comment on above: IG% - Immature Granu locytes (promyelocytes, myelocytes and metamyelocytes) > 1% indicates that a LEFT SHIFT is Present. MCH (RBC) [Entitic mass] 31.2 pg 27.0-32.0 [facility] Work Phone: Nucleated RBC/100 WBC (Bld) [Ratio] 0 % 0-5 [facility] Work Phone: MCHC Auto (RBC) [Mass/Vol]on 07-12-2021 MCHC (RBC) [Mass/Vol] 34.3 g/dL 32-36 [facility] Work Phone: Platelets bldon 07-12-2021 Platelets (Bld) [#/Vol] 184 10*3/uL 150-450 [facility] Work Phone: Absolute lymphocyte counton 07-05-2021 Lymphocytes Auto (Unsp spec) [#/Vol] 1.55 10*3/uL 0.83-4.51 [facility] Work Phone: Basophil percentageon 2021 Basophils/100 WBC (Bld) 0.4 % 0-1 [facility] Work Phone: Cholesterol [Mass/Vol] 148 mg/dL <200 [facility] Work Phone: Comment on above: <200 mg/dL Desirable 200-240 mg/dL Borderline >240 mg/dL High Risk Eosinophils/100 WBC (Bld) 0.3 % 0-5 [facility] Work Phone: Neutrophils (Bld) [#/Vol] 5.5 10*3/uL 2.0-7.7 [facility] Work Phone: Neutrophils/100 WBC (Bld) 70.9 % 47-70 [facility] Work Phone: Triglyceride [Mass/Vol] 201 mg/dL <199 [facility] Work Phone: Comment on above: The drugs N-Acetylcy steine and Metamizole may falsely depress this assay.Serum Triglycerides Reference Interval Normal <150 mg/dL Borderline high 150 - 199 mg/dL High 200 - 499 mg/dL Very High > or = 500 mg/dL WBC (Bld) [#/Vol] 7.8 10*3/uL 4.4-11.0 [facility] Work Phone: Blood erythrocytes count (nu mber/volume)on 07-05-2021 RBC (Bld) [#/Vol] 4.46 10*6/uL 4.6-6.2 [facility] Work Phone: Blood hemoglobin measurement (mass/volume)on 07-05-2021 Hemoglobin (Bld) [Mass/Vol] 13.4 g/dL 13.0-16.5 [facility] Work Phone: Blood lymphocytes/100 leukoc yteson 07-05-2021 Lymphocytes/100 WBC (Bld) 20.0 % 19-41 [facility] Work Phone: Blood monocytes/100 leukocyt eson 07-05-2021 Monocytes/100 WBC (Bld) 8.1 % 0-10 [facility] Work Phone: Blood platelet mean volumeon 07-05-2021 Platelet mean volume (Bld) [Entitic vol] 11.7 fL 6.2-12.0 [facility] Work Phone: Determination of erythrocyte mean corpuscular volume (MCV)on 07-05-2021 MCV (RBC) [Entitic vol] 91.0 fL 80-94 [facility] Work Phone: Hematocrit Auto (Bld) [Volum e fraction]on 07-05-2021 Hematocrit (Bld) [Volume fraction] 40.6 % 40-54 [facility] Work Phone: Laboratory - Hematology and Cell countson 07-05-2021 Erythrocyte distribution width (RBC) [Entitic vol] 41.9 fL 35.1-43.9 [facility] Work Phone: Erythrocyte distribution width (RBC) [Ratio] 12.8 % 11.6-14.6 [facility] Work Phone: Immature granulocytes/100 WBC (Bld) 0.300 % 0.0-0.9 [facility] Work Phone: Comment on above: IG% - Immature Granu locytes (promyelocytes, myelocytes and metamyelocytes) > 1% indicates that a LEFT SHIFT is Present. MCH (RBC) [Entitic mass] 30.0 pg 27.0-32.0 [facility] Work Phone: Nucleated RBC/100 WBC (Bld) [Ratio] 0 % 0-5 [facility] Work Phone: MCHC Auto (RBC) [Mass/Vol]on 07-05-2021 MCHC (RBC) [Mass/Vol] 33.0 g/dL 32-36 [facility] Work Phone: Platelets bldon 07-05-2021 Platelets (Bld) [#/Vol] 186 10*3/uL 150-450 [facility] Work Phone: Serum or plasma cholesterol in HDL measurement (mass/volume)on 07-05-2021 Cholesterol in HDL [Mass/Vol] 30 mg/dL >40 [facility] Work Phone: Comment on above: The drugs N-Acetylcy steine and Metamizole may falsely depress this assay. Reference Range HDL <40 mg/dL Low HDL Cholesterol HDL >or= 60 mg/dL High HDL Cholesterol Serum or plasma cholesterol in VLDL measurement (mass/volume)on 07-05-2021 Cholesterol in VLDL [Mass/Vol] 40 mg/dL 5-40 [facility] Work Phone: Serum or plasma low density lipoprotein (LDL) cholesterol measurement (mass/volume)on 07-05-2021 Cholesterol in LDL [Mass/Vol] 78 mg/dL 0-130 [facility] Work Phone: Absolute lymphocyte counton 06-28-2021 Lymphocytes Auto (Unsp spec) [#/Vol] 2.01 10*3/uL 0.83-4.51 [facility] Work Phone: Basophil percentageon 2021 Basophils/100 WBC (Bld) 0.5 % 0-1 [facility] Work Phone: Eosinophils/100 WBC (Bld) 0.3 % 0-5 [facility] Work Phone: Neutrophils (Bld) [#/Vol] 3.3 10*3/uL 2.0-7.7 [facility] Work Phone: Neutrophils/100 WBC (Bld) 55.5 % 47-70 [facility] Work Phone: WBC (Bld) [#/Vol] 6.0 10*3/uL 4.4-11.0 [facility] Work Phone: Blood erythrocytes count (nu mber/volume)on 06-28-2021 RBC (Bld) [#/Vol] 4.32 10*6/uL 4.6-6.2 [facility] Work Phone: Blood hemoglobin measurement (mass/volume)on 06-28-2021 Hemoglobin (Bld) [Mass/Vol] 13.5 g/dL 13.0-16.5 [facility] Work Phone: Blood lymphocytes/100 leukoc yteson 06-28-2021 Lymphocytes/100 WBC (Bld) 33.5 % 19-41 [facility] Work Phone: Blood monocytes/100 leukocyt eson 06-28-2021 Monocytes/100 WBC (Bld) 10.0 % 0-10 [facility] Work Phone: Blood platelet mean volumeon 06-28-2021 Platelet mean volume (Bld) [Entitic vol] 11.8 fL 6.2-12.0 [facility] Work Phone: Determination of erythrocyte mean corpuscular volume (MCV)on 06-28-2021 MCV (RBC) [Entitic vol] 89.8 fL 80-94 [facility] Work Phone: Hematocrit Auto (Bld) [Volum e fraction]on 06-28-2021 Hematocrit (Bld) [Volume fraction] 38.8 % 40-54 [facility] Work Phone: Laboratory - Hematology and Cell countson 06-28-2021 Erythrocyte distribution width (RBC) [Entitic vol] 40.6 fL 35.1-43.9 [facility] Work Phone: Erythrocyte distribution width (RBC) [Ratio] 12.5 % 11.6-14.6 [facility] Work Phone: Immature granulocytes/100 WBC (Bld) 0.200 % 0.0-0.9 [facility] Work Phone: Comment on above: IG% - Immature Granu locytes (promyelocytes, myelocytes and metamyelocytes) > 1% indicates that a LEFT SHIFT is Present. MCH (RBC) [Entitic mass] 31.3 pg 27.0-32.0 [facility] Work Phone: Nucleated RBC/100 WBC (Bld) [Ratio] 0 % 0-5 [facility] Work Phone: [phone] MCHC Auto (RBC) [Mass/Vol]on 06-28-2021 MCHC (RBC) [Mass/Vol] 34.8 g/dL 32-36 [facility] Work Phone: [phone] Platelets bldon 06-28-2021 Platelets (Bld) [#/Vol] 185 10*3/uL 150-450 [facility] Work Phone: [phone] Absolute lymphocyte counton 06-21-2021 Lymphocytes Auto (Unsp spec) [#/Vol] 1.78 10*3/uL 0.83-4.51 [facility] Work Phone: Basophil percentageon 2021 Basophils/100 WBC (Bld) 0.3 % 0-1 [facility] Work Phone: [phone] Eosinophils/100 WBC (Bld) 0.4 % 0-5 [facility] Work Phone: [phone] Neutrophils (Bld) [#/Vol] 4.2 10*3/uL 2.0-7.7 [facility] Work Phone: [phone] Neutrophils/100 WBC (Bld) 62.7 % 47-70 [facility] Work Phone: [phone] WBC (Bld) [#/Vol] 6.8 10*3/uL 4.4-11.0 [facility] Work Phone: [phone] Blood erythrocytes count (nu mber/volume)on 06-21-2021 RBC (Bld) [#/Vol] 4.21 10*6/uL 4.6-6.2 [facility] Work Phone: Blood hemoglobin measurement (mass/volume)on 06-21-2021 Hemoglobin (Bld) [Mass/Vol] 13.3 g/dL 13.0-16.5 [facility] Work Phone: Blood lymphocytes/100 leukoc yteson 06-21-2021 Lymphocytes/100 WBC (Bld) 26.3 % 19-41 [facility] Work Phone: Blood monocytes/100 leukocyt eson 06-21-2021 Monocytes/100 WBC (Bld) 9.9 % 0-10 [facility] Work Phone: Blood platelet mean volumeon 06-21-2021 Platelet mean volume (Bld) [Entitic vol] 11.5 fL 6.2-12.0 [facility] Work Phone: Determination of erythrocyte mean corpuscular volume (MCV)on 06-21-2021 MCV (RBC) [Entitic vol] 91.0 fL 80-94 [facility] Work Phone: Hematocrit Auto (Bld) [Volum e fraction]on 06-21-2021 Hematocrit (Bld) [Volume fraction] 38.3 % 40-54 [facility] Work Phone: Laboratory - Hematology and Cell countson 06-21-2021 Erythrocyte distribution width (RBC) [Entitic vol] 40.2 fL 35.1-43.9 [facility] Work Phone: Erythrocyte distribution width (RBC) [Ratio] 12.2 % 11.6-14.6 [facility] Work Phone: Immature granulocytes/100 WBC (Bld) 0.400 % 0.0-0.9 [facility] Work Phone: Comment on above: IG% - Immature Granu locytes (promyelocytes, myelocytes and metamyelocytes) > 1% indicates that a LEFT SHIFT is Present. MCH (RBC) [Entitic mass] 31.6 pg 27.0-32.0 [facility] Work Phone: Nucleated RBC/100 WBC (Bld) [Ratio] 0 % 0-5 [facility] Work Phone: MCHC Auto (RBC) [Mass/Vol]on 06-21-2021 MCHC (RBC) [Mass/Vol] 34.7 g/dL 32-36 [facility] Work Phone: Platelets bldon 06-21-2021 Platelets (Bld) [#/Vol] 217 10*3/uL 150-450 [facility] Work Phone: Absolute lymphocyte counton 06-14-2021 Lymphocytes Auto (Unsp spec) [#/Vol] 1.41 10*3/uL 0.83-4.51 [facility] Work Phone: Basophil percentageon 2021 Basophils/100 WBC (Bld) 0.4 % 0-1 [facility] Work Phone: [phone] Chloride [Moles/Vol] 106 mmol/L 98-107 [facility] Work Phone: [phone] Eosinophils/100 WBC (Bld) 0.6 % 0-5 [facility] Work Phone: [phone] Glucose [Mass/Vol] 121 mg/dL 74-106 [facility] Work Phone: Comment on above: Fasting Glucose resu lt from 100 to 125 mg/dL suggests IMPAIRED HOMEOSTASIS per A.D.A. criteria. Neutrophils (Bld) [#/Vol] 4.8 10*3/uL 2.0-7.7 [facility] Work Phone: [phone] Neutrophils/100 WBC (Bld) 69.9 % 47-70 [facility] Work Phone: [phone] Potassium [Moles/Vol] 3.7 mmol/L 3.5-5.1 [facility] Work Phone: [phone] Sodium [Moles/Vol] 140 mmol/L 136-145 [facility] Work Phone: WBC (Bld) [#/Vol] 6.8 10*3/uL 4.4-11.0 [facility] Work Phone: [phone] Blood erythrocytes count (nu mber/volume)on 06-14-2021 RBC (Bld) [#/Vol] 4.78 10*6/uL 4.6-6.2 [facility] Work Phone: Blood hemoglobin measurement (mass/volume)on 06-14-2021 Hemoglobin (Bld) [Mass/Vol] 14.9 g/dL 13.0-16.5 [facility] Work Phone: Blood lymphocytes/100 leukoc yteson 06-14-2021 Lymphocytes/100 WBC (Bld) 20.8 % 19-41 [facility] Work Phone: Blood monocytes/100 leukocyt eson 06-14-2021 Monocytes/100 WBC (Bld) 7.7 % 0-10 [facility] Work Phone: Blood platelet mean volumeon 06-14-2021 Platelet mean volume (Bld) [Entitic vol] 11.5 fL 6.2-12.0 [facility] Work Phone: Determination of erythrocyte mean corpuscular volume (MCV)on 06-14-2021 MCV (RBC) [Entitic vol] 89.5 fL 80-94 [facility] Work Phone: Hematocrit Auto (Bld) [Volum e fraction]on 06-14-2021 Hematocrit (Bld) [Volume fraction] 42.8 % 40-54 [facility] Work Phone: Laboratory - Chemistry and C hemistry - challengeon 06-14-2021 CO2 [Moles/Vol] 27.0 mmol/L 21.0-32.0 [facility] Work Phone: Urea nitrogen/Creatinine [Mass ratio] 35.0 mg/mg 10-20 [facility] Work Phone: Laboratory - Hematology and Cell countson 06-14-2021 Erythrocyte distribution width (RBC) [Entitic vol] 39.3 fL 35.1-43.9 [facility] Work Phone: Erythrocyte distribution width (RBC) [Ratio] 12.0 % 11.6-14.6 [facility] Work Phone: Immature granulocytes/100 WBC (Bld) 0.600 % 0.0-0.9 [facility] Work Phone: Comment on above: IG% - Immature Granu locytes (promyelocytes, myelocytes and metamyelocytes) > 1% indicates that a LEFT SHIFT is Present. MCH (RBC) [Entitic mass] 31.2 pg 27.0-32.0 [facility] Work Phone: Nucleated RBC/100 WBC (Bld) [Ratio] 0 % 0-5 [facility] Work Phone: MCHC Auto (RBC) [Mass/Vol]on 06-14-2021 MCHC (RBC) [Mass/Vol] 34.8 g/dL 32-36 [facility] Work Phone: No Panel Informationon 06-14 Estimated GFR (MDRD) Amer 185 mL/min >60 [facility] Work Phone: Comment on above: GFR Calc Estimated GFR (MDRD) Non-Af Amer 153 mL/min >60 [facility] Work Phone: Comment on above: Non- GFR Calc Platelets bldon 06-14-2021 Platelets (Bld) [#/Vol] 223 10*3/uL 150-450 [facility] Work Phone: Serum or plasma calcium gordy urement (mass/volume)on 06-14-2021 Calcium [Mass/Vol] 8.0 mg/dL 8.5-10.1 [facility] Work Phone: Serum or plasma creatinine m easurement (mass/volume)on 06-14-2021 Creatinine [Mass/Vol] 0.57 mg/dL 0.70-1.30 [facility] Work Phone: Comment on above: The validity of the calculated GFR & GFRAA in patients over 70 years has not been determined. Clinical correlation is essential. Serum or plasma urea nitroge n measurement (mass/volume)on 06-14-2021 Urea nitrogen [Mass/Vol] 20 mg/dL 7-18 [facility] Work Phone: Thin prep Papanicolaou smear with manual screeningon 06-14-2021 Thin prep Papanicolaou smear with manual screening 7 5-15 [facility] Work Phone: Absolute lymphocyte counton 06-07-2021 Lymphocytes Auto (Unsp spec) [#/Vol] 1.38 10*3/uL 0.83-4.51 [facility] Work Phone: Basophil percentageon 2021 Basophils/100 WBC (Bld) 0.2 % 0-1 [facility] Work Phone: Eosinophils/100 WBC (Bld) 0.0 % 0-5 [facility] Work Phone: Neutrophils (Bld) [#/Vol] 7.3 10*3/uL 2.0-7.7 [facility] Work Phone: Neutrophils/100 WBC (Bld) 75.3 % 47-70 [facility] Work Phone: WBC (Bld) [#/Vol] 9.7 10*3/uL 4.4-11.0 [facility] Work Phone: Blood erythrocytes count (nu mber/volume)on 06-07-2021 RBC (Bld) [#/Vol] 4.48 10*6/uL 4.6-6.2 [facility] Work Phone: Blood hemoglobin measurement (mass/volume)on 06-07-2021 Hemoglobin (Bld) [Mass/Vol] 13.8 g/dL 13.0-16.5 [facility] Work Phone: Blood lymphocytes/100 leukoc yteson 06-07-2021 Lymphocytes/100 WBC (Bld) 14.2 % 19-41 [facility] Work Phone: Blood monocytes/100 leukocyt eson 06-07-2021 Monocytes/100 WBC (Bld) 10.2 % 0-10 [facility] Work Phone: Blood platelet mean volumeon 06-07-2021 Platelet mean volume (Bld) [Entitic vol] 11.9 fL 6.2-12.0 [facility] Work Phone: Determination of erythrocyte mean corpuscular volume (MCV)on 06-07-2021 MCV (RBC) [Entitic vol] 92.9 fL 80-94 [facility] Work Phone: Hematocrit Auto (Bld) [Volum e fraction]on 06-07-2021 Hematocrit (Bld) [Volume fraction] 41.6 % 40-54 [facility] Work Phone: Laboratory - Hematology and Cell countson 06-07-2021 Erythrocyte distribution width (RBC) [Entitic vol] 43.8 fL 35.1-43.9 [facility] Work Phone: Erythrocyte distribution width (RBC) [Ratio] 12.8 % 11.6-14.6 [facility] Work Phone: Immature granulocytes/100 WBC (Bld) 0.100 % 0.0-0.9 [facility] Work Phone: Comment on above: IG% - Immature Granu locytes (promyelocytes, myelocytes and metamyelocytes) > 1% indicates that a LEFT SHIFT is Present. MCH (RBC) [Entitic mass] 30.8 pg 27.0-32.0 [facility] Work Phone: Nucleated RBC/100 WBC (Bld) [Ratio] 0 % 0-5 [facility] Work Phone: MCHC Auto (RBC) [Mass/Vol]on 06-07-2021 MCHC (RBC) [Mass/Vol] 33.2 g/dL 32-36 [facility] Work Phone: Platelets bldon 06-07-2021 Platelets (Bld) [#/Vol] 152 10*3/uL 150-450 [facility] Work Phone: Absolute lymphocyte counton 05-31-2021 Lymphocytes Auto (Unsp spec) [#/Vol] 1.72 10*3/uL 0.83-4.51 [facility] Work Phone: Basophil percentageon 2021 Basophils/100 WBC (Bld) 0.7 % 0-1 [facility] Work Phone: Eosinophils/100 WBC (Bld) 1.1 % 0-5 [facility] Work Phone: Neutrophils (Bld) [#/Vol] 3.3 10*3/uL 2.0-7.7 [facility] Work Phone: Neutrophils/100 WBC (Bld) 58.5 % 47-70 [facility] Work Phone: WBC (Bld) [#/Vol] 5.6 10*3/uL 4.4-11.0 [facility] Blood erythrocytes count (nu mber/volume)on 05-31-2021 RBC (Bld) [#/Vol] 4.44 10*6/uL 4.6-6.2 [facility] Work Phone: Blood hemoglobin measurement (mass/volume)on 05-31-2021 Hemoglobin (Bld) [Mass/Vol] 13.6 g/dL 13.0-16.5 [facility] Work Phone: Blood lymphocytes/100 leukoc yteson 05-31-2021 Lymphocytes/100 WBC (Bld) 30.7 % 19-41 [facility] Work Phone: Blood monocytes/100 leukocyt eson 05-31-2021 Monocytes/100 WBC (Bld) 8.6 % 0-10 [facility] Work Phone: Blood platelet mean volumeon 05-31-2021 Platelet mean volume (Bld) [Entitic vol] 11.2 fL 6.2-12.0 [facility] Work Phone: Determination of erythrocyte mean corpuscular volume (MCV)on 05-31-2021 MCV (RBC) [Entitic vol] 92.1 fL 80-94 [facility] Work Phone: Hematocrit Auto (Bld) [Volum e fraction]on 05-31-2021 Hematocrit (Bld) [Volume fraction] 40.9 % 40-54 [facility] Work Phone: Laboratory - Hematology and Cell countson 05-31-2021 Erythrocyte distribution width (RBC) [Entitic vol] 42.2 fL 35.1-43.9 [facility] Work Phone: Erythrocyte distribution width (RBC) [Ratio] 12.4 % 11.6-14.6 [facility] Work Phone: Immature granulocytes/100 WBC (Bld) 0.400 % 0.0-0.9 [facility] Work Phone: Comment on above: IG% - Immature Granu locytes (promyelocytes, myelocytes and metamyelocytes) > 1% indicates that a LEFT SHIFT is Present. MCH (RBC) [Entitic mass] 30.6 pg 27.0-32.0 [facility] Work Phone: Nucleated RBC/100 WBC (Bld) [Ratio] 0 % 0-5 [facility] Work Phone: MCHC Auto (RBC) [Mass/Vol]on 05-31-2021 MCHC (RBC) [Mass/Vol] 33.3 g/dL 32-36 [facility] Work Phone: Platelets bldon 05-31-2021 Platelets (Bld) [#/Vol] 189 10*3/uL 150-450 [facility] Work Phone: Absolute lymphocyte counton 05-24-2021 Lymphocytes Auto (Unsp spec) [#/Vol] 1.58 10*3/uL 0.83-4.51 [facility] Work Phone: [phone] Basophil percentageon 2021 Basophils/100 WBC (Bld) 0.8 % 0-1 [facility] Work Phone: Eosinophils/100 WBC (Bld) 2.4 % 0-5 [facility] Work Phone: Neutrophils (Bld) [#/Vol] 3.8 10*3/uL 2.0-7.7 [facility] Work Phone: Neutrophils/100 WBC (Bld) 60.3 % 47-70 [facility] Work Phone: WBC (Bld) [#/Vol] 6.3 10*3/uL 4.4-11.0 [facility]: Blood erythrocytes count (nu mber/volume)on 05-24-2021 RBC (Bld) [#/Vol] 4.50 10*6/uL 4.6-6.2 [facility] Work Phone: Blood hemoglobin measurement (mass/volume)on 05-24-2021 Hemoglobin (Bld) [Mass/Vol] 13.7 g/dL 13.0-16.5 [facility] Work Phone: Blood lymphocytes/100 leukoc yteson 05-24-2021 Lymphocytes/100 WBC (Bld) 25.0 % 19-41 [facility] Work Phone: Blood monocytes/100 leukocyt eson 05-24-2021 Monocytes/100 WBC (Bld) 11.2 % 0-10 [facility] Work Phone: Blood platelet mean volumeon 05-24-2021 Platelet mean volume (Bld) [Entitic vol] 11.3 fL 6.2-12.0 [facility] Work Phone: Determination of erythrocyte mean corpuscular volume (MCV)on 05-24-2021 MCV (RBC) [Entitic vol] 92.9 fL 80-94 [facility] Work Phone: Hematocrit Auto (Bld) [Volum e fraction]on 05-24-2021 Hematocrit (Bld) [Volume fraction] 41.8 % 40-54 [facility] Work Phone: Laboratory - Hematology and Cell countson 05-24-2021 Erythrocyte distribution width (RBC) [Entitic vol] 42.8 fL 35.1-43.9 [facility] Work Phone: Erythrocyte distribution width (RBC) [Ratio] 12.6 % 11.6-14.6 [facility] Work Phone: Immature granulocytes/100 WBC (Bld) 0.300 % 0.0-0.9 [facility] Work Phone: Comment on above: IG% - Immature Granu locytes (promyelocytes, myelocytes and metamyelocytes) > 1% indicates that a LEFT SHIFT is Present. MCH (RBC) [Entitic mass] 30.4 pg 27.0-32.0 [facility] Work Phone: Nucleated RBC/100 WBC (Bld) [Ratio] 0 % 0-5 [facility] Work Phone: MCHC Auto (RBC) [Mass/Vol]on 05-24-2021 MCHC (RBC) [Mass/Vol] 32.8 g/dL 32-36 [facility] Work Phone: Platelets bldon 05-24-2021 Platelets (Bld) [#/Vol] 207 10*3/uL 150-450 [facility] Work Phone: Absolute lymphocyte counton 05-17-2021 Lymphocytes Auto (Unsp spec) [#/Vol] 1.59 10*3/uL 0.83-4.51 [facility] Work Phone: Basophil percentageon 2021 Basophils/100 WBC (Bld) 0.7 % 0-1 [facility] Work Phone: Eosinophils/100 WBC (Bld) 1.7 % 0-5 [facility] Work Phone: Neutrophils (Bld) [#/Vol] 3.5 10*3/uL 2.0-7.7 [facility] Work Phone: Neutrophils/100 WBC (Bld) 59.5 % 47-70 [facility] Work Phone: WBC (Bld) [#/Vol] 5.9 10*3/uL 4.4-11.0 [facility] Work Phone: Blood erythrocytes count (nu mber/volume)on 05-17-2021 RBC (Bld) [#/Vol] 4.35 10*6/uL 4.6-6.2 [facility] Work Phone: Blood hemoglobin measurement (mass/volume)on 05-17-2021 Hemoglobin (Bld) [Mass/Vol] 13.4 g/dL 13.0-16.5 [facility] Work Phone: Blood lymphocytes/100 leukoc yteson 05-17-2021 Lymphocytes/100 WBC (Bld) 26.9 % 19-41 [facility] Work Phone: Blood monocytes/100 leukocyt eson 05-17-2021 Monocytes/100 WBC (Bld) 11.0 % 0-10 [facility] Work Phone: Blood platelet mean volumeon 05-17-2021 Platelet mean volume (Bld) [Entitic vol] 11.5 fL 6.2-12.0 [facility] Work Phone: Determination of erythrocyte mean corpuscular volume (MCV)on 05-17-2021 MCV (RBC) [Entitic vol] 92.9 fL 80-94 [facility] Work Phone: Hematocrit Auto (Bld) [Volum e fraction]on 05-17-2021 Hematocrit (Bld) [Volume fraction] 40.4 % 40-54 [facility] Work Phone: Laboratory - Hematology and Cell countson 05-17-2021 Erythrocyte distribution width (RBC) [Entitic vol] 43.4 fL 35.1-43.9 [facility] Work Phone: Erythrocyte distribution width (RBC) [Ratio] 12.7 % 11.6-14.6 [facility] Work Phone: Immature granulocytes/100 WBC (Bld) 0.200 % 0.0-0.9 [facility] Work Phone: Comment on above: IG% - Immature Granu locytes (promyelocytes, myelocytes and metamyelocytes) > 1% indicates that a LEFT SHIFT is Present. MCH (RBC) [Entitic mass] 30.8 pg 27.0-32.0 [facility] Work Phone: Nucleated RBC/100 WBC (Bld) [Ratio] 0 % 0-5 [facility] Work Phone: MCHC Auto (RBC) [Mass/Vol]on 05-17-2021 MCHC (RBC) [Mass/Vol] 33.2 g/dL 32-36 [facility] Work Phone: Platelets bldon 05-17-2021 Platelets (Bld) [#/Vol] 171 10*3/uL 150-450 [facility] Work Phone: ED Provider Noteon 2 ED Provider Note Emergency Department Encounter [facility] ED Patient: Kathya Hooper : 1955 Date of Evaluation: 05/15/2021 ED Supervising Physician: Timothy uBrton DO This patient was seen during a [...] Timothy Burton DO 05/15/21 1530 Normal [facility] e[facility]GENCY dEPARTMENT eNCOUnter Pt [...] of Hea (more content not included)... Normal [facility] Basophil percentageon 2021 Chloride [Moles/Vol] 105 mmol/L 98-107 [facility] Work Phone: Glucose [Mass/Vol] 96 mg/dL 74-106 [facility] Work Phone: Potassium [Moles/Vol] 3.5 mmol/L 3.5-5.1 [facility] Work Phone: Sodium [Moles/Vol] 141 mmol/L 136-145 [facility] Work Phone: Laboratory - Chemistry and C hemistry - challengeon 05-14-2021 CO2 [Moles/Vol] 30.0 mmol/L 21.0-32.0 [facility] Work Phone: Urea nitrogen/Creatinine [Mass ratio] 39.2 mg/mg 10-20 [facility] Work Phone: No Panel Informationon 05-14 Estimated GFR (MDRD) Amer 210 mL/min >60 [facility] Work Phone: Comment on above: GFR Calc Estimated GFR (MDRD) Non-Af Amer 174 mL/min >60 [facility] Work Phone: Comment on above: Non- GFR Calc Serum or plasma calcium gordy urement (mass/volume)on 05-14-2021 Calcium [Mass/Vol] 8.4 mg/dL 8.5-10.1 [facility] Work Phone: Serum or plasma creatinine m easurement (mass/volume)on 05-14-2021 Creatinine [Mass/Vol] 0.51 mg/dL 0.70-1.30 [facility] Work Phone: Comment on above: The validity of the calculated GFR & GFRAA in patients over 70 years has not been determined. Clinical correlation is essential. Serum or plasma urea nitroge n measurement (mass/volume)on 05-14-2021 Urea nitrogen [Mass/Vol] 20 mg/dL 7-18 [facility] Work Phone: Thin prep Papanicolaou smear with manual screeningon 05-14-2021 Thin prep Papanicolaou smear with manual screening 6 5-15 [facility] Work Phone: Absolute lymphocyte counton 05-10-2021 Lymphocytes Auto (Unsp spec) [#/Vol] 1.65 10*3/uL 0.83-4.51 [facility] Work Phone: Basophil percentageon 2021 Basophils/100 WBC (Bld) 0.5 % 0-1 [facility] Work Phone: Eosinophils/100 WBC (Bld) 0.7 % 0-5 [facility] Work Phone: Neutrophils (Bld) [#/Vol] 5.6 10*3/uL 2.0-7.7 [facility] Work Phone: Neutrophils/100 WBC (Bld) 69.5 % 47-70 [facility] Work Phone: WBC (Bld) [#/Vol] 8.1 10*3/uL 4.4-11.0 [facility] Work Phone: Blood erythrocytes count (nu mber/volume)on 05-10-2021 RBC (Bld) [#/Vol] 4.52 10*6/uL 4.6-6.2 [facility] Work Phone: Blood hemoglobin measurement (mass/volume)on 05-10-2021 Hemoglobin (Bld) [Mass/Vol] 13.8 g/dL 13.0-16.5 [facility] Work Phone: Blood lymphocytes/100 leukoc yteson 05-10-2021 Lymphocytes/100 WBC (Bld) 20.4 % 19-41 [facility] Work Phone: Blood monocytes/100 leukocyt eson 05-10-2021 Monocytes/100 WBC (Bld) 8.4 % 0-10 [facility] Work Phone: Blood platelet mean volumeon 05-10-2021 Platelet mean volume (Bld) [Entitic vol] 11.3 fL 6.2-12.0 [facility] Work Phone: Determination of erythrocyte mean corpuscular volume (MCV)on 05-10-2021 MCV (RBC) [Entitic vol] 91.8 fL 80-94 [facility] Work Phone: Hematocrit Auto (Bld) [Volum e fraction]on 05-10-2021 Hematocrit (Bld) [Volume fraction] 41.5 % 40-54 [facility] Work Phone: Laboratory - Hematology and Cell countson 05-10-2021 Erythrocyte distribution width (RBC) [Entitic vol] 42.9 fL 35.1-43.9 [facility] Work Phone: Erythrocyte distribution width (RBC) [Ratio] 12.8 % 11.6-14.6 [facility] Work Phone: Immature granulocytes/100 WBC (Bld) 0.500 % 0.0-0.9 [facility] Work Phone: Comment on above: IG% - Immature Granu locytes (promyelocytes, myelocytes and metamyelocytes) > 1% indicates that a LEFT SHIFT is Present. MCH (RBC) [Entitic mass] 30.5 pg 27.0-32.0 [facility] Work Phone: [phone] Nucleated RBC/100 WBC (Bld) [Ratio] 0 % 0-5 [facility] Work Phone: [phone] MCHC Auto (RBC) [Mass/Vol]on 05-10-2021 MCHC (RBC) [Mass/Vol] 33.3 g/dL 32-36 [facility] Work Phone: [phone] Platelets bldon 05-10-2021 Platelets (Bld) [#/Vol] 191 10*3/uL 150-450 [facility] Work Phone: [phone] Absolute lymphocyte counton 05-03-2021 Lymphocytes Auto (Unsp spec) [#/Vol] 1.69 10*3/uL 0.83-4.51 [facility] Work Phone: [phone] Basophil percentageon 2021 Basophils/100 WBC (Bld) 0.6 % 0-1 [facility] Work Phone: Eosinophils/100 WBC (Bld) 0.7 % 0-5 [facility] Work Phone: [phone] Neutrophils (Bld) [#/Vol] 4.6 10*3/uL 2.0-7.7 [facility] Work Phone: [phone] Neutrophils/100 WBC (Bld) 64.4 % 47-70 [facility] Work Phone: [phone] WBC (Bld) [#/Vol] 7.2 10*3/uL 4.4-11.0 [facility] Work Phone: [phone] Blood erythrocytes count (nu mber/volume)on 05-03-2021 RBC (Bld) [#/Vol] 4.55 10*6/uL 4.6-6.2 [facility] Work Phone: [phone] Blood hemoglobin measurement (mass/volume)on 05-03-2021 Hemoglobin (Bld) [Mass/Vol] 14.0 g/dL 13.0-16.5 [facility] Work Phone: Blood lymphocytes/100 leukoc yteson 05-03-2021 Lymphocytes/100 WBC (Bld) 23.6 % 19-41 [facility] Work Phone: Blood monocytes/100 leukocyt eson 05-03-2021 Monocytes/100 WBC (Bld) 10.3 % 0-10 [facility] Work Phone: Blood platelet mean volumeon 05-03-2021 Platelet mean volume (Bld) [Entitic vol] 11.7 fL 6.2-12.0 [facility] Work Phone: Determination of erythrocyte mean corpuscular volume (MCV)on 05-03-2021 MCV (RBC) [Entitic vol] 93.2 fL 80-94 [facility] Work Phone: Hematocrit Auto (Bld) [Volum e fraction]on 05-03-2021 Hematocrit (Bld) [Volume fraction] 42.4 % 40-54 [facility] Work Phone: Laboratory - Hematology and Cell countson 05-03-2021 Erythrocyte distribution width (RBC) [Entitic vol] 44.2 fL 35.1-43.9 [facility] Work Phone: Erythrocyte distribution width (RBC) [Ratio] 13.1 % 11.6-14.6 [facility] Work Phone: Immature granulocytes/100 WBC (Bld) 0.400 % 0.0-0.9 [facility] Work Phone: Comment on above: IG% - Immature Granu locytes (promyelocytes, myelocytes and metamyelocytes) > 1% indicates that a LEFT SHIFT is Present. MCH (RBC) [Entitic mass] 30.8 pg 27.0-32.0 [facility] Work Phone: Nucleated RBC/100 WBC (Bld) [Ratio] 0 % 0-5 [facility] Work Phone: MCHC Auto (RBC) [Mass/Vol]on 05-03-2021 MCHC (RBC) [Mass/Vol] 33.0 g/dL 32-36 [facility] Work Phone: Platelets bldon 05-03-2021 Platelets (Bld) [#/Vol] 175 10*3/uL 150-450 [facility] Work Phone: Absolute lymphocyte counton 04-26-2021 Lymphocytes Auto (Unsp spec) [#/Vol] 1.68 10*3/uL 0.83-4.51 [facility] Work Phone: Basophil percentageon 2020 Eosinophils/100 WBC (Bld) 1.1 % 0-5 [facility] Work Phone: Neutrophils (Bld) [#/Vol] 4.5 10*3/uL 2.0-7.7 [facility] Work Phone: WBC (Bld) [#/Vol] 7.2 10*3/uL 4.4-11.0 [facility] Work Phone: Blood erythrocytes count (nu mber/volume)on 04-26-2021 RBC (Bld) [#/Vol] 4.32 10*6/uL 4.6-6.2 [facility] Work Phone: Blood hemoglobin measurement (mass/volume)on 04-26-2021 Hemoglobin (Bld) [Mass/Vol] 13.5 g/dL 13.0-16.5 [facility] Work Phone: Blood lymphocytes/100 leukoc yteson 04-26-2021 Lymphocytes/100 WBC (Bld) 23.5 % 19-41 [facility] Work Phone: [phone] Blood monocytes/100 leukocyt eson 04-26-2021 Monocytes/100 WBC (Bld) 11.0 % 0-10 [facility] Work Phone: Blood platelet mean volumeon 04-26-2021 Platelet mean volume (Bld) [Entitic vol] 11.0 fL 6.2-12.0 [facility] Work Phone: Determination of erythrocyte mean corpuscular volume (MCV)on 04-26-2021 MCV (RBC) [Entitic vol] 93.3 fL 80-94 [facility] Work Phone: Hematocrit Auto (Bld) [Volum e fraction]on 04-26-2021 Hematocrit (Bld) [Volume fraction] 40.3 % 40-54 [facility] Work Phone: Laboratory - Hematology and Cell countson 04-26-2021 Basophils/100 WBC (Unsp spec) 0.6 % 0-1 [facility] Work Phone: Erythrocyte distribution width (RBC) [Entitic vol] 45.8 fL 35.1-43.9 [facility] Work Phone: Erythrocyte distribution width (RBC) [Ratio] 13.2 % 11.6-14.6 [facility] Work Phone: Immature granulocytes/100 WBC (Bld) 0.600 % 0.0-0.9 [facility] Work Phone: Comment on above: IG% - Immature Granu locytes (promyelocytes, myelocytes and metamyelocytes) > 1% indicates that a LEFT SHIFT is Present. MCH (RBC) [Entitic mass] 31.3 pg 27.0-32.0 [facility] Work Phone: Neutrophils/100 WBC (Bld) 63.2 % 47-70 [facility] Work Phone: Nucleated RBC/100 WBC (Bld) [Ratio] 0 % 0-5 [facility] Work Phone: MCHC Auto (RBC) [Mass/Vol]on 04-26-2021 MCHC (RBC) [Mass/Vol] 33.5 g/dL 32-36 [facility] Work Phone: [phone] Platelets bldon 04-26-2021 Platelets (Bld) [#/Vol] 172 10*3/uL 150-450 [facility] Work Phone: Absolute lymphocyte counton 04-19-2021 Lymphocytes Auto (Unsp spec) [#/Vol] 1.31 10*3/uL 0.83-4.51 [facility] Work Phone: Basophil percentageon 2020 Eosinophils/100 WBC (Bld) 2.8 % 0-5 [facility] Work Phone: Neutrophils (Bld) [#/Vol] 3.0 10*3/uL 2.0-7.7 [facility] Work Phone: WBC (Bld) [#/Vol] 5.0 10*3/uL 4.4-11.0 [facility] Work Phone: Blood erythrocytes count (nu mber/volume)on 04-19-2021 RBC (Bld) [#/Vol] 4.26 10*6/uL 4.6-6.2 [facility] Work Phone: Blood hemoglobin measurement (mass/volume)on 04-19-2021 Hemoglobin (Bld) [Mass/Vol] 13.2 g/dL 13.0-16.5 [facility] Work Phone: Blood lymphocytes/100 leukoc yteson 04-19-2021 Lymphocytes/100 WBC (Bld) 26.1 % 19-41 [facility] Work Phone: Blood monocytes/100 leukocyt eson 04-19-2021 Monocytes/100 WBC (Bld) 10.0 % 0-10 [facility] Work Phone: Blood platelet mean volumeon 04-19-2021 Platelet mean volume (Bld) [Entitic vol] 10.9 fL 6.2-12.0 [facility] Work Phone: Determination of erythrocyte mean corpuscular volume (MCV)on 04-19-2021 MCV (RBC) [Entitic vol] 93.7 fL 80-94 [facility] Work Phone: Hematocrit Auto (Bld) [Volum e fraction]on 04-19-2021 Hematocrit (Bld) [Volume fraction] 39.9 % 40-54 [facility] Work Phone: Laboratory - Hematology and Cell countson 04-19-2021 Basophils/100 WBC (Unsp spec) 1.0 % 0-1 [facility] Work Phone: [phone] Erythrocyte distribution width (RBC) [Entitic vol] 46.7 fL 35.1-43.9 [facility] Work Phone: Erythrocyte distribution width (RBC) [Ratio] 13.7 % 11.6-14.6 [facility] Work Phone: [phone] Immature granulocytes/100 WBC (Bld) 0.400 % 0.0-0.9 [facility] Work Phone: [phone] Comment on above: IG% - Immature Granu locytes (promyelocytes, myelocytes and metamyelocytes) > 1% indicates that a LEFT SHIFT is Present. MCH (RBC) [Entitic mass] 31.0 pg 27.0-32.0 [facility] Work Phone: Neutrophils/100 WBC (Bld) 59.7 % 47-70 [facility] Work Phone: Nucleated RBC/100 WBC (Bld) [Ratio] 0 % 0-5 [facility] Work Phone: MCHC Auto (RBC) [Mass/Vol]on 04-19-2021 MCHC (RBC) [Mass/Vol] 33.1 g/dL 32-36 [facility] Work Phone: [phone] Platelets bldon 04-19-2021 Platelets (Bld) [#/Vol] 165 10*3/uL 150-450 [facility] Work Phone: [phone] Absolute lymphocyte counton 04-12-2021 Lymphocytes Auto (Unsp spec) [#/Vol] 1.41 10*3/uL 0.83-4.51 [facility] Work Phone: [phone] Basophil percentageon 2020 Bilirubin [Mass/Vol] 0.40 mg/dL 0.20-1.00 [facility] Work Phone: Comment on above: For patients on eltr ombopag therapy, use of Dimension Jackson TBIL is not recommended. Eosinophils/100 WBC (Bld) 0.9 % 0-5 [facility] Work Phone: Neutrophils (Bld) [#/Vol] 3.4 10*3/uL 2.0-7.7 [facility] Work Phone: Protein [Mass/Vol] 5.7 g/dL 6.4-8.2 [facility] Work Phone: WBC (Bld) [#/Vol] 5.5 10*3/uL 4.4-11.0 [facility] Work Phone: Blood erythrocytes count (nu mber/volume)on 04-12-2021 RBC (Bld) [#/Vol] 4.09 10*6/uL 4.6-6.2 [facility] Work Phone: Blood hemoglobin measurement (mass/volume)on 04-12-2021 Hemoglobin (Bld) [Mass/Vol] 12.4 g/dL 13.0-16.5 [facility] Work Phone: Blood lymphocytes/100 leukoc yteson 04-12-2021 Lymphocytes/100 WBC (Bld) 25.9 % 19-41 [facility] Work Phone: [phone] Blood monocytes/100 leukocyt eson 04-12-2021 Monocytes/100 WBC (Bld) 9.2 % 0-10 [facility] Work Phone: Blood platelet mean volumeon 04-12-2021 Platelet mean volume (Bld) [Entitic vol] 11.1 fL 6.2-12.0 [facility] Work Phone: Determination of erythrocyte mean corpuscular volume (MCV)on 04-12-2021 MCV (RBC) [Entitic vol] 93.4 fL 80-94 [facility] Work Phone: Direct bilirubinon Bilirubin.direct [Mass/Vol] 0.08 mg/dL 0.00-0.30 [facility] Work Phone: [phone] Hematocrit Auto (Bld) [Volum e fraction]on 04-12-2021 Hematocrit (Bld) [Volume fraction] 38.2 % 40-54 [facility] Work Phone: Laboratory - Chemistry and C hemistry - challengeon 04-12-2021 ALP [Catalytic activity/Vol] 101 U/L 45-117 [facility] Work Phone: [phone] ALT [Catalytic activity/Vol] 30 U/L 16-61 [facility] Work Phone: [phone] Globulin (S) [Mass/Vol] 2.9 g/dL 2.2-4.2 [facility] Work Phone: [phone] Laboratory - Hematology and Cell countson 04-12-2021 Basophils/100 WBC (Unsp spec) 0.6 % 0-1 [facility] Work Phone: [phone] Erythrocyte distribution width (RBC) [Entitic vol] 46.7 fL 35.1-43.9 [facility] Work Phone: [phone] Erythrocyte distribution width (RBC) [Ratio] 13.7 % 11.6-14.6 [facility] Work Phone: [phone] Immature granulocytes/100 WBC (Bld) 0.400 % 0.0-0.9 [facility] Work Phone: [phone] Comment on above: IG% - Immature Granu locytes (promyelocytes, myelocytes and metamyelocytes) > 1% indicates that a LEFT SHIFT is Present. MCH (RBC) [Entitic mass] 30.3 pg 27.0-32.0 [facility] Work Phone: [phone] Neutrophils/100 WBC (Bld) 63.0 % 47-70 [facility] Work Phone: [phone] Nucleated RBC/100 WBC (Bld) [Ratio] 0 % 0-5 [facility] Work Phone: [phone] MCHC Auto (RBC) [Mass/Vol]on 04-12-2021 MCHC (RBC) [Mass/Vol] 32.5 g/dL 32-36 [facility] Work Phone: Platelets bldon 04-12-2021 Platelets (Bld) [#/Vol] 173 10*3/uL 150-450 [facility] Work Phone: Serum or plasma albumin gordy urement (mass/volume)on 04-12-2021 Albumin [Mass/Vol] 2.8 g/dL 3.2-5.0 [facility] Work Phone: Thin prep Papanicolaou smear with manual screeningon 04-12-2021 Thin prep Papanicolaou smear with manual screening 15 U/L 15-37 [facility] Work Phone: Absolute lymphocyte counton 04-07-2021 Lymphocytes Auto (Unsp spec) [#/Vol] 1.55 10*3/uL 0.83-4.51 [facility] Work Phone: Basophil percentageon 2020 Eosinophils/100 WBC (Bld) 0.7 % 0-5 [facility] Work Phone: Neutrophils (Bld) [#/Vol] 5.3 10*3/uL 2.0-7.7 [facility] Work Phone: WBC (Bld) [#/Vol] 8.1 10*3/uL 4.4-11.0 [facility] Work Phone: Blood erythrocytes count (nu mber/volume)on 04-07-2021 RBC (Bld) [#/Vol] 4.18 10*6/uL 4.6-6.2 [facility] Work Phone: Blood hemoglobin measurement (mass/volume)on 04-07-2021 Hemoglobin (Bld) [Mass/Vol] 12.9 g/dL 13.0-16.5 [facility] Work Phone: Blood lymphocytes/100 leukoc yteson 04-07-2021 Lymphocytes/100 WBC (Bld) 19.2 % 19-41 [facility] Work Phone: Blood monocytes/100 leukocyt eson 04-07-2021 Monocytes/100 WBC (Bld) 13.0 % 0-10 [facility] Work Phone: Blood platelet mean volumeon 04-07-2021 Platelet mean volume (Bld) [Entitic vol] 10.9 fL 6.2-12.0 [facility] Work Phone: Determination of erythrocyte mean corpuscular volume (MCV)on 04-07-2021 MCV (RBC) [Entitic vol] 92.6 fL 80-94 [facility] Work Phone: Hematocrit Auto (Bld) [Volum e fraction]on 04-07-2021 Hematocrit (Bld) [Volume fraction] 38.7 % 40-54 [facility] Work Phone: Laboratory - Hematology and Cell countson 04-07-2021 Basophils/100 WBC (Unsp spec) 0.6 % 0-1 [facility] Work Phone: Erythrocyte distribution width (RBC) [Entitic vol] 45.8 fL 35.1-43.9 [facility] Work Phone: Erythrocyte distribution width (RBC) [Ratio] 13.5 % 11.6-14.6 [facility] Work Phone: Immature granulocytes/100 WBC (Bld) 0.500 % 0.0-0.9 [facility] Work Phone: Comment on above: IG% - Immature Granu locytes (promyelocytes, myelocytes and metamyelocytes) > 1% indicates that a LEFT SHIFT is Present. MCH (RBC) [Entitic mass] 30.9 pg 27.0-32.0 [facility] Work Phone: Neutrophils/100 WBC (Bld) 66.0 % 47-70 [facility] Work Phone: Nucleated RBC/100 WBC (Bld) [Ratio] 0 % 0-5 [facility] Work Phone: MCHC Auto (RBC) [Mass/Vol]on 04-07-2021 MCHC (RBC) [Mass/Vol] 33.3 g/dL 32-36 [facility] Work Phone: Platelets bldon 04-07-2021 Platelets (Bld) [#/Vol] 210 10*3/uL 150-450 [facility] Work Phone: CULTURE BLOODon 03-25-2021 Microscopic examination of blood, culture CULTURE BLOOD --> Status: F No growth at 5 days. Normal [facility] Comment on above: Performed By: #### C /BLD ####[facility] [place], [place] CULTURE BLOOD (Two)on 2020 Microscopic examination of blood, culture CULTURE BLOOD (Two) --> Status: F No growth at 5 days. Normal [facility] Comment on above: Performed By: #### C /BLT ####[facility] [address] [place], [place] Basic Metabolic Panelon 2 Calcium [Mass/Vol] 8.8 mg/dL Normal 8.4-10.4 [facility] Comment on above: Performed By: #### H EMDF, BMP3 #### [facility] [address] [place] [address] Glucose [Mass/Vol] 103 mg/dL High 70-100 [facility] Comment on above: Performed By: #### H EMDF, BMP3 #### [facility] [address] [place] [address] Anion gap [Moles/Vol] 5 mmol/L Normal 3-13 [facility] Comment on above: Performed By: #### H EMDF, BMP3 #### [facility] [address] [place] [address] CO2 [Moles/Vol] 26 mmol/L Normal 22-30 [facility] Comment on above: Performed By: #### H EMDF, BMP3 #### [facility] [address] [place] [address] Creatinine [Mass/Vol] 0.49 mg/dL Low 0.52-1.25 [facility] Comment on above: Performed By: #### H KORIN BRAR3 #### [facility] [address] [place] [address] eGFR OTHER > 90.0 Normal >60 [facility] Comment on above: Result Comment: KDIG [...] secretion. Performed By: #### KORIN BLANCAS3 #### [facility] [address] [place] [address] GFR/1.73 sq M.predicted among blacks MDRD (S/P/Bld) [Vol rate/Area] mL/min/{1.73_m2} Normal >60 [facility] Comment on above: Performed By: #### KORIN BLANCAS3 #### [facility] [address] [place] [address] Urea nitrogen [Mass/Vol] 30 mg/dL High 7-17 [facility] Comment on above: Performed By: #### H KORIN BRAR3 #### [facility] [address] [place] [address] Chloride [Moles/Vol] 112 mmol/L High 98-107 [facility] Comment on above: Performed By: #### KORIN BLANCAS3 #### [facility] [address] [place] [address] Potassium [Moles/Vol] 4.1 mmol/L Normal 3.5-5.1 [facility] Comment on above: Performed By: #### H KORIN BRAR3 #### [facility] [address] [place] [address] Sodium [Moles/Vol] 142 mmol/L Normal 135-145 [facility] Comment on above: Performed By: #### H MAYKEL, BMP3 #### [facility] [address] [place] [address] Anion gap [Moles/Vol] 5 mmol/L 3 - 13 mmol/L [facility] Work Phone: Calcium [Mass/Vol] 8.8 mg/dL 8.4 - 10. 4 mg/dL [facility] Work Phone: Chloride [Moles/Vol] 112 mmol/L High 98 - 10 7 mmol/L [facility] Work Phone: CO2 [Moles/Vol] 26 mmol/L 22 - 30 mmol/L [facility] Work Phone: Creatinine [Mass/Vol] 0.49 mg/dL Low 0.52 - 1.25 mg/dL [facility] Work Phone: EGFR IF NonAfrican Hungarian >90.0 >60 mL/min [facility] Work Phone: Comment on above: KDIGO [...] MDRD (S/P/Bld) [Vol rate/Area] mL/min/{1.73_m2} >60 mL/min [facility] Work Phone: Glucose [Mass/Vol] 103 mg/dL High 70 - 100 mg/dL [facility] Work Phone: Interpretation and review of laboratory results Abnormal [facility] Work Phone: Potassium [Moles/Vol] 4.1 mmol/L 3.5 - 5.1 mmol/L [facility] Work Phone: Sodium [Moles/Vol] 142 mmol/L 135 - 145 mmol/L [facility] Work Phone: Urea nitrogen (BldV) [Mass/Vol] 30 mg/dL High 7 - 17 mg/dL [facility] Work Phone: Test Performed by [facility] [place] [id number] [place] [address] LAB [facility] Work Phone: CBC Auto Differentialon 11-2 Hematocrit (Bld) [Volume fraction] 35.0 % Low 40.0 - 52.0 % [facility] Work Phone: Hemoglobin.gastrointest inal spec 1 Ql (Stl) 11.7 g/dL Low 13.0 - 18.0 g/dL [facility] Work Phone: Interpretation and review of laboratory results Abnormal [facility] Work Phone: MCH (RBC) [Entitic mass] 31.0 pg 26.0 - 34.0 pg [facility] Work Phone: MCHC (RBC) [Mass/Vol] 33.4 % 32.0 - 36.0 % [facility] Work Phone: MCV (RBC) [Entitic vol] 92.7 fL 80.0 - 98.0 fL [facility] Work Phone: Platelet distribution width (Bld) [Ratio] 13.4 % 11.5 - 14.5 % [facility] Work Phone: Platelet mean volume (Bld) [Entitic vol] 8.6 fL 7.4 - 10.4 fL [facility] Work Phone: Platelets (Bld) [#/Vol] 236 10*3/uL 140 - 440 10*3/uL [facility] Work Phone: RBC (Bld) [#/Vol] 3.77 10*6/uL Low 4.40 - 5.9 0 10*6/uL [facility] Work Phone: WBC (Bld) [#/Vol] 12.8 10*3/uL High 3.6 - 10.7 10*3/uL [facility] Work Phone: Test [facility] by [facility], [address] [place], [place] [id number] [place] [address] LAB [facility] Work Phone: Glucose,Bedsideon 03-24-2021 Glucose [Mass/Vol] 93 mg/dL Normal 70-100 [facility] Comment on above: Result Comment: Test performed by glucose meter. Results may be 10%-15% lower than serum/plasma values. (CLIA ID [id number]) Performed By: #### H KORIN BRAR3 #### [facility] [address] [place] [address] Glucose [Mass/Vol] 166 mg/dL High 70-100 [facility] Comment on above: Result Comment: Test performed by glucose meter. Results may be 10%-15% lower than serum/plasma values. (CLIA ID [id number]) Performed By: #### B GLU ####[facility] [place] [address] Hemogram w/ Autodiffon 03-24 Erythrocyte distribution width (RBC) [Ratio] 13.4 % Normal 11.5-14.5 [facility] Comment on above: Performed By: #### H ALCIRAF, BMP3 #### [facility] [address] [place] [address] Hematocrit (Bld) [Volume fraction] 35.0 % Low 40.0-52.0 [facility] Comment on above: Performed By: #### H EMDF, BMP3 #### [facility] [address] [place] [address] Hemoglobin (Bld) [Mass/Vol] 11.7 g/dL Low 13.0-18.0 [facility] Comment on above: Performed By: #### H EMDF, BMP3 #### [facility] [address] [place] [address] MCH (RBC) [Entitic mass] 31.0 pg Normal 26.0-34.0 [facility] Comment on above: Performed By: #### H EMDF, BMP3 #### [facility] [address] [place] [address] MCHC 33.4 % Normal 32.0-36.0 [facility] Comment on above: Performed By: #### H EMDF, BMP3 #### [facility] [address] [place] [address] MCV (RBC) [Entitic vol] 92.7 fL Normal 80.0-98.0 [facility] Comment on above: Performed By: #### H EMDF, BMP3 #### [facility] [address] [place] [address] Platelet mean volume (Bld) [Entitic vol] 8.6 fL Normal 7.4-10.4 [facility] Comment on above: Performed By: #### H EMDF, BMP3 #### [facility] [address] [place] [address] Platelets (Bld) [#/Vol] 236 10*3/uL Normal 140-440 [facility] Comment on above: Performed By: #### H EMDF, BMP3 #### [facility] [address] [place] [address] RBC (Bld) [#/Vol] 3.77 10*6/uL Low 4.40-5.90 [facility] Comment on above: Performed By: #### H EMDF, BMP3 #### [facility] [address] [place] [address] WBC (Bld) [#/Vol] 12.8 10*3/uL High 3.6-10.7 [facility] Comment on above: Performed By: #### H EMDF, BMP3 #### [facility] [address] [place] [address] Manual Diffon 03-24-2021 Abs Lymph Cnt 1.7 10*3/uL Normal 1.1-4.5 [facility] Comment on above: Performed By: #### H EMDF, BMP3 #### [facility] [address] [place] [address] Abs Monocyte Cnt 0.8 10*3/uL Normal 0.2-1.1 [facility] Comment on above: Performed By: #### H EMDF, BMP3 #### [facility] [address] [place] [address] Abs Neutrophile Cnt 10.1 10*3/uL High 2.2-8.2 [facility] Comment on above: Performed By: #### H EMDF, BMP3 #### [facility] [address] [place] [address] Anisocytosis Slight Normal [facility] Comment on above: Performed By: #### H EMDF, BMP3 #### [facility] [address] [place] [address] Atypical Lymphocytes 2 % Abnormal <1 [facility] Comment on above: Performed By: #### H EMDF, BMP3 #### [facility] [address] [place] [address] [place] Cells Slight Normal [facility] Comment on above: Performed By: #### H EMDF, BMP3 #### [facility] [address] [place] [address] Lymphocytes 11 % Low 20-40 [facility] Comment on above: Performed By: #### H EMDF, BMP3 #### [facility] [address] [place] [address] Monocytes 6 % Normal 2-10 [facility] Comment on above: Performed By: #### H EMDF, BMP3 #### [facility] [address] [place] [address] Myelocytes 2 % Abnormal <1 [facility] Comment on above: Performed By: #### H EMDF, BMP3 #### [facility] [address] [place] [address] Ovalocytes Slight Normal [facility] Comment on above: Performed By: #### H EMDF, BMP3 #### [facility] [address] [place] [address] Poikilocytosis Slight Normal [facility] Comment on above: Performed By: #### H EMDF, BMP3 #### [facility] [address] [place] [address] Polychromasia Slight Normal [facility] Comment on above: Performed By: #### H EMDF, BMP3 #### [facility] [address] [place] [address] RBC Morphology ABNORMAL Normal [facility] Comment on above: Performed By: #### H EMDF, BMP3 #### [facility] [address] [place] [address] Seg Neutrophils 79 % Normal 40-80 [facility] Comment on above: Performed By: #### H EMDF, BMP3 #### [facility] [address] [place] [address] Tear Drop Forms Slight Normal [facility] Comment on above: Performed By: #### H EMDF, BMP3 #### [facility] [address] [place] [address] Abs Baso Cnt 0.0 10*3/uL Normal 0.0-0.2 [facility] Comment on above: Performed By: #### H EMDF, BMP3 #### [facility] [address] [place] [address] Abs Eosin Cnt 0.0 10*3/uL Normal 0.0-0.5 [facility] Comment on above: Performed By: #### H EMDF, BMP3 #### [facility] [address] [place] [address] Bands 0 % Normal 0-3 [facility] Comment on above: Performed By: #### H EMDF, BMP3 #### [facility] [address] [place] [address] Basophils 0 % Normal 0-2 [facility] Comment on above: Performed By: #### H EMDF, BMP3 #### [facility] [address] [place] [address] Cells counted 100 Normal [facility] Comment on above: Performed By: #### H EMDF, BMP3 #### [facility] [address] [place] [address] Eosinophils 0 % Low 1-6 [facility] Comment on above: Performed By: #### H EMDF, BMP3 #### [facility] [address] [place] [address] Manual Differentialon 2020 Absolute Baso # 0.0 10*3/uL 0.0 - 0.2 10*3/uL [facility] Work Phone: Absolute Eos # 0.0 10*3/uL 0.0 - 0.5 10*3/uL [facility] Work Phone: [phone] Absolute Lymph # 1.7 10*3/uL 1.1 - 4.5 10*3/uL [facility] Work Phone: [phone] Absolute [place] # 0.8 10*3/uL 0.2 - 1.1 10*3/uL [facility] Work Phone: [phone] Absolute Neut # 10.1 10*3/uL High 2.2 - 8.2 10*3/uL [facility] Work Phone: [phone] Anisocytosis Slight [facility] Work Phone: [phone] Atypical Lymphocytes 2 % Abnormal <1 [facility] Work Phone: [phone] Bands 0 % 0 - 3 % [facility] Work Phone: [phone] Basophils/100 WBC (Bld) 0 % 0 - 2 % [facility] Work Phone: [phone] [place] Cells Slight [facility] Work Phone: Eosinophils/100 WBC (Bld) 0 % Low 1 - 6 % [facility] Work Phone: Interpretation and review of laboratory results Abnormal [facility] Work Phone: [phone] Lymphocytes/100 WBC (Bld) 11 % Low 20 - 40 % [facility] Work Phone: [phone] Monocytes/100 WBC (Bld) 6 % 2 - 10 % [facility] Work Phone: Myelocytes 2 % Abnormal <1 [facility] Work Phone: Ovalocytes Slight [facility] Work Phone: Poikilocytes Slight [facility] Work Phone: Polychromasia Slight [facility] Work Phone: RBC (Bld) [#/Vol] ABNORMAL [facility] Work Phone: Seg Neutrophils 79 % 40 - 80 % [facility] Work Phone: Tear Drop Cells Slight [facility] Work Phone: TOTAL CELLS COUNTED 100 [facility] Work Phone: Test Performed by [facility] [place] [facility], [address] [place], [place] [address] [facility] Work Phone: POCT Glucoseon 03-24-2021 Glucose [Mass/Vol] 93 mg/dL 70 - 100 mg/dL [facility] Work Phone: Comment on above: Test performed by gl ucose meter. Results may be 10%-15% lower than serum/plasma values. (CLIA ID [id number]) Test Performed by [facility], [address] [place], [place], [place] [address] [facility] Work Phone: Basic Metabolic Panelon 11-2 Calcium [Mass/Vol] 8.8 mg/dL Normal 8.4-10.4 [facility] Comment on above: Performed By: #### H EMDF BMP3 #### [facility] [place] [facility] [address] [place] [address] Glucose [Mass/Vol] 143 mg/dL High 70-100 [facility] Comment on above: Performed By: #### H EMDF, BMP3 #### [facility] [place] [facility] [address] [place] [address] Anion gap [Moles/Vol] 8 mmol/L Normal 3-13 [facility] Comment on above: Performed By: #### H MAYKEL BMP3 #### [facility] [address] [place] [address] CO2 [Moles/Vol] 24 mmol/L Normal 22-30 [facility] Comment on above: Performed By: #### H MAYKEL BMP3 #### [facility] [address] [place] [address] Creatinine [Mass/Vol] 0.47 mg/dL Low 0.52-1.25 [facility] Comment on above: Performed By: #### H EMDF BMP3 #### [facility] [address] [place] [address] eGFR OTHER > 90.0 Normal >60 [facility] Comment on above: Result Comment: KDIG [...] By: #### H MAYKEL BMP3 #### [facility] [address] [place] [address] GFR/1.73 sq M.predicted among blacks MDRD (S/P/Bld) [Vol rate/Area] mL/min/{1.73_m2} Normal >60 [facility] Comment on above: Performed By: #### H MAYKEL BMP3 #### [facility] [address] [place] [address] Urea nitrogen [Mass/Vol] 32 mg/dL High 7-17 [facility] Comment on above: Performed By: #### H EMDF, BMP3 #### [facility] [address] [place] [address] Chloride [Moles/Vol] 110 mmol/L High 98-107 [facility] Comment on above: Performed By: #### H EMDF, BMP3 #### [facility] [address] [place] [address] Potassium [Moles/Vol] 3.9 mmol/L Normal 3.5-5.1 [facility] Comment on above: Performed By: #### H EMDF, BMP3 #### [facility] [address] [place] [address] Sodium [Moles/Vol] 142 mmol/L Normal 135-145 [facility] Comment on above: Performed By: #### H EMDF, BMP3 #### [facility] [address] [place] [address] Anion gap [Moles/Vol] 8 mmol/L 3 - 13 mmol/L [facility] Work Phone: Calcium [Mass/Vol] 8.8 mg/dL 8.4 - 10. 4 mg/dL [facility] Work Phone: Chloride [Moles/Vol] 110 mmol/L High 98 - 10 7 mmol/L [facility] Work Phone: CO2 [Moles/Vol] 24 mmol/L 22 - 30 mmol/L [facility] Work Phone: Creatinine [Mass/Vol] 0.47 mg/dL Low 0.52 - 1.25 mg/dL [facility] Work Phone: EGFR IF NonAfrican Hungarian >90.0 >60 mL/min [facility] Work Phone: Comment on above: [...] MDRD (S/P/Bld) [Vol rate/Area] mL/min/{1.73_m2} >60 mL/min [facility] Work Phone: Glucose [Mass/Vol] 143 mg/dL High 70 - 100 mg/dL [facility] Work Phone: Interpretation and review of laboratory results Abnormal [facility] Work Phone: Potassium [Moles/Vol] 3.9 mmol/L 3.5 - 5.1 mmol/L [facility] Work Phone: Sodium [Moles/Vol] 142 mmol/L 135 - 145 mmol/L [facility] Work Phone: Urea nitrogen (BldV) [Mass/Vol] 32 mg/dL High 7 - 17 mg/dL [facility] Work Phone: Test Performed by [facility] [facility], [address] [place] [id number] [place] [address] LAB [facility] Work Phone: CBC Auto Differentialon 11-2 Absolute Baso # 0.0 10*3/uL 0.0 - 0.2 10*3/uL [facility] Work Phone: Absolute Neut # 13.5 10*3/uL High 1.8 - 7.0 10*3/uL [facility] Work Phone: Basophils/100 WBC (Bld) 0.3 % 0.0 - 2.0 % [facility] Work Phone: Eosinophils (Bld) [#/Vol] 0.0 10*3/uL 0.0 - 0.5 10*3/uL [facility] Work Phone: Eosinophils/100 WBC (Bld) 0.0 % Low 1.0 - 6.0 % [facility] Work Phone: Granulocytes/100 WBC (Bld) 89.5 % High 40.0 - 80.0 % [facility] Work Phone: Hematocrit (Bld) [Volume fraction] 36.5 % Low 40.0 - 52.0 % [facility] Work Phone: Hemoglobin.gastrointest inal spec 1 Ql (Stl) 12.4 g/dL Low 13.0 - 18.0 g/dL [facility] Work Phone: Interpretation and review of laboratory results Abnormal [facility] Work Phone: Lymphocytes (Bld) [#/Vol] 0.7 10*3/uL Low 1.0 - 4.3 10*3/uL [facility] Work Phone: Lymphocytes/100 WBC (Bld) 4.8 % Low 20.0 - 40.0 % [facility] Work Phone: MCH (RBC) [Entitic mass] 31.3 pg 26.0 - 34.0 pg [facility] Work Phone: MCHC (RBC) [Mass/Vol] 34.1 % 32.0 - 36.0 % [facility] Work Phone: MCV (RBC) [Entitic vol] 92.0 fL 80.0 - 98.0 fL [facility] Work Phone: Monocytes (Bld) [#/Vol] 0.8 10*3/uL 0.0 - 0.8 10*3/uL [facility] Work Phone: Monocytes/100 WBC (Bld) 5.4 % 2.0 - 10.0 % [facility] Work Phone: Platelet distribution width (Bld) [Ratio] 13.2 % 11.5 - 14.5 % [facility] Work Phone: Platelet mean volume (Bld) [Entitic vol] 9.0 fL 7.4 - 10.4 fL [employer] Work Phone: Platelets (Bld) [#/Vol] 211 10*3/uL 140 - 440 10*3/uL [employer] Work Phone: RBC (Bld) [#/Vol] 3.96 10*6/uL Low 4.40 - 5.9 0 10*6/uL [employer] Work Phone: WBC (Bld) [#/Vol] 15.1 10*3/uL High 3.6 - 10.7 10*3/uL [facility] Work Phone: Test Performed by [facility], [address] [place], [place] [address] [facility] LAB [facility] Work Phone: Glucose,Bedsideon 03-23-2021 Glucose [Mass/Vol] 122 mg/dL High 70-100 [facility] Comment on above: Result Comment: Test performed by glucose meter. Results may be 10%-15% lower than serum/plasma values. (CLIA ID [id number]) Performed By: #### H EMDF, BMP3 #### [facility] [address] [place] [address] Glucose [Mass/Vol] 129 mg/dL High 70-100 [facility] Comment on above: Test performed by gl ucose meter. Results may be 10%-15% lower than serum/plasma values. (CLIA ID [id number]) Result Comment: Test performed by glucose meter. Results may be 10%-15% lower than serum/plasma values. (CLIA ID [id number]) Performed By: #### B GLU ####[facility] [id number] [place] [address] Glucose [Mass/Vol] 136 mg/dL High 70-100 [facility] Comment on above: Result Comment: Test performed by glucose meter. Results may be 10%-15% lower than serum/plasma values. (CLIA ID [id number]) Performed By: #### B GLU #### [facility] [address] [place] [address] Hemogram w/ Autodiffon 03-23 Abs Baso Cnt 0.0 10*3/uL Normal 0.0-0.2 [facility] Comment on above: Performed By: #### H EMDF, BMP3 #### [facility] [address] [place] [address] Abs Neutrophile Cnt 13.5 10*3/uL High 1.8-7.0 [facility] Comment on above: Performed By: #### H EMDF, BMP3 #### [facility] [address] [place] [address] Basophils/100 WBC (Bld) 0.3 % Normal 0.0-2.0 [facility] Comment on above: Performed By: #### H EMDF, BMP3 #### [facility] [address] [place] [address] Eosinophils (Bld) [#/Vol] 0.0 10*3/uL Normal 0.0-0.5 [facility] Comment on above: Performed By: #### H EMDF, BMP3 #### [facility] [address] [place] [address] Eosinophils/100 WBC (Bld) 0.0 % Low 1.0-6.0 [facility] Comment on above: Performed By: #### H EMDF, BMP3 #### [facility] [address] [place] [address] Erythrocyte distribution width (RBC) [Ratio] 13.2 % Normal 11.5-14.5 [facility] Comment on above: Performed By: #### H EMDF, BMP3 #### [facility] [address] [place] [address] Granulocytes/100 WBC (Bld) 89.5 % High 40.0-80.0 [facility] Comment on above: Performed By: #### H EMDF, BMP3 #### [facility] [address] [place] [address] Hematocrit (Bld) [Volume fraction] 36.5 % Low 40.0-52.0 [facility] Comment on above: Performed By: #### H EMDF, BMP3 #### [facility] [address] [place] [address] Hemoglobin (Bld) [Mass/Vol] 12.4 g/dL Low 13.0-18.0 [facility] Comment on above: Performed By: #### H EMDF, BMP3 #### [facility] [address] [place] [address] Lymphocytes (Bld) [#/Vol] 0.7 10*3/uL Low 1.0-4.3 [facility] Comment on above: Performed By: #### H EMDF, BMP3 #### [facility] [address] [place] [address] Lymphocytes/100 WBC (Bld) 4.8 % Low 20.0-40.0 [facility] Comment on above: Performed By: #### H EMDF, BMP3 #### [facility] [address] [place] [address] MCH (RBC) [Entitic mass] 31.3 pg Normal 26.0-34.0 [facility] Comment on above: Performed By: #### H EMDF, BMP3 #### [facility] [address] [place] [address] MCHC 34.1 % Normal 32.0-36.0 [facility] Comment on above: Performed By: #### H EMDF, BMP3 #### [facility] [address] [place] [address] MCV (RBC) [Entitic vol] 92.0 fL Normal 80.0-98.0 [facility] Comment on above: Performed By: #### H EMDF, BMP3 #### [facility] [address] [place] [address] Monocytes (Bld) [#/Vol] 0.8 10*3/uL Normal 0.0-0.8 [facility] Comment on above: Performed By: #### H EMDF, BMP3 #### [facility] [address] [place] [address] Monocytes/100 WBC (Bld) 5.4 % Normal 2.0-10.0 [facility] Comment on above: Performed By: #### H EMDF, BMP3 #### [facility] [address] [place] [address] Platelet mean volume (Bld) [Entitic vol] 9.0 fL Normal 7.4-10.4 [facility] Comment on above: Performed By: #### H EMDF, BMP3 #### [facility] [address] [place] [address] Platelets (Bld) [#/Vol] 211 10*3/uL Normal 140-440 [facility] Comment on above: Performed By: #### H EMDF, BMP3 #### [facility] [address] [place] [address] RBC (Bld) [#/Vol] 3.96 10*6/uL Low 4.40-5.90 [facility] Comment on above: Performed By: #### H EMDF, BMP3 #### [facility] [address] [place] [address] WBC (Bld) [#/Vol] 15.1 10*3/uL High 3.6-10.7 [facility] Comment on above: Performed By: #### H EMDF, BMP3 #### [facility] [address] [place] [address] No Panel Informationon 03-23 Interpretation and review of laboratory results Abnormal [facility] Work Phone: Test Performed by [facility], [facility] [address] LAB [facility] Work Phone: POCT Glucoseon 03-23-2021 Glucose [Mass/Vol] 166 mg/dL High 70 - 100 mg/dL [facility] Comment on above: Test performed by gl ucose meter. Results may be 10%-15% lower than serum/plasma values. (CLIA ID [id number]) Interpretation and review of laboratory results Abnormal [facility] Test Performed by [facility], [facility] [address] LAB [facility] Glucose [Mass/Vol] 122 mg/dL High 70 - 100 mg/dL [facility] Work Phone: Comment on above: Test performed by gl ucose meter. Results may be 10%-15% lower than serum/plasma values. (CLIA ID [id number]) Glucose [Mass/Vol] 136 mg/dL High 70 - 100 mg/dL [facility] Comment on above: Test performed by gl ucose meter. Results may be 10%-15% lower than serum/plasma values. (CLIA ID [id number]) Interpretation and review of laboratory results Abnormal [facility] Test Performed by [facility], [address] [place], [place] [address] [facility] CBC Auto Differentialon 03-02 Absolute Baso [...] 10.7 10*3/uL [facility] Test Performed by [facility], [address] [place], [place] [id number] [place] [address] LAB [facility] Glucose,Bedsideon 03-22-2021 Glucose [Mass/Vol] 134 mg/dL High [address] [facility] Comment on above: Result Comment: Test performed by glucose meter. Results may be 10%-15% lower than serum/plasma values. (CLIA ID [id number]) Performed By: #### H EMDF, BMP3 #### [facility] [address] [place] [address] Glucose [Mass/Vol] 190 mg/dL High [address] Comment on above: Result Comment: Test performed by glucose meter. Results may be 10%-15% lower than serum/plasma values. (CLIA ID [id number]) Performed By: #### B GLU #### [facility] [address] [place] [address] Glucose [Mass/Vol] 200 mg/dL High 70-[address] [place] [address] Comment on above: Result Comment: Test performed by glucose meter. Results may be 10%-15% lower than serum/plasma values. (CLIA ID [id number]) Performed By: #### B GLU #### [facility] [address] [place] [address] Glucose [Mass/Vol] 181 mg/dL High 70-[address] [place] [address] Comment on above: Result Comment: Test performed by glucose meter. Results may be 10%-15% lower than serum/plasma values. (CLIA ID [id number]) Performed By: #### B GLU #### [facility] [address] [place] [address] Glucose [Mass/Vol] 186 mg/dL High 70-100 [facility] Comment on above: Result Comment: Test performed by glucose meter. Results may be 10%-15% lower than serum/plasma values. (CLIA ID [id number]) Performed By: #### B GLU #### [facility] [address] [place] [address] Hemoglobin A1Con 03-22-2021 Glucose [Mass/Vol] 108 mg/dL Normal [facility] Comment on above: Performed By: #### B GLU #### [facility] [address] [place] [address] HbA1c (Bld) [Mass fraction] 5.4 % Normal [facility] Comment on above: Result Comment: Norm al less than 5.7% Prediabetes 5.7% to 6.4% Diabetes 6.5% or higher --HgbA1C levels may not be accurate in patients who have renal disease, received recent blood transfusions, are anemic, or who have dyshemoglobinemia. Performed By: #### B GLU #### [facility] [address] [place] [address] HbA1c (Bld) [Mass fraction] 5.4 % [facility] Comment on above: Normal less than 5.7 % Prediabetes 5.7% to 6.4% Diabetes 6.5% or higher --HgbA1C levels may not be accurate in patients who have renal disease, received recent blood transfusions, are anemic, or who have dyshemoglobinemia. Magnesium [Mass/Vol] 108 mg/dL [facility] Test Performed by [facility], [address] [place], [place] [address] [facility] Hemogram w/ Autodiffon 03-22 Abs Baso Cnt 0.0 10*3/uL Normal 0.0-0.2 [facility] Comment on above: Performed By: #### B GLU #### [facility] [address] [place] [address] Abs Neutrophile Cnt 12.3 10*3/uL High 1.8-7.0 [facility] Comment on above: Performed By: #### B GLU #### [facility] [address] [place] [address] Basophils/100 WBC (Bld) 0.2 % Normal 0.0-2.0 [facility] Comment on above: Performed By: #### B GLU #### [facility] [address] [place] [address] Eosinophils (Bld) [#/Vol] 0.0 10*3/uL Normal 0.0-0.5 [facility] Comment on above: Performed By: #### B GLU #### [facility] [address] [place] [address] Eosinophils/100 WBC (Bld) 0.0 % Low 1.0-6.0 [facility] Comment on above: Performed By: #### B GLU #### [facility] [address] [place] [address] Erythrocyte distribution width (RBC) [Ratio] 12.8 % Normal 11.5-14.5 [facility] Comment on above: Performed By: #### B GLU #### [facility] [address] [place] [address] Granulocytes/100 WBC (Bld) 92.7 % High 40.0-80.0 [facility] Comment on above: Performed By: #### B GLU #### [facility] [address] [place] [address] Hematocrit (Bld) [Volume fraction] 35.9 % Low 40.0-52.0 [facility] Comment on above: Performed By: #### B GLU #### [facility] [address] [place] [address] Hemoglobin (Bld) [Mass/Vol] 12.4 g/dL Low 13.0-18.0 [facility] Comment on above: Performed By: #### B GLU #### [facility] [address] [place] [address] Lymphocytes (Bld) [#/Vol] 0.5 10*3/uL Low 1.0-4.3 [facility] Comment on above: Performed By: #### B GLU #### [facility] [address] [place] [address] Lymphocytes/100 WBC (Bld) 3.6 % Low 20.0-40.0 [facility] Comment on above: Performed By: #### B GLU #### [facility] [address] [place] [address] MCH (RBC) [Entitic mass] 31.6 pg Normal 26.0-34.0 [facility] Comment on above: Performed By: #### B GLU #### [facility] [address] [place] [address] MCHC 34.6 % Normal 32.0-36.0 [facility] Comment on above: Performed By: #### B GLU #### [facility] [address] [place] [address] MCV (RBC) [Entitic vol] 91.2 fL Normal 80.0-98.0 [facility] Comment on above: Performed By: #### B GLU #### [facility] [address] [place] [address] Monocytes (Bld) [#/Vol] 0.5 10*3/uL Normal 0.0-0.8 [facility] Comment on above: Performed By: #### B GLU #### [facility] [address] [place] [address] Monocytes/100 WBC (Bld) 3.5 % Normal 2.0-10.0 [facility] Comment on above: Performed By: #### B GLU #### [facility] [address] [place] [address] Platelet mean volume (Bld) [Entitic vol] 9.5 fL Normal 7.4-10.4 [facility] Comment on above: Performed By: #### B GLU #### [facility] [address] [place] [address] Platelets (Bld) [#/Vol] 158 10*3/uL Normal 140-440 [facility] Comment on above: Performed By: #### B GLU #### [facility] [address] [place] [address] RBC (Bld) [#/Vol] 3.93 10*6/uL Low 4.40-5.90 [facility] Comment on above: Performed By: #### B GLU #### [facility] [address] [place] [address] WBC (Bld) [#/Vol] 13.3 10*3/uL High 3.6-10.7 [facility] Comment on above: Performed By: #### B GLU #### [facility] [address] [place] [address] MRSA by PCRon 03-22-2021 Staph Aureus Sc No S. aureus detected. Negative nasal MRSA PCR has a high negative predictive value for MRSA pneumonia. Consider stopping vancomycin if no other clinical indication. Contact Antimicrobial Stewardship for further recommendations. The analytical performance characteristics of this assay have been determined by [employer] in accordance with CLIA regulations. The modifications have not been cleared or approved by the U. S. Food and Drug Administration; however, the FDA has determined that such clearance or approval is not necessary. [facility] Test Performed by [facility], [address] [place] [id number] [place] [address] LAB [facility] POCT GlucoseOrdered By: Same lizy Morgan on 03-22-2021 Glucose [Mass/Vol] 134 mg/dL High 70 - 100 mg/dL [facility] Work Phone: Comment on above: Test performed by gl ucose meter. Results may be 10%-15% lower than serum/plasma values. (CLIA ID [id number]) Interpretation and review of laboratory results Abnormal [facility] Work Phone: [facility] Work Phone: POCT Glucoseon 03-22-2021 Test Performed by [facility], [address] [place], [place] [address] [facility] Glucose [Mass/Vol] 190 mg/dL High 70 - 100 mg/dL [facility] Comment on above: Test performed by gl ucose meter. Results may be 10%-15% lower than serum/plasma values. (CLIA ID [id number]) Interpretation and review of laboratory results Abnormal [facility] Test Performed by [facility], [address] LAB [facility] Glucose [Mass/Vol] 200 mg/dL High 70 - 100 mg/dL [facility] Comment on above: Test performed by gl ucose meter. Results may be 10%-15% lower than serum/plasma values. (CLIA ID [id number]) Interpretation and review of laboratory results Abnormal [facility] Test Performed by [facility], [address] LAB [facility] Glucose [Mass/Vol] 181 mg/dL High 70 - 100 mg/dL [facility] Comment on above: Test performed by gl ucose meter. Results may be 10%-15% lower than serum/plasma values. (CLIA ID [id number]) Interpretation and review of laboratory results Abnormal [facility] Test Performed by [facility], [address] LAB [facility] Glucose [Mass/Vol] 186 mg/dL High 70 - 100 mg/dL [facility] Comment on above: Test performed by gl ucose meter. Results may be 10%-15% lower than serum/plasma values. (CLIA ID [id number]) Interpretation and review of laboratory results Abnormal [facility] Test Performed by [facility], [address] [facility] Procalcitoninon 03-22-2021 Procalcitonin 0.09 ng/mL Normal 0.00-0.09 [facility] Comment on above: Performed By: #### H [facility], [facility] #### [facility] [address] [place] [address] Interpretation See Below [facility] Comment on above: PCT <0.50 = Low risk of severe sepsis and/or septic shock. PCT >2.00 = High risk of severe sepsis and/or septic shock. Procalcitonin 0.09 ng/mL 0.00 - 0.09 ng/mL [facility] Test Performed by [facility], [address] [place] [address] [facility] Staph Aureus Complete Nasalo n 03-22-2021 Staph Aureus Complete Nasal Staph Screen --> Status: F No S. aureus detected. Negative nasal MRSA PCR has a high negative predictive value for MRSA pneumonia. Consider stopping vancomycin if no other clinical indication. Contact Antimicrobial Stewardship for further recommendations. The analytical performance characteristics of this assay have been determined by [employer] in accordance with CLIA regulations. The modifications [...] of this assay have been determined by [employer] in accordance with CLIA regulations. The modifications have not been cleared or approved by the U. S. Food and Drug Administration; however, the FDA has determined that such clearance or approval is not necessary. Normal [facility] Comment on above: Performed By: #### S APCR ####[facility] [address] [place] [address] Vancomycin Troughon 03-22-20 21 Vancomycin Trough 8.1 ug/mL Low 15.0-20.0 [facility] Comment on above: Result Comment: . Performed By: #### B GLU #### [facility] [address] [place] [address] Vancomycin, Troughon 021 Interpretation and review of laboratory results Abnormal [facility] Vancomycin Tr 8.1 ug/mL Low 15.0 - 20.0 ug/mL [facility] Comment on above: . Test Performed by [facility], [address] [place], [place] [address] [facility] Basic Metabolic Panelon 03-02 Anion gap [Moles/Vol] 7 mmol/L Normal 3-13 [facility] Comment on above: Performed By: #### H MAYKEL BMP3 #### [facility] [address] [place] [address] Calcium [Mass/Vol] 8.1 mg/dL Low 8.4-10.4 [facility] Comment on above: Performed By: #### H MAYKEL BMP3 #### [facility] [address] [place] [address] CO2 [Moles/Vol] 26 mmol/L Normal 22-30 [facility] Comment on above: Performed By: #### H MAYKEL BMP3 #### [facility] [address] [place] [address] Glucose [Mass/Vol] 156 mg/dL High 70-100 [facility] Comment on above: Performed By: #### H ALCIRAF BMP3 #### [facility] [address] [place] [address] Urea nitrogen [Mass/Vol] 19 mg/dL High 7-17 [facility] Comment on above: Performed By: #### H ALCIRAF BMP3 #### [facility] [address] [place] [address] Creatinine [Mass/Vol] 0.53 mg/dL Normal 0.52-1.25 [facility] Comment on above: Performed By: #### H ALCIRAF BMP3 #### [facility] [address] [place] [address] eGFR OTHER > 90.0 Normal >60 [facility] Comment on above: Result Comment: KDIG [...] By: #### H MAYKEL BMP3 #### [facility] [address] [place] [address] GFR/1.73 sq M.predicted among blacks MDRD (S/P/Bld) [Vol rate/Area] mL/min/{1.73_m2} Normal >60 [facility] Comment on above: Performed By: #### H EMDF, BMP3 #### [facility] [address] [place] [address] Chloride [Moles/Vol] 103 mmol/L Normal 98-107 [facility] Comment on above: Performed By: #### H EMDF, BMP3 #### [facility] [address] [place] [address] Potassium [Moles/Vol] 3.4 mmol/L Low 3.5-5.1 [facility] Comment on above: Performed By: #### H EMDF, BMP3 #### [facility] [address] [place] [address] Sodium [Moles/Vol] 136 mmol/L Normal 135-145 [facility] Comment on above: Performed By: #### H EMDF, BMP3 #### [facility] [address] [place] [address] Basic Metabolic Panel w/ Ref marciano to MGon 03-21-2021 Anion gap [Moles/Vol] 7 mmol/L 3 - 13 mmol/L [facility] Work Phone: Calcium [Mass/Vol] 8.1 mg/dL Low 8.4 - 10. 4 mg/dL [facility] Work Phone: Chloride [Moles/Vol] 103 mmol/L 98 - 10 7 mmol/L [facility] Work Phone: CO2 [Moles/Vol] 26 mmol/L 22 - 30 mmol/L [facility] Work Phone: Creatinine [Mass/Vol] 0.53 mg/dL 0.52 - 1.25 mg/dL [facility] Work Phone: EGFR IF NonAfrican Hungarian >90.0 >60 mL/min [facility] Work Phone: Comment on above: [...] MDRD (S/P/Bld) [Vol rate/Area] mL/min/{1.73_m2} >60 mL/min [facility] Work Phone: Glucose [Mass/Vol] 156 mg/dL High 70 - 100 mg/dL [facility] Work Phone: Interpretation and review of laboratory results Abnormal [facility] Work Phone: Potassium [Moles/Vol] 3.4 mmol/L Low 3.5 - 5.1 mmol/L [facility] Work Phone: Sodium [Moles/Vol] 136 mmol/L 135 - 145 mmol/L [facility] Work Phone: Urea nitrogen (BldV) [Mass/Vol] 19 mg/dL High 7 - 17 mg/dL [facility] Work Phone: Test Performed by [facility], [address] [place] [id number] [place] [address] LAB [facility] Work Phone: CBCon 03-21-2021 Hematocrit (Bld) [Volume fraction] 35.4 % Low 40.0 - 52.0 % [facility] Work Phone: Hemoglobin.gastrointest inal spec 1 Ql (Stl) 11.9 g/dL Low 13.0 - 18.0 g/dL [facility] Work Phone: Interpretation and review of laboratory results Abnormal [facility] Work Phone: MCH (RBC) [Entitic mass] 30.5 pg 26.0 - 34.0 pg [facility] Work Phone: MCHC (RBC) [Mass/Vol] 33.7 % 32.0 - 36.0 % [facility] Work Phone: MCV (RBC) [Entitic vol] 90.6 fL 80.0 - 98.0 fL [employer] Work Phone: Platelet distribution width (Bld) [Ratio] 13.1 % 11.5 - 14.5 % [facility] Work Phone: Platelet mean volume (Bld) [Entitic vol] 9.1 fL 7.4 - 10.4 fL [employer] Work Phone: Platelets (Bld) [#/Vol] 136 10*3/uL Low 140 - 440 10*3/uL [employer] Work Phone: RBC (Bld) [#/Vol] 3.91 10*6/uL Low 4.40 - 5.9 0 10*6/uL [facility] Work Phone: WBC (Bld) [#/Vol] 7.1 10*3/uL 3.6 - 10.7 10*3/uL [employer] Work Phone: Test Performed by [facility] [place], [address] [place], [place] [id number] [place] [address] LAB [facility] Work Phone: Glucose,Bedsideon 03-21-2021 Glucose [Mass/Vol] 131 mg/dL High 70-100 [facility] Comment on above: Result Comment: Test performed by glucose meter. Results may be 10%-15% lower than serum/plasma values. (CLIA ID [id number]) Performed By: #### B GLU #### [facility] [address] [place] [address] Glucose [Mass/Vol] 230 mg/dL High 70-100 [facility] Comment on above: Result Comment: Test performed by glucose meter. Results may be 10%-15% lower than serum/plasma values. (CLIA ID [id number]) Performed By: #### B GLU #### [facility] [address] [place] [address] Hemogramon 03-21-2021 Erythrocyte distribution width (RBC) [Ratio] 13.1 % Normal 11.5-14.5 [facility] Comment on above: Performed By: #### H MAYKEL BMP3 #### [facility] [address] [place] [address] Hematocrit (Bld) [Volume fraction] 35.4 % Low 40.0-52.0 [facility] Comment on above: Performed By: #### H MAYKEL BMP3 #### [facility] [address] [place] [address] Hemoglobin (Bld) [Mass/Vol] 11.9 g/dL Low 13.0-18.0 [facility] Comment on above: Performed By: #### H MAYKEL BMP3 #### [facility] [address] [place] [address] MCH (RBC) [Entitic mass] 30.5 pg Normal 26.0-34.0 [facility] Comment on above: Performed By: #### H MAYKEL BMP3 #### [facility] [address] [place] [address] MCHC 33.7 % Normal 32.0-36.0 [facility] Comment on above: Performed By: #### H MAYKEL BMP3 #### [facility] [address] [place] [address] MCV (RBC) [Entitic vol] 90.6 fL Normal 80.0-98.0 [facility] Comment on above: Performed By: #### H MAYKEL BMP3 #### [facility] [address] [place] [address] Platelet mean volume (Bld) [Entitic vol] 9.1 fL Normal 7.4-10.4 [facility] Comment on above: Performed By: #### H MAYKEL BMP3 #### [facility] [address] [place] [address] Platelets (Bld) [#/Vol] 136 10*3/uL Low 140-440 [facility] Comment on above: Performed By: #### H MAYKEL BMP3 #### [facility] [address] [place] [address] RBC (Bld) [#/Vol] 3.91 10*6/uL Low 4.40-5.90 [facility] Comment on above: Performed By: #### H EMDF, BMP3 #### [facility] [address] [place] [address] WBC (Bld) [#/Vol] 7.1 10*3/uL Normal 3.6-10.7 [facility] Comment on above: Performed By: #### H EMDF, BMP3 #### [facility] [address] [place] [address] Magnesiumon 03-21-2021 Magnesium [Mass/Vol] 2.2 mg/dL Normal 1.6-2.3 [facility] Comment on above: Performed By: #### H EMDF, BMP3 #### [facility] [address] [place] [address] Magnesium [Mass/Vol] 2.2 mg/dL 1.6 - 2 .3 mg/dL [facility] Work Phone: Test Performed by [facility], [facility] [address] LAB [facility] Work Phone: POCT Glucoseon 03-21-2021 Glucose [Mass/Vol] 131 mg/dL High 70 - 100 mg/dL [facility] Comment on above: Test performed by gl ucose meter. Results may be 10%-15% lower than serum/plasma values. (CLIA ID [id number]) Interpretation and review of laboratory results Abnormal [facility] Test Performed by [facility], [address] LAB [facility] Glucose [Mass/Vol] 230 mg/dL High 70 - 100 mg/dL [facility] Comment on above: Test performed by gl ucose meter. Results may be 10%-15% lower than serum/plasma values. (CLIA ID [id number]) Interpretation and review of laboratory results Abnormal [facility] Test Performed by [facility], [address] LAB [facility] Procalcitoninon 03-21-2021 Interpretation See Below Normal [facility] Comment on above: Result Comment: PCT <0.50 = Low risk of severe sepsis and/or septic shock. PCT >2.00 = High risk of severe sepsis and/or septic shock. Performed By: #### H MAYKEL BMP3 #### [facility] [address] [place] [address] Basic Metabolic Panelon 11 Calcium [Mass/Vol] 8.4 mg/dL Normal 8.4-10.4 [facility] Comment on above: Performed By: #### H MAYKEL BMP3 #### [facility] [address] [place] [address] Anion gap [Moles/Vol] 6 mmol/L Normal 3-13 [facility] Comment on above: Performed By: #### H MAYKEL BMP3 #### [facility] [address] [place] [address] CO2 [Moles/Vol] 27 mmol/L Normal 22-30 [facility] Comment on above: Performed By: #### H MAYKEL BMP3 #### [facility] [address] [place] [address] Glucose [Mass/Vol] 106 mg/dL High 70-100 [facility] Comment on above: Performed By: #### H MAYKEL, BMP3 #### [facility] [address] [place] [address] Urea nitrogen [Mass/Vol] 14 mg/dL Normal 7-17 [facility] Comment on above: Performed By: #### H MAYKEL BMP3 #### [facility] [address] [place] [address] Creatinine [Mass/Vol] 0.51 mg/dL Low 0.52-1.25 [facility] Comment on above: Performed By: #### H MAYKEL BMP3 #### [facility] [address] [place] [address] eGFR OTHER > 90.0 Normal >60 [facility] Comment on above: Result Comment: KDIG [...] By: #### H MAYKEL BMP3 #### [facility] [address] [place] [address] GFR/1.73 sq M.predicted among blacks MDRD (S/P/Bld) [Vol rate/Area] mL/min/{1.73_m2} Normal >60 [facility] Comment on above: Performed By: #### Kerri BRAR BMP3 #### [facility] [address] [place] [address] Chloride [Moles/Vol] 104 mmol/L Normal 98-107 [facility] Comment on above: Performed By: #### H MAYKEL BMP3 #### [facility] [address] [place] [address] Potassium [Moles/Vol] 3.9 mmol/L Normal 3.5-5.1 [facility] Comment on above: Performed By: #### H MAYKEL BMP3 #### [facility] [address] [place] [address] Sodium [Moles/Vol] 137 mmol/L Normal 135-145 [facility] Comment on above: Performed By: #### Kerri BRAR BMP3 #### [facility] [address] [place] [address] Anion gap [Moles/Vol] 6 mmol/L 3 - 13 mmol/L [facility] Work Phone: Calcium [Mass/Vol] 8.4 mg/dL 8.4 - 10. 4 mg/dL [facility] Work Phone: Chloride [Moles/Vol] 104 mmol/L 98 - 10 7 mmol/L [facility] Work Phone: CO2 [Moles/Vol] 27 mmol/L 22 - 30 mmol/L [facility] Work Phone: Creatinine [Mass/Vol] 0.51 mg/dL Low 0.52 - 1.25 mg/dL [facility] Work Phone: EGFR IF NonAfrican Hungarian >90.0 >60 mL/min [facility] Work Phone: Comment [...] mg/dL [facility] Work Phone: Test Performed by [facility], [address] [place], [place] [id number] [place] [address] LAB [facility] Work Phone: C-Reactive Proteinon 021 CRP [Mass/Vol] 228.1 mg/L High 0.0-9.9 [facility] Comment on above: Result Comment: . Performed By: #### H EMD, BMP3 #### [facility] [address] [place] [address] CRP [Mass/Vol] 228.1 mg/L High 0.0 - 9.9 mg/L [facility] Work Phone: Comment on above: . Interpretation and review of laboratory results Abnormal [facility] Work Phone: Test Performed by [facility], [address] [place], [place] [id number] [place] [address] LAB [facility] Work Phone: COVID and Resp PCR Panelon 1 05-20-2020 SARS-CoV-2 (COVID-19) RNA SHIRLEY+probe Ql (Unsp spec) COVID and Resp PCR Panel --> Status: F POSITIVE: Respiratory Syncytial Virus DETECTED. _ Expected Result: Not Detected [employer] Upper Respiratory Pathogens PCR Panel can detect the following targets: SARS-CoV-2, Adenovirus, Coronavirus 229E, Coronavirus HKU1, Coronavirus NL63, Coronavirus OC43, Human Metapneumovirus, Human Rhinovirus/Enteroviru s, Influenza A, Influenza B, Parainfluenza Virus 1, Parainfluenza Virus 2, Parainfluenza Virus 3, Parainfluenza Virus 4, Respiratory Syncytial Virus, Bordetella pertussis, Bordetella parapertussis, Chlamydia pneumoniae, Mycoplasma pneumoniae. Method: Real-time PCR. _ Expected Result: Not Detected [employer] Upper Respiratory Pathogens PCR Panel can detect the following targets: SARS-CoV-2, Adenovirus, Coronavirus 229E, Coronavirus HKU1, Coronavirus NL63, Coronavirus OC43, Human Metapneumovirus, Human Rhinovirus/Enteroviru s, Influenza A, Influenza B, Parainfluenza Virus 1, Parainfluenza Virus 2, Parainfluenza Virus 3, Parainfluenza Virus 4, Respiratory Syncytial Virus, Bordetella pertussis, Bordetella parapertussis, Chlamydia pneumoniae, Mycoplasma pneumoniae. Method: Real-time PCR. Abnormal [facility] Comment on above: Performed By: #### B FRP2 #### 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1955 Requested By: BRADY DESAI Order Number: [id number] Reading MD: Fei Menjivar Measurements Intervals [place] Rate: 102 P: 71 MS: 172 QRS: -30 QRSD: 156 T: 85 QT: 412 QTc: 537 Interpretive Statements SINUS TACHYCARDIA LEFT BUNDLE BRANCH BLOCK Electronically Signed On 03-20-2021 22:47:41 EST by Fei BARNETT CARDIOLOGY Fei Menjivar MD - 03/20/2021 [facility] Test Date: 2021-03-19 Pat Name: KATHYA HOOPER Department: 1 Room: 465 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1955 Requested By: BRADY DESAI Order Number: [id number] Reading MD: Fei Menjivar Measurements Intervals [place] Rate: 102 P: 71 MS: 172 QRS: -30 QRSD: 156 T: 85 QT: 412 QTc: 537 Interpretive Statements SINUS TACHYCARDIA LEFT BUNDLE BRANCH BLOCK Electronically Signed On 03-20-2021 22:47:41 EST by Fei BARNETT Work Phone: EKG 12 Lead - Chest PainOrde red By: Fei Menjivar on 03-20-2021 [facility] Work Phone: Lactic Acidon 03-20-2021 Lactate [Moles/Vol] 0.7 mmol/L Normal 0.7-2.0 [facility] [employer] Comment on above: Performed By: #### H EMDF, BMP3 #### [facility] [place] [facility] [address] [place] [address] Lactic Acid, Plasmaon 2020 Lactate [Moles/Vol] 0.7 mmol/L 0.7 - 2. 0 mmol/L [facility] Work Phone: Test Performed by [facility], [address] [place] [address] [facility] LAB [facility] Work Phone: PROCALCITONINon 03-20-2021 Interpretation See Below [facility] Work Phone: Comment on above: PCT <0.50 = Low risk of severe sepsis and/or septic shock. PCT >2.00 = High risk of severe sepsis and/or septic shock. Interpretation and review of laboratory results Abnormal [facility] Work Phone: Test Performed by [facility], [address] [place] [id number] [place] [address] LAB [facility] Work Phone: Procalcitoninon 03-20-2021 Procalcitonin 0.14 ng/mL High 0.00-0.09 [facility] Work Phone: Comment on above: Performed By: #### H EMDF, BMP3 #### [facility] [address] [place] [address] Interpretation See Below Normal [facility] Comment on above: Result Comment: PCT <0.50 = Low risk of severe sepsis and/or septic shock. PCT >2.00 = High risk of severe sepsis and/or septic shock. Performed By: #### H EMDF, BMP3 #### [facility] [address] [place] [address] Troponinon 03-20-2021 Interpretation and review of laboratory results Abnormal [facility] Work Phone: Troponin I.cardiac [Mass/Vol] 0.037 ng/mL High 0.000 - 0.034 ng/mL [facility] Work Phone: Comment on above: . Test Performed by [facility], [address] [place] [address] [facility] LAB [facility] Work Phone: Troponin Ion 03-20-2021 Troponin I.cardiac [Mass/Vol] 0.037 ng/mL High 0.000-0.034 [facility] Comment on above: Result Comment: . Performed By: #### H EMDF, BMP3 #### [facility] [address] [place] [address] Arterial Blood Gas Respirato yasmine 03-19-2021 Base Excess 1.2 mmol/L Normal -3.0-3.0 [facility] Comment on above: Performed By: #### B GLU #### [facility] [address] [place] [address] CO2 [Moles/Vol] 25.6 mmol/L Normal 23.0-27.0 [facility] Comment on above: Performed By: #### B GLU #### [facility] [address] [place] [address] FIO2 5 Normal [facility] Comment on above: Result Comment: Perf ormed by CLIA ID: [id number] [place], [place] Performed By: #### B GLU #### [facility] [address] [place] [address] HCO3 (Bld) [Moles/Vol] 24.6 mmol/L Normal 21.0-25.0 [facility] Comment on above: Performed By: #### B GLU #### [facility] [address] [place] [address] Oxygen (Bld) [Partial pressure] 56.7 mm[Hg] Low 80.0-100.0 [facility] Comment on above: Performed By: #### B GLU #### [facility] [address] [place] [address] Oxygen saturation in Blood 91.0 % Low 95.0-100.0 [facility] Comment on above: Performed By: #### B GLU #### [facility] [address] [place] [address] pCO2 33.9 mm[Hg] Low 35.0-45.0 [facility] Comment on above: Performed By: #### B GLU #### [facility] [address] [place] [address] pH 7.468 High 7.350-7.450 [facility] Comment on above: Performed By: #### B GLU #### [facility] [address] [place] [address] Basic Metabolic Panelon 11-1 Anion gap [Moles/Vol] 9 mmol/L Normal 3-13 [facility] Comment on above: Performed By: #### B MP3, TROPN ####[facility] [place] [address] Calcium [Mass/Vol] 8.5 mg/dL Normal 8.4-10.4 [facility] Comment on above: Performed By: #### B MP3, TROPN ####[facility] [place] [address] CO2 [Moles/Vol] 26 mmol/L Normal 22-30 [facility] Comment on above: Performed By: #### B MP3, TROPN ####[facility] [place] [address] Creatinine [Mass/Vol] 0.48 mg/dL Low 0.52-1.25 [facility] Comment on above: Performed By: #### B MP3, TROPN ####[facility] [place] [address] eGFR OTHER > 90.0 Normal >60 [facility] Comment on above: Result Comment: KDIG [...] secretion. Performed By: #### B MP3, TROPN ####[facility] [place] [address] GFR/1.73 sq M.predicted among blacks MDRD (S/P/Bld) [Vol rate/Area] mL/min/{1.73_m2} Normal >60 [facility] Comment on above: Performed By: #### B MP3, TROPN ####[facility] [place] [address] Glucose [Mass/Vol] 132 mg/dL High 70-100 [facility] Comment on above: Performed By: #### B MP3, TROPN ####[place] [address] [place] [address] Urea nitrogen [Mass/Vol] 16 mg/dL Normal 7-17 [facility] Comment on above: Performed By: #### B MP3, TROPN ####[place] [address] [place] [address] Chloride [Moles/Vol] 102 mmol/L Normal 98-107 [facility] Comment on above: Performed By: #### B MP3, TROPN ####[facility] [place] [address] Potassium [Moles/Vol] 4.1 mmol/L Normal 3.5-5.1 [facility] Comment on above: Performed By: #### B MP3, TROPN ####[place] [address] [place] [address] Sodium [Moles/Vol] 137 mmol/L Normal 135-145 [facility] Comment on above: Performed By: #### B MP3, TROPN ####[facility] [place] [address] Anion gap [Moles/Vol] 9 mmol/L 3 - 13 mmol/L [facility] Calcium [Mass/Vol] 8.5 mg/dL 8.4 - 10. 4 mg/dL [facility] Chloride [Moles/Vol] 102 mmol/L 98 - 10 7 mmol/L [facility] CO2 [Moles/Vol] 26 mmol/L 22 - 30 mmol/L [facility] Creatinine [Mass/Vol] 0.48 mg/dL Low 0.52 - 1.25 mg/dL [facility] EGFR IF NonAfrican Hungarian >90.0 >60 mL/min [facility] Comment on above: [...] - 17 mg/dL [facility] Test Performed by [facility] [place], [address] [place], [place] [id number] [place] [address] LAB [facility] CBC Auto Differentialon 03-01 Absolute Baso # 0.1 10*3/uL 0.0 - 0.2 10*3/uL [facility] Absolute Neut # 7.2 10*3/uL High 1.8 - 7.0 10*3/uL [facility] Hemoglobin.gastrointest inal spec 1 Ql (Stl) 13.1 g/dL 13.0 - 18.0 g/dL [facility] MCHC (RBC) [Mass/Vol] 33.9 % 32.0 - 36.0 % [facility] Platelet distribution width (Bld) [Ratio] 13.0 % 11.5 - 14.5 % [facility] COVID-19, Flu A/B, and RSV C omboon 03-19-2021 Influenza A by PCR Not detected [facility] Influenza B by PCR Not detected [facility] Interpretation and review of laboratory results Abnormal [facility] RSV PCR DETECTED Expected Result: Not Detected _ Method: Real-time, RT-PCR This assay was developed by [employer] and distributed under an Emergency Use Authorization (EUA) granted by the FDA for the qualitative detection of nucleic acids from SARS-CoV-2, Influenza A, Influenza B, and Respiratory Syncytial Virus. Provider and patient fact sheets can be found at https://www.fda.gov/m edia/386501/download and https://www.fda.gov/m edia/785148/download. Abnormal [facility] SARS-CoV-2 (COVID-19) RNA SHIRLEY+probe Ql (Unsp spec) Not detected [facility] Test Performed by [facility], [address] [place] [address] LAB [facility] CR Chest Portableon 03-19-20 21 CR Chest Portable Patient Name: KATHYA HOOPER Diagnostic Radiology ACCESSION EXAM DATE/TIME PROCEDURE ORDERING PROVIDER [id number] 03/19/2021 17:10 EST CR Chest Portable [id number] -BRADY DESAI CPT code 69960 Reason For Exam (CR Chest Portable) hypoxia [...] J Transcribed Date and Time: 03/19/2021 5:22 [facility] ED Provider Noteon ED Provider Note Emergency Department Encounter [facility] ED Patient: Kathya Hooper : 1955 Date of Evaluation: 03/19/2021 ED Provider: Brady Desai, DO Chief Complaint Chief Complaint Patient presents with ? Shortness of Breath [place] I wore appropriate PPE for the entirety of this encounter. Does this patient come from an ECF, SNF, Rehab, Snf or other Congregate setting: yes (If yes [...] otherwise acutely negative except as in the [place]. Past History Past Medical History: Diagnosis Date [...] and Family: Not on file ? Attends [employer]: Not on file ? Active Member [...] T (more content not included)... Normal [facility] Hemogram w/ Autodiffon 03-19 Abs Baso Cnt 0.1 10*3/uL Normal 0.0-0.2 [facility] Comment on above: Performed By: #### B GLU #### [facility] [address] [place] [address] Abs Neutrophile Cnt 7.2 10*3/uL High 1.8-7.0 [facility] Comment on above: Performed By: #### B GLU #### [facility] [address] [place] [address] Basophils/100 WBC (Bld) 0.6 % Normal 0.0-2.0 [facility] Comment on above: Performed By: #### B GLU #### [facility] [address] [place] [address] Eosinophils (Bld) [#/Vol] 0.0 10*3/uL Normal 0.0-0.5 [facility] Comment on above: Performed By: #### B GLU #### [facility] [address] [place] [address] Eosinophils/100 WBC (Bld) 0.2 % Low 1.0-6.0 [facility] Comment on above: Performed By: #### B GLU #### [facility] [address] [place] [address] Erythrocyte distribution width (RBC) [Ratio] 13.0 % Normal 11.5-14.5 [facility] Comment on above: Performed By: #### B GLU #### [facility] [address] [place] [address] Granulocytes/100 WBC (Bld) 79.0 % Normal 40.0-80.0 [facility] Comment on above: Performed By: #### B GLU #### [facility] [address] [place] [address] Hematocrit (Bld) [Volume fraction] 38.5 % Low 40.0-52.0 [facility] Comment on above: Performed By: #### B GLU #### [facility] [address] [place] [address] Hemoglobin (Bld) [Mass/Vol] 13.1 g/dL Normal 13.0-18.0 [facility] Comment on above: Performed By: #### B GLU #### [facility] [address] [place] [address] Lymphocytes (Bld) [#/Vol] 1.0 10*3/uL Normal 1.0-4.3 [facility] Comment on above: Performed By: #### B GLU #### [place] [address] [place] [address] Lymphocytes/100 WBC (Bld) 10.8 % Low 20.0-40.0 [facility] Comment on above: Performed By: #### B GLU #### [place] [address] [place] [address] MCH (RBC) [Entitic mass] 30.9 pg Normal 26.0-34.0 [facility] Comment on above: Performed By: #### B GLU #### [place] [address] [place] [address] MCHC 33.9 % Normal 32.0-36.0 [facility] Comment on above: Performed By: #### B GLU #### [facility] [address] [place] [address] MCV (RBC) [Entitic vol] 91.1 fL Normal 80.0-98.0 [facility] Comment on above: Performed By: #### B GLU #### [place] [address] [place] [address] Monocytes (Bld) [#/Vol] 0.9 10*3/uL High 0.0-0.8 [facility] Comment on above: Performed By: #### B GLU #### [facility] [address] [place] [address] Monocytes/100 WBC (Bld) 9.4 % Normal 2.0-10.0 [facility] Comment on above: Performed By: #### B GLU #### [facility] [address] [place] [address] Platelet mean volume (Bld) [Entitic vol] 9.9 fL Normal 7.4-10.4 [facility] Comment on above: Performed By: #### B GLU #### [facility] [address] [place] [address] Platelets (Bld) [#/Vol] 163 10*3/uL Normal 140-440 [facility] Comment on above: Performed By: #### B GLU #### [facility] [address] [place] [address] RBC (Bld) [#/Vol] 4.23 10*6/uL Low 4.40-5.90 [facility] Comment on above: Performed By: #### B GLU #### [facility] [address] [place] [address] WBC (Bld) [#/Vol] 9.1 10*3/uL Normal 3.6-10.7 [facility] Comment on above: Performed By: #### B GLU #### [facility] [address] [place] [address] Lactic Acidon 03-19-2021 Lactate [Moles/Vol] 2.3 mmol/L Critically high 0.7-2.0 [facility] Comment on above: Performed By: #### L ACT3 ####[facility] [place] [address] Lactic Acid, Plasmaon 2020 Lactate [Moles/Vol] 2.3 mmol/L Critically high 0.7 - 2.0 mmol/L [facility] No Panel Informationon 03-19 Interpretation and review of laboratory results Abnormal [facility] Test Performed by [facility], [address] [place] [address] [facility] RBC MORPHOLOGYon 03-19-2021 Poikilocytes Slight [facility] RBC (Bld) [#/Vol] ABNORMAL [facility] Tear Drop Cells Slight [facility] RBC Morphologyon 11-19-2021 Ovalocytes Slight Normal [facility] Comment on above: Performed By: #### B GLU #### [facility] [address] [place] [address] Poikilocytosis Slight Normal [facility] Comment on above: Performed By: #### B GLU #### [facility] [address] [place] [address] Polychromasia Slight Normal [facility] Comment on above: Performed By: #### B GLU #### [facility] [address] [place] [address] RBC morphology finding Nom (Bld) ABNORMAL Normal [facility] Comment on above: Performed By: #### B GLU #### [facility] [address] [place] [address] Tear Drop Forms Slight Normal [facility] Comment on above: Performed By: #### B GLU #### [facility] [address] [place] [address] Respiratory Panel, Molecular , with COVID-19 (Restricted: peds pts or suitable admitted adults)on 03-19-2021 Interpretation and review of laboratory results Abnormal [facility] Respiratory Panel Molecular, with COVID POSITIVE: Respiratory Syncytial Virus DETECTED. _ Expected Result: Not Detected [employer] Upper Respiratory Pathogens PCR Panel can detect the following targets: SARS-CoV-2, Adenovirus, Coronavirus 229E, Coronavirus HKU1, Coronavirus NL63, Coronavirus OC43, Human Metapneumovirus, Human Rhinovirus/Enteroviru s, Influenza A, Influenza B, Parainfluenza Virus 1, Parainfluenza Virus 2, Parainfluenza Virus 3, Parainfluenza Virus 4, Respiratory Syncytial Virus, Bordetella pertussis, Bordetella parapertussis, Chlamydia pneumoniae, Mycoplasma pneumoniae. Method: Real-time PCR. Abnormal [facility] Test Performed by [facility], [address] [place] [id number] [place] [address] LAB [facility] SARS-CoV-2, Flu A/B and RSVo n 03-19-2021 SARS-CoV-2 (COVID-19) RNA SHIRLEY+probe Ql (Unsp spec) SARS-CoV-2 --> Status: F Not Detected. Flu A PCR --> Status: F Not Detected. Flu B PCR --> Status: F Not Detected. RSV PCR --> Status: F DETECTED Expected Result: Not Detected _ Method: Real-time, RT-PCR This assay was developed by [employer] and distributed under an Emergency Use Authorization (EUA) granted by the FDA for the qualitative detection of nucleic acids from SARS-CoV-2, Influenza A, Influenza B, and Respiratory Syncytial Virus. Provider and patient fact sheets can be found at https://www.[facility].gov/ edia/037456/download and https://www.[facility].gov/ edia/610582/download. Expected Result: Not Detected _ Method: Real-time, RT-PCR This assay was developed by [employer] and distributed under an Emergency Use Authorization (EUA) granted by the FDA for the qualitative detection of nucleic acids from SARS-CoV-2, Influenza A, Influenza B, and Respiratory Syncytial Virus. Provider and patient fact sheets can be found at https://www.[facility].gov/ Rock[employer]ia/544556/download and https://www.[facility].gov/ [employer]/134323/download. Abnormal [facility] Comment on above: Performed By: #### C VFLR #### [facility] [address] [place] [address] , [address] Troponinon 03-19-2021 Troponin I.cardiac [Mass/Vol] 0.017 ng/mL 0.000 - 0.034 ng/mL [facility] Comment on above: . Test Performed by [facility], [address] [place], [place] [address] [facility] Troponin Ion 03-19-2021 Troponin I.cardiac [Mass/Vol] 0.017 ng/mL Normal 0.000-0.034 [facility] Comment on above: Result Comment: . Performed By: #### B MP3, TROPN ####[facility] [place] [address] XR CHEST PORTABLEon 03-19-20 Patient Name: KATHYA HOOPER Diagnostic Radiology ACCESSION EXAM DATE/TIME PROCEDURE ORDERING PROVIDER [id number] 03/19/2021 17:10 EST CR Chest Portable [id number] -NESHEIM, BRADY CPT code 83999 Reason For Exam (CR Chest Portable) hypoxia [...] MD - 03/19/2021 [facility]: [id number] Radiology ACCESSION EXAM DATE/TIME PROCEDURE ORDERING PROVIDER [id number] 03/19/2021 17:10 EST CR Chest Portable [id number] -NESHEIM, BRADY CPT code 61040 Reason For Exam (CR Chest Portable) hypoxia [...] J Transcribed Date and Time: 03/19/2021 5:22 [facility] Work Phone: Radiology Study observation (narrative) [facility] Work Phone: XR CHEST PORTABLEOrdered By: Keshawn Simpson on 03-19-2021 [facility] Work Phone: Basic Metabolic Panelon 03-01 Calcium [Mass/Vol] 8.4 mg/dL Normal 8.4-10.4 [facility] Comment on above: Performed By: #### H MAYKEL BMP3 #### [facility] [address] [place] [address] Glucose [Mass/Vol] 110 mg/dL High 70-100 [facility] Comment on above: Performed By: #### H MAYKEL BMP3 #### [facility] [address] [place] [address] Anion gap [Moles/Vol] 7 mmol/L Normal 3-13 [facility] Comment on above: Performed By: #### H MAYKEL BMP3 #### [facility] [address] [place] [address] CO2 [Moles/Vol] 26 mmol/L Normal 22-30 [facility] Comment on above: Performed By: #### Kerri BRAR BMP3 #### [facility] [address] [place] [address] Creatinine [Mass/Vol] 0.54 mg/dL Normal 0.52-1.25 [facility] Comment on above: Performed By: #### H MAYKEL BMP3 #### [facility] [address] [place] [address] eGFR OTHER > 90.0 Normal >60 [facility] Comment on above: Result Comment: KDIG [...] By: #### H MAYKEL BMP3 #### [facility] [address] [place] [address] GFR/1.73 sq M.predicted among blacks MDRD (S/P/Bld) [Vol rate/Area] mL/min/{1.73_m2} Normal >60 [facility] Comment on above: Performed By: #### H EMDF, BMP3 #### [facility] [address] [place] [address] Urea nitrogen [Mass/Vol] 18 mg/dL High 7-17 [facility] Comment on above: Performed By: #### H EMDF, BMP3 #### [facility] [address] [place] [address] Potassium [Moles/Vol] 3.9 mmol/L Normal 3.5-5.1 [facility] Comment on above: Performed By: #### H EMDF, BMP3 #### [facility] [address] [place] [address] Chloride [Moles/Vol] 104 mmol/L Normal 98-107 [facility] Comment on above: Performed By: #### H EMDF, BMP3 #### [facility] [address] [place] [address] Sodium [Moles/Vol] 137 mmol/L Normal 135-145 [facility] Comment on above: Performed By: #### H EMDF, BMP3 #### [facility] [address] [place] [address] Anion gap [Moles/Vol] 7 mmol/L 3 - 13 mmol/L [facility] Calcium [Mass/Vol] 8.4 mg/dL 8.4 - 10. 4 mg/dL [facility] Chloride [Moles/Vol] 104 mmol/L 98 - 10 7 mmol/L [facility] CO2 [Moles/Vol] 26 mmol/L 22 - 30 mmol/L [facility] Creatinine [Mass/Vol] 0.54 mg/dL 0.52 - 1.25 mg/dL [facility] EGFR IF NonAfrican Hungarian >90.0 >60 mL/min [facility] Comment on above: KDIGO guidelines [...] 110 mg/dL High 70 - 100 mg/dL [facility] Interpretation and review of laboratory results Abnormal [facility] Potassium [Moles/Vol] 3.9 mmol/L 3.5 - 5.1 mmol/L [facility] Sodium [Moles/Vol] 137 mmol/L 135 - 145 mmol/L [facility] Urea nitrogen (BldV) [Mass/Vol] 18 mg/dL High 7 - 17 mg/dL [facility] Brain Natriuretic Peptideon 03-18-2021 Interpretation and review of laboratory results Abnormal [facility] Natriuretic peptide B (Bld) [Mass/Vol] 710 pg/mL High 0 - 125 pg/mL [facility] Test Performed by [facility], [address] [place] [address] LAB [facility] CBC Auto Differentialon 03-01 Absolute [...] (Stl) 13.6 g/dL 13.0 - 18.0 g/dL [facility] Interpretation and review of laboratory results [...] [#/Vol] 8.8 10*3/uL 3.6 - 10.7 10*3/uL [facility] Test Performed by [facility], [address] [place], [place], [place] [id number] [place] [address] LAB [facility] COVID-19, Flu A/B, and RSV C [facility] 03-18-2021 Influenza A by PCR Not detected [facility] Influenza B by PCR Not detected [facility] Interpretation and review of laboratory results Abnormal [facility] RSV PCR DETECTED Expected Result: Not Detected _ Method: Real-time, RT-PCR This assay was developed by [employer] and distributed under an Emergency Use Authorization (EUA) granted by the FDA for the qualitative detection of nucleic acids from SARS-CoV-2, Influenza A, Influenza B, and Respiratory Syncytial Virus. Provider and patient fact sheets can be found at https://www.[facility].gov/m edia/524821/download and https://www.fda.gov/m edia/202830/download. Abnormal [facility] SARS-CoV-2 (COVID-19) RNA SHIRLEY+probe Ql (Unsp spec) Not detected [facility] Test Performed by [facility], [address] [facility] [address], [place] [id number] [place] [address] LAB [facility] CR Chest Portableon 03-18-20 21 CR Chest Portable Patient Name: KATHYA HOOPER Diagnostic Radiology ACCESSION EXAM DATE/TIME PROCEDURE ORDERING PROVIDER [id number] 03/18/2021 15:30 EST CR Chest Portable [id number] -BOO CASTRO CPT code 17633 Reason For Exam (CR Chest Portable) sob, [...] Date and Time: 03/18/2021 3:35 Normal [facility] CTA Chest W WO (PE study)on 03-18-2021 Patient Name: KATHYA HOOPER Computed Tomography ACCESSION EXAM DATE/TIME PROCEDURE ORDERING PROVIDER [id number] 03/18/2021 16:27 EST CTA Chest w/ + w/o [id number] -Alyson CASTRO CPT code 22014 Q9967 Reason For Exam (CTA Chest w/ [...] Date and Time: 03/18/2021 4:36 [facility] BARNETT [facility] Malcolm Michaels MD - 03/18/2021 Patient Name: KATHYA HOOPER Computed Tomography ACCESSION EXAM DATE/TIME PROCEDURE ORDERING PROVIDER [id number] 03/18/2021 16:27 EST CT[facility] Chest w/ + w[facility] [id number] [facility] CPT code 30524 Q9967 Reason For Exam (CTA Chest w/ [...] Tomography ACCESSION EXAM DATE/TIME PROCEDURE ORDERING PROVIDER [id number] 03/18/2021 16:27 EST CTA Chest w/ + w/o [id number] -CASTROAlyson TIM CPT code 94433 Q9967 Reason For Exam (CTA Chest w/ [...] Date and Time: 03/18/2021 4:36 Normal [facility] CTA HEAD NECK W WO CONTRASTo n 03-18-2021 Patient Name: KATHYA HOOPER Computed Tomography ACCESSION EXAM DATE/TIME PROCEDURE ORDERING PROVIDER [id number] 03/18/2021 16:26 EST CTA Head/Neck w/ + w/o [id number] -alyson CASTRO CPT code 87665 91529 Q9967 Reason For Exam (CTA Head/Neck w/ [...] Tomography ACCESSION EXAM DATE/TIME PROCEDURE ORDERING PROVIDER [id number] 03/18/2021 16:26 EST CTA Head/Neck w/ + w/o [id number] -alyson CASTRO CPT code 66065 91812 Q9967 Reason For Exam (CTA Head/Neck w/ [...] Tomography ACCESSION EXAM DATE/TIME PROCEDURE ORDERING PROVIDER [id number] 03/18/2021 16:26 EST CTA Head/Neck w/ + w/o [id number] -alyson CASTRO CPT code 40249 09292 Q9967 Reason For Exam (CTA Head/Neck w/ [...] Date and Time: 03/18/2021 4:52 Normal [facility] ED Provider Noteon ED Provider [facility] EMERGENCY DEPARTMENT ENCOUNTER Pt [...] patient come from an ECF, SNF, Rehab, Snf or other Congregate setting: no (If yes to above patient needs a Covid-19 test) HPI Kathya Hooper is a 66 y.o. 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 Normal [facility] Hemogram w/ Autodiffon 03-18 Abs Baso Cnt 0.0 10*3/uL Normal 0.0-0.2 [facility] Comment on above: Performed By: #### H EMDMaurice BMP3 #### [facility] [address] [place] [address] Abs Neutrophile Cnt 7.3 10*3/uL High 1.8-7.0 [facility] Comment on above: Performed By: #### H EMDF BMP3 #### [facility] [address] [place] [address] Basophils/100 WBC (Bld) 0.5 % Normal 0.0-2.0 [facility] Comment on above: Performed By: #### H EMDF, BMP3 #### [facility] [address] [place] [address] Eosinophils (Bld) [#/Vol] 0.0 10*3/uL Normal 0.0-0.5 [facility] Comment on above: Performed By: #### H EMDF, BMP3 #### [facility] [address] [place] [address] Eosinophils/100 WBC (Bld) 0.1 % Low 1.0-6.0 [facility] Comment on above: Performed By: #### H EMDF, BMP3 #### [facility] [address] [place] [address] Erythrocyte distribution width (RBC) [Ratio] 12.9 % Normal 11.5-14.5 [facility] Comment on above: Performed By: #### H EMDF, BMP3 #### [facility] [address] [place] [address] Granulocytes/100 WBC (Bld) 82.8 % High 40.0-80.0 [facility] [employer] Comment on above: Performed By: #### H EMDF, BMP3 #### [facility] [address] [place] [address] Hematocrit (Bld) [Volume fraction] 38.3 % Low 40.0-52.0 [facility] [employer] Comment on above: Performed By: #### H EMDF, BMP3 #### [facility] [address] [place] [address] Hemoglobin (Bld) [Mass/Vol] 13.6 g/dL Normal 13.0-18.0 [facility] [employer] Comment on above: Performed By: #### H EMDF, BMP3 #### [facility] [address] [place] [address] Lymphocytes (Bld) [#/Vol] 0.7 10*3/uL Low 1.0-4.3 [facility] [employer] Comment on above: Performed By: #### H EMDF, BMP3 #### [facility] [address] [place] [address] Lymphocytes/100 WBC (Bld) 7.6 % Low 20.0-40.0 [facility] [employer] Comment on above: Performed By: #### H EMDF, BMP3 #### [facility] [address] [place] [address] MCH (RBC) [Entitic mass] 32.0 pg Normal 26.0-34.0 [facility] Comment on above: Performed By: #### H EMDF, BMP3 #### [facility] [address] [place] [address] MCHC 35.4 % Normal 32.0-36.0 [facility] Comment on above: Performed By: #### H EMDF, BMP3 #### [facility] [address] [place] [address] MCV (RBC) [Entitic vol] 90.2 fL Normal 80.0-98.0 [facility] Comment on above: Performed By: #### H EMDF, BMP3 #### [facility] [address] [place] [address] Monocytes (Bld) [#/Vol] 0.8 10*3/uL Normal 0.0-0.8 [facility] Comment on above: Performed By: #### H EMDF, BMP3 #### [facility] [address] [place] [address] Monocytes/100 WBC (Bld) 9.0 % Normal 2.0-10.0 [facility] Comment on above: Performed By: #### H EMDF, BMP3 #### [facility] [address] [place] [address] Platelet mean volume (Bld) [Entitic vol] 9.8 fL Normal 7.4-10.4 [facility] Comment on above: Performed By: #### H EMDF, BMP3 #### [facility] [address] [place] [address] Platelets (Bld) [#/Vol] 129 10*3/uL Low 140-440 [facility] Comment on above: Performed By: #### H EMDF, BMP3 #### [facility] [address] [place] [address] RBC (Bld) [#/Vol] 4.24 10*6/uL Low 4.40-5.90 [facility] Comment on above: Performed By: #### H EMDF, BMP3 #### [facility] [address] [place] [address] WBC (Bld) [#/Vol] 8.8 10*3/uL Normal 3.6-10.7 [facility] Comment on above: Performed By: #### H EMDF, BMP3 #### [facility] [address] [place] [address] MAGNESIUMon 11-18-2021 Magnesium [Mass/Vol] 2.0 mg/dL 1.6 - 2 .3 mg/dL [facility] Magnesiumon 03-18-2021 Magnesium [Mass/Vol] 2.0 mg/dL Normal 1.6-2.3 [facility] Comment on above: Performed By: #### H EMDMaurice, BMP3 #### [facility] [address] [place] [address] NT pro BNPon 03-18-2021 Natriuretic peptide B (Bld) [Mass/Vol] 710 pg/mL High 0-125 [facility] Comment on above: Performed By: #### H MAYKEL, BMP3 #### [facility] [address] [place] [address] No Panel Informationon 03-18 Test Performed by [facility], [facility] [address] LAB [facility] PROTIME/INR & PTTon 03-18-20 aPTT Coag (Bld) [Time] 30.7 s High 20.0 - 30.5 s [facility] Comment on above: NOTE: The therapeuti c time for Heparin anticoagulation, based on Xa activity inhibition, is an APTT of 46-80 seconds. INR Coag (Bld) [Relative time] 1.1 {INR} [facility] Comment on above: Recommended Anticoag [...] Interpretation and review of laboratory results Abnormal [facility] PT Coag (PPP) [Time] 11.4 s 9.0 - 12.0 s [facility] Comment on above: . Test Performed by [facility], [facility] [address] LAB [facility] Protime AND APTTon aPTT Coag (Bld) [Time] 30.7 s High 20.0-30.5 [facility] Comment on above: Result Comment: NOTE : The therapeutic time for Heparin anticoagulation, based on Xa activity inhibition, is an APTT of 46-80 seconds. Performed By: #### H MITALI BRAR #### [facility] [address] [place] [address] INR 1.1 Normal 0.9-1.1 [facility] Comment on above: Result Comment: Yefri [...] By: #### H MITALI BRAR #### [facility] [address] [place] [address] PT Coag (PPP) [Time] 11.4 s Normal 9.0-12.0 [facility] Comment on above: Result Comment: . Performed By: #### H MITALI BRAR #### [facility] [address] [place] [address] SARS-CoV-2, Flu A/B and RSVo n 03-18-2021 SARS-CoV-2 (COVID-19) RNA SHIRLEY+probe Ql (Unsp spec) SARS-CoV-2 --> Status: F Not Detected. Flu A PCR --> Status: F Not Detected. Flu B PCR --> Status: F Not Detected. RSV PCR --> Status: F DETECTED Expected Result: Not Detected _ Method: Real-time, RT-PCR This assay was developed by [employer] and distributed under an Emergency Use Authorization (EUA) granted by the FDA for the qualitative detection of nucleic acids from SARS-CoV-2, Influenza A, Influenza B, and Respiratory Syncytial Virus. Provider and patient fact sheets can be found at https://www.fda.gov/m edia/778797/download and https://www.fda.gov/m edia/052151/download. Expected Result: Not Detected _ Method: Real-time, RT-PCR This assay was developed by [employer] and distributed under an Emergency Use Authorization (EUA) granted by the FDA for the qualitative detection of nucleic acids from SARS-CoV-2, Influenza A, Influenza B, and Respiratory Syncytial Virus. Provider and patient fact sheets can be found at https://www.fda.gov/m edia/632012/download and https://www.fda.gov/m edia/474957/download. Abnormal [facility] Comment on above: Performed By: #### C VFLR #### [facility] [address] [place] [address] , [address] TS GELon 03-18-2021 TS GEL ABO Group: O Rh, Gel: POS Antibody Screen Gel: NEG Normal [facility] Comment on above: Performed By: #### T SGL #### [facility] TYPE AND SCREENon 03-18-2021 ABO Grouping O [facility] Rh Type Positive [facility] Test Performed by [facility], [address], [place], [place] [address] [facility] XR CHEST PORTABLEon 03-18-20 Patient Name: KATHYA HOOPER Diagnostic Radiology ACCESSION EXAM DATE/TIME PROCEDURE ORDERING PROVIDER [id number] 03/18/2021 15:30 EST CR Chest Portable [id number] -BOO CASTRO CPT code 68814 Reason For Exam (CR Chest Portable) sob, [...] Radiology ACCESSION EXAM DATE/TIME PROCEDURE ORDERING PROVIDER [id number] 03/18/2021 15:30 EST CR Chest Portable [id number] -BOO CASTRO CPT code 31873 Reason For Exam (CR Chest Portable) sob, [...] KRIKOR Transcribed Date and Time: 03/18/2021 3:35 [facility] Work Phone: Radiology Study observation (narrative) [facility] Work Phone: XR CHEST PORTABLEOrdered By: Alejandra Munoz on 03-18-2021 [facility] Work Phone: ED Provider Noteon ED Provider Note - Attestation signed by Edwin Montejo MD at 10/31/2020 7:09 AM Emergency Medicine Attending Note This patient was seen and treated independently by the ssds mk 2 advanced operator. I was present and available in the [...] ? (more content not included)... Normal [facility] FL GI TUBE EVALUATION W CONT RASTOrdered By: Helen Toledo on 10-30-2020 Patient Name: KATHYA HOOPER Fluoroscopy ACCESSION EXAM DATE/TIME PROCEDURE ORDERING PROVIDER [id number] 10/30/2020 15:07 EDT RF Intro Long GI Tube w/ KRISTA TOLEDO, HELEN Rojas CPT code 47684 Reason For Exam (RF Intro Long GI [...] J Transcribed Date and Time: 10/30/2020 4:06 [facility] Work Phone: [facility], [facility] Incoming Radiology Results From [facility] - 10/30/2020 4:07 PM EDT Patient Name: KATHYA HOOPER Fluoroscopy ACCESSION EXAM DATE/TIME PROCEDURE ORDERING PROVIDER [id number] 10/30/2020 15:07 EDT RF Intro Long GI Tube w/ KRISTA TOLEDO AMY L Fluoro CPT code 26365 Reason For Exam (RF Intro Long GI [...] J Transcribed Date and Time: 10/30/2020 4:06 [facility] Work Phone: [facility] Work Phone: RF Intro Long GI Tube w/ Flu oroon 10-30-2020 RF Intro Long GI Tube w/ Fluoro Patient Name: KATHYA HOOPER Fluoroscopy ACCESSION EXAM DATE/TIME PROCEDURE ORDERING PROVIDER [id number] 10/30/2020 15:07 EDT RF Intro Long GI Tube w/ KRISTA TOLEDO AMY L Fluoro CPT code 01103 Reason For Exam (RF Intro Long GI [...] J Transcribed Date and Time: 10/30/2020 4:06 [facility] ED Provider Noteon ED Provider Note [facility] ED EMERGENCY DEPARTMENT ENCOUNTER Pt Name: [...] Gatherings with Friends and Family: ? Attends [employer] Services: ? Active Member of Clubs or [...] Soft, non-distended (more content not included)... Normal [facility] [place] GI TUBE EVALUATION W CONT RASTOrdered By: Elizabeth Moura on 09-22-2020 Patient Name: KATHYA HOOPER Fluoroscopy ACCESSION EXAM DATE/TIME PROCEDURE ORDERING PROVIDER [id number] 09/22/2020 04:09 EDT RF Intro Long GI Tube w/ 5816 -ELIZABETH MOURA CPT code 27206 Reason For Exam (RF Intro Long GI [...] Phone: [facility], [facility] Incoming Radiology Results From [facility] - 09/22/2020 5:11 AM EDT Patient Name: KATHYA HOOPER Fluoroscopy ACCESSION EXAM DATE/TIME PROCEDURE ORDERING PROVIDER [id number] 09/22/2020 04:09 EDT RF Intro Long GI Tube w/ 5816 -ELIZABETH MOURA CPT code 97545 Reason For Exam (RF Intro Long GI [...] Fluoroscopy ACCESSION EXAM DATE/TIME PROCEDURE ORDERING PROVIDER [id number] 09/22/2020 04:09 EDT RF Intro Long GI Tube w/ 5816 -ELIZABETH MOURA CPT code 83137 Reason For Exam (RF Intro Long GI [...] Date and Time: 09/22/2020 5:11 Normal [facility] ED Provider Noteon ED Provider Note [facility] ED EMERGENCY DEPARTMENT ENCOUNTER Pt Name: [...] otherwise acutely negative except as in the [place]. PAST MEDICAL HISTORY Past Medical History: Diagnosis [...] (AQUAPHOR) ointment Apply topically as needed. Balsam Froil[place] Oil (VENELEX) OINT ointment Apply topically every [...] file Gets together: Not on file Attends sabianist service: Not on file Active member of [...] level (more content not included)... Normal [facility] [place] GI TUBE EVALUATION W BRANDON Warner 06-26-2020 Patient Name: KATHYA HOOPER Fluoroscopy ACCESSION EXAM DATE/TIME PROCEDURE ORDERING PROVIDER [id number] 06/26/2020 20:20 EST RF Intro Long GI Tube w/ [id number] -GOMBASH ABELARDO Fluoro CPT code 21047 Reason For Exam (RF Intro Long GI [...] Time: 06/26/2020 9:16 [facility] Work Phone: [facility], [facility] Results From [facility] - 06/26/2020 9:16 PM EST Patient Name: KATHYA HOOPER Fluoroscopy ACCESSION EXAM DATE/TIME PROCEDURE ORDERING PROVIDER [id number] 06/26/2020 20:20 EST RF Intro Long GI Tube w/ [id number] -GOMBMYRNA PRAKASHER Fluoro CPT code 91753 Reason For Exam (RF Intro Long GI [...] Fluoroscopy ACCESSION EXAM DATE/TIME PROCEDURE ORDERING PROVIDER [id number] 06/26/2020 20:20 EST RF Intro Long GI Tube w/ 388287 -ABELARDO RIOS CPT code 14719 Reason For Exam (RF Intro Long GI [...] Date and Time: 06/26/2020 9:16 Normal [facility] Clinical Summary: HMSPatient IDon 05-22-2019 WOP [facility] Work Phone: Office Visit: New - visi t with practice, Rm: 2on 05-22-2019 NEGATED: Highlighted rowCT scan history of the right lower extremity on 05/16/2019 at [facility] Work Phone: NEGATED: Highlighted rowTobacco smoking status NHIS current someday smoker [facility] Work Phone: NEGATED: Highlighted rowxray history of the pelvis with hip on 05/11/2019 at [facility] , of the pelvis on 05/13/2019 at [facility] Work Phone: CT LOWER EXTREMITY RIGHT WO CONTRASTOrdered By: Elizabeth Moura on 05-16-2019 Patient Name: KATHYA HOOPER ---CT--- Exam Date/Time 05/16/2019 21:10:[address] Low Ext w/o Contrast Right Ordering Physician ELIZABETH BARKER Accession Number [id number] CPT4 Codes 61241 () Reason For Exam right hip pain, [...] RISA Transcribed Date and Time: 05/16/2019 9:24 [facility] Work Phone: [facility], [facility] Results From [facility] - 05/16/2019 9:24 PM EST Patient Name: KATHYA HOOPER ---CT--- Exam Date/Time 05/16/2019 21:10:[address] Low Ext w/o Contrast Right Ordering Physician ELIZABETH BARKER Accession Number [id number] CPT4 Codes 45481 () Reason For Exam right hip pain, [...] RISA Transcribed Date and Time: 05/16/2019 9:24 [facility] Work Phone: Differential,Body Fluidson 0 09-27-2018 Other Cells 46 % Normal [facility] Comment on above: Result Comment: Bloo dy specimen with reactive mesothelial cells and chronic inflammation with occasional hemophagocytosis. 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 [address] CULTURE AND STAIN - FLUIDon 09-25-2018 CULTURE AND STAIN - FLUID CULTURE & STAIN - FLUID --> Status: F No growth at 5 days. STAIN GRAM --> Status: F Moderate polymorphonuclear cells/lpf. Moderate mononuclear cells/lpf No organisms seen. Cytocentrifugation performed. Moderate mononuclear cells/lpf No organisms seen. Cytocentrifugation performed. Normal [facility] Comment on above: Performed By: #### H EMDF, PT, BMP3M, PHOS3, MG3, CK3 #### [address] [place], [place] #### VD25H #### [facility] [address] [place] [address] Cell Count,Body Fluidon - Nucleated Cells 2391 {cells}/uL Normal [facility] Comment on above: Performed By: #### H EMDF, PT, BMP3M, PHOS3, MG3, CK3 #### [place] [place], [place] #### VD25H #### [facility] [address] [place] [address] [place] [address] {RBC}/uL Normal [facility] Comment on above: Performed By: #### H EMDF, PT, BMP3M, PHOS3, MG3, CK3 #### [facility] [address] [place], [place] #### VD25H #### [facility] [address] [place] [address] Fluid Type Thoracentesis Normal [facility] Comment on above: Performed By: #### H EMDF, PT, BMP3M, PHOS3, MG3, CK3 #### [address] [place], [place] #### VD25H #### [facility] [address] [place] [address] Differential,Body Fluidson 0 09-25-2018 Lymphocytes/100 WBC (Bld) 28 % Normal [facility] Comment on above: Performed By: #### H EMDF, PT, BMP3M, PHOS3, MG3, CK3 #### [facility] [address] [place], [place] #### VD25H #### [facility] [address] [place] [address] Monocytes/100 WBC (Bld) 1 % Normal [facility] Comment on above: Performed By: #### H EMDF, PT, BMP3M, PHOS3, MG3, CK3 #### [address] [place], [place] #### VD25H #### [facility] [address] [place] [address] Neutrophils/100 WBC (Bld) 25 % Normal [facility] Comment on above: Performed By: #### H EMDF, PT, BMP3M, PHOS3, MG3, CK3 #### [address] [place], [place] #### VD25H #### [facility] [address] [place] [address] Cells Counted for Diff 100 Normal [facility] Comment on above: Performed By: #### H EMDF, PT, BMP3M, PHOS3, MG3, CK3 #### [address] [place], [place] #### VD25H #### [facility] [address] [place] [address] LDH, Body Fluidon 09-25-2018 LDH, Body Fluid 174 U/L Normal No Range [facility] Comment on above: Performed By: #### H EMDF, PT, BMP3M, PHOS3, MG3, CK3 #### [address] [place], [place] #### VD25H #### [facility] [address] [place] [address] Protein, Total Body Fluidon 09-25-2018 Protein,Total-Body Fld 3.4 g/dL Normal No Range [facility] Comment on above: Performed By: #### H EMDF, PT, BMP3M, PHOS3, MG3, CK3 #### [facility] [address] [place] [address] #### VD25H #### [facility] [address] [place] [address] US Thora-Aspir Pleura w/ Evelin geon 09-25-2018 US Thora-Aspir Pleura w/ Image Patient Name: KATHYA HOOPER Ultrasound Exam Date/Time 09/25/2018 13:23:41 EDT Exam US Thora-Aspir Pleura w/ Image Ordering Physician SALO DAVIS Accession Number [id number] CPT4 Codes 99320 () Reason For Exam pleural effusion Report THORACENTESIS LEFT SIDE CLINICAL INDICATION: Left pleural effusion TECHNIQUE: Ultrasound guidance used. FINDINGS: Written informed consent was obtained and placed in the patient's chart for an ultrasound-guided thoracentesis. The exam was performed under the supervision of Dr. Mlacolm Michaels, by Anila De La Vega PA-C. [...] Date and Time: 09/25/2018 3:07 Normal [facility] CULTURE MYCOBACTERIAon 09-03 CULTURE MYCOBACTERIA CULTURE MYCOBACTERI A --> Status: F No acid-fast bacilli isolated after 6 weeks incubation. Normal [facility] Comment on above: Performed By: #### H EMDF, PT, BMP3M, PHOS3, MG3, CK3 #### [facility] [address] [place] [address] #### VD25H #### [facility] [address] [place] [address] CULTURE URINEon 08-23-2018 CULTURE URINE CULTURE URINE --> Status: F No growth (<1,000 CFU/ml). Normal [facility] Comment on above: Order Comment: Speci men Source Comment:Urine, clean catch Performed By: #### H EMDF, PT, BMP3M, PHOS3, MG3, CK3 #### [facility] [facility] [address] [place] [address] #### VD25H #### [facility] [address] [place] [address] CR Chest Portableon 08-23-19 19 CR Chest Portable Patient Name: KATHYA HOOPER Diagnostic Radiology Exam Date/Time 08/22/2018 07:07:07 EDT Exam CR Chest Portable Ordering Physician HIRAM ONEIL Accession Number [id number] CPT4 Codes 75897 () Reason For Exam dyspnea Report Portable [...] Transcribed Date and Time: 08/22/2018 7:31 Normal [facility] Glucose,Bedsideon 08-22-2018 Glucose mass conc 127 mg/dL High 70-100 [facility] Comment on above: Result Comment: Test performed by glucose meter. Results may be 10%-15% lower than serum/plasma values. (CLIA ID [id number]) Performed By: #### H EMDF, PT, BMP3M, PHOS3, MG3, CK3 #### [facility] [address] [place], [place] #### VD25H #### [facility] [address] [place] [address] Urinalysis,Macroon 9 Appearance Nom (U) clear Normal Clear [facility] Comment on above: Performed By: #### H EMDF, PT, BMP3M, PHOS3, MG3, CK3 #### [facility] [address] [place] #### VD25H #### [facility] [address] [place] [address] Bilirubin,Ur Negative Normal Negative [facility] Comment on above: Performed By: #### H EMDF, PT, BMP3M, PHOS3, MG3, CK3 #### [facility] [address] [place] #### VD25H #### [facility] [address] [place] [address] Color Nom (U) dk.yel Normal Lt. Yellow [facility] Comment on above: Performed By: #### H EMDF, PT, BMP3M, PHOS3, MG3, CK3 #### [facility] [address] [place] #### VD25H #### [facility] [address] [place] [address] Glucose Ql (U) NORM Normal Negative [facility] Comment on above: Performed By: #### H EMDF, PT, BMP3M, PHOS3, MG3, CK3 #### [facility] [address] [place] #### VD25H #### [facility] [address] [place] [address] Ketone,Urine Negative Normal Negative [facility] Comment on above: Performed By: #### H EMDF, PT, BMP3M, PHOS3, MG3, CK3 #### [facility] [address] [place] #### VD25H #### [facility] [address] [place] [address] Nitrite Ql (U) Negative Normal Negative [facility] Comment on above: Performed By: #### H EMDF, PT, BMP3M, PHOS3, MG3, CK3 #### [address] [place] [address] [place], [place] #### VD25H #### [facility] [address] [place] [address] Occult Blood,Ur Negative Normal Negative [facility] Comment on above: Performed By: #### H EMDF, PT, BMP3M, PHOS3, MG3, CK3 #### [address] [place] [place], [place] #### VD25H #### [facility] [address] [place] [address] pH (U) 8.0 Normal 5.0-8.0 [facility] Comment on above: Performed By: #### H EMDF, PT, BMP3M, PHOS3, MG3, CK3 #### [address] [place], [place] #### VD25H #### [facility] [address] [place] [address] Protein mass conc (U) Negative Normal Negative [facility] Comment on above: Performed By: #### H EMDF, PT, BMP3M, PHOS3, MG3, CK3 #### [facility] [address] [place] #### VD25H #### [facility] [address] [place] [address] Specific [place],Urine 1.015 Normal 1.005-1.030 [facility] Comment on above: Performed By: #### H EMDF, PT, BMP3M, PHOS3, MG3, CK3 #### [facility] [address] [place] #### VD25H #### [facility] [address] [place] [address] Urobilinogen Qn (U) 1 mg/dL Normal 0-1 [facility] Comment on above: Performed By: #### H EMDF, PT, BMP3M, PHOS3, MG3, CK3 #### [address] [place] #### VD25H #### [facility] [address] [place] [address] WBC #/vol (Bld) Negative Normal Negative [facility] Comment on above: Performed By: #### H EMDF, PT, BMP3M, PHOS3, MG3, CK3 #### [address] [place] #### VD25H #### [facility] [address] [place] [address] Basic Metabolic Panelon 04-2 Calcium mass conc 7.8 mg/dL Low 8.4-10.4 [facility] Comment on above: Performed By: #### H EMDF, PT, BMP3M, PHOS3, MG3, CK3 #### [address] [place] #### VD25H #### [facility] [address] [place] [address] Glucose mass conc 102 mg/dL High 70-100 [facility] Comment on above: Performed By: #### H EMDF, PT, BMP3M, PHOS3, MG3, CK3 #### [place] [address] [place] #### VD25H #### [facility] [address] [place] [address] Anion gap molar conc 0 Normal [facility] Comment on above: Performed By: #### H EMDF, PT, BMP3M, PHOS3, MG3, CK3 #### [address] [address] #### VD25H #### [facility] [address] [place] [address] CO2 molar conc 37 mmol/L High 22-30 [facility] Comment on above: Performed By: #### H EMDF, PT, BMP3M, PHOS3, MG3, CK3 #### [address] #### VD25H #### [facility] [address] [place] [address] Creatinine mass conc 0.46 mg/dL Low 0.52-1.25 [facility] Comment on above: Performed By: #### H EMDF, PT, BMP3M, PHOS3, MG3, CK3 #### [address] [address] #### VD25H #### [facility] [address] [place] [address] GFR/1.73 sq M predicted among blacks MDRD vol rate/area (S/P/Bld) mL/min/{1.73_m2} Normal >60 [facility] Comment on above: Performed By: #### H EMDF, PT, BMP3M, PHOS3, MG3, CK3 #### [address] [address] #### VD25H #### [place] [address] [place] [address] GFR/1.73 sq M predicted among non-blacks MDRD vol rate/area (S/P/Bld) mL/min/{1.73_m2} Normal >60 [facility] Comment on above: Result Comment: Sour ce- MDRD equation with creatinine calibration to IDMS(NKDEP) eGFR not recommended for drug dose adjustment Performed By: #### H EMDF, PT, BMP3M, PHOS3, MG3, CK3 #### [address] [place] [place] #### VD25H #### [facility] [address] [place] [address] Urea nitrogen mass conc 7 mg/dL Normal 7-20 [facility] Comment on above: Performed By: #### H EMDF, PT, BMP3M, PHOS3, MG3, CK3 #### [place] [facility] #### VD25H #### [facility] [address] [place] [address] Potassium molar conc 3.7 mmol/L Normal 3.5-5.1 [facility] Comment on above: Performed By: #### H EMDF, PT, BMP3M, PHOS3, MG3, CK3 #### [address] [place] #### VD25H #### [facility] [address] [place] [address] Chloride molar conc 101 mmol/L Normal 98-107 [facility] Comment on above: Performed By: #### H EMDF, PT, BMP3M, PHOS3, MG3, CK3 #### [address] [place] #### VD25H #### [facility] [address] [place] [address] Sodium molar conc 138 mmol/L Normal 135-145 [facility] Comment on above: Performed By: #### H EMDF, PT, BMP3M, PHOS3, MG3, CK3 #### [place] [facility] #### VD25H #### [facility] [address] [place] [address] CR Chest Portableon 08-22-19 19 CR Chest Portable Patient Name: KATHYA HOOPER Diagnostic Radiology Exam Date/Time 08/21/2018 09:46:47 EDT Exam CR Chest Portable Ordering Physician MALLORY STAPLES Accession Number [id number] CPT4 Codes 32538 () Reason For Exam edema Report PORTABLE [...] Date and Time: 08/21/2018 11:14 Normal [facility] CULTURE ANAEROBEon 9 CULTURE ANAEROBE CULTURE ANAEROBE --> Status: F No growth of anaerobes at 5 days. Normal [facility] Comment on above: Order Comment: or co llected Performed By: #### H EMDF, PT, BMP3M, PHOS3, MG3, CK3 #### [address] [address] #### VD25 #### [facility] [address] [place] [address] Glucose,Bedsideon 08-21-2018 Glucose mass conc 124 mg/dL High 70-100 [facility] Comment on above: Result Comment: Test performed by glucose meter. Results may be 10%-15% lower than serum/plasma values. (CLIA ID [id number]) Performed By: #### H EMDF, PT, BMP3M, PHOS3, MG3, CK3 #### [address] [place] #### VD25H #### [facility] [address] [place] [address] Glucose mass conc 135 mg/dL High 70-100 [facility] Comment on above: Result Comment: Test performed by glucose meter. Results may be 10%-15% lower than serum/plasma values. (CLIA ID [id number]) Performed By: #### H EMDF, PT, BMP3M, PHOS3, MG3, CK3 #### [address] #### VD25H #### [facility] [address] [place] [address] Glucose mass conc 131 mg/dL High 70-100 [facility] Comment on above: Result Comment: Test performed by glucose meter. Results may be 10%-15% lower than serum/plasma values. (CLIA ID [id number]) Performed By: #### H EMDF, PT, BMP3M, PHOS3, MG3, CK3 #### [address] #### VD25H #### [facility] [address] [place] [address] Glucose mass conc 112 mg/dL High 70-100 [facility] Comment on above: Result Comment: Test performed by glucose meter. Results may be 10%-15% lower than serum/plasma values. (CLIA ID [id number]) Performed By: #### H EMDF, PT, BMP3M, PHOS3, MG3, CK3 #### [address] #### VD25H #### [facility] [address] [place] [address] Basic Metabolic Panelon 04-2 Anion gap molar conc 4 Normal [facility] Comment on above: Performed By: #### H EMDF, PT, BMP3M, PHOS3, MG3, CK3 #### [address] #### VD25H #### [facility] [address] [place] [address] Calcium mass conc 7.6 mg/dL Low 8.4-10.4 [facility] Comment on above: Performed By: #### H EMDF, PT, BMP3M, PHOS3, MG3, CK3 #### [place] [address] [facility] #### VD25H #### [facility] [address] [place] [address] CO2 molar conc 36 mmol/L High 22-30 [facility] Comment on above: Performed By: #### H EMDF, PT, BMP3M, PHOS3, MG3, CK3 #### [address] [facility] #### VD25H #### [facility] [address] [place] [address] Glucose mass conc 121 mg/dL High 70-100 [facility] Comment on above: Performed By: #### H EMDF, PT, BMP3M, PHOS3, MG3, CK3 #### [place] [address] [facility] #### VD25H #### [facility] [address] [place] [address] Urea nitrogen mass conc 9 mg/dL Normal 7-20 [facility] Comment on above: Performed By: #### H EMDF, PT, BMP3M, PHOS3, MG3, CK3 #### [address] [facility] #### VD25H #### [facility] [address] [place] [address] Creatinine mass conc 0.51 mg/dL Low 0.52-1.25 [facility] Comment on above: Performed By: #### H EMDF, PT, BMP3M, PHOS3, MG3, CK3 #### [place] [address] [facility] #### VD25H #### [facility] [address] [place] [address] GFR/1.73 sq M predicted among blacks MDRD vol rate/area (S/P/Bld) mL/min/{1.73_m2} Normal >60 [facility] Comment on above: Performed By: #### H EMDF, PT, BMP3M, PHOS3, MG3, CK3 #### [address] #### VD25H #### [facility] [address] [place] [address] GFR/1.73 sq M predicted among non-blacks MDRD vol rate/area (S/P/Bld) mL/min/{1.73_m2} Normal >60 [facility] Comment on above: Result Comment: Sour ce- MDRD equation with creatinine calibration to IDMS(NKDEP) eGFR not recommended for drug dose adjustment Performed By: #### H EMDF, PT, BMP3M, PHOS3, MG3, CK3 #### [address] #### VD25H #### [facility] [address] [place] [address] Chloride molar conc 100 mmol/L Normal 98-107 [facility] Comment on above: Performed By: #### H EMDF, PT, BMP3M, PHOS3, MG3, CK3 #### [address] #### VD25H #### [facility] [address] [place] [address] Potassium molar conc 3.3 mmol/L Low 3.5-5.1 [facility] Comment on above: Performed By: #### H EMDF, PT, BMP3M, PHOS3, MG3, CK3 #### [address] #### VD25H #### [facility] [address] [place] [address] Sodium molar conc 140 mmol/L Normal 135-145 [facility] Comment on above: Performed By: #### H EMDF, PT, BMP3M, PHOS3, MG3, CK3 #### [facility] [address] [place] [place] #### VD25H #### [facility] [address] [place] [address] Glucose,Bedsideon 08-20-2018 Glucose mass conc 121 mg/dL High 70-100 [facility] Comment on above: Result Comment: Test performed by glucose meter. Results may be 10%-15% lower than serum/plasma values. (CLIA ID [id number]) Performed By: #### H EMDF, PT, BMP3M, PHOS3, MG3, CK3 #### [address] #### VD25H #### [facility] [address] [place] [address] Glucose mass conc 127 mg/dL High 70-100 [facility] Comment on above: Result Comment: Test performed by glucose meter. Results may be 10%-15% lower than serum/plasma values. (CLIA ID [id number]) Performed By: #### H EMDF, PT, BMP3M, PHOS3, MG3, CK3 #### [address] #### VD25H #### [facility] [address] [place] [address] Hep A Abs, Totalon 9 Hep A Abs, Total Negative Normal Negative [facility] Comment on above: Result Comment: Perf ormed by [employer], [address] [place] [address] [email or web address] Moo Lay MD - Lab. Director Performed By: #### H EMDF, PT, BMP3M, PHOS3, MG3, CK3 #### [facility] [address] [place] #### VD25H #### [facility] [address] [place] [address] Basic Metabolic Panelon 04-2 Anion gap molar conc 1 Normal [facility] Comment on above: Performed By: #### H EMDF, PT, BMP3M, PHOS3, MG3, CK3 #### [place] [address] [address] [facility], [place] #### VD25H #### [facility] [address] [place] [address] Calcium mass conc 7.6 mg/dL Low 8.4-10.4 [facility] Comment on above: Performed By: #### H EMDF, PT, BMP3M, PHOS3, MG3, CK3 #### [place] [address] [address] [facility] #### VD25H #### [facility] [address] [place] [address] CO2 molar conc 33 mmol/L High 22-30 [facility] Comment on above: Performed By: #### H EMDF, PT, BMP3M, PHOS3, MG3, CK3 #### [place] [address] [address] [facility] #### VD25H #### [facility] [address] [place] [address] Glucose mass conc 139 mg/dL High 70-100 [facility] Comment on above: Performed By: #### H EMDF, PT, BMP3M, PHOS3, MG3, CK3 #### [place] [address] [address] [facility] #### VD25H #### [facility] [address] [place] [address] Urea nitrogen mass conc 10 mg/dL Normal 7-20 [facility] Comment on above: Performed By: #### H EMDF, PT, BMP3M, PHOS3, MG3, CK3 #### [address] [facility], [place] #### VD25H #### [facility] [address] [place] [address] Creatinine mass conc 0.57 mg/dL Normal 0.52-1.25 [facility] Comment on above: Performed By: #### H EMDF, PT, BMP3M, PHOS3, MG3, CK3 #### [address] [address] #### VD25H #### [facility] [address] [place] [address] GFR/1.73 sq M predicted among blacks MDRD vol rate/area (S/P/Bld) mL/min/{1.73_m2} Normal >60 [facility] Comment on above: Performed By: #### H EMDF, PT, BMP3M, PHOS3, MG3, CK3 #### [address] #### VD25H #### [facility] [address] [place] [address] GFR/1.73 sq M predicted among non-blacks MDRD vol rate/area (S/P/Bld) mL/min/{1.73_m2} Normal >60 [facility] Comment on above: Result Comment: Sour ce- MDRD equation with creatinine calibration to IDMS(NKDEP) eGFR not recommended for drug dose adjustment Performed By: #### H EMDF, PT, BMP3M, PHOS3, MG3, CK3 #### [address] #### VD25H #### [facility] [address] [place] [address] Potassium molar conc 3.4 mmol/L Low 3.5-5.1 [facility] Comment on above: Performed By: #### H EMDF, PT, BMP3M, PHOS3, MG3, CK3 #### [address] #### VD25H #### [facility] [address] [place] [address] Chloride molar conc 104 mmol/L Normal 98-107 [facility] Comment on above: Performed By: #### H EMDF, PT, BMP3M, PHOS3, MG3, CK3 #### [facility] [address] [place] [address] #### VD25H #### [facility] [facility] [address] [place] [address] Sodium molar conc 138 mmol/L Normal 135-145 [facility] Comment on above: Performed By: #### H EMDF, PT, BMP3M, PHOS3, MG3, CK3 #### [facility] [address] [place] [address] #### VD25H #### [facility] [facility] [address] [place] [address] CULT./ST. BACTERIAon 019 CULT./ST. BACTERIA STAIN GRAM [...] S Vancomycin(CHRISTI) = 1 S Normal [facility] Comment on above: Order Comment: or co llected Performed By: #### H EMDF, PT, BMP3M, PHOS3, MG3, CK3 #### [place] [address] #### VD25H #### [facility] [address] [place] [address] Basic Metabolic Panelon 04-2 Calcium mass conc 7.8 mg/dL Low 8.4-10.4 [facility] Comment on above: Performed By: #### H EMDF, PT, BMP3M, PHOS3, MG3, CK3 #### [facility] [place] [address] #### VD25H #### [facility] [address] [place] [address] Glucose mass conc 104 mg/dL High 70-100 [facility] Comment on above: Performed By: #### H EMDF, PT, BMP3M, PHOS3, MG3, CK3 #### [facility] [address] [place] [address] #### VD25H #### [facility] [facility] [address] [place] [address] Urea nitrogen mass conc 12 mg/dL Normal 7-20 [facility] Comment on above: Performed By: #### H EMDF, PT, BMP3M, PHOS3, MG3, CK3 #### [place] [address] #### VD25H #### [facility] [address] [place] [address] Anion gap molar conc 5 Normal [facility] Comment on above: Performed By: #### H EMDF, PT, BMP3M, PHOS3, MG3, CK3 #### [address] [address] #### VD25H #### [facility] [address] [place] [address] CO2 molar conc 26 mmol/L Normal 22-30 [facility] Comment on above: Performed By: #### H EMDF, PT, BMP3M, PHOS3, MG3, CK3 #### [address] #### VD25H #### [place] [address] [place] [address] Creatinine mass conc 0.61 mg/dL Normal 0.52-1.25 [facility] Comment on above: Performed By: #### H EMDF, PT, BMP3M, PHOS3, MG3, CK3 #### [address] #### VD25H #### [facility] [address] [place] [address] GFR/1.73 sq M predicted among blacks MDRD vol rate/area (S/P/Bld) mL/min/{1.73_m2} Normal >60 [facility] Comment on above: Performed By: #### H EMDF, PT, BMP3M, PHOS3, MG3, CK3 #### [address] [address] #### VD25H #### [place] [address] [place] [address] GFR/1.73 sq M predicted among non-blacks MDRD vol rate/area (S/P/Bld) mL/min/{1.73_m2} Normal >60 [facility] Comment on above: Result Comment: Sour ce- MDRD equation with creatinine calibration to IDMS(NKDEP) eGFR not recommended for drug dose adjustment Performed By: #### H EMDF, PT, BMP3M, PHOS3, MG3, CK3 #### [facility] [address] [facility] #### VD25H #### [facility] [address] [place] [address] Chloride molar conc 107 mmol/L Normal 98-107 [facility] Comment on above: Performed By: #### H EMDF, PT, BMP3M, PHOS3, MG3, CK3 #### [place] [address] [address] [facility] #### VD25H #### [facility] [address] [place] [address] Potassium molar conc 3.4 mmol/L Low 3.5-5.1 [facility] Comment on above: Performed By: #### H EMDF, PT, BMP3M, PHOS3, MG3, CK3 #### [place] [address] [address] [facility] #### VD25H #### [facility] [address] [place] [address] Sodium molar conc 138 mmol/L Normal 135-145 [facility] Comment on above: Performed By: #### H EMDF, PT, BMP3M, PHOS3, MG3, CK3 #### [facility] [address] [facility] #### VD25H #### [facility] [address] [place] [address] Glucose,Bedsideon 08-18-2018 Glucose mass conc 113 mg/dL High 70-100 [facility] Comment on above: Result Comment: Test performed by glucose meter. Results may be 10%-15% lower than serum/plasma values. (CLIA ID [id number]) Performed By: #### H EMDF, PT, BMP3M, PHOS3, MG3, CK3 #### [place] [address] [address] [facility] #### VD25H #### [facility] [address] [place] [address] Hemogram w/ Autodiffon 08-18 Erythrocyte distribution width Ratio (RBC) 14.4 % Normal 11.5-14.5 [facility] Comment on above: Performed By: #### H EMDF, PT, BMP3M, PHOS3, MG3, CK3 #### [address] #### VD25H #### [place] [address] [place] [address] Hematocrit Volume Fraction (Bld) 29.3 % Low 40.0-52.0 [facility] Comment on above: Performed By: #### H EMDF, PT, BMP3M, PHOS3, MG3, CK3 #### [address] #### VD25H #### [address] [place] [address] Hemoglobin mass conc (Bld) 9.8 g/dL Low 13.0-18.0 [facility] Comment on above: Performed By: #### H EMDF, PT, BMP3M, PHOS3, MG3, CK3 #### [address] #### VD25H #### [address] [place] [address] MCH Entitic mass (RBC) 28.0 pg Normal 26.0-34.0 [facility] Comment on above: Performed By: #### H EMDF, PT, BMP3M, PHOS3, MG3, CK3 #### [address] #### VD25H #### [address] [place] [address] MCHC mass conc (RBC) 33.4 % Normal 32.0-36.0 [facility] Comment on above: Performed By: #### H EMDF, PT, BMP3M, PHOS3, MG3, CK3 #### [address] #### VD25H #### [facility] [address] [place] [address] MCV Entitic volume (RBC) 84.1 fL Normal 80.0-98.0 [facility] Comment on above: Performed By: #### H EMDF, PT, BMP3M, PHOS3, MG3, CK3 #### [place] [address] [place] #### VD25H #### [facility] [address] [place] [address] Platelet mean volume Entitic volume (Bld) 7.9 fL Normal 7.4-10.4 [facility] Comment on above: Performed By: #### H EMDF, PT, BMP3M, PHOS3, MG3, CK3 #### [address] #### VD25H #### [facility] [address] [place] [address] Platelets #/vol (Bld) 301 10*3/uL Normal 140-440 [facility] Comment on above: Performed By: #### H EMDF, PT, BMP3M, PHOS3, MG3, CK3 #### [place] [address] [address] [place] #### VD25H #### [facility] [address] [place] [address] RBC #/vol (Bld) 3.49 10*6/uL Low 4.40-5.90 [facility] Comment on above: Performed By: #### H EMDF, PT, BMP3M, PHOS3, MG3, CK3 #### [address] #### VD25H #### [facility] [address] [place] [address] WBC #/vol (Bld) 8.3 10*3/uL Normal 3.6-10.7 [facility] Comment on above: Performed By: #### H EMDF, PT, BMP3M, PHOS3, MG3, CK3 #### [facility] [address] [place], [place] #### VD25H #### [facility] [address] [place] [address] Magnesiumon 08-18-2018 Magnesium mass conc 2.0 mg/dL Normal 1.6-2.3 [facility] Comment on above: Performed By: #### H EMDF, PT, BMP3M, PHOS3, MG3, CK3 #### [place] [address] [address] [place] #### VD25H #### [facility] [address] [place] [address] Manual Diffon 08-18-2018 Abs Neutrophile Cnt 5.1 10*3/uL Normal 2.2-8.2 [facility] Comment on above: Performed By: #### H EMDF, PT, BMP3M, PHOS3, MG3, CK3 #### [address] #### VD25H #### [facility] [address] [place] [address] Bands 3 % Normal 0-3 [facility] Comment on above: Performed By: #### H EMDF, PT, BMP3M, PHOS3, MG3, CK3 #### [address] #### VD25H #### [facility] [address] [place] [address] Eosinophils #/vol (Bld) 0.2 10*3/uL Normal 0.0-0.5 [facility] Comment on above: Performed By: #### H EMDF, PT, BMP3M, PHOS3, MG3, CK3 #### [address] #### VD25H #### [facility] [address] [place] [address] Eosinophils/100 WBC (Bld) 2 % Normal 1-6 [facility] Comment on above: Performed By: #### H EMDF, PT, BMP3M, PHOS3, MG3, CK3 #### [facility] [address] [place] #### VD25H #### [facility] [address] [place] [address] Lymphocytes #/vol (Bld) 2.1 10*3/uL Normal 1.1-4.5 [facility] Comment on above: Performed By: #### H EMDF, PT, BMP3M, PHOS3, MG3, CK3 #### [place] [address] [address] [place] #### VD25H #### [facility] [address] [place] [address] Lymphocytes/100 WBC (Bld) 25 % Normal 20-40 [facility] Comment on above: Performed By: #### H EMDF, PT, BMP3M, PHOS3, MG3, CK3 #### [address] #### VD25H #### [facility] [address] [place] [address] Metamyelocytes 1 % Abnormal <1 [facility] Comment on above: Performed By: #### H EMDF, PT, BMP3M, PHOS3, MG3, CK3 #### [address] #### VD25H #### [facility] [address] [place] [address] Monocytes #/vol (Bld) 0.6 10*3/uL Normal 0.2-1.1 [facility] Comment on above: Performed By: #### H EMDF, PT, BMP3M, PHOS3, MG3, CK3 #### [address] [place], [place] #### VD25H #### [facility] [address] [place] [address] Monocytes/100 WBC (Bld) 7 % Normal 2-10 [facility] Comment on above: Performed By: #### H EMDF, PT, BMP3M, PHOS3, MG3, CK3 #### [facility] [address] [place] #### VD25H #### [facility] [address] [place] [address] Myelocytes 1 % Abnormal <1 [facility] Comment on above: Performed By: #### H EMDF, PT, BMP3M, PHOS3, MG3, CK3 #### [facility] [address] [place] #### VD25H #### [facility] [address] [place] [address] Protein mass conc 2 % Abnormal <1 [facility] Comment on above: Performed By: #### H EMDF, PT, BMP3M, PHOS3, MG3, CK3 #### [address] #### VD25H #### [facility] [address] [place] [address] RBC morphology finding Nom (Bld) See Prev Normal [facility] Comment on above: Performed By: #### H EMDF, PT, BMP3M, PHOS3, MG3, CK3 #### [address] #### VD25H #### [facility] [address] [place] [address] Seg Neutrophils 59 % Normal 40-80 [facility] Comment on above: Performed By: #### H EMDF, PT, BMP3M, PHOS3, MG3, CK3 #### [place] [address] [address] [place] #### VD25H #### [facility] [address] [place] [address] Abs Baso Cnt 0.0 10*3/uL Normal 0.0-0.2 [facility] Comment on above: Performed By: #### H EMDF, PT, BMP3M, PHOS3, MG3, CK3 #### [place] [address] [address] [place] #### VD25H #### [facility] [address] [place] [address] Basophils/100 WBC (Bld) 0 % Normal 0-2 [facility] Comment on above: Performed By: #### H EMDF, PT, BMP3M, PHOS3, MG3, CK3 #### [place] [address] [address] [facility] #### VD25H #### [facility] [address] [place] [address] Cells counted 100 Normal [facility] Comment on above: Performed By: #### H EMDF, PT, BMP3M, PHOS3, MG3, CK3 #### [address] #### VD25H #### [place] [address] [place] [address] Phosphoruson 08-18-2018 Phosphate mass conc 4.6 mg/dL High 2.5-4.5 [facility] Comment on above: Performed By: #### H EMDF, PT, BMP3M, PHOS3, MG3, CK3 #### [address] #### VD25H #### [place] [address] [place] [address] Basic Metabolic Panelon 07-30 Calcium mass conc 7.7 mg/dL Low 8.4-10.4 [facility] Comment on above: Performed By: #### H EMDF, PT, BMP3M, PHOS3, MG3, CK3 #### [address] #### VD25H #### [facility] [address] [place] [address] Anion gap molar conc 7 Normal [facility] Comment on above: Performed By: #### H EMDF, PT, BMP3M, PHOS3, MG3, CK3 #### [place] [address] [place] #### VD25H #### [facility] [address] [place] [address] CO2 molar conc 25 mmol/L Normal 22-30 [facility] Comment on above: Performed By: #### H EMDF, PT, BMP3M, PHOS3, MG3, CK3 #### [address] [address] #### VD25H #### [facility] [address] [place] [address] Creatinine mass conc 0.59 mg/dL Normal 0.52-1.25 [facility] Comment on above: Performed By: #### H EMDF, PT, BMP3M, PHOS3, MG3, CK3 #### [address] #### VD25H #### [facility] [address] [place] [address] GFR/1.73 sq M predicted among blacks MDRD vol rate/area (S/P/Bld) mL/min/{1.73_m2} Normal >60 [facility] Comment on above: Performed By: #### H EMDF, PT, BMP3M, PHOS3, MG3, CK3 #### [address] #### VD25H #### [facility] [address] [place] [address] GFR/1.73 sq M predicted among non-blacks MDRD vol rate/area (S/P/Bld) mL/min/{1.73_m2} Normal >60 [facility] Comment on above: Result Comment: Sour ce- MDRD equation with creatinine calibration to IDMS(NKDEP) eGFR not recommended for drug dose adjustment Performed By: #### H EMDF, PT, BMP3M, PHOS3, MG3, CK3 #### [address] [address] #### VD25H #### [facility] [address] [place] [address] Glucose mass conc 116 mg/dL High 70-100 [facility] Comment on above: Performed By: #### H EMDF, PT, BMP3M, PHOS3, MG3, CK3 #### [facility] [address] [facility] #### VD25H #### [facility] [address] [place] [address] Urea nitrogen mass conc 12 mg/dL Normal 7-20 [facility] Comment on above: Performed By: #### H EMDF, PT, BMP3M, PHOS3, MG3, CK3 #### [place] [address] [address] [facility] #### VD25H #### [facility] [address] [place] [address] Potassium molar conc 3.2 mmol/L Low 3.5-5.1 [facility] Comment on above: Performed By: #### H EMDF, PT, BMP3M, PHOS3, MG3, CK3 #### [place] [address] [address] [facility] #### VD25H #### [facility] [address] [place] [address] Sodium molar conc 138 mmol/L Normal 135-145 [facility] Comment on above: Performed By: #### H EMDF, PT, BMP3M, PHOS3, MG3, CK3 #### [place] [address] [address] [facility] #### VD25H #### [facility] [address] [place] [address] Chloride molar conc 106 mmol/L Normal 98-107 [facility] Comment on above: Performed By: #### H EMDF, PT, BMP3M, PHOS3, MG3, CK3 #### [place] [address] [address] [facility] #### VD25H #### [facility] [address] [place] [address] CR Chest Portableon 08-18-19 19 CR Chest Portable Patient Name: KATHYA HOOPER Diagnostic Radiology Exam Date/Time 08/17/2018 17:54:46 EDT Exam CR Chest Portable Ordering Physician SALO DAVIS Accession Number [id number] CPT4 Codes 90260 () Reason For Exam line placement Report [...] Date and Time: 08/17/2018 6:05 Normal [facility] CR Chest Portable Patient Name: KATHYA HOOPER Diagnostic Radiology Exam Date/Time 08/17/2018 06:11:03 EDT Exam CR Chest Portable Ordering Physician ETIENNE VELÁSQUEZ TIMOTHY P Accession Number [id number] CPT4 Codes 65297 () Reason For Exam follow left pleural [...] Date and Time: 08/17/2018 7:16 Normal [facility] Ferritinon 08-17-2018 Ferritin mass conc 1100 ng/mL High 18-464 [facility] Comment on above: Performed By: #### H EMDF, PT, BMP3M, PHOS3, MG3, CK3 #### [facility] [address] [place], [place] #### VD25H #### [facility] [address] [place] [address] Folateon 08-17-2018 Folate 15.1 ng/mL Normal 2.8-20.0 [facility] Comment on above: Performed By: #### H EMDF, PT, BMP3M, PHOS3, MG3, CK3 #### [facility] [address] [place] #### VD25H #### [facility] [address] [place] [address] Glucose,Bedsideon 08-17-2018 Glucose mass conc 133 mg/dL High 70-100 [facility] Comment on above: Result Comment: Test performed by glucose meter. Results may be 10%-15% lower than serum/plasma values. (CLIA ID [id number]) Performed By: #### H EMDF, PT, BMP3M, PHOS3, MG3, CK3 #### [facility] [address] [place] [place] #### VD25H #### [facility] [address] [place] [address] Hemoglobin A1Con 08-17-2018 Hemoglobin A1c/Hemoglobin.total mass fraction (Bld) 117 mg/dL Normal [facility] Comment on above: Performed By: #### H EMDF, PT, BMP3M, PHOS3, MG3, CK3 #### [facility] [address] [place] [place] #### VD25H #### [place] [address] [place] [address] Hemoglobin A1c/Hemoglobin.total mass fraction (Bld) 5.7 % Normal 4.0-5.7 [facility] Comment on above: Result Comment: --Hg bA1C levels may not be accurate in patients who have renal disease, received recent blood transfusions, are anemic, or who have dyshemoglobinemia. Performed By: #### H EMDF, PT, BMP3M, PHOS3, MG3, CK3 #### [address] #### VD25H #### [address] [place] [address] Hemogram w/ Autodiffon 08-17 Erythrocyte distribution width Ratio (RBC) 14.3 % Normal 11.5-14.5 [facility] Comment on above: Performed By: #### H EMDF, PT, BMP3M, PHOS3, MG3, CK3 #### [address] #### VD25H #### [address] [place] [address] Hematocrit Volume Fraction (Bld) 29.1 % Low 40.0-52.0 [facility] Comment on above: Performed By: #### H EMDF, PT, BMP3M, PHOS3, MG3, CK3 #### [address] #### VD25H #### [address] [place] [address] Hemoglobin mass conc (Bld) 9.8 g/dL Low 13.0-18.0 [facility] Comment on above: Performed By: #### H EMDF, PT, BMP3M, PHOS3, MG3, CK3 #### [address] #### VD25H #### [address] [place] [address] MCH Entitic mass (RBC) 28.4 pg Normal 26.0-34.0 [facility] Comment on above: Performed By: #### H EMDF, PT, BMP3M, PHOS3, MG3, CK3 #### [facility] [address] [place], [place] #### VD25H #### [facility] [address] [place] [address] MCHC mass conc (RBC) 33.5 % Normal 32.0-36.0 [facility] Comment on above: Performed By: #### H EMDF, PT, BMP3M, PHOS3, MG3, CK3 #### [address] #### VD25H #### [facility] [address] [place] [address] MCV Entitic volume (RBC) 84.7 fL Normal 80.0-98.0 [facility] Comment on above: Performed By: #### H EMDF, PT, BMP3M, PHOS3, MG3, CK3 #### [address] #### VD25H #### [facility] [address] [place] [address] Platelet mean volume Entitic volume (Bld) 8.1 fL Normal 7.4-10.4 [facility] Comment on above: Performed By: #### H EMDF, PT, BMP3M, PHOS3, MG3, CK3 #### [address] #### VD25H #### [facility] [address] [place] [address] Platelets #/vol (Bld) 281 10*3/uL Normal 140-440 [facility] Comment on above: Performed By: #### H EMDF, PT, BMP3M, PHOS3, MG3, CK3 #### [address] #### VD25H #### [facility] [address] [place] [address] RBC #/vol (Bld) 3.44 10*6/uL Low 4.40-5.90 [facility] Comment on above: Performed By: #### H EMDF, PT, BMP3M, PHOS3, MG3, CK3 #### [facility] [address] [place], [place] #### VD25H #### [facility] [address] [place] [address] WBC #/vol (Bld) 8.3 10*3/uL Normal 3.6-10.7 [facility] Comment on above: Performed By: #### H EMDF, PT, BMP3M, PHOS3, MG3, CK3 #### [facility] [address], [place] #### VD25H #### [facility] [address] [place] [address] Hep B Surface Abon 9 Hep B Surface Ab < 8.0 Normal [facility] Comment on above: Result Comment: Inte rpretation: <8.0 Non-Reactive 8.0-11.9 Equivocal >= 12.0 Ab Detected Performed By: #### H EMDF, PT, BMP3M, PHOS3, MG3, CK3 #### [facility] [address], [place] #### VD25H #### [facility] [address] [place] [address] Hep B Surface Agon 9 Hep B Surface Ag NOT DETECTED Normal Not-Detected [facility] Comment on above: Performed By: #### H EMDF, PT, BMP3M, PHOS3, MG3, CK3 #### [facility] [address] [place], [place] #### VD25H #### [facility] [address] [place] [address] Hep C Antibodyon 08-17-2018 Hep C Antibody NOT DETECTED Normal Not-Detected [facility] Comment on above: Result Comment: Bharti ents with DETECTED Hepatitis C Ab results should have a new specimen submitted for supplemental testing with a Hepatitis C Quantitative RNA assay (viral load), if clinically indicated. Performed By: #### H EMDF, PT, BMP3M, PHOS3, MG3, CK3 #### [facility] [address], [place] #### VD25H #### [facility] [address] [place] [address] Hepatic Functionon ALP enzyme act/vol 116 U/L Normal 38-126 [facility] Comment on above: Performed By: #### H EMDF, PT, BMP3M, PHOS3, MG3, CK3 #### [place] [address] [place], [place] #### VD25H #### [facility] [address] [place] [address] ALT enzyme act/vol 370 U/L High 13-69 [facility] Comment on above: Performed By: #### H EMDF, PT, BMP3M, PHOS3, MG3, CK3 #### [place] [address] [place], [place] #### VD25H #### [facility] [address] [place] [address] AST enzyme act/vol 150 U/L High 15-46 [facility] Comment on above: Performed By: #### H EMDF, PT, BMP3M, PHOS3, MG3, CK3 #### [place] [address] [place] [place] #### VD25H #### [facility] [address] [place] [address] Bilirubin mass conc 0.7 mg/dL Normal 0.2-1.3 [facility] Comment on above: Performed By: #### H EMDF, PT, BMP3M, PHOS3, MG3, CK3 #### [place] [address] [place], [place] #### VD25H #### [facility] [address] [place] [address] Bilirubin.direct mass conc 0.0 mg/dL Normal 0.0-0.3 [facility] Comment on above: Performed By: #### H EMDF, PT, BMP3M, PHOS3, MG3, CK3 #### [place] [address] [place], [place] #### VD25H #### [facility] [address] [place] [address] Protein mass conc 5.4 g/dL Low 6.3-8.2 [facility] Comment on above: Performed By: #### H EMDF, PT, BMP3M, PHOS3, MG3, CK3 #### [place] [address] [place], [place] #### VD25H #### [facility] [address] [place] [address] Albumin mass conc 2.5 g/dL Low 3.5-5.0 [facility] Comment on above: Performed By: #### H EMDF, PT, BMP3M, PHOS3, MG3, CK3 #### [place] [address] [place], [place] #### VD25H #### [facility] [address] [place] [address] Iron AND TIBCon 08-17-2018 Saturation 14 % Low 15-50 [facility] Comment on above: Performed By: #### H EMDF, PT, BMP3M, PHOS3, MG3, CK3 #### [address] #### VD25H #### [facility] [address] [place] [address] Total Iron Binding Cap. 166 ug/dL Low 261-497 [facility] Comment on above: Performed By: #### H EMDF, PT, BMP3M, PHOS3, MG3, CK3 #### [place] [address] [place], [place] #### VD25H #### [facility] [address] [place] [address] Iron, Total 23 ug/dL Low 49-181 [facility] Comment on above: Performed By: #### H EMDF, PT, BMP3M, PHOS3, MG3, CK3 #### [address] #### VD25H #### [facility] [address] [place] [address] Magnesiumon 08-17-2018 Magnesium mass conc 2.0 mg/dL Normal 1.6-2.3 [facility] Comment on above: Performed By: #### H EMDF, PT, BMP3M, PHOS3, MG3, CK3 #### [address] #### VD25H #### [facility] [address] [place] [address] Manual Diffon 08-17-2018 Abs Baso Cnt 0.1 10*3/uL Normal 0.0-0.2 [facility] Comment on above: Performed By: #### H EMDF, PT, BMP3M, PHOS3, MG3, CK3 #### [address] #### VD25H #### [facility] [address] [place] Abs Neutrophile Cnt 5.6 10*3/uL Normal 2.2-8.2 [facility] Comment on above: Performed By: #### H EMDF, PT, BMP3M, PHOS3, MG3, CK3 #### [address] #### VD25H #### [facility] [address] [place] [address] Anisocytosis Ql (Bld) Slight Normal [facility] Comment on above: Performed By: #### H EMDF, PT, BMP3M, PHOS3, MG3, CK3 #### [address] #### VD25H #### [facility] [address] [place] [address] Bands 9 % High 0-3 [facility] Comment on above: Performed By: #### H EMDF, PT, BMP3M, PHOS3, MG3, CK3 #### [facility] [address] [place], [place] #### VD25H #### [facility] [address] [place] [address] Basophils/100 WBC (Bld) 1 % Normal 0-2 [facility] Comment on above: Performed By: #### H EMDF, PT, BMP3M, PHOS3, MG3, CK3 #### [facility] [address] [place], [place] #### VD25H #### [facility] [address] [place] [address] Eosinophils #/vol (Bld) 0.2 10*3/uL Normal 0.0-0.5 [facility] Comment on above: Performed By: #### H EMDF, PT, BMP3M, PHOS3, MG3, CK3 #### [place] [address] [place], [place] #### VD25H #### [facility] [address] [place] [address] Eosinophils/100 WBC (Bld) 3 % Normal 1-6 [facility] Comment on above: Performed By: #### H EMDF, PT, BMP3M, PHOS3, MG3, CK3 #### [facility] [address] [place], [place] #### VD25H #### [facility] [address] [place] [address] Lymphocytes #/vol (Bld) 1.5 10*3/uL Normal 1.1-4.5 [facility] Comment on above: Performed By: #### H EMDF, PT, BMP3M, PHOS3, MG3, CK3 #### [place] [address] [place], [place] #### VD25H #### [facility] [address] [place] [address] Lymphocytes/100 WBC (Bld) 18 % Low 20-40 [facility] Comment on above: Performed By: #### H EMDF, PT, BMP3M, PHOS3, MG3, CK3 #### [place] [address] [place], [place] #### VD25H #### [facility] [address] [place] [address] Monocytes #/vol (Bld) 0.4 10*3/uL Normal 0.2-1.1 [facility] Comment on above: Performed By: #### H EMDF, PT, BMP3M, PHOS3, MG3, CK3 #### [place] [address] [place], [place] #### VD25H #### [facility] [address] [place] [address] Monocytes/100 WBC (Bld) 5 % Normal 2-10 [facility] Comment on above: Performed By: #### H EMDF, PT, BMP3M, PHOS3, MG3, CK3 #### [address] #### VD25H #### [facility] [address] [place] [address] Myelocytes 5 % Abnormal <1 [facility] Comment on above: Performed By: #### H EMDF, PT, BMP3M, PHOS3, MG3, CK3 #### [address] #### VD25H #### [facility] [address] [place] [address] Polychromasia Slight Normal [facility] Comment on above: Performed By: #### H EMDF, PT, BMP3M, PHOS3, MG3, CK3 #### [address] #### VD25H #### [facility] [address] [place] [address] RBC morphology finding Nom (Bld) ABNORMAL Normal [facility] Comment on above: Performed By: #### H EMDF, PT, BMP3M, PHOS3, MG3, CK3 #### [place] [address] [place] #### VD25H #### [facility] [address] [place] [address] Seg Neutrophils 59 % Normal 40-80 [facility] Comment on above: Performed By: #### H EMDF, PT, BMP3M, PHOS3, MG3, CK3 #### [facility] [address] [place] #### VD25H #### [facility] [address] [place] [address] Toxic Granulation Slight Normal [facility] Comment on above: Performed By: #### H EMDF, PT, BMP3M, PHOS3, MG3, CK3 #### [place] [address] [place] #### VD25H #### [facility] [address] [place] [address] Cells counted 100 Normal [facility] Comment on above: Performed By: #### H EMDF, PT, BMP3M, PHOS3, MG3, CK3 #### [place] [address] [place], [place] #### VD25H #### [facility] [address] [place] [address] Phosphoruson 08-17-2018 Phosphate mass conc 3.9 mg/dL Normal 2.5-4.5 [facility] Comment on above: Performed By: #### H EMDF, PT, BMP3M, PHOS3, MG3, CK3 #### [facility] [address] [place] #### VD25H #### [facility] [address] [place] [address] Triglycerideon 08-17-2018 Triglyceride mass conc 104 mg/dL Normal <150 [facility] Comment on above: Performed By: #### H EMDF, PT, BMP3M, PHOS3, MG3, CK3 #### [place] [address] [place] #### VD25H #### [facility] [address] [place] [address] Vitamin B12on 08-17-2018 Cobalamin (Vitamin B12) mass conc 615 pg/mL Normal 239-931 [facility] Comment on above: Performed By: #### H EMDF, PT, BMP3M, PHOS3, MG3, CK3 #### [facility] [address] [place] [address] #### VD25H #### [facility] [address] [place] [address] Albumin, Serumon 08-16-2018 Albumin mass conc 2.6 g/dL Low 3.5-5.0 [facility] Comment on above: Performed By: #### H EMDF, PT, BMP3M, PHOS3, MG3, CK3 #### [facility] [address] [place] [address] #### VD25H #### [facility] [address] [place] [address] CR Abdomen APon 08-16-2018 CR Abdomen AP Patient Name: KATHYA HOOPER Diagnostic Radiology Exam Date/Time 08/16/2018 10:17:24 EDT Exam CR Abdomen AP Ordering Physician [id number] JOEY VILLAGRAN Accession Number [id number] CPT4 Codes 26887 () Reason For Exam dobhoff placement Report [...] Date and Time: 08/16/2018 12:33 Normal [facility] CR Chest Portableon 08-17-19 19 CR Chest Portable Patient Name: KATHYA HOOPER Diagnostic Radiology Exam Date/Time 08/16/2018 10:17:24 EDT Exam CR Chest Portable Ordering Physician [id number] ANNA Accession Number [id number] CPT4 Codes 20991 () Reason For Exam dyspnea Report PORTABLE [...] Date and Time: 08/16/2018 12:31 Normal [facility] Comp Panel with Mg Reflexon 08-16-2018 Calcium mass conc 7.8 mg/dL Low 8.4-10.4 [facility] Comment on above: Performed By: #### H EMDF, PT, BMP3M, PHOS3, MG3, CK3 #### [facility] [facility] [address] [place] [address] #### VD25H #### [facility] [address] [place] [address] Glucose mass conc 114 mg/dL High 70-100 [facility] [place] [facility] Comment on above: Performed By: #### H EMDF, PT, BMP3M, PHOS3, MG3, CK3 #### [facility] [address] [place] #### VD25H #### [facility] [address] [place] [address] ALP enzyme act/vol 114 U/L Normal 38-126 [facility] Comment on above: Performed By: #### H EMDF, PT, BMP3M, PHOS3, MG3, CK3 #### [facility] [address] [place] #### VD25H #### [facility] [address] [place] [address] ALT enzyme act/vol 539 U/L High 13-69 [facility] Comment on above: Performed By: #### H EMDF, PT, BMP3M, PHOS3, MG3, CK3 #### [place] [address] [place], [place] #### VD25H #### [facility] [address] [place] [address] Anion gap molar conc 4 Normal [facility] Comment on above: Performed By: #### H EMDF, PT, BMP3M, PHOS3, MG3, CK3 #### [facility] [address] [place] #### VD25H #### [facility] [address] [place] [address] AST enzyme act/vol 460 U/L High 15-46 [facility] Comment on above: Performed By: #### H EMDF, PT, BMP3M, PHOS3, MG3, CK3 #### [facility] [address] [facility] #### VD25H #### [facility] [address] [place] [address] Bilirubin mass conc 0.7 mg/dL Normal 0.2-1.3 [facility] Comment on above: Performed By: #### H EMDF, PT, BMP3M, PHOS3, MG3, CK3 #### [place] [address] [place], [place] #### VD25H #### [facility] [address] [place] [address] CO2 molar conc 25 mmol/L Normal 22-30 [facility] Comment on above: Performed By: #### H EMDF, PT, BMP3M, PHOS3, MG3, CK3 #### [place] [address] [place], [place] #### VD25H #### [facility] [address] [place] [address] Creatinine mass conc 0.71 mg/dL Normal 0.52-1.25 [facility] Comment on above: Performed By: #### H EMDF, PT, BMP3M, PHOS3, MG3, CK3 #### [address] #### VD25H #### [facility] [address] [place] [address] GFR/1.73 sq M predicted among blacks MDRD vol rate/area (S/P/Bld) mL/min/{1.73_m2} Normal >60 [facility] Comment on above: Performed By: #### H EMDF, PT, BMP3M, PHOS3, MG3, CK3 #### [address] #### VD25H #### [facility] [address] [place] [address] GFR/1.73 sq M predicted among non-blacks MDRD vol rate/area (S/P/Bld) mL/min/{1.73_m2} Normal >60 [facility] Comment on above: Result Comment: Sour ce- MDRD equation with creatinine calibration to IDMS(NKDEP) eGFR not recommended for drug dose adjustment Performed By: #### H EMDF, PT, BMP3M, PHOS3, MG3, CK3 #### [place] [address] [place] #### VD25H #### [facility] [address] [place] [address] Protein mass conc 5.1 g/dL Low 6.3-8.2 [facility] Comment on above: Performed By: #### H EMDF, PT, BMP3M, PHOS3, MG3, CK3 #### [facility] [address] [place] #### VD25H #### [facility] [address] [place] [address] Urea nitrogen mass conc 22 mg/dL High 7-20 [facility] Comment on above: Performed By: #### H EMDF, PT, BMP3M, PHOS3, MG3, CK3 #### [place] [address] [place] #### VD25H #### [facility] [address] [place] [address] Chloride molar conc 102 mmol/L Normal 98-107 [facility] Comment on above: Performed By: #### H EMDF, PT, BMP3M, PHOS3, MG3, CK3 #### [place] [address] [place] #### VD25H #### [facility] [address] [place] [address] Potassium molar conc 3.1 mmol/L Low 3.5-5.1 [facility] Comment on above: Performed By: #### H EMDF, PT, BMP3M, PHOS3, MG3, CK3 #### [facility] [address] [place] #### VD25H #### [facility] [address] [place] [address] Sodium molar conc 131 mmol/L Low 135-145 [facility] Comment on above: Performed By: #### H EMDF, PT, BMP3M, PHOS3, MG3, CK3 #### [address] [place] #### VD25H #### [facility] [address] [place] [address] Albumin mass conc 2.4 g/dL Low 3.5-5.0 [facility] Comment on above: Performed By: #### H EMDF, PT, BMP3M, PHOS3, MG3, CK3 #### [facility] [address] [place] [address] #### VD25H #### [facility] [address] [place] [address] Glucose,Bedsideon 08-16-2018 Glucose mass conc 100 mg/dL Normal 70-100 [facility] Comment on above: Result Comment: Test performed by glucose meter. Results may be 10%-15% lower than serum/plasma values. (CLIA ID [id number]) Performed By: #### H EMDF, PT, BMP3M, PHOS3, MG3, CK3 #### [facility] [address] [place] [phone] #### VD25H #### [facility] [address] [place] [address] Glucose mass conc 98 mg/dL Normal 70-100 [facility] Comment on above: Result Comment: Test performed by glucose meter. Results may be 10%-15% lower than serum/plasma values. (CLIA ID [id number]) Performed By: #### H EMDF, PT, BMP3M, PHOS3, MG3, CK3 #### [facility] [address] [place] [phone] #### VD25H #### [facility] [address] [place] [address] Glucose mass conc 110 mg/dL High 70-100 [facility] Comment on above: Result Comment: Test performed by glucose meter. Results may be 10%-15% lower than serum/plasma values. (CLIA ID [id number]) Performed By: #### H EMDF, PT, BMP3M, PHOS3, MG3, CK3 #### [facility] [address] [place] [phone] #### VD25H #### [facility] [address] [place] [address] Glucose mass conc 113 mg/dL High 70-100 [facility] Comment on above: Result Comment: Test performed by glucose meter. Results may be 10%-15% lower than serum/plasma values. (CLIA ID [id number]) Performed By: #### H EMDF, PT, BMP3M, PHOS3, MG3, CK3 #### [address] #### VD25H #### [facility] [address] [place] [address] Glucose mass conc 126 mg/dL High 70-100 [facility] Comment on above: Result Comment: Test performed by glucose meter. Results may be 10%-15% lower than serum/plasma values. (CLIA ID [id number]) Performed By: #### H EMDF, PT, BMP3M, PHOS3, MG3, CK3 #### [address] #### VD25H #### [place] [address] [place] [address] Hemogram w/ Autodiffon 08-16 Abs Baso Cnt 0.0 10*3/uL Normal 0.0-0.2 [facility] Comment on above: Performed By: #### H EMDF, PT, BMP3M, PHOS3, MG3, CK3 #### [address] #### VD25H #### [facility] [address] [place] [address] Abs Neutrophile Cnt 7.7 10*3/uL High 1.8-7.0 [facility] Comment on above: Performed By: #### H EMDF, PT, BMP3M, PHOS3, MG3, CK3 #### [address] #### VD25H #### [facility] [address] [place] [address] Basophils/100 WBC (Bld) 0.5 % Normal 0.0-2.0 [facility] Comment on above: Performed By: #### H EMDF, PT, BMP3M, PHOS3, MG3, CK3 #### [place] [address] [place], [place] #### VD25H #### [facility] [address] [place] [address] Eosinophils #/vol (Bld) 0.1 10*3/uL Normal 0.0-0.5 [facility] Comment on above: Performed By: #### H EMDF, PT, BMP3M, PHOS3, MG3, CK3 #### [address] #### VD25H #### [facility] [address] [place] [address] Eosinophils/100 WBC (Bld) 1.5 % Normal 1.0-6.0 [facility] Comment on above: Performed By: #### H EMDF, PT, BMP3M, PHOS3, MG3, CK3 #### [address] #### VD25H #### [facility] [address] [place] [address] Erythrocyte distribution width Ratio (RBC) 14.4 % Normal 11.5-14.5 [facility] Comment on above: Performed By: #### H EMDF, PT, BMP3M, PHOS3, MG3, CK3 #### [address] #### VD25H #### [facility] [address] [place] [address] Granulocytes/100 WBC (Bld) 79.7 % Normal 40.0-80.0 [facility] Comment on above: Performed By: #### H EMDF, PT, BMP3M, PHOS3, MG3, CK3 #### [address] #### VD25H #### [facility] [address] [place] [address] Hematocrit Volume Fraction (Bld) 27.1 % Low 40.0-52.0 [facility] Comment on above: Performed By: #### H EMDF, PT, BMP3M, PHOS3, MG3, CK3 #### [facility] [address] [place], [place] #### VD25H #### [facility] [address] [place] [address] Hemoglobin mass conc (Bld) 9.2 g/dL Low 13.0-18.0 [facility] Comment on above: Performed By: #### H EMDF, PT, BMP3M, PHOS3, MG3, CK3 #### [address] #### VD25H #### [facility] [address] [place] [address] Lymphocytes #/vol (Bld) 1.0 10*3/uL Normal 1.0-4.3 [facility] Comment on above: Performed By: #### H EMDF, PT, BMP3M, PHOS3, MG3, CK3 #### [address] #### VD25H #### [facility] [address] [place] [address] Lymphocytes/100 WBC (Bld) 10.0 % Low 20.0-40.0 [facility] Comment on above: Performed By: #### H EMDF, PT, BMP3M, PHOS3, MG3, CK3 #### [address] #### VD25H #### [facility] [address] [place] [address] MCH Entitic mass (RBC) 28.5 pg Normal 26.0-34.0 [facility] Comment on above: Performed By: #### H EMDF, PT, BMP3M, PHOS3, MG3, CK3 #### [address] #### VD25H #### [facility] [address] [place] [address] MCHC mass conc (RBC) 33.8 % Normal 32.0-36.0 [facility] Comment on above: Performed By: #### H EMDF, PT, BMP3M, PHOS3, MG3, CK3 #### [address] #### VD25H #### [facility] [address] [place] [address] MCV Entitic volume (RBC) 84.4 fL Normal 80.0-98.0 [facility] Comment on above: Performed By: #### H EMDF, PT, BMP3M, PHOS3, MG3, CK3 #### [address] #### VD25H #### [facility] [address] [place] [address] Monocytes #/vol (Bld) 0.8 10*3/uL Normal 0.0-0.8 [facility] Comment on above: Performed By: #### H EMDF, PT, BMP3M, PHOS3, MG3, CK3 #### [address] #### VD25H #### [facility] [address] [place] [address] Monocytes/100 WBC (Bld) 8.3 % Normal 2.0-10.0 [facility] Comment on above: Performed By: #### H EMDF, PT, BMP3M, PHOS3, MG3, CK3 #### [address] #### VD25H #### [facility] [address] [place] [address] Platelet mean volume Entitic volume (Bld) 8.4 fL Normal 7.4-10.4 [facility] Comment on above: Performed By: #### H EMDF, PT, BMP3M, PHOS3, MG3, CK3 #### [address] #### VD25H #### [facility] [address] [place] [address] Platelets #/vol (Bld) 245 10*3/uL Normal 140-440 [facility] Comment on above: Performed By: #### H EMDF, PT, BMP3M, PHOS3, MG3, CK3 #### [address] #### VD25H #### [facility] [address] [place] [address] RBC #/vol (Bld) 3.21 10*6/uL Low 4.40-5.90 [facility] Comment on above: Performed By: #### H EMDF, PT, BMP3M, PHOS3, MG3, CK3 #### [address] #### VD25H #### [place] [address] [place] [address] WBC #/vol (Bld) 9.7 10*3/uL Normal 3.6-10.7 [facility] Comment on above: Performed By: #### H EMDF, PT, BMP3M, PHOS3, MG3, CK3 #### [address] #### VD25H #### [place] [address] [place] [address] Magnesiumon 08-16-2018 Magnesium mass conc 2.1 mg/dL Normal 1.6-2.3 [facility] Comment on above: Performed By: #### H EMDF, PT, BMP3M, PHOS3, MG3, CK3 #### [address] #### VD25H #### [facility] [address] [place] [address] Phosphoruson 08-16-2018 Phosphate mass conc 4.4 mg/dL Normal 2.5-4.5 [facility] Comment on above: Performed By: #### H EMDF, PT, BMP3M, PHOS3, MG3, CK3 #### [address] [place], [place] #### VD25H #### [facility] [address] [place] [address] Potassiumon 08-16-2018 Potassium molar conc 3.5 mmol/L Normal 3.5-5.1 [facility] Comment on above: Performed By: #### H EMDF, PT, BMP3M, PHOS3, MG3, CK3 #### [address] [place], [place] #### VD25H #### [facility] [address] [place] [address] Procalcitoninon 08-16-2018 Protein mass conc 3.10 ng/mL Abnormal <0.10 [facility] Comment on above: Performed By: #### H EMDF, PT, BMP3M, PHOS3, MG3, CK3 #### [address] #### VD25H #### [facility] [address] [place] [address] Prothrombin Timeon 9 INR Coag RelTime (PPP) 1.1 Normal 0.9-1.1 [facility] Comment on above: Result Comment: Yefri [...] PT, BMP3M, PHOS3, MG3, CK3 #### [address] [place], [place] #### VD25H #### [facility] [address] [place] [address] Prothrombin time (PT) Coag time (PPP) 11.8 s Normal 9.0-12.0 [facility] Comment on above: Result Comment: . Performed By: #### H EMDF, PT, BMP3M, PHOS3, MG3, CK3 #### [facility] [address] [place] [address] #### VD25H #### [facility] [address] [place] [address] US Abdomen Limitedon 019 US Abdomen Limited Patient Name: KATHYA HOOPER Ultrasound Exam Date/Time 08/16/2018 19:12:00 EDT Exam US Abdomen Limited Ordering Physician [id number] ESPINOSA Accession Number [id number] CPT4 Codes 17197 () Reason For Exam elevated transaminases Report [...] Date and Time: 08/16/2018 7:26 Normal [facility] Glucose,Bedsideon 08-15-2018 Glucose mass conc 98 mg/dL Normal 70-100 [facility] Comment on above: Result Comment: Test performed by glucose meter. Results may be 10%-15% lower than serum/plasma values. (CLIA ID [id number]) Performed By: #### H EMDF, PT, BMP3M, PHOS3, MG3, CK3 #### [address] #### VD25H #### [facility] [address] [place] [address] Procalcitoninon 08-15-2018 Interpretation See Below Normal [facility] Comment on above: Result Comment: PCT <0.50 = Low risk of severe sepsis and/or septic shock. PCT >2.00 = High risk of severe sepsis and/or septic shock. Performed By: #### H EMDF, PT, BMP3M, PHOS3, MG3, CK3 #### [address] #### VD25H #### [address] [place] [address] CULTURE FUNGUSon 08-13-2018 CULTURE FUNGUS CULTURE FUNGUS --> Status: F No fungus isolated after 21 days. Normal [facility] Comment on above: Order Comment: Speci men Source Comment:Body Fluid Performed By: #### H EMDF, PT, BMP3M, PHOS3, MG3, CK3 #### [address] #### VD25H #### [place] [address] [place] [address] Hemogram w/ Autodiffon 08-01 Abs Baso Cnt 0.2 10*3/uL Normal 0.0-0.2 [facility] Comment on above: Performed By: #### H EMDF, PT, BMP3M, PHOS3, MG3, CK3 #### [address] #### VD25H #### [place] [address] [place], [place] Abs Neutrophile Cnt 14.3 10*3/uL High 1.8-7.0 [facility] Comment on above: Performed By: #### H EMDF, PT, BMP3M, PHOS3, MG3, CK3 #### [facility] [address] [place] #### VD25H #### [facility] [address] [place] [address] Basophils/100 WBC (Bld) 1.0 % Normal 0.0-2.0 [facility] Comment on above: Performed By: #### H EMDF, PT, BMP3M, PHOS3, MG3, CK3 #### [address] [place], [place] #### VD25H #### [facility] [address] [place] [address] Eosinophils #/vol (Bld) 0.4 10*3/uL Normal 0.0-0.5 [facility] Comment on above: Performed By: #### H EMDF, PT, BMP3M, PHOS3, MG3, CK3 #### [address] #### VD25H #### [facility] [address] [place] [address] Eosinophils/100 WBC (Bld) 2.3 % Normal 1.0-6.0 [facility] Comment on above: Performed By: #### H EMDF, PT, BMP3M, PHOS3, MG3, CK3 #### [address] #### VD25H #### [facility] [address] [place] [address] Erythrocyte distribution width Ratio (RBC) 13.7 % Normal 11.5-14.5 [facility] Comment on above: Performed By: #### H EMDF, PT, BMP3M, PHOS3, MG3, CK3 #### [address] #### VD25H #### [facility] [address] [place] [address] Granulocytes/100 WBC (Bld) 82.1 % High 40.0-80.0 [facility] Comment on above: Performed By: #### H EMDF, PT, BMP3M, PHOS3, MG3, CK3 #### [address] #### VD25H #### [facility] [address] [place] [address] Hematocrit Volume Fraction (Bld) 31.2 % Low 40.0-52.0 [facility] Comment on above: Performed By: #### H EMDF, PT, BMP3M, PHOS3, MG3, CK3 #### [address] #### VD25H #### [facility] [address] [place] [address] Hemoglobin mass conc (Bld) 10.5 g/dL Low 13.0-18.0 [facility] Comment on above: Performed By: #### H EMDF, PT, BMP3M, PHOS3, MG3, CK3 #### [address] #### VD25H #### [facility] [address] [place] [address] Lymphocytes #/vol (Bld) 1.6 10*3/uL Normal 1.0-4.3 [facility] Comment on above: Performed By: #### H EMDF, PT, BMP3M, PHOS3, MG3, CK3 #### [address] #### VD25H #### [facility] [address] [place] [address] Lymphocytes/100 WBC (Bld) 9.1 % Low 20.0-40.0 [facility] Comment on above: Performed By: #### H EMDF, PT, BMP3M, PHOS3, MG3, CK3 #### [address] #### VD25H #### [facility] [address] [place] [address] MCH Entitic mass (RBC) 28.9 pg Normal 26.0-34.0 [facility] Comment on above: Performed By: #### H EMDF, PT, BMP3M, PHOS3, MG3, CK3 #### [facility] [address] [place] #### VD25H #### [facility] [address] [place] [address] MCHC mass conc (RBC) 33.7 % Normal 32.0-36.0 [facility] Comment on above: Performed By: #### H EMDF, PT, BMP3M, PHOS3, MG3, CK3 #### [address] #### VD25H #### [facility] [address] [place] [address] MCV Entitic volume (RBC) 85.5 fL Normal 80.0-98.0 [facility] Comment on above: Performed By: #### H EMDF, PT, BMP3M, PHOS3, MG3, CK3 #### [address] #### VD25H #### [facility] [address] [place] [address] Monocytes #/vol (Bld) 1.0 10*3/uL High 0.0-0.8 [facility] Comment on above: Performed By: #### H EMDF, PT, BMP3M, PHOS3, MG3, CK3 #### [address] #### VD25H #### [facility] [address] [place] [address] Monocytes/100 WBC (Bld) 5.5 % Normal 2.0-10.0 [facility] Comment on above: Performed By: #### H EMDF, PT, BMP3M, PHOS3, MG3, CK3 #### [address] #### VD25H #### [facility] [address] [place] [address] Platelet mean volume Entitic volume (Bld) 8.0 fL Normal 7.4-10.4 [facility] Comment on above: Performed By: #### H EMDF, PT, BMP3M, PHOS3, MG3, CK3 #### [address] #### VD25H #### [facility] [address] [place] [address] Platelets #/vol (Bld) 425 10*3/uL Normal 140-440 [facility] Comment on above: Performed By: #### H EMDF, PT, BMP3M, PHOS3, MG3, CK3 #### [address] #### VD25H #### [facility] [address] [place] [address] RBC #/vol (Bld) 3.65 10*6/uL Low 4.40-5.90 [facility] Comment on above: Performed By: #### H EMDF, PT, BMP3M, PHOS3, MG3, CK3 #### [address] #### VD25H #### [facility] [address] [place] [address] WBC #/vol (Bld) 17.4 10*3/uL High 3.6-10.7 [facility] Comment on above: Performed By: #### H EMDF, PT, BMP3M, PHOS3, MG3, CK3 #### [address] #### VD25H #### [facility] [address] [place] [address] Basic Metabolic Panelon 04-0 Calcium mass conc 8.3 mg/dL Low 8.4-10.4 [facility] Comment on above: Performed By: #### H EMDF, PT, BMP3M, PHOS3, MG3, CK3 #### [address] [place] [address] #### VD25H #### [facility] [address] [place] [address] Glucose mass conc 114 mg/dL High 70-100 [facility] Comment on above: Performed By: #### H EMDF, PT, BMP3M, PHOS3, MG3, CK3 #### [place] [address] [place] [address] #### VD25H #### [facility] [address] [place] [address] Anion gap molar conc 10 Normal [facility] Comment on above: Performed By: #### H EMDF, PT, BMP3M, PHOS3, MG3, CK3 #### [address] [place] [address] #### VD25H #### [facility] [address] [place] [address] CO2 molar conc 34 mmol/L High 22-30 [facility] Comment on above: Performed By: #### H EMDF, PT, BMP3M, PHOS3, MG3, CK3 #### [address] #### VD25H #### [facility] [address] [place] [address] Creatinine mass conc 0.52 mg/dL Normal 0.52-1.25 [facility] Comment on above: Performed By: #### H EMDF, PT, BMP3M, PHOS3, MG3, CK3 #### [address] [place] [address] #### VD25H #### [facility] [address] [place] [address] GFR/1.73 sq M predicted among blacks MDRD vol rate/area (S/P/Bld) mL/min/{1.73_m2} Normal >60 [facility] Comment on above: Performed By: #### H EMDF, PT, BMP3M, PHOS3, MG3, CK3 #### [place] [address] [place] #### VD25H #### [facility] [address] [place] [address] GFR/1.73 sq M predicted among non-blacks MDRD vol rate/area (S/P/Bld) mL/min/{1.73_m2} Normal >60 [facility] Comment on above: Result Comment: Sour ce- MDRD equation with creatinine calibration to IDMS(NKDEP) eGFR not recommended for drug dose adjustment Performed By: #### H EMDF, PT, BMP3M, PHOS3, MG3, CK3 #### [place] [address] [facility] #### VD25H #### [facility] [address] [place] [address] Urea nitrogen mass conc 23 mg/dL High 7-20 [facility] Comment on above: Performed By: #### H EMDF, PT, BMP3M, PHOS3, MG3, CK3 #### [place] [address] [facility] #### VD25H #### [facility] [address] [place] [address] Chloride molar conc 95 mmol/L Low 98-107 [facility] Comment on above: Performed By: #### H EMDF, PT, BMP3M, PHOS3, MG3, CK3 #### [place] [address] [facility] #### VD25H #### [facility] [address] [place] [address] Potassium molar conc 3.7 mmol/L Normal 3.5-5.1 [facility] Comment on above: Performed By: #### H EMDF, PT, BMP3M, PHOS3, MG3, CK3 #### [facility] [address] [facility] #### VD25H #### [facility] [address] [place] [address] Sodium molar conc 139 mmol/L Normal 135-145 [facility] Comment on above: Performed By: #### H EMDF, PT, BMP3M, PHOS3, MG3, CK3 #### [facility] [address] [place] #### VD25H #### [facility] [address] [place] [address] Hemogram w/ Autodiffon 07-31 Abs Baso Cnt 0.2 10*3/uL Normal 0.0-0.2 [facility] Comment on above: Performed By: #### H EMDF, PT, BMP3M, PHOS3, MG3, CK3 #### [address] #### VD25H #### [facility] [address] [place] [address] Abs Neutrophile Cnt 13.4 10*3/uL High 1.8-7.0 [facility] Comment on above: Performed By: #### H EMDF, PT, BMP3M, PHOS3, MG3, CK3 #### [address] #### VD25H #### [facility] [address] [place] [address] Basophils/100 WBC (Bld) 1.0 % Normal 0.0-2.0 [facility] Comment on above: Performed By: #### H EMDF, PT, BMP3M, PHOS3, MG3, CK3 #### [address] #### VD25H #### [facility] [address] [place] [address] Eosinophils #/vol (Bld) 0.5 10*3/uL Normal 0.0-0.5 [facility] Comment on above: Performed By: #### H EMDF, PT, BMP3M, PHOS3, MG3, CK3 #### [address] #### VD25H #### [facility] [address] [place] [address] Eosinophils/100 WBC (Bld) 3.1 % Normal 1.0-6.0 [facility] Comment on above: Performed By: #### H EMDF, PT, BMP3M, PHOS3, MG3, CK3 #### [facility] [address] [place] #### VD25H #### [facility] [address] [place] [address] Erythrocyte distribution width Ratio (RBC) 14.0 % Normal 11.5-14.5 [facility] Comment on above: Performed By: #### H EMDF, PT, BMP3M, PHOS3, MG3, CK3 #### [address] #### VD25H #### [facility] [address] [place] [address] Granulocytes/100 WBC (Bld) 80.6 % High 40.0-80.0 [facility] Comment on above: Performed By: #### H EMDF, PT, BMP3M, PHOS3, MG3, CK3 #### [address] #### VD25H #### [facility] [address] [place] [address] Hematocrit Volume Fraction (Bld) 32.3 % Low 40.0-52.0 [facility] Comment on above: Performed By: #### H EMDF, PT, BMP3M, PHOS3, MG3, CK3 #### [address] [place], [place] #### VD25H #### [facility] [address] [place] [address] Hemoglobin mass conc (Bld) 10.8 g/dL Low 13.0-18.0 [facility] Comment on above: Performed By: #### H EMDF, PT, BMP3M, PHOS3, MG3, CK3 #### [address] #### VD25H #### [facility] [address] [place] [address] Lymphocytes #/vol (Bld) 1.6 10*3/uL Normal 1.0-4.3 [facility] Comment on above: Performed By: #### H EMDF, PT, BMP3M, PHOS3, MG3, CK3 #### [place] [address] [place] #### VD25H #### [facility] [address] [place] [address] Lymphocytes/100 WBC (Bld) 9.8 % Low 20.0-40.0 [facility] Comment on above: Performed By: #### H EMDF, PT, BMP3M, PHOS3, MG3, CK3 #### [address] #### VD25H #### [place] [address] [place] [address] MCH Entitic mass (RBC) 28.9 pg Normal 26.0-34.0 [facility] Comment on above: Performed By: #### H EMDF, PT, BMP3M, PHOS3, MG3, CK3 #### [address] #### VD25H #### [facility] [address] [place] [address] MCHC mass conc (RBC) 33.6 % Normal 32.0-36.0 [facility] Comment on above: Performed By: #### H EMDF, PT, BMP3M, PHOS3, MG3, CK3 #### [address] #### VD25H #### [facility] [address] [place] [address] MCV Entitic volume (RBC) 86.1 fL Normal 80.0-98.0 [facility] Comment on above: Performed By: #### H EMDF, PT, BMP3M, PHOS3, MG3, CK3 #### [address] #### VD25H #### [facility] [address] [place] [address] Monocytes #/vol (Bld) 0.9 10*3/uL High 0.0-0.8 [facility] Comment on above: Performed By: #### H EMDF, PT, BMP3M, PHOS3, MG3, CK3 #### [address] #### VD25H #### [facility] [address] [place] [address] Monocytes/100 WBC (Bld) 5.5 % Normal 2.0-10.0 [facility] Comment on above: Performed By: #### H EMDF, PT, BMP3M, PHOS3, MG3, CK3 #### [address] #### VD25H #### [place] [address] [place] [address] Platelet mean volume Entitic volume (Bld) 8.2 fL Normal 7.4-10.4 [facility] Comment on above: Performed By: #### H EMDF, PT, BMP3M, PHOS3, MG3, CK3 #### [address] #### VD25H #### [place] [address] [place] [address] Platelets #/vol (Bld) 475 10*3/uL High 140-440 [facility] Comment on above: Performed By: #### H EMDF, PT, BMP3M, PHOS3, MG3, CK3 #### [address] #### VD25H #### [place] [address] [place] [address] RBC #/vol (Bld) 3.75 10*6/uL Low 4.40-5.90 [facility] Comment on above: Performed By: #### H EMDF, PT, BMP3M, PHOS3, MG3, CK3 #### [address] #### VD25H #### [facility] [address] [place] [address] WBC #/vol (Bld) 16.6 10*3/uL High 3.6-10.7 [facility] Comment on above: Performed By: #### H EMDF, PT, BMP3M, PHOS3, MG3, CK3 #### [address] #### VD25H #### [facility] [address] [place] [address] Magnesiumon 07-31-2018 Magnesium mass conc 2.4 mg/dL High 1.6-2.3 [facility] Comment on above: Performed By: #### H EMDF, PT, BMP3M, PHOS3, MG3, CK3 #### [address] #### VD25H #### [facility] [address] [place] [address] Phosphoruson 07-31-2018 Phosphate mass conc 4.5 mg/dL Normal 2.5-4.5 [facility] Comment on above: Performed By: #### H EMDF, PT, BMP3M, PHOS3, MG3, CK3 #### [address] #### VD25H #### [facility] [address] [place] [address] Basic Metabolic Panelon 04-0 Calcium mass conc 8.6 mg/dL Normal 8.4-10.4 [facility] Comment on above: Performed By: #### H EMDF, PT, BMP3M, PHOS3, MG3, CK3 #### [address] #### VD25H #### [facility] [address] [place] [address] Anion gap molar conc 8 Normal [facility] Comment on above: Performed By: #### H EMDF, PT, BMP3M, PHOS3, MG3, CK3 #### [address] #### VD25H #### [facility] [address] [place] [address] CO2 molar conc 34 mmol/L High 22-30 [facility] Comment on above: Performed By: #### H EMDF, PT, BMP3M, PHOS3, MG3, CK3 #### [address] #### VD25H #### [facility] [address] [place] [address] Creatinine mass conc 0.56 mg/dL Normal 0.52-1.25 [facility] Comment on above: Performed By: #### H EMDF, PT, BMP3M, PHOS3, MG3, CK3 #### [address] #### VD25H #### [facility] [address] [place] [address] GFR/1.73 sq M predicted among blacks MDRD vol rate/area (S/P/Bld) mL/min/{1.73_m2} Normal >60 [facility] Comment on above: Performed By: #### H EMDF, PT, BMP3M, PHOS3, MG3, CK3 #### [address] #### VD25H #### [address] [place] [address] GFR/1.73 sq M predicted among non-blacks MDRD vol rate/area (S/P/Bld) mL/min/{1.73_m2} Normal >60 [facility] Comment on above: Result Comment: Sour ce- MDRD equation with creatinine calibration to IDMS(NKDEP) eGFR not recommended for drug dose adjustment Performed By: #### H EMDF, PT, BMP3M, PHOS3, MG3, CK3 #### [address] #### VD25H #### [facility] [address] [place] [address] Glucose mass conc 121 mg/dL High 70-100 [facility] Comment on above: Performed By: #### H EMDF, PT, BMP3M, PHOS3, MG3, CK3 #### [facility] [address] [facility] #### VD25H #### [facility] [address] [place] [address] Urea nitrogen mass conc 29 mg/dL High 7-20 [facility] Comment on above: Performed By: #### H EMDF, PT, BMP3M, PHOS3, MG3, CK3 #### [place] [address] [facility] #### VD25H #### [facility] [address] [place] [address] Chloride molar conc 99 mmol/L Normal 98-107 [facility] Comment on above: Performed By: #### H EMDF, PT, BMP3M, PHOS3, MG3, CK3 #### [place] [address] [facility] #### VD25H #### [facility] [address] [place] [address] Potassium molar conc 3.7 mmol/L Normal 3.5-5.1 [facility] Comment on above: Performed By: #### H EMDF, PT, BMP3M, PHOS3, MG3, CK3 #### [facility] [address] [facility] #### VD25H #### [facility] [address] [place] [address] Sodium molar conc 141 mmol/L Normal 135-145 [facility] Comment on above: Performed By: #### H EMDF, PT, BMP3M, PHOS3, MG3, CK3 #### [place] [address] [facility] #### VD25H #### [facility] [address] [place] [address] CR Abdomen APon 07-30-2018 CR Abdomen AP Patient Name: KATHYA HOOPER Diagnostic Radiology Exam Date/Time 07/30/2018 10:28:42 EDT Exam CR Abdomen AP Ordering Physician INDRA JACOBSON Accession Number [id number] CPT4 Codes 79085 () Reason For Exam abd distension Report [...] Date and Time: 07/30/2018 3:57 Normal [facility] CR Chest Portableon 07-31-19 19 CR Chest Portable Patient Name: KATHYA HOOPER Diagnostic Radiology Exam Date/Time 07/30/2018 12:28:13 EDT Exam CR Chest Portable Ordering Physician SALO DAVIS Accession Number [id number] CPT4 Codes 07391 () Reason For Exam line reposition Report [...] Date and Time: 07/30/2018 1:32 Normal [facility] CR Chest Portable Patient Name: KATHYA HOOPER Diagnostic Radiology Exam Date/Time 07/30/2018 06:40:08 EDT Exam CR Chest Portable Ordering Physician MARIA EUGENIA PEREZ Accession Number [id number] CPT4 Codes 06082 () Reason For Exam ETT placement Report [...] Transcribed Date and Time: 07/30/2018 10:26 Normal [facility] Glucose,Bedsideon 07-30-2018 Glucose mass conc 125 mg/dL High 70-100 [facility] [employer] [facility] Comment on above: Result Comment: Test performed by glucose meter. Results may be 10%-15% lower than serum/plasma values. (CLIA ID [id number]) Performed By: #### H EMDF, PT, BMP3M, PHOS3, MG3, CK3 #### [address] #### VD25H #### [facility] [address] [place] [address] Glucose mass conc 117 mg/dL High 70-100 [facility] Comment on above: Result Comment: Test performed by glucose meter. Results may be 10%-15% lower than serum/plasma values. (CLIA ID [id number]) Performed By: #### H EMDF, PT, BMP3M, PHOS3, MG3, CK3 #### [address] #### VD25H #### [place] [address] [place] [address] Glucose mass conc 44 mg/dL Low 70-100 [facility] Comment on above: Result Comment: Repe ated Test; Test performed by glucose meter. Results may be 10%-15% lower than serum/plasma values. (CLIA ID [id number]) Performed By: #### H EMDF, PT, BMP3M, PHOS3, MG3, CK3 #### [address] #### VD25H #### [place] [address] [place] [address] Hemogram w/ Autodiffon 07-30 Abs Baso Cnt 0.2 10*3/uL Normal 0.0-0.2 [facility] Comment on above: Performed By: #### H EMDF, PT, BMP3M, PHOS3, MG3, CK3 #### [address] #### VD25H #### [facility] [address] [place] [address] Abs Neutrophile Cnt 13.2 10*3/uL High 1.8-7.0 [facility] Comment on above: Performed By: #### H EMDF, PT, BMP3M, PHOS3, MG3, CK3 #### [facility] [address] [place], [place] #### VD25H #### [facility] [address] [place] [address] Basophils/100 WBC (Bld) 0.9 % Normal 0.0-2.0 [facility] Comment on above: Performed By: #### H EMDF, PT, BMP3M, PHOS3, MG3, CK3 #### [facility] [address] [place], [place] #### VD25H #### [facility] [address] [place] [address] Eosinophils #/vol (Bld) 0.5 10*3/uL Normal 0.0-0.5 [facility] Comment on above: Performed By: #### H EMDF, PT, BMP3M, PHOS3, MG3, CK3 #### [address] #### VD25H #### [facility] [address] [place] [address] Eosinophils/100 WBC (Bld) 2.8 % Normal 1.0-6.0 [facility] Comment on above: Performed By: #### H EMDF, PT, BMP3M, PHOS3, MG3, CK3 #### [address] #### VD25H #### [facility] [address] [place] [address] Erythrocyte distribution width Ratio (RBC) 13.7 % Normal 11.5-14.5 [facility] Comment on above: Performed By: #### H EMDF, PT, BMP3M, PHOS3, MG3, CK3 #### [address] #### VD25H #### [facility] [address] [place] [address] Granulocytes/100 WBC (Bld) 76.6 % Normal 40.0-80.0 [facility] Comment on above: Performed By: #### H EMDF, PT, BMP3M, PHOS3, MG3, CK3 #### [facility] [address] [place], [place] #### VD25H #### [facility] [address] [place] [address] Hematocrit Volume Fraction (Bld) 31.4 % Low 40.0-52.0 [facility] Comment on above: Performed By: #### H EMDF, PT, BMP3M, PHOS3, MG3, CK3 #### [address] #### VD25H #### [facility] [address] [place] [address] Hemoglobin mass conc (Bld) 10.6 g/dL Low 13.0-18.0 [facility] Comment on above: Performed By: #### H EMDF, PT, BMP3M, PHOS3, MG3, CK3 #### [place] [address] [place], [place] #### VD25H #### [facility] [address] [place] [address] Lymphocytes #/vol (Bld) 2.2 10*3/uL Normal 1.0-4.3 [facility] Comment on above: Performed By: #### H EMDF, PT, BMP3M, PHOS3, MG3, CK3 #### [place] [address] [place] #### VD25H #### [facility] [address] [place] [address] Lymphocytes/100 WBC (Bld) 12.9 % Low 20.0-40.0 [facility] Comment on above: Performed By: #### H EMDF, PT, BMP3M, PHOS3, MG3, CK3 #### [address] #### VD25H #### [facility] [address] [place] [address] MCH Entitic mass (RBC) 29.2 pg Normal 26.0-34.0 [facility] Comment on above: Performed By: #### H EMDF, PT, BMP3M, PHOS3, MG3, CK3 #### [facility] [address] [place] #### VD25H #### [facility] [address] [place] [address] MCHC mass conc (RBC) 33.8 % Normal 32.0-36.0 [facility] Comment on above: Performed By: #### H EMDF, PT, BMP3M, PHOS3, MG3, CK3 #### [address] #### VD25H #### [facility] [address] [place] [address] MCV Entitic volume (RBC) 86.4 fL Normal 80.0-98.0 [facility] Comment on above: Performed By: #### H EMDF, PT, BMP3M, PHOS3, MG3, CK3 #### [address] #### VD25H #### [facility] [address] [place] [address] Monocytes #/vol (Bld) 1.2 10*3/uL High 0.0-0.8 [facility] Comment on above: Performed By: #### H EMDF, PT, BMP3M, PHOS3, MG3, CK3 #### [address] #### VD25H #### [facility] [address] [place] [address] Monocytes/100 WBC (Bld) 6.8 % Normal 2.0-10.0 [facility] Comment on above: Performed By: #### H EMDF, PT, BMP3M, PHOS3, MG3, CK3 #### [address] #### VD25H #### [facility] [address] [place] [address] Platelet mean volume Entitic volume (Bld) 8.1 fL Normal 7.4-10.4 [facility] Comment on above: Performed By: #### H EMDF, PT, BMP3M, PHOS3, MG3, CK3 #### [facility] [address] [place], [place] #### VD25H #### [facility] [address] [place] [address] Platelets #/vol (Bld) 507 10*3/uL High 140-440 [facility] Comment on above: Performed By: #### H EMDF, PT, BMP3M, PHOS3, MG3, CK3 #### [address] #### VD25H #### [facility] [address] [place] [address] RBC #/vol (Bld) 3.64 10*6/uL Low 4.40-5.90 [facility] Comment on above: Performed By: #### H EMDF, PT, BMP3M, PHOS3, MG3, CK3 #### [address] #### VD25H #### [facility] [address] [place] [address] WBC #/vol (Bld) 17.2 10*3/uL High 3.6-10.7 [facility] Comment on above: Performed By: #### H EMDF, PT, BMP3M, PHOS3, MG3, CK3 #### [address] #### VD25H #### [facility] [address] [place] [address] Magnesiumon 07-30-2018 Magnesium mass conc 2.5 mg/dL High 1.6-2.3 [facility] Comment on above: Performed By: #### H EMDF, PT, BMP3M, PHOS3, MG3, CK3 #### [address] #### VD25H #### [facility] [address] [place] [address] Phosphoruson 07-30-2018 Phosphate mass conc 4.5 mg/dL Normal 2.5-4.5 [facility] Comment on above: Performed By: #### H EMDF, PT, BMP3M, PHOS3, MG3, CK3 #### [facility] [address] [place] [address] #### VD25H #### [facility] [address] [place] [address] VL Venous Duplex US Lower Ex t Bilateralon 07-30-2018 VL Venous Duplex US Lower Ext Bilateral Patient Name: KATHYA HOOPER Ultrasound Exam Date/Time 07/30/2018 12:27:47 EDT Exam VL Venous Duplex US Lower Ext Bilateral Ordering Physician ETIENNE MARTÍNEZ JULIE Accession Number [id number] CPT4 Codes 56412 () Reason For Exam edema Report [facility] --- Lower Extremity Venous Duplex Report Patient Name: Kathya Hooper : 1955 Study Date: 07/30/2018 [place] (63yrs) Age: 63 Account: [id number] Gender: M Loc: T209 BP: Ordering: Yesenia Martínez Technologist: Ordering Physician: Yesenia Martínez Software Architect: Barbara Suarez RDMS, T Interpreting Physician: Krysta [...] performed. The images were obtained using a [employer] E9 vascular ultrasound machine. --- VENOUS FLOW [...] ---------+-------+--- --+ Electronically signed by: Krysta Arora [id number] Final Dictated: 07/30/2018 1:30 pm Dictating Physician: KRYSTA ARORA Signed Date and Time: 07/30/2018 1:29 pm Signed by: KRYSTA ARORA [facility] Arterial Blood Gaseson 07-29 CO2 molar conc 34.4 mmol/L High 23.0-27.0 [facility] Comment on above: Performed By: #### H EMDF, PT, BMP3M, PHOS3, MG3, CK3 #### [facility] [address] [place], [place] #### VD25H #### [facility] [address] [place] [address] HCO3 molar conc (Bld) 33.0 mmol/L High 21.0-25.0 [facility] Comment on above: Performed By: #### H EMDF, PT, BMP3M, PHOS3, MG3, CK3 #### [address] #### VD25H #### [facility] [address] [place] [address] Hemoglobin mass conc (Bld) 11.5 g/dL Normal ScreenOnly [facility] Comment on above: Performed By: #### H EMDF, PT, BMP3M, PHOS3, MG3, CK3 #### [address] #### VD25H #### [facility] [address] [place] [address] Oxygen ppres (Bld) 84.2 mm[Hg] Normal 80.0-100.0 [facility] Comment on above: Performed By: #### H EMDF, PT, BMP3M, PHOS3, MG3, CK3 #### [address] #### VD25H #### [facility] [address] [place] [address] Oxygen saturation in Blood 96.2 % Normal 95.0-100.0 [facility] Comment on above: Performed By: #### H EMDF, PT, BMP3M, PHOS3, MG3, CK3 #### [address] #### VD25H #### [facility] [address] [place] [address] pCO2 46.8 mm[Hg] High 35.0-45.0 [facility] Comment on above: Performed By: #### H EMDF, PT, BMP3M, PHOS3, MG3, CK3 #### [place] [address] [place] [address] #### VD25H #### [facility] [address] [place] [address] pH (Bld) 7.466 High 7.350-7.450 [facility] Comment on above: Performed By: #### H EMDF, PT, BMP3M, PHOS3, MG3, CK3 #### [address] #### VD25H #### [place] [address] [place] [address] Std Base Excess 8.2 mmol/L High -3.0-3.0 [facility] Comment on above: Performed By: #### H EMDF, PT, BMP3M, PHOS3, MG3, CK3 #### [address] #### VD25H #### [place] [address] [place] [address] FIO2 .30 Normal [facility] Comment on above: Performed By: #### H EMDF, PT, BMP3M, PHOS3, MG3, CK3 #### [address] #### VD25H #### [place] [address] [place] [address] Basic Metabolic Panelon 03- Calcium mass conc 8.5 mg/dL Normal 8.4-10.4 [facility] Comment on above: Performed By: #### H EMDF, PT, BMP3M, PHOS3, MG3, CK3 #### [address] #### VD25H #### [place] [address] [place] [address] Glucose mass conc 163 mg/dL High 70-100 [facility] Comment on above: Performed By: #### H EMDF, PT, BMP3M, PHOS3, MG3, CK3 #### [address] [place] [address] #### VD25H #### [facility] [address] [place] [address] Anion gap molar conc 10 Normal [facility] Comment on above: Performed By: #### H EMDF, PT, BMP3M, PHOS3, MG3, CK3 #### [address] #### VD25H #### [facility] [address] [place] [address] CO2 molar conc 37 mmol/L High 22-30 [facility] Comment on above: Performed By: #### H EMDF, PT, BMP3M, PHOS3, MG3, CK3 #### [address] #### VD25H #### [facility] [address] [place] [address] Creatinine mass conc 0.57 mg/dL Normal 0.52-1.25 [facility] Comment on above: Performed By: #### H EMDF, PT, BMP3M, PHOS3, MG3, CK3 #### [address] #### VD25H #### [facility] [address] [place] [address] GFR/1.73 sq M predicted among blacks MDRD vol rate/area (S/P/Bld) mL/min/{1.73_m2} Normal >60 [facility] Comment on above: Performed By: #### H EMDF, PT, BMP3M, PHOS3, MG3, CK3 #### [address] #### VD25H #### [facility] [address] [place] [address] GFR/1.73 sq M predicted among non-blacks MDRD vol rate/area (S/P/Bld) mL/min/{1.73_m2} Normal >60 [facility] Comment on above: Result Comment: Sour ce- MDRD equation with creatinine calibration to IDMS(NKDEP) eGFR not recommended for drug dose adjustment Performed By: #### H EMDF, PT, BMP3M, PHOS3, MG3, CK3 #### [facility] [address] [place] #### VD25H #### [facility] [address] [place] [address] Urea nitrogen mass conc 30 mg/dL High 7-20 [facility] Comment on above: Performed By: #### H EMDF, PT, BMP3M, PHOS3, MG3, CK3 #### [address] #### VD25H #### [facility] [address] [place] [address] Chloride molar conc 95 mmol/L Low 98-107 [facility] Comment on above: Performed By: #### H EMDF, PT, BMP3M, PHOS3, MG3, CK3 #### [facility] [address] [place], [place] #### VD25H #### [facility] [address] [place] [address] Potassium molar conc 3.3 mmol/L Low 3.5-5.1 [facility] Comment on above: Performed By: #### H EMDF, PT, BMP3M, PHOS3, MG3, CK3 #### [address] #### VD25H #### [facility] [address] [place] [address] Sodium molar conc 141 mmol/L Normal 135-145 [facility] Comment on above: Performed By: #### H EMDF, PT, BMP3M, PHOS3, MG3, CK3 #### [address] #### VD25H #### [facility] [address] [place] [address] CR Chest Portableon 07-30-19 CR Chest Portable Patient Name: KATHYA HOOPER Diagnostic Radiology Exam Date/Time 07/29/2018 07:01:44 EDT Exam CR Chest Portable Ordering Physician MARIA EUGENIA PEREZ Accession Number [id number] CPT4 Codes 47876 () Reason For Exam ETT placement Report [...] Transcribed Date and Time: 07/29/2018 9:04 Normal [facility] Glucose,Bedsideon 07-29-2018 Glucose mass conc 124 mg/dL High 70-100 [facility] Comment on above: Result Comment: Test performed by glucose meter. Results may be 10%-15% lower than serum/plasma values. (CLIA ID [id number]) Performed By: #### H EMDF, PT, BMP3M, PHOS3, MG3, CK3 #### [facility] [address] [place], [place] #### VD25H #### [facility] [address] [place] [address] Glucose mass conc 175 mg/dL High 70-100 [facility] Comment on above: Result Comment: Test performed by glucose meter. Results may be 10%-15% lower than serum/plasma values. (CLIA ID [id number]) Performed By: #### H EMDF, PT, BMP3M, PHOS3, MG3, CK3 #### [facility] [address] #### VD25H #### [facility] [address] [place] [address] Glucose mass conc 138 mg/dL High 70-100 [facility] Comment on above: Result Comment: Test performed by glucose meter. Results may be 10%-15% lower than serum/plasma values. (CLIA ID [id number]) Performed By: #### H EMDF, PT, BMP3M, PHOS3, MG3, CK3 #### [facility] [address] #### VD25H #### [facility] [address] [place] [address] Glucose mass conc 147 mg/dL High 70-100 [facility] Comment on above: Result Comment: Test performed by glucose meter. Results may be 10%-15% lower than serum/plasma values. (CLIA ID [id number]) Performed By: #### H EMDF, PT, BMP3M, PHOS3, MG3, CK3 #### [facility] [place] [address] #### VD25H #### [facility] [address] [place] [address] Hemogram w/ Autodiffon 07-29 Erythrocyte distribution width Ratio (RBC) 13.8 % Normal 11.5-14.5 [facility] Comment on above: Performed By: #### H EMDF, PT, BMP3M, PHOS3, MG3, CK3 #### [facility] [address] #### VD25H #### [facility] [address] [place] [address] Hematocrit Volume Fraction (Bld) 32.9 % Low 40.0-52.0 [facility] Comment on above: Performed By: #### H EMDF, PT, BMP3M, PHOS3, MG3, CK3 #### [address] [place], [place] #### VD25H #### [facility] [address] [place] [address] Hemoglobin mass conc (Bld) 11.0 g/dL Low 13.0-18.0 [facility] Comment on above: Performed By: #### H EMDF, PT, BMP3M, PHOS3, MG3, CK3 #### [address] #### VD25H #### [facility] [address] [place] [address] MCH Entitic mass (RBC) 29.0 pg Normal 26.0-34.0 [facility] Comment on above: Performed By: #### H EMDF, PT, BMP3M, PHOS3, MG3, CK3 #### [address] #### VD25H #### [facility] [address] [place] [address] MCHC mass conc (RBC) 33.6 % Normal 32.0-36.0 [facility] Comment on above: Performed By: #### H EMDF, PT, BMP3M, PHOS3, MG3, CK3 #### [address] #### VD25H #### [facility] [address] [place] [address] MCV Entitic volume (RBC) 86.3 fL Normal 80.0-98.0 [facility] Comment on above: Performed By: #### H EMDF, PT, BMP3M, PHOS3, MG3, CK3 #### [address] #### VD25H #### [facility] [address] [place] [address] Platelet mean volume Entitic volume (Bld) 8.1 fL Normal 7.4-10.4 [facility] Comment on above: Performed By: #### H EMDF, PT, BMP3M, PHOS3, MG3, CK3 #### [facility] [address] [place], [place] #### VD25H #### [facility] [address] [place] [address] Platelets #/vol (Bld) 501 10*3/uL High 140-440 [facility] Comment on above: Performed By: #### H EMDF, PT, BMP3M, PHOS3, MG3, CK3 #### [place] [address] [place], [place] #### VD25H #### [facility] [address] [place] [address] RBC #/vol (Bld) 3.81 10*6/uL Low 4.40-5.90 [facility] Comment on above: Performed By: #### H EMDF, PT, BMP3M, PHOS3, MG3, CK3 #### [address] [place], [place] #### VD25H #### [facility] [address] [place] [address] WBC #/vol (Bld) 20.8 10*3/uL High 3.6-10.7 [facility] Comment on above: Performed By: #### H EMDF, PT, BMP3M, PHOS3, MG3, CK3 #### [place] [address] [place] #### VD25H #### [facility] [address] [place] [address] Magnesiumon 07-29-2018 Magnesium mass conc 2.5 mg/dL High 1.6-2.3 [facility] Comment on above: Performed By: #### H EMDF, PT, BMP3M, PHOS3, MG3, CK3 #### [address] #### VD25H #### [facility] [address] [place] [address] Manual Diffon 07-29-2018 Abs Neutrophile Cnt 17.3 10*3/uL High 2.2-8.2 [facility] Comment on above: Performed By: #### H EMDF, PT, BMP3M, PHOS3, MG3, CK3 #### [place] [address] [place] #### VD25H #### [facility] [address] [place] [address] Bands 1 % Normal 0-3 [facility] Comment on above: Performed By: #### H EMDF, PT, BMP3M, PHOS3, MG3, CK3 #### [address] [place], [place] #### VD25H #### [facility] [address] [place] [address] Eosinophils #/vol (Bld) 0.6 10*3/uL High 0.0-0.5 [facility] Comment on above: Performed By: #### H EMDF, PT, BMP3M, PHOS3, MG3, CK3 #### [address] #### VD25H #### [facility] [address] [place] [address] Eosinophils/100 WBC (Bld) 3 % Normal 1-6 [facility] Comment on above: Performed By: #### H EMDF, PT, BMP3M, PHOS3, MG3, CK3 #### [address] [place], [place] #### VD25H #### [facility] [address] [place] [address] Lymphocytes #/vol (Bld) 2.3 10*3/uL Normal 1.1-4.5 [facility] Comment on above: Performed By: #### H EMDF, PT, BMP3M, PHOS3, MG3, CK3 #### [place] [address] [place] #### VD25H #### [place] [address] [place] [address] Lymphocytes/100 WBC (Bld) 11 % Low 20-40 [facility] Comment on above: Performed By: #### H EMDF, PT, BMP3M, PHOS3, MG3, CK3 #### [place] [address] [place] #### VD25H #### [facility] [address] [place] [address] Metamyelocytes 1 % Abnormal <1 [facility] Comment on above: Performed By: #### H EMDF, PT, BMP3M, PHOS3, MG3, CK3 #### [address] #### VD25H #### [facility] [address] [place] [address] Monocytes #/vol (Bld) 0.4 10*3/uL Normal 0.2-1.1 [facility] Comment on above: Performed By: #### H EMDF, PT, BMP3M, PHOS3, MG3, CK3 #### [address] #### VD25H #### [facility] [address] [place] [address] Monocytes/100 WBC (Bld) 2 % Normal 2-10 [facility] Comment on above: Performed By: #### H EMDF, PT, BMP3M, PHOS3, MG3, CK3 #### [place] [address] [place], [place] #### VD25H #### [facility] [address] [place] [address] RBC morphology finding Nom (Bld) See Prev Normal [facility] Comment on above: Performed By: #### H EMDF, PT, BMP3M, PHOS3, MG3, CK3 #### [address] #### VD25H #### [facility] [address] [place] [address] Seg Neutrophils 82 % High 40-80 [facility] Comment on above: Performed By: #### H EMDF, PT, BMP3M, PHOS3, MG3, CK3 #### [facility] [address] [place], [place] #### VD25H #### [facility] [address] [place] [address] Abs Baso Cnt 0.0 10*3/uL Normal 0.0-0.2 [facility] Comment on above: Performed By: #### H EMDF, PT, BMP3M, PHOS3, MG3, CK3 #### [address] #### VD25H #### [facility] [address] [place] [address] Basophils/100 WBC (Bld) 0 % Normal 0-2 [facility] Comment on above: Performed By: #### H EMDF, PT, BMP3M, PHOS3, MG3, CK3 #### [address] #### VD25H #### [facility] [address] [place] [address] Cells counted 100 Normal [facility] Comment on above: Performed By: #### H EMDF, PT, BMP3M, PHOS3, MG3, CK3 #### [address] #### VD25H #### [facility] [address] [place] [address] Phosphoruson 07-29-2018 Phosphate mass conc 4.2 mg/dL Normal 2.5-4.5 [facility] Comment on above: Performed By: #### H EMDF, PT, BMP3M, PHOS3, MG3, CK3 #### [address] #### VD25H #### [facility] [address] [place] [address] Procalcitoninon 07-29-2018 Protein mass conc 0.11 ng/mL Abnormal <0.10 [facility] Comment on above: Performed By: #### H EMDF, PT, BMP3M, PHOS3, MG3, CK3 #### [address] #### VD25H #### [facility] [address] [place] [address] Interpretation See Below Normal [facility] Comment on above: Result Comment: PCT <0.50 = Low risk of severe sepsis and/or septic shock. PCT >2.00 = High risk of severe sepsis and/or septic shock. Performed By: #### H EMDF, PT, BMP3M, PHOS3, MG3, CK3 #### [address] #### VD25H #### [place] [address] [place] [address] Vancomycin Troughon 07-30-19 Vancomycin Trough 12.2 ug/mL Low 15.0-20.0 [facility] Comment on above: Result Comment: . Performed By: #### H EMDF, PT, BMP3M, PHOS3, MG3, CK3 #### [address] #### VD25H #### [address] [place] [address] Basic Metabolic Panelon 07-01 Calcium mass conc 8.6 mg/dL Normal 8.4-10.4 [facility] Comment on above: Performed By: #### H EMDF, PT, BMP3M, PHOS3, MG3, CK3 #### [address] #### VD25H #### [facility] [address] [place] [place] [address] Glucose mass conc 158 mg/dL High 70-100 [facility] Comment on above: Performed By: #### H EMDF, PT, BMP3M, PHOS3, MG3, CK3 #### [address] [place] [address] #### VD25H #### [facility] [address] [place] [address] Urea nitrogen mass conc 29 mg/dL High 7-20 [facility] Comment on above: Performed By: #### H EMDF, PT, BMP3M, PHOS3, MG3, CK3 #### [address] [place] [address] #### VD25H #### [facility] [address] [place] [address] Anion gap molar conc 9 Normal [facility] Comment on above: Performed By: #### H EMDF, PT, BMP3M, PHOS3, MG3, CK3 #### [address] [place] [address] #### VD25H #### [facility] [address] [place] [address] CO2 molar conc 32 mmol/L High 22-30 [facility] Comment on above: Performed By: #### H EMDF, PT, BMP3M, PHOS3, MG3, CK3 #### [address] [address] #### VD25H #### [facility] [address] [place] [address] Creatinine mass conc 0.61 mg/dL Normal 0.52-1.25 [facility] Comment on above: Performed By: #### H EMDF, PT, BMP3M, PHOS3, MG3, CK3 #### [address] [place] #### VD25H #### [facility] [address] [place] [address] GFR/1.73 sq M predicted among blacks MDRD vol rate/area (S/P/Bld) mL/min/{1.73_m2} Normal >60 [facility] Comment on above: Performed By: #### H EMDF, PT, BMP3M, PHOS3, MG3, CK3 #### [address] [place] #### VD25H #### [facility] [address] [place] [address] GFR/1.73 sq M predicted among non-blacks MDRD vol rate/area (S/P/Bld) mL/min/{1.73_m2} Normal >60 [facility] Comment on above: Result Comment: Sour ce- MDRD equation with creatinine calibration to IDMS(NKDEP) eGFR not recommended for drug dose adjustment Performed By: #### H EMDF, PT, BMP3M, PHOS3, MG3, CK3 #### [address] #### VD25H #### [facility] [address] [place] [address] Potassium molar conc 3.6 mmol/L Normal 3.5-5.1 [facility] Comment on above: Performed By: #### H EMDF, PT, BMP3M, PHOS3, MG3, CK3 #### [address] [place] #### VD25H #### [facility] [address] [place] [address] Chloride molar conc 100 mmol/L Normal 98-107 [facility] Comment on above: Performed By: #### H EMDF, PT, BMP3M, PHOS3, MG3, CK3 #### [address] #### VD25H #### [facility] [address] [place] [address] Sodium molar conc 141 mmol/L Normal 135-145 [facility] Comment on above: Performed By: #### H EMDF, PT, BMP3M, PHOS3, MG3, CK3 #### [address] #### VD25H #### [facility] [address] [place] [address] CR Chest Portableon 07-29-19 19 CR Chest Portable Patient Name: KATHYA HOOPER Diagnostic Radiology Exam Date/Time 07/28/2018 07:09:40 EDT Exam CR Chest Portable Ordering Physician BROOKSJACQUELINE MARIA EUGENIA Accession Number [id number] CPT4 Codes 80653 () Reason For Exam ETT placement Report [...] Transcribed Date and Time: 07/28/2018 7:16 Normal [facility] Glucose,Bedsideon 07-28-2018 Glucose mass conc 149 mg/dL High 70-100 [facility] Comment on above: Result Comment: Test performed by glucose meter. Results may be 10%-15% lower than serum/plasma values. (CLIA ID [id number]) Performed By: #### H EMDF, PT, BMP3M, PHOS3, MG3, CK3 #### [facility] [address] [place] [address] #### VD25H #### [facility] [address] [place] [address] Glucose mass conc 142 mg/dL High 70-100 [facility] Comment on above: Result Comment: Test performed by glucose meter. Results may be 10%-15% lower than serum/plasma values. (CLIA ID [id number]) Performed By: #### H EMDF, PT, BMP3M, PHOS3, MG3, CK3 #### [facility] [address] [place], [place] #### VD25H #### [facility] [address] [place] [address] Hemogram w/ Autodiffon 07-28 Erythrocyte distribution width Ratio (RBC) 13.8 % Normal 11.5-14.5 [facility] Comment on above: Performed By: #### H EMDF, PT, BMP3M, PHOS3, MG3, CK3 #### [address] #### VD25H #### [facility] [address] [place] [address] Hematocrit Volume Fraction (Bld) 33.0 % Low 40.0-52.0 [facility] Comment on above: Performed By: #### H EMDF, PT, BMP3M, PHOS3, MG3, CK3 #### [address] #### VD25H #### [facility] [address] [place] [address] Hemoglobin mass conc (Bld) 11.0 g/dL Low 13.0-18.0 [facility] Comment on above: Performed By: #### H EMDF, PT, BMP3M, PHOS3, MG3, CK3 #### [address] #### VD25H #### [facility] [address] [place] [address] MCH Entitic mass (RBC) 28.7 pg Normal 26.0-34.0 [facility] Comment on above: Performed By: #### H EMDF, PT, BMP3M, PHOS3, MG3, CK3 #### [address] #### VD25H #### [facility] [address] [place] [address] MCHC mass conc (RBC) 33.4 % Normal 32.0-36.0 [facility] Comment on above: Performed By: #### H EMDF, PT, BMP3M, PHOS3, MG3, CK3 #### [facility] [address] [place] #### VD25H #### [facility] [address] [place] [address] MCV Entitic volume (RBC) 86.0 fL Normal 80.0-98.0 [facility] Comment on above: Performed By: #### H EMDF, PT, BMP3M, PHOS3, MG3, CK3 #### [address] [place] #### VD25H #### [facility] [address] [place] [address] Platelet mean volume Entitic volume (Bld) 8.4 fL Normal 7.4-10.4 [facility] Comment on above: Performed By: #### H EMDF, PT, BMP3M, PHOS3, MG3, CK3 #### [address] #### VD25H #### [facility] [address] [place] [address] Platelets #/vol (Bld) 477 10*3/uL High 140-440 [facility] Comment on above: Performed By: #### H EMDF, PT, BMP3M, PHOS3, MG3, CK3 #### [address] #### VD25H #### [facility] [address] [place] [address] RBC #/vol (Bld) 3.84 10*6/uL Low 4.40-5.90 [facility] Comment on above: Performed By: #### H EMDF, PT, BMP3M, PHOS3, MG3, CK3 #### [address] [place] #### VD25H #### [facility] [address] [place] [address] WBC #/vol (Bld) 18.1 10*3/uL High 3.6-10.7 [facility] Comment on above: Performed By: #### H EMDF, PT, BMP3M, PHOS3, MG3, CK3 #### [address] [place] #### VD25H #### [facility] [address] [place] [address] Magnesiumon 07-28-2018 Magnesium mass conc 2.4 mg/dL High 1.6-2.3 [facility] Comment on above: Performed By: #### H EMDF, PT, BMP3M, PHOS3, MG3, CK3 #### [address] #### VD25H #### [address] [place] [address] Manual Diffon 07-28-2018 Abs Neutrophile Cnt 14.8 10*3/uL High 2.2-8.2 [facility] Comment on above: Performed By: #### H EMDF, PT, BMP3M, PHOS3, MG3, CK3 #### [address] #### VD25H #### [facility] [address] [place] [address] Anisocytosis Ql (Bld) Slight Normal [facility] Comment on above: Performed By: #### H EMDF, PT, BMP3M, PHOS3, MG3, CK3 #### [address] #### VD25H #### [facility] [address] [place] [address] Hypochromia Slight Normal [facility] Comment on above: Performed By: #### H EMDF, PT, BMP3M, PHOS3, MG3, CK3 #### [address] #### VD25H #### [facility] [address] [place] [address] Lymphocytes #/vol (Bld) 1.3 10*3/uL Normal 1.1-4.5 [facility] Comment on above: Performed By: #### H EMDF, PT, BMP3M, PHOS3, MG3, CK3 #### [facility] [address] [place] #### VD25H #### [facility] [address] [place] [address] Lymphocytes/100 WBC (Bld) 7 % Low 20-40 [facility] Comment on above: Performed By: #### H EMDF, PT, BMP3M, PHOS3, MG3, CK3 #### [address] [place] #### VD25H #### [facility] [address] [place] [address] Microcytosis Slight Normal [facility] Comment on above: Performed By: #### H EMDF, PT, BMP3M, PHOS3, MG3, CK3 #### [address] [place] #### VD25H #### [facility] [address] [place] [address] Monocytes #/vol (Bld) 2.0 10*3/uL High 0.2-1.1 [facility] Comment on above: Performed By: #### H EMDF, PT, BMP3M, PHOS3, MG3, CK3 #### [address] [place] #### VD25H #### [facility] [address] [place] [address] Monocytes/100 WBC (Bld) 11 % High 2-10 [facility] Comment on above: Performed By: #### H EMDF, PT, BMP3M, PHOS3, MG3, CK3 #### [address] [place] #### VD25H #### [facility] [address] [place] [address] RBC morphology finding Nom (Bld) ABNORMAL Normal [facility] Comment on above: Performed By: #### H EMDF, PT, BMP3M, PHOS3, MG3, CK3 #### [address] [place] #### VD25H #### [facility] [address] [place] [address] Seg Neutrophils 82 % High 40-80 [facility] Comment on above: Performed By: #### H EMDF, PT, BMP3M, PHOS3, MG3, CK3 #### [address] [place] #### VD25H #### [facility] [address] [place] [address] Abs Baso Cnt 0.0 10*3/uL Normal 0.0-0.2 [facility] Comment on above: Performed By: #### H EMDF, PT, BMP3M, PHOS3, MG3, CK3 #### [address] [place] #### VD25H #### [facility] [address] [place] [address] Bands 0 % Normal 0-3 [facility] Comment on above: Performed By: #### H EMDF, PT, BMP3M, PHOS3, MG3, CK3 #### [address] [place] #### VD25H #### [facility] [address] [place] [address] Basophils/100 WBC (Bld) 0 % Normal 0-2 [facility] Comment on above: Performed By: #### H EMDF, PT, BMP3M, PHOS3, MG3, CK3 #### [address] [place] #### VD25H #### [facility] [address] [place] [address] Cells counted 100 Normal [facility] Comment on above: Performed By: #### H EMDF, PT, BMP3M, PHOS3, MG3, CK3 #### [address] [place] #### VD25H #### [facility] [address] [place] [address] Eosinophils #/vol (Bld) 0.0 10*3/uL Normal 0.0-0.5 [facility] Comment on above: Performed By: #### H EMDF, PT, BMP3M, PHOS3, MG3, CK3 #### [address] [place] #### VD25H #### [facility] [address] [place] [address] Eosinophils/100 WBC (Bld) 0 % Low 1-6 [facility] Comment on above: Performed By: #### H EMDF, PT, BMP3M, PHOS3, MG3, CK3 #### [address] [place] #### VD25H #### [facility] [address] [place] [address] Phosphoruson 07-28-2018 Phosphate mass conc 4.4 mg/dL Normal 2.5-4.5 [facility] Comment on above: Performed By: #### H EMDF, PT, BMP3M, PHOS3, MG3, CK3 #### [address] [place] #### VD25H #### [facility] [address] [place] [address] Vancomycin Troughon 07-29-19 19 Vancomycin Trough 12.9 ug/mL Low 15.0-20.0 [facility] Comment on above: Result Comment: . Performed By: #### H EMDF, PT, BMP3M, PHOS3, MG3, CK3 #### [address] [place] #### VD25H #### [facility] [address] [place] [address] Arterial Blood Gaseson 07-27 CO2 molar conc 28.4 mmol/L High 23.0-27.0 [facility] Comment on above: Performed By: #### H EMDF, PT, BMP3M, PHOS3, MG3, CK3 #### [address] #### VD25H #### [facility] [address] [place] [address] HCO3 molar conc (Bld) 27.2 mmol/L High 21.0-25.0 [facility] Comment on above: Performed By: #### H EMDF, PT, BMP3M, PHOS3, MG3, CK3 #### [address] #### VD25H #### [facility] [address] [place] [address] Hemoglobin mass conc (Bld) 11.7 g/dL Normal [facility] Comment on above: Performed By: #### H EMDF, PT, BMP3M, PHOS3, MG3, CK3 #### [address] #### VD25H #### [facility] [address] [place] [address] Oxygen ppres (Bld) 91.3 mm[Hg] Normal 80.0-100.0 [facility] Comment on above: Performed By: #### H EMDF, PT, BMP3M, PHOS3, MG3, CK3 #### [address] #### VD25H #### [facility] [address] [place] [address] Oxygen saturation in Blood 96.9 % Normal 95.0-100.0 [facility] Comment on above: Performed By: #### H EMDF, PT, BMP3M, PHOS3, MG3, CK3 #### [address] #### VD25H #### [facility] [address] [place] [address] pCO2 39.0 mm[Hg] Normal 35.0-45.0 [facility] Comment on above: Performed By: #### H EMDF, PT, BMP3M, PHOS3, MG3, CK3 #### [facility] [address] [place] #### VD25H #### [facility] [address] [place] [address] pH (Bld) 7.461 High 7.350-7.450 [facility] Comment on above: Performed By: #### H EMDF, PT, BMP3M, PHOS3, MG3, CK3 #### [address] [place] #### VD25H #### [facility] [address] [place] [address] Std Base Excess 3.2 mmol/L High -3.0-3.0 [facility] Comment on above: Performed By: #### H EMDF, PT, BMP3M, PHOS3, MG3, CK3 #### [address] [place] #### VD25H #### [facility] [address] [place] [address] FIO2 No data Normal [facility] Comment on above: Performed By: #### H EMDF, PT, BMP3M, PHOS3, MG3, CK3 #### [address] [place] #### VD25H #### [facility] [address] [place] [address] Basic Metabolic Panelon 03-2 Anion gap molar conc 12 Normal [facility] Comment on above: Performed By: #### H EMDF, PT, BMP3M, PHOS3, MG3, CK3 #### [address] [place] #### VD25H #### [facility] [address] [place] [address] Calcium mass conc 8.3 mg/dL Low 8.4-10.4 [facility] Comment on above: Performed By: #### H EMDF, PT, BMP3M, PHOS3, MG3, CK3 #### [address] [place] [address] #### VD25H #### [facility] [address] [place] [address] CO2 molar conc 28 mmol/L Normal 22-30 [facility] Comment on above: Performed By: #### H EMDF, PT, BMP3M, PHOS3, MG3, CK3 #### [address] [place] [address] #### VD25H #### [facility] [address] [place] [address] Glucose mass conc 156 mg/dL High 70-100 [facility] Comment on above: Performed By: #### H EMDF, PT, BMP3M, PHOS3, MG3, CK3 #### [address] #### VD25H #### [facility] [address] [place] [address] Urea nitrogen mass conc 21 mg/dL High 7-20 [facility] Comment on above: Performed By: #### H EMDF, PT, BMP3M, PHOS3, MG3, CK3 #### [address] [place] #### VD25H #### [facility] [address] [place] [address] Creatinine mass conc 0.53 mg/dL Normal 0.52-1.25 [facility] Comment on above: Performed By: #### H EMDF, PT, BMP3M, PHOS3, MG3, CK3 #### [address] #### VD25H #### [facility] [address] [place] [address] GFR/1.73 sq M predicted among blacks MDRD vol rate/area (S/P/Bld) mL/min/{1.73_m2} Normal >60 [facility] Comment on above: Performed By: #### H EMDF, PT, BMP3M, PHOS3, MG3, CK3 #### [address] [place] #### VD25H #### [facility] [address] [place] [address] GFR/1.73 sq M predicted among non-blacks MDRD vol rate/area (S/P/Bld) mL/min/{1.73_m2} Normal >60 [facility] Comment on above: Result Comment: Sour ce- MDRD equation with creatinine calibration to IDMS(NKDEP) eGFR not recommended for drug dose adjustment Performed By: #### H EMDF, PT, BMP3M, PHOS3, MG3, CK3 #### [address] [place] #### VD25H #### [facility] [address] [place] [address] Potassium molar conc 3.2 mmol/L Low 3.5-5.1 [facility] Comment on above: Performed By: #### H EMDF, PT, BMP3M, PHOS3, MG3, CK3 #### [address] [place] #### VD25H #### [facility] [address] [place] [address] Chloride molar conc 99 mmol/L Normal 98-107 [facility] Comment on above: Performed By: #### H EMDF, PT, BMP3M, PHOS3, MG3, CK3 #### [address] [place] #### VD25H #### [facility] [address] [place] [address] Sodium molar conc 139 mmol/L Normal 135-145 [facility] Comment on above: Performed By: #### H EMDF, PT, BMP3M, PHOS3, MG3, CK3 #### [address] [facility] #### VD25H #### [facility] [address] [place] [address] CR Chest Portableon 07-28-19 19 CR Chest Portable Patient Name: KATHYA HOOPER Diagnostic Radiology Exam Date/Time 07/27/2018 07:08:59 EDT Exam CR Chest Portable Ordering Physician MARIA EUGENIA PEREZ Accession Number [id number] CPT4 Codes 26733 () Reason For Exam ETT placement Report [...] Transcribed Date and Time: 07/27/2018 8:02 Normal [facility] Glucose,Bedsideon 07-27-2018 Glucose mass conc 151 mg/dL High 70-100 [facility] Comment on above: Result Comment: Test performed by glucose meter. Results may be 10%-15% lower than serum/plasma values. (CLIA ID [id number]) Performed By: #### H EMDF, PT, BMP3M, PHOS3, MG3, CK3 #### [facility] [address] [place] [address] #### VD25H #### [facility] [address] [place] [address] Glucose mass conc 131 mg/dL High 70-100 [facility] [place] [facility] Comment on above: Result Comment: Test performed by glucose meter. Results may be 10%-15% lower than serum/plasma values. (CLIA ID [id number]) Performed By: #### H EMDF, PT, BMP3M, PHOS3, MG3, CK3 #### [facility] [address] #### VD25H #### [facility] [facility] [address] [place] [address] Glucose mass conc 123 mg/dL High 70-100 [facility] Comment on above: Result Comment: Test performed by glucose meter. Results may be 10%-15% lower than serum/plasma values. (CLIA ID [id number]) Performed By: #### H EMDF, PT, BMP3M, PHOS3, MG3, CK3 #### [facility] [address] #### VD25H #### [facility] [facility] [address] [place] [address] Glucose mass conc 133 mg/dL High 70-100 [facility] Comment on above: Result Comment: Test performed by glucose meter. Results may be 10%-15% lower than serum/plasma values. (CLIA ID [id number]) Performed By: #### H EMDF, PT, BMP3M, PHOS3, MG3, CK3 #### [facility] [address] #### VD25H #### [employer] [facility] [address] [place] [address] Hemogram w/ Autodiffon 07-27 Erythrocyte distribution width Ratio (RBC) 13.5 % Normal 11.5-14.5 [facility] Comment on above: Performed By: #### H EMDF, PT, BMP3M, PHOS3, MG3, CK3 #### [employer] [address] #### VD25H #### [facility] [facility] [address] [place] [address] Hematocrit Volume Fraction (Bld) 32.5 % Low 40.0-52.0 [facility] Comment on above: Performed By: #### H EMDF, PT, BMP3M, PHOS3, MG3, CK3 #### [facility] [address] [place] [address], [place] #### VD25H #### [facility] [address] [place] [address] Hemoglobin mass conc (Bld) 11.1 g/dL Low 13.0-18.0 [facility] Comment on above: Performed By: #### H EMDF, PT, BMP3M, PHOS3, MG3, CK3 #### [address] #### VD25H #### [facility] [address] [place] [address] MCH Entitic mass (RBC) 29.2 pg Normal 26.0-34.0 [facility] Comment on above: Performed By: #### H EMDF, PT, BMP3M, PHOS3, MG3, CK3 #### [address] #### VD25H #### [place] [address] [place] [address] MCHC mass conc (RBC) 34.1 % Normal 32.0-36.0 [facility] Comment on above: Performed By: #### H EMDF, PT, BMP3M, PHOS3, MG3, CK3 #### [address] #### VD25H #### [place] [address] [place] [address] MCV Entitic volume (RBC) 85.7 fL Normal 80.0-98.0 [facility] Comment on above: Performed By: #### H EMDF, PT, BMP3M, PHOS3, MG3, CK3 #### [address] #### VD25H #### [place] [address] [place] [address] Platelet mean volume Entitic volume (Bld) 7.9 fL Normal 7.4-10.4 [facility] Comment on above: Performed By: #### H EMDF, PT, BMP3M, PHOS3, MG3, CK3 #### [address] [place] #### VD25H #### [facility] [address] [place] [address] Platelets #/vol (Bld) 466 10*3/uL High 140-440 [facility] Comment on above: Performed By: #### H EMDF, PT, BMP3M, PHOS3, MG3, CK3 #### [address] [place] #### VD25H #### [facility] [address] [place] [address] RBC #/vol (Bld) 3.79 10*6/uL Low 4.40-5.90 [facility] Comment on above: Performed By: #### H EMDF, PT, BMP3M, PHOS3, MG3, CK3 #### [address] [place] #### VD25H #### [facility] [address] [place] [address] WBC #/vol (Bld) 18.7 10*3/uL High 3.6-10.7 [facility] Comment on above: Performed By: #### H EMDF, PT, BMP3M, PHOS3, MG3, CK3 #### [address] #### VD25H #### [facility] [address] [place] [address] Magnesiumon 07-27-2018 Magnesium mass conc 2.1 mg/dL Normal 1.6-2.3 [facility] Comment on above: Performed By: #### H EMDF, PT, BMP3M, PHOS3, MG3, CK3 #### [address] [place] #### VD25H #### [facility] [address] [place] [address] Manual Diffon 07-27-2018 RBC morphology finding Nom (Bld) Normal Normal [facility] Comment on above: Performed By: #### H EMDF, PT, BMP3M, PHOS3, MG3, CK3 #### [facility] [address] [place] #### VD25H #### [facility] [address] [place] [address] Abs Neutrophile Cnt 14.2 10*3/uL High 2.2-8.2 [facility] Comment on above: Performed By: #### H EMDF, PT, BMP3M, PHOS3, MG3, CK3 #### [facility] [address] [place] #### VD25H #### [facility] [address] [place] [address] Atypical Lymphocytes 2 % Abnormal <1 [facility] Comment on above: Performed By: #### H EMDF, PT, BMP3M, PHOS3, MG3, CK3 #### [address] #### VD25H #### [facility] [address] [place] [address] Bands 5 % High 0-3 [facility] Comment on above: Performed By: #### H EMDF, PT, BMP3M, PHOS3, MG3, CK3 #### [address] [place] #### VD25H #### [facility] [address] [place] [address] Eosinophils #/vol (Bld) 0.6 10*3/uL High 0.0-0.5 [facility] Comment on above: Performed By: #### H EMDF, PT, BMP3M, PHOS3, MG3, CK3 #### [address] [place], [place] #### VD25H #### [facility] [address] [place] [address] Eosinophils/100 WBC (Bld) 3 % Normal 1-6 [facility] Comment on above: Performed By: #### H EMDF, PT, BMP3M, PHOS3, MG3, CK3 #### [facility] [address] [place], [place] #### VD25H #### [facility] [address] [place] [address] Lymphocytes #/vol (Bld) 2.1 10*3/uL Normal 1.1-4.5 [facility] Comment on above: Performed By: #### H EMDF, PT, BMP3M, PHOS3, MG3, CK3 #### [facility] [address] [place], [place] #### VD25H #### [facility] [address] [place] [address] Lymphocytes/100 WBC (Bld) 11 % Low 20-40 [facility] Comment on above: Performed By: #### H EMDF, PT, BMP3M, PHOS3, MG3, CK3 #### [address] [place], [place] #### VD25H #### [facility] [address] [place] [address] Monocytes #/vol (Bld) 1.5 10*3/uL High 0.2-1.1 [facility] Comment on above: Performed By: #### H EMDF, PT, BMP3M, PHOS3, MG3, CK3 #### [address] [place], [place] #### VD25H #### [facility] [address] [place] [address] Monocytes/100 WBC (Bld) 8 % Normal 2-10 [facility] Comment on above: Performed By: #### H EMDF, PT, BMP3M, PHOS3, MG3, CK3 #### [address] [place], [place] #### VD25H #### [facility] [address] [place] [address] NRBC 1 /100{WBCs} High -1-0 [facility] Comment on above: Result Comment: Newb orn (<60 days) 1-10 Adult <1 Performed By: #### H EMDF, PT, BMP3M, PHOS3, MG3, CK3 #### [address] #### VD25H #### [facility] [address] [place] [address] Seg Neutrophils 71 % Normal 40-80 [facility] Comment on above: Performed By: #### H EMDF, PT, BMP3M, PHOS3, MG3, CK3 #### [address] #### VD25H #### [facility] [address] [place] [address] Abs Baso Cnt 0.0 10*3/uL Normal 0.0-0.2 [facility] Comment on above: Performed By: #### H EMDF, PT, BMP3M, PHOS3, MG3, CK3 #### [address] #### VD25H #### [facility] [address] [place] [address] Basophils/100 WBC (Bld) 0 % Normal 0-2 [facility] Comment on above: Performed By: #### H EMDF, PT, BMP3M, PHOS3, MG3, CK3 #### [address] #### VD25H #### [facility] [address] [place] [address] Cells counted 100 Normal [facility] Comment on above: Performed By: #### H EMDF, PT, BMP3M, PHOS3, MG3, CK3 #### [address] #### VD25H #### [facility] [address] [place] [address] Phosphoruson 07-27-2018 Phosphate mass conc 3.0 mg/dL Normal 2.5-4.5 [facility] Comment on above: Performed By: #### H EMDF, PT, BMP3M, PHOS3, MG3, CK3 #### [facility] [address] [place] [address] #### VD25H #### [facility] [address] [place] [address] VL Venous Duplex US Lower Ex t Bilateralon 07-27-2018 VL Venous Duplex US Lower Ext Bilateral Patient Name: KATHYA HOOPER Ultrasound Exam Date/Time 07/27/2018 10:56:18 EDT Exam VL Venous Duplex US Lower Ext Bilateral Ordering Physician ETIENNE MARTÍNEZ JULIE Accession Number [id number] CPT4 Codes 16858 () Reason For Exam edema Report [facility] --- Lower Extremity Venous Duplex Report Patient Name: Kathya Hooper : 1955 Study Date: 07/27/2018 W (63yrs) Age: 63 Account: [id number] Gender: M Loc: T209 BP: Ordering: Yesenia Martínez Technologist: Ordering Physician: Yesenia Martínez Software Architect: Mary Man Lissette Interpreting Physician: Ricardo Hall [...] performed. The images were obtained using a [employer] E9 vascular ultrasound machine. The study was [...] --+ Electronically signed by: Ricardo Hall MD [id number] Final Dictated: 07/27/2018 12:55 pm Dictating Physician: RICARDO HALL Signed Date and Time: 07/27/2018 12:55 pm Signed by: RICARDO HALL Normal [facility] Basic Metabolic Panelon 06-30 Calcium mass conc 7.9 mg/dL Low 8.4-10.4 [facility] Comment on above: Performed By: #### H EMDF, PT, BMP3M, PHOS3, MG3, CK3 #### [address] #### VD25H #### [facility] [address] [place] [address] Anion gap molar conc 9 Normal [facility] Comment on above: Performed By: #### H EMDF, PT, BMP3M, PHOS3, MG3, CK3 #### [address] #### VD25H #### [facility] [address] [place] [address] CO2 molar conc 24 mmol/L Normal 22-30 [facility] Comment on above: Performed By: #### H EMDF, PT, BMP3M, PHOS3, MG3, CK3 #### [address] #### VD25H #### [facility] [address] [place] [address] Creatinine mass conc 0.54 mg/dL Normal 0.52-1.25 [facility] Comment on above: Performed By: #### H EMDF, PT, BMP3M, PHOS3, MG3, CK3 #### [facility] [address] [place] [address] #### VD25H #### [facility] [address] [place] [address] GFR/1.73 sq M predicted among blacks MDRD vol rate/area (S/P/Bld) mL/min/{1.73_m2} Normal >60 [facility] Comment on above: Performed By: #### H EMDF, PT, BMP3M, PHOS3, MG3, CK3 #### [address] [place] [address] #### VD25H #### [facility] [address] [place] [address] GFR/1.73 sq M predicted among non-blacks MDRD vol rate/area (S/P/Bld) mL/min/{1.73_m2} Normal >60 [facility] Comment on above: Result Comment: Sour ce- MDRD equation with creatinine calibration to IDMS(NKDEP) eGFR not recommended for drug dose adjustment Performed By: #### H EMDF, PT, BMP3M, PHOS3, MG3, CK3 #### [address] [place] #### VD25H #### [facility] [address] [place] [address] Glucose mass conc 166 mg/dL High 70-100 [facility] Comment on above: Performed By: #### H EMDF, PT, BMP3M, PHOS3, MG3, CK3 #### [address] [facility] #### VD25H #### [facility] [address] [place] [address] Urea nitrogen mass conc 21 mg/dL High 7-20 [facility] Comment on above: Performed By: #### H EMDF, PT, BMP3M, PHOS3, MG3, CK3 #### [address] [address] [place] #### VD25H #### [facility] [address] [place] [address] Chloride molar conc 107 mmol/L Normal 98-107 [facility] Comment on above: Performed By: #### H EMDF, PT, BMP3M, PHOS3, MG3, CK3 #### [facility] [address] [place] [address] #### VD25H #### [facility] [address] [place] [address] Potassium molar conc 3.7 mmol/L Normal 3.5-5.1 [facility] Comment on above: Performed By: #### H EMDF, PT, BMP3M, PHOS3, MG3, CK3 #### [facility] [address] [place] [address] #### VD25H #### [facility] [address] [place] [address] Sodium molar conc 140 mmol/L Normal 135-145 [facility] Comment on above: Performed By: #### H EMDF, PT, BMP3M, PHOS3, MG3, CK3 #### [facility] [address] [place] #### VD25H #### [facility] [address] [place] [address] CR Chest Portableon 07-27-19 19 CR Chest Portable Patient Name: KATHYA HOOPER Diagnostic Radiology Exam Date/Time 07/26/2018 06:06:25 EDT Exam CR Chest Portable Ordering Physician MARIA EUGENIA PEREZ Accession Number [id number] CPT4 Codes 29729 () Reason For Exam ETT placement Report [...] 9:15 Normal [facility] Glucose,Bedsideon 07-26-2018 Glucose mass conc 160 mg/dL High 70-100 [facility] Comment on above: Result Comment: Test performed by glucose meter. Results may be 10%-15% lower than serum/plasma values. (CLIA ID [id number]) Performed By: #### H EMDF, PT, BMP3M, PHOS3, MG3, CK3 #### [facility] [address] [place] [address] #### VD25H #### [facility] [address] [place] [address] Glucose mass conc 166 mg/dL High 70-100 [facility] Comment on above: Result Comment: Test performed by glucose meter. Results may be 10%-15% lower than serum/plasma values. (CLIA ID [id number]) Performed By: #### H EMDF, PT, BMP3M, PHOS3, MG3, CK3 #### [facility] [address] [place] [address] #### VD25H #### [facility] [address] [place] [address] Glucose mass conc 183 mg/dL High 70-100 [facility] Comment on above: Result Comment: Test performed by glucose meter. Results may be 10%-15% lower than serum/plasma values. (CLIA ID [id number]) Performed By: #### H EMDF, PT, BMP3M, PHOS3, MG3, CK3 #### [facility] [address] [place] [address] #### VD25H #### [facility] [address] [place] [address] Glucose mass conc 151 mg/dL High 70-100 [facility] Comment on above: Result Comment: Test performed by glucose meter. Results may be 10%-15% lower than serum/plasma values. (CLIA ID [id number]) Performed By: #### H EMDF, PT, BMP3M, PHOS3, MG3, CK3 #### [address] #### VD25H #### [facility] [address] [place] [address] Hemogram w/ Autodiffon 07-26 Erythrocyte distribution width Ratio (RBC) 13.7 % Normal 11.5-14.5 [facility] Comment on above: Performed By: #### H EMDF, PT, BMP3M, PHOS3, MG3, CK3 #### [address] #### VD25H #### [facility] [address] [place] [address] Hematocrit Volume Fraction (Bld) 31.1 % Low 40.0-52.0 [facility] Comment on above: Performed By: #### H EMDF, PT, BMP3M, PHOS3, MG3, CK3 #### [address] #### VD25H #### [facility] [address] [place] [address] Hemoglobin mass conc (Bld) 10.6 g/dL Low 13.0-18.0 [facility] Comment on above: Performed By: #### H EMDF, PT, BMP3M, PHOS3, MG3, CK3 #### [address] #### VD25H #### [facility] [address] [place] [address] MCH Entitic mass (RBC) 29.2 pg Normal 26.0-34.0 [facility] Comment on above: Performed By: #### H EMDF, PT, BMP3M, PHOS3, MG3, CK3 #### [address] [place], [place] #### VD25H #### [facility] [address] [place] [address] MCHC mass conc (RBC) 34.0 % Normal 32.0-36.0 [facility] Comment on above: Performed By: #### H EMDF, PT, BMP3M, PHOS3, MG3, CK3 #### [address] [place] #### VD25H #### [facility] [address] [place] [address] MCV Entitic volume (RBC) 86.1 fL Normal 80.0-98.0 [facility] Comment on above: Performed By: #### H EMDF, PT, BMP3M, PHOS3, MG3, CK3 #### [address] #### VD25H #### [facility] [address] [place] [address] Platelet mean volume Entitic volume (Bld) 8.3 fL Normal 7.4-10.4 [facility] Comment on above: Performed By: #### H EMDF, PT, BMP3M, PHOS3, MG3, CK3 #### [address] #### VD25H #### [facility] [address] [place] [address] Platelets #/vol (Bld) 364 10*3/uL Normal 140-440 [facility] Comment on above: Performed By: #### H EMDF, PT, BMP3M, PHOS3, MG3, CK3 #### [address] #### VD25H #### [facility] [address] [place] [address] RBC #/vol (Bld) 3.62 10*6/uL Low 4.40-5.90 [facility] Comment on above: Performed By: #### H EMDF, PT, BMP3M, PHOS3, MG3, CK3 #### [facility] [address] [place] #### VD25H #### [facility] [address] [place] [address] WBC #/vol (Bld) 15.2 10*3/uL High 3.6-10.7 [facility] Comment on above: Performed By: #### H EMDF, PT, BMP3M, PHOS3, MG3, CK3 #### [address] #### VD25H #### [facility] [address] [place] [address] Magnesiumon 07-26-2018 Magnesium mass conc 2.0 mg/dL Normal 1.6-2.3 [facility] Comment on above: Performed By: #### H EMDF, PT, BMP3M, PHOS3, MG3, CK3 #### [address] #### VD25H #### [facility] [address] [place] [address] Manual Diffon 07-26-2018 Abs Neutrophile Cnt 12.8 10*3/uL High 2.2-8.2 [facility] Comment on above: Performed By: #### H EMDF, PT, BMP3M, PHOS3, MG3, CK3 #### [address] #### VD25H #### [facility] [address] [place] [address] Lymphocytes #/vol (Bld) 1.4 10*3/uL Normal 1.1-4.5 [facility] Comment on above: Performed By: #### H EMDF, PT, BMP3M, PHOS3, MG3, CK3 #### [address] #### VD25H #### [facility] [address] [place] [address] Lymphocytes/100 WBC (Bld) 9 % Low 20-40 [facility] Comment on above: Performed By: #### H EMDF, PT, BMP3M, PHOS3, MG3, CK3 #### [facility] [address] [place] #### VD25H #### [facility] [address] [place] [address] Monocytes #/vol (Bld) 1.1 10*3/uL Normal 0.2-1.1 [facility] Comment on above: Performed By: #### H EMDF, PT, BMP3M, PHOS3, MG3, CK3 #### [address] #### VD25H #### [facility] [address] [place] [address] Monocytes/100 WBC (Bld) 7 % Normal 2-10 [facility] Comment on above: Performed By: #### H EMDF, PT, BMP3M, PHOS3, MG3, CK3 #### [address] [place] [address] [place] #### VD25H #### [facility] [address] [place] [address] RBC morphology finding Nom (Bld) Normal Normal [facility] Comment on above: Performed By: #### H EMDF, PT, BMP3M, PHOS3, MG3, CK3 #### [address] [address] [place] #### VD25H #### [facility] [address] [place] [address] Seg Neutrophils 84 % High 40-80 [facility] Comment on above: Performed By: #### H EMDF, PT, BMP3M, PHOS3, MG3, CK3 #### [address] #### VD25H #### [facility] [address] [place] [address] Abs Baso Cnt 0.0 10*3/uL Normal 0.0-0.2 [facility] Comment on above: Performed By: #### H EMDF, PT, BMP3M, PHOS3, MG3, CK3 #### [facility] [address] [place], [place] #### VD25H #### [facility] [address] [place] [address] Bands 0 % Normal 0-3 [facility] Comment on above: Performed By: #### H EMDF, PT, BMP3M, PHOS3, MG3, CK3 #### [facility] [address] [place] #### VD25H #### [facility] [address] [place] [address] Basophils/100 WBC (Bld) 0 % Normal 0-2 [facility] Comment on above: Performed By: #### H EMDF, PT, BMP3M, PHOS3, MG3, CK3 #### [address] [place] #### VD25H #### [facility] [address] [place] [address] Cells counted 100 Normal [facility] Comment on above: Performed By: #### H EMDF, PT, BMP3M, PHOS3, MG3, CK3 #### [address] [place] #### VD25H #### [facility] [address] [place] [address] Eosinophils #/vol (Bld) 0.0 10*3/uL Normal 0.0-0.5 [facility] Comment on above: Performed By: #### H EMDF, PT, BMP3M, PHOS3, MG3, CK3 #### [address] [place] #### VD25H #### [facility] [address] [place] [address] Eosinophils/100 WBC (Bld) 0 % Low 1-6 [facility] Comment on above: Performed By: #### H EMDF, PT, BMP3M, PHOS3, MG3, CK3 #### [address] #### VD25H #### [facility] [address] [place] [address] Phosphoruson 07-26-2018 Phosphate mass conc 3.1 mg/dL Normal 2.5-4.5 [facility] Comment on above: Performed By: #### H EMDF, PT, BMP3M, PHOS3, MG3, CK3 #### [address] #### VD25H #### [facility] [address] [place] [address] Vancomycin Troughon 07-27-19 19 Vancomycin Trough 8.9 ug/mL Low 15.0-20.0 [facility] Comment on above: Result Comment: . Performed By: #### H EMDF, PT, BMP3M, PHOS3, MG3, CK3 #### [address] #### VD25H #### [facility] [address] [place] [address] Arterial Blood Gaseson 07-25 CO2 molar conc 22.0 mmol/L Low 23.0-27.0 [facility] Comment on above: Performed By: #### H EMDF, PT, BMP3M, PHOS3, MG3, CK3 #### [address] #### VD25H #### [facility] [address] [place] [address] HCO3 molar conc (Bld) 21.1 mmol/L Normal 21.0-25.0 [facility] Comment on above: Performed By: #### H EMDF, PT, BMP3M, PHOS3, MG3, CK3 #### [address] #### VD25H #### [facility] [address] [place] [address] Hemoglobin mass conc (Bld) 10.1 g/dL Normal ScreenOnly [facility] Comment on above: Performed By: #### H EMDF, PT, BMP3M, PHOS3, MG3, CK3 #### [facility] [address] [place] #### VD25H #### [facility] [address] [place] [address] Oxygen ppres (Bld) 88.3 mm[Hg] Normal 80.0-100.0 [facility] Comment on above: Performed By: #### H EMDF, PT, BMP3M, PHOS3, MG3, CK3 #### [address] [place] #### VD25H #### [facility] [address] [place] [address] Oxygen saturation in Blood 96.8 % Normal 95.0-100.0 [facility] Comment on above: Performed By: #### H EMDF, PT, BMP3M, PHOS3, MG3, CK3 #### [address] [facility] #### VD25H #### [facility] [address] [place] [address] pCO2 29.9 mm[Hg] Low 35.0-45.0 [facility] Comment on above: Performed By: #### H EMDF, PT, BMP3M, PHOS3, MG3, CK3 #### [facility] [address] [place] #### VD25H #### [facility] [address] [place] [address] pH (Bld) 7.467 High 7.350-7.450 [facility] Comment on above: Performed By: #### H EMDF, PT, BMP3M, PHOS3, MG3, CK3 #### [address] [place] [facility] #### VD25H #### [facility] [address] [place] [address] Std Base Excess -1.9 mmol/L Normal -3.0-3.0 [facility] Comment on above: Performed By: #### H EMDF, PT, BMP3M, PHOS3, MG3, CK3 #### [address] [place] #### VD25H #### [facility] [address] [place] [address] FIO2 .30 Normal [facility] Comment on above: Performed By: #### H EMDF, PT, BMP3M, PHOS3, MG3, CK3 #### [address] [place] [address] [place] #### VD25H #### [facility] [address] [place] [address] Basic Metabolic Panelon 03-2 Calcium mass conc 8.1 mg/dL Low 8.4-10.4 [facility] Comment on above: Performed By: #### H EMDF, PT, BMP3M, PHOS3, MG3, CK3 #### [address] [place] [address] [place] #### VD25H #### [facility] [address] [place] [address] Anion gap molar conc 8 Normal [facility] Comment on above: Performed By: #### H EMDF, PT, BMP3M, PHOS3, MG3, CK3 #### [address] [place] [address] [place] #### VD25H #### [facility] [address] [place] [address] CO2 molar conc 24 mmol/L Normal 22-30 [facility] Comment on above: Performed By: #### H EMDF, PT, BMP3M, PHOS3, MG3, CK3 #### [address], [place] #### VD25H #### [facility] [address] [place] [address] Creatinine mass conc 0.55 mg/dL Normal 0.52-1.25 [facility] Comment on above: Performed By: #### H EMDF, PT, BMP3M, PHOS3, MG3, CK3 #### [address] [address] [place] [address] #### VD25H #### [facility] [address] [place] [address] GFR/1.73 sq M predicted among blacks MDRD vol rate/area (S/P/Bld) mL/min/{1.73_m2} Normal >60 [facility] Comment on above: Performed By: #### H EMDF, PT, BMP3M, PHOS3, MG3, CK3 #### [address] #### VD25H #### [facility] [address] [place] [address] GFR/1.73 sq M predicted among non-blacks MDRD vol rate/area (S/P/Bld) mL/min/{1.73_m2} Normal >60 [facility] Comment on above: Result Comment: Sour ce- MDRD equation with creatinine calibration to IDMS(NKDEP) eGFR not recommended for drug dose adjustment Performed By: #### H EMDF, PT, BMP3M, PHOS3, MG3, CK3 #### [address] #### VD25H #### [facility] [address] [place] [address] Glucose mass conc 184 mg/dL High 70-100 [facility] Comment on above: Performed By: #### H EMDF, PT, BMP3M, PHOS3, MG3, CK3 #### [address] #### VD25H #### [facility] [address] [place] [address] Urea nitrogen mass conc 20 mg/dL Normal 7-20 [facility] Comment on above: Performed By: #### H EMDF, PT, BMP3M, PHOS3, MG3, CK3 #### [address] [place] [address] #### VD25H #### [facility] [address] [place] [address] Chloride molar conc 109 mmol/L High 98-107 [facility] Comment on above: Performed By: #### H EMDF, PT, BMP3M, PHOS3, MG3, CK3 #### [facility] [address] [place] [address] #### VD25H #### [facility] [address] [place] [address] Potassium molar conc 4.0 mmol/L Normal 3.5-5.1 [facility] Comment on above: Performed By: #### H EMDF, PT, BMP3M, PHOS3, MG3, CK3 #### [facility] [address] [place] #### VD25H #### [facility] [address] [place] [address] Sodium molar conc 141 mmol/L Normal 135-145 [facility] Comment on above: Performed By: #### H EMDF, PT, BMP3M, PHOS3, MG3, CK3 #### [facility] [address] [place] #### VD25H #### [facility] [address] [place] [address] CR Chest Portableon 07-26-19 19 CR Chest Portable Patient Name: KATHYA HOOPER Diagnostic Radiology Exam Date/Time 07/25/2018 06:39:42 EDT Exam CR Chest Portable Ordering Physician MARIA EUGENIA PEREZ Accession Number [id number] CPT4 Codes 81327 () Reason For Exam ETT placement Report [...] RISA Transcribed Date and Time: 07/25/2018 7:45 [facility] CULTURE URINEon 07-25-2018 CULTURE URINE 1 [...] S Trimeth/Sulfa(CHRISTI) <= 20 S Normal [facility] Comment on above: Order Comment: Speci men Source Comment:Urine, clean catch Performed By: #### H EMDF, PT, BMP3M, PHOS3, MG3, CK3 #### [facility] [address] [place], [place] #### VD25H #### [facility] [address] [place] [address] Glucose,Bedsideon 07-25-2018 Glucose mass conc 140 mg/dL High 70-100 [facility] Comment on above: Result Comment: Test performed by glucose meter. Results may be 10%-15% lower than serum/plasma values. (CLIA ID [id number]) Performed By: #### H EMDF, PT, BMP3M, PHOS3, MG3, CK3 #### [facility] [address] [place] [address] #### VD25H #### [employer] [address] [place] [address] Glucose mass conc 158 mg/dL High 70-100 [facility] Comment on above: Result Comment: Test performed by glucose meter. Results may be 10%-15% lower than serum/plasma values. (CLIA ID [id number]) Performed By: #### H EMDF, PT, BMP3M, PHOS3, MG3, CK3 #### [facility] [facility] [address], [place] #### VD25H #### [facility] [address] [place] [address] Glucose mass conc 172 mg/dL High 70-100 [facility] Comment on above: Result Comment: Test performed by glucose meter. Results may be 10%-15% lower than serum/plasma values. (CLIA ID [id number]) Performed By: #### H EMDF, PT, BMP3M, PHOS3, MG3, CK3 #### [facility] [facility] [address], [place] #### VD25H #### [employer] [address] [place] [address] Glucose mass conc 169 mg/dL High 70-100 [facility] Comment on above: Result Comment: Test performed by glucose meter. Results may be 10%-15% lower than serum/plasma values. (CLIA ID [id number]) Performed By: #### H EMDF, PT, BMP3M, PHOS3, MG3, CK3 #### [address] #### VD25H #### [facility] [address] [place] [address] Glucose mass conc 165 mg/dL High 70-100 [facility] Comment on above: Result Comment: Test performed by glucose meter. Results may be 10%-15% lower than serum/plasma values. (CLIA ID [id number]) Performed By: #### H EMDF, PT, BMP3M, PHOS3, MG3, CK3 #### [address] #### VD25H #### [facility] [address] [place] [address] Hemogram w/ Autodiffon 07-25 Erythrocyte distribution width Ratio (RBC) 13.6 % Normal 11.5-14.5 [facility] Comment on above: Performed By: #### H EMDF, PT, BMP3M, PHOS3, MG3, CK3 #### [address] #### VD25H #### [facility] [address] [place] [address] Hematocrit Volume Fraction (Bld) 31.3 % Low 40.0-52.0 [facility] Comment on above: Performed By: #### H EMDF, PT, BMP3M, PHOS3, MG3, CK3 #### [address] #### VD25H #### [facility] [address] [place] [address] Hemoglobin mass conc (Bld) 10.6 g/dL Low 13.0-18.0 [facility] Comment on above: Performed By: #### H EMDF, PT, BMP3M, PHOS3, MG3, CK3 #### [place] [address] [place], [place] #### VD25H #### [facility] [address] [place] [address] MCH Entitic mass (RBC) 29.4 pg Normal 26.0-34.0 [facility] Comment on above: Performed By: #### H EMDF, PT, BMP3M, PHOS3, MG3, CK3 #### [place] [address] [place], [place] #### VD25H #### [facility] [address] [place] [address] MCHC mass conc (RBC) 33.8 % Normal 32.0-36.0 [facility] Comment on above: Performed By: #### H EMDF, PT, BMP3M, PHOS3, MG3, CK3 #### [address] #### VD25H #### [facility] [address] [place] [address] MCV Entitic volume (RBC) 86.9 fL Normal 80.0-98.0 [facility] Comment on above: Performed By: #### H EMDF, PT, BMP3M, PHOS3, MG3, CK3 #### [address] #### VD25H #### [facility] [address] [place] [address] Platelet mean volume Entitic volume (Bld) 8.3 fL Normal 7.4-10.4 [facility] Comment on above: Performed By: #### H EMDF, PT, BMP3M, PHOS3, MG3, CK3 #### [address] [place], [place] #### VD25H #### [facility] [address] [place] [address] Platelets #/vol (Bld) 360 10*3/uL Normal 140-440 [facility] Comment on above: Performed By: #### H EMDF, PT, BMP3M, PHOS3, MG3, CK3 #### [place] [address] [place] #### VD25H #### [facility] [address] [place] [address] RBC #/vol (Bld) 3.61 10*6/uL Low 4.40-5.90 [facility] Comment on above: Performed By: #### H EMDF, PT, BMP3M, PHOS3, MG3, CK3 #### [address] #### VD25H #### [facility] [address] [place] [address] WBC #/vol (Bld) 14.7 10*3/uL High 3.6-10.7 [facility] Comment on above: Performed By: #### H EMDF, PT, BMP3M, PHOS3, MG3, CK3 #### [address] #### VD25H #### [place] [address] [place] [address] Magnesiumon 07-25-2018 Magnesium mass conc 2.1 mg/dL Normal 1.6-2.3 [facility] Comment on above: Performed By: #### H EMDF, PT, BMP3M, PHOS3, MG3, CK3 #### [address] #### VD25H #### [place] [address] [place] [address] Manual Diffon 07-25-2018 Abs Baso Cnt 0.1 10*3/uL Normal 0.0-0.2 [facility] Comment on above: Performed By: #### H EMDF, PT, BMP3M, PHOS3, MG3, CK3 #### [address] #### VD25H #### [place] [address] [place] [address] Abs Neutrophile Cnt 12.9 10*3/uL High 2.2-8.2 [facility] Comment on above: Performed By: #### H EMDF, PT, BMP3M, PHOS3, MG3, CK3 #### [facility] [address] [place], [place] #### VD25H #### [facility] [address] [place] [address] Anisocytosis Ql (Bld) Slight Normal [facility] Comment on above: Performed By: #### H EMDF, PT, BMP3M, PHOS3, MG3, CK3 #### [facility] [address] [place] #### VD25H #### [facility] [address] [place] [address] Bands 4 % High 0-3 [facility] Comment on above: Performed By: #### H EMDF, PT, BMP3M, PHOS3, MG3, CK3 #### [facility] [address] [place] #### VD25H #### [facility] [address] [place] [address] Basophils/100 WBC (Bld) 1 % Normal 0-2 [facility] Comment on above: Performed By: #### H EMDF, PT, BMP3M, PHOS3, MG3, CK3 #### [place] [address] [place], [place] #### VD25H #### [facility] [address] [place] [address] Eosinophils #/vol (Bld) 0.6 10*3/uL High 0.0-0.5 [facility] Comment on above: Performed By: #### H EMDF, PT, BMP3M, PHOS3, MG3, CK3 #### [place] [address] [place] #### VD25H #### [facility] [address] [place] [address] Eosinophils/100 WBC (Bld) 4 % Normal 1-6 [facility] Comment on above: Performed By: #### H EMDF, PT, BMP3M, PHOS3, MG3, CK3 #### [facility] [address] [place] #### VD25H #### [facility] [address] [place] [address] Lymphocytes #/vol (Bld) 0.1 10*3/uL Low 1.1-4.5 [facility] Comment on above: Performed By: #### H EMDF, PT, BMP3M, PHOS3, MG3, CK3 #### [place] [address] [place] #### VD25H #### [facility] [address] [place] [address] Lymphocytes/100 WBC (Bld) 1 % Low 20-40 [facility] Comment on above: Performed By: #### H EMDF, PT, BMP3M, PHOS3, MG3, CK3 #### [place] [address] [place] #### VD25H #### [facility] [address] [place] [address] Macrocytosis Slight Normal [facility] Comment on above: Performed By: #### H EMDF, PT, BMP3M, PHOS3, MG3, CK3 #### [address] #### VD25H #### [facility] [address] [place] [address] Metamyelocytes 2 % Abnormal <1 [facility] Comment on above: Performed By: #### H EMDF, PT, BMP3M, PHOS3, MG3, CK3 #### [place] [address] [place] #### VD25H #### [facility] [address] [place] [address] Microcytosis Slight Normal [facility] Comment on above: Performed By: #### H EMDF, PT, BMP3M, PHOS3, MG3, CK3 #### [place] [address] [place] #### VD25H #### [facility] [address] [place] [address] Monocytes #/vol (Bld) 0.6 10*3/uL Normal 0.2-1.1 [facility] Comment on above: Performed By: #### H EMDF, PT, BMP3M, PHOS3, MG3, CK3 #### [facility] [address] [place] #### VD25H #### [facility] [address] [place] [address] Monocytes/100 WBC (Bld) 4 % Normal 2-10 [facility] Comment on above: Performed By: #### H EMDF, PT, BMP3M, PHOS3, MG3, CK3 #### [address] #### VD25H #### [facility] [address] [place] [address] RBC morphology finding Nom (Bld) ABNORMAL Normal [facility] Comment on above: Performed By: #### H EMDF, PT, BMP3M, PHOS3, MG3, CK3 #### [place] [address] [place] #### VD25H #### [facility] [address] [place] [address] Seg Neutrophils 84 % High 40-80 [facility] Comment on above: Performed By: #### H EMDF, PT, BMP3M, PHOS3, MG3, CK3 #### [place] [address] [place] #### VD25H #### [facility] [address] [place] [address] Cells counted 100 Normal [facility] Comment on above: Performed By: #### H EMDF, PT, BMP3M, PHOS3, MG3, CK3 #### [place] [address] [place] #### VD25H #### [facility] [address] [place] [address] Phosphoruson 07-25-2018 Phosphate mass conc 2.7 mg/dL Normal 2.5-4.5 [facility] Comment on above: Performed By: #### H EMDF, PT, BMP3M, PHOS3, MG3, CK3 #### [place] [address] [place] #### VD25H #### [facility] [address] [place] [address] Triglycerideon 07-25-2018 Triglyceride mass conc 82 mg/dL Normal <150 [facility] Comment on above: Performed By: #### H EMDF, PT, BMP3M, PHOS3, MG3, CK3 #### [address] #### VD25H #### [place] [address] [place] [address] Basic Metabolic Panelon 06-30 Calcium mass conc 8.0 mg/dL Low 8.4-10.4 [facility] Comment on above: Performed By: #### H EMDF, PT, BMP3M, PHOS3, MG3, CK3 #### [address] #### VD25H #### [place] [address] [place] [address] Anion gap molar conc 9 Normal [facility] Comment on above: Performed By: #### H EMDF, PT, BMP3M, PHOS3, MG3, CK3 #### [address] #### VD25H #### [facility] [address] [place] [address] CO2 molar conc 23 mmol/L Normal 22-30 [facility] Comment on above: Performed By: #### H EMDF, PT, BMP3M, PHOS3, MG3, CK3 #### [place] [address] [place] #### VD25H #### [facility] [address] [place] [address] Creatinine mass conc 0.71 mg/dL Normal 0.52-1.25 [facility] Comment on above: Performed By: #### H EMDF, PT, BMP3M, PHOS3, MG3, CK3 #### [facility] [address], [place] #### VD25H #### [facility] [address] [place] [address] GFR/1.73 sq M predicted among blacks MDRD vol rate/area (S/P/Bld) mL/min/{1.73_m2} Normal >60 [facility] Comment on above: Performed By: #### H EMDF, PT, BMP3M, PHOS3, MG3, CK3 #### [address] #### VD25H #### [facility] [address] [place] [address] GFR/1.73 sq M predicted among non-blacks MDRD vol rate/area (S/P/Bld) mL/min/{1.73_m2} Normal >60 [facility] Comment on above: Result Comment: Sour ce- MDRD equation with creatinine calibration to IDMS(NKDEP) eGFR not recommended for drug dose adjustment Performed By: #### H EMDF, PT, BMP3M, PHOS3, MG3, CK3 #### [address] #### VD25H #### [facility] [address] [place] [address] Glucose mass conc 160 mg/dL High 70-100 [facility] Comment on above: Performed By: #### H EMDF, PT, BMP3M, PHOS3, MG3, CK3 #### [address] #### VD25H #### [facility] [address] [place] [address] Urea nitrogen mass conc 28 mg/dL High 7-20 [facility] Comment on above: Performed By: #### H EMDF, PT, BMP3M, PHOS3, MG3, CK3 #### [facility] [address] [place] [facility] [place] [address] #### VD25H #### [facility] [address] [place] [address] Chloride molar conc 109 mmol/L High 98-107 [facility] Comment on above: Performed By: #### H EMDF, PT, BMP3M, PHOS3, MG3, CK3 #### [facility] [address] [facility] #### VD25H #### [facility] [address] [place] [address] Potassium molar conc 3.7 mmol/L Normal 3.5-5.1 [facility] Comment on above: Performed By: #### H EMDF, PT, BMP3M, PHOS3, MG3, CK3 #### [facility] [address] [facility] #### VD25H #### [facility] [address] [place] [address] Sodium molar conc 141 mmol/L Normal 135-145 [facility] Comment on above: Performed By: #### H EMDF, PT, BMP3M, PHOS3, MG3, CK3 #### [facility] [address] [facility] #### VD25H #### [facility] [address] [place] [address] CR Chest Portableon 07-25-19 19 CR Chest Portable Patient Name: KATHYA HOOPER Diagnostic Radiology Exam Date/Time 07/24/2018 13:12:47 EDT Exam CR Chest Portable Ordering Physician DO WOLFF KATHRYN C Accession Number [id number] CPT4 Codes 87188 () Reason For Exam line placement Report [...] ALFRED Transcribed Date and Time: 07/24/2018 3:10 [facility] CR Chest Portable Patient Name: KATHYA HOOPER Diagnostic Radiology Exam Date/Time 07/24/2018 07:11:26 EDT Exam CR Chest Portable Ordering Physician MARIA EUGENIA PEREZ Accession Number [id number] CPT4 Codes 07210 () Reason For Exam ETT placement Report [...] Date and Time: 07/24/2018 7:31 Normal [facility] CULT./ST. RESPIRATORYon - CULT./ST. RESPIRATORY CULT./ST. [...] 1 S Trimeth/Sulfa(CHRISTI) <= 20 S Normal [facility] Comment on above: Order Comment: Speci men Source Comment:Endotracheal Performed By: #### H EMDF, PT, BMP3M, PHOS3, MG3, CK3 #### [facility] [address] [place] [address] #### VD25H #### [facility] [address] [place] [place] [address] CULTURE URINEon 07-24-2018 CULTURE URINE 1 Organism [...] S Normal [facility] Comment on above: Order Comment: Speci men Source Comment:Urine, clean catch Performed By: #### H EMDF, PT, BMP3M, PHOS3, MG3, CK3 #### [facility] [address] [place] [id number] #### VD25H #### [facility] [address] [place] [address] Creatinine, Ur Randomon 06-30 Creatinine, Ur Random 49.5 mg/dL Normal No Range [facility] Comment on above: Performed By: #### H EMDF, PT, BMP3M, PHOS3, MG3, CK3 #### [address] #### VD25H #### [facility] [address] [place] [address] Glucose,Bedsideon 07-24-2018 Glucose mass conc 124 mg/dL High 70-100 [facility] Comment on above: Result Comment: Test performed by glucose meter. Results may be 10%-15% lower than serum/plasma values. (CLIA ID [id number]) Performed By: #### H EMDF, PT, BMP3M, PHOS3, MG3, CK3 #### [address] #### VD25H #### [facility] [address] [place] [address] Glucose mass conc 152 mg/dL High 70-100 [facility] Comment on above: Result Comment: Test performed by glucose meter. Results may be 10%-15% lower than serum/plasma values. (CLIA ID [id number]) Performed By: #### H EMDF, PT, BMP3M, PHOS3, MG3, CK3 #### [address] #### VD25H #### [facility] [address] [place] [address] Glucose mass conc 149 mg/dL High 70-100 [facility] Comment on above: Result Comment: Test performed by glucose meter. Results may be 10%-15% lower than serum/plasma values. (CLIA ID [id number]) Performed By: #### H EMDF, PT, BMP3M, PHOS3, MG3, CK3 #### [facility] [place] [address] #### VD25H #### [place] [address] [place] [address] Hemogram w/ Autodiffon 07-24 Erythrocyte distribution width Ratio (RBC) 13.7 % Normal 11.5-14.5 [facility] Comment on above: Performed By: #### H EMDF, PT, BMP3M, PHOS3, MG3, CK3 #### [place] [address] [place], [place] #### VD25H #### [facility] [address] [place] [address] Hematocrit Volume Fraction (Bld) 31.4 % Low 40.0-52.0 [facility] Comment on above: Performed By: #### H EMDF, PT, BMP3M, PHOS3, MG3, CK3 #### [address] #### VD25H #### [place] [address] [place] [address] Hemoglobin mass conc (Bld) 10.7 g/dL Low 13.0-18.0 [facility] Comment on above: Performed By: #### H EMDF, PT, BMP3M, PHOS3, MG3, CK3 #### [address] [place], [place] #### VD25H #### [place] [address] [place] [address] MCH Entitic mass (RBC) 29.4 pg Normal 26.0-34.0 [facility] Comment on above: Performed By: #### H EMDF, PT, BMP3M, PHOS3, MG3, CK3 #### [address] #### VD25H #### [place] [address] [place] [address] MCHC mass conc (RBC) 33.9 % Normal 32.0-36.0 [facility] Comment on above: Performed By: #### H EMDF, PT, BMP3M, PHOS3, MG3, CK3 #### [address] [place], [place] #### VD25H #### [facility] [address] [place] [address] MCV Entitic volume (RBC) 86.8 fL Normal 80.0-98.0 [facility] Comment on above: Performed By: #### H EMDF, PT, BMP3M, PHOS3, MG3, CK3 #### [address] [place] #### VD25H #### [facility] [address] [place] [address] Platelet mean volume Entitic volume (Bld) 8.6 fL Normal 7.4-10.4 [facility] Comment on above: Performed By: #### H EMDF, PT, BMP3M, PHOS3, MG3, CK3 #### [address] #### VD25H #### [facility] [address] [place] [address] Platelets #/vol (Bld) 304 10*3/uL Normal 140-440 [facility] Comment on above: Performed By: #### H EMDF, PT, BMP3M, PHOS3, MG3, CK3 #### [address] #### VD25H #### [facility] [address] [place] [address] RBC #/vol (Bld) 3.62 10*6/uL Low 4.40-5.90 [facility] Comment on above: Performed By: #### H EMDF, PT, BMP3M, PHOS3, MG3, CK3 #### [address] #### VD25H #### [facility] [address] [place] [address] WBC #/vol (Bld) 14.0 10*3/uL High 3.6-10.7 [facility] Comment on above: Performed By: #### H EMDF, PT, BMP3M, PHOS3, MG3, CK3 #### [address] [place], [place] #### VD25H #### [facility] [address] [place] [address] Magnesiumon 07-24-2018 Magnesium mass conc 2.2 mg/dL Normal 1.6-2.3 [facility] Comment on above: Performed By: #### H EMDF, PT, BMP3M, PHOS3, MG3, CK3 #### [address] #### VD25H #### [facility] [address] [place] [address] Manual Diffon 07-24-2018 Abs Baso Cnt 0.0 10*3/uL Normal 0.0-0.2 [facility] Comment on above: Performed By: #### H EMDF, PT, BMP3M, PHOS3, MG3, CK3 #### [address] #### VD25H #### [facility] [address] [place] [address] Abs Neutrophile Cnt 12.2 10*3/uL High 2.2-8.2 [facility] Comment on above: Performed By: #### H EMDF, PT, BMP3M, PHOS3, MG3, CK3 #### [address] [place] #### VD25H #### [facility] [address] [place] [address] Eosinophils #/vol (Bld) 0.4 10*3/uL Normal 0.0-0.5 [facility] Comment on above: Performed By: #### H EMDF, PT, BMP3M, PHOS3, MG3, CK3 #### [address] #### VD25H #### [facility] [address] [place] [address] Eosinophils/100 WBC (Bld) 3 % Normal 1-6 [facility] Comment on above: Performed By: #### H EMDF, PT, BMP3M, PHOS3, MG3, CK3 #### [facility] [address] [place] #### VD25H #### [facility] [address] [place] [address] Lymphocytes #/vol (Bld) 1.0 10*3/uL Low 1.1-4.5 [facility] Comment on above: Performed By: #### H EMDF, PT, BMP3M, PHOS3, MG3, CK3 #### [place] [address] [place] #### VD25H #### [facility] [address] [place] [address] Lymphocytes/100 WBC (Bld) 7 % Low 20-40 [facility] Comment on above: Performed By: #### H EMDF, PT, BMP3M, PHOS3, MG3, CK3 #### [place] [address] [place] #### VD25H #### [facility] [address] [place] [address] Monocytes #/vol (Bld) 0.4 10*3/uL Normal 0.2-1.1 [facility] Comment on above: Performed By: #### H EMDF, PT, BMP3M, PHOS3, MG3, CK3 #### [place] [address] [place] #### VD25H #### [facility] [address] [place] [address] Monocytes/100 WBC (Bld) 3 % Normal 2-10 [facility] Comment on above: Performed By: #### H EMDF, PT, BMP3M, PHOS3, MG3, CK3 #### [place] [address] [place] #### VD25H #### [facility] [address] [place] [address] RBC morphology finding Nom (Bld) Normal Normal [facility] Comment on above: Performed By: #### H EMDF, PT, BMP3M, PHOS3, MG3, CK3 #### [facility] [address] [place] #### VD25H #### [facility] [address] [place] [address] Seg Neutrophils 87 % High 40-80 [facility] Comment on above: Performed By: #### H EMDF, PT, BMP3M, PHOS3, MG3, CK3 #### [place] [address] [place] #### VD25H #### [facility] [address] [place] [address] Bands 0 % Normal 0-3 [facility] Comment on above: Performed By: #### H EMDF, PT, BMP3M, PHOS3, MG3, CK3 #### [place] [address] [place] #### VD25H #### [facility] [address] [place] [address] Basophils/100 WBC (Bld) 0 % Normal 0-2 [facility] Comment on above: Performed By: #### H EMDF, PT, BMP3M, PHOS3, MG3, CK3 #### [place] [address] [place] #### VD25H #### [facility] [address] [place] [address] Cells counted 100 Normal [facility] Comment on above: Performed By: #### H EMDF, PT, BMP3M, PHOS3, MG3, CK3 #### [address] [place], [place] #### VD25H #### [facility] [address] [place] [address] Phosphoruson 07-24-2018 Phosphate mass conc 2.7 mg/dL Normal 2.5-4.5 [facility] Comment on above: Performed By: #### H EMDF, PT, BMP3M, PHOS3, MG3, CK3 #### [place] [address] [place] #### VD25H #### [facility] [address] [place] [address] Triglycerideon 07-24-2018 Triglyceride mass conc 78 mg/dL Normal <150 [facility] Comment on above: Performed By: #### H EMDF, PT, BMP3M, PHOS3, MG3, CK3 #### [place] [address] [place] #### VD25H #### [place] [address] [place] [address] Urea Nitrogen,Ur Randomon Urea nitrogen mass conc 1199 mg/dL Normal No Range [facility] Comment on above: Performed By: #### H EMDF, PT, BMP3M, PHOS3, MG3, CK3 #### [place] [address] [place] #### VD25H #### [facility] [address] [place] [address] Add on test from HISon 07-23 Add on test from [facility] Accepted Normal [facility] Comment on above: Result Comment: Spec imen available & acceptable for analysis. Performed By: #### H EMDF, PT, BMP3M, PHOS3, MG3, CK3 #### [place] [address] [place] #### VD25H #### [place] [address] [place] [place] [address] Arterial Blood Gaseson 07-23 CO2 molar conc 23.0 mmol/L Normal 23.0-27.0 [facility] Comment on above: Performed By: #### H EMDF, PT, BMP3M, PHOS3, MG3, CK3 #### [address] #### VD25H #### [place] [address] [place] [address] HCO3 molar conc (Bld) 22.0 mmol/L Normal 21.0-25.0 [facility] Comment on above: Performed By: #### H EMDF, PT, BMP3M, PHOS3, MG3, CK3 #### [facility] [address] [place], [place] #### VD25H #### [facility] [address] [place] [address] Hemoglobin mass conc (Bld) 10.9 g/dL Normal ScreenOnly [facility] Comment on above: Performed By: #### H EMDF, PT, BMP3M, PHOS3, MG3, CK3 #### [place] [address] [place] #### VD25H #### [facility] [address] [place] [address] Oxygen ppres (Bld) 102.4 mm[Hg] High 80.0-100.0 [facility] Comment on above: Performed By: #### H EMDF, PT, BMP3M, PHOS3, MG3, CK3 #### [place] [address] [address] [place], [place] #### VD25H #### [facility] [address] [place] [address] Oxygen saturation in Blood 97.7 % Normal 95.0-100.0 [facility] Comment on above: Performed By: #### H EMDF, PT, BMP3M, PHOS3, MG3, CK3 #### [place] [address] [place], [place] #### VD25H #### [facility] [address] [place] [address] pCO2 34.4 mm[Hg] Low 35.0-45.0 [facility] Comment on above: Performed By: #### H EMDF, PT, BMP3M, PHOS3, MG3, CK3 #### [place] [address] [place], [place] #### VD25H #### [facility] [address] [place] [address] pH (Bld) 7.423 Normal 7.350-7.450 [facility] Comment on above: Performed By: #### H EMDF, PT, BMP3M, PHOS3, MG3, CK3 #### [facility] [address] [place] #### VD25H #### [facility] [address] [place] [address] Std Base Excess -1.9 mmol/L Normal -3.0-3.0 [facility] Comment on above: Performed By: #### H EMDF, PT, BMP3M, PHOS3, MG3, CK3 #### [place] [address] [place], [place] #### VD25H #### [facility] [address] [place] [address] FIO2 .30 Normal [facility] Comment on above: Performed By: #### H EMDF, PT, BMP3M, PHOS3, MG3, CK3 #### [facility] [address] [place] #### VD25H #### [facility] [address] [place] [address] Basic Metabolic Panelon 06-30 Anion gap molar conc 12 Normal [facility] Comment on above: Performed By: #### H EMDF, PT, BMP3M, PHOS3, MG3, CK3 #### [place] [address] [place] #### VD25H #### [facility] [address] [place] [address] Calcium mass conc 7.5 mg/dL Low 8.4-10.4 [facility] Comment on above: Performed By: #### H EMDF, PT, BMP3M, PHOS3, MG3, CK3 #### [facility] [address] [facility] #### VD25H #### [facility] [address] [place] [address] CO2 molar conc 23 mmol/L Normal 22-30 [facility] Comment on above: Performed By: #### H EMDF, PT, BMP3M, PHOS3, MG3, CK3 #### [facility] [address] [place] #### VD25H #### [facility] [address] [place] [address] Glucose mass conc 148 mg/dL High 70-100 [facility] Comment on above: Performed By: #### H EMDF, PT, BMP3M, PHOS3, MG3, CK3 #### [place] [address] [place] #### VD25H #### [facility] [address] [place] [address] Urea nitrogen mass conc 82 mg/dL High 7-20 [facility] Comment on above: Performed By: #### H EMDF, PT, BMP3M, PHOS3, MG3, CK3 #### [address] #### VD25H #### [facility] [address] [place] [address] Creatinine mass conc 3.01 mg/dL High 0.52-1.25 [facility] Comment on above: Performed By: #### H EMDF, PT, BMP3M, PHOS3, MG3, CK3 #### [place] [address] [place], [place] #### VD25H #### [facility] [address] [place] [address] GFR/1.73 sq M predicted among blacks MDRD vol rate/area (S/P/Bld) 25.8 mL/min/{1.73_m2} Normal >60 [facility] Comment on above: Performed By: #### H EMDF, PT, BMP3M, PHOS3, MG3, CK3 #### [address] #### VD25H #### [facility] [address] [place] [address] GFR/1.73 sq M predicted among non-blacks MDRD vol rate/area (S/P/Bld) 21.3 mL/min/{1.73_m2} Normal >60 [facility] Comment on above: Result Comment: Sour ce- MDRD equation with creatinine calibration to IDMS(NKDEP) eGFR not recommended for drug dose adjustment Performed By: #### H EMDF, PT, BMP3M, PHOS3, MG3, CK3 #### [facility] [address] [place] #### VD25H #### [facility] [address] [place] [address] Chloride molar conc 106 mmol/L Normal 98-107 [facility] Comment on above: Performed By: #### H EMDF, PT, BMP3M, PHOS3, MG3, CK3 #### [address] #### VD25H #### [facility] [address] [place] [address] Potassium molar conc 4.2 mmol/L Normal 3.5-5.1 [facility] Comment on above: Performed By: #### H EMDF, PT, BMP3M, PHOS3, MG3, CK3 #### [facility] [address] [place] #### VD25H #### [facility] [address] [place] [address] Sodium molar conc 141 mmol/L Normal 135-145 [facility] Comment on above: Performed By: #### H EMDF, PT, BMP3M, PHOS3, MG3, CK3 #### [address] #### VD25H #### [facility] [address] [place] [address] CR Chest Portableon 07-24-19 19 CR Chest Portable Patient Name: KATHYA HOOPER Diagnostic Radiology Exam Date/Time 07/23/2018 07:06:03 EDT Exam CR Chest Portable Ordering Physician MARIA EUGENIA PEREZ Accession Number [id number] CPT4 Codes 26588 () Reason For Exam ETT placement Report [...] Date and Time: 07/23/2018 7:58 Normal [facility] Creatinine, Ur Randomon 06-30 Creatinine, Ur Random 56.8 mg/dL Normal No Range [facility] Comment on above: Performed By: #### H EMDF, PT, BMP3M, PHOS3, MG3, CK3 #### [facility] [address] [place], [place] #### VD25H #### [facility] [address] [place] [address] Glucose,Bedsideon 07-23-2018 Glucose mass conc 116 mg/dL High 70-100 [facility] Comment on above: Result Comment: Test performed by glucose meter. Results may be 10%-15% lower than serum/plasma values. (CLIA ID [id number]) Performed By: #### H EMDF, PT, BMP3M, PHOS3, MG3, CK3 #### [facility] [address] [place] [address] #### VD25H #### [facility] [address] [place] [address] Glucose mass conc 139 mg/dL High 70-100 [facility] Comment on above: Result Comment: Test performed by glucose meter. Results may be 10%-15% lower than serum/plasma values. (CLIA ID [id number]) Performed By: #### H EMDF, PT, BMP3M, PHOS3, MG3, CK3 #### [address] #### VD25H #### [facility] [address] [place], [place] Glucose mass conc 140 mg/dL High 70-100 [facility] Comment on above: Result Comment: Test performed by glucose meter. Results may be 10%-15% lower than serum/plasma values. (CLIA ID [id number]) Performed By: #### H EMDF, PT, BMP3M, PHOS3, MG3, CK3 #### [address] #### VD25H #### [place] [address] [place] [address] Glucose mass conc 140 mg/dL High 70-100 [facility] Comment on above: Result Comment: Test performed by glucose meter. Results may be 10%-15% lower than serum/plasma values. (CLIA ID [id number]) Performed By: #### H EMDF, PT, BMP3M, PHOS3, MG3, CK3 #### [address] #### VD25H #### [facility] [address] [place] [address] Hemogram w/ Autodiffon 07-23 Abs Baso Cnt 0.0 10*3/uL Normal 0.0-0.2 [facility] Comment on above: Performed By: #### H EMDF, PT, BMP3M, PHOS3, MG3, CK3 #### [address] #### VD25H #### [facility] [address] [place], [place] Abs Neutrophile Cnt 16.2 10*3/uL High 1.8-7.0 [facility] Comment on above: Performed By: #### H EMDF, PT, BMP3M, PHOS3, MG3, CK3 #### [facility] [address] [place] #### VD25H #### [facility] [address] [place] [address] Basophils/100 WBC (Bld) 0.3 % Normal 0.0-2.0 [facility] Comment on above: Performed By: #### H EMDF, PT, BMP3M, PHOS3, MG3, CK3 #### [place] [address] [place], [place] #### VD25H #### [facility] [address] [place] [address] Eosinophils #/vol (Bld) 0.2 10*3/uL Normal 0.0-0.5 [facility] Comment on above: Performed By: #### H EMDF, PT, BMP3M, PHOS3, MG3, CK3 #### [address] #### VD25H #### [facility] [address] [place] [address] Eosinophils/100 WBC (Bld) 1.2 % Normal 1.0-6.0 [facility] Comment on above: Performed By: #### H EMDF, PT, BMP3M, PHOS3, MG3, CK3 #### [address] [place], [place] #### VD25H #### [facility] [address] [place] [address] Erythrocyte distribution width Ratio (RBC) 13.9 % Normal 11.5-14.5 [facility] Comment on above: Performed By: #### H EMDF, PT, BMP3M, PHOS3, MG3, CK3 #### [address] #### VD25H #### [facility] [address] [place] [address] Granulocytes/100 WBC (Bld) 86.8 % High 40.0-80.0 [facility] Comment on above: Performed By: #### H EMDF, PT, BMP3M, PHOS3, MG3, CK3 #### [facility] [address] [place] #### VD25H #### [facility] [address] [place] [address] Hematocrit Volume Fraction (Bld) 26.7 % Low 40.0-52.0 [facility] Comment on above: Performed By: #### H EMDF, PT, BMP3M, PHOS3, MG3, CK3 #### [place] [address] [place] #### VD25H #### [facility] [address] [place] [address] Hemoglobin mass conc (Bld) 8.9 g/dL Low 13.0-18.0 [facility] Comment on above: Performed By: #### H EMDF, PT, BMP3M, PHOS3, MG3, CK3 #### [place] [address] [place] #### VD25H #### [facility] [address] [place] [address] Lymphocytes #/vol (Bld) 1.2 10*3/uL Normal 1.0-4.3 [facility] Comment on above: Performed By: #### H EMDF, PT, BMP3M, PHOS3, MG3, CK3 #### [place] [address] [place] #### VD25H #### [facility] [address] [place] [address] Lymphocytes/100 WBC (Bld) 6.6 % Low 20.0-40.0 [facility] Comment on above: Performed By: #### H EMDF, PT, BMP3M, PHOS3, MG3, CK3 #### [place] [address] [place] #### VD25H #### [facility] [address] [place] [address] MCH Entitic mass (RBC) 29.5 pg Normal 26.0-34.0 [facility] Comment on above: Performed By: #### H EMDF, PT, BMP3M, PHOS3, MG3, CK3 #### [address] #### VD25H #### [facility] [address] [place] [address] MCHC mass conc (RBC) 33.5 % Normal 32.0-36.0 [facility] Comment on above: Performed By: #### H EMDF, PT, BMP3M, PHOS3, MG3, CK3 #### [address] #### VD25H #### [place] [address] [place] [address] MCV Entitic volume (RBC) 87.9 fL Normal 80.0-98.0 [facility] Comment on above: Performed By: #### H EMDF, PT, BMP3M, PHOS3, MG3, CK3 #### [address] #### VD25H #### [place] [address] [place] [address] Monocytes #/vol (Bld) 1.0 10*3/uL High 0.0-0.8 [facility] Comment on above: Performed By: #### H EMDF, PT, BMP3M, PHOS3, MG3, CK3 #### [address] #### VD25H #### [place] [address] [place] [address] Monocytes/100 WBC (Bld) 5.1 % Normal 2.0-10.0 [facility] Comment on above: Performed By: #### H EMDF, PT, BMP3M, PHOS3, MG3, CK3 #### [address] #### VD25H #### [place] [address] [place] [address] Platelet mean volume Entitic volume (Bld) 8.2 fL Normal 7.4-10.4 [facility] Comment on above: Performed By: #### H EMDF, PT, BMP3M, PHOS3, MG3, CK3 #### [address] #### VD25H #### [facility] [address] [place] [address] Platelets #/vol (Bld) 294 10*3/uL Normal 140-440 [facility] Comment on above: Performed By: #### H EMDF, PT, BMP3M, PHOS3, MG3, CK3 #### [address] #### VD25H #### [place] [address] [place] [address] RBC #/vol (Bld) 3.03 10*6/uL Low 4.40-5.90 [facility] Comment on above: Performed By: #### H EMDF, PT, BMP3M, PHOS3, MG3, CK3 #### [address] #### VD25H #### [place] [address] [place] [address] WBC #/vol (Bld) 18.7 10*3/uL High 3.6-10.7 [facility] Comment on above: Performed By: #### H EMDF, PT, BMP3M, PHOS3, MG3, CK3 #### [address] #### VD25H #### [place] [address] [place] [address] LDHon 07-23-2018 LDH 342 U/L High 65-175 [facility] Comment on above: Performed By: #### H EMDF, PT, BMP3M, PHOS3, MG3, CK3 #### [address] [place], [place] #### VD25H #### [facility] [address] [place] [address] Magnesiumon 07-23-2018 Magnesium mass conc 2.5 mg/dL High 1.6-2.3 [facility] Comment on above: Performed By: #### H EMDF, PT, BMP3M, PHOS3, MG3, CK3 #### [facility] [address] [place], [place] #### VD25H #### [facility] [address] [place] [address] Phosphoruson 07-23-2018 Phosphate mass conc 4.5 mg/dL Normal 2.5-4.5 [facility] Comment on above: Performed By: #### H EMDF, PT, BMP3M, PHOS3, MG3, CK3 #### [place] [address] [place] #### VD25H #### [facility] [address] [place] [address] Protein, Total Body Fluidon 07-23-2018 Protein,Total-Body Fld 2.7 g/dL Normal No Range [facility] Comment on above: Performed By: #### H EMDF, PT, BMP3M, PHOS3, MG3, CK3 #### [place] [address] [place] #### VD25H #### [facility] [address] [place] [address] Triglycerideon 07-23-2018 Triglyceride mass conc 63 mg/dL Normal <150 [facility] Comment on above: Performed By: #### H EMDF, PT, BMP3M, PHOS3, MG3, CK3 #### [place] [address] [place] #### VD25H #### [facility] [address] [place] [address] Urea Nitrogen,Ur Randomon Urea nitrogen mass conc 677 mg/dL Normal No Range [facility] Comment on above: Performed By: #### H EMDF, PT, BMP3M, PHOS3, MG3, CK3 #### [facility] [address] [place] #### VD25H #### [facility] [address] [place] [address] Urinalysis,Macroon 9 Appearance Nom (U) cloudy Normal Clear [facility] Comment on above: Performed By: #### H EMDF, PT, BMP3M, PHOS3, MG3, CK3 #### [place] [address] [place] #### VD25H #### [facility] [address] [place] [address] Bilirubin,Ur Negative Normal Negative [facility] Comment on above: Performed By: #### H EMDF, PT, BMP3M, PHOS3, MG3, CK3 #### [place] [address] [place] #### VD25H #### [facility] [address] [place] [address] Color Nom (U) dk.yel Normal Lt. Yellow [facility] Comment on above: Performed By: #### H EMDF, PT, BMP3M, PHOS3, MG3, CK3 #### [address] #### VD25H #### [facility] [address] [place] [address] Glucose Ql (U) NORM Normal Negative [facility] Comment on above: Performed By: #### H EMDF, PT, BMP3M, PHOS3, MG3, CK3 #### [address] #### VD25H #### [facility] [address] [place] [address] Ketone,Urine Negative Normal Negative [facility] Comment on above: Performed By: #### H EMDF, PT, BMP3M, PHOS3, MG3, CK3 #### [address] #### VD25H #### [facility] [address] [place] [address] Nitrite Ql (U) Negative Normal Negative [facility] Comment on above: Performed By: #### H EMDF, PT, BMP3M, PHOS3, MG3, CK3 #### [place] [address] [place] #### VD25H #### [facility] [address] [place] [address] Occult Blood,Ur 250 {RBC}/uL Normal Negative [facility] Comment on above: Performed By: #### H EMDF, PT, BMP3M, PHOS3, MG3, CK3 #### [address] [place], [place] #### VD25H #### [facility] [address] [place] [address] pH (U) 5.0 Normal 5.0-8.0 [facility] Comment on above: Performed By: #### H EMDF, PT, BMP3M, PHOS3, MG3, CK3 #### [place] [address] [place] #### VD25H #### [facility] [address] [place] [address] Protein mass conc (U) 75 mg/dL Normal Negative [facility] Comment on above: Performed By: #### H EMDF, PT, BMP3M, PHOS3, MG3, CK3 #### [place] [address] [place] #### VD25H #### [facility] [address] [place] [address] Specific Gardner,Urine 1.015 Normal 1.005-1.030 [facility] Comment on above: Performed By: #### H EMDF, PT, BMP3M, PHOS3, MG3, CK3 #### [place] [address] [place] #### VD25H #### [facility] [address] [place] [address] Urobilinogen Qn (U) NORM Normal 0-1 [facility] Comment on above: Performed By: #### H EMDF, PT, BMP3M, PHOS3, MG3, CK3 #### [address] #### VD25H #### [facility] [address] [place] [address] WBC #/vol (Bld) 2 + Normal Negative [facility] Comment on above: Performed By: #### H EMDF, PT, BMP3M, PHOS3, MG3, CK3 #### [address] #### VD25H #### [place] [address] [place] [address] Urinalysis,Microscopicon Bacteria LM.HPF #/area (Urine sed) Moderate (6-50) Normal Negative [facility] Comment on above: Performed By: #### H EMDF, PT, BMP3M, PHOS3, MG3, CK3 #### [address] #### VD25H #### [facility] [address] [place] [address] Epithelial cells LM.HPF #/area (Urine sed) 0 - 2 Normal 3-5 [facility] Comment on above: Performed By: #### H EMDF, PT, BMP3M, PHOS3, MG3, CK3 #### [address] #### VD25H #### [facility] [address] [place] [address] RBC LM.HPF #/area (Urine sed) /[HPF] Normal 0-2 [facility] Comment on above: Performed By: #### H EMDF, PT, BMP3M, PHOS3, MG3, CK3 #### [address] #### VD25H #### [facility] [address] [place] [address] Volume,Urine 8-12 ml Normal [facility] Comment on above: Performed By: #### H EMDF, PT, BMP3M, PHOS3, MG3, CK3 #### [facility] [address] [place] [address] #### VD25H #### [facility] [address] [place] [address] WBC LM.HPF #/area (Urine sed) 26 - 50 Normal 0-5 [facility] Comment on above: Performed By: #### H EMDF, PT, BMP3M, PHOS3, MG3, CK3 #### [facility] [address] [place] [address] #### VD25H #### [facility] [address] [place] [address] VL Venous Duplex US Lower Ex t Bilateralon 07-23-2018 VL Venous Duplex US Lower Ext Bilateral Patient Name: KATHYA HOOPER Ultrasound Exam Date/Time 07/23/2018 11:16:11 EDT Exam VL Venous Duplex US Lower Ext Bilateral Ordering Physician ETIENNE MARTÍNEZ JULIE Accession Number [id number] CPT4 Codes 04473 () Reason For Exam edema Report [facility] --- Lower Extremity Venous Duplex Report Patient Name: Kathya Hooper : 1955 Study Date: 07/23/2018 W (63yrs) Age: 63 Account: [id number] Gender: M Loc: T209 BP: Ordering: Yesenia Martínez Technologist: Ordering Physician: Yesenia Martínez Software Architect: León Chaidez RVT, [facility] Interpreting Physician: Vamsi York MD [...] performed. The images were obtained using a [employer] E9 vascular ultrasound machine. --- VENOUS FLOW [...] --+ Electronically signed by: Vamsi York MD [id number] Final Dictated: 07/23/2018 3:00 pm Dictating Physician: VAMSI YORK Signed Date and Time: 07/23/2018 3:00 pm Signed by: VAMSI YORK Normal [facility] Vancomycin Troughon 07-24-19 Vancomycin Trough 10.8 ug/mL Low 15.0-20.0 [facility] Comment on above: Result Comment: . Performed By: #### H EMDF, PT, BMP3M, PHOS3, MG3, CK3 #### [place] [address] [place], [place] #### VD25H #### [facility] [address] [place] [address] Basic Metabolic Panelon 06-30 Calcium mass conc 7.9 mg/dL Low 8.4-10.4 [facility] Comment on above: Performed By: #### H EMDF, PT, BMP3M, PHOS3, MG3, CK3 #### [address] #### VD25H #### [facility] [address] [place] [address] Anion gap molar conc 11 Normal [facility] Comment on above: Performed By: #### H EMDF, PT, BMP3M, PHOS3, MG3, CK3 #### [address] [place], [place] #### VD25H #### [facility] [address] [place] [address] CO2 molar conc 28 mmol/L Normal 22-30 [facility] Comment on above: Performed By: #### H EMDF, PT, BMP3M, PHOS3, MG3, CK3 #### [facility] [address] [place] #### VD25H #### [facility] [address] [place] [address] Glucose mass conc 134 mg/dL High 70-100 [facility] Comment on above: Performed By: #### H EMDF, PT, BMP3M, PHOS3, MG3, CK3 #### [place] [address] [facility] #### VD25H #### [facility] [address] [place] [address] Urea nitrogen mass conc 51 mg/dL High 7-20 [facility] Comment on above: Performed By: #### H EMDF, PT, BMP3M, PHOS3, MG3, CK3 #### [place] [address] [place] #### VD25H #### [facility] [address] [place] [address] Creatinine mass conc 1.57 mg/dL High 0.52-1.25 [facility] Comment on above: Performed By: #### H EMDF, PT, BMP3M, PHOS3, MG3, CK3 #### [place] [address] [place], [place] #### VD25H #### [facility] [address] [place] [address] GFR/1.73 sq M predicted among blacks MDRD vol rate/area (S/P/Bld) 54.6 mL/min/{1.73_m2} Normal >60 [facility] Comment on above: Performed By: #### H EMDF, PT, BMP3M, PHOS3, MG3, CK3 #### [address] [place], [place] #### VD25H #### [facility] [address] [place] [address] GFR/1.73 sq M predicted among non-blacks MDRD vol rate/area (S/P/Bld) 45.1 mL/min/{1.73_m2} Normal >60 [facility] Comment on above: Result Comment: Sour ce- MDRD equation with creatinine calibration to IDMS(NKDEP) eGFR not recommended for drug dose adjustment Performed By: #### H EMDF, PT, BMP3M, PHOS3, MG3, CK3 #### [facility] [address] [place] [address] #### VD25H #### [facility] [address] [place] [place] [address] Chloride molar conc 107 mmol/L Normal 98-107 [facility] Comment on above: Performed By: #### H EMDF, PT, BMP3M, PHOS3, MG3, CK3 #### [place] [address] [place], [place] #### VD25H #### [facility] [address] [place] [address] Potassium molar conc 3.8 mmol/L Normal 3.5-5.1 [facility] Comment on above: Performed By: #### H EMDF, PT, BMP3M, PHOS3, MG3, CK3 #### [place] [address] [place] [facility] [place] [address] #### VD25H #### [facility] [address] [place] [address] Sodium molar conc 146 mmol/L High 135-145 [facility] Comment on above: Performed By: #### H EMDF, PT, BMP3M, PHOS3, MG3, CK3 #### [place] [address] [address] [facility] #### VD25H #### [facility] [address] [place] [address] CR Abdomen APon 07-22-2018 CR Abdomen AP Patient Name: KATHYA HOOPER Diagnostic Radiology Exam Date/Time 07/22/2018 08:02:02 EDT Exam CR Abdomen AP Ordering Physician MARIA EUGENIA PEREZ Accession Number [id number] CPT4 Codes 26540 () Reason For Exam ileus Report Supine [...] Date and Time: 07/22/2018 9:28 Normal [facility] CR Chest Portableon 07-23-19 19 CR Chest Portable Patient Name: KATHYA HOOPER Diagnostic Radiology Exam Date/Time 07/22/2018 16:32:15 EDT Exam CR Chest Portable Ordering Physician MD NATE, [facility] Accession Number [id number] CPT4 Codes 29136 () Reason For Exam Thoracentesis Report Clinical [...] Date and Time: 07/22/2018 6:46 Normal [facility] CR Chest Portable Patient Name: KATHYA HOOPER Diagnostic Radiology Exam Date/Time 07/22/2018 06:49:22 EDT Exam CR Chest Portable Ordering Physician MARIA EUGENIA PEREZ Accession Number [id number] CPT4 Codes 07022 () Reason For Exam ETT placement Report [...] Date and Time: 07/22/2018 9:31 Normal [facility] CULTURE AND STAIN - FLUIDon 07-22-2018 CULTURE AND STAIN - FLUID CULTURE & STAIN - FLUID --> Status: F No growth at 5 days. STAIN GRAM --> Status: F Moderate polymorphonuclear cells/lpf. Moderate mononuclear cells/lpf No organisms seen. Cytocentrifugation performed. Moderate mononuclear cells/lpf No organisms seen. Cytocentrifugation performed. Normal [facility] Comment on above: Order Comment: Speci men Source Comment:Body Fluid Performed By: #### H EMDF, PT, BMP3M, PHOS3, MG3, CK3 #### [facility] [address] [place] [address] #### VD25H #### [facility] [address] [place] [address] Cell Count,Body Fluidon 06-30 Nucleated Cells 259 {cells}/uL Normal [facility] Comment on above: Performed By: #### H EMDF, PT, BMP3M, PHOS3, MG3, CK3 #### [facility] [address] [place], [place] #### VD25H #### [facility] [address] [place] [address] RBC Count Body Fld 123 {RBC}/uL Normal [facility] Comment on above: Performed By: #### H EMDF, PT, BMP3M, PHOS3, MG3, CK3 #### [facility] [address] [place], [place] #### VD25H #### [facility] [address] [place] [address] Fluid Type thoracentesis Normal [facility] Comment on above: Performed By: #### H EMDF, PT, BMP3M, PHOS3, MG3, CK3 #### [facility] [address] [place], [place] #### VD25H #### [facility] [address] [place] [address] Glucose, Body Fluidon 2018 Fluid Type Thoracentesis Normal [facility] Comment on above: Performed By: #### H EMDF, PT, BMP3M, PHOS3, MG3, CK3 #### [facility] [address] [place], [place] #### VD25H #### [facility] [address] [place] [address] Glucose, Body Fluid 136 mg/dL Normal No Range [facility] Comment on above: Performed By: #### H EMDF, PT, BMP3M, PHOS3, MG3, CK3 #### [facility] [address] [place], [place] #### VD25H #### [facility] [address] [place] [address] Glucose,Bedsideon 07-22-2018 Glucose mass conc 142 mg/dL High 70-100 [facility] Comment on above: Result Comment: Test performed by glucose meter. Results may be 10%-15% lower than serum/plasma values. (CLIA ID [id number]) Performed By: #### H EMDF, PT, BMP3M, PHOS3, MG3, CK3 #### [facility] [address] [place], [place] #### VD25H #### [facility] [address] [place] [address] Glucose mass conc 127 mg/dL High 70-100 [facility] Comment on above: Result Comment: Test performed by glucose meter. Results may be 10%-15% lower than serum/plasma values. (CLIA ID [id number]) Performed By: #### H EMDF, PT, BMP3M, PHOS3, MG3, CK3 #### [facility] [address] [place], [place] #### VD25H #### [facility] [address] [place] [address] Glucose mass conc 139 mg/dL High 70-100 [facility] Comment on above: Result Comment: Test performed by glucose meter. Results may be 10%-15% lower than serum/plasma values. (CLIA ID [id number]) Performed By: #### H EMDF, PT, BMP3M, PHOS3, MG3, CK3 #### [facility] [address] [place], [place] #### VD25H #### [facility] [address] [place] [address] Glucose mass conc 124 mg/dL High 70-100 [facility] Comment on above: Result Comment: Test performed by glucose meter. Results may be 10%-15% lower than serum/plasma values. (CLIA ID [id number]) Performed By: #### H EMDF, PT, BMP3M, PHOS3, MG3, CK3 #### [address] #### VD25H #### [facility] [address] [place] [address] Glucose mass conc 128 mg/dL High 70-100 [facility] Comment on above: Result Comment: Test performed by glucose meter. Results may be 10%-15% lower than serum/plasma values. (CLIA ID [id number]) Performed By: #### H EMDF, PT, BMP3M, PHOS3, MG3, CK3 #### [address] #### VD25H #### [facility] [address] [place] [address] Glucose mass conc 113 mg/dL High 70-100 [facility] Comment on above: Result Comment: Test performed by glucose meter. Results may be 10%-15% lower than serum/plasma values. (CLIA ID [id number]) Performed By: #### H EMDF, PT, BMP3M, PHOS3, MG3, CK3 #### [address] #### VD25H #### [facility] [address] [place] [address] Hemogram w/ Autodiffon 07-22 Abs Baso Cnt 0.1 10*3/uL Normal 0.0-0.2 [facility] Comment on above: Performed By: #### H EMDF, PT, BMP3M, PHOS3, MG3, CK3 #### [address] #### VD25H #### [facility] [address] [place] [address] Abs Neutrophile Cnt 15.2 10*3/uL High 1.8-7.0 [facility] Comment on above: Performed By: #### H EMDF, PT, BMP3M, PHOS3, MG3, CK3 #### [address] #### VD25H #### [facility] [address] [place] [address] Basophils/100 WBC (Bld) 0.6 % Normal 0.0-2.0 [facility] Comment on above: Performed By: #### H EMDF, PT, BMP3M, PHOS3, MG3, CK3 #### [address] #### VD25H #### [facility] [address] [place] [address] Eosinophils #/vol (Bld) 0.2 10*3/uL Normal 0.0-0.5 [facility] Comment on above: Performed By: #### H EMDF, PT, BMP3M, PHOS3, MG3, CK3 #### [address] #### VD25H #### [facility] [address] [place] [address] Eosinophils/100 WBC (Bld) 0.9 % Low 1.0-6.0 [facility] Comment on above: Performed By: #### H EMDF, PT, BMP3M, PHOS3, MG3, CK3 #### [address] #### VD25H #### [facility] [address] [place] [address] Erythrocyte distribution width Ratio (RBC) 13.9 % Normal 11.5-14.5 [facility] Comment on above: Performed By: #### H EMDF, PT, BMP3M, PHOS3, MG3, CK3 #### [address] #### VD25H #### [facility] [address] [place] [address] Granulocytes/100 WBC (Bld) 88.8 % High 40.0-80.0 [facility] Comment on above: Performed By: #### H EMDF, PT, BMP3M, PHOS3, MG3, CK3 #### [address] [place], [place] #### VD25H #### [facility] [address] [place] [address] Hematocrit Volume Fraction (Bld) 31.6 % Low 40.0-52.0 [facility] Comment on above: Performed By: #### H EMDF, PT, BMP3M, PHOS3, MG3, CK3 #### [address] #### VD25H #### [facility] [address] [place] [address] Hemoglobin mass conc (Bld) 10.9 g/dL Low 13.0-18.0 [facility] Comment on above: Performed By: #### H EMDF, PT, BMP3M, PHOS3, MG3, CK3 #### [address] #### VD25H #### [place] [address] [place] [address] Lymphocytes #/vol (Bld) 1.1 10*3/uL Normal 1.0-4.3 [facility] Comment on above: Performed By: #### H EMDF, PT, BMP3M, PHOS3, MG3, CK3 #### [address] #### VD25H #### [place] [address] [place] [address] Lymphocytes/100 WBC (Bld) 6.2 % Low 20.0-40.0 [facility] Comment on above: Performed By: #### H EMDF, PT, BMP3M, PHOS3, MG3, CK3 #### [address] #### VD25H #### [facility] [address] [place] [address] MCH Entitic mass (RBC) 31.1 pg Normal 26.0-34.0 [facility] Comment on above: Performed By: #### H EMDF, PT, BMP3M, PHOS3, MG3, CK3 #### [address] #### VD25H #### [facility] [address] [place] [address] MCHC mass conc (RBC) 34.6 % Normal 32.0-36.0 [facility] Comment on above: Performed By: #### H EMDF, PT, BMP3M, PHOS3, MG3, CK3 #### [address] #### VD25H #### [facility] [address] [place] [address] MCV Entitic volume (RBC) 89.9 fL Normal 80.0-98.0 [facility] Comment on above: Performed By: #### H EMDF, PT, BMP3M, PHOS3, MG3, CK3 #### [address] #### VD25H #### [facility] [address] [place] [address] Monocytes #/vol (Bld) 0.6 10*3/uL Normal 0.0-0.8 [facility] Comment on above: Performed By: #### H EMDF, PT, BMP3M, PHOS3, MG3, CK3 #### [address] #### VD25H #### [facility] [address] [place] [address] Monocytes/100 WBC (Bld) 3.5 % Normal 2.0-10.0 [facility] Comment on above: Performed By: #### H EMDF, PT, BMP3M, PHOS3, MG3, CK3 #### [address] #### VD25H #### [facility] [address] [place] [address] Platelet mean volume Entitic volume (Bld) 7.9 fL Normal 7.4-10.4 [facility] Comment on above: Performed By: #### H EMDF, PT, BMP3M, PHOS3, MG3, CK3 #### [place] [address] [address] [place], [place] #### VD25H #### [facility] [address] [place] [address] Platelets #/vol (Bld) 299 10*3/uL Normal 140-440 [facility] Comment on above: Performed By: #### H EMDF, PT, BMP3M, PHOS3, MG3, CK3 #### [address] [place], [place] #### VD25H #### [facility] [address] [place] [address] RBC #/vol (Bld) 3.52 10*6/uL Low 4.40-5.90 [facility] Comment on above: Performed By: #### H EMDF, PT, BMP3M, PHOS3, MG3, CK3 #### [address] [place], [place] #### VD25H #### [facility] [address] [place] [address] WBC #/vol (Bld) 17.1 10*3/uL High 3.6-10.7 [facility] Comment on above: Performed By: #### H EMDF, PT, BMP3M, PHOS3, MG3, CK3 #### [place] [address] [place] #### VD25H #### [facility] [address] [place] [address] LDH, Body Fluidon 07-22-2018 LDH, Body Fluid 232 U/L Normal No Range [facility] Comment on above: Performed By: #### H EMDF, PT, BMP3M, PHOS3, MG3, CK3 #### [address] #### VD25H #### [facility] [address] [place] [address] Magnesiumon 07-22-2018 Magnesium mass conc 2.6 mg/dL High 1.6-2.3 [facility] Comment on above: Performed By: #### H EMDF, PT, BMP3M, PHOS3, MG3, CK3 #### [facility] [address] [facility] [place] [address] #### VD25H #### [facility] [address] [place] [address] Medical Cytology 9 Medical Cytology [place] [facility] [employer] [id number] [facility] MEDICINE [address] [place] [address] FINAL MEDICAL CYTOLOGY REPORT NAME: KATHYA HOOPER : 1955 63 Y M [facility] NO.: [id number] [facility] T[facility] PROCEDURE 07/22/2018 DATE: [...] determined by the clinical laboratories of [facility]. They have not been cleared by [...] [facility] [address] [place] [address]. DEPARTMENT OF PATHOLOGY AND LABORATORY MEDICINE [place], [place] Normal [facility] Phosphoruson 07-22-2018 Phosphate mass conc 4.6 mg/dL High 2.5-4.5 [facility] Comment on above: Performed By: #### H EMDF, PT, BMP3M, PHOS3, MG3, CK3 #### [address] #### VD25H #### [facility] [address] [place] [address] Procalcitoninon 07-22-2018 Protein mass conc 0.27 ng/mL Abnormal <0.10 [facility] Comment on above: Result Comment: (Cor rect ref.range is <0.09 ng/mL) Test performed: [facility], [place], [place]. Performed By: #### H EMDF, PT, BMP3M, PHOS3, MG3, CK3 #### [address] #### VD25H #### [facility] [address] [place] [address] Interpretation See Below Normal [facility] Comment on above: Result Comment: PCT <0.50 = Low risk of severe sepsis and/or septic shock. PCT >2.00 = High risk of severe sepsis and/or septic shock. Performed By: #### H EMDF, PT, BMP3M, PHOS3, MG3, CK3 #### [facility] [address] [place] #### VD25H #### [facility] [address] [place] [address] STAIN ACID-FASTon 07-22-2018 STAIN ACID-FAST STAIN ACID-FAST --> Status: F No acid-fast bacilli seen in smear. - Method: AFB by Kinyoun Stain - Method: AFB by Kinyoun Stain Normal [facility] Comment on above: Performed By: #### H EMDF, PT, BMP3M, PHOS3, MG3, CK3 #### [facility] [address] [place] #### VD25H #### [facility] [address] [place] [address] Triglycerideon 07-22-2018 Triglyceride mass conc 96 mg/dL Normal <150 [facility] Comment on above: Performed By: #### H EMDF, PT, BMP3M, PHOS3, MG3, CK3 #### [address] #### VD25H #### [facility] [address] [place] [address] US Thora-Aspir Pleura w/ Evelin geon 07-22-2018 US Thora-Aspir Pleura w/ Image Patient Name: KATHYA HOOPER Ultrasound Exam Date/Time 07/22/2018 14:23:28 EDT Exam US Thora-Aspir Pleura w/ Image Ordering Physician MARIA EUGENIA PEREZ Accession Number [id number] CPT4 Codes 03097 () Reason For Exam L thoracentesis Report Reasons for examination: Left pleural effusion. Respiratory insufficiency. Ultrasound was performed of the left hemithorax, localizing the pleural fluid. After obtaining informed consent, sterile preparation, draping, and local anesthetic administration, thoracentesis was performed under direct ultrasonographic guidance with a 5 Welsh Yueh needle/catheter. A total of 300 mL [...] Date and Time: 07/22/2018 2:55 Normal [facility] pH,Misc Body Fluidon 019 pH,Misc 7.996 Normal None Available [facility] Comment on above: Performed By: #### H EMDF, PT, BMP3M, PHOS3, MG3, CK3 #### [facility] [address] [place] [address] #### VD25H #### [facility] [address] [place] [address] Arterial Blood Gaseson 07-21 CO2 molar conc 29.8 mmol/L High 23.0-27.0 [facility] Comment on above: Performed By: #### T SGL #### [facility] [address] [place] [address] HCO3 molar conc (Bld) 28.7 mmol/L High 21.0-25.0 [facility] Comment on above: Performed By: #### T SGL #### [place] [address] [place] [address] Hemoglobin mass conc (Bld) 11.7 g/dL Normal ScreenOnly [facility] Comment on above: Performed By: #### T SGL #### [place] [address] [place] [address] Oxygen ppres (Bld) 144.9 mm[Hg] High 80.0-100.0 [facility] Comment on above: Performed By: #### T SGL #### [facility] [address] [place] [address] Oxygen saturation in Blood 98.4 % Normal 95.0-100.0 [facility] Comment on above: Performed By: #### T SGL #### [facility] [address] [place] [address] pCO2 36.8 mm[Hg] Normal 35.0-45.0 [facility] Comment on above: Performed By: #### T SGL #### [facility] [address] [place] [address] pH (Bld) 7.510 High 7.350-7.450 [facility] Comment on above: Performed By: #### T SGL #### [facility] [address] [place] [address] Std Base Excess 5.5 mmol/L High -3.0-3.0 [facility] Comment on above: Performed By: #### T SGL #### [facility] [address] [place] [address] FIO2 .50 Normal [facility] Comment on above: Performed By: #### T SGL #### [place] [address] [place] [address] CR Abdomen APon 07-21-2018 CR Abdomen AP Patient Name: KATHYA HOOPER Diagnostic Radiology Exam Date/Time 07/21/2018 06:41:07 EDT Exam CR Abdomen AP Ordering Physician [id number] THAKKAR Accession Number [id number] CPT4 Codes 70513 () Reason For Exam ileus Report Reason [...] Date and Time: 07/21/2018 7:23 Normal [facility] CR Chest Portableon 07-22-19 CR Chest Portable Patient Name: KATHYA HOOPER Diagnostic Radiology Exam Date/Time 07/21/2018 06:40:50 EDT Exam CR Chest Portable Ordering Physician MARIA EUGENIA PEREZ Accession Number [id number] CPT4 Codes 86187 () Reason For Exam ETT placement Report [...] NICHOLAS Transcribed Date and Time: 07/21/2018 5:38 [facility] CR Chest Portable Patient Name: KATHYA HOOPER Diagnostic Radiology Exam Date/Time 07/21/2018 01:11:50 EDT Exam CR Chest Portable Ordering Physician MD GRIFFIN NICHOLAS Accession Number [id number] CPT4 Codes 85005 () Reason For Exam s/p bronch Report [...] Date and Time: 07/21/2018 1:26 Normal [facility] Comp Metabolic Panelon 07-21 Calcium mass conc 7.9 mg/dL Low 8.4-10.4 [facility] Comment on above: Performed By: #### T SGL #### [facility] [address] [place] [address] ALP enzyme act/vol 85 U/L Normal 38-126 [facility] Comment on above: Performed By: #### T SGL #### [facility] [address] [place] [address] ALT enzyme act/vol 105 U/L High 13-69 [facility] Comment on above: Performed By: #### T SGL #### [facility] [address] [place] [address] Anion gap molar conc 8 Normal [facility] Comment on above: Performed By: #### T SGL #### [facility] [address] [place] [address] AST enzyme act/vol 78 U/L High 15-46 [facility] Comment on above: Performed By: #### T SGL #### [facility] [address] [place] [address] Bilirubin mass conc 1.1 mg/dL Normal 0.2-1.3 [facility] Comment on above: Performed By: #### T SGL #### [facility] [address] [place] [address] CO2 molar conc 33 mmol/L High 22-30 [facility] Comment on above: Performed By: #### T SGL #### [place] [address] [place] [address] Creatinine mass conc 0.90 mg/dL Normal 0.52-1.25 [facility] Comment on above: Performed By: #### T SGL #### [place] [address] [place] [address] GFR/1.73 sq M predicted among blacks MDRD vol rate/area (S/P/Bld) mL/min/{1.73_m2} Normal >60 [facility] Comment on above: Performed By: #### T SGL #### [place] [address] [place] [address] GFR/1.73 sq M predicted among non-blacks MDRD vol rate/area (S/P/Bld) mL/min/{1.73_m2} Normal >60 [facility] Comment on above: Result Comment: Sour ce- MDRD equation with creatinine calibration to IDMS(NKDEP) eGFR not recommended for drug dose adjustment Performed By: #### T SGL #### [place] [address] [place] [address] Glucose mass conc 113 mg/dL High 70-100 [facility] Comment on above: Performed By: #### T SGL #### [place] [address] [place] [address] Protein mass conc 5.6 g/dL Low 6.3-8.2 [facility] Comment on above: Performed By: #### T SGL #### [place] [address] [place] [address] Urea nitrogen mass conc 28 mg/dL High 7-20 [facility] Comment on above: Performed By: #### T SGL #### [place] [address] [place] [address] Chloride molar conc 104 mmol/L Normal 98-107 [facility] Comment on above: Performed By: #### T SGL #### [place] [address] [place] [address] Potassium molar conc 3.6 mmol/L Normal 3.5-5.1 [facility] Comment on above: Performed By: #### T SGL #### [facility] [address] [place] [address] Sodium molar conc 145 mmol/L Normal 135-145 [facility] Comment on above: Performed By: #### T SGL #### [facility] [address] [place] [address] Albumin mass conc 2.8 g/dL Low 3.5-5.0 [facility] Comment on above: Performed By: #### T SGL #### [facility] [address] [place] [address] Glucose,Bedsideon 07-21-2018 Glucose mass conc 124 mg/dL High 70-100 [facility] Comment on above: Result Comment: Test performed by glucose meter. Results may be 10%-15% lower than serum/plasma values. (CLIA ID [id number]) Performed By: #### H EMDF, PT, BMP3M, PHOS3, MG3, CK3 #### [facility] [address] [place] [address] #### VD25H #### [facility] [address] [place] [address] Glucose mass conc 151 mg/dL High 70-100 [facility] Comment on above: Result Comment: Test performed by glucose meter. Results may be 10%-15% lower than serum/plasma values. (CLIA ID [id number]) Performed By: #### H EMDF, PT, BMP3M, PHOS3, MG3, CK3 #### [facility] [address] [place] [address] #### VD25H #### [facility] [address] [place] [address] Glucose mass conc 127 mg/dL High 70-100 [facility] Comment on above: Result Comment: Test performed by glucose meter. Results may be 10%-15% lower than serum/plasma values. (CLIA ID [id number]) Performed By: #### T SGL #### [place] [address] [place] [address] Glucose mass conc 113 mg/dL High 70-100 [facility] Comment on above: Result Comment: Test performed by glucose meter. Results may be 10%-15% lower than serum/plasma values. (CLIA ID [id number]) Performed By: #### A DDON #### [address] [place] [address] Hemogram w/ Autodiffon 07-21 Abs Baso Cnt 0.1 10*3/uL Normal 0.0-0.2 [facility] Comment on above: Performed By: #### T SGL #### [address] [address] Abs Neutrophile Cnt 11.0 10*3/uL High 1.8-7.0 [facility] Comment on above: Performed By: #### T SGL #### [address] [place] [address] Basophils/100 WBC (Bld) 0.5 % Normal 0.0-2.0 S [facility] Comment on above: Performed By: #### T SGL #### [address] [place] [address] Eosinophils #/vol (Bld) 0.3 10*3/uL Normal 0.0-0.5 [facility] Comment on above: Performed By: #### T SGL #### [address] [place] [address] Eosinophils/100 WBC (Bld) 1.9 % Normal 1.0-6.0 [facility] Comment on above: Performed By: #### T SGL #### [address] [address] Erythrocyte distribution width Ratio (RBC) 13.7 % Normal 11.5-14.5 [facility] Comment on above: Performed By: #### T SGL #### [address] [address] Granulocytes/100 WBC (Bld) 81.0 % High 40.0-80.0 [facility] Comment on above: Performed By: #### T SGL #### [address] [place] [address] Hematocrit Volume Fraction (Bld) 32.1 % Low 40.0-52.0 [facility] Comment on above: Performed By: #### T SGL #### [address] [place] [address] Hemoglobin mass conc (Bld) 10.7 g/dL Low 13.0-18.0 [facility] Comment on above: Performed By: #### T SGL #### [address] [place] [address] Lymphocytes #/vol (Bld) 1.3 10*3/uL Normal 1.0-4.3 [facility] Comment on above: Performed By: #### T SGL #### [address] [place] [address] Lymphocytes/100 WBC (Bld) 9.8 % Low 20.0-40.0 [facility] Comment on above: Performed By: #### T SGL #### [address] [place] [address] MCH Entitic mass (RBC) 29.0 pg Normal 26.0-34.0 [facility] Comment on above: Performed By: #### T SGL #### [address] [place] [address] MCHC mass conc (RBC) 33.4 % Normal 32.0-36.0 [facility] Comment on above: Performed By: #### T SGL #### [address] [place] [address] MCV Entitic volume (RBC) 86.9 fL Normal 80.0-98.0 [facility] Comment on above: Performed By: #### T SGL #### [address] [place] [address] Monocytes #/vol (Bld) 0.9 10*3/uL High 0.0-0.8 [facility] Comment on above: Performed By: #### T SGL #### [address] [place] [address] Monocytes/100 WBC (Bld) 6.8 % Normal 2.0-10.0 [facility] Comment on above: Performed By: #### T SGL #### [facility] [address] [place] [address] Platelet mean volume Entitic volume (Bld) 7.4 fL Normal 7.4-10.4 [facility] Comment on above: Performed By: #### T SGL #### [facility] [address] [place] [address] Platelets #/vol (Bld) 367 10*3/uL Normal 140-440 [facility] Comment on above: Performed By: #### T SGL #### [facility] [address] [place] [address] RBC #/vol (Bld) 3.69 10*6/uL Low 4.40-5.90 [facility] Comment on above: Performed By: #### T SGL #### [address] [place] [address] WBC #/vol (Bld) 13.6 10*3/uL High 3.6-10.7 [facility] Comment on above: Performed By: #### T SGL #### [facility] [address] [place] [address] Magnesiumon 07-21-2018 Magnesium mass conc 2.6 mg/dL High 1.6-2.3 [facility] Comment on above: Performed By: #### T SGL #### [address] [place] [address] Phosphoruson 07-21-2018 Phosphate mass conc 4.2 mg/dL Normal 2.5-4.5 [facility] Comment on above: Performed By: #### T SGL #### [facility] [address] [place] [address] Triglycerideon 07-21-2018 Triglyceride mass conc 105 mg/dL Normal <150 [facility] Comment on above: Performed By: #### T SGL #### [facility] [address] [place] [address] Add on test from HISon 07-20 Add on test from HIS Accepted Normal [facility] Comment on above: Result Comment: Spec imen available & acceptable for analysis. Performed By: #### A DDON #### [facility] [address] [place] [address] Basic Metabolic Panelon 06-30 Calcium mass conc 7.7 mg/dL Low 8.4-10.4 [facility] Comment on above: Performed By: #### A DDON #### [facility] [address] [place] [address] Glucose mass conc 96 mg/dL Normal 70-100 [facility] Comment on above: Performed By: #### A DDON #### [address] [place] [address] Urea nitrogen mass conc 22 mg/dL High 7-20 S [facility] Comment on above: Performed By: #### A DDON #### [address] [place] [address] Anion gap molar conc 10 Normal [facility] Comment on above: Performed By: #### A DDON #### [address] [place] [address] CO2 molar conc 29 mmol/L Normal 22-30 [facility] Comment on above: Performed By: #### A DDON #### [facility] [address] [place] [facility] [place] [address] Creatinine mass conc 0.87 mg/dL Normal 0.52-1.25 [facility] Comment on above: Performed By: #### A DDON #### [facility] [address] [place] [address] GFR/1.73 sq M predicted among blacks MDRD vol rate/area (S/P/Bld) mL/min/{1.73_m2} Normal >60 [facility] Comment on above: Performed By: #### A DDON #### [facility] [address] [place] [facility] [place] [address] GFR/1.73 sq M predicted among non-blacks MDRD vol rate/area (S/P/Bld) mL/min/{1.73_m2} Normal >60 [facility] Comment on above: Result Comment: Sour ce- MDRD equation with creatinine calibration to IDMS(NKDEP) eGFR not recommended for drug dose adjustment Performed By: #### A DDON #### [facility] [address] [place] [address] Potassium molar conc 3.6 mmol/L Normal 3.5-5.1 [facility] Comment on above: Performed By: #### A DDON #### [facility] [address] [place] [address] Chloride molar conc 105 mmol/L Normal 98-107 [facility] Comment on above: Performed By: #### A DDON #### [facility] [address] [place] [address] Sodium molar conc 144 mmol/L Normal 135-145 [facility] Comment on above: Performed By: #### A DDON #### [facility] [address] [place] [address] CR Abdomen APon 07-20-2018 CR Abdomen AP Patient Name: KATHYA HOOPER Diagnostic Radiology Exam Date/Time 07/20/2018 08:39:45 EDT Exam CR Abdomen AP Ordering Physician [id number] THAKKAR Accession Number [id number] CPT4 Codes 87487 () Reason For Exam ileus Report Clinical [...] Date and Time: 07/20/2018 9:29 Normal [facility] CR Chest Portableon 07-21-19 19 CR Chest Portable Patient Name: KATHYA HOOPER Diagnostic Radiology Exam Date/Time 07/20/2018 08:39:26 EDT Exam CR Chest Portable Ordering Physician MARIA EUGENIA PEREZ Accession Number [id number] CPT4 Codes 73297 () Reason For Exam ETT placement Report [...] Date and Time: 07/20/2018 9:28 Normal [facility] CT Abdomen/Pelvis w/ Contras ton 07-20-2018 CT Abdomen/Pelvis w/ Contrast Patient Name: KATHYA HOOPER CT Exam Date/Time 07/20/2018 11:30:[address] Abdomen/Pelvis w/ IV Contrast (IV Onl Ordering Physician JOYA ROJAS Accession Number [id number] CPT4 Codes 07550 (CT Abdomen/Pelvis w/ IV Contrast (IV Onl) [...] Date and Time: 07/20/2018 1:10 Normal [facility] CT Chest w/ Contraston 07-20 CT Chest w/ Contrast Patient Name: KATHYA RAY CT Exam Date/Time 07/20/2018 11:30:[address] Chest w/ Contrast Ordering Physician JOYA ROJAS Accession Number [id number] CPT4 Codes 75419 (), Q9967 (CT ISOVUE 370MG/[id number]) Reason For Exam SOB, possible pneumonia Report [...] Date and Time: 07/20/2018 1:28 Normal [facility] Glucose,Bedsideon 07-20-2018 Glucose mass conc 128 mg/dL High 70-100 [facility] Comment on above: Result Comment: Test performed by glucose meter. Results may be 10%-15% lower than serum/plasma values. (CLIA ID [id number]) Performed By: #### A DDON #### [address] Hemogram w/ Autodiffon 07-20 Abs Baso Cnt 0.1 10*3/uL Normal 0.0-0.2 [facility] Comment on above: Performed By: #### H EMDF, PT, BMP3M, PHOS3, MG3, CK3 #### [address] #### VD25H #### [facility] [address] [place] [address] Abs Neutrophile Cnt 13.0 10*3/uL High 1.8-7.0 [facility] Comment on above: Performed By: #### H EMDF, PT, BMP3M, PHOS3, MG3, CK3 #### [address] [address] [place] #### VD25H #### [facility] [address] [place] [address] Basophils/100 WBC (Bld) 0.3 % Normal 0.0-2.0 S [facility] Comment on above: Performed By: #### H EMDF, PT, BMP3M, PHOS3, MG3, CK3 #### [address] #### VD25H #### [facility] [address] [place] [address] Eosinophils #/vol (Bld) 0.3 10*3/uL Normal 0.0-0.5 [facility] Comment on above: Performed By: #### H EMDF, PT, BMP3M, PHOS3, MG3, CK3 #### [address] #### VD25H #### [facility] [address] [place] [address] Eosinophils/100 WBC (Bld) 1.9 % Normal 1.0-6.0 [facility] Comment on above: Performed By: #### H EMDF, PT, BMP3M, PHOS3, MG3, CK3 #### [address] #### VD25H #### [facility] [address] [place] [address] Erythrocyte distribution width Ratio (RBC) 13.3 % Normal 11.5-14.5 [facility] Comment on above: Performed By: #### H EMDF, PT, BMP3M, PHOS3, MG3, CK3 #### [address] #### VD25H #### [facility] [address] [place] [address] Granulocytes/100 WBC (Bld) 81.8 % High 40.0-80.0 [facility] Comment on above: Performed By: #### H EMDF, PT, BMP3M, PHOS3, MG3, CK3 #### [address] #### VD25H #### [facility] [address] [place] [address] Hematocrit Volume Fraction (Bld) 33.6 % Low 40.0-52.0 [facility] Comment on above: Performed By: #### H EMDF, PT, BMP3M, PHOS3, MG3, CK3 #### [address] [place] #### VD25H #### [facility] [address] [place] [address] Hemoglobin mass conc (Bld) 11.4 g/dL Low 13.0-18.0 [facility] Comment on above: Performed By: #### H EMDF, PT, BMP3M, PHOS3, MG3, CK3 #### [address] #### VD25H #### [facility] [address] [place] [address] Lymphocytes #/vol (Bld) 1.5 10*3/uL Normal 1.0-4.3 [facility] Comment on above: Performed By: #### H EMDF, PT, BMP3M, PHOS3, MG3, CK3 #### [address] #### VD25H #### [address] [place] [address] Lymphocytes/100 WBC (Bld) 9.2 % Low 20.0-40.0 [facility] Comment on above: Performed By: #### H EMDF, PT, BMP3M, PHOS3, MG3, CK3 #### [address] #### VD25H #### [facility] [address] [place] [address] MCH Entitic mass (RBC) 29.3 pg Normal 26.0-34.0 [facility] Comment on above: Performed By: #### H EMDF, PT, BMP3M, PHOS3, MG3, CK3 #### [address] #### VD25H #### [facility] [address] [place] [address] MCHC mass conc (RBC) 33.9 % Normal 32.0-36.0 [facility] Comment on above: Performed By: #### H EMDF, PT, BMP3M, PHOS3, MG3, CK3 #### [facility] [address] [place] #### VD25H #### [facility] [address] [place] [address] MCV Entitic volume (RBC) 86.5 fL Normal 80.0-98.0 [facility] Comment on above: Performed By: #### H EMDF, PT, BMP3M, PHOS3, MG3, CK3 #### [address] [place] #### VD25H #### [facility] [address] [place] [address] Monocytes #/vol (Bld) 1.1 10*3/uL High 0.0-0.8 [facility] Comment on above: Performed By: #### H EMDF, PT, BMP3M, PHOS3, MG3, CK3 #### [address] #### VD25H #### [facility] [address] [place] [address] Monocytes/100 WBC (Bld) 6.8 % Normal 2.0-10.0 S [facility] Comment on above: Performed By: #### H EMDF, PT, BMP3M, PHOS3, MG3, CK3 #### [address] #### VD25H #### [facility] [address] [place] [address] Platelet mean volume Entitic volume (Bld) 7.5 fL Normal 7.4-10.4 [facility] Comment on above: Performed By: #### H EMDF, PT, BMP3M, PHOS3, MG3, CK3 #### [address] [place] #### VD25H #### [facility] [address] [place] [address] Platelets #/vol (Bld) 375 10*3/uL Normal 140-440 [facility] Comment on above: Performed By: #### H EMDF, PT, BMP3M, PHOS3, MG3, CK3 #### [facility] [address] [place] #### VD25H #### [facility] [address] [place] [address] RBC #/vol (Bld) 3.88 10*6/uL Low 4.40-5.90 [facility] Comment on above: Performed By: #### H EMDF, PT, BMP3M, PHOS3, MG3, CK3 #### [address] [place] #### VD25H #### [facility] [address] [place] [address] WBC #/vol (Bld) 15.9 10*3/uL High 3.6-10.7 [facility] Comment on above: Performed By: #### H EMDF, PT, BMP3M, PHOS3, MG3, CK3 #### [address] #### VD25H #### [facility] [address] [place] [address] Phosphoruson 07-20-2018 Phosphate mass conc 5.5 mg/dL High 2.5-4.5 [facility] Comment on above: Performed By: #### A DDON #### [address] Add on test from HISon 07-19 Add on test from HIS Accepted Normal [facility] Comment on above: Result Comment: Spec imen available & acceptable for analysis. Performed By: #### H EMDF, PT, BMP3M, PHOS3, MG3, CK3 #### [address] [place] #### VD25H #### [facility] [address] [place] [address] Arterial Blood Gaseson 07-19 CO2 molar conc 31.5 mmol/L High 23.0-27.0 [facility] Comment on above: Performed By: #### H EMDF, PT, BMP3M, PHOS3, MG3, CK3 #### [address] [place] #### VD25H #### [facility] [address] [place] [address] HCO3 molar conc (Bld) 30.2 mmol/L High 21.0-25.0 [facility] Comment on above: Performed By: #### H EMDF, PT, BMP3M, PHOS3, MG3, CK3 #### [address] [place] #### VD25H #### [facility] [address] [place] [address] Hemoglobin mass conc (Bld) 11.7 g/dL Normal ScreenOnly [facility] Comment on above: Performed By: #### H EMDF, PT, BMP3M, PHOS3, MG3, CK3 #### [address] [place] #### VD25H #### [facility] [address] [place] [address] Oxygen ppres (Bld) 85.1 mm[Hg] Normal 80.0-100.0 [facility] Comment on above: Performed By: #### H EMDF, PT, BMP3M, PHOS3, MG3, CK3 #### [address] [place] #### VD25H #### [facility] [address] [place] [address] Oxygen saturation in Blood 95.9 % Normal 95.0-100.0 [facility] Comment on above: Performed By: #### H EMDF, PT, BMP3M, PHOS3, MG3, CK3 #### [address] [place] #### VD25H #### [facility] [address] [place] [address] pCO2 43.6 mm[Hg] Normal 35.0-45.0 [facility] Comment on above: Performed By: #### H EMDF, PT, BMP3M, PHOS3, MG3, CK3 #### [facility] [address] [facility] #### VD25H #### [facility] [address] [place] [address] pH (Bld) 7.458 High 7.350-7.450 [facility] Comment on above: Performed By: #### H EMDF, PT, BMP3M, PHOS3, MG3, CK3 #### [facility] [address] [facility] #### VD25H #### [facility] [address] [place] [address] Std Base Excess 5.7 mmol/L High -3.0-3.0 [facility] Comment on above: Performed By: #### H EMDF, PT, BMP3M, PHOS3, MG3, CK3 #### [address] [facility] #### VD25H #### [facility] [address] [place] [address] FIO2 40% Normal [facility] Comment on above: Performed By: #### H EMDF, PT, BMP3M, PHOS3, MG3, CK3 #### [address] [facility] #### VD25H #### [facility] [address] [place] [address] Basic Metabolic Panelon 03-2 Calcium mass conc 7.5 mg/dL Low 8.4-10.4 [facility] Comment on above: Performed By: #### H EMDF, PT, BMP3M, PHOS3, MG3, CK3 #### [facility] [address] [facility] #### VD25H #### [facility] [address] [place] [address] Glucose mass conc 274 mg/dL High 70-100 [facility] Comment on above: Performed By: #### H EMDF, PT, BMP3M, PHOS3, MG3, CK3 #### [facility] [address] [place] #### VD25H #### [facility] [address] [place] [address] Anion gap molar conc 6 Normal [facility] Comment on above: Performed By: #### H EMDF, PT, BMP3M, PHOS3, MG3, CK3 #### [facility] [address] [place] #### VD25H #### [facility] [address] [place] [address] CO2 molar conc 31 mmol/L High 22-30 [facility] Comment on above: Performed By: #### H EMDF, PT, BMP3M, PHOS3, MG3, CK3 #### [address] #### VD25H #### [facility] [address] [place] [address] Creatinine mass conc 0.64 mg/dL Normal 0.52-1.25 [facility] Comment on above: Performed By: #### H EMDF, PT, BMP3M, PHOS3, MG3, CK3 #### [address] [place] #### VD25H #### [facility] [address] [place] [address] GFR/1.73 sq M predicted among blacks MDRD vol rate/area (S/P/Bld) mL/min/{1.73_m2} Normal >60 [facility] Comment on above: Performed By: #### H EMDF, PT, BMP3M, PHOS3, MG3, CK3 #### [address] [place] #### VD25H #### [facility] [address] [place] [address] GFR/1.73 sq M predicted among non-blacks MDRD vol rate/area (S/P/Bld) mL/min/{1.73_m2} Normal >60 [facility] Comment on above: Result Comment: Sour ce- MDRD equation with creatinine calibration to IDMS(NKDEP) eGFR not recommended for drug dose adjustment Performed By: #### H EMDF, PT, BMP3M, PHOS3, MG3, CK3 #### [facility] [address] [place] #### VD25H #### [facility] [address] [place] [address] Urea nitrogen mass conc 15 mg/dL Normal 7-20 [facility] Comment on above: Performed By: #### H EMDF, PT, BMP3M, PHOS3, MG3, CK3 #### [address] [place] #### VD25H #### [facility] [address] [place] [address] Chloride molar conc 105 mmol/L Normal 98-107 [facility] Comment on above: Performed By: #### H EMDF, PT, BMP3M, PHOS3, MG3, CK3 #### [address] [place] #### VD25H #### [facility] [address] [place] [address] Potassium molar conc 4.3 mmol/L Normal 3.5-5.1 [facility] Comment on above: Performed By: #### H EMDF, PT, BMP3M, PHOS3, MG3, CK3 #### [facility] [address] [place] #### VD25H #### [facility] [address] [place] [address] Sodium molar conc 141 mmol/L Normal 135-145 [facility] Comment on above: Performed By: #### H EMDF, PT, BMP3M, PHOS3, MG3, CK3 #### [address] [place] #### VD25H #### [facility] [address] [place] [address] CR Abdomen APon 07-19-2018 CR Abdomen AP Patient Name: KATHYA HOOPER Diagnostic Radiology Exam Date/Time 07/19/2018 06:44:12 EDT Exam CR Abdomen AP Ordering Physician [id number] JOYA PERRY Accession Number [id number] CPT4 Codes 06195 () Reason For Exam ileus Report Abdomen: [...] Date and Time: 07/19/2018 7:46 Normal [facility] CR Chest Portableon 07-20-19 19 CR Chest Portable Patient Name: KATHYA HOOPER Diagnostic Radiology Exam Date/Time 07/19/2018 06:43:52 EDT Exam CR Chest Portable Ordering Physician MARIA EUGENIA PEREZ Accession Number [id number] CPT4 Codes 16311 () Reason For Exam ETT placement Report [...] Date and Time: 07/19/2018 7:44 Normal [facility] Glucose,Bedsideon 07-19-2018 Glucose mass conc 95 mg/dL Normal 70-100 [facility] Comment on above: Result Comment: Test performed by glucose meter. Results may be 10%-15% lower than serum/plasma values. (CLIA ID [id number]) Performed By: #### H EMDF, PT, BMP3M, PHOS3, MG3, CK3 #### [facility] [address] [place] #### VD25H #### [facility] [address] [place] [address] Hemogram w/ Autodiffon 07-19 Abs Baso Cnt 0.1 10*3/uL Normal 0.0-0.2 [facility] Comment on above: Performed By: #### H EMDF, PT, BMP3M, PHOS3, MG3, CK3 #### [facility] [address] [place] #### VD25H #### [facility] [address] [place] [address] Abs Neutrophile Cnt 9.8 10*3/uL High 1.8-7.0 [facility] Comment on above: Performed By: #### H EMDF, PT, BMP3M, PHOS3, MG3, CK3 #### [facility] [address] [place] #### VD25H #### [facility] [address] [place] [address] Basophils/100 WBC (Bld) 0.5 % Normal 0.0-2.0 [facility] Comment on above: Performed By: #### H EMDF, PT, BMP3M, PHOS3, MG3, CK3 #### [facility] [address] [place] #### VD25H #### [facility] [address] [address] Eosinophils #/vol (Bld) 0.3 10*3/uL Normal 0.0-0.5 [facility] Comment on above: Performed By: #### H EMDF, PT, BMP3M, PHOS3, MG3, CK3 #### [facility] [address] [place] #### VD25H #### [facility] [address] [place] [address] Eosinophils/100 WBC (Bld) 2.5 % Normal 1.0-6.0 [facility] Comment on above: Performed By: #### H EMDF, PT, BMP3M, PHOS3, MG3, CK3 #### [address] #### VD25H #### [facility] [address] [place] [address] Erythrocyte distribution width Ratio (RBC) 13.3 % Normal 11.5-14.5 [facility] Comment on above: Performed By: #### H EMDF, PT, BMP3M, PHOS3, MG3, CK3 #### [address] #### VD25H #### [facility] [address] [place] [address] Granulocytes/100 WBC (Bld) 80.4 % High 40.0-80.0 [facility] Comment on above: Performed By: #### H EMDF, PT, BMP3M, PHOS3, MG3, CK3 #### [address] #### VD25H #### [facility] [address] [place] [address] Hematocrit Volume Fraction (Bld) 30.6 % Low 40.0-52.0 [facility] Comment on above: Performed By: #### H EMDF, PT, BMP3M, PHOS3, MG3, CK3 #### [address] #### VD25H #### [facility] [address] [place] [address] Hemoglobin mass conc (Bld) 10.5 g/dL Low 13.0-18.0 [facility] Comment on above: Performed By: #### H EMDF, PT, BMP3M, PHOS3, MG3, CK3 #### [address] #### VD25H #### [facility] [facility] [address] [place] [address] Lymphocytes #/vol (Bld) 1.1 10*3/uL Normal 1.0-4.3 [facility] Comment on above: Performed By: #### H EMDF, PT, BMP3M, PHOS3, MG3, CK3 #### [address] #### VD25H #### [place] [address] [place] [address] Lymphocytes/100 WBC (Bld) 9.1 % Low 20.0-40.0 [facility] Comment on above: Performed By: #### H EMDF, PT, BMP3M, PHOS3, MG3, CK3 #### [address] #### VD25H #### [place] [address] [place] [address] MCH Entitic mass (RBC) 29.7 pg Normal 26.0-34.0 [facility] Comment on above: Performed By: #### H EMDF, PT, BMP3M, PHOS3, MG3, CK3 #### [address] #### VD25H #### [facility] [address] [place] [address] MCHC mass conc (RBC) 34.3 % Normal 32.0-36.0 [facility] Comment on above: Performed By: #### H EMDF, PT, BMP3M, PHOS3, MG3, CK3 #### [address] #### VD25H #### [facility] [address] [place] [address] MCV Entitic volume (RBC) 86.7 fL Normal 80.0-98.0 [facility] Comment on above: Performed By: #### H EMDF, PT, BMP3M, PHOS3, MG3, CK3 #### [address] #### VD25H #### [facility] [address] [place] [address] Monocytes #/vol (Bld) 0.9 10*3/uL High 0.0-0.8 [facility] Comment on above: Performed By: #### H EMDF, PT, BMP3M, PHOS3, MG3, CK3 #### [address] #### VD25H #### [place] [address] [place] [address] Monocytes/100 WBC (Bld) 7.5 % Normal 2.0-10.0 [facility] Comment on above: Performed By: #### H EMDF, PT, BMP3M, PHOS3, MG3, CK3 #### [address] #### VD25H #### [place] [address] [place] [address] Platelet mean volume Entitic volume (Bld) 7.3 fL Low 7.4-10.4 [facility] Comment on above: Performed By: #### H EMDF, PT, BMP3M, PHOS3, MG3, CK3 #### [address] #### VD25H #### [facility] [address] [place] [address] Platelets #/vol (Bld) 329 10*3/uL Normal 140-440 [facility] Comment on above: Performed By: #### H EMDF, PT, BMP3M, PHOS3, MG3, CK3 #### [address] #### VD25H #### [facility] [address] [place] [address] RBC #/vol (Bld) 3.53 10*6/uL Low 4.40-5.90 [facility] Comment on above: Performed By: #### H EMDF, PT, BMP3M, PHOS3, MG3, CK3 #### [address] #### VD25H #### [facility] [address] [place] [address] WBC #/vol (Bld) 12.2 10*3/uL High 3.6-10.7 [facility] Comment on above: Performed By: #### H EMDF, PT, BMP3M, PHOS3, MG3, CK3 #### [address] #### VD25H #### [facility] [address] [place] [address] Magnesiumon 07-19-2018 Magnesium mass conc 2.3 mg/dL Normal 1.6-2.3 [facility] Comment on above: Performed By: #### H EMDF, PT, BMP3M, PHOS3, MG3, CK3 #### [address] #### VD25H #### [facility] [address] [place] [address] Procalcitoninon 07-19-2018 Protein mass conc 0.15 ng/mL Abnormal <0.10 [facility] Comment on above: Performed By: #### H EMDF, PT, BMP3M, PHOS3, MG3, CK3 #### [address] #### VD25H #### [facility] [address] [place] [address] Interpretation See Below Normal [facility] Comment on above: Result Comment: PCT <0.50 = Low risk of severe sepsis and/or septic shock. PCT >2.00 = High risk of severe sepsis and/or septic shock. Performed By: #### H EMDF, PT, BMP3M, PHOS3, MG3, CK3 #### [facility] [address] [place] [address] #### VD25H #### [facility] [address] [place] [address] VL Venous Duplex US Lower Ex t Bilateralon 07-19-2018 VL Venous Duplex US Lower Ext Bilateral Patient Name: KATHYA HOOPER Ultrasound Exam Date/Time 07/19/2018 11:10:14 EDT Exam VL Venous Duplex US Lower Ext Bilateral Ordering Physician ETIENNE MARTÍNEZ JULIE Accession Number [id number] CPT4 Codes 17895 () Reason For Exam edema Report [facility] --- Lower Extremity Venous Duplex Report Patient Name: Kathya Hooper : 1955 Study Date: 07/19/2018 W (63yrs) Age: 63 Account: [id number] Gender: M Loc: T209 BP: Ordering: Yesenia Martínez Technologist: Ordering Physician: Yesenia Martínez Software Architect: León Chaidez RVT, [facility] Interpreting Physician: Ricardo Hall MD [...] performed. The images were obtained using a [employer] E9 vascular ultrasound machine. --- VENOUS FLOW [...] --+ Electronically signed by: Ricardo Hall MD [id number] Final Dictated: 07/20/2018 10:49 am Dictating Physician: RICARDO HALL Signed Date and Time: 07/19/2018 11:03 am Signed by: RICARDO HALL Normal [facility] Basic Metabolic Panelon 06-30 Calcium mass conc 7.9 mg/dL Low 8.4-10.4 [facility] Comment on above: Performed By: #### H EMDF, PT, BMP3M, PHOS3, MG3, CK3 #### [facility] [address] [place] #### VD25H #### [facility] [address] [place] [address] Glucose mass conc 113 mg/dL High 70-100 [facility] Comment on above: Performed By: #### H EMDF, PT, BMP3M, PHOS3, MG3, CK3 #### [place] [address] [address] [facility] #### VD25H #### [facility] [address] [place] [address] Anion gap molar conc 7 Normal [facility] Comment on above: Performed By: #### H EMDF, PT, BMP3M, PHOS3, MG3, CK3 #### [facility] [address] [facility] #### VD25H #### [facility] [address] [place] [address] CO2 molar conc 31 mmol/L High 22-30 [facility] Comment on above: Performed By: #### H EMDF, PT, BMP3M, PHOS3, MG3, CK3 #### [place] [address] [address] [facility] #### VD25H #### [facility] [address] [place] [address] Creatinine mass conc 0.59 mg/dL Normal 0.52-1.25 [facility] Comment on above: Performed By: #### H EMDF, PT, BMP3M, PHOS3, MG3, CK3 #### [place] [address] [address] [facility] #### VD25H #### [facility] [address] [place] [address] GFR/1.73 sq M predicted among blacks MDRD vol rate/area (S/P/Bld) mL/min/{1.73_m2} Normal >60 [facility] Comment on above: Performed By: #### H EMDF, PT, BMP3M, PHOS3, MG3, CK3 #### [address] #### VD25H #### [facility] [address] [place] [address] GFR/1.73 sq M predicted among non-blacks MDRD vol rate/area (S/P/Bld) mL/min/{1.73_m2} Normal >60 [facility] Comment on above: Result Comment: Sour ce- MDRD equation with creatinine calibration to IDMS(NKDEP) eGFR not recommended for drug dose adjustment Performed By: #### H EMDF, PT, BMP3M, PHOS3, MG3, CK3 #### [address] #### VD25H #### [place] [address] [place] [address] Urea nitrogen mass conc 19 mg/dL Normal 7-20 [facility] Comment on above: Performed By: #### H EMDF, PT, BMP3M, PHOS3, MG3, CK3 #### [address] #### VD25H #### [facility] [address] [place] [address] Chloride molar conc 104 mmol/L Normal 98-107 [facility] Comment on above: Performed By: #### H EMDF, PT, BMP3M, PHOS3, MG3, CK3 #### [address] #### VD25H #### [facility] [address] [place] [address] Potassium molar conc 3.4 mmol/L Low 3.5-5.1 [facility] Comment on above: Performed By: #### H EMDF, PT, BMP3M, PHOS3, MG3, CK3 #### [facility] [address] [place] [address] #### VD25H #### [facility] [address] [place] [address] Sodium molar conc 142 mmol/L Normal 135-145 [facility] Comment on above: Performed By: #### H EMDF, PT, BMP3M, PHOS3, MG3, CK3 #### [facility] [address] [place] [address] #### VD25H #### [facility] [address] [place] [address] CR Abdomen APon 07-18-2018 CR Abdomen AP Patient Name: KATHYA HOOPER Diagnostic Radiology Exam Date/Time 07/18/2018 06:52:18 EDT Exam CR Abdomen AP Ordering Physician [id number] JOYA PERRY Accession Number [id number] CPT4 Codes 24815 () Reason For Exam ileus Report CLINICAL [...] Date and Time: 07/18/2018 2:33 Normal [facility] CR Chest Portableon 07-19-19 19 CR Chest Portable Patient Name: KATHYA HOOPER Diagnostic Radiology Exam Date/Time 07/18/2018 06:52:50 EDT Exam CR Chest Portable Ordering Physician MARIA EUGENIA PEREZ Accession Number [id number] CPT4 Codes 88242 () Reason For Exam ETT placement Report [...] Date and Time: 07/18/2018 2:32 Normal [facility] Hemogram w/ Autodiffon 07-18 Abs Baso Cnt 0.0 10*3/uL Normal 0.0-0.2 [facility] Comment on above: Performed By: #### H EMDF, PT, BMP3M, PHOS3, MG3, CK3 #### [facility] [address] [place] [address] #### VD25H #### [facility] [address] [place] [address] Abs Neutrophile Cnt 8.6 10*3/uL High 1.8-7.0 [facility] Comment on above: Performed By: #### H EMDF, PT, BMP3M, PHOS3, MG3, CK3 #### [facility] [address] [place] #### VD25H #### [facility] [address] [place] [address] Basophils/100 WBC (Bld) 0.4 % Normal 0.0-2.0 [facility] Comment on above: Performed By: #### H EMDF, PT, BMP3M, PHOS3, MG3, CK3 #### [place] [address] [place] #### VD25H #### [facility] [address] [place] [address] Eosinophils #/vol (Bld) 0.2 10*3/uL Normal 0.0-0.5 [facility] Comment on above: Performed By: #### H EMDF, PT, BMP3M, PHOS3, MG3, CK3 #### [address] #### VD25H #### [facility] [address] [place] [address] Eosinophils/100 WBC (Bld) 2.1 % Normal 1.0-6.0 [facility] Comment on above: Performed By: #### H EMDF, PT, BMP3M, PHOS3, MG3, CK3 #### [address] #### VD25H #### [facility] [address] [place] [address] Erythrocyte distribution width Ratio (RBC) 13.4 % Normal 11.5-14.5 [facility] Comment on above: Performed By: #### H EMDF, PT, BMP3M, PHOS3, MG3, CK3 #### [address] #### VD25H #### [facility] [address] [place] [address] Granulocytes/100 WBC (Bld) 80.0 % Normal 40.0-80.0 [facility] Comment on above: Performed By: #### H EMDF, PT, BMP3M, PHOS3, MG3, CK3 #### [address] #### VD25H #### [facility] [address] [place] [address] Hematocrit Volume Fraction (Bld) 37.3 % Low 40.0-52.0 [facility] Comment on above: Performed By: #### H EMDF, PT, BMP3M, PHOS3, MG3, CK3 #### [address] #### VD25H #### [facility] [address] [place] [address] Hemoglobin mass conc (Bld) 12.6 g/dL Low 13.0-18.0 [facility] Comment on above: Performed By: #### H EMDF, PT, BMP3M, PHOS3, MG3, CK3 #### [address] #### VD25H #### [facility] [address] [place] [address] Lymphocytes #/vol (Bld) 1.1 10*3/uL Normal 1.0-4.3 [facility] Comment on above: Performed By: #### H EMDF, PT, BMP3M, PHOS3, MG3, CK3 #### [address] #### VD25H #### [facility] [address] [place] [address] Lymphocytes/100 WBC (Bld) 10.3 % Low 20.0-40.0 [facility] Comment on above: Performed By: #### H EMDF, PT, BMP3M, PHOS3, MG3, CK3 #### [address] #### VD25H #### [facility] [address] [place] [address] MCH Entitic mass (RBC) 29.4 pg Normal 26.0-34.0 [facility] Comment on above: Performed By: #### H EMDF, PT, BMP3M, PHOS3, MG3, CK3 #### [address] #### VD25H #### [facility] [address] [place] [address] MCHC mass conc (RBC) 33.9 % Normal 32.0-36.0 [facility] Comment on above: Performed By: #### H EMDF, PT, BMP3M, PHOS3, MG3, CK3 #### [address] [place], [place] #### VD25H #### [facility] [address] [place] [address] MCV Entitic volume (RBC) 86.8 fL Normal 80.0-98.0 [facility] Comment on above: Performed By: #### H EMDF, PT, BMP3M, PHOS3, MG3, CK3 #### [address] #### VD25H #### [facility] [address] [place] [address] Monocytes #/vol (Bld) 0.8 10*3/uL Normal 0.0-0.8 [facility] Comment on above: Performed By: #### H EMDF, PT, BMP3M, PHOS3, MG3, CK3 #### [address] #### VD25H #### [facility] [address] [place] [place] [address] Monocytes/100 WBC (Bld) 7.2 % Normal 2.0-10.0 [facility] Comment on above: Performed By: #### H EMDF, PT, BMP3M, PHOS3, MG3, CK3 #### [address] #### VD25H #### [facility] [address] [place] [address] Platelet mean volume Entitic volume (Bld) 7.8 fL Normal 7.4-10.4 [facility] Comment on above: Performed By: #### H EMDF, PT, BMP3M, PHOS3, MG3, CK3 #### [place] [address] [place] #### VD25H #### [facility] [address] [place] [address] Platelets #/vol (Bld) 301 10*3/uL Normal 140-440 [facility] Comment on above: Performed By: #### H EMDF, PT, BMP3M, PHOS3, MG3, CK3 #### [address] #### VD25H #### [facility] [address] [place] [address] RBC #/vol (Bld) 4.29 10*6/uL Low 4.40-5.90 [facility] Comment on above: Performed By: #### H EMDF, PT, BMP3M, PHOS3, MG3, CK3 #### [address] #### VD25H #### [facility] [address] [place] [address] WBC #/vol (Bld) 10.8 10*3/uL High 3.6-10.7 [facility] Comment on above: Performed By: #### H EMDF, PT, BMP3M, PHOS3, MG3, CK3 #### [address] #### VD25H #### [facility] [address] [place] [address] Arterial Blood Gaseson 07-17 CO2 molar conc 29.7 mmol/L High 23.0-27.0 [facility] Comment on above: Performed By: #### H EMDF, PT, BMP3M, PHOS3, MG3, CK3 #### [address] #### VD25H #### [facility] [address] [place] [address] HCO3 molar conc (Bld) 28.4 mmol/L High 21.0-25.0 [facility] Comment on above: Performed By: #### H EMDF, PT, BMP3M, PHOS3, MG3, CK3 #### [facility] [address] [place] #### VD25H #### [facility] [address] [place] [address] Hemoglobin mass conc (Bld) 11.1 g/dL Normal [facility]Only [facility] Comment on above: Performed By: #### H EMDF, PT, BMP3M, PHOS3, MG3, CK3 #### [address] #### VD25H #### [facility] [address] [place] [address] Oxygen ppres (Bld) 109.2 mm[Hg] High 80.0-100.0 [facility] Comment on above: Performed By: #### H EMDF, PT, BMP3M, PHOS3, MG3, CK3 #### [address] #### VD25H #### [facility] [address] [place] [address] Oxygen saturation in Blood 97.8 % Normal 95.0-100.0 [facility] Comment on above: Performed By: #### H EMDF, PT, BMP3M, PHOS3, MG3, CK3 #### [address] [place] #### VD25H #### [facility] [address] [place] [address] pCO2 39.8 mm[Hg] Normal 35.0-45.0 [facility] Comment on above: Performed By: #### H EMDF, PT, BMP3M, PHOS3, MG3, CK3 #### [address] #### VD25H #### [facility] [address] [place] [address] pH (Bld) 7.472 High 7.350-7.450 [facility] Comment on above: Performed By: #### H EMDF, PT, BMP3M, PHOS3, MG3, CK3 #### [facility] [address] [place] #### VD25H #### [facility] [address] [place] [address] Std Base Excess 4.5 mmol/L High -3.0-3.0 [facility] Comment on above: Performed By: #### H EMDF, PT, BMP3M, PHOS3, MG3, CK3 #### [place] [address] [place] #### VD25H #### [facility] [address] [place] [address] FIO2 60% Normal [facility] Comment on above: Performed By: #### H EMDF, PT, BMP3M, PHOS3, MG3, CK3 #### [place] [address] [place] #### VD25H #### [facility] [address] [place] [address] Basic Metabolic Panelon - Anion gap molar conc 6 Normal [facility] Comment on above: Performed By: #### H EMDF, PT, BMP3M, PHOS3, MG3, CK3 #### [place] [address] [place] #### VD25H #### [facility] [address] [place] [address] Calcium mass conc 8.0 mg/dL Low 8.4-10.4 [facility] Comment on above: Performed By: #### H EMDF, PT, BMP3M, PHOS3, MG3, CK3 #### [place] [address] [place] #### VD25H #### [facility] [address] [place] [address] CO2 molar conc 31 mmol/L High 22-30 [facility] Comment on above: Performed By: #### H EMDF, PT, BMP3M, PHOS3, MG3, CK3 #### [place] [address] [place] #### VD25H #### [facility] [address] [place] [address] Glucose mass conc 107 mg/dL High 70-100 [facility] Comment on above: Performed By: #### H EMDF, PT, BMP3M, PHOS3, MG3, CK3 #### [place] [address] [place] #### VD25H #### [facility] [address] [place] [address] Urea nitrogen mass conc 22 mg/dL High 7-20 [facility] Comment on above: Performed By: #### H EMDF, PT, BMP3M, PHOS3, MG3, CK3 #### [place] [address] [place] #### VD25H #### [facility] [address] [place] [address] Creatinine mass conc 0.66 mg/dL Normal 0.52-1.25 [facility] Comment on above: Performed By: #### H EMDF, PT, BMP3M, PHOS3, MG3, CK3 #### [place] [address] [place] #### VD25H #### [facility] [address] [place] [address] GFR/1.73 sq M predicted among blacks MDRD vol rate/area (S/P/Bld) mL/min/{1.73_m2} Normal >60 [facility] Comment on above: Performed By: #### H EMDF, PT, BMP3M, PHOS3, MG3, CK3 #### [place] [address] [place] #### VD25H #### [facility] [address] [place] [address] GFR/1.73 sq M predicted among non-blacks MDRD vol rate/area (S/P/Bld) mL/min/{1.73_m2} Normal >60 [facility] Comment on above: Result Comment: Sour ce- MDRD equation with creatinine calibration to IDMS(NKDEP) eGFR not recommended for drug dose adjustment Performed By: #### H EMDF, PT, BMP3M, PHOS3, MG3, CK3 #### [facility] [address] [place] #### VD25H #### [facility] [address] [place] [address] Chloride molar conc 105 mmol/L Normal 98-107 [facility] Comment on above: Performed By: #### H EMDF, PT, BMP3M, PHOS3, MG3, CK3 #### [address] #### VD25H #### [facility] [address] [place] [address] Potassium molar conc 3.9 mmol/L Normal 3.5-5.1 [facility] Comment on above: Performed By: #### H EMDF, PT, BMP3M, PHOS3, MG3, CK3 #### [facility] [address] [place] #### VD25H #### [facility] [address] [place] [address] Sodium molar conc 142 mmol/L Normal 135-145 [facility] Comment on above: Performed By: #### H EMDF, PT, BMP3M, PHOS3, MG3, CK3 #### [facility] [address] [place] #### VD25H #### [facility] [address] [place] [address] CR Abdomen APon 07-17-2018 CR Abdomen AP Patient Name: KATHYA HOOPER Diagnostic Radiology Exam Date/Time 07/17/2018 12:46:31 EDT Exam CR Abdomen AP Ordering Physician [id number] JoesphJOYA OCAMPO Accession Number [id number] CPT4 Codes 02150 () Reason For Exam ileus Report Abdomen: [...] RISA Transcribed Date and Time: 07/17/2018 12:46 [facility] CR Abdomen AP Patient Name: KATHYA HOOPER Diagnostic Radiology Exam Date/Time 07/17/2018 06:25:43 EDT Exam CR Abdomen AP Ordering Physician [id number] JoesphTERRENCE JOYA Accession Number [id number] CPT4 Codes 24858 () Reason For Exam ileus Report Abdomen: [...] Transcribed Date and Time: 07/17/2018 7:16 Normal [facility] CR Chest Portableon 07-18-19 19 CR Chest Portable Patient Name: KATHYA HOOPER Diagnostic Radiology Exam Date/Time 07/17/2018 18:08:41 EDT Exam CR Chest Portable Ordering Physician SALO DAVIS Accession Number [id number] CPT4 Codes 48537 () Reason For Exam picc Report CHEST [...] Date and Time: 07/17/2018 7:24 Normal [facility] CR Chest Portable Patient Name: KATHYA HOOPER Diagnostic Radiology Exam Date/Time 07/17/2018 18:08:41 EDT Exam CR Chest Portable Ordering Physician SALO DAVIS Accession Number [id number] CPT4 Codes 07146 () Reason For Exam reheck line tip [...] Date and Time: 07/17/2018 7:21 Normal [facility] CR Chest Portable Patient Name: KATHYA HOOPER Diagnostic Radiology Exam Date/Time 07/17/2018 06:26:06 EDT Exam CR Chest Portable Ordering Physician MARIA EUGENIA PEREZ Accession Number [id number] CPT4 Codes 58085 () Reason For Exam ETT placement Report [...] Date and Time: 07/17/2018 7:17 Normal [facility] Hemogram w/ Autodiffon 07-17 Abs Baso Cnt 0.0 10*3/uL Normal 0.0-0.2 [facility] Comment on above: Performed By: #### H EMDF, PT, BMP3M, PHOS3, MG3, CK3 #### [address] [address] #### VD25 #### [facility] [address] [place] [address] Abs Neutrophile Cnt 8.1 10*3/uL High 1.8-7.0 [facility] Comment on above: Performed By: #### H EMDF, PT, BMP3M, PHOS3, MG3, CK3 #### [address] [place], [place] #### VD25H #### [facility] [address] [place] [address] Basophils/100 WBC (Bld) 0.4 % Normal 0.0-2.0 [facility] Comment on above: Performed By: #### H EMDF, PT, BMP3M, PHOS3, MG3, CK3 #### [address] #### VD25H #### [place] [address] [place] [address] Eosinophils #/vol (Bld) 0.1 10*3/uL Normal 0.0-0.5 [facility] Comment on above: Performed By: #### H EMDF, PT, BMP3M, PHOS3, MG3, CK3 #### [address] #### VD25H #### [place] [address] [place] [address] Eosinophils/100 WBC (Bld) 1.4 % Normal 1.0-6.0 [facility] Comment on above: Performed By: #### H EMDF, PT, BMP3M, PHOS3, MG3, CK3 #### [address] #### VD25H #### [facility] [address] [place] [address] Erythrocyte distribution width Ratio (RBC) 13.5 % Normal 11.5-14.5 [facility] Comment on above: Performed By: #### H EMDF, PT, BMP3M, PHOS3, MG3, CK3 #### [address] #### VD25H #### [facility] [address] [place] [address] Granulocytes/100 WBC (Bld) 78.6 % Normal 40.0-80.0 [facility] Comment on above: Performed By: #### H EMDF, PT, BMP3M, PHOS3, MG3, CK3 #### [address] #### VD25H #### [facility] [address] [place] [address] Hematocrit Volume Fraction (Bld) 31.3 % Low 40.0-52.0 [facility] Comment on above: Performed By: #### H EMDF, PT, BMP3M, PHOS3, MG3, CK3 #### [address] #### VD25H #### [facility] [address] [place] [address] Hemoglobin mass conc (Bld) 10.4 g/dL Low 13.0-18.0 [facility] Comment on above: Performed By: #### H EMDF, PT, BMP3M, PHOS3, MG3, CK3 #### [place] [address] [place], [place] #### VD25H #### [facility] [address] [place] [address] Lymphocytes #/vol (Bld) 1.0 10*3/uL Normal 1.0-4.3 [facility] Comment on above: Performed By: #### H EMDF, PT, BMP3M, PHOS3, MG3, CK3 #### [address] #### VD25H #### [facility] [address] [place] [address] Lymphocytes/100 WBC (Bld) 10.0 % Low 20.0-40.0 [facility] Comment on above: Performed By: #### H EMDF, PT, BMP3M, PHOS3, MG3, CK3 #### [address] [place], [place] #### VD25H #### [facility] [address] [place] [address] MCH Entitic mass (RBC) 29.3 pg Normal 26.0-34.0 [facility] Comment on above: Performed By: #### H EMDF, PT, BMP3M, PHOS3, MG3, CK3 #### [address] [address] [address] [place], [place] #### VD25H #### [facility] [address] [place] [address] MCHC mass conc (RBC) 33.3 % Normal 32.0-36.0 [facility] Comment on above: Performed By: #### H EMDF, PT, BMP3M, PHOS3, MG3, CK3 #### [address] #### VD25H #### [place] [address] [place] [address] MCV Entitic volume (RBC) 87.9 fL Normal 80.0-98.0 [facility] Comment on above: Performed By: #### H EMDF, PT, BMP3M, PHOS3, MG3, CK3 #### [address] #### VD25H #### [facility] [address] [place] [address] Monocytes #/vol (Bld) 1.0 10*3/uL High 0.0-0.8 [facility] Comment on above: Performed By: #### H EMDF, PT, BMP3M, PHOS3, MG3, CK3 #### [address] #### VD25H #### [facility] [address] [place] [address] Monocytes/100 WBC (Bld) 9.6 % Normal 2.0-10.0 [facility] Comment on above: Performed By: #### H EMDF, PT, BMP3M, PHOS3, MG3, CK3 #### [address] #### VD25H #### [facility] [address] [place] [address] Platelet mean volume Entitic volume (Bld) 7.6 fL Normal 7.4-10.4 [facility] Comment on above: Performed By: #### H EMDF, PT, BMP3M, PHOS3, MG3, CK3 #### [address] [place], [place] #### VD25H #### [facility] [address] [place] [address] Platelets #/vol (Bld) 307 10*3/uL Normal 140-440 [facility] Comment on above: Performed By: #### H EMDF, PT, BMP3M, PHOS3, MG3, CK3 #### [address] #### VD25H #### [place] [address] [place] [address] RBC #/vol (Bld) 3.56 10*6/uL Low 4.40-5.90 [facility] Comment on above: Performed By: #### H EMDF, PT, BMP3M, PHOS3, MG3, CK3 #### [address] #### VD25H #### [place] [address] [place] [address] WBC #/vol (Bld) 10.2 10*3/uL Normal 3.6-10.7 [facility] Comment on above: Performed By: #### H EMDF, PT, BMP3M, PHOS3, MG3, CK3 #### [address] #### VD25H #### [place] [address] [place] [address] Basic Metabolic Panelon - Calcium mass conc 8.1 mg/dL Low 8.4-10.4 [facility] Comment on above: Performed By: #### H EMDF, PT, BMP3M, PHOS3, MG3, CK3 #### [facility] [address] [place] #### VD25H #### [facility] [address] [place] [address] Anion gap molar conc 5 Normal [facility] Comment on above: Performed By: #### H EMDF, PT, BMP3M, PHOS3, MG3, CK3 #### [address] [place] [address] [address] [place] #### VD25H #### [facility] [address] [place] [address] CO2 molar conc 32 mmol/L High 22-30 [facility] Comment on above: Performed By: #### H EMDF, PT, BMP3M, PHOS3, MG3, CK3 #### [address] [place] [address] [place] #### VD25H #### [facility] [address] [place] [address] Creatinine mass conc 0.62 mg/dL Normal 0.52-1.25 [facility] Comment on above: Performed By: #### H EMDF, PT, BMP3M, PHOS3, MG3, CK3 #### [place] [address] [place] #### VD25H #### [facility] [address] [place] [address] GFR/1.73 sq M predicted among blacks MDRD vol rate/area (S/P/Bld) mL/min/{1.73_m2} Normal >60 [facility] Comment on above: Performed By: #### H EMDF, PT, BMP3M, PHOS3, MG3, CK3 #### [address] [place] [address] [address] [place] #### VD25H #### [facility] [address] [place] [address] GFR/1.73 sq M predicted among non-blacks MDRD vol rate/area (S/P/Bld) mL/min/{1.73_m2} Normal >60 [facility] Comment on above: Result Comment: Sour ce- MDRD equation with creatinine calibration to IDMS(NKDEP) eGFR not recommended for drug dose adjustment Performed By: #### H EMDF, PT, BMP3M, PHOS3, MG3, CK3 #### [facility] [address] [place] #### VD25H #### [facility] [address] [place] [address] Glucose mass conc 103 mg/dL High 70-100 [facility] Comment on above: Performed By: #### H EMDF, PT, BMP3M, PHOS3, MG3, CK3 #### [address] #### VD25H #### [facility] [address] [place] [address] Urea nitrogen mass conc 20 mg/dL Normal 7-20 [facility] Comment on above: Performed By: #### H EMDF, PT, BMP3M, PHOS3, MG3, CK3 #### [place] [address] [facility] [place] [place] #### VD25H #### [facility] [address] [place] [address] Chloride molar conc 107 mmol/L Normal 98-107 [facility] Comment on above: Performed By: #### H EMDF, PT, BMP3M, PHOS3, MG3, CK3 #### [address], [place] #### VD25H #### [facility] [address] [place] [address] Potassium molar conc 3.7 mmol/L Normal 3.5-5.1 [facility] Comment on above: Performed By: #### H EMDF, PT, BMP3M, PHOS3, MG3, CK3 #### [place] [address] [place] #### VD25H #### [facility] [address] [place] [address] Sodium molar conc 145 mmol/L Normal 135-145 [facility] Comment on above: Performed By: #### H EMDF, PT, BMP3M, PHOS3, MG3, CK3 #### [facility] [address] [place] [address] #### VD25H #### [facility] [address] [place] [address] CR Abdomen APon 07-16-2018 CR Abdomen AP Patient Name: KATHYA HOOPER Diagnostic Radiology Exam Date/Time 07/16/2018 08:00:58 EDT Exam CR Abdomen AP Ordering Physician [id number] JOYA PERRY Accession Number [id number] CPT4 Codes 97897 () Reason For Exam ileus Report KUB [...] Date and Time: 07/16/2018 10:03 Normal [facility] CR Chest Portableon 07-17-19 19 CR Chest Portable Patient Name: KATHYA HOOPER Diagnostic Radiology Exam Date/Time 07/16/2018 06:19:28 EDT Exam CR Chest Portable Ordering Physician MARIA EUGENIA PEREZ Accession Number [id number] CPT4 Codes 72482 () Reason For Exam ETT placement Report [...] Date and Time: 07/16/2018 10:10 Normal [facility] Hemogram w/ Autodiffon 07-16 Abs Baso Cnt 0.0 10*3/uL Normal 0.0-0.2 [facility] Comment on above: Performed By: #### H EMDF, PT, BMP3M, PHOS3, MG3, CK3 #### [facility] [address] [place] [address] #### VD25H #### [facility] [address] [place] [address] Abs Neutrophile Cnt 8.7 10*3/uL High 1.8-7.0 [facility] Comment on above: Performed By: #### H EMDF, PT, BMP3M, PHOS3, MG3, CK3 #### [facility] [address] [place] [address] #### VD25H #### [facility] [address] [place] [address] Basophils/100 WBC (Bld) 0.2 % Normal 0.0-2.0 [facility] Comment on above: Performed By: #### H EMDF, PT, BMP3M, PHOS3, MG3, CK3 #### [address] [place], [place] #### VD25H #### [facility] [address] [place] [address] Eosinophils #/vol (Bld) 0.1 10*3/uL Normal 0.0-0.5 [facility] Comment on above: Performed By: #### H EMDF, PT, BMP3M, PHOS3, MG3, CK3 #### [address] [place], [place] #### VD25H #### [facility] [address] [place] [address] Eosinophils/100 WBC (Bld) 0.7 % Low 1.0-6.0 [facility] Comment on above: Performed By: #### H EMDF, PT, BMP3M, PHOS3, MG3, CK3 #### [address] #### VD25H #### [facility] [address] [place] [address] Erythrocyte distribution width Ratio (RBC) 13.7 % Normal 11.5-14.5 [facility] Comment on above: Performed By: #### H EMDF, PT, BMP3M, PHOS3, MG3, CK3 #### [address] #### VD25H #### [facility] [address] [place] [address] Granulocytes/100 WBC (Bld) 83.0 % High 40.0-80.0 [facility] Comment on above: Performed By: #### H EMDF, PT, BMP3M, PHOS3, MG3, CK3 #### [address] #### VD25H #### [facility] [address] [place] [address] Hematocrit Volume Fraction (Bld) 30.3 % Low 40.0-52.0 [facility] Comment on above: Performed By: #### H EMDF, PT, BMP3M, PHOS3, MG3, CK3 #### [address] [address] [place] #### VD25H #### [facility] [address] [place] [address] Hemoglobin mass conc (Bld) 10.5 g/dL Low 13.0-18.0 [facility] Comment on above: Performed By: #### H EMDF, PT, BMP3M, PHOS3, MG3, CK3 #### [address] [address] [place] #### VD25H #### [facility] [address] [place] [address] Lymphocytes #/vol (Bld) 0.7 10*3/uL Low 1.0-4.3 [facility] Comment on above: Performed By: #### H EMDF, PT, BMP3M, PHOS3, MG3, CK3 #### [address] #### VD25H #### [facility] [address] [place] [address] Lymphocytes/100 WBC (Bld) 6.7 % Low 20.0-40.0 [facility] Comment on above: Performed By: #### H EMDF, PT, BMP3M, PHOS3, MG3, CK3 #### [address] #### VD25H #### [facility] [address] [place] [address] MCH Entitic mass (RBC) 30.2 pg Normal 26.0-34.0 [facility] Comment on above: Performed By: #### H EMDF, PT, BMP3M, PHOS3, MG3, CK3 #### [address] #### VD25H #### [facility] [address] [place] [address] MCHC mass conc (RBC) 34.6 % Normal 32.0-36.0 [facility] Comment on above: Performed By: #### H EMDF, PT, BMP3M, PHOS3, MG3, CK3 #### [address] #### VD25H #### [facility] [address] [place] [address] MCV Entitic volume (RBC) 87.3 fL Normal 80.0-98.0 [facility] Comment on above: Performed By: #### H EMDF, PT, BMP3M, PHOS3, MG3, CK3 #### [address] #### VD25H #### [place] [address] [place] [address] Monocytes #/vol (Bld) 1.0 10*3/uL High 0.0-0.8 [facility] Comment on above: Performed By: #### H EMDF, PT, BMP3M, PHOS3, MG3, CK3 #### [address] #### VD25H #### [facility] [address] [place] [address] Monocytes/100 WBC (Bld) 9.4 % Normal 2.0-10.0 [facility] Comment on above: Performed By: #### H EMDF, PT, BMP3M, PHOS3, MG3, CK3 #### [address] #### VD25H #### [facility] [address] [place] [address] Platelet mean volume Entitic volume (Bld) 6.9 fL Low 7.4-10.4 [facility] Comment on above: Performed By: #### H EMDF, PT, BMP3M, PHOS3, MG3, CK3 #### [address] #### VD25H #### [facility] [address] [place] [address] Platelets #/vol (Bld) 254 10*3/uL Normal 140-440 [facility] Comment on above: Performed By: #### H EMDF, PT, BMP3M, PHOS3, MG3, CK3 #### [facility] [address] [place], [place] #### VD25H #### [facility] [address] [place] [address] RBC #/vol (Bld) 3.47 10*6/uL Low 4.40-5.90 [facility] Comment on above: Performed By: #### H EMDF, PT, BMP3M, PHOS3, MG3, CK3 #### [address] #### VD25H #### [facility] [address] [place] [address] WBC #/vol (Bld) 10.5 10*3/uL Normal 3.6-10.7 [facility] Comment on above: Performed By: #### H EMDF, PT, BMP3M, PHOS3, MG3, CK3 #### [address] #### VD25H #### [facility] [address] [place] [address] Arterial Blood Gaseson 07-15 CO2 molar conc 26.7 mmol/L Normal 23.0-27.0 [facility] Comment on above: Performed By: #### H EMDF, PT, BMP3M, PHOS3, MG3, CK3 #### [address] #### VD25H #### [facility] [address] [place] [address] FIO2 50% Normal [facility] Comment on above: Performed By: #### H EMDF, PT, BMP3M, PHOS3, MG3, CK3 #### [address] #### VD25H #### [place] [address] [place] [address] HCO3 molar conc (Bld) 25.7 mmol/L High 21.0-25.0 [facility] Comment on above: Performed By: #### H EMDF, PT, BMP3M, PHOS3, MG3, CK3 #### [address] #### VD25H #### [facility] [address] [place] [address] Hemoglobin mass conc (Bld) 12.5 g/dL Normal ScreenOnly [facility] Comment on above: Performed By: #### H EMDF, PT, BMP3M, PHOS3, MG3, CK3 #### [address] #### VD25H #### [place] [address] [place] [address] Oxygen ppres (Bld) 90.4 mm[Hg] Normal 80.0-100.0 [facility] Comment on above: Performed By: #### H EMDF, PT, BMP3M, PHOS3, MG3, CK3 #### [address] #### VD25H #### [place] [address] [place] [address] Oxygen saturation in Blood 96.8 % Normal 95.0-100.0 [facility] Comment on above: Performed By: #### H EMDF, PT, BMP3M, PHOS3, MG3, CK3 #### [address] #### VD25H #### [facility] [address] [place] [address] pCO2 33.4 mm[Hg] Low 35.0-45.0 [facility] Comment on above: Performed By: #### H EMDF, PT, BMP3M, PHOS3, MG3, CK3 #### [address] #### VD25H #### [facility] [address] [place] [address] pH (Bld) 7.504 High 7.350-7.450 [facility] Comment on above: Performed By: #### H EMDF, PT, BMP3M, PHOS3, MG3, CK3 #### [address] [place] [address] [place] #### VD25H #### [facility] [address] [place] [address] Std Base Excess 2.9 mmol/L Normal -3.0-3.0 [facility] Comment on above: Performed By: #### H EMDF, PT, BMP3M, PHOS3, MG3, CK3 #### [address] [place] [address] [place] #### VD25H #### [place] [address] [place] [address] Basic Metabolic Panelon 06-29 Anion gap molar conc 8 Normal [facility] Comment on above: Performed By: #### H EMDF, PT, BMP3M, PHOS3, MG3, CK3 #### [address] [place] [address] [place] #### VD25H #### [place] [address] [place] [address] Calcium mass conc 8.6 mg/dL Normal 8.4-10.4 [facility] Comment on above: Performed By: #### H EMDF, PT, BMP3M, PHOS3, MG3, CK3 #### [address] [place] [address] [place] #### VD25H #### [facility] [address] [place] [address] CO2 molar conc 29 mmol/L Normal 22-30 [facility] Comment on above: Performed By: #### H EMDF, PT, BMP3M, PHOS3, MG3, CK3 #### [address] [place] [address] [place] #### VD25H #### [place] [address] [place] [address] Glucose mass conc 119 mg/dL High 70-100 [facility] Comment on above: Performed By: #### H EMDF, PT, BMP3M, PHOS3, MG3, CK3 #### [facility] [address] [place] [address] #### VD25H #### [facility] [address] [place] [address] Urea nitrogen mass conc 23 mg/dL High 7-20 [facility] Comment on above: Performed By: #### H EMDF, PT, BMP3M, PHOS3, MG3, CK3 #### [address] [address] #### VD25H #### [facility] [address] [place] [address] Creatinine mass conc 0.73 mg/dL Normal 0.52-1.25 [facility] Comment on above: Performed By: #### H EMDF, PT, BMP3M, PHOS3, MG3, CK3 #### [address] [address] #### VD25H #### [facility] [address] [place] [address] GFR/1.73 sq M predicted among blacks MDRD vol rate/area (S/P/Bld) mL/min/{1.73_m2} Normal >60 [facility] Comment on above: Performed By: #### H EMDF, PT, BMP3M, PHOS3, MG3, CK3 #### [address] [address] #### VD25H #### [facility] [address] [place] [address] GFR/1.73 sq M predicted among non-blacks MDRD vol rate/area (S/P/Bld) mL/min/{1.73_m2} Normal >60 [facility] Comment on above: Result Comment: Sour ce- MDRD equation with creatinine calibration to IDMS(NKDEP) eGFR not recommended for drug dose adjustment Performed By: #### H EMDF, PT, BMP3M, PHOS3, MG3, CK3 #### [facility] [address] [place] [facility] [place] [address] #### VD25H #### [facility] [address] [place] [address] Potassium molar conc 4.1 mmol/L Normal 3.5-5.1 [facility] Comment on above: Performed By: #### H EMDF, PT, BMP3M, PHOS3, MG3, CK3 #### [facility] [address] [place] [facility] [place] [address] #### VD25H #### [facility] [address] [place] [address] Sodium molar conc 144 mmol/L Normal 135-145 [facility] Comment on above: Performed By: #### H EMDF, PT, BMP3M, PHOS3, MG3, CK3 #### [facility] [address] [place] [facility] [place] [address] #### VD25H #### [facility] [address] [place] [address] Chloride molar conc 107 mmol/L Normal 98-107 [facility] Comment on above: Performed By: #### H EMDF, PT, BMP3M, PHOS3, MG3, CK3 #### [facility] [address] [place] [facility] [place] [address] #### VD25H #### [facility] [address] [place] [address] CR Abdomen APon 07-15-2018 CR Abdomen AP Patient Name: KATHYA HOOPER Diagnostic Radiology Exam Date/Time 07/15/2018 09:25:44 EDT Exam CR Abdomen AP Ordering Physician JOYA ROJAS Accession Number [id number] CPT4 Codes 33697 () Reason For Exam ileus Report EXAMINATION: [...] Date and Time: 07/15/2018 10:07 Normal [facility] CR Chest Portableon 07-16-19 19 CR Chest Portable Patient Name: KATHYA HOOPER Diagnostic Radiology Exam Date/Time 07/15/2018 06:00:00 EDT Exam CR Chest Portable Ordering Physician MARIA EUGENIA PEREZ Accession Number [id number] CPT4 Codes 70849 () Reason For Exam ETT placement Report [...] Date and Time: 07/15/2018 9:14 Normal [facility] CULT./ST. RESPIRATORYon 06-29 CULT./ST. RESPIRATORY CULT./ST. [...] clusters. Rare gram negative bacilli. Normal [facility] Comment on above: Order Comment: Speci men Source Comment:Sputum, Suctioned Performed By: #### H EMDF, PT, BMP3M, PHOS3, MG3, CK3 #### [facility] [address] [place], [place] #### VD25H #### [facility] [address] [place] [address] Hemogram w/ Autodiffon 07-15 Abs Baso Cnt 0.0 10*3/uL Normal 0.0-0.2 [facility] Comment on above: Performed By: #### H EMDF, PT, BMP3M, PHOS3, MG3, CK3 #### [facility] [address] [place], [place] #### VD25H #### [facility] [address] [place] [address] Abs Neutrophile Cnt 13.2 10*3/uL High 1.8-7.0 [facility] Comment on above: Performed By: #### H EMDF, PT, BMP3M, PHOS3, MG3, CK3 #### [address] #### VD25H #### [facility] [address] [place] [address] Basophils/100 WBC (Bld) 0.2 % Normal 0.0-2.0 [facility] Comment on above: Performed By: #### H EMDF, PT, BMP3M, PHOS3, MG3, CK3 #### [address] #### VD25H #### [facility] [address] [place] [address] Eosinophils #/vol (Bld) 0.0 10*3/uL Normal 0.0-0.5 [facility] Comment on above: Performed By: #### H EMDF, PT, BMP3M, PHOS3, MG3, CK3 #### [facility] [address] [place], [place] #### VD25H #### [facility] [address] [place] [address] Eosinophils/100 WBC (Bld) 0.1 % Low 1.0-6.0 [facility] Comment on above: Performed By: #### H EMDF, PT, BMP3M, PHOS3, MG3, CK3 #### [address] #### VD25H #### [facility] [address] [place] [address] Erythrocyte distribution width Ratio (RBC) 13.9 % Normal 11.5-14.5 [facility] Comment on above: Performed By: #### H EMDF, PT, BMP3M, PHOS3, MG3, CK3 #### [address] #### VD25H #### [facility] [address] [place] [address] Granulocytes/100 WBC (Bld) 88.1 % High 40.0-80.0 [facility] Comment on above: Performed By: #### H EMDF, PT, BMP3M, PHOS3, MG3, CK3 #### [address] #### VD25H #### [facility] [address] [place] [address] Hematocrit Volume Fraction (Bld) 35.3 % Low 40.0-52.0 [facility] Comment on above: Performed By: #### H EMDF, PT, BMP3M, PHOS3, MG3, CK3 #### [address] #### VD25H #### [facility] [address] [place] [address] Hemoglobin mass conc (Bld) 11.9 g/dL Low 13.0-18.0 [facility] Comment on above: Performed By: #### H EMDF, PT, BMP3M, PHOS3, MG3, CK3 #### [place] [address] [place], [place] #### VD25H #### [facility] [address] [place] [address] Lymphocytes #/vol (Bld) 0.8 10*3/uL Low 1.0-4.3 [facility] Comment on above: Performed By: #### H EMDF, PT, BMP3M, PHOS3, MG3, CK3 #### [address] #### VD25H #### [facility] [address] [place] [address] Lymphocytes/100 WBC (Bld) 5.0 % Low 20.0-40.0 [facility] Comment on above: Performed By: #### H EMDF, PT, BMP3M, PHOS3, MG3, CK3 #### [address] #### VD25H #### [facility] [address] [place] [address] MCH Entitic mass (RBC) 29.5 pg Normal 26.0-34.0 [facility] Comment on above: Performed By: #### H EMDF, PT, BMP3M, PHOS3, MG3, CK3 #### [address] [place], [place] #### VD25H #### [facility] [address] [place] [address] MCHC mass conc (RBC) 33.8 % Normal 32.0-36.0 [facility] Comment on above: Performed By: #### H EMDF, PT, BMP3M, PHOS3, MG3, CK3 #### [address] #### VD25H #### [facility] [address] [place] [address] MCV Entitic volume (RBC) 87.2 fL Normal 80.0-98.0 [facility] Comment on above: Performed By: #### H EMDF, PT, BMP3M, PHOS3, MG3, CK3 #### [facility] [address] [place], [place] #### VD25H #### [facility] [address] [place] [address] Monocytes #/vol (Bld) 1.0 10*3/uL High 0.0-0.8 [facility] Comment on above: Performed By: #### H EMDF, PT, BMP3M, PHOS3, MG3, CK3 #### [address] #### VD25H #### [facility] [address] [place] [address] Monocytes/100 WBC (Bld) 6.6 % Normal 2.0-10.0 [facility] Comment on above: Performed By: #### H EMDF, PT, BMP3M, PHOS3, MG3, CK3 #### [address] #### VD25H #### [facility] [address] [place] [address] Platelet mean volume Entitic volume (Bld) 7.9 fL Normal 7.4-10.4 [facility] Comment on above: Performed By: #### H EMDF, PT, BMP3M, PHOS3, MG3, CK3 #### [address] #### VD25H #### [facility] [address] [place] [address] Platelets #/vol (Bld) 319 10*3/uL Normal 140-440 [facility] Comment on above: Performed By: #### H EMDF, PT, BMP3M, PHOS3, MG3, CK3 #### [address] #### VD25H #### [facility] [address] [place] [address] RBC #/vol (Bld) 4.05 10*6/uL Low 4.40-5.90 [facility] Comment on above: Performed By: #### H EMDF, PT, BMP3M, PHOS3, MG3, CK3 #### [place] [address] [place], [place] #### VD25H #### [facility] [address] [place] [address] WBC #/vol (Bld) 15.0 10*3/uL High 3.6-10.7 [facility] Comment on above: Performed By: #### H EMDF, PT, BMP3M, PHOS3, MG3, CK3 #### [address] #### VD25H #### [place] [address] [place] [address] Basic Metabolic Panelon 06-29 Anion gap molar conc 9 Normal [facility] Comment on above: Performed By: #### H EMDF, PT, BMP3M, PHOS3, MG3, CK3 #### [address] #### VD25H #### [place] [address] [place] [address] Calcium mass conc 7.6 mg/dL Low 8.4-10.4 [facility] Comment on above: Performed By: #### H EMDF, PT, BMP3M, PHOS3, MG3, CK3 #### [address] #### VD25H #### [facility] [address] [place] [address] CO2 molar conc 26 mmol/L Normal 22-30 [facility] Comment on above: Performed By: #### H EMDF, PT, BMP3M, PHOS3, MG3, CK3 #### [address] [place] [address] [place] #### VD25H #### [facility] [address] [place] [address] Glucose mass conc 148 mg/dL High 70-100 [facility] Comment on above: Performed By: #### H EMDF, PT, BMP3M, PHOS3, MG3, CK3 #### [address] #### VD25H #### [facility] [address] [place] [address] Urea nitrogen mass conc 16 mg/dL Normal 7-20 [facility] Comment on above: Performed By: #### H EMDF, PT, BMP3M, PHOS3, MG3, CK3 #### [address] #### VD25H #### [place] [address] [place] [address] Creatinine mass conc 0.62 mg/dL Normal 0.52-1.25 [facility] Comment on above: Performed By: #### H EMDF, PT, BMP3M, PHOS3, MG3, CK3 #### [address] #### VD25H #### [place] [address] [place] [address] GFR/1.73 sq M predicted among blacks MDRD vol rate/area (S/P/Bld) mL/min/{1.73_m2} Normal >60 [facility] Comment on above: Performed By: #### H EMDF, PT, BMP3M, PHOS3, MG3, CK3 #### [address] #### VD25H #### [place] [address] [place] [address] GFR/1.73 sq M predicted among non-blacks MDRD vol rate/area (S/P/Bld) mL/min/{1.73_m2} Normal >60 [facility] Comment on above: Result Comment: Sour ce- MDRD equation with creatinine calibration to IDMS(NKDEP) eGFR not recommended for drug dose adjustment Performed By: #### H EMDF, PT, BMP3M, PHOS3, MG3, CK3 #### [facility] [address] [place] [address] #### VD25H #### [facility] [address] [place] [address] Potassium molar conc 4.5 mmol/L Normal 3.5-5.1 [facility] Comment on above: Performed By: #### H EMDF, PT, BMP3M, PHOS3, MG3, CK3 #### [facility] [address] [place] [address] #### VD25H #### [facility] [address] [place] [address] Sodium molar conc 137 mmol/L Normal 135-145 [facility] Comment on above: Performed By: #### H EMDF, PT, BMP3M, PHOS3, MG3, CK3 #### [facility] [address] [place] [facility] [place] [address] #### VD25H #### [facility] [address] [place] [address] Chloride molar conc 103 mmol/L Normal 98-107 [facility] Comment on above: Performed By: #### H EMDF, PT, BMP3M, PHOS3, MG3, CK3 #### [facility] [address] [place] [address] #### VD25H #### [facility] [address] [place] [address] CR Abdomen APon 07-14-2018 CR Abdomen AP Patient Name: KATHYA HOOPER Diagnostic Radiology Exam Date/Time 07/14/2018 19:15:43 EDT Exam CR Abdomen AP Ordering Physician [id number] AGUILERA Accession Number [id number] CPT4 Codes 78951 () Reason For Exam Distended with emesis [...] Date and Time: 07/14/2018 7:28 Normal [facility] CR Chest Portableon 07-15-19 19 CR Chest Portable Patient Name: KATHYA HOOPER Diagnostic Radiology Exam Date/Time 07/14/2018 06:53:29 EDT Exam CR Chest Portable Ordering Physician MARIA EUGENIA PEREZ Accession Number [id number] CPT4 Codes 03891 () Reason For Exam ETT placement Report [...] Date and Time: 07/14/2018 11:51 Normal [facility] Hemogram w/ Autodiffon 07-14 Abs Baso Cnt 0.0 10*3/uL Normal 0.0-0.2 [facility] Comment on above: Performed By: #### H EMDF, PT, BMP3M, PHOS3, MG3, CK3 #### [address] #### VD25H #### [facility] [address] [place] [address] Abs Neutrophile Cnt 11.7 10*3/uL High 1.8-7.0 [facility] Comment on above: Performed By: #### H EMDF, PT, BMP3M, PHOS3, MG3, CK3 #### [address] #### VD25H #### [facility] [address] [place] [address] Basophils/100 WBC (Bld) 0.3 % Normal 0.0-2.0 [facility] Comment on above: Performed By: #### H EMDF, PT, BMP3M, PHOS3, MG3, CK3 #### [address] #### VD25H #### [facility] [address] [place] [address] Eosinophils #/vol (Bld) 0.0 10*3/uL Normal 0.0-0.5 [facility] Comment on above: Performed By: #### H EMDF, PT, BMP3M, PHOS3, MG3, CK3 #### [address] #### VD25H #### [facility] [address] [place] [address] Eosinophils/100 WBC (Bld) 0.1 % Low 1.0-6.0 [facility] Comment on above: Performed By: #### H EMDF, PT, BMP3M, PHOS3, MG3, CK3 #### [address] #### VD25H #### [facility] [address] [place] [address] Erythrocyte distribution width Ratio (RBC) 13.8 % Normal 11.5-14.5 [facility] Comment on above: Performed By: #### H EMDF, PT, BMP3M, PHOS3, MG3, CK3 #### [facility] [address] [place] #### VD25H #### [facility] [address] [place] [address] Granulocytes/100 WBC (Bld) 89.1 % High 40.0-80.0 [facility] Comment on above: Performed By: #### H EMDF, PT, BMP3M, PHOS3, MG3, CK3 #### [place] [address] [place] #### VD25H #### [facility] [address] [place] [address] Hematocrit Volume Fraction (Bld) 33.8 % Low 40.0-52.0 [facility] Comment on above: Performed By: #### H EMDF, PT, BMP3M, PHOS3, MG3, CK3 #### [address] #### VD25H #### [facility] [address] [place] [address] Hemoglobin mass conc (Bld) 11.5 g/dL Low 13.0-18.0 [facility] Comment on above: Performed By: #### H EMDF, PT, BMP3M, PHOS3, MG3, CK3 #### [address] [place] #### VD25H #### [facility] [address] [place] [address] Lymphocytes #/vol (Bld) 0.6 10*3/uL Low 1.0-4.3 [facility] Comment on above: Performed By: #### H EMDF, PT, BMP3M, PHOS3, MG3, CK3 #### [place] [address] [place] #### VD25H #### [facility] [address] [place] [place] [address] Lymphocytes/100 WBC (Bld) 4.5 % Low 20.0-40.0 [facility] Comment on above: Performed By: #### H EMDF, PT, BMP3M, PHOS3, MG3, CK3 #### [address] #### VD25H #### [facility] [address] [place] [address] MCH Entitic mass (RBC) 29.6 pg Normal 26.0-34.0 [facility] Comment on above: Performed By: #### H EMDF, PT, BMP3M, PHOS3, MG3, CK3 #### [address] #### VD25H #### [place] [address] [place] [address] MCHC mass conc (RBC) 33.9 % Normal 32.0-36.0 [facility] Comment on above: Performed By: #### H EMDF, PT, BMP3M, PHOS3, MG3, CK3 #### [address] #### VD25H #### [facility] [address] [facility] [address] MCV Entitic volume (RBC) 87.3 fL Normal 80.0-98.0 [facility] Comment on above: Performed By: #### H EMDF, PT, BMP3M, PHOS3, MG3, CK3 #### [address] #### VD25H #### [facility] [address] [place] [address] Monocytes #/vol (Bld) 0.8 10*3/uL Normal 0.0-0.8 [facility] Comment on above: Performed By: #### H EMDF, PT, BMP3M, PHOS3, MG3, CK3 #### [address] #### VD25H #### [facility] [address] [place] [address] Monocytes/100 WBC (Bld) 6.0 % Normal 2.0-10.0 [facility] Comment on above: Performed By: #### H EMDF, PT, BMP3M, PHOS3, MG3, CK3 #### [place] [address] [place] #### VD25H #### [facility] [address] [place] [address] Platelet mean volume Entitic volume (Bld) 8.1 fL Normal 7.4-10.4 [facility] Comment on above: Performed By: #### H EMDF, PT, BMP3M, PHOS3, MG3, CK3 #### [address] #### VD25H #### [place] [address] [place] [address] Platelets #/vol (Bld) 196 10*3/uL Normal 140-440 [facility] Comment on above: Performed By: #### H EMDF, PT, BMP3M, PHOS3, MG3, CK3 #### [address] #### VD25H #### [place] [address] [place] [address] RBC #/vol (Bld) 3.87 10*6/uL Low 4.40-5.90 [facility] Comment on above: Performed By: #### H EMDF, PT, BMP3M, PHOS3, MG3, CK3 #### [address] #### VD25H #### [facility] [address] [place] [address] WBC #/vol (Bld) 13.2 10*3/uL High 3.6-10.7 [facility] Comment on above: Performed By: #### H EMDF, PT, BMP3M, PHOS3, MG3, CK3 #### [facility] [address] [place] #### VD25H #### [facility] [address] [place] [address] Add on test from HISon 07-13 Add on test from HIS Rejected Normal [facility] Comment on above: Result Comment: No s pecimen available for addon. Performed By: #### H EMDF, PT, BMP3M, PHOS3, MG3, CK3 #### [place] [place], [place] #### VD25H #### [facility] [address] [place] [address] Arterial Blood Gaseson 07-13 CO2 molar conc 25.6 mmol/L Normal 23.0-27.0 [facility] Comment on above: Performed By: #### H EMDF, PT, BMP3M, PHOS3, MG3, CK3 #### [place] [place] #### VD25H #### [facility] [address] [place] [address] HCO3 molar conc (Bld) 24.5 mmol/L Normal 21.0-25.0 [facility] Comment on above: Performed By: #### H EMDF, PT, BMP3M, PHOS3, MG3, CK3 #### [place] [place] #### VD25H #### [facility] [address] [place] [address] Hemoglobin mass conc (Bld) 9.7 g/dL Normal ScreenOnly [facility] Comment on above: Performed By: #### H EMDF, PT, BMP3M, PHOS3, MG3, CK3 #### [address] [place] #### VD25H #### [facility] [address] [place] [address] Oxygen ppres (Bld) 99.9 mm[Hg] Normal 80.0-100.0 [facility] Comment on above: Performed By: #### H EMDF, PT, BMP3M, PHOS3, MG3, CK3 #### [place] [address] [place] #### VD25H #### [facility] [address] [place] [address] Oxygen saturation in Blood 97.5 % Normal 95.0-100.0 [facility] Comment on above: Performed By: #### H EMDF, PT, BMP3M, PHOS3, MG3, CK3 #### [place] [place] #### VD25H #### [facility] [address] [place] [address] pCO2 36.0 mm[Hg] Normal 35.0-45.0 [facility] Comment on above: Performed By: #### H EMDF, PT, BMP3M, PHOS3, MG3, CK3 #### [place] [place] #### VD25H #### [facility] [address] [place] [address] pH (Bld) 7.450 Normal 7.350-7.450 [facility] Comment on above: Performed By: #### H EMDF, PT, BMP3M, PHOS3, MG3, CK3 #### [address] #### VD25H #### [facility] [address] [place] [address] Std Base Excess 0.6 mmol/L Normal -3.0-3.0 [facility] Comment on above: Performed By: #### H EMDF, PT, BMP3M, PHOS3, MG3, CK3 #### [address] [facility] #### VD25H #### [facility] [address] [place] [address] FIO2 .50 Normal [facility] Comment on above: Performed By: #### H EMDF, PT, BMP3M, PHOS3, MG3, CK3 #### [place] [address] [facility] #### VD25H #### [facility] [address] [place] [address] Basic Metabolic Panelon 06-29 Calcium mass conc 7.6 mg/dL Low 8.4-10.4 [facility] Comment on above: Performed By: #### H EMDF, PT, BMP3M, PHOS3, MG3, CK3 #### [place] [facility] #### VD25H #### [facility] [address] [place] [address] Glucose mass conc 120 mg/dL High 70-100 [facility] Comment on above: Performed By: #### H EMDF, PT, BMP3M, PHOS3, MG3, CK3 #### [place] [address] [facility] #### VD25H #### [facility] [address] [place] [address] Anion gap molar conc 7 Normal [facility] Comment on above: Performed By: #### H EMDF, PT, BMP3M, PHOS3, MG3, CK3 #### [place] [address] [facility] #### VD25H #### [facility] [address] [place] [address] CO2 molar conc 27 mmol/L Normal 22-30 [facility] Comment on above: Performed By: #### H EMDF, PT, BMP3M, PHOS3, MG3, CK3 #### [place] [address] [facility] #### VD25H #### [facility] [address] [place] [address] Creatinine mass conc 0.62 mg/dL Normal 0.52-1.25 [facility] Comment on above: Performed By: #### H EMDF, PT, BMP3M, PHOS3, MG3, CK3 #### [facility] [address] [place] [facility] [place] [place] [address] #### VD25H #### [facility] [address] [place] [address] GFR/1.73 sq M predicted among blacks MDRD vol rate/area (S/P/Bld) mL/min/{1.73_m2} Normal >60 [facility] Comment on above: Performed By: #### H EMDF, PT, BMP3M, PHOS3, MG3, CK3 #### [place] [address] [place] [facility] [place] [address] #### VD25H #### [facility] [address] [place] [address] GFR/1.73 sq M predicted among non-blacks MDRD vol rate/area (S/P/Bld) mL/min/{1.73_m2} Normal >60 [facility] Comment on above: Result Comment: Sour ce- MDRD equation with creatinine calibration to IDMS(NKDEP) eGFR not recommended for drug dose adjustment Performed By: #### H EMDF, PT, BMP3M, PHOS3, MG3, CK3 #### [place] [address] [facility] #### VD25H #### [facility] [address] [place] [address] Urea nitrogen mass conc 17 mg/dL Normal 7-20 [facility] Comment on above: Performed By: #### H EMDF, PT, BMP3M, PHOS3, MG3, CK3 #### [place] [address] [place] [facility] [place] [address] #### VD25H #### [facility] [address] [place] [address] Chloride molar conc 105 mmol/L Normal 98-107 [facility] Comment on above: Performed By: #### H EMDF, PT, BMP3M, PHOS3, MG3, CK3 #### [place] [address] [facility] #### VD25H #### [facility] [address] [place] [address] Potassium molar conc 3.8 mmol/L Normal 3.5-5.1 [facility] Comment on above: Performed By: #### H EMDF, PT, BMP3M, PHOS3, MG3, CK3 #### [facility] [address] [place] [address] #### VD25H #### [facility] [address] [place] [address] Sodium molar conc 139 mmol/L Normal 135-145 [facility] Comment on above: Performed By: #### H EMDF, PT, BMP3M, PHOS3, MG3, CK3 #### [facility] [address] [place] [address] #### VD25H #### [facility] [address] [place] [address] CR Chest Portableon 07-14-19 CR Chest Portable Patient Name: KATHYA HOOPER Diagnostic Radiology Exam Date/Time 07/13/2018 06:05:45 EDT Exam CR Chest Portable Ordering Physician MARIA EUGENIA PEREZ Accession Number [id number] CPT4 Codes 79529 () Reason For Exam ETT placement Report [...] Date and Time: 07/13/2018 6:33 Normal [facility] Calcium,Ionizedon 07-13-2018 Ionized Ca,Measured 4.10 mg/dL Low 4.30-5.20 [facility] Comment on above: Performed By: #### H EMDF, PT, BMP3M, PHOS3, MG3, CK3 #### [address] #### VD25H #### [facility] [address] [place] [address] pH, Ionized Calcium 7.40 Normal 7.31-7.46 [facility] Comment on above: Performed By: #### H EMDF, PT, BMP3M, PHOS3, MG3, CK3 #### [address] #### VD25H #### [facility] [address] [place] [address] Hemogram w/ Autodiffon 07-13 Abs Baso Cnt 0.0 10*3/uL Normal 0.0-0.2 [facility] Comment on above: Performed By: #### H EMDF, PT, BMP3M, PHOS3, MG3, CK3 #### [place] [address] [place] #### VD25H #### [facility] [address] [place] [address] Abs Neutrophile Cnt 11.2 10*3/uL High 1.8-7.0 [facility] Comment on above: Performed By: #### H EMDF, PT, BMP3M, PHOS3, MG3, CK3 #### [address] #### VD25H #### [facility] [address] [place] [address] Basophils/100 WBC (Bld) 0.3 % Normal 0.0-2.0 [facility] Comment on above: Performed By: #### H EMDF, PT, BMP3M, PHOS3, MG3, CK3 #### [facility] [address] [place] #### VD25H #### [facility] [address] [place] [address] Eosinophils #/vol (Bld) 0.2 10*3/uL Normal 0.0-0.5 [facility] Comment on above: Performed By: #### H EMDF, PT, BMP3M, PHOS3, MG3, CK3 #### [address] #### VD25H #### [facility] [address] [place] [address] Eosinophils/100 WBC (Bld) 1.1 % Normal 1.0-6.0 [facility] Comment on above: Performed By: #### H EMDF, PT, BMP3M, PHOS3, MG3, CK3 #### [address] #### VD25H #### [facility] [address] [place] [address] Erythrocyte distribution width Ratio (RBC) 13.9 % Normal 11.5-14.5 [facility] Comment on above: Performed By: #### H EMDF, PT, BMP3M, PHOS3, MG3, CK3 #### [address] #### VD25H #### [facility] [address] [place] [address] Granulocytes/100 WBC (Bld) 82.2 % High 40.0-80.0 [facility] Comment on above: Performed By: #### H EMDF, PT, BMP3M, PHOS3, MG3, CK3 #### [address] #### VD25H #### [facility] [address] [place] [address] Hematocrit Volume Fraction (Bld) 36.7 % Low 40.0-52.0 [facility] Comment on above: Performed By: #### H EMDF, PT, BMP3M, PHOS3, MG3, CK3 #### [facility] [address] [place] #### VD25H #### [facility] [address] [place] [address] Hemoglobin mass conc (Bld) 12.6 g/dL Low 13.0-18.0 [facility] Comment on above: Performed By: #### H EMDF, PT, BMP3M, PHOS3, MG3, CK3 #### [address] #### VD25H #### [facility] [address] [place] [address] Lymphocytes #/vol (Bld) 1.1 10*3/uL Normal 1.0-4.3 [facility] Comment on above: Performed By: #### H EMDF, PT, BMP3M, PHOS3, MG3, CK3 #### [address] #### VD25H #### [facility] [address] [place] [address] Lymphocytes/100 WBC (Bld) 8.2 % Low 20.0-40.0 [facility] Comment on above: Performed By: #### H EMDF, PT, BMP3M, PHOS3, MG3, CK3 #### [address] [place] #### VD25H #### [facility] [address] [place] [address] MCH Entitic mass (RBC) 29.6 pg Normal 26.0-34.0 [facility] Comment on above: Performed By: #### H EMDF, PT, BMP3M, PHOS3, MG3, CK3 #### [address] #### VD25H #### [facility] [address] [place] [address] MCHC mass conc (RBC) 34.4 % Normal 32.0-36.0 [facility] Comment on above: Performed By: #### H EMDF, PT, BMP3M, PHOS3, MG3, CK3 #### [address] #### VD25H #### [facility] [address] [place] [address] MCV Entitic volume (RBC) 86.2 fL Normal 80.0-98.0 [facility] Comment on above: Performed By: #### H EMDF, PT, BMP3M, PHOS3, MG3, CK3 #### [address] #### VD25H #### [facility] [address] [place] [address] Monocytes #/vol (Bld) 1.1 10*3/uL High 0.0-0.8 [facility] Comment on above: Performed By: #### H EMDF, PT, BMP3M, PHOS3, MG3, CK3 #### [address] #### VD25H #### [facility] [address] [place] [address] Monocytes/100 WBC (Bld) 8.2 % Normal 2.0-10.0 [facility] Comment on above: Performed By: #### H EMDF, PT, BMP3M, PHOS3, MG3, CK3 #### [address] #### VD25H #### [facility] [address] [place] [address] Platelet mean volume Entitic volume (Bld) 8.1 fL Normal 7.4-10.4 [facility] Comment on above: Performed By: #### H EMDF, PT, BMP3M, PHOS3, MG3, CK3 #### [address] #### VD25H #### [facility] [address] [place] [address] Platelets #/vol (Bld) 194 10*3/uL Normal 140-440 [facility] Comment on above: Performed By: #### H EMDF, PT, BMP3M, PHOS3, MG3, CK3 #### [address] #### VD25H #### [facility] [address] [place] [address] RBC #/vol (Bld) 4.26 10*6/uL Low 4.40-5.90 [facility] Comment on above: Performed By: #### H EMDF, PT, BMP3M, PHOS3, MG3, CK3 #### [address] #### VD25H #### [facility] [address] [place] [address] WBC #/vol (Bld) 13.7 10*3/uL High 3.6-10.7 [facility] Comment on above: Performed By: #### H EMDF, PT, BMP3M, PHOS3, MG3, CK3 #### [address] #### VD25H #### [facility] [address] [place] [address] Arterial Blood Gaseson 07-12 CO2 molar conc 26.4 mmol/L Normal 23.0-27.0 [facility] Comment on above: Performed By: #### H EMDF, PT, BMP3M, PHOS3, MG3, CK3 #### [address] #### VD25H #### [facility] [address] [place] [address] HCO3 molar conc (Bld) 25.2 mmol/L High 21.0-25.0 [facility] Comment on above: Performed By: #### H EMDF, PT, BMP3M, PHOS3, MG3, CK3 #### [address] [place] #### VD25H #### [facility] [address] [place] [address] Hemoglobin mass conc (Bld) 13.9 g/dL Normal ScreenOnly [facility] Comment on above: Performed By: #### H EMDF, PT, BMP3M, PHOS3, MG3, CK3 #### [address] [place], [place] #### VD25H #### [facility] [address] [place] [address] Oxygen ppres (Bld) 83.9 mm[Hg] Normal 80.0-100.0 [facility] Comment on above: Performed By: #### H EMDF, PT, BMP3M, PHOS3, MG3, CK3 #### [address] [place], [place] #### VD25H #### [facility] [address] [place] [address] Oxygen saturation in Blood 96.3 % Normal 95.0-100.0 [facility] Comment on above: Performed By: #### H EMDF, PT, BMP3M, PHOS3, MG3, CK3 #### [address] [place], [place] #### VD25H #### [facility] [address] [place] [address] pCO2 38.2 mm[Hg] Normal 35.0-45.0 [facility] Comment on above: Performed By: #### H EMDF, PT, BMP3M, PHOS3, MG3, CK3 #### [address] [place], [place] #### VD25H #### [facility] [address] [place] [address] pH (Bld) 7.437 Normal 7.350-7.450 [facility] Comment on above: Performed By: #### H EMDF, PT, BMP3M, PHOS3, MG3, CK3 #### [address] [place], [place] #### VD25H #### [facility] [address] [place] [address] Std Base Excess 1.1 mmol/L Normal -3.0-3.0 [facility] Comment on above: Performed By: #### H EMDF, PT, BMP3M, PHOS3, MG3, CK3 #### [address] [place] #### VD25H #### [facility] [address] [place] [address] FIO2 50% Normal [facility] Comment on above: Performed By: #### H EMDF, PT, BMP3M, PHOS3, MG3, CK3 #### [address] #### VD25H #### [facility] [address] [place] [address] CO2 molar conc 27.2 mmol/L High 23.0-27.0 [facility] Comment on above: Performed By: #### H EMDF, PT, BMP3M, PHOS3, MG3, CK3 #### [address] [place] #### VD25H #### [place] [address] [place] [address] HCO3 molar conc (Bld) 26.1 mmol/L High 21.0-25.0 [facility] Comment on above: Performed By: #### H EMDF, PT, BMP3M, PHOS3, MG3, CK3 #### [address] [place] #### VD25H #### [place] [address] [place] [address] Hemoglobin mass conc (Bld) 14.7 g/dL Normal ScreenOnly [facility] Comment on above: Performed By: #### H EMDF, PT, BMP3M, PHOS3, MG3, CK3 #### [facility] [address] [place], [place] #### VD25H #### [facility] [address] [place] [address] Oxygen ppres (Bld) 125.7 mm[Hg] High 80.0-100.0 [facility] Comment on above: Performed By: #### H EMDF, PT, BMP3M, PHOS3, MG3, CK3 #### [address] [facility] #### VD25H #### [facility] [address] [place] [address] Oxygen saturation in Blood 98.6 % Normal 95.0-100.0 [facility] Comment on above: Performed By: #### H EMDF, PT, BMP3M, PHOS3, MG3, CK3 #### [address] #### VD25H #### [place] [address] [place] [address] pCO2 37.5 mm[Hg] Normal 35.0-45.0 [facility] Comment on above: Performed By: #### H EMDF, PT, BMP3M, PHOS3, MG3, CK3 #### [address] [place], [place] #### VD25H #### [facility] [address] [place] [address] pH (Bld) 7.460 High 7.350-7.450 [facility] Comment on above: Performed By: #### H EMDF, PT, BMP3M, PHOS3, MG3, CK3 #### [address] [place], [place] #### VD25H #### [facility] [address] [place] [address] Std Base Excess 2.4 mmol/L Normal -3.0-3.0 [facility] Comment on above: Performed By: #### H EMDF, PT, BMP3M, PHOS3, MG3, CK3 #### [facility] [address] [place] #### VD25H #### [facility] [address] [place] [address] FIO2 62.5 Normal [facility] Comment on above: Performed By: #### H EMDF, PT, BMP3M, PHOS3, MG3, CK3 #### [address] [facility] #### VD25H #### [facility] [address] [place] [address] Basic Metabolic Panelon - Anion gap molar conc 6 Normal [facility] Comment on above: Performed By: #### H EMDF, PT, BMP3M, PHOS3, MG3, CK3 #### [address] [place] #### VD25H #### [facility] [address] [place] [address] Calcium mass conc 8.0 mg/dL Low 8.4-10.4 [facility] Comment on above: Performed By: #### H EMDF, PT, BMP3M, PHOS3, MG3, CK3 #### [address] [facility] #### VD25H #### [facility] [address] [place] [address] CO2 molar conc 28 mmol/L Normal 22-30 [facility] Comment on above: Performed By: #### H EMDF, PT, BMP3M, PHOS3, MG3, CK3 #### [address] [facility] #### VD25H #### [facility] [address] [place] [address] Creatinine mass conc 0.62 mg/dL Normal 0.52-1.25 [facility] Comment on above: Performed By: #### H EMDF, PT, BMP3M, PHOS3, MG3, CK3 #### [address] [facility] #### VD25H #### [facility] [address] [place] [address] GFR/1.73 sq M predicted among blacks MDRD vol rate/area (S/P/Bld) mL/min/{1.73_m2} Normal >60 [facility] Comment on above: Performed By: #### H EMDF, PT, BMP3M, PHOS3, MG3, CK3 #### [address] #### VD25H #### [place] [address] [place] [address] GFR/1.73 sq M predicted among non-blacks MDRD vol rate/area (S/P/Bld) mL/min/{1.73_m2} Normal >60 [facility] Comment on above: Result Comment: Sour ce- MDRD equation with creatinine calibration to IDMS(NKDEP) eGFR not recommended for drug dose adjustment Performed By: #### H EMDF, PT, BMP3M, PHOS3, MG3, CK3 #### [address] #### VD25H #### [place] [address] [place] [address] Glucose mass conc 125 mg/dL High 70-100 [facility] Comment on above: Performed By: #### H EMDF, PT, BMP3M, PHOS3, MG3, CK3 #### [address] #### VD25H #### [facility] [address] [place] [address] Urea nitrogen mass conc 12 mg/dL Normal 7-20 [facility] Comment on above: Performed By: #### H EMDF, PT, BMP3M, PHOS3, MG3, CK3 #### [address] #### VD25H #### [place] [address] [place] [address] Chloride molar conc 104 mmol/L Normal 98-107 [facility] Comment on above: Performed By: #### H EMDF, PT, BMP3M, PHOS3, MG3, CK3 #### [facility] [address] [place] [address] #### VD25H #### [facility] [address] [place] [address] Potassium molar conc 3.6 mmol/L Normal 3.5-5.1 [facility] Comment on above: Performed By: #### H EMDF, PT, BMP3M, PHOS3, MG3, CK3 #### [facility] [address] [place] [address] #### VD25H #### [facility] [address] [place] [address] Sodium molar conc 138 mmol/L Normal 135-145 [facility] Comment on above: Performed By: #### H EMDF, PT, BMP3M, PHOS3, MG3, CK3 #### [facility] [address] [place] #### VD25H #### [facility] [address] [place] [address] CR Chest Portableon 07-13-19 19 CR Chest Portable Patient Name: KATHYA HOOPER Diagnostic Radiology Exam Date/Time 07/12/2018 10:18:11 EDT Exam CR Chest Portable Ordering Physician MARIA EUGENIA PEREZ Accession Number [id number] CPT4 Codes 36579 () Reason For Exam ETT Placement Report [...] R Transcribed Date and Time: 07/12/2018 1:21 [facility] CR Chest Portable Patient Name: KATHYA HOOPER Diagnostic Radiology Exam Date/Time 07/12/2018 06:19:03 EDT Exam CR Chest Portable Ordering Physician MD NATE, [facility] Accession Number [id number] CPT4 Codes 69699 () Reason For Exam dyspnea Report PORTABLE [...] Date and Time: 07/12/2018 8:01 Normal [facility] Hemogram w/ Autodiffon 07-12 Abs Baso Cnt 0.0 10*3/uL Normal 0.0-0.2 [facility] Comment on above: Performed By: #### H EMDF, PT, BMP3M, PHOS3, MG3, CK3 #### [facility] [address] [place], [place] #### VD25H #### [facility] [address] [place] [address] Abs Neutrophile Cnt 10.2 10*3/uL High 1.8-7.0 [facility] Comment on above: Performed By: #### H EMDF, PT, BMP3M, PHOS3, MG3, CK3 #### [address] #### VD25H #### [facility] [address] [place] [address] Basophils/100 WBC (Bld) 0.4 % Normal 0.0-2.0 [facility] Comment on above: Performed By: #### H EMDF, PT, BMP3M, PHOS3, MG3, CK3 #### [address] #### VD25H #### [facility] [address] [place] [address] Eosinophils #/vol (Bld) 0.1 10*3/uL Normal 0.0-0.5 [facility] Comment on above: Performed By: #### H EMDF, PT, BMP3M, PHOS3, MG3, CK3 #### [address] #### VD25H #### [facility] [address] [place] [address] Eosinophils/100 WBC (Bld) 0.6 % Low 1.0-6.0 [facility] Comment on above: Performed By: #### H EMDF, PT, BMP3M, PHOS3, MG3, CK3 #### [address] [place], [place] #### VD25H #### [facility] [address] [place] [address] Erythrocyte distribution width Ratio (RBC) 13.5 % Normal 11.5-14.5 [facility] Comment on above: Performed By: #### H EMDF, PT, BMP3M, PHOS3, MG3, CK3 #### [address] [place] #### VD25H #### [facility] [address] [place] [address] Granulocytes/100 WBC (Bld) 84.7 % High 40.0-80.0 [facility] Comment on above: Performed By: #### H EMDF, PT, BMP3M, PHOS3, MG3, CK3 #### [address] [place] #### VD25H #### [facility] [address] [place] [address] Hematocrit Volume Fraction (Bld) 39.7 % Low 40.0-52.0 [facility] Comment on above: Performed By: #### H EMDF, PT, BMP3M, PHOS3, MG3, CK3 #### [address] [place] #### VD25H #### [facility] [address] [place] [address] Hemoglobin mass conc (Bld) 13.5 g/dL Normal 13.0-18.0 [facility] Comment on above: Performed By: #### H EMDF, PT, BMP3M, PHOS3, MG3, CK3 #### [address] #### VD25H #### [facility] [address] [place] [address] Lymphocytes #/vol (Bld) 0.9 10*3/uL Low 1.0-4.3 [facility] Comment on above: Performed By: #### H EMDF, PT, BMP3M, PHOS3, MG3, CK3 #### [facility] [address] [place], [place] #### VD25H #### [facility] [address] [place] [address] Lymphocytes/100 WBC (Bld) 7.6 % Low 20.0-40.0 [facility] Comment on above: Performed By: #### H EMDF, PT, BMP3M, PHOS3, MG3, CK3 #### [address] #### VD25H #### [facility] [address] [place] [address] MCH Entitic mass (RBC) 29.6 pg Normal 26.0-34.0 [facility] Comment on above: Performed By: #### H EMDF, PT, BMP3M, PHOS3, MG3, CK3 #### [address] #### VD25H #### [facility] [address] [place] [address] MCHC mass conc (RBC) 34.1 % Normal 32.0-36.0 [facility] Comment on above: Performed By: #### H EMDF, PT, BMP3M, PHOS3, MG3, CK3 #### [address] #### VD25H #### [facility] [address] [place] [address] MCV Entitic volume (RBC) 87.0 fL Normal 80.0-98.0 [facility] Comment on above: Performed By: #### H EMDF, PT, BMP3M, PHOS3, MG3, CK3 #### [address] #### VD25H #### [facility] [address] [place] [address] Monocytes #/vol (Bld) 0.8 10*3/uL Normal 0.0-0.8 [facility] Comment on above: Performed By: #### H EMDF, PT, BMP3M, PHOS3, MG3, CK3 #### [facility] [address] [place] #### VD25H #### [facility] [address] [place] [address] Monocytes/100 WBC (Bld) 6.7 % Normal 2.0-10.0 [facility] Comment on above: Performed By: #### H EMDF, PT, BMP3M, PHOS3, MG3, CK3 #### [address] [place] [address] [place] #### VD25H #### [facility] [address] [place] [address] Platelet mean volume Entitic volume (Bld) 8.4 fL Normal 7.4-10.4 [facility] Comment on above: Performed By: #### H EMDF, PT, BMP3M, PHOS3, MG3, CK3 #### [address] #### VD25H #### [facility] [address] [place] [address] Platelets #/vol (Bld) 185 10*3/uL Normal 140-440 [facility] Comment on above: Performed By: #### H EMDF, PT, BMP3M, PHOS3, MG3, CK3 #### [address] [place], [place] #### VD25H #### [facility] [address] [place] [address] RBC #/vol (Bld) 4.57 10*6/uL Normal 4.40-5.90 [facility] Comment on above: Performed By: #### H EMDF, PT, BMP3M, PHOS3, MG3, CK3 #### [address] #### VD25H #### [facility] [address] [place] [address] WBC #/vol (Bld) 12.1 10*3/uL High 3.6-10.7 [facility] [employer] [facility] Comment on above: Performed By: #### H EMDF, PT, BMP3M, PHOS3, MG3, CK3 #### [facility] [address] [place] [address] #### VD25H #### [place] [address] [place] [address] VL Venous Duplex US Lower Ex t Bilateralon 07-12-2018 VL Venous Duplex US Lower Ext Bilateral Patient Name: KATHYA HOOPER Ultrasound Exam Date/Time 07/12/2018 17:20:46 EDT Exam VL Venous Duplex US Lower Ext Bilateral Ordering Physician MD AVELAR ADAM Accession Number [id number] CPT4 Codes 98177 () Reason For Exam leg swelling Report [facility] --- Lower Extremity Venous Duplex Report Patient Name: Kathya Hooper : 1955 Study Date: 07/12/2018 W (63yrs) Age: 63 Account: [id number] Gender: M Loc: T209 BP: Ordering: Joshua Avelar Technologist: Ordering Physician: Joshua Avelar Software Architect: Elizabeth Sanford RVT Interpreting Physician: Krysta Arora [...] performed. The images were obtained using a [employer] E9 vascular ultrasound machine. --- VENOUS FLOW [...] ---------+-------+--- --+ Electronically signed by: Krysta Arora [id number] Final Dictated: 07/13/2018 8:45 am Dictating Physician: KRYSTA ARORA Signed Date and Time: 07/13/2018 8:45 am Signed by: KRYSTA ARORA [facility] Basic Metabolic Panelon 06-29 Calcium mass conc 7.8 mg/dL Low 8.4-10.4 [facility] Comment on above: Performed By: #### H EMDF, PT, BMP3M, PHOS3, MG3, CK3 #### [address] [facility] #### VD25H #### [facility] [address] [place] [address] Anion gap molar conc 4 Normal [facility] Comment on above: Performed By: #### H EMDF, PT, BMP3M, PHOS3, MG3, CK3 #### [place] [facility] #### VD25H #### [facility] [address] [place] [address] CO2 molar conc 26 mmol/L Normal 22-30 [facility] Comment on above: Performed By: #### H EMDF, PT, BMP3M, PHOS3, MG3, CK3 #### [place] [facility] #### VD25H #### [facility] [address] [place] [address] Glucose mass conc 118 mg/dL High 70-100 [facility] Comment on above: Performed By: #### H EMDF, PT, BMP3M, PHOS3, MG3, CK3 #### [place] [facility] #### VD25H #### [facility] [address] [place] [address] Urea nitrogen mass conc 19 mg/dL Normal 7-20 [facility] Comment on above: Performed By: #### H EMDF, PT, BMP3M, PHOS3, MG3, CK3 #### [place] [facility] #### VD25H #### [facility] [address] [place] [address] Creatinine mass conc 0.74 mg/dL Normal 0.52-1.25 [facility] Comment on above: Performed By: #### H EMDF, PT, BMP3M, PHOS3, MG3, CK3 #### [address] #### VD25H #### [facility] [address] [place] [address] GFR/1.73 sq M predicted among blacks MDRD vol rate/area (S/P/Bld) mL/min/{1.73_m2} Normal >60 [facility] Comment on above: Performed By: #### H EMDF, PT, BMP3M, PHOS3, MG3, CK3 #### [address] #### VD25H #### [facility] [address] [place] [address] GFR/1.73 sq M predicted among non-blacks MDRD vol rate/area (S/P/Bld) mL/min/{1.73_m2} Normal >60 [facility] Comment on above: Result Comment: Sour ce- MDRD equation with creatinine calibration to IDMS(NKDEP) eGFR not recommended for drug dose adjustment Performed By: #### H EMDF, PT, BMP3M, PHOS3, MG3, CK3 #### [address] #### VD25H #### [facility] [address] [place] [address] Chloride molar conc 112 mmol/L High 98-107 [facility] Comment on above: Performed By: #### H EMDF, PT, BMP3M, PHOS3, MG3, CK3 #### [address] #### VD25H #### [facility] [address] [place] [address] Potassium molar conc 3.8 mmol/L Normal 3.5-5.1 [facility] Comment on above: Performed By: #### H EMDF, PT, BMP3M, PHOS3, MG3, CK3 #### [address] #### VD25H #### [facility] [address] [place] [address] Sodium molar conc 141 mmol/L Normal 135-145 [facility] Comment on above: Performed By: #### H EMDF, PT, BMP3M, PHOS3, MG3, CK3 #### [facility] [address] [place] [address] #### VD25H #### [facility] [address] [place] [address] CR Chest 1 View Frontalon CR Chest 1 View Frontal Patient Name: KATHYA FELDER Diagnostic Radiology Exam Date/Time 07/11/2018 06:36:48 EDT Exam CR Chest 1 View Frontal Ordering Physician MD AVELAR ADAM Accession Number [id number] CPT4 Codes 73086 () Reason For Exam dyspnea Report EXAM [...] Date and Time: 07/11/2018 7:05 Normal [facility] Hemogram w/ Autodiffon 07-11 Abs Baso Cnt 0.0 10*3/uL Normal 0.0-0.2 [facility] Comment on above: Performed By: #### H EMDF, PT, BMP3M, PHOS3, MG3, CK3 #### [facility] [address] [place], [place] #### VD25H #### [facility] [address] [place] [address] Abs Neutrophile Cnt 8.8 10*3/uL High 1.8-7.0 [facility] Comment on above: Performed By: #### H EMDF, PT, BMP3M, PHOS3, MG3, CK3 #### [address] #### VD25H #### [facility] [address] [place] [address] Basophils/100 WBC (Bld) 0.4 % Normal 0.0-2.0 [facility] Comment on above: Performed By: #### H EMDF, PT, BMP3M, PHOS3, MG3, CK3 #### [address] #### VD25H #### [facility] [address] [place] [address] Eosinophils #/vol (Bld) 0.0 10*3/uL Normal 0.0-0.5 [facility] Comment on above: Performed By: #### H EMDF, PT, BMP3M, PHOS3, MG3, CK3 #### [address] #### VD25H #### [facility] [address] [place] [address] Eosinophils/100 WBC (Bld) 0.4 % Low 1.0-6.0 [facility] Comment on above: Performed By: #### H EMDF, PT, BMP3M, PHOS3, MG3, CK3 #### [address] [address] #### VD25H #### [facility] [address] [place] [address] Erythrocyte distribution width Ratio (RBC) 13.7 % Normal 11.5-14.5 [facility] Comment on above: Performed By: #### H EMDF, PT, BMP3M, PHOS3, MG3, CK3 #### [address] #### VD25H #### [facility] [address] [place] [address] Granulocytes/100 WBC (Bld) 80.6 % High 40.0-80.0 [facility] Comment on above: Performed By: #### H EMDF, PT, BMP3M, PHOS3, MG3, CK3 #### [address] #### VD25H #### [place] [address] [place] [address] Hematocrit Volume Fraction (Bld) 32.8 % Low 40.0-52.0 [facility] Comment on above: Performed By: #### H EMDF, PT, BMP3M, PHOS3, MG3, CK3 #### [address] #### VD25H #### [place] [address] [place] [address] Hemoglobin mass conc (Bld) 11.4 g/dL Low 13.0-18.0 [facility] Comment on above: Performed By: #### H EMDF, PT, BMP3M, PHOS3, MG3, CK3 #### [address] #### VD25H #### [facility] [address] [place] [address] Lymphocytes #/vol (Bld) 1.3 10*3/uL Normal 1.0-4.3 [facility] Comment on above: Performed By: #### H EMDF, PT, BMP3M, PHOS3, MG3, CK3 #### [address] #### VD25H #### [facility] [address] [place] [address] Lymphocytes/100 WBC (Bld) 11.5 % Low 20.0-40.0 [facility] Comment on above: Performed By: #### H EMDF, PT, BMP3M, PHOS3, MG3, CK3 #### [address] [place], [place] #### VD25H #### [facility] [address] [place] [address] MCH Entitic mass (RBC) 30.2 pg Normal 26.0-34.0 [facility] Comment on above: Performed By: #### H EMDF, PT, BMP3M, PHOS3, MG3, CK3 #### [address] #### VD25H #### [place] [address] [place] [address] MCHC mass conc (RBC) 34.7 % Normal 32.0-36.0 [facility] Comment on above: Performed By: #### H EMDF, PT, BMP3M, PHOS3, MG3, CK3 #### [address] [place], [place] #### VD25H #### [facility] [address] [place] [address] MCV Entitic volume (RBC) 86.9 fL Normal 80.0-98.0 [facility] Comment on above: Performed By: #### H EMDF, PT, BMP3M, PHOS3, MG3, CK3 #### [address] #### VD25H #### [facility] [address] [place] [address] Monocytes #/vol (Bld) 0.8 10*3/uL Normal 0.0-0.8 [facility] Comment on above: Performed By: #### H EMDF, PT, BMP3M, PHOS3, MG3, CK3 #### [facility] [address] [place], [place] #### VD25H #### [facility] [address] [place] [address] Monocytes/100 WBC (Bld) 7.1 % Normal 2.0-10.0 [facility] Comment on above: Performed By: #### H EMDF, PT, BMP3M, PHOS3, MG3, CK3 #### [address] [place], [place] #### VD25H #### [facility] [address] [place] [address] Platelet mean volume Entitic volume (Bld) 8.8 fL Normal 7.4-10.4 [facility] Comment on above: Performed By: #### H EMDF, PT, BMP3M, PHOS3, MG3, CK3 #### [address] #### VD25H #### [facility] [address] [place] [address] Platelets #/vol (Bld) 158 10*3/uL Normal 140-440 [facility] Comment on above: Performed By: #### H EMDF, PT, BMP3M, PHOS3, MG3, CK3 #### [address] #### VD25H #### [facility] [address] [place] [address] RBC #/vol (Bld) 3.78 10*6/uL Low 4.40-5.90 [facility] Comment on above: Performed By: #### H EMDF, PT, BMP3M, PHOS3, MG3, CK3 #### [address] #### VD25H #### [facility] [address] [place] [address] WBC #/vol (Bld) 10.9 10*3/uL High 3.6-10.7 [facility] Comment on above: Performed By: #### H EMDF, PT, BMP3M, PHOS3, MG3, CK3 #### [facility] [address] [place], [place] #### VD25H #### [facility] [address] [place] [address] Magnesiumon 07-11-2018 Magnesium mass conc 2.3 mg/dL Normal 1.6-2.3 [facility] Comment on above: Performed By: #### H EMDF, PT, BMP3M, PHOS3, MG3, CK3 #### [place] [address] [place], [place] #### VD25H #### [facility] [address] [place] [address] Phosphoruson 07-11-2018 Phosphate mass conc 2.8 mg/dL Normal 2.5-4.5 [facility] Comment on above: Performed By: #### H EMDF, PT, BMP3M, PHOS3, MG3, CK3 #### [place] [address] [place], [place] #### VD25H #### [facility] [address] [place] [address] Basic Metabolic Panelon 06-29 Calcium mass conc 8.9 mg/dL Normal 8.4-10.4 [facility] Comment on above: Performed By: #### H EMDF, PT, BMP3M, PHOS3, MG3, CK3 #### [place] [address] [place], [place] #### VD25H #### [facility] [address] [place] [address] Glucose mass conc 133 mg/dL High 70-100 [facility] Comment on above: Performed By: #### H EMDF, PT, BMP3M, PHOS3, MG3, CK3 #### [address] #### VD25H #### [facility] [address] [place] [address] Anion gap molar conc 4 Normal [facility] Comment on above: Performed By: #### H EMDF, PT, BMP3M, PHOS3, MG3, CK3 #### [address] #### VD25H #### [facility] [address] [place] [address] CO2 molar conc 27 mmol/L Normal 22-30 [facility] Comment on above: Performed By: #### H EMDF, PT, BMP3M, PHOS3, MG3, CK3 #### [address] #### VD25H #### [facility] [address] [place] [address] Creatinine mass conc 0.69 mg/dL Normal 0.52-1.25 [facility] Comment on above: Performed By: #### H EMDF, PT, BMP3M, PHOS3, MG3, CK3 #### [address] #### VD25H #### [facility] [address] [place] [address] GFR/1.73 sq M predicted among blacks MDRD vol rate/area (S/P/Bld) mL/min/{1.73_m2} Normal >60 [facility] Comment on above: Performed By: #### H EMDF, PT, BMP3M, PHOS3, MG3, CK3 #### [address] #### VD25H #### [facility] [address] [place] [address] GFR/1.73 sq M predicted among non-blacks MDRD vol rate/area (S/P/Bld) mL/min/{1.73_m2} Normal >60 [facility] Comment on above: Result Comment: Sour ce- MDRD equation with creatinine calibration to IDMS(NKDEP) eGFR not recommended for drug dose adjustment Performed By: #### H EMDF, PT, BMP3M, PHOS3, MG3, CK3 #### [place] [address] [place] [facility] [place] [place] [address] #### VD25H #### [facility] [address] [place] [address] Urea nitrogen mass conc 16 mg/dL Normal 7-20 [facility] Comment on above: Performed By: #### H EMDF, PT, BMP3M, PHOS3, MG3, CK3 #### [place] [address] [facility] #### VD25H #### [facility] [address] [place] [address] Potassium molar conc 4.1 mmol/L Normal 3.5-5.1 [facility] Comment on above: Performed By: #### H EMDF, PT, BMP3M, PHOS3, MG3, CK3 #### [address] #### VD25H #### [facility] [address] [place] [address] Sodium molar conc 142 mmol/L Normal 135-145 [facility] Comment on above: Performed By: #### H EMDF, PT, BMP3M, PHOS3, MG3, CK3 #### [place] [address] [facility] #### VD25H #### [facility] [address] [place] [address] Chloride molar conc 110 mmol/L High 98-107 [facility] Comment on above: Performed By: #### H EMDF, PT, BMP3M, PHOS3, MG3, CK3 #### [place] [address] [facility] #### VD25H #### [facility] [address] [place] [address] CKon 07-10-2018 CK enzyme act/vol 1291 U/L High 30-170 [facility] Comment on above: Performed By: #### H EMDF, PT, BMP3M, PHOS3, MG3, CK3 #### [place] [address] [place] [address] #### VD25H #### [facility] [address] [place] [address] CK enzyme act/vol 1382 U/L High 30-170 [facility] Comment on above: Performed By: #### H EMDF, PT, BMP3M, PHOS3, MG3, CK3 #### [facility] [address] [place] [address] #### VD25H #### [facility] [address] [place] [address] CR Chest 1 View Frontalon CR Chest 1 View Frontal Patient Name: KATHYA FELDER Diagnostic Radiology Exam Date/Time 07/10/2018 06:38:06 EDT Exam CR Chest 1 View Frontal Ordering Physician MD NATE, [facility] Accession Number [id number] CPT4 Codes 76061 () Reason For Exam dyspnea Report EXAMINATION: [...] Date and Time: 07/10/2018 8:57 Normal [facility] Hemogram w/ Autodiffon 07-10 Abs Baso Cnt 0.0 10*3/uL Normal 0.0-0.2 [facility] Comment on above: Performed By: #### H EMDF, PT, BMP3M, PHOS3, MG3, CK3 #### [facility] [address] [place], [place] #### VD25H #### [facility] [address] [place] [address] Abs Neutrophile Cnt 12.2 10*3/uL High 1.8-7.0 [facility] Comment on above: Performed By: #### H EMDF, PT, BMP3M, PHOS3, MG3, CK3 #### [address] #### VD25H #### [facility] [address] [place] [address] Basophils/100 WBC (Bld) 0.3 % Normal 0.0-2.0 [facility] Comment on above: Performed By: #### H EMDF, PT, BMP3M, PHOS3, MG3, CK3 #### [address] #### VD25H #### [facility] [address] [place] [address] Eosinophils #/vol (Bld) 0.0 10*3/uL Normal 0.0-0.5 [facility] Comment on above: Performed By: #### H EMDF, PT, BMP3M, PHOS3, MG3, CK3 #### [address] #### VD25H #### [facility] [address] [place] [address] Eosinophils/100 WBC (Bld) 0.0 % Low 1.0-6.0 [facility] Comment on above: Performed By: #### H EMDF, PT, BMP3M, PHOS3, MG3, CK3 #### [address] #### VD25H #### [facility] [address] [place] [address] Erythrocyte distribution width Ratio (RBC) 13.9 % Normal 11.5-14.5 [facility] Comment on above: Performed By: #### H EMDF, PT, BMP3M, PHOS3, MG3, CK3 #### [place] [address] [place], [place] #### VD25H #### [facility] [address] [place] [address] Granulocytes/100 WBC (Bld) 89.5 % High 40.0-80.0 [facility] Comment on above: Performed By: #### H EMDF, PT, BMP3M, PHOS3, MG3, CK3 #### [place] [address] [place], [place] #### VD25H #### [facility] [address] [place] [address] Hematocrit Volume Fraction (Bld) 36.0 % Low 40.0-52.0 [facility] Comment on above: Performed By: #### H EMDF, PT, BMP3M, PHOS3, MG3, CK3 #### [place] [address] [place] #### VD25H #### [facility] [address] [place] [address] Hemoglobin mass conc (Bld) 12.3 g/dL Low 13.0-18.0 [facility] Comment on above: Performed By: #### H EMDF, PT, BMP3M, PHOS3, MG3, CK3 #### [place] [address] [place], [place] #### VD25H #### [facility] [address] [place] [address] Lymphocytes #/vol (Bld) 0.6 10*3/uL Low 1.0-4.3 [facility] Comment on above: Performed By: #### H EMDF, PT, BMP3M, PHOS3, MG3, CK3 #### [facility] [address] [place], [place] #### VD25H #### [facility] [address] [place] [address] Lymphocytes/100 WBC (Bld) 4.3 % Low 20.0-40.0 [facility] Comment on above: Performed By: #### H EMDF, PT, BMP3M, PHOS3, MG3, CK3 #### [address] #### VD25H #### [facility] [address] [place] [address] MCH Entitic mass (RBC) 29.8 pg Normal 26.0-34.0 [facility] Comment on above: Performed By: #### H EMDF, PT, BMP3M, PHOS3, MG3, CK3 #### [address] #### VD25H #### [facility] [address] [place] [address] MCHC mass conc (RBC) 34.2 % Normal 32.0-36.0 [facility] Comment on above: Performed By: #### H EMDF, PT, BMP3M, PHOS3, MG3, CK3 #### [address] #### VD25H #### [facility] [address] [place] [address] MCV Entitic volume (RBC) 87.1 fL Normal 80.0-98.0 [facility] Comment on above: Performed By: #### H EMDF, PT, BMP3M, PHOS3, MG3, CK3 #### [address] #### VD25H #### [facility] [address] [place] [address] Monocytes #/vol (Bld) 0.8 10*3/uL Normal 0.0-0.8 [facility] Comment on above: Performed By: #### H EMDF, PT, BMP3M, PHOS3, MG3, CK3 #### [facility] [address] [place], [place] #### VD25H #### [facility] [address] [place] [address] Monocytes/100 WBC (Bld) 5.9 % Normal 2.0-10.0 [facility] Comment on above: Performed By: #### H EMDF, PT, BMP3M, PHOS3, MG3, CK3 #### [place] [address] [place], [place] #### VD25H #### [facility] [address] [place] [address] Platelet mean volume Entitic volume (Bld) 8.4 fL Normal 7.4-10.4 [facility] Comment on above: Performed By: #### H EMDF, PT, BMP3M, PHOS3, MG3, CK3 #### [address] #### VD25H #### [facility] [address] [place] [address] Platelets #/vol (Bld) 155 10*3/uL Normal 140-440 [facility] Comment on above: Performed By: #### H EMDF, PT, BMP3M, PHOS3, MG3, CK3 #### [address] #### VD25H #### [facility] [address] [place] [address] RBC #/vol (Bld) 4.13 10*6/uL Low 4.40-5.90 [facility] Comment on above: Performed By: #### H EMDF, PT, BMP3M, PHOS3, MG3, CK3 #### [address] [place], [place] #### VD25H #### [facility] [address] [place] [address] WBC #/vol (Bld) 13.6 10*3/uL High 3.6-10.7 [facility] Comment on above: Performed By: #### H EMDF, PT, BMP3M, PHOS3, MG3, CK3 #### [place] [address] [place], [place] #### VD25H #### [facility] [address] [place] [address] Magnesiumon 07-10-2018 Magnesium mass conc 2.3 mg/dL Normal 1.6-2.3 [facility] Comment on above: Performed By: #### H EMDF, PT, BMP3M, PHOS3, MG3, CK3 #### [address] #### VD25H #### [facility] [address] [place] [address] Phosphoruson 07-10-2018 Phosphate mass conc 2.7 mg/dL Normal 2.5-4.5 [facility] Comment on above: Performed By: #### H EMDF, PT, BMP3M, PHOS3, MG3, CK3 #### [place] [address] [place] #### VD25H #### [facility] [address] [place] [address] Add on test from HISon 07-09 Add on test from HIS Accepted Normal [facility] Comment on above: Result Comment: Spec imen available & acceptable for analysis. Performed By: #### A DDON #### [address] Arterial Blood Gaseson 07-09 CO2 molar conc 24.5 mmol/L Normal 23.0-27.0 [facility] Comment on above: Performed By: #### H EMDF, PT, BMP3M, PHOS3, MG3, CK3 #### [address] #### VD25H #### [facility] [address] [place] [address] HCO3 molar conc (Bld) 23.2 mmol/L Normal 21.0-25.0 [facility] Comment on above: Performed By: #### H EMDF, PT, BMP3M, PHOS3, MG3, CK3 #### [facility] [address] [place], [place] #### VD25H #### [facility] [address] [place] [address] Hemoglobin mass conc (Bld) 15.7 g/dL Normal [facility]Only [facility] Comment on above: Performed By: #### H EMDF, PT, BMP3M, PHOS3, MG3, CK3 #### [place] [address] [place], [place] #### VD25H #### [facility] [address] [place] [address] Oxygen ppres (Bld) 397.4 mm[Hg] High 80.0-100.0 [facility] Comment on above: Performed By: #### H EMDF, PT, BMP3M, PHOS3, MG3, CK3 #### [place] [address] [place] #### VD25H #### [facility] [address] [place] [address] Oxygen saturation in Blood 99.2 % Normal 95.0-100.0 [facility] Comment on above: Performed By: #### H EMDF, PT, BMP3M, PHOS3, MG3, CK3 #### [place] [address] [place] #### VD25H #### [facility] [address] [place] [address] pCO2 42.3 mm[Hg] Normal 35.0-45.0 [facility] Comment on above: Performed By: #### H EMDF, PT, BMP3M, PHOS3, MG3, CK3 #### [place] [address] [place] #### VD25H #### [facility] [address] [place] [address] pH (Bld) 7.357 Normal 7.350-7.450 [facility] Comment on above: Performed By: #### H EMDF, PT, BMP3M, PHOS3, MG3, CK3 #### [place] [address] [place] #### VD25H #### [facility] [address] [place] [address] Std Base Excess -2.3 mmol/L Normal -3.0-3.0 [facility] Comment on above: Performed By: #### H EMDF, PT, BMP3M, PHOS3, MG3, CK3 #### [place] [address] [place] #### VD25H #### [facility] [address] [place] [address] FIO2 100% Normal [facility] Comment on above: Performed By: #### H EMDF, PT, BMP3M, PHOS3, MG3, CK3 #### [address] #### VD25H #### [facility] [address] [place] [address] Basic Metabolic Panelon 06-29 Calcium mass conc 8.6 mg/dL Normal 8.4-10.4 [facility] Comment on above: Performed By: #### H EMDF, PT, BMP3M, PHOS3, MG3, CK3 #### [place] [address] [place] #### VD25H #### [facility] [address] [place] [address] Glucose mass conc 150 mg/dL High 70-100 [facility] Comment on above: Performed By: #### H EMDF, PT, BMP3M, PHOS3, MG3, CK3 #### [place] [address] [facility] #### VD25H #### [facility] [address] [place] [address] Anion gap molar conc 7 Normal [facility] Comment on above: Performed By: #### H EMDF, PT, BMP3M, PHOS3, MG3, CK3 #### [address] #### VD25H #### [facility] [address] [place] [address] CO2 molar conc 26 mmol/L Normal 22-30 [facility] Comment on above: Performed By: #### H EMDF, PT, BMP3M, PHOS3, MG3, CK3 #### [address] #### VD25H #### [place] [address] [place] [address] Creatinine mass conc 0.80 mg/dL Normal 0.52-1.25 [facility] Comment on above: Performed By: #### H EMDF, PT, BMP3M, PHOS3, MG3, CK3 #### [address] #### VD25H #### [place] [address] [place] [address] GFR/1.73 sq M predicted among blacks MDRD vol rate/area (S/P/Bld) mL/min/{1.73_m2} Normal >60 [facility] Comment on above: Performed By: #### H EMDF, PT, BMP3M, PHOS3, MG3, CK3 #### [address] #### VD25H #### [place] [address] [place] [address] GFR/1.73 sq M predicted among non-blacks MDRD vol rate/area (S/P/Bld) mL/min/{1.73_m2} Normal >60 [facility] Comment on above: Result Comment: Sour ce- MDRD equation with creatinine calibration to IDMS(NKDEP) eGFR not recommended for drug dose adjustment Performed By: #### H EMDF, PT, BMP3M, PHOS3, MG3, CK3 #### [address] #### VD25H #### [facility] [address] [place] [address] Urea nitrogen mass conc 16 mg/dL Normal 7-20 [facility] Comment on above: Performed By: #### H EMDF, PT, BMP3M, PHOS3, MG3, CK3 #### [place] [address] [facility] #### VD25H #### [facility] [address] [place] [address] Chloride molar conc 110 mmol/L High 98-107 [facility] Comment on above: Performed By: #### H EMDF, PT, BMP3M, PHOS3, MG3, CK3 #### [place] [address] [place] #### VD25H #### [facility] [address] [place] [address] Potassium molar conc 4.7 mmol/L Normal 3.5-5.1 [facility] Comment on above: Performed By: #### H EMDF, PT, BMP3M, PHOS3, MG3, CK3 #### [place] [address] [facility] #### VD25H #### [facility] [address] [place] [address] Sodium molar conc 143 mmol/L Normal 135-145 [facility] Comment on above: Performed By: #### H EMDF, PT, BMP3M, PHOS3, MG3, CK3 #### [place] [address] [facility] #### VD25H #### [facility] [address] [place] [address] CKon 07-09-2018 CK enzyme act/vol 1451 U/L High 30-170 [facility] Comment on above: Performed By: #### H EMDF, PT, BMP3M, PHOS3, MG3, CK3 #### [place] [address] [facility] #### VD25H #### [facility] [address] [place] [address] CK enzyme act/vol 3832 U/L High 30-170 [facility] Comment on above: Performed By: #### H EMDF, PT, BMP3M, PHOS3, MG3, CK3 #### [facility] [address] [place] [address] #### VD25H #### [facility] [address] [place] [address] CR Chest 1 View Frontalon CR Chest 1 View Frontal Patient Name: KATHYA EFLDER Diagnostic Radiology Exam Date/Time 07/09/2018 06:21:56 EDT Exam CR Chest 1 View Frontal Ordering Physician MD NATE, NICOLE HOLLEY Accession Number [id number] CPT4 Codes 70768 () Reason For Exam dyspnea Report CHEST [...] Date and Time: 07/09/2018 6:39 Normal [facility] CR Chest Portableon 07-10-19 19 CR Chest Portable Patient Name: KATHYA HOOPER Diagnostic Radiology Exam Date/Time 07/09/2018 11:34:09 EDT Exam CR Chest Portable Ordering Physician [id number] JOHNSON Accession Number [id number] CPT4 Codes 22732 () Reason For Exam Central line placement [...] JOHN Transcribed Date and Time: 07/09/2018 1:01 [facility] CR Chest Portable Patient Name: KATHYA HOOPER Diagnostic Radiology Exam Date/Time 07/09/2018 03:05:20 EDT Exam CR Chest Portable Ordering Physician MD NATE, [facility] Accession Number [id number] CPT4 Codes 78778 () Reason For Exam intubation Report CHEST PORTABLE: Indication: Inpatient; intubation Views: Portable frontal Comparison: 07/08/2018 at 22:16 Time: 07/09/2018 at 2:46 FINDINGS: Interval intubation with endotracheal tube approximately 4.2 cm above the level of the alma. An enteric tube has been placed with distal tip below the hemidiaphragm but excluded from [id number]. Cardiac monitoring wires and leads are present. [...] Transcribed Date and Time: 07/09/2018 3:10 Normal [facility] CR Chest Portable Patient Name: KATHYA HOOPER Diagnostic Radiology Exam Date/Time 07/08/2018 22:31:57 EDT Exam CR Chest Portable Ordering Physician MD NATE, [facility] Accession Number [id number] CPT4 Codes 25198 () Reason For Exam cough Report CHEST [...] Date and Time: 07/08/2018 11:23 Normal [facility] CTA Head/Neck w/ + w/o contr birgit 07-09-2018 CTA Head/Neck w/ + w/o contrast Patient Name: KATHYA HOOPER CT Exam Date/Time 07/09/2018 04:42:10 EDT Exam CTA Head/Neck w/ + w/o contrast Ordering Physician MD RICKI, JORDAN Accession Number [id number] CPT4 Codes Q9967 (CT ISOVUE [id number]), 44128 (), 21323 () Reason For Exam CERVICAL SPINE FRACTURE Report CLINICAL INFORMATION: C-spine fracture after trauma. Vascular injury suspected. CTA HEAD: After 75 ml Isovue IV contrast, 0.3 mm axial cuts were obtained through the brain. Coronal and sagittal reconstructions are reviewed. In addition, 3D images of the hopi of [place] were constructed by me and reviewed simultaneously on the separate [employer] Workstation. The examination is compared to a [...] by and reviewed simultaneously on the separate [employer] Workstation. The examination is compared to a [...] at 0735 hrs. Report Dictated on Workstation: [employer] Final Dictated: 07/09/2018 9:50 am Dictating Physician: MD JERNIGAN JEFFREY Signed Date and Time: 07/09/2018 10:26 am Signed by: MD JERNIGAN JEFFREY Transcribed Date and Time: 07/09/2018 9:50 Normal [facility] Hemogram w/ Autodiffon 07-09 Abs Baso Cnt 0.1 10*3/uL Normal 0.0-0.2 [facility] Comment on above: Performed By: #### H EMDF, PT, BMP3M, PHOS3, MG3, CK3 #### [facility] [address] [place], [place] #### VD25H #### [facility] [address] [place] [address] Abs Neutrophile Cnt 13.3 10*3/uL High 1.8-7.0 [facility] Comment on above: Performed By: #### H EMDF, PT, BMP3M, PHOS3, MG3, CK3 #### [address] #### VD25H #### [facility] [address] [place] [address] Basophils/100 WBC (Bld) 0.3 % Normal 0.0-2.0 [facility] Comment on above: Performed By: #### H EMDF, PT, BMP3M, PHOS3, MG3, CK3 #### [address] #### VD25H #### [facility] [address] [place] [address] Eosinophils #/vol (Bld) 0.0 10*3/uL Normal 0.0-0.5 [facility] Comment on above: Performed By: #### H EMDF, PT, BMP3M, PHOS3, MG3, CK3 #### [address] #### VD25H #### [facility] [address] [place] [address] Eosinophils/100 WBC (Bld) 0.0 % Low 1.0-6.0 [facility] Comment on above: Performed By: #### H EMDF, PT, BMP3M, PHOS3, MG3, CK3 #### [address] #### VD25H #### [facility] [address] [place] [address] Erythrocyte distribution width Ratio (RBC) 13.7 % Normal 11.5-14.5 [facility] Comment on above: Performed By: #### H EMDF, PT, BMP3M, PHOS3, MG3, CK3 #### [address] #### VD25H #### [facility] [address] [place] [address] Granulocytes/100 WBC (Bld) 86.5 % High 40.0-80.0 [facility] Comment on above: Performed By: #### H EMDF, PT, BMP3M, PHOS3, MG3, CK3 #### [address] #### VD25H #### [place] [address] [place] [address] Hematocrit Volume Fraction (Bld) 45.1 % Normal 40.0-52.0 [facility] Comment on above: Performed By: #### H EMDF, PT, BMP3M, PHOS3, MG3, CK3 #### [address] #### VD25H #### [facility] [address] [place] [address] Hemoglobin mass conc (Bld) 15.6 g/dL Normal 13.0-18.0 [facility] Comment on above: Performed By: #### H EMDF, PT, BMP3M, PHOS3, MG3, CK3 #### [address] #### VD25H #### [facility] [address] [place] [address] Lymphocytes #/vol (Bld) 0.8 10*3/uL Low 1.0-4.3 [facility] Comment on above: Performed By: #### H EMDF, PT, BMP3M, PHOS3, MG3, CK3 #### [address] #### VD25H #### [facility] [address] [place] [address] Lymphocytes/100 WBC (Bld) 5.5 % Low 20.0-40.0 [facility] Comment on above: Performed By: #### H EMDF, PT, BMP3M, PHOS3, MG3, CK3 #### [address] #### VD25H #### [facility] [address] [place] [address] MCH Entitic mass (RBC) 29.9 pg Normal 26.0-34.0 [facility] [facility] Comment on above: Performed By: #### H EMDF, PT, BMP3M, PHOS3, MG3, CK3 #### [address] #### VD25H #### [place] [address] [place] [address] MCHC mass conc (RBC) 34.5 % Normal 32.0-36.0 [facility] Comment on above: Performed By: #### H EMDF, PT, BMP3M, PHOS3, MG3, CK3 #### [address] #### VD25H #### [address] [place] [address] MCV Entitic volume (RBC) 86.7 fL Normal 80.0-98.0 [facility] Comment on above: Performed By: #### H EMDF, PT, BMP3M, PHOS3, MG3, CK3 #### [address] #### VD25H #### [place] [address] [place] [address] Monocytes #/vol (Bld) 1.2 10*3/uL High 0.0-0.8 [facility] Comment on above: Performed By: #### H EMDF, PT, BMP3M, PHOS3, MG3, CK3 #### [address] #### VD25H #### [facility] [address] [place] [address] Monocytes/100 WBC (Bld) 7.7 % Normal 2.0-10.0 [facility] Comment on above: Performed By: #### H EMDF, PT, BMP3M, PHOS3, MG3, CK3 #### [place] [address] [place], [place] #### VD25H #### [facility] [address] [place] [address] Platelet mean volume Entitic volume (Bld) 8.1 fL Normal 7.4-10.4 [facility] Comment on above: Performed By: #### H EMDF, PT, BMP3M, PHOS3, MG3, CK3 #### [address] #### VD25H #### [facility] [address] [place] [address] Platelets #/vol (Bld) 197 10*3/uL Normal 140-440 [facility] Comment on above: Performed By: #### H EMDF, PT, BMP3M, PHOS3, MG3, CK3 #### [address] [place], [place] #### VD25H #### [facility] [address] [place] [address] RBC #/vol (Bld) 5.20 10*6/uL Normal 4.40-5.90 [facility] Comment on above: Performed By: #### H EMDF, PT, BMP3M, PHOS3, MG3, CK3 #### [address] #### VD25H #### [facility] [address] [place] [address] WBC #/vol (Bld) 15.4 10*3/uL High 3.6-10.7 [facility] Comment on above: Performed By: #### H EMDF, PT, BMP3M, PHOS3, MG3, CK3 #### [place] [address] [place] [address] #### VD25H #### [place] [address] [place] [address] MRI Spine Cervical w/o Contr birgit 07-09-2018 MRI Spine Cervical w/o Contrast Patient Name: KATHYA HOOPER MRI Exam Date/Time 07/09/2018 00:44:49 EDT Exam MRI Spine Cervical w/o Contrast Ordering Physician MD CHEYENNE, BRITTANY BERRY Accession Number [id number] CPT4 Codes 14426 () Reason For Exam CERVICAL SPINE FRACTURE [...] Date and Time: 07/09/2018 7:45 Normal [facility] Magnesiumon 07-09-2018 Magnesium mass conc 2.2 mg/dL Normal 1.6-2.3 [facility] Comment on above: Performed By: #### H EMDF, PT, BMP3M, PHOS3, MG3, CK3 #### [facility] [address] [place] [address] #### VD25H #### [facility] [address] [place] [address] Phosphoruson 07-09-2018 Phosphate mass conc 4.0 mg/dL Normal 2.5-4.5 [facility] Comment on above: Performed By: #### H EMDF, PT, BMP3M, PHOS3, MG3, CK3 #### [facility] [address] [place] [address] #### VD25H #### [facility] [address] [place] [address] Prothrombin Timeon 9 INR Coag RelTime (PPP) 1.0 Normal 0.9-1.1 [facility] Comment on above: Result Comment: Yefri [...] PT, BMP3M, PHOS3, MG3, CK3 #### [facility] [address] [place] [address] #### VD25H #### [facility] [address] [place] [address] Prothrombin time (PT) Coag time (PPP) 10.3 s Normal 9.0-12.0 [facility] Comment on above: Result Comment: . Performed By: #### H EMDF, PT, BMP3M, PHOS3, MG3, CK3 #### [facility] [address] [place] [address] #### VD25H #### [facility] [address] [place] [address] TS GELon 07-09-2018 TS GEL ABO Group: O Rh, Gel: POS Antibody Screen Gel: NEG Normal [facility] Comment on above: Performed By: #### T SGL #### [facility] [address] [place] [address] Vit D 25-OH, Totalon 019 Vit D 25-OH, Total 23 ng/mL Low 30-100 [facility] Comment on above: Result Comment: Ther apy is based on measurement of Total 25-OHD with the following classification levels: Less than 20 ng/mL: Indicative of Vit D deficiency 20-30 ng/mL: Suggests Vit D insufficiency Optimal: Greater than or equal to 30 ng/mL Test performed by [employer] Competitive Immunoassay, measuring Total Vitamin D, not individual fractions. Performed By: #### H EMDF, PT, BMP3M, PHOS3, MG3, CK3 #### [facility] [address] [place] [address] #### VD25H #### [facility] [address] [place] [address] Hematologyon 01-03-2003 Lymphocytes (Bld) [#/Vol] RECTUM, BIOPSY - BENIGN COLONIC MUCOSA WITH INTRAMUCOSAL LYMPHOID AGGREGATES. [facility] Otheron 01-03-2003 CONVERTED ELECTRONIC SIGNATURE BARBARA CASTILLO M.D., PATHOLOGIST (Electronic signature on file) Final Signed Out: 01/03/2003 15:09 [facility] CONVERTED ORDERING PROVIDER Ordering Provider: BENI VERA [facility] Culture, urine Bacteria identified Cx Nom (U) Culture exhibits no growth. [facility] Work Phone: Vital Signs Date Time Vital Sign Value Performing Clinician Facility 10-02-2023 13:56-0400 Diastolic blood pressure 62 mm[Hg] Fei Farooq MD Work Phone: [facility] [place] 10-02-2023 13:56-0400 Heart rate 104 /min Fei Farooq MD Work Phone: [facility] 10-02-2023 13:56-0400 SaO2% (BldA) [Mass fraction] 94 % Fei Farooq MD Work Phone: [facility] 10-02-2023 13:56-0400 Systolic blood pressure 124 mm[Hg] Fei Farooq MD Work Phone: [facility] 10-02-2023 11:13-0400 Respiratory rate 16 /min Fei Farooq MD Work Phone: [facility] [place] 10-02-2023 09:47-0400 Body mass index (BMI) [Ratio] 26.19 kg/m2 Fie Farooq MD Work Phone: [facility] [place] 10-02-2023 09:47-0400 Body temperature 98.01 [degF] Fei Farooq MD Work Phone: [facility] 10-02-2023 09:47-0400 Body weight 92.53 kg Fei Farooq MD Work Phone: [facility] [place] 05-20-2022 18:30-0500 Body mass index (BMI) [Ratio] 26.32 kg/m2 Abelardo Gombash DO Work Phone: [facility] 05-20-2022 18:30-0500 Body temperature 97.3 [degF] Abelardo Gombash DO Work Phone: [facility] [place] 05-20-2022 18:30-0500 Body weight 92.99 kg Abelardo Gombash DO Work Phone: [facility] 05-20-2022 18:30-0500 Diastolic blood pressure 108 mm[Hg] Abelardo Gombash DO Work Phone: [facility] 05-20-2022 18:30-0500 Heart rate 100 /min Abelardo Gombash DO Work Phone: [facility] 05-20-2022 18:30-0500 Respiratory rate 14 /min Abelardo Gombash DO Work Phone: [facility] 05-20-2022 18:30-0500 SaO2% (BldA) [Mass fraction] 98 % Abelardo Gombash DO Work Phone: [facility] 05-20-2022 18:30-0500 Systolic blood pressure 125 mm[Hg] Aeblardo Gombash DO Work Phone: [facility] 05-15-2021 09:40-0500 Body height 188 cm Timothy Micheal DO Work Phone: [facility] 05-15-2021 09:40-0500 Body mass index (BMI) [Ratio] 23.75 kg/m2 Timothy Micheal DO Work Phone: [facility] 05-15-2021 09:40-0500 Body weight 83.92 kg Timothy Micheal DO Work Phone: [facility] 05-15-2021 09:38-0500 Body temperature 97.59 [degF] Timothy Micheal DO Work Phone: [facility] 05-15-2021 09:38-0500 Diastolic blood pressure 76 mm[Hg] Timothy Micheal DO Work Phone: [facility] 05-15-2021 09:38-0500 Heart rate 102 /min Timothy Micheal DO Work Phone: [facility] 05-15-2021 09:38-0500 Respiratory rate 16 /min Timothy Micheal DO Work Phone: [facility] 05-15-2021 09:38-0500 SaO2% (BldA) [Mass fraction] 99 % Timothy Micheal DO Work Phone: [facility] 05-15-2021 09:38-0500 Systolic blood pressure 115 mm[Hg] Timothy Evanss DO Work Phone: [facility] 03-24-2021 10:20-0500 Respiratory rate 18 /min Brady Nesheim DO Work Phone: [facility] 03-24-2021 10:20-0500 SaO2% (BldA) [Mass fraction] 94 % Brady Nesheim DO Work Phone: [facility] 03-24-2021 08:44-0500 Body temperature 97.7 [degF] Brady Nesheim DO Work Phone: [facility] 03-24-2021 08:44-0500 Diastolic blood pressure 55 mm[Hg] Brady Nesheim DO Work Phone: [facility] 03-24-2021 08:44-0500 Heart rate 85 /min Brady Nesheim DO Work Phone: [facility] 03-24-2021 08:44-0500 Systolic blood pressure 85 mm[Hg] Brady Nesheim DO Work Phone: [facility] 03-20-2021 13:41-0500 Body height 188 cm Brady Nesheim DO Work Phone: [facility] 03-20-2021 11:16-0500 Body mass index (BMI) [Ratio] 23.86 kg/m2 Brady Nesheim DO Work Phone: [facility] 03-20-2021 11:16-0500 Body weight 84.32 kg Brady Nesheim DO Work Phone: [facility] Comment on above: earlene Ingram RN (bed scal e measurement) on 03/20/2021 03-18-2021 15:02-0500 Body temperature 99.5 [degF] Boo Castro MD Work Phone: [facility] 03-18-2021 15:02-0500 Diastolic blood pressure 82 mm[Hg] Boo Castro MD Work Phone: [facility] 03-18-2021 15:02-0500 Heart rate 111 /min Boo Castro MD Work Phone: [facility] 03-18-2021 15:02-0500 Respiratory rate 18 /min Boo Castro MD Work Phone: [facility] 03-18-2021 15:02-0500 SaO2% (BldA) [Mass fraction] 93 % Boo Castro MD Work Phone: [facility] 03-18-2021 15:02-0500 Systolic blood pressure 111 mm[Hg] Boo Castro MD Work Phone: [facility] 10-30-2020 17:10-0400 Diastolic blood pressure 82 mm[Hg] Bethany Clemons MD Work Phone: [facility] Work Phone: 10-30-2020 17:10-0400 Heart rate 110 /min Bethany Clemons MD Work Phone: [facility] Work Phone: 10-30-2020 17:10-0400 Respiratory rate 16 /min Bethany Clemons MD Work Phone: [facility] Work Phone: 10-30-2020 17:10-0400 SaO2% (BldA) [Mass fraction] 99 % Bethany Clemons MD Work Phone: [facility] Work Phone: 10-30-2020 17:10-0400 Systolic blood pressure 125 mm[Hg] Bethany Clemons MD Work Phone: [facility] Work Phone: 10-30-2020 13:02-0400 Body mass index (BMI) [Ratio] 24.65 kg/m2 Bethany Clemons MD Work Phone: [facility] Work Phone: 10-30-2020 13:02-0400 Body temperature 96.91 [degF] Bethany Clemons MD Work Phone: [facility] Work Phone: 10-30-2020 13:02-0400 Body weight [...] 21:50-0500 BP Diastolic 71 mm[Hg] Abelardo Gabriel [facility] Work Phone: 06-26-2020 21:50-0500 BP Systolic 118 [...] Work Phone: [facility] Work Phone: NEGATED: Highlighted [id number] 14:34-0500 BMI (Body Mass Index) 22.16 kg/m2 Ana Stevenson [facility] Work Phone: NEGATED: Highlighted [id number] 14:34-0500 Body weight 78.02 kg Ana Peoplesch COMMUNITY EDUCATION SPECIALIST [facility] Work Phone: NEGATED: Highlighted [id number] 14:34-0500 Body weight 78 kg Ana Diesch COMMUNITY EDUCATION SPECIALIST [facility] Work Phone: NEGATED: Highlighted [id number] 14:34-0500 BP Diastolic 66 mm[Hg] Ana Diesch COMMUNITY EDUCATION SPECIALIST [facility] Work Phone: NEGATED: Highlighted [id number] 14:34-0500 BP Systolic 102 mm[Hg] Ana Diesch COMMUNITY EDUCATION SPECIALIST [facility] Work Phone: NEGATED: Highlighted [id number] 14:34-0500 Height 187.96 cm Aan Diesch COMMUNITY EDUCATION SPECIALIST [facility] Work Phone: NEGATED: Highlighted [id number] 14:34-0500 Height 188 cm Ana Diesch COMMUNITY EDUCATION SPECIALIST [facility] Work Phone: NEGATED: Highlighted [id number] 14:34-0500 Pulse (Heart Rate) 104 /min Ana Diesch COMMUNITY EDUCATION SPECIALIST [facility] Work Phone: Encounters Encounter Date Encounter Type Care Provider Facility Start: 03-10-2025 ambulatory Renard Burgos OLS Faci lity:[facility] Start: 03-03-2025 ambulatory Renard Burgos OLS Faci lity:[facility] Start: 02-24-2025 ambulatory Renard Burgos OLS Faci lity:[facility] Start: 02-21-2025 ambulatory Renard Burgos OLS Faci lity:[facility] Start: 02-17-2025 ambulatory Renard Burgos OLS Faci lity:[facility] Start: 02-10-2025 ambulatory Renard Burgos OLS Faci lity:[facility] Start: 02-03-2025 Registered Referred Renard Burgos - [facility] Start: 02-03-2025 End: 02-03-2025 ambulatory Renard GARLAND Facility:[facility] Start: 01-27-2025 Registered Referred Renard Burgos - [facility] Start: 01-27-2025 End: 01-27-2025 ambulatory Renard Burgos OLS Facility:[facility] Start: 01-20-2025 Registered Referred Renard Burgos - [facility] Start: 01-20-2025 End: 01-20-2025 ambulatory Renard GARLAND Facility:[facility] Start: 01-13-2025 Registered Referred Renard Amezquitaros - [facility] Start: 01-13-2025 End: 01-13-2025 ambulatory Renard GARLAND Facility:[facility] Start: 01-10-2025 Registered Referred Renard Burgos - [facility] Start: 01-10-2025 End: 01-10-2025 ambulatory Renard GARLAND Facility:[facility] Start: 01-06-2025 Registered Referred Renard Amezquitaros - [facility] Start: 01-06-2025 End: 01-06-2025 ambulatory Renard GARLAND Facility:[facility] Start: 12-31-2024 Registered Referred Renard Burgos - [facility] Start: 12-31-2024 End: 12-31-2024 ambulatory Renard GARLAND Facility:[facility] Start: 12-23-2024 End: 12-23-2024 ambulatory Renard GARLAND -[facility] Start: 12-23-2024 End: 12-23-2024 Departed Referred Renard Burgos -[facility] Start: 12-23-2024 End: 12-23-2024 ambulatory Renard GARLAND Facility:[facility] Start: 12-16-2024 ambulatory Renard GARLAND Faci lity:[facility] Start: 12-16-2024 Registered Referred Renard Amezquitaros - [facility] Start: 12-09-2024 ambulatory Renard GARLAND Faci lity:[facility] Start: 12-09-2024 Registered Referred Renard Burgos - [facility] Start: 12-02-2024 Registered Referred Renard Amezquitaros - [facility] Start: 12-02-2024 End: 12-02-2024 ambulatory Renard GARLAND Facility:[facility] Start: 11-25-2024 Registered Referred Renard Amezquitaros - [facility] Start: 11-25-2024 End: 11-25-2024 ambulatory Renard GARLAND Facility:[facility] Start: 11-18-2024 ambulatory Renard GARLAND Faci lity:[facility] Start: 11-18-2024 Registered Referred Renard Hensleysaros - [facility] Start: 11-11-2024 Registered Referred Renard Amezquitaros - [facility] Start: 11-11-2024 End: 11-11-2024 ambulatory Renard GARLAND Facility:[facility] Start: 11-04-2024 Registered Referred Renard Burgos - [facility] Start: 11-04-2024 End: 11-04-2024 ambulatory Renard GARLAND Facility:[facility] Start: 10-28-2024 Registered Referred Renard Amezquitaros - [facility] Start: 10-28-2024 End: 10-28-2024 ambulatory Renard GARLAND Facility:[facility] Start: 10-21-2024 End: 10-21-2024 ambulatory Renard GARLAND -[facility] Start: 10-21-2024 End: 10-21-2024 Departed Referred Renard Burgos -[facility] Start: 10-21-2024 Registered Referred Renard Amezquitaros - [facility] Start: 10-21-2024 End: 10-21-2024 ambulatory Renard GARLAND Facility:[facility] Start: 10-14-2024 ambulatory Renard GARLAND Faci lity:[facility] Start: 10-14-2024 Registered Referred Renard Amezquitaros - [facility] Start: 10-07-2024 ambulatory Renard GARLAND Faci lity:[facility] Start: 10-07-2024 Registered Referred Renard Burgos - [facility] Start: 09-30-2024 ambulatory Renard GARLAND Faci lity:[facility] Start: 09-30-2024 Registered Referred Renard Burgos - [facility] Start: 09-24-2024 End: 09-24-2024 ambulatory Renard GARLAND -[facility] Start: 09-24-2024 End: 09-24-2024 Departed Referred Renard Burgos -[facility] Start: 09-24-2024 Registered Referred Renard Burgos - [facility] Start: 09-24-2024 End: 09-24-2024 ambulatory Renard GARLAND Facility:[facility] Start: 09-16-2024 End: 09-16-2024 ambulatory Renard GARLAND -[facility] Start: 09-16-2024 End: 09-16-2024 Departed Referred Renard Burgos -[facility] Start: 09-16-2024 Registered Referred Renard Burgos - [facility] Start: 09-16-2024 End: 09-16-2024 ambulatory Renard GARLAND Facility:[facility] Start: 09-11-2024 End: 09-11-2024 ambulatory Renard GARLAND [facility] Work Phone: Start: 09-11-2024 End: 09-11-2024 Departed Referred Renard Burgos -[facility] Start: 09-11-2024 Registered Referred Renard Burgos - [facility] Start: 09-11-2024 End: 09-11-2024 ambulatory Renard GARLAND Facility:[facility] Start: 09-09-2024 End: 09-09-2024 ambulatory Renard GARLAND [facility] Work Phone: Start: 09-09-2024 End: 09-09-2024 Departed Referred Renard Burgos -[facility] Start: 09-09-2024 Registered Referred Renard Burgos - [facility] Start: 09-09-2024 End: 09-09-2024 ambulatory Renard GARLAND Facility:[facility] Start: 09-02-2024 End: 09-02-2024 ambulatory Renard GARLAND [facility] Work Phone: Start: 09-02-2024 End: 09-02-2024 Departed Referred Renard Burgos -[facility] Start: 09-02-2024 Registered Referred Renard Burgos - [facility] Start: 09-02-2024 End: 09-02-2024 ambulatory Renard GARLAND Facility:[facility] Start: 08-26-2024 End: 08-26-2024 ambulatory Renard GARLAND [facility] Work Phone: Start: 08-26-2024 End: 08-26-2024 Departed Referred Renard Burgos -[facility] Start: 08-26-2024 Registered Referred Renard Burgos - [facility] Start: 08-26-2024 End: 08-26-2024 ambulatory Renard GARLAND Facility:[facility] Start: 08-23-2024 End: 08-23-2024 Departed Referred Renard Burgos -[facility] Start: 08-23-2024 Registered Referred Renard Burgos - [facility] Start: 08-23-2024 End: 08-23-2024 ambulatory Renard GARLAND Facility:[facility] Start: 08-19-2024 End: 08-19-2024 ambulatory Renard GARLAND [facility] Work Phone: Start: 08-19-2024 End: 08-19-2024 Departed Referred Renard Burgos -[facility] Start: 08-19-2024 Registered Referred Renard Burgos - [facility] Start: 08-19-2024 End: 08-19-2024 ambulatory Renard GARLAND Facility:[facility] Start: 08-12-2024 End: 08-12-2024 ambulatory Renard GARLAND [facility] Work Phone: Start: 08-12-2024 End: 08-12-2024 Departed Referred Renard Burgos -[facility] Start: 08-12-2024 Registered Referred Renard Burgos - [facility] Start: 08-12-2024 End: 08-12-2024 ambulatory Renard GARLAND Facility:[facility] Start: 08-05-2024 End: 08-05-2024 Departed Referred Renard Burgos -[facility] Start: 08-05-2024 Registered Referred Renard Burgos - [facility] Start: 08-05-2024 End: 08-05-2024 ambulatory Renard GARLAND Facility:[facility] Start: 07-29-2024 End: 07-29-2024 ambulatory Renard GARLAND [facility] Work Phone: Start: 07-29-2024 End: 07-29-2024 Departed Referred Renard Burgos -[facility] Start: 07-29-2024 Registered Referred Renard Burgos - [facility] Start: 07-29-2024 End: 07-29-2024 ambulatory Renard GARLAND Facility:[facility] Start: 07-22-2024 End: 07-22-2024 ambulatory Renard GARLAND [facility] Work Phone: Start: 07-22-2024 End: 07-22-2024 Departed Referred Renard Burgos -[facility] Start: 07-22-2024 Registered Referred Renard Burgos - [facility] Start: 07-22-2024 End: 07-22-2024 ambulatory Renard GARLAND Facility:[facility] Start: 07-16-2024 End: 07-16-2024 ambulatory Renard GARLAND [facility] Work Phone: Start: 07-16-2024 End: 07-16-2024 Departed Referred Renard Burgos -[facility] Start: 07-16-2024 Registered Referred Renard Burgos - [facility] Start: 07-15-2024 End: 07-16-2024 ambulatory Renard GARLAND [facility] Work Phone: Start: 07-15-2024 End: 07-15-2024 Departed Referred Renard Hensleysaros -[facility] Start: 07-15-2024 Registered Referred Renard Hensleysaros - [facility] Start: 07-15-2024 End: 07-15-2024 ambulatory Renard GARLAND Facility:[facility] Start: 07-08-2024 End: 07-08-2024 ambulatory Renard GARLAND [facility] Work Phone: Start: 07-08-2024 End: 07-08-2024 Departed Referred Renard Hensleysaros -[facility] Start: 07-08-2024 Registered Referred Renard Hensleysaros - [facility] Start: 07-08-2024 End: 07-08-2024 ambulatory Renard GARLAND Facility:[facility] Start: 07-01-2024 End: 07-01-2024 ambulatory Renard GARLAND [facility] Work Phone: Start: 07-01-2024 End: 07-01-2024 Departed Referred Renard Hensleysaros -[facility] Start: 07-01-2024 Registered Referred Renard Shelliesaros - [facility] Start: 07-01-2024 End: 07-01-2024 ambulatory Renard GARLAND Facility:[facility] Start: 06-27-2024 End: 06-27-2024 ambulatory Renard GARLAND [facility] Work Phone: Start: 06-27-2024 End: 06-27-2024 Departed Referred Renard Hensleysaros -[facility] Start: 06-27-2024 Registered Referred Renard Hensleysaros - [facility] Start: 06-27-2024 End: 06-27-2024 ambulatory Renard GARLAND Facility:[facility] Start: 06-24-2024 End: 06-24-2024 Subsequent hospital visit by physician Rashaad Smith APRN - SIM Work Phone: [facility] Comment on above: Chronic cough Start: 06-24-2024 End: 06-24-2024 ambulatory DARINKA SARAH [facility] Start: 06-24-2024 End: 06-24-2024 Departed Referred Renard Burgos -[facility] Start: 06-24-2024 Registered Referred Renard Burgos - [facility] Start: 06-24-2024 End: 06-24-2024 ambulatory Renard GARLAND Facility:[facility] Start: 06-17-2024 End: 06-17-2024 ambulatory Renard GARLAND [facility] Work Phone: Start: 06-17-2024 End: 06-17-2024 Departed Referred Renard Burgos -[facility] Start: 06-17-2024 Registered Referred Renard Burgos - [facility] Start: 06-17-2024 End: 06-17-2024 ambulatory Renard GARLAND Facility:[facility] Start: 06-12-2024 End: 09-11-2024 Transcribe Orders Tylerdemarcus Sarah [employer]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 Work Phone: [facility] Central Scheduling Comment on above: Chronic cough (Prima ry Dx) Start: 06-10-2024 End: 06-10-2024 ambulatory Renard GARLAND [facility] Work Phone: Start: 06-10-2024 End: 06-10-2024 Departed Referred Renard Burgos -[facility] Start: 06-10-2024 Registered [facility] Start: 06-10-2024 End: 06-10-2024 ambulatory Renard GARLAND Facility:[facility] Start: 06-07-2024 End: 06-07-2024 ambulatory Renard GARLAND [facility] Work Phone: Start: 06-07-2024 End: 06-07-2024 Departed Referred Renard Burgos -[facility] Start: 06-07-2024 Registered Ref[facility] Start: 06-07-2024 End: 06-07-2024 ambulatory Renard GARLAND Facility:[facility] Start: 06-03-2024 End: 06-03-2024 ambulatory Renard GARLAND [facility] Work Phone: Start: 06-03-2024 End: 06-03-2024 Departed Ref[facility] Start: 06-03-2024 End: 06-03-2024 ambulatory Renard GARLAND Facility:[facility] Start: 05-27-2024 End: 05-27-2024 Departed Referred Renard Burgos -[facility] Start: 05-27-2024 End: 05-27-2024 ambulatory Rneard GARLAND Facility:[facility] Start: 05-20-2024 End: 05-20-2024 Departed Referred Renard Burgos -[facility] Start: 05-20-2024 End: 05-20-2024 ambulatory Renard GARLAND Facility:[facility] Start: 05-13-2024 End: 05-13-2024 Departed Referred Renard Burgos -[facility] Start: 05-13-2024 End: 05-13-2024 ambulatory Renard GARLAND Facility:[facility] Start: 05-06-2024 End: 05-06-2024 Departed Referred Renard Burgos [facility] Start: 05-06-2024 End: 05-06-2024 ambulatory Renard GARLAND Facility:[facility] Start: 05-03-2024 End: 05-03-2024 Telephone encounter Renard Burgos Work Phone: [facility] Clinical Communication Comment on above: Other Start: 04-29-2024 End: 04-29-2024 Departed Referred Renard Burgos -[facility] Start: 04-29-2024 End: 04-29-2024 ambulatory Renard GARLAND Facility:[facility] Start: 04-22-2024 End: 04-22-2024 Departed Referred Renard Burgos [facility] Start: 04-22-2024 End: 04-22-2024 ambulatory Renard GARLAND Facility:[facility] Start: 04-15-2024 End: 04-15-2024 Departed Referred Renard Burgos [facility] Start: 04-15-2024 End: 04-15-2024 ambulatory Renard GARLAND Facility:[facility] Start: 04-08-2024 ambulatory Renard GARLAND Faci lity:[facility] Start: 04-08-2024 Registered Referred Renard Burgos - [facility] Start: 04-01-2024 ambulatory Renard GARLAND Faci lity:[facility] Start: 04-01-2024 Registered Referred Renard Burgos - [facility] Start: 03-25-2024 End: 03-25-2024 Departed Referred Renard Burgos [facility] Start: 03-25-2024 End: 03-25-2024 ambulatory Renard GARLAND Facility:[facility] Start: 03-18-2024 End: 03-18-2024 Departed Referred Renard Burgos [facility] Start: 03-18-2024 End: 03-18-2024 ambulatory Renard GARLAND Facility:[facility] Start: 03-11-2024 End: 03-11-2024 Departed Referred Renard Burgos [facility] Start: 11-22-2023 End: 11-22-2023 ambulatory RENARD BURGOS [facility] Start: 11-22-2023 End: 11-22-2023 Subsequent hospital visit by physician Renard Burgos Work Phone: [facility] X-ray Imaging Comment on above: Dysphagia, oropharyn geal phase; Feeding difficulties Start: 10-16-2023 End: 01-15-2024 Transcribe Orders Renard Burgos Work Phone: [facility] Central Scheduling Comment on above: Dysphagia, oropharyn geal phase (Primary Dx); Feeding difficulties Start: 10-02-2023 End: 10-02-2023 Emergency department patient visit Fei Farooq MD Work Phone: [facility] ED Comment on above: Dyspnea, unspecified type (Primary Dx) Start: 08-07-2023 [facility] Start: 07-31-2023 End: 07-31-2023 ambulatory [facility] Work Phone: Start: 07-31-2023 End: 07-31-2023 Departed Referred [facility] Start: 07-31-2023 Registered Referred [facility] Start: 07-24-2023 End: 07-24-2023 ambulatory [facility] Work Phone: Start: 07-24-2023 End: 07-24-2023 [facility] Start: 07-17-2023 End: 07-17-2023 ambulatory [facility] Work Phone: Start: 07-17-2023 End: 07-17-2023 [facility] Start: 07-17-2023 Registered Referred [facility] Start: 07-10-2023 End: 07-10-2023 ambulatory [facility] Work Phone: Start: 07-10-2023 End: 07-10-2023 Departed Referred [facility] Start: 07-10-2023 Registered Referred [facility] Start: 07-03-2023 End: 07-03-2023 ambulatory [facility] Work Phone: Start: 07-03-2023 End: 07-03-2023 [facility] Start: 07-03-2023 Registered Referred [facility] Start: 06-26-2023 [facility] Start: 06-19-2023 End: 06-19-2023 ambulatory [facility] Work Phone: Start: 06-19-2023 End: 06-19-2023 Departed Referred [facility] Start: 06-19-2023 [facility] Start: 06-12-2023 End: 06-12-2023 ambulatory [facility] Work Phone: Start: 06-12-2023 End: 06-12-2023 [facility] Start: 06-12-2023 [facility] Start: 06-05-2023 End: 06-05-2023 ambulatory [facility] Work Phone: Start: 06-05-2023 End: 06-05-2023 [facility] Start: 06-05-2023 [facility] Start: 05-29-2023 End: 05-29-2023 [facility] Start: 05-29-2023 [facility] Start: 05-22-2023 End: 05-22-2023 ambulatory [facility] Work Phone: Start: 05-22-2023 End: 05-22-2023 [facility] Start: 05-22-2023 [facility] Start: 05-15-2023 End: 05-15-2023 [facility] Start: 05-15-2023 [facility] Start: 05-08-2023 End: 05-08-2023 ambulatory [facility] Work Phone: Start: 05-08-2023 End: 05-08-2023 [facility] Start: 04-17-2023 End: 04-17-2023 ambulatory [facility] Work Phone: Start: 04-17-2023 End: 04-17-2023 Departed Referred [facility] Start: 04-17-2023 Registered Referred [facility] Start: 04-14-2023 End: 04-14-2023 ambulatory [facility] Work Phone: Start: 04-14-2023 End: 04-14-2023 Departed Referred [facility] Start: 04-14-2023 Registered Referred [facility] Start: 04-10-2023 End: 04-10-2023 [facility] Start: 04-10-2023 Registered Referred [facility] Start: 04-03-2023 End: 04-03-2023 ambulatory [facility] Work Phone: Start: 04-03-2023 End: 04-03-2023 Departed Referred [facility] Start: 04-03-2023 Registered Referred [facility] Start: 03-27-2023 End: 03-27-2023 ambulatory [facility] Work Phone: Start: 03-27-2023 End: 03-27-2023 [facility] Start: 03-27-2023 Registered Referred [facility] Start: 03-20-2023 End: 03-20-2023 ambulatory [facility] Work Phone: Start: 03-20-2023 End: 03-20-2023 Departed Referred [facility] Start: 03-20-2023 Registered Referred [facility] Start: 03-16-2023 End: 03-16-2023 ambulatory [facility] Work Phone: Start: 03-16-2023 End: 03-16-2023 Departed Referred [facility] Start: 03-16-2023 [facility] Start: 03-13-2023 End: 03-13-2023 ambulatory [facility] Work Phone: Start: 03-13-2023 End: 03-13-2023 [facility] Start: 03-06-2023 End: 03-06-2023 ambulatory [facility] Work Phone: Start: 03-06-2023 End: 03-06-2023 [facility] Start: 03-06-2023 [facility] Start: 02-27-2023 End: 02-27-2023 ambulatory [facility] Work Phone: Start: 02-27-2023 End: 02-27-2023 [facility] Start: 02-20-2023 End: 02-20-2023 ambulatory [facility] Work Phone: Start: 02-20-2023 End: 02-20-2023 [facility] Start: 02-20-2023 [facility] Start: 02-13-2023 End: 02-13-2023 ambulatory [facility] Work Phone: Start: 02-13-2023 End: 02-13-2023 [facility] Start: 02-13-2023 [facility] Start: 02-06-2023 End: 02-06-2023 ambulatory [facility] Work Phone: Start: 02-06-2023 End: 02-06-2023 [facility] Start: 02-06-2023 [facility] Start: 01-30-2023 End: 01-30-2023 ambulatory [facility] Work Phone: Start: 01-30-2023 End: 01-30-2023 Departed Referred [facility] Start: 01-30-2023 Registered Referred [facility] Start: 01-23-2023 End: 01-23-2023 Departed Referred [facility] Start: 01-23-2023 Registered Referred [facility] Start: 01-16-2023 End: 01-16-2023 ambulatory [facility] Work Phone: Start: 01-16-2023 End: 01-16-2023 [facility] Start: 01-16-2023 Registered Referred [facility] Start: 01-09-2023 End: 01-09-2023 [facility] Start: 01-09-2023 Registered Referred [facility] Start: 01-03-2023 End: 01-03-2023 ambulatory [facility] Work Phone: Start: 01-03-2023 End: 01-03-2023 [facility] Start: 01-03-2023 Registered Referred [facility] Start: 12-26-2022 End: 12-26-2022 ambulatory [facility] Work Phone: Start: 12-26-2022 End: 12-26-2022 [facility] Start: 12-26-2022 [facility] Start: 12-19-2022 End: 12-19-2022 ambulatory [facility] Work Phone: Start: 12-19-2022 End: 12-19-2022 Departed Referred [facility] Start: 12-19-2022 Registered Referred [facility] Start: 12-12-2022 End: 12-12-2022 [facility] Start: 12-12-2022 [facility] Start: 12-05-2022 End: 12-05-2022 ambulatory [facility] Work Phone: Start: 12-05-2022 End: 12-05-2022 [facility] Start: 12-05-2022 [facility] Start: 11-28-2022 End: 11-28-2022 ambulatory [facility] Work Phone: Start: 11-28-2022 End: 11-28-2022 [facility] Start: 11-28-2022 [facility] Start: 11-21-2022 End: 11-21-2022 ambulatory [facility] Work Phone: Start: 11-21-2022 End: 11-21-2022 [facility] Start: 11-21-2022 [facility] Start: 11-14-2022 End: 11-14-2022 ambulatory [facility] Work Phone: Start: 11-14-2022 End: 11-14-2022 [facility] Start: 11-14-2022 [facility] Start: 11-07-2022 [facility] Start: 10-31-2022 End: 10-31-2022 ambulatory [facility] Work Phone: Start: 10-31-2022 End: 10-31-2022 Departed Referred [facility] Start: 10-31-2022 Registered Referred [facility] Start: 10-24-2022 End: 10-24-2022 ambulatory [facility] Work Phone: Start: 10-24-2022 End: 10-24-2022 Departed Referred [facility] Start: 10-24-2022 Registered Referred [facility] Start: 10-17-2022 End: 10-17-2022 Departed Referred [facility] Start: 10-17-2022 Registered Referred [facility] Start: 10-10-2022 End: 10-10-2022 ambulatory [facility] Work Phone: Start: 10-10-2022 End: 10-10-2022 Departed Referred [facility] Start: 10-10-2022 Registered Referred [facility] Start: 10-03-2022 End: 10-03-2022 ambulatory [facility] Work Phone: Start: 10-03-2022 End: 10-03-2022 [facility] Start: 09-19-2022 End: 09-19-2022 Departed Referred [facility] Start: 09-19-2022 Registered Referred [facility] Start: 09-12-2022 End: 09-12-2022 ambulatory [facility] Work Phone: Start: 09-12-2022 End: 09-12-2022 Departed Referred [facility] Start: 09-05-2022 End: 09-05-2022 Departed Referred [facility] Start: 09-05-2022 Registered Referred [facility] Start: 08-29-2022 End: 08-29-2022 Departed Referred [facility] Start: 08-29-2022 Registered Referred [facility] Start: 08-22-2022 End: 08-22-2022 ambulatory [facility] Work Phone: Start: 08-22-2022 End: 08-22-2022 Departed Referred [facility] Start: 08-22-2022 Registered Referred [facility] Start: 08-15-2022 End: 08-15-2022 ambulatory [facility] Work Phone: Start: 08-15-2022 End: 08-15-2022 [facility] Start: 08-15-2022 Registered Referred [facility] Start: 08-08-2022 End: 08-08-2022 Departed Referred [facility] Start: 08-08-2022 Registered Referred [facility] Start: 08-01-2022 End: 08-01-2022 ambulatory [facility] Work Phone: Start: 08-01-2022 End: 08-01-2022 Departed Referred [facility] Start: 08-01-2022 [facility] Start: 07-25-2022 End: 07-25-2022 ambulatory [facility] Work Phone: Start: 07-25-2022 End: 07-25-2022 Departed Referred [facility] Start: 07-25-2022 [facility] Start: 07-19-2022 End: 07-19-2022 Departed Referred [facility] Start: 07-19-2022 [facility] Start: 07-18-2022 End: 07-18-2022 ambulatory [facility] Work Phone: Start: 07-18-2022 End: 07-18-2022 Departed Referred [facility] Start: 07-18-2022 Registered Referred [facility] Start: 07-11-2022 End: 07-11-2022 ambulatory [facility] Work Phone: Start: 07-11-2022 End: 07-11-2022 [facility] Start: 07-11-2022 [facility] Start: 07-04-2022 End: 07-04-2022 [facility] Start: 07-04-2022 [facility] Start: 06-27-2022 End: 06-27-2022 ambulatory [facility] Work Phone: Start: 06-27-2022 End: 06-27-2022 [facility] Start: 06-27-2022 [facility] Start: 06-20-2022 End: 06-20-2022 ambulatory [facility] Work Phone: Start: 06-20-2022 End: 06-20-2022 [facility] Start: 06-20-2022 [facility] Start: 06-13-2022 End: 06-13-2022 ambulatory [facility] Work Phone: Start: 06-13-2022 End: 06-13-2022 [facility] Start: 06-13-2022 [facility] Start: 06-06-2022 End: 06-06-2022 [facility] Start: 06-06-2022 [facility] Start: 05-30-2022 End: 05-30-2022 ambulatory [facility] Work Phone: Start: 05-30-2022 End: 05-30-2022 Departed Referred [facility] Start: 05-23-2022 End: 05-23-2022 ambulatory [facility] Work Phone: Start: 05-23-2022 End: 05-23-2022 Departed Ref[facility] Start: 05-23-2022 Registered Ref[facility] Start: 05-20-2022 End: 05-20-2022 Emergency department patient visit Abelardo A Gabriel GOMEZ Work Phone: [facility] ED Comment on above: Dislodged gastrostom y tube (Primary Dx) Start: 05-16-2022 End: 05-16-2022 [facility] Start: 05-16-2022 [facility] Start: 05-09-2022 End: 05-09-2022 ambulatory [facility] Work Phone: Start: 05-09-2022 End: 05-09-2022 [facility] Start: 05-09-2022 [facility] Start: 05-03-2022 End: 05-03-2022 ambulatory [facility] Work Phone: Start: 05-03-2022 End: 05-03-2022 [facility] Start: 05-03-2022 [facility] Start: 04-26-2022 End: 04-26-2022 Departed Referred [facility] Start: 04-26-2022 Registered Referred [facility] Start: 04-18-2022 End: 04-18-2022 ambulatory [facility] Work Phone: Start: 04-18-2022 End: 04-18-2022 [facility] Start: 04-18-2022 Registered Referred [facility] Start: 04-14-2022 End: 04-14-2022 ambulatory [facility] Work Phone: Start: 04-14-2022 End: 04-14-2022 [facility] Start: 04-14-2022 [facility] Start: 04-11-2022 End: 04-11-2022 ambulatory [facility] Work Phone: Start: 04-11-2022 End: 04-11-2022 [facility] Start: 04-11-2022 Registered Referred [facility] Start: 04-04-2022 End: 04-04-2022 ambulatory [facility] Work Phone: Start: 04-04-2022 End: 04-04-2022 [facility] Start: 04-04-2022 Registered Referred [facility] Start: 03-28-2022 End: 03-28-2022 ambulatory [facility] Work Phone: Start: 03-28-2022 End: 03-28-2022 [facility] Start: 03-28-2022 Registered Referred [facility] Start: 03-21-2022 End: 03-21-2022 ambulatory [facility] Work Phone: Start: 03-21-2022 End: 03-21-2022 Departed Referred [facility] Start: 03-21-2022 Registered Referred [facility] Start: 03-14-2022 End: 03-14-2022 Departed Referred [facility] Start: 03-14-2022 Registered Referred [facility] Start: 2022 End: 2022 ambulatory [facility] Work Phone: Start: 2022 End: 2022 [facility] Start: 2022 Registered Referred [facility] Start: 02-28-2022 End: 02-28-2022 [facility] Start: 02-28-2022 Registered Referred [facility] Start: 02-21-2022 End: 02-21-2022 ambulatory [facility] Work Phone: Start: 02-21-2022 End: 02-21-2022 [facility] Start: 02-21-2022 Registered Referred [facility] Start: 02-14-2022 End: 02-14-2022 ambulatory [facility] Work Phone: Start: 02-14-2022 End: 02-14-2022 Departed Referred [facility] Start: 02-14-2022 Registered Referred [facility] Start: 02-07-2022 End: 02-07-2022 ambulatory [facility] Work Phone: Start: 02-07-2022 End: 02-07-2022 [facility] Start: 02-07-2022 Registered Referred [facility] Start: 01-31-2022 End: 01-31-2022 ambulatory [facility] Work Phone: Start: 01-31-2022 End: 01-31-2022 Departed Referred [facility] Start: 01-31-2022 Registered Referred [facility] Start: 01-24-2022 End: 01-24-2022 ambulatory [facility] Work Phone: Start: 01-24-2022 End: 01-24-2022 [facility] Start: 01-24-2022 [facility] Start: 01-17-2022 End: 01-17-2022 [facility] Start: 01-17-2022 [facility] Start: 01-10-2022 End: 01-10-2022 ambulatory [facility] Work Phone: Start: 01-10-2022 End: 01-10-2022 [facility] Start: 01-10-2022 [facility] Start: 01-04-2022 End: 01-04-2022 ambulatory [facility] Work Phone: Start: 01-04-2022 End: 01-04-2022 [facility] Start: 01-04-2022 [facility] Start: 12-27-2021 End: 12-27-2021 ambulatory [facility] Work Phone: Start: 12-27-2021 End: 12-27-2021 [facility] Start: 12-27-2021 [facility] Start: 12-20-2021 End: 12-20-2021 ambulatory [facility] Work Phone: Start: 12-20-2021 End: 12-20-2021 Departed Referred [facility] Start: 12-20-2021 [facility] Start: 12-13-2021 End: 12-13-2021 Departed Referred [facility] Start: 12-13-2021 [facility] Start: 12-06-2021 End: 12-06-2021 ambulatory [facility] Work Phone: Start: 12-06-2021 End: 12-06-2021 [facility] Start: 12-06-2021 [facility] Start: 11-29-2021 End: 11-29-2021 ambulatory [facility] Work Phone: Start: 11-29-2021 End: 11-29-2021 Departed Referred [facility] Start: 11-29-2021 Registered Referred [facility] Counts Include 234 [facility] Start: 11-22-2021 End: 11-22-2021 Departed Referred [facility] Start: 11-22-2021 Registered Referred [facility] Counts Include 234 Beds At [facility] Start: 11-15-2021 End: 11-15-2021 Departed Referred [facility] Start: 11-15-2021 Registered Referred [facility] Counts Include 234 Beds At [facility] Start: 11-08-2021 End: 11-08-2021 Departed Referred [facility] Start: 10-25-2021 Registered Referred [facility] Counts Include 234 Beds At [facility] Start: 10-18-2021 [facility] Start: 10-11-2021 Registered Referred [facility] Counts Include 234 Beds At [facility] Start: 10-04-2021 Registered Referred [facility] Start: 09-28-2021 End: 09-28-2021 [facility] Start: 09-28-2021 [facility] Start: 09-20-2021 End: 09-20-2021 [facility] Start: 09-20-2021 [facility] Start: 09-13-2021 End: 09-13-2021 [facility] Start: 09-13-2021 [facility] Start: 09-06-2021 End: 09-06-2021 [facility] Start: 09-06-2021 [facility] Start: 08-30-2021 End: 08-30-2021 [facility] Start: 08-30-2021 Registered [facility]erred [facility] Start: 08-23-2021 End: 08-23-2021 [facility] Start: 08-23-2021 [facility] Start: 08-18-2021 End: 08-18-2021 [facility] Start: 08-18-2021 [facility] Start: 08-16-2021 End: 08-16-2021 [facility] Start: 08-16-2021 [facility] Start: 08-09-2021 End: 08-09-2021 [facility] Start: 08-02-2021 End: 08-02-2021 Departed Referred [facility] Start: 08-02-2021 Registered Referred [facility] Start: 07-26-2021 End: 07-26-2021 Departed Referred [facility] Start: 07-26-2021 [facility] Start: 07-19-2021 End: 07-19-2021 [facility] Start: 07-19-2021 Registered [facility] Start: 07-12-2021 End: 07-12-2021 [facility] Start: 07-05-2021 End: 07-05-2021 [facility] Start: 07-05-2021 [facility] Start: 06-28-2021 End: 06-28-2021 [facility] Start: 06-28-2021 Registered Referred [place] [facility] Counts Include 234 Beds At [facility] Start: 06-21-2021 End: 06-21-2021 [facility] Start: 06-21-2021 [facility] Start: 06-14-2021 Registered Referred [facility] Counts Include 234 Beds At [facility] Start: 06-07-2021 End: 06-07-2021 Departed [facility] Start: 06-07-2021 [facility] Start: 05-31-2021 End: 05-31-2021 [facility] Start: 05-31-2021 Registered Referred [facility] Counts Include 234 Beds At [facility] Start: 05-24-2021 End: 05-24-2021 [facility]ed [facility] Start: 05-17-2021 [facility] Start: 05-15-2021 End: 05-15-2021 Emergency department patient visit Timothy Burton DO Work Phone: [facility] Comment on above: PEG tube malfunction (HCC) (Primary Dx) Start: 05-14-2021 Registered Referred [facility] Start: 05-10-2021 Registered Referred [facility] Start: 05-03-2021 [facility] Start: 04-26-2021 [facility] Start: 04-19-2021 [facility] Start: 04-12-2021 [facility] Start: 04-07-2021 [facility] Start: 03-19-2021 End: 03-24-2021 Evaluation and management of inpatient Brady Desai DO Work Phone: [facility] Comment on above: Respiratory syncytia l virus (RSV) (Primary Dx); Hypoxia Start: 03-18-2021 End: 03-18-2021 Emergency department patient visit Boo Castro MD Work Phone: [facility] Comment on above: Respiratory syncytia l virus (RSV) (Primary Dx); Hypoxia Start: 10-30-2020 End: 10-30-2020 Emergency department patient visit Bethany Clemons MD Work Phone: [facility] Comment on above: Feeding tube dysfunc tion, initial encounter (Primary Dx) Start: 09-22-2020 End: 09-22-2020 Emergency department patient visit Elizabeth Moura MD Work Phone: [facility] Comment on above: PEG tube malfunction (HCC) (Primary Dx) Start: 06-26-2020 End: 06-26-2020 Emergency department patient visit Abelardo Rios Work Phone: [facility] Comment on above: PEG tube malfunction (HCC) (Primary Dx) Start: 05-22-2019 End: 05-22-2019 Patient encounter procedure Jarvis Kendall MD Work Phone: [facility] Work Phone: Start: 05-22-2019 End: 05-22-2019 Pt evaluation Jarvis Kendall MD Work Phone: [facility] Work Phone: Start: 05-16-2019 End: 05-16-2019 Emergency department patient visit Elizabeth Moura MD Work Phone: [facility] Comment on above: Contusion of right h ip, initial encounter (Primary Dx) Start: 08-15-2018 Evaluation and management of inpatient UNKNOWN PROVIDER [facility] Start: 07-08-2018 Evaluation and management of inpatient JORDAN GEUBE [facility] Start: 01-02-2003 End: 01-02-2003 Patient encounter procedure Beni Vera Work Phone: [facility] Start: 01-02-2003 Results Only Beni Cappsr Work Phone: [facility] Procedures Date Procedure Procedure Detail Performing [...] EMDF, PT, BMP3M, PHOS3, MG3, CK3 #### [facility] [address], [place] #### [id number] #### [facility] [address] [place] [address] Start: 07-27-2018 Microscopic examinat ion of blood, culture Comment on above: Order Comment: Speci men Source Comment:Blood Performed By: #### H EMDF, PT, BMP3M, PHOS3, MG3, CK3 #### [facility] [address], [place] #### [id number] #### [facility] [address] [place] [address] Start: 07-19-2018 Microscopic examinat ion of blood, culture Comment on above: Order Comment: Speci men Source Comment:Blood Performed By: #### H EMDF, PT, BMP3M, PHOS3, MG3, CK3 #### [facility] [address], [place] #### [id number] #### [facility] [address] [place] [address] Start: 01-02-2003 CONVERTED SURGICAL PATHOLOGY Beni Vera [...] for Adults (1 - 1-dose 75+ series) [facility] Start: 01-10-2027 DTaP/Tdap/Td vaccine (2 - Td or Tdap) DTaP/Tdap/Td vaccine (2 - Td or Tdap) [facility] Start: 01-10-2027 DTaP/Tdap/Td vaccine (2 - Td) DTaP/Tdap/Td vaccine (2 - Td) [facility] Work Phone: Start: 01-10-2027 DTaP/Tdap/Td Vaccine s (2 - Td or Tdap) DTaP/Tdap/Td Vaccines (2 - Td or Tdap) [facility] Start: 02-24-2025 Registered Referred Registered [facility] Start: 02-21-2025 Registered Referred Registered [facility] Start: 02-17-2025 Registered Referred Registered [facility] Start: 02-10-2025 Registered Referred Registered [facility] Start: 12-30-2024 Influenza vaccination Influenz a Vaccine (Season Ended) [facility] Start: 03-22-2024 Diabetes mellitus screening Diabetes Screening [facility] Start: 12-31-2023 COVID-19 Vaccine ( season) COVID-19 Vaccine ( season) [facility] Start: 12-31-2023 COVID-19 Vaccine ( season) COVID-19 Vaccine ( season) [facility] Start: 12-31-2023 COVID-19 Vaccine ( season) COVID-19 Vaccine ( season) [facility] Start: 12-31-2023 Influenza vaccination [facility] Start: 01-30-2023 Bacteria identified in Urine by Culture Urine Culture [facility] Start: 01-30-2023 [facility] Start: 12-30-2022 COVID-19 Vaccine ( season) COVID-19 Vaccine ( season) [facility] Start: 2022 Pneumococcal 0-64 ye ars Vaccine (2 of 2 - PPSV23) Pneumococcal 0-64 years Vaccine (2 of 2 - PPSV23) [facility] Start: 2022 Pneumococcal 0-64 ye ars Vaccine (2 of 2) Pneumococcal 0-64 years Vaccine (2 of 2) [facility] Work Phone: Start: 2022 Pneumococcal Vaccine : 65+ Years (2 of 2 - PCV) Pneumococcal Vaccine: 65+ Years (2 of 2 - PCV) [facility] Start: 12-30-2021 Influenza vaccination Influenza Vacc ine (#1) [facility] Start: 12-30-2020 Influenza vaccination [facility] Start: 12-31-2019 Influenza vaccination Flu vaccine (# 1) [facility] Work Phone: Start: 08-18-2019 A1C test (Diabetic o r Prediabetic) A1C test (Diabetic or Prediabetic) [facility] Work Phone: Start: 08-18-2019 HbA1c (Bld) [Mass fraction] A1C test (Diabetic or Prediabetic) [facility] Work Phone: Start: 08-18-2019 Hemoglobin A1c measurement A1C test (Diabetic or Prediabetic) [facility] Start: 05-22-2019 End: 05-22-2019 Appointment Appointment [facility] Work Phone: Start: 02-07-2019 Lipid panel Lipid screen [facility] Start: 02-07-2019 Lipid screen Lipid screen [facility] Work Phone: Start: 12-30-2018 Influenza vaccination Flu vaccine (# 1) [facility] Work Phone: Start: 01-10-2018 Pneumococcal Vaccine : 50+ Years (2 of 2 - PCV) Pneumococcal Vaccine: 50+ Years (2 of 2 - PCV) [facility] Start: 01-10-2018 Pneumococcal Vaccine : 65+ Years (2 - PCV) Pneumococcal Vaccine: 65+ Years (2 - PCV) [facility] Start: 2017 RSV Immunization age d 60 or older (1 - 1-dose 60+ series) RSV Immunization aged 60 or older (1 - 1-dose 60+ series) [facility] Start: 2007 Colon cancer screen colonoscopy Colon cancer screen colonoscopy [facility] Work Phone: Start: 2007 Screening for malign ant neoplasm of colon Colon cancer screen colonoscopy [facility] Work Phone: Start: 2007 Shingles Vaccine (1 of 2) Shingles Vaccine (1 of 2) [facility] Start: 2007 Zoster Vaccines (1 o f 2) Zoster Vaccines (1 of 2) [facility] Start: 2002 Screening for malign ant neoplasm of colon Colon cancer screen colonoscopy [facility] Start: 1976 Hepatitis A Vaccines (1 of 2 - Risk 2-dose series) Hepatitis A Vaccines (1 of 2 - Risk 2-dose series) [facility] Start: 1975 Hepatitis C screening Hepatitis C Sc reening [facility] Start: 1969 COVID-19 Vaccine (1) COVID-19 Vaccin e (1) [facility] Start: 1969 Depression Monitoring Depression Mon [facility] Start: 1969 Depression Screen Depression Screen [facility] Start: 1962 COVID-19 Vaccine (1) COVID-19 Vaccin e (1) [facility] Start: 1957 COVID-19 Vaccine (#1) COVID-19 Vacci ne (#1) [facility] Start: 1957 Annual wellness visit Medicare Initial Physical (IPPE) [facility] Start: 1957 Hepatitis B Vaccines (1 of 3 - 3-dose series) Hepatitis B Vaccines (1 of 3 - 3-dose series) [facility] Start: 1957 Lipid panel Lipid Panel [facility] Start: 1957 Screening for malign ant neoplasm of colon [facility] Basic metabolic 2000 panel - Serum or Plasma Basic Metabolic Panel Lab Routine Daily until discontinued starting 03/23/2021, 2 completed [facility] Work Phone: Comment on above: Daily until disconti nued starting 03/23/2021, 2 completed CBC W Auto Different ial panel - Blood CBC Auto Differential Lab Routine Daily until discontinued starting 03/23/2021, 2 completed [facility] Work Phone: Comment on above: Daily until disconti nued starting 03/23/2021, 2 completed End: 06-24-2024 CT Chest WO contrast [facility] Work Phone: Comment on above: Once for 1 Occurrenc es starting 06/24/2024 until 06/24/2024 Culture, Blood 2 Culture, Blood 2 Microbiology STAT 03/19/2021 6:26 PM EST [facility] Work Phone: End: 03-20-2021 Culture, Respiratory Culture, Respiratory Microbiology Routine One Time for 1 Occurrences starting 03/20/2021 until 03/20/2021 [facility] Work Phone: Comment on above: One Time for 1 Occur rences starting 03/20/2021 until 03/20/2021 EKG 12 Lead EKG 12 Lead ECG STAT 03/18/2021 3:20 PM EST [facility] Work Phone: Feeding Tube Feeding Tube Pro cedures Routine 10/30/2020 2:22 PM EDT [facility] Work Phone: End: 09-22-2020 FL WATER SOLUBLE ENEMA W OR WO KUB FL WATER SOLUBLE ENEMA W OR WO KUB Imaging STAT Once for 1 Occurrences starting 09/22/2020 until 09/22/2020 [facility] Work Phone: Comment on above: Once for 1 Occurrenc es starting 09/22/2020 until 09/22/2020 End: 03-23-2021 Glucose [Mass/volume] in Serum or Plasma POCT GLUCOSE Point of Care Testing Routine Now Then Every 6hr for 7 Occurrences starting 03/21/2021 until 03/23/2021 [facility] Work Phone: Comment on above: Now Then Every 6hr f or 7 Occurrences starting 03/21/2021 until 03/23/2021 High Frequency Chest Wall Oscillation (HFCWO) High Frequency Chest Wall Oscillation (HFCWO) Respiratory Care Routine (respiratory use only) until discontinued starting 03/22/2021 [facility] Work Phone: Comment on above: (respirato ry use only) until discontinued starting 03/22/2021 End: 03-20-2021 Legionella Antigen, Urine Legionella Antigen, Urine Microbiology Routine One Time for 1 Occurrences starting 03/20/2021 until 03/20/2021 [facility] Work Phone: Comment on above: One Time for 1 Occur rences starting 03/20/2021 until 03/20/2021 Microscopic examinat ion of blood, culture Culture, Blood Microbiology STAT 03/19/2021 6:26 PM EST [facility] Work Phone: End: 03-20-2021 Microscopic observation [Identifier] in Unspecified specimen by Gram stain Gram Stain Microbiology Routine Once for 1 Occurrences starting 03/20/2021 until 03/20/2021 [facility] Work Phone: Comment on above: Once for 1 Occurrenc es starting 03/20/2021 until 03/20/2021 Oxygen therapy [[facility] Data Set] Initiate Oxygen Therapy Protocol Respiratory Care Routine Daily until discontinued starting 03/20/2021 [facility] Work Phone: Comment on above: Daily until disconti nued starting 03/20/2021 Patient Education \cps-sql1\CPS_ PtEducati on\CDC_FALL_PREVENTION. pdf, \cps-sql1\CPS_PtEducati on\quitting_smoking_[id number].pdf [facility] Work Phone: RT Communication Order RT Commun ication Order Respiratory Care STAT Daily until discontinued starting 03/18/2021 [employer] Work Phone: Comment on above: Daily until disconti nued starting 03/18/2021 RT Communication Order RT Commun ication Order Respiratory Care Routine Daily until discontinued starting 03/20/2021 [facility] Work Phone: Comment on above: Daily until disconti nued starting 03/20/2021 End: 03-20-2021 STREP PNEUMONIAE ANTIGEN STREP PNEUMONIAE ANTIGEN Microbiology Routine One Time for 1 Occurrences starting 03/20/2021 until 03/20/2021 [facility] Work Phone: Comment on above: One Time for 1 Occur rences starting 03/20/2021 until 03/20/2021 End: 03-18-2021 Urinalysis Urinalysis Lab STAT One Time for 1 Occurrences starting 03/18/2021 until 03/18/2021 [facility] Work Phone: Comment on above: One Time for 1 Occur rences starting 03/18/2021 until 03/18/2021 End: 03-18-2021 Urine Drug Screen Urine Drug Screen Lab STAT One Time for 1 Occurrences starting 03/18/2021 until 03/18/2021 [facility] Work Phone: Comment on above: One Time for 1 Occur rences starting 03/18/2021 until 03/18/2021 End: 09-22-2020 XR ABDOMEN (KUB) (SINGLE AP VIEW) XR ABDOMEN (KUB) (SINGLE AP VIEW) Imaging Routine Once for 1 Occurrences starting 09/22/2020 until 09/22/2020 [facility] Work Phone: Comment on above: Once for 1 Occurrenc es starting 09/22/2020 until 09/22/2020 Immunizations Immunization Date Immunization Notes Care Provider [facility] 02-02-2021 influenza virus vacc ine, unspecified formulation Rashaad Smith 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 Work Phone: [facility] 01-10-2017 pneumococcal polysaccharide vaccine, 23 valent Elizabeth Moura MD Work Phone: [facility] 01-10-2017 tetanus toxoid, redu delia diphtheria toxoid, and acellular pertussis vaccine, adsorbed Elizabeth Moura MD Work Phone: [facility] Work Phone: Payers Date Payer Category Payer Self-pay [id number] 2019 Medicaid [id number] 2019 Medicaid [id number]. [id number] 2018 Private Health Insurance [id number]. [id number] 2018 Private Health [place] [facility] [place] 2018-Present [phone] [address] [place] [address] xxxxxxxxx [id number]. [id number] 1957 Unknown [id number] 2.840.1.933414.3.579.2. 668 1957 Unknown [id number] 2.840.1.767441.3.579.2. 668 Private Health Insurance Unknown [id number] 2.840.1.369525.3.579.2. 462 Unknown [id number] 2.16840.1.861072.3.579.2. 462 Unknown [id number] 2.16840.1.726953.3.579.2. 462 Unknown [id number] 2.840.1.072672.3.579.2. 462 Unknown [id number] 2.16840.1.221089.3.579.2. 462 Unknown [id number] 2.16840.1.259582.3.579.2. 462 Unknown [id number] 2.16840.1.436086.3.579.2. 462 Unknown [id number] 2.16840.1.131742.3.579.2. 462 Unknown [id number] 2.16840.1.594333.3.579.2. 462 Unknown [id number] 2.16.840.1.635106.3.579.2. 462 Unknown [id number] 2.16.840.1.020640.3.579.2. 462 Unknown [id number] 2.16.840.1.438605.3.579.2. 462 Unknown [id number] 2.16.840.1.951054.3.579.2. 462 Unknown [id number] 2.16.840.1.385040.3.579.2. 462 Unknown [id number] 2.16.840.1.069968.3.579.2. 462 Unknown [id number] 2.16840.1.368976.3.579.2. 462 Unknown [id number] 2.840.1.036990.3.579.2. 462 Unknown [id number] 2.840.1.637093.3.579.2. 462 Unknown [id number] 2.840.1.161300.3.579.2. 462 Unknown [id number] 2.16.840.1.991083.3.579.2. 462 Unknown [id number] 2.16840.1.487475.3.579.2. 462 Unknown [id number] 2.16840.1.091247.3.579.2. 462 Unknown [id number] 2.840.1.309779.3.579.2. 462 Unknown [id number] 2.16.840.1.715690.3.579.2. 462 Unknown [id number] 2.16.840.1.000614.3.579.2. 462 Unknown [id number] 2.16.840.1.980563.3.579.2. 462 Unknown [id number] 2.16.840.1.555035.3.579.2. 462 Unknown [id number] 2.16.840.1.827175.3.579.2. 462 Unknown [id number] 2.16840.1.107100.3.579.2. 462 Unknown [id number] 2.16840.1.575357.3.579.2. 462 Unknown [id number] 2.16840.1.688125.3.579.2. 462 Unknown [id number] 2.16840.1.344273.3.579.2. 462 Unknown [id number] 2.16840.1.979531.3.579.2. 462 Unknown [id number] 2.840.1.553873.3.579.2. 462 Unknown [id number] 2.840.1.084408.3.579.2. 462 Unknown [id number] 2.840.1.391850.3.579.2. 462 Unknown [id number] 2.840.1.208813.3.579.2. 462 Unknown [id number] 2.840.1.866017.3.579.2. 462 Unknown [id number] 2.840.1.360546.3.579.2. 462 Unknown [id number] 2.840.1.143085.3.579.2. 462 Unknown [id number] 2.840.1.589776.3.579.2. 462 Unknown [id number] 2.840.1.163718.3.579.2. 462 Unknown [id number] 2.840.1.769945.3.579.2. 462 Unknown [id number] 2.840.1.629691.3.579.2. 462 Unknown [id number] 2.840.1.074935.3.579.2. 462 Unknown [id number] 2.16840.1.317859.3.579.2. 462 Unknown [id number] 2.16.840.1.190181.3.579.2. 462 Unknown [id number] 2.16.840.1.642205.3.579.2. 462 Unknown [id number] 2.16.840.1.168322.3.579.2. 462 Unknown [id number] 2.16.840.1.496712.3.579.2. 462 Unknown [id number] 2.16.840.1.141920.3.579.2. 462 Unknown [id number] 2.16.840.1.575864.3.579.2. 462 Unknown [id number] 2.16.840.1.317680.3.579.2. 462 Unknown [id number] 2.16.840.1.636047.3.579.2. 462 Unknown [id number] 2.16.840.1.189048.3.579.2. 462 Unknown [id number] 2.16.840.1.891847.3.579.2. 462 Unknown [id number] 2.16.840.1.349167.3.579.2. 462 Unknown [id number] 2.16.840.1.536691.3.579.2. 462 Unknown [id number] 2.16.840.1.335077.3.579.2. 462 Social History Date Type Detail Facility Tobacco smoking status NYIS Unknown if ever smoked [facility] Work Phone: Start: 1955 Sex Assigned At Not on file [facility] Work Phone: Start: 11-05-2018 End: 06-26-2020 Tobacco smoking status NHIS Former smoker [facility] Work Phone: End: 02-06-2016 History of tobacco use Current smoker [facility] Work Phone: End: 02-06-2016 History of tobacco use Cigar Smoker [facility] Work Phone: Start: 02-05-2018 End: 06-26-2020 Tobacco use and exposure Never used [facility] Work Phone: Start: 06-26-2020 End: 05-20-2022 Alcohol intake Current drinker of alcohol (finding) [facility] Work Phone: Start: 07-08-2018 Alcohol Comment 2 times per wo rk, occasionally liquor [facility] Work Phone: Start: 05-10-2022 End: 05-20-2022 Exposure to SARS-CoV-2 (event) Not sure [facility] Work Phone: Start: 09-22-2020 End: 05-20-2022 Alcohol intake [facility] Start: 1955 Sex Assigned At Male [facility] End: 02-06-2016 History of tobacco use Cigarette Smoker [facility] Start: 05-20-2022 End: 10-02-2023 Tobacco use panel [facility] How often to you have a drink containing alcohol? Never [facility] How many standard drinks containing alcohol do you have on a typical day? Patient does not drink [facility] Start: 11-29-2021 End: 08-16-2024 Sex Male (finding) [facility] Tobacco smoking status NHIS Unknown if ever smoked [facility] Work Phone: NEGATED: Highlighted rowStart: 05-22-2019 End: 05-22-2019 Alcohol use Alcohol use [facility] Work Phone: NEGATED: Highlighted rowStart: 05-22-2019 End: 05-22-2019 Assertion Current some day smoker [facility] Work Phone: NEGATED: Highlighted rowStart: 05-22-2019 End: 05-22-2019 Details of drug misuse behavior Details of drug misuse behavior [facility] Work Phone: NEGATED: Highlighted rowStart: 05-22-2019 End: 05-22-2019 Tobacco use and exposure Tobacco use and exposure [facility] Work Phone: Clinical Notes 03-18-2021 to [...] to fax the information to the office. [phone] [facility] 05-03-2024 Miscellaneous Notes Gissel is calling to let Dr. Burgos know that the medication he prescribed he not certified, she is going to fax the information to the office. [phone] documented in this encounter [facility] 11-22-2023 History of Presen t illness Narrative Images from the original note were not included. Speech-Language Pathology SPEECH LANGUAGE PATHOLOGY [facility] Modified Barium Swallow Study Patient [...] despite effort. 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 Frequency: Per treating HOG PUSHER Barriers: large osteophytes, bridging with anterior projection [...] Prior MBSS?: No, unable to locate in [facility] Current Diet: Puree diet with ?liquid (no information from [place]) Textures tested: - thin liquid, (cup edge) - mildly thick liquid, (cup edge) - puree, (teaspoon) Patient position: lateral Past Medical History: Past Medical History: Diagnosis Date TREVER (acute kidney injury) ([facility]) ([facility]) Alcohol abuse 07/08/2018 Anxiety C1 spinal cord injury ([facility]) ([facility]) Depression Fall 06/2018 Schizophrenia ([facility]) Past Surgical History: Past Surgical History: Procedure Laterality Date CERVICAL FUSION 07/09/2014 C2-6 cervical fusion GASTROSTOMY TUBE PLACEMENT 07/13/2018 TRACHEOSTOMY 07/13/2018 Admission Diagnosis: Patient Active Problem List Diagnosis Date Noted Respiratory syncytial virus (RSV) 03/22/2021 Hypoxia 03/19/2021 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[facility]) ([facility]) 08/16/2018 Chronic latent schizophrenia ([facility]) 08/15/2018 Prolonged Q-T interval on ECG 08/15/2018 Abdominal wall abscess 08/15/2018 Central cord syndrome ([facility]) ([facility]) 08/15/2018 Respiratory failure after trauma ([facility]) 08/15/2018 Pressure ulcer of sacral region, stage 2 ([facility]) 08/09/2018 Urinary retention 07/28/2018 Acute respiratory failure with hypoxia ([facility]) 07/26/2018 Mild bibasilar atelectasis 07/26/2018 Hospital-acquired pneumonia 07/26/2018 Bilateral pleural effusion 07/26/2018 Ileus (CMS/HCC) ([facility]) 07/23/2018 TREVER (acute kidney [...] from 2019. Pt is currently decannulated. 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 Noted very large connective [...] able to eat by mouth. Therapy Time HOG PUSHER Individual Minutes Time In: 1150 Time Out: 1215 Minutes: 25 ZACHARY Sun documented in this encounter [facility] 10-02-2023 Emergency department Note [facility] at bedside at this time Mami Lantigua RN 10/02/23 1197 [facility] 10-02-2023 Emergency department Note [facility] at bedside at this time Mami Lantigua RN 10/02/23 1427 This RN gave report to Marnie at [facility] at this time Mami Lantigua RN 10/02/23 1358 This RN went to evaluate patient, was on 2L o2 and does not wear at baseline, plan is dc, this RN turned o2 off to trial patient, spo2 monitor on Mami Lantigua RN 10/02/[address] cart Eloisa Alfaro RN 10/02/23 1043 Emergency Department Encounter [facility] ED Patient: Kathya Hooper : 1955 [...] are mis-transcribed.) Fei Farooq MD Acute Care [facility] Fei Farooq MD 10/02/23 1748 Pt was brought in [facility] from [facility] for Left sided facial droop. Per EMS nurse is new and does not know patient very well but he is A&O x 2 at baseline. Per EMS the nurse states it was 20 mins ago. 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 EMS states [...] schizophrenia. BS 131. documented in this encounter [facility] 10-02-2023 Emergency department Note This RN gave report to Marnie at [facility] at this time Mami Lantigua RN 10/02/23 4979 [facility] 10-02-2023 Emergency department Note This RN went to evaluate patient, was on 2L o2 and does not wear at baseline, plan is dc, this RN turned o2 off to trial patient, spo2 monitor on Mami Lantigua RN 10/02/23 1325 [facility] 10-02-2023 Emergency department Note Pt to ct via cart Eloisa Alfaro RN 10/02/23 1043 [facility] 10-02-2023 Emergency department Triage note Pt was brought in via [facility] from [facility] for Left sided facial droop. Per EMS nurse is new and does not know patient very well but he is A&O x 2 at baseline. Per EMS the nurse states it was 20 mins ago. 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 EMS states [...] facility. Hx of schizophrenia. BS 131. T [facility] 10-02-2023 Physician Emergency department Note Emergency Department Encounter [facility] ED Patient: Kathya Hooper : 1955 [...] [employer] Fei Farooq MD 10/02/23 1129 [employer] Work Phone: 05-20-2022 Emergency department Note Report called to care home. Copy of Xray report sent with discharge packet Gary Ghosh RN 05/20/222007 [employer] 05-20-2022 Emergency department Note Report called to care home. Copy of Xray report sent with discharge packet Gary Ghosh RN 05/20/222007 Emergency Department Encounter [facility] ED Patient: Kathya Hooper : 1955 Date of Evaluation: 05/20/2022 ED Supervising Physician: Abelardo Rios DO I independently examined and evaluated Kathya Hooper. This will serve as my Supervisory note as the tourist guide of record and shared attestation. I did [...] Rios DO 05/20/222014 documented in this encounter [facility] 05-20-2022 Miscellaneous Notes Associated Order(s): Feeding Tube Replacement Procedure Feeding Tube Replacement Performed by: Dejah Hazel DO Authorized by: Abelardo Rios DO Consent: Consent obtained: Verbal Consent given by: Patient Sterling protocol: Patient identity confirmed: Verbally with patient [...] DO Resident 05/20/221931 documented in this encounter [employer] 05-20-2022 Note Associated Order(s): Feeding Tube Replacement Procedure Feeding Tube Replacement Performed by: Dejah Hazel DO Authorized by: Abelardo Rios DO Consent: Consent obtained: Verbal Consent given by: Patient [place] protocol: Patient identity confirmed: Verbally with patient [...] immediate complications Dejah Hazel DO Resident 05/20/221931 [employer] Phone: 05-20-2022 Note Associated Order(s): Feeding Tube Replacement Procedure Feeding Tube Replacement Performed by: Dejah Hazel DO Authorized by: Abelardo Rios DO Consent: Consent obtained: Verbal Consent given by: Patient [place] protocol: Patient identity confirmed: Verbally with patient [...] immediate complications Dejah Hazel DO Resident 05/20/221931 [employer] Phone: 05-20-2022 Physician Emergency department Note Emergency Department Encounter [facility] ED Patient: Kathya Hooper : 1955 Date of Evaluation: 05/20/2022 ED Supervising Physician: Abelardo Rios DO I independently examined and evaluated Kathya Hooper. This will serve as my Supervisory note as the tourist guide of record and shared attestation. I did [...] [employer] Abelardo Rios DO 05/20/222014 [employer] Work Phone: 03-24-2021 Note Hospitalist Discharg e [...] with antibiotics. He resides in [facility]. He was stablized and discharged Diet NPO [...] Result Date: 03/18/2021 [id number] Computed Tomography ACCESSION EXAM DATE/TIME PROCEDURE ORDERING PROVIDER [id number] 03/18/2021 16:26 EST CTA Head/Neck w/ + w/o [id number] -alyson CASTRO CPT code 37451 02021 Q9967 Reason For Exam (CTA Head/Neck w/ [...] at the (more content not included)... [facility] 03-24-2021 Hospital course Narrative Hospitalist Discharge [...] with antibiotics. He resides in [facility]. He was stablized and discharged Diet NPO [...] Tomography ACCESSION EXAM DATE/TIME PROCEDURE ORDERING PROVIDER [id number] 03/18/2021 16:26 EST CTA Head/Neck w/ + w/o [id number] -alyson CASTRO CPT code 67074 32716 Q9967 Reason For Exam (CTA Head/Neck w/ [...] (PE study) Result Date: 03/18/2021 Patient Name: KTAHYA HOOPER Computed Tomography ACCESSION EXAM DATE/TIME PROCEDURE ORDERING PROVIDER [id number] 03/18/2021 16:27 EST CTA Chest w/ + w/o [id number] -Alyson CASTRO CPT code 15583 Q9967 Reason For Exam (CTA Chest w/ [...] Radiology ACCESSION EXAM DATE/TIME PROCEDURE ORDERING PROVIDER [id number] 03/19/2021 17:10 EST CR Chest Portable [id number] -BRADY DESAI CPT code 21918 Reason For Exam (CR Chest Portable) hypoxia [...] Result Date: 03/18/2021 Patient Name: KATHYA HOOPER [facility]#: [id number] Diagnostic Radiology ACCESSION EXAM DATE/TIME PROCEDURE ORDERING PROVIDER [id number] 03/18/2021 15:30 EST CR Chest Portable [id number] -CASTRO BOO CPT code 29167 Reason For Exam (CR Chest Portable) sob, [...] Immunization History Administered Date(s) Administered Pneumococcal Polysaccharide ([id number]) 01/10/2017 Tdap (Boostrix, Adacel) 01/10/2017 Active Problems: [...] (84.3 kg) Mental Status: {IP PT MENTAL STATUS:58673} IV Access: { CHRIS IV ACCESS:676596833} Nursing Mobility/ADLs: Walking {P DME ADLs:481367702} Transfer {P DME ADLs:480880509} Bathing {P DME ADLs:222086632} Dressing {P DME ADLs:164471086} Toileting {P DME ADLs:216754299} Feeding {P DME ADLs:555762739} Store Receiver {P DME ADLs:157887474} Med Delivery { CHRIS MED Delivery:714688312} Wound Care Documentation and Therapy: Negative Pressure Wound Therapy Abdomen Left (Active) Number of days: 947 Wound Sacrum Mid (Active) Number of days: Elimination: Continence: Bowel: {YES / NO:} Bladder: {YES / NO:} Urinary Catheter: {Urinary Catheter:545075088} Colostomy/Ileostomy/Ileal Conduit: {YES / NO:} Date of Last BM: No intake or output data in the 24 hours ending 03/24/21 1013 I/O last 3 completed shifts: In: 660 [NG/GT:660] Out: - Safety Concerns: { CHRIS Safety Concerns:709689549} Impairments/Disabilities: { CHRIS Impairments/Disabilities:28588669 3} Nutrition Therapy: Current Nutrition Therapy: { CHRIS Diet List:646863829} Routes of Feeding: {[facility] Other Feedings:103249908} Liquids: {[facility] liquid thickness:86680} Daily Fluid Restriction: {[facility] DME Yes amt example:716910190} Last Modified Barium Swallow with Video (Video Swallowing Test): {Done Not Done Date:} Treatments at the Time of Hospital Discharge: Respiratory Treatments: Oxygen Therapy: {Therapy; copd oxygen:15066} Ventilator: {[facility] Vent List:271432026} Rehab Therapies: {THERAPEUTIC INTERVENTION:4279765776} Weight Bearing Status/Restrictions: {[facility] Weight Bearin} Other Medical Equipment (for information only, NOT a DME order): {EQUIPMENT:979760817} Other Treatments: Patient's personal belongings (please select all that are sent with patient): {[facility] DME Belongings:448503778} RN SIGNATURE: {Esignature:368667036} CASE MANAGEMENT/SOCIAL WORK SECTION Inpatient Status Date: Readmission Risk Assessment Score: Readmission Risk Risk of Unplanned Readmission: 25 Discharging to Facility/ Agency Name: [facility] Address: [address] [place] [address] Dialysis Facility (if applicable) Name: Address: Dialysis Schedule: Phone: Fax: Fruit Sprayer/Neonatal Doctor signature: PHYSICIAN SECTION Prognosis: Good Condition at [...] loss Fluid Accumulation: No significant fluid accumulation Chair Springer Strength: Not Performed Estimated Daily Nutrient Needs: Energy (kcal): 4455-5564 (25-30 kcal/kg IBW); Weight Used for Energy Requirements: [place] (86.2 kg) Protein (g): 86-103 (1.0-1.2 g protein/kg IBW); Weight Used for Protein Requirements: [place] (86.2 kg) Fluid (ml/day): per MD. At [...] on 03/02/21, October weight= 185.5# on 01/29/21) [place] Body Weight: 190 lbs; % [place] Body Weight 97.8 % BMI: 24 Adjusted [...] Skin, Weight Discharge Planning: Enteral Nutrition Contact: *[phone] Images from the original note were not included. Hospitalist Progress Note 03/23/2021 9:27 AM Subjective: Admit Date: 03/19/2021 PCP: No primary care provider on file. Room#: 465/0276 Patient seen and examined. Laying in bed. [...] from the original note were not included. [facility], Pulmonary Critical Care and Sleep Medicine [address] [place] [address] Patient - Kathya Hooper, Age - 66 y.o. - 1955 Room Number - [facility]/7166 Consulting - Rafa Michel MD Primary Care Physician - No primary care provider on file. [id number] Date of Admission - 03/19/2021 3:52 PM [...] of bed. Pt thought there was a asbestos microscopist in the corner of his room. When pt got his meds he calmed down. Pt now watching tv. Call light within reach. Bed alarm on. Images from the original note were not included. [facility], Pulmonary Critical Care and Sleep Medicine [address] [place] [address] Patient - Kathya Hooper, Age - 66 y.o. - 1955 Room Number - [facility]/4651 Consulting - Rafa Michel MD Primary Care Physician - No primary care provider on file. [facility] [id number] Date of Admission - 03/19/2021 3:52 PM [...] 66 y.o. - 1955 Room Number - 787/844[facility] - [address] Date of Admission - 03/19/2021 3:52 PM [...] Date 03/21/21 0000 - 03/21/21 2359 Shift 0100-7125 7149-9755 8216-5216 24 Hour Total INTAKE NG/GT(mL/kg) 542(6.4) 542(6.4) [...] included. Hospitalist Progress Note 03/21/2021 9:41 AM [phone]: Please page me for patient care issues. [phone]: Please page [facility] Hospitalist for any issues. Subjective: Admit [...] and s/p Trach PEG 07/13/2018. Presented from [facility] to [facility] ED with worsening SOB. Evaluated in [...] loss Fluid Accumulation: No significant fluid accumulation Chair Springer Strength: Not Performed Estimated Daily Nutrient Needs: Energy (kcal): 1357-3950 (25-30 kcal/kg IBW); Weight Used for Energy Requirements: [place] (86.2 kg) Protein (g): 86-103 (1.0-1.2 g protein/kg IBW); Weight Used for Protein Requirements: [place] (86.2 kg) Fluid (ml/day): per MD. At facility receivin mL free water daily from EN and flushes; Method Used for Fluid Requirements: Other (Comment) Nutrition Related Findings: Massimo score= 15. No skin breakdown or edema noted. S/p Trach/PEG, per HOG PUSHER note, does not take any food, drink [...] on 03/02/21, October weight= 185.5# on 01/29/21) [place] Body Weight: 190 lbs; % [place] Body Weight 97.8 % BMI: 23.9 BMI [...] Nutrition Contact: 2430 Speech Language Pathology Facility/Department: [facility] TELEMETRY CLINICAL BEDSIDE SWALLOW EVALUATION NAME: [...] states that she is the only family [phone] Images from the original note were not included. Hospitalist Progress Note 03/20/2021 9:58 AM [phone]: Please page me for patient care issues. [phone]: Please page [facility] night Hospitalist for any issues. Subjective: Admit Date: 03/19/2021 PCP: No primary care provider on file. Room#: 727/1798 Interval History: He continues to have cough [...] Narrative NIF -20 documented in this encounter [facility] Work Phone: 03-18-2021 Hospital Discharg Boo Stringer MD - 03/18/2021 Mr. Hooper was seen at the [facility] emergency department for low oxygen levels. [...] cannot be sent through Care Everywhere.Viral Infections (Azerbaijani)documented in this encounter [facility] Work Phone: Evaluation note Diagnosis PEG tube malfunction (HCC)- Primary Mechanical complication of gastrostomy documented in this encounter [facility] Work Phone: Evaluation note* Diagnosis Feeding tube dysfunction, initial encounter- Primary documented in this encounter [facility] Work Phone: Evaluation note* Diagnosis Respiratory syncytial virus (RSV)- Primary Hypoxia Hypoxemia documented in [facility] Work Phone: Evaluation note* Diagnosis Respiratory syncytial virus (RSV)- Primary Hypoxia Hypoxemia documented in [facility] encounter [facility] Work Phone: Evaluation note* Diagnosis PEG tube malfunction (HCC)- Primary Mechanical complication of gastrostomy documented in this encounter [facility] Work Phone: Evaluation note* Diagnosis Contusion of right hip, initial encounter- Primary documented in this encounter [facility] Work Phone: Evaluation noteNo assessment information available [facility] Work Phone: Evaluation note* Diagnosis Dyspnea, unspecified type- Primary documented in this encounter [facility]* Diagnosis Dysphagia, oropharyngeal phase Feeding difficulties Feeding difficulties and mismanagement [facility] Diagnosis Dysphagia, oropharyngeal phase- Primary Feeding difficulties Feeding difficulties and mismanagement Dysphagia, oropharyngeal phase Feeding difficulties Feeding difficulties and mismanagement documented in this encounter [facility] note* Diagnosis Dislodged gastrostomy tube- Primary [facility]* Diagnosis Chronic cough Cough documented in this encounter [facility] note* Diagnosis Chronic cough- Primary Cough Chronic cough Cough [facility] Attachments The following attachments cannot be sent through Care Everywhere. * PEG (Percutaneous Endoscopic Gastrostomy): Post-op (Azerbaijani) documented in this [facility] Work Phone: Hospital Discharge instructions* Attachments The following attachments cannot be sent through Care Everywhere. * Feeding Tube: General Info (Azerbaijani) documented in this [facility]* Instructions* Mary Cochran PA-C - 05/15/2021 Please return to the ED if you have any new or worsening symptoms. documented in this [facility] Work Phone: Hospital Discharge instructions* Attachments The following attachments cannot be sent through Care Everywhere. * Hip Pain (Azerbaijani) * Contusion (Azerbaijani) documented in this [facility] Work Phone: Hospital Discharge instructions* Attachments The following attachments cannot be sent through Care Everywhere. * Shortness of Breath (Dyspnea) Discharge Instructions (Azerbaijani) documented in this [facility] Discharge instructions* Attachments The following attachments cannot be sent through Care Everywhere. * How to Care for Your Gastrostomy Tube (Azerbaijani) [facility] (narrative)No reason for referral information availableWCleveland [facility] Work Phone: Reason for visit Narrative* Imaging (Routine) - Closed Specialty Diagnoses / Procedures Referred By Soo stewart Referred To Contact Radiology Diagnoses Chronic cough Procedures CT chest wo IV contrast Rashaad Smith APRN - SIM [id number] [address] Phone: tel: fax: Referral ID Status Reason Start Date Expiration Date Visits Re quested Visits Authorized [id number] Closed 06/12/2024 06/12/2025 1 1 [facility] Summary Purpose Family History No Family History Records FoundNo Family History Records FoundThere may be information available, but it has not been provided by the sender.No Family History Records FoundNo Family History Records FoundNo Family History Records FoundNo Family History Records Found Advance Directives No Advanced Directives Records FoundDocuments on File Type Date Recorded Patient Pcas Expl anation ACP-Advance Directive ACP-Advance Directive 08/07/2018 1:53 PM ACP-Power of Help Desk Associate Latest Code Status on File Code Status Date Activated Date Inactivated Comments Full Code 08/15/2018 8:27 PM 08/22/2018 4:31 PM Full Code 08/15/2018 8:12 PM 08/15/2018 8:27 PM Full Code 07/08/2018 8:28 PM 08/01/2018 2:39 PM Documents on File Type Date Recorded Patient Pcas Expl anation ACP-Advance Directive ACP-Power of Help Desk Associate ACP-Advance Directive 08/07/2018 1:53 PM Latest Code Status on File Code Status Date Activated Date Inactivated Comments Full Code 03/20/2021 12:17 AM Full Code 08/15/2018 8:27 PM 08/22/2018 4:31 PM Documents on File Type Date Recorded Patient Pcas Expl anation ACP-Advance Directive ACP-Power of Help Desk Associate ACP-Advance Directive 03/26/2021 9:48 AM ACP-Advance Directive 08/07/2018 1:53 PM Latest Code Status on File Code Status Date Activated Date Inactivated Comments Full Code 03/20/2021 12:17 AM 03/24/2021 3:23 PM Documents on File Type Date Recorded Patient Pcas Expl anation Advance Directives and Livin g Will Advance Directives and Livin g Will 08/07/2018 1:53 PM Power of Help Desk Associate Documents on File Type Date Recorded Patient Pcas Expl anation Advance Directives and Livin g Will 05/23/2022 10:48 AM Advance Directives and Livin g Will 03/19/2021 Documents on File Type Date Recorded Patient Pcas Expl anation Advance Directives and Living Will 03/19/2021 Documents on File Type Date Recorded Patient Pcas Expl 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 * Feeding Tube: General Info (Azerbaijani) documented in this encounter Assessments Diagnosis PEG [...] WORK LABWORK RETIREMENT LABWORK RETIREMENT LAB WORK LABWORK\ Chief Complaint LABWORK RETIREMENT LABWORK LABWORK RETIREMENT LAB WORK RETIREMENT LAB WORK RETIREMENT LABWORK RETIREMENT LABWORK RETIREMENT LAB WORK RETIREMENT LAB WORK RETIREMENT LABWORK LABWORK RETIREMENT LAB WORK LABWORK RETIREMENT LABWORK RETIREMENT LAB WORK LABWORK\ LABWORK Chief Complaint RETIREMENT LAB WOR K RETIREMENT LAB WORK RETIREMENT LABWORK RETIREMENT LABWORK RETIREMENT LAB WORK RETIREMENT LAB WORK RETIREMENT LABWORK LABWORK RETIREMENT LAB WORK LABWORK RETIREMENT LABWORK RETIREMENT LAB WORK LABWORK\ LABWORK RETIREMENT LAB WORK LABWORK Chief Complaint RETIREMENT LAB WOR K RETIREMENT LABWORK RETIREMENT LABWORK RETIREMENT LAB WORK RETIREMENT LAB WORK RETIREMENT LABWORK LABWORK RETIREMENT LAB WORK LABWORK RETIREMENT LABWORK RETIREMENT LAB WORK LABWORK\ LABWORK RETIREMENT LAB WORK LABWORK LABWORK Chief Complaint RETIREMENT LABWORK RETIREMENT LABWORK RETIREMENT LAB WORK RETIREMENT LAB WORK RETIREMENT LABWORK LABWORK RETIREMENT LAB WORK LABWORK RETIREMENT LABWORK RETIREMENT LAB WORK LABWORK\ LABWORK RETIREMENT LAB WORK LABWORK RETIREMENT LABWORK LABWORK Chief Complaint RETIREMENT LAB WOR K RETIREMENT LABWORK LABWORK RETIREMENT LAB WORK LABWORK RETIREMENT LABWORK RETIREMENT LAB WORK LABWORK\ LABWORK RETIREMENT LAB WORK LABWORK RETIREMENT LABWORK LABWORK RETIREMENT LABWORK RETIREMENT LAB WORK LABWORK RETIREMENT LAB WORK Chief Complaint RETIREMENT LABWORK LABWORK RETIREMENT LAB WORK LABWORK RETIREMENT LABWORK RETIREMENT LAB WORK LABWORK\ LABWORK RETIREMENT LAB WORK LABWORK RETIREMENT LABWORK LABWORK RETIREMENT LABWORK RETIREMENT LAB WORK LABWORK RETIREMENT LAB WORK LABWORK Chief Complaint RETIREMENT LAB WOR K LABWORK RETIREMENT LABWORK RETIREMENT LAB WORK LABWORK\ LABWORK RETIREMENT LAB WORK LABWORK RETIREMENT LABWORK LABWORK RETIREMENT LABWORK RETIREMENT LAB WORK LABWORK RETIREMENT LAB WORK LABWORK LABWORK Chief Complaint RETIREMENT LAB WOR K LABWORK\ LABWORK RETIREMENT LAB WORK LABWORK RETIREMENT LABWORK LABWORK RETIREMENT LABWORK RETIREMENT LAB WORK LABWORK RETIREMENT LAB WORK LABWORK LABWORK LABWORK LABWORK LABWORK Chief Complaint LABWORK\ LABWORK RETIREMENT LAB WORK LABWORK RETIREMENT LABWORK [...] WORK LABWORK RETIREMENT LABWORK RETIREMENT LAB WORK LABWORK\ LABWORK RETIREMENT LAB WORK LABWORK RETIREMENT LABWORK LABWORK RETIREMENT LABWORK Chief Complaint RETIREMENT LABWORK RETIREMENT LAB WORK RETIREMENT LAB WORK RETIREMENT LABWORK LABWORK RETIREMENT LAB WORK LABWORK RETIREMENT LABWORK RETIREMENT LAB WORK LABWORK\ LABWORK RETIREMENT LAB WORK LABWORK RETIREMENT LABWORK [...] Date LABWORK October 28, 2024 5:00 am RETIREMENT LAB WORK November 04, 2024 4:0 0am RETIREMENT LAB WORK November 11, 2024 5: 00am RETIREMENT LAB WORK November 18, 2024 5: 00am LABWORK November 25, 2024 5:00 am RETIREMENT LAB WORK December 02, 2024 5 :00am RETIREMENT LAB WORK December 09, 2024 4:00am RETIREMENT LAB WORK December 16, 2024 4:00am LABOWRK December 23, 2024 5: 00am RETIREMENT LAB WORK December 31 5:00am RETIREMENT LAB WORK January 06 4:00am RETIREMENT LAB WORK January 10 5:00am LABWORK January 13, 2025 5:00am RETIREMENT LAB WORK January 20 4:00am RETIREMENT LAB WORK January 27 4:00am RETIREMENT LAB WORK February 03, 2025 5:00am RETIREMENT LAB WORK February 10, 2025 4:00am Additional [...] DATE CREATED AUTHOR AUTHOR'S ORGANIZ ATION 03/12/2025 [facility] Source Comments (unrecognize d section and content) In the event this informatio n is protected by the Federal Confidentiality of Alcohol and Drug Abuse Patient Records regulations: The Federal rules restrict any use of the information to criminally investigate or prosecute any alcohol or drug abuse patient.[facility] Reason for Visit (unrecogniz ed section and [...] 03/20/21 at 1200 0953 (Given - Provider: Amelei Taylor [facility])1356 (Given - Provider: Amelie Taylor, [facility])1648 (Given - Provider: Amelie Taylor [facility])2212 (Given - Provider: Claire Lagos [facility]) 0841 (Given - Provider: Ana Cabrera [facility])1213 (Given - Provider: Ana Cabrera [facility])1622 (Given - Provider: Ana Cabrera [facility])2037 (Given - Provider: Perla Loyola [facility]) 1020 (Given - Provider: Gabriel Soares [facility])1200 (Due)1600 (Due)2000 (Due) lansoprazole (PREVACID SOLUTAB) [...] 2323 1003 (Given - Provider: Amelie Taylor, [facility])2215 (Given - Provider: Claire Lagos [facility]) 0841 (Given - Provider: Ana Cabrera [facility])2051 (Given - Provider: Perla Loyola, [facility]) 1200 (Due - Provider: Gabriel Soares [facility])2100 (Due) sodium chloride flush 0.9 % [...] Status Dates Renard Burgos Attending Provider Active Paint Roller Covermaker Relationship Specialty Start Date End Date Renard Burogs [address] [place] [id number] PCP - General Internal Medicine 10/16/23 [employer] Roller Covermaker Relationship Specialty Start Date End Date Renard Burgos [address] [place] [phone] PCP - General Internal Medicine 10/16/23 Paint Roller Covermaker Relationship Specialty Start Date End Date ShellieRenard easton [address] [place] [phone] PCP - General Internal Medicine 10/16/23 Paint Roller Covermaker Relationship Specialty Start Date End Date Loretta Renard [address] [facility] [address] [place] [phone] PCP - General Internal Medicine 10/16/23 Team [...] Provider Active Sta rt: September 09, 2024 Paint Roller Covermaker Relationship Specialty Start Date End Date Renard Burgos [address] [facility] [address] [place] [phone] PCP - General Internal Medicine 10/16/23 Team [...] BE BASED ON THE PRIMARY CLINICAL RECORDS. [facility] [employer] provides no warranty or guarantee of the accuracy or completeness of information in this document.
[2025-04-28 08:05] LABS: Hematocrit 39.7 % (40-54); Hemoglobin 13.4 g/dL (13.0-16.5); Immature Granulocytes Count 0.050 X10^3/uL (0.0-0.0); Mean Corp Hgb Conc 33.8 g/dL (32-36); Mean Corpuscular Volume 88.0 fL (80-94); Mean Platelet Vol. 10.5 fl (6.2-12.0); NRBC Flagged by Analyzer 0 % (0-5); Platelet Count 283 K/mm3 (150-450); RBC Distribution Width CV 12.8 % (11.6-14.6); RBC Distribution Width SD 41.0 fl (35.1-43.9); Red Blood Count 4.51 M/mm3 (4.6-6.2); White Blood Count 8.7 K/mm3 (4.4-11.0)
[2025-04-28 08:22] LABS: AST(SGOT) 35 U/L (<=37); Alanine Aminotransfer ALT/SGPT 37 U/L (<=46); Albumin, Serum 3.5 g/dL (3.4-4.8); Alkaline Phosphatase 95 U/L (40-129); Anion Gap 9 (7-18); BUN 20 mg/dL (4-19); BUN/Creat Ratio 29.4 RATIO (10-20); Calcium,Total 8.8 mg/dL (7.6-11.0); Carbon Dioxide 27.1 mmol/L (20.0-29.0); Chloride 102 mmol/L (96-106); Globulin 2.7 g/dL (2.2-4.2); Glucose 116 mg/dL (70-99); Potassium 4.0 mmol/L (3.5-5.1)
== END ==
LOC: OLS.SANC 05:00
PROVIDERS: Visit Provider Internal Medicine
DX: Z79.899 Other long term (current) drug therapy (principal)
CPT/HCPCS: 36415; 80053; 85025